=== PATIENT | male | born 1990 | race Caucasian/White ===

== ENCOUNTER 2018-03-31 10:51 | Outpatient (REF) | payer MEDICAID, SELFPAY ==
[2018-03-31 19:26] LABS: Abs Immature Grans 0.13 k/cumm (0.0-0.09); Absolute Basophil Count 0.05 k/cumm (0.0-0.2); Absolute Eosinophil Count 0.51 k/cumm (0.0-0.7); Absolute Lymphocyte Count 1.77 k/cumm (1.2-3.4); Absolute Monocyte Count 0.77 k/cumm (0.11-0.7); Absolute Neutrophil Count 3.99 k/cumm (1.2-6.7); Basophils % 0.7; Eosinophils % 7.1; HCT 50.6 % (40.0-50.0); HGB 17.7 g/dL (13.5-17.5); Immature Grans % 1.8; Lymphocytes % 24.5; Mean Corpuscular Hemoglobin 31.7 pg (27.0-33.0); Mean Corpuscular Volume 90.7 fL (80-95); Mean Platelet Volume 10.4 fL (8.0-11.0); Monocytes % 10.7; Neutrophils % 55.2; Platelet Count 238 x1000/uL (130-400); RBC 5.58 m/cumm (4.50-6.00); RBC Distribution Width 12.6 % (11.8-14.1); White Blood Cell Count 7.22 k/cumm (4.4-10.8)
[2018-03-31 19:29] LABS: ALT 63 U/L (12-78); AST 21 U/L (15-37); Albumin 4.1 g/dL (3.4-5.0); Alkaline Phosphatase 58 U/L (46-116); Anion Gap 6.5 mmol/L (3-11); BUN 14 mg/dL (7-18); Bilirubin, Total 0.6 mg/dL (0.2-1.0); CO2 27.5 mmol/L (21.0-32.0); CREATININE 0.84 mg/dL (0.70-1.30); Calcium 9.1 mg/dL (8.5-10.1); Chloride 104 mmol/L (98-107); Glucose 92 mg/dL (70-100); Potassium 4.2 mmol/L (3.5-5.1); Sodium 138 mmol/L (136-145); Total Protein 7.1 g/dL (6.4-8.2)
== END 2018-03-31 10:52 ==
LOC: NCHCN 10:51
PROVIDERS: PCP Physician Assistant; Visit Provider Nurse Practitioner Family
DX: K92.0 Hematemesis (principal)
CPT/HCPCS: 80053; 85025

== ENCOUNTER 2020-01-17 21:55 | Outpatient (REF) | payer OTHER, SELFPAY ==
[2020-01-17 20:39] LABS: Anion Gap 11.6 mmol/L (3-11); BUN 19 mg/dL (7-18); CO2 26.4 mmol/L (21.0-32.0); Calcium 9.1 mg/dL (8.5-10.1); Chloride 102 mmol/L (98-107); Glucose 83 mg/dL (74-106); Potassium 3.7 mmol/L (3.5-5.1); Sodium 140 mmol/L (136-145)
== END 2020-01-17 22:15 ==
LOC: NCHCN 21:55
PROVIDERS: PCP Physician Assistant; Visit Provider Physician Assistant
DX: I10 Essential (primary) hypertension (principal)
CPT/HCPCS: 80048

== ENCOUNTER 2022-04-21 10:59 | Outpatient (REF) | payer MEDICAID, SELFPAY ==
--- OUTSIDE RECORDS SUMMARY | 2022-04-21 11:02 | XMS_ITS | Continuity of Care Document ---
:1990 Author Organization [facility] Address Unavailable , Care Team Providers Name Role Phone Pau Strong Primary Care Physician Encounter [facility] Date(s): 03/23/22 - 04/09/22 [facility] [address] [place] [address]- Encounter Diagnosis Protein calorie malnutrition (Discharge Diagnosis) - 03/23/22 Encounter for continuous renal replacement therapy (CRRT) for acute renal failure (Discharge Diagnosis) - 03/23/22 Transaminitis (Discharge Diagnosis) - 03/23/22 ALTHEA (acute kidney injury) (Discharge Diagnosis) - 03/23/22 Physical deconditioning (Discharge Diagnosis) - 03/23/22 History of fasciotomy (Discharge Diagnosis) - 03/23/22 Rhabdomyolysis (Discharge Diagnosis) - 03/23/22 Acute COVID-19 (Discharge Diagnosis) - 03/23/22 Pneumonia (Discharge Diagnosis) - 03/23/22 Acute kidney failure, unspecified (Final) - Enterocolitis due to Clostridium difficile, not specified as recurrent (Final) - Essential (primary) hypertension (Final) - Anemia, unspecified (Final) - Cardiac arrest (Discharge Diagnosis) - 03/23/22 Compartment syndrome (Discharge Diagnosis) - 03/23/22 COVID-19 (Final) - Other cerebral infarction (Final) - Personal history of sudden cardiac arrest (Final) - Opioid use, unspecified, uncomplicated (Final) - 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 Extracted from: Title: SOAP Note: Rehab Note Author: Katheryn Rosa MD Date: 04/08/22 Health Status Allergies: Allergic Reactions (All) No Known Allergies, Allergies (1) Active Severity Reaction No Known Allergies None Documented Medications Current medications: (Selected) Inpatient Medications Ordered Colace: 100 mg = 1 cap(s), Oral, BID Dilaudid: 2 mg = 1 tab(s), Oral, q8hr, P RN: Pain Dulcolax Laxative: 10 mg = 1 supp, Per r ectum, Daily, PRN: Constipation MiraLax: 17 gm = 1 packet(s), Oral, Olga y, PRN: Constipation Norvasc: 10 mg = 2 tab(s), Oral, Daily Vitamin C: 500 mg = 1 tab(s), Oral, Olga y acetaminophen: 650 mg = 2 tab(s), Oral, q4hr, PRN: Pain apixaban: 5 mg = 1 tab(s), Oral, BID bacitracin zinc 500 units/g topical oint ment: 1 rickie, TOP, q8hr, PRN: Other (see comment) calcium carbonate: 500 mg = 1 tab(s), Or al, TID hydrOXYzine: 25 mg = 1 tab(s), Oral, HS, PRN: Anxiety miconazole topical: 1 rickie, TOP, TID multivitamin with minerals: 1 tab(s), Or al, Daily nicotine 14 mg/24 hr patch, extended rel ease: 14 mg = 1 patch(es), Transdermal, Daily nicotine patch removal: Removal of 1 pat ch(es), Transdermal, Daily senna: 17.2 mg = 2 tab(s), Oral, HS suboxone: 8 mg = 1 EA, Sublingual, BID Documented Medications Documented hydroCHLOROthiazide 25 mg oral tablet: 2 5 mg = 1 tab(s), Oral, Daily, 0 Refill(s) lisinopril 10 mg oral tablet: 10 mg = 1 tab(s), Oral, Daily, 0 Refill(s) predniSONE 20 mg oral tablet: 40 mg = 2 tab(s), Oral, Daily, 0 Refill(s) triamcinolone 0.1% topical cream: 1 rickie, TOP, TID, 0 Refill(s), Medications (17) Active Scheduled: (11) amLODIPine 5 mg Tab [[facility]] 10 mg 2 tab( s), Oral, Daily apixaban 5 mg tab [[facility]] 5 mg 1 tab(s), Oral, BID ascorbic acid 500 mg Tab [[facility]] 500 mg 1 tab(s), Oral, Daily buprenorphine/naloxone film 8 mg/2 mg [[facility]] 8 mg 1 EA, Sublingual, BID calcium carbonate 500 mg Chew Tab [[facility] ] 500 mg 1 tab(s), Oral, TID docusate sodium 100 mg Cap [[facility]] 100 m g 1 cap(s), Oral, BID miconazole Top 2% Pwdr [[facility]] 1 rickie, TO P, TID nicotine 14 mg/24 hr Transderm ER Film [ [facility]] 14 mg 1 patch(es), Transdermal, Daily nicotine patch removal [[facility]] Removal o f 1 patch(es), Transdermal, Daily senna 8.6 mg Tab [[facility]] 17.2 mg 2 tab(s ), Oral, HS Therapeutic Multi Vitamin & Minerals Tab [[facility]] 1 tab(s), Oral, Daily Continuous: (0) PRN: (6) acetaminophen 325 mg Tab [[facility]] 650 mg 2 tab(s), Oral, q4hr bacitracin zinc 500 units/g Top Oint UD [[facility]] 1 rickie, TOP, q8hr bisacodyl 10 mg Supp [[facility]] 10 mg 1 sup p, Per rectum, Daily HYDROmorphone 2 mg Tab [[facility]] 2 mg 1 ta b(s), Oral, q8hr hydrOXYzine hydrochloride 25 mg Tab [[facility]] 25 mg 1 tab(s), Oral, HS polyethylene glycol 3350 Oral Pwdr Recon [[facility]] 17 gm 1 packet(s), Oral, Daily . 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: lidia for, bakari for wound care of fasciotomy sites PT OT; made independent today in room #cardiac #HTN continue norvasc 10 for BPs outpatient echo recommended after discha rge #tachycardia checked EKG last week; findings ?chronic after cardiac arrest IVF given 03/26 with no change HR improved from 120s to 100s at rest #LLE DVT LLE pain behind the knee primarily and d iffuse edema heparin 5000 tid for DVT prophylaxis america nged to [facility] Tuesday 03/27 due to concern for DVT, u/s 03/29 confirmed distal femoral DVT edema and pain ongoing LLE much but impr pete overall #ALTHEA recheck BMP in am last Cr 0.5. #hypomagnesemia, resolved received IV Mag #LLE foot drop MPS, AFO EMG scheduled as outpatient with neuro c onsult. #Cdiff continue vanco until 03/26, 7d after Abx ended meropenem 03/19 #Covid given recent Covid infection, did not te st at admission. #anemia CBC in am, last Hb 8.9, 9.2 on admission trending up #Nutrition regular, marinol to stimulate appetite; pt declines at times #h/o opioid abuse initiated suboxone while at , now at d ose 8 mg bid which will stay stable Will need f/u with [facility] clinic at discharge [phone], arramged for 04/12 at 1pm #Pain managed with acetaminophen, dilaudid 2-4 q4 prn, goal to taper off dilaudid before discharge have cut back from 4 q4 prn to 2 q8 prn anticipate will not need prescription at discharge #DME The patient will need a wheelchair for m obility at time of discharge. Mobility limitations cannot be resolved with a cane or walker. The patient's home provides enough room to maneuver the wheelchair. T he patient will be using the wheelchair in his home for ADLs. The patient has enough upper body strength to self-propel the wheelchair. The patient will need the following wheelchair parts: standard [facility] 16 wide chair for proper fit, eleva ting leg rests for left lower extremity edema management, and a general purpose cushion for skin protection. #dispo home after 2 weeks, planning 04/09 to home f/u PCP, cards, suboxone clinic 04/12 at 1pm, wound care, EMG left foot drop #Potential or actual clinically signific ant medication issues addressed per CMS regulations: YES dilaudid reduced Did the facility complete prescribed/rec ommended actions in response to the identified potentially clinically significant medication issues by midnight of the next calendar day? YES Extracted from: Title: SOAP Note: Rehab Note Author: Katheryn Rosa MD Date: 04/07/22 Health Status Allergies: Allergic Reactions (All) No Known Allergies, Allergies (1) Active Severity Reaction No Known Allergies None Documented Medications Current medications: (Selected) Inpatient Medications Ordered Colace: 100 mg = 1 cap(s), Oral, BID Dilaudid: 2 mg = 1 tab(s), Oral, q6hr, P RN: Pain Dulcolax Laxative: 10 mg = 1 supp, Per r ectum, Daily, PRN: Constipation MiraLax: 17 gm = 1 packet(s), Oral, Olga y, PRN: Constipation Norvasc: 10 mg = 2 tab(s), Oral, Daily Vitamin C: 500 mg = 1 tab(s), Oral, Olga y acetaminophen: 650 mg = 2 tab(s), Oral, q4hr, PRN: Pain apixaban: 5 mg = 1 tab(s), Oral, BID bacitracin zinc 500 units/g topical oint ment: 1 rickie, TOP, q8hr, PRN: Other (see comment) calcium carbonate: 500 mg = 1 tab(s), Or al, TID hydrOXYzine: 25 mg = 1 tab(s), Oral, HS, PRN: Anxiety miconazole topical: 1 rickie, TOP, TID multivitamin with minerals: 1 tab(s), Or al, Daily nicotine 14 mg/24 hr patch, extended rel ease: 14 mg = 1 patch(es), Transdermal, Daily nicotine patch removal: Removal of 1 pat ch(es), Transdermal, Daily senna: 17.2 mg = 2 tab(s), Oral, HS suboxone: 8 mg = 1 EA, Sublingual, BID Documented Medications Documented hydroCHLOROthiazide 25 mg oral tablet: 2 5 mg = 1 tab(s), Oral, Daily, 0 Refill(s) lisinopril 10 mg oral tablet: 10 mg = 1 tab(s), Oral, Daily, 0 Refill(s) predniSONE 20 mg oral tablet: 40 mg = 2 tab(s), Oral, Daily, 0 Refill(s) triamcinolone 0.1% topical cream: 1 rickie, TOP, TID, 0 Refill(s), Medications (17) Active Scheduled: (11) amLODIPine 5 mg Tab [[facility]] 10 mg 2 tab( s), Oral, Daily apixaban 5 mg tab [[facility]] 5 mg 1 tab(s), Oral, BID ascorbic acid 500 mg Tab [[facility]] 500 mg 1 tab(s), Oral, Daily buprenorphine/naloxone film 8 mg/2 mg [[facility]] 8 mg 1 EA, Sublingual, BID calcium carbonate 500 mg Chew Tab [[facility] ] 500 mg 1 tab(s), Oral, TID docusate sodium 100 mg Cap [[facility]] 100 m g 1 cap(s), Oral, BID miconazole Top 2% Pwdr [[facility]] 1 rickie, TO P, TID nicotine 14 mg/24 hr Transderm ER Film [ [facility]] 14 mg 1 patch(es), Transdermal, Daily nicotine patch removal [[facility]] Removal o f 1 patch(es), Transdermal, Daily senna 8.6 mg Tab [[facility]] 17.2 mg 2 tab(s ), Oral, HS Therapeutic Multi Vitamin & Minerals Tab [[facility]] 1 tab(s), Oral, Daily Continuous: (0) PRN: (6) acetaminophen 325 mg Tab [[facility]] 650 mg 2 tab(s), Oral, q4hr bacitracin zinc 500 units/g Top Oint UD [[facility]] 1 rickie, TOP, q8hr bisacodyl 10 mg Supp [[facility]] 10 mg 1 sup p, Per rectum, Daily HYDROmorphone 2 mg Tab [[facility]] 2 mg 1 ta b(s), Oral, q6hr hydrOXYzine hydrochloride 25 mg Tab [[facility]] 25 mg 1 tab(s), Oral, HS polyethylene glycol 3350 Oral Pwdr Recon [[facility]] 17 gm 1 packet(s), Oral, Daily . 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: aqua for, telfa for wound care of fasciotomy sites PT OT; S up to CGA mobility and ADLs #cardiac #HTN continue norvasc 10 for BPs outpatient echo recommended after discha rge #tachycardia checked EKG last week; findings ?chronic after cardiac arrest IVF given 03/26 with no change HR improved from 120s to 100-110s at res t #LLE DVT LLE pain behind the knee primarily and d iffuse edema heparin 5000 tid for DVT prophylaxis america nged to [facility] Tuesday 03/27 due to concern for DVT, u/s 03/29 confirmed distal femoral DVT edema and pain ongoing LLE much but impr pete overall #ALTHEA recheck BMP in am last Cr 0.5. #hypomagnesemia, resolved received IV Mag #LLE foot drop MPS, AFO EMG scheduled as outpatient with neuro c onsult. #Cdiff continue vanco until 03/26, 7d after Abx ended meropenem 03/19 #Covid given recent Covid infection, did not te st at admission. #anemia CBC in am, last Hb 8.9, 9.2 on admission trending up #Nutrition regular, marinol to stimulate appetite; pt declines at times #h/o opioid abuse initiated suboxone while at , now at d ose 8 mg bid which will stay stable Will need f/u with [facility] suboxon e clinic at discharge [phone]. #Pain managed with acetaminophen, dilaudid 2-4 q4 prn, goal to taper off dilaudid before discharge have cut back from 4 q4 prn to 2 q6 prn as pt was unable to initiate this last week or over the weekend #DME The patient will need a wheelchair for m obility at time of discharge. Mobility limitations cannot be resolved with a cane or walker. The patient's home provides enough room to maneuver the wheelchair. T he patient will be using the wheelchair in his home for ADLs. The patient has enough upper body strength to self-propel the wheelchair. The patient will need the following wheelchair parts: standard [facility] 16 wide chair for proper fit, eleva ting leg rests for left lower extremity edema management, and a general purpose cushion for skin protection. #dispo home after 2 weeks, planning 04/09 to home f/u PCP, cards, suboxone clinic, wound c are, EMG left foot drop #Potential or actual clinically signific ant medication issues addressed per [facility] regulations: YES dilaudid reduced Did the facility complete prescribed/rec ommended actions in response to the identified potentially clinically significant medication issues by midnight of the next calendar day? YES Extracted from: Title: SOAP Note: Rehab Note Author: Katheryn Rosa MD Date: 04/06/22 Health Status Allergies: Allergic Reactions (All) No Known Allergies, Allergies (1) Active Severity Reaction No Known Allergies None Documented Medications Current medications: (Selected) Inpatient Medications Ordered Colace: 100 mg = 1 cap(s), Oral, BID Dilaudid: 2 mg = 1 tab(s), Oral, q4hr, P RN: Pain Dulcolax Laxative: 10 mg = 1 supp, Per r ectum, Daily, PRN: Constipation MiraLax: 17 gm = 1 packet(s), Oral, Olga y, PRN: Constipation Norvasc: 10 mg = 2 tab(s), Oral, Daily Vitamin C: 500 mg = 1 tab(s), Oral, Olga y acetaminophen: 650 mg = 2 tab(s), Oral, q4hr, PRN: Pain apixaban: 5 mg = 1 tab(s), Oral, BID bacitracin zinc 500 units/g topical oint ment: 1 rickie, TOP, q8hr, PRN: Other (see comment) calcium carbonate: 500 mg = 1 tab(s), Or al, TID hydrOXYzine: 25 mg = 1 tab(s), Oral, HS, PRN: Anxiety miconazole topical: 1 rickie, TOP, TID multivitamin with minerals: 1 tab(s), Or al, Daily nicotine 14 mg/24 hr patch, extended rel ease: 14 mg = 1 patch(es), Transdermal, Daily nicotine patch removal: Removal of 1 pat ch(es), Transdermal, Daily senna: 17.2 mg = 2 tab(s), Oral, HS suboxone: 8 mg = 1 EA, Sublingual, BID Documented Medications Documented hydroCHLOROthiazide 25 mg oral tablet: 2 5 mg = 1 tab(s), Oral, Daily, 0 Refill(s) lisinopril 10 mg oral tablet: 10 mg = 1 tab(s), Oral, Daily, 0 Refill(s) predniSONE 20 mg oral tablet: 40 mg = 2 tab(s), Oral, Daily, 0 Refill(s) triamcinolone 0.1% topical cream: 1 rickie, TOP, TID, 0 Refill(s), Medications (17) Active Scheduled: (11) amLODIPine 5 mg Tab [[facility]] 10 mg 2 tab( s), Oral, Daily apixaban 5 mg tab [[facility]] 5 mg 1 tab(s), Oral, BID ascorbic acid 500 mg Tab [[facility]] 500 mg 1 tab(s), Oral, Daily buprenorphine/naloxone film 8 mg/2 mg [[facility]] 8 mg 1 EA, Sublingual, BID calcium carbonate 500 mg Chew Tab [[facility] ] 500 mg 1 tab(s), Oral, TID docusate sodium 100 mg Cap [[facility]] 100 m g 1 cap(s), Oral, BID miconazole Top 2% Pwdr [[facility]] 1 rickie, TO P, TID nicotine 14 mg/24 hr Transderm ER Film [ [facility]] 14 mg 1 patch(es), Transdermal, Daily nicotine patch removal [[facility]] Removal o f 1 patch(es), Transdermal, Daily senna 8.6 mg Tab [[facility]] 17.2 mg 2 tab(s ), Oral, HS Therapeutic Multi Vitamin & Minerals Tab [[facility]] 1 tab(s), Oral, Daily Continuous: (0) PRN: (6) acetaminophen 325 mg Tab [[facility]] 650 mg 2 tab(s), Oral, q4hr bacitracin zinc 500 units/g Top Oint UD [[facility]] 1 rickie, TOP, q8hr bisacodyl 10 mg Supp [[facility]] 10 mg 1 sup p, Per rectum, Daily HYDROmorphone 2 mg Tab [[facility]] 2 mg 1 ta b(s), Oral, q4hr hydrOXYzine hydrochloride 25 mg Tab [[facility]] 25 mg 1 tab(s), Oral, HS polyethylene glycol 3350 Oral Pwdr Recon [[facility]] 17 gm 1 packet(s), Oral, Daily . 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: aqua for, telfa for wound care of fasciotomy sites PT OT; S-CGA mobility and ADLs #cardiac #HTN continue norvasc 10 for BPs outpatient echo recommended after discha rge #tachycardia checked EKG last week; findings ?chronic after cardiac arrest IVF given 03/26 with no change HR improved from 120s to 100-110s at res t #LLE DVT LLE pain behind the knee primarily and d iffuse edema heparin 5000 tid for DVT prophylaxis america nged to [facility] Tuesday 03/27 due to concern for DVT, u/s 03/29 confirmed distal femoral DVT edema and pain ongoing LLE much but impr pete overall #ALTHEA recheck BMP in am last Cr 0.5. #hypomagnesemia, resolved received IV Mag #LLE foot drop MPS, AFO EMG scheduled as outpatient with neuro c onsult. #Cdiff continue vanco until 03/26, 7d after Abx ended meropenem 03/19 #Covid given recent Covid infection, did not te st at admission. #anemia CBC in am, last Hb 8.9, 9.2 on admission trending up #Nutrition regular, marinol to stimulate appetite; pt declines at times #h/o opioid abuse initiated suboxone while at , now at d ose 8 mg bid which will stay stable Will need f/u with [facility] suboxon e clinic at discharge [phone]. #Pain managed with acetaminophen, dilaudid 2-4 q4 prn, goal to taper off dilaudid before discharge will cut back from 4 to 2 as pt has been unable to initiate this last week or over the weekend #dispo home after 2 weeks, planning 04/09 to home f/u PCP, cards, suboxone clinic, wound c are, EMG left foot drop #Potential or actual clinically signific ant medication issues addressed per CMS regulations: NO Extracted from: Title: SOAP Note: Rehab Note Author: Katheryn Rosa MD Date: 04/02/22 Health Status Allergies: Allergic Reactions (All) No Known Allergies, Allergies (1) Active Severity Reaction No Known Allergies None Documented Medications Current medications: (Selected) Inpatient Medications Ordered Colace: 100 mg = 1 cap(s), Oral, BID Dilaudid: 2 mg = 1 tab(s), Oral, q4hr, P RN: Pain Dilaudid: 4 mg = 2 tab(s), Oral, q4hr, P RN: Pain - Severe Dulcolax Laxative: 10 mg = 1 supp, Per r ectum, Daily, PRN: Constipation MiraLax: 17 gm = 1 packet(s), Oral, Olga y, PRN: Constipation Norvasc: 10 mg = 2 tab(s), Oral, Daily Vitamin C: 500 mg = 1 tab(s), Oral, Olga y acetaminophen: 650 mg = 2 tab(s), Oral, q4hr, PRN: Pain apixaban: 10 mg = 2 tab(s), Oral, BID bacitracin zinc 500 units/g topical oint ment: 1 rickie, TOP, q8hr, PRN: Other (see comment) calcium carbonate: 500 mg = 1 tab(s), Or al, TID hydrOXYzine: 25 mg = 1 tab(s), Oral, HS, PRN: Anxiety miconazole topical: 1 rickie, TOP, TID multivitamin with minerals: 1 tab(s), Or al, Daily nicotine 14 mg/24 hr patch, extended rel ease: 14 mg = 1 patch(es), Transdermal, Daily nicotine patch removal: Removal of 1 pat ch(es), Transdermal, Daily senna: 17.2 mg = 2 tab(s), Oral, HS suboxone: 8 mg = 1 EA, Sublingual, BID Documented Medications Documented hydroCHLOROthiazide 25 mg oral tablet: 2 5 mg = 1 tab(s), Oral, Daily, 0 Refill(s) lisinopril 10 mg oral tablet: 10 mg = 1 tab(s), Oral, Daily, 0 Refill(s) predniSONE 20 mg oral tablet: 40 mg = 2 tab(s), Oral, Daily, 0 Refill(s) triamcinolone 0.1% topical cream: 1 rickie, TOP, TID, 0 Refill(s), Medications (18) Active Scheduled: (11) amLODIPine 5 mg Tab [[facility]] 10 mg 2 tab( s), Oral, Daily apixaban 5 mg tab [[facility]] 10 mg 2 tab(s) , Oral, BID ascorbic acid 500 mg Tab [[facility]] 500 mg 1 tab(s), Oral, Daily buprenorphine/naloxone film 8 mg/2 mg [[facility]] 8 mg 1 EA, Sublingual, BID calcium carbonate 500 mg Chew Tab [[facility] ] 500 mg 1 tab(s), Oral, TID docusate sodium 100 mg Cap [[facility]] 100 m g 1 cap(s), Oral, BID miconazole Top 2% Pwdr [[facility]] 1 rickie, TO P, TID nicotine 14 mg/24 hr Transderm ER Film [ [facility]] 14 mg 1 patch(es), Transdermal, Daily nicotine patch removal [[facility]] Removal o f 1 patch(es), Transdermal, Daily senna 8.6 mg Tab [[facility]] 17.2 mg 2 tab(s ), Oral, HS Therapeutic Multi Vitamin & Minerals Tab [[facility]] 1 tab(s), Oral, Daily Continuous: (0) PRN: (7) acetaminophen 325 mg Tab [[facility]] 650 mg 2 tab(s), Oral, q4hr bacitracin zinc 500 units/g Top Oint UD [[facility]] 1 rickie, TOP, q8hr bisacodyl 10 mg Supp [[facility]] 10 mg 1 sup p, Per rectum, Daily HYDROmorphone 2 mg Tab [[facility]] 2 mg 1 ta b(s), Oral, q4hr HYDROmorphone 2 mg Tab [[facility]] 4 mg 2 ta b(s), Oral, q4hr hydrOXYzine hydrochloride 25 mg Tab [[facility]] 25 mg 1 tab(s), Oral, HS polyethylene glycol 3350 Oral Pwdr Recon [[facility]] 17 gm 1 packet(s), Oral, Daily . 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: aqua for, telfa for wound care of fasciotomy sites PT OT; has resumed therapies now pain is better controlled #cardiac #HTN continue norvasc 10 for BPs outpatient echo recommended after discha rge #tachycardia checked EKG last week; findings ?chronic after cardiac arrest IVF given 03/26 with no change HR improved from 120s to 110s at rest #LLE DVT LLE pain behind the knee primarily and d iffuse edema heparin 5000 tid for DVT prophylaxis america nged to [facility] Tuesday 03/27 due to concern for DVT, u/s 03/29 confirmed distal femoral DVT edema and pain ongoing LLE but improved #ALTHEA recheck BMP in am last Cr 0.5. #hypomagnesemia, resolved received IV Mag #LLE foot drop MPS, AFO EMG scheduled as outpatient with neuro c onsult. #Cdiff continue vanco until 03/26, 7d after Abx ended meropenem 03/19 #Covid given recent Covid infection, did not te st at admission. #anemia CBC in am, last Hb 8.9, 9.2 on admission trending up #Nutrition regular, marinol to stimulate appetite; pt declines at times #h/o opioid abuse initiated suboxone while at , now at d ose 8 mg bid which will stay stable Will need f/u with [facility] suboxon e clinic at discharge [phone]. #Pain managed with acetaminophen, dilaudid 2-4 q4 prn, goal to taper off dilaudid before discharge discussed reducing dose to 2mg prn if ab le, needs encouragement to do so #dispo home after 2 weeks, planning 04/09 to home f/u PCP, cards, suboxone clinic, wound c are, EMG left foot drop #Potential or actual clinically signific ant medication issues addressed per [facility] regulations: NO ADDENDUM 15 min >50% spent on counsellin g and coordination of care Extracted from: Title: SOAP Note: Rehab Note Author: Katheryn Rosa MD Date: 04/01/22 Health Status Allergies: Allergic Reactions (All) No Known Allergies, Allergies (1) Active Severity Reaction No Known Allergies None Documented Medications Current medications: (Selected) Inpatient Medications Ordered Colace: 100 mg = 1 cap(s), Oral, BID Dilaudid: 2 mg = 1 tab(s), Oral, q4hr, P RN: Pain Dilaudid: 4 mg = 2 tab(s), Oral, q4hr, P RN: Pain - Severe Dulcolax Laxative: 10 mg = 1 supp, Per r ectum, Daily, PRN: Constipation Marinol: 10 mg = 2 cap(s), Oral, BID MiraLax: 17 gm = 1 packet(s), Oral, Olga y, PRN: Constipation Norvasc: 10 mg = 2 tab(s), Oral, Daily Vitamin C: 500 mg = 1 tab(s), Oral, Olga y acetaminophen: 650 mg = 2 tab(s), Oral, q4hr, PRN: Pain apixaban: 10 mg = 2 tab(s), Oral, BID bacitracin zinc 500 units/g topical oint ment: 1 rickie, TOP, q8hr, PRN: Other (see comment) calcium carbonate: 500 mg = 1 tab(s), Or al, TID hydrOXYzine: 25 mg = 1 tab(s), Oral, HS, PRN: Anxiety miconazole topical: 1 rickie, TOP, TID multivitamin with minerals: 1 tab(s), Or al, Daily nicotine 14 mg/24 hr patch, extended rel ease: 14 mg = 1 patch(es), Transdermal, Daily nicotine patch removal: Removal of 1 pat ch(es), Transdermal, Daily senna: 17.2 mg = 2 tab(s), Oral, HS suboxone: 8 mg = 1 EA, Sublingual, BID Documented Medications Documented hydroCHLOROthiazide 25 mg oral tablet: 2 5 mg = 1 tab(s), Oral, Daily, 0 Refill(s) lisinopril 10 mg oral tablet: 10 mg = 1 tab(s), Oral, Daily, 0 Refill(s) predniSONE 20 mg oral tablet: 40 mg = 2 tab(s), Oral, Daily, 0 Refill(s) triamcinolone 0.1% topical cream: 1 rickie, TOP, TID, 0 Refill(s), Medications (19) Active Scheduled: (12) amLODIPine 5 mg Tab [[facility]] 10 mg 2 tab( s), Oral, Daily apixaban 5 mg tab [[facility]] 10 mg 2 tab(s) , Oral, BID ascorbic acid 500 mg Tab [[facility]] 500 mg 1 tab(s), Oral, Daily buprenorphine/naloxone film 8 mg/2 mg [[facility]] 8 mg 1 EA, Sublingual, BID calcium carbonate 500 mg Chew Tab [[facility] ] 500 mg 1 tab(s), Oral, TID docusate sodium 100 mg Cap [[facility]] 100 m g 1 cap(s), Oral, BID dronabinol 5 mg Cap [[facility]} 10 mg 2 cap( s), Oral, BID miconazole Top 2% Pwdr [[facility]] 1 rickie, TO P, TID nicotine 14 mg/24 hr Transderm ER Film [ [facility]] 14 mg 1 patch(es), Transdermal, Daily nicotine patch removal [[facility]] Removal o f 1 patch(es), Transdermal, Daily senna 8.6 mg Tab [[facility]] 17.2 mg 2 tab(s ), Oral, HS Therapeutic Multi Vitamin & Minerals Tab [[facility]] 1 tab(s), Oral, Daily Continuous: (0) PRN: (7) acetaminophen 325 mg Tab [[facility]] 650 mg 2 tab(s), Oral, q4hr bacitracin zinc 500 units/g Top Oint UD [[facility]] 1 rickie, TOP, q8hr bisacodyl 10 mg Supp [[facility]] 10 mg 1 sup p, Per rectum, Daily HYDROmorphone 2 mg Tab [[facility]] 2 mg 1 ta b(s), Oral, q4hr HYDROmorphone 2 mg Tab [[facility]] 4 mg 2 ta b(s), Oral, q4hr hydrOXYzine hydrochloride 25 mg Tab [[facility]] 25 mg 1 tab(s), Oral, HS polyethylene glycol 3350 Oral Pwdr Recon [[facility]] 17 gm 1 packet(s), Oral, Daily . 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: aqua for, telfa for wound care of fasciotomy sites PT OT; has resumed therapies now pain is better controlled #cardiac #HTN continue norvasc 10 for BPs outpatient echo recommended after discha rge #tachycardia checked EKG last week; findings ?chronic after cardiac arrest IVF given 03/26 with no change HR improved from 120s to 110s at rest #LLE DVT LLE pain behind the knee primarily and d iffuse edema heparin 5000 tid for DVT prophylaxis america nged to eliquis Tuesday 03/27 due to concern for DVT, u/s 03/29 confirmed distal femoral DVT edema and pain ongoing LLE but improving #ALTHEA recheck BMP in am last Cr 0.5. #hypomagnesemia, resolved received IV Mag #LLE foot drop MPS, AFO EMG scheduled as outpatient with neuro c onsult. #Cdiff continue vanco until 03/26, 7d after Abx ended meropenem 03/19 #Covid given recent Covid infection, did not te st at admission. #anemia CBC in am, last Hb 8.9, 9.2 on admission trending up #Nutrition regular, marinol to stimulate appetite; pt declines at times #h/o opioid abuse initiated suboxone while at , now at d ose 8 mg bid which will stay stable Will need f/u with [facility] at discharge [phone]. #Pain managed with acetaminophen, dilaudid 2-4 q4 prn, goal to taper off dilaudid before discharge discussed reducing dose to 2mg prn if ab le #dispo home after 2 weeks, planning 04/09 to home f/u PCP, cards, suboxone clinic, wound c are, EMG left foot drop #Potential or actual clinically signific ant medication issues addressed per CMS regulations: NO Extracted from: Title: SOAP Note: Rehab Note Author: Katheryn Rosa MD Date: Health Status Allergies: Allergic Reactions (All) No Known Allergies, Allergies (1) Active Severity Reaction No Known Allergies None Documented Medications Current medications: (Selected) Inpatient Medications Ordered Colace: 100 mg = 1 cap(s), Oral, BID Dilaudid: 2 mg = 1 tab(s), Oral, q4hr, P RN: Pain Dilaudid: 4 mg = 2 tab(s), Oral, q4hr, P RN: Pain - Severe Dulcolax Laxative: 10 mg = 1 supp, Per r ectum, Daily, PRN: Constipation Marinol: 10 mg = 4 cap(s), Oral, BID MiraLax: 17 gm = 1 packet(s), Oral, Olga y, PRN: Constipation Norvasc: 10 mg = 2 tab(s), Oral, Daily Vitamin C: 500 mg = 1 tab(s), Oral, Olga y acetaminophen: 650 mg = 2 tab(s), Oral, q4hr, PRN: Pain apixaban: 10 mg = 2 tab(s), Oral, BID bacitracin zinc 500 units/g topical oint ment: 1 rickie, TOP, q8hr, PRN: Other (see comment) calcium carbonate: 500 mg = 1 tab(s), Or al, TID hydrOXYzine: 25 mg = 1 tab(s), Oral, HS, PRN: Anxiety miconazole topical: 1 rickie, TOP, TID multivitamin with minerals: 1 tab(s), Or al, Daily nicotine 14 mg/24 hr patch, extended rel ease: 14 mg = 1 patch(es), Transdermal, Daily nicotine patch removal: Removal of 1 pat ch(es), Transdermal, Daily senna: 17.2 mg = 2 tab(s), Oral, HS suboxone: 8 mg = 1 EA, Sublingual, BID Documented Medications Documented hydroCHLOROthiazide 25 mg oral tablet: 2 5 mg = 1 tab(s), Oral, Daily, 0 Refill(s) lisinopril 10 mg oral tablet: 10 mg = 1 tab(s), Oral, Daily, 0 Refill(s) predniSONE 20 mg oral tablet: 40 mg = 2 tab(s), Oral, Daily, 0 Refill(s) triamcinolone 0.1% topical cream: 1 rickie, TOP, TID, 0 Refill(s), Medications (19) Active Scheduled: (12) amLODIPine 5 mg Tab [[facility]] 10 mg 2 tab( s), Oral, Daily apixaban 5 mg tab [[facility]] 10 mg 2 tab(s) , Oral, BID ascorbic acid 500 mg Tab [[facility]] 500 mg 1 tab(s), Oral, Daily buprenorphine/naloxone film 8 mg/2 mg [[facility]] 8 mg 1 EA, Sublingual, BID calcium carbonate 500 mg Chew Tab [[facility] ] 500 mg 1 tab(s), Oral, TID docusate sodium 100 mg Cap [[facility]] 100 m g 1 cap(s), Oral, BID dronabinol 2.5 mg Cap [facility] 10 mg 4 ca p(s), Oral, BID miconazole Top 2% Pwdr [[facility]] 1 rickie, TO P, TID nicotine 14 mg/24 hr Transderm ER Film [ [facility]] 14 mg 1 patch(es), Transdermal, Daily nicotine patch removal [[facility]] Removal o f 1 patch(es), Transdermal, Daily senna 8.6 mg Tab [[facility]] 17.2 mg 2 tab(s ), Oral, HS Therapeutic Multi Vitamin & Minerals Tab [[facility]] 1 tab(s), Oral, Daily Continuous: (0) PRN: (7) acetaminophen 325 mg Tab [[facility]] 650 mg 2 tab(s), Oral, q4hr bacitracin zinc 500 units/g Top Oint UD [[facility]] 1 rickie, TOP, q8hr bisacodyl 10 mg Supp [[facility]] 10 mg 1 sup p, Per rectum, Daily HYDROmorphone 2 mg Tab [[facility]] 2 mg 1 ta b(s), Oral, q4hr HYDROmorphone 2 mg Tab [[facility]] 4 mg 2 ta b(s), Oral, q4hr hydrOXYzine hydrochloride 25 mg Tab [[facility]] 25 mg 1 tab(s), Oral, HS polyethylene glycol 3350 Oral Pwdr Recon [[facility]] 17 gm 1 packet(s), Oral, Daily . 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 #hypomagnesemia, resolved received IV Mag #LLE foot drop MPS, AFO EMG scheduled as outpatient with neuro c onsult. #Cdiff continue vanco until 03/26, 7d after Abx ended meropenem 03/19 #Covid given recent Covid infection, did not te st at admission. #anemia CBC in am, last Hb 8.9, 9.2 on admission trending up #Nutrition regular, marinol to stimulate appetite; pt declines at times #h/o opioid abuse initiated suboxone while at , now at d ose 8 mg bid which will stay stable Will need f/u with [facility] at discharge [phone]. #Pain managed with acetaminophen, dilaudid 2-4 q4 prn, goal to taper off dilaudid before discharge #dispo home after 2 weeks, planning 04/09 to home f/u PCP, cards, suboxone clinic, wound c are, EMG left foot drop #Potential or actual clinically signific ant medication issues addressed per [facility] regulations: NO Extracted from: Title: SOAP Note: Rehab Note Author: Katheryn Rosa MD Date: Health Status Allergies: Allergic Reactions (All) No Known Allergies, Allergies (1) Active Severity Reaction No Known Allergies None Documented Medications Current medications: (Selected) Inpatient Medications Ordered Colace: 100 mg = 1 cap(s), Oral, BID Dilaudid: 2 mg = 1 tab(s), Oral, q4hr, P RN: Pain Dilaudid: 4 mg = 2 tab(s), Oral, q4hr, P RN: Pain - Severe Dulcolax Laxative: 10 mg = 1 supp, Per r ectum, Daily, PRN: Constipation Marinol: 10 mg = 4 cap(s), Oral, BID MiraLax: 17 gm = 1 packet(s), Oral, Olga y, PRN: Constipation Norvasc: 10 mg = 2 tab(s), Oral, Daily Vitamin C: 500 mg = 1 tab(s), Oral, Olga y acetaminophen: 650 mg = 2 tab(s), Oral, q4hr, PRN: Pain apixaban: 10 mg = 2 tab(s), Oral, BID bacitracin zinc 500 units/g topical oint ment: 1 rickie, TOP, q8hr, PRN: Other (see comment) calcium carbonate: 500 mg = 1 tab(s), Or al, TID hydrOXYzine: 25 mg = 1 tab(s), Oral, HS, PRN: Anxiety miconazole topical: 1 rickie, TOP, TID multivitamin with minerals: 1 tab(s), Or al, Daily nicotine 14 mg/24 hr patch, extended rel ease: 14 mg = 1 patch(es), Transdermal, Daily nicotine patch removal: Removal of 1 pat ch(es), Transdermal, Daily senna: 17.2 mg = 2 tab(s), Oral, HS suboxone: 8 mg = 1 EA, Sublingual, BID Documented Medications Documented hydroCHLOROthiazide 25 mg oral tablet: 2 5 mg = 1 tab(s), Oral, Daily, 0 Refill(s) lisinopril 10 mg oral tablet: 10 mg = 1 tab(s), Oral, Daily, 0 Refill(s) predniSONE 20 mg oral tablet: 40 mg = 2 tab(s), Oral, Daily, 0 Refill(s) triamcinolone 0.1% topical cream: 1 rickie, TOP, TID, 0 Refill(s), Medications (19) Active Scheduled: (12) amLODIPine 5 mg Tab [[facility]] 10 mg 2 tab( s), Oral, Daily apixaban 5 mg tab [[facility]] 10 mg 2 tab(s) , Oral, BID ascorbic acid 500 mg Tab [[facility]] 500 mg 1 tab(s), Oral, Daily buprenorphine/naloxone film 8 mg/2 mg [[facility]] 8 mg 1 EA, Sublingual, BID calcium carbonate 500 mg Chew Tab [[facility] ] 500 mg 1 tab(s), Oral, TID docusate sodium 100 mg Cap [[facility]] 100 m g 1 cap(s), Oral, BID dronabinol 2.5 mg Cap [[facility]] 10 mg 4 ca p(s), Oral, BID miconazole Top 2% Pwdr [[facility]] 1 rickie, TO P, TID nicotine 14 mg/24 hr Transderm ER Film [ [facility]] 14 mg 1 patch(es), Transdermal, Daily nicotine patch removal [[facility]] Removal o f 1 patch(es), Transdermal, Daily senna 8.6 mg Tab [[facility]] 17.2 mg 2 tab(s ), Oral, HS Therapeutic Multi Vitamin & Minerals Tab [[facility]] 1 tab(s), Oral, Daily Continuous: (0) PRN: (7) acetaminophen 325 mg Tab [[facility]] 650 mg 2 tab(s), Oral, q4hr bacitracin zinc 500 units/g Top Oint UD [[facility]] 1 rickie, TOP, q8hr bisacodyl 10 mg Supp [[facility]] 10 mg 1 sup p, Per rectum, Daily HYDROmorphone 2 mg Tab [[facility]] 2 mg 1 ta b(s), Oral, q4hr HYDROmorphone 2 mg Tab [[facility]] 4 mg 2 ta b(s), Oral, q4hr hydrOXYzine hydrochloride 25 mg Tab [[facility]] 25 mg 1 tab(s), Oral, HS polyethylene glycol 3350 Oral Pwdr Recon [[facility]] 17 gm 1 packet(s), Oral, Daily . 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 #hypomagnesemia, resolved received IV Mag #LLE foot drop MPS, AFO EMG scheduled as outpatient with neuro c onsult. #Cdiff continue vanco until 03/26, 7d after Abx ended meropenem 03/19 #Covid given recent Covid infection, did not te st at admission. #anemia CBC in am, last Hb 8.9, 9.2 on admission trending up #Nutrition regular, marinol to stimulate appetite; pt declines at times #h/o opioid abuse initiated suboxone while at , now at d ose 8 mg bid which will stay stable [facility] [phone]. #Pain managed with acetaminophen, dilaudid 2-4 q4 prn, goal to taper off dilaudid before discharge #dispo home after 2 weeks, planning 04/09 to home f/u PCP, cards, suboxone clinic, wound c are, EMG left foot drop #Potential or actual clinically signific ant medication issues addressed per CMS regulations: NO Extracted from: Title: SOAP Note: Rehab Note Author: Katheryn Rosa MD Date: Health Status Allergies: Allergic Reactions (All) No Known Allergies, Allergies (1) Active Severity Reaction No Known Allergies None Documented Medications Current medications: (Selected) Inpatient Medications Ordered Colace: 100 mg = 1 cap(s), Oral, BID Dilaudid: 2 mg = 1 tab(s), Oral, q4hr, P RN: Pain Dilaudid: 4 mg = 2 tab(s), Oral, q4hr, P RN: Pain - Severe Dulcolax Laxative: 10 mg = 1 supp, Per r ectum, Daily, PRN: Constipation Marinol: 10 mg = 4 cap(s), Oral, BID MiraLax: 17 gm = 1 packet(s), Oral, Olga y, PRN: Constipation NS 1,000 mL: 150 mL/hr, IV Norvasc: 10 mg = 2 tab(s), Oral, Daily Vitamin C: 500 mg = 1 tab(s), Oral, Olga y acetaminophen: 650 mg = 2 tab(s), Oral, q4hr, PRN: Pain apixaban: 10 mg = 2 tab(s), Oral, BID bacitracin zinc 500 units/g topical oint ment: 1 rickie, TOP, q8hr, PRN: Other (see comment) calcium carbonate: 500 mg = 1 tab(s), Or al, TID hydrOXYzine: 25 mg = 1 tab(s), Oral, HS, PRN: Anxiety miconazole topical: 1 rickie, TOP, TID multivitamin with minerals: 1 tab(s), Or al, Daily nicotine 14 mg/24 hr patch, extended rel ease: 14 mg = 1 patch(es), Transdermal, Daily nicotine patch removal: Removal of 1 pat ch(es), Transdermal, Daily senna: 17.2 mg = 2 tab(s), Oral, HS suboxone: 8 mg = 1 EA, Sublingual, BID Documented Medications Documented hydroCHLOROthiazide 25 mg oral tablet: 2 5 mg = 1 tab(s), Oral, Daily, 0 Refill(s) lisinopril 10 mg oral tablet: 10 mg = 1 tab(s), Oral, Daily, 0 Refill(s) predniSONE 20 mg oral tablet: 40 mg = 2 tab(s), Oral, Daily, 0 Refill(s) triamcinolone 0.1% topical cream: 1 rickie, TOP, TID, 0 Refill(s), Medications (20) Active Scheduled: (12) amLODIPine 5 mg Tab [[facility]] 10 mg 2 tab( s), Oral, Daily apixaban 5 mg tab [[facility]] 10 mg 2 tab(s) , Oral, BID ascorbic acid 500 mg Tab [[facility]] 500 mg 1 tab(s), Oral, Daily buprenorphine/naloxone film 8 mg/2 mg [[facility]] 8 mg 1 EA, Sublingual, BID calcium carbonate 500 mg Chew Tab [[facility] ] 500 mg 1 tab(s), Oral, TID docusate sodium 100 mg Cap [[facility]] 100 m g 1 cap(s), Oral, BID dronabinol 2.5 mg Cap [[facility]] 10 mg 4 ca p(s), Oral, BID miconazole Top 2% Pwdr [[facility]] 1 rickie, TO P, TID nicotine 14 mg/24 hr Transderm ER Film [ [facility]] 14 mg 1 patch(es), Transdermal, Daily nicotine patch removal [[facility]] Removal o f 1 patch(es), Transdermal, Daily senna 8.6 mg Tab [[facility]] 17.2 mg 2 tab(s ), Oral, HS Therapeutic Multi Vitamin & Minerals Tab [[facility]] 1 tab(s), Oral, Daily Continuous: (1) Sodium Chloride 0.9% 1,000 mL 1,000 mL, IV, 150 mL/hr PRN: (7) acetaminophen 325 mg Tab [[facility]] 650 mg 2 tab(s), Oral, q4hr bacitracin zinc 500 units/g Top Oint UD [[facility]] 1 rickie, TOP, q8hr bisacodyl 10 mg Supp [[facility]] 10 mg 1 sup p, Per rectum, Daily HYDROmorphone 2 mg Tab [[facility]] 2 mg 1 ta b(s), Oral, q4hr HYDROmorphone 2 mg Tab [[facility]] 4 mg 2 ta b(s), Oral, q4hr hydrOXYzine hydrochloride 25 mg Tab [[facility]] 25 mg 1 tab(s), Oral, HS polyethylene glycol 3350 Oral Pwdr Recon [[facility]] 17 gm 1 packet(s), Oral, Daily . 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 #hypomagnesemia IV Mag #LLE foot drop MPS, AFO EMG scheduled as outpatient with neuro c onsult. #Cdiff continue vanco until 03/26, 7d after Abx ended meropenem 03/19 #Covid given recent Covid infection, did not te st at admission. #anemia CBC in am, last Hb 8.9, 9.2 on admission trending up #Nutrition regular, marinol to stimulate appetite; pt declines at times #h/o opioid abuse initiated suboxone while at , now at d ose 8 mg bid which will stay stable Will need f/u with [facility] at discharge [phone]. #Pain managed with acetaminophen, dilaudid 2-4 q4 prn, goal to taper off dilaudid before discharge #dispo home after 2 weeks, planning 04/09 to home f/u PCP, cards, suboxone clinic, wound c are #Potential or actual clinically signific ant medication issues addressed per [facility] regulations: NO Extracted from: Title: SOAP Note: Rehab Note Author: Katheryn Rosa MD Date: Health Status Allergies: Allergic Reactions (All) No Known Allergies, Allergies (1) Active Severity Reaction No Known Allergies None Documented Medications Current medications: (Selected) Inpatient Medications Ordered Colace: 100 mg = 1 cap(s), Oral, BID Dilaudid: 2 mg = 1 tab(s), Oral, q4hr, P RN: Pain Dilaudid: 4 mg = 2 tab(s), Oral, q4hr, P RN: Pain - Severe Dulcolax Laxative: 10 mg = 1 supp, Per r ectum, Daily, PRN: Constipation Marinol: 10 mg = 4 cap(s), Oral, BID MiraLax: 17 gm = 1 packet(s), Oral, Olga y, PRN: Constipation NS 1,000 mL: 150 mL/hr, IV Norvasc: 10 mg = 2 tab(s), Oral, Daily Vitamin C: 500 mg = 1 tab(s), Oral, Olga y acetaminophen: 650 mg = 2 tab(s), Oral, q4hr, PRN: Pain bacitracin zinc 500 units/g topical oint ment: 1 rickie, TOP, q8hr, PRN: Other (see comment) calcium carbonate: 500 mg = 1 tab(s), Or al, TID heparin: 5,000 unit(s) = 0.5 mL, Subcuta neous, q8hr hydrOXYzine: 25 mg = 1 tab(s), Oral, HS, PRN: Anxiety magnesium sulfate: 2 gm = 50 mL, 25 mL/h r, IV Piggyback, q2hr miconazole topical: 1 rickie, TOP, TID multivitamin with minerals: 1 tab(s), Or al, Daily nicotine 14 mg/24 hr patch, extended rel ease: 14 mg = 1 patch(es), Transdermal, Daily nicotine patch removal: Removal of 1 pat ch(es), Transdermal, Daily senna: 17.2 mg = 2 tab(s), Oral, HS suboxone: 8 mg = 1 EA, Sublingual, BID vancomycin: 125 mg = 1 cap(s), Oral, QID Documented Medications Documented hydroCHLOROthiazide 25 mg oral tablet: 2 5 mg = 1 tab(s), Oral, Daily, 0 Refill(s) lisinopril 10 mg oral tablet: 10 mg = 1 tab(s), Oral, Daily, 0 Refill(s) predniSONE 20 mg oral tablet: 40 mg = 2 tab(s), Oral, Daily, 0 Refill(s) triamcinolone 0.1% topical cream: 1 rickie, TOP, TID, 0 Refill(s), Medications (22) Active Scheduled: (14) amLODIPine 5 mg Tab [[facility]] 10 mg 2 tab( s), Oral, Daily ascorbic acid 500 mg Tab [[facility]] 500 mg 1 tab(s), Oral, Daily buprenorphine/naloxone film 8 mg/2 mg [[facility]] 8 mg 1 EA, Sublingual, BID calcium carbonate 500 mg Chew Tab [[facility] ] 500 mg 1 tab(s), Oral, TID docusate sodium 100 mg Cap [[facility]] 100 m g 1 cap(s), Oral, BID dronabinol 2.5 mg Cap [[facility]] 10 mg 4 ca p(s), Oral, BID heparin 10,000 units/mL Inj Belén [[facility]] 5,000 unit(s) 0.5 mL, Subcutaneous, q8hr magnesium sulfate 2 gm 50 mL, IV Piggyba ck, q2hr miconazole Top 2% Pwdr [[facility]] 1 rickie, TO P, TID nicotine 14 mg/24 hr Transderm ER Film [ [facility]] 14 mg 1 patch(es), Transdermal, Daily nicotine patch removal [[facility]] Removal o f 1 patch(es), Transdermal, Daily senna 8.6 mg Tab [[facility]] 17.2 mg 2 tab(s ), Oral, HS Therapeutic Multi Vitamin & Minerals Tab [[facility]] 1 tab(s), Oral, Daily vancomycin 125 mg Cap [[facility]] 125 mg 1 c ap(s), Oral, QID Continuous: (1) Sodium Chloride 0.9% 1,000 mL 1,000 mL, IV, 150 mL/hr PRN: (7) acetaminophen 325 mg Tab [[facility]] 650 mg 2 tab(s), Oral, q4hr bacitracin zinc 500 units/g Top Oint UD [[facility]] 1 rickie, TOP, q8hr bisacodyl 10 mg Supp [[facility]] 10 mg 1 sup p, Per rectum, Daily HYDROmorphone 2 mg Tab [[facility]] 2 mg 1 ta b(s), Oral, q4hr HYDROmorphone 2 mg Tab [[facility]] 4 mg 2 ta b(s), Oral, q4hr hydrOXYzine hydrochloride 25 mg Tab [[facility]] 25 mg 1 tab(s), Oral, HS polyethylene glycol 3350 Oral Pwdr Recon [[facility]] 17 gm 1 packet(s), Oral, Daily . 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 #ALTHEA recheck BMP in am last Cr 0.5. #hypomagnesemia IV Mag #LLE foot drop MPS, AFO EMG scheduled as outpatient with neuro c onsult. #Cdiff continue vanco until 03/26, 7d after Abx ended meropenem 03/19 #Covid given recent Covid infection, will not t est at admission. #anemia CBC in am, last Hb 8.9, 9.2 on admission trending up #Nutrition regular, marinol to stimulate appetite; pt declines at times #h/o opioid abuse initiated suboxone while at , now at d ose 8 mg bid which will stay stable Will need f/u with [facility] at discharge [phone]. #Pain managed with acetaminophen, dilaudid 2-4 q4 prn, goal to taper off dilaudid before discharge #dispo home after 2 weeks, planning 04/09 to home f/u PCP, cards, suboxone clinic, wound c are #Potential or actual clinically signific ant medication issues addressed per [facility] regulations: NO ADDENDUM 15 min >50% spent on counsellin g and coordination of care Extracted from: Title: SOAP Note: Rehab Note Author: Katheryn Rosa MD Date: Health Status Allergies: Allergic Reactions (All) No Known Allergies, Allergies (1) Active Severity Reaction No Known Allergies None Documented Medications Current medications: (Selected) Inpatient Medications Ordered Colace: 100 mg = 1 cap(s), Oral, BID Dilaudid: 2 mg = 1 tab(s), Oral, q4hr, P RN: Pain Dilaudid: 4 mg = 2 tab(s), Oral, q4hr, P RN: Pain - Severe Dulcolax Laxative: 10 mg = 1 supp, Per r ectum, Daily, PRN: Constipation Marinol: 10 mg = 4 cap(s), Oral, BID MiraLax: 17 gm = 1 packet(s), Oral, Olga y, PRN: Constipation Norvasc: 10 mg = 2 tab(s), Oral, Daily Vitamin C: 500 mg = 1 tab(s), Oral, Olga y acetaminophen: 650 mg = 2 tab(s), Oral, q4hr, PRN: Pain bacitracin zinc 500 units/g topical oint ment: 1 rickie, TOP, q8hr, PRN: Other (see comment) calcium carbonate: 500 mg = 1 tab(s), Or al, TID heparin: 5,000 unit(s) = 0.5 mL, Subcuta neous, q8hr hydrOXYzine: 25 mg = 1 tab(s), Oral, HS, PRN: Anxiety miconazole topical: 1 rickie, TOP, TID multivitamin with minerals: 1 tab(s), Or al, Daily senna: 17.2 mg = 2 tab(s), Oral, HS suboxone: 8 mg = 1 EA, Sublingual, BID vancomycin: 125 mg = 1 cap(s), Oral, QID Documented Medications Documented hydroCHLOROthiazide 25 mg oral tablet: 2 5 mg = 1 tab(s), Oral, Daily, 0 Refill(s) lisinopril 10 mg oral tablet: 10 mg = 1 tab(s), Oral, Daily, 0 Refill(s) predniSONE 20 mg oral tablet: 40 mg = 2 tab(s), Oral, Daily, 0 Refill(s) triamcinolone 0.1% topical cream: 1 rickie, TOP, TID, 0 Refill(s), Medications (18) Active Scheduled: (11) amLODIPine 5 mg Tab [[facility]] 10 mg 2 tab( s), Oral, Daily ascorbic acid 500 mg Tab [[facility]] 500 mg 1 tab(s), Oral, Daily buprenorphine/naloxone film 8 mg/2 mg [[facility]] 8 mg 1 EA, Sublingual, BID calcium carbonate 500 mg Chew Tab [[facility] ] 500 mg 1 tab(s), Oral, TID docusate sodium 100 mg Cap [[facility]] 100 m g 1 cap(s), Oral, BID dronabinol 2.5 mg Cap [[facility]] 10 mg 4 ca p(s), Oral, BID heparin 10,000 units/mL Inj Belén [[facility]] 5,000 unit(s) 0.5 mL, Subcutaneous, q8hr miconazole Top 2% Pwdr [[facility]] 1 rickie, TO P, TID senna 8.6 mg Tab [[facility]] 17.2 mg 2 tab(s ), Oral, HS Therapeutic Multi Vitamin & Minerals Tab [[facility]] 1 tab(s), Oral, Daily vancomycin 125 mg Cap [[facility]] 125 mg 1 c ap(s), Oral, QID Continuous: (0) PRN: (7) acetaminophen 325 mg Tab [[facility]] 650 mg 2 tab(s), Oral, q4hr bacitracin zinc 500 units/g Top Oint UD [[facility]] 1 rickie, TOP, q8hr bisacodyl 10 mg Supp [[facility]] 10 mg 1 sup p, Per rectum, Daily HYDROmorphone 2 mg Tab [[facility]] 2 mg 1 ta b(s), Oral, q4hr HYDROmorphone 2 mg Tab [[facility]] 4 mg 2 ta b(s), Oral, q4hr hydrOXYzine hydrochloride 25 mg Tab [[facility]] 25 mg 1 tab(s), Oral, HS polyethylene glycol 3350 Oral Pwdr Recon [[facility]] 17 gm 1 packet(s), Oral, Daily . 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 #ALTHEA recheck BMP in am last Cr 0.5. #LLE foot drop Likely will need AFO, MPS. EMG scheduled as outpatient with neuro c onsult. #Cdiff continue vanco until 03/26, 7d after Abx ended meropenem 03/19 #Covid given recent Covid infection, will not t est at admission. #anemia CBC in am, last Hb 8.9, 9.2 on admission trending up #Nutrition regular, marinol to stimulate appetite. #h/o opioid abuse initiated suboxone while at , now at d ose 8 mg bid which will stay stable Will need f/u with [facility] suboxon e clinic at discharge [phone]. #Pain managed with acetaminophen, dilaudid 2-4 q4 prn, goal to taper off dilaudid before discharge #dispo home after 2 weeks f/u PCP, cards, suboxone clinic, wound c are #Potential or actual clinically signific ant medication issues addressed per CMS regulations: YES hydroxyzine started Did the facility complete prescribed/rec ommended actions in response to the identified potentially clinically significant medication issues by midnight of the next calendar day? YES Extracted from: Title: SOAP Note: Rehab Note Author: Katheryn Rosa MD Date: Health Status Allergies: Allergic Reactions (All) No Known Allergies, Allergies (1) Active Severity Reaction No Known Allergies None Documented Medications Current medications: (Selected) Inpatient Medications Ordered Colace: 100 mg = 1 cap(s), Oral, BID Dilaudid: 2 mg = 1 tab(s), Oral, q4hr, P RN: Pain Dilaudid: 4 mg = 2 tab(s), Oral, q4hr, P RN: Pain - Severe Dulcolax Laxative: 10 mg = 1 supp, Per r ectum, Daily, PRN: Constipation Marinol: 10 mg = 2 cap(s), Oral, BID MiraLax: 17 gm = 1 packet(s), Oral, Olga y, PRN: Constipation Norvasc: 10 mg = 2 tab(s), Oral, Daily Vitamin C: 500 mg = 1 tab(s), Oral, Olga y acetaminophen: 650 mg = 2 tab(s), Oral, q4hr, PRN: Pain bacitracin zinc 500 units/g topical oint ment: 1 rickie, TOP, q8hr, PRN: Other (see comment) calcium carbonate: 500 mg = 1 tab(s), Or al, TID heparin: 5,000 unit(s) = 0.5 mL, Subcuta neous, q8hr multivitamin with minerals: 1 tab(s), Or al, Daily senna: 17.2 mg = 2 tab(s), Oral, HS suboxone: 8 mg = 1 EA, Sublingual, BID vancomycin: 125 mg = 1 cap(s), Oral, QID Documented Medications Documented hydroCHLOROthiazide 25 mg oral tablet: 2 5 mg = 1 tab(s), Oral, Daily, 0 Refill(s) lisinopril 10 mg oral tablet: 10 mg = 1 tab(s), Oral, Daily, 0 Refill(s) predniSONE 20 mg oral tablet: 40 mg = 2 tab(s), Oral, Daily, 0 Refill(s) triamcinolone 0.1% topical cream: 1 rickie, TOP, TID, 0 Refill(s), Medications (16) Active Scheduled: (10) amLODIPine 5 mg Tab [[facility]] 10 mg 2 tab( s), Oral, Daily ascorbic acid 500 mg Tab [[facility]] 500 mg 1 tab(s), Oral, Daily buprenorphine/naloxone film 8 mg/2 mg [[facility]] 8 mg 1 EA, Sublingual, BID calcium carbonate 500 mg Chew Tab [[facility] ] 500 mg 1 tab(s), Oral, TID docusate sodium 100 mg Cap [[facility]] 100 m g 1 cap(s), Oral, BID dronabinol 5 mg Cap [[facility]} 10 mg 2 cap( s), Oral, BID heparin 10,000 units/mL Inj Belén [[facility]] 5,000 unit(s) 0.5 mL, Subcutaneous, q8hr senna 8.6 mg Tab [[facility]] 17.2 mg 2 tab(s ), Oral, HS Therapeutic Multi Vitamin & Minerals Tab [[facility]] 1 tab(s), Oral, Daily vancomycin 125 mg Cap [[facility]] 125 mg 1 c ap(s), Oral, QID Continuous: (0) PRN: (6) acetaminophen 325 mg Tab [[facility]] 650 mg 2 tab(s), Oral, q4hr bacitracin zinc 500 units/g Top Oint UD [[facility]] 1 rickie, TOP, q8hr bisacodyl 10 mg Supp [[facility]] 10 mg 1 sup p, Per rectum, Daily HYDROmorphone 2 mg Tab [[facility]] 2 mg 1 ta b(s), Oral, q4hr HYDROmorphone 2 mg Tab [[facility]] 4 mg 2 ta b(s), Oral, q4hr polyethylene glycol 3350 Oral Pwdr Recon [[facility]] 17 gm 1 packet(s), Oral, Daily . 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 #ALTHEA recheck BMP in am last Cr 0.5. #LLE foot drop Likely will need AFO, MPS. EMG scheduled as outpatient with neuro c onsult. #Cdiff continue vanco until 03/26, 7d after Abx ended meropenem 03/19 #Covid given recent Covid infection, will not t est at admission. #anemia CBC in am, last Hb 8.9, 9.2 on admission trending up #Nutrition regular, marinol to stimulate appetite. #h/o opioid abuse initiated suboxone while at , now at d ose 8 mg bid which will stay stable Will need f/u with [facility] suboxon e clinic at discharge [phone]. #Pain managed with acetaminophen, dilaudid 2-4 q4 prn, goal to taper off dilaudid before discharge #dispo home after 2 weeks f/u PCP, cards, suboxone clinic, wound c are #Potential or actual clinically signific ant medication issues addressed per CMS regulations: No potentially clinically significant me dication issues. Extracted from: Title: Nursing Author: Dunia Baca RN Date: 03/23 31 YO old male patient arrived today 03/02 via ambulance on a stretcher transferred from stretcher to bed using slide board (long white back board). S/P cardiac arrest (fentynal OD) covid positive onand Rhabdomyolysis, with fasciotomies perfor med on LUE, LLE buttock. Donor sight on right thigh& skin grafting performed LUE & LLE. Tox urine screen + for opiates, barbiturates, oxycodone. Upon arrival BP 132/90, 02 98% RA, oral temp 37.8 RR 16. Patient is otherwise A & O X4 able to make needs known, continent of urine & bowels last BM reported to be 03/23 has been using th e bed mercado at and urinal independently in bed. Has been getting suboxone & dilaudid 2-6 mg PRN for pain and taking it regularly. Wounds are dressed and waiting for orders for changes. Addendum by Dunia Baca RN on Left Upper and lo wer extremity wounds March 23, 2022 16:12 EDT dressed with Aquaphor, Kerli x and Nate wrap, wet to dry in open area of l eft lower extremity. Extracted from: Title: General Rehab Admission H&P * general Author: Ten Rosa MD Date: 03/23/22 History of Present Illness Mr Holland is a 31 yo man with h/o HTN ( ?), who was admitted at [facility] 01/23 to 03/23 after presenting to [facility] after being found down by his father who called EMS. The patient had reported taking fentanyl a nd pt received several doses narcan with no change. He had cardiac arrest and required CPR. He was defibrillated with ROSC. He was intubated. Covid test was positive. He was hyperkalemic 7, with Cr > 4, in rhabdomyolysis. He was started on CRRT. Drug screen positive for barbiturates, opiates, oxycodone. CT head showed globus pallidus infarcts and mild edema. Left arm and leg were cool and mottled, and he was diagnosed with compartment syndrome, underwent multiple debridements, fasciotomies left forearm and thigh, every other day from 01/23 through 03/08. Has skin grafts on 03/10 and 03/15. He required intermittent hemodialysis th roughout his stay. Other hospital complications include Cdiff starting 02/02. He had acute anemia requiring multiple transfusions secondary to acute bleeding from l eft thigh. Also treated for pseudomonas of skin grafts. He had protein calorie malnutrition, started on marinol to improve appetite. Prior to discharge he worked with psych team to initiate suboxone and plan is for close follow up at suboxone clinic as outpatient. Review of Systems Constitutional: Weight loss, No fever, N o chills. Eye: No recent visual problem. Ear/Nose/Mouth/Throat: No dysphagia. Respiratory: No shortness of breath, No cough. Cardiovascular: Peripheral edema. Gastrointestinal: +h/o malnutrition, No nausea, No vomiting. Hematology/Lymphatics: Anemia. Musculoskeletal: Joint pain, Muscle pain , Joint swelling. Integumentary: Skin lesion, fasciotomy s ites s/p skin grafts, No rash. Health Status Allergies: No allergies have been recorded., No qualifying data available Medications Current medications: (Selected) Inpatient Medications Ordered Colace: 100 mg = 1 cap(s), Oral, BID Dilaudid: 2 mg = 1 tab(s), Oral, q4hr, P RN: Pain Dilaudid: 4 mg = 2 tab(s), Oral, q4hr, P RN: Pain - Severe Dulcolax Laxative: 10 mg = 1 supp, Per r ectum, Daily, PRN: Constipation Lovenox: 40 mg = 0.4 mL, Subcutaneous, H S MiraLax: 17 gm = 1 packet(s), Oral, Olga y, PRN: Constipation Vitamin C: 500 mg = 1 tab(s), Oral, Olga y acetaminophen: 650 mg = 2 tab(s), Oral, q4hr, PRN: Pain bacitracin zinc 500 units/g topical oint ment: 1 rickie, TOP, q8hr, PRN: Other (see comment) calcium carbonate: 500 mg = 1 tab(s), Or al, TID senna: 17.2 mg = 2 tab(s), Oral, HS suboxone: 8 mg = 1 EA, Sublingual, BID Documented Medications Documented hydroCHLOROthiazide 25 mg oral tablet: 2 5 mg = 1 tab(s), Oral, Daily, 0 Refill(s) lisinopril 10 mg oral tablet: 10 mg = 1 tab(s), Oral, Daily, 0 Refill(s) predniSONE 20 mg oral tablet: 40 mg = 2 tab(s), Oral, Daily, 0 Refill(s) triamcinolone 0.1% topical cream: 1 rickie, TOP, TID, 0 Refill(s), Medications (12) Active Scheduled: (6) ascorbic acid 500 mg Tab [[facility]] 500 mg 1 tab(s), Oral, Daily buprenorphine/naloxone film 8 mg/2 mg [[facility]] 8 mg 1 EA, Sublingual, BID calcium carbonate 500 mg Chew Tab [[facility] ] 500 mg 1 tab(s), Oral, TID docusate sodium 100 mg Cap [[facility]] 100 m g 1 cap(s), Oral, BID enoxaparin 40 mg/0.4 mL SC Belén [[facility]] 4 0 mg 0.4 mL, Subcutaneous, HS senna 8.6 mg Tab [[facility]] 17.2 mg 2 tab(s ), Oral, HS Continuous: (0) PRN: (6) acetaminophen 325 mg Tab [[facility]] 650 mg 2 tab(s), Oral, q4hr bacitracin zinc 500 units/g Top Oint UD [[facility]] 1 rickie, TOP, q8hr bisacodyl 10 mg Supp [[facility]] 10 mg 1 sup p, Per rectum, Daily HYDROmorphone 2 mg Tab [[facility]] 2 mg 1 ta b(s), Oral, q4hr HYDROmorphone 2 mg Tab [[facility]] 4 mg 2 ta b(s), Oral, q4hr polyethylene glycol 3350 Oral Pwdr Recon [[facility]] 17 gm 1 packet(s), Oral, Daily . Medications (12) Active Scheduled: (6) ascorbic acid 500 mg Tab [[facility]] 500 mg 1 tab(s), Oral, Daily buprenorphine/naloxone film 8 mg/2 mg [[facility]] 8 mg 1 EA, Sublingual, BID calcium carbonate 500 mg Chew Tab [[facility] ] 500 mg 1 tab(s), Oral, TID docusate sodium 100 mg Cap [[facility]] 100 m g 1 cap(s), Oral, BID enoxaparin 40 mg/0.4 mL SC Belén [[facility]] 4 0 mg 0.4 mL, Subcutaneous, HS senna 8.6 mg Tab [[facility]] 17.2 mg 2 tab(s ), Oral, HS Continuous: (0) PRN: (6) acetaminophen 325 mg Tab [[facility]] 650 mg 2 tab(s), Oral, q4hr bacitracin zinc 500 units/g Top Oint UD [[facility]] 1 rickie, TOP, q8hr bisacodyl 10 mg Supp [[facility]] 10 mg 1 sup p, Per rectum, Daily HYDROmorphone 2 mg Tab [[facility]] 2 mg 1 ta b(s), Oral, q4hr HYDROmorphone 2 mg Tab [[facility]] 4 mg 2 ta b(s), Oral, q4hr polyethylene glycol 3350 Oral Pwdr Recon [[facility]] 17 gm 1 packet(s), Oral, Daily . Problem list: No problem items selected or recorded., No qualifying data available Physical Examination VS/Measurements No qualifying data available, Measuremen ts from flowsheet : Measurements 03/23/2022 13:09 EDT Weight Dosing 78.245 kg 03/23/2022 13:08 EDT Height/Length Dosing 188 cm General: No acute distress, awake but le thargic, falling asleep during meeting. Eye: Extraocular movements are intact, N ormal conjunctiva. Respiratory: Lungs are clear to ausculta tion, Respirations are non-labored. Cardiovascular: Normal rate, tachy 100. Integumentary: Intact, No rash, LUE and LLE civered with NATE; dressings last changed today. Mental status/ Cognition Alert. Oriented x 3. Speech and language intact. Cognition intact. able to repeat 3 words sock blue bed on first attempt year:2021, correct month: Mar, correct day of week: Tue, correct recall: 10/01 no cues. Sensorimotor/ Reflexes LUE good strength, LLE numbness below kn ee, dorsiflexion 2/5, hip flexion 3/5. Psychiatric: Cooperative, Appropriate mo od & affect. Impression and Plan Diagnosis deconditoning. Impairments: Monoparesis, left foot drop . General: Decreased strength, Decreased endurance, Decreased balance. Disabilities: Decreased: Mobility, Abili ty to transfer self, Ability to ambulate, Ability to dress self, Ability to feed self, Ability to bathe self, Ability to toilet self, Ability to self-care, Safety. Safety/ Precautions: Weight bearing: As tolerated. Nursing goals: Nutrition/diet: Adequate caloric intake , Tolerate adequate PO nutrition. Medication monitor for treatment: Effec ts, Adverse reactions. Bladder: Continent, Regulated with prog jose juan. Bowel: Continent, Regulated with progra m. Skin: Promote wound healing, Prevent br eakdown, Decrease limb edema. Pain/Sleep: Regulate sleep cycle, Decre ase pain level. Occupational therapy goals: Modified ind ependent, Setup/ supervision, Equipment/DME assessment. Physical therapy goals: Modified andrew ching, Setup/ supervision, Home assessment. Psychology Goals: Adjustment to disabili ty, Increased coping skills. Therapeutic Recreation Goals: Leisure sk ills assessment, Improve social interaction with peers. Patient/Family Goals: Return to home ind ependent, Return to home with assistance. Potential for improvement to meet goals: Good. Patient/Family Educational Needs: ADL as sistance, Bowel/bladder program, Disease process education, Medication education, Pain management strategies, Safety awareness, Transfers. Estimated length of stay: 2 weeks. Disposition: Home. Code Status: Full code. Medical Plan DVT prophylaxis: heparin 5000 tid. Skin: wound/incision management, wound c /s for fasciotomy/skin graft sites. Cardiovascular: HTN - on norvasc 10, fol low BPs ALTHEA - recheck BMP in am last Cr 0.5. Neuro: LLE foot drop - EMG scheduled as outpatient with neuro consult. Likely will need AFO, MPS. Infectious Disease: Cdiff - continue van co until 03/26, 7d after Abx ended meropenem 03/19 given recent Covid infection, will not t est at admission . Hematology: anemia - CBC in am, last Hb 8.9. Nutrition: regular, marinol to stimulate appetite. Psych/ Sleep: initated suboxone while at , now at dose 8 mg bid which will stay stable. Will need f/u with [facility] suboxone clinic at discharge [phone]. Pain: managed with (acetaminophen, narco tics, on dilaudid 2-4 q4 prn, goal to taper off as able). #[facility] medication review: Did a complete drug regimen review ident joey potential clinically significant medication issues? - YES ? Issues found during review: norvasc marinol suboxone and vanco not listed in d/c summary; home meds listed are not accurate Did the facility complete prescribed/rec ommended actions in response to the identified potential clinically significant medication issues by midnight of the next calendar day? - YES . Rehab Impairment Categories Impairment category/ codes table I & II 16 Debility. Post Admission Physician Evaluation: Documentation Reviewed: I have reviewed the Preadmission Screen. Functional status documented at preadmi ssion: I agree with the patient's current functional status as documented in the preadmission screening. Risk for complications: I agree with th e risk for clinical complications documented in the preadmission screening. Medical conditions: The patient's medic al conditions can be managed in the rehab hospital. Patient participation in therapy: The p atient can participate in, and will benefit from an intense therapy program at least 3 hours per day / 5 days per week. Therapies/services include:, lead radiation therapist apy, Occupational therapy, Rehabilitatio n Nursing, Case Management, Therapeutic Recreation. Functional Status 04/08/22 History of Fall in Last 3 Months Cummings Yes Mobility Quintin Slightly limited 03/23/22 Level of Assistance - Self Care-Mobility New decline f rom baseline Bathing ADL Index Requires assistance (1) Dressing ADL Index Requires assistance (1) Toileting ADL Index Requires assistance (1) Transferring Bed or Chair ADL Index Requires assistanc e (1) Continence ADL Index Independent (2) Recent Travel History No recent travel Family Member Travel History No recent travel COVID-19 Screening None Medications acetaminophen 325 mg oral tablet 650 mg = 2 tab(s), Oral, q4hr, PRN PRN Pain, 0 Refill(s) Start Date: 04/08/22 Status: Orderedapixaban 5 mg oral tablet 5 mg = 1 tab(s), Oral, BID, # 60 tab(s), 0 Refill(s), Pharmacy: [id number], 1 tab(s) Oral BID, 188, cm, 03/23/22 13:10:00 EDT, Height/Length Dosing, 80.2, kg, 04/06/22 12:29:00 EDT, Weight Dosing Start Date: 04/09/22 Status: Orderedbuprenorphine-naloxone 8 mg-2 mg sublingual film 8-2 mg, Sublingual, BID, # 6 EA, 0 Refill(s) Start Date: 04/08/22 Status: OrderedColace 100 mg oral capsule 100 mg = 1 cap(s), Oral, BID, PRN PRN Constipation, 0 Refill(s) Start Date: 04/08/22 Status: Orderedmultivitamin with minerals 1 tab(s), Oral, Daily, 0 Refill(s) Start Date: 04/08/22 Status: Orderednicotine 14 mg/24 hr transdermal film, extended release Transdermal, Daily, 0 Refill(s) Start Date: 04/08/22 Status: OrderedNorvasc 10 mg oral tablet 10 mg = 1 tab(s), Oral, Daily, # 30 tab(s), 0 Refill(s), Pharmacy: [id number], 1 tab(s) Oral Daily, 188, cm, 03/23/22 13:10:00 EDT, Height/Length Dosing, 80.2, kg, 04/06/22 12:29:00 EDT, Weight Dosing Start Date: 04/09/22 Status: Orderedsenna 8.6 mg oral tablet 17.2 mg = 2 tab(s), Oral, HS, PRN PRN Constipation, 0 Refill(s) Start Date: 04/08/22 Status: Ordered Mental Status 04/08/22 Sensory Perception Quintin Slightly limited Level of Consciousness Alert Results Laboratory List Name Date .Hemogram DH (CBC DH) 03/29/22 Basic Metabolic Panel DH (BMP DH) 03/29/22 .Hemogram DH (CBC DH) 03/27/22 Basic Metabolic Panel DH (BMP DH) 03/27/22 CK DH 03/27/22 Magnesium DH 03/27/22 D-Dimer 03/26/22 Magnesium DH 03/26/22 Troponin DH 03/26/22 .Hemogram DH (CBC DH) 03/25/22 Albumin Level DH 03/25/22 Basic Metabolic Panel DH (BMP DH) 03/25/22 Magnesium DH 03/25/22 Troponin DH 03/25/22 Most recent to oldest 1 2 3 [Reference Range]: Albumin Lvl DH [3.2-5.2 3.9 g/dL g/dL] (03/25/22 6:00 PM) Anion Gap DH [5-15 mmol/L] 14 mmol/L 14 mmol/L 16 mm ol/L (03/29/22 8:55 AM) (03/27/22 6:55 AM) *HI* (03/25/22 6:00 PM ) Chloride Lvl DH [98-107 95 mmol/L 100 mmol/L 97 mmol/ L mmol/L] *LOW* (03/27/22 6:55 AM) *LOW* (03/29/22 8:55 AM) (03/25/22 6:00 PM) CO2 DH [22-31 mmol/L] 26 mmol/L 23 mmol/L 24 mmol/L (03/29/22 8:55 AM) (03/27/22 6:55 AM) (03/25/22 6:0 0 PM) Est GFR DH [>=60 136 mL/min/1.73 m2 1 146 mL/min/1.73 m2 2 134 m L/min/1.73 m2 3 mL/min/1.73 m2] (03/29/22 8:55 AM) (03/27/22 6:55 AM) (03/25/22 6:0 0 PM) Glucose Lvl DH [65-99 180 mg/dL 106 mg/dL 153 mg/dL mg/dL] *HI* *HI* *HI* (03/29/22 8:55 AM) (03/27/22 6:55 AM) (03/25/22 6:0 0 PM) Potassium Lvl DH [3.5-5.0 4.0 mmol/L 4.2 mmol/L 3.7 mm ol/L mmol/L] (03/29/22 8:55 AM) (03/27/22 6:55 AM) (03/25/22 6:0 0 PM) Sodium Lvl DH [135-145 135 mmol/L 137 mmol/L 137 mmol/ L mmol/L] (03/29/22 8:55 AM) (03/27/22 6:55 AM) (03/25/22 6:0 0 PM) BUN DH [10-20 mg/dL] 12 mg/dL 9 mg/dL 12 mg/dL (03/29/22 8:55 AM) *LOW* (03/25/22 6:00 PM) (03/27/22 6:55 AM) Calcium Lvl DH [8.5-10.5 10.0 mg/dL 9.6 mg/dL 10.0 mg /dL mg/dL] (03/29/22 8:55 AM) (03/27/22 6:55 AM) (03/25/22 6:0 0 PM) Magnesium Lvl DH [0.69-1.07 0.77 mmol/L 0.59 mmol/L 0.59 mmol/L mmol/L] (03/27/22 6:55 AM) *LOW* *LOW* (03/26/22 5:00 AM) (03/25/22 6:00 PM) Total CK DH [0-200 unit/L] 24 unit/L (03/27/22 6:55 AM) Troponin-T DH [<=0.01 0.05 ng/mL 0.07 ng/mL ng/mL] *HI* *HI* (03/26/22 5:00 AM) (03/25/22 6:00 PM) Creatinine [0.80-1.50 .56 mg/dL .44 mg/dL .59 mg/dL mg/dL] *LOW* *LOW* *LOW* (03/29/22 8:55 AM) (03/27/22 6:55 AM) (03/25/22 6:0 0 PM) D-Dimer [0-500 ng/mL (FEU)] 1233 ng/mL (FEU) *HI* (03/26/22 3:15 PM) Hct DH [40.5-48.5 %] 26.2 % 26.2 % 26.8 % *LOW* *LOW* *LOW* (03/29/22 8:55 AM) (03/27/22 6:55 AM) (03/25/22 6:0 0 PM) Hgb DH [13.7-16.5 g/dL] 8.8 g/dL 8.9 g/dL 9.4 g/dL *LOW* *LOW* *LOW* (03/29/22 8:55 AM) (03/27/22 6:55 AM) (03/25/22 6:0 0 PM) MCHC DH [32.0-35.7 g/dL] 33.6 g/dL 34.0 g/dL 35.1 g/ dL (03/29/22 8:55 AM) (03/27/22 6:55 AM) (03/25/22 6:0 0 PM) MCH DH [27.5-32.1 pg] 29.9 pg 29.9 pg 30.6 pg (03/29/22 8:55 AM) (03/27/22 6:55 AM) (03/25/22 6:0 0 PM) MCV DH [82.9-93.1 fL] 89.1 fL 87.9 fL 87.3 fL (03/29/22 8:55 AM) (03/27/22 6:55 AM) (03/25/22 6:0 0 PM) MPV DH [7.6-12.9 fL] 8.7 fL 8.0 fL 9.2 fL (03/29/22 8:55 AM) (03/27/22 6:55 AM) (03/25/22 6:0 0 PM) Platelet DH [145-357 340 x10(3)/mcL 258 x10(3)/mcL 308 x10(3)/ mcL x10(3)/mcL] (03/29/22 8:55 AM) (03/27/22 6:55 AM) (03/25/22 6:0 0 PM) RBC DH [4.58-5.54 2.94 x10(6)/mcL 2.98 x10(6)/mcL 3.07 x10(6)/mc L x10(6)/mcL] *LOW* *LOW* *LOW* (03/29/22 8:55 AM) (03/27/22 6:55 AM) (03/25/22 6:0 0 PM) RDWCV DH [11.4-13.8 %] 14.2 % 14.7 % 14.7 % *HI* *HI* *HI* (03/29/22 8:55 AM) (03/27/22 6:55 AM) (03/25/22 6:0 0 PM) RDWSD DH [36.0-45.0 fL] 46.3 fL 47.5 fL 47.5 fL *HI* *HI* *HI* (03/29/22 8:55 AM) (03/27/22 6:55 AM) (03/25/22 6:0 0 PM) WBC DH [4.0-9.5 x10(3)/mcL] 9.4 x10(3)/mcL 9.2 x10(3)/mcL 9.0 x10(3)/mcL (03/29/22 8:55 AM) (03/27/22 6:55 AM) (03/25/22 6:0 0 PM) 1Result Comment: This patient's estimated GFR was calculated using the 2020 CKD- EPI equation. The estimated GFR can vary from the measured GFR by up to 30% in the absence of rapidly changing kidney function. Assessment of the estimated GFR is not appropriate when creatinine concentrations are rapidly changing. For clinical situations in which a more precise estimate of GFR is necessary, consider alternative methods of GFR estimation such as a 24-hour urine creatinine clearance. Assignment of CKD stage 1-5 for patients with an eGFR near the transition point between stages may be based on clinical assessment of muscle mass and symptoms in addition to eGFR.2Result Comment: This patient's estimated GFR was calculated using the 2020 CKD-EPI equation. The estimated GFR can vary from the measured GFR by up to 30% in the absence of rapidly changing kidney function. Assessment of the estimated GFR is not appropriate when creatinine concentrations are rapidly changing. For clinical situations in which a more precise estimate of GFR is necessary, consider alternative methods of GFR estimation such as a 24- hour urine creatinine clearance. Assignment of CKD stage 1-5 for patients with an eGFR near the transition point between stages may be based on clinical assessment of muscle mass and symptoms in addition to eGFR.3Result Comment: This patient's estimated GFR was calculated using the 2020 CKD-EPI equation. The estimated GFR can vary from the measured GFR by up to 30% in the absence of rapidly changing kidney function. Assessment of the estimated GFR is not appropriate when creatinine concentrations are rapidly changing. For clinical situations in which a more precise estimate of GFR is necessary, consider alternative methods of GFR estimation such as a 24- hour urine creatinine clearance. Assignment of CKD stage 1-5 for patients with an eGFR near the transition point between stages may be based on clinical assessment of muscle mass and symptoms in addition to eGFR.Radiology Reports Exam Date Time Procedure Performing Provider Status 03/29/22 11:33 AM US LE Venous Duplex Left JUSTYNA JUAREZ; Eduar ed Notes:(US LE Venous Duplex Left) Reason For Exam: left leg pain and edmea r/o DVTUS LE VENOUS DUPLEX LEFT Peripheral Venous Duplex (Signed Final 03/29/2022 01:22 pm) PATIENT INFO: ID #: [id number] : [birth year] (31 yrs)(M) Name: ALIX Hua AMALIA Visit Date:03/29/2022 11:34 am PERFORMED BY: Performed By: Justyna Juarez RDMS Attending: Lisandro Pruett MD Referred By: Katheryn Rosa Location: [facility] SERVICE(S) PROVIDED: [id number] - DVT Lower Extremity Limited Left - [id number] INDICATIONS: left leg pain and edmea r/o DVT TECHNIQUE/SCAN QUALITY: Technique: Mix scale, color and spectral Doppler of the lower extremity venous system. LOWER EXTREMITY PERIPHERAL VENOUS: RIGHT Vein Thrombu Compress Spontaneous Augment s Phasic CFV: No Yes Yes Yes LEFT Vein Thrombu Compress Spontaneous Augment s Phasic CFV: No Yes Yes Yes FV Junc: No Yes Yes Yes PFV: No Yes Yes Yes FV Prox: No Yes Yes Yes FV Mid: No Yes Yes Yes FV Dist: Yes No Pop: Yes No PTV: Yes Peron: Yes GSV: No Yes Yes IMPRESSION: Impression: Thrombosis with no significant flow in the distal right femoral and popliteal veins. Electronically signed by: Lisandro Pruett MD, [facility] ([phone]), at 03/29/2022 11:41 AM Thank you for letting us participate in the care of this patient. If you are a health care provider and have any questions regarding this report, please contact the number above. For patients who have questions, please contact the health health care facility administrator that requested your imaging first. Lisandro Pruett, Staff Physician Electronically Signed Final Report 03/29/2022 01:22 pm Final Dictated: 03/29/2022 11:34 am Generated Domain User for [id number] Signed (Electronic Signature): 03/29/2022 11:34 am Signed by: Generated Domain User for [id number] Technologist: JUSTYNA JUAREZ Exam Date Time Procedure Performing Provider Status 03/26/22 4:[address] Angio Chest w/ Contrast Georgia Daniels; Kellie ified Notes:(CT Angio Chest w/ Contrast) Reason For Exam: elevated ddimer, persistent tachycardia, lower leg pain and swellingCT ANGIO CHEST W/ CONTRAST EXAMINATION: CT ANGIO CHEST W/ CONTRAST CLINICAL HISTORY: elevated ddimer, persistent tachycardia, lower leg pain and swelling TECHNIQUE: Helical CT angiogram of the chest was performed following the intravenous administration of 75ml of Omnipaque 350. Maximum intensity projection (MIP) were reformatted. 3D images were generated on an independent workstation. COMPARISON: The chest CT portion of a study from 01/30/2022 FINDINGS: VASCULAR Pulmonary arteries: No pulmonary emboli. Heart: Normal size. Aorta: No stenosis or aneurysm. Great vessels: No stenosis or aneurysm. Celiac/SMA: No stenosis or aneurysm. NON-VASCULAR Lungs and large airways: No pulmonary nodules or areas of airspace consolidation Pleura: No pleural effusions Mediastinum and kolton: No adenopathy. Central venous catheter with tip in the superior vena cava. Limited views of the upper abdomen: No significant findings. Osseous structures: Within normal limits. IMPRESSION: Normal study. No evidence of pulmonary embolism. Thank you for letting us participate in the care of this patient. If you are a health care provider and have any questions regarding this report, please contact the number below. For patients who have questions please contact the health health care facility administrator that requested your imaging first. Final Dictated: 03/26/2022 4:31 pm Saul Ram M.D. Signed (Electronic Signature): 03/26/2022 4:26 pm Signed by: Saul Ram M.D. Transcribed by: U Vital Signs Most recent to oldest 1 2 3 [Reference Range]: Temperature Oral [35.8-37.3 36.6 DegC 37.1 DegC 36.6 DegC DegC] (04/09/22 9:46 AM) (04/08/22 9:54 PM) (04/08/22 8:47 A M) Temperature Oral (DegF) 97.88 DegF 97.88 DegF 98.24 De gF (04/09/22 9:46 AM) (04/08/22 8:47 AM) (04/07/22 7:19 A M) Temperature Temporal Artery 36.6 DegC 36.8 DegC [36.3-37.8 DegC] (04/05/22 4:00 AM) (03/24/22 7:00 AM) Temperature Temporal Artery 97.88 DegF (DegF) (04/05/22 4:00 AM) Apical Heart Rate [60-100 112 bpm 121 bpm 120 bp m bpm] *HI* *HI* *HI* (03/26/22 8:00 AM) (03/23/22 6:27 PM) (03/23/22 4:4 6 PM) Peripheral Pulse Rate [60-100 111 bpm 107 bpm 12 1 bpm bpm] *HI* *HI* *HI* (04/09/22 9:46 AM) (04/08/22 9:54 PM) (04/08/22 8:47 A M) Heart Rate Monitored [60-100 16 bpm 16 bpm bpm] *LOW* *LOW* (03/27/22 1:00 AM) (03/26/22 7:00 PM) Respiratory Rate [14-20 17 br/min 18 br/min 16 br/mi n br/min] (04/09/22 9:46 AM) (04/08/22 9:54 PM) (04/07/22 7:32 P M) Blood Pressure [90-140/60-90 121/73 mmHg 128/77 mmHg 121 /73 mmHg mmHg] (04/09/22 9:46 AM) (04/08/22 9:54 PM) (04/08/22 8:47 A M) Mean Arterial Pressure, Cuff 91 mmHg 98 mmHg 90 mmHg [65-100 mmHg] (04/06/22 7:45 AM) (04/05/22 8:00 AM) (04/04/22 8:00 P M) BP Site Left arm Left arm Right arm (04/09/22 9:46 AM) (04/08/22 8:47 AM) (04/07/22 7:32 P M) SpO2 [92-100 %] 98 % 97 % 97 % (04/09/22 9:46 AM) (04/08/22 9:54 PM) (04/08/22 8:47 A M) SpO2 Location Right hand Left hand Left hand (04/04/22 8:00 PM) (04/03/22 7:50 AM) (04/02/22 7:00 P M) Peripheral Pulse Rate with 144 bpm Activity (03/26/22 1:15 PM) SpO2 Following Exercise 99 % [94-100 %] (03/26/22 1:15 PM) Pulse Rate after activity 134 bpm (03/31/22 4:10 PM) O2 Saturation after activity 100 % (03/31/22 4:10 PM) BP Method Automatic Automatic Automatic (04/07/22 7:32 PM) (04/06/22 9:12 PM) (04/06/22 7:45 A M) Height 188 cm (03/24/22 12:08 PM) Height/Length Dosing 188 cm (03/23/22 1:08 PM) Weight 80.2 kg 80 kg 79.2 kg (04/06/22 12:29 PM) (03/30/22 5:13 PM) (03/25/22 10: 00 AM) Weight Estimated 80.2 kg 80 kg 78.3 kg (04/06/22 12:29 PM) (03/30/22 5:13 PM) (03/24/22 12: 04 PM) Weight Dosing 80.2 kg 80 kg 78.3 kg (04/06/22 12:29 PM) (03/30/22 5:13 PM) (03/24/22 12: 04 PM) Body Mass Index Measured 22.15 kg/m2 (03/24/22 12:08 PM) Social History Social History Type Response Tobacco Current everyday tobacco use r Tobacco Use:. 1.5 per day. 14 year(s). Started age [age] Ye ars. Sex Hospital Discharge Instructions Patient Civkzofeq59/09/2022 10:00:35Weakness, Slty-cp-LspmVzsoinpm Weakness is a lack of strength. You may feel weak all over your body (generalized), or you may feel weak in one part of your body (focal). There are many potential causes of weakness. Sometimes, the cause of your weakness may not be known. Some causes of weakness can be serious, so it is important to see your doctor. Follow these instructions at home: Activity ??? Rest as needed. ??? Try to get enough sleep. Most adults need 7???8 hours of sleep each night. Talk to your doctor about how much sleep you need each night. ??? Do exercises, such as arm curls and leg raises, for 30 minutes at least 2 days a week or as toldby your doctor. ??? Think about working with a physical therapist or link trainer maintenance worker to help you get stronger. General instructions ??? Take vfcy-igr-yzmunlm and prescription medicines only as told by your doctor. ??? Eat a healthy, well-balanced diet. This includes: ??? Proteins to build muscles, such as lean meats and fish. ??? Fresh fruits and vegetables. ??? Carbohydrates to boost energy, such as whole grains. ??? Drink enough fluid to keep your pee (urine) pale yellow. ??? Keep all follow-up visits as told by your doctor. This is important. Contact a doctor if: ??? Your weakness does not get better or it gets worse. ??? Your weakness affects your ability to: ??? Think clearly. ??? Do your normal daily activities. Get help right away if you: ??? Have sudden weakness on one side of your face or body. ??? Have chest pain. ??? Have trouble breathing or shortness of breath. ??? Have problems with your vision. ??? Have trouble talking or swallowing. ??? Have trouble standing or walking. ??? Are light-headed. ??? Pass out (lose consciousness). Summary ??? Weakness is a lack of strength. You may feel weak all over your body or just in one part of yourbody. ??? There are many potential causes of weakness. Sometimes, the cause of your weakness may not be known. ??? Rest as needed, and try to get enough sleep. Most adults need 7???8 hours of sleep each night. ??? Eat a healthy, well-balanced diet. This information is not intended to replace advice given to you by your health care provider. Make sure you discuss any questions you have with your health care provider. Document Revised: 02/21/2019 Document Reviewed: 02/21/2019 [employer] Patient Education ?? 2021 [email or web address]. 04/09/2022 10:00:07FatigueFatigue If you have fatigue, you feel tired all the time and have a lack of energy or a lack of motivation. Fatigue may make it difficult to start or complete tasks because of exhaustion. In general, occasional or mild fatigue is often a normal response to activity or life. However, long-lasting (chronic) or extreme fatigue may be a symptom of a medical condition. Follow these instructions at home: General instructions ??? Watch your fatigue for any changes. ??? Go to bed and get up at the same time every day. ??? Avoid fatigue by pacing yourself during the day and getting enough sleep at night. ??? Maintain a healthy weight. Medicines ??? Take xcxn-zxi-baeoxnc and prescription medicines only as told by your health care provider. ??? Take a multivitamin, if told by your health care provider.? Do not use herbal or dietary supplements unless they are approved by your health care provider. Activity ??? Exercise regularly, as told by your health care provider. ??? Use or practice techniques to help you relax, such as yoga, danette chi, meditation, or massage therapy. Eating and drinking ??? Avoid heavy meals in the evening. ??? Eat a well-balanced diet, which includes lean proteins, whole grains, plenty of fruits and vegetables, and low-fat dairy products. ??? Avoid consuming too much caffeine. ??? Avoid the use of alcohol. ??? Drink enough fluid to keep your urine pale yellow. Lifestyle ??? Change situations that cause you stress. Try to keep your work and personal schedule in balance. ??? Do not use any products that contain nicotine or tobacco, such as cigarettes and e-cigarettes. If you need help quitting, ask your health care provider. ??? Do not use drugs. Contact a health care provider if: ??? Your fatigue does not get better. ??? You have a fever. ??? You suddenly lose or gain weight. ??? You have headaches. ??? You have trouble falling asleep or sleeping through the night. ??? You feel angry, guilty, anxious, or sad. ??? You are unable to have a bowel movement (constipation). ??? Your skin is dry. ??? You have swelling in your legs or another part of your body. Get help right away if: ??? You feel confused. ??? Your vision is blurry. ??? You feel faint or you pass out. ??? You have a severe headache. ??? You have severe pain in your abdomen, your back, or the area between your waist and hips (pelvis). ??? You have chest pain, shortness of breath, or an irregular or fast heartbeat. ??? You are unable to urinate, or you urinate less than normal. ??? You have abnormal bleeding, such as bleeding from the rectum, vagina, nose, lungs, or nipples. ??? You vomit blood. ??? You have thoughts about hurting yourself or others. If you ever feel like you may hurt yourself or others, or have thoughts about taking your own life, get help right away. You can go to your nearest emergency department or call: ??? Your local emergency services (911 in the [place] ??? A suicide crisis helpline, such as the National Suicide Prevention Lifeline at . This is open 24 hours a day. Summary ??? If you have fatigue, you feel tired all the time and have a lack of energy or a lack of motivation. ??? Fatigue may make it difficult to start or complete tasks because of exhaustion. ??? Long-lasting (chronic) or extreme fatigue may be a symptom of a medical condition. ??? Exercise regularly, as told by your health care provider. ??? Change situations that cause you stress. Try to keep your work and personal schedule in balance. This information is not intended to replace advice given to you by your health care provider. Make sure you discuss any questions you have with your health care provider. Document Revised: 05/28/2021 Document Reviewed: 05/28/2021 [employer] Patient Education ?? 2021 [email or web address]. 04/09/2022 10:00:01Fasciotomy for Acute Compartment SyndromeFasciotomy for Acute Compartment Syndrome Fasciotomy for acute compartment syndrome is a surgery that is done to quickly relieve pressure around a muscle and restore blood flow to the area. Muscles are surrounded by a thin but tough layer of tissue (fascia). If muscles begin to swell inside the fascia, blood flow to the muscles can be cut off, and the muscles may if the pressure is not relieved. This condition is called acute compartmentsyndrome. Trauma, such as a crushing injury or a broken bone, is the most common cause. The most common areas to have compartment syndrome are the leg below the knee and the arm below the elbow. In fasciotomy surgery, incisions are made in the fascia to relieve pressure and allow the muscle to expand. This is an urgent procedure that is done as soon as possible to prevent muscle . In somecases, fasciotomy may be done along with the repair of bone, arteries, and veins in the affected area. Tell a health care provider about: ??? Any allergies you have. ??? All medicines you are taking, including vitamins, herbs, eye drops, creams, and jzog-mgc-utyrpdxxcbuzseme. ??? Any problems you or family members have had with anesthetic medicines. ??? Any blood disorders you have. ??? Any surgeries you have had. ??? Any medical conditions you have. ??? Whether you are or may be . ??? Any tobacco use. What are the risks? Generally, this is a safe procedure. However, problems may occur, including: ??? Bleeding. ??? Scarring. ??? Muscle weakness or loss of the muscle. ??? Pain. ??? Nerve damage that causes a loss of feeling. ??? Infection. ??? The need for repeated procedures. What happens before the procedure? Acute compartment syndrome is a medical emergency that requires surgery to relieve pressure. This surgery needs to be done right away. First-aid treatment Until surgery can be performed, temporary first-aid treatment is done, which may include: ??? Treating any injury. ??? Loosening or removing any cast, bandage, or external wrap that may be causing pain. ??? Raising, or elevating, the painful arm or leg to the same level as the heart. ??? Giving oxygen. ??? Giving fluids through an IV. ??? Giving pain medicine. General instructions ??? Follow instructions from your health care provider about eating and drinking restrictions. When the diagnosis of acute compartment syndrome is made, you may be asked not to eat or drink anything until after the surgery. ??? Ask your health care provider: ??? How your surgery site will be marked. ??? What steps will be taken to help prevent infection. These may include: ??? Removing hair at the surgery site. ??? Washing skin with a germ-killing soap. ??? Receiving antibiotic medicine. What happens during the procedure? Your exact procedure will depend on where your acute compartment syndrome is located. In general, the following occurs during this procedure: ??? An IV will be inserted into one of your veins. ??? You will be given one or more of the following: ??? A medicine to help you relax (sedative). ??? A medicine to make you fall asleep (general anesthetic). ??? A medicine that is injected into an area of your body to numb the area (local anesthetic). ??? Your surgeon will make one or more incisions in the area where the acute compartment syndrome islocated. ??? Your incisions may not be closed during surgery. They may be covered with: ??? Bandages (dressings) until the pressure in the area decreases. ??? A dressing that uses a sponge or foamlike material to suck fluid out of your incisions (negativepressure wound therapy, or NPWT). The procedure may vary among health care providers and hospitals. What happens after the procedure? Your blood pressure, heart rate, breathing rate, and blood oxygen level will be monitored until you leave the hospital or clinic. ??? Your kidney function and urine will be checked for signs of ongoing breakdown of muscle tissue. ??? You will be given medicine for pain. ??? You may continue to get fluids and antibiotics through the IV. ??? Your incision or incisions will be checked often. ??? You will be checked again in the operating room in the next few days. At that time, further treatments or wound closure will be done. This may include stitches (sutures) or skin graft. A skin graftis a procedure to cover an area of damaged or missing skin with a piece of healthy skin. Summary ??? Acute compartment syndrome occurs when muscles begin to swell inside the tough layer of tissue (fascia) that surrounds them. Blood flow to the muscles can be cut off, and the muscles may if thepressure is not relieved. ??? Fasciotomy is a surgery to quickly relieve pressure around a muscle and restore blood flow to the area. ??? In fasciotomy surgery, an incision is made in the fascia to relieve pressure and allow the muscle to expand. ??? This is an urgent procedure that needs to be done right away. This information is not intended to replace advice given to you by your health care provider. Make sure you discuss any questions you have with your health care provider. Document Revised: 01/20/2021 Document Reviewed: 01/20/2021 [employer] Patient Education ?? 2021 [employer] 04/09/2022 09:58:39Acute Kidney Injury, AdultAcute Kidney Injury, Adult Acute kidney injury is a sudden worsening of kidney function. The kidneys are organs that have several jobs. They filter the blood to remove waste products and extra fluid. They also maintain a healthybalance of minerals and hormones in the body, which helps control blood pressure and keep bones strong. With this condition, your kidneys do not do their jobs as well as they should. This condition ranges from mild to severe. Over time, it may develop into long- lasting (chronic) kidney disease. Early detection and treatment may prevent acute kidney injury from developing into a chronic condition. What are the causes? Common causes of this condition include: ??? A problem with blood flow to the kidneys. This may be caused by: ??? Low blood pressure (hypotension) or shock. ??? Blood loss. ??? Heart and blood vessel (cardiovascular) disease. ??? Severe andrew. ??? Liver disease. ??? Direct damage to the kidneys. This may be caused by: ??? Certain medicines. ??? A kidney infection. ??? Poisoning. ??? Being around or in contact with toxic substances. ??? A surgical wound. ??? A hard, direct hit to the kidney area. ??? A sudden blockage of urine flow. This may be caused by: ??? Cancer. ??? Kidney stones. ??? An enlarged prostate in males. What increases the risk? You are more likely to develop this condition if you: ??? Are older than age 65. ??? Are female. ??? Are hospitalized, especially if you are in critical condition. ??? Have certain conditions, such as: ??? Chronic kidney disease. ??? Diabetes. ??? Coronary artery disease and heart failure. ??? Pulmonary disease. ??? Chronic liver disease. What are the signs or symptoms? Symptoms of this condition may not be obvious until the condition becomes severe. Symptoms of this condition can include: ??? Tiredness (lethargy) or difficulty staying awake. ??? Nausea or vomiting. ??? Swelling (edema) of the face, legs, ankles, or feet. ??? Problems with urination, such as: ??? Pain in the abdomen, or pain along the side of your stomach (flank). ??? Producing little or no urine. ??? Passing urine with a weak flow. ??? Muscle twitches and cramps, especially in the legs. ??? Confusion or trouble concentrating. ??? Loss of appetite. ??? Fever. How is this diagnosed? Your health care provider can diagnose this condition based on your symptoms, medical history, and aphysical exam. You may also have other tests, such as: ??? Blood tests. ??? Urine tests. ??? Imaging tests. ??? A test in which a sample of tissue is removed from the kidneys to be examined under a microscope(kidney biopsy). How is this treated? Treatment for this condition depends on the cause and how severe the condition is. In mild cases, treatment may not be needed. The kidneys may heal on their own. In more severe cases, treatment will involve: ??? Treating the cause of the kidney injury. This may involve changing any medicines you are taking or adjusting your dosage. ??? Fluids. You may need specialized IV fluids to balance your body's needs. ??? Having a catheter placed to drain urine and prevent blockages. ??? Preventing problems from occurring. This may mean avoiding certain medicines or procedures that can cause further injury to the kidneys. In some cases, treatment may also require: ??? A procedure to remove toxic wastes from the body (dialysis or continuous renal replacement therapy, CRRT). ??? Surgery. This may be done to repair a torn kidney or to remove the blockage from the urinary system. Follow these instructions at home: Medicines ??? Take kffa-mrd-nctdtek and prescription medicines only as told by your health care provider. ??? Do not take any new medicines without your health care provider's approval. Many medicines can worsen your kidney damage. ??? Do not take any vitamin and mineral supplements without your health care provider's approval. Many nutritional supplements can worsen your kidney damage. Lifestyle ??? If your health care provider prescribed changes to your diet, follow them. You may need to decrease the amount of protein you eat. ??? Achieve and maintain a healthy weight. If you need help with this, ask your health care provider. ??? Start or continue an exercise plan. Try to exercise at least 30 minutes a day, 5 days a week. ??? Do not use any products that contain nicotine or tobacco, such as cigarettes, e-cigarettes, and chewing tobacco. If you need help quitting, ask your health care provider. General instructions ??? Keep track of your blood pressure. Report changes in your blood pressure as told by your health care provider. ??? Stay up to date with your vaccines. Ask your health care provider which vaccines you need. ??? Keep all follow-up visits as told by your health care provider. This is important. Where to find more information ??? [place] [employer]: www.aakp.org ??? National Kidney Foundation: www.kidney.org ??? [employer]: www.akfinc.org ??? [employer] [facility]: ??? www.lifeoptions.org ??? www.kidneyschool.org Contact a health care provider if: ??? Your symptoms get worse. ??? You develop new symptoms. Get help right away if: ??? You develop symptoms of worsening kidney disease, which include: ??? Headaches. ??? Abnormally dark or light skin. ??? Easy bruising. ??? Frequent hiccups. ??? Chest pain. ??? Shortness of breath. ??? End of menstruation in women. ??? Seizures. ??? Confusion or altered mental status. ??? Abdominal or back pain. ??? Itchiness. ??? You have a fever. ??? Your body is producing less urine. ??? You have pain or bleeding when you urinate. Summary ??? Acute kidney injury is a sudden worsening of kidney function. ??? Acute kidney injury can be caused by problems with blood flow to the kidneys, direct damage to the kidneys, and sudden blockage of urine flow. ??? Symptoms of this condition may not be obvious until it becomes severe. Symptoms may include edema, lethargy, confusion, nausea or vomiting, and problems passing urine. ??? This condition can be diagnosed with blood tests, urine tests, and imaging tests. Sometimes a kidney biopsy is done to diagnose this condition. ??? Treatment for this condition often involves treating the underlying cause. It is treated with fluids, medicines, diet changes, dialysis, or surgery. This information is not intended to replace advice given to you by your health care provider. Make sure you discuss any questions you have with your health care provider. Document Revised: 05/27/2020 Document Reviewed: 05/27/2020 [employer] Patient Education ?? 2021 [email or web address]. 04/09/2022 09:58:22Acute Compartment SyndromeAcute Compartment Syndrome Acute compartment syndrome is a painful condition that occurs when swelling and pressure build up suddenly in a body space (compartment). Groups of muscles, nerves, and blood vessels in the arms and legs are into various compartments. Each compartment is surrounded by tough layers of tissue called fascia. In compartment syndrome, pressure builds up within the layers of fascia and begins to push on the structures within that compartment. Compartment syndrome can occur in any muscle compartment of the body, but it is most common in the leg (below the knee) and in the arm (below the elbow). In acute compartment syndrome, the sudden pressure that builds up is often because of an injury. If pressure continues to build, it can block the flow of blood in the smallest blood vessels (capillaries). As a result, the muscles in the compartment cannot get enough oxygen and nutrients and will startto within 4???6 hours. The nerves will begin to within 12???24 hours. This condition is a medical emergency, and it must be treated with surgery. If left untreated, this condition could result in permanent damage or loss of the leg or arm. What are the causes? This condition may be caused by: ??? Injury. Some injuries can cause swelling or bleeding in a compartment, and this can lead to compartment syndrome. Injuries that may cause this problem include: ??? Broken bones, especially the long bones of your arms and legs. ??? Crushing injuries. ??? Badly bruised muscles. ??? Injuries from something that penetratesthe body, such as a knife that causes a wound. ??? Severe andrew. ??? Poisonous bites, such as a snake bite. ??? Blocked blood flow. Causes of blocked blood flow include: ??? A cast or bandage that is too tight. ??? A surgical procedure. Blood flow sometimes must be stopped for a while during a surgery, usuallywith a very tight device (tourniquet). ??? Lying for too long in a position that restricts blood flow. This can happen if you have nerve damage or if you are unconscious for a long time. ??? Anabolic steroids. These medicines are used to build up muscles. ??? Blood thinners. These medicines keep your blood from forming clots but can increase internal bleeding after an injury. What are the signs or symptoms? The main symptom of this condition is pain. ??? Pain may be far more severe than it should be for the injury you have. ??? Pain may get worse: ??? When moving or stretching the affected leg or arm. ??? When the area is pushed or squeezed. ??? When you raise (elevate) the affected area above the level of your heart. ??? Pain may come with a feeling of tingling or burning. ??? Pain may not get better when you take pain medicine. Other symptoms include: ??? A feeling of tightness or fullness in the affected area. ??? Numbness. ??? Weakness in the affected area. ??? Loss of movement. ??? Skin becoming pale, tight, and shiny over the painful area. ??? Warmth and tenderness. ??? Tensing when the affected area is touched. How is this diagnosed? This condition may be diagnosed based on: ??? Your history and symptoms. ??? A physical exam. ??? Measuring the pressure in the affected area (compartment pressure measurement). You may also have other tests, including: ??? X-rays. ??? Ultrasound. How is this treated? This condition is treated with a procedure called fasciotomy. This is an urgent procedure that is done as soon as possible to prevent muscle . In this procedure, incisions are made through the fascia to relieve the pressure in the compartment and to restore blood flow to that area. This procedurehelps to prevent permanent damage to the body part. Before the surgery, first-aid treatment is done,which may include: ??? Treating any injury. ??? Loosening or removing any splint, cast, bandage, or external wrap that may be causing pain. ??? Elevating the painful arm or leg to the same level as your heart. ??? Giving oxygen. ??? Giving fluids through an IV. ??? Giving pain medicine. Summary ??? Compartment syndrome occurs when swelling and pressure build up in a body space (compartment). Compartment syndrome can occur in any muscle compartment of the body but is most common in the leg (below the knee) and in the arm (below the elbow). ??? In acute compartment syndrome, the pressure builds up suddenly, often because of an injury. Thiscondition is a medical emergency. ??? Symptoms of acute compartment syndrome may include one or more of the following in the affected body part: severe pain, tingling or burning, weakness, loss of movement, or paleness. ??? First-aid treatment may include loosening or removing a splint, cast, bandage, or wrap. It may also include elevating your painful arm or leg to the same level as your heart. ??? Compartment syndrome must be treated with a surgical procedure called fasciotomy. This procedurerelieves pressure, restores blood flow, and prevents permanent damage. This information is not intended to replace advice given to you by your health care provider. Make sure you discuss any questions you have with your health care provider. Document Revised: 01/20/2021 Document Reviewed: 01/20/2021 [employer] Patient Education ?? 2021 [email or web address]. 04/09/2022 09:57:44Hospitalist Services Upon Discharge ([facility]) (CUSTOM) Services Upon Discharge Patient is being discharged home with these services in place HOME SERVICES: Home Services Discharge - Arrangements and orders for follow-up care Service Provider: Yulisa GUAMAN Contact Service(s) to be Provided: Pyhsical Therapy; Ocupational Therapy, RN-Nursing Frequency: 2x a week Additional Comments: WOUND CARE Every other day or PRN I reviewed the findings with kimberley. The STSG sites are nearly healed. The LUE will benefit from AgNO3 on the small area of excess granulation tissue. After cleansing the graft site with sterile saline, Iapplied Aquaphor to the skin grafted area and then covered with Telfa over the small area of excess g ranulation tissue. The arm was then wrapped in Kerlix followed by Nate wrap. For the left lower extremity, the area was cleansed with sterile saline and I applied silver Normlgel on the periphery of the graft site where there are small, scattered areas of excess granulation tissue. At the superior aspect of the graft site, I placed a piece of Opticel Ag to fill in if it where there is no re-epithelialization. I then covered this entire area with 2 ABD pads and taped this in place. I then used a Kerlix and Nate wrap over the upper thighs. The skin graft sites are mostly healed and likely can reduce the size of the bandage over the next week or so. The upper lateral left hip area will need some attention as well as the small scattered areas of open wound where there is no skin growth yet. These areas are small and the majority of both the left upper extremity and right upper extremity feels. I reviewed this with Max explained that we can look to making a less bulky dressing. With regard to the donor sites, these should be kept moisturized with Aquaphor or any other thick moisturizing cream. Date of the face to face encounter: 04/08/22 This visit was related to Cardiac Arrest for which the patient needs skilled home health services.??My clinical findings support the need for skilled: Occupational Therapy- 2x weekly for independence with ADLs Physical Therapy- 2x weekly for strengthening, endurance, balance and functional independence Nursing- CV and pulmonary assessment, medication education, daily dressing care The patient is homebound and requires considerable and taxing effort to leave their residence secondary to deconditioning after cardiac arrest, overdose, COVID To all home service providers, please contact the patient???s Primary Care Provider - RHONDA Mercer - with all follow up regarding your services. Reviewed and Electronically Signed By: Katheryn Rosa MD Date: 04/08/22 Follow Up Care03/23/2022 11:05:52With:ERIKA Address:Unknown When: Unknown Comments:Home Health PT/OT/NursingWith:Neurology, [facility] [place] Address: When: Unknown Comments:emg lle weakness-- Appt requested - office will call you at home with ApptWith:[facility] Address:Unknown When:04/12/2022 13:00:00 Comments:follow-upWith:Pau Strong Address: [address] [place] [phone] When:04/21/2022 10:00:00 Comments:follow-up Appt with your PCP US.doppler Lower extremity vein - left Generated Domain User for [id number]: PERFORM, VERIFY, VERIFY Event Display: Report Authored Date: [id number] Peripheral Venous Duplex (Signed Final 03/29/2022 01:22 pm) PATIENT INFO: ID #: [id number] : [birth year] (31 yrs)(M) Name: ALIX HOLLAND Visit Date:03/29/2022 11:34 am PERFORMED BY: Performed By: Justyna Juarez RDMS Attending: Lisandro Pruett MD Referred By: Katheryn Rosa Location: [facility] SERVICE(S) PROVIDED: [id number] - DVT Lower Extremity Limited Left - [id number] INDICATIONS: left leg pain and edmea r/o DVT TECHNIQUE/SCAN QUALITY: Technique: Mix scale, color and spectral Doppler of the lower extremity venous system. LOWER EXTREMITY PERIPHERAL VENOUS: RIGHT Vein Thrombu Compress Spontaneous Augment s Phasic CFV: No Yes Yes Yes LEFT Vein Thrombu Compress Spontaneous Augment s Phasic CFV: No Yes Yes Yes FV Junc: No Yes Yes Yes PFV: No Yes Yes Yes FV Prox: No Yes Yes Yes FV Mid: No Yes Yes Yes FV Dist: Yes No Pop: Yes No PTV: Yes Peron: Yes GSV: No Yes Yes IMPRESSION: Impression: Thrombosis with no significant flow in the distal right femoral and popliteal veins. Thank you for letting us participate in the care of this patient. If you are a health care provider and have any questions regarding this report, please contact the number above. For patients who have questions, please contact the health health care facility administrator that requested your imaging first. Lisandro Pruett, Staff Physician Electronically Signed Final Report 03/29/2022 01:22 pm Final Dictated: 03/29/2022 11:34 am Generated Domain User for [id number] Signed (Electronic Signature): 03/29/2022 11:34 am Signed by: Generated Domain User for [id number] Technologist: JUSTYNA JUAREZ CTA Chest vessels W contrast IV Saul Ram M.D.: VERIFY, VERIFY, PERFORM Generated Domain User for [id number]: TRANSCRIBE Event Display: Report Authored Date: [id number] EXAMINATION: CT ANGIO CHEST W/ CONTRAST CLINICAL HISTORY: elevated ddimer, persistent tachycardia, lower leg pain and swelling TECHNIQUE: Helical CT angiogram of the chest was performed following the intravenous administration of 75ml of Omnipaque 350. Maximum intensity projection (MIP) were reformatted. 3D images were generated on an independent workstation. COMPARISON: The chest CT portion of a study from 01/30/2022 FINDINGS: VASCULAR Pulmonary arteries: No pulmonary emboli. Heart: Normal size. Aorta: No stenosis or aneurysm. Great vessels: No stenosis or aneurysm. Celiac/SMA: No stenosis or aneurysm. NON-VASCULAR Lungs and large airways: No pulmonary nodules or areas of airspace consolidation Pleura: No pleural effusions Mediastinum and kolton: No adenopathy. Central venous catheter with tip in the superior vena cava. Limited views of the upper abdomen: No significant findings. Osseous structures: Within normal limits. IMPRESSION: Normal study. No evidence of pulmonary embolism. Thank you for letting us participate in the care of this patient. If you are a health care provider and have any questions regarding this report, please contact the number below. For patients who have questions please contact the health health care facility administrator that requested your imaging first. Final Dictated: 03/26/2022 4:31 pm Saul Ram M.D. Signed (Electronic Signature): 03/26/2022 4:26 pm Signed by: Saul Ram M.D. Transcribed by: [facility] Patient Care team information PersonnelName: Pau Strong Address: Address: [address] [place] [phone] [place]
--- OUTSIDE RECORDS SUMMARY | 2022-04-21 11:03 | XMS_ITS | Encounter Summary ---
:1990 Author Organization [facility] [place] [address] Care Team Providers Name Role Phone None Primary Care Provider Unavailable Encounter Details Date Type Department Care Team Description 03/26/2022 Interpretation Only [facility] Mary Drake MD [address] [place] [phone] [place] [address] [phone] (Wo rk) Social History Tobacco Use Types Packs/Day Years Used Date Current Every Day Smoker Cigarettes 0.5 Smokeless Tobacco: Never Used Alcohol Use Standard Drinks/Week Comments Yes 0 (1 standard drink = 0.6 oz pure alcoho l) 30 beers/day Alcohol Habits Answer Date Recorded How often do you have a drink containing alcohol? Not asked How many drinks containing alcohol do you have on a Not aske d typical day when you are drinking? How often do you have six or more drinks on one occasion? No t asked Comment: 30 beers/day 04/26/2021 Sex Assigned at Date Recorded Not on file documented as of this encounter Plan of Treatment Upcoming Encounters Date Type Specialty Care Team Description 06/09/2022 Procedure visit Neurology Summer Wiggins MD [facility] [place], [place] [address] (Wo rk) Scheduled Procedures Name Priority Associated Diagnoses Date/Time APPL SKIN SUB GRAFT HANDS, TO 100 SQ CM; Left ar m fasciotomy wound 1ST 25 SQ CM WOUND AREA (WRVU 1.83) documented as of this encounter Procedures Procedure Name Priority Date/Time Associated Diagnosis Comme nts CT ANGIOGRAM OF STAT 03/26/2022 4:19 PM Result s for this CHEST EDT procedure are i n (NON-CORONARY) W the results CONTRAST section. documented in this encounter Results CT Angiogram Chest (Non-Coronary) w Contrast (03/26/2022 4:19 PM EDT) [facility] gist Method Time Signature PT CLASS I RAD ADMITDTTM [id number] RAD PT RAD INFO [id number]^[facility] ta^Adam^^^M.D . EXAM DESC CTTHAO^CT ANGIO RAD CHEST W/ CONTRAST^RIS Anatomical Region Laterality Modality Chest Computed Tomography Specimen (Source) Anatomical Collection Method Collection Time Re ceived Time Location / / Volume Laterality 03/26/2022 4:19 PM EDT Impressions 03/26/2022 4:26 PM EDT Normal study. No evidence of pulmonary e mbolism. Thank you for letting us participate in the care of this patient. ??If you are a health care provider and have any questi ons regarding this report, please contact the number below. ??For patients who have questions please contact the health animal care supervisor that requested your imaging first. ? Narrative 03/26/2022 4:26 PM EDT EXAMINATION: CT ANGIO CHEST W/ CONTRAST CLINICAL HISTORY: elevated ddimer, persi stent tachycardia, lower leg pain and swelling TECHNIQUE: Helical CT angiogram of the c hest was performed following the intravenous administration of 75ml of Om nipaque 350. Maximum intensity projection (MIP) were reformatted. 3D im ages were generated on an independent workstation. COMPAR[facility] FINDINGS: VASCULAR Pulmonary arteries: No pulmonary emboli. Heart: Normal size. Aorta: No stenosis or aneurysm. Great vessels: No stenosis or aneurysm. Celiac/SMA: No stenosis or aneurysm. NON-VASCULAR Lungs and large airways: No pulmonary no dules or areas of airspace consolidation Pleura: No pleural effusions Mediastinum and kolton: No adenopathy. Desi tral venous catheter with tip in the superior vena cava. Limited views of the upper abdomen: No s ignificant findings. Osseous structures: Within normal limits . Procedure Note David Ram MD - 03/26/2022Form atting of this note might be different from the original. EXAMINATION: CT ANGIO CHEST W/ CONTRAST CLINICAL HISTORY: elevated ddimer, persi stent tachycardia, lower leg pain and swelling TECHNIQUE: Helical CT angiogram of the c hest was performed following the intravenous administration of 75ml of Om nipaque 350. Maximum intensity projection (MIP) were reformatted. 3D im ages were generated on an independent workstation. COMPARISON: [facility] FINDINGS: VASCULAR Pulmonary arteries: No pulmonary emboli. Heart: Normal size. Aorta: No stenosis or aneurysm. Great vessels: No stenosis or aneurysm. Celiac/SMA: No stenosis or aneurysm. NON-VASCULAR Lungs and large airways: No pulmonary no dules or areas of airspace consolidation Pleura: No pleural effusions Mediastinum and kolton: No adenopathy. Desi tral venous catheter with tip in the superior vena cava. Limited views of the upper abdomen: No s ignificant findings. Osseous structures: Within normal limits . IMPRESSION Normal study. No evidence of pulmonary e mbolism. Thank you for letting us participate in the care of this patient. If you are a health care provider and have any questi ons regarding this report, please contact the number below. For patients w ho have questions please contact the health animal care supervisor that requested your imaging first. Adam Mosquera MD IMG CT ORDERABLES documented in this encounter Visit Diagnoses Not on filedocumented in this encounter Additional Health Concerns Infection Onset Date Last Indicated Resolved Time History of COVID-19Comment: Retesting fo r COVID is not recommended unless infectious syndrome persists with no alternate explanation. 02/08/2022 02/08/2022 Positive test on 01/23/2022 Please do not retest prior to 04/25/2022 Please call Infection Prevention [phone] with questions. History of C. difficileComment: Patient has 03/19/202203/01 met the 5 C's and is eligible to end soap and water contact precautions. Currently on PO vanc prophylacticly due to getting antibiotics for tx. documented as of this encounter Care Teams Control Clerk Relationship Specialty Start Date End Date None PCP - General 03/10/19 None documented as of this encounter
--- OUTSIDE RECORDS SUMMARY | 2022-04-21 11:03 | XMS_ITS | Clinical Summary ---
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 02/19/2022 8:42 LUE and LLE OTHER THAN GALLOWAY) AM EDT fasciotomies UNDER ANES., UPPER EXTREMITY (WRVU 0.86) DEBRIDEMENT SKIN, 02/19/2022 8:42 LUE and LLE SUBCU, MUSCLE, LOWER AM EDT fasciotomies EXTREMITY (WRVU 2.7) DRESSING CHANGE (FOR Routine 02/19/2022 7:11 OTHER THAN GALLOWAY) AM EDT UNDER ANES., UPPER EXTREMITY DEBRIDEMENT SKIN, Routine 02/19/2022 7:11 SUBCU, MUSCLE, LOWER AM EDT EXTREMITY VITAMIN D, 25-HYDROXY Routine 02/19/2022 12:27 Re sults for this AM EDT procedure are i n the results section. FERRITIN Routine 02/19/2022 12:27 Results for this AM EDT procedure are i n the results section. DIFFERENTIAL, Routine 02/19/2022 12:27 Results fo r this AUTOMATED AM EDT procedure are i n the results section. HEMOGRAM Routine 02/19/2022 12:27 Results for this AM EDT procedure are i n the results section. HC CBC,PLT & AUTO DIFF Routine 02/19/2022 12:27 AM EDT BASIC METABOLIC PANEL Routine 02/19/2022 12:27 Re sults for this (NON-FASTING) AM EDT procedure are in the results section. HC PHOSPHORUS, SERUM Routine 02/19/2022 12:27 Res ults for this AM EDT procedure are i n the results section. HC MAGNESIUM, SERUM Routine 02/19/2022 12:27 Resu lts for this AM EDT procedure are i n the results section. HC HEPATITIS B SURFACE Routine 02/19/2022 12:27 R esults for this AG AM EDT procedure are i n the results section. SCAN, PERIPHERAL BLOOD Routine 02/18/2022 4:01 Re sults for this AM EDT procedure are i n the results section. DIFFERENTIAL, Routine 02/18/2022 4:01 Results for this AUTOMATED AM EDT procedure are i n the results section. HEMOGRAM Routine 02/18/2022 4:01 Results for this AM EDT procedure are i n the results section. BASIC METABOLIC PANEL Routine 02/18/2022 4:01 Res ults for this (NON-FASTING) AM EDT procedure are in the results section. HC CBC,PLT & AUTO DIFF Routine 02/18/2022 4:01 AM EDT HC PHOSPHORUS, SERUM Routine 02/18/2022 4:01 Resu lts for this AM EDT procedure are i n the results section. HC MAGNESIUM, SERUM Routine 02/18/2022 4:01 Resul ts for this AM EDT procedure are i n the results section. ANAEROBIC CULTURE Routine 02/17/2022 8:35 Results for this AM EDT procedure are i n the results section. ABSCESS/WOUND ASPIRATE Routine 02/17/2022 8:35 Re sults for this CULTURE AM EDT procedure are i n the results section. ANAEROBIC CULTURE Routine 02/17/2022 8:35 Results for this AM EDT procedure are i n the results section. ABSCESS/WOUND ASPIRATE Routine 02/17/2022 8:35 Re sults for this CULTURE AM EDT procedure are i n the results section. HC WOUND/ABSCESS CX Routine 02/17/2022 8:35 AM EDT HC WOUND/ABSCESS CX Routine 02/17/2022 8:35 AM EDT MODIFIER WOUND VAC 02/17/2022 7:31 LUE and LLE AM EDT fasciotomies DRESSING CHANGE (FOR 02/17/2022 7:31 LUE and LLE OTHER THAN GALLOWAY) AM EDT fasciotomies UNDER ANES., UPPER EXTREMITY (WRVU 0.86) DEBRIDEMENT SKIN AND 02/17/2022 7:31 LUE and LLE SUBCU, LOWER EXTREMITY AM EDT fasciotomies (WRVU 1.01) DRESSING CHANGE (FOR Routine 02/17/2022 6:16 OTHER THAN GALLOWAY) AM EDT UNDER ANES., UPPER EXTREMITY DEBRIDEMENT SKIN AND Routine 02/17/2022 6:16 SUBCU, LOWER EXTREMITY AM EDT DIFFERENTIAL, Routine 02/17/2022 3:40 Results for this AUTOMATED AM EDT procedure are i n the results section. HEMOGRAM Routine 02/17/2022 3:40 Results for this AM EDT procedure are i n the results section. BASIC METABOLIC PANEL Routine 02/17/2022 3:40 Res ults for this (NON-FASTING) AM EDT procedure are in the results section. HC CBC,PLT & AUTO DIFF Routine 02/17/2022 3:40 AM EDT HC PHOSPHORUS, SERUM Routine 02/17/2022 3:40 Resu lts for this AM EDT procedure are i n the results section. HC MAGNESIUM, SERUM Routine 02/17/2022 3:40 Resul ts for this AM EDT procedure are i n the results section. DIFFERENTIAL, Routine 02/16/2022 4:05 Results for this AUTOMATED AM EDT procedure are i n the results section. HEMOGRAM Routine 02/16/2022 4:05 Results for this AM EDT procedure are i n the results section. BASIC METABOLIC PANEL Routine 02/16/2022 4:05 Res ults for this (NON-FASTING) AM EDT procedure are in the results section. HC CBC,PLT & AUTO DIFF Routine 02/16/2022 4:05 AM EDT HC PHOSPHORUS, SERUM Routine 02/16/2022 4:05 Resu lts for this AM EDT procedure are i n the results section. HC MAGNESIUM, SERUM Routine 02/16/2022 4:05 Resul ts for this AM EDT procedure are i n the results section. SCAN DOC: TELEMETRY 02/15/2022 9:46 STRIPS AM EDT ANAEROBIC CULTURE Routine 02/15/2022 9:06 Results for this AM EDT procedure are i n the results section. ABSCESS/WOUND ASPIRATE Routine 02/15/2022 9:06 Re sults for this CULTURE AM EDT procedure are i n the results section. HC WOUND/ABSCESS CX Routine 02/15/2022 9:06 AM EDT DEBRIDEMENT SKIN, 02/15/2022 7:42 compartment syndrome SUBCU, MUSCLE, UPPER AM EDT LLE, EXTREMITY (WRVU 2.7) MODIFIER WOUND VAC 02/15/2022 7:42 compartment syndrom e AM EDT LLE, DEBRIDEMENT SKIN AND 02/15/2022 7:42 compartment syndr ome SUBCU, LOWER EXTREMITY AM EDT LLE, (WRVU 1.01) DEBRIDEMENT SKIN, Routine 02/15/2022 6:14 SUBCU, MUSCLE, UPPER AM EDT EXTREMITY DEBRIDEMENT SKIN AND Routine 02/15/2022 6:14 SUBCU, LOWER EXTREMITY AM EDT DIFFERENTIAL, Routine 02/15/2022 3:50 Results for this AUTOMATED AM EDT procedure are i n the results section. HEMOGRAM Routine 02/15/2022 3:50 Results for this AM EDT procedure are i n the results section. BASIC METABOLIC PANEL Routine 02/15/2022 3:50 Res ults for this (NON-FASTING) AM EDT procedure are in the results section. HC CBC,PLT & AUTO DIFF Routine 02/15/2022 3:50 AM EDT HC PHOSPHORUS, SERUM Routine 02/15/2022 3:50 Resu lts for this AM EDT procedure are i n the results section. HC MAGNESIUM, SERUM Routine 02/15/2022 3:50 Resul ts for this AM EDT procedure are i n the results section. SCAN, PERIPHERAL BLOOD Routine 02/14/2022 5:26 Re sults for this AM EDT procedure are i n the results section. DIFFERENTIAL, Routine 02/14/2022 5:26 Results for this AUTOMATED AM EDT procedure are i n the results section. HEMOGRAM Routine 02/14/2022 5:26 Results for this AM EDT procedure are i n the results section. BASIC METABOLIC PANEL Routine 02/14/2022 5:26 Res ults for this (NON-FASTING) AM EDT procedure are in the results section. HC CBC,PLT & AUTO DIFF Routine 02/14/2022 5:26 AM EDT HC PHOSPHORUS, SERUM Routine 02/14/2022 5:26 Resu lts for this AM EDT procedure are i n the results section. HC MAGNESIUM, SERUM Routine 02/14/2022 5:26 Resul ts for this AM EDT procedure are i n the results section. CT FEMUR W CONTRAST STAT 02/13/2022 3:36 Resul ts for this LEFT PM EDT procedure are i n the results section. CT ABDOMEN AND PELVIS STAT 02/13/2022 3:36 Res ults for this W CONTRAST PM EDT procedure are i n the results section. MODIFIER WOUND VAC 02/13/2022 8:44 LUE and LLE AM EDT fasciotomies DRESSING CHANGE (FOR 02/13/2022 8:44 LUE and LLE OTHER THAN GALLOWAY) AM EDT fasciotomies UNDER ANES., UPPER EXTREMITY (WRVU 0.86) DEBRIDEMENT SKIN AND 02/13/2022 8:44 LUE and LLE SUBCU, LOWER EXTREMITY AM EDT fasciotomies (WRVU 1.01) XR ABDOMEN 1 VIEW Routine 02/13/2022 8:10 Results for this AM EDT procedure are i n the results section. DRESSING CHANGE (FOR Routine 02/13/2022 7:20 OTHER THAN GALLOWAY) AM EDT UNDER ANES., UPPER EXTREMITY DEBRIDEMENT SKIN AND Routine 02/13/2022 7:20 SUBCU, LOWER EXTREMITY AM EDT SCAN, PERIPHERAL BLOOD Routine 02/13/2022 12:20 R esults for this AM EDT procedure are i n the results section. DIFFERENTIAL, Routine 02/13/2022 12:20 Results fo r this AUTOMATED AM EDT procedure are i n the results section. HEMOGRAM Routine 02/13/2022 12:20 Results for this AM EDT procedure are i n the results section. BASIC METABOLIC PANEL Routine 02/13/2022 12:20 Re sults for this (NON-FASTING) AM EDT procedure are in the results section. HC CBC,PLT & AUTO DIFF Routine 02/13/2022 12:20 AM EDT HC PHOSPHORUS, SERUM Routine 02/13/2022 12:20 Res ults for this AM EDT procedure are i n the results section. HC MAGNESIUM, SERUM Routine 02/13/2022 12:20 Resu lts for this AM EDT procedure are i n the results section. HC SODIUM Timed 02/12/2022 4:45 Results for this PM EDT procedure are i n the results section. TRANSFUSE RED BLOOD Routine 02/12/2022 11:16 CELLS AM EDT PREPARE RBC Routine 02/12/2022 9:55 Results for this AM EDT procedure are i n the results section. HC SODIUM Timed 02/12/2022 9:16 Results for this AM EDT procedure are i n the results section. DIFFERENTIAL, Routine 02/12/2022 12:30 Results fo r this AUTOMATED AM EDT procedure are i n the results section. HEMOGRAM Routine 02/12/2022 12:30 Results for this AM EDT procedure are i n the results section. HC ALBUMIN, SERUM Routine 02/12/2022 12:30 Result s for this AM EDT procedure are i n the results section. HC PREALBUMIN, SERUM Routine 02/12/2022 12:30 Res ults for this AM EDT procedure are i n the results section. BASIC METABOLIC PANEL Routine 02/12/2022 12:30 Re sults for this (NON-FASTING) AM EDT procedure are in the results section. HC CBC,PLT & AUTO DIFF Routine 02/12/2022 12:30 AM EDT HC PHOSPHORUS, SERUM Routine 02/12/2022 12:30 Res ults for this AM EDT procedure are i n the results section. HC MAGNESIUM, SERUM Routine 02/12/2022 12:30 Resu lts for this AM EDT procedure are i n the results section. LAB SCAN 02/12/2022 12:00 Results for this AM EDT procedure are i n the results section. MRI BRAIN WO CONTRAST Routine 02/11/2022 5:13 Res ults for this PM EDT procedure are i n the results section. HC SODIUM Timed 02/11/2022 4:09 Results for this PM EDT procedure are i n the results section. SCAN DOC: TELEMETRY 02/11/2022 11:05 STRIPS AM EDT MODIFIER WOUND VAC 02/11/2022 9:34 LUE and LLE AM EDT fasciotomies DRESSING CHANGE (FOR 02/11/2022 9:34 LUE and LLE OTHER THAN GALLOWAY) AM EDT fasciotomies UNDER ANES., UPPER EXTREMITY (WRVU 0.86) DEBRIDEMENT SKIN AND 02/11/2022 9:34 LUE and LLE SUBCU, LOWER EXTREMITY AM EDT fasciotomies (WRVU 1.01) HC SODIUM Timed 02/11/2022 8:20 Results for this AM EDT procedure are i n the results section. DRESSING CHANGE (FOR Routine 02/11/2022 5:43 OTHER THAN GALLOWAY) AM EDT UNDER ANES., UPPER EXTREMITY DEBRIDEMENT SKIN AND Routine 02/11/2022 5:43 SUBCU, LOWER EXTREMITY AM EDT SCAN, PERIPHERAL BLOOD Routine 02/11/2022 12:37 R esults for this AM EDT procedure are i n the results section. GREEN TUBE HOLD Routine 02/11/2022 12:37 Results for this AM EDT procedure are i n the results section. DIFFERENTIAL, Routine 02/11/2022 12:37 Results fo r this AUTOMATED AM EDT procedure are i n the results section. HEMOGRAM Routine 02/11/2022 12:37 Results for this AM EDT procedure are i n the results section. BASIC METABOLIC PANEL Routine 02/11/2022 12:37 Re sults for this (NON-FASTING) AM EDT procedure are in the results section. HC CBC,PLT & AUTO DIFF Routine 02/11/2022 12:37 AM EDT HC PHOSPHORUS, SERUM Routine 02/11/2022 12:37 Res ults for this AM EDT procedure are i n the results section. HC MAGNESIUM, SERUM Routine 02/11/2022 12:37 Resu lts for this AM EDT procedure are i n the results section. HC SODIUM Timed 02/10/2022 4:47 Results for this PM EDT procedure are i n the results section. SODIUM Routine 02/10/2022 9:05 Results for this AM EDT procedure are i n the results section. SCAN, PERIPHERAL BLOOD Routine 02/10/2022 12:00 R esults for this AM EDT procedure are i n the results section. DIFFERENTIAL, Routine 02/10/2022 12:00 Results fo r this AUTOMATED AM EDT procedure are i n the results section. HEMOGRAM Routine 02/10/2022 12:00 Results for this AM EDT procedure are i n the results section. HC CBC,PLT & AUTO DIFF Routine 02/10/2022 12:00 AM EDT HC PHOSPHORUS, SERUM Routine 02/10/2022 12:00 Res ults for this AM EDT procedure are i n the results section. HC MAGNESIUM, SERUM Routine 02/10/2022 12:00 Resu lts for this AM EDT procedure are i n the results section. BASIC METABOLIC PANEL Routine 02/10/2022 12:00 Re sults for this (NON-FASTING) AM EDT procedure are in the results section. BLOOD GAS ARTERIAL Routine 02/09/2022 5:43 Result s for this ([facility]) PM EDT procedure are i n the results section. HC PHOSPHORUS, SERUM STAT 02/09/2022 5:35 Resu lts for this PM EDT procedure are i n the results section. ELECTROLYTES PANEL STAT 02/09/2022 5:35 Result s for this PM EDT procedure are i n the results section. HC SODIUM Timed 02/09/2022 5:35 Results for this PM EDT procedure are i n the results section. ANAEROBIC CULTURE Routine 02/09/2022 4:26 Results for this PM EDT procedure are i n the results section. TISSUE CULTURE Routine 02/09/2022 4:26 Results fo r this PM EDT procedure are i n the results section. HC TISSUE Routine 02/09/2022 4:26 HOMOGENIZATION FOR PM EDT CULTURE MODIFIER WOUND VAC 02/09/2022 3:36 LLE fasciotomies PM EDT DEBRIDEMENT SKIN AND 02/09/2022 3:36 LLE fasciotomies SUBCU, LOWER EXTREMITY PM EDT (WRVU 1.01) HC SODIUM Timed 02/09/2022 12:29 Results for this PM EDT procedure are i n the results section. BLOOD GAS ARTERIAL Routine 02/09/2022 12:20 Resul ts for this ([facility]) PM EDT procedure are i n the results section. HC PHOSPHORUS, SERUM STAT 02/09/2022 10:08 Res ults for this AM EDT procedure are i n the results section. DEBRIDEMENT SKIN AND Routine 02/09/2022 7:21 SUBCU, LOWER EXTREMITY AM EDT HC PHOSPHORUS, SERUM STAT 02/09/2022 6:25 Resu lts for this AM EDT procedure are i n the results section. HC SODIUM Timed 02/09/2022 6:25 Results for this AM EDT procedure are i n the results section. TRANSFUSE RED BLOOD Routine 02/09/2022 3:43 CELLS AM EDT TYPE AND SCREEN STAT 02/09/2022 2:30 Results f or this VALIDITY AM EDT procedure are i n the results section. ABORH RECHECK STATUS STAT 02/09/2022 2:30 Resu lts for this AM EDT procedure are i n the results section. ANTIBODY SCREEN STAT 02/09/2022 2:30 Results f or this AM EDT procedure are i n the results section. ABO/RH TYPING STAT 02/09/2022 2:30 Results for this AM EDT procedure are i n the results section. HC ANTIBODY STAT 02/09/2022 2:30 DETECTION,CAPTURE-R AM EDT PREPARE RBC STAT 02/09/2022 2:20 Results for this AM EDT procedure are i n the results section. BLOOD GAS 2 ARTERIAL Routine 02/09/2022 1:02 Resu lts for this AM EDT procedure are i n the results section. SCAN, PERIPHERAL BLOOD Routine 02/09/2022 12:55 R esults for this AM EDT procedure are i n the results section. DIFFERENTIAL, Routine 02/09/2022 12:55 Results fo r this AUTOMATED AM EDT procedure are i n the results section. HEMOGRAM Routine 02/09/2022 12:55 Results for this AM EDT procedure are i n the results section. BASIC METABOLIC PANEL Routine 02/09/2022 12:55 Re sults for this (NON-FASTING) AM EDT procedure are in the results section. HC CBC,PLT & AUTO DIFF Routine 02/09/2022 12:55 AM EDT HC PHOSPHORUS, SERUM Routine 02/09/2022 12:55 Res ults for this AM EDT procedure are i n the results section. HC MAGNESIUM, SERUM Routine 02/09/2022 12:55 Resu lts for this AM EDT procedure are i n the results section. SCAN, PERIPHERAL BLOOD Routine 02/08/2022 6:00 Re sults for this PM EDT procedure are i n the results section. DIFFERENTIAL, Routine 02/08/2022 6:00 Results for this AUTOMATED PM EDT procedure are i n the results section. HEMOGRAM Routine 02/08/2022 6:00 Results for this PM EDT procedure are i n the results section. BLOOD GAS ARTERIAL Routine 02/08/2022 6:00 Result s for this ([facility]) PM EDT procedure are i n the results section. HC CBC,PLT & AUTO DIFF Routine 02/08/2022 6:00 PM EDT HC SODIUM Timed 02/08/2022 6:00 Results for this PM EDT procedure are i n the results section. POCT GLUCOSE Routine 02/08/2022 5:56 Results for this PM EDT procedure are i n the results section. EACH ADDITIONAL 20 SQ Routine 02/08/2022 4:18 CM, OR PART THEREOF PM EDT DRESSING CHANGE (VAC Routine 02/08/2022 4:18 ASSISTED) UP TO PM EDT 50SQ.CM ANAEROBIC CULTURE Routine 02/08/2022 4:13 Results for this PM EDT procedure are i n the results section. ABSCESS/WOUND ASPIRATE Routine 02/08/2022 4:13 Re sults for this CULTURE PM EDT procedure are i n the results section. ANAEROBIC CULTURE Routine 02/08/2022 4:13 Results for this PM EDT procedure are i n the results section. ABSCESS/WOUND ASPIRATE Routine 02/08/2022 4:13 Re sults for this CULTURE PM EDT procedure are i n the results section. HC GRAM STAIN FOR Routine 02/08/2022 4:13 BACTERIA PM EDT HC WOUND/ABSCESS CX Routine 02/08/2022 4:13 PM EDT DRESSING CHANGE (VAC 02/08/2022 3:21 LLE fasciotomies ASSISTED) UP TO PM EDT 50SQ.CM (WRVU 0.55) EACH ADDITIONAL 20 SQ 02/08/2022 3:21 LLE fasciotomies CM, OR PART THEREOF PM EDT (WRVU 1.8) DEBRIDEMENT SKIN AND 02/08/2022 3:21 LLE fasciotomies SUBCU, LOWER EXTREMITY PM EDT (WRVU 1.01) POCT GLUCOSE Routine 02/08/2022 12:09 Results for this PM EDT procedure are i n the results section. POCT GLUCOSE Routine 02/08/2022 12:09 Results for this PM EDT procedure are i n the results section. BLOOD GAS ARTERIAL Routine 02/08/2022 12:00 Resul ts for this ([facility]) PM EDT procedure are i n the results section. HC SODIUM Timed 02/08/2022 12:00 Results for this PM EDT procedure are i n the results section. HC PH DETERMINATION, STAT 02/08/2022 11:00 Res ults for this ARTERIAL AM EDT procedure are i n the results section. POCT GLUCOSE Routine 02/08/2022 9:56 Results for this AM EDT procedure are i n the results section. SCAN DOC: TELEMETRY 02/08/2022 9:28 STRIPS AM EDT DEBRIDEMENT SKIN AND Routine 02/08/2022 9:06 SUBCU, LOWER EXTREMITY AM EDT BLOOD GAS 2 ARTERIAL Routine 02/08/2022 8:15 Resu lts for this AM EDT procedure are i n the results section. POCT GLUCOSE Routine 02/08/2022 7:42 Results for this AM EDT procedure are i n the results section. HC PHOSPHORUS, SERUM Routine 02/08/2022 5:57 Resu lts for this AM EDT procedure are i n the results section. HC MAGNESIUM, SERUM Routine 02/08/2022 5:57 Resul ts for this AM EDT procedure are i n the results section. BASIC METABOLIC PANEL Routine 02/08/2022 5:57 Res ults for this (NON-FASTING) AM EDT procedure are in the results section. BLOOD GAS 2 ARTERIAL Routine 02/08/2022 5:54 Resu lts for this AM EDT procedure are i n the results section. SCAN, PERIPHERAL BLOOD Routine 02/08/2022 1:00 Re sults for this AM EDT procedure are i n the results section. DIFFERENTIAL, Routine 02/08/2022 1:00 Results for this AUTOMATED AM EDT procedure are i n the results section. HEMOGRAM Routine 02/08/2022 1:00 Results for this AM EDT procedure are i n the results section. HC CBC,PLT & AUTO DIFF Routine 02/08/2022 1:00 AM EDT HC FIBRINOGEN TITER Routine 02/08/2022 1:00 Resul ts for this AM EDT procedure are i n the results section. HC PARTIAL Routine 02/08/2022 1:00 Results for this THROMBOPLASTIN TIME AM EDT procedur e are in the results section. HC PROTHROMBIN TIME Routine 02/08/2022 1:00 Resul ts for this AM EDT procedure are i n the results section. BLOOD GAS ARTERIAL STAT 02/08/2022 12:01 Resul ts for this ([facility]) AM EDT procedure are i n the results section. HC SODIUM Timed 02/08/2022 12:01 Results for this AM EDT procedure are i n the results section. TRANSFUSE RED BLOOD Routine 02/07/2022 8:00 CELLS PM EDT PREPARE RBC STAT 02/07/2022 7:40 Results for this PM EDT procedure are i n the results section. BLOOD GAS 2 ARTERIAL Routine 02/07/2022 6:08 Resu lts for this PM EDT procedure are i n the results section. SCAN, PERIPHERAL BLOOD Routine 02/07/2022 6:05 Re sults for this PM EDT procedure are i n the results section. DIFFERENTIAL, Routine 02/07/2022 6:05 Results for this AUTOMATED PM EDT procedure are i n the results section. HEMOGRAM Routine 02/07/2022 6:05 Results for this PM EDT procedure are i n the results section. HC CBC,PLT & AUTO DIFF Routine 02/07/2022 6:05 PM EDT HC SODIUM Timed 02/07/2022 6:05 Results for this PM EDT procedure are i n the results section. HC PH DETERMINATION, STAT 02/07/2022 4:30 Resu lts for this ARTERIAL PM EDT procedure are i n the results section. TRANSFUSE RED BLOOD Routine 02/07/2022 2:20 CELLS PM EDT PREPARE RBC Routine 02/07/2022 1:30 Results for this PM EDT procedure are i n the results section. XR CHEST ONE VIEW STAT 02/07/2022 1:15 Results for this PM EDT procedure are i n the results section. BLOOD GAS 2 ARTERIAL Routine 02/07/2022 1:04 Resu lts for this PM EDT procedure are i n the results section. PHOSPHORUS Routine 02/07/2022 1:00 Results for this PM EDT procedure are i n the results section. MAGNESIUM Routine 02/07/2022 1:00 Results for this PM EDT procedure are i n the results section. DIFFERENTIAL, STAT 02/07/2022 1:00 Results for this AUTOMATED PM EDT procedure are i n the results section. HEMOGRAM STAT 02/07/2022 1:00 Results for this PM EDT procedure are i n the results section. BASIC METABOLIC PANEL Routine 02/07/2022 1:00 Res ults for this (NON-FASTING) PM EDT procedure are in the results section. HC CBC,PLT & AUTO DIFF STAT 02/07/2022 1:00 PM EDT CENTRAL LINE Routine 02/07/2022 12:52 Results for this PM EDT procedure are i n the results section. SCAN DOC: TELEMETRY 02/07/2022 9:56 STRIPS AM EDT SCAN DOC: TELEMETRY 02/07/2022 9:56 STRIPS AM EDT POCT GLUCOSE Routine 02/07/2022 8:22 Results for this AM EDT procedure are i n the results section. BLOOD GAS 2 ARTERIAL Routine 02/07/2022 8:16 Resu lts for this AM EDT procedure are i n the results section. SCAN, PERIPHERAL BLOOD Routine 02/07/2022 6:05 Re sults for this AM EDT procedure are i n the results section. DIFFERENTIAL, Routine 02/07/2022 6:05 Results for this AUTOMATED AM EDT procedure are i n the results section. HEMOGRAM Routine 02/07/2022 6:05 Results for this AM EDT procedure are i n the results section. HC CBC,PLT & AUTO DIFF Routine 02/07/2022 6:05 AM EDT HC SODIUM Timed 02/07/2022 6:05 Results for this AM EDT procedure are i n the results section. TRANSFUSE RED BLOOD Routine 02/07/2022 5:00 CELLS AM EDT PREPARE RBC Routine 02/07/2022 4:55 Results for this AM EDT procedure are i n the results section. HC PH DETERMINATION, STAT 02/07/2022 3:00 Resu lts for this ARTERIAL AM EDT procedure are i n the results section. FIBRINOGEN Routine 02/07/2022 2:10 Results for this AM EDT procedure are i n the results section. PROTHROMBIN TIME Routine 02/07/2022 2:10 Results for this AM EDT procedure are i n the results section. PLATELET COUNT Routine 02/07/2022 2:10 Results fo r this AM EDT procedure are i n the results section. HEMATOCRIT Routine 02/07/2022 2:10 Results for this AM EDT procedure are i n the results section. HEMOGLOBIN Routine 02/07/2022 2:10 Results for this AM EDT procedure are i n the results section. HC FIBRINOGEN TITER Routine 02/07/2022 2:10 AM EDT BLOOD GAS 2 ARTERIAL Routine 02/07/2022 12:52 Res ults for this AM EDT procedure are i n the results section. BASIC METABOLIC PANEL Routine 02/07/2022 12:47 Re sults for this (NON-FASTING) AM EDT procedure are in the results section. HC PHOSPHORUS, SERUM Routine 02/07/2022 12:47 Res ults for this AM EDT procedure are i n the results section. HC MAGNESIUM, SERUM Routine 02/07/2022 12:47 Resu lts for this AM EDT procedure are i n the results section. FIBRINOGEN Routine 02/06/2022 11:11 Results for this PM EDT procedure are i n the results section. PROTHROMBIN TIME Routine 02/06/2022 11:11 Results for this PM EDT procedure are i n the results section. PLATELET COUNT Routine 02/06/2022 11:11 Results f or this PM EDT procedure are i n the results section. HEMATOCRIT Routine 02/06/2022 11:11 Results for this PM EDT procedure are i n the results section. HEMOGLOBIN Routine 02/06/2022 11:11 Results for this PM EDT procedure are i n the results section. HC PLATELET COUNT Routine 02/06/2022 11:11 PM EDT HC SODIUM Timed 02/06/2022 11:11 Results for this PM EDT procedure are i n the results section. HC PH DETERMINATION, STAT 02/06/2022 10:51 Res ults for this ARTERIAL PM EDT procedure are i n the results section. FIBRINOGEN Routine 02/06/2022 10:20 Results for this PM EDT procedure are i n the results section. PROTHROMBIN TIME Routine 02/06/2022 10:20 Results for this PM EDT procedure are i n the results section. PLATELET COUNT Routine 02/06/2022 10:20 Results f or this PM EDT procedure are i n the results section. HEMATOCRIT Routine 02/06/2022 10:20 Results for this PM EDT procedure are i n the results section. HEMOGLOBIN Routine 02/06/2022 10:20 Results for this PM EDT procedure are i n the results section. HC HEMOGLOBIN, BLOOD Routine 02/06/2022 10:20 PM EDT FIBRINOGEN Routine 02/06/2022 7:45 Results for this PM EDT procedure are i n the results section. PROTHROMBIN TIME Routine 02/06/2022 7:45 Results for this PM EDT procedure are i n the results section. PLATELET COUNT Routine 02/06/2022 7:45 Results fo r this PM EDT procedure are i n the results section. HEMATOCRIT Routine 02/06/2022 7:45 Results for this PM EDT procedure are i n the results section. HEMOGLOBIN Routine 02/06/2022 7:45 Results for this PM EDT procedure are i n the results section. ELECTROLYTES PANEL STAT 02/06/2022 7:45 Result s for this PM EDT procedure are i n the results section. HC FIBRINOGEN TITER Routine 02/06/2022 7:45 PM EDT BLOOD GAS 2 ARTERIAL Routine 02/06/2022 7:44 Resu lts for this PM EDT procedure are i n the results section. BLOOD GAS 2 ARTERIAL Routine 02/06/2022 5:47 Resu lts for this PM EDT procedure are i n the results section. POCT GLUCOSE Routine 02/06/2022 5:44 Results for this PM EDT procedure are i n the results section. HC FIBRINOGEN TITER STAT 02/06/2022 4:33 Resul ts for this PM EDT procedure are i n the results section. HC PARTIAL Routine 02/06/2022 4:33 Results for this THROMBOPLASTIN TIME PM EDT procedur e are in the results section. HC PROTHROMBIN TIME STAT 02/06/2022 4:33 Resul ts for this PM EDT procedure are i n the results section. PHOSPHORUS STAT 02/06/2022 4:20 Results for this PM EDT procedure are i n the results section. MAGNESIUM STAT 02/06/2022 4:20 Results for this PM EDT procedure are i n the results section. DIFFERENTIAL, Routine 02/06/2022 4:20 Results for this AUTOMATED PM EDT procedure are i n the results section. HEMOGRAM Routine 02/06/2022 4:20 Results for this PM EDT procedure are i n the results section. BASIC METABOLIC PANEL STAT 02/06/2022 4:20 Res ults for this (NON-FASTING) PM EDT procedure are in the results section. HC CBC,PLT & AUTO DIFF Routine 02/06/2022 4:20 PM EDT BLOOD GAS 2 ARTERIAL Routine 02/06/2022 3:54 Resu lts for this PM EDT procedure are i n the results section. IR ARTERIOGRAM LOWER Routine 02/06/2022 3:34 Resu lts for this EXTREMITY PM EDT procedure are i n the results section. INCISION & DRAINAGE 02/06/2022 3:11 left thigh bleed ABSCESS OR HEMATOMA, PM EDT THIGH, KNEE SUPERFICIAL (WRVU 6.78) INCISION & DRAINAGE Routine 02/06/2022 12:30 ABSCESS OR HEMATOMA, PM EDT THIGH, KNEE SUPERFICIAL POCT GLUCOSE Routine 02/06/2022 12:16 Results for this PM EDT procedure are i n the results section. FIBRINOGEN Routine 02/06/2022 11:30 Results for this AM EDT procedure are i n the results section. PROTHROMBIN TIME Routine 02/06/2022 11:30 Results for this AM EDT procedure are i n the results section. PLATELET COUNT Routine 02/06/2022 11:30 Results f or this AM EDT procedure are i n the results section. HEMATOCRIT Routine 02/06/2022 11:30 Results for this AM EDT procedure are i n the results section. HEMOGLOBIN Routine 02/06/2022 11:30 Results for this AM EDT procedure are i n the results section. HC PLATELET COUNT Routine 02/06/2022 11:30 AM EDT HC SODIUM Timed 02/06/2022 11:30 Results for this AM EDT procedure are i n the results section. PREPARE RBC STAT 02/06/2022 10:35 Results for this AM EDT procedure are i n the results section. FIBRINOGEN Routine 02/06/2022 9:35 Results for this AM EDT procedure are i n the results section. PROTHROMBIN TIME Routine 02/06/2022 9:35 Results for this AM EDT procedure are i n the results section. PLATELET COUNT Routine 02/06/2022 9:35 Results fo r this AM EDT procedure are i n the results section. HEMATOCRIT Routine 02/06/2022 9:35 Results for this AM EDT procedure are i n the results section. HEMOGLOBIN Routine 02/06/2022 9:35 Results for this AM EDT procedure are i n the results section. HC PLATELET COUNT Routine 02/06/2022 9:35 AM EDT TRANSFUSE RED BLOOD STAT 02/06/2022 9:14 CELLS AM EDT BLOOD GAS 2 ARTERIAL Routine 02/06/2022 9:06 Resu lts for this AM EDT procedure are i n the results section. HC PHOSPHORUS, SERUM STAT 02/06/2022 9:00 Resu lts for this AM EDT procedure are i n the results section. HC MAGNESIUM, SERUM STAT 02/06/2022 9:00 Resul ts for this AM EDT procedure are i n the results section. HC CREATININE STAT 02/06/2022 9:00 Results for this AM EDT procedure are i n the results section. HC UREA NITROGEN, STAT 02/06/2022 9:00 Results for this SERUM AM EDT procedure are i n the results section. ELECTROLYTES PANEL STAT 02/06/2022 9:00 Result s for this AM EDT procedure are i n the results section. TRANSFUSE RED BLOOD STAT 02/06/2022 8:39 CELLS AM EDT TRANSFUSE RED BLOOD STAT 02/06/2022 7:56 CELLS AM EDT POCT GLUCOSE Routine 02/06/2022 7:47 Results for this AM EDT procedure are i n the results section. PREPARE RBC STAT 02/06/2022 7:40 Results for this AM EDT procedure are i n the results section. BASIC METABOLIC PANEL Routine 02/06/2022 7:40 Res ults for this (NON-FASTING) AM EDT procedure are in the results section. BLOOD GAS 2 VENOUS Routine 02/06/2022 6:19 Result s for this AM EDT procedure are i n the results section. FIBRINOGEN STAT 02/06/2022 6:16 Results for this AM EDT procedure are i n the results section. PROTHROMBIN TIME STAT 02/06/2022 6:16 Results for this AM EDT procedure are i n the results section. PLATELET COUNT STAT 02/06/2022 6:16 Results fo r this AM EDT procedure are i n the results section. HEMATOCRIT STAT 02/06/2022 6:16 Results for this AM EDT procedure are i n the results section. HEMOGLOBIN STAT 02/06/2022 6:16 Results for this AM EDT procedure are i n the results section. HC FIBRINOGEN TITER STAT 02/06/2022 6:16 AM EDT BLOOD GAS 2 ARTERIAL Routine 02/06/2022 6:14 Resu lts for this AM EDT procedure are i n the results section. HC BLOOD CULTURE- STAT 02/06/2022 6:00 Results for this AM EDT procedure are i n the results section. INSERT ARTERIAL LINE Routine 02/06/2022 5:58 Resu lts for this AM EDT procedure are i n the results section. TRANSFUSE RED BLOOD Routine 02/06/2022 4:44 CELLS AM EDT PREPARE RBC STAT 02/06/2022 4:20 Results for this AM EDT procedure are i n the results section. SCAN, PERIPHERAL BLOOD Routine 02/06/2022 3:48 Re sults for this AM EDT procedure are i n the results section. DIFFERENTIAL, Routine 02/06/2022 3:48 Results for this AUTOMATED AM EDT procedure are i n the results section. HEMOGRAM Routine 02/06/2022 3:48 Results for this AM EDT procedure are i n the results section. BLOOD GAS 2 ARTERIAL Routine 02/06/2022 3:48 Resu lts for this AM EDT procedure are i n the results section. HC CBC,PLT & AUTO DIFF Routine 02/06/2022 3:48 AM EDT PREPARE RBC STAT 02/06/2022 1:20 Results for this AM EDT procedure are i n the results section. FIBRINOGEN STAT 02/06/2022 12:50 Results for this AM EDT procedure are i n the results section. PROTHROMBIN TIME STAT 02/06/2022 12:50 Results for this AM EDT procedure are i n the results section. PLATELET COUNT STAT 02/06/2022 12:50 Results f or this AM EDT procedure are i n the results section. HEMATOCRIT STAT 02/06/2022 12:50 Results for this AM EDT procedure are i n the results section. HEMOGLOBIN STAT 02/06/2022 12:50 Results for this AM EDT procedure are i n the results section. BASIC METABOLIC PANEL Routine 02/06/2022 12:50 Re sults for this (NON-FASTING) AM EDT procedure are in the results section. HC PHOSPHORUS, SERUM Routine 02/06/2022 12:50 Res ults for this AM EDT procedure are i n the results section. HC MAGNESIUM, SERUM Routine 02/06/2022 12:50 Resu lts for this AM EDT procedure are i n the results section. HC HEMOGLOBIN, BLOOD STAT 02/06/2022 12:50 AM EDT TRANSFUSE THAWED STAT 02/06/2022 12:23 PLASMA AM EDT TRANSFUSE THAWED STAT 02/06/2022 12:09 PLASMA AM EDT LAB SCAN 02/06/2022 12:00 Results for this AM EDT procedure are i n the results section. TRANSFUSE THAWED STAT 02/05/2022 11:57 PLASMA PM EDT TRANSFUSE THAWED STAT 02/05/2022 11:15 PLASMA PM EDT BLOOD GAS 2 VENOUS Routine 02/05/2022 10:39 Resul ts for this PM EDT procedure are i n the results section. TRANSFUSE THAWED STAT 02/05/2022 10:30 PLASMA PM EDT HEPATIC FUNCTION PANEL STAT 02/05/2022 9:54 Re sults for this PM EDT procedure are i n the results section. BASIC METABOLIC PANEL STAT 02/05/2022 9:54 Res ults for this (NON-FASTING) PM EDT procedure are in the results section. TRANSFUSE RED BLOOD STAT 02/05/2022 9:30 CELLS PM EDT PREPARE THAWED PLASMA STAT 02/05/2022 9:10 Res ults for this PM EDT procedure are i n the results section. PREPARE RBC STAT 02/05/2022 8:50 Results for this PM EDT procedure are i n the results section. TRANSFUSE RED BLOOD STAT 02/05/2022 8:45 CELLS PM EDT PREPARE RBC STAT 02/05/2022 8:40 Results for this PM EDT procedure are i n the results section. HC PROTHROMBIN TIME STAT 02/05/2022 8:35 Resul ts for this PM EDT procedure are i n the results section. HC FIBRINOGEN TITER STAT 02/05/2022 8:35 Resul ts for this PM EDT procedure are i n the results section. TRANSFUSE RED BLOOD STAT 02/05/2022 8:00 CELLS PM EDT PREPARE RBC STAT 02/05/2022 7:55 Results for this PM EDT procedure are i n the results section. DIFFERENTIAL, Routine 02/05/2022 7:50 Results for this AUTOMATED PM EDT procedure are i n the results section. HEMOGRAM Routine 02/05/2022 7:50 Results for this PM EDT procedure are i n the results section. HC CBC,PLT & AUTO DIFF Routine 02/05/2022 7:50 PM EDT HC BLOOD CULTURE- STAT 02/05/2022 6:41 Results for this PM EDT procedure are i n the results section. HC HEMOGLOBIN, BLOOD STAT 02/05/2022 5:20 Resu lts for this PM EDT procedure are i n the results section. DRESSING CHANGE (VAC Routine 02/05/2022 3:35 ASSISTED) UP TO PM EDT 50SQ.CM DEBRIDEMENT SKIN, Routine 02/05/2022 3:11 SUBCU, MUSCLE, LOWER PM EDT EXTREMITY PREPARE RBC STAT 02/05/2022 2:20 Results for this PM EDT procedure are i n the results section. DRESSING CHANGE (VAC 02/05/2022 12:49 L thigh and L ASSISTED) UP TO PM EDT forearm wounds 50SQ.CM (WRVU 0.55) DRESSING CHANGE (VAC 02/05/2022 12:49 L thigh and L ASSISTED) UP TO PM EDT forearm wounds 50SQ.CM (WRVU 0.55) MODIFIER WOUND VAC 02/05/2022 12:49 L thigh and L PM EDT forearm wounds DEBRIDEMENT SKIN, 02/05/2022 12:49 L thigh and L SUBCU, MUSCLE, LOWER PM EDT forearm wounds EXTREMITY (WRVU 2.7) HC HEMOGLOBIN, BLOOD STAT 02/05/2022 9:30 Resu lts for this AM EDT procedure are i n the results section. TRANSFUSE RED BLOOD Routine 02/05/2022 5:07 CELLS AM EDT TRANSFUSE RED BLOOD Routine 02/05/2022 3:13 CELLS AM EDT PREPARE RBC Routine 02/05/2022 2:35 Results for this AM EDT procedure are i n the results section. TYPE AND SCREEN Routine 02/05/2022 1:50 Results f or this VALIDITY AM EDT procedure are i n the results section. ABORH RECHECK STATUS Routine 02/05/2022 1:50 Resu lts for this AM EDT procedure are i n the results section. ANTIBODY SCREEN Routine 02/05/2022 1:50 Results f or this AM EDT procedure are i n the results section. ABO/RH TYPING Routine 02/05/2022 1:50 Results for this AM EDT procedure are i n the results section. HC ANTIBODY Routine 02/05/2022 1:50 DETECTION,CAPTURE-R AM EDT DIFFERENTIAL, Routine 02/05/2022 12:56 Results fo r this AUTOMATED AM EDT procedure are i n the results section. HEMOGRAM Routine 02/05/2022 12:56 Results for this AM EDT procedure are i n the results section. HC CBC,PLT & AUTO DIFF Routine 02/05/2022 12:56 AM EDT BASIC METABOLIC PANEL Routine 02/05/2022 12:56 Re sults for this (NON-FASTING) AM EDT procedure are in the results section. HC PHOSPHORUS, SERUM Routine 02/05/2022 12:56 Res ults for this AM EDT procedure are i n the results section. HC MAGNESIUM, SERUM Routine 02/05/2022 12:56 Resu lts for this AM EDT procedure are i n the results section. BLOOD GAS 2 VENOUS Routine 02/04/2022 6:43 Result s for this PM EDT procedure are i n the results section. MODIFIER WOUND VAC 02/04/2022 5:00 L forearm, thigh, PM EDT leg fasciotomies s/p wound vac placement DEBRIDEMENT SKIN AND 02/04/2022 5:00 L forearm, thigh, SUBCU, UPPER EXTREMITY PM EDT leg fasciotomies s /p (WRVU 1.01) wound vac placement DEBRIDEMENT SKIN, 02/04/2022 5:00 L forearm, thigh, SUBCU, MUSCLE, LOWER PM EDT leg fasciotomies s/p EXTREMITY (WRVU 2.7) wound vac placement HC TRICHOMONAS GENE Routine 02/04/2022 4:20 Resul ts for this AMPLIFICATION PM EDT procedure are in the results section. HC CHLAMYDIA GENE AMP Routine 02/04/2022 4:20 Res ults for this PM EDT procedure are i n the results section. HC GC GENE AMP Routine 02/04/2022 4:20 Results fo r this PM EDT procedure are i n the results section. DEBRIDEMENT SKIN, Routine 02/04/2022 8:40 SUBCU, MUSCLE, LOWER AM EDT EXTREMITY DEBRIDEMENT SKIN AND Routine 02/04/2022 8:40 SUBCU, UPPER EXTREMITY AM EDT EKG 12-LEAD STAT 02/04/2022 6:17 Cardiac arrest Results fo r this AM EDT procedure are i n the results section. ALBUMIN LEVEL Routine 02/04/2022 4:21 Results for this AM EDT procedure are i n the results section. DIFFERENTIAL, Routine 02/04/2022 4:21 Results for this AUTOMATED AM EDT procedure are i n the results section. HEMOGRAM Routine 02/04/2022 4:21 Results for this AM EDT procedure are i n the results section. HC CBC,PLT & AUTO DIFF Routine 02/04/2022 4:21 AM EDT BASIC METABOLIC PANEL Routine 02/04/2022 4:21 Res ults for this (NON-FASTING) AM EDT procedure are in the results section. HC PHOSPHORUS, SERUM Routine 02/04/2022 4:21 Resu lts for this AM EDT procedure are i n the results section. HC MAGNESIUM, SERUM Routine 02/04/2022 4:21 Resul ts for this AM EDT procedure are i n the results section. POCT GLUCOSE Routine 02/03/2022 3:40 Results for this PM EDT procedure are i n the results section. TRANSFUSE RED BLOOD Routine 02/03/2022 3:34 CELLS PM EDT PREPARE RBC Routine 02/03/2022 3:20 Results for this PM EDT procedure are i n the results section. HC HEMOGRAM Routine 02/03/2022 2:15 Results for this PM EDT procedure are i n the results section. POCT GLUCOSE Routine 02/03/2022 11:42 Results for this AM EDT procedure are i n the results section. DUPLEX FOR DVT, ARM, Routine 02/03/2022 9:07 Cardiac arrest Re sults for this UNILAT AM EDT procedure are i n the results section. DUPLEX FOR DVT BILAT Routine 02/03/2022 9:07 Cardiac arrest Re sults for this LEGS AM EDT procedure are i n the results section. TRANSFUSE RED BLOOD Routine 02/03/2022 8:29 CELLS AM EDT POCT GLUCOSE Routine 02/03/2022 8:17 Results for this AM EDT procedure are i n the results section. PREPARE RBC Routine 02/03/2022 7:51 Results for this AM EDT procedure are i n the results section. PREPARE RBC Routine 02/03/2022 7:45 Results for this AM EDT procedure are i n the results section. HC HEMOGLOBIN, BLOOD Routine 02/03/2022 6:47 Resu lts for this AM EDT procedure are i n the results section. SCAN, PERIPHERAL BLOOD Routine 02/03/2022 4:55 Re sults for this AM EDT procedure are i n the results section. DIFFERENTIAL, Routine 02/03/2022 4:55 Results for this AUTOMATED AM EDT procedure are i n the results section. HEMOGRAM Routine 02/03/2022 4:55 Results for this AM EDT procedure are i n the results section. HC VITAMIN B12 SERUM Routine 02/03/2022 4:55 Resu lts for this AM EDT procedure are i n the results section. HC FOLATE, SERUM Routine 02/03/2022 4:55 Results for this AM EDT procedure are i n the results section. HC CBC,PLT & AUTO DIFF Routine 02/03/2022 4:55 AM EDT BASIC METABOLIC PANEL Routine 02/03/2022 4:55 Res ults for this (NON-FASTING) AM EDT procedure are in the results section. HC PHOSPHORUS, SERUM Routine 02/03/2022 4:55 Resu lts for this AM EDT procedure are i n the results section. HC MAGNESIUM, SERUM Routine 02/03/2022 4:55 Resul ts for this AM EDT procedure are i n the results section. POCT GLUCOSE Routine 02/02/2022 4:08 Results for this PM EDT procedure are i n the results section. MODIFIER WOUND VAC 02/02/2022 1:40 fasciotomies w/ vac PM EDT DEBRIDEMENT SKIN, 02/02/2022 1:40 fasciotomies w/ vac SUBCU, MUSCLE, BONE, PM EDT LOWER EXTREMITY (WRVU 4.1) DEBRIDEMENT SKIN, 02/02/2022 1:40 fasciotomies w/ vac SUBCU, MUSCLE, BONE PM EDT UPPER EXTREMITY (WRVU 4.1) DEBRIDEMENT SKIN, Routine 02/02/2022 12:54 SUBCU, MUSCLE, BONE, PM EDT LOWER EXTREMITY DEBRIDEMENT SKIN, Routine 02/02/2022 12:54 SUBCU, MUSCLE, BONE PM EDT UPPER EXTREMITY HC HEMOGRAM Routine 02/02/2022 12:40 Results for this PM EDT procedure are i n the results section. POCT GLUCOSE Routine 02/02/2022 7:57 Results for this AM EDT procedure are i n the results section. IRON AND TIBC Routine 02/02/2022 2:29 Results for this AM EDT procedure are i n the results section. DIFFERENTIAL, Routine 02/02/2022 2:29 Results for this AUTOMATED AM EDT procedure are i n the results section. HEMOGRAM Routine 02/02/2022 2:29 Results for this AM EDT procedure are i n the results section. HC CBC,PLT & AUTO DIFF Routine 02/02/2022 2:29 AM EDT BASIC METABOLIC PANEL Routine 02/02/2022 2:29 Res ults for this (NON-FASTING) AM EDT procedure are in the results section. HC PHOSPHORUS, SERUM Routine 02/02/2022 2:29 Resu lts for this AM EDT procedure are i n the results section. HC MAGNESIUM, SERUM Routine 02/02/2022 2:29 Resul ts for this AM EDT procedure are i n the results section. HC HEMOGRAM Routine 02/01/2022 6:15 Results for this PM EDT procedure are i n the results section. BASIC METABOLIC PANEL Routine 02/01/2022 6:15 Res ults for this (NON-FASTING) PM EDT procedure are in the results section. TRANSFUSE RED BLOOD Routine 02/01/2022 2:08 CELLS PM EDT HC C DIFFICILE PCR Routine 02/01/2022 1:55 Result s for this PM EDT procedure are i n the results section. TYPE AND SCREEN Routine 02/01/2022 12:45 Results for this VALIDITY PM EDT procedure are i n the results section. ABORH RECHECK STATUS Routine 02/01/2022 12:45 Res ults for this PM EDT procedure are i n the results section. ANTIBODY SCREEN Routine 02/01/2022 12:45 Results for this PM EDT procedure are i n the results section. ABO/RH TYPING Routine 02/01/2022 12:45 Results fo r this PM EDT procedure are i n the results section. HC ABO-MICROTITER Routine 02/01/2022 12:45 PM EDT PREPARE RBC Routine 02/01/2022 12:05 Results for this PM EDT procedure are i n the results section. BASIC METABOLIC PANEL Routine 02/01/2022 11:42 Re sults for this (NON-FASTING) AM EDT procedure are in the results section. HC HEMOGRAM Routine 02/01/2022 11:42 Results for this AM EDT procedure are i n the results section. POCT GLUCOSE Routine 02/01/2022 10:42 Results for this AM EDT procedure are i n the results section. HC BLOOD CULTURE- STAT 02/01/2022 6:35 Results for this AM EDT procedure are i n the results section. HC BLOOD CULTURE- STAT 02/01/2022 6:25 Results for this AM EDT procedure are i n the results section. HC HEMOGRAM STAT 02/01/2022 4:00 Results for this AM EDT procedure are i n the results section. HC PH DETERMINATION, STAT 02/01/2022 4:00 Resu lts for this ARTERIAL AM EDT procedure are i n the results section. DIFFERENTIAL, Routine 02/01/2022 1:02 Results for this AUTOMATED AM EDT procedure are i n the results section. HEMOGRAM Routine 02/01/2022 1:02 Results for this AM EDT procedure are i n the results section. HC PH DETERMINATION, STAT 02/01/2022 1:02 Resu lts for this ARTERIAL AM EDT procedure are i n the results section. HC CBC,PLT & AUTO DIFF Routine 02/01/2022 1:02 AM EDT BASIC METABOLIC PANEL Routine 02/01/2022 1:02 Res ults for this (NON-FASTING) AM EDT procedure are in the results section. HC PHOSPHORUS, SERUM Routine 02/01/2022 1:02 Resu lts for this AM EDT procedure are i n the results section. HC MAGNESIUM, SERUM Routine 02/01/2022 1:02 Resul ts for this AM EDT procedure are i n the results section. HC PH DETERMINATION, STAT 01/31/2022 10:30 Res ults for this ARTERIAL PM EDT procedure are i n the results section. POCT GLUCOSE Routine 01/31/2022 7:39 Results for this PM EDT procedure are i n the results section. HC PH DETERMINATION, STAT 01/31/2022 7:36 Resu lts for this ARTERIAL PM EDT procedure are i n the results section. ELECTROLYTES PANEL STAT 01/31/2022 4:54 Result s for this PM EDT procedure are i n the results section. DEBRIDEMENT SKIN, Routine 01/31/2022 11:40 SUBCU, MUSCLE, BONE AM EDT UPPER EXTREMITY DEBRIDEMENT SKIN, 01/31/2022 10:27 LUE + LLE I&D SUBCU, MUSCLE, BONE AM EDT UPPER EXTREMITY (WRVU 4.1) MODIFIER WOUND VAC 01/31/2022 10:27 LUE + LLE I&D AM EDT DEBRIDEMENT SKIN, 01/31/2022 10:27 LUE + LLE I&D SUBCU, MUSCLE, BONE, AM EDT LOWER EXTREMITY (WRVU 4.1) POCT GLUCOSE Routine 01/31/2022 10:03 Results for this AM EDT procedure are i n the results section. DEBRIDEMENT SKIN, Routine 01/31/2022 9:20 SUBCU, MUSCLE, BONE, AM EDT LOWER EXTREMITY HC PARTIAL STAT 01/31/2022 8:05 Results for this THROMBOPLASTIN TIME AM EDT procedur e are in the results section. ELECTROLYTES PANEL STAT 01/31/2022 6:10 Result s for this AM EDT procedure are i n the results section. POCT GLUCOSE Routine 01/31/2022 4:16 Results for this AM EDT procedure are i n the results section. BLOOD GAS 2 VENOUS Routine 01/31/2022 12:43 Resul ts for this AM EDT procedure are i n the results section. DIFFERENTIAL, Routine 01/31/2022 12:42 Results fo r this AUTOMATED AM EDT procedure are i n the results section. HEMOGRAM Routine 01/31/2022 12:42 Results for this AM EDT procedure are i n the results section. HC CREATININE STAT 01/31/2022 12:42 Results fo r this AM EDT procedure are i n the results section. HC UREA NITROGEN, STAT 01/31/2022 12:42 Result s for this SERUM AM EDT procedure are i n the results section. ELECTROLYTES PANEL STAT 01/31/2022 12:42 Resul ts for this AM EDT procedure are i n the results section. HC CBC,PLT & AUTO DIFF Routine 01/31/2022 12:42 AM EDT HC PH DETERMINATION, STAT 01/30/2022 8:17 Resu lts for this ARTERIAL PM EDT procedure are i n the results section. HC PARTIAL STAT 01/30/2022 8:17 Results for this THROMBOPLASTIN TIME PM EDT procedur e are in the results section. POCT GLUCOSE Routine 01/30/2022 8:00 Results for this PM EDT procedure are i n the results section. CT CHEST ABDOMEN STAT 01/30/2022 12:50 Results for this PELVIS W CONTRAST PM EDT procedure are in (GENERIC) the results section. ELECTROLYTES PANEL Timed 01/30/2022 12:23 Resul ts for this PM EDT procedure are i n the results section. POCT GLUCOSE Routine 01/30/2022 10:42 Results for this AM EDT procedure are i n the results section. EKG 12-LEAD STAT 01/30/2022 9:18 Chest pain on Results for this AM EDT breathing procedure are i n the results section. POCT GLUCOSE Routine 01/30/2022 4:21 Results for this AM EDT procedure are i n the results section. SCAN, PERIPHERAL BLOOD Routine 01/30/2022 4:10 Re sults for this AM EDT procedure are i n the results section. DIFFERENTIAL, Routine 01/30/2022 4:10 Results for this AUTOMATED AM EDT procedure are i n the results section. HEMOGRAM Routine 01/30/2022 4:10 Results for this AM EDT procedure are i n the results section. BLOOD GAS VENOUS ([facility]) STAT 01/30/2022 4:10 Re sults for this AM EDT procedure are i n the results section. HC CREATINE Routine 01/30/2022 4:10 Results for this PHOSPHOKINASE, SERUM AM EDT procedu re are in the results section. HC CBC,PLT & AUTO DIFF Routine 01/30/2022 4:10 AM EDT BASIC METABOLIC PANEL Routine 01/30/2022 4:10 Res ults for this (NON-FASTING) AM EDT procedure are in the results section. HC PHOSPHORUS, SERUM Routine 01/30/2022 4:10 Resu lts for this AM EDT procedure are i n the results section. HC MAGNESIUM, SERUM Routine 01/30/2022 4:10 Resul ts for this AM EDT procedure are i n the results section. POCT GLUCOSE Routine 01/30/2022 12:07 Results for this AM EDT procedure are i n the results section. POCT GLUCOSE Routine 01/29/2022 9:40 Results for this PM EDT procedure are i n the results section. HC PHOSPHORUS, SERUM STAT 01/29/2022 9:35 Resu lts for this PM EDT procedure are i n the results section. MODIFIER WOUND VAC 01/29/2022 2:55 L forear PM EDT (volar/dorsal) L thigh/buttock L leg compartment syndrome I+D DEBRIDEMENT SKIN, 01/29/2022 2:55 L forear SUBCU, MUSCLE, BONE, PM EDT (volar/dorsal) L LOWER EXTREMITY (WRVU thigh/buttock L leg 4.1) compartment syndrome I+D SCAN, PERIPHERAL BLOOD Routine 01/29/2022 2:55 Re sults for this AM EDT procedure are i n the results section. DIFFERENTIAL, Routine 01/29/2022 2:55 Results for this AUTOMATED AM EDT procedure are i n the results section. HEMOGRAM Routine 01/29/2022 2:55 Results for this AM EDT procedure are i n the results section. HC CREATINE Routine 01/29/2022 2:55 Results for this PHOSPHOKINASE, SERUM AM EDT procedu re are in the results section. HC CBC,PLT & AUTO DIFF Routine 01/29/2022 2:55 AM EDT BASIC METABOLIC PANEL Routine 01/29/2022 2:55 Res ults for this (NON-FASTING) AM EDT procedure are in the results section. HC PHOSPHORUS, SERUM Routine 01/29/2022 2:55 Resu lts for this AM EDT procedure are i n the results section. HC MAGNESIUM, SERUM Routine 01/29/2022 2:55 Resul ts for this AM EDT procedure are i n the results section. BLOOD GAS VENOUS ([facility]) Routine 01/28/2022 1:25 Re sults for this PM EDT procedure are i n the results section. DEBRIDEMENT SKIN, Routine 01/28/2022 6:27 SUBCU, MUSCLE, BONE, AM EDT LOWER EXTREMITY BLOOD GAS VENOUS ([facility]) Routine 01/28/2022 6:20 Re sults for this AM EDT procedure are i n the results section. HC CREATINE Routine 01/28/2022 6:20 Results for this PHOSPHOKINASE, SERUM AM EDT procedu re are in the results section. HC URINALYSIS ROUTINE Routine 01/28/2022 6:00 Res ults for this AM EDT procedure are i n the results section. HC BLOOD CULTURE- STAT 01/28/2022 3:45 Results for this AM EDT procedure are i n the results section. SCAN, PERIPHERAL BLOOD Routine 01/28/2022 12:18 R esults for this AM EDT procedure are i n the results section. BLOOD GAS VENOUS ([facility]) STAT 01/28/2022 12:18 R esults for this AM EDT procedure are i n the results section. DIFFERENTIAL, Routine 01/28/2022 12:18 Results fo r this AUTOMATED AM EDT procedure are i n the results section. HEMOGRAM Routine 01/28/2022 12:18 Results for this AM EDT procedure are i n the results section. HEPATIC FUNCTION PANEL STAT 01/28/2022 12:18 R esults for this AM EDT procedure are i n the results section. HC CBC,PLT & AUTO DIFF Routine 01/28/2022 12:18 AM EDT BASIC METABOLIC PANEL Routine 01/28/2022 12:18 Re sults for this (NON-FASTING) AM EDT procedure are in the results section. HC PHOSPHORUS, SERUM Routine 01/28/2022 12:18 Res ults for this AM EDT procedure are i n the results section. HC MAGNESIUM, SERUM Routine 01/28/2022 12:18 Resu lts for this AM EDT procedure are i n the results section. HC CREATINE Routine 01/28/2022 12:18 Results for this PHOSPHOKINASE, SERUM AM EDT procedu re are in the results section. POCT GLUCOSE Routine 01/27/2022 8:29 Results for this PM EDT procedure are i n the results section. BLOOD GAS VENOUS ([facility]) Routine 01/27/2022 6:06 Re sults for this PM EDT procedure are i n the results section. HC CREATINE Routine 01/27/2022 5:55 Results for this PHOSPHOKINASE, SERUM PM EDT procedu re are in the results section. POCT GLUCOSE Routine 01/27/2022 4:28 Results for this PM EDT procedure are i n the results section. SECONDARY CLOS Routine 01/27/2022 4:23 SURGICAL WOUND OR PM EDT DEHISC, EXTEN/COMPLICAT, UP EXTR DEBRIDEMENT SKIN, Routine 01/27/2022 4:23 SUBCU, MUSCLE, LOWER PM EDT EXTREMITY DEBRIDEMENT SKIN, Routine 01/27/2022 4:23 SUBCU, MUSCLE, UPPER PM EDT EXTREMITY POCT GLUCOSE Routine 01/27/2022 12:13 Results for this PM EDT procedure are i n the results section. BLOOD GAS 2 VENOUS Routine 01/27/2022 12:11 Resul ts for this PM EDT procedure are i n the results section. HC CREATININE STAT 01/27/2022 12:05 Results fo r this PM EDT procedure are i n the results section. SCAN, PERIPHERAL BLOOD Routine 01/27/2022 10:22 R esults for this AM EDT procedure are i n the results section. DIFFERENTIAL, Routine 01/27/2022 10:22 Results fo r this AUTOMATED AM EDT procedure are i n the results section. HEMOGRAM Routine 01/27/2022 10:22 Results for this AM EDT procedure are i n the results section. HC CBC,PLT & AUTO DIFF Routine 01/27/2022 10:22 AM EDT POCT GLUCOSE Routine 01/27/2022 8:30 Results for this AM EDT procedure are i n the results section. BLOOD GAS VENOUS ([facility]) Routine 01/27/2022 5:36 Re sults for this AM EDT procedure are i n the results section. HC CREATINE Routine 01/27/2022 5:36 Results for this PHOSPHOKINASE, SERUM AM EDT procedu re are in the results section. BLOOD GAS VENOUS ([facility]) STAT 01/27/2022 1:25 Re sults for this AM EDT procedure are i n the results section. HC CREATINE Routine 01/27/2022 1:25 Results for this PHOSPHOKINASE, SERUM AM EDT procedu re are in the results section. HEPATIC FUNCTION PANEL STAT 01/27/2022 1:25 Re sults for this AM EDT procedure are i n the results section. BASIC METABOLIC PANEL Routine 01/27/2022 1:25 Res ults for this (NON-FASTING) AM EDT procedure are in the results section. HC PHOSPHORUS, SERUM Routine 01/27/2022 1:25 Resu lts for this AM EDT procedure are i n the results section. HC MAGNESIUM, SERUM Routine 01/27/2022 1:25 Resul ts for this AM EDT procedure are i n the results section. EXTUBATE Routine 01/27/2022 12:06 AM EDT POCT GLUCOSE Routine 01/26/2022 8:59 Results for this PM EDT procedure are i n the results section. BLOOD GAS VENOUS ([facility]) STAT 01/26/2022 6:19 Re sults for this PM EDT procedure are i n the results section. HC CREATINE Routine 01/26/2022 6:19 Results for this PHOSPHOKINASE, SERUM PM EDT procedu re are in the results section. POCT GLUCOSE Routine 01/26/2022 6:03 Results for this PM EDT procedure are i n the results section. POCT GLUCOSE Routine 01/26/2022 4:31 Results for this PM EDT procedure are i n the results section. SECONDARY CLOSURE 01/26/2022 3:41 compartment syndrome SURGICAL WOUND OR PM EDT Left leg, DEHISCENCE, EXTENSIVE thigh/buttock, OR COMPLICATED, UPPER forearm s/p I+D Wva c EXTREMITY (WRVU 12.04) DEBRIDEMENT SKIN, 01/26/2022 3:41 compartment syndrome SUBCU, MUSCLE, UPPER PM EDT Left leg, EXTREMITY (WRVU 2.7) thigh/buttock, forearm s/p I+D Wvac DEBRIDEMENT SKIN, 01/26/2022 3:41 compartment syndrome SUBCU, MUSCLE, LOWER PM EDT Left leg, EXTREMITY (WRVU 2.7) thigh/buttock, forearm s/p I+D Wvac MODIFIER WOUND VAC 01/26/2022 3:41 compartment syndrom e PM EDT Left leg, thigh/buttock, forearm s/p I+D Wvac POCT GLUCOSE Routine 01/26/2022 2:00 Results for this PM EDT procedure are i n the results section. BLOOD GAS 2 VENOUS Routine 01/26/2022 12:23 Resul ts for this PM EDT procedure are i n the results section. HC CREATINE Routine 01/26/2022 12:22 Results for this PHOSPHOKINASE, SERUM PM EDT procedu re are in the results section. POCT GLUCOSE Routine 01/26/2022 12:05 Results for this PM EDT procedure are i n the results section. POCT GLUCOSE Routine 01/26/2022 11:08 Results for this AM EDT procedure are i n the results section. POCT GLUCOSE Routine 01/26/2022 10:15 Results for this AM EDT procedure are i n the results section. POCT GLUCOSE Routine 01/26/2022 8:58 Results for this AM EDT procedure are i n the results section. POCT GLUCOSE Routine 01/26/2022 8:20 Results for this AM EDT procedure are i n the results section. HC CREATINE Routine 01/26/2022 6:15 Results for this PHOSPHOKINASE, SERUM AM EDT procedu re are in the results section. BLOOD GAS 2 VENOUS Routine 01/26/2022 5:59 Result s for this AM EDT procedure are i n the results section. POCT GLUCOSE Routine 01/26/2022 5:09 Results for this AM EDT procedure are i n the results section. POCT GLUCOSE Routine 01/26/2022 4:21 Results for this AM EDT procedure are i n the results section. BLOOD GAS 2 VENOUS Routine 01/26/2022 12:26 Resul ts for this AM EDT procedure are i n the results section. SCAN, PERIPHERAL BLOOD Routine 01/26/2022 12:20 R esults for this AM EDT procedure are i n the results section. DIFFERENTIAL, Routine 01/26/2022 12:20 Results fo r this AUTOMATED AM EDT procedure are i n the results section. HEMOGRAM Routine 01/26/2022 12:20 Results for this AM EDT procedure are i n the results section. HC TRIGLYCERIDES Routine 01/26/2022 12:20 Results for this AM EDT procedure are i n the results section. HEPATIC FUNCTION PANEL STAT 01/26/2022 12:20 R esults for this AM EDT procedure are i n the results section. HC CBC,PLT & AUTO DIFF Routine 01/26/2022 12:20 AM EDT BASIC METABOLIC PANEL Routine 01/26/2022 12:20 Re sults for this (NON-FASTING) AM EDT procedure are in the results section. HC PHOSPHORUS, SERUM Routine 01/26/2022 12:20 Res ults for this AM EDT procedure are i n the results section. HC MAGNESIUM, SERUM Routine 01/26/2022 12:20 Resu lts for this AM EDT procedure are i n the results section. POCT GLUCOSE Routine 01/26/2022 12:01 Results for this AM EDT procedure are i n the results section. POCT GLUCOSE Routine 01/25/2022 8:08 Results for this PM EDT procedure are i n the results section. BLOOD GAS 2 VENOUS Routine 01/25/2022 6:07 Result s for this PM EDT procedure are i n the results section. HC CREATINE Routine 01/25/2022 6:00 Results for this PHOSPHOKINASE, SERUM PM EDT procedu re are in the results section. POCT GLUCOSE Routine 01/25/2022 4:09 Results for this PM EDT procedure are i n the results section. BLOOD GAS 2 VENOUS Routine 01/25/2022 11:59 Resul ts for this AM EDT procedure are i n the results section. POCT GLUCOSE Routine 01/25/2022 11:56 Results for this AM EDT procedure are i n the results section. HC PHOSPHORUS, SERUM STAT 01/25/2022 11:55 Res ults for this AM EDT procedure are i n the results section. HC MAGNESIUM, SERUM STAT 01/25/2022 11:55 Resu lts for this AM EDT procedure are i n the results section. HC CREATININE STAT 01/25/2022 11:55 Results fo r this AM EDT procedure are i n the results section. HC UREA NITROGEN, STAT 01/25/2022 11:55 Result s for this SERUM AM EDT procedure are i n the results section. ELECTROLYTES PANEL STAT 01/25/2022 11:55 Resul ts for this AM EDT procedure are i n the results section. HC CREATINE Routine 01/25/2022 11:55 Results for this PHOSPHOKINASE, SERUM AM EDT procedu re are in the results section. POCT GLUCOSE Routine 01/25/2022 8:31 Results for this AM EDT procedure are i n the results section. HC CREATINE Routine 01/25/2022 8:20 Results for this PHOSPHOKINASE, SERUM AM EDT procedu re are in the results section. BLOOD GAS 2 ARTERIAL Routine 01/25/2022 6:22 Resu lts for this AM EDT procedure are i n the results section. POCT GLUCOSE Routine 01/25/2022 3:49 Results for this AM EDT procedure are i n the results section. SCAN, PERIPHERAL BLOOD Routine 01/25/2022 12:30 R esults for this AM EDT procedure are i n the results section. DIFFERENTIAL, Routine 01/25/2022 12:30 Results fo r this AUTOMATED AM EDT procedure are i n the results section. HEMOGRAM Routine 01/25/2022 12:30 Results for this AM EDT procedure are i n the results section. HC CREATINE Routine 01/25/2022 12:30 Results for this PHOSPHOKINASE, SERUM AM EDT procedu re are in the results section. HEPATIC FUNCTION PANEL STAT 01/25/2022 12:30 R esults for this AM EDT procedure are i n the results section. HC CBC,PLT & AUTO DIFF Routine 01/25/2022 12:30 AM EDT BASIC METABOLIC PANEL Routine 01/25/2022 12:30 Re sults for this (NON-FASTING) AM EDT procedure are in the results section. HC PHOSPHORUS, SERUM Routine 01/25/2022 12:30 Res ults for this AM EDT procedure are i n the results section. HC MAGNESIUM, SERUM Routine 01/25/2022 12:30 Resu lts for this AM EDT procedure are i n the results section. POCT GLUCOSE Routine 01/25/2022 12:19 Results for this AM EDT procedure are i n the results section. CT CAROTIDS W CONTRAST Routine 01/24/2022 11:32 R esults for this PM EDT procedure are i n the results section. CT [place] [employer] [employer] W Routine 01/24/2022 11:32 Re sults for this CONTRAST PM EDT procedure are i n the results section. POCT GLUCOSE Routine 01/24/2022 8:11 Results for this PM EDT procedure are i n the results section. HC CREATINE Routine 01/24/2022 6:20 Results for this PHOSPHOKINASE, SERUM PM EDT procedu re are in the results section. MRI BRAIN WO CONTRAST STAT 01/24/2022 4:27 Res ults for this PM EDT procedure are i n the results section. HC MRSA DETECTION BY Routine 01/24/2022 1:10 Resu lts for this PCR PM EDT procedure are i n the results section. HC CREATINE Routine 01/24/2022 12:14 Results for this PHOSPHOKINASE, SERUM PM EDT procedu re are in the results section. POCT GLUCOSE Routine 01/24/2022 12:13 Results for this PM EDT procedure are i n the results section. ECHOCARDIOGRAM Routine 01/24/2022 9:30 Cardiac arrest Results for this COMPLETE W CONTRAST AM EDT procedur e are in the results section. POCT GLUCOSE Routine 01/24/2022 8:39 Results for this AM EDT procedure are i n the results section. HC CREATINE Routine 01/24/2022 6:25 Results for this PHOSPHOKINASE, SERUM AM EDT procedu re are in the results section. ELECTROLYTES PANEL STAT 01/24/2022 6:25 Result s for this AM EDT procedure are i n the results section. BLOOD GAS ARTERIAL Routine 01/24/2022 6:20 Result s for this ([facility]) AM EDT procedure are i n the results section. POCT GLUCOSE Routine 01/24/2022 4:06 Results for this AM EDT procedure are i n the results section. DIFFERENTIAL, Routine 01/24/2022 12:18 Results fo r this AUTOMATED AM EDT procedure are i n the results section. HEMOGRAM Routine 01/24/2022 12:18 Results for this AM EDT procedure are i n the results section. HC CBC,PLT & AUTO DIFF Routine 01/24/2022 12:18 AM EDT BASIC METABOLIC PANEL Routine 01/24/2022 12:18 Re sults for this (NON-FASTING) AM EDT procedure are in the results section. HC PHOSPHORUS, SERUM Routine 01/24/2022 12:18 Res ults for this AM EDT procedure are i n the results section. HC MAGNESIUM, SERUM Routine 01/24/2022 12:18 Resu lts for this AM EDT procedure are i n the results section. HEPATIC FUNCTION PANEL STAT 01/24/2022 12:18 R esults for this AM EDT procedure are i n the results section. ELECTROLYTES PANEL Routine 01/24/2022 12:18 Resul ts for this AM EDT procedure are i n the results section. HC CREATINE Routine 01/24/2022 12:18 Results for this PHOSPHOKINASE, SERUM AM EDT procedu re are in the results section. POCT GLUCOSE Routine 01/24/2022 12:17 Results for this AM EDT procedure are i n the results section. BLOOD GAS 2 ARTERIAL Routine 01/24/2022 12:16 Res ults for this AM EDT procedure are i n the results section. POCT GLUCOSE Routine 01/23/2022 8:20 Results for this PM EDT procedure are i n the results section. BLOOD GAS ARTERIAL Routine 01/23/2022 6:10 Result s for this ([facility]) PM EDT procedure are i n the results section. HC HIV SCREEN, 4TH Routine 01/23/2022 6:10 Result s for this GENERATION PM EDT procedure are i n the results section. HC HEPATITIS A, TOTAL Routine 01/23/2022 6:10 Res ults for this PM EDT procedure are i n the results section. HC TROPONIN T STAT 01/23/2022 6:10 Results for this PM EDT procedure are i n the results section. HC CREATINE Routine 01/23/2022 6:10 Results for this PHOSPHOKINASE, SERUM PM EDT procedu re are in the results section. ELECTROLYTES PANEL Routine 01/23/2022 6:10 Result s for this PM EDT procedure are i n the results section. HC PHOSPHORUS, SERUM STAT 01/23/2022 6:10 Resu lts for this PM EDT procedure are i n the results section. HC MAGNESIUM, SERUM STAT 01/23/2022 6:10 Resul ts for this PM EDT procedure are i n the results section. HC CREATININE STAT 01/23/2022 6:10 Results for this PM EDT procedure are i n the results section. XR CHEST ONE VIEW STAT 01/23/2022 4:54 Results for this PM EDT procedure are i n the results section. HC PH DETERMINATION, STAT 01/23/2022 3:12 Resu lts for this ARTERIAL PM EDT procedure are i n the results section. POCT GLUCOSE Routine 01/23/2022 3:03 Results for this PM EDT procedure are i n the results section. XR TIBIA FIBULA LEFT STAT 01/23/2022 2:04 Resu lts for this PM EDT procedure are i n the results section. XR FEMUR 2 VIEWS LEFT STAT 01/23/2022 2:04 Res ults for this PM EDT procedure are i n the results section. HC MRSA DETECTION BY Routine 01/23/2022 12:47 Res ults for this PCR PM EDT procedure are i n the results section. BLOOD GAS 2 ARTERIAL Routine 01/23/2022 11:56 Res ults for this AM EDT procedure are i n the results section. HC HEPATITIS B SURFACE Routine 01/23/2022 11:50 R esults for this AG AM EDT procedure are i n the results section. HC HEPATITIS B Routine 01/23/2022 11:50 Results f or this QUANTIFICATION AM EDT procedure are in the results section. HC HEPATITIS B CORE AB Routine 01/23/2022 11:50 R esults for this AM EDT procedure are i n the results section. HC GRAM STAIN FOR STAT 01/23/2022 11:50 Result s for this BACTERIA AM EDT procedure are i n the results section. HC CREATININE STAT 01/23/2022 11:30 Results fo r this AM EDT procedure are i n the results section. HC PHOSPHORUS, SERUM STAT 01/23/2022 11:30 Res ults for this AM EDT procedure are i n the results section. HC MAGNESIUM, SERUM STAT 01/23/2022 11:30 Resu lts for this AM EDT procedure are i n the results section. ELECTROLYTES PANEL Routine 01/23/2022 11:30 Resul ts for this AM EDT procedure are i n the results section. HC CREATINE Routine 01/23/2022 11:30 Results for this PHOSPHOKINASE, SERUM AM EDT procedu re are in the results section. HC TROPONIN T STAT 01/23/2022 11:30 Results fo r this AM EDT procedure are i n the results section. POCT GLUCOSE Routine 01/23/2022 11:01 Results for this AM EDT procedure are i n the results section. FASCIOTOMY, LOWER LEG, Routine 01/23/2022 10:57 ALL COMPARTMENTS AM EDT FASCIOTOMY; FOREARM Routine 01/23/2022 10:57 AND\OR WRIST,FLEXOR & AM EDT EXTENS. COMP MEDIAN NERVE Routine 01/23/2022 9:24 DECOMPRESSION (CARPAL AM EDT TUNNEL RELEASE) BLOOD GAS 2 ARTERIAL Routine 01/23/2022 9:18 Resu lts for this AM EDT procedure are i n the results section. BLOOD GAS 2 ARTERIAL Routine 01/23/2022 8:37 Resu lts for this AM EDT procedure are i n the results section. FASCIOTOMY,THIGH OR Routine 01/23/2022 8:27 HIPFOR COMPARTMENT AM EDT SYNDROME BLOOD GAS 2 ARTERIAL Routine 01/23/2022 7:59 Resu lts for this AM EDT procedure are i n the results section. FASCIOTOMY; FOREARM 01/23/2022 7:49 Left forearm AND\OR WRIST, FLEXOR & AM EDT compartment syndro me EXTENS. COMP (WRVU 10.79) FASCIOTOMY, LOWER LEG, 01/23/2022 7:49 Left forearm ALL COMPARTMENTS (WRVU AM EDT compartment syndro me 7.82) MODIFIER WOUND VAC 01/23/2022 7:49 Left forearm AM EDT compartment syndrome MEDIAN NERVE 01/23/2022 7:49 Left forearm DECOMPRESSION (CARPAL AM EDT compartment syndrom e TUNNEL RELEASE) (WRVU 4.97) @FASCIOTOMY,THIGH OR 01/23/2022 7:49 Left forearm HIP FOR COMPARTMENT AM EDT compartment syndrome SYNDROME (WRVU 12.89) POCT GLUCOSE Routine 01/23/2022 7:28 Results for this AM EDT procedure are i n the results section. BLOOD GAS ARTERIAL Routine 01/23/2022 7:21 Result s for this ([facility]) AM EDT procedure are i n the results section. HC PHOSPHORUS, SERUM STAT 01/23/2022 7:20 Resu lts for this AM EDT procedure are i n the results section. HC MAGNESIUM, SERUM STAT 01/23/2022 7:20 Resul ts for this AM EDT procedure are i n the results section. HC CREATININE STAT 01/23/2022 7:20 Results for this AM EDT procedure are i n the results section. ELECTROLYTES PANEL STAT 01/23/2022 7:20 Result s for this AM EDT procedure are i n the results section. XR HAND MIN 3 VIEWS Routine 01/23/2022 6:32 Resul ts for this LEFT AM EDT procedure are i n the results section. XR CHEST ONE VIEW Routine 01/23/2022 6:32 Results for this AM EDT procedure are i n the results section. XR FOREARM LEFT STAT 01/23/2022 6:32 Results f or this AM EDT procedure are i n the results section. CENTRAL LINE Routine 01/23/2022 6:25 Results for this AM EDT procedure are i n the results section. ELECTROLYTES PANEL Routine 01/23/2022 6:00 Result s for this AM EDT procedure are i n the results section. HC CREATINE Routine 01/23/2022 6:00 Results for this PHOSPHOKINASE, SERUM AM EDT procedu re are in the results section. HC TROPONIN T STAT 01/23/2022 6:00 Results for this AM EDT procedure are i n the results section. HC BLOOD CULTURE- STAT 01/23/2022 6:00 Results for this AM EDT procedure are i n the results section. POCT GLUCOSE Routine 01/23/2022 4:58 Results for this AM EDT procedure are i n the results section. HC HEPATITIS B SURFACE Routine 01/23/2022 4:49 Re sults for this AB AM EDT procedure are i n the results section. HC HEPATITIS C Routine 01/23/2022 4:49 Results fo r this ANTIBODY AM EDT procedure are i n the results section. HC POTASSIUM STAT 01/23/2022 4:49 Results for this AM EDT procedure are i n the results section. HC HEMOGRAM Routine 01/23/2022 4:49 Results for this AM EDT procedure are i n the results section. CT UPPER EXTREMITY W STAT 01/23/2022 3:58 Resu lts for this CONTRAST LEFT AM EDT procedure are in the results section. CT CHEST WO CONTRAST STAT 01/23/2022 3:58 Resu lts for this (GENERIC) AM EDT procedure are i n the results section. CT LOWER EXTREMITY WO Routine 01/23/2022 3:58 Res ults for this CONTRAST LEFT AM EDT procedure are in the results section. CT HEAD WO CONTRAST STAT 01/23/2022 3:58 Resul ts for this (GENERIC) AM EDT procedure are i n the results section. INSERT ARTERIAL LINE Routine 01/23/2022 2:16 Resu lts for this AM EDT procedure are i n the results section. XR ABDOMEN 1 VIEW Routine 01/23/2022 2:10 Results for this AM EDT procedure are i n the results section. XR CHEST ONE VIEW STAT 01/23/2022 2:10 Results for this AM EDT procedure are i n the results section. HC PARTIAL Routine 01/23/2022 1:55 Results for this THROMBOPLASTIN TIME AM EDT procedur e are in the results section. HC PROTHROMBIN TIME Routine 01/23/2022 1:55 Resul ts for this AM EDT procedure are i n the results section. HC FIBRINOGEN TITER Routine 01/23/2022 1:55 Resul ts for this AM EDT procedure are i n the results section. RAPID DRUG SCREEN W/O Routine 01/23/2022 1:45 Res ults for this CONFIRMATION, URINE AM EDT procedur e are in the results section. RAPID DRUG SCREEN, Routine 01/23/2022 1:45 Result s for this URINE ([facility] REQUEST) AM EDT procedur e are in the results section. HC URINALYSIS ROUTINE Routine 01/23/2022 1:30 Res ults for this AM EDT procedure are i n the results section. HC BLOOD CULTURE- STAT 01/23/2022 1:26 Results for this AM EDT procedure are i n the results section. BLOOD GAS 2 ARTERIAL Routine 01/23/2022 1:25 Resu lts for this AM EDT procedure are i n the results section. EKG 12-LEAD Routine 01/23/2022 12:46 Cardiac arrest Results f or this AM EDT procedure are i n the results section. TYPE AND SCREEN STAT 01/23/2022 12:45 Results for this VALIDITY AM EDT procedure are i n the results section. ABORH RECHECK STATUS STAT 01/23/2022 12:45 Res ults for this AM EDT procedure are i n the results section. T4, FREE Routine 01/23/2022 12:45 Results for this AM EDT procedure are i n the results section. TRIGLYCERIDE Routine 01/23/2022 12:45 Results for this AM EDT procedure are i n the results section. SCAN, PERIPHERAL BLOOD Routine 01/23/2022 12:45 R esults for this AM EDT procedure are i n the results section. DIFFERENTIAL, Routine 01/23/2022 12:45 Results fo r this AUTOMATED AM EDT procedure are i n the results section. HEMOGRAM Routine 01/23/2022 12:45 Results for this AM EDT procedure are i n the results section. ANTIBODY SCREEN STAT 01/23/2022 12:45 Results for this AM EDT procedure are i n the results section. ABO/RH TYPING STAT 01/23/2022 12:45 Results fo r this AM EDT procedure are i n the results section. HC THYROID STIMULATING Routine 01/23/2022 12:45 R esults for this HORMONE, SERUM AM EDT procedure are in the results section. HC CREATINE Routine 01/23/2022 12:45 Results for this PHOSPHOKINASE, SERUM AM EDT procedu re are in the results section. HC TROPONIN T STAT 01/23/2022 12:45 Results fo r this AM EDT procedure are i n the results section. HC CBC,PLT & AUTO DIFF Routine 01/23/2022 12:45 AM EDT BASIC METABOLIC PANEL Routine 01/23/2022 12:45 Re sults for this (NON-FASTING) AM EDT procedure are in the results section. HC PHOSPHORUS, SERUM Routine 01/23/2022 12:45 Res ults for this AM EDT procedure are i n the results section. HC MAGNESIUM, SERUM Routine 01/23/2022 12:45 Resu lts for this AM EDT procedure are i n the results section. HEPATIC FUNCTION PANEL Routine 01/23/2022 12:45 R esults for this AM EDT procedure are i n the results section. HC FIBRINOGEN TITER Routine 01/23/2022 12:45 Resu lts for this AM EDT procedure are i n the results section. HC PARTIAL STAT 01/23/2022 12:45 Results for this THROMBOPLASTIN TIME AM EDT procedur e are in the results section. HC PROTHROMBIN TIME STAT 01/23/2022 12:45 Resu lts for this AM EDT procedure are i n the results section. HC ANTIBODY STAT 01/23/2022 12:45 DETECTION,CAPTURE-R AM EDT POCT GLUCOSE Routine 01/23/2022 12:44 Results for this AM EDT procedure are i n the results section. HC MRSA DETECTION BY Routine 01/23/2022 12:44 Res ults for this PCR AM EDT procedure are i n the results section. COVID-19 PCR Routine 01/23/2022 12:44 Results for this AM EDT procedure are i n the results section. FILM LIBRARY STORAGE Routine 01/22/2022 9:02 Resu lts for this ONLY DX CHEST PM EDT procedure are in the results section. ECG SCAN Routine 01/22/2022 Results for thi s procedure are i n the results section. ANESTHESIA CONSULT LLE Angio/embolization from Last 3 Months Results US EXTREMITY VENOUS DUPLEX LEFT (03/29/2022 11:33 AM EDT) [facility] gist Method Time Signature PT CLASS I RAD ADMITDTTM [id number] RAD PT [facility] INFO [id number]^Moe^He RAD idi^^^ EXAM DESC UEXTDUPL^US LE [facility] VENOUS DUPLEX LEFT^RIS Anatomical Region Laterality Modality Other Specimen (Source) Anatomical Collection Method Collection Time Re ceived Time Location / / Volume Laterality 03/29/2022 11:34 AM EDT Impressions 03/29/2022 1:23 PM EDT Impression: Thrombosis with no significant flow in the distal right femoral and popliteal veins. Thank you for letting us participate in the care of this patient. If you are a health care provider and have any questions regarding this report, please contact the number [place]. For patients who have questions, please contact the [facility] resident care associate that requested your imaging first. ? Lisandro Pruett, Staff Physician Electronically Signed Final Report ?? 01:22 pm Narrative 03/29/2022 1:23 PM EDT Peripheral Venous Duplex ?(Signed Final 03/29/2022 01:22 pm) PATIENT INFO: ID #: ? [id number] ? : [birth year] (31 yrs)(M) Name: ? ERIC HOLLAND ?Visit Date:03/29/2022 11:34 am PERFORMED BY: Performed By: ? Marylou Juarez RDMS Attending: ?Lisandro Pruett MD Referred By: ?Katheryn Rosa Location: ? [place] SERVICE(S) PROVIDED: [id number] - DVT Lower Extremity Limited L eft - [id number] INDICATIONS: left leg pain and edmea r/o DVT TECHNIQUE/SCAN QUALITY: Technique: ? Mix scale, color and spectral Doppler of ?the lower extrem ity venous system. LOWER EXTREMITY PERIPHERAL VENOUS: RIGHT ? Vein ??Thrombu ?Compress ?? S pontaneous ? Augment ? s ?Phasic CFV: ?No ? Yes ?Yes ? Yes LEFT ? Vein ??Thrombu ?Compress ?? S pontaneous ? Augment ? s ?Phasic CFV: ?No ? Yes ?Yes ? Yes FV Junc: ??No ? Yes ?Yes ? Yes PFV: ?No ? Yes ?Yes ? Yes FV Prox: ??No ? Yes ?Yes ? Yes FV Mid: ?? No ? Yes ?Yes ? Yes FV Dist: ??Yes ?No Pop: ?Yes ?No PTV: ?Yes Peron: ?Yes GSV: ?No ? Yes ?Yes Procedure Note Lisandro Pruett MD - 03/29/2022Lesvia childress of this note might be different from the original. Peripheral Venous Duplex (Signed Final 03/29/2022 01:22 pm) PATIENT INFO: ID #: [id number] : [birth year] (31 yrs)( M) Name: ERIC LOTTWELL Visit Date: 022 11:34 am PERFORMED BY: Performed By: Marylou Juarez RDMS Attending: Lisandro Pruett MD Referred By: Katheryn Rosa Location: [place] SERVICE(S) PROVIDED: [id number] - DVT Lower Extremity Limited L eft - [id number] INDICATIONS: left leg pain and edmea r/o DVT TECHNIQUE/SCAN QUALITY: Technique: Mix scale, color and spectr al Doppler of the lower extremity venous system. LOWER EXTREMITY PERIPHERAL VENOUS: RIGHT Vein Thrombu Compress Spontaneous Augme nt s Phasic CFV: No Yes Yes Yes LEFT Vein Thrombu Compress Spontaneous Augme nt s Phasic CFV: No Yes Yes Yes FV Junc: No Yes Yes Yes PFV: No Yes Yes Yes FV Prox: No Yes Yes Yes FV Mid: No Yes Yes Yes FV Dist: Yes No Pop: Yes No PTV: Yes Peron: Yes GSV: No Yes Yes IMPRESSION Impression: Thrombosis with no significant flow in the distal right femoral and popliteal veins. Thank you for letting us participate in the care of this patient. If you are a health care provider and have any questions regarding this report, please contact the number [place]. For patients who have questions, please contact the [facility] resident care associate that requested your imaging first. Lisandro G. Seble, Staff Physician Electronically Signed Final Report 03/29 01:22 pm Katheryn Rosa MD PACS IMAGES CT Angiogram Chest (Non-Coronary) w Contrast (03/26/2022 4:19 PM EDT) [facility] gist Method Time Signature PT CLASS I RAD ADMITDTTM [id number] RAD PT RAD INFO [id number]^Congius RAD ta^Adam^^^M.D . EXAM DESC CTTHAO^CT ANGIO [...] who have questions please contact the health resident care associate that requested your imaging first. ? Narrative [...] COMPARISON: The chest CT portion of a [facility] from 01/30/2022 FINDINGS: VASCULAR Pulmonary arteries: No [...] COMPARISON: The chest CT portion of a [facility] from 01/30/2022 FINDINGS: VASCULAR Pulmonary arteries: No [...] ho have questions please contact the health resident care associate that requested your imaging first. Adam Mosquera MD IMG CT ORDERABLES Scan Doc: ECG (03/25/2022)Only the most recent of2 resultswithin the time period is included. Narrative This result has an attachment that is no t available. Historical Provider MD SCANLON MGR SCAN EXT ORDR/RSLT (ABNORMAL) Hemogram (03/23/2022 4:35 AM EDT)Only the most recent of51 results within the time period is included. Analysis Performed At Patho logist Time Signature WBC 8.1 4.0 - 9.5 [facility] x10(3)/[facility] LABORATORY RBC 2.96 (L) 4.58 - [facility] 5.54 [facility] x10(6)/[facility] LABORATORY Hemoglobin 8.9 (L) 13.7 - [facility] 16.5 g/dL [facility] LABORATORY Hematocrit 26.2 (L) 40.5 - [facility] 48.5 % [facility] LABORATORY MCV 88.5 82.9 - [facility] 93.1 [facility] LABORATORY MCH 30.1 27.5 - [facility] 32.1 pg [facility] LABORATORY MCHC 34.0 32.0 - [facility] 35.7 g/dL [facility] LABORATORY Platelets 230 145 - 357 [facility] x10(3)/[facility] LABORATORY RDWSD 48.9 (H) 36.0 - [facility] 45.0 [facility] LABORATORY RDWCV 15.3 (H) 11.4 - [facility] 13.8 % [facility] LABORATORY MPV 9.8 7.6 - 12.9 [facility] LABORATORY nRBC % Auto 0.0 % [facility] LABORATORY nRBC Abs Auto 0.000 0.000 - [facility] 0.000 [facility] x10(3)/[facility] LABORATORY Specimen Anatomical Collection Method Collection Time Receive d Time (Source) Location / / Volume Laterality Blood 03/23/2022 4:35 AM 5:10 EDT AM EDT Resulting Agency Comment Spec In Lab Jhony Carnes MD HEMATOLOGY ORDERABLES Performing Organization Address City/State/[place] [address] (ABNORMAL) Differential, Automated (03/23/2022 4:35 AM EDT)Only the most recent of45 resultswithin the time period is included. athologist Signature Neutrophils % 65.3 % [facility] LABORATORY Neutr Abs (ANC) 5.26 1.70 - [facility] 6.10 [facility] x10(3)/[facility] LABORATORY Lymphocytes % 17.2 % [facility] LABORATORY Lymphocytes Abs 1.4 0.9 - 3.2 [facility] x10(3)/[facility] LABORATORY Monocytes % 11.0 % [facility] LABORATORY Monocyte Abs 0.9 0.3 - 0.9 [facility] x10(3)/[facility] LABORATORY Eosinophils % 4.6 % [facility] LABORATORY Eosinophils Abs 0.4 0.0 - 0.4 [facility] x10(3)/[facility] LABORATORY Basophils % 0.7 % [facility] LABORATORY Basophils Abs 0.1 0.0 - 0.1 [facility] x10(3)/[facility] LABORATORY Immature Gran % 1.20 % [facility] LABORATORY Comment: Immature granulocytes(IG's)percentage an d absolute count will include metamyelocytes, myelocytes, and promyelo cytes. Blood smears from CBCs yielding IG's will be scanned manually for concor dance. If this scan disagrees with the automated IG or if promyelocytes are not ed, a manual differential will be performed. Gemini Gran Abs 0.10 (H) 0.00 - 0.04 x10(3)/[facility] LABORATORY Specimen Anatomical Collection Method Collection Time Receive d Time (Source) Location / / Volume Laterality Blood 03/23/2022 4:35 AM 5:10 EDT AM EDT Resulting Agency Comment Spec In Lab Jhony Carnes MD HEMATOLOGY ORDERABLES Performing Organization Address City/State/[place] [address] (ABNORMAL) Basic Metabolic Panel (non-fasting) (03/23/2022 3:00 AM EDT)Only the most recent of51 resultswithin the time period is included. athologist Signature Glucose Lvl 102 65 - 199 [facility] mg/dL [facility] LABORATORY Comment: Diabetes: >=200 mg/dL plus symp toms BUN 15 10 - 20 mg/dL [facility] LABORATORY Creatinine 0.55 (L) 0.80 - 1.50 mg/dL [facility] LABORATORY Sodium 139 135 - 145 mmol/L [facility] LABORATORY Potassium 4.1 3.5 - 5.0 mmol/L [facility] LABORATORY Comment: Please note: ??Patients with WBC >100,00 0 may have falsely elevated Potassium levels. ??For accurate Potassium quantif ication in these patients send serum separator tube (gold top) for subsequent determinations. ??Contact the Clinical Chemistry Laboratory if there are any qu estions. Chloride 101 98 - 107 mmol/L [facility] LABORATORY CO2 25 22 - 31 mmol/L [facility] LABORATORY Anion Gap 13 5 - 15 mmol/L [facility] LABORATORY Calcium 9.6 8.5 - 10.5 mg/dL [facility] LABORATORY Estimated GFR 137 >=60 mL/min/1.73 m?? [facility] LABORATORY Comment: This patient's estimated GFR was calcula karina using the 2020 CKD-EPI equation. The estimated GFR can vary from the gustavo ured GFR by up to 30% in the absence of rapidly changing kidney function. Assess ment of the estimated GFR is not appropriate when creatinine concentratio ns are rapidly changing. For clinical situations in which a more precise estim ate of GFR is necessary, consider alternative methods of GFR estimation nicole ch as a 24-hour urine creatinine clearance. Assignment of CKD stage 1-5 for patients with an eGFR near the transition point between stages may be based on clinical assessment of muscle mass and symptoms in addition to eGFR. Specimen Anatomical Collection Method Collection Time Receive d Time (Source) Location / / Volume Laterality Blood 03/23/2022 3:00 AM 3:32 EDT AM EDT Resulting Agency Comment Spec In Lab Jayme Armstrong MD CHEMISTRY ORDERABLES Performing Organization Address City/State/[place] [address] Green Tube HOLD (03/20/2022 12:27 PM EDT)Only the most recent of3 resultswithin the time period is included. P athologist Signature Green Hold Sample in [facility]. [facility] LABORATORY Comment: Collection date/time has been modified t o: 12:27:00. ??Previous collection date/time: 12:28:00 . Corrected from Sample in lab. [NA] on 12:29:23 EDT by Kevon Dickens Specimen Anatomical Collection Method Collection Time Receive d Time (Source) Location / / Volume Laterality Blood No Charge / 03/20/2022 12:27 03/20/2022 Unknown PM EDT 12:28 PM EDT Veto Hidalgo MD CHEMISTRY ORDERABLES Performing Organization Address City/State/ZIP Code Phon e Number [address] Phosphorus (03/20/2022 12:00 PM EDT)Only the most recent of49 resultswithin the time period is included. P athologist Signature Phosphorus 3.8 2.5 - 4.5 [facility] LABORATORY Specimen Anatomical Collection Method Collection Time Receive d Time (Source) Location / / Volume Laterality Blood 03/20/2022 12:00 03/20/2022 PM EDT 12:26 PM EDT Resulting Agency Comment Spec In Lab Jeanette Chatterjee MD CHEMISTRY ORDERABLES Performing Organization Address City/State/ZIP Code Phon e Number [address] Magnesium (03/20/2022 12:00 PM EDT)Only the most recent of45 resultswithin the time period is included. P athologist Signature Magnesium 0.75 0.69 - 1.07 [facility] mmol/L [facility] LABORATORY Specimen Anatomical Collection Method Collection Time Receive d Time (Source) Location / / Volume Laterality Blood 03/20/2022 12:00 03/20/2022 PM EDT 12:26 PM EDT Resulting Agency Comment Spec In Lab Jeanette Chatterjee MD CHEMISTRY ORDERABLES Performing Organization Address City/[facility]/[place] [address] SCAN DOC: TELEMETRY STRIPS (03/15/2022 8:56 AM EDT)Only the most recent of10 resultswithin the time period is included. Narrative This result has an attachment that is no t available. Unknown MEDIA MGR SCAN EXT ORDR/RSLT Vancomycin, trough (03/14/2022 3:09 PM EDT) P athologist Signature Vanc Trough 16.1 mg/L [facility] LABORATORY Comment: Therapeutic range for complicated infect ions such as bacteremia, endocarditis, osteomyelitis, meningitis, and hospital- acquired pneumonia caused by S. aureus: 15-20 mg/L Therapeutic range for other indications: 10-15 mg/L Toxic: >20 mg/L Reference: Vancomycin Therapeutic Monitoring: Ga gill and Recommendations from the ASHP, IDSA and SIDP Task Force. ??Am J Health- Syst Pharm. 2009; 66:82-98 Specimen Anatomical Collection Method Collection Time Receive d Time (Source) Location / / Volume Laterality Blood 03/14/2022 3:09 PM 3:13 EDT PM EDT Resulting Agency Comment Spec In Lab Edu Lawrence MD CHEMISTRY ORDERABLES Performing Organization Address City/[facility]/[place] [address] Anaerobic Culture (03/05/2022 11:05 AM EDT)Only the most recent of8 results within the time period is included. Patholo gist Method Time Signature Anaerobic No anaerobic [facility] Culture organisms [facility] LABORATORY Specimen Anatomical Collection Method Collection Time Receive d Time (Source) Location / / Volume Laterality Fluid 03/05/2022 11:05 03/05/2022 AM EDT 12:02 PM EDT Comment: Fluid from left thigh Resulting Agency Comment Spec In Lab Elaine Dos Santos MD MICROBIOLOGY - GENERAL ORDER JT Performing Organization Address City/[facility]/[place] [address] (ABNORMAL) Body Fluid Culture, Aerobic (03/05/2022 11:05 AM EDT) Component Value Ref Test Analysis Performed At Patholo gist Range Method Time Signature Body Fluid Moderate Staphylococcus aureus, MRSA [facility] Culture Many Pseudomonas aeruginosa HI [facility] (A) [facility] LABORATORY Gram Stain Cytocentrifuge Gram Stain performed [facility] Neutrophils seen [facility] Rare Gram Positive Cocci seen [facility] Rare Gram Negative Rods seen [facility] (A) LABORATORY Organism Staphylococcus [facility] aureus, MRSA (A) [facility] LABORATORY Organism Pseudomonas [facility] aeruginosa (A) [facility] LABORATORY Organism Gram Positive [facility] Cocci (A) [facility] LABORATORY Organism Gram Negative [facility] Rods (A) [facility] LABORATORY Specimen Anatomical Collection Method Collection Time Receive d Time (Source) Location / / Volume Laterality Fluid 03/05/2022 11:05 03/05/2022 AM EDT 12:02 PM EDT Comment: Fluid from left thigh Resulting Agency Comment Spec In Lab Organism Antibiotic Method Susceptibility Staphylococcus aureus, mrsa Clindamycin VITEK 2 METHOD Sens itive Staphylococcus aureus, mrsa Erythromycin VITEK 2 METHOD Sens itive Staphylococcus aureus, mrsa Gentamicin VITEK 2 METHOD Sens itive Comment: Gentamicin is not a ppropriate for [place]-therapy. Staphylococcus aureus, mrsa Linezolid VITEK 2 METHOD Sens itive Staphylococcus aureus, mrsa Oxacillin VITEK 2 METHOD Resi stant Comment: MRSA, Note Nafcil arnoldo Resistance Staphylococcus aureus, mrsa Trimethoprim/Sulfa VITEK 2 METHOD S ensitive Staphylococcus aureus, mrsa Tetracycline VITEK 2 METHOD Sens itive Staphylococcus aureus, mrsa Vancomycin VITEK 2 METHOD 1: S ensitive Pseudomonas aeruginosa Amikacin MICROSCAN METHOD Sensitiv e Pseudomonas aeruginosa Aztreonam MICROSCAN METHOD Resistan t Pseudomonas aeruginosa Cefepime MICROSCAN METHOD >16: Res istant Pseudomonas aeruginosa Ceftazidime MICROSCAN METHOD >16: Res istant Pseudomonas aeruginosa Ciprofloxacin MICROSCAN METHOD Sensitiv e Pseudomonas aeruginosa Gentamicin MICROSCAN METHOD Sensitiv e Pseudomonas aeruginosa Levofloxacin MICROSCAN METHOD Sensitiv e Comment: Levofloxacin and Ciprofloxac in may not adequately treat infections in critically ill patients even when isolates test susceptible in the laboratory. Contact Infectious Disease b efore using in critically ill patients. Pseudomonas aeruginosa Meropenem MICROSCAN METHOD <=1: Sen sitive Pseudomonas aeruginosa Piperacillin/Tazobacta MICROSCAN METHOD > 64: Resistant m Pseudomonas aeruginosa Tobramycin MICROSCAN METHOD Sensitiv e Pseudomonas aeruginosa Ceftazidime/Avibactam MINIMUM INHIBITORY 16: Resistant CONCENTRATION Pseudomonas aeruginosa Ceftolozane/Tazobactam MINIMUM INHIBITORY 4: Sensitive CONCENTRATION Elaine Dos Santos MD MICROBIOLOGY - GENERAL ORDER JT Performing Organization Address City/State/ZIP [place] [address] PICC Line: Contact Vascular Access Page [phone] Extremity to exclude: DO NOT use LEFT Arm; Is PICC procedure required PRIOR to patients discharge? Yes (03/03/2022 2:46 PM EDT) Narrative Adele Nur RN - 03/03/2022 2:46 PM E DT Adele Nur RN ? 03/03/2022 ??2:49 PM PICC/Midline Insertion Procedure Note Indications: Access This insertion was not to replace a malf unctioning catheter. This insertion was not due to a suspecte d line-associated infection. Location of Procedure: X-Ray Room 11 Risks and Benefits: The risks and benefits of this procedure were reviewed and informed consent was obtained obtained. Time Out: Prior to the start of the procedure, the patient's identity, intended procedure, site/side, correct p atient positioning and presence of the site cyndi was confirmed as applicable. The medical history and chart were reviewed to rule out potential contraindications to the planned procedu re. Hand Hygiene: The heel molder did perform hand hygiene pr ior to line insertion. Catheter type: PICC Lot number: [id number] Procedure Technique: Skin was prepped with chlorhexidine. Skin preparation agent was completely dr y at the time of first skin puncture. The following barrier precaution methods were used:large sterile drape, maske/eye shield, large sterile g own, sterile gloves and cap. 3 ml of 1% Lidocaine was used for skin w heal. Ultrasound was used for guidance. ??Radiographic contrast ag ent was not injected for vein identification. Procedure Details: Order received for catheter placement. A 5 Fr. double lumen Bard Power catheter was placed into the right basilic vein over a 0.018 inch guidewire using modified seld jose technique and fluoroscopy. Arm circumference was 28 cm at 2 cm above the insertion site. Final catheter length (with trimming): 4 4 cm Internal: 44 cm External: 0 cm Tip in SVC per [place] The line was not placed over a guidewire . Post Procedure: Diagnosis: LUE/ LLE compartment syndrome Blood return noted on aspiration of line after placement confirmed. 5 mls of normal saline infuse d free flowing to gravity via PICC after insertion. Sterile dressi ng applied: CHG Impregnated Tegaderm. Findings: The patient did tolerate the procedure w ell. No Complications. Procedure Comments: ADELE NUR RN 03/03/2022 Jayme Armstrong MD PROCEDURE/MINOR SURGICAL ORD ERABLES XR PICC Placement Over 5 Years with Imaging Guidance (IV Team) (03/03/2022 2:31 PM EDT) Anatomical Region Laterality Modality N/A Radio Fluoroscopy Specimen (Source) Anatomical Location Collection Method / Collectio n Time Received Time / Laterality Volume Impressions 03/03/2022 2:49 PM EDT Right-sided PICC projects over the superior cavoatrial junction. I have personally reviewed the image(s) and the resident's interpretation and agree with the findings, Danielle Figueroa MD at 03/03/2022 2:49 PM Thank you for letting us participate in the care of this patient. ??If you are a health care provider and have any questi ons regarding this report, please contact the number below. ??For patients who have questions please contact the health resident care associate that requested your imaging first. ? Electronically signed by: Danielle Figueroa MD, [facility] ([phone]), at 03/03/2022 2:49 PM Narrative 03/03/2022 2:49 PM EDT EXAMINATION: XR PICC PLACEMENT OVER 5 YEARS WITH IMAGING GUIDANCE (IV TEAM) CLINICAL HISTORY: Confirmation of PICC l ine placement TECHNIQUE: C-arm placement of PICC line. Limited view of the line tip only. COMPARISON: Chest radiograph 02/07/2022 FINDINGS: Intraprocedural coned down fro ntal radiograph of the mediastinum demonstrates a right PICC line, with the catheter tip projected at the superior cavoatrial junction. Procedure Note Danielle Figueroa MD - 03/03/2022Formatt ing of this note might be different from the original. EXAMINATION: XR PICC PLACEMENT OVER 5 YE ARS WITH IMAGING GUIDANCE (IV TEAM) CLINICAL HISTORY: Confirmation of PICC l ine placement TECHNIQUE: C-arm placement of PICC line. Limited view of the line tip only. COMPARISON: Chest radiograph 02/07/2022 FINDINGS: Intraprocedural coned down fro ntal radiograph of the mediastinum demonstrates a right PICC line, with the catheter tip projected at the superior cavoatrial junction. IMPRESSION Right-sided PICC projects over the super ior cavoatrial junction. I have personally reviewed the image(s) and the resident's interpretation and agree with the findings, Danielle Figueroa MD at 03/03/2022 2:49 PM Thank you for letting us participate in the care of this patient. If you are a health care provider and have any questi ons regarding this report, please contact the number below. For patients w ho have questions please contact the health resident care associate that requested your imaging first. Electronically signed by: Danielle Figueroa MD, [facility] ([phone]), at 03/03/2022 2:49 PM Jayme Armstrong MD IMG FLUORO ORDERABLES Albumin Level (03/02/2022 4:23 AM EDT)Only the most recent of4 resultswithin the time period is included. athologist Signature Albumin 3.3 3.2 - 5.2 [facility] g/dL [facility] LABORATORY Specimen Anatomical Collection Method Collection Time Receive d Time (Source) Location / / Volume Laterality Blood Venous Draw / 03/02/2022 4:23 AM 03/02/20 4:53 Unknown EDT AM EDT Resulting Agency Comment Spec In Lab Nancy Chahal MD CHEMISTRY ORDERABLES Performing Organization Address City/State/[place] [address] (ABNORMAL) Iron and TIBC (03/01/2022 2:00 AM EDT)Only the most recent of2 resultswithin the time period is included. Analysis Performed At Patho logist Time Signature Iron 21 (L) 45 - 160 [facility] mcg/dL [facility] TIBC 185 (L) 250 - 450 [facility] LABOR[facility] Iron Saturation 11 (L) 20 - 50 % [facility] LABORATORY Specimen Anatomical Collection Method Collection Time Receive d Time (Source) Location / / Volume Laterality Blood 03/01/2022 2:00 AM 2 2:03 EDT AM EDT Resulting Agency Comment Spec In Lab Allison Kelly MD CHEMISTRY ORDERABLES Performing Organization Address City/[facility]/ZIP Code Phon e Number [address] (ABNORMAL) Ferritin (03/01/2022 2:00 AM EDT)Only the most recent of2 results within the time period is included. P athologist Signature Ferritin 693 (H) 30 - 400 JOSH MANDO ng/mL [facility] LABORATORY Comment: Pediatric reference ranges not verified at [facility], interpret with caution. Reference ranges for females greater trina n 50 years of age approach values for men, i.e., 30-400 ng/mL. Specimen Anatomical Collection Method Collection Time Receive d Time (Source) Location / / Volume Laterality Blood 03/01/2022 2:00 AM 2 2:03 EDT AM EDT Resulting Agency Comment Spec In Lab Allison Kelly MD CHEMISTRY ORDERABLES Performing Organization Address City/State[place] [facility] [place] Phon [place] Number [address] PTH (02/25/2022 5:30 AM EDT) P athologist Signature PTH 65 15 - 65 JOSH MANDO pg/mL [facility] Specimen Anatomical Collection Method Collection Time Receive d Time (Source) Location / / Volume Laterality Blood Venous Draw / 02/25/2022 5:30 AM 02/26/20 22 Unknown EDT 12:09 PM EDT Resulting Agency Comment Spec In Lab Ximena Robles MD CHEMISTRY ORDERABLES Performing Organization Address City/[facility]/[place] [address] SCAN DOC: LAB (02/24/2022 12:00 AM EDT)Only the most recent of3 resultswithin the time period is included. Narrative This result has an attachment that is no t available. Unknown MEDIA MGR SCAN EXT ORDR/RSLT Transfuse RBC (02/21/2022 4:53 PM EDT)Only the most recent of16 resultswithin the time period is included. Gela Novak MD NURSING TREATMENT ORDERABLES - BLOOD ADMIN Type and Screen Validity (02/21/2022 12:40 PM EDT)Only the most recent of5 resultswithin the time period is included. [facility] [place] Method Time Signature T&S only valid [facility] LABORATORY Comment: This Type and Screen result is only valid at the [facility] Specimen Anatomical Collection Method Collection Time Receive d Time (Source) Location / / Volume Laterality Blood 02/21/2022 12:40 02/21/2022 1:12 PM EDT PM EDT Resulting Agency Comment Spec In Lab Melissa Gonzales MD BLOOD BANK ORDERABLES Performing Organization Address [facility]/[place] [address] ABORH Recheck Status (02/21/2022 12:40 PM EDT)Only the most recent of5 results within the time period is included. [facility] [place] Method Time Signature ABORH Type Completed [facility] LABORATORY Specimen Anatomical Collection Method Collection Time Receive d Time (Source) Location / / Volume Laterality Blood 02/21/2022 12:40 02/21/2022 1:12 PM EDT PM EDT Resulting Agency Comment Spec In Lab Melissa Gonzales MD BLOOD BANK ORDERABLES Performing Organization Address City/[facility]/[place] [address] ABO/Rh Typing (02/21/2022 12:40 PM EDT)Only the most recent of5 resultswithin the time period is included. P athologist Signature ABORh Type A Pos [facility] LABORATORY Specimen Anatomical Collection Method Collection Time Receive d Time (Source) Location / / Volume Laterality Blood 02/21/2022 12:40 02/21/2022 1:12 PM EDT PM EDT Resulting Agency Comment Spec In Lab Melissa Gonzales MD BLOOD BANK ORDERABLES Performing Organization Address City/[facility]/ZIP Code Phon e Number [address] Antibody screen (02/21/2022 12:40 PM EDT)Only the most recent of5 resultswithin the time period is included. [facility] Method Time Signature Ab Screen Negative [facility] LABORATORY Expires at 02/24/2022 [facility] [id number] on: [facility]OR[facility] Specimen Anatomical Collection Method Collection Time Receive d Time (Source) Location / / Volume Laterality Blood 02/21/2022 12:40 02/21/2022 1:12 PM EDT PM EDT Resulting Agency Comment Spec In Lab Melissa Gonzales MD BLOOD BANK ORDERABLES Performing Organization Address City/[facility] Code Phon e Number [address] Prepare RBC (02/21/2022 12:20 PM EDT)Only the most recent of19 resultswithin the time period is included. P athologist Signature Dispensed? Yes [facility]OR[facility] Specimen Anatomical Collection Method Collection Time Receive d Time (Source) Location / / Volume Laterality Blood 02/21/2022 12:20 02/21/2022 PM EDT 12:19 PM EDT Gela Novak MD BLOOD BANK ORDERABLES Performing Organization Address City/[facility] [place] [address] Duplex for DVT, Arm, Unilat (02/19/2022 3:45 PM EDT)Only the most recent of2 resultswithin the time period is included. Component Value Ref Test Analysis Performed At [facility] Range Method Time Signature VB Text Department: Vascular Surgery Lab VASCUBASE Report Patient: [id number] (ERIC HOLLAND) CPT: 35830 Referring Physician: GELA NOVAK ?? Phone: Indications: S/p LT fasciotomies/wound vac w/ LUE edema, ? D VT Findings: LEFT: The axillary, brachial, cephalic and basil ic veins are patent and fully compressible with no evidence of thrombu s. The internal jugular vein is patent and fully compressible with no evidence of thrombus. While compression maneuvers cannot be performed on the subclavian or innomin ate veins, there is no pulsed Doppler or color Doppler evidence to suggest thrombus in the se veins. Note: Unable to study veins in the forearm due to wound vac. Interpretation: LEFT: No evidence of upper extremity deep or superficial honorio ous thrombus. Comparison: No identifiable change when compared to the prev ious exam on 02/03/22. Electronically Signed by: JEANETTE BEARDEN on 2022-02-22 02:53 :16 PM VB Text End of Report [id number] Report Specimen (Source) Anatomical Collection Method Collection Time Re ceived Time Location / / Volume Laterality 02/19/2022 3:45 PM EDT Gela Novak MD VASCULAR ORDERABLES Performing Organization Address City/State/ZIP Code Phon e Number VASCUBASE (ABNORMAL) Abscess/Wound Aspirate Culture (02/19/2022 9:45 AM EDT)Only the most recent of6 resultswithin the time period is included. Component Value Ref Test Analysis Performed At [facility] [place] Range Method Time Signature Abscess/Wound Rare Serratia marcescens M JON Aspirate Rare Pseudomonas aeruginosa HI TCHCOCK Culture (A) [facility] Gram Stain Moderate Neutrophils JOSH No microorganisms seen. [facility] (A) [facility] Organism Serratia JOSH marcescens (A) [facility] LABORATORY Organism Pseudomonas JOSH aeruginosa (A) [facility] LABOR[facility] Specimen Anatomical Collection Method Collection Time Receive d Time (Source) Location / / Volume Laterality Deep Wound STRUCTURE OF LEFT 02/19/2022 9:45 AM 01/30 THIGH / Unknown EDT 10:24 AM EDT Comment: Left leg wound culture Resulting Agency Comment Spec In Lab Organism Antibiotic Method Susceptibility Serratia marcescens Amikacin VITEK 2 METHOD Sensitive Serratia marcescens Aztreonam VITEK 2 METHOD Sensitive Serratia marcescens Cefepime VITEK 2 METHOD <=1: Sensiti ve Serratia marcescens Ceftazidime VITEK 2 METHOD <=1: Sensiti ve Serratia marcescens Ceftriaxone VITEK 2 METHOD Sensitive Serratia marcescens Ertapenem VITEK 2 METHOD Sensitive Serratia marcescens Gentamicin VITEK 2 METHOD Sensitive Serratia marcescens Levofloxacin VITEK 2 METHOD Sensitive Comment: Levofloxacin and Ciprofloxac in may not adequately treat infections in critically ill patients even when isolates test susceptible in the laboratory. Contact Infectious Disease b efore using in critically ill patients. Serratia marcescens Meropenem VITEK 2 METHOD <=0.25: Sens itive Serratia marcescens Tetracycline VITEK 2 METHOD Resistant Serratia marcescens Tigecycline VITEK 2 METHOD Sensitive Serratia marcescens Tobramycin VITEK 2 METHOD Sensitive Serratia marcescens Trimethoprim/Sulfa VITEK 2 METHOD Sensitive Pseudomonas aeruginosa Amikacin MICROSCAN METHOD Sensitiv e Pseudomonas aeruginosa Aztreonam MICROSCAN METHOD Resistan t Pseudomonas aeruginosa Cefepime MICROSCAN METHOD >16: Res istant Pseudomonas aeruginosa Ceftazidime MICROSCAN METHOD >16: Res istant Pseudomonas aeruginosa Ciprofloxacin MICROSCAN METHOD Sensitiv e Pseudomonas aeruginosa Gentamicin MICROSCAN METHOD Sensitiv e Pseudomonas aeruginosa Levofloxacin MICROSCAN METHOD Sensitiv e Comment: Levofloxacin and Ciprofloxac in may not adequately treat infections in critically ill patients even when isolates test susceptible in the laboratory. Contact Infectious Disease b efore using in critically ill patients. Pseudomonas aeruginosa Meropenem MICROSCAN METHOD <=1: Sen sitive Pseudomonas aeruginosa Piperacillin/Tazobactam MICROSCAN METHOD >64: Resistant Pseudomonas aeruginosa Tobramycin MICROSCAN METHOD Sensitiv e Edu Lawrence MD MICROBIOLOGY - GENERAL ORDER JT Performing Organization Address City/State/[place] [address] (ABNORMAL) Vitamin D, 25-Hydroxy (02/19/2022 12:27 AM EDT) [facility] gist Method Time Signature 25-OH Vit D 12 (L) 21 - 100 [facility] Total ng/mL [facility] 25-OH Vit D Deficient [facility] LABORATORY Specimen Anatomical Collection Method Collection Time Receive d Time (Source) Location / / Volume Laterality Blood Venous Draw / 02/19/2022 12:27 02/19/2022 Unknown AM EDT 12:44 AM EDT Resulting Agency Comment Spec In Lab Vidhya Peñaloza MD CHEMISTRY ORDERABLES Performing Organization Address City/[facility]/ZIP Code Phon e Number [address] Hepatitis B Surface Antigen (02/19/2022 12:27 AM EDT)Only the most recent of2 resultswithin the time period is included. Analysis Performed At Patho logist Time Signature HepB Surface Negative Negative [facility] LABORATORY Specimen Anatomical Collection Method Collection Time Receive d Time (Source) Location / / Volume Laterality Blood 02/19/2022 12:27 02/19/2022 AM EDT 12:33 AM EDT Resulting Agency Comment Spec In Lab Gela Novak MD CHEMISTRY ORDERABLES Performing Organization Address City/[facility]/ZIP Code Phon e Number [address] Scan, Peripheral Blood (02/18/2022 4:01 AM EDT)Only the most recent of19 results within the time period is included. Patholo gist Method Time Signature Plat Estimate Normal [facility] RBC Morphology Abnormal [facility] Ovalocytes 1-5 /HPF [facility] Stippled RBCs Present >1/HPF [facility] Specimen Anatomical Collection Method Collection Time Receive d Time (Source) Location / / Volume Laterality Blood 02/18/2022 4:01 AM 4:16 EDT AM EDT Resulting Agency Comment Spec In Lab Collette Dye MD HEMATOLOGY ORDERABLES Performing Organization Address City/[facility]/[place] [address] Femur w Contrast Left (02/13/2022 3:36 PM EDT) Anatomical Region Laterality Modality Thigh Left Computed Tomography Specimen (Source) Anatomical Collection Method Collection Time Re ceived Time Location / / Volume Laterality 02/13/2022 3:52 PM EDT Impressions 02/13/2022 6:27 PM EDT 1. No evidence of deep intra-abdominal i nfection. 2. Status post coiling of the LEFT super ior gluteal artery and LEFT lateral thigh fasciotomy. 3. Suspect incomplete clearing of the LE FT medial gluteal abscess. 4. Ill-defined, likely abscess involving the LEFT abductor jorge muscle 8 x 4.5 x 3.5 cm. MRI may be beneficial in furth er characterization. 5. Anasarca 6. RIGHT basilar pleural effusions and u nderlying airspace consolidations, atelectasis versus pneumonitis. Thank you for letting us participate in the care of this patient. ??If you are a health care provider and have any questi ons regarding this report, please contact the number below. ??For patients who have questions please contact the health resident care associate that requested your imaging first. ? Narrative 02/13/2022 6:27 PM EDT EXAMINATION: CT ABDOMEN AND PELVIS W CONTRAST, CT FEMUR W CONTRAST LEFT CLINICAL HISTORY: Abdominal abscess/infe ction suspected Patient with C diff increasing white cou nt, eval for worsening infection, also with left thigh fasciotomy eval for deep infection, on HD TECHNIQUE: Helical CT of the abdomen and pelvis was performed following the intravenous administration of contrast. Administered 99.0 ml of OMNIPAQUE 350.00 mg/ml. Oral contrast was not administere d. COMPARISON: The 2021 FINDINGS: Lower chest: Basilar streaky and conflue nt dependent airspace consolidation with air bronchograms, LEFT greater than RIGH T. Small, LEFT greater than RIGHT pleural e ffusions. Liver: Normal size and attenuation witho ut lesions. Bile ducts: Nondilated. Gallbladder: No calcified gallstones. No rmal caliber wall. Pancreas: Normal attenuation without yayo lg dilatation. Spleen: Normal. Adrenals: Normal. Kidneys: No significant enhancement post contrast. No cortical thinning or nephrolithiasis. Urinary Bladder: Moderately distended. F ocus of nondependent air Vasculature: No aneurysm. Lymph Nodes: No enlarged lymph nodes. Bowel: Nondilated. Rectal tube in place with inflated balloon. Mild wall thickening in the jejunal loops of the L EFT upper quadrant. No pneumatosis. Air-fluid levels throughout the colon. N o colonic submucosal enhancement Peritoneum and mesentery: Free fluid in the bilateral paracolic gutters, rectovesical space and within the leaves of the small bowel mesentery. No free air, or loculated fluid collecti on. No pericolonic inflammation. Abdominal wall: Edema within the soft ti ssues of the bilateral flanks. Fasciotomy defect at the level of the LE FT greater trochanter metallic coils between the LEFT gluteus avery and glu teus medius muscle. Reproductive organs: Normal. Osseous structures: No suspicious lesion s. Sacralization of the transverse processes of L5 bilateral. Soft tissues: Fasciotomy defect containing subcutaneou s air likely within packing material laterally at the level of the LEFT iliac wing. Punctate foci of air remain in the rosa on of the previously seen abscess within the LEFT gluteus medius muscle. The absc ess cavity is partially collapsed and ill-defined. Punctate foci of air within the anterior portions of the LEFT gluteus medius muscle just lateral to the rectus femori s and posterior to the vastus lateralis muscles. LEFT lower extremity: Fasciotomy defect extending from the lev el of the LEFT hip to the distal thigh. Edema within the vastus lateralis and in termedius muscles without identifiable rim-enhancing collection or gas. Ill-defined 8 x 4.5 x 3.5 cm low-density collection with partial rim enhancement in the abductor jorge muscle (series 9, image 96). Suspect abscess. Fluid within the fascial planes of the p osterior compartment. Circumferential edema in the soft tissue s of the LEFT thigh. No fracture or abnormal periosteal react ion. Procedure Note Zander Hayes, - 02/13/2022Formatt ing of this note might be different from the original. EXAMINATION: CT ABDOMEN AND PELVIS W CON TRAST, CT FEMUR W CONTRAST LEFT CLINICAL HISTORY: Abdominal abscess/infe ction suspected Patient with C diff increasing white cou nt, eval for worsening infection, also with left thigh fasciotomy eval for deep infection, on HD TECHNIQUE: Helical CT of the abdomen and pelvis was performed following the intravenous administration of contrast. Administered 99.0 ml of OMNIPAQUE 350.00 mg/ml. Oral contrast was not administere d. COMPARISON: The 2021 FINDINGS: Lower chest: Basilar streaky and conflue nt dependent airspace consolidation with air bronchograms, LEFT greater than RIGH T. Small, LEFT greater than RIGHT pleural e ffusions. Liver: Normal size and attenuation witho ut lesions. Bile ducts: Nondilated. Gallbladder: No calcified gallstones. No rmal caliber wall. Pancreas: Normal attenuation without yayo gl dilatation. Spleen: Normal. Adrenals: Normal. Kidneys: No significant enhancement post contrast. No cortical thinning or nephrolithiasis. Urinary Bladder: Moderately distended. F ocus of nondependent air Vasculature: No aneurysm. Lymph Nodes: No enlarged lymph nodes. Bowel: Nondilated. Rectal tube in place with inflated balloon. Mild wall thickening in the jejunal loops of the L EFT upper quadrant. No pneumatosis. Air-fluid levels throughout the colon. N o colonic submucosal enhancement Peritoneum and mesentery: Free fluid in the bilateral paracolic gutters, rectovesical space and within the leaves of the small bowel mesentery. No free air, or loculated fluid collecti on. No pericolonic inflammation. Abdominal wall: Edema within the soft ti ssues of the bilateral flanks. Fasciotomy defect at the level of the LE FT greater trochanter metallic coils between the LEFT gluteus avery and glu teus medius muscle. Reproductive organs: Normal. Osseous structures: No suspicious lesion s. Sacralization of the transverse processes of L5 bilateral. Soft tissues: Fasciotomy defect containing subcutaneou s air likely within packing material laterally at the level of the LEFT iliac wing. Punctate foci of air remain in the rosa on of the previously seen abscess within the LEFT gluteus medius muscle. The absc ess cavity is partially collapsed and ill-defined. Punctate foci of air within the anterior portions of the LEFT gluteus medius muscle just lateral to the rectus femori s and posterior to the vastus lateralis muscles. LEFT lower extremity: Fasciotomy defect extending from the lev el of the LEFT hip to the distal thigh. Edema within the vastus lateralis and in termedius muscles without identifiable rim-enhancing collection or gas. Ill-defined 8 x 4.5 x 3.5 cm low-density collection with partial rim enhancement in the abductor jorge muscle (series 9, image 96). Suspect abscess. Fluid within the fascial planes of the p osterior compartment. Circumferential edema in the soft tissue s of the LEFT thigh. No fracture or abnormal periosteal react ion. IMPRESSION 1. No evidence of deep intra-abdominal i nfection. 2. Status post coiling of the LEFT super ior gluteal artery and LEFT lateral thigh fasciotomy. 3. Suspect incomplete clearing of the LE FT medial gluteal abscess. 4. Ill-defined, likely abscess involving the LEFT abductor jorge muscle 8 x 4.5 x 3.5 cm. MRI may be beneficial in furth er characterization. 5. Anasarca 6. RIGHT basilar pleural effusions and u nderlying airspace consolidations, atelectasis versus pneumonitis. Thank you for letting us participate in the care of this patient. If you are a health care provider and have any questi ons regarding this report, please contact the number below. For patients w ho have questions please contact the health resident care associate that requested your imaging first. Dillon Betancourt MD IMG CT ORDERABLES CT Abdomen & Pelvis w Contrast (02/13/2022 3:36 PM EDT) Anatomical Region Laterality Modality Abdomen, Pelvis Computed Tomography Specimen (Source) Anatomical Collection Method Collection Time Re ceived Time Location / / Volume Laterality 02/13/2022 3:52 PM EDT Impressions 02/13/2022 6:27 PM EDT 1. No evidence of deep intra-abdominal i nfection. 2. Status post coiling of the LEFT super ior gluteal artery and LEFT lateral thigh fasciotomy. 3. Suspect incomplete clearing of the LE FT medial gluteal abscess. 4. Ill-defined, likely abscess involving the LEFT abductor jorge muscle 8 x 4.5 x 3.5 cm. MRI may be beneficial in furth er characterization. 5. Anasarca 6. RIGHT basilar pleural effusions and u nderlying airspace consolidations, atelectasis versus pneumonitis. Thank you for letting us participate in the care of this patient. ??If you are a health care provider and have any questi ons regarding this report, please contact the number below. ??For patients who have questions please contact the health resident care associate that requested your imaging first. ? Narrative 02/13/2022 6:27 PM EDT EXAMINATION: CT ABDOMEN AND PELVIS W CONTRAST, CT FEMUR W CONTRAST LEFT CLINICAL HISTORY: Abdominal abscess/infe ction suspected Patient with C diff increasing white cou nt, eval for worsening infection, also with left thigh fasciotomy eval for deep infection, on HD TECHNIQUE: Helical CT of the abdomen and pelvis was performed following the intravenous administration of contrast. Administered 99.0 ml of OMNIPAQUE 350.00 mg/ml. Oral contrast was not administere d. COMPARISON: The 2021 FINDINGS: Lower chest: Basilar streaky and conflue nt dependent airspace consolidation with air bronchograms, LEFT greater than RIGH T. Small, LEFT greater than RIGHT pleural e ffusions. Liver: Normal size and attenuation witho ut lesions. Bile ducts: Nondilated. Gallbladder: No calcified gallstones. No rmal caliber wall. Pancreas: Normal attenuation without yayo lg dilatation. Spleen: Normal. Adrenals: Normal. Kidneys: No significant enhancement post contrast. No cortical thinning or nephrolithiasis. Urinary Bladder: Moderately distended. F ocus of nondependent air Vasculature: No aneurysm. Lymph Nodes: No enlarged lymph nodes. Bowel: Nondilated. Rectal tube in place with inflated balloon. Mild wall thickening in the jejunal loops of the L EFT upper quadrant. No pneumatosis. Air-fluid levels throughout the colon. N o colonic submucosal enhancement Peritoneum and mesentery: Free fluid in the bilateral paracolic gutters, rectovesical space and within the leaves of the small bowel mesentery. No free air, or loculated fluid collecti on. No pericolonic inflammation. Abdominal wall: Edema within the soft ti ssues of the bilateral flanks. Fasciotomy defect at the level of the LE FT greater trochanter metallic coils between the LEFT gluteus avery and glu teus medius muscle. Reproductive organs: Normal. Osseous structures: No suspicious lesion s. Sacralization of the transverse processes of L5 bilateral. Soft tissues: Fasciotomy defect containing subcutaneou s air likely within packing material laterally at the level of the LEFT iliac wing. Punctate foci of air remain in the rosa on of the previously seen abscess within the LEFT gluteus medius muscle. The absc ess cavity is partially collapsed and ill-defined. Punctate foci of air within the anterior portions of the LEFT gluteus medius muscle just lateral to the rectus femori s and posterior to the vastus lateralis muscles. LEFT lower extremity: Fasciotomy defect extending from the lev el of the LEFT hip to the distal thigh. Edema within the vastus lateralis and in termedius muscles without identifiable rim-enhancing collection or gas. Ill-defined 8 x 4.5 x 3.5 cm low-density collection with partial rim enhancement in the abductor jorge muscle (series 9, image 96). Suspect abscess. Fluid within the fascial planes of the p osterior compartment. Circumferential edema in the soft tissue s of the LEFT thigh. No fracture or abnormal periosteal react ion. Procedure Note Zander Hayes, DO - 02/13/2022Formatt ing of this note might be different from the original. EXAMINATION: CT ABDOMEN AND PELVIS W CON TRAST, CT FEMUR W CONTRAST LEFT CLINICAL HISTORY: Abdominal abscess/infe ction suspected Patient with C diff increasing white cou nt, eval for worsening infection, also with left thigh fasciotomy eval for deep infection, on HD TECHNIQUE: Helical CT of the abdomen and pelvis was performed following the intravenous administration of contrast. Administered 99.0 ml of OMNIPAQUE 350.00 mg/ml. Oral contrast was not administere d. COMPARISON: The 2021 FINDINGS: Lower chest: Basilar streaky and conflue nt dependent airspace consolidation with air bronchograms, LEFT greater than RIGH T. Small, LEFT greater than RIGHT pleural e ffusions. Liver: Normal size and attenuation witho ut lesions. Bile ducts: Nondilated. Gallbladder: No calcified gallstones. No rmal caliber wall. Pancreas: Normal attenuation without yayo lg dilatation. Spleen: Normal. Adrenals: Normal. Kidneys: No significant enhancement post contrast. No cortical thinning or nephrolithiasis. Urinary Bladder: Moderately distended. F ocus of nondependent air Vasculature: No aneurysm. Lymph Nodes: No enlarged lymph nodes. Bowel: Nondilated. Rectal tube in place with inflated balloon. Mild wall thickening in the jejunal loops of the L EFT upper quadrant. No pneumatosis. Air-fluid levels throughout the colon. N o colonic submucosal enhancement Peritoneum and mesentery: Free fluid in the bilateral paracolic gutters, rectovesical space and within the leaves of the small bowel mesentery. No free air, or loculated fluid collecti on. No pericolonic inflammation. Abdominal wall: Edema within the soft ti ssues of the bilateral flanks. Fasciotomy defect at the level of the LE FT greater trochanter metallic coils between the LEFT gluteus avery and glu teus medius muscle. Reproductive organs: Normal. Osseous structures: No suspicious lesion s. Sacralization of the transverse processes of L5 bilateral. Soft tissues: Fasciotomy defect containing subcutaneou s air likely within packing material laterally at the level of the LEFT iliac wing. Punctate foci of air remain in the rosa on of the previously seen abscess within the LEFT gluteus medius muscle. The absc ess cavity is partially collapsed and ill-defined. Punctate foci of air within the anterior portions of the LEFT gluteus medius muscle just lateral to the rectus femori s and posterior to the vastus lateralis muscles. LEFT lower extremity: Fasciotomy defect extending from the lev el of the LEFT hip to the distal thigh. Edema within the vastus lateralis and in termedius muscles without identifiable rim-enhancing collection or gas. Ill-defined 8 x 4.5 x 3.5 cm low-density collection with partial rim enhancement in the abductor jorge muscle (series 9, image 96). Suspect abscess. Fluid within the fascial planes of the p osterior compartment. Circumferential edema in the soft tissue s of the LEFT thigh. No fracture or abnormal periosteal react ion. IMPRESSION 1. No evidence of deep intra-abdominal i nfection. 2. Status post coiling of the LEFT super ior gluteal artery and LEFT lateral thigh fasciotomy. 3. Suspect incomplete clearing of the LE FT medial gluteal abscess. 4. Ill-defined, likely abscess involving the LEFT abductor jorge muscle 8 x 4.5 x 3.5 cm. MRI may be beneficial in furth er characterization. 5. Anasarca 6. RIGHT basilar pleural effusions and u nderlying airspace consolidations, atelectasis versus pneumonitis. Thank you for letting us participate in the care of this patient. If you are a health care provider and have any questi ons regarding this report, please contact the number below. For patients w ho have questions please contact the health resident care associate that requested your imaging first. Dillon Betancourt MD IMG CT ORDERABLES XR Abdomen 1 view (Generic) (02/13/2022 8:10 AM EDT)Only the most recent of2 resultswithin the time period is included. Anatomical Region Laterality Modality Abdomen N/A Digital Radiography Specimen (Source) Anatomical Location Collection Method / Collectio n Time Received Time / Laterality Volume Impressions 02/13/2022 8:56 AM EDT No obstruction. No perforation. Thank you for letting us participate in the care of this patient. ??If you are a health care provider and have any questi ons regarding this report, please contact the number below. ??For patients who have questions please contact the health resident care associate that requested your imaging first. ? Electronically signed by: Mercedes Redding MD , [facility] ([phone]), at 02/13/2022 8:56 AM Narrative 02/13/2022 8:56 AM EDT EXAMINATION: XR ABDOMEN 1 VIEW (GENERIC) CLINICAL HISTORY: increasing leukocytosi s, has c. diff, ? worsening/unresolving c. diff or abd source increasing leukocytosis, has c. diff, ? worsening/unresolving c. diff or abd source TECHNIQUE: Supine abdomen COMPARISON: CT scan January 30, 2022 FINDINGS: On this supine view, no free intraperito edwardo air, coils are projected over the left lower quadrant. Scattered air-fille d loops of large and small bowel. Not abnormally distended. Paucity of bowel g as at the pelvic outlet. Procedure Note Mercedes Redding MD - 02/13/2022 EXAMINATION: XR ABDOMEN 1 VIEW (GENERIC) CLINICAL HISTORY: increasing leukocytosi s, has c. diff, ? worsening/unresolving c. diff or abd source increasing leukocytosis, has c. diff, ? worsening/unresolving c. diff or abd source TECHNIQUE: Supine abdomen COMPARISON: CT scan January 30, 2022 FINDINGS: On this supine view, no free intraperito edwardo air, coils are projected over the left lower quadrant. Scattered air-fille d loops of large and small bowel. Not abnormally distended. Paucity of bowel g as at the pelvic outlet. IMPRESSION No obstruction. No perforation. Thank you for letting us participate in the care of this patient. If you are a health care provider and have any questi ons regarding this report, please contact the number below. For patients w ho have questions please contact the health resident care associate that requested your imaging first. Electronically signed by: Mercedes Redding MD , [facility] ([phone]), at 02/13/2022 8:56 AM Dillon Betancourt MD IMG DX ORDERABLES (ABNORMAL) Sodium (02/12/2022 4:45 PM EDT)Only the most recent of16 results within the time period is included. athologist Signature Sodium 128 (L) 135 - 145 [facility] mmol/L [facility] Specimen Anatomical Collection Method Collection Time Receive d Time (Source) Location / / Volume Laterality Blood 02/12/2022 4:45 PM 5:17 EDT PM EDT Resulting Agency Comment Spec In Lab Dillon Betancourt MD CHEMISTRY ORDERABLES Performing Organization Address City/[facility]/[place] [address] (ABNORMAL) Prealbumin (02/12/2022 12:30 AM EDT) P athologist Signature Prealbumin 15 (L) 20 - 40 [facility] Comment: Prealbumin levels are generally lower in the pediatric population; adult concentrations are usually attained near puberty. Specimen Anatomical Collection Method Collection Time Receive d Time (Source) Location / / Volume Laterality Blood 02/12/2022 12:30 02/12/2022 1:03 AM EDT AM EDT Resulting Agency Comment Spec In Lab Dillon Betancourt MD CHEMISTRY ORDERABLES Performing Organization Address City/[facility]/[place] [address] MRI Brain wo Contrast (02/11/2022 5:13 PM EDT)Only the most recent of2 results within the time period is included. Anatomical Region Laterality Modality Head Magnetic Resonance Specimen (Source) Anatomical Location Collection Method / Collectio n Time Received Time / Laterality Volume Impressions 02/11/2022 5:54 PM EDT Evolution of bilateral globi pallidi injury. Question subtle developing deep white ma tter changes. Mild increased caliber of the ventricula r system which may reflect reduced edema or volume loss secondary to recent toxic metabolic insult. Thank you for letting us participate in the care of this patient. ??If you are a health care provider and have any questi ons regarding this report, please contact the number below. ??For patients who have questions please contact the health resident care associate that requested your imaging first. ? 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 Residual near symmetric T2 prolongation within the globi pallidi as well as susceptibility related signal lo ss. Question subtle deep white matter hyperintense signal on the T2-weighted a nd FLAIR sequences. No new diffusion-weighted abnormality. No mass effect or extra-axial collection. Mild increased caliber of the supratentorial ventricles and increased prominence of the sulcal subarachnoid space. Major int racranial vascular flow voids are preserved. Mild scattered paranasal sinu s mucosal thickening and small submucosal retention cysts in the left m axillary sinus. The mastoid air cells are grossly clear. The orbits are unrema rkable. Procedure Note Bernadine Edward MD - 02/11/2022Form atting of this note might be different from the original. 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 Residual near symmetric T2 prolongation within the globi pallidi as well as susceptibility related signal lo ss. Question subtle deep white matter hyperintense signal on the T2-weighted a nd FLAIR sequences. No new diffusion-weighted abnormality. No mass effect or extra-axial collection. Mild increased caliber of the supratentorial ventricles and increased prominence of the sulcal subarachnoid space. Major int racranial vascular flow voids are preserved. Mild scattered paranasal sinu s mucosal thickening and small submucosal retention cysts in the left m axillary sinus. The mastoid air cells are grossly clear. The orbits are unrema rkable. IMPRESSION Evolution of bilateral globi pallidi inj ury. Question subtle developing deep white ma tter changes. Mild increased caliber of the ventricula r system which may reflect reduced edema or volume loss secondary to recent toxic metabolic insult. Thank you for letting us participate in the care of this patient. If you are a health care provider and have any questi ons regarding this report, please contact the number below. For patients w ho have questions please contact the health resident care associate that requested your imaging first. Dillon Betancourt MD IMG MRI ORDERABLES (ABNORMAL) Blood Gas Arterial ([facility]) (02/09/2022 5:43 PM EDT)Only the most recent of8 resultswithin the time period is included. Analysis Performed At Patho logist Time Signature pH Art 7.46 (H) 7.35 - [facility] 7.45 [facility] pCO2 Art 35 35 - 45 [facility] mmHg [facility] pO2 Art 73 (L) 85 - 104 [facility] LABORATORY HCO3 Art 24.8 20.0 - [facility] 26.0 [facility] mmol/L [facility] BE Art 1.1 -3.0 - 3.0 [facility] mmol/L [facility] Hgb Blood Gas 9.2 (L) 13.7 - [facility] 16.5 g/dL [facility] O2HB Art 94.9 94.0 - [facility] 97.0 % [facility] COHB Art 0.5 % [facility] Comment: Nonsmokers: ??0.5-1.5% COHB Smokers: ??Variable, but usually less th an 10% Toxic: 20 - 30% COHB Lethal: ??Greater than 60% COHB METHB Art 0.3 <=1.5 % [facility] Na Whole Blood 126 (L) 135 - 145 mmol/L [facility] K Whole Blood 4.2 3.5 - 5.0 mmol/L [facility] Comment: Please note: ??Patients with WBC >100,00 0 may have falsely elevated Potassium levels. ??Contact the Clinical Chemistry Laboratory if there are any questions. ICa Whole Blood 1.12 (L) 1.15 - 1.33 mmol/L [facility] Comment: Note: ??Total bilirubin higher than 20 m g/dL may lead to falsely low ionized calcium. CL Whole Blood 100 98 - 107 mmol/L [facility] Gluc Whole Bld 97 65 - 199 mg/dL [facility] Comment: Diabetes: >=200 mg/dL plus symp toms. Lactate WB 1.1 0.5 - 2.2 mmol/L [facility] Specimen Anatomical Collection Method Collection Time Receive d Time (Source) Location / / Volume Laterality Blood Arterial Draw / 02/09/2022 5:43 PM 2021 5:43 Unknown EDT PM EDT Resulting Agency Comment Spec In Lab Kaitlyn Rock MD CHEMISTRY ORDERABLES Performing Organization Address City/[facility]/[place] [address] (ABNORMAL) Electrolytes panel (02/09/2022 5:35 PM EDT)Only the most recent of14 resultswithin the time period is included. athologist Signature Sodium 132 (L) 135 - 145 [facility] mmol/[facility] Potassium 4.3 3.5 - 5.0 [facility] mmol/L [facility] Comment: Please note: ??Patients with WBC >100,00 0 may have falsely elevated Potassium levels. ??For accurate Potassium quantif ication in these patients send serum separator tube (gold top) for subsequent determinations. ??Contact the Clinical Chemistry Laboratory if there are any qu estions. Chloride 100 98 - 107 mmol/L [facility] CO2 21 (L) 22 - 31 mmol/L [facility] Anion Gap 11 5 - 15 mmol/L [facility] Specimen Anatomical Collection Method Collection Time Receive d Time (Source) Location / / Volume Laterality Blood 02/09/2022 5:35 PM 5:44 EDT PM EDT Resulting Agency Comment Spec In Lab Dillon Betancourt MD CHEMISTRY ORDERABLES Performing Organization Address City/State/[place] [address] (ABNORMAL) Tissue culture (02/09/2022 4:26 PM EDT) Component Value Ref Test Analysis Performed At [facility] gist Range Method Time Signature Tissue Few Pseudomonas aeruginosa MAR Y Culture Few Serratia marcescens [facility] Susceptibilities previously reported [facility] Gram Stain Many Neutrophils seen [facility] Moderate Gram Negative Rods seen [facility] Results called to and read back by Lilibeth Dial RN [facility] 02/09/22 18:20:09 HOSPITAL () LABORATORY Organism Pseudomonas [facility]OS[facility] aeruginosa (A) [facility] Organism Serratia marcescens [facility] (A) [facility] Organism Gram Negative Rods [facility] (A) [facility] Specimen Anatomical Collection Method Collection Time Receive d Time (Source) Location / / Volume Laterality Thigh 02/09/2022 4:26 PM 5:23 EDT PM EDT Comment: Left thigh Resulting Agency Comment Spec In Lab Jeanette Chatterjee MD MICROBIOLOGY - GENERAL ORDER JT Performing Organization Address City/State/[place] [address] (ABNORMAL) BLOOD GAS 2 ARTERIAL (02/09/2022 1:02 AM EDT)Only the most recent of 20 resultswithin the time period is included. Analysis Performed At Patho logist Time Signature pH Art 7.49 (H) 7.35 - [facility] 7.45 [facility] pCO2 Art 30 (L) 35 - 45 [facility] mmHg [facility] pO2 Art 92 85 - 104 [facility] mmHg [facility] HCO3 Art 22.5 20.0 - [facility] 26.0 [facility] mmol/L [facility] BE Art -0.9 -3.0 - 3.0 [facility] mmol/L [facility] Hgb Blood Gas 8.1 (L) 13.7 - [facility] 16.5 g/dL [facility] O2HB Art 95.1 94.0 - [facility] 97.0 % [facility] COHB Art 0.3 % [facility] Comment: Nonsmokers: 0.5-1.5% COHB Smokers: Variable, but usually less than 10% Toxic: 20-30% COHB Lethal: Greater than 60% COHB METHB Art 1.0 <=1.5 % [facility] Na Whole Blood 122 (L) 135 - 145 mmol/L [facility] K Whole Blood 3.9 3.5 - 5.0 mmol/L [facility] Comment: Please note: Patients with WBC >100,000 may have falsely elevated Potassium levels. Contact the Clinical Chemistry L aboratory if there are any questions. ICa Whole Blood 1.18 1.15 - 1.33 mmol/L [facility] Comment: Note: ??Total bilirubin higher than 20 m g/dL may lead to falsely low ionized calcium. CL Whole Blood 98 98 - 107 mmol/L [facility] Gluc Whole Bld 125 65 - 199 mg/dL [facility] Comment: Diabetes: >=200 mg/dL plus symp toms. Lactate WB 2.2 0.5 - 2.2 mmol/L [facility] Specimen Anatomical Collection Method Collection Time Receive d Time (Source) Location / / Volume Laterality Blood 02/09/2022 1:02 AM 2 1:02 EDT AM EDT Dillon Betancourt MD CHEMISTRY ORDERABLES Performing Organization Address City/State/[place] [address] POCT Glucose (02/08/2022 5:56 PM EDT)Only the most recent of56 resultswithin the time period is included. P athologist Signature POC Glucose 92 65 - 199 [facility] mg/dL [facility] Comment: Supplemental ranges: <140 mg/dL before meals <180 mg/dL all other times of the day Specimen Anatomical Collection Method Collection Time Receive d Time (Source) Location / / Volume Laterality Blood 02/08/2022 5:56 PM 2 5:56 EDT PM EDT Dillon Betancourt MD POINT OF CARE TEST ORDERABLE S Performing Organization Address City/State/ZIP Code Phon e Number [address] (ABNORMAL) Calcium Ionized Whole Blood, HONORIO (02/08/2022 11:00 AM EDT)Only the most recent of10 resultswithin the time period is included. Analysis Performed At Patho logist Time Signature pH Honorio 7.46 (H) 7.32 - [facility] 7.42 [facility] ICa Whole 1.26 1.15 - [facility] Blood 1.33 [facility] mmol/L [facility] Comment: Note: ??Total bilirubin higher than 20 m g/dL may lead to falsely low ionized calcium. Specimen Anatomical Collection Method Collection Time Receive d Time (Source) Location / / Volume Laterality Blood ARTERIAL LINE / 02/08/2022 11:00 02/09/20 22 Unknown AM EDT 11:09 AM EDT Resulting Agency Comment Spec In Lab Dillon Betancourt MD CHEMISTRY ORDERABLES Performing Organization Address City/[facility]/ZIP Code Phon e Number [address] APTT (02/08/2022 1:00 AM EDT)Only the most recent of6 resultswithin the time period is included. P athologist Signature PTT 25 25 - 37 sec [facility] Comment: The PTT is NOT appropriate for heparin m onitoring. Use the Anti-Xa level for heparin monitoring (HEP UFH) or LMWH mon itoring (HEP LMW). A PTT less than 37 seconds generally indicates adequate hem ostasis. Specimen Anatomical Collection Method Collection Time Receive d Time (Source) Location / / Volume Laterality Blood 02/08/2022 1:00 AM 2 1:20 EDT AM EDT Resulting Agency Comment Spec In Lab Jayme Armstrong MD HEMATOLOGY ORDERABLES Performing Organization Address City/[facility]/ZIP Code Phon e Number [address] Prothrombin Time (02/08/2022 1:00 AM EDT)Only the most recent of13 resultswithin the time period is included. P athologist Signature PT 12.2 9.4 - 12.5 [facility] LABORATORY INR 1.1 [facility] Comment: An INR <2.0 indicates adequate procoagul ant activity for hemostasis in most patients without underlying bleeding dis orders, though the INR may not adequately reflect hemostatic capacity i n patients with liver disease and synthetic impairment. The recommended ta rget INR range for therapeutic anticoagulation is 2.0 ? 3.0 for most applications, though lower and higher ranges may be appropriate depending on c linical circumstances. Specimen Anatomical Collection Method Collection Time Receive d Time (Source) Location / / Volume Laterality Blood 02/08/2022 1:00 AM 2 1:20 EDT AM EDT Resulting Agency Comment Spec In Lab Jayme Armstrong MD HEMATOLOGY ORDERABLES Performing Organization Address City/State/ZIP Code Phon e Number [address] (ABNORMAL) Fibrinogen (02/08/2022 1:00 AM EDT)Only the most recent of13 results within the time period is included. athologist Signature Fibrinogen 423 (H) 200 - 393 [facility] mg/dL [facility] Comment: A fibrinogen level >100 mg/dL is adequat e for hemostasis in most patients without underlying bleeding disorders. Specimen Anatomical Collection Method Collection Time Receive d Time (Source) Location / / Volume Laterality Blood 02/08/2022 1:00 AM 2 1:20 EDT AM EDT Resulting Agency Comment Spec In Lab Jayme Armstrong MD HEMATOLOGY ORDERABLES Performing Organization Address City/State/[place] [address] XR Chest One View (02/07/2022 1:15 PM EDT)Only the most recent of4 resultswithin the time period is included. Anatomical Region Laterality Modality Chest N/A Digital Radiography Specimen (Source) Anatomical Location Collection Method / Collectio n Time Received Time / Laterality Volume Impressions 02/07/2022 1:37 PM EDT No appreciable interval change. Unchanged position of the central venous catheters, as above. Thank you for letting us participate in the care of this patient. ??If you are a health care provider and have any questi ons regarding this report, please contact the number below. ??For patients who have questions please contact the health resident care associate that requested your imaging first. ? Narrative 02/07/2022 1:37 PM EDT EXAMINATION: XR CHEST ONE VIEW CLINICAL HISTORY: COVID +, line placemen t TECHNIQUE: 1 view of the chest COMPARISON: Chest radiograph January 23, 2022, CT chest abdomen pelvis January 30, 2022 FINDINGS: Dialysis catheter placed via right IJ ap proach, tip at the cavoatrial junction. Left-sided central venous catheter, tip in the mid SVC. Low lung volumes. Unchanged ill-defined linearly oriented opacities in the midlung regions bilaterally, left slight ly more prominent on the right, not appreciably changed. No pneumothorax or pleural effusions. Procedure Note Boubacar Olsen MD - 02/07/2022For matting of this note might be different from the original. EXAMINATION: XR CHEST ONE VIEW CLINICAL HISTORY: COVID +, line placemen t TECHNIQUE: 1 view of the chest COMPARISON: Chest radiograph January 23, 2022, CT chest abdomen pelvis January 30, 2022 FINDINGS: Dialysis catheter placed via right IJ ap proach, tip at the cavoatrial junction. Left-sided central venous catheter, tip in the mid SVC. Low lung volumes. Unchanged ill-defined linearly oriented opacities in the midlung regions bilaterally, left slight ly more prominent on the right, not appreciably changed. No pneumothorax or pleural effusions. IMPRESSION No appreciable interval change. Unchange d position of the central venous catheters, as above. Thank you for letting us participate in the care of this patient. If you are a health care provider and have any questi ons regarding this report, please contact the number below. For patients w ho have questions please contact the health resident care associate that requested your imaging first. Jayme Armstrong MD IMG DX ORDERABLES CENTRAL LINE (02/07/2022 12:52 PM EDT) Narrative Rogers Solano APRN - 02/07/2022 1 2:52 PM EDT Rogers Solano APRN ? 02/07/2022 12:56 PM Central Line Placement Procedure Note Items highlighted in red are State Repor karina items for central line compliance documentation. Procedure Diagnosis: Rhabdomyolysis lead ing to acute renal failure requiring CRRT Risks and Benefits reviewed: yes. Informed Consent obtained: yes Reason for insertion: new central line - re-wire of existing trialysis cathereter Time out performed and documented: yes Hand Hygiene performed: Yes Skin prepped with: chlorhexidine ?? Skin prep agent completely dry at time o f first puncture: yes Sterile drape: ??large sterile drape use d Mask/eye shield: ??mask/eye shield used Large sterile gown: ??large sterile gown used Sterile gloves: ??sterile gloves used Cap worn: ??cap worn Ultrasound guidance used for insertion: Yes Kit type used: ??An 18 Ga. X 2.5 inch ne edle was placed in vein after blood return identified. Guided by a 0.035 inch diameter guide wire, a 3 ??lumen, 15 ??cm cathete r was inserted using the Seldinger Technique. Catheter type: CVL Tunneled/Non Tunneled: non tunneled Insertion Site: jugular (internal) Insertion Side: right Number of attempts: 1 Insertion successful: Yes Catheter sutured at the skin at: 15 cm . Sterile dressing: Chlorhexidine Tegaderm Findings: Patient tolerated procedure we ll., Blood returned appropriately., Wire confirmed with ultr asound guidance upon removal of previous trialysis line and p rior to insertion of new trialysis catheter Complications: No Complications. Chest X-ray ordered: yes Patient location at time of insertion: I [facility] [address] [place] APRN [place] Solano APRN PROCEDURE/MINOR SURGICAL ORD ERABLES (ABNORMAL) Platelet count (02/07/2022 2:10 AM EDT)Only the most recent of8 resultswithin the time period is included. athologist Signature Platelets 128 (L) 145 - 357 JOSH GILMORE x10(3)/[facility] LABORATORY Plat Immature 7.0 0.0 - 7.4 JOSH IGLMORE % % [facility] Comment: Limitation of the Immature Platelet Frac tion (IPF)-May be less reliable when the platelet count is less than 50m493/u L due to statistical imprecision. The IPF value provides an assessment of the Bone Marrow production status. ??It is useful in differentiating Thrombocyto penia caused by platelet destruction/consumption versus decreased production. It also helps to determine the imminent release of platelets and ca n be therefore a helpful parameter in Chemotherapy and Bone marrow transplant patients. ELEVATED IPF value: ?? When the bone marrow is in a state of over production such as when increased destruction and consumption are the unde rlying issue. ?? When the marrow is recovering post ch emotherapy or bone marrow transplant. LOW to NORMAL IPF value: ?? When the bone marrow in not respondin g and is in a decreased state of production. References: [employer] The Clinical Value of the Immature Platelet Fraction (IPF) in Cell Recovery Document Number [id number] 12/2010 [employer] The Role of the Imm ature Platelet Fraction (IPF) in the Differential Diagnosis of Thrombocytopen ia, Document [id number] V05 P0514 Specimen Anatomical Collection Method Collection Time Receive d Time (Source) Location / / Volume Laterality Blood 02/07/2022 2:10 AM 2 2:19 EDT AM EDT Resulting Agency Comment Spec In Lab Collette ELLIS HEMATOLOGY ORDERABLES Performing Organization Address City/State/[place] [address] (ABNORMAL) Hemoglobin (02/07/2022 2:10 AM EDT)Only the most recent of10 results within the time period is included. athologist Signature Hemoglobin 7.2 (L) 13.7 - 16.5 JOSH GILMORE g/dL [facility] Specimen Anatomical Collection Method Collection Time Receive d Time (Source) Location / / Volume Laterality Blood 02/07/2022 2:10 AM 2 2:19 EDT AM EDT Resulting Agency Comment Spec In Lab Collette ELLIS HEMATOLOGY ORDERABLES Performing Organization Address City/[facility]/[place] [address] (ABNORMAL) Hematocrit (02/07/2022 2:10 AM EDT)Only the most recent of8 results within the time period is included. P athologist Signature Hematocrit 19.8 (L) 40.5 - JOSH GILMORE 48.5 % [facility] Specimen Anatomical Collection Method Collection Time Receive d Time (Source) Location / / Volume Laterality Blood 02/07/2022 2:10 AM 2 2:19 EDT AM EDT Resulting Agency Comment Spec In Lab Collette ELLIS HEMATOLOGY ORDERABLES Performing Organization Address City/[facility]/[place] [address] IR Arteriogram Lower Extremity (02/06/2022 3:34 PM EDT) Anatomical Region Laterality Modality X-Ray Angiography Specimen (Source) Anatomical Location Collection Method / Collectio n Time Received Time / Laterality Volume Impressions 02/08/2022 3:14 PM EDT 1. 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 2. ??Empiric Gelfoam embolization of lisa p femoral artery branches 3. ??Empiric Gelfoam and coil embolizati on of superficial LEFT circumflex iliac artery. 4. ??Empiric Gelfoam embolization of LEF T internal iliac gluteal arterial branches. 5. ??Embolization of actively bleeding b ranch of the LEFT superior gluteal artery. Plan: 1. Transfer back to ICU 2. Flat for 2 hours, following Right BAR GAUGER AND LUBRICATOR TENDER Mynx closure deployment 3. Monitor for Right groin hematoma and bleeding. 4. IR will continue to follow, call for any questions or concerns. PROCEDURE SUMMARY: - Arterial access with ultrasound boaz ce - Internal iliac angiography: Unilateral - External iliac angiography: Unilateral - Superselective angiography: Performed as described below - Additional procedure(s): None PROCEDURE DETAILS: Pre-procedure Consent: Informed consent for the proced ure including risks, benefits and alternatives was obtained and time-out w as performed prior to the procedure. Preparation: The site was prepared and d raped using maximal sterile barrier technique including cutaneous antisepsis . Anesthesia/sedation Level of anesthesia/sedation: General an esthesia Anesthesia/sedation administered by: [facility] Total intra-service sedation time (minut es): Please refer to anesthesia notes for further details. Access Local anesthesia was administered. The v essel was sonographically evaluated and judged to be patent. Real time ultrasoun d was used to visualize needle entry into the vessel and a permanent image wa s stored. A 5 Ukrainian sheath was placed. Vessel accessed: Right common femoral ar timo Access technique: Micropuncture set with 21 gauge needle Left pelvic angiography The left pelvic arterial system was cath eterized using a 150 cm 0.035 3J guidewire, 5 Ukrainian Berenstein catheter, 3 Ukrainian renegade STC microcatheter and wire. Vessel catheterized: Common iliac artery . Findings: Angiography not performed Vessel catheterized: External iliac silas ry. Findings: Patent distal external iliac a rtery. No active extravasation from the deep circumflex iliac territory. The com mon femoral artery and proximal visualized deep and superficial femoral arteries are widely patent. Vessel catheterized: Lateral superficial circumflex femoral artery Findings: Vessel irregularity and delaye d contrast staining. Gelfoam and coils deployed. Vessel catheterized: Profunda femoris ar timo Findings: Tapering of distal branch silas zuleyka. Gelfoam deployed. Vessel catheterized: LEFT internal iliac artery Findings: Patent mid and distal branches with abnormal blush of contrast in the region of the LEFT fasciotomy as well as active extravasation and pseudoaneurysm in the region of a branch of the superio r gluteal artery Vessel catheterized: Branch of the LEFT superior gluteal artery. Findings: Active extravasation/pseudoane urysm. Gelfoam and coils deployed. Embolization Catheter position for embolization #1: L EFT Deep femoral artery - Embolic(s): Gelfoam slurry - Angiographic endpoint: Slowed flow (co ntrast visible for fewer than 5 heartbeats) Catheter position for embolization #2: L EFT superficial circumflex iliac artery - Embolic(s): Gelfoam slurry and x2 2 x 5 mm figure 8 coil - Angiographic endpoint: Complete stasis (static contrast column for at least 5 heartbeats) Catheter position for embolization #3: B ranch of the LEFT superior gluteal artery - Embolic(s): 2 x 5 mm figure 8 coil, 4 mm complex helical coil, 4 mm vortex coil - Angiographic endpoint: Complete stasis (static contrast column for at least 5 heartbeats) Catheter position for embolization #4: L EFT Internal iliac artery - Embolic(s): Gelfoam slurry - Angiographic endpoint: Near-stasis (no t static, but contrast visible for at least 5 heartbeats) Closure Access site angiography performed: Yes Findings: Patent vessel with appropriate access level Arterial closure technique: Mynx Hemostasis achieved from closure techniq ue: Yes Duration of manual compression (minutes) : 5 Contrast Contrast agent: Omnipaque 350 Contrast volume (mL): 100 Radiation Dose Fluoroscopy time (minutes): 24.5 Reference air kerma (mGy): 549 Kerma area product (Gy-cm2): 65.5 Additional Details Additional description of procedure: Non e Equipment details: None Specimens removed: None Estimated blood loss (mL): 11-50 Standardized report: [email or web address] Attestation Signer name: Nicole Vivas MD I attest that I was present and scrubbed for the entire procedure. I reviewed the stored images and agree with the rep ort as written. Sedation attestation: N/A I have personally reviewed the image(s) and the resident's interpretation and agree with the findings, Nicole davenport MD at 02/08/2022 3:14 PM Thank you for letting us participate in the care of this patient. ??If you are a health care provider and have any questi ons regarding this report, please contact the number below. ??For patients who have questions please contact the health resident care associate that requested your imaging first. ? Narrative 02/08/2022 3:14 PM EDT PROCEDURE: Pelvic angiography Procedural Personnel Attending physician(s): Nicole Vivas MD Fellow physician(s): None Resident physician(s): Garret Jeter DO Advanced practice provider(s): None Pre-procedure diagnosis: hemorrhagic rosanne ck following Left thigh fasciotomy. Post-procedure diagnosis: Same Indication: Continued hemorrhage from le ft thigh wound refractory to transfusions. Additional clinical history: Left thigh fasciotomy with multiple unsuccessful OR takeback's Complications: No immediate complication s. Procedure Note Nicole Vivas MD - 02/08/2022Form atting of this note might be different from the original. PROCEDURE: Pelvic angiography Procedural Personnel Attending physician(s): Nicole Vivas MD Fellow physician(s): None Resident physician(s): Garret Jeter DO Advanced practice provider(s): None Pre-procedure diagnosis: hemorrhagic rosanne ck following Left thigh fasciotomy. Post-procedure diagnosis: Same Indication: Continued hemorrhage from le ft thigh wound refractory to transfusions. Additional clinical history: Left thigh fasciotomy with multiple unsuccessful OR takeback's Complications: No immediate complication s. IMPRESSION 1. Left pelvic and lower extremity diagn ostic angiography showed active extravasation/pseudoaneurysm from a bran ch of the superior gluteal artery. 2. Empiric Gelfoam embolization of deep femoral artery branches 3. Empiric Gelfoam and coil embolization of superficial LEFT circumflex iliac artery. 4. Empiric Gelfoam embolization of LEFT internal iliac gluteal arterial branches. 5. Embolization of actively bleeding bra nch of the LEFT superior gluteal artery. Plan: 1. Transfer back to ICU 2. Flat for 2 hours, following Right BAR GAUGER AND LUBRICATOR TENDER Mynx closure deployment 3. Monitor for Right groin hematoma and bleeding. 4. IR will continue to follow, call for any questions or concerns. PROCEDURE SUMMARY: - Arterial access with ultrasound boaz ce - Internal iliac angiography: Unilateral - External iliac angiography: Unilateral - Superselective angiography: Performed as described below - Additional procedure(s): None PROCEDURE DETAILS: Pre-procedure Consent: Informed consent for the proced ure including risks, benefits and alternatives was obtained and time-out w as performed prior to the procedure. Preparation: The site was prepared and d raped using maximal sterile barrier technique including cutaneous antisepsis . Anesthesia/sedation Level of anesthesia/sedation: General an esthesia Anesthesia/sedation administered by: Kahtryn carolinas [facility] Total intra-service sedation time (minut es): Please refer to anesthesia notes for further details. Access Local anesthesia was administered. The v essel was sonographically evaluated and judged to be patent. Real time ultrasoun d was used to visualize needle entry into the vessel and a permanent image wa s stored. A 5 Ukrainian sheath was placed. Vessel accessed: Right common femoral ar timo Access technique: Micropuncture set with 21 gauge needle Left pelvic angiography The left pelvic arterial system was cath eterized using a 150 cm 0.035 3J guidewire, 5 Ukrainian Berenstein catheter, 3 Ukrainian renegade STC microcatheter and wire. Vessel catheterized: Common iliac artery . Findings: Angiography not performed Vessel catheterized: External iliac silas ry. Findings: Patent distal external iliac a rtery. No active extravasation from the deep circumflex iliac territory. The com mon femoral artery and proximal visualized deep and superficial femoral arteries are widely patent. Vessel catheterized: Lateral superficial circumflex femoral artery Findings: Vessel irregularity and delaye d contrast staining. Gelfoam and coils deployed. Vessel catheterized: Profunda femoris ar timo Findings: Tapering of distal branch silas zuleyka. Gelfoam deployed. Vessel catheterized: LEFT internal iliac artery Findings: Patent mid and distal branches with abnormal blush of contrast in the region of the LEFT fasciotomy as well as active extravasation and pseudoaneurysm in the region of a branch of the superio r gluteal artery Vessel catheterized: Branch of the LEFT superior gluteal artery. Findings: Active extravasation/pseudoane urysm. Gelfoam and coils deployed. Embolization Catheter position for embolization #1: L EFT Deep femoral artery - Embolic(s): Gelfoam slurry - Angiographic endpoint: Slowed flow (co ntrast visible for fewer than 5 heartbeats) Catheter position for embolization #2: L EFT superficial circumflex iliac artery - Embolic(s): Gelfoam slurry and x2 2 x 5 mm figure 8 coil - Angiographic endpoint: Complete stasis (static contrast column for at least 5 heartbeats) Catheter position for embolization #3: B ranch of the LEFT superior gluteal artery - Embolic(s): 2 x 5 mm figure 8 coil, 4 mm complex helical coil, 4 mm vortex coil - Angiographic endpoint: Complete stasis (static contrast column for at least 5 heartbeats) Catheter position for embolization #4: L EFT Internal iliac artery - Embolic(s): Gelfoam slurry - Angiographic endpoint: Near-stasis (no t static, but contrast visible for at least 5 heartbeats) Closure Access site angiography performed: Yes Findings: Patent vessel with appropriate access level Arterial closure technique: Mynx Hemostasis achieved from closure techniq ue: Yes Duration of manual compression (minutes) : 5 Contrast Contrast agent: Omnipaque 350 Contrast volume (mL): 100 Radiation Dose Fluoroscopy time (minutes): 24.5 Reference air kerma (mGy): 549 Kerma area product (Gy-cm2): 65.5 Additional Details Additional description of procedure: Non e Equipment details: None Specimens removed: None Estimated blood loss (mL): 11-50 Standardized report: [email or web address] Attestation Signer name: Nicole Vivas MD I attest that I was present and scrubbed for the entire procedure. I reviewed the stored images and agree with the rep ort as written. Sedation attestation: N/A I have personally reviewed the image(s) and the resident's interpretation and agree with the findings, Nicole davenport MD at 02/08/2022 3:14 PM Thank you for letting us participate in the care of this patient. If you are a health care provider and have any questi ons regarding this report, please contact the number below. For patients w ho have questions please contact the health resident care associate that requested your imaging first. Jeanette Escamilla APRN IMG IR ORDERABLES (ABNORMAL) Creatinine (02/06/2022 9:00 AM EDT)Only the most recent of7 results within the time period is included. Analysis Performed At Patho logist Time Signature Creatinine 4.64 (H) 0.80 - [facility] [place] 1.50 mg/dL [facility] Estimated GFR 16 (L) >=60 JOSH GILMORE mL/min/1.[address]?? [facility] Comment: This patient's estimated GFR was calcula karina using the 2020 CKD-EPI equation. The estimated GFR can vary from the gustavo ured GFR by up to 30% in the absence of rapidly changing kidney function. Assess ment of the estimated GFR is not appropriate when creatinine concentratio ns are rapidly changing. For clinical situations in which a more precise estim ate of GFR is necessary, consider alternative methods of GFR estimation nicole ch as a 24-hour urine creatinine clearance. Assignment of CKD stage 1-5 for patients with an eGFR near the transition point between stages may be based on clinical assessment of muscle mass and symptoms in addition to eGFR. Specimen Anatomical Collection Method Collection Time Receive d Time (Source) Location / / Volume Laterality Blood 02/06/2022 9:00 AM 2 9:04 EDT AM EDT Resulting Agency Comment Spec In Lab Angelina Reynoso MD CHEMISTRY ORDERABLES Performing Organization Address City/State/[place] [address] (ABNORMAL) BUN (02/06/2022 9:00 AM EDT)Only the most recent of3 resultswithin the time period is included. P athologist Signature BUN 44 (H) 10 - 20 JOSH MANDO mg/dL [facility] Specimen Anatomical Collection Method Collection Time Receive d Time (Source) Location / / Volume Laterality Blood 02/06/2022 9:00 AM 2 9:04 EDT AM EDT Resulting Agency Comment Spec In Lab Angelina Reynoso MD CHEMISTRY ORDERABLES Performing Organization Address City/State/ZIP Code [place], [place] [address] (ABNORMAL) BLOOD GAS 2 VENOUS (02/06/2022 6:19 AM EDT)Only the most recent of10 resultswithin the time period is included. P athologist Signature pH Honorio 7.40 7.32 - [facility] 7.42 [facility] pCO2 Honorio 40 (L) 41 - 51 [facility] LABORATORY pO2 Honorio 31 25 - 40 [facility] LABORATORY HCO3 Honorio 24.2 mmol/L [facility] BE Honorio -0.5 mmol/L [facility] Hgb Blood Gas 8.2 (L) 13.7 - [facility] 16.5 g/dL [facility] O2HB Honorio 65.2 % [facility] COHB Honorio 1.0 % [facility] Comment: Nonsmokers: 0.5-1.5% COHB Smokers: Variable, but usually less than 10% Toxic: 20-30% COHB Lethal: Greater than 60% COHB METHB Honorio 0.9 <=1.5 % [facility] Na Whole Blood 117 (Critical) 135 - 145 mmol/L [facility] Comment: Noted by instrument adjuster. K Whole Blood 5.2 (H) 3.5 - 5.0 mmol/L [facility] Comment: Please note: Patients with WBC >100,000 may have falsely elevated Potassium levels. Contact the Clinical Chemistry L aboratory if there are any questions. ICa Whole Blood 0.96 (L) 1.15 - 1.33 mmol/L [facility] Comment: Note: ??Total bilirubin higher than 20 m g/dL may lead to falsely low ionized calcium. CL Whole Blood 91 (L) 98 - 107 mmol/L [facility] Gluc Whole Bld 113 65 - 199 mg/dL [facility] Comment: Diabetes: >=200 mg/dL plus symp toms Lactate WB 1.3 0.5 - 2.2 mmol/L JOSH HAQUE [facility] BGas Source Venous J[facility] GILMORE [facility] Specimen Anatomical Collection Method Collection Time Receive d Time (Source) Location / / Volume Laterality Blood 02/06/2022 6:19 AM 2 6:19 EDT AM EDT Dunia Han DO CHEMISTRY ORDERABLES Performing Organization Address City/[facility]/[place] [address] Blood culture (02/06/2022 6:00 AM EDT)Only the most recent of7 resultswithin the time period is included. [facility] gist Method Time Signature Blood Culture No growth JOSH GILMORE at 5 days. [facility] Specimen Anatomical Collection Method Collection Time Receive d Time (Source) Location / / Volume Laterality Blood 02/06/2022 6:00 AM 2 7:28 EDT AM EDT Resulting Agency Comment Spec In Lab Dunia Han DO MICROBIOLOGY - BLOOD ORDE RABLES Performing Organization Address City/State/ZIP Code Phon e Number [place] [id number] Insert Arterial Line (02/06/2022 5:58 AM EDT) Narrative Collette Rivas PA - 02/06/2022 5:5 8 AM EDT Collette Rivas PA ? 02/06/2022 ??6:15 AM Arterial Line Placement Procedure Note Indication for Procedure: Arterial line was placed for invasive blood pressure monitoring, arterial bloo d gases and blood sampling for laboratory test. Procedure Diagnosis: Hemorrhagic Shock Location of Procedure: Critical Care. Risks and Benefits: The risks and benefi ts of this procedure were reviewed and verbal consent was obtained . ?? Time Out: Prior to the start of the proc edure, the patient's identity, intended procedure, site/side, correct patient positioning and presence of the site mar k was confirmed as applicable. The medical history and drake t were reviewed to rule out potential contraindications to the p lanned procedure. ?? Hand Hygiene: The heel molder did perform h and hygiene prior to arterial line insertion. Procedure Prep: Sterile draping was appl ied. Skin was prepped with chlorhexidine. 5 ml of 1% Lidocaine was used for local anesthesia. Procedure Details: A 18 gauge, 12 cm cat heter was placed in the right femoral artery and secured with nicole ture. Ultrasound was used for guidance. Guide wire was used in thi s procedure. The guide wire had a diameter of .018 inches. Ther e was 1 attempt. ?? Findings: There were no procedure compli cations. Blood was drawn with ease. Good wave form. Procedure Comments: N/A Dunia Han DO PROCEDURE/MINOR SURGICAL ORDERABLES Transfuse thawed plasma (02/05/2022 11:56 PM EDT)Only the most recent of2 resultswithin the time period is included. Dunia Han DO NURSING TREATMENT ORDERAB LES - BLOOD ADMIN (ABNORMAL) Hepatic Function Panel (02/05/2022 9:54 PM EDT)Only the most recent of7 resultswithin the time period is included. P athologist Signature Total Protein 3.2 (L) 6.1 - 8.0 [facility] MAND[facility] g/dL [facility] Albumin 1.4 (L) 3.2 - 5.2 JOSH MANDO g/dL [facility] AST 21 0 - 39 JOS[facility] MAND[place] unit/L [facility] ALT <5 0 - 55 JOSH MANDO unit/L [facility] Alk Phos 74 40 - 130 [facility] M[facility] unit/L [facility] Total 0.4 0.2 - 1.3 JOSH MANDO Bilirubin mg/dL [facility] Bili, Direct 0.3 0.0 - 0.3 [facility] MAND[facility] mg/dL [facility] Specimen Anatomical Collection Method Collection Time Receive d Time (Source) Location / / Volume Laterality Blood 02/05/2022 9:54 PM 2 EDT 10:31 PM EDT Resulting Agency Comment Spec In Lab Dunia Han DO CHEMISTRY ORDERABLES Performing Organization Address City/State/[place] [address] Prepare thawed plasma (02/05/2022 9:10 PM EDT) P athologist Signature Dispensed? Yes [facility] H[facility]PITAL LAB[facility]ATORY Specimen Anatomical Collection Method Collection Time Receive d Time (Source) Location / / Volume Laterality Blood 02/05/2022 9:10 PM 2 9:08 EDT PM EDT Dilcia Villatoro MD BLOOD BANK ORDERABLES Performing Organization Address [facility]/[place]IP [facility] [place] [address] Trichomonas Gene Amp ([facility]/CGP/APD/[facility]H) Urine (02/04/2022 4:20 PM EDT) Analysis Performed At Patho logist Doon Signature Trich Gene Amp Negative Negative [facility] Comment: The only FDA approved specimen types for this assay are cervix and vaginal. Trich Source Urine [facility] LABORATORY Specimen Anatomical Collection Method Collection Time Receive d Time (Source) Location / / Volume Laterality Urine 02/04/2022 4:20 PM 2 5:03 EDT PM EDT Resulting Agency Comment Spec In Lab Dilcia Villatoro MD MICROBIOLOGY - GENERAL ORDER JT Performing Organization Address [facility] Phon e [address] Chlamydia Gene Amp ([facility]/CGP/APD/NLH) Urine (02/04/2022 4:20 PM EDT) Analysis Performed At Patho logist Time Signature Chlamydia Gene Negative Negative [facility] LABORATORY Comment: The only FDA approved specimen types for this assay are cervical, vaginal, urethral and urine. Non-FDA approved myriam rces are eye, throat and rectal and have been internally validated. Chlamydia Source Urine [facility] LABORATORY Specimen Anatomical Collection Method Collection Time Receive d Time (Source) Location / / Volume Laterality Urine 02/04/2022 4:20 PM 2 5:03 EDT PM EDT Resulting Agency Comment Spec In Lab Dilcia Villatoro MD MICROBIOLOGY - GENERAL ORDER JT Performing Organization Address City/[facility]/ZIP Code Phon e Number [place] [phone] HOSPITAL LABORATORY [address] GC Gene Amp ([facility]/CGP/APD/NLH) Urine (02/04/2022 4:20 PM EDT) athologist Signature GC Gene Amp Negative Negative [facility] Comment: The only FDA approved specimen types for this assay are cervical, vaginal, urethral and urine. Non-FDA approved myriam rces are eye, throat and rectal and have been internally validated. GC Source Urine [facility] LABORATORY Specimen Anatomical Collection Method Collection Time Receive d Time (Source) Location / / Volume Laterality Urine 02/04/2022 4:20 PM 2 5:03 EDT PM EDT Resulting Agency Comment Spec In Lab Dilcia Villatoro MD MICROBIOLOGY - GENERAL ORDER JT Performing Organization Address City/[facility]/ZIP Code Phon e Number [address] EKG 12 Lead (02/04/2022 6:17 AM EDT)Only the most recent of3 resultswithin the time period is included. Component Value Ref Range Test Analysis Performed Pathologis t Method Time At [facility] Ventricular rate 99 BPM MUSE SYSTEM Atrial Rate 99 BPM MUSE SYSTEM P-R Interval 146 ms MUSE SYSTEM QRS Duration 96 ms MUSE SYSTEM Q-T Interval 336 ms MUSE SYSTEM QTC Calculated 431 ms MUSE SYSTEM (Bezet) Calculated P [place] 37 degrees MUSE SYSTEM Calculated R [place] 16 degrees MUSE SYSTEM Calculated T [place] 14 degrees MUSE SYSTEM INTERPRETATION Normal sinus rhythm MUSE SYSTEM Normal ECG When compared with ECG of 30-JAN-2022 09:18, Nonspecific T wave abnormality, improved in Inferior leads Confirmed by Tucker Beard ([id number]) on 02/04/2022 5:25:0 4 PM Specimen Anatomical Collection Method Collection Time Receive d Time (Source) Location / / Volume Laterality 02/04/2022 6:17 AM 2 5:25 EDT PM EDT Candida Krishna MD ECG ORDERABLES Performing Organization Address City/[facility]/ZIP Code Phon e Number MUSE SYSTEM Duplex Study for DVT, Bilat legs (02/03/2022 9:07 AM EDT) Component Value Ref Test Analysis Performed At Patholo gist Range Method Time Signature VB Text Department: Vascular Surgery Lab VASCUBASE Report Patient: [id number] (ERIC HOLLAND) CPT: [id number] Referring Physician: AGNIESZKA LÓPEZ ?? Phone: Indications: fasciotomies 01/29 and 02/02, fever, and edema, ? D VT Findings: NOTE: limited exam due to pitting edema, patient discomfort/ refusal and fasciotomies. RIGHT: Patent popliteal vein with sponta neous, respirophasic Doppler waveforms that respond normally to augmentation maneuvers. The femoral vein through the thigh and popliteal vein are fully compressible. The commo n femoral vein is patent but was not adequately visualized to exclude non-oc clusive thrombus. Unable to preform common femoral vein compression due to pat ient refusal. Unable to study/visualize posterior tibial and peronea l veins due to pitting edema; cannot rule out thrombus here. LEFT: The common femoral vein, femoral vein through the th igh and popliteal vein are patent but were not adequately visualized to excl ude non-occlusive thrombus. Patient refused compressions and augments on left leg due to pain and discomfort from recent fasciotomy. Unabl e to study/ visualize posterior tibial and peroneal veins due to pitting edema and patient discomfo rt from recent fasciotomy; cannot exclude thrombus here. Interpretation: RIGHT: No evidence of lower extremity deep venous thrombos is in the femoral vein in the thigh and poplit eal vein. The common femoral vein is patent but were not adequately visualized to exclude non-occlusive thrombus. Unable to preform common femoral vein compression due to pat ient refusal. Unable to study/visualize calf veins; cannot rule out thromb us here. LEFT: The common femoral vein, femoral vein through the th igh and popliteal vein are patent but were not adequately visualized to excl ude non-occlusive thrombus. Patient refused compressions and augments on left leg due to pain and discomfort from recent fasci otomy. Unable to study/visualize calf veins; cannot exclude thrombus here. Comparison: ?? No previous study in our vascular lab database for comparison. Electronically Signed by: NAHED BENITES on 2022-02-05 09:01:04 AM VB Text End of Report VASCUBASE Report Specimen (Source) Anatomical Collection Method Collection Time Re ceived Time Location / / Volume Laterality 02/03/2022 9:07 AM EDT Erika Jansen MD VASCULAR ORDERABLES Performing Organization Address City/State/ZIP Code Phon e Number VASCUBASE (ABNORMAL) Hemoglobin and Hematocrit, blood (02/03/2022 6:47 AM EDT) athologist Signature Hemoglobin 5.6 13.7 - JOSH VELASQUEZMANDO (Critical) 16.5 g/dL [facility] Comment: This result has been called to EMANI HESS by Sarah Robison on 02 03 2022 at 0738, and has been read back. Hematocrit 16.0 (L) 40.5 - 48.5 % [facility] Specimen Anatomical Collection Method Collection Time Receive d Time (Source) Location / / Volume Laterality Blood 02/03/2022 6:47 AM 2 7:05 EDT AM EDT Resulting Agency Comment Spec In Lab Raimundo Lara MD HEMATOLOGY ORDERABLES Performing Organization Address City/[facility]/[place] [address] (ABNORMAL) Folate, serum (02/03/2022 4:55 AM EDT) athologist Signature Folate Lvl 3.9 (L) 4.8 - 24.2 [facility] ng/mL [facility] Specimen Anatomical Collection Method Collection Time Receive d Time (Source) Location / / Volume Laterality Blood 02/03/2022 4:55 AM 2 5:09 EDT AM EDT Resulting Agency Comment Spec In Lab Erika Jansen MD CHEMISTRY ORDERABLES Performing Organization Address City/[facility]/[place] [address] Vitamin B12 (02/03/2022 4:55 AM EDT) athologist Signature Vitamin B-12 535 232 - 1,245 [facility] pg/mL [facility] Specimen Anatomical Collection Method Collection Time Receive d Time (Source) Location / / Volume Laterality Blood 02/03/2022 4:55 AM 2 5:09 EDT AM EDT Resulting Agency Comment Spec In Lab Erika Jansen MD CHEMISTRY ORDERABLES Performing Organization Address City/[facility]/[place] [address] (ABNORMAL) C. Difficile Screen (02/01/2022 1:55 PM EDT) [facility] Method Time Signature C Diff Screen Positive (A) Negative [facility] Comment: PCR Pos C. diff?? Positive (GDH positive, toxin antigen negative, toxin PCR positive) DNA from a toxigenic strain of C. diffic ile was detected, although the free toxin itself was not detected.?? These r esults cannot distinguish between colonization and infection. They must be interpreted within the patient? s overall clinical context. Consider other causes for diarrhea or the presence of a non-toxigenic strain. Patient needs to remain on Soap & Water Contact Precautions until discharge or approval by Infection Prevention. Specimen Anatomical Collection Method Collection Time Receive d Time (Source) Location / / Volume Laterality Stool 02/01/2022 1:55 PM 2:53 EDT PM EDT Resulting Agency Comment Spec In Lab Jorge L Ernst APRN MICROBIOLOGY - GENERAL ORDER JT Performing Organization Address [facility]/[place] [address] Chest Abdomen Pelvis w Contrast (Generic) (01/30/2022 12:50 PM EDT) Anatomical Region Laterality Modality Abdomen, Pelvis Computed Tomography Specimen (Source) Anatomical Collection Method Collection Time Re ceived Time Location / / Volume Laterality 01/30/2022 1:06 PM EDT Impressions 01/30/2022 3:20 PM EDT 1. A 7.5 x 2.7 cm hypodense lesion in th e left gluteus medius with subtle rim enhancement, likely represents postopera tive changes status post excisional debridement of the left gluteus medius. However, an abscess cannot be excluded. Recommend attention on follow-up. 2. Diffuse anasarca. 3. Hepatomegaly. I Balaji Queen MD discussed impressio n #1 with Agnieszka López APRN on 01/30/2022 2:56 PM. Preliminary report signed by: Balaji pena at 01/30/2022 3:03 PM I have personally reviewed the image(s) and the resident's interpretation and agree with the findings, Melita Mills MD at 01/30/2022 3:20 PM Thank you for letting us participate in the care of this patient. ??If you are a health care provider and have any questi ons regarding this report, please contact the number below. ??For patients who have questions please contact the health resident care associate that requested your imaging first. ? Narrative 01/30/2022 3:20 PM EDT EXAMINATION: CT CHEST ABDOMEN PELVIS W CONTRAST (GENERIC) CLINICAL HISTORY: Sepsis - Include more detail below Worsening leukocytosis without obvious s ource, wounds recently washed out yesterday with no concern for infection. Looking for source of infection. TECHNIQUE: Helical CT of the chest, abdo men, and pelvis was performed following the intravenous administration of contra st. Administered 114.0 ml of OMNIPAQUE 350.00 mg/ml. Oral contrast was administ ered. COMPARISON: CT chest 01/23/2022 CT lower extremity 01/23/2022 FINDINGS: Chest: Lungs and large airways: Mild bilateral dependent atelectasis. The central airways are patent. Pleura: No pleural effusion or pneumotho rax. Heart/vasculature: Right IJ central veno us line with catheter tip at the lower SVC. Left IJ central venous line with ca theter tip in the mid SVC. The heart is normal in size and without pericardial e ffusion. Lymph nodes: No enlarged lymph nodes. Mediastinum and kolton: Normal. Abdomen/pelvis: Liver: Hepatomegaly, measuring 20.9 cm i n the craniocaudal dimension. Normal attenuation without lesions. Bile ducts: Nondilated. Gallbladder: No calcified gallstones. No rmal caliber wall. Pancreas: Normal attenuation without yayo lg dilatation. Spleen: Normal. Adrenals: Normal. Kidneys: Normal. Urinary Bladder: The bladder is decompre ssed with a Travis catheter in place. Trace nondependent gas within the lumen, likely secondary to instrumentation. Vasculature: Normal course and caliber o f the abdominal aorta. The hepatic and portal veins are patent. Lymph Nodes: ??No enlarged lymph nodes. Bowel: Nondilated, no wall thickening. T he appendix is normal. Peritoneum and mesentery: No ascites, fr ee air, or loculated fluid collection. No mesenteric inflammation. Abdominal wall: Diffuse anasarca. Reproductive organs: Normal. Osseous structures/soft tissues: In the left gluteus medius, there is a 7.5 x 2.7 cm hypodense lesion with subtle rim enhancement (series 3 image 144). Procedure Note Melita Mills MD - 01/30/2022Formatt ing of this note might be different from the original. EXAMINATION: CT CHEST ABDOMEN PELVIS W C ONTRAST (GENERIC) CLINICAL HISTORY: Sepsis - Include more detail below Worsening leukocytosis without obvious s ource, wounds recently washed out yesterday with no concern for infection. Looking for source of infection. TECHNIQUE: Helical CT of the chest, abdo men, and pelvis was performed following the intravenous administration of contra st. Administered 114.0 ml of OMNIPAQUE 350.00 mg/ml. Oral contrast was administ ered. COMPARISON: CT chest 01/23/2022 CT lower extremity 01/23/2022 FINDINGS: Chest: Lungs and large airways: Mild bilateral dependent atelectasis. The central airways are patent. Pleura: No pleural effusion or pneumotho rax. Heart/vasculature: Right IJ central veno us line with catheter tip at the lower SVC. Left IJ central venous line with ca theter tip in the mid SVC. The heart is normal in size and without pericardial e ffusion. Lymph nodes: No enlarged lymph nodes. Mediastinum and kolton: Normal. Abdomen/pelvis: Liver: Hepatomegaly, measuring 20.9 cm i n the craniocaudal dimension. Normal attenuation without lesions. Bile ducts: Nondilated. Gallbladder: No calcified gallstones. No rmal caliber wall. Pancreas: Normal attenuation without yayo lg dilatation. Spleen: Normal. Adrenals: Normal. Kidneys: Normal. Urinary Bladder: The bladder is decompre ssed with a Travis catheter in place. Trace nondependent gas within the lumen, likely secondary to instrumentation. Vasculature: Normal course and caliber o f the abdominal aorta. The hepatic and portal veins are patent. Lymph Nodes: No enlarged lymph nodes. Bowel: Nondilated, no wall thickening. T he appendix is normal. Peritoneum and mesentery: No ascites, fr ee air, or loculated fluid collection. No mesenteric inflammation. Abdominal wall: Diffuse anasarca. Reproductive organs: Normal. Osseous structures/soft tissues: In the left gluteus medius, there is a 7.5 x 2.7 cm hypodense lesion with subtle rim enhancement (series 3 image 144). IMPRESSION 1. A 7.5 x 2.7 cm hypodense lesion in th e left gluteus medius with subtle rim enhancement, likely represents postopera tive changes status post excisional debridement of the left gluteus medius. However, an abscess cannot be excluded. Recommend attention on follow-up. 2. Diffuse anasarca. 3. Hepatomegaly. I Balaji Queen MD discussed impressio n #1 with Agnieszka López APRN on 01/30/2022 2:56 PM. Preliminary report signed by: Balaji pena at 01/30/2022 3:03 PM I have personally reviewed the image(s) and the resident's interpretation and agree with the findings, Melita Mills MD at 01/30/2022 3:20 PM Thank you for letting us participate in the care of this patient. If you are a health care provider and have any questi ons regarding this report, please contact the number below. For patients w ho have questions please contact the health resident care associate that requested your imaging first. Agnieszka López APRN IMG CT ORDERABLES (ABNORMAL) Blood Gas Venous ([facility]) (01/30/2022 4:10 AM EDT)Only the most recent of8 resultswithin the time period is included. Analysis Performed At Patho logist Time Signature pH Honorio 7.43 (H) 7.32 - [facility] 7.42 [facility] pCO2 Honorio 34 (L) 41 - 51 [facility] LABORATORY pO2 Honorio 35 25 - 40 [facility] LABORATORY HCO3 Honorio 22.2 mmol/L [facility] BE Honorio -2.2 mmol/L [facility] Hgb Blood Gas 11.6 (L) 13.7 - [facility] 16.5 g/dL [facility] O2HB Honorio 72.9 % [facility] COHB Honorio 1.0 % [facility] Comment: Nonsmokers: 0.5-1.5% COHB Smokers: Variable, but usually less than 10% Toxic: 20-30% COHB Lethal: Greater than 60% COHB METHB Honorio 0.3 <=1.5 % [facility] Na Whole Blood 123 (L) 135 - 145 mmol/L [facility] K Whole Blood 5.1 (H) 3.5 - 5.0 mmol/L [facility] Comment: Please note: Patients with WBC >100,000 may have falsely elevated Potassium levels. Contact the Clinical Chemistry L aboratory if there are any questions. ICa Whole Blood 1.05 (L) 1.15 - 1.33 mmol/L [facility] Comment: Note: ??Total bilirubin higher than 20 m g/dL may lead to falsely low ionized calcium. CL Whole Blood 97 (L) 98 - 107 mmol/L [facility] Gluc Whole Bld 142 65 - 199 mg/dL [facility] Comment: Diabetes: >=200 mg/dL plus symp toms Lactate WB 1.2 0.5 - 2.2 mmol/L [facility] BGas Source Venous [facility] Specimen Anatomical Collection Method Collection Time Receive d Time (Source) Location / / Volume Laterality Blood Venous Draw / 01/30/2022 4:10 AM 01/31/20 22 4:31 Unknown EDT AM EDT Resulting Agency Comment Spec In Lab Angelina Reynoso MD CHEMISTRY ORDERABLES Performing Organization Address City/State/ZIP Code Phon e Number [address] (ABNORMAL) CK (01/30/2022 4:10 AM EDT)Only the most recent of22 resultswithin the time period is included. P athologist Signature CK, Total 5,685 (H) 0 - 200 [facility] LABORATORY Specimen Anatomical Collection Method Collection Time Receive d Time (Source) Location / / Volume Laterality Blood 01/30/2022 4:10 AM 2 4:36 EDT AM EDT Resulting Agency Comment Spec In Lab Jaquelinashley Sal Hillman APRN CHEMISTRY ORDERABLES Performing Organization Address City/[facility]/[place] [address] (ABNORMAL) _Urinalysis with microscopic (01/28/2022 6:00 AM EDT)Only the most recent of2 resultswithin the time period is included. Patholo gist Method Time Signature Glucose UA 100 (A) Negative [facility] mg/dL [facility] Protein UA >=300 (A) Negative [facility] Bilirubin UA Negative Negative [facility] mg/dL [facility] Comment: Clinical correlation required for positi ve Urine Bilirubin results as false positive may occur with some drugs and d rug related products. If a false positive is suspected a serum total bili villaseñor should be considered if clinically indicated. Urobilinogen UA Normal Normal mg/dL [facility] pH UA 7.5 5.0 - 8.0 [facility] Blood UA Large (A) Negative mg/dL [facility] Ketones UA Negative Negative mg/dL [facility] Nitrite UA Negative Negative [facility] Leukocytes UA Negative Negative [facility] LABORATORY Appearance UA Clear Clear [facility] Spec [place] UA 1.025 1.006 - 1.030 [facility] Color UA Yellow [facility] RBC UA 4 (H) 0 - 3 /HPF [facility] WBC UA 1 0 - 3 /HPF [facility] Bacteria UA Rare (A) None /HPF [facility] Specimen Anatomical Collection Method Collection Time Receive d Time (Source) Location / / Volume Laterality Urine 01/28/2022 6:00 AM 6:40 EDT AM EDT Resulting Agency Comment Spec In Lab Beck Sanz MD URINE ORDERABLES Performing Organization Address City/[facility]/ZIP Code Phon e Number [address] Triglyceride (01/26/2022 12:20 AM EDT)Only the most recent of2 resultswithin the time period is included. athologist Signature Triglycerides 359 mg/dL [facility] Comment: Average Risk/Lower Risk: <150 mg/dL Borderline High Risk: 150-199 mg/dL High Risk: 200-499 mg/dL Very High Risk: >am=979 mg/dL Specimen Anatomical Collection Method Collection Time Receive d Time (Source) Location / / Volume Laterality Blood 01/26/2022 12:20 01/26/2022 AM EDT 12:29 AM EDT Resulting Agency Comment Spec In Lab Beck Sanz MD CHEMISTRY ORDERABLES Performing Organization Address City/[facility]/[place] [address] Angiogram [place] (01/24/2022 11:32 PM EDT) Anatomical Region Laterality Modality Neck, Head Computed Tomography Specimen (Source) Anatomical Location Collection Method / Collectio n Time Received Time / Laterality Volume Impressions 01/25/2022 10:26 AM EDT Normal appearance of the large and medium size arteries of the head and neck Thank you for letting us participate in the care of this patient. ??If you are a health care provider and have any questi ons regarding this report, please contact the number below. ??For patients who have questions please contact the health resident care associate that requested your imaging first. ? Narrative 01/25/2022 10:26 AM EDT EXAMINATION: CT ANGIOGRAM [place], CT ANGIOGRAM CAROTIDS CLINICAL HISTORY: Stroke, follow up TECHNIQUE: Helical CT through the neck a nd head was obtained during the bolus administration of 65 cc Omnipaque 350. 3 -D surface and MIP images were performed. COMPARISON: None FINDINGS: Arch: The proximal great vessels are of normal course and caliber Right carotid: Normal Left carotid: Normal Right vertebral: Normal Left vertebral: Normal Intracranial arteries: The intracranial arteries are of normal course and caliber. There is atelectasis of the upper lungs. Procedure Note Arun Helm MD - 01/25/2022Format ting of this note might be different from the original. EXAMINATION: CT ANGIOGRAM [place], CT ANGIOGRAM CAROTIDS CLINICAL HISTORY: Stroke, follow up TECHNIQUE: Helical CT through the neck a nd head was obtained during the bolus administration of 65 cc Omnipaque 350. 3 -D surface and MIP images were performed. COMPARISON: None FINDINGS: Arch: The proximal great vessels are of normal course and caliber Right carotid: Normal Left carotid: Normal Right vertebral: Normal Left vertebral: Normal Intracranial arteries: The intracranial arteries are of normal course and caliber. There is atelectasis of the upper lungs. IMPRESSION Normal appearance of the large and mediu m size arteries of the head and neck Thank you for letting us participate in the care of this patient. If you are a health care provider and have any questi ons regarding this report, please contact the number below. For patients w ho have questions please contact the health resident care associate that requested your imaging first. Agnieszka López BILL RECAPITULATION CLERK IMG CT ORDERABLES CT Angiogram Carotids (01/24/2022 11:32 PM EDT) Anatomical Region Laterality Modality Neck, Head Computed Tomography Specimen (Source) Anatomical Collection Method Collection Time Re ceived Time Location / / Volume Laterality 01/24/2022 11:27 PM EDT Impressions 01/25/2022 10:26 AM EDT Normal appearance of the large and medium size arteries of the head and neck Thank you for letting us participate in the care of this patient. ??If you are a health care provider and have any questi ons regarding this report, please contact the number below. ??For patients who have questions please contact the health resident care associate that requested your imaging first. ? Narrative 01/25/2022 10:26 AM EDT EXAMINATION: CT ANGIOGRAM [place], [place] ANGIOGRAM CAROT[place] CLINICAL HISTORY: Stroke, follow up TECHNIQUE: Helical CT through the neck a nd head was obtained during the bolus administration of 65 cc Omnipaque 350. 3 -D surface and MIP images were performed. COMPARISON: None FINDINGS: Arch: The proximal great vessels are of normal course and caliber Right carotid: Normal Left carotid: Normal Right vertebral: Normal Left vertebral: Normal Intracranial arteries: The intracranial arteries are of normal course and caliber. There is atelectasis of the upper lungs. Procedure Note Arun Helm MD - 01/25/2022Format ting of this note might be different from the original. EXAMINATION: CT ANGIOGRAM [place], CT ANGIOGRAM CAROTIDS CLINICAL HISTORY: Stroke, follow up TECHNIQUE: Helical CT through the neck a nd head was obtained during the bolus administration of 65 cc Omnipaque 350. 3 -D surface and MIP images were performed. COMPARISON: None FINDINGS: Arch: The proximal great vessels are of normal course and caliber Right carotid: Normal Left carotid: Normal Right vertebral: Normal Left vertebral: Normal Intracranial arteries: The intracranial arteries are of normal course and caliber. There is atelectasis of the upper lungs. IMPRESSION Normal appearance of the large and mediu m size arteries of the head and neck Thank you for letting us participate in the care of this patient. If you are a health care provider and have any questi ons regarding this report, please contact the number below. For patients w ho have questions please contact the health resident care associate that requested your imaging first. Agnieszka López APRN IMG CT ORDERABLES MRSA PCR (01/24/2022 1:10 PM EDT)Only the most recent of3 resultswithin the time period is included. [facility] Method Time Signature MRSA Result Negative Negative [facility] MRSA Interp Negative for methicillin-resistant Staphylococcus aureus (MRSA) [facility] This test was performed using the GeneXpert?? Dx System an d the Xpert MRSA MEMORIAL Assay. The MRSA target DNA was not detec karina. The sample processing control and HOSPITAL probe check were valid. The performance of this test was determined by the [facility] Molecular Pathology Laboratory. It has been maximus red by the U.S. Food and Drug Administration for clinical use. Comment: [VERIFIED DATE]01.25.22 Verified By:Alfonso Soto (Electronic Signature) Specimen (Source) Anatomical Collection Method Collection Time Re ceived Time Location / / Volume Laterality Nasopharyngeal Swab 01/24/2022 1:10 01/25 PM EDT 7:30 AM EDT Resulting Agency Comment Spec In Lab Agnieszka López APRN MICROBIOLOGY - GENERAL ORDER JT Performing Organization Address City/State/ZIP Code [place] [address] ECHOCARDIOGRAM COMPLETE W CONTRAST (01/24/2022 9:30 AM EDT) Anatomical Region Laterality Modality Cardiac Other Specimen (Source) Anatomical Collection Method Collection Time Re ceived Time Location / / Volume Laterality 01/23/2022 12:16 PM EDT Narrative 01/24/2022 11:52 AM EDT ?[facility] ?[address] ? [place] [address] ?Voice: ?Fax: ? Echocardiogram Report Name: ERIC HOLLAND ?Study Date : 01/23/2022 12:16 PM ?BP: 96/65 mmHg ?Patient Location: IC3N IC43 A : 1990 ?Height: 183 cm ? Account: [id number] Age: 31 yrs ?Weigh t: 102 kg Gender: Male ? BSA: 2.2 m2 Ordering Physician: ETHAN HILLMAN Referring Physician: NICOLE LIN Performed By: Milan Pascual RDCS Interpretation Summary Wall thickness is mildly increased. . Le ft ventricular systolic function is mildly reduced. The left ventricular ejection f raction is 46% by Stacy's biplane. Mild global hypokinesis. Right ventricle is mildly dilated. Right ventricular systolic function is mildly decreased. No significant valvular abnormalities. Other details as below. IMPRESSION: Mild global hypokinesis. As compared to the prior echo report from 05/03/2018, the prior LVEF was normal. Procedure Complete-06889. Right ventricular strain . Image enhancement Optison was used for left ventricular opacification. Suboptim al quality. Regular rhythm. Left Ventricle Left ventricle is of normal size. Wall t hickness is mildly increased. There is no left ventiruclar outflow tract obstructi on. There is no ventricular septal defect. Left ventricular systolic function is mi ldly reduced. The left ventricular ejection fraction is 46% by Stacy's bi plane. Mild global hypokinesis. Right Ventricle Right ventricle is mildly dilated. Right ventricular systolic function is mildly decreased. RV free wall strain is abnorm al -16.1%. RV global longitudinal strain - 13.2%. Left Atrium The left atrium is probably normal. No a bnormality of the interatrial septum is identified. Right Atrium The right atrium is normal. Aortic Valve The aortic valve is structurally normal. There is no aortic stenosis. There is no aortic regurgitation. Mitral Valve The mitral valve is structurally normal. There is no mitral stenosis. There is no mitral regurgitation. Tricuspid Valve The tricuspid valve is structurally norm al. There is no tricuspid stenosis. There is trace tricuspid regurgitation. Pulmonic Valve The pulmonic valve appears to be structu rally normal. There is no valvular pulmonic stenosis. There is trace pulmon ic valve regurgitation. Great Arteries The aortic root at the level of the sinu ses of Valsalva is mildly dilated. The left coronary artery originates from the left coronary cusp, and the right coronary artery originates from the righ t coronary cusp. Ascending aorta is normal in size. The main pulmonary artery is of normal size. Venous Inferior vena cava is normal in size. Pa tient is mechanically ventilated. Pericardium/Pleural The pericardium appears normal. Hemodynamics Left ventricular diastolic function is i ndeterminate. The estimated right atrial pressure is 8mmHg. Pulmonary artery hype rtension could not be assessed due to inadequate tricuspid regurgitation jet. Ejection Fraction ?2D Measurem ents ? Volumes LV Biplane EF: 46.4 % ? IVSd: 1.4 cm ?L VIDd: 4.9 cm ?RA A4Cs_phl: 13.0 cm2 ? EDV Biplane: 88.4 ml ?L VIDs: 2.5 cm ?EDV Biplane Index: 39.5 ?L VPWd: 1.3 cm ?ESV Biplane: 47.4 ml ?L V mass(C)d: 258.0 grams ? ESV Biplane Index: 21.2 ?L V mass(C)dI: 115.4 grams/m2 ?? SV(LVOT): 46.9 ml ?A o root diam: 3.8 cm ? LV Stroke Volume: 45.0 ml ?A o root diam index: 1.7 ?a sc Aorta Diam: 2.7 cm ? SI(LVOT): 21.0 ml/m2 ?L VOT diam: 2.4 cm ?T APSE_phl: 1.8 cm Doppler TR max renny: 251.1 cm/sec RVSP(TR): 33.2 mmHg MV E max renny: 37.3 cm/sec MV A max renny: 61.5 cm/sec MV E/A: 0.61 Lat Peak E' Renny: 13.3 cm/sec E/ e' (lat): 2.8 Med Peak E' Renny: 6.5 cm/sec E/e' (med): 5.7 E/e' Average: 4.3 PI end-d renny: 207.7 cm/sec I ?WMSI = 2.00 ? % Normal = 0 ?Segments ??Size X - Cannot ?2 - ?4 - ?1-2 ? small Interpret ?1 - Normal ?? Hypokinetic 3 - Akinetic Dyskinetic ?? 3-5 ? moderate 5 - ? 6-14 ?large Aneurysmal ?15-16 ?? diffuse Procedure Note Yair Victoria MD - 01/24/2022Forma tting of this note might be different from the original. [facility] [address] [place] [address] Voice: Fax: Echocardiogram Report Name: ERIC HOLLAND Study Date: 2021 12:16 PM BP: 96/65 mmHg Patient Location: [address] : 1990 Height: 183 cm Account: [id number] Age: 31 yrs Weight: 102 kg Gender: Male BSA: 2.2 m2 Ordering Physician: ETHAN HILLMAN Referring Physician: NICOLE LIN Performed By: Mialn Pascual RDCS Interpretation Summary Wall thickness is mildly increased. . Le ft ventricular systolic function is mildly reduced. The left ventricular ejection f raction is 46% by Stacy's biplane. Mild global hypokinesis. Right ventricle is mildly dilated. Right ventricular systolic function is mildly decreased. No significant valvular abnormalities. Other details as below. IMPRESSION: Mild global hypokinesis. As compared to the prior echo report from 05/03/2018, the prior LVEF was normal. Procedure Complete-52599. Right ventricular strain . Image enhancement Optison was used for left ventricular opacification. Suboptim al quality. Regular rhythm. Left Ventricle Left ventricle is of normal size. Wall t hickness is mildly increased. There is no left ventiruclar outflow tract obstructi on. There is no ventricular septal defect. Left ventricular systolic function is mi ldly reduced. The left ventricular ejection fraction is 46% by Stacy's bi plane. Mild global hypokinesis. Right Ventricle Right ventricle is mildly dilated. Right ventricular systolic function is mildly decreased. RV free wall strain is abnorm al -16.1%. RV global longitudinal strain - 13.2%. Left Atrium The left atrium is probably normal. No a bnormality of the interatrial septum is identified. Right Atrium The right atrium is normal. Aortic Valve The aortic valve is structurally normal. There is no aortic stenosis. There is no aortic regurgitation. Mitral Valve The mitral valve is structurally normal. There is no mitral stenosis. There is no mitral regurgitation. Tricuspid Valve The tricuspid valve is structurally norm al. There is no tricuspid stenosis. There is trace tricuspid regurgitation. Pulmonic Valve The pulmonic valve appears to be structu rally normal. There is no valvular pulmonic stenosis. There is trace pulmon ic valve regurgitation. Great Arteries The aortic root at the level of the sinu ses of Valsalva is mildly dilated. The left coronary artery originates from the left coronary cusp, and the right coronary artery originates from the righ t coronary cusp. Ascending aorta is normal in size. The main pulmonary artery is of normal size. Venous Inferior vena cava is normal in size. Pa tient is mechanically ventilated. Pericardium/Pleural The pericardium appears normal. Hemodynamics Left ventricular diastolic function is i ndeterminate. The estimated right atrial pressure is 8mmHg. Pulmonary artery hype rtension could not be assessed due to inadequate tricuspid regurgitation jet. Ejection Fraction 2D Measurements Volume s LV Biplane EF: 46.4 % IVSd: 1.4 cm LVIDd: 4.9 cm RA A4Cs_phl: 13.0 cm2 EDV Biplane: 88.4 ml LVIDs: 2.5 cm EDV Biplane Index: 39.5 LVPWd: 1.3 cm ESV Biplane: 47.4 ml LV mass(C)d: 258.0 grams ESV Biplane In dex: 21.2 LV mass(C)dI: 115.4 grams/m2 SV(LVOT): 46.9 ml Ao root diam: 3.8 cm LV Stroke Volume: 45.0 ml Ao root diam index: 1.7 asc Aorta Diam: 2.7 cm SI(LVOT): 21.0 m l/m2 LVOT diam: 2.4 cm TAPSE_phl: 1.8 cm Doppler TR max renny: 251.1 cm/sec RVSP(TR): 33.2 mmHg MV E max renny: 37.3 cm/sec MV A max renny: 61.5 cm/sec MV E/A: 0.61 Lat Peak E' Renny: 13.3 cm/sec E/ e' (lat): 2.8 Med Peak E' Renny: 6.5 cm/sec E/e' (med): 5.7 E/e' Average: 4.3 PI end-d renny: 207.7 cm/sec I WMSI = 2.00 % Normal = 0 Segments Size X - Cannot 2 - 4 - 1-2 small Interpret 1 - Normal Hypokinetic 3 - Althea netic Dyskinetic 3-5 moderate 5 - 6-14 large Aneurysmal 15-16 diffuse Gemma B Rafy BILL RECAPITULATION CLERK ECHO ORDERABLES Hepatitis A Antibody, Total (01/23/2022 6:10 PM EDT) Analysis Performed At Patho logist Time Signature Hepatitis A Ab Negative Negative [facility] Specimen Anatomical Collection Method Collection Time Receive d Time (Source) Location / / Volume Laterality Blood 01/23/2022 6:10 PM 6:21 EDT PM EDT Resulting Agency Comment Spec In Lab Ximena Robles MD IMMUNOLOGY ORDERABLES Performing Organization Address City/State/[place] [address] HIV Screen, 4th Generation ([facility]/CGP/APD/NLH) (01/23/2022 6:10 PM EDT) Analysis Performed At Patho logist Time Signature HIV-1/2 Ab and Negative Negative [facility] Comment: This 4th Generation HIV test screens for the presence of the HIV-1 p24 antigen as well as antibodies reactive against H IV-1 and HIV-2. A negative screen does not rule out an acute HIV infection. If acute HIV infection is suspected, testing should be repeated in 2 - 3 week s or HIV nucleic acid testing performed. HIV Comment Low Risk of HIV Infection MA R[facility] Specimen Anatomical Collection Method Collection Time Receive d Time (Source) Location / / Volume Laterality Blood 01/23/2022 6:10 PM 6:21 EDT PM EDT Resulting Agency Comment Spec In Lab Ximena Robles MD IMMUNOLOGY ORDERABLES Performing Organization Address City/State/[place] [address] (ABNORMAL) Troponin (01/23/2022 6:10 PM EDT)Only the most recent of4 results within the time period is included. P athologist Signature Troponin-T 0.14 (H) 0.00 - [facility] 0.00 ng/mL [facility] Comment: The 99th percentile for Troponin T is le ss than 0.01 ng/mL, any detectable cTnT concentration using this assay should be considered elevated. According to the third universal definit ion of myocardial infarction the following criteria with a clinical prese ntation consistent with acute myocardial ischemia meets the diagnosis for a myocardial infarction (MN). Detection of a rise and/or fall of cTnT, with at least one value greater than the 99th percentile (> or = 0.01) and wi th at least one of the following ?? Symptoms of ischemia ?? New or presumed new significant ST-se gment-T wave (ST-T) changes or new left bundle branch block (LBBB) ?? Development of pathologic Q waves in the ECG ?? Imaging evidence of new loss of viabl e myocardium or new regional wall motion abnormality ?? Identification of an intracoronary th rombus by angiography or autopsy Samples for cTnT testing should be obtai osiris serially upon first assessment and again 3 to 6 hours later. If the clinica l suspicion is high and previous samples have been negative an additional sample may be indicated. Reference: Third [place] Definition of Myocardial Infarction. Journal of the [place] [employer] 2012;60:1581-98 Specimen Anatomical Collection Method Collection Time Receive d Time (Source) Location / / Volume Laterality Blood 01/23/2022 6:10 PM 2 6:21 EDT PM EDT Resulting Agency Comment Spec In Lab Gemma B Pentland BILL RECAPITULATION CLERK CHEMISTRY ORDERABLES Performing Organization Address City/State/ZIP Code Phon e Number [place] [id number] XR Tibia Fibula Left (Generic) (01/23/2022 2:04 PM EDT) Anatomical Region Laterality Modality Left Digital Radiography Specimen (Source) Anatomical Location Collection Method / Collectio n Time Received Time / Laterality Volume Impressions 01/23/2022 2:07 PM EDT No bony abnormality seen. Thank you for letting us participate in the care of this patient. ??If you are a health care provider and have any questi ons regarding this report, please contact the number below. ??For patients who have questions please contact the health resident care associate that requested your imaging first. ? Narrative 01/23/2022 2:07 PM EDT EXAMINATION: XR TIBIA FIBULA LEFT (GENERIC) CLINICAL HISTORY: compartment syndrome s /p I+D wound vac. low supsicion of osseous injury TY ! TECHNIQUE: 2 views LEFT tibia and fibula COMPARISON: None FINDINGS: There are numerous surgical clips along with a wound VAC along the lateral aspect of the left lower leg. No underly ing bony abnormality is seen. Procedure Note Jacky Mello MD - 01/23/2022Format ting of this note might be different from the original. EXAMINATION: XR TIBIA FIBULA LEFT (GENER IC) CLINICAL HISTORY: compartment syndrome s /p I+D wound vac. low supsicion of osseous injury TY ! TECHNIQUE: 2 views LEFT tibia and fibula COMPARISON: None FINDINGS: There are numerous surgical clips along with a wound VAC along the lateral aspect of the left lower leg. No underly ing bony abnormality is seen. IMPRESSION No bony abnormality seen. Thank you for letting us participate in the care of this patient. If you are a health care provider and have any questi ons regarding this report, please contact the number below. For patients w ho have questions please contact the health resident care associate that requested your imaging first. Ximena Travis HARTLEY IMG DX ORDERABLES XR Femur 2 views Left (Generic) (01/23/2022 2:04 PM EDT) Anatomical Region Laterality Modality Thigh Left Digital Radiography Specimen (Source) Anatomical Location Collection Method / Collectio n Time Received Time / Laterality Volume Impressions 01/23/2022 2:10 PM EDT No significant osseous finding. Thank you for letting us participate in the care of this patient. ??If you are a health care provider and have any questi ons regarding this report, please contact the number below. ??For patients who have questions please contact the health resident care associate that requested your imaging first. ? Narrative 01/23/2022 2:10 PM EDT EXAMINATION: XR FEMUR 2 VIEWS LEFT (GENERIC) CLINICAL HISTORY: compartment syndrome s /p I+D wound vac. low supsicion of osseous injury TY ! TECHNIQUE: 2 views LEFT femur COMPARISON: None FINDINGS: No acute osseous abnormality is seen. No lytic or blastic lesion is identified. Soft tissue swelling is noted. Procedure Note Lisandro Pruett MD - 01/23/2022Formattin g of this note might be different from the original. EXAMINATION: XR FEMUR 2 VIEWS LEFT (GENE CELY) CLINICAL HISTORY: compartment syndrome s /p I+D wound vac. low supsicion of osseous injury TY ! TECHNIQUE: 2 views LEFT femur COMPARISON: None FINDINGS: No acute osseous abnormality is seen. No lytic or blastic lesion is identified. Soft tissue swelling is noted. IMPRESSION No significant osseous finding. Thank you for letting us participate in the care of this patient. If you are a health care provider and have any questi ons regarding this report, please contact the number below. For patients w ho have questions please contact the health resident care associate that requested your imaging first. Ximena Robles MD IMG DX ORDERABLES Hepatitis B DNA, quantitative, PCR (01/23/2022 11:50 AM EDT) Component Value Ref Test Analysis Performed At [facility] Method Time Signature Hepatitis B Result: <10 IU/mL (Target Not Detected) MANDO RAMESH quantitative, Indication for Study: HBV Infection [facility] Analysis: [facility] Alinity m HBV assay is an in vi tro polymerase chain reaction LABORATORY (PCR) assay for the quantification of Hepatitis B Virus (HBV ) DNA in human plasma (EDTA) from chronically HBV-infected individuals. Sample: plasma Method: [facility] RealTime HBV Assay Linear Range: 10 IU/mL ? 1,000,000,000 IU/mL Note: The [facility] Alinity m HBV Assay has been approved by the U.S. Food and Drug Administration. Specimen Anatomical Collection Method Collection Time Receive d Time (Source) Location / / Volume Laterality Blood 01/23/2022 11:50 01/25/2022 8:53 AM EDT AM EDT Resulting Agency Comment Spec In Lab Agnieszka López BILL RECAPITULATION CLERK CHEMISTRY ORDERABLES Performing Organization Address City/State/[place] [address] Hepatitis B Core Antibody, Total (01/23/2022 11:50 AM EDT) Analysis Performed At Patho logist Time Signature Hep B Core Ab Negative Negative [facility] Specimen Anatomical Collection Method Collection Time Receive d Time (Source) Location / / Volume Laterality Blood 01/23/2022 11:50 01/23/2022 AM EDT 12:00 PM EDT Resulting Agency Comment Spec In Lab Agnieszka López BILL RECAPITULATION CLERK CHEMISTRY ORDERABLES Performing Organization Address City/[facility]/[place] [address] (ABNORMAL) Lower Respiratory Culture Tracheal Aspirate (01/23/2022 11:50 AM EDT) Component Value Ref Test Analysis Performed At Patholo gist Range Method Time Signature Lower Many Staphylococcus aureus MAR Y Respiratory Few mixed bacterial morphoty pes suggestive of normal upper respiratory yessy [facility] Culture ([facility] Gram Stain Many Neutrophils JOSH No squamous epithelial cells [facility] Moderate Gram Positive Cocci [facility] Organism Staphylococcus JOSH aureus (A) [facility] Specimen Anatomical Collection Method Collection Time Receive d Time (Source) Location / / Volume Laterality Tracheal 01/23/2022 11:50 01/23/2022 Aspirate AM EDT 12:18 PM EDT Resulting Agency Comment Spec In Lab Organism Antibiotic Method Susceptibility Staphylococcus aureus Clindamycin VITEK 2 METHOD Sensitive Staphylococcus aureus Erythromycin VITEK 2 METHOD Sensitive Staphylococcus aureus Gentamicin VITEK 2 METHOD Sensitive Comment: Gentamicin is not a ppropriate for [place]-therapy. Staphylococcus aureus Oxacillin VITEK 2 METHOD Sensitive Comment: Oxacillin (methicillin) susc eptibility is a surrogate for the oral and parenteral cephalosporins, b eta-lactam combination agents (amoxicillin-clavulanate, am picillin-sulbactam and piperacillin-tazobactam) and carbapenem agents. ??It is N OT a surrogate for penicillin, ampicillin or piperacillin susceptibility. Staphylococcus aureus Trimethoprim/Sulfa VITEK 2 METHOD Sensiti ve Staphylococcus aureus Tetracycline VITEK 2 METHOD Sensitive Staphylococcus aureus Vancomycin VITEK 2 METHOD Sensitive Ethan Huang Rafy BILL RECAPITULATION CLERK MICROBIOLOGY - GENERAL ORDER JT Performing Organization Address City/State/ZIP Code Emiliano MORENO [place] [id number] XR Hand Min 3 views Left (Generic) (01/23/2022 6:32 AM EDT) Anatomical Region Laterality Modality Hand Left Digital Radiography Specimen (Source) Anatomical Location Collection Method / Collectio n Time Received Time / Laterality Volume Narrative 01/23/2022 11:07 AM EDT EXAMINATION: XR HAND MIN 3 VIEWS LEFT (GENERIC) CLINICAL HISTORY: Swelling TECHNIQUE: 3 views LEFT hand COMPARISON: None FINDINGS: There is soft tissue swelling about the hand but no fracture or underlying bony abnormality is seen. Thank you for letting us participate in the care of this patient. ??If you are a health care provider and have any questi ons regarding this report, please contact the number below. ??For patients who have questions please contact the health resident care associate that requested your imaging first. ? Procedure Note Jacky Mello MD - 01/23/2022Format ting of this note might be different from the original. EXAMINATION: XR HAND MIN 3 VIEWS LEFT (G ENERIC) CLINICAL HISTORY: Swelling TECHNIQUE: 3 views LEFT hand COMPARISON: None FINDINGS: There is soft tissue swelling about the hand but no fracture or underlying bony abnormality is seen. Thank you for letting us participate in the care of this patient. If you are a health care provider and have any questi ons regarding this report, please contact the number below. For patients w ho have questions please contact the health resident care associate that requested your imaging first. Ximena Robles MD IMG DX ORDERABLES XR Forearm Left (Generic) (01/23/2022 6:32 AM EDT) Anatomical Region Laterality Modality Forearm Left Digital Radiography Specimen (Source) Anatomical Location Collection Method / Collectio n Time Received Time / Laterality Volume Impressions 01/23/2022 7:14 AM EDT FINDINGS/IMPRESSION: No acute fracture of the radius or ulna seen. Diffuse soft tissue stranding and edema of the forearm. Preliminary report signed by: Balaji pena at 01/23/2022 6:55 AM I have personally reviewed the image(s) and the resident's interpretation and agree with the findings, Ren Carmona at 01/23/2022 7:14 AM Thank you for letting us participate in the care of this patient. ??If you are a health care provider and have any questi ons regarding this report, please contact the number below. ??For patients who have questions please contact the health resident care associate that requested your imaging first. ? Narrative 01/23/2022 7:14 AM EDT EXAMINATION: XR FOREARM LEFT (GENERIC) CLINICAL HISTORY: found down left forear m ??swelling TECHNIQUE: 2 views LEFT forearm COMPARISON: CT left forearm 01/23/2022 Procedure Note Rex Addison MD - 01/23/2022 EXAMINATION: XR FOREARM LEFT (GENERIC) CLINICAL HISTORY: found down left forear m swelling TECHNIQUE: 2 views LEFT forearm COMPARISON: CT left forearm 01/23/2022 IMPRESSION FINDINGS/IMPRESSION: No acute fracture of the radius or ulna seen. Diffuse soft tissue stranding and edema of the forearm. Preliminary report signed by: Balaji pena at 01/23/2022 6:55 AM I have personally reviewed the image(s) and the resident's interpretation and agree with the findings, Ren Carmona at 01/23/2022 7:14 AM Thank you for letting us participate in the care of this patient. If you are a health care provider and have any questi ons regarding this report, please contact the number below. For patients w ho have questions please contact the health resident care associate that requested your imaging first. Ximena Travis HARTLEY IMG DX ORDERABLES CENTRAL LINE (01/23/2022 6:25 AM EDT) Narrative Ethan Hillman APRN - 01/23/2022 6:2 5 AM EDT Ethan Hillman APRN ? 01/23/2022 ??6:28 AM Central Line Placement Procedure Note Items highlighted in red are State Repor karina items for central line compliance documentation. Procedure Diagnosis: Rhabdomyolysis, hyp erkalemia, ALTHEA Risks and Benefits reviewed: yes. Informed Consent obtained: yes- verbal c onsent obtained from pt's father Reason for insertion: new central line Time out performed and documented: yes Hand Hygiene performed: Yes Skin prepped with: chlorhexidine ?? Skin prep agent completely dry at time o f first puncture: yes 5 ml of 1% lidocaine was used for ??loca l anesthesia. Sterile drape: ??large sterile drape use d Mask/eye shield: ??mask/eye shield used Large sterile gown: ??large sterile gown used Sterile gloves: ??sterile gloves used Cap worn: ??cap worn Ultrasound guidance used for insertion: Yes Kit type used: ??An 18 Ga. X 2.5 inch ne edle was placed in vein after blood return identified. Guided by a 0.035 inch diameter guide wire, a 13 ??, 3 ??lumen, 15 ??cm catheter was inserted using the Seldinger Technique. Catheter type: CVL- Hemodialysis Tunneled/Non Tunneled: non tunneled Insertion Site: jugular (internal) Insertion Side: right Number of attempts: 1 Insertion successful: Yes Catheter sutured at the skin at: 15 cm . Sterile dressing: Chlorhexidine Tegaderm Findings: Patient tolerated procedure we ll., Blood returned appropriately. Complications: No Complications. Chest X-ray ordered: yes Patient location at time of insertion: [address] Procedure Comments: Prior to dilation wire was visualized vi a ultrasound entering large, collapsible vessel in both transv erse and longitudinal planes. All ports had positive blood ret urn and were able to be flushed without difficulty. Ethan Hillman APRN Ethan Hillman APRN PROCEDURE/MINOR SURGICAL ORD ERABLES Hepatitis C Antibody (01/23/2022 4:49 AM EDT) Analysis Performed At Patho logist Time Signature Hepatitis C Ab Negative Negative [facility] Specimen Anatomical Collection Method Collection Time Receive d Time (Source) Location / / Volume Laterality Blood 01/23/2022 4:49 AM 2 4:56 EDT AM EDT Resulting Agency Comment Spec In Lab Ethan Hillman APRN IMMUNOLOGY ORDERABLES Performing Organization Address City/State/[place] [address] Hepatitis B Surface Antibody (01/23/2022 4:49 AM EDT) P athologist Signature HepB Surface 418.0 IU/L [facility] Ab Quant [facility] Comment: HepB Surface Ab Quant: Unvaccinated: < 8.5 IU/L Vaccinated: > 11.5 IU/L HepB Surface Ab Positive [facility] Comment: Patient is considered to be immune to HB V infection. Expected Results: Vaccinated: Positive Unvaccinated: Negative Specimen Anatomical Collection Method Collection Time Receive d Time (Source) Location / / Volume Laterality Blood 01/23/2022 4:49 AM 2 4:56 EDT AM EDT Resulting Agency Comment Spec In Lab Gemma B Pentland BILL RECAPITULATION CLERK IMMUNOLOGY ORDERABLES Performing Organization Address City/[facility]/ZIP Code Phon e Number [place] [phone] (ABNORMAL) Potassium (01/23/2022 4:49 AM EDT) P athologist Signature Potassium 6.6 3.5 - 5.0 JOSH MANDO (Critical) mmol/L [facility] Comment: Called by: kvng, Read back by: jean carlos freeman, Date/Time:01/23/22 05:25. Please note: ??Patients with WBC >100,00 0 may have falsely elevated Potassium levels. ??For accurate Potassium quantif ication in these patients send serum separator tube (gold top) for subsequent determinations. ??Contact the Clinical Chemistry Laboratory if there are any qu estions. Specimen Anatomical Collection Method Collection Time Receive d Time (Source) Location / / Volume Laterality Blood 01/23/2022 4:49 AM 4:56 EDT AM EDT Resulting Agency Comment Spec In Lab Flashnotesma B Pentland BILL RECAPITULATION CLERK CHEMISTRY ORDERABLES Performing Organization Address [facility]/[place] [address] Lower Extremity wo Contrast Left (Generic) (01/23/2022 3:58 AM EDT) Anatomical Region Laterality Modality Hip, Leg, Knee, Thigh, Ankle, Foot Left Compu karina Tomography Specimen (Source) Anatomical Collection Method Collection Time Re ceived Time Location / / Volume Laterality 01/23/2022 4:03 AM EDT Impressions 01/24/2022 1:45 PM EDT LEFT 1. ??No osseous abnormality 2. ??The clinically palpable deep soft t issue mass is not identified with certainty. Equivocal ill-defined low den sity within vastus intermedialis muscle represents muscle injury, lesion or rela karina to technique. 3. ??Subcutaneous and deep fascial edema of the LEFT lower pelvis and upper thigh. Findings are nonspecific and coul d be related to any combination of fasciitis, cellulitis, trauma or neoplas tic infiltration. Consider supplementary MRI if the concern for soft tissue mass remains high. Thank you for letting us participate in the care of this patient. ??If you are a health care provider and have any questi ons regarding this report, please contact the number below. ??For patients who have questions please contact the health resident care associate that requested your imaging first. ? Narrative 01/24/2022 1:45 PM EDT EXAMINATION: CT LOWER EXTREMITY WO CONTRAST LEFT (GENERIC) CLINICAL HISTORY: Soft tissue mass, th igh, deep, Found down. Thigh swelling and firm compartment c/f compartment syn drome., entered by ordering service TECHNIQUE: CT scan of LEFT femur,. Sagit lg and coronal reformations were created. COMPARISON: none FINDINGS: LEFT Bones Femur-no Acute fracture, periostitis or bone destruction. Joints Normal hip and knee alignment. Soft tissues and muscles * ??The reported deep soft tissue mass i s not identified with certainty. * ??Vastus intermedius - equivocal hypod ense muscle, series 3 image 139 is nonspecific. This could be artifactual b ut cannot exclude muscle edema/lesion. * ??Diffuse infiltration of the deep fas kinsey and subcutaneous fat of the lower pelvis and upper thigh, series 3 image 8 0. No well-circumscribed mass lesion seen or fluid collection/abscess seen. Soft tissues of pelvis- a Travis in collapsed urinary bladder is seen. No enlarged lymph nodes detected. No bowel dilatation. Small fat-containin g LEFT inguinal hernia. Sciatic nerve-the perineural fat is effa naveed, mostly related to diffuse deep fascial edema or inflammation. Procedure Note Melita Mills MD - 01/24/2022Formatt ing of this note might be different from the original. EXAMINATION: CT LOWER EXTREMITY WO CONTR AST LEFT (GENERIC) CLINICAL HISTORY: Soft tissue mass, th igh, deep, Found down. Thigh swelling and firm compartment c/f compartment syn drome., entered by ordering service TECHNIQUE: CT scan of LEFT femur,. Sagit lg and coronal reformations were created. COMPARISON: none FINDINGS: LEFT Bones Femur-no Acute fracture, periostitis or bone destruction. Joints Normal hip and knee alignment. Soft tissues and muscles * The reported deep soft tissue mass is not identified with certainty. * Vastus intermedius - equivocal hypoden se muscle, series 3 image 139 is nonspecific. This could be artifactual b ut cannot exclude muscle edema/lesion. * Diffuse infiltration of the deep fasci a and subcutaneous fat of the lower pelvis and upper thigh, series 3 image 8 0. No well-circumscribed mass lesion seen or fluid collection/abscess seen. Soft tissues of pelvis- a Travis in collapsed urinary bladder is seen. No enlarged lymph nodes detected. No bowel dilatation. Small fat-containin g LEFT inguinal hernia. Sciatic nerve-the perineural fat is effa naveed, mostly related to diffuse deep fascial edema or inflammation. IMPRESSION LEFT 1. No osseous abnormality 2. The clinically palpable deep soft tis tj mass is not identified with certainty. Equivocal ill-defined low den sity within vastus intermedialis muscle represents muscle injury, lesion or rela karina to technique. 3. Subcutaneous and deep fascial edema o f the LEFT lower pelvis and upper thigh. Findings are nonspecific and coul d be related to any combination of fasciitis, cellulitis, trauma or neoplas tic infiltration. Consider supplementary MRI if the concern for soft tissue mass remains high. Thank you for letting us participate in the care of this patient. If you are a health care provider and have any questi ons regarding this report, please contact the number below. For patients w ho have questions please contact the health resident care associate that requested your imaging first. Gemma B Pentcaitlin BILL RECAPITULATION CLERK IMG CT ORDERABLES CT Upper Extremity w Contrast Left (01/23/2022 3:58 AM EDT) Anatomical Region Laterality Modality Shoulder, Arm, Elbow, Forearm, Wrist, Hand Left Computed Tomography Specimen (Source) Anatomical Collection Method Collection Time Re ceived Time Location / / Volume Laterality 01/23/2022 4:13 AM EDT Impressions 01/23/2022 4:58 AM EDT Diffuse muscular hypoattenuation from the mid forearm into the hand could be sequela of edema/myositis or ischemia. Thank you for letting us participate in the care of this patient. ??If you are a health care provider and have any questi ons regarding this report, please contact the number below. ??For patients who have questions please contact the health resident care associate that requested your imaging first. ? Narrative 01/23/2022 4:58 AM EDT EXAMINATION: CT UPPER EXTREMITY W CONTRAST LEFT CLINICAL HISTORY: Forearm trauma, initia l exam Found down, left forearm swelling with l ack of peripheral pulses. Concern for compartment syndrome TECHNIQUE: CT LEFT upper extremity (elbow to hand) with intravenous contrast; 100 cc Omnipaque 350 intravenously administered . COMPARISON: None FINDINGS: Mild to moderate soft tissue swelling at the dorsal aspect of the elbow. Diffuse hypoattenuation of the musculature from the mid forearm into the hand. Osseous structures appear unremarkable. Limited assessment of the arteries given non-angiographic technique; within this confine, principal arteries appear grossly patent. Procedure Note Rex Addison MD - 01/23/2022 EXAMINATION: CT UPPER EXTREMITY W CONTRA ST LEFT CLINICAL HISTORY: Forearm trauma, initia l exam Found down, left forearm swelling with l ack of peripheral pulses. Concern for compartment syndrome TECHNIQUE: CT LEFT upper extremity (elbow to hand) with intravenous contrast; 100 cc Omnipaque 350 intravenously administered . COMPARISON: None FINDINGS: Mild to moderate soft tissue swelling at the dorsal aspect of the elbow. Diffuse hypoattenuation of the musculature from the mid forearm into the hand. Osseous structures appear unremarkable. Limited assessment of the arteries given non-angiographic technique; within this confine, principal arteries appear grossly patent. IMPRESSION Diffuse muscular hypoattenuation from th e mid forearm into the hand could be sequela of edema/myositis or ischemia. Thank you for letting us participate in the care of this patient. If you are a health care provider and have any questi ons regarding this report, please contact the number below. For patients w ho have questions please contact the health resident care associate that requested your imaging first. Gemma B Pentland BILL RECAPITULATION CLERK IMG CT ORDERABLES CT Chest wo Contrast (Generic) (01/23/2022 3:58 AM EDT) Anatomical Region Laterality Modality Chest Computed Tomography Specimen (Source) Anatomical Collection Method Collection Time Re ceived Time Location / / Volume Laterality 01/23/2022 3:49 AM EDT Impressions 01/23/2022 4:39 AM EDT FINDINGS/IMPRESSION: Airways: Endotracheal tube tip 3.1 cm ab ove the maia. Lungs/Pleura: Partial collapse of the LL L dorsally/medially. Mild dependent atelectasis bilaterally. Mediastinum/Kolton: Unremarkable. Cardiac/Vasculature: Unremarkable. Included Upper Abdomen: Esophagogastric tube loops within the fundus, terminating within the region of the pyl orus. Fluid within the included upper small and large bowel segments. Osseous Structures: No acute abnormality identified. Thank you for letting us participate in the care of this patient. ??If you are a health care provider and have any questi ons regarding this report, please contact the number below. ??For patients who have questions please contact the health resident care associate that requested your imaging first. ? Narrative 01/23/2022 4:39 AM EDT EXAMINATION: CT CHEST WO CONTRAST (GENERIC) CLINICAL HISTORY: Aspiration Hypoxia [id number] to XR imaging. Presenting with cardiac arrest s/p ROSC, unclear etiology. TECHNIQUE: Noncontrast CT chest. Absence of intravenous contrast renders suboptimal assessment of potential paren chymal and mediastinal masses as well as hilar lymphadenopathy, and blood vessels and cardiovascular structures. COMPARISON: None Procedure Note Rex Addison MD - 01/23/2022 EXAMINATION: CT CHEST WO CONTRAST (GENER IC) CLINICAL HISTORY: Aspiration Hypoxia [id number] to XR imaging. Presenting with cardiac arrest s/p ROSC, unclear etiology. TECHNIQUE: Noncontrast CT chest. Absence of intravenous contrast renders suboptimal assessment of potential paren chymal and mediastinal masses as well as hilar lymphadenopathy, and blood vessels and cardiovascular structures. COMPARISON: None IMPRESSION FINDINGS/IMPRESSION: Airways: Endotracheal tube tip 3.1 cm ab ove the maia. Lungs/Pleura: Partial collapse of the LL L dorsally/medially. Mild dependent atelectasis bilaterally. Mediastinum/Kolton: Unremarkable. Cardiac/Vasculature: Unremarkable. Included Upper Abdomen: Esophagogastric tube loops within the fundus, terminating within the region of the pyl orus. Fluid within the included upper small and large bowel segments. Osseous Structures: No acute abnormality identified. Thank you for letting us participate in the care of this patient. If you are a health care provider and have any questi ons regarding this report, please contact the number below. For patients w ho have questions please contact the health resident care associate that requested your imaging first. Jaquelinma B Rafy SPEARSN IMG CT ORDERABLES CT Head wo Contrast (Generic) (01/23/2022 3:58 AM EDT) Anatomical Region Laterality Modality Head Computed Tomography Specimen (Source) Anatomical Collection Method Collection Time Re ceived Time Location / / Volume Laterality 01/23/2022 3:45 AM EDT Impressions 01/23/2022 4:27 AM EDT Globi pallidi infarcts. Mild cerebral edema. Thank you for letting us participate in the care of this patient. ??If you are a health care provider and have any questi ons regarding this report, please contact the number below. ??For patients who have questions please contact the health resident care associate that requested your imaging first. ? Narrative 01/23/2022 4:27 AM EDT EXAMINATION: CT HEAD WO CONTRAST (GENERIC) CLINICAL HISTORY: Altered mental status, nontraumatic (Ped 0-18y) s/p Cardiac arrest with ROSC. Poor menta l status concerning for possible anoxic injury vs ICH TECHNIQUE: CT head performed without intravenous co ntrast administration. COMPARISON: CT head 04/22/2013 FINDINGS: Focal hypoattenuation within the globi p allidi bilaterally. Mix-white interface is the remainder of the brain appear relatively well differentiated, although there is probab ly mild cerebral edema. No acute intracranial hemorrhage identif ied. No significant mass effect appreciated. Mild cerebellar tonsillar ectopia. Included paranasal sinuses demonstrate s cattered mucosal thickening. Included mastoid air cells appear well-a erated. Calvarium appears intact. Procedure Note Rex Addison MD - 01/23/2022 EXAMINATION: CT HEAD WO CONTRAST (GENERI C) CLINICAL HISTORY: Altered mental status, nontraumatic (Ped 0-18y) s/p Cardiac arrest with ROSC. Poor menta l status concerning for possible anoxic injury vs ICH TECHNIQUE: CT head performed without intravenous co ntrast administration. COMPARISON: CT head 04/22/2013 FINDINGS: Focal hypoattenuation within the globi p allidi bilaterally. Mix-white interface is the remainder of the brain appear relatively well differentiated, although there is probab ly mild cerebral edema. No acute intracranial hemorrhage identif ied. No significant mass effect appreciated. Mild cerebellar tonsillar ectopia. Included paranasal sinuses demonstrate s cattered mucosal thickening. Included mastoid air cells appear well-a erated. Calvarium appears intact. IMPRESSION Globi pallidi infarcts. Mild cerebral edema. Thank you for letting us participate in the care of this patient. If you are a health care provider and have any questi ons regarding this report, please contact the number below. For patients w ho have questions please contact the health resident care associate that requested your imaging first. Ethan Hillman APRN IMG CT ORDERABLES Insert Arterial Line (01/23/2022 2:16 AM EDT) Narrative Ethan Hillman APRN - 01/23/2022 2:1 6 AM EDT Ethan Hillman APRN ? 01/23/2022 ??2:18 AM Arterial Line Placement Procedure Note Indication for Procedure: Arterial line was placed for invasive blood pressure monitoring and arterial b lood gases. Procedure Diagnosis: Hypotension requiri ng vasopressors. Location of Procedure: Critical Care. Risks and Benefits: The risks and benefi ts of this procedure were not reviewed and informed consent was no t obtained due to emergent nature of this procedure Time Out: Prior to the start of the proc edure, the patient's identity, intended procedure, site/side, correct patient positioning and presence of the site mar k was confirmed as applicable. The medical history and drake t were reviewed to rule out potential contraindications to the p lanned procedure. ?? Hand Hygiene: The heel molder did perform h and hygiene prior to arterial line insertion. Procedure Prep: Sterile draping was appl ied. Skin was prepped with chlorhexidine. Procedure Details: A 20 gauge, 2 inch ca theter was placed in the right radial artery and secured with tap e and steri-strips. Tegaderm was applied. Ultrasound was use d for guidance. Guide wire was used in this procedure. The roque de wire had a diameter of .018 inches. There was 1 attempt. ?? Findings: There were no procedure compli cations. Blood was drawn with ease. Good wave form. Procedure Comments: N/A Jaquelinashley Huang Alyciacaitlin KATERYNA PROCEDURE/MINOR SURGICAL ORD ERABLES Rapid Drug Screen, Urine (MEGHNA Request) (01/23/2022 1:45 AM EDT) Foods You Can Method Time Signature MEGHNA Conf No [facility] MEGHNA Requested See Comment [facility] Comment: Refer to Rapid Drug Screen w/o Confirmation, Urine for results. Specimen Anatomical Collection Method Collection Time Receive d Time (Source) Location / / Volume Laterality Urine 01/23/2022 1:45 AM 1:52 EDT AM EDT Resulting Agency Comment Spec In Lab Ethan Hillman BILL RECAPITULATION CLERK URINE ORDERABLES Performing Organization Address City/State/[place] [address] (ABNORMAL) Rapid Drug Screen w/o Confirmation, Urine (01/23/2022 1:45 AM EDT) Foods You Can Method Time Signature U Barbiturates Presumptive None [facility] Screen Pos (A) Detected [facility] Comment: The barbiturate screen detects barbitura diamond at concentrations >200 ng/mL. Note: Not all barbiturates cross-react equally with antibody used in this screen. A ? Presumptive Positive? result indicates that the screening result was positive but has not yet been confirmed by a highly-specific method. As with any screen, occasional false positive re sults from cross-reacting substances may occur. Not for Medico-Legal Purposes. U Benzodiazepines Screen Presumptive Pos (A) None Detected [facility] Comment: The benzodiazepines screen detects benzo diazepines at concentrations >100 ng/mL. Not all benzodiazepines cross-santosh ct equally with antibody used in this screen. Due to the low dosage of clonaze consuelo, false negatives may be obtained due to low concentration of clonazepam m etabolites. A ? Presumptive Positive? result indicates that the screening result was positive but has not yet been confirmed by a highly-specific method. As with any screen, occasional false positive re sults from cross-reacting substances may occur. Not for Medico-Legal Purposes. U Cocaine Screen None Detected None Detected [facility] Comment: The cocaine metabolites screen detects b enzoylecgonine (Cocaine Metabolite) at concentrations >150 ng/mL. A ? Presumptive Positive? result indicates that the screening result was positive but has not yet been confirmed by a highly-specific method. As with any screen, occasional false positive re sults from cross-reacting substances may occur. Not for Medico-Legal Purposes. U Methadone Metabolites None Detected None Detected [facility] Comment: The methadone metabolite screen detects EDDP (major methadone metabolite) at concentrations >100 ng/mL. A ? Presumptive Positive? result indicates that the screening result was positive but has not yet been confirmed by a highly-specific method. As with any screen, occasional false positive re sults from cross-reacting substances may occur. Not for Medico-Legal Purposes. U Opiate Screen None Detected None Detected [facility] Comment: The opiates screen detects opiates at co ncentrations >300 ng/mL. Please note that oxycodone, oxymorphone, fentanyl, tramadol, and other synthetic opioids are not detected by e opiate screen. A ? Presumptive Positive? result indicates that the screening result was positive but has not yet been confirmed by a highly-specific method. As with any screen, occasional false positive re sults from cross-reacting substances may occur. Not for Medico-Legal Purposes. U Cannabinoid Screen None Detected None Detected Ren WEBB [facility] Comment: The marijuana metabolites screen detects the THC metabolite (12-ouj-2-carboxy-delta 9-THC) at concen trations >20 ng/mL. A ? Presumptive Positive? result indicates that the screening result was positive but has not yet been confirmed by a highly-specific method. As with any screen, occasional false positive re sults from cross-reacting substances may occur. Not for Medico-Legal Purposes. U Oxycodone Screen Presumptive Pos (A) None Detected [facility] Comment: The oxycodone screen detects oxycodone a nd oxymorphone at concentrations >100 ng/mL. A ? Presumptive Positive? result indicates that the screening result was positive but has not yet been confirmed by a highly-specific method. As with any screen, occasional false positive re sults from cross-reacting substances may occur. Not for Medico-Legal Purposes. U Buprenorphine Screen None Detected None Detected [facility] Comment: The buprenorphine screen detects bupreno rphine at concentrations >5 ng/mL. A ? Presumptive Positive? result indicates that the screening result was positive but has not yet been confirmed by a highly-specific method. As with any screen, occasional false positive re sults from cross-reacting substances may occur. Not for Medico-Legal Purposes. U Fentanyl Screen Presumptive Pos (A) None Detected [facility] Comment: The fentanyl screen detects fentanyl at concentrations >2 ng/mL. A ? Presumptive Positive? result indicates that the screening result was positive but has not yet been confirmed by a highly-specific method. As with any screen, occasional false positive re sults from cross-reacting substances may occur. Not for Medico-Legal Purposes. U Tricyclics Screen None Detected None Detected ASHLEY CAMPO [facility] Comment: The tricyclics screen detects tricyclic antidepressants at concentrations >150 ng/mL. Not all tricyclics cross-react eq ually with the antibody used in this screen. A ? Presumptive Positive? result indicates that the screening result was positive but has not yet been confirmed by a highly-specific method. As with any screen, occasional false positive re sults from cross-reacting substances may occur. Not for Medico-Legal Purposes. U Ethanol Screen None Detected None Detected [facility] Comment: This urine ethanol assay detect s ethanol at concentrations >/= 100 mg/L. U Amphetamines Screen None Detected None Detected [facility] Comment: The amphetamine screen detects d-ampheta mine and d-methamphetamine at concentrations >300 ng/mL. A ? Presumptive Positive? result indicates that the screening result was positive but has not yet been confirmed by a highly-specific method. As with any screen, occasional false positive re sults from cross-reacting substances may occur. Not for Medico-Legal Purposes. U Adulterants Screen None Detected None Detected Ren WEBB [facility] Comment: No adulteration or dilution of this urin e sample was detected. All urine samples submitted for urine drugs of abu se analysis are tested for creatinine concentration, pH, and for the presence of oxidants, nitrites, and chromate. Specimen Anatomical Collection Method Collection Time Receive d Time (Source) Location / / Volume Laterality Urine 01/23/2022 1:45 AM 1:52 EDT AM EDT Resulting Agency Comment Spec In Lab Gemma B Pentland BILL RECAPITULATION CLERK CHEMISTRY ORDERABLES Performing Organization Address City/[facility]/[place] [address] (ABNORMAL) [facility] [place] (01/23/2022 12:45 AM EDT) P athologist Signature TSH 7.69 (H) 0.27 - 4.20 JOSH [place] mcIU/mL [facility] Comment: Reference Interval (mcIU/mL): Females: ??First Trimester: 0.23-3.88 ??Second Trimester: 0.22-3.90 ??Third Trimester: 0.44-4.66 Specimen Anatomical Collection Method Collection Time Receive d Time (Source) Location / / Volume Laterality Blood 01/23/2022 12:45 01/23/2022 1:08 AM EDT AM EDT Resulting Agency Comment Spec In Lab Gemma B Pentland BILL RECAPITULATION CLERK CHEMISTRY ORDERABLES Performing Organization Address City/[facility]/ZIP Code Phon e Number [address] T4, free (01/23/2022 12:45 AM EDT) P athologist Signature Free T4 1.19 0.93 - 1.70 JOSH [place] ng/dL [facility] Comment: Reference Interval (ng/dL): Females: ??First Trimester: 0.97-1.68 ??Second Trimester: 0.77-1.51 ??Third Trimester: 0.77-1.49 Specimen Anatomical Collection Method Collection Time Receive d Time (Source) Location / / Volume Laterality Blood 01/23/2022 12:45 01/23/2022 1:13 AM EDT AM EDT Resulting Agency Comment Spec In Lab Gemma B Pentland BILL RECAPITULATION CLERK CHEMISTRY ORDERABLES Performing Organization Address City/[facility]/[place] [address] (ABNORMAL) COVID-19 PCR (01/23/2022 12:44 AM EDT) [facility] Method Time Signature SARS-CoV-2 Detected (A) Not Detected JOSH RNA [facility] Comment: This result should be interpreted in com bination with the clinical observations, patient history and epidem iological information in making a final diagnosis. For testing of asymptomatic i ndividuals, assay performance characteristics and clinical utility hav e not been evaluated. Testing for SARS-CoV-2 (Severe acute respiratory syn drome coronavirus 2, formerly known as 2019 novel coronavirus or 2019-nCoV) to aid in the diagnosis of COVID-19 is performed using the [employer] S-CoV-2 Assay as authorized by the FDA Emergency Use Authorization (EUA). This EUA assay is intended for In-vitro Diagnostic (IVD) use with respiratory sp ecimens such as nasopharyngeal swabs collected from individuals during the ac egegik phase of infection. This assay is performed based on the instructions for use provided by [employer] and additional guidance provided by CDC and FDA. Testing is performed in the [facility] within the Department of Pathology and Laboratory Medicine at [facility], certified under the Clinical Laboratory Improvement Amendments of 1988 (CLIA), 42 U.S.C. 263a, to perform high complexi ty tests. Assay performance has been verified according to clinical laborator y regulatory requirements for use with specimens collected from individuals clara pected of COVID-19. Test results are provided above. A result of Not Detecte d indicates that the viral RNA target is not present above the limit of detect ion, but does not preclude SARS-CoV-2 infection. False negative results may oc cur if a specimen is improperly collected, transported or handled; if am plification inhibitors are present; or if inadequate numbers of viral particles are present in the specimen. When a diagnostic test is negative, the possibi lity of a false negative result should be considered in the context of a patien t's recent exposures and the presence of clinical signs and symptoms consisten t with COVID-19. A result of Detected indicates that RNA from SARS-CoV-2 was d etected and the patient is infected. As required or requested by public health a uthorities, positive specimens may be sent for additional testing. Positive an d negative predictive values for this test are highly dependent on disease pre valence. A result of Invalid indicates that neither the viral RNA tar gets nor the internal control target was detected. An invalid result suggests the presence of inhibitors. Recollection and re-testing is recommend ed in the case of an invalid result. CDC COVID-19 criteria for testing on hum an specimens and clinical management guidance information are available at [facility] CDC Coronavirus Disease 2019 (COVID-19) webpage under Information fo r Healthcare Professionals (https://www.cdc.gov/coronavirus/2019-nc ov/hcp/index.html) Additional information about this and ot her EUA tests can be found in provider and patient fact sheets at the following FDA website: https://www.fda.gov/medical-devices/lyrqjxbwohz-ejdcnii-2986-bondv-16-flsreurpk- kcl-gghirdmqwqibhu-uqjmwxf-devices/aytlt-tqafgwszmow-zexh SARS-Cov-2 RNA Source Trach Asp [facility] Specimen Anatomical Collection Method Collection Time Receive d Time (Source) Location / / Volume Laterality Tracheal 01/23/2022 12:44 01/23/2022 8:48 Aspirate AM EDT AM EDT Comment: Symptoms->COVID-19 Suspected Resulting Agency Comment Spec In Lab Ethan Hillman APRN MICROBIOLOGY - GENERAL ORDER JT Performing Organization Address City/[facility]/[place] [address] Film Library- Storage Only DX Chest (01/22/2022 9:02 PM EDT) Specimen (Source) Anatomical Location Collection Method / Collectio n Time Received Time / Laterality Volume Narrative RAD - 01/22/2022 9:02 PM EDT This exam is auto-finalizing. It's purpo se is for storage only. Ximena Robles MD IMG FILM LIBRARY ORDERABLES Performing Organization Address City/[facility]/ZIP Code Phon e Number RAD [place], [place] from Last 3 Months Additional Health Concerns Infection Onset Date Last Indicated History of COVID-19Comment: Retesting fo r COVID is not recommended unless infectious syndrome persists with no alternate explanation. 02/08/2022 02/08/2022 Positive test on 01/23/2022 Please do not retest prior to 04/25/2022 Please call Infection Prevention [phone] with questions. History of C. difficileComment: Patient has met the 5 C's 03/19/2022 and is eligible to end soap and water contact precautions. Currently on PO vanc prophylacticly due to getting antibiotics for tx. Insurance Payer Benefit Plan / Subscriber ID Effective Dates Phone Addre ss Type Group [place] [id number] 2021-Presen [phone] [address] [place] [address] Advance Directives Latest Code Status on File Code Status Date Activated Date Inactivated Comments Attempt Cardiopulmonary Resuscitation - 02/05/2022 10:03 PM 022 5:25 PM Inpatient Code Status decision made by: Patient Attempt Cardiopulmonary Resuscitation - 01/22/2022 8:49 PM 02/06/20 10:03 PM Inpatient Code Status decision made by: Patient Attempt Cardiopulmonary Resuscitation - 04/27/2021 7:24 AM 021 1:37 PM Inpatient Code Status decision made by: Healthcare Agent (DPOA) Name (and relationship if needed): Eric Holland Sr - Father Attempt Cardiopulmonary Resuscitation - 04/26/2021 7:37 PM 021 7:24 AM Inpatient Code Status decision made by: Healthcare Agent (DPOA) Name (and relationship if needed): Josefina Holland [facility] Full Code 05/02/2018 11:32 PM 05/03/2018 3:51 PM Does patient have capacity to make decision: Yes Care Teams Client Experience Consultant Relationship Specialty Start Date End Date None PCP - General 03/10/19 None
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
--- OUTSIDE RECORDS SUMMARY | 2022-04-21 11:03 | XMS_ITS | Encounter Summary ---
:1990 Author Organization [facility] [address] Care Team Providers Name Role Phone None Primary Care Provider Unavailable Encounter Details Date Type Department Care Team Description 03/25/2022 Telephone Cardiology at [facility] Fabiano Sierra MD [facility] [place] [address] CARDIOLOGY DEPT. [phone] [place] [id number] (Wo rk) Social History Tobacco Use Types [...] on file documented as of this encounter Miscellaneous Notes Telephone Encounter - Fabiano Sierra MD - 03/25/2022 5:00 PM EDT As the cardiology consult attending today, I was called by Mr. Packer's physician at [facility] regarding persistent tachycardia. The patient has denied any cardiac symptoms (is asymptomatic). ECG scanned today shows sinus tachycardia to the 110s and overall nonspecific (particularly given lack of s ymptoms) ST/T abnormalities. Prior ECG here from 02/04 shows borderline sinus tachycardia. His provider is going to administer IVFs and continue to monitor. He will call back with any additional concerns. I did suggest a non-urgent TTE to follow up on the reduced LV EF seen during the time of admission. documented in this encounter Plan of Treatment Upcoming Encounters Date Type Specialty Care Team Description 06/09/2022 Procedure visit Neurology Summer Wiggins MD [facility] NEUROLOGY DEPT [place], [place] [address] (Wo rk) Scheduled Procedures Name [...] prior to 04/25/2022 Please call Infection Prevention [phone] with questions. History of C. difficileComment: Patient has 03/19/202203/01 met the 5 C's and is eligible to end soap and water contact precautions. Currently on PO vanc prophylacticly due to getting antibiotics for tx. documented as of this encounter Care Teams Developer Relations Manager Relationship Specialty Start Date End Date None PCP - General 03/10/19 None documented as of this encounter
--- OUTSIDE RECORDS SUMMARY | 2022-04-21 11:03 | XMS_ITS | Encounter Summary ---
:1990 Author Organization [facility] [place] [address] Care Team Providers Name Role Phone None Primary Care Provider Unavailable Encounter Details Date Type Department Care Team Description 03/26/2022 Interpretation Only [facility] Katheryn Allan MD [address] [address] [place] [address] [phone] (Wo rk) Social History Tobacco Use Types [...] 06/09/2022 Procedure visit Neurology Summer Wiggins MD [facility] NEUROLOGY DEPT [place], [place] [address] (Wo rk) Scheduled Procedures Name Priority Associated Diagnoses Date/Time APPL SKIN SUB GRAFT HANDS, TO 100 SQ CM; Left ar m fasciotomy wound 1ST 25 SQ CM WOUND AREA (WRVU 1.83) documented as of this encounter Procedures Procedure Name Priority Date/Time Associated Diagnosis Comme nts US EXTREMITY VENOUS Routine 03/29/2022 11:33 AM R esults for this DUPLEX LEFT EDT procedure are i n the results section. documented in this encounter Results US EXTREMITY VENOUS DUPLEX LEFT (03/29/2022 11:33 AM EDT) [facility] Method Time Signature PT CLASS I RAD ADMITDTTM [id number] RAD PT RAD MD INFO [id number]^Moe^He RAD idi^^^MD EXAM DESC UEXTDUPL^US LE RAD VENOUS DUPLEX LEFT^RIS Anatomical Region Laterality Modality [...] patients who have questions, please contact the [facility] child adolescent care that requested your imaging first. ? Lisandro Pruett, Staff Physician Electronically Signed Final Report ?? 01:22 pm Narrative 03/29/2022 1:23 PM EDT Peripheral Venous Duplex ?(Signed Final 03/29/2022 01:22 pm) PATIENT INFO: ID #: ? [id number] ? : [birth year] (31 yrs)(M) Name: ? ERIC PACKER ?Visit Date:03/29/2022 11:34 am PERFORMED BY: Performed By: ? Larry SOTO, Marylou Attending: ?Herr HARTLEY, Lisandro Mueller Referred By: ?Katheryn Rosa Location: ? [facility] SERVICE(S) PROVIDED: [id number] - DVT Lower Extremity Limited L eft - [id number] INDICATIONS: left leg pain and edmea r/o [...] 03/29/2022 01:22 pm) PATIENT INFO: ID #: [id number] : [birth year] (31 yrs)( M) Name: ERIC PACKER Visit Date: 11:34 am PERFORMED BY: Performed By: Marylou Juarez RDMS Attending: Lisandro Pruett MD Referred By: Katheryn Rosa Location: [facility] SERVICE(S) PROVIDED: [id number] - DVT Lower Extremity Limited L eft - [id number] INDICATIONS: left leg pain and edmea r/o [...] patients who have questions, please contact the [facility] child adolescent care that requested your imaging first. Lisandro Pruett, Staff Physician Electronically Signed Final Report 03/29 01:22 pm Katheryn Rosa MD P[facility] IMAGES documented in this encounter Visit Diagnoses Not on filedocumented in this encounter Additional Health Concerns Infection Onset Date Last Indicated Resolved Time History of COVID-19Comment: Retesting fo r COVID is not recommended unless infectious syndrome persists with no alternate explanation. 02/08/2022 02/08/2022 Positive test on 01/23/2022 Please do not retest prior to 04/25/2022 Please call Infection Prevention [phone] with questions. History of C. difficileComment: Patient has 03/19/202203/01 met the 5 C's and is eligible to end soap and water contact precautions. Currently on PO vanc prophylacticly due to getting antibiotics for tx. documented as of this encounter Care Teams Reading Interventionist Relationship Specialty Start Date End Date None PCP - General 03/10/19 None documented as of this encounter
--- OUTSIDE RECORDS SUMMARY | 2022-04-21 11:03 | XMS_ITS | Encounter Summary ---
:1990 Author Organization [place] [address] Care Team Providers Name Role Phone None Primary Care Provider Unavailable Encounter Details Date Type Department Care Team Description 03/23/2022 Hospital Encounter Ambulance Service at Jesus Treviño MD [address] [place], [place] [address] [place] [address] [phone] (Wo rk) Social History Tobacco Use Types [...] on file documented as of this encounter Medications at Time of Discharge Medication Sig Dispensed Refills Start Date End Date calcium carbonate (Tums) Take 1 tablet by 99 03/23 200 mg calcium (500 mg) mouth 3 times daily Tablet, Chewable (with meals). HYDROmorphone (Dilaudid) Take 1 tablet by 0 03/23 2 mg Tablet mouth every 4 hours as needed for Pain (for moderate pain (4-6)). HYDROmorphone (Dilaudid) Take 1 tablet by 0 03/23 4 mg Tablet mouth every 4 hours as needed for Pain (for severe pain (7-10)). acetaminophen (Tylenol) Take 2 tablets by 30 tablet 03/23 500 mg Tablet mouth every 8 hours. ascorbic acid, Vitamin Take 1 tablet by 30 tablet 022 C, (Vitamin C) 250 mg mouth daily. Tablet EPINEPHrine 0.3 mg/0.3 Inject 0.3 mL IM 1 kit 0 021 mL Auto-Injector once as needed for allergic reaction (Throat tight, difficulty breathing). Call 911 as directed. triamcinolone (KENALOG) Apply topically 3 60 mL 0 02/22 0.1 % Lotion times daily. docusate sodium (Colace) Take 1 capsule by 20 capsule 03/0204/02/2022 100 mg Capsule mouth 2 times daily for 10 days. dronabinoL (Marinol) 10 Take 1 capsule by 14 capsule 0 03/2303/30/2022 mg Capsule mouth 2 times daily for 7 days. vancomycin (Vancocin) Take 1 capsule by 12 capsule 0 022 03/26/2022 125 mg Capsule mouth 4 times daily for 3 days. documented as of this encounter Plan of Treatment Upcoming Encounters Date Type Specialty Care Team Description 06/09/2022 Procedure visit Neurology Summer Wiggins MD [facility] NEUROLOGY DEPT [place], [place] [address] (Wo rk) Scheduled Procedures Name [...] prior to 04/25/2022 Please call Infection Prevention [phone] with questions. History of C. difficileComment: Patient has 03/19/202203/01 met the 5 C's and is eligible to end soap and water contact precautions. Currently on PO vanc prophylacticly due to getting antibiotics for tx. documented as of this encounter Care Teams Impregnating Tank Operator Relationship Specialty Start Date End Date None PCP - General 03/10/19 None documented as of this encounter
--- OUTSIDE RECORDS SUMMARY | 2022-04-21 11:03 | XMS_ITS | Encounter Summary ---
:1990 Author Organization [facility] [place] [address] Care Team Providers Name Role Phone None Primary Care Provider Unavailable Encounter Details Date Type Department Care Team Description 03/25/2022 External [place] [address] Social History Tobacco Use Types Packs/Day Years [...] 06/09/2022 Procedure visit Neurology Summer Wiggins MD [facility] NEUROLOG[facility] DEPT [place], [place] [address] (Wo rk) Scheduled Procedures Name Priority Associated Diagnoses Date/Time APPL SKIN SUB GRAFT HANDS, TO 100 SQ CM; Left ar m fasciotomy wound 1ST 25 SQ CM WOUND AREA (WRVU 1.83) documented as of this encounter Procedures Procedure Name Priority Date/Time Associated Diagnosis Comme nts ECG SCAN Routine 03/25/2022 Results for thi s procedure are in the resu lts section. documented in this encounter Results Scan Doc: ECG (03/25/2022) Narrative This result has an attachment that is no t available. Historical Provider MEDIA MGR SCAN EXT ORDR/RSLT documented in this encounter Visit Diagnoses Not on filedocumented in this encounter Additional Health Concerns Infection Onset Date Last Indicated Resolved Time History of COVID-19Comment: Retesting fo r COVID is not recommended unless infectious syndrome persists with no alternate explanation. 02/08/2022 02/08/2022 Positive test on 01/23/2022 Please do not retest prior to 04/25/2022 Please call Infection Prevention [phone] with questions. History of C. difficileComment: Patient has 03/19/202203/01 met the 5 C's and is eligible to end soap and water contact precautions. Currently on PO vanc prophylacticly due to getting antibiotics for tx. documented as of this encounter Care Teams Medical Transcriber Relationship Specialty Start Date End Date None PCP - General 03/10/19 None documented as of this encounter
--- OUTSIDE RECORDS SUMMARY | 2022-04-21 11:04 | XMS_ITS | Encounter Summary ---
:1990 [place] [address] Care Team Providers Name Role Phone None Primary Care Provider Unavailable Reason for Visit Auth/Cert Specialty Diagnoses / Procedures Referred By Contact Refer red To Contact Diagnoses Cardiac arrest intubated med misuse/covid Ximena Robles MD [facility] Procedures ER IPI Admit [facility] [place] [place] [address] Referral ID Status Reason Start Date Expiration Date Visits Requ ested Visits Authorized [id number] 1 1 Encounter Details Date Type Department Care Team Description 03/10/2022 Anesthesia Event Main Operating Room Ayde Lucas DO [facility] ANESTHESIOLOGY [facility] [place] [address] [place] [address] [phone] Anesthesia Record Procedure Summary Procedure Name Responsible Anesthesia Start Anesthesia Stop Time Anesthesiologist Time APPL SKIN SUB GRAFT Ayde Rose DO 03/10/22 1130 03/10/22 1456 TO LEGS, TO 100 SQ CM; EA ADD'L 25 SQ CM AREA (WRVU 0.33) (Left Leg) Events Date Time Event Comment 03/10/2022 1104 1130 AN Verify 1130 Start 1130 An Start Data 1141 An Induction 1142 An Intubation 1143 Anesthesia Ready 1305 Break/Relief In I assumed care f or Break Relief before which we: 1. Identifie d the patient 2. Identified the responsible provider(s) 3. Reviewed the pertinent medica l history 4. Discussed the surgical plan an d course 5. Reviewed intra-op anesthesia manag ement and issues during anesthesia 6. Se t expectations for the relief (and/or post-pro cedure) period 7. Allowed opportunity for questions and acknowledgement of understanding Ayde Rose, DO 1335 Break/Relief Out 1448 Extubation/LMA Out 1456 an stop data 1456 Recovery or ICU Handoff Patient care was transferred to the destination unit staff after review of the patient's medica l history, current anesthetic/surgi moe status and plan, according to the Provider Handoff Checklist. 1456 Stop Name Total Propofol 1,100 mg PHENYLephrine 1,040 mcg Ondansetron 4 mg Ketamine INF 70.34 mg ceFAZolin 2 g Ketamine 10 mg/mL 30 mg Dexmedetomidine 8 mcg Dexmedetomidine INF 60.04 mcg HYDROmorphone 2 mg/mL 0.4 mg Lactated Ringers 0 mL Agents Name O2 Air N2O Sevoflurane (et) Blood No blood administrations on file. Lines, Drains, and Airways Type Details Placement Removal Incision 01/23/22; 0829; Left, 01/23/22 0829 by lateral; calf; vertical Emma Otero RN Incision 01/23/22; 0841; Left, 01/23/22 0841 by lateral; thigh; Emma Otero vertical RN Incision 01/23/22; 0858; Left; 01/23/22 0858 by arm (volar surface); Emma Otero, vertical RN PICC Line - Double Lumen 03/03/22; 1449; basilic 03/03/22 1449 b y vein (medial side of Adele Malik RN arm), right; pressure injectable catheter ([id number]); 5 Fr; 0 cm; 44 cm; 44 cm; placement verified by x-ray; superior vena cava; CCampRNVAS; distraction, intradermal injection Incision 03/10/22; 1306; Right, 03/10/22 1306 by anterior, lateral; Marylou Brock RN thigh NPWT 02/11/22; 1022; Left, 02/11/22 1022 by 03/13/22 0854 by anterior, lower; arm; Gaurang Honeycutt RN Percy, Kaija L, RN 03/13/22; 0854 NPWT 02/11/22; 1023; Left, 02/11/22 1023 by 03/13/22 0922 by anterior; thigh; Gaurang Honeycutt RN Percy, Kaija L, RN 03/13/22; 0922 Supraglottic Mask Ventilation: Not 03/10/22 1142 by 03/10/22 1448 by Attempted (0); LMA Sudhakar Persaud, uJdge, Type: iGel; LMA Size: SCALDER SCALDER 4; Inserted by: Hung documented in this encounter Social History Tobacco [...] encounter OR Notes Anesthesia Postprocedure Evaluation - Ayde Rose DO - 03/10/2022 4:47 PM EDT Department of Anesthesiology Post-procedure Note Patient: Eric Packer Procedure Summary Date: 03/10/22 Room / Location: [address] MAIN OR Anesthesia Start: 1130 Anesthesia Stop: 1456 Procedures: APPL SKIN SUB GRAFT TO LEGS, TO 100 SQ CM; EA ADD'L 25 SQ CM AREA (WRVU 0.33) (Left Leg) APPL SKIN SUB GRAFT TO ARMS, TO 100 SQ CM; EA ADD'L 25 SQ CM AREA (WRVU 0.33) (Left Arm) Diagnosis:(clean wound left forearm and left thigh) Surgeons: Dillon Betancourt MD Responsible Provider: Ayde Rose DO Anesthesia Type: general ASA Status: 3 All Anesthesia Providers: Anesthesiologist: Ayde Rose DO SCALDER: Sudhakar Persaud CRNA Vitals Value Taken Time BP 126/92 03/10/22 1600 Temp 36.3 ??C (97.3 ??F) 03/10/22 1600 Pulse 98 03/10/22 1611 Resp 11 03/10/22 1611 SpO2 99 % 03/10/22 1616 Pain Level 8 03/10/22 1545 Vitals shown include unvalidated device data. Patient Location: PACU[facility]LOCATED WITHIN [facility] Level of Consciousness: Awake and Alert Pain Management: Satisfactory Analgesia PONV: None Cardiovascular Status: Hemodynamically Stable Respiratory Status: Room Air and Stable Respiratory Status Postoperative Fluid Status: Intravascular EUvolemia Possible Anesthetic Complications: NONE apparent at time of evaluation Final Primary Anesthesia Type: General (The anesthetic type performed was the same as planned.) Comments: Anesthesia Preprocedure Evaluation - Ayde Rose DO - 03/10/2022 8:31 AM EDT Pre-Anesthesia Evaluation for: Eric Packer a 31 y.o. male. Procedure(s): APPL SKIN SUB GRAFT TO LEGS, TO 100 SQ CM; EA ADD'L 25 SQ CM AREA (WRVU 0.33) APPL SKIN SUB GRAFT TO ARMS, TO 100 SQ CM; EA ADD'L 25 SQ CM AREA (WRVU 0.33) Patient Active Problem List Diagnosis Date Noted ??? Severe protein-calorie malnutrition 02/09/2022 ??? Transaminitis 01/24/2022 ??? Aspiration pneumonia 01/24/2022 ? ? *SHAMAR ROBB compartment syndrome s/p fasciotimies, I&D 01/23/22, 01/26/22 (Dr. Garcia), I&D w/ partial closure 01/29/22 (Dr. Valdovinos), I&D 01/31/22 (Dr. [...] Arteriogram Lower Extremity 02/06/2022 Dagoberto Vivas MD [facility] INTERVENTIONL RAD ??? PRO DEBRIDEMENT BONE EA ADDL 20 SQCM 02/08/2022 EACH ADDITIONAL 20 SQ CM, OR PART THEREOF (WRVU 1.8) performed by Shar Chatterjee MD at [facility] PAIGE ? ? PRO DEBRIDEMENT BONE MUSCLE &/FASCIA 20 SQ CM/< Left 01/29/2022 DEBRIDEMENT SKIN, SUBCU, MUSCLE, BONE, LOWER EXTREMITY (WRVU 4.1) performed by Tom Valdovinos MD [facility] MAIN OR ? ? PRO DEBRIDEMENT BONE MUSCLE &/FASCIA 20 SQ CM/< Left 01/31/2022 DEBRIDEMENT SKIN, SUBCU, MUSCLE, BONE, LOWER EXTREMITY (WRVU 4.1) performed by Jose Branch MD at [facility] MAIN OR ? ? PRO DEBRIDEMENT BONE MUSCLE &/FASCIA 20 SQ CM/< Left 01/31/2022 DEBRIDEMENT SKIN, SUBCU, MUSCLE, BONE UPPER EXTREMITY (WRVU 4.1) performed by Jose Branch MDat [facility] MAIN OR ? ? PRO DEBRIDEMENT BONE MUSCLE &/FASCIA 20 SQ CM/< Left 02/02/2022 DEBRIDEMENT SKIN, SUBCU, MUSCLE, BONE UPPER EXTREMITY (WRVU 4.1) performed by Hina Avitia MD at [facility] MAIN OR ? ? PRO DEBRIDEMENT BONE MUSCLE &/FASCIA 20 SQ CM/< Left 02/02/2022 DEBRIDEMENT SKIN, SUBCU, MUSCLE, BONE, LOWER EXTREMITY (WRVU 4.1) performed by Hina Avitia MD at [facility] MAIN OR ? ? PRO DEBRIDEMENT MUSCLE AND FASCIA 20 SQ CM/< Left 01/26/2022 DEBRIDEMENT SKIN, SUBCU, MUSCLE, LOWER EXTREMITY (WRVU 2.7) performed by Sigifredo Garcia MD at [facility] OR ? ? PRO DEBRIDEMENT MUSCLE AND FASCIA 20 SQ CM/< Left 01/26/2022 DEBRIDEMENT SKIN, SUBCU, MUSCLE, UPPER EXTREMITY (WRVU 2.7) performed by Sigifredo Garcia MD at [facility] OR ? ? PRO DEBRIDEMENT MUSCLE AND FASCIA 20 SQ CM/< Left 02/05/2022 DEBRIDEMENT SKIN, SUBCU, MUSCLE, LOWER EXTREMITY (WRVU 2.7) performed by Tom Valdovinos MD at [facility] OR ? ? PRO DEBRIDEMENT MUSCLE AND FASCIA 20 SQ CM/< Left 02/04/2022 DEBRIDEMENT SKIN, SUBCU, MUSCLE, LOWER EXTREMITY (WRVU 2.7) performed by Sigifredo Garcia MD at [facility] OR ? ? PRO DEBRIDEMENT MUSCLE AND FASCIA 20 SQ CM/< Left 02/15/2022 DEBRIDEMENT SKIN, SUBCU, MUSCLE, UPPER EXTREMITY (WRVU 2.7) performed by Jayme Armstrong MD at [facility] OR ? ? PRO DEBRIDEMENT MUSCLE AND FASCIA 20 SQ CM/< Left 02/19/2022 DEBRIDEMENT SKIN, SUBCU, MUSCLE, LOWER EXTREMITY (WRVU 2.7) performed by Jayme Armstrong MD at [facility] OR ? ? PRO DEBRIDEMENT MUSCLE AND FASCIA 20 SQ CM/< Left 02/22/2022 DEBRIDEMENT SKIN, SUBCU, MUSCLE, LOWER EXTREMITY (WRVU 2.7) performed by Dillon Betancourt MD at [facility] OR ? ? PRO DEBRIDEMENT MUSCLE AND FASCIA 20 SQ CM/< Left 02/24/2022 DEBRIDEMENT SKIN, SUBCU, MUSCLE, LOWER EXTREMITY (WRVU 2.7) performed by Dillon Betancourt MD at [facility] OR ? ? PRO DEBRIDEMENT MUSCLE AND FASCIA 20 SQ CM/< Left 02/26/2022 DEBRIDEMENT SKIN, SUBCU, MUSCLE, UPPER EXTREMITY (WRVU 2.7) performed by Dillon Betancourt MD at [facility] OR ? ? PRO DEBRIDEMENT SUBCUTANEOUS TISSUE 20 SQCM/< Left 02/04/2022 DEBRIDEMENT SKIN AND SUBCU, UPPER EXTREMITY (WRVU 1.01) [facility] ? PRO DEBRIDEMENT SUBCUTANEOUS TISSUE 20 SQCM/< Left 02/08/2022 DEBRIDEMENT SKIN AND SUBCU, LOWER EXTREMITY (WRVU 1.01) performed by Shar Chatterjee MD at [facility] OR ? ? PRO DEBRIDEMENT SUBCUTANEOUS TISSUE 20 SQCM/< Left 02/09/2022 DEBRIDEMENT SKIN AND SUBCU, LOWER EXTREMITY (WRVU 1.01) performed by Shar Chatterjee MD at [facility] OR ? ? PRO DEBRIDEMENT SUBCUTANEOUS TISSUE 20 SQCM/< Left 02/11/2022 DEBRIDEMENT SKIN AND SUBCU, LOWER EXTREMITY (WRVU 1.01) performed by Dillon Betancourt MD at [facility] OR ? ? PRO DEBRIDEMENT SUBCUTANEOUS TISSUE 20 SQCM/< Left 02/13/2022 DEBRIDEMENT SKIN AND SUBCU, LOWER EXTREMITY (WRVU 1.01) performed by Shar Chatterjee MD at [facility] OR ? ? PRO DEBRIDEMENT SUBCUTANEOUS TISSUE 20 SQCM/< Left 02/15/2022 DEBRIDEMENT SKIN AND SUBCU, LOWER EXTREMITY (WRVU 1.01) performed by Jayme Armstrong MD at [facility] OR ? ? PRO DEBRIDEMENT SUBCUTANEOUS TISSUE 20 SQCM/< Left 02/17/2022 DEBRIDEMENT SKIN AND SUBCU, LOWER EXTREMITY (WRVU 1.01) performed by Jayme Armstrong MD at [facility] OR ??? PRO DECOMP FOREARM, 2 COMPART, W/O DEBRIDE Left 01/23/2022 FASCIOTOMY; FOREARM AND\OR WRIST, FLEXOR & EXTENS. COMP (WRVU 10.79) performed by Sigifredo Garcia MD at [facility] OR ??? PRO DECOMPRESS ANT/LAT+POST LEG CMPART Left 01/23/2022 FASCIOTOMY, LOWER LEG, ALL COMPARTMENTS (WRVU 7.82) performed by Sigifredo Garcia MD at [facility] OR ??? PRO DRESSING CHANGE UNDER ANESTHESIA Left 02/11/2022 DRESSING CHANGE (FOR OTHER THAN GALLOWAY) UNDER ANES., UPPER EXTREMITY (WRVU 0.86) performed by Dillon Betancourt MD at [facility] OR ??? PRO DRESSING CHANGE UNDER ANESTHESIA Left 02/13/2022 DRESSING CHANGE (FOR OTHER THAN GALLOWAY) UNDER ANES., UPPER EXTREMITY (WRVU 0.86) performed by Shar Chatterjee MD at [facility] OR ??? PRO DRESSING CHANGE UNDER ANESTHESIA Left 02/17/2022 DRESSING CHANGE (FOR OTHER THAN GALLOWAY) UNDER ANES., UPPER EXTREMITY (WRVU 0.86) performed by Jayme Armstrong MD at [facility] OR ??? PRO DRESSING CHANGE UNDER ANESTHESIA Left 02/19/2022 DRESSING CHANGE (FOR OTHER THAN GALLOWAY) UNDER ANES., UPPER EXTREMITY (WRVU 0.86) performed by Jayme Armstrong MD at [facility] OR ??? PRO DRESSING CHANGE UNDER ANESTHESIA Left 02/22/2022 DRESSING CHANGE (FOR OTHER THAN GALLOWAY) UNDER ANES., UPPER EXTREMITY (WRVU 0.86) performed by Dillon Betancourt MD at [facility] OR ??? PRO DRESSING CHANGE UNDER ANESTHESIA Left 02/24/2022 DRESSING CHANGE (FOR OTHER THAN GALLOWAY) UNDER ANES., UPPER EXTREMITY (WRVU 0.86) performed by Dillon Betancourt MD at [facility] OR ??? PRO DRESSING CHANGE UNDER ANESTHESIA Left 02/26/2022 DRESSING CHANGE (FOR OTHER THAN GALLOWAY) UNDER ANES., LOWER EXTREMITY (WRVU 0.86) performed by Dillon Betancourt MD at [facility] OR ??? PRO DRESSING CHANGE UNDER ANESTHESIA Left 02/26/2022 DRESSING CHANGE (FOR OTHER THAN GALLOWAY) UNDER ANES., UPPER EXTREMITY (WRVU 0.86) performed by Dillon Betancourt MD at [facility] OR ??? PRO DRESSING CHANGE UNDER ANESTHESIA Left 03/01/2022 DRESSING CHANGE (FOR OTHER THAN GALLOWAY) UNDER ANES., LOWER EXTREMITY (WRVU 0.86) performed by Chidi Sanabria MD at [facility] OR ??? PRO DRESSING CHANGE UNDER ANESTHESIA N/A 03/01/2022 DRESSING CHANGE (FOR OTHER THAN GALLOWAY) UNDER ANES., UPPER EXTREMITY (WRVU 0.86) performed by Chidi Sanabria MD at [facility] OR ? ? PRO I&D DEEP ABSCESS BURSA/HEMATOMA THIGH/KNEE REGION Left 02/06/2022 INCISION & DRAINAGE ABSCESS OR HEMATOMA, THIGH, KNEE SUPERFICIAL (WRVU 6.78) performed by Jayme Armstrong MD at [facility] OR ??? PRO INCIS OF HIP/THIGH FASCIA Left 01/23/2022 @FASCIOTOMY,THIGH OR HIP FOR COMPARTMENT SYNDROME (WRVU 12.89) performed by Sigifredo Garcia MD at [facility] MAIN OR ??? PRO NEGATIVE PRESSURE WOUND THERAPY, LESS THAN OR EQUAL TO 50 SQCM Left 02/05/2022 DRESSING CHANGE (VAC ASSISTED) UP TO 50SQ.CM (WRVU 0.55) performed by Orville Hennessy MD at [facility] MAIN OR ??? PRO NEGATIVE PRESSURE WOUND THERAPY, LESS THAN OR EQUAL TO 50 SQCM Left 02/05/2022 DRESSING CHANGE (VAC ASSISTED) UP TO 50SQ.CM (WRVU 0.55) performed by Tom Valdovinos MD at [facility] MAIN OR ??? PRO NEGATIVE PRESSURE WOUND THERAPY, LESS THAN OR EQUAL TO 50 SQCM Left 02/08/2022 DRESSING CHANGE (VAC ASSISTED) UP TO 50SQ.CM (WRVU 0.55) performed by Shar Chatterjee MD at [facility] MAIN OR ??? PRO NEGATIVE PRESSURE WOUND THERAPY, LESS THAN OR EQUAL TO 50 SQCM Left 03/03/2022 DRESSING CHANGE (VAC ASSISTED) UP TO 50SQ.CM (WRVU 0.55) performed by Chidi Sanabria MD at [facility] MAIN OR ??? PRO OPEN TREAT MANDIBLE CONDYLE FX, COMPL 04/27/2013 OPEN TREATMENT, COMPLEX MANDIBLE FX., MULTI APPROACH, W/ FIXATION performed by Kishore Neil MD at [facility] MAIN OR ??? PRO REVISE MEDIAN N/CARPAL TUNNEL SURG Left 01/23/2022 MEDIAN NERVE DECOMPRESSION (CARPAL TUNNEL RELEASE) (WRVU 4.97) performed by Sigifredo Garcia MD at [facility] MAIN OR ??? PRO SEC CLSR SURG WOUND/DEHSN EXTENSIVE/COMPLICATED Left 01/26/2022 SECONDARY CLOSURE SURGICAL WOUND OR DEHISCENCE, EXTENSIVE OR COMPLICATED, UPPER EXTREMITY (WRVU 12.04) performed by Sigifredo Garcia MD at [facility] MAIN OR Social History Tobacco Use [...] Physical Exam: Preprocedure Vitals Current as of 03/10/22 0831 BP: 147/95 Pulse: Resp: 16 SpO2: 92 Temp: 36.8 ??C (98.2 ??F) Height: 188 cm (6' 2) (03/03/22) Weight: 77.3 kg (170 lb 6.7 oz) (03/09/22) BMI: 21.88 IBW: 82.2 kg (181 lb 4.8 oz) Last edited 03/10/22 0430 by AD Airway Assessment: Mallampati: II TM distance: >3 FB Neck ROM: full Cardiovascular Assessment: Rhythm: regular system normal Pulmonary Assessment: pulmonary exam normal Dental Assessment: Misc Assessment: Patient is wearing No contact(s). IV access: Peripheral line Last Filed Perioperative Cognitive Screening None Anesthesia Plan: ASA 3 general, with a(n) intravenous induction 31 yo patient with who was admitted 01/23 with acute renal failure and Vtach arrest in setting of rhabdomyolysis from compartment syndrome after found down following fentanyl overdose, now s/p LUE and LLE fasciotomies s/p serial debridement and vac placement. Patient presents for STSG to lower extremities. Interpretation Summary: echo 12/2021 Wall thickness is mildly increased. . Left ventricular systolic function is mildly reduced. The left ventricular ejection fraction is 46% by Stacy's biplane. Mild global hypokinesis. Right ventricle is mildly dilated. Right ventricular systolic function is mildly decreased. No significant valvular abnormalities. Other details as below. IMPRESSION: Mild global hypokinesis. As compared to the prior echo report from 05/03/2018, the prior LVEF was normal. ?? 03/10/22 0545 WBC 7.2 RBC 3.13* HGB 9.1* HCT 27.3* MCV 87.2 MCH 29.1 MCHC 33.3 PLATELET 256 RDWCV 15.9* 03/10/22 0545 NA 142 K 4.0 CL 103 CO2 25 BUN 20 CREATININE 0.85 GLUCOSE 95 NPO Chart reviewed. No contraindications to proceeding with anesthetic. General with LMA Region - Other Informed Consent: Anesthetic plan and risks discussed with patient. Plan discussed with SCALDER and attending. Anesthesia Screening documented in this encounter Plan of Treatment Upcoming Encounters Date Type Specialty Care Team Description 06/09/2022 Procedure visit Neurology Summer Wiggins MD [facility] ER NEUROLOGY DEPT MYLENE[place]IP[place] SC 0375 (Wo rk) Scheduled Procedures Name Priority [...] MAR Action Action Date Dose Rate Site ceFAZolin (Ancef) 1 g in dextrose Given 03/10/2022 11:59 AM EDT 2 g 5% 50 mL infusion Intravenous, PRN, Starting on Tue03/10/22 at 1159, Until Tue03/10/22 at 1456, Administer over 30 Minutes, Anesthesia Intra-op dexmedeTOMIDine (Precedex) (4 mcg/mL) bolus Given 03/10/2022 11:41 AM EDT 8 mcg injection (Anesthsia) Intravenous, PRN, Starting on Tue03/10/22 at 1141, Until Tue03/10/22 at 1456, Anesthesia Intra-op, Routine dexmedeTOMIDine (Precedex) Rate/Dose 03/10/2022 1:31 0.2 mcg/kg/hr 3 .865 (4 mcg/mL) in sodium Change PM EDT mL/hr chloride 0.9% 50 mL infusion Intravenous, CONTINUOUS PRN, Starting on Tue03/10/22 at 1203, Until Tue03/10/22 at 1456, Anesthesia Intra-op New Bag 03/10/2022 12:03 PM EDT 0.4 mcg/kg/hr 7.73 mL/hr HYDROmorphone (Dilaudid) (2 mg/mL) Given 03/10/2022 12:24 PM EDT 0.4 mg multi-dose injection solution Intravenous, PRN, Starting on Tue03/10/22 at 1224, Until Tue03/10/22 at 1456, Anesthesia Intra-op, Routine ketamine (Ketalar) (10 mg/mL) New Bag 03/10/2022 11:54 0.6 mg/kg/h r 4.638 mL/hr injection AM EDT Intravenous, CONTINUOUS PRN, Starting on Tue03/10/22 at 1154, Until Tue03/10/22 at 1456, Anesthesia Intra-op, Routine ketamine (Ketalar) (10 mg/mL) IV bolus Given 03/10/2022 11:51 AM EDT 10 mg injection (Anesthesia) Intravenous, PRN, Starting on Tue03/10/22 at 1141, Until Tue03/10/22 at 1456, Anesthesia Intra-op Given 03/10/2022 11:41 AM EDT 20 mg lactated ringers infusion New Bag 03/10/2022 11:30 AM EDT Intravenous, CONTINUOUS PRN, Starting on Tue03/10/22 at 1130, Until Tue03/10/22 at 1456, Anesthesia Intra-op ondansetron (pf) (Zofran) (2 mg/mL) inje ction Given 03/10/2022 2:44 PM EDT 4 mg Intravenous, PRN, Starting on Tue03/10/22 at 1444, Until Tue03/10/22 at 1456, Anesthesia Intra-op, Routine PHENYLephrine in NS (PF) (JORDIN-SYNEPHRINE) Given 03/10/2022 2:26 PM EDT 240 mcg 0.8 mg/10 mL (80 mcg/mL) multi-dose injection Syrg Intravenous, PRN, Starting on Tue03/10/22 at 1249, Until Tue03/10/22 at 1456, Anesthesia Intra-op, Routine Given 03/10/2022 2:16 PM EDT 160 mcg Given 03/10/2022 2:03 PM EDT 160 mcg propofoL (Diprivan) 10 mg/mL bolus injection Given 05/2022 2:56 PM EDT 900 mg (Anesthesia) Intravenous, PRN, Starting on Tue03/10/22 at 1141, Until Tue03/10/22 at 1456, Anesthesia Intra-op Given 03/10/2022 11:41 AM EDT 200 mg documented in this encounter Additional Health Concerns Infection Onset Date Last Indicated Resolved Time C. difficileComment: Josefagibe to end 02/01/2022 02/01/2022 03/19/2022 3:02 PM EDT S&W CP History of COVID-19Comment: Retesting fo r COVID is not recommended unless infectious syndrome persists with no alternate explanation. 02/08/2022 02/08/2022 Positive test on 01/23/2022 Please do not retest prior to 04/25/2022 Please call Infection Prevention [phone] with questions. documented as of this encounter Care Teams Aviation Tactical Readiness Officer Relationship Specialty Start Date End Date None PCP - General 03/10/19 None documented as of this encounter
--- OUTSIDE RECORDS SUMMARY | 2022-04-21 11:04 | XMS_ITS | Encounter Summary ---
:1990 Author Organization [facility] Address [place] [id number] Care Team Providers Name Role Phone None Primary Care Provider Unavailable Reason for Visit Auth/Cert Specialty Diagnoses / Procedures Referred By Contact Refer red To Contact Diagnoses Cardiac arrest intubated med misuse/covid Ximena Robles MD [facility] Procedures ER IPI Admit [facility] [place] [address] Referral ID Status Reason Start Date Expiration Date Visits Requ ested Visits Authorized [id number] 1 1 Encounter Details Date Type Department Care Team Description 03/13/2022 Anesthesia Event Main Operating Room Lam Leija MD [facility] ANESTHESIOLOGY [place] [id number] [facility] Alfonso Cabello CRNA [facility] [place] [address] [facility] [place] [address] Anesthesia Record Procedure Summary Procedure Name Responsible Anesthesia Start Anesthesia Stop Time Anesthesiologist Time DRESSING CHANGE Jerri Jain MD 03/13/22 0809 03/13/22 0935 (FOR OTHER THAN GALLOWAY) UNDER ANES., UPPER EXTREMITY (WRVU 0.86) (Left Arm Lower) Events Date Time Event Comment 03/13/2022 0809 AN Verify 0809 Start 0809 An Start Data 0815 An Induction 0816 An Intubation 0820 Quick Note Pt on antibiotic s on the floor 0822 Anesthesia Ready 0924 Extubation/LMA Out 0929 an stop data 0929 Recovery or ICU Handoff Patient care was transferred to the destination unit staff after review of the patient's medica l history, current anesthetic/surgi moe status and plan, according to the Provider Handoff Checklist. 0935 Stop 1643 Name Total Propofol 200 mg fentaNYL 100 mcg Ondansetron 4 mg Dexmedetomidine 4 mcg Sodium Chloride 0.9% 200 mL Agents Name O2 Air N2O Sevoflurane (et) Blood No blood administrations on file. Lines, Drains, and Airways Type Details Placement Removal Incision 01/23/22; 0829; Left, 01/23/22 0829 by lateral; calf; vertical Emma Otero, RN Incision 01/23/22; 0841; Left, 01/23/22 0841 by lateral; thigh; Emma Otero, vertical RN Incision 01/23/22; 0858; Left; 01/23/22 0858 by arm (volar surface); Emma Otero P, vertical RN PICC Line - Double Lumen 03/03/22; 1449; basilic 03/03/22 1449 b y vein (medial side of Adele Malik RN arm), right; pressure injectable catheter ([id number]); 5 Fr; 0 cm; 44 cm; 44 [...] Percy, Kaija L, RN 03/13/22; 0922 Supraglottic LMA Type: iGel; LMA 03/13/22 0816 by 03/13/22 09 24 by Size: 4; Inserted by: Karthikeyan Mckeon Patel, S hreena K, S.Patel, CRNA CRNA ELECTRON GUN INSPECTOR documented in this encounter Social History Tobacco [...] encounter OR Notes Anesthesia Postprocedure Evaluation - Jerri Jain MD - 03/13/2022 4:42 PM EDT Department of Anesthesiology Post-procedure Note Patient: Eric Packer Procedure Summary Date: 03/13/22 Room / Location: [address] MAIN OR Anesthesia Start: 808 Anesthesia Stop: 934 Procedures: DRESSING CHANGE (FOR OTHER THAN GALLOWAY) UNDER ANES., UPPER EXTREMITY (WRVU 0.86) (Left Arm Lower) DRESSING CHANGE (FOR OTHER THAN GALLOWAY) UNDER ANES., LOWER EXTREMITY (WRVU 0.86) (Left Leg Upper) Diagnosis: (split thickness skin graft dressing change, concern for pseudomonas) Surgeons: Chidi Sanabria MD Responsible Provider: Jerri Jain MD Anesthesia Type: general ASA Status: 3 All Anesthesia Providers: Anesthesiologist: Jerri Jain MD ELECTRON GUN INSPECTOR: Karthikeyan Mckeon CRNA Vitals Value Taken Time BP 139/97 03/13/22 1015 Temp 36.3 ??C (97.3 ??F) 03/13/22 1015 Pulse 104 03/13/22 1020 Resp 16 03/13/22 1020 SpO2 99 % 03/13/22 1021 Pain Level 7 03/13/22 1015 Vitals shown include unvalidated device data. Patient Location: PACU/[facility] Level of Consciousness: Conscious but Sleepy Pain Management: Satisfactory Analgesia PONV: None Cardiovascular Status: At Baseline and Hemodynamically Stable Respiratory Status: At Baseline and Supplemental O2 (NC or FM) Postoperative Fluid Status: Intravascular EUvolemia Possible Anesthetic Complications: NONE apparent at time of evaluation Final Primary Anesthesia Type: General (The anesthetic type performed was the same as planned.) Comments: Jerri Jain MD Anesthesia Preprocedure Evaluation - Jerri Jain MD - 03/12/2022 4:38 PM EDT Pre-Anesthesia Evaluation for: Eric Packer a [...] Arteriogram Lower Extremity 02/06/2022 Dagoberto Vivas MD [facility] INTERVENTIONL RAD ??? PRO DEBRIDEMENT BONE EA ADDL 20 SQCM 02/08/2022 EACH ADDITIONAL 20 SQ CM, OR PART THEREOF (WRVU 1.8) performed by Shar Chatterjee MD at [facility] PAIGE ? ? PRO DEBRIDEMENT BONE MUSCLE &/FASCIA 20 SQ CM/< Left 01/29/2022 DEBRIDEMENT SKIN, SUBCU, MUSCLE, BONE, LOWER EXTREMITY (WRVU 4.1) performed by Tom Valdovinos MD [facility] MAIN OR ? ? PRO DEBRIDEMENT BONE MUSCLE &/FASCIA 20 SQ CM/< Left 01/31/2022 DEBRIDEMENT SKIN, SUBCU, MUSCLE, BONE, LOWER EXTREMITY (WRVU 4.1) performed by Jose Branch MD at [facility] MAIN OR ? ? PRO DEBRIDEMENT BONE MUSCLE &/FASCIA 20 SQ CM/< Left 01/31/2022 DEBRIDEMENT SKIN, SUBCU, MUSCLE, BONE UPPER EXTREMITY (WRVU 4.1) performed by Jose Branch MDat [facility] MAIN OR ? ? PRO DEBRIDEMENT BONE MUSCLE &/FASCIA 20 SQ CM/< Left 02/02/2022 DEBRIDEMENT SKIN, SUBCU, MUSCLE, BONE UPPER EXTREMITY (WRVU 4.1) performed by Hina Avitia MD at [facility] MAIN OR ? ? PRO DEBRIDEMENT BONE MUSCLE &/FASCIA 20 SQ CM/< Left 02/02/2022 DEBRIDEMENT SKIN, SUBCU, MUSCLE, BONE, LOWER EXTREMITY (WRVU 4.1) performed by Hina Avitia MD at [facility] MAIN OR ? ? PRO DEBRIDEMENT MUSCLE AND FASCIA 20 SQ CM/< Left 01/26/2022 DEBRIDEMENT SKIN, SUBCU, MUSCLE, LOWER EXTREMITY (WRVU 2.7) performed by Sigifredo Garcia MD at [facility] MAIN OR ? ? PRO DEBRIDEMENT MUSCLE AND FASCIA 20 SQ CM/< Left 01/26/2022 DEBRIDEMENT SKIN, SUBCU, MUSCLE, UPPER EXTREMITY (WRVU 2.7) performed by Sigifredo Garcia MD at [facility] MAIN OR ? ? PRO DEBRIDEMENT MUSCLE AND FASCIA 20 SQ CM/< Left 02/05/2022 DEBRIDEMENT SKIN, SUBCU, MUSCLE, LOWER EXTREMITY (WRVU 2.7) performed by Tom Valdovinos MD at [facility] MAIN OR ? ? PRO DEBRIDEMENT MUSCLE AND FASCIA 20 SQ CM/< Left 02/04/2022 DEBRIDEMENT SKIN, SUBCU, MUSCLE, LOWER EXTREMITY (WRVU 2.7) performed by Sigifredo Garcia MD at [facility] OR ? ? PRO DEBRIDEMENT MUSCLE AND FASCIA 20 SQ CM/< Left 02/15/2022 DEBRIDEMENT SKIN, SUBCU, MUSCLE, UPPER EXTREMITY (WRVU 2.7) performed by Jayme Armstrong MD at [facility] OR ? ? PRO DEBRIDEMENT MUSCLE AND FASCIA 20 SQ CM/< Left 02/19/2022 DEBRIDEMENT SKIN, SUBCU, MUSCLE, LOWER EXTREMITY (WRVU 2.7) performed by Jayme Armstrong MD at [facility] OR ? ? PRO DEBRIDEMENT MUSCLE AND FASCIA 20 SQ CM/< Left 02/22/2022 DEBRIDEMENT SKIN, SUBCU, MUSCLE, LOWER EXTREMITY (WRVU 2.7) performed by Dillon Betancourt MD at [facility] OR ? ? PRO DEBRIDEMENT MUSCLE AND FASCIA 20 SQ CM/< Left 02/24/2022 DEBRIDEMENT SKIN, SUBCU, MUSCLE, LOWER EXTREMITY (WRVU 2.7) performed by Dillon Betancourt MD at [facility] OR ? ? PRO DEBRIDEMENT MUSCLE AND FASCIA 20 SQ CM/< Left 02/26/2022 DEBRIDEMENT SKIN, SUBCU, MUSCLE, UPPER EXTREMITY (WRVU 2.7) performed by Dillon Betancourt MD at [facility] OR ? ? PRO DEBRIDEMENT SUBCUTANEOUS TISSUE 20 SQCM/< Left 02/04/2022 DEBRIDEMENT SKIN AND SUBCU, UPPER EXTREMITY (WRVU 1.01) [facility] ? ? PRO DEBRIDEMENT SUBCUTANEOUS TISSUE 20 SQCM/< Left 02/08/2022 DEBRIDEMENT SKIN AND SUBCU, LOWER EXTREMITY (WRVU 1.01) performed by Shar Chatterjee MD at [facility] OR ? ? PRO DEBRIDEMENT SUBCUTANEOUS TISSUE 20 SQCM/< Left 02/09/2022 DEBRIDEMENT SKIN AND SUBCU, LOWER EXTREMITY (WRVU 1.01) performed by Shar Chatterjee MD at [facility] OR ? ? PRO DEBRIDEMENT SUBCUTANEOUS TISSUE 20 SQCM/< Left 02/11/2022 DEBRIDEMENT SKIN AND SUBCU, LOWER EXTREMITY (WRVU 1.01) performed by Dillon Betancourt MD at [facility] MAIN OR ? ? PRO DEBRIDEMENT SUBCUTANEOUS TISSUE 20 SQCM/< Left 02/13/2022 DEBRIDEMENT SKIN AND SUBCU, LOWER EXTREMITY (WRVU 1.01) performed by Shar Chatterjee MD at [facility] OR ? ? PRO DEBRIDEMENT SUBCUTANEOUS TISSUE 20 SQCM/< Left 02/15/2022 DEBRIDEMENT SKIN AND SUBCU, LOWER EXTREMITY (WRVU 1.01) performed by Jayme Armstrong MD at [facility] OR ? ? PRO DEBRIDEMENT SUBCUTANEOUS TISSUE 20 SQCM/< Left 02/17/2022 DEBRIDEMENT SKIN AND SUBCU, LOWER EXTREMITY (WRVU 1.01) performed by Jayme Armstrong MD at [facility] OR ??? PRO DECOMP FOREARM, 2 COMPART, W/O DEBRIDE Left 01/23/2022 FASCIOTOMY; FOREARM AND\OR WRIST, FLEXOR & EXTENS. COMP (WRVU 10.79) performed by Sigifredo Garcia MD at [facility] OR ??? PRO DECOMPRESS ANT/LAT+POST LEG CMPART Left 01/23/2022 FASCIOTOMY, LOWER LEG, ALL COMPARTMENTS (WRVU 7.82) performed by Sigifredo Garcia MD at [facility] OR ??? PRO DRESSING CHANGE UNDER ANESTHESIA Left 02/11/2022 DRESSING CHANGE (FOR OTHER THAN GALLOWAY) UNDER ANES., UPPER EXTREMITY (WRVU 0.86) performed by Dillon Betancourt MD at [facility] OR ??? PRO DRESSING CHANGE UNDER ANESTHESIA Left 02/13/2022 DRESSING CHANGE (FOR OTHER THAN GALLOWAY) UNDER ANES., UPPER EXTREMITY (WRVU 0.86) performed by Shar Chatterjee MD at [facility] OR ??? PRO DRESSING CHANGE UNDER ANESTHESIA Left 02/17/2022 DRESSING CHANGE (FOR OTHER THAN GALLOWAY) UNDER ANES., UPPER EXTREMITY (WRVU 0.86) performed by Jayme Armstrong MD at [facility] OR ??? PRO DRESSING CHANGE UNDER ANESTHESIA Left 02/19/2022 DRESSING CHANGE (FOR OTHER THAN GALLOWAY) UNDER ANES., UPPER EXTREMITY (WRVU 0.86) performed by Jayme Armstrong MD at [facility] OR ??? PRO DRESSING CHANGE UNDER ANESTHESIA Left 02/22/2022 DRESSING CHANGE (FOR OTHER THAN GALLOWAY) UNDER ANES., UPPER EXTREMITY (WRVU 0.86) performed by Dillon Betancourt MD at [facility] OR ??? PRO DRESSING CHANGE UNDER ANESTHESIA Left 02/24/2022 DRESSING CHANGE (FOR OTHER THAN GALLOWAY) UNDER ANES., UPPER EXTREMITY (WRVU 0.86) performed by Dillon Betancourt MD at [facility] OR ??? PRO DRESSING CHANGE UNDER ANESTHESIA Left 02/26/2022 DRESSING CHANGE (FOR OTHER THAN GALLOWAY) UNDER ANES., LOWER EXTREMITY (WRVU 0.86) performed by Dillon Betancourt MD at [facility] OR ??? PRO DRESSING CHANGE UNDER ANESTHESIA Left 02/26/2022 DRESSING CHANGE (FOR OTHER THAN GALLOWAY) UNDER ANES., UPPER EXTREMITY (WRVU 0.86) performed by Dillon Betancourt MD at [facility] OR ??? PRO DRESSING CHANGE UNDER ANESTHESIA Left 03/01/2022 DRESSING CHANGE (FOR OTHER THAN GALLOWAY) UNDER ANES., LOWER EXTREMITY (WRVU 0.86) performed by Chidi Sanabria MD at [facility] OR ??? PRO DRESSING CHANGE UNDER ANESTHESIA N/A 03/01/2022 DRESSING CHANGE (FOR OTHER THAN GALLOWAY) UNDER ANES., UPPER EXTREMITY (WRVU 0.86) performed by Chidi Sanabria MD at [facility] OR ? ? PRO I&D DEEP ABSCESS BURSA/HEMATOMA THIGH/KNEE REGION Left 02/06/2022 INCISION & DRAINAGE ABSCESS OR HEMATOMA, THIGH, KNEE SUPERFICIAL (WRVU 6.78) performed by Jayme Armstrong MD at [facility] OR ??? PRO INCIS OF HIP/THIGH FASCIA Left 01/23/2022 @FASCIOTOMY,THIGH OR HIP FOR COMPARTMENT SYNDROME (WRVU 12.89) performed by Sigifredo Garcia MD at [facility] OR ??? PRO NEGATIVE PRESSURE WOUND THERAPY, LESS THAN OR EQUAL TO 50 SQCM Left 02/05/2022 DRESSING CHANGE (VAC ASSISTED) UP TO 50SQ.CM (WRVU 0.55) performed by Orville Hennessy MD at [facility] OR ??? PRO NEGATIVE PRESSURE WOUND THERAPY, LESS THAN OR EQUAL TO 50 SQCM Left 02/05/2022 DRESSING CHANGE (VAC ASSISTED) UP TO 50SQ.CM (WRVU 0.55) performed by Tom Valdovinos MD at [facility] MAIN OR ??? PRO NEGATIVE PRESSURE WOUND THERAPY, LESS THAN OR EQUAL TO 50 SQCM Left 02/08/2022 DRESSING CHANGE (VAC ASSISTED) UP TO 50SQ.CM (WRVU 0.55) performed by Shar Chatterjee MD at [facility] MAIN OR ??? PRO NEGATIVE PRESSURE WOUND THERAPY, LESS THAN OR EQUAL TO 50 SQCM Left 03/03/2022 DRESSING CHANGE (VAC ASSISTED) UP TO 50SQ.CM (WRVU 0.55) performed by Chidi Sanabria MD at [facility] MAIN OR ??? PRO OPEN TREAT MANDIBLE CONDYLE FX, COMPL 04/27/2013 OPEN TREATMENT, COMPLEX MANDIBLE FX., MULTI APPROACH, W/ FIXATION performed by Kishore Neil MD at [facility] MAIN OR ??? PRO REVISE MEDIAN N/CARPAL TUNNEL SURG Left 01/23/2022 MEDIAN NERVE DECOMPRESSION (CARPAL TUNNEL RELEASE) (WRVU 4.97) performed by Sigifredo Garcia MD at [facility] MAIN OR ??? PRO SEC CLSR SURG WOUND/DEHSN EXTENSIVE/COMPLICATED Left 01/26/2022 SECONDARY CLOSURE SURGICAL WOUND OR DEHISCENCE, EXTENSIVE OR COMPLICATED, UPPER EXTREMITY (WRVU 12.04) performed by Sigifredo Garcia MD at [facility] MAIN OR ??? PRO SKIN SUB GRAFT TRNK/ARM/LEG AREA UNDER 100SQCM EA ADL 25SQCM Left 03/10/2022 APPL SKIN SUB GRAFT TO LEGS, TO 100 SQ CM; EA ADD'L 25 SQ CM AREA (WRVU 0.33) performed by Dillon Betancourt MD at [facility] MAIN OR ??? PRO SKIN SUB GRAFT TRNK/ARM/LEG AREA UNDER 100SQCM EA ADL 25SQCM Left 03/10/2022 APPL SKIN SUB GRAFT TO ARMS, TO 100 SQ CM; EA ADD'L 25 SQ CM AREA (WRVU 0.33) performed by Dillon Betancourt MD at [facility] MAIN OR Social History Tobacco Use [...] supraglottic airway Region - Other Informed Consent: Anesthesia Screening documented in this encounter Plan of Treatment Upcoming Encounters Date Type Specialty Care Team Description 06/09/2022 Procedure visit Neurology Summer Wiggins MD [facility] NEUROLOGY DEPT [place], [place] [address] (Wo rk) Scheduled Procedures Name [...] Dose Rate Site dexmedeTOMIDine (Precedex) (4 Given 03/13/2022 9:18 AM EDT 4 mcg mcg/mL) bolus injection (Anesthsia) Intravenous, PRN, Starting on 03/13/22 at 0918, Until 03/13/22 at 0935, Anesthesia Intra-op, Routine fentaNYL (pf) (50 mcg/mL) multi-dose Given 03/13/2022 9:11 AM ED T 25 mcg injection Intravenous, PRN, Starting on 03/13/22 at 0815, Until 03/13/22 at 0935, Anesthesia Intra-op, Routine Given 03/13/2022 8:42 AM EDT 25 mcg Given 03/13/2022 8:15 AM EDT 50 mcg ondansetron (pf) (Zofran) (2 mg/mL) inje ction Given 03/13/2022 9:11 AM EDT 4 mg Intravenous, PRN, Starting on 03/13/22 at 0911, Until 03/13/22 at 0935, Anesthesia Intra-op, Routine propofoL (Diprivan) 10 mg/mL bolus injection Given 8:15 AM EDT 200 mg (Anesthesia) Intravenous, PRN, Starting on 03/13/22 at 0815, Until 03/13/22 at 0935, Anesthesia Intra-op sodium chloride 0.9% infusion New Bag 03/13/2022 8:09 AM EDT Intravenous, CONTINUOUS PRN, Starting on 03/13/22 at 0809, Until 03/13/22 at 0935, Anesthesia Intra-op documented in this encounter Additional [...] prior to 04/25/2022 Please call Infection Prevention [phone] with questions. documented as of this encounter Care Teams Roving Changer Relationship Specialty Start Date End Date None PCP - General 03/10/19 None documented as of this encounter
--- OUTSIDE RECORDS SUMMARY | 2022-04-21 11:05 | XMS_ITS | Encounter Summary ---
:1990 [place] [address] Care Team Providers Name Role Phone None Primary Care Provider Unavailable Reason for Visit Auth/Cert Specialty Diagnoses / Procedures Referred By Contact Refer red To Contact Diagnoses Cardiac arrest intubated med misuse/covid Ximena Robles MD [facility] Procedures ER IPI Admit [facility] Emergency Department [place] [address] Referral ID Status Reason Start Date Expiration Date Visits Requ ested Visits Authorized [id number] 1 1 Encounter Details Date Type Department Care Team Description 03/01/2022 Anesthesia Event Main Operating Room Kj Carrasco MD [facility] DR ANESTHESIOLOGY [place] [phone] Caden Chaves MD [facility] [place] [address] [place] [address] Anesthesia Record Procedure Summary Procedure Name Responsible Anesthesia Start Anesthesia Stop Time Anesthesiologist Time DRESSING CHANGE Zane Carrasco MD 03/01/222116 2 2204 (FOR OTHER THAN GALLOWAY) UNDER ANES., LOWER EXTREMITY (WRVU 0.86) (Left Leg) Events Date Time Event Comment 03/01/20222116 AN Verify 2117 Start 2116 An Start Data 2119 An Induction On pt bed per pt request 2121 An Intubation 2123 Anesthesia Ready Surgery on pt b ed 2146 Extubation/LMA Out 2158 an stop data 2203 Recovery or ICU Handoff Patient care was transferred to the destination unit staff after review of the patient's medica l history, current anesthetic/surgi moe status and plan, according to the Provider Handoff Checklist. 2203 Stop 2209 Name Total Propofol 200 mg fentaNYL 100 mcg Dexmedetomidine 24 mcg Ketamine 10 mg/mL 50 mg Lactated Ringers 600 mL Agents Name O2 Air N2O Sevoflurane (et) Blood No blood administrations on file. Lines, Drains, and Airways Type Details Placement Removal Incision 01/23/22; 0829; Left, 01/23/22 0829 by lateral; calf; vertical Emma Otero RN Incision 01/23/22; 0841; Left, 01/23/22 0841 by lateral; thigh; vertical Emma Otero RN Incision 01/23/22; 0858; Left; arm 01/23/22 0858 by (volar surface); vertical Emma Otero RN Incision 01/23/22; 0931; Left 01/23/22 0931 by 03/06/22 1 543 by (dorsal surface); arm; Emma Otero RN Lim anek, Lisa R, RN vertical; 03/06/22; 1543 Incision 01/26/22; 1625; Left; 01/26/22 1625 by 03/06/22 0738 by palm; dressing xerofrom, Toan Robbins RN L Wendy ba RN abd, aide 4inch aplied on 01/26 at 1730; 03/06/22; 0738 Incision 02/04/22; 1738; Left, 02/04/22 1738 by 03/06/22 1544 by lower; arm; 03/06/22; 1544 Rashmi, ÁNGEL Morejon Lisa R RN CVC 3 Lumen 02/07/22; 1300; internal 02/07/22 1300 by Maxham , 03/04/22 1400 by jugular vein, right; Natalya L, Jere Mares RN dialysis/apheresis catheter (re-wired from previous H.D. catheter, Trialysis catheter); Ultrasound Guidance; other (see comments) (13 faroese and 15 cm); Rogers Solano PRESENTATION MANAGER; 03/04/22; 1400 (removed today by ) NPWT 02/11/22; 1022; Left, 02/11/22 1022 by Binder, 0 03/13/22 0854 by anterior, lower; arm; ÁNGEL Morris Kai ja L, RN 03/13/22; 0854 NPWT 02/11/22; 1023; Left, 02/11/22 1023 by Binder, 0 03/13/22 0922 by anterior; thigh; 03/13/22; ÁNGEL Morris Kaija L, RN 0922 Supraglottic Mask Ventilation: Not 03/01/222121 by 03/01/22 2147 by Attempted (0); LMA Type: Shyla Sun S chriewer, Deborah M, Linda; LMA Size: 5 (4 large WATERMASTER WATERMASTER leak; switched to 5); Inserted by: cc, initial; ds, exchange documented in this encounter Social History Tobacco [...] encounter OR Notes Anesthesia Postprocedure Evaluation - Zane Carrasco MD - 03/01/2022 10:11 PM EDT Department of Anesthesiology Post-procedure Note Patient: Eric Packer Procedure Summary Date: 03/01/22 Room / Location: [address] MAIN OR Anesthesia Start: 2116 Anesthesia Stop: 2203 Procedures: DRESSING CHANGE (FOR OTHER THAN GALLOWAY) UNDER ANES., LOWER EXTREMITY (WRVU 0.86) (Left Leg) DRESSING CHANGE (FOR OTHER THAN GALLOWAY) UNDER ANES., UPPER EXTREMITY (WRVU 0.86) (N/A Leg) Diagnosis: (s/p compartment syndrome left upper and lower extremity) Surgeons: hCidi Sanabria MD Responsible Provider: Zane Carrasco MD Anesthesia Type: general ASA Status: 3 All Anesthesia Providers: Anesthesiologist: Zane Carrasco MD WATERMASTER: Shyla Sun CRNA Vitals Value Taken Time BP 121/88 03/01/221 Temp 36.5 ??C (97.7 ??F) 03/01/222199 Pulse 107 03/01/220 Resp 18 03/01/220 SpO2 100 % 03/01/222209 Pain Level 0 03/01/222199 Vitals shown include unvalidated device data. Patient Location: PACU/[facility] Level of Consciousness: Awake and Alert Pain Management: Satisfactory Analgesia PONV: None Cardiovascular Status: At Baseline and Hemodynamically Stable Respiratory Status: At Baseline and Room Air Postoperative Fluid Status: Intravascular EUvolemia Possible Anesthetic Complications: NONE apparent at time of evaluation Final Primary Anesthesia Type: General (The anesthetic type performed was the same as planned.) Comments: ZANE CARRASCO MD Anesthesia Preprocedure Evaluation - Zane Carrasco MD - 03/01/2022 10:09 PM EDT Pre-Anesthesia Evaluation for: Eric Packer a 31 y.o. male. Procedure(s): DRESSING CHANGE (FOR OTHER THAN GALLOWAY) UNDER ANES., LOWER EXTREMITY (WRVU 0.86) DRESSING CHANGE (FOR OTHER THAN GALLOWAY) UNDER ANES., UPPER EXTREMITY (WRVU 0.86) SPLIT THICK SKIN GRAFT,100 SQ CM OR LESS, ARMS (WRVU 9.9) Patient Active Problem List Diagnosis Date Noted ??? Severe protein-calorie malnutrition 02/09/2022 ??? Transaminitis 01/24/2022 ??? Aspiration pneumonia 01/24/2022 ? ? LUE, LLE compartment syndrome s/p fasciotimies, I&D 01/23/22, 01/26/22 [...] Arteriogram Lower Extremity 02/06/2022 Dagoberto Vivas MD [facility] INTERVENTIONL RAD ??? PRO DEBRIDEMENT BONE EA ADDL 20 SQCM 02/08/2022 EACH ADDITIONAL 20 SQ CM, OR PART THEREOF (WRVU 1.8) performed by Shar Chatterjee MD at [facility] PAIGE ? ? PRO DEBRIDEMENT BONE MUSCLE &/FASCIA 20 SQ CM/< Left 01/29/2022 DEBRIDEMENT SKIN, SUBCU, MUSCLE, BONE, LOWER EXTREMITY (WRVU 4.1) performed by Tom Valdovinos MD [facility] MAIN OR ? ? PRO DEBRIDEMENT BONE MUSCLE &/FASCIA 20 SQ CM/< Left 01/31/2022 DEBRIDEMENT SKIN, SUBCU, MUSCLE, BONE, LOWER EXTREMITY (WRVU 4.1) performed by Jose Branch MD at [facility] MAIN OR ? ? PRO DEBRIDEMENT BONE MUSCLE &/FASCIA 20 SQ CM/< Left 01/31/2022 DEBRIDEMENT SKIN, SUBCU, MUSCLE, BONE UPPER EXTREMITY (WRVU 4.1) performed by Jose Branch MDat [facility] MAIN OR ? ? PRO DEBRIDEMENT BONE MUSCLE &/FASCIA 20 SQ CM/< Left 02/02/2022 DEBRIDEMENT SKIN, SUBCU, MUSCLE, BONE UPPER EXTREMITY (WRVU 4.1) performed by Hina Avitia MD at [facility] OR ? ? PRO DEBRIDEMENT BONE MUSCLE &/FASCIA 20 SQ CM/< Left 02/02/2022 DEBRIDEMENT SKIN, SUBCU, MUSCLE, BONE, LOWER EXTREMITY (WRVU 4.1) performed by Hina Avitia MD at [facility] OR ? ? PRO DEBRIDEMENT MUSCLE AND FASCIA 20 SQ CM/< Left 01/26/2022 DEBRIDEMENT SKIN, SUBCU, MUSCLE, LOWER EXTREMITY (WRVU 2.7) performed by Sigifredo Garcia MD at [facility] OR ? ? PRO DEBRIDEMENT MUSCLE AND FASCIA 20 SQ CM/< Left 01/26/2022 DEBRIDEMENT SKIN, SUBCU, MUSCLE, UPPER EXTREMITY (WRVU 2.7) performed by Sigifredo Garcia MD at [facility] OR ? ? PRO DEBRIDEMENT MUSCLE AND FASCIA 20 SQ CM/< Left 02/05/2022 DEBRIDEMENT SKIN, SUBCU, MUSCLE, LOWER EXTREMITY (WRVU 2.7) performed by Tom Valdovinos MD at [facility] OR ? ? PRO DEBRIDEMENT MUSCLE AND FASCIA 20 SQ CM/< Left 02/04/2022 DEBRIDEMENT SKIN, SUBCU, MUSCLE, LOWER EXTREMITY (WRVU 2.7) performed by Sigifredo Garcia MD at [facility] OR ? ? PRO DEBRIDEMENT MUSCLE AND FASCIA 20 SQ CM/< Left 02/15/2022 DEBRIDEMENT SKIN, SUBCU, MUSCLE, UPPER EXTREMITY (WRVU 2.7) performed by Jayme Armstrong MD at [facility] OR ? ? PRO DEBRIDEMENT MUSCLE AND FASCIA 20 SQ CM/< Left 02/19/2022 DEBRIDEMENT SKIN, SUBCU, MUSCLE, LOWER EXTREMITY (WRVU 2.7) performed by Jayme Armstrong MD at [facility] OR ? ? PRO DEBRIDEMENT MUSCLE AND FASCIA 20 SQ CM/< Left 02/22/2022 DEBRIDEMENT SKIN, SUBCU, MUSCLE, LOWER EXTREMITY (WRVU 2.7) performed by Dillon Betancourt MD at [facility] OR ? ? PRO DEBRIDEMENT MUSCLE AND FASCIA 20 SQ CM/< Left 02/24/2022 DEBRIDEMENT SKIN, SUBCU, MUSCLE, LOWER EXTREMITY (WRVU 2.7) performed by Dillon Betancourt MD at [facility] OR ? ? PRO DEBRIDEMENT MUSCLE AND FASCIA 20 SQ CM/< Left 02/26/2022 DEBRIDEMENT SKIN, SUBCU, MUSCLE, UPPER EXTREMITY (WRVU 2.7) performed by Dillon Betancourt MD at [facility] OR ? ? PRO DEBRIDEMENT SUBCUTANEOUS TISSUE 20 SQCM/< Left 02/04/2022 DEBRIDEMENT SKIN AND SUBCU, UPPER EXTREMITY (WRVU 1.01) [facility] ? ? PRO DEBRIDEMENT SUBCUTANEOUS TISSUE 20 SQCM/< Left 02/08/2022 DEBRIDEMENT SKIN AND SUBCU, LOWER EXTREMITY (WRVU 1.01) performed by Shar Chatterjee MD at [facility] OR ? ? PRO DEBRIDEMENT SUBCUTANEOUS TISSUE 20 SQCM/< Left 02/09/2022 DEBRIDEMENT SKIN AND SUBCU, LOWER EXTREMITY (WRVU 1.01) performed by Shar Chatterjee MD at [facility] OR ? ? PRO DEBRIDEMENT SUBCUTANEOUS TISSUE 20 SQCM/< Left 02/11/2022 DEBRIDEMENT SKIN AND SUBCU, LOWER EXTREMITY (WRVU 1.01) performed by Dillon Betancourt MD at [facility] OR ? ? PRO DEBRIDEMENT SUBCUTANEOUS TISSUE 20 SQCM/< Left 02/13/2022 DEBRIDEMENT SKIN AND SUBCU, LOWER EXTREMITY (WRVU 1.01) performed by Shar Chatterjee MD at [facility] OR ? ? PRO DEBRIDEMENT SUBCUTANEOUS TISSUE 20 SQCM/< Left 02/15/2022 DEBRIDEMENT SKIN AND SUBCU, LOWER EXTREMITY (WRVU 1.01) performed by Jayme Armstrong MD at [facility] OR ? ? PRO DEBRIDEMENT SUBCUTANEOUS TISSUE 20 SQCM/< Left 02/17/2022 DEBRIDEMENT SKIN AND SUBCU, LOWER EXTREMITY (WRVU 1.01) performed by Jayme Armstrong MD at [facility] OR ??? PRO DECOMP FOREARM, 2 COMPART, W/O DEBRIDE Left 01/23/2022 FASCIOTOMY; FOREARM AND\OR WRIST, FLEXOR & EXTENS. COMP (WRVU 10.79) performed by Sigifredo Garcia MD at [facility] OR ??? PRO DECOMPRESS ANT/LAT+POST LEG CMPART Left 01/23/2022 FASCIOTOMY, LOWER LEG, ALL COMPARTMENTS (WRVU 7.82) performed by Sigifredo Garcia MD at [facility] OR ??? PRO DRESSING CHANGE UNDER ANESTHESIA Left 02/11/2022 DRESSING CHANGE (FOR OTHER THAN GALLOWAY) UNDER ANES., UPPER EXTREMITY (WRVU 0.86) performed by Dillon Betancourt MD at [facility] OR ??? PRO DRESSING CHANGE UNDER ANESTHESIA Left 02/13/2022 DRESSING CHANGE (FOR OTHER THAN GALLOWAY) UNDER ANES., UPPER EXTREMITY (WRVU 0.86) performed by Shar Chatterjee MD at [facility] OR ??? PRO DRESSING CHANGE UNDER ANESTHESIA Left 02/17/2022 DRESSING CHANGE (FOR OTHER THAN GALLOWAY) UNDER ANES., UPPER EXTREMITY (WRVU 0.86) performed by Jayme Armstrong MD at [facility] OR ??? PRO DRESSING CHANGE UNDER ANESTHESIA Left 02/19/2022 DRESSING CHANGE (FOR OTHER THAN GALLOWAY) UNDER ANES., UPPER EXTREMITY (WRVU 0.86) performed by Jayme Armstrong MD at [facility] OR ??? PRO DRESSING CHANGE UNDER ANESTHESIA Left 02/22/2022 DRESSING CHANGE (FOR OTHER THAN GALLOWAY) UNDER ANES., UPPER EXTREMITY (WRVU 0.86) performed by Dillon Betancourt MD at [facility] OR ??? PRO DRESSING CHANGE UNDER ANESTHESIA Left 02/24/2022 DRESSING CHANGE (FOR OTHER THAN GALLOWAY) UNDER ANES., UPPER EXTREMITY (WRVU 0.86) performed by Dillon Betancourt MD at [facility] OR ??? PRO DRESSING CHANGE UNDER ANESTHESIA Left 02/26/2022 DRESSING CHANGE (FOR OTHER THAN GALLOWAY) UNDER ANES., LOWER EXTREMITY (WRVU 0.86) performed by Dillon Betancourt MD at [facility] OR ??? PRO DRESSING CHANGE UNDER ANESTHESIA Left 02/26/2022 DRESSING CHANGE (FOR OTHER THAN GALLOWAY) UNDER ANES., UPPER EXTREMITY (WRVU 0.86) performed by Dillon Betancourt MD at [facility] OR ? ? PRO I&D DEEP ABSCESS BURSA/HEMATOMA THIGH/KNEE REGION Left 02/06/2022 INCISION & DRAINAGE ABSCESS OR HEMATOMA, THIGH, KNEE SUPERFICIAL (WRVU 6.78) performed by Jayme Armstrong MD at [facility] MAIN OR ??? PRO INCIS OF HIP/THIGH FASCIA Left 01/23/2022 @FASCIOTOMY,THIGH OR HIP FOR COMPARTMENT SYNDROME (WRVU 12.89) performed by Sigifredo Garcia MD at [facility] MAIN OR ??? PRO NEGATIVE PRESSURE WOUND THERAPY, LESS THAN OR EQUAL TO 50 SQCM Left 02/05/2022 DRESSING CHANGE (VAC ASSISTED) UP TO 50SQ.CM (WRVU 0.55) performed by Ovrille Hennessy MD at [facility] MAIN OR ??? PRO NEGATIVE PRESSURE WOUND THERAPY, LESS THAN OR EQUAL TO 50 SQCM Left 02/05/2022 DRESSING CHANGE (VAC ASSISTED) UP TO 50SQ.CM (WRVU 0.55) performed by Tom Valdovinos MD at [facility] MAIN OR ??? PRO NEGATIVE PRESSURE WOUND THERAPY, LESS THAN OR EQUAL TO 50 SQCM Left 02/08/2022 DRESSING CHANGE (VAC ASSISTED) UP TO 50SQ.CM (WRVU 0.55) performed by Shar Chatterjee MD at [facility] MAIN OR ??? PRO OPEN TREAT MANDIBLE CONDYLE FX, COMPL 04/27/2013 OPEN TREATMENT, COMPLEX MANDIBLE FX., MULTI APPROACH, W/ FIXATION performed by Kishore Neil MD at [facility] MAIN OR ??? PRO REVISE MEDIAN N/CARPAL TUNNEL SURG Left 01/23/2022 MEDIAN NERVE DECOMPRESSION (CARPAL TUNNEL RELEASE) (WRVU 4.97) performed by Sigifredo Garcia MD at [facility] MAIN OR ??? PRO SEC CLSR SURG WOUND/DEHSN EXTENSIVE/COMPLICATED Left 01/26/2022 SECONDARY CLOSURE SURGICAL WOUND OR DEHISCENCE, EXTENSIVE OR COMPLICATED, UPPER EXTREMITY (WRVU 12.04) performed by Sigifredo Garcia MD at [facility] MAIN OR Social History Tobacco Use [...] Physical Exam: Preprocedure Vitals Current as of 02/26/22 0650 BP: 176/115 Pulse: 111 Resp: 16 SpO2: 100 Temp: 37.2 ??C (98.9 ??F) Height: 182.9 cm (6' 0.01) (02/05/22) Weight: 89.7 kg (197 lb 12.8 oz) (02/24/22) BMI: 26.82 IBW: 77.6 kg (171 lb 1.9 oz) Last edited 02/26/22 0500 by SN Airway Assessment: Mallampati: II TM distance: >3 FB Neck ROM: full Cardiovascular Assessment: system normal Pulmonary Assessment: pulmonary exam normal [...] fasciotomies s/p serial debridement and vac placement. Presenting today for repeat I&D and wound vac changes. Serial consent on chart. ?? Patient on M/W/F dialysis ?? TTE on 01/23 showing LVEF 46% with mild hypokinesis and mildly dilated RV ?? Wall thickness is mildly increased. . Left [...] 05/03/2018, the prior LVEF was normal. ?? PMH significant for: Polysubstance use disorder - current tobacco smoking, EtOH, cocaine, opioids HTN NPO Plan for GA with LMA Region - Other Informed Consent: Anesthetic plan and risks discussed with patient. Plan discussed with WATERMASTER and attending. Anesthesia Screening documented in this encounter Plan of Treatment Upcoming Encounters Date Type Specialty Care Team Description 06/09/2022 Procedure visit Neurology Summer Wiggins MD [facility] NEUROLOGY DEPT [place], [place] [address] (Wo rk) Scheduled Procedures Name [...] Dose Rate Site dexmedeTOMIDine (Precedex) (4 Given 03/01/2022 9:43 PM EDT 8 mcg mcg/mL) bolus injection (Anesthsia) Intravenous, PRN, Starting on Tue03/01/22 at 2119, Until Tue03/01/22 at 2204, Anesthesia Intra-op, Routine Given 03/01/2022 9:31 PM EDT 8 mcg Given 03/01/2022 9:19 PM EDT 8 mcg fentaNYL (pf) (50 mcg/mL) multi-dose Given 03/01/2022 9:19 PM ED T 100 mcg injection Intravenous, PRN, Starting on Tue03/01/22 at 2119, Until Tue03/01/22 at 2204, Anesthesia Intra-op, Routine ketamine (Ketalar) (10 mg/mL) IV bolus Given 03/01/2022 9:23 PM EDT 25 mg injection (Anesthesia) Intravenous, PRN, Starting on Tue03/01/22 at 2119, Until Tue03/01/22 at 2204, Anesthesia Intra-op Given 03/01/2022 9:19 PM EDT 25 mg lactated ringers infusion New Bag 03/01/2022 9:17 PM EDT Intravenous, CONTINUOUS PRN, Starting on Tue03/01/22 at 2117, Until Tue03/01/22 at 2204, Anesthesia Intra-op propofoL (Diprivan) 10 mg/mL bolus injection Given 08/2021 9:20 PM EDT 200 mg (Anesthesia) Intravenous, PRN, Starting on Tue03/01/22 at 2120, Until Tue03/01/22 at 2204, Anesthesia Intra-op documented in this encounter Additional [...] prior to 04/25/2022 Please call Infection Prevention [phone] with questions. documented as of this encounter Care Teams Powder Blender Relationship Specialty Start Date End Date None PCP - General 03/10/19 None documented as of this encounter
--- OUTSIDE RECORDS SUMMARY | 2022-04-21 11:05 | XMS_ITS | Encounter Summary ---
:1990 Author Organization [facility] [place] [address] Care Team Providers Name Role Phone None Primary Care Provider Unavailable Reason for Visit Auth/Cert Specialty Diagnoses / Procedures Referred By Contact Refer red To Contact Diagnoses Cardiac arrest intubated med misuse/covid Ximena Robles MD [facility] Procedures ER IPI Admit [facility] [place] [address] Referral ID Status Reason Start Date Expiration Date Visits Requ ested Visits Authorized [id number] 1 1 Encounter Details Date Type Department Care Team Description 03/03/2022 Anesthesia Event Main Operating Room Balaji Pastrana MD [facility] [place] [address] [facility] Susie Johnson MD [facility] [place] [address] [place] [address] Anesthesia Record Procedure Summary Procedure Name Responsible Anesthesia Start Anesthesia Stop Time Anesthesiologist Time MODIFIER WOUND VAC Balaji Connors MD 03/03/22 1832 03/03/22 1920 (N/A ) Events Date Time Event Comment 03/03/2022 1832 AN Verify 1832 Start 1832 An Start Data 1836 An Induction 1840 An Intubation 184 Anesthesia Ready 1900 Extubation/LMA Out 1919 an stop data 1919 Recovery or ICU Handoff Patient care was transferred to the destination unit staff after review of the patient's medica l history, current anesthetic/surgi moe status and plan, according to the Provider Handoff Checklist. 1919 Stop 1935 Name Total Propofol 250 mg Propofol INF 65.71 mg Ondansetron 4 mg Sodium Chloride 0.9% 100 mL Agents Name O2 Air N2O Sevoflurane (et) Blood No blood administrations on file. Lines, Drains, and Airways Type Details Placement Removal Incision 01/23/22; 0829; Left, 01/23/22 0829 by lateral; calf; vertical Emma Otero RN Incision 01/23/22; 0841; Left, 01/23/22 0841 by lateral; thigh; Emma Otero P, vertical RN Incision 01/23/22; 0858; Left; 01/23/22 0858 by arm (volar surface); Emma Otero, vertical RN PICC Line - Double Lumen 03/03/22; 1449; basilic 03/03/22 1449 b y vein (medial side of Adele Malik RN arm), right; pressure injectable catheter ([id number]); 5 Fr; 0 cm; 44 cm; 44 cm; placement verified by x-ray; superior vena cava; [id number]; distraction, intradermal injection Incision 01/23/22; 0931; Left 01/23/22 0931 by 03/06/22 1 543 by (dorsal surface); arm; Emma Otero [place], Lisa R, vertical; 03/06/22; RN RN 1543 Incision 01/26/22; 1625; Left; 01/26/22 1625 by 03/06/22 0738 by palm; dressing ZaballaToan [place], Lisa R, xerofrom, abd, aide RN RN 4inch aplied on 01/26 at 1730; 03/06/22; 0738 Incision 02/04/22; 1738; Left, 02/04/22 1738 by 03/06/22 1544 by lower; arm; 03/06/22; Wendy Caraballo [place], Lisa R, 1544 RN RN CVC 3 Lumen 02/07/22; 1300; 02/07/22 1300 by 03/04/22 1400 b y internal jugular vein, Natalya Amador, ÁNGEL Mcguire y, Geoffrey C, right; deckhand oyster dredge/apheresis catheter (re-wired from previous H.D. catheter, Trialysis catheter); Ultrasound Guidance; other (see comments) (13 croatian and 15 cm); Rogers Solano PUG MILL OPERATOR HELPER; 03/04/22; 1400 (removed today by MD) NPWT 02/11/22; 1022; Left, 02/11/22 1022 by 03/13/22 0854 by anterior, lower; arm; Gaurang Honeycutt RN Percy, Kaija L, RN 03/13/22; 0854 NPWT 02/11/22; 1023; Left, 02/11/22 1023 by 03/13/22 0922 by anterior; thigh; Gaurang Honeycutt RN Percy, Kaija L, RN 03/13/22; 0922 ETT 03/03/22 1837 by 03/03/22 1900 b y Karthikeyan Mckeon Patel, Shreena K, CYTOLOGY TEACHER CYTOLOGY TEACHER Supraglottic Mask Ventilation: Not 03/03/22 1837 by 03/03/22 1900 by Attempted (0); LMA Karthikeyan Mckeon Patel, Shre ena K, Type: iGel; LMA Size: CYTOLOGY TEACHER CYTOLOGY TEACHER 4; Inserted by: MARIA ELENA Schulte documented in this encounter Social History Tobacco [...] encounter OR Notes Anesthesia Postprocedure Evaluation - Balaji Connors MD - 03/03/2022 7:36 PM EDT Department of Anesthesiology Post-procedure Note Patient: Eric Packer Procedure Summary Date: 03/03/22 Room / Location: [address] MAIN OR Anesthesia Start: 1831 Anesthesia Stop: 1919 Procedures: MODIFIER WOUND VAC (N/A ) DRESSING CHANGE (VAC ASSISTED) UP TO 50SQ.CM (WRVU 0.55) (Left Abdomen) Diagnosis: (left upper and left lower extremity wounds) Surgeons: Chidi Sanabria MD Responsible Provider: Balaji Connors MD Anesthesia Type: general ASA Status: 3 All Anesthesia Providers: Anesthesiologist: Balaji Connors MD CYTOLOGY TEACHER: Karthikeyan Mckeon CRNA Vitals Value Taken Time BP 156/101 03/03/221929 Temp 36.3 ??C (97.3 ??F) 03/03/221914 Pulse 103 03/03/221935 Resp 11 03/03/221935 SpO2 98 % 03/03/221935 Pain Level Vitals shown include unvalidated device data. Patient Location: PACU/[facility] Level of Consciousness: Conscious but Sleepy Pain Management: Satisfactory Analgesia PONV: None Cardiovascular Status: Hemodynamically Stable Respiratory Status: Stable Respiratory Status Postoperative Fluid Status: Intravascular EUvolemia Possible Anesthetic Complications: NONE apparent at time of evaluation Final Primary Anesthesia Type: General (The anesthetic type performed was the same as planned.) Comments: Anesthesia Preprocedure Evaluation - Balaji Connors MD - 03/03/2022 5:12 PM EDT Pre-Anesthesia Evaluation for: Eric Packer [...] Arteriogram Lower Extremity 02/06/2022 Dagoberto Vivas MD [facility] INTERVENTIONL RAD ??? PRO DEBRIDEMENT BONE EA ADDL 20 SQCM 02/08/2022 EACH ADDITIONAL 20 SQ CM, OR PART THEREOF (WRVU 1.8) performed by Shar Chatterjee MD at [facility] PAIGE ? ? PRO DEBRIDEMENT BONE MUSCLE &/FASCIA 20 SQ CM/< Left 01/29/2022 DEBRIDEMENT SKIN, SUBCU, MUSCLE, BONE, LOWER EXTREMITY (WRVU 4.1) performed by Tom Valdovinos MD [facility] MAIN OR ? ? PRO DEBRIDEMENT BONE MUSCLE &/FASCIA 20 SQ CM/< Left 01/31/2022 DEBRIDEMENT SKIN, SUBCU, MUSCLE, BONE, LOWER EXTREMITY (WRVU 4.1) performed by Jose Branch MD at [facility] MAIN OR ? ? PRO DEBRIDEMENT BONE MUSCLE &/FASCIA 20 SQ CM/< Left 01/31/2022 DEBRIDEMENT SKIN, SUBCU, MUSCLE, BONE UPPER EXTREMITY (WRVU 4.1) performed by Jose Branch MDat [facility] MAIN OR ? ? PRO DEBRIDEMENT BONE MUSCLE &/FASCIA 20 SQ CM/< Left 02/02/2022 DEBRIDEMENT SKIN, SUBCU, MUSCLE, BONE UPPER EXTREMITY (WRVU 4.1) performed by Hina Avitia MD at [facility] OR ? ? PRO DEBRIDEMENT BONE MUSCLE &/FASCIA 20 SQ CM/< Left 02/02/2022 DEBRIDEMENT SKIN, SUBCU, MUSCLE, BONE, LOWER EXTREMITY (WRVU 4.1) performed by Hina Avitia MD at [facility] OR ? ? PRO DEBRIDEMENT MUSCLE AND FASCIA 20 SQ CM/< Left 01/26/2022 DEBRIDEMENT SKIN, SUBCU, MUSCLE, LOWER EXTREMITY (WRVU 2.7) performed by Sigifredo Garcia MD at [facility] OR ? ? PRO DEBRIDEMENT MUSCLE AND FASCIA 20 SQ CM/< Left 01/26/2022 DEBRIDEMENT SKIN, SUBCU, MUSCLE, UPPER EXTREMITY (WRVU 2.7) performed by Sigifredo Garcia MD at [facility] OR ? ? PRO DEBRIDEMENT MUSCLE AND FASCIA 20 SQ CM/< Left 02/05/2022 DEBRIDEMENT SKIN, SUBCU, MUSCLE, LOWER EXTREMITY (WRVU 2.7) performed by Tom Valdovinos MD at [facility] OR ? ? PRO DEBRIDEMENT MUSCLE AND FASCIA 20 SQ CM/< Left 02/04/2022 DEBRIDEMENT SKIN, SUBCU, MUSCLE, LOWER EXTREMITY (WRVU 2.7) performed by Sigifredo Garcia MD at [facility] OR ? ? PRO DEBRIDEMENT MUSCLE AND FASCIA 20 SQ CM/< Left 02/15/2022 DEBRIDEMENT SKIN, SUBCU, MUSCLE, UPPER EXTREMITY (WRVU 2.7) performed by Jayme Armstrong MD at [facility] OR ? ? PRO DEBRIDEMENT MUSCLE AND FASCIA 20 SQ CM/< Left 02/19/2022 DEBRIDEMENT SKIN, SUBCU, MUSCLE, LOWER EXTREMITY (WRVU 2.7) performed by Jayme Armstrong MD at [facility] OR ? ? PRO DEBRIDEMENT MUSCLE AND FASCIA 20 SQ CM/< Left 02/22/2022 DEBRIDEMENT SKIN, SUBCU, MUSCLE, LOWER EXTREMITY (WRVU 2.7) performed by Dillon Betancourt MD at [facility] OR ? ? PRO DEBRIDEMENT MUSCLE AND FASCIA 20 SQ CM/< Left 02/24/2022 DEBRIDEMENT SKIN, SUBCU, MUSCLE, LOWER EXTREMITY (WRVU 2.7) performed by Dillon Betancourt MD at [facility] OR ? ? PRO DEBRIDEMENT MUSCLE AND FASCIA 20 SQ CM/< Left 02/26/2022 DEBRIDEMENT SKIN, SUBCU, MUSCLE, UPPER EXTREMITY (WRVU 2.7) performed by Dillon Betancourt MD at [facility] OR ? ? PRO DEBRIDEMENT SUBCUTANEOUS TISSUE 20 SQCM/< Left 02/04/2022 DEBRIDEMENT SKIN AND SUBCU, UPPER EXTREMITY (WRVU 1.01) [facility] ? ? PRO DEBRIDEMENT SUBCUTANEOUS TISSUE 20 SQCM/< Left 02/08/2022 DEBRIDEMENT SKIN AND SUBCU, LOWER EXTREMITY (WRVU 1.01) performed by Shar Chatterjee MD at [facility] OR ? ? PRO DEBRIDEMENT SUBCUTANEOUS TISSUE 20 SQCM/< Left 02/09/2022 DEBRIDEMENT SKIN AND SUBCU, LOWER EXTREMITY (WRVU 1.01) performed by Shar Chatterjee MD at [facility] OR ? ? PRO DEBRIDEMENT SUBCUTANEOUS TISSUE 20 SQCM/< Left 02/11/2022 DEBRIDEMENT SKIN AND SUBCU, LOWER EXTREMITY (WRVU 1.01) performed by Dillon Betancourt MD at [facility] OR ? ? PRO DEBRIDEMENT SUBCUTANEOUS TISSUE 20 SQCM/< Left 02/13/2022 DEBRIDEMENT SKIN AND SUBCU, LOWER EXTREMITY (WRVU 1.01) performed by Shar Chatterjee MD at [facility] OR ? ? PRO DEBRIDEMENT SUBCUTANEOUS TISSUE 20 SQCM/< Left 02/15/2022 DEBRIDEMENT SKIN AND SUBCU, LOWER EXTREMITY (WRVU 1.01) performed by Jayme Armstrong MD at [facility] OR ? ? PRO DEBRIDEMENT SUBCUTANEOUS TISSUE 20 SQCM/< Left 02/17/2022 DEBRIDEMENT SKIN AND SUBCU, LOWER EXTREMITY (WRVU 1.01) performed by Jayme Armstrong MD at [facility] OR ??? PRO DECOMP FOREARM, 2 COMPART, W/O DEBRIDE Left 01/23/2022 FASCIOTOMY; FOREARM AND\OR WRIST, FLEXOR & EXTENS. COMP (WRVU 10.79) performed by Sigifredo Garcia MD at [facility] MAIN OR ??? PRO DECOMPRESS ANT/LAT+POST LEG CMPART Left 01/23/2022 FASCIOTOMY, LOWER LEG, ALL COMPARTMENTS (WRVU 7.82) performed by Sigifredo Garcia MD at [facility] MAIN OR ??? PRO DRESSING CHANGE UNDER ANESTHESIA Left 02/11/2022 DRESSING CHANGE (FOR OTHER THAN GALLOWAY) UNDER ANES., UPPER EXTREMITY (WRVU 0.86) performed by Dillon Betancourt MD at [facility] MAIN OR ??? PRO DRESSING CHANGE UNDER ANESTHESIA Left 02/13/2022 DRESSING CHANGE (FOR OTHER THAN GALLOWAY) UNDER ANES., UPPER EXTREMITY (WRVU 0.86) performed by Shar Chatterjee MD at [facility] MAIN OR ??? PRO DRESSING CHANGE UNDER ANESTHESIA Left 02/17/2022 DRESSING CHANGE (FOR OTHER THAN GALLOWAY) UNDER ANES., UPPER EXTREMITY (WRVU 0.86) performed by Jayme Armstrong MD at [facility] MAIN OR ??? PRO DRESSING CHANGE UNDER ANESTHESIA Left 02/19/2022 DRESSING CHANGE (FOR OTHER THAN GALLOWAY) UNDER ANES., UPPER EXTREMITY (WRVU 0.86) performed by Jayme Armstrong MD at [facility] MAIN OR ??? PRO DRESSING CHANGE UNDER ANESTHESIA Left 02/22/2022 DRESSING CHANGE (FOR OTHER THAN GALLOWAY) UNDER ANES., UPPER EXTREMITY (WRVU 0.86) performed by Dillon Betancourt MD at [facility] OR ??? PRO DRESSING CHANGE UNDER ANESTHESIA Left 02/24/2022 DRESSING CHANGE (FOR OTHER THAN GALLOWAY) UNDER ANES., UPPER EXTREMITY (WRVU 0.86) performed by Dillon Betancourt MD at [facility] MAIN OR ??? PRO DRESSING CHANGE UNDER ANESTHESIA Left 02/26/2022 DRESSING CHANGE (FOR OTHER THAN GALLOWAY) UNDER ANES., LOWER EXTREMITY (WRVU 0.86) performed by Dillon Betancourt MD at [facility] OR ??? PRO DRESSING CHANGE UNDER ANESTHESIA Left 02/26/2022 DRESSING CHANGE (FOR OTHER THAN GALLOWAY) UNDER ANES., UPPER EXTREMITY (WRVU 0.86) performed by Dillon Betancourt MD at [facility] MAIN OR ??? PRO DRESSING CHANGE UNDER ANESTHESIA Left 03/01/2022 DRESSING CHANGE (FOR OTHER THAN GALLOWAY) UNDER ANES., LOWER EXTREMITY (WRVU 0.86) performed by Chidi Sanabria MD at [facility] OR ??? PRO DRESSING CHANGE UNDER ANESTHESIA N/A 03/01/2022 DRESSING CHANGE (FOR OTHER THAN GALLOWAY) UNDER ANES., UPPER EXTREMITY (WRVU 0.86) performed by Chidi Sanabria MD at [facility] OR ? ? PRO I&D DEEP ABSCESS BURSA/HEMATOMA THIGH/KNEE REGION Left 02/06/2022 INCISION & DRAINAGE ABSCESS OR HEMATOMA, THIGH, KNEE SUPERFICIAL (WRVU 6.78) performed by Jayme Armstrong MD at [facility] OR ??? PRO INCIS OF HIP/THIGH FASCIA Left 01/23/2022 @FASCIOTOMY,THIGH OR HIP FOR COMPARTMENT SYNDROME (WRVU 12.89) performed by Sigifredo Garcia MD at [facility] OR ??? PRO NEGATIVE PRESSURE WOUND THERAPY, LESS THAN OR EQUAL TO 50 SQCM Left 02/05/2022 DRESSING CHANGE (VAC ASSISTED) UP TO 50SQ.CM (WRVU 0.55) performed by Orville Hennessy MD at [facility] OR ??? PRO NEGATIVE PRESSURE WOUND THERAPY, LESS THAN OR EQUAL TO 50 SQCM Left 02/05/2022 DRESSING CHANGE (VAC ASSISTED) UP TO 50SQ.CM (WRVU 0.55) performed by Tom Valdovinos MD at [facility] OR ??? PRO NEGATIVE PRESSURE WOUND THERAPY, LESS THAN OR EQUAL TO 50 SQCM Left 02/08/2022 DRESSING CHANGE (VAC ASSISTED) UP TO 50SQ.CM (WRVU 0.55) performed by Shar Chatterjee MD at [facility] OR ??? PRO OPEN TREAT MANDIBLE CONDYLE FX, COMPL 04/27/2013 OPEN TREATMENT, COMPLEX MANDIBLE FX., MULTI APPROACH, W/ FIXATION performed by Kishore Neil MD at [facility] OR ??? PRO REVISE MEDIAN N/CARPAL TUNNEL SURG Left 01/23/2022 MEDIAN NERVE DECOMPRESSION (CARPAL TUNNEL RELEASE) (WRVU 4.97) performed by Sigifredo Garcia MD at [facility] OR ??? PRO SEC CLSR SURG WOUND/DEHSN EXTENSIVE/COMPLICATED Left 01/26/2022 SECONDARY CLOSURE SURGICAL WOUND OR DEHISCENCE, EXTENSIVE OR COMPLICATED, UPPER EXTREMITY (WRVU 12.04) performed by Sigifredo Garcia MD at [facility] MAIN OR Social History Tobacco Use [...] risks discussed with patient. Plan discussed with CYTOLOGY TEACHER and attending. Anesthesia Screening documented in this encounter Plan of Treatment Upcoming Encounters Date Type Specialty Care Team Description 06/09/2022 Procedure visit Neurology Summer Wiggins MD [facility] ER NEUROLOGY DEPT [place], [place] [address] (Wo rk) Scheduled Procedures Name [...] MAR Action Action Date Dose Rate Site ondansetron (pf) (Zofran) (2 mg/mL) Given 03/03/2022 6:55 PM EDT 4 mg injection Intravenous, PRN, Starting on Tue03/03/22 at 1855, Until Tue03/03/22 at 1920, Anesthesia Intra-op, Routine propofoL (Diprivan) (10 mg/mL) New Bag 03/03/2022 6:38 PM 50 m cg/kg/min 23.19 mL/hr infusion EDT Intravenous, CONTINUOUS PRN, Starting on Tue03/03/22 at 1838, Until Tue03/03/22 at 1920, Anesthesia Intra-op, Routine propofoL (Diprivan) 10 mg/mL bolus injection Given 09/2021 6:36 PM EDT 250 mg (Anesthesia) Intravenous, PRN, Starting on Tue03/03/22 at 1836, Until Tue03/03/22 at 1920, Anesthesia Intra-op sodium chloride 0.9% infusion New Bag 03/03/2022 6:32 PM EDT Intravenous, CONTINUOUS PRN, Starting on Tue03/03/22 at 1832, Until Tue03/03/22 at 1920, Anesthesia Intra-op documented in this encounter Additional [...] prior to 04/25/2022 Please call Infection Prevention [phone] with questions. documented as of this encounter Care Teams Assembler Arranger Relationship Specialty Start Date End Date None PCP - General 03/10/19 None documented as of this encounter
--- OUTSIDE RECORDS SUMMARY | 2022-04-21 11:07 | XMS_ITS | Encounter Summary ---
:1990 [place] [address] Care Team Providers Name Role Phone None Primary Care Provider Unavailable Reason for Visit Auth/Cert Specialty Diagnoses / Procedures Referred By Contact Refer red To Contact Diagnoses Cardiac arrest intubated med misuse/covid Ximena Robles MD [facility] Procedures ER IPI Admit [facility] Pulmonary Medicine [place] [phone] Referral ID Status Reason Start Date Expiration Date Visits Requ ested Visits Authorized [id number] 1 1 Encounter Details Date Type Department Care Team Description 02/26/2022 Anesthesia Event Main Operating Room Matilda Ayde Rose DO [facility] [place] [address] [facility] Tamika Pena [facility] [place] [address] [facility] [place] [phone] Anesthesia Record Procedure Summary Procedure Name Responsible Anesthesia Start Anesthesia Stop Time Anesthesiologist Time DRESSING CHANGE Ayde Rose DO 02/26/22 0840 02/26/22 0954 (FOR OTHER THAN GALLOWAY) UNDER ANES., LOWER EXTREMITY (WRVU 0.86) (Left ) Events Date Time Event Comment 02/26/2022 0817 0840 AN Verify 0840 Start 0840 An Start Data 0843 An Induction 0846 An Intubation 0849 Anesthesia Ready 0901 Procedure Start 0939 Extubation/LMA Out 09 an stop data 0954 Recovery or ICU Handoff Patient care was transferred to the destination unit staff after review of the patient's medica l history, current anesthetic/surgi moe status and plan, according to the Provider Handoff Checklist. 0954 Stop Name Total fentaNYL 100 mcg Propofol 200 mg Ondansetron 4 mg Dexmedetomidine 24 mcg HYDROmorphone 2 mg/mL 0.4 mg Ketamine 10 mg/mL 50 mg ceFAZolin 2 g Sodium Chloride 0.9% 100 mL Agents Name [...] arm; Emma Otero RN Lim anek, Lisa R RN vertical; 03/06/22; 1543 Incision 01/26/22; 1625; [...] , 03/04/22 1400 by jugular vein, right; ÁNGEL Kam, Jere Shaw senior sharepoint architect/apheresis catheter (re-wired from previous H.D. catheter, Trialysis catheter); Ultrasound Guidance; other (see comments) (13 congolese and 15 cm); Rogers Solano BICYCLE II ASSEMBLER; 03/04/22; 1400 (removed today by MD) NPWT 02/11/22; 1022; Left, 02/11/22 1022 by Binder, 0 03/13/22 0854 by anterior, lower; arm; ÁNGEL Morris, Ruben Machado RN 03/13/22; 0854 NPWT 02/11/22; 1023; Left, 02/11/22 1023 by Binder, 0 03/13/22 0922 by anterior; thigh; 03/13/22; ÁNGEL Morris , Marcio Machado RN 0922 Supraglottic Mask Ventilation: Not 02/26/22 0851 by Becky, 0 02/26/[address] [place] (0); LMA Type: Tamika Gaines CRNA Aquilla, Andrew Gaines CRNA iGel; LMA Size: 5; Inserted by: stAmi frankr documented in this encounter Social History Tobacco [...] Postprocedure Evaluation - Ayde Rose DO - 02/26/2022 12:02 PM EDT Department of Anesthesiology Post-procedure Note Patient: Eric Packer Procedure Summary Date: 02/26/22 Room / Location: [facility] OR [address] [place] [address] MAIN OR Anesthesia Start: 839 Anesthesia Stop: 953 Procedures: DRESSING CHANGE (FOR OTHER THAN GALLOWAY) UNDER ANES., LOWER EXTREMITY (WRVU 0.86) (Left ) DRESSING CHANGE (FOR OTHER THAN GALLOWAY) UNDER ANES., UPPER EXTREMITY (WRVU 0.86) (Left Abdomen) DEBRIDEMENT SKIN, SUBCU, MUSCLE, UPPER EXTREMITY (WRVU 2.7) (Left ) Diagnosis: (left upper and lower extremity fasciotomies) Surgeons: Dillon Betancourt MD Responsible Provider: Ayde Rose DO Anesthesia Type: general ASA Status: 3 All Anesthesia Providers: Anesthesiologist: Ayde Rose DO PACKAGING MACHINE SUPPLIES DISTRIBUTOR: Tamika Pena CRNA Vitals Value Taken Time BP 140/102 02/26/22 1024 Temp 37.1 ??C (98.8 ??F) 02/26/22 1024 Pulse 97 02/26/22 1027 Resp 11 02/26/22 1027 SpO2 96 % 02/26/22 1048 Pain Level 0 02/26/22 1024 Vitals shown include unvalidated device data. Patient Location: PACU/[facility] Level of Consciousness: Awake and Alert Pain Management: PONV: None Cardiovascular Status: Hemodynamically Stable Respiratory Status: Stable Respiratory Status Postoperative Fluid Status: Intravascular EUvolemia Possible Anesthetic Complications: NONE apparent at time of evaluation Final Primary Anesthesia Type: General (The anesthetic type performed was the same as planned.) Comments: Anesthesia Preprocedure Evaluation - Ayde Rose DO - 02/26/2022 6:50 AM EDT Pre-Anesthesia Evaluation for: Eric Packer [...] 01/24/2022 ??? Aspiration pneumonia 01/24/2022 ? ? *LUE, LLE compartment syndrome s/p fasciotimies, I&D 01/23/22, [...] Arteriogram Lower Extremity 02/06/2022 Dagoberto Vivas MD [facility] INTERVENTIONL RAD ??? PRO DEBRIDEMENT BONE EA ADDL 20 SQCM 02/08/2022 EACH ADDITIONAL 20 SQ CM, OR PART THEREOF (WRVU 1.8) performed by Shar Chatterjee MD at [facility] PAIGE ? ? PRO DEBRIDEMENT BONE MUSCLE &/FASCIA 20 SQ CM/< Left 01/29/2022 DEBRIDEMENT SKIN, SUBCU, MUSCLE, BONE, LOWER EXTREMITY (WRVU 4.1) performed by Tom Valdovinos MD [facility] MAIN OR ? ? PRO DEBRIDEMENT BONE MUSCLE &/FASCIA 20 SQ CM/< Left 01/31/2022 DEBRIDEMENT SKIN, SUBCU, MUSCLE, BONE, LOWER EXTREMITY (WRVU 4.1) performed by Jose Branch MD at [facility] MAIN OR ? ? PRO DEBRIDEMENT BONE MUSCLE &/FASCIA 20 SQ CM/< Left 01/31/2022 DEBRIDEMENT SKIN, SUBCU, MUSCLE, BONE UPPER EXTREMITY (WRVU 4.1) performed by Jose Branch MDat [facility] MAIN OR ? ? PRO DEBRIDEMENT BONE MUSCLE &/FASCIA 20 SQ CM/< Left 02/02/2022 DEBRIDEMENT SKIN, SUBCU, MUSCLE, BONE UPPER EXTREMITY (WRVU 4.1) performed by Hina Avitia MD at [facility] OR ? ? PRO DEBRIDEMENT BONE MUSCLE &/FASCIA 20 SQ CM/< Left 02/02/2022 DEBRIDEMENT SKIN, SUBCU, MUSCLE, BONE, LOWER EXTREMITY (WRVU 4.1) performed by Hina Avitia MD at [facility] OR ? ? PRO DEBRIDEMENT MUSCLE AND FASCIA 20 SQ CM/< Left 01/26/2022 DEBRIDEMENT SKIN, SUBCU, MUSCLE, LOWER EXTREMITY (WRVU 2.7) performed by Sigifredo Garcia MD at [facility] OR ? ? PRO DEBRIDEMENT MUSCLE AND FASCIA 20 SQ CM/< Left 01/26/2022 DEBRIDEMENT SKIN, SUBCU, MUSCLE, UPPER EXTREMITY (WRVU 2.7) performed by Sigifredo Garcia MD at [facility] OR ? ? PRO DEBRIDEMENT MUSCLE AND FASCIA 20 SQ CM/< Left 02/05/2022 DEBRIDEMENT SKIN, SUBCU, MUSCLE, LOWER EXTREMITY (WRVU 2.7) performed by Tom Valdovinos MD at [facility] OR ? ? PRO DEBRIDEMENT MUSCLE AND FASCIA 20 SQ CM/< Left 02/04/2022 DEBRIDEMENT SKIN, SUBCU, MUSCLE, LOWER EXTREMITY (WRVU 2.7) performed by Sigifredo Garcia MD at [facility] OR ? ? PRO DEBRIDEMENT MUSCLE AND FASCIA 20 SQ CM/< Left 02/15/2022 DEBRIDEMENT SKIN, SUBCU, MUSCLE, UPPER EXTREMITY (WRVU 2.7) performed by Jayme Armstrong MD at [facility] OR ? ? PRO DEBRIDEMENT MUSCLE AND FASCIA 20 SQ CM/< Left 02/19/2022 DEBRIDEMENT SKIN, SUBCU, MUSCLE, LOWER EXTREMITY (WRVU 2.7) performed by Jayme Armstrong MD at [facility] OR ? ? PRO DEBRIDEMENT MUSCLE AND FASCIA 20 SQ CM/< Left 02/22/2022 DEBRIDEMENT SKIN, SUBCU, MUSCLE, LOWER EXTREMITY (WRVU 2.7) performed by Dillon Betancourt MD at [facility] OR ? ? PRO DEBRIDEMENT MUSCLE AND FASCIA 20 SQ CM/< Left 02/24/2022 DEBRIDEMENT SKIN, SUBCU, MUSCLE, LOWER EXTREMITY (WRVU 2.7) performed by Dillon Betancourt MD at [facility] OR ? ? PRO DEBRIDEMENT SUBCUTANEOUS TISSUE 20 SQCM/< Left 02/04/2022 DEBRIDEMENT SKIN AND SUBCU, UPPER EXTREMITY (WRVU 1.01) performed [facility] ? ? PRO DEBRIDEMENT SUBCUTANEOUS TISSUE 20 SQCM/< Left 02/08/2022 DEBRIDEMENT SKIN AND SUBCU, LOWER EXTREMITY (WRVU 1.01) performed by Shar Chatterjee MD at [facility] OR ? ? PRO DEBRIDEMENT SUBCUTANEOUS TISSUE 20 SQCM/< Left 02/09/2022 DEBRIDEMENT SKIN AND SUBCU, LOWER EXTREMITY (WRVU 1.01) performed by Shar Chatterjee MD at [facility] OR ? ? PRO DEBRIDEMENT SUBCUTANEOUS TISSUE 20 SQCM/< Left 02/11/2022 DEBRIDEMENT SKIN AND SUBCU, LOWER EXTREMITY (WRVU 1.01) performed by Dillon Betancourt MD at [facility] OR ? ? PRO DEBRIDEMENT SUBCUTANEOUS TISSUE 20 SQCM/< Left 02/13/2022 DEBRIDEMENT SKIN AND SUBCU, LOWER EXTREMITY (WRVU 1.01) performed by Shar Chatterjee MD at [facility] OR ? ? PRO DEBRIDEMENT SUBCUTANEOUS TISSUE 20 SQCM/< Left 02/15/2022 DEBRIDEMENT SKIN AND SUBCU, LOWER EXTREMITY (WRVU 1.01) performed by Jayme Armstrong MD at [facility] OR ? ? PRO DEBRIDEMENT SUBCUTANEOUS TISSUE 20 SQCM/< Left 02/17/2022 DEBRIDEMENT SKIN AND SUBCU, LOWER EXTREMITY (WRVU 1.01) performed by Jayme Armstrong MD at [facility] OR ??? PRO DECOMP FOREARM, 2 COMPART, W/O DEBRIDE Left 01/23/2022 FASCIOTOMY; FOREARM AND\OR WRIST, FLEXOR & EXTENS. COMP (WRVU 10.79) performed by Sigifredo Garcia MD at [facility] OR ??? PRO DECOMPRESS ANT/LAT+POST LEG CMPART Left 01/23/2022 FASCIOTOMY, LOWER LEG, ALL COMPARTMENTS (WRVU 7.82) performed by Sigifredo Garcia MD at [facility] OR ??? PRO DRESSING CHANGE UNDER ANESTHESIA Left 02/11/2022 DRESSING CHANGE (FOR OTHER THAN GALLOWAY) UNDER ANES., UPPER EXTREMITY (WRVU 0.86) performed by Dillon Betancourt MD at [facility] OR ??? PRO DRESSING CHANGE UNDER ANESTHESIA Left 02/13/2022 DRESSING CHANGE (FOR OTHER THAN GALLOWAY) UNDER ANES., UPPER EXTREMITY (WRVU 0.86) performed by Shar Chatterjee MD at [facility] OR ??? PRO DRESSING CHANGE UNDER ANESTHESIA Left 02/17/2022 DRESSING CHANGE (FOR OTHER THAN GALLOWAY) UNDER ANES., UPPER EXTREMITY (WRVU 0.86) performed by Jayme Armstrong MD at [facility] OR ??? PRO DRESSING CHANGE UNDER ANESTHESIA Left 02/19/2022 DRESSING CHANGE (FOR OTHER THAN GALLOWAY) UNDER ANES., UPPER EXTREMITY (WRVU 0.86) performed by Jayme Armstrong MD at [facility] OR ??? PRO DRESSING CHANGE UNDER ANESTHESIA Left 02/22/2022 DRESSING CHANGE (FOR OTHER THAN GALLOWAY) UNDER ANES., UPPER EXTREMITY (WRVU 0.86) performed by Dillon Betancourt MD at [facility] OR ??? PRO DRESSING CHANGE UNDER ANESTHESIA Left 02/24/2022 DRESSING CHANGE (FOR OTHER THAN GALLOWAY) UNDER ANES., UPPER EXTREMITY (WRVU 0.86) performed by Dillon Betancourt MD at [facility] OR ? ? PRO I&D DEEP ABSCESS BURSA/HEMATOMA THIGH/KNEE REGION Left 02/06/2022 INCISION & DRAINAGE ABSCESS OR HEMATOMA, THIGH, KNEE SUPERFICIAL (WRVU 6.78) performed by Jayme Armstrong MD at [facility] OR ??? PRO INCIS OF HIP/THIGH FASCIA Left 01/23/2022 @FASCIOTOMY,THIGH OR HIP FOR COMPARTMENT SYNDROME (WRVU 12.89) performed by Sigifredo Garcia MD at [facility] OR ??? PRO NEGATIVE PRESSURE WOUND THERAPY, LESS THAN OR EQUAL TO 50 SQCM Left 02/05/2022 DRESSING CHANGE (VAC ASSISTED) UP TO 50SQ.CM (WRVU 0.55) performed by Orville Hennessy MD at [facility] OR ??? PRO NEGATIVE PRESSURE WOUND THERAPY, LESS THAN OR EQUAL TO 50 SQCM Left 02/05/2022 DRESSING CHANGE (VAC ASSISTED) UP TO 50SQ.CM (WRVU 0.55) performed by Tom Valdovinos MD at [facility] MAIN OR ??? PRO NEGATIVE PRESSURE WOUND THERAPY, LESS THAN OR EQUAL TO 50 SQCM Left 02/08/2022 DRESSING CHANGE (VAC ASSISTED) UP TO 50SQ.CM (WRVU 0.55) performed by Shar Chatterjee MD at [facility] MAIN OR ??? PRO OPEN TREAT MANDIBLE CONDYLE FX, COMPL 04/27/2013 OPEN TREATMENT, COMPLEX MANDIBLE FX., MULTI APPROACH, W/ FIXATION performed by Kishore Neil MD at [facility] MAIN OR ??? PRO REVISE MEDIAN N/CARPAL TUNNEL SURG Left 01/23/2022 MEDIAN NERVE DECOMPRESSION (CARPAL TUNNEL RELEASE) (WRVU 4.97) performed by Sigifredo Garcia MD at [facility] MAIN OR ??? PRO SEC CLSR SURG WOUND/DEHSN EXTENSIVE/COMPLICATED Left 01/26/2022 SECONDARY CLOSURE SURGICAL WOUND OR DEHISCENCE, EXTENSIVE OR COMPLICATED, UPPER EXTREMITY (WRVU 12.04) performed by Sigifredo Garcia MD at [facility] MAIN OR Social History Tobacco Use ??? [...] for repeat I&D and wound vac changes. ?? Patient on M/W/F dialysis ?? TTE [...] current tobacco smoking, EtOH, cocaine, opioids HTN 02/25/22 0530 WBC 9.5 RBC 2.63* HGB 7.5* HCT 23.5* MCV 89.4 MCH 28.5 MCHC 31.9* PLATELET 299 RDWCV 17.1* 02/26/22 0530 NA 142 K 4.4 CL 105 CO2 23 BUN 60* CREATININE 2.39* GLUCOSE 101 NPO NO changes since his last procedure on 09/27/2021 Patient would prefer general since he stated he is anxious and had significant pain after the procedure last time. Region - Other Informed Consent: Anesthetic plan and risks discussed with patient. Plan discussed with PACKAGING MACHINE SUPPLIES DISTRIBUTOR and attending. Anesthesia Screening documented in this encounter Plan of Treatment Upcoming Encounters Date Type Specialty Care Team Description 06/09/2022 Procedure visit Neurology Summer Wiggins MD [facility] NEUROLOGY DEPT [place], [place] [address] (Wo rk) Scheduled Procedures Name Priority [...] Site ceFAZolin (Ancef) 1 g in dextrose 5% Given 02/26/2022 9:01 AM ED T 2 g 50 mL infusion Intravenous, PRN, Starting on Tue02/26/22 at 0901, Until Tue02/26/22 at 0954, Administer over 30 Minutes, Anesthesia Intra-op dexmedeTOMIDine (Precedex) (4 mcg/mL) bolus Given 02/26/2022 9:1 8 AM EDT 8 mcg injection (Anesthsia) Intravenous, PRN, Starting on Tue02/26/22 at 0843, Until Tue02/26/22 at 0954, Anesthesia Intra-op, Routine Given 02/26/2022 8:48 AM EDT 8 mcg Given 02/26/2022 8:43 AM EDT 8 mcg fentaNYL (pf) (50 mcg/mL) multi-dose Given 02/26/2022 8:59 AM ED T 50 mcg injection Intravenous, PRN, Starting on Tue02/26/22 at 0843, Until Tue02/26/22 at 0954, Anesthesia Intra-op, Routine Given 02/26/2022 8:43 AM EDT 50 mcg HYDROmorphone (Dilaudid) (2 mg/mL) multi-dose Given 9:25 AM EDT 0.4 mg injection solution Intravenous, PRN, Starting on Tue02/26/22 at 0925, Until Tue02/26/22 at 0954, Anesthesia Intra-op, Routine ketamine (Ketalar) (10 mg/mL) IV bolus Given 02/26/2022 9:33 AM EDT 10 mg injection (Anesthesia) Intravenous, PRN, Starting on Tue02/26/22 at 0843, Until Tue02/26/22 at 0954, Anesthesia Intra-op Given 02/26/2022 9:18 AM EDT 10 mg Given 02/26/2022 8:52 AM EDT 10 mg ondansetron (pf) (Zofran) (2 mg/mL) inje ction Given 02/26/2022 9:26 AM EDT 4 mg Intravenous, PRN, Starting on Tue02/26/22 at 0926, Until Tue02/26/22 at 0954, Anesthesia Intra-op, Routine propofoL (Diprivan) 10 mg/mL bolus injection Given 8:43 AM EDT 200 mg (Anesthesia) Intravenous, PRN, Starting on Tue02/26/22 at 0843, Until Tue02/26/22 at 0954, Anesthesia Intra-op sodium chloride 0.9% infusion New Bag 02/26/2022 8:40 AM EDT Intravenous, CONTINUOUS PRN, Starting on Tue02/26/22 at 0840, Until Tue02/26/22 at 0954, Anesthesia Intra-op documented in this encounter Additional [...] prior to 04/25/2022 Please call Infection Prevention [phone] with questions. documented as of this encounter Care Teams Steward/Stewardess Banquet Relationship Specialty Start Date End Date None PCP - General 03/10/19 None documented as of this encounter
--- OUTSIDE RECORDS SUMMARY | 2022-04-21 11:07 | XMS_ITS | Encounter Summary ---
:1990 Author Organization [place] [address] Care Team Providers Name Role Phone None Primary Care Provider Unavailable Reason for Visit Auth/Cert Specialty Diagnoses / Procedures Referred By Contact Refer red To Contact Diagnoses Cardiac arrest intubated med misuse/covid Ximena Robles MD [facility] Procedures ER IPI Admit [facility] [place] [address] Referral ID Status Reason Start Date Expiration Date Visits Requ ested Visits Authorized [id number] 1 1 Encounter Details Date Type Department Care Team Description 02/24/2022 Anesthesia Event Main Operating Room Stanford Valencia MD [facility] [place] [address] [facility] Nahed Rice MD [facility] [place] [address] [facility] [place] [address] Anesthesia Record Procedure Summary Procedure Name Responsible Anesthesia Start Anesthesia Stop Time Anesthesiologist Time DRESSING CHANGE Stanford Caruso MD 02/24/22 1042 02/24/22 1216 (FOR OTHER THAN GALLOWAY) UNDER ANES., UPPER EXTREMITY (WRVU 0.86) (Left Abdomen) Events Date Time Event Comment 02/24/2022 1000 1042 AN Verify 1042 Start 1042 An Start Data 1057 An Induction 1102 An Intubation 1107 Anesthesia Ready 1209 Extubation/LMA Out 1209 an stop data 1216 Recovery or ICU Handoff Patient care was transferred to the destination unit staff after review of the patient's medica l history, current anesthetic/surgi moe status and plan, according to the Provider Handoff Checklist. 1216 Stop Name Total Midazolam 2 mg fentaNYL 75 mcg Propofol 200 mg Ondansetron 4 mg Dexamethasone 8 mg Dexmedetomidine 20 mcg Ketamine 10 mg/mL 50 mg Lactated Ringers 450 mL Agents Name O2 Air N2O Sevoflurane [...] 1544 by lower; arm; 03/06/22; Wendy Caraballo RN [place] nek, Lisa R RN 1544 CVC 3 Lumen 02/07/22; 1300; internal 02/07/22 1300 by [place]ham , 03/04/22 1400 by jugular vein, right; Natalya L, Jere Mares RN dialysis/apheresis catheter (re-wired from previous H.D. catheter, Trialysis catheter); Ultrasound Guidance; other (see comments) (13 botswanan and 15 cm); Rogers Solano [employer]; 03/04/22; 1400 (removed today by MD) NPWT 02/11/22; 1022; Left, 02/11/22 1022 by Binder, 0 03/13/22 0854 by Fran anterior, lower; arm; ÁNGEL Morris R N 03/13/22; 0854 NPWT 02/11/22; 1023; Left, 02/11/22 1023 by Binder, 0 03/13/22 0922 by Fran, anterior; thigh; ÁNGEL Morris RN 03/13/22; 0922 Supraglottic Mask Ventilation: Not 02/24/22 1102 by 02/24/22 1209 by Attempted (0); LMA Type: Nahed Rice MD Godbout, Jennifer M, MD Unique; LMA Size: 5; Inserted by: MD Krystal documented in this encounter Social History Tobacco [...] encounter OR Notes Anesthesia Postprocedure Evaluation - Stanford Caruso MD - 02/24/2022 12:17 PM EDT Department of Anesthesiology Post-procedure Note Patient: Eric Packer Procedure Summary Date: 02/24/22 Room / Location: [facility] OR [address] [place] [address] MAIN OR Anesthesia Start: 1042 Anesthesia Stop: 1216 Procedures: DRESSING CHANGE (FOR OTHER THAN GALLOWAY) UNDER ANES., UPPER EXTREMITY (WRVU 0.86) (Left Abdomen) DEBRIDEMENT SKIN, SUBCU, MUSCLE, LOWER EXTREMITY (WRVU 2.7) (Left Leg) Diagnosis: (soft tissue infection) Surgeons: Dillon Betancourt MD Responsible Provider: Stanford Caruso MD Anesthesia Type: general ASA Status: 3 All Anesthesia Providers: Anesthesiologist: Stanford Caruso MD Railroad Hand: Nahed Rice MD Vitals Value Taken Time BP 130/102 02/24/22 1215 Temp Pulse 89 02/24/22 1216 Resp 12 02/24/22 1216 SpO2 100 % 02/24/22 1216 Pain Level Vitals shown include unvalidated device data. Patient Location: PACU/[facility] Level of Consciousness: Conscious but Sleepy Pain Management: Satisfactory Analgesia PONV: None Cardiovascular Status: At Baseline and Hemodynamically Stable Respiratory Status: Supplemental O2 (NC or FM) Postoperative Fluid Status: Intravascular EUvolemia Possible Anesthetic Complications: NONE apparent at time of evaluation Final Primary Anesthesia Type: General (The anesthetic type performed was the same as planned.) Comments: Nahed Rice MD Anesthesia Preprocedure Evaluation - Stanford Caruso MD - 02/24/2022 7:34 AM EDT Pre-Anesthesia Evaluation for: Eric Packer a 31 y.o. male. Procedure(s): DRESSING CHANGE (FOR OTHER THAN GALLOWAY) UNDER ANES., UPPER EXTREMITY (WRVU 0.86) DEBRIDEMENT SKIN, SUBCU, MUSCLE, LOWER EXTREMITY (WRVU 2.7) Patient Active Problem List Diagnosis Date Noted [...] Arteriogram Lower Extremity 02/06/2022 Dagoberto Vivas MD [facility] INTERVENTIONL RAD ??? PRO DEBRIDEMENT BONE EA ADDL 20 SQCM 02/08/2022 EACH ADDITIONAL 20 SQ CM, OR PART THEREOF (WRVU 1.8) performed by Shar Chatterjee MD at [facility] PAIGE ? ? PRO DEBRIDEMENT BONE MUSCLE &/FASCIA 20 SQ CM/< Left 01/29/2022 DEBRIDEMENT SKIN, SUBCU, MUSCLE, BONE, LOWER EXTREMITY (WRVU 4.1) performed by Tom Valdovinos MD [facility] OR ? ? PRO DEBRIDEMENT BONE MUSCLE &/FASCIA 20 SQ CM/< Left 01/31/2022 DEBRIDEMENT SKIN, SUBCU, MUSCLE, BONE, LOWER EXTREMITY (WRVU 4.1) performed by Jose Branch MD at [facility] MAIN OR ? ? PRO DEBRIDEMENT BONE MUSCLE &/FASCIA 20 SQ CM/< Left 01/31/2022 DEBRIDEMENT SKIN, SUBCU, MUSCLE, BONE UPPER EXTREMITY (WRVU 4.1) performed by Jose Branch MDat [facility] MAIN OR ? ? PRO DEBRIDEMENT BONE MUSCLE &/FASCIA 20 SQ CM/< Left 02/02/2022 DEBRIDEMENT SKIN, SUBCU, MUSCLE, BONE UPPER EXTREMITY (WRVU 4.1) performed by Hina Avitia MD at [facility] MAIN OR ? ? PRO DEBRIDEMENT BONE MUSCLE &/FASCIA 20 SQ CM/< Left 02/02/2022 DEBRIDEMENT SKIN, SUBCU, MUSCLE, BONE, LOWER EXTREMITY (WRVU 4.1) performed by Hina Avitia MD at [facility] OR ? ? PRO DEBRIDEMENT MUSCLE AND FASCIA 20 SQ CM/< Left 01/26/2022 DEBRIDEMENT SKIN, SUBCU, MUSCLE, LOWER EXTREMITY (WRVU 2.7) performed by Sigifredo Garcia MD at [facility] OR ? ? PRO DEBRIDEMENT MUSCLE AND FASCIA 20 SQ CM/< Left 01/26/2022 DEBRIDEMENT SKIN, SUBCU, MUSCLE, UPPER EXTREMITY (WRVU 2.7) performed by Sigifredo Garcia MD at [facility] OR ? ? PRO DEBRIDEMENT MUSCLE AND FASCIA 20 SQ CM/< Left 02/05/2022 DEBRIDEMENT SKIN, SUBCU, MUSCLE, LOWER EXTREMITY (WRVU 2.7) performed by Tom Valdovinos MD at [facility] OR ? ? PRO DEBRIDEMENT MUSCLE AND FASCIA 20 SQ CM/< Left 02/04/2022 DEBRIDEMENT SKIN, SUBCU, MUSCLE, LOWER EXTREMITY (WRVU 2.7) performed by Sigifredo Garcia MD at [facility] OR ? ? PRO DEBRIDEMENT MUSCLE AND FASCIA 20 SQ CM/< Left 02/15/2022 DEBRIDEMENT SKIN, SUBCU, MUSCLE, UPPER EXTREMITY (WRVU 2.7) performed by Jayme Armstrong MD at [facility] OR ? ? PRO DEBRIDEMENT MUSCLE AND FASCIA 20 SQ CM/< Left 02/19/2022 DEBRIDEMENT SKIN, SUBCU, MUSCLE, LOWER EXTREMITY (WRVU 2.7) performed by Jayme Armstrong MD at [facility] OR ? ? PRO DEBRIDEMENT MUSCLE AND FASCIA 20 SQ CM/< Left 02/22/2022 DEBRIDEMENT SKIN, SUBCU, MUSCLE, LOWER EXTREMITY (WRVU 2.7) performed by Dillon Betancourt MD at [facility] OR ? ? PRO DEBRIDEMENT SUBCUTANEOUS TISSUE 20 SQCM/< Left 02/04/2022 DEBRIDEMENT SKIN AND SUBCU, UPPER EXTREMITY (WRVU 1.01) performed [facility] ? ? PRO DEBRIDEMENT SUBCUTANEOUS TISSUE 20 SQCM/< Left 02/08/2022 DEBRIDEMENT SKIN AND SUBCU, LOWER EXTREMITY (WRVU 1.01) performed by Shar Chatterjee MD at [facility] OR ? ? PRO DEBRIDEMENT SUBCUTANEOUS TISSUE 20 SQCM/< Left 02/09/2022 DEBRIDEMENT SKIN AND SUBCU, LOWER EXTREMITY (WRVU 1.01) performed by Shar Chatterjee MD at [facility] OR ? ? PRO DEBRIDEMENT SUBCUTANEOUS TISSUE 20 SQCM/< Left 02/11/2022 DEBRIDEMENT SKIN AND SUBCU, LOWER EXTREMITY (WRVU 1.01) performed by Dillon Betancourt MD at [facility] OR ? ? PRO DEBRIDEMENT SUBCUTANEOUS TISSUE 20 SQCM/< Left 02/13/2022 DEBRIDEMENT SKIN AND SUBCU, LOWER EXTREMITY (WRVU 1.01) performed by Shar Chatterjee MD at [facility] OR ? ? PRO DEBRIDEMENT SUBCUTANEOUS TISSUE 20 SQCM/< Left 02/15/2022 DEBRIDEMENT SKIN AND SUBCU, LOWER EXTREMITY (WRVU 1.01) performed by Jayme Armstrong MD at [facility] OR ? ? PRO DEBRIDEMENT SUBCUTANEOUS TISSUE 20 SQCM/< Left 02/17/2022 DEBRIDEMENT SKIN AND SUBCU, LOWER EXTREMITY (WRVU 1.01) performed by Jayme Armstrong MD at [facility] OR ??? PRO DECOMP FOREARM, 2 COMPART, W/O DEBRIDE Left 01/23/2022 FASCIOTOMY; FOREARM AND\OR WRIST, FLEXOR & EXTENS. COMP (WRVU 10.79) performed by Sigifredo Garcia MD at [facility] OR ??? PRO DECOMPRESS ANT/LAT+POST LEG CMPART Left 01/23/2022 FASCIOTOMY, LOWER LEG, ALL COMPARTMENTS (WRVU 7.82) performed by Sigifredo Garcia MD at [facility] OR ??? PRO DRESSING CHANGE UNDER ANESTHESIA Left 02/11/2022 DRESSING CHANGE (FOR OTHER THAN GALLOWAY) UNDER ANES., UPPER EXTREMITY (WRVU 0.86) performed by Dillon Betancourt MD at [facility] OR ??? PRO DRESSING CHANGE UNDER ANESTHESIA Left 02/13/2022 DRESSING CHANGE (FOR OTHER THAN GALLOWAY) UNDER ANES., UPPER EXTREMITY (WRVU 0.86) performed by Shar Chatterjee MD at [facility] OR ??? PRO DRESSING CHANGE UNDER ANESTHESIA Left 02/17/2022 DRESSING CHANGE (FOR OTHER THAN GALLOWAY) UNDER ANES., UPPER EXTREMITY (WRVU 0.86) performed by Jayme Armstrong MD at [facility] OR ??? PRO DRESSING CHANGE UNDER ANESTHESIA Left 02/19/2022 DRESSING CHANGE (FOR OTHER THAN GALLOWAY) UNDER ANES., UPPER EXTREMITY (WRVU 0.86) performed by Jayme Armstrong MD at [facility] OR ??? PRO DRESSING CHANGE UNDER ANESTHESIA Left 02/22/2022 DRESSING CHANGE (FOR OTHER THAN GALLOWAY) UNDER ANES., UPPER EXTREMITY (WRVU 0.86) performed by Dillon Betancourt MD at [facility] MAIN OR ? ? PRO I&D DEEP ABSCESS BURSA/HEMATOMA THIGH/KNEE REGION Left 02/06/2022 INCISION & DRAINAGE ABSCESS OR HEMATOMA, THIGH, KNEE SUPERFICIAL (WRVU 6.78) performed by Jayme Armstrong MD at [facility] OR ??? PRO INCIS OF HIP/THIGH FASCIA Left 01/23/2022 @FASCIOTOMY,THIGH OR HIP FOR COMPARTMENT SYNDROME (WRVU 12.89) performed by Sigifredo Garcia MD at [facility] MAIN OR ??? PRO NEGATIVE PRESSURE WOUND THERAPY, LESS THAN OR EQUAL TO 50 SQCM Left 02/05/2022 DRESSING CHANGE (VAC ASSISTED) UP TO 50SQ.CM (WRVU 0.55) performed by Orville Hennessy MD at [facility] MAIN OR ??? PRO NEGATIVE PRESSURE WOUND THERAPY, LESS THAN OR EQUAL TO 50 SQCM Left 02/05/2022 DRESSING CHANGE (VAC ASSISTED) UP TO 50SQ.CM (WRVU 0.55) performed by Tom Valdovinos MD at [facility] MAIN OR ??? PRO NEGATIVE PRESSURE WOUND THERAPY, LESS THAN OR EQUAL TO 50 SQCM Left 02/08/2022 DRESSING CHANGE (VAC ASSISTED) UP TO 50SQ.CM (WRVU 0.55) performed by Shar Chatterjee MD at [facility] MAIN OR ??? PRO OPEN TREAT MANDIBLE CONDYLE FX, COMPL 04/27/2013 OPEN TREATMENT, COMPLEX MANDIBLE FX., MULTI APPROACH, W/ FIXATION performed by Kishore Neil MD at [facility] OR ??? PRO REVISE MEDIAN N/CARPAL TUNNEL SURG Left 01/23/2022 MEDIAN NERVE DECOMPRESSION (CARPAL TUNNEL RELEASE) (WRVU 4.97) performed by Sigifredo Garcia MD at [facility] MAIN OR ??? PRO SEC CLSR SURG WOUND/DEHSN EXTENSIVE/COMPLICATED Left 01/26/2022 SECONDARY CLOSURE SURGICAL WOUND OR DEHISCENCE, EXTENSIVE OR COMPLICATED, UPPER EXTREMITY (WRVU 12.04) performed by Sigifredo Garcia MD at [facility] MAIN OR Social History Tobacco Use [...] Physical Exam: Preprocedure Vitals Current as of 02/24/22 0734 BP: 144/106 Pulse: 108 Resp: 18 SpO2: 97 Temp: 36.9 ??C (98.4 ??F) Height: 182.9 cm (6' 0.01) (02/05/22) Weight: 104.3 kg (229 lb 15 oz) (02/09/22) BMI: 31.18 IBW: 77.6 kg (171 lb 1.9 oz) Last edited 02/24/22 0636 by Airway Assessment: Mallampati: II TM distance: >3 FB Cardiovascular Assessment: Rate: normal Pulmonary Assessment: unlabored breathing Dental Assessment: Misc Assessment: Last Filed Perioperative Cognitive Screening None Anesthesia Plan: ASA 3 general, with a(n) intravenous induction Eric Packer is a 31 yo patient with who was admitted 01/23 with acute renal failure and Vtach arrestin setting of rhabdomyolysis from compartment syndrome after found down following fentanyl overdose,now s/p LUE and LLE fasciotomies s/p serial debridement and vac placement. Presenting today for repeat I&D and wound vac changes. ?? Patient on M/W/F dialysis TTE on 01/23 showing LVEF 46% with [...] from 05/03/2018, the prior LVEF was normal. PMH significant for: Polysubstance use disorder - current tobacco smoking, EtOH, cocaine, opioids HTN Appropriately NPO. Multiple debridements with ETT and LMA without issue (Grade 1 view with Mac4, iGel 5). No history of anesthetic complications or family history of major anesthetic complications. Labs reviewed - notable for HGB stable Plan for general anesthesia with LMA, standard ASA monitors, to PACU following procedure. All patient questions answered. The patient was informed of the risks, benefits and alternatives of anesthesia. These risks included, but were not limited to, post-operative nausea and/or vomiting, pain, sore throat, dental/lip trauma, and other rare but serious complications such as major organ damage, awareness, severe allergic reactions, position-related nerve injuries, and need blood transfusions. All questions were sought and answered. Consent was signed and placed in chart. Region - Other Informed Consent: Anesthetic plan and risks discussed with patient. Use of blood products discussed with patient who. Plan discussed with TRAVEL OCCUPATIONAL THERAPIST and attending. Anesthesia Screening documented in this encounter Plan of Treatment Upcoming Encounters Date Type Specialty Care Team Description 06/09/2022 Procedure visit Neurology Summer Wiggins MD [facility] NEUROLOGY DEPT [place], [place] [address] (Wo rk) Scheduled Procedures Name [...] MAR Action Action Date Dose Rate Site dexAMETHasone (Decadron) injection Given 02/24/2022 11:21 AM EDT 8 mg Intravenous, PRN, Starting on Tue02/24/22 at 1121, Until Tue02/24/22 at 1216, Anesthesia Intra-op, Routine dexmedeTOMIDine (Precedex) (4 mcg/mL) bolus Given 02/24/2022 11:45 AM EDT 4 mcg injection (Anesthsia) Intravenous, PRN, Starting on Tue02/24/22 at 1059, Until Tue02/24/22 at 1216, Anesthesia Intra-op, Routine Given 02/24/2022 11:15 AM EDT 4 mcg Given 02/24/2022 10:59 AM EDT 6 mcg fentaNYL (pf) (50 mcg/mL) multi-dose Given 02/24/2022 11:09 AM E DT 25 mcg injection Intravenous, PRN, Starting on Tue02/24/22 at 1057, Until Tue02/24/22 at 1216, Anesthesia Intra-op, Routine Given 02/24/2022 10:59 AM EDT 25 mcg Given 02/24/2022 10:57 AM EDT 25 mcg ketamine (Ketalar) (10 mg/mL) IV bolus Given 02/24/2022 11:17 AM EDT 50 mg injection (Anesthesia) Intravenous, PRN, Starting on Tue02/24/22 at 1117, Until Tue02/24/22 at 1216, Anesthesia Intra-op lactated ringers infusion New Bag 02/24/2022 10:42 AM EDT Intravenous, CONTINUOUS PRN, Starting on Tue02/24/22 at 1042, Until Tue02/24/22 at 1216, Anesthesia Intra-op midazolam (pf) (Versed) (1 mg/mL) multi-dose Given 10:42 AM EDT 2 mg injection Intravenous, PRN, Starting on Tue02/24/22 at 1042, Until Tue02/24/22 at 1216, Anesthesia Intra-op, Routine ondansetron (pf) (Zofran) (2 mg/mL) inje ction Given 02/24/2022 11:45 AM EDT 4 mg Intravenous, PRN, Starting on Tue02/24/22 at 1145, Until Tue02/24/22 at 1216, Anesthesia Intra-op, Routine propofoL (Diprivan) 10 mg/mL bolus injection Given 10:58 AM EDT 200 mg (Anesthesia) Intravenous, PRN, Starting on Tue02/24/22 at 1058, Until Tue02/24/22 at 1216, Anesthesia Intra-op documented in this encounter Additional [...] prior to 04/25/2022 Please call Infection Prevention [phone] with questions. documented as of this encounter Care Teams Mini Shifter Relationship Specialty Start Date End Date None PCP - General 03/10/19 None documented as of this encounter
--- OUTSIDE RECORDS SUMMARY | 2022-04-21 11:08 | XMS_ITS | Encounter Summary ---
:1990 [place] [address] Care Team Providers Name Role Phone None Primary Care Provider Unavailable Reason for Visit Auth/Cert Specialty Diagnoses / Procedures Referred By Contact Refer red To Contact Diagnoses Cardiac arrest intubated med misuse/covid Ximena Robles MD [facility] Procedures ER IPI Admit [facility] [place] [address] Referral ID Status Reason Start Date Expiration Date Visits Requ ested Visits Authorized [id number] 1 1 Encounter Details Date Type Department Care Team Description 02/22/2022 Anesthesia Event Main Operating Room Nathan Bazzi MD [facility] [place] [address] [facility] Tamika Pena CRNA [facility] [place] [address] [facility] [place] [address] Anesthesia Record Procedure Summary Procedure Name Responsible Anesthesia Start Anesthesia Stop Anesthesiologist Time Time DEBRIDEMENT Haleigh OLMSTEAD Stanislav, MD 02/22/22 0738 02/22/22 0926 SUBCU, MUSCLE, LOWER EXTREMITY (WRVU 2.7) (Left Thigh) Events Date Time Event Comment 02/22/2022 0657 0738 AN Verify 0738 Start 0738 An Start Data 0745 An Induction 0746 An Intubation 0748 Anesthesia Ready 0918 Extubation/LMA Out 0918 an stop data 0926 Recovery or ICU Handoff Patient care was transferred to the destination unit staff after review of the patient's medica l history, current anesthetic/surgi moe status and plan, according to the Provider Handoff Checklist. 0926 Stop Name Total Midazolam 2 mg fentaNYL 100 mcg IV Lidocaine 60 mg Propofol 200 mg Ondansetron 8 mg Dexmedetomidine 36 mcg Ketamine 10 mg/mL 50 mg ceFEPime (Maxipime) 1g vial attach to sodium chloride 0.9% 100 mL Mini-Bag 0 g Plus Lactated Ringers 150 mL Agents Name O2 Air N2O Sevoflurane [...] jugular vein, right; ÁNGEL Kam, Jere Shaw RN dialysis/apheresis catheter (re-wired from previous H.D. catheter, Trialysis catheter); Ultrasound Guidance; other (see comments) (13 afghan and 15 cm); Rogers Solano MAINTENANCE PLUMBER; 03/04/22; 1400 (removed today by ) Rectal Tube 02/09/22; 0149; rectal 02/09/22 0149 by [place], 02/22/22 2300 by tube with balloon (specify ÁNGEL Luna, Pretty Renteria RN mL) (40ml); 02/22/22; 2300 NPWT 02/11/22; 1022; Left, 02/11/22 1022 by Binder, 0 03/13/22 0854 by anterior, lower; arm; ÁNGEL Morris, Ruben Machado, RN 03/13/22; 0854 NPWT 02/11/22; 1023; Left, 02/11/22 1023 by [place]inder, 0 03/13/22 0922 by anterior; thigh; 03/13/22; ÁNGEL Morris , Marcio Machado, RN 0922 Supraglottic Mask Ventilation: Not 02/22/[address] [facility], 0 02/22/[address] [facility] (0); LMA Type: Tamika Gaines CRNA Benedicto, Andrew Gaines CRNA iGel; LMA Size: 5; Inserted by: st. d[facility] documented in this encounter Social History Tobacco [...] encounter OR Notes Anesthesia Postprocedure Evaluation - Nathan Ricardo MD - 03/02/2022 11:10 AM EDT Department of Anesthesiology Post-procedure Note Patient: Eric Packer Procedure Summary Date: 02/22/22 Room / Location: [address] MAIN OR Anesthesia Start: 737 Anesthesia Stop: 925 Procedures: DEBRIDEMENT SKIN, SUBCU, MUSCLE, LOWER EXTREMITY (WRVU 2.7) (Left Thigh) MODIFIER WOUND VAC (Left Thigh) DRESSING CHANGE (FOR OTHER THAN GALLOWAY) UNDER ANES., UPPER EXTREMITY (WRVU 0.86) (Left Arm) Diagnosis: (soft tissue infection) Surgeons: Dillon Betancourt MD Responsible Provider: Nathan Ricardo MD Anesthesia Type: general ASA Status: 3 All Anesthesia Providers: Anesthesiologist: Nathan Ricardo MD [employer]UAR[employer] CREW WORKER: Tamika Pena CRNA Vitals Value Taken Time BP 143/100 02/22/22 1100 Temp 36.4 ??C (97.5 ??F) 02/22/22 1045 Pulse 89 02/22/22 1100 Resp 10 02/22/22 1100 SpO2 96 % 02/22/22 1100 Pain Level 0 02/22/22 1045 Patient Location: PACU/[facility] Level of Consciousness: Awake and Alert Pain Management: Satisfactory Analgesia PONV: None Cardiovascular Status: At Baseline and Hemodynamically Stable Respiratory Status: At Baseline and Room Air Postoperative Fluid Status: Intravascular EUvolemia Possible Anesthetic Complications: NONE apparent at time of evaluation Final Primary Anesthesia Type: General (The anesthetic type performed was the same as planned.) Comments: Nathan Ricardo MD Anesthesia Preprocedure Evaluation - Nathan Ricardo MD - 02/22/2022 6:56 AM EDT Pre-Anesthesia Evaluation for: Eric Pcaker a 31 y.o. male. Procedure(s): DEBRIDEMENT SKIN, SUBCU, MUSCLE, LOWER EXTREMITY (WRVU 2.7) MODIFIER WOUND VAC DRESSING CHANGE (FOR OTHER THAN GALLOWAY) UNDER ANES., UPPER EXTREMITY (WRVU 0.86) Patient Active Problem List [...] Arteriogram Lower Extremity 02/06/2022 Dagoberto Vivas MD [facility] INTERVENTIONL RAD ??? PRO DEBRIDEMENT BONE EA ADDL 20 SQCM 02/08/2022 EACH ADDITIONAL 20 SQ CM, OR PART THEREOF (WRVU 1.8) performed by Shar Chatterjee MD at [facility] PAIGE ? ? PRO DEBRIDEMENT BONE MUSCLE &/FASCIA 20 SQ CM/< Left 01/29/2022 DEBRIDEMENT SKIN, SUBCU, MUSCLE, BONE, LOWER EXTREMITY (WRVU 4.1) performed by Tom Valdovinos MD [facility] MAIN OR ? ? PRO DEBRIDEMENT BONE MUSCLE &/FASCIA 20 SQ CM/< Left 01/31/2022 DEBRIDEMENT SKIN, SUBCU, MUSCLE, BONE, LOWER EXTREMITY (WRVU 4.1) performed by Jose Branch MD at [facility] MAIN OR ? ? PRO DEBRIDEMENT BONE MUSCLE &/FASCIA 20 SQ CM/< Left 01/31/2022 DEBRIDEMENT SKIN, SUBCU, MUSCLE, BONE UPPER EXTREMITY (WRVU 4.1) performed by Jose Branch MDat [facility] MAIN OR ? ? PRO DEBRIDEMENT BONE MUSCLE &/FASCIA 20 SQ CM/< Left 02/02/2022 DEBRIDEMENT SKIN, SUBCU, MUSCLE, BONE UPPER EXTREMITY (WRVU 4.1) performed by Hina Avitia MD at [facility] MAIN OR ? ? PRO DEBRIDEMENT BONE MUSCLE &/FASCIA 20 SQ CM/< Left 02/02/2022 DEBRIDEMENT SKIN, SUBCU, MUSCLE, BONE, LOWER EXTREMITY (WRVU 4.1) performed by Hina Avitia MD at [facility] MAIN OR ? ? PRO DEBRIDEMENT MUSCLE AND FASCIA 20 SQ CM/< Left 01/26/2022 DEBRIDEMENT SKIN, SUBCU, MUSCLE, LOWER EXTREMITY (WRVU 2.7) performed by Sigifredo Garcia MD at [facility] OR ? ? PRO DEBRIDEMENT MUSCLE AND FASCIA 20 SQ CM/< Left 01/26/2022 DEBRIDEMENT SKIN, SUBCU, MUSCLE, UPPER EXTREMITY (WRVU 2.7) performed by Sigifredo Garcia MD at [facility] OR ? ? PRO DEBRIDEMENT MUSCLE AND FASCIA 20 SQ CM/< Left 02/05/2022 DEBRIDEMENT SKIN, SUBCU, MUSCLE, LOWER EXTREMITY (WRVU 2.7) performed by Tom Valdovinos MD at [facility] OR ? ? PRO DEBRIDEMENT MUSCLE AND FASCIA 20 SQ CM/< Left 02/04/2022 DEBRIDEMENT SKIN, SUBCU, MUSCLE, LOWER EXTREMITY (WRVU 2.7) performed by Sigifredo Garcia MD at [facility] MAIN OR ? ? PRO DEBRIDEMENT MUSCLE AND FASCIA 20 SQ CM/< Left 02/15/2022 DEBRIDEMENT SKIN, SUBCU, MUSCLE, UPPER EXTREMITY (WRVU 2.7) performed by Jayme Armstrong MD at [facility] OR ? ? PRO DEBRIDEMENT MUSCLE AND FASCIA 20 SQ CM/< Left 02/19/2022 DEBRIDEMENT SKIN, SUBCU, MUSCLE, LOWER EXTREMITY (WRVU 2.7) performed by Jayme Armstrong MD at [facility] OR ? ? PRO DEBRIDEMENT SUBCUTANEOUS TISSUE 20 SQCM/< Left 02/04/2022 DEBRIDEMENT SKIN AND SUBCU, UPPER EXTREMITY (WRVU 1.01) [facility] ? ? PRO DEBRIDEMENT SUBCUTANEOUS TISSUE 20 SQCM/< Left 02/08/2022 DEBRIDEMENT SKIN AND SUBCU, LOWER EXTREMITY (WRVU 1.01) performed by Shar Chatterjee MD at [facility] OR ? ? PRO DEBRIDEMENT SUBCUTANEOUS TISSUE 20 SQCM/< Left 02/09/2022 DEBRIDEMENT SKIN AND SUBCU, LOWER EXTREMITY (WRVU 1.01) performed by Shar Chatterjee MD at [facility] OR ? ? PRO DEBRIDEMENT SUBCUTANEOUS TISSUE 20 SQCM/< Left 02/11/2022 DEBRIDEMENT SKIN AND SUBCU, LOWER EXTREMITY (WRVU 1.01) performed by Dillon Betancourt MD at [facility] OR ? ? PRO DEBRIDEMENT SUBCUTANEOUS TISSUE 20 SQCM/< Left 02/13/2022 DEBRIDEMENT SKIN AND SUBCU, LOWER EXTREMITY (WRVU 1.01) performed by Shar Chatterjee MD at [facility] OR ? ? PRO DEBRIDEMENT SUBCUTANEOUS TISSUE 20 SQCM/< Left 02/15/2022 DEBRIDEMENT SKIN AND SUBCU, LOWER EXTREMITY (WRVU 1.01) performed by Jayme Armstrong MD at [facility] OR ? ? PRO DEBRIDEMENT SUBCUTANEOUS TISSUE 20 SQCM/< Left 02/17/2022 DEBRIDEMENT SKIN AND SUBCU, LOWER EXTREMITY (WRVU 1.01) performed by Jayme Armstrong MD at [facility] OR ??? PRO DECOMP FOREARM, 2 COMPART, W/O DEBRIDE Left 01/23/2022 FASCIOTOMY; FOREARM AND\OR WRIST, FLEXOR & EXTENS. COMP (WRVU 10.79) performed by Sigifredo Garcia MD at [facility] OR ??? PRO DECOMPRESS ANT/LAT+POST LEG CMPART Left 01/23/2022 FASCIOTOMY, LOWER LEG, ALL COMPARTMENTS (WRVU 7.82) performed by Sigifredo Garcia MD at [facility] OR ??? PRO DRESSING CHANGE UNDER ANESTHESIA Left 02/11/2022 DRESSING CHANGE (FOR OTHER THAN GALLOWAY) UNDER ANES., UPPER EXTREMITY (WRVU 0.86) performed by Dillon Betancourt MD at [facility] OR ??? PRO DRESSING CHANGE UNDER ANESTHESIA Left 02/13/2022 DRESSING CHANGE (FOR OTHER THAN GALLOWAY) UNDER ANES., UPPER EXTREMITY (WRVU 0.86) performed by Shar Chatterjee MD at [facility] OR ??? PRO DRESSING CHANGE UNDER ANESTHESIA Left 02/17/2022 DRESSING CHANGE (FOR OTHER THAN GALLOWAY) UNDER ANES., UPPER EXTREMITY (WRVU 0.86) performed by Jayme Armstrong MD at [facility] OR ??? PRO DRESSING CHANGE UNDER ANESTHESIA Left 02/19/2022 DRESSING CHANGE (FOR OTHER THAN GALLOWAY) UNDER ANES., UPPER EXTREMITY (WRVU 0.86) performed by Jayme Armstrong MD at [facility] MAIN OR ? ? PRO I&D DEEP ABSCESS BURSA/HEMATOMA THIGH/KNEE REGION Left 02/06/2022 INCISION & DRAINAGE ABSCESS OR HEMATOMA, THIGH, KNEE SUPERFICIAL (WRVU 6.78) performed by Jayme Armstrong MD at [facility] OR ??? PRO INCIS OF HIP/THIGH FASCIA Left 01/23/2022 @FASCIOTOMY,THIGH OR HIP FOR COMPARTMENT SYNDROME (WRVU 12.89) performed by Sigifredo Garcia MD at [facility] OR ??? PRO NEGATIVE PRESSURE WOUND THERAPY, LESS THAN OR EQUAL TO 50 SQCM Left 02/05/2022 DRESSING CHANGE (VAC ASSISTED) UP TO 50SQ.CM (WRVU 0.55) performed by Orville Hennessy MD at [facility] MAIN OR ??? PRO NEGATIVE PRESSURE WOUND THERAPY, LESS THAN OR EQUAL TO 50 SQCM Left 02/05/2022 DRESSING CHANGE (VAC ASSISTED) UP TO 50SQ.CM (WRVU 0.55) performed by Tom Valdovinos MD at [facility] OR ??? PRO NEGATIVE PRESSURE WOUND THERAPY, LESS THAN OR EQUAL TO 50 SQCM Left 02/08/2022 DRESSING CHANGE (VAC ASSISTED) UP TO 50SQ.CM (WRVU 0.55) performed by Shar Chatterjee MD at [facility] OR ??? PRO OPEN TREAT MANDIBLE CONDYLE FX, COMPL 04/27/2013 OPEN TREATMENT, COMPLEX MANDIBLE FX., MULTI APPROACH, W/ FIXATION performed by Kishore Neil MD at [facility] OR ??? PRO REVISE MEDIAN N/CARPAL TUNNEL SURG Left 01/23/2022 MEDIAN NERVE DECOMPRESSION (CARPAL TUNNEL RELEASE) (WRVU 4.97) performed by Sigifredo Garcia MD at [facility] OR ??? PRO SEC CLSR SURG WOUND/DEHSN EXTENSIVE/COMPLICATED Left 01/26/2022 SECONDARY CLOSURE SURGICAL WOUND OR DEHISCENCE, EXTENSIVE OR COMPLICATED, UPPER EXTREMITY (WRVU 12.04) performed by Sigifredo Garcia MD at [facility] MAIN OR Social History Tobacco Use [...] Physical Exam: Preprocedure Vitals Current as of 02/22/22 0656 BP: 150/111 Pulse: Resp: 18 SpO2: 100 Temp: 37.1 ??C (98.8 ??F) Height: 182.9 cm (6' 0.01) (02/05/22) Weight: 104.3 kg (229 lb 15 oz) (02/09/22) BMI: 31.18 IBW: 77.6 kg (171 lb 1.9 oz) Last edited 02/22/22 0457 by KENDAL Airway Assessment: Mallampati: II TM distance: >3 FB Neck ROM: full Cardiovascular Assessment: Rhythm: regular Rate: normal Pulmonary Assessment: unlabored breathing Dental Assessment: Misc Assessment: IV access: Central line Last Filed Perioperative Cognitive Screening None [...] wound vac changes. ?? Patient on M/W/F dialysis. TTE on 01/23 showing LVEF 46% with mild hypokinesis and mildly dilated RV ?? Followed by [facility] significant for: Polysubstance use disorder - [...] PACU following procedure. All patient questions answered. Serial anesthesia consent verified. Region - Other Informed Consent: Anesthetic plan and risks discussed with patient. Use of blood products discussed with patient who. Plan discussed with RESTUARANT CREW WORKER and attending. Anesthesia Screening documented in this encounter Plan of Treatment Upcoming Encounters Date Type Specialty Care Team Description 06/09/2022 Procedure visit Neurology Summer Wiggins MD [facility] ER NEUROLOGY DEPT [place], [place] [address] (Wo rk) Scheduled Procedures Name [...] Dose Rate Site dexmedeTOMIDine (Precedex) (4 Given 02/22/2022 8:20 AM EDT 8 mcg mcg/mL) bolus injection (Anesthsia) Intravenous, PRN, Starting on Tue02/22/22 at 0800, Until Tue02/22/22 at 1000, Anesthesia Intra-op, Routine Given 02/22/2022 8:12 AM EDT 8 mcg Given 02/22/2022 8:06 AM EDT 8 mcg fentaNYL (pf) (50 mcg/mL) multi-dose Given 02/22/2022 8:48 AM ED T 25 mcg injection Intravenous, PRN, Starting on Tue02/22/22 at 0800, Until Tue02/22/22 at 1000, Anesthesia Intra-op, Routine Given 02/22/2022 8:19 AM EDT 25 mcg Given 02/22/2022 8:00 AM EDT 50 mcg ketamine (Ketalar) (10 mg/mL) IV bolus Given 02/22/2022 8:29 AM EDT 20 mg injection (Anesthesia) Intravenous, PRN, Starting on Tue02/22/22 at 0756, Until Tue02/22/22 at 1000, Anesthesia Intra-op Given 02/22/2022 7:56 AM EDT 30 mg lactated ringers infusion New Bag 02/22/2022 7:38 AM EDT Intravenous, CONTINUOUS PRN, Starting on Tue02/22/22 at 0738, Until Tue02/22/22 at 1000, Anesthesia Intra-op lidocaine (pf) (Xylocaine) (20 mg/mL) 2% Given 02/22/2022 7:47 A M EDT 60 mg injection syringe Intravenous, PRN, Starting on Tue02/22/22 at 0747, Until Tue02/22/22 at 1000, Anesthesia Intra-op, Routine midazolam (pf) (Versed) (1 mg/mL) multi-dose Given 02/22/2022 7: 42 AM EDT 2 mg injection Intravenous, PRN, Starting on Tue02/22/22 at 0742, Until Tue02/22/22 at 1000, Anesthesia Intra-op, Routine ondansetron (pf) (Zofran) (2 mg/mL) inje ction Given 02/22/2022 8:12 AM EDT 8 mg Intravenous, PRN, Starting on Tue02/22/22 at 0812, Until Tue02/22/22 at 1000, Anesthesia Intra-op, Routine propofoL (Diprivan) 10 mg/mL bolus injection Given 7:47 AM EDT 200 mg (Anesthesia) Intravenous, PRN, Starting on Tue02/22/22 at 0747, Until Tue02/22/22 at 1000, Anesthesia Intra-op documented in this encounter Additional [...] prior to 04/25/2022 Please call Infection Prevention [phone] with questions. documented as of this encounter Care Teams Correspondence School Teacher Relationship Specialty Start Date End Date None PCP - General 03/10/19 None documented as of this encounter
--- OUTSIDE RECORDS SUMMARY | 2022-04-21 11:14 | XMS_ITS | Encounter Summary ---
:1990 Author Organization [place] [address] Care Team Providers Name Role Phone None Primary Care Provider Unavailable Reason for Visit Auth/Cert Specialty Diagnoses / Procedures Referred By Contact Refer red To Contact Diagnoses Cardiac arrest intubated med misuse/covid Tex Robles MD [facility] Procedures ER IPI Admit [facility] [place] [address] Referral ID Status Reason Start Date Expiration Date Visits Requ ested Visits Authorized [id number] 1 1 Encounter Details Date Type Department Care Team Description 02/22/2022 Surgery Main Operating Room Guanaco Betancourt MD DEBRIDEMENT SKIN, [facility], [facility] EXTREMITY (WRVU 2.7) [facility] GENERAL SURGE [place] [id number] [phone] Social History Tobacco Use Types Packs/Day Years [...] on file documented as of this encounter Last Filed Vital Signs Vital Sign Reading Time Taken Comments Blood Pressure 140/102 02/22/2022 10:00 AM EDT Pulse 84 02/22/2022 10:00 AM EDT Temperature 36.7 ??C (98.1 ??F) 02/22/2022 10:00 AM EDT Respiratory Rate 8 02/22/2022 10:00 AM EDT Oxygen Saturation 100% 02/22/2022 10:00 AM EDT Inhaled Oxygen Concentration - - Weight 104.3 kg (229 lb 15 oz) 02/09/2022 9:00 PM EDT Height 182.9 cm (6' 0.01) 02/05/2022 4:00 AM EDT Body Mass Index 22.15 03/03/2022 9:23 AM EDT documented in this encounter Discharge Summaries Jayme Armstrong MD - 03/23/2022 3:19 PM EDT Images from the original note were not included. General Surgery Inpatient - Discharge Summary Patient Name: Alix Holland Patient Age: 31 y.o. Birthdate: 1990 Admit date: 01/23/2022 Discharge date: 03/23/2022 Admitting Physician: Lu burkett. providers found Primary Diagnosis: Compartment syndrome Secondary Diagnosis: Active Hospital Problems Diagnosis ? ? SHAMAR ROBB compartment syndrome s/p fasciotimies, I&D 01/23/22, 01/26/22 (Dr. Garcia), I&D w/ partial closure 01/29/22 (Dr. Valdovinos), I&D 01/31/22 (Dr. Branch) ??? Numbness and tingling of left lower extremity ??? Severe protein-calorie malnutrition Protein-calorie Malnutrition: < or equal to 50% of estimated energy requirement for > or equal to 5 days and >2% weight loss in 1 week is consistent with severe protein-calorie malnutrition in the setting of acute illness or injury (Keven et al, JPEN J Parenteral Enteral Nutr. 2011; 36(3): 273-83) ??? Transaminitis ??? Aspiration pneumonia ??? Rhabdomyolysis ??? Asymptomatic COVID-19 virus infection ??? Lactic acidosis ??? ALTHEA (acute kidney injury) ??? Continuous renal replacement therapy (CRRT) for acute renal failure ??? Cardiac arrest Resolved Hospital Problems No resolved problems to display. Active Non-Hospital Problems Diagnosis ??? Angioedema ??? Chest pain ??? Smoker ??? Mandible fracture HPI: (Per Cristina Hillman, LEVELER HELPER on 01/23/2022) History provided by patient's father and chart review. The patient was found by his father at 5pm this evening after an unknown period of down-time. The patient was able to speak and reported left armpain; he also reported taking fentanyl. His father called 911. On EMS arrival he was given narcan without change to neuro exam. The transport events to [facility] are not clear, but the patient was given a total of 6mg narcan, 10mg IMversed (for ?seizure activity), and and IO placed. He also developed Vtach with rates in the 220s had CPR performed via Jitendra. [facility] underwent def[facility]illation with ROSC. He was given sodium bicarb, calcium, 3L IVF. He was febrile to 103.5 and also received IV tylenol, 2gm cefepime, and vancomycin. A COVID test returned positive. Labs revealed significant hyperkalemia >7, ALTHEA with creatinine 4.3, and lactate >10. He was given additional shifting therapy with insulin/dextrose; repeat 5.4. An OGT was placed with return of dark brown fluid. A left femoral CVL was placed. Pt was also hypoxic on ventilator with SpO2 95% on 100% FiO2. CXR was negative for acute process. Sedation was discontinued due to hypotension, and he was instead given rocuronium boluses. He was started on levophed and [place] [facility] [place]. ?? Urine drug screen: +barbiturates, +oxycodone, +opiates Tylenol, salicylates, and ethanol were negative ?? Notable labs: WBC 27.6 Hgb 21.5 Plts 383 ?? K 7.8-> 5.4 CO2 11 BUN 32 Cr 4.37 AG 35 Lactate >10 ?? AST 3588 ALT 990 ?? Trop-I >9000 ?? SARS-CoV-2 RNA detected ? En[place]route [place] [facility] he was given boluses of ketamine for ventilator synchrony. He arrives on phed with HR in the 150s. He was given 2L LR bolus with improvement in HR and vasopressors. His left forearm is cool and firm to the touch with purple discoloration. I cannot appreciate a pulse. He is able to follow commands in RUE and RLE. Operations/Major Procedures and Significant Findings: 01/23: L thigh fasciotomy, L lower leg fasciotomy, L buttock fasciotomy, L forearm fasciotomy 01/26: Debridements and wound vac change 01/29: Debridement of fasciotomies, closure of L lower leg fasciotomy, closure of dorsal forearm fasciotomy, partial closure L thigh fasciotomy 01/31: Debridement and wound vac change 02/02: Debridement and wound vac change 02/04: Debridement and wound vac change 02/05: Debridement and wound vac change, 02/06:??IR embolization of SGA pseudoaneurysm 02/06:??LLE hematoma evacuation and washout 02/08:??washout and debridement LLE, vac change LUE 02/09:??washout and debridement LLE with vac placement 02/11: washout and vac change, LLE and LUE 02/13: washout and vac change, LLE and LUE 02/15: washout and vac change, LLE and LUE, possible drainage of L gluteal abscess 02/19: washout and vac change, LLE and LUE 02/22: washout and vac change, LLE and LUE 02/24: washout and vac change, LLE and LUE 03/01: washout and vac change, LLE and LUE 03/03: washout and vac change, LLE and LUE 03/05: BEDSIDE washout and vac change, LLE and LUE 03/07: Bedside washout and vac change, LLE and LUE 03/08: Bedside washout and vac change, LLE and LUE 03/10: OR for washout and skin grafting LUE and LLE 03/13: OR LUE and LLE dressing change 03/15: OR for skin graft dressing change for LUE and LLE Hospital Course: MICU Course (01/23/22-02/02/22) Alix Holland was initially admitted to the MICU post-cardiac arrest 2/2 hyperkalemia 2/2 rhabdomyolysis. At that time he was intubated and required vasoactive agents for hypotension. He received NAC for transaminitis. 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 Chest CT showed partial collapse of left lower lung. Exam was concerning for LUE and LLE compartment syndrome for which orthopedic surgery was consulted. He was found to be COVID-positive on admission, asymptomatic. He was intubated on admission following CPR and cardiac arrest, however did not show signs of hypoxia and remained on minimal vent settings while intubated. Following admission he was started on CRRT in the setting of hyperkalemia and rhabdomyolysis. On 01/23 he was taken to the OR for fasciotomies of the L extremities per above. On 01/24 MRI head showed acute globi pallidi infarctions, and scattered punctate infarcts in both cerebella hemispheres. Neurology was consulted at that time. 01/25 CT angiogram of his head and neck was unremarkable. He returned to the OR again on 01/26. He was extubated in the evening on 01/26. On admission he was started on antibiotics for concerns of possible pneumonia (ruled out given improving pulmonary status) and continued for wound coverage. He required frequent RTOR on 01/29, 01/31, 02/02 for debridement, washout, and vac change of his fasciotomies. On 02/02 CRRT was stopped and he was transition to iHD and was transferred to the floor on the Medicine service. Medicine Service Floor Course (02/02/22-02/05/22) Due to ongoing leukocytosis in the setting of prolonged antibiotic use he was tested for C. difficile which came back positive on 02/02. He was started on p.o. vancomycin. Following transfer to the floorpatient had ongoing transfusion requirement for consistently downtrending hemoglobins. He required 2units pRBC on 02/03. He RTOR again 02/04 and 02/05 for irrigation and debridement. On 02/05 he required 5U pRBC + FFP + Vit K + DDAVP for ongoing oozing and bleeding from his L thigh wound and wound VAC. He was subsequently transferred to the SICU on 02/05 in the setting of hemorrhagic shock. SICU Course (02/05/22-02/10/22) Upon arrival to the SICU he had ongoing bleeding from his left thigh wound. He was started on vasoactive agents for hypotension. On 02/06 patient required 6U pRBC and was started on TXA drip. He then went to IR for embolization of the left superior division of his gluteal artery followed by OR for left hematoma evacuation and washout. Due to hemorrhagic shock and hemodynamic instability he was restarted on CRRT as he was unable to tolerate iHD. He required 2U pRBC on 02/07 for ongoing slow oozing. He returned to the OR again for washout and VAC change on 02/08 and 02/09. On 02/09 he required 1U pRBC. Wound cultures were positive for Pseudomonas and Serratia and antibiotics were escalated. On 02[facility]10 [facility] and transferred back to the floor on the Acute Care Surgery service. Acute Care Surgery Floor Course (02/10/22-03/23/22) Following transfer to the floor patient returned to the OR on 02/11. He continued with iHD and was placed on a total fluid restriction d/t hyponatremia in the setting of anuria per nephrology. During admission patient had serial head imaging. MRI on 02/12 showed expected evolution of hypodensities and neurology recommended no further work-up. Due to increasing leukocytosis he was started on IV Flagyl for concerns of worsening C. difficile in the setting of ongoing antibiotic use. CT was obtained that showed likely left gluteal abscess with plan to continue abx and attempt further washout in OR. On 02/17 the plastic surgery team saw the patient in the OR during debridement and reported LUE would likely be ready for grafting the following week. On 02/19 there was concern for possible upper extremity DVT, duplex scan was negative. Weightbearing status was liberalized to weightbearing as tolerated on all extremities on 02/19. On 02/20 patient was normonatremic and fluid restriction was lifted. On 02/22 his wound cultures returned showing Pseudomonas resistant to cefepime. Due to improvement in leukocytosis and fevers, despite resistance, and improvement in status symptoms cefepime and IV Flagyl were discontinued per ID recs. P.o. Vanco was continued until 03/01 to cover C. difficile following discontinuation of other antibiotics. Through his complicated stay, Alix did not meet his nutrition goals. This is likely due to a multitude of reasons, namely frequently missing meals due to being n.p.o. for q2d debridement and wound VAC changes in the OR, increased requirements due to size of wounds, extra protein losses from dialysis, and limitations on supplemental nutrition modalities given total fluid restriction. He was started onMarinol. He occasionally had to be switched to low phosphorus meals given his hyperphosphatemia but for the most part was able to have a fully regular diet. He also continued to meet frequently with PTand OT in order to address his deconditioning and contractures that were present. Patient began making urine again on 02/15, however continued on iHD due to ongoing renal failure until 02/19 as the patient was producing copious urine and regulating his electrolytes by himself. His BMP, Mag and Phos were monitored daily with strict I/Os to ensure that he did not need any addition iHD.He received EPO 16,000 after remaining off of dialysis given his anemia. These were discontinued with his improving renal function. He continued to autodiueresis with appropriate regulation of his electrolytes. Given that he no longer required iHD, a PICC was placed for smaller IV access (poor vascular access so unable to place PIV). His IJ was subsequently removed. His iron stores were noted to be low and he was started on IV iron for 3 days on 03/08-03/10. He was started on a scheduled bowel regimen on 03/09 due to iron causing constipation. He was progressed to daily iron supplementation on 03/11. During admission on the floor he continued with frequent wound debridements, washouts, and vac changes in the OR on 02/13, 02/15, 02/17, 02/19, 02/22, 02/24, 02/26, 03/01 and 03/03. He progressed to bedside woundvac change on 03/05/2022 (0.4 mg IV Dilaudid and 5cc of lidocaine on upper extremity) with subsequent changes on 03/07/2022, 03/08/2022. Wound cultures from 03/05 demonstrated MRSA. Skin grafting of the LUE and LLE on 03/10/2022. On 03/12: bright green color noticed on LUE wound vac concerning for pseudomonas infection. Started on Zosyn. 03/13: OR LUE and LLE dressing change with findings of: OR LUE and LLE dressing change with intraoperative findings of - LLE and LUE vacs with green discoloration concerning for pseudomonas. Underlying STSGs healthy appearing with no evidence of infection, 100% take to underlying tissue at this time. Re dressed with adaptic coated with silver wound gel, covered with telfa, gauze, kerlix, coban. ID recsfor new wound cultures on 03/14 from wounds, contacting the lab to have them assess the sensitivitiesof the 03/05 culture to ceftazidime- avibactam and ceftolozane-tazobactam, starting on PO vanc at 125mgBID, Vancomycin IV 15mg/kg per Pharmacy and Meropenam 1g Q8H. 03/14: No acute changes, NPO at midnight for OR on 03/15 03/15: OR for dressing changes 03/16: OR for dressing changes, Vanc/meropenem course completed. Allowed for activity as tolerated. Weaning dilaudid HAND STRIPER. Seen by PT/OT with rec for rehab. 03/17: Dressings changed at bedside. Continue HAND STRIPER weaning. Low phos, high protein, high calorie diet.IV vanc and meropenem started (-03/19) and PO vanc (- 03/26). Emesis x1. 03/18: HAND STRIPER dc'd. BIT consulted for suboxone. Bedside dressing change. 03/19: To be dc'd to [facility] with bed availability. High UOP w/ suspected impaired renal concentrating ability. C diff precautions removed. 03/20: On regular diet as high protein diet may be contributing to inability to concentrate urine. BMP WNL. 03/21: Medically ready for DC. Oxycodone changed to dilaudid. 03/22-03.23: suboxone prescription coordinated w/ [facility] During his course, psychiatry was consulted and met with Alix. He was receptive to RC and started onsuboxone. Prior to discharge patient's pain was well controlled with oral pain medications, ayala catheter wasremoved, patient was voiding without difficulty, and wound(s) were intact and healing appropriately.Patient was having regular bowel movements, and tolerating a Regular diet. Vitals were within normallimits and patient was determined medically ready for discharge to rehab on 03/23/2022. Patient will be d/c'd with PICC line in place after discussion with [facility], who stated that they are OK with his PICC line staying in. We recommend that this patient receive daily dressing changes. Important Studies and Lab Data: See below. Pathology: Microbiology: Abscess/Wound Aspirate Culture Date Value Ref Range Status 02/19/2022 (A) Final Rare Serratia marcescens Rare Pseudomonas aeruginosa Tissue Culture Date Value Ref Range Status 02/09/2022 (A) Final Few Pseudomonas aeruginosa Few Serratia marcescens Susceptibilities previously reported Blood Culture Date Value Ref Range Status 02/06/2022 No growth at 5 days. Final Lower Respiratory Culture Date Value Ref Range Status 01/23/2022 (A) Final Many Staphylococcus aureus Few mixed bacterial morphotypes suggestive of normal upper respiratory yessy C Diff Screen Date Value Ref Range Status 02/01/2022 Positive (A) Negative Final Comment: PCR Pos C. diff?? Positive (GDH positive, toxin antigen negative, toxin PCR positive) DNA from a toxigenic strain of C. difficile was detected, although the free toxin itself was not detected.?? These results cannot distinguish between colonization and infection. They must be interpreted within the patient???s overall clinical context. Consider other causes for diarrhea or the presence of a non-toxigenic strain. Patient needs to remain on Soap & Water Contact Precautions until discharge or approval by Infection Prevention. Labs: Lab Results Component Value Date Sodium 139 03/23/2022 Potassium 4.1 03/23/2022 Chloride 101 03/23/2022 CO2 25 03/23/2022 BUN 15 03/23/2022 Creatinine 0.55 (L) 03/23/2022 Glucose Lvl 102 03/23/2022 CBC Lab Results Component Value Date WBC 8.1 03/23/2022 Hemoglobin 8.9 (L) 03/23/2022 Hematocrit 26.2 (L) 03/23/2022 Platelets 230 03/23/2022 Imaging: Results for orders placed or performed during the hospital encounter of 01/23/22 XR Chest One View (Exam End: 01/23/2022 2:10 AM) Impression ET tube with its tip in appropriate position. Thank you for letting us participate in the care of this patient. If you are a health care provider and have any questions regarding this report, please contact the number below. For patients who have questions please contact the health nursing care attendant that requested your imaging first. Head wo Contrast (Generic) (Exam End: 01/23/2022 3:58 AM) Impression Globi pallidi infarcts. Mild cerebral edema. Thank you for letting us participate in the care of this patient. If you are a health care provider and have any questions regarding this report, please contact the number below. For patients who have questions please contact the health nursing care attendant that requested your imaging first. Electronically signed by: Rex Addison MD, [facility] ([phone]), at 01/23/2022 4:27 AM XR Abdomen 1 view (Generic) (Exam End: 01/23/2022 2:10 AM) Impression The tip of the NG tube is in the distal stomach with redundant tubing looped in the fundus. Thank you for letting us participate in the care of this patient. If you are a health care provider and have any questions regarding this report, please contact the number below. For patients who have questions please contact the health nursing care attendant that requested your imaging first. Electronically signed by: Jacky Mello MD, [facility] ([phone]), at 01/23/2022 8:[address] Lower Extremity wo Contrast Left (Generic) (Exam End: 01/23/2022 3:58 AM) Impression LEFT 1. No osseous abnormality 2. The clinically palpable deep soft tissue mass is not identified with certainty. Equivocal ill-defined low density within vastus intermedialis muscle represents muscle injury, lesion or related to technique. 3. Subcutaneous and deep fascial edema of the LEFT lower pelvis and upper thigh. Findings are nonspecific and could be related to any combination of fasciitis, cellulitis, trauma or neoplastic infiltration. Consider supplementary MRI if the concern for soft tissue mass remains high. Thank you for letting us participate in the care of this patient. If you are a health care provider and have any questions regarding this report, please contact the number below. For patients who have questions please contact the health nursing care attendant that requested your imaging first. Electronically signed by: Melita Mills MD, [facility] ([phone]), at 01/24/2022 1:[address] Chest wo Contrast (Generic) (Exam End: 01/23/2022 3:58 AM) Impression FINDINGS/IMPRESSION: Airways: Endotracheal tube tip 3.1 cm above the maia. Lungs/Pleura: Partial collapse of the LLL dorsally/medially. Mild dependent atelectasis bilaterally. Mediastinum/Kolton: Unremarkable. Cardiac/Vasculature: Unremarkable. Included Upper Abdomen: Esophagogastric tube loops within the fundus, terminating within the region of the pylorus. Fluid within the included upper small and large bowel segments. Osseous Structures: No acute abnormality identified. Thank you for letting us participate in the care of this patient. If you are a health care provider and have any questions regarding this report, please contact the number below. For patients who have questions please contact the health nursing care attendant that requested your imaging first. Electronically signed by: Rex Addison MD, [facility] ([phone]), at 01/23/2022 4:[address] Upper Extremity w Contrast Left (Exam End: 01/23/2022 3:58 AM) Impression Diffuse muscular hypoattenuation from the mid forearm into the hand could be sequela of edema/myositis or ischemia. Thank you for letting us participate in the care of this patient. If you are a health care provider and have any questions regarding this report, please contact the number below. For patients who have questions please contact the health nursing care attendant that requested your imaging first. Electronically signed by: Rex Addison MD, [facility] ([phone]), at 01/23/2022 4:58 AM XR Forearm Left (Generic) (Exam End: 01/23/2022 6:32 AM) Impression FINDINGS/IMPRESSION: No acute fracture of the radius or ulna seen. Diffuse soft tissue stranding and edema of the forearm. Preliminary report signed by: Alcira Queen at 01/23/2022 6:55 AM I have personally reviewed the image(s) and the resident's interpretation and agree with the findings, Rex Addison MD at 01/23/2022 7:14 AM Thank you for letting us participate in the care of this patient. If you are a health care provider and have any questions regarding this report, please contact the number below. For patients who have questions please contact the health nursing care attendant that requested your imaging first. Electronically signed by: Rex Addison MD, [facility] ([phone]), at 01/23/2022 7:14 AM XR Chest One View (Exam End: 01/23/2022 6:32 AM) Impression Right IJ central venous line with catheter tip projecting over the lower SVC. Preliminary report signed by: Alcira Queen at 01/23/2022 6:43 AM I have personally reviewed the image(s) and the resident's interpretation and agree with the findings, Rex Addison MD at 01/23/2022 6:56 AM Thank you for letting us participate in the care of this patient. If you are a health care provider and have any questions regarding this report, please contact the number below. For patients who have questions please contact the health nursing care attendant that requested your imaging first. Electronically signed by: Rex Addison MD, [facility] ([phone]), at 01/23/2022 6:56 AM XR Femur 2 views Left (Generic) (Exam End: 01/23/2022 2:04 PM) Impression No significant osseous finding. Thank you for letting us participate in the care of this patient. If you are a health care provider and have any questions regarding this report, please contact the number below. For patients who have questions please contact the health nursing care attendant that requested your imaging first. Electronically signed by: Lisandro Pruett MD, [facility] ([phone]), at 01/23/2022 2:10 PM XR Tibia Fibula Left (Generic) (Exam End: 01/23/2022 2:04 PM) Impression No bony abnormality seen. Thank you for letting us participate in the care of this patient. If you are a health care provider and have any questions regarding this report, please contact the number below. For patients who have questions please contact the health nursing care attendant that requested your imaging first. Electronically signed by: Jacky Mello MD, [facility] ([phone]), at 01/23/2022 2:07 PM XR Chest One View (Exam End: 01/23/2022 4:54 PM) Impression Lines and tubes are in position as above. Left internal jugular line is present with tip in the superior vena cava. Thank you for letting us participate in the care of this patient. If you are a health care provider and have any questions regarding this report, please contact the number below. For patients who have questions please contact the health nursing care attendant that requested your imaging first. Electronically signed by: Lisandro Pruett MD, [facility] ([phone]), at 01/23/2022 5:01 PM MRI Brain wo Contrast (Exam End: 01/24/2022 4:27 PM) Impression Acute globi pallidi infarctions. Scattered punctate infarctions in the cerebellar hemispheres. Thank you for letting us participate in the care of this patient. If you are a health care provider and have any questions regarding this report, please contact the number below. For patients who have questions please contact the health nursing care attendant that requested your imaging first. Electronically signed by: Bernadine Edward [facility] ([phone]), at 01/24/2022 4:[address] Angiogram [place] (Exam End: 01/24/2022 11:32 PM) Impression Normal appearance of the large and medium size arteries of the head and neck Thank you for letting us participate in the care of this patient. If you are a health care provider and have any questions regarding this report, please contact the number below. For patients who have questions please contact the health nursing care attendant that requested your imaging first. Angiogram Carotids (Exam End: 01/24/2022 11:32 PM) Impression Normal appearance of the large and medium size arteries of the head and neck Thank you for letting us participate in the care of this patient. If you are a health care provider and have any questions regarding this report, please contact the number below. For patients who have questions please contact the health nursing care attendant that requested your imaging first. Chest Abdomen Pelvis w Contrast (Generic) (Exam End: 01/30/2022 12:50 PM) Impression 1. A 7.5 x 2.7 cm hypodense lesion in the left gluteus medius with subtle rim enhancement, likely represents postoperative changes status post excisional debridement of the left gluteus medius. However, an abscess cannot be excluded. Recommend attention on follow-up. 2. Diffuse anasarca. 3. Hepatomegaly. I Alcira Queen MD discussed impression #1 with Agnieszka López APRN on 01/30/2022 2:56 PM. Preliminary report signed by: Alcira Queen at 01/30/2022 3:03 PM I have personally [...] who have questions please contact the health nursing care attendant that requested your imaging first. Electronically signed by: Melita Mills MD, [facility] ([phone]), at 01/30/2022 3:20 PM IR Arteriogram Lower Extremity (Exam End: 02/06/2022 3:34 PM) Impression 1. Left pelvic and lower extremity diagnostic angiography showed active extravasation/pseudoaneurysm from a branch of the superior gluteal artery. 2. Empiric Gelfoam embolization of deep femoral artery branches 3. Empiric Gelfoam and coil embolization of superficial LEFT circumflex iliac artery. 4. Empiric Gelfoam embolization of LEFT internal iliac gluteal arterial branches. 5. Embolization of actively bleeding branch of the LEFT superior gluteal artery. Plan: 1. Transfer back to ICU 2. Flat for 2 hours, following Right CUT OFF [employer] Mynx closure deployment 3. Monitor for Right groin hematoma and bleeding. 4. IR will continue to follow, call for any questions or concerns. PROCEDURE SUMMARY: - Arterial access with ultrasound guidance - Internal iliac angiography: Unilateral - External iliac angiography: Unilateral - Superselective angiography: Performed as described below - Additional procedure(s): None PROCEDURE DETAILS: Pre-procedure Consent: Informed consent for the procedure including risks, benefits and alternatives was obtained and time-out was performed prior to the procedure. Preparation: The site was prepared and draped using maximal sterile barrier technique including cutaneous antisepsis. Anesthesia/sedation Level of anesthesia/sedation: General anesthesia Anesthesia/sedation administered by: Anesthesiology Total intra-service sedation time (minutes): Please refer to anesthesia notes for further details. Access Local anesthesia was administered. The vessel was sonographically evaluated and judged to be patent. Real time ultrasound was used to visualize needle entry into the vessel and a permanent image was stored. A 5 Surinamese sheath was placed. Vessel accessed: Right common femoral artery Access technique: Micropuncture set with 21 gauge needle Left pelvic angiography The left pelvic arterial system was catheterized using a 150 cm 0.035 3J guidewire, 5 Surinamese Berenstein catheter, 3 Surinamese renegade STC microcatheter and wire. Vessel catheterized: Common iliac artery. Findings: Angiography not performed Vessel catheterized: External iliac artery. Findings: Patent distal external iliac artery. No active extravasation from the deep circumflex iliac territory. The common femoral artery and proximal visualized deep and superficial femoral arteries are widely patent. Vessel catheterized: Lateral superficial circumflex femoral artery Findings: Vessel irregularity and delayed contrast staining. Gelfoam and coils deployed. Vessel catheterized: Profunda femoris artery Findings: Tapering of distal branch arteries. Gelfoam deployed. Vessel catheterized: LEFT internal iliac artery Findings: Patent mid and distal branches with abnormal blush of contrast in the region of the LEFT fasciotomy as well as active extravasation and pseudoaneurysm in the region of a branch of the superior gluteal artery Vessel catheterized: Branch of the LEFT superior gluteal artery. Findings: Active extravasation/pseudoaneurysm. Gelfoam and coils deployed. Embolization Catheter position for embolization #1: LEFT Deep femoral artery - Embolic(s): Gelfoam slurry - Angiographic endpoint: Slowed flow (contrast visible for fewer than 5 heartbeats) Catheter position for embolization #2: LEFT superficial circumflex iliac artery - Embolic(s): Gelfoam slurry and x2 2 x 5 mm figure 8 coil - Angiographic endpoint: Complete stasis (static contrast column for at least 5 heartbeats) Catheter position for embolization #3: Branch of the LEFT superior gluteal artery - Embolic(s): 2 x 5 mm figure 8 coil, 4 mm complex helical coil, 4 mm vortex coil - Angiographic endpoint: Complete stasis (static contrast column for at least 5 heartbeats) Catheter position for embolization #4: LEFT Internal iliac artery - Embolic(s): Gelfoam slurry - Angiographic endpoint: Near-stasis (not static, but contrast visible for at least 5 heartbeats) Closure Access site angiography performed: Yes Findings: Patent vessel with appropriate access level Arterial closure technique: Mynx Hemostasis achieved from closure technique: Yes Duration of manual compression (minutes): 5 Contrast Contrast agent: Omnipaque 350 Contrast volume (mL): 100 Radiation Dose Fluoroscopy time (minutes): 24.5 Reference air kerma (mGy): 549 Kerma area product (Gy-cm2): 65.5 Additional Details Additional description of procedure: None Equipment details: None Specimens removed: None Estimated blood loss (mL): 11-50 Standardized report: [id number] Attestation Signer name: Nicole Vivas MD I attest that I was present and scrubbed for the entire procedure. I reviewed the stored images and agree with the report as written. Sedation attestation: N/A I have personally reviewed the image(s) and the resident's interpretation and agree with the findings, Nicole Vivas MD at 02/08/2022 3:14 PM Thank you for letting us participate in the care of this patient. If you are a health care provider and have any questions regarding this report, please contact the number below. For patients who have questions please contact the health nursing care attendant that requested your imaging first. Electronically signed by: Nicole Vivas MD, [facility] ([phone]), at 02/08/2022 3:14 PM XR Chest One View (Exam End: 02/07/2022 1:15 PM) Impression No appreciable interval change. Unchanged position of the central venous catheters, as above. Thank you for letting us participate in the care of this patient. If you are a health care provider and have any questions regarding this report, please contact the number below. For patients who have questions please contact the health nursing care attendant that requested your imaging first. Electronically signed by: Boubacar Olsen MD, [facility] ([phone]), at 02/07/2022 1:37 PM MRI Brain wo Contrast (Exam End: 02/11/2022 5:13 PM) Impression Evolution of bilateral globi pallidi injury. Question subtle developing deep white matter changes. Mild increased caliber of the ventricular system which may reflect reduced edema or volume loss secondary to recent toxic metabolic insult. Thank you for letting us participate in the care of this patient. If you are a health care provider and have any questions regarding this report, please contact the number below. For patients who have questions please contact the health nursing care attendant that requested your imaging first. Electronically signed by: Bernadine Edward [facility] ([phone]), at 02/11/2022 5:54 PM XR Abdomen 1 view (Generic) (Exam End: 02/13/2022 8:10 AM) Impression No obstruction. No perforation. Thank you for letting us participate in the care of this patient. If you are a health care provider and have any questions regarding this report, please contact the number below. For patients who have questions please contact the health nursing care attendant that requested your imaging first. Electronically signed by: Mercedes Redding MD, [facility] ([phone]), at 02/13/2022 8:[address] Abdomen & Pelvis w Contrast (Exam End: 02/13/2022 3:36 PM) Impression 1. No evidence of deep intra-abdominal infection. 2. Status post coiling of the LEFT superior gluteal artery and LEFT lateral thigh fasciotomy. 3. Suspect incomplete clearing of the LEFT medial gluteal abscess. 4. Ill-defined, likely abscess involving the LEFT abductor jorge muscle 8 x 4.5 x 3.5 cm. MRI may be beneficial in further characterization. 5. Anasarca 6. RIGHT basilar pleural effusions and underlying airspace consolidations, atelectasis versus pneumonitis. Thank you for letting us participate in the care of this patient. If you are a health care provider and have any questions regarding this report, please contact the number below. For patients who have questions please contact the health nursing care attendant that requested your imaging first. Femur w Contrast Left (Exam End: 02/13/2022 3:36 PM) Impression 1. No evidence of deep intra-abdominal infection. 2. Status post coiling of the LEFT superior gluteal artery and LEFT lateral thigh fasciotomy. 3. Suspect incomplete clearing of the LEFT medial gluteal abscess. 4. Ill-defined, likely abscess involving the LEFT abductor jorge muscle 8 x 4.5 x 3.5 cm. MRI may be beneficial in further characterization. 5. Anasarca 6. RIGHT basilar pleural effusions and underlying airspace consolidations, atelectasis versus pneumonitis. Thank you for letting us participate in the care of this patient. If you are a health care provider and have any questions regarding this report, please contact the number below. For patients who have questions please contact the health nursing care attendant that requested your imaging first. Electronically signed by: Zander Hayes DO, [facility] ([phone]), at 02/13/2022 6:27 PM XR PICC Placement Over 5 Years with Imaging Guidance (IV Team) (Exam End: 03/03/2022 2:31 PM) Impression Right-sided PICC projects over the superior cavoatrial [...] who have questions please contact the health nursing care attendant that requested your imaging first. Electronically signed by: Danielle Figueroa MD, [facility] ([phone]), at 03/03/2022 2:49 PM Discharge Exam: Last value Range last 12 hrs Temperature Temp: 36.4 ??C (97.5 ??F) Temp: -- Heart Rate Heart Rate: (!) 118 Heart Rate: [118] Blood Pressure BP: 154/87 BP: (154)/(87) Respiratory Rate Resp: 16 Resp: [16] SpO2 SpO2: 97 % SpO2: [97 %] I/Os: I/O last 3 completed shifts: In: 5040 [P.O.:5040] Out: 25351 [Urine:41551] I/O this shift: In: - Out: 500 [Urine:500] Gen: AOx3, NAD, resting comfortably CVS: Regular rate and rhythm Resp: breathing comfortably on RA Abd: soft, non-tender, nondistended Ext:: LLE wound with dressing in place,??non-tender,??L forearm wound under dressing, non tender.??Incision: dressing c/d/i. No evidence of hematoma/seroma/infection Discharge Plans: Discharge to: Rehab Name of facility: [facility] Contact information: Dr. Rosa, VNA: No Discharge Conditions/Prognosis: Stable Discharge Medications: The following medications have been prescribed for you. If you notice any adverse reactions to your medications, please contact your primary care physician immediately or go to the nearest Emergency Department. In addition to these medications, you are being prescribed Suboxone 8mg BID. Please continue this medication at [facility]. Your Medications New Medications Dose Details acetaminophen 500 mg Tab Commonly known as: Tylenol Take 2 tablets by mouth every 8 hours. 1,000 mg Quantity: 30 tablet Refills: PRN ascorbic acid (Vitamin C) 250 mg Tab Commonly known as: Vitamin C Take 1 tablet by mouth daily. Start taking on: March 24, 2022 250 mg Quantity: 30 tablet Refills: PRN calcium carbonate 200 mg calcium (500 mg) Chew Commonly known as: Tums Take 1 tablet by mouth 3 times daily (with meals). 500 mg Refills: PRN docusate sodium 100 mg Cap Commonly known as: Colace Take 1 capsule by mouth 2 times daily for 10 days. 100 mg Quantity: 20 capsule Refills: PRN dronabinoL 10 mg Cap Commonly known as: Marinol Take 1 capsule by mouth 2 times daily for 7 days. 10 mg Quantity: 14 capsule Refills: 0 * HYDROmorphone 2 mg Tab Commonly known as: Dilaudid Take 1 tablet by mouth every 4 hours as needed for Pain (for moderate pain (4-6)). 2 mg Refills: 0 * HYDROmorphone 4 mg Tab Commonly known as: Dilaudid Take 1 tablet by mouth every 4 hours as needed for Pain (for severe pain (7-10)). 4 mg Refills: 0 vancomycin 125 mg Cap Commonly known as: Vancocin Take 1 capsule by mouth 4 times daily for 3 days. 125 mg Quantity: 12 capsule Refills: 0 * This list has 2 medication(s) that are the same as other medications prescribed for you. Read thedirections carefully, and ask your doctor or other care provider to review them with you. Continued medications, unchanged Dose Details EPINEPHrine 0.3 mg/0.3 mL Atin Inject 0.3 mL IM once as needed for allergic reaction (Throat tight, difficulty breathing). Call 911as directed. Quantity: 1 kit Refills: 0 triamcinolone 0.1 % Lotn Commonly known as: KENALOG Apply topically 3 times daily. Quantity: 60 mL Refills: 0 STOPPED Medications hydroCHLOROthiazide 25 mg Tab Commonly known as: Hydrodiuril lisinopriL 10 mg Tab Commonly known as: Zestril predniSONE 20 mg Tab Commonly known as: Deltasone Updated Allergies/ADRs: No Known Allergies Scheduled Appointments: No future appointments. Outpatient Services/Studies: Referral to Neurology Referral Priority: Routine Referral Type: Consultation Referral Reason: Consult, Test & Treat Number of Visits Requested: 1 Nerve conduction test Standing Status: Future Standing Exp. Date: 10/22/22 Question Response Notes [place] [facility] [place] Indication for study/signs & symptoms LLE numbness, weakness Instructions Given to Patient at Discharge:. An After Visit Summary was printed and given to the patient. Patient Instructions Discharge Instructions You were were admitted and treated for the following diagnosis: compartment syndrome CALL YOUR PHYSICIAN IF: 1. You have a fever greater than 101F 2. You have diarrhea or vomiting for >24 hours, or stop having bowel movements and passing flatus 3. You have worsening pain, not controlled with your pain medication. 4. You develop redness, swelling, or new drainage from your wounds Follow up: No future appointments. Narcotics: You may be given a prescription for a narcotic medication immediately following your surgery. Narcotics are prescribed for short-term (1-3 days) use to help treat your pain. Narcotics do not reduce inflammation and it is inflammation that is usually a major cause of pain after surgery. Narcotics have many side effects such as constipation, lightheadedness, dizziness, sedation, confusion, nausea and vomiting. Driving and the use of alcohol are not recommended while you are using narcotic pain medications. Non-steroidal anti-inflammatories (NSAIDS) such as aspirin, Aleve and ibuprofen (Advil, Motrin) are medications that reduce pain and inflammation. To reduce your chance of side effects, it is recommended that you use Tylenol as needed for pain andthen NSAIDs and use narcotics as the last resort. Alternative means of pain relief such as rest and relaxation, positioning, as well as decreasing stimulants such as coffee, tea, soft drinks, and nicotine may also help to alleviate pain. If you continue to experience significant pain 4-5 days after your discharge, it may be necessary michelle re-evaluated by your physician. Driving Restrictions: - No driving if you are too sore to enter or exit your vehicle comfortably, or if you are too sore to easily check your blind spot. No driving while using prescription pain medications Activities: - Discuss return to work or school with your provide at your follow up appointment in the trauma clinic. - Increase your activity slowly. If it hurts don't do it, but try again the following day. - You may tire easily, so frequent naps may be necessary.. - Talk with your doctor about when you can return to work or school. - You may take a shower but have someone nearby in case you need help. Diet: Eat a well-balanced diet. Fresh fruits, vegetables and fiber-containing foods are recommended. This will assist in wound healing. Recommendations: - Take it easy for two weeks. Remember, If it hurts, don't do it. - Take several slow, short walks each day for the first two weeks, and gradually increase your distance. We recommend at least 4 times a day. Wound Care: - You can shower per usual routine - Do not submerge wounds under water (avoid spas, pools and bathtubs) until fully healed. - Do not use creams, oils, or ointments on the wound. - See follow-up appointments for removal of sutures/angeles. Comfort: - Some soreness can be expected. - Take your pain medication as needed and prescribed. - Taper use of pain medication as pain lessens. Follow up appointments: 1. You will have follow-up appointments at [facility] [place] as indicated in the ???Future Appointments and Orders?? section of your discharge summary. If X-rays or CT scans have been ordered for you prior to thisappointment you will need to report to the Radiology department, desk 3T, 1 hour prior to your clinic appointment time. 2. If you do not have a scheduled follow-up appointment listed at the time of discharge, you will benotified of your scheduled appointment on the next business day. Please call [phone] if you do not hear from us by that time, as your timely follow-up is very important to us. Your care was managed by the Trauma and Acute Care Surgery Team at [facility]. If you have any questions or concerns, please feel free to contact us. Provider Contact Information: General Surgery[place] [facility] [place] business hours): CC: Compartment syndrome Primary Care Physician: None General Instructions Substance Use Treatment, Harm-Reduction, and Relapse Prevention Resources Residential Treatment: [facility] [address] [place], [place] [id number] [address] [address] Intensive Outpatient Programs: [facility] [address] [place], [place] [id number] Health Care and Rehabilitative Services [address] [place] [address] [phone] Individual Counseling: [facility] [address] [place] [address] ALEX Whitlock [address], [address] [place] [address] ----and---- [address] [place] [address] [facility] [address], [address] [place] [address] Offers EMDR Therapy You may also search www.psychologytoday.com or [employer] for therapists in your area. EMDR Therapy Eye Movement Desensitization and Reprocessing (EMDR) therapy is an extensively researched, effectivepsychotherapy method proven to help people recover from trauma and other distressing life experiences, including PTSD, anxiety, depression, and panic disorders. EMDR therapy does not require talking indetail about the distressing issue or completing homework between sessions. EMDR therapy, rather than focusing on changing the emotions, thoughts, or behaviors resulting from the distressing issue, allows the brain to resume its natural healing process. EMDR therapy is designed to resolve unprocessed traumatic memories in the brain. For many clients, EMDR therapy can be completed in fewer sessions than other psychotherapies. www.emdria.org/fdtlf-smby-vyvcwbq/ Medication Assisted Therapy: [facility] [address] [place] [address] [address] [facility] [address] [place] [address] [place] [address] [facility] [address] [place] [address] [place] [address] Peer Support Groups Alcoholics Anonymous (AA) [place]: , www.nhaa.net Narcotics Anonymous (NA) [place]: , www.ana.org Community Peer Support Center [facility] [address] [place], [place] Online AA and NA Meetings AA, NA, Refuge Recovery, SMART Recovery www.[employer] AA Video Meetings www.aa-intergroup.org/directory_audio-video.php AA Text Chat Meetings www.aa.intergroup.org/directory.php NA Video Meetings www.virtual-na.org/meetings NA Text Chat Meetings Www.neveraloneclub.org SMART Recovery Meetings via Zoom 5:00-6:00pm, free and open to all To join Zoom meetin. Visit www.[employer]te 2. Click on calendar on top of toolbar 3. Find the correct meeting date and time 4. Click the zoom link and enter password provided Additional Substance Use Treatment Resources Www.vtaddictionservices.org www.health[place].gov/alcohol-drugs www.qmypzpf707.org/ (Search for Substance Use) www.No.1 Traveller/ Www.rethinkingdrinking.niaaa.nih.gov/ www.[facility].gov/blnrjghorw-mhohemmc-rjknvjzzx/dfsljyuskqng-hymujvp-lvmf/treatment -practitioner-pleat patternmaker Mental Health Crisis [place] [facility] Crisis Line: Dial 988 www.[facility].gov/find-help/988 Harm-Reduction Resources Mobile operations. For more information about receiving supplies: including syringe exchange, fentanyl test strips, and naloxone, or to schedule an appointment: [place] clients call and leave a message for Graciela (ext. [phone]) or Doc Liu (ext. [phone]). [place] clients call to speak with Doc Choi Suboxone Emergency Override There is an emergency override requirement on all medications that require prior insurance authorization. If you experience any issues picking up your suboxone prescription at the pharmacy you may request an override. They are required to provide the quantity of suboxone sufficient for 72 hours while the prior insurance authorization is being approved. Online Stress Reduction Resources www.[employer]/videos-features/videos/riofrvpxf-cepvfpdia-6-7-8-breath/ www.AP[employer]A [employer]AGS.org/2013/izrfadkux-mmpgolnzt-qdjudsw-moment/ www.headspace.[employer]/ www.mindful.org/ www.freeFidusNetdfMeizuness.org/ Employment Agency [employer] [address] [place] [id number] secondchances@[employer] Providing an opportunity for successful employment and recovery by empowering individuals to manage challenges because of substance use addiction and past convictions. CC: Compartment Syndrome Signed: Vance Curiel MD PGY1 Acute Care Surgery Team Pager [phone] 03/23/2022 4:18 PM I saw and evaluated the patient with Dr. Curiel (resident). I have independently reviewed the relevant laboratory and radiographic studies. I have edited the above note and agree with the details as written. My physical examination confirms the resident's findings. The assessment and plan were formulated in discussion with me at the time of the visit and I agree with them as documented. Jayme Armstrong MD Jayme Armstrong MD - 03/05/2022 5:36 PM EDT Surgery Service Wound Vac Change Note ID: Alix Holland ( ) Wound Vac Change #1 Wound Location: LUE Wound Dimensions: 7cm W x 21cm L x 2mm D Procedure: 0.4 mg IV Dilaudid was given prior to the procedure for pain and anxiolysis. An additional 5cc lidocaine was administered for pain. The wound vac change was performed at the bedside. Healthy granulation tissue was found in wound. 1 wound vac sponge was removed and 1 new vac sponge was placed with good approximation and good seal. The patient tolerated the procedure well w/o need for additional pain medication. Wound Vac Change #2 Wound Location: LLE Wound Dimensions: 10cm W x 34cm L x 2cm D. 4cm of tunneling at 2:00 o' clock. Procedure: Procedure completed in the same setting of the LUE vac change in which 0.4 mg IV Dilaudidwas delivered. Similarly, the LLE wound vac change was performed at beside. Healthy granulation tissue was found in the wound. 2 wound vac sponges were removed. The sponge from the tunneled portion wasremoved with a prolene suture intact at the distal end. 3 new vac sponges were placed with good approximation and good seal. For the tunneled portion, the sponge was tagged with a prolene suture at theproximal and posterior end. The patient tolerated the procedure well w/o need for additional pain medication. Norbert Vega 03/05/2022 A medical student assisted me in the documentation of this note. I personally saw and evaluated the patient, reviewed all applicable documented studies, and diagnostic images. The assessment and plan were formulated with the care team at the time of the visit and in my presence. I have made edits to the above note and agree with the details above. Sixto Medina MD PGY-1, General Surgery 03/05/22 documented in this encounter Discharge Instructions Discharge InstructionsMiguel Prather, LEVELER HELPER - 02/12/2022 3:40 PM EDT Substance Use Treatment, Harm-Reduction, and Relapse Prevention Resources Residential Treatment: [facility] [address] [place], [place] [id number] [facility] [address] [place], [place] [id number] Intensive Outpatient Programs: [facility] [address] [facility] [address] [place], [place] [id number] Health Care and Rehabilitative Services [address] [place] [address] [phone] Individual Counseling: [facility] [address] [place], [place] [address] ALEX Whitlock [address] [facility] [address] [place] [address] ----and---- [address] [place], [place] [address] [facility] [address], [address] [place], [place] [id number] Offers EMDR Therapy You may also search www.psychologytoday.com or Streamcore System for therapists in your area. EMDR Therapy Eye Movement Desensitization and Reprocessing (EMDR) therapy is an extensively researched, effectivepsychotherapy method proven to help people recover from trauma and other distressing life experiences, including PTSD, anxiety, depression, and panic disorders. EMDR therapy does not require talking indetail about the distressing issue or completing homework between sessions. EMDR therapy, rather than focusing on changing the emotions, thoughts, or behaviors resulting from the distressing issue, allows the brain to resume its natural healing process. EMDR therapy is designed to resolve unprocessed traumatic memories in the brain. For many clients, EMDR therapy can be completed in fewer sessions than other psychotherapies. www.emdria.org/rxcxu-xpvy-dtjksbw/ Medication Assisted Therapy: [facility] [address] [place] [address] [phone] [place] [address] [facility] [address] [place] [address] [place] [address] [facility] [address] [place] [address] [place] [address] Peer Support Groups Alcoholics Anonymous (AA) [place]: , www.nhaa.net Narcotics Anonymous (NA) [place]: , www.gmana.org Community Peer Support Center [facility] [address] [place], [place] Online AA and NA Meetings AA, NA, Refuge Recovery, SMART Recovery www.Hupu AA Video Meetings www.aaOrbsterintergroup.org/directory_audio-video.php AA Text Chat Meetings www.aaBrightstormintergroup.org/directory.php NA Video Meetings www.Argo Navis Consultingna.org/meetings NA Text Chat Meetings Www.Glory Medicalaloneclub.org SMART Recovery Meetings via Zoom 5:00-6:00pm, free and open to all To join Zoom meeting: Visit www.LaFourchette Click on calendar on top of toolbar Find the correct meeting date and time Click the zoom link and enter password provided Additional Substance Use Treatment Resources Www.vtaddictionservices.org www.health[place]mont.gov/alcohol-drugs www.[place] [address].org/ (Search for Substance Use) www.Singular.ProThera Biologics/ Www.rethinkingdrinking.niaaa.nih.gov/ www.samhsa.gov/ofeknfgpaz-bapucsrr-iuepiywez/furmbhdcxwos-lfasbfb-ihjz/treatment -practitioner-pleat patternmaker Mental Health Crisis National Mental [facility] Crisis Line: Dial 988 www.samhsa.gov/find-help/988 Harm-Reduction Resources Cardiac Dimensions. For more information about receiving supplies: including syringe exchange, fentanyl test strips, and naloxone, or to schedule an appointment: [place] clients call and leave a message for Graciela (ext. [phone]) or Doc Liu (ext. [phone]). [place] clients call to speak with Doc F. Suboxone Emergency Override There is an emergency override requirement on all medications that require prior insurance authorization. If you experience any issues picking up your suboxone prescription at the pharmacy you may request an override. They are required to provide the quantity of suboxone sufficient for 72 hours while the prior insurance authorization is being approved. Online Stress Reduction Resources www.Radico.ProThera Biologics/videos-features/videos/bwkiycycw-oblnimdjj-3-7-8-breath/ www.APERA BAGS.org/2013/mqjllfnbh-tmhbwgqbl-pwanygk-moment/ www.Mondokio/ www.mindful.org/ www.slinkset.org/ Employment Agency [employer] [place] [address] secondCuilncOptrace@Tr[employer] Providing an opportunity for successful employment and recovery by empowering individuals to manage challenges because of substance use addiction and past convictions. Patient InstructionsSchultJose zabala MD - 03/22/2022 3:34 PM EDT Discharge Instructions You were were admitted and treated for the following diagnosis: compartment syndrome CALL YOUR PHYSICIAN IF: You have a fever greater than 101F You have diarrhea or vomiting for >24 hours, or stop having bowel movements and passing flatus You have worsening pain, not controlled with your pain medication. You develop redness, swelling, or new drainage from your wounds Follow up: No future appointments. Narcotics: You may be given a prescription for a narcotic medication immediately following your surgery. Narcotics are prescribed for short-term (1-3 days) use to help treat your pain. Narcotics do not reduce inflammation and it is inflammation that is usually a major cause of pain after surgery. Narcotics have many side effects such as constipation, lightheadedness, dizziness, sedation, confusion, nausea and vomiting. Driving and the use of alcohol are not recommended while you are using narcotic pain medications. Non-steroidal anti-inflammatories (NSAIDS) such as aspirin, Aleve and ibuprofen (Advil, Motrin) are medications that reduce pain and inflammation. To reduce your chance of side effects, it is recommended that you use Tylenol as needed for pain andthen NSAIDs and use narcotics as the last resort. Alternative means of pain relief such as rest and relaxation, positioning, as well as decreasing stimulants such as coffee, tea, soft drinks, and nicotine may also help to alleviate pain. If you continue to experience significant pain 4-5 days after your discharge, it may be necessary michelle re-evaluated by your physician. Driving Restrictions: - No driving if you are too sore to enter or exit your vehicle comfortably, or if you are too sore to easily check your blind spot. No driving while using prescription pain medications Activities: - Discuss return to work or school with your provide at your follow up appointment in the trauma clinic. - Increase your activity slowly. If it hurts don't do it, but try again the following day. - You may tire easily, so frequent naps may be necessary.. - Talk with your doctor about when you can return to work or school. - You may take a shower but have someone nearby in case you need help. Diet: Eat a well-balanced diet. Fresh fruits, vegetables and fiber-containing foods are recommended. This will assist in wound healing. Recommendations: - Take it easy for two weeks. Remember, If it hurts, don't do it. - Take several slow, short walks each day for the first two weeks, and gradually increase your distance. We recommend at least 4 times a day. Wound Care: - You can shower per usual routine - Do not submerge wounds under water (avoid spas, pools and bathtubs) until fully healed. - Do not use creams, oils, or ointments on the wound. - See follow-up appointments for removal of sutures/angeles. Comfort: - Some soreness can be expected. - Take your pain medication as needed and prescribed. - Taper use of pain medication as pain lessens. Follow up appointments: 1. You will have [place] appointments at [facility] as indicated in the ???Future Appointments and Orders?? section of your discharge summary. If X-rays or CT scans have been ordered for you prior to thisappointment you will need to report to the Radiology department, desk 3T, 1 hour prior to your clinic appointment time. 2. If you do not have a scheduled follow-up appointment listed at the time of discharge, you will benotified of your scheduled appointment on the next day. Please call [phone] if you do not hear from us by that time, as your timely follow-up is very important to us. Your care was managed by the Trauma and Acute Care Surgery Team at [facility]. If you have any questions or concerns, please feel free to contact us. Provider Contact Information: General Surgery: [facility] (after business hours): CC: Compartment syndrome Primary Care Physician: None AttachmentsThe following attachments cannot be sent through Care Everywhere. Compartment Syndrome (Djiboutian)documented in this encounter Medications at Time of Discharge [...] 3 days. documented as of this encounter Progress Notes Corina Zabala RN - 03/23/2022 3:13 PM EDT [facility] Report given to ÁNGEL Roland. Ambulance arrived 1430 to transport pt. Piccremains in place. Hernán Hobbs - 03/23/2022 2:11 PM EDT Office of Care Management/Jacquard Loom Heddles Tier Patient Name: Alix Holland : 1990 Patient has been offered an Acute IRF bed at [facility]. [facility] arranged for a BLS transport at 1430. Ambulance will need: Medicare ambulance form completed and signed (MD or Folder Seamer Automatic RN/CONTROL AREA OPERATOR) Copy of patient demographics [place] Out [facility] Hospital DNR/DNI order, if active MD to MD report to Dr. Rosa at [phone]. Please call Nursing Report to [phone], ask for washer blanket. Info to accompany patient: Copies of Medication Administration Records and IV sheets for past 10 days. Plan: Jacquard Loom Heddles Tier will be available to the patient and Folder Seamer Automatic-RN and/or Staff Assistant for further assistance. Patient will be discharged to: [place] [id number] Hernán Hobbs Jacquard Loom Heddles Tier Sivakumar Trevino PTA - 03/23/2022 1:25 PM EDT Physical Therapy Note Treatment Number PT: 9 Patient profile: Alix Holland is a 31 y.o.??gentleman admitted to the MICU on 01/23/22 after being found down and encephalopathic by family with verbal reports of Fentanyl ingestion; this was followedby witnessed in-hospital [place] cardiac arrest at the receiving ED (hyperkalemia at the time). He was also noted to have severe rhabdomyolysis with compartment syndrome and resultant ALTHEA. Now s/p??fasciotomies of L thigh, calf forearm and wrist (01/23) and??I+D LUE, LLE (01/26). Previously completed treatment??for aspiration pneumonia versus MSSA CAP. He was also found to have asymptomatic COVID19 infection in admission testing. Scattered punctate infarcts on MR brain and CT COW/carotids from 01/24/22 readas normal.??Neurology believes??MRI findings are related to toxometabolic issues rather than a stroke.??Extubated PM of 01/26/22??and remains on room air. Interval History: Per Gen Surg note 03/23/22: ?? No complaints this morning ?? LUE no tingling but remaining in LLE Social History: Home setup: Pt lives with his father in a two level home with a couple BERNADETTE. Pt's bedroom and bathroom are on the first floor. The bathroom has a tub shower. 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 Enjoys hunting and fishing. DME: none Precautions/Special Considerations: fall risk Mobility and Positioning Recommendations: ?? Stand step transfer with 1 assist and FWW ?? Encourage transfers to commode vs bedpan for toileting ?? Please encourage up to chair or bed chair position throughout the day as able. Subjective: I don't think I can walk very far. Objective: Patient seen for physical therapy and demonstrated the following: Pain: C/o moderate L knee pain with L knee flexion Vitals: HR in the 120s throughout session with activity Bed mobility: Supine>Short Sitting: HOB elevated ~30*. Was able to adduct the L hip to the EOB, then use the RLE to carry it the rest of the way to the floor. CGA Transfers: Sit<>Stand: Naye with FWW and gait belt, requires BUE use on armrests to stand Gait: Distance: 3'+3' Level of Assist: Naye Assistive Device: FWW Gait Mechanics: Tends to lean posteriorly to advance the LLE, poor eccentric control and foot placement. hip hiking to advance the LLE with nearly absent heel strike and significiant foot drop. Hyperextending the L knee and ligament hanging during stance phase of the LLE. Therapeutic Exercise: Sit<>stand x10 with ht of bed elevated x10 Nustep x8 min, resistance level 4 Balance: Seated Static: Supervision Seated Dyn: Got dressed at EOB. Required modA with LB dressing Standing Static: Good with FWW Dyn: Fair ?? Education: patient has been educated on Bed mobility, Positioning, Safety, Precautions/protocol, Role of therapy and Discharge planning and verbalizes understanding but will benefit from ongoing reinforcement. Pt's father present for majority of session Patient status, treatment, and mobility recommendations discussed with nursing. Pt left supine in bed with call starks within reach, all needs met and family present following visit. Assessment: Pt seen today for physical therapy treatment per POC. Pt presented to physical therapy without c/o pain and willing to participate. Today's session focusing on gait training and therapeuticexercise. Pt continues to demonstrate multiple gait deviations associated with LLE weakness. Pt tolerated more exercise today. Pt's supportive father present for session. Pt has a good support system for his eventual discharge home. Pt will benefit from ongoing physical therapy to address the above impairments and facilitate return to PLOF. Discharge Recommendations: Based on the current findings, Anticipated Discharge Disposition (PT): acute rehabilitation facilitywhen medically ready for hospital discharge. Consult Recommendations: No other consults recommended at this time. Equipment needs: TBD, anticipate d/c to rehab Physical Therapy Goals: To be achieved by 02/19/22: ?? 1. Pt. to demonstrate knowledge of safety limitations and precautions and will appropriately requestassistance for functional activities and to mobilize. Met 2. Pt. to demonstrate understanding of appropriate exercises. Met 3. Pt. to perform bed mobility with supervision using bed features or adaptive equipment as needed. Met 4. Pt. to perform sit to stand and stand pivot transfers with min A using a front wheeled walker. ONGOING 5. Pt. to ambulate 25 feet with min A using a front wheeled walker. ONGOING 6. Pt will stand with UE support and min A x2 minutes while participating in functional tasks. ONGOING 7. Pt to propel wheelchair x 50 ft. using R UE/LE with supervision. ONGOING 8. Pt will tolerate progression towards upright with stable vital signs. ONGOING Plan: Therapy Frequency (PT): 2-4 times/wk for therapy including balance training, bed mobility training, gait training, patient/family education, strengthening, transfer training and wheelchair managment/propulsion training. Total Minutes, Physical Therapy: 55 ([phone]) Billing Code: TESx2, TEFx2 Sivakumar TrevinoSVETLANA Pager: [phone] Physical Therapy Inpatient Rehabilitation Department Lizzy Love RN - 03/23/2022 12:41 PM EDT Physician Certification Statement for Non-Emergency Ambulance Services Section I - General Information Alix Holland 1990 Medicaid Number:[id number] Transport Date: 03/23/2022 (PCS is valid for round trips on this date and for all repetitive trips in the 60-day range as notedbelow.) [place] [facility] Destination[place] [facility] Acute Rehabilitation and Sub-Acute (Swing) Rehab Levels of Care [address] [place] [address] Is the patient's stay covered under Medicare Part A (PPS/DRG)?: No Closest appropriate facility? Yes Transfer Type: Acute to Acute Rehab Section II - Medical Necessity Questionnaire Ambulance Transportation is medically necessary only if other means of transport are contraindicatedor would be potentially harmful to the patient. To meet this requirement, the patient must be eitherbed confined or suffer from a condition such that transport by means other than ambulance is contraindicated by the patient's condition. The following questions must be answered by the medical professional signing below for this form to be valid: 1) Describe the MEDICAL CONDITION (physical and/or mental) of this patient AT THE TIME OF AMBULANCE TRANSPORT that requires the patient to be transported in an ambulance and why transport by other means is contraindicated by the patient's condition: LUE, LLE compartment syndrome 2) Is the patient bed confined as defined below? No To be bed confined the patient must satisfy all three of the following conditions: - unable to get up from bed without assistance AND unable to ambulate AND unable to sit in a chair or wheelchair. 3) Can this patient safely be transported by car or wheelchair van (i.e. seated during transport, without er medical technician or monitoring?): No 4) In addition to complete questions 1-3 above, please select any of the following conditions that apply: *Note: supporting documentation for any boxes checked must be maintained in the patient's medical records Moderate/severe pain on movement, requiring attendant, unable to tolerate ride in sitting position Section III - Signature of Physician or Healthcare Professional I certify that the above information is true and correct based on my evaluation of this patient, andrepresent that the patient requires transport by ambulance and that other forms of transport are contraindicated. I understand that this information will be used by the Centers of Medicare and MedicaidServices ([facility]) to support the determination of medical necessity for ambulance services, and I represent that I have personal knowledge of the patient's condition at the time of transport. Lizzy Love RN 03/23/22 Form was electronically signed and dated by the patient's Physician or Healthcare Professional *Form must be signed only by patient's attending physician for scheduled, repetitive transports. Fornon-repetitive, unscheduled ambulance transports, when unable to obtain the signature of the attending physician, this form was signed by Registered Nurse Jose Gomez MD - 03/23/2022 11:08 AM EDT ID/MECHANISM OF INJURY: Alix Holland is a 31 y.o. 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 Now S/p L. Thigh fasciotomy, L. Buttock fasciotomy, and L. Forearm fasciotomy With hematoma washout and skin grafting of LUE and LLE from R. Sided donor site OR CASE INFORMATION: 01/23: L thigh fasciotomy, L lower leg fasciotomy, L buttock fasciotomy, L forearm fasciotomy 01/26: Debridements and wound vac change 01/29: Debridement of fasciotomies, closure of L lower leg fasciotomy, closure of dorsal forearm fasciotomy, partial closure L thigh fasciotomy 01/31, 02/02, 02/04, 02/05: Debridement and wound vac change 02/06:??IR embolization of SGA pseudoaneurysm 02/06:??LLE hematoma evacuation and washout 02/08, 02/09, 02/11, 02/13, 02/15, 02/19, 02/22, 02/24, 02/26, 03/01, 03/03: washout and vac change, LLE and LUE 03/10: OR for skin grafting of LUE and LLE from R-sided donor site 03/13, 03/15: OR??for skin graft dressing change for LUE and LLE FOLLOW-UP NEEDED: Does pt need to f-u with surgeon or DAY WORKER (please indicate reason if attending provider): Attending Surgeon How soon should ACS f/u be? 2-4 weeks Does patient need imaging prior to ACS f/u? No Are CT/MRI Safety questions complete (if needed)? No Does patient have angeles/sutures? When should they be removed? What service is responsible? No Does patient need labs with TACS f/u? No Follow-up with other services? Yes neurology Advise of Service and needs. For LLE weakness and numbness Imaging orders entered: No Radiology Safety questions done for MRI/CT? N/A New or current ostomy? Ostomy nurse shared visit No Mobility concerns: Fully ambulatory w/ some LLE weakness Wound vac (requires 60min clinic visit) No On vent? If Yes - Needs to have someone from facility and supplies. No On Dialysis: No INCIDENTAL FINDINGS Incidental Findings (yes/no): No OPIOID CONSENT/NARCOTIC AGREEMENTS Current Month Narcotic Consent? Yes Isolation No Isolation D/c to: Rehab If Rehab - Rehab Name: [facility] PCP Name: None Jose Gomez MD 03/23/2022 Kaylah Jang, RD - 03/23/2022 8:46 AM EDT Nutrition Progress Note Alix Crooks or SEE is a 31 y.o. male ??with history of polysubstance abuse currently admitted for fentanyl OD with LUE and LLE compartment syndrome s/p L forearm, L thigh/buttock and L lower leg fasciotomies, rhabdomyolysis, ARF and hyperkalemic [place] arrest (on CVVH) with recurrent L thigh fasciotomy wound bleeding and hemorrhagic shock now 3 days s/p IR embolization of L circumflex iliac artery, Left internal iliac gluteal arterial branches, and left superior gluteal artery via R CUT OFF [employer]WYER [employer]INGLE MILL access. Reason for intervention: Follow up Nutrition Recommendations: Regular diet ; enc high protein high calorie Limit NPO to periods to only when necessary to avoid missing nutrition windows Encourage pt to continue double portions protein and milk with meals Active Orders Diet Regular diet Frequency: Effective Now Number of Occurrences: Until Specified Nourishments Adult diet Oral Supplements Other; Ensure Compact Frequency: Effective Now Number of Occurrences: Until Specified Lab Results Component Value Date NA 139 03/23/2022 K 4.1 03/23/2022 CL 101 03/23/2022 CO2 25 03/23/2022 BUN 15 03/23/2022 CREATININE 0.55 (L) 03/23/2022 ESTGFR 137 03/23/2022 MAGNESIUM 0.75 03/20/2022 CALCIUM 9.6 03/23/2022 PHOS 3.8 03/20/2022 AST 21 02/05/2022 ALT <5 02/05/2022 ALKPHOS 74 02/05/2022 BILITOT 0.4 02/05/2022 BILIDIR 0.3 02/05/2022 TRIG 359 01/26/2022 CRP <3.0 04/26/2021 [id number] 535 02/03/2022 25OHVITD 12 (L) 02/19/2022 SFOLATE 3.9 (L) 02/03/2022 IRON 21 (L) 03/01/2022 No results found for: POCGLU Skin Status: Shift Pressure Injury Prevention Occiput: No Injury Thoracic Spine: No Injury Sacral: Redness, Blanchable Ischial - left: No Injury Ischial - right: No Injury Heel - left: No Injury Heel - right: No Injury Elbow - left: No Injury Elbow - right: No Injury Device Sites: O2 sat monitor, IV sites Other Sites: PICC Relevant medications: Marinol, Vitamin B1, folic acid, thiamine, Thera M, Vitamin C, TUMs Last Bowel Movement: 03/22/22 Admit Weight: 101.8 kg Estimated body mass index is 22.15 kg/m?? as calculated from the following: Height as of this encounter: 188 cm (6' 2). Weight as of this encounter: 78.2 kg (172 lb 8 oz). [place] Body Weight: 80.9kg- [place] Usual Body Weight: Pt reports 220-225 lb ( 100-102 kg) Wt Readings from Last 10 Encounters: 03/22/22 78.2 kg (172 lb 8 oz) 04/28/21 98.1 kg (216 lb 4.3 oz) 02/22/19 108.9 kg (240 lb) 05/03/18 113.4 kg (250 lb) 04/27/13 90.7 kg (200 lb) Patient Vitals for the past 168 hrs: Weight 03/22/22 0645 78.2 kg (172 lb 8 oz) 03/20/22 1327 73.6 kg (162 lb 4.1 oz) 03/19/22 1717 74.3 kg (163 lb 14.4 oz) Assessment: Based on IBW 80.9kg Estimated needs: Calories: 5925-0032 (25-30kcal/kg) Protein: 120 grams (1.5 g/kg IBW) Nutrition Focused Physical Exam (NFPE): Performed on 03/01/22. Subcutaneous fat loss at Orbital region: Moderate Upper arm region (triceps/biceps): Mild Thoracic and lumbar region (ribs, lower back and maxillary line): Not assessed Lean muscle loss to Hoahaoism region (temporalis muscle): Moderate Clavicle bone region (pectoralis major): None present Dorsal hand (interosseous muscle): None present Shoulder (deltoid): Mild Scapular bone region (latissimus dorsi, trapezius muscles): Not assessed Thigh region (quadriceps muscle): Mild Posterior calf region (gastrocnemius muscle): Not assessed- in wraps Fluid accumulation: Not assessed- Nutrition intake and intake history/Interview: 03/23/22: Wt continues as stable; pt ordering to meet/exceed estimated needs and eating well. TUMs were added as phos binders; phos currently wnl. 03/16/22: Pt continue t miss many meals per week but vacs are of now so hopeful for fewer missed meals. Pt with elevated serum phos so low phos diet added which limits his ability to order protein rich foods. Give limited intake, suggest adding TUMs at meals and allow pt to order phosphorus rich foods.Pt seen at lunch eating well. Wt has been stable X 10 days. Continue to encourage protein intake 2/2 skin grafts. 03/08/22:Max is resting in bed, he did not eat his lunch today, but reports a good appetite and intakes and just did not care for his lunch today, declines offer and encouragement for any other items. His orders in past few days are adequate to meet his estimated needs. Encourage continued ordering thisway, again endorsed importance of good nutrition. Protein-calorie Malnutrition: < or equal to 50% of estimated energy requirement for > or equalto 5 days and >2% weight loss in 1 week is consistent with severe protein-calorie malnutrition inthe setting of acute illness or injury (Nelia JPPARTH J Parenteral Enteral Nutr. 2011; 36(3): 273-83) Nutrition to continue to follow up while inpatient THANKS KAYLAH JANG RD Pager #:[phone] Josh Peck RN - 03/22/2022 6:30 PM EDT Illness Severity [x] Stable [] Watcher [] Unstable Patient Summary Reason for admission: 01/23 s/p cardiac arrest w/ ROSC, likely due to hyperkalemia; incidentally found to be COVID-positive. Rhabdo; ALTHEA on CRRT (01/23, 01/30 to PM shift, iHD ?02/02); LUE, LLE compartment syndrome s/p fasciotimies, I+D 01/23/22, 01/26/22, I&D w/ partial closure 01/29/22 Relevant PMH: hypertension, angioedema requiring intubation (unclear trigger), GERD, gastritis, esophagitis, and urachal cyst s/p I&D, and polysubstance use (including EtOH, cocaine, heroin) Significant 24 hour events: Alix went to the OR around 2100. PRN Oxycodone 15mg given for 10/10 pain on the left leg and left arm. Wound VAC on both LUE and LLE are holding suction. +doppler signals on bilateral pedal pulses. Voiding in adequate amounts. Prevalon boots on. 03/21/22 am patient able to go outside with father x 2 today. Pain managed with dilaudid 4-6 mg with good effect. Oxycodone dc'd. Left arm and leg swollen in tamie wrap. Cdi. 2 assist with FWW to stand pivot to wheel chair . + PP. LS diminished clear RA. Good appetite. Voids adequate urine output. Skin graft right thigh cdi. 03/22/22 AM patient aox4, took shower today tolerated well, returned to room where left arm and leg dressings changed. Left arm healing well, incisions well approximated pink, no drainage. aquafor applied generously ,Gauze and tamie wrapped. Left hip tunneled wet gauze applied. aquafor and gauze wrapped with tamie wrap. Bilateral feet creamed generously. Skin thick and peeling off. Some areas able to delicately remove with scissors. oob to wheel chair outside x 2 with dad. Dad is very supportive . Plan for rehab as soon as bed available. Action List Pain management. Reposition q2hrs. Discharge planning Wound care aquafor to bilateral bottom of feet . Situational Awareness & Contingency Planning Synthesis (Verbal Only) Jayme Armstrong MD - 03/22/2022 5:29 AM EDT General Surgery Resident Inpatient Progress Note ID: Alix Holland is a 31 y.o. 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 Procedures: 01/23: L thigh fasciotomy, L lower leg fasciotomy, L buttock fasciotomy, L forearm fasciotomy 01/26: Debridements and wound vac change 01/29: Debridement of fasciotomies, closure of L lower leg fasciotomy, closure of dorsal forearm fasciotomy, partial closure L thigh fasciotomy 01/31, 02/02, 02/04, 02/05: Debridement and wound vac change 02/06: IR embolization of SGA pseudoaneurysm 02/06: LLE hematoma evacuation and washout 02/08, 02/09, 02/11, 02/13, 02/15, 02/19, 02/22, 02/24, 02/26, 03/01, 03/03: washout and vac change, LLE and LUE 03/10: OR for skin grafting of LUE and LLE from R-sided donor site 03/13, 03/15: OR for skin graft dressing change for LUE and LLE 24hr events: ?? No complaints this morning ?? LUE no tingling but remaining in LLE O: Last value Range last 24hrs Temperature Temp: 37.4 ??C (99.3 ??F) Temp: [37 ??C (98.6 ??F)-37.4 ??C (99.3 ??F)] Heart Rate Heart Rate: (!) 114 Heart Rate: -- Blood Pressure BP: (!) 144/99 BP: (133-151)/(88-103) Respiratory Rate Resp: 20 Resp: [17-20] SpO2 SpO2: 96 % SpO2: [96 %-98 %] 03/21 0701 - 03/22 0700 In: 2840 [P.O.:2840] Out: 6450 [Urine:6450] Physical Exam: General: NAD, resting comfortably, pleasant, conversant HEENT: PERRL, anicteric sclerae CVS: tachycardic on monitor Pulm: Breathing comfortably on room air Abd: soft, non-distended, nontender Skin: warm, dry Ext: Left upper extremity tamie wrap in place, still some limited mobility in finger extension, left lower extremity tamie wrap in place, tender to palpation, right thigh skin donor site open to air and healing appropriately Neuro: CN 2-12 grossly intact, nonfocal,moving all four extremities spontaneously Recent Labs 03/22/22 0415 WBC 9.0 HGB 9.5* HCT 28.0* PLATELET 248 Recent Labs 03/22/22 0415 03/20/22 1227 03/20/22 1200 NA 137 140 -- K 4.0 4.3 -- CL 100 104 -- CO2 24 23 -- BUN 16 13 -- CREATININE 0.52* 0.67* -- GLUCOSE 98 94 -- CALCIUM 9.6 9.6 -- MAGNESIUM -- -- 0.75 PHOS -- -- 3.8 NEW IMAGING: ?? None new MICRO: 03/05: left thigh wound, MRSA, Pseudomonas ASSESSMENT: Alix Holland is a 31 y.o. 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 He has had multiple returns to the operating room for his left upper extremity and lower extremity fasciotomy sites which have subsequently under gone skin grafting with 100% take from right thigh. This wound was colonized with pseudomonas for which he finished antibiotics for yesterday. He will continue on abx for C diff ppx till 03/26. Medically ready for discharge. BMP within normal limits yesterday. Tried to organize d/c today but difficulty obtaining soboxone prescription. Bed available at [facility]. Dressing changes today by nursing. Neuro consulted and they will conduct EMG outpatient reccs refferal for LLE numbness. PLAN: NEURO: Pain control: tylenol, suboxone initiated 03/18, marinol, dilaudid 4-6mg, CV: amlodipine PULM: IS, OOB GI: Regular diet, bowel regimen : voiding independently FEK: HLIVF, vitamin C, tums, Vit D2, folic acid, multivitamin, thiamine ID: S/p treatment for C diff, vancomycin and meropenum ended 03/19 , c diff ppx vancomycin po (03/17-03/26) HEME: SQH, SCDs MSK: left upper and lower extremity wounds dressed with Aquaphor, kerlix and tamie wrap, wet to dry inopen area of left lower extremity ENDO: none PROPHYLAXIS: SQH, SCDs DISPO: floor status, full code Jose Gomez MD PGY1 Acute Care Surgery pager [phone] I saw and evaluated the patient with Dr. Gomez (resident). I have independently reviewed the relevant laboratory and radiographic studies. I have edited the above note and agree with the details as written. My physical examination confirms the resident's findings. The assessment and plan were form ulated in discussion with me at the time of the visit and I agree with them as documented. Jayme Armstrong MD Hernán Carlos RN - 03/22/2022 4:57 AM EDT OUTCOME EVALUATION NOTE: OUTCOME SUMMARY: Patient AOx4 VSS on RA. Patient pain 8-10/10 being managed with scheduled and PRN, patient notes 8/10 is baseline. Patient awake most of night, struggled to rest. Patient changes position/shifts weightindependently. PLAN MOVING FORWARD: Continue to monitor Work with PT/OT Manage pain INDIVIDUALIZED FALL PREVENTION INTERVENTIONS: Patient-specific fall risk factors per assessment: [current deficits]: Generalized weakness, LLE weakness, IV sites Assistance [level of assistance required for transfers and ambulation]: 2 assist w/FWW and gait belt Supervision [direct monitoring required during toileting and ADLs]: Urinal and 2 assist stand pivot to commode Surveillance [continuous indirect monitoring]: Purposeful rounding, room near unit station, call starks in reach Patient-specific fall prevention interventions for sensory deficits provided, if applicable: yes CARE PLAN GOAL OUTCOME EVALUATION: Ongoing Josh Peck RN - 03/21/2022 6:40 PM EDT Illness Severity [x] Stable [] Watcher [] Unstable Patient Summary Reason for admission: 01/23 s/p cardiac arrest w/ ROSC, likely due to hyperkalemia; incidentally found to be COVID-positive. Rhabdo; ALTHEA on CRRT (01/23, 01/30 to PM shift, iHD ?02/02); LUE, LLE compartment syndrome s/p fasciotimies, I+D 01/23/22, 01/26/22, I&D w/ partial closure 01/29/22 Relevant PMH: hypertension, angioedema requiring intubation (unclear trigger), GERD, gastritis, esophagitis, and urachal cyst s/p I&D, and polysubstance use (including EtOH, cocaine, heroin) Significant 24 hour events: Alix went to the OR around 2100. PRN Oxycodone 15mg given for 10/10 pain on the left leg and left arm. Wound VAC on both LUE and LLE are holding suction. +doppler signals on bilateral pedal pulses. Voiding in adequate amounts. Prevalon boots on. 03/21/22 am patient able to go outside with father x 2 today. Pain managed with dilaudid 4-6 mg with good effect. Oxycodone dc'd. Left arm and leg swollen in tamie wrap. Cdi. 2 assist with FWW to stand pivot to wheel chair . + PP. LS diminished clear RA. Good appetite. Voids adequate urine output. Skin graft right thigh cdi. Action List Pain management. Reposition q2hrs. Discharge planning Wound care Situational Awareness & Contingency Planning Synthesis (Verbal Only) Jeanette Chatterjee MD - 03/21/2022 12:19 PM EDT General Surgery Resident Inpatient Progress Note ID: Alix Holland is a 31 y.o. 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 Procedures: 01/23: L thigh fasciotomy, L lower leg fasciotomy, L buttock fasciotomy, L forearm fasciotomy 01/26: Debridements and wound vac change 01/29: Debridement of fasciotomies, closure of L lower leg fasciotomy, closure of dorsal forearm fasciotomy, partial closure L thigh fasciotomy 01/31, 02/02, 02/04, 02/05: Debridement and wound vac change 02/06:??IR embolization of SGA pseudoaneurysm 02/06:??LLE hematoma evacuation and washout 02/08, 02/09, 02/11, 02/13, 02/15, 02/19, 02/22, 02/24, 02/26, 03/01, 03/03: washout and vac change, LLE and LUE 03/10: OR for skin grafting of LUE and LLE from R-sided donor site 03/13, 03/15: OR for skin graft dressing change for LUE and LLE 24hr events: ?? No acute events overnight, having worsening left lower extremity pain this am ?? no complaints this AM, denies n/v/cp/sob O: Last value Range last 24hrs Temperature Temp: 37.3 ??C (99.1 ??F) Temp: [36.7 ??C (98.1 ??F)-37.4 ??C (99.3 ??F)] Heart Rate Heart Rate: (!) 114 Heart Rate: -- Blood Pressure BP: (!) 133/97 (RN notified) BP: (133-152)/(94-106) Respiratory Rate Resp: 17 Resp: [16-18] SpO2 SpO2: 96 % SpO2: [90 %-99 %] 03/20 0701 - 03/21 0700 In: 1200 [P.O.:1200] Out: 5900 [Urine:5900] Stool x1 Physical Exam: General: NAD, resting comfortably, pleasant, conversant HEENT: PERRL, anicteric sclerae CVS: tachycardic on monitor Pulm: Breathing comfortably on room air Abd: soft, non-distended, nontender Skin: warm, dry Ext: Left upper extremity tamie wrap in place, still some limited mobility in finger extension, left lower extremity tamie wrap in place, tender to palpation, right thigh skin donor site open to air and healing appropriately Neuro: CN 2-12 grossly intact, nonfocal,moving all four extremities spontaneously No results for input(s): WBC, HGB, HCT, PLATELET, PT, INR, PTT in the last 72 hours. Recent Labs 03/20/22 1227 03/20/22 1200 NA 140 -- K 4.3 -- CL 104 -- CO2 23 -- BUN 13 -- CREATININE 0.67* -- GLUCOSE 94 -- CALCIUM 9.6 -- MAGNESIUM -- 0.75 PHOS -- 3.8 NEW IMAGING: ?? None new MICRO: 03/05: left thigh wound, MRSA, Pseudomonas ASSESSMENT: Alix Holland is a 31 y.o. 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 He has had multiple returns to the operating room for his left upper extremity and lower extremity fasciotomy sites which have subsequently under gone skin grafting with 100% take from right thigh. This wound was colonized with pseudomonas for which he finished antibiotics for yesterday. He will continue on abx for C diff ppx till 03/26. Medically ready for discharge. BMP within normal limits yesterday. Plan to change from oxycodone to dilaudid today as this may work better for his pain. PLAN: NEURO: Pain control: tylenol, suboxone initiated 03/18, marinol, dilaudid 4-6mg, re-engage neurology 03/22 for possible EMG/NCS testing for peripheral neuropathy CV: amlodipine PULM: IS, OOB GI: Regular diet, bowel regimen : voiding independently FEK: HLIVF, vitamin C, tums, Vit D2, folic acid, multivitamin, thiamine ID: S/p treatment for C diff, vancomycin and meropenum ended 03/19 , c diff ppx vancomycin po (03/17-03/26) HEME: SQH, SCDs MSK: left upper and lower extremity wounds dressed with Aquaphor, kerlix and tamie wrap, wet to dry inopen area of left lower extremity ENDO: none PROPHYLAXIS: SQH, SCDs DISPO: floor status, full code Veto Hidalgo MD PGY5 Acute Care Surgery pager [phone] Attending Addendum I have seen and examined the patient and reviewed the history documented above and I agree with the details as written. I have reviewed the laboratory data and viewed the pertinent imaging. The assessment and plan were formulated in discussion with me and I agree with them as documented. Skin grafts with good take, continue dressing changes and packing of upper thigh wound PT/OT and dispo planning Matthias Chatterjee MD Jeanette Chatterjee MD - 03/20/2022 11:08 AM EDT General Surgery Resident Inpatient Progress Note ID: Alix Holland is a 31 y.o. 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 Procedures: 01/23: L thigh fasciotomy, L lower leg fasciotomy, L buttock fasciotomy, L forearm fasciotomy 01/26: Debridements and wound vac change 01/29: Debridement of fasciotomies, closure of L lower leg fasciotomy, closure of dorsal forearm fasciotomy, partial closure L thigh fasciotomy 01/31, 02/02, 02/04, 02/05: Debridement and wound vac change 02/06:??IR embolization of SGA pseudoaneurysm 02/06:??LLE hematoma evacuation and washout 02/08, 02/09, 02/11, 02/13, 02/15, 02/19, 02/22, 02/24, 02/26, 03/01, 03/03: washout and vac change, LLE and LUE 03/10: OR for skin grafting of LUE and LLE from R-sided donor site 03/13, 03/15: OR for skin graft dressing change for LUE and LLE 24hr events: ?? C diff precautions removed yesterday ?? Antibiotics discontinued for wound colonization, PO vanco to remain for 1 week ?? No acute events overnight ?? no complaints this AM, denies n/v/cp/sob O: Last value Range last 24hrs Temperature Temp: 37 ??C (98.6 ??F) Temp: [36.7 ??C (98.1 ??F)-37 ??C (98.6 ??F)] Heart Rate Heart Rate: (!) 114 Heart Rate: -- Blood Pressure BP: (!) 145/99 BP: (134-147)/(92-100) Respiratory Rate Resp: 16 Resp: [16-18] SpO2 SpO2: 96 % SpO2: [93 %-100 %] 03/19 0701 - 03/20 0700 In: 4701 [P.O.:3500; I.V.:1201] Out: 6050 [Urine:6050] Physical Exam: General: NAD, resting comfortably, pleasant, conversant HEENT: PERRL, anicteric sclerae CVS: tachycardic on monitor Pulm: Breathing comfortably on room air Abd: soft, non-distended, nontender Skin: warm, dry Ext: Left upper extremity tamie wrap in place, still some limited mobility in finger extension, left lower extremity tamie wrap in place, tender to palpation, right thigh skin donor site open to air and healing appropriately Neuro: CN 2-12 grossly intact, nonfocal,moving all four extremities spontaneously No results for input(s): WBC, HGB, HCT, PLATELET, PT, INR, PTT in the last 72 hours. No results for input(s): NA, K, CL, CO2, BUN, CREATININE, GLUCOSE, CALCIUM, MAGNESIUM, PHOS in the last 72 hours. NEW IMAGING: ?? None new MICRO: 03/05: left thigh wound, MRSA, Pseudomonas ASSESSMENT: Alix Holland is a 31 y.o. 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 He has had multiple returns to the operating room for his left upper extremity and lower extremity fasciotomy sites which have subsequently under gone skin grafting with 100% take from right thigh. This wound was colonized with pseudomonas for which he finished antibiotics for yesterday. He will continue on abx for C diff ppx till 03/26. Medically ready for discharge. Increased urine output likely due to inability to concentrate urine appropriately which high protein diet can contribute to. Will place on regular diet. Will check BMP today to assess for any electrolyte/cr abnormalities. PLAN: NEURO: Pain control: tylenol, suboxone initiated 03/18, marinol, oxycodone 10- 15mg (Will discuss weaning with BIT based on suboxone initiation protocol), re- engage neurology 03/22 for possible EMG/NCS testing for peripheral neuropathy CV: amlodipine PULM: IS, OOB GI: Regular diet, bowel regimen : voiding independently FEK: HLIVF, vitamin C, tums, Vit D2, folic acid, multivitamin, thiamine ID: S/p treatment for C diff, vancomycin and meropenum ended 03/19 , c diff ppx vancomycin po (03/17-03/26) HEME: SQH, SCDs MSK: left upper and lower extremity wounds dressed with Aquaphor, kerlix and tamie wrap, wet to dry inopen area of left lower extremity ENDO: none PROPHYLAXIS: SQH, SCDs DISPO: floor status, full code Veto Hidalgo MD PGY5 Acute Care Surgery pager [phone] Attending Addendum I have seen and examined the patient and reviewed the history documented above and I agree with the details as written. I have reviewed the laboratory data and viewed the pertinent imaging. The assessment and plan were formulated in discussion with me and I agree with them as documented. Skin grafts with good take, continue dressing changes and packing of upper thigh wound PT/OT and dispo planning D. Aidan Chatterjee MD Gail Quiroz RN - 03/19/2022 4:11 PM EDT Per request this racebook writer updated patient on inpatient rehabilitation facility search, informed that [facility] following [facility] referral, however at this time does not have acute rehab bed availability till 03/22/2022. Alix would like referral to [facility] which is closed to home. Discussed that [facility] is SNF with less therapy hours available. Patient verbalized understanding and in would like referral placed to: [address] [address] [place] please submit referral with all supporting documentation. Jeanette Chatterjee MD - 03/19/2022 2:43 PM EDT Acute Care Surgery Daily Progress Note Admission Date: 01/23/2022 ID: Alix Holland is a 31 y.o. male with HTN, angioedema requiring intubation 04/21, GERD, gastritis, esophagitis, urachal cyst, and polysubstance use (EtOH, cocaine, heroin) who was admitted to the MICU 01/23/2022 s/p VT arrest in the setting of being found down following fentanyl overdose and developing L forearm and L thigh compartment syndrome (s/p L forearm, L buttock, and L thigh fasciotomies) w/ subsequent rhabdomyolysis, renal failure, and hyperkalemia which required CVVH. He was transitioned to iHD and transferred to floor status 02/02, however he had persistent daily transfusion requirement from ongoing wound vac bleeding and returned to the OR x2 (02/04 and 02/05) for irrigation and debridement of fasciotomy wounds, however no focal source of bleeding was identified. He was transferred to the SICU 02/05 after L thigh wound vac filled with alexsandra blood and hgb dropped to 4.6 despite 6U pRBC. He went to IR for embolization of SGA pseudoaneurysm and to the OR for hematoma washout on 02/06. He returned to the OR for washout and debridement again on 02/08 and 02/09. He was subsequently lateralized to the ACS service and transferred to floor status on 02/10. His hospital course has also been notable for asymptomatic COVID-19 infection, C. difficile infection, transaminitis most likely from ischemic hepatitis, and bilateral globus pallidus infarctions (possibly due to toxic metabolic insult). Procedures: 01/23: L thigh fasciotomy, L lower leg fasciotomy, L buttock fasciotomy, L forearm fasciotomy 01/26: Debridements and wound vac change 01/29: Debridement of fasciotomies, closure of L lower leg fasciotomy, closure of dorsal forearm fasciotomy, partial closure L thigh fasciotomy 01/31: Debridement and wound vac change 02/02: Debridement and wound vac change 02/04: Debridement and wound vac change 02/05: Debridement and wound vac change, 02/06: IR embolization of SGA pseudoaneurysm 02/06: LLE hematoma evacuation and washout 02/08: washout and debridement LLE, vac change LUE 02/09: washout and debridement LLE with vac placement 02/11: washout and vac change, LLE and LUE 02/13: washout and vac change, LLE and LUE 02/15: washout and vac change, LLE and LUE, possible drainage of L gluteal abscess 02/19: washout and vac change, LLE and LUE 02/22: washout and vac change, LLE and LUE 02/24: washout and vac change, LLE and LUE 02/26: washout and vac change, LLE and LUE 03/01: washout and vac change, LLE and LUE 03/03: washout and vac change, LLE and LUE 03/05: vac change at bedside, LLE and LUE w/ cultures 03/07: vac change at bedside, LLE and LUE 03/08: vac change at bedside, LLE and LUE 03/10: OR for skin grafting of LUE and LLE from R-sided donor site 03/13: OR for skin graft dressing change for LUE and LLE 03/15: OR for skin graft dressing change for LUE and LLE Subjective Interval Events: - Dressing change at bedside yesterday (03/18), RN to perform subsequent changes - BIT consult yesterday (03/18) regarding MAT with Suboxone; BIT Peer support visit yesterday. Started Suboxone per Psych recs. - Discontinued HAND STRIPER Dilaudid yesterday (03/18). - Discontinued IV Vanc and Meropenem, kept PO Vanc (until 03/26) as recommended by ID Objective Vitals: Last Value Range last 24 hrs Temperature Temp: 37 ??C (98.6 ??F) Temp: [36.8 ??C (98.2 ??F)-37 ??C (98.6 ??F)] Heart Rate Heart Rate: (!) 114 Heart Rate: [114] Blood Pressure BP: (!) 143/92 BP: (139-148)/(92-103) Respiratory Rate Resp: 18 Resp: [18] SpO2 SpO2: 100 % SpO2: [93 %-100 %] O2 Device O2 Device: None (Room air) Intake/Output: 03/18 0701 - 03/19 0700 In: 2620 [P.O.:2620] Out: 6675 [Urine:6675] Physical Exam: GEN: resting comfortably in bed, NAD HEENT: normocephalic, atraumatic CHEST: In no respiratory distress on RA CV: Regular rate, well perfused ABD: soft, nontender, nondistended EXTR: LLE lateral thigh fasciotomy wound and LUE wound in tamie bandages SKIN: WWP NEURO: Moving all extremities equally Labs: No results for input(s): WBC, HGB, HCT, PLATELET, PT, INR, PTT in the last 72 hours. No results for input(s): NA, K, CL, CO2, BUN, CREATININE, GLUCOSE, CALCIUM, MAGNESIUM, PHOS in the last 72 hours. C Diff Screen Date Value Ref Range Status 02/01/2022 Positive (A) Negative Final Comment: PCR Pos C. diff Positive (GDH positive, toxin antigen negative, toxin PCR positive) DNA from a toxigenic strain of C. difficile was detected, although the free toxin itself was not detected. These results cannot distinguish between colonization and infection. They must be interpreted within the patient???s overall clinical context. Consider other causes for diarrhea or the presence of a non-toxigenic strain. Patient needs to remain on Soap & Water Contact Precautions until discharge or approval by Infection Prevention. Abscess/Wound Aspirate Culture Date Value Ref Range Status 02/19/2022 (A) Final Rare Serratia marcescens Rare Pseudomonas aeruginosa 02/17/2022 (A) Final One colony of Serratia marcescens : Susceptibilities previously reported One colony of Pseudomonas aeruginosa : Susceptibilities previously reported 02/17/2022 (A) Final One colony of Serratia marcescens : Susceptibilities previously reported Anaerobic Culture Date Value Ref Range Status 02/19/2022 No anaerobic organisms isolated Final 02/17/2022 No anaerobic organisms isolated Final 02/17/2022 No anaerobic organisms isolated Final Tissue Culture Date Value Ref Range Status 02/09/2022 (A) Final Few Pseudomonas aeruginosa Few Serratia marcescens Susceptibilities previously reported Blood Culture Date Value Ref Range Status 02/06/2022 No growth at 5 days. Final 02/05/2022 No growth at 5 days. Final 02/01/2022 No growth at 5 days. Final Studies: No recent imaging Assessment and Plan Alix Holland is a 31 y.o. male with HTN, angioedema requiring intubation 04/21, GERD, gastritis, esophagitis, urachal cyst, and polysubstance use (EtOH, cocaine, heroin) who was admitted 01/23/2022 forcompartment syndrome and rhabdomyalysis after being found down. He is now s/p multiple fasciotomies and debridements of LLE and L forearm. Mr. Holland has had a prolonged, complicated hospital course which has been significant for renal replacement therapy secondary to rhabdomyolysis, ICU admissions, multiple debridements, and persistent transfusion requirement. He was transferred to the floor 02/10 and appears to be slowly progressing towards recovery. His wound cultures grew Pseudomonas and Serratia for which he has been covered with by Zosyn. ID consulted 02/11 and Zosyn discontinued and transitioned to cefepime. He also has C. difficile for which he is being treated with p.o. vancomycin which will continue for 10 days (until 03/01/22) following disco ntinuation of cefepime. His leukocytosis has improved. ID was again consulted on 02/22 for cefepime-resistant pseudomonas. Despite the resistence, Mr. Holland has been afebrile and without a leukocytosis so the decision was made to stop cefepime and flagyl. His last dialysis was 02/18/22, central access remains in place due to lack of peripheral access options. His Cr continues to improve, and his urine output remains high. Given his improved renal function, Nephrology recommended stopping weekly EPO, resuming a normal diet, starting vitamin D supplementation and a normal multivitamin. Cultures from 03/05 demonstrated GPCs and GNRs, pseudomonas and speciated MRSA. The patient went to the OR on 03/13 and it was observed that there was 100% take of the LUE and LLE skin graft. There is still the concern for pseudomonal infection which could adversely affect the skingraft. ID was re-engaged and left extensive recommendations that have been followed. The patient returned to the OR on 03/15 for dressing change. His activity status remains as activity as tolerated. Monica OT saw him on 03/16 and suggested discharge to acute care rehab when medically cleared; case management has contacted two facilities and placement is ongoing. Possibly will be discharged to [facility] but there are no beds currently. He may need a COVID test prior to discharge per facility request; otherwise, monitor with weekly CBCs and BMPs. He had his dressings changed at the bedside yesterday with Dr. Chatterjee who used Aquafor instead of silver gel. HAND STRIPER (dilaudid) was discontinued yesterday (03/18). He completed a course of IV Vancomycin and Meropenem (ended 03/19), now only on PO Vancomycin (ends 03/26). Diet remains as high calorie/protein with the addition of TUMS at meals. Of note, patient had excessive urine output in the past 24hrs at a volume of 6.7L. Suspect underlying impaired renal concentrating ability in light of his recent renal failure contributing to this admission. Plan: Neuro: #Pain - [place] PO Tylenol 1000 mg q8h - PO Oxycodone 10-15 PRN Q4 #Polysubstance abuse, found down following fentanyl ingestion, Toxic metabolic encephalopathy, bilateral globus pallidum infarcts - Thiamine, folate supplementation - Q shift neurovascular checks - Neurology consulted 01/23, re-consulted 02/16, no changes to plan - Expected BG evolution on MRI. No further w/u - Re-consult neuro closer to d/c for EMG/NCS testing for peripheral neuropathy Psych: - Seen on 03/16: RC will continue to follow patient for duration of admission. He has taken some resources but has not set up a formal recovery plan. - BIT consulted regarding MAT with Suboxone; Patient started MAT regimen yesterday (03/18). CV: #Persistent tachycardia, likely d/t increased metabolic demand from wounds and infections - Amlodipine 10mg daily Resp: Encourage IS, OOB GI: #Bowel reg Marinol 10mg BID, Lactulose BID PRN, Scheduled senna and colace #Nausea - Zofran PRN - compazine PRN FEN: #Diet - High calorie/protein - Vitamin C, Marinol BID - TUMS Renal/: - 03/01: Ferritin 693, Total Fe 21, TIBC 185. Nephrology signed off. S/p IV iron. Oral iron supplements - Per nephrology, begin IV iron after Vancomycin course completed 03/01/22 (02/25), Stop weekly EPO (note 02/27), start vitamin D supplementation, start regular multivitamin. Vit D level in mid-May. - Will need CKD clinic follow-up - Daily weights 77.4 Heme: JAVON. Transfuse for Hgb < 7. ID: C diff precautions for 4 weeks until Mar 29. - ID consulted 02/11, 02/17, 02/22, 03/13 - S/p PO Vanc BID for c diff (02/01- 03/01/22). - S/p Cefepime (02/11 - 02/22) - can d/c due to antibiotic resistance - S/p IV flagyl q8h for c diff (02/16 - 02/22) - S/p Unasyn (01/23-01/26 and 01/29-02/01), Cefazolin (01/26-01/29 and 02/01-02/07), Zosyn (02/08-02/11) - 02/15 L Thigh wound culture: Pseudomonas, Serratia, Gram positive cocci - 02/08 and 02/09 wound cx: Pseudomonas, serratia - 03/12 - 03/13 : zosyn - 03/05 wound cultures: pseudomonas and MRSA. ID Recommendations on 03/13: new wound cultures on 03/14 from wounds, contacting the lab to have them assess the sensitivities of the 03/05 culture to ceftazidime-avibactam and ceftolozane- tazobactam (expected results 03/15-03/17), starting on PO vanc at 125mg BID, Vancomycin IV 15mg/kg per Pharmacy and Meropenam 1g Q8H (Ends 03/19), Vancomycin PO 1g q8hrs (starts03/19, ends 03/26), Endo: JAVON MSK: - s/p multiple fasciotomies, OR debridements, and wound vac changes - Plastics consulted 02/04, okay for primary team to close wounds - Ortho consulted 02/17, signed off, weight bearing status to be determined by primary team - Working with PT/OT 2-4x/week Prophy: Resp: OOB, IS; DVT: SQH TID, IPCs, OOB Lines/Drains/Tubes/Airways: Patient Lines/Drains/Airways Status Active Tubes/Lines/Drains Name Placement date Placement time Site Days PICC Line - Double Lumen 03/03/22 1449 basilic vein (medial side of arm), right 5 Fr 03/03/22 1449 -- 16 Dispo: Floor status; PT/OT consulted: recommend acute rehab - [facility] sent requests to 2 locations with ongoing placement attempts. Code Status: Attempt Cardiopulmonary Resuscitation - Inpatient Note written in collaboration with Sivakumar Pierre MS3. Batsheva Hill MD Resident, General Surgery 03/19/22 Attending Addendum I have seen and examined the patient and reviewed the history documented above and I agree with the details as written. I have reviewed the laboratory data and viewed the pertinent imaging. The assessment and plan were formulated in discussion with me and I agree with them as documented. Skin grafts with good take, continue dressing changes and packing of upper thigh wound PT/OT and dispo planning D. Aidan Chatterjee MD Batsheva Hill MD - 03/18/2022 10:51 AM EDT Acute Care Surgery Daily Progress Note Admission Date: 01/23/2022 ID: Alix Holland is a 31 y.o. male with HTN, angioedema requiring intubation 04/21, GERD, gastritis, esophagitis, urachal cyst, and polysubstance use (EtOH, cocaine, heroin) who was admitted to the MICU 01/23/2022 s/p VT arrest in the setting of being found down following fentanyl overdose and developing L forearm and L thigh compartment syndrome (s/p L forearm, L buttock, and L thigh fasciotomies) w/ subsequent rhabdomyolysis, renal failure, and hyperkalemia which required CVVH. He was transitioned to iHD and transferred to floor status 02/02, however he had persistent daily transfusion requirement from ongoing wound vac bleeding and returned to the OR x2 (02/04 and 02/05) for irrigation and debridement of fasciotomy wounds, however no focal source of bleeding was identified. He was transferred to the SICU 02/05 after L thigh wound vac filled with alexsandra blood and hgb dropped to 4.6 despite 6U pRBC. He went to IR for embolization of SGA pseudoaneurysm and to the OR for hematoma washout on 02/06. He returned to the OR for washout and debridement again on 02/08 and 02/09. He was subsequently lateralized to the ACS service and transferred to floor status on 02/10. His hospital course has also been notable for asymptomatic COVID-19 infection, C. difficile infection, transaminitis most likely from ischemic hepatitis, and bilateral globus pallidus infarctions (possibly due to toxic metabolic insult). Procedures: 01/23: L thigh fasciotomy, L lower leg fasciotomy, L buttock fasciotomy, L forearm fasciotomy 01/26: Debridements and wound vac change 01/29: Debridement of fasciotomies, closure of L lower leg fasciotomy, closure of dorsal forearm fasciotomy, partial closure L thigh fasciotomy 01/31: Debridement and wound vac change 02/02: Debridement and wound vac change 02/04: Debridement and wound vac change 02/05: Debridement and wound vac change, 02/06: IR embolization of SGA pseudoaneurysm 02/06: LLE hematoma evacuation and washout 02/08: washout and debridement LLE, vac change LUE 02/09: washout and debridement LLE with vac placement 02/11: washout and vac change, LLE and LUE 02/13: washout and vac change, LLE and LUE 02/15: washout and vac change, LLE and LUE, possible drainage of L gluteal abscess 02/19: washout and vac change, LLE and LUE 02/22: washout and vac change, LLE and LUE 02/24: washout and vac change, LLE and LUE 02/26: washout and vac change, LLE and LUE 03/01: washout and vac change, LLE and LUE 03/03: washout and vac change, LLE and LUE 03/05: vac change at bedside, LLE and LUE w/ cultures 03/07: vac change at bedside, LLE and LUE 03/08: vac change at bedside, LLE and LUE 03/10: OR for skin grafting of LUE and LLE from R-sided donor site 03/13: OR for skin graft dressing change for LUE and LLE 03/15: OR for skin graft dressing change for LUE and LLE Subjective Interval Events: - 1x Episodes of emesis 500cc yesterday; Declined PT because he was not feeling well. Otherwise, hasbeen off of bedrest since 03/15. - Dressing change at bedside yesterday (03/17) with plan to change again today. - D/C HAND STRIPER (Dilaudid) today. - On IV Vanc and Meropenem (to be continued to 03/19) and start PO Vanc when IV antibiotics finish (until 03/26) as recommended by ID Objective Vitals: Last Value Range last 24 hrs Temperature Temp: 36.9 ??C (98.4 ??F) Temp: [36.8 ??C (98.2 ??F)-37.3 ??C (99.1 ??F)] Heart Rate Heart Rate: (!) 114 Heart Rate: -- Blood Pressure BP: (!) 141/96 BP: (133-143)/(88-98) Respiratory Rate Resp: 18 Resp: [18] SpO2 SpO2: 99 % SpO2: [52 %-100 %] O2 Device O2 Device: None (Room air) Intake/Output: 03/17 0701 - 03/18 0700 In: 700 [P.O.:700] Out: 4350 [Urine:3850] 500cc Other (suspect this is emesis volume recorded) Physical Exam: GEN: resting comfortably in bed, NAD HEENT: normocephalic, atraumatic CHEST: In no respiratory distress on RA CV: Regular rate, well perfused ABD: soft, nontender, nondistended EXTR: LLE lateral thigh fasciotomy wound and LUE wound redressed at bedside, no purulent drainage orexcessive erythema, sites intact SKIN: WWP NEURO: Moving all extremities equally Labs: No results for input(s): WBC, HGB, HCT, PLATELET, PT, INR, PTT in the last 72 hours. No results for input(s): NA, K, CL, CO2, BUN, CREATININE, GLUCOSE, CALCIUM, MAGNESIUM, PHOS in the last 72 hours. C Diff Screen Date Value Ref Range Status 02/01/2022 Positive (A) Negative Final Comment: PCR Pos C. diff Positive (GDH positive, toxin antigen negative, toxin PCR positive) DNA from a toxigenic strain of C. difficile was detected, although the free toxin itself was not detected. These results cannot distinguish between colonization and infection. They must be interpreted within the patient???s overall clinical context. Consider other causes for diarrhea or the presence of a non-toxigenic strain. Patient needs to remain on Soap & Water Contact Precautions until discharge or approval by Infection Prevention. Abscess/Wound Aspirate Culture Date Value Ref Range Status 02/19/2022 (A) Final Rare Serratia marcescens Rare Pseudomonas aeruginosa 02/17/2022 (A) Final One colony of Serratia marcescens : Susceptibilities previously reported One colony of Pseudomonas aeruginosa : Susceptibilities previously reported 02/17/2022 (A) Final One colony of Serratia marcescens : Susceptibilities previously reported Anaerobic Culture Date Value Ref Range Status 02/19/2022 No anaerobic organisms isolated Final 02/17/2022 No anaerobic organisms isolated Final 02/17/2022 No anaerobic organisms isolated Final Tissue Culture Date Value Ref Range Status 02/09/2022 (A) Final Few Pseudomonas aeruginosa Few Serratia marcescens Susceptibilities previously reported Blood Culture Date Value Ref Range Status 02/06/2022 No growth at 5 days. Final 02/05/2022 No growth at 5 days. Final 02/01/2022 No growth at 5 days. Final Studies: No recent imaging Assessment and Plan Alix Holland is a 31 y.o. male with HTN, angioedema requiring intubation 04/21, GERD, gastritis, esophagitis, urachal cyst, and polysubstance use (EtOH, cocaine, heroin) who was admitted 01/23/2022 forcompartment syndrome and rhabdomyalysis after being found down. He is now s/p multiple fasciotomies and debridements of LLE and L forearm. Mr. Holland has had a prolonged, complicated hospital course which has been significant for renal replacement therapy secondary to rhabdomyolysis, ICU admissions, multiple debridements, and persistent transfusion requirement. He was transferred to the floor 02/10 and appears to be slowly progressing towards recovery. His wound cultures grew Pseudomonas and Serratia for which he has been covered with by Zosyn. ID consulted 02/11 and Zosyn discontinued and transitioned to cefepime. He also has C. difficile for which he is being treated with p.o. vancomycin which will continue for 10 days (until 03/01/22) following disco ntinuation of cefepime. His leukocytosis has improved. ID was again consulted on 02/22 for cefepime-resistant pseudomonas. Despite the resistence, Mr. Holland has been afebrile and without a leukocytosis so the decision was made to stop cefepime and flagyl. His last dialysis was 02/18/22, central access remains in place due to lack of peripheral access options. His Cr continues to improve, and his urine output remains high. Given his improved renal function, Nephrology recommended stopping weekly EPO, resuming a normal diet, starting vitamin D supplementation and a normal multivitamin. Cultures from 03/05 demonstrated GPCs and GNRs, pseudomonas and speciated MRSA. The patient went to the OR on 03/13 and it was observed that there was 100% take of the LUE and LLE skin graft. There is still the concern for pseudomonal infection which could adversely affect the skingraft. ID was re-engaged and left extensive recommendations that have been followed. The patient returned to the OR on 03/15 for dressing change. His activity status remains as activity as tolerated. Monica OT saw him on 03/16 and suggested discharge to acute care rehab when medically cleared; case management has contacted two facilities and placement is ongoing. Possibly will be discharged to [facility] but there are no beds currently. He had his dressings changed at the bedside yesterday with Dr. Chatterjee who used bacitracin; completed another dressing change today with Aquafor instead of silver gel. HAND STRIPER (dilaudid) was discontinued today. Diet remains as high calorie/protein with the addition of TUMS at meals. He will complete a course of IV Vancomycin and Meropenem (ends 03/19) before switching to PO Vancomycin (ends 03/26). Plan: Neuro: #Pain - [place] PO Tylenol 1000 mg q8h - D/c dilaudid HAND STRIPER - PO Oxycodone 10-15 PRN Q4 #Polysubstance abuse, found down following fentanyl ingestion, Toxic metabolic encephalopathy, bilateral globus pallidum infarcts - Thiamine, folate supplementation - Q shift neurovascular checks - Neurology consulted 01/23, re-consulted 02/16, no changes to plan - Expected BG evolution on MRI. No further w/u - Re-consult neuro closer to d/c for EMG/NCS testing for peripheral neuropathy Psych: - Seen on 03/16: RC will continue to follow patient for duration of admission. He has taken some resources but has not set up a formal recovery plan. - BIT consulted on 03/17 to discuss induction of suboxone or outpatient follow up; they plan to follow up with patient CV: #Persistent tachycardia, likely d/t increased metabolic demand from wounds and infections - Amlodipine 10mg daily Resp: Encourage IS, OOB GI: #Bowel reg Marinol 10mg BID, Lactulose BID PRN, Scheduled senna and colace #Nausea - Zofran PRN - compazine PRN FEN: #Diet - High calorie/protein - Vitamin C, Marinol BID - TUMS Renal/: - 03/01: Ferritin 693, Total Fe 21, TIBC 185. Nephrology signed off. S/p IV iron. Oral iron supplements - Per nephrology, begin IV iron after Vancomycin course completed 03/01/22 (02/25), Stop weekly EPO (note 02/27), start vitamin D supplementation, start regular multivitamin. Vit D level in mid-May. - Will need CKD clinic follow-up - Daily weights 77.4 Heme: JAVON. Transfuse for Hgb < 7. ID: C diff precautions for 4 weeks until Mar 29. - ID consulted 02/11, 02/17, 02/22, 03/13 - S/p PO Vanc BID for c diff (02/01- 03/01/22). - S/p Cefepime (02/11 - 02/22) - can d/c due to antibiotic resistance - S/p IV flagyl q8h for c diff (02/16 - 02/22) - S/p Unasyn (01/23-01/26 and 01/29-02/01), Cefazolin (01/26-01/29 and 02/01-02/07), Zosyn (02/08-02/11) - 02/15 L Thigh wound culture: Pseudomonas, Serratia, Gram positive cocci - 02/08 and 02/09 wound cx: Pseudomonas, serratia - 03/12 - 03/13 : zosyn - 03/05 wound cultures: pseudomonas and MRSA. ID Recommendations on 03/13: new wound cultures on 03/14 from wounds, contacting the lab to have them assess the sensitivities of the 03/05 culture to ceftazidime-avibactam and ceftolozane- tazobactam (expected results 03/15-03/17), starting on PO vanc at 125mg BID, Vancomycin IV 15mg/kg per Pharmacy and Meropenam 1g Q8H (Ends 03/19), Vancomycin PO 1g q8hrs (starts03/19, ends 03/26), Endo: JAVON MSK: - s/p multiple fasciotomies, OR debridements, and wound vac changes - Plastics consulted 02/04, okay for primary team to close wounds - Ortho consulted 02/17, signed off, weight bearing status to be determined by primary team - Working with PT/OT 2-4x/week Prophy: Resp: OOB, IS; DVT: SQH TID, IPCs, OOB Lines/Drains/Tubes/Airways: Patient Lines/Drains/Airways Status Active Tubes/Lines/Drains Name Placement date Placement time Site Days PICC Line - Double Lumen 03/03/22 1449 basilic vein (medial side of arm), right 5 Fr 03/03/22 1449 -- 15 Dispo: Floor status; PT/OT consulted: recommend acute rehab - Brick Catcher sent requests to 2 locations with ongoing placement attempts. Code Status: Attempt Cardiopulmonary Resuscitation - Inpatient Note written in collaboration with Sivakumar Pierre MS3. Batsheva Hill MD Resident, General Surgery 03/18/22 Sivakumar Trevino PTA - 03/17/2022 3:58 PM EDT Physical Therapy Note Treatment Number PT: 8 Patient profile: Alix Holland is a 31 y.o.??gentleman admitted to the MICU on 01/23/22 after being found down and encephalopathic by family with verbal reports of Fentanyl ingestion; this was followedby witnessed in-hospital [place] cardiac arrest at the receiving ED (hyperkalemia at the time). He was also noted to have severe rhabdomyolysis with compartment syndrome and resultant ALTHEA. Now s/p??fasciotomies of L thigh, calf forearm and wrist (01/23) and??I+D SHAMAR ROBB (01/26). Previously completed treatment??for aspiration pneumonia versus MSSA CAP. He was also found to have asymptomatic COVID19 infection in admission testing. Scattered punctate infarcts on MR brain and CT COW/carotids from 01/24/22 readas normal.??Neurology believes??MRI findings are related to toxometabolic issues rather than a stroke.??Extubated PM of 01/26/22??and remains on room air. Interval History: Per Gen Surg note 03/17/22: - Now off of bedrest as of 03/15. - D/c'd antibiotics yesterday (03/16); restarted IV Vanc and Meropenem (to be continued to 03/19) and start PO Vanc when IV antibiotics finish (until 03/26) as recommended by ID - Weaning HAND STRIPER (dilaudid) with the plan to d/c it tomorrow - Dressing change at bedside today by Dr. Chatterjee - Nutrition consult: d/c low phosphorus diet and start high calorie/protein diet with TUMS added to meals (continues to have high phosphorous) - BIT saw him yesterday (03/16): Peer support during remainder of stay. - PT/OT saw him yesterday (03/16): Recommend d/c to acute care rehab once medically cleared. Social History: Home setup: Pt lives with his father in a two level home with a couple BERNADETTE. Pt's bedroom and bathroom are on the first floor. The bathroom has a tub shower. 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 Enjoys hunting and fishing. DME: none Precautions/Special Considerations: fall risk; soap and water contact Mobility and Positioning Recommendations: ?? Stand step transfer with 2 assist and FWW ?? Encourage transfers to commode vs bedpan for toileting ?? Please encourage up to chair or bed chair position throughout the day as able. Subjective: This is a lot on my arms Objective: Patient seen for physical therapy and demonstrated the following: Pain: C/o mild-moderate L hip pain with L hip flexion Vitals: Tachycardic upon transitioning to EOB and with mobility, HR up to 150 Bed mobility: Supine>Short Sitting: HOB elevated ~30*. Was able to adduct the L hip to the EOB, then use the RLE to carry it the rest of the way to the floor. CGA with vc Transfers: Sit<>Stand: Ht of bed elevated, modA with FWW and gait belt Gait: Distance: 8' Level of Assist: Naye Assistive Device: FWW, L AFO, shoes, L knee wrapped for stability Gait Mechanics: Tends to lean posteriorly to advance the LLE, poor eccentric control and foot placement. hip hiking to advance the LLE with nearly absent heel strike and significiant foot drop. Hyperextending the L knee and ligament hanging during stance phase of the LLE. Therapeutic Exercise: Sit<>stand x10 with ht of bed elevated, cues for techique. x10 Manual L gastroc stretch Balance: Seated Static: Supervision Seated Dyn: NT Standing Static: Good with FWW Dyn: Fair ?? Education: patient has been educated on Bed mobility, Positioning, Safety, Precautions/protocol, Role of therapy and Discharge planning and verbalizes understanding but will benefit from ongoing reinforcement Patient status, treatment, and mobility recommendations discussed with nursing. Pt left supine in bed with call starks within reach, all needs met and family present following visit. Assessment: Pt seen today for physical therapy treatment per POC. Pt presented to physical therapy without c/o pain and willing to participate. Today's session focusing on gait training and therapeuticexercise. Pt continues to demonstrate multiple gait deviations associated with LLE weakness. Pt tolerated ambulating further, though quite unsteady and with impaired balance. Pt will benefit from ongoing physical therapy to address the above impairments and facilitate return to PLOF. Discharge Recommendations: Based on the current findings, Anticipated Discharge Disposition (PT): acute rehabilitation facilitywhen medically ready for hospital discharge. Consult Recommendations: No other consults recommended at this time. Equipment needs: TBD, anticipate d/c to rehab Physical Therapy Goals: To be achieved by 02/19/22: ?? 1. Pt. to demonstrate knowledge of safety limitations and precautions and will appropriately requestassistance for functional activities and to mobilize. Met 2. Pt. to demonstrate understanding of appropriate exercises. Met 3. Pt. to perform bed mobility with supervision using bed features or adaptive equipment as needed. Met 4. Pt. to perform sit to stand and stand pivot transfers with min A using a front wheeled walker. ONGOING 5. Pt. to ambulate 25 feet with min A using a front wheeled walker. ONGOING 6. Pt will stand with UE support and min A x2 minutes while participating in functional tasks. ONGOING 7. Pt to propel wheelchair x 50 ft. using R UE/LE with supervision. ONGOING 8. Pt will tolerate progression towards upright with stable vital signs. ONGOING Plan: Therapy Frequency (PT): 2-4 times/wk for therapy including balance training, bed mobility training, gait training, patient/family education, strengthening, transfer training and wheelchair managment/propulsion training. Total Minutes, Physical Therapy: 60 ([id number]) Billing Code: TEFx2, GT Sivakumar Trevino, [employer] Pager: [phone] Physical Therapy Inpatient Rehabilitation Department Jeanette Chatterjee MD - 03/17/2022 8:46 AM EDT Acute Care Surgery Daily Progress Note Admission Date: 01/23/2022 ID: Alix Holland is a 31 y.o. male with HTN, angioedema requiring intubation 04/21, GERD, gastritis, esophagitis, urachal cyst, and polysubstance use (EtOH, cocaine, heroin) who was admitted to the MICU 01/23/2022 s/p VT arrest in the setting of being found down following fentanyl overdose and developing L forearm and L thigh compartment syndrome (s/p L forearm, L buttock, and L thigh fasciotomies) w/ subsequent rhabdomyolysis, renal failure, and hyperkalemia which required CVVH. He was transitioned to iHD and transferred to floor status 02/02, however he had persistent daily transfusion requirement from ongoing wound vac bleeding and returned to the OR x2 (02/04 and 02/05) for irrigation and debridement of fasciotomy wounds, however no focal source of bleeding was identified. He was transferred to the SICU 02/05 after L thigh wound vac filled with alexsandra blood and hgb dropped to 4.6 despite 6U pRBC. He went to IR for embolization of SGA pseudoaneurysm and to the OR for hematoma washout on 02/06. He returned to the OR for washout and debridement again on 02/08 and 02/09. He was subsequently lateralized to the ACS service and transferred to floor status on 02/10. His hospital course has also been notable for asymptomatic COVID-19 infection, C. difficile infection, transaminitis most likely from ischemic hepatitis, and bilateral globus pallidus infarctions (possibly due to toxic metabolic insult). Procedures: 01/23: L thigh fasciotomy, L lower leg fasciotomy, L buttock fasciotomy, L forearm fasciotomy 01/26: Debridements and wound vac change 01/29: Debridement of fasciotomies, closure of L lower leg fasciotomy, closure of dorsal forearm fasciotomy, partial closure L thigh fasciotomy 01/31: Debridement and wound vac change 02/02: Debridement and wound vac change 02/04: Debridement and wound vac change 02/05: Debridement and wound vac change, 02/06: IR embolization of SGA pseudoaneurysm 02/06: LLE hematoma evacuation and washout 02/08: washout and debridement LLE, vac change LUE 02/09: washout and debridement LLE with vac placement 02/11: washout and vac change, LLE and LUE 02/13: washout and vac change, LLE and LUE 02/15: washout and vac change, LLE and LUE, possible drainage of L gluteal abscess 02/19: washout and vac change, LLE and LUE 02/22: washout and vac change, LLE and LUE 02/24: washout and vac change, LLE and LUE 02/26: washout and vac change, LLE and LUE 03/01: washout and vac change, LLE and LUE 03/03: washout and vac change, LLE and LUE 03/05: vac change at bedside, LLE and LUE w/ cultures 03/07: vac change at bedside, LLE and LUE 03/08: vac change at bedside, LLE and LUE 03/10: OR for skin grafting of LUE and LLE from R-sided donor site 03/13: OR for skin graft dressing change for LUE and LLE 03/15: OR for skin graft dressing change for LUE and LLE Subjective Interval Events: - Now off of bedrest as of 03/15. - D/c'd antibiotics yesterday (03/16); restarted IV Vanc and Meropenem (to be continued to 03/19) and start PO Vanc when IV antibiotics finish (until 03/26) as recommended by ID - Weaning HAND STRIPER (dilaudid) with the plan to d/c it tomorrow - Dressing change at bedside today by Dr. Chatterjee - Nutrition consult: d/c low phosphorus diet and start high calorie/protein diet with TUMS added to meals (continues to have high phosphorous) - BIT saw him yesterday (03/16): Peer support during remainder of stay. - PT/OT saw him yesterday (03/16): Recommend d/c to acute care rehab once medically cleared. Objective Vitals: Last Value Range last 24 hrs Temperature Temp: 36.9 ??C (98.4 ??F) Temp: [36.8 ??C (98.2 ??F)-37.1 ??C (98.7 ??F)] Heart Rate Heart Rate: (!) 114 Heart Rate: -- Blood Pressure BP: (!) 140/99 BP: (134-149)/(92-103) Respiratory Rate Resp: 17 Resp: [16-18] SpO2 SpO2: 100 % SpO2: [95 %-100 %] O2 Device O2 Device: None (Room air) Intake/Output: 03/16 0701 - 03/17 0700 In: 3135 [P.O.:2820; I.V.:315] Out: 4975 [Urine:4975] Physical Exam: GEN: resting comfortably in bed, NAD HEENT: normocephalic, atraumatic CHEST: In no respiratory distress on RA CV: Regular rate, well perfused ABD: soft, nontender, nondistended EXTR: LLE lateral thigh fasciotomy wound and LUE wound redressed at bedside, no purulent drainage orexcessive erythema, sites intact SKIN: WWP NEURO: Moving all extremities equally Labs: No results for input(s): WBC, HGB, HCT, PLATELET, PT, INR, PTT in the last 72 hours. No results for input(s): NA, K, CL, CO2, BUN, CREATININE, GLUCOSE, CALCIUM, MAGNESIUM, PHOS in the last 72 hours. C Diff Screen Date Value Ref Range Status 02/01/2022 Positive (A) Negative Final Comment: PCR Pos C. diff Positive (GDH positive, toxin antigen negative, toxin PCR positive) DNA from a toxigenic strain of C. difficile was detected, although the free toxin itself was not detected. These results cannot distinguish between colonization and infection. They must be interpreted within the patient???s overall clinical context. Consider other causes for diarrhea or the presence of a non-toxigenic strain. Patient needs to remain on Soap & Water Contact Precautions until discharge or approval by Infection Prevention. Abscess/Wound Aspirate Culture Date Value Ref Range Status 02/19/2022 (A) Final Rare Serratia marcescens Rare Pseudomonas aeruginosa 02/17/2022 (A) Final One colony of Serratia marcescens : Susceptibilities previously reported One colony of Pseudomonas aeruginosa : Susceptibilities previously reported 02/17/2022 (A) Final One colony of Serratia marcescens : Susceptibilities previously reported Anaerobic Culture Date Value Ref Range Status 02/19/2022 No anaerobic organisms isolated Final 02/17/2022 No anaerobic organisms isolated Final 02/17/2022 No anaerobic organisms isolated Final Tissue Culture Date Value Ref Range Status 02/09/2022 (A) Final Few Pseudomonas aeruginosa Few Serratia marcescens Susceptibilities previously reported Blood Culture Date Value Ref Range Status 02/06/2022 No growth at 5 days. Final 02/05/2022 No growth at 5 days. Final 02/01/2022 No growth at 5 days. Final Studies: No recent imaging Assessment and Plan Alix Holland is a 31 y.o. male with HTN, angioedema requiring intubation 04/21, GERD, gastritis, esophagitis, urachal cyst, and polysubstance use (EtOH, cocaine, heroin) who was admitted 01/23/2022 forcompartment syndrome and rhabdomyalysis after being found down. He is now s/p multiple fasciotomies and debridements of LLE and L forearm. Mr. Holland has had a prolonged, complicated hospital course which has been significant for renal replacement therapy secondary to rhabdomyolysis, ICU admissions, multiple debridements, and persistent transfusion requirement. He was transferred to the floor 02/10 and appears to be slowly progressing towards recovery. His wound cultures grew Pseudomonas and Serratia for which he has been covered with by Zosyn. ID consulted 02/11 and Zosyn discontinued and transitioned to cefepime. He also has C. difficile for which he is being treated with p.o. vancomycin which will continue for 10 days (until 03/01/22) following disco ntinuation of cefepime. His leukocytosis has improved. ID was again consulted on 02/22 for cefepime-resistant pseudomonas. Despite the resistence, Mr. Holland has been afebrile and without a leukocytosis so the decision was made to stop cefepime and flagyl. His last dialysis was 02/18/22, central access remains in place due to lack of peripheral access options. His Cr continues to improve, and his urine output remains high. Given his improved renal function, Nephrology recommended stopping weekly EPO, resuming a normal diet, starting vitamin D supplementation and a normal multivitamin. Cultures from 03/05 demonstrated GPCs and GNRs, pseudomonas and speciated MRSA. The patient went to the OR on 03/13 and it was observed that there was 100% take of the LUE and LLE skin graft. There is still the concern for pseudomonal infection which could adversely affect the skingraft. ID was re-engaged and left extensive recommendations that have been followed. The patient returned to the OR on 03/15 for dressing change. His activity status remains as activity as tolerated. Monica OT saw him yesterday (03/16) and suggested discharge to acute care rehab when medically cleared; case management has contacted two facilities. He had his dressings changed at the bedside today with Dr. Chatterjee who used bacitracin; plan to do another dressing change tomorrow with silver gel. HAND STRIPER will continue to be weaned. Diet was changed from low phosphorus to high calorie/protein with the addition of TUMS at meals. Additionally, his antibiotics were restarted today; he will complete a course of IV Vancomycin and Meropenem (ends 03/19) before switching to PO Vancomycin (ends 03/26). Plan: Neuro: #Pain - [place] PO Tylenol 1000 mg q8h - dilaudid HAND STRIPER, weaning - PO Oxycodone 10-15 PRN Q4 #Polysubstance abuse, found down following fentanyl ingestion, Toxic metabolic encephalopathy, bilateral globus pallidum infarcts - Thiamine, folate supplementation - Q shift neurovascular checks - Neurology consulted 01/23, re-consulted 02/16, no changes to plan - Expected BG evolution on MRI. No further w/u - Re-consult neuro closer to d/c for EMG/NCS testing for peripheral neuropathy Psych: - Seen on 03/16: RC will continue to follow patient for duration of admission. He has taken some resources but has not set up a formal recovery plan. - BIT consulted on 03/17 to discuss induction of suboxone; they plan to follow up with patient CV: #Persistent tachycardia, likely d/t increased metabolic demand from wounds and infections - Amlodipine 10mg daily Resp: Encourage IS, OOB GI: #Bowel reg Marinol 10mg BID, Lactulose BID PRN, Scheduled senna and colace #Nausea - Zofran PRN - compazine PRN FEN: #Diet - High calorie/protein - Vitamin C, Marinol BID - TUMS Renal/: - 03/01: Ferritin 693, Total Fe 21, TIBC 185. Nephrology signed off. S/p IV iron. Oral iron supplements - Per nephrology, begin IV iron after Vancomycin course completed 03/01/22 (02/25), Stop weekly EPO (note 02/27), start vitamin D supplementation, start regular multivitamin. Vit D level in mid-May. - Will need CKD clinic follow-up - Daily weights 77.4 Heme: JAVON. Transfuse for Hgb < 7. ID: C diff precautions for 4 weeks until Mar 29. - ID consulted 02/11, 02/17, 02/22, 03/13 - S/p PO Vanc BID for c diff (02/01- 03/01/22). - S/p Cefepime (02/11 - 02/22) - can d/c due to antibiotic resistance - S/p IV flagyl q8h for c diff (02/16 - 02/22) - S/p Unasyn (01/23-01/26 and 01/29-02/01), Cefazolin (01/26-01/29 and 02/01-02/07), Zosyn (02/08-02/11) - 02/15 L Thigh wound culture: Pseudomonas, Serratia, Gram positive cocci - 02/08 and 02/09 wound cx: Pseudomonas, serratia - 03/12 - 03/13 : zosyn - 03/05 wound cultures: pseudomonas and MRSA. ID Recommendations on 03/13: new wound cultures on 03/14 from wounds, contacting the lab to have them assess the sensitivities of the 03/05 culture to ceftazidime-avibactam and ceftolozane- tazobactam (expected results 03/15-03/17), starting on PO vanc at 125mg BID, Vancomycin IV 15mg/kg per Pharmacy and Meropenam 1g Q8H (Ends 03/19), Vancomycin PO 1g q8hrs (starts03/19, ends 03/26), Endo: JAVON MSK: - s/p multiple fasciotomies, OR debridements, and wound vac changes - Plastics consulted 02/04, okay for primary team to close wounds - Ortho consulted 02/17, signed off, weight bearing status to be determined by primary team - Working with PT/OT 2-4x/week Prophy: Resp: OOB, IS; DVT: SQH TID, IPCs, OOB Lines/Drains/Tubes/Airways: Patient Lines/Drains/Airways Status Active Tubes/Lines/Drains Name Placement date Placement time Site Days PICC Line - Double Lumen 03/03/22 1449 basilic vein (medial side of arm), right 5 Fr 03/03/22 1449 -- 14 Dispo: Floor status; PT/OT consulted, recommend acute rehab--Brick Catcher sent requests to 2 locations. Code Status: Attempt Cardiopulmonary Resuscitation - Inpatient Note written in collaboration with Sivakumar Pierre, MS3. Batsheva Hill MD Resident, General Surgery 03/17/22 Attending Addendum I have seen and examined the patient and reviewed the history documented above and I agree with the details as written. I have reviewed the laboratory data and viewed the pertinent imaging. The assessment and plan were formulated in discussion with me and I agree with them as documented. Skin grafts with good take, continue dressing changes and packing of upper thigh wound PT/OT and dispo planning DAmi Chatterjee MD Sivakumar Trevino PTA - 03/16/2022 3:31 PM EDT Physical Therapy Note Treatment Number PT: 7 Patient profile: Alix Holland is a 31 y.o.??gentleman admitted to the MICU on 01/23/22 after being found down and encephalopathic by family with verbal reports of Fentanyl ingestion; this was followedby witnessed in-hospital [place] cardiac arrest at the receiving ED (hyperkalemia at the time). He was also noted to have severe rhabdomyolysis with compartment syndrome and resultant ALTHEA. Now s/p??fasciotomies of L thigh, calf forearm and wrist (01/23) and??I+D LUE, LLE (01/26). Previously completed treatment??for aspiration pneumonia versus MSSA CAP. He was also found to have asymptomatic COVID19 infection in admission testing. Scattered punctate infarcts on MR brain and CT COW/carotids from 01/24/22 readas normal.??Neurology believes??MRI findings are related to toxometabolic issues rather than a stroke.??Extubated PM of 01/26/22??and remains on room air. Interval History: Per Gen Surg note 03/16/22: - Now off of bedrest - Dressing change in the OR yesterday - Now off of antibiotics - Weaning HAND STRIPER (dilaudid) Social History: Home setup: Pt lives with his father in a two level home with a couple BERNADETTE. Pt's bedroom and bathroom are on the first floor. The bathroom has a tub shower. 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 Enjoys hunting and fishing. DME: none Precautions/Special Considerations: fall risk; soap and water contact Mobility and Positioning Recommendations: ?? Stand step transfer with 2 assist and FWW ?? Encourage transfers to commode vs bedpan for toileting ?? Please encourage up to chair or bed chair position throughout the day as able. Subjective: It hurts to bend my leg further Objective: Patient seen for physical therapy and demonstrated the following: Pain: C/o mild-moderate L hip pain with L hip flexion Vitals: Tachycardic upon transitioning to EOB and with mobility, HR up to the low 130s Bed mobility: Supine>Short Sitting: HOB elevated ~30*. Was able to adduct the L hip to the EOB, then use the RLE to carry it the rest of the way to the floor. CGA with vc Transfers: Sit<>Stand: Ht of bed elevated, modAx2 with FWW and gait belt Stand-Step: Naye with FWW and Gait belt Gait: Distance: 3' x2 Level of Assist: Naye Assistive Device: FWW Gait Mechanics: hip hiking to advance the LLE with nearly absent heel strike and significiant foot drop. Hyperextending the L knee and ligament hanging during stance phase of the LLE. Therapeutic Exercise: AAROM L Heel Slides x10, limited by L hip pain Unilateral R Bridge x10 Attempted SAQ LLU, unsuccessful Manual L gastroc stretch Demonstrated and had pt perform gastroc stretch with leg balance sheet analyst MMT L Gastroc 2-/5 Balance: Seated Static: Supervision Seated Dyn: NT Standing Static: Good with FWW Dyn: Fair ?? Education: patient has been educated on Bed mobility, Positioning, Safety, Precautions/protocol, Role of therapy and Discharge planning and verbalizes understanding but will benefit from ongoing reinforcement Patient status, treatment, and mobility recommendations discussed with nursing. Pt left supine in bed with call starks within reach, all needs met and family present following visit. Assessment: Pt seen today for physical therapy treatment per POC. Pt presented to physical therapy without c/o pain and willing to participate. Pt demonstrated decreased strength from bedrest, more so on the left than right. Pt requiring less assistance with bed mobility. Pt also tolerated open chain exercises, and took a few steps. Pt limited in distance due to his HAND STRIPER pump, but once DCd pt could likely mobilize further. Pt's gait pattern however has several deviations due to weakness in the limb. Pt will benefit from ongoing physical therapy to address the above impairments and facilitate return to PLOF. Discharge Recommendations: Based on the current findings, Anticipated Discharge Disposition (PT): acute rehabilitation facilitywhen medically ready for hospital discharge. Consult Recommendations: No other consults recommended at this time. Equipment needs: TBD, anticipate d/c to rehab Physical Therapy Goals: To be achieved by 02/19/22: ?? 1. Pt. to demonstrate knowledge of safety limitations and precautions and will appropriately requestassistance for functional activities and to mobilize. Met 2. Pt. to demonstrate understanding of appropriate exercises. Met 3. Pt. to perform bed mobility with supervision using bed features or adaptive equipment as needed. Met 4. Pt. to perform sit to stand and stand pivot transfers with min A using a front wheeled walker. ONGOING 5. Pt. to ambulate 25 feet with min A using a front wheeled walker. ONGOING 6. Pt will stand with UE support and min A x2 minutes while participating in functional tasks. ONGOING 7. Pt to propel wheelchair x 50 ft. using R UE/LE with supervision. ONGOING 8. Pt will tolerate progression towards upright with stable vital signs. ONGOING Plan: Therapy Frequency (PT): 2-4 times/wk for therapy including balance training, bed mobility training, gait training, patient/family education, strengthening, transfer training and wheelchair managment/propulsion training. Total Minutes, Physical Therapy: 40 ([id number]) Billing Code: DEACON SAMUELSSVETLANA Pager: [phone] Physical Therapy Inpatient Rehabilitation Department Jairo Kirkland MD - 03/16/2022 2:15 PM EDT CHIEF COMPLAINT F/u for skin graft complicated by superficial skin lesion Brief summary: Alix Holland is a 31 y.o. male is a 31 year old male with history of essential hypertension, angioedema, esophagitis, polysubstance use who was admitted on 01/23/2022 s/p [place] arrest after fentanyl ingestion. Patient had left forearm and left thigh compartment syndrome with rhabdomyolysis with subsequent renal failure requiring CVVH. Patient required multiple fasciotomies and operative cultures positive for Serratia and Pseudomonas. SUBJECTIVE Feels somewhat better Has not gotten up and walked much today but was transferred to the chair for a period of time 10/10 left leg pain is similar to yesterday, associated with stiffness, worse when moving around REVIEW OF SYSTEMS Const: No fevers, chills, or sweats Neuro: No tingling, no headache, no dizziness GI: No nausea, or vomiting, +diarrhea on stool softeners OBJECTIVE I reviewed vital signs from the past 24 hours: Afebrile, sinus tachycardia, blood pressure 149/103, on room air Physical Exam Vitals and nursing note reviewed. Constitutional: General: He is not in acute distress. Appearance: Normal appearance. HENT: Head: Normocephalic and atraumatic. Right Ear: External ear normal. Left Ear: External ear normal. Nose: Nose normal. Mouth/Throat: Mouth: Mucous membranes are moist. Eyes: Extraocular Movements: Extraocular movements intact. Pupils: Pupils are equal, round, and reactive to light. Cardiovascular: Rate and Rhythm: Normal rate and regular rhythm. Heart sounds: Normal heart sounds. No murmur heard. Pulmonary: Effort: Pulmonary effort is normal. No respiratory distress. Breath sounds: Normal breath sounds. No wheezing. Abdominal: General: Bowel sounds are normal. There is no distension. Palpations: Abdomen is soft. Tenderness: There is no abdominal tenderness. Musculoskeletal: Right lower leg: No edema. Left lower leg: No edema. Skin: General: Skin is warm. Comments: Left UE in dressing Neurological: General: No focal deficit present. Mental Status: He is alert and oriented to person, place, and time. Psychiatric: Mood and Affect: Mood normal. I have reviewed Labs: Vancomycin trough 16.1 Antibiotics: Meropenem 1 g every 8 hours started 03/13/2022 Vancomycin 1 g every 8 hours started 03/13/2022 Microbiology: Microbiology: 01/23: blood cx*2 NG 01/23:Tracheal Aspirate: MSSA 01/28: blood cx*1 NG 02/01: blood cx*2 NG 02/01: C diff screen neg 02/04: urine GC, trichomonas screen: neg 02/05: ??blood cx*1 NG 02/06: ??blood cx*1 NG 02/08 wound cxs??Left thigh #1&2: Pseudomonas??(multIS), serratia??(multi S except for tetracycline); GS: GNR 02/09 wound cx: Pseudomonas??(multIS), serratia??(multi S except for tetracycline); GS: GNR 02/15:??Intraoperative cultures with Pseudomonas and Serratia 02/19 wound culture Left thigh:??Pseudomonas and Serratia 03/05 left thigh: MRSA, PSA R to ceftazidime/cefepime, R to Zosyn, S to??meropenem and quinolones EKG/echo: Last EKG shows Qtc of 431 msec Imaging: External records in - [facility]: Yes - CareEverywhere: No - Paper records: No I have independently visualized and interpreted the following studies and my comments are EKG: Yes Imaging: No imaging recently ASSESSMENT Compartment syndrome status post numerous fasciotomies complicated by superficial skin infection(status post skin grafting) Admitted with rhabdomyolysis leading to compartment syndrome requiring multiple fasciotomies Greenish discoloration of the wound Culture positive for MRSA and Pseudomonas, previously had Serratia and Pseudomonas Meropenem and vancomycin started empirically I&D performed, no culture sent PLAN Continue vancomycin and meropenem IV for 7 days in total (end date 03/19/2022) Continue oral vancomycin for 7 days after IV antibiotics are stopped (end date 03/26/2022) ID team will sign off please call us with questions I have discussed this case with Jairo Felix MD Infectious Diseases Fellow- [id number] Pager: [phone] 03/16/2022 2:15 PM ID Attending I have seen the patient in person and reviewed the fellow's above history and I agree with the details as written. The assessment and plan were formulated in discussion with me and I agree with them asdocumented. Jairo Kirkland MD Staff Physician Infectious Disease [facility] [phone] or [email or web address] 03/16/22, 6:03 PM Tasha Matthews OTA - 03/16/2022 2:15 PM EDT Occupational Therapy Treatment Note Treatment Number OT: 8 Patient Dx: Per note: Alix Holland is a 31 y.o. male with HTN, angioedema requiring intubation 04/21, GERD, gastritis, esophagitis, urachal cyst, and polysubstance use (EtOH, cocaine, heroin) who was admitted to the MICU 01/23/2022 s/p [place] arrest in the setting of being found down following fentanyloverdose and developing L forearm and L thigh compartment syndrome (s/p L forearm, L buttock, and L thigh fasciotomies) w/ subsequent rhabdomyolysis, renal failure, and hyperkalemia which required CVVH. ?? He was transitioned to iHD and transferred to floor status 02/02, however he had persistent daily transfusion requirement from ongoing wound vac bleeding and returned to the OR x2 (02/04 and 02/05) for irrigation and debridement of fasciotomy wounds, however no focal source of bleeding was identified. 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 He returned to the OR for washout and debridement again on 02/08 and 02/09. He was subsequently lateralized to the ACS service and transferred to floor status on 02/10. ?? His hospital course has also been notable for asymptomatic COVID-19 infection, C. 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 Procedures: 01/23: L thigh fasciotomy, L lower leg fasciotomy, L buttock fasciotomy, L forearm fasciotomy 01/26: Debridements and wound vac change 01/29: Debridement of fasciotomies, closure of L lower leg fasciotomy, closure of dorsal forearm fasciotomy, partial closure L thigh fasciotomy 01/31: Debridement and wound vac change 02/02: Debridement and wound vac change 02/04: Debridement and wound vac change 02/05: Debridement and wound vac change, 02/06:??IR embolization of SGA pseudoaneurysm 02/06:??LLE hematoma evacuation and washout 02/08:??washout and debridement LLE, vac change LUE 02/09:??washout and debridement LLE with vac placement 02/11: washout and vac change, LLE and LUE 02/13: washout and vac change, LLE and LUE 02/15: washout and vac change, LLE and LUE, possible drainage of L gluteal abscess 02/19: washout and vac change, LLE and LUE 02/22: washout and vac change, LLE and LUE ?? Social History: Patient lives in [place], [place] with his dad. Home Setup: 2 [address], 2 level home, bedroom on 1st level, bathroom available on 1st level, has a tub shower downstairs. DME: none Baseline ADL/Mobility: Pt reports he was independent w/ ADL's and IADL's, had worked for a [employer]. He enjoys hunting and fishing. He reports he likes [employer] music ?? Interval History: Pt to OR last week for LUE and LLE grafts. Per MD Note 03/16 - Now off of bedrest - Dressing change in the OR yesterday - Now off of antibiotics - Weaning HAND STRIPER (dilaudid) Precautions/Special Considerations: SOAP/WATER; fall risk, LUE/LLE WBAT, L forearm and L thigh grafts, HAND STRIPER S: I need some help with that regarding progressing LLE to edge of bed O: Patient seen for skilled OT treatment, and demonstrated the following: ?? Cognition: ?? Behavior / Mood: awake, alert, flat affect, agreeable ?? Alert and oriented to: person, date, place, situation ?? Follows commands: 1 step, 100% of the time, requires increased time and requires repetition ?? Attention: WFL ?? Safety awareness: decreased insight into deficits Self-care/Functional Mobility: ?? Resting in bed, agreeable to OT ?? PT performed BLE exercises while in bed ?? Supine to sit with CGA for trunk. Able to progress BLE's off edge of bed. Used hook lying to progress LLE off EOB ?? Performed self-care tasks while seated edge of bed with setup assist ?? Performed sit to stand with min A x2 from elevated surface using gait belt ?? Ambulated a few steps forward and back with min A x2; rest break taken ?? Sit to stand with min A x2 from bed to walker ?? Stand step transfer from bed to recliner chair with min A x2 and gait belt ?? Pt left resting in recliner chair at end of session with all needs within reach; RN aware Vitals: Stable on RA. HR up to 140's with activity. Recovers to 120's with rest break Pain: No complaints throughout session Education: Pt/family/caregiver education ongoing regarding: Role of occupational therapy/rehabilitation, ADL, Exercise, Positioning, Precautions/Protocol, Functional Mobility, Balance, Recommendations and Discharge planning. Staff Communication: Patient status, treatment, and mobility recommendations discussed with nursing/other staff ASSESSMENT: Pt seen for continuation of OT plan of care. Pt off strict bedrest as of today 03/16. Performed bed mobility, edge of bed self-care tasks, sit to stands and functional mob/ transfers. Pt wasable to progress LLE off edge of bed without assistance today and was able to perform oral care withLUE vs RUE today. Pt continues to be tachy with activity, recovers with rest breaks. Pt will requirerehab when medically ready to maximize independence in ADLs/IADLs and safety. Anticipated Discharge Disposition (OT): acute rehabilitation facility Equipment Needs Upon Discharge (OT): to be determined Other Recommendations: ?? Utilize upright chair position using bed features or transfer to recliner chair as appropriate with mechanical lift (Once bedrest orders have been lifted) ?? Encourage participation in ADL's by providing set up A on tray table and physical assist only as needed. ?? Monitor ROM of R fingers (encourage active and passive flexion and extension of fingers) General Recommendations for Patients Commode/bathroom for toileting when able to do so safely Utilize upright chair position using bed features or transfer to recliner chair as appropriate. Encourage participation in ADL's by providing set up A on tray table and physical assist only as needed Lights on blinds open during day Utilize upright chair position using bed features or transfer to recliner chair as appropriate with mechanical lift (Once bedrest orders have been lifted) Encourage participation in ADL's by providing set up A on tray table and physical assist only as needed. Monitor ROM of R fingers (encourage active and passive flexion and extension of fingers) Goals to be achieved by 03/08/22: -Patient will don/doff UB clothing with supervision seated -Patient will don/doff LB clothing with Min A, seated, with AE, as needed -Patient will complete toileting tasks (hygiene, clothing management, transfers) with Min A and withAE, as needed -Patient will ambulate household distances with CGA and with AD, as needed -Patient will complete UB/LB sponge bathing tasks with supervision, while seated with AE, as needed -Patient will complete grooming task (comb hair, brush teeth, shave) with supervision Therapy Frequency (OT): 2-4 times/wk Total Minutes, Occupational Therapy: 30 ([facility] x2 [phone]) Pager: [phone] PEG Cole Occupational Therapy Rehabilitation Department Kaylah Jang, RD - 03/16/2022 8:53 AM EDT Nutrition Progress Note Alix Crooks or SEE is a 31 y.o. male ??with history of polysubstance abuse currently admitted for fentanyl OD with LUE and LLE compartment syndrome s/p L forearm, L thigh/buttock and L lower leg fasciotomies, rhabdomyolysis, ARF and hyperkalemic [place] arrest (on CVVH) with recurrent L thigh fasciotomy wound bleeding and hemorrhagic shock now 3 days s/p IR embolization of L circumflex iliac artery, Left internal iliac gluteal arterial branches, and left superior gluteal artery via R [employer] access. Reason for intervention: Follow up Nutrition Recommendations: Regular diet ; enc high protein high calorie Given tendency toward intake < est needs, suggest omit low phosphorus restriction and give TUMs w/ meals Limit NPO to periods to only when necessary to avoid missing nutrition windows Encourage pt to continue double portions protein and milk with meals Discussed above w/ E. Sergio HARTLEY #[id number] Active Orders Diet High Protein - High Calorie diet Low Phosphorus Frequency: Effective Now Number of Occurrences: Until Specified Nourishments Adult diet Oral Supplements Other; Ensure Compact Frequency: Effective Now Number of Occurrences: Until Specified Lab Results Component Value Date NA 139 03/13/2022 K 3.9 03/13/2022 CL 101 03/13/2022 CO2 25 03/13/2022 BUN 12 03/13/2022 CREATININE 0.65 (L) 03/13/2022 ESTGFR 130 03/13/2022 MAGNESIUM 0.70 03/13/2022 CALCIUM 9.6 03/13/2022 PHOS 4.9 (H) 03/13/2022 AST 21 02/05/2022 ALT <5 02/05/2022 ALKPHOS 74 02/05/2022 BILITOT 0.4 02/05/2022 BILIDIR 0.3 02/05/2022 TRIG 359 01/26/2022 CRP <3.0 04/26/2021 [id number] 535 02/03/2022 25OHVITD 12 (L) 02/19/2022 SFOLATE 3.9 (L) 02/03/2022 IRON 21 (L) 03/01/2022 No results found for: POCGLU Skin Status: Shift Pressure Injury Prevention Occiput: No Injury Thoracic Spine: No Injury Sacral: Redness, Blanchable Ischial - left: No Injury Ischial - right: No Injury Heel - left: No Injury Heel - right: No Injury Elbow - left: No Injury Elbow - right: No Injury Device Sites: O2 sat monitor, SCD's/venodynes, Prevalon Boots Other Sites: PICC Relevant medications: Marinol, Vitamin B1, folic acid, thiamine, Thera M Last Bowel Movement: 03/16/22 Admit Weight: 101.8 kg Estimated body mass index is 22.33 kg/m?? as calculated from the following: Height as of this encounter: 188 cm (6' 2). Weight as of this encounter: 78.9 kg (173 lb 15.1 oz). [place] Body Weight: 80.9kg- [place] Usual Body Weight: Pt reports 220-225 lb ( 100-102 kg) Wt Readings from Last 10 Encounters: 03/13/22 78.9 kg (173 lb 15.1 oz) 04/28/21 98.1 kg (216 lb 4.3 oz) 02/22/19 108.9 kg (240 lb) 05/03/18 113.4 kg (250 lb) 04/27/13 90.7 kg (200 lb) Patient Vitals for the past 168 hrs: Weight 03/13/22 0518 78.9 kg (173 lb 15.1 oz) 03/12/22 0500 77.5 kg (170 lb 13.7 oz) Assessment: Based on IBW 80.9kg Estimated needs: Calories: 5455-2667 (25-30kcal/kg) Protein: 120 grams (1.5 g/kg IBW) Nutrition Focused Physical Exam (NFPE): Performed on 03/01/22. Subcutaneous fat loss at Orbital region: Moderate Upper arm region (triceps/biceps): Mild Thoracic and lumbar region (ribs, lower back and maxillary line): Not assessed Lean muscle loss to Hoahaoism region (temporalis muscle): Moderate Clavicle bone region (pectoralis major): None present Dorsal hand (interosseous muscle): None present Shoulder (deltoid): Mild Scapular bone region (latissimus dorsi, trapezius muscles): Not assessed Thigh region (quadriceps muscle): Mild Posterior calf region (gastrocnemius muscle): Not assessed- in wraps Fluid accumulation: Not assessed- Nutrition intake and intake history/Interview: 03/16/22: Pt continue t miss many meals per week but vacs are of now so hopeful for fewer missed meals. Pt with elevated serum phos so low phos diet added which limits his ability to order protein rich foods. Give limited intake, suggest adding TUMs at meals and allow pt to order phosphorus rich foods.Pt seen at lunch eating well. Wt has been stable X 10 days. Continue to encourage protein intake 2/2 skin grafts. 03/08/22:Max is resting in bed, he did not eat his lunch today, but reports a good appetite and intakes and just did not care for his lunch today, declines offer and encouragement for any other items. His orders in past few days are adequate to meet his estimated needs. Encourage continued ordering thisway, again endorsed importance of good nutrition. Protein-calorie Malnutrition: < or equal to 50% of estimated energy requirement for > or equalto 5 days and >2% weight loss in 1 week is consistent with severe protein-calorie malnutrition inthe setting of acute illness or injury (BUSTER Pickens J Parenteral Enteral Nutr. 2011; 36(3): 273-83) Nutrition to continue to follow up while inpatient THANKS KAYLAH JANG RD Pager #:[phone] Jeanette Chatterjee MD - 03/16/2022 5:38 AM EDT Acute Care Surgery Daily Progress Note Admission Date: 01/23/2022 ID: Alix Holland is a 31 y.o. male with HTN, angioedema requiring intubation 04/21, GERD, gastritis, esophagitis, urachal cyst, and polysubstance use (EtOH, cocaine, heroin) who was admitted to the MICU 01/23/2022 s/p [place] arrest in the setting of being found down following fentanyl overdose and developing L forearm and L thigh compartment syndrome (s/p L forearm, L buttock, and L thigh fasciotomies) w/ subsequent rhabdomyolysis, renal failure, and hyperkalemia which required CVVH. He was transitioned to iHD and transferred to floor status 02/02, however he had persistent daily transfusion requirement from ongoing wound vac bleeding and returned to the OR x2 (02/04 and 02/05) for irrigation and debridement of fasciotomy wounds, however no focal source of bleeding was identified. He was transferred to the SICU 02/05 after L thigh wound vac filled with alexsandra blood and hgb dropped to 4.6 despite 6U pRBC. He went to IR for embolization of SGA pseudoaneurysm and to the OR for hematoma washout on 02/06. He returned to the OR for washout and debridement again on 02/08 and 02/09. He was subsequently lateralized to the ACS service and transferred to floor status on 02/10. His hospital course has also been notable for asymptomatic COVID-19 infection, C. 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 Procedures: 01/23: L thigh fasciotomy, L lower leg fasciotomy, L buttock fasciotomy, L forearm fasciotomy 01/26: Debridements and wound vac change 01/29: Debridement of fasciotomies, closure of L lower leg fasciotomy, closure of dorsal forearm fasciotomy, partial closure L thigh fasciotomy 01/31: Debridement and wound vac change 02/02: Debridement and wound vac change 02/04: Debridement and wound vac change 02/05: Debridement and wound vac change, 02/06: IR embolization of SGA pseudoaneurysm 02/06: LLE hematoma evacuation and washout 02/08: washout and debridement LLE, vac change LUE 02/09: washout and debridement LLE with vac placement 02/11: washout and vac change, LLE and LUE 02/13: washout and vac change, LLE and LUE 02/15: washout and vac change, LLE and LUE, possible drainage of L gluteal abscess 02/19: washout and vac change, LLE and LUE 02/22: washout and vac change, LLE and LUE 02/24: washout and vac change, LLE and LUE 02/26: washout and vac change, LLE and LUE 03/01: washout and vac change, LLE and LUE 03/03: washout and vac change, LLE and LUE 03/05: vac change at bedside, LLE and LUE w/ cultures 03/07: vac change at bedside, LLE and LUE 03/08: vac change at bedside, LLE and LUE 03/10: OR for skin grafting of LUE and LLE from R-sided donor site 03/13: OR for skin graft dressing change for LUE and LLE 03/15: OR for skin graft dressing change for LUE and LLE Subjective Interval Events: - Now off of bedrest - Dressing change in the OR yesterday - Now off of antibiotics - Weaning HAND STRIPER (dilaudid) Objective Vitals: Last Value Range last 24 hrs Temperature Temp: 36.6 ??C (97.9 ??F) Temp: [36.3 ??C (97.3 ??F)-37.3 ??C (99.1 ??F)] Heart Rate Heart Rate: (!) 114 Heart Rate: [97-114] Blood Pressure BP: (!) 139/96 BP: (115-141)/(78-98) Respiratory Rate Resp: 19 Resp: [12-19] SpO2 SpO2: 97 % SpO2: [93 %-100 %] O2 Device O2 Device: None (Room air) Intake/Output: 03/15 0701 - 03/16 0700 In: 2854 [P.O.:1770; I.V.:834] Out: 4701 [Urine:4700] Physical Exam: GEN: resting comfortably in bed, NAD HEENT: normocephalic, atraumatic CHEST: In no respiratory distress on RA CV: Regular rate, well perfused ABD: soft, nontender, nondistended EXTR: LLE lateral thigh fasciotomy wound and LUE wound redressed. No erythema. R thigh donor area covered in TAMIE bandage with minimal blood staining SKIN: WWP NEURO: Moving all extremities equally Labs: Recent Labs 03/13/22 0602 WBC 8.0 HGB 9.1* HCT 27.5* PLATELET 254 Recent Labs 03/13/22 0602 NA 139 K 3.9 CL 101 CO2 25 BUN 12 CREATININE 0.65* GLUCOSE 100 CALCIUM 9.6 MAGNESIUM 0.70 PHOS 4.9* C Diff Screen Date Value Ref Range Status 02/01/2022 Positive (A) Negative Final Comment: PCR Pos C. diff Positive (GDH positive, toxin antigen negative, toxin PCR positive) DNA from a toxigenic strain of C. difficile was detected, although the free toxin itself was not detected. These results cannot distinguish between colonization and infection. They must be interpreted within the patient???s overall clinical context. Consider other causes for diarrhea or the presence of a non-toxigenic strain. Patient needs to remain on Soap & Water Contact Precautions until discharge or approval by Infection Prevention. Abscess/Wound Aspirate Culture Date Value Ref Range Status 02/19/2022 (A) Final Rare Serratia marcescens Rare Pseudomonas aeruginosa 02/17/2022 (A) Final One colony of Serratia marcescens : Susceptibilities previously reported One colony of Pseudomonas aeruginosa : Susceptibilities previously reported 02/17/2022 (A) Final One colony of Serratia marcescens : Susceptibilities previously reported Anaerobic Culture Date Value Ref Range Status 02/19/2022 No anaerobic organisms isolated Final 02/17/2022 No anaerobic organisms isolated Final 02/17/2022 No anaerobic organisms isolated Final Tissue Culture Date Value Ref Range Status 02/09/2022 (A) Final Few Pseudomonas aeruginosa Few Serratia marcescens Susceptibilities previously reported Blood Culture Date Value Ref Range Status 02/06/2022 No growth at 5 days. Final 02/05/2022 No growth at 5 days. Final 02/01/2022 No growth at 5 days. Final Studies: No recent imaging Assessment and Plan Alix Holland is a 31 y.o. male with HTN, angioedema requiring intubation 04/21, GERD, gastritis, esophagitis, urachal cyst, and polysubstance use (EtOH, cocaine, heroin) who was admitted 01/23/2022 forcompartment syndrome and rhabdomyalysis after being found down. He is now s/p multiple fasciotomies and debridements of LLE and L forearm. Mr. Holland has had a prolonged, complicated hospital course which has been significant for renal replacement therapy secondary to rhabdomyolysis, ICU admissions, multiple debridements, and persistent transfusion requirement. He was transferred to the floor 02/10 and appears to be slowly progressing towards recovery. His wound cultures grew Pseudomonas and Serratia for which he has been covered with by Zosyn. ID consulted 02/11 and Zosyn discontinued and transitioned to cefepime. He also has C. difficile for which he is being treated with p.o. vancomycin which will continue for 10 days (until 03/01/22) following disco ntinuation of cefepime. His leukocytosis has improved. ID was again consulted on 02/22 for cefepime-resistant pseudomonas. Despite the resistence, Mr. Holland has been afebrile and without a leukocytosis so the decision was made to stop cefepime and flagyl. His last dialysis was 02/18/22, central access remains in place due to lack of peripheral access options. His Cr continues to improve, and his urine output remains high. Given his improved renal function, Nephrology recommended stopping weekly EPO, resuming a normal diet, starting vitamin D supplementation and a normal multivitamin. Cultures from 03/05 demonstrated GPCs and GNRs, pseudomonas and speciated MRSA. The patient went to the OR on 03/13 and it was observed that there was 100% take of the LUE and LLE skin graft. There is still the concern for pseudomonal infection which could adversely affect the skingraft. ID was re-engaged and left extensive recommendations that have been followed. The patient returned to the OR on 03/15 for dressing change, now off IV vancomycin and meropenem (ended 03/15). At that time his activity changed from bedrest to activity as tolerated. PT and OT to see him either today or tomorrow for recommendations. Their notes will be sent by the [facility] to the rehab facilities. Will likely have dressing change tomorrow. Currently weaning his dilaudid HAND STRIPER. Plan: Neuro: #Pain - AMERICA PO Tylenol 1000 mg q8h - dilaudid HAND STRIPER, weaning - PO Oxycodone 10-15 PRN Q4 #Polysubstance abuse, found down following fentanyl ingestion, Toxic metabolic encephalopathy, bilateral globus pallidum infarcts - Thiamine, folate supplementation - Q shift neurovascular checks - Neurology consulted 01/23, re-consulted 02/16, no changes to plan - Expected BG evolution on MRI. No further w/u - Re-consult neuro closer to d/c for EMG/NCS testing for peripheral neuropathy Psych: - Seen on 03/16: RC will continue to follow patient for duration of admission. He has taken some resources but has not set up a formal recovery plan. CV: #Persistent tachycardia, likely d/t increased metabolic demand from wounds and infections - Amlodipine 10mg daily Resp: Encourage IS, OOB GI: #Bowel reg Marinol 10mg BID, Lactulose BID PRN, Scheduled senna and colace #Nausea - Zofran PRN - compazine PRN FEN: #Diet - low phosphorus diet - Vitamin C, Marinol BID Renal/: - 03/01: Ferritin 693, Total Fe 21, TIBC 185. Nephrology signed off. S/p IV iron. Oral iron supplements - Per nephrology, begin IV iron after Vancomycin course completed 03/01/22 (02/25), Stop weekly EPO (note 02/27), start vitamin D supplementation, start regular multivitamin. Vit D level in mid-May. - Will need CKD clinic follow-up - Daily weights 77.4 Heme: JAVON. Transfuse for Hgb < 7. ID: s/p antibiotics. C diff precautions for 4 weeks until Mar 29. - ID consulted 02/11, 02/17, 02/22, 03/13 - S/p PO Vanc BID for c diff (02/01- 03/01/22). - S/p Cefepime (02/11 - 02/22) - can d/c due to antibiotic resistance - S/p IV flagyl q8h for c diff (02/16 - 02/22) - S/p Unasyn (01/23-01/26 and 01/29-02/01), Cefazolin (01/26-01/29 and 02/01-02/07), Zosyn (02/08-02/11) - 02/15 L Thigh wound culture: Pseudomonas, Serratia, Gram positive cocci - 02/08 and 02/09 wound cx: Pseudomonas, serratia - 03/12 - 03/13 : zosyn - 03/05 wound cultures: pseudomonas and MRSA. ID Recommendations on 03/13: new wound cultures on 03/14 from wounds, contacting the lab to have them assess the sensitivities of the 03/05 culture to ceftazidime-avibactam and ceftolozane- tazobactam (expected results 03/15-03/17), starting on PO vanc at 125mg BID, Vancomycin IV 15mg/kg per Pharmacy and Meropenam 1g Q8H (ended 03/16). Endo: JAVON MSK: - s/p multiple fasciotomies, OR debridements, and wound vac changes - Plastics consulted 02/04, okay for primary team to close wounds - Ortho consulted 02/17, signed off, weight bearing status to be determined by primary team - Working with PT/OT 2-4x/week Prophy: Resp: OOB, IS; DVT: SQH TID, IPCs, OOB Lines/Drains/Tubes/Airways: Patient Lines/Drains/Airways Status Active Tubes/Lines/Drains Name Placement date Placement time Site Days PICC Line - Double Lumen 03/03/22 1449 basilic vein (medial side of arm), right 5 Fr 03/03/22 1449 -- 13 Dispo: Floor status; PT/OT consulted. OT 03/02 rec for acute rehab. Code Status: Attempt Cardiopulmonary Resuscitation - Inpatient Note written in collaboration with Sivakumar Pierre MS3. Batsheva Hill MD Resident, General Surgery 03/16/22 Attending Addendum I have seen and examined the patient and reviewed the history documented above and I agree with the details as written. I have reviewed the laboratory data and viewed the pertinent imaging. The assessment and plan were formulated in discussion with me and I agree with them as documented. Skin grafts with good take, continue dressing changes and packing of upper thigh wound PT/OT and dispo planning D. Aidan Chatterjee MD Nanette Holloway RN - 03/16/2022 3:40 AM EDT Assumed care of patient. Head to toe assessment remains unchanged from previous patient assessment coordinator. Patient states pain is 9/10, PRN medication given and pt repositioned. Dilaudid HAND STRIPER infusing with HAND STRIPER doseonly. No complaints of chest pain/SOB. No further needs at this time. Batsheva Hill MD - 03/15/2022 3:53 PM EDT Acute Care Surgery Daily Progress Note Admission Date: 01/23/2022 ID: Alix Holland is a 31 y.o. male with HTN, angioedema requiring intubation 04/21, GERD, gastritis, esophagitis, urachal cyst, and polysubstance use (EtOH, cocaine, heroin) who was admitted to the MICU 01/23/2022 s/p VT arrest in the setting of being found down following fentanyl overdose and developing L forearm and L thigh compartment syndrome (s/p L forearm, L buttock, and L thigh fasciotomies) w/ subsequent rhabdomyolysis, renal failure, and hyperkalemia which required CVVH. He was transitioned to iHD and transferred to floor status 02/02, however he had persistent daily transfusion requirement from ongoing wound vac bleeding and returned to the OR x2 (02/04 and 02/05) for irrigation and debridement of fasciotomy wounds, however no focal source of bleeding was identified. He was transferred to the SICU 02/05 after L thigh wound vac filled with alexsandra blood and hgb dropped to 4.6 despite 6U pRBC. He went to IR for embolization of SGA pseudoaneurysm and to the OR for hematoma washout on 02/06. He returned to the OR for washout and debridement again on 02/08 and 02/09. He was subsequently lateralized to the ACS service and transferred to floor status on 02/10. His hospital course has also been notable for asymptomatic COVID-19 infection, C. 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 Procedures: 01/23: L thigh fasciotomy, L lower leg fasciotomy, L buttock fasciotomy, L forearm fasciotomy 01/26: Debridements and wound vac change 01/29: Debridement of fasciotomies, closure of L lower leg fasciotomy, closure of dorsal forearm fasciotomy, partial closure L thigh fasciotomy 01/31: Debridement and wound vac change 02/02: Debridement and wound vac change 02/04: Debridement and wound vac change 02/05: Debridement and wound vac change, 02/06: IR embolization of SGA pseudoaneurysm 02/06: LLE hematoma evacuation and washout 02/08: washout and debridement LLE, vac change LUE 02/09: washout and debridement LLE with vac placement 02/11: washout and vac change, LLE and LUE 02/13: washout and vac change, LLE and LUE 02/15: washout and vac change, LLE and LUE, possible drainage of L gluteal abscess 02/19: washout and vac change, LLE and LUE 02/22: washout and vac change, LLE and LUE 02/24: washout and vac change, LLE and LUE 02/26: washout and vac change, LLE and LUE 03/01: washout and vac change, LLE and LUE 03/03: washout and vac change, LLE and LUE 03/05: vac change at bedside, LLE and LUE w/ cultures 03/07: vac change at bedside, LLE and LUE 03/08: vac change at bedside, LLE and LUE 03/10: OR for skin grafting of LUE and LLE from R-sided donor site 03/13: OR for skin graft dressing change for LUE and LLE Subjective Interval Events: - OR on 8/13 with 100% skin graft take - ID reconsulted for concern for infection, recommendations below - Pain remains well-controlled with HAND STRIPER and decreasing - Tolerating High calorie, high protein diet well - Now taking PO iron supplement, no BM yesterday, on bowel reg. Objective Vitals: Last Value Range last 24 hrs Temperature Temp: 36.9 ??C (98.4 ??F) Temp: [36.3 ??C (97.3 ??F)-37 ??C (98.6 ??F)] Heart Rate Heart Rate: (!) 102 Heart Rate: [97-102] Blood Pressure BP: 128/85 BP: (115-151)/(78-98) Respiratory Rate Resp: 18 Resp: [12-18] SpO2 SpO2: 95 % SpO2: [93 %-100 %] O2 Device O2 Device: None (Room air) Intake/Output: 03/14 0701 - 03/15 0700 In: 3680 [P.O.:2690; I.V.:740] Out: 6050 [Urine:6050] Physical Exam: GEN: resting comfortably in bed, NAD HEENT: normocephalic, atraumatic CHEST: In no respiratory distress on RA CV: Tachycardic 130s, well perfused ABD: soft, nontender, nondistended EXTR: LLE lateral thigh fasciotomy wound and LUE wound redressed with adaptic coated with silver wound gel, covered with telfa, gauze, Kerlix and coban. No erythema. R thigh donor area covered in TAMIE bandage with minimal blood staining SKIN: WWP NEURO: AOx3, follows commands Labs: Recent Labs 03/13/22 0602 WBC 8.0 HGB 9.1* HCT 27.5* PLATELET 254 Recent Labs 03/13/22 0602 NA 139 K 3.9 CL 101 CO2 25 BUN 12 CREATININE 0.65* GLUCOSE 100 CALCIUM 9.6 MAGNESIUM 0.70 PHOS 4.9* C Diff Screen Date Value Ref Range Status 02/01/2022 Positive (A) Negative Final Comment: PCR Pos C. diff Positive (GDH positive, toxin antigen negative, toxin PCR positive) DNA from a toxigenic strain of C. difficile was detected, although the free toxin itself was not detected. These results cannot distinguish between colonization and infection. They must be interpreted within the patient???s overall clinical context. Consider other causes for diarrhea or the presence of a non-toxigenic strain. Patient needs to remain on Soap & Water Contact Precautions until discharge or approval by Infection Prevention. Abscess/Wound Aspirate Culture Date Value Ref Range Status 02/19/2022 (A) Final Rare Serratia marcescens Rare Pseudomonas aeruginosa 02/17/2022 (A) Final One colony of Serratia marcescens : Susceptibilities previously reported One colony of Pseudomonas aeruginosa : Susceptibilities previously reported 02/17/2022 (A) Final One colony of Serratia marcescens : Susceptibilities previously reported Anaerobic Culture Date Value Ref Range Status 02/19/2022 No anaerobic organisms isolated Final 02/17/2022 No anaerobic organisms isolated Final 02/17/2022 No anaerobic organisms isolated Final Tissue Culture Date Value Ref Range Status 02/09/2022 (A) Final Few Pseudomonas aeruginosa Few Serratia marcescens Susceptibilities previously reported Blood Culture Date Value Ref Range Status 02/06/2022 No growth at 5 days. Final 02/05/2022 No growth at 5 days. Final 02/01/2022 No growth at 5 days. Final Studies: No recent imaging Assessment and Plan Alix Holland is a 31 y.o. male with HTN, angioedema requiring intubation 04/21, GERD, gastritis, esophagitis, urachal cyst, and polysubstance use (EtOH, cocaine, heroin) who was admitted 01/23/2022 forcompartment syndrome and rhabdomyalysis after being found down. He is now s/p multiple fasciotomies and debridements of LLE and L forearm. Mr. Holland has had a prolonged, complicated hospital course which has been significant for renal replacement therapy secondary to rhabdomyolysis, ICU admissions, multiple debridements, and persistent transfusion requirement. He was transferred to the floor 02/10 and appears to be slowly progressing towards recovery. His wound cultures grew Pseudomonas and Serratia for which he has been covered with by Zosyn. ID consulted 02/11 and Zosyn discontinued and transitioned to cefepime. He also has C. difficile for which he is being treated with p.o. vancomycin which will continue for 10 days (until 03/01/22) following disco ntinuation of cefepime. His leukocytosis has improved. ID was again consulted on 02/22 for cefepime-resistant pseudomonas. Despite the resistence, Mr. Holland has been afebrile and without a leukocytosis so the decision was made to stop cefepime and flagyl. His last dialysis was 02/18/22, central access remains in place due to lack of peripheral access options. His Cr continues to improve, and his urine output remains high. Given his improved renal function, Nephrology recommended stopping weekly EPO, resuming a normal diet, starting vitamin D supplementation and a normal multivitamin. Cultures from 03/05 demonstrated GPCs and GNRs, pseudomonas and speciated MRSA. The patient went to the OR on 03/13 and it was observed that there was 100% take of the LUE and LLE skin graft. There is still the concern for pseudomonal infection which could adversely affect the skingraft. ID was re-engaged and left extensive recommendations that have been followed. The patient returned to the OR on 03/15 for wound exploration, still on IV vancomycin and meropenem. Discussing with ID when to d/c his antibiotics. PT and OT being held until he is off bedrest. Plan: Neuro: AMERICA PO Tylenol, dilaudid HAND STRIPER, PO Oxycodone 10-15 PRN Q4, Zofran PRN, compazine PRN #Polysubstance abuse, found down following fentanyl ingestion, Toxic metabolic encephalopathy, bilateral globus pallidum infarcts --- Thiamine, folate supplementation --- Q shift neurovascular checks --- Neurology consulted 01/23, re-consulted 02/16, no changes to plan --- Expected BG evolution on MRI. No further w/u --- Re-consult neuro closer to d/c for EMG/NCS testing for peripheral neuropathy Psych: BIT (03/02): RC to follow. Expressing desire to leave room but unable to due to infectious disease restrictions. CV: Amlodipine 10mg daily - Persistent tachycardia, likely d/t increased metabolic demand from wounds and infections Resp: Encourage IS, OOB GI: Marinol 10mg BID, Lactulose BID PRN, Scheduled senna and colace FEN: F: PO ad minoo E: BMP wnl N: High protein high calorie diet, Vitamin C, Marinol BID Renal/: - 03/01: Ferritin 693, Total Fe 21, TIBC 185. Nephrology signed off. S/p IV iron. Oral iron supplements - Per nephrology, begin IV iron after Vancomycin course completed 03/01/22 (02/25), Stop weekly EPO (note 02/27), start vitamin D supplementation, start regular multivitamin. Vit D level in mid-May. - Will need CKD clinic follow-up - Daily weights 77.4 Heme: JAVON. Transfuse for Hgb < 7. ID: s/p antibiotics. C diff precautions for 4 weeks until Mar 29. - ID consulted 02/11, 02/17, 02/22, 03/13 - S/p PO Vanc BID for c diff (02/01- 03/01/22). - S/p Cefepime (02/11 - 02/22) - can d/c due to antibiotic resistance - S/p IV flagyl q8h for c diff (02/16 - 02/22) - S/p Unasyn (01/23-01/26 and 01/29-02/01), Cefazolin (01/26-01/29 and 02/01-02/07), Zosyn (02/08-02/11) - 02/15 L Thigh wound culture: Pseudomonas, Serratia, Gram positive cocci - 02/08 and 02/09 wound cx: Pseudomonas, serratia - 03/12 - 03/13 : zosyn - 03/05 wound cultures: pseudomonas and MRSA. ID Recommendations on 03/13: new wound cultures on 03/14 from wounds, contacting the lab to have them assess the sensitivities of the 03/05 culture to ceftazidime-avibactam and ceftolozane- tazobactam (expected results 03/15-03/17), starting on PO vanc at 125mg BID, Vancomycin IV 15mg/kg per Pharmacy and Meropenam 1g Q8H. Endo: JAVON MSK: - s/p multiple fasciotomies, OR debridements, and wound vac changes - Plastics consulted 02/04, okay for primary team to close wounds - Ortho consulted 02/17, signed off, weight bearing status to be determined by primary team - Working with PT/OT 2-4x/week Prophy: Resp: OOB, IS; DVT: SQH TID, IPCs, OOB Lines/Drains/Tubes/Airways: Patient Lines/Drains/Airways Status Active Tubes/Lines/Drains Name Placement date Placement time Site Days PICC Line - Double Lumen 03/03/22 1449 basilic vein (medial side of arm), right 5 Fr 03/03/22 1449 -- 12 Dispo: Floor status; PT/OT consulted. OT 03/02 rec for acute rehab. Hold on OT/PT while strict bedrest Code Status: Attempt Cardiopulmonary Resuscitation - Inpatient Note written in collaboration with Sivakumar Pierre, MS3 Batsheva Hill MD Resident, General Surgery 03/15/22 Dilia Isidro PT - 03/15/2022 3:04 PM EDT 03/15/22 1503 Evaluation & Treatment Document Type contact Total Minutes, Physical Therapy 0 Comment, Session Not Performed Patient unavailable this AM (in OR). Per MD note 03/15/22, PT/OT is to be held d/t strict bedrest. Will f/u as appropriate. Thank you. Sixto Medina MD - 03/15/2022 1:37 PM EDT Surgery Post-Op Check PROCEDURE: Procedure(s) (LRB): DRESSING CHANGE (FOR OTHER THAN GALLOWAY) UNDER ANES., UPPER EXTREMITY (WRVU 0.86) (Left) DRESSING CHANGE (FOR OTHER THAN GALLOWAY) UNDER ANES., LOWER EXTREMITY (WRVU 0.86) (Left) Subjective: Alix Holland is a 31 y.o. male with a h/o HTN, angioedema requiring intubation 04/21, GERD, gastritis, esophagitis, urachal cyst, and polysubstance use (EtOH, cocaine, heroin) s/p above procedure for L forearm and L thigh compartment syndrome. Intraoperative findings as follows: ?? LUE and LLE dressings changed, both skin grafts healthy with 100% take ?? Dressed with silver gel, adaptic, fluffs, and kerlix wrap ?? RLE dressing changed, donor site clean with blue staining on dressing Patient seen and examined at bedside. Pt has no complaints. Pain well controlled on medications. Denies fevers/chills, chest discomfort, SOB, N/V, dizziness. Tolerating Low Phosphorus diet. Ambulating in bed. Voiding. Passing flatus, but no bm. Patient complains of 10/10 pain on dressing sites, mostlythe leg, made nursing aware - due for oxycodone prn soon. Objective Vitals Last value Range last 24hrs Temperature Temp: 37.3 ??C (99.1 ??F) Temp: [36.3 ??C (97.3 ??F)-37.3 ??C (99.1 ??F)] Heart Rate Heart Rate: (!) 102 Heart Rate: [97-102] Blood Pressure BP: 137/85 BP: (115-142)/(78-98) Respiratory Rate Resp: 19 Resp: [12-19] SpO2 SpO2: 98 % SpO2: [93 %-100 %] I/O this shift: In: 710 [P.O.:710] Out: 500 [Urine:500] Physical Exam: General: NAD, resting in bed CV: tachycardic, regular rhythm, no m/r/g Pulm: CTAB on RA Abd: soft, appropriately tender, nondistended : not examined Extremity: no edema noted, dressings CDI Skin: warm and dry Recent Labs 03/13/22 0602 WBC 8.0 HGB 9.1* HCT 27.5* PLATELET 254 Recent Labs 03/13/22 0602 NA 139 K 3.9 CL 101 CO2 25 BUN 12 CREATININE 0.65* GLUCOSE 100 CALCIUM 9.6 MAGNESIUM 0.70 PHOS 4.9* Imaging: No new imaging A/P: Alix Holland is a 31 y.o. male patient s/p above procedures currently in stable condition andrecovering well after surgery. He reports some pain, but is due for next prn soon. Patient is tachycardic, most likely related to pain given stable BPs, benign exam otherwise - for now would watch and wait to see if pain med escalation would be warranted. Appropriate for the floor. - Patient endorsing pain - will receive oxycodone prn and monitor - Hemodynamically stable - stably tachycardic, will continue to monitor - UOP adequate Jeronimo Tinajero, MS4 Acute Care Surgery A medical student assisted me in the documentation of this note. I personally saw and evaluated the patient, reviewed all applicable documented studies, and diagnostic images. The assessment and plan were formulated with the care team at the time of the visit and in my presence. I have made edits to the above note and agree with the details above. Sixto Medina MD PGY-1, General Surgery Acute Care Surgery [id number] 03/15/22 Sixto Medina MD Surgery PGY-1 03/15/2022 Laverne Steiner RN - 03/15/2022 9:08 AM EDT 0855 - admitted to PACU, contact precautions for CDiff, with from the OR post procedure. Monitors attached and alarms set per protocol. Opens eyes to voice and gentle shaking. Respirations unlabored. Dressings dry and intact on LUE, LLE, and RLE. 0930 - c/o pain R thigh. Medicated per order. Pain rated 9/10. Oxycodone given. Takes sips of water easily. HAND STRIPER re-started per order. Pt. Self dosing. Has met PACU criteria. Report called. Jairo Kirkland MD - 03/15/2022 8:55 AM EDT INFECTIOUS DISEASE FOLLOW UP NOTE History of Present Illness: Alix Holland is a 31 y.o. male is a 31 year old male with history of essential hypertension, angioedema, esophagitis, polysubstance use who was admitted on 01/23/2022 s/p VT arrest after fentanyl ingestion. Patient had left forearm and left thigh compartment syndrome with rhabdomyolysis with subsequent renal failure requiring CVVH. Patient required multiple fasciotomies and operative cultures positive for Serratia and Pseudomonas. Subjective: Patient is intubated Opens eyes to verbal commands Under went I and D today Attending: Patient complains of 10/10 throbbing left lower extremity (thigh pain) without radiation,despite pain medications. ROS: Const: No fevers, chills, or sweats. GI: No N, V, D, or abdominal pain. CV: No chest pain, LE swelling. Vital signs: Afebrile, heart rate 123, blood pressure 139/90, o/w acceptable. Physical Exam Vitals reviewed. Constitutional: General: He is not in acute distress. Comments: Intubated HENT: Head: Normocephalic and atraumatic. Right Ear: External ear normal. Left Ear: External ear normal. Eyes: Pupils: Pupils are equal, round, and reactive to light. Cardiovascular: Rate and Rhythm: Normal rate and regular rhythm. Heart sounds: Normal heart sounds. No murmur heard. Pulmonary: Effort: Pulmonary effort is normal. No respiratory distress. Breath sounds: Normal breath sounds. No wheezing. Abdominal: General: Bowel sounds are normal. There is no distension. Palpations: Abdomen is soft. Tenderness: There is no abdominal tenderness. Musculoskeletal: Right lower leg: No edema. Left lower leg: No edema. Skin: General: Skin is warm. Neurological: Comments: Opens eyes to verbal commands Labs: 03/12/2022 WBC 8, hemoglobin 9.1, platelet 254 Creatinine 0.65, sodium 139, potassium 3.9 EKG/Echo: last EKG with 02/04 showed QTC 431 ms Microbiology: 01/23: blood cx*2 NG 01/23:Tracheal Aspirate: MSSA 01/28: blood cx*1 NG 02/01: blood cx*2 NG 02/01: C diff screen neg 02/04: urine GC, trichomonas screen: neg 02/05: ??blood cx*1 NG 02/06: ??blood cx*1 NG 02/08 wound cxs??Left thigh #1&2: Pseudomonas??(multIS), serratia??(multi S except for tetracycline); GS: GNR 02/09 wound cx: Pseudomonas??(multIS), serratia??(multi S except for tetracycline); GS: GNR 02/15:??Intraoperative cultures with Pseudomonas and Serratia 02/19 wound culture Left thigh: Pseudomonas and Serratia 03/05 left thigh: MRSA, PSA R to ceftazidime/cefepime, R to Zosyn, S to meropenem and quinolones Imaging: Meropenem 1 g every 8 hours started 03/13/2022 Vancomycin 1 g every 8 hours started 03/13/2022 Lines/Ayala: Right basilic vein double-lumen PICC line placed 03/03/2022 External Record in [facility]: Yes Care Everywhere:No Paper Record: No Assessment/Plan: Compartment syndrome status post numerous fasciotomies complicated by superficial skin infection, not improving Status post skin grafting. Green discoloration of the wound dressing raised concern. Cultures from 03/05 positive for MRSA and Pseudomonas (with resistance), previously PsA and Serratia Was started on meropenem and vancomycin empirically S/p I and D today, no cultures obtained Recommendations: Continue vancomycin and meropenem IV for now Will write a definitive course if continues to improve Bennett Felix MD Infectious Diseases Fellow- PGY4 Pager: [phone] 03/15/2022 8:55 AM I have discussed case with Dr. Jairo Kirkland This note was created using [employer] voice recognition software. ID Attending I have seen the patient in person and reviewed the fellow's above history and I agree with the details as written. The assessment and plan were formulated in discussion with me and I agree with them asdocumented. Jairo Kirkland MD Staff Physician Infectious Disease and [facility] [id number] or [email or web address] 03/15/22, 11:05 PM Jayme Keenan RN - 03/14/2022 6:44 PM EDT OUTCOME EVALUATION NOTE: OUTCOME SUMMARY: Alix had a good shift today. Tachycardic and hypertensive. A+Ox4. Reporting 8 to 10/10 pain, using dilaudid HAND STRIPER and PRN oxygen given x2. No BM this shift, LBM 03/14. Adequate UOP via urinal. Tolerating regular diet, going NPO at mn. PLAN MOVING FORWARD: Bedrest NPO at midnight Encourage self care Monitor and control pain INDIVIDUALIZED FALL PREVENTION INTERVENTIONS: Patient-specific fall risk factors per assessment: [current deficits]: Unfamiliar environment, recent surgeries, generalized weakness, lines, pain, narcotics Assistance [level of assistance required for transfers and ambulation]: Bedrest, 2 assist to reposition Supervision [direct monitoring required during toileting and ADLs]: Hands on Surveillance [continuous indirect monitoring]: Masimo, rounding, personal items and call starks withinreach, room [facility] Nancy Chahal MD - 03/14/2022 9:26 AM EDT Acute Care Surgery Daily Progress Note Admission Date: 01/23/2022 ID: Ailx Holland is a 31 y.o. male with HTN, angioedema requiring intubation 04/21, GERD, gastritis, esophagitis, urachal cyst, and polysubstance use (EtOH, cocaine, heroin) who was admitted to the MICU 01/23/2022 s/p VT arrest in the setting of being found down following fentanyl overdose and developing L forearm and L thigh compartment syndrome (s/p L forearm, L buttock, and L thigh fasciotomies) w/ subsequent rhabdomyolysis, renal failure, and hyperkalemia which required CVVH. He was transitioned to iHD and transferred to floor status 02/02, however he had persistent daily transfusion requirement from ongoing wound vac bleeding and returned to the OR x2 (02/04 and 02/05) for irrigation and debridement of fasciotomy wounds, however no focal source of bleeding was identified. He was transferred to the SICU 02/05 after L thigh wound vac filled with alexsandra blood and hgb dropped to 4.6 despite 6U pRBC. He went to IR for embolization of SGA pseudoaneurysm and to the OR for hematoma washout on 02/06. He returned to the OR for washout and debridement again on 02/08 and 02/09. He was subsequently lateralized to the ACS service and transferred to floor status on 02/10. His hospital course has also been notable for asymptomatic COVID-19 infection, C. 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 Procedures: 01/23: L thigh fasciotomy, L lower leg fasciotomy, L buttock fasciotomy, L forearm fasciotomy 01/26: Debridements and wound vac change 01/29: Debridement of fasciotomies, closure of L lower leg fasciotomy, closure of dorsal forearm fasciotomy, partial closure L thigh fasciotomy 01/31: Debridement and wound vac change 02/02: Debridement and wound vac change 02/04: Debridement and wound vac change 02/05: Debridement and wound vac change, 02/06: IR embolization of SGA pseudoaneurysm 02/06: LLE hematoma evacuation and washout 02/08: washout and debridement LLE, vac change LUE 02/09: washout and debridement LLE with vac placement 02/11: washout and vac change, LLE and LUE 02/13: washout and vac change, LLE and LUE 02/15: washout and vac change, LLE and LUE, possible drainage of L gluteal abscess 02/19: washout and vac change, LLE and LUE 02/22: washout and vac change, LLE and LUE 02/24: washout and vac change, LLE and LUE 02/26: washout and vac change, LLE and LUE 03/01: washout and vac change, LLE and LUE 03/03: washout and vac change, LLE and LUE 03/05: vac change at bedside, LLE and LUE w/ cultures 03/07: vac change at bedside, LLE and LUE 03/08: vac change at bedside, LLE and LUE 03/10: OR for skin grafting of LUE and LLE from R-sided donor site 03/13: OR for skin graft dressing change for LUE and LLE Subjective Interval Events: - OR on 03/13 with 100% skin graft take - ID reconsulted for concern for infection, recommendations below - Pain remains well-controlled with HAND STRIPER and decreasing - Tolerating High calorie, high protein diet well - Now taking PO iron supplement, no BM yesterday, on bowel reg. Objective Vitals: Last Value Range last 24 hrs Temperature Temp: 36.4 ??C (97.6 ??F) Temp: [36.2 ??C (97.2 ??F)-37.4 ??C (99.3 ??F)] Heart Rate Heart Rate: 97 Heart Rate: [86-102] Blood Pressure BP: (!) 144/99 BP: (139-147)/(86-109) Respiratory Rate Resp: 16 Resp: [10-16] SpO2 SpO2: 97 % SpO2: [97 %-100 %] O2 Device O2 Device: None (Room air) Intake/Output: 03/13 0701 - 03/14 0700 In: 3280 [P.O.:3080; I.V.:200] Out: 3850 [Urine:3850] Physical Exam: GEN: resting comfortably in bed, NAD HEENT: normocephalic, atraumatic CHEST: In no respiratory distress on RA CV: Tachycardic 130s, well perfused ABD: soft, nontender, nondistended EXTR: LLE lateral thigh fasciotomy wound and LUE wound redressed with adaptic coated with silver wound gel, covered with telfa, gauze, Kerlix and coban. No erythema. R thigh donor area covered in TAMIE bandage with minimal blood staining SKIN: WWP NEURO: AOx3, follows commands Labs: Recent Labs 03/13/22 06 WBC 8.0 HGB 9.1* HCT 27.5* PLATELET 254 Recent Labs 03/13/22 0602 NA 139 K 3.9 CL 101 CO2 25 BUN 12 CREATININE 0.65* GLUCOSE 100 CALCIUM 9.6 MAGNESIUM 0.70 PHOS 4.9* C Diff Screen Date Value Ref Range Status 02/01/2022 Positive (A) Negative Final Comment: PCR Pos C. diff Positive (GDH positive, toxin antigen negative, toxin PCR positive) DNA from a toxigenic strain of C. difficile was detected, although the free toxin itself was not detected. These results cannot distinguish between colonization and infection. They must be interpreted within the patient???s overall clinical context. Consider other causes for diarrhea or the presence of a non-toxigenic strain. Patient needs to remain on Soap & Water Contact Precautions until discharge or approval by Infection Prevention. Abscess/Wound Aspirate Culture Date Value Ref Range Status 02/19/2022 (A) Final Rare Serratia marcescens Rare Pseudomonas aeruginosa 02/17/2022 (A) Final One colony of Serratia marcescens : Susceptibilities previously reported One colony of Pseudomonas aeruginosa : Susceptibilities previously reported 02/17/2022 (A) Final One colony of Serratia marcescens : Susceptibilities previously reported Anaerobic Culture Date Value Ref Range Status 02/19/2022 No anaerobic organisms isolated Final 02/17/2022 No anaerobic organisms isolated Final 02/17/2022 No anaerobic organisms isolated Final Tissue Culture Date Value Ref Range Status 02/09/2022 (A) Final Few Pseudomonas aeruginosa Few Serratia marcescens Susceptibilities previously reported Blood Culture Date Value Ref Range Status 02/06/2022 No growth at 5 days. Final 02/05/2022 No growth at 5 days. Final 02/01/2022 No growth at 5 days. Final Studies: No recent imaging Assessment and Plan Alix Holland is a 31 y.o. male with HTN, angioedema requiring intubation 04/21, GERD, gastritis, esophagitis, urachal cyst, and polysubstance use (EtOH, cocaine, heroin) who was admitted 01/23/2022 forcompartment syndrome and rhabdomyalysis after being found down. He is now s/p multiple fasciotomies and debridements of LLE and L forearm. Mr. Holland has had a prolonged, complicated hospital course which has been significant for renal replacement therapy secondary to rhabdomyolysis, ICU admissions, multiple debridements, and persistent transfusion requirement. He was transferred to the floor 02/10 and appears to be slowly progressing towards recovery. His wound cultures grew Pseudomonas and Serratia for which he has been covered with by Zosyn. ID consulted 02/11 and Zosyn discontinued and transitioned to cefepime. He also has C. difficile for which he is being treated with p.o. vancomycin which will continue for 10 days (until 03/01/22) following disco ntinuation of cefepime. His leukocytosis has improved. ID was again consulted on 02/22 for cefepime-resistant pseudomonas. Despite the resistence, Mr. Holland has been afebrile and without a leukocytosis so the decision was made to stop cefepime and flagyl. His last dialysis was 02/18/22, central access remains in place due to lack of peripheral access options. His Cr continues to improve, and his urine output remains high. Given his improved renal function, Nephrology recommended stopping weekly EPO, resuming a normal diet, starting vitamin D supplementation and a normal multivitamin. Cultures from 03/05 demonstrated GPCs and GNRs, pseudomonas and speciated MRSA. The patient went to the OR yesterday and it was observed that there was 100% take of the LUE and LLEskin graft. There is still the concern for pseudomonal infection which could adversely affect the skin graft. ID was re-engaged and left extensive recommendations that have been followed. The patient will return to the OR on 03/15 for wound exploration and deep cultures will be obtained at that time. Plan: Neuro: [place] PO Tylenol, HAND STRIPER, PO Oxycodone 10-15 PRN Q4, Zofran PRN #Polysubstance abuse, found down following fentanyl ingestion, Toxic metabolic encephalopathy, bilateral globus pallidum infarcts - Thiamine, folate supplementation - Q shift neurovascular checks - Neurology consulted 01/23, re-consulted 02/16, no changes to plan --- Expected BG evolution on MRI. No further w/u --- Re-consult neuro closer to d/c for EMG/NCS testing for peripheral neuropathy Psych: BIT (03/02): RC to follow. Expressing desire to leave room but unable to due to infectious disease restrictions. CV: Amlodipine 10mg daily - Persistent tachycardia, likely d/t increased metabolic demand from wounds and infections Resp: Encourage IS, OOB GI: Marinol 10mg BID, Lactulose BID PRN, Scheduled senna and colace FEN: F: PO ad minoo E: BMP wnl N: High protein high calorie diet, NPO at 0005 on 03/15, Vitamin C, Marinol BID Renal/: - 03/01: Ferritin 693, Total Fe 21, TIBC 185. Nephrology signed off. S/p IV iron. Oral iron supplements - Per nephrology, begin IV iron after Vancomycin course completed 03/01/22 (02/25), Stop weekly EPO (note 02/27), start vitamin D supplementation, start regular multivitamin. Vit D level in mid-May. - Will need CKD clinic follow-up - Daily weights 77.4 Heme: JAVON. Transfuse for Hgb < 7. ID: s/p antibiotics. C diff precautions for 4 weeks until Mar 29. - ID consulted 02/11, 02/17, 02/22, 03/13 - S/p PO Vanc BID for c diff (02/01- 03/01/22). - S/p Cefepime (02/11 - 02/22) - can d/c due to antibiotic resistance - S/p IV flagyl q8h for c diff (02/16 - 02/22) - S/p Unasyn (01/23-01/26 and 01/29-02/01), Cefazolin (01/26-01/29 and 02/01-02/07), Zosyn (02/08-02/11) - 02/15 L Thigh wound culture: Pseudomonas, Serratia, Gram positive cocci - 02/08 and 02/09 wound cx: Pseudomonas, serratia - 03/12 - 03/13 : zosyn - 03/05 wound cultures: pseudomonas and MRSA. ID Recommendations on 03/13: new wound cultures on 03/14 from wounds, contacting the lab to have them assess the sensitivities of the 03/05 culture to ceftazidime-avibactam and ceftolozane- tazobactam (expected results 03/15-03/17), starting on PO vanc at 125mg BID, Vancomycin IV 15mg/kg per Pharmacy and Meropenam 1g Q8H. - Endo: JAVON MSK: OR this AM for skin graft dressing change on bth LLE and LUE Skin grafting on 03/10. - s/p multiple fasciotomies, OR debridements, and wound vac changes - Plastics consulted 02/04, okay for primary team to close wounds - Ortho consulted 02/17, signed off, weight bearing status to be determined by primary team - Working with PT/OT 2-4x/week Prophy: Resp: OOB, IS; DVT: SQH TID, IPCs, OOB Lines/Drains/Tubes/Airways: 5F PICC. Dispo: Floor status; PT/OT consulted. OT 03/02 rec for acute rehab. Hold on OT/PT while strict bedrest Code Status: Attempt Cardiopulmonary Resuscitation - Inpatient Nancy Chahal MD Resident, General Surgery 03/14/22 Zahida Cam DO - 03/13/2022 2:35 PM EDT Follow-up/re-engagement inpatient ID Consult Note CC: Suspicion for an infected graft Antibiotics: Zosyn 03/12-03/13 HPI: Alix Holland is a 31 y.o.man known to have history of HTN, angioedema requiring intubation 04/21, GERD, gastritis, esophagitis, urachal cyst, and polysubstance use (EtOH, cocaine, heroin)??who was admitted to the [facility]??01/23/2022??s/p VT arrest in the setting of being??found down following fentanyl ingestion and developing L forearm and L thigh compartment syndrome (s/p L forearm, L buttock, and L thigh fasciotomies) w/ subsequent rhabdomyolysis, renal failure, and hyperkalemia which required CVVH, now has recovered his kidney function fully. His hospitalization was complicated by multiple surgicalsite infection that needed multiple irrigation and debridement of the fasciotomy, operative culturesgrew Serratia and pseudomonas which sensitive to cefepime [started on metronidazole as well to coverfor anaerobes empirically], among others, he underwent wound VAC change on 02/19, fluid culture at that time grew pseudomonas that was resistant to cefepime. The ID team discussed with the surgical teamat that time and in view of the presence of good granulation tissue and absence of systemic signs, cefepime and metronidazole were stopped specially that he had C. difficile colitis. Oral vancomycin was stopped after 1 week (he completed the course of vancomycin from 02/01-02/11). The patient underwent wound VAC changes, multiple times including the 1 conducted on 03/05, at that time a left thigh fluid culture was taken and it grew MRSA and Pseudomonas resistant to Zosyn and cefepime/ceftazidime. He underwent skin grafting on 03/10, the donor site was the right lateral side and was grafted to theleft upper extremity and left lower extremity with sponge placement on both sides. The pictures of the wounds prior and after the grafting are not suggestive of an infection. We were called because he was noted to have green discoloration of the wound VAC/sponges [both the left upper and lower extremity]. He was taken to the OR right away [03/13, 8:24 AM], he was found to have no signs of infection underlying the skin graft was 100% underlying healthy tissues. He was redressed with silver wound gel and covered with Telfa, gauze, Kerlix and Coban. He has no systemic signs or symptoms suggestive of infections, no fever, no chills, no night sweats.He states that he feels the best since he has been here. He has occasional pain at the donor site and intermittent pain at the receiving sites No nausea/vomiting, chest pain, SOB, pain well controlled, offers no complaints. No more diarrhea. ROS: Denies fevers, chills, night sweats, headache, dizziness. Denies chest pain, palpitations. Denies shortness of breath, cough. Denies abdominal pain, nausea/vomiting, constipation/diarrhea. Denies hematuria, dysuria. Denies new rashes. Physical Exam: Last value Range last 48 hrs Temperature Temp: 36.8 ??C (98.2 ??F) Temp: [36.2 ??C (97.2 ??F)-37.2 ??C (99 ??F)] Heart Rate Heart Rate: 97 Heart Rate: [86-119] Blood Pressure BP: (!) 142/96 BP: (131-156)/(90-109) Respiratory Rate Resp: 16 Resp: [10-18] SpO2 SpO2: 98 % SpO2: [96 %-100 %] CONSTITUTIONAL: No acute distress, looks well, very interactive EYES: No conjunctival injection or icterus, pupils equal, round, and reactive to light EARS, NOSE, MOUTH, THROAT: Ears and nose grossly normal, poor dentition, oropharynx clear without lesions or thrush, dry mucous membranes CARDIOVASCULAR: Regular rate and rhythm, no murmurs, rubs or gallops, no lower extremity edema or JVD RESPIRATORY: Normal work of breathing, no wheezes, rales, or ronchi GI: no tenderness to palpation SKIN: No rashes or wounds, skin is warm and sweaty NEURO: Cranial nerves grossly intact, light touch intact, normal gait PSYCH: Appropriate mood and affect, memory intact, oriented to person, place, and time Extremities: Left: exam as per the surgery team as both the upper and lower extremities were covered upon my examination LLE lateral thigh fasciotomy wound and LUE wound redressed with adaptic coated with silver wound gel, covered with telfa, gauze, Kerlix and coban. No erythema. R thigh donor area covered in TAMIE bandagewith minimal blood staining Right: Mild edema, donor site covered [right side] Double-lumen right basilic vein PICC line present with normal surrounding skin, no tenderness Labs: Recent Labs 03/13/22 0602 WBC 8.0 RBC 3.12* HGB 9.1* HCT 27.5* MCV 88.1 MCH 29.2 MCHC 33.1 PLATELET 254 RDWCV 15.5* Lab Results Component Value Date NA 139 03/13/2022 K 3.9 03/13/2022 CL 101 03/13/2022 CO2 25 03/13/2022 BUN 12 03/13/2022 CREATININE 0.65 (L) 03/13/2022 GLUCOSE 100 03/13/2022 GLUCFASTING 151 (H) 04/26/2021 CALCIUM 9.6 03/13/2022 ESTGFR 130 03/13/2022 Lab Results Component Value Date ALT <5 02/05/2022 AST 21 02/05/2022 ALKPHOS 74 02/05/2022 BILITOT 0.4 02/05/2022 BILIDIR 0.3 02/05/2022 ALBUMIN 3.3 03/02/2022 PROT 3.2 (L) 02/05/2022 Micro: 01/23: blood cx*2 NG 01/23:Tracheal Aspirate: MSSA 01/28: blood cx*1 NG 02/01: blood cx*2 NG 02/01: C diff screen neg 02/04: urine GC, trichomonas screen: neg 02/05: ??blood cx*1 NG 02/06: ??blood cx*1 NG 02/08 wound cxs??Left thigh #1&2: Pseudomonas??(multIS), serratia??(multi S except for tetracycline); GS: GNR 02/09 wound cx: Pseudomonas??(multIS), serratia??(multi S except for tetracycline); GS: GNR 02/15:??Intraoperative cultures with Pseudomonas and Serratia 02/19 wound culture Left thigh: Pseudomonas and Serratia 03/05 left thigh: MRSA, PSA R to ceftazidime/cefepime, R to Zosyn, S to meropenem and quinolones Imaging: None new Impressions: Alix Holland is a 31 y.o.man known to have history of HTN, angioedema requiring intubation 04/21, GERD, gastritis, esophagitis, urachal cyst, and polysubstance use (EtOH, cocaine, heroin)??who was admitted to the MICU??01/23/2022??s/p VT arrest in the setting of being??found down following fentanyl ingestion and developing L forearm and L thigh compartment syndrome (s/p L forearm, L buttock, and L thigh fasciotomies) w/ subsequent rhabdomyolysis, renal failure, and hyperkalemia which required CVVH, now has recovered his kidney function fully. His hospitalization was complicated by multiple surgicalsite infection that needed multiple irrigation and debridement of the fasciotomy, operative culturesgrew Serratia and pseudomonas which sensitive to cefepime [started on metronidazole as well to coverfor anaerobes empirically], among others, he underwent wound VAC change on 02/19, fluid culture at that time grew pseudomonas that was resistant to cefepime. The ID team discussed with the surgical teamat that time and in view of the presence of good granulation tissue and absence of systemic signs, cefepime and metronidazole were stopped specially that he had C. difficile colitis. Oral vancomycin was stopped after 1 week (he completed the course of vancomycin from 02/01-02/11). The patient underwent wound VAC changes, multiple times including the 1 conducted on 03/05, at that time a left thigh fluid culture was taken and it grew MRSA and Pseudomonas resistant to Zosyn and cefepime/ceftazidime. He underwent skin grafting on 03/10, the donor site was the right lateral side and was grafted to theleft upper extremity and left lower extremity with sponge placement on both sides. The pictures of the wounds prior and after the grafting are not suggestive of an infection. We were called because he was noted to have green discoloration of the wound VAC/sponges [both the left upper and lower extremity]. He was taken to the OR right away [03/13, 8:24 AM], he was found to have no signs of infection underlying the skin graft was 100% underlying healthy tissues. He was redressed with silver wound gel and covered with Telfa, gauze, Kerlix and Coban. Of note, he has no local systemic signs or symptoms suggestive of infections, his exam today was theclosest to normal he had since has been here [I have known him from before].We think that the most probable explanation for the greenish discoloration of the sponges is probably chemical reaction, however we acknowledged that the culture on 03 05 grew Pseudomonas and MRSA [taken from the left thigh fluid?] and the difficulty of treating an infected skin graft and the cost that would be entailed from not treating an early infection. Thus, we suggest taking the deepest specimen that could be possible obtained [scheduled for a bedside wound VAC change tomorrow] and treating now based on the last cultureresult [03/05] with meropenem and vancomycin. We would also send the last Pseudomonas isolate for susceptibility testing to ceftazidime-avibactam and ceftolozane-tazobactam. Since the patient had C. difficile colitis within the last 90 days, he qualifies for secondary prevention with vancomycin [p.o. at the dose of 125 mg twice daily] Recommendations: Start meropenem at the dose of 1g q8 hours Start vancomycin at the dose of 15 mg/kgs and consult pharmacy Start vancomycin po at the dose of 125 mg q 12 hours for secondary prevention for C.diff colitis Ask the lab to conduct susceptibility testing of the PSA for ceftazidime- avibactam and ceftolozane-tazobactam Discussed with team and Dr Cam. X Consult service will continue to follow patient. Recommendations are above, please page if further consultation required. .Lorenza Jha MD Infectious Disease I have seen the patient and reviewed the above history and physical and I agree with the details as written. The assessment and plan were formulated in discussion with me and I agree with them as documented. Patient recently underwent skin graft to both LUE and LLE on 03/10 and within 2 days the white sponges covering his graft sites turned florescent green. His wounds at the time of grafting had no signs of infection, however he did have a superficial culture of the left thigh on 03/05 that grew MRSA and pseudomonas. He went to the OR for evaluation and although the sponges were green and there was malodor, there was no evidence of infection at the graft site, no cultures were obtained. He has otherwise been stable with no other signs or symptoms of infection. He has been off all antibiotics since 02/22. I am not entirely convinced that his wounds are infected and wonder if something else could have happened to the sponge, or biofilm developed on the sponge. We do know he is colonized with both pseudomonas and MRSA so it would not be unreasonable to start empiric therapy while sorting out the issue in order to prevent invasive infection, but I would not commit him to prolonged treatment until we have e stablished a diagnosis that warrants it. Zahida Cam DO, MPH Infectious Disease Nancy Chahal MD - 03/13/2022 2:02 PM EDT Post-Operative Check Alix Holland is a 31 y.o. male s/p Procedure(s): DRESSING CHANGE (FOR OTHER THAN GALLOWAY) UNDER ANES., UPPER EXTREMITY (WRVU 0.86) DRESSING CHANGE (FOR OTHER THAN GALLOWAY) UNDER ANES., LOWER EXTREMITY (WRVU 0.86) S: No nausea/vomiting, chest pain, SOB, pain well controlled, offers no complaints O: Temp: [36.2 ??C (97.2 ??F)-36.8 ??C (98.2 ??F)] Heart Rate: [86-102] Resp: [10-16] BP: (139-147)/(96-109) SpO2: [98 %-100 %] Heart Rate from SpO2: [91 bpm-107 bpm] I/O last 3 completed shifts: In: 4874 [P.O.:3490; I.V.:1384] Out: 7090 [Urine:7090] I/O this shift: In: 200 [I.V.:200] Out: 500 [Urine:500] Recent Results (from the past 24 hour(s)) Basic Metabolic Panel (non-fasting) Result Value Ref Range Glucose Lvl 100 65 - 199 mg/dL BUN 12 10 - 20 mg/dL Creatinine 0.65 (L) 0.80 - 1.50 mg/dL Sodium 139 135 - 145 mmol/L Potassium 3.9 3.5 - 5.0 mmol/L Chloride 101 98 - 107 mmol/L CO2 25 22 - 31 mmol/L Anion Gap 13 5 - 15 mmol/L Calcium 9.6 8.5 - 10.5 mg/dL Estimated GFR 130 >=60 mL/min/1.73 m?? Magnesium Result Value Ref Range Magnesium 0.70 0.69 - 1.07 mmol/L Phosphorus Result Value Ref Range Phosphorus 4.9 (H) 2.5 - 4.5 mg/dL Hemogram Result Value Ref Range WBC 8.0 4.0 - 9.5 x10(3)/mcL RBC 3.12 (L) 4.58 - 5.54 x10(6)/mcL Hemoglobin 9.1 (L) 13.7 - 16.5 g/dL Hematocrit 27.5 (L) 40.5 - 48.5 % MCV 88.1 82.9 - 93.1 fL MCH 29.2 27.5 - 32.1 pg MCHC 33.1 32.0 - 35.7 g/dL Platelets 254 145 - 357 x10(3)/mcL RDWSD 49.4 (H) 36.0 - 45.0 fL RDWCV 15.5 (H) 11.4 - 13.8 % MPV 8.4 7.6 - 12.9 fL nRBC % Auto 0.0 % nRBC Abs Auto 0.000 0.000 - 0.000 x10(3)/mcL Differential, Automated Result Value Ref Range Neutrophils % 68.2 % Neutr Abs (ANC) 5.47 1.70 - 6.10 x10(3)/mcL Lymphocytes % 17.0 % Lymphocytes Abs 1.4 0.9 - 3.2 x10(3)/mcL Monocytes % 8.0 % Monocyte Abs 0.6 0.3 - 0.9 x10(3)/mcL Eosinophils % 4.2 % Eosinophils Abs 0.3 0.0 - 0.4 x10(3)/mcL Basophils % 0.5 % Basophils Abs 0.0 0.0 - 0.1 x10(3)/mcL Immature Gran % 2.10 % Gemini Gran Abs 0.17 (H) 0.00 - 0.04 x10(3)/mcL Physical Exam Gen: A0x3, NAD, resting comfortably CVS: Regular rate and rhythm Resp: CTAB, breathing comfortably on RA Abd: soft, non-tender, non-distended Ext: SCDs in place, WWP AP Alix Holland is a 31 y.o. male s/p split thickness skin graft dressing change with wound vac take-down currently in stable condition and recovering well - Regular diet - Pain well controlled - Hemodynamically stable, UOP adequate - Continue post operative plan per primary team Nancy Chahal MD 03/13/2022 Nancy Chahal MD - 03/13/2022 1:44 PM EDT Acute Care Surgery Daily Progress Note Admission Date: 01/23/2022 ID: Alix Holland is a 31 y.o. male with HTN, angioedema requiring intubation 04/21, GERD, gastritis, esophagitis, urachal cyst, and polysubstance use (EtOH, cocaine, heroin) who was admitted to the MICU 01/23/2022 s/p VT arrest in the setting of being found down following fentanyl overdose and developing L forearm and L thigh compartment syndrome (s/p L forearm, L buttock, and L thigh fasciotomies) w/ subsequent rhabdomyolysis, renal failure, and hyperkalemia which required CVVH. He was transitioned to iHD and transferred to floor status 02/02, however he had persistent daily transfusion requirement from ongoing wound vac bleeding and returned to the OR x2 (02/04 and 02/05) for irrigation and debridement of fasciotomy wounds, however no focal source of bleeding was identified. He was transferred to the SICU 02/05 after L thigh wound vac filled with alexsandra blood and hgb dropped to 4.6 despite 6U pRBC. He went to IR for embolization of SGA pseudoaneurysm and to the OR for hematoma washout on 02/06. He returned to the OR for washout and debridement again on 02/08 and 02/09. He was subsequently lateralized to the ACS service and transferred to floor status on 02/10. His hospital course has also been notable for asymptomatic COVID-19 infection, C. 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 Procedures: 01/23: L thigh fasciotomy, L lower leg fasciotomy, L buttock fasciotomy, L forearm fasciotomy 01/26: Debridements and wound vac change 01/29: Debridement of fasciotomies, closure of L lower leg fasciotomy, closure of dorsal forearm fasciotomy, partial closure L thigh fasciotomy 01/31: Debridement and wound vac change 02/02: Debridement and wound vac change 02/04: Debridement and wound vac change 02/05: Debridement and wound vac change, 02/06: IR embolization of SGA pseudoaneurysm 02/06: LLE hematoma evacuation and washout 02/08: washout and debridement LLE, vac change LUE 7/12: washout and debridement LLE with vac placement 02/11: washout and vac change, LLE and LUE 02/13: washout and vac change, LLE and LUE 02/15: washout and vac change, LLE and LUE, possible drainage of L gluteal abscess 02/19: washout and vac change, LLE and LUE 02/22: washout and vac change, LLE and LUE 02/24: washout and vac change, LLE and LUE 02/26: washout and vac change, LLE and LUE 03/01: washout and vac change, LLE and LUE 03/03: washout and vac change, LLE and LUE 03/05: vac change at bedside, LLE and LUE w/ cultures 03/07: vac change at bedside, LLE and LUE 03/08: vac change at bedside, LLE and LUE 03/10: OR for skin grafting of LUE and LLE from R-sided donor site 03/13: OR for skin graft dressing change for LUE and LLE Subjective Interval Events: - Taken to OR for evaluation and redressing of LUE and LLE wounds - Wounds now redressed with adaptic coated with silver wound gel, covered telfa, gauze, kerlix, coban - Pain remains well-controlled with HAND STRIPER - Tolerating High calorie, high protein diet well - Now taking PO iron supplement, no BM yesterday, on bowel reg. Objective Vitals: Last Value Range last 24 hrs Temperature Temp: 37.2 ??C (99 ??F) Temp: [36.4 ??C (97.5 ??F)-37.2 ??C (99 ??F)] Heart Rate Heart Rate: (!) 119 Heart Rate: [119] Blood Pressure BP: 146/90 BP: (144-156)/(90-108) Respiratory Rate Resp: 18 Resp: [16-18] SpO2 SpO2: 97 % SpO2: [97 %-100 %] O2 Device O2 Device: None (Room air) Intake/Output: 03/12 0701 - 03/13 0700 In: 2950 [P.O.:2550; I.V.:400] Out: 4865 [Urine:4865] Physical Exam: GEN: resting comfortably in bed, NAD HEENT: normocephalic, atraumatic CHEST: In no respiratory distress on RA CV: Tachycardic 130s, well perfused ABD: soft, nontender, nondistended EXTR: LLE lateral thigh fasciotomy wound and LUE wound redressed with adaptic coated with silver wound gel, covered with telfa, gauze, Kerlix and coban. No erythema. R thigh donor area covered in TAMIE bandage with minimal blood staining SKIN: WWP NEURO: AOx3, follows commands Labs: Recent Labs 03/13/22 06 WBC 8.0 HGB 9.1* HCT 27.5* PLATELET 254 Recent Labs 03/13/22 0602 NA 139 K 3.9 CL 101 CO2 25 BUN 12 CREATININE 0.65* GLUCOSE 100 CALCIUM 9.6 MAGNESIUM 0.70 PHOS 4.9* C Diff Screen Date Value Ref Range Status 02/01/2022 Positive (A) Negative Final Comment: PCR Pos C. diff Positive (GDH positive, toxin antigen negative, toxin PCR positive) DNA from a toxigenic strain of C. difficile was detected, although the free toxin itself was not detected. These results cannot distinguish between colonization and infection. They must be interpreted within the patient???s overall clinical context. Consider other causes for diarrhea or the presence of a non-toxigenic strain. Patient needs to remain on Soap & Water Contact Precautions until discharge or approval by Infection Prevention. Abscess/Wound Aspirate Culture Date Value Ref Range Status 02/19/2022 (A) Final Rare Serratia marcescens Rare Pseudomonas aeruginosa 02/17/2022 (A) Final One colony of Serratia marcescens : Susceptibilities previously reported One colony of Pseudomonas aeruginosa : Susceptibilities previously reported 02/17/2022 (A) Final One colony of Serratia marcescens : Susceptibilities previously reported Anaerobic Culture Date Value Ref Range Status 02/19/2022 No anaerobic organisms isolated Final 02/17/2022 No anaerobic organisms isolated Final 02/17/2022 No anaerobic organisms isolated Final Tissue Culture Date Value Ref Range Status 02/09/2022 (A) Final Few Pseudomonas aeruginosa Few Serratia marcescens Susceptibilities previously reported Blood Culture Date Value Ref Range Status 02/06/2022 No growth at 5 days. Final 02/05/2022 No growth at 5 days. Final 02/01/2022 No growth at 5 days. Final Studies: No recent imaging Assessment and Plan Alix Holland is a 31 y.o. male with HTN, angioedema requiring intubation 04/21, GERD, gastritis, esophagitis, urachal cyst, and polysubstance use (EtOH, cocaine, heroin) who was admitted 01/23/2022 forcompartment syndrome and rhabdomyalysis after being found down. He is now s/p multiple fasciotomies and debridements of LLE and L forearm. Mr. Holland has had a prolonged, complicated hospital course which has been significant for renal replacement therapy secondary to rhabdomyolysis, ICU admissions, multiple debridements, and persistent transfusion requirement. He was transferred to the floor 02/10 and appears to be slowly progressing towards recovery. His wound cultures grew Pseudomonas and Serratia for which he has been covered with by Zosyn. ID consulted 02/11 and Zosyn discontinued and transitioned to cefepime. He also has C. difficile for which he is being treated with p.o. vancomycin which will continue for 10 days (until 03/01/22) following disco ntinuation of cefepime. His leukocytosis has improved. ID was again consulted on 02/22 for cefepime-resistant pseudomonas. Despite the resistence, Mr. Holland has been afebrile and without a leukocytosis so the decision was made to stop cefepime and flagyl. His last dialysis was 02/18/22, central access remains in place due to lack of peripheral access options. His Cr continues to improve, and his urine output remains high. Given his improved renal function, Nephrology recommended stopping weekly EPO, resuming a normal diet, starting vitamin D supplementation and a normal multivitamin. Cultures from 03/05 demonstrated GPCs and GNRs, pseudomonas and speciated MRSA. Patient is now POD3 from LLE and LUE skin graft from right-sided donor site. Yesterday 03/12/22 it was noted that the graft on the LUE was bright green. Patient has known pseudomonas that is resistant to Zosyn and MRSA. Concern for potential infection without skin graft. He was taken to the OR for exploration and wound vac take-down for which demonstrated no concern for active infection. Given his antibiotic resistance, ID was re-engaged. Recommendations include: new wound cultures on 03/14 from wounds, contacting the lab to have them assess the sensitivities of the 03/05 culture to ceftazidime-avibactam and ceftolozane- tazobactam, starting on PO vanc at 125mg BID, Vancomycin IV 15mg/kg per Pharmacy and Meropenam 1g Q8H. Plan: Neuro: AMERICA PO Tylenol, HAND STRIPER PO Oxycodone 10-15 PRN Q4, Zofran PRN #Polysubstance abuse, found down following fentanyl ingestion, Toxic metabolic encephalopathy, bilateral globus pallidum infarcts - Thiamine, folate supplementation - Q shift neurovascular checks - Neurology consulted 01/23, re-consulted 02/16, no changes to plan --- Expected BG evolution on MRI. No further w/u --- Re-consult neuro closer to d/c for EMG/NCS testing for peripheral neuropathy Psych: BIT (03/02): RC to follow. Expressing desire to leave room but unable to due to infectious disease restrictions. CV: Amlodipine 10mg daily - Persistent tachycardia, likely d/t increased metabolic demand from wounds and infections Resp: Encourage IS, OOB GI: Marinol 10mg BID, Lactulose BID PRN, Scheduled senna and colace FEN: F: PO ad minoo E: BMP wnl N: NPO, can have high protein high calorie diet, Vitamin C, Marinol BID Renal/: - 03/01: Ferritin 693, Total Fe 21, TIBC 185. Nephrology signed off. S/p IV iron. Oral iron supplements - Per nephrology, begin IV iron after Vancomycin course completed 03/01/22 (02/25), Stop weekly EPO (note 02/27), start vitamin D supplementation, start regular multivitamin. Vit D level in mid-May. - Will need CKD clinic follow-up - Daily weights 77.4 Heme: JAVON. Transfuse for Hgb < 7. ID: s/p antibiotics. C diff precautions for 4 weeks until Mar 29. - ID consulted 02/11, 02/17, 02/22, 03/13 - S/p PO Vanc BID for c diff (02/01- 03/01/22). - S/p Cefepime (02/11 - 02/22) - can d/c due to antibiotic resistance - S/p IV flagyl q8h for c diff (02/16 - 02/22) - S/p Unasyn (01/23-01/26 and 01/29-02/01), Cefazolin (01/26-01/29 and 02/01-02/07), Zosyn (02/08-02/11) - 02/15 L Thigh wound culture: Pseudomonas, Serratia, Gram positive cocci - 02/08 and 02/09 wound cx: Pseudomonas, serratia - 03/12 - 03/13 : zosyn - 03/05 wound cultures: pseudomonas and MRSA. ID Recommendations: new wound cultures on 03/14 from wounds, contacting the lab to have them assess the sensitivities of the 03/05 culture to ceftazidime-avibactam and ceftolozane- tazobactam, starting on PO vanc at 125mg BID, Vancomycin IV 15mg/kg per Pharmacy and Meropenam 1g Q8H. - Endo: JAVON MSK: OR this AM for skin graft dressing change on bth LLE and LUE Skin grafting on 03/10. - s/p multiple fasciotomies, OR debridements, and wound vac changes - Plastics consulted 02/04, okay for primary team to close wounds - Ortho consulted 02/17, signed off, weight bearing status to be determined by primary team - Working with PT/OT 2-4x/week Prophy: Resp: OOB, IS; DVT: SQH TID, IPCs, OOB Lines/Drains/Tubes/Airways: 5F PICC. Dispo: Floor status; PT/OT consulted. OT 03/02 rec for acute rehab. Hold on OT/PT while strict bedrest Code Status: Attempt Cardiopulmonary Resuscitation - Inpatient Norbert Vega, 4 Acute Care Surgery 03/13/22 Team Pager [phone] A medical student assisted me in the documentation of this note. I personally saw and evaluated the patient, reviewed all applicable documented studies, and diagnostic images. The assessment and plan were formulated with the care team at the time of the visit and in my presence. I have made edits to the above note and agree with the details above. Nancy Chahal MD Resident, General Surgery 03/13/22 Adrienne Tejada RN - 03/13/2022 10:41 AM EDT Patient came back to [facility] from PACU via bed in stable condition. Amy Pineda RN - 03/13/2022 10:31 AM EDT 0931 Pt arrived to PACU lethargic, oral airway in place. Connected to monitors, alarms set and reviewed. VSS. LUE/LLE dressings CDI, only to be changed by MD. RLE dressings with dried drainage. 0945 Pt more awake, c/p pain, utilizizing HAND STRIPER. 1000 Tolerating sips of lenora opal. Report given to ÁNGEL Deleon on [facility] Adrienne Tejada RN - 03/13/2022 7:52 AM EDT Patient went to OR via bed in stable condition. Nancy Chahal MD - 03/12/2022 1:23 PM EDT Acute Care Surgery Daily Progress Note Admission Date: 01/23/2022 ID: Alix Holland is a 31 y.o. male with HTN, angioedema requiring intubation 04/21, GERD, gastritis, esophagitis, urachal cyst, and polysubstance use (EtOH, cocaine, heroin) who was admitted to the MICU 01/23/2022 s/p VT arrest in the setting of being found down following fentanyl overdose and developing L forearm and L thigh compartment syndrome (s/p L forearm, L buttock, and L thigh fasciotomies) w/ subsequent rhabdomyolysis, renal failure, and hyperkalemia which required CVVH. He was transitioned to iHD and transferred to floor status 02/02, however he had persistent daily transfusion requirement from ongoing wound vac bleeding and returned to the OR x2 (02/04 and 02/05) for irrigation and debridement of fasciotomy wounds, however no focal source of bleeding was identified. He was transferred to the SICU 02/05 after L thigh wound vac filled with alexsandra blood and hgb dropped to 4.6 despite 6U pRBC. He went to IR for embolization of SGA pseudoaneurysm and to the OR for hematoma washout on 02/06. He returned to the OR for washout and debridement again on 02/08 and 02/09. He was subsequently lateralized to the ACS service and transferred to floor status on 02/10. His hospital course has also been notable for asymptomatic COVID-19 infection, C. 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 Procedures: 01/23: L thigh fasciotomy, L lower leg fasciotomy, L buttock fasciotomy, L forearm fasciotomy 01/26: Debridements and wound vac change 01/29: Debridement of fasciotomies, closure of L lower leg fasciotomy, closure of dorsal forearm fasciotomy, partial closure L thigh fasciotomy 01/31: Debridement and wound vac change 02/02: Debridement and wound vac change 02/04: Debridement and wound vac change 02/05: Debridement and wound vac change, 02/06: IR embolization of SGA pseudoaneurysm 02/06: LLE hematoma evacuation and washout 02/08: washout and debridement LLE, vac change LUE 02/09: washout and debridement LLE with vac placement 02/11: washout and vac change, LLE and LUE 02/13: washout and vac change, LLE and LUE 02/15: washout and vac change, LLE and LUE, possible drainage of L gluteal abscess 02/19: washout and vac change, LLE and LUE 02/22: washout and vac change, LLE and LUE 02/24: washout and vac change, LLE and LUE 02/26: washout and vac change, LLE and LUE 03/01: washout and vac change, LLE and LUE 03/03: washout and vac change, LLE and LUE 03/05: vac change at bedside, LLE and LUE w/ cultures 03/07: vac change at bedside, LLE and LUE 03/08: vac change at bedside, LLE and LUE 03/10: OR for skin grafting of LUE and LLE from R-sided donor site Subjective Interval Events: - Remains on strict bedrest since skin graft in OR on 03/10 from R sided donor site - Wound vacs in place on LUE and LLE, holding suction - Pain remains well controlled with HAND STRIPER - Tolerating High calorie, high protein diet well - Now taking PO iron supplement, no BM yesterday, scheduled bowel reg. Objective Vitals: Last Value Range last 24 hrs Temperature Temp: 36.8 ??C (98.2 ??F) Temp: [36.7 ??C (98.1 ??F)-37.1 ??C (98.8 ??F)] Heart Rate Heart Rate: 98 Heart Rate: -- Blood Pressure BP: (!) 150/102 BP: (131-150)/(90-102) Respiratory Rate Resp: 16 Resp: [16] SpO2 SpO2: 98 % SpO2: [98 %-99 %] O2 Device O2 Device: None (Room air) Intake/Output: 03/11 0701 - 03/12 0700 In: 4800 [P.O.:3560; I.V.:1240] Out: 5720 [Urine:5720] Physical Exam: GEN: resting comfortably in bed, NAD HEENT: normocephalic, atraumatic CHEST: In no respiratory distress on RA CV: Tachycardic 100s, well perfused ABD: soft, nontender, nondistended EXTR: LLE lateral thigh fasciotomy wound with wound vac in place, holding suction to 125mmHg, LLE fasciotomy incision c/d/i, LUE with wound vac in place, bright green color present on white sponge thatwas not there on prior examination, holding suction to 100mmHg. No erythema. R thigh donor area covered in TAMIE bandage with minimal blood staining SKIN: WWP NEURO: AOx3, follows commands Labs: Recent Labs 03/10/22 0545 WBC 7.2 HGB 9.1* HCT 27.3* PLATELET 256 Recent Labs 03/10/22 0545 NA 142 K 4.0 CL 103 CO2 25 BUN 20 CREATININE 0.85 GLUCOSE 95 CALCIUM 9.1 MAGNESIUM 0.77 PHOS 4.6* C Diff Screen Date Value Ref Range Status 02/01/2022 Positive (A) Negative Final Comment: PCR Pos C. diff Positive (GDH positive, toxin antigen negative, toxin PCR positive) DNA from a toxigenic strain of C. difficile was detected, although the free toxin itself was not detected. These results cannot distinguish between colonization and infection. They must be interpreted within the patient???s overall clinical context. Consider other causes for diarrhea or the presence of a non-toxigenic strain. Patient needs to remain on Soap & Water Contact Precautions until discharge or approval by Infection Prevention. Abscess/Wound Aspirate Culture Date Value Ref Range Status 02/19/2022 (A) Final Rare Serratia marcescens Rare Pseudomonas aeruginosa 02/17/2022 (A) Final One colony of Serratia marcescens : Susceptibilities previously reported One colony of Pseudomonas aeruginosa : Susceptibilities previously reported 02/17/2022 (A) Final One colony of Serratia marcescens : Susceptibilities previously reported Anaerobic Culture Date Value Ref Range Status 02/19/2022 No anaerobic organisms isolated Final 02/17/2022 No anaerobic organisms isolated Final 02/17/2022 No anaerobic organisms isolated Final Tissue Culture Date Value Ref Range Status 02/09/2022 (A) Final Few Pseudomonas aeruginosa Few Serratia marcescens Susceptibilities previously reported Blood Culture Date Value Ref Range Status 02/06/2022 No growth at 5 days. Final 02/05/2022 No growth at 5 days. Final 02/01/2022 No growth at 5 days. Final Studies: No recent imaging Assessment and Plan Alix Holland is a 31 y.o. male with HTN, angioedema requiring intubation 04/21, GERD, gastritis, esophagitis, urachal cyst, and polysubstance use (EtOH, cocaine, heroin) who was admitted 01/23/2022 forcompartment syndrome and rhabdomyalysis after being found down. He is now s/p multiple fasciotomies and debridements of LLE and L forearm. Mr. Holland has had a prolonged, complicated hospital course which has been significant for renal replacement therapy secondary to rhabdomyolysis, ICU admissions, multiple debridements, and persistent transfusion requirement. He was transferred to the floor 02/10 and appears to be slowly progressing towards recovery. His wound cultures grew Pseudomonas and Serratia for which he has been covered with by Zosyn. ID consulted 02/11 and Zosyn discontinued and transitioned to cefepime. He also has C. difficile for which he is being treated with p.o. vancomycin which will continue for 10 days (until 03/01/22) following disco ntinuation of cefepime. His leukocytosis has improved. ID was again consulted on 02/22 for cefepime-resistant pseudomonas. Despite the resistence, Mr. Holland has been afebrile and without a leukocytosis so the decision was made to stop cefepime and flagyl. His last dialysis was 02/18/22, central access remains in place due to lack of peripheral access options. His Cr continues to improve, and his urine output remains high. Given his improved renal function, Nephrology recommended stopping weekly EPO, resuming a normal diet, starting vitamin D supplementation and a normal multivitamin. Patient continues to do well and has tolerated bedside wound vac changes without difficulty with most recent bedside dressing change occurring today 03/08. Cultures from 03/05 demonstrated GPCs and GNRs and speciated MRSA. Timing of skin grafting still being determined, potentially Tuesday. Due to low iron stores, patient was started on 300mg IV iron for 3 days per Nephrology recommendations now that he is off vancomycin. Following 3 days of IV iron, he will switch to oral iron supplements. Patient now POD2 from left lower and left upper extremity skin grafts from right-sided donor site. On bedside exam this morning, it was noted that the left upper extremity was bright green in color concerning for potential infection. He was immediately made NPO for potential OR management. Zosyn was started Plan: Neuro: AMERICA PO Tylenol, PO Oxycodone 10-15 PRN Q4, Zofran PRN #Polysubstance abuse, found down following fentanyl ingestion, Toxic metabolic encephalopathy, bilateral globus pallidum infarcts - Thiamine, folate supplementation - Q shift neurovascular checks - Neurology consulted 01/23, re-consulted 02/16, no changes to plan --- Expected BG evolution on MRI. No further w/u --- Re-consult neuro closer to d/c for EMG/NCS testing for peripheral neuropathy Psych: BIT (03/02): RC to follow. Expressing desire to leave room but unable to due to infectious disease restrictions. CV: Amlodipine 10mg daily - Persistent tachycardia, likely d/t increased metabolic demand from wounds and infections Resp: Encourage IS, OOB GI: Marinol 10mg BID, Lactulose BID PRN, Scheduled senna and colace FEN: F: PO ad minoo E: BMP wnl N: NPO, can have high protein high calorie diet, Vitamin C, Marinol BID Renal/: - 03/01: Ferritin 693, Total Fe 21, TIBC 185. Nephrology signed off. S/p IV iron. Oral iron supplements - Per nephrology, begin IV iron after Vancomycin course completed 03/01/22 (02/25), Stop weekly EPO (note 02/27), start vitamin D supplementation, start regular multivitamin. Vit D level in mid-May. - Will need CKD clinic follow-up - Daily weights 77.4 Heme: JAVON. Transfuse for Hgb < 7. ID: s/p antibiotics. C diff precautions for 4 weeks until Mar 29. - ID consulted 02/11, 02/17, 02/22 - S/p PO Vanc BID for c diff (02/01- 03/01/22). - S/p Cefepime (02/11 - 02/22) - can d/c due to antibiotic resistance - S/p IV flagyl q8h for c diff (02/16 - 02/22) - S/p Unasyn (01/23-01/26 and 01/29-02/01), Cefazolin (01/26-01/29 and 02/01-02/07), Zosyn (02/08-02/11) - 02/15 L Thigh wound culture: Pseudomonas, Serratia, Gram positive cocci - 02/08 and 02/09 wound cx: Pseudomonas, serratia - 03/12 - : zosyn Endo: JAVON MSK: POD 2 from skin grafting on LLE and LUE, NPO for potential OR this PM - s/p multiple fasciotomies, OR debridements, and wound vac changes - Plastics consulted 02/04, okay for primary team to close wounds - Ortho consulted 02/17, signed off, weight bearing status to be determined by primary team - Working with PT/OT 2-4x/week Prophy: Resp: OOB, IS; DVT: SQH TID, IPCs, OOB Lines/Drains/Tubes/Airways: 5F PICC. Dispo: Floor status; PT/OT consulted. OT 03/02 rec for acute rehab. Hold on OT/PT while strict bedrest Code Status: Attempt Cardiopulmonary Resuscitation - Inpatient JEFFERY Peterson Acute Care Surgery 03/12/22 Team Pager [phone] A medical student assisted me in the documentation of this note. I personally saw and evaluated the patient, reviewed all applicable documented studies, and diagnostic images. The assessment and plan were formulated with the care team at the time of the visit and in my presence. I have made edits to the above note and agree with the details above. Nancy Chahal MD Resident, General Surgery 03/12/22 Jaswinder Chung PTA - 03/12/2022 8:30 AM EDT Physical Therapy Note Pt on bedrest, will follow up as appropriate when allowed to mobilize out of bed. JASWINDER CHUNG, SVETLANA Pager: [phone] Physical Therapy Inpatient Rehabilitation Department Adrienne Tejada RN - 03/11/2022 3:00 PM EDT Pt's BP 142/97; HR 120-130s. Pt asymptomatic. MD notified. MD at bedside. No intervention given. Will continue to monitor. Nancy Chahal MD - 03/11/2022 11:48 AM EDT Acute Care Surgery Daily Progress Note Admission Date: 01/23/2022 ID: Alix Holland is a 31 y.o. male with HTN, angioedema requiring intubation 04/21, GERD, gastritis, esophagitis, urachal cyst, and polysubstance use (EtOH, cocaine, heroin) who was admitted to the MICU 01/23/2022 s/p VT arrest in the setting of being found down following fentanyl overdose and developing L forearm and L thigh compartment syndrome (s/p L forearm, L buttock, and L thigh fasciotomies) w/ subsequent rhabdomyolysis, renal failure, and hyperkalemia which required CVVH. He was transitioned to iHD and transferred to floor status 02/02, however he had persistent daily transfusion requirement from ongoing wound vac bleeding and returned to the OR x2 (02/04 and 02/05) for irrigation and debridement of fasciotomy wounds, however no focal source of bleeding was identified. He was transferred to the SICU 02/05 after L thigh wound vac filled with alexsandra blood and hgb dropped to 4.6 despite 6U pRBC. He went to IR for embolization of SGA pseudoaneurysm and to the OR for hematoma washout on 02/06. He returned to the OR for washout and debridement again on 02/08 and 02/09. He was subsequently lateralized to the ACS service and transferred to floor status on 02/10. His hospital course has also been notable for asymptomatic COVID-19 infection, C. 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 Procedures: 01/23: L thigh fasciotomy, L lower leg fasciotomy, L buttock fasciotomy, L forearm fasciotomy 01/26: Debridements and wound vac change 01/29: Debridement of fasciotomies, closure of L lower leg fasciotomy, closure of dorsal forearm fasciotomy, partial closure L thigh fasciotomy 01/31: Debridement and wound vac change 02/02: Debridement and wound vac change 02/04: Debridement and wound vac change 02/05: Debridement and wound vac change, 02/06: IR embolization of SGA pseudoaneurysm 02/06: LLE hematoma evacuation and washout 02/08: washout and debridement LLE, vac change LUE 02/09: washout and debridement LLE with vac placement 02/11: washout and vac change, LLE and LUE 02/13: washout and vac change, LLE and LUE 02/15: washout and vac change, LLE and LUE, possible drainage of L gluteal abscess 02/19: washout and vac change, LLE and LUE 02/22: washout and vac change, LLE and LUE 02/24: washout and vac change, LLE and LUE 02/26: washout and vac change, LLE and LUE 03/01: washout and vac change, LLE and LUE 03/03: washout and vac change, LLE and LUE 03/05: vac change at bedside, LLE and LUE w/ cultures 03/07: vac change at bedside, LLE and LUE 03/08: vac change at bedside, LLE and LUE 03/10: OR for skin grafting of LUE and LLE from R-sided donor site Subjective Interval Events: - Skin graft in OR of both LUE and LLE from R-sided donor site - last dose of IV Iron (300 mg) with switch to PO scheduled to begin on 03/11 - Continues to produce good urine (2.3cc/kg/hr) and Cr 0.83 (1.23) - Regular diet resumed Objective Vitals: Last Value Range last 24 hrs Temperature Temp: 36.9 ??C (98.4 ??F) Temp: [36.3 ??C (97.3 ??F)-36.9 ??C (98.4 ??F)] Heart Rate Heart Rate: 98 Heart Rate: [92-100] Blood Pressure BP: (!) 144/94 BP: (117-144)/(57-98) Respiratory Rate Resp: 16 Resp: [13-20] SpO2 SpO2: 99 % SpO2: [92 %-100 %] O2 Device O2 Device: None (Room air) Intake/Output: 03/10 0701 - 03/11 0700 In: 1465 [P.O.:720; I.V.:745] Out: 3935 [Urine:2825] Physical Exam: GEN: resting comfortably in bed, NAD HEENT: normocephalic, atraumatic CHEST: In no respiratory distress on RA CV: Tachycardic 100s, well perfused ABD: soft, nontender, nondistended EXTR: LLE lateral thigh fasciotomy wound with wound vac in place, holding suction to 125mmHg, LLE fasciotomy incision c/d/i, LUE with wound vac in place, holding suction to 100mg. No erythema. R thigh donor area covered in TAMIE bandage with minimal blood staining SKIN: WWP NEURO: AOx3, follows commands Labs: Recent Labs 03/10/22 0545 WBC 7.2 HGB 9.1* HCT 27.3* PLATELET 256 Recent Labs 03/10/22 0545 NA 142 K 4.0 CL 103 CO2 25 BUN 20 CREATININE 0.85 GLUCOSE 95 CALCIUM 9.1 MAGNESIUM 0.77 PHOS 4.6* C Diff Screen Date Value Ref Range Status 02/01/2022 Positive (A) Negative Final Comment: PCR Pos C. diff Positive (GDH positive, toxin antigen negative, toxin PCR positive) DNA from a toxigenic strain of C. difficile was detected, although the free toxin itself was not detected. These results cannot distinguish between colonization and infection. They must be interpreted within the patient???s overall clinical context. Consider other causes for diarrhea or the presence of a non-toxigenic strain. Patient needs to remain on Soap & Water Contact Precautions until discharge or approval by Infection Prevention. Abscess/Wound Aspirate Culture Date Value Ref Range Status 02/19/2022 (A) Final Rare Serratia marcescens Rare Pseudomonas aeruginosa 02/17/2022 (A) Final One colony of Serratia marcescens : Susceptibilities previously reported One colony of Pseudomonas aeruginosa : Susceptibilities previously reported 02/17/2022 (A) Final One colony of Serratia marcescens : Susceptibilities previously reported Anaerobic Culture Date Value Ref Range Status 02/19/2022 No anaerobic organisms isolated Final 02/17/2022 No anaerobic organisms isolated Final 02/17/2022 No anaerobic organisms isolated Final Tissue Culture Date Value Ref Range Status 02/09/2022 (A) Final Few Pseudomonas aeruginosa Few Serratia marcescens Susceptibilities previously reported Blood Culture Date Value Ref Range Status 02/06/2022 No growth at 5 days. Final 02/05/2022 No growth at 5 days. Final 02/01/2022 No growth at 5 days. Final Studies: No recent imaging Assessment and Plan Alix Holland is a 31 y.o. male with HTN, angioedema requiring intubation 04/21, GERD, gastritis, esophagitis, urachal cyst, and polysubstance use (EtOH, cocaine, heroin) who was admitted 01/23/2022 forcompartment syndrome and rhabdomyalysis after being found down. He is now s/p multiple fasciotomies and debridements of LLE and L forearm. Mr. Holland has had a prolonged, complicated hospital course which has been significant for renal replacement therapy secondary to rhabdomyolysis, ICU admissions, multiple debridements, and persistent transfusion requirement. He was transferred to the floor 02/10 and appears to be slowly progressing towards recovery. His wound cultures grew Pseudomonas and Serratia for which he has been covered with by Zosyn. ID consulted 02/11 and Zosyn discontinued and transitioned to cefepime. He also has C. difficile for which he is being treated with p.o. vancomycin which will continue for 10 days (until 03/01/22) following disco ntinuation of cefepime. His leukocytosis has improved. ID was again consulted on 02/22 for cefepime-resistant pseudomonas. Despite the resistence, Mr. Holland has been afebrile and without a leukocytosis so the decision was made to stop cefepime and flagyl. His last dialysis was 02/18/22, central access remains in place due to lack of peripheral access options. His Cr continues to improve, and his urine output remains high. Given his improved renal function, Nephrology recommended stopping weekly EPO, resuming a normal diet, starting vitamin D supplementation and a normal multivitamin. Patient continues to do well and has tolerated bedside wound vac changes without difficulty with most recent bedside dressing change occurring today 03/08. Cultures from 03/05 demonstrated GPCs and GNRs and speciated MRSA. Timing of skin grafting still being determined, potentially Tuesday. Due to low iron stores, patient was started on 300mg IV iron for 3 days per Nephrology recommendations now that he is off vancomycin. Following 3 days of IV iron, he will switch to oral iron supplements. POD 1 from left lower and left upper skin graft. Wound vacs continue to hold suction. Patient is to remain on strict bedrest until Tuesday in order to prevent shearing. If any alarming from wound vac, immediately page [phone]. S/p 3 days of IV iron, now on oral iron. Plan: Neuro: AMERICA PO Tylenol, PO Oxycodone 10-15 PRN Q4, Zofran PRN #Polysubstance abuse, found down following fentanyl ingestion, Toxic metabolic encephalopathy, bilateral globus pallidum infarcts - Thiamine, folate supplementation - Q shift neurovascular checks - Neurology consulted 01/23, re-consulted 02/16, no changes to plan --- Expected BG evolution on MRI. No further w/u --- Re-consult neuro closer to d/c for EMG/NCS testing for peripheral neuropathy Psych: BIT (03/02): RC to follow. Expressing desire to leave room but unable to due to infectious disease restrictions. CV: Amlodipine 10mg daily - Persistent tachycardia, likely d/t increased metabolic demand from wounds and infections Resp: Encourage IS, OOB GI: Marinol 10mg BID, Lactulose BID PRN, Scheduled senna and colace FEN: F: PO ad minoo E: BMP wnl N: Regular diet, Vitamin C, Marinol BID Renal/: - 03/01: Ferritin 693, Total Fe 21, TIBC 185. Nephrology signed off. S/p IV iron. Oral iron supplements - Per nephrology, begin IV iron after Vancomycin course completed 03/01/22 (02/25), Stop weekly EPO (note 02/27), start vitamin D supplementation, start regular multivitamin. Vit D level in mid-May. - Will need CKD clinic follow-up - Daily weights 77.4 Heme: JAVON. Transfuse for Hgb < 7. ID: s/p antibiotics. C diff precautions for 4 weeks until Mar 29. - ID consulted 02/11, 02/17, 02/22 - S/p PO Vanc BID for c diff (02/01- 03/01/22). - S/p Cefepime (02/11 - 02/22) - can d/c due to antibiotic resistance - S/p IV flagyl q8h for c diff (02/16 - 02/22) - S/p Unasyn (01/23-01/26 and 01/29-02/01), Cefazolin (01/26-01/29 and 02/01-02/07), Zosyn (02/08-02/11) - 02/15 L Thigh wound culture: Pseudomonas, Serratia, Gram positive cocci - 02/08 and 02/09 wound cx: Pseudomonas, serratia Endo: JAVON MSK: POD 1 from skin grafting on LLE and LUE, Strict BEDREST, NPO at 0005 on 03/14 for OR. If any alarming, page [phone]. - s/p multiple fasciotomies, OR debridements, and wound vac changes - Plastics consulted 02/04, okay for primary team to close wounds - Ortho consulted 02/17, signed off, weight bearing status to be determined by primary team - Working with PT/OT 2-4x/week Prophy: Resp: OOB, IS; DVT: SQH TID, IPCs, OOB Lines/Drains/Tubes/Airways: 5F PICC. Dispo: Floor status; PT/OT consulted. OT 03/02 rec for acute rehab. Hold on OT/PT while strict bedrest Code Status: Attempt Cardiopulmonary Resuscitation - Inpatient Nancy Chahal MD Resident, General Surgery 03/11/22 Tasha Matthews OTA - 03/11/2022 8:03 AM EDT 03/11/22 0803 Evaluation & Treatment Document Type contact Total Minutes, Occupational Therapy 0 Comment, Session Not Performed Chart reviewed. Per MD Note, pt on bedrest until Tuesday post vac removal. Will follow up for treatment when appropriate. Veto Hidalgo MD - 03/10/2022 7:54 PM EDT General Surgery Resident Inpatient postop check ID: Alix Holland is a 31 y.o. male with LLE and and LUE wounds after fasciotomies performed by Orthopedics status post multiple debridements and wound VAC changes who underwent a split thickness skingraft of both his left upper extremity and left lower extremity wounds from a right-sided donor sitenow postop day 0. Subjective: - Doing well postoperatively with no specific concerns or complaints - Pain is well controlled -Sitting in the room with his dad questioning future plans, otherwise doing well O: Last value Range last 24hrs Temperature Temp: 36.3 ??C (97.3 ??F) Temp: [36.3 ??C (97.3 ??F)-36.8 ??C (98.2 ??F)] Heart Rate Heart Rate: 98 Heart Rate: [92-100] Blood Pressure BP: 138/87 BP: (117-166)/(57-105) Respiratory Rate Resp: 16 Resp: [13-20] SpO2 SpO2: 98 % SpO2: [92 %-100 %] 03/09 0701 - 03/10 0700 In: 1500 [P.O.:1500] Out: 4200 [Urine:4200] Physical Exam: General: NAD, resting comfortably, pleasant, conversant HEENT: PERRL, anicteric sclerae Pulm: Breathing comfortably on room air Skin: warm, dry Ext: Both left upper and left lower wound vacs holding suction, minimally tender no gross blood in VAC or erythema surrounding VAC Neuro: CN 2-12 grossly intact, nonfocal Recent Labs 03/10/22 0545 WBC 7.2 HGB 9.1* HCT 27.3* PLATELET 256 Recent Labs 03/10/22 0545 NA 142 K 4.0 CL 103 CO2 25 BUN 20 CREATININE 0.85 GLUCOSE 95 CALCIUM 9.1 MAGNESIUM 0.77 PHOS 4.6* ASSESSMENT: Alix Holland is a 31 y.o. male with LLE and and LUE wounds after fasciotomies performed by Orthopedics status post multiple debridements and wound VAC changes who underwent a split thickness skin graft of both his left upper extremity and left lower extremity wounds from a right-sided donor site now postop day 0. PLAN: -Doing well postoperatively, maintain vacs to suction (left upper extremity 100 mmHg, left lower extremity 125 mmHg) -If concerns about VAC particularly not holding suction please page [phone] immediately given that thiswill affect skin graft take -High-protein high-calorie low Phos diet -Plan to return to the operating room on Tuesday for VAC removal, bedrest until then -HAND STRIPER for pain control will wean as able Veto Hidalgo MD PGY 5 Acute care surgery pager [phone] Marylou Retana RN - 03/10/2022 7:12 PM EDT Patient arrived back to unit from PACU @ approximately 1630. VSS on RA, drowsy but arouses to voice.HAND STRIPER in place, pt continues to report 10/10 pain. Wound vacs to graft site holding appropriate suction. Donor site on right thigh dressing C/D/I. Maureen Almeida RN - 03/10/2022 3:14 PM EDT Pt arrived to PACU from OR in bed. Attached to monitors and alarms set appropriately. L arm skin graft dressing intact, wound vac to 100 mmHg with no output in canister. L leg skin graft dressing intact, wound vac to 125 mmHg with no output in canister. R leg tamie wrapped around donor site, CDI. VSS. Report given to ÁNGEL Hickman. Per surgery team request this RN verbally reported to Marylou that if thewound vac's alarm the team needs to be immediately paged to bedside to preserve the grafts. Nancy Chahal MD - 03/10/2022 8:55 AM EDT Acute Care Surgery Daily Progress Note Admission Date: 01/23/2022 ID: Alix Holland is a 31 y.o. male with HTN, angioedema requiring intubation 04/21, GERD, gastritis, esophagitis, urachal cyst, and polysubstance use (EtOH, cocaine, heroin) who was admitted to the MICU 01/23/2022 s/p VT arrest in the setting of being found down following fentanyl overdose and developing L forearm and L thigh compartment syndrome (s/p L forearm, L buttock, and L thigh fasciotomies) w/ subsequent rhabdomyolysis, renal failure, and hyperkalemia which required CVVH. He was transitioned to iHD and transferred to floor status 02/02, however he had persistent daily transfusion requirement from ongoing wound vac bleeding and returned to the OR x2 (02/04 and 02/05) for irrigation and debridement of fasciotomy wounds, however no focal source of bleeding was identified. He was transferred to the SICU 02/05 after L thigh wound vac filled with alexsandra blood and hgb dropped to 4.6 despite 6U pRBC. He went to IR for embolization of SGA pseudoaneurysm and to the OR for hematoma washout on 02/06. He returned to the OR for washout and debridement again on 02/08 and 02/09. He was subsequently lateralized to the ACS service and transferred to floor status on 02/10. His hospital course has also been notable for asymptomatic COVID-19 infection, C. 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 Procedures: 01/23: L thigh fasciotomy, L lower leg fasciotomy, L buttock fasciotomy, L forearm fasciotomy 01/26: Debridements and wound vac change 01/29: Debridement of fasciotomies, closure of L lower leg fasciotomy, closure of dorsal forearm fasciotomy, partial closure L thigh fasciotomy 01/31: Debridement and wound vac change 02/02: Debridement and wound vac change 02/04: Debridement and wound vac change 02/05: Debridement and wound vac change, 02/06: IR embolization of SGA pseudoaneurysm 02/06: LLE hematoma evacuation and washout 02/08: washout and debridement LLE, vac change LUE 02/09: washout and debridement LLE with vac placement 02/11: washout and vac change, LLE and LUE 02/13: washout and vac change, LLE and LUE 02/15: washout and vac change, LLE and LUE, possible drainage of L gluteal abscess 02/19: washout and vac change, LLE and LUE 02/22: washout and vac change, LLE and LUE 02/24: washout and vac change, LLE and LUE 02/26: washout and vac change, LLE and LUE 03/01: washout and vac change, LLE and LUE 03/03: washout and vac change, LLE and LUE 03/05: vac change at bedside, LLE and LUE w/ cultures 03/07: vac change at bedside, LLE and LUE 03/08: vac change at bedside, LLE and LUE 03/10: OR for skin grafting of LUE and potentially LLE Subjective Interval Events: - Wound Vac mo pad changed at bedside yesterday - Continues to produce good urine (2.3cc/kg/hr) and Cr 0.83 (1.23) - IV Iron started (300mg) w/ plan to switch to PO on 03/11 - NPO at midnight in anticipation of OR for skin grafting today - Seen by BIT yesterday - Stable Hgb 9.1 (9.1), WBC 7.2 (6.5), Phos elevated at 4.6 (5.1) Objective Vitals: Last Value Range last 24 hrs Temperature Temp: 36.8 ??C (98.2 ??F) Temp: [36.6 ??C (97.8 ??F)-37.4 ??C (99.3 ??F)] Heart Rate Heart Rate: (!) 124 Heart Rate: -- Blood Pressure BP: (!) 147/95 BP: (130-166)/(83-115) Respiratory Rate Resp: 16 Resp: [16-18] SpO2 SpO2: 92 % SpO2: [92 %-100 %] O2 Device O2 Device: None (Room air) Intake/Output: 03/09 0701 - 03/10 0700 In: 1500 [P.O.:1500] Out: 4200 [Urine:4200] Physical Exam: GEN: resting comfortably in bed, NAD HEENT: normocephalic, atraumatic CHEST: In no respiratory distress on RA CV: Tachycardic 100s, well perfused ABD: soft, nontender, nondistended EXTR: LLE lateral thigh fasciotomy wound with wound vac in place, suture x1 at superior aspect in tunnel, LLE fasciotomy incision c/d/i, LUE with wound vac in place. SKIN: WWP NEURO: AOx3, follows commands Labs: Recent Labs 03/10/22 0545 WBC 7.2 HGB 9.1* HCT 27.3* PLATELET 256 Recent Labs 03/10/22 0545 NA 142 K 4.0 CL 103 CO2 25 BUN 20 CREATININE 0.85 GLUCOSE 95 CALCIUM 9.1 MAGNESIUM 0.77 PHOS 4.6* C Diff Screen Date Value Ref Range Status 02/01/2022 Positive (A) Negative Final Comment: PCR Pos C. diff Positive (GDH positive, toxin antigen negative, toxin PCR positive) DNA from a toxigenic strain of C. difficile was detected, although the free toxin itself was not detected. These results cannot distinguish between colonization and infection. They must be interpreted within the patient???s overall clinical context. Consider other causes for diarrhea or the presence of a non-toxigenic strain. Patient needs to remain on Soap & Water Contact Precautions until discharge or approval by Infection Prevention. Abscess/Wound Aspirate Culture Date Value Ref Range Status 02/19/2022 (A) Final Rare Serratia marcescens Rare Pseudomonas aeruginosa 02/17/2022 (A) Final One colony of Serratia marcescens : Susceptibilities previously reported One colony of Pseudomonas aeruginosa : Susceptibilities previously reported 02/17/2022 (A) Final One colony of Serratia marcescens : Susceptibilities previously reported Anaerobic Culture Date Value Ref Range Status 02/19/2022 No anaerobic organisms isolated Final 02/17/2022 No anaerobic organisms isolated Final 02/17/2022 No anaerobic organisms isolated Final Tissue Culture Date Value Ref Range Status 02/09/2022 (A) Final Few Pseudomonas aeruginosa Few Serratia marcescens Susceptibilities previously reported Blood Culture Date Value Ref Range Status 02/06/2022 No growth at 5 days. Final 02/05/2022 No growth at 5 days. Final 02/01/2022 No growth at 5 days. Final Studies: No recent imaging Assessment and Plan Alix Holland is a 31 y.o. male with HTN, angioedema requiring intubation 04/21, GERD, gastritis, esophagitis, urachal cyst, and polysubstance use (EtOH, cocaine, heroin) who was admitted 01/23/2022 forcompartment syndrome and rhabdomyalysis after being found down. He is now s/p multiple fasciotomies and debridements of LLE and L forearm. Mr. Holland has had a prolonged, complicated hospital course which has been significant for renal replacement therapy secondary to rhabdomyolysis, ICU admissions, multiple debridements, and persistent transfusion requirement. He was transferred to the floor 02/10 and appears to be slowly progressing towards recovery. His wound cultures grew Pseudomonas and Serratia for which he has been covered with by Zosyn. ID consulted 02/11 and Zosyn discontinued and transitioned to cefepime. He also has C. difficile for which he is being treated with p.o. vancomycin which will continue for 10 days (until 03/01/22) following disco ntinuation of cefepime. His leukocytosis has improved. ID was again consulted on 02/22 for cefepime-resistant pseudomonas. Despite the resistence, Mr. Holland has been afebrile and without a leukocytosis so the decision was made to stop cefepime and flagyl. His last dialysis was 02/18/22, central access remains in place due to lack of peripheral access options. His Cr continues to improve, and his urine output remains high. Given his improved renal function, Nephrology recommended stopping weekly EPO, resuming a normal diet, starting vitamin D supplementation and a normal multivitamin. Patient continues to do well and has tolerated bedside wound vac changes without difficulty with most recent bedside dressing change occurring today 03/08. Cultures from 03/05 demonstrated GPCs and GNRs and speciated MRSA. Timing of skin grafting still being determined, potentially Tuesday. Due to low iron stores, patient was started on 300mg IV iron for 3 days per Nephrology recommendations now that he is off vancomycin. Following 3 days of IV iron, he will switch to oral iron supplements. Wound vac mo pads were changed on both the LLE and LUE due to blockage yesterday. He was made NPO at midnight in anticipation of OR for skin grafting today. Decision will be made intra-operatively asto if only the LUE or both extremities are grafted. Plan: Neuro: AMERICA PO Tylenol, PO Oxycodone 10-15 PRN Q4, Zofran PRN #Polysubstance abuse, found down following fentanyl ingestion, Toxic metabolic encephalopathy, bilateral globus pallidum infarcts - Thiamine, folate supplementation - Q shift neurovascular checks - Neurology consulted 01/23, re-consulted 02/16, no changes to plan --- Expected BG evolution on MRI. No further w/u --- Re-consult neuro closer to d/c for EMG/NCS testing for peripheral neuropathy Psych: BIT (03/02): RC to follow. Expressing desire to leave room but unable to due to infectious disease restrictions. CV: Amlodipine 10mg daily - Persistent tachycardia, likely d/t increased metabolic demand from wounds and infections Resp: Encourage IS, OOB GI: Marinol 10mg BID, Lactulose BID PRN FEN: F: PO ad minoo E: BMP wnl N: NPO, regular diet once back from OR, Vitamin C, Marinol BID - Nutrition (03/01): recommend limiting NPO time for nutritional concerns in addition to increased protein intake and milk with meals. Senna and colace as IV Iron causes constipation Renal/: - 03/01: Ferritin 693, Total Fe 21, TIBC 185. Nephrology signed off. Recommended (03/02) IV iron 03/08 - 03/10 300mg daily followed by oral iron supplements w/ bowel reg. - Per nephrology, begin IV iron after Vancomycin course completed 03/01/22 (02/25), Stop weekly EPO (note 02/27), start vitamin D supplementation, start regular multivitamin. Vit D level in mid-May. - Will need CKD clinic follow-up - Daily weights 77.4 Heme: JAVON. Transfuse for Hgb < 7. ID: s/p antibiotics. C diff precautions for 4 weeks until Mar 29. - ID consulted 02/11, 02/17, 02/22 - S/p PO Vanc BID for c diff (02/01- 03/01/22). - S/p Cefepime (02/11 - 02/22) - can d/c due to antibiotic resistance - S/p IV flagyl q8h for c diff (02/16 - 02/22) - S/p Unasyn (01/23-01/26 and 01/29-02/01), Cefazolin (01/26-01/29 and 02/01-02/07), Zosyn (02/08-02/11) - 02/15 L Thigh wound culture: Pseudomonas, Serratia, Gram positive cocci - 02/08 and 02/09 wound cx: Pseudomonas, serratia Endo: JAVON MSK: To OR for skin grafting - s/p multiple fasciotomies, OR debridements, and wound vac changes - Plastics consulted 02/04, okay for primary team to close wounds - Ortho consulted 02/17, signed off, weight bearing status to be determined by primary team - Working with PT/OT 2-4x/week Prophy: Resp: OOB, IS; DVT: SQH TID, IPCs, OOB Lines/Drains/Tubes/Airways: 5F PICC. Dispo: Floor status; PT/OT consulted. OT 03/02 rec for acute rehab Code Status: Attempt Cardiopulmonary Resuscitation - Inpatient Alonzo Oakley, 4 03/10/22 Acute Care Surgery Team Pager [phone] A medical student assisted me in the documentation of this note. I personally saw and evaluated the patient, reviewed all applicable documented studies, and diagnostic images. The assessment and plan were formulated with the care team at the time of the visit and in my presence. I have made edits to the above note and agree with the details above. Nancy Chahal MD Resident, General Surgery 03/10/22 Marylou Retana RN - 03/09/2022 4:54 PM EDT Hypertensive and tachycardic. Pain 04/10, managed with scheduled and prn medications. Vac dressings changed by team this afternoon. Up to chair with therapy. Voiding adequate amounts. NPO @ 0000 Nancy Chahal MD - 03/09/2022 3:39 PM EDT Acute Care Surgery Daily Progress Note Admission Date: 01/23/2022 ID: Alix Holland is a 31 y.o. male with HTN, angioedema requiring intubation 04/21, GERD, gastritis, esophagitis, urachal cyst, and polysubstance use (EtOH, cocaine, heroin) who was admitted to the MICU 01/23/2022 s/p [place] arrest in the setting of being found down following fentanyl overdose and developing L forearm and L thigh compartment syndrome (s/p L forearm, L buttock, and L thigh fasciotomies) w/ subsequent rhabdomyolysis, renal failure, and hyperkalemia which required CVVH. He was transitioned to iHD and transferred to floor status 02/02, however he had persistent daily transfusion requirement from ongoing wound vac bleeding and returned to the OR x2 (02/04 and 02/05) for irrigation and debridement of fasciotomy wounds, however no focal source of bleeding was identified. He was transferred to the SICU 02/05 after L thigh wound vac filled with alexsandra blood and hgb dropped to 4.6 despite 6U pRBC. He went to IR for embolization of SGA pseudoaneurysm and to the OR for hematoma washout on 02/06. He returned to the OR for washout and debridement again on 02/08 and 02/09. He was subsequently lateralized to the ACS service and transferred to floor status on 02/10. His hospital course has also been notable for asymptomatic COVID-19 infection, C. 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 Procedures: 01/23: L thigh fasciotomy, L lower leg fasciotomy, L buttock fasciotomy, L forearm fasciotomy 01/26: Debridements and wound vac change 01/29: Debridement of fasciotomies, closure of L lower leg fasciotomy, closure of dorsal forearm fasciotomy, partial closure L thigh fasciotomy 01/31: Debridement and wound vac change 02/02: Debridement and wound vac change 02/04: Debridement and wound vac change 02/05: Debridement and wound vac change, 02/06: IR embolization of SGA pseudoaneurysm 02/06: LLE hematoma evacuation and washout 02/08: washout and debridement LLE, vac change LUE 02/09: washout and debridement LLE with vac placement 02/11: washout and vac change, LLE and LUE 02/13: washout and vac change, LLE and LUE 02/15: washout and vac change, LLE and LUE, possible drainage of L gluteal abscess 02/19: washout and vac change, LLE and LUE 02/22: washout and vac change, LLE and LUE 02/24: washout and vac change, LLE and LUE 02/26: washout and vac change, LLE and LUE 03/01: washout and vac change, LLE and LUE 03/03: washout and vac change, LLE and LUE 03/05: vac change at bedside, LLE and LUE w/ cultures 03/07: vac change at bedside, LLE and LUE 03/08: vac change at bedside, LLE and LUE Subjective Interval Events: - Wound Vac changed yesterday at bedside. - Wound Vac mo pad changed overnight - Continues to produce urine - IV Iron started (300mg) w/ plan to switch to PO on 03/11 Objective Vitals: Last Value Range last 24 hrs Temperature Temp: 36.6 ??C (97.8 ??F) Temp: [36.6 ??C (97.8 ??F)-37.1 ??C (98.8 ??F)] Heart Rate Heart Rate: (!) 124 Heart Rate: [116-124] Blood Pressure BP: (!) 148/101 BP: (140-162)/(93-109) Respiratory Rate Resp: 16 Resp: [14-18] SpO2 SpO2: 98 % SpO2: [98 %-100 %] O2 Device O2 Device: None (Room air) Intake/Output: 08/08 0701 - 03/09 0700 In: 2360 [P.O.:2350; I.V.:10] Out: 3825 [Urine:3825] Physical Exam: GEN: resting comfortably in bed, NAD HEENT: normocephalic, atraumatic CHEST: In no respiratory distress on RA CV: Tachycardic 100s, well perfused ABD: soft, nontender, nondistended EXTR: LLE lateral thigh fasciotomy wound with wound vac in place, sutures at superior aspect, LLE fasciotomy incision c/d/i, LUE with wound vac in place. SKIN: WWP NEURO: AOx3, follows commands Labs: No results for input(s): WBC, HGB, HCT, PLATELET, PT, INR, PTT in the last 72 hours. No results for input(s): NA, K, CL, CO2, BUN, CREATININE, GLUCOSE, CALCIUM, MAGNESIUM, PHOS in the last 72 hours. C Diff Screen Date Value Ref Range Status 02/01/2022 Positive (A) Negative Final Comment: PCR Pos C. diff Positive (GDH positive, toxin antigen negative, toxin PCR positive) DNA from a toxigenic strain of C. difficile was detected, although the free toxin itself was not detected. These results cannot distinguish between colonization and infection. They must be interpreted within the patient???s overall clinical context. Consider other causes for diarrhea or the presence of a non-toxigenic strain. Patient needs to remain on Soap & Water Contact Precautions until discharge or approval by Infection Prevention. Abscess/Wound Aspirate Culture Date Value Ref Range Status 02/19/2022 (A) Final Rare Serratia marcescens Rare Pseudomonas aeruginosa 02/17/2022 (A) Final One colony of Serratia marcescens : Susceptibilities previously reported One colony of Pseudomonas aeruginosa : Susceptibilities previously reported 02/17/2022 (A) Final One colony of Serratia marcescens : Susceptibilities previously reported Anaerobic Culture Date Value Ref Range Status 02/19/2022 No anaerobic organisms isolated Final 02/17/2022 No anaerobic organisms isolated Final 02/17/2022 No anaerobic organisms isolated Final Tissue Culture Date Value Ref Range Status 02/09/2022 (A) Final Few Pseudomonas aeruginosa Few Serratia marcescens Susceptibilities previously reported Blood Culture Date Value Ref Range Status 02/06/2022 No growth at 5 days. Final 02/05/2022 No growth at 5 days. Final 02/01/2022 No growth at 5 days. Final Studies: No recent imaging Assessment and Plan Alix Holland is a 31 y.o. male with HTN, angioedema requiring intubation 04/21, GERD, gastritis, esophagitis, urachal cyst, and polysubstance use (EtOH, cocaine, heroin) who was admitted 01/23/2022 forcompartment syndrome and rhabdomyalysis after being found down. He is now s/p multiple fasciotomies and debridements of LLE and L forearm. Mr. Holland has had a prolonged, complicated hospital course which has been significant for renal replacement therapy secondary to rhabdomyolysis, ICU admissions, multiple debridements, and persistent transfusion requirement. He was transferred to the floor 02/10 and appears to be slowly progressing towards recovery. His wound cultures grew Pseudomonas and Serratia for which he has been covered with by Zosyn. ID consulted 02/11 and Zosyn discontinued and transitioned to cefepime. He also has C. difficile for which he is being treated with p.o. vancomycin which will continue for 10 days (until 03/01/22) following disco ntinuation of cefepime. His leukocytosis has improved. ID was again consulted on 02/22 for cefepime-resistant pseudomonas. Despite the resistence, Mr. Holland has been afebrile and without a leukocytosis so the decision was made to stop cefepime and flagyl. His last dialysis was 02/18/22, central access remains in place due to lack of peripheral access options. His Cr continues to improve, and his urine output remains high. Given his improved renal function, Nephrology recommended stopping weekly EPO, resuming a normal diet, starting vitamin D supplementation and a normal multivitamin. Patient continues to do well and has tolerated bedside wound vac changes without difficulty with most recent bedside dressing change occurring today 03/08. Cultures from 03/05 demonstrated GPCs and GNRs and speciated MRSA. Timing of skin grafting still being determined, potentially Tuesday. Due to low iron stores, patient was started on 300mg IV iron for 3 days per Nephrology recommendations now that he is off vancomycin. Following 3 days of IV iron, he will switch to oral iron supplements. Wound vac mo pads were changed on both the LLE and LUE due to blockage. Plan for skin grafting on 03/10 (tomorrow) so he will be NPO at midnight. Plan: Neuro: [place] PO Tylenol, PO Oxycodone 10-15 PRN Q4, Zofran PRN #Polysubstance abuse, found down following fentanyl ingestion, Toxic metabolic encephalopathy, bilateral globus pallidum infarcts - Thiamine, folate supplementation - Q shift neurovascular checks - Neurology consulted 01/23, re-consulted 02/16, no changes to plan --- Expected BG evolution on MRI. No further w/u --- Re-consult neuro closer to d/c for EMG/NCS testing for peripheral neuropathy Psych: BIT (03/02): RC to follow. Expressing desire to leave room but unable to due to infectious disease restrictions. CV: Amlodipine 10mg daily - Persistent tachycardia, likely d/t increased metabolic demand from wounds and infections Resp: Encourage IS, OOB GI: Marinol 10mg BID, Lactulose BID PRN FEN: F: PO ad minoo E: BMP wnl for several days, DC labs N: Regular diet, Vitamin C, Marinol BID - Nutrition (03/01): recommend limiting NPO time for nutritional concerns in addition to increased protein intake and milk with meals. Senna and colace as IV Iron causes constipation Renal/: - 03/01: Ferritin 693, Total Fe 21, TIBC 185. Nephrology signed off. Recommended (03/02) IV iron 03/08 - 03/10 300mg daily followed by oral iron supplements w/ bowel reg. - Per nephrology, begin IV iron after Vancomycin course completed 03/01/22 (02/25), Stop weekly EPO (note 02/27), start vitamin D supplementation, start regular multivitamin. Vit D level in mid-May. - Will need CKD clinic follow-up - Daily weights 77.4 Heme: JAVON. Transfuse for Hgb < 7. ID: s/p antibiotics. C diff precautions for 4 weeks until Mar 29. - ID consulted 02/11, 02/17, 02/22 - S/p PO Vanc BID for c diff (02/01- 03/01/22). - S/p Cefepime (02/11 - 02/22) - can d/c due to antibiotic resistance - S/p IV flagyl q8h for c diff (02/16 - 02/22) - S/p Unasyn (01/23-01/26 and 01/29-02/01), Cefazolin (01/26-01/29 and 02/01-02/07), Zosyn (02/08-02/11) - 02/15 L Thigh wound culture: Pseudomonas, Serratia, Gram positive cocci - 02/08 and 02/09 wound cx: Pseudomonas, serratia Endo: JAVON MSK: Lilypad changed at bedside. Plan for grafting Tuesday (03/10). - s/p multiple fasciotomies, OR debridements, and wound vac changes - Plastics consulted 02/04, okay for primary team to close wounds - Ortho consulted 02/17, signed off, weight bearing status to be determined by primary team - Working with PT/OT 2-4x/week Prophy: Resp: OOB, IS; DVT: SQH TID, IPCs, OOB Lines/Drains/Tubes/Airways: 5F PICC. Dispo: Floor status; PT/OT consulted. OT 03/02 rec for acute rehab Code Status: Attempt Cardiopulmonary Resuscitation - Inpatient Norbert Vega, MS4 03/09/22 Acute Care Surgery [id number] Nancy Chahal MD PGY-1 03/09/22 Acute Care Surgery [id number] Tasha Matthews OTA - 03/09/2022 10:05 AM EDT Occupational Therapy Treatment Note Treatment Number OT: 7 Patient Dx: Per note: Alix Holland is a 31 y.o. male with HTN, angioedema requiring intubation 04/21, GERD, gastritis, esophagitis, urachal cyst, and polysubstance use (EtOH, cocaine, heroin) who was admitted to the MICU 01/23/2022 s/p [place] arrest in the setting of being found down following fentanyloverdose and developing L forearm and L thigh compartment syndrome (s/p L forearm, L buttock, and L thigh fasciotomies) w/ subsequent rhabdomyolysis, renal failure, and hyperkalemia which required CVVH. ?? He was transitioned to iHD and transferred to floor status 02/02, however he had persistent daily transfusion requirement from ongoing wound vac bleeding and returned to the OR x2 (02/04 and 02/05) for irrigation and debridement of fasciotomy wounds, however no focal source of bleeding was identified. 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 He returned to the OR for washout and debridement again on 02/08 and 02/09. He was subsequently lateralized to the ACS service and transferred to floor status on 02/10. ?? His hospital course has also been notable for asymptomatic COVID-19 infection, C. 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 Procedures: 01/23: L thigh fasciotomy, L lower leg fasciotomy, L buttock fasciotomy, L forearm fasciotomy 01/26: Debridements and wound vac change 01/29: Debridement of fasciotomies, closure of L lower leg fasciotomy, closure of dorsal forearm fasciotomy, partial closure L thigh fasciotomy 01/31: Debridement and wound vac change 02/02: Debridement and wound vac change 02/04: Debridement and wound vac change 02/05: Debridement and wound vac change, 02/06:??IR embolization of SGA pseudoaneurysm 02/06:??LLE hematoma evacuation and washout 02/08:??washout and debridement LLE, vac change LUE 02/09:??washout and debridement LLE with vac placement 02/11: washout and vac change, LLE and LUE 02/13: washout and vac change, LLE and LUE 02/15: washout and vac change, LLE and LUE, possible drainage of L gluteal abscess 02/19: washout and vac change, LLE and LUE 02/22: washout and vac change, LLE and LUE ?? Social History: Patient lives in [place], [place] with his dad. Home Setup: [address] [facility], 2 level home, bedroom on 1st level, bathroom available on 1st level, has a tub shower downstairs. DME: none Baseline ADL/Mobility: Pt reports he was independent w/ ADL's and IADL's, had worked for a [employer]. He enjoys hunting and fishing. He reports he likes country music ?? Interval History: No acute events Precautions/Special Considerations: SOAP/WATER; fall risk, LUE/LLE WBAT, L forearm wound vac, L thigh wound vac S: I'm on the bedpan O: Patient seen for skilled OT treatment, and demonstrated the following: ?? Cognition: ?? Behavior / Mood: awake, alert, flat affect, agreeable ?? Alert and oriented to: person, date, place, situation ?? Follows commands: 1 step, 100% of the time, requires increased time and requires repetition ?? Attention: WFL ?? Safety awareness: decreased insight into deficits Self-care/Functional Mobility: ?? Resting in bed, agreeable to OT. Pt on bedpan ?? Rolled independently in bed, max A for cleanup ?? Supine to sit with supervision from flat bed. Increased effort noted ?? Educated and provided pt with LB adaptive equipment. Pt demonstrated ability to doff socks with laboratory worker and don socks with sock aid ?? Performed 3 sit to stands with min A x2 from bed to walker ?? Performed stand step transfer from bed to recliner chair with min A x2 ?? Pt left in recliner chair at end of session with all needs within reach. RN aware Vitals: Stable on RA Pain: No complaints throughout session Education: Pt/family/caregiver education ongoing regarding: Role of occupational therapy/rehabilitation, ADL, Exercise, Positioning, Precautions/Protocol, Functional Mobility, Balance, Recommendations and Discharge planning. Staff Communication: Patient status, treatment, and mobility recommendations discussed with nursing/other staff ASSESSMENT: Pt seen for continuation of OT plan of care. Pt on bedpan on arrival- encouraged commodetransfers during the daytime. Performed bed mobility, LB dressing tasks with adaptive equipment, sitto stands and functional mobility. Pt is motivated to work with therapy, but limited by fatigue and d ecreased strength. Pt will require rehab when medically ready to maximize independence in ADLs/IADLsand safety. Anticipated Discharge Disposition (OT): acute rehabilitation facility Equipment Needs Upon Discharge (OT): to be determined Other Recommendations: ?? Utilize upright chair position using bed features or transfer to recliner chair as appropriate with mechanical lift (Once bedrest orders have been lifted) ?? Encourage participation in ADL's by providing set up A on tray table and physical assist only as needed. ?? Monitor ROM of R fingers (encourage active and passive flexion and extension of fingers) General Recommendations for Patients Commode/bathroom for toileting when able to do so safely Utilize upright chair position using bed features or transfer to recliner chair as appropriate. Encourage participation in ADL's by providing set up A on tray table and physical assist only as needed Lights on blinds open during day Utilize upright chair position using bed features or transfer to recliner chair as appropriate with mechanical lift (Once bedrest orders have been lifted) Encourage participation in ADL's by providing set up A on tray table and physical assist only as needed. Monitor ROM of R fingers (encourage active and passive flexion and extension of fingers) Goals to be achieved by 03/08/22: -Patient will don/doff UB clothing with supervision seated -Patient will don/doff LB clothing with Min A, seated, with AE, as needed -Patient will complete toileting tasks (hygiene, clothing management, transfers) with Min A and withAE, as needed -Patient will ambulate household distances with CGA and with AD, as needed -Patient will complete UB/LB sponge bathing tasks with supervision, while seated with AE, as needed -Patient will complete grooming task (comb hair, brush teeth, shave) with supervision Therapy Frequency (OT): 2-4 times/wk Total Minutes, Occupational Therapy: 32 ([facility] x2 ([phone]) Pager: [phone] PEG Cole Occupational Therapy Rehabilitation Department Tanesha Patel RN - 03/09/2022 7:44 AM EDT OUTCOME EVALUATION NOTE: ?? OUTCOME SUMMARY: Pt AOx4. PO Oxycodone??and Tylenol??for pain. BP and HR had been elevated, asymptomatic.??Dressings had been CDI. LLE Wound vac had been going off due to blockage, changed the mo pad. Double lumen PICC??capped. Slept??on and off??throughout the night. ? PLAN MOVING FORWARD: Will be NPO for tonight. Scheduled skin grafting of left arm on 03/10 Pain management ? INDIVIDUALIZED FALL PREVENTION INTERVENTIONS: ?? Patient-specific fall risk factors per assessment: [current deficits]:?Hospital??environment,IV lines, generalized weakness ?? Assistance [level of assistance required for transfers and ambulation]:?? 2A/Lift ?? Supervision [direct monitoring required during toileting and ADLs]:?Hands??on ?? Surveillance [continuous indirect monitoring]: Purposeful??rounding ?? CARE PLAN GOAL OUTCOME EVALUATION:? Ongoing Denilson Muniz - 03/08/2022 3:14 PM EDT [employer] Encounter Note Patient Name: Alix Holland : [id number] MR#: [id number] Admit Date: 01/23/2022 12:29 AM Hospital Day 44 days Narrative:Visited to introduce and assess acceptance of [employer] services.Patient was not available and I will visit an other time. Assessment: Intervention and Outcome: Follow-up: Time in Direct Care: Denilson Muniz 03/08/2022 Jaswinder Chung PTA - 03/08/2022 2:55 PM EDT Physical Therapy Note Treatment Number PT: 6 Patient profile: Alix Holland is a 31 y.o.??gentleman admitted to the MICU on 01/23/22 after being found down and encephalopathic by family with verbal reports of Fentanyl ingestion; this was followedby witnessed in-hospital [place] cardiac arrest at the receiving ED (hyperkalemia at the time). He was also noted to have severe rhabdomyolysis with compartment syndrome and resultant ALTHEA. Now s/p??fasciotomies of L thigh, calf forearm and wrist (01/23) and??I+D SHAMAR ROBB (01/26). Previously completed treatment??for aspiration pneumonia versus MSSA CAP. He was also found to have asymptomatic COVID19 infection in admission testing. Scattered punctate infarcts on MR brain and CT COW/carotids from 01/24/22 readas normal.??Neurology believes??MRI findings are related to toxometabolic issues rather than a stroke.??Extubated PM of 01/26/22??and remains on room air. Interval History: tolerating wound vac changes at bedside Social History: Home setup: Pt lives with his father in a two level home with a couple [place]. Pt's bedroom and bathroom are on the first floor. The bathroom has a tub shower. Baseline Mobility/Prior level of function: Independent with mobility, ADLs and IADLs, drives, used to work for a [employer] company but is not currently working. Enjoys hunting and fishing. DME: none Precautions/Special Considerations: fall risk; soap and water contact; L UE and L LE NWB; wound vacto L UE and L hip Mobility and Positioning Recommendations: ?? Stand pivot transfer with 2 assist and FWW, minimize transfer distances ?? Encourage transfers to commode vs bedpan for toileting ?? Please encourage up to chair or bed chair position throughout the day as able. Subjective: I can't put much weight on it re: L UE on walker Objective: Patient seen for physical therapy and demonstrated the following: ?? Pain: no complaints of pain ? Vital Signs: Stable on RA ? Bed Mobility: Supine to Sit: Max A for L LE, trunk required supervision with HOB elevated Sit to Supine: Cues to use R LE to assist L LE into bed, HOB flat, pt managed trunk with supervision Scooting: Supervision for scooting toward the edge of bed ? Upright positioning: Steady seated balance without UE support ? Transfers: Sit to Stand: Min A x 2, FWW, elevated bed height Stand to Sit: Min A x 2 to control descent, cues to use UE's to lower Stand pivot transfer x 2, to and from bed and chair, FWW, Min-Mod A x 2, extra time required, small steps cues for weight bearing on UE's and locking L LE, no LOB ? Gait: 6 ft x 3 with FWW and Min A, sheet gait belt, chair follow, extra time required to place L LE appropriately it tends to scissor in, able to weight bear on L LE with slight buckling at times, relies on UE's, no LOB, seated rest breaks between walks ? Seated Balance: Static: good Dynamic: good ? Standing Balance: Static: Fair with FWW Dynamic / Gait: fair with FWW ? Therex: wrapped pt's L LE in an AFO tamie wrap to prevent foot drag while transferring and ambulating ?? Education: patient has been educated on Bed mobility, Positioning, Safety, Precautions/protocol, Role of therapy and Discharge planning and verbalizes understanding but will benefit from ongoing reinforcement Patient status, treatment, and mobility recommendations discussed with nursing. Pt left supine in bed with call starks within reach, all needs met and family present following visit. Assessment: Pt seen today for physical therapy treatment per POC. Able to perform several stand pivot transfers and ambulated short distance using B UE's to support weight bearing on the L LE. Fatigueseasily and requires rest breaks between activities but overall mobility improving to the point wherept should be using a commode instead of a bedpan. Pt will benefit from ongoing physical therapy to address the above impairments and facilitate return to PLOF. Discharge Recommendations: Based on the current findings, Anticipated Discharge Disposition (PT): acute rehabilitation facilitywhen medically ready for hospital discharge. Consult Recommendations: No other consults recommended at this time. Equipment needs: TBD, anticipate d/c to rehab Physical Therapy Goals: To be achieved by 02/19/22: ?? 1. Pt. to demonstrate knowledge of safety limitations and precautions and will appropriately requestassistance for functional activities and to mobilize. Met 2. Pt. to demonstrate understanding of appropriate exercises. Met 3. Pt. to perform bed mobility with supervision using bed features or adaptive equipment as needed. Met 4. Pt. to perform sit to stand and stand pivot transfers with min A using a front wheeled walker. ONGOING 5. Pt. to ambulate 25 feet with min A using a front wheeled walker. ONGOING 6. Pt will stand with UE support and min A x2 minutes while participating in functional tasks. ONGOING 7. Pt to propel wheelchair x 50 ft. using R UE/LE with supervision. ONGOING 8. Pt will tolerate progression towards upright with stable vital signs. ONGOING Plan: Therapy Frequency (PT): 2-4 times/wk Time IN / OUT: 14:15-14:55 Total Minutes, Physical Therapy: 40 TE-F x 3 JASWINDER Juan CHUNG, [employer] 03/08/2022 Pager: [phone] Physical Therapy Inpatient Rehabilitation Department Lizzy Miranda, RD - 03/08/2022 2:44 PM EDT Nutrition Progress Note Alix Crooks or SEE is a 31 y.o. male ??with history of polysubstance abuse currently admitted for fentanyl OD with LUE and LLE compartment syndrome s/p L forearm, L thigh/buttock and L lower leg fasciotomies, rhabdomyolysis, ARF and hyperkalemic VT arrest (on CVVH) with recurrent L thigh fasciotomy wound bleeding and hemorrhagic shock now 3 days s/p IR embolization of L circumflex iliac artery, Left internal iliac gluteal arterial branches, and left superior gluteal artery via R CUT [employer] access. Reason for intervention: Follow up Nutrition Recommendations: Regular diet Limit NPO to periods to only when necessary to avoid missing nutrition windows Offer snacks, meals at off times when able if meal periods missed Encourage ton continue double portions protein and milk with meals Active Orders Diet Regular diet Frequency: Effective Now Number of Occurrences: Until Specified Nourishments Adult diet Oral Supplements Other; Ensure Compact Frequency: Effective Now Number of Occurrences: Until Specified Lab Results Component Value Date NA 141 03/04/2022 K 3.7 03/04/2022 CL 101 03/04/2022 CO2 25 03/04/2022 BUN 23 (H) 03/04/2022 CREATININE 1.23 03/04/2022 ESTGFR 81 03/04/2022 MAGNESIUM 0.80 03/03/2022 CALCIUM 8.7 03/04/2022 PHOS 5.1 (H) 03/03/2022 AST 21 02/05/2022 ALT <5 02/05/2022 ALKPHOS 74 02/05/2022 BILITOT 0.4 02/05/2022 BILIDIR 0.3 02/05/2022 TRIG 359 01/26/2022 CRP <3.0 04/26/2021 OWYAHIFQ19 535 02/03/2022 25OHVITD 12 (L) 02/19/2022 SFOLATE 3.9 (L) 02/03/2022 IRON 21 (L) 03/01/2022 No results found for: POCGLU Skin Status: Shift Pressure Injury Prevention Occiput: No Injury Thoracic Spine: No Injury Sacral: No Injury Ischial - left: No Injury Ischial - right: No Injury Heel - left: No Injury Heel - right: No Injury Elbow - left: No Injury Elbow - right: No Injury Device Sites: O2 sat monitor, IV sites Other Sites: Wound vac x 2; PICC line Relevant medications: Last Bowel Movement: 03/07/22 Admit Weight: 101.8 kg Estimated body mass index is 21.92 kg/m?? as calculated from the following: Height as of this encounter: 188 cm (6' 2). Weight as of this encounter: 77.4 kg (170 lb 11.2 oz). [place] Body Weight: 80.9kg- [place] Usual Body Weight: Pt reports 220-225 lb ( 100-102 kg) 3.5% wt loss since admission (2 weeks)- clinically significant 2.7% x 1 week - clinically significant Wt Readings from Last 10 Encounters: 03/05/22 77.4 kg (170 lb 11.2 oz) 04/28/21 98.1 kg (216 lb 4.3 oz) 02/22/19 108.9 kg (240 lb) 05/03/18 113.4 kg (250 lb) 04/27/13 90.7 kg (200 lb) Patient Vitals for the past 168 hrs: Weight 03/05/22 0630 77.4 kg (170 lb 11.2 oz) 03/04/22 0600 77.3 kg (170 lb 6.7 oz) 03/03/22 0923 77.3 kg (170 lb 6.4 oz) Assessment: Based on IBW 80.9kg Estimated needs: Calories: 0219-5966 (25-30kcal/kg) Protein: 120 grams (1.5 g/kg UBW) Nutrition Focused Physical Exam (NFPE): Performed on 03/01/22. Subcutaneous fat loss at Orbital region: Moderate Upper arm region (triceps/biceps): Mild Thoracic and lumbar region (ribs, lower back and maxillary line): Not assessed Lean muscle loss to Hoahaoism region (temporalis muscle): Moderate Clavicle bone region (pectoralis major): None present Dorsal hand (interosseous muscle): None present Shoulder (deltoid): Mild Scapular bone region (latissimus dorsi, trapezius muscles): Not assessed Thigh region (quadriceps muscle): Mild Posterior calf region (gastrocnemius muscle): Not assessed- in wraps Fluid accumulation: Not assessed- Nutrition intake and intake history/Interview: Valeriy is resting in bed, he did not eat his lunch today, but reports a good appetite and intakes and just did not care for his lunch today, declines offer and encouragement for any other items. His orders in past few days are adequate to meet his estimated needs. Encourage continued ordering this way, again endorsed importance of good nutrition. Protein-calorie Malnutrition: < or equal to 50% of estimated energy requirement for > or equalto 5 days and >2% weight loss in 1 week is consistent with severe protein-calorie malnutrition inthe setting of acute illness or injury (Nelia, JPEN J Parenteral Enteral Nutr. 2011; 36(3): 273-83) Nutrition to continue to follow up while inpatient THANKS Lizzy Miranda RD Pager #:[phone] Nancy Chahal MD - 03/08/2022 2:35 PM EDT Surgery Service Wound Vac Change Note ID: Alix Holland ( ) Wound Vac Change #1 Wound Location: LUE Wound Dimensions: 7cm W x 20cm L x 2mm D Procedure: 0.4 mg IV Dilaudid was given prior to the procedure for pain and anxiolysis. An additional 5cc lidocaine was administered for pain. The wound vac change was performed at the bedside. Healthy granulation tissue was found in wound. 1 wound vac sponge was removed and 1 new vac sponge was placed with good approximation and good seal. The patient tolerated the procedure well w/o need for additional pain medication. Wound Vac Change #2 Wound Location: LLE Wound Dimensions: 10.5cm W x 33cm L x 1cm D. 3cm of tunneling at 2:00 o' clock. Procedure: Procedure completed in the same setting of the LUE vac change in which 0.4 mg IV Dilaudidwas delivered. Similarly, the LLE wound vac change was performed at [facility]. Healthy granulation tissue was found in the wound. 3 wound vac sponges were removed. 3 new vac sponges were placed with good approximation and good seal. For the tunneled portion, the sponge was tagged with a prolene suture atthe proximal and posterior end. The patient tolerated the procedure well w/o need for additional pain medication. Norbert Vega 03/08/2022 A medical student assisted me in the documentation of this note. I personally saw and evaluated the patient, reviewed all applicable documented studies, and diagnostic images. The assessment and plan were formulated with the care team at the time of the visit and in my presence. I have made edits to the above note and agree with the details above. Nancy Chahal MD PGY-1, General Surgery 03/08/22 Nancy Chahal MD - 03/08/2022 2:20 PM EDT Acute Care Surgery Daily Progress Note Admission Date: 01/23/2022 ID: Alix Holland is a 31 y.o. male with HTN, angioedema requiring intubation 04/21, GERD, gastritis, esophagitis, urachal cyst, and polysubstance use (EtOH, cocaine, heroin) who was admitted to the MICU 01/23/2022 s/p VT arrest in the setting of being found down following fentanyl overdose and developing L forearm and L thigh compartment syndrome (s/p L forearm, L buttock, and L thigh fasciotomies) w/ subsequent rhabdomyolysis, renal failure, and hyperkalemia which required CVVH. He was transitioned to iHD and transferred to floor status 02/02, however he had persistent daily transfusion requirement from ongoing wound vac bleeding and returned to the OR x2 (02/04 and 02/05) for irrigation and debridement of fasciotomy wounds, however no focal source of bleeding was identified. He was transferred to the SICU 02/05 after L thigh wound vac filled with alexsandra blood and hgb dropped to 4.6 despite 6U pRBC. He went to IR for embolization of SGA pseudoaneurysm and to the OR for hematoma washout on 02/06. He returned to the OR for washout and debridement again on 02/08 and 02/09. He was subsequently lateralized to the ACS service and transferred to floor status on 02/10. His hospital course has also been notable for asymptomatic COVID-19 infection, C. 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 Procedures: 01/23: L thigh fasciotomy, L lower leg fasciotomy, L buttock fasciotomy, L forearm fasciotomy 01/26: Debridements and wound vac change 01/29: Debridement of fasciotomies, closure of L lower leg fasciotomy, closure of dorsal forearm fasciotomy, partial closure L thigh fasciotomy 01/31: Debridement and wound vac change 02/02: Debridement and wound vac change 02/04: Debridement and wound vac change 02/05: Debridement and wound vac change, 02/06: IR embolization of SGA pseudoaneurysm 02/06: LLE hematoma evacuation and washout 02/08: washout and debridement LLE, vac change LUE 02/09: washout and debridement LLE with vac placement 02/11: washout and vac change, LLE and LUE 02/13: washout and vac change, LLE and LUE 02/15: washout and vac change, LLE and LUE, possible drainage of L gluteal abscess 02/19: washout and vac change, LLE and LUE 02/22: washout and vac change, LLE and LUE 02/24: washout and vac change, LLE and LUE 02/26: washout and vac change, LLE and LUE 03/01: washout and vac change, LLE and LUE 03/03: washout and vac change, LLE and LUE 03/05: vac change at bedside, LLE and LUE w/ cultures 03/07: vac change at bedside, LLE and LUE 03/08: vac change at bedside, LLE and LUE Subjective Interval Events: - Lilypad changed overnight - continues to produce urine Objective Vitals: Last Value Range last 24 hrs Temperature Temp: 36.7 ??C (98.1 ??F) Temp: [36.7 ??C (98.1 ??F)-37.2 ??C (98.9 ??F)] Heart Rate Heart Rate: (!) 118 Heart Rate: [118] Blood Pressure BP: (!) 153/103 BP: (134-164)/(93-113) Respiratory Rate Resp: 18 Resp: [16-18] SpO2 SpO2: 98 % SpO2: [98 %-99 %] O2 Device O2 Device: None (Room air) Intake/Output: 03/07 0701 - 03/08 0700 In: 1405 [P.O.:1400; I.V.:5] Out: 5300 [Urine:4820] Physical Exam: GEN: resting comfortably in bed, NAD HEENT: normocephalic, atraumatic CHEST: In no respiratory distress on RA CV: Tachycardic 100s, well perfused ABD: soft, nontender, nondistended EXTR: LLE lateral thigh fasciotomy wound with wound vac in place, sutures at superior aspect, LLE fasciotomy incision c/d/i, LUE with wound vac in place. SKIN: WWP NEURO: AOx3, follows commands Labs: No results for input(s): WBC, HGB, HCT, PLATELET, PT, INR, PTT in the last 72 hours. No results for input(s): NA, K, CL, CO2, BUN, CREATININE, GLUCOSE, CALCIUM, MAGNESIUM, PHOS in the last 72 hours. C Diff Screen Date Value Ref Range Status 02/01/2022 Positive (A) Negative Final Comment: PCR Pos C. diff?? Positive (GDH positive, toxin antigen negative, toxin PCR positive) DNA from a toxigenic strain of C. difficile was detected, although the free toxin itself was not detected.?? These results cannot distinguish between colonization and infection. They must be interpreted within the patient???s overall clinical context. Consider other causes for diarrhea or the presence of a non-toxigenic strain. Patient needs to remain on Soap & Water Contact Precautions until discharge or approval by Infection Prevention. Abscess/Wound Aspirate Culture Date Value Ref Range Status 02/19/2022 (A) Final Rare Serratia marcescens Rare Pseudomonas aeruginosa 02/17/2022 (A) Final One colony of Serratia marcescens : Susceptibilities previously reported One colony of Pseudomonas aeruginosa : Susceptibilities previously reported 02/17/2022 (A) Final One colony of Serratia marcescens : Susceptibilities previously reported Anaerobic Culture Date Value Ref Range Status 02/19/2022 No anaerobic organisms isolated Final 02/17/2022 No anaerobic organisms isolated Final 02/17/2022 No anaerobic organisms isolated Final Tissue Culture Date Value Ref Range Status 02/09/2022 (A) Final Few Pseudomonas aeruginosa Few Serratia marcescens Susceptibilities previously reported Blood Culture Date Value Ref Range Status 02/06/2022 No growth at 5 days. Final 02/05/2022 No growth at 5 days. Final 02/01/2022 No growth at 5 days. Final Studies: No recent imaging Assessment and Plan Alix Holland is a 31 y.o. male with HTN, angioedema requiring intubation 04/21, GERD, gastritis, esophagitis, urachal cyst, and polysubstance use (EtOH, cocaine, heroin) who was admitted 01/23/2022 forcompartment syndrome and rhabdomyalysis after being found down. He is now s/p multiple fasciotomies and debridements of LLE and L forearm. Mr. Holland has had a prolonged, complicated hospital course which has been significant for renal replacement therapy secondary to rhabdomyolysis, ICU admissions, multiple debridements, and persistent transfusion requirement. He was transferred to the floor 02/10 and appears to be slowly progressing towards recovery. His wound cultures grew Pseudomonas and Serratia for which he has been covered with by Zosyn. ID consulted 02/11 and Zosyn discontinued and transitioned to cefepime. He also has C. difficile for which he is being treated with p.o. vancomycin which will continue for 10 days (until 03/01/22) following disco ntinuation of cefepime. His leukocytosis has improved. ID was again consulted on 02/22 for cefepime-resistant pseudomonas. Despite the resistence, Mr. Holland has been afebrile and without a leukocytosis so the decision was made to stop cefepime and flagyl. His last dialysis was 02/18/22, central access remains in place due to lack of peripheral access options. His Cr continues to improve, and his urine output remains high. Given his improved renal function, Nephrology recommended stopping weekly EPO, resuming a normal diet, starting vitamin D supplementation and a normal multivitamin. Patient continues to do well and has tolerated bedside wound vac changes without difficulty with most recent bedside dressing change occurring today 03/08. Cultures from 03/05 demonstrated GPCs and GNRs and speciated MRSA. Timing of skin grafting still being determined, potentially Tuesday. Due to low iron stores, patient was started on 300mg IV iron for 3 days per Nephrology recommendations now that he is off vancomycin. Following 3 days of IV iron, he will switch to oral iron supplements. Plan: Neuro: [place] PO Tylenol, PO Oxycodone 10-15 PRN Q4, Zofran PRN #Polysubstance abuse, found down following fentanyl ingestion, Toxic metabolic encephalopathy, bilateral globus pallidum infarcts - Thiamine, folate supplementation - Q shift neurovascular checks - Neurology consulted 01/23, re-consulted 02/16, no changes to plan --- Expected BG evolution on MRI. No further w/u --- Re-consult neuro closer to d/c for EMG/NCS testing for peripheral neuropathy Psych: BIT (03/02): RC to follow. Expressing desire to leave room but unable to due to infectious disease restrictions. CV: Amlodipine 10mg daily - Persistent tachycardia, likely d/t increased metabolic demand from wounds and infections Resp: Encourage IS, OOB GI: Marinol 10mg BID, Lactulose BID PRN FEN: F: PO ad minoo E: BMP wnl for several days, DC labs N: Regular diet, Vitamin C, Marinol BID - Nutrition (03/01): recommend limiting NPO time for nutritional concerns in addition to increased protein intake and milk with meals. Renal/: - 03/01: Ferritin 693, Total Fe 21, TIBC 185. Nephrology signed off. Recommended (03/02) IV iron to start on 03/08 (300mg daily for 3 days) followed by oral iron supplements w/ bowel reg. - Per nephrology, begin IV iron after Vancomycin course completed 03/01/22 (02/25), Stop weekly EPO (note 02/27), start vitamin D supplementation, start regular multivitamin. Vit D level in mid-May. - Will need CKD clinic follow-up - Daily weights 77.4 Heme: JAVON. Transfuse for Hgb < 7. ID: s/p antibiotics. C diff precautions for 4 weeks until Mar 29. - ID consulted 02/11, 02/17, 02/22 - S/p PO Vanc BID for c diff (02/01- 03/01/22). - S/p Cefepime (02/11 - 02/22) - can d/c due to antibiotic resistance - S/p IV flagyl q8h for c diff (02/16 - 02/22) - S/p Unasyn (01/23-01/26 and 01/29-02/01), Cefazolin (01/26-01/29 and 02/01-02/07), Zosyn (02/08-02/11) - 02/15 L Thigh wound culture: Pseudomonas, Serratia, Gram positive cocci - 02/08 and 02/09 wound cx: Pseudomonas, serratia Endo: JAVON MSK: Dressing change at bedside 03/08. Plan for grafting Tuesday (03/10). - s/p multiple fasciotomies, OR debridements, and wound vac changes - Plastics consulted 02/04, okay for primary team to close wounds - Ortho consulted 02/17, signed off, weight bearing status to be determined by primary team - Working with PT/OT 2-4x/week Prophy: Resp: OOB, IS; DVT: SQH TID, IPCs, OOB Lines/Drains/Tubes/Airways: 5F PICC. Dispo: Floor status; PT/OT consulted. OT 03/02 rec for acute rehab Code Status: Attempt Cardiopulmonary Resuscitation - Inpatient Nancy Chahal MD PGY-1 03/08/22 Acute Care Surgery [id number] Tanesha Patel RN - 03/08/2022 5:29 AM EDT OUTCOME EVALUATION NOTE: ?? OUTCOME SUMMARY: Pt AOx4. PO Oxycodone and Tylenol for pain. BP and HR had been elevated, asymptomatic.??Dressings had been CDI. At the start of the shift LUE Wound vac had been going off due to leakage, tegaderm reinforced. Then around 0300H LLE Wound vac had been going off due to blockage, changed the mo pad. Canister output measured per oncall provider request. Had 180mL output on LUE and 300 mL on LLE. Both have serosanguinous drainage. Double lumen PICC capped, clave changed. Slept on and off throughout the night. ? PLAN MOVING FORWARD: Wound vac change at bedside Possible skin grafting of left arm on 03/10 Pain management ? INDIVIDUALIZED FALL PREVENTION INTERVENTIONS: ?? Patient-specific fall risk factors per assessment: [current deficits]:?Hospital??environment,IV lines, generalized weakness ?? Assistance [level of assistance required for transfers and ambulation]:?? 2A/Lift ?? Supervision [direct monitoring required during toileting and ADLs]:?Hands??on ?? Surveillance [continuous indirect monitoring]: Purposeful??rounding ?? CARE PLAN GOAL OUTCOME EVALUATION:? Ongoing Jayme Armstrong MD - 03/07/2022 11:30 AM EDT Acute Care Surgery Daily Progress Note Admission Date: 01/23/2022 ID: Alix Holland is a 31 y.o. male with HTN, angioedema requiring intubation 04/21, GERD, gastritis, esophagitis, urachal cyst, and polysubstance use (EtOH, cocaine, heroin) who was admitted to the MICU 01/23/2022 s/p VT arrest in the setting of being found down following fentanyl overdose and developing L forearm and L thigh compartment syndrome (s/p L forearm, L buttock, and L thigh fasciotomies) w/ subsequent rhabdomyolysis, renal failure, and hyperkalemia which required CVVH. He was transitioned to iHD and transferred to floor status 02/02, however he had persistent daily transfusion requirement from ongoing wound vac bleeding and returned to the OR x2 (02/04 and 02/05) for irrigation and debridement of fasciotomy wounds, however no focal source of bleeding was identified. He was transferred to the SICU 02/05 after L thigh wound vac filled with alexsandra blood and hgb dropped to 4.6 despite 6U pRBC. He went to IR for embolization of SGA pseudoaneurysm and to the OR for hematoma washout on 02/06. He returned to the OR for washout and debridement again on 02/08 and 02/09. He was subsequently lateralized to the ACS service and transferred to floor status on 02/10. His hospital course has also been notable for asymptomatic COVID-19 infection, C. 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 Procedures: 01/23: L thigh fasciotomy, L lower leg fasciotomy, L buttock fasciotomy, L forearm fasciotomy 01/26: Debridements and wound vac change 01/29: Debridement of fasciotomies, closure of L lower leg fasciotomy, closure of dorsal forearm fasciotomy, partial closure L thigh fasciotomy 01/31: Debridement and wound vac change 02/02: Debridement and wound vac change 02/04: Debridement and wound vac change 02/05: Debridement and wound vac change, 02/06: IR embolization of SGA pseudoaneurysm 02/06: LLE hematoma evacuation and washout 02/08: washout and debridement LLE, vac change LUE 02/09: washout and debridement LLE with vac placement 02/11: washout and vac change, LLE and LUE 02/13: washout and vac change, LLE and LUE 02/15: washout and vac change, LLE and LUE, possible drainage of L gluteal abscess 02/19: washout and vac change, LLE and LUE 02/22: washout and vac change, LLE and LUE 02/24: washout and vac change, LLE and LUE 02/26: washout and vac change, LLE and LUE 03/01: washout and vac change, LLE and LUE 03/03: washout and vac change, LLE and LUE Subjective Interval Events: - Wound vacs intermittently alarming for blockages. LUE vac changed by nurse. LLE changed vac changed overnight. Patient tolerated well. Continue to monitor for blockages. - UOP 4.5 L yesterday Objective Vitals: Last Value Range last 24 hrs Temperature Temp: 37.1 ??C (98.8 ??F) Temp: [36.7 ??C (98.1 ??F)-37.2 ??C (99 ??F)] Heart Rate Heart Rate: (!) 105 Heart Rate: -- Blood Pressure BP: (!) 146/101 BP: (138-148)/(86-103) Respiratory Rate Resp: 18 Resp: [18-20] SpO2 SpO2: 98 % SpO2: [98 %-99 %] O2 Device O2 Device: None (Room air) Intake/Output: 03/06 0701 - 03/07 0700 In: 2160 [P.O.:2160] Out: 5325 [Urine:4975] Physical Exam: GEN: resting comfortably in bed, NAD HEENT: normocephalic, atraumatic CHEST: In no respiratory distress on RA CV: Tachycardic 100s, well perfused ABD: soft, nontender, nondistended EXTR: LLE lateral thigh fasciotomy wound with wound vac in place, LLE fasciotomy incision c/d/i, LUEwith wound vac in place. SKIN: WWP NEURO: AOx3, follows commands Labs: No results for input(s): WBC, HGB, HCT, PLATELET, PT, INR, PTT in the last 72 hours. No results for input(s): NA, K, CL, CO2, BUN, CREATININE, GLUCOSE, CALCIUM, MAGNESIUM, PHOS in the last 72 hours. C Diff Screen Date Value Ref Range Status 02/01/2022 Positive (A) Negative Final Comment: PCR Pos C. diff?? Positive (GDH positive, toxin antigen negative, toxin PCR positive) DNA from a toxigenic strain of C. difficile was detected, although the free toxin itself was not detected.?? These results cannot distinguish between colonization and infection. They must be interpreted within the patient???s overall clinical context. Consider other causes for diarrhea or the presence of a non-toxigenic strain. Patient needs to remain on Soap & Water Contact Precautions until discharge or approval by Infection Prevention. Abscess/Wound Aspirate Culture Date Value Ref Range Status 02/19/2022 (A) Final Rare Serratia marcescens Rare Pseudomonas aeruginosa 02/17/2022 (A) Final One colony of Serratia marcescens : Susceptibilities previously reported One colony of Pseudomonas aeruginosa : Susceptibilities previously reported 02/17/2022 (A) Final One colony of Serratia marcescens : Susceptibilities previously reported Anaerobic Culture Date Value Ref Range Status 02/19/2022 No anaerobic organisms isolated Final 02/17/2022 No anaerobic organisms isolated Final 02/17/2022 No anaerobic organisms isolated Final Tissue Culture Date Value Ref Range Status 02/09/2022 (A) Final Few Pseudomonas aeruginosa Few Serratia marcescens Susceptibilities previously reported Blood Culture Date Value Ref Range Status 02/06/2022 No growth at 5 days. Final 02/05/2022 No growth at 5 days. Final 02/01/2022 No growth at 5 days. Final Studies: No recent imaging Assessment and Plan Alix Holland is a 31 y.o. male with HTN, angioedema requiring intubation 04/21, GERD, gastritis, esophagitis, urachal cyst, and polysubstance use (EtOH, cocaine, heroin) who was admitted 01/23/2022 forcompartment syndrome and rhabdomyalysis after being found down. He is now s/p multiple fasciotomies and debridements of LLE and L forearm. Mr. Holland has had a prolonged, complicated hospital course which has been significant for renal replacement therapy secondary to rhabdomyolysis, ICU admissions, multiple debridements, and persistent transfusion requirement. He was transferred to the floor 02/10 and appears to be slowly progressing towards recovery. His wound cultures grew Pseudomonas and Serratia for which he has been covered with by Zosyn. ID consulted 02/11 and Zosyn discontinued and transitioned to cefepime. He also has C. difficile for which he is being treated with p.o. vancomycin which will continue for 10 days (until 03/01/22) following disco ntinuation of cefepime. His leukocytosis has improved. ID was again consulted on 02/22 for cefepime-resistant pseudomonas. Despite the resistence, Mr. Holland has been afebrile and without a leukocytosis so the decision was made to stop cefepime and flagyl. His last dialysis was 02/18/22, central access remains in place due to lack of peripheral access options. His Cr continues to improve, and his urine output remains high. Given his improved renal function, Nephrology recommended stopping weekly EPO, resuming a normal diet, starting vitamin D supplementation and a normal multivitamin. Patient continues to do well and has tolerated bedside wound vac changes without difficulty. Wound culture with GPC and GNR, likely contaminants as not sterile dressing change. Will continue to monitorculture growth for drug resistant organisms. Wound vac continues to clog requiring mo pad changes.Remains on diet with plan for grafting on Tuesday. Plan: Neuro: AMERICA PO Tylenol, PO Oxycodone 10-15 PRN Q4, Zofran PRN #Polysubstance abuse, found down following fentanyl ingestion, Toxic metabolic encephalopathy, bilateral globus pallidum infarcts - Thiamine, folate supplementation - Q shift neurovascular checks - Neurology consulted 01/23, re-consulted 02/16, no changes to plan --- Expected BG evolution on MRI. No further w/u --- Re-consult neuro closer to d/c for EMG/NCS testing for peripheral neuropathy Psych: BIT (03/02): RC to follow. Expressing desire to leave room. CV: Amlodipine 10mg daily - Persistent tachycardia, likely d/t increased metabolic demand from wounds and infections Resp: Encourage IS, OOB GI: Marinol 10mg BID, Lactulose BID PRN FEN: F: PO ad minoo E: BMP wnl for several days, N: Regular diet, Vitamin C, Marinol BID - Nutrition (03/01): recommend limiting NPO time for nutritional concerns in addition to increased protein intake and milk with meals. Renal/: - 03/01: Ferritin 693, Total Fe 21, TIBC 185. Nephrology signed off. Recommended (03/02) IV iron to start on 03/08 (300mg daily for 3 days) followed by oral iron supplements w/ bowel reg. - Per nephrology, begin IV iron after Vancomycin course completed 03/01/22 (02/25), Stop weekly EPO (note 02/27), start vitamin D supplementation, start regular multivitamin. Vit D level in mid-May. - Will need CKD clinic follow-up - Daily weights 77.4 Heme: JAVON. Transfuse for Hgb < 7. ID: s/p antibiotics. C diff precautions for 4 weeks until Mar 29. - ID consulted 02/11, 02/17, 02/22 - S/p PO Vanc BID for c diff (02/01- 03/01/22). - S/p Cefepime (02/11 - 02/22) - can d/c due to antibiotic resistance - S/p IV flagyl q8h for c diff (02/16 - 02/22) - S/p Unasyn (01/23-01/26 and 01/29-02/01), Cefazolin (01/26-01/29 and 02/01-02/07), Zosyn (02/08-02/11) - 02/15 L Thigh wound culture: Pseudomonas, Serratia, Gram positive cocci - 02/08 and 02/09 wound cx: Pseudomonas, serratia Endo: JAVON MSK: Dressing change at bedside 03/06. Plan for grafting Tuesday (03/10). - s/p multiple fasciotomies, OR debridements, and wound vac changes - Plastics consulted 02/04, okay for primary team to close wounds - Ortho consulted 02/17, signed off, weight bearing status to be determined by primary team - Working with PT/OT 2-4x/week Prophy: Resp: OOB, IS; DVT: SQH TID, IPCs, OOB Lines/Drains/Tubes/Airways: 5F PICC. Dispo: Floor status; PT/OT consulted. OT 03/02 rec for acute rehab Code Status: Attempt Cardiopulmonary Resuscitation - Inpatient Alonzo Oakley, MS4 03/07/22 Acute Care Surgery [id number] A medical student assisted me in the documentation of this note. I personally saw and evaluated the patient, reviewed all applicable documented studies, and diagnostic images. The assessment and plan were formulated with the care team at the time of the visit and in my presence. I have made edits to the above note and agree with the details above. Sixto Medina MD PGY-1, General Surgery 03/07/22 I saw and evaluated the patient with Dr. Medina (resident). I have independently reviewed the relevant laboratory and radiographic studies. I have edited the above note and agree with the details as written. My physical examination confirms the resident's findings. The assessment and plan were formulated in discussion with me at the time of the visit and I agree with them as documented. Jayme Armstrong MD Tung Jenkins MD - 03/07/2022 1:30 AM EDT WOUND VAC NOTE Alix Holland 31 y.o./male [id number] DATE: 03/07/22 Admit Date: 01/23/2022 12:29 AM Hospital Day: 43 Diagnosis: left upper and lower extremity wounds; Wound vac changed over left thigh wound. Wound Description Size: 36 cm length x 10 cm width x 1 cm deep Location: left thigh Discharge: yes- sanguinous Granulation Tissue: {yes Photograph (if any)- none Wound VAC dressing details: Number of sponge used: 3 Type of sponge used: black Suction Pressure: 125 mHg Previous output amount: 150mls Previous output color/consistency: sanguinous Irrigation used: no Type of Irrigation fluid used (if any): n/a Irrigation settings: n/a Patient tolerated dressing change; it was dated. Tung Jenkins MD 03/07/2022 6:02 AM Jayme Armstrong MD - 03/06/2022 3:22 PM EDT Acute Care Surgery Daily Progress Note Admission Date: 01/23/2022 ID: Alix Holland is a 31 y.o. male with HTN, angioedema requiring intubation 04/21, GERD, gastritis, esophagitis, urachal cyst, and polysubstance use (EtOH, cocaine, heroin) who was admitted to the MICU 01/23/2022 s/p VT arrest in the setting of being found down following fentanyl overdose and developing L forearm and L thigh compartment syndrome (s/p L forearm, L buttock, and L thigh fasciotomies) w/ subsequent rhabdomyolysis, renal failure, and hyperkalemia which required CVVH. He was transitioned to iHD and transferred to floor status 02/02, however he had persistent daily transfusion requirement from ongoing wound vac bleeding and returned to the OR x2 (02/04 and 02/05) for irrigation and debridement of fasciotomy wounds, however no focal source of bleeding was identified. He was transferred to the SICU 02/05 after L thigh wound vac filled with alexsandra blood and hgb dropped to 4.6 despite 6U pRBC. He went to IR for embolization of SGA pseudoaneurysm and to the OR for hematoma washout on 02/06. He returned to the OR for washout and debridement again on 02/08 and 02/09. He was subsequently lateralized to the ACS service and transferred to floor status on 02/10. His hospital course has also been notable for asymptomatic COVID-19 infection, C. 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 Procedures: 01/23: L thigh fasciotomy, L lower leg fasciotomy, L buttock fasciotomy, L forearm fasciotomy 01/26: Debridements and wound vac change 01/29: Debridement of fasciotomies, closure of L lower leg fasciotomy, closure of dorsal forearm fasciotomy, partial closure L thigh fasciotomy 01/31: Debridement and wound vac change 02/02: Debridement and wound vac change 02/04: Debridement and wound vac change 02/05: Debridement and wound vac change, 02/06: IR embolization of SGA pseudoaneurysm 02/06: LLE hematoma evacuation and washout 02/08: washout and debridement LLE, vac change LUE 02/09: washout and debridement LLE with vac placement 02/11: washout and vac change, LLE and LUE 02/13: washout and vac change, LLE and LUE 02/15: washout and vac change, LLE and LUE, possible drainage of L gluteal abscess 02/19: washout and vac change, LLE and LUE 02/22: washout and vac change, LLE and LUE 02/24: washout and vac change, LLE and LUE 02/26: washout and vac change, LLE and LUE 03/01: washout and vac change, LLE and LUE 03/03: washout and vac change, LLE and LUE Subjective Interval Events: - Bedside wound vac change for LUE and LLE, tolerated well with lidocaine and 0.4 dilaudid - Worked with PT - UOP 3.6 L yesterday - Weight 77.4 kg (77.3) Objective Vitals: Last Value Range last 24 hrs Temperature Temp: 37.2 ??C (99 ??F) Temp: [36.7 ??C (98.1 ??F)-37.2 ??C (99 ??F)] Heart Rate Heart Rate: (!) 105 Heart Rate: -- Blood Pressure BP: 138/86 BP: (138-165)/(86-105) Respiratory Rate Resp: 20 Resp: [18-20] SpO2 SpO2: 98 % SpO2: [96 %-100 %] O2 Device O2 Device: None (Room air) Intake/Output: 03/05 0701 - 03/06 0700 In: 2200 [P.O.:2200] Out: 4540 [Urine:4540] Physical Exam: GEN: resting comfortably in bed, pleasant, conversant, NAD HEENT: normocephalic, atraumatic CHEST: In no respiratory distress on RA CV: Tachycardic 110s, well perfused ABD: soft, nontender, nondistended EXTR: LLE lateral thigh fasciotomy wound with wound vac in place, LLE fasciotomy incision c/d/i, LUEwith wound vac in place. SKIN: WWP NEURO: AOx3, follows commands Labs: No results for input(s): WBC, HGB, HCT, PLATELET, PT, INR, PTT in the last 72 hours. Recent Labs 03/04/22 0054 NA 141 K 3.7 CL 101 CO2 25 BUN 23* CREATININE 1.23 GLUCOSE 97 CALCIUM 8.7 C Diff Screen Date Value Ref Range Status 02/01/2022 Positive (A) Negative Final Comment: PCR Pos C. diff?? Positive (GDH positive, toxin antigen negative, toxin PCR positive) DNA from a toxigenic strain of C. difficile was detected, although the free toxin itself was not detected.?? These results cannot distinguish between colonization and infection. They must be interpreted within the patient???s overall clinical context. Consider other causes for diarrhea or the presence of a non-toxigenic strain. Patient needs to remain on Soap & Water Contact Precautions until discharge or approval by Infection Prevention. Abscess/Wound Aspirate Culture Date Value Ref Range Status 02/19/2022 (A) Final Rare Serratia marcescens Rare Pseudomonas aeruginosa 02/17/2022 (A) Final One colony of Serratia marcescens : Susceptibilities previously reported One colony of Pseudomonas aeruginosa : Susceptibilities previously reported 02/17/2022 (A) Final One colony of Serratia marcescens : Susceptibilities previously reported Anaerobic Culture Date Value Ref Range Status 02/19/2022 No anaerobic organisms isolated Final 02/17/2022 No anaerobic organisms isolated Final 02/17/2022 No anaerobic organisms isolated Final Tissue Culture Date Value Ref Range Status 02/09/2022 (A) Final Few Pseudomonas aeruginosa Few Serratia marcescens Susceptibilities previously reported Blood Culture Date Value Ref Range Status 02/06/2022 No growth at 5 days. Final 02/05/2022 No growth at 5 days. Final 02/01/2022 No growth at 5 days. Final Studies: No recent imaging Assessment and Plan Alix Holland is a 31 y.o. male with HTN, angioedema requiring intubation 04/21, GERD, gastritis, esophagitis, urachal cyst, and polysubstance use (EtOH, cocaine, heroin) who was admitted 01/23/2022 forcompartment syndrome and rhabdomyalysis after being found down. He is now s/p multiple fasciotomies and debridements of LLE and L forearm. Mr. Holland has had a prolonged, complicated hospital course which has been significant for renal replacement therapy secondary to rhabdomyolysis, ICU admissions, multiple debridements, and persistent transfusion requirement. He was transferred to the floor 02/10 and appears to be slowly progressing towards recovery. His wound cultures grew Pseudomonas and Serratia for which he has been covered with by Zosyn. ID consulted 02/11 and Zosyn discontinued and transitioned to cefepime. He also has C. difficile for which he is being treated with p.o. vancomycin which will continue for 10 days (until 03/01/22) following disco ntinuation of cefepime. His leukocytosis has improved. ID was again consulted on 02/22 for cefepime-resistant pseudomonas. Despite the resistence, Mr. Holland has been afebrile and without a leukocytosis so the decision was made to stop cefepime and flagyl. His last dialysis was 02/18/22, central access remains in place due to lack of peripheral access options. His Cr continues to improve, and his urine output remains high. Given his improved renal function, Nephrology recommended stopping weekly EPO, resuming a normal diet, starting vitamin D supplementation and a normal multivitamin. Alix is recovering well today, tolerated bedside wound vac. Would culture with GPC and GNR, likely contaminants as not sterile dressing change. Wound vac continues to clog requiring mo pad changes. Will continue to monitor culture growth. Remains on diet with possible grafting on Tuesday. Plan: Neuro: AMERICA PO Tylenol, PO Oxycodone 10-15 PRN Q4 #Polysubstance abuse, found down following fentanyl ingestion, Toxic metabolic encephalopathy, bilateral globus pallidum infarcts - Thiamine, folate supplementation - Q shift neurovascular checks - Neurology consulted 01/23, re-consulted 02/16, no changes to plan --- Expected BG evolution on MRI. No further w/u --- Re-consult neuro closer to d/c for EMG/NCS testing for peripheral neuropathy Psych: BIT (03/02): RC to follow. Expressing desire to leave room. CV: Amlodipine 10mg daily - Persistent tachycardia, likely d/t increased metabolic demand from wounds and infections Resp: Encourage IS, OOB GI: Marinol 10mg BID, Lactulose BID PRN FEN: F: PO ad minoo E: N: Regular diet - Nutrition (03/01): recommend limiting NPO time for nutritional concerns in addition to increased protein intake and milk with meals. Renal/: - 03/01: Ferritin 693, Total Fe 21, TIBC 185. Nephrology signed off. Recommended (03/02) IV iron to start on 03/08 (300mg daily for 3 days) followed by oral iron supplements w/ bowel reg. - Per nephrology, begin IV iron after Vancomycin course completed 03/01/22 (02/25), Stop weekly EPO (note 02/27), start vitamin D supplementation, start regular multivitamin. Vit D level in mid-May. - Will need CKD clinic follow-up - Daily weights 77.4 Heme: JAVON. Transfuse for Hgb < 7. ID: s/p antibiotics. C diff precautions for 4 weeks until Mar 29. - ID consulted 02/11, 02/17, 02/22 - S/p PO Vanc BID for c diff (02/01- 03/01/22). - S/p Cefepime (02/11 - 02/22) - can d/c due to antibiotic resistance - S/p IV flagyl q8h for c diff (02/16 - 02/22) - S/p Unasyn (01/23-01/26 and 01/29-02/01), Cefazolin (01/26-01/29 and 02/01-02/07), Zosyn (02/08-02/11) - 02/15 L Thigh wound culture: Pseudomonas, Serratia, Gram positive cocci - 02/08 and 02/09 wound cx: Pseudomonas, serratia Endo: JAVON MSK: Dressing change at bedside 03/05. Discussion of possible grafting on Tuesday (03/08). - s/p multiple fasciotomies, OR debridements, and wound vac changes - Plastics consulted 02/04, okay for primary team to close wounds - Ortho consulted 02/17, signed off, weight bearing status to be determined by primary team - Working with PT/OT 2-4x/week Prophy: Resp: OOB, IS; DVT: SQH BID, IPCs, OOB Lines/Drains/Tubes/Airways: 5F PICC. Dispo: Floor status; PT/OT consulted. OT 03/02 rec for acute rehab Code Status: Attempt Cardiopulmonary Resuscitation - Inpatient Sixto Medina MD PGY-1, General Surgery Acute Care Surgery [id number] I saw and evaluated the patient with Dr. Medina (resident). I have independently reviewed the relevant laboratory and radiographic studies. I have edited the above note and agree with the details as written. My physical examination confirms the resident's findings. The assessment and plan were formulated in discussion with me at the time of the visit and I agree with them as documented. Jayme Armstrong MD Jayme Armstrong MD - 03/05/2022 9:07 PM EDT Acute Care Surgery Daily Progress Note Admission Date: 01/23/2022 ID: Alix Holland is a 31 y.o. male with HTN, angioedema requiring intubation 04/21, GERD, gastritis, esophagitis, urachal cyst, and polysubstance use (EtOH, cocaine, heroin) who was admitted to the MICU 01/23/2022 s/p VT arrest in the setting of being found down following fentanyl overdose and developing L forearm and L thigh compartment syndrome (s/p L forearm, L buttock, and L thigh fasciotomies) w/ subsequent rhabdomyolysis, renal failure, and hyperkalemia which required CVVH. He was transitioned to iHD and transferred to floor status 02/02, however he had persistent daily transfusion requirement from ongoing wound vac bleeding and returned to the OR x2 (02/04 and 02/05) for irrigation and debridement of fasciotomy wounds, however no focal source of bleeding was identified. He was transferred to the SICU 02/05 after L thigh wound vac filled with alexsandra blood and hgb dropped to 4.6 despite 6U pRBC. He went to IR for embolization of SGA pseudoaneurysm and to the OR for hematoma washout on 02/06. He returned to the OR for washout and debridement again on 02/08 and 02/09. He was subsequently lateralized to the ACS service and transferred to floor status on 02/10. His hospital course has also been notable for asymptomatic COVID-19 infection, C. 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 Procedures: 01/23: L thigh fasciotomy, L lower leg fasciotomy, L buttock fasciotomy, L forearm fasciotomy 01/26: Debridements and wound vac change 01/29: Debridement of fasciotomies, closure of L lower leg fasciotomy, closure of dorsal forearm fasciotomy, partial closure L thigh fasciotomy 01/31: Debridement and wound vac change 02/02: Debridement and wound vac change 02/04: Debridement and wound vac change 02/05: Debridement and wound vac change, 02/06: IR embolization of SGA pseudoaneurysm 02/06: LLE hematoma evacuation and washout 02/08: washout and debridement LLE, vac change LUE 02/09: washout and debridement LLE with vac placement 02/11: washout and vac change, LLE and LUE 02/13: washout and vac change, LLE and LUE 02/15: washout and vac change, LLE and LUE, possible drainage of L gluteal abscess 02/19: washout and vac change, LLE and LUE 02/22: washout and vac change, LLE and LUE 02/24: washout and vac change, LLE and LUE 02/26: washout and vac change, LLE and LUE 03/01: washout and vac change, LLE and LUE 03/03: washout and vac change, LLE and LUE Subjective Interval Events: - UOP 2130cc yesterday - Weight 77.3 kg - Lilypad replaced multiple times overnight - Worked with OT yesterday - Psychiatry saw to offer peer support and resources yesterday Objective Vitals: Last Value Range last 24 hrs Temperature Temp: 36.7 ??C (98.1 ??F) Temp: [36.7 ??C (98.1 ??F)-37.1 ??C (98.8 ??F)] Heart Rate Heart Rate: (!) 105 Heart Rate: -- Blood Pressure BP: (!) 141/92 BP: (132-165)/(87-105) Respiratory Rate Resp: 20 Resp: [16-20] SpO2 SpO2: 98 % SpO2: [98 %-100 %] O2 Device O2 Device: None (Room air) Intake/Output: 03/04 0701 - 03/05 0700 In: 2807 [P.O.:2807] Out: 2980 [Urine:2730] Physical Exam: GEN: resting comfortably in bed, pleasant, conversant, NAD HEENT: normocephalic, atraumatic CHEST: In no respiratory distress on RA CV: Tachycardic 110s, well perfused ABD: soft, nontender, nondistended EXTR: LLE lateral thigh fasciotomy wound with wound vac in place, LLE fasciotomy incision c/d/i, LUEwith wound vac in place. SKIN: WWP NEURO: AOx3, follows commands Labs: Recent Labs 03/03/22 0434 WBC 6.5 HGB 9.1* HCT 26.8* PLATELET 276 Recent Labs 03/04/22 0054 03/03/22 0434 NA 141 142 K 3.7 3.8 CL 101 104 CO2 25 25 BUN 23* 28* CREATININE 1.23 1.27 GLUCOSE 97 105 CALCIUM 8.7 9.0 MAGNESIUM -- 0.80 PHOS -- 5.1* C Diff Screen Date Value Ref Range Status 02/01/2022 Positive (A) Negative Final Comment: PCR Pos C. diff?? Positive (GDH positive, toxin antigen negative, toxin PCR positive) DNA from a toxigenic strain of C. difficile was detected, although the free toxin itself was not detected.?? These results cannot distinguish between colonization and infection. They must be interpreted within the patient???s overall clinical context. Consider other causes for diarrhea or the presence of a non-toxigenic strain. Patient needs to remain on Soap & Water Contact Precautions until discharge or approval by Infection Prevention. Abscess/Wound Aspirate Culture Date Value Ref Range Status 02/19/2022 (A) Final Rare Serratia marcescens Rare Pseudomonas aeruginosa 02/17/2022 (A) Final One colony of Serratia marcescens : Susceptibilities previously reported One colony of Pseudomonas aeruginosa : Susceptibilities previously reported 02/17/2022 (A) Final One colony of Serratia marcescens : Susceptibilities previously reported Anaerobic Culture Date Value Ref Range Status 02/19/2022 No anaerobic organisms isolated Final 02/17/2022 No anaerobic organisms isolated Final 02/17/2022 No anaerobic organisms isolated Final Tissue Culture Date Value Ref Range Status 02/09/2022 (A) Final Few Pseudomonas aeruginosa Few Serratia marcescens Susceptibilities previously reported Blood Culture Date Value Ref Range Status 02/06/2022 No growth at 5 days. Final 02/05/2022 No growth at 5 days. Final 02/01/2022 No growth at 5 days. Final Studies: No recent imaging Assessment and Plan Alix Holland is a 31 y.o. male with HTN, angioedema requiring intubation 04/21, GERD, gastritis, esophagitis, urachal cyst, and polysubstance use (EtOH, cocaine, heroin) who was admitted 01/23/2022 forcompartment syndrome and rhabdomyalysis after being found down. He is now s/p multiple fasciotomies and debridements of LLE and L forearm. Mr. Holland has had a prolonged, complicated hospital course which has been significant for renal replacement therapy secondary to rhabdomyolysis, ICU admissions, multiple debridements, and persistent transfusion requirement. He was transferred to the floor 02/10 and appears to be slowly progressing towards recovery. His wound cultures grew Pseudomonas and Serratia for which he has been covered with by Zosyn. ID consulted 02/11 and Zosyn discontinued and transitioned to cefepime. He also has C. difficile for which he is being treated with p.o. vancomycin which will continue for 10 days (until 03/01/22) following disco ntinuation of cefepime. His leukocytosis has improved. ID was again consulted on 02/22 for cefepime-resistant pseudomonas. Despite the resistence, Mr. Holland has been afebrile and without a leukocytosis so the decision was made to stop cefepime and flagyl. His last dialysis was 02/18/22, central access remains in place due to lack of peripheral access options. His Cr continues to improve, and his urine output remains high. Given his improved renal function, Nephrology recommended stopping weekly EPO, resuming a normal diet, starting vitamin D supplementation and a normal multivitamin. Underwent vac change for LUE and LLE today at bedside w/ 5cc of lidocaine (in the upper extremity only) and .4 IV dilaudid. See note. Valeriy tolerated it well. He continues to work with PT and OT to gain strength. Potential skin graft on 03/08. Plan: Neuro: [place] PO Tylenol, PO Oxycodone 10-15 PRN Q4 #Polysubstance abuse, found down following fentanyl ingestion, Toxic metabolic encephalopathy, bilateral globus pallidum infarcts - Thiamine, folate supplementation - Q shift neurovascular checks - Neurology consulted 01/23, re-consulted 02/16, no changes to plan --- Expected BG evolution on MRI. No further w/u --- Re-consult neuro closer to d/c for EMG/NCS testing for peripheral neuropathy Psych: BIT (03/02): RC to follow. Expressing desire to leave room. CV: Amlodipine 10mg daily - Persistent tachycardia, likely d/t increased metabolic demand from wounds and infections Resp: Encourage IS, OOB GI: Marinol 10mg BID, Lactulose BID PRN FEN: F: PO ad minoo E: N: Low phosphate diet. - Nutrition (03/01): recommend limiting NPO time for nutritional concerns in addition to increased protein intake and milk with meals. Renal/: - 03/01: Ferritin 693, Total Fe 21, TIBC 185. Nephrology signed off. Recommended (03/02) IV iron to start on 03/08 (300mg daily for 3 days) followed by oral iron supplements w/ bowel reg. - Per nephrology, begin IV iron after Vancomycin course completed 03/01/22 (02/25), Stop weekly EPO (note 02/27), start vitamin D supplementation, start regular multivitamin. Vit D level in mid-May. - Will need CKD clinic follow-up - Daily weights 89.5 (89.7) Heme: JAVON. Transfuse for Hgb < 7. ID: s/p antibiotics. C diff precautions for 4 weeks until Mar 29. - ID consulted 02/11, 02/17, 02/22 - S/p PO Vanc BID for c diff (02/01- 03/01/22). - S/p Cefepime (02/11 - 02/22) - can d/c due to antibiotic resistance - S/p IV flagyl q8h for c diff (02/16 - 02/22) - S/p Unasyn (01/23-01/26 and 01/29-02/01), Cefazolin (01/26-01/29 and 02/01-02/07), Zosyn (02/08-02/11) - 02/15 L Thigh wound culture: Pseudomonas, Serratia, Gram positive cocci - 02/08 and 02/09 wound cx: Pseudomonas, serratia Endo: JAVON MSK: Dressing change at bedside today. Discussion of possible grafting on Tuesday (03/08). - s/p multiple fasciotomies, OR debridements, and wound vac changes - Plastics consulted 02/04, okay for primary team to close wounds - Ortho consulted 02/17, signed off, weight bearing status to be determined by primary team - Working with PT/OT 2-4x/week Prophy: Resp: OOB, IS; DVT: SQH BID, IPCs, OOB Lines/Drains/Tubes/Airways: 5F PICC. Dispo: Floor status; PT/OT consulted. OT 03/02 rec for acute rehab Code Status: Attempt Cardiopulmonary Resuscitation - Inpatient Nancy Chahal MD PGY-1, General Surgery Acute Care Surgery [id number] I saw and evaluated the patient with Dr. Chahal (resident). I have independently reviewed the relevant laboratory and radiographic studies. I have edited the above note and agree with the details as written. My physical examination confirms the resident's findings. The assessment and plan were formulated in discussion with me at the time of the visit and I agree with them as documented. Jayme Armstrong MD Jaswinder Chung PTA - 03/05/2022 10:55 AM EDT Physical Therapy Note Treatment Number PT: 5 Patient profile: Alix Holland is a 31 y.o.??gentleman admitted to the MICU on 01/23/22 after being found down and encephalopathic by family with verbal reports of Fentanyl ingestion; this was followedby witnessed in-hospital [place] cardiac arrest at the receiving ED (hyperkalemia at the time). He was also noted to have severe rhabdomyolysis with compartment syndrome and resultant ALTHEA. Now s/p??fasciotomies of L thigh, calf forearm and wrist (01/23) and??I+D SHAMAR ROBB (01/26). Previously completed treatment??for aspiration pneumonia versus MSSA CAP. He was also found to have asymptomatic COVID19 infection in admission testing. Scattered punctate infarcts on MR brain and CT COW/carotids from 01/24/22 readas normal.??Neurology believes??MRI findings are related to toxometabolic issues rather than a stroke.??Extubated PM of 01/26/22??and remains on room air. Interval History: Uneventful Social History: Home setup: Pt lives with his father in a two level home with a couple BERNADETTE. Pt's bedroom and bathroom are on the first floor. The bathroom has a tub shower. 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 Enjoys hunting and fishing. DME: none Precautions/Special Considerations: fall risk; soap and water contact; L UE and L LE NWB; wound vacto L UE and L hip Mobility and Positioning Recommendations: ?? Stand pivot transfer with 2 assist and FWW, minimize transfer distances ?? Pt may require a mechanical lift for transfers at this time ?? Please encourage up to chair or bed chair position throughout the day as able. Subjective: I think it went pretty well re:transfers Objective: Patient seen for physical therapy and demonstrated the following: ?? Pain: reports pain, medicated prior to session ? Vital Signs: Stable on RA ? Bed Mobility: Supine to Sit: Max A for L LE, cues for R LE, trunk required supervision with HOB elevated Sit to Supine: Cues to use R LE to assist L LE into bed, HOB flat, pt managed trunk with supervision Scooting: Supervision for scooting toward the edge of bed ? Upright positioning: Steady seated balance without UE support ? Transfers: Sit to Stand: Min A x 2, FWW, elevated bed height Stand to Sit: Min A x 2 to control descent, cues to use UE's to lower Stand pivot transfer x 2, to and from bed and chair, FWW, Min-Mod A x 2, extra time required, small steps cues for weight bearing on UE's and locking L LE, no LOB, one brief buckle but able to self correct ? Gait: unable to assess ? Seated Balance: Static: good Dynamic: fair+, able to reach small distances and remain upright ? Standing Balance: Static: Fair with FWW Dynamic / Gait: fair with FWW ? Therex: Heel slides, manually resisted leg extension, bridging, provided pt with green and red theraband for exercises over the weekend, discussed to pt's father ?? Education: patient has been educated on Bed mobility, Positioning, Safety, Precautions/protocol, Role of therapy and Discharge planning and verbalizes understanding but will benefit from ongoing reinforcement Patient status, treatment, and mobility recommendations discussed with nursing. Pt left supine in bed with call starks within reach, all needs met and family present following visit. Assessment: Pt seen today for physical therapy treatment # 5. Progressing upright mobility, able to perform several stand pivot transfers with no LOB, one mild buckling issue that pt self corrected. Continues to be limited by decreased AROM on L LE and inability to fully weight bear on the L LE. Encour aged exercises and transfers over the weekend to continue progressing mobility. Pt will benefit fromongoing physical therapy to address the above impairments and facilitate return to PLOF. Discharge Recommendations: Based on the current findings, Anticipated Discharge Disposition (PT): acute rehabilitation facilitywhen medically ready for hospital discharge. Consult Recommendations: No other consults recommended at this time. Equipment needs: TBD, anticipate d/c to rehab Physical Therapy Goals: To be achieved by 02/19/22: ?? 1. Pt. to demonstrate knowledge of safety limitations and precautions and will appropriately requestassistance for functional activities and to mobilize. ONGOING 2. Pt. to demonstrate understanding of appropriate exercises. ONGOING 3. Pt. to perform bed mobility with supervision using bed features or adaptive equipment as needed. ONGOING 4. Pt. to perform sit to stand and stand pivot transfers with min A using a front wheeled walker. ONGOING 5. Pt. to ambulate 25 feet with min A using a front wheeled walker. ONGOING 6. Pt will stand with UE support and min A x2 minutes while participating in functional tasks. ONGOING 7. Pt to propel wheelchair x 50 ft. using R UE/LE with supervision. ONGOING 8. Pt will tolerate progression towards upright with stable vital signs. ONGOING Plan: Therapy Frequency (PT): 2-4 times/wk Time IN / OUT: 10:25-10:55 Total Minutes, Physical Therapy: 30 TE-F x 2 JASWINDER CHUNG, [employer] 03/05/2022 Pager: [phone] Physical Therapy Inpatient Rehabilitation Department Tanesha Patel RN - 03/05/2022 5:21 AM EDT OUTCOME EVALUATION NOTE: ?? OUTCOME SUMMARY: Pt AOx4. PO Oxycodone and Tylenol for pain. Dressings had been CDI. Wound vac had been going off dueto blockage, changed the mo pad location at the start of the shift. It worked until midnight then started going off again. On-call resident went to the unit and fixed it. Double lumen PICC capped. Slept on and off throughout the night. Kept NPO for surgery today.? PLAN MOVING FORWARD: For surgery today: Wound vac change and possible skin grafting of left arm Pain management ?? INDIVIDUALIZED FALL PREVENTION INTERVENTIONS: ?? Patient-specific fall risk factors per assessment: [current deficits]:?Hospital??environment,IV lines, generalized weakness ?? Assistance [level of assistance required for transfers and ambulation]:?? 2A/Lift ?? Supervision [direct monitoring required during toileting and ADLs]:?Hands??on ?? Surveillance [continuous indirect monitoring]: Masimo,??Purposeful??rounding ?? CARE PLAN GOAL OUTCOME EVALUATION:? Ongoing Tasha Matthews OTA - 03/04/2022 10:05 AM EDT Occupational Therapy Treatment Note Treatment Number OT: 6 Patient Dx: Per MD note: Alix Holland is a 31 y.o. male with HTN, angioedema requiring intubation 04/21, GERD, gastritis, esophagitis, urachal cyst, and polysubstance use (EtOH, cocaine, heroin) who was admitted to the [facility] 01/23/2022 s/p [place] arrest in the setting of being found down following fentanyloverdose and developing L forearm and L thigh compartment syndrome (s/p L forearm, L buttock, and L thigh fasciotomies) w/ subsequent rhabdomyolysis, renal failure, and hyperkalemia which required CVVH. ?? He was transitioned to iHD and transferred to floor status 02/02, however he had persistent daily transfusion requirement from ongoing wound vac bleeding and returned to the OR x2 (02/04 and 02/05) for irrigation and debridement of fasciotomy wounds, however no focal source of bleeding was identified. 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 He returned to the OR for washout and debridement again on 02/08 and 02/09. He was subsequently lateralized to the ACS service and transferred to floor status on 02/10. ?? His hospital course has also been notable for asymptomatic COVID-19 infection, C. 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 Procedures: 01/23: L thigh fasciotomy, L lower leg fasciotomy, L buttock fasciotomy, L forearm fasciotomy 01/26: Debridements and wound vac change 01/29: Debridement of fasciotomies, closure of L lower leg fasciotomy, closure of dorsal forearm fasciotomy, partial closure L thigh fasciotomy 01/31: Debridement and wound vac change 02/02: Debridement and wound vac change 02/04: Debridement and wound vac change 02/05: Debridement and wound vac change, 02/06:??IR embolization of SGA pseudoaneurysm 02/06:??LLE hematoma evacuation and washout 02/08:??washout and debridement LLE, vac change LUE 02/09:??washout and debridement LLE with vac placement 02/11: washout and vac change, LLE and LUE 02/13: washout and vac change, LLE and LUE 02/15: washout and vac change, LLE and LUE, possible drainage of L gluteal abscess 02/19: washout and vac change, LLE and LUE 02/22: washout and vac change, LLE and LUE ?? Social History: Patient lives in [place], [place] with his dad. Home Setup: 2 [address]ERNA[address]TE, 2 level home, bedroom on 1st level, bathroom available on 1st level, has a tub shower downstairs. DME: none Baseline ADL/Mobility: Pt reports he was independent w/ ADL's and IADL's, had worked for a [employer] company. He enjoys hunting and fishing. He reports he likes [employer] music ?? Interval History: OR yesterday for wound vac change Precautions/Special Considerations: SOAP/WATER; fall risk, LUE/LLE WBAT, L forearm wound vac, L thigh wound vac S: My friend is coming to visit O: Patient seen for skilled OT treatment, and demonstrated the following: ?? Cognition: ?? Behavior / Mood: awake, alert, flat affect, agreeable ?? Alert and oriented to: person, date, place, situation ?? Follows commands: 1 step, 100% of the time, requires increased time and requires repetition ?? Attention: WFL ?? Safety awareness: decreased insight into deficits Self-care/Functional Mobility: ?? Resting in bed, agreeable to OT ?? Supine to sit with max A LLE ?? Sit to stand x2 with min A x2 from bed to walker. Practiced weight shifting and marching in place. Difficulty moving LLE ?? Performed SPT from bed to recliner chair with max A and walker ?? Declined ADL tasks once in recliner chair ?? Pt left in recliner at end of session with all needs within reach and chair alarm active. RN aware Vitals: HR up to 130's with activity Pain: No complaints throughout session Education: Pt/family/caregiver education ongoing regarding: Role of occupational therapy/rehabilitation, ADL, Exercise, Positioning, Precautions/Protocol, Functional Mobility, Balance, Recommendations and Discharge planning. Staff Communication: Patient status, treatment, and mobility recommendations discussed with nursing/other staff ASSESSMENT: Pt seen for continuation of OT plan of care. Performed bed mobility, sit to stands and tolerated stand pivot transfer to recliner chair. Pt motivated to progress functional status and will require rehab when medically ready to maximize independence in ADLs/IADLs and safety. Anticipated Discharge Disposition (OT): acute rehabilitation facility Equipment Needs Upon Discharge (OT): to be determined Other Recommendations: ?? Utilize upright chair position using bed features or transfer to recliner chair as appropriate with mechanical lift (Once bedrest orders have been lifted) ?? Encourage participation in ADL's by providing set up A on tray table and physical assist only as needed. ?? Monitor ROM of R fingers (encourage active and passive flexion and extension of fingers) General Recommendations for Patients Commode/bathroom for toileting when able to do so safely Utilize upright chair position using bed features or transfer to recliner chair as appropriate. Encourage participation in ADL's by providing set up A on tray table and physical assist only as needed Lights on blinds open during day Utilize upright chair position using bed features or transfer to recliner chair as appropriate with mechanical lift (Once bedrest orders have been lifted) Encourage participation in ADL's by providing set up A on tray table and physical assist only as needed. Monitor ROM of R fingers (encourage active and passive flexion and extension of fingers) Goals to be achieved by 03/08/22: -Patient will don/doff UB clothing with supervision seated -Patient will don/doff LB clothing with Min A, seated, with AE, as needed -Patient will complete toileting tasks (hygiene, clothing management, transfers) with Min A and withAE, as needed -Patient will ambulate household distances with CGA and with AD, as needed -Patient will complete UB/LB sponge bathing tasks with supervision, while seated with AE, as needed -Patient will complete grooming task (comb hair, brush teeth, shave) with supervision Therapy Frequency (OT): 2-4 times/wk Total Minutes, Occupational Therapy: 35 ([facility] x2 ([phone]) Pager: [phone] PEG Cole Occupational Therapy Rehabilitation Department Jayme Armstrong MD - 03/04/2022 7:15 AM EDT Acute Care Surgery Daily Progress Note Admission Date: 01/23/2022 ID: Alix Holland is a 31 y.o. male with HTN, angioedema requiring intubation 04/21, GERD, gastritis, esophagitis, urachal cyst, and polysubstance use (EtOH, cocaine, heroin) who was admitted to the MICU 01/23/2022 s/p [place] arrest in the setting of being found down following fentanyl overdose and developing L forearm and L thigh compartment syndrome (s/p L forearm, L buttock, and L thigh fasciotomies) w/ subsequent rhabdomyolysis, renal failure, and hyperkalemia which required CVVH. He was transitioned to iHD and transferred to floor status 02/02, however he had persistent daily transfusion requirement from ongoing wound vac bleeding and returned to the OR x2 (02/04 and 02/05) for irrigation and debridement of fasciotomy wounds, however no focal source of bleeding was identified. He was transferred to the SICU 02/05 after L thigh wound vac filled with alexsandra blood and hgb dropped to 4.6 despite 6U pRBC. He went to IR for embolization of SGA pseudoaneurysm and to the OR for hematoma washout on 02/06. He returned to the OR for washout and debridement again on 02/08 and 02/09. He was subsequently lateralized to the ACS service and transferred to floor status on 02/10. His hospital course has also been notable for asymptomatic COVID-19 infection, C. 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 Procedures: 01/23: L thigh fasciotomy, L lower leg fasciotomy, L buttock fasciotomy, L forearm fasciotomy 01/26: Debridements and wound vac change 01/29: Debridement of fasciotomies, closure of L lower leg fasciotomy, closure of dorsal forearm fasciotomy, partial closure L thigh fasciotomy 01/31: Debridement and wound vac change 02/02: Debridement and wound vac change 02/04: Debridement and wound vac change 02/05: Debridement and wound vac change, 02/06: IR embolization of SGA pseudoaneurysm 02/06: LLE hematoma evacuation and washout 02/08: washout and debridement LLE, vac change LUE 02/09: washout and debridement LLE with vac placement 02/11: washout and vac change, LLE and LUE 02/13: washout and vac change, LLE and LUE 02/15: washout and vac change, LLE and LUE, possible drainage of L gluteal abscess 02/19: washout and vac change, LLE and LUE 02/22: washout and vac change, LLE and LUE 02/24: washout and vac change, LLE and LUE 02/26: washout and vac change, LLE and LUE 03/01: washout and vac change, LLE and LUE 03/03: washout and vac change, LLE and LUE Subjective Interval Events: - UOP 3.2 L (1.77 cc/kg/hr) yesterday - Weight 77.3 kg (03/03) from 82.1 kg (03/01) - s/p washout and vac change, LLE and LUE yesterday - PICC placement yesterday, IJ remains in place. - s/p Vancomycin (ended on 03/01) for C diff. On precautions for 4 weeks. - Worked with PT yesterday - Reporting some pain in the ankle this morning Objective Vitals: Last Value Range last 24 hrs Temperature Temp: 37 ??C (98.6 ??F) Temp: [36.3 ??C (97.3 ??F)-37.2 ??C (99 ??F)] Heart Rate Heart Rate: (!) 105 Heart Rate: [102-105] Blood Pressure BP: (!) 139/94 BP: (139-169)/(94-114) Respiratory Rate Resp: 15 Resp: [11-18] SpO2 SpO2: 98 % SpO2: [95 %-100 %] O2 Device O2 Device: None (Room air) Intake/Output: 03/03 0701 - 03/04 0700 In: 100 [I.V.:100] Out: 3401 [Urine:3200] Physical Exam: GEN: resting comfortably in bed, pleasant, conversant, NAD HEENT: normocephalic, atraumatic CHEST: In no respiratory distress on RA CV: Tachycardic 110s, well perfused ABD: soft, nontender, nondistended EXTR: LLE lateral thigh fasciotomy wound with wound vac in place, LLE fasciotomy incision c/d/i, LUEwith wound vac in place. SKIN: WWP NEURO: AOx3, follows commands Labs: Recent Labs 03/03/22 0434 WBC 6.5 HGB 9.1* HCT 26.8* PLATELET 276 Recent Labs 03/04/22 0054 03/03/22 0434 03/02/22 0423 NA 141 142 138 K 3.7 3.8 4.1 CL 101 104 100 CO2 25 25 25 BUN 23* 28* 32* CREATININE 1.23 1.27 1.33 GLUCOSE 97 105 99 CALCIUM 8.7 9.0 9.0 MAGNESIUM -- 0.80 -- PHOS -- 5.1* -- C Diff Screen Date Value Ref Range Status 02/01/2022 Positive (A) Negative Final Comment: PCR Pos C. diff?? Positive (GDH positive, toxin antigen negative, toxin PCR positive) DNA from a toxigenic strain of C. difficile was detected, although the free toxin itself was not detected.?? These results cannot distinguish between colonization and infection. They must be interpreted within the patient???s overall clinical context. Consider other causes for diarrhea or the presence of a non-toxigenic strain. Patient needs to remain on Soap & Water Contact Precautions until discharge or approval by Infection Prevention. Abscess/Wound Aspirate Culture Date Value Ref Range Status 02/19/2022 (A) Final Rare Serratia marcescens Rare Pseudomonas aeruginosa 02/17/2022 (A) Final One colony of Serratia marcescens : Susceptibilities previously reported One colony of Pseudomonas aeruginosa : Susceptibilities previously reported 02/17/2022 (A) Final One colony of Serratia marcescens : Susceptibilities previously reported Anaerobic Culture Date Value Ref Range Status 02/19/2022 No anaerobic organisms isolated Final 02/17/2022 No anaerobic organisms isolated Final 02/17/2022 No anaerobic organisms isolated Final Tissue Culture Date Value Ref Range Status 02/09/2022 (A) Final Few Pseudomonas aeruginosa Few Serratia marcescens Susceptibilities previously reported Blood Culture Date Value Ref Range Status 02/06/2022 No growth at 5 days. Final 02/05/2022 No growth at 5 days. Final 02/01/2022 No growth at 5 days. Final Studies: No recent imaging Assessment and Plan Alix Holland is a 31 y.o. male with HTN, angioedema requiring intubation 04/21, GERD, gastritis, esophagitis, urachal cyst, and polysubstance use (EtOH, cocaine, heroin) who was admitted 01/23/2022 forcompartment syndrome and rhabdomyalysis after being found down. He is now s/p multiple fasciotomies and debridements of LLE and L forearm. Mr. Holland has had a prolonged, complicated hospital course which has been significant for renal replacement therapy secondary to rhabdomyolysis, ICU admissions, multiple debridements, and persistent transfusion requirement. He was transferred to the floor 02/10 and appears to be slowly progressing towards recovery. His wound cultures grew Pseudomonas and Serratia for which he has been covered with by Zosyn. ID consulted 02/11 and Zosyn discontinued and transitioned to cefepime. He also has C. difficile for which he is being treated with p.o. vancomycin which will continue for 10 days (until 03/01/22) following disco ntinuation of cefepime. His leukocytosis has improved. ID was again consulted on 02/22 for cefepime-resistant pseudomonas. Despite the resistence, Mr. Holland has been afebrile and without a leukocytosis so the decision was made to stop cefepime and flagyl. His last dialysis was 02/18/22, central access remains in place due to lack of peripheral access options. His Cr continues to improve, and his urine output remains high. Given his improved renal function, Nephrology recommended stopping weekly EPO, resuming a normal diet, starting vitamin D supplementation and a normal multivitamin. Underwent vac change for LUE and LLE yesterday. Had little intake yesterday due to late OR time. Encourage adequate nutrition today. He will start IV iron (300mg for 3 days) followed by oral iron supplements (with bowel reg) daily on the 03/08. Plan for washout and vac change tomorrow followed by possible grafting on Tuesday. Plan: Neuro: AMERICA PO Tylenol, PO Oxycodone 10-15 PRN Q4 #Polysubstance abuse, found down following fentanyl ingestion, Toxic metabolic encephalopathy, bilateral globus pallidum infarcts - Thiamine, folate supplementation - Q shift neurovascular checks - Neurology consulted 01/23, re-consulted 02/16, no changes to plan --- Expected BG evolution on MRI. No further w/u --- Re-consult neuro closer to d/c for EMG/NCS testing for peripheral neuropathy Psych: BIT (03/02): RC to follow. Expressing desire to leave room. CV: Amlodipine 10mg daily - Persistent tachycardia, likely d/t increased metabolic demand from wounds and infections Resp: Encourage IS, OOB GI: Marinol 10mg BID, Lactulose BID PRN FEN: F: PO ad minoo E: N: Low phosphate diet, NPO at midnight. - Nutrition (03/01): recommend limiting NPO time for nutritional concerns in addition to increased protein intake and milk with meals. Renal/: - 03/01: Ferritin 693, Total Fe 21, TIBC 185. Nephrology signed off. Recommended (03/02) IV iron to start on 03/08 (300mg daily for 3 days) followed by oral iron supplements w/ bowel reg. - Per nephrology, begin IV iron after Vancomycin course completed 03/01/22 (02/25), Stop weekly EPO (note 02/27), start vitamin D supplementation, start regular multivitamin. Vit D level in mid-May. - Will need CKD clinic follow-up - Daily weights 89.5 (89.7) Heme: JAVON. Transfuse for Hgb < 7. ID: s/p antibiotics. C diff precautions for 4 weeks until Mar 29. - ID consulted 02/11, 02/17, 02/22 - S/p PO Vanc BID for c diff (02/01- 03/01/22). - S/p Cefepime (02/11 - 02/22) - can d/c due to antibiotic resistance - S/p IV flagyl q8h for c diff (02/16 - 02/22) - S/p Unasyn (01/23-01/26 and 01/29-02/01), Cefazolin (01/26-01/29 and 02/01-02/07), Zosyn (02/08-02/11) - 02/15 L Thigh wound culture: Pseudomonas, Serratia, Gram positive cocci - 02/08 and 02/09 wound cx: Pseudomonas, serratia Endo: JAVON MSK: Dressing change 03/03 and scheduled for tomorrow. Discussion of possible grafting on Tuesday. - s/p multiple fasciotomies, OR debridements, and wound vac changes - Plastics consulted 02/04, okay for primary team to close wounds - Ortho consulted 02/17, signed off, weight bearing status to be determined by primary team - Working with PT/OT 2-4x/week Prophy: Resp: OOB, IS; DVT: SQH BID, IPCs, OOB Lines/Drains/Tubes/Airways: R IJ triple lumen HD catheter removed. 5F PICC. Dispo: Floor status; PT/OT consulted. OT 03/02 rec for acute rehab Code Status: Attempt Cardiopulmonary Resuscitation - Inpatient Sixto Jesus Medina MD PGY-1, General Surgery Acute Care Surgery [id number] I saw and evaluated the patient with Dr. Medina (resident). I have independently reviewed the relevant laboratory and radiographic studies. I have edited the above note and agree with the details as written. My physical examination confirms the resident's findings. The assessment and plan were formulated in discussion with me at the time of the visit and I agree with them as documented. Jayme Armstrong MD Tanesha Patel RN - 03/04/2022 5:14 AM EDT OUTCOME EVALUATION NOTE: ?? OUTCOME SUMMARY: Pt AOx4.??S/P woundvac change at OR (03/03) PO Oxycodone for pain. Dressings had been CDI. Wound vac x 2 in situ. Double lumen PICC and Right trialysis cath present. Slept well throughout the night. ?? PLAN MOVING FORWARD: Pain management Monitor labs ?? INDIVIDUALIZED FALL PREVENTION INTERVENTIONS: ?? Patient-specific fall risk factors per assessment: [current deficits]:?Hospital??environment,IV lines, generalized weakness ?? Assistance [level of assistance required for transfers and ambulation]:?? 2A/Lift ?? Supervision [direct monitoring required during toileting and ADLs]:?Hands??on ?? Surveillance [continuous indirect monitoring]: Masimo,??Purposeful??rounding ?? CARE PLAN GOAL OUTCOME EVALUATION:? Ongoing Patel Kearney MD - 03/04/2022 12:17 AM EDT Surgery Post Op Check Alix Holland is a 31 y.o. male with fasciotomies with wound vacs now s/p wound vac exchange. Subjective: No nausea/vomiting, chest pain, or SOB. Pain well controlled, offers no complaints. Objective: Temp: [36.3 ??C (97.3 ??F)-37.1 ??C (98.8 ??F)] Heart Rate: [102-105] Resp: [11-16] BP: (151-169)/(100-114) SpO2: [98 %-100 %] Heart Rate from SpO2: [100 bpm-119 bpm] I/O last 3 completed shifts: In: 1340 [P.O.:1240; I.V.:100] Out: 4050 [Urine:4050] I/O this shift: In: - Out: 201 [Other:200; Blood:1] No recorded voids Physical Exam General: resting comfortably, no acute distress HEENT: normocephalic, atraumatic CVS: regular rate Pulm: non-labored breathing on RA Abd: soft, non tender, non distended. Ext: warm and well perfused, wound vacs in place on LUE and LLE with good suction. Neuro: no focal deficits Assessment/Plan: Alix Holland is a 31 y.o. male status post wound vac exchange currently in stablecondition and recovering well. - pain well controlled - hemodynamically stable - Has not yet voided since OR Patel Kearney MD Urology, PGY-1 03/04/22 Alyson Tuttle RN - 03/03/2022 7:32 PM EDT 1915: pt arrived to unit, attached to monitors, alarms set. VSS, LS clear on 6L simple mask. JOSE J flushed, incisions and wound vacc LUE & LLE WDL. +1 radial pulses and +2 DP pulses. 1944: phase 2, report called to 4W. Herberth Kirkland RN - 03/03/2022 6:32 PM EDT To OR at this time. 2 wound vac's left leg/left arm with him. Left wound vac beeped intermittently for seal problem x1. MD up able to fix it. Father visited at bedside supportive. Medicated with oxycodone q4 hours and scheduled tylenol for pain 04/01- with some relief. NPO. Voiding qs. See Ed H for assessment. Herberth Kirkland RN Jaswinder Chung PTA - 03/03/2022 10:25 AM EDT Physical Therapy Note Treatment Number PT: 4 Patient profile: Alix Holland is a 31 y.o.??gentleman admitted to the MICU on 01/23/22 after being found down and encephalopathic by family with verbal reports of Fentanyl ingestion; this was followedby witnessed in-hospital [place] cardiac arrest at the receiving ED (hyperkalemia at the time). He was also noted to have severe rhabdomyolysis with compartment syndrome and resultant ALTHEA. Now s/p??fasciotomies of L thigh, calf forearm and wrist (01/23) and??I+D SHAMAR ROBB (01/26). Previously completed treatment??for aspiration pneumonia versus MSSA CAP. He was also found to have asymptomatic COVID19 infection in admission testing. Scattered punctate infarcts on MR brain and CT COW/carotids from 01/24/22 readas normal.??Neurology believes??MRI findings are related to toxometabolic issues rather than a stroke.??Extubated PM of 01/26/22??and remains on room air. Interval History: Uneventful Social History: Home setup: Pt lives with his father in a two level home with a couple BERNA[place]. Pt's bedroom and bathroom are on the first floor. The bathroom has a tub shower. Baseline Mobility/Prior level of function: Independent with mobility, ADLs and IADLs, drives, used to work for a [employer] company but is not currently working. Enjoys hunting and fishing. DME: none Precautions/Special Considerations: fall risk; soap and water contact; L UE and L LE NWB; wound vacto L UE and L hip Mobility and Positioning Recommendations: ?? Pt requires a mechanical lift for transfers at this time ?? Please encourage up to chair or bed chair position throughout the day as able. Subjective: My swelling has gone down some in this leg (L LE) Objective: Patient seen for physical therapy and demonstrated the following: ?? Pain: no c/o pain ? Vital Signs: Stable on RA ? Bed Mobility: Supine to Sit: Max A for L LE, cues for R LE, trunk required supervision with HOB elevated Sit to Supine: Max A for L LE, HOB flat, pt managed trunk with supervision Scooting: Supervision for scooting toward the edge of bed ? Upright positioning: Steady seated balance without UE support ? Transfers: Sit to Stand: Elevated bed height progressively lowered, Min A x 2 initially, progressing to Mod A x2 from low surfaces, FWW, sheet gait belt Stand to Sit: Min A x 2 to control descent Multiple stand from the edge of bed, practicing lifting each LE in place and putting back down, during last stand pt able to side step toward HOB with Mod A for walker management and Mod A x 2 for balance while stepping ? Gait: unable to assess ? Seated Balance: Static: good Dynamic: fair+, able to reach small distances and remain upright ? Standing Balance: Static: Fair with FWW Dynamic / Gait: fair with FWW ? Therex: Heel slides, manually resisted leg extension, straight leg raise, bridging, hip abd/add ?? Education: patient has been educated on Bed mobility, Positioning, Safety , Precautions/protocol,Role of therapy and Discharge planning and verbalizes understanding but will benefit from ongoing reinforcement Patient status, treatment, and mobility recommendations discussed with nursing. Pt left supine in bed with call starks within reach, all needs met and family present following visit. Assessment: Pt seen today for physical therapy treatment # 4. Demonstrating improved ability to stand, requires less assist, and able to side step toward HOB today. L LE with slow return of active ROM,encouraged LE exercises throughout the day. Reports fatigue and lightheadedness with standing activit ies, encouraged greater time up out of bed during the day. Making progress towards stand pivot transfers but continues to require mechanical lift today. Pt will benefit from ongoing physical therapy toaddress the above impairments and facilitate return to PLOF. Discharge Recommendations: Based on the current findings, Anticipated Discharge Disposition (PT): acute rehabilitation facilitywhen medically ready for hospital discharge. Consult Recommendations: No other consults recommended at this time. Equipment needs: TBD, anticipate d/c to rehab Physical Therapy Goals: To be achieved by 02/19/22: ?? 1. Pt. to demonstrate knowledge of safety limitations and precautions and will appropriately requestassistance for functional activities and to mobilize. ONGOING 2. Pt. to demonstrate understanding of appropriate exercises. ONGOING 3. Pt. to perform bed mobility with supervision using bed features or adaptive equipment as needed. ONGOING 4. Pt. to perform sit to stand and stand pivot transfers with min A using a front wheeled walker. ONGOING 5. Pt. to ambulate 25 feet with min A using a front wheeled walker. ONGOING 6. Pt will stand with UE support and min A x2 minutes while participating in functional tasks. ONGOING 7. Pt to propel wheelchair x 50 ft. using R UE/LE with supervision. ONGOING 8. Pt will tolerate progression towards upright with stable vital signs. ONGOING Plan: Therapy Frequency (PT): 2-4 times/wk Time IN / OUT: 9:55-10:25 Total Minutes, Physical Therapy: 30 TE-F x 2 JASWINDER CHUNG, [employer] 03/03/2022 Pager: [phone] Physical Therapy Inpatient Rehabilitation Department Jayme Armstrong MD - 03/03/2022 5:19 AM EDT Acute Care Surgery Daily Progress Note Admission Date: 01/23/2022 ID: Alix Holland is a 31 y.o. male with HTN, angioedema requiring intubation 04/21, GERD, gastritis, esophagitis, urachal cyst, and polysubstance use (EtOH, cocaine, heroin) who was admitted to the MICU 01/23/2022 s/p VT arrest in the setting of being found down following fentanyl overdose and developing L forearm and L thigh compartment syndrome (s/p L forearm, L buttock, and L thigh fasciotomies) w/ subsequent rhabdomyolysis, renal failure, and hyperkalemia which required CVVH. He was transitioned to iHD and transferred to floor status 02/02, however he had persistent daily transfusion requirement from ongoing wound vac bleeding and returned to the OR x2 (02/04 and 02/05) for irrigation and debridement of fasciotomy wounds, however no focal source of bleeding was identified. He was transferred to the SICU 02/05 after L thigh wound vac filled with alexsandra blood and hgb dropped to 4.6 despite 6U pRBC. He went to IR for embolization of SGA pseudoaneurysm and to the OR for hematoma washout on 02/06. He returned to the OR for washout and debridement again on 02/08 and 02/09. He was subsequently lateralized to the ACS service and transferred to floor status on 02/10. His hospital course has also been notable for asymptomatic COVID-19 infection, C. 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 Procedures: 01/23: L thigh fasciotomy, L lower leg fasciotomy, L buttock fasciotomy, L forearm fasciotomy 01/26: Debridements and wound vac change 01/29: Debridement of fasciotomies, closure of L lower leg fasciotomy, closure of dorsal forearm fasciotomy, partial closure L thigh fasciotomy 01/31: Debridement and wound vac change 02/02: Debridement and wound vac change 02/04: Debridement and wound vac change 02/05: Debridement and wound vac change, 02/06: IR embolization of SGA pseudoaneurysm 02/06: LLE hematoma evacuation and washout 02/08: washout and debridement LLE, vac change LUE 02/09: washout and debridement LLE with vac placement 02/11: washout and vac change, LLE and LUE 02/13: washout and vac change, LLE and LUE 02/15: washout and vac change, LLE and LUE, possible drainage of L gluteal abscess 02/19: washout and vac change, LLE and LUE 02/22: washout and vac change, LLE and LUE 02/24: washout and vac change, LLE and LUE 02/26: washout and vac change, LLE and LUE 03/01: washout and vac change, LLE and LUE Subjective Interval Events: - UOP (1.3 cc/kg/hr yesterday), Cr 1.27 (133), WBC 6.5, Hgb 9.1 (8.5) - Phos 5.1 - s/p Vancomycin (ended on 03/01) for C diff. On precautions for 4 weeks. - Worked with OT/PT yesterday - Nephrology recs to start IV iron for three days 03/07-03/08 followed by PO iron. Okay with <2mm caliber PICC in replacement of IJ - Reporting some pain this morning - NPO for OR today, reporting thirst Objective Vitals: Last Value Range last 24 hrs Temperature Temp: 36.8 ??C (98.2 ??F) Temp: [36.8 ??C (98.2 ??F)-36.9 ??C (98.4 ??F)] Heart Rate Heart Rate: (!) 116 Heart Rate: -- Blood Pressure BP: (!) 141/98 BP: (141-153)/(98-114) Respiratory Rate Resp: 18 Resp: [17-18] SpO2 SpO2: 97 % SpO2: [93 %-99 %] O2 Device O2 Device: None (Room air) Intake/Output: 03/02 0701 - 03/03 0700 In: 1240 [P.O.:1240] Out: 2500 [Urine:2500] Physical Exam: GEN: resting comfortably in bed, pleasant, conversant, NAD HEENT: normocephalic, atraumatic CHEST: In no respiratory distress on RA CV: Tachycardic 120s, well perfused ABD: soft, nontender, nondistended EXTR: LLE lateral thigh fasciotomy wound with wound vac in place, LLE fasciotomy incision c/d/i, LUEwith wound vac in place. L hand is swollen w/ little range of motion as well as L lower extremity. SKIN: WWP NEURO: AOx3, follows commands Labs: Recent Labs 03/03/22 0434 03/01/22 0200 WBC 6.5 9.3 HGB 9.1* 8.5* HCT 26.8* 25.5* PLATELET 276 288 Recent Labs 03/03/22 0434 03/02/22 0423 03/01/22 0200 NA 142 138 140 K 3.8 4.1 4.3 CL 104 100 102 CO2 25 25 24 BUN 28* 32* 38* CREATININE 1.27 1.33 1.73* GLUCOSE 105 99 106 CALCIUM 9.0 9.0 9.2 MAGNESIUM 0.80 -- 0.77 PHOS 5.1* -- 4.8* C Diff Screen Date Value Ref Range Status 02/01/2022 Positive (A) Negative Final Comment: PCR Pos C. diff?? Positive (GDH positive, toxin antigen negative, toxin PCR positive) DNA from a toxigenic strain of C. difficile was detected, although the free toxin itself was not detected.?? These results cannot distinguish between colonization and infection. They must be interpreted within the patient???s overall clinical context. Consider other causes for diarrhea or the presence of a non-toxigenic strain. Patient needs to remain on Soap & Water Contact Precautions until discharge or approval by Infection Prevention. Abscess/Wound Aspirate Culture Date Value Ref Range Status 02/19/2022 (A) Final Rare Serratia marcescens Rare Pseudomonas aeruginosa 02/17/2022 (A) Final One colony of Serratia marcescens : Susceptibilities previously reported One colony of Pseudomonas aeruginosa : Susceptibilities previously reported 02/17/2022 (A) Final One colony of Serratia marcescens : Susceptibilities previously reported Anaerobic Culture Date Value Ref Range Status 02/19/2022 No anaerobic organisms isolated Final 02/17/2022 No anaerobic organisms isolated Final 02/17/2022 No anaerobic organisms isolated Final Tissue Culture Date Value Ref Range Status 02/09/2022 (A) Final Few Pseudomonas aeruginosa Few Serratia marcescens Susceptibilities previously reported Blood Culture Date Value Ref Range Status 02/06/2022 No growth at 5 days. Final 02/05/2022 No growth at 5 days. Final 02/01/2022 No growth at 5 days. Final Studies: No recent imaging Assessment and Plan Alix Holland is a 31 y.o. male with HTN, angioedema requiring intubation 04/21, GERD, gastritis, esophagitis, urachal cyst, and polysubstance use (EtOH, cocaine, heroin) who was admitted 01/23/2022 forcompartment syndrome and rhabdomyalysis after being found down. He is now s/p multiple fasciotomies and debridements of LLE and L forearm. Mr. Holland has had a prolonged, complicated hospital course which has been significant for renal replacement therapy secondary to rhabdomyolysis, ICU admissions, multiple debridements, and persistent transfusion requirement. He was transferred to the floor 02/10 and appears to be slowly progressing towards recovery. His wound cultures grew Pseudomonas and Serratia for which he has been covered with by Zosyn. ID consulted 02/11 and Zosyn discontinued and transitioned to cefepime. He also has C. difficile for which he is being treated with p.o. vancomycin which will continue for 10 days (until 03/01/22) following disco ntinuation of cefepime. His leukocytosis has improved. ID was again consulted on 02/22 for cefepime-resistant pseudomonas. Despite the resistence, Mr. Holland has been afebrile and without a leukocytosis so the decision was made to stop cefepime and flagyl. His last dialysis was 02/18/22, central access remains in place due to lack of peripheral access options. His Cr continues to improve, and his urine output remains high. Given his improved renal function, Nephrology recommends stopping weekly EPO, resuming a normal diet, starting vitamin D supplementation and a normal multivitamin. We continue to follow daily electrolytes. He will start IV iron (300mg for 3 days) followed by oral iron supplements (with bowel reg) daily onthe 03/08. He should also have a repeat Vitamin D level in Mid-May drawn. Nephrology is okay with a PICC < 2mm in diameter. PT/OT saw for limited mobility in LLE and LUE, who recommend participation in ADLs and monitoring ROM of R fingers. Scheduled to go to OR today. If case if scheduled late today, will allow for CLD in the morning. Plan: Neuro: AMERICA PO Tylenol, PO Oxycodone 10-15 PRN Q4 #Polysubstance abuse, found down following fentanyl ingestion, Toxic metabolic encephalopathy, bilateral globus pallidum infarcts - Thiamine, folate supplementation - Q shift neurovascular checks - Neurology consulted 01/23, re-consulted 02/16, no changes to plan --- Expected BG evolution on MRI. No further w/u --- Re-consult neuro closer to d/c for EMG/NCS testing for peripheral neuropathy Psych: BIT (03/02): RC to follow. Expressing desire to leave room. CV: Amlodipine 10mg daily - Persistent tachycardia, likely d/t increased metabolic demand from wounds and infections Resp: Encourage IS, OOB GI: Marinol 10mg BID, Lactulose BID PRN FEN: F: PO ad minoo E: BMP, Mg, Phos q3 days N: Low phosphate diet - Nutrition (03/01): recommend limiting NPO time for nutritional concerns in addition to increased protein intake and milk with meals. Renal/: - 03/01: Ferritin 693, Total Fe 21, TIBC 185. Nephrology signed off. Recommended (03/02) IV iron to start on 03/08 (300mg daily for 3 days) followed by oral iron supplements w/ bowel reg. - Per nephrology, begin IV iron after Vancomycin course completed 03/01/22 (02/25), STOP WEEKLY EPO pernephrology note on 02/27, start vitamin D supplementation, start regular multivitamin. - Will need CKD clinic follow-up - Daily weights 89.5 (89.7) Heme: JAVON. Transfuse for Hgb < 7. ID: s/p antibiotics. C diff precautions for 4 weeks. - ID consulted 02/11, 02/17, 02/22 - S/p PO Vanc BID for c diff (02/01- 03/01/22). - S/p Cefepime (02/11 - 02/22) - can d/c due to antibiotic resistance - S/p IV flagyl q8h for c diff (02/16 - 02/22) - S/p Unasyn (01/23-01/26 and 01/29-02/01), Cefazolin (01/26-01/29 and 02/01-02/07), Zosyn (02/08-02/11) - 02/15 L Thigh wound culture: Pseudomonas, Serratia, Gram positive cocci - 02/08 and 02/09 wound cx: Pseudomonas, serratia Endo: JAVON MSK: Dressing change 03/03. Discussion timing of grafting - s/p multiple fasciotomies, OR debridements, and wound vac changes - Plastics consulted 02/04, okay for primary team to close wounds - Ortho consulted 02/17, signed off, weight bearing status to be determined by primary team - OT (03/02): Dispo to acute rehab. Rec for sitting upright, participation in ADLs, and monitoring ROMof R fingers. Prophy: Resp: OOB, IS; DVT: SQH BID, IPCs, OOB Lines/Drains/Tubes/Airways: R IJ triple lumen HD catheter. PICC < 2mm caliber to replace IJ (nephro okay with). Dispo: Floor status; PT/OT consulted. OT 03/02 rec for acute rehab Code Status: Attempt Cardiopulmonary Resuscitation - Inpatient I saw and evaluated the patient with Dr. Chahal (resident). I have independently reviewed the relevant laboratory and radiographic studies. I have edited the above note and agree with the details as written. My physical examination confirms the resident's findings. The assessment and plan were formulated in discussion with me at the time of the visit and I agree with them as documented. Jayme Armstrong MD Jayme Armstrong MD - 03/02/2022 1:37 PM EDT Acute Care Surgery Daily Progress Note Admission Date: 01/23/2022 ID: Alix Holland is a 31 y.o. male with HTN, angioedema requiring intubation 04/21, GERD, gastritis, esophagitis, urachal cyst, and polysubstance use (EtOH, cocaine, heroin) who was admitted to the MICU 01/23/2022 s/p VT arrest in the setting of being found down following fentanyl overdose and developing L forearm and L thigh compartment syndrome (s/p L forearm, L buttock, and L thigh fasciotomies) w/ subsequent rhabdomyolysis, renal failure, and hyperkalemia which required CVVH. He was transitioned to iHD and transferred to floor status 02/02, however he had persistent daily transfusion requirement from ongoing wound vac bleeding and returned to the OR x2 (02/04 and 02/05) for irrigation and debridement of fasciotomy wounds, however no focal source of bleeding was identified. He was transferred to the SICU 02/05 after L thigh wound vac filled with alexsandra blood and hgb dropped to 4.6 despite 6U pRBC. He went to IR for embolization of SGA pseudoaneurysm and to the OR for hematoma washout on 02/06. He returned to the OR for washout and debridement again on 02/08 and 02/09. He was subsequently lateralized to the ACS service and transferred to floor status on 02/10. His hospital course has also been notable for asymptomatic COVID-19 infection, C. 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 Procedures: 01/23: L thigh fasciotomy, L lower leg fasciotomy, L buttock fasciotomy, L forearm fasciotomy 01/26: Debridements and wound vac change 01/29: Debridement of fasciotomies, closure of L lower leg fasciotomy, closure of dorsal forearm fasciotomy, partial closure L thigh fasciotomy 01/31: Debridement and wound vac change 02/02: Debridement and wound vac change 02/04: Debridement and wound vac change 02/05: Debridement and wound vac change, 02/06: IR embolization of SGA pseudoaneurysm 02/06: LLE hematoma evacuation and washout 02/08: washout and debridement LLE, vac change LUE 02/09: washout and debridement LLE with vac placement 02/11: washout and vac change, LLE and LUE 02/13: washout and vac change, LLE and LUE 02/15: washout and vac change, LLE and LUE, possible drainage of L gluteal abscess 02/19: washout and vac change, LLE and LUE 02/22: washout and vac change, LLE and LUE 02/24: washout and vac change, LLE and LUE 02/26: washout and vac change, LLE and LUE Subjective Interval Events: - OR yesterday for wound vac change - Continues to have high UOP (0.9 cc/kg/hr yesterday), Cr 1.33 (1.72), Ferritin 693 - s/p Vancomycin (ended on 03/01) for C diff Objective Vitals: Last Value Range last 24 hrs Temperature Temp: 36.9 ??C (98.4 ??F) Temp: [36.5 ??C (97.7 ??F)-37.1 ??C (98.8 ??F)] Heart Rate Heart Rate: (!) 116 Heart Rate: [108-116] Blood Pressure BP: (!) 153/114 (RN aware) BP: (121-153)/(88-114) Respiratory Rate Resp: 18 Resp: [17-26] SpO2 SpO2: 99 % SpO2: [92 %-100 %] O2 Device O2 Device: None (Room air) Intake/Output: 03/01 0701 - 03/02 0700 In: 2175 [P.O.:1575; I.V.:600] Out: 2903 [Urine:2700] Physical Exam: GEN: resting comfortably in bed, pleasant, conversant, NAD HEENT: normocephalic, atraumatic CHEST: In no respiratory distress on RA CV: Tachycardic 120s, well perfused ABD: soft, nontender, nondistended EXTR: moving spontaneously, LLE lateral thigh fasciotomy wound with wound vac in place, LLE fasciotomy incision c/d/i, LUE with wound vac in place. L hand is swollen w/ little range of motion as well as L lower extremity SKIN: WWP NEURO: AOx3, follows commands Labs: Recent Labs 03/01/22 0200 WBC 9.3 HGB 8.5* HCT 25.5* PLATELET 288 Recent Labs 03/02/22 0423 03/01/22 0200 02/28/22 0343 NA 138 140 138 K 4.1 4.3 4.3 CL 100 102 103 CO2 25 24 24 BUN 32* 38* 44* CREATININE 1.33 1.73* 1.92* GLUCOSE 99 106 110 CALCIUM 9.0 9.2 9.1 MAGNESIUM -- 0.77 -- PHOS -- 4.8* -- C Diff Screen Date Value Ref Range Status 02/01/2022 Positive (A) Negative Final Comment: PCR Pos C. diff?? Positive (GDH positive, toxin antigen negative, toxin PCR positive) DNA from a toxigenic strain of C. difficile was detected, although the free toxin itself was not detected.?? These results cannot distinguish between colonization and infection. They must be interpreted within the patient???s overall clinical context. Consider other causes for diarrhea or the presence of a non-toxigenic strain. Patient needs to remain on Soap & Water Contact Precautions until discharge or approval by Infection Prevention. Abscess/Wound Aspirate Culture Date Value Ref Range Status 02/19/2022 (A) Final Rare Serratia marcescens Rare Pseudomonas aeruginosa 02/17/2022 (A) Final One colony of Serratia marcescens : Susceptibilities previously reported One colony of Pseudomonas aeruginosa : Susceptibilities previously reported 02/17/2022 (A) Final One colony of Serratia marcescens : Susceptibilities previously reported Anaerobic Culture Date Value Ref Range Status 02/19/2022 No anaerobic organisms isolated Final 02/17/2022 No anaerobic organisms isolated Final 02/17/2022 No anaerobic organisms isolated Final Tissue Culture Date Value Ref Range Status 02/09/2022 (A) Final Few Pseudomonas aeruginosa Few Serratia marcescens Susceptibilities previously reported Blood Culture Date Value Ref Range Status 02/06/2022 No growth at 5 days. Final 02/05/2022 No growth at 5 days. Final 02/01/2022 No growth at 5 days. Final Studies: No recent imaging Assessment and Plan Alix Holland is a 31 y.o. male with HTN, angioedema requiring intubation 04/21, GERD, gastritis, esophagitis, urachal cyst, and polysubstance use (EtOH, cocaine, heroin) who was admitted 01/23/2022 forcompartment syndrome and rhabdomyalysis after being found down. He is now s/p multiple fasciotomies and debridements of LLE and L forearm. Mr. Holland has had a prolonged, complicated hospital course which has been significant for renal replacement therapy secondary to rhabdomyolysis, ICU admissions, multiple debridements, and persistent transfusion requirement. He was transferred to the floor 02/10 and appears to be slowly progressing towards recovery. His wound cultures grew Pseudomonas and Serratia for which he has been covered with by Zosyn. ID consulted 02/11 and Zosyn discontinued and transitioned to cefepime. He also has C. difficile for which he is being treated with p.o. vancomycin which will continue for 10 days (until 03/01/22) following disco ntinuation of cefepime. His leukocytosis has improved. ID was again consulted on 02/22 for cefepime-resistant pseudomonas. Despite the resistence, Mr. Holland has been afebrile and without a leukocytosis so the decision was made to stop cefepime and flagyl. His last dialysis was 02/18/22, central access remains in place due to lack of peripheral access options. His Cr continues to improve, and his urine output remains high. Given his improved renal function, Nephrology recommends stopping weekly EPO, resuming a normal Phos diet, starting vitamin D supplementation and a normal multivitamin. We continue to follow daily electrolytes. He will start IV iron (300mg for 3 days) followed by oral iron supplements (with bowel reg) daily on the 07 of March. He should also have a repeat Vitamin D level in Mid- May drawn. Nephrology recommends a PICC < 2mm in diameter should we go forward with that route. He went to the OR yesterday for wound vac change and the discussion is ongoing concerning when the grafting will take place. He is also having difficulty mobilizing his left hand and left lower extremity so occupational therapy was contacted concerning these difficulties. Plan: Neuro: #Pain - Scheduled PO Tylenol - PO Oxycodone PRN Q4 #Polysubstance abuse, found down following fentanyl ingestion, Toxic metabolic encephalopathy, bilateral globus pallidum infarcts - Thiamine, folate supplementation - Q shift neurovascular checks - Neurology consulted 01/23, re-consulted 02/16, no changes to plan --- Expected BG evolution on MRI. No further w/u --- Re-consult neuro closer to d/c for EMG/NCS testing for peripheral neuropathy CV: - Persistent tachycardia, likely d/t increased metabolic demand from wounds and infections - Amlodipine 10mg daily Resp: - Encourage IS, OOB GI: - Senna-docusate BID, Lactulose BID PRN - Marinol 10mg BID FEN: F: PO ad minoo E: BMP, Mg, Phos daily N: Regular Diet - Nutrition team consulted, recommend high protein intake. Milk with meals encouraged. Renal/: - Nephrology signed off - IV iron to start on march 08 (300mg daily for 3 days) followed by oral iron supplements w/ bowel reg - F/U ferritin level - Per nephrology, Start IV iron after Vancomycin course completed 03/01/22 (02/25), STOP WEEKLY EPO pernephrology note on 02/27, start vitamin D supplementation, start regular multivitamin. - Will need CKD clinic follow-up - Daily weights 89.5 (89.7) Heme: - DVT ppx per below - Transfuse for Hgb < 7 ID: Cont PO Vanc BID for c diff (02/01- 03/01/22) - off vancomycin - 02/08 and 02/09 wound cx: Pseudomonas, serratia - ID consulted 02/11, 02/17, re-consulted 02/22 appreciate recs - D/c Cefepime (02/11 - 02/22) - can d/c due to antibiotic resistance - D/C IV flagyl q8h for c diff (02/16 - 02/22) - s/p Unasyn (01/23-01/26 and 01/29-02/01), Cefazolin (01/26-01/29 and 02/01-02/07), Zosyn (02/08-02/11) - 02/15 L Thigh wound culture: Pseudomonas, Serratia, Gram positive cocci Endo: - No active interventions, CTM MSK: - wound vac change yesterday, discussion ongoing on the timing of grafting - s/p multiple fasciotomies - s/p multiple OR debridements and wound vac changes - Plastics consulted 02/04, okay for primary team to close wounds - Ortho consulted 02/17, signed off, weight bearing status to be determined by primary team - Reached out to OT to address L hand and L arm Prophy: Resp: OOB, IS DVT: SQH BID, IPCs, OOB Lines/Drains/Tubes/Airways: - R IJ triple lumen HD catheter - remain in place. PICC discussion ongoing Dispo: - Floor status - PT/OT consulted 01/27, appreciate recs Code Status: Attempt Cardiopulmonary Resuscitation - Inpatient Nancy Chahal MD PGY-1, General Surgery 03/02/22 I saw and evaluated the patient with Dr. Chahal (resident). I have independently reviewed the relevant laboratory and radiographic studies. I have edited the above note and agree with the details as written. My physical examination confirms the resident's findings. The assessment and plan were formulated in discussion with me at the time of the visit and I agree with them as documented. Jayme Armstrong MD Tasha Matthews OTA - 03/02/2022 9:15 AM EDT Occupational Therapy Treatment Note Treatment Number OT: 5 Patient Dx: Per note: Alix Holland is a 31 y.o. male with HTN, angioedema requiring intubation 04/21, GERD, gastritis, esophagitis, urachal cyst, and polysubstance use (EtOH, cocaine, heroin) who was admitted to the MICU 01/23/2022 s/p [place] arrest in the setting of being found down following fentanyloverdose and developing L forearm and L thigh compartment syndrome (s/p L forearm, L buttock, and L thigh fasciotomies) w/ subsequent rhabdomyolysis, renal failure, and hyperkalemia which required CVVH. ?? He was transitioned to iHD and transferred to floor status 02/02, however he had persistent daily transfusion requirement from ongoing wound vac bleeding and returned to the OR x2 (02/04 and 02/05) for irrigation and debridement of fasciotomy wounds, however no focal source of bleeding was identified. 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 He returned to the OR for washout and debridement again on 02/08 and 02/09. He was subsequently lateralized to the ACS service and transferred to floor status on 02/10. ?? His hospital course has also been notable for asymptomatic COVID-19 infection, C. 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 Procedures: 01/23: L thigh fasciotomy, L lower leg fasciotomy, L buttock fasciotomy, L forearm fasciotomy 01/26: Debridements and wound vac change 01/29: Debridement of fasciotomies, closure of L lower leg fasciotomy, closure of dorsal forearm fasciotomy, partial closure L thigh fasciotomy 01/31: Debridement and wound vac change 02/02: Debridement and wound vac change 02/04: Debridement and wound vac change 02/05: Debridement and wound vac change, 02/06:??IR embolization of SGA pseudoaneurysm 02/06:??LLE hematoma evacuation and washout 02/08:??washout and debridement LLE, vac change LUE 02/09:??washout and debridement LLE with vac placement 02/11: washout and vac change, LLE and LUE 02/13: washout and vac change, LLE and LUE 02/15: washout and vac change, LLE and LUE, possible drainage of L gluteal abscess 02/19: washout and vac change, LLE and LUE 02/22: washout and vac change, LLE and LUE ?? Social History: Patient lives in [place], [place] with his dad. Home Setup: 2 [address], 2 level home, bedroom on 1st level, bathroom available on 1st level, has a tub shower downstairs. DME: none Baseline ADL/Mobility: Pt reports he was independent w/ ADL's and IADL's, had worked for a [employer]. He enjoys hunting and fishing. He reports he likes country music ?? Interval History: OR yesterday for wound vac change Precautions/Special Considerations: SOAP/WATER; fall risk, LUE/LLE WBAT, L forearm wound vac, L thigh wound vac S: Am I gonna get over to that chair? O: Patient seen for skilled OT treatment, and demonstrated the following: ?? Cognition: ?? Behavior / Mood: awake, alert, flat affect, agreeable ?? Alert and oriented to: person, date, place, situation ?? Follows commands: 1 step, 100% of the time, requires increased time and requires repetition ?? Attention: WFL ?? Safety awareness: decreased insight into deficits Self-care/Functional Mobility: ?? Resting in bed, agreeable to OT ?? Supine to sit with CGA. Required max A to progress LLE off edge of bed ?? Sat edge of bed with initial CGA, progressing to supervision ?? Performed ADLs while seated edge of bed with setup assist ?? Performed sit to stand x2 with mod A x2 from bed to walker. Unable to tolerate standing position for more than 8 seconds due to fatigue and BLEs buckling ?? Placed split leg sling and mechanically lifted from bed to recliner chair ?? Pt left with all needs within reach and chair alarm active. RN aware Vitals: HR up to 130's with activity Pain: 8/10 at rest. Received pain meds prior to session Education: Pt/family/caregiver education ongoing regarding: Role of occupational therapy/rehabilitation, ADL, Exercise, Positioning, Precautions/Protocol, Functional Mobility, Balance, Recommendations and Discharge planning. Staff Communication: Patient status, treatment, and mobility recommendations discussed with nursing/other staff ASSESSMENT: Pt seen for continuation of OT plan of care. Performed bed mobility, edge of bed ADL tasks and sit to stands. Pt motivated to work with therapy. Pt will require rehab when medically ready to maximize independence in ADLs/IADLs and safety. Anticipated Discharge Disposition (OT): acute rehabilitation facility Equipment Needs Upon Discharge (OT): to be determined Other Recommendations: ?? Utilize upright chair position using bed features or transfer to recliner chair as appropriate with mechanical lift (Once bedrest orders have been lifted) ?? Encourage participation in ADL's by providing set up A on tray table and physical assist only as needed. ?? Monitor ROM of R fingers (encourage active and passive flexion and extension of fingers) General Recommendations for Patients Commode/bathroom for toileting when able to do so safely Utilize upright chair position using bed features or transfer to recliner chair as appropriate. Encourage participation in ADL's by providing set up A on tray table and physical assist only as needed Lights on blinds open during day Utilize upright chair position using bed features or transfer to recliner chair as appropriate with mechanical lift (Once bedrest orders have been lifted) Encourage participation in ADL's by providing set up A on tray table and physical assist only as needed. Monitor ROM of R fingers (encourage active and passive flexion and extension of fingers) Goals to be achieved by 03/08/22: -Patient will don/doff UB clothing with supervision seated -Patient will don/doff LB clothing with Min A, seated, with AE, as needed -Patient will complete toileting tasks (hygiene, clothing management, transfers) with Min A and withAE, as needed -Patient will ambulate household distances with CGA and with AD, as needed -Patient will complete UB/LB sponge bathing tasks with supervision, while seated with AE, as needed -Patient will complete grooming task (comb hair, brush teeth, shave) with supervision Therapy Frequency (OT): 2-4 times/wk Total Minutes, Occupational Therapy: 35 ([facility] x2 [phone]) Pager: [phone] PEG Cole Occupational Therapy Rehabilitation Department Madhavi Montano RN - 03/02/2022 5:25 AM EDT OUTCOME EVALUATION NOTE: OUTCOME SUMMARY: PRN Oxycodone 15mg given for 10/10 pain on the left leg and left arm. Wound VAC on both LUE and LLE are holding suction. +doppler signals on bilateral pedal pulses. Voiding in adequate amounts. Prevalon boots on. PLAN MOVING FORWARD: Pain control. Neurovascular checks. Repositioning q2hrs ?? INDIVIDUALIZED FALL PREVENTION INTERVENTIONS: ?? Patient-specific fall risk factors per assessment: [current deficits]:?Narcotic pain med, use of mechanical lift, generalized weakness,? Assistance [level of assistance required for transfers and ambulation]:??2 assist using mechanical lift? Supervision [direct monitoring required during toileting and ADLs]:?Hands on ?? Surveillance [continuous indirect monitoring]:?Purposeful rounding, call starks within reach ?? Madhavi Montano RN - 03/02/2022 1:19 AM EDT Alix arrived from PACU @2322 s/p wound VAC dressing change in the OR. Alert and oriented x4. On a regular diet. Given lenora opal and water at bedside, Russell sandwich requested. LUE wound VAC dressing intact maintaining suction at - 125mmHg. Wound VAC dressing on LLE intact, maintaining suction at -150mmHg. Bed alarm in place. Maintained on soap and water precautions. Patel Kearney MD - 03/02/2022 12:32 AM EDT Surgery Post Op Check Alix Holland is a 31 y.o. male with compartment syndrome of left upper and lower extremity s/p fasciotomies and wound vac placement and now s/p wound vac exchange. Subjective: No nausea/vomiting, chest pain, SOB, pain well controlled, offers no complaints. Restingcomfortably in bed. Objective: Temp: [36.5 ??C (97.7 ??F)-37.1 ??C (98.8 ??F)] Heart Rate: [108-116] Resp: [17-26] BP: (121-144)/(88-102) SpO2: [96 %-100 %] Heart Rate from SpO2: [108 bpm-118 bpm] I/O last 3 completed shifts: In: 1395 [P.O.:1395] Out: 8500 [Urine:8500] I/O this shift: In: 800 [P.O.:200; I.V.:600] Out: 1153 [Urine:1150; Blood:3] Physical Exam General: resting comfortably, no acute distress HEENT: normocephalic, atraumatic CVS: regular rate Pulm: non-labored breathing on RA Abd: soft, non tender, non distended Ext: warm and well perfused; wound vac of left upper and lower extremity with good suction. Neuro: no focal deficits Assessment/Plan: Alix Holland is a 31 y.o. male status post wound vac exchange currently in stablecondition and recovering well. - pain well controlled - hemodynamically stable - UOP robust Patel Kearney MD Urology, PGY-1 03/02/22 Brittney Russell RN - 03/01/2022 10:10 PM EDT 2200- Pt arrived to PACU, attached to monitors, alarms on, settings appropriate for pt. No nausea orpain noted. 2250- Pt tolerating sips of water w/o issue 2300- Pt meets recovery criteria, report given to ÁNGEL Hendrickson Jayme Armstrong MD - 03/01/2022 7:08 PM EDT Acute Care Surgery Daily Progress Note Admission Date: 01/23/2022 ID: Alix Holland is a 31 y.o. male with HTN, angioedema requiring intubation 04/21, GERD, gastritis, esophagitis, urachal cyst, and polysubstance use (EtOH, cocaine, heroin) who was admitted to the MICU 01/23/2022 s/p [place] arrest in the setting of being found down following fentanyl overdose and developing L forearm and L thigh compartment syndrome (s/p L forearm, L buttock, and L thigh fasciotomies) w/ subsequent rhabdomyolysis, renal failure, and hyperkalemia which required CVVH. He was transitioned to iHD and transferred to floor status 02/02, however he had persistent daily transfusion requirement from ongoing wound vac bleeding and returned to the OR x2 (02/04 and 02/05) for irrigation and debridement of fasciotomy wounds, however no focal source of bleeding was identified. He was transferred to the SICU 02/05 after L thigh wound vac filled with alexsandra blood and hgb dropped to 4.6 despite 6U pRBC. He went to IR for embolization of SGA pseudoaneurysm and to the OR for hematoma washout on 02/06. He returned to the OR for washout and debridement again on 02/08 and 02/09. He was subsequently lateralized to the ACS service and transferred to floor status on 02/10. His hospital course has also been notable for asymptomatic COVID-19 infection, C. 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 Procedures: 01/23: L thigh fasciotomy, L lower leg fasciotomy, L buttock fasciotomy, L forearm fasciotomy 01/26: Debridements and wound vac change 01/29: Debridement of fasciotomies, closure of L lower leg fasciotomy, closure of dorsal forearm fasciotomy, partial closure L thigh fasciotomy 01/31: Debridement and wound vac change 02/02: Debridement and wound vac change 02/04: Debridement and wound vac change 02/05: Debridement and wound vac change, 02/06: IR embolization of SGA pseudoaneurysm 02/06: LLE hematoma evacuation and washout 02/08: washout and debridement LLE, vac change LUE 02/09: washout and debridement LLE with vac placement 02/11: washout and vac change, LLE and LUE 02/13: washout and vac change, LLE and LUE 02/15: washout and vac change, LLE and LUE, possible drainage of L gluteal abscess 02/19: washout and vac change, LLE and LUE 02/22: washout and vac change, LLE and LUE 02/24: washout and vac change, LLE and LUE 02/26: washout and vac change, LLE and LUE Subjective Interval Events: - Left lower extremity wound vac intermittently alarming for blockage. Sponge added as bridge to avoid clogging of wound vac tube. - Continues to have high UOP (4 cc/kg/hr yesterday), Cr 1.73 (1.92), Ferritin 693 - Remains on Vancomycin ( - 03/01) for C diff Objective Vitals: Last Value Range last 24 hrs Temperature Temp: 37 ??C (98.6 ??F) Temp: [36.7 ??C (98.1 ??F)-37 ??C (98.6 ??F)] Heart Rate Heart Rate: (!) 101 Heart Rate: -- Blood Pressure BP: (!) 139/102 (RN aware) BP: (139-150)/(98-106) Respiratory Rate Resp: 18 Resp: [18] SpO2 SpO2: 92 % SpO2: [92 %-98 %] O2 Device O2 Device: None (Room air) Intake/Output: 02/28 0701 - 03/01 0700 In: 1320 [P.O.:1320] Out: 7900 [Urine:7900] Physical Exam: GEN: resting comfortably in bed, pleasant, conversant, NAD HEENT: normocephalic, atraumatic CHEST: In no respiratory distress on RA CV: Tachycardic 120s, well perfused ABD: soft, nontender, nondistended EXTR: moving spontaneously, LLE lateral thigh fasciotomy wound with wound vac in place, LLE fasciotomy incision c/d/i, LUE with wound vac in place. SKIN: WWP NEURO: AOx3, follows commands Labs: Recent Labs 03/01/22 0200 02/27/22 0436 WBC 9.3 6.6 HGB 8.5* 8.0* HCT 25.5* 24.7* PLATELET 288 267 Recent Labs 03/01/22 0200 02/28/22 0343 02/27/22 0436 NA 140 138 142 K 4.3 4.3 4.6 CL 102 103 105 CO2 24 24 24 BUN 38* 44* 57* CREATININE 1.73* 1.92* 2.29* GLUCOSE 106 110 108 CALCIUM 9.2 9.1 8.7 MAGNESIUM 0.77 -- 0.74 PHOS 4.8* -- 4.5 C Diff Screen Date Value Ref Range Status 02/01/2022 Positive (A) Negative Final Comment: PCR Pos C. diff?? Positive (GDH positive, toxin antigen negative, toxin PCR positive) DNA from a toxigenic strain of C. difficile was detected, although the free toxin itself was not detected.?? These results cannot distinguish between colonization and infection. They must be interpreted within the patient???s overall clinical context. Consider other causes for diarrhea or the presence of a non-toxigenic strain. Patient needs to remain on Soap & Water Contact Precautions until discharge or approval by Infection Prevention. Abscess/Wound Aspirate Culture Date Value Ref Range Status 02/19/2022 (A) Final Rare Serratia marcescens Rare Pseudomonas aeruginosa 02/17/2022 (A) Final One colony of Serratia marcescens : Susceptibilities previously reported One colony of Pseudomonas aeruginosa : Susceptibilities previously reported 02/17/2022 (A) Final One colony of Serratia marcescens : Susceptibilities previously reported Anaerobic Culture Date Value Ref Range Status 02/19/2022 No anaerobic organisms isolated Final 02/17/2022 No anaerobic organisms isolated Final 02/17/2022 No anaerobic organisms isolated Final Tissue Culture Date Value Ref Range Status 02/09/2022 (A) Final Few Pseudomonas aeruginosa Few Serratia marcescens Susceptibilities previously reported Blood Culture Date Value Ref Range Status 02/06/2022 No growth at 5 days. Final 02/05/2022 No growth at 5 days. Final 02/01/2022 No growth at 5 days. Final Studies: No recent imaging Assessment and Plan Alix Holland is a 31 y.o. male with HTN, angioedema requiring intubation 04/21, GERD, gastritis, esophagitis, urachal cyst, and polysubstance use (EtOH, cocaine, heroin) who was admitted 01/23/2022 forcompartment syndrome and rhabdomyalysis after being found down. He is now s/p multiple fasciotomies and debridements of LLE and L forearm. Mr. Holland has had a prolonged, complicated hospital course which has been significant for renal replacement therapy secondary to rhabdomyolysis, ICU admissions, multiple debridements, and persistent transfusion requirement. He was transferred to the floor 02/10 and appears to be slowly progressing towards recovery. His wound cultures grew Pseudomonas and Serratia for which he has been covered with by Zosyn. ID consulted 02/11 and Zosyn discontinued and transitioned to cefepime. He also has C. difficile for which he is being treated with p.o. vancomycin which will continue for 10 days (until 03/01/22) following disco ntinuation of cefepime. His leukocytosis has improved. ID was again consulted on 02/22 for cefepime-resistant pseudomonas. Despite the resistence, Mr. Holland has been afebrile and without a leukocytosis so the decision was made to stop cefepime and flagyl. His last dialysis was 02/18/22, central access remains in place due to lack of peripheral access options. His Cr continues to improve, and his urine output remains high. Given his improved renal function, Nephrology recommends stopping weekly EPO, resuming a normal Phos diet, starting vitamin D supplementation and a normal multivitamin. We continue to follow daily electrolytes. He is scheduled to return to the OR today for a wound vac change. Zosyn course to finish today. Nephrology following - okay to proceed with PICC placement. Appreciate additional recommendations following iron studies. Plan: Neuro: #Pain - Scheduled PO Tylenol - PO Oxycodone PRN Q4 #Polysubstance abuse, found down following fentanyl ingestion, Toxic metabolic encephalopathy, bilateral globus pallidum infarcts - Thiamine, folate supplementation - Q shift neurovascular checks - Neurology consulted 01/23, re-consulted 02/16, no changes to plan --- Expected BG evolution on MRI. No further w/u --- Re-consult neuro closer to d/c for EMG/NCS testing for peripheral neuropathy CV: - Persistent tachycardia, likely d/t increased metabolic demand from wounds and infections - Amlodipine 10mg daily Resp: - Encourage IS, OOB GI: - Senna-docusate BID, Lactulose BID PRN - Marinol 10mg BID FEN: F: PO ad minoo E: BMP, Mg, Phos daily N: NPO for OR - Nutrition team consulted, recommend high protein intake. Milk with meals encouraged. Renal/: - Nephrology following, recs appreciated. - F/U ferritin level - Per nephrology, Start IV iron after Vancomycin course completed 03/01/22 (02/25), STOP WEEKLY EPO pernephrology note on 02/27, start vitamin D supplementation, start regular multivitamin. - Will need CKD clinic follow-up - Daily weights 89.5 (89.7) Heme: - DVT ppx per below - Transfuse for Hgb < 7 ID: Cont PO Vanc BID for c diff (02/01- 03/01/22) - 02/08 and 02/09 wound cx: Pseudomonas, serratia - ID consulted 02/11, 02/17, re-consulted 02/22 appreciate recs - D/c Cefepime (02/11 - 02/22) - can d/c due to antibiotic resistance - D/C IV flagyl q8h for c diff (02/16 - 02/22) - s/p Unasyn (01/23-01/26 and 01/29-02/01), Cefazolin (01/26-01/29 and 02/01-02/07), Zosyn (02/08-02/11) - 02/15 L Thigh wound culture: Pseudomonas, Serratia, Gram positive cocci Endo: - No active interventions, CTM MSK: - wound vac change today - s/p multiple fasciotomies - s/p multiple OR debridements and wound vac changes - Plastics consulted 02/04, okay for primary team to close wounds - Ortho consulted 02/17, signed off, weight bearing status to be determined by primary team Prophy: Resp: OOB, IS DVT: SQH BID, IPCs, OOB Lines/Drains/Tubes/Airways: - R IJ triple lumen HD catheter - remain in place. Dispo: - Floor status - PT/OT consulted 01/27, appreciate recs Code Status: Attempt Cardiopulmonary Resuscitation - Inpatient Sixto Medina MD PGY-1, General Surgery 03/01/22 I saw and evaluated the patient with Dr. Medina (resident). I have independently reviewed the relevant laboratory and radiographic studies. I have edited the above note and agree with the details as written. My physical examination confirms the resident's findings. The assessment and plan were formulated in discussion with me at the time of the visit and I agree with them as documented. The patient is a 31-year-old man who developed compartment syndrome which required debridement of his left upper and left lower extremities. He also went extensive incision and drainage and debridementof necrotic tissue. He has now been to the operating room multiple times and is in his recovery phase, currently being considered for skin grafting by plastic surgery. He is n.p.o. for the operating room today. On my exam this morning neither VAC is holding suction. He has no complaints at this time. He has also completed his period of C. difficile isolation and his antibiotic regimen is now complete. He still has a hemodialysis line in place but is not currently requiring dialysis and so we will discuss placement of a PICC line both with the nephrology and the PICC line teams today. Resume regulardiet after the operating room. Jayme Armstrong MD Denilson Muniz - 03/01/2022 3:38 PM EDT [facility] Encounter Note Patient Name: Alix Holland : [id number] MR#: [id number] Admit Date: 01/23/2022 12:29 AM Hospital Day 37 days Narrative:Follow-up visit for continued assessment and support. Patient was sleeping and I will visit an other time. Assessment: Intervention and Outcome: Follow-up: Time in Direct Care: Denilson Muniz 03/01/[address] - 03/01/2022 7:54 AM EDT Nutrition Progress Note Alix Holland is a 31 y.o. male ??with history of polysubstance abuse currently admitted for fentanyl OD with LUE and LLE compartment syndrome s/p L forearm, L thigh/buttock and L lower leg fasciotomies, rhabdomyolysis, ARF and hyperkalemic VT arrest (on CVVH) with recurrent L thigh fasciotomy wound b leeding and hemorrhagic shock now 3 days s/p IR embolization of L circumflex iliac artery, Left internal iliac gluteal arterial branches, and left superior gluteal artery via R [employer] [employer] access. Reason for intervention: Follow up Nutrition Recommendations: Continue regular diet Please try to limit NPO status Pt with high protein needs- will encourage double portion of protein rich items Milk w/ meals encouraged Family at bedside agreea to help w/ menu selections in an effort to maximize protein intake Patient now meets criteria for severe protein calorie malnutrition as outlined below. Active Orders Diet NPO diet (Give Meds) Frequency: Effective Now Number of Occurrences: Until Specified Nourishments Adult diet Oral Supplements Other; Ensure Compact Frequency: Effective Now Number of Occurrences: Until Specified Lab Results Component Value Date NA 140 03/01/2022 K 4.3 03/01/2022 CL 102 03/01/2022 CO2 24 03/01/2022 BUN 38 (H) 03/01/2022 CREATININE 1.73 (H) 03/01/2022 ESTGFR 54 (L) 03/01/2022 MAGNESIUM 0.77 03/01/2022 CALCIUM 9.2 03/01/2022 PHOS 4.8 (H) 03/01/2022 AST 21 02/05/2022 ALT <5 02/05/2022 ALKPHOS 74 02/05/2022 BILITOT 0.4 02/05/2022 BILIDIR 0.3 02/05/2022 TRIG 359 01/26/2022 CRP <3.0 04/26/2021 [id number] 535 02/03/2022 25OHVITD 12 (L) 02/19/2022 SFOLATE 3.9 (L) 02/03/2022 IRON 21 (L) 03/01/2022 No results found for: POCGLU Skin Status: Shift Pressure Injury Prevention Occiput: No Injury Thoracic Spine: No Injury Sacral: No Injury Ischial - left: No Injury Ischial - right: No Injury Heel - left: No Injury Heel - right: No Injury Elbow - left: No Injury Elbow - right: No Injury Device Sites: O2 sat monitor, IV sites Other Sites: WOUND VACS LEFT ARM AND LEFT THIGH Relevant medications: folic acid, marinol, bowel meds, thiamine, Thera M, Ascorbic acid, weekly Vitamin D2 ( started 02/28/22) Last Bowel Movement: 02/28/22 Admit Weight: 101.8 kg Estimated body mass index is 24.53 kg/m?? as calculated from the following: Height as of this encounter: 182.9 cm (6' 0.01). Weight as of this encounter: 82.1 kg (180 lb 14.4 oz). [place] Body Weight: 80.9kg- [place] Usual Body Weight: Pt reports 220-225 lb ( 100-102 kg) 3.5% wt loss since admission (2 weeks)- clinically significant 2.7% x 1 week - clinically significant Wt Readings from Last 10 Encounters: 03/01/22 82.1 kg (180 lb 14.4 oz) 04/28/21 98.1 kg (216 lb 4.3 oz) 02/22/19 108.9 kg (240 lb) 05/03/18 113.4 kg (250 lb) 04/27/13 90.7 kg (200 lb) Patient Vitals for the past 168 hrs: Weight 03/01/22 0511 82.1 kg (180 lb 14.4 oz) 02/27/22 0535 89.5 kg (197 lb 6.4 oz) 02/24/22 0750 89.7 kg (197 lb 12.8 oz) Assessment: Based on IBW 80.9kg Estimated needs: Calories: 8741-2711 (25-30kcal/kg) Protein: 120 grams (1.5 g/kg UBW) - pt on iHD w/ wound vacs Nutrition Focused Physical Exam (NFPE): Performed on 03/01/22. Subcutaneous fat loss at Orbital region: Moderate Upper arm region (triceps/biceps): Mild Thoracic and lumbar region (ribs, lower back and maxillary line): Not assessed Lean muscle loss to Hoahaoism region (temporalis muscle): Moderate Clavicle bone region (pectoralis major): None present Dorsal hand (interosseous muscle): None present Shoulder (deltoid): Mild Scapular bone region (latissimus dorsi, trapezius muscles): Not assessed Thigh region (quadriceps muscle): Mild Posterior calf region (gastrocnemius muscle): Not assessed- in wraps Fluid accumulation: Not assessed- Nutrition intake and intake history/Interview: 03/01/22: Follow up w/ pt & family. Pt much more alert and eating much better; he is ordering milkw/ most meals and a protein entree with each meal. He is now off iHD but remain so wound vacs and continues w/ missed meals 2/2 wound vac changes. Wt down significantly but also in neg fluid balance; unclear about 7 kg drop overnite; however, he is down ~ 19% of his stated UBW since admit 6-7 weeks ago. Continue to encourage protein intake; family assisting w/ menu selections and snacks at bedside. Vitamin D supplementation noted 02/23: Pt with less npo time recently, although po intake is ~25% of meals. Pt had 25% of breakfast today (breakfast sandwich, royal, and milk = ~160kcal and 7g protein). Continue to encourage good po and protein intake. No recent weight, please gather new weight. 02/16/22: F/u w/ pt with family at bedside. He is making improved menu selections but is not drinkingsupplements. Reviewed protein needs; family has brought in high protein granola bars and will encourage intake as well as assist w/ menu selections. Pt continues to miss meals for procedures. Low PAB noted; Serum proteins such as albumin and prealbumin are not included as defining characteristics of malnutrition because recent evidence analysis shows that serum levels of these proteins do not change in response to changes in nutrient intake. (Academy of Nutrition and Dietetics) 02/11/22: Pt continue with increased nutrition needs w/ protein losses form iHD & wound vacs and increased needs for healing. Pt ate well at lunch today but has had MANY missed meals for procedures.Pt sleepy but reports he does get hungry. Girl friend at bedside who reports he looks like he has had significant muscle loss. Trial of Nepro unsuccessful. Electrolytes wnl, so please keep on regular diet ( vs renal) and will try Ensure Compact. Vitamin supplementation as above suggested. 02/09/22: Patient is now day 18 with minimal nutrition. Weight loss over the past week is clinically significant and patient now meets severe protein calorie malnutrition criteria. He continues on CRRT and wound vacs, requiring a minimum of 200g protein daily. Team hopeful to advance diet today after OR but it is unlikely that patient will meet nutrition goals via PO intake alone for many days and future OR visits will continue to impede adequate nutrition intake. Recommend TPN as a bridge to meet nutrition needs. Protein-calorie Malnutrition: < or equal to 50% of estimated energy requirement for > or equalto 5 days and >2% weight loss in 1 week is consistent with severe protein-calorie malnutrition inthe setting of acute illness or injury ([employer] J Parenteral Enteral Nutr. 2012 November; 36(3): 273-83) Nutrition to continue to follow up while inpatient Thank you, KAYLAH JANG RD Pager #:[phone] Josh ePck RN - 03/01/2022 2:00 AM EDT Nimco pads replaced on both wound vacs. Arm is patent and left hip wound vac still alarming blocked . Patient NPO for return to OR with planned wound vac change. 0430 left thigh wound vac still alarming occluded. New mo pad applied and cannister changed. Now at 150 mmhg with out alarming. Garza drainage noted, 600 ml in old cannister. Pain managed with oxycodone 15 mg prn with good effect. Patient NPO since midnocs sips with meds . Dominic Almanza MD - 02/28/2022 4:44 PM EDT Hypertension/Nephrology Inpatient Follow-up Alix Holland [id number] 1990 ID: 31 y.o. old male seen for ALTHEA requiring renal replacement therapy following cardiac arrest in the setting of hyperkalemia, rhabdo, and compartment syndrome of the left extremities requiring repeated fasciotomies. Interval History: Patient's left lower extremity is painful today. When asked detailed questions about food/intake he says he is having high amts of protein at every meal, with a double portion of meat at breakfast. He is also constantly thirsty and drinks to thirst. When asked about portion I.e. whether or not this isthe magnitude of 6-7 L as it should be based on UOP he says he is not sure, but it does not seem unreasonable. Physical Examination: Patient Vitals for the past 24 hrs: BP Temp Temp src Resp SpO2 02/28/22 1601 (!) 149/104 37.1 ??C (98.8 ??F) Oral 18 96 % 02/28/22 1143 (!) 142/102 36.8 ??C (98.2 ??F) Oral 18 97 % 02/28/22 0340 -- -- -- -- 97 % 02/28/22 0338 (!) 155/110 37.4 ??C (99.3 ??F) Oral 17 96 % 02/28/22 0027 (!) 150/104 -- -- -- 97 % 02/28/22 0013 (!) 152/114 36.8 ??C (98.2 ??F) Oral 18 96 % 02/27/221950 (!) 150/108 -- -- -- 98 % 02/27/221948 (!) 160/107 37.4 ??C (99.3 ??F) Oral 17 97 % Weight change: Intake/Output Summary (Last 24 hours) at 02/28/2022 1644 Last data filed at 02/28/2022 1600 Gross per 24 hour Intake 2750 ml Output 7925 ml Net -5175 ml General: Patient appears tired, but comfortable in the hospital bed today. CV: RRR, no murmurs, gallops, or rubs. Resp: Breathing comfortably on room air, CTAB Abd: Soft, non-tender, bowel sounds audible. Ext: No appreciable edema. Skin: Fasciotomy wounds covered by bandages on the left upper and lower extremities. Psych: He is making good eye contact and is interactive. Pleasant and calm. Conversational attentionis intact. Labs: Recent Results (from the past 24 hour(s)) Basic Metabolic Panel (non-fasting) Result Value Ref Range Glucose Lvl 110 65 - 199 mg/dL BUN 44 (H) 10 - 20 mg/dL Creatinine 1.92 (H) 0.80 - 1.50 mg/dL Sodium 138 135 - 145 mmol/L Potassium 4.3 3.5 - 5.0 mmol/L Chloride 103 98 - 107 mmol/L CO2 24 22 - 31 mmol/L Anion Gap 11 5 - 15 mmol/L Calcium 9.1 8.5 - 10.5 mg/dL Estimated GFR 47 (L) >=60 mL/min/1.73 m?? Assessment: 31 y.o. old male seen for ALTHEA requiring a period of renal replacement therapy following cardiac arrest in the setting of hyperkalemia, rhabdo, and compartment syndrome of the left extremities requiringrepeated fasciotomies. His last run of iHD was on 02/18/2022. Fortunately his renal function continues to improve. More than likely he will not require additional renal replacement. The large amt of UOPcharted was somewhat concerning for post ATN diuresis; however intake is likely underrepresented in the chart which explains the larger volume and stability that we see in his electrolytes as well as continued improvement in his Cr. # ALTHEA, improved # HTN # Vitamin D Deficiency # Anemia (suspect iron deficiency) # Tachycardia # Elevated BP # Osmotic diuresis in the setting of high solute intake Recommendations: - Continue amlodipine 10 mg daily. Suspect his elevated BP and tachycardia are pain generated. Would not treat with additional BP med unless this is adequately treated and elevated BP persists. Next line agent should be an TAMIE or an ARB, though would be careful to hold this pre-op on days that he goes to the OR. - Please note that I changed vitamin D3 400 U -> D2 46823 weekly for six weeks given his severe deficiency. Would recommend rechecking a level after this (likely after discharge). - Continue daily MV - Avoid NSAIDs, contrast, and other nephrotoxic agents as able - Agree with iron studies on 03/01 as he will likely need replacement This case was discussed with staff substance abuse services director Dr. Thomas. We will sign off at this time. Please do not hesitate to contact me with questions or concerns: Ph [phone] Pg [phone]. Dominic Almanza MD Nephrology Fellow, PGY-4 Associated attestation - Dania Thomas MD - 02/28/2022 5:08 PM EDT The patient was seen and examined with the nephrology fellow. Please see the nephrology fellow's note from today for details. I have reviewed the fellow's note and agree with the exam, and assessment and plan. Per patient report, is eating significant amount of protein, and he is persistently thirsty. Likely drinking more than is documented in I/Os. High protein intake leads to increased free water excretion, explaining the high urine volume. As long as he is keeping up with intake (which seems to be the robert e based on continued improvement in creatinine), this is fine. You might check a serum albumin, and if it is ~4, could try to cut back on the protein intake. Dania Thomas MD Nephrology Pager: [phone] Sixto Medina MD - 02/28/2022 10:28 AM EDT Acute Care Surgery Daily Progress Note Admission Date: 01/23/2022 ID: Alix Holland is a 31 y.o. male with HTN, angioedema requiring intubation 04/21, GERD, gastritis, esophagitis, urachal cyst, and polysubstance use (EtOH, cocaine, heroin) who was admitted to the MICU 01/23/2022 s/p VT arrest in the setting of being found down following fentanyl overdose and developing L forearm and L thigh compartment syndrome (s/p L forearm, L buttock, and L thigh fasciotomies) w/ subsequent rhabdomyolysis, renal failure, and hyperkalemia which required CVVH. He was transitioned to iHD and transferred to floor status 02/02, however he had persistent daily transfusion requirement from ongoing wound vac bleeding and returned to the OR x2 (02/04 and 02/05) for irrigation and debridement of fasciotomy wounds, however no focal source of bleeding was identified. He was transferred to the SICU 02/05 after L thigh wound vac filled with alexsandra blood and hgb dropped to 4.6 despite 6U pRBC. He went to IR for embolization of SGA pseudoaneurysm and to the OR for hematoma washout on 02/06. He returned to the OR for washout and debridement again on 02/08 and 02/09. He was subsequently lateralized to the ACS service and transferred to floor status on 02/10. His hospital course has also been notable for asymptomatic COVID-19 infection, C. 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 Procedures: 01/23: L thigh fasciotomy, L lower leg fasciotomy, L buttock fasciotomy, L forearm fasciotomy 01/26: Debridements and wound vac change 01/29: Debridement of fasciotomies, closure of L lower leg fasciotomy, closure of dorsal forearm fasciotomy, partial closure L thigh fasciotomy 01/31: Debridement and wound vac change 02/02: Debridement and wound vac change 02/04: Debridement and wound vac change 02/05: Debridement and wound vac change, 02/06: IR embolization of SGA pseudoaneurysm 02/06: LLE hematoma evacuation and washout 02/08: washout and debridement LLE, vac change LUE 02/09: washout and debridement LLE with vac placement 02/11: washout and vac change, LLE and LUE 02/13: washout and vac change, LLE and LUE 02/15: washout and vac change, LLE and LUE, possible drainage of L gluteal abscess 02/19: washout and vac change, LLE and LUE 02/22: washout and vac change, LLE and LUE 02/24: washout and vac change, LLE and LUE 02/26: washout and vac change, LLE and LUE Subjective Interval Events: - Left upper extremity wound vac intermittently alarming for blockage; white/yellow drainage seen under Mo Pad. Changed sponge due to concern for purulence and noted Xeroform over wound, likely source of yellow color. - Left lower extremity wound vac also intermittently alarming for blockage; Mo Pad changed this morning to good effect. - Continues to have high UOP (3cc/kg/hr yesterday), Cr 1.92 (2.29), electrolytes WNL, Nephrology updated recommendations (see A/P) - Remains on Vancomycin ( - 03/01) for C diff - Continues to complain of pain in his lower extremity this morning, noted that he did not receive scheduled Tylenol because he was still sleeping Objective Vitals: Last Value Range last 24 hrs Temperature Temp: 36.8 ??C (98.2 ??F) Temp: [36.8 ??C (98.2 ??F)-37.4 ??C (99.3 ??F)] Heart Rate Heart Rate: (!) 101 Heart Rate: -- Blood Pressure BP: (!) 142/102 (rn informed) BP: (142-160)/(102-114) Respiratory Rate Resp: 18 Resp: [17-18] SpO2 SpO2: 97 % SpO2: [95 %-98 %] O2 Device O2 Device: None (Room air) Intake/Output: 02/27 0701 - 02/28 0700 In: 3650 [P.O.:3650] Out: 6675 [Urine:6425] Physical Exam: GEN: resting comfortably in bed, pleasant, conversant, NAD HEENT: normocephalic, atraumatic CHEST: In no respiratory distress on RA CV: HR 100s, well perfused ABD: soft, nontender, nondistended EXTR: moving spontaneously, LLE lateral thigh fasciotomy wound with wound vac in place, LLE fasciotomy incision c/d/i, LUE with wound vac in place. SKIN: WWP NEURO: AOx3, follows commands Labs: Recent Labs 02/27/22 0436 WBC 6.6 HGB 8.0* HCT 24.7* PLATELET 267 Recent Labs 02/28/22 0343 02/27/22 0436 02/26/22 0530 NA 138 142 142 K 4.3 4.6 4.4 CL 103 105 105 CO2 24 24 23 BUN 44* 57* 60* CREATININE 1.92* 2.29* 2.39* GLUCOSE 110 108 101 CALCIUM 9.1 8.7 8.7 MAGNESIUM -- 0.74 -- PHOS -- 4.5 -- C Diff Screen Date Value Ref Range Status 02/01/2022 Positive (A) Negative Final Comment: PCR Pos C. diff?? Positive (GDH positive, toxin antigen negative, toxin PCR positive) DNA from a toxigenic strain of C. difficile was detected, although the free toxin itself was not detected.?? These results cannot distinguish between colonization and infection. They must be interpreted within the patient???s overall clinical context. Consider other causes for diarrhea or the presence of a non-toxigenic strain. Patient needs to remain on Soap & Water Contact Precautions until discharge or approval by Infection Prevention. Abscess/Wound Aspirate Culture Date Value Ref Range Status 02/19/2022 (A) Final Rare Serratia marcescens Rare Pseudomonas aeruginosa 02/17/2022 (A) Final One colony of Serratia marcescens : Susceptibilities previously reported One colony of Pseudomonas aeruginosa : Susceptibilities previously reported 02/17/2022 (A) Final One colony of Serratia marcescens : Susceptibilities previously reported Anaerobic Culture Date Value Ref Range Status 02/19/2022 No anaerobic organisms isolated Final 02/17/2022 No anaerobic organisms isolated Final 02/17/2022 No anaerobic organisms isolated Final Tissue Culture Date Value Ref Range Status 02/09/2022 (A) Final Few Pseudomonas aeruginosa Few Serratia marcescens Susceptibilities previously reported Blood Culture Date Value Ref Range Status 02/06/2022 No growth at 5 days. Final 02/05/2022 No growth at 5 days. Final 02/01/2022 No growth at 5 days. Final Studies: No recent imaging Assessment and Plan Alix Holland is a 31 y.o. male with HTN, angioedema requiring intubation 04/21, GERD, gastritis, esophagitis, urachal cyst, and polysubstance use (EtOH, cocaine, heroin) who was admitted 01/23/2022 forcompartment syndrome and rhabdomyalysis after being found down. He is now s/p multiple fasciotomies and debridements of LLE and L forearm. Mr. Holland has had a prolonged, complicated hospital course which has been significant for renal replacement therapy secondary to rhabdomyolysis, ICU admissions, multiple debridements, and persistent transfusion requirement. He was transferred to the floor 02/10 and appears to be slowly progressing towards recovery. His wound cultures grew Pseudomonas and Serratia for which he has been covered with by Zosyn. ID consulted 02/11 and Zosyn discontinued and transitioned to cefepime. He also has C. difficile for which he is being treated with p.o. vancomycin which will continue for 10 days (until 03/01/22) following disco ntinuation of cefepime. His leukocytosis has improved. ID was again consulted on 02/22 for cefepime-resistant pseudomonas. Despite the resistence, Mr. Holland has been afebrile and without a leukocytosis so the decision was made to stop cefepime and flagyl. Nephrology continues to follow Mr. Holland for rhabdomyolysis and renal failure. His last dialysis was 02/18/22, central access remains in place due to lack of peripheral access options. His Cr continues to improve, and his urine output remains high. Given his improved renal function, Nephrology recommends stopping weekly EPO, resuming a normal Phos diet, starting vitamin D supplementation and a normal multivitamin. We continue to follow daily electrolytes. His increased pain this morning is likely secondary to him missing his scheduled dose of Tylenol in addition to his lower extremity wound vac not working properly. The Mo Pad replacement seems to have solved the blockage, but we will continue to monitor. Plan: Neuro: #Pain - Scheduled PO Tylenol - PO Oxycodone PRN Q4 #Polysubstance abuse, found down following fentanyl ingestion, Toxic metabolic encephalopathy, bilateral globus pallidum infarcts - Thiamine, folate supplementation - Q shift neurovascular checks - Neurology consulted 01/23, re-consulted 02/16, no changes to plan --- Expected BG evolution on MRI. No further w/u --- Re-consult neuro closer to d/c for EMG/NCS testing for peripheral neuropathy CV: - Persistent tachycardia, likely d/t increased metabolic demand from wounds and infections - Amlodipine 10mg daily Resp: - Encourage IS, OOB GI: - Senna-docusate BID, Lactulose BID PRN - Marinol 10mg BID FEN: F: PO ad minoo E: BMP, Mg, Phos daily N: Regular diet, NPO tonight for OR tomorrow - Nutrition team consulted, appreciate recs Renal/: - Nephrology following, recs appreciated. - F/U ferritin level - Per nephrology, Start IV iron after Vancomycin course completed 03/01/22 (02/25), STOP WEEKLY EPO pernephrology note on 02/27, start vitamin D supplementation, start regular multivitamin. - BMP 02/28 WNL. Will need CKD clinic follow-up - Daily weights 89.5 (89.7) Heme: - DVT ppx per below - Transfuse for Hgb < 7 ID: Cont PO Vanc BID for c diff (02/01- ) until 03/01/22 - 02/08 and 02/09 wound cx: Pseudomonas, serratia - ID consulted 02/11, 02/17, re-consulted 02/22 appreciate recs - D/c Cefepime (02/11 - 02/22) - can d/c due to antibiotic resistance - D/C IV flagyl q8h for c diff (02/16 - 02/22) - s/p Unasyn (01/23-01/26 and 01/29-02/01), Cefazolin (01/26-01/29 and 02/01-02/07), Zosyn (02/08-02/11) - 02/15 L Thigh wound culture: Pseudomonas, Serratia, Gram positive cocci Endo: - No active interventions, CTM MSK: - s/p multiple fasciotomies - s/p multiple OR debridements and wound vac changes. Wound vac mo pad replaced on left lower extremity due to blockage. Continue to monitor to ensure wound vac functioning properly. - Plastics consulted 02/04, okay for primary team to close wounds - Ortho consulted 02/17, signed off, weight bearing status to be determined by primary team Prophy: Resp: OOB, IS DVT: SQH BID, IPCs, OOB Lines/Drains/Tubes/Airways: - R IJ triple lumen HD catheter - remain in place. Dispo: - Floor status - PT/OT consulted 01/27, appreciate recs Code Status: Attempt Cardiopulmonary Resuscitation - Inpatient Alonzo Oakley, JEFFERY 02/28/22 Acute Care Surgery [id number] A medical student assisted me in the documentation of this note. I personally saw and evaluated the patient, reviewed all applicable documented studies, and diagnostic images. The assessment and plan were formulated with the care team at the time of the visit and in my presence. I have made edits to the above note and agree with the details above. Sixto Medina MD PGY-1, General Surgery 02/28/22 Rama Flores RN - 02/27/2022 7:40 PM EDT Illness Severity [x] Stable [] Watcher [] Unstable Patient Summary Reason for admission: 01/23 s/p cardiac arrest w/ ROSC, likely due to hyperkalemia; incidentally found to be COVID-positive. Rhabdo; ALTHEA on CRRT (01/23, 01/30 to PM shift, iHD ?02/02); LUE, LLE compartment syndrome s/p fasciotimies, I+D 01/23/22, 01/26/22, I&D w/ partial closure 01/29/22 Relevant PMH: hypertension, angioedema requiring intubation (unclear trigger), GERD, gastritis, esophagitis, and urachal cyst s/p I&D, and polysubstance use (including EtOH, cocaine, heroin) Significant 24 hour events: Patient's left aound vac reporting blockage, wound care and medical team made aware. Dressing and sponge change completed by care team in pm, patient tolerated with prn PO oxycodone and x1 IV dilaudid.Remains afebrile, SBPs elevated but stable. Hr to 120's at times. Good UOP and + BM today. Action List Pain management. Skin grafting planned for Thursday 03/01 Reposition q2hrs. Situational Awareness & Contingency Planning . Synthesis (Verbal Only) (Brief summary, ask questions, restate hutton action/to do items) Nancy Chahal MD - 02/27/2022 7:12 PM EDT Acute Care Surgery Daily Progress Note Admission Date: 01/23/2022 ID: Alix Holland is a 31 y.o. male with HTN, angioedema requiring intubation 04/21, GERD, gastritis, esophagitis, urachal cyst, and polysubstance use (EtOH, cocaine, heroin) who was admitted to the MICU 01/23/2022 s/p VT arrest in the setting of being found down following fentanyl overdose and developing L forearm and L thigh compartment syndrome (s/p L forearm, L buttock, and L thigh fasciotomies) w/ subsequent rhabdomyolysis, renal failure, and hyperkalemia which required CVVH. He was transitioned to iHD and transferred to floor status 02/02, however he had persistent daily transfusion requirement from ongoing wound vac bleeding and returned to the OR x2 (02/04 and 02/05) for irrigation and debridement of fasciotomy wounds, however no focal source of bleeding was identified. He was transferred to the SICU 02/05 after L thigh wound vac filled with alexsandra blood and hgb dropped to 4.6 despite 6U pRBC. He went to IR for embolization of SGA pseudoaneurysm and to the OR for hematoma washout on 02/06. He returned to the OR for washout and debridement again on 02/08 and 02/09. He was subsequently lateralized to the ACS service and transferred to floor status on 02/10. His hospital course has also been notable for asymptomatic COVID-19 infection, C. 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 Procedures: 01/23: L thigh fasciotomy, L lower leg fasciotomy, L buttock fasciotomy, L forearm fasciotomy 01/26: Debridements and wound vac change 01/29: Debridement of fasciotomies, closure of L lower leg fasciotomy, closure of dorsal forearm fasciotomy, partial closure L thigh fasciotomy 01/31: Debridement and wound vac change 02/02: Debridement and wound vac change 02/04: Debridement and wound vac change 02/05: Debridement and wound vac change, 02/06: IR embolization of SGA pseudoaneurysm 02/06: LLE hematoma evacuation and washout 02/08: washout and debridement LLE, vac change LUE 02/09: washout and debridement LLE with vac placement 02/11: washout and vac change, LLE and LUE 02/13: washout and vac change, LLE and LUE 02/15: washout and vac change, LLE and LUE, possible drainage of L gluteal abscess 02/19: washout and vac change, LLE and LUE 02/22: washout and vac change, LLE and LUE 02/24: washout and vac change, LLE and dressing change, LUE Subjective Interval Events: - went to the OR yesterday for wound vac change, no graft - Continues to have high UOP (3.1mg/kg/hr yesterday), Cr 2.29 (2.29), electrolytes WNL - Remains on Vancomycin ( - 03/01) for C diff - Has some pain in his lower extremity following wound vac placement yesterday Objective Vitals: Last Value Range last 24 hrs Temperature Temp: 36.7 ??C (98.1 ??F) Temp: [36.5 ??C (97.7 ??F)-37.3 ??C (99.1 ??F)] Heart Rate Heart Rate: (!) 101 Heart Rate: [90-101] Blood Pressure BP: (!) 145/98 BP: (132-154)/(91-104) Respiratory Rate Resp: 17 Resp: [11-18] SpO2 SpO2: 94 % SpO2: [91 %-100 %] O2 Device O2 Device: None (Room air) Intake/Output: 02/26 0701 - 02/27 0700 In: 2100 [P.O.:2000; I.V.:100] Out: 6505 [Urine:6100] Physical Exam: GEN: resting comfortably in bed, pleasant, conversant, NAD HEENT: normocephalic, atraumatic CHEST: In no respiratory distress on RA CV: HR 110s, well perfused ABD: soft, nontender, nondistended EXTR: moving spontaneously, LLE lateral thigh fasciotomy wound with wound vac in place, LLE fasciotomy incision c/d/i, LUE with wound vac in place. SKIN: WWP NEURO: AOx3, follows commands Labs: Recent Labs 02/27/22 0436 02/25/22 0530 WBC 6.6 9.5 HGB 8.0* 7.5* HCT 24.7* 23.5* PLATELET 267 299 Recent Labs 02/27/22 0436 02/26/22 0530 02/25/22 0530 NA 142 142 139 K 4.6 4.4 4.2 CL 105 105 102 CO2 24 23 23 BUN 57* 60* 65* CREATININE 2.29* 2.39* 2.94* GLUCOSE 108 101 104 CALCIUM 8.7 8.7 8.4* MAGNESIUM 0.74 -- 0.81 PHOS 4.5 -- 4.9* C Diff Screen Date Value Ref Range Status 02/01/2022 Positive (A) Negative Final Comment: PCR Pos C. diff?? Positive (GDH positive, toxin antigen negative, toxin PCR positive) DNA from a toxigenic strain of C. difficile was detected, although the free toxin itself was not detected.?? These results cannot distinguish between colonization and infection. They must be interpreted within the patient???s overall clinical context. Consider other causes for diarrhea or the presence of a non-toxigenic strain. Patient needs to remain on Soap & Water Contact Precautions until discharge or approval by Infection Prevention. Abscess/Wound Aspirate Culture Date Value Ref Range Status 02/19/2022 (A) Final Rare Serratia marcescens Rare Pseudomonas aeruginosa 02/17/2022 (A) Final One colony of Serratia marcescens : Susceptibilities previously reported One colony of Pseudomonas aeruginosa : Susceptibilities previously reported 02/17/2022 (A) Final One colony of Serratia marcescens : Susceptibilities previously reported Anaerobic Culture Date Value Ref Range Status 02/19/2022 No anaerobic organisms isolated Final 02/17/2022 No anaerobic organisms isolated Final 02/17/2022 No anaerobic organisms isolated Final Tissue Culture Date Value Ref Range Status 02/09/2022 (A) Final Few Pseudomonas aeruginosa Few Serratia marcescens Susceptibilities previously reported Blood Culture Date Value Ref Range Status 02/06/2022 No growth at 5 days. Final 02/05/2022 No growth at 5 days. Final 02/01/2022 No growth at 5 days. Final Studies: No recent imaging Assessment and Plan Alix Holland is a 31 y.o. male with HTN, angioedema requiring intubation 04/21, GERD, gastritis, esophagitis, urachal cyst, and polysubstance use (EtOH, cocaine, heroin) who was admitted 01/23/2022 forcompartment syndrome and rhabdomyalysis after being found down. He is now s/p multiple fasciotomies and debridements of LLE and L forearm. Mr. Holland has had a prolonged, complicated hospital course which has been significant for renal replacement therapy secondary to rhabdomyolysis, ICU admissions, multiple debridements, and persistent transfusion requirement. He was transferred to the floor 02/10 and appears to be slowly progressing towards recovery. His wound cultures grew Pseudomonas and Serratia for which he has been covered with by Zosyn. ID consulted 02/11 and Zosyn discontinued and transitioned to cefepime. He also has C. difficile for which he is being treated with p.o. vancomycin which will continue for 10 days (until 03/01/22) following disco ntinuation of cefepime. His leukocytosis has improved. ID was again consulted on 02/22 for cefepime-resistant pseudomonas. Despite the resistence, Mr. Holland has been afebrile and without a leukocytosis so the decision was made to stop cefepime and flagyl. Nephrology is following for Mr. Holland for rhabdomyolysis and renal failure. His last dialysis was 02/18/22. Cr continues to improve. Nephrology is following and determined that he longer requires dialysis; they recommended starting weekly EPO 62534 units, given 02/25. PIV access unable to be established due to wound vac on L arm and poor vasculature on R arm so will maintain his central access. His BMP demonstrated electrolytes within normal limits apart from a low magnesium which was supplemented. We will continue to monitor daily BMPs, Mag, Phos while he continues to auto-diuresis. This morning it was noted that his wound vac on his upper extremity was intermittently alarming with a 'blockage alert'. When the primary team went to change the mo pad, it was noted to have some white 'gooey' material at the base of the mo pad as well as along the periphery. Dr. Dos Santos and Dr. Chatterjee was made aware and the wound vac was taken down at bedside which revealed xeroform covering the base of the tendon on the wound. Wound vac was replaced at bedside. Plan: Neuro: #Pain - Scheduled PO Tylenol - PO Oxycodone PRN Q4 #Polysubstance abuse, found down following fentanyl ingestion, Toxic metabolic encephalopathy, bilateral globus pallidum infarcts - Thiamine, folate supplementation - Q shift neurovascular checks - Neurology consulted 01/23, re-consulted 02/16, no changes to plan --- Expected BG evolution on MRI. No further w/u --- Re-consult neuro closer to d/c for EMG/NCS testing for peripheral neuropathy CV: - Persistent tachycardia, likely d/t increased metabolic demand from wounds and infections - Amlodipine 10mg daily Resp: - Encourage IS, OOB GI: - Senna-docusate BID, Lactulose BID PRN - Marinol 10mg BID FEN: F: PO ad minoo E: BMP, Mg, Phos daily - replete Mag 02/27 N: Regular diet - Nutrition team consulted, appreciate recs Renal/: - Nephrology following, - F/U ferritin level - Per nephrology, Start IV iron after Vancomycin course completed 03/01/22, EPO 16,000 units qweekly (02/25), STOP WEEKLY EPO per nephrology note , start vitamin D supplementation, start regular multivitamin - BMP 02/27 WNL, hold off iHD. Will need CKD clinic follow-up - Daily weights 89.5 (89.7) Heme: - DVT ppx per below - Transfuse for Hgb < 7 ID: Cont PO Vanc BID for c diff (02/01- ) until 03/01/22 - 02/08 and 02/09 wound cx: Pseudomonas, serratia - ID consulted 02/11, 02/17, re-consulted 02/22 appreciate recs - D/c Cefepime (02/11 - 02/22) - can d/c due to antibiotic resistance - D/C IV flagyl q8h for c diff (02/16 - 02/22) - s/p Unasyn (01/23-01/26 and 01/29-02/01), Cefazolin (01/26-01/29 and 02/01-02/07), Zosyn (02/08-02/11) - 02/15 L Thigh wound culture: Pseudomonas, Serratia, Gram positive cocci Endo: - No active interventions, CTM MSK: - s/p multiple fasciotomies - s/p multiple OR debridements and wound vac changes. White 'gooey' material at the base of the lilypad as well as along the periphery was present when mo pad was removed today due to blockage. Dr. Dos Santos and Dr. Chatterjee was made aware and the wound vac was taken down at bedside which revealed xeroform covering the base of the tendon on the wound. Wound vac was replaced at bedside. - Plastics consulted 02/04, okay for primary team to close wounds - Ortho consulted 02/17, signed off, weight bearing status to be determined by primary team Prophy: Resp: OOB, IS DVT: SQH BID, IPCs, OOB Lines/Drains/Tubes/Airways: - R IJ triple lumen HD catheter - remain in place. Dispo: - Floor status - PT/OT consulted 01/27, appreciate recs Code Status: Attempt Cardiopulmonary Resuscitation - Inpatient Nancy Chahal MD PGY-1, General Surgery 02/27/22 Acute Care Surgery [id number] Nancy Chahal MD - 02/27/2022 4:47 PM EDT Bedside wound vac takedown for questionable white/yellow blockage seen during change of lilypad. Upon examination, xeroform was present within the wound bed covering the tendon and most likely culprit of the yellow discoloration seen on lilypad. Nancy Chahal MD 02/27/2022 Dominic Almanza MD - 02/27/2022 12:00 PM EDT Hypertension/Nephrology Inpatient Follow-up Alix Holland [id number] 1990 ID: 31 y.o. old male seen for ALTHEA requiring renal replacement therapy following cardiac arrest in the setting of hyperkalemia, rhabdo, and compartment syndrome of the left extremities requiring repeated fasciotomies. Interval History: Patient feels like he is improving and he is start to work with PT/OT some. When asked he and the nursing staff confirm that his Is & Os might not reflect his real intake. No pressing question or concerns. Physical Examination: Patient Vitals for the past 24 hrs: BP Temp Temp src Resp SpO2 Weight 02/27/22 1624 (!) 146/105 37.1 ??C (98.8 ??F) Oral 18 95 % -- 02/27/22 1229 (!) 158/109 36.9 ??C (98.4 ??F) Axillary 18 97 % -- 02/27/22 0800 (!) 150/105 36.9 ??C (98.4 ??F) Oral 18 96 % -- 02/27/22 0535 -- -- -- -- -- 89.5 kg (197 lb 6.4 oz) 02/27/22 0421 (!) 145/98 36.7 ??C (98.1 ??F) Oral 17 94 % -- 02/27/22 0350 -- -- -- -- 91 % -- 02/26/22 2340 (!) 137/97 37.1 ??C (98.8 ??F) Oral 18 97 % -- 02/26/22 2100 (!) 149/102 37.2 ??C (99 ??F) Oral 17 96 % -- Weight change: Intake/Output Summary (Last 24 hours) at 02/27/2022 1647 Last data filed at 02/27/2022 1422 Gross per 24 hour Intake 4050 ml Output 7200 ml Net -3150 ml General: Patient appears tired, but comfortable in the hospital bed today. CV: RRR, no murmurs, gallops, or rubs. Resp: Breathing comfortably on room air, CTAB Abd: Soft, non-tender, bowel sounds audible. Ext: No appreciable edema. Skin: Fasciotomy wounds covered by bandages on the left upper and lower extremities. Psych: He is making good eye contact and is interactive. Pleasant and calm. Conversational attentionis intact. Labs: Recent Results (from the past 24 hour(s)) Basic Metabolic Panel (non-fasting) Result Value Ref Range Glucose Lvl 108 65 - 199 mg/dL BUN 57 (H) 10 - 20 mg/dL Creatinine 2.29 (H) 0.80 - 1.50 mg/dL Sodium 142 135 - 145 mmol/L Potassium 4.6 3.5 - 5.0 mmol/L Chloride 105 98 - 107 mmol/L CO2 24 22 - 31 mmol/L Anion Gap 13 5 - 15 mmol/L Calcium 8.7 8.5 - 10.5 mg/dL Estimated GFR 38 (L) >=60 mL/min/1.73 m?? Phosphorus Result Value Ref Range Phosphorus 4.5 2.5 - 4.5 mg/dL Magnesium Result Value Ref Range Magnesium 0.74 0.69 - 1.07 mmol/L Hemogram Result Value Ref Range WBC 6.6 4.0 - 9.5 x10(3)/mcL RBC 2.74 (L) 4.58 - 5.54 x10(6)/mcL Hemoglobin 8.0 (L) 13.7 - 16.5 g/dL Hematocrit 24.7 (L) 40.5 - 48.5 % MCV 90.1 82.9 - 93.1 fL MCH 29.2 27.5 - 32.1 pg MCHC 32.4 32.0 - 35.7 g/dL Platelets 267 145 - 357 x10(3)/mcL RDWSD 56.6 (H) 36.0 - 45.0 fL RDWCV 17.2 (H) 11.4 - 13.8 % MPV 8.1 7.6 - 12.9 fL nRBC % Auto 0.0 % nRBC Abs Auto 0.000 0.000 - 0.000 x10(3)/mcL Differential, Automated Result Value Ref Range Neutrophils % 55.6 % Neutr Abs (ANC) 3.68 1.70 - 6.10 x10(3)/mcL Lymphocytes % 21.3 % Lymphocytes Abs 1.4 0.9 - 3.2 x10(3)/mcL Monocytes % 11.8 % Monocyte Abs 0.8 0.3 - 0.9 x10(3)/mcL Eosinophils % 5.9 % Eosinophils Abs 0.4 0.0 - 0.4 x10(3)/mcL Basophils % 0.9 % Basophils Abs 0.1 0.0 - 0.1 x10(3)/mcL Immature Gran % 4.50 % Gemini Gran Abs 0.30 (H) 0.00 - 0.04 x10(3)/mcL Assessment: 31 y.o. old male seen for ALTHEA requiring a period of renal replacement therapy following cardiac arrest in the setting of hyperkalemia, rhabdo, and compartment syndrome of the left extremities requiringrepeated fasciotomies. His last run of iHD was on 02/18/2022. Fortunately his renal function continues to improve. More than likely he will not require additional renal replacement. The large amt of UOPcharted was somewhat concerning for post ATN diuresis; however intake is likely to be underrepresented in the chart which explains the larger volume and stability that we see in his electrolytes. # ALTHEA, improving # HTN # Vitamin D Deficiency # Anemia (suspect iron deficiency) Recommendations: - Recommend stopping weekly Epo in the setting of improving renal function. - Can resume normal phos diet at this time. - Recommend stopping Renal MV at this time. - start vitamin D Supplementation & regular MV in place of above - Continue amlodipine 10 mg daily - Avoid NSAIDs, contrast, and other nephrotoxic agents as able - Agree with iron studies on 03/01 as he will likely need replacement This case was discussed with staff substance abuse services director Dr. Thomas. We will follow peripherally at this time.Please do not hesitate to contact me with questions or concerns: Ph [phone] Pg [phone]. Dominic Almanza MD Nephrology Fellow, PGY-4 Associated attestation - Dania Thomas MD - 02/27/2022 5:33 PM EDT The patient was seen and examined with the nephrology fellow. Please see the nephrology fellow's note from today for details. I have reviewed the fellow's note and agree with the exam, and assessment and plan. Dania Thomas MD Nephrology Pager: [phone] Sixto Medina MD - 02/26/2022 3:14 PM EDT Post-Operative Check Alix Holland is a 31 y.o. male s/p Procedure(s): DRESSING CHANGE (FOR OTHER THAN GALLOWAY) UNDER ANES., UPPER EXTREMITY (WRVU 0.86) DEBRIDEMENT SKIN, SUBCU, MUSCLE, LOWER EXTREMITY (WRVU 2.7) S: No nausea/vomiting, chest pain, SOB, pain moderately controlled but due for pain medication, offers no complaints. Family in room O: Temp: [36.5 ??C (97.7 ??F)-37.1 ??C (98.8 ??F)] Heart Rate: [90-101] Resp: [11-16] BP: (132-154)/(91-104) SpO2: [95 %-100 %] Heart Rate from SpO2: -- I/O last 3 completed shifts: In: 3460 [P.O.:3460] Out: 7800 [Urine:7350; Other:450] I/O this shift: In: 100 [I.V.:100] Out: 1605 [Urine:1600; Blood:5] Recent Results (from the past 24 hour(s)) Basic Metabolic Panel (non-fasting) Result Value Ref Range Glucose Lvl 101 65 - 199 mg/dL BUN 60 (H) 10 - 20 mg/dL Creatinine 2.39 (H) 0.80 - 1.50 mg/dL Sodium 142 135 - 145 mmol/L Potassium 4.4 3.5 - 5.0 mmol/L Chloride 105 98 - 107 mmol/L CO2 23 22 - 31 mmol/L Anion Gap 14 5 - 15 mmol/L Calcium 8.7 8.5 - 10.5 mg/dL Estimated GFR 36 (L) >=60 mL/min/1.73 m?? Physical Exam Gen: A&Ox3, NAD, resting comfortably CVS: Regular rate and rhythm Resp: B breathing comfortably on RA Abd: soft, non-tender, nondistended Ext:: LLE wound with dressing in place,??non tender,??L thigh wound with wound vac in place holding suction, tender to palpation with most superior edge now closed with sutures,??L forearm wound with wound vac in place holding suction, non tender. Incision: dressing c/d/i. No evidence of hematoma/seroma/infection ?? AP Alix Holland is a 31 y.o. male s/p wound vac change currently in stable condition and recovering well - Low Phos, Low Na Diet - Pain moderately controlled, due for medication - Hemodynamically stable, UOP adequate - Continue post operative plan per primary team Alonzo Juan Oakley, MS4 02/26/2022 2:12PM A medical student assisted me in the documentation of this note. I personally saw and evaluated the patient, reviewed all applicable documented studies, and diagnostic images. The assessment and plan were formulated with the care team at the time of the visit and in my presence. I have made edits to the above note and agree with the details above. Sixto Medina MD PGY-1, General Surgery 02/26/22 Sixto Medina MD - 02/26/2022 3:14 PM EDT Acute Care Surgery Daily Progress Note Admission Date: 01/23/2022 ID: Alix Holland is a 31 y.o. male with HTN, angioedema requiring intubation 04/21, GERD, gastritis, esophagitis, urachal cyst, and polysubstance use (EtOH, cocaine, heroin) who was admitted to the MICU 01/23/2022 s/p VT arrest in the setting of being found down following fentanyl overdose and developing L forearm and L thigh compartment syndrome (s/p L forearm, L buttock, and L thigh fasciotomies) w/ subsequent rhabdomyolysis, renal failure, and hyperkalemia which required CVVH. He was transitioned to iHD and transferred to floor status 02/02, however he had persistent daily transfusion requirement from ongoing wound vac bleeding and returned to the OR x2 (02/04 and 02/05) for irrigation and debridement of fasciotomy wounds, however no focal source of bleeding was identified. He was transferred to the SICU 02/05 after L thigh wound vac filled with alexsandra blood and hgb dropped to 4.6 despite 6U pRBC. He went to IR for embolization of SGA pseudoaneurysm and to the OR for hematoma washout on 02/06. He returned to the OR for washout and debridement again on 02/08 and 02/09. He was subsequently lateralized to the ACS service and transferred to floor status on 02/10. His hospital course has also been notable for asymptomatic COVID-19 infection, C. 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 Procedures: 01/23: L thigh fasciotomy, L lower leg fasciotomy, L buttock fasciotomy, L forearm fasciotomy 01/26: Debridements and wound vac change 01/29: Debridement of fasciotomies, closure of L lower leg fasciotomy, closure of dorsal forearm fasciotomy, partial closure L thigh fasciotomy 01/31: Debridement and wound vac change 02/02: Debridement and wound vac change 02/04: Debridement and wound vac change 02/05: Debridement and wound vac change, 02/06: IR embolization of SGA pseudoaneurysm 02/06: LLE hematoma evacuation and washout 02/08: washout and debridement LLE, vac change LUE 02/09: washout and debridement LLE with vac placement 02/11: washout and vac change, LLE and LUE 02/13: washout and vac change, LLE and LUE 02/15: washout and vac change, LLE and LUE, possible drainage of L gluteal abscess 02/19: washout and vac change, LLE and LUE 02/22: washout and vac change, LLE and LUE 02/24: washout and vac change, LLE and dressing change, LUE Subjective Interval Events: - NPO at midnight for OR - Continues to have high UOP (2.5mg/kg/hr yesterday), Cr 2.39 (2.94), Nephrology following; Gave weekly EPO 27095 yesterday, start IV iron after completing Vancomycin course and iron study - Remains on Vancomycin ( - 03/01) for C diff - Left upper extremity wound vac alarming intermittently overnight, replaced Mo Pad this morning with good effect - Feels well this morning without concerns Objective Vitals: Last Value Range last 24 hrs Temperature Temp: 37 ??C (98.6 ??F) Temp: [36.5 ??C (97.7 ??F)-37.2 ??C (99 ??F)] Heart Rate Heart Rate: (!) 101 Heart Rate: [90-111] Blood Pressure BP: (!) 154/102 BP: (132-176)/(91-115) Respiratory Rate Resp: 14 Resp: [11-18] SpO2 SpO2: 96 % SpO2: [95 %-100 %] O2 Device O2 Device: None (Room air) Intake/Output: 02/25 0701 - 02/26 0700 In: 3460 [P.O.:3460] Out: 5800 [Urine:5350] Physical Exam: GEN: resting comfortably in bed, pleasant, conversant, NAD HEENT: normocephalic, atraumatic CHEST: In no respiratory distress on RA CV: HR 110s, well perfused ABD: soft, nontender, nondistended EXTR: moving spontaneously, LLE lateral thigh fasciotomy wound with wound vac in place, LLE fasciotomy incision c/d/i, LUE with wound vac in place. SKIN: WWP NEURO: AOx3, follows commands Labs: Recent Labs 02/25/22 0530 WBC 9.5 HGB 7.5* HCT 23.5* PLATELET 299 Recent Labs 02/26/22 0530 02/25/22 0530 02/24/22 0545 NA 142 139 137 K 4.4 4.2 4.5 CL 105 102 102 CO2 23 23 22 BUN 60* 65* 61* CREATININE 2.39* 2.94* 2.96* GLUCOSE 101 104 102 CALCIUM 8.7 8.4* 8.3* MAGNESIUM -- 0.81 -- PHOS -- 4.9* -- C Diff Screen Date Value Ref Range Status 02/01/2022 Positive (A) Negative Final Comment: PCR Pos C. diff?? Positive (GDH positive, toxin antigen negative, toxin PCR positive) DNA from a toxigenic strain of C. difficile was detected, although the free toxin itself was not detected.?? These results cannot distinguish between colonization and infection. They must be interpreted within the patient???s overall clinical context. Consider other causes for diarrhea or the presence of a non-toxigenic strain. Patient needs to remain on Soap & Water Contact Precautions until discharge or approval by Infection Prevention. Abscess/Wound Aspirate Culture Date Value Ref Range Status 02/19/2022 (A) Final Rare Serratia marcescens Rare Pseudomonas aeruginosa 02/17/2022 (A) Final One colony of Serratia marcescens : Susceptibilities previously reported One colony of Pseudomonas aeruginosa : Susceptibilities previously reported 02/17/2022 (A) Final One colony of Serratia marcescens : Susceptibilities previously reported Anaerobic Culture Date Value Ref Range Status 02/19/2022 No anaerobic organisms isolated Final 02/17/2022 No anaerobic organisms isolated Final 02/17/2022 No anaerobic organisms isolated Final Tissue Culture Date Value Ref Range Status 02/09/2022 (A) Final Few Pseudomonas aeruginosa Few Serratia marcescens Susceptibilities previously reported Blood Culture Date Value Ref Range Status 02/06/2022 No growth at 5 days. Final 02/05/2022 No growth at 5 days. Final 02/01/2022 No growth at 5 days. Final Studies: No recent imaging Assessment and Plan Alix Holland is a 31 y.o. male with HTN, angioedema requiring intubation 04/21, GERD, gastritis, esophagitis, urachal cyst, and polysubstance use (EtOH, cocaine, heroin) who was admitted 01/23/2022 forcompartment syndrome and rhabdomyalysis after being found down. He is now s/p multiple fasciotomies and debridements of LLE and L forearm. Mr. Holland has had a prolonged, complicated hospital course which has been significant for renal replacement therapy secondary to rhabdomyolysis, ICU admissions, multiple debridements, and persistent transfusion requirement. He was transferred to the floor 02/10 and appears to be slowly progressing towards recovery. His wound cultures grew Pseudomonas and Serratia for which he has been covered with by Zosyn. ID consulted 02/11 and Zosyn discontinued and transitioned to cefepime. He also has C. difficile for which he is being treated with p.o. vancomycin which will continue for 10 days (until 03/01/22) following disco ntinuation of cefepime. His leukocytosis has improved. ID was again consulted on 02/22 for cefepime-resistant pseudomonas. Despite the resistence, Mr. Holland has been afebrile and without a leukocytosis so the decision was made to stop cefepime and flagyl. Nephrology is following for Mr. Holland for rhabdomyolysis and renal failure. His last dialysis was 02/18/22. Cr continues to improve. Nephrology is following and determined that he longer requires dialysis; they recommended starting weekly EPO 03566 units, given yesterday. Will obtain PIV access and then remove IG as no longer needed.. We will give IV iron once C diff course completed (due to finish 03/01/22) and following iron study results. Following daily BMPs to monitor electrolytes. We will continue to monitor his Phos and keep him on a low Phos, low Na diet with Calcium carbonate supplementation an needed. Plan: Neuro: #Pain - Scheduled PO Tylenol - PO Oxycodone PRN Q4 #Polysubstance abuse, found down following fentanyl ingestion, Toxic metabolic encephalopathy, bilateral globus pallidum infarcts - Thiamine, folate supplementation - Q shift neurovascular checks - Neurology consulted 01/23, re-consulted 02/16, no changes to plan --- Expected BG evolution on MRI. No further w/u --- Re-consult neuro closer to d/c for EMG/NCS testing for peripheral neuropathy CV: - Persistent tachycardia, likely d/t increased metabolic demand from wounds and infections - Amlodipine 10mg daily Resp: - Encourage IS, OOB GI: - Senna-docusate BID, Lactulose BID PRN - Marinol 10mg BID FEN: F: PO ad minoo E: BMP, Mg, Phos daily N: Low Phos, Low Na diet - Nutrition team consulted, appreciate recs Renal/: - Nephrology following, - F/U ferritin level - Per nephrology, Start IV iron after Vancomycin course completed 03/01/22, EPO 16,000 units qweekly (02/25) - Daily weights Heme: - DVT ppx per below - Transfuse for Hgb < 7 ID: Cont PO Vanc BID for c diff (02/01- ) until 03/01/22 - 02/08 and 02/09 wound cx: Pseudomonas, serratia - ID consulted 02/11, 02/17, re-consulted 02/22 appreciate recs - D/c Cefepime (02/11 - 02/22) - can d/c due to antibiotic resistance - D/C IV flagyl q8h for c diff (02/16 - 02/22) - s/p Unasyn (01/23-01/26 and 01/29-02/01), Cefazolin (01/26-01/29 and 02/01-02/07), Zosyn (02/08-02/11) - 02/15 L Thigh wound culture: Pseudomonas, Serratia, Gram positive cocci Endo: - No active interventions, CTM MSK: - s/p multiple fasciotomies - s/p multiple OR debridements and wound vac changes - Plastics consulted 02/04, okay for primary team to close wounds - Ortho consulted 02/17, signed off, weight bearing status to be determined by primary team Prophy: Resp: OOB, IS DVT: SQH BID, IPCs, OOB Lines/Drains/Tubes/Airways: - R IJ triple lumen HD catheter Dispo: - Floor status - PT/OT consulted 01/27, appreciate recs Code Status: Attempt Cardiopulmonary Resuscitation - Inpatient Alonzo Oakley, MS4 Acute Care Surgery 02/26/22 A medical student assisted me in the documentation of this note. I personally saw and evaluated the patient, reviewed all applicable documented studies, and diagnostic images. The assessment and plan were formulated with the care team at the time of the visit and in my presence. I have made edits to the above note and agree with the details above. Sixto Medina MD PGY-1, General Surgery 02/26/22 Sixto Medina PGY-1, General Surgery Acute Care Surgery [id number] 02/26/22 Jareth Nino MD - 02/26/2022 2:48 PM EDT PATIENT: Alix Holland : 1990 Renal Follow-up Interval history: No acute events in the past 24 hours. Assessment/Plan: #ALTHEA: Creatinine continues to downtrend 2. 39 mg/dL. Urine output 5.3 L. Suspected pigment injury/rhabdomyolysis which is resolving. Likely I think we have been able to liberate him from dialysis for the time being. Compared to the general population he has an elevated risk of developing CKD, and he likely would benefit from establishing with CKD clinic once out of the hospital. Continue to assess electrolytes in the setting of ongoing robust diuresis. If urine output remains greater than 4 L daily patient may require IV fluids and/or D5 as he may have concentration defect contributing to this. Would continue monitoring serum sodium and if it is climbing assess urine output. #Hemodynamics Blood Pressure trend: Systolics 130s to 150s. Believe in the setting some element of permissive hypertension may help ongoing perfusion of the kidney. Antihypertensives: Amlodipine 10mg. Would continue to hold diuresis/RAAS inhibition for now until weestablish where kidney function level off. Volume Status: No concerns of significant volume overload at this point in time. #Hemoglobin HGB 7.5 g/dL. Most recent iron studies are acceptable. Likely ongoing component of acute loss duringfrequent operations. continue weekly EPO a with a plan to repeat iron stores in the next week. #Acid/Base status Bicarb 23 mmol/L not consistent with metabolic acidosis #[facility] Phos is well controlled we will assess parathyroid hormone. Please check Phos 3x weekly Goal:Stage 5 PTH: 150-300 pg/ml Phos 3.5-5.5 Ca 8.5-10.5mg/dl MEDICATIONS: ??? epoetin salina-epbx 16,000 Units Subcutaneous Weekly ??? amLODIPine 10 mg Oral Daily ??? heparin (porcine) 5,000 Units Subcutaneous 2 times per day ??? dronabinoL 10 mg Oral BID ??? ascorbic acid (Vitamin C) 250 mg Oral Daily ??? vitamin B Complex-vitamin C-folic Acid 1 tablet Oral Daily ??? vancomycin 125 mg Oral BID ??? folic acid 1,000 mcg Oral Daily ??? thiamine 100 mg Oral Daily ??? acetaminophen 1,000 mg Oral Q8H [place] No Known Allergies ROS: Unless otherwise stated in history 10 point review of systems is negative PHYSICAL EXAM: Last value Temperature Temp: 37 ??C (98.6 ??F) Heart Rate Heart Rate: (!) 101 Blood Pressure BP: (!) 154/102 Respiratory Rate Resp: 14 SpO2 SpO2: 96 % Appearance - Alert, Comfortable. Skin - No exanthem. HEENT - Sclera white. Mucous membranes moist. Chest:. Lungs clear to ausculatation w/o wheezes/ rhonchi/ crackles. Heart - S1 and S2 clear w/o murmur, gallop, or rub. JVP not elevated. Abd - Soft. + BS. No bruit. Non tender. Ext - . Warm. No cyanosis. Wound vacs in place neuro - No asterixis. STUDIES: Labs: CBC: Recent Labs 02/25/22 0530 02/23/22 0500 02/22/22 0108 WBC 9.5 8.1 8.9 HGB 7.5* 7.0* 7.3* PLATELET 299 300 317 Chemistry: Recent Labs 02/26/22 0530 02/25/22 0530 02/24/22 0545 NA 142 139 137 K 4.4 4.2 4.5 CL 105 102 102 CO2 22 BUN 60* 65* 61* CREATININE 2.39* 2.94* 2.96* GLUCOSE 101 104 102 Recent Labs 02/26/22 0530 02/25/22 0530 02/24/22 0545 02/23/22 0500 02/22/22 0108 CALCIUM 8.7 8.4* 8.3* 8.3* 8.2* MAGNESIUM -- 0.81 -- 0.93 0.90 PHOS -- 4.9* -- 6.2* 5.9* LFT's: Recent Labs 02/21/22 0338 02/12/22 0030 02/05/22 2154 02/04/22 0421 01/28/22 0018 01/27/22 0125 BILITOT -- -- 0.4 -- 0.4 0.9 BILIDIR -- -- 0.3 -- 0.3 0.8* ALBUMIN 2.3* 1.3* 1.4* < > 2.0* 2.1* ALKPHOS -- -- 74 -- 88 82 ALT -- -- <5 -- 237* 418* AST -- -- 21 -- 418* 618* < > = values in this interval not displayed. Jareth Nino MD, MPH Section of Nephrology #[id number] Dania Cotter RN - 02/26/2022 10:02 AM EDT 0950 Patient admitted to PACU. Hand off received from Tamika WESTON, [facility] care assumed. Assessments as documented. Monitors on, alarms audible and individualized to patient. 1015 Hand off to [facility] Glenna Bejarano, OT - 02/26/2022 8:44 AM EDT 02/26/22 0843 Evaluation & Treatment Document Type contact Total Minutes, Occupational Therapy 0 Comment, Session Not Performed Chart reviewed. Patient scheduled for OR for skin graft. Will follow up post op. Pretty Leahy RN - 02/26/2022 7:08 AM EDT 31 y.o. M who was admitted to the MICU 01/23/2022 s/p VT arrest in the setting of being found down following fentanyl overdose and developing L forearm and L thigh compartment syndrome (s/p L forearm, Lbuttock, and L thigh fasciotomies) w/ subsequent rhabdomyolysis, renal failure, and hyperkalemia which required CVVH PMHx: HTN, angioedema requiring intubation 04/21, GERD, gastritis, esophagitis, urachal cyst, and polysubstance use (EtOH, cocaine, heroin) - A&Ox4, +flat affect. Cooperative with care - Afebrile, BP 130-170s/100s HR tachy 110s, team aware. Sats WNL on RA - Pain moderately controlled with ATC Tylenol/PRN Oxy Q4 - Abd soft/ND, +BS +FL +BM over night - Voiding large amnts CYU via urinal indep - R TL IJ +BR (red caps for HD), wound VACs @ 125mmhg to LUE/LLE intact. +2-3 edema throughout. +PP - OOB with x2 assist + lift, PT/OT following Plan: NPO since MN, OR for skin graft Rama Dean RN - 02/25/2022 7:42 PM EDT VSS on RA. A&O x4. Pain moderately controlled w/scheduled and PRN medications. Patient tolerating PO intake well. BM x2, fecal incontinence. Voiding adequate amounts in urinal. Patient worked w/[employer] and stood at bedside. Lift used to move patient to chair this afternoon and back to bed. BIT visited patient today. Retacrit administered per orders. Changed IJ dressing. NPO at midnight for OR skin graft planned for tomorrow. Jareth Nino MD - 02/25/2022 2:19 PM EDT PATIENT: Alix Holland : 1990 Renal Follow-up Interval history: Patient continues to have wound VAC changes several times a week. No acute events past 24 hours. Assessment/Plan: #ALTHEA: Creatinine continues to downtrend 2.94 mg/dL. Urine output 2 L. Suspected pigment injury/rhabdomyolysis which appears to be resolving. Metabolic and volume parameters reviewed with no apparent indication for urgent PRESS PULLER. Access: Can remove dialysis catheter. We are closed with a question of PICC placement and given patient's likely proclivity to CKD renal would favor maintaining central access versus a PICC. If PICC isonly option would utilize vessel with caliber less than 2 mm Plan: Continue to target even fluid balance. Patient will likely need to establish with CKD clinic in outpatient setting. #Hemodynamics Blood Pressure trend: Systolics in the 140s. Believe in the setting some element of permissive hypertension may help ongoing perfusion of the kidney. Antihypertensives: Amlodipine 10mg. Would continue to hold diuresis/RAAS inhibition for now until weestablish where kidney function level off. Volume Status: No concerns of significant volume overload at this point in time. #Hemoglobin HGB 7.5 g/dL. Most recent iron studies are acceptable. Likely ongoing component of acute loss duringfrequent operations. We will continue weekly EPO a with a plan to repeat iron stores in the next week. #Acid/Base status Bicarb 23 mmol/L not consistent with metabolic acidosis #B[facility] Phos is well controlled we will assess parathyroid hormone. Please check Phos 3x weekly Goal:Stage 5 PTH: 150-300 pg/ml Phos 3.5-5.5 Ca 8.5-10.5mg/dl MEDICATIONS: ??? amLODIPine 10 mg Oral Daily ??? heparin (porcine) 5,000 Units Subcutaneous 2 times per day ??? dronabinoL 10 mg Oral BID ??? ascorbic acid (Vitamin C) 250 mg Oral Daily ??? miconazole nitrate Topical (Top) BID ??? vitamin B Complex-vitamin C-folic Acid 1 tablet Oral Daily ??? vancomycin 125 mg Oral BID ??? folic acid 1,000 mcg Oral Daily ??? thiamine 100 mg Oral Daily ??? acetaminophen 1,000 mg Oral Q8H [place] No Known Allergies ROS: Unless otherwise stated in history 10 point review of systems is negative PHYSICAL EXAM: Last value Temperature Temp: 36.8 ??C (98.2 ??F) Heart Rate Heart Rate: (!) 105 Blood Pressure BP: (!) 147/105 Respiratory Rate Resp: 18 SpO2 SpO2: 97 % Appearance - Alert, Comfortable. Skin - No exanthem. HEENT - Sclera white. Mucous membranes moist. Chest:. Lungs clear to ausculatation w/o wheezes/ rhonchi/ crackles. Heart - S1 and S2 clear w/o murmur, gallop, or rub. JVP not elevated. Abd - Soft. + BS. No bruit. Non tender. Ext - . Warm. No cyanosis. Wound vacs in place neuro - No asterixis. STUDIES: Labs: CBC: Recent Labs 02/25/22 0530 02/23/22 0500 02/22/22 0108 WBC 9.5 8.1 8.9 HGB 7.5* 7.0* 7.3* PLATELET 299 300 317 Chemistry: Recent Labs 02/25/22 0530 02/24/22 0545 02/23/22 0500 NA 139 137 137 K 4.2 4.5 4.6 CL 102 102 102 CO2 BUN 65* 61* 59* CREATININE 2.94* 2.96* 3.90* GLUCOSE 104 102 113 Recent Labs 02/25/22 0530 02/24/22 0545 02/23/22 0500 02/22/22 0108 CALCIUM 8.4* 8.3* 8.3* 8.2* MAGNESIUM 0.81 -- 0.93 0.90 PHOS 4.9* -- 6.2* 5.9* LFT's: Recent Labs 02/21/22 0338 02/12/22 0030 02/05/22 2154 02/04/22 0421 01/28/22 0018 01/27/22 0125 BILITOT -- -- 0.4 -- 0.4 0.9 BILIDIR -- -- 0.3 -- 0.3 0.8* ALBUMIN 2.3* 1.3* 1.4* < > 2.0* 2.1* ALKPHOS -- -- 74 -- 88 82 ALT -- -- <5 -- 237* 418* AST -- -- 21 -- 418* 618* < > = values in this interval not displayed. Jareth Nino MD, MPH Section of Nephrology #[id number] Jaswinder Chung [employer] - 02/25/2022 12:05 PM EDT Physical Therapy Note Treatment Number PT: 3 Patient profile: Alix Holland is a 31 y.o.??gentleman admitted to the MICU on 01/23/22 after being found down and encephalopathic by family with verbal reports of Fentanyl ingestion; this was followedby witnessed in-hospital VT cardiac arrest at the receiving ED (hyperkalemia at the time). He was also noted to have severe rhabdomyolysis with compartment syndrome and resultant ALTHEA. Now s/p??fasciotomies of L thigh, calf forearm and wrist (01/23) and??I+D LUE LLE (01/26). Previously completed treatment??for aspiration pneumonia versus MSSA CAP. He was also found to have asymptomatic COVID19 infection in admission testing. Scattered punctate infarcts on MR brain and CT COW/carotids from 01/24/22 readas normal.??Neurology believes??MRI findings are related to toxometabolic issues rather than a stroke.??Extubated PM of 01/26/22??and remains on room air. Interval History: serial washout and vac changes in the OR Social History: Home setup: Pt lives with his father in a two level home with a couple [place]. Pt's bedroom and bathroom are on the first floor. The bathroom has a tub shower. Baseline Mobility/Prior level of function: Independent with mobility, ADLs and IADLs, drives, used to work for a [employer] company but is not currently working. Enjoys hunting and fishing. DME: none Precautions/Special Considerations: fall risk; soap and water contact; L UE and L LE NWB; wound vacto L UE and L hip Mobility and Positioning Recommendations: ?? Pt requires a mechanical lift for transfers at this time ?? Please encourage up to chair or bed chair position throughout the day as able. Subjective: I'm feeling a little dizzy while standing Objective: Patient seen for physical therapy and demonstrated the following: ?? Pain: reports pain, medicated prior to therapy ? Vital Signs: HR up to 130's with activity ? Bed Mobility: Supine to Sit: Max A for L LE, cues for R LE, trunk required supervision with HOB elevated Sit to Supine: NT, up in recliner chair Scooting: Supervision for scooting toward the edge of bed ? Upright positioning: Steady seated balance without UE support ? Transfers: Sit to Stand: Min-Mod A x 2, multiple stands, sheet gait belt, and FWW. Pt able to rest L UE on walker while relying on R UE and LE for support, minimal weight bearing on L LE, as pt fatigued pt required Max A x 2 to stand Stand to Sit: Mod A x 2 to control descent Bed to Chair: mechanical lift Performed 4 stands, once upright pt able to stand with Min-A x 2 for balance, holds weight on R LE with cues for weight shifting ? Gait: unable to assess ? Seated Balance: Static: good Dynamic: fair+, able to reach small distances and remain upright ? Standing Balance: Static: Fair with FWW Dynamic / Gait: Poor ? Therex: Heel slides, manually resisted leg extension, straight leg raise, ankle dorsi/plantar flexion, bridging ?? Education: patient has been educated on Bed mobility, Positioning, Safety , Precautions/protocol,Role of therapy and Discharge planning and verbalizes understanding but will benefit from ongoing reinforcement Patient status, treatment, and mobility recommendations discussed with nursing. Pt left supine in bed with call starks within reach, all needs met and family present following visit. Assessment: Pt seen today for physical therapy treatment # 3. Motivated to progress mobility but continues to be limited to standing activity only. Initially requiring Min-Mod A x 2 which increased on each subsequent stand due to decreased strength and poor activity tolerance. Tolerated mechanical lift to the recliner chair and will benefit from being lifted out of bed daily. Pt will benefit from ongoing physical therapy to address the above impairments and facilitate return to PLOF. Discharge Recommendations: Based on the current findings, Anticipated Discharge Disposition (PT): acute rehabilitation facilitywhen medically ready for hospital discharge. Consult Recommendations: No other consults recommended at this time. Equipment needs: TBD, anticipate d/c to rehab Physical Therapy Goals: To be achieved by 02/19/22: ?? 1. Pt. to demonstrate knowledge of safety limitations and precautions and will appropriately requestassistance for functional activities and to mobilize. ONGOING 2. Pt. to demonstrate understanding of appropriate exercises. ONGOING 3. Pt. to perform bed mobility with supervision using bed features or adaptive equipment as needed. ONGOING 4. Pt. to perform sit to stand and stand pivot transfers with min A using a front wheeled walker. ONGOING 5. Pt. to ambulate 25 feet with min A using a front wheeled walker. ONGOING 6. Pt will stand with UE support and min A x2 minutes while participating in functional tasks. ONGOING 7. Pt to propel wheelchair x 50 ft. using R UE/LE with supervision. ONGOING 8. Pt will tolerate progression towards upright with stable vital signs. ONGOING Plan: Therapy Frequency (PT): 2-4 times/wk Time IN / OUT: 11:35-12:05 Total Minutes, Physical Therapy: 30 TE-F x 2 JASWINDER CHUNG PTA 02/25/2022 Pager: [phone] Physical Therapy Inpatient Rehabilitation Department Sixto Medina MD - 02/25/2022 5:31 AM EDT Acute Care Surgery Daily Progress Note Admission Date: 01/23/2022 ID: Alix Holland is a 31 y.o. male with HTN, angioedema requiring intubation 04/21, GERD, gastritis, esophagitis, urachal cyst, and polysubstance use (EtOH, cocaine, heroin) who was admitted to the MICU 01/23/2022 s/p VT arrest in the setting of being found down following fentanyl overdose and developing L forearm and L thigh compartment syndrome (s/p L forearm, L buttock, and L thigh fasciotomies) w/ subsequent rhabdomyolysis, renal failure, and hyperkalemia which required CVVH. He was transitioned to iHD and transferred to floor status 02/02, however he had persistent daily transfusion requirement from ongoing wound vac bleeding and returned to the OR x2 (02/04 and 02/05) for irrigation and debridement of fasciotomy wounds, however no focal source of bleeding was identified. He was transferred to the SICU 02/05 after L thigh wound vac filled with alexsandra blood and hgb dropped to 4.6 despite 6U pRBC. He went to IR for embolization of SGA pseudoaneurysm and to the OR for hematoma washout on 02/06. He returned to the OR for washout and debridement again on 02/08 and 02/09. He was subsequently lateralized to the ACS service and transferred to floor status on 02/10. His hospital course has also been notable for asymptomatic COVID-19 infection, C. 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 Procedures: 01/23: L thigh fasciotomy, L lower leg fasciotomy, L buttock fasciotomy, L forearm fasciotomy 01/26: Debridements and wound vac change 01/29: Debridement of fasciotomies, closure of L lower leg fasciotomy, closure of dorsal forearm fasciotomy, partial closure L thigh fasciotomy 01/31: Debridement and wound vac change 02/02: Debridement and wound vac change 02/04: Debridement and wound vac change 02/05: Debridement and wound vac change, 02/06: IR embolization of SGA pseudoaneurysm 02/06: LLE hematoma evacuation and washout 02/08: washout and debridement LLE, vac change LUE 02/09: washout and debridement LLE with vac placement 02/11: washout and vac change, LLE and LUE 02/13: washout and vac change, LLE and LUE 02/15: washout and vac change, LLE and LUE, possible drainage of L gluteal abscess 02/19: washout and vac change, LLE and LUE 02/22: washout and vac change, LLE and LUE 02/24: washout and vac change, LLE and dressing change, LUE Subjective Interval Events: - S/p LE debridement and UE dressing change - Hgb 7.5 (7.0), WBC 9.5 (8.1), Cr 2.94 (2.96) - 2L UOP yesterday. Na 139, K .4.2, Phos 4.9 - Nephrology following for HD needs - Remains on Vancomycin ( - 03/01) - Feels well this morning without concerns Objective Vitals: Last Value Range last 24 hrs Temperature Temp: 36.9 ??C (98.4 ??F) Temp: [36.6 ??C (97.9 ??F)-36.9 ??C (98.4 ??F)] Heart Rate Heart Rate: (!) 112 Heart Rate: [76-120] Blood Pressure BP: (!) 138/101 BP: (127-157)/(91-107) Respiratory Rate Resp: 16 Resp: [12-19] SpO2 SpO2: 96 % SpO2: [93 %-100 %] O2 Device O2 Device: None (Room air) Intake/Output: 02/24 0701 - 02/25 0700 In: 1130 [P.O.:680; I.V.:450] Out: 1102 [Urine:1100] Physical Exam: GEN: resting comfortably in bed, pleasant, conversant, NAD HEENT: normocephalic, atraumatic CHEST: In no respiratory distress on RA CV: HR 105s, well perfused ABD: soft, nontender, nondistended EXTR: moving spontaneously, LLE lateral thigh fasciotomy wound with wound vac in place, LLE fasciotomy incision c/d/i, LUE with wound vac in place. SKIN: WWP NEURO: AOx3, follows commands Labs: Recent Labs 02/23/22 0500 WBC 8.1 HGB 7.0* HCT 22.4* PLATELET 300 Recent Labs 02/24/22 0545 02/23/22 0500 NA 137 137 K 4.5 4.6 CL 102 102 CO2 22 24 BUN 61* 59* CREATININE 2.96* 3.90* GLUCOSE 102 113 CALCIUM 8.3* 8.3* MAGNESIUM -- 0.93 PHOS -- 6.2* C Diff Screen Date Value Ref Range Status 02/01/2022 Positive (A) Negative Final Comment: PCR Pos C. diff?? Positive (GDH positive, toxin antigen negative, toxin PCR positive) DNA from a toxigenic strain of C. difficile was detected, although the free toxin itself was not detected.?? These results cannot distinguish between colonization and infection. They must be interpreted within the patient???s overall clinical context. Consider other causes for diarrhea or the presence of a non-toxigenic strain. Patient needs to remain on Soap & Water Contact Precautions until discharge or approval by Infection Prevention. Abscess/Wound Aspirate Culture Date Value Ref Range Status 02/19/2022 (A) Final Rare Serratia marcescens Rare Pseudomonas aeruginosa 02/17/2022 (A) Final One colony of Serratia marcescens : Susceptibilities previously reported One colony of Pseudomonas aeruginosa : Susceptibilities previously reported 02/17/2022 (A) Final One colony of Serratia marcescens : Susceptibilities previously reported Anaerobic Culture Date Value Ref Range Status 02/19/2022 No anaerobic organisms isolated Final 02/17/2022 No anaerobic organisms isolated Final 02/17/2022 No anaerobic organisms isolated Final Tissue Culture Date Value Ref Range Status 02/09/2022 (A) Final Few Pseudomonas aeruginosa Few Serratia marcescens Susceptibilities previously reported Blood Culture Date Value Ref Range Status 02/06/2022 No growth at 5 days. Final 02/05/2022 No growth at 5 days. Final 02/01/2022 No growth at 5 days. Final Studies: No recent imaging Assessment and Plan Alix Holland is a 31 y.o. male with HTN, angioedema requiring intubation 04/21, GERD, gastritis, esophagitis, urachal cyst, and polysubstance use (EtOH, cocaine, heroin) who was admitted 01/23/2022 forcompartment syndrome and rhabdomyalysis after being found down. He is now s/p multiple fasciotomies and debridements of LLE and L forearm. Mr. Holland has had a prolonged, complicated hospital course which has been significant for renal replacement therapy secondary to rhabdomyolysis, ICU admissions, multiple debridements, and persistent transfusion requirement. He was transferred to the floor 02/10 and appears to be slowly progressing towards recovery. His wound cultures grew Pseudomonas and Serratia for which he has been covered with by Zosyn. ID consulted 02/11 and Zosyn discontinued and transitioned to cefepime. He also has C. difficile for which he is being treated with p.o. vancomycin which will continue for 10 days following discontinuation of c efepime. His leukocytosis has improved. ID was again consulted on 02/22 for cefepime-resistant pseudomonas. Despite the resistence, Mr. Holland has been afebrile and without a leukocytosis so the decision was made to stop cefepime and flagyl. Remains on vancomycin until 03/01/22. Nephrology is following for Mr. Holland for rhabdomyolysis and renal failure. His last dialysis was 02/18/22. Cr continues to improve. Nephrology is following. Recommend IV iron when free of infection. Nephrology will see him again to determine if dialysis is needed. If not, dialysis catheter can be removed, and will give EPO. Following daily BMPs to monitor electrolytes. Plan: Neuro: #Pain - Scheduled PO Tylenol - PO Oxycodone PRN Q4 #Polysubstance abuse, found down following fentanyl ingestion, Toxic metabolic encephalopathy, bilateral globus pallidum infarcts - Thiamine, folate supplementation - Q shift neurovascular checks - Neurology consulted 01/23, re-consulted 02/16, no changes to plan --- Expected BG evolution on MRI. No further w/u --- Re-consult neuro closer to d/c for EMG/NCS testing for peripheral neuropathy CV: - Persistent tachycardia, likely d/t increased metabolic demand from wounds and infections - Amlodipine 10mg daily Resp: - Encourage IS, OOB GI: - Senna-docusate BID - Marinol 10mg BID FEN: F: PO ad minoo E: BMP daily N: NPO for OR 02/24. - Nutrition team consulted, appreciate recs Renal/: - Nephrology following --- iHD schedule per nephrology - F/U ferritin level - Per nephrology, Start IV iron when free of infection, EPO 10,000 qweekly - Daily weights Heme: - DVT ppx per below - Transfuse for Hgb < 7 ID: - 02/08 and 02/09 wound cx: Pseudomonas, serratia - ID consulted 02/11, 02/17, re-consulted 02/22 appreciate recs - D/c Cefepime (02/11 - 02/22) - can d/c due to antibiotic resistance - Cont PO Vanc BID for c diff (02/01- ) until 8/1/22 - D/C IV flagyl q8h for c diff (02/16 - 02/22) --- PO vanc to continue x10 days after Cefepime ends - s/p Unasyn (01/23-01/26 and 01/29-02/01), Cefazolin (01/26-01/29 and 02/01-02/07), Zosyn (02/08-02/11) - 02/15 L Thigh wound culture: Pseudomonas, Serratia, Gram positive cocci Endo: - No active interventions, CTM MSK: - s/p multiple fasciotomies - s/p multiple OR debridements and wound vac changes - Plastics consulted 02/04, okay for primary team to close wounds - Ortho consulted 02/17, signed off, weight bearing status to be determined by primary team Prophy: Resp: OOB, IS DVT: SQH TID, IPCs, OOB Lines/Drains/Tubes/Airways: - R IJ triple lumen HD catheter - Rectal tube removal Dispo: - Floor status - PT/OT consulted 01/27, appreciate recs Code Status: Attempt Cardiopulmonary Resuscitation - Inpatient Vidhya Peñaloza MD - 02/24/2022 7:08 PM EDT NEPHROLOGY PROGRESS NOTE PATIENT: Alix Holland : 1990 Interval History: Patient seen and examined at the bedside. He has made good urine. I/O last 3 completed shifts: In: 1130 [P.O.:680; I.V.:450] Out: 4052 [Urine:4050; Blood:2] No intake/output data recorded. His creatinine has trended down to 2.96. Patient is not in respiratory distress. Not requiring Oxygen. He is lying flat on the bed. Hemodynamically stable. Assessment and Plan: A 31 year old gentleman initially admitted for cardiac arrest sec to V tach secto hyperkalemia sec to rhabdomyolysis, s/b shock/MOSF/compartment syndrome s/p Left forearm, left leg and left thigh fasciotomies is seen and examined. - Patient's last HD was on 02/18/2022. - He has remained stable per respiratory status and metabolically. - His creatinine has started plateuing. - We will re-evaluate him tomorrow for any need of HD. - In case the patient does not have any indication of HD over next 24 hours, we can plan to take histemporary dialysis catheter out. - Patient is severly anemic with hemoglobin 7.0 g/dl. Last TSAT was on 02/02/2022 which was 28%. We can repeat it in first week of March around 03/05/2022. Patient can receive EPO 10,000 units qweek at this time. Although EPO does not have proven efficacy in [place]; however can consider its use in the patient with anemia and recently on HD. - Sodium, potassium, chloride, calcium are within the normal limits. - Hyperphosphatemia - Phosphorus is 6.2 mg/dl. Low phosphorus diet is strictly recommended. In the recent past, it is seen that patient's family brings snacks for the patient. They have been educated about phosphorus and advised to tell the RN what they would be giving to the patient. - HTN - 154/106 mmHg. Low sodium diet. Optimize pain control. Patient is on Amlodipine 10 mg daily. Will follow. PHYSICAL EXAM: Last value Temperature Temp: 36.8 ??C (98.2 ??F) Heart Rate Heart Rate: (!) 120 Blood Pressure BP: (!) 156/106 Respiratory Rate Resp: 17 SpO2 SpO2: 95 % General - AAOx4. In good spirits. HEENT - Atraumatic. Normocephalic. Neck - No JVD Respiratory - B/L air entry decreased. Cardiovascular - S1S2N. Abdomen - No edema. Extremities - Left arm, left thigh wound vac present. Trace edema. Psychiatric - No agitation. Neurological - No FND Current Facility-Administered Medications Medication Dose Route Frequency Provider Last Rate Last Admin ??? amLODIPine (Norvasc) tablet 10 mg 10 mg Oral Daily Nancy Chahal MD 10 mg at 02/24/22 0917 ??? heparin (porcine) (1,000 units/mL) injection 1,000-10,000 Units 1,000-10,000 Units IntercatheterOnce in dialysis PRN aKitlyn Rock MD ??? heparin (porcine) (5,000 units/1 mL) subcutaneous injection 5,000 Units 5,000 Units Subcutaneous2 times per day Gina Montaño MD 5,000 Units at 02/24/22 0920 ??? heparin (porcine) (1,000 units/mL) injection 1,000-10,000 Units 1,000-10,000 Units IntercatheterOnce in dialysis PRN Kaitlyn Rock MD ??? oxyCODONE (Roxicodone) tablet 15 mg 15 mg Oral Q4H PRN Elaine Dos Santos MD 15 mg at 02/24/225 Or ??? oxyCODONE (Roxicodone) tablet 10 mg 10 mg Oral Q4H PRN Elaine Dos Santos MD ??? heparin (porcine) (1,000 units/mL) injection 1,000-10,000 Units 1,000-10,000 Units IntercatheterOnce in dialysis PRN Kaitlyn Rock MD ??? dronabinoL (Marinol) capsule 10 mg 10 mg Oral BID Kaitlyn Rock MD 10 mg at 02/24/22 0916 ??? ascorbic acid (Vitamin C) (Vitamin C) tablet 250 mg 250 mg Oral Daily Kaitlyn Rock MD 250 mg at 02/24/22 0914 ??? miconazole nitrate (Remedy Phytoplex) 2 % ointment Topical (Top) BID Kaitlyn Rock MD Given at 02/24/22 0900 ??? vitamin B Complex-vitamin C-folic Acid (Eileen-scott) 0.8 mg per tablet 1 tablet 1 tablet Oral Daily Kaitlyn Rock MD 1 tablet at 02/24/22 0913 ??? vancomycin (Vancocin) capsule 125 mg 125 mg Oral BID Nancy Chahal MD 125 mg at 02/24/22 0914 ??? lactulose (Chronulac) (0.67 gram/mL) oral liquid 20 g 20 g Oral BID PRN Kaitlyn Rock MD ??? alteplase (Cathflo) injection 1-4 mg 1-4 mL INTRA-CATHETER Once in dialysis PRN Kaitlyn Rock MD 2.4 mg at 02/07/22 0520 ??? folic acid (Folvite) tablet 1,000 mcg 1,000 mcg Oral Daily Kaitlyn Rock MD 1,000 mcg at 07/27/22 0914 ??? thiamine (Vitamin B1) tablet 100 mg 100 mg Oral Daily Kaitlyn Rock MD 100 mg at 02/24/22913 ??? acetaminophen (Tylenol) tablet 1,000 mg 1,000 mg Oral Q8H Elaine Yusuf MD 1,000 mg at02/24/22 1408 Recent Results (from the past 18 hour(s)) Basic Metabolic Panel (non-fasting) Collection Time: 02/24/22 5:45 AM Result Value Ref Range Glucose Lvl 102 65 - 199 mg/dL BUN 61 (H) 10 - 20 mg/dL Creatinine 2.96 (H) 0.80 - 1.50 mg/dL Sodium 137 135 - 145 mmol/L Potassium 4.5 3.5 - 5.0 mmol/L Chloride 102 98 - 107 mmol/L CO2 22 22 - 31 mmol/L Anion Gap 13 5 - 15 mmol/L Calcium 8.3 (L) 8.5 - 10.5 mg/dL Estimated GFR 28 (L) >=60 mL/min/1.73 m?? Vidhya Peñaloza #[id number] Associated attestation - Jareth Nino MD - 02/24/2022 8:52 PM EDT I discussed patient with fellow and primary service unfortunately he was off the floor in the operating room upon her rounds. He continues to show evidence of renal recovery with downtrending creatinine and robust urine output. If he demonstrates similar trend tomorrow believe that we can remove dialysis catheter. We still have to watch closely for evidence of dehydration as resolving kidney injury can lead to concentration deficits in the urine (as evidenced by rising serum sodium) patient needs tocontinue to restrict other electrolytes such as potassium is diet is much as possible. We are very en couraged by his trend Nancy Chahal MD - 02/24/2022 4:27 PM EDT Post-Operative Check Alix Holland is a 31 y.o. male s/p Procedure(s): DRESSING CHANGE (FOR OTHER THAN GALLOWAY) UNDER ANES., UPPER EXTREMITY (WRVU 0.86) DEBRIDEMENT SKIN, SUBCU, MUSCLE, LOWER EXTREMITY (WRVU 2.7) S: No nausea/vomiting, chest pain, SOB, pain well controlled, offers no complaints. Family in room O: Temp: [36.6 ??C (97.9 ??F)-36.9 ??C (98.4 ??F)] Heart Rate: [76-120] Resp: [12-19] BP: (127-157)/(91-107) SpO2: [93 %-100 %] Heart Rate from SpO2: -- I/O last 3 completed shifts: In: 1200 [P.O.:1200] Out: 6450 [Urine:6050; Other:400] I/O this shift: In: 510 [P.O.:60; I.V.:450] Out: 2 [Blood:2] Recent Results (from the past 24 hour(s)) Basic Metabolic Panel (non-fasting) Result Value Ref Range Glucose Lvl 102 65 - 199 mg/dL BUN 61 (H) 10 - 20 mg/dL Creatinine 2.96 (H) 0.80 - 1.50 mg/dL Sodium 137 135 - 145 mmol/L Potassium 4.5 3.5 - 5.0 mmol/L Chloride 102 98 - 107 mmol/L CO2 22 22 - 31 mmol/L Anion Gap 13 5 - 15 mmol/L Calcium 8.3 (L) 8.5 - 10.5 mg/dL Estimated GFR 28 (L) >=60 mL/min/1.73 m?? Physical Exam Gen: A0x3, NAD, resting comfortably CVS: Regular rate and rhythm Resp: B breathing comfortably on RA Abd: soft, non-tender, nondistended Ext:: LLE wound with dressing in place,??non tender,??L thigh wound with wound vac in place holding suction, tender to palpation with most superior edge now closed with sutures,??L forearm wound with wound vac in place holding suction, non tender. Incision: dressing c/d/i. No evidence of hematoma/seroma/infection ?? AP Alix Holland is a 31 y.o. male s/p wound vac change currently in stable condition and recovering well - Regular diet - Pain well controlled - Hemodynamically stable, UOP adequate - Continue post operative plan per primary team Nancy Chahal MD 02/24/2022 4:29PM Natalia Fong I, OT - 02/24/2022 2:20 PM EDT Occupational Therapy Treatment Note Treatment Number OT: 4 Patient Dx: Per note: Alix Holland is a 31 y.o. male with HTN, angioedema requiring intubation 04/21, GERD, gastritis, esophagitis, urachal cyst, and polysubstance use (EtOH, cocaine, heroin) who was admitted to the MICU 01/23/2022 s/p [place] arrest in the setting of being found down following fentanyloverdose and developing L forearm and L thigh compartment syndrome (s/p L forearm, L buttock, and L thigh fasciotomies) w/ subsequent rhabdomyolysis, renal failure, and hyperkalemia which required CVVH. ?? He was transitioned to iHD and transferred to floor status 02/02, however he had persistent daily transfusion requirement from ongoing wound vac bleeding and returned to the OR x2 (02/04 and 02/05) for irrigation and debridement of fasciotomy wounds, however no focal source of bleeding was identified. 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 He returned to the OR for washout and debridement again on 02/08 and 02/09. He was subsequently lateralized to the ACS service and transferred to floor status on 02/10. ?? His hospital course has also been notable for asymptomatic COVID-19 infection, C. 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 Procedures: 01/23: L thigh fasciotomy, L lower leg fasciotomy, L buttock fasciotomy, L forearm fasciotomy 01/26: Debridements and wound vac change 01/29: Debridement of fasciotomies, closure of L lower leg fasciotomy, closure of dorsal forearm fasciotomy, partial closure L thigh fasciotomy 01/31: Debridement and wound vac change 02/02: Debridement and wound vac change 02/04: Debridement and wound vac change 02/05: Debridement and wound vac change, 02/06:??IR embolization of SGA pseudoaneurysm 02/06:??LLE hematoma evacuation and washout 02/08:??washout and debridement LLE, vac change LUE 02/09:??washout and debridement LLE with vac placement 02/11: washout and vac change, LLE and LUE 02/13: washout and vac change, LLE and LUE 02/15: washout and vac change, LLE and LUE, possible drainage of L gluteal abscess 02/19: washout and vac change, LLE and LUE 02/22: washout and vac change, LLE and LUE ?? Social History: Patient lives in [place], [place] with his dad. Home Setup: 2 [address], 2 level home, bedroom on 1st level, bathroom available on 1st level, has a tub shower downstairs. DME: none Baseline ADL/Mobility: Pt reports he was independent w/ ADL's and IADL's, had worked for a [employer]. He enjoys hunting and fishing. He reports he likes [employer] music ?? Interval History: - No acute events overnight - Daily BMPs. Cr 2.96 (3.90) - NPO overnight for OR today - Remains on Vancomycin ( - 03/01) - Did not undergo HD yesterday, nephrology following for further renal replacement therapy. Recommend limiting potassium and low phosphorus in diet. Calcium carbonate 1000 mg TID. Start IV iron when free of infection, EPO 10,000 qweekly if remains off dialysis. Watching HTN and consideration of second agent/diuretic. - Feels well this morning without concerns Precautions/Special Considerations: SOAP/WATER; fall risk, LUE/LLE WBAT, L forearm wound vac, L thigh wound vac, Femoral A-line S: I have been trying to eat w my L hand. O: Patient seen for skilled OT treatment, and demonstrated the following: ?? Self-care/Functional Mobility: ?? Pt presented in bed eating lunch and agreeable to therapy ?? Supine to sit: mod A w cues for sequencing transfer towards EOB; required assist at LLE and trunkmoving from sidelying to sitting ?? Pt able to doff and don hospital gown w good seated balance and min A due to LUE wound vac ?? Sit to stand: x3; max A x2 FWW; unable to maintain neutral wrist on walker; stood ~1-2 minutes each stand ?? Stand to sit: max A x2 ?? Educated on AAROM on RUE and adaptive utensils for self feeding ?? Sit to supine: mod A at LEs ?? Pt able to utilize RUE and RLE to boost self towards HOB w mod/max A x2 ?? Pt left in bed w all needs met and call starks within reach ?? Cognition: ?? Behavior / Mood: awake, alert, flat affect, agreeable ?? Alert and oriented to: person, date, place, situation ?? Follows commands: 1 step, 100% of the time, requires increased time and requires repetition ?? Attention: WFL ?? Safety awareness: decreased insight into deficits and mild impairment ?? Vitals: ?? HR reached to 155 bpm during activity Pain: 05/10 to LUE/LLE Education: Pt/family/caregiver education ongoing regarding: Role of occupational therapy/rehabilitation, ADL, Exercise, Positioning, Precautions/Protocol, Functional Mobility, Balance, Recommendations and Discharge planning. Staff Communication: Patient status, treatment, and mobility recommendations discussed with nursing/other staff ASSESSMENT: Pt seen for continuation of OT plan of care. Pt continues to progress with self care tasks and functional mobility. Pt is now WBAT LUE and LLE; focus of OT session functional mobility and LUE. Pt tolerated 3 stands w max A x2 w FWW; difficult for pt to maintain neutral wrist on walker when standing. Pt reported he has been trying to self feed w LUE which is challenging for him; gave pt built up utensils for better construction secretary on utensils due to limited LUE strength and ROM. Educated on AAROM onL hand; pt demonstrated and verbalized understanding to maintain neutral wrist/fingers. Continue to recommend a rehab stay to maximize independence in ADLs/IADLs and safety. Anticipated Discharge Disposition (OT): acute rehabilitation facility Equipment Needs Upon Discharge (OT): to be determined Other Recommendations: ?? Utilize upright chair position using bed features or transfer to recliner chair as appropriate with mechanical lift (Once bedrest orders have been lifted) ?? Encourage participation in ADL's by providing set up A on tray table and physical assist only as needed. ?? Monitor ROM of R fingers (encourage active and passive flexion and extension of fingers) ?? General Recommendations for Patients with Confusion: Commode/bathroom for toileting when able to do so safely Utilize upright chair position using bed features or transfer to recliner chair as appropriate. Encourage participation in ADL's by providing set up A on tray table and physical assist only as needed Lights on blinds open during day Goals: To be achieved within 2 weeks, by 02/12/22: 1. Patient will consistently be oriented x 4 and CAM (-). MET 2. Patient will complete grooming tasks seated with setup only. 3. Patient will be min A for UB sponge bath in supported sitting. 4. Patient will sit EOB w/ min A as needed to progress functional transfers (? slideboard vs stand pivot) (Once orders are updated) 5. Patient will be min A for self-feeding as appropriate in supported sitting w/ setup.MET Therapy Frequency (OT): 2-4 times/wk Total Minutes, Occupational Therapy: 32 (1 SC 1 TAF ([id number])) Pager: [phone] Natalia Fong OT Occupational Therapy Rehabilitation Department *POC reviewed between DRIVER EXAMINER/OTR. Patient is now activity as tolerated with BUE/LE WBAT. See updated goals below. Dai Gerald OTR/L Pager [phone] Goals updated & extended to 03/08/22: -Patient will don/doff UB clothing with supervision seated -Patient will don/doff LB clothing with Min A, seated, with AE, as needed -Patient will complete toileting tasks (hygiene, clothing management, transfers) with Min A and withAE, as needed -Patient will ambulate household distances with CGA and with AD, as needed -Patient will complete UB/LB sponge bathing tasks with supervision, while seated with AE, as needed -Patient will complete grooming task (comb hair, brush teeth, shave) with supervision Alyson Tuttle RN - 02/24/2022 12:21 PM EDT 1212: pt arrived to unit, attached to monitors, alarms set. VSS, LS clear on 6L simple mask. JOSE J flushed, incisions WDL, LUE and Lateral L Thigh wound vacc in place. 1230: transitioned to RA. 1245: placed on 2 L NC for spO2 sat of 87%. 1315: phase 2. 1318: report given to Rama NEAL. Sixto Medina MD - 02/24/2022 7:54 AM EDT Acute Care Surgery Daily Progress Note Admission Date: 01/23/2022 ID: Alix Holland is a 31 y.o. male with HTN, angioedema requiring intubation 04/21, GERD, gastritis, esophagitis, urachal cyst, and polysubstance use (EtOH, cocaine, heroin) who was admitted to the MICU 01/23/2022 s/p [place] arrest in the setting of being found down following fentanyl overdose and developing L forearm and L thigh compartment syndrome (s/p L forearm, L buttock, and L thigh fasciotomies) w/ subsequent rhabdomyolysis, renal failure, and hyperkalemia which required CVVH. He was transitioned to iHD and transferred to floor status 02/02, however he had persistent daily transfusion requirement from ongoing wound vac bleeding and returned to the OR x2 (02/04 and 02/05) for irrigation and debridement of fasciotomy wounds, however no focal source of bleeding was identified. He was transferred to the SICU 02/05 after L thigh wound vac filled with alexsandra blood and hgb dropped to 4.6 despite 6U pRBC. He went to IR for embolization of SGA pseudoaneurysm and to the OR for hematoma washout on 02/06. He returned to the OR for washout and debridement again on 02/08 and 02/09. He was subsequently lateralized to the ACS service and transferred to floor status on 02/10. His hospital course has also been notable for asymptomatic COVID-19 infection, C. 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 Procedures: 01/23: L thigh fasciotomy, L lower leg fasciotomy, L buttock fasciotomy, L forearm fasciotomy 01/26: Debridements and wound vac change 01/29: Debridement of fasciotomies, closure of L lower leg fasciotomy, closure of dorsal forearm fasciotomy, partial closure L thigh fasciotomy 01/31: Debridement and wound vac change 02/02: Debridement and wound vac change 02/04: Debridement and wound vac change 02/05: Debridement and wound vac change, 02/06: IR embolization of SGA pseudoaneurysm 02/06: LLE hematoma evacuation and washout 02/08: washout and debridement LLE, vac change LUE 02/09: washout and debridement LLE with vac placement 02/11: washout and vac change, LLE and LUE 02/13: washout and vac change, LLE and LUE 02/15: washout and vac change, LLE and LUE, possible drainage of L gluteal abscess 02/19: washout and vac change, LLE and LUE 02/22: washout and vac change, LLE and LUE Subjective Interval Events: - No acute events overnight - Daily BMPs. Cr 2.96 (3.90) - NPO overnight for OR today - Remains on Vancomycin ( - 03/01) - Did not undergo HD yesterday, nephrology following for further renal replacement therapy. Recommend limiting potassium and low phosphorus in diet. Calcium carbonate 1000 mg TID. Start IV iron when free of infection, EPO 10,000 qweekly if remains off dialysis. Watching HTN and consideration of second agent/diuretic. - Feels well this morning without concerns Objective Vitals: Last Value Range last 24 hrs Temperature Temp: 36.9 ??C (98.4 ??F) Temp: [36.6 ??C (97.9 ??F)-37.1 ??C (98.8 ??F)] Heart Rate Heart Rate: (!) 108 Heart Rate: [104-108] Blood Pressure BP: (!) 144/106 BP: (141-153)/(105-108) Respiratory Rate Resp: 18 Resp: [18-20] SpO2 SpO2: 97 % SpO2: [95 %-99 %] O2 Device O2 Device: None (Room air) Intake/Output: 02/23 0701 - 02/24 0700 In: - Out: 4050 [Urine:4050] Physical Exam: GEN: resting comfortably in bed, pleasant, conversant, NAD HEENT: normocephalic, atraumatic CHEST: In no respiratory distress on RA CV: regular rate, well perfused ABD: soft, nontender, nondistended EXTR: moving spontaneously, edema present in L arm; L thigh wound vac in place, holding suction; L forearm wound vac in place, holding suction SKIN: WWP NEURO: AOx3, follows commands Labs: Recent Labs 02/23/22 0500 02/22/22 0108 WBC 8.1 8.9 HGB 7.0* 7.3* HCT 22.4* 22.7* PLATELET 300 317 Recent Labs 02/24/22 0545 02/23/22 0500 02/22/22 0108 NA 137 137 137 K 4.5 4.6 5.1* CL 102 102 101 CO2 22 24 23 BUN 61* 59* 55* CREATININE 2.96* 3.90* 3.91* GLUCOSE 102 113 95 CALCIUM 8.3* 8.3* 8.2* MAGNESIUM -- 0.93 0.90 PHOS -- 6.2* 5.9* C Diff Screen Date Value Ref Range Status 02/01/2022 Positive (A) Negative Final Comment: PCR Pos C. diff?? Positive (GDH positive, toxin antigen negative, toxin PCR positive) DNA from a toxigenic strain of C. difficile was detected, although the free toxin itself was not detected.?? These results cannot distinguish between colonization and infection. They must be interpreted within the patient???s overall clinical context. Consider other causes for diarrhea or the presence of a non-toxigenic strain. Patient needs to remain on Soap & Water Contact Precautions until discharge or approval by Infection Prevention. Abscess/Wound Aspirate Culture Date Value Ref Range Status 02/19/2022 (A) Final Rare Serratia marcescens Rare Pseudomonas aeruginosa 02/17/2022 (A) Final One colony of Serratia marcescens : Susceptibilities previously reported One colony of Pseudomonas aeruginosa : Susceptibilities previously reported 02/17/2022 (A) Final One colony of Serratia marcescens : Susceptibilities previously reported Anaerobic Culture Date Value Ref Range Status 02/19/2022 No anaerobic organisms isolated Final 02/17/2022 No anaerobic organisms isolated Final 02/17/2022 No anaerobic organisms isolated Final Tissue Culture Date Value Ref Range Status 02/09/2022 (A) Final Few Pseudomonas aeruginosa Few Serratia marcescens Susceptibilities previously reported Blood Culture Date Value Ref Range Status 02/06/2022 No growth at 5 days. Final 02/05/2022 No growth at 5 days. Final 02/01/2022 No growth at 5 days. Final Studies: No recent imaging Assessment and Plan Alix Holland is a 31 y.o. male with HTN, angioedema requiring intubation 04/21, GERD, gastritis, esophagitis, urachal cyst, and polysubstance use (EtOH, cocaine, heroin) who was admitted 01/23/2022 forcompartment syndrome and rhabdomyalysis after being found down. He is now s/p multiple fasciotomies and debridements of LLE and L forearm. Mr. Holland has had a prolonged, complicated hospital course which has been significant for renal replacement therapy secondary to rhabdomyolysis, ICU admissions, multiple debridements, and persistent transfusion requirement. He was transferred to the floor 02/10 and appears to be slowly progressing towards recovery. His wound cultures are growing Pseudomonas and Serratia for which he has been covered with by Zosyn.ID consulted 02/11 and Zosyn discontinued and transitioned to cefepime. He also has C. difficile for which he is being treated with p.o. vancomycin which will continue for 10 days following discontinuation of cefepime. His leukocytosis has improved. ID was again consulted on 02/22 for cefepime-resistantpseudomonas. Despite the resistence, Mr. Holland has been afebrile and without a leukocytosis so thedecision was made to stop cefepime and flagyl. Remains on vancomycin until 03/01/22. Nephrology is following for Mr. Holland for rhabdomyolysis and renal failure. He did not undergo dialysis yesterday. Cr continues to improve. Nephrology is following. Recommend calcium carbonate 1000 mg TID, IV iron when free of infection, EPO 10,000 qweekly. Daily BMPs are recommended to follow electrolytes closely with his increased UOP. He will return to the OR today for lower extremity debridement and upper extremity dressing change. Plan: Neuro: #Pain - Scheduled PO Tylenol - PO Oxycodone PRN Q4 #Polysubstance abuse, found down following fentanyl ingestion, Toxic metabolic encephalopathy, bilateral globus pallidum infarcts - Thiamine, folate supplementation - Q shift neurovascular checks - Neurology consulted 01/23, re-consulted 02/16, no changes to plan --- Expected BG evolution on MRI. No further w/u --- Re-consult neuro closer to d/c for EMG/NCS testing for peripheral neuropathy CV: - Persistent tachycardia, likely d/t increased metabolic demand from wounds and infections - Amlodipine 10mg daily Resp: - Encourage IS, OOB GI: - Senna-docusate BID - Marinol 10mg BID FEN: F: PO ad minoo E: BMP daily N: NPO diet (Give Meds) for OR 02/24. - Nutrition team consulted, appreciate recs Renal/: - Nephrology following --- iHD schedule per nephrology - F/U ferritin level - Per nephrology, Calcium carbonate 1000 mg TID. Start IV iron when free of infection, EPO 10,000 qweekly Heme: - DVT ppx per below - Transfuse for Hgb < 7 ID: - 02/08 and 02/09 wound cx: Pseudomonas, serratia - ID consulted 02/11, 02/17, re-consulted 02/22 appreciate recs - D/c Cefepime (02/11 - 02/22) - can d/c due to antibiotic resistance - Cont PO Vanc BID for c diff (02/01- ) until 03/01/22 - D/C IV flagyl q8h for c diff (02/16 - 02/22) --- PO vanc to continue x10 days after Cefepime ends - s/p Unasyn (01/23-01/26 and 01/29-02/01), Cefazolin (01/26-01/29 and 02/01-02/07), Zosyn (02/08-02/11) - 02/15 L Thigh wound culture: Pseudomonas, Serratia, Gram positive cocci Endo: - No active interventions, CTM MSK: - s/p multiple fasciotomies - s/p multiple OR debridements and wound vac changes - Plastics consulted 02/04, okay for primary team to close wounds - Ortho consulted 02/17, signed off, weight bearing status to be determined by primary team Prophy: Resp: OOB, IS DVT: SQH TID, IPCs, OOB Lines/Drains/Tubes/Airways: - R IJ triple lumen HD catheter - Rectal tube removal Dispo: - Floor status - PT/OT consulted 01/27, appreciate recs Code Status: Attempt Cardiopulmonary Resuscitation - Inpatient Vidhya Peñaloza MD - 02/23/2022 5:32 PM EDT Images from the original note were not included. NEPHROLOGY PROGRESS NOTE PATIENT: Alix Holland : 1990 Interval History: Patient seen and examined at the bedside. No acute event. He has been making good urine. I/O last 3 completed shifts: In: 1900 [P.O.:1650; I.V.:250] Out: 6456 [Urine:6050; Other:400; Blood:6] I/O this shift: In: - Out: 1900 [Urine:1900] Though increased urinary output could be concerning for post-ATN diuresis, would monitor for now. Please continue to do a daily BMP to review the sodium. Patients tend to go into hypernatremia in post-ATN diuresis. Patient's dialysis was held today given that his urine output has increased and his creatinine has plateaued. He is not in respiratory distress. Not on Oxygen or pulmonary edema. His last HD was on Tuesday - 02/18/2022 Creatinine trend in the last 10 days is as follows: Assessment and Plan: A 31 year old male with PMHx IV drug use, V tach cardiac arrest sec to hyperkalemia sec to rhabdomyolysis, in shock, c/b compartment syndrome s/p left forearm, left thigh and left leg fasciotomies, was in anuric renal failure and required CVVH earlier in the admission, complicatedwith COVID- 19 in January 2022 and C diff diarrhea seen and examined. Patient has been off iHD since 02/18/2022. However the plan is to review the patient on a daily basis and decide accordingly. #ALTHEA - Resolving. Patient has no prior hx renal disease. He has required CVVH and iHD in this admission complicated with compartment syndrome and fasciotomies. The plan is to evaluate him on a daily basis. #Anemia: Patient should benefit from IV iron. However he needs to be free of infection for that. If the patient remains off dialysis, he should be getting EPO 10,000 units qweek. #Hyperphosphatemia: Low phosphorus diet. Calcium carbonate 1000 mg TID should act as phosphate binder. #Hypoalbuminemia: His albumin has improved since last 2 weeks. It is 2.3 g/dL now. Nutrition is optimized. #Hemodynamics: Has episodes of hypertension with SBP in 140s to 150s. He is on Amlodipine 10 mg daily for now. Low sodium diet. Will re-evaluate and may add a second agent. A diuretic may likely help patient's edema and hypertension but this will be discussed. PHYSICAL EXAM: Last value Temperature Temp: 36.6 ??C (97.9 ??F) Heart Rate Heart Rate: (!) 126 Blood Pressure BP: (!) 141/106 Respiratory Rate Resp: 18 SpO2 SpO2: 95 % General - AAOx4. No acute distress. HEENT - Atraumatic. Normocephalic. Neck - No JVD Respiratory - B/L CTA Cardiovascular - S1S2N. No murmur. Abdomen - Abdominal wall edema is present. Extremities - Left arm edema present. Left thigh, left leg edema present. Wound vac present. Psychiatric - No agitation. Neurological - No new FND Current Facility-Administered Medications Medication Dose Route Frequency Provider Last Rate Last Admin ??? amLODIPine (Norvasc) tablet 10 mg 10 mg Oral Daily Nancy Chahal MD 10 mg at 02/23/22 0937 ??? heparin (porcine) (1,000 units/mL) injection 1,000-10,000 Units 1,000-10,000 Units IntercatheterOnce in dialysis PRN Kaitlyn Rock MD ??? heparin (porcine) (5,000 units/1 mL) subcutaneous injection 5,000 Units 5,000 Units Subcutaneous2 times per day Gina Montaño MD 5,000 Units at 02/23/22 0935 ??? heparin (porcine) (1,000 units/mL) injection 1,000-10,000 Units 1,000-10,000 Units IntercatheterOnce in dialysis PRN Kaitlyn Rock MD ??? oxyCODONE (Roxicodone) tablet 15 mg 15 mg Oral Q4H PRN Kaitlyn Rock MD 15 mg at 02/23/22 1405 Or ??? oxyCODONE (Roxicodone) tablet 10 mg 10 mg Oral Q4H PRN Kaitlyn Rock MD ??? heparin (porcine) (1,000 units/mL) injection 1,000-10,000 Units 1,000-10,000 Units IntercatheterOnce in dialysis PRN Kaitlyn Rock MD ??? dronabinoL (Marinol) capsule 10 mg 10 mg Oral BID Kaitlyn Rock MD 10 mg at 02/23/2232 ??? ascorbic acid (Vitamin C) (Vitamin C) tablet 250 mg 250 mg Oral Daily Kaitlyn Rock MD 250 mg at 02/23/2235 ??? miconazole nitrate (Remedy Phytoplex) 2 % ointment Topical (Top) BID Kaitlyn Rock MD Given at 02/23/22 0900 ??? vitamin B Complex-vitamin C-folic Acid (Eileen-scott) 0.8 mg per tablet 1 tablet 1 tablet Oral Daily Kaitlyn Rock MD 1 tablet at 02/23/2235 ??? vancomycin (Vancocin) capsule 125 mg 125 mg Oral BID Nancy Chahal MD 125 mg at 02/23/2232 ??? lactulose (Chronulac) (0.67 gram/mL) oral liquid 20 g 20 g Oral BID PRN Kaitlyn Rock MD ??? alteplase (Cathflo) injection 1-4 mg 1-4 mL INTRA-CATHETER Once in dialysis PRN Kaitlyn Rock MD 2.4 mg at 02/07/22 0520 ??? folic acid (Folvite) tablet 1,000 mcg 1,000 mcg Oral Daily Kaitlyn Rock MD 1,000 mcg at 02/23/2232 ??? thiamine (Vitamin B1) tablet 100 mg 100 mg Oral Daily Kaitlyn Rock MD 100 mg at 02/23/2232 ??? acetaminophen (Tylenol) tablet 1,000 mg 1,000 mg Oral Q8H AMERICA Kaityln Rock MD 1,000 mg at 02/23/22 1404 Recent Results (from the past 18 hour(s)) Magnesium Collection Time: 02/23/22 5:00 AM Result Value Ref Range Magnesium 0.93 0.69 - 1.07 mmol/L Phosphorus Collection Time: 02/23/22 5:00 AM Result Value Ref Range Phosphorus 6.2 (H) 2.5 - 4.5 mg/dL Basic Metabolic Panel (non-fasting) Collection Time: 02/23/22 5:00 AM Result Value Ref Range Glucose Lvl 113 65 - 199 mg/dL BUN 59 (H) 10 - 20 mg/dL Creatinine 3.90 (H) 0.80 - 1.50 mg/dL Sodium 137 135 - 145 mmol/L Potassium 4.6 3.5 - 5.0 mmol/L Chloride 102 98 - 107 mmol/L CO2 24 22 - 31 mmol/L Anion Gap 11 5 - 15 mmol/L Calcium 8.3 (L) 8.5 - 10.5 mg/dL Estimated GFR 20 (L) >=60 mL/min/1.73 m?? Hemogram Collection Time: 02/23/22 5:00 AM Result Value Ref Range WBC 8.1 4.0 - 9.5 x10(3)/mcL RBC 2.50 (L) 4.58 - 5.54 x10(6)/mcL Hemoglobin 7.0 (L) 13.7 - 16.5 g/dL Hematocrit 22.4 (L) 40.5 - 48.5 % MCV 89.6 82.9 - 93.1 fL MCH 28.0 27.5 - 32.1 pg MCHC 31.3 (L) 32.0 - 35.7 g/dL Platelets 300 145 - 357 x10(3)/mcL RDWSD 57.0 (H) 36.0 - 45.0 fL RDWCV 17.5 (H) 11.4 - 13.8 % MPV 8.4 7.6 - 12.9 fL nRBC % Auto 0.0 % nRBC Abs Auto 0.000 0.000 - 0.000 x10(3)/mcL Differential, Automated Collection Time: 02/23/22 5:00 AM Result Value Ref Range Neutrophils % 69.0 % Neutr Abs (ANC) 5.59 1.70 - 6.10 x10(3)/mcL Lymphocytes % 12.8 % Lymphocytes Abs 1.0 0.9 - 3.2 x10(3)/mcL Monocytes % 10.0 % Monocyte Abs 0.8 0.3 - 0.9 x10(3)/mcL Eosinophils % 2.6 % Eosinophils Abs 0.2 0.0 - 0.4 x10(3)/mcL Basophils % 0.7 % Basophils Abs 0.1 0.0 - 0.1 x10(3)/mcL Immature Gran % 4.90 % Gemini Gran Abs 0.40 (H) 0.00 - 0.04 x10(3)/mcL Associated attestation - Jareth Nino MD - 02/23/2022 6:49 PM EDT I saw and discussed the patient with the fellow and I agree with the assessment and plan in her note. 31-year-old male with prolonged hospitalization following compartment syndrome and rhabdomyolysis. We are encouraged that his creatinine has appeared to plateau in the absence of dialysis (last treatment last Tuesday) urine output remains acceptable. We have to be continue to be careful with his electrolyte balances and his potassium should be restricted in diet. Otherwise with any luck creatinine will begin downtrending in the coming days. We will continue to evaluate on a day by day basis whether he needs further renal replacement therapy. Charlotte Castañeda, LISA - 02/23/2022 2:39 PM EDT Nutrition Progress Note Alix Holland is a 31 y.o. male ??with history of polysubstance abuse currently admitted for fentanyl OD with LUE and LLE compartment syndrome s/p L forearm, L thigh/buttock and L lower leg fasciotomies, rhabdomyolysis, ARF and hyperkalemic [place] arrest (on CVVH) with recurrent L thigh fasciotomy wound b leeding and hemorrhagic shock now 3 days s/p IR embolization of L circumflex iliac artery, Left internal iliac gluteal arterial branches, and left superior gluteal artery via R CUT [employer] [employer] access. Reason for intervention: Follow up Nutrition Recommendations: Continue regular diet Please try to limit NPO status Pt with high protein needs- will encourage double portion of protein rich items Milk w/ meals encouraged Family at bedside agreea to help w/ menu selections in an effort to maximize protein intake Monitor weights - last weighed on 02/09, please gather new weight. Patient now meets criteria for severe protein calorie malnutrition as outlined below. Active Orders Diet Regular diet Frequency: Effective Now Number of Occurrences: Until Specified Nourishments Adult diet Oral Supplements Other; Ensure Compact Frequency: Effective Now Number of Occurrences: Until Specified Lab Results Component Value Date NA 137 02/23/2022 K 4.6 02/23/2022 CL 102 02/23/2022 CO2 24 02/23/2022 BUN 59 (H) 02/23/2022 CREATININE 3.90 (H) 02/23/2022 ESTGFR 20 (L) 02/23/2022 MAGNESIUM 0.93 02/23/2022 CALCIUM 8.3 (L) 02/23/2022 PHOS 6.2 (H) 02/23/2022 AST 21 02/05/2022 ALT <5 02/05/2022 ALKPHOS 74 02/05/2022 BILITOT 0.4 02/05/2022 BILIDIR 0.3 02/05/2022 TRIG 359 01/26/2022 CRP <3.0 04/26/2021 [id number] 535 02/03/2022 SFOLATE 3.9 (L) 02/03/2022 IRON 41 (L) 02/02/2022 No results found for: POCGLU Skin Status: Shift Pressure Injury Prevention Occiput: No Injury Thoracic Spine: No Injury Sacral: Redness, Blanchable Ischial - left: Existing Injury Ischial - right: No Injury Heel - left: No Injury Heel - right: No Injury Elbow - left: No Injury Elbow - right: No Injury Device Sites: O2 sat monitor, IV sites Other Sites: IJ, W[place] x2 Relevant medications: folic acid, marinol, bowel meds, thiamine, Eileen-scott, Ascorbic acid Last Bowel Movement: 02/23/22 Admit Weight: 101.8 kg Estimated body mass index is 31.18 kg/m?? as calculated from the following: Height as of this encounter: 182.9 cm (6' 0.01). Weight as of this encounter: 104.3 kg (229 lb 15 oz). [place] Body Weight: 80.9kg- [place] Usual Body Weight: See below 3.5% wt loss since admission (2 weeks)- clinically significant 2.7% x 1 week - clinically significant Wt Readings from Last 10 Encounters: 02/09/22 104.3 kg (229 lb 15 oz) 04/28/21 98.1 kg (216 lb 4.3 oz) 02/22/19 108.9 kg (240 lb) 05/03/18 113.4 kg (250 lb) 04/27/13 90.7 kg (200 lb) No data found. Assessment: Based on IBW 80.9kg Estimated needs: Calories: 3203-5868 (25-30kcal/kg) Protein: 120 grams (1.5 g/kg UBW) - pt on iHD w/ wound vacs Nutrition Focused Physical Exam (NFPE): Not performed- pt very sleep and unable to participate but appears to have wasting Nutrition intake and intake history/Interview: 02/23: Pt with less npo time recently, although po intake is ~25% of meals. Pt had 25% of breakfast today (breakfast sandwich, royal, and milk = ~160kcal and 7g protein). Continue to encourage good po and protein intake. No recent weight, please gather new weight. 02/16/22: F/u w/ pt with family at bedside. He is making improved menu selections but is not drinkingsupplements. Reviewed protein needs; family has brought in high protein granola bars and will encourage intake as well as assist w/ menu selections. Pt continues to miss meals for procedures. Low PAB noted; Serum proteins such as albumin and prealbumin are not included as defining characteristics of malnutrition because recent evidence analysis shows that serum levels of these proteins do not change in response to changes in nutrient intake. (Academy of Nutrition and Dietetics) 02/11/22: Pt continue with increased nutrition needs w/ protein losses form iHD & wound vacs and increased needs for healing. Pt ate well at lunch today but has had MANY missed meals for procedures.Pt sleepy but reports he does get hungry. Girl friend at bedside who reports he looks like he has had significant muscle loss. Trial of Nepro unsuccessful. Electrolytes wnl, so please keep on regular diet ( vs renal) and will try Ensure Compact. Vitamin supplementation as above suggested. 02/09/22: Patient is now day 18 with minimal nutrition. Weight loss over the past week is clinically significant and patient now meets severe protein calorie malnutrition criteria. He continues on CRRT and wound vacs, requiring a minimum of 200g protein daily. Team hopeful to advance diet today after OR but it is unlikely that patient will meet nutrition goals via PO intake alone for many days and future OR visits will continue to impede adequate nutrition intake. Recommend TPN as a bridge to meet nutrition needs. Protein-calorie Malnutrition: < or equal to 50% of estimated energy requirement for > or equalto 5 days and >2% weight loss in 1 week is consistent with severe protein-calorie malnutrition inthe setting of acute illness or injury (BUSTER Pickens J Parenteral Enteral Nutr. 2011; 36(3): 273-83) Nutrition to continue to follow up while inpatient Thank you, Charlotte Castañeda RD Pager #:[phone] Jaswinder Chung [employer] - 02/23/2022 11:00 AM EDT Physical Therapy Note Treatment Number PT: 2 Patient profile: Alix Holland is a 31 y.o.??gentleman admitted to the MICU on 01/23/22 after being found down and encephalopathic by family with verbal reports of Fentanyl ingestion; this was followedby witnessed in-hospital [place] cardiac arrest at the receiving ED (hyperkalemia at the time). He was also noted to have severe rhabdomyolysis with compartment syndrome and resultant ALTHEA. Now s/p??fasciotomies of L thigh, calf forearm and wrist (01/23) and??I+D SHAMAR ROBB (01/26). Previously completed treatment??for aspiration pneumonia versus MSSA CAP. He was also found to have asymptomatic COVID19 infection in admission testing. Scattered punctate infarcts on MR brain and CT COW/carotids from 01/24/22 readas normal.??Neurology believes??MRI findings are related to toxometabolic issues rather than a stroke.??Extubated PM of 01/26/22??and remains on room air. Interval History: serial washout and vac changes in the OR Social History: Home setup: Pt lives with his father in a two level home with a couple [place]. Pt's bedroom and bathroom are on the first floor. The bathroom has a tub shower. Baseline Mobility/Prior level of function: Independent with mobility, ADLs and IADLs, drives, used to work for a [employer] company but is not currently working. Enjoys hunting and fishing. DME: none Precautions/Special Considerations: fall risk; soap and water contact; L UE and L LE NWB; wound vacto L UE and L hip Mobility and Positioning Recommendations: ?? Pt requires a mechanical lift for transfers at this time ?? Please encourage up to chair or bed chair position throughout the day as able. Subjective: I'm feeling pretty good while sitting edge of bed Objective: Patient seen for physical therapy and demonstrated the following: ?? Pain: reports pain, medicated prior to therapy ? Vital Signs: HR up to 120's with activity, BP 151/110 in sitting ? Bed Mobility: Supine to Sit: Max A for L LE, cues for R LE, trunk required Mod A hand hold with HOB elevated Sit to Supine: Max A for LE's Scooting: Mod A for initial scooting toward the edge of bed ? Upright positioning: Raised HOB to 50 degrees, then transferred to edge of bed. Pt able to sit edge of bed for ~20 minutes with several stands, good seated balance, able to reach toward LE's and return to upright sitting without LOB ? Transfers: Sit to Stand: Max A x 2, multiple stands, sheet gait belt, and FWW. Pt able to rest L UE on walker while relying on R UE and LE for support, minimal weight bearing on L LE Stand to Sit: Mod A x 2 to control descent Bed to Chair: NT, mechanical lift Performed 4 stands, once upright pt able to stand with Min-A x 2 for balance, holds weight on R LE with cues for weight shifting and attempting to pivot on R LE (unsuccessful) ? Gait: unable to assess ? Seated Balance: Static: good Dynamic: fair+, able to reach small distances and remain upright ? Standing Balance: Static: Fair with FWW Dynamic / Gait: Poor ? Therex: Heel slides, manually resisted leg extension, straight leg raise, ankle dorsi/plantar flexion, bridging ?? Education: patient has been educated on Bed mobility, Positioning, Safety , Precautions/protocol,Role of therapy and Discharge planning and verbalizes understanding but will benefit from ongoing reinforcement Patient status, treatment, and mobility recommendations discussed with nursing. Pt left supine in bed with call starks within reach, all needs met and family present following visit. Assessment: Pt seen today for physical therapy treatment # 2. Able to tolerate sitting and then progressed to standing, required significant assist and therefore continues to require mechanical lift for transfers with nursing. Steady sitting balance and beginning to reach outside base of support, but l imited due to poor AROM of the L hemibody. Encourage out of bed to chair daily and bed in chair position for continued upright tolerance progression. Pt will benefit from ongoing physical therapy to address the above impairments and facilitate return to PLOF. Discharge Recommendations: Based on the current findings, Anticipated Discharge Disposition (PT): acute rehabilitation facilitywhen medically ready for hospital discharge. Consult Recommendations: No other consults recommended at this time. Equipment needs: TBD, anticipate d/c to rehab Physical Therapy Goals: To be achieved by 02/19/22: ?? 1. Pt. to demonstrate knowledge of safety limitations and precautions and will appropriately requestassistance for functional activities and to mobilize. ONGOING 2. Pt. to demonstrate understanding of appropriate exercises. ONGOING 3. Pt. to perform bed mobility with supervision using bed features or adaptive equipment as needed. ONGOING 4. Pt. to perform sit to stand and stand pivot transfers with min A using a front wheeled walker. ONGOING 5. Pt. to ambulate 25 feet with min A using a front wheeled walker. ONGOING 6. Pt will stand with UE support and min A x2 minutes while participating in functional tasks. ONGOING 7. Pt to propel wheelchair x 50 ft. using R UE/LE with supervision. ONGOING 8. Pt will tolerate progression towards upright with stable vital signs. ONGOING Plan: Therapy Frequency (PT): 2-4 times/wk Time IN / OUT: 10:15-11:00 Total Minutes, Physical Therapy: 45 TE-F x 3 JASWINDER CHUNG PTA 02/23/2022 Pager: [phone] Physical Therapy Inpatient Rehabilitation Department Sixto Medina MD - 02/23/2022 10:46 AM EDT Acute Care Surgery Daily Progress Note Admission Date: 01/23/2022 ID: Alix Holland is a 31 y.o. male with HTN, angioedema requiring intubation 04/21, GERD, gastritis, esophagitis, urachal cyst, and polysubstance use (EtOH, cocaine, heroin) who was admitted to the MICU 01/23/2022 s/p VT arrest in the setting of being found down following fentanyl overdose and developing L forearm and L thigh compartment syndrome (s/p L forearm, L buttock, and L thigh fasciotomies) w/ subsequent rhabdomyolysis, renal failure, and hyperkalemia which required CVVH. He was transitioned to iHD and transferred to floor status 02/02, however he had persistent daily transfusion requirement from ongoing wound vac bleeding and returned to the OR x2 (02/04 and 02/05) for irrigation and debridement of fasciotomy wounds, however no focal source of bleeding was identified. He was transferred to the SICU 02/05 after L thigh wound vac filled with alexsandra blood and hgb dropped to 4.6 despite 6U pRBC. He went to IR for embolization of SGA pseudoaneurysm and to the OR for hematoma washout on 02/06. He returned to the OR for washout and debridement again on 02/08 and 02/09. He was subsequently lateralized to the ACS service and transferred to floor status on 02/10. His hospital course has also been notable for asymptomatic COVID-19 infection, C. 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 Procedures: 01/23: L thigh fasciotomy, L lower leg fasciotomy, L buttock fasciotomy, L forearm fasciotomy 01/26: Debridements and wound vac change 01/29: Debridement of fasciotomies, closure of L lower leg fasciotomy, closure of dorsal forearm fasciotomy, partial closure L thigh fasciotomy 01/31: Debridement and wound vac change 02/02: Debridement and wound vac change 02/04: Debridement and wound vac change 02/05: Debridement and wound vac change, 02/06: IR embolization of SGA pseudoaneurysm 02/06: LLE hematoma evacuation and washout 02/08: washout and debridement LLE, vac change LUE 02/09: washout and debridement LLE with vac placement 02/11: washout and vac change, LLE and LUE 02/13: washout and vac change, LLE and LUE 02/15: washout and vac change, LLE and LUE, possible drainage of L gluteal abscess 02/19: washout and vac change, LLE and LUE 02/22: washout and vac change, LLE and LUE Subjective Interval Events: - No acute events overnight - To OR for washout and wound vac change, wound appeared healthy without signs of infection - Re-engaged ID, discontinued Cefepime and Flagyl, continue PO Vanc until 03/01 Objective Vitals: Last Value Range last 24 hrs Temperature Temp: 36.8 ??C (98.2 ??F) Temp: [36.6 ??C (97.9 ??F)-37.1 ??C (98.8 ??F)] Heart Rate Heart Rate: (!) 104 Heart Rate: [104] Blood Pressure BP: (!) 148/108 BP: (141-153)/(105-108) Respiratory Rate Resp: 20 Resp: [18-20] SpO2 SpO2: 98 % SpO2: [95 %-99 %] O2 Device O2 Device: None (Room air) Intake/Output: 02/23 0701 - 02/24 0700 In: - Out: 3300 [Urine:3300] Physical Exam: GEN: resting comfortably in bed, pleasant, conversant, NAD HEENT: normocephalic, atraumatic CHEST: comfortable work of breathing on RA CV: regular rate, well perfused ABD: soft, nontender, nondistended EXTR: moving spontaneously, edema present in L arm; L thigh wound vac in place, holding suction; L forearm wound vac in place, holding suction SKIN: WWP NEURO: AOx3, follows commands Labs: Recent Labs 02/23/22 0500 02/22/22 0108 02/21/22 0338 WBC 8.1 8.9 8.9 HGB 7.0* 7.3* 6.9* HCT 22.4* 22.7* 21.4* PLATELET 300 317 273 Recent Labs 02/23/22 0500 02/22/22 0108 02/21/22 0338 NA 137 137 136 K 4.6 5.1* 4.9 CL 102 101 101 CO2 BUN 59* 55* 46* CREATININE 3.90* 3.91* 3.68* GLUCOSE 113 95 96 CALCIUM 8.3* 8.2* 8.1* MAGNESIUM 0.93 0.90 0.92 PHOS 6.2* 5.9* 5.1* C Diff Screen Date Value Ref Range Status 02/01/2022 Positive (A) Negative Final Comment: PCR Pos C. diff?? Positive (GDH positive, toxin antigen negative, toxin PCR positive) DNA from a toxigenic strain of C. difficile was detected, although the free toxin itself was not detected.?? These results cannot distinguish between colonization and infection. They must be interpreted within the patient???s overall clinical context. Consider other causes for diarrhea or the presence of a non-toxigenic strain. Patient needs to remain on Soap & Water Contact Precautions until discharge or approval by Infection Prevention. Abscess/Wound Aspirate Culture Date Value Ref Range Status 02/19/2022 (A) Final Rare Serratia marcescens Rare Pseudomonas aeruginosa 02/17/2022 (A) Final One colony of Serratia marcescens : Susceptibilities previously reported One colony of Pseudomonas aeruginosa : Susceptibilities previously reported 02/17/2022 (A) Final One colony of Serratia marcescens : Susceptibilities previously reported Anaerobic Culture Date Value Ref Range Status 02/19/2022 No anaerobic organisms isolated Final 02/17/2022 No anaerobic organisms isolated Final 02/17/2022 No anaerobic organisms isolated Final Tissue Culture Date Value Ref Range Status 02/09/2022 (A) Final Few Pseudomonas aeruginosa Few Serratia marcescens Susceptibilities previously reported Blood Culture Date Value Ref Range Status 02/06/2022 No growth at 5 days. Final 02/05/2022 No growth at 5 days. Final 02/01/2022 No growth at 5 days. Final Studies: 02/11/2022 MR Brain: IMPRESSION Evolution of bilateral globi pallidi injury. Question subtle developing deep white matter changes. Mild increased caliber of the ventricular system which may reflect reduced edema. or volume loss secondary to recent toxic metabolic insult. 02/13 CT A/P: IMPRESSION 1. No evidence of deep intra-abdominal infection. 2. Status post coiling of the LEFT superior gluteal artery and LEFT lateral thigh fasciotomy. 3. Suspect incomplete clearing of the LEFT medial gluteal abscess. 4. Ill-defined, likely abscess involving the LEFT abductor jorge muscle 8 x 4.5 x 3.5 cm. MRI may be beneficial in further characterization. 5. Anasarca 6. RIGHT basilar pleural effusions and underlying airspace consolidations. atelectasis versus pneumonitis. 02/13 CT Femur: IMPRESSION 1. No evidence of deep intra-abdominal infection. 2. Status post coiling of the LEFT superior gluteal artery and LEFT lateral thigh fasciotomy. 3. Suspect incomplete clearing of the LEFT medial gluteal abscess. 4. Ill-defined, likely abscess involving the LEFT abductor jorge muscle 8 x 4.5 x 3.5 cm. MRI may be beneficial in further characterization. 5. Anasarca 6. RIGHT basilar pleural effusions and underlying airspace consolidations, atelectasis versus pneumonitis. 02/13 KUB: IMPRESSION No obstruction. No perforation. Assessment and Plan Alix Holland is a 31 y.o. male with HTN, angioedema requiring intubation 04/21, GERD, gastritis, esophagitis, urachal cyst, and polysubstance use (EtOH, cocaine, heroin) who was admitted 01/23/2022 forcompartment syndrome and rhabdomyalysis after being found down. He is now s/p multiple fasciotomies and debridements of LLE and L forearm. Mr. Holland has had a prolonged, complicated hospital course which has been significant for renal replacement therapy secondary to rhabdomyolysis, ICU admissions, multiple debridements, and persistent transfusion requirement. He was transferred to the floor 02/10 and appears to be slowly progressing towards recovery. Plan for him to go to the OR again on Thursday 02/22 for washout and wound VAC change. Will likely require ongoing washouts and wound VAC changes in the OR. His wound cultures are growing Pseudomonas and Serratia for which he has been covered with by Zosyn.ID consulted 02/11. Zosyn discontinued and transitioned to cefepime per their recs. He also has C. difficile for which he is being treated with p.o. vancomycin which we will continue for 10 days following discontinuation of cefepime. ID consulted on 02/17 and they confirmed this plan. His leukocytosis continues to improve, now WBC (8.9)-02/22. ID was again consulted on 02/22 in the setting that his pseudomonas is resistant to cefepime. Despite the resistence, Mr. Holland has been afebrile and without a leukocytosis so the decision was made to stop cefepime and flagyl and continue vancomycin until 03/01/22. He went to OR yesterday for washout and wound vac change. Wounds appeared healthy without signs of active infection. ID was consulted for continued antibiotic management in the setting of drug resistant pseudomonas on culture; they recommended discontinuing cefepime and flagyl and continuing on PO vanc omycin until 03/01. Nephrology is following for rhabdomyolysis and renal failure. He will continue on iHD per nephrologyrecs, now Tuesday, , Tuesday to better accommodate OR schedule. We will transition him to every other day labs to avoid unnecessary draws. Plan: Neuro: #Pain - Scheduled PO Tylenol - PO Oxycodone PRN Q4 #Polysubstance abuse, found down following fentanyl ingestion, Toxic metabolic encephalopathy, bilateral globus pallidum infarcts - Thiamine, folate supplementation - Q shift neurovascular checks - Neurology consulted 01/23, re-consulted 02/16, no changes to plan --- Expected BG evolution on MRI. No further w/u --- Re-consult neuro closer to d/c for EMG/NCS testing for peripheral neuropathy CV: - Persistent tachycardia, likely d/t increased metabolic demand from wounds and infections - Amlodipine 10mg daily - No active interventions, CTM Resp: - Encourage IS, OOB - No active interventions, CTM GI: - Senna-docusate BID - Marinol 10mg BID FEN: F: PO ad minoo E: Every other day CBC, BMP, Mag, Phos, No IVF N: NPO diet (Give Meds) for OR 02/24, Encourage good PO intake post-op - Nutrition team consulted, appreciate recs Renal/: - No active interventions, CTM - Nephrology consulted 01/23, re-consulted 02/15, appreciate recs (see note from 02/21) - F/U ferritin level --- iHD //Tue, next session 02/25 Heme: - DVT ppx per below - Transfuse for Hgb < 7 ID: - 02/08 and 02/09 wound cx: Pseudomonas, serratia - ID consulted 02/11, 02/17, re-consulted 02/22 appreciate recs - D/c Cefepime (02/11 - 02/22) - can d/c due to antibiotic resistance - Cont PO Vanc BID for c diff (02/01- ) until 03/01/22 - D/C IV flagyl q8h for c diff (02/16 - 02/22) --- PO vanc to continue x10 days after Cefepime ends - s/p Unasyn (01/23-01/26 and 01/29-02/01), Cefazolin (01/26-01/29 and 02/01-02/07), Zosyn (02/08-02/11) - 02/15 L Thigh wound culture: Pseudomonas, Serratia, Gram positive cocci Endo: - No active interventions, CTM MSK: - s/p multiple fasciotomies 01/23: L thigh fasciotomy (wound vac'd), L gluteal fasciotomy, L lower leg fasciotomy (closed 01/29), L volar forearm fasciotomy (wound vac'd), L dorsal forearm fasciotomy (closed 01/29) - s/p multiple OR debridements and wound vac changes - Plastics consulted 02/04 ---Saw patient 02/17 in OR, preliminary plan for grafting LUE next week (week of 02/22), communicated okay for primary team to close wounds - Ortho consulted 02/17 --- Orthopedics signed off, weight bearing status to be determined by primary team Prophy: Resp: OOB, IS DVT: SQH TID, IPCs, OOB Lines/Drains/Tubes/Airways: - R IJ triple lumen HD catheter - Rectal tube removal Dispo: - Floor status - PT/OT consulted 01/27, appreciate recs Code Status: Attempt Cardiopulmonary Resuscitation - Inpatient Alonzo Oakley, MS4 02/24/2022 Acute Care Surgery Team pager [phone] A medical student assisted me in the documentation of this note. I personally saw and evaluated the patient, reviewed all applicable documented studies, and diagnostic images. The assessment and plan were formulated with the care team at the time of the visit and in my presence. I have made edits to the above note and agree with the details above. Sixto Medina MD PGY-1, General Surgery Acute Care Surgery 02/24/22 Allison Kelly MD - 02/22/2022 2:37 PM EDT Acute Care Surgery Daily Progress Note Admission Date: 01/23/2022 ID: Alix Holland is a 31 y.o. male with HTN, angioedema requiring intubation 04/21, GERD, gastritis, esophagitis, urachal cyst, and polysubstance use (EtOH, cocaine, heroin) who was admitted to the MICU 01/23/2022 s/p VT arrest in the setting of being found down following fentanyl overdose and developing L forearm and L thigh compartment syndrome (s/p L forearm, L buttock, and L thigh fasciotomies) w/ subsequent rhabdomyolysis, renal failure, and hyperkalemia which required CVVH. He was transitioned to iHD and transferred to floor status 02/02, however he had persistent daily transfusion requirement from ongoing wound vac bleeding and returned to the OR x2 (02/04 and 02/05) for irrigation and debridement of fasciotomy wounds, however no focal source of bleeding was identified. He was transferred to the SICU 02/05 after L thigh wound vac filled with alexsandra blood and hgb dropped to 4.6 despite 6U pRBC. He went to IR for embolization of SGA pseudoaneurysm and to the OR for hematoma washout on 02/06. He returned to the OR for washout and debridement again on 02/08 and 02/09. He was subsequently lateralized to the ACS service and transferred to floor status on 02/10. His hospital course has also been notable for asymptomatic COVID-19 infection, C. 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 Procedures: 01/23: L thigh fasciotomy, L lower leg fasciotomy, L buttock fasciotomy, L forearm fasciotomy 01/26: Debridements and wound vac change 01/29: Debridement of fasciotomies, closure of L lower leg fasciotomy, closure of dorsal forearm fasciotomy, partial closure L thigh fasciotomy 01/31: Debridement and wound vac change 02/02: Debridement and wound vac change 02/04: Debridement and wound vac change 02/05: Debridement and wound vac change, 02/06: IR embolization of SGA pseudoaneurysm 02/06: LLE hematoma evacuation and washout 02/08: washout and debridement LLE, vac change LUE 02/09: washout and debridement LLE with vac placement 02/11: washout and vac change, LLE and LUE 02/13: washout and vac change, LLE and LUE 02/15: washout and vac change, LLE and LUE, possible drainage of L gluteal abscess 02/19: washout and vac change, LLE and LUE 02/22: washout and vac change, LLE and LUE Subjective Interval Events: - Increase amlodipine to 10mg per nephrology - Tuesday, , Tuesday iHD - No acute events overnight Objective Vitals: Last Value Range last 24 hrs Temperature Temp: 36.7 ??C (98.1 ??F) Temp: [36.4 ??C (97.5 ??F)-37.1 ??C (98.8 ??F)] Heart Rate Heart Rate: 96 Heart Rate: [76-109] Blood Pressure BP: (!) 143/96 (RN notified) BP: (113-150)/(82-111) Respiratory Rate Resp: 18 Resp: [8-20] SpO2 SpO2: 98 % SpO2: [94 %-100 %] O2 Device O2 Device: None (Room air) Intake/Output: 02/21 0701 - 02/22 0700 In: 1990 [P.O.:1550; I.V.:100] Out: 5750 [Urine:4550] Physical Exam: GEN: resting comfortably in bed, pleasant, conversant, NAD HEENT: normocephalic, atraumatic CHEST: comfortable work of breathing on RA CV: regular rate, well perfused ABD: soft, nontender, nondistended EXTR: moving spontaneously, edema present in L arm; L thigh wound vac in place, holding suction; L forearm wound vac in place, holding suction SKIN: WWP NEURO: AOx3, follows commands Labs: Recent Labs 02/22/2210702/21/22 0338 02/20/22 0445 WBC 8.9 8.9 9.7* HGB 7.3* 6.9* 7.2* HCT 22.7* 21.4* 22.2* PLATELET 317 273 312 Recent Labs 02/22/2210702/21/22 0338 02/20/22 0445 NA 137 136 136 K 5.1* 4.9 4.7 CL 101 101 99 CO2 23 26 27 BUN 55* 46* 35* CREATININE 3.91* 3.68* 3.27* GLUCOSE 95 96 98 CALCIUM 8.2* 8.1* 7.8* MAGNESIUM 0.90 0.92 0.83 PHOS 5.9* 5.1* 4.6* C Diff Screen Date Value Ref Range Status 02/01/2022 Positive (A) Negative Final Comment: PCR Pos C. diff?? Positive (GDH positive, toxin antigen negative, toxin PCR positive) DNA from a toxigenic strain of C. difficile was detected, although the free toxin itself was not detected.?? These results cannot distinguish between colonization and infection. They must be interpreted within the patient???s overall clinical context. Consider other causes for diarrhea or the presence of a non-toxigenic strain. Patient needs to remain on Soap & Water Contact Precautions until discharge or approval by Infection Prevention. Abscess/Wound Aspirate Culture Date Value Ref Range Status 02/19/2022 (A) Final Rare Serratia marcescens Rare Pseudomonas aeruginosa 02/17/2022 (A) Final One colony of Serratia marcescens : Susceptibilities previously reported One colony of Pseudomonas aeruginosa : Susceptibilities previously reported 02/17/2022 (A) Final One colony of Serratia marcescens : Susceptibilities previously reported Anaerobic Culture Date Value Ref Range Status 02/19/2022 No anaerobic organisms isolated to date Final 02/17/2022 No anaerobic organisms isolated Final 02/17/2022 No anaerobic organisms isolated Final Tissue Culture Date Value Ref Range Status 02/09/2022 (A) Final Few Pseudomonas aeruginosa Few Serratia marcescens Susceptibilities previously reported Blood Culture Date Value Ref Range Status 02/06/2022 No growth at 5 days. Final 02/05/2022 No growth at 5 days. Final 02/01/2022 No growth at 5 days. Final Studies: 02/11/2022 MR Brain: IMPRESSION Evolution of bilateral globi pallidi injury. Question subtle developing deep white matter changes. Mild increased caliber of the ventricular system which may reflect reduced edema. or volume loss secondary to recent toxic metabolic insult. 02/13 CT A/P: IMPRESSION 1. No evidence of deep intra-abdominal infection. 2. Status post coiling of the LEFT superior gluteal artery and LEFT lateral thigh fasciotomy. 3. Suspect incomplete clearing of the LEFT medial gluteal abscess. 4. Ill-defined, likely abscess involving the LEFT abductor jorge muscle 8 x 4.5 x 3.5 cm. MRI may be beneficial in further characterization. 5. Anasarca 6. RIGHT basilar pleural effusions and underlying airspace consolidations. atelectasis versus pneumonitis. 02/13 CT Femur: IMPRESSION 1. No evidence of deep intra-abdominal infection. 2. Status post coiling of the LEFT superior gluteal artery and LEFT lateral thigh fasciotomy. 3. Suspect incomplete clearing of the LEFT medial gluteal abscess. 4. Ill-defined, likely abscess involving the LEFT abductor jorge muscle 8 x 4.5 x 3.5 cm. MRI may be beneficial in further characterization. 5. Anasarca 6. RIGHT basilar pleural effusions and underlying airspace consolidations, atelectasis versus pneumonitis. 02/13 KUB: IMPRESSION No obstruction. No perforation. Assessment and Plan Alix Holland is a 31 y.o. male with HTN, angioedema requiring intubation 04/21, GERD, gastritis, esophagitis, urachal cyst, and polysubstance use (EtOH, cocaine, heroin) who was admitted 01/23/2022 forcompartment syndrome and rhabdomyalysis after being found down. He is now s/p multiple fasciotomies and debridements of LLE and L forearm. Mr. Holland has had a prolonged, complicated hospital course which has been significant for renal replacement therapy secondary to rhabdomyolysis, ICU admissions, multiple debridements, and persistent transfusion requirement. He was transferred to the floor 02/10 and appears to be slowly progressing towards recovery. Plan for him to go to the OR again on Thursday 02/22 for washout and wound VAC change. Will likely require ongoing washouts and wound VAC changes in the OR. His wound cultures are growing Pseudomonas and Serratia for which he has been covered with by Zosyn.ID consulted 02/11. Zosyn discontinued and transitioned to cefepime per their recs. He also has C. difficile for which he is being treated with p.o. vancomycin which we will continue for 10 days following discontinuation of cefepime. ID consulted on 02/17 and they confirmed this plan. His leukocytosis continues to improve, now WBC (8.9)-02/22. ID was again consulted on 02/22 in the setting that his pseudomonas is resistant to cefepime. Despite the resistence, Mr. Holland has been afebrile and without a leukocytosis so the decision was made to stop cefepime and flagyl and continue vancomycin until 03/01/22. Nephrology is following for rhabdomyolysis and renal failure. He will continue on iHD per nephrologyrecs. He underwent hemodialysis 02/19 and will be due again on Friday 02/23. He will undergo dialysison a Tuesday, , Tuesday schedule. He was increased to 10mg amlodipine for his hypertension per nephrology. From a nutrition standpoint he has not been reaching his nutrition goals. This is likely due to a multitude of reasons, namely frequently missing meals due to being n.p.o. for q2d debridement and woundVAC changes in the OR, increased requirements due to size of wounds, extra protein losses from dialysis, and limitations on supplemental nutrition modalities given total fluid restriction. Nutrition recommends continued Marinol for appetite stimulation. Plan: Neuro: #Pain - Scheduled PO Tylenol - Marinol 10mg BID - PO Oxycodone PRN Q4 #Polysubstance abuse, found down following fentanyl ingestion, Toxic metabolic encephalopathy, bilateral globus pallidum infarcts - Thiamine, folate supplementation - Q shift neurovascular checks - Neurology consulted 01/23, re-consulted 02/16, no changes to plan --- Expected BG evolution on MRI. No further w/u --- Re-consult neuro closer to d/c for EMG/NCS testing for peripheral neuropathy CV: - Persistent tachycardia, likely d/t increased metabolic demand from wounds and infections - Amlodipine 10mg daily - No active interventions, CTM Resp: - Encourage IS, OOB - No active interventions, CTM GI: - Senna-docusate BID FEN: F: PO ad minoo E: CTM, no IVF, supplement prn, daily CBC, BMP, Mag, Phos N: Regular diet - Nutrition team consulted, appreciate recs --- Not meeting nutrition goals. Needs > 100 g protein/day with iHD and wound vac losses & healing needs --- On Ensure Compact --- Could consider PPN as a nutrition bridge but w/ current fluid restriction, nutrition provisions would be limited Renal/: - No active interventions, CTM - Nephrology consulted 01/23, re-consulted 02/15, appreciate recs (see note from 02/21) - F/U ferritin level --- iHD MWF, next session 02/23 Heme: - DVT ppx per below - Transfuse for Hgb < 7 ID: - 02/08 and 02/09 wound cx: Pseudomonas, serratia - ID consulted 02/11, 02/17, re-consulted 02/22 appreciate recs - D/c Cefepime (02/11 - 02/22) - can d/c due to antibiotic resistance - Cont PO Vanc BID for c diff (02/01- ) until 03/01/22 - D/C IV flagyl q8h for c diff (02/16 - 02/22) --- PO vanc to continue x10 days after Cefepime ends - s/p Unasyn (01/23-01/26 and 01/29-02/01), Cefazolin (01/26-01/29 and 02/01-02/07), Zosyn (02/08-02/11) - 02/15 L Thigh wound culture: Pseudomonas, Serratia, Gram positive cocci Endo: - No active interventions, CTM MSK: - s/p multiple fasciotomies 01/23: L thigh fasciotomy (wound vac'd), L gluteal fasciotomy, L lower leg fasciotomy (closed 01/29), L volar forearm fasciotomy (wound vac'd), L dorsal forearm fasciotomy (closed 01/29) - s/p multiple OR debridements and wound vac changes- POC WNL on 02/22 - Plastics consulted 02/04 ---Saw patient 02/17 in OR, preliminary plan for grafting LUE next week (week of 02/22) - Ortho consulted 02/17 --- Orthopedics signed off, weight bearing status to be determined by primary team Prophy: Resp: OOB, IS DVT: SQH TID, IPCs, OOB Lines/Drains/Tubes/Airways: - R IJ triple lumen HD catheter - Rectal tube Dispo: - Floor status - PT/OT consulted 01/27, appreciate recs Code Status: Attempt Cardiopulmonary Resuscitation - Inpatient Nancy Chahal MD 02/22/2022 Acute Care Surgery Team pager [phone] Attending Addendum I have seen and examined the patient, I have reviewed the vitals, labs and pertinent imaging. I havediscussed the documentation above and agree, with the following comments: Went to the OR today with clean wounds noted - from our standpoint would d/c cefepime and flagyl andcontinue PO vanc for 1 week but will discuss with ID team to confirm. Appreciate ongoing renal followup, plan for HD tomorrow. Continuing to encourage good PO intake. Allison Kelly MD [phone] Allison Kelly MD - 02/22/2022 1:14 PM EDT Acute Care Surgery Post-Operative Progress Note Alix Holland 02/22/2022 Surgery/Issue: Procedure(s): DEBRIDEMENT SKIN, SUBCU, MUSCLE, LOWER EXTREMITY (WRVU 2.7) MODIFIER WOUND VAC DRESSING CHANGE (FOR OTHER THAN GALLOWAY) UNDER ANES., UPPER EXTREMITY (WRVU 0.86) Attending: [place] Date of surgery: 02/22/2022 Findings: 1. Left forearm wound vac removed with one black sponge, measured 22 cm by 8 cm, with healthy granulation tissue. Sharp excisional debridement of tissue on exposed tendon. One black sponge placed. 2. Left thigh wound vac removed two sponges. Wound measured 53 cm x 15cm x8 cm. Evidence of healthy granulation tissue, no purulence appreciated. Closed superior aspect of wound with 3-0 vicryl deep dermal and prolene horizontal mattress sutures. One black sponge placed into deep cavity with prolene suture marking end of sponge; two superficial black sponges placed over the rest of the wound. Subjective/Events: Pt was seen and examined. Pain well controlled, pt mostly complaining of pain over the left thigh wound. Denies nausea, vomiting, chest pain, shortness of breath, numbness/weakness. Objcetive: Temp: [36.4 ??C (97.5 ??F)-37.3 ??C (99.1 ??F)] Heart Rate: [76-115] Resp: [8-20] BP: (113-150)/(82-111) Intake/Output Summary (Last 24 hours) at 02/22/2022 1314 Last data filed at 02/22/2022 0918 Gross per 24 hour Intake 2140 ml Output 3381 ml Net -1241 ml Lab Results Component Value Date NA 137 02/22/2022 K 5.1 (H) 02/22/2022 CL 101 02/22/2022 CO2 23 02/22/2022 BUN 55 (H) 02/22/2022 CREATININE 3.91 (H) 02/22/2022 GLUCOSE 95 02/22/2022 GLUCFASTING 151 (H) 04/26/2021 CALCIUM 8.2 (L) 02/22/2022 Lab Results Component Value Date WBC 8.9 02/22/2022 HGB 7.3 (L) 02/22/2022 HCT 22.7 (L) 02/22/2022 MCV 88.7 02/22/2022 PLATELET 317 02/22/2022 Lab Results Component Value Date INR 1.1 02/08/2022 Exam: General: appears in no acute distress, A/O x 3 HEENT: NC/AT Chest: CTA b/l Cardiac: RRR Abdomen: soft, NT/ND, benign Extremity: LLE wound with dressing in place,??non tender,??L thigh wound with wound vac in place holding suction, tender to palpation,??L forearm wound with wound vac in place holding suction, non tender. Incision: dressing c/d/i. No evidence of hematoma/seroma/infection A/P: Alix Holland is a 31 y.o. male patient s/p LLE and LUE wound debridement and wound vac change 1. Pain- controlled 2. Nausea- denies 3. Specific c/o- none 4. Volume status- Urine output adequate, will monitor 5. DVT prophylaxis- SCDs 6. Diet: Regular Diet 7. Requested Imaging: N/A 8. Disposition- floor Melissa Gonzales MD Acute Care Surgery Pager [phone] Kevon Brian MD - 02/22/2022 10:29 AM EDT INFECTIOUS DISEASE FOLLOW-UP NOTE Active ID Issue(s): Surgical site infection Antimicrobial Therapy: Cefepime IV 1 g IV daily Metronidazole IV 500 mg IV Q 8 horus Vancomycin 125 mg PO BID Intercurrent Events/Subjective Data: No event overnight. Wound looks nice and clean per team. No signs of infection. Seen in PACU, very sleepy. No complaints. Physical Exam: Last value Range last 24 hrs Temperature Temp: 36.7 ??C (98.1 ??F) Temp: [36.7 ??C (98.1 ??F)-37.3 ??C (99.1 ??F)] Heart Rate Heart Rate: 90 Heart Rate: [76-115] Blood Pressure BP: (!) 136/108 BP: (113-150)/(82-111) Respiratory Rate Resp: 11 Resp: [8-20] SpO2 SpO2: 96 % SpO2: [94 %-100 %] Laboratory: Recent Labs 02/22/228 02/21/22 0338 02/20/22 0445 WBC 8.9 8.9 9.7* HGB 7.3* 6.9* 7.2* HCT 22.7* 21.4* 22.2* PLATELET 317 273 312 Recent Labs 02/22/2210702/21/228 02/20/22 0445 NA 137 136 136 K 5.1* 4.9 4.7 CL 101 101 99 CO2 23 26 27 BUN 55* 46* 35* CREATININE 3.91* 3.68* 3.27* No results for input(s): AST, ALT, ALKPHOS, BILITOT, BILIDIR in the last 168 hours. CRP (mg/L) Date Value 04/26/2021 <3.0 Sed Rate (mm/hr) Date Value 04/26/2021 <3 Microbiology: 01/23: blood cx*2 NG 01/23:Tracheal Aspirate: MSSA 01/28: blood cx*1 NG 02/01: blood cx*2 NG 02/01: C diff screen neg 02/04: urine GC, trichomonas screen: neg 02/05: ??blood cx*1 NG 02/06: ??blood cx*1 NG 02/08 wound cxs??Left thigh #1&2: Pseudomonas??(multIS), serratia??(multi S except for tetracycline); GS: GNR 02/09 wound cx: Pseudomonas??(multIS), serratia??(multi S except for tetracycline); GS: GNR 02/15: Intraoperative cultures with Pseudomonas and Serratia 02/19 wound culture Left thigh Serratia marcescens Pseudomonas aeruginosa VITEK 2 METHOD MICROSCAN METHOD Amikacin Sensitive Sensitive Aztreonam Sensitive Resistant Cefepime Sensitive Resistant Ceftazidime Sensitive Resistant Ceftriaxone Sensitive Ciprofloxacin Sensitive Ertapenem Sensitive Gentamicin Sensitive Sensitive Levofloxacin Sensitive 1 Sensitive 1 Meropenem Sensitive Sensitive Piperacillin/Tazobactam Resistant Tetracycline Resistant Tigecycline ?? Sensitive Tobramycin Sensitive Sensitive Trimethoprim/Sulfa Sensitive Radiology/Studies/Procedures: No new imaging. Assessment: Alix Holland is a 31 y.o.male HTN, angioedema requiring intubation 04/21, GERD, gastritis, esophagitis, urachal cyst, and polysubstance use (EtOH, cocaine, heroin)??who was admitted to the MICU??01/23/2022??s/p VT arrest in the setting of being??found down following fentanyl ingestion and developing Lforearm and L thigh compartment syndrome (s/p L forearm, L buttock, and L thigh fasciotomies) w/ subsequent rhabdomyolysis, renal failure, and hyperkalemia which required CVVH and now in iHD. His hospitalization was complicated by multiple surgical site infection that needed multiple irrigation and debridement of the fasciotomy. His initial wound culture grew Serratia and pseudomonas which sensitive to Cefepime that we recommended him to be on. However, on the last OR trip for a wound VAC change 02/19. The fluid from OR now grew pseudomonas that resistant to cefepime. Upon discussion with the surgical team, at this point, his wounds looks good with granulation tissueand no sign of infection. The day when he was brought to OR on 02/19, his wound VAC was not functioning and therefore, there was fluid accumulating in the wound superficially and they sent the swab to micro lab. Patient has been on IV Cefepime since 02/11 and this should be adequate to cover for skin and soft tissue infection with good source control. We do not want him to have further complicated course with XDR organism or recurrent C.diff. Therefore, would recommend to stop Cefepime and Metronidazole. Would continue vancomycin for one more week after stopping systemic antibiotic as a prophylaxis from C.diff infection (he completed the course of vancomycin from 02/01-02/11). Recommendations: - Stop Cefepime - Stop Metronidazole - Continue Vancomycin 125 mg PO BID (end date 03/01) Patient discussed with ID attending Dr. Brian. Recommendations discussed with primary treating team. ID consult service will sign off. Please do not hesitate to page with any questions or concerns. Alexis Rodriguez MD Infectious Disease Fellow 02/22/2022 10:30 AM Infectious Diseases Attending I discussed the case with Dr. Rodriguez and reviewed the medical record, but I did not interview or examine Mr. Holland today. Surgery feels that the wounds are no longer infected, the patient is afebrile, normal WBC. I agree with Dr. Rodriguez's recommendations, as detailed above. OK to d/c systemic antibiotics, continue oral vancomycin for one more week. Kierra Muñoz RN - 02/22/2022 9:31 AM EDT Pt admitted from OR, monitors applied, report received, VSS, pt asleep O2 6Lvia mask, LS clear, leftupper and lower extremity dressings intact with black wound vac dressings, LR infusing into right triple lumen, continue to monitor and assess Bambi Pressley MD - 02/21/2022 12:49 PM EDT Patient seen and examined in follow-up for severe acute kidney injury due to severe rhabdomyolysis, previously requiring continuous renal replacement therapy, currently on intermittent dialysis. Patient is in reasonably good spirits today. His dad is visiting. He has no specific complaints except weakness of his arms and legs. Pain seems somewhat less prominent than on previous encounters. No overt uremic symptoms. He is nonoliguric. Scheduled Meds: ??? heparin (porcine) 5,000 Units Subcutaneous 2 times per day ??? amLODIPine 5 mg Oral Daily ??? metroNIDAZOLE 500 mg Intravenous Q8H ??? dronabinoL 10 mg Oral BID ??? ceFEPime 1 g Intravenous Q24H ??? ascorbic acid (Vitamin C) 250 mg Oral Daily ??? miconazole nitrate Topical (Top) BID ??? vitamin B Complex-vitamin C-folic Acid 1 tablet Oral Daily ??? vancomycin 125 mg Oral BID ??? senna-docusate 2 tablet Oral BID ??? folic acid 1,000 mcg Oral Daily ??? thiamine 100 mg Oral Daily ??? acetaminophen 1,000 mg Oral Q8H [place] Continuous Infusions: PRN Meds:.heparin (porcine), heparin (porcine), oxyCODONE OR oxyCODONE OR [DISCONTINUED] oxyCODONE, heparin (porcine), lactulose, alteplase BP (!) 150/104 (Patient Position: Lying) Comment: RN aware Pulse (!) 124 Comment: w/activity, eating. Notified MD. Temp 37 ??C (98.6 ??F) (Oral) Resp 18 Ht 182.9 cm (6' 0.01) Wt 104.3 kg (229 lb 15 oz) SpO2 98% BMI 31.18 kg/m?? I/O last 3 completed shifts: In: 960 [P.O.:960] Out: 4100 [Urine:3150; Other:950] I/O this shift: In: 0 Out: 2375 [Urine:1675; Stool:700] He is pale consistent with anemia. Wound vacs in multiple locations. Moderate edema of left arm and hand and both legs. Chest clear but diminished at bases (he is almost always supine in bed), heart borderline tachycardic and hyperdynamic consistent with his anemia, abdomen soft, extremities as described. Data reviewed. Hemoglobin has drifted down to 6.9, platelets and white blood cell count normal. Creatinine 3.68 (3.27 yesterday), lites normal, calcium 8.1, magnesium 0.92, phosphorus 5.1. Sugars normal. Wound culture from February 19 growing Serratia and Pseudomonas. He remains on cefepime. Most recent albumin was 1.3 on February 12. Rechecking. Most recent iron studies showed TSAT 28% on February 02. Ferritin has not been checked. A/P The rate of rise of creatinine between treatments is less steep. I think we can hold off on dialysistomorrow and observe him for another day barring urgent indications. Anticipate next dialysis Tuesday. This will also work better with timing of his Tuesday wound VAC dressings. Agree with plans for packed red cells. I have attempted to add on serum ferritin. He is on multivitamins. Blood pressure remains elevated. Suggest increasing amlodipine to 10 mg. He is on treatment for C. difficile with oral vancomycin as well as metronidazole. No response thus far to epo but may not have adequate iron stores? Patient and his father updated on renal aspects of his case. Melissa Gonzales MD - 02/21/2022 11:22 AM EDT Acute Care Surgery Daily Progress Note Admission Date: 01/23/2022 ID: Alix Holland is a 31 y.o. male with HTN, angioedema requiring intubation 04/21, GERD, gastritis, esophagitis, urachal cyst, and polysubstance use (EtOH, cocaine, heroin) who was admitted to the MICU 01/23/2022 s/p VT arrest in the setting of being found down following fentanyl overdose and developing L forearm and L thigh compartment syndrome (s/p L forearm, L buttock, and L thigh fasciotomies) w/ subsequent rhabdomyolysis, renal failure, and hyperkalemia which required CVVH. He was transitioned to iHD and transferred to floor status 02/02, however he had persistent daily transfusion requirement from ongoing wound vac bleeding and returned to the OR x2 (02/04 and 02/05) for irrigation and debridement of fasciotomy wounds, however no focal source of bleeding was identified. He was transferred to the SICU 02/05 after L thigh wound vac filled with alexsandra blood and hgb dropped to 4.6 despite 6U pRBC. He went to IR for embolization of SGA pseudoaneurysm and to the OR for hematoma washout on 02/06. He returned to the OR for washout and debridement again on 02/08 and 02/09. He was subsequently lateralized to the ACS service and transferred to floor status on 02/10. His hospital course has also been notable for asymptomatic COVID-19 infection, C. 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 Procedures: 01/23: L thigh fasciotomy, L lower leg fasciotomy, L buttock fasciotomy, L forearm fasciotomy 01/26: Debridements and wound vac change 01/29: Debridement of fasciotomies, closure of L lower leg fasciotomy, closure of dorsal forearm fasciotomy, partial closure L thigh fasciotomy 01/31: Debridement and wound vac change 02/02: Debridement and wound vac change 02/04: Debridement and wound vac change 02/05: Debridement and wound vac change, 02/06: IR embolization of SGA pseudoaneurysm 02/06: LLE hematoma evacuation and washout 02/08: washout and debridement LLE, vac change LUE 02/09: washout and debridement LLE with vac placement 02/11: washout and vac change, LLE and LUE 02/13: washout and vac change, LLE and LUE 02/15: washout and vac change, LLE and LUE, possible drainage of L gluteal abscess 02/19: washout and vac change, LLE and LUE Subjective Interval Events: - Pt off of fluid restrictions per nephrology - No acute events overnight - Pt continues to become tachy to 130s with ambulation, with resolution when resting Objective Vitals: Last Value Range last 24 hrs Temperature Temp: 36.8 ??C (98.2 ??F) Temp: [36.7 ??C (98.1 ??F)-37.3 ??C (99.1 ??F)] Heart Rate Heart Rate: (!) 124 (w/activity, eating. Notified MD.) Heart Rate: [100-124] Blood Pressure BP: (!) 137/98 BP: (130-148)/(88-106) Respiratory Rate Resp: 18 Resp: [16-18] SpO2 SpO2: 98 % SpO2: [95 %-98 %] O2 Device O2 Device: None (Room air) Intake/Output: 02/20 0701 - 02/21 0700 In: 960 [P.O.:960] Out: 2600 [Urine:1650] Physical Exam: GEN: resting comfortably in bed, pleasant, conversant, NAD HEENT: normocephalic, atraumatic CHEST: comfortable work of breathing on RA CV: regular rate, well perfused ABD: soft, nontender, nondistended EXTR: moving spontaneously, no edema; L thigh wound vac in place, holding suction; L forearm wound vac in place, holding suction SKIN: WWP NEURO: AOx3, follows commands Labs: Recent Labs 02/21/22 0338 02/20/22 0445 02/19/22 0027 WBC 8.9 9.7* 12.9* HGB 6.9* 7.2* 7.1* HCT 21.4* 22.2* 21.9* PLATELET 273 312 320 Recent Labs 02/21/22 0338 02/20/22 0445 02/19/22 0027 NA 136 136 133* K 4.9 4.7 4.6 CL 101 99 97* CO2 26 27 24 BUN 46* 35* 49* CREATININE 3.68* 3.27* 4.47* GLUCOSE 96 98 100 CALCIUM 8.1* 7.8* 7.8* MAGNESIUM 0.92 0.83 0.84 PHOS 5.1* 4.6* 5.9* C Diff Screen Date Value Ref Range Status 02/01/2022 Positive (A) Negative Final Comment: PCR Pos C. diff?? Positive (GDH positive, toxin antigen negative, toxin PCR positive) DNA from a toxigenic strain of C. difficile was detected, although the free toxin itself was not detected.?? These results cannot distinguish between colonization and infection. They must be interpreted within the patient???s overall clinical context. Consider other causes for diarrhea or the presence of a non-toxigenic strain. Patient needs to remain on Soap & Water Contact Precautions until discharge or approval by Infection Prevention. Abscess/Wound Aspirate Culture Date Value Ref Range Status 02/19/2022 (A) Final Rare Serratia marcescens Rare Pseudomonas aeruginosa 02/17/2022 (A) Final One colony of Serratia marcescens : Susceptibilities previously reported One colony of Pseudomonas aeruginosa : Susceptibilities previously reported 02/17/2022 (A) Final One colony of Serratia marcescens : Susceptibilities previously reported Anaerobic Culture Date Value Ref Range Status 02/19/2022 No anaerobic organisms isolated to date Final 02/17/2022 Final No anaerobic organisms isolated to date Culture in progress 02/17/2022 Final No anaerobic organisms isolated to date Culture in progress Tissue Culture Date Value Ref Range Status 02/09/2022 (A) Final Few Pseudomonas aeruginosa Few Serratia marcescens Susceptibilities previously reported Blood Culture Date Value Ref Range Status 02/06/2022 No growth at 5 days. Final 02/05/2022 No growth at 5 days. Final 02/01/2022 No growth at 5 days. Final Studies: 02/11/2022 MR Brain: IMPRESSION Evolution of bilateral globi pallidi injury. Question subtle developing deep white matter changes. Mild increased caliber of the ventricular system which may reflect reduced edema. or volume loss secondary to recent toxic metabolic insult. 02/13 CT A/P: IMPRESSION 1. No evidence of deep intra-abdominal infection. 2. Status post coiling of the LEFT superior gluteal artery and LEFT lateral thigh fasciotomy. 3. Suspect incomplete clearing of the LEFT medial gluteal abscess. 4. Ill-defined, likely abscess involving the LEFT abductor jorge muscle 8 x 4.5 x 3.5 cm. MRI may be beneficial in further characterization. 5. Anasarca 6. RIGHT basilar pleural effusions and underlying airspace consolidations. atelectasis versus pneumonitis. 02/13 CT Femur: IMPRESSION 1. No evidence of deep intra-abdominal infection. 2. Status post coiling of the LEFT superior gluteal artery and LEFT lateral thigh fasciotomy. 3. Suspect incomplete clearing of the LEFT medial gluteal abscess. 4. Ill-defined, likely abscess involving the LEFT abductor jorge muscle 8 x 4.5 x 3.5 cm. MRI may be beneficial in further characterization. 5. Anasarca 6. RIGHT basilar pleural effusions and underlying airspace consolidations, atelectasis versus pneumonitis. 02/13 KUB: IMPRESSION No obstruction. No perforation. Assessment and Plan Alix Holland is a 31 y.o. male with HTN, angioedema requiring intubation 04/21, GERD, gastritis, esophagitis, urachal cyst, and polysubstance use (EtOH, cocaine, heroin) who was admitted 01/23/2022 forcompartment syndrome and rhabdomyalysis after being found down. He is now s/p multiple fasciotomies and debridements of LLE and L forearm. Mr. Holland has had a prolonged, complicated hospital course which has been significant for renal replacement therapy secondary to rhabdomyolysis, ICU admissions, multiple debridements, and persistent transfusion requirement. He was transferred to the floor 02/10 and appears to be slowly progressing towards recovery. Plan for him to go to the OR again on Thursday 02/22 for washout and wound VAC change. Will likely require ongoing washouts and wound VAC changes in the OR. His wound cultures are growing Pseudomonas and Serratia for which he has been covered with by Zosyn.ID consulted 02/11. Zosyn discontinued and transitioned to cefepime per their recs. He also has C. difficile for which he is being treated with p.o. vancomycin which we will continue for 10 days following discontinuation of cefepime. ID consulted on 02/17 and they confirmed this plan. His leukocytosis continues to improve, now WBC (8.9)-02/21. Nephrology is following for rhabdomyolysis and renal failure. He will continue on iHD per nephrologyrecs. He underwent hemodialysis 02/19 and will be due again on Thursday 02/22. He is now off of 1.5 L total fluid restriction, appreciate Nephrology recs, due to normonatremia. From a nutrition standpoint he has not been reaching his nutrition goals. This is likely due to a multitude of reasons, namely frequently missing meals due to being n.p.o. for q2d debridement and woundVAC changes in the OR, increased requirements due to size of wounds, extra protein losses from dialysis, and limitations on supplemental nutrition modalities given total fluid restriction. Plan: Neuro: #Pain - Scheduled PO Tylenol - Marinol 10mg BID - PO Oxycodone PRN Q4 #Polysubstance abuse, found down following fentanyl ingestion, Toxic metabolic encephalopathy, bilateral globus pallidum infarcts - Thiamine, folate - Q shift neurovascular checks - Neurology consulted 01/23, re-consulted 02/16, no changes to plan --- Expected BG evolution on MRI. No further w/u --- Re-consult neuro closer to d/c for EMG/NCS testing for peripheral neuropathy CV: - Persistent tachycardia, likely d/t increased metabolic demand from wounds and infections - Amlodipine 5mg daily - No active interventions, CTM Resp: - Encourage IS, OOB - No active interventions, CTM GI: - Senna-docusate BID FEN: F: PO ad minoo E: CTM, supplement prn N: Regular diet NPO diet (Give Meds) @ midnight for OR tomorrow (02/22) - Nutrition team consulted, appreciate recs --- Not meeting nutrition goals. Needs > 100 g protein/day with iHD and wound vac losses & healing needs --- On Ensure Compact --- Could consider PPN as a nutrition bridge but w/ current fluid restriction, nutrition provisions would be limited Renal/: - No active interventions, CTM - Nephrology consulted 01/23, re-consulted 02/15, appreciate recs --- iHD MWF, next session 02/22 Heme: - DVT ppx per below - Transfuse for Hgb < 7 ID: - 02/08 and 02/09 wound cx: Pseudomonas, serratia - ID consulted 02/11, re-consulted 02/17, appreciate recs - Cont Cefepime (02/11 - ) - Cont PO Vanc BID for c diff (02/01- ) - Cont IV flagyl q8h for c diff (02/16 - ) --- PO vanc to continue x10 days after Cefepime ends - s/p Unasyn (01/23-01/26 and 01/29-02/01), Cefazolin (01/26-01/29 and 02/01-02/07), Zosyn (02/08-02/11) - 02/15 L Thigh wound culture: Pseudomonas, Serratia, Gram positive cocci Endo: - No active interventions, CTM MSK: - s/p multiple fasciotomies 01/23: L thigh fasciotomy (wound vac'd), L gluteal fasciotomy, L lower leg fasciotomy (closed 01/29), L volar forearm fasciotomy (wound vac'd), L dorsal forearm fasciotomy (closed 01/29) - s/p multiple OR debridements and wound vac changes- Due for OR Thursday 02/22 - Plastics consulted 02/04 ---Saw patient 02/17 in OR, preliminary plan for grafting LUE next week (week of 02/22) - Ortho consulted 02/17 --- Orthopedics signed off, weight bearing status to be determined by primary team Prophy: Resp: OOB, IS DVT: SQH TID, IPCs, OOB Lines/Drains/Tubes/Airways: - R IJ triple lumen HD catheter - Rectal tube Dispo: - Floor status - PT/OT consulted 01/27, appreciate recs Code Status: Attempt Cardiopulmonary Resuscitation - Inpatient Melissa Gonzales MD 02/21/2022 Acute Care Surgery Team pager [phone] Associated attestation - Gela Novak MD - 02/21/2022 11:55 AM EDT This patient was personally seen and examined on team rounds. I agree with the assessment and plan as discussed. Diagnoses and therapy were explained and all questions were answered. RTOR qMWF for wound care Nutrition PT/OT Gela Novak MD 02/21/2022 11:55 AM Gina Montaño MD - 02/20/2022 1:57 PM EDT Acute Care Surgery Daily Progress Note Admission Date: 01/23/2022 ID: Alix Holland is a 31 y.o. male with HTN, angioedema requiring intubation 04/21, GERD, gastritis, esophagitis, urachal cyst, and polysubstance use (EtOH, cocaine, heroin) who was admitted to the MICU 01/23/2022 s/p VT arrest in the setting of being found down following fentanyl overdose and developing L forearm and L thigh compartment syndrome (s/p L forearm, L buttock, and L thigh fasciotomies) w/ subsequent rhabdomyolysis, renal failure, and hyperkalemia which required CVVH. He was transitioned to iHD and transferred to floor status 02/02, however he had persistent daily transfusion requirement from ongoing wound vac bleeding and returned to the OR x2 (02/04 and 02/05) for irrigation and debridement of fasciotomy wounds, however no focal source of bleeding was identified. He was transferred to the SICU 02/05 after L thigh wound vac filled with alexsandra blood and hgb dropped to 4.6 despite 6U pRBC. He went to IR for embolization of SGA pseudoaneurysm and to the OR for hematoma washout on 02/06. He returned to the OR for washout and debridement again on 02/08 and 02/09. He was subsequently lateralized to the ACS service and transferred to floor status on 02/10. His hospital course has also been notable for asymptomatic COVID-19 infection, C. 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 Procedures: 01/23: L thigh fasciotomy, L lower leg fasciotomy, L buttock fasciotomy, L forearm fasciotomy 01/26: Debridements and wound vac change 01/29: Debridement of fasciotomies, closure of L lower leg fasciotomy, closure of dorsal forearm fasciotomy, partial closure L thigh fasciotomy 01/31: Debridement and wound vac change 02/02: Debridement and wound vac change 02/04: Debridement and wound vac change 02/05: Debridement and wound vac change, 02/06: IR embolization of SGA pseudoaneurysm 02/06: LLE hematoma evacuation and washout 02/08: washout and debridement LLE, vac change LUE 02/09: washout and debridement LLE with vac placement 02/11: washout and vac change, LLE and LUE 02/13: washout and vac change, LLE and LUE 02/15: washout and vac change, LLE and LUE, possible drainage of L gluteal abscess 02/19: washout and vac change, LLE and LUE Subjective Interval Events: - Upper extremity duplex to rule out DVT in the setting of increased swelling was negative - OR for wound vac change - Underwent HD, tachycardic afterwards within his usual post-HD range Objective Vitals: Last Value Range last 24 hrs Temperature Temp: 37 ??C (98.6 ??F) Temp: [36.8 ??C (98.2 ??F)-37.3 ??C (99.2 ??F)] Heart Rate Heart Rate: (!) 107 Heart Rate: [107-121] Blood Pressure BP: (!) 148/99 BP: (142-148)/(84-105) Respiratory Rate Resp: 16 Resp: [12-18] SpO2 SpO2: 97 % SpO2: [96 %-100 %] O2 Device O2 Device: None (Room air) Intake/Output: 02/19 0701 - 02/20 0700 In: 250 [I.V.:250] Out: 5752 [Urine:2750] Physical Exam: GEN: resting comfortably in bed, pleasant, conversant, NAD HEENT: normocephalic, atraumatic CHEST: comfortable work of breathing on RA CV: regular rate, well perfused ABD: soft, nontender, nondistended EXTR: moving spontaneously, no edema; L thigh wound vac in place, holding suction; L forearm wound vac in place, holding suction SKIN: WWP NEURO: AOx3, follows commands Labs: Recent Labs 02/20/22 0445 02/19/22 0027 02/18/22 0401 WBC 9.7* 12.9* 15.2* HGB 7.2* 7.1* 7.0* HCT 22.2* 21.9* 22.0* PLATELET 312 320 325 Recent Labs 02/20/22 0445 02/19/22 0027 02/18/22 0401 NA 136 133* 132* K 4.7 4.6 4.3 CL 99 97* 97* CO2 27 24 28 BUN 35* 49* 36* CREATININE 3.27* 4.47* 3.80* GLUCOSE 98 100 98 CALCIUM 7.8* 7.8* 7.9* MAGNESIUM 0.83 0.84 0.79 PHOS 4.6* 5.9* 4.9* C Diff Screen Date Value Ref Range Status 02/01/2022 Positive (A) Negative Final Comment: PCR Pos C. diff?? Positive (GDH positive, toxin antigen negative, toxin PCR positive) DNA from a toxigenic strain of C. difficile was detected, although the free toxin itself was not detected.?? These results cannot distinguish between colonization and infection. They must be interpreted within the patient???s overall clinical context. Consider other causes for diarrhea or the presence of a non-toxigenic strain. Patient needs to remain on Soap & Water Contact Precautions until discharge or approval by Infection Prevention. Abscess/Wound Aspirate Culture Date Value Ref Range Status 02/19/2022 (A) Final Rare Serratia marcescens Rare Pseudomonas aeruginosa 02/17/2022 (A) Final One colony of Serratia marcescens : Susceptibilities previously reported One colony of Pseudomonas aeruginosa : Susceptibilities previously reported 02/17/2022 (A) Final One colony of Serratia marcescens : Susceptibilities previously reported Anaerobic Culture Date Value Ref Range Status 02/17/2022 No anaerobic organisms isolated to date Final 02/17/2022 No anaerobic organisms isolated to date Final 02/15/2022 No anaerobic organisms isolated Final Tissue Culture Date Value Ref Range Status 02/09/2022 (A) Final Few Pseudomonas aeruginosa Few Serratia marcescens Susceptibilities previously reported Blood Culture Date Value Ref Range Status 02/06/2022 No growth at 5 days. Final 02/05/2022 No growth at 5 days. Final 02/01/2022 No growth at 5 days. Final Studies: 02/11/2022 MR Brain: IMPRESSION Evolution of bilateral globi pallidi injury. Question subtle developing deep white matter changes. Mild increased caliber of the ventricular system which may reflect reduced edema. or volume loss secondary to recent toxic metabolic insult. 02/13 CT A/P: IMPRESSION 1. No evidence of deep intra-abdominal infection. 2. Status post coiling of the LEFT superior gluteal artery and LEFT lateral thigh fasciotomy. 3. Suspect incomplete clearing of the LEFT medial gluteal abscess. 4. Ill-defined, likely abscess involving the LEFT abductor jorge muscle 8 x 4.5 x 3.5 cm. MRI may be beneficial in further characterization. 5. Anasarca 6. RIGHT basilar pleural effusions and underlying airspace consolidations. atelectasis versus pneumonitis. 02/13 CT Femur: IMPRESSION 1. No evidence of deep intra-abdominal infection. 2. Status post coiling of the LEFT superior gluteal artery and LEFT lateral thigh fasciotomy. 3. Suspect incomplete clearing of the LEFT medial gluteal abscess. 4. Ill-defined, likely abscess involving the LEFT abductor jorge muscle 8 x 4.5 x 3.5 cm. MRI may be beneficial in further characterization. 5. Anasarca 6. RIGHT basilar pleural effusions and underlying airspace consolidations, atelectasis versus pneumonitis. 02/13 KUB: IMPRESSION No obstruction. No perforation. Assessment and Plan Alix Holland is a 31 y.o. male with HTN, angioedema requiring intubation 04/21, GERD, gastritis, esophagitis, urachal cyst, and polysubstance use (EtOH, cocaine, heroin) who was admitted 01/23/2022 forcompartment syndrome and rhabdomyalysis after being found down. He is now s/p multiple fasciotomies and debridements of LLE and L forearm. Mr. Holland has had a prolonged, complicated hospital course which has been significant for renal replacement therapy secondary to rhabdomyolysis, ICU admissions, multiple debridements, and persistent transfusion requirement. He was transferred to the floor 02/10 and appears to be slowly progressing towards recovery. Plan for him to go to the OR again on Thursday 02/22 for washout and wound VAC change. Will likely require ongoing washouts and wound VAC changes in the OR. His wound cultures are growing Pseudomonas and Serratia for which he has been covered with by Zosyn.ID consulted 02/11. Zosyn discontinued and transitioned to cefepime per their recs. He also has C. difficile for which he is being treated with p.o. vancomycin which we will continue for 10 days following discontinuation of cefepime. ID consulted on 02/17 and they confirmed this plan. His leukocytosis continues to improve. Nephrology is following for rhabdomyolysis and renal failure. He will continue on iHD per nephrologyrecs. He underwent hemodialysis 02/19 and will be due again on Thursday 02/22. He is also on a 1.5 L total fluid restriction, which includes both p.o. and IV fluids, due to inability to excrete free water and ongoing hyponatremia. We continue to appreciate Nephrology recs. From a nutrition standpoint he has not been reaching his nutrition goals. This is likely due to a multitude of reasons, namely frequently missing meals due to being n.p.o. for q2d debridement and woundVAC changes in the OR, increased requirements due to size of wounds, extra protein losses from dialysis, and limitations on supplemental nutrition modalities given total fluid restriction. Plan: Neuro: #Pain - Scheduled PO Tylenol - Marinol 10mg BID - PO Oxycodone PRN Q4 #Polysubstance abuse, found down following fentanyl ingestion, Toxic metabolic encephalopathy, bilateral globus pallidum infarcts - Thiamine, folate - Q shift neurovascular checks - Neurology consulted 01/23, re-consulted 02/16, no changes to plan --- Expected BG evolution on MRI. No further w/u --- Re-consult neuro closer to d/c for EMG/NCS testing for peripheral neuropathy CV: - Persistent tachycardia, likely d/t increased metabolic demand from wounds and infections - Amlodipine 5mg daily - No active interventions, CTM Resp: - Encourage IS, OOB - No active interventions, CTM GI: - Senna-docusate BID FEN: F: PO ad minoo. Fluid restriction dc'd 02/20 given normonatremia E: CTM, supplement prn N: Regular diet - Nutrition team consulted, appreciate recs --- Not meeting nutrition goals. Needs > 100 g protein/day with iHD and wound vac losses & healing needs --- On Ensure Compact --- Could consider PPN as a nutrition bridge but w/ current fluid restriction, nutrition provisions would be limited Renal/: - No active interventions, CTM - Nephrology consulted 01/23, re-consulted 02/15, appreciate recs --- iHD MWF, next session 02/22 -D/c ayala, avoid placing ayala if possible, patient has had larger volume bladder scans, but will void independently with near-complete emptying if asked to try to void Heme: - DVT ppx per below - Transfuse for Hgb < 7 ID: - 02/08 and 02/09 wound cx: Pseudomonas, serratia - ID consulted 02/11, re-consulted 02/17, appreciate recs - Cont Cefepime (02/11 - ) - Cont PO Vanc BID for c diff (02/01- ) - Cont IV flagyl q8h for c diff (02/16 - ) --- PO vanc to continue x10 days after Cefepime ends - s/p Unasyn (01/23-01/26 and 01/29-02/01), Cefazolin (01/26-01/29 and 02/01-02/07), Zosyn (02/08-02/11) - 02/15 L Thigh wound culture: Pseudomonas, Serratia, Gram positive cocci Endo: - No active interventions, CTM MSK: - s/p multiple fasciotomies 01/23: L thigh fasciotomy (wound vac'd), L gluteal fasciotomy, L lower leg fasciotomy (closed 01/29), L volar forearm fasciotomy (wound vac'd), L dorsal forearm fasciotomy (closed 01/29) - s/p multiple OR debridements and wound vac changes- Due for OR Thursday 02/22 - Plastics consulted 02/04 ---Saw patient 02/17 in OR, preliminary plan for grafting LUE next week (week of 02/22) - Wound care consulted for excoriations around penis and rectum, orders placed per recs - Ortho consulted 02/17, --- Orthopedics signed off, wound care per primary team, weight bearing on LUE and LLE. --- no formal ortho note yet Prophy: Resp: OOB, IS DVT: SQH TID, IPCs, OOB Lines/Drains/Tubes/Airways: - R IJ triple lumen HD catheter - Rectal tube - Remove ayala Dispo: - Floor status - PT/OT consulted 01/27, appreciate recs Code Status: Attempt Cardiopulmonary Resuscitation - Inpatient Alonzo Oakley, 4 02/20/2022 Acute Care Surgery Team pager [phone] A medical student assisted me in the documentation of this note. I personally saw and evaluated the patient, reviewed all applicable documented studies, and diagnostic images. The assessment and plan were formulated with the care team at the time of the visit and in my presence. I have made edits to the above note and agree with the details above. Gina Montaño MD Resident, General Surgery 02/20/22 Associated attestation - Gela Novak MD - 02/21/2022 7:22 AM EDT This patient was personally seen and examined on team rounds. I agree with the assessment and plan as discussed. Diagnoses and therapy were explained and all questions were answered. RTOR qMWF for wound care Nutrition PT/OT Gela Novak MD 02/21/2022 7:22 AM Bambi Pressley MD - 02/20/2022 9:52 AM EDT Patient seen and examined on rounds in follow-up for severe acute kidney injury related to rhabdomyolysis. Patient sleeping this morning is groggy when he is awakened. No specific complaints. Lying flat comfortably. Scheduled Meds: ??? heparin (porcine) 5,000 Units Subcutaneous 2 times per day ??? amLODIPine 5 mg Oral Daily ??? metroNIDAZOLE 500 mg Intravenous Q8H ??? dronabinoL 10 mg Oral BID ??? ceFEPime 1 g Intravenous Q24H ??? ascorbic acid (Vitamin C) 250 mg Oral Daily ??? miconazole nitrate Topical (Top) BID ??? vitamin B Complex-vitamin C-folic Acid 1 tablet Oral Daily ??? vancomycin 125 mg Oral BID ??? senna-docusate 2 tablet Oral BID ??? folic acid 1,000 mcg Oral Daily ??? thiamine 100 mg Oral Daily ??? acetaminophen 1,000 mg Oral Q8H [place] Continuous Infusions: PRN Meds:.heparin (porcine), heparin (porcine), oxyCODONE OR oxyCODONE OR [DISCONTINUED] oxyCODONE, heparin (porcine), lactulose, alteplase BP (!) 139/95 (BP Location (NBP): Right arm) Pulse (!) 120 Temp 36.7 ??C (98.1 ??F) (Oral) Resp 18 Ht 182.9 cm (6' 0.01) Wt 104.3 kg (229 lb 15 oz) SpO2 96% BMI 31.18 kg/m?? I/O last 3 completed shifts: In: 1210 [P.O.:960; I.V.:250] Out: 7952 [Urine:4000; Other:3950; Blood:2] I/O this shift: In: - Out: 400 [Urine:400] Right IJ site clean, dry, intact. Chest clear anteriorly and laterally. Heart regular, slightly lesstachycardic. Abdomen soft and nontender. Moderate peripheral edema but improved compared to yesterday. Sleepy consistent with his analgesics. Data shows slightly lower postdialysis creatinine at about 3.3. Persistent but stable anemia. Electrolytes okay. Phosphorus improved. Assessment plan: Severe acute kidney injury. No longer oliguric, but remains to be seen if he will recover enough clearance to forego further dialysis. Blood pressure running high-suggest increasing amlodipine to 10 mg nightly. Continue to trend labs so we can identify improving kidney function. Will continue with erythropoietin. Bambi Pressley MD - 02/19/2022 11:24 PM EDT Renal Staff Patient seen and examined on dialysis. Dx: Acute kidney injury related to rhabdomyolysis History: Patient had dressing changes this morning in the operating room. He says he is feeling okay. Nonoliguric. Persistent pain at wound sites in the left hand, but less bothersome than yesterday. Current Facility-Administered Medications: ??? heparin (porcine) (1,000 units/mL) injection 1,000-10,000 Units, 1,000- 10,000 Units, Intercatheter, Once in dialysis PRN, Kaitlyn Rock MD ??? heparin (porcine) (5,000 units/1 mL) subcutaneous injection 5,000 Units, 5,000 Units, Subcutaneous, 2 times per day, Gina Montaño MD, 5,000 Units at 02/19/222147 ??? amLODIPine (Norvasc) tablet 5 mg, 5 mg, Oral, Daily, Kaitlyn Rock MD, 5 mg at 02/19/221607 ??? heparin (porcine) (1,000 units/mL) injection 1,000-10,000 Units, 1,000- 10,000 Units, Intercatheter, Once in dialysis PRN, Kaitlyn Rock MD ??? metroNIDAZOLE (Flagyl) 500 mg in sodium chloride 0.9% 100 mL infusion, 500 mg, Intravenous, Q8H,Kaitlyn Rock MD, Last Rate: 200 mL/hr at 02/19/222145, 500 mg at 02/19/222145 ??? oxyCODONE (Roxicodone) tablet 10 mg, 10 mg, Oral, Q4H PRN OR oxyCODONE (Roxicodone) tablet 15 mg, 15 mg, Oral, Q4H PRN, 15 mg at 02/19/222148 OR [DISCONTINUED] oxyCODONE (Roxicodone) tablet 20 mg, 20 mg, Oral, Q3H PRN, Collette Dye MD, 20 mg at 02/16/227 ??? heparin (porcine) (1,000 units/mL) injection 1,000-10,000 Units, 1,000- 10,000 Units, Intercatheter, Once in dialysis PRN, Kaitlyn Rock MD ??? dronabinoL (Marinol) capsule 10 mg, 10 mg, Oral, BID, Kaitlyn Rock MD, 10 mg at 02/19/222147 ??? ceFEPime (Maxipime) 1g vial attach to sodium chloride 0.9% 100 mL Mini-Bag Plus, 1 g, Intravenous, Q24H, Kaitlyn Rock MD, Stopped at 02/19/221908 ??? ascorbic acid (Vitamin C) (Vitamin C) tablet 250 mg, 250 mg, Oral, Daily, Kaitlyn Rock MD, 250 mgat 02/19/221607 ??? miconazole nitrate (Remedy Phytoplex) 2 % ointment, , Topical (Top), BID, Kaitlny Rock MD, Given at 02/19/222148 ??? vitamin B Complex-vitamin C-folic Acid (Eileen-scott) 0.8 mg per tablet 1 tablet, 1 tablet, Oral, Daily, Kaitlyn Rock MD, 1 tablet at 02/19/221612 ??? [COMPLETED] vancomycin (Vancocin) capsule 125 mg, 125 mg, Oral, 4 Times Daily, 125 mg at 02/11/223 FOLLOWED BY vancomycin (Vancocin) capsule 125 mg, 125 mg, Oral, BID, Kaitlyn Rock MD, 125 mg at 02/19/222147 ??? lactulose (Chronulac) (0.67 gram/mL) oral liquid 20 g, 20 g, Oral, BID PRN, Kaitlyn Rock MD ??? alteplase (Cathflo) injection 1-4 mg, 1-4 mL, INTRA-CATHETER, Once in dialysis PRN, Kaitlyn Rock MD, 2.4 mg at 02/07/22 0520 ??? senna-docusate (Pericolace) 8.6-50 mg per tablet 2 tablet, 2 tablet, Oral, BID, Kaitlyn Rock MD, 2 tablet at 02/19/221610 ??? folic acid (Folvite) tablet 1,000 mcg, 1,000 mcg, Oral, Daily, Kaitlyn Rock MD, 1,000 mcg at 02/19/221610 ??? thiamine (Vitamin B1) tablet 100 mg, 100 mg, Oral, Daily, Kaitlyn Rock MD, 100 mg at 02/19/221611 ??? acetaminophen (Tylenol) tablet 1,000 mg, 1,000 mg, Oral, Q8H [place], Kaitlyn Rock MD, 1,000 mg at 02/19/222147 Exam BP 146/88 (BP Location (NBP): Right arm, Patient Position: Lying) Pulse (!) 121 Temp 37.3 ??C (99.2 ??F) (Oral) Resp 18 Ht 182.9 cm (6' 0.01) Wt 104.3 kg (229 lb 15 oz) SpO2 98% BMI 31.18 kg/m?? Appearance: Awake, somewhat passive affect Skin: No rash Access: Temporary right IJ site intact Chest: Clear anteriorly and laterally Heart: Regular, somewhat hyperdynamic, systolic murmur 1 out of 6 Abd: Soft and nontender with bowel sounds Ext: Moderate pitting of distal legs and posterior thighs Neuro: Limited range of motion strength and altered light touch sensation left hand. Lab Results Component Value Date NA 133 (L) 02/19/2022 K 4.6 02/19/2022 CL 97 (L) 02/19/2022 CO2 24 02/19/2022 BUN 49 (H) 02/19/2022 CREATININE 4.47 (H) 02/19/2022 GLUCOSE 100 02/19/2022 GLUCFASTING 151 (H) 04/26/2021 CALCIUM 7.8 (L) 02/19/2022 Lab Results Component Value Date PHOS 5.9 (H) 02/19/2022 Lab Results Component Value Date WBC 12.9 (H) 02/19/2022 RBC 2.44 (L) 02/19/2022 HGB 7.1 (L) 02/19/2022 HCT 21.9 (L) 02/19/2022 MCV 89.8 02/19/2022 MCH 29.1 02/19/2022 MCHC 32.4 02/19/2022 PLATELET 320 02/19/2022 RDWCV 15.7 (H) 02/19/2022 A/P Dialysis Duration: 4 hours Bath: 3K Access: Temporary right IJ EDW: Not established Uf goal/achieved: 3 L Next: Likely Tuesday or Tuesday depending on degree of recovery over the weekend Anemia: EPO 10,000 with each dialysis C/P/D/PTH: Continue phosphate binders Lytes/acid-base: Mild hyponatremia will improve with dialysis Other wound management, rehabilitation per primary service. If no recovery of renal function by after weekend, consider conversion to tunneled dialysis catheter BAMBI PRESSLEY MD Melissa Gonzales MD - 02/19/2022 3:15 PM EDT Acute Care Surgery Post-Operative Progress Note Alix Holland 02/19/2022 Surgery/Issue: Procedure(s): DEBRIDEMENT SKIN, SUBCU, MUSCLE, LOWER EXTREMITY (WRVU 2.7) DRESSING CHANGE (FOR OTHER THAN GALLOWAY) UNDER ANES., UPPER EXTREMITY (WRVU 0.86) Attending: Kaylie Armstrong Date of surgery: 02/19/2022 Findings: 1. Left forearm wound vac removed with one black sponge, measured 22 cm in length, 9 cm wide, 3mm deep with good granulation tissue,??some exposed tendon,??one black sponge placed 2. Left thigh wound vac removed with two sponges, wound measured 53cm length x15cm wide and 8cm deepwith 12cm of posterior tunneling with good granulation without purulence, wound vac replaced with two black sponges. Subjective/Events: Pt was seen and examined. Pain well controlled. Denies nausea, vomiting, chest pain, shortness of breath, numbness/weakness. My feet are tingling, but it might be dialysis. Objcetive: Temp: [36 ??C (96.8 ??F)-37.2 ??C (99 ??F)] Heart Rate: [77-108] Resp: [10-19] BP: (128-162)/(84-107) Intake/Output Summary (Last 24 hours) at 02/19/2022 1614 Last data filed at 02/19/2022 1100 Gross per 24 hour Intake 852 ml Output 1527 ml Net -675 ml Lab Results Component Value Date NA 133 (L) 02/19/2022 K 4.6 02/19/2022 CL 97 (L) 02/19/2022 CO2 24 02/19/2022 BUN 49 (H) 02/19/2022 CREATININE 4.47 (H) 02/19/2022 GLUCOSE 100 02/19/2022 GLUCFASTING 151 (H) 04/26/2021 CALCIUM 7.8 (L) 02/19/2022 Lab Results Component Value Date WBC 12.9 (H) 02/19/2022 HGB 7.1 (L) 02/19/2022 HCT 21.9 (L) 02/19/2022 MCV 89.8 02/19/2022 PLATELET 320 02/19/2022 Lab Results Component Value Date INR 1.1 02/08/2022 Exam: General: appears in no acute distress, A/O x 3 HEENT: NC/AT Chest: CTA b/l Cardiac: RRR Abdomen: soft, NT/ND, benign Extremity: LLE wound with dressing in place,??non tender, L thigh wound with wound vac in place holding suction, tender to palpation, L forearm wound with wound vac in place holding suction, non tender (of note, LUE moderately swollen compared to RUE, pt getting Duplex ultrasound to rule out DVT) Incision: dressing c/d/i. No evidence of hematoma/seroma/infection A/P: Alix Holland is a 31 y.o. male patient s/p LLE and LUE wound debridement and wound vac change 1. Pain- controlled 2. Nausea- denies 3. Specific c/o- none 4. Volume status- Urine output adequate, will monitor 5. DVT prophylaxis- SCDs 6. Diet: Regular Diet 7. Requested Imaging: N/A 8. Disposition- floor Melissa Gonzales MD Acute Care Surgery Pager [phone] Melissa Gonzales MD - 02/19/2022 2:52 PM EDT Acute Care Surgery Daily Progress Note Admission Date: 01/23/2022 ID: Alix Holland is a 31 y.o. male with HTN, angioedema requiring intubation 04/21, GERD, gastritis, esophagitis, urachal cyst, and polysubstance use (EtOH, cocaine, heroin) who was admitted to the MICU 01/23/2022 s/p VT arrest in the setting of being found down following fentanyl overdose and developing L forearm and L thigh compartment syndrome (s/p L forearm, L buttock, and L thigh fasciotomies) w/ subsequent rhabdomyolysis, renal failure, and hyperkalemia which required CVVH. He was transitioned to iHD and transferred to floor status 02/02, however he had persistent daily transfusion requirement from ongoing wound vac bleeding and returned to the OR x2 (02/04 and 02/05) for irrigation and debridement of fasciotomy wounds, however no focal source of bleeding was identified. He was transferred to the SICU 02/05 after L thigh wound vac filled with alexsandra blood and hgb dropped to 4.6 despite 6U pRBC. He went to IR for embolization of SGA pseudoaneurysm and to the OR for hematoma washout on 02/06. He returned to the OR for washout and debridement again on 02/08 and 02/09. He was subsequently lateralized to the ACS service and transferred to floor status on 02/10. His hospital course has also been notable for asymptomatic COVID-19 infection, C. 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 Procedures: 01/23: L thigh fasciotomy, L lower leg fasciotomy, L buttock fasciotomy, L forearm fasciotomy 01/26: Debridements and wound vac change 01/29: Debridement of fasciotomies, closure of L lower leg fasciotomy, closure of dorsal forearm fasciotomy, partial closure L thigh fasciotomy 01/31: Debridement and wound vac change 02/02: Debridement and wound vac change 02/04: Debridement and wound vac change 02/05: Debridement and wound vac change, 02/06: IR embolization of SGA pseudoaneurysm 02/06: LLE hematoma evacuation and washout 02/08: washout and debridement LLE, vac change LUE 02/09: washout and debridement LLE with vac placement 02/11: washout and vac change, LLE and LUE 02/13: washout and vac change, LLE and LUE 02/15: washout and vac change, LLE and LUE, possible drainage of L gluteal abscess 02/17: washout and vac change, LLE and LUE 02/19: washout and vac change, LLE and LUE Subjective Interval Events: - Night team called to bedside due to new left arm and hand swelling. DVT suspected. Pt placed on a Hep gtt and Duplex ultrasound ordered. Objective Vitals: Last Value Range last 24 hrs Temperature Temp: 36.8 ??C (98.2 ??F) Temp: [36 ??C (96.8 ??F)-37.2 ??C (99 ??F)] Heart Rate Heart Rate: (!) 107 Heart Rate: [77-108] Blood Pressure BP: 145/84 BP: (128-162)/(84-107) Respiratory Rate Resp: 12 Resp: [10-19] SpO2 SpO2: 100 % SpO2: [93 %-100 %] O2 Device O2 Device: None (Room air) Intake/Output: 02/18 0701 - 02/19 0700 In: 1082 [P.O.:780; I.V.:302] Out: 1150 [Urine:1150] Physical Exam: GEN: resting comfortably in bed, pleasant, conversant, NAD HEENT: normocephalic, atraumatic CHEST: comfortable work of breathing on RA CV: regular rate, well perfused ABD: soft, nontender, nondistended EXTR: moving spontaneously; L thigh wound vac in place, holding suction; L forearm wound vac in place, holding suction, L forearm edematous with no skin changes SKIN: WWP NEURO: AOx3, follows commands Labs: Recent Labs 02/19/22 0027 02/18/22 0401 02/17/22 0340 WBC 12.9* 15.2* 17.0* HGB 7.1* 7.0* 7.1* HCT 21.9* 22.0* 22.2* PLATELET 320 325 316 Recent Labs 02/19/22 0027 02/18/22 0401 02/17/22 0340 NA 133* 132* 130* K 4.6 4.3 4.5 CL 97* 97* 96* CO2 24 28 24 BUN 49* 36* 51* CREATININE 4.47* 3.80* 5.07* GLUCOSE 100 98 101 CALCIUM 7.8* 7.9* 7.8* MAGNESIUM 0.84 0.79 0.86 PHOS 5.9* 4.9* 5.7* C Diff Screen Date Value Ref Range Status 02/01/2022 Positive (A) Negative Final Comment: PCR Pos C. diff?? Positive (GDH positive, toxin antigen negative, toxin PCR positive) DNA from a toxigenic strain of C. difficile was detected, although the free toxin itself was not detected.?? These results cannot distinguish between colonization and infection. They must be interpreted within the patient???s overall clinical context. Consider other causes for diarrhea or the presence of a non-toxigenic strain. Patient needs to remain on Soap & Water Contact Precautions until discharge or approval by Infection Prevention. Abscess/Wound Aspirate Culture Date Value Ref Range Status 02/17/2022 (A) Final One colony of Serratia marcescens : Susceptibilities previously reported One colony of Pseudomonas aeruginosa : Susceptibilities previously reported 02/17/2022 (A) Final One colony of Serratia marcescens : Susceptibilities previously reported 02/15/2022 (A) Final Few Serratia marcescens Rare Pseudomonas aeruginosa Rare mixed bacterial morphotypes suggestive of normal cutaneous yessy Anaerobic Culture Date Value Ref Range Status 02/17/2022 No anaerobic organisms isolated to date Final 02/17/2022 No anaerobic organisms isolated to date Final 02/15/2022 No anaerobic organisms isolated Final Tissue Culture Date Value Ref Range Status 02/09/2022 (A) Final Few Pseudomonas aeruginosa Few Serratia marcescens Susceptibilities previously reported Blood Culture Date Value Ref Range Status 02/06/2022 No growth at 5 days. Final 02/05/2022 No growth at 5 days. Final 02/01/2022 No growth at 5 days. Final Studies: 02/11/2022 MR Brain: IMPRESSION Evolution of bilateral globi pallidi injury. Question subtle developing deep white matter changes. Mild increased caliber of the ventricular system which may reflect reduced edema. or volume loss secondary to recent toxic metabolic insult. 02/13 CT A/P: IMPRESSION 1. No evidence of deep intra-abdominal infection. 2. Status post coiling of the LEFT superior gluteal artery and LEFT lateral thigh fasciotomy. 3. Suspect incomplete clearing of the LEFT medial gluteal abscess. 4. Ill-defined, likely abscess involving the LEFT abductor jorge muscle 8 x 4.5 x 3.5 cm. MRI may be beneficial in further characterization. 5. Anasarca 6. RIGHT basilar pleural effusions and underlying airspace consolidations. atelectasis versus pneumonitis. 02/13 CT Femur: IMPRESSION 1. No evidence of deep intra-abdominal infection. 2. Status post coiling of the LEFT superior gluteal artery and LEFT lateral thigh fasciotomy. 3. Suspect incomplete clearing of the LEFT medial gluteal abscess. 4. Ill-defined, likely abscess involving the LEFT abductor jorge muscle 8 x 4.5 x 3.5 cm. MRI may be beneficial in further characterization. 5. Anasarca 6. RIGHT basilar pleural effusions and underlying airspace consolidations, atelectasis versus pneumonitis. 02/13 KUB: IMPRESSION No obstruction. No perforation. Assessment and Plan Alix Holland is a 31 y.o. male with HTN, angioedema requiring intubation 04/21, GERD, gastritis, esophagitis, urachal cyst, and polysubstance use (EtOH, cocaine, heroin) who was admitted 01/23/2022 forcompartment syndrome and rhabdomyalysis after being found down. He is now s/p multiple fasciotomies and debridements of LLE and L forearm. Mr. Holland has had a prolonged, complicated hospital course which has been significant for renal replacement therapy secondary to rhabdomyolysis, ICU admissions, multiple debridements, and persistent transfusion requirement. He was transferred to the floor 02/10 and appears to be slowly progressing towards recovery. Plan for him to go to the OR again today 02/19 for washout and wound VAC change. Will likely require ongoing washouts and wound VAC changes in the OR. His wound cultures are growing Pseudomonas and Serratia for which he has been covered with by Zosyn.ID consulted 02/11. Zosyn discontinued and transitioned to cefepime per their recs. He also has C. difficile for which he is being treated with p.o. vancomycin which we will continue for 10 days following discontinuation of cefepime. ID consulted on 02/17 and they confirmed this plan. He has had a decreasing leukocytosis over the past few days (12.9/15.2/17.0/19.0). His leukocytosis could possibly be related to his C diff infection, however no abd pain per pt. Pt got a KUB and a CT A/P and Femur on 02/13. Results of imaging described above. Nephrology is following for rhabdomyolysis and renal failure. He will continue on iHD per nephrologyrecs. Next HD run planned for 02/19. He is also on a 1.5 L total fluid restriction, which includes both p.o. and IV fluids, due to inability to excrete free water and ongoing hyponatremia. Nephrology updated primary team on 02/15 that they are closely following the patient and that they will update us when their recommendations change, they did suggest adding amlodipine for HTN management. From a nutrition standpoint he has not been reaching his nutrition goals. This is likely due to a multitude of reasons, namely frequently missing meals due to being n.p.o. for q2d debridement and woundVAC changes in the OR, increased requirements due to size of wounds, extra protein losses from dialysis, and limitations on supplemental nutrition modalities given total fluid restriction. Plan: Neuro: #Pain - Scheduled PO Tylenol - Marinol 10mg BID - PO Oxycodone PRN Q4 #Polysubstance abuse, found down following fentanyl ingestion, Toxic metabolic encephalopathy, bilateral globus pallidum infarcts - Thiamine, folate - Q shift neurovascular checks - Neurology consulted 01/23, re-consulted 02/16, no changes to plan --- Expected BG evolution on MRI. No further w/u --- Re-consult neuro closer to d/c for EMG/NCS testing for peripheral neuropathy CV: - Persistent tachycardia, likely d/t increased metabolic demand from wounds and infections - Pt started on amlodipine 5mg daily (02/18) Resp: - Encourage IS, OOB - No active interventions, CTM GI: - Senna-docusate BID FEN: F: fluid restriction per nephrology recs below E: CTM, supplement prn N: Regular diet - Nutrition team consulted, appreciate recs --- Not meeting nutrition goals. Needs > 100 g protein/day with iHD and wound vac losses & healing needs --- On Ensure Compact --- Could consider PPN as a nutrition bridge but w/ current fluid restriction, nutrition provisions would be limited Renal/: - No active interventions, CTM - Bladder scans Q8 - Nephrology consulted 01/23, re-consulted 02/15, appreciate recs --- Suggested adding amlodipine for HTN --- iHD MWF, next session 02/19 --- Fluid restriction 1.5L/day (oral and IV) for mild hyponatremia in setting of HD dependence and unable to excrete water Heme: - No active interventions, CTM - DVT ppx per below - Transfuse for Hgb < 7 - Pt placed on Hep gtt for possible LUE DVT- held at 5AM 02/19 ID: - 02/08 and 02/09 wound cx: Pseudomonas, serratia - ID consulted 02/11, re-consulted 02/17, appreciate recs - Cont Cefepime (02/11 - ) - Cont PO Vanc BID for c diff (02/01- ) --- PO vanc to continue x10 days after Cefepime ends - s/p Unasyn (01/23-01/26 and 01/29-02/01), Cefazolin (01/26-01/29 and 02/01-02/07), Zosyn (02/08-02/11) - 02/15 L Thigh wound culture: Pseudomonas, Serratia, Gram positive cocci Endo: - No active interventions, CTM MSK: - s/p multiple fasciotomies 01/23: L thigh fasciotomy (wound vac'd), L gluteal fasciotomy, L lower leg fasciotomy (closed 01/29), L volar forearm fasciotomy (wound vac'd), L dorsal forearm fasciotomy (closed 01/29) - s/p multiple OR debridements and wound vac changes- OR 02/19 - Plastics consulted 02/04 ---Saw patient 02/17 in OR, preliminary plan for grafting LUE next week - Wound care consulted for excoriations around penis and rectum, orders placed per recs - Orthopedics reconsulted for non weight bearing status- Primary team told that orthopedics was deferring judgement to the primary team and signing off. - Duplex Ultrasound ordered for left hand and left arm swelling. Results pending. Prophy: Resp: OOB, IS DVT: SQH TID, IPCs, OOB Lines/Drains/Tubes/Airways: - R IJ triple lumen HD catheter - Rectal tube - Ayala placed in OR (to be d/c'd 02/20) Dispo: - Floor status - PT/OT consulted 01/27, appreciate recs Code Status: Attempt Cardiopulmonary Resuscitation - Inpatient Melissa Gonzales MD 02/19/2022 Acute Care Surgery Team pager [phone] Associated attestation - Gela Novak MD - 02/19/2022 3:32 PM EDT This patient was personally seen and examined on team rounds. I agree with the assessment and plan as discussed. Diagnoses and therapy were explained and all questions were answered. RTOR qMWF for wound care Nutrition PT/OT R/O DVT Gela Novak MD 02/19/2022 3:32 PM Laverne Steiner RN - 02/19/2022 10:20 AM EDT 1010 - admitted to PACU isolation from OR s/p procedure. Monitors attached and alarms set per protocol oral airway in place. Respirations easy clear BS in upper anterior lungs. 1016- eyes open spontaneously. Pt. Pushed oral airway out without incidence. Tasha Matthews OTA - 02/19/2022 10:04 AM EDT 02/19/22 1003 Evaluation & Treatment Document Type contact Total Minutes, Occupational Therapy 0 Comment, Session Not Performed Chart reviewed. Pt in the OR. Will follow up at a later time for OT. Collette Valente MD - 02/18/2022 11:55 PM EDT I was asked to evaluate the patient this evening for concern of acutely worsening LUE edema. Upon arrival into his room, the patient was resting comfortably and confirmed an increase in size of his LEFT hand, but unsure of when it happened. He denied any increase in pain or acute changes in mobility or passive range of motion. T 36.8C, HR 90, BP 145/107mmHg, RR 16 and satting 99% on RA. Compared to the right arm, his LEFT upper extremity is notably edematous (2+ pitting edema) from his axilla down through his fingers and appeared pale from the swelling. Radial signal 2+ on doppler. He is able to lift the arm, but is unable to flex or extend his hand or fingers (he states this is not new). His wound vac dressings are intactand holding suction. Per the MAR, he has been receiving SQH PPX (5000 units q8hrs), but I am concerned that he has developed a DVT in his LEFT upper extremity given the immobility and acute swelling -- will start a therapeutic heparin gtt with plan to hold at 5am (3-4 hours prior to OR for wound vac change) and order DVT study for the AM. This plan was discussed with Dr. Betancourt. Collette Valente MD General Surgery Bambi Pressley MD - 02/18/2022 7:37 PM EDT Patient seen and examined with renal fellow, Dr. Peñaloza, and I agree with her note. Suggest adding amlodipine to address hypertension. Erythropoietin to be given with dialysis to address anemia. Discussed healthy dietary choices with him. Good urine output encouraging for recovery, but creatinine, so far, has continued to rise between treatments. Plan dialysis tomorrow. Line site okay. He has significant pain and neuropathic symptoms in the left hand particularly. Timing of PT and Occupational Therapyper surgical service. Consider adjunct of analgesic directed at neuropathic symptoms? NEPHROLOGY PROGRESS NOTE PATIENT: Alix Holland : 1990 Interval History: Patient seen and examined at the bedside. Will go for HD in the morning. Has B/L LE and abdominal wall edema present. Intake output: I/O last 3 completed shifts: In: 1170 [P.O.:1030; I.V.:40; IV Piggyback:100] Out: 4435 [Urine:1575; Other:2850; Blood:10] No intake/output data recorded. He is making more urine. However his creatinine is not trending down for now. BP noted to be high. Patient does not have headache, shortness of breath or visual change. No chest pain. Assessment and Plan: A 31 year old male with PMHx drug abuse, HTN, angioedema, GERD, gastritis, ??was found to be in V tach cardiac arrest sec to hyperkalemia, severe rhabdomyolysis, in the setting of fentanyl overdose, c/b compartment syndrome, s/p left forearm, L buttock and L thigh fasciotomies, s/p CVVH earlier in the admission, now transitioned to iHD. ?? During this admission, he also had asymptomatic COVID-19 infection which has cleared, C. Diff infection and ischemic hepatitis. #Oliguric renal failure #Hypertension #Anemia #Hyponatremia #Volume overload #Hypoalbuminemia #Severe protein-calorie malnutrition #Hyperphosphatemia - Patient is due to be on HD in a.m. For now, the schedule will be MWF. Patient will be evaluated everyday for his renal function. - Will get EPO with the HD. - Optimize nutritional status. - Add Amlodipine 5 mg daily for HTN. This was discussed with the primary team. - Fluid removal will also help with the HTN. Additionally, patient may be in severe pain resulting in HTN. - Please observe low phosphorus diet. Patient has been educated about it. ?? PHYSICAL EXAM: Last value Temperature Temp: 37.2 ??C (99 ??F) Heart Rate Heart Rate: (!) 106 (notified nurse) Blood Pressure BP: (!) 162/105 (notified nurse) Respiratory Rate Resp: 16 SpO2 SpO2: 98 % General - AAOx4. No acute distress. HEENT - Atraumatic. Normocephalic Neck - No JVD Respiratory - B/L CTA. No crackles. Cardiovascular - No murmur Abdomen - Abdominal wall edema present Extremities - B/L LE edema present. Fasciotomies on the left leg and left arm. Psychiatric - Flat/ blunt affect Neurological - No FND Current Facility-Administered Medications Medication Dose Route Frequency Provider Last Rate Last Admin ??? amLODIPine (Norvasc) tablet 5 mg 5 mg Oral Daily Melissa Gonzales MD 5 mg at 02/18/22 1639 ??? heparin (porcine) (1,000 units/mL) injection 1,000-10,000 Units 1,000-10,000 Units IntercatheterOnce in dialysis PRN Collette Dye MD ??? metroNIDAZOLE (Flagyl) 500 mg in sodium chloride 0.9% 100 mL infusion 500 mg Intravenous Q8H Collette Dye MD Stopped at 02/18/22 1450 ??? oxyCODONE (Roxicodone) tablet 15 mg 15 mg Oral Q4H PRN Collette Dye MD 15 mg at 02/18/22 1639 Or ??? oxyCODONE (Roxicodone) tablet 10 mg 10 mg Oral Q4H PRN Collette Dye MD ??? heparin (porcine) (1,000 units/mL) injection 1,000-10,000 Units 1,000-10,000 Units IntercatheterOnce in dialysis PRN Collette Dye MD ??? dronabinoL (Marinol) capsule 10 mg 10 mg Oral BID Collette Dye MD 10 mg at 02/18/22 0807 ??? ceFEPime (Maxipime) 1g vial attach to sodium chloride 0.9% 100 mL Mini-Bag Plus 1 g Intravenous Q24H Collette Dye MD Stopped at 02/18/22 0941 ??? ascorbic acid (Vitamin C) (Vitamin C) tablet 250 mg 250 mg Oral Daily Collette Dye MD 250 mg at 02/18/22 08 ??? miconazole nitrate (Remedy Phytoplex) 2 % ointment Topical (Top) BID Collette Dye MD Given at 02/18/22 0808 ??? vitamin B Complex-vitamin C-folic Acid (Eileen-scott) 0.8 mg per tablet 1 tablet 1 tablet Oral Daily Collette Dye MD 1 tablet at 02/18/22 08 ??? heparin (porcine) (5,000 units/1 mL) subcutaneous injection 5,000 Units 5,000 Units [id number] [facility] Collette Dye MD 5,000 Units at 02/18/22 1420 ??? vancomycin (Vancocin) capsule 125 mg 125 mg Oral BID Collette Dye MD 125 mg at 02/18/22 08 ??? lactulose (Chronulac) (0.67 gram/mL) oral liquid 20 g 20 g Oral BID PRN Collette Dye MD ??? alteplase (Cathflo) injection 1-4 mg 1-4 mL INTRA-CATHETER Once in dialysis PRN Collette Dye MD 2.4 mg at 02/07/22 0520 ??? senna-docusate (Pericolace) 8.6-50 mg per tablet 2 tablet 2 tablet Oral BID Collette Dye MD2 tablet at 02/18/22 08 ??? folic acid (Folvite) tablet 1,000 mcg 1,000 mcg Oral Daily Collette Dye MD 1,000 mcg at 02/18/22 08 ??? thiamine (Vitamin B1) tablet 100 mg 100 mg Oral Daily Collette Dye MD 100 mg at 02/18/22 08 ??? acetaminophen (Tylenol) tablet 1,000 mg 1,000 mg Oral Q8H [facility] Collette Dye MD 1,000 mg at 02/18/22 1420 Recent Results (from the past 18 hour(s)) Magnesium Collection Time: 02/18/22 4:01 AM Result Value Ref Range Magnesium 0.79 0.69 - 1.07 mmol/L Phosphorus Collection Time: 02/18/22 4:01 AM Result Value Ref Range Phosphorus 4.9 (H) 2.5 - 4.5 mg/dL Basic Metabolic Panel (non-fasting) Collection Time: 02/18/22 4:01 AM Result Value Ref Range Glucose Lvl 98 65 - 199 mg/dL BUN 36 (H) 10 - 20 mg/dL Creatinine 3.80 (H) 0.80 - 1.50 mg/dL Sodium 132 (L) 135 - 145 mmol/L Potassium 4.3 3.5 - 5.0 mmol/L Chloride 97 (L) 98 - 107 mmol/L CO2 28 22 - 31 mmol/L Anion Gap 7 5 - 15 mmol/L Calcium 7.9 (L) 8.5 - 10.5 mg/dL Estimated GFR 21 (L) >=60 mL/min/1.73 m?? Hemogram Collection Time: 02/18/22 4:01 AM Result Value Ref Range WBC 15.2 (H) 4.0 - 9.5 x10(3)/mcL RBC 2.44 (L) 4.58 - 5.54 x10(6)/mcL Hemoglobin 7.0 (L) 13.7 - 16.5 g/dL Hematocrit 22.0 (L) 40.5 - 48.5 % MCV 90.2 82.9 - 93.1 fL MCH 28.7 27.5 - 32.1 pg MCHC 31.8 (L) 32.0 - 35.7 g/dL Platelets 325 145 - 357 x10(3)/mcL RDWSD 51.1 (H) 36.0 - 45.0 fL RDWCV 15.5 (H) 11.4 - 13.8 % MPV 8.8 7.6 - 12.9 fL nRBC % Auto 0.0 % nRBC Abs Auto 0.000 0.000 - 0.000 x10(3)/mcL Differential, Automated Collection Time: 02/18/22 4:01 AM Result Value Ref Range Neutrophils % 70.4 % Neutr Abs (ANC) 10.70 (H) 1.70 - 6.10 x10(3)/mcL Lymphocytes % 8.0 % Lymphocytes Abs 1.2 0.9 - 3.2 x10(3)/mcL Monocytes % 7.7 % Monocyte Abs 1.2 (H) 0.3 - 0.9 x10(3)/mcL Eosinophils % 3.2 % Eosinophils Abs 0.5 (H) 0.0 - 0.4 x10(3)/mcL Basophils % 0.4 % Basophils Abs 0.1 0.0 - 0.1 x10(3)/mcL Immature Gran % 10.30 % Gemini Gran Abs 1.56 (H) 0.00 - 0.04 x10(3)/mcL Scan, Peripheral Blood Collection Time: 02/18/22 4:01 AM Result Value Ref Range Plat Estimate Normal RBC Morphology Abnormal Ovalocytes 1-5 /HPF Stippled RBCs Present >1/HPF Vidhya Peñaloza #[id number] Dai Duarte, OT - 02/18/2022 2:48 PM EDT Occupational Therapy Treatment Note Treatment Number OT: 3 Patient Dx: Alix Holland is a 31 y.o. male admitted on 01/23/2022 after being found down and encephalopathic by family with verbal reports of Fentanyl ingestion; this was followed by witnessed in-hospital [place] cardiac arrest at the receiving ED (hyperkalemia at the time). He was also noted to have severe rhabdomyolysis with compartment syndrome and resultant ALTHEA. Now??s/p??fasciotomies of L thigh, calf forearm and wrist??(01/23)??and??I+D LUE, LLE??(01/26). Previously completed treatment??for aspiration pneumonia versus MSSA CAP. He was also found to have asymptomatic COVID19 infection in admission testing. Scattered punctate infarcts on MR brain and CT COW/carotids from 01/24/22 read as normal.??Neurology believes??MRI findings are related to toxometabolic issues rather than a stroke.??Extubated PM of 01/26/22??and remains on room air. Procedures: 02/06: IR embolization of SGA pseudoaneurysm 02/06: LLE hematoma evacuation and washout 02/08: washout and debridement LLE, vac change LUE ?? Social History: Patient lives in [place], [place] with his dad. Home Setup: 2 [address], 2 level home, bedroom on 1st level, bathroom available on 1st level, has a tub shower downstairs. DME: none Baseline ADL/Mobility: Pt reports he was independent w/ ADL's and IADL's, had worked for a [employer] company. He enjoys hunting and fishing. He reports he likes country music ?? Interval History: (Per MD note): NAEO Precautions/Special Considerations: SOAP/WATER; At risk to fall, flexiseal, L UE and L LE NWB; L forearm wound vac; HAND STRIPER; Femoral A-line S: Ill try it I guess. O: Patient seen for skilled OT treatment, and demonstrated the following: ?? Self-care: ?? Bathing: Seated in chair poistion in bed, able to wash face and UB with s/u and cueing ?? Grooming: s/u in bed with cues to use RUE to start participating more with self care ?? Dressing: NT ?? Toileting: Flexiseal in place ?? Functional Mobility: ?? Max/mod A supine>EOB using RUE ?? Fair seated balance at EOB, Min A initially then progressing to CGA for ~5 min ?? Discussed starting to be lifted DAILY to recliner chair with nursing staff, patient agreed. ?? Max A sit>supine ?? Mod A to roll L<>R for johnny care with leaking flexiseal ?? Placed into chair position in bed, all needs met, call starks within reach ?? Cognition: ?? Behavior / Mood: awake, alert, flat affect, agreeable ?? Alert and oriented to: person, date, place, situation ?? Follows commands: 1 step, 100% of the time, requires increased time and requires repetition ?? Attention: distractible ?? Safety awareness: decreased insight into deficits and mild impairment ?? Vision: ?? BP: 148/106; Sp02 99% on RA ?? HR ranging from 110-125 throughout session RN aware ?? Vitals: WFL Pain: 8/10 to LLE Education: Pt/family/caregiver education ongoing regarding: Role of occupational therapy/rehabilitation, ADL, Exercise, Positioning, Precautions/Protocol, Functional Mobility, Balance, Recommendations and Discharge planning. Staff Communication: Patient status, treatment, and mobility recommendations discussed with nursing/other staff ASSESSMENT: Patient was seen for an OT session per POC. Upon OT arrival, patient was alert, orientedx 4 and willing to participate. Able to sit EOB for a brief period of time and partpcate with some self care. Encouraged him to start participating more with self care and be lifted to the recliner chair DAILY with nursing staff, he was in agreement. His PLOF includes independence with ADL/IADL tasks,therefore, will benefit from a rehab stay. Pt will benefit from ongoing therapeutic interventions toachieve pt's and therapy goals Anticipated Discharge Disposition (OT): acute rehabilitation facility Equipment Needs Upon Discharge (OT): to be determined Other Recommendations: ?? Utilize upright chair position using bed features or transfer to recliner chair as appropriate with mechanical lift (Once bedrest orders have been lifted) ?? Encourage participation in ADL's by providing set up A on tray table and physical assist only as needed. ?? Monitor ROM of R fingers (encourage active and passive flexion and extension of fingers) ?? General Recommendations for Patients with Confusion: Commode/bathroom for toileting when able to do so safely Utilize upright chair position using bed features or transfer to recliner chair as appropriate. Encourage participation in ADL's by providing set up A on tray table and physical assist only as needed Lights on blinds open during day Goals: To be achieved within 2 weeks, by 02/12/22: 1. Patient will consistently be oriented x 4 and CAM (-). MET 2. Patient will complete grooming tasks seated with setup only. 3. Patient will be min A for UB sponge bath in supported sitting. 4. Patient will sit EOB w/ min A as needed to progress functional transfers (? slideboard vs stand pivot) (Once orders are updated) 5. Patient will be min A for self-feeding as appropriate in supported sitting w/ setup.MET Therapy Frequency (OT): 2-4 times/wk Total Minutes, Occupational Therapy: 60 (tef x4 [id number]) Pager: [phone] AMA QURSEHI, PEG Occupational Therapy Rehabilitation Department *POC reviewed between PEG/OTR. Patient is now activity as tolerated with BUE/LE WBAT. See updated goals below. Dai Duarte OTR/L Pager [phone] Goals updated & extended to 03/08/22: -Patient will don/doff UB clothing with supervision seated -Patient will don/doff LB clothing with Min A, seated, with AE, as needed -Patient will complete toileting tasks (hygiene, clothing management, transfers) with Min A and withAE, as needed -Patient will ambulate household distances with CGA and with AD, as needed -Patient will complete UB/LB sponge bathing tasks with supervision, while seated with AE, as needed -Patient will complete grooming task (comb hair, brush teeth, shave) with supervision Melissa Gonzales MD - 02/18/2022 11:37 AM EDT Acute Care Surgery Daily Progress Note Admission Date: 01/23/2022 ID: Alix Holland is a 31 y.o. male with HTN, angioedema requiring intubation 04/21, GERD, gastritis, esophagitis, urachal cyst, and polysubstance use (EtOH, cocaine, heroin) who was admitted to the MICU 01/23/2022 s/p [place] arrest in the setting of being found down following fentanyl overdose and developing L forearm and L thigh compartment syndrome (s/p L forearm, L buttock, and L thigh fasciotomies) w/ subsequent rhabdomyolysis, renal failure, and hyperkalemia which required CVVH. He was transitioned to iHD and transferred to floor status 02/02, however he had persistent daily transfusion requirement from ongoing wound vac bleeding and returned to the OR x2 (02/04 and 02/05) for irrigation and debridement of fasciotomy wounds, however no focal source of bleeding was identified. He was transferred to the SICU 02/05 after L thigh wound vac filled with alexsandra blood and hgb dropped to 4.6 despite 6U pRBC. He went to IR for embolization of SGA pseudoaneurysm and to the OR for hematoma washout on 02/06. He returned to the OR for washout and debridement again on 02/08 and 02/09. He was subsequently lateralized to the ACS service and transferred to floor status on 02/10. His hospital course has also been notable for asymptomatic COVID-19 infection, C. 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 Procedures: 01/23: L thigh fasciotomy, L lower leg fasciotomy, L buttock fasciotomy, L forearm fasciotomy 01/26: Debridements and wound vac change 01/29: Debridement of fasciotomies, closure of L lower leg fasciotomy, closure of dorsal forearm fasciotomy, partial closure L thigh fasciotomy 01/31: Debridement and wound vac change 02/02: Debridement and wound vac change 02/04: Debridement and wound vac change 02/05: Debridement and wound vac change, 02/06: IR embolization of SGA pseudoaneurysm 02/06: LLE hematoma evacuation and washout 02/08: washout and debridement LLE, vac change LUE 02/09: washout and debridement LLE with vac placement 02/11: washout and vac change, LLE and LUE 02/13: washout and vac change, LLE and LUE 02/15: washout and vac change, LLE and LUE, possible drainage of L gluteal abscess Subjective Interval Events: - No acute events overnight Objective Vitals: Last Value Range last 24 hrs Temperature Temp: 36.8 ??C (98.2 ??F) Temp: [36.8 ??C (98.2 ??F)-37.3 ??C (99.1 ??F)] Heart Rate Heart Rate: (!) 107 Heart Rate: [107-125] Blood Pressure BP: (!) 147/94 BP: (130-156)/(89-103) Respiratory Rate Resp: 17 Resp: [16-18] SpO2 SpO2: 97 % SpO2: [97 %-100 %] O2 Device O2 Device: None (Room air) Intake/Output: 02/17 0701 - 02/18 0700 In: 690 [P.O.:550; I.V.:40] Out: 3560 [Urine:700] Physical Exam: GEN: resting comfortably in bed, pleasant, conversant, NAD HEENT: normocephalic, atraumatic CHEST: comfortable work of breathing on RA CV: regular rate, well perfused ABD: soft, nontender, nondistended EXTR: moving spontaneously, no edema; L thigh wound vac in place, holding suction; L forearm wound vac in place, holding suction SKIN: WWP NEURO: AOx3, follows commands Labs: Recent Labs 02/18/22 0401 02/17/22 0340 02/16/22 0405 WBC 15.2* 17.0* 19.0* HGB 7.0* 7.1* 7.3* HCT 22.0* 22.2* 22.3* PLATELET 325 316 296 Recent Labs 02/18/22 0401 02/17/22 0340 02/16/22 0405 NA 132* 130* 128* K 4.3 4.5 4.4 CL 97* 96* 95* CO2 28 24 26 BUN 36* 51* 35* CREATININE 3.80* 5.07* 3.65* GLUCOSE 98 101 94 CALCIUM 7.9* 7.8* 7.7* MAGNESIUM 0.79 0.86 0.83 PHOS 4.9* 5.7* 4.5 C Diff Screen Date Value Ref Range Status 02/01/2022 Positive (A) Negative Final Comment: PCR Pos C. diff?? Positive (GDH positive, toxin antigen negative, toxin PCR positive) DNA from a toxigenic strain of C. difficile was detected, although the free toxin itself was not detected.?? These results cannot distinguish between colonization and infection. They must be interpreted within the patient???s overall clinical context. Consider other causes for diarrhea or the presence of a non-toxigenic strain. Patient needs to remain on Soap & Water Contact Precautions until discharge or approval by Infection Prevention. Abscess/Wound Aspirate Culture Date Value Ref Range Status 02/17/2022 (A) Final One colony of Serratia marcescens : Susceptibilities previously reported One colony of Pseudomonas aeruginosa : Susceptibilities previously reported 02/17/2022 (A) Final One colony of Serratia marcescens : Susceptibilities previously reported 02/15/2022 (A) Final Few Serratia marcescens Rare Pseudomonas aeruginosa Rare mixed bacterial morphotypes suggestive of normal cutaneous yessy Anaerobic Culture Date Value Ref Range Status 02/15/2022 No anaerobic organisms isolated to date Final 02/09/2022 No anaerobic organisms isolated Final 02/08/2022 No anaerobic organisms isolated Final 02/08/2022 No anaerobic organisms isolated Final Tissue Culture Date Value Ref Range Status 02/09/2022 (A) Final Few Pseudomonas aeruginosa Few Serratia marcescens Susceptibilities previously reported Blood Culture Date Value Ref Range Status 02/06/2022 No growth at 5 days. Final 02/05/2022 No growth at 5 days. Final 02/01/2022 No growth at 5 days. Final Studies: 02/11/2022 MR Brain: IMPRESSION Evolution of bilateral globi pallidi injury. Question subtle developing deep white matter changes. Mild increased caliber of the ventricular system which may reflect reduced edema. or volume loss secondary to recent toxic metabolic insult. 02/13 CT A/P: IMPRESSION 1. No evidence of deep intra-abdominal infection. 2. Status post coiling of the LEFT superior gluteal artery and LEFT lateral thigh fasciotomy. 3. Suspect incomplete clearing of the LEFT medial gluteal abscess. 4. Ill-defined, likely abscess involving the LEFT abductor jorge muscle 8 x 4.5 x 3.5 cm. MRI may be beneficial in further characterization. 5. Anasarca 6. RIGHT basilar pleural effusions and underlying airspace consolidations. atelectasis versus pneumonitis. 02/13 CT Femur: IMPRESSION 1. No evidence of deep intra-abdominal infection. 2. Status post coiling of the LEFT superior gluteal artery and LEFT lateral thigh fasciotomy. 3. Suspect incomplete clearing of the LEFT medial gluteal abscess. 4. Ill-defined, likely abscess involving the LEFT abductor jorge muscle 8 x 4.5 x 3.5 cm. MRI may be beneficial in further characterization. 5. Anasarca 6. RIGHT basilar pleural effusions and underlying airspace consolidations, atelectasis versus pneumonitis. 02/13 KUB: IMPRESSION No obstruction. No perforation. Assessment and Plan Alix Holland is a 31 y.o. male with HTN, angioedema requiring intubation 04/21, GERD, gastritis, esophagitis, urachal cyst, and polysubstance use (EtOH, cocaine, heroin) who was admitted 01/23/2022 forcompartment syndrome and rhabdomyalysis after being found down. He is now s/p multiple fasciotomies and debridements of LLE and L forearm. Mr. Holland has had a prolonged, complicated hospital course which has been significant for renal replacement therapy secondary to rhabdomyolysis, ICU admissions, multiple debridements, and persistent transfusion requirement. He was transferred to the floor 02/10 and appears to be slowly progressing towards recovery. Plan for him to go to the OR again tomorrow 02/19 for washout and wound VAC change. Will likely require ongoing washouts and wound VAC changes in the OR. His wound cultures are growing Pseudomonas and Serratia for which he has been covered with by Zosyn.ID consulted 02/11. Zosyn discontinued and transitioned to cefepime per their recs. He also has C. difficile for which he is being treated with p.o. vancomycin which we will continue for 10 days following discontinuation of cefepime. ID consulted on 02/17 and they confirmed this plan. He has had a decreasing leukocytosis over the past few days (15.2/17.0/19.0/22.1). His leukocytosis could possibly be related to his C diff infection, however no abd pain per pt. Pt got a KUB and a CT A/P and Femur on 02/13. Results of imaging described above. Nephrology is following for rhabdomyolysis and renal failure. He will continue on iHD per nephrologyrecs. Next HD run planned for 02/18. He is also on a 1.5 L total fluid restriction, which includes both p.o. and IV fluids, due to inability to excrete free water and ongoing hyponatremia. Nephrology updated primary team on 02/15 that they are closely following the patient and that they will update us when their recommendations change. From a nutrition standpoint he has not been reaching his nutrition goals. This is likely due to a multitude of reasons, namely frequently missing meals due to being n.p.o. for q2d debridement and woundVAC changes in the OR, increased requirements due to size of wounds, extra protein losses from dialysis, and limitations on supplemental nutrition modalities given total fluid restriction. Plan: Neuro: #Pain - Scheduled PO Tylenol - Marinol 10mg BID - PO Oxycodone PRN Q4 #Polysubstance abuse, found down following fentanyl ingestion, Toxic metabolic encephalopathy, bilateral globus pallidum infarcts - Thiamine, folate - Q shift neurovascular checks - Neurology consulted 01/23, re-consulted 02/16, no changes to plan --- Expected BG evolution on MRI. No further w/u --- Re-consult neuro closer to d/c for EMG/NCS testing for peripheral neuropathy CV: - Persistent tachycardia, likely d/t increased metabolic demand from wounds and infections - No active interventions, CTM Resp: - Encourage IS, OOB - No active interventions, CTM GI: - Senna-docusate BID FEN: F: fluid restriction per nephrology recs below E: CTM, supplement prn N: Regular diet NPO diet (Give Meds) @ midnight - Nutrition team consulted, appreciate recs --- Not meeting nutrition goals. Needs > 100 g protein/day with iHD and wound vac losses & healing needs --- On Ensure Compact --- Could consider PPN as a nutrition bridge but w/ current fluid restriction, nutrition provisions would be limited Renal/: - No active interventions, CTM - Bladder scans Q8 - Nephrology consulted 01/23, re-consulted 02/15, appreciate recs --- Paged 02/18 about HTN and possible medication regimens- recs pending --- iHD MWF, next session 02/19 --- Fluid restriction 1.5L/day (oral and IV) for mild hyponatremia in setting of HD dependence and unable to excrete water Heme: - No active interventions, CTM - DVT ppx per below - Transfuse for Hgb < 7 ID: - 02/08 and 02/09 wound cx: Pseudomonas, serratia - ID consulted 02/11, re-consulted 02/17, appreciate recs - Cont Cefepime (02/11 - ) - Cont PO Vanc BID for c diff (02/01- ) --- PO vanc to continue x10 days after Cefepime ends - s/p Unasyn (01/23-01/26 and 01/29-02/01), Cefazolin (01/26-01/29 and 02/01-02/07), Zosyn (02/08-02/11) - 02/15 L Thigh wound culture: Pseudomonas, Serratia, Gram positive cocci Endo: - No active interventions, CTM MSK: - s/p multiple fasciotomies 01/23: L thigh fasciotomy (wound vac'd), L gluteal fasciotomy, L lower leg fasciotomy (closed 01/29), L volar forearm fasciotomy (wound vac'd), L dorsal forearm fasciotomy (closed 01/29) - s/p multiple OR debridements and wound vac changes- OR tomorrow 02/19 - Plastics consulted 02/04 ---Saw patient 02/17 in OR, preliminary plan for grafting LUE next week - Wound care consulted for excoriations around penis and rectum, orders placed per recs - Orthopedics reconsulted for non weight bearing status- primary team will be updated after orthopedics assesses the pt again Prophy: Resp: OOB, IS DVT: SQH TID, IPCs, OOB Lines/Drains/Tubes/Airways: - R IJ triple lumen HD catheter - Rectal tube - Ayala d/c'd 02/18 Dispo: - Floor status - PT/OT consulted 01/27, appreciate recs Code Status: Attempt Cardiopulmonary Resuscitation - Inpatient Melissa Gonzales MD 02/18/2022 Acute Care Surgery Team pager [phone] Associated attestation - Gela Novak MD - 02/18/2022 12:46 PM EDT This patient was personally seen and examined on team rounds. I agree with the assessment and plan as discussed. Diagnoses and therapy were explained and all questions were answered. RTOR qMWF for wound care Nutrition PT/OT Gela Novak MD 02/18/2022 12:46 PM Ama Tucker RN - 02/18/2022 5:14 AM EDT OUTCOME EVALUATION NOTE: OUTCOME SUMMARY: A&Ox4. Tachycardic with heart rate between 100-110. Clear lung sounds on room air. Reports 8-9 pain in left hip and leg. PO oxycodone given per SEP with good effect. Numbness/tingling present in LUE and LLE. +2 edema present in LUE and LLE. Flexiseal in place and milked as needed. Patient turned and barrier cream applied to redness on groin, scrotum, and anus. Ayala catheter in place draining adequte clear yellow urine output. Wound vac dressing on LUE and LLE are clean/dry/intact. Both functioning properly at -125mmhg. Fluid restriction followed. PLAN MOVING FORWARD: Dialysis MWF Pain control IV and PO antibiotics Frequent turns INDIVIDUALIZED FALL PREVENTION INTERVENTIONS: Patient-specific fall risk factors per assessment: [current deficits]: Drowsy, lines/drains, narcotics Assistance [level of assistance required for transfers and ambulation]: Dependent, requires 2 peopleto turn Supervision [direct monitoring required during toileting and ADLs]: Hands on Surveillance [continuous indirect monitoring]: Yohan Patient-specific fall prevention interventions for sensory deficits provided, if applicable: [X] Yeslighting adjusted for tasks CPG GOAL OUTCOME EVALUATION: Ongoing Vidhya Peñaloza MD - 02/17/2022 7:55 PM EDT NEPHROLOGY PROGRESS NOTE PATIENT: Alix Holland : 1990 Interval History: Patient had his HD today. No acute event reported on the HD. Patient wanted to sleep today. He states he has been through a lot today (OR followed by HD) and refused physical examination. Of note, he had tachycardia today after return to the room and was given one dose of Metoprolol by the primary team. It was sinus tachycardia per information. EKG can not be seen in the system. I/O last 3 completed shifts: In: 1400 [P.O.:1400] Out: 3935 [Urine:1075; Other:2850; Blood:10] No intake/output data recorded. He is making good urine. However, we would continue to monitor him everyday for the need of HD until the creatinine starts trending down. It is likely that patient is making a recovery from his renal injury. Assessment and Plan: A 31 year old male with PMHx drug abuse, HTN, angioedema, GERD, gastritis, was found to be in V tach cardiac arrest sec to hyperkalemia, severe rhabdomyolysis, in the setting of fentanyl overdose, c/b compartment syndrome, s/p left forearm, L buttock and L thigh fasciotomies, s/p CVVH earlier in the admission, now transitioned to iHD. ?? During this admission, he also had asymptomatic COVID-19 infection which has cleared, C. Diff infection and ischemic hepatitis. - The plan is to continue iHD three times a week, MWF. - The access is examined on the right side. Clean. No tenderness. - Will give EPO with HD. - Patient's hyponatremia has improved following fluid restriction. It will be monitored daily. - Optimize nutrition as mentioned earlier. Patient is significantly hypoalbuminemic. - Tachycardia noted today. Would follow. PHYSICAL EXAM: Last value Temperature Temp: 37.2 ??C (99 ??F) Heart Rate Heart Rate: (!) 117 Blood Pressure BP: (!) 145/102 Respiratory Rate Resp: 17 SpO2 SpO2: 97 % Current Facility-Administered Medications Medication Dose Route Frequency Provider Last Rate Last Admin ??? heparin (porcine) (1,000 units/mL) injection 1,000-10,000 Units 1,000-10,000 Units IntercatheterOnce in dialysis PRN Collette Dye MD ??? metroNIDAZOLE (Flagyl) 500 mg in sodium chloride 0.9% 100 mL infusion 500 mg Intravenous Q8H Collette Dye MD Stopped at 02/17/22 1448 ??? oxyCODONE (Roxicodone) tablet 15 mg 15 mg Oral Q4H PRN Collette Dye MD 15 mg at 02/17/22 1821 Or ??? oxyCODONE (Roxicodone) tablet 10 mg 10 mg Oral Q4H PRN Collette Dye MD ??? heparin (porcine) (1,000 units/mL) injection 1,000-10,000 Units 1,000-10,000 Units IntercatheterOnce in dialysis PRN Collette Dye MD ??? dronabinoL (Marinol) capsule 10 mg 10 mg Oral BID Collette Dye MD 10 mg at 02/17/22 1414 ??? ceFEPime (Maxipime) 1g vial attach to sodium chloride 0.9% 100 mL Mini-Bag Plus 1 g Intravenous Q24H Collette Dye MD Stopped at 02/17/22 0901 ??? ascorbic acid (Vitamin C) (Vitamin C) tablet 250 mg 250 mg Oral Daily Collette Dye MD 250 mg at 02/17/22 1414 ??? miconazole nitrate (Remedy Phytoplex) 2 % ointment Topical (Top) BID Collette Dye MD Given at 02/17/22 0900 ??? vitamin B Complex-vitamin C-folic Acid (Eileen-scott) 0.8 mg per tablet 1 tablet 1 tablet Oral Daily Collette Dye MD 1 tablet at 02/17/22 1417 ??? heparin (porcine) (5,000 units/1 mL) subcutaneous injection 5,000 Units 5,000 Units [id number] Collette Zacarias MD 5,000 Units at 02/17/22 1417 ??? vancomycin (Vancocin) capsule 125 mg 125 mg Oral BID Collette Dye MD 125 mg at 02/17/22 1416 ??? lactulose (Chronulac) (0.67 gram/mL) oral liquid 20 g 20 g Oral BID PRN Collette Dye MD ??? alteplase (Cathflo) injection 1-4 mg 1-4 mL INTRA-CATHETER Once in dialysis PRN Collette Dye MD 2.4 mg at 02/07/22 0520 ??? senna-docusate (Pericolace) 8.6-50 mg per tablet 2 tablet 2 tablet Oral BID Collette Dye MD2 tablet at 02/17/22 1416 ??? folic acid (Folvite) tablet 1,000 mcg 1,000 mcg Oral Daily Collette Dye MD 1,000 mcg at 02/17/22 1415 ??? thiamine (Vitamin B1) tablet 100 mg 100 mg Oral Daily Collette Dye MD 100 mg at 02/17/22 1416 ??? acetaminophen (Tylenol) tablet 1,000 mg 1,000 mg Oral Q8H Collette Zacarias MD 1,000 mg at 02/17/22 1413 Recent Results (from the past 18 hour(s)) Magnesium Collection Time: 02/17/22 3:40 AM Result Value Ref Range Magnesium 0.86 0.69 - 1.07 mmol/L Phosphorus Collection Time: 02/17/22 3:40 AM Result Value Ref Range Phosphorus 5.7 (H) 2.5 - 4.5 mg/dL Basic Metabolic Panel (non-fasting) Collection Time: 02/17/22 3:40 AM Result Value Ref Range Glucose Lvl 101 65 - 199 mg/dL BUN 51 (H) 10 - 20 mg/dL Creatinine 5.07 (H) 0.80 - 1.50 mg/dL Sodium 130 (L) 135 - 145 mmol/L Potassium 4.5 3.5 - 5.0 mmol/L Chloride 96 (L) 98 - 107 mmol/L CO2 24 22 - 31 mmol/L Anion Gap 10 5 - 15 mmol/L Calcium 7.8 (L) 8.5 - 10.5 mg/dL Estimated GFR 15 (L) >=60 mL/min/1.73 m?? Hemogram Collection Time: 02/17/22 3:40 AM Result Value Ref Range WBC 17.0 (H) 4.0 - 9.5 x10(3)/mcL RBC 2.46 (L) 4.58 - 5.54 x10(6)/mcL Hemoglobin 7.1 (L) 13.7 - 16.5 g/dL Hematocrit 22.2 (L) 40.5 - 48.5 % MCV 90.2 82.9 - 93.1 fL MCH 28.9 27.5 - 32.1 pg MCHC 32.0 32.0 - 35.7 g/dL Platelets 316 145 - 357 x10(3)/mcL RDWSD 51.5 (H) 36.0 - 45.0 fL RDWCV 15.7 (H) 11.4 - 13.8 % MPV 9.0 7.6 - 12.9 fL nRBC % Auto 0.0 % nRBC Abs Auto 0.000 0.000 - 0.000 x10(3)/mcL Differential, Automated Collection Time: 02/17/22 3:40 AM Result Value Ref Range Neutrophils % 66.7 % Neutr Abs (ANC) 11.34 (H) 1.70 - 6.10 x10(3)/mcL Lymphocytes % 8.6 % Lymphocytes Abs 1.5 0.9 - 3.2 x10(3)/mcL Monocytes % 6.6 % Monocyte Abs 1.1 (H) 0.3 - 0.9 x10(3)/mcL Eosinophils % 3.9 % Eosinophils Abs 0.7 (H) 0.0 - 0.4 x10(3)/mcL Basophils % 0.5 % Basophils Abs 0.1 0.0 - 0.1 x10(3)/mcL Immature Gran % 13.70 % Gemini Gran Abs 2.33 (H) 0.00 - 0.04 x10(3)/mcL Abscess/Wound Aspirate Culture Collection Time: 02/17/22 8:35 AM Specimen: Thigh, Left; Deep Wound left superior thigh wound Result Value Ref Range Gram Stain Moderate Neutrophils seen No microorganisms seen. Abscess/Wound Aspirate Culture Collection Time: 02/17/22 8:35 AM Specimen: Thigh, Left; Deep Wound Left lateral thigh wound Result Value Ref Range Gram Stain Moderate Neutrophils No microorganisms seen. Vidhya Peñaloza #[id number] Associated attestation - Bambi Pressley MD - 02/17/2022 10:59 PM EDT I saw and examined this patient with the renal fellow, Dr. Peñaloza, and I agree with the assessment andrecommendations as documented. Uneventful HD today for ~3L UF. Mod edema legs. Patient continues to be supplied with drinks and snacks from his dad who is trying to support patient and improve his spirits but unfortunately is not providing the healthiest choices (such as coca cola and gold fish). Zeniave met with RD. I encouraged patient to avoid dark sodas and preserved/baked snacks due to phos load and to limit dairy. Remains hd dependent despite improved uo. Melissa Gonzales MD - 02/17/2022 3:22 PM EDT Acute Care Surgery Daily Progress Note Admission Date: 01/23/2022 ID: Alix Holland is a 31 y.o. male with HTN, angioedema requiring intubation 04/21, GERD, gastritis, esophagitis, urachal cyst, and polysubstance use (EtOH, cocaine, heroin) who was admitted to the MICU 01/23/2022 s/p VT arrest in the setting of being found down following fentanyl overdose and developing L forearm and L thigh compartment syndrome (s/p L forearm, L buttock, and L thigh fasciotomies) w/ subsequent rhabdomyolysis, renal failure, and hyperkalemia which required CVVH. He was transitioned to iHD and transferred to floor status 02/02, however he had persistent daily transfusion requirement from ongoing wound vac bleeding and returned to the OR x2 (02/04 and 02/05) for irrigation and debridement of fasciotomy wounds, however no focal source of bleeding was identified. He was transferred to the SICU 02/05 after L thigh wound vac filled with alexsandra blood and hgb dropped to 4.6 despite 6U pRBC. He went to IR for embolization of SGA pseudoaneurysm and to the OR for hematoma washout on 02/06. He returned to the OR for washout and debridement again on 02/08 and 02/09. He was subsequently lateralized to the ACS service and transferred to floor status on 02/10. His hospital course has also been notable for asymptomatic COVID-19 infection, C. 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 Procedures: 01/23: L thigh fasciotomy, L lower leg fasciotomy, L buttock fasciotomy, L forearm fasciotomy 01/26: Debridements and wound vac change 01/29: Debridement of fasciotomies, closure of L lower leg fasciotomy, closure of dorsal forearm fasciotomy, partial closure L thigh fasciotomy 01/31: Debridement and wound vac change 02/02: Debridement and wound vac change 02/04: Debridement and wound vac change 02/05: Debridement and wound vac change, 02/06: IR embolization of SGA pseudoaneurysm 02/06: LLE hematoma evacuation and washout 02/08: washout and debridement LLE, vac change LUE 02/09: washout and debridement LLE with vac placement 02/11: washout and vac change, LLE and LUE 02/13: washout and vac change, LLE and LUE 02/15: washout and vac change, LLE and LUE, possible drainage of L gluteal abscess Subjective Interval Events: - No acute events overnight Objective Vitals: Last Value Range last 24 hrs Temperature Temp: 37.2 ??C (99 ??F) Temp: [36.3 ??C (97.3 ??F)-37.3 ??C (99.1 ??F)] Heart Rate Heart Rate: (!) 125 Heart Rate: [87-125] Blood Pressure BP: (!) 130/91 BP: (130-159)/(89-108) Respiratory Rate Resp: 18 Resp: [9-18] SpO2 SpO2: 97 % SpO2: [96 %-100 %] O2 Device O2 Device: None (Room air) Intake/Output: 02/16 0701 - 02/17 0700 In: 1100 [P.O.:1100] Out: 375 [Urine:375] Physical Exam: GEN: resting comfortably in bed, pleasant, conversant when engaged, NAD HEENT: normocephalic, atraumatic CHEST: comfortable work of breathing on RA CV: regular rate, well perfused ABD: soft, nontender, nondistended EXTR: moving spontaneously, no edema; L thigh wound vac in place, holding suction; L forearm wound vac in place, holding suction SKIN: WWP NEURO: AOx3, sleepy and dozing off during conversation, follows commands Labs: Recent Labs 02/17/22 0340 02/16/22 0405 02/15/22 0350 WBC 17.0* 19.0* 22.1* HGB 7.1* 7.3* 7.2* HCT 22.2* 22.3* 21.3* PLATELET 316 296 254 Recent Labs 02/17/22 03402/16/22 0405 02/15/22 0350 NA 130* 128* 126* K 4.5 4.4 4.8 CL 96* 95* 92* CO2 24 26 23 BUN 51* 35* 62* CREATININE 5.07* 3.65* 5.16* GLUCOSE 101 94 91 CALCIUM 7.8* 7.7* 7.5* MAGNESIUM 0.86 0.83 0.82 PHOS 5.7* 4.5 5.7* C Diff Screen Date Value Ref Range Status 02/01/2022 Positive (A) Negative Final Comment: PCR Pos C. diff?? Positive (GDH positive, toxin antigen negative, toxin PCR positive) DNA from a toxigenic strain of C. difficile was detected, although the free toxin itself was not detected.?? These results cannot distinguish between colonization and infection. They must be interpreted within the patient???s overall clinical context. Consider other causes for diarrhea or the presence of a non-toxigenic strain. Patient needs to remain on Soap & Water Contact Precautions until discharge or approval by Infection Prevention. Abscess/Wound Aspirate Culture Date Value Ref Range Status 02/15/2022 (A) Final Few Serratia marcescens Rare Pseudomonas aeruginosa Rare mixed bacterial morphotypes suggestive of normal cutaneous yessy 02/08/2022 (A) Final Many Pseudomonas aeruginosa Many Serratia marcescens Susceptibilities previously reported 02/08/2022 (A) Final Many Pseudomonas aeruginosa Many Serratia marcescens Anaerobic Culture Date Value Ref Range Status 02/15/2022 No anaerobic organisms isolated to date Final 02/09/2022 No anaerobic organisms isolated Final 02/08/2022 No anaerobic organisms isolated Final 02/08/2022 No anaerobic organisms isolated Final Tissue Culture Date Value Ref Range Status 02/09/2022 (A) Final Few Pseudomonas aeruginosa Few Serratia marcescens Susceptibilities previously reported Blood Culture Date Value Ref Range Status 02/06/2022 No growth at 5 days. Final 02/05/2022 No growth at 5 days. Final 02/01/2022 No growth at 5 days. Final Studies: 02/11/2022 MR Brain: IMPRESSION Evolution of bilateral globi pallidi injury. Question subtle developing deep white matter changes. Mild increased caliber of the ventricular system which may reflect reduced edema. or volume loss secondary to recent toxic metabolic insult. 02/13 CT A/P: IMPRESSION 1. No evidence of deep intra-abdominal infection. 2. Status post coiling of the LEFT superior gluteal artery and LEFT lateral thigh fasciotomy. 3. Suspect incomplete clearing of the LEFT medial gluteal abscess. 4. Ill-defined, likely abscess involving the LEFT abductor jorge muscle 8 x 4.5 x 3.5 cm. MRI may be beneficial in further characterization. 5. Anasarca 6. RIGHT basilar pleural effusions and underlying airspace consolidations. atelectasis versus pneumonitis. 02/13 CT Femur: IMPRESSION 1. No evidence of deep intra-abdominal infection. 2. Status post coiling of the LEFT superior gluteal artery and LEFT lateral thigh fasciotomy. 3. Suspect incomplete clearing of the LEFT medial gluteal abscess. 4. Ill-defined, likely abscess involving the LEFT abductor jorge muscle 8 x 4.5 x 3.5 cm. MRI may be beneficial in further characterization. 5. Anasarca 6. RIGHT basilar pleural effusions and underlying airspace consolidations, atelectasis versus pneumonitis. 02/13 KUB: IMPRESSION No obstruction. No perforation. Assessment and Plan Alix Holland is a 31 y.o. male with HTN, angioedema requiring intubation 04/21, GERD, gastritis, esophagitis, urachal cyst, and polysubstance use (EtOH, cocaine, heroin) who was admitted 01/23/2022 forcompartment syndrome and rhabdomyalysis after being found down. He is now s/p multiple fasciotomies and debridements of LLE and L forearm. Mr. Holland has had a prolonged, complicated hospital course which has been significant for renal replacement therapy secondary to rhabdomyolysis, ICU admissions, multiple debridements, and persistent transfusion requirement. He was transferred to the floor 02/10 and appears to be slowly progressing towards recovery. Plan for him to go to the OR again today 02/17 for washout and wound VAC change. Will likely require ongoing washouts and wound VAC changes in the OR. His wound cultures are growing Pseudomonas and Serratia for which he has been covered with by Zosyn.ID consulted 02/11. Zosyn discontinued and transitioned to cefepime per their recs. He also has C. difficile for which he is being treated with p.o. vancomycin which we will continue for 10 days following discontinuation of cefepime. ID consulted today (02/17) and they confirmed this plan. He has had a decreasing leukocytosis over the past few days (17.0/19.0/22.1/23.1). His leukocytosis could possiblybe related to unresolving C diff infection, however no abd pain per pt. Pt got a KUB and a CT A/P and Femur on 02/13. Results of imaging described above. Nephrology is following for rhabdomyolysis and renal failure. He will continue on iHD per nephrologyrecs. Next HD run planned for today, 02/17. He is also on a 1.5 L total fluid restriction, which includes both p.o. and IV fluids, due to inability to excrete free water and ongoing hyponatremia. Nephrology updated primary team today (02/15) that they are closely following the patient and that they willupdate us when their recommendations change. From a nutrition standpoint he has not been reaching his nutrition goals. This is likely due to a multitude of reasons, namely frequently missing meals due to being n.p.o. for q2d debridement and woundVAC changes in the OR, increased requirements due to size of wounds, extra protein losses from dialysis, and limitations on supplemental nutrition modalities given total fluid restriction. Plan: Neuro: #Pain - Scheduled PO Tylenol - Marinol 10mg BID - PO Oxycodone PRN Q4 #Polysubstance abuse, found down following fentanyl ingestion, Toxic metabolic encephalopathy, bilateral globus pallidum infarcts - Thiamine, folate - Q shift neurovascular checks - Neurology consulted 01/23, re-consulted 02/16, no changes to plan --- Expected BG evolution on MRI. No further w/u --- Re-consult neuro closer to d/c for EMG/NCS testing for peripheral neuropathy CV: - Persistent tachycardia, likely d/t increased metabolic demand from wounds and infections - No active interventions, CTM Resp: - Encourage IS, OOB - No active interventions, CTM GI: - Senna-docusate BID FEN: F: fluid restriction per nephrology recs below E: CTM, supplement prn N: Regular diet - Nutrition team consulted, appreciate recs --- Not meeting nutrition goals. Needs > 100 g protein/day with iHD and wound vac losses & healing needs --- On Ensure Compact --- Could consider PPN as a nutrition bridge but w/ current fluid restriction, nutrition provisions would be limited Renal/: - No active interventions, CTM - Bladder scans Q8 - Nephrology consulted 01/23, re-consulted 02/15, appreciate recs --- iHD MWF --- Fluid restriction 1.5L/day (oral and IV) for mild hyponatremia in setting of HD dependence and unable to excrete water - Ferritin lab ordered per Nephrology team request (02/17) Heme: - No active interventions, CTM - DVT ppx per below - Transfuse for Hgb < 7 ID: - 02/08 and 02/09 wound cx: Pseudomonas, serratia - ID consulted 02/11, re-consulted 02/17, appreciate recs - Cont Cefepime (02/11 - ) - Cont PO Vanc BID for c diff (02/01- ) --- PO vanc to continue x10 days after Cefepime ends - s/p Unasyn (01/23-01/26 and 01/29-02/01), Cefazolin (01/26-01/29 and 02/01-02/07), Zosyn (02/08-02/11) - 02/15 L Thigh wound culture: Pseudomonas, Serratia, Gram positive cocci Endo: - No active interventions, CTM MSK: - s/p multiple fasciotomies 01/23: L thigh fasciotomy (wound vac'd), L gluteal fasciotomy, L lower leg fasciotomy (closed 01/29), L volar forearm fasciotomy (wound vac'd), L dorsal forearm fasciotomy (closed 01/29) - s/p multiple OR debridements and wound vac changes- OR today (02/17) - Plastics consulted 02/04 ---Saw patient 02/17 in OR, preliminary plan for grafting LUE next week - Wound care consulted for excoriations around penis and rectum, orders placed per recs - Orthopedics reconsulted for non weight bearing status- told primary team that while R leg is cleared for weight bearing, LLE and LUE need to have wound vacs off before possibility to come off of non-weight bearing status Prophy: Resp: OOB, IS DVT: SQH TID, IPCs, OOB Lines/Drains/Tubes/Airways: - R IJ triple lumen HD catheter - Rectal tube - Ayala (to be d/c'd 02/18) Dispo: - Floor status - PT/OT consulted 01/27, appreciate recs Code Status: Attempt Cardiopulmonary Resuscitation - Inpatient Melissa Gonzales MD 02/17/2022 Acute Care Surgery Team pager [phone] Associated attestation - Gela Novak MD - 02/17/2022 4:05 PM EDT This patient was personally seen and examined on team rounds. I agree with the assessment and plan as discussed. Diagnoses and therapy were explained and all questions were answered. RTOR for wound care Nutrition Gela Novak MD 02/17/2022 4:05 PM Melissa Gonzales MD - 02/17/2022 2:45 PM EDT Acute Care Surgery Post-Operative Progress Note Alix Holland 02/17/2022 Surgery/Issue: Procedure(s): DEBRIDEMENT SKIN AND SUBCU, LOWER EXTREMITY (WRVU 1.01) DRESSING CHANGE (FOR OTHER THAN GALLOWAY) UNDER ANES., UPPER EXTREMITY (WRVU 0.86) MODIFIER WOUND VAC Attending: Kaylie Armstrong Date of surgery: 02/17/2022 Findings: 1. Left forearm wound vac removed with one black sponge, measured 22 cm in length, 9 cm wide, 3mm deep with good granulation tissue, some exposed tendon, one black sponge placed 2. Left thigh wound vac removed with two sponges, the wound tunneled posteriorly, no further purulent pockets unroofed, wound measured 53cm length x15cm wide and 8cm deep with 12cm of posterior tunneling, wound vac replaced with two black sponges 3. Four horizontal mattress sutures placed at superior aspect of LLE wound Subjective/Events: Pt was seen and examined. Pain well controlled. Denies nausea, vomiting, chest pain, shortness of breath, numbness/weakness. Pt was tachy to the 120s. Decreasing while in room with pt. Closely monitoring. Objcetive: Temp: [36.3 ??C (97.3 ??F)-37.3 ??C (99.1 ??F)] Heart Rate: [87-125] Resp: [9-18] BP: (130-159)/(89-108) Intake/Output Summary (Last 24 hours) at 02/17/2022 1504 Last data filed at 02/17/2022 1323 Gross per 24 hour Intake 240 ml Output 3235 ml Net -2995 ml Lab Results Component Value Date NA 130 (L) 02/17/2022 K 4.5 02/17/2022 CL 96 (L) 02/17/2022 CO2 24 02/17/2022 BUN 51 (H) 02/17/2022 CREATININE 5.07 (H) 02/17/2022 GLUCOSE 101 02/17/2022 GLUCFASTING 151 (H) 04/26/2021 CALCIUM 7.8 (L) 02/17/2022 Lab Results Component Value Date WBC 17.0 (H) 02/17/2022 HGB 7.1 (L) 02/17/2022 HCT 22.2 (L) 02/17/2022 MCV 90.2 02/17/2022 PLATELET 316 02/17/2022 Lab Results Component Value Date INR 1.1 02/08/2022 Exam: General: appears in no acute distress, A/O x 3 HEENT: NC/AT Chest: CTA b/l Cardiac: RRR Abdomen: soft, NT/ND, benign Extremity: LLE wound with dressing in place, non tender, L thigh wound with wound vac in place holding suction, tender to palpation, L forearm wound with wound vac in place holding suction, non tender Incision: dressing c/d/i. No evidence of hematoma/seroma/infection A/P: Alix Holland is a 31 y.o. male patient s/p LLE and LUE wound debridement and wound vac change 1. Pain- controlled 2. Nausea- denies 3. Specific c/o- none 4. Volume status- Urine output adequate, will monitor 5. DVT prophylaxis- SCDs, Hep SubQ 6. Diet: Regular Diet 7. Requested Imaging: N/A 8. Disposition- floor Melissa Gonzales MD Acute Care Surgery Pager [phone] Tasha Matthews OTA - 02/17/2022 8:00 AM EDT 02/17/22 0800 Evaluation & Treatment Document Type contact Total Minutes, Occupational Therapy 0 Comment, Session Not Performed Chart reviewed. Pt in the OR. Will follow up post op. Vidhya Peñaloza MD - 02/16/2022 7:27 PM EDT NEPHROLOGY PROGRESS NOTE PATIENT: Alix Holland : 1990 Interval History: Patient seen and examined in the room. Had HD yesterday and is doing well today. Made about 525 cc urine in the last 24 hours. His latest intake - output is as follows: I/O last 3 completed shifts: In: 1999 [P.O.:1500; I.V.:500] Out: 4880 [Urine:525; Other:4200; Stool:150; Blood:5] No intake/output data recorded. He is not in respiratory distress. Not on Oxygen. Lying on the bed with an elevation of 1 pillow. Has a temporary catheter on the right side - no erythema. He has been taking pain medications for his wound pain. Of note, patient has hx drug abuse prior to coming to the hospital. Assessment and Plan: A 31 year old male with PMHx drug abuse, HTN, angioedema, GERD, gastritis, was found to be in V tach cardiac arrest sec to hyperkalemia, severe rhabdomyolysis, in the setting of fentanyl overdose, c/b compartment syndrome, s/p left forearm, L buttock and L thigh fasciotomies, s/p CVVH earlier in the admission, now transitioned to iHD. During this admission, he also had asymptomatic COVID-19 infection which has cleared, C. Diff infection and ischemic hepatitis. #Oliguric renal failure in the setting of MOSF sec to fentanyl overdose/rhabdomyolysis/hyperkalemia/cardiac arrest. #Hyponatremia #Anemia, likely of acute blood loss #Hypoalbuminemia #Severe protein-calorie malnutrition - The plan is to continue HD for now. Patient will go for HD in the morning. His father was at bedside and was educated about transition from CVVH to iHD and now likely, patient may recover from the renal insult but not acutely. - He has been persistently hyponatremic. It is noted that patient's father also brings Gatorade and granola bars for the patient. The patient and his father were educated about hyponatremia. It is requested that the total fluid intake of 1.5 liter per day should include the drinks patient gets other than the hospital food/nursing staff. - Encourage protein intake. - Phosphorus is 4.5 today, better than yesterday. - Potassium is 4.4. Calcium - corrected in the setting of hypoalbuminemia would be within normal limits. - Bicarbonate is 26. Patient is not in metabolic acidosis. - Patient is on Renavite. - Anticipating that eventually patient's renal function will get better. However, at this time, he needs PRESS PULLER. - Hemodynamically stable. PHYSICAL EXAM: Last value Temperature Temp: 36.9 ??C (98.4 ??F) Heart Rate Heart Rate: (!) 120 Blood Pressure BP: (!) 159/103 (RN notified) Respiratory Rate Resp: 18 SpO2 SpO2: 97 % General - AAOx4. No acute distress. HEENT - Atraumatic. No JVD Neck - No JVD Respiratory - Examined anteriorly. No wheezing. Cardiovascular - No murmur. Abdomen - Some abdominal wall edema. Soft. Non tender. Extremities - B/L LE edema +. Wound vac present. Multiple surgical well healing wounds present. Psychiatric - Looks depressed. Neurological - No new FND Current Facility-Administered Medications Medication Dose Route Frequency Provider Last Rate Last Admin ??? metroNIDAZOLE (Flagyl) 500 mg in sodium chloride 0.9% 100 mL infusion 500 mg Intravenous Q8H Collette Dye MD Stopped at 02/16/22 1350 ??? oxyCODONE (Roxicodone) tablet 15 mg 15 mg Oral Q4H PRN Melissa Gonzales MD 15 mg at 02/16/22 181 Or ??? oxyCODONE (Roxicodone) tablet 10 mg 10 mg Oral Q4H PRN Melissa Gonzales MD ??? HYDROmorphone (Dilaudid) (0.5 mg/0.5 mL) injection syringe 0.2 mg 0.2 mg Intravenous Q4H PRN Melissa Gonzales MD ??? ceFEPime (Maxipime) 1g vial attach to sodium chloride 0.9% 100 mL Mini-Bag Plus 1 g Intravenous Once Melissa Gonzales MD 33.3 mL/hr at 02/16/22 181 1 g at 02/16/22 1810 ??? heparin (porcine) (1,000 units/mL) injection 1,000-10,000 Units 1,000-10,000 Units IntercatheterOnce in dialysis PRN Collette Dye MD ??? dronabinoL (Marinol) capsule 10 mg 10 mg Oral BID Collette Dye MD 10 mg at 02/16/22 0830 ??? ceFEPime (Maxipime) 1g vial attach to sodium chloride 0.9% 100 mL Mini-Bag Plus 1 g Intravenous Q24H Collette Dye MD Stopped at 02/16/22 0817 ??? ascorbic acid (Vitamin C) (Vitamin C) tablet 250 mg 250 mg Oral Daily Collette Dye MD 250 mg at 02/16/22 0830 ??? miconazole nitrate (Remedy Phytoplex) 2 % ointment Topical (Top) BID Collette Dye MD Given at 02/16/22 0900 ??? vitamin B Complex-vitamin C-folic Acid (Eileen-scott) 0.8 mg per tablet 1 tablet 1 tablet Oral Daily Collette Dye MD 1 tablet at 02/16/22 08 ??? heparin (porcine) (5,000 units/1 mL) subcutaneous injection 5,000 Units 5,000 Units [id number] Collette Zacarias MD 5,000 Units at 02/16/22 1315 ??? vancomycin (Vancocin) capsule 125 mg 125 mg Oral BID Collette Dye MD 125 mg at 02/16/22 0830 ??? lactulose (Chronulac) (0.67 gram/mL) oral liquid 20 g 20 g Oral BID PRN Collette Dye MD ??? alteplase (Cathflo) injection 1-4 mg 1-4 mL INTRA-CATHETER Once in dialysis PRN Collette Dye MD 2.4 mg at 02/07/22 0520 ??? senna-docusate (Pericolace) 8.6-50 mg per tablet 2 tablet 2 tablet Oral BID Collette Dye MD2 tablet at 02/16/22828 ??? folic acid (Folvite) tablet 1,000 mcg 1,000 mcg Oral Daily Collette Dye MD 1,000 mcg at 02/16/22 0830 ??? thiamine (Vitamin B1) tablet 100 mg 100 mg Oral Daily Collette Dye MD 100 mg at 02/16/22 0830 ??? acetaminophen (Tylenol) tablet 1,000 mg 1,000 mg Oral Q8H Collette Zacarias MD 1,000 mg at 02/16/22 1315 Recent Results (from the past 18 hour(s)) Magnesium Collection Time: 02/16/22 4:05 AM Result Value Ref Range Magnesium 0.83 0.69 - 1.07 mmol/L Phosphorus Collection Time: 02/16/22 4:05 AM Result Value Ref Range Phosphorus 4.5 2.5 - 4.5 mg/dL Basic Metabolic Panel (non-fasting) Collection Time: 02/16/22 4:05 AM Result Value Ref Range Glucose Lvl 94 65 - 199 mg/dL BUN 35 (H) 10 - 20 mg/dL Creatinine 3.65 (H) 0.80 - 1.50 mg/dL Sodium 128 (L) 135 - 145 mmol/L Potassium 4.4 3.5 - 5.0 mmol/L Chloride 95 (L) 98 - 107 mmol/L CO2 26 22 - 31 mmol/L Anion Gap 7 5 - 15 mmol/L Calcium 7.7 (L) 8.5 - 10.5 mg/dL Estimated GFR 22 (L) >=60 mL/min/1.73 m?? Hemogram Collection Time: 02/16/22 4:05 AM Result Value Ref Range WBC 19.0 (H) 4.0 - 9.5 x10(3)/mcL RBC 2.50 (L) 4.58 - 5.54 x10(6)/mcL Hemoglobin 7.3 (L) 13.7 - 16.5 g/dL Hematocrit 22.3 (L) 40.5 - 48.5 % MCV 89.2 82.9 - 93.1 fL MCH 29.2 27.5 - 32.1 pg MCHC 32.7 32.0 - 35.7 g/dL Platelets 296 145 - 357 x10(3)/mcL RDWSD 51.5 (H) 36.0 - 45.0 fL RDWCV 15.7 (H) 11.4 - 13.8 % MPV 9.2 7.6 - 12.9 fL nRBC % Auto 0.0 % nRBC Abs Auto 0.000 0.000 - 0.000 x10(3)/mcL Differential, Automated Collection Time: 02/16/22 4:05 AM Result Value Ref Range Neutrophils % 66.8 % Neutr Abs (ANC) 12.70 (H) 1.70 - 6.10 x10(3)/mcL Lymphocytes % 6.8 % Lymphocytes Abs 1.3 0.9 - 3.2 x10(3)/mcL Monocytes % 5.9 % Monocyte Abs 1.1 (H) 0.3 - 0.9 x10(3)/mcL Eosinophils % 3.2 % Eosinophils Abs 0.6 (H) 0.0 - 0.4 x10(3)/mcL Basophils % 0.6 % Basophils Abs 0.1 0.0 - 0.1 x10(3)/mcL Immature Gran % 16.70 % Gemini Gran Abs 3.17 (H) 0.00 - 0.04 x10(3)/mcL Vidhya Peñaloza #[id number] Associated attestation - Bambi Pressley MD - 02/16/2022 8:54 PM EDT I saw and examined this patient with the renal fellow, Dr. Peñaloza, and I agree with the assessment andrecommendations as documented. Nonoliguric but still limited UO. Peripheral edema now largely resolved. Line site ok. Optimistic for renal recovery but time course uncertain. Patient and father updatedon renal course and plans. Stable anemia and leukocytosis. Please check ferritin. If satisfactory wecan initiate an ANTONIO with dialysis. Melissa Gonzales MD - 02/16/2022 1:16 PM EDT Acute Care Surgery Daily Progress Note Admission Date: 01/23/2022 ID: Alix Holland is a 31 y.o. male with HTN, angioedema requiring intubation 04/21, GERD, gastritis, esophagitis, urachal cyst, and polysubstance use (EtOH, cocaine, heroin) who was admitted to the MICU 01/23/2022 s/p VT arrest in the setting of being found down following fentanyl overdose and developing L forearm and L thigh compartment syndrome (s/p L forearm, L buttock, and L thigh fasciotomies) w/ subsequent rhabdomyolysis, renal failure, and hyperkalemia which required CVVH. He was transitioned to iHD and transferred to floor status 02/02, however he had persistent daily transfusion requirement from ongoing wound vac bleeding and returned to the OR x2 (02/04 and 02/05) for irrigation and debridement of fasciotomy wounds, however no focal source of bleeding was identified. He was transferred to the SICU 02/05 after L thigh wound vac filled with alexsandra blood and hgb dropped to 4.6 despite 6U pRBC. He went to IR for embolization of SGA pseudoaneurysm and to the OR for hematoma washout on 02/06. He returned to the OR for washout and debridement again on 02/08 and 02/09. He was subsequently lateralized to the ACS service and transferred to floor status on 7/13. His hospital course has also been notable for asymptomatic COVID-19 infection, C. 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 Procedures: 01/23: L thigh fasciotomy, L lower leg fasciotomy, L buttock fasciotomy, L forearm fasciotomy 01/26: Debridements and wound vac change 01/29: Debridement of fasciotomies, closure of L lower leg fasciotomy, closure of dorsal forearm fasciotomy, partial closure L thigh fasciotomy 01/31: Debridement and wound vac change 02/02: Debridement and wound vac change 02/04: Debridement and wound vac change 02/05: Debridement and wound vac change, 02/06: IR embolization of SGA pseudoaneurysm 02/06: LLE hematoma evacuation and washout 02/08: washout and debridement LLE, vac change LUE 02/09: washout and debridement LLE with vac placement 02/11: washout and vac change, LLE and LUE 02/13: washout and vac change, LLE and LUE 02/15: washout and vac change, LLE and LUE, possible drainage of L gluteal abscess Subjective Interval Events: - No acute events overnight - Went to OR for LLE and LUE washout and vac change yesterday Objective Vitals: Last Value Range last 24 hrs Temperature Temp: 36.8 ??C (98.2 ??F) Temp: [36.6 ??C (97.9 ??F)-37.1 ??C (98.8 ??F)] Heart Rate Heart Rate: (!) 120 Heart Rate: [107-120] Blood Pressure BP: (!) 163/96 (RN notifed) BP: (122-163)/(83-97) Respiratory Rate Resp: 18 Resp: [16-18] SpO2 SpO2: 96 % SpO2: [95 %-97 %] O2 Device O2 Device: None (Room air) Intake/Output: 02/15 0701 - 02/16 0700 In: 2000 [P.O.:1500; I.V.:500] Out: 4880 [Urine:525] Physical Exam: GEN: resting comfortably in bed, pleasant, conversant when engaged, NAD HEENT: normocephalic, atraumatic CHEST: comfortable work of breathing on RA CV: regular rate, well perfused ABD: soft, nontender, nondistended EXTR: moving spontaneously, no edema; L thigh wound vac in place, holding suction; L forearm wound vac in place, holding suction SKIN: WWP NEURO: AOx3, sleepy and dozing off during conversation, follows commands Labs: Recent Labs 02/16/22 0405 02/15/22 0350 02/14/22 0526 WBC 19.0* 22.1* 23.1* HGB 7.3* 7.2* 8.0* HCT 22.3* 21.3* 23.0* PLATELET 296 254 240 Recent Labs 02/16/22 0405 02/15/22 0350 02/14/22 0526 NA 128* 126* 127* K 4.4 4.8 4.4 CL 95* 92* 91* CO2 26 23 23 BUN 35* 62* 47* CREATININE 3.65* 5.16* 4.06* GLUCOSE 94 91 92 CALCIUM 7.7* 7.5* 7.1* MAGNESIUM 0.83 0.82 0.80 PHOS 4.5 5.7* 4.7* C Diff Screen Date Value Ref Range Status 02/01/2022 Positive (A) Negative Final Comment: PCR Pos C. diff?? Positive (GDH positive, toxin antigen negative, toxin PCR positive) DNA from a toxigenic strain of C. difficile was detected, although the free toxin itself was not detected.?? These results cannot distinguish between colonization and infection. They must be interpreted within the patient???s overall clinical context. Consider other causes for diarrhea or the presence of a non-toxigenic strain. Patient needs to remain on Soap & Water Contact Precautions until discharge or approval by Infection Prevention. Abscess/Wound Aspirate Culture Date Value Ref Range Status 02/15/2022 (A) Final Few Serratia marcescens Rare Pseudomonas aeruginosa Rare mixed bacterial morphotypes suggestive of normal cutaneous yessy 02/08/2022 (A) Final Many Pseudomonas aeruginosa Many Serratia marcescens Susceptibilities previously reported 02/08/2022 (A) Final Many Pseudomonas aeruginosa Many Serratia marcescens Anaerobic Culture Date Value Ref Range Status 02/09/2022 No anaerobic organisms isolated Final 02/08/2022 No anaerobic organisms isolated Final 02/08/2022 No anaerobic organisms isolated Final Tissue Culture Date Value Ref Range Status 02/09/2022 (A) Final Few Pseudomonas aeruginosa Few Serratia marcescens Susceptibilities previously reported Blood Culture Date Value Ref Range Status 02/06/2022 No growth at 5 days. Final 02/05/2022 No growth at 5 days. Final 02/01/2022 No growth at 5 days. Final Studies: 02/11/2022 MR Brain: IMPRESSION Evolution of bilateral globi pallidi injury. Question subtle developing deep white matter changes. Mild increased caliber of the ventricular system which may reflect reduced edema. or volume loss secondary to recent toxic metabolic insult. 02/13 CT A/P: IMPRESSION 1. No evidence of deep intra-abdominal infection. 2. Status post coiling of the LEFT superior gluteal artery and LEFT lateral thigh fasciotomy. 3. Suspect incomplete clearing of the LEFT medial gluteal abscess. 4. Ill-defined, likely abscess involving the LEFT abductor jorge muscle 8 x 4.5 x 3.5 cm. MRI may be beneficial in further characterization. 5. Anasarca 6. RIGHT basilar pleural effusions and underlying airspace consolidations. atelectasis versus pneumonitis. 02/13 CT Femur: IMPRESSION 1. No evidence of deep intra-abdominal infection. 2. Status post coiling of the LEFT superior gluteal artery and LEFT lateral thigh fasciotomy. 3. Suspect incomplete clearing of the LEFT medial gluteal abscess. 4. Ill-defined, likely abscess involving the LEFT abductor jorge muscle 8 x 4.5 x 3.5 cm. MRI may be beneficial in further characterization. 5. Anasarca 6. RIGHT basilar pleural effusions and underlying airspace consolidations, atelectasis versus pneumonitis. 02/13 KUB: IMPRESSION No obstruction. No perforation. Assessment and Plan Alix Holland is a 31 y.o. male with HTN, angioedema requiring intubation 04/21, GERD, gastritis, esophagitis, urachal cyst, and polysubstance use (EtOH, cocaine, heroin) who was admitted 01/23/2022 forcompartment syndrome and rhabdomyalysis after being found down. He is now s/p multiple fasciotomies and debridements of LLE and L forearm. Mr. Holland has had a prolonged, complicated hospital course which has been significant for renal replacement therapy secondary to rhabdomyolysis, ICU admissions, multiple debridements, and persistent transfusion requirement. He was transferred to the floor 02/10 and appears to be slowly progressing towards recovery. Plan for him to go to the OR again 02/15 for washout and wound VAC change. Will likelyrequire ongoing debridements and wound VAC changes in the OR. His wound cultures are growing Pseudomonas and Serratia for which he has been covered with by Zosyn.ID consulted 02/11. Zosyn discontinued and transitioned to cefepime per their recs. He also has C. difficile for which he is being treated with p.o. vancomycin which we will continue for 7 days following discontinuation of cefepime. He has had an increased leukocytosis over the past few days (22.1/23.1/24.5/23.2). His leukocytosis could possibly be related to unresolving C diff infection, however no abd pain per pt. Pt got a KUB and a CT A/P and Femur on 02/13. Results of imaging described above. Nephrology is following for rhabdomyolysis and renal failure. He will continue on iHD per nephrologyrecs. Next HD run planned for today, 02/15. He is also on a 1.5 L total fluid restriction, which includes both p.o. and IV fluids, due to inability to excrete free water and ongoing hyponatremia. Nephrology updated primary team today (02/15) that they are closely following the patient and that they willupdate us when their recommendations change. From a nutrition standpoint he has not been reaching his nutrition goals. This is likely due to a multitude of reasons, namely frequently missing meals due to being n.p.o. for q2d debridement and woundVAC changes in the OR, increased requirements due to size of wounds, extra protein losses from dialysis, and limitations on supplemental nutrition modalities given total fluid restriction. Pain regimen with scheduled Tylenol and Marinol, PRN oxy, and PRN IV Dilaudid only for breakthrough pain. Plan: Neuro: #Pain - Scheduled PO Tylenol - Marinol 10mg BID - PO Oxycodone PRN- Q4 from Q3 #Polysubstance abuse, found down following fentanyl ingestion, Toxic metabolic encephalopathy, bilateral globus pallidum infarcts - Thiamine, folate - Q shift neurovascular checks - Neurology consulted 01/23. Consulted again today (02/16) to discuss pt symptoms and possible recommendations. --- Expected BG evolution on MRI. No further w/u --- Re-consult neuro closer to d/c for EMG/NCS testing for peripheral neuropathy CV: - Persistent tachycardia, likely d/t increased metabolic demand from wounds and infections - No active interventions, CTM Resp: - Encourage IS, OOB - No active interventions, CTM GI: - Senna-docusate BID - Rectal tube in place FEN: F: fluid restriction per nephrology recs below E: CTM, supplement prn N: Regular diet NPO diet (Give Meds) @ midnight for OR tomorrow 02/17 - Nutrition team consulted, appreciate recs --- Not meeting nutrition goals. Needs > 100 g protein/day with iHD and wound vac losses & healing needs --- On Ensure Compact --- Could consider PPN as a nutrition bridge but w/ current fluid restriction, nutrition provisions would be limited Renal/: - No active interventions, CTM - Bladder scans Q8 from Q4 - Nephrology consulted 01/23, appreciate recs --- iHD MWF --- Fluid restriction 1.5L/day (oral and IV) for mild hyponatremia in setting of HD dependence and unable to excrete water --- Primary team updated by nephrology team is closely monitoring the patient, including his new urine output, and will update us when their recommendations change Heme: - No active interventions, CTM - DVT ppx per below - Transfuse for Hgb < 7 ID: - 02/08 and 02/09 wound cx: Pseudomonas, serratia - ID consulted 02/11, appreciate recs - Cont Cefepime (02/11 - ) - Cont PO Vanc BID for c diff (02/01- ) --- PO vanc to continue x7 days after Cefepime ends - s/p Unasyn (01/23-01/26 and 01/29-02/01), Cefazolin (01/26-01/29 and 02/01-02/07), Zosyn (02/08-02/11) - 02/15 L Thigh wound culture: Pseudomonas, Serratia, Gram positive cocci Endo: - No active interventions, CTM MSK: - s/p multiple fasciotomies 01/23: L thigh fasciotomy (wound vac'd), L gluteal fasciotomy, L lower leg fasciotomy (closed 01/29), L volar forearm fasciotomy (wound vac'd), L dorsal forearm fasciotomy (closed 01/29) - s/p multiple OR debridements and wound vac changes - Plastics consulted 02/04, appreciate recs --- Not ready for definitive reconstruction at this time given active infection, will continue to follow - Wound care consulted for excoriations around penis and rectum, orders placed per recs - Orthopedics reconsulted for non weight bearing status (L side)- pt cleared and able to ambulate Prophy: Resp: OOB, IS DVT: SQH TID, IPCs, OOB Lines/Drains/Tubes/Airways: - R IJ triple lumen HD catheter - Rectal tube Dispo: - Floor status - PT/OT consulted 01/27, appreciate recs Code Status: Attempt Cardiopulmonary Resuscitation - Inpatient Melissa Gonzales MD 02/16/2022 Acute Care Surgery Team pager [phone] Associated attestation - Gela Novak MD - 02/16/2022 2:48 PM EDT This patient was personally seen and examined on team rounds. I agree with the assessment and plan as discussed. Diagnoses and therapy were explained and all questions were answered. RTOR in AM for wound care Discussed with his father at bedside Gela Novak MD 02/16/2022 2:48 PM Jairo Kirkland MD - 02/16/2022 11:07 AM EDT Follow-up Inpatient ID Consult Note CC: Surgical site infection Antibiotics: Cefepime since 02/11 Metronidazole 02/16 24 hour events: The patient underwent I&D yesterday, the left forearm wound vac was removed with one black sponge, measured 22.5cm in length, 9.5cm wide, 3mm deep with good granulation tissue, one black sponge placed. The left thigh wound vac was removed with two sponges, the wound tunneled posteriorly and purulent pocket unroofed and cultured, wound measured 55cm length x18cm wide and 8cm deep with 12cm of posterior tunneling, wound vac replaced with two black sponges He is doing relatively well, afebrile but remains hypertensive and in pain Some liquid stool in the Flexi-Seal tube The intraoperative cultures of 02/15 grew Serratia and Pseudomonas Subjective: States that his pain is not well controlled, intensity around 7/10, throbbing worse in his left lateral leg than his left arm, some radiation down to his foot. ROS: Denies fevers, chills, night sweats, headache, dizziness. Denies chest pain, palpitations. Denies shortness of breath, cough. Denies abdominal pain, nausea/vomiting, constipation/diarrhea. Denies hematuria, dysuria. Denies new rashes. Physical Exam: Last value Range last 48 hrs Temperature Temp: 37 ??C (98.6 ??F) Temp: [36.1 ??C (97 ??F)-37.1 ??C (98.8 ??F)] Heart Rate Heart Rate: (!) 120 Heart Rate: [85-120] Blood Pressure BP: (!) 140/97 BP: (122-151)/(83-104) Respiratory Rate Resp: 16 Resp: [12-28] SpO2 SpO2: 97 % SpO2: [95 %-100 %] GEN: resting comfortably in bed, pleasant, conversant when engaged, NAD CV: regular rate, no MRG, well perfused RESP: normal WOB, no WRR ABD: soft, nontender, nondistended EXTR: moving spontaneously, no edema; L thigh wound vac in place, holding suction; L forearm wound vac in place, holding suction. Surrounding redness and warmth noted. SKIN: WWP NEURO: AOx3, follows commands Labs: Recent Labs 02/16/22 0405 WBC 19.0* RBC 2.50* HGB 7.3* HCT 22.3* MCV 89.2 MCH 29.2 MCHC 32.7 PLATELET 296 RDWCV 15.7* Lab Results Component Value Date NA 128 (L) 02/16/2022 K 4.4 02/16/2022 CL 95 (L) 02/16/2022 CO2 26 02/16/2022 BUN 35 (H) 02/16/2022 CREATININE 3.65 (H) 02/16/2022 GLUCOSE 94 02/16/2022 GLUCFASTING 151 (H) 04/26/2021 CALCIUM 7.7 (L) 02/16/2022 ESTGFR 22 (L) 02/16/2022 Lab Results Component Value Date ALT <5 02/05/2022 AST 21 02/05/2022 ALKPHOS 74 02/05/2022 BILITOT 0.4 02/05/2022 BILIDIR 0.3 02/05/2022 ALBUMIN 1.3 (L) 02/12/2022 PROT 3.2 (L) 02/05/2022 Micro: 01/23: blood cx*2 NG 01/23:Tracheal Aspirate: MSSA 01/28: blood cx*1 NG 02/01: blood cx*2 NG 02/01: C diff screen neg 02/04: urine GC, trichomonas screen: neg 02/05: blood cx*1 NG 02/06: blood cx*1 NG 02/08 wound cxs Left thigh #1&2: Pseudomonas (multIS), serratia (multi S except for tetracycline); GS: GNR 02/09 wound cx: Pseudomonas (multIS), serratia (multi S except for tetracycline); GS: GNR 02/15: Intraoperative cultures with Pseudomonas and Serratia Imaging: CT ABDOMEN AND PELVIS W CONTRAST, CT FEMUR W CONTRAST LEFT 02/13 1. No evidence of deep intra-abdominal infection. 2. Status post coiling of the LEFT superior gluteal artery and LEFT lateral thigh fasciotomy. 3. Suspect incomplete clearing of the LEFT medial gluteal abscess. 4. Ill-defined, likely abscess involving the LEFT abductor jorge muscle 8 x 4.5 x 3.5 cm. MRI may be beneficial in further characterization. 5. Anasarca 6. RIGHT basilar pleural effusions and underlying airspace consolidations, atelectasis versus pneumonitis. Impressions: Alix Holland??is a 31 y.o.??man??with HTN, angioedema requiring intubation 04/21, GERD, gastritis, esophagitis, urachal cyst, and polysubstance use (EtOH, cocaine, heroin)??who was admitted to the MICU??01/23/2022??s/p VT arrest in the setting of being??found down following fentanyl ingestion and developing L forearm and L thigh compartment syndrome (s/p L forearm, L buttock, and L thigh fasciotomies) w/ subsequent rhabdomyolysis, renal failure, and hyperkalemia which required CVVH. His hospitalization was complicated by multiple surgical site infection that needed multiple irrigation and debridement of the fasciotomy wound as well as a left side hematoma due to bleeding SGA pseudoaneurysm for which he underwent IR guided embolization and washout of the hematoma on February 06. He also developed C. difficile colitis and had a nonsymptomatic COVID-19 infection and what seems to be an ischemic hepatitis and bilateral globus pallidus infarction [likely to be of metabolic etiology]. Underwent multiple washouts, last of which was yesterday on 02/15, intraoperative cultures still growing Pseudomonas and Serratia. Afebrile but remains tachycardic and in pain, the physical exam is unchanged. Remains on dialysis, yesterday the cefepime dose was skipped, restarted today. Recommendations: Continue cefepime, okay with metronidazole Continue to follow-up on the culture results, needs multiple I&Ds Following with you Discussed with team and Dr. Kirkland. x Consult service will continue to follow patient. Recommendations are above, please page if further consultation required. Lorenza Jha Infectious Disease ID Attending I have seen the patient in person and reviewed the fellow's above history and I agree with the details as written. The assessment and plan were formulated in discussion with me and I agree with them asdocumented. Jairo Kirkland MD Staff Physician [facility] [phone] or [email or web address] 02/16/22, 9:28 PM Kaylah Jang, RD - 02/16/2022 9:23 AM EDT Nutrition Progress Note Alix Holland is a 31 y.o. male ??with history of polysubstance abuse currently admitted for fentanyl OD with LUE and LLE compartment syndrome s/p L forearm, L thigh/buttock and L lower leg fasciotomies, rhabdomyolysis, ARF and hyperkalemic VT arrest (on CVVH) with recurrent L thigh fasciotomy wound bleeding and hemorrhagic shock now 3 days s/p IR embolization of L circumflex iliac artery, Left internal iliac gluteal arterial branches, and left superior gluteal artery via R [employer] access. Reason for intervention: Follow up Nutrition Recommendations: Continue regular diet Please try to limit NPO status Pt with high protein needs- will encourage double portion of protein rich items Will stop Ensure & Magic Cups as pt dislikes. Milk w/ meals encouraged Family at bedside agreea to help w/ menu selections in an effort to maximize protein intake Monitor weights and trend. Patient now meets criteria for severe protein calorie malnutrition as outlined below. Active Orders Diet NPO diet (Give Meds) Frequency: Effective Midnight Number of Occurrences: Until Specified Regular diet Frequency: Effective Now Number of Occurrences: Until Specified Nourishments Adult diet Oral Supplements Other; Ensure Compact Frequency: Effective Now Number of Occurrences: Until Specified Lab Results Component Value Date NA 128 (L) 02/16/2022 K 4.4 02/16/2022 CL 95 (L) 02/16/2022 CO2 26 02/16/2022 BUN 35 (H) 02/16/2022 CREATININE 3.65 (H) 02/16/2022 ESTGFR 22 (L) 02/16/2022 MAGNESIUM 0.83 02/16/2022 CALCIUM 7.7 (L) 02/16/2022 PHOS 4.5 02/16/2022 AST 21 02/05/2022 ALT <5 02/05/2022 ALKPHOS 74 02/05/2022 BILITOT 0.4 02/05/2022 BILIDIR 0.3 02/05/2022 TRIG 359 01/26/2022 CRP <3.0 04/26/2021 [id number] 535 02/03/2022 SFOLATE 3.9 (L) 02/03/2022 IRON 41 (L) 02/02/2022 No results found for: POCGLU Skin Status: Shift Pressure Injury Prevention Occiput: No Injury Thoracic Spine: No Injury Sacral: Redness, Blanchable Ischial - left: No Injury Ischial - right: No Injury Heel - left: No Injury Heel - right: No Injury Elbow - left: No Injury Elbow - right: No Injury Device Sites: O2 sat monitor, IV sites, Flexiseal, Prevalon Boots Other Sites: ([place] x2) Relevant medications: folic acid, marinol, bowel meds, thiamine, Eileen-scott, Ascorbic acid Last Bowel Movement: 02/15/22 Admit Weight: 101.8 kg Estimated body mass index is 31.18 kg/m?? as calculated from the following: Height as of this encounter: 182.9 cm (6' 0.01). Weight as of this encounter: 104.3 kg (229 lb 15 oz). [place] Body Weight: 80.9kg- [place] Usual Body Weight: See below 3.5% wt loss since admission (2 weeks)- clinically significant 2.7% x 1 week - clinically significant Wt Readings from Last 10 Encounters: 02/09/22 104.3 kg (229 lb 15 oz) 04/28/21 98.1 kg (216 lb 4.3 oz) 02/22/19 108.9 kg (240 lb) 05/03/18 113.4 kg (250 lb) 04/27/13 90.7 kg (200 lb) Assessment: Based on IBW 80.9kg Estimated needs: Calories: 7945-9351 (25-30kcal/kg) Protein: 120 grams (1.5 g/kg UBW) - pt onn iHD w/ wound vacs Nutrition Focused Physical Exam (NFPE): Not performed- pt very sleep and unable to participate but appears to have wasting Nutrition intake and intake history/Interview: 02/16/22: F/u w/ pt with family at bedside. He is making improved menu selections but is not drinkingsupplements. Reviewed protein needs; family has brought in high protein granola bars and will encourage intake as well as assist w/ menu selections. Pt continues to miss meals for procedures. Low PAB noted; Serum proteins such as albumin and prealbumin are not included as defining characteristics of malnutrition because recent evidence analysis shows that serum levels of these proteins do not change in response to changes in nutrient intake. (Academy of Nutrition and Dietetics) 02/11/22: Pt continue with increased nutrition needs w/ protein losses form iHD & wound vacs and increased needs for healing. Pt ate well at lunch today but has had MANY missed meals for procedures.Pt sleepy but reports he does get hungry. Girl friend at bedside who reports he looks like he has had significant muscle loss. Trial of Nepro unsuccessful. Electrolytes wnl, so please keep on regular diet ( vs renal) and will try Ensure Compact. Vitamin supplementation as above suggested. 02/09/22:Patient is now day 18 with minimal nutrition. Weight loss over the past week is clinically significant and patient now meets severe protein calorie malnutrition criteria. He continues on CRRT and wound vacs, requiring a minimum of 200g protein daily. Team hopeful to advance diet today after ORbut it is unlikely that patient will meet nutrition goals via PO intake alone for many days and future OR visits will continue to impede adequate nutrition intake. Recommend TPN as a bridge to meet nutrition needs. Protein-calorie Malnutrition: < or equal to 50% of estimated energy requirement for > or equalto 5 days and >2% weight loss in 1 week is consistent with severe protein-calorie malnutrition inthe setting of acute illness or injury (Nelia, SOFIEN J Parenteral Enteral Nutr. 2011; 36(3): 273-83) Nutrition to continue to follow up while inpatient KAYLAH JANG RD Pager #:[phone] Vidhya Peñaloza MD - 02/15/2022 6:47 PM EDT NEPHROLOGY PROGRESS NOTE PATIENT: Alix Holland : 1990 Interval History: Patient seen and examined on the dialysis in the dialysis unit. He remained stable. No events reported. UF - 3 kg. Patient has made nearly 1 liter of urine. Has wound vac in place. No respiratory distress noted when seen. I/O last 3 completed shifts: In: 510 [P.O.:510] Out: 1675 [Urine:925; Other:400; Stool:350] I/O this shift: In: 1250 [P.O.:750; I.V.:500] Out: 3205 [Other:3200; Blood:5] Assessment and Plan: A 31 year old male with PMHx drug abuse, [place] [facility] [place] had cardiac arrest sec to hyperkalemia, sec to rhabdomyolysis, sec to drug abuse. He was found to have compartment syndrome and has undergone Left forearm, left thigh, and left leg fasciotomies. In the setting, he developed MOSF, was intubated, and also developed renal failure. Patient was on CVVH for the earlier part of the admission and now has been transitioned to iHD. - Oliguric renal failure - Previously requiring CVVH - Hx rhabdomyolysis - Anemia - Hyponatremia - Hyperphosphatemia - Hypocalcemia - Severe deconditioning. - Patient has started making some urine. We would like to monitor him on daily basis regarding his urine output and electrolytes. He will be assessed tomorrow again for the need of continuing HD vs watchful monitoring. Patient's creatinine may not be a true marker of his worse renal function. His renal function may beworse than the creatinine given that patient has had loss of muscle mass. His albumin is 1.3 g/dl and total protein is 3.2 g/dl. - Patient has significant anemia. He has had a prolonged hospital admission and has undergone various surgeries. His TSAT was 28% on 02/02/2022. Vitamin B 12 - 535. Folate level - 3.9 which is low. He is on Folic acid supplementation. He can be on oral iron supplements as well. - Patient has significant hyponatremia with sodium 126 mmol/L. He had been drinking up to 4-5 liter per day of power drinks until recently. He has been put on fluid restriction at this time. Would see the morning sodium after the dialysis today. Continue fluid restriction to 1.5 liter per day. Encourage oral intake, high protein diet which would aid in patient's recovery as well as solute diuresis. Of note, patient's albumin on 02/12/2022 was 1.3 g/dl. - Potassium is 4.8, within normal limits. - Calcium would correct to normal limit in the setting of hypoalbuminemia. - Mild hyperphosphatemia. Would recommend to monitor daily. Low phosphorus diet. - Patient is hemodynamically stable. PHYSICAL EXAM: Last value Temperature Temp: 36.9 ??C (98.4 ??F) Heart Rate Heart Rate: (!) 118 Blood Pressure BP: 122/83 Respiratory Rate Resp: 18 SpO2 SpO2: 96 % General - AAOx4. No acute distress. HEENT - Atraumatic. Normocephalic. Neck - No JVD Respiratory - B/L CTA. No crackles or rhonchi. Cardiovascular - S1S2 N. Extremities - Edema present around thighs. Psychiatric - Looks depressed, somnolent. Neurological - No FND Current Facility-Administered Medications Medication Dose Route Frequency Provider Last Rate Last Admin ??? heparin (porcine) (1,000 units/mL) injection 1,000-10,000 Units 1,000-10,000 Units IntercatheterOnce in dialysis PRN Cecilio Gee MD ??? heparin (porcine) (1,000 units/mL) injection 3,000 Units 3,000 Units Intravenous Once in dialysis Cecilio Gee MD ??? dronabinoL (Marinol) capsule 10 mg 10 mg Oral BID Gina Montaño MD ??? oxyCODONE (Roxicodone) tablet 10 mg 10 mg Oral Q4H PRN Veto Hidalgo MD Or ??? oxyCODONE (Roxicodone) tablet 15 mg 15 mg Oral Q3H PRN Veto Hidalgo MD 15 mg at 02/15/22 0359 Or ??? oxyCODONE (Roxicodone) tablet 20 mg 20 mg Oral Q3H PRN Veto Hidalgo MD 20 mg at 02/15/22 1618 ??? ceFEPime (Maxipime) 1g vial attach to sodium chloride 0.9% 100 mL Mini-Bag Plus 1 g Intravenous Q24H Parrish Betancourt MD Stopped at 02/15/22 1200 ??? ascorbic acid (Vitamin C) (Vitamin C) tablet 250 mg 250 mg Oral Daily Veto Hidalgo MD 250 mg at 02/15/22 1620 ??? miconazole nitrate (Remedy Phytoplex) 2 % ointment Topical (Top) BID Veto Hidalgo MD Givenat 02/14/222005 ??? vitamin B Complex-vitamin C-folic Acid (Eileen-scott) 0.8 mg per tablet 1 tablet 1 tablet Oral Daily Veto Hidalgo MD 1 tablet at 02/15/22 1623 ??? HYDROmorphone (Dilaudid) (0.5 mg/0.5 mL) injection syringe 0.6 mg 0.6 mg Intravenous Q4H PRN Veto Hidalgo MD 0.6 mg at 02/15/22 1806 ??? heparin (porcine) (5,000 units/1 mL) subcutaneous injection 5,000 Units 5,000 Units [id number] [facility] Veto Hidalgo MD 5,000 Units at 02/15/22 1629 ??? vancomycin (Vancocin) capsule 125 mg 125 mg Oral BID Veto Hidalgo MD 125 mg at 02/15/22 0735 ??? lactulose (Chronulac) (0.67 gram/mL) oral liquid 20 g 20 g Oral BID PRN Veto Hidalgo MD ??? alteplase (Cathflo) injection 1-4 mg 1-4 mL INTRA-CATHETER Once in dialysis PRN Veto Hidalgo MD 2.4 mg at 02/07/22 0520 ??? senna-docusate (Pericolace) 8.6-50 mg per tablet 2 tablet 2 tablet Oral BID Veto Hidalgo MD 2 tablet at 02/14/222005 ??? folic acid (Folvite) tablet 1,000 mcg 1,000 mcg Oral Daily Veto Hidalgo MD 1,000 mcg at 02/15/22 1622 ??? thiamine (Vitamin B1) tablet 100 mg 100 mg Oral Daily Veto Hidalgo MD 100 mg at 02/15/22 1622 ??? acetaminophen (Tylenol) tablet 1,000 mg 1,000 mg Oral Q8H [place] Veto Hidalgo MD 1,000 mg at 02/15/22 1619 Recent Results (from the past 18 hour(s)) Magnesium Collection Time: 02/15/22 3:50 AM Result Value Ref Range Magnesium 0.82 0.69 - 1.07 mmol/L Phosphorus Collection Time: 02/15/22 3:50 AM Result Value Ref Range Phosphorus 5.7 (H) 2.5 - 4.5 mg/dL Basic Metabolic Panel (non-fasting) Collection Time: 02/15/22 3:50 AM Result Value Ref Range Glucose Lvl 91 65 - 199 mg/dL BUN 62 (H) 10 - 20 mg/dL Creatinine 5.16 (H) 0.80 - 1.50 mg/dL Sodium 126 (L) 135 - 145 mmol/L Potassium 4.8 3.5 - 5.0 mmol/L Chloride 92 (L) 98 - 107 mmol/L CO2 23 22 - 31 mmol/L Anion Gap 11 5 - 15 mmol/L Calcium 7.5 (L) 8.5 - 10.5 mg/dL Estimated GFR 14 (L) >=60 mL/min/1.73 m?? Hemogram Collection Time: 02/15/22 3:50 AM Result Value Ref Range WBC 22.1 (H) 4.0 - 9.5 x10(3)/mcL RBC 2.43 (L) 4.58 - 5.54 x10(6)/mcL Hemoglobin 7.2 (L) 13.7 - 16.5 g/dL Hematocrit 21.3 (L) 40.5 - 48.5 % MCV 87.7 82.9 - 93.1 fL MCH 29.6 27.5 - 32.1 pg MCHC 33.8 32.0 - 35.7 g/dL Platelets 254 145 - 357 x10(3)/mcL RDWSD 49.2 (H) 36.0 - 45.0 fL RDWCV 15.3 (H) 11.4 - 13.8 % MPV 9.3 7.6 - 12.9 fL nRBC % Auto 0.0 % nRBC Abs Auto 0.000 0.000 - 0.000 x10(3)/mcL Differential, Automated Collection Time: 02/15/22 3:50 AM Result Value Ref Range Neutrophils % 61.8 % Neutr Abs (ANC) 13.66 (H) 1.70 - 6.10 x10(3)/mcL Lymphocytes % 7.3 % Lymphocytes Abs 1.6 0.9 - 3.2 x10(3)/mcL Monocytes % 5.4 % Monocyte Abs 1.2 (H) 0.3 - 0.9 x10(3)/mcL Eosinophils % 3.1 % Eosinophils Abs 0.7 (H) 0.0 - 0.4 x10(3)/mcL Basophils % 0.5 % Basophils Abs 0.1 0.0 - 0.1 x10(3)/mcL Immature Gran % 21.90 % Gemini Gran Abs 4.85 (H) 0.00 - 0.04 x10(3)/mcL Abscess/Wound Aspirate Culture Collection Time: 02/15/22 9:06 AM Specimen: Thigh, Left; Deep Wound Left thigh wound culture Result Value Ref Range Gram Stain (A) Moderate Gram Positive Cocci Rare Gram Negative Rods Organism Gram Positive Cocci (A) Organism Gram Negative Rods (A) Vidhya Peñaloza #[id number] Associated attestation - Bambi Pressley MD - 02/15/2022 10:38 PM EDT I saw and examined this patient on hemodialysis with the renal fellow, Dr. Peñaloza, and I agree with the assessment and recommendations as documented. Sleepy and passive at hd having undergone surgery this am. Tolerating treatment well. Nonloliguric but cr cont to rise between treatments. REmains hyponatremic. Exam limited by dressings but mod edema still present. Please check ferritin. We can consider ANTONIO if anemia progresses if ferritin adequate. Scheduled Meds: dronabinoL 10 mg Oral BID ceFEPime 1 g Intravenous Q24H ascorbic acid (Vitamin C) 250 mg Oral Daily miconazole nitrate Topical (Top) BID vitamin B Complex-vitamin C-folic Acid 1 tablet Oral Daily heparin (porcine) 5,000 Units Subcutaneous Q8H [place] vancomycin 125 mg Oral BID senna-docusate 2 tablet Oral BID folic acid 1,000 mcg Oral Daily thiamine 100 mg Oral Daily acetaminophen 1,000 mg Oral Q8H [place] Continuous Infusions: PRN Meds:.heparin (porcine), oxyCODONE OR oxyCODONE OR oxyCODONE, HYDROmorphone, lactulose, alteplase Melissa Gonzales MD - 02/15/2022 3:00 PM EDT Acute Care Surgery Post-Operative Progress Note Alix Holland 02/15/2022 Surgery/Issue: Procedure(s): DEBRIDEMENT SKIN AND SUBCU, LOWER EXTREMITY (WRVU 1.01) MODIFIER WOUND VAC DEBRIDEMENT SKIN, SUBCU, MUSCLE, UPPER EXTREMITY (WRVU 2.7) Attending: Kaylie Armstrong Date of surgery: 02/15/2022 Findings: 1. Left forearm wound vac removed with one black sponge, measured 22.5cm in length, 9.5cm wide, 3mm deep with good granulation tissue, one black sponge placed 2. Left thigh wound vac removed with two sponges, the wound tunneled posteriorly and purulent pocketunroofed and cultured, wound measured 55cm length x18cm wide and 8cm deep with 12cm of posterior tunneling, wound vac replaced with two black sponges Subjective/Events: Pt was seen and examined. Pain well controlled. Denies nausea, vomiting, chest pain, shortness of breath, numbness/weakness. Objcetive: Temp: [36.1 ??C (97 ??F)-36.9 ??C (98.4 ??F)] Heart Rate: [85-118] Resp: [12-28] BP: (122-151)/(83-104) Intake/Output Summary (Last 24 hours) at 02/15/2022 1738 Last data filed at 02/15/2022 1506 Gross per 24 hour Intake 1250 ml Output 4130 ml Net -2880 ml Lab Results Component Value Date NA 126 (L) 02/15/2022 K 4.8 02/15/2022 CL 92 (L) 02/15/2022 CO2 23 02/15/2022 BUN 62 (H) 02/15/2022 CREATININE 5.16 (H) 02/15/2022 GLUCOSE 91 02/15/2022 GLUCFASTING 151 (H) 04/26/2021 CALCIUM 7.5 (L) 02/15/2022 Lab Results Component Value Date WBC 22.1 (H) 02/15/2022 HGB 7.2 (L) 02/15/2022 HCT 21.3 (L) 02/15/2022 MCV 87.7 02/15/2022 PLATELET 254 02/15/2022 Lab Results Component Value Date INR 1.1 02/08/2022 Exam: Gen: A0x3, NAD, resting comfortably. Patient dozes off during exam but is able to be reoriented. Neck: R sided IJ in place. CVS: RRR Resp: CTAB, breathing comfortably on RA Abd: soft, appropriately tender, nondistended : normal external genitalia Ext: LLE wound with dressing in place, nontender. L thigh wound with wound vac in place holding suction. L forearm wound with wound vac in place holding suction. A/P: Alix Holland is a 31 y.o. male patient s/p LLE and LUE wound debridement and wound vac change, currently in stable condition and recovering well. Pt's father by bedside, updated about events of day by this MD. 1. Pain- controlled 2. Nausea- denies 3. Specific c/o- tenderness over lateral left thigh 4. Hemodynamically stable, UOP adequate 5. DVT prophylaxis- SCDs, HepSubQ 6. Diet: Regular Diet 7. Requested Imaging: none 8. Disposition- floor Melissa Gonzales MD Acute Care Surgery Pager [phone] Melissa Gonzales MD - 02/15/2022 1:46 PM EDT Acute Care Surgery Daily Progress Note Admission Date: 01/23/2022 ID: Alix Holland is a 31 y.o. male with HTN, angioedema requiring intubation 04/21, GERD, gastritis, esophagitis, urachal cyst, and polysubstance use (EtOH, cocaine, heroin) who was admitted to the MICU 01/23/2022 s/p VT arrest in the setting of being found down following fentanyl overdose and developing L forearm and L thigh compartment syndrome (s/p L forearm, L buttock, and L thigh fasciotomies) w/ subsequent rhabdomyolysis, renal failure, and hyperkalemia which required CVVH. He was transitioned to iHD and transferred to floor status 02/02, however he had persistent daily transfusion requirement from ongoing wound vac bleeding and returned to the OR x2 (02/04 and 02/05) for irrigation and debridement of fasciotomy wounds, however no focal source of bleeding was identified. He was transferred to the SICU 02/05 after L thigh wound vac filled with alexsandra blood and hgb dropped to 4.6 despite 6U pRBC. He went to IR for embolization of SGA pseudoaneurysm and to the OR for hematoma washout on 02/06. He returned to the OR for washout and debridement again on 02/08 and 02/09. He was subsequently lateralized to the ACS service and transferred to floor status on 02/10. His hospital course has also been notable for asymptomatic COVID-19 infection, C. 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 Procedures: 01/23: L thigh fasciotomy, L lower leg fasciotomy, L buttock fasciotomy, L forearm fasciotomy 01/26: Debridements and wound vac change 01/29: Debridement of fasciotomies, closure of L lower leg fasciotomy, closure of dorsal forearm fasciotomy, partial closure L thigh fasciotomy 01/31: Debridement and wound vac change 02/02: Debridement and wound vac change 02/04: Debridement and wound vac change 02/05: Debridement and wound vac change, 02/06: IR embolization of SGA pseudoaneurysm 02/06: LLE hematoma evacuation and washout 02/08: washout and debridement LLE, vac change LUE 02/09: washout and debridement LLE with vac placement 02/11: washout and vac change, LLE and LUE 02/13: washout and vac change, LLE and LUE 02/15: washout and vac change, LLE and LUE Subjective Interval Events: - No acute events overnight - Bladder scan >999, pt able to void independently 500cc's w/ PVR of >550cc's. Refused straight cath. Was able to void independently an hour later- 450cc's. Objective Vitals: Last Value Range last 24 hrs Temperature Temp: 36.7 ??C (98.1 ??F) Temp: [36.1 ??C (97 ??F)-37.1 ??C (98.8 ??F)] Heart Rate Heart Rate: (!) 106 Heart Rate: [85-109] Blood Pressure BP: (!) 151/92 BP: (133-151)/(87-104) Respiratory Rate Resp: 22 Resp: [12-28] SpO2 SpO2: 98 % SpO2: [98 %-100 %] O2 Device O2 Device: None (Room air) Intake/Output: 02/14 0701 - 02/15 0700 In: 510 [P.O.:510] Out: 1275 [Urine:925] Physical Exam: GEN: resting comfortably in bed, pleasant, conversant when engaged, NAD HEENT: normocephalic, atraumatic CHEST: comfortable work of breathing on RA CV: regular rate, well perfused ABD: soft, nontender, nondistended EXTR: moving spontaneously, no edema; L thigh wound vac in place, holding suction; L forearm wound vac in place, holding suction SKIN: WWP NEURO: AOx3, sleepy and dozing off during conversation, follows commands Labs: Recent Labs 02/15/22 0350 02/14/22 0526 02/13/22 0020 WBC 22.1* 23.1* 24.5* HGB 7.2* 8.0* 8.0* HCT 21.3* 23.0* 23.6* PLATELET 254 240 201 Recent Labs 02/15/22 0350 02/14/22 0526 02/13/22 0020 02/12/22 1645 NA 126* 127* 127* 128* K 4.8 4.4 3.8 -- CL 92* 91* 94* -- CO2 23 23 27 -- BUN 62* 47* 30* -- CREATININE 5.16* 4.06* 2.85* -- GLUCOSE 91 92 120 -- CALCIUM 7.5* 7.1* 7.0* -- MAGNESIUM 0.82 0.80 0.79 -- PHOS 5.7* 4.7* 2.8 -- C Diff Screen Date Value Ref Range Status 02/01/2022 Positive (A) Negative Final Comment: PCR Pos C. diff?? Positive (GDH positive, toxin antigen negative, toxin PCR positive) DNA from a toxigenic strain of C. difficile was detected, although the free toxin itself was not detected.?? These results cannot distinguish between colonization and infection. They must be interpreted within the patient???s overall clinical context. Consider other causes for diarrhea or the presence of a non-toxigenic strain. Patient needs to remain on Soap & Water Contact Precautions until discharge or approval by Infection Prevention. Abscess/Wound Aspirate Culture Date Value Ref Range Status 02/08/2022 (A) Final Many Pseudomonas aeruginosa Many Serratia marcescens Susceptibilities previously reported 02/08/2022 (A) Final Many Pseudomonas aeruginosa Many Serratia marcescens Anaerobic Culture Date Value Ref Range Status 02/09/2022 No anaerobic organisms isolated Final 02/08/2022 No anaerobic organisms isolated Final 02/08/2022 No anaerobic organisms isolated Final Tissue Culture Date Value Ref Range Status 02/09/2022 (A) Final Few Pseudomonas aeruginosa Few Serratia marcescens Susceptibilities previously reported Blood Culture Date Value Ref Range Status 02/06/2022 No growth at 5 days. Final 02/05/2022 No growth at 5 days. Final 02/01/2022 No growth at 5 days. Final Studies: 02/11/2022 MR Brain: IMPRESSION Evolution of bilateral globi pallidi injury. Question subtle developing deep white matter changes. Mild increased caliber of the ventricular system which may reflect reduced edema. or volume loss secondary to recent toxic metabolic insult. 02/13 CT A/P: IMPRESSION 1. No evidence of deep intra-abdominal infection. 2. Status post coiling of the LEFT superior gluteal artery and LEFT lateral thigh fasciotomy. 3. Suspect incomplete clearing of the LEFT medial gluteal abscess. 4. Ill-defined, likely abscess involving the LEFT abductor jorge muscle 8 x 4.5 x 3.5 cm. MRI may be beneficial in further characterization. 5. Anasarca 6. RIGHT basilar pleural effusions and underlying airspace consolidations. atelectasis versus pneumonitis. 02/13 CT Femur: IMPRESSION 1. No evidence of deep intra-abdominal infection. 2. Status post coiling of the LEFT superior gluteal artery and LEFT lateral thigh fasciotomy. 3. Suspect incomplete clearing of the LEFT medial gluteal abscess. 4. Ill-defined, likely abscess involving the LEFT abductor jorge muscle 8 x 4.5 x 3.5 cm. MRI may be beneficial in further characterization. 5. Anasarca 6. RIGHT basilar pleural effusions and underlying airspace consolidations, atelectasis versus pneumonitis. 02/13 KUB: IMPRESSION No obstruction. No perforation. Assessment and Plan Alix Holland is a 31 y.o. male with HTN, angioedema requiring intubation 04/21, GERD, gastritis, esophagitis, urachal cyst, and polysubstance use (EtOH, cocaine, heroin) who was admitted 01/23/2022 forcompartment syndrome and rhabdomyalysis after being found down. He is now s/p multiple fasciotomies and debridements of LLE and L forearm. Mr. Holland has had a prolonged, complicated hospital course which has been significant for renal replacement therapy secondary to rhabdomyolysis, ICU admissions, multiple debridements, and persistent transfusion requirement. He was transferred to the floor 02/10 and appears to be slowly progressing towards recovery. Plan for him to go to the OR again 02/15 for washout and wound VAC change. Will likelyrequire ongoing debridements and wound VAC changes in the OR. His wound cultures are growing Pseudomonas and Serratia for which he has been covered with by Zosyn.ID consulted 02/11. Zosyn discontinued and transitioned to cefepime per their recs. He also has C. difficile for which he is being treated with p.o. vancomycin which we will continue for 7 days following discontinuation of cefepime. He has had an increased leukocytosis over the past few days (22.1/23.1/24.5/23.2). His leukocytosis could possibly be related to unresolving C diff infection, however no abd pain per pt. Pt got a KUB and a CT A/P and Femur on 02/13. Results of imaging described above. Nephrology is following for rhabdomyolysis and renal failure. He will continue on iHD per nephrologyrecs. Next HD run planned for today, 02/15. He is also on a 1.5 L total fluid restriction, which includes both p.o. and IV fluids, due to inability to excrete free water and ongoing hyponatremia. Nephrology updated primary team today (02/15) that they are closely following the patient and that they willupdate us when their recommendations change. From a nutrition standpoint he has not been reaching his nutrition goals. This is likely due to a multitude of reasons, namely frequently missing meals due to being n.p.o. for q2d debridement and woundVAC changes in the OR, increased requirements due to size of wounds, extra protein losses from dialysis, and limitations on supplemental nutrition modalities given total fluid restriction. Continuing Ensure compact to augment nutrition goals. Continuing to work with nutrition team and nephrology team to strike balance between fluid restrictions and nutrition goals. We will also attempt to place him on the OR schedule for morning cases only in order to avoid being n.p.o. all day, however this solution is limited depending on OR schedule acuity of cases. Pain regimen with scheduled Tylenol and Marinol, PRN oxy, and PRN IV Dilaudid only for breakthrough pain. He appears to have adequate pain control with this current regimen, will continue to monitor. Plan: Neuro: #Pain - Scheduled PO Tylenol - Marinol decreased to 10mg BID from 15mg BID - PO Oxycodone PRN - IV Dilaudid 0.6mg for breakthrough pain not controlled with oxy - APS re-consulted 02/11, appreciate recs. #Polysubstance abuse, found down following fentanyl ingestion, Toxic metabolic encephalopathy, bilateral globus pallidum infarcts - Thiamine, folate - Q shift neurovascular checks - Neurology consulted 01/23. Signed off 02/12 --- Expected BG evolution on MRI. No further w/u --- Re-consult neuro closer to d/c for EMG/NCS testing for peripheral neuropathy CV: - Persistent tachycardia, likely d/t increased metabolic demand from wounds and infections - No active interventions, CTM Resp: - Encourage IS, OOB - No active interventions, CTM GI: - Senna-docusate BID - Rectal tube in place FEN: F: fluid restriction per nephrology recs below E: CTM, supplement prn N: Regular diet - Nutrition team consulted, appreciate recs --- Not meeting nutrition goals. Needs > 100 g protein/day with iHD and wound vac losses & healing needs --- On Ensure Compact --- Could consider PPN as a nutrition bridge but w/ current fluid restriction, nutrition provisions would be limited Renal/: - No active interventions, CTM - Nephrology consulted 01/23, appreciate recs --- iHD MWF --- Fluid restriction 1.5L/day (oral and IV) for mild hyponatremia in setting of HD dependence and unable to excrete water --- Primary team updated today (02/15) that the nephrology team is closely monitoring the patient, including his new urine output, and will update us when their recommendations change Heme: - No active interventions, CTM - DVT ppx per below - Transfuse for Hgb < 7 ID: - 02/08 and 02/09 wound cx: Pseudomonas, serratia - ID consulted 02/11, appreciate recs - Cont Cefepime (02/11 - ) - Cont PO Vanc BID for c diff (02/01- ) --- PO vanc to continue x7 days after Cefepime ends - s/p Unasyn (01/23-01/26 and 01/29-02/01), Cefazolin (01/26-01/29 and 02/01-02/07), Zosyn (02/08-02/11) Endo: - No active interventions, CTM MSK: - s/p multiple fasciotomies 01/23: L thigh fasciotomy (wound vac'd), L gluteal fasciotomy, L lower leg fasciotomy (closed 01/29), L volar forearm fasciotomy (wound vac'd), L dorsal forearm fasciotomy (closed 01/29) - s/p multiple OR debridements and wound vac changes. Plan for OR again today (02/15) - Plastics consulted 02/04, appreciate recs --- Not ready for definitive reconstruction at this time given active infection, will continue to follow - Wound care consulted for excoriations around penis and rectum, orders placed per recs Prophy: Resp: OOB, IS DVT: SQH TID, IPCs, OOB Lines/Drains/Tubes/Airways: - R IJ triple lumen HD catheter - Rectal tube Dispo: - Floor status - PT/OT consulted 01/27, appreciate recs Code Status: Attempt Cardiopulmonary Resuscitation - Inpatient Melissa Gonzales MD 02/15/2022 Acute Care Surgery Team pager [phone] Associated attestation - Gela Novak MD - 02/15/2022 2:00 PM EDT This patient was personally seen and examined on team rounds. I agree with the assessment and plan as discussed. Diagnoses and therapy were explained and all questions were answered. RTOR for wound care and possible drainage of L gluteal abscess Gela Novak MD 02/15/2022 1:59 PM Graciela Teran RN - 02/15/2022 9:48 AM EDT Pt arrived from the OR in a bed with service and anesthesia in attendance. Monitors attached. Alarmson and audible. Wound vacs WDL. Observed to be withdrawn and nodding off at times during conversation - easily arousable to answer questions. C/O 10/10 pain; observed to fall asleep during further asses sment - pain meds held for patient safety. Plan for dialysis after criteria meets in PACU. Report called to [facility] and hospice manager. Ama Tucker RN - 02/15/2022 4:50 AM EDT OUTCOME EVALUATION NOTE: OUTCOME SUMMARY: A&Ox4. Tachycardic at times with heart rate between 100-110. Clear lung sounds on room air. Reports 7-9/10 pain in left hip. PO oxycodone given per MAR with good effect. PRN IV dilaudid given x2 for breakthrough pain. Numbness/tingling present in LUE and LLE. +2 edema present in LUE and bilateral lower extremities. Flexiseal bag changed and in place for fecal incontinence, milked as needed. Patient turned and barrier cream applied to redness on groin, scrotum, and anus. Patient voided 525 ml at 1921, PVR was 54. Wound vac dressing on LUE and LLE are clean/dry/intact. Both functioning properly at -125mmhg. Fluid intake strictly monitored due to low sodium level of 126. PLAN MOVING FORWARD: Dialysis MWF Pain control IV and PO antibiotics Frequent turns INDIVIDUALIZED FALL PREVENTION INTERVENTIONS: Patient-specific fall risk factors per assessment: [current deficits]: Drowsy, lines/drains, narcotics Assistance [level of assistance required for transfers and ambulation]: Dependent, requires 2 peopleto turn Supervision [direct monitoring required during toileting and ADLs]: Hands on Surveillance [continuous indirect monitoring]: Yohan Patient-specific fall prevention interventions for sensory deficits provided, if applicable: [X] Yeslighting adjusted for tasks CPG GOAL OUTCOME EVALUATION: Ongoing Cecilio Gee MD - 02/14/2022 1:46 PM EDT Hypertension/Nephrology Staff Inpatient Follow-up Alix Holland [id number] 1990 ID: 31 y.o. old male seen for ALTHEA. Interval History: Uneventful night. Still no urine output. No complaints this AM. Physical Examination: Patient Vitals for the past 24 hrs: BP Temp Temp src Pulse Resp SpO2 02/14/22 1056 (!) 141/95 36.7 ??C (98.1 ??F) Oral -- 18 99 % 02/14/22 0759 (!) 149/92 36.8 ??C (98.2 ??F) Oral -- 12 100 % 02/14/22 0414 (!) 148/106 37.4 ??C (99.3 ??F) Oral (!) 103 18 98 % 02/14/22 0029 125/89 37.3 ??C (99.1 ??F) Oral -- 19 99 % 02/13/22 1922 (!) 132/91 37.4 ??C (99.32 ??F) Oral (!) 107 20 99 % 02/13/22 1607 126/89 36.5 ??C (97.7 ??F) Oral (!) 112 16 98 % Weight change: Intake/Output Summary (Last 24 hours) at 02/14/2022 1346 Last data filed at 02/14/2022 1200 Gross per 24 hour Intake 510 ml Output 400 ml Net 110 ml General: NAD Eye: Conjunctivae clear ENT: No external lesions Neck: S/NT CV: reg Resp: CTA Abd: S/NT Ext: 1+ edema Skin: Warm/dry Neuro: nonfocal Psych: A&O Labs: Recent Results (from the past 24 hour(s)) Magnesium Result Value Ref Range Magnesium 0.80 0.69 - 1.07 mmol/L Phosphorus Result Value Ref Range Phosphorus 4.7 (H) 2.5 - 4.5 mg/dL Basic Metabolic Panel (non-fasting) Result Value Ref Range Glucose Lvl 92 65 - 199 mg/dL BUN 47 (H) 10 - 20 mg/dL Creatinine 4.06 (H) 0.80 - 1.50 mg/dL Sodium 127 (L) 135 - 145 mmol/L Potassium 4.4 3.5 - 5.0 mmol/L Chloride 91 (L) 98 - 107 mmol/L CO2 23 22 - 31 mmol/L Anion Gap 13 5 - 15 mmol/L Calcium 7.1 (L) 8.5 - 10.5 mg/dL Estimated GFR 19 (L) >=60 mL/min/1.73 m?? Hemogram Result Value Ref Range WBC 23.1 (H) 4.0 - 9.5 x10(3)/mcL RBC 2.62 (L) 4.58 - 5.54 x10(6)/mcL Hemoglobin 8.0 (L) 13.7 - 16.5 g/dL Hematocrit 23.0 (L) 40.5 - 48.5 % MCV 87.8 82.9 - 93.1 fL MCH 30.5 27.5 - 32.1 pg MCHC 34.8 32.0 - 35.7 g/dL Platelets 240 145 - 357 x10(3)/mcL RDWSD 49.2 (H) 36.0 - 45.0 fL RDWCV 15.5 (H) 11.4 - 13.8 % MPV 9.4 7.6 - 12.9 fL nRBC % Auto 0.0 % nRBC Abs Auto 0.000 0.000 - 0.000 x10(3)/mcL Differential, Automated Result Value Ref Range Neutrophils % 52.2 % Neutr Abs (ANC) 12.07 (H) 1.70 - 6.10 x10(3)/mcL Lymphocytes % 7.7 % Lymphocytes Abs 1.8 0.9 - 3.2 x10(3)/mcL Monocytes % 6.7 % Monocyte Abs 1.5 (H) 0.3 - 0.9 x10(3)/mcL Eosinophils % 3.1 % Eosinophils Abs 0.7 (H) 0.0 - 0.4 x10(3)/mcL Basophils % 0.3 % Basophils Abs 0.1 0.0 - 0.1 x10(3)/mcL Immature Gran % 30.00 % Gemini Gran Abs 6.92 (H) 0.00 - 0.04 x10(3)/mcL Scan, Peripheral Blood Result Value Ref Range Plat Estimate Normal RBC Morphology Abnormal Hypochromia Slight A/P: 1. Renal: persistent anuric ALTHEA post rhabdo. Hyponatremia persists but chemistries otherwise stable.BP stable, phos slowly rising. - HD tomorrow with fluid removal as tolerated. Will lower Na bath to avoid provoking thirst. - 1.5L/d fluid restriction - avoid nephrotoxins, including NSAIDS - renal dose meds Melissa Gonzales MD - 02/14/2022 12:48 PM EDT Acute Care Surgery Daily Progress Note Admission Date: 01/23/2022 ID: Alix Holland is a 31 y.o. male with HTN, angioedema requiring intubation 04/21, GERD, gastritis, esophagitis, urachal cyst, and polysubstance use (EtOH, cocaine, heroin) who was admitted to the MICU 01/23/2022 s/p VT arrest in the setting of being found down following fentanyl overdose and developing L forearm and L thigh compartment syndrome (s/p L forearm, L buttock, and L thigh fasciotomies) w/ subsequent rhabdomyolysis, renal failure, and hyperkalemia which required CVVH. He was transitioned to iHD and transferred to floor status 02/02, however he had persistent daily transfusion requirement from ongoing wound vac bleeding and returned to the OR x2 (02/04 and 02/05) for irrigation and debridement of fasciotomy wounds, however no focal source of bleeding was identified. He was transferred to the SICU 02/05 after L thigh wound vac filled with alexsandra blood and hgb dropped to 4.6 despite 6U pRBC. He went to IR for embolization of SGA pseudoaneurysm and to the OR for hematoma washout on 02/06. He returned to the OR for washout and debridement again on 02/08 and 02/09. He was subsequently lateralized to the ACS service and transferred to floor status on 02/10. His hospital course has also been notable for asymptomatic COVID-10 infection, C. 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 Procedures: 01/23: L thigh fasciotomy, L lower leg fasciotomy, L buttock fasciotomy, L forearm fasciotomy 01/26: Debridements and wound vac change 01/29: Debridement of fasciotomies, closure of L lower leg fasciotomy, closure of dorsal forearm fasciotomy, partial closure L thigh fasciotomy 01/31: Debridement and wound vac change 02/02: Debridement and wound vac change 02/04: Debridement and wound vac change 02/05: Debridement and wound vac change, 02/06: IR embolization of SGA pseudoaneurysm 02/06: LLE hematoma evacuation and washout 02/08: washout and debridement LLE, vac change LUE 02/09: washout and debridement LLE with vac placement 02/11: washout and vac change, LLE and LUE 02/13: washout and vac change, LLE and LUE Subjective Interval Events: - CT results showing no evidence of intraabdominal infection, incomplete clearing of L gluteal abscess, likely L abductor jorge abscess, and possible picture of atelectasis vs pneumonitis - Seen by nephrology yesterday 02/13- appreciate recommendations - Seen by Id yesterday 02/13- appreciate recommendations Objective Vitals: Last Value Range last 24 hrs Temperature Temp: 36.7 ??C (98.1 ??F) Temp: [36.5 ??C (97.7 ??F)-37.4 ??C (99.32 ??F)] Heart Rate Heart Rate: (!) 103 Heart Rate: [103-112] Blood Pressure BP: (!) 141/95 BP: (125-149)/(89-106) Respiratory Rate Resp: 18 Resp: [12-20] SpO2 SpO2: 99 % SpO2: [98 %-100 %] O2 Device O2 Device: None (Room air) Intake/Output: 02/13 0701 - 02/14 0700 In: 1400 [P.O.:500; I.V.:900] Out: 602 Physical Exam: GEN: resting comfortably in bed, pleasant, conversant, NAD HEENT: normocephalic, atraumatic CHEST: comfortable work of breathing on RA CV: regular rate, well perfused ABD: soft, nontender, nondistended. EXTR: moving spontaneously, no edema; L thigh wound vac in place, holding suction; L forearm wound vac in place, holding suction SKIN: WWP NEURO: AOx3, sleepy and dozing off during conversation, follows commands Labs: Recent Labs 02/14/22 0526 02/13/22 0020 02/12/22 0030 WBC 23.1* 24.5* 23.2* HGB 8.0* 8.0* 6.9* HCT 23.0* 23.6* 20.7* PLATELET 240 201 166 Recent Labs 02/14/22 0526 02/13/22 0020 02/12/22 1645 02/12/22 0916 02/12/22 0030 NA 127* 127* 128* 125* 127* K 4.4 3.8 -- -- 4.4 CL 91* 94* -- -- 99 CO2 23 27 -- -- 21* BUN 47* 30* -- -- 39* CREATININE 4.06* 2.85* -- -- 3.74* GLUCOSE 92 120 -- -- 103 CALCIUM 7.1* 7.0* -- -- 6.1* MAGNESIUM 0.80 0.79 -- -- 0.79 PHOS 4.7* 2.8 -- -- 2.7 C Diff Screen Date Value Ref Range Status 02/01/2022 Positive (A) Negative Final Comment: PCR Pos C. diff?? Positive (GDH positive, toxin antigen negative, toxin PCR positive) DNA from a toxigenic strain of C. difficile was detected, although the free toxin itself was not detected.?? These results cannot distinguish between colonization and infection. They must be interpreted within the patient???s overall clinical context. Consider other causes for diarrhea or the presence of a non-toxigenic strain. Patient needs to remain on Soap & Water Contact Precautions until discharge or approval by Infection Prevention. Abscess/Wound Aspirate Culture Date Value Ref Range Status 02/08/2022 (A) Final Many Pseudomonas aeruginosa Many Serratia marcescens Susceptibilities previously reported 02/08/2022 (A) Final Many Pseudomonas aeruginosa Many Serratia marcescens Anaerobic Culture Date Value Ref Range Status 02/09/2022 No anaerobic organisms isolated Final 02/08/2022 No anaerobic organisms isolated Final 02/08/2022 No anaerobic organisms isolated Final Tissue Culture Date Value Ref Range Status 02/09/2022 (A) Final Few Pseudomonas aeruginosa Few Serratia marcescens Susceptibilities previously reported Blood Culture Date Value Ref Range Status 02/06/2022 No growth at 5 days. Final 02/05/2022 No growth at 5 days. Final 02/01/2022 No growth at 5 days. Final Studies: 02/11/2022 MR Brain: IMPRESSION Evolution of bilateral globi pallidi injury. Question subtle developing deep white matter changes. Mild increased caliber of the ventricular system which may reflect reduced edema or volume loss secondary to recent toxic metabolic insult. 02/13 CT A/P: IMPRESSION 1. No evidence of deep intra-abdominal infection. 2. Status post coiling of the LEFT superior gluteal artery and LEFT lateral thigh fasciotomy. 3. Suspect incomplete clearing of the LEFT medial gluteal abscess. 4. Ill-defined, likely abscess involving the LEFT abductor jorge muscle 8 x 4.5 x 3.5 cm. MRI may be beneficial in further characterization. 5. Anasarca 6. RIGHT basilar pleural effusions and underlying airspace consolidations, atelectasis versus pneumonitis. 02/13 CT Femur: IMPRESSION 1. No evidence of deep intra-abdominal infection. 2. Status post coiling of the LEFT superior gluteal artery and LEFT lateral thigh fasciotomy. 3. Suspect incomplete clearing of the LEFT medial gluteal abscess. 4. Ill-defined, likely abscess involving the LEFT abductor jorge muscle 8 x 4.5 x 3.5 cm. MRI may be beneficial in further characterization. 5. Anasarca 6. RIGHT basilar pleural effusions and underlying airspace consolidations, atelectasis versus pneumonitis. 02/13 KUB: IMPRESSION No obstruction. No perforation. Assessment and Plan Alix Holland is a 31 y.o. male with HTN, angioedema requiring intubation 04/21, GERD, gastritis, esophagitis, urachal cyst, and polysubstance use (EtOH, cocaine, heroin) who was admitted 01/23/2022 forcompartment syndrome and rhabdomyalysis after being found down. He is now s/p multiple fasciotomies and debridements of LLE and L forearm. Mr. Holland has had a prolonged, complicated hospital course which has been significant for renal replacement therapy secondary to rhabdomyolysis, ICU admissions, multiple debridements, and persistent transfusion requirement. He was transferred to the floor 02/10 and appears to be slowly progressing towards recovery. Plan for him to go to the OR again 02/13 for washout and wound VAC change. Will likelyrequire ongoing debridements and wound VAC changes in the OR. His wound cultures are growing Pseudomonas and Serratia for which he has been covered with by Zosyn.ID consulted 02/11. Zosyn discontinued and transitioned to cefepime per their recs. He also has C. difficile for which he is being treated with p.o. vancomycin which we will continue for 7 days following discontinuation of cefepime. He has had an increasing leukocytosis over the past few days (23.1/24.5/23.2/18.1). His leukocytosis could possibly be related to unresolving C diff infection, however no abd pain per pt. Pt got a KUB and a CT A/P and Femur on 02/13. Results of imaging described above. Nephrology is following for rhabdomyolysis and renal failure. He will continue on iHD per nephrologyrecs. Next HD run planned for 02/15. He is also on a 1.5 L total fluid restriction, which includes both p.o. and IV fluids, due to inability to excrete free water and ongoing hyponatremia. From a nutrition standpoint he has not been reaching his nutrition goals. This is likely due to a multitude of reasons, namely frequently missing meals due to being n.p.o. for q2d debridement and woundVAC changes in the OR, increased requirements due to size of wounds, extra protein losses from dialysis, and limitations on supplemental nutrition modalities given total fluid restriction. Continuing Ensure compact to augment nutrition goals. Continuing to work with nutrition team and nephrology team to strike balance between fluid restrictions and nutrition goals. We will also attempt to place him on the OR schedule for morning cases only in order to avoid being n.p.o. all day, however this solution is limited depending on OR schedule acuity of cases. Pain regimen with scheduled Tylenol and Marinol, PRN oxy, and PRN IV Dilaudid only for breakthrough pain. He appears to have adequate pain control with this current regimen, will continue to monitor. Plan: Neuro: #Pain - Scheduled PO Tylenol - Marinol 15mg BID - PO Oxycodone PRN - IV Dilaudid 0.6mg for breakthrough pain not controlled with oxy - APS re-consulted 02/11, appreciate recs. S/o 02/12 #Polysubstance abuse, found down following fentanyl ingestion, Toxic metabolic encephalopathy, bilateral globus pallidum infarcts - Thiamine, folate - Q shift neurovascular checks - Neurology consulted 01/23. Signed off 02/12 --- Expected BG evolution on MRI. No further w/u --- Re-consult neuro closer to d/c for EMG/NCS testing for peripheral neuropathy CV: - Persistent tachycardia, likely d/t increased metabolic demand from wounds and infections - No active interventions, CTM Resp: - Encourage IS, OOB - No active interventions, CTM GI: - Senna-docusate BID - Rectal tube in place FEN: F: fluid restriction per nephrology recs below E: CTM, supplement prn N: Regular diet NPO diet (Give Meds) @midnight - Nutrition team consulted, appreciate recs --- Not meeting nutrition goals. Needs > 100 g protein/day with iHD and wound vac losses & healing needs --- On Ensure Compact --- Could consider PPN as a nutrition bridge but w/ current fluid restriction, nutrition provisions would be limited Renal/: - No active interventions, CTM - Nephrology consulted 01/23, appreciate recs --- iHD MWF --- Fluid restriction 1.5L/day (oral and IV) for mild hyponatremia in setting of HD dependence and unable to excrete water Heme: - No active interventions, CTM - DVT ppx per below - Transfuse for Hgb < 7 ID: - 02/08 and 02/09 wound cx: Pseudomonas, serratia - ID consulted 02/11, appreciate recs - Cont Cefepime (02/11 - ) - Cont PO Vanc BID for c diff (02/01- ) --- PO vanc to continue x7 days after Cefepime ends - s/p Unasyn (01/23-01/26 and 01/29-02/01), Cefazolin (01/26-01/29 and 02/01-02/07), Zosyn (02/08-02/11) - s/p asymptomatic Covid+ (now resolved, off precautions) Endo: - No active interventions, CTM MSK: - s/p multiple fasciotomies 01/23: L thigh fasciotomy (wound vac'd), L gluteal fasciotomy, L lower leg fasciotomy (closed 01/29), L volar forearm fasciotomy (wound vac'd), L dorsal forearm fasciotomy (closed 01/29) - s/p multiple OR debridements and wound vac changes. Plan for OR again tomorrow (02/15) - Plastics consulted 02/04, appreciate recs --- Not ready for definitive reconstruction at this time given active infection, will continue to follow - Wound care consulted for excoriations around penis and rectum, orders placed per recs Prophy: Resp: OOB, IS DVT: SQH TID, IPCs, OOB Lines/Drains/Tubes/Airways: - R IJ triple lumen HD catheter - Rectal tube Dispo: - Floor status - PT/OT consulted 01/27, appreciate recs Code Status: Attempt Cardiopulmonary Resuscitation - Inpatient Melissa Gonzales MD 02/14/2022 Acute Care Surgery Team pager [phone] Jairo Kirkland MD - 02/13/2022 4:06 PM EDT CHIEF COMPLAINT F/u for wound infection SUBJECTIVE Patient quite sleepy but in pain in his left arm and leg after surgery. No abdominal pain. OBJECTIVE I reviewed vital signs from the past 24 hours: Episodes of tachycardia with borderline HTN to 130s CONSTITUTIONAL: No acute distress, sleepy EYES: No conjunctival injection or icterus, pupils equal, round, and reactive to light EARS, NOSE, MOUTH, THROAT: Ears and nose grossly normal, oropharynx clear without lesions or thrush CARDIOVASCULAR: Regular rate and rhythm, no murmurs, rubs or gallops, no lower extremity edema or JVD RESPIRATORY: Normal work of breathing, no wheezes, rales, or ronchi GI: Normal bowel sounds, soft, no tenderness to palpation SKIN: No rashes, normal temperature and turgor; +vac to left arm and leg NEURO: Cranial nerves grossly intact, light touch intact I have reviewed Labs: WBC 24.5, diff with 45% pmn, Cr 2.85 External records in - Epic: 02/13 op note showed healthy granulation tissue of LUE and LLE, left open I have independently visualized and interpreted the following studies and my comments are Imaging: Awaiting formal reads for today's CT AP and left leg but appears to have dilated stomach, decompressed bowel, bibasilar atelectasis, and tracking of wound superiorly about pelvic bone ASSESSMENT #Left thigh wound infection 2/2 Pseudomonas and Serratia, stable #SA leading to rhabdo/compartment syndrome s/p multiple debridements, stable #Leukocytosis, worsening: DDx reactive (has had many surgeries in the past few days), ineffective CDI treatment, insufficient source control in left leg. Notably without neutrophilia. #C difficile infection, stable #ALTHEA on HD, stable #Hx COVID, stable PLAN - continue cefepime, dosing same as still on HD - continue po vanc for C diff ppx - f/u CT scan read - duration of abx TBD by definitive surgery, can probably treat SSTI course following closure - following with you I have discussed this case with Dr. Montaño. Jairo Kirkland MD Staff Physician [facility] [phone] or [email or web address] 02/13/22, 4:06 PM Carley Arzate RN - 02/13/2022 4:01 PM EDT Assumed care of pt at approx. 1130. A&Ox4. VSS on RA. Went to OR this morning for debridement and WV changes. WVs to LUE and LLE holding suction well. Mepilex to L morrow CDI. Pain controlled with scheduled and PRN meds. Continues w/ +3 edema. Tolerating regular diet, denies N/V. Per MD Hidalgo, kaylee for 2L FR today as 1L IVF given in OR. Flexiseal in place w/ brown liquid stool. Remains anuric. Justin Pereira MD - 02/13/2022 2:03 PM EDT Post-Operative Check Alix Holland is a 31 y.o. male s/p Procedure(s): DEBRIDEMENT SKIN AND SUBCU, LOWER EXTREMITY (WRVU 1.01) DRESSING CHANGE (FOR OTHER THAN GALLOWAY) UNDER ANES., UPPER EXTREMITY (WRVU 0.86) MODIFIER WOUND VAC S: No nausea/vomiting, chest pain, SOB, pain well controlled, offers no complaints. He is toleratinga diet. States that he is tired after the OR but otherwise feels OK. O: Temp: [36.5 ??C (97.7 ??F)-37.2 ??C (99 ??F)] Heart Rate: [84-112] Resp: [11-17] BP: (128-137)/(89-95) SpO2: [98 %-100 %] Heart Rate from SpO2: -- I/O last 3 completed shifts: In: 1999 [P.O.:1350; Blood:350; IV Piggyback:300] Out: 4835 [Other:4836] I/O this shift: In: 1400 [P.O.:500; I.V.:900] Out: 202 [Other:200; Blood:2] Recent Results (from the past 24 hour(s)) Sodium Result Value Ref Range Sodium 128 (L) 135 - 145 mmol/L Magnesium Result Value Ref Range Magnesium 0.79 0.69 - 1.07 mmol/L Phosphorus Result Value Ref Range Phosphorus 2.8 2.5 - 4.5 mg/dL Basic Metabolic Panel (non-fasting) Result Value Ref Range Glucose Lvl 120 65 - 199 mg/dL BUN 30 (H) 10 - 20 mg/dL Creatinine 2.85 (H) 0.80 - 1.50 mg/dL Sodium 127 (L) 135 - 145 mmol/L Potassium 3.8 3.5 - 5.0 mmol/L Chloride 94 (L) 98 - 107 mmol/L CO2 27 22 - 31 mmol/L Anion Gap 6 5 - 15 mmol/L Calcium 7.0 (L) 8.5 - 10.5 mg/dL Estimated GFR 30 (L) >=60 mL/min/1.73 m?? Hemogram Result Value Ref Range WBC 24.5 (H) 4.0 - 9.5 x10(3)/mcL RBC 2.72 (L) 4.58 - 5.54 x10(6)/mcL Hemoglobin 8.0 (L) 13.7 - 16.5 g/dL Hematocrit 23.6 (L) 40.5 - 48.5 % MCV 86.8 82.9 - 93.1 fL MCH 29.4 27.5 - 32.1 pg MCHC 33.9 32.0 - 35.7 g/dL Platelets 201 145 - 357 x10(3)/mcL RDWSD 48.3 (H) 36.0 - 45.0 fL RDWCV 15.4 (H) 11.4 - 13.8 % MPV 9.7 7.6 - 12.9 fL nRBC % Auto 0.0 % nRBC Abs Auto 0.000 0.000 - 0.000 x10(3)/mcL Differential, Automated Result Value Ref Range Neutrophils % 44.9 % Neutr Abs (ANC) 11.00 (H) 1.70 - 6.10 x10(3)/mcL Lymphocytes % 8.8 % Lymphocytes Abs 2.2 0.9 - 3.2 x10(3)/mcL Monocytes % 9.3 % Monocyte Abs 2.3 (H) 0.3 - 0.9 x10(3)/mcL Eosinophils % 2.6 % Eosinophils Abs 0.6 (H) 0.0 - 0.4 x10(3)/mcL Basophils % 0.3 % Basophils Abs 0.1 0.0 - 0.1 x10(3)/mcL Immature Gran % 34.10 % Gemini Gran Abs 8.35 (H) 0.00 - 0.04 x10(3)/mcL Scan, Peripheral Blood Result Value Ref Range Plat Estimate Normal RBC Morphology Abnormal Hypochromia Slight Angel Cells 1-5 /HPF Stippled RBCs Present >1/HPF Toxic Granulation Present Physical Exam Gen: A0x3, NAD, resting comfortably. Patient dozes off during exam but is able to be reoriented. Neck: R sided IJ in place. CVS: RRR Resp: CTAB, breathing comfortably on RA Abd: soft, appropriately tender, nondistended : normal external genitalia Ext: LLE wound with dressing in place, nontender. L thigh wound with wound vac in place holding suction. L forearm wound with wound vac in place holding suction. AP Alix Holland is a 31 y.o. male s/p LLE and LUE wound debridement and wound vac change, currently in stable condition and recovering well - Regular diet - Pain well controlled - Hemodynamically stable, UOP adequate - Continue post operative plan per primary team Justin Pereira MD 02/13/2022 Cecilio Gee MD - 02/13/2022 10:58 AM EDT Hypertension/Nephrology Staff Inpatient Follow-up Alix Holland [id number] 1990 ID: 31 y.o. old male seen for ALTHEA. Interval History: Uneventful night. Still no urine output. No complaints this AM. Physical Examination: Patient Vitals for the past 24 hrs: BP Temp Temp src Pulse Resp SpO2 02/13/22 1045 131/89 -- -- 93 11 98 % 02/13/22 1030 (!) 128/92 -- -- 95 13 98 % 02/13/22 1015 (!) 129/95 -- -- 89 14 100 % 02/13/22 1000 (!) 129/93 37.2 ??C (99 ??F) Temporal 84 14 100 % 02/13/22 0720 (!) 137/93 37 ??C (98.6 ??F) Oral (!) 101 17 98 % 02/13/22 0608 (!) 137/91 37.2 ??C (98.96 ??F) Oral 100 16 98 % 02/12/22 2357 122/82 37.1 ??C (98.78 ??F) Oral (!) 103 18 98 % 02/12/22 2027 133/90 36.9 ??C (98.4 ??F) Oral 98 20 98 % 02/12/22 1518 127/84 36.5 ??C (97.7 ??F) Oral (!) 119 17 97 % 02/12/22 1304 (!) 142/94 36.6 ??C (97.9 ??F) Oral (!) 111 16 96 % 02/12/22 1225 (!) 145/91 36.7 ??C (98.1 ??F) Oral 93 16 98 % 02/12/22 1140 136/83 36.4 ??C (97.5 ??F) Oral 99 17 98 % 02/12/22 1116 136/87 36.3 ??C (97.3 ??F) Oral 100 18 -- Weight change: Intake/Output Summary (Last 24 hours) at 02/13/2022 1058 Last data filed at 02/13/2022 0952 Gross per 24 hour Intake 2700 ml Output 4113 ml Net -1413 ml General: NAD Eye: Conjunctivae clear ENT: No external lesions Neck: S/NT CV: reg Resp: CTA Abd: S/NT Ext: 1+ edema Skin: Warm/dry Neuro: nonfocal Psych: A&O Labs: Recent Results (from the past 24 hour(s)) Sodium Result Value Ref Range Sodium 128 (L) 135 - 145 mmol/L Magnesium Result Value Ref Range Magnesium 0.79 0.69 - 1.07 mmol/L Phosphorus Result Value Ref Range Phosphorus 2.8 2.5 - 4.5 mg/dL Basic Metabolic Panel (non-fasting) Result Value Ref Range Glucose Lvl 120 65 - 199 mg/dL BUN 30 (H) 10 - 20 mg/dL Creatinine 2.85 (H) 0.80 - 1.50 mg/dL Sodium 127 (L) 135 - 145 mmol/L Potassium 3.8 3.5 - 5.0 mmol/L Chloride 94 (L) 98 - 107 mmol/L CO2 27 22 - 31 mmol/L Anion Gap 6 5 - 15 mmol/L Calcium 7.0 (L) 8.5 - 10.5 mg/dL Estimated GFR 30 (L) >=60 mL/min/1.73 m?? Hemogram Result Value Ref Range WBC 24.5 (H) 4.0 - 9.5 x10(3)/mcL RBC 2.72 (L) 4.58 - 5.54 x10(6)/mcL Hemoglobin 8.0 (L) 13.7 - 16.5 g/dL Hematocrit 23.6 (L) 40.5 - 48.5 % MCV 86.8 82.9 - 93.1 fL MCH 29.4 27.5 - 32.1 pg MCHC 33.9 32.0 - 35.7 g/dL Platelets 201 145 - 357 x10(3)/mcL RDWSD 48.3 (H) 36.0 - 45.0 fL RDWCV 15.4 (H) 11.4 - 13.8 % MPV 9.7 7.6 - 12.9 fL nRBC % Auto 0.0 % nRBC Abs Auto 0.000 0.000 - 0.000 x10(3)/mcL Differential, Automated Result Value Ref Range Neutrophils % 44.9 % Neutr Abs (ANC) 11.00 (H) 1.70 - 6.10 x10(3)/mcL Lymphocytes % 8.8 % Lymphocytes Abs 2.2 0.9 - 3.2 x10(3)/mcL Monocytes % 9.3 % Monocyte Abs 2.3 (H) 0.3 - 0.9 x10(3)/mcL Eosinophils % 2.6 % Eosinophils Abs 0.6 (H) 0.0 - 0.4 x10(3)/mcL Basophils % 0.3 % Basophils Abs 0.1 0.0 - 0.1 x10(3)/mcL Immature Gran % 34.10 % Gemini Gran Abs 8.35 (H) 0.00 - 0.04 x10(3)/mcL Scan, Peripheral Blood Result Value Ref Range Plat Estimate Normal RBC Morphology Abnormal Hypochromia Slight Angel Cells 1-5 /HPF Stippled RBCs Present >1/HPF Toxic Granulation Present A/P: 1. Renal: persistent anuric ALTHEA post rhabdo. Hyponatremia persists but chemistries otherwise stable. - no indication for PRESS PULLER today - 1.5L/d fluid restriction - avoid nephrotoxins, including NSAIDS - renal dose meds Amy Pineda RN - 02/13/2022 10:17 AM EDT 1000 Pt arrived to PACU somnolent with oral airway in place, connected to monitor, alarms set and reviewed. Sinus tach Pt received 1L of fluids in OR. Discussed with Dr. Hidalgo on whether that fluid will count for today's intake given 1.5L FR. Per Dr. Hidalgo, ok for pt to have an additional 1L of fluid today (for total of 2L) with emphasis on protein consumption. 1020 Oral airway removed, pt arouses to voice, drowsy. +sensation to LUE and LLE with palpable pulses. Wound VAC x2 at 125 1040 Medicated for 10/10 pain in LLE and 7/10 pain in LUE. Pt calm and relaxed. Tolerating sips of water. Plan for CT on his way back to his room. 1100 CT unable to take pt for a little while. Plan to go back to his room. Report given to ÁNGEL Howe on [facility] Gina Montaño MD - 02/13/2022 7:20 AM EDT Acute Care Surgery Daily Progress Note Admission Date: 01/23/2022 ID: Alix Holland is a 31 y.o. male with HTN, angioedema requiring intubation 04/21, GERD, gastritis, esophagitis, urachal cyst, and polysubstance use (EtOH, cocaine, heroin) who was admitted to the MICU 01/23/2022 s/p VT arrest in the setting of being found down following fentanyl overdose and developing L forearm and L thigh compartment syndrome (s/p L forearm, L buttock, and L thigh fasciotomies) w/ subsequent rhabdomyolysis, renal failure, and hyperkalemia which required CVVH. He was transitioned to iHD and transferred to floor status 02/02, however he had persistent daily transfusion requirement from ongoing wound vac bleeding and returned to the OR x2 (02/04 and 02/05) for irrigation and debridement of fasciotomy wounds, however no focal source of bleeding was identified. He was transferred to the SICU 02/05 after L thigh wound vac filled with alexsandra blood and hgb dropped to 4.6 despite 6U pRBC. He went to IR for embolization of SGA pseudoaneurysm and to the OR for hematoma washout on 02/06. He returned to the OR for washout and debridement again on 02/08 and 02/09. He was subsequently lateralized to the ACS service and transferred to floor status on 02/10. His hospital course has also been notable for asymptomatic COVID-10 infection, C. difficil infection, transaminitis most likely from ischemic hepatitis, and bilateral globus pallidus infarctions (? 2/2toxic metabolic insult). Procedures: 01/23: L thigh fasciotomy, L lower leg fasciotomy, L buttock fasciotomy, L forearm fasciotomy 01/26: Debridements and wound vac change 01/29: Debridement of fasciotomies, closure of L lower leg fasciotomy, closure of dorsal forearm fasciotomy, partial closure L thigh fasciotomy 01/31: Debridement and wound vac change 02/02: Debridement and wound vac change 02/04: Debridement and wound vac change 02/05: Debridement and wound vac change, 02/06: IR embolization of SGA pseudoaneurysm 02/06: LLE hematoma evacuation and washout 02/08: washout and debridement LLE, vac change LUE 02/09: washout and debridement LLE with vac placement 02/11: washout and vac change, LLE and LUE Subjective Interval Events: - Seen by neuro: MRI brain with expected evolution of BG hypodensities, no further workup, re-consult when closer to d/c for EMG/NCS testing for peripheral nerves, signed off - HD yesterday, 3.9L off - No abd pain, dozing off during conversation this AM Objective Vitals: Last Value Range last 24 hrs Temperature Temp: 37.2 ??C (98.96 ??F) Temp: [36.3 ??C (97.3 ??F)-37.2 ??C (98.96 ??F)] Heart Rate Heart Rate: 100 Heart Rate: [93-119] Blood Pressure BP: (!) 137/91 BP: (122-145)/(82-94) Respiratory Rate Resp: 16 Resp: [16-20] SpO2 SpO2: 98 % SpO2: [96 %-100 %] O2 Device O2 Device: None (Room air) Intake/Output: 02/12 0701 - 02/13 0700 In: 1800 [P.O.:1150] Out: 3911 Physical Exam: GEN: resting comfortably in bed, pleasant, conversant, NAD HEENT: normocephalic, atraumatic CHEST: comfortable work of breathing on RA CV: regular rate, well perfused ABD: soft, nontender, nondistended. EXTR: moving spontaneously, no edema; L thigh wound vac in place, holding suction; L forearm wound vac in place, holding suction SKIN: WWP NEURO: AOx3, sleepy and dozing off during conversation, follows commands Labs: Recent Labs 02/13/22 0020 02/12/22 0030 02/11/22 0037 WBC 24.5* 23.2* 18.1* HGB 8.0* 6.9* 7.0* HCT 23.6* 20.7* 21.0* PLATELET 201 166 140* Recent Labs 02/13/22 0020 02/12/22 1645 02/12/22 0916 02/12/22 0030 02/11/22 1609 02/11/22 0820 02/11/22 0037 NA 127* 128* 125* 127* 129* < > 128* K 3.8 -- -- 4.4 -- -- 3.8 CL 94* -- -- 99 -- -- 96* CO2 27 -- -- 21* -- -- 26 BUN 30* -- -- 39* -- -- 23* CREATININE 2.85* -- -- 3.74* -- -- 2.42* GLUCOSE 120 -- -- 103 -- -- 125 CALCIUM 7.0* -- -- 6.1* -- -- 6.4* MAGNESIUM 0.79 -- -- 0.79 -- -- 0.75 PHOS 2.8 -- -- 2.7 -- -- 2.1* < > = values in this interval not displayed. C Diff Screen Date Value Ref Range Status 02/01/2022 Positive (A) Negative Final Comment: PCR Pos C. diff?? Positive (GDH positive, toxin antigen negative, toxin PCR positive) DNA from a toxigenic strain of C. difficile was detected, although the free toxin itself was not detected.?? These results cannot distinguish between colonization and infection. They must be interpreted within the patient???s overall clinical context. Consider other causes for diarrhea or the presence of a non-toxigenic strain. Patient needs to remain on Soap & Water Contact Precautions until discharge or approval by Infection Prevention. Abscess/Wound Aspirate Culture Date Value Ref Range Status 02/08/2022 (A) Final Many Pseudomonas aeruginosa Many Serratia marcescens Susceptibilities previously reported 02/08/2022 (A) Final Many Pseudomonas aeruginosa Many Serratia marcescens Anaerobic Culture Date Value Ref Range Status 02/09/2022 No anaerobic organisms isolated to date Final 02/08/2022 No anaerobic organisms isolated Final 02/08/2022 No anaerobic organisms isolated Final Tissue Culture Date Value Ref Range Status 02/09/2022 (A) Final Few Pseudomonas aeruginosa Few Serratia marcescens Susceptibilities previously reported Blood Culture Date Value Ref Range Status 02/06/2022 No growth at 5 days. Final 02/05/2022 No growth at 5 days. Final 02/01/2022 No growth at 5 days. Final Studies: 02/11/2022 MR Brain: IMPRESSION Evolution of bilateral globi pallidi injury. Question subtle developing deep white matter changes. Mild increased caliber of the ventricular system which may reflect reduced edema or volume loss secondary to recent toxic metabolic insult. Assessment and Plan Alix Holland is a 31 y.o. male with HTN, angioedema requiring intubation 04/21, GERD, gastritis, esophagitis, urachal cyst, and polysubstance use (EtOH, cocaine, heroin) who was admitted 01/23/2022 forcompartment syndrome and rhabdomyalysis after being found down. He is now s/p multiple fasciotomies and debridements of LLE and L forearm. Mr. Holland has had a prolonged, complicated hospital course which has been significant for renal replacement therapy secondary to rhabdomyolysis, ICU admissions, multiple debridements, and persistent transfusion requirement. He was transferred to the floor 02/10 and appears to be slowly progressing towards recovery. Plan for him to go to the OR again 02/13 for washout and wound VAC change. Will likelyrequire ongoing debridements and wound VAC changes in the OR. His wound cultures are growing Pseudomonas and Serratia for which he has been covered with by Zosyn.ID consulted 02/11. Zosyn discontinued and transitioned to cefepime per their recs. He also has C. difficile for which he is being treated with p.o. vancomycin which we will continue for 7 days following discontinuation of cefepime. He has had an increasing leukocytosis over the past few days (24.5/23.2/18.1), will assess his wounds in the OR today, however previously wound infections seemed to be resolving on last debridement/vac change. His leukocytosis could also possibly be related to unresolvingC diff infection, however no abd pain today. Will obtain KUB and touch base with ID regarding possible need to escalate c diff management. Will consider CT abdomen/pelvis/thigh Nephrology is following for rhabdomyolysis and renal failure. He will continue on iHD per nephrologyrecs. Next HD run planned for 02/15. He is also on a 1.5 L total fluid restriction, which includes both p.o. and IV fluids, due to inability to excrete free water and ongoing hyponatremia. From a nutrition standpoint he has not been reaching his nutrition goals. This is likely due to a multitude of reasons, namely frequently missing meals due to being n.p.o. for q2d debridement and woundVAC changes in the OR, increased requirements due to size of wounds, extra protein losses from dialysis, and limitations on supplemental nutrition modalities given total fluid restriction. Continuing Ensure compact to augment nutrition goals. Continuing to work with nutrition team and nephrology team to strike balance between fluid restrictions and nutrition goals. We will also attempt to place him on the OR schedule for morning cases only in order to avoid being n.p.o. all day, however this solution is limited depending on OR schedule acuity of cases. Pain regimen with scheduled Tylenol and Marinol, PRN oxy, and PRN IV Dilaudid only for breakthrough pain. He appears to have adequate pain control with this current regimen, will continue to monitor. MRI brain yesterday, called to touch base with neurology regarding findings, awaiting recs. Plan: Neuro: #Pain - Scheduled PO Tylenol - Marinol 15mg BID - PO Oxycodone PRN - IV Dilaudid 0.6mg for breakthrough pain not controlled with oxy - APS re-consulted 02/11, appreciate recs. S/o 02/12 #Polysubstance abuse, found down following fentanyl ingestion, Toxic metabolic encephalopathy, bilateral globus pallidum infarcts - Thiamine, folate - Q shift neurovascular checks - Neurology consulted 01/23. Signed off 02/12 --- expected BG evolution on MRI. No further w/u --- Re-consult neuro closer to d/c for EMG/NCS testing for peripheral neuropathy CV: - Persistent tachycardia, likely d/t increased metabolic demand from wounds and infections - no active interventions, CTM Resp: - Encourage IS, OOB - No active interventions, CTM GI: - Senna-docusate BID - Rectal tube in place FEN: F: fluid restriction per nephrology recs below E: CTM, supplement prn N: NPO diet (Give Meds) - Nutrition team consulted, appreciate recs --- Not meeting nutrition goals. Needs > 100 g protein/day with iHD and wound vac losses & healing needs --- Add Ensure Compact --- Could consider PPN as a nutrition bridge but w/ current fluid restriction, nutrition provisions would be limited Renal/: - No active interventions, CTM - Nephrology consulted 01/23, appreciate recs --- iHD MWF --- Fluid restriction 1.5L/day (oral and IV) for mild hyponatremia in setting of HD dependence and unable to excrete water Heme: - No active interventions, CTM - DVT ppx per below - Transfuse for Hgb < 7 ID: - 02/08 and 02/09 wound cx: Pseudomonas, serratia - Increasing leukocytosis 02/13; will touch base with ID today and obtain KUB to assess possible unresolving c diff as source, will assess fasciotomies in OR today as possible source. Consider CT - ID consulted 02/11, appreciate recs - Cont Cefepime (02/11 - ) - Cont PO Vanc BID for c diff (02/01- ) --- PO vanc to continue x7 days after Cefepime ends - s/p Unasyn (01/23-01/26 and 01/29-02/01), Cefazolin (01/26-01/29 and 02/01-02/07), Zosyn (02/08-02/11) - s/p asymptomatic Covid+ (now resolved, off precautions) Endo: - No active interventions, CTM MSK: - s/p multiple fasciotomies 01/23: L thigh fasciotomy (wound vac'd), L gluteal fasciotomy, L lower leg fasciotomy (closed 01/29), L volar forearm fasciotomy (wound vac'd), L dorsal forearm fasciotomy (closed 01/29) - s/p multiple OR debridements and wound vac changes. Plan for OR again today (02/13) - Plastics consulted 02/04, appreciate recs --- Not ready for definitive reconstruction at this time given active infection, will continue to follow - Wound care consulted for excoriations around penis and rectum, orders placed per recs Prophy: Resp: OOB, IS DVT: SQH TID, IPCs, OOB Lines/Drains/Tubes/Airways: - R IJ triple lumen HD catheter - Rectal tube Dispo: - Floor status - PT/OT consulted 01/27, appreciate recs Code Status: Attempt Cardiopulmonary Resuscitation - Inpatient Gina Montaño MD 02/13/2022 Acute Care Surgery Team pager [phone] Vidhya Peñaloza MD - 02/12/2022 8:33 PM EDT NEPHROLOGY PROGRESS NOTE PATIENT: Alix Holland : 1990 Interval History: Patient seen and examined on HD. Had a 4 hour session. Uncomplicated. Was given 1 unit pRBC during the HD. Is not making much urine. Next HD is on Tuesday. I/O last 3 completed shifts: In: 2350 [P.O.:1500; I.V.:300; Blood:350; IV Piggyback:200] Out: 4866 [Other:4836; Blood:30] No intake/output data recorded. Assessment and Plan: A 31 year old male admitted after he had V Tach arrest sec to hyperkalemia sec to rhabdomyolysis, sec to drug abuse, complicated with compartment syndrome s/p Left forearm/ left thigh/left leg fasciotomies, anuric renal failure s/p CVVH, now transitioned to HD seen and examined. # Anuric renal failure #Hyponatremia #Anemia #Hypoalbuminemia #deconditioning. - Patient is IHD dependent as of now. He will have his next session on Tuesday. Meanwhile, we need to monitor patient for any urine output. - Anemia of blood loss. Patient received 1 unit pRBC today. The role of EPO with the absence of CKD is suboptimal and is not proven. Encourage oral iron supplements. - Hyponatremia is sec to copious oral intake. Patient should be on 1.5 liter/day fluid restriction. - Diet nutrition for severe protein-calorie malnutrition. His albumin is 1.3 g/dl in the setting of prolonged hospital/ICU admission. - Pseudohypocalcemia. -Corrected calcium is within normal limits. Please have a diet plan for the patient on a daily basis to promote good healing. - Patient is hemodynamically stable. PHYSICAL EXAM: Last value Temperature Temp: 36.9 ??C (98.4 ??F) Heart Rate Heart Rate: 98 Blood Pressure BP: 133/90 Respiratory Rate Resp: 20 SpO2 SpO2: 98 % General - AAOx3. No acute distress HEENT - Atraumatic. Normocephalic Neck - No JVD Respiratory - B/L CTA. No coarse breath sounds Cardiovascular - S1S2N Abdomen - Soft. NT Extremities - Edema + Psychiatric - No agitation Neurological - No FND Current Facility-Administered Medications Medication Dose Route Frequency Provider Last Rate Last Admin ??? ascorbic acid (Vitamin C) (Vitamin C) tablet 250 mg 250 mg Oral Daily Gina Montaño MD 250 mg at 02/12/22 1341 ??? miconazole nitrate (Remedy Phytoplex) 2 % ointment Topical (Top) BID Gina Montaño MD ??? vitamin B Complex-vitamin C-folic Acid (Eileen-scott) 0.8 mg per tablet 1 tablet 1 tablet Oral Daily Gina Montaño MD 1 tablet at 02/12/22 1341 ??? oxyCODONE (Roxicodone) tablet 10 mg 10 mg Oral Q3H PRN Gina Montaño MD Or ??? oxyCODONE (Roxicodone) tablet 15 mg 15 mg Oral Q3H PRN Gina Motnaño MD Or ??? oxyCODONE (Roxicodone) tablet 20 mg 20 mg Oral Q3H PRN Gina Montaño MD 20 mg at 02/12/22 1839 ??? dronabinoL (Marinol) capsule 15 mg 15 mg Oral BID Gian Montaño MD 15 mg at 02/12/22 2018 ??? HYDROmorphone (Dilaudid) (0.5 mg/0.5 mL) injection syringe 0.6 mg 0.6 mg Intravenous Q4H PRN Gina Montaño MD 0.6 mg at 02/12/22 1758 ??? ceFEPime (Maxipime) 2g vial attach to sodium chloride 0.9% 100 mL Mini-Bag Plus 2 g 2 g Intravenous Q8H Gina Montaño MD 33.3 mL/hr at 02/12/22 2017 2 g at 02/12/22 2017 ??? heparin (porcine) (5,000 units/1 mL) subcutaneous injection 5,000 Units 5,000 Units [id number] [place] Kaitlyn Rock MD 5,000 Units at 02/12/22 1340 ??? vancomycin (Vancocin) capsule 125 mg 125 mg Oral BID Kaitlyn Rock MD 125 mg at 02/12/222017 ??? lactulose (Chronulac) (0.67 gram/mL) oral liquid 20 g 20 g Oral BID PRN Kaitlyn Rock MD ??? alteplase (Cathflo) injection 1-4 mg 1-4 mL INTRA-CATHETER Once in dialysis PRN Kaitlyn Rock MD 2.4 mg at 02/07/22 0520 ??? senna-docusate (Pericolace) 8.6-50 mg per tablet 2 tablet 2 tablet Oral BID Kaitlyn Rock MD 2 tablet at 02/09/22 0813 ??? folic acid (Folvite) tablet 1,000 mcg 1,000 mcg Oral Daily Kaitlyn Rock MD 1,000 mcg at 02/12/22 1341 ??? thiamine (Vitamin B1) tablet 100 mg 100 mg Oral Daily Kaitlyn Rock MD 100 mg at 02/12/22 1341 ??? acetaminophen (Tylenol) tablet 1,000 mg 1,000 mg Oral Q8H [place] Kaitlyn Rock MD 1,000 mg at 02/12/22 1341 Recent Results (from the past 18 hour(s)) Sodium Collection Time: 02/12/22 9:16 AM Result Value Ref Range Sodium 125 (L) 135 - 145 mmol/L Prepare RBC Collection Time: 02/12/22 9:55 AM Result Value Ref Range Dispensed? Yes Sodium Collection Time: 02/12/22 4:45 PM Result Value Ref Range Sodium 128 (L) 135 - 145 mmol/L Vidhya Anabela #[id number] Associated attestation - Cecilio Gee MD - 02/12/2022 9:29 PM EDT Renal Staff Addendum Patient seen and examined with Dr. Peñaloza. I agree with the above note which represents our joint assessment and plan with the following additions: Seen and examined on hemodialysis. Multiple visits for volume overload. Based on residual blood volume curve, UF goal was increased and tolerated well. Continue fluid restriction. Sg Prara RN - 02/12/2022 6:31 PM EDT OUTCOME EVALUATION NOTE: ?? OUTCOME SUMMARY: Pt alert and oriented x4. On room air, no SOB and dyspnea. 8/10 general pain, relief with IV dilaudid and PRN oral oxycodone. Wound vac to Left thigh and arm intact, no leak, serosanguinous drainage. Baseline numbness to bilateral legs. Left arm, scrotum, and bilateral legs with +3 edema. Brown liquidBM, flexiseal intact. ?? PLAN MOVING FORWARD: Pain management Monitor labs Water restriction of 1500mL HD NPO after midnight ?? INDIVIDUALIZED FALL PREVENTION INTERVENTIONS: ?? Patient-specific fall risk factors per assessment: [current deficits]:?pain, medication, general weakness ?? Assistance [level of assistance required for transfers and ambulation]:?? 2A,Lift ?? Supervision [direct monitoring required during toileting and ADLs]:?Hands on ?? Surveillance [continuous indirect monitoring]: Masimo,??Purposeful??rounding ?? CARE PLAN GOAL OUTCOME EVALUATION:? Ongoing Meghan Prabhakar, PT - 02/12/2022 3:46 PM EDT Physical Therapy Contact Note Attempted to see pt for physical therapy this afternoon however despite encouragment pt declined 2/2fatigue from hemodialysis and MRI earlier today. Plan to follow up next week. Meghan Prabhakar, PT DPT Pager #[phone] 02/12/2022 Physical Therapy Rehabilitation Department Parrish Betancourt MD - 02/12/2022 1:04 PM EDT Acute Care Surgery Daily Progress Note Admission Date: 01/23/2022 ID: Alix Holland is a 31 y.o. male with HTN, angioedema requiring intubation 04/21, GERD, gastritis, esophagitis, urachal cyst, and polysubstance use (EtOH, cocaine, heroin) who was admitted to the MICU 01/23/2022 s/p VT arrest in the setting of being found down following fentanyl overdose and developing L forearm and L thigh compartment syndrome (s/p L forearm, L buttock, and L thigh fasciotomies) w/ subsequent rhabdomyolysis, renal failure, and hyperkalemia which required CVVH. He was transitioned to iHD and transferred to floor status 02/02, however he had persistent daily transfusion requirement from ongoing wound vac bleeding and returned to the OR x2 (02/04 and 02/05) for irrigation and debridement of fasciotomy wounds, however no focal source of bleeding was identified. He was transferred to the SICU 02/05 after L thigh wound vac filled with alexsandra blood and hgb dropped to 4.6 despite 6U pRBC. He went to IR for embolization of SGA pseudoaneurysm and to the OR for hematoma washout on 02/06. He returned to the OR for washout and debridement again on 02/08 and 02/09. He was subsequently lateralized to the ACS service and transferred to floor status on 02/10. His hospital course has also been notable for asymptomatic COVID-10 infection, C. difficil infection, transaminitis most likely from ischemic hepatitis, and bilateral globus pallidus infarctions (? 2/2toxic metabolic insult). Procedures: 01/23: L thigh fasciotomy, L lower leg fasciotomy, L buttock fasciotomy, L forearm fasciotomy 01/26: Debridements and wound vac change 01/29: Debridement of fasciotomies, closure of L lower leg fasciotomy, closure of dorsal forearm fasciotomy, partial closure L thigh fasciotomy 01/31: Debridement and wound vac change 02/02: Debridement and wound vac change 02/04: Debridement and wound vac change 02/05: Debridement and wound vac change, 02/06: IR embolization of SGA pseudoaneurysm 02/06: LLE hematoma evacuation and washout 02/08: washout and debridement LLE, vac change LUE 02/09: washout and debridement LLE with vac placement 02/11: washout and vac change, LLE and LUE Subjective Interval Events: - APS consulted, pain regimen adjusted, pain appears to be well controlled this morning - ID consulted, recommend d/c Zosyn and starting cefepime - Nephro broadened total fluid restriction to 2L - Added nutrition shakes Objective Vitals: Last Value Range last 24 hrs Temperature Temp: 36.5 ??C (97.7 ??F) Temp: [36.3 ??C (97.3 ??F)-37.3 ??C (99.14 ??F)] Heart Rate Heart Rate: (!) 119 Heart Rate: [93-119] Blood Pressure BP: 127/84 BP: (121-145)/(82-94) Respiratory Rate Resp: 17 Resp: [16-18] SpO2 SpO2: 97 % SpO2: [96 %-100 %] O2 Device O2 Device: None (Room air) Intake/Output: 02/11 0701 - 02/12 0700 In: 1000 [P.O.:700; I.V.:300] Out: 955 Physical Exam: GEN: resting comfortably in bed, pleasant, conversant, NAD HEENT: normocephalic, atraumatic CHEST: comfortable work of breathing on RA CV: regular rate, well perfused ABD: soft, nontender, nondistended. EXTR: moving spontaneously, no edema; L thigh wound vac in place, holding suction; L forearm wound vac in place, holding suction SKIN: WWP NEURO: AOx3, sleepy and occasionally dozing off during conversation, follows commands Labs: Recent Labs 02/12/22 0030 02/11/22 0037 02/10/22 0000 WBC 23.2* 18.1* 16.1* HGB 6.9* 7.0* 8.6* HCT 20.7* 21.0* 25.2* PLATELET 166 140* 121* Recent Labs 02/12/22 0916 02/12/22 0030 02/11/22 1609 02/11/22 0820 02/11/22 0037 02/10/22 0905 02/10/22 0000 02/09/22 1735 NA 125* 127* 129* 127* 128* < > 130* 132* 132* K -- 4.4 -- -- 3.8 -- 3.9 4.3 CL -- 99 -- -- 96* -- 96* 100 CO2 -- 21* -- -- 26 -- 22 21* BUN -- 39* -- -- 23* -- 21* -- CREATININE -- 3.74* -- -- 2.42* -- 1.89* -- GLUCOSE -- 103 -- -- 125 -- 164 -- CALCIUM -- 6.1* -- -- 6.4* -- 7.2* -- MAGNESIUM -- 0.79 -- -- 0.75 -- 0.87 -- PHOS -- 2.7 -- -- 2.1* -- 3.1 3.2 < > = values in this interval not displayed. C Diff Screen Date Value Ref Range Status 02/01/2022 Positive (A) Negative Final Comment: PCR Pos C. diff?? Positive (GDH positive, toxin antigen negative, toxin PCR positive) DNA from a toxigenic strain of C. difficile was detected, although the free toxin itself was not detected.?? These results cannot distinguish between colonization and infection. They must be interpreted within the patient???s overall clinical context. Consider other causes for diarrhea or the presence of a non-toxigenic strain. Patient needs to remain on Soap & Water Contact Precautions until discharge or approval by Infection Prevention. Abscess/Wound Aspirate Culture Date Value Ref Range Status 02/08/2022 (A) Final Many Pseudomonas aeruginosa Many Serratia marcescens Susceptibilities previously reported 02/08/2022 (A) Final Many Pseudomonas aeruginosa Many Serratia marcescens Anaerobic Culture Date Value Ref Range Status 02/09/2022 No anaerobic organisms isolated to date Final 02/08/2022 No anaerobic organisms isolated Final 02/08/2022 No anaerobic organisms isolated Final Tissue Culture Date Value Ref Range Status 02/09/2022 (A) Final Few Pseudomonas aeruginosa Few Serratia marcescens Susceptibilities previously reported Blood Culture Date Value Ref Range Status 02/06/2022 No growth at 5 days. Final 02/05/2022 No growth at 5 days. Final 02/01/2022 No growth at 5 days. Final Studies: 02/11/2022 MR Brain: IMPRESSION Evolution of bilateral globi pallidi injury. Question subtle developing deep white matter changes. Mild increased caliber of the ventricular system which may reflect reduced edema or volume loss secondary to recent toxic metabolic insult. Assessment and Plan Alix Holland is a 31 y.o. male with HTN, angioedema requiring intubation 04/21, GERD, gastritis, esophagitis, urachal cyst, and polysubstance use (EtOH, cocaine, heroin) who was admitted 01/23/2022 forcompartment syndrome and rhabdomyalysis after being found down. He is now s/p multiple fasciotomies and debridements of LLE and L forearm. Mr. Holland has had a prolonged, complicated hospital course which has been significant for renal replacement therapy secondary to rhabdomyolysis, ICU admissions, multiple debridements, and persistent transfusion requirement. He was transferred to the floor 02/10 and appears to be slowly progressing towards recovery. Plan for him to go to the OR again tomorrow for washout and wound VAC change. Will likely require ongoing debridements and wound VAC changes in the OR. His wound cultures are growing Pseudomonas and Serratia for which he has been covered with by Zosyn.ID consulted 02/11. Zosyn discontinued and transitioned to cefepime per their recs. He also has C. difficile for which he is being treated with p.o. vancomycin which we will continue for 7 days following discontinuation of cefepime. Nephrology is following for rhabdomyolysis and renal failure. He will continue on iHD per nephrologyrecs. Plan for 1 unit of blood tomorrow with HD. He is also on a 1.5 L total fluid restriction, which includes both p.o. and IV fluids, due to inability to excrete free water and ongoing hyponatremia. From a nutrition standpoint he has not been reaching his nutrition goals. This is likely due to a multitude of reasons, namely frequently missing meals due to being n.p.o. for q2d debridement and woundVAC changes in the OR, increased requirements due to size of wounds, extra protein losses from dialysis, and limitations on supplemental nutrition modalities given total fluid restriction. Continuing Ensure compact to augment nutrition goals. Continuing to work with nutrition team and nephrology team to strike balance between fluid restrictions and nutrition goals. We will also attempt to place him on the OR schedule for morning cases only in order to avoid being n.p.o. all day, however this solution is limited depending on OR schedule acuity of cases. Pain regimen with scheduled Tylenol and Marinol, PRN oxy, and PRN IV Dilaudid only for breakthrough pain. He appears to have adequate pain control with this current regimen, will continue to monitor. MRI brain yesterday, called to touch base with neurology regarding findings, awaiting recs. Plan: Neuro: #Pain - Scheduled PO Tylenol - Marinol 15mg BID - PO Oxycodone PRN q3h - IV Dilaudid 0.6mg for breakthrough pain not controlled with oxy - APS re-consulted 02/11, appreciate recs. S/o 02/12 #Polysubstance abuse, found down following fentanyl ingestion, Toxic metabolic encephalopathy, bilateral globus pallidum infarcts - Thiamine, folate - Q shift neurovascular checks - Neurology consulted 01/23, appreciate recs --- Repeat MRI brain 02/12. Awaiting neurology recs CV: - Persistent tachycardia, likely d/t increased metabolic demand from wounds and infections - no active interventions, CTM Resp: - Encourage IS, OOB - No active interventions, CTM GI: - Senna-docusate BID - Rectal tube in place FEN: F: fluid restriction per nephrology recs below E: CTM, supplement prn N: Regular diet NPO diet (Give Meds) - Nutrition team consulted, appreciate recs --- Not meeting nutrition goals. Needs > 100 g protein/day with iHD and wound vac losses & healing needs --- Add Ensure Compact --- Could consider PPN as a nutrition bridge but w/ current fluid restriction, nutrition provisions would be limited Renal/: - No active interventions, CTM - Nephrology consulted 01/23, appreciate recs --- iHD MWF --- Fluid restriction 2L/day (oral and IV) for mild hyponatremia in setting of HD dependence and unable to excrete water Heme: - No active interventions, CTM - DVT ppx per below - Transfuse for Hgb < 7 - Will receive 1U pRBC with HD today (02/12) ID: - 02/08 and 02/09 wound cx: Pseudomonas, serratia - ID consulted 02/11, appreciate recs - Cont Cefepime (02/11 - ) - Cont PO Vanc BID for c diff (02/01- ) --- PO vanc to continue x7 days after Cefepime ends - s/p Unasyn (01/23-01/26 and 01/29-02/01), Cefazolin (01/26-01/29 and 02/01-02/07), Zosyn (02/08-02/11) - s/p asymptomatic Covid+ (now resolved, off precautions) Endo: - No active interventions, CTM MSK: - s/p multiple fasciotomies 01/23: L thigh fasciotomy (wound vac'd), L gluteal fasciotomy, L lower leg fasciotomy (closed 01/29), L volar forearm fasciotomy (wound vac'd), L dorsal forearm fasciotomy (closed 01/29) - s/p multiple OR debridements and wound vac changes. Plan for OR again tomorrow (02/13) - Plastics consulted 02/04, appreciate recs --- Not ready for definitive reconstruction at this time given active infection, will continue to follow - Wound care consulted for excoriations around penis and rectum, orders placed per recs Prophy: Resp: OOB, IS DVT: SQH TID, IPCs, OOB Lines/Drains/Tubes/Airways: - R IJ triple lumen HD catheter - Rectal tube Dispo: - Floor status - PT/OT consulted 01/27, appreciate recs Code Status: Attempt Cardiopulmonary Resuscitation - Inpatient Gina Montaño MD 02/12/2022 Acute Care Surgery Team pager [phone] SURGICAL ATTENDING NOTE: Pt seen and examined with the resident staff on AM rounds and I agree with the above note and plan with the following additions/modifications. Events over the last 24 hours include antibiotic changed to cefepime along with his enteral vancomycin. He did go to the operating room yesterday at which time the wound was found to be nicely healing with no evidence of ongoing infection in the left lower extremity. The left upper extremity wound bed was granulating nicely and almost ready for skin graftingpossibly next week. He did have an MRI of the brain performed last night as requested by neurology with their final recommendations pending. At this point time we will continue with the fluid restriction as per the renal team. They are planning on taking Entero-H D today. We will await neurology recommendations in regards to the MRI performed last night. Patient will need to be n.p.o. after midnight for a trip to the operating room tomorrow for hopefully the start of wound closure in addition to theVAC sponge placement. Otherwise as noted above. Tasha Matthews OTA - 02/12/2022 10:15 AM EDT 02/12/22 1015 Evaluation & Treatment Document Type contact Total Minutes, Occupational Therapy 0 Comment, Session Not Performed Attempted to see pt today for OT treatment. Pt off the floor at HD. Will need updated actvity orders if pt is no longer on bedrest. OT will follow up next week. Vidhya Peñaloza MD - 02/11/2022 10:24 PM EDT NEPHROLOGY PROGRESS NOTE PATIENT: Alix Holland : 1990 Interval History: Patient seen and examined at the bedside. Intake/Output Summary (Last 24 hours) at 02/11/2022 2224 Last data filed at 02/11/2022 1900 Gross per 24 hour Intake 1070 ml Output 30 ml Net 1040 ml Patient had drunk about 4.5 liter of power drinks in the preceding 24 hours. He admits to being thirsty. He was educated about sodium level and educated to fluid restrict. The primary team was also called and told personally to observe fluid restriction 1.5 L per day. Assessment and Plan: A 31 year old male with PMHx cardiac arrest sec to V tach sec to hyperkalemia in the setting of severe rhabdomyolysis, drug abuse, compartment syndrome s/p Left forearm, left thighand left leg fasciotomies, MOSF sec to the above, now in anuric renal failure seen and examined. - Anuric renal failure. - Hyponatremia Patient has been transitioned to iHD. He will have iHD in the morning. Educated about fluid restriction. Potassium, phosphorus, bicarbonate reviewed. Severe hypoalbuminemia - discussed with the team. Patient is going to have dietary supplementation. PHYSICAL EXAM: Last value Temperature Temp: 37.3 ??C (99.14 ??F) Heart Rate Heart Rate: (!) 107 Blood Pressure BP: 138/88 Respiratory Rate Resp: 17 SpO2 SpO2: 99 % General - AAOx4. No acute distress HEENT - Atraumatic. Normocephalic Neck - No JVD Respiratory - B/L CTA Cardiovascular - S1S2N Abdomen - Soft. NT Extremities - Trace edema. Psychiatric - No agitation Neurological - No FND Current Facility-Administered Medications Medication Dose Route Frequency Provider Last Rate Last Admin ??? [START ON 02/12/2022] vitamin B Complex-vitamin C-folic Acid (Eileen-scott) 0.8 mg per tablet 1 tablet 1 tablet Oral Daily Gina Montaño MD ??? [START ON 02/12/2022] ascorbic acid (Vitamin C) (Vitamin C) tablet 500 mg 500 mg Oral Daily Gina Montaño MD ??? oxyCODONE (Roxicodone) tablet 10 mg 10 mg Oral Q3H PRN Gina Montaño MD Or ??? oxyCODONE (Roxicodone) tablet 15 mg 15 mg Oral Q3H PRN Gina Montaño MD Or ??? oxyCODONE (Roxicodone) tablet 20 mg 20 mg Oral Q3H PRN Gina Montaño MD 20 mg at 02/11/221933 ??? dronabinoL (Marinol) capsule 15 mg 15 mg Oral BID Gina Montaño MD 15 mg at 02/11/222118 ??? HYDROmorphone (Dilaudid) (0.5 mg/0.5 mL) injection syringe 0.6 mg 0.6 mg Intravenous Q4H PRN Gina Montaño MD 0.6 mg at 02/11/222153 ??? ceFEPime (Maxipime) 2g vial attach to sodium chloride 0.9% 100 mL Mini-Bag Plus 2 g 2 g Intravenous Q8H Gina Montaño MD 33.3 mL/hr at 02/11/222118 2 g at 02/11/222118 ??? heparin (porcine) (5,000 units/1 mL) subcutaneous injection 5,000 Units 5,000 Units [id number] [facility] Kaitlyn Rock MD 5,000 Units at 02/11/222118 ??? vancomycin (Vancocin) capsule 125 mg 125 mg Oral BID Kaitlyn Rock MD 125 mg at 02/11/222118 ??? lactulose (Chronulac) (0.67 gram/mL) oral liquid 20 g 20 g Oral BID PRN Kaitlyn Rock MD ??? alteplase (Cathflo) injection 1-4 mg 1-4 mL INTRA-CATHETER Once in dialysis PRN Kaitlyn Rock MD 2.4 mg at 02/07/22 0520 ??? senna-docusate (Pericolace) 8.6-50 mg per tablet 2 tablet 2 tablet Oral BID Kaitlyn Rock MD 2 tablet at 02/09/22 0813 ??? folic acid (Folvite) tablet 1,000 mcg 1,000 mcg Oral Daily Kaitlyn Rock MD 1,000 mcg at 02/11/22813 ??? thiamine (Vitamin B1) tablet 100 mg 100 mg Oral Daily Kaitlyn Rock MD 100 mg at 02/11/22813 ??? acetaminophen (Tylenol) tablet 1,000 mg 1,000 mg Oral Q8H [facility] Kaitlyn Rock MD 1,000 mg at 02/11/222118 Recent Results (from the past 18 hour(s)) Sodium Collection Time: 02/11/22 8:20 AM Result Value Ref Range Sodium 127 (L) 135 - 145 mmol/L Sodium Collection Time: 02/11/22 4:09 PM Result Value Ref Range Sodium 129 (L) 135 - 145 mmol/L Vidhya Peñaloza #[id number] Associated attestation - Cecilio Gee MD - 02/11/2022 10:39 PM EDT Renal Staff Addendum Patient seen and examined with Dr. Peñaloza. I agree with the above note which represents our joint assessment and plan with the following additions: Persistent anuria in the setting of rhabdo, covid. Worsening hyponatremia with high PO fluid intake. - HD tomorrow on low Na bath - 2L/d fluid restriction - would decrease vit C to 250mg daily in light of renal function Gina Montaño MD - 02/11/2022 3:39 PM EDT Post-Operative Check Alix Holland is a 31 y.o. male s/p Procedure(s): DEBRIDEMENT SKIN AND SUBCU, LOWER EXTREMITY (WRVU 1.01) DRESSING CHANGE (FOR OTHER THAN GALLOWAY) UNDER ANES., UPPER EXTREMITY (WRVU 0.86) MODIFIER WOUND VAC S: No nausea/vomiting, chest pain, SOB. Endorses right thigh pain that responds to the current pain regimen. Denies bowel movement, endorses urination, flatus since surgery. O: Temp: [36.7 ??C (98.1 ??F)-36.9 ??C (98.4 ??F)] Heart Rate: [101-110] Resp: [14-20] BP: (122-144)/(76-97) SpO2: [91 %-97 %] Heart Rate from SpO2: -- I/O last 3 completed shifts: In: 6120 [P.O.:4850; I.V.:1009; Other:45; IV Piggyback:216] Out: 28523 [Other:86202; Stool:200] I/O this shift: In: 600 [P.O.:300; I.V.:300] Out: 30 [Blood:30] Recent Results (from the past 24 hour(s)) Sodium Result Value Ref Range Sodium 132 (L) 135 - 145 mmol/L Magnesium Result Value Ref Range Magnesium 0.75 0.69 - 1.07 mmol/L Phosphorus Result Value Ref Range Phosphorus 2.1 (L) 2.5 - 4.5 mg/dL Basic Metabolic Panel (non-fasting) Result Value Ref Range Glucose Lvl 125 65 - 199 mg/dL BUN 23 (H) 10 - 20 mg/dL Creatinine 2.42 (H) 0.80 - 1.50 mg/dL Sodium 128 (L) 135 - 145 mmol/L Potassium 3.8 3.5 - 5.0 mmol/L Chloride 96 (L) 98 - 107 mmol/L CO2 26 22 - 31 mmol/L Anion Gap 6 5 - 15 mmol/L Calcium 6.4 (CRIT) 8.5 - 10.5 mg/dL Estimated GFR 36 (L) >=60 mL/min/1.73 m?? Hemogram Result Value Ref Range WBC 18.1 (H) 4.0 - 9.5 x10(3)/mcL RBC 2.44 (L) 4.58 - 5.54 x10(6)/mcL Hemoglobin 7.0 (L) 13.7 - 16.5 g/dL Hematocrit 21.0 (L) 40.5 - 48.5 % MCV 86.1 82.9 - 93.1 fL MCH 28.7 27.5 - 32.1 pg MCHC 33.3 32.0 - 35.7 g/dL Platelets 140 (L) 145 - 357 x10(3)/mcL RDWSD 50.0 (H) 36.0 - 45.0 fL RDWCV 15.9 (H) 11.4 - 13.8 % MPV 10.0 7.6 - 12.9 fL nRBC % Auto 0.0 % nRBC Abs Auto 0.000 0.000 - 0.000 x10(3)/mcL Differential, Automated Result Value Ref Range Neutrophils % 39.1 % Neutr Abs (ANC) 7.07 (H) 1.70 - 6.10 x10(3)/mcL Lymphocytes % 12.7 % Lymphocytes Abs 2.3 0.9 - 3.2 x10(3)/mcL Monocytes % 11.4 % Monocyte Abs 2.1 (H) 0.3 - 0.9 x10(3)/mcL Eosinophils % 2.9 % Eosinophils Abs 0.5 (H) 0.0 - 0.4 x10(3)/mcL Basophils % 0.5 % Basophils Abs 0.1 0.0 - 0.1 x10(3)/mcL Immature Gran % 33.40 % Gemini Gran Abs 6.04 (H) 0.00 - 0.04 x10(3)/mcL Green Tube HOLD Result Value Ref Range Green Hold Sample in lab. Scan, Peripheral Blood Result Value Ref Range Plat Estimate Decreased RBC Morphology Abnormal Polychromasia Present >5/HPF Ovalocytes 1-5 /HPF Stippled RBCs Present >1/HPF Dohle Bodies Present Sodium Result Value Ref Range Sodium 127 (L) 135 - 145 mmol/L Physical Exam Gen: A0x3, NAD, resting comfortably CVS: regular rate and rhythm Resp: CTAB, breathing comfortably on RA : no ayala Ext: SCDs in place, WWP Wounds: meplex covering L calf, L posterior forearm fasciotomies (now closed); wound vac covering L thigh, L anterior forearm fasciotomies- wound vacs draining red thick liquid, vacs holding suction AP Alix Holland is a 31 y.o. male s/p debridement and vac change of his L thigh and anterior forearm fasciotomies. He is HDS and is tolerating a solid diet. He endorses R thigh pain that is responding to his current pain regimen. He has urinated and passed flatus since surgery. He denies a BM. - continue post operative plan - pain controlled - hemodynamically stable Jose Guadalupe Gandhi 02/11/2022 Gina Montaño MD Acute Care Surgery Team Pager [phone] 02/11/22 Sg Parra RN - 02/11/2022 2:36 PM EDT OUTCOME EVALUATION NOTE: ?? OUTCOME SUMMARY: Pt alert and oriented x4. On room air, no SOB and dyspnea. 8/10 general pain, relief with HAND STRIPER dilaudid and PRN oral oxycodone. Wound vac to Left thigh and arm intact, no leak, serosanguinous drainage. Baseline numbness to bilateral legs. Left arm, scrotum, and bilateral legs with +3 edema. Brown liquid BM, flexiseal intact. ?? PLAN MOVING FORWARD: Pain management Monitor labs Water restriction of 1500mL HD ?? INDIVIDUALIZED FALL PREVENTION INTERVENTIONS: ?? Patient-specific fall risk factors per assessment: [current deficits]:?pain, medication, general weakness ?? Assistance [level of assistance required for transfers and ambulation]:?? 2A,Lift ?? Supervision [direct monitoring required during toileting and ADLs]:?Hands on ?? Surveillance [continuous indirect monitoring]: Masimo,??Purposeful??rounding ?? CARE PLAN GOAL OUTCOME EVALUATION:? Ongoing Gina Montaño MD - 02/11/2022 2:02 PM EDT Acute Care Surgery Daily Progress Note Admission Date: 01/23/2022 ID: Alix Holland is a 31 y.o. male with HTN, angioedema requiring intubation 04/21, GERD, gastritis, esophagitis, urachal cyst, and polysubstance use (EtOH, cocaine, heroin) who was admitted to the MICU 01/23/2022 s/p VT arrest in the setting of being found down following fentanyl overdose and developing L forearm and L thigh compartment syndrome (s/p L forearm, L buttock, and L thigh fasciotomies) w/ subsequent rhabdomyolysis, renal failure, and hyperkalemia which required CVVH. He was transitioned to iHD and transferred to floor status 02/02, however he had persistent daily transfusion requirement from ongoing wound vac bleeding and returned to the OR x2 (02/04 and 02/05) for irrigation and debridement of fasciotomy wounds, however no focal source of bleeding was identified. He was transferred to the SICU 02/05 after L thigh wound vac filled with alexsandra blood and hgb dropped to 4.6 despite 6U pRBC. He went to IR for embolization of SGA pseudoaneurysm and to the OR for hematoma washout on 02/06. He returned to the OR for washout and debridement again on 02/08 and 02/09. He was subsequently lateralized to the ACS service and transferred to floor status on 02/10. His hospital course has also been notable for asymptomatic COVID-10 infection, C. difficil infection, transaminitis most likely from ischemic hepatitis, and bilateral globus pallidus infarctions (? 2/2toxic metabolic insult). Procedures: 01/23: L thigh fasciotomy, L lower leg fasciotomy, L buttock fasciotomy, L forearm fasciotomy 01/26: Debridements and wound vac change 01/29: Debridement of fasciotomies, closure of L lower leg fasciotomy, closure of dorsal forearm fasciotomy, partial closure L thigh fasciotomy 01/31: Debridement and wound vac change 02/02: Debridement and wound vac change 02/04: Debridement and wound vac change 02/05: Debridement and wound vac change, 02/06: IR embolization of SGA pseudoaneurysm 02/06: LLE hematoma evacuation and washout 02/08: washout and debridement LLE, vac change LUE 02/09: washout and debridement LLE with vac placement 02/11: washout and vac change, LLE and LUE Subjective Interval Events: - Transferred to floor yesterday - iHD yesterday, 3L off Objective Vitals: Last Value Range last 24 hrs Temperature Temp: 36.7 ??C (98.1 ??F) Temp: [36.7 ??C (98.1 ??F)-37 ??C (98.6 ??F)] Heart Rate Heart Rate: (!) 102 Heart Rate: [101-118] Blood Pressure BP: (!) 143/92 BP: (115-145)/(66-97) Respiratory Rate Resp: 17 Resp: [13-20] SpO2 SpO2: 97 % SpO2: [91 %-100 %] O2 Device O2 Device: None (Room air) Intake/Output: 02/10 0701 - 02/11 0700 In: 4948 [P.O.:4850; I.V.:53] Out: 3450 Physical Exam: GEN: resting comfortably in bed, pleasant, conversant, NAD HEENT: normocephalic, atraumatic CHEST: comfortable work of breathing on RA CV: regular rate, well perfused ABD: soft, nontender, nondistended. EXTR: moving spontaneously, no edema; L thigh wound vac in place, holding suction; L forearm wound vac in place, holding suction SKIN: WWP NEURO: AOx3, sleepy and occasionally dozing off during conversation, follows commands Labs: Recent Labs 02/11/22 0037 02/10/22 0000 02/09/22 0055 02/08/22 1800 WBC 18.1* 16.1* 12.6* 12.1* HGB 7.0* 8.6* 7.1* 7.5* HCT 21.0* 25.2* 20.7* 21.6* PLATELET 140* 121* 97* 80* Recent Labs 02/11/22 0820 02/11/22 0037 02/10/22 1647 02/10/22 0905 02/10/22 0000 02/09/22 1735 02/09/22 1229 02/09/22 1008 02/09/22 0625 02/09/22 0055 NA 127* 128* 132* 129* 130* 132* 132* < > -- 130* 126* K -- 3.8 -- -- 3.9 4.3 -- -- -- 4.2 CL -- 96* -- -- 96* 100 -- -- -- 95* CO2 -- 26 -- -- 22 21* -- -- -- 22 BUN -- 23* -- -- 21* -- -- -- -- 26* CREATININE -- 2.42* -- -- 1.89* -- -- -- -- 2.46* GLUCOSE -- 125 -- -- 164 -- -- -- -- 128 CALCIUM -- 6.4* -- -- 7.2* -- -- -- -- 7.7* MAGNESIUM -- 0.75 -- -- 0.87 -- -- -- -- 0.94 PHOS -- 2.1* -- -- 3.1 3.2 -- 3.1 2.6 2.3* < > = values in this interval not displayed. C Diff Screen Date Value Ref Range Status 02/01/2022 Positive (A) Negative Final Comment: PCR Pos C. diff?? Positive (GDH positive, toxin antigen negative, toxin PCR positive) DNA from a toxigenic strain of C. difficile was detected, although the free toxin itself was not detected.?? These results cannot distinguish between colonization and infection. They must be interpreted within the patient???s overall clinical context. Consider other causes for diarrhea or the presence of a non-toxigenic strain. Patient needs to remain on Soap & Water Contact Precautions until discharge or approval by Infection Prevention. Abscess/Wound Aspirate Culture Date Value Ref Range Status 02/08/2022 (A) Final Many Pseudomonas aeruginosa Many Serratia marcescens Susceptibilities previously reported 02/08/2022 (A) Final Many Pseudomonas aeruginosa Many Serratia marcescens Anaerobic Culture Date Value Ref Range Status 02/09/2022 No anaerobic organisms isolated to date Final 02/08/2022 No anaerobic organisms isolated to date Final 02/08/2022 No anaerobic organisms isolated to date Final Tissue Culture Date Value Ref Range Status 02/09/2022 (A) Final Few Pseudomonas aeruginosa Few Serratia marcescens Susceptibilities previously reported Blood Culture Date Value Ref Range Status 02/06/2022 No growth at 4 days. Final 02/05/2022 No growth at 5 days. Final 02/01/2022 No growth at 5 days. Final Assessment and Plan Alix Holland is a 31 y.o. male with HTN, angioedema requiring intubation 04/21, GERD, gastritis, esophagitis, urachal cyst, and polysubstance use (EtOH, cocaine, heroin) who was admitted 01/23/2022 forcompartment syndrome and rhabdomyalysis after being found down. He is now s/p multiple fasciotomies and debridements of LLE and L forearm. Mr. Holland has had a prolonged, complicated hospital course which has been significant for renal replacement therapy secondary to rhabdomyolysis, ICU admissions, multiple debridements, and persistent transfusion requirement. He was transferred to the floor yesterday 02/10 and appears to be slowly progressing towards recovery. Plan for him to go to the OR today for washout and wound VAC change. Will likely require ongoing debridements and wound VAC changes in the OR. His wound cultures are growing Pseudomonas and Serratia for which he has been covered with by Zosyn.ID consulted today and recommend switching from Zosyn to cefepime. He also has C. difficile for which he is being treated with p.o. vancomycin which we will continue for 7 days following discontinuation of cefepime. Nephrology is following for rhabdomyolysis and renal failure. He will continue on iHD per nephrologyrecs. Plan for 1 unit of blood tomorrow with HD. He is also on a 1.5 L total fluid restriction, which includes both p.o. and IV fluids, due to inability to excrete free water and ongoing hyponatremia. From a nutrition standpoint he has not been reaching his nutrition goals. This is likely due to a multitude of reasons, namely frequently missing meals due to being n.p.o. for q2d debridement and woundVAC changes in the OR, increased requirements due to size of wounds, extra protein losses from dialysis, and limitations on supplemental nutrition modalities given total fluid restriction. We will start him on Ensure compact to augment nutrition goals. We will also attempt to place him on the OR schedule for morning cases only in order to avoid being n.p.o. all day, however this solution is limited depending on OR schedule acuity of cases. Given history of polysubstance abuse and complicated hospital course, APS was consulted to assist with pain management. Per their discussion patient does not want to be discharged with Suboxone or methadone, he wants to be completely opioid free when he goes home. Therefore we will simplify his pain regimen with scheduled Tylenol and Marinol, PRN oxy, and PRN IV Dilaudid only for breakthrough pain. Plan: Neuro: #Pain - Scheduled PO Tylenol - Marinol 15mg BID - d/c dPCA - PO Oxycodone PRN q3h - IV Dilaudid 0.6mg for breakthrough pain not controlled with oxy - APS re-consulted 02/11, appreciate recs #Polysubstance abuse, found down following fentanyl ingestion, Toxic metabolic encephalopathy, bilateral globus pallidum infarcts - Thiamine, folate - Q shift neurovascular checks - Neurology consulted 01/23, appreciate recs --- Repeat MRI brain: pending CV: - Persistent tachycardia, likely d/t increased metabolic demand from wounds and infections - no active interventions, CTM Resp: - Encourage IS, OOB - No active interventions, CTM GI: - Senna-docusate BID - Rectal tube in place FEN: F: fluid restriction per nephrology recs below E: CTM, supplement prn N: Regular diet - Nutrition team consulted, appreciate recs --- Not meeting nutrition goals. Needs > 100 g protein/day with iHD and wound vac losses & healing needs --- Add Ensure Compact --- Could consider PPN as a nutrition bridge but w/ current fluid restriction, nutrition provisions would be limited Renal/: - No active interventions, CTM - Nephrology consulted 01/23, appreciate recs --- iHD MWF --- Fluid restriction 1.5L/day (oral and IV) for mild hyponatremia in setting of HD dependence and unable to excrete water Heme: - No active interventions, CTM - DVT ppx per below - Transfuse for Hgb < 7 - Will receive 1U pRBC follow HD tomorrow (02/12) ID: - 02/08 and 02/09 wound cx: Pseudomonas, serratia - ID consulted 02/11, appreciate recs --- d/c Zosyn --- Start Cefepime (02/11 - - Cont PO Vanc BID for c diff (02/01- ) --- PO vanc to continue x7 days after Cefepime ends - s/p Unasyn (01/23-01/26 and 01/29-02/01), Cefazolin (01/26-01/29 and 02/01-02/07), Zosyn (02/08-02/11) - s/p asymptomatic Covid+ (now resolved, off precautions) Endo: - No active interventions, CTM MSK: - s/p multiple fasciotomies 01/23: L thigh fasciotomy (wound vac'd), L gluteal fasciotomy, L lower leg fasciotomy (closed 01/29), L volar forearm fasciotomy (wound vac'd), L dorsal forearm fasciotomy (closed 01/29) - s/p multiple OR debridements and wound vac changes. Plan for OR again today (02/11) - Plastics consulted 02/04, appreciate recs --- Not ready for definitive reconstruction at this time given active infection, will continue to follow - Wound care consulted for excoriations around penis and rectum, follow up recs Prophy: Resp: OOB, IS DVT: SQH TID, IPCs, OOB Lines/Drains/Tubes/Airways: - R IJ triple lumen HD catheter - Rectal tube Dispo: - Floor status - PT/OT consulted 01/27, appreciate recs Code Status: Attempt Cardiopulmonary Resuscitation - Inpatient Gina Montaño MD 02/11/2022 Acute Care Surgery Team pager [phone] Tamika Burk, RN - 02/11/2022 11:41 AM EDT Pt to PACU via bed from OR; monitors applied, alarms set and audible. Woke up well from Anesthesia; comfortable initially, then c/o LLE killing me. Pt given HAND STRIPER, which he used independently. Given additional IV analgesic also. 1200: Pt given oral analgesic. Lunch ordered for room. Pt using cell phone to call family and girlfriend. Kaylah Jang RD - 02/11/2022 11:30 AM EDT Nutrition Progress Note Alix Holland is a 31 y.o. male ??with history of polysubstance abuse currently admitted for fentanyl OD with LUE and LLE compartment syndrome s/p L forearm, L thigh/buttock and L lower leg fasciotomies, rhabdomyolysis, ARF and hyperkalemic VT arrest (on CVVH) with recurrent L thigh fasciotomy wound bleeding and hemorrhagic shock now 3 days s/p IR embolization of L circumflex iliac artery, Left internal iliac gluteal arterial branches, and left superior gluteal artery via R [employer] [employer] access. Interval hx: Pt continues NPO for OR today. Team hopeful to advance diet after OR. Reason for intervention: Follow up, Malnutrition evaluation and TPN Nutrition Recommendations: Continue regular diet Pt with high protein needs- will encourage double portion of protein rich items Will trial Ensure Compact; pt dislikes Nepro Monitor weights and trend. Recommend Nephro-scott daily and 500 mg Ascorbic acid daily. Patient has had minimal nutrition (NPO for OR frequently, for 20 days. Could consider PPN as a nutrition bridge but w/ current fluid restriction, nutrition provisions would be limited Patient now meets criteria for severe protein calorie malnutrition as outlined below. I was able to discuss plan with provider Kaylie Montaño MD #[id number]. Active Orders Diet Regular diet Frequency: Effective Now Number of Occurrences: Until Specified Lab Results Component Value Date NA 127 (L) 02/11/2022 K 3.8 02/11/2022 CL 96 (L) 02/11/2022 CO2 26 02/11/2022 BUN 23 (H) 02/11/2022 CREATININE 2.42 (H) 02/11/2022 ESTGFR 36 (L) 02/11/2022 MAGNESIUM 0.75 02/11/2022 CALCIUM 6.4 (CRIT) 02/11/2022 PHOS 2.1 (L) 02/11/2022 AST 21 02/05/2022 ALT <5 02/05/2022 ALKPHOS 74 02/05/2022 BILITOT 0.4 02/05/2022 BILIDIR 0.3 02/05/2022 TRIG 359 01/26/2022 CRP <3.0 04/26/2021 [id number] 535 02/03/2022 SFOLATE 3.9 (L) 02/03/2022 IRON 41 (L) 02/02/2022 No results found for: POCGLU Skin Status: Shift Pressure Injury Prevention Occiput: No Injury Thoracic Spine: No Injury Sacral: No Injury Ischial - left: No Injury Ischial - right: No Injury Heel - left: No Injury Heel - right: No Injury Elbow - left: No Injury Elbow - right: No Injury Device Sites: O2 sat monitor, IV sites Other Sites: wound vacs, IDB Relevant medications: folic acid, mrinol, bowel meds, thiamin, lactulose, D5@75mL/hr Last Bowel Movement: 02/11/22 Admit Weight: 101.8 kg Estimated body mass index is 31.18 kg/m?? as calculated from the following: Height as of this encounter: 182.9 cm (6' 0.01). Weight as of this encounter: 104.3 kg (229 lb 15 oz). [place] Body Weight: 80.9kg- [place] Usual Body Weight: See below 3.5% wt loss since admission (2 weeks)- clinically significant 2.7% x 1 week - clinically significant Wt Readings from Last 10 Encounters: 02/09/22 104.3 kg (229 lb 15 oz) 04/28/21 98.1 kg (216 lb 4.3 oz) 02/22/19 108.9 kg (240 lb) 05/03/18 113.4 kg (250 lb) 04/27/13 90.7 kg (200 lb) Assessment: Based on IBW 80.9kg Estimated needs: Calories: 1268-2765 (25-30kcal/kg) Protein: 200+ grams (2.5 g/kg) - pt on CRRT with wound Vacs Nutrition Focused Physical Exam (NFPE): Not performed- pt very sleep and unable to participate but appears to have wasting Nutrition intake and intake history/Interview: 02/11/22: Pt continue with increased nutrition needs w/ protein losses form iHD & wound vacs and increased needs for healing. Pt ate well at lunch today but has had MANY missed meals for procedures.Pt sleepy but reports he does get hungry. Girl friend at bedside who reports he looks like he has had significant muscle loss. Trial of Nepro unsuccessful. Electrolytes wnl, so please keep on regular diet ( vs renal) and will try Ensure Compact. Vitamin supplementation as above suggested. 02/09/22:Patient is now day 18 with minimal nutrition. Weight loss over the past week is clinically significant and patient now meets severe protein calorie malnutrition criteria. He continues on CRRT and wound vacs, requiring a minimum of 200g protein daily. Team hopeful to advance diet today after ORbut it is unlikely that patient will meet nutrition goals via PO intake alone for many days and future OR visits will continue to impede adequate nutrition intake. Recommend TPN as a bridge to meet nutrition needs. Protein-calorie Malnutrition: < or equal to 50% of estimated energy requirement for > or equalto 5 days and >2% weight loss in 1 week is consistent with severe protein-calorie malnutrition inthe setting of acute illness or injury (BUSTER Pickens J Parenteral Enteral Nutr. 2011; 36(3): 273-83) Nutrition to continue to follow up while inpatient KAYLAH JANG RD Pager #:[phone] Tanesha Patel RN - 02/11/2022 6:00 AM EDT OUTCOME EVALUATION NOTE: ?? OUTCOME SUMMARY: Pt AOx4. Had HAND STRIPER Dilaudid, IV Dilaudid and PO oxycodone for pain. Dressings had been CDI. Wound vac in situ. NPO at TN for surgery today. Awaiting MRI schedule. For HD possible today. ?? PLAN MOVING FORWARD: Pain management Monitor labs Water restriction of 1500mL ?? INDIVIDUALIZED FALL PREVENTION INTERVENTIONS: ?? Patient-specific fall risk factors per assessment: [current deficits]:?Hospital??environment,IV lines, generalized weakness ?? Assistance [level of assistance required for transfers and ambulation]:?? 2A,Lift ?? Supervision [direct monitoring required during toileting and ADLs]:?Hands on ?? Surveillance [continuous indirect monitoring]: Masimo,??Purposeful??rounding ?? CARE PLAN GOAL OUTCOME EVALUATION:? Ongoing Lea Jesus RN - 02/10/2022 10:09 PM EDT OUTCOME EVALUATION NOTE: OUTCOME SUMMARY: Pt A+Ox4, lethargic at times. Constant pain 7-10/10 despite PRN oxy and dilaudid cascara bark cutter, team aware. Q shift N/V checks, pulses dopplerable. Provider notified pt would need to disconnect from wound vacs for MRI, communication placed, ok to disconnect. NPO at midnight for washout of wounds. PLAN MOVING FORWARD: NPO at midnight for washout IHD MWF Q8 sodium levels HAND STRIPER for pain Free water restriction 1L Vidhya Peñaloza MD - 02/10/2022 1:47 PM EDT NEPHROLOGY PROGRESS NOTE PATIENT: lAix Holland : 1990 Interval History: Patient seen and examined at bedside. On HD when seen. Tolerated HD well. I/O last 3 completed shifts: In: 6279 [P.O.:2030; I.V.:3362; Blood:350; Other:30; IV Piggyback:507] Out: 11047 [Other:99561; Stool:1025; Blood:20] I/O this shift: In: 2473 [P.O.:2420; I.V.:53] Out: 3100 [Other:3100] Assessment and Plan: A 31 year old male with PMHx HTN, angioedema, GERD, gastritis, esophagitis, polysubstance abuse was initially admitted in the hospital on 01/23/2022 with hyperkalemic VT arrest, AKIand severe rhabdomyolysis. He has undergone left thigh, left forearm, left buttock and left lower leg fasciotomies. In the setting of shock, he developed MOSF and anuric renal failure. Patient was on CVVH since his admission. Patient is now being transitioned to iHD after an earlier attempt was made to do that on 02/02/2022. He tolerated today's HD well. - iHD MWF for now. Patient will be re-evaluated in the morning however for any additional run per his volume and electrolyte status. In case he is stable from both the parameters, the next iHD would beon Tuesday. - Anemia - likely sec to blood loss/iron deficiency sec to prolonged hospital admission. No EPO at this time given that patient does not have CKD. - Mild hyponatremia. Patient should be on fluid restriction of 1.5L/day. he can not excrete water through the urine. Hence is dialysis dependent. The 1.5 liter/ day accounts for both the oral and the IV intake in total. - Phosphorus, potassium,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 Thank you for this consult. If you have any questions regarding this consult, please page [phone] if you have any further questions. [X] Consult service to continue to follow [] Consult service to sign off Collette Dye MD, PGY2 Acute Care Surgery Team pager [phone] Bam Bahena - 02/09/2022 7:35 AM EDT ICU Progress Note Patient info: Name: Alix Holland : 1990 PCP: None Date of Admission: 01/23/2022 ( Hospital Day 17 days ) Responsible Attending:Parrish Betancourt MD ID: Alix Holland is a 31 y.o. male on HD16 with class I obesity,??HTN, angioedema requiring intubation (04/2021,??unclear trigger), GERD, gastritis/esophagitis, urachal cyst s/p I&D, and polysubstance use??(EtOH, cocaine, heroin) who was admitted to the SICU on 02/05/22 for hypotension 2/2 hemorrhagic shock in the setting of bleeding from a LLE fasciotomy. ?? He was admitted initially to the MICU 01/23??s/p VT arrest at [facility] in the setting of being down for 12 to 14 hours after fentanyl ingestion and developing a left forearm and left thighcompartment syndrome with subsequent rhabdomyolysis, renal failure and hyperkalemia. ??He had a prolonged MICU stay due to ongoing CVVH requirements, however has been successfully transitioned to intermittent IHD and transferred to the floor 02/02.?He went to the OR twice (02/04, 02/05) for irrigation and debridement of the fasciotomy wounds, with ongoing bleeding from the wound vacs, however no focal source of the bleeding was identified. He was upgraded to the SICU the evening of 02/05 after his left thigh wound vac filled with alexsandra blood and hemoglobin dropped to 4.6 despite 6U pRBC. His hospital course has also been notable for asymptomatic COVID-19 infection, transaminitis believed due to ischemic hepatitis, C. difficile infection, bilateral globus pallidus infarctions believed due to toxic metabolic insult.? 24 Hour Events/Subjective: OR with ACS/Ortho, - necrotic tissue in left thigh, plan to go back today off COVID precautions/still on for C diff, Started zosyn for GNRs in OR cultures 1u PRBC given overnight (Hgb>7) but in anticipation of trip to OR today; Objective: Vitals Last value Range last 24 hrs Temperature Temp: 36.9 ??C (98.4 ??F) Temp: [36.6 ??C (97.9 ??F)-37.9 ??C (100.2 ??F)] Heart Rate Heart Rate: (!) 103 Heart Rate: [100-138] Blood Pressure BP: 142/75 BP: -- Art Line BP BP (Arterial Line): 144/88 BP (Arterial Line): (107-177)/(66-103) MAP (NBP): -- Respiratory Rate Resp: 21 Resp: [13-29] SpO2 SpO2: 100 % SpO2: [96 %-100 %] Oxygen Delivery Oxygen Therapy O2 Device: None (Room air) O2 Flow Rate (L/min): 2 L/min FiO2 (%): 21 % Intake/Output Summary (Last 24 hours) at 02/09/2022 1212 Last data filed at 02/09/2022 1200 Gross per 24 hour Intake 4014 ml Output 6545.5 ml Net -2531.5 ml Patient Vitals for the past 168 hrs: Weight 02/08/22 0800 111.7 kg (246 lb 4.1 oz) 02/08/22 0521 115.5 kg (254 lb 10.1 oz) 02/07/22 0530 114.7 kg (252 lb 13.9 oz) 02/05/22 0400 116.8 kg (257 lb 8 oz) 02/04/22 0600 120.2 kg (264 lb 15.9 oz) Lines/Drains/Airways Central Line X2 Arterial line Rectal tube D5% infusion running at 75ml/hour Labs: CBC: Recent Labs 02/09/22 0055 02/08/22 1800 02/08/22 0100 WBC 12.6* 12.1* 18.6* HGB 7.1* 7.5* 7.3* HCT 20.7* 21.6* 20.7* PLATELET 97* 80* 97* NEUTROABS 7.26* 7.81* 12.53* Chemistry: Recent Labs 02/09/22 0625 02/09/22 0055 02/08/22 1800 02/08/22 1200 02/08/22 0557 02/07/22 1805 02/07/22 1300 NA 130* 126* 129* < > 126* < > 123* K -- 4.2 -- -- 4.9 -- 6.0* CL -- 95* -- -- 97* -- 94* CO2 -- 22 -- -- 22 -- 21* BUN -- 26* -- -- 29* -- 41* CREATININE -- 2.46* -- -- 2.94* -- 3.92* GLUCOSE -- 128 -- -- 92 -- 105 ANIONGAP -- 9 -- -- 7 -- 8 < > = values in this interval not displayed. Recent Labs 02/09/22 1008 02/09/22 0625 02/09/22 0055 02/08/22 0557 02/07/22 1300 CALCIUM -- -- 7.7* 8.5 7.4* MAGNESIUM -- -- 0.94 0.91 0.87 PHOS 3.1 2.6 2.3* 3.9 5.0* Coags: Recent Labs 02/08/22 0100 02/07/22 0210 02/06/22 2311 02/06/22 2220 02/06/22 1945 02/06/22 1633 PT 12.2 11.3 11.0 11.1 11.0 11.2 INR 1.1 1.0 1.0 1.0 1.0 1.0 PTT 25 -- -- -- -- 25 FIBRINOGEN 423* 362 362 351 321 300 ABG (Arterial Blood Gas) Lab Results Component Value Date pH Art 7.49 (H) 02/09/2022 pO2 Art 92 02/09/2022 pCO2 Art 30 (L) 02/09/2022 Microbiology: No growth on blood culture from 02/06 GNR on wound aspirate 02/09 Pertinent radiology/diagnostic studies: CXR: ??02/07/2022 No appreciable interval change. Unchanged position of the central venous catheters, as above. ASSESSMENT/PLAN: Alix Holland??is a 31 y.o.??man??with acute renal failure in the setting of rhabdomyolysis from compartment syndrome now status post fasciotomies, admitted to the SICU on 02/05 for hemorrhagic shock resuscitation in the setting of left lower extremity bleeding at the fasciotomy site. S/p embolization via R femoral access, DSA LCIA, L superficial femoral, L deep femoral, LIIA and DSA of superior division of L gluteal artery for pseudoaneurysm and hematoma evacuation, washout and dressing placement. He continues to require blood transfusions for Hgb<7 and is scheduled to undergo further LLE debridement with general surgery in the setting of ongoing bleeding form the fasciotomy and necrotic tissue. Coags are normal and is hemodynamically stable. His only current SICU need is CRRT for his acute renal failure. He remains on CRRT to allow for rapid diuresis given how volume overloaded he is. There is no concern from Nephro side about transition to IHD so can proceed to do that once his volume status is deemed satisfactory. Neuro:?? # Toxic metabolic encephalopathy, # bilateral globus pallidum infarcts, # hx polysubstance abuse with difficult to control pain - F/up MRI brain w/o contrast per Neurology - Pain control: ?? acetaminophen, D. HAND STRIPER ?? PRN Dilaudid for breakthrough pain ?? Add 10-20 mg Oxycodone Q4 PRN - Marinol 10mg PO BID - Thiamine and folate ?? CV:?? # Hemorrhagic shock resolving. - SBP goal: <160, MAP goal >??65 Pulm:?? - Protecting his airway, on RA, JAVON ?? FEN/GI:?? - ADAT after OR - NBOs - Lytes per CVVH protocol ?? :? # ALTHEA requiring CVVH -??Ayala to gravity - IHD after OR or tomorrow morning. Can use CRRT for further diuresis overnight Endo:?? -Adequate glycemic control, ISS ?? ID:? - cultures: lower respiratory culture tracheal aspirate 01/23 many Staph Aureus, treated for Staph Aureus PNA x7 days - antibiotics: ?? PO vancomycin for c. Diff ?? Zosyn until d/c for GNR wound aspirate in OR on 02/09 - Cefazolin d/c 02/07 Heme:??hemorrhagic shock in the setting of ongoing bleeding from LLE, coagulopathy likely related toPRBC-only resuscitation and consumptive coagulopathy - Continue to transfuse PRBC for Hgb <7 ?? PPx:?? - DVT: SCD's, hold chemoppx - GI: pepcid - HOB >30 - Peridex mouth care CODE STATUS: Attempt Cardiopulmonary Resuscitation - Inpatient Bam Bahena, 4 02/09/2022 Jorge Luis Reynoso MD - 02/09/2022 7:23 AM EDT Plastic Surgery Inpatient Progress Note (Team Pager #[phone]) Date of surgery: N/A CC/Procedure(s): N/A Surgeon: Dr. Hennessy Subjective: Patient taken back to the OR yesterday by general surgery for LLE washout, debridement and LUE wound VAC change. Please refer to their op note for interval events. Patient received 1 additional unit of pRBCs overnight. Objective: BP 142/75 (BP Location (NBP): Arterial, Patient Position: Lying) Pulse (!) 116 Temp 37.4 ??C (99.3 ??F) Resp 13 Ht 182.9 cm (6' 0.01) Wt 111.7 kg (246 lb 4.1 oz) SpO2 98% BMI 33.39 kg/m?? Intake/Output Summary (Last 24 hours) at 02/09/2022 0723 Last data filed at 02/09/2022 0600 Gross per 24 hour Intake 3754 ml Output 5567.5 ml Net -1813.5 ml General: Resting comfortably in no acute distress. Neuro: Awake, alert, responds to questions appropriately, AAOx3 CV: RRR on tele Pulm: Non-labored on room air LUE: wound VAC intact holding suction, LUE edematous, sensation decreased to light touch in r/m/u nerve distribution, limited ROM of wrist/finger flexion/extension LLE: TAMIE wrap c/d/i, gauze dressing with mild serogansuinous drainage strikethrough Labs: Recent Labs 02/09/22 0055 WBC 12.6* HGB 7.1* HCT 20.7* NA 126* K 4.2 CL 95* BUN 26* CREATININE 2.46* CO2 22 GLUCOSE 128 ANIONGAP 9 CALCIUM 7.7* Micro: 02/08/2022 Specimen Information: Thigh, Left; Deep Wound Left thigh #1 ?? Component Value Gram Stain ??Abnormal?? Many Neutrophils seen Moderate Gram Negative Rods seen Specimen Information: Thigh, Left; Deep Wound Left thigh #2 ?? Component Value Gram Stain ??Abnormal?? Many Neutrophils seen Many Gram Negative Rods seen Assessment: Alix Holland is a 31 y.o. male with history of compartment syndrome secondary to overdose, in addition to rhadomyolysis and kidney injury. PRS was consulted for help with LUE and LLE fasciotomy wound closure. LLE continues to be cultured with bacteria now growing GNRs. LUE progressing well. Not ready for definitive reconstruction at this time given active/ongoing infection. Plan: 1. Plastics will continue to follow-along, not appropriate for definitive reconstruction at this time 2. Dressings/Drains: per trauma/ACS 3. Pain control: per primary 4. Antibiotics: per trauma/ACS 5. Diet: per primary 6. Activity: per primary 7. DVT prophylaxis: per primary 8. Home medications: as ordered Jorge Luis Reynoso MD Plastic Surgery Inpatient Team Pager #[phone] Jesús Mcgowan PA - 02/09/2022 6:06 AM EDT INTERVENTIONAL RADIOLOGY Inpatient Progress Note Admitted 01/23/2022 Procedure(s): IR LLE Arterial Embolization Post-procedure day: #3 Time of patient encounter: 630am 24 Hour Events: The patient returned to the OR yesterday by General Surgery for debridement of left lower extremity and left arm VAC was changed. The patient has remained tachycardic without fever and otherwise stable BP and O2 saturation on RA. His H:H was 7.1 this am from 7.5 yesterday and he was transfused 1 unit of PRBC this am. He is now 2 days s/p IR gelfoam embolization of deep femoral artery branches, gelfoam and coil embolization of superficial LEFT circumflex iliac artery, gelfoam embolization of Left internal iliac gluteal arterial branches, and gelfoam and coil embolization of Left superior gluteal artery via R CUT OFF SA[place]ER [place]ING[place] MILL access. Last Value 24 Hour Range Temperature 37.5 ??C (99.5 ??F) Temp: [36.2 ??C (97.2 ??F)-37.9 ??C (100.2 ??F)] Heart Rate (!) 115 Heart Rate: [85-138] Blood Pressure 142/75 BP: -- Respiratory Rate 26 Resp: [12-29] SpO2 100 % SpO2: [96 %-100 %] Physical Exam GEN No distress, A&O CARDS Acyanotic, Right CUT OFF [place] MILL without hematoma/induration, right DP 2+ LUNGS Non-labored Labs: Recent Results (from the past 24 hour(s)) POCT Glucose Result Value Ref Range POC Glucose 98 65 - 199 mg/dL BLOOD GAS 2 ARTERIAL Result Value Ref Range pH Art 7.44 7.35 - 7.45 pCO2 Art 36 35 - 45 mmHg pO2 Art 108 (H) 85 - 104 mmHg HCO3 Art 23.8 20.0 - 26.0 mmol/L BE Art -0.3 -3.0 - 3.0 mmol/L Hgb Blood Gas 7.8 (L) 13.7 - 16.5 g/dL O2HB Art 95.7 94.0 - 97.0 % COHB Art 0.1 % METHB Art 1.3 <=1.5 % Na Whole Blood 122 (L) 135 - 145 mmol/L K Whole Blood 4.6 3.5 - 5.0 mmol/L ICa Whole Blood 1.27 1.15 - 1.33 mmol/L CL Whole Blood 98 98 - 107 mmol/L Gluc Whole Bld 92 65 - 199 mg/dL Lactate WB 0.9 0.5 - 2.2 mmol/L FIO2 Art 21 % PF Ratio Art 514 POCT Glucose Result Value Ref Range POC Glucose 96 65 - 199 mg/dL Calcium Ionized Whole Blood, HONORIO Result Value Ref Range pH Honorio 7.46 (H) 7.32 - 7.42 ICa Whole Blood 1.26 1.15 - 1.33 mmol/L Sodium Result Value Ref Range Sodium 127 (L) 135 - 145 mmol/L Blood Gas Arterial (NLH) Result Value Ref Range pH Art 7.47 (H) 7.35 - 7.45 pCO2 Art 32 (L) 35 - 45 mmHg pO2 Art 129 (H) 85 - 104 mmHg HCO3 Art 22.9 20.0 - 26.0 mmol/L BE Art -0.7 -3.0 - 3.0 mmol/L Hgb Blood Gas 8.1 (L) 13.7 - 16.5 g/dL O2HB Art 97.5 (H) 94.0 - 97.0 % COHB Art 0.9 % METHB Art 0.0 <=1.5 % Na Whole Blood 123 (L) 135 - 145 mmol/L K Whole Blood 4.7 3.5 - 5.0 mmol/L ICa Whole Blood 1.26 1.15 - 1.33 mmol/L CL Whole Blood 98 98 - 107 mmol/L Gluc Whole Bld 92 65 - 199 mg/dL Lactate WB 0.9 0.5 - 2.2 mmol/L POCT Glucose Result Value Ref Range POC Glucose 100 65 - 199 mg/dL POCT Glucose Result Value Ref Range POC Glucose 126 65 - 199 mg/dL Abscess/Wound Aspirate Culture Specimen: Thigh, Left; Deep Wound Left thigh #1 Result Value Ref Range Gram Stain (A) Many Neutrophils seen Moderate Gram Negative Rods seen Organism Gram Negative Rods (A) Abscess/Wound Aspirate Culture Specimen: Thigh, Left; Deep Wound Left thigh #2 Result Value Ref Range Gram Stain (A) Many Neutrophils seen Many Gram Negative Rods seen Organism Gram Negative Rods (A) POCT Glucose Result Value Ref Range POC Glucose 92 65 - 199 mg/dL Sodium Result Value Ref Range Sodium 129 (L) 135 - 145 mmol/L Blood Gas Arterial (NLH) Result Value Ref Range pH Art 7.46 (H) 7.35 - 7.45 pCO2 Art 32 (L) 35 - 45 mmHg pO2 Art 89 85 - 104 mmHg HCO3 Art 22.4 20.0 - 26.0 mmol/L BE Art -1.4 -3.0 - 3.0 mmol/L Hgb Blood Gas 8.0 (L) 13.7 - 16.5 g/dL O2HB Art 95.8 94.0 - 97.0 % COHB Art 0.8 % METHB Art 0.0 <=1.5 % Na Whole Blood 124 (L) 135 - 145 mmol/L K Whole Blood 4.7 3.5 - 5.0 mmol/L ICa Whole Blood 1.21 1.15 - 1.33 mmol/L CL Whole Blood 99 98 - 107 mmol/L Gluc Whole Bld 84 65 - 199 mg/dL Lactate WB 1.2 0.5 - 2.2 mmol/L Hemogram Result Value Ref Range WBC 12.1 (H) 4.0 - 9.5 x10(3)/mcL RBC 2.57 (L) 4.58 - 5.54 x10(6)/mcL Hemoglobin 7.5 (L) 13.7 - 16.5 g/dL Hematocrit 21.6 (L) 40.5 - 48.5 % MCV 84.0 82.9 - 93.1 fL MCH 29.2 27.5 - 32.1 pg MCHC 34.7 32.0 - 35.7 g/dL Platelets 80 (L) 145 - 357 x10(3)/mcL RDWSD 48.9 (H) 36.0 - 45.0 fL RDWCV 17.9 (H) 11.4 - 13.8 % MPV 10.1 7.6 - 12.9 fL nRBC % Auto 0.2 % nRBC Abs Auto 0.020 (H) 0.000 - 0.000 x10(3)/mcL Differential, Automated Result Value Ref Range Neutrophils % 64.6 % Neutr Abs (ANC) 7.81 (H) 1.70 - 6.10 x10(3)/mcL Lymphocytes % 7.2 % Lymphocytes Abs 0.9 0.9 - 3.2 x10(3)/mcL Monocytes % 14.2 % Monocyte Abs 1.7 (H) 0.3 - 0.9 x10(3)/mcL Eosinophils % 1.3 % Eosinophils Abs 0.2 0.0 - 0.4 x10(3)/mcL Basophils % 0.5 % Basophils Abs 0.1 0.0 - 0.1 x10(3)/mcL Immature Gran % 12.20 % Gemini Gran Abs 1.48 (H) 0.00 - 0.04 x10(3)/mcL Scan, Peripheral Blood Result Value Ref Range Plat Estimate Decreased RBC Morphology Abnormal Macrocytes 1-5 /HPF Microcytes 1-5 /HPF Polychromasia Present >5/HPF Ovalocytes 1-5 /HPF Angel Cells 1-5 /HPF Stippled RBCs Present >1/HPF Pappenheimer Bdy Present >1/HPF Dohle Bodies Present Giant Platelets Less than 1 /HPF Magnesium Result Value Ref Range Magnesium 0.94 0.69 - 1.07 mmol/L Phosphorus Result Value Ref Range Phosphorus 2.3 (L) 2.5 - 4.5 mg/dL Basic Metabolic Panel (non-fasting) Result Value Ref Range Glucose Lvl 128 65 - 199 mg/dL BUN 26 (H) 10 - 20 mg/dL Creatinine 2.46 (H) 0.80 - 1.50 mg/dL Sodium 126 (L) 135 - 145 mmol/L Potassium 4.2 3.5 - 5.0 mmol/L Chloride 95 (L) 98 - 107 mmol/L CO2 22 22 - 31 mmol/L Anion Gap 9 5 - 15 mmol/L Calcium 7.7 (L) 8.5 - 10.5 mg/dL Estimated GFR 35 (L) >=60 mL/min/1.73 m?? Hemogram Result Value Ref Range WBC 12.6 (H) 4.0 - 9.5 x10(3)/mcL RBC 2.46 (L) 4.58 - 5.54 x10(6)/mcL Hemoglobin 7.1 (L) 13.7 - 16.5 g/dL Hematocrit 20.7 (L) 40.5 - 48.5 % MCV 84.1 82.9 - 93.1 fL MCH 28.9 27.5 - 32.1 pg MCHC 34.3 32.0 - 35.7 g/dL Platelets 97 (L) 145 - 357 x10(3)/mcL RDWSD 49.4 (H) 36.0 - 45.0 fL RDWCV 17.8 (H) 11.4 - 13.8 % MPV 9.8 7.6 - 12.9 fL nRBC % Auto 0.2 % nRBC Abs Auto 0.020 (H) 0.000 - 0.000 x10(3)/mcL Differential, Automated Result Value Ref Range Neutrophils % 57.4 % Neutr Abs (ANC) 7.26 (H) 1.70 - 6.10 x10(3)/mcL Lymphocytes % 10.1 % Lymphocytes Abs 1.3 0.9 - 3.2 x10(3)/mcL Monocytes % 17.7 % Monocyte Abs 2.2 (H) 0.3 - 0.9 x10(3)/mcL Eosinophils % 1.3 % Eosinophils Abs 0.2 0.0 - 0.4 x10(3)/mcL Basophils % 0.4 % Basophils Abs 0.0 0.0 - 0.1 x10(3)/mcL Immature Gran % 13.10 % Gemini Gran Abs 1.65 (H) 0.00 - 0.04 x10(3)/mcL Scan, Peripheral Blood Result Value Ref Range Plat Estimate Decreased RBC Morphology Abnormal Polychromasia Present >5/HPF Ovalocytes 1-5 /HPF Angel Cells 1-5 /HPF Stippled RBCs Present >1/HPF Pappenheimer Bdy Present >1/HPF Dohle Bodies Present Giant Platelets Less than 1 /HPF BLOOD GAS 2 ARTERIAL Result Value Ref Range pH Art 7.49 (H) 7.35 - 7.45 pCO2 Art 30 (L) 35 - 45 mmHg pO2 Art 92 85 - 104 mmHg HCO3 Art 22.5 20.0 - 26.0 mmol/L BE Art -0.9 -3.0 - 3.0 mmol/L Hgb Blood Gas 8.1 (L) 13.7 - 16.5 g/dL O2HB Art 95.1 94.0 - 97.0 % COHB Art 0.3 % METHB Art 1.0 <=1.5 % Na Whole Blood 122 (L) 135 - 145 mmol/L K Whole Blood 3.9 3.5 - 5.0 mmol/L ICa Whole Blood 1.18 1.15 - 1.33 mmol/L CL Whole Blood 98 98 - 107 mmol/L Gluc Whole Bld 125 65 - 199 mg/dL Lactate WB 2.2 0.5 - 2.2 mmol/L Prepare RBC Result Value Ref Range Dispensed? Yes ABO/Rh Typing Result Value Ref Range ABORh Type A Pos Antibody screen Result Value Ref Range Ab Screen Interp Negative Expires at 2359 on: 02/12/2022 ABORH Recheck Status Result Value Ref Range ABORH Type Recheck Completed Type and Screen Validity Result Value Ref Range T&S only valid at [facility] [place] [facility] Assessment: 31 y.o. male with history of polysubstance abuse currently admitted for fentanyl OD withLUE and LLE compartment syndrome s/p L forearm, L thigh/buttock and L lower leg fasciotomies, rhabdomyolysis, ARF and hyperkalemic VT arrest (on CVVH) with recurrent L thigh fasciotomy wound bleeding and hemorrhagic shock now 3 days s/p IR embolization of L circumflex iliac artery, Left internal iliacgluteal arterial branches, and left superior gluteal artery via R CUT OFF [place] MILL access. Last transfusion of 1 unit PRBC today after RTOR yesterday for LLE debridement and LUE VAC change with notable persistent tachycardia not requiring pressors. Plan: 1) IR to signoff to primary team and will be available for any needs/concerns. Florina Sheldon RCP - 02/08/2022 5:45 PM EDT 02/08/22 1715 Oxygen Therapy O2 Device RA SpO2 98 % Resp 23 Pt on room air rolan well Pt has no treatments ordered at this time Amberly Hardy OT - 02/08/2022 3:22 PM EDT Occupational Therapy Note Document Type: contact Total Minutes, Occupational Therapy: 0 Reason: Patient currently in the OR for LLE I&D. He continues to have bed rest orders at this time. OT will follow up once activity orders have been updated and patient is medically appropriate. Pager: [phone] Amberly Hardy OT 02/08/2022 Occupational Therapy Rehabilitation Department Vidhya Peñaloza MD - 02/08/2022 2:11 PM EDT NEPHROLOGY PROGRESS NOTE PATIENT: Alix Holland : 1990 Interval History: Patient discussed during the rounds. On COVID-19 precautions. On CRRT. I/O last 3 completed shifts: In: 7135 [P.O.:1280; I.V.:4337.5; Blood:1140.6; IV Piggyback:376.9] Out: 5608 [Other:5608] I/O this shift: In: 743 [P.O.:100; I.V.:623; Other:10; IV Piggyback:10] Out: 1221 [Other:1221] Not making much urine. Assessment and Plan: A 31 year old male with V-tach arrest sec to hyperkalemia, rhabdomyolysis, LUE and LLE compartment syndrome s/p fasciotomies, hemorrhagic shock s/p MTP, COVID-19 infection, ALTHEA on CRRT, ischemic hepatitis, aspiration pneumonia seen and examined. - Patient continues to be on CRRT. An attempt was made to transition him to AVVH to iHD on 02/02/2022.However, he did not tolerate it well. He is on CRRT at this time. - His sodium is 126 mmol/L. - Decrease the D5W to 75 cc/hour at this time. - I had talked to patient's father earlier last week about his renal recovery following major insultto the body. We had discussed recovery vs need to transition to intermittent HD for short term if hedoes not improve. - Potassium, lactate, calcium reviewed. Patient was not examined physically today. PHYSICAL EXAM: Last value Temperature Temp: 36.9 ??C (98.4 ??F) Heart Rate Heart Rate: (!) 103 Blood Pressure BP: 142/75 Respiratory Rate Resp: 19 SpO2 SpO2: 100 % Current Facility-Administered Medications Medication Dose Route Frequency Provider Last Rate Last Admin ??? lactulose (Chronulac) (0.67 gram/mL) oral liquid 20 g 20 g Oral BID PRN Batsheva Hill MD ??? lactulose (Chronulac) (0.67 gram/mL) oral liquid 20 g 20 g Oral BID Rogers Solano APRN 20g at 02/08/22 1204 ??? polyethylene glycoL (Miralax) packet 17 g 17 g Oral BID Rogers Solano, LEVELER HELPER ??? heparin (porcine) (5,000 units/1 mL) subcutaneous injection 7,500 Units 7,500 Units [id number] [place] Rogers Solano, LEVELER HELPER ??? alteplase (Cathflo) injection 1-4 mg 1-4 mL INTRA-CATHETER Once in dialysis PRN Collette Rivas PA 2.4 mg at 02/07/22 0520 ??? heparin (porcine) (1,000 units/mL) injection 1,000-10,000 Units 1,000-10,000 Units [id number] PRN Angelina Reynoso MD ??? bicarbonate CRRT (NxSTAGE) 3 mEq/L K+, 3 mEq/L Ca++, 5,000 mL Solution 5 each 5 each CRRT Continuous Angelina Reynoso MD 3,000 mL/hr at 02/08/22 1344 5 each at 02/08/22 1344 ??? calcium gluconate 15 g in sodium chloride 0.9% 250 mL infusion 5 mL/hr Intravenous Continuous Angelina Reynoso MD Paused at 02/08/22 0856 ??? sodium phosphate (0.1 mMol/mL) in sodium chloride 0.9 % 150 mL infusion (CRRT) 0-100 mL/hr Intravenous Continuous Angelina Reynoso MD ??? HYDROmorphone (Dilaudid) (0.5 mg/0.5 mL) injection syringe 0.2 mg 0.2 mg Intravenous Q2H PRN Rogers Solano, KATERYNA ??? HYDROmorphone (Dilaudid) (1 mg/mL) in sodium chloride 0.9% 50 mL HAND STRIPER infusion Intravenous HAND STRIPER Only Rogers Solano, KATERYNA 1 mL/hr at 02/07/22 1534 50 mg at 02/07/22 1534 ??? heparin (porcine) (1,000 units/mL) injection 1,000-10,000 Units 1,000-10,000 Units IntercatheterOnce in dialysis PRN Dania Thomas MD ??? epoetin salina-epbx (Retacrit) injection 12,000 Units 12,000 Units Intravenous Once in dialysis PRN Dania Thomas MD ??? NORepinephrine (Levophed) (16 mcg/mL) in dextrose 5% 250 mL infusion 0-100 mcg/min Intravenous Continuous Collette Rivas PA Stopped at 02/06/22 1153 ??? dextrose 5% infusion 75 mL/hr Intravenous Continuous Rogers Solano APRN 75 mL/hr at 02/08/22 1058 75 mL/hr at 02/08/22 1058 ??? diphenhydrAMINE (Benadryl) (50 mg/mL) injection 25 mg 25 mg Intravenous Q30 Min PRN Danielle Ramirez MD ??? prochlorperazine (Compazine) (5 mg/mL) injection 5 mg 5 mg Intravenous Q30 Min PRN Danielle Ramirez MD ??? ondansetron (pf) (Zofran) (2 mg/mL) injection 4 mg 4 mg Intravenous Q30 Min PRN Danielle Ramirez MD ??? naloxone (Narcan) (0.4 mg/mL) injection 0.2 mg 0.2 mg Intravenous Q1 Min PRN Danielle Ramirez MD ??? HAND STRIPER hutton Intravenous Continuous PRN Danielle Ramirez MD ??? HYDROmorphone (mg) HAND STRIPER shift total and Settings verification Intravenous 2 Times Daily- HAND STRIPER Shift Total Danielle Ramirez MD ??? vancomycin (Vancocin) capsule 125 mg 125 mg Oral 4 Times Daily Danielle Ramirez MD 125 mg at02/08/22 1312 ??? dronabinoL (Marinol) capsule 10 mg 10 mg Oral BID Danielle Ramirez MD 10 mg at 02/08/22 0835 ??? senna-docusate (Pericolace) 8.6-50 mg per tablet 2 tablet 2 tablet Oral BID Danielle Ramirez MD 2 tablet at 02/08/22 0835 ??? folic acid (Folvite) tablet 1,000 mcg 1,000 mcg Oral Daily Danielle Ramirez MD 1,000 mcg at 02/08/22 0835 ??? thiamine (Vitamin B1) tablet 100 mg 100 mg Oral Daily Danielle Ramirez MD 100 mg at ??? acetaminophen (Tylenol) tablet 1,000 mg 1,000 mg Oral Q8H [place] Danielle Ramirez MD 1,000 mg at 02/08/22 1312 ??? pantoprazole (Protonix) injection 40 mg 40 mg Intravenous Daily Danielle Ramirez MD 40 mg at02/08/22 0834 ??? glucose (Glutose) 40% oral geL 15-30 g of glucose Buccal Q30 Min PRN Danielle Ramirez MD Or ??? dextrose 10% infusion 250 mL Intravenous Q30 Min PRN Danielle Ramirez MD Stopped at Or ??? glucagon (Glucagen) (1 mg/mL) injection solution 1 mg 1 mg Intramuscular Q30 Min PRN Danielle Ramirez MD Facility-Administered Medications Ordered in Other Encounters Medication Dose Route Frequency Provider Last Rate Last Admin ??? midazolam (pf) (Versed) (1 mg/mL) multi-dose injection Intravenous PRN Anthony Turner CRNA 1 mg at 02/06/22 1306 ??? ketamine (Ketalar) (10 mg/mL) IV bolus injection (Anesthesia) Intravenous PRN Anthony Turner PHYSICIAN'S ASSISTANT 10 mg at 02/06/22 1420 ??? lactated ringers infusion Intravenous Continuous PRN Anthony Turner CRNA New Bag at 02/06/22 1239 ??? PHENYLephrine (Rustam-Synephrine) (80 mcg/mL) in sodium chloride 0.9% 250 mL infusion Intravenous Continuous PRN Anthony Turner CRNA 15 mL/hr at 02/06/22 1433 20 mcg/min at 02/06/22 1433 ???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 a LLE fasciotomy. ?? He was admitted initially to the MICU 01/23 s/p VT arrest at [facility] in the setting ofbeing down for 12 to 14 hours after fentanyl ingestion and developing a left forearm and left thigh compartment syndrome with subsequent rhabdomyolysis, renal failure and hyperkalemia. He had a prolonged MICU stay due to ongoing CVVH requirements, however has been successfully transitioned to new intermittent IHD and transferred to the floor 02/02. His hospital course is also been notable for asymptomatic COVID-19 infection, transaminitis believed due to ischemic hepatitis, C. difficile infection, bila teral globus pallidus infarctions believed due to toxic metabolic insult. ?? On review of his records, it appears he had been receiving transfusions almost daily since transfer to the floor. He had been back and forth to the OR twice over the 2 days prior to ICU admission for additional wound debridement, with ongoing bleeding from the wound vacs but no identified source. The evening of the , when his vac filled with blood rapidly, he received 6 units of RBCs for a hgb 4.6. ?? Patient seen and examined on critical care rounds. Problem List: Hemorrhagic shock Rhabdomyolysis ARF requiring HD (CVVH) Acute blood loss anemia RUE and RLE thigh and gluteal compartment syndrome s/p fasciotomies Toxic metabolic encephalopathy Polysubstance abuse disorder 24 Hour Events: POD 1 s/p hematoma evac and wound washout, IR embolization. TXA infusion started yesterday prior to embolization. DDAVP given again overnight. CVVH filter went down overnight. TPA being used in an attempt to salvage the HD line. 4 units of RBCs given over past 24H. CVVH removed 2.7L of fluid. Physical Exam Last value Range last 24 hrs Temperature Temp: 37.2 ??C (99 ??F) Temp: [36.3 ??C (97.3 ??F)-37.5 ??C (99.5 ??F)] Heart Rate Heart Rate: (!) 123 Heart Rate: [101-129] Blood Pressure BP: 119/75 BP: (119)/(75) Respiratory Rate Resp: 17 Resp: [11-25] SpO2 SpO2: 95 % SpO2: [91 %-100 %] Gen: Ill-appearing, uncomfortable HEENT: Sclera non-icteric, PERRL CV: Sinus tachycardia RESP: CTAB, no wheezing ABD: Soft, normoactive bowel sounds EXT: WWP, palpable pulses bilaterally, left thigh wound dressing in place. Left forearm wound VAC isto suction without any blood Neuro: Awake, alert and interactive somewhat slow to respond but appropriate, GCS 15 (4/5/6) ?? Labs: Lab Results Component Value Date Sodium 126 (L) 02/07/2022 Potassium 5.8 (H) 02/07/2022 Chloride 94 (L) 02/07/2022 CO2 22 02/07/2022 BUN 38 (H) 02/07/2022 Creatinine 3.43 (H) 02/07/2022 Glucose Lvl 136 02/07/2022 CBC Recent Labs 02/07/22 0605 02/07/22 0210 02/06/22 2311 02/06/22 2220 02/06/22 1945 02/06/22 1620 02/06/22 1130 02/06/22 0616 02/06/22 0348 02/06/22 0050 02/05/22 1950 02/05/22 0930 02/05/22 0056 02/04/22 0421 02/03/22 1415 WBC 24.3* -- -- -- -- 24.4* -- -- 19.5* -- 23.1* -- 30.1* 31.9* 30.1* RBC 2.41* -- -- -- -- 2.87* -- -- 2.27* -- 1.62* -- 1.61* 2.40* 2.14* HGB 7.1* 7.2* 7.7* 7.6* 8.1* 8.5* 8.7* < > 6.9* < > 4.9* < > 5.2* 7.7* 6.8* HCT 19.7* 19.8* 20.8* 20.5* 22.1* 23.4* 24.7* < > 19.2* < > 13.7* -- 14.8* 21.4* 19.4* MCV 81.7* -- -- -- -- 81.5* -- -- 84.6 -- 84.6 -- 91.9 89.2 90.7 MCH 29.5 -- -- -- -- 29.6 -- -- 30.4 -- 30.2 -- 32.3* 32.1 31.8 MCHC 36.0* -- -- -- -- 36.3* -- -- 35.9* -- 35.8* -- 35.1 36.0* 35.1 MPV 9.8 -- -- -- -- 9.7 -- -- 9.4 -- 10.2 -- 10.3 9.8 10.0 < > = values in this interval not displayed. INR Recent Labs 02/07/22 0210 02/06/22 2311 02/06/22 2220 02/06/22 1945 02/06/22 1633 02/06/22 1130 02/06/22 0935 PT 11.3 11.0 11.1 11.0 11.2 11.6 11.4 PTT -- -- -- -- 25 -- -- INR 1.0 1.0 1.0 1.0 1.0 1.0 1.0 Assessment/Plan: Alix Holland is a 31 y.o. man with acute renal failure in the setting of rhabdomyolysis from compartment syndrome now status post fasciotomies, admitted to the SICU for hemorrhagic shock resuscitation in the setting of left lower extremity bleeding at the fasciotomy site. Ongoing bleeding noted after dressing change. IR consulted and performed embolization via R femoral access, DSA LCIA, L superficial femoral, L deep femoral, LIIA and DSA of superior division of L gluteal artery for pseudoaneurysm. He then went to the OR with me for hematoma evacuation, washout and dressing placement. ?? Neuro: Toxic metabolic encephalopathy, bilateral globus pallidum infarcts, hx polysubstance abuse with difficult to control pain - pain control: acetaminophen, D. HAND STRIPER - PRN Dilaudid for breakthrough pain - Marinol 10mg PO BID - Thiamine and folate ?? CV: Hemorrhagic shock improved with hemorrhage control and adequate resuscitation - SBP goal: <160, MAP goal > 65 - EKG - OR today vs Tuesday in combination with ortho ?? Pulm: Protecting his airway, on RA, JAVON ?? FEN/GI: - ADAT if no plans for OR today - NBOs - Lytes per CVVH protocol ?? : ALTHEA requiring CVVH - Place ayala, to gravity - Rewire HD line ?? Endo: Adequate glycemic control, ISS ?? ID: C. Diff, +Covid (but asymptomatic on admission and felt likely to represent recent prior admission); on empiric cefazolin for fasciotomies; treated for Staph Aureus PNA x7 days - cultures: lower respiratory culture tracheal aspirate 01/23 many Staph Aureus, other cultures NGTD - antibiotics: PO vancomycin, D/C Ancef ?? Heme: hemorrhagic shock in the setting of ongoing bleeding from LLE, coagulopathy likely related to PRBC-only resuscitation and consumptive coagulopathy - Continue to transfuse PRBC for Hgb <7 - DDAVP overnight ?? PPx: - DVT: SCD's, hold chemoppx - GI: pepcid - HOB >30 - Peridex mouth care ?? L/T/D: Patient Lines/Drains/Airways Status Active Tubes/Lines/Drains Name Placement date Placement time Site Days Percutaneous Central Line - Triple Lumen 01/23/22 0600 internal jugular vein, right 01/23/22 0600 -- 15 Percutaneous Central Line - Triple Lumen 01/23/22 1625 internal jugular vein, left 01/23/22 1625 --15 Arterial Line 02/06/22 0603 femoral artery, right 20 gauge 02/06/22 0603 -- 1 Disp: admit to ICU, Critical Care Red 1 IS PATIENT CRITICALLY ILL ? * Is there a high potential of sudden, clinically significant, or life threatening deterioration? YES * Is there a need for direct personal assessment and management to treat/prevent multiple vital organ failure/deterioration? YES PATIENT IS CRITICALLY ILL WITH THESE DIAGNOSES BEING MANAGED BY CCS TEAM: Hemorrhagic shock Liver insufficiency Toxic metabolic encephalopathy Hyponatremia Hyperkalemia Acute renal failure on CVVH This time reflected the following activities [x] Evaluation of patient: 5 min [x] Review test results or imaging studies: 5 min [x] Discussion of the patients care with other medical staff: 5 min [x] Documenting critical care services: 10 min [x] Discussion with family/surrogate medical decision makers: 5 min [x] Obtaining medical history [] Reviewing condition or prognosis [x] Treatment discussion [] Limitation of treatment 30 minutes spent in providing critical care services (including evaluation and patient management, review of diagnostic tests and laboratory values, and coordination of care). I was present in the intensive care area for all services provided. This is exclusive of procedural time. Jayme Armstrong MD 02/07/2022 Angelina Reynoso MD - 02/07/2022 9:01 AM EDT Images from the original note were not included. Nephrology Attending Procedure note: CRRT Alix Holland was seen and examined on CVVH. Data and chart reviewed. The case was discussed with the CCS team Remains critically ill with olig-anuric ALTHEA complicating found down following fentanyl overdose withrhabdomyolysis, compartment syndrome. Fasciotomies left upper and lower extremities and buttocks complicated by bleeding left thigh requiring multiple units packed red blood cells, FFP, DDAVP. Tolerating CVVH well without net hourly ultrafiltration CRRT access:Several episodes right IJ line clotting, currently growing tPA. Electrolytes Lab Results Component Value Date Sodium 126 (L) 02/07/2022 Potassium 5.8 (H) 02/07/2022 Chloride 94 (L) 02/07/2022 CO2 22 02/07/2022 Lab Results Component Value Date PHOS 5.0 (H) 02/07/2022 ABG (Arterial Blood Gas) Lab Results Component Value Date pH Art 7.50 (H) 02/07/2022 pO2 Art 76 (L) 02/07/2022 pCO2 Art 29 (L) 02/07/2022 Calcium, ionized calcium, and additional relevant data reviewed. ?? Hyponatremia: Initial serum sodium 116 126, 5% dextrose reduced to 100 cc/h ?? Hyperkalemia: Improving with CRRT, however time limited by access issues and scheduled OR today. Switch to 3K replacement fluid pending resolution of line access issues CRRT orders reviewed. No changes made at this time Evangelina Meza RN - 02/07/2022 2:33 AM EDT OUTCOME EVALUATION NOTE: OUTCOME SUMMARY: Pt arouses for conversation but quickly drifts back to sleep when done speaking. States pain is 10/10 through most of the night, dilaudid HAND STRIPER continues with PRN pushes for break through pain. Refused lidocaine patches. Changed LLE dressing Q4H over night, saturating through pads (team aware), burn pads applied around wound. hgb drifting down. DDAVP admin around 0200. Tachycardic to 120s overnight. CVVH was running well up til 0450 when venous line clotted off, blood lost. Cathflow in red and blue lumens (remove at 0720). 1 unit of blood admin. No pressor requirements ON. Intermittently unable to move LLE and feels as if his toes are ripping off, team aware of these concerns. Pulses dopplerable x4 extremities. Safety maintained. PLAN MOVING FORWARD: Q6 H+H, Na Q2 neurovasc checks Restart CRRT when lines working correctly CRRT labs OR Tuesday? Pain management CPG GOAL OUTCOME EVALUATION: Continue care plan as documented. Natalya Amador RN - 02/06/2022 1:49 PM EDT OUTCOME EVALUATION NOTE: OUTCOME SUMMARY: Team and Ortho team at bedside for dressing change, manage bleeding L thigh fasciotomy [id number], medicated with Hydromorphone 1 mg by Jeanette TORRES. It was noted at 0920 pt left thigh was saturated with blood, team in to evaluated Dr. Arnold at the bedside with Emeka Gleason took dressing down with visible bleeding, Pressure held to area even on transport to IR. Pt did receive 3U PRBC at 0900, and 1 unit of uncrossed matched PRBC's at 1103, 1 Unit hanging prior to IR. Pt's K+ increased to K+ 6.0, 10 units of regular insulin IVP and 250 ml, 10% Dextrose infused, 45 min. BS 167, K+ was drawn during the insulin, dextrose infusion, K+ 6.1. Ica+ on ABG 0.9, pt received 1gm of Calcium Chloride. Pt lethargic, states pain 10/10, on the left side at LUE,LLE, pt does nod off during a conversation. Pt returned from the OR, CRRT started at 1800, 5% dextrose at 200 ml, Calcium gluconate infusing 5ml/hr. Levophed off. PLAN MOVING FORWARD: Sodium monitor Q 6 hours Massive hemmorrhagic panel q 2 hours CRRT with 5% dextrose 200 ml CRRT labs Jayme Armstrong MD - 02/06/2022 11:27 AM EDT Surgical Critical Care Progress Note History of Present Illness: Alix Holland is a 31 y.o. man with a PMH of HTN, angioedema requiring intubation 04/21, GERD, gastritis, esophagitis, urachal cyst, and polysubstance use (EtOH, cocaine, heroin). He was admitted to the SICU on 02/05/22 for hypotension 2/2 hemorrhagic shock in the setting of ongoing bleeding from a LLE fasciotomy. ?? He was admitted initially to the MICU 01/23 s/p VT arrest at [facility] in the setting ofbeing down for 12 to 14 hours after fentanyl ingestion and developing a left forearm and left thigh compartment syndrome with subsequent rhabdomyolysis, renal failure and hyperkalemia. He had a prolonged MICU stay due to ongoing CVVH requirements, however has been successfully transitioned to new intermittent IHD and transferred to the floor 02/02. His hospital course is also been notable for asymptomatic COVID-19 infection, transaminitis believed due to ischemic hepatitis, C. difficile infection, bila teral globus pallidus infarctions believed due to toxic metabolic insult. ?? On review of his records, it appears he had been receiving transfusions almost daily since transfer to the floor. He had been back and forth to the OR twice over the 2 days prior to ICU admission for additional wound debridement, with ongoing bleeding from the wound vacs but no identified source. The evening of the , when his vac filled with blood rapidly, he received 6 units of RBCs for a hgb 4.6. ?? Patient seen and examined on critical care rounds. Problem List: Hemorrhagic shock Rhabdomyolysis ARF requiring HD (CVVH) Acute blood loss anemia RUE and RLE thigh and gluteal compartment syndrome s/p fasciotomies Toxic metabolic encephalopathy Polysubstance abuse disorder 24 Hour Events: Received additional 4 units RBCs, 5 units FFP, vitamin K and DDAVP. He was started on a levophed gtt(currently at 8 mcg/kg/min). Vac removed at 6:30am by SICU and ortho at which time combat gauze and evarrest were placed. He then bled through that dressing at which time this was taken down by me on rounds this morning. The bleeding appeared to be eminating from the superior portion of the wound. Packs were placed and pressure held in preparation for IR embolization. Physical Exam Last value Range last 24 hrs Temperature Temp: 37.2 ??C (99 ??F) Temp: [36.6 ??C (97.9 ??F)-37.8 ??C (100 ??F)] Heart Rate Heart Rate: (!) 118 Heart Rate: [101-137] Blood Pressure BP: 120/71 BP: (85-121)/(38-97) Respiratory Rate Resp: 15 Resp: [10-22] SpO2 SpO2: 100 % SpO2: [91 %-100 %] Gen: Ill-appearing, uncomfortable HEENT: Sclera non-icteric, PERRL CV: Sinus tachycardia RESP: CTAB, no wheezing ABD: Soft, normoactive bowel sounds EXT: WWP, palpable pulses bilaterally, left thigh wound dressing removed. Large burden of clot at the superior aspect of the wound with brighter red blood oozing up through the existing clot. The left thigh is soft and compressible, left forearm wound VAC is to suction without any blood Neuro: Awake, alert and interactive somewhat slow to respond but appropriate, GCS 14 () ?? Labs: CMP Recent Labs 02/06/22 0906 02/06/22 0900 02/06/22 0740 02/06/22 0619 02/06/22 0614 02/06/22 0348 02/06/22 0050 02/05/22 2239 02/05/22 2154 02/05/22 0056 02/04/22 1843 02/04/22 0421 02/03/22 0455 02/02/22 0229 02/01/22 1142 02/01/22 0102 01/31/22 0610 01/31/22 0043 NA -- 123* 123* -- -- -- 124* -- 123* 122* -- 120* 123* 127* < > 127* < > -- K -- 6.0* 5.4* -- -- -- 5.3* -- 5.7* 5.9* -- 5.7* 5.2* 5.2* < > 5.2* < > -- CL -- 91* 91* -- -- -- 89* -- 92* 90* -- 91* 93* 97* < > 97* < > -- BUN -- 44* 44* -- -- -- 42* -- 41* 49* -- 64* 53* 63* < > 50* -- -- CREATININE -- 4.64* 4.52* -- -- -- 4.29* -- 4.29* 4.98* -- 5.55* 4.40* 4.78* < > 3.91* -- -- CO2 -- 23 23 -- -- -- 24 -- 23 24 -- 19* 22 20* < > 21* < > -- GLUCOSE -- -- 138 -- -- -- 177 -- 161 125 -- 100 117 107 < > 125 -- -- ANIONGAP -- 9 9 -- -- -- 11 -- 8 8 -- 10 8 10 < > 9 < > -- CALCIUM -- -- 6.7* -- -- -- 6.5* -- 6.2* 6.4* -- 6.3* 6.3* 6.8* < > 7.6* -- -- MAGNESIUM -- 0.99 -- -- -- -- 0.88 -- -- 0.84 -- 0.88 0.84 0.95 -- 0.94 -- -- PHOS -- 7.1* -- -- -- -- 6.5* -- -- 7.1* -- 7.5* 6.4* 5.7* -- 4.9* -- -- PROT -- -- -- -- -- -- -- -- 3.2* -- -- -- -- -- -- -- -- -- ALBUMIN -- -- -- -- -- -- -- -- 1.4* -- -- 1.7* -- -- -- -- -- -- AST -- -- -- -- -- -- -- -- 21 -- -- -- -- -- -- -- -- -- ALT -- -- -- -- -- -- -- -- <5 -- -- -- -- -- -- -- -- -- ALKPHOS -- -- -- -- -- -- -- -- 74 -- -- -- -- -- -- -- -- -- BILITOT -- -- -- -- -- -- -- -- 0.4 -- -- -- -- -- -- -- -- -- BILIDIR -- -- -- -- -- -- -- -- 0.3 -- -- -- -- -- -- -- -- -- ESTGFR -- 16* 17* -- -- -- 18* -- 18* 15* -- 13* 18* 16* < > 20* -- -- LACTATEVEN 1.7 -- -- 1.3 1.3 1.8 -- 1.8 -- -- 1.5 -- -- -- -- -- -- 1.0 < > = values in this interval not displayed. CBC Recent Labs 02/06/22 0935 02/06/22 0616 02/06/22 0348 02/06/22 0050 02/05/22 1950 02/05/22 1720 02/05/22 0930 02/05/22 0056 02/04/22 0421 02/03/22 1415 02/03/22 0647 02/03/22 0455 02/02/22 1240 WBC -- -- 19.5* -- 23.1* -- -- 30.1* 31.9* 30.1* -- 30.8* 33.6* RBC -- -- 2.27* -- 1.62* -- -- 1.61* 2.40* 2.14* -- 1.72* 2.29* HGB 9.0* 7.5* 6.9* 4.8* 4.9* 7.1* 7.0* 5.2* 7.7* 6.8* < > 5.6* 7.4* HCT 25.9* 20.5* 19.2* 13.3* 13.7* -- -- 14.8* 21.4* 19.4* < > 15.9* 20.9* MCV -- -- 84.6 -- 84.6 -- -- 91.9 89.2 90.7 -- 92.4 91.3 MCH -- -- 30.4 -- 30.2 -- -- 32.3* 32.1 31.8 -- 32.6* 32.3* MCHC -- -- 35.9* -- 35.8* -- -- 35.1 36.0* 35.1 -- 35.2 35.4 MPV -- -- 9.4 -- 10.2 -- -- 10.3 9.8 10.0 -- 10.2 10.2 < > = values in this interval not displayed. INR Recent Labs 02/06/2235 02/06/22 0616 02/06/22 0050 02/05/22 2035 01/31/22 0805 01/30/222016 PT 11.4 11.6 14.6* 56.2* -- -- PTT -- -- -- -- 36 30 INR 1.0 1.0 1.3 4.9 -- -- Assessment/Plan: Alix Holland is a 31 y.o. man with acute renal failure in the setting of rhabdomyolysis from compartment syndrome now status post fasciotomies, admitted to the SICU for hemorrhagic shock resuscitation in the setting of left lower extremity bleeding at the fasciotomy site. Ongoing bleeding noted after dressing change. IR consulted and performed embolization via R femoral access, DSA LCIA, L superficial femoral, L deep femoral, LIIA and DSA of superior division of L gluteal artery for pseudoaneurysm. ?? Neuro: Toxic metabolic encephalopathy, bilateral globus pallidum infarcts, hx polysubstance abuse with difficult to control pain - pain control: acetaminophen, D. HAND STRIPER ?? CV: Hypotension in the setting of hypovolemia from hemorrhage, responsive to resuscitation - SBP goal: <160, MAP goal > 65 - EKG - Continue ongoing MTP - Start TXA infusion, renal dosing - OR for hematoma evacuation, hemostasis to follow IR embolization ?? Pulm: Protecting his airway, on RA, JAVON ?? GI: - NPO give meds - LFTs now, had transaminitis earlier, ? Ischemic hepatopathy as a nidus for coagulopathy ?? FEN/: ALTHEA requiring CVVH - Place ayala, to gravity - serial lytes per CVVH protocol ?? Endo: Adequate glycemic control, ISS ?? ID: C. Diff, +Covid (but asymptomatic on admission and felt likely to represent recent prior admission); on empiric cefazolin for fasciotomies; treated for Staph Aureus PNA x7 days - cultures: lower respiratory culture tracheal aspirate 01/23 many Staph Aureus, other cultures NGTD - antibiotics: Ancef, PO vancomycin ?? Heme: hemorrhagic shock in the setting of ongoing bleeding from LLE, coagulopathy likely related to PRBC-only resuscitation and consumptive coagulopathy - Continue to transfuse PRBC for Hbg <7/hypotension/active bleeding - FFP, Vitamin K ordered for INR 4.9 overnight, INR improved to 1.3 - DDAVP given for uremia, coagulopathy - CBC Q6H ?? PPx: - DVT: SCD's - GI: protonix, change to pepcid in light of C. Diff infection - HOB >30 - Peridex mouth care ?? L/T/D: Patient Lines/Drains/Airways Status Active Tubes/Lines/Drains Name Placement date Placement time Site Days Percutaneous Central Line - Triple Lumen 01/23/22 0600 internal jugular vein, right 01/23/22 0600 -- 14 Percutaneous Central Line - Triple Lumen 01/23/22 1625 internal jugular vein, left 01/23/22 1625 --14 Urethral Catheter 02/06/22 1600 latex 14 5 10 02/06/22 1600 -- less than 1 Arterial Line 02/06/22 0603 femoral artery, right 20 gauge 02/06/22 0603 -- less than 1 Disp: admit to ICU, Critical Care Red 1 IS PATIENT CRITICALLY ILL ? * Is there a high potential of sudden, clinically significant, or life threatening deterioration? YES * Is there a need for direct personal assessment and management to treat/prevent multiple vital organ failure/deterioration? YES PATIENT IS CRITICALLY ILL WITH THESE DIAGNOSES BEING MANAGED BY CCS TEAM: Hypotension requiring fluids and pressors Hemorrhagic shock Liver insufficiency Toxic metabolic encephalopathy Hyponatremia Hyperkalemia Acute renal failure on CVVH Active hemorrhage Coagulopathy requiring active treatment This time reflected the following activities [x] Evaluation of patient: 10 min [x] Review test results or imaging studies: 5 min [x] Discussion of the patients care with other medical staff: 5 min [x] Documenting critical care services: 10 min [x] Discussion with family/surrogate medical decision makers: 5 min [x] Obtaining medical history [] Reviewing condition or prognosis [x] Treatment discussion [] Limitation of treatment 35 minutes spent in providing critical care services (including evaluation and patient management, review of diagnostic tests and laboratory values, and coordination of care). I was present in the intensive care area for all services provided. This is exclusive of procedural time. Jayme Armstrong MD 02/06/2022 Jayme Armstrong MD - 02/06/2022 11:18 AM EDT Multiple members of the care team (IR, SICU, General surgery) have attempted to contact the patient's father (Alix) without success. Given the ongoing bleeding noted from the left thigh, we will proceed with an emergency two physician consent and will proceed with IR for potential amgioembolization. Misha making this decision in my capacity as a critical care blending supervisor. Jayme Armstrong MD Jeanette Escamilla, LEVELER HELPER - 02/06/2022 10:40 AM EDT ICU Transfer Note DOA: 01/23/2022 Diet: High Protein - High Calorie diet Code: Attempt Cardiopulmonary Resuscitation - Inpatient Room: IC15/IC15-A ID: Alix Holland ( ) is a 31 y.o. male PMH of HTN, angioedema requiring intubation [unclear trigger], GERD, gastritis, esophagitis, urachal cyst s/p I&D, and polysubstance use admitted to the MICU??01/23/22??following hyperkalemic VT arrest, ALTHEA, and rhabdomylosis s/p fasciotomies toleft forearm, left thigh/buttock, and left lower leg for compartment syndrome on 01/23/22 c/b recurrent bleeding to left thigh presenting to the SICU for resuscitation in the setting of hemorrhagic shock. Operative Procedures: 02/06/2022 INCISION & DRAINAGE ABSCESS OR HEMATOMA, THIGH, KNEE SUPERFICIAL (WRVU 6.78) 02/05/2022 Procedure(s): DEBRIDEMENT SKIN, SUBCU, MUSCLE, LOWER EXTREMITY (WRVU 2.7) MODIFIER WOUND VAC DRESSING CHANGE (VAC ASSISTED) UP TO 50SQ.CM (WRVU 0.55) DRESSING CHANGE (VAC ASSISTED) UP TO 50SQ.CM (WRVU 0.55) Hospital/ICU course has been significant for: ?? Rhabdomyolysis d/t LUE + LLE Compartment Syndrome with hyperkalemic cardiac arrest: Found by father 5pm 01/22 with unknown down-time, complaining of LUE pain. On-route to [facility] via EMS had a Vtach arrest. On arrival to OSH he was noted to have potassium of 7.8. He received multiple doses of sodium bicarb, calcium gluconate, and insulin/D10 and his potassium improved to 5.4 prior to transport. [place] [facility] [place] was again elevated at 7.6 with peaked T waves on EKG. He was also found to have cool and firm left forearm as well as left posterior thigh and buttock concerning for compartment syndrome. CK was elevated >220,000. Orthopaedics were urgently consulted and performed compartment pressuresand ultimately took the patient to the OR on 01/23. He underwent a 4-compartment fasciotomy of the LLE, as well as fasciotomies of the left anterior and posterior thigh, left buttock [gluteus maximum, medius and TFL] and left volar and dorsal forearm with prophylactic median nerve release. The wounds were left often with VAC dressings placed. He returned to the OR multiple times for washouts and debridements of non-viable areas of tissue. He remained on some form of antimicrobial therapy while his wounds were open. ?? Hemorrhagic shock requiring MTP: Pt with persistent oozing from fasciotomy sites with multiple ORtake backs for debridement significant for difuse oozing to left lateral thigh with no focal source/arterial bleed. MTP was initiate overnight 02/05 in the setting of profound bloody wound vac output andacute Hgb drop from 7 to 4.9. The orthopedic team applied combat gauze, and placed a pressure bandage to left thigh to work toward hemostasis and the patient was transferred to SICU. On 02/06 he went to IR leading to coiling of superior division gluteal artery pseudoaneurysm. His wound care was taken over by acute care surgery. ?? COVID-19 infection, Asymptomatic: Febrile on arrival to OSH; intubated in the setting of CPR. Found to be COVID-positive. After [place] [facility] [place] was able to be weaned to minimal oxygenation support and CT chest was clear apart from partial collapse of LLL and dependent atelectasis. COVID therapies such as decadron were held due to preserved oxygenation. He did remain intubated through 01/26, not because of hypoxia, but to facilitate return OR trips and during a time of hemodynamic instability. ?? ALTHEA requiring PRESS PULLER: Given his multisystem organ failure and significant rhabdomyolysis, he was placed on CRRT the night of admission. The filter was paused on 01/29 and he was given a lasix challenge. Unfortunately he had no response to the lasix, but was hemodynamically stable, so he was transitionedto shift therapy that night and ultimately iHD on 02/02. Unfortunately, on 02/05 he suffered hemorrhagicshock which resulted in hemodynamic instability leading to the inability to tolerate iHD so he was transitioned back to CRRT. ?? Transaminitis, likely ischemic hepatitis: Found to have elevated LFTs on arrival to OSH with hepatocellular pattern. Etiology of transaminitis was thought to be most likely due to ischemic hepatitisin the setting of cardiac arrest and CPR. Tox screen revealed +oxycodone, opiates, and barbiturates,but was negative for tylenol, salicylates, and EtOH. Viral hepatitides also returned negative. The patient's family did endorse routine alcohol use of approximately 6-beers/day, for which he received thiamine and folate and was monitored for signs of alcohol withdrawal. ?? Possible Acute CVAs: There was concern on his initial CT scan for possible acute areas of stroke [small] in the basal ganglia. He awoke from sedation and followed commands, and Neurology recommendeda non-urgent MRI Brain. The MRI was done and was read as acute strokes in the globi pallidi [basal ganglia], as well as scattered punctate infarcts in both cerebral hemispheres. Neurology were not convinced that these actually represented acute embolic events, and recommended a CTA Head/Neck at that point. A TTE had also already been done and was negative for valvular vegetations, with negative bloodcultures as well [concern for infectious cause of the MRI abnormalities]. The CTA Head and Neck weredone and were normal/unrevealing. He awoke from sedation and was extubated [01/26] with no focal deficits and a relatively normal neurologic exam [some somnolence but was still on medication for possible alcohol withdrawal]. ?? Aspiration Pneumonia/Pneumonitis, MSSA: On his initial imaging there was collapse / possible opacity in his LLL. Given his degree of illness, he was placed on Unasyn [01/23-01/27]. Sputum culture from01/23 showed MSSA, however the patient had rapid improvement in respiratory status and was weaned to minimal vent settings and room air 01/26. Unasyn was discontinued in favor of Ancef for ongoing wound prophylaxis. Because of an unexplained rising leukocytosis [no concern for wound infections], he was broadened back to Unasyn [01/29-02/01]. When he was found to have C Diff, he was transitioned back to cefazolin (02/01-02/07) ?? Pain Control, c/b Chronic Opiate Abuse: post-extubation the evening of 01/26 he developed shivering and sinus tachycardia without temperature and was endorsing a high level of ongoing pain. PO Oxycodone was added and he ended up on a Ketamine infusion and the Precedex infusion was resumed, with a consult to the acute pain service the next day. APS recommended scheduled and PRN Dilaudid, as well as adding dronabinol and weaning the Fentanyl drip off. His scheduled PO Dilaudid was stopped on 01/29 forsomnolence and his Ketamine was weaned off by 01/30. He was transitioned to a hydromorphone HAND STRIPER on 02/01. ?? C Difficile infection: Persistent leukocytosis was noted in the presence of liquid stool. C Diff was sent 02/01 and returned positive. He was placed on a 10- day course of PO vancomycin. He course was extended due to the need for antibiotics for his pseudomonas infection. ?? Pseudomonas/serratia wound aspirate: On 02/08 on take back to the OR pseudomonas was isolated fromhis wound bed and zosyn was started. ?? 24hr events: ON: F/u possible brain MRI - did not go bc would have to stop all wound vacs 02/09: OR again today, change to oral oxy 10 PRN q4, diet today post-op, CRRT to IHD tomorrow 0600, wound culture growing pseudomonas aeruginosa and serratia marcescens - do not need double coverage ON: 1800 hemoglobin 7.5 and then 7.1 @ midnight; repeated T&S and gave 1u PRBC given continued ooze and anticipated trip to OR today; 02/08: OR with ACS/Ortho, pull as much as tolerated on CRRT, off COVID precautions/still on for C diff, SQH started, NPO @ midnight for OR tomorrow. Started zosyn for GNRs in OR cultures ON: Hg 6.8 - received 1u pRBC now 7.3; Fibrinogen 423, INR 1.1, PLT 97 02/07: CLD, increased dPCA (then decreased later), TPA for HD line failed so re- wired, OR tomorrow with ACS, 1pRBC for hgb 6.6 ON: Liberalize Lab panel to Q6H; Mild ongoing oozing; DDAVP. Last Hgb 7.2 then filter went down, ordered 1 U pRBC. 02/06: 6U pRBCs, worsening bleeding of L thigh, started TXA gtt, sent to OR with IR, embolization ofleft superior division of his gluteal artery, went to OR - bleeding already stopped, plan for OR w/ ortho 02/08 ON: Hgb 4.9, INR 4.9, PT 56.2 prior to transfer; s/p 5U PRBC for the day + FFP + Vit K + DDAVP priorto transfer; 11p - arrived, buttock wound bleeding --> ortho redressed with pressure dressing;-> 0050: coagulopathy resolved, hgb 4.8 --> block release; 1g Ca Gluconate x 3; attempted rad art line; 0400: 100/45, started levo. Fem A line. Physical Exam: Gen: Awake, alert, sitting up in bed HEENT: Sclera non-icteric CV: RRR, no m/r/g RESP: CTAB, no wheezing ABD: Soft, normoactive bowel sounds EXT: WWP, palpable pulses bilaterally, LLE lateral thigh fasciotomy wound covered in dressing Neuro: Grossly intact Micro: - Lower resp culture: 01/23 many staph aureus - Blood Cultures: 02/01: NGTD - C Diff Screen Positive 02/01 - Covid swab 01/22: Positive - LLE wound culture 02/08: pseudomonas and serratia marcensens Antibiotic Hx: - Ancef (start 02/01) - Vancomycin (start 02/01 - -Zosyn 02/08- Imaging/Studies: IR Arteriogram Lower Extremity 02/06/2022 Consult Recs: 1. Plastic Surgery - OR 02/08 for closure of LUE and LLE wounds - Will likely use integra dermal substitute - Recommend continued use of wound vacs for both extremities - Rest of care per primary team Plan: Neuro: # Toxic metabolic encephalopathy, # bilateral globus pallidum infarcts, # hx polysubstance abuse with difficult to control pain - F/up MRI brain w/o contrast per Neurology - Pain control: ?? acetaminophen, D. HAND STRIPER ?? PRN Dilaudid for breakthrough pain ?? Add 10-20 mg Oxycodone Q4 PRN - Marinol 10mg PO BID - Thiamine and folate CV: # Hemorrhagic shock resolved - SBP goal: <160, MAP goal > 65 Pulm: - Protecting his airway, on RA, JAVON FEN/GI: - ADAT after OR - NBOs : # ALTHEA requiring CVVH, anuric - IHD -hyponatremia, q8 sodiums Endo: -JAVON ID: - antibiotics: ?? C Diff: PO vanc 125 QID -> 02/11 followed by BID for 7 days after completion of zosyn ?? psuedomonas and serratia from LLE wound: zosyn Heme: - Continue to transfuse PRBC for Hgb <7 PPx: - DVT: SCD's,SQH Jeanette Escamilla APRN 02/10/2022 Halle Holloway MD - 02/06/2022 7:35 AM EDT BRIEF ORTHO PROGRESS NOTE UPDATE: Saw the patient on morning rounds about 6 AM this morning. He had continued to saturate at the proximal aspect of his incision in the posterior gutter buttock. He has been on 2-4 of levo for pressor support with BP cuff and A-line not corresponding well to 1 another however most recent pressures are about 100/60. He is alert and oriented and conversant upon entry for exam. His INR has been corrected to 1.3. Most recent hemoglobin was 7.5 after an additional unit from 6.9 earlier this morning. Hemoglobin blood gases 8.2. After his INR has been corrected it seems he is actually holding onto product and responding appropriately to transfusion. Entire dressing and prior wound VAC sponges were removed from the wound. No identifiable large bleeding vessel was encountered there were a couple of superficial oozing venous bleeders about the subcuticular area of the proximal aspect of his gluteus. 1 square dressing of [place] was placed at this aspect. 3 square combat gauze dressings were packed into the wound in addition to a rolled combat gauzefor a total of 4 combat gauzes. Hemostatic compressive dressing was then applied over this includinggauze, ABDs, Tamie wrap and Medipore tape. At this time, there is no identifiable large bleeding source to go after for operative intervention.Anticipate and hopeful for improved hemostasis now that coagulopathy has corrected. Orthopaedics will continue to evaluate the patient. Appreciate critical care team support at this time. Halle Holloway MD Katie Hanricbrannon Gaines, DO - 02/06/2022 7:30 AM EDT Critical Care Staff Progress Note I saw Alix Holland on night time rounds. Interval events today: ?? Continued to ooze, more hypotensive requiring levophed to 4 ?? Received 5U FFP, 6U PRBC, DDAVP last night ?? Received Calcium 2gm On exam Awake, alert C/o pain with LLE manipulation LLE wound taken down by ortho, proximal aspect with clot and oozing Palpable pulses Puffy pitting edema BLE Breathing comfortably on RA I/O: Intake/Output Summary (Last 24 hours) at 02/06/2022 0734 Last data filed at 02/06/2022 0600 Gross per 24 hour Intake 6245.93 ml Output 1605 ml Net 4640.93 ml Labs: WBC 19.5, Hgb 7.5, PLT 185 Na 124, K+ 5.3, Cl 89, BUN 42, Creat 4.29, Ca 6.5 Assessment: 31 yom w/ new ALTHEA/CVVHD s/p rhabdo induced compartment syndrome, cardiac arrest admittedovernight to the SICU for ongoing bleeding from the LLE requiring large volume resuscitation. Wound taken down at bedside, oozing and hematoma at proximal aspect. No source identification, packed with combat gauze and pressure dressing re-applied. Plan: 1. 3U PRBC now 2. MHP Q6, VBG Q6 3. Staffed for CVVH tonight, will not tolerate IHD IS PATIENT CRITICALLY ILL ? Is there a high potential of sudden, clinically significant, or life threatening deterioration? Yes Is there a need for direct personal assessment and management to treat/prevent multiple vital organfailure/deterioration? Yes If this patient is not critically ill, the reason for continued hospitalization is . PATIENT IS CRITICALLY ILL WITH THESE DIAGNOSES BEING MANAGED BY [facility] TEAM: Coagulopathy Req Active Treatment Other consumtive Renal Disease/Failure Acute I personally performed 45 minutes of aggregate critical care time exclusive of procedures and teaching. This includes time spent during direct patient evaluation and reassessment, interpreting diagnostic tests, directing life and/or organ supporting interventions and documentation on the unit. Camille Cunha RN - 02/06/2022 6:21 AM EDT OUTCOME EVALUATION NOTE: OUTCOME SUMMARY: Pt arrived from MICU, RA, A+Ox4, VSS. Heavily saturated dressings to LLE, ortho paged to bedside fordressing change. 5 units of FFP given, 4 units PRBC. Mg+, Ca. Levo started for MAPs < 65, titrated to 4. Femoral arterial line inserted. Pt anuric overnight. As of 629, pt continuing to bleed, teamat bedside to evaluate. PLAN MOVING FORWARD: Cont to wean pressors as tolerated Return to OR Monitor labs Willie Alfaro RN - 02/06/2022 12:59 AM EDT OUTCOME EVALUATION NOTE: OUTCOME SUMMARY: Assumed care at 1900. Pt Tachycardic, softening BP (Systolic 85). Copious sanguinous draining filling bed with large clots present. CBC run, Hgb 4.9, INR 4.9. Ortho and medical team notified. 3 units PRBC given, FFP ordered. Pressures increasing with admin of PRBCs. Pt consulted by Critical Care and transferred to SICU. Ortho reinforced dressing, recommended vac be turned off. Continued saturation ofdressings before transfer. PLAN MOVING FORWARD: SICU OR If continuous failure to find hemostasis. INDIVIDUALIZED FALL PREVENTION INTERVENTIONS: Patient-specific fall risk factors per assessment: lines, drain, cords and generalized weakness Assistance: 2x assist Supervision: Alarms, active, audible, and set appropriately. Frequent visual assessments Surveillance: [place] Critical Care Monitor Patient-specific fall prevention interventions for sensory deficits provided, if applicable: Yes CPG GOAL OUTCOME EVALUATION: Halle Holloway MD - 02/05/2022 11:47 PM EDT INTERVAL BRIEF ORTHO PROGRESS NOTE Patient was evaluated around 11:40 PM in the ICU. Patient's blood pressure at the time evaluation was 140/90 however this was in the setting of receiving 3 units of packed red blood cells and was in the process of receiving FFP for an INR 4.9. Critical care nurses and team for bedside for assistance with dressing change as patient had saturated through some of the posterior buttock dressing. Wound VAC had remained off as had been instructed in prior documentation, see Dr. Danny Taylor note. Patient remained hemodynamically stable not requiring pressor support to this point. Redressed overlying the wound VAC with 4 x 4's, ABDs, gauze and TAMIE /medipore tape. Anticipate continued need for re-enforcement of dressing as patient is resuscitated and particularlywith INR 4.9 and a massive wound on his leg. Primary team is going to get a repeat Hgb and INR aftercompletion of transfusion of product. Halle Holloway MD Prem Taylor MD - 02/05/2022 9:46 PM EDT Brief orthopedic progress note: I saw Alix Holland, a 31-year-old male who was found down by his father after an overdose of fentanyl a week and a half ago and came in through the ED found to have rhabdomyolysis as well as compartment syndrome of the left thigh as well as left forearm which underwent fasciotomies and have undergone multiple returns to the OR for repeat debridement and VAC changes, the last of which was this morning. He has been on the medicine team boarding in the MICU, floor status secondary to his C. difficile and COVID precautions, however this morning his hemoglobin was in the low fives and he was transfused 2 units with appropriate response, dialyzed for 1.15 hrs this AM prior to going to the OR for left thigh wound VAC change. In the OR, he was found to have a small bleeder at the gluteus medius, however otherwise his debridement appeared relatively routine with some amounts of nonviable muscle debrided.Unfortunately, he has been tachycardic, hypotensive to the high 80s, and repeat hemoglobin draw at 8PM demonstrated a drop to 4.9 as well as an INR of 4.9. Left thigh vac output ~800 since OR, howeverhas been in the ~2L range the past few days. He has since been resuscitated with 2 units of PRBCs with 1 additional hanging as well as FFP on its way. After brief curbside discussion with the SICU team which is taking over his care, plan for continuedresuscitation and coagulopathy correction throughout tonight. Return to the OR emergently given his recent operative findings of minimal bleeding would likely be unfruitful and possibly promote further hemorrhage after disturbance of whatever clot he may have formed in the interim. It was agreed upon to continue to monitor, resuscitate, remain n.p.o., and reassess throughout the night and into the morning. In the interim, please hold heparin, NPO, wound VAC left thigh discontinued, Tamie wrap pressure bandage applied, appreciate SICU resuscitation efforts. Kenny Brandon MD - 02/05/2022 8:00 PM EDT ORTHOPAEDIC SURGERY INPATIENT PROGRESS NOTE Patient Name: Alix Holland Age: 31 y.o. Surgery/Issue: s/p I&D of LLE- L thigh debridement of necrotic gluteus medius , gluteus avery Attending: Dr. Valdovinos Date of surgery: 02/05/2022 SUBJECTIVE / INTERVAL HISTORY: Pain adequately controlled. When arrived at the bedside, ortho MD was present to control postoperative bleeding from LUE wound, failure of wound vac to hold suction. Copious bleeding from the site. 3 pRBCs given. Dressing reinforced. FOCUSED REVIEW OF SYSTEMS: as above. Active Hospital Problems Diagnosis ? ? LUE, LLE compartment syndrome s/p fasciotimies, I&D 01/23/22, 01/26/22 (Dr. Garcia), I&D w/ partial closure 01/29/22 (Dr. Valdovinos), I&D 01/31/22 (Dr. Branch) ??? Transaminitis ??? Aspiration pneumonia ??? Rhabdomyolysis ??? Asymptomatic COVID-19 virus infection ??? Lactic acidosis ??? ALTHEA (acute kidney injury) ??? Continuous renal replacement therapy (CRRT) for acute renal failure ??? Cardiac arrest Resolved Hospital Problems No resolved problems to display. Active Non-Hospital Problems Diagnosis ??? Angioedema ??? Chest pain ??? Smoker ??? Mandible fracture MEDICATIONS: ??? heparin (porcine) (1,000 units/mL) injection 1,000-10,000 Units ??? metoprolol tartrate (Lopressor) tablet 12.5 mg ??? albumin (human) 25% 50 mL intravenous solution ??? HYDROmorphone (Dilaudid) (1 mg/mL) in sodium chloride 0.9% 50 mL HAND STRIPER infusion ??? HYDROmorphone (Dilaudid) (1 mg/mL) injection syringe 1 mg ??? sevelamer carbonate (Renvela) tablet 1,600 mg ??? diphenhydrAMINE (Benadryl) (50 mg/mL) injection 25 mg ??? prochlorperazine (Compazine) (5 mg/mL) injection 5 mg ??? ondansetron (pf) (Zofran) (2 mg/mL) injection 4 mg ??? naloxone (Narcan) (0.4 mg/mL) injection 0.2 mg ??? HAND STRIPER hutton ??? HYDROmorphone (mg) HAND STRIPER shift total and Settings verification ??? vancomycin (Vancocin) capsule 125 mg ??? ceFAZolin (Ancef) 1 g vial attached to sodium chloride 0.9% 50 mL Mini-Bag Plus ??? dronabinoL (Marinol) capsule 10 mg ??? senna-docusate (Pericolace) 8.6-50 mg per tablet 2 tablet ??? folic acid (Folvite) tablet 1,000 mcg ??? thiamine (Vitamin B1) tablet 100 mg ??? acetaminophen (Tylenol) tablet 1,000 mg ??? lidocaine (Lidoderm) 5% patch 3 patch AND lidocaine (Lidoderm) topical patch REMOVAL ??? pantoprazole (Protonix) injection 40 mg ??? glucose (Glutose) 40% oral geL OR dextrose 10% infusion OR glucagon (Glucagen) (1 mg/mL)injection solution 1 mg ??? heparin (porcine) (5,000 units/1 mL) subcutaneous injection 5,000 Units ??? HYDROmorphone 0 mg/kg/hr (02/04/22 1655) OBJECTIVE: Temp: [36.6 ??C (97.9 ??F)-37 ??C (98.6 ??F)] Heart Rate: [105-126] Resp: [12-21] BP: (94-119)/(47-78) Intake/Output Summary (Last 24 hours) at 02/05/2022 1734 Last data filed at 02/05/2022 1538 Gross per 24 hour Intake 4673.33 ml Output 817 ml Net 3856.33 ml Body mass index is 34.92 kg/m??. PE: General: awake/alert, responds to questions. In pain as team works to control hemorrhage. CV: RRR assessed peripherally Resp: Breathing comfortably on RA. LLE: Wound vac not holding suction superiorly, with significant hemorrhage from that area of the wound. Dressing reinforced but suction not obtained. Wound vac d/naveed. TAMIE pressure wrap applied. Motor exam grossly normal. Unable to assess sensory exam. Lab Results Component Value Date NA 122 (L) 02/05/2022 K 5.9 (H) 02/05/2022 CL 90 (L) 02/05/2022 CO2 24 02/05/2022 BUN 49 (H) 02/05/2022 CREATININE 4.98 (H) 02/05/2022 GLUCOSE 125 02/05/2022 GLUCFASTING 151 (H) 04/26/2021 CALCIUM 6.4 (CRIT) 02/05/2022 Lab Results Component Value Date WBC 30.1 (CRIT) 02/05/2022 HGB 7.0 (L) 02/05/2022 HCT 14.8 (L) 02/05/2022 MCV 91.9 02/05/2022 PLATELET 363 (H) 02/05/2022 Lab Results Component Value Date INR 1.3 01/23/2022 ASSESSMENT / PLAN: Alix Holland is a 31 y.o. male Day of Surgery s/p I&D of LLE- L thigh debridement of necrotic gluteus medius , gluteus avery. Postoperative period complicated by LLE hemorrhage with Hgb 4.9, requiring transfusion. -Please hold heparin -Remain NPO -Wound VAC left thigh discontinued, Tamie wrap pressure bandage applied -Appreciate SICU resuscitation efforts -Will not return to OR tonight Kenny Brandon MD Dania Thomas MD - 02/05/2022 5:34 PM EDT NEPHROLOGY PROGRESS NOTE Reason for consult: ALTHEA/PRESS PULLER Baseline creatinine: ~0.7 (as of 04/2021) Interval History: Patient was observed in the ICU on HD. He was not examined due to resumption of COVID-19 precautions. Clinical and laboratory data reviewed. Did short run of HD today for hyperkalemia prior to going to the OR. Became somewhat hypotensive ~1'15 into treatment. Responded well to 250cc bolus. A/P: ALTHEA - Oligo-anuric again. Next HD tomorrow. Anemia - Transfused again for Hgb 5.2 Will give another dose of epo 12,000 units at dialysis. Metabolic labs - * Hypocalcemia - Corrected calcium at or slightly below goal. * Hyperphosphatemia - Suspect tissue necrosis is contributing. Would increase sevelamer to 1600mg with meals. * Hyponatremia - Unable to excrete free water, so this is due to intake. Would try to limit fluids to the extent possible. * Hyperkalemia - Likely also due to tissue necrosis. Dania Thomas MD Nephrology Pager: [phone] Summer Robertson RN - 02/05/2022 3:35 PM EDT Pt returned from OR Summer Robertson RN - 02/05/2022 2:17 PM EDT Pt to OR Lilibeth Medina, PT - 02/05/2022 1:57 PM EDT Physical Therapy Contact Note Attempted to visit patient for PT today however at time of attempt patient being taken away to OR for I&D. Delivered lauren multipodus DF boot for LLE per request of ortho, but unable to fit due to pt unavailable. RN or provider can put boot on (left with RN). PT to follow up early next week for ongoing therapy needs. Will continue to follow up as appropriate during hospital course. Please page with any questions or concerns. Lilibeth Medina, PT, DPT Pager: [phone] 02/05/22 Inpatient Rehabilitation Department Amberly Hardy OT - 02/05/2022 12:38 PM EDT Occupational Therapy Note Document Type: contact Total Minutes, Occupational Therapy: 0 Reason: Attempted to see patient this afternoon. Patient was in the process of leaving the floor to go to the OR for an I&D. Spoke with RN and PT dropped off LLE multi-podus boot, requested by MD. OT will plan to follow up with evaluation as able and when appropriate. Pager: [phone] Amberly Hardy OT 02/05/2022 Occupational Therapy Rehabilitation Department Charlotte Castañeda RD - 02/05/2022 11:15 AM EDT Nutrition NPO Note Alix Holland is a 31 y.o. male Patient is has had minimal nutrition (NPO for OR frequently, TF never advanced past trickle and intake of only 1 meal documented in chart) for 14 days, increasing risk for malnutrition. Please limit NPO time - suggest TPN as a bridge Communicated nutrition recs to Medicine pager #[phone] Visualized patient for overt cachectic appearance: no Active Orders Diet NPO diet (Give Meds) Frequency: Effective Midnight Number of Occurrences: Until Specified NPO diet (Give Meds) Frequency: Effective Now Number of Occurrences: Until Specified Admit Weight: 101.8 kg Estimated body mass index is 34.92 kg/m?? as calculated from the following: Height as of this encounter: 182.9 cm (6' 0.01). Weight as of this encounter: 116.8 kg (257 lb 8 oz). Wt Readings from Last 5 Encounters: 02/05/22 116.8 kg (257 lb 8 oz) 04/28/21 98.1 kg (216 lb 4.3 oz) 02/22/19 108.9 kg (240 lb) 05/03/18 113.4 kg (250 lb) 04/27/13 90.7 kg (200 lb) Weight loss: not able to assess d/t fluid status Charlotte Castañeda RD Pager: [phone] Dilcia Lopez MD - 02/05/2022 9:56 AM EDT Images from the original note were not included. Inpatient - Progress Note Admit Date: 01/23/2022 Hospital Day 13 days ID: Alix Holland is a 31 year male with a history of angioedema and polysusbtance use admitted for cardiac arrest, rhabdomyolysis, transaminitis, and ALTHEA in the setting of likely fentanyl overdose. Hospital course complicated by pneumonia and LUE and LLE compartment syndromes. Problem List: Active Hospital Problems Diagnosis ? ? LUE, LLE compartment syndrome s/p fasciotimies, I&D 01/23/22, 01/26/22 (Dr. Garcia), I&D w/ partial closure 01/29/22 (Dr. Valdovinos), I&D 01/31/22 (Dr. Branch) ??? Transaminitis ??? Aspiration pneumonia ??? Rhabdomyolysis ??? Asymptomatic COVID-19 virus infection ??? Lactic acidosis ??? ALTHEA (acute kidney injury) ??? Continuous renal replacement therapy (CRRT) for acute renal failure ??? Cardiac arrest Resolved Hospital Problems No resolved problems to display. Active Non-Hospital Problems Diagnosis ??? Angioedema ??? Chest pain ??? Smoker ??? Mandible fracture 24 Hour Events: Subjective: Received 3 units of blood due to ongoing oozing -- was oozing in OR< had to debride further muscle. Per ortho most of gluts has been debrided - these will not Re-grow Less muscle loss in forearm Restarted COVID precautions as mild cough (though also recently tx MSSA pneumonia and going to OR every other day for debridement) On RA, would not be a paxlovid candidate (given renal failure, also minimal symptoms) More alert Had short HD this am because of K 5.9 (likely in part due to tissue necrosis) Had urethral discharge -neg GC/chl Physical Exam: Last Set of Vitals and range of vitals over past 24 hours: Last value Range last 24 hrs Temperature Temp: 36.9 ??C (98.4 ??F) Temp: [36.5 ??C (97.7 ??F)-37 ??C (98.6 ??F)] Heart Rate Heart Rate: (!) 108 Heart Rate: [100-126] Blood Pressure BP: 119/66 BP: (94-129)/(47-72) Respiratory Rate Resp: 15 Resp: [12-21] SpO2 SpO2: 100 % SpO2: [99 %-100 %] Physical Exam GENERAL: somnolent, intermittently falling asleep during interview, NAD HEENT: PERRLA CARDS: regular rate and rhythm PULM: no assessed due to decreased mobility ABDOMEN: nontender, no rebound or guarding EXTREMITIES: edematous upper and lower extremities, left more than right, wound vac in place on lefthand, unable to move his left foot, no sensation in left foot or left hand Laboratory (Last 24 Hours): Recent Results (from the past 24 hour(s)) [place]mp [place] [place] Urine Specimen: Urine Result Value Ref Range GC Gene Amp Negative Negative GC Source Urine Chlamydia Gene Amp [place] [place] Urine Specimen: Urine Result Value Ref Range Chlamydia Gene Amp Negative Negative Chlamydia Source Urine BLOOD GAS 2 VENOUS Result Value Ref Range pH Honorio 7.34 7.32 - 7.42 pCO2 Honorio 43 41 - 51 mmHg pO2 Honorio 34 25 - 40 mmHg HCO3 Honorio 22.6 mmol/L BE Honorio -3.2 mmol/L Hgb Blood Gas 7.4 (L) 13.7 - 16.5 g/dL O2HB Honorio 58.9 % COHB Honorio 1.8 % METHB Honorio 0.3 <=1.5 % Na Whole Blood 118 (CRIT) 135 - 145 mmol/L K Whole Blood 5.2 (H) 3.5 - 5.0 mmol/L ICa Whole Blood 0.99 (L) 1.15 - 1.33 mmol/L CL Whole Blood 92 (L) 98 - 107 mmol/L Gluc Whole Bld 100 65 - 199 mg/dL Lactate WB 1.5 0.5 - 2.2 mmol/L BGas Source Venous Magnesium Result Value Ref Range Magnesium 0.84 0.69 - 1.07 mmol/L Phosphorus Result Value Ref Range Phosphorus 7.1 (H) 2.5 - 4.5 mg/dL Basic Metabolic Panel (non-fasting) Result Value Ref Range Glucose Lvl 125 65 - 199 mg/dL BUN 49 (H) 10 - 20 mg/dL Creatinine 4.98 (H) 0.80 - 1.50 mg/dL Sodium 122 (L) 135 - 145 mmol/L Potassium 5.9 (H) 3.5 - 5.0 mmol/L Chloride 90 (L) 98 - 107 mmol/L CO2 24 22 - 31 mmol/L Anion Gap 8 5 - 15 mmol/L Calcium 6.4 (CRIT) 8.5 - 10.5 mg/dL Estimated GFR 15 (L) >=60 mL/min/1.73 m?? Hemogram Result Value Ref Range WBC 30.1 (CRIT) 4.0 - 9.5 x10(3)/mcL RBC 1.61 (L) 4.58 - 5.54 x10(6)/mcL Hemoglobin 5.2 (CRIT) 13.7 - 16.5 g/dL Hematocrit 14.8 (L) 40.5 - 48.5 % MCV 91.9 82.9 - 93.1 fL MCH 32.3 (H) 27.5 - 32.1 pg MCHC 35.1 32.0 - 35.7 g/dL Platelets 363 (H) 145 - 357 x10(3)/mcL RDWSD 47.0 (H) 36.0 - 45.0 fL RDWCV 14.8 (H) 11.4 - 13.8 % MPV 10.3 7.6 - 12.9 fL nRBC % Auto 0.1 % nRBC Abs Auto 0.020 (H) 0.000 - 0.000 x10(3)/mcL Differential, Automated Result Value Ref Range Neutrophils % 71.9 % Neutr Abs (ANC) 21.60 (H) 1.70 - 6.10 x10(3)/mcL Lymphocytes % 8.3 % Lymphocytes Abs 2.5 0.9 - 3.2 x10(3)/mcL Monocytes % 8.8 % Monocyte Abs 2.6 (H) 0.3 - 0.9 x10(3)/mcL Eosinophils % 0.4 % Eosinophils Abs 0.1 0.0 - 0.4 x10(3)/mcL Basophils % 0.3 % Basophils Abs 0.1 0.0 - 0.1 x10(3)/mcL Immature Gran % 10.30 % Gemini Gran Abs 3.11 (H) 0.00 - 0.04 x10(3)/mcL ABO/Rh Typing Result Value Ref Range ABORh Type A Pos Antibody screen Result Value Ref Range Ab Screen Interp Negative Expires at 2359 on: 02/08/2022 ABORH Recheck Status Result Value Ref Range ABORH Type Recheck Completed Type and Screen Validity Result Value Ref Range T&S only valid at [facility] [place] Prepare RBC Result Value Ref Range Dispensed? Yes Hemoglobin Result Value Ref Range Hemoglobin 7.0 (L) 13.7 - 16.5 g/dL Microbiology: Microbiology Results (Last 30 days) Procedure Component Value Units Date/Time GC Gene Amp [place] [place]) Urine [[id number]] Collected: 02/04/221619 Lab Status: Final result Specimen: Urine Updated: 02/05/22641 GC Gene Amp Negative Comment: The only FDA approved specimen types for this assay are cervical, vaginal, urethral and urine. Non-FDA approved sources are eye, throat and rectal and have been internally validated. GC Source Urine Chlamydia Gene Amp [place] [place]) Urine [[id number]] Collected: 02/04/221619 Lab Status: Final result Specimen: Urine Updated: 02/05/22641 Chlamydia Gene Amp Negative Comment: The only FDA approved specimen types for this assay are cervical, vaginal, urethral and urine. Non-FDA approved sources are eye, throat and rectal and have been internally validated. Chlamydia Source Urine C. Difficile Screen [[id number]] (Abnormal) Collected: 02/01/22 1355 Lab Status: Final result Specimen: Stool Updated: 02/01/22 1618 C Diff Screen Positive Comment: PCR Pos C. diff?? Positive (GDH positive, toxin antigen negative, toxin PCR positive) DNA from a toxigenic strain of C. difficile was detected, although the free toxin itself was not detected.?? These results cannot distinguish between colonization and infection. They must be interpreted within the patient???s overall clinical context. Consider other causes for diarrhea or the presence of a non-toxigenic strain. Patient needs to remain on Soap & Water Contact Precautions until discharge or approval by Infection Prevention. Blood culture [[id number]] Collected: 02/01/22 0635 Lab Status: Preliminary result Specimen: Blood Updated: 02/04/22 1502 Blood Culture No growth at 3 days. Blood culture [[id number]] Collected: 02/01/22 0625 Lab Status: Preliminary result Specimen: Blood Pediatric Updated: 02/04/22 1502 Blood Culture No growth at 3 days. Blood culture [[id number]] Collected: 01/28/22 0345 Lab Status: Final result Specimen: Blood Updated: 02/02/22 0701 Blood Culture No growth at 5 days. MRSA PCR [[id number]] Collected: 01/24/22 1310 Lab Status: Final result Specimen: Nasopharyngeal Swab Updated: 01/25/22 2224 MRSA Result Negative MRSA Interp -- Negative for methicillin-resistant Staphylococcus aureus (MRSA) This test was performed using the Gene[employer]?? Dx System and the Xpert MRSA Assay. The MRSA target DNA was not detected. The sample processing control and probe check were valid. The performance of this test was determined by the [facility] [place]. It has been cleared by the U.S. Food and Drug Administration for clinical use. Comment: [VERIFIED DATE]01.25.22 Verified By:Alfonso Soto (Electronic Signature) MRSA PCR [[id number]] Collected: 01/23/22 1247 Lab Status: Final result Specimen: Nasopharyngeal Swab Updated: 01/25/22 1023 MRSA Result Negative MRSA Interp -- Negative for methicillin-resistant Staphylococcus aureus (MRSA) This test was performed using the [employer]?? Dx System and the Xpert MRSA Assay. The MRSA target DNA was not detected. The sample processing control and probe check were valid. The performance of this test was determined by the [facility] [place]. It has been cleared by the U.S. Food and Drug Administration for clinical use. Comment: [VERIFIED DATE]01.25.22 Verified By:Nora Shay (Electronic Signature) Lower Respiratory Culture Tracheal Aspirate [[id number]] (Abnormal) (Susceptibility) Collected: 01/23/22 1150 Lab Status: Final result Specimen: Tracheal Aspirate Updated: 01/25/22 1001 Lower Respiratory Culture -- Many Staphylococcus aureus Few mixed bacterial morphotypes suggestive of normal upper respiratory yessy Gram Stain -- Many Neutrophils No squamous epithelial cells Moderate Gram Positive Cocci Susceptibility Staphylococcus aureus VITEK 2 METHOD Clindamycin Sensitive Erythromycin Sensitive Gentamicin Sensitive [1] Oxacillin Sensitive [2] Tetracycline Sensitive Trimethoprim/Sulfa Sensitive Vancomycin Sensitive [1] Gentamicin is not appropriate for [place]-therapy. [2] Oxacillin (methicillin) susceptibility is a surrogate for the oral and parenteral cephalosporins, beta-lactam combination agents (amoxicillin-clavulanate, ampicillin-sulbactam and piperacillin-tazobactam) and carbapenem agents. It is NOT a surrogate for penicillin, ampicillin or piperacillin susceptibility. Linear View Blood culture [[id number]] Collected: 01/23/22 0600 Lab Status: Final result Specimen: Blood Updated: 01/28/22 0701 Blood Culture No growth at 5 days. Blood culture [[id number]] Collected: 01/23/22 0126 Lab Status: Final result Specimen: Blood Updated: 01/28/22 0701 Blood Culture No growth at 5 days. COVID-19 PCR [[id number]] (Abnormal) Collected: 01/23/22 0044 Lab Status: Final result Specimen: Tracheal Aspirate Updated: 01/23/22 1215 SARS-CoV-2 RNA Detected Comment: This result should be interpreted in combination with the clinical observations, patient history and epidemiological information in making a final diagnosis. For testing of asymptomatic individuals, assay performance characteristics and clinical utility have not been evaluated. Testing for SARS-CoV-2 (Severe acute respiratory syndrome coronavirus 2, formerly known as 2019 novel coronavirus or 2019-nCoV) to aid in the diagnosis of COVID-19 is performed using the [employer] SARS-CoV-2 Assay as authorized by the FDA Emergency Use Authorization (EUA). This EUA assay is intended for In-vitro Diagnostic (IVD) use with respiratory specimens such as nasopharyngeal swabs collected from individuals during the acute phase of infection. This assay is performed based on the instructions for use provided by [employer] and additional guidance provided by CDC and FDA. Testing is performed in the Clinical [employer] within the Department of Pathology and Laboratory Medicine at [facility], certified under the Clinical Laboratory Improvement Amendments of 1988 (CLIA), 42 U.S.C. 263a, to perform high complexity tests. Assay performance has been verified according to clinical laboratory regulatory requirements for use with specimens collected from individuals suspected of COVID-19. Test results are provided above. A result of Not Detected indicates that the viral RNA target is not present above the limit of detection, but does not preclude SARS-CoV-2 infection. False negative results may occur if a specimen is improperly collected, transported or handled; if amplification inhibitors are present; or if inadequate numbers of viral particles are present in the specimen. When a diagnostic test is negative, the possibility of a false negative result should be considered in the context of a patient's recent exposures and the presence of clinical signs and symptoms consistent with COVID-19. A result of Detected indicates that RNA from SARS-CoV-2 was detected and the patient is infected. As required or requested by public health authorities, positive specimens may be sent for additional testing. Positive and negative predictive values for this test are highly dependent on disease prevalence. A result of Invalid indicates that neither the viral RNA targets nor the internal control target was detected. An invalid result suggests the presence of inhibitors. Recollection and re-testing is recommended in the case of an invalid result. CDC COVID-19 criteria for testing on human specimens and clinical management guidance information are available at the CDC Coronavirus Disease 2019 (COVID-19) webpage under Information for Healthcare Professionals (https://www.cdc.gov/coronavirus/2019-ncov/hcp/index.html) Additional information about this and other EUA tests can be found in provider and patient fact sheets at the following FDA website: https://www.fda.gov/medical-devices/jsgcjpzhbip-cxzlrrg-6216-kkhga-23-fvtgoeysd- pcq-stprswqhytlmiv-dcmqpzd-devices/twzmz-kybqahlzbgm-loxm SARS-Cov-2 RNA Source Trach Asp MRSA PCR [[id number]] Collected: 01/23/22 0044 Lab Status: Final result Specimen: Nasopharyngeal Swab Updated: 01/25/22 1024 MRSA Result Negative MRSA Interp -- Negative for methicillin-resistant Staphylococcus aureus (MRSA) This test was performed using the Gene[employer]pert?? Dx System and the Xpert MRSA Assay. The MRSA target DNA was not detected. The sample processing control and probe check were valid. The performance of this test was determined by the [facility] [place]. It has been cleared by the U.S. Food and Drug Administration for clinical use. Comment: [VERIFIED DATE]01.25.22 Verified By:Nora Shay (Electronic Signature) Radiology: Results for orders placed or performed during the hospital encounter of 01/23/22 XR Chest One View (Exam End: 01/23/2022 2:10 AM) Impression ET tube with its tip in appropriate position. Thank you for letting us participate in the care of this patient. If you are a health care provider and have any questions regarding this report, please contact the number below. For patients who have questions please contact the health nursing care attendant that requested your imaging first. Head wo Contrast (Generic) (Exam End: 01/23/2022 3:58 AM) Impression Globi pallidi infarcts. Mild cerebral edema. Thank you for letting us participate in the care of this patient. If you are a health care provider and have any questions regarding this report, please contact the number below. For patients who have questions please contact the health nursing care attendant that requested your imaging first. Electronically signed by: Rex Addison MD, [facility] ([phone]), at 01/23/2022 4:27 AM XR Abdomen 1 view (Generic) (Exam End: 01/23/2022 2:10 AM) Impression The tip of the NG tube is in the distal stomach with redundant tubing looped in the fundus. Thank you for letting us participate in the care of this patient. If you are a health care provider and have any questions regarding this report, please contact the number below. For patients who have questions please contact the health nursing care attendant that requested your imaging first. Electronically signed by: Jacky Mello MD, [facility] ([phone]), at 01/23/2022 8:[address] Lower Extremity wo Contrast Left (Generic) (Exam End: 01/23/2022 3:58 AM) Impression LEFT 1. No osseous abnormality 2. The clinically palpable deep soft tissue mass is not identified with certainty. Equivocal ill-defined low density within vastus intermedialis muscle represents muscle injury, lesion or related to technique. 3. Subcutaneous and deep fascial edema of the LEFT lower pelvis and upper thigh. Findings are nonspecific and could be related to any combination of fasciitis, cellulitis, trauma or neoplastic infiltration. Consider supplementary MRI if the concern for soft tissue mass remains high. Thank you for letting us participate in the care of this patient. If you are a health care provider and have any questions regarding this report, please contact the number below. For patients who have questions please contact the health nursing care attendant that requested your imaging first. Electronically signed by: Melita Mills MD, [facility] ([phone]), at 01/24/2022 1:[address] Chest wo Contrast (Generic) (Exam End: 01/23/2022 3:58 AM) Impression FINDINGS/IMPRESSION: Airways: Endotracheal tube tip 3.1 cm above the maia. Lungs/Pleura: Partial collapse of the LLL dorsally/medially. Mild dependent atelectasis bilaterally. Mediastinum/[place]: Unremarkable. Cardiac/Vasculature: Unremarkable. Included Upper Abdomen: Esophagogastric tube loops within the fundus, terminating within the region of the pylorus. Fluid within the included upper small and large bowel segments. Osseous Structures: No acute abnormality identified. Thank you for letting us participate in the care of this patient. If you are a health care provider and have any questions regarding this report, please contact the number below. For patients who have questions please contact the health nursing care attendant that requested your imaging first. Electronically signed by: Rex Addison MD, [facility] ([phone]), at 01/23/2022 4:[address] Upper Extremity w Contrast Left (Exam End: 01/23/2022 3:58 AM) Impression Diffuse muscular hypoattenuation from the mid forearm into the hand could be sequela of edema/myositis or ischemia. Thank you for letting us participate in the care of this patient. If you are a health care provider and have any questions regarding this report, please contact the number below. For patients who have questions please contact the health nursing care attendant that requested your imaging first. Electronically signed by: Rex Addison MD, [facility] ([phone]), at 01/23/2022 4:58 AM XR Forearm Left (Generic) (Exam End: 01/23/2022 6:32 AM) Impression FINDINGS/IMPRESSION: No acute fracture of the radius or ulna seen. Diffuse soft tissue stranding and edema of the forearm. Preliminary report signed by: Alcira Queen at 01/23/2022 6:55 AM I have personally reviewed the image(s) and the resident's interpretation and agree with the findings, Rex Addison MD at 01/23/2022 7:14 AM Thank you for letting us participate in the care of this patient. If you are a health care provider and have any questions regarding this report, please contact the number below. For patients who have questions please contact the health nursing care attendant that requested your imaging first. Electronically signed by: Rex Addison MD, [facility] ([phone]), at 01/23/2022 7:14 AM XR Chest One View (Exam End: 01/23/2022 6:32 AM) Impression Right IJ central venous line with catheter tip projecting over the lower SVC. Preliminary report signed by: Alcira Queen at 01/23/2022 6:43 AM I have personally reviewed the image(s) and the resident's interpretation and agree with the findings, Rex Addison MD at 01/23/2022 6:56 AM Thank you for letting us participate in the care of this patient. If you are a health care provider and have any questions regarding this report, please contact the number below. For patients who have questions please contact the health nursing care attendant that requested your imaging first. Femur 2 views Left (Generic) (Exam End: 01/23/2022 2:04 PM) Impression No significant osseous finding. Thank you for letting us participate in the care of this patient. If you are a health care provider and have any questions regarding this report, please contact the number below. For patients who have questions please contact the health nursing care attendant that requested your imaging first. Electronically signed by: Lisandro Pruett MD, [facility] ([phone]), at 01/23/2022 2:10 PM XR Tibia Fibula Left (Generic) (Exam End: 01/23/2022 2:04 PM) Impression No bony abnormality seen. Thank you for letting us participate in the care of this patient. If you are a health care provider and have any questions regarding this report, please contact the number below. For patients who have questions please contact the health nursing care attendant that requested your imaging first. Electronically signed by: Jacky Mello MD, [facility] ([phone]), at 01/23/2022 2:07 PM XR Chest One View (Exam End: 01/23/2022 4:54 PM) Impression Lines and tubes are in position as above. Left internal jugular line is present with tip in the superior vena cava. Thank you for letting us participate in the care of this patient. If you are a health care provider and have any questions regarding this report, please contact the number below. For patients who have questions please contact the health nursing care attendant that requested your imaging first. Electronically signed by: Lisandro Pruett MD, [facility] ([phone]), at 01/23/2022 5:01 PM MRI Brain wo Contrast (Exam End: 01/24/2022 4:27 PM) Impression Acute globi pallidi infarctions. Scattered punctate infarctions in the cerebellar hemispheres. Thank you for letting us participate in the care of this patient. If you are a health care provider and have any questions regarding this report, please contact the number below. For patients who have questions please contact the health nursing care attendant that requested your imaging first. Electronically signed by: Bernadine Edward [facility] ([phone]), at 01/24/2022 4:[address] Angiogram [place] (Exam End: 01/24/2022 11:32 PM) Impression Normal appearance of the large and medium size arteries of the head and neck Thank you for letting us participate in the care of this patient. If you are a health care provider and have any questions regarding this report, please contact the number below. For patients who have questions please contact the health nursing care attendant that requested your imaging first. Angiogram Carotids (Exam End: 01/24/2022 11:32 PM) Impression Normal appearance of the large and medium size arteries of the head and neck Thank you for letting us participate in the care of this patient. If you are a health care provider and have any questions regarding this report, please contact the number below. For patients who have questions please contact the health nursing care attendant that requested your imaging first. Chest Abdomen Pelvis w Contrast (Generic) (Exam End: 01/30/2022 12:50 PM) Impression 1. A 7.5 x 2.7 cm hypodense lesion in the left gluteus medius with subtle rim enhancement, likely represents postoperative changes status post excisional debridement of the left gluteus medius. However, an abscess cannot be excluded. Recommend attention on follow-up. 2. Diffuse anasarca. 3. Hepatomegaly. I Alcira Queen MD discussed impression #1 with Agnieszka López APRN on 01/30/2022 2:56 PM. Preliminary report signed by: Alcira Queen at 01/30/2022 3:03 PM I have personally [...] who have questions please contact the health nursing care attendant that requested your imaging first. Assessment: Alix Holland??is a 31 y.o.??gentleman admitted to the MICU on 01/23/22 after being found down and encephalopathic by family with verbal reports of Fentanyl ingestion; this was followed by witnessed in-hospital [place] cardiac arrest at the receiving ED (hyperkalemia at the time). He was also noted to havesevere rhabdomyolysis with compartment syndrome and resultant ALTHEA. While inpatient has had multiple fasciotomies of L thigh, calf forearm and wrist with several OR returns since then for washouts, debridements, closures and vac exchanges. ??Previously completed treatment for MSSA pneumonia. ??Was found to have asymptomatic COVID-19 infection upon admission now with new symptoms so placed back on precautions per Infection control (though may be related to non-COVID causes) Scattered punctate infarcts on MR brain and CT COW/carotids from 01/24/22 normal. Neurology following-- believes MRI findings are more likely related to toxometabolic issues vs stroke and that weakness is not related to this Complex pain needs - adjusted HAND STRIPER yesterday with improvement Leukocytosis now down-trending with treatment of c dif. Also requiring prophylaxis abx with cefazolin until fasciotomy closures. Discussed with ortho and muscles debrided (gluteus) do not re-grow Less muscle loss in arm Addendum -ongoing bleeding out of the vac, bleeding around vac. Despite 5 units of blood today Hgb dropped to4.9 --additional 2 units ordered. Check INR/fibriongen -- suspect may need cryo and FFP given massive blood loss. Plan to transfer to ICU for continued care. Ortho at bedside -repacked wound, turning vac off for now. Pressures 80's responded to albumin and PRBC Plan: #Rhabdomyolysis??d/t LUE??+ LLE??Compartment Syndrome??with hyperkalemic cardiac arrest - monitor daily BMP - hyperkalemia protocol PRN, had HD today to fix K 5.9 prior to surgery ?? #HFrEF - TTE 01/24 showed EF46% and mild global hypokinesis - consider repeat limited echo next week and if appropriate a cardiology consult - start low dose bblocker, given ALTHEA/HyperK not a ARB/TAMIE candidate currently ?? # Multifacotorial Anemia #acute blood anemia perioepratively, likely ozzing as well - iron stuides show mild iron deficiency - folate low and B12 normal - continue folate acid supplement ?? # Leukocytosis / Neutrophilia --> C Diff - full infectious workup --> C Diff positive - continue PO vancomycin. Needs to stay on treatment dose until off other antibiotics with a 1 week tail (ie an additional week of treatment after cefazolin finishes) - continue empiric cefazolin until fasciotomy closes ?? # COVID-19 infection, Asymptomatic but now with sx's (though unclear to me whether actually new) - discussed with infection control and restarted precautions ?? # ALTHEA requiring PRESS PULLER; now on iHD # Hyponatremia (volume overloaded, not eating) # Hyperkalemia - Nephrology following - 1.5L fluid restriction in place ?? # Pain Control, c/b Chronic Opiate Abuse - adjusted HAND STRIPER - consider subboxone/BIT once more stable ad no longer going to and from the OR ? Physical Therapy referral- will be needed ?? DVT Prophylaxis = heparin ?? If currently a smoker - advised about smoking cessation and will provide smoking cessation material and support. ?? Pneumovax and Influenza Immunizations given as needed. ?? Discussed Advanced Directives and Code Status. The patient wishesto be FULL CODE. ?? DILCIA LOPEZ MD 02/05/2022 David Pagan MD - 02/05/2022 5:17 AM EDT ORTHOPAEDIC SURGERY INPATIENT PROGRESS NOTE Patient Name: Alix Holland Age: 31 y.o. Surgery/Issue: LLE/LUE debridement, LUE wound vac change. Attending: Dr. Garcia Date of surgery: 02/04/2022 SUBJECTIVE / INTERVAL HISTORY: AF, VSS. Tachy to 110s. Exam limited due to sedation. Patient denies chest pain, shortness of breath, nausea, vomiting. Unchanged numbness and weakness sin LUE and LLE. Hgb 5.2, Ca 6.4, K 5.9, Na 122. Nephrology was able to remove 500cc during dialysis due to hypotension, will attempt again today. Transfused 2 unit postop. W[place] output minimal from left forearm. FOCUSED REVIEW OF SYSTEMS: as above. Active Hospital Problems Diagnosis ? ? LUE, LLE compartment syndrome s/p fasciotimies, I&D 01/23/22, 01/26/22 (Dr. Garcia), I&D w/ partial closure 01/29/22 (Dr. Valdovinos), I&D 01/31/22 (Dr. Branch) ??? Transaminitis ??? Aspiration pneumonia ??? Rhabdomyolysis ??? Asymptomatic COVID-19 virus infection ??? Lactic acidosis ??? ALTHEA (acute kidney injury) ??? Continuous renal replacement therapy (CRRT) for acute renal failure ??? Cardiac arrest Resolved Hospital Problems No resolved problems to display. Active Non-Hospital Problems Diagnosis ??? Angioedema ??? Chest pain ??? Smoker ??? Mandible fracture MEDICATIONS: ??? heparin (porcine) (1,000 units/mL) injection 1,000-10,000 Units ??? HYDROmorphone (Dilaudid) (1 mg/mL) in sodium chloride 0.9% 50 mL HAND STRIPER infusion ??? HYDROmorphone (Dilaudid) (1 mg/mL) injection syringe 1 mg ??? sevelamer carbonate (Renvela) tablet 1,600 mg ??? diphenhydrAMINE (Benadryl) (50 mg/mL) injection 25 mg ??? prochlorperazine (Compazine) (5 mg/mL) injection 5 mg ??? ondansetron (pf) (Zofran) (2 mg/mL) injection 4 mg ??? naloxone (Narcan) (0.4 mg/mL) injection 0.2 mg ??? HAND STRIPER hutton ??? HYDROmorphone (mg) HAND STRIPER shift total and Settings verification ??? vancomycin (Vancocin) capsule 125 mg ??? ceFAZolin (Ancef) 1 g vial attached to sodium chloride 0.9% 50 mL Mini-Bag Plus ??? dronabinoL (Marinol) capsule 10 mg ??? senna-docusate (Pericolace) 8.6-50 mg per tablet 2 tablet ??? folic acid (Folvite) tablet 1,000 mcg ??? thiamine (Vitamin B1) tablet 100 mg ??? acetaminophen (Tylenol) tablet 1,000 mg ??? lidocaine (Lidoderm) 5% patch 3 patch AND lidocaine (Lidoderm) topical patch REMOVAL ??? pantoprazole (Protonix) injection 40 mg ??? glucose (Glutose) 40% oral geL OR dextrose 10% infusion OR glucagon (Glucagen) (1 mg/mL)injection solution 1 mg ??? heparin (porcine) (5,000 units/1 mL) subcutaneous injection 5,000 Units ??? HYDROmorphone 0 mg/kg/hr (02/04/22 1655) OBJECTIVE: Temp: [36.5 ??C (97.7 ??F)-37 ??C (98.6 ??F)] Heart Rate: [97-126] Resp: [12-21] BP: (94-153)/(47-84) Intake/Output Summary (Last 24 hours) at 02/05/2022 0517 Last data filed at 02/05/2022 0507 Gross per 24 hour Intake 2380.33 ml Output 2171 ml Net 209.33 ml Body mass index is 34.92 kg/m??. PE: General: partially sedated, responds to questions inconsistently Resp: Breathing comfortably on RA LUE: Dressing c/d/i, vac holding suction Sensation intact to light touch in r/m/u distributions Motor intact to wrist flexion/etension but no flex/ex of fingers. Brisk capillary refill distally, fingers warm/well-perfused. Radial +2 LLE: Dressing leaking significant amount of serosanguinous fluid. Sensory exam has shifted daily. 1/2 in saph, DP, sural distributions of foot. Absent proximal to ankle and in SP distribution. Motor absent in LLE. Brisk capillary refill distally, DP and PT signal present. Lab Results Component Value Date NA 122 (L) 02/05/2022 K 5.9 (H) 02/05/2022 CL 90 (L) 02/05/2022 CO2 24 02/05/2022 BUN 49 (H) 02/05/2022 CREATININE 4.98 (H) 02/05/2022 GLUCOSE 125 02/05/2022 GLUCFASTING 151 (H) 04/26/2021 CALCIUM 6.4 (CRIT) 02/05/2022 Lab Results Component Value Date WBC 30.1 (CRIT) 02/05/2022 HGB 5.2 (CRIT) 02/05/2022 HCT 14.8 (L) 02/05/2022 MCV 91.9 02/05/2022 PLATELET 363 (H) 02/05/2022 Lab Results Component Value Date INR 1.3 01/23/2022 ASSESSMENT / PLAN: Alix Holland is a 31 y.o. male 1 Day Post-Op s/p LUE/LLE debridement, LUE woundvac change. Please have patient be NPO. Patient will need I&D today again. We will touch base with primary team regarding dialysis scheduling. Patient needs foot AFO boot on the left. Activity: NWB LUE, NWB LLE in AFO boot DVT prophylaxis: Per primary Closure: Wound vacs (L volar forearm 1 white, 2 black, L thigh 2 black) Dressing: WVac as above to -125mmHg Antibiotics: continue ABx until fasciotomy sites closed David Pagan MD 02/05/2022 No future appointments. Associated attestation - Sigifredo Garcia MD - 02/05/2022 8:51 AM EDT Patient personally seen and examined by me. I discussed the patient and the plan for the patient's care with the primary author and reviewed the data. I have reviewed and agree with the findings and the plan of care as outlined below. POD1 s/p left thigh and buttock I&D, packing, and left forearm I&D, wound VAC exchange. Willrequire further debridements of his left buttock. Keep NPO for possible repeat I&D today Sigifredo Garcia MD Department of Orthopaedics 02/05/22 Nahed Fraser MD - 02/05/2022 12:30 AM EDT ORTHOPAEDIC SURGERY INPATIENT PROGRESS NOTE Patient Name: Alix Holland Age: 31 y.o. Surgery/Issue: LLE/LUE debridement, LUE wound vac change. Attending: Dr. Garcia Date of surgery: 02/04/2022 SUBJECTIVE / INTERVAL HISTORY: Exam limited due to sedation. Patient denies chest pain, shortness of breath, nausea, vomiting, numbness/weakness. FOCUSED REVIEW OF SYSTEMS: as above. Active Hospital Problems Diagnosis ? ? LUE, LLE compartment syndrome s/p fasciotimies, I&D 01/23/22, 01/26/22 (Dr. Garcia), I&D w/ partial closure 01/29/22 (Dr. Valdovinos), I&D 01/31/22 (Dr. Branch) ??? Transaminitis ??? Aspiration pneumonia ??? Rhabdomyolysis ??? Asymptomatic COVID-19 virus infection ??? Lactic acidosis ??? ALTHEA (acute kidney injury) ??? Continuous renal replacement therapy (CRRT) for acute renal failure ??? Cardiac arrest Resolved Hospital Problems No resolved problems to display. Active Non-Hospital Problems Diagnosis ??? Angioedema ??? Chest pain ??? Smoker ??? Mandible fracture MEDICATIONS: ??? heparin (porcine) (1,000 units/mL) injection 1,000-10,000 Units ??? HYDROmorphone (Dilaudid) (1 mg/mL) in sodium chloride 0.9% 50 mL HAND STRIPER infusion ??? HYDROmorphone (Dilaudid) (1 mg/mL) injection syringe 1 mg ??? sevelamer carbonate (Renvela) tablet 1,600 mg ??? diphenhydrAMINE (Benadryl) (50 mg/mL) injection 25 mg ??? prochlorperazine (Compazine) (5 mg/mL) injection 5 mg ??? ondansetron (pf) (Zofran) (2 mg/mL) injection 4 mg ??? naloxone (Narcan) (0.4 mg/mL) injection 0.2 mg ??? HAND STRIPER hutton ??? HYDROmorphone (mg) HAND STRIPER shift total and Settings verification ??? vancomycin (Vancocin) capsule 125 mg ??? ceFAZolin (Ancef) 1 g vial attached to sodium chloride 0.9% 50 mL Mini-Bag Plus ??? dronabinoL (Marinol) capsule 10 mg ??? senna-docusate (Pericolace) 8.6-50 mg per tablet 2 tablet ??? folic acid (Folvite) tablet 1,000 mcg ??? thiamine (Vitamin B1) tablet 100 mg ??? acetaminophen (Tylenol) tablet 1,000 mg ??? lidocaine (Lidoderm) 5% patch 3 patch AND lidocaine (Lidoderm) topical patch REMOVAL ??? pantoprazole (Protonix) injection 40 mg ??? glucose (Glutose) 40% oral geL OR dextrose 10% infusion OR glucagon (Glucagen) (1 mg/mL)injection solution 1 mg ??? heparin (porcine) (5,000 units/1 mL) subcutaneous injection 5,000 Units ??? HYDROmorphone 0 mg/kg/hr (02/04/22 1655) OBJECTIVE: Temp: [36.5 ??C (97.7 ??F)-37 ??C (98.6 ??F)] Heart Rate: [97-126] Resp: [12-21] BP: (96-153)/(47-84) Intake/Output Summary (Last 24 hours) at 02/05/2022 0031 Last data filed at 02/04/2022 2300 Gross per 24 hour Intake 1548 ml Output 2781 ml Net -1233 ml Body mass index is 35.94 kg/m??. PE: General: partially sedated, responds to questions inconsistently Resp: Breathing comfortably on RA LUE: Dressing c/d/i, vac holding suction Sensation intact to light touch in ax/r/m/u distributions Motor exam limited by sedation Brisk capillary refill distally, fingers warm/well-perfused LLE: Dressing leaking significant amount of serosanguinous fluid. Sensory exam limited by sedation Motor exam limited by sedation Brisk capillary refill distally, foot warm/well-perfused Lab Results Component Value Date NA 120 (L) 02/04/2022 K 5.7 (H) 02/04/2022 CL 91 (L) 02/04/2022 CO2 19 (L) 02/04/2022 BUN 64 (H) 02/04/2022 CREATININE 5.55 (H) 02/04/2022 GLUCOSE 100 02/04/2022 GLUCFASTING 151 (H) 04/26/2021 CALCIUM 6.3 (CRIT) 02/04/2022 Lab Results Component Value Date WBC 31.9 (CRIT) 02/04/2022 HGB 7.7 (L) 02/04/2022 HCT 21.4 (L) 02/04/2022 MCV 89.2 02/04/2022 PLATELET 303 02/04/2022 Lab Results Component Value Date INR 1.3 01/23/2022 ASSESSMENT / PLAN: Alix Holland is a 31 y.o. male 1 Day Post-Op s/p LUE/LLE debridement, LUE woundvac change. Doing well post-operatively. Discharge pending further evaluation and treatment of fasciotomy sites. Activity: NWB LUE, NWB LLE DVT prophylaxis: Per primary Closure: Wound vacs (L volar forearm 1 white, 2 black, L thigh 2 black) Dressing: WVac as above to -125mmHg Antibiotics: continue ABx until fasciotomy sites closed Nahed Fraser MD 02/05/2022 No future appointments. Dilcia Lopez MD - 02/04/2022 6:12 PM EDT Images from the original note were not included. Inpatient - Progress Note Admit Date: 01/23/2022 Hospital Day 12 days ID: Alix Holland is a 31 year male with a history of angioedema and polysusbtance use admitted for cardiac arrest, rhabdomyolysis, transaminitis, and ALTHEA in the setting of likely fentanyl overdose. Hospital course complicated by pneumonia and LUE and LLE compartment syndromes. Problem List: Active Hospital Problems Diagnosis ? ? LUE, LLE compartment syndrome s/p fasciotimies, I&D 01/23/22, 01/26/22 (Dr. Garcia), I&D w/ partial closure 01/29/22 (Dr. Valdovinos), I&D 01/31/22 (Dr. Branch) ??? Transaminitis ??? Aspiration pneumonia ??? Rhabdomyolysis ??? Asymptomatic COVID-19 virus infection ??? Lactic acidosis ??? ALTHEA (acute kidney injury) ??? Continuous renal replacement therapy (CRRT) for acute renal failure ??? Cardiac arrest Resolved Hospital Problems No resolved problems to display. Active Non-Hospital Problems Diagnosis ??? Angioedema ??? Chest pain ??? Smoker ??? Mandible fracture 24 Hour Events: Subjective: Tired and in pain especially in the left wrist, less somnolent Changed HAND STRIPER 4 hour limit and increased dose from 0.3 to 0.4 and kept the q10 minutes interval Overall very weak though worse on left -neuro thinks related to local inflammation Transfused 2 units PRBC's for hgb 5.6 with appropriate response More UOP, renal recommended not placing tunneled line yet Physical Exam: Last Set of Vitals and range of vitals over past 24 hours: Last value Range last 24 hrs Temperature Temp: 36.7 ??C (98 ??F) Temp: [36.5 ??C (97.7 ??F)-37.2 ??C (99 ??F)] Heart Rate Heart Rate: 100 Heart Rate: [97-111] Blood Pressure BP: 129/72 BP: (122-153)/(71-91) Respiratory Rate Resp: 15 Resp: [13-21] SpO2 SpO2: 100 % SpO2: [99 %-100 %] Physical Exam GENERAL: somnolent, intermittently falling asleep during interview, NAD HEENT: PERRLA CARDS: regular rate and rhythm PULM: no assessed due to decreased mobility ABDOMEN: nontender, no rebound or guarding EXTREMITIES: edematous upper and lower extremities, left more than right, wound vac in place on lefthand, unable to move his left foot, no sensation in left foot or left hand Laboratory (Last 24 Hours): Recent Results (from the past 24 hour(s)) Magnesium Result Value Ref Range Magnesium 0.88 0.69 - 1.07 mmol/L Phosphorus Result Value Ref Range Phosphorus 7.5 (H) 2.5 - 4.5 mg/dL Basic Metabolic Panel (non-fasting) Result Value Ref Range Glucose Lvl 100 65 - 199 mg/dL BUN 64 (H) 10 - 20 mg/dL Creatinine 5.55 (H) 0.80 - 1.50 mg/dL Sodium 120 (L) 135 - 145 mmol/L Potassium 5.7 (H) 3.5 - 5.0 mmol/L Chloride 91 (L) 98 - 107 mmol/L CO2 19 (L) 22 - 31 mmol/L Anion Gap 10 5 - 15 mmol/L Calcium 6.3 (CRIT) 8.5 - 10.5 mg/dL Estimated GFR 13 (L) >=60 mL/min/1.73 m?? Hemogram Result Value Ref Range WBC 31.9 (CRIT) 4.0 - 9.5 x10(3)/mcL RBC 2.40 (L) 4.58 - 5.54 x10(6)/mcL Hemoglobin 7.7 (L) 13.7 - 16.5 g/dL Hematocrit 21.4 (L) 40.5 - 48.5 % MCV 89.2 82.9 - 93.1 fL MCH 32.1 27.5 - 32.1 pg MCHC 36.0 (H) 32.0 - 35.7 g/dL Platelets 303 145 - 357 x10(3)/mcL RDWSD 46.1 (H) 36.0 - 45.0 fL RDWCV 14.6 (H) 11.4 - 13.8 % MPV 9.8 7.6 - 12.9 fL nRBC % Auto 0.0 % nRBC Abs Auto 0.000 0.000 - 0.000 x10(3)/mcL Differential, Automated Result Value Ref Range Neutrophils % 71.7 % Neutr Abs (ANC) 22.88 (H) 1.70 - 6.10 x10(3)/mcL Lymphocytes % 8.4 % Lymphocytes Abs 2.7 0.9 - 3.2 x10(3)/mcL Monocytes % 8.2 % Monocyte Abs 2.6 (H) 0.3 - 0.9 x10(3)/mcL Eosinophils % 1.4 % Eosinophils Abs 0.4 0.0 - 0.4 x10(3)/mcL Basophils % 0.6 % Basophils Abs 0.2 (H) 0.0 - 0.1 x10(3)/mcL Immature Gran % 9.70 % Gemini Gran Abs 3.09 (H) 0.00 - 0.04 x10(3)/mcL Albumin Level Result Value Ref Range Albumin 1.7 (L) 3.2 - 5.2 g/dL Microbiology: Microbiology Results (Last 30 days) Procedure Component Value Units Date/Time C. Difficile Screen [[id number]] (Abnormal) Collected: 02/01/22 1355 Lab Status: Final result Specimen: Stool Updated: 02/01/22 1618 C Diff Screen Positive Comment: PCR Pos C. diff?? Positive (GDH positive, toxin antigen negative, toxin PCR positive) DNA from a toxigenic strain of C. difficile was detected, although the free toxin itself was not detected.?? These results cannot distinguish between colonization and infection. They must be interpreted within the patient???s overall clinical context. Consider other causes for diarrhea or the presence of a non-toxigenic strain. Patient needs to remain on Soap & Water Contact Precautions until discharge or approval by Infection Prevention. Blood culture [[id number]] Collected: 02/01/22 0635 Lab Status: Preliminary result Specimen: Blood Updated: 02/04/22 1502 Blood Culture No growth at 3 days. Blood culture [[id number]] Collected: 02/01/22 0625 Lab Status: Preliminary result Specimen: Blood Pediatric Updated: 02/04/22 1502 Blood Culture No growth at 3 days. Blood culture [[id number]] Collected: 01/28/22 0345 Lab Status: Final result Specimen: Blood Updated: 02/02/22 0701 Blood Culture No growth at 5 days. MRSA PCR [[id number]] Collected: 01/24/22 1310 Lab Status: Final result Specimen: Nasopharyngeal Swab Updated: 01/25/22 2224 MRSA Result Negative MRSA Interp -- Negative for methicillin-resistant Staphylococcus aureus (MRSA) This test was performed using the [employer]?? Dx System and the Xpert MRSA Assay. The MRSA target DNA was not detected. The sample processing control and probe check were valid. The performance of this test was determined by the [facility] [place] [facility]. It has been cleared by the U.S. Food and Drug Administration for clinical use. Comment: [VERIFIED DATE]01.25.22 Verified By:Alfonso Soto (Electronic Signature) MRSA PCR [[id number]] Collected: 01/23/22 1247 Lab Status: Final result Specimen: Nasopharyngeal Swab Updated: 01/25/22 1023 MRSA Result Negative MRSA Interp -- Negative for methicillin-resistant Staphylococcus aureus (MRSA) This test was performed using the [employer] Dx System and the Xpert MRSA Assay. The MRSA target DNA was not detected. The sample processing control and probe check were valid. The performance of this test was determined by the [facility] [place] [facility]. It has been cleared by the U.S. Food and Drug Administration for clinical use. Comment: [VERIFIED DATE]01.25.22 Verified By:Nora Shay (Electronic Signature) Lower Respiratory Culture Tracheal Aspirate [[id number]] (Abnormal) (Susceptibility) Collected: 01/23/22 1150 Lab Status: Final result Specimen: Tracheal Aspirate Updated: 01/25/22 1001 Lower Respiratory Culture -- Many Staphylococcus aureus Few mixed bacterial morphotypes suggestive of normal upper respiratory yessy Gram Stain -- Many Neutrophils No squamous epithelial cells Moderate Gram Positive Cocci Susceptibility Staphylococcus aureus VITEK 2 METHOD Clindamycin Sensitive Erythromycin Sensitive Gentamicin Sensitive [1] Oxacillin Sensitive [2] Tetracycline Sensitive Trimethoprim/Sulfa Sensitive Vancomycin Sensitive [1] Gentamicin is not appropriate for [place]-therapy. [2] Oxacillin (methicillin) susceptibility is a surrogate for the oral and parenteral cephalosporins, beta-lactam combination agents (amoxicillin-clavulanate, ampicillin-sulbactam and piperacillin-tazobactam) and carbapenem agents. It is NOT a surrogate for penicillin, ampicillin or piperacillin susceptibility. Linear View Blood culture [[id number]] Collected: 01/23/22 0600 Lab Status: Final result Specimen: Blood Updated: 01/28/22 0701 Blood Culture No growth at 5 days. Blood culture [[id number]] Collected: 01/23/22 0126 Lab Status: Final result Specimen: Blood Updated: 01/28/22 0701 Blood Culture No growth at 5 days. COVID-19 PCR [[id number]] (Abnormal) Collected: 01/23/22 0044 Lab Status: Final result Specimen: Tracheal Aspirate Updated: 01/23/22 1215 SARS-CoV-2 RNA Detected Comment: This result should be interpreted in combination with the clinical observations, patient history and epidemiological information in making a final diagnosis. For testing of asymptomatic individuals, assay performance characteristics and clinical utility have not been evaluated. Testing for SARS-CoV-2 (Severe acute respiratory syndrome coronavirus 2, formerly known as 2019 novel coronavirus or 2019-nCoV) to aid in the diagnosis of COVID-19 is performed using the [employer] SARS-CoV-2 Assay as authorized by the FDA Emergency Use Authorization (EUA). This EUA assay is intended for In-vitro Diagnostic (IVD) use with respiratory specimens such as nasopharyngeal swabs collected from individuals during the acute phase of infection. This assay is performed based on the instructions for use provided by [employer] and additional guidance provided by CDC and FDA. Testing is performed in the [facility] within the Department of Pathology and Laboratory Medicine at [facility], certified under the Clinical Laboratory Improvement Amendments of 1988 (CLIA), 42 U.S.C. 263a, to perform high complexity tests. Assay performance has been verified according to clinical laboratory regulatory requirements for use with specimens collected from individuals suspected of COVID-19. Test results are provided above. A result of Not Detected indicates that the viral RNA target is not present above the limit of detection, but does not preclude SARS-CoV-2 infection. False negative results may occur if a specimen is improperly collected, transported or handled; if amplification inhibitors are present; or if inadequate numbers of viral particles are present in the specimen. When a diagnostic test is negative, the possibility of a false negative result should be considered in the context of a patient's recent exposures and the presence of clinical signs and symptoms consistent with COVID-19. A result of Detected indicates that RNA from SARS-CoV-2 was detected and the patient is infected. As required or requested by public health authorities, positive specimens may be sent for additional testing. Positive and negative predictive values for this test are highly dependent on disease prevalence. A result of Invalid indicates that neither the viral RNA targets nor the internal control target was detected. An invalid result suggests the presence of inhibitors. Recollection and re-testing is recommended in the case of an invalid result. CDC COVID-19 criteria for testing on human specimens and clinical management guidance information are available at the CDC Coronavirus Disease 2019 (COVID-19) webpage under Information for Healthcare Professionals (https://www.cdc.gov/coronavirus/2019-ncov/hcp/index.html) Additional information about this and other EUA tests can be found in provider and patient fact sheets at the following FDA website: https://www.fda.gov/medical-devices/nizfaplpyfo-fpubhdi-4996-vwwsw-96-reyhigizw- cbr-djmmrjntauooit-icdbuby-devices/jfnmu-jzeoixpiqqm-pscp SARS-Cov-2 RNA Source Trach Asp MRSA PCR [[id number]] Collected: 01/23/22 0044 Lab Status: Final result Specimen: Nasopharyngeal Swab Updated: 01/25/22 1024 MRSA Result Negative MRSA Interp -- Negative for methicillin-resistant Staphylococcus aureus (MRSA) This test was performed using the GeneXpert?? Dx System and the Xpert MRSA Assay. The MRSA target DNA was not detected. The sample processing control and probe check were valid. The performance of this test was determined by the [facility] [place] [facility]. It has been cleared by the U.S. Food and Drug Administration for clinical use. Comment: [VERIFIED DATE]01.25.22 Verified By:Nora Shay (Electronic Signature) Radiology: Results for orders placed or performed during the hospital encounter of 01/23/22 XR Chest One View (Exam End: 01/23/2022 2:10 AM) Impression ET tube with its tip in appropriate position. Thank you for letting us participate in the care of this patient. If you are a health care provider and have any questions regarding this report, please contact the number below. For patients who have questions please contact the health nursing care attendant that requested your imaging first. Head wo Contrast (Generic) (Exam End: 01/23/2022 3:58 AM) Impression Globi pallidi infarcts. Mild cerebral edema. Thank you for letting us participate in the care of this patient. If you are a health care provider and have any questions regarding this report, please contact the number below. For patients who have questions please contact the health nursing care attendant that requested your imaging first. Electronically signed by: Rex Addison MD, [facility] ([phone]), at 01/23/2022 4:27 AM XR Abdomen 1 view (Generic) (Exam End: 01/23/2022 2:10 AM) Impression The tip of the NG tube is in the distal stomach with redundant tubing looped in the fundus. Thank you for letting us participate in the care of this patient. If you are a health care provider and have any questions regarding this report, please contact the number below. For patients who have questions please contact the health nursing care attendant that requested your imaging first. Electronically signed by: Jacky Mello MD, [facility] ([phone]), at 01/23/2022 8:[address] Lower Extremity wo Contrast Left (Generic) (Exam End: 01/23/2022 3:58 AM) Impression LEFT 1. No osseous abnormality 2. The clinically palpable deep soft tissue mass is not identified with certainty. Equivocal ill-defined low density within vastus intermedialis muscle represents muscle injury, lesion or related to technique. 3. Subcutaneous and deep fascial edema of the LEFT lower pelvis and upper thigh. Findings are nonspecific and could be related to any combination of fasciitis, cellulitis, trauma or neoplastic infiltration. Consider supplementary MRI if the concern for soft tissue mass remains high. Thank you for letting us participate in the care of this patient. If you are a health care provider and have any questions regarding this report, please contact the number below. For patients who have questions please contact the health nursing care attendant that requested your imaging first. Electronically signed by: Melita Mills MD, [facility] ([phone]), at 01/24/2022 1:[address] Chest wo Contrast (Generic) (Exam End: 01/23/2022 3:58 AM) Impression FINDINGS/IMPRESSION: Airways: Endotracheal tube tip 3.1 cm above the maia. Lungs/Pleura: Partial collapse of the LLL dorsally/medially. Mild dependent atelectasis bilaterally. Mediastinum/[place]: Unremarkable. Cardiac/Vasculature: Unremarkable. Included Upper Abdomen: Esophagogastric tube loops within the fundus, terminating within the region of the pylorus. Fluid within the included upper small and large bowel segments. Osseous Structures: No acute abnormality identified. Thank you for letting us participate in the care of this patient. If you are a health care provider and have any questions regarding this report, please contact the number below. For patients who have questions please contact the health nursing care attendant that requested your imaging first. Electronically signed by: Rex Addison MD, [facility] ([phone]), at 01/23/2022 4:[address] Upper Extremity w Contrast Left (Exam End: 01/23/2022 3:58 AM) Impression Diffuse muscular hypoattenuation from the mid forearm into the hand could be sequela of edema/myositis or ischemia. Thank you for letting us participate in the care of this patient. If you are a health care provider and have any questions regarding this report, please contact the number below. For patients who have questions please contact the health nursing care attendant that requested your imaging first. Electronically signed by: Rex Addison MD, [facility] ([phone]), at 01/23/2022 4:58 AM XR Forearm Left (Generic) (Exam End: 01/23/2022 6:32 AM) Impression FINDINGS/IMPRESSION: No acute fracture of the radius or ulna seen. Diffuse soft tissue stranding and edema of the forearm. Preliminary report signed by: Alcira Queen at 01/23/2022 6:55 AM I have personally reviewed the image(s) and the resident's interpretation and agree with the findings, Rex Addison MD at 01/23/2022 7:14 AM Thank you for letting us participate in the care of this patient. If you are a health care provider and have any questions regarding this report, please contact the number below. For patients who have questions please contact the health nursing care attendant that requested your imaging first. Electronically signed by: Rex Addison MD, [facility] ([phone]), at 01/23/2022 7:14 AM XR Chest One View (Exam End: 01/23/2022 6:32 AM) Impression Right IJ central venous line with catheter tip projecting over the lower SVC. Preliminary report signed by: Alcira Queen at 01/23/2022 6:43 AM I have personally reviewed the image(s) and the resident's interpretation and agree with the findings, Rex Addison MD at 01/23/2022 6:56 AM Thank you for letting us participate in the care of this patient. If you are a health care provider and have any questions regarding this report, please contact the number below. For patients who have questions please contact the health nursing care attendant that requested your imaging first. Femur 2 views Left (Generic) (Exam End: 01/23/2022 2:04 PM) Impression No significant osseous finding. Thank you for letting us participate in the care of this patient. If you are a health care provider and have any questions regarding this report, please contact the number below. For patients who have questions please contact the health nursing care attendant that requested your imaging first. Electronically signed by: Lisandro Pruett MD, [facility] ([phone]), at 01/23/2022 2:10 PM XR Tibia Fibula Left (Generic) (Exam End: 01/23/2022 2:04 PM) Impression No bony abnormality seen. Thank you for letting us participate in the care of this patient. If you are a health care provider and have any questions regarding this report, please contact the number below. For patients who have questions please contact the health nursing care attendant that requested your imaging first. Electronically signed by: Jacky Mello MD, [facility] ([phone]), at 01/23/2022 2:07 PM XR Chest One View (Exam End: 01/23/2022 4:54 PM) Impression Lines and tubes are in position as above. Left internal jugular line is present with tip in the superior vena cava. Thank you for letting us participate in the care of this patient. If you are a health care provider and have any questions regarding this report, please contact the number below. For patients who have questions please contact the health nursing care attendant that requested your imaging first. Electronically signed by: Lisandro Pruett MD, [facility] ([phone]), at 01/23/2022 5:01 PM MRI Brain wo Contrast (Exam End: 01/24/2022 4:27 PM) Impression Acute globi pallidi infarctions. Scattered punctate infarctions in the cerebellar hemispheres. Thank you for letting us participate in the care of this patient. If you are a health care provider and have any questions regarding this report, please contact the number below. For patients who have questions please contact the health nursing care attendant that requested your imaging first. Electronically signed by: Bernadine Edward [facility] ([phone]), at 01/24/2022 4:[address] Angiogram [place] (Exam End: 01/24/2022 11:32 PM) Impression Normal appearance of the large and medium size arteries of the head and neck Thank you for letting us participate in the care of this patient. If you are a health care provider and have any questions regarding this report, please contact the number below. For patients who have questions please contact the health nursing care attendant that requested your imaging first. Angiogram Carotids (Exam End: 01/24/2022 11:32 PM) Impression Normal appearance of the large and medium size arteries of the head and neck Thank you for letting us participate in the care of this patient. If you are a health care provider and have any questions regarding this report, please contact the number below. For patients who have questions please contact the health nursing care attendant that requested your imaging first. Chest Abdomen Pelvis w Contrast (Generic) (Exam End: 01/30/2022 12:50 PM) Impression 1. A 7.5 x 2.7 cm hypodense lesion in the left gluteus medius with subtle rim enhancement, likely represents postoperative changes status post excisional debridement of the left gluteus medius. However, an abscess cannot be excluded. Recommend attention on follow-up. 2. Diffuse anasarca. 3. Hepatomegaly. I Alcira Queen MD discussed impression #1 with Agnieszka López APRN on 01/30/2022 2:56 PM. Preliminary report signed by: Alcira Queen at 01/30/2022 3:03 PM I have personally [...] who have questions please contact the health nursing care attendant that requested your imaging first. Assessment: Alix Holland??is a 31 y.o.??gentleman admitted to the MICU on 01/23/22 after being found down and encephalopathic by family with verbal reports of Fentanyl ingestion; this was followed by witnessed in-hospital [place] cardiac arrest at the receiving ED (hyperkalemia at the time). He was also noted to havesevere rhabdomyolysis with compartment syndrome and resultant ALTHEA. While inpatient has had multiple fasciotomies of L thigh, calf forearm and wrist with several OR returns since then for washouts, debridements, closures and vac exchanges. ??Previously completed treatment for MSSA pneumonia. ??Was found to have asymptomatic COVID-19 infection upon admission now with new symptoms so placed back on precautions per Infection control . Scattered punctate infarcts on MR brain and CT COW/carotids from 01/24/22 normal. Neurology following-- believes MRI findings are more likely related to toxometabolic issues vs stroke and that weakness is not related to this Complex pain needs - adjusted HAND STRIPER Leukocytosis now down-trending with treatment of c dif. Also requiring prophylaxis abx with cefazolin until fasciotomy closures. Duplexes were ordered for concern for DVT however these were not able to be completed due to Vac continue HAND STRIPER Plan: #Rhabdomyolysis??d/t LUE??+ LLE??Compartment Syndrome??with hyperkalemic cardiac arrest - monitor daily BMP - hyperkalemia protocol PRN ?? #HFrEF - TTE 01/24 showed EF46% and mild global hypokinesis - consider repeat limited echo next week and if appropriate a cardiology consult ?? # Multifacotorial Anemia #acute blood anemia perioepratively, likely ozzing as well - iron stuides show mild iron deficiency - folate low and B12 normal - continue folate acid supplement ?? # Leukocytosis / Neutrophilia --> C Diff - full infectious workup --> C Diff positive - continue PO vancomycin. Needs to stay on treatment dose until off other antibiotics with a 1 week tail (ie an additional week of treatment after cefazolin finishes) - continue empiric cefazolin until fasciotomy closes ?? # COVID-19 infection, Asymptomatic but now with sx's (though unclear to me whether actually new) - discussed with infection control and restarted precautions ?? # ALTHEA requiring PRESS PULLER; now on iHD # Hyponatremia (volume overloaded, not eating) # Hyperkalemia - Nephrology following - 1.5L fluid restriction in place ?? # Pain Control, c/b Chronic Opiate Abuse - adjusted HAND STRIPER -on patient controlled anesthesia ? Physical Therapy referral- will be needed ?? DVT Prophylaxis = heparin ?? If currently a smoker - advised about smoking cessation and will provide smoking cessation material and support. ?? Pneumovax and Influenza Immunizations given as needed. ?? Discussed Advanced Directives and Code Status. The patient wishesto be FULL CODE. ?? DILCIA LOPEZ MD 02/04/2022 Dania Thomas MD - 02/04/2022 12:38 PM EDT NEPHROLOGY PROGRESS NOTE Reason for consult: ALTHEA/PRESS PULLER Baseline creatinine: ~0.7 (as of 04/2021) Interval History: Patient was seen and examined in the ICU on HD. Clinical and laboratory data reviewed. Stable treatment for the first 3 hours, then problem with access pressures. Dialysis staff felt thiswas possibly due to catheter adhering to vessel wall, rather than any sort of clotting in the catheter. We elected to stop treatment at that point. A/P: ALTHEA - Improvement in urine output yesterday, 310cc. Would try giving a single dose of furosemide 120mg IV tomorrow (non-dialysis today) and assess response. Anemia - Transfused ~1L PRBCs yesterday. Epo 12,000 units given today at dialysis. Metabolic labs - * Hypocalcemia - Corrected calcium at or slightly below goal. Could consider oral supplementation (e.g., calcium carbonate 1g TID), but will defer to primary team. * Hyperphosphatemia - Added sevelamer 800mg with meals yesterday. * Hyponatremia - Unable to excrete free water, so this is due to intake. Would try to limit fluids to the extent possible. Dania Thomas MD Nephrology Pager: [phone] Phoenix Dhillon RN - 02/04/2022 6:48 AM EDT OUTCOME EVALUATION NOTE: OUTCOME SUMMARY: Patient remains alert and oriented. He has been maxing out his HAND STRIPER pumps limit and increased number of attempts vs dose delivered, tried giving him PRN dilaudid and scheduled tylenol on top of repositioning his affected limbs to a comfortable position but he still constantly complaining of pain 10/10 most of the time. Team were notified, given him 1 time dose of IV dilaudid which worked great as he was able to rest and sleep right after. NPO post midnight with fluid restriction reinforced. Labs results relayed to team, given PO tums, EKG done. Seen by ortho and mentioned they wanted to do the HD first prior OR, notified HD RN regarding this. Ortho team changed the negative pressure 75mmHg on both wound vac. PLAN MOVING FORWARD: Pain management. Follow up APS PT/OT, patient may benefit from AFO boots Neurovasc assement q4 INDIVIDUALIZED FALL PREVENTION INTERVENTIONS: Patient-specific fall risk factors per assessment: [current deficits]: generalized weakness, lines, drains Assistance [level of assistance required for transfers and ambulation]: 2A Supervision [direct monitoring required during toileting and ADLs]: Direct, frequent purposeful rounds Surveillance [continuous indirect monitoring]: ICU monitoring Patient-specific fall prevention interventions for sensory deficits provided, if applicable: [X] Yes CARE PLAN GOAL OUTCOME EVALUATION: David Pagan MD - 02/04/2022 5:24 AM EDT ORTHOPAEDIC SURGERY INPATIENT PROGRESS NOTE Patient Name: Alix Holland Age: 31 y.o. Surgery/Issue: LUE, LLE compartment syndrome s/p fasciotimies, I&D 01/23/22, 01/26/22 (Dr. Garcia), I&D w/ partial closure 01/29/22 (Dr. Valdovinos), I&D 01/31/22 (Dr. Branch), I&D 02/02/22 (Dr. Starks) Attending: Dr. Garcia Date of surgery: 02/02/2022 SUBJECTIVE / INTERVAL HISTORY: Transferred to hospital medicine. AF, tachycardic to the 110s overnight. WBC 31.9 from 30.1 Resting comfortably in MICU. Mental status improved, patient conversant. Hgb 7.7 after transfusing 2 unit for Hgb 6.8, likely ABLA. Vac output 2.5L and 2L over the last 48 hours. Thigh vac 1.7, arm 250cc SS output over last 24 hours. HAND STRIPER for pain control. Phos 7.5, Na 120, Cr 5.55, K 5.7 ALTHAE requiring PRESS PULLER, now iHD this AM Patient denies chest pain, shortness of breath, nausea, vomiting. Covid and c. Diff positive FOCUSED REVIEW OF SYSTEMS: as above. Active Hospital Problems Diagnosis ? ? LUE, LLE compartment syndrome s/p fasciotimies, I&D 01/23/22, 01/26/22 (Dr. Garcia), I&D w/ partial closure 01/29/22 (Dr. Valdovinos), I&D 01/31/22 (Dr. Branch) ??? Transaminitis ??? Aspiration pneumonia ??? Rhabdomyolysis ??? Asymptomatic COVID-19 virus infection ??? Lactic acidosis ??? ALTHEA (acute kidney injury) ??? Continuous renal replacement therapy (CRRT) for acute renal failure ??? Cardiac arrest Resolved Hospital Problems No resolved problems to display. Active Non-Hospital Problems Diagnosis ??? Angioedema ??? Chest pain ??? Smoker ??? Mandible fracture MEDICATIONS: ??? sevelamer carbonate (Renvela) tablet 1,600 mg ??? HYDROmorphone (Dilaudid) tablet 2 mg ??? HYDROmorphone (Dilaudid) (1 mg/mL) in sodium chloride 0.9% 50 mL HAND STRIPER infusion ??? diphenhydrAMINE (Benadryl) (50 mg/mL) injection 25 mg ??? prochlorperazine (Compazine) (5 mg/mL) injection 5 mg ??? ondansetron (pf) (Zofran) (2 mg/mL) injection 4 mg ??? naloxone (Narcan) (0.4 mg/mL) injection 0.2 mg ??? HAND STRIPER hutton ??? HYDROmorphone (mg) HAND STRIPER shift total and Settings verification ??? vancomycin (Vancocin) capsule 125 mg ??? ceFAZolin (Ancef) 1 g vial attached to sodium chloride 0.9% 50 mL Mini-Bag Plus ??? dronabinoL (Marinol) capsule 10 mg ??? senna-docusate (Pericolace) 8.6-50 mg per tablet 2 tablet ??? folic acid (Folvite) tablet 1,000 mcg ??? thiamine (Vitamin B1) tablet 100 mg ??? acetaminophen (Tylenol) tablet 1,000 mg ??? lidocaine (Lidoderm) 5% patch 3 patch AND lidocaine (Lidoderm) topical patch REMOVAL ??? pantoprazole (Protonix) injection 40 mg ??? glucose (Glutose) 40% oral geL OR dextrose 10% infusion OR glucagon (Glucagen) (1 mg/mL)injection solution 1 mg ??? heparin (porcine) (5,000 units/1 mL) subcutaneous injection 5,000 Units ??? HYDROmorphone 0 mg/kg/hr (02/02/22 1331) OBJECTIVE: Temp: [36.8 ??C (98.2 ??F)-37.2 ??C (99 ??F)] Heart Rate: [100-111] Resp: [14-21] BP: (137-167)/(82-98) Intake/Output Summary (Last 24 hours) at 02/04/2022 0524 Last data filed at 02/04/2022 0405 Gross per 24 hour Intake 3550 ml Output 2420 ml Net 1130 ml Body mass index is 34.95 kg/m??. PE: General: awake/alert, responds to questions. Somnolent but responsive. CV: RR assessed peripherally Resp: Breathing comfortably on RA LUE: VAC Holding suction -75mmHg with 250cc Sensation diminished to light touch in ax/r/m/u distributions. Fingers with no flexion/extension. Wrist with slight flexion/extension 2/5. Brisk capillary refill distally, fingers warm/well-perfused. 2+ radial pulse LLE: Wound vac in place on lateral thigh. Black sponge observed. No appreciable bleeding or palpable fluctuance. Holding suction at -75 with 1.7L SS output overnight. Lateral LLE fasciotomy Dressing c/d/i Sensory 1/2 in the sural distribution, absent sensation in the leg/thigh, SP, DP, and saph Unable to dorsi or plantar- flex toes . No dorsiflexion or plantarflexion. Brisk capillary refill distally, foot warm/well-perfused. Palpable DP/PT pulses Lab Results Component Value Date NA 120 (L) 02/04/2022 K 5.7 (H) 02/04/2022 CL 91 (L) 02/04/2022 CO2 19 (L) 02/04/2022 BUN 64 (H) 02/04/2022 CREATININE 5.55 (H) 02/04/2022 GLUCOSE 100 02/04/2022 GLUCFASTING 151 (H) 04/26/2021 CALCIUM 6.3 (CRIT) 02/04/2022 Lab Results Component Value Date WBC 31.9 (CRIT) 02/04/2022 HGB 7.7 (L) 02/04/2022 HCT 21.4 (L) 02/04/2022 MCV 89.2 02/04/2022 PLATELET 303 02/04/2022 Lab Results Component Value Date INR 1.3 01/23/2022 ASSESSMENT / PLAN: Alix Holland is a 31 y.o. male 2 Days Post-Op s/p repeat irrigation and debridement of the left upper and lower extremity with wound VAC exchange. Doing well post-operatively. Planfor repeat I&D with possible closure vs need for coverage 02/04. WVs changed to -75 suction. Needs dialysis this AM, OR this afternoon. Activity: NWB LUE, NWB LLE DVT prophylaxis: Per primary Closure: Wound vacs (L volar forearm 1 white & 2 black, L thigh 2 black) Dressing: WVac as above to -125mmHg Antibiotics: continue ABx until fasciotomy sites closed David Pagan MD 02/04/2022 7001 No future appointments. Associated attestation - Sigifredo Garcia MD - 02/05/2022 8:50 AM EDT Patient personally seen and examined by me. I discussed the patient and the plan for the patient's care with the primary author and reviewed the data. I have reviewed and agree with the findings and the plan of care as outlined below. OR today for repeat I&D, wound VAC exchanges. Sigifredo Garcia MD Department of Orthopaedics 02/05/22 Dilcia Lopez MD - 02/03/2022 4:47 PM EDT Images from the original note were not included. Inpatient - Progress Note Admit Date: 01/23/2022 Hospital Day 11 days ID: Alix Holland is a 31 year male with a history of angioedema and polysusbtance use admitted for cardiac arrest, rhabdomyolysis, transaminitis, and ALTHEA in the setting of likely fentanyl overdose. Hospital course complicated by pneumonia and LUE and LLE compartment syndromes. Problem List: Active Hospital Problems Diagnosis ? ? LUE, LLE compartment syndrome s/p fasciotimies, I&D 01/23/22, 01/26/22 (Dr. Garcia), I&D w/ partial closure 01/29/22 (Dr. Valdovinos), I&D 01/31/22 (Dr. Branch) ??? Transaminitis ??? Aspiration pneumonia ??? Rhabdomyolysis ??? Asymptomatic COVID-19 virus infection ??? Lactic acidosis ??? ALTHAE (acute kidney injury) ??? Continuous renal replacement therapy (CRRT) for acute renal failure ??? Cardiac arrest Resolved Hospital Problems No resolved problems to display. Active Non-Hospital Problems Diagnosis ??? Angioedema ??? Chest pain ??? Smoker ??? Mandible fracture 24 Hour Events: Transferred to hospital medicine Subjective: Tired and in pain especially in the left wrist, dozing off in between questions Overall very weak though worse on left -neuro thinks related to local inflammation Transfused 2 units PRBC's for hgb 5.6 Has had significant vac output but not alexsandra blood - anemia multifactorial. Ortho plans to take backto OR tomorrow 80 cc UOP Physical Exam: Last Set of Vitals and range of vitals over past 24 hours: Last value Range last 24 hrs Temperature Temp: 36.8 ??C (98.2 ??F) Temp: [36.5 ??C (97.7 ??F)-37.2 ??C (99 ??F)] Heart Rate Heart Rate: (!) 103 Heart Rate: [101-120] Blood Pressure BP: 156/82 BP: (139-157)/(70-92) Respiratory Rate Resp: 14 Resp: [14-23] SpO2 SpO2: 100 % SpO2: [99 %-100 %] Physical Exam GENERAL: somnolent, intermittently falling asleep during interview, NAD HEENT: PERRLA CARDS: regular rate and rhythm PULM: no assessed due to decreased mobility ABDOMEN: nontender, no rebound or guarding EXTREMITIES: edematous upper and lower extremities, left more than right, wound vac in place on lefthand, unable to move his left foot, no sensation in left foot or left hand Laboratory (Last 24 Hours): Recent Results (from the past 24 hour(s)) Magnesium Result Value Ref Range Magnesium 0.84 0.69 - 1.07 mmol/L Phosphorus Result Value Ref Range Phosphorus 6.4 (H) 2.5 - 4.5 mg/dL Basic Metabolic Panel (non-fasting) Result Value Ref Range Glucose Lvl 117 65 - 199 mg/dL BUN 53 (H) 10 - 20 mg/dL Creatinine 4.40 (H) 0.80 - 1.50 mg/dL Sodium 123 (L) 135 - 145 mmol/L Potassium 5.2 (H) 3.5 - 5.0 mmol/L Chloride 93 (L) 98 - 107 mmol/L CO2 22 22 - 31 mmol/L Anion Gap 8 5 - 15 mmol/L Calcium 6.3 (CRIT) 8.5 - 10.5 mg/dL Estimated GFR 18 (L) >=60 mL/min/1.73 m?? Folate, serum Result Value Ref Range Folate Lvl 3.9 (L) 4.8 - 24.2 ng/mL Vitamin B12 Result Value Ref Range Vitamin B-12 535 232 - 1,245 pg/mL Hemogram Result Value Ref Range WBC 30.8 (CRIT) 4.0 - 9.5 x10(3)/mcL RBC 1.72 (L) 4.58 - 5.54 x10(6)/mcL Hemoglobin 5.6 (CRIT) 13.7 - 16.5 g/dL Hematocrit 15.9 (L) 40.5 - 48.5 % MCV 92.4 82.9 - 93.1 fL MCH 32.6 (H) 27.5 - 32.1 pg MCHC 35.2 32.0 - 35.7 g/dL Platelets 310 145 - 357 x10(3)/mcL RDWSD 45.4 (H) 36.0 - 45.0 fL RDWCV 14.2 (H) 11.4 - 13.8 % MPV 10.2 7.6 - 12.9 fL nRBC % Auto 0.0 % nRBC Abs Auto 0.000 0.000 - 0.000 x10(3)/mcL Differential, Automated Result Value Ref Range Neutrophils % 68.7 % Neutr Abs (ANC) 21.19 (H) 1.70 - 6.10 x10(3)/mcL Lymphocytes % 10.5 % Lymphocytes Abs 3.2 0.9 - 3.2 x10(3)/mcL Monocytes % 8.7 % Monocyte Abs 2.7 (H) 0.3 - 0.9 x10(3)/mcL Eosinophils % 1.6 % Eosinophils Abs 0.5 (H) 0.0 - 0.4 x10(3)/mcL Basophils % 0.3 % Basophils Abs 0.1 0.0 - 0.1 x10(3)/mcL Immature Gran % 10.20 % Gemini Gran Abs 3.13 (H) 0.00 - 0.04 x10(3)/mcL Scan, Peripheral Blood Result Value Ref Range Plat Estimate Normal RBC Morphology Abnormal Macrocytes 1-5 /HPF Microcytes 1-5 /HPF Stippled RBCs Present >1/HPF Hemoglobin and Hematocrit, blood Result Value Ref Range Hemoglobin 5.6 (CRIT) 13.7 - 16.5 g/dL Hematocrit 16.0 (L) 40.5 - 48.5 % Prepare RBC Result Value Ref Range Dispensed? Yes Prepare RBC Result Value Ref Range Dispensed? Yes POCT Glucose Result Value Ref Range POC Glucose 128 65 - 199 mg/dL POCT Glucose Result Value Ref Range POC Glucose 129 65 - 199 mg/dL Hemogram Result Value Ref Range WBC 30.1 (CRIT) 4.0 - 9.5 x10(3)/mcL RBC 2.14 (L) 4.58 - 5.54 x10(6)/mcL Hemoglobin 6.8 (L) 13.7 - 16.5 g/dL Hematocrit 19.4 (L) 40.5 - 48.5 % MCV 90.7 82.9 - 93.1 fL MCH 31.8 27.5 - 32.1 pg MCHC 35.1 32.0 - 35.7 g/dL Platelets 333 145 - 357 x10(3)/mcL RDWSD 45.9 (H) 36.0 - 45.0 fL RDWCV 14.2 (H) 11.4 - 13.8 % MPV 10.0 7.6 - 12.9 fL nRBC % Auto 0.0 % nRBC Abs Auto 0.000 0.000 - 0.000 x10(3)/mcL POCT Glucose Result Value Ref Range POC Glucose 127 65 - 199 mg/dL Microbiology: Microbiology Results (Last 30 days) Procedure Component Value Units Date/Time C. Difficile Screen [[id number]] (Abnormal) Collected: 02/01/22 1355 Lab Status: Final result Specimen: Stool Updated: 02/01/22 1618 C Diff Screen Positive Comment: PCR Pos C. diff?? Positive (GDH positive, toxin antigen negative, toxin PCR positive) DNA from a toxigenic strain of C. difficile was detected, although the free toxin itself was not detected.?? These results cannot distinguish between colonization and infection. They must be interpreted within the patient???s overall clinical context. Consider other causes for diarrhea or the presence of a non-toxigenic strain. Patient needs to remain on Soap & Water Contact Precautions until discharge or approval by Infection Prevention. Blood culture [[id number]] Collected: 02/01/22 0635 Lab Status: Preliminary result Specimen: Blood Updated: 02/03/22 1501 Blood Culture No growth at 2 days. Blood culture [[id number]] Collected: 02/01/22 0625 Lab Status: Preliminary result Specimen: Blood Pediatric Updated: 02/03/22 1501 Blood Culture No growth at 2 days. Blood culture [[id number]] Collected: 01/28/22 0345 Lab Status: Final result Specimen: Blood Updated: 02/02/22 0701 Blood Culture No growth at 5 days. MRSA PCR [[id number]] Collected: 01/24/22 1310 Lab Status: Final result Specimen: Nasopharyngeal Swab Updated: 01/25/22 2224 MRSA Result Negative MRSA Interp -- Negative for methicillin-resistant Staphylococcus aureus (MRSA) This test was performed using the GeneXpert?? Dx System and the Xpert MRSA Assay. The MRSA target DNA was not detected. The sample processing control and probe check were valid. The performance of this test was determined by the [facility] [place] [facility]. It has been cleared by the U.S. Food and Drug Administration for clinical use. Comment: [VERIFIED DATE]01.25.22 Verified By:Alfonso Soto (Electronic Signature) MRSA PCR [[id number]] Collected: 01/23/22 1247 Lab Status: Final result Specimen: Nasopharyngeal Swab Updated: 01/25/22 1023 MRSA Result Negative MRSA Interp -- Negative for methicillin-resistant Staphylococcus aureus (MRSA) This test was performed using the GeneXpert?? Dx System and the Xpert MRSA Assay. The MRSA target DNA was not detected. The sample processing control and probe check were valid. The performance of this test was determined by the [facility] [place] [facility]. It has been cleared by the U.S. Food and Drug Administration for clinical use. Comment: [VERIFIED DATE]01.25.22 Verified By:Nora Shay (Electronic Signature) Lower Respiratory Culture Tracheal Aspirate [[id number]] (Abnormal) (Susceptibility) Collected: 01/23/22 1150 Lab Status: Final result Specimen: Tracheal Aspirate Updated: 01/25/22 1001 Lower Respiratory Culture -- Many Staphylococcus aureus Few mixed bacterial morphotypes suggestive of normal upper respiratory yessy Gram Stain -- Many Neutrophils No squamous epithelial cells Moderate Gram Positive Cocci Susceptibility Staphylococcus aureus VITEK 2 METHOD Clindamycin Sensitive Erythromycin Sensitive Gentamicin Sensitive [1] Oxacillin Sensitive [2] Tetracycline Sensitive Trimethoprim/Sulfa Sensitive Vancomycin Sensitive [1] Gentamicin is not appropriate for [place]-therapy. [2] Oxacillin (methicillin) susceptibility is a surrogate for the oral and parenteral cephalosporins, beta-lactam combination agents (amoxicillin-clavulanate, ampicillin-sulbactam and piperacillin-tazobactam) and carbapenem agents. It is NOT a surrogate for penicillin, ampicillin or piperacillin susceptibility. Linear View Blood culture [[id number]] Collected: 01/23/22 0600 Lab Status: Final result Specimen: Blood Updated: 01/28/22 0701 Blood Culture No growth at 5 days. Blood culture [[id number]] Collected: 01/23/22 0126 Lab Status: Final result Specimen: Blood Updated: 01/28/22 0701 Blood Culture No growth at 5 days. COVID-19 PCR [[id number]] (Abnormal) Collected: 01/23/22 0044 Lab Status: Final result Specimen: Tracheal Aspirate Updated: 01/23/22 1215 SARS-CoV-2 RNA Detected Comment: This result should be interpreted in combination with the clinical observations, patient history and epidemiological information in making a final diagnosis. For testing of asymptomatic individuals, assay performance characteristics and clinical utility have not been evaluated. Testing for SARS-CoV-2 (Severe acute respiratory syndrome coronavirus 2, formerly known as 2019 novel coronavirus or 2019-nCoV) to aid in the diagnosis of COVID-19 is performed using the Active[employer] m SARS-CoV-2 Assay as authorized by the FDA Emergency Use Authorization (EUA). This EUA assay is intended for In-vitro Diagnostic (IVD) use with respiratory specimens such as nasopharyngeal swabs collected from individuals during the acute phase of infection. This assay is performed based on the instructions for use provided by [employer] and additional guidance provided by CDC and FDA. Testing is performed in the [facility] within the Department of Pathology and Laboratory Medicine at [facility], certified under the Clinical Laboratory Improvement Amendments of 1988 (CLIA), 42 U.S.C. 263a, to perform high complexity tests. Assay performance has been verified according to clinical laboratory regulatory requirements for use with specimens collected from individuals suspected of COVID-19. Test results are provided above. A result of Not Detected indicates that the viral RNA target is not present above the limit of detection, but does not preclude SARS-CoV-2 infection. False negative results may occur if a specimen is improperly collected, transported or handled; if amplification inhibitors are present; or if inadequate numbers of viral particles are present in the specimen. When a diagnostic test is negative, the possibility of a false negative result should be considered in the context of a patient's recent exposures and the presence of clinical signs and symptoms consistent with COVID-19. A result of Detected indicates that RNA from SARS-CoV-2 was detected and the patient is infected. As required or requested by public health authorities, positive specimens may be sent for additional testing. Positive and negative predictive values for this test are highly dependent on disease prevalence. A result of Invalid indicates that neither the viral RNA targets nor the internal control target was detected. An invalid result suggests the presence of inhibitors. Recollection and re-testing is recommended in the case of an invalid result. CDC COVID-19 criteria for testing on human specimens and clinical management guidance information are available at the CDC Coronavirus Disease 2019 (COVID-19) webpage under Information for Healthcare Professionals (https://www.cdc.gov/coronavirus/2019-ncov/hcp/index.html) Additional information about this and other EUA tests can be found in provider and patient fact sheets at the following FDA website: https://www.fda.gov/medical-devices/rgkiujnzcet-efvcaxg-3053-bsaoy-92-rxagvewaz- jvw-ptjwqkqoemcigo-ffckzqa-devices/dcche-umqmidehejy-qlgs SARS-Cov-2 RNA Source Trach Asp MRSA PCR [[id number]] Collected: 01/23/22 0044 Lab Status: Final result Specimen: Nasopharyngeal Swab Updated: 01/25/22 1024 MRSA Result Negative MRSA Interp -- Negative for methicillin-resistant Staphylococcus aureus (MRSA) This test was performed using the GeneXpert?? Dx System and the Xpert MRSA Assay. The MRSA target DNA was not detected. The sample processing control and probe check were valid. The performance of this test was determined by the [facility] [place] [facility]. It has been cleared by the U.S. Food and Drug Administration for clinical use. Comment: [VERIFIED DATE]01.25.22 Verified By:Nora Shay (Electronic Signature) Radiology: Results for orders placed or performed during the hospital encounter of 01/23/22 XR Chest One View (Exam End: 01/23/2022 2:10 AM) Impression ET tube with its tip in appropriate position. Thank you for letting us participate in the care of this patient. If you are a health care provider and have any questions regarding this report, please contact the number below. For patients who have questions please contact the health nursing care attendant that requested your imaging first. Head wo Contrast (Generic) (Exam End: 01/23/2022 3:58 AM) Impression Globi pallidi infarcts. Mild cerebral edema. Thank you for letting us participate in the care of this patient. If you are a health care provider and have any questions regarding this report, please contact the number below. For patients who have questions please contact the health nursing care attendant that requested your imaging first. Electronically signed by: Rex Addison MD, [facility] ([phone]), at 01/23/2022 4:27 AM XR Abdomen 1 view (Generic) (Exam End: 01/23/2022 2:10 AM) Impression The tip of the NG tube is in the distal stomach with redundant tubing looped in the fundus. Thank you for letting us participate in the care of this patient. If you are a health care provider and have any questions regarding this report, please contact the number below. For patients who have questions please contact the health nursing care attendant that requested your imaging first. Electronically signed by: Jacky Mello MD, [facility] ([phone]), at 01/23/2022 8:[address] Lower Extremity wo Contrast Left (Generic) (Exam End: 01/23/2022 3:58 AM) Impression LEFT 1. No osseous abnormality 2. The clinically palpable deep soft tissue mass is not identified with certainty. Equivocal ill-defined low density within vastus intermedialis muscle represents muscle injury, lesion or related to technique. 3. Subcutaneous and deep fascial edema of the LEFT lower pelvis and upper thigh. Findings are nonspecific and could be related to any combination of fasciitis, cellulitis, trauma or neoplastic infiltration. Consider supplementary MRI if the concern for soft tissue mass remains high. Thank you for letting us participate in the care of this patient. If you are a health care provider and have any questions regarding this report, please contact the number below. For patients who have questions please contact the health nursing care attendant that requested your imaging first. Electronically signed by: Melita Mills MD, [facility] ([phone]), at 01/24/2022 1:[address] Chest wo Contrast (Generic) (Exam End: 01/23/2022 3:58 AM) Impression FINDINGS/IMPRESSION: Airways: Endotracheal tube tip 3.1 cm above the maia. Lungs/Pleura: Partial collapse of the LLL dorsally/medially. Mild dependent atelectasis bilaterally. Mediastinum/[place]: Unremarkable. Cardiac/Vasculature: Unremarkable. Included Upper Abdomen: Esophagogastric tube loops within the fundus, terminating within the region of the pylorus. Fluid within the included upper small and large bowel segments. Osseous Structures: No acute abnormality identified. Thank you for letting us participate in the care of this patient. If you are a health care provider and have any questions regarding this report, please contact the number below. For patients who have questions please contact the health nursing care attendant that requested your imaging first. Electronically signed by: Rex Addison MD, [facility] ([phone]), at 01/23/2022 4:[address] Upper Extremity w Contrast Left (Exam End: 01/23/2022 3:58 AM) Impression Diffuse muscular hypoattenuation from the mid forearm into the hand could be sequela of edema/myositis or ischemia. Thank you for letting us participate in the care of this patient. If you are a health care provider and have any questions regarding this report, please contact the number below. For patients who have questions please contact the health nursing care attendant that requested your imaging first. Forearm Left (Generic) (Exam End: 01/23/2022 6:32 AM) Impression FINDINGS/IMPRESSION: No acute fracture of the radius or ulna seen. Diffuse soft tissue stranding and edema of the forearm. Preliminary report signed by: Alcira Queen at 01/23/2022 6:55 AM I have personally reviewed the image(s) and the resident's interpretation and agree with the findings, Rex Addison MD at 01/23/2022 7:14 AM Thank you for letting us participate in the care of this patient. If you are a health care provider and have any questions regarding this report, please contact the number below. For patients who have questions please contact the health nursing care attendant that requested your imaging first. Chest One View (Exam End: 01/23/2022 6:32 AM) Impression Right IJ central venous line with catheter tip projecting over the lower SVC. Preliminary report signed by: Alcira Queen at 01/23/2022 6:43 AM I have personally reviewed the image(s) and the resident's interpretation and agree with the findings, Rex Addison MD at 01/23/2022 6:56 AM Thank you for letting us participate in the care of this patient. If you are a health care provider and have any questions regarding this report, please contact the number below. For patients who have questions please contact the health nursing care attendant that requested your imaging first. Electronically signed by: Rex Addison MD, [facility] ([phone]), at 01/23/2022 6:56 AM XR Femur 2 views Left (Generic) (Exam End: 01/23/2022 2:04 PM) Impression No significant osseous finding. Thank you for letting us participate in the care of this patient. If you are a health care provider and have any questions regarding this report, please contact the number below. For patients who have questions please contact the health nursing care attendant that requested your imaging first. Electronically signed by: Lisandro Pruett MD, [facility] ([phone]), at 01/23/2022 2:10 PM XR Tibia Fibula Left (Generic) (Exam End: 01/23/2022 2:04 PM) Impression No bony abnormality seen. Thank you for letting us participate in the care of this patient. If you are a health care provider and have any questions regarding this report, please contact the number below. For patients who have questions please contact the health nursing care attendant that requested your imaging first. Electronically signed by: Jacky Mello MD, [facility] ([phone]), at 01/23/2022 2:07 PM XR Chest One View (Exam End: 01/23/2022 4:54 PM) Impression Lines and tubes are in position as above. Left internal jugular line is present with tip in the superior vena cava. Thank you for letting us participate in the care of this patient. If you are a health care provider and have any questions regarding this report, please contact the number below. For patients who have questions please contact the health nursing care attendant that requested your imaging first. Electronically signed by: Lisandro Pruett MD, [facility] ([phone]), at 01/23/2022 5:01 PM MRI Brain wo Contrast (Exam End: 01/24/2022 4:27 PM) Impression Acute globi pallidi infarctions. Scattered punctate infarctions in the cerebellar hemispheres. Thank you for letting us participate in the care of this patient. If you are a health care provider and have any questions regarding this report, please contact the number below. For patients who have questions please contact the health nursing care attendant that requested your imaging first. Electronically signed by: Bernadine Edward [facility] ([phone]), at 01/24/2022 4:[address] Angiogram [place] (Exam End: 01/24/2022 11:32 PM) Impression Normal appearance of the large and medium size arteries of the head and neck Thank you for letting us participate in the care of this patient. If you are a health care provider and have any questions regarding this report, please contact the number below. For patients who have questions please contact the health nursing care attendant that requested your imaging first. Angiogram Carotids (Exam End: 01/24/2022 11:32 PM) Impression Normal appearance of the large and medium size arteries of the head and neck Thank you for letting us participate in the care of this patient. If you are a health care provider and have any questions regarding this report, please contact the number below. For patients who have questions please contact the health nursing care attendant that requested your imaging first. Chest Abdomen Pelvis w Contrast (Generic) (Exam End: 01/30/2022 12:50 PM) Impression 1. A 7.5 x 2.7 cm hypodense lesion in the left gluteus medius with subtle rim enhancement, likely represents postoperative changes status post excisional debridement of the left gluteus medius. However, an abscess cannot be excluded. Recommend attention on follow-up. 2. Diffuse anasarca. 3. Hepatomegaly. I Alcira Queen MD discussed impression #1 with Agnieszka López APRN on 01/30/2022 2:56 PM. Preliminary report signed by: Alcira Queen at 01/30/2022 3:03 PM I have personally [...] who have questions please contact the health nursing care attendant that requested your imaging first. Electronically signed by: Melita Mills MD, [facility] ([phone]), at 01/30/2022 3:20 PM Assessment: Alix Holland??is a 31 y.o.??gentleman admitted to the MICU on 01/23/22 after being found down and encephalopathic by family with verbal reports of Fentanyl ingestion; this was followed by witnessed in-hospital [place] cardiac arrest at the receiving ED (hyperkalemia at the time). He was also noted to havesevere rhabdomyolysis with compartment syndrome and resultant ALTHEA. While inpatient has had multiple fasciotomies of L thigh, calf forearm and wrist with several OR returns since then for washouts, debridements, closures and vac exchanges. ??Previously completed treatment for MSSA pneumonia. ??Was found to have asymptomatic COVID-19 infection upon admission. Scattered punctate infarcts on MR brain and CT COW/carotids from 01/24/22 normal. Neurology following-- believes MRI findings are morelikely related to toxometabolic issues vs stroke and that weakness is not related to this ??Complex pain needs however his requirements have greatly improved and??he is now off gtts and standing agents. Patient's hemoglobin has dropped to 5.6 with output of 1.7 L of serosanguinous fluids from wound vac. As above anemia multifacotiral and high output in vac also related to anasarca Leukocytosis now down-trending with treatment of c dif. Also requiring prophylaxis abx with cefazolin until fasciotomy closures. Duplexes were ordered for concern for DVT however these were not able to be completed due to Vac continue HAND STRIPER Plan: #Rhabdomyolysis??d/t LUE??+ LLE??Compartment Syndrome??with hyperkalemic cardiac arrest - monitor daily BMP - hyperkalemia protocol PRN ?? #HFrEF - TTE 01/24 showed EF46% and mild global hypokinesis - consider cardiology consult when appropriate ?? # Multifacotorial Anemia #acute blood anemia perioepratively, likely ozzing as well - iron stuides show mild iron deficiency - folate low and B12 normal - continue folate acid supplement ?? # Leukocytosis / Neutrophilia --> C Diff - full infectious workup --> C Diff positive - continue PO vancomycin. Needs to stay on treatment dose until off other antibiotics with a 1 week tail (ie an additional week of treatment after cefazolin finishes) - continue empiric cefazolin until fasciotomy closes ?? # COVID-19 infection, Asymptomatic - no longer requires precautions ?? # ALTHEA requiring PRESS PULLER; now on iHD # Hyponatremia (volume overloaded, not eating) # Hyperkalemia - Nephrology following - 1.5L fluid restriction in place ?? # Pain Control, c/b Chronic Opiate Abuse - acute pain service consult appreciated -on patient controlled anesthesia ? Physical Therapy referral- will be needed ?? DVT Prophylaxis = heparin ?? If currently a smoker - advised about smoking cessation and will provide smoking cessation material and support. ?? Pneumovax and Influenza Immunizations given as needed. ?? Discussed Advanced Directives and Code Status. The patient wishesto be FULL CODE. ?? DILCIA LOPEZ MD 02/03/2022 Vinod Wilcox RN - 02/03/2022 3:48 PM EDT NPO all day, transitioned to regular diet in afternoon, plan for NPO at midnight for OR today. Continued to endorse 9/10 pain, dosing between care/falling asleep during conversations, appears relaxed.Maintained 1.5 fluid restriction. RBC x2 for critical hgb of 5.6, second transfusion pending completi on. Large to modecate amounts of sanguinous output from NPWTs to LLE and LUE, see results. IncreasedUOP this shift compared to overnight. Father and niece at bedside, supportive. NOP @ midnight for OR7 Dania Thomas MD - 02/03/2022 2:04 PM EDT NEPHROLOGY PROGRESS NOTE Reason for consult: ALTHEA/PRESS PULLER Baseline creatinine: ~0.7 (as of 04/2021) Interval History: Patient was seen and examined in the ICU. He is off COVID-19+ precautions. Clinical and laboratory data reviewed. Feeling okay. Says dialysis went well yesterday. He is anticipating return to the OR today. Patient Vitals for the past 8 hrs: BP Temp Temp src Pulse Resp SpO2 02/03/22 1138 146/87 37.2 ??C (99 ??F) Oral (!) 103 18 100 % 02/03/22 0851 150/87 36.9 ??C (98.4 ??F) Oral (!) 109 17 -- 02/03/22 0800 145/85 37.2 ??C (99 ??F) Oral (!) 101 14 100 % Somewhat somnolent, but communicative. NAD. NCAT. Clear sclerae. Clear lungs. Tachycardic. Abdomen is benign. Peripheral edema, most notable in LUE and LLE. Wound vac on LUE. Appropriate mood and affect. A/P: ALTHEA - Remains oligo-anuric. Next dialysis tomorrow pending evidence of renal recovery. Anemia - Getting transfusion today. Will give epo 12,000 units tomorrow. Metabolic labs - * Hypocalcemia - Corrected calcium at or slightly below goal. Could consider oral supplementation (e.g., calcium carbonate 1g TID), but will defer to primary team. * Hyperphosphatemia - If taking PO, would add sevelamer 800mg with meals. Dania Thomas MD Nephrology Pager: [phone] Amberly Hardy OT - 02/03/2022 1:09 PM EDT Occupational Therapy Note Document Type: contact Total Minutes, Occupational Therapy: 0 Reason: Patient with low Hgb, 5.6. Defer OT. Will follow up as able and when appropriate. Pager: [phone] Amberly Hardy OT 02/03/2022 Occupational Therapy Rehabilitation Department Charlotte Castañeda RD - 02/03/2022 11:40 AM EDT Nutrition Progress Note Alix Holland is a 31 y.o. male with a PMH significant for hypertension, angioedema requiring intubation (unclear trigger), GERD, gastritis, esophagitis, and urachal cyst s/p I&D, and polysubstance use (including EtOH, cocaine, heroin) who presents to the ICU on 01/23/2022 with cardiac arrest s/p ROSC, likely due to hyperkalemia in the setting of rhabdomyolysis, ALTHEA, and metabolic acidosis. Incidentally found to be COVID-positive. Reason for intervention: Follow up Nutrition Recommendations: Minimal nutrition since admit (~12 days), frequent NPO for OR/procedures Please limit NPO time - suggest PN as a bridge Regular diet If po intake improves suggest renal diet Monitor weight Monitor manuel Communicated nutrition recs to provider Medicine pager #[phone]. Active Orders Diet NPO diet (Give Meds) Frequency: Effective Midnight Number of Occurrences: Until Specified NPO diet (Give Meds) Frequency: Effective Midnight Number of Occurrences: Until Specified Enteral access: none Oxygen Therapy/airway: O2 Device: None (Room air) Lab Results Component Value Date NA 123 (L) 02/03/2022 K 5.2 (H) 02/03/2022 CL 93 (L) 02/03/2022 CO2 22 02/03/2022 BUN 53 (H) 02/03/2022 CREATININE 4.40 (H) 02/03/2022 ESTGFR 18 (L) 02/03/2022 MAGNESIUM 0.84 02/03/2022 CALCIUM 6.3 (CRIT) 02/03/2022 PHOS 6.4 (H) 02/03/2022 AST 418 (H) 01/28/2022 ALT 237 (H) 01/28/2022 ALKPHOS 88 01/28/2022 BILITOT 0.4 01/28/2022 BILIDIR 0.3 01/28/2022 TRIG 359 01/26/2022 CRP <3.0 04/26/2021 [id number] 535 02/03/2022 SFOLATE 3.9 (L) 02/03/2022 IRON 41 (L) 02/02/2022 Lab Results Component Value Date POCGLU 128 02/03/2022 POCGLU 135 02/02/2022 Skin Status: Shift Pressure Injury Prevention Occiput: No Injury Thoracic Spine: No Injury Sacral: No Injury Ischial - left: No Injury Ischial - right: No Injury Heel - left: No Injury Heel - right: No Injury Elbow - left: No Injury Elbow - right: No Injury Device Sites: O2 sat monitor, IV sites, ayala, BP Cuff, ECG Leads Other Sites: wound vac Relevant medications: D10 with NS 100ml/hr, marinol, folic acid, protonix, pericolace, thiamine Last Bowel Movement: 02/01/22 I/O from last 2 shifts: Intake/Output Summary (Last 24 hours) at 02/03/2022 1140 Last data filed at 02/03/2022 0800 Gross per 24 hour Intake 4313.1 ml Output 2200 ml Net 2113.1 ml Admit Weight: 101.8 kg Estimated body mass index is 34.95 kg/m?? as calculated from the following: Height as of this encounter: 182.9 cm (6'). Weight as of this encounter: 116.9 kg (257 lb 11.5 oz). [place] Body Weight: 81 kg Usual Body Weight: unknown Wt Readings from Last 10 Encounters: 02/02/22 116.9 kg (257 lb 11.5 oz) 04/28/21 98.1 kg (216 lb 4.3 oz) 02/22/19 108.9 kg (240 lb) 05/03/18 113.4 kg (250 lb) 04/27/13 90.7 kg (200 lb) Patient Vitals for the past 168 hrs: Weight 02/02/22 0600 116.9 kg (257 lb 11.5 oz) 02/01/22 0200 114.8 kg (253 lb 1.4 oz) 01/31/22 0400 114.5 kg (252 lb 6.8 oz) 01/30/22 0200 113.4 kg (250 lb) 01/29/22 2130 116.7 kg (257 lb 4.4 oz) 01/29/22 0000 116.7 kg (257 lb 4.4 oz) 01/28/22 0000 116.1 kg (255 lb 15.3 oz) Assessment: Nutrition intake and intake history/Interview: TF d/c on 01/29. Off CRRT, now on HD. Diet was advancedto regular, per nursing documentation 0% po intake of meals. Diet has been NPO since 02/02. 01/29: Pt off sedation and extubated. Pt now on shift PRESS PULLER. TF frequently held for OR, have not advanced past trickle TF. TF d/c today, no access at this time. 01/25: Patient intubated and sedated. Pt to OR today for wound vacs. Estimated needs: Calories: [id number] (20-25 kcal/kg IBW) for the first 7-10 days in the ICU Protein: 122 grams (1.5 g/kg IBW) while on HD Nutrition Focused Physical Exam (NFPE): Not performed In attempts to reserve PPE equipment for critical needs and to limit exposure, Clinical Nutrition will not be performing Nutrition Focused PhysicalExams on COVID-19 pending or COVID-19 positive patients Protein-calorie Malnutrition: Not enough data to assess (BUSTER Pickens J Parenteral Enteral Nutr. 2012 November; 36(3): 273-83) Nutrition to continue to follow up while inpatient Thank you, Charlotte Castañeda RD Pager #[phone] Cnadida Teran RN - 02/03/2022 11:39 AM EDT Patient Name: Alix Holland Administrative Services Manager: Dania Thomas Administrative Services Manager Requested Clinic: [facility] [address] [place] [address] PHONE NUMBER Contact Phone/ First date of dialysis: 02/02/2022 Estimated Start Date: 02/08/2022 Schedule Preference: M/W/F afternoons Diagnosis: Acute Renal Failure (Patient expected to regain function) Where will this patient be discharged to? home Is this patient trach or vent dependent? No Does this patient have an L-VAD or Life Vest? No Does patient receive continuous medications via infusion pump? No Does this patient have out-patient dialysis history? No Is this patient ambulatory? No pt currently has open fasciotomies Can this patient sit in a standard chair to dialyze? Yes Is patient HEP B positive? No Can this patient sign their own legal consents? Yes Willie Dubon MD - 02/03/2022 5:30 AM EDT ORTHOPAEDIC SURGERY INPATIENT PROGRESS NOTE Patient Name: Alix Holland Age: 31 y.o. Surgery/Issue: LUE, LLE compartment syndrome s/p fasciotimies, I&D 01/23/22, 01/26/22 (Dr. Garcia), I&D w/ partial closure 01/29/22 (Dr. Valdovinos), I&D 01/31/22 (Dr. Branch), I&D 02/02/22 (Dr. Starks) Attending: Dr. Garcia Date of surgery: 02/02/2022 SUBJECTIVE / INTERVAL HISTORY: Transferred to hospital medicine. AF, tachycardic to the 110s overnight. WBC 33.6 (02/02 12:40) from 30.5 Resting comfortably in MICU. Mental status improved, patient conversant. Hgb 7.4 after transfusing 1 unit for Hgb 6.4 02/01, likely ABLA HAND STRIPER for pain control. ALTHEA requiring PRESS PULLER, now iHD Patient denies chest pain, shortness of breath, nausea, vomiting. Covid and c. Diff positive FOCUSED REVIEW OF SYSTEMS: as above. Active Hospital Problems Diagnosis ? ? LUE, LLE compartment syndrome s/p fasciotimies, I&D 01/23/22, 01/26/22 (Dr. Garcia), I&D w/ partial closure 01/29/22 (Dr. Valdovinos), I&D 01/31/22 (Dr. Branch) ??? Transaminitis ??? Aspiration pneumonia ??? Rhabdomyolysis ??? Asymptomatic COVID-19 virus infection ??? Lactic acidosis ??? ALTHEA (acute kidney injury) ??? Continuous renal replacement therapy (CRRT) for acute renal failure ??? Cardiac arrest Resolved Hospital Problems No resolved problems to display. Active Non-Hospital Problems Diagnosis ??? Angioedema ??? Chest pain ??? Smoker ??? Mandible fracture MEDICATIONS: ??? HYDROmorphone (Dilaudid) tablet 2 mg ??? HYDROmorphone (Dilaudid) (1 mg/mL) in sodium chloride 0.9% 50 mL HAND STRIPER infusion ??? diphenhydrAMINE (Benadryl) (50 mg/mL) injection 25 mg ??? prochlorperazine (Compazine) (5 mg/mL) injection 5 mg ??? ondansetron (pf) (Zofran) (2 mg/mL) injection 4 mg ??? naloxone (Narcan) (0.4 mg/mL) injection 0.2 mg ??? HAND STRIPER hutton ??? HYDROmorphone (mg) HAND STRIPER shift total and Settings verification ??? vancomycin (Vancocin) capsule 125 mg ??? ceFAZolin (Ancef) 1 g vial attached to sodium chloride 0.9% 50 mL Mini-Bag Plus ??? heparin (porcine) (1,000 units/mL) injection 1,000-10,000 Units ??? bicarbonate CRRT (NxSTAGE) 3 mEq/L K+, 3 mEq/L Ca++, 5,000 mL Solution 5 each ??? potassium phosphate (0.06 mmol/mL) in sodium chloride 0.9% continuous infusion (CRRT) ??? calcium gluconate 15 g in sodium chloride 0.9% 250 mL infusion ??? dronabinoL (Marinol) capsule 10 mg ??? dextrose 10% 1,000 mL with sodium chloride 154 mEq infusion ??? senna-docusate (Pericolace) 8.6-50 mg per tablet 2 tablet ??? folic acid (Folvite) tablet 1,000 mcg ??? thiamine (Vitamin B1) tablet 100 mg ??? acetaminophen (Tylenol) tablet 1,000 mg ??? lidocaine (Lidoderm) 5% patch 3 patch AND lidocaine (Lidoderm) topical patch REMOVAL ??? pantoprazole (Protonix) injection 40 mg ??? heparin (porcine) 50 units/mL in sodium chloride 0.45% 500 mL infusion ??? glucose (Glutose) 40% oral geL OR dextrose 10% infusion OR glucagon (Glucagen) (1 mg/mL)injection solution 1 mg ??? heparin (porcine) (5,000 units/1 mL) subcutaneous injection 5,000 Units ??? HYDROmorphone 0 mg/kg/hr (02/02/22 1331) ??? bicarbonate CRRT with 3 mEq/L K+, 3 mEq/L Ca++ 5 each (02/01/22 0309) ??? potassium phos in 0.9% sodium chloride (CRRT) Stopped (01/30/22 0815) ??? calcium gluconate Stopped (02/01/22 0655) ??? Dextrose 10% with Custom Additives 100 mL/hr at 02/02/228 ??? heparin (porcine) infusion Stopped (02/01/22 0655) OBJECTIVE: Temp: [36.5 ??C (97.7 ??F)-37.1 ??C (98.8 ??F)] Heart Rate: [97-124] Resp: [13-24] BP: (117-155)/(70-93) Intake/Output Summary (Last 24 hours) at 02/03/2022 0530 Last data filed at 02/03/2022 0000 Gross per 24 hour Intake 3730.8 ml Output 2526 ml Net 1204.8 ml Body mass index is 34.95 kg/m??. PE: General: awake/alert, responds to questions. Somnolent but responsive. CV: RR assessed peripherally Resp: Breathing comfortably on RA LUE: VAC Holding suction with 700cc serosanguinous output overnight Sensation diminished to light touch in ax/r/m/u distributions. Fingers with slight flexion only. Wrist with slight flexion/extension 2/5. Brisk capillary refill distally, fingers warm/well-perfused. 2+ radial pulse LLE: Wound vac in place on lateral thigh. Black sponge observed. No appreciable bleeding or palpable fluctuance. Holding suction at -125 with 875cc serosanguinous output overnight. Lateral LLE fasciotomy Dressing c/d/i Sensory 1/2 in the saph, SP, DP, sural below the ankle, absent sensation in the leg/thigh Unable to dorsi or plantar- flex toes . 2/5 ankle plantarflexion, no dorsiflexion. Brisk capillary refill distally, foot warm/well-perfused. Palpable DP/PT pulses Lab Results Component Value Date NA 127 (L) 02/02/2022 K 5.2 (H) 02/02/2022 CL 97 (L) 02/02/2022 CO2 20 (L) 02/02/2022 BUN 63 (H) 02/02/2022 CREATININE 4.78 (H) 02/02/2022 GLUCOSE 107 02/02/2022 GLUCFASTING 151 (H) 04/26/2021 CALCIUM 6.8 (CRIT) 02/02/2022 Lab Results Component Value Date WBC 33.6 (CRIT) 02/02/2022 HGB 7.4 (L) 02/02/2022 HCT 20.9 (L) 02/02/2022 MCV 91.3 02/02/2022 PLATELET 278 02/02/2022 Lab Results Component Value Date INR 1.3 01/23/2022 ASSESSMENT / PLAN: Alix Holland is a 31 y.o. male 1 Day Post-Op s/p repeat irrigation and debridement of the left upper and lower extremity with wound VAC exchange. Doing well post-operatively. Plan for repeat I&D with possible closure vs need for coverage 02/04. NPO at midnight for OR . Activity: NWB LUE, NWB LLE DVT prophylaxis: Per primary Closure: Wound vacs (L volar forearm 1 white & 2 black, L thigh 2 black) Dressing: WVac as above to -125mmHg Antibiotics: continue ABx until fasciotomy sites closed Willie Dubon MD 02/03/2022 7001 No future appointments. Associated attestation - Sigifredo Garcia MD - 02/03/2022 4:52 PM EDT I discussed the patient and the plan for the patient's care with the primary author and reviewed thedata. I have reviewed and agree with the findings and the plan of care as outlined above. Sigifredo Garcia MD Department of Orthopaedics 02/03/22 Nahed Fraser MD - 02/02/2022 6:44 PM EDT ORTHOPAEDIC SURGERY INPATIENT PROGRESS NOTE Patient Name: Alix Holland Age: 31 y.o. Surgery/Issue: s/p resection of non-viable tissue L lateral leg wounds; s/p wound vac application Rolan volar forearm wound (1 white and 2 black sponges) and L thigh wound (2 black sponges). Attending: Dr. Starks Date of surgery: 02/02/2022 SUBJECTIVE / INTERVAL HISTORY: Pain well controlled. Patient denies chest pain, shortness of breath, nausea, vomiting. Pt wakefulness waxed and waned during the exam due to sedation. FOCUSED REVIEW OF SYSTEMS: as above. Active Hospital Problems Diagnosis ? ? SHAMAR ROBB compartment syndrome s/p fasciotimies, I&D 01/23/22, 01/26/22 (Dr. Garcia), I&D w/ partial closure 01/29/22 (Dr. Valdovinos), I&D 01/31/22 (Dr. Branch) ??? Transaminitis ??? Aspiration pneumonia ??? Rhabdomyolysis ??? Asymptomatic COVID-19 virus infection ??? Lactic acidosis ??? ALTHEA (acute kidney injury) ??? Continuous renal replacement therapy (CRRT) for acute renal failure ??? Cardiac arrest Resolved Hospital Problems No resolved problems to display. Active Non-Hospital Problems Diagnosis ??? Angioedema ??? Chest pain ??? Smoker ??? Mandible fracture MEDICATIONS: ??? HYDROmorphone (Dilaudid) tablet 2 mg ??? HYDROmorphone (Dilaudid) (1 mg/mL) in sodium chloride 0.9% 50 mL HAND STRIPER infusion ??? diphenhydrAMINE (Benadryl) (50 mg/mL) injection 25 mg ??? prochlorperazine (Compazine) (5 mg/mL) injection 5 mg ??? ondansetron (pf) (Zofran) (2 mg/mL) injection 4 mg ??? naloxone (Narcan) (0.4 mg/mL) injection 0.2 mg ??? HAND STRIPER hutton ??? HYDROmorphone (mg) HAND STRIPER shift total and Settings verification ??? fentaNYL (PF) (50 mcg/mL) injection 25 mcg ??? vancomycin (Vancocin) capsule 125 mg ??? ceFAZolin (Ancef) 1 g vial attached to sodium chloride 0.9% 50 mL Mini-Bag Plus ??? heparin (porcine) (1,000 units/mL) injection 1,000-10,000 Units ??? bicarbonate CRRT (NxSTAGE) 3 mEq/L K+, 3 mEq/L Ca++, 5,000 mL Solution 5 each ??? potassium phosphate (0.06 mmol/mL) in sodium chloride 0.9% continuous infusion (CRRT) ??? calcium gluconate 15 g in sodium chloride 0.9% 250 mL infusion ??? dronabinoL (Marinol) capsule 10 mg ??? dextrose 10% 1,000 mL with sodium chloride 154 mEq infusion ??? senna-docusate (Pericolace) 8.6-50 mg per tablet 2 tablet ??? folic acid (Folvite) tablet 1,000 mcg ??? thiamine (Vitamin B1) tablet 100 mg ??? acetaminophen (Tylenol) tablet 1,000 mg ??? lidocaine (Lidoderm) 5% patch 3 patch AND lidocaine (Lidoderm) topical patch REMOVAL ??? pantoprazole (Protonix) injection 40 mg ??? heparin (porcine) 50 units/mL in sodium chloride 0.45% 500 mL infusion ??? glucose (Glutose) 40% oral geL OR dextrose 10% infusion OR glucagon (Glucagen) (1 mg/mL)injection solution 1 mg ??? heparin (porcine) (5,000 units/1 mL) subcutaneous injection 5,000 Units ??? HYDROmorphone 0 mg/kg/hr (02/02/22 1331) ??? bicarbonate CRRT with 3 mEq/L K+, 3 mEq/L Ca++ 5 each (02/01/22 030) ??? potassium phos in 0.9% sodium chloride (CRRT) Stopped (01/30/22814) ??? calcium gluconate Stopped (02/01/22654) ??? Dextrose 10% with Custom Additives 100 mL/hr at 02/02/22 1558 ??? heparin (porcine) infusion Stopped (02/01/22654) OBJECTIVE: Temp: [36.5 ??C (97.7 ??F)-37 ??C (98.6 ??F)] Heart Rate: [95-124] Resp: [13-24] BP: (117-156)/(70-93) Intake/Output Summary (Last 24 hours) at 02/02/2022 1845 Last data filed at 02/02/2022 1800 Gross per 24 hour Intake 3335.5 ml Output 3106 ml Net 229.5 ml Body mass index is 34.95 kg/m??. PE: General: intermittently asleep and awake, responds to some questions appropriately CV: RRR assessed peripherally Resp: Breathing comfortably on RA LUE: Dressing c/d/i, Vac holding suction. Sensation intact to light touch in ax/r/m/u distributions Motor exam limited by pt mental status, able to flex at elbow and wrist but unable to move fingers Brisk capillary refill distally, fingers warm/well-perfused LLE: Dressing c/d/i, vac holding suction. Small <1cm x 1cm area of blood pooling at distal end of vac sponge. Sensory exam limited by mental status, endorsing sensation to medial thigh and medial knee and medial ankle, but not to lateral knee/ankle Motor exam limited by mental status Brisk capillary refill distally, foot warm/well-perfused Lab Results Component Value Date NA 127 (L) 02/02/2022 K 5.2 (H) 02/02/2022 CL 97 (L) 02/02/2022 CO2 20 (L) 02/02/2022 BUN 63 (H) 02/02/2022 CREATININE 4.78 (H) 02/02/2022 GLUCOSE 107 02/02/2022 GLUCFASTING 151 (H) 04/26/2021 CALCIUM 6.8 (CRIT) 02/02/2022 Lab Results Component Value Date WBC 33.6 (CRIT) 02/02/2022 HGB 7.4 (L) 02/02/2022 HCT 20.9 (L) 02/02/2022 MCV 91.3 02/02/2022 PLATELET 278 02/02/2022 Lab Results Component Value Date INR 1.3 01/23/2022 IMAGING: N/a ASSESSMENT / PLAN: Alix Holland is a 31 y.o. male Day of Surgery s/p s/p resection of non-viable tissue L lateral leg wounds; s/p wound vac application to L volar forearm wound and L thigh wound. Doing well post-operatively. Discharge pending further evaluation and care for fasciotomy sites. Activity: NWB CEZAR, NWB GLENE DVT prophylaxis: Per primary Closure: Wound vacs (L volar forearm 1 white & 2 black, L thigh 2 black) Dressing: WVac as above to -125mmHg Antibiotics: continue ABx until fasciotomy sites closed Nahed Fraser MD 02/02/2022 No future appointments. Dania Thomas MD - 02/02/2022 5:36 PM EDT NEPHROLOGY PROGRESS NOTE Reason for consult: ALTHEA/PRESS PULLER Baseline creatinine: ~0.7 (as of 04/2021) Interval History: Patient was not examined due to COVID-19+ status. Clinical and laboratory data reviewed. Stable treatment. No issues with dialysis or access. A/P: ALTHEA - Remains oligo-anuric. Next dialysis pending evidence of renal recovery. Anemia - Management at the discretion of the primary team. Metabolic labs - * Metabolic acidosis - Will see how this looks tomorrow. If still present, and if patient taking PO,can start sodium bicarbonate 1300mg PO BID. * Hypocalcemia - Corrected calcium at or slightly below goal. Could consider oral supplementation (e.g., calcium carbonate 1g TID), but will defer to ICU team. * Hyperphosphatemia - Again, if taking PO, would add sevelamer 800mg with meals. Dania Thomas MD Nephrology Pager: [phone] Luzmaria Saavedra RN - 02/02/2022 10:24 AM EDT C. difficile Infection (CDI) Consult Note Reason for Consult: Patient tested positive for C. difficile. Pertinent labs: PCR positive on 02/01/2022 Section of Infectious Disease Treatment Recommendations: For all inpatient cases of C. difficile [facility] Section of Infectious Disease recommends 125 mg of oral vancomycin QID for at least 14 days (10days beyond symptom resolution), even in cases of [id number] disease. For cases of severe C. difficile infection, please call an Infectious Disease consult and consider adding intravenous metronidazole in addition to oral vancomycin. If the patient is on broad- spectrum antibiotics for another indication, consider continuing oral vancomycin for 7 days after the other antibiotics are stopped. For questions regarding treatment please contact the Infectious Disease fellow regional director of finance at pager [phone]. Infection Prevention Recommendations: ? ? Isolation Recommendations- Patients with confirmed C. difficile must stay on Soap and Water (S&W) Contact Precautions (CP) until discharge, at which time their room can be terminally cleaned with bleach. Patients on S&W CP may only leave their room for medically necessary tests and procedures. Dedicated or disposable medical equipment is required. Any equipment leaving the patients room must be cleaned with bleach prior to being removed from the room. Everyone leaving the patient???s room should wash their hands with soap and water. o If an extended stay is anticipated, consult Infection Prevention (Pager [phone]) to discuss the process for discontinuing S&W CP on asymptomatic patients that have completed treatment for C. difficile. ??? Repeat Testing- Repeat stool testing for test of cure is NOT recommended and will not be performed even for external patient transfers. Positive C. difficile testing may persist despite a clinical response to treatment. o A negative C. diff test does NOT make a patient eligible for removal of S&W CP if they have a previously positive test. Applicable policies, guidelines: (42874) C. difficile Testing Policy (v.3) Soap & Water Contact Precautions and C. difficile Procedure Standard and Expanded Precautions Policy Precautions for Specific Diseases and Conditions - Job Aid For questions regarding treatment, please contact the Infectious Disease fellow regional director of finance at pager [phone]. For all other questions regarding C. difficile, please contact Infection Prevention at [phone] or pager [phone]. Thank you. Evangelina Flynn MD - 02/02/2022 10:23 AM EDT MICU STAFF PROGRESS NOTE Critical Care Medicine Author: Evangelina Flynn MD Patient seen and examined on critical care rounds and discussed with house staff. Interval Events: Diagnosed with C diff, started on po vanco Anemia slightly worse yesterday, PRBC tx, suspected from oozing HD session ongoing this morning Pain better controlled on HAND STRIPER Per dad slept well last night, more consistently alert and conversational today, when awake mental status is appropriate and normal Active problems: Rhabdo Compartment syndrome s/p fasciotomies of LUE, LLE Acute renal failure on HD MSSA vs aspiration pneumonia Cdiff colitis Incidental COVID19 infection Anemia Substance use disorder Ischemic strokes vs toxic metabolic brain findings Exam: Last value Range last 24 hrs Temperature Temp: 36.7 ??C (98.1 ??F) Temp: [36.5 ??C (97.7 ??F)-37 ??C (98.6 ??F)] Heart Rate Heart Rate: (!) 110 Heart Rate: [95-127] Blood Pressure BP: 118/70 BP: (118-169)/(70-108) Respiratory Rate Resp: 13 Resp: [13-24] SpO2 SpO2: 100 % SpO2: [99 %-100 %] Art BP BP (Arterial Line): 107/67 BP (Arterial Line): -- Exam notable for: Alert though drifts back to sleep when conversation pauses; appropriate and conversational MMM, neck supple, HD R IJ and CVC L IJ C/D/I RRR, no murmur Lungs clear Abd soft, +Bs, NT/ND Extremities warm, edematous, LUE wound vac along forearm, with decreased sensation in left hand and decreased volitional movement on LUE; LLE with wound vac anteriolateral thigh, smaller wound left lateral morrow Ventilator: NA on RA Current Drips: Dilaudid HAND STRIPER Labs/studies reviewed, notable for: WBC 33, downtrending Hgb 7.4 PLT 278 Na 127, stable K 5.2 BUN 63 C diff POSITIVE on 02/01/22 ASSESSMENT, MANAGEMENT, and DECISION MAKIN31 y/o man with substance use disorder admitted after being found down at home with hospital course notable for multiple cardiac arrests, rhabdo with compartment syndrome of LUE and LLE requiring fasciotomies still with open wounds, acute renal failure requiring ongoing dialysis, anemia (suspected 2/2 blood loss from open wounds), C diff colitis with leukocytosis now on treatment, pneumonia, and [id number] infection (known prior to admission.) Fortunately he is cognitively intact. Active management needs include ongoing pain control which is currently better on dilaudid HAND STRIPER, need for long-term management of substance use disorder, ongoing surgical management of open fasciotomies of arm and leg. Unclear if he will have renal recovery. PULM: no concerns CV: HD stable ID: continue on ancef for pneumonia/open wounds and po vanco for new C diff colitis; can come of covid19 precautions now (day 11.) RENAL: tolerated iHD this morning; needs ongoing fluid removal, appreciate nephrology following GI: po diet, 1.5 L fluid restriction per nephro HEME/ONC: anemia in setting of ICU blood losses/oozing from wounds; no acute bleeding this admission; dopplers to rule out DVTs ordered yesterday and pending NEURO: dilaudid HAND STRIPER for acute pain currently; long-term suboxone may be a good strategy; should re-address once surgical needs are resolved MSK: surgery following, intermittent debridements and wound vacs ongoing Father updated at bedside this morning Okay to transition to hospital medicine today IS PATIENT CRITICALLY ILL ? Is there a high potential of sudden, clinically significant, or life threatening deterioration? No Is there a need for direct personal assessment and management to treat/prevent multiple vital organfailure/deterioration? No If this patient is not critically ill, I certify the patient requires continued in-patient hospitalization for [Acute renal failure requiring dialysis, compartment syndrome, pneumonia, C diff colitis] PATIENT IS CRITICALLY ILL WITH THESE DIAGNOSES BEING MANAGED BY [facility] TEAM: I personally performed 40 minutes of aggregate care time exclusive of procedures and teaching. This includes time spent during direct patient evaluation and reassessment, interpreting diagnostic tests,directing life and/or organ supporting interventions and documentation on the unit. Evangelina Flynn MD David Pagan MD - 02/02/2022 5:02 AM EDT ORTHOPAEDIC SURGERY INPATIENT PROGRESS NOTE Patient Name: Alix Holland Age: 31 y.o. Surgery/Issue: LUE, LLE compartment syndrome s/p fasciotimies, I&D 01/23/22, 01/26/22 (Dr. Garcia), I&D w/ partial closure 01/29/22 (Dr. Valdovinos), I&D 01/31/22 (Dr. Branch) Attending: Dr. Sanz Date of surgery: 01/31/2022 SUBJECTIVE / INTERVAL HISTORY: AF, tachycardic to the 110s overnight. WBC 30.5 from 30.4 (43.9 early 7/4) Resting comfortably in MICU. Mental status improved, patient conversant. Hgb 7.0 after transfusing 1 unit for Hgb 6.4 yesterday, likely ABLA Started HAND STRIPER for pain control. Patient denies chest pain, shortness of breath, nausea, vomiting. Covid and c. Diff positive FOCUSED REVIEW OF SYSTEMS: as above. Active Hospital Problems Diagnosis ? ? LUE, GLENE compartment syndrome s/p fasciotimies, I&D 01/23/22, 01/26/22 (Dr. Garcia), I&D w/ partial closure 01/29/22 (Dr. Valdovinos), I&D 01/31/22 (Dr. Branch) ??? Transaminitis ??? Aspiration pneumonia ??? Rhabdomyolysis ??? Asymptomatic COVID-19 virus infection ??? Lactic acidosis ??? ALTHEA (acute kidney injury) ??? Continuous renal replacement therapy (CRRT) for acute renal failure ??? Cardiac arrest Resolved Hospital Problems No resolved problems to display. Active Non-Hospital Problems Diagnosis ??? Angioedema ??? Chest pain ??? Smoker ??? Mandible fracture MEDICATIONS: ??? HYDROmorphone (Dilaudid) tablet 2 mg ??? HYDROmorphone (Dilaudid) (1 mg/mL) in sodium chloride 0.9% 50 mL HAND STRIPER infusion ??? diphenhydrAMINE (Benadryl) (50 mg/mL) injection 25 mg ??? prochlorperazine (Compazine) (5 mg/mL) injection 5 mg ??? ondansetron (pf) (Zofran) (2 mg/mL) injection 4 mg ??? naloxone (Narcan) (0.4 mg/mL) injection 0.2 mg ??? HAND STRIPER hutton ??? HYDROmorphone (mg) HAND STRIPER shift total and Settings verification ??? fentaNYL (PF) (50 mcg/mL) injection 25 mcg ??? vancomycin (Vancocin) capsule 125 mg ??? ceFAZolin (Ancef) 1 g vial attached to sodium chloride 0.9% 50 mL Mini-Bag Plus ??? heparin (porcine) (1,000 units/mL) injection 1,000-10,000 Units ??? bicarbonate CRRT (NxSTAGE) 3 mEq/L K+, 3 mEq/L Ca++, 5,000 mL Solution 5 each ??? potassium phosphate (0.06 mmol/mL) in sodium chloride 0.9% continuous infusion (CRRT) ??? calcium gluconate 15 g in sodium chloride 0.9% 250 mL infusion ??? dronabinoL (Marinol) capsule 10 mg ??? dextrose 10% 1,000 mL with sodium chloride 154 mEq infusion ??? senna-docusate (Pericolace) 8.6-50 mg per tablet 2 tablet ??? folic acid (Folvite) tablet 1,000 mcg ??? thiamine (Vitamin B1) tablet 100 mg ??? acetaminophen (Tylenol) tablet 1,000 mg ??? polyethylene glycoL (Miralax) packet 17 g ??? lidocaine (Lidoderm) 5% patch 3 patch AND lidocaine (Lidoderm) topical patch REMOVAL ??? pantoprazole (Protonix) injection 40 mg ??? heparin (porcine) 50 units/mL in sodium chloride 0.45% 500 mL infusion ??? glucose (Glutose) 40% oral geL OR dextrose 10% infusion OR glucagon (Glucagen) (1 mg/mL)injection solution 1 mg ??? heparin (porcine) (5,000 units/1 mL) subcutaneous injection 5,000 Units ??? HYDROmorphone ??? bicarbonate CRRT with 3 mEq/L K+, 3 mEq/L Ca++ 5 each (02/01/22 0309) ??? potassium phos in 0.9% sodium chloride (CRRT) Stopped (01/30/22 08) ??? calcium gluconate Stopped (02/01/22654) ??? Dextrose 10% with Custom Additives 100 mL/hr at 02/01/22 2205 ??? heparin (porcine) infusion Stopped (02/01/22654) OBJECTIVE: Temp: [36.5 ??C (97.7 ??F)-37 ??C (98.6 ??F)] Heart Rate: [94-127] Resp: [14-30] BP: (141-174)/(76-108) Intake/Output Summary (Last 24 hours) at 02/02/2022 0502 Last data filed at 02/02/2022 0200 Gross per 24 hour Intake 4252 ml Output 2309 ml Net 1943 ml Body mass index is 34.32 kg/m??. PE: General: awake/alert, responds to questions. Somnolent but responsive. CV: RR assessed peripherally Resp: Breathing comfortably on RA LUE: Fasciotomy dressing c/d/i with very minimal blood seen through dressing Sensation diminished to light touch in ax/r/m/u distributions. Fingers with slight flexion only. Wrist with slight flexion/extension 2/5. Brisk capillary refill distally, fingers warm/well-perfused. 2+ radial pulse LLE: Wound vac in place on lateral thigh. Black sponge observed. No appreciable bleeding or palpable fluctuance. Holding suction at -125 Lateral LLE fasciotomy Dressing c/d/i with very minimal blood seen through dressing Sensory 1/2 in the saph, SP, DP, sural below the ankle, absent sensation in the leg/thigh Unable to dorsi or plantar- flex toes . 2/5 ankle plantarflexion, no dorsiflexion. Brisk capillary refill distally, foot warm/well-perfused. Palpable DP/PT pulses Lab Results Component Value Date NA 127 (L) 02/02/2022 K 5.2 (H) 02/02/2022 CL 97 (L) 02/02/2022 CO2 20 (L) 02/02/2022 BUN 63 (H) 02/02/2022 CREATININE 4.78 (H) 02/02/2022 GLUCOSE 107 02/02/2022 GLUCFASTING 151 (H) 04/26/2021 CALCIUM 6.8 (CRIT) 02/02/2022 Lab Results Component Value Date WBC 30.5 (CRIT) 02/02/2022 HGB 7.0 (L) 02/02/2022 HCT 20.6 (L) 02/02/2022 MCV 94.5 (H) 02/02/2022 PLATELET 245 02/02/2022 Lab Results Component Value Date INR 1.3 01/23/2022 ASSESSMENT / PLAN: Alix Holland is a 31 y.o. male 2 Days Post-Op s/p repeat irrigation and debridement of the left upper and lower extremity with wound VAC exchange. Doing well post-operatively. Planfor repeat I&D with possible closure 02/02. Please keep NPO. Activity: NWB LUE, NWB LLE DVT prophylaxis: Per primary Closure: Wound vacs (L forearm-1blk volar, 1blk dorsal L thigh-1blk, L leg-1blk) Dressing: WVac as above Antibiotics: continue ABx until fasciotomy sites closed David Pagan MD 02/02/2022 7001 No future appointments. Associated attestation - Sigifredo Garcia MD - 02/02/2022 1:46 PM EDT I discussed the patient and the plan for the patient's care with the primary author and reviewed thedata. I have reviewed and agree with the findings and the plan of care as outlined above. Sigifredo Garcia MD Department of Orthopaedics 02/02/22 Vidhya Peñaloza MD - 02/01/2022 11:48 AM EDT NEPHROLOGY PROGRESS NOTE PATIENT: Alix Holland : 1990 Interval History: Patient seen and examined at the bedside under COVID-19 precautions. Has waxing and waning mental status. On bed. Not on oxygen. No acute respiratory distress when seen. On AVVH. Had treatment done last night. Ran UF 100 ml/h in the night. The plan is to hold AVVH tonight and give a trial of gentle iHD in the morning. I/O last 3 completed shifts: In: 7492 [P.O.:2830; I.V.:4387; Other:60; IV Piggyback:215] Out: 7023 [Urine:52; Other:6921; Blood:50] I/O this shift: In: 528 [I.V.:528] Out: 308 [Urine:8; Other:300] Assessment and Plan: A 31 year old male with hx fentanyl ingestion, [place] cardiac arrest, severe rhabdomyolysis, compartment syndrome with ALTHEA, s/p left thigh fasciotomies, calf forearm and wrist, MSSA PNA, COVID -19 infection seen and examined. Has developed anuric renal failure and was on CVVH. Transitioned to AVVH and now will be transitioned to iHD. - Hold AVVH. - iHD in the morning. - Oral fluid restriction to 1.5 liter /day. - Has tendency for hyperkalemia - patient has had extensive tissue breakdown. 2K bath with HD. - Mild hyponatremia - sodium is 127 mmol/L. Patient should be on fluid restriction 1.5Liter/day. - Bicarbonate is 21. Monitor daily. If it is consistently below 22, may benefit from oral sodium bicarbonate. - Phosphorus is 4.9. - Calcium - 7.6. - Anemia - Hemoglobin is 7.7 g/dl. EPO with HD in a.m. Iron studies need to be done on the patient. - Will follow. PHYSICAL EXAM: Last value Temperature Temp: 36.7 ??C (98.1 ??F) Heart Rate Heart Rate: 95 Blood Pressure BP: 152/82 Respiratory Rate Resp: 18 SpO2 SpO2: 100 % General - Arousable. Waxing and waning mental status. HEENT - Atraumatic. Normocephalic. Neck - No JVD Respiratory - B/L CTA. Cardiovascular - S1S2N. No murmur. Extremities - LLE edema +. Psychiatric - Sleepy. Looks depressed. Neurological - No FND Current Facility-Administered Medications Medication Dose Route Frequency Provider Last Rate Last Admin ??? HYDROmorphone (Dilaudid) tablet 2 mg 2 mg Oral Q6H PRN Cate Josue PA 2 mg at 02/01/22 1136 ??? fentaNYL (PF) (50 mcg/mL) injection 25 mcg 25 mcg Intravenous Q1H PRN Agnieszka López APRN 25mcg at 02/01/22 0918 ??? heparin (porcine) (1,000 units/mL) injection 1,000-10,000 Units 1,000-10,000 Units [id number] PRN Dimas Hernandez MD 2,400 Units at 02/01/22 0700 ??? bicarbonate CRRT (NxSTAGE) 3 mEq/L K+, 3 mEq/L Ca++, 5,000 mL Solution 5 each 5 each CRRT Continuous Dimas Hernandez MD 4,000 mL/hr at 02/01/22 0309 5 each at 02/01/22 0309 ??? potassium phosphate (0.06 mmol/mL) in sodium chloride 0.9% continuous infusion (CRRT) 0-100 mL/hr Intravenous Continuous Dimas Hernandez MD Held at 01/30/22 0815 ??? calcium gluconate 15 g in sodium chloride 0.9% 250 mL infusion 5 mL/hr Intravenous Continuous Dimas Hernandez MD Stopped at 02/01/22 0655 ??? dronabinoL (Marinol) capsule 10 mg 10 mg Oral BID Dimas Hernandez MD 10 mg at 02/01/22 0915 ??? dextrose 10% 1,000 mL with sodium chloride 154 mEq infusion Intravenous Continuous Raza Hernandez MD 100 mL/hr at 01/31/22 2310 New Bag at 01/31/22 2310 ??? senna-docusate (Pericolace) 8.6-50 mg per tablet 2 tablet 2 tablet Oral BID Dimas Hernandez MD 2 tablet at 01/31/227 ??? folic acid (Folvite) tablet 1,000 mcg 1,000 mcg Oral Daily Dimas Hernandez MD 1,000 mcg at 02/01/22 0915 ??? thiamine (Vitamin B1) tablet 100 mg 100 mg Oral Daily Dimas Hernandez MD 100 mg at 02/01/22 0915 ??? ampicillin-sulbactam (Unasyn) 1.5 g vial attach to sodium chloride 0.9% 50 mL Mini-Bag Plus 1.5 g Intravenous Q8H Dimas Hernandez MD Stopped at 02/01/22 0841 ??? acetaminophen (Tylenol) tablet 1,000 mg 1,000 mg Oral Q8H Dimas Santos MD 1,000 mg at 02/01/22 0556 ??? polyethylene glycoL (Miralax) packet 17 g 17 g Oral Daily Dimas Hernandez MD 17 g at 01/29/22 0957 ??? lidocaine (Lidoderm) 5% patch 3 patch 3 patch Transdermal Q24H Dimas Hernandez MD 3 patch at 01/31/222 And ??? lidocaine (Lidoderm) topical patch REMOVAL 1 patch Transdermal Q24H Dimas Hernandez MD ??? pantoprazole (Protonix) injection 40 mg 40 mg Intravenous Daily Dimas Hernandez MD 40 mg at 02/01/22 0829 ??? naloxone (Narcan) (0.4 mg/mL) injection 0.4 mg 0.4 mg Intravenous Once PRN Dimas Hernandez MD ??? heparin (porcine) 50 units/mL in sodium chloride 0.45% 500 mL infusion 400 Units/hr Intravenous Continuous Dimas Hernandez MD Stopped at 02/01/22 0655 ??? glucose (Glutose) 40% oral geL 15-30 g of glucose Buccal Q30 Min PRN Dimas Hernandez MD Or ??? dextrose 10% infusion 250 mL Intravenous Q30 Min PRN Dimas Hernandez MD Stopped at 01/26/22 1031 Or ??? glucagon (Glucagen) (1 mg/mL) injection solution 1 mg 1 mg Intramuscular Q30 Min PRN Dimas Hernandez MD ??? heparin (porcine) (5,000 units/1 mL) subcutaneous injection 5,000 Units 5,000 Units [id number] Dimas Santos MD 5,000 Units at 02/01/22 0602 Recent Results (from the past 18 hour(s)) Calcium Ionized Whole Blood, HONORIO Collection Time: 01/31/22 7:36 PM Result Value Ref Range pH Honorio 7.44 (H) 7.32 - 7.42 ICa Whole Blood 0.98 (L) 1.15 - 1.33 mmol/L POCT Glucose Collection Time: 01/31/22 7:39 PM Result Value Ref Range POC Glucose 150 65 - 199 mg/dL Calcium Ionized Whole Blood, HONORIO Collection Time: 01/31/22 10:30 PM Result Value Ref Range pH Honorio 7.40 7.32 - 7.42 ICa Whole Blood 1.02 (L) 1.15 - 1.33 mmol/L Magnesium Collection Time: 02/01/22 1:02 AM Result Value Ref Range Magnesium 0.94 0.69 - 1.07 mmol/L Phosphorus Collection Time: 02/01/22 1:02 AM Result Value Ref Range Phosphorus 4.9 (H) 2.5 - 4.5 mg/dL Basic Metabolic Panel (non-fasting) Collection Time: 02/01/22 1:02 AM Result Value Ref Range Glucose Lvl 125 65 - 199 mg/dL BUN 50 (H) 10 - 20 mg/dL Creatinine 3.91 (H) 0.80 - 1.50 mg/dL Sodium 127 (L) 135 - 145 mmol/L Potassium 5.2 (H) 3.5 - 5.0 mmol/L Chloride 97 (L) 98 - 107 mmol/L CO2 21 (L) 22 - 31 mmol/L Anion Gap 9 5 - 15 mmol/L Calcium 7.6 (L) 8.5 - 10.5 mg/dL Estimated GFR 20 (L) >=60 mL/min/1.73 m?? Calcium Ionized Whole Blood, HONORIO Collection Time: 02/01/22 1:02 AM Result Value Ref Range pH Honorio 7.42 7.32 - 7.42 ICa Whole Blood 1.09 (L) 1.15 - 1.33 mmol/L Hemogram Collection Time: 02/01/22 1:02 AM Result Value Ref Range WBC 41.8 (CRIT) 4.0 - 9.5 x10(3)/mcL RBC 2.23 (L) 4.58 - 5.54 x10(6)/mcL Hemoglobin 7.2 (L) 13.7 - 16.5 g/dL Hematocrit 20.6 (L) 40.5 - 48.5 % MCV 92.4 82.9 - 93.1 fL MCH 32.3 (H) 27.5 - 32.1 pg MCHC 35.0 32.0 - 35.7 g/dL Platelets 252 145 - 357 x10(3)/mcL RDWSD 43.6 36.0 - 45.0 fL RDWCV 13.3 11.4 - 13.8 % MPV 10.8 7.6 - 12.9 fL nRBC % Auto 0.0 % nRBC Abs Auto 0.000 0.000 - 0.000 x10(3)/mcL Differential, Automated Collection Time: 02/01/22 1:02 AM Result Value Ref Range Neutrophils % 73.9 % Neutr Abs (ANC) 30.91 (H) 1.70 - 6.10 x10(3)/mcL Lymphocytes % 7.5 % Lymphocytes Abs 3.1 0.9 - 3.2 x10(3)/mcL Monocytes % 7.7 % Monocyte Abs 3.2 (H) 0.3 - 0.9 x10(3)/mcL Eosinophils % 0.5 % Eosinophils Abs 0.2 0.0 - 0.4 x10(3)/mcL Basophils % 0.4 % Basophils Abs 0.2 (H) 0.0 - 0.1 x10(3)/mcL Immature Gran % 10.00 % Gemini Gran Abs 4.18 (H) 0.00 - 0.04 x10(3)/mcL Calcium Ionized Whole Blood, HONORIO Collection Time: 02/01/22 4:00 AM Result Value Ref Range pH Honorio 7.43 (H) 7.32 - 7.42 ICa Whole Blood 1.13 (L) 1.15 - 1.33 mmol/L Hemogram Collection Time: 02/01/22 4:00 AM Result Value Ref Range WBC 43.9 (CRIT) 4.0 - 9.5 x10(3)/mcL RBC 2.20 (L) 4.58 - 5.54 x10(6)/mcL Hemoglobin 7.1 (L) 13.7 - 16.5 g/dL Hematocrit 20.3 (L) 40.5 - 48.5 % MCV 92.3 82.9 - 93.1 fL MCH 32.3 (H) 27.5 - 32.1 pg MCHC 35.0 32.0 - 35.7 g/dL Platelets 264 145 - 357 x10(3)/mcL RDWSD 43.8 36.0 - 45.0 fL RDWCV 13.2 11.4 - 13.8 % MPV 10.7 7.6 - 12.9 fL nRBC % Auto 0.0 % nRBC Abs Auto 0.000 0.000 - 0.000 x10(3)/mcL POCT Glucose Collection Time: 02/01/22 10:42 AM Result Value Ref Range POC Glucose 119 65 - 199 mg/dL Vidhya Peñaloza #[id number] Associated attestation - Jareth Nino MD - 02/01/2022 12:40 PM EDT I saw and discussed the patient with the fellow and agree with assessment plan in her note. And uricAKI in setting of rhabdomyolysis. We will plan trial of intermittent dialysis tomorrow as intake andvital signs are acceptable. Patient does not need to run shift therapy overnight Beck Sanz MD - 02/01/2022 9:11 AM EDT [facility] [place] SECTION OF PULMONARY & CRITICAL CARE MEDICINE Patient seen and examined, and data reviewed, on critical care rounds. Events in Last 24 Hours: Back to OR yesterday - couldn't close all sites and next washout/closure planned for 02/02. Review of Systems: A 12 point ROS was negative aside from as listed in the HPI. Objective: Last value Range last 24 hrs Temperature Temp: 37.2 ??C (99 ??F) Temp: [36.6 ??C (97.9 ??F)-37.2 ??C (99 ??F)] Heart Rate Heart Rate: (!) 114 Heart Rate: [85-114] Blood Pressure BP: 174/85 BP: (83-185)/(49-102) Respiratory Rate Resp: 21 Resp: [19-26] SpO2 SpO2: 100 % SpO2: [100 %] Admit Weight 101.8 kg General: Awake Pulmonary/Chest: Bilateral breath sounds Cardiovascular: nl s1/s2, RRR Abdomen: soft, non-tender Extremities: Wound vacs to suction Psychiatric: n/a Neurologic: RASS 0, following commands Diagnostics: 01/30/22 CT C/A/P: 1. A 7.5 x 2.7 cm hypodense lesion in the left gluteus medius with subtle rim enhancement, likely represents postoperative changes status post excisional debridement of the left gluteus medius. However, an abscess cannot be excluded. Recommend attention on follow-up. 2. Diffuse anasarca. 3. Hepatomegaly. Ventilator: N/A Assessment: Alix Holland is a 31 y.o. gentleman admitted to the MICU on 01/23/22 after being found down and encephalopathic by family with verbal reports of Fentanyl ingestion; this was followed by witnessed in-hospital [place] cardiac arrest at the receiving ED (hyperkalemia at the time). He was also noted to have severe rhabdomyolysis with compartment syndrome and resultant ALTHEA. Now POD#8 fasciotomies of L thigh, calf forearm and wrist with several OR returns since then for washouts, debridements, closures and vac exchanges. Previously completed treatment for MSSA pneumonia. Was found to have asymptomatic COVID-19 infection upon admission. Scattered punctate infarcts on MR brain and CT COW/carotids from 01/24/22normal. Neurology believes MRI findings are related to toxometabolic issues rather than a stroke. Remains extubated upon his returns from the OR. Complex pain needs however his requirements have greatly improved and he is now off gtts and standing agents. He continues to have an up-trending leukocytosis that is perplexing/not clear as to what is driving it. Aside from this he is stable/unchanged on exam and afebrile. An extensive ID w/u has been unrevealing including mercado-CT imaging performed 01/30. This did demonstrate a 7.5 x 2.7 cm hypodense lesion in the left gluteus medius with subtle rim enhancement, - this was washed out in OR on 01/30 anyway by ortho without concern for acute infection. His Ancef was empirically switched back to Unasyn on 01/29 but it's not clear this has helped nor clear what we're treating. He otherwise requires prophylactic antibiotics (ie Ancef) until fasciotomy closures. No peripheral eosinophilia or rashes. Will convert his antibiotics back to Ancef and continue to monitor. Duplexes were ordered but remain pending for Tuesday. To continue shift therapy this withplan to convert to iHD hopefully tomorrow so he can leave the ICU. Plan: ?? As above IS PATIENT CRITICALLY ILL? Is there a high potential of sudden, clinically significant, or life threatening deterioration? Yes Is there a need for direct personal assessment and management to treat/prevent multiple vital organfailure/deterioration? Yes If this patient is not critically ill, I certify the patient requires continued in-patient hospitalization for [] PATIENT IS CRITICALLY ILL WITH THESE DIAGNOSES BEING MANAGED BY [facility]CS TEAM: ??? Acute toxic/metabolic encephalopathy ??? Rhabdomyolysis ??? Compartment syndrome ??? Acute hypoxemic respiratory failure ??? Aspiration pneumonia ??? Normocytic anemia ??? Thrombocytopenia ??? Hyponatremia ??? Leukocytosis ??? Transaminitis ??? Protein calorie malnutrition ??? Hypoglycemia I personally performed 30 minutes of aggregate critical care time exclusive of procedures and teaching. This includes time spent during direct patient evaluation and reassessment, interpreting diagnostic tests, directing life and/or organ supporting interventions and documentation on the unit. Beck Sanz MD, 02/01/2022, 9:11 AM Interventional Pulmonology Section of Pulmonary & Critical Care Pager: [phone] ArmandoDoc MD - 02/01/2022 6:45 AM EDT ORTHOPAEDIC SURGERY INPATIENT PROGRESS NOTE Patient Name: Alix Holland Age: 31 y.o. Surgery/Issue: SHAMAR ROBB compartment syndrome s/p fasciotimies, I&D 01/23/22, 01/26/22 (Dr. Garcia), I&D w/ partial closure 01/29/22 (Dr. Valdovinos), I&D 01/31/22 (Dr. Branch) Attending: Dr. Sanz Date of surgery: 01/31/2022 SUBJECTIVE / INTERVAL HISTORY: Resting comfortably in MICU. Mental status improved, patient conversant. Hgb 7.1 (9.1), likely primarily due to hemodilution. Pain moderately well-controlled, states is at 5/10 but not in distress or major discomfort. Patient denies chest pain, shortness of breath, nausea, vomiting. FOCUSED REVIEW OF SYSTEMS: as above. Active Hospital Problems Diagnosis ? ? SHAMAR ROBB compartment syndrome s/p fasciotimies, I&D 01/23/22, 01/26/22 (Dr. Garcia), I&D w/ partial closure 01/29/22 (Dr. Valdovinos), I&D 01/31/22 (Dr. Branch) ??? Transaminitis ??? Aspiration pneumonia ??? Rhabdomyolysis ??? Asymptomatic COVID-19 virus infection ??? Lactic acidosis ??? ALTHEA (acute kidney injury) ??? Continuous renal replacement therapy (CRRT) for acute renal failure ??? Cardiac arrest Resolved Hospital Problems No resolved problems to display. Active Non-Hospital Problems Diagnosis ??? Angioedema ??? Chest pain ??? Smoker ??? Mandible fracture MEDICATIONS: ??? HYDROmorphone (Dilaudid) tablet 2 mg ??? fentaNYL (PF) (50 mcg/mL) injection 25 mcg ??? heparin (porcine) (1,000 units/mL) injection 1,000-10,000 Units ??? bicarbonate CRRT (NxSTAGE) 3 mEq/L K+, 3 mEq/L Ca++, 5,000 mL Solution 5 each ??? potassium phosphate (0.06 mmol/mL) in sodium chloride 0.9% continuous infusion (CRRT) ??? calcium gluconate 15 g in sodium chloride 0.9% 250 mL infusion ??? dronabinoL (Marinol) capsule 10 mg ??? dextrose 10% 1,000 mL with sodium chloride 154 mEq infusion ??? senna-docusate (Pericolace) 8.6-50 mg per tablet 2 tablet ??? folic acid (Folvite) tablet 1,000 mcg ??? thiamine (Vitamin B1) tablet 100 mg ??? ampicillin-sulbactam (Unasyn) 1.5 g vial attach to sodium chloride 0.9% 50 mL Mini-Bag Plus ??? acetaminophen (Tylenol) tablet 1,000 mg ??? polyethylene glycoL (Miralax) packet 17 g ??? lidocaine (Lidoderm) 5% patch 3 patch AND lidocaine (Lidoderm) topical patch REMOVAL ??? pantoprazole (Protonix) injection 40 mg ??? naloxone (Narcan) (0.4 mg/mL) injection 0.4 mg ??? heparin (porcine) 50 units/mL in sodium chloride 0.45% 500 mL infusion ??? glucose (Glutose) 40% oral geL OR dextrose 10% infusion OR glucagon (Glucagen) (1 mg/mL)injection solution 1 mg ??? heparin (porcine) (5,000 units/1 mL) subcutaneous injection 5,000 Units ??? bicarbonate CRRT with 3 mEq/L K+, 3 mEq/L Ca++ 5 each (02/01/22 0309) ??? potassium phos in 0.9% sodium chloride (CRRT) Stopped (01/30/22 08) ??? calcium gluconate 15 mL/hr (02/01/22 0128) ??? Dextrose 10% with Custom Additives 100 mL/hr at 01/31/22 2310 ??? heparin (porcine) infusion 400 Units/hr (01/31/222038) OBJECTIVE: Temp: [36.6 ??C (97.9 ??F)-37.2 ??C (99 ??F)] Heart Rate: [85-114] Resp: [19-26] BP: (83-185)/(49-102) Intake/Output Summary (Last 24 hours) at 02/01/2022 0646 Last data filed at 02/01/2022 0600 Gross per 24 hour Intake 4885 ml Output 4482 ml Net 403 ml Body mass index is 34.32 kg/m??. PE: General: awake/alert, responds to questions. Somnolent but responsive. CV: RR assessed peripherally Resp: Breathing comfortably on RA LUE: Fasciotomy dressing c/d/i with very minimal blood seen through dressing Sensation diminished to light touch in ax/r/m/u distributions. Thumb with moderately better sensation. Thumb can move slightly, otherwise fingers unable to move. Brisk capillary refill distally, fingers warm/well-perfused. Audible pulses on doppler LLE: Wound vac in place on lateral thigh. Black sponge observed. No appreciable bleeding or palpable fluctuance. Holding suction at -125 Lateral LLE fasciotomy Dressing c/d/i with very minimal blood seen through dressing Sensory intact to light touch to the forefoot/ DP distribution, partially diminished to the saphenous distribution of the lower leg and intact in the femoral distribution Unable to dorsi or plantar- flex toes Brisk capillary refill distally, foot warm/well-perfused. Audible pulses on doppler Lab Results Component Value Date NA 127 (L) 02/01/2022 K 5.2 (H) 02/01/2022 CL 97 (L) 02/01/2022 CO2 21 (L) 02/01/2022 BUN 50 (H) 02/01/2022 CREATININE 3.91 (H) 02/01/2022 GLUCOSE 125 02/01/2022 GLUCFASTING 151 (H) 04/26/2021 CALCIUM 7.6 (L) 02/01/2022 Lab Results Component Value Date WBC 43.9 (CRIT) 02/01/2022 HGB 7.1 (L) 02/01/2022 HCT 20.3 (L) 02/01/2022 MCV 92.3 02/01/2022 PLATELET 264 02/01/2022 Lab Results Component Value Date INR 1.3 01/23/2022 ASSESSMENT / PLAN: Alix Holland is a 31 y.o. male 1 Day Post-Op s/p repeat irrigation and debridement of the left upper and lower extremity with wound VAC exchange. Doing well post-operatively. Plan for repeat I&D with possible closure 02/02. Please keep NPO. Activity: NWB LUE, NWB LLE DVT prophylaxis: Per primary Closure: Wound vacs (L forearm-1blk volar, 1blk dorsal L thigh-1blk, L leg-1blk) Dressing: WVac as above Antibiotics: continue ABx until fasciotomy sites closed Doc Roberts MD 02/01/2022 7001 No future appointments. Dilia Ferrara RN - 01/31/2022 8:35 PM EDTSummarcialy: TELEMETRY STRIP Images from the original note were not included. win Barber MD - 01/31/2022 3:27 PM EDT ORTHOPAEDIC SURGERY INPATIENT PROGRESS NOTE Patient Name: Alix Holland Age: 31 y.o. Surgery/Issue: DEBRIDEMENT SKIN, SUBCU, MUSCLE, BONE, LOWER EXTREMITY (WRVU 4.1) (Left) MODIFIER WOUND VAC (N/A) DEBRIDEMENT SKIN, SUBCU, MUSCLE, BONE UPPER EXTREMITY (WRVU 4.1) (Left) Attending: Dr. Sanz Date of surgery: 01/31/2022 SUBJECTIVE / INTERVAL HISTORY: Pain moderately well-controlled, states is at 5/10 but not in distress or major discomfort. Patient denies chest pain, shortness of breath, nausea, vomiting. FOCUSED REVIEW OF SYSTEMS: as above. Active Hospital Problems Diagnosis ? ? LUESHAMAR compartment syndrome s/p fasciotimies, I+D 01/23/22, 01/26/22 (Dr. Garcia), I&D w/ partial closure 01/29/22 (Dr. Valdovinos) ??? Transaminitis ??? Aspiration pneumonia ??? Rhabdomyolysis ??? Asymptomatic COVID-19 virus infection ??? Lactic acidosis ??? ALTHEA (acute kidney injury) ??? Continuous renal replacement therapy (CRRT) for acute renal failure ??? Cardiac arrest Resolved Hospital Problems No resolved problems to display. Active Non-Hospital Problems Diagnosis ??? Angioedema ??? Chest pain ??? Smoker ??? Mandible fracture MEDICATIONS: ??? fentaNYL (PF) (50 mcg/mL) injection 25 mcg ??? HYDROmorphone (Dilaudid) tablet 1 mg ??? heparin (porcine) (1,000 units/mL) injection 1,000-10,000 Units ??? bicarbonate CRRT (NxSTAGE) 3 mEq/L K+, 3 mEq/L Ca++, 5,000 mL Solution 5 each ??? potassium phosphate (0.06 mmol/mL) in sodium chloride 0.9% continuous infusion (CRRT) ??? calcium gluconate 15 g in sodium chloride 0.9% 250 mL infusion ??? dronabinoL (Marinol) capsule 10 mg ??? dextrose 10% 1,000 mL with sodium chloride 154 mEq infusion ??? senna-docusate (Pericolace) 8.6-50 mg per tablet 2 tablet ??? folic acid (Folvite) tablet 1,000 mcg ??? thiamine (Vitamin B1) tablet 100 mg ??? ampicillin-sulbactam (Unasyn) 1.5 g vial attach to sodium chloride 0.9% 50 mL Mini-Bag Plus ??? acetaminophen (Tylenol) tablet 1,000 mg ??? polyethylene glycoL (Miralax) packet 17 g ??? lidocaine (Lidoderm) 5% patch 3 patch AND lidocaine (Lidoderm) topical patch REMOVAL ??? pantoprazole (Protonix) injection 40 mg ??? naloxone (Narcan) (0.4 mg/mL) injection 0.4 mg ??? heparin (porcine) 50 units/mL in sodium chloride 0.45% 500 mL infusion ??? glucose (Glutose) 40% oral geL OR dextrose 10% infusion OR glucagon (Glucagen) (1 mg/mL)injection solution 1 mg ??? heparin (porcine) (5,000 units/1 mL) subcutaneous injection 5,000 Units ??? bicarbonate CRRT with 3 mEq/L K+, 3 mEq/L Ca++ 5 each (01/31/22 004) ??? potassium phos in 0.9% sodium chloride (CRRT) Stopped (01/30/22 0815) ??? calcium gluconate Stopped (01/31/22 06) ??? Dextrose 10% with Custom Additives 100 mL/hr at 01/31/22 1400 ??? heparin (porcine) infusion 400 Units/hr (01/30/221999) OBJECTIVE: Temp: [36.6 ??C (97.9 ??F)-37 ??C (98.6 ??F)] Heart Rate: [91-125] Resp: [18-35] BP: (132-185)/(50-102) Intake/Output Summary (Last 24 hours) at 01/31/2022 1527 Last data filed at 01/31/2022 1400 Gross per 24 hour Intake 5271 ml Output 3617 ml Net 1654 ml Body mass index is 34.24 kg/m??. PE: General: awake/alert, responds to questions. Somnolent but responsive. CV: RR assessed peripherally Resp: Breathing comfortably on RA LUE: Fasciotomy Dressing c/d/i with very minimal blood seen through dressing Sensation diminished to light touch in ax/r/m/u distributions. Thumb with moderately better sensation. Thumb can move slightly, otherwise fingers unable to move. Brisk capillary refill distally, fingers warm/well-perfused. Audible pulses on doppler LLE: Wound vac in place on lateral thigh. Black sponge observed. No appreciable bleeding or palpable fluctuance. Holding suction at -125 Lateral LLE fasciotomy Dressing c/d/i with very minimal blood seen through dressing Sensory intact to light touch to the forefoot/ DP distribution, partially diminished to the saphenous distribution of the lower leg and intact in the femoral distribution Unable to dorsi or plantar- flex toes Brisk capillary refill distally, foot warm/well-perfused. Audible pulses on doppler Lab Results Component Value Date NA 126 (L) 01/31/2022 K 5.1 (H) 01/31/2022 CL 94 (L) 01/31/2022 CO2 22 01/31/2022 BUN 50 (H) 01/31/2022 CREATININE 4.01 (H) 01/31/2022 GLUCOSE 146 01/30/2022 GLUCFASTING 151 (H) 04/26/2021 CALCIUM 7.5 (L) 01/30/2022 Lab Results Component Value Date WBC 35.8 (CRIT) 01/31/2022 HGB 9.1 (L) 01/31/2022 HCT 25.9 (L) 01/31/2022 MCV 91.2 01/31/2022 PLATELET 195 01/31/2022 Lab Results Component Value Date INR 1.3 01/23/2022 ASSESSMENT / PLAN: Alix Holland is a 31 y.o. male Day of Surgery s/p repeat irrigation and debridement of the left upper and lower extremity with wound VAC exchange. Doing well post-operatively. Activity: NWB LIZE, NWB LLE DVT prophylaxis: Per primary Closure: Wound vacs (L forearm-1blk volar, 1blk dorsal L thigh-1blk, L leg-1blk) Dressing: WVac as above Antibiotics: continue ABx until fasciotomy sites closed Twin Lacey MD 01/31/2022 7001 No future appointments. Vidhya Peñaloza MD - 01/31/2022 12:54 PM EDT NEPHROLOGY PROGRESS NOTE PATIENT: Alix Holland : 1990 Interval History: Patient was off the unit for OR debridement. He was seen initially early in the morning. Sitting up comfortably on bed. Not on oxygen. On COVID precautions. I/O last 3 completed shifts: In: 8249.5 [P.O.:3580; I.V.:4489.5; Other:120; IV Piggyback:60] Out: 6676 [Urine:70; Other:6606] I/O this shift: In: 938 [I.V.:938] Out: 855 [Urine:5; Other:800; Blood:50] Had a contrast CT done yesterday. IMPRESSION ?? 1. A 7.5 x 2.7 cm hypodense lesion in the left gluteus medius with subtle rim enhancement, likely represents postoperative changes status post excisional debridement of the left gluteus medius. However, an abscess cannot be excluded. Recommend attention on follow-up. 2. Diffuse anasarca. 3. Hepatomegaly. Patient had about 2500 ml of oral intake yesterday. Assessment and Plan: A 31 year old male with hx fentanyl ingestion, [place] cardiac arrest, severe rhabdomyolysis, compartment syndrome with ALTHEA, s/p left thigh fasciotomies, calf forearm and wrist, MSSA PNA, COVID -19 infection seen and examined. - He is on shift therapy for now. AVVH. Continue with shift therapy. - Lower the oral intake. His documented oral intake yesterday is about 2500 ml out of which 1 liter is contrast. - Patient does not have urine output. So his oral intake should be lower. - Would recommend fluid restriction to 1.5 liter/day for now. - Mild hyponatremia sec to volume overload. Suggest fluid restriction as above. - Chemistries reviewed. Will follow along. PHYSICAL EXAM: Last value Temperature Temp: 36.8 ??C (98.2 ??F) Heart Rate Heart Rate: 97 Blood Pressure BP: 182/89 Respiratory Rate Resp: 23 SpO2 SpO2: 100 % Current Facility-Administered Medications Medication Dose Route Frequency Provider Last Rate Last Admin ??? fentaNYL (PF) (50 mcg/mL) injection 25 mcg 25 mcg Intravenous Q1H PRN Agnieszka López APRN 25mcg at 01/31/22 1250 ??? heparin (porcine) (1,000 units/mL) injection 1,000-10,000 Units 1,000-10,000 Units [id number] PRN Dimas Hernandez MD ??? bicarbonate CRRT (NxSTAGE) 3 mEq/L K+, 3 mEq/L Ca++, 5,000 mL Solution 5 each 5 each CRRT Continuous Dimas Hernandez MD 4,000 mL/hr at 01/31/22 0047 5 each at 01/31/22 0047 ??? potassium phosphate (0.06 mmol/mL) in sodium chloride 0.9% continuous infusion (CRRT) 0-100 mL/hr Intravenous Continuous Dimas Hernandez MD Held at 01/30/22 0815 ??? calcium gluconate 15 g in sodium chloride 0.9% 250 mL infusion 5 mL/hr Intravenous Continuous Dimas Hernandez MD Stopped at 01/31/22 0626 ??? dronabinoL (Marinol) capsule 10 mg 10 mg Oral BID Dimas Hernandez MD 10 mg at 01/31/22 0814 ??? HYDROmorphone (Dilaudid) tablet 2 mg 2 mg Oral Q6H PRN Dimas Hernandez MD 2 mg at 01/31/22 0615 ??? dextrose 10% 1,000 mL with sodium chloride 154 mEq infusion Intravenous Continuous Raza Hernandez MD 100 mL/hr at 01/31/22 1253 New Bag at 01/31/22 1253 ??? senna-docusate (Pericolace) 8.6-50 mg per tablet 2 tablet 2 tablet Oral BID Dimas Hernandez MD ??? folic acid (Folvite) tablet 1,000 mcg 1,000 mcg Oral Daily Dimas Hernandez MD 1,000 mcg at 01/31/22 0814 ??? thiamine (Vitamin B1) tablet 100 mg 100 mg Oral Daily Dimas Hernandez MD 100 mg at 01/31/22 0814 ??? ampicillin-sulbactam (Unasyn) 1.5 g vial attach to sodium chloride 0.9% 50 mL Mini-Bag Plus 1.5 g Intravenous Q8H Dimas Hernandez MD Stopped at 01/31/22 0837 ??? acetaminophen (Tylenol) tablet 1,000 mg 1,000 mg Oral Q8H [facility] Dimas Hernandez MD 1,000 mg at 01/31/22 0535 ??? polyethylene glycoL (Miralax) packet 17 g 17 g Oral Daily Dimas Hernandez MD 17 g at 01/29/22 0957 ??? lidocaine (Lidoderm) 5% patch 3 patch 3 patch Transdermal Q24H Dimas Hernandez MD 3 patch at 01/31/22 0029 And ??? lidocaine (Lidoderm) topical patch REMOVAL 1 patch Transdermal Q24H Dimas Hernandez MD ??? pantoprazole (Protonix) injection 40 mg 40 mg Intravenous Daily Dimas Hernandez MD 40 mg at 01/31/22 0816 ??? naloxone (Narcan) (0.4 mg/mL) injection 0.4 mg 0.4 mg Intravenous Once PRN Dimas Hernandez MD ??? heparin (porcine) 50 units/mL in sodium chloride 0.45% 500 mL infusion 400 Units/hr Intravenous Continuous Dimas Hernandez MD 8 mL/hr at 01/30/221999 400 Units/hr at 01/30/221999 ??? glucose (Glutose) 40% oral geL 15-30 g of glucose Buccal Q30 Min PRN Dimas Hernandez MD Or ??? dextrose 10% infusion 250 mL Intravenous Q30 Min PRN Dimas Hernandez MD Stopped at 01/26/22 1031 Or ??? glucagon (Glucagen) (1 mg/mL) injection solution 1 mg 1 mg Intramuscular Q30 Min PRN Dimas Hernandez MD ??? heparin (porcine) (5,000 units/1 mL) subcutaneous injection 5,000 Units 5,000 Units [id number] Dimas Santos MD 5,000 Units at 01/31/22 0535 Facility-Administered Medications Ordered in Other Encounters Medication Dose Route Frequency Provider Last Rate Last Admin ??? fentaNYL (pf) (50 mcg/mL) multi-dose injection Intravenous PRLen Mccall MD 50 mcg at 01/31/22 1044 ??? propofoL (Diprivan) 10 mg/mL bolus injection (Anesthesia) Intravenous PRN Len Herrera MD 200 mg at 01/31/22 1041 ??? PHENYLephrine in NS (PF) (RUSTAM-SYNEPHRINE) 0.8 mg/10 mL (80 mcg/mL) multi- dose injection Syrg Intravenous PRN Len Herrera MD 80 mcg at 01/31/22 1041 ??? propofoL (Diprivan) (10 mg/mL) infusion Intravenous Continuous PRN Len Herrera MD 34.35 mL/hr at 01/31/22 1057 50 mcg/kg/min at 01/31/22 1057 ??? dexAMETHasone (Decadron) injection Intravenous PRN Len Herrera MD 8 mg at 01/31/22 1058 ??? dexmedeTOMIDine (Precedex) (4 mcg/mL) bolus injection (Anesthsia) Intravenous PRLen Mccall MD 4 mcg at 01/31/22 1154 ??? ondansetron (pf) (Zofran) (2 mg/mL) injection Intravenous PRLen Mccall MD 8 mg at 01/31/22 1148 ??? lactated ringers infusion Intravenous Continuous PRLen Mccall MD New Bag at 01/31/22 1147 Recent Results (from the past 18 hour(s)) POCT Glucose Collection Time: 01/30/22 8:00 PM Result Value Ref Range POC Glucose 144 65 - 199 mg/dL APTT Collection Time: 01/30/22 8:17 PM Result Value Ref Range PTT 30 25 - 37 sec Calcium Ionized Whole Blood, HONORIO Collection Time: 01/30/22 8:17 PM Result Value Ref Range pH Honorio 7.42 7.32 - 7.42 ICa Whole Blood 0.99 (L) 1.15 - 1.33 mmol/L Electrolytes panel Collection Time: 01/31/22 12:42 AM Result Value Ref Range Sodium 123 (L) 135 - 145 mmol/L Potassium 5.1 (H) 3.5 - 5.0 mmol/L Chloride 94 (L) 98 - 107 mmol/L CO2 21 (L) 22 - 31 mmol/L Anion Gap 8 5 - 15 mmol/L BUN Collection Time: 01/31/22 12:42 AM Result Value Ref Range BUN 50 (H) 10 - 20 mg/dL Creatinine Collection Time: 01/31/22 12:42 AM Result Value Ref Range Creatinine 4.01 (H) 0.80 - 1.50 mg/dL Estimated GFR 20 (L) >=60 mL/min/1.73 m?? Hemogram Collection Time: 01/31/22 12:42 AM Result Value Ref Range WBC 35.8 (CRIT) 4.0 - 9.5 x10(3)/mcL RBC 2.84 (L) 4.58 - 5.54 x10(6)/mcL Hemoglobin 9.1 (L) 13.7 - 16.5 g/dL Hematocrit 25.9 (L) 40.5 - 48.5 % MCV 91.2 82.9 - 93.1 fL MCH 32.0 27.5 - 32.1 pg MCHC 35.1 32.0 - 35.7 g/dL Platelets 195 145 - 357 x10(3)/mcL RDWSD 42.7 36.0 - 45.0 fL RDWCV 13.2 11.4 - 13.8 % MPV 10.6 7.6 - 12.9 fL nRBC % Auto 0.0 % nRBC Abs Auto 0.000 0.000 - 0.000 x10(3)/mcL Differential, Automated Collection Time: 01/31/22 12:42 AM Result Value Ref Range Neutrophils % 65.8 % Neutr Abs (ANC) 23.59 (H) 1.70 - 6.10 x10(3)/mcL Lymphocytes % 8.0 % Lymphocytes Abs 2.9 0.9 - 3.2 x10(3)/mcL Monocytes % 9.6 % Monocyte Abs 3.4 (H) 0.3 - 0.9 x10(3)/mcL Eosinophils % 0.9 % Eosinophils Abs 0.3 0.0 - 0.4 x10(3)/mcL Basophils % 0.5 % Basophils Abs 0.2 (H) 0.0 - 0.1 x10(3)/mcL Immature Gran % 15.20 % Gemini Gran Abs 5.46 (H) 0.00 - 0.04 x10(3)/mcL BLOOD GAS 2 VENOUS Collection Time: 01/31/22 12:43 AM Result Value Ref Range pH Honorio 7.44 (H) 7.32 - 7.42 pCO2 Honorio 30 (L) 41 - 51 mmHg pO2 Honorio 34 25 - 40 mmHg HCO3 Honorio 20.2 mmol/L BE Honorio -4.0 mmol/L Hgb Blood Gas 10.1 (L) 13.7 - 16.5 g/dL O2HB Honorio 69.5 % COHB Honorio 0.1 % METHB Honorio 0.3 <=1.5 % Na Whole Blood 120 (L) 135 - 145 mmol/L K Whole Blood 4.9 3.5 - 5.0 mmol/L ICa Whole Blood 1.05 (L) 1.15 - 1.33 mmol/L CL Whole Blood 95 (L) 98 - 107 mmol/L Gluc Whole Bld 110 65 - 199 mg/dL Lactate WB 1.0 0.5 - 2.2 mmol/L BGas Source Venous POCT Glucose Collection Time: 01/31/22 4:16 AM Result Value Ref Range POC Glucose 94 65 - 199 mg/dL Electrolytes panel Collection Time: 01/31/22 6:10 AM Result Value Ref Range Sodium 126 (L) 135 - 145 mmol/L Potassium 5.1 (H) 3.5 - 5.0 mmol/L Chloride 94 (L) 98 - 107 mmol/L CO2 22 22 - 31 mmol/L Anion Gap 10 5 - 15 mmol/L APTT Collection Time: 01/31/22 8:05 AM Result Value Ref Range PTT 36 25 - 37 sec POCT Glucose Collection Time: 01/31/22 10:03 AM Result Value Ref Range POC Glucose 108 65 - 199 mg/dL Vidhya Kaur #[id number] Associated attestation - Jareth Nino MD - 01/31/2022 3:58 PM EDT I discussed the patient with the fellow and he is off the floor in the operating room during my encounter. He tolerated prolonged intermittent CRRT prescription. P.o. fluid intake large in the past 24 hours (a sizable portion of this likely p.o. contrast ) however patient also hyponatremic therefore would limit p.o. fluid intake to 1200 cc. We will plan for further shift therapy PRESS PULLER overnight. Anticipate trial of intermittent dialysis TuesdayFebruary 02 assuming intake and vital signs remain acceptable. Beck Sanz MD - 01/31/2022 8:51 AM EDT [facility] [place]GR[place] SECTION OF PULMONARY & CRITICAL CARE MEDICINE Patient seen and examined, and data reviewed, on critical care rounds. Events in Last 24 Hours: Leukocytosis finally down-trending slightly today after several days of rise. Remains afebrile (on scheduled tylenol from [facility]PS service). Culture data negative. CT C/A/P completed yesterday. Review of Systems: A 12 point ROS was negative aside from as listed in the HPI. Objective: Last value Range last 24 hrs Temperature Temp: 36.9 ??C (98.4 ??F) Temp: [36.6 ??C (97.9 ??F)-37 ??C (98.6 ??F)] Heart Rate Heart Rate: (!) 107 Heart Rate: [98-125] Blood Pressure BP: 157/89 BP: (132-163)/(50-98) Respiratory Rate Resp: 23 Resp: [18-35] SpO2 SpO2: 100 % SpO2: [99 %-100 %] Admit Weight 101.8 kg General: Awake Pulmonary/Chest: Bilateral breath sounds Cardiovascular: nl s1/s2, RRR Abdomen: soft, non-tender Extremities: Wound vacs to suction Psychiatric: n/a Neurologic: RASS 0, following commands Diagnostics: 01/30/22 CT C/A/P: 1. A 7.5 x 2.7 cm hypodense lesion in the left gluteus medius with subtle rim enhancement, likely represents postoperative changes status post excisional debridement of the left gluteus medius. However, an abscess cannot be excluded. Recommend attention on follow-up. 2. Diffuse anasarca. 3. Hepatomegaly. Ventilator: N/A Assessment: Alix Holland is a 31 y.o. gentleman admitted to the MICU on 01/23/22 after being found down and encephalopathic by family with verbal reports of Fentanyl ingestion; this was followed by witnessed in-hospital [place] cardiac arrest at the receiving ED (hyperkalemia at the time). He was also noted to have severe rhabdomyolysis with compartment syndrome and resultant ALTHEA. Now POD#8 fasciotomies of L thigh, calf forearm and wrist with several OR returns since then for washouts, debridements, closures and vac exchanges. Previously completed treatment for MSSA pneumonia. Was found to have asymptomatic COVID-19 infection upon admission. Scattered punctate infarcts on MR brain and CT COW/carotids from 01/24/22normal. Neurology believes MRI findings are related to toxometabolic issues rather than a stroke. Remains extubated upon his returns from the OR. Complex pain needs however his requirements have been downtrending steadily and he is now off gtts and off standing agents. He was having an up- trending WBCover the course of the week which may have corresponded with converting his Unasyn to Ancef (needs prophylaxis until fasciotomy sites are closed). An extensive ID work-up was entirely unrevealing and he otherwise remained stable despite this; CT imaging yesterday revealed a 7.5 x 2.7 cm hypodense lesion in the left gluteus medius with subtle rim enhancement, - this was washed out in OR on 01/30 anyway by ortho without concern for acute infection. His Ancef was empirically switched back to Unasyn on 01/29 and today his WBC is 35 from a max of 39. It's not otherwise clear to us what we're treating. To return to OR today. We have been transitioning him to nightly shift therapy which will continue into early next week at which time he can be transitioned to iHD and transferred out of the MICU. He is cleared for PO but his oral intake is overall reduced from the OR returns. Plan: ?? As above IS PATIENT CRITICALLY ILL? Is there a high potential of sudden, clinically significant, or life threatening deterioration? Yes Is there a need for direct personal assessment and management to treat/prevent multiple vital organfailure/deterioration? Yes If this patient is not critically ill, I certify the patient requires continued in-patient hospitalization for [] PATIENT IS CRITICALLY ILL WITH THESE DIAGNOSES BEING MANAGED BY [facility] TEAM: ??? Acute toxic/metabolic encephalopathy ??? Rhabdomyolysis ??? Compartment syndrome ??? Acute hypoxemic respiratory failure ??? Aspiration pneumonia ??? Normocytic anemia ??? Thrombocytopenia ??? Hyponatremia ??? Leukocytosis ??? Transaminitis ??? Protein calorie malnutrition ??? Hypoglycemia I personally performed 30 minutes of aggregate critical care time exclusive of procedures and teaching. This includes time spent during direct patient evaluation and reassessment, interpreting diagnostic tests, directing life and/or organ supporting interventions and documentation on the unit. Beck Sanz MD, 01/31/2022, 8:51 AM Interventional Pulmonology Section of Pulmonary & Critical Care Pager: [phone] Dimas Hernandez MD - 01/31/2022 6:25 AM EDT ORTHOPAEDIC SURGERY INPATIENT PROGRESS NOTE Patient Name: Alix Holland Age: 31 y.o. Surgery/Issue: s/p resection of non-viable tissue, I&D for L dorsal forearm and L lateral leg wounds; s/p resection of non, viable tissues, I&D and wound vac application to L volar forearm wound (2 black sponges) and L thigh wound (1 black sponge) Attending: Dr. Valdovinos Date of surgery: 01/29/2022 SUBJECTIVE / INTERVAL HISTORY: Pt alert and talkative this am Wound vacs to suction. WBC continues to be elevated Denies CP/SOB/N/V. Admits to mild fevers FOCUSED REVIEW OF SYSTEMS: as above. Active Hospital Problems Diagnosis ? ? LUE, LLE compartment syndrome s/p fasciotimies, I+D 01/23/22, 01/26/22 (Dr. Garcia), I&D w/ partial closure 01/29/22 (Dr. Valdovinos) ??? Transaminitis ??? Aspiration pneumonia ??? Rhabdomyolysis ??? Asymptomatic COVID-19 virus infection ??? Lactic acidosis ??? ALTHEA (acute kidney injury) ??? Continuous renal replacement therapy (CRRT) for acute renal failure ??? Cardiac arrest Resolved Hospital Problems No resolved problems to display. Active Non-Hospital Problems Diagnosis ??? Angioedema ??? Chest pain ??? Smoker ??? Mandible fracture MEDICATIONS: ??? heparin (porcine) (1,000 units/mL) injection 1,000-10,000 Units ??? bicarbonate CRRT (NxSTAGE) 3 mEq/L K+, 3 mEq/L Ca++, 5,000 mL Solution 5 each ??? potassium phosphate (0.06 mmol/mL) in sodium chloride 0.9% continuous infusion (CRRT) ??? calcium gluconate 15 g in sodium chloride 0.9% 250 mL infusion ??? dronabinoL (Marinol) capsule 10 mg ??? HYDROmorphone (Dilaudid) tablet 2 mg ??? dextrose 10% 1,000 mL with sodium chloride 154 mEq infusion ??? senna-docusate (Pericolace) 8.6-50 mg per tablet 2 tablet ??? folic acid (Folvite) tablet 1,000 mcg ??? thiamine (Vitamin B1) tablet 100 mg ??? ampicillin-sulbactam (Unasyn) 1.5 g vial attach to sodium chloride 0.9% 50 mL Mini-Bag Plus ??? acetaminophen (Tylenol) tablet 1,000 mg ??? polyethylene glycoL (Miralax) packet 17 g ??? lidocaine (Lidoderm) 5% patch 3 patch AND lidocaine (Lidoderm) topical patch REMOVAL ??? pantoprazole (Protonix) injection 40 mg ??? naloxone (Narcan) (0.4 mg/mL) injection 0.4 mg ??? heparin (porcine) 50 units/mL in sodium chloride 0.45% 500 mL infusion ??? glucose (Glutose) 40% oral geL OR dextrose 10% infusion OR glucagon (Glucagen) (1 mg/mL)injection solution 1 mg ??? heparin (porcine) (5,000 units/1 mL) subcutaneous injection 5,000 Units ??? bicarbonate CRRT with 3 mEq/L K+, 3 mEq/L Ca++ 5 each (01/31/22 0047) ??? potassium phos in 0.9% sodium chloride (CRRT) Stopped (07814) ??? calcium gluconate 10 mL/hr (01/31/22311) ??? Dextrose 10% with Custom Additives 100 mL/hr at 01/31/22 0356 ??? heparin (porcine) infusion 400 Units/hr (01/30/221999) OBJECTIVE: Temp: [36.6 ??C (97.9 ??F)-37.8 ??C (100 ??F)] Heart Rate: [98-125] Resp: [18-35] BP: (132-163)/(50-98) Intake/Output Summary (Last 24 hours) at 01/31/2022 0625 Last data filed at 01/31/2022 0600 Gross per 24 hour Intake 5212 ml Output 3782 ml Net 1430 ml Body mass index is 34.24 kg/m??. PE: General: Pt alert, asking questions CV: RRR assessed peripherally Resp: Breathing comfortably on RA LUE: L volar forearm wound vac (2 black sponges) holding suction L dorsal forearm dressing c/d/i Diminished sensation in R/M/U distribution, only able to minimally move his thumb, otherwise unable to move any of this fingers fingers well-perfused w/ BCR LLE: Wound vac in place in L thigh wound (1 black sponge) holding suction; L lateral leg wound dressing c/d/i No sensory in SP distribution, mild decrease in MP/LP distribution, intact but decreased DP sensation Unable to flex/extend toes Foot well-perfused, +2 DP pulse Lab Results Component Value Date NA 123 (L) 01/31/2022 K 5.1 (H) 01/31/2022 CL 94 (L) 01/31/2022 CO2 21 (L) 01/31/2022 BUN 50 (H) 01/31/2022 CREATININE 4.01 (H) 01/31/2022 GLUCOSE 146 01/30/2022 GLUCFASTING 151 (H) 04/26/2021 CALCIUM 7.5 (L) 01/30/2022 Lab Results Component Value Date WBC 35.8 (CRIT) 01/31/2022 HGB 9.1 (L) 01/31/2022 HCT 25.9 (L) 01/31/2022 MCV 91.2 01/31/2022 PLATELET 195 01/31/2022 Lab Results Component Value Date INR 1.3 01/23/2022 ASSESSMENT / PLAN: Alix Holland is a 31 y.o. male s/p resection of non-viable tissue, I&D for L dorsal forearm and L lateral leg wounds; s/p resection of non- viable tissues, I&D and wound vacapplication to L volar forearm wound and L thigh wound. Recovering appropriately post-op. Plan for return to OR today if medically stable for repeat I&D, vac changes, possible closure. Please keep NPO Activity: NWB LUE, NWB LLE DVT prophylaxis: Per primary Closure: Wound vacs (L forearm-1blk volar, 1blk dorsal L thigh-1blk, L leg-1blk) Dressing: WVac as above Antibiotics: continue ABx until fasciotomy sites closed Dimas Hernandez MD 01/31/2022 No future appointments. Dilia Ferrara RN - 01/30/2022 8:21 PM EDTSummary: TELEMETRY STRIP Images from the original note were not included. Vidhya Peñaloza MD - 01/30/2022 2:11 PM EDT NEPHROLOGY PROGRESS NOTE PATIENT: Alix Holland : 1990 Interval History: Patient seen and discussed during the rounds. Patient is on COVID precautions. Observed through the door at this time. He is going for a mercado-CT today to look for the source of the sepsis. Patient is on AVVH starting tonight. Intake/Output Summary (Last 24 hours) at 01/30/2022 1427 Last data filed at 01/30/2022 1200 Gross per 24 hour Intake 5178.81 ml Output 3194 ml Net 1984.81 ml The plan is to have the patient on shift therapy tonight and assess in the morning. Would limit the fluid intake to 2-3 /24 hours if possible. Assessment and Plan: A 31 year old male with hx coccaine abuse, HTN, angioedema, GERD, gastritis, esophagitis, urachal cyst, initially admitted for cardiac arrest s/p ROSC, hyperkalemia, severe rhabdomylosis, COVID - positive, with his hospital course complicated by Left leg fasciotomy and resection of non-viable tissue seen and examined. - Patient transitioned to [facility]. - Chemistries are stable for now. - Will assess intake - output and chemistries in the morning. PHYSICAL EXAM: Last value Temperature Temp: 36.9 ??C (98.4 ??F) Heart Rate Heart Rate: (!) 110 Blood Pressure BP: (!) 156/98 Respiratory Rate Resp: 29 SpO2 SpO2: 100 % Current Facility-Administered Medications Medication Dose Route Frequency Provider Last Rate Last Admin ??? heparin (porcine) (1,000 units/mL) injection 1,000-10,000 Units 1,000-10,000 Units [id number] PRN Vidhya Peñaloza MD ??? bicarbonate CRRT (NxSTAGE) 3 mEq/L K+, 3 mEq/L Ca++, 5,000 mL Solution 5 each 5 each CRRT Continuous Vidhya Peñaloza MD Held at 01/30/22814 ??? potassium phosphate (0.06 mmol/mL) in sodium chloride 0.9% continuous infusion (CRRT) 0-100 mL/hr Intravenous Continuous Vidhya Peñaloza MD Held at 01/30/2215 ??? calcium gluconate 15 g in sodium chloride 0.9% 250 mL infusion 5 mL/hr Intravenous Continuous Vidhya Peñaloza MD Held at 01/30/22814 ??? fentaNYL (PF) (50 mcg/mL) injection 50 mcg 50 mcg Intravenous Once PRN Agnieszka López APRN ??? dronabinoL (Marinol) capsule 10 mg 10 mg Oral BID Agnieszka López APRN ??? HYDROmorphone (Dilaudid) tablet 2 mg 2 mg Oral Q6H PRN Agnieszka López APRN ??? dextrose 10% 1,000 mL with sodium chloride 154 mEq infusion Intravenous Continuous Agnieszka López APRN ??? sodium chloride 0.9% 250 mL IV bolus Intravenous Once Agnieszka López APRN ??? folic acid (Folvite) tablet 1,000 mcg 1,000 mcg Oral Daily Agnieszka López APRN 1,000 mcg at 01/30/22920 ??? thiamine (Vitamin B1) tablet 100 mg 100 mg Oral Daily Agnieszka López LEVELER HELPER 100 mg at ??? ampicillin-sulbactam (Unasyn) 1.5 g vial attach to sodium chloride 0.9% 50 mL Mini-Bag Plus 1.5 g Intravenous Q8H Agnieszka López APRN Stopped at 01/30/22928 ??? acetaminophen (Tylenol) tablet 1,000 mg 1,000 mg Oral Q8H [place] Cristina Hillman, LEVELER HELPER 1,000 mg at 01/30/22 0611 ??? polyethylene glycoL (Miralax) packet 17 g 17 g Oral Daily Cristina Hillman, LEVELER HELPER 17 g at 01/29/22 0957 ??? lidocaine (Lidoderm) 5% patch 3 patch 3 patch Transdermal Q24H Sun Hayden PA 3 patch at 01/29/222211 And ??? lidocaine (Lidoderm) topical patch REMOVAL 1 patch Transdermal Q24H Sun Hayden PA ??? pantoprazole (Protonix) injection 40 mg 40 mg Intravenous Daily Cristina Hillman B, LEVELER HELPER 40 mg at01/30/22916 ??? docusate sodium (Colace) (10 mg/mL) oral liquid 100 mg 100 mg Oral BID Cristina Hillman B, LEVELER HELPER 100 mg at 01/29/222130 And ??? sennosides (Senokot) (1.76 mg/mL) oral liquid 17.6 mg 17.6 mg Oral BID Cristina Hillman B, LEVELER HELPER 17.6 mg at 01/29/222130 ??? naloxone (Narcan) (0.4 mg/mL) injection 0.4 mg 0.4 mg Intravenous Once PRN Sun Hayden PA ??? ketamine (Ketalar) (1 mg/mL) in sodium chloride 0.9% 250 mL infusion 0.1 mg/kg/hr Intravenous Continuous Agnieszka López APRN 11.6 mL/hr at 01/30/22 0910 0.1 mg/kg/hr at 01/30/22 0910 And ??? ketamine shift total and Settings verification Intravenous 2 Times Daily - Shift Total Agnieszka López APRN ??? heparin (porcine) 50 units/mL in sodium chloride 0.45% 500 mL infusion 400 Units/hr Intravenous Continuous Cristina Hillman B LEVELER HELPER 8 mL/hr at 01/29/222130 400 Units/hr at 01/29/222130 ??? glucose (Glutose) 40% oral geL 15-30 g of glucose Buccal Q30 Min PRN Rafy Gemma B LEVELER HELPER Or ??? dextrose 10% infusion 250 mL Intravenous Q30 Min PRN Rafy Gemma B, LEVELER HELPER Stopped at Or ??? glucagon (Glucagen) (1 mg/mL) injection solution 1 mg 1 mg Intramuscular Q30 Min PRN Rafy Gemashley B LEVELER HELPER ??? heparin (porcine) (5,000 units/1 mL) subcutaneous injection 5,000 Units 5,000 Units [id number] [facility] Rafy, Gemma B, LEVELER HELPER 5,000 Units at 01/30/22 0611 Recent Results (from the past 18 hour(s)) Phosphorus Collection Time: 01/29/22 9:35 PM Result Value Ref Range Phosphorus 4.9 (H) 2.5 - 4.5 mg/dL POCT Glucose Collection Time: 01/29/22 9:40 PM Result Value Ref Range POC Glucose 128 65 - 199 mg/dL POCT Glucose Collection Time: 01/30/22 12:07 AM Result Value Ref Range POC Glucose 115 65 - 199 mg/dL Magnesium Collection Time: 01/30/22 4:10 AM Result Value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 resolved problems to display. Active Non-Hospital Problems Diagnosis ??? Angioedema ??? Chest pain ??? Smoker ??? Mandible fracture MEDICATIONS: ??? magnesium sulfate 2 g in sterile water 50 mL infusion ??? polyethylene glycoL (Miralax) packet 17 g ??? dextrose 10% infusion ??? lidocaine (Lidoderm) 5% patch 3 patch AND lidocaine (Lidoderm) topical patch REMOVAL ??? HYDROmorphone (Dilaudid) (2 mg/mL) injection solution 2-4 mg ??? HYDROmorphone (Dilaudid) tablet 4 mg ??? benzonatate (Tessalon) capsule 200 mg ??? ceFAZolin (Ancef) 2 g vial attach to sodium chloride 0.9% 100 mL Mini-Bag Plus ??? tube feeding diet ??? dronabinoL (Marinol) capsule 15 mg ??? pantoprazole (Protonix) injection 40 mg ??? docusate sodium (Colace) (10 mg/mL) oral liquid 100 mg AND sennosides (Senokot) (1.76 mg/mL)oral liquid 17.6 mg ??? naloxone (Narcan) (0.4 mg/mL) injection 0.4 mg ??? ketamine (Ketalar) (1 mg/mL) in sodium chloride 0.9% 250 mL infusion AND ketamine shift total and Settings verification ??? heparin (porcine) 50 units/mL in sodium chloride 0.45% 500 mL infusion ??? heparin (porcine) (1,000 units/mL) injection 1,000-10,000 Units ??? bicarbonate CRRT (NxSTAGE) 4 mEq/L K+, 3 mEq/L Ca++, 5,000 mL Solution 5 each ??? sodium phosphate (0.1 mMol/mL) in sodium chloride 0.9 % 150 mL infusion (CRRT) ??? calcium gluconate 15 g in sodium chloride 0.9% 250 mL infusion ??? glucose (Glutose) 40% oral geL OR dextrose 10% infusion OR glucagon (Glucagen) (1 mg/mL)injection solution 1 mg ??? heparin (porcine) (5,000 units/1 mL) subcutaneous injection 5,000 Units ??? thiamine (Vitamin B-1) (100 mg/mL) injection 100 mg ??? folic acid (Vitamin B9) (5 mg/mL) injection 1 mg ??? dextrose 10% 100 mL/hr (01/29/22 0200) ??? tube feeding diet Stopped (01/28/22 0000) ??? ketamine 0.5 mg/kg/hr (01/29/22 0448) ??? heparin (porcine) infusion Stopped (01/28/22 1440) ??? bicarbonate CRRT with 4 mEq/L K+, 3 mEq/L Ca++ 5 each (01/28/22 0600) ??? sodium phosphate Stopped (01/28/22 1440) ??? calcium gluconate Stopped (01/25/22 1204) OBJECTIVE: Temp: [36.8 ??C (98.2 ??F)-38.1 ??C (100.6 ??F)] Heart Rate: [95-124] Resp: [18-38] BP: (123-163)/(68-105) Intake/Output Summary (Last 24 hours) at 01/29/2022 0656 Last data filed at 01/29/2022 0606 Gross per 24 hour Intake 6597.39 ml Output 6335 ml Net 262.39 ml Body mass index is 34.89 kg/m??. PE: General: coming off of sedation, able to answer some questions CV: RRR assessed peripherally Resp: Breathing comfortably on 2L NC LUE: Dressing c/d/i, vac holding suction Sensory grossly intact to exposed hand, weakly grasps w/ hand further sensory and motor exam limited by sedation/mental status Brisk cap refill in the hand LLE: Vac to posterior calf and vac to posterior thigh/buttock both holding suction LLE edematous to the knee Sensory to light touch grossly intact to thigh & foot, weakly flexes and extends toes further sensory motor exam limited by sedation/mental status DP palpable pulse Lab Results Component Value Date NA 130 (L) 01/29/2022 K 4.8 01/29/2022 CL 98 01/29/2022 CO2 24 01/29/2022 BUN 34 (H) 01/29/2022 CREATININE 3.22 (H) 01/29/2022 GLUCOSE 124 01/29/2022 GLUCFASTING 151 (H) 04/26/2021 CALCIUM 7.6 (L) 01/29/2022 Lab Results Component Value Date WBC 29.4 (H) 01/29/2022 HGB 10.7 (L) 01/29/2022 HCT 31.3 (L) 01/29/2022 MCV 93.7 (H) 01/29/2022 PLATELET 148 01/29/2022 Lab Results Component Value Date INR 1.3 01/23/2022 IMAGING: N/A ASSESSMENT / PLAN: Alix Holland is a 31 y.o. male 3 Days Post-Op s/p I+D LUE, LLE. Doing well post-operatively. Multimodal pain regimen keeping patient relatively sedated, denies motor or sensory function of LUE or LLE, though difficult to assess. Plan for return to OR today for repeat washout. Please keep NPO. Activity: NWB LUE, NWB LLE DVT prophylaxis: Per primary Closure: Wound vacs (L forearm-1blk volar, 1blk dorsal L thigh-1blk, L leg-1blk) Dressing: WVac as above Antibiotics: continue ABx until fasciotomy sites closed Doc Roberts MD 01/29/2022 No future appointments. Associated attestation - Sigifredo Garcia MD - 01/29/2022 9:28 AM EDT I discussed the patient and the plan for the patient's care with the primary author and reviewed thedata. I have reviewed and agree with the findings and the plan of care as outlined above. Sigifredo Garcia MD Department of Orthopaedics 01/29/22 Nicole Chung RN - 01/28/2022 8:24 PM EDTSummary: TeleICU strip Images from the original note were not included. Meghan Prabhakar PT - 01/28/2022 1:54 PM EDT Physical Therapy Contact Note Consult received, chart reviewed. Pt is scheduled for the OR for wound closure today, plan to defer physical therapy evaluation until post-operatively. Plan to follow up tomorrow as appropriate. Meghan Prabhakar PT DPT Pager #[phone] 01/28/2022 Physical Therapy Rehabilitation Department Dai Duarte OT - 01/28/2022 11:28 AM EDT Occupational Therapy: 01/28/22 1127 Evaluation & Treatment Document Type contact Total Minutes, Occupational Therapy 0 Comment, Session Not Performed OT orders received/chart reviewed. Patient scheduled for the OR today. RN requested therapy hold for today. OT will follow up tomorrow Dai Duarte OTR/L Pager [phone] Alcira Dwyer MD - 01/28/2022 9:09 AM EDT Patient is seen and examined in the intensive care unit for acute kidney injury related to rhabdomyolysis. BP (!) 143/93 (BP Location (NBP): Right arm) Pulse (!) 108 Temp 37.5 ??C (99.5 ??F) (Bladder) Resp (!) 35 Ht 182.9 cm (6') Wt 116.1 kg (255 lb 15.3 oz) SpO2 100% BMI 34.71 kg/m?? I/O last 3 completed shifts: In: 38901.9 [P.O.:1150; I.V.:81649.9; NG/GT:1213; IV Piggyback:394] Out: 58772 [Urine:160; Other:47628] CBC Lab Results Component Value Date WBC 23.9 (H) 01/28/2022 Hemoglobin 11.9 (L) 01/28/2022 Hematocrit 34.7 (L) 01/28/2022 Platelets 106 (L) 01/28/2022 Lab Results Component Value Date Sodium 136 01/28/2022 Potassium 4.6 01/28/2022 Chloride 102 01/28/2022 CO2 25 01/28/2022 BUN 20 01/28/2022 Creatinine 2.03 (H) 01/28/2022 Glucose Lvl 118 01/28/2022 He is making small amounts of urine and we discussed with the team giving him a filter holiday overnight see if he will pickle solution maker his urine output. We can decide tomorrow if he is a candidate for shift therapy. It is possible that he will improve enough that he could be managed with diuretics. We will continue to follow Backer, Beck Boykin MD - 01/28/2022 9:07 AM EDT [facility] [place] SECTION OF PULMONARY & CRITICAL CARE MEDICINE Patient seen and examined, and data reviewed, on critical care rounds. Events in Last 24 Hours: Remains extubated, evaluated by APS, pain better controlled today, to OR later today and NPO. WBC up-trending and culture data repeated yesterday. UA unremarkable. Review of Systems: A 12 point ROS was negative aside from as listed in the HPI. Objective: Last value Range last 24 hrs Temperature Temp: 37.4 ??C (99.3 ??F) Temp: [37.3 ??C (99.1 ??F)-37.9 ??C (100.2 ??F)] Heart Rate Heart Rate: (!) 102 Heart Rate: [95-121] Blood Pressure BP: 137/88 BP: (122-153)/(75-89) Respiratory Rate Resp: 19 Resp: [15-29] SpO2 SpO2: 100 % SpO2: [100 %] Admit Weight 101.8 kg General: Awake Pulmonary/Chest: Bilateral breath sounds Cardiovascular: nl s1/s2, RRR Abdomen: soft, non-tender Extremities: Wound vacs to suction Psychiatric: n/a Neurologic: RASS 0, following commands Diagnostics: 01/24/22 MR Brain: Acute globi pallidi infarctions. Scattered punctate infarctions in the cerebellar hemispheres. Ventilator: N/A Assessment: Alix Holland is a 31 y.o. gentleman admitted to the MICU on 01/23/22 after being found down and encephalopathic by family with verbal reports of Fentanyl ingestion; this was followed by witnessed in-hospital [place] cardiac arrest at the receiving ED (hyperkalemia at the time). He was also noted to have severe rhabdomyolysis with compartment syndrome and resultant ALTHEA. Now POD#5 fasciotomies of L thigh, calf forearm and wrist and POD#2 I+D SHAMAR ROBB. Treated for aspiration pneumonia versus MSSA CAP. He was also found to have asymptomatic COVID19 infection in admission testing, not currently receiving adjunct testing. Scattered punctate infarcts on MR brain and CT COW/carotids from 01/24/22 read as normal. Extubated PM of 01/26/22. Plan for return to return to OR this afternoon. Remainder of care as noted below. Plan: ??? NPO for return to OR this afternoon with ortho ??? Unasyn converted to Ancef 01/27/22; antibiotics until fasciotomy closures ??? Await pending culture data which was repeated 01/27/22 ??? Will hold CRRT overnight and see if we can transition to shift therapy ??? Complicated analgesia regimen and APS now following ??? Today will work on weaning off Precidex; can use Clonidine taper if necessary ??? Receiving combination of tube feeds and PO intake when not NPO ??? Escalating bowel regimen ??? Will plan on conversion of TLC to PICC this week ??? Matching wound vac output/running even overall IS PATIENT CRITICALLY ILL? Is there a high potential of sudden, clinically significant, or life threatening deterioration? Yes Is there a need for direct personal assessment and management to treat/prevent multiple vital organfailure/deterioration? Yes If this patient is not critically ill, I certify the patient requires continued in-patient hospitalization for [] PATIENT IS CRITICALLY ILL WITH THESE DIAGNOSES BEING MANAGED BY [facility] TEAM: ??? Acute toxic/metabolic encephalopathy ??? Rhabdomyolysis ??? Compartment syndrome ??? Acute hypoxemic respiratory failure ??? Aspiration pneumonia ??? Normocytic anemia ??? Thrombocytopenia ??? Hyponatremia ??? Transaminitis ??? Protein calorie malnutrition I personally performed 30 minutes of aggregate critical care time exclusive of procedures and teaching. This includes time spent during direct patient evaluation and reassessment, interpreting diagnostic tests, directing life and/or organ supporting interventions and documentation on the unit. Beck Sanz MD, 01/28/2022, 9:07 AM Interventional Pulmonology Section of Pulmonary & Critical Care Pager: [phone] Parrish Esqueda MD - 01/28/2022 5:26 AM EDT ORTHOPAEDIC SURGERY INPATIENT PROGRESS NOTE Patient Name: Alix Holland Age: 31 y.o. Surgery/Issue: s/p repeat I+D SHAMAR ROBB Attending: Dr. Garcia Date of surgery: 01/23/2022 SUBJECTIVE / INTERVAL HISTORY: VSS aside from tachycardic in lows 100s, improved over previous day Satting well on RA WBC increased to 23.9 this morning from 18.9 yesterday and 12.9 two days prior. Blood and urine cultures sent off Hgb stable at 11.9 Cr remains high at 2.03 but stable Rather sedated this morning. On precedex, ketamine, dilaudid and Marinol Wound vac to leg with 200 cc output an hour, reduced to -100 mm hg from -125 mm hg, output mainly from lower leg incision and from volar LUE incision Issue with blockage of forearm wound vac requiring replacement of lilypad Patient denies chest pain, shortness of breath, nausea, vomiting, numbness/weakness. FOCUSED REVIEW OF SYSTEMS: as above. Active Hospital Problems Diagnosis ??? Rhabdomyolysis ??? Transaminitis ??? Aspiration pneumonia ??? SHAMAR ROBB compartment syndrome s/p fasciotimies, I+D 01/23/22 Jose ??? Asymptomatic COVID-19 virus infection ??? Lactic acidosis ??? ALTHEA (acute kidney injury) ??? Continuous renal replacement therapy (CRRT) for acute renal failure ??? Cardiac arrest Resolved Hospital Problems No resolved problems to display. Active Non-Hospital Problems Diagnosis ??? Angioedema ??? Chest pain ??? Smoker ??? Mandible fracture MEDICATIONS: ??? lidocaine (Lidoderm) 5% patch 3 patch AND lidocaine (Lidoderm) topical patch REMOVAL ??? HYDROmorphone (Dilaudid) (2 mg/mL) injection solution 2-4 mg ??? HYDROmorphone (Dilaudid) tablet 4 mg ??? benzonatate (Tessalon) capsule 200 mg ??? ceFAZolin (Ancef) 2 g vial attach to sodium chloride 0.9% 100 mL Mini-Bag Plus ??? tube feeding diet ??? dronabinoL (Marinol) capsule 15 mg ??? pantoprazole (Protonix) injection 40 mg ??? docusate sodium (Colace) (10 mg/mL) oral liquid 100 mg AND sennosides (Senokot) (1.76 mg/mL)oral liquid 17.6 mg ??? polyethylene glycoL (Miralax) packet 17 g ??? dextrose 5% and lactated ringers infusion ??? naloxone (Narcan) (0.4 mg/mL) injection 0.4 mg ??? ketamine (Ketalar) (1 mg/mL) in sodium chloride 0.9% 250 mL infusion AND ketamine shift total and Settings verification ??? heparin (porcine) 50 units/mL in sodium chloride 0.45% 500 mL infusion ??? heparin (porcine) (1,000 units/mL) injection 1,000-10,000 Units ??? bicarbonate CRRT (NxSTAGE) 4 mEq/L K+, 3 mEq/L Ca++, 5,000 mL Solution 5 each ??? sodium phosphate (0.1 mMol/mL) in sodium chloride 0.9 % 150 mL infusion (CRRT) ??? calcium gluconate 15 g in sodium chloride 0.9% 250 mL infusion ??? glucose (Glutose) 40% oral geL OR dextrose 10% infusion OR glucagon (Glucagen) (1 mg/mL)injection solution 1 mg ??? chlorhexidine (Peridex) 0.12 % oral solution 15 mL ??? heparin (porcine) (5,000 units/1 mL) subcutaneous injection 5,000 Units ??? NORepinephrine (Levophed) (16 mcg/mL) in dextrose 5% 250 mL infusion ??? thiamine (Vitamin B-1) (100 mg/mL) injection 100 mg ??? folic acid (Vitamin B9) (5 mg/mL) injection 1 mg ??? dexmedeTOMIDine (Precedex) (4 mcg/mL) in sodium chloride 0.9% 100 mL infusion ??? tube feeding diet Stopped (01/28/22 0000) ??? dextrose 5% lactated ringers 250 mL/hr (01/28/22 0420) ??? ketamine 0.5 mg/kg/hr (01/28/22 0428) ??? heparin (porcine) infusion 400 Units/hr (01/27/22 0800) ??? bicarbonate CRRT with 4 mEq/L K+, 3 mEq/L Ca++ 5 each (01/28/22 0100) ??? sodium phosphate 15 mL/hr (01/28/22 0056) ??? calcium gluconate Stopped (01/25/22 1204) ??? NORepinephrine Stopped (01/26/222016) ??? dexmedeTOMIDine 0.5 mcg/kg/hr (01/28/22 0420) OBJECTIVE: Temp: [37.3 ??C (99.1 ??F)-37.9 ??C (100.2 ??F)] Heart Rate: [99-121] Resp: [15-29] BP: (122-153)/(75-96) Intake/Output Summary (Last 24 hours) at 01/28/2022 0526 Last data filed at 01/28/2022 0400 Gross per 24 hour Intake 9192.61 ml Output 62190 ml Net -1170.39 ml Body mass index is 34.71 kg/m??. PE: General: coming off of sedation, able to answer some questions CV: RRR assessed peripherally Resp: Breathing comfortably on 2L NC LUE: Dressing c/d/i, vac holding suction Sensory grossly intact to exposed hand, weakly grasps w/ hand further sensory and motor exam limited by sedation/mental status Brisk cap refill in the hand LLE: Vac to posterior calf and vac to posterior thigh/buttock both holding suction LLE edematous to the knee Sensory to light touch grossly intact to thigh & foot, weakly flexes and extends toes further sensory motor exam limited by sedation/mental status DP palpable pulse Lab Results Component Value Date NA 136 01/28/2022 K 4.6 01/28/2022 CL 102 01/28/2022 CO2 25 01/28/2022 BUN 20 01/28/2022 CREATININE 2.03 (H) 01/28/2022 GLUCOSE 118 01/28/2022 GLUCFASTING 151 (H) 04/26/2021 CALCIUM 7.9 (L) 01/28/2022 Lab Results Component Value Date WBC 23.9 (H) 01/28/2022 HGB 11.9 (L) 01/28/2022 HCT 34.7 (L) 01/28/2022 MCV 95.6 (H) 01/28/2022 PLATELET 106 (L) 01/28/2022 Lab Results Component Value Date INR 1.3 01/23/2022 IMAGING: N/A ASSESSMENT / PLAN: Alix Holland is a 31 y.o. male 2 Days Post-Op s/p I+D SHAMAR ROBB. Doing well post-operatively. Now extubated on RA. Multimodal pain regimen keeping patient relatively sedated. Plan for return to OR today for repeat washout. Please keep NPO. Activity: NWB CEZAR, NWB GLENE DVT prophylaxis: Per primary Closure: Wound vacs (L forearm-1blk volar, 1blk dorsal L thigh-1blk, L leg-1blk) Dressing: WVac as above Antibiotics: continue ABx until fasciotomy sites closed Parrish Esqueda MD 01/28/2022 No future appointments. Associated attestation - Sigifredo Garcia MD - 01/29/2022 9:28 AM EDT I discussed the patient and the plan for the patient's care with the primary author and reviewed thedata. I have reviewed and agree with the findings and the plan of care as outlined above. Sigifredo Garcia MD Department of Orthopaedics 01/29/22 Jaylen Villela RN - 01/27/2022 9:16 PM EDTSummary: tele [facility] Images from the original note were not included. Gail Long - 01/27/2022 3:34 PM EDT Images from the original note were not included. Critical Care Green Team Shared Progress Note Admitted: 01/23/2022 12:29 AM Hospital day: 5 ICU day: 3 ID: Alix Holland is a 31 y.o. male with PMH significant for hypertension, angioedema requiring intubation (unclear trigger), GERD, gastritis, esophagitis, and urachal cyst s/p I&D, and polysubstance use (including EtOH, cocaine, heroin)??admitted to ICU on 01/23 after being found down 12-24 hoursand encephalopathic by family with a reported Fentanyl ingestion. He had a [place] cardiac arrest as he arrived at the OSH and received shock x1. He was noted to have severe rabdomyolysis with compartment syndrome and an ALTHEA. He had a CK >220,000, K 7.8. Hospital/ICU course has been significant for: ?? COVID + ?? (01/23) fasciotomies of L thigh, calf forearm, and wrist ?? CRRT for acute renal failure ?? CT head and MRI showed small infarcts in basal ganglia, MRI angiogram head/neck clear ?? Grew staph in sputum, on Unasyn IV since 01/23 24-hour events: ?? CRRT running even ?? NPO since 0000 ?? Overnight pt removed NGT, able to swallow pills ?? WBC up to 23.9, ordered BCx2, vascular only able to get 1 set), UA w/micro ?? Left forearm wound vac issues, ortho came by and changed Last value Range last 24 hrs Temperature Temp: 37.4 ??C (99.3 ??F) Temp: [37.3 ??C (99.1 ??F)-37.9 ??C (100.2 ??F)] Heart Rate Heart Rate: (!) 103 Heart Rate: [95-121] Blood Pressure BP: 138/87 BP: (122-153)/(75-96) Respiratory Rate Resp: 20 Resp: [15-29] SpO2 SpO2: 100 % SpO2: [100 %] Art BP BP (Arterial Line): 107/67 BP (Arterial Line): -- Infusions: ??? tube feeding diet Stopped (01/28/22 0000) ??? dextrose 5% lactated ringers 250 mL/hr (01/28/22 0420) ??? ketamine 0.5 mg/kg/hr (01/28/22 0428) ??? heparin (porcine) infusion 400 Units/hr (01/27/22 0800) ??? bicarbonate CRRT with 4 mEq/L K+, 3 mEq/L Ca++ 5 each (01/28/22 0600) ??? sodium phosphate 15 mL/hr (01/28/22 0056) ??? calcium gluconate Stopped (01/25/22 1204) ??? NORepinephrine Stopped (01/26/222016) ??? dexmedeTOMIDine 0.5 mcg/kg/hr (01/28/22 0420) Recent Labs 01/25/22 0622 01/24/22 0620 01/24/22 0016 PHART 7.45 7.48* 7.48* [id number] 33* 29* 30* PO2ART 114* 68* 70* [id number] 22.4 21.1 22.0 Intake/Output Summary (Last 24 hours) at 01/28/2022 0703 Last data filed at 01/28/2022 0700 Gross per 24 hour Intake 9662.51 ml Output 37371 ml Net -1043.49 ml Output: Urine 70 mL For admission: +29617.1 mL Physical Exam: General: Awake, somewhat conversational HEENT: no issues Neuro: RASS -1 to 0, 0.5 Precedex, 0.5 Ketamine, follows commands bilaterally Pulmonary: BL clear breath sounds, intermittent non-productive cough (room air) Cardiovascular: S1, S1, No MRG, palpable pulses Abdomen: SNT, BS : Ayala, aneuric, on CRRT Extremities: wound vac dressings c/d/i, warm, well-perfused, good cap refill Skin: warm and dry Labs: Last 3 wbc, hgb, hct plt Recent Labs 01/28/22 0018 01/27/22 1022 01/26/22 0020 WBC 23.9* 18.9* 12.9* HGB 11.9* 11.6* 11.5* HCT 34.7* 34.2* 33.2* PLATELET 106* 100* 115* Last 3 Lytes Recent Labs 01/28/22 0018 01/27/22 1205 01/27/22 0125 01/26/22 0020 NA 136 -- 135 137 K 4.6 -- 4.4 4.6 CL 102 -- 104 103 CO2 25 -- 25 27 BUN 20 -- 21* 26* CREATININE 2.03* 2.06* 2.12* 1.89* Last 3 LFTs Recent Labs 01/28/22 0018 01/27/22 0125 01/26/22 0020 AST 418* 618* 710* ALT 237* 418* 591* ALKPHOS 88 82 56 BILITOT 0.4 0.9 0.4 BILIDIR 0.3 0.8* 0.2 Last Ca, Mg, Phos Recent Labs 01/28/22 0018 CALCIUM 7.9* PHOS 2.5 MAGNESIUM 0.81 Last 3 Coags Recent Labs 01/23/22 0155 01/23/22 0045 PT 14.4* Disregard INR 1.3 Disregard PTT 25 Disregard Last 3 ProBNP, Trop, CK Recent Labs 01/28/22 0018 01/27/22 1755 01/27/22 0536 01/24/22 0018 01/23/22 1810 01/23/22 1130 01/23/22 0600 CK 14,277* 15,910* 21,662* < > 158,050* 146,810* 158,930* TROPONINT -- -- -- -- 0.14* 0.24* 0.35* < > = values in this interval not displayed. Last 3 Lipids Recent Labs 01/26/22 0020 01/23/22 0045 04/26/211954 TRIG 359 273 104 Last CRP, SEDRATE Recent Labs 04/26/211954 CRP <3.0 SEDRATE <3 Microbiology: Microbiology Results (Last 30 days) Procedure Component Value Units Date/Time MRSA PCR [[id number]] Collected: 01/24/22 1310 Lab Status: Final result Specimen: Nasopharyngeal Swab Updated: 01/25/22 2224 MRSA Result Negative MRSA Interp -- Negative for methicillin-resistant Staphylococcus aureus (MRSA) This test was performed using the [employer]?? Dx System and the Xpert MRSA Assay. The MRSA target DNA was not detected. The sample processing control and probe check were valid. The performance of this test was determined by the [facility] [place] [facility]. It has been cleared by the U.S. Food and Drug Administration for clinical use. Comment: [VERIFIED DATE]01.25.22 Verified By:Alfonso Soto (Electronic Signature) MRSA PCR [[id number]] Collected: 01/23/22 1247 Lab Status: Final result Specimen: Nasopharyngeal Swab Updated: 01/25/22 1023 MRSA Result Negative MRSA Interp -- Negative for methicillin-resistant Staphylococcus aureus (MRSA) This test was performed using the [employer] Ther[employer]?? Dx System and the Xpert MRSA Assay. The MRSA target DNA was not detected. The sample processing control and probe check were valid. The performance of this test was determined by the [facility] [place] [facility]. It has been cleared by the U.S. Food and Drug Administration for clinical use. Comment: [VERIFIED DATE]01.25.22 Verified By:Nora Shay (Electronic Signature) Lower Respiratory Culture Tracheal Aspirate [[id number]] (Abnormal) (Susceptibility) Collected: 01/23/22 1150 Lab Status: Final result Specimen: Tracheal Aspirate Updated: 01/25/22 1001 Lower Respiratory Culture -- Many Staphylococcus aureus Few mixed bacterial morphotypes suggestive of normal upper respiratory yessy Gram Stain -- Many Neutrophils No squamous epithelial cells Moderate Gram Positive Cocci Susceptibility Staphylococcus aureus VITEK 2 METHOD Clindamycin Sensitive Erythromycin Sensitive Gentamicin Sensitive [1] Oxacillin Sensitive [2] Tetracycline Sensitive Trimethoprim/Sulfa Sensitive Vancomycin Sensitive [1] Gentamicin is not appropriate for [place]-therapy. [2] Oxacillin (methicillin) susceptibility is a surrogate for the oral and parenteral cephalosporins, beta-lactam combination agents (amoxicillin-clavulanate, ampicillin-sulbactam and piperacillin-tazobactam) and carbapenem agents. It is NOT a surrogate for penicillin, ampicillin or piperacillin susceptibility. Linear View Blood culture [[id number]] Collected: 01/23/22 0600 Lab Status: Final result Specimen: Blood Updated: 01/28/22 0701 Blood Culture No growth at 5 days. Blood culture [[id number]] Collected: 01/23/22 0126 Lab Status: Final result Specimen: Blood Updated: 01/28/22 0701 Blood Culture No growth at 5 days. COVID-19 PCR [[id number]] (Abnormal) Collected: 01/23/22 0044 Lab Status: Final result Specimen: Tracheal Aspirate Updated: 01/23/22 1215 SARS-CoV-2 RNA Detected Comment: This result should be interpreted in combination with the clinical observations, patient history and epidemiological information in making a final diagnosis. For testing of asymptomatic individuals, assay performance characteristics and clinical utility have not been evaluated. Testing for SARS-CoV-2 (Severe acute respiratory syndrome coronavirus 2, formerly known as 2019 novel coronavirus or 2019-nCoV) to aid in the diagnosis of COVID-19 is performed using the [employer] SARS-CoV-2 Assay as authorized by the FDA Emergency Use Authorization (EUA). This EUA assay is intended for In-vitro Diagnostic (IVD) use with respiratory specimens such as nasopharyngeal swabs collected from individuals during the acute phase of infection. This assay is performed based on the instructions for use provided by [employer] and additional guidance provided by CDC and FDA. Testing is performed in the [facility] within the Department of Pathology and Laboratory Medicine at [facility], certified under the Clinical Laboratory Improvement Amendments of 1988 (CLIA), 42 U.S.C. 263a, to perform high complexity tests. Assay performance has been verified according to clinical laboratory regulatory requirements for use with specimens collected from individuals suspected of COVID-19. Test results are provided above. A result of Not Detected indicates that the viral RNA target is not present above the limit of detection, but does not preclude SARS-CoV-2 infection. False negative results may occur if a specimen is improperly collected, transported or handled; if amplification inhibitors are present; or if inadequate numbers of viral particles are present in the specimen. When a diagnostic test is negative, the possibility of a false negative result should be considered in the context of a patient's recent exposures and the presence of clinical signs and symptoms consistent with COVID-19. A result of Detected indicates that RNA from SARS-CoV-2 was detected and the patient is infected. As required or requested by public health authorities, positive specimens may be sent for additional testing. Positive and negative predictive values for this test are highly dependent on disease prevalence. A result of Invalid indicates that neither the viral RNA targets nor the internal control target was detected. An invalid result suggests the presence of inhibitors. Recollection and re-testing is recommended in the case of an invalid result. CDC COVID-19 criteria for testing on human specimens and clinical management guidance information are available at the CDC Coronavirus Disease 2019 (COVID-19) webpage under Information for Healthcare Professionals (https://www.cdc.gov/coronavirus/2019-ncov/hcp/index.html) Additional information about this and other EUA tests can be found in provider and patient fact sheets at the following FDA website: https://www.fda.gov/medical-devices/nchlwmyembn-mbidasi-7596-omqtu-38-gkkiljhbf- scj-zxpfeyzcvwkohf-qngjnvi-devices/fkung-txvwoucxspg-yojp SARS-Cov-2 RNA Source Trach Asp MRSA PCR [[id number]] Collected: 01/23/22 0044 Lab Status: Final result Specimen: Nasopharyngeal Swab Updated: 01/25/22 1024 MRSA Result Negative MRSA Interp -- Negative for methicillin-resistant Staphylococcus aureus (MRSA) This test was performed using the Gene[employer]pert?? Dx System and the Xpert MRSA Assay. The MRSA target DNA was not detected. The sample processing control and probe check were valid. The performance of this test was determined by the [facility] [place] [facility]. It has been cleared by the U.S. Food and Drug Administration for clinical use. Comment: [VERIFIED DATE]01.25.22 Verified By:Nora Shay (Electronic Signature) Assessment: Alix Holland is a 31 year old male on hospital day 4 following a VT cardiac arrest in the setting of rhabdomayalsis and compartment syndrome and fasciotomy, with downtrending CK and LFTs but struggling with complex pain issues. Plan: Neuro: Pain, scattered punctate infarcts on MR brain ?? Thiamine, folic acid ?? Ketamine gtt, Dilaudid PO 4 mg scheduled, Dilaudid IV for breakthrough, lidocaine patches, Marinol per APS ?? Stop Precedex Pulm: No acute issues ?? Tessalon pearls 3 days scheduled Q6 for cough CV: S/p cardiac arrest, tachycardia? ?? MAP >65, Levo at 1 related to sedation GI: Transaminitis ?? NPO for OR today, resume regular diet as tolerated ?? 250 mL/hr D5LR ?? No BM >24 hours, give Miralax, goal 1 BM/day, keep Flexi in for now Renal/FEK: ALTHEA on CRRT ?? Continue to replace 1:1 of wound vac output ?? Goal euvolemia ?? Stop Filter after OR, trial off for the night MSK: Rhabdomyalsis with compartment syndrome POD3 from fasciotomies ?? Wound vac x2 ?? I&D today ?? Q4 neurovascular checks Hematology: No active issues ID: Currently on Unasyn for aspiration pneumonia vs MSSA PNA vs atelectasis, COVID+ w/out symptoms ?? Ancef ?? Contact and Airborne precautions ?? Consider PICC tomorrow Endocrine: hypoglycemia ?? Q4 fingersticks ?? 250 mL/hr LR with 5% dextrose continuous gtt Other prophylaxis: Heparin 5000 units for DVT prophylaxis Pantoprazole for GI prophylaxis HOB > 30 Chlorhexidine mouth care Mepliex to sacrum PT/OT: Lines/Tubes/Drains: Patient Lines/Drains/Airways Status Active Tubes/Lines/Drains Name Placement date Placement time Site Days Percutaneous Central Line - Triple Lumen 01/23/22 0600 internal jugular vein, right 01/23/22 0600 -- 5 Percutaneous Central Line - Triple Lumen 01/23/22 1625 internal jugular vein, left 01/23/22 1625 --5 Rectal Tube 01/23/22 0600 fecal management system 01/23/22 0600 -- 5 Urethral Catheter 01/23/22 0035 01/23/22 0035 -- 5 Consults: ortho, neuro, ACS, wound, nephrology Decision Making: Code Status: Full Disposition: ICU Suggestions for changes: Gail Long January 28, 2022 Critical Care Green Team (pager [phone]) Alcira Dwyer MD - 01/27/2022 10:10 AM EDT Patient is seen and examined in intensive care unit on CVV[facility] for acute kidney injury related to rhabdomyolysis. BP 149/87 (Patient Position: Lying) Pulse (!) 114 Temp 37.6 ??C (99.7 ??F) (Bladder) Resp 18 Ht 182.9 cm (6') Wt 117.3 kg (258 lb 9.6 oz) SpO2 100% BMI 35.07 kg/m?? I/O last 3 completed shifts: In: 82218.5 [I.V.:66626.5; NG/GT:319; IV Piggyback:236] Out: 8974 [Urine:105; Other:8864; Blood:5] CBC No results found for: WBC, HGB, HCT, PLATELET Lab Results Component Value Date Sodium 135 01/27/2022 Potassium 4.4 01/27/2022 Chloride 104 01/27/2022 CO2 25 01/27/2022 BUN 21 (H) 01/27/2022 Creatinine 2.12 (H) 01/27/2022 Glucose Lvl 112 01/27/2022 The patient continues to be critically ill with significant amount of IV infusion. We will continue CRRT for present time. Has had some modest increase in urine output but not significant Backer, Beck Boykin MD - 01/27/2022 9:35 AM EDT [facility] [place]GRESS [place] SECTION OF PULMONARY & CRITICAL CARE MEDICINE Patient seen and examined, and data reviewed, on critical care rounds. Events in Last 24 Hours: To the OR yesterday and extubated successfully yesterday PM. Review of Systems: A 12 point ROS was negative aside from as listed in the HPI. Objective: Last value Range last 24 hrs Temperature Temp: 37.4 ??C (99.3 ??F) Temp: [35.8 ??C (96.4 ??F)-37.7 ??C (99.9 ??F)] Heart Rate Heart Rate: (!) 115 Heart Rate: [74-151] Blood Pressure BP: (!) 145/96 BP: (97-165)/(50-99) Respiratory Rate Resp: 18 Resp: [10-25] SpO2 SpO2: 100 % SpO2: [91 %-100 %] Admit Weight 101.8 kg General: Extubated Pulmonary/Chest: Bilateral breath sounds Cardiovascular: nl s1/s2, RRR Abdomen: soft, non-tender Extremities: Wound vacs to suction Psychiatric: n/a Neurologic: RASS 0, following commands Diagnostics: 01/24/22 MR Brain: Acute globi pallidi infarctions. Scattered punctate infarctions in the cerebellar hemispheres. Ventilator: Pressure support Assessment: Alix Holland is a 31 y.o. gentleman admitted to the MICU on 01/23/22 after being found down and encephalopathic by family with verbal reports of Fentanyl ingestion; this was followed by witnessed in-hospital [place] cardiac arrest at the receiving ED (hyperkalemia at the time). He was also noted to have severe rhabdomyolysis with compartment syndrome and resultant ALTHEA. Now POD#4 fasciotomies of L thigh, calf forearm and wrist and POD#1 I+D SHAMAR ROBB. Treated for aspiration pneumonia versus MSSA CAP. He was also found to have asymptomatic COVID19 infection in admission testing, not currently receiving adjunct testing. Scattered punctate infarcts on MR brain and CT COW/carotids from 01/24/22 read as normal. Extubated PM of 01/26/22. Plan for return to return to OR on 01/28/22. He has high pain requirementsand tolerance - involving APS and currently on Fentanyl 50/hr from 200/hr and weaning off, Ketamine 0.5 and propofol 0.5; scheduled Dilaudid started overnight to assist with weaning off Fentanyl gtt. Plan: ??? Receiving TF, NPO at midnight; return to OR 01/28/22 ??? Unasyn for aspiration/MSSA coverage and until fasciotomy closure ??? APS consultation; continue current analgesia regimen as noted above ??? Convert to PO intake if passes bedside swallow ??? Matching wound vac output/running even overall IS PATIENT CRITICALLY ILL? Is there a high potential of sudden, clinically significant, or life threatening deterioration? Yes Is there a need for direct personal assessment and management to treat/prevent multiple vital organfailure/deterioration? Yes If this patient is not critically ill, I certify the patient requires continued in-patient hospitalization for [] PATIENT IS CRITICALLY ILL WITH THESE DIAGNOSES BEING MANAGED BY [facility] TEAM: ??? Acute toxic/metabolic encephalopathy ??? Rhabdomyolysis ??? Compartment syndrome ??? Acute hypoxemic respiratory failure ??? Aspiration pneumonia ??? Normocytic anemia ??? Thrombocytopenia ??? Hyponatremia ??? Transaminitis ??? Protein calorie malnutrition I personally performed 30 minutes of aggregate critical care time exclusive of procedures and teaching. This includes time spent during direct patient evaluation and reassessment, interpreting diagnostic tests, directing life and/or organ supporting interventions and documentation on the unit. Beck Sanz MD, 01/27/2022, 9:35 AM Interventional Pulmonology Section of Pulmonary & Critical Care Pager: [phone] Gail Long - 01/27/2022 6:14 AM EDT Images from the original note were not included. Critical Care Green Team Shared Progress Note Admitted: 01/23/2022 12:29 AM Hospital day: 4 ICU day: 3 ID: Alix Holland is a 31 y.o. male with PMH significant for hypertension, angioedema requiring intubation (unclear trigger), GERD, gastritis, esophagitis, and urachal cyst s/p I&D, and polysubstance use (including EtOH, cocaine, heroin)??admitted to ICU on 01/23/2022??with cardiac arrest s/p ROSC, likely due to hyperkalemia; incidentally found to be COVID-positive. Admitted to ICU on 01/23 after being found down 12-24 hours and encephalopathic by family with a reported Fentanyl ingestion. He hada VT cardiac arrest as he arrived at the OSH and received shock x1. He was noted to have severe rabdomyolysis with compartment syndrome and an ALTHEA. He had a CK >220,000, K 7.8. Hospital/ICU course has been significant for: ?? COVID + ?? (01/23) fasciotomies of L thigh, calf forearm, and wrist ?? CRRT for acute renal failure ?? CT head and MRI showed small infarcts in basal ganglia, MRI angiogram head/neck clear ?? Grew staph in sputum, on Unasyn IV since 01/23 24-hour events: ?? OR for I&D 01/26 ?? CK downtrending ?? Hypoglycemic, now on 250 mL/hr D5 LR ?? Extubated 01/26 evening to room air ?? Shivering and tachy overnight, afebrile-->Tylenol ?? Pain main issue overnight, on 50 mcg/min Fent/0.5 Ketamine/20 mg Oxy Q4 PRN/0.5 Precedex, APS consulted ?? 500 mg LR bolus for sustained tachycardia to 140's ?? CRRT running even Last value Range last 24 hrs Temperature Temp: 37.4 ??C (99.3 ??F) Temp: [35.8 ??C (96.4 ??F)-37.7 ??C (99.9 ??F)] Heart Rate Heart Rate: (!) 115 Heart Rate: [74-151] Blood Pressure BP: (!) 145/96 BP: (97-165)/(50-99) Respiratory Rate Resp: 18 Resp: [10-25] SpO2 SpO2: 100 % SpO2: [91 %-100 %] Art BP BP (Arterial Line): 107/67 BP (Arterial Line): -- Infusions: ??? dextrose 5% lactated ringers 250 mL/hr (01/27/22 08) ??? ketamine 0.5 mg/kg/hr (01/27/22 0937) ??? heparin (porcine) infusion 400 Units/hr (01/27/22 08) ??? bicarbonate CRRT with 4 mEq/L K+, 3 mEq/L Ca++ 5 each (01/27/22599) ??? sodium phosphate 15 mL/hr (01/27/22 08) ??? calcium gluconate Stopped (01/25/22 1204) ??? tube feeding diet 10 mL/hr at 01/27/22 08 ??? NORepinephrine Stopped (01/26/222016) ??? fentaNYL 50 mcg/hr (01/27/22 08) ??? dexmedeTOMIDine 0.5 mcg/kg/hr (01/27/22 08) Recent Labs 01/25/22 0622 01/24/22 0620 01/24/22 0016 PHART 7.45 7.48* 7.48* DFU4GWM 33* 29* 30* PO2ART 114* 68* 70* [id number] 22.4 21.1 22.0 Intake/Output Summary (Last 24 hours) at 01/27/2022 0941 Last data filed at 01/27/2022 0900 Gross per 24 hour Intake 39571.32 ml Output 7421 ml Net 3034.32 ml Output: 24 hours: 1100 mL [place], 4158 mL CRRT, 25 mL rectal tube, 90 mL urine For admission: +15,104.6 Physical Exam: General: Sleeping diaphoretic HEENT: no issues Neuro: Sleeping but wakens easily, RASS -1 to 0, 0.5 Precedex, 50 Fentanyl gtt, 0.5 Ketamine, follows commands bilaterally Pulmonary: BL clear breath sounds, intermittent non-productive cough (room air) Cardiovascular: S1, S1, No MRG, palpable pulses Abdomen: SNT, BS : Ayala, aneuric, on CRRT Extremities: wound vac dressings c/d/i, warm, well-perfused, good cap refill Skin: warm and dry Labs: Last 3 wbc, hgb, hct plt Recent Labs 01/26/22 0020 01/25/22 0030 01/24/22 0018 WBC 12.9* 8.6 11.4* HGB 11.5* 11.0* 14.8 HCT 33.2* 31.2* 41.7 PLATELET 115* 88* 136* Last 3 Lytes Recent Labs 01/27/22 0125 01/26/22 0020 01/25/22 1155 NA 135 137 137 K 4.4 4.6 4.7 CL 104 103 104 CO2 27 25 BUN 21* 26* 28* CREATININE 2.12* 1.89* 2.06* Last 3 LFTs Recent Labs 01/27/22 0125 01/26/22 0020 01/25/22 0030 AST 618* 710* 797* ALT 418* 591* 583* ALKPHOS 82 56 51 BILITOT 0.9 0.4 0.3 BILIDIR 0.8* 0.2 0.1 Last Ca, Mg, Phos Recent Labs 01/27/22 012 CALCIUM 7.7* PHOS 1.6* MAGNESIUM 0.72 Last 3 Coags Recent Labs 01/23/22 0155 01/23/22 0045 PT 14.4* Disregard INR 1.3 Disregard PTT 25 Disregard Last 3 ProBNP, Trop, CK Recent Labs 01/27/22 0536 01/27/22 0125 01/26/22 1819 01/24/22 0018 01/23/22 1810 01/23/22 1130 01/23/22 0600 CK 21,662* 22,236* 21,834* < > 158,050* 146,810* 158,930* TROPONINT -- -- -- -- 0.14* 0.24* 0.35* < > = values in this interval not displayed. Last 3 Lipids Recent Labs 01/26/22 0020 01/23/22 0045 04/26/211954 TRIG 359 273 104 Last CRP, SEDRATE Recent Labs 04/26/211954 CRP <3.0 SEDRATE <3 Microbiology: Microbiology Results (Last 30 days) Procedure Component Value Units Date/Time MRSA PCR [[id number]] Collected: 01/24/22 1310 Lab Status: Final result Specimen: Nasopharyngeal Swab Updated: 06/27/22 2224 MRSA Result Negative MRSA Interp -- Negative for methicillin-resistant Staphylococcus aureus (MRSA) This test was performed using the [employer]?? Dx System and the Xpert MRSA Assay. The MRSA target DNA was not detected. The sample processing control and probe check were valid. The performance of this test was determined by the [facility] [place] [facility]. It has been cleared by the U.S. Food and Drug Administration for clinical use. Comment: [VERIFIED DATE]01.25.22 Verified By:Alfonso Soto (Electronic Signature) MRSA PCR [[id number]] Collected: 01/23/22 1247 Lab Status: Final result Specimen: Nasopharyngeal Swab Updated: 01/25/22 1023 MRSA Result Negative MRSA Interp -- Negative for methicillin-resistant Staphylococcus aureus (MRSA) This test was performed using the [employer]pert?? Dx System and the Xpert MRSA Assay. The MRSA target DNA was not detected. The sample processing control and probe check were valid. The performance of this test was determined by the [facility] [place] [facility]. It has been cleared by the U.S. Food and Drug Administration for clinical use. Comment: [VERIFIED DATE]01.25.22 Verified By:Nora Shay (Electronic Signature) Lower Respiratory Culture Tracheal Aspirate [[id number]] (Abnormal) (Susceptibility) Collected: 01/23/22 1150 Lab Status: Final result Specimen: Tracheal Aspirate Updated: 01/25/22 1001 Lower Respiratory Culture -- Many Staphylococcus aureus Few mixed bacterial morphotypes suggestive of normal upper respiratory yessy Gram Stain -- Many Neutrophils No squamous epithelial cells Moderate Gram Positive Cocci Susceptibility Staphylococcus aureus VITEK 2 METHOD Clindamycin Sensitive Erythromycin Sensitive Gentamicin Sensitive [1] Oxacillin Sensitive [2] Tetracycline Sensitive Trimethoprim/Sulfa Sensitive Vancomycin Sensitive [1] Gentamicin is not appropriate for [place]-therapy. [2] Oxacillin (methicillin) susceptibility is a surrogate for the oral and parenteral cephalosporins, beta-lactam combination agents (amoxicillin-clavulanate, ampicillin-sulbactam and piperacillin-tazobactam) and carbapenem agents. It is NOT a surrogate for penicillin, ampicillin or piperacillin susceptibility. Linear View Blood culture [[id number]] Collected: 01/23/22 0600 Lab Status: Preliminary result Specimen: Blood Updated: 01/27/22 0701 Blood Culture No growth at 4 days. Blood culture [[id number]] Collected: 01/23/22 0126 Lab Status: Preliminary result Specimen: Blood Updated: 01/27/22 0701 Blood Culture No growth at 4 days. COVID-19 PCR [[id number]] (Abnormal) Collected: 01/23/22 0044 Lab Status: Final result Specimen: Tracheal Aspirate Updated: 01/23/22 1215 SARS-CoV-2 RNA Detected Comment: This result should be interpreted in combination with the clinical observations, patient history and epidemiological information in making a final diagnosis. For testing of asymptomatic individuals, assay performance characteristics and clinical utility have not been evaluated. Testing for SARS-CoV-2 (Severe acute respiratory syndrome coronavirus 2, formerly known as 2019 novel coronavirus or 2019-nCoV) to aid in the diagnosis of COVID-19 is performed using the [employer] SARS-CoV-2 Assay as authorized by the FDA Emergency Use Authorization (EUA). This EUA assay is intended for In-vitro Diagnostic (IVD) use with respiratory specimens such as nasopharyngeal swabs collected from individuals during the acute phase of infection. This assay is performed based on the instructions for use provided by [employer] and additional guidance provided by CDC and FDA. Testing is performed in the [facility] within the Department of Pathology and Laboratory Medicine at [facility], certified under the Clinical Laboratory Improvement Amendments of 1988 (CLIA), 42 U.S.C. 263a, to perform high complexity tests. Assay performance has been verified according to clinical laboratory regulatory requirements for use with specimens collected from individuals suspected of COVID-19. Test results are provided above. A result of Not Detected indicates that the viral RNA target is not present above the limit of detection, but does not preclude SARS-CoV-2 infection. False negative results may occur if a specimen is improperly collected, transported or handled; if amplification inhibitors are present; or if inadequate numbers of viral particles are present in the specimen. When a diagnostic test is negative, the possibility of a false negative result should be considered in the context of a patient's recent exposures and the presence of clinical signs and symptoms consistent with COVID-19. A result of Detected indicates that RNA from SARS-CoV-2 was detected and the patient is infected. As required or requested by public health authorities, positive specimens may be sent for additional testing. Positive and negative predictive values for this test are highly dependent on disease prevalence. A result of Invalid indicates that neither the viral RNA targets nor the internal control target was detected. An invalid result suggests the presence of inhibitors. Recollection and re-testing is recommended in the case of an invalid result. CDC COVID-19 criteria for testing on human specimens and clinical management guidance information are available at the CDC Coronavirus Disease 2019 (COVID-19) webpage under Information for Healthcare Professionals (https://www.cdc.gov/coronavirus/2019-ncov/hcp/index.html) Additional information about this and other EUA tests can be found in provider and patient fact sheets at the following FDA website: https://www.fda.gov/medical-devices/iuhfcrfxgyi-sbwcjwr-7068-xrojd-82-lgxvevuqq- mpj-chyilrocietrgs-kpafcaw-devices/oogox-tenpwfnstsf-ugvi SARS-Cov-2 RNA Source Trach Asp MRSA PCR [[id number]] Collected: 01/23/22 0044 Lab Status: Final result Specimen: Nasopharyngeal Swab Updated: 01/25/22 1024 MRSA Result Negative MRSA Interp -- Negative for methicillin-resistant Staphylococcus aureus (MRSA) This test was performed using the GeneXpert?? Dx System and the Xpert MRSA Assay. The MRSA target DNA was not detected. The sample processing control and probe check were valid. The performance of this test was determined by the [facility] [place] [facility]. It has been cleared by the U.S. Food and Drug Administration for clinical use. Comment: [VERIFIED DATE]01.25.22 Verified By:Nora Shay (Electronic Signature) Assessment: Alix Holland is a 31 year old male on hospital day 4 following a VT cardiac arrest in the setting of rhabdomayalsis and compartment syndrome and fasciotomy, with downtrending CK and LFTs but struggling with complex pain issues. Plan: Neuro: Pain, scattered punctate infarcts on MR brain ?? Thiamine, folic acid ?? Currently has: Fent gtt, Ketamine gtt, Oxy 20 mg Q4 PRN, lidocaine patches ?? Acute pain service consult ?? D/c PRN oxy, schedule PO Dilaudid with break-through PRN Dilaudid IV to wean off Fentanyl gtt, leave on Ketamine gtt, lidocaine patches ?? Touch base with APS Pulm: No acute issues ?? Tessalon pearls 3 days scheduled Q6 for cough CV: S/p cardiac arrest, tachycardia? ?? MAP >65, Levo at 1 related to sedation GI: Transaminitis ?? Regular diet now, remove NGT if getting enough nutrition ?? NPO at 0000 Renal/FEK: ALTHEA on CRRT ?? Continue to replace 1:1 of wound vac output ?? Goal euvolemia MSK: Rhabdomyalsis with compartment syndrome POD3 from fasciotomies ?? Wound vac x2 ?? I&D ?? Q4 neurovascular checks Hematology: No active issues ID: Currently on Unasyn for aspiration pneumonia vs MSSA PNA vs atelectasis, COVID+ w/out symptoms ?? In light of no s/s of bacterial lung process, switch to Ancef until wound closures ?? Contact and Airborne precautions Endocrine: hypoglycemia ?? Q4 fingersticks ?? 250 mL/hr LR with 5% dextrose continuous gtt Other prophylaxis: Heparin 5000 units for DVT prophylaxis Pantoprazole for GI prophylaxis HOB > 30 Chlorhexidine mouth care Mepliex to sacrum PT/OT: Lines/Tubes/Drains: Patient Lines/Drains/Airways Status Active Tubes/Lines/Drains Name Placement date Placement time Site Days Percutaneous Central Line - Triple Lumen 01/23/22 0600 internal jugular vein, right 01/23/22 0600 -- 4 Percutaneous Central Line - Triple Lumen 01/23/22 1625 internal jugular vein, left 01/23/22 1625 --4 Rectal Tube 01/23/22 0600 fecal management system 01/23/22 0600 -- 4 Urethral Catheter 01/23/22 0035 01/23/22 0035 -- 4 Naso/Oral Tube 01/23/22 0059 Cecil sump left nostril 01/23/22 0059 left nostril 4 Consults: ortho, neuro, ACS, wound, nephrology Decision Making: Code Status: Full Disposition: ICU Suggestions for changes: Gail Long January 27, 2022 Critical Care Green Team (pager [phone]) Parrish Esqueda MD - 01/27/2022 5:32 AM EDT ORTHOPAEDIC SURGERY INPATIENT PROGRESS NOTE Patient Name: Alix Holland Age: 31 y.o. Surgery/Issue: s/p repeat I+D SHAMAR ROBB Attending: Dr. Garcia Date of surgery: 01/23/2022 SUBJECTIVE / INTERVAL HISTORY: VSS aside from tachycardic in 120s to 140s. Satting well on 2L NC after extubation last night Endorsing pain in the LUE > LLE Asking about increased pain meds, on ketamine, precedex, and fentanyl drips Wound vacs to suction, canister recently replaced as full Patient denies chest pain, shortness of breath, nausea, vomiting, numbness/weakness. FOCUSED REVIEW OF SYSTEMS: as above. Active Hospital Problems Diagnosis ??? Rhabdomyolysis ??? Transaminitis ??? Aspiration pneumonia ??? SHAMAR ROBB compartment syndrome s/p fasciotimies, I+D 01/23/22 Jose ??? Asymptomatic COVID-19 virus infection ??? Lactic acidosis ??? ALTHEA (acute kidney injury) ??? Continuous renal replacement therapy (CRRT) for acute renal failure ??? Cardiac arrest Resolved Hospital Problems No resolved problems to display. Active Non-Hospital Problems Diagnosis ??? Angioedema ??? Chest pain ??? Smoker ??? Mandible fracture MEDICATIONS: ??? lidocaine (Lidoderm) 5% patch 3 patch AND lidocaine (Lidoderm) topical patch REMOVAL ??? pantoprazole (Protonix) injection 40 mg ??? docusate sodium (Colace) (10 mg/mL) oral liquid 100 mg AND sennosides (Senokot) (1.76 mg/mL)oral liquid 17.6 mg ??? polyethylene glycoL (Miralax) packet 17 g ??? dextrose 5% and lactated ringers infusion ??? naloxone (Narcan) (0.4 mg/mL) injection 0.4 mg ??? oxyCODONE (Roxicodone) tablet 20 mg ??? ketamine (Ketalar) (1 mg/mL) in sodium chloride 0.9% 250 mL infusion AND ketamine shift total and Settings verification ??? heparin (porcine) 50 units/mL in sodium chloride 0.45% 500 mL infusion ??? heparin (porcine) (1,000 units/mL) injection 1,000-10,000 Units ??? bicarbonate CRRT (NxSTAGE) 4 mEq/L K+, 3 mEq/L Ca++, 5,000 mL Solution 5 each ??? sodium phosphate (0.1 mMol/mL) in sodium chloride 0.9 % 150 mL infusion (CRRT) ??? calcium gluconate 15 g in sodium chloride 0.9% 250 mL infusion ??? tube feeding diet ??? glucose (Glutose) 40% oral geL OR dextrose 10% infusion OR glucagon (Glucagen) (1 mg/mL)injection solution 1 mg ??? chlorhexidine (Peridex) 0.12 % oral solution 15 mL ??? heparin (porcine) (5,000 units/1 mL) subcutaneous injection 5,000 Units ??? NORepinephrine (Levophed) (16 mcg/mL) in dextrose 5% 250 mL infusion ??? fentaNYL (PF) (50 mcg/mL) infusion syringe 50 mL AND [COMPLETED] fentaNYL (50 mcg/mL) bolus from infusion 25 mcg AND fentaNYL (50 mcg/mL) bolus from infusion 25-100 mcg AND fentaNYL shift total and Settings verification AND Assess ??? thiamine (Vitamin B-1) (100 mg/mL) injection 100 mg ??? folic acid (Vitamin B9) (5 mg/mL) injection 1 mg ??? dexmedeTOMIDine (Precedex) (4 mcg/mL) in sodium chloride 0.9% 100 mL infusion ??? midazolam (pf) (Versed) (1 mg/mL) injection 1 mg ??? ampicillin-sulbactam (Unasyn) 3 g vial attach to sodium chloride 0.9% 100 mL Mini-Bag Plus ??? dextrose 5% lactated ringers 250 mL/hr (01/27/22 0125) ??? ketamine 0.5 mg/kg/hr (01/27/22 6896) ??? heparin (porcine) infusion 400 Units/hr (01/26/22 616) ??? bicarbonate CRRT with 4 mEq/L K+, 3 mEq/L Ca++ 5 each (01/27/22 0000) ??? sodium phosphate 15 mL/hr (01/27/22 0339) ??? calcium gluconate Stopped (01/25/22 1204) ??? tube feeding diet 9,999 mL (01/26/222125) ??? NORepinephrine Stopped (01/26/222016) ??? fentaNYL 100 mcg/hr (01/27/22 0100) ??? dexmedeTOMIDine 0.5 mcg/kg/hr (01/27/22 0416) OBJECTIVE: Temp: [35.8 ??C (96.4 ??F)-37.7 ??C (99.9 ??F)] Heart Rate: [62-151] Resp: [7-25] BP: (96-165)/(50-93) Intake/Output Summary (Last 24 hours) at 01/27/2022 0532 Last data filed at 01/27/2022 0400 Gross per 24 hour Intake 9484.72 ml Output 5875 ml Net 3609.72 ml Body mass index is 35.07 kg/m??. PE: General: coming off of sedation, able to answer some questions CV: RRR assessed peripherally Resp: Breathing comfortably on 2L NC LUE: Dressing c/d/i, vac holding suction Sensory grossly intact to exposed hand, further sensory and motor exam limited by sedation/mental status Brisk cap refill in the hand LLE: Vac to posterior calf and vac to posterior thigh/buttock both holding suction LLE edematous to the knee Sensory to temperature grossly intact to thigh & foot, further sensory motor exam limited by sedation/mental status DP doppler present Lab Results Component Value Date NA 135 01/27/2022 K 4.4 01/27/2022 CL 104 01/27/2022 CO2 25 01/27/2022 BUN 21 (H) 01/27/2022 CREATININE 2.12 (H) 01/27/2022 GLUCOSE 112 01/27/2022 GLUCFASTING 151 (H) 04/26/2021 CALCIUM 7.7 (L) 01/27/2022 Lab Results Component Value Date WBC 12.9 (H) 01/26/2022 HGB 11.5 (L) 01/26/2022 HCT 33.2 (L) 01/26/2022 MCV 94.1 (H) 01/26/2022 PLATELET 115 (L) 01/26/2022 Lab Results Component Value Date INR 1.3 01/23/2022 IMAGING: N/A ASSESSMENT / PLAN: Alix Holland is a 31 y.o. male 1 Day Post-Op s/p I+D SHAMAR ROBB. Doing well post-operatively. Now extubated with improving mental status. Plan for return to OR tomorrow for repeat washout. Please keep NPO at MN. Activity: NWB LUE, NWB LLE DVT prophylaxis: Per primary Closure: Wound vacs (L forearm-1blk volar, 1blk dorsal L thigh-1blk, L leg-1blk) Dressing: WVac as above Antibiotics: continue ABx until fasciotomy sites closed Parrish Esqueda MD 01/27/2022 No future appointments. Associated attestation - Sigifredo Garcia MD - 01/27/2022 7:47 AM EDT I discussed the patient and the plan for the patient's care with the primary author and reviewed thedata. I have reviewed and agree with the findings and the plan of care as outlined above. Sigifredo Garcia MD Department of Orthopaedics 01/27/22 Jaylen Villela RN - 01/26/2022 8:25 PM EDTSummary: tele [facility] Images from the original note were not included. Nahed Green RT - 01/26/2022 8:21 PM EDT Pt received intubated on PSV 5/5/21% at the start of shift. Order to extubate was placed. Pt extubated at 2014 with MD at the bedside and placed on 2 L NC without complications. Will continue to monitor. Gail Long - 01/26/2022 2:13 PM EDT Images from the original note were not included. Critical Care Green Team Shared Progress Note Admitted: 01/23/2022 12:29 AM Hospital day: 3 ICU day: 3 ID: Alix Holland is a 31 y.o. male with PMH significant for hypertension, angioedema requiring intubation (unclear trigger), GERD, gastritis, esophagitis, and urachal cyst s/p I&D, and polysubstance use (including EtOH, cocaine, heroin)??who presents to the ICU on??01/23/2022??with cardiac arrests/p ROSC, likely due to hyperkalemia; incidentally found to be COVID-positive. Admitted to ICU on 01/23 after being found down 12-24 hours and encephalopathic by family with a reported Fentanyl ingestion. He had a VT cardiac arrest as he arrived at the OSH and received shock x1. He was noted to have severe rabdomyolysis with compartment syndrome and an ALTHEA. He had a CK >220,000, K 7.8. Hospital/ICU course has been significant for: ?? COVID + ?? (01/23) fasciotomies of L thigh, calf forearm, and wrist ?? CRRT for acute renal failure ?? CT head and MRI showed small infarcts in basal ganglia, MRI angiogram head/neck clear ?? Grew staph in sputum, on Unasyn IV since 01/23 24-hour events: ?? OR deferred from yesterday to today ?? Continues on minimal vent support and passed SBT ?? CK downtrending ?? Hypoglycemic Last value Range last 24 hrs Temperature Temp: 37.1 ??C (98.8 ??F) Temp: [36.1 ??C (97 ??F)-37.1 ??C (98.8 ??F)] Heart Rate Heart Rate: 83 Heart Rate: [43-104] Blood Pressure BP: 101/55 BP: (91-135)/(45-96) Respiratory Rate Resp: 10 Resp: [6-20] SpO2 SpO2: 99 % SpO2: [92 %-100 %] Art BP BP (Arterial Line): 107/67 BP (Arterial Line): -- Infusions: ??? dextrose 5% lactated ringers 250 mL/hr (01/26/22 1409) ??? propofoL 50 mcg/kg/min (01/26/22 1212) ??? heparin (porcine) infusion 400 Units/hr (01/26/22 0600) ??? bicarbonate CRRT with 4 mEq/L K+, 3 mEq/L Ca++ 5 each (01/26/22 0549) ??? sodium phosphate ??? calcium gluconate Stopped (01/25/22 1204) ??? tube feeding diet Stopped (01/24/22 2300) ??? NORepinephrine 1 mcg/min (01/26/22 1409) ??? fentaNYL 200 mcg/hr (01/26/22 1400) ??? dexmedeTOMIDine 0.5 mcg/kg/hr (01/26/22 0826) Ventilator Settings: PS 5/5, 21% Recent Labs 01/25/22 0622 01/24/22 0620 01/24/22 0016 PHART 7.45 7.48* 7.48* QBO4OXP 33* 29* 30* PO2ART 114* 68* 70* GST3JYN 22.4 21.1 22.0 Intake/Output Summary (Last 24 hours) at 01/26/2022 1413 Last data filed at 01/26/2022 1400 Gross per 24 hour Intake 5568.03 ml Output 5694 ml Net -125.97 ml Output: Physical Exam: General: Intubated, awake, interactive HEENT: no issues Neuro: RASS 0 on 30 Propofol, 0.5 Precedex, 125 Fentanyl, follows commands bilaterally briskly, intermittent pain mitigated by Fentanyl boluses Pulmonary: BL breath sounds, crackles, minimal secretions inline Cardiovascular: S1, S1, No MRG, palpable pulses Abdomen: SNT, BS : Ayala, aneuric, on CRRT Extremities: wound vac dressings c/d/i, warm, well-perfused, good cap refill Skin: warm and dry Labs: Last 3 wbc, hgb, hct plt Recent Labs 01/26/22 0020 01/25/22 0030 01/24/22 0018 WBC 12.9* 8.6 11.4* HGB 11.5* 11.0* 14.8 HCT 33.2* 31.2* 41.7 PLATELET 115* 88* 136* Last 3 Lytes Recent Labs 01/26/22 0020 01/25/22 1155 01/25/22 0030 NA 137 137 135 K 4.6 4.7 5.0 CL 103 104 105 CO2 27 25 24 BUN 26* 28* 30* CREATININE 1.89* 2.06* 2.39* Last 3 LFTs Recent Labs 01/26/22 0020 01/25/22 0030 01/24/22 0018 AST 710* 797* 1,181* ALT 591* 583* 682* ALKPHOS 56 51 65 BILITOT 0.4 0.3 0.5 BILIDIR 0.2 0.1 0.2 Last Ca, Mg, Phos Recent Labs 01/26/22 0020 CALCIUM 8.3* PHOS 3.0 MAGNESIUM 0.85 Last 3 Coags Recent Labs 01/23/22 0155 01/23/22 0045 PT 14.4* Disregard INR 1.3 Disregard PTT 25 Disregard Last 3 ProBNP, Trop, CK Recent Labs 01/26/22 1222 01/26/22 0615 01/25/22 1800 01/24/22 0018 01/23/22 1810 01/23/22 1130 01/23/22 0600 CK 25,802* 27,357* 32,675* < > 158,050* 146,810* 158,930* TROPONINT -- -- -- -- 0.14* 0.24* 0.35* < > = values in this interval not displayed. Last 3 Lipids Recent Labs 01/26/22 0020 01/23/22 0045 04/26/211954 TRIG 359 273 104 Last CRP, SEDRATE Recent Labs 04/26/211954 CRP <3.0 SEDRATE <3 Microbiology: Microbiology Results (Last 30 days) Procedure Component Value Units Date/Time MRSA PCR [[id number]] Collected: 01/24/22 1310 Lab Status: Final result Specimen: Nasopharyngeal Swab Updated: 01/25/222223 MRSA Result Negative MRSA Interp -- Negative for methicillin-resistant Staphylococcus aureus (MRSA) This test was performed using the Simtrolpert?? Dx System and the Xpert MRSA Assay. The MRSA target DNA was not detected. The sample processing control and probe check were valid. The performance of this test was determined by the [facility] [place] [facility]. It has been cleared by the U.S. Food and Drug Administration for clinical use. Comment: [VERIFIED DATE]01.25.22 Verified By:Alfonso Soto (Electronic Signature) MRSA PCR [[id number]] Collected: 01/23/22 1247 Lab Status: Final result Specimen: Nasopharyngeal Swab Updated: 01/25/22 1023 MRSA Result Negative MRSA Interp -- Negative for methicillin-resistant Staphylococcus aureus (MRSA) This test was performed using the GeneTresoritpert?? Dx System and the Xpert MRSA Assay. The MRSA target DNA was not detected. The sample processing control and probe check were valid. The performance of this test was determined by the [facility] [place] [facility]. It has been cleared by the U.S. Food and Drug Administration for clinical use. Comment: [VERIFIED DATE]01.25.22 Verified By:Nora Shay (Electronic Signature) Lower Respiratory Culture Tracheal Aspirate [[id number]] (Abnormal) (Susceptibility) Collected: 01/23/22 1150 Lab Status: Final result Specimen: Tracheal Aspirate Updated: 01/25/22 1001 Lower Respiratory Culture -- Many Staphylococcus aureus Few mixed bacterial morphotypes suggestive of normal upper respiratory yessy Gram Stain -- Many Neutrophils No squamous epithelial cells Moderate Gram Positive Cocci Susceptibility Staphylococcus aureus VITEK 2 METHOD Clindamycin Sensitive Erythromycin Sensitive Gentamicin Sensitive [1] Oxacillin Sensitive [2] Tetracycline Sensitive Trimethoprim/Sulfa Sensitive Vancomycin Sensitive [1] Gentamicin is not appropriate for [place]-therapy. [2] Oxacillin (methicillin) susceptibility is a surrogate for the oral and parenteral cephalosporins, beta-lactam combination agents (amoxicillin-clavulanate, ampicillin-sulbactam and piperacillin-tazobactam) and carbapenem agents. It is NOT a surrogate for penicillin, ampicillin or piperacillin susceptibility. Linear View Blood culture [[id number]] Collected: 01/23/22 0600 Lab Status: Preliminary result Specimen: Blood Updated: 01/26/22 0701 Blood Culture No growth at 3 days. Blood culture [[id number]] Collected: 01/23/22 0126 Lab Status: Preliminary result Specimen: Blood Updated: 01/26/22 0701 Blood Culture No growth at 3 days. COVID-19 PCR [[id number]] (Abnormal) Collected: 01/23/22 0044 Lab Status: Final result Specimen: Tracheal Aspirate Updated: 01/23/22 1215 SARS-CoV-2 RNA Detected Comment: This result should be interpreted in combination with the clinical observations, patient history and epidemiological information in making a final diagnosis. For testing of asymptomatic individuals, assay performance characteristics and clinical utility have not been evaluated. Testing for SARS-CoV-2 (Severe acute respiratory syndrome coronavirus 2, formerly known as 2019 novel coronavirus or 2019-nCoV) to aid in the diagnosis of COVID-19 is performed using the ActiveSec m SARS-CoV-2 Assay as authorized by the FDA Emergency Use Authorization (EUA). This EUA assay is intended for In-vitro Diagnostic (IVD) use with respiratory specimens such as nasopharyngeal swabs collected from individuals during the acute phase of infection. This assay is performed based on the instructions for use provided by [employer] and additional guidance provided by [facility] and FDA. Testing is performed in the [facility] within the Department of Pathology and Laboratory Medicine at [facility], certified under the Clinical Laboratory Improvement Amendments of 1988 (CLIA), 42 U.S.C. 263a, to perform high complexity tests. Assay performance has been verified according to clinical laboratory regulatory requirements for use with specimens collected from individuals suspected of COVID-19. Test results are provided above. A result of Not Detected indicates that the viral RNA target is not present above the limit of detection, but does not preclude SARS-CoV-2 infection. False negative results may occur if a specimen is improperly collected, transported or handled; if amplification inhibitors are present; or if inadequate numbers of viral particles are present in the specimen. When a diagnostic test is negative, the possibility of a false negative result should be considered in the context of a patient's recent exposures and the presence of clinical signs and symptoms consistent with COVID-19. A result of Detected indicates that RNA from SARS-CoV-2 was detected and the patient is infected. As required or requested by public health authorities, positive specimens may be sent for additional testing. Positive and negative predictive values for this test are highly dependent on disease prevalence. A result of Invalid indicates that neither the viral RNA targets nor the internal control target was detected. An invalid result suggests the presence of inhibitors. Recollection and re-testing is recommended in the case of an invalid result. CDC COVID-19 criteria for testing on human specimens and clinical management guidance information are available at the CDC Coronavirus Disease 2019 (COVID-19) webpage under Information for Healthcare Professionals (https://www.cdc.gov/coronavirus/2019-ncov/hcp/index.html) Additional information about this and other EUA tests can be found in provider and patient fact sheets at the following FDA website: https://www.fda.gov/medical-devices/jpunjknywdq-gurqnwg-2073-saksh-38-pqblkabli- rdq-ecxegpaqwxwgvs-gyuaajp-devices/uqvjx-qieidmnkgxd-qpmo SARS-Cov-2 RNA Source Trach Asp MRSA PCR [[id number]] Collected: 01/23/22 0044 Lab Status: Final result Specimen: Nasopharyngeal Swab Updated: 01/25/22 1024 MRSA Result Negative MRSA Interp -- Negative for methicillin-resistant Staphylococcus aureus (MRSA) This test was performed using the [employer]?? Dx System and the Xpert MRSA Assay. The MRSA target DNA was not detected. The sample processing control and probe check were valid. The performance of this test was determined by the [facility] [place] [facility]. It has been cleared by the U.S. Food and Drug Administration for clinical use. Comment: [VERIFIED DATE]01.25.22 Verified By:Nora Shay (Electronic Signature) Assessment: Alix Holland is a 31 year old male on hospital day 3 following a VT cardiac arrest in the setting of rhabdomayalsis and compartment syndrome and fasciotomy, going to OR for I&D today. Plan: Neuro: Scattered punctate infarcts on MR brain, Sedated on propofol, fentanyl, Precedex ?? Thiamine, folic acid ?? Wean sedation as tolerated for RASS -1 to 0 Pulm: Aspiration pneumonia vs MSSA PNA vs atelectasis ?? Unasyn since 01/23 CV: S/p cardiac arrest, no acute issues ?? MAP >65, Levo at 1 related to sedation ?? GI: Transaminitis ?? NPO give meds ?? TF off for surgery, turn back on if not going to OR today Renal/FEK: ALTHEA on CRRT ?? Continue to replace 1:1 of wound vac output ?? Goal euvolemia MSK: Rhabdomyalsis with compartment syndrome POD3 from fasciotomies ?? Wound vac x2 ?? I&D today ?? Q4 neurovascular checks Hematology: No active issues ID: COVID, Staph in sputum ?? Consider transitioning from Unasyn to Ancef until would closure ?? Contact and Airborne precautions Endocrine: hypoglycemia ?? Q4 fingersticks ?? 250 mL/hr LR with 5% dextrose continuous gtt Other prophylaxis: Heparin 5000 units for DVT prophylaxis Pantoprazole for GI prophylaxis HOB > 30 Chlorhexidine mouth care Mepliex to sacrum PT/OT: Lines/Tubes/Drains: Patient Lines/Drains/Airways Status Active Tubes/Lines/Drains Name Placement date Placement time Site Days Percutaneous Central Line - Triple Lumen 01/23/22 0600 internal jugular vein, right 01/23/22 0600 -- 3 Percutaneous Central Line - Triple Lumen 01/23/22 1625 internal jugular vein, left 01/23/22 1625 --3 Rectal Tube 01/23/22 0600 fecal management system 01/23/22 0600 -- 3 Urethral Catheter 01/23/22 0035 01/23/22 0035 -- 3 Naso/Oral Tube 01/23/22 0059 Cecil sump left nostril 01/23/22 0059 left nostril 3 ETT Airway 01/23/22 0116 01/23/22 0116 -- 3 Consults: ortho Decision Making: Code Status: Full Disposition: ICU Suggestions for changes: Gail Long January 26, 2022 Critical Care Green Team (pager [phone]) Nahed Fraser MD - 01/26/2022 11:32 AM EDT ORTHOPAEDIC SURGERY INPATIENT PROGRESS NOTE Patient Name: Alix Holland Age: 31 y.o. Surgery/Issue: s/p I+D SHAMAR ROBB Attending: Dr. Garcia Date of surgery: 01/23/2022 SUBJECTIVE / INTERVAL HISTORY: Endorsing pain in the LLE moreso than the LUE. Patient denies chest pain, shortness of breath, nausea, vomiting, numbness/weakness. FOCUSED REVIEW OF SYSTEMS: as above. Active Hospital Problems Diagnosis ??? Rhabdomyolysis ??? Transaminitis ??? Aspiration pneumonia ??? LIZEGLENE compartment syndrome s/p fasciotimies, I+D 01/23/22 Jose ??? Asymptomatic COVID-19 virus infection ??? Lactic acidosis ??? ALTHEA (acute kidney injury) ??? Continuous renal replacement therapy (CRRT) for acute renal failure ??? Cardiac arrest Resolved Hospital Problems No resolved problems to display. Active Non-Hospital Problems Diagnosis ??? Angioedema ??? Chest pain ??? Smoker ??? Mandible fracture MEDICATIONS: ??? [START ON 01/27/2022] pantoprazole (Protonix) injection 40 mg ??? docusate sodium (Colace) (10 mg/mL) oral liquid 100 mg AND sennosides (Senokot) (1.76 mg/mL)oral liquid 17.6 mg ??? polyethylene glycoL (Miralax) packet 17 g ??? dextrose 5% and lactated ringers infusion ??? propofoL (Diprivan) (10 mg/mL) infusion AND propofoL (Diprivan) (10 mg/mL) bolus from infusion 10 mg ??? heparin (porcine) 50 units/mL in sodium chloride 0.45% 500 mL infusion ??? heparin (porcine) (1,000 units/mL) injection 1,000-10,000 Units ??? bicarbonate CRRT (NxSTAGE) 4 mEq/L K+, 3 mEq/L Ca++, 5,000 mL Solution 5 each ??? sodium phosphate (0.1 mMol/mL) in sodium chloride 0.9 % 150 mL infusion (CRRT) ??? calcium gluconate 15 g in sodium chloride 0.9% 250 mL infusion ??? tube feeding diet ??? glucose (Glutose) 40% oral geL OR dextrose 10% infusion OR glucagon (Glucagen) (1 mg/mL)injection solution 1 mg ??? chlorhexidine (Peridex) 0.12 % oral solution 15 mL ??? heparin (porcine) (5,000 units/1 mL) subcutaneous injection 5,000 Units ??? NORepinephrine (Levophed) (16 mcg/mL) in dextrose 5% 250 mL infusion ??? fentaNYL (PF) (50 mcg/mL) infusion syringe 50 mL AND [COMPLETED] fentaNYL (50 mcg/mL) bolus from infusion 25 mcg AND fentaNYL (50 mcg/mL) bolus from infusion 25-100 mcg AND fentaNYL shift total and Settings verification AND Assess ??? thiamine (Vitamin B-1) (100 mg/mL) injection 100 mg ??? folic acid (Vitamin B9) (5 mg/mL) injection 1 mg ??? dexmedeTOMIDine (Precedex) (4 mcg/mL) in sodium chloride 0.9% 100 mL infusion ??? midazolam (pf) (Versed) (1 mg/mL) injection 1 mg ??? ampicillin-sulbactam (Unasyn) 3 g vial attach to sodium chloride 0.9% 100 mL Mini-Bag Plus ??? dextrose 5% lactated ringers 250 mL/hr (01/26/22 1104) ??? propofoL 40 mcg/kg/min (01/26/22 0907) ??? heparin (porcine) infusion 400 Units/hr (01/26/22 0600) ??? bicarbonate CRRT with 4 mEq/L K+, 3 mEq/L Ca++ 5 each (01/26/22 0549) ??? sodium phosphate ??? calcium gluconate Stopped (01/25/22 1204) ??? tube feeding diet Stopped (01/24/22 2300) ??? NORepinephrine 1.013 mcg/min (01/26/22 0700) ??? fentaNYL 200 mcg/hr (01/26/22 1000) ??? dexmedeTOMIDine 0.5 mcg/kg/hr (01/26/22 0826) OBJECTIVE: Temp: [35.9 ??C (96.6 ??F)-36.8 ??C (98.2 ??F)] Heart Rate: [43-104] Resp: [6-20] BP: (91-135)/(45-96) Intake/Output Summary (Last 24 hours) at 01/26/2022 1132 Last data filed at 01/26/2022 1100 Gross per 24 hour Intake 5029.46 ml Output 5084 ml Net -54.54 ml Body mass index is 34.59 kg/m??. PE: General: coming off of sedation, able to answer some questions CV: RRR assessed peripherally Resp: Breathing comfortably on 2L NC LUE: Dressing c/d/i, vac holding light suction Sensory intact to thumb, further sensory and motor exam limited by sedation. Brisk cap refill in the hand LLE: Vac to posterior calf and vac to posterior thigh/buttock both holding suction LLE edematous to the knee Sensory to temperature grossly intact to thigh, further sensory motor exam limited by sedation DP doppler present Lab Results Component Value Date NA 137 01/26/2022 K 4.6 01/26/2022 CL 103 01/26/2022 CO2 27 01/26/2022 BUN 26 (H) 01/26/2022 CREATININE 1.89 (H) 01/26/2022 GLUCOSE 104 01/26/2022 GLUCFASTING 151 (H) 04/26/2021 CALCIUM 8.3 (L) 01/26/2022 Lab Results Component Value Date WBC 12.9 (H) 01/26/2022 HGB 11.5 (L) 01/26/2022 HCT 33.2 (L) 01/26/2022 MCV 94.1 (H) 01/26/2022 PLATELET 115 (L) 01/26/2022 Lab Results Component Value Date INR 1.3 01/23/2022 IMAGING: N/A ASSESSMENT / PLAN: Alix Holland is a 31 y.o. male 3 Days Post-Op s/p I+D SHAMAR ROBB. Doing well post-operatively. Discharge pending evaluation by PT/OT on POD1. Activity: NWB CEZAR, NWSal IBANEZ DVT prophylaxis: Per primary Closure: Wound vacs (L forearm-1blk volar, 1blk dorsal L thigh-1blk, L leg-1blk) Dressing: WVac as above Antibiotics: continue ABx until fasciotomy sites closed Nahed Fraser MD 01/26/2022 No future appointments. Galdino Cotter, RT - 01/26/2022 10:08 AM EDT AMV Protocol: Yes SBT Protocol: Yes Vent Settings: PSV PS 5 PEEP 5 21% Airway: 8.0 @ 26 cm at the Teeth. Skin Integrity: WDL Breath Sounds: Grossly clear Secretions: Assessment / Events / Plan of the Day: Patient was received on charted settings and was supported with MV for duration of shift. Patient continued with comfortable WOB and RR during shift. Continue to support patient with MV. Galdino Cotter, RT Alcira Dwyer MD - 01/26/2022 9:49 AM EDT Patient is seen in the ICU on CVVH for rhabdomyolysis. He continues to be oliguric. BP 111/50 Pulse 86 Temp 36.8 ??C (98.2 ??F) (Axillary) Resp 11 Ht 182.9 cm (6') Wt 115.7 kg (255 lb 1.2 oz) SpO2 99% BMI 34.59 kg/m?? I/O last 3 completed shifts: In: 7931.4 [I.V.:7553.4; NG/GT:30; IV Piggyback:348] Out: 6652 [Urine:78; Other:6524; Stool:50] CBC Lab Results Component Value Date WBC 12.9 (H) 01/26/2022 Hemoglobin 11.5 (L) 01/26/2022 Hematocrit 33.2 (L) 01/26/2022 Platelets 115 (L) 01/26/2022 Lab Results Component Value Date Sodium 137 01/26/2022 Potassium 4.6 01/26/2022 Chloride 103 01/26/2022 CO2 27 01/26/2022 BUN 26 (H) 01/26/2022 Creatinine 1.89 (H) 01/26/2022 Glucose Lvl 104 01/26/2022 His laboratories are all in good range. He is requiring full support with CVVH. BackerBeck MD - 01/26/2022 8:00 AM EDT [facility] [place] SECTION OF PULMONARY & CRITICAL CARE MEDICINE Patient seen and examined, and data reviewed, on critical care rounds. Events in Last 24 Hours: CK down-trending, hypoglycemic this AM, some fluctuation in WBC (12 from 8 from 12) Review of Systems: A 12 point ROS was negative aside from as listed in the HPI. Objective: Last value Range last 24 hrs Temperature Temp: 36.4 ??C (97.5 ??F) Temp: [35.9 ??C (96.6 ??F)-36.4 ??C (97.5 ??F)] Heart Rate Heart Rate: 66 Heart Rate: [43-95] Blood Pressure BP: 107/65 BP: (91-133)/(45-96) Respiratory Rate Resp: 15 Resp: [6-20] SpO2 SpO2: 100 % SpO2: [93 %-100 %] Admit Weight 101.8 kg General: intubated Pulmonary/Chest: Bilateral breath sounds Cardiovascular: nl s1/s2, RRR Abdomen: soft, non-tender Extremities: Wound vacs to suction Psychiatric: n/a Neurologic: RASS -2 to +1 Diagnostics: 01/24/22 MR Brain: Acute globi pallidi infarctions. Scattered punctate infarctions in the cerebellar hemispheres. Ventilator: Pressure support Assessment: Alix Holland is a 31 y.o. gentleman admitted to the MICU on 01/23/22 after being found down and encephalopathic by family with verbal reports of Fentanyl ingestion; this was followed by witnessed in-hospital [place] cardiac arrest at the receiving ED (hyperkalemia at the time). He was also noted to have severe rhabdomyolysis with compartment syndrome and resultant ALTHEA. Now POD#3 fasciotomies of L thigh, calf forearm and wrist. CK down-trending. Being treated for aspiration pneumonia versus MSSA CAP; vent settings have remained minimal/stable. He was also found to have asymptomatic COVID19 infection in a dmission testing, not currently receiving adjunct testing. He is following commands on R side. Remains intubated/sedated on minimal settings. Scattered punctate infarcts on MR brain however neurology entertaining other non-stroke etiologies of these radiographic findings - CT COW/carotids from 01/24/22read as normal. Was supposed to go to OR yesterday, remains pending for OR. Barrier to extubation atthis point is completion of his OR requirements. Remains on CRRT with minimal UO. On NE at 1 mcg/minwhich is Propofol dependent/not in shock. Plan: ??? Receiving Unasyn for aspiration/MSSA coverage ??? Continue antibiotics until closure of fasciotomy sites ? ? To OR for I&D/possible fasciotomy closure vs VAC exchange ??? Remains intubated for pending return to OR today ??? Ready for extubation when pending OR requirements satisfied ??? Needs to be resumed on enteral nutrition when back from OR ??? Add dextrose into his LR replacement fluids ??? Continue daily SBT's ??? Matching wound vac output/running even overall IS PATIENT CRITICALLY ILL? Is there a high potential of sudden, clinically significant, or life threatening deterioration? Yes Is there a need for direct personal assessment and management to treat/prevent multiple vital organfailure/deterioration? Yes If this patient is not critically ill, I certify the patient requires continued in-patient hospitalization for [] PATIENT IS CRITICALLY ILL WITH THESE DIAGNOSES BEING MANAGED BY [facility] TEAM: ??? Acute toxic/metabolic encephalopathy ??? Rhabdomyolysis ??? Compartment syndrome ??? Acute hypoxemic respiratory failure ??? Aspiration pneumonia ??? Normocytic anemia ??? Thrombocytopenia ??? Hyponatremia ??? Transaminitis ??? Protein calorie malnutrition I personally performed 35 minutes of aggregate critical care time exclusive of procedures and teaching. This includes time spent during direct patient evaluation and reassessment, interpreting diagnostic tests, directing life and/or organ supporting interventions and documentation on the unit. Beck Sanz MD, 01/26/2022, 10:44 AM Interventional Pulmonology Section of Pulmonary & Critical Care Pager: [phone] Kris Dean MD - 01/26/2022 6:01 AM EDT ORTHOPAEDIC SURGERY INPATIENT PROGRESS NOTE Patient Name: Alix Holland Age: 31 y.o. Surgery/Issue: L forearm, thigh, buttock, leg compartment syndrome s/p fasciotomies Attending: Jose Date of surgery: 01/23/2022 SUBJECTIVE / INTERVAL HISTORY: Alix remains intubated and sedated, but per senior staff consultant he is moving bilateral upper and lower extremities spontaneously and following commands. Lactate 1.3, Hg 11.5, CK remains elevated but downtrending to 32,675. NAEON. Limited motor or sensory exam possible this AM. FOCUSED REVIEW OF SYSTEMS: as above. Active Hospital Problems Diagnosis ??? Rhabdomyolysis ??? Transaminitis ??? Aspiration pneumonia ??? SHAMAR ROBB compartment syndrome s/p fasciotimies, I+D 01/23/22 Garcia ??? Asymptomatic COVID-19 virus infection ??? Lactic acidosis ??? ALTHEA (acute kidney injury) ??? Continuous renal replacement therapy (CRRT) for acute renal failure ??? Cardiac arrest Resolved Hospital Problems No resolved problems to display. Active Non-Hospital Problems Diagnosis ??? Angioedema ??? Chest pain ??? Smoker ??? Mandible fracture MEDICATIONS: ??? propofoL (Diprivan) (10 mg/mL) infusion AND propofoL (Diprivan) (10 mg/mL) bolus from infusion 10 mg ??? heparin (porcine) 50 units/mL in sodium chloride 0.45% 500 mL infusion ??? heparin (porcine) (1,000 units/mL) injection 1,000-10,000 Units ??? bicarbonate CRRT (NxSTAGE) 4 mEq/L K+, 3 mEq/L Ca++, 5,000 mL Solution 5 each ??? sodium phosphate (0.1 mMol/mL) in sodium chloride 0.9 % 150 mL infusion (CRRT) ??? calcium gluconate 15 g in sodium chloride 0.9% 250 mL infusion ??? tube feeding diet ??? lactated ringers infusion ??? glucose (Glutose) 40% oral geL OR dextrose 10% infusion OR glucagon (Glucagen) (1 mg/mL)injection solution 1 mg ??? insulin lispro (HumaLOG;Admelog) (100 unit/mL) subcutaneous injection vial 2-8 Units ??? chlorhexidine (Peridex) 0.12 % oral solution 15 mL ??? pantoprazole (Protonix) injection 40 mg ??? heparin (porcine) (5,000 units/1 mL) subcutaneous injection 5,000 Units ??? NORepinephrine (Levophed) (16 mcg/mL) in dextrose 5% 250 mL infusion ??? fentaNYL (PF) (50 mcg/mL) infusion syringe 50 mL AND [COMPLETED] fentaNYL (50 mcg/mL) bolus from infusion 25 mcg AND fentaNYL (50 mcg/mL) bolus from infusion 25-100 mcg AND fentaNYL shift total and Settings verification AND Assess ??? thiamine (Vitamin B-1) (100 mg/mL) injection 100 mg ??? folic acid (Vitamin B9) (5 mg/mL) injection 1 mg ??? dexmedeTOMIDine (Precedex) (4 mcg/mL) in sodium chloride 0.9% 100 mL infusion ??? midazolam (pf) (Versed) (1 mg/mL) injection 1 mg ??? ampicillin-sulbactam (Unasyn) 3 g vial attach to sodium chloride 0.9% 100 mL Mini-Bag Plus ??? propofoL 30 mcg/kg/min (01/26/22599) ??? heparin (porcine) infusion 400 Units/hr (01/26/22599) ??? bicarbonate CRRT with 4 mEq/L K+, 3 mEq/L Ca++ 5 each (01/26/22 0549) ??? sodium phosphate ??? calcium gluconate Stopped (01/25/22 1204) ??? tube feeding diet Stopped (01/24/22 2300) ??? NORepinephrine 1 mcg/min (01/26/22599) ??? fentaNYL 200 mcg/hr (01/26/22599) ??? dexmedeTOMIDine 0.5 mcg/kg/hr (01/26/22599) OBJECTIVE: Temp: [35.7 ??C (96.3 ??F)-36.4 ??C (97.5 ??F)] Heart Rate: [43-95] Resp: [6-20] BP: (91-133)/(45-96) Intake/Output Summary (Last 24 hours) at 01/26/2022 0601 Last data filed at 01/26/2022 0600 Gross per 24 hour Intake 5020.96 ml Output 4763 ml Net 257.96 ml BMI: Weight: 115.7 kg (255 lb 1.2 oz) (01/26/22 0000) BMI (Calculated): 30.43 BMI Classification: Obese Body mass index is 34.59 kg/m??. PE: General: Intubated and sedated CV: RRR on monitor Resp: Mechanically ventilated LUE: Wound vac to suction without evidence of leak No motor or sensory exam possible Brisk capillary refill distally, fingers warm/well-perfused Doppler radial signal LLE: Wound vacs to suction without evidence of leak No motor or sensory exam possible Brisk capillary refill distally, foot warm/well-perfused DP, PT signals doppler Lab Results Component Value Date NA 137 01/26/2022 K 4.6 01/26/2022 CL 103 01/26/2022 CO2 27 01/26/2022 BUN 26 (H) 01/26/2022 CREATININE 1.89 (H) 01/26/2022 GLUCOSE 104 01/26/2022 GLUCFASTING 151 (H) 04/26/2021 CALCIUM 8.3 (L) 01/26/2022 Lab Results Component Value Date WBC 12.9 (H) 01/26/2022 HGB 11.5 (L) 01/26/2022 HCT 33.2 (L) 01/26/2022 MCV 94.1 (H) 01/26/2022 PLATELET 115 (L) 01/26/2022 Lab Results Component Value Date INR 1.3 01/23/2022 ASSESSMENT / PLAN: Alix Holland is a 31 y.o. male 3 Days Post-Op L forearm, thigh, buttock, leg fasciotomy and wound vacs. Improving but in critical condition. NPO for repeat I+D, vac change vs closure today. Please continue antibiotics until closure of fasciotomy sites. - Activity: NWB LUE, NWB LLE - Antibiotics: rec Ancef - DVT px: Per primary - Diet: NPO MN Kris Dean MD 01/26/2022 No future appointments. Associated attestation - Sigifredo Garcia MD - 01/27/2022 3:11 PM EDT Patient personally seen and examined by me. I discussed the patient and the plan for the patient's care with the primary author and reviewed the data. I have reviewed and agree with the findings and the plan of care as outlined below. Plan: return to OR today for I&D, wound VAC exchanges. Sigifredo Garcia MD Department of Orthopaedics 01/27/22 Destinee Haskins RN - 01/25/2022 9:07 PM EDTSummary: TeleICU rhythm strip Images from the original note were not included. Sinus jonathan Nahed Green RT - 01/25/2022 8:23 PM EDT AMV Protocol: Yes SBT Protocol: Yes SBT: Passed Vent Settings: Ventilator Mode: PS/CPAP PEEP Set: 5 FiO2: 21 % PSV: 5 Ventilator Measurements: Resp: (!) 7 Vt Spontaneous: 1512 Ve: 8 SpO2: 99 % EtCO2: 14 mmHg Airway: 8.0 @ 26 cm at the Teeth. Skin Integrity: WDL Breath Sounds: diminished Secretions: moderate/garza-white/thick Assessment / Events / Plan of the Day: keep pt on minimal settings as tolerated per protocol and do an SBT in the morning. No vent changes were made. Will continue to monitor and support. RT Arlene Galdino Cotter RT - 01/25/2022 11:01 AM EDT AMV Protocol: Yes SBT Protocol: Yes Vent Settings: PSV PS 5, PEEP 5, 21% Airway: 8.0 @ 26 cm at the Teeth. Skin Integrity: WDL Breath Sounds: Grossly clear Secretions: Scant Assessment / Events / Plan of the Day: Patient was received on charted settings and was supported with MV for duration of shift. Patient would occasionally take exceptionally large Vt's, [id number] >2 liters. This was not typical however, and for the majority of the [facility] patient was comfortable with MV support. Continue to support patient with MV. RT Jameel Alcira Dwyer MD - 01/25/2022 9:46 AM EDT Patient is seen and examined in intensive care unit on CVVH. We are seeing the patient for acute kidney injury related to rhabdomyolysis. BP 128/84 Pulse 62 Temp 36.1 ??C (97 ??F) (Axillary) Resp 9 Ht 182.9 cm (6') Wt 113 kg (249 lb 1.9 oz) SpO2 95% BMI 33.79 kg/m?? I/O last 3 completed shifts: In: 69784 [I.V.:9488; NG/GT:97; IV Piggyback:904] Out: 5394 [Urine:171; Other:4948; Stool:275] CBC Lab Results Component Value Date WBC 8.6 01/25/2022 Hemoglobin 11.0 (L) 01/25/2022 Hematocrit 31.2 (L) 01/25/2022 Platelets 88 (L) 01/25/2022 Lab Results Component Value Date Sodium 137 01/25/2022 Potassium 4.7 01/25/2022 Chloride 104 01/25/2022 CO2 25 01/25/2022 BUN 28 (H) 01/25/2022 Creatinine 2.06 (H) 01/25/2022 Glucose Lvl 129 01/25/2022 Patient is making small amounts of urine, 50 cc over 24 hours. All his parameters are in good range. Backer, Beck Boykin MD - 01/25/2022 7:53 AM EDT [facility] [place] SECTION OF PULMONARY & CRITICAL CARE MEDICINE Patient seen and examined, and data reviewed, on critical care rounds. Events in Last 24 Hours: Stable overnight, mental status improving, plans for or today Review of Systems: A 12 point ROS was negative aside from as listed in the HPI. Objective: Last value Range last 24 hrs Temperature Temp: 36.3 ??C (97.3 ??F) Temp: [36.2 ??C (97.2 ??F)-36.7 ??C (98.1 ??F)] Heart Rate Heart Rate: 61 Heart Rate: [55-95] Blood Pressure BP: 128/84 BP: -- Respiratory Rate Resp: 11 Resp: [8-22] SpO2 SpO2: 96 % SpO2: [93 %-100 %] Admit Weight 101.8 kg General: intubated Pulmonary/Chest: Bilateral breath sounds Cardiovascular: nl s1/s2, RRR Abdomen: soft, non-tender Extremities: Wound vacs to suction Psychiatric: n/a Neurologic: RASS -2 to +1 Diagnostics: 01/24/22 MR Brain: Acute globi pallidi infarctions. Scattered punctate infarctions in the cerebellar hemispheres. Ventilator: Pressure support Assessment: Alix Holland is a 31 y.o. gentleman admitted on 01/23/22 after being found down and encephalopathicby family with verbal reports of Fentanyl ingestion; this was followed by witnessed in-hospital [place] cardiac arrest at the receiving ED (hyperkalemia at the time). He was also noted to have severe rhabdomyolysis with compartment syndrome and resultant ALTHEA. Now POD#2 fasciotomies of L thigh, calf forearmand wrist. He is currently on CRRT. CK is down-trending. Staph aureus identified in sputum with possible lower lobe consolidation versus atelectasis for which he is receiving Unasyn with resistance testing pending and MRSA PCR testing not resulted; vent settings have remained minimal/stable. He was also found to have asymptomatic COVID19 infection in admission testing, not currently receiving adjuncttesting. He is following commands on R side. Remains intubated/sedated on minimal settings. Scattered punctate infarcts on MR brain however neurology entertaining other non-stroke etiologies of these radiographic findings and CTA COW completed overnight with report pending. Plan to return to OR today.He is 11+L positive for admission, continuing to receive LR 200/hr and remains oliguric with <200mL UO last 24 hours. Plan: ??? Receiving Unasyn for aspiration/staph coverage ??? Await staph sensitivities/MRSA PCR ??? Continue antibiotics until closure of fasciotomy sites ? ? To OR for I&D/possible fasciotomy closure and VAC exchange ??? Remains intubated for pending return to OR today; completion of imaging ??? Will work towards extubation after return to from OR ??? Will change IV fluid plan to match wound VAC output/run net even IS PATIENT CRITICALLY ILL? Is there a high potential of sudden, clinically significant, or life threatening deterioration? Yes Is there a need for direct personal assessment and management to treat/prevent multiple vital organfailure/deterioration? Yes If this patient is not critically ill, I certify the patient requires continued in-patient hospitalization for [] PATIENT IS CRITICALLY ILL WITH THESE DIAGNOSES BEING MANAGED BY [facility] TEAM: ??? Acute toxic/metabolic encephalopathy ??? Rhabdomyolysis ??? Compartment syndrome ??? Acute hypoxemic respiratory failure ??? Aspiration pneumonia ??? Normocytic anemia ??? Hyponatremia ??? Transaminitis ??? Protein calorie malnutrition I personally performed 40 minutes of aggregate critical care time exclusive of procedures and teaching. This includes time spent during direct patient evaluation and reassessment, interpreting diagnostic tests, directing life and/or organ supporting interventions and documentation on the unit. Beck Sanz MD, 01/25/2022, 7:53 AM MICU Attending Pulmonary & Critical Care Pager: [phone] Kris Dean MD - 01/25/2022 5:55 AM EDT ORTHOPAEDIC SURGERY INPATIENT PROGRESS NOTE Patient Name: Alix Holland Age: 31 y.o. Surgery/Issue: L forearm, thigh, buttock, leg compartment syndrome s/p fasciotomies Attending: Jose Date of surgery: 01/23/2022 SUBJECTIVE / INTERVAL HISTORY: Alix remains intubated and sedated, but per senior staff consultant he is moving bilateral upper and lower extremities spontaneously. Lactate improved to 1.9, continues on CRRT. Hg 11.8, CK remains elevated 41,000. AFVSS, NAEON. Limited motor or sensory exam possible this AM. FOCUSED REVIEW OF SYSTEMS: as above. Active Hospital Problems Diagnosis ??? Rhabdomyolysis ??? Transaminitis ??? Aspiration pneumonia ??? SHAMAR ROBB compartment syndrome s/p fasciotimies, I+D 01/23/22 Jose ??? Asymptomatic COVID-19 virus infection ??? Lactic acidosis ??? ALTHEA (acute kidney injury) ??? Continuous renal replacement therapy (CRRT) for acute renal failure ??? Cardiac arrest Resolved Hospital Problems No resolved problems to display. Active Non-Hospital Problems Diagnosis ??? Angioedema ??? Chest pain ??? Smoker ??? Mandible fracture MEDICATIONS: ??? heparin (porcine) 50 units/mL in sodium chloride 0.45% 500 mL infusion ??? heparin (porcine) (1,000 units/mL) injection 1,000-10,000 Units ??? bicarbonate CRRT (NxSTAGE) 4 mEq/L K+, 3 mEq/L Ca++, 5,000 mL Solution 5 each ??? sodium phosphate (0.1 mMol/mL) in sodium chloride 0.9 % 150 mL infusion (CRRT) ??? calcium gluconate 15 g in sodium chloride 0.9% 250 mL infusion ??? tube feeding diet ??? lactated ringers infusion ??? glucose (Glutose) 40% oral geL OR dextrose 10% infusion OR glucagon (Glucagen) (1 mg/mL)injection solution 1 mg ??? insulin lispro (HumaLOG;Admelog) (100 unit/mL) subcutaneous injection vial 2-8 Units ??? chlorhexidine (Peridex) 0.12 % oral solution 15 mL ??? pantoprazole (Protonix) injection 40 mg ??? heparin (porcine) (5,000 units/1 mL) subcutaneous injection 5,000 Units ??? NORepinephrine (Levophed) (16 mcg/mL) in dextrose 5% 250 mL infusion ??? fentaNYL (PF) (50 mcg/mL) infusion syringe 50 mL AND [COMPLETED] fentaNYL (50 mcg/mL) bolus from infusion 25 mcg AND fentaNYL (50 mcg/mL) bolus from infusion 25-100 mcg AND fentaNYL shift total and Settings verification AND Assess ??? thiamine (Vitamin B-1) (100 mg/mL) injection 100 mg ??? folic acid (Vitamin B9) (5 mg/mL) injection 1 mg ??? dexmedeTOMIDine (Precedex) (4 mcg/mL) in sodium chloride 0.9% 100 mL infusion ??? midazolam (pf) (Versed) (1 mg/mL) injection 1 mg ??? ampicillin-sulbactam (Unasyn) 3 g vial attach to sodium chloride 0.9% 100 mL Mini-Bag Plus ??? lactated ringers infusion ??? heparin (porcine) infusion 400 Units/hr (01/25/22 0500) ??? bicarbonate CRRT with 4 mEq/L K+, 3 mEq/L Ca++ 5 each (01/25/22 0553) ??? sodium phosphate ??? calcium gluconate 10 mL/hr (01/24/22 1700) ??? tube feeding diet Stopped (01/24/22 2300) ??? NORepinephrine Stopped (01/24/22 1857) ??? fentaNYL 150 mcg/hr (01/25/22 0500) ??? dexmedeTOMIDine 1.2 mcg/kg/hr (01/25/22 0500) ??? lactated Ringers 200 mL/hr (01/25/22 0021) OBJECTIVE: Temp: [36.2 ??C (97.2 ??F)-36.9 ??C (98.4 ??F)] Heart Rate: [56-95] Resp: [8-22] Intake/Output Summary (Last 24 hours) at 01/25/2022 0555 Last data filed at 01/25/2022 0500 Gross per 24 hour Intake 7003.71 ml Output 3654 ml Net 3349.71 ml BMI: Weight: 106.5 kg (234 lb 12.6 oz) (01/24/22 0600) BMI (Calculated): 30.43 BMI Classification: Obese Body mass index is 31.84 kg/m??. PE: General: Intubated and sedated CV: RRR on monitor Resp: Mechanically ventilated LUE: Wound vac to suction without evidence of leak No motor or sensory exam possible Brisk capillary refill distally, fingers warm/well-perfused Doppler radial signal LLE: Wound vacs to suction without evidence of leak No motor or sensory exam possible Brisk capillary refill distally, foot warm/well-perfused Doppler DP, PT signals Lab Results Component Value Date NA 135 01/25/2022 K 5.0 01/25/2022 CL 105 01/25/2022 CO2 24 01/25/2022 BUN 30 (H) 01/25/2022 CREATININE 2.39 (H) 01/25/2022 GLUCOSE 129 01/25/2022 GLUCFASTING 151 (H) 04/26/2021 CALCIUM 8.2 (L) 01/25/2022 Lab Results Component Value Date WBC 8.6 01/25/2022 HGB 11.0 (L) 01/25/2022 HCT 31.2 (L) 01/25/2022 MCV 92.0 01/25/2022 PLATELET 88 (L) 01/25/2022 Lab Results Component Value Date INR 1.3 01/23/2022 ASSESSMENT / PLAN: Alix Holland is a 31 y.o. male 2 Days Post-Op L forearm, thigh, buttock, leg fasciotomy and wound vacs. Improving but in critical condition. NPO for repeat I+D, vac change tomorrow. Please continue antibiotics until closure of fasciotomy sites. - Activity: NWB LUE, NWB LLE - Antibiotics: rec Ancef - DVT px: Per primary - Diet: NPO MN Kris Dean MD 01/25/2022 No future appointments. Associated attestation - Sigifredo Garcia MD - 01/25/2022 7:31 AM EDT Patient personally seen and examined by me. I discussed the patient and the plan for the patient's care with the primary author and reviewed the data. I have reviewed and agree with the findings and the plan of care as outlined below. 31M POD2 s/p left forearm volar and dorsal fasciotomies, carpal tunnel release, left buttock and thigh fasciotomies, and left lower leg fasciotomies. Patient intubated and sedated. CK down trending, lactate normalized. Plan for return to OR today for I&D, possible closure vs VAC exchanges. Sigifredo Garcia MD Department of Orthopaedics 01/25/22 Nicole Chung RN - 01/24/2022 9:28 PM EDTSummary: TeleICU Strip Images from the original note were not included. Nahed Green RT - 01/24/2022 8:22 PM EDT AMV Protocol: Yes SBT Protocol: Yes SBT: not done due to high agitation and excessive gagging on the tube Vent Settings: Ventilator Mode: PS/CPAP PEEP Set: 5 FiO2: 21 % PSV: 5 Ventilator Measurements: Resp: 14 Vt Spontaneous: 546 Ve: 9.2 SpO2: 93 % EtCO2: 32 mmHg Airway: 8.0 @ 26 cm at the Teeth. Skin Integrity: WDL Breath Sounds: diminished Secretions: small/garza/thick Assessment / Events / Plan of the Day: keep pt on minimal settings per protocol as tolerated and do an SBT in the morning. Increased FIO2 to 35% due to desat from coughing and gagging excessively on the tube. Will continue to monitor and support. RT Arlene Mikaela Crook MD - 01/24/2022 5:14 PM EDT Brief Consult Follow up Note Alix Holland is a 31 y.o. male with PMHx of HTN, angioedema (previous intubation needed, unclear trigger), GERD, esophagitis, polysubstance use who presented to ICU on 01/23 in transfer following being found down at home although conscious, cardiac arrest s/p ROSC in the setting of rhabdo and hyperkalemia; found to be COVID-19 positive. Due to the metabolic derangement requiring CRRT. Neurology consult regarding CTH results. MRI Brain found to have diffusion restriction within globus pallidus, which can suggest stroke (however it does not have a specific affected vascular territory) as well as this could be more likely dueto toxicmetabolic changes. Patient was in cardiac arrest with severe metabolic dearrengements and Ptcould also have a mixed picture of vascular and metabolic causes for imaging findings. TTE is unrevealing. ?? Please obtain further stroke workup: - No acute intervention needed now - Please obtain CTA Discussed with Dr. Vince Scott MD PGY2 Neurology Coty Jensen - 01/24/2022 3:51 PM EDT Images from the original note were not included. Critical Care Green Team Progress Note Admitted: 01/23/2022 12:29 AM Hospital day: 1 ICU day: 1 ID: Alix Holland??is a 31 y.o.??male??with PMH significant for hypertension, angioedema requiring intubation (unclear trigger), GERD, gastritis, esophagitis, and urachal cyst s/p I&D, and polysubstance use (including EtOH, cocaine, heroin)??who presents to the ICU on??01/23/2022??with cardiac arrest s/p ROSC, likely due to hyperkalemia; incidentally found to be COVID-positive. ?? Hospital/ICU course has been significant for: ?? S/p cardiac arrest, likely 2/2 to hyperkalemia in the setting of rhabdomyolysis and ALTHEA ?? Compartment syndrome of LUE ?? Compensated AGMA 2/2 uremia and lactic acidosis ?? Transaminitis 2/2 shock liver ?? ALTHEA requiring CRRT ?? Incidental dx of COVID-19 infection ?? Aspiration Pneumonia/Pneumonitis, +Staph aureus 24-hour events: ?? To OR 01/23 AM for fasciotomy of RFA, L posterior thigh and L posterior calf ?? CVVH initiated prior to going to OR yesterday and continued post-op. Pre- filter Heparin added overnight. ?? Briskly following commands on R side Last value Range last 24 hrs Temperature Temp: 36.6 ??C (97.9 ??F) Temp: [36.6 ??C (97.9 ??F)-37.4 ??C (99.3 ??F)] Heart Rate Heart Rate: 66 Heart Rate: [66-95] Blood Pressure BP: 128/84 BP: -- Respiratory Rate Resp: 10 Resp: [10-22] SpO2 SpO2: 96 % SpO2: [92 %-100 %] Art BP BP (Arterial Line): 114/63 BP (Arterial Line): (88-126)/(52-68) Infusions: ??? heparin (porcine) infusion Stopped (01/24/22 1430) ??? bicarbonate CRRT with 4 mEq/L K+, 3 mEq/L Ca++ 5 each (01/24/22 1119) ??? sodium phosphate ??? calcium gluconate 10 mL/hr (01/24/22 0941) ??? tube feeding diet ??? NORepinephrine 2 mcg/min (01/24/22 1100) ??? fentaNYL 100 mcg/hr (01/24/22 1419) ??? dexmedeTOMIDine 1 mcg/kg/hr (01/24/22 1323) ??? lactated Ringers 200 mL/hr (01/24/22 1347) Ventilator Settings: PSV 5/5 21% Recent Labs 01/24/22 0620 01/23/22 1810 01/23/22 1156 PHART 7.48* 7.46* 7.43 [id number] 29* 31* 32* PO2ART 68* 79* 86 [id number] 21.1 21.5 20.8 Intake/Output Summary (Last 24 hours) at 01/24/2022 1551 Last data filed at 01/24/2022 1400 Gross per 24 hour Intake 7740.91 ml Output 4315 ml Net 3425.91 ml Output: UO 363cc Arm wound vac 100cc Thigh wound vac 725cc Calf wound vac 100cc Physical Exam: General: Young adult intubated male lying in bed currently sedated. HEENT: NC/AT; conjugate gaze, MMM and pink; ETT/OGT in situ; trachea midline. Neuro: Sedated on precedex/fentanyl gtts; +RISHABH 3mm. Pulmonary: Chest symmetric; no retractions or use of accessory muscles; respirations regular, unlabored. No crepitus or subcutaneous air. Anterolateral lungs CTA bilaterally. Cardiovascular: S1/S2 RRR, no m/r/g. Abdomen: Abdomen rounded, symmetric; no visible masses or lesions; soft; ND; no guarding; no rigidity; BS normoactive x4 quads. : Ayala catheter in situ draining brown urine. Extremities: LUE wrapped in TAMIE wrap w/ wound vac to -125mmHg sx draining ss output, fingers cool, cap refill 4sec, +2 L radial pulse by doppler; LLE w/ posterior thigh fasciotomy site w/ wound vac to -125mmHg sx draining ss output, leg cool and pale but anterior compartment soft, cap refill 4sec, +2 L DP and +1 L PT pulse by doppler; RUE warm, cap refill <3sec, +2 R palpated radial pulse; RLE pale and cool, mottling of the knee and foot, cap refill 4sec, compartments soft anteriorly and posteriorly, +2 DP and PT pulse by doppler. Skin: Pale, warm, dry. Labs: Last 3 wbc, hgb, hct plt Recent Labs 01/24/22 0018 01/23/22 0449 01/23/22 0045 WBC 11.4* 12.1* 22.6* HGB 14.8 17.6* 21.5* HCT 41.7 50.3* 63.2* PLATELET 136* 184 269 Last 3 Lytes Recent Labs 01/24/22 0625 01/24/22 0018 01/23/22 1810 01/23/22 1130 01/23/22 0449 01/23/22 0045 04/28/21 0400 NA 136 138 138 136 142 < > 142 142 K 4.4 4.7 4.7 5.0 5.6* < > 7.6* 3.5 CL 103 103 103 103 107 < > 102 108* CO2 22 21* 21* 20* 19* < > 17* 23 BUN -- 31* -- -- -- 47* 14 CREATININE -- 3.00* 2.88* 3.56* < > 4.42* 0.67* < > = values in this interval not displayed. Last 3 LFTs Recent Labs 01/24/22 0018 01/23/22 0045 04/26/21 1955 AST 1,181* >700* 19 ALT 682* >700* 28 ALKPHOS 65 71 53 BILITOT 0.5 0.4 0.3 BILIDIR 0.2 0.2 -- Last Ca, Mg, Phos Recent Labs 01/24/22 0018 CALCIUM 8.0* PHOS 4.5 MAGNESIUM 0.92 Last 3 Coags Recent Labs 01/23/22 0155 01/23/22 0045 PT 14.4* Disregard INR 1.3 Disregard PTT 25 Disregard Last 3 ProBNP, Trop, CK Recent Labs 01/24/22 1214 01/24/22 0625 01/24/22 0018 01/23/22 1810 01/23/22 1130 01/23/22 0600 CK 61,457* 84,528* 84,860* 158,050* 146,810* 158,930* TROPONINT -- -- -- 0.14* 0.24* 0.35* Microbiology: Microbiology Results (Last 30 days) Procedure Component Value Units Date/Time Lower Respiratory Culture Tracheal Aspirate [[id number]] (Abnormal) Collected: 01/23/22 1150 Lab Status: Preliminary result Specimen: Tracheal Aspirate Updated: 01/24/22 0848 Lower Respiratory Culture -- Many Staphylococcus aureus Few mixed bacterial morphotypes suggestive of normal upper respiratory yessy Gram Stain -- Many Neutrophils No squamous epithelial cells Moderate Gram Positive Cocci Blood culture [[id number]] Collected: 01/23/22 0600 Lab Status: Preliminary result Specimen: Blood Updated: 01/24/22 0701 Blood Culture No growth at 1 day. Blood culture [[id number]] Collected: 01/23/22 0126 Lab Status: Preliminary result Specimen: Blood Updated: 01/24/22 0701 Blood Culture No growth at 1 day. COVID-19 PCR [[id number]] (Abnormal) Collected: 01/23/22 0044 Lab Status: Final result Specimen: Tracheal Aspirate Updated: 01/23/22 1215 SARS-CoV-2 RNA Detected Comment: This result should be interpreted in combination with the clinical observations, patient history and epidemiological information in making a final diagnosis. For testing of asymptomatic individuals, assay performance characteristics and clinical utility have not been evaluated. Testing for SARS-CoV-2 (Severe acute respiratory syndrome coronavirus 2, formerly known as 2019 novel coronavirus or 2019-nCoV) to aid in the diagnosis of COVID-19 is performed using the [employer] m SARS-CoV-2 Assay as authorized by the FDA Emergency Use Authorization (EUA). This EUA assay is intended for In-vitro Diagnostic (IVD) use with respiratory specimens such as nasopharyngeal swabs collected from individuals during the acute phase of infection. This assay is performed based on the instructions for use provided by [employer] and additional guidance provided by CDC and FDA. Testing is performed in the [facility] within the Department of Pathology and Laboratory Medicine at [facility], certified under the Clinical Laboratory Improvement Amendments of 1988 (CLIA), 42 U.S.C. 263a, to perform high complexity tests. Assay performance has been verified according to clinical laboratory regulatory requirements for use with specimens collected from individuals suspected of COVID-19. Test results are provided above. A result of Not Detected indicates that the viral RNA target is not present above the limit of detection, but does not preclude SARS-CoV-2 infection. False negative results may occur if a specimen is improperly collected, transported or handled; if amplification inhibitors are present; or if inadequate numbers of viral particles are present in the specimen. When a diagnostic test is negative, the possibility of a false negative result should be considered in the context of a patient's recent exposures and the presence of clinical signs and symptoms consistent with COVID-19. A result of Detected indicates that RNA from SARS-CoV-2 was detected and the patient is infected. As required or requested by public health authorities, positive specimens may be sent for additional testing. Positive and negative predictive values for this test are highly dependent on disease prevalence. A result of Invalid indicates that neither the viral RNA targets nor the internal control target was detected. An invalid result suggests the presence of inhibitors. Recollection and re-testing is recommended in the case of an invalid result. CDC COVID-19 criteria for testing on human specimens and clinical management guidance information are available at the CDC Coronavirus Disease 2019 (COVID-19) webpage under Information for Healthcare Professionals (https://www.cdc.gov/coronavirus/2019-ncov/hcp/index.html) Additional information about this and other EUA tests can be found in provider and patient fact sheets at the following FDA website: https://www.fda.gov/medical-devices/gypnelstrqe-cqwajku-0961-dgakp-37-iiyamxsyk- hby-tsxlcfmdiychsx-kaaikmi-devices/cvnec-dnahgxfwfsb-ugjn SARS-Cov-2 RNA Source Trach Asp ECG: Telemetry shows NSR. Imaging: Results for orders placed or performed during the hospital encounter of 01/23/22 XR Chest One View (Exam End: 01/23/2022 2:10 AM) Impression ET tube with its tip in appropriate position. Thank you for letting us participate in the care of this patient. If you are a health care provider and have any questions regarding this report, please contact the number below. For patients who have questions please contact the health nursing care attendant that requested your imaging first. Head wo Contrast (Generic) (Exam End: 01/23/2022 3:58 AM) Impression Globi pallidi infarcts. Mild cerebral edema. Thank you for letting us participate in the care of this patient. If you are a health care provider and have any questions regarding this report, please contact the number below. For patients who have questions please contact the health nursing care attendant that requested your imaging first. Electronically signed by: Rex Addison MD, [facility] ([phone]), at 01/23/2022 4:27 AM XR Abdomen 1 view (Generic) (Exam End: 01/23/2022 2:10 AM) Impression The tip of the NG tube is in the distal stomach with redundant tubing looped in the fundus. Thank you for letting us participate in the care of this patient. If you are a health care provider and have any questions regarding this report, please contact the number below. For patients who have questions please contact the health nursing care attendant that requested your imaging first. Electronically signed by: Jacky Mello MD, [facility] ([phone]), at 01/23/2022 8:[address] Lower Extremity wo Contrast Left (Generic) (Exam End: 01/23/2022 3:58 AM) Impression LEFT 1. No osseous abnormality 2. The clinically palpable deep soft tissue mass is not identified with certainty. Equivocal ill-defined low density within vastus intermedialis muscle represents muscle injury, lesion or related to technique. 3. Subcutaneous and deep fascial edema of the LEFT lower pelvis and upper thigh. Findings are nonspecific and could be related to any combination of fasciitis, cellulitis, trauma or neoplastic infiltration. Consider supplementary MRI if the concern for soft tissue mass remains high. Thank you for letting us participate in the care of this patient. If you are a health care provider and have any questions regarding this report, please contact the number below. For patients who have questions please contact the health nursing care attendant that requested your imaging first. Electronically signed by: Melita Mills MD, [facility] ([phone]), at 01/24/2022 1:[address] Chest wo Contrast (Generic) (Exam End: 01/23/2022 3:58 AM) Impression FINDINGS/IMPRESSION: Airways: Endotracheal tube tip 3.1 cm above the maia. Lungs/Pleura: Partial collapse of the LLL dorsally/medially. Mild dependent atelectasis bilaterally. Mediastinum/Kolton: Unremarkable. Cardiac/Vasculature: Unremarkable. Included Upper Abdomen: Esophagogastric tube loops within the fundus, terminating within the region of the pylorus. Fluid within the included upper small and large bowel segments. Osseous Structures: No acute abnormality identified. Thank you for letting us participate in the care of this patient. If you are a health care provider and have any questions regarding this report, please contact the number below. For patients who have questions please contact the health nursing care attendant that requested your imaging first. Electronically signed by: Rex Addison MD, [facility] ([phone]), at 01/23/2022 4:[address] Upper Extremity w Contrast Left (Exam End: 01/23/2022 3:58 AM) Impression Diffuse muscular hypoattenuation from the mid forearm into the hand could be sequela of edema/myositis or ischemia. Thank you for letting us participate in the care of this patient. If you are a health care provider and have any questions regarding this report, please contact the number below. For patients who have questions please contact the health nursing care attendant that requested your imaging first. Electronically signed by: Rex Addison MD, [facility] ([phone]), at 01/23/2022 4:58 AM XR Forearm Left (Generic) (Exam End: 01/23/2022 6:32 AM) Impression FINDINGS/IMPRESSION: No acute fracture of the radius or ulna seen. Diffuse soft tissue stranding and edema of the forearm. Preliminary report signed by: Alcira Queen at 01/23/2022 6:55 AM I have personally reviewed the image(s) and the resident's interpretation and agree with the findings, Rex Addison MD at 01/23/2022 7:14 AM Thank you for letting us participate in the care of this patient. If you are a health care provider and have any questions regarding this report, please contact the number below. For patients who have questions please contact the health nursing care attendant that requested your imaging first. Electronically signed by: Rex Addison MD, [facility] ([phone]), at 01/23/2022 7:14 AM XR Chest One View (Exam End: 01/23/2022 6:32 AM) Impression Right IJ central venous line with catheter tip projecting over the lower SVC. Preliminary report signed by: Alcira Queen at 01/23/2022 6:43 AM I have personally reviewed the image(s) and the resident's interpretation and agree with the findings, Rex Addison MD at 01/23/2022 6:56 AM Thank you for letting us participate in the care of this patient. If you are a health care provider and have any questions regarding this report, please contact the number below. For patients who have questions please contact the health nursing care attendant that requested your imaging first. Electronically signed by: Rex Addison MD, [facility] ([phone]), at 01/23/2022 6:56 AM XR Femur 2 views Left (Generic) (Exam End: 01/23/2022 2:04 PM) Impression No significant osseous finding. Thank you for letting us participate in the care of this patient. If you are a health care provider and have any questions regarding this report, please contact the number below. For patients who have questions please contact the health nursing care attendant that requested your imaging first. Electronically signed by: Lisandro Pruett MD, [facility] ([phone]), at 01/23/2022 2:10 PM XR Tibia Fibula Left (Generic) (Exam End: 01/23/2022 2:04 PM) Impression No bony abnormality seen. Thank you for letting us participate in the care of this patient. If you are a health care provider and have any questions regarding this report, please contact the number below. For patients who have questions please contact the health nursing care attendant that requested your imaging first. Electronically signed by: Jacky Mello MD, [facility] ([phone]), at 01/23/2022 2:07 PM XR Chest One View (Exam End: 01/23/2022 4:54 PM) Impression Lines and tubes are in position as above. Left internal jugular line is present with tip in the superior vena cava. Thank you for letting us participate in the care of this patient. If you are a health care provider and have any questions regarding this report, please contact the number below. For patients who have questions please contact the health nursing care attendant that requested your imaging first. Electronically signed by: Lisandro Pruett MD, [facility] ([phone]), at 01/23/2022 5:01 PM Assessment: Alix is 31yo male who presents s/p pVT cardiac arrest, likely 2/2 to hyperkalemia in thesetting of rhabdomyolysis and ALTHEA. Hyperkalemia resolved on CRRT. CK had trended up slightly yesterday evening, however, LR had been included in CRRT balances and therefore the patient was not getting this fluid resuscitation. CRRT run +200cc overnight w/ improved CK this AM. Patient is post-op w/ RFAand LLE fasciotomy sites, wound vacs in place. NV checks remain stable. Plan per ortho is to return to the OR tomorrow. Elevated transaminases on admission, likely 2/2 to shock liver post arrest. Hepatitis A, B, and C negative, HIV negative. Patient has completed NAC treatment. Tracheal aspirate cx +Staph aureus. Antibiotics narrowed to ceftriaxone per sensitivities for likely aspiration pneumonia vs. Pneumonitis. Currently has very low oxygen requirements on PSV, lungs remains clear, afebrile. TTE showed mild global hypokinesis w/ EF 46% likely 2/2 to cardiac arrest. Troponins downtrended over thelast 24hrs. Plan: Neuro: ?globi pallidi infarcts; Cerebral edema; Polysubstance abuse ?? Daily SAT ?? MRI brain w/o contrast later today per neuro recs. ?? Neurology following, appreciate their input. ?? Continue Precedexl/fentanyl for sedation. ?? Maintain normothermia. HOB>30 degrees. ?? Monitor for ETOH and opioid withdrawal ?? Pulm: COVID-19 infection; Aspiration pneumonia vs. Pneumonitis ?? Continue PSV. Will defer extubation today as pt is returning to the OR tomorrow w/ ortho. ?? Continue Unasyn 3g q8h ?? Very little oxygen requirement and ventilator support required. Chest imaging showed no signs of active COVID PNA. D/c Decadron to support wound healing. ?? CV: Global hypokinesis w/ EF 46% ?? Monitor hemodynamics. Maintain MAP >65. GI: Transaminitis; ETOH abuse ?? Trend LFTs daily. ?? IV thiamine 100mg daily ?? Folic acid 1mg daily ?? Monitor for ETOH withdrawal ?? IVP Protonix 40mg BID for GI PPx ?? Consult to nutrition. Initiate trickle TFs but hold at 0000 for OR tomorrow. ?? Renal/FEK: Rhabdomyolysis; Hyperkalemia; Hypocalcemia; ALTHEA; AGMA ?? CRRT for severe hyperkalemia. Run even to +500cc/hr in the setting of rhabdomyolysis. ?? Pre-filter heparin initiated today. ?? Consult to nephrology, appreciate their input. ?? Monitor UO ?? Avoid nephrotoxic drugs ?? MSK: LUE/LLE compartment syndrome -Maintain wound vacs to -125mmHg -q4h NV checks -Trend CK q6h -LR @200cc/hr -Ortho recommends Ancef for abx coverage. Pt already on Unasyn, which we will continue. ?? Hematology: ?? No coagulopathy/anemia. ?? SQ Heparin 5,000 units q8h for DVT PPx ?? ID: Aspiration PNA vs. Pneumonitis w/ tracheal aspirate +Staph aureus ?? Blood cx remain NGTD ?? Continue Unasyn, sensitivities pending. ?? MRSA PCR resent and pending. ?? Patient will need ongoing abx coverage for fasciotomies per orthos recs. Will ensure that he has appropriate coverage with any future abx changes. ?? Endocrine: ?? SSI per protocol w/ q4h BG checks. Goal BG 140-160. Father updated via telephone this afternoon. ?? Other prophylaxis: SQ Heparin for DVT prophylaxis IVP Protonix for GI prophylaxis HOB > 30 : Y Chlorhexidine mouth care: Y Mepliex to sacrum: Y PT/OT: Y ?? Lines/Tubes/Drains: RIJ trialysis line; LIJ TLC; ETT; NGT; Ayala; Rectal tube ?? Consults: Neurology, Nephrology, Orthopedics Decision Making: Father Code Status: Full Code Coty Jensen January 24, 2022 Critical Care Green Team (pager [phone]) Angelina Reynoso MD - 01/24/2022 3:02 PM EDT Nephrology Attending Procedure note: CRRT Alix Holland was seen and examined on CVVH. Data and chart reviewed. The case was discussed with the CCS team 31 y.o.??male?? presented to ICU having been found down at home conscious but then experienced [id number] cardiac arrest with ROSC, severe hyperkalemia, rhabdomyolysis, compartment syndrome - now s/ LUE and LLE fasciotomies, lactic acidosis and found to have acute COVID19 syndrome with fever. ?? PMH significant for hypertension, angioedema requiring intubation (unclear trigger), GERD, gastritis, esophagitis, and urachal cyst s/p I&D, and polysubstance use (including EtOH, cocaine, heroin) Tolerating CVVH well without net hourly ultrafiltration CRRT access: placement good - requriing pre-filter heparin I Blood pressure 128/84, pulse 66, temperature 36.6 ??C (97.9 ??F), temperature source Oral, resp. rate 10, height 182.9 cm (6'), weight 106.5 kg (234 lb 12.6 oz), SpO2 96 %. Electrolytes Lab Results Component Value Date Sodium 136 01/24/2022 Potassium 4.4 01/24/2022 Chloride 103 01/24/2022 CO2 22 01/24/2022 Lab Results Component Value Date PHOS 4.5 01/24/2022 ABG (Arterial Blood Gas) Lab Results Component Value Date pH Art 7.48 (H) 01/24/2022 pO2 Art 68 (L) 01/24/2022 pCO2 Art 29 (L) 01/24/2022 Calcium, ionized calcium, and additional relevant data reviewed. CRRT orders reviewed. No changes made at this time Galdino Cotter, RT - 01/24/2022 9:48 AM EDT AMV Protocol: Yes SBT Protocol: Yes Vent Settings: PSV PS 5, PEEP 5 21% Airway: 8.0 @ 26 cm at the Teeth. Skin Integrity: WDL Breath Sounds: Diminished Secretions: Assessment / Events / Plan of the Day: Patient was received on charted settings and was supported with MV for duration of shift. Continue to support patient with MV. RT Jameel Tex Robles MD - 01/24/2022 9:06 AM EDT MICU STAFF ADMISSION NOTE Critical Care Medicine Author: Tex Robles MD Patient seen and examined on admission to the ICU. HPI Alix Holland is a 31 y.o. male with PMH of Polysubstance abuse including alcohol, HTN with prior treatment for lisinopril, GERD was brought to [facility] via EMS today after he was notedto have a cardiac arrest. He [place] [facility] [place]ioed[place]. During that admission, he had initially presented at [facility] with facial and oropharyngeal swelling and had to be fibreoptically intubated in the OR. He was transferred [place] [facility] [place] management and received treatment with prednis one and benadryl. His work up included testing for C4 complement, tryptase as well as CRP which was normal. He was successfully extubated on 04/27. He did have a Utox at that time given his h/o substance abuse and was noted to be positive for benzos and fentanyl. He was given phenobarb for alcohol withdrawal. The patient was found by his father today at 5 pm with impaired cognition. He was able to answer some questions and was tachypneic. The patient did admit to taking fentanyl. The time time for the patient was unknown. He had complained of left upper extremity pain. EMS was called and en route to [facility], he was noted to be in possible SVT. He was given narcan which did not help. The details are slightly uncertain/unclear. On arrival to [facility], he was noted to have a V. tach arrest for which she was shocked. He is lab work was consistent with hyperkalemia with a potassium of 7.8 for which she received multiple doses of sodium bicarbonate, calcium gluconate and insulin/D10 with improvement in potassium to5.4. He was also intubated at [facility] and was transferred to [facility] [place] [place]. He was found to be COVID-positive at [facility]. On arrival to [facility] [place], he was again noted to be hyperkalemic with a potassium of 7.6 for which she was given shift therapy his EKG demonstrated peaked T waves and his left upper extremity was noted to be cool/firm concerning for compartment syndrome. His lab work also revealed rhabdomyolysis with a CK of greater than 10-2 0000. Ortho was consulted and he was taken to the OR this morning for fasciotomies. Given persistent hyperkalemia, CRRT was also initiated. He was febrile on arrival to OSH and and after arrival to [facility] [place], was weaned to minimal oxygen support. CT chest was clear apart from partial collapse of left lower lobe and dependent atelectatic change. Interval Events - Followed commands last night. - CRRT being run positive as CK increased last night - Filter clotted off twice, received pre filter heparin - s/p LUE, left posterior thigh fasciotomy EXAM: GEN: Patient is intubated and sedated. PULM:Clear breath sounds bilaterally. CVS: S1 S2 normal. No murmurs. ABDO: soft, NT, BS (+) EXT: Doplerable pulses DP. LUE in TAMIE wrap. Left thigh with wound vac on. NEURO: opens his eyes with verbal stimulus. Has followed commands. [facility] labs and studies: 01/24/2022 WBC 11.4 hemoglobin 14.8 hematocrit 41.7 platelets 136 ABG 7.4 03/29/1967 Sodium 136 potassium 4.4 chloride 103 [place] [address] Total bilirubin 0.5 AST 1181 ALT 682 Tracheal aspirate culture 01/23: Staph aureus HIV: Negative Drips : Levo @ 4 Precedex @ 0.7 fentanyl @ 100 Vent PSV 5/5 21 % FiO2 I/O ( 24 hrs ) : +3853 ml Patient Lines/Drains/Airways Status Active Tubes/Lines/Drains Name Placement date Placement time Site Days Percutaneous Central Line - Triple Lumen 01/23/22 0600 internal jugular vein, right 01/23/22 0600 -- 1 Percutaneous Central Line - Triple Lumen 01/23/22 1625 internal jugular vein, left 01/23/22 1625 --1 Rectal Tube 01/23/22 0600 fecal management system 01/23/22 0600 -- 1 Urethral Catheter 01/23/22 0035 01/23/22 0035 -- 1 Naso/Oral Tube 01/23/22 0059 Cecil sump left nostril 01/23/22 0059 left nostril 1 ETT Airway 01/23/22 0116 01/23/22 0116 -- 1 Arterial Line 01/23/22 0130 radial artery, right 01/23/22 0130 -- 1 Drips : LR @ 200, precedex @ 1 fentanyl @ 100 Vent : PSV 5/5 21% fiO2 Active problems: Acute hypoxic respiratory failure Fentanyl OD Metabolic acidosis Lactic acidosis COVID 19 Transaminitis likely shock liver Global pallidi infarcts Mild cerebral edema. Rhabdomyolysis Compartment syndrome Metabolic acidosis. Diarrhea Staphylococcus aureus PNA ASSESSMENT, MANAGEMENT, and DECISION MAKING: NEURO Global pallidi infarcts Mild cerebral edema. Fentanyl OD - Currently doing well on precedex and fentanyl . Does follow commands when sedation is lowered. Continue neuro checks - MRI brain to follow up on the infarcts noted on the CT head. PULM Acute hypoxic respiratory failure Possible aspiration PNA - Could be in the setting of patients worsening mental status and in light of the cardiac arrest. - Continue PSV protocol - Tracheal aspirate culture grew Staphylococcus aureus, lab called to speciate MRSA vs MSSA. Given clinical stability, will hold off on switching to Vanc. Continue iv unasyn. CVS ST depressions on EKG V.tach Cardiac arrest Elevated troponin could be demand ischemia Shock in the setting of cardiac arrest vs sedation related - patient did have a Vtach arrest which was thought to be secondary to hyperkalemia. However, he also had significant EKG changes. ECHO results pending. TTM was not done last night as the patient was awake and following commands. - Troponins trending down. RENAL ALTHEA/hyperkalemia Rhabdomyolysis Lactic acidosis -Continue CRRT. Keeping net positive given rhabdomyolysis. Monitor urine output. - continue LR ID COVID 19 - patient has hadimproved vent settings and oxygenation. Given COVID 19 is not causing any significant hypoxia, will stop decadron, ORTHO Compartment syndrome - s/p LUE, left posterior thigh as well as left calf fasciotomies with wound VAC placement on 01/23/22. Continues to drain from the wound vac. Ortho recs appreciated. - Continue neurovascular checks. ENDO Elevated blood sugars - Continue ISS GI Transaminitis likely shock liver Tylenol and salicylate levels were negative at OSH. Slight worsening of his AST, though ALT is getting better. Will continue to monitor Start TF's, nutrition consulted. Px : Pantoprazole/Hep sc IS PATIENT CRITICALLY ILL ? Is there a high potential of sudden, clinically significant, or life threatening deterioration? Yes Is there a need for direct personal assessment and management to treat/prevent multiple vital organfailure/deterioration? Yes If this patient is not critically ill, I certify the patient requires in-patient hospitalization forNA PATIENT IS CRITICALLY ILL WITH THESE DIAGNOSES BEING MANAGED BY [facility] TEAM: Active problems: Acute hypoxic respiratory failure Fentanyl OD COVID 19 Transaminitis likely shock liver Global pallidi infarcts Mild cerebral edema. Rhabdomyolysis Compartment syndrome Diarrhea I personally performed 45 mins of aggregate critical care time exclusive of procedures and teaching.This includes time spent during direct patient evaluation and reassessment, interpreting diagnostic tests, directing life and/or organ supporting interventions and documentation on the unit. TEX ROBLES MD Tanya Hernandez MD - 01/24/2022 6:32 AM EDT ORTHOPAEDIC SURGERY INPATIENT PROGRESS NOTE Patient Name: Alix Holland Age: 31 y.o. Surgery/Issue: L forearm, thigh, buttock, leg compartment syndrome s/p fasciotomies Attending: Jose Date of surgery: 01/23/2022 SUBJECTIVE / INTERVAL HISTORY: Patient remains intubated and sedated. Lactate improved to 2.5, continues on CRRT. Hg 14.8, CK remains elevated 55391. AFVSS, NAEON. No motor or sensory exam possible this AM, per team has been seen moving right side. Pressor requirements decreasing. FOCUSED REVIEW OF SYSTEMS: as above. Active Hospital Problems Diagnosis ??? Rhabdomyolysis ??? Transaminitis ??? Aspiration pneumonia ??? LIZESHAMAR compartment syndrome s/p fasciotimies, I+D 01/23/22 Jose ??? Asymptomatic COVID-19 virus infection ??? Lactic acidosis ??? ALTHEA (acute kidney injury) ??? Continuous renal replacement therapy (CRRT) for acute renal failure ??? Cardiac arrest Resolved Hospital Problems No resolved problems to display. Active Non-Hospital Problems Diagnosis ??? Angioedema ??? Chest pain ??? Smoker ??? Mandible fracture MEDICATIONS: ??? heparin (porcine) 50 units/mL in sodium chloride 0.45% 500 mL infusion ??? heparin (porcine) (1,000 units/mL) injection 1,000-10,000 Units ??? bicarbonate CRRT (NxSTAGE) 4 mEq/L K+, 3 mEq/L Ca++, 5,000 mL Solution 5 each ??? sodium phosphate (0.1 mMol/mL) in sodium chloride 0.9 % 150 mL infusion (CRRT) ??? calcium gluconate 15 g in sodium chloride 0.9% 250 mL infusion ??? tube feeding diet ??? lactated ringers infusion ??? glucose (Glutose) 40% oral geL OR dextrose 10% infusion OR glucagon (Glucagen) (1 mg/mL)injection solution 1 mg ??? insulin lispro (HumaLOG;Admelog) (100 unit/mL) subcutaneous injection vial 2-8 Units ??? chlorhexidine (Peridex) 0.12 % oral solution 15 mL ??? pantoprazole (Protonix) injection 40 mg ??? heparin (porcine) (5,000 units/1 mL) subcutaneous injection 5,000 Units ??? NORepinephrine (Levophed) (16 mcg/mL) in dextrose 5% 250 mL infusion ??? fentaNYL (PF) (50 mcg/mL) infusion syringe 50 mL AND [COMPLETED] fentaNYL (50 mcg/mL) bolus from infusion 25 mcg AND fentaNYL (50 mcg/mL) bolus from infusion 25-100 mcg AND fentaNYL shift total and Settings verification AND Assess ??? thiamine (Vitamin B-1) (100 mg/mL) injection 100 mg ??? folic acid (Vitamin B9) (5 mg/mL) injection 1 mg ??? dexmedeTOMIDine (Precedex) (4 mcg/mL) in sodium chloride 0.9% 100 mL infusion ??? midazolam (pf) (Versed) (1 mg/mL) injection 1 mg ??? ampicillin-sulbactam (Unasyn) 3 g vial attach to sodium chloride 0.9% 100 mL Mini-Bag Plus ??? lactated ringers infusion ??? heparin (porcine) infusion 400 Units/hr (01/24/22 1700) ??? bicarbonate CRRT with 4 mEq/L K+, 3 mEq/L Ca++ 5 each (01/24/22 1119) ??? sodium phosphate ??? calcium gluconate 10 mL/hr (01/24/22 0941) ??? tube feeding diet 9,999 mL (01/24/22 1817) ??? NORepinephrine 2 mcg/min (01/24/22 1100) ??? fentaNYL 100 mcg/hr (01/24/22 1419) ??? dexmedeTOMIDine 1 mcg/kg/hr (01/24/22 1323) ??? lactated Ringers 200 mL/hr (01/24/22 1347) OBJECTIVE: Temp: [36.6 ??C (97.9 ??F)-37.4 ??C (99.3 ??F)] Heart Rate: [65-95] Resp: [10-22] Intake/Output Summary (Last 24 hours) at 01/24/2022 1832 Last data filed at 01/24/2022 1800 Gross per 24 hour Intake 7560.41 ml Output 4249 ml Net 3311.41 ml BMI: Weight: 106.5 kg (234 lb 12.6 oz) (01/24/22 0600) BMI (Calculated): 30.43 BMI Classification: Obese Body mass index is 31.84 kg/m??. PE: General: Intubated and sedated CV: RRR on monitor Resp: Mechanically ventilated LUE: Wound vac to suction without evidence of leak No motor or sensory exam possible Brisk capillary refill distally, fingers warm/well-perfused Doppler radial signal LLE: Wound vacs to suction without evidence of leak No motor or sensory exam possible Brisk capillary refill distally, foot warm/well-perfused Doppler DP, PT signals Lab Results Component Value Date NA 136 01/24/2022 K 4.4 01/24/2022 CL 103 01/24/2022 CO2 22 01/24/2022 BUN 31 (H) 01/24/2022 CREATININE 3.00 (H) 01/24/2022 GLUCOSE 164 01/24/2022 GLUCFASTING 151 (H) 04/26/2021 CALCIUM 8.0 (L) 01/24/2022 Lab Results Component Value Date WBC 11.4 (H) 01/24/2022 HGB 14.8 01/24/2022 HCT 41.7 01/24/2022 MCV 89.5 01/24/2022 PLATELET 136 (L) 01/24/2022 Lab Results Component Value Date INR 1.3 01/23/2022 ASSESSMENT / PLAN: Alix Holland is a 31 y.o. male 1 Day Post-Op L forearm, thigh, buttock, leg fasciotomy and wound vacs. Improving but in critical condition. Plan for repeat I+D, vac change tomorrow. - Activity: NWB LUE, NWB LLE - Antibiotics: Ancef - DVT px: Per primary - Diet: NPO JOSE ARMANDO Hernandez MD 01/24/2022 No future appointments. Associated attestation - Sigifredo Garcia MD - 01/25/2022 7:27 AM EDT I discussed the patient and the plan for the patient's care with the primary author and reviewed thedata. I have reviewed and agree with the findings and the plan of care as outlined above. Sigifredo Garcia MD Department of Orthopaedics 01/25/22 Debbie Escobar RCP - 01/24/2022 5:21 AM EDT AMV Protocol: Yes SBT Protocol: Yes SBT: Not performed per SENIOR SALES OPERATIONS ANALYST availability. Vent Settings: Ventilator Mode: PS/CPAP PEEP Set: 5 FiO2: 21 % PSV: 5 Ventilator Measurements: Resp: 14 Vt Spontaneous: 765 Ve: 10.8 SpO2: 98 % EtCO2: 30 mmHg Airway: 8.0 @ 26 cm at the Teeth. Skin Integrity: WDL Assessment / Events / Plan of the Day: Received patient on PSV 14/5 21%. Able to wean patient to 5/5. Debbie Escobar RCP Dilia Ferrara RN - 01/23/2022 8:03 PM EDTSummary: TELEMETRY STRIP Images from the original note were not included. Meng Valdes MD - 01/23/2022 5:33 PM EDT Post-Operative Check Alix Holland is a 31 y.o. male s/p Procedure(s): @FASCIOTOMY,THIGH OR HIP FOR COMPARTMENT SYNDROME (WRVU 12.89) MEDIAN NERVE DECOMPRESSION (CARPAL TUNNEL RELEASE) (WRVU 4.97) MODIFIER WOUND VAC FASCIOTOMY, LOWER LEG, ALL COMPARTMENTS (WRVU 7.82) FASCIOTOMY; FOREARM AND\OR WRIST, FLEXOR & EXTENS. COMP (WRVU 10.79) S: Remains intubated / sedated in the ICU. Continues on 2 mcg/min of levo, fent 75mcg/hr, dex 0.7 mcg/hr appears comfortable. Minimally interactive on exam due to sedation. O: Temp: [36.3 ??C (97.3 ??F)-36.7 ??C (98.1 ??F)] Heart Rate: [90-108] Resp: [15-26] BP: -- SpO2: [96 %-100 %] Heart Rate from SpO2: [90 bpm-108 bpm] I/O last 3 completed shifts: In: 6042.4 [I.V.:5465.4; Other:100; IV Piggyback:477] Out: 1075 [Urine:425; Other:100; Stool:550] I/O this shift: In: 4330 [I.V.:4043; Other:250; IV Piggyback:37] Out: 2796 [Urine:275; Other:2271; Blood:250] Recent Results (from the past 24 hour(s)) COVID-19 PCR Specimen: Tracheal Aspirate Symptoms->COVID-19 Suspected Result Value Ref Range SARS-CoV-2 RNA Detected (A) Not Detected SARS-Cov-2 RNA Source Trach Asp POCT Glucose Result Value Ref Range POC Glucose 146 65 - 199 mg/dL Prothrombin Time Result Value Ref Range PT Disregard 9.4 - 12.5 INR Disregard APTT Result Value Ref Range PTT Disregard 25 - 37 Fibrinogen Result Value Ref Range Fibrinogen Disregard 200 - 393 Hepatic Function Panel Result Value Ref Range Total Protein 5.9 (L) 6.1 - 8.0 g/dL Albumin 3.1 (L) 3.2 - 5.2 g/dL AST >700 (H) 0 - 39 unit/L ALT >700 (H) 0 - 55 unit/L Alk Phos 71 40 - 130 unit/L Total Bilirubin 0.4 0.2 - 1.3 mg/dL Bili, Direct 0.2 0.0 - 0.3 mg/dL Magnesium Result Value Ref Range Magnesium 1.08 (H) 0.69 - 1.07 mmol/L Phosphorus Result Value Ref Range Phosphorus 10.0 (CRIT) 2.5 - 4.5 mg/dL Basic Metabolic Panel (non-fasting) Result Value Ref Range Glucose Lvl 143 65 - 199 mg/dL BUN 47 (H) 10 - 20 mg/dL Creatinine 4.42 (H) 0.80 - 1.50 mg/dL Sodium 142 135 - 145 mmol/L Potassium 7.6 (CRIT) 3.5 - 5.0 mmol/L Chloride 102 98 - 107 mmol/L CO2 17 (L) 22 - 31 mmol/L Anion Gap 23 (H) 5 - 15 mmol/L Calcium 5.8 (CRIT) 8.5 - 10.5 mg/dL Estimated GFR 17 (L) >=60 mL/min/1.73 m?? Troponin Result Value Ref Range Troponin-T 0.43 (H) 0.00 - 0.00 ng/mL CK Result Value Ref Range CK, Total >220,000 (H) 0 - 200 unit/L TSH [place] Result Value Ref Range TSH 7.69 (H) 0.27 - 4.20 mcIU/mL ABO/Rh Typing Result Value Ref Range ABORh Type A Pos Antibody screen Result Value Ref Range Ab Screen Interp Negative Expires at 2359 on: 01/26/2022 ABORH Recheck Status Result Value Ref Range ABORH Recheck Order Order Placed ABORH Type Recheck Complete Hemogram Result Value Ref Range WBC 22.6 (H) 4.0 - 9.5 x10(3)/mcL RBC 6.64 (H) 4.58 - 5.54 x10(6)/mcL Hemoglobin 21.5 (CRIT) 13.7 - 16.5 g/dL Hematocrit 63.2 (H) 40.5 - 48.5 % MCV 95.2 (H) 82.9 - 93.1 fL MCH 32.4 (H) 27.5 - 32.1 pg MCHC 34.0 32.0 - 35.7 g/dL Platelets 269 145 - 357 x10(3)/mcL RDWSD 43.9 36.0 - 45.0 fL RDWCV 12.3 11.4 - 13.8 % MPV 9.7 7.6 - 12.9 fL nRBC % Auto 0.3 % nRBC Abs Auto 0.060 (H) 0.000 - 0.000 x10(3)/mcL Differential, Automated Result Value Ref Range Neutrophils % 71.4 % Neutr Abs (ANC) 16.11 (H) 1.70 - 6.10 x10(3)/mcL Lymphocytes % 17.4 % Lymphocytes Abs 3.9 (H) 0.9 - 3.2 x10(3)/mcL Monocytes % 9.3 % Monocyte Abs 2.1 (H) 0.3 - 0.9 x10(3)/mcL Eosinophils % 0.0 % Eosinophils Abs 0.0 0.0 - 0.4 x10(3)/mcL Basophils % 0.5 % Basophils Abs 0.1 0.0 - 0.1 x10(3)/mcL Immature Gran % 1.40 % Gemini Gran Abs 0.31 (H) 0.00 - 0.04 x10(3)/mcL Scan, Peripheral Blood Result Value Ref Range Plat Estimate Normal RBC Morphology Normal Type and Screen Validity Result Value Ref Range T&S only valid at [facility] Triglyceride Result Value Ref Range Triglycerides 273 mg/dL T4, free Result Value Ref Range Free T4 1.19 0.93 - 1.70 ng/dL BLOOD GAS 2 ARTERIAL Result Value Ref Range pH Art 7.32 (L) 7.35 - 7.45 pCO2 Art 33 (L) 35 - 45 mmHg pO2 Art 68 (L) 85 - 104 mmHg HCO3 Art 16.8 (L) 20.0 - 26.0 mmol/L BE Art -9.3 (L) -3.0 - 3.0 mmol/L Hgb Blood Gas 20.4 (CRIT) 13.7 - 16.5 g/dL O2HB Art 92.4 (L) 94.0 - 97.0 % COHB Art 0.2 % METHB Art 0.7 <=1.5 % Na Whole Blood 141 135 - 145 mmol/L K Whole Blood 5.3 (H) 3.5 - 5.0 mmol/L ICa Whole Blood 0.97 (L) 1.15 - 1.33 mmol/L CL Whole Blood 106 98 - 107 mmol/L Gluc Whole Bld 158 65 - 199 mg/dL Lactate WB 4.1 (CRIT) 0.5 - 2.2 mmol/L FIO2 Art 75 % PF Ratio Art 91 _Urinalysis with microscopic Result Value Ref Range Glucose UA Negative Negative mg/dL Protein UA >=300 (A) Negative Bilirubin UA Moderate (A) Negative mg/dL Urobilinogen UA Normal Normal mg/dL pH UA 6.5 5.0 - 8.0 Blood UA Large (A) Negative mg/dL Ketones UA Trace (A) Negative mg/dL Nitrite UA Positive (A) Negative Leukocytes UA Negative Negative mcL Appearance UA Cloudy (A) Clear Spec [place] UA >=1.030 (A) 1.006 - 1.030 Color UA Brown (A) RBC UA 2 0 - 3 /HPF WBC UA <1 0 - 3 /HPF Bacteria UA Many (A) None /HPF Squam Epith UA 1 <=4 /HPF Hyaline Cast UA <1 0 - 2 /LPF Amorph Mila UA Many (A) None /HPF Rapid Drug Screen, Urine (MEGHNA Request) Result Value Ref Range MEGHNA Conf Requested No MEGHNA Requested See Comment Rapid Drug Screen w/o Confirmation, Urine Result Value Ref Range U Barbiturates Screen Presumptive Pos (A) None Detected U Benzodiazepines Screen Presumptive Pos (A) None Detected U Cocaine Screen None Detected None Detected U Methadone Metabolites Screen None Detected None Detected U Opiate Screen None Detected None Detected U Cannabinoid Screen None Detected None Detected U Oxycodone Screen Presumptive Pos (A) None Detected U Buprenorphine Screen None Detected None Detected U Fentanyl Screen Presumptive Pos (A) None Detected U Tricyclics Screen None Detected None Detected U Ethanol Screen None Detected None Detected U Amphetamines Screen None Detected None Detected U Adulterants Screen None Detected None Detected Fibrinogen Result Value Ref Range Fibrinogen 349 200 - 393 mg/dL Prothrombin Time Result Value Ref Range PT 14.4 (H) 9.4 - 12.5 sec INR 1.3 APTT Result Value Ref Range PTT 25 25 - 37 sec Hemogram Result Value Ref Range WBC 12.1 (H) 4.0 - 9.5 x10(3)/mcL RBC 5.49 4.58 - 5.54 x10(6)/mcL Hemoglobin 17.6 (H) 13.7 - 16.5 g/dL Hematocrit 50.3 (H) 40.5 - 48.5 % MCV 91.6 82.9 - 93.1 fL MCH 32.1 27.5 - 32.1 pg MCHC 35.0 32.0 - 35.7 g/dL Platelets 184 145 - 357 x10(3)/mcL RDWSD 41.9 36.0 - 45.0 fL RDWCV 12.3 11.4 - 13.8 % MPV 9.7 7.6 - 12.9 fL nRBC % Auto 0.2 % nRBC Abs Auto 0.030 (H) 0.000 - 0.000 x10(3)/mcL Potassium Result Value Ref Range Potassium 6.6 (CRIT) 3.5 - 5.0 mmol/L Hepatitis C Antibody Result Value Ref Range Hepatitis C Ab Negative Negative Hepatitis B Surface Antibody Result Value Ref Range HepB Surface Ab Quant 418.0 IU/L HepB Surface Ab Positive POCT Glucose Result Value Ref Range POC Glucose 205 (H) 65 - 199 mg/dL Troponin Result Value Ref Range Troponin-T 0.35 (H) 0.00 - 0.00 ng/mL CK Result Value Ref Range CK, Total 158,930 (H) 0 - 200 unit/L Electrolytes panel Result Value Ref Range Sodium 140 135 - 145 mmol/L Potassium 5.9 (H) 3.5 - 5.0 mmol/L Chloride 102 98 - 107 mmol/L CO2 15 (L) 22 - 31 mmol/L Anion Gap 23 (H) 5 - 15 mmol/L Electrolytes panel Result Value Ref Range Sodium 141 135 - 145 mmol/L Potassium 4.6 3.5 - 5.0 mmol/L Chloride 106 98 - 107 mmol/L CO2 14 (L) 22 - 31 mmol/L Anion Gap 21 (H) 5 - 15 mmol/L Creatinine Result Value Ref Range Creatinine 3.84 (H) 0.80 - 1.50 mg/dL Estimated GFR 21 (L) >=60 mL/min/1.73 m?? Magnesium Result Value Ref Range Magnesium 0.81 0.69 - 1.07 mmol/L Phosphorus Result Value Ref Range Phosphorus 6.1 (H) 2.5 - 4.5 mg/dL Blood Gas Arterial ([facility]) Result Value Ref Range pH Art 7.37 7.35 - 7.45 pCO2 Art 28 (L) 35 - 45 mmHg pO2 Art 96 85 - 104 mmHg HCO3 Art 15.7 (L) 20.0 - 26.0 mmol/L BE Art -9.6 (L) -3.0 - 3.0 mmol/L Hgb Blood Gas 16.4 13.7 - 16.5 g/dL O2HB Art 96.6 94.0 - 97.0 % COHB Art 0.3 % METHB Art 0.2 <=1.5 % Na Whole Blood 137 135 - 145 mmol/L K Whole Blood 4.4 3.5 - 5.0 mmol/L ICa Whole Blood 0.90 (CRIT) 1.15 - 1.33 mmol/L CL Whole Blood 105 98 - 107 mmol/L Gluc Whole Bld 203 (H) 65 - 199 mg/dL Lactate WB 5.5 (CRIT) 0.5 - 2.2 mmol/L FIO2 Art 30 % PF Ratio Art 320 POCT Glucose Result Value Ref Range POC Glucose 215 (H) 65 - 199 mg/dL BLOOD GAS 2 ARTERIAL Result Value Ref Range pH Art 7.34 (L) 7.35 - 7.45 pCO2 Art 34 (L) 35 - 45 mmHg pO2 Art 105 (H) 85 - 104 mmHg HCO3 Art 18.1 (L) 20.0 - 26.0 mmol/L BE Art -7.7 (L) -3.0 - 3.0 mmol/L Hgb Blood Gas 16.6 (H) 13.7 - 16.5 g/dL O2HB Art 97.0 94.0 - 97.0 % COHB Art 0.3 % METHB Art 0.0 <=1.5 % Na Whole Blood 140 135 - 145 mmol/L K Whole Blood 4.5 3.5 - 5.0 mmol/L ICa Whole Blood 0.91 (CRIT) 1.15 - 1.33 mmol/L CL Whole Blood 103 98 - 107 mmol/L Gluc Whole Bld 179 65 - 199 mg/dL Lactate WB 4.4 (CRIT) 0.5 - 2.2 mmol/L BLOOD GAS 2 ARTERIAL Result Value Ref Range pH Art 7.40 7.35 - 7.45 pCO2 Art 33 (L) 35 - 45 mmHg pO2 Art 97 85 - 104 mmHg HCO3 Art 20.3 20.0 - 26.0 mmol/L BE Art -4.4 (L) -3.0 - 3.0 mmol/L Hgb Blood Gas 15.3 13.7 - 16.5 g/dL O2HB Art 96.8 94.0 - 97.0 % COHB Art 0.4 % METHB Art 0.3 <=1.5 % Na Whole Blood 135 135 - 145 mmol/L K Whole Blood 4.0 3.5 - 5.0 mmol/L ICa Whole Blood 1.11 (L) 1.15 - 1.33 mmol/L CL Whole Blood 105 98 - 107 mmol/L Gluc Whole Bld 141 65 - 199 mg/dL Lactate WB 5.0 (CRIT) 0.5 - 2.2 mmol/L BLOOD GAS 2 ARTERIAL Result Value Ref Range pH Art 7.40 7.35 - 7.45 pCO2 Art 37 35 - 45 mmHg pO2 Art 61 (L) 85 - 104 mmHg HCO3 Art 22.3 20.0 - 26.0 mmol/L BE Art -2.6 -3.0 - 3.0 mmol/L Hgb Blood Gas 15.3 13.7 - 16.5 g/dL O2HB Art 91.2 (L) 94.0 - 97.0 % COHB Art 0.3 % METHB Art 0.3 <=1.5 % Na Whole Blood 137 135 - 145 mmol/L K Whole Blood 4.5 3.5 - 5.0 mmol/L ICa Whole Blood 1.23 1.15 - 1.33 mmol/L CL Whole Blood 105 98 - 107 mmol/L Gluc Whole Bld 117 65 - 199 mg/dL Lactate WB 4.9 (CRIT) 0.5 - 2.2 mmol/L FIO2 Art 62 % PF Ratio Art 98 Temp Art 36.5 [place] POCT Glucose Result Value Ref Range POC Glucose 119 65 - 199 mg/dL Troponin Result Value Ref Range Troponin-T 0.24 (H) 0.00 - 0.00 ng/mL CK Result Value Ref Range CK, Total 146,810 (H) 0 - 200 unit/L Electrolytes panel Result Value Ref Range Sodium 142 135 - 145 mmol/L Potassium 5.6 (H) 3.5 - 5.0 mmol/L Chloride 107 98 - 107 mmol/L CO2 19 (L) 22 - 31 mmol/L Anion Gap 16 (H) 5 - 15 mmol/L Magnesium Result Value Ref Range Magnesium 0.86 0.69 - 1.07 mmol/L Phosphorus Result Value Ref Range Phosphorus 6.8 (H) 2.5 - 4.5 mg/dL Creatinine Result Value Ref Range Creatinine 3.56 (H) 0.80 - 1.50 mg/dL Estimated GFR 23 (L) >=60 mL/min/1.73 m?? Lower Respiratory Culture Tracheal Aspirate Specimen: Tracheal Aspirate Result Value Ref Range Gram Stain (A) Many Neutrophils No squamous epithelial cells Moderate Gram Positive Cocci Organism Gram Positive Cocci (A) Hepatitis B Core Antibody, Total Result Value Ref Range Hep B Core Ab Negative Negative Hepatitis B Surface Antigen Result Value Ref Range HepB Surface Ag Negative Negative BLOOD GAS 2 ARTERIAL Result Value Ref Range pH Art 7.43 7.35 - 7.45 pCO2 Art 32 (L) 35 - 45 mmHg pO2 Art 86 85 - 104 mmHg HCO3 Art 20.8 20.0 - 26.0 mmol/L BE Art -3.5 (L) -3.0 - 3.0 mmol/L Hgb Blood Gas 16.1 13.7 - 16.5 g/dL O2HB Art 95.6 94.0 - 97.0 % COHB Art 0.2 % METHB Art 0.4 <=1.5 % Na Whole Blood 137 135 - 145 mmol/L K Whole Blood 5.5 (H) 3.5 - 5.0 mmol/L ICa Whole Blood 1.04 (L) 1.15 - 1.33 mmol/L CL Whole Blood 104 98 - 107 mmol/L Gluc Whole Bld 144 65 - 199 mg/dL Lactate WB 2.7 (H) 0.5 - 2.2 mmol/L FIO2 Art 60 % PF Ratio Art 143 POCT Glucose Result Value Ref Range POC Glucose 145 65 - 199 mg/dL Calcium Ionized Whole Blood, HONORIO Result Value Ref Range pH Honorio 7.42 7.32 - 7.42 ICa Whole Blood 1.13 (L) 1.15 - 1.33 mmol/L Physical Exam General: Intubated / sedated Head: Atraumatic, non cyanotic Cardiac: Regular rate Pulmonary: Intubated / sedated Abdominal: Soft, non distended Neuro: Grossly intact, follows commands Extremities: LUE with wound vac in place to -125 holding suction, TAMIE wrap in place. Fingers with adequate cap refill, cool to the touch. LLE thigh and lateral leg fasciotomy with wound vacs in place to -125 holding suction, distal pulses 2+. Cool to the touch but with good capillary refill. Unable toassess motor function 2/2 sedation AP Alix Holland is a 31 y.o. male s/p above procedures currently remains intubated / sedated in the ICU. Activity: NWB LUE, NWB LLE DVT prophylaxis: Per primary Closure: Wound vacs (L forearm-1blk, 1 white; L thigh-1blk, L leg-1blk) Dressing: WVac as above Antibiotics: Continue ABx until fasciotomy sites closed - Juno Valdes MD 01/23/2022 Nikki Cuevas RT - 01/23/2022 3:54 PM EDT AMV Protocol: Yes SBT Protocol: Yes Current Settings: Mode: PS/CPAP PS: 14 cmH2O PEEP: 5 cmH2O FiO2: 30 % Ventilator Measurements: RR: ~ 15 bpm Vt Spontaneous: 820 ml Ve: 14 L/min EtCO2: 27 mmHg SpO2: 98 % Airway: 8.0 at 26 cm at the Teeth. Skin Integrity: WDL Ambu bag setup at [facility] Breath Sounds: coarse/diminished Secretions: scant creamy thick Assessment / Events: Received patient on PS 18 / +10 PEEP 30% FiO2 RR mid to high teens Ve~16 Sating 99% Vt ~14ml/kg EtCo2 ~22 With recent ABG pH 7.37 / PaCo2 28 / Bicarb 15.7 / PaO2 96 / SaO2 97% Weaned to 10/8 30% Went to OR Was transitioned to VC when returned from OR 550 (~7ml/kg) x26bpm +8 PEEP 60% ABG drawn ~1156 on those settings: pH 7.43 / PaCo2 32 / Bicarb 20.8 / PaO2 86 / SaO2 96% Titrated settings to 45% then transitioned to PS 14/5 30% Plan: Managing ventilator per AMV/SBT protocols Angelina Reynoso MD - 01/23/2022 10:26 AM EDT Renal Attending Inpatient Consult We are asked to evaluate Alix Holland regarding ALTHEA indications for CRRT. 31 y.o. male presented to ICU having been found down at home conscious but then experienced [id number] cardiac arrest with ROSC, severe hyperkalemia, rhabdomyolysis, compartment syndrome - now s/ LUE and LLE fasciotomies, lactic acidosis and found to have acute COVID19 syndrome with fever. PMH significant for hypertension, angioedema requiring intubation (unclear trigger), GERD, gastritis, esophagitis, and urachal cyst s/p I&D, and polysubstance use (including EtOH, cocaine, heroin) Patient Active Problem List Diagnosis Code ??? Mandible fracture S02.609A ??? Smoker F17.200 ??? Chest pain R07.9 ??? Angioedema T78.3XXA ??? Cardiac arrest I46.9 ??? [MAR Hold] glucose (Glutose) 40% oral geL OR [MAR Hold] dextrose 10% infusion OR [MAR Hold] glucagon (Glucagen) (1 mg/mL) injection solution 1 mg ??? [MAR Hold] insulin lispro (HumaLOG;Admelog) (100 unit/mL) subcutaneous injection vial 2-8 Units ??? [MAR Hold] chlorhexidine (Peridex) 0.12 % oral solution 15 mL ??? [MAR Hold] pantoprazole (Protonix) injection 40 mg ??? [MAR Hold] heparin (porcine) (5,000 units/1 mL) subcutaneous injection 5,000 Units ??? [MAR Hold] NORepinephrine (Levophed) (16 mcg/mL) in dextrose 5% 250 mL infusion ??? [MAR Hold] fentaNYL (PF) (50 mcg/mL) infusion syringe 50 mL AND [COMPLETED] fentaNYL (50 mcg/mL) bolus from infusion 25 mcg AND [MAR Hold] fentaNYL (50 mcg/mL) bolus from infusion 25-100 mcg AND [SEP Hold] fentaNYL shift total and Settings verification AND Assess ??? [SEP Hold] propofoL (Diprivan) (10 mg/mL) infusion AND [MAR Hold] propofoL (Diprivan) (10 mg/mL) bolus from infusion 10 mg ??? [COMPLETED] acetylcysteine (Acetadote) 15,000 mg in dextrose 5% 200 mL infusion (Loading Dose) FOLLOWED BY [COMPLETED] acetylcysteine (Acetadote) 5,000 mg in dextrose 5% 500 mL infusion (SecondDose) FOLLOWED BY [SEP Hold] acetylcysteine (Acetadote) 10,000 mg in dextrose 5% 1,000 mL infusion (Third Dose) ??? [SEP Hold] lactated ringers infusion ??? [SEP Hold] sodium bicarbonate 150 mEq in dextrose 5% 1150 mL infusion ??? [SEP Hold] heparin (porcine) (1,000 units/mL) injection 1,000-10,000 Units ??? [SEP Hold] bicarbonate CRRT (NxSTAGE) 3 mEq/L K+, 3 mEq/L Ca++, 5,000 mL Solution 5 each ??? [SEP Hold] sodium phosphate (0.1 mMol/mL) in sodium chloride 0.9 % 150 mL infusion (CRRT) ??? [SEP Hold] calcium gluconate 15 g in sodium chloride 0.9% 250 mL infusion ??? calcium gluconate 50 mg/mL in sodium chloride 0.9% infusion (Pedi) 1 g ??? thiamine (Vitamin B-1) (100 mg/mL) injection 100 mg ??? folic acid (Vitamin B9) (5 mg/mL) injection 1 mg ??? dexAMETHasone (PF) (Decadron) (10 mg/mL) injection 6 mg ??? ampicillin-sulbactam (Unasyn) 3 g vial attach to sodium chloride 0.9% 100 mL Mini-Bag Plus ??? calcium chloride 10% (100 mg/mL) injection ??? HYDROmorphone (Dilaudid) (2 mg/mL) multi-dose injection solution ??? sodium bicarbonate 8.4 % (1 meq/ml) IV solution ??? electrolyte replacement solution (pH 7.4) (Normosol-R, Plasmalyte-A) infusion ??? midazolam (pf) (Versed) (1 mg/mL) multi-dose injection ??? insulin regular (HumuLIN R,NovoLIN R) (100 unit/mL) injection vial ??? rocuronium (Zemuron) (10 mg/mL) multi-dose injection ??? lactated ringers infusion ??? ceFAZolin (Ancef) 1 g in dextrose 5% 50 mL infusion ??? ketamine (Ketalar) (10 mg/mL) IV bolus injection (Anesthesia) ??? NORepinephrine (Levophed) (16 mcg/mL) in dextrose 5% 250 mL infusion ??? dexmedeTOMIDine (Precedex) (4 mcg/mL) bolus injection (Anesthsia) ??? albumin (human) 5% 250 mL intravenous solution ??? dexmedeTOMIDine (Precedex) (4 mcg/mL) in sodium chloride 0.9% 50 mL infusion ON EXAMINATION Blood pressure 128/84, pulse (!) 128, temperature 37.6 ??C (99.7 ??F), temperature source Bladder, resp. rate 17, height 182.9 cm (6'), weight 101.8 kg (224 lb 6.9 oz), SpO2 99 %. I/O last 3 completed shifts: In: 6042.4 [I.V.:5465.4; Other:100; IV Piggyback:477] Out: 1075 [Urine:425; Other:100; Stool:550] I/O this shift: In: 1002 [I.V.:1002] Out: - Intubated, sedated Dialysis access: Temp IJ No jaundice No peripheral or sacral edema Seen and examined on CRRT. Tolerating procedure without net UF, Stable access flows and pressures LABS AND IMAGING Lab Results Component Value Date WBC 12.1 (H) 01/23/2022 Hemoglobin 17.6 (H) 01/23/2022 Hematocrit 50.3 (H) 01/23/2022 Platelets 184 01/23/2022 Recent Labs 01/23/22 0720 01/23/22 0449 01/23/22 0045 NA 141 < > 142 K 4.6 < > 7.6* CL 106 < > 102 CO2 14* < > 17* BUN -- -- 47* CREATININE 3.84* -- 4.42* GLUCOSE -- -- 143 < > = values in this interval not displayed. ASSESSMENT AND RECOMMENDATIONS Agree multiple indications for initiation of high-volume CRRT for management of acidosis, hyperkalemia in the setting of multiple organ system failure.. We will continue to follow. Thank you for involving us in the care of this patient Coty Jensen - 01/23/2022 9:19 AM EDT Critical Care Green Team Shared Progress Note Admitted: 01/23/2022 12:29 AM Hospital day: 0 ICU day: 0 ID: Alix Holland is a 31 y.o. male with PMH significant for hypertension, angioedema requiring intubation (unclear trigger), GERD, gastritis, esophagitis, and urachal cyst s/p I&D, and polysubstance use (including EtOH, cocaine, heroin)??who presents to the ICU on??01/23/2022??with cardiac arrests/p ROSC, likely due to hyperkalemia; incidentally found to be COVID-positive. Hospital/ICU course has been significant for: ?? S/p cardiac arrest, likely 2/2 to hyperkalemia in the setting of rhabdomyolysis and ALTHEA ?? Compartment syndrome of LUE--> to OR this AM for fasciotomy ?? AGMA 2/2 uremia and lactic acidosis ?? Transaminintis 2/2 shock liver ?? Incidental dx of COVID-19 infection 24-hour events: Found down but responsive at ~5pm yesterday by father. EMS called. He was given Narcan and Versed (?sz activity) by EMS. Patient had cardiac arrest enroute to [facility] ED for which Jitendra CPR was initiated. In pVT upon arrival--> defib x1 w/ ROSC at next pulse check. He was intubated for airway protection. Febrile and hypotensive post ROSC. Cefepime/Vanc given. Ultimately levophed gtt initiated for hypotension. Severely hyperkalemic w/ K>7. Cr 4.3, La>10, Bicarb 11, AG 35. Given shift therapy and2-3L IVF with K down to 5.4. Patient reportedly hypoxic w/ sat 95% on 100% FiO2. CXR negative. Utox +barbiturates, +opiates; -Tylenol, - salicylates, -ETOH. [place] [facility] [place] int[place] and ventilator-noncompliant. Ketamine boluses given for sedation.Aggressive IVF resuscitation (total 6L LR + LR@250cc/hr). Tachycardia improved with IVF. Bicarb, calcium gluconate, and insulin/D50 given two more times, RIJ HD line placed, and bicarbonate infusion initiated. Patient's LUE was noted to be cool and purple with no dopplerable pulse and cap refill >10sec. CK >220,000. Ortho consulted. Cap refill did improve some following IVF. Patient taken to ORthis AM for LUE fasciotomy. Hyperkalemia also improved to 5.9 following 3rd round of shift therapy and he spent ~30min on CRRT prior to going to OR with slight downtrend in his tachycardia. Last value Range last 24 hrs Temperature Temp: 37.6 ??C (99.7 ??F) Temp: [37.2 ??C (99 ??F)-38.2 ??C (100.8 ??F)] Heart Rate Heart Rate: (!) 138 Heart Rate: [133-152] Blood Pressure BP: 128/84 BP: (106-152)/(74-84) Respiratory Rate Resp: 17 Resp: [15-34] SpO2 SpO2: 99 % SpO2: [92 %-99 %] Art BP BP (Arterial Line): 111/68 BP (Arterial Line): (111-133)/(65-72) Infusions: ??? [SEP Hold] NORepinephrine Stopped (01/23/22 0647) ??? [SEP Hold] fentaNYL 75 mcg/hr (01/23/22 0800) ??? [SEP Hold] propofoL 30 mcg/kg/min (01/23/22 06) ??? [SEP Hold] lactated Ringers 250 mL/hr (01/23/22 0237) ??? [SEP Hold] sodium bicarbonate 150 mEq in dextrose 5% 1150 mL infusion 100 mL/hr (01/23/22 0655) ??? [SEP Hold] bicarbonate CRRT with 3 mEq/L K+, 3 mEq/L Ca++ Stopped (01/23/22729) ??? [SEP Hold] sodium phosphate Stopped (01/23/22729) ??? [SEP Hold] calcium gluconate Stopped (01/23/22729) Ventilator Settings: PS 18/10 30% Recent Labs 01/23/22 0721 01/23/22 0125 PHART 7.37 7.32* [id number] 28* 33* PO2ART 96 68* [id number] 15.7* 16.8* Intake/Output Summary (Last 24 hours) at 01/23/2022 09 Last data filed at 01/23/2022 0819 Gross per 24 hour Intake 6244.4 ml Output 1075 ml Net 5169.4 ml Output: 425cc UO Physical Exam: General: Young adult intubated male lying in bed currently sedated. HEENT: NC/AT; conjugate gaze, b/l sclera edema, MMM and pink; ETT/OGT in situ; trachea midline. Neuro: Sedated on propofol/fentanyl gtts; +RISHABH 3mm; no w/d to pain. Pulmonary: Chest symmetric; no retractions or use of accessory muscles; respirations regular, unlabored, vent compliant. No crepitus or subcutaneous air. Anterolateral lungs CTA bilaterally. Cardiovascular: S1/S2 tachycardic, no m/r/g. Abdomen: Abdomen rounded, symmetric; no visible masses or lesions; soft; ND; no guarding; no rigidity; BS hypoactive x4 quads. : Ayala catheter in situ draining turbid urine. Extremities: LUE warm, nonpitting edema that is worse distally, cap refill <3sec, no palpable pulse; LLE warm, no appreciable edema, cap refill <3sec; RUE warm, no edema, +RLE cool, no edema, +2DP pulse, cap refill <3sec, mottling of R knee w/ increased cap refill. Skin: Pale, warm, dry. Labs: Last 3 wbc, hgb, hct plt Recent Labs 01/23/22 0449 01/23/22 0045 04/28/21 0400 WBC 12.1* 22.6* 10.0* HGB 17.6* 21.5* 14.5 HCT 50.3* 63.2* 41.1 PLATELET 184 269 189 Last 3 Lytes Recent Labs 01/23/22 0720 01/23/22 0600 01/23/22 0449 01/23/22 0045 04/28/21 0400 04/27/21 0540 NA 141 140 -- 142 142 146* K 4.6 5.9* 6.6* 7.6* 3.5 3.8 CL 106 102 -- 102 108* 110* CO2 14* 15* -- 17* 23 23 BUN -- -- -- 47* 14 13 CREATININE 3.84* -- -- 4.42* 0.67* 0.66* Last 3 LFTs Recent Labs 01/23/22 0045 04/26/21 1955 AST >700* 19 ALT >700* 28 ALKPHOS 71 53 BILITOT 0.4 0.3 BILIDIR 0.2 -- Last Ca, Mg, Phos Recent Labs 01/23/22 0720 01/23/22 0045 CALCIUM -- 5.8* PHOS 6.1* 10.0* MAGNESIUM 0.81 1.08* Last 3 Coags Recent Labs 01/23/22 0155 01/23/22 0045 PT 14.4* Disregard INR 1.3 Disregard PTT 25 Disregard Last 3 ProBNP, Trop, CK Recent Labs 01/23/22 0600 01/23/22 0045 CK -- >220,000* TROPONINT 0.35* 0.43* Last 3 TFT Recent Labs 01/23/22 0045 04/26/21 2140 TSH 7.69* 0.57 Microbiology: Microbiology Results (Last 30 days) No results found for the last 720 hours. ECG: Sinus tachycardia, rate 147, ST depressions in multiple leads w/ peaked T waves. Imaging: Results for orders placed or performed during the hospital encounter of 01/23/22 XR Chest One View (Exam End: 01/23/2022 2:10 AM) Impression ET tube with its tip in appropriate position. Thank you for letting us participate in the care of this patient. If you are a health care provider and have any questions regarding this report, please contact the number below. For patients who have questions please contact the health nursing care attendant that requested your imaging first. Head wo Contrast (Generic) (Exam End: 01/23/2022 3:58 AM) Impression Globi pallidi infarcts. Mild cerebral edema. Thank you for letting us participate in the care of this patient. If you are a health care provider and have any questions regarding this report, please contact the number below. For patients who have questions please contact the health nursing care attendant that requested your imaging first. Electronically signed by: Rex Addison MD, [facility] ([phone]), at 01/23/2022 4:27 AM XR Abdomen 1 view (Generic) (Exam End: 01/23/2022 2:10 AM) Impression The tip of the NG tube is in the distal stomach with redundant tubing looped in the fundus. Thank you for letting us participate in the care of this patient. If you are a health care provider and have any questions regarding this report, please contact the number below. For patients who have questions please contact the health nursing care attendant that requested your imaging first. Electronically signed by: Jacky Mello MD, [facility] ([phone]), at 01/23/2022 8:[address] Chest wo Contrast (Generic) (Exam End: 01/23/2022 3:58 AM) Impression FINDINGS/IMPRESSION: Airways: Endotracheal tube tip 3.1 cm above the maia. Lungs/Pleura: Partial collapse of the LLL dorsally/medially. Mild dependent atelectasis bilaterally. Mediastinum/Kolton: Unremarkable. Cardiac/Vasculature: Unremarkable. Included Upper Abdomen: Esophagogastric tube loops within the fundus, terminating within the region of the pylorus. Fluid within the included upper small and large bowel segments. Osseous Structures: No acute abnormality identified. Thank you for letting us participate in the care of this patient. If you are a health care provider and have any questions regarding this report, please contact the number below. For patients who have questions please contact the health nursing care attendant that requested your imaging first. Electronically signed by: Rex Addison MD, [facility] ([phone]), at 01/23/2022 4:[address] Upper Extremity w Contrast Left (Exam End: 01/23/2022 3:58 AM) Impression Diffuse muscular hypoattenuation from the mid forearm into the hand could be sequela of edema/myositis or ischemia. Thank you for letting us participate in the care of this patient. If you are a health care provider and have any questions regarding this report, please contact the number below. For patients who have questions please contact the health nursing care attendant that requested your imaging first. Electronically signed by: Rex Addison MD, [facility] ([phone]), at 01/23/2022 4:58 AM XR Forearm Left (Generic) (Exam End: 01/23/2022 6:32 AM) Impression FINDINGS/IMPRESSION: No acute fracture of the radius or ulna seen. Diffuse soft tissue stranding and edema of the forearm. Preliminary report signed by: Alcira Queen at 01/23/2022 6:55 AM I have personally reviewed the image(s) and the resident's interpretation and agree with the findings, Rex Addison MD at 01/23/2022 7:14 AM Thank you for letting us participate in the care of this patient. If you are a health care provider and have any questions regarding this report, please contact the number below. For patients who have questions please contact the health nursing care attendant that requested your imaging first. Electronically signed by: Rex Addison MD, [facility] ([phone]), at 01/23/2022 7:14 AM XR Chest One View (Exam End: 01/23/2022 6:32 AM) Impression Right IJ central venous line with catheter tip projecting over the lower SVC. Preliminary report signed by: Alcira Queen at 01/23/2022 6:43 AM I have personally reviewed the image(s) and the resident's interpretation and agree with the findings, Rex Addison MD at 01/23/2022 6:56 AM Thank you for letting us participate in the care of this patient. If you are a health care provider and have any questions regarding this report, please contact the number below. For patients who have questions please contact the health nursing care attendant that requested your imaging first. Assessment: Alix is 31yo male who presents s/p pVT cardiac arrest, likely 2/2 to hyperkalemia in thesetting of rhabdomyolysis and ALTHEA. Two rounds of shift therapy given while patient was stabilized/lined and CRRT initiated prior to going to the OR. AGMA r/t uremia and lactic acidosis remains compensated. Lactate down trending. Markedly elevated transaminases likely 2/2 to shock liver post arrest. LUE/LLE assessed by ortho to have elevated compartment pressures and the patient was taken to the OR this morning for fasciotomies. Incidentally found to have a COVID-19 infection. No ground glass opacities noted on CXR and chest CT, however, LLL collapse and BLL atelectasis noted. Reported to be hypoxicat OSH but FiO2 weaned to 30% since [place] [facility] [place] He has also been febrile with Tmax 38.2. COVID-19 infection vs. possbile aspiration pneumonia. No signs of ARDS on imaging. Patient has also had multiple episodes of diarrhea since admission which may be explained by COVID-19 infection, however, cannot r/o possibility of mesenteric ischemia. HCT noted globi pallidi infarcts and cerebral edema. Discussed with neurology and they recommend MRI brain w/o contrast for further evaluation. Plan: Neuro: ?globi pallidi infarcts; cerebral edema ?? Followed commands overnight. Defer cEEG/TTM ?? MRI brain w/o contrast later today ?? Neurology will formally consult this afternoon. Appreciate their recs. ?? Continue propofol/fentanyl for sedation. Will re-assess sedation needs upon return from OR. ?? Maintain normothermia Pulm: COVID-19 infection; Possible aspiration PNA ?? Will re-assess need vent setting upon return from OR. Tolerating PSV 18/10 30% well prior to going to the OR. ?? Initiate Decadron 6mg daily per COVID-19 dosing protocol d/t fevers and diarrhea ?? Unasyn 3g q6h for possible aspiration PNA CV: Elevated Troponins w/ ST depressions on ECG ?? Formal TTE SARA. Fellow notified and will call tech in. ?? Maintain MAP >65. Restart levophed gtt if pressor needed. ?? Trend Troponin q6h ?? Plan to place LIJ TLC and remove R femoral TLC for CLABSI prevention GI: Transaminitis; Diarrhea; ETOH abuse ?? Hepatitis panel pending ?? Continue NAC for likely ischemic liver failure. Tylenol, salicylates, and ETOH negative on admission. ?? Trend LFTs daily. ?? Trend La q6h. If uptrends then low threshold to CTA abdomen/pelvis to evaluate for mesenteric ischemia ?? Rectal tube for diarrhea ?? IV thiamine 100mg daily ?? Folic acid 1mg daily ?? Monitor for ETOH withdrawal ?? IVP Protonix 40mg BID for GI PPx Renal/FEK: Rhabdomyolysis; Hyperkalemia; Hypocalcemia; ALTHEA; AGMA ?? CRRT for severe hyperkalemia. Run UF even. ?? Consult to nephrology, appreciate their input. ?? 1g Calcium gluconate for persistent hypocalcemia ?? Continue bicarb gtt for now ?? q6h lytes ?? Monitor UO ?? Avoid nephrotoxic drugs MSK: LUE/LLE compartment syndrome -To OR this AM for LUE/LLE fasciotomies with orthopedics. Further management per their recs post-op. -Trend CK q6h -LR @250cc/hr Hematology: ?? No coagulopathy/anemia. ?? SQ Heparin 5,000 units q8h for DVT PPx ID: ?? Cx pending ?? Starting Decadron and Unasyn per plan above. Endocrine: ?? SSI per protocol w/ q4h BG checks. Goal BG 140-160. Other prophylaxis: SQ Heparin for DVT prophylaxis IVP Protonix for GI prophylaxis HOB > 30 : Y Chlorhexidine mouth care: Y Mepliex to sacrum: Y PT/OT: Y Lines/Tubes/Drains: RIJ trialysis line; ETT; OGT; R femoral TLC; Ayala; Rectal tube Consults: Neurology, Nephrology, Orthopedics Decision Making: Father Code Status: Full Code Coty Jensen January 23, 2022 Critical Care Green Team (pager [phone]) Tex Robles MD - 01/23/2022 8:22 AM EDT MICU STAFF ADMISSION NOTE Critical Care Medicine Author: Tex Robles MD Patient seen and examined on admission to the ICU. HPI Alix Holland is a 31 y.o. male with PMH of Polysubstance abuse including alcohol, HTN with prior treatment for lisinopril, GERD was brought to [facility] via EMS today after he was notedto have a cardiac arrest. He had a hospital [place] [facility] [place] for [place]ioed[place]. During that admission, he had initially presented at [facility] with facial and oropharyngeal swelling and had to be fibreoptically intubated in the OR. He was transferred [place] [facility] [place] management and received treatment with prednis one and benadryl. His work up included testing for C4 complement, tryptase as well as CRP which was normal. He was successfully extubated on 04/27. He did have a Utox at that time given his h/o substance abuse and was noted to be positive for benzos and fentanyl. He was given phenobarb for alcohol withdrawal. The patient was found by his father today at 5 pm with impaired cognition. He was able to answer some questions and was tachypneic. The patient did admit to taking fentanyl. The time time for the patient was unknown. He had complained of left upper extremity pain. EMS was called and en route to [facility], he was noted to be in possible SVT. He was given narcan which did not help. The details are slightly uncertain/unclear. On arrival to [facility], he was noted to have a V. tach arrest for which she was shocked. He is lab work was consistent with hyperkalemia with a potassium of 7.8 for which she received multiple doses of sodium bicarbonate, calcium gluconate and insulin/D10 with improvement in potassium to5.4. He was also intubated at [facility] and was transferred to [facility] [place] management. He was found to be COVID-positive at [facility]. On arrival to [facility] [place], he was again noted to be hyperkalemic with a potassium of 7.6 for which she was given shift therapy his EKG demonstrated peaked T waves and his left upper extremity was noted to be cool/firm concerning for compartment syndrome. His lab work also revealed rhabdomyolysis with a CK of greater than 10-2 0000. Ortho was consulted and he was taken to the OR this morning for fasciotomies. Given persistent hyperkalemia, CRRT was also initiated. He was febrile on arrival to OSH and and [place] [facility] [place] was weaned to minimal oxygen support. CT chest was clear apart from partial collapse of left lower lobe and dependent atelectatic change. Interval Events - Recieved 2 rounds of shift therapy for hyperkalemia. Started CRRT. - taken by Ortho for a fasciotomy - Weaned off Levophed. PMH: Polysubstance abuse H/O angioededema HTN GERD Fracture of metacarpal bone Cellulitis Urachal cyst EXAM: Exam done by CHRISTA today given COVID precautions. [facility] [place] and studies: WBC 4.1 hemoglobin 17.6 hematocrit 50.3 platelets 184 PT 14.4 INR 1.3 PTT 25 ABG 7.3 02/26/96 Sodium 141 potassium 4.6 chloride 106 bicarb 14 BUN 21 creatinine 3.84 iCal 0.90 lactate 5.5 U tox positive for barbiturates, benzodiazepines, fentanyl, oxycodone Patient Lines/Drains/Airways Status Active Tubes/Lines/Drains Name Placement date Placement time Site Days Percutaneous Central Line - Triple Lumen 01/23/22 0037 femoral vein, right 01/23/22 0037 -- less than 1 Rectal Tube 01/23/22 0600 fecal management system 01/23/22 0600 -- less than 1 Urethral Catheter 01/23/22 0035 01/23/22 0035 -- less than 1 Naso/Oral Tube 01/23/22 0059 Cecil sump left nostril 01/23/22 0059 left nostril less than 1 ETT Airway 01/23/22 0116 01/23/22 0116 -- less than 1 Arterial Line 01/23/22 0130 radial artery, right 01/23/22 0130 -- less than 1 Drips : HCO3 gtt,. LR @ 250, prop @ 30 fentanyl @ 75 Vent : 18/10, 30% FiO2 Active problems: Acute hypoxic respiratory failure Fentanyl OD Metabolic acidosis Lactic acidosis COVID 19 Transaminitis likely shock liver Global pallidi infarcts Mild cerebral edema. Rhabdomyolysis Compartment syndrome Metabolic acidosis. Diarrhea ASSESSMENT, MANAGEMENT, and DECISION MAKING: NEURO Global pallidi infarcts Mild cerebral edema. Fentanyl OD - Patient is intubated and sedated, Will continue versed given patient had some hypotension with propofol. Continue neuro checks Consult neuro for the infarcts noted. - Avoid hyperthermia. PULM Acute hypoxic respiratory failure Possible aspiration PNA - Could be in the setting of patients worsening mental status. CXR does not show any significant evidence of PNA - Continue PSV protocol - Also noted to be COVID positive without classic radiographic findings. Will start Decadron. - Start Unasyn. CVS ST depressions on EKG V.tach Cardiac arrest Elevated troponin could be demand ischemia Shock in the setting of cardiac arrest - patient did have a Vtach arrest which was thought to be secondary to hyperkalemia. However, he also had significant EKG changes. ECHO ordered. TTM was not done last night as the patient was awake and following commands. - Trend troponins RENAL ALTHEA/hyperkalemia Rhabdomyolysis Lactic acidosis -Patient has been started on CRRT - continue LR -Trend lactate every 6 hours ID COVID 19 - Patient was noted to have COVID on surveillance testing. Start decadron. ORTHO Compartment syndrome - Taken to the OR for fasciotomy today ENDO Elevated blood sugars - Continue ISS GI Transaminitis likely shock liver Tylenol and salicylate levels were negative at OSH. Hepatitis panel was pending. Trend transaminases Does have some diarrhea which could be secondary to COVID. If does not improve, will send stool studies Px : Pantoprazole/Hep sc IS PATIENT CRITICALLY ILL ? Is there a high potential of sudden, clinically significant, or life threatening deterioration? Yes Is there a need for direct personal assessment and management to treat/prevent multiple vital organfailure/deterioration? Yes If this patient is not critically ill, I certify the patient requires in-patient hospitalization forNA PATIENT IS CRITICALLY ILL WITH THESE DIAGNOSES BEING MANAGED BY [facility] TEAM: Active problems: Acute hypoxic respiratory failure Fentanyl OD COVID 19 Transaminitis likely shock liver Global pallidi infarcts Mild cerebral edema. Rhabdomyolysis Compartment syndrome Diarrhea I personally performed 60 mins of aggregate critical care time exclusive of procedures and teaching.This includes time spent during direct patient evaluation and reassessment, interpreting diagnostic tests, directing life and/or organ supporting interventions and documentation on the unit. TEX ROBLES MD Melchor Wen MD - 01/23/2022 4:37 AM EDT [facility] [place] Initial Assessment Note I established audio/visual communication with the patient's room, reviewed the eDH, and discussed the patient's case with transfer center and ICU fellow. History and Assessment: 31 y.o. male w/ PMHx of HTN, angioedema and polysubstance abuse (cocaine, EtOH and heroin) transferred from [facility] ED after having presented there with an qdg-af-mviflpnw arrest. He reportedly took fentanyl. EMS administered Narcan and IM Versed without improvement. He reportedly had VT in The 220s and had CPR; intubated and defibrillated in ED. Labs showed hyperK+ of 7.8 which improved to 5.4with D50/insulin/HCO3; he also received calcium. Creatinine was 4.3 and lactate was > 10. U tox was (+) for barbiturates, oxycodone and opioids. He also tested (+) for COVID-19. pCXR @ does not show any evidence of an aspiration event. CAMERA: Intubated DRIPS: Fentanyl 50 mcg/hr NE 8 mcg/min Propofol 20 mcg/kg/min Patient Vitals for the past 8 hrs: BP Temp Temp src Pulse Resp SpO2 Height Weight 01/23/22 0413 -- -- -- -- 25 99 % -- -- 01/23/22 0200 -- (!) 38.2 ??C (100.8 ??F) Bladder (!) 152 29 92 % -- -- 01/23/22 0116 -- -- -- -- (!) 34 93 % 182.9 cm (6') 101.8 kg (224 lb 6.9 oz) 01/23/22 0100 128/84 -- -- (!) 143 -- 94 % -- -- 01/23/22 0055 152/74 -- -- (!) 148 -- 95 % -- -- 01/23/22 0050 117/81 -- -- (!) 147 -- 94 % -- -- 01/23/22 0045 107/82 -- -- (!) 147 -- 94 % -- -- 01/23/22 0039 106/81 37.2 ??C (99 ??F) Axillary (!) 147 -- 92 % 182.9 cm (6') -- 01/23/22 0031 -- -- -- (!) 145 17 98 % -- -- Recent Results (from the past 12 hour(s)) POCT Glucose Result Value POC Glucose 146 Prothrombin Time Result Value PT Disregard INR Disregard APTT Result Value PTT Disregard Fibrinogen Result Value Fibrinogen Disregard Hepatic Function Panel Result Value Total Protein 5.9 (L) Albumin 3.1 (L) AST >700 (H) ALT >700 (H) Alk Phos 71 Total Bilirubin 0.4 Bili, Direct 0.2 Magnesium Result Value Magnesium 1.08 (H) Phosphorus Result Value Phosphorus 10.0 (CRIT) Basic Metabolic Panel (non-fasting) Result Value Glucose Lvl 143 BUN 47 (H) Creatinine 4.42 (H) Sodium 142 Potassium 7.6 (CRIT) Chloride 102 CO2 17 (L) Anion Gap 23 (H) Calcium 5.8 (CRIT) Estimated GFR 17 (L) Troponin Result Value Troponin-T 0.43 (H) CK Result Value CK, Total >220,000 (H) TSH [place] Result Value TSH 7.69 (H) ABO/Rh Typing Result Value ABORh Type A Pos Antibody screen Result Value Ab Screen Interp Negative Expires at 2359 on: 01/26/2022 ABORH Recheck Status Result Value ABORH Recheck Order Order Placed ABORH Type Recheck Complete Hemogram Result Value WBC 22.6 (H) RBC 6.64 (H) Hemoglobin 21.5 (CRIT) Hematocrit 63.2 (H) MCV 95.2 (H) MCH 32.4 (H) MCHC 34.0 Platelets 269 RDWSD 43.9 RDWCV 12.3 MPV 9.7 nRBC % Auto 0.3 nRBC Abs Auto 0.060 (H) Differential, Automated Result Value Neutrophils % 71.4 Neutr Abs (ANC) 16.11 (H) Lymphocytes % 17.4 Lymphocytes Abs 3.9 (H) Monocytes % 9.3 Monocyte Abs 2.1 (H) Eosinophils % 0.0 Eosinophils Abs 0.0 Basophils % 0.5 Basophils Abs 0.1 Immature Gran % 1.40 Gemini Gran Abs 0.31 (H) Scan, Peripheral Blood Result Value Plat Estimate Normal RBC Morphology Normal Type and Screen Validity Result Value T&S only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 Tegaderm. Findings: The patient did tolerate the procedure well. No Complications. Procedure Comments: CARLITA MALIK RN 03/03/2022 Rogers Solano APRN - 02/07/2022 12:52 PM EDTAssociated Order(s): CENTRAL LINE Procedure(s): CENTRAL LINE Pre-Procedure Diagnose(s): Traumatic rhabdomyolysis, subsequent encounter Post-Procedure Diagnose(s): Traumatic rhabdomyolysis, subsequent encounter Central Line Placement Procedure Note Items highlighted in red are State Reported items for central line compliance documentation. Procedure Diagnosis: Rhabdomyolysis leading to acute renal failure requiring CRRT Risks and Benefits reviewed: yes. Informed Consent obtained: yes Reason for insertion: new central line - re-wire of existing trialysis cathereter Time out performed and documented: yes Hand Hygiene performed: Yes Skin prepped with: chlorhexidine Skin prep agent completely dry at time of first puncture: yes Sterile drape: large sterile drape used Mask/eye shield: mask/eye shield used Large sterile gown: large sterile gown used Sterile gloves: sterile gloves used Cap worn: cap worn Ultrasound guidance used for insertion: Yes Kit type used: An 18 Ga. X 2.5 inch needle was placed in vein after blood return identified. Guided by a 0.035 inch diameter guide wire, a 3 lumen, 15 cm catheter was inserted using the Seldinger Technique. Catheter type: CVL Tunneled/Non Tunneled: non tunneled Insertion Site: jugular (internal) Insertion Side: right Number of attempts: 1 Insertion successful: Yes Catheter sutured at the skin at: 15 cm . Sterile dressing: Chlorhexidine Tegaderm Findings: Patient tolerated procedure well., Blood returned appropriately., Wire confirmed with ultrasound guidance upon removal of previous trialysis line and prior to insertion of new trialysis catheter Complications: No Complications. Chest X-ray ordered: yes Patient location at time of insertion: ICU 4 [facility] Rogers Solano APRN Collette Rivas PA - 02/06/2022 5:58 AM EDTAssociated Order(s): INSERT ARTERIAL LINE Arterial Line Placement Procedure Note Indication for Procedure: Arterial line was placed for invasive blood pressure monitoring, arterial blood gases and blood sampling for laboratory test. Procedure Diagnosis: Hemorrhagic Shock Location of Procedure: Critical Care. Risks and Benefits: The risks and benefits of this procedure were reviewed and verbal consent was obtained. Time Out: Prior to the start of the procedure, the patient's identity, intended procedure, site/side, correct patient positioning and presence of the site cyndi was confirmed as applicable. The medical history and chart were reviewed to rule out potential contraindications to the planned procedure. Hand Hygiene: The director of business applications did perform hand hygiene prior to arterial line insertion. Procedure Prep: Sterile draping was applied. Skin was prepped with chlorhexidine. 5 ml of 1% Lidocaine was used for local anesthesia. Procedure Details: A 18 gauge, 12 cm catheter was placed in the right femoral artery and secured with suture. Ultrasound was used for guidance. Guide wire was used in this procedure. The guide wire hada diameter of .018 inches. There was 1 attempt. Findings: There were no procedure complications. Blood was drawn with ease. Good wave form. Procedure Comments: N/A Cecilio Tubbs Jr., MD - 02/06/2022 12:53 AM EDT Arterial Line Placement Procedure Note Indication for Procedure: Arterial line was placed for invasive blood pressure monitoring, arterial blood gases and blood sampling for laboratory test. Procedure Diagnosis: Unsuccessful attempt at placement of right radial arterial line Location of Procedure: Critical Care. Risks and Benefits: The risks and benefits of this procedure were reviewed and informed consent was obtained. Time Out: Prior to the start of the procedure, the patient's identity, intended procedure, site/side, correct patient positioning and presence of the site cyndi was confirmed as applicable. The medical history and chart were reviewed to rule out potential contraindications to the planned procedure. Hand Hygiene: The director of business applications did perform hand hygiene prior to arterial line insertion. Procedure Prep: Sterile draping was applied. Skin was prepped with chlorhexidine. Procedure Details: Four total attempts by two operators to place a right radial arterial line under ultrasound guidance were unsuccessful. Diminutive artery. Pressure was held and there were no immediate complications. Findings: There were no procedure complications. Procedure Comments: As above. Associated attestation - Dunia Han DO - 02/09/2022 7:30 PM EDT [facility] ATTENDING ATTESTATION NOTE I supervised the resident for the above procedure, but was not present during the hutton portions. For the purposed of billing, the resident performed the procedure. Coty Jensen - 01/23/2022 4:12 PM EDTProcedure(s): CENTRAL LINE Pre-Procedure Diagnose(s): Cardiac arrest Post-Procedure Diagnose(s): Cardiac arrest Central Line Placement Procedure Note Items highlighted in red are State Reported items for central line compliance documentation. Procedure Diagnosis: cardiac arrest Risks and Benefits reviewed: yes. Informed Consent obtained: yes Reason for insertion: new central line Time out performed and documented: yes Hand Hygiene performed: Yes Skin prepped with: chlorhexidine Skin prep agent completely dry at time of first puncture: yes 0 ml of 1% lidocaine was used for local anesthesia. Sterile drape: large sterile drape used Mask/eye shield: mask/eye shield used Large sterile gown: large sterile gown used Sterile gloves: sterile gloves used Cap worn: cap worn Ultrasound guidance used for insertion: Yes Kit type used: An 18 Ga. X 2.5 inch needle was placed in vein after blood return identified. Guided by a 0.032 inch diameter guide wire, a 7 Fr., 3 lumen Catheter 20 cm in length antibiotic impregnatedcatheter was inserted using the Seldinger Technique. Catheter type: CVL Tunneled/Non Tunneled: non tunneled Insertion Site: jugular (internal) Insertion Side: left Number of attempts: 1 Insertion successful: Yes Catheter sutured at the skin at: 20 cm . Sterile dressing: Chlorhexidine Tegaderm Findings: Patient tolerated procedure well., Blood returned appropriately., Wire visualized w/ US incompressible LIJ prior to dilation. Complications: No Complications. Chest X-ray ordered: yes Patient location at time of insertion: [address] Procedure Comments: Entire procedure supervised by OTIS Nguyen PentCristina tucker APRN - 01/23/2022 6:25 AM EDTAssociated Order(s): CENTRAL LINE Pre-Procedure Diagnose(s): ALTHEA (acute kidney injury) Post-Procedure Diagnose(s): ALTHEA (acute kidney injury) Central Line Placement Procedure Note Items highlighted in red are State Reported items for central line compliance documentation. Procedure Diagnosis: Rhabdomyolysis, hyperkalemia, ALTHEA Risks and Benefits reviewed: yes. Informed Consent obtained: yes- verbal consent obtained from pt's father Reason for insertion: new central line Time out performed and documented: yes Hand Hygiene performed: Yes Skin prepped with: chlorhexidine Skin prep agent completely dry at time of first puncture: yes 5 ml of 1% lidocaine was used for local anesthesia. Sterile drape: large sterile drape used Mask/eye shield: mask/eye shield used Large sterile gown: large sterile gown used Sterile gloves: sterile gloves used Cap worn: cap worn Ultrasound guidance used for insertion: Yes Kit type used: An 18 Ga. X 2.5 inch needle was placed in vein after blood return identified. Guided by a 0.035 inch diameter guide wire, a 13 , 3 lumen, 15 cm catheter was inserted using the Seldinger Technique. Catheter type: CVL- Hemodialysis Tunneled/Non Tunneled: non tunneled Insertion Site: jugular (internal) Insertion Side: right Number of attempts: 1 Insertion successful: Yes Catheter sutured at the skin at: 15 cm . Sterile dressing: Chlorhexidine Tegaderm Findings: Patient tolerated procedure well., Blood returned appropriately. Complications: No Complications. Chest X-ray ordered: yes Patient location at time of insertion: ICU 3 [place] Procedure Comments: Prior to dilation wire was visualized via ultrasound entering large, collapsible vessel in both transverse and longitudinal planes. All ports had positive blood return and were able to be flushed without difficulty. Cristina Hillman APRN Cristina Hillman APRN - 01/23/2022 2:16 AM EDTAssociated Order(s): INSERT ARTERIAL LINE Pre-Procedure Diagnose(s): Hypotension, unspecified hypotension type Post-Procedure Diagnose(s): Hypotension, unspecified hypotension type Arterial Line Placement Procedure Note Indication for Procedure: Arterial line was placed for invasive blood pressure monitoring and arterial blood gases. Procedure Diagnosis: Hypotension requiring vasopressors. Location of Procedure: Critical Care. Risks and Benefits: The risks and benefits of this procedure were not reviewed and informed consent was not obtained due to emergent nature of this procedure Time Out: Prior to the start of the procedure, the patient's identity, intended procedure, site/side, correct patient positioning and presence of the site cyndi was confirmed as applicable. The medical history and chart were reviewed to rule out potential contraindications to the planned procedure. Hand Hygiene: The director of business applications did perform hand hygiene prior to arterial line insertion. Procedure Prep: Sterile draping was applied. Skin was prepped with chlorhexidine. Procedure Details: A 20 gauge, 2 inch catheter was placed in the right radial artery and secured with tape and steri-strips. Tegaderm was applied. Ultrasound was used for guidance. Guide wire was used in this procedure. The guide wire had a diameter of .018 inches. There was 1 attempt. Findings: There were no procedure complications. Blood was drawn with ease. Good wave form. Procedure Comments: N/A documented in this encounter Nursing Notes Marcio Peters RN - 03/13/2022 9:06 AM EDT OR Nursing Note: Wound vacs removed from left arm and left leg. Dressings applied by Dr. Betancourt and Dr. Alonzo. Nursing communication order placed for MD ONLY to change dressings on left arm and leftleg. One piece of saline soaked 4x4 gauze placed in the superior portion of the wound. Sarah Patricia RN - 02/24/2022 11:[address] Betancourt removed 1 black sponge out of the arm, and replaced with 1 black sponge. Removed 3 black sponges from leg, and replaced with 1 black sponge. Sarah Patricia RN documented in this encounter Miscellaneous Notes Care Management Discharge - Lizzy Love RN - 03/23/2022 1:59 PM EDT CARE MANAGEMENT FINAL DISCHARGE NOTE Chart reviewed, care reviewed with primary team and at interdisciplinary rounds. Patient is medically ready for discharge to [facility] for acute rehab. Per [facility], patient can have PICC line in place for discharge. Needs for Transition of Care: Plan for discharge is: Acute Rehab Transportation: ambulance , [facility] [facility] 2:30pm Wheelchair van/Ambulance? Yes Ambulance transportation is medically necessary at discharge related to LUE, LLE Compartment syndrome, requires attendant, unable to tolerate complete ride sitting up . I have discussed Medicare/Private Insurance reimbursement guidelines for ambulance transport. Fatherand son verbalize understanding of their potential financial obligation and agree with ambulance transport. Functional status prior to admission: Independent Home Environment: Others in the home: parent(s) (lives with dad). Current Living Arrangements: home/apartment/condo. Accessibility Concerns:Per PT 03/16/2022: Home setup: Pt lives with his father in a two level home with a couple BERNADETTE. Pt's bedroom and bathroom are on the first floor. The bathroom has a tub shower. 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 Enjoys hunting and fishing. DME: none. 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 All are in agreement with plan. Lizzy Love RN, BSN Case Management Consult Note - Dilia Lemons - 03/23/2022 8:40 AM EDT BIT Evaluation Referral source: Follow up Reason for referral: Recovery support Relevant history: RC stopped in briefly to chat with Valeriy, but he was just starting PT. RC asked Valeriy if he thought he was leaving today. He wasn't sure, however, RC just wanted to make sure he had her number and knew what to do to set up out patient Suboxone once at [facility]. RC plans to call patient later today Assessment: Valeriy was welcoming and friendly. He was just starting PT so RC didn't stay long Interventions delivered: Other: Peer Support Plan: RC will continue to be available to patient via phone after DC Outstanding Discharge Needs: At time of discharge patient may require a buprenorphine script to bridge to outpatient MAT appointment, please page Psychiatry at [phone] if you need assistance with this. Time spent with the patient (min):15 minutes Time spent on case coordination (min): 15 minutes Plan of Care - Betzaida Francois RN - 03/23/2022 2:07 AM EDT Temp: [36.7 ??C (98.1 ??F)-37.4 ??C (99.3 ??F)] Heart Rate: [124] Resp: [15-20] BP: (141-155)/(90-110) SpO2: [96 %-100 %] Heart Rate from SpO2: [124 bpm-132 bpm] OUTCOME EVALUATION NOTE: OUTCOME SUMMARY: Alix had a quite night. AxO VSS on RA. Pt did not get out of bed during this shift. Pt has tamie Band-Aid dressing to his LUE and LLE. Dressing CDI. Pain relieved with scheduled medications and oxycodoneas needed. Voids adequately in urinal. PLAN MOVING FORWARD: Monitor I&O, Encourage Ambulation, Monitor PO tolerance, Maintain Safety, Discharge Planning CPG GOAL OUTCOME EVALUATION: Ongoing Care Management - Lizzy Love RN - 03/22/2022 2:53 PM EDT OFFICE OF CARE MANAGEMENT PROGRESS NOTE LOS: Hospital Day 58 days Chart reviewed, care reviewed with primary team and at interdisciplinary rounds. [place] for possible admission. Requested provider to provider to discuss Suboxone plan. Discharge plan michelle determined. Functional status prior to admission: Independent Home Environment: Others in the home: parent(s) (lives with dad). Current Living Arrangements: home/apartment/condo. Accessibility Concerns: Per PT 03/16/2022: Home setup: Pt lives with his father in a two level home with a couple BERNADETTE. Pt's bedroom and bathroom are on the first floor. 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 Enjoys hunting and fishing. DME: none. 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: Assistive Person and Equipment DME used at home: none Patient is insured through: Primary Insurance: [place] / Plan: [place] / Product Type: *No Product type* / Secondary Insurance: N/A Last Physical Therapy Recommendation: acute rehabilitation facility with to be determined Last Occupational Therapy Recommendation: acute rehabilitation facility with to be determined Plan for discharge is: Acute Rehab Agency Referrals: Sahil Edgar Transportation: ambulance Ambulance Finance Concersation Completed: 03/16/2022 Spoke to: patient Verbalized Understanding: Yes Barriers to discharge: Discharge planning Psych: Adjustment to diagnosis/illness, Coping/stress Plan going forward: Care Management will continue to follow and assist with discharge planning and coordination of care as indicated. Anticipated Date of Discharge: 03/22/2022 Lizzy Love RN, BSN Case Management Consult Note - Dilia Lemons - 03/22/2022 11:30 AM EDT BIT Evaluation Referral source: Follow up Reason for referral: Recovery support Relevant history: Valeriy was laying in bed when RC arrived. LILLIE and Valeriy discussed outpatient Suboxone provider. He has spoken with [facility] in [place]. He plans to see them after DC from rehab. Assessment: Patient is welcoming and friendly. He is planning on pursuing recovery. He has started Suboxone while inpatient. Interventions delivered: Other: Peer Support Plan: RC will continue to follow patient for duration of admission RC will continue to be available to patient via phone after DC Outstanding Discharge Needs: At time of discharge patient may require a buprenorphine script to bridge to outpatient MAT appointment, please page Psychiatry at [phone] if you need assistance with this. Time spent with the patient (min):45 minutes Time spent on case coordination (min): 15 minutes Plan of Care - Brittney Ann RN - 03/21/2022 5:27 AM EDT OUTCOME EVALUATION NOTE: OUTCOME SUMMARY: Pt A&Ox4 throughout shift. Pt tolerating High Protein diet w/out complaints of N/V. Pts R DL PICC saline locked, tolerating well. Pt did not ambulate during shift. Pt w/multiple wound/incision sites, tolerating w/complaints of pain relieved with scheduled medications and oxycodone 15mg as needed. Pt voiding QS via urinal, no c/o pain. Pt has not moved bowels over this shift. Pt able to rest between care. Bed Alarm activated for safety. PLAN MOVING FORWARD: Monitor Pain, Monitor I&O, Encourage Ambulation, Monitor PO tolerance, Maintain Safety, Discharge Planning INDIVIDUALIZED FALL PREVENTION INTERVENTIONS: Patient-specific fall risk factors per assessment: [current deficits]: Narcotics, History of falls, Needs assistance getting out of bed or chair, Pain with movement/ambulation. Assistance [level of assistance required for transfers and ambulation]: Walker, Non-skid shoes/slippers, 2 person assist, stand by Supervision [direct monitoring required during toileting and ADLs]: Hands on Surveillance [continuous indirect monitoring]: Purposeful rounding, Call starks in reach, Bed alarm, Direct observation Patient-specific fall prevention interventions for sensory deficits provided, if applicable: [X] YesLight adjusted for task/safety CPG GOAL OUTCOME EVALUATION: Plan of Care - Geoffrey Hunt RN - 03/20/2022 6:44 PM EDT OUTCOME SUMMARY: ?? Pt A&Ox4; flat affect at times. Pain 7-10/10 in LLE-given prn oxycodone which keeps pain tolerable per pt. PERRLA. L. Arm and L. Leg weakness; pt able to move moderately. Pulses palpable. Denies SOB-lungs clear. Pt tachycardiac 100s-120s (does not sustain in 120s)and BP elevated throughout the day-SBP 140s and DBP low 100s which is unchanged for pt. Numbness present in LUE, RLE, and??LLE which isunchanged per pt.??Pt has dry, flaky skin on hands and feet-lotion applied.??Dressings to LUE and LLE changed per flowsheet by this RN. 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 Pt able to get OOB 2 assist w/ gait belt-walked a few steps to wheelchair. Pt went outside with father-MD aware and gave pt permission toleave the floor while with family. While in bed frequent turns d/t blanchable redness on buttock from moisture-barrier cream applied and pad changed as needed. Foam boots to BLE. C.diff precautions d/naveed yesterday-pt room changed to [facility] so previous room can be cleansed per protocol. VSS.??WCTM. ?? PLAN MOVING FORWARD: ?? Pain control. Encourage movement.??Lotion to dry skin in hands and feet.? INDIVIDUALIZED FALL PREVENTION INTERVENTIONS: ?? Patient-specific fall risk factors per assessment: [current deficits]:?Generalized weakness; 2 assist OOB w/gait belt ? Assistance [level of assistance required for transfers and ambulation]:?2 assist stand-pivot? Supervision [direct monitoring required during toileting and ADLs]:?Hands on 2 assist stand-pivot? Surveillance [continuous indirect monitoring]:?Masimo? Patient-specific fall prevention interventions for sensory deficits provided, if applicable:?[X] Yes??chair alarm on; room near nurse's station; frequent checks? CARE PLAN GOAL OUTCOME EVALUATION:? Plan of Care - Willie Cochran RN - 03/20/2022 3:04 AM EDT OUTCOME EVALUATION NOTE: OUTCOME SUMMARY: Patient has been sleeping intermittently throughout the night. VSS. Utilizing the urinal while in bed. All dressings remain intact. Refusing prevlon boots at times. Rationale explained. Repositioning for preventative measure. No acute issues noted @ this time. PLAN MOVING FORWARD: Will continue to monitor, maintain dressings, encourage/assist repositioning, monitor graft site, offer assistance, and otherwise tx as necessary/ordered. INDIVIDUALIZED FALL PREVENTION INTERVENTIONS: Patient-specific fall risk factors per assessment: [current deficits]: L sided weakness, generalizedweakness, PIV Assistance [level of assistance required for transfers and ambulation]: 2 assist, gait belt Supervision [direct monitoring required during toileting and ADLs]: Hands on/eyes on Surveillance [continuous indirect monitoring]: Bed alarm, purposeful rounding Patient-specific fall prevention interventions for sensory deficits provided, if applicable: [X] No CPG GOAL OUTCOME EVALUATION: Plan of Care - Geoffrey Hunt RN - 03/19/2022 8:19 PM EDT OUTCOME SUMMARY: Pt A&Ox4. Pain 7-9/10 in LLE-given prn oxycodone which keeps pain tolerable per pt. PERRLA. L. Arm and L. Leg weakness; pt able to move moderately. Pulses palpable. Denies SOB-lungs dim in lower lobes. Pt tachycardiac and BP elevated throughout the day-last BP at 1456 elevated at 147/100 which is around pt's usual BP. Numbness present in LUE, RLE, and LLE which is unchanged per pt. Pt has dry, flaky skin on hands and feet-lotion applied. Dressings to LUE and LLE changed per flowsheet by this RN.RLE PEG per MD instructions. Pt able to get OOB 2 assist w/ gait belt-walked a few steps to chair. While in bed q.2turns d/t blanchable redness on buttock from moisture-barrier cream applied and pad america nged as needed. Foam boots to BLE. C.diff precautions d/naveed today. VSS. Hand-off report given. ?? PLAN MOVING FORWARD: ?? Pain control. Encourage movement.??Lotion to dry skin in hands and feet. ?? INDIVIDUALIZED FALL PREVENTION INTERVENTIONS: ?? Patient-specific fall risk factors per assessment: [current deficits]:?Generalized weakness; 2 assist OOB w/gait belt ? Assistance [level of assistance required for transfers and ambulation]:?2 assist stand-pivot? Supervision [direct monitoring required during toileting and ADLs]:?Hands on 2 assist stand-pivot? Surveillance [continuous indirect monitoring]:?Masimo? Patient-specific fall prevention interventions for sensory deficits provided, if applicable:?[X] Yes??chair alarm on; room near nurse's station; frequent checks? CARE PLAN GOAL OUTCOME EVALUATION:? Consult Note - Dilia Lemons - 03/19/2022 11:50 AM EDT BIT Evaluation Referral source: Follow up Reason for referral: Recovery support Relevant history: arrived to find Valeriy laying in bed. and Valeriy called [facility] to set up out patient provider. Valeriy left a message and is waiting for them to call him back. Some visitors showed up to see him so excused herself. Assessment: Valeriy is welcoming and friendly. He is feeling good about starting Suboxone. He is waiting to here back from out patient provider. Interventions delivered: Other: Peer Support Plan: RC will follow up with patient next week Outstanding Discharge Needs: At time of discharge patient may require a buprenorphine script to bridge to outpatient MAT appointment, please page Psychiatry at [phone] if you need assistance with this. Time spent with the patient (min):30 minutes Time spent on case coordination (min): 15 minutes Care Management - Lizzy Love RN - 03/18/2022 4:41 PM EDT Physician Certification Statement for Non-Emergency Ambulance Services Section I - General Information Alix Holland 1990 Medicare Number: n/a Transport Date: 03/23/2022 (PCS is valid for round trips on this date and for all repetitive trips in the 60-day range as notedbelow.) [place] [facility] [place] [facility] Is the patient's stay covered under Medicare Part A (PPS/DRG)?: No Closest appropriate facility? Yes Transfer Type: N/A Section II - Medical Necessity Questionnaire Ambulance Transportation is medically necessary only if other means of transport are contraindicatedor would be potentially harmful to the patient. To meet this requirement, the patient must be eitherbed confined or suffer from a condition such that transport by means other than ambulance is contraindicated by the patient's condition. The following questions must be answered by the medical professional signing below for this form to be valid: 1) Describe the MEDICAL CONDITION (physical and/or mental) of this patient AT THE TIME OF AMBULANCE TRANSPORT that requires the patient to be transported in an ambulance and why transport by other means is contraindicated by the patient's condition: s/p VT arrest; L forearm and L thigh compartment syndrome (s/p L forearm, L buttock, and L thigh fasciotomies) w/ subsequent rhabdomyolysis, renal failure, and hyperkalemia - UE/LE GRAFTS 2) Is the patient bed confined as defined below? Yes To be bed confined the patient must satisfy all three of the following conditions: - unable to get up from bed without assistance AND unable to ambulate AND unable to sit in a chair or wheelchair. 3) Can this patient safely be transported by car or wheelchair van (i.e. seated during transport, without er medical technician or monitoring?): No 4) In addition to complete questions 1-3 above, please select any of the following conditions that apply: *Note: supporting documentation for any boxes checked must be maintained in the patient's medical records DVT requires elevation of a lower extremity Unable to tolerate seated position for time needed to transport Section III - Signature of Physician or Healthcare Professional I certify that the above information is true and correct based on my evaluation of this patient, andrepresent that the patient requires transport by ambulance and that other forms of transport are contraindicated. I understand that this information will be used by the Centers of Medicare and MedicaidServices ([facility]) to support the determination of medical necessity for ambulance services, and I represent that I have personal knowledge of the patient's condition at the time of transport. Lizzy Love RN 03/23/2022 Form was electronically signed and dated by the patient's Physician or Healthcare Professional *Form must be signed only by patient's attending physician for scheduled, repetitive transports. Fornon-repetitive, unscheduled ambulance transports, when unable to obtain the signature of the attending physician, this form was signed by Wall Man Plan of Care - Corina Zabala RN - 03/18/2022 4:27 PM EDT OUTCOME EVALUATION NOTE: ?? OUTCOME SUMMARY: ?? Pt had a good day. VSS on RA. A&Ox4. HR tachy to the 110s to 120 at baseline. HAND STRIPER discontinued. Prn oxy given with good effect. Team at bedside to fix dressing to left thigh later this am. Voiding adequate amounts via urinal. Moderate BM via bedpan. Father at bedside. Pt interested in beginning suboxone. Will continue to monitor. ?? PLAN MOVING FORWARD: ?? M/W/F dressing changes Increase mobility Encourage OOB Discharge planning Pain control ?? INDIVIDUALIZED FALL PREVENTION INTERVENTIONS: ?? Patient-specific fall risk factors per assessment: [current deficits]: Tethering lines and devices, deconditioned, unfamiliar environment, narcotics ?? Assistance [level of assistance required for transfers and ambulation]: 2 assist w/ fww ?? Supervision [direct monitoring required during toileting and ADLs]: Hands on ?? Surveillance [continuous indirect monitoring]: Call light in reach, room near nurses station, purposeful rounding ?? Patient-specific fall prevention interventions for sensory deficits provided, if applicable: [X] Yes ? CARE PLAN GOAL OUTCOME EVALUATION: Consult Note - Ten Hernandez MD - 03/18/2022 3:57 PM EDT BIT Evaluation Referral source: BIT RC Reason for referral: OUD - suboxone induction Relevant history: Informed by BIT RC that pt interested in exploring suboxone. I called pt and discussed suboxone, provided education about the medication, r/b/a as well as options for initiating. Pt expressed preference for microinduction as he is currently on oxycodone PRN for pain and would prefer to minimize worsening pain and ppt withdrawal. Assessment: 31 y.o. man presenting 01/23 after accidental fentanyl OD. Complex medical/surgical course. Today pt made excellent decision to start suboxone. Given hx and presentation, suboxone is good choice for MOUD as it may help prevent future OD (due to partial agonism/high receptor affinity) as well as directly address cravings. Induction recs, below: Interventions delivered: Medication assisted treatment counseling Pharmacologic treatment Other: - Plan: - RC will continue to follow - initiate bupe low-dose induction/cross-taper, today, using orderset as outlined, below: Initiating Buprenorphine In Patients On Opioids For Pain [3906] Background: When patients are on opioids for pain and have Opioid Use Disorder (OUD), transition tobuprenorphine prior to discharge. It is risky to send the patient home with full agonist opioids. Some patients without OUD who are doing poorly on opioids can also benefit from transitioning to buprenorphine. ?? Buprenorphine should not be used if transaminases are greater than three times the upper limit ofnormal or the patient is intoxicated or sedated. ?? Patients on short-term opioids or less than 100 MME/day chronically can be transitioned with a ???rapid conversion?? . This can also be tried if there is not enough time for a microinduction. ?? Patients on greater than 100 MME/day or methadone can be transitioned with ???microinduction?? . ? Microinduction: ?? The goal of microdinduction is to initiate buprenorphine/naloxone (Suboxone) in patients who are felt to need opioids for pain in a way that avoids withdrawal symptoms. ?? Buprenorphine/naloxone (Suboxone) is introduced in small and increasing amounts while the full agonist opioid is initially??maintained. ?? Belbuca 300 mcg is bioequivalent to 0.5 mg of sublingual buprenorphine. ? Continue full agonist opioids on days 1??to 3, give half dose on day 4, then discontinue. ?? Ask about withdrawal after each dose. If patient has symptoms of withdrawal, administer COWS. ? If COWS??less than 6, continue twice daily dosing; ? if COWS 6??to 12??decrease frequency from twice daily to daily dosing; ? if COWS greater than 12 hold buprenorphine ?? Day 5: ??Defaults to buprenorphine/naloxone (Suboxone) 4 mg PO four times daily. May decrease to 4 mg PO three times daily based on pain, craving and/or sedation. Outstanding Discharge Needs: At time of discharge patient may require a buprenorphine script to bridge to outpatient MAT appointment, please page BIT at 2017 if you need assistance with this. Time spent with the patient (min):15 minutes Time spent on case coordination (min): 15 minutes Consult Note - Dilia Lemons - 03/18/2022 7:30 AM EDT [facility] Evaluation Referral source: Follow up Reason for referral: Recovery support Relevant history: arrived to find Valeriy laying in bed with the lights off. He told that he was interested in starting Suboxone but didn't want to trade one thing for another. stated that they way she interruptsSuboxone is a medication to treat a disease, you might not need it for the rest of your life but it can help you stay stable in your recovery until you don't need it anymore. He agreed to speak with ALIZA AVENDAÑO about the process of starting treatment. Assessment: Valeriy was welcoming and friendly. He is interested in starting Suboxone. [facility] has already given him information for [facility] in [facility] and will assist him in setting up out patient provider once he starts the treatment. Interventions delivered: Other: Peer Support Plan: will continue to follow patient for the remainder for admission. Outstanding Discharge Needs: At time of discharge patient may require a buprenorphine script to bridge to outpatient MAT appointment, please page Psychiatry at [phone] if you need assistance with this. Time spent with the patient (min):15 minutes Time spent on case coordination (min): 15 minutes Plan of Care - Corina Zabala RN - 03/17/2022 4:31 PM EDT OUTCOME EVALUATION NOTE: OUTCOME SUMMARY: Pt had a good day. VSS on RA. A&Ox4. HR tachy to the 110s to 120 at baseline. HAND STRIPER decreased to 0.1mg. Prn oxy given with good effect. PT/OT worked with pt today. Dressing CDI to bilateral thighs and left arm. Father planning to be in tomorrow. Will continue to monitor. PLAN MOVING FORWARD: M/W/F dressing changes Increase mobility Encourage OOB Discharge planning Pain control INDIVIDUALIZED FALL PREVENTION INTERVENTIONS: Patient-specific fall risk factors per assessment: [current deficits]: Tethering lines and devices, deconditioned, unfamiliar environment, narcotics Assistance [level of assistance required for transfers and ambulation]: 2 assist w/ fww Supervision [direct monitoring required during toileting and ADLs]: Hands on Surveillance [continuous indirect monitoring]: Call light in reach, room near nurses station, purposeful rounding Patient-specific fall prevention interventions for sensory deficits provided, if applicable: [X] Yes CARE PLAN GOAL OUTCOME EVALUATION: Care Management - Jamilah Fonseca RN - 03/17/2022 11:27 AM EDT OFFICE OF CARE MANAGEMENT PROGRESS NOTE LOS: Hospital Day 53 days Chart reviewed, care reviewed with primary team and at interdisciplinary rounds. Patient continues to meet inpatient level of care related to: 03/16/2022 - Batsheva Hill MD 31 y.o. male with HTN, angioedema requiring intubation 04/21, GERD, gastritis, esophagitis, urachal cyst, and polysubstance use (EtOH, cocaine, heroin) who was admitted 01/23/2022 for compartment syndrome and rhabdomyalysis after being found down. He is now s/p multiple fasciotomies and debridements of LLE and L forearm. ?? Mr. Holland has had a prolonged, complicated hospital course which has been significant for renal replacement therapy secondary to rhabdomyolysis, ICU admissions, multiple debridements, and persistent transfusion requirement. He was transferred to the floor 02/10 and appears to be slowly progressing towards recovery. ?? His wound cultures grew Pseudomonas and Serratia for which he has been covered with by Zosyn. ID consulted 02/11 and Zosyn discontinued and transitioned to cefepime. He also has C. difficile for which he is being treated with p.o. vancomycin which will continue for 10 days (until 03/01/22) following disco ntinuation of cefepime. His leukocytosis has improved. ID was again consulted on 02/22 for cefepime-resistant pseudomonas. Despite the resistence, Mr. Holland has been afebrile and without a leukocytosis so the decision was made to stop cefepime and flagyl. ?? His last dialysis was 02/18/22, central access remains in place due to lack of peripheral access options. His Cr continues to improve, and his urine output remains high. Given his improved renal function, Nephrology recommended stopping weekly EPO, resuming a normal diet, starting vitamin D supplementation and a normal multivitamin. ?? Cultures from 03/05 demonstrated GPCs and GNRs, pseudomonas and speciated MRSA. ?? The patient went to the OR on 03/13 and it was observed that there was 100% take of the LUE and LLE skin graft. There is still the concern for pseudomonal infection which could adversely affect the skingraft. ID was re-engaged and left extensive recommendations that have been followed. The patient returned to the OR on 03/15 for dressing change, now off IV vancomycin and meropenem (ended 03/15). At that time his activity changed from bedrest to activity as tolerated. PT and OT to see him either today or tomorrow for recommendations. Their notes will be sent by the Brick Catcher to the rehab facilities. Will likely have dressing change tomorrow. Currently weaning his dilaudid HAND STRIPER. ?? Per IDR: 03/17/2022: Acute Rehab on early next week - IVABx needs - PICC; OPAT Functional status prior to admission: Independent Home Environment: Others in the home: parent(s) (lives with dad). Current Living Arrangements: home/apartment/condo. Accessibility Concerns: Per PT 03/16/2022: Home setup: Pt lives with his father in a two level home with a couple [address]NA[place]TE. Pt's bedroom and bathroom are on the first floor. 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 Enjoys hunting and fishing. DME: none. 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: 2 assist with FWW and gait belt per nursing DME used at home: none DME Needed at Discharge: none anticipated if going to rehab Patient is insured through: Primary Insurance: [place] Pay[place] / Plan[place] / Product Type: *No Product type* / Secondary Insurance: N/A Last Physical Therapy Recommendation: acute rehabilitation facility with to be determined Last Occupational Therapy Recommendation: acute rehabilitation facility with to be determined Plan for discharge is: Acute Rehab Agency Referrals: [facility] Inpatient Rehabilitation Unit - [address] [address] [facility] Acute Rehabilitation and Sub-Acute (Swing) Rehab Levels of Care [address] [place] [id number] Transportation: ambulance Discussed with patient on 03/16/2022. Barriers to discharge: Discharge planning Psych: Adjustment to diagnosis/illness, Coping/stress Plan going forward: ACS Care Management will continue to follow and assist with discharge planning and coordination of care as indicated. Anticipated Date of Discharge: 03/22/2022 Alexa Fonseca RN (Jonas) RN/CM - Cellphone: [phone] Pager: [phone] Covering Service RN/CM Care Management - Jamilah Fonseca RN - 03/17/2022 9:05 AM EDT RN/CM has called: Alix Holland (father) c: [phone] Dad's House: Mobile home; [address]. No steps inside of home. Dad visits almost daily to see his son. Dad will help him establish a PCP with the local [facility]. Per Dad, when pt gets home, his dad will be home as he is retired so he is available 21/02. His Mom is in [place] and she can come up and help out as well. They are . He has a sister who is available to help as needed. IVAbx x 1 week via PICC; Then plan for PO Abx after one week. Dad will be working with pt and hoping to assistance with him for a substance abuse program later inthe near future. Pt's has a brother in [place] - willing to have him come down there once he is physically able to do so. Work: [employer], Hiking through the [place]. Pt's dad is hopeful that he'll be able to get backto his work. Alexa (Kenny) ÁNGEL Fonseca RN/CM - Cellphone: [phone] Pager: [phone] Covering Service RN/CM Plan of Care - Jayme Keenan RN - 03/16/2022 6:56 PM EDT OUTCOME EVALUATION NOTE: OUTCOME SUMMARY: Alix had a good shift today. Elevated BPs and tachycardic, other VSS on RA. Reporting 8 to 10/10 pain, using dilaudid HAND STRIPER and PRN oxy given x2. Up to chair twice. PT/OT eval today. L calf PEG with scabs. R thigh and L arm CDI. Reinforced L thigh dressing with abd pad and kerlix. Sacrum red and excoriated. Refusing sacral mepilex. One soft BM via bedpan. Following PT eval today, pt encouraged to use bedside commode. Adequate UOP via urinal. PLAN MOVING FORWARD: M/W/F dressing changes Encourage mobilization and independence Monitor and control pain, weaning HAND STRIPER, syringe expires 03/18 at 1755 Hoping to discharge to rehab toward end of week INDIVIDUALIZED FALL PREVENTION INTERVENTIONS: Patient-specific fall risk factors per assessment: [current deficits]: Unfamiliar environment, recent surgeries, generalized weakness, lines and drains, pain, narcotics Assistance [level of assistance required for transfers and ambulation]: 2 assist with FWW and gait belt Supervision [direct monitoring required during toileting and ADLs]: Hands on Surveillance [continuous indirect monitoring]: roz Almanzar, personal items and call starks alonsoreach, room near unit station Care Management - Jamilah Fonseca RN - 03/16/2022 3:58 PM EDT Based on discussions with the multi-disciplinary healthcare team, the patient would benefit from Acute Rehab level of care at discharge. I have met with the patient to: ?? discuss discharge planning needs. ?? provide the [facility] [place] Office of Care Management letter from the Architectural Intern pertaining to rehab referrals. ?? provide a letter describing our affiliations within the [facility] and educate about their right to choose where referrals are sent. ?? provide the [facility] Star Quality Rating handout. ?? review the different levels of rehab including SNF, swing, and acute. ?? provide a list of facilities within their preferred geographic area. ?? request that they provide at least three choices for referral. They have requested referrals to: [facility] Inpatient Rehabilitation Unit - [address] [address] [facility] Acute Rehabilitation and Sub-Acute (Swing) Rehab Levels of Care [address] [place] [address] Covid Vaccination Status: UNVACCINATED Does patient have COVID vaccine card: N/A Anticipated discharge date: 03/19/2022 Note routed to a [facility] [employer] [facility] Tier who will communicate referrals to facilities and provide any required information. Transportation: Ambulance transportation is medically necessary at discharge related to: Unable to tolerate seated position for time needed to transport. I have discussed Medicare/Private Insurance reimbursement guidelines for ambulance transport. Patient verbalized understanding of their potential financial obligation and agree with ambulance transport. DC planning post-rehab: Pt states he will go back to his dad's house in [place]. RN/CM attempted to call: Alix Holland (Father) - Alix Holland (father) c: [phone]. RN/CM attempted calls to other family members: Marylou Holland (Sibling) - [phone] (H): phone call was not able to get through Josefina Holland (Grandparent) - [phone] (H): line busy Per patient, he was employed x 5 years. He is unsure if he'll have employment after all of this is completed and he is strong, healthy enough to work. Alexa (Kenny) ÁNGEL Fonseca RN/CM - Cellphone: [phone] Pager: [phone] Covering Service RN/CM Consult Note - Dilia Lemons - 03/16/2022 11:00 AM EDT [facility] Evaluation Referral source: Follow up Reason for referral: Recovery support Relevant history: Valeriy was sitting up in his chair by the window when RC arrived. He was in good spirits today, though is anxious to get out of the hospital. He is feeling a little discouraged with his mobility at this time, but is ready to put in the work to get up and walking again. He spent some time explaining the meaning behind his tattoos. He was feeling tired so RC excused herself. Assessment: Patient is welcoming and friendly. He tells RC that he is not having cravings and does not think about using. He has taken some resources but has not set up a formal recovery plan. Interventions delivered: Other: Peer Support Plan: RC will continue to follow patient for duration of admission. Outstanding Discharge Needs: Other: none at this time Time spent with the patient (min):30 minutes Time spent on case coordination (min): 15 minutes Plan of Care - Jayme Keenan RN - 03/15/2022 6:41 PM EDT OUTCOME EVALUATION NOTE: OUTCOME SUMMARY: Alix had a good shift today. Elevated diastolic BPs and tachycardic, other VSS on RA. Reporting 8 to10/10 pain, using dilaudid HAND STRIPER and PRN oxy given x2. Dressing change in OR today. Switched to low phosphorus diet upon return. Dressings CDI. Sacrum red and excoriated. Refusing sacral mepilex. Reminded to reposition frequently. As of this evening, bedrest order discontinued and pt able to get out of bed as tolerated. One large soft BM via bedpan. AUOP via urinal. PLAN MOVING FORWARD: Activity as tolerated Encourage mobilization, repositioning, and self care Monitor and control pain, HAND STRIPER expires 03/16 1800 INDIVIDUALIZED FALL PREVENTION INTERVENTIONS: Patient-specific fall risk factors per assessment: [current deficits]: Unfamiliar environment, recent surgeries, generalized weakness, lines, pain, narcotics Assistance [level of assistance required for transfers and ambulation]: Bedrest Supervision [direct monitoring required during toileting and ADLs]: Hands on Surveillance [continuous indirect monitoring]: Masimo, rounding, personal items and call starks withinreach, room near unit station Care Management - Jamilah Fonseca RN - 03/15/2022 12:00 PM EDT OFFICE OF CARE MANAGEMENT PROGRESS NOTE LOS: Hospital Day 51 days Chart reviewed, care reviewed with primary team and at interdisciplinary rounds. Patient continues to meet inpatient level of care related to: 03/15/2022 - Elaine Dos Santos MD Proceed with scheduled procedure: left lower extremity and left upper extremity wound exploration, wound vac change, procedures as indicated - Has been appropriately consented and is ready to proceed. - meropenem, vancomycin - SQH Per IDR: 03/15/2022: DC later this week. Acute rehab; Pending PT/OT; OR today. Will need new Acute rehab referrals. Functional status prior to admission: Independent Home Environment: Others in the home: parent(s) (lives with dad). Current Living Arrangements: home/apartment/condo. Accessibility Concerns: 4 steps to enter the trailer. 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: Completely Dependent as he is on Bedrest, 2 assist to reposition DME used at home: none DME Needed at Discharge: none anticipated if going to rehab Patient is insured through: Primary Insurance: [place] / [place] / Product Type: *No Product type* / Secondary Insurance: N/A Last Physical Therapy Recommendation: acute rehabilitation facility with to be determined Last Occupational Therapy Recommendation: acute rehabilitation facility with to be determined Plan for discharge is: Acute Rehab Agency Referrals: Will need to review for Acute rehabs and place new referrals. Transportation: ambulance Will need BLS transportation closer to discharge. Barriers to discharge: Discharge planning Psych: Adjustment to diagnosis/illness, Coping/stress Plan going forward: ACS Care Management will continue to follow and assist with discharge planning and coordination of care as indicated. Anticipated Date of Discharge: 03/19/2022 Alexa Fonseca RN (Jonas) RN/CM - Cellphone: [phone] Pager: [phone] Covering Service RN/CM Op Note - Allison Kelly MD - 03/15/2022 9:02 AM EDT [facility] [place] Note Patient Name: Alix Holland : [id number] MR#: [id number] Case Date: 03/15/2022 Surgeon: Surgeon(s) and Role: * Allison Kelly MD - Primary * Veto Hidalgo MD - Resident Preoperative diagnosis: STSG with pseudomonas, unable to tolerate dressing change Postoperative diagnosis: same Procedure(s) (LRB): DRESSING CHANGE (FOR OTHER THAN GALLOWAY) UNDER ANES., UPPER EXTREMITY (WRVU 0.86) (Left) DRESSING CHANGE (FOR OTHER THAN GALLOWAY) UNDER ANES., LOWER EXTREMITY (WRVU 0.86) (Left) Findings: 1. Left upper and left lower extremity dressings changed, Skin grafts both healthy and with 100% take, dressed with silver gel, adaptic, fluffs and kerlix wrap 2. Right lower extremity dressing changed, donor site clean with blue staining on dressing Anesthesia: General Estimated Blood Loss: 1 mL Specimens removed during surgery: None Drains: none Surgical Closure: Primary Closure - skin incision is closed but with open spaces for wires, brennan, drains or other devices Disposition: awakened from anesthesia, extubated and taken to the recovery room in a stable condition, having suffered no apparent untoward event. Condition: doing well without problems (Please see the Surgical Encounter Summary for any Implant and Specimen details pertinent to this patient.) HPI/Surgical Indications: Alix Holland is a 31 y.o. male with prolonged hospital course with L forearm and L thigh compartment syndrome (s/p L forearm, L buttock, and L thigh fasciotomies) s/p ,multiple debridements and wound vac changes who ultimately [place] [facility] on 03/10/22. He then returned to the OR early for vac removal given green staining of dressings and concern for pseudomonal contamination. Plan for dressing change under anesthesia today. ?? Procedure Description: Mr Holland was brought to the operating room and placed in the supine position on his bed. Anesthesia was initiated and the patient underwent LMA placement. The patient received his scheduled antibiotics for antibiotic prophylaxis. A surgical timeout was performed and all of the attendants in the operating room were in agreement to proceed. His prior dressings over his left upper extremity and left lower extremity were removed. Both skin graft sites were healthy in appearance with 100% take of the skin graft areas. All remaining angeles were removed and the skin graft was adherent to the granulation surface. Silver gel was placed over both sites and then adaptic with fluffs on top and wrapped with kerlix. The donor site dressings were also stained with green/blue staining but the site looked healthy underneath. This was redressed with allevyn dressings. The patient tolerated the procedure well and was transferred to the recovery room in stable condition. The count at the end of the case was correct. Dr. Kelly was present for the entire procedure. Surgical Infection Prevention Bundle Used? N/A Attestation: Case Date: 03/15/2022 I was present and I participated during the entire procedure (does not need to include opening and closing). Allison Kelly MD 03/15/2022 Brief Op Note - Veto Hidalgo MD - 03/15/2022 8:57 AM EDT Brief Operative Note Patient Name: Alix Holland : [id number] MR#: [id number] Case Date: 03/15/2022 Surgeon: Surgeon(s) and Role: * Allison Kelly MD - Primary * Veto Hidalgo MD - Resident Preoperative diagnosis: STSG with pseudomonas, unable to tolerate dressing change Postoperative diagnosis: STSG dressing change Procedure(s) (LRB): DRESSING CHANGE (FOR OTHER THAN GALLOWAY) UNDER ANES., UPPER EXTREMITY (WRVU 0.86) (Left) DRESSING CHANGE (FOR OTHER THAN GALLOWAY) UNDER ANES., LOWER EXTREMITY (WRVU 0.86) (Left) Anesthesia: General Findings: 1. Left upper and left lower extremity dressings changed, Skin grafts both healthy and with 100% take, dressed with silver gel, adaptic, fluffs and kerlix wrap 2. Right lower extremity dressing changed, donor site clean with blue staining on dressing Complications: none Estimated Blood Loss: 1 mL* No values recorded between 03/15/2022 8:22 AM and 03/15/2022 8:48 AM * Specimens removed during surgery: None Fluids: Intraprocedure Crystalloid Total None PRBCs: none (See Anesthesia Record/Report for Other Blood Products) Urine Output: (no urine output recorded) Drains: none Disposition: awakened from anesthesia, extubated and taken to the recovery room in a stable condition, having suffered no apparent untoward event. Condition: doing well without problems (Please see the Surgical Encounter Summary for any Implant and Specimen details pertinent to this patient.) Surgical Infection Prevention Bundle Used? N/A Consult Note - Thomas Julian [facility] - 03/14/2022 4:59 PM EDT Clinical Pharmacist Note-Vanc Alix Holland [id number] 1990 Alix Holland is a 31 y.o. male is being monitored due to antibiotic therapy which includes intravenous vancomycin. Regimen: Vancomycin 1000 mg every 8 hours Indication: empiric coverage of infection Initiation Date: 03/13/22 Day of Therapy:1 Targeted Goal Range: 15 - 20 mcg/mL Pharmacokinetic information: Wt Readings from Last 1 Encounters: 03/13/22 78.9 kg (173 lb 15.1 oz) Ht Readings from Last 1 Encounters: 03/03/22 188 cm (6' 2) Labs: Vancomycin: Vanc Trough (mg/L) Date Value 03/14/2022 16.1 Creatinine clearance: Creatinine (mg/dL) Date Value 03/13/2022 0.65 (L) Estimated Half-Life (T1/2) = 7.8 hours: Estimated Volume of distribution (Vd) = 55.2 Liters Recommendations: Dosing recommendations: ??? No change in vancomycin dose or dosing interval at this time. Monitoring recommendations: ??? Recheck vancomycin trough level (30 minutes prior to a scheduled dose) if significant changes inSCr, BUN or fluid status occur; otherwise recheck serum trough levels (30 minutes prior to a scheduled dose) in 5-7 days. We will continue to monitor the patient as long as he remains on vancomycin therapy. Please watch SCr, BUN and fluid status closely. Please page the care area pharmacist with any questions you may have. Alternately, during off-hours you may call [phone] to contact a pharmacist. THOMAS JUL[facility] Pager [phone] Plan of Care - Adrienne Tejada RN - 03/13/2022 7:37 PM EDT OUTCOME EVALUATION NOTE: OUTCOME SUMMARY: Pt hypertensive and tachycardic. MD aware. A&Ox4. Pt went to OR. Wound vacs d/cd. LLE and LUE redressed with adaptic coated with silver wound gel, covered with telfa, gauze, kerlix, coban. LLE and LUE dressing change only by MD. Voiding via urinal, adequate amount. No BM this shift. Will continue to monitor. ?? PLAN MOVING FORWARD: Pain control Monitor VS, I/Os Neurovascular checks INDIVIDUALIZED FALL PREVENTION INTERVENTIONS: ?? Patient-specific fall risk factors per assessment: [current deficits]: ??Pain, narcotics,??generalized weakness, lines/tubings/drains ?? Assistance [level of assistance required for transfers and ambulation]: 1-2 ??Assist repositioning; bedrest ?? Supervision [direct monitoring required during toileting and ADLs]: Hands on ?? Surveillance [continuous indirect monitoring]: Masimo, call starks within reach, purposeful rounding ?? Patient-specific fall prevention interventions for sensory deficits provided, if applicable: [X] Yes, ??lighting adjusted for tasks/safety, environmental modification, non-skid socks ? CARE PLAN GOAL OUTCOME EVALUATION: ongoing Brief Op Note - Jareth Alonzo MD - 03/13/2022 9:40 AM EDT Brief Operative Note Patient Name: Alix Holland : [id number] MR#: [id number] Case Date: 03/13/2022 Surgeon: Surgeon(s) and Role: * Willie Sanabria MD - Primary * Jareth Alonzo MD - Resident * Parrish Betancourt MD - Assisting Attending Preoperative diagnosis: split thickness skin graft dressing change, concern for pseudomonas Postoperative diagnosis: split thickness skin graft dressing change, concern for pseudomonas Procedure(s) (LRB): DRESSING CHANGE (FOR OTHER THAN GALLOWAY) UNDER ANES., UPPER EXTREMITY (WRVU 0.86) (Left) DRESSING CHANGE (FOR OTHER THAN GALLOWAY) UNDER ANES., LOWER EXTREMITY (WRVU 0.86) (Left) Anesthesia: General Findings: - LLE and LUE vacs with green discoloration concerning for pseudomonas - Underlying STSGs healthy appearing with no evidence of infection, 100% take to underlying tissue at this time - Redressed with adaptic coated with silver wound gel, covered with telfa, gauze, kerlix, coban Complications: None Estimated Blood Loss: 0 mL* No values recorded between 03/13/2022 8:24 AM and 03/13/2022 9:24 AM * Specimens removed during surgery: None Fluids: Intraprocedure Crystalloid Total Intake Sodium Chloride 0.9% 200.00 mL Total Intake 200 mL Output Blood Loss 0 mL Total Output 0 mL Net Net Volume 200 mL PRBCs: none (See Anesthesia Record/Report for Other Blood Products) Urine Output: (no urine output recorded) Drains: None Disposition: awakened from anesthesia, extubated and taken to the recovery room in a stable condition, having suffered no apparent untoward event. Condition: doing well without problems (Please see the Surgical Encounter Summary for any Implant and Specimen details pertinent to this patient.) Surgical Infection Prevention Bundle Used? N/A Op Note - Jareth Alonzo MD - 03/13/2022 8:24 AM EDT Images from the original note were not included. [facility] [place] Patient Name: Alix Holland : [id number] MR#: [id number] Case Date: 03/13/2022 Surgeon: Surgeon(s) and Role: * Parrish Betancourt MD - Primary * Jareth Alonzo MD - Resident Preoperative diagnosis: split thickness skin graft dressing change, concern for pseudomonas Postoperative diagnosis: split thickness skin graft dressing change, concern for pseudomonas Procedure(s) (LRB): DRESSING CHANGE (FOR OTHER THAN GALLOWAY) UNDER ANES., UPPER EXTREMITY (WRVU 0.86) (Left) DRESSING CHANGE (FOR OTHER THAN GALLOWAY) UNDER ANES., LOWER EXTREMITY (WRVU 0.86) (Left) Findings: - LLE and LUE vacs with green discoloration concerning for pseudomonas - Underlying STSGs healthy appearing with no evidence of infection, 100% take to underlying tissue at this time - Redressed with adaptic coated with silver wound gel, covered with telfa, gauze, kerlix, coban Anesthesia: General Estimated Blood Loss: 0 mL Specimens removed during surgery: None Drains: None Surgical Closure: n/a Disposition: awakened from anesthesia, extubated and taken to the recovery room in a stable condition, having suffered no apparent untoward event. Condition: doing well without problems (Please see the Surgical Encounter Summary for any Implant and Specimen details pertinent to this patient.) HPI/Surgical Indications: Alix Holland is a 31 y.o. male who underwent STSGs to the LUE and LLE on03/10/22. Over the last 12 hours the wound vacs over his grafts have developed a bright green discoloration concerning for pseudomonas (has previously grown pseudomonas from his wounds). Plan for dressing change, possible debridement under anesthesia. Procedure Description: The patient was brought to the operating room and placed in the supine position on the operating table. Anesthesia was induced by the anesthesia team and the airway was secured. Time out was performed per protocol and all were in agreement to proceed. The left arm was extended on an arm board and addressed first as it had the most discoloration. The wound vac and associated sponge and adaptic were carefully removed, taking care not to disturb the graft underneath. The vac sponge itself was bright green and malodorous. The wound itself is very healthy with normal appearing skin graft, good approximation, good granulation underneath. No drainage or evidence of infection. There was no evidence of acute infection in the wound itself and there was no fluid to culture. Fresh adaptic coated with Silver wound gel was placed over the graft, followed by gauze, kerlix, and coban wrap. The left thigh vac was taken down next, also discolored with blue/green hues though less prominent. The underlying graft was healthy appearing, similar to the arm. The black sponge in the cephalad tunneled wound was removed and had good granulation tissue. The wound was similarly dressed with adaptic,silver hydro gel, gauze, kerlix, and coban. 4x4 moist gauze x1 was packed in the tunneled component. He tolerated the procedure well and without complication. He was weaned from anesthesia, extubated and taken back to PACU in stable condition having suffered no adverse events throughout the entirety of the procedure. All counts were correct and Dr. Betancourt was scrubbed throughout the procedure. Surgical Infection Prevention Bundle Used? N/A Associated attestation - Parrish Betancourt MD - 03/14/2022 2:45 PM EDT Attestation: Case Date: 03/13/2022 I was present and I participated during the entire procedure (does not need to include opening and closing). PARRISH BETANCOURT MD 03/14/2022 Plan of Care - Jayme Keenan RN - 03/13/2022 6:59 AM EDT OUTCOME EVALUATION NOTE: OUTCOME SUMMARY: Alix slept for most of the night. Hypertensive and tachy. A+Ox4. Reporting 8 to 10/10 pain, using dilaudid HAND STRIPER and PRN oxy given x2. No BM this shift but pt now willing to take bowel meds, LBM 03/10. Adequate UOP via urinal. NPO status maintained after midnight. PLAN MOVING FORWARD: Strict bedrest NPO for OR today Encourage self care Monitor and control pain, start weaning HAND STRIPER INDIVIDUALIZED FALL PREVENTION INTERVENTIONS: Patient-specific fall risk factors per assessment: [current deficits]: Unfamiliar environment, recent surgeries, generalized weakness, lines and drains, pain, narcotics Assistance [level of assistance required for transfers and ambulation]: Bedrest, 2 assist to reposition Supervision [direct monitoring required during toileting and ADLs]: Hands on Surveillance [continuous indirect monbitoring]: Masimo, rounding, personal items and [facility], room near unit station, bed alarm set Plan of Care - Adrienne Tejada RN - 03/12/2022 7:11 PM EDT OUTCOME EVALUATION NOTE: OUTCOME SUMMARY: Pt A&Ox4. Pt hypertensive and tachycardic. MD aware. A&Ox4. Pt denies SOB, N/V.Pain controlled witn HAND STRIPER dilaudid and PRN pain meds. Neurovascular checks intact. Diet changed to NPO for possibleprocedure. Pt remains bedrest. Wound vac to left arm , -100 LCWS, intact. Wound vac to left thigh, -125 LCWS, intact. Voiding via urinal, adequate amount. No BM this shift. Will continue to monitor PLAN MOVING FORWARD: Pain control Neurovascular Q4 checks NPO for OR INDIVIDUALIZED FALL PREVENTION INTERVENTIONS: Patient-specific fall risk factors per assessment: [current deficits]: Pain, narcotics, generalized weakness, lines/tubings/drains Assistance [level of assistance required for transfers and ambulation]: 1-2 Assist repositioning; bedrest Supervision [direct monitoring required during toileting and ADLs]: Hands on Surveillance [continuous indirect monitoring]: Masimo, call starks within reach, purposeful rounding Patient-specific fall prevention interventions for sensory deficits provided, if applicable: [X] Yes, lighting adjusted for tasks/safety, environmental modification, non-skid socks CARE PLAN GOAL OUTCOME EVALUATION: ongoing Plan of Care - Jayme Keenan RN - 03/12/2022 5:51 AM EDT OUTCOME EVALUATION NOTE: OUTCOME SUMMARY: Alix slept for most of the night. Hypertensive and tachy. A+Ox4. Reporting 8 to 05/10 pain, using dilaudid HAND STRIPER and PRN oxy given x2. No BM this shift, LBM 810. High UOP. MIVF discontinued. PLAN MOVING FORWARD: NPO tomorrow at midnight for OR Tuesday Encourage self care Monitor and control pain, start weaning HAND STRIPER INDIVIDUALIZED FALL PREVENTION INTERVENTIONS: Patient-specific fall risk factors per assessment: [current deficits]: Unfamiliar environment, recent surgeries, generalized weakness, lines and drains, pain, narcotics Assistance [level of assistance required for transfers and ambulation]: Bedrest, 2 assist to reposition Supervision [direct monitoring required during toileting and ADLs]: Hands on Surveillance [continuous indirect monitoring]: Masimo, rounding, personal items and call starks withinreach, room near unit station, bed alarm set Plan of Care - Adrienne Tejada RN - 03/11/2022 7:33 PM EDT OUTCOME EVALUATION NOTE: OUTCOME SUMMARY: Pt A&Ox4. Pt hypertensive and tachycardic. MD aware. Pain controlled witn HAND STRIPER dilaudid and PRN pain meds. Neurovascular checks intact. Pt remains bedrest. Wound vac to left arm , -100 LCWS. Wound vac to left thigh, -125 LCWS. Voiding via urinal, adequate amount. No BM this shift. Will continue to monitor PLAN MOVING FORWARD: Pain control Neurovascular Q4 checks NPO at midnight INDIVIDUALIZED FALL PREVENTION INTERVENTIONS: Patient-specific fall risk factors per assessment: [current deficits]: Pain, narcotics, generalized weakness, lines/tubings/drains Assistance [level of assistance required for transfers and ambulation]: 1-2 Assist repositioning; bedrest Supervision [direct monitoring required during toileting and ADLs]: hands on Surveillance [continuous indirect monitoring]: abdoul Almanzar within reach, purposeful rounding Patient-specific fall prevention interventions for sensory deficits provided, if applicable: [X] Yes, lighting adjusted for tasks/safety, environmental modification, non-skid socks CARE PLAN GOAL OUTCOME EVALUATION: ongoing Care Management - Jamilah Fonseca RN - 03/11/2022 11:03 AM EDT OFFICE OF CARE MANAGEMENT PROGRESS NOTE LOS: Hospital Day 47 days Chart reviewed, care reviewed with primary team and at interdisciplinary rounds. Patient continues to meet inpatient level of care related to: 03/10/2022 - Veto Hidalgo MD 31 y.o. male with LLE and and LUE wounds after fasciotomies performed by Orthopedics status post multiple debridements and wound VAC changes who underwent a split thickness skin graft of both his left upper extremity and left lower extremity wounds from a right-sided donor site now postop day 0. ?? PLAN: -Doing well postoperatively, maintain vacs to suction (left upper extremity 100 mmHg, left lower extremity 125 mmHg) -If concerns about VAC particularly not holding suction please page [phone] immediately given that thiswill affect skin graft take -High-protein high-calorie low Phos diet -Plan to return to the operating room on Tuesday for VAC removal, bedrest until then -HAND STRIPER for pain control will wean as able Per 03/11/2022 IDR: Strict Bedrest; OR yesterday for grafts; VAC x [address] - one on UE/one on LE. Take down on Tuesday. Functional status prior to admission: Independent Home Environment: Others in the home: parent(s) (lives with dad). Current Living Arrangements: home/apartment/condo. Accessibility Concerns: 4 steps to enter the trailer. 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: Completely Dependent DME used at home: none DME Needed at Discharge: none anticipated if going to rehab Patient is insured through: Primary Insurance: [place] Payor: [place] / Plan: [place] / Product Type: *No Product type* / Secondary Insurance: N/A Last Physical Therapy Recommendation: acute rehabilitation facility with to be determined Last Occupational Therapy Recommendation: acute rehabilitation facility with to be determined Plan for discharge is: Acute Rehab Agency Referrals: Pending new referrals closer to medical readiness Transportation: ambulance - pending discuss with pt closer to discharge - given new grafts in place Barriers to discharge: Discharge planning Psych: Adjustment to diagnosis/illness, Coping/stress RN/CM has asked IP RS to follow up with patient/family for ADs while inpatient. Pt's hospital stay > 30 days. Plan going forward: [facility] Care Management will continue to follow and assist with discharge planning and coordination of care as indicated. Anticipated Date of Discharge: 03/15/2022 Alexa Fonseca RN (Jonas) RN/CM - Cellphone: [phone] Pager: [phone] Covering Service RN/CM Op Note - Veto Hidalgo MD - 03/10/2022 4:40 PM EDT [facility] [place] Patient Name: Alix Holland : [id number] MR#: [id number] Case Date: 03/10/2022 Surgeon: Surgeon(s) and Role: * Parrish Betancourt MD - Primary * Veto Hidalgo MD - Resident Preoperative diagnosis: clean wound left forearm and left thigh Postoperative diagnosis: clean wound left forearm and left thigh Procedure(s) (LRB): APPL SKIN SUB GRAFT TO LEGS, TO 100 SQ CM; EA ADD'L 25 SQ CM AREA (WRVU 0.33) (Left) APPL SKIN SUB GRAFT TO ARMS, TO 100 SQ CM; EA ADD'L 25 SQ CM AREA (WRVU 0.33) (Left) Findings: 1. Left upper extremity wound vac removed with one white sponge 2. Left lower extremity wound vac removed with 3 black sponge 3. Split thickness skin graft of left upper extremity from donor site on right leg was 120 sq cm, wound dressed with adaptic, two white sponge and vac to -100mmhg 4. Split thickness skin graft of left lower extremity from donor site on right leg was 360 sq cm, wound dressed with adaptic, 4 white sponge and 1 black sponge to -125mmhg and two nimco pads 5. Donor site dressed with pink mepilex and tamie wrap Anesthesia: General Estimated Blood Loss: 10cc Specimens removed during surgery: None Drains: Wound vac x2, LUE to -100mmhg, LLE to -125mmhg Surgical Closure: Other Than Primary Closure - superficial layers are left completely open during original surgery, deep layers completely closed Disposition: awakened from anesthesia, extubated and taken to the recovery room in a stable condition, having suffered no apparent untoward event. 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 He went to the OR??multiple times??for debridement and vac application??of LLE??wound. After multiple trips to the operating room and wound VAC changes his wounds are ready forskin graft and he is returning to the operating room today for that procedure. Procedure Description: The patient was brought to the operating room and placed in the supine position. Anesthesia was initiated and the patient was intubated. The patient received Ancef for antibiotic prophylaxis. The patients left upper extremity wound VAC was removed with 1 black sponge and the tendon was noted to be completely covered with granulation tissue. The left lower extremity wound VAC (3 sponges) was also removed and this wound also looked healthy with good granulation tissue. His left arm and right leg were then prepped and draped in the typical sterile fashion in preparation to graft to the left arm first.A surgical timeout was performed and all of the attendants in the operating room were in agreement to proceed. The left upper extremity wound was 20 x 6 cm in size. The area size of the wound was 120 sq cm. There was healthy granulation tissue along the majority of the wound with a small area that was roughed up superiorly. We then marked to the donor area of the right thigh. The skin graft was taken from the right lateral thigh at 0.015 thickness. Two passes of the dermatome were necessary to obtain the required amount of split thickness skin graft. The skin was meshed at 1.5:1 ratio. The skin graft was applied to the wound and affixed at the edges with angeles. The pieces of skin graft were secured together with chromic. Adaptic gauze was placed over the skin graft and then covered with 2 white vac sponge and secured with angeles. The adhesive plastic drape was applied and the VAC was then set to -100 mmHg of suction with good seal achieved. We then took down the drapes while covering the right leg and reprepped and draped for the left lower extremity split-thickness skin graft. The left lower extremity wound was 30 x 12 cm in size. The area size of the wound was 360 sq cm. There was healthy granulation tissue along the majority of the wound with a tunneling deeper area more superiorly underneath the Prolene sutures. The skin graft was taken from the right lateral thigh at 0.015 thickness. 3 passes of the dermatome were necessary to obtain the required amount of split thickness skin graft. The skin was meshed at 1.5:1 ratio. The skin graft was applied to the wound and affixed at the edges with angeles. The pieces of skin graft were secured together with chromic. Adaptic gauze was placed over the skin graft and then covered with 4 white vac sponge and secured with angeles. For the deeper area 1 black sponge was tunneled then and bridged to the medial area of the thigh. The adhesive plastic drape was applied and the VAC was then setto -125 mmHg of suction with good seal achieved. Given the white and black sponge to Nimco pads wereplaced one on the bridge (black sponge) and 1 on the white portion. The donor site was then covered with lidocaine and epinephrine soaked gauze and ultimately dressed with pink Mepilex's and wrapped with an Tamie wrap. ?? The patient tolerated the procedure well and was transferred to the recovery room in stable condition. The count at the end of the case was correct. Dr. Betancourt was present for the entire procedure. Surgical Infection Prevention Bundle Used? N/A Associated attestation - Parrish Betancourt MD - 03/13/2022 7:11 AM EDT Attestation: Case Date: 03/10/2022 I was present and I participated during the entire procedure (does not need to include opening and closing). PARRISH BETANCOURT MD 03/13/2022 Brief Op Note - Veto Hidalgo MD - 03/10/2022 3:10 PM EDT Brief Operative Note Patient Name: Alix Holland : [id number] MR#: [id number] Case Date: 03/10/2022 Surgeon: Surgeon(s) and Role: * Parrish Betancourt MD - Primary * Veto Hidalgo MD - Resident Preoperative diagnosis: clean wound left forearm and left thigh Postoperative diagnosis: clean wound left forearm and left thigh Procedure(s) (LRB): APPL SKIN SUB GRAFT TO LEGS, TO 100 SQ CM; EA ADD'L 25 SQ CM AREA (WRVU 0.33) (Left) APPL SKIN SUB GRAFT TO ARMS, TO 100 SQ CM; EA ADD'L 25 SQ CM AREA (WRVU 0.33) (Left) Anesthesia: General Findings: 1. Left upper extremity wound vac removed with one white sponge 2. Left lower extremity wound vac removed with 3 black sponge 3. Skin graft of left upper extremity from donor site on right leg, wound dressed with adaptic, two white sponge and vac to -100mmhg 4. Skin graft of left lower extremity from donor site on right leg, wound dressed with adaptic, 4 white sponge and 1 black sponge to -125mmhg and two nimco pads 5. Donor site dressed with pink mepilex and tamie wrap Complications: none Estimated Blood Loss: 10cc Specimens removed during surgery: None Fluids: Intraprocedure Crystalloid Total None PRBCs: none (See Anesthesia Record/Report for Other Blood Products) Urine Output: (no urine output recorded) Drains: wound vac x2 Disposition: awakened from anesthesia, extubated and taken to the recovery room in a stable condition, having suffered no apparent untoward event. Condition: doing well without problems (Please see the Surgical Encounter Summary for any Implant and Specimen details pertinent to this patient.) Surgical Infection Prevention Bundle Used? N/A Consult Note - Dilia Lemons - 03/09/2022 11:15 AM EDT BIT Evaluation Referral source: Follow up Reason for referral: Recovery support Relevant history: RC arrived to find Valeriy getting back into bed. RC and Valeriy had a brief check in conversation, but Valeriy had a visitor so RC excused herself so they could have time. Assessment: Valeriy was friendly and welcoming. He is excited to get a skin graph tomorrow, and is happy to be one step closer to going home. Interventions delivered: Other: Peer Support Plan: RC will follow up with Valeriy later this week Outstanding Discharge Needs: Other: none at this time Time spent with the patient (min):15 minutes Time spent on case coordination (min): 15 minutes Care Management - Jamilah Fonseca RN - 03/08/2022 11:43 AM EDT OFFICE OF CARE MANAGEMENT PROGRESS NOTE LOS: Hospital Day 44 days Chart reviewed, care reviewed with primary team and at interdisciplinary rounds. Patient continues to meet inpatient level of care related to: 03/07/2022 - Jayme Armstrong MD 31 y.o. male with HTN, angioedema requiring intubation 04/21, GERD, gastritis, esophagitis, urachal cyst, and polysubstance use (EtOH, cocaine, heroin) who was admitted 01/23/2022 for compartment syndrome and rhabdomyalysis after being found down. He is now s/p multiple fasciotomies and debridements of LLE and L forearm. ?? Mr. Holland has had a prolonged, complicated hospital course which has been significant for renal replacement therapy secondary to rhabdomyolysis, ICU admissions, multiple debridements, and persistent transfusion requirement. He was transferred to the floor 02/10 and appears to be slowly progressing towards recovery. ?? His wound cultures grew Pseudomonas and Serratia for which he has been covered with by Zosyn. ID consulted 02/11 and Zosyn discontinued and transitioned to cefepime. He also has C. difficile for which he is being treated with p.o. vancomycin which will continue for 10 days (until 03/01/22) following disco ntinuation of cefepime. His leukocytosis has improved. ID was again consulted on 02/22 for cefepime-resistant pseudomonas. Despite the resistence, Mr. Holland has been afebrile and without a leukocytosis so the decision was made to stop cefepime and flagyl. ?? His last dialysis was 02/18/22, central access remains in place due to lack of peripheral access options. His Cr continues to improve, and his urine output remains high. Given his improved renal function, Nephrology recommended stopping weekly EPO, resuming a normal diet, starting vitamin D supplementation and a normal multivitamin. ?? Patient continues to do well and has tolerated bedside wound vac changes without difficulty. Wound culture with GPC and GNR, likely contaminants as not sterile dressing change. Will continue to monitorculture growth for drug resistant organisms. Wound vac continues to clog requiring mo pad changes.Remains on diet with plan for grafting on Tuesday. ?? 03/08: IDR: 03/08: Graft on Tuesday; ? VAC in place. Functional status prior to admission: Independent Home Environment: Others in the home: parent(s) (lives with dad). Current Living Arrangements: home/apartment/condo. Accessibility Concerns: 4 steps to enter the trailer. 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: Completely Dependent DME used at home: none DME Needed at Discharge: none anticipated if going to rehab Patient is insured through: Primary Insurance: [place] Payor: [place] / Plan: [place] / Product Type: *No Product type* / Secondary Insurance: N/A Last Physical Therapy Recommendation: acute rehabilitation facility with to be determined Last Occupational Therapy Recommendation: acute rehabilitation facility with to be determined Plan for discharge is: Acute Rehab Outpatient Agency/Support Group Needs: None Agency Referrals: Pending Acute rehab referrals closer to discharge. Pt now has [place] Medicaid insurance Transportation: Will f/u closer to discharge Barriers to discharge: Discharge planning Plan going forward: [facility] Care Management will continue to follow and assist with discharge planning and coordination of care as indicated. Anticipated Date of Discharge: 03/12/2022 Alexa Fonseca RN (Jonas) RN/CM - Cellphone: [phone] Pager: [phone] Covering Service RN/CM Plan of Care - Geraldine De Luna RN - 03/06/2022 6:56 AM EDT Pt had good night, slept in between care, AOx4, VSS except for BP being on the higher side. MD aware. Pt's left arm wound vac alarmed that there was a blockage intermittently throughout night. Site waschecked, tubing was checked and flushed, cannister was changed x 1, and mo pad was changed x 1. The mo pad being changed seemed to be the most effective in alleviating the problem, but the wound vac still intermittently would alarm that there was a blockage. Plan of Care - Geoffrey Hunt RN - 03/05/2022 6:24 PM EDT ?? OUTCOME EVALUATION NOTE: ?? OUTCOME SUMMARY: ?? Pt A&Ox4. Pain 8-10/10 in L hip-given prn oxycodone which keeps pain tolerable per pt. Flat affect. PERRLA. L. Arm and L. Leg weakness; pt able to move weakly. Pulses palpable. Denies SOB-lungs dim. Pt tachycardiac and BP elevated throughout the day-last BP at 1707 elevated at 160/105 w/HR 119-MD notified and aware-no new orders. Numbness present in LUE, RLE, and LLE which is unchanged per pt. Pthas dry, flaky skin on hands and feet-lotion applied. L. Arm +2 edema; BLE trace edema. WVs to L. Arm and L. Leg set to 125mmhg-CDI w/small amount of sero-sang drainage in cannisters. MD changed both WVs at bedside today. Cultures taken from wound sites: aerobic culture came back positive for gram positive cocci and gram negative rods-MD notified and aware-no new orders placed. Pt refusing Masimo-Masimo refusal form filled out and placed in chart. VSS. WCTM. ?? PLAN MOVING FORWARD: ?? Pain control. Encourage movement. Lotion to dry skin in hands and feet. ?? INDIVIDUALIZED FALL PREVENTION INTERVENTIONS: ?? Patient-specific fall risk factors per assessment: [current deficits]: Generalized weakness; strong 2 assist stand-pivot. ?? Assistance [level of assistance required for transfers and ambulation]: 2 assist stand-pivot ?? Supervision [direct monitoring required during toileting and ADLs]: Hands on 2 assist stand-pivot ?? Surveillance [continuous indirect monitoring]: Masimo ?? Patient-specific fall prevention interventions for sensory deficits provided, if applicable: [X] Yeschair alarm on; room near nurse's station; frequent checks ? CARE PLAN GOAL OUTCOME EVALUATION: ? Plan of Care - Geoffrey Hunt RN - 03/04/2022 7:18 PM EDT OUTCOME EVALUATION NOTE: OUTCOME SUMMARY: Pt A&Ox4. Pain 8-9/10 in L hip-given prn oxycodone which keeps pain tolerable per pt. Flat affect. PERRLA. L. Arm and L. Leg weakness; pt able to move weakly. Pulses palpable. Denies SOB-lungs clear. Pt tachycardiac and BP elevated throughout the day-recheck after morning meds 157/106 w/HR 120s-MDnotified and aware-no new orders. Numbness present in LUE and LLE which is unchanged per pt. L. Arm +2 edema; BLE trace edema. [place] to L. Arm and L. Leg set to 125mmhg-CDI w/small amount of sero-sang drainage in cannisters. OOB 2 assist to chair w/OT. While walking back from chair to bed pt knees very weak-strong 2 assist. Other VSS. Hand-off report given. PLAN MOVING FORWARD: NPO at midnight tonight for [place] change tomorrow. Pain control. Encourage movement. INDIVIDUALIZED FALL PREVENTION INTERVENTIONS: Patient-specific fall risk factors per assessment: [current deficits]: Generalized weakness; strong 2 assist stand-pivot. Assistance [level of assistance required for transfers and ambulation]: 2 assist stand-pivot Supervision [direct monitoring required during toileting and ADLs]: Hands on 2 assist stand-pivot Surveillance [continuous indirect monitoring]: Masimo Patient-specific fall prevention interventions for sensory deficits provided, if applicable: [X] Yeschair alarm on; room near nurse's station; frequent checks CARE PLAN GOAL OUTCOME EVALUATION: Care Management - Lizzy Love RN - 03/04/2022 12:37 PM EDT OFFICE OF CARE MANAGEMENT PROGRESS NOTE LOS: Hospital Day 40 days Chart reviewed, care reviewed with primary team and at interdisciplinary rounds. Patient continues to meet inpatient level of care related to: Patient going to OR tomorrow for skin graft closure. Functional status prior to admission: Independent Home Environment: Others in the home: parent(s) (lives with dad). Current Living Arrangements: home/apartment/condo. Accessibility Concerns: 4 steps to enter the trailer. 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: Completely Dependent DME used at home: none Patient is insured through: Primary Insurance: [place] Payor[place] / Plan: [place] / Product Type: *No Product type* / Secondary Insurance: N/A Last Physical Therapy Recommendation: acute rehabilitation facility with to be determined Last Occupational Therapy Recommendation: acute rehabilitation facility with to be determined Plan for discharge is: Acute Rehab Outpatient Agency/Support Group Needs: None Agency Referrals: To be obtained closer to discharge Transportation: TBD Plan going forward: Care Management will continue to follow and assist with discharge planning and coordination of care as indicated. Anticipated Date of Discharge: 03/11/2022 Lizzy Love RN, BSN Case Management Consult Note - Dilia Lemons - 03/04/2022 12:15 PM EDT BIT Evaluation Referral source: Follow up Reason for referral: Recovery support Relevant history: arrived to find patient in bed with father in room. RC just stopped in to check in with Max. Assessment: Max was welcoming and friendly. He had not yet called any of the recovery resources RC left Tuesday but plans to. Interventions delivered: Other: Peer Support Plan: RC will continue to follow patient for duration of admission. Outstanding Discharge Needs: None at this time Time spent with the patient (min):15 minutes Time spent on case coordination (min): 15 minutes Op Note - Willie Sanabria MD - 03/03/2022 6:43 PM EDT [facility] [place] Patient Name: Alix Holland : [id number] MR#: [id number] Case Date: 03/03/2022 Surgeon: Surgeon(s) and Role: * Jeanette Chatterjee MD - Primary * Veto Hidalgo MD - Resident Preoperative diagnosis: left upper and left lower extremity wounds Postoperative diagnosis: left upper and left lower extremity wounds Procedure(s) (LRB): DEBRIDEMENT SKIN AND SUBCU, UPPER EXTREMITY (WRVU 1.01) (Left) DEBRIDEMENT SKIN AND SUBCU, LOWER EXTREMITY (WRVU 1.01) (Left) MODIFIER WOUND VAC (N/A) Findings: 1. Left upper extremity wound vac removed with one piece of adaptic and one black sponge, good granulation tissue, minimal exposed tendon. Measures [id number] 3mm deep. One black sponge replaced and held suction. 2. Left lower extremity wound vac removed with two black sponge with prolene on deep sponge. Wound bed with healthy granulation tissue and minimal fluid. Wound measures 35cmx 15cm x4cm. Two black sponge with prolene on deep sponge replaced and held suction. Anesthesia: General Estimated Blood Loss: 3cc Specimens removed during surgery: None Drains: wound vac x2 to -125mmhg Surgical Closure: Primary Closure - skin incision is closed but with open spaces for wires, brennan, drains or other devices Disposition: awakened from anesthesia, extubated and taken to the recovery room in a stable condition, having suffered no apparent untoward event. 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 He went to the OR??multiple times??for debridement and vac application??of LLE??wound. He is scheduled for planned washout and vac changes to his LUE and LLE wounds today. Procedure Description: The patient was brought to the operating room and placed in the supine position. Anesthesia was initiated and the patient was intubated with LMA on the bed. The patient received no antibiotic prophylaxis. A surgical timeout was performed and all of the attendants in the operating room were in agreement to proceed. The left upper extremity wound vac was removed (one black sponge and one adaptic). Healthy granulation tissue was found in wound??with minimal dry flexor tendons. No significant exudates were present.??The wound measured 20 cm x 7 cm x 3mm deep. The wound vac was replaced using a single black sponge and held suction at -125mmhg. ?? We then removed two black sponges including deep sponge with prolene from the left lower extremity wound vac. Healthy granulation tissue was found in wound with minimal fluid.??No significant exudates were present. The wound measured 35cmx 15cm x4cm. Two black sponges including one deep with 2-0 prolene suture on the deep sponge were placed. The vac held suction at the conclusion of the procedure at -125mmhg. The patient tolerated the procedure well and was transferred to the recovery room in stable condition. The count at the end of the case was correct. Dr. Sanabria was present for the entire procedure. Surgical Infection Prevention Bundle Used? N/A Attestation: Case Date: 03/03/2022 I was present and I participated during the entire procedure (does not need to include opening and closing). WILLIE SANABRIA MD 03/03/2022 Plan of Care - Carlita Malik RN - 03/03/2022 2:46 PM EDT Peripherally Inserted Central Catheter (PICC) Teaching Sheet Peripherally inserted central catheters ([id number]) (PICC) are used when you need IV (intravenous) medicines and fluids. A catheter is a small flexible plastic tube. The catheter is put in through avein under your skin. A vein is a tube inside your body that carries blood from the body to the heart. The catheter is usually put into a vein on the inside of your upper arm. Then it is threaded up this vein and ends in the blood vessel near your heart. The PICC catheter may be used for taking blood for laboratory tests. You may also get IV fluids and medicines quickly and easily. Having the catheter may keep your arm from being stuck many times with a needle. The catheter will have 1-3 small tails (tubes) coming from your arm where the catheter was put in. Why do I need a PICC line or midline catheter? PICC lines are used for senior living treatments. PICC lines may be used for up to a year. They are often put in to give you IV medicines at home. You may need a PICC catheter because caregivers cannot use smaller veins in your body. Smaller veins may be damaged, or they may have poor blood flow. Catheters are also used in case of emergency when you would need medicines or fluids very quickly. The following are medicines and treatments you may get when you have a PICC line. ?? Antibiotics. These are medicines to prevent infection. ?? Frequent blood sample collection. ?? IV medicines that would make your smaller veins sore or damaged. ?? Receiving IV fluids for a long period of time. ?? Pain medicine. ?? Total Parenteral Nutrition: This is also called TPN. TPN is a special liquid food that goes directly into your veins. ?? Blood ?? Chemotherapy (Medicine for cancer) What are the benefits of having a PICC line put in? Having a PICC line may keep your arm from being stuck many times with a needle to draw blood or start an IV (intravenous catheter) . Through a PICC catheter, you may have blood taken for tests. You may also get IV fluids and medicines quickly and easily. Small veins can be damaged or irritated by certain drugs or nutritional solutions. A PICC line helps to decrease vein irritation from antibiotics, IV pain drugs, or IV cancer drugs. A PICC line can be left in place when you go home. If you go home with a PICC line in place, home care can be set up via the nurse [employer] to help you. What are possible complications of having a PICC line put in? Some possible complications are: bruising, swelling, or infection in the arm with the PICC line mal-positioned catheter (catheter tip in wrong place) occlusion (blocked catheter) mechanical phlebitis (vein irritation) and thrombosis (clot) Your doctor is the person you should talk to if you have questions about what would happen if you donot choose to have a PICC line put in. Your doctor can talk to you about other choices you may have. What should I expect when it is put in? A written consent that gives your ok to have it put in needs to be signed after you understand that you are going to have a PICC put in, and all your questions about the procedure have been answered toyour satisfaction. This is a safety feature that the hospital practices before doing procedures. An experienced nurse who has been through special training and education will be putting this catheter in. The procedure is done in a specially equipped room in Interventional Radiology on the third floor. The PICC nurse will first talk to you about any questions that you may have. The PICC nurse willexplain to you what is going to be done before starting. Once you arrive in the procedure room in Interventional Radiology, the PICC nurse will then set up for the procedure. She will unwrap the sterile kit and open the needed supplies. A gown and mask and gloves will be worn while putting it in. An ultrasound machine will be used to help guide the catheterin the right place. This machine uses a handle with sound waves to find the vein. The area on your arm where the catheter will be put in is then numbed with a medicine put under yourskin with a tiny needle. The nurse will then put in the catheter using fluoroscopy (a type of x-ray)as a guide. Once the catheter is in your vein, it will be threaded up your arm to the area before your heart. While it is being threaded, you may be asked to turn your head. When the catheter is in, the nurse will place a small dressing on the site along with a little muller which will help keep the catheter in place. After the procedure is done, a radiologist (doctor in x-ray department) will look at your x-ray to make sure that the end of the catheter is in proper position to give your fluids and/or medications. What should I expect in the care of my PICC? A dressing that is specially made to prevent infections will be put on. After this, the dressing will only be changed once a week unless it needs it sooner. If you go home with the catheter in, you may take a shower as long as you keep the site dry. You сергей this by wearing a specially fitted PICC protector that will be provided to you before discharge from the hospital. The dressing at the site must be kept clean and dry. It is important that you watch for signs of infection at the site. Your healthcare provider should be notified if these occur: Redness Swelling Pus Pain at the site Other reasons to notify your healthcare provider are: Catheter becomes partially or totally removed Unable to infuse medication/fluid Unable to draw back blood from the catheter. This may be an early sign that a clot is forming on the end of the catheter. If this occurs, a medicine called Cathflo may be used to dissolve this clot. Ask the PICC nurse or your doctor, any questions you may have so you feel secure in consenting to having a PICC line. References: Vascular Access Device Selection, Insertion, and Management, [employer] 05/05. A Review of the Efficacy, Safety, Use, and Administration of Cathflo, [employer] 2006 Plan of Care - Rhonda Coyle RN - 03/03/2022 6:10 AM EDT Outcome Evaluation Note: Outcome Summary: Pt A&Ox4, VSS on RA - expect tachycardic, afebrile. Reports 10/10 pain with PRN oxycodone. WoundVac x2 to suction, CDI. AUOP via urinal, no BM this shift. Pt NPO at midnight for OR [place] change. Labsdrawn and sent. [facility] Plan Moving Forward: Pain management. OR Individualized Fall Prevention Interventions: Patient-specific fall risk factors per assessment: [current deficits]: Weakness, unfamiliar environment, pain with narcotic medications, tethering lines. ?? Assistance [level of assistance required for transfers and ambulation]: 2A with Lift. ?? Supervision [direct monitoring required during toileting and ADLs]: Hands on. ?? Surveillance [continuous indirect monitoring]: Masimo, call starks within reach, purposeful hourly rounding, bed alarm, family presence. ?? Patient-specific fall prevention interventions for sensory deficits provided, if applicable: Yes. ?? CPG Goal Outcome Evaluation: Ongoing. Plan of Care - Rama Dean RN - 03/02/2022 3:53 PM EDT OUTCOME EVALUATION NOTE: OUTCOME SUMMARY: A&O x4. BP's continue to be elevated, as high as 153/114, MD notified. Tachycardia into 120's, MD notified. PRN oxycodone 15 mg administered Q4 hrs for 10/10 pain in LUE and LLE. Wound vacs to LUE and LLE intact and holding suction. BLE pulses are dopplerable. +2 Edema is improving in LUE and LLE/Patient worked w/PT today and stood at edge of bed. Lift utilized to get patient to chair and back to bed. Tolerating PO intake well. BM fecal incontinence x2 today. Educated patient on use of bedpan and encouraged him to ring for bedpan if can sense BM. Patient did have one BM in bedpan this evening.Adequate UO in urinal. PLAN MOVING FORWARD: Monitor VS and I/O's. Pain management. Wound vac management. Skin care, repositioning and incontinence care. PT/OT. Future skin graft. Future PICC placement vs. IJ. INDIVIDUALIZED FALL PREVENTION INTERVENTIONS: Patient-specific fall risk factors per assessment: [current deficits]: Pain, narcotics, weakness, impaired mobility, tethering lines. Assistance [level of assistance required for transfers and ambulation]: 2-3 assist w/lift. Supervision [direct monitoring required during toileting and ADLs]: Hands on. Surveillance [continuous indirect monitoring]: abdoul Almanzar w/in reach, purposeful rounding, room near nurse station. Patient-specific fall prevention interventions for sensory deficits provided, if applicable: Yes, non skid socks on when OOB. CARE PLAN GOAL OUTCOME EVALUATION: Ongoing. Consult Note - Dilia Lemons - 03/02/2022 10:00 AM EDT BIT Evaluation Referral source: Follow up Reason for referral: Recovery support Relevant history: RC arrived to find patient siting up in chair next to his bed. He had just finished up with PT so was feeling tired. RC gave him the resources he requested for recovery supports near his home. Valeriy expressed frustration with long hospital stay, explaining that most of his time is usually spent outside, including his work. He asked RC if there was anyway he could get outside I just want some fresh air. RC informed him that there are [employer] that can bring people outside or maybe even his dad, however because he is on soap and water precautions he may not be able to leave the room. RC told him that she would check with his team as they would know if this was possible. Assessment: Valeriy was in good spirits today, though quite tired. He still states that he wants to stay sober when he discharges. He was thankful for the resources. He is hopeful that he can go outside at some point though RC told him it might not be possible. Interventions delivered: Other: Peer Support Plan: RC will speak with nurse about the policies for taking patient out of room. RC will continue to follow patient for duration of admission. Outstanding Discharge Needs: None at this time Time spent with the patient (min):15 minutes Time spent on case coordination (min): 15 minutes Brief Op Note - Willie Sanabria MD - 03/01/2022 9:51 PM EDT Brief Operative Note Patient Name: Alix Holland : [id number] MR#: [id number] Case Date: 03/01/2022 Surgeon: Surgeon(s) and Role: * Willie Sanabria MD - Primary Preoperative diagnosis: s/p compartment syndrome left upper and lower extremity Postoperative diagnosis: s/p compartment syndrome left upper and lower extremity Procedure(s) (LRB): DRESSING CHANGE (FOR OTHER THAN GALLOWAY) UNDER ANES., LOWER EXTREMITY (WRVU 0.86) (Left) DRESSING CHANGE (FOR OTHER THAN GALLOWAY) UNDER ANES., UPPER EXTREMITY (WRVU 0.86) (N/A) Anesthesia: General Findings: Both wounds clean with good granulation tissue covering about 90% of the wounds. One pieceof Adaptik placed over tendons, one black sponge on forearm wound. Two pieces of black sponge for the thigh wound with one piece tunnelled under the sutured section, with a blue prolene marking the endof the sponge. Complications: none Estimated Blood Loss: 3 mls Specimens removed during surgery: None Fluids: 400 mls PRBCs: none (See Anesthesia Record/Report for Other Blood Products) Urine Output: (no urine output recorded) Drains: none Disposition: awakened from anesthesia, extubated and taken to the recovery room in a stable condition, having suffered no apparent untoward event. Condition: doing well without problems (Please see the Surgical Encounter Summary for any Implant and Specimen details pertinent to this patient.) Surgical Infection Prevention Bundle Used? N/A Op Note - Willie Sanabria MD - 03/01/2022 8:09 PM EDT [facility] [place] Patient Name: Alix Holland : [id number] MR#: [id number] Case Date: 03/01/2022 ?? Surgeon: Surgeon(s) and Role: * Willie Sanabria MD - Primary ?? Preoperative diagnosis: s/p compartment syndrome left upper and lower extremity ?? Postoperative diagnosis: s/p compartment syndrome left upper and lower extremity ?? Procedure(s) (LRB): DRESSING CHANGE (FOR OTHER THAN GALLOWAY) UNDER ANES., LOWER EXTREMITY (WRVU 0.86) (Left) DRESSING CHANGE (FOR OTHER THAN GALLOWAY) UNDER ANES., UPPER EXTREMITY (WRVU 0.86) (N/A) ?? Anesthesia: General ?? Findings: Both wounds clean with good granulation tissue covering about 90% of the wounds. One pieceof Adaptik placed over tendons, one black sponge on forearm wound. Two pieces of black sponge for the thigh wound with one piece tunnelled under the sutured section, with a blue prolene marking the endof the sponge. ?? Complications: none ?? Estimated Blood Loss: 3 mls Fluids: 400 mls Specimens removed during surgery: None Drains: none Surgical Closure: Other Than Primary Closure - deep and superficial layers are left completely open during original surgery Disposition: awakened from anesthesia, extubated and taken to the recovery room in a guarded condition. 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 He??has had multiple trips to the OR??for debridement and vac application??of LLE??wound??and LUE vac placement. He is scheduled for planned washout and vac changes to his LUE and LLE wounds today. Procedure Description: Patient was brought to the operating room and remained on his hospital bed. General anesthesia was induced and all appropriate monitors were placed. A timeout procedure was performed at which point all operating staff were in agreement. The VAC was removed from the left arm with1 piece of black sponge. There were 2 small pieces of a Adaptic which were removed. The wound had good granulation tissue with only a small portion of each of the 2 tendons visible. A new piece of Adaptic was placed over both tendons. A new single piece of black sponge was then used to dress the wound. Attention was then directed at the left thigh wound. The VAC dressing was removed to include 2 pieces of black sponge. There was some tunneling under the close portion of the more proximal section of the wound with no evidence of purulent drainage. The remainder of the wound appeared clean and with good granulation tissue. A single piece of black sponge was marked with a Prolene habits and and placedunderneath the closed portion of the wound. A second piece of black sponge was cut to fit the wound and suction achieved at 150 mmHg. Patient was awakened and LMA removed without event. There were no complications. I was present for the entire procedure and worked independently as there was no available residents to assist at this time. Surgical Infection Prevention Bundle Used? N/A Attestation: Case Date: 03/03/2022 I performed this procedure without the involvement of a resident. WILLIE SANABRIA MD 03/04/2022 Care Management - Lizzy Love RN - 03/01/2022 2:10 PM EDT OFFICE OF CARE MANAGEMENT PROGRESS NOTE LOS: Hospital Day 37 days Chart reviewed, care reviewed with primary team and at interdisciplinary rounds. Patient continues to meet inpatient level of care related to: Patient requires wound vac changes in OR. Functional status prior to admission: Independent Home Environment: Others in the home: parent(s) (lives with dad). Current Living Arrangements: home/apartment/condo. Accessibility Concerns: 4 steps to enter the trailer. 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: Completely Dependent DME used at home: none Patient is insured through: Primary Insurance: [place] Pay[place] / Plan[place] / Product Type: *No Product type* / Secondary Insurance: N/A Last Physical Therapy Recommendation: acute rehabilitation facility with to be determined Last Occupational Therapy Recommendation: acute rehabilitation facility with to be determined Plan for discharge is: Pending Hospital Course and PT/OT Recommendations Outpatient Agency/Support Group Needs: None Agency Referrals: TBD determined closer to discharge Transportation: TBD Plan going forward: Care Management will continue to follow and assist with discharge planning and coordination of care as indicated. Anticipated Date of Discharge: 03/05/2022 Lizzy Love RN, BSN Case Management Plan of Care - Madhavi Montano RN - 02/28/2022 4:22 AM EDT OUTCOME EVALUATION NOTE: OUTCOME SUMMARY: Oxycodone 15mg given for 10/10 pain on the left leg. Patient with up trending DBP 114-104. Left thigh wound started blockage alarm around midnight, MD Chahal was paged and made aware of elevated DBP and wound VAC alarm. LUE wound VAC dressing remains intact and maintaining suction at -125mmHg. +doppler signals on bilateral pedal pulses. Voiding in adequate amounts. Incontinent of loose to soft BM. PLAN MOVING FORWARD: Pain control. Neurovascular checks. Repositioning q2hrs ?? INDIVIDUALIZED FALL PREVENTION INTERVENTIONS: ?? Patient-specific fall risk factors per assessment: [current deficits]: Narcotic pain med, use of mechanical lift, generalized weakness, ?? Assistance [level of assistance required for transfers and ambulation]: 2 assist using mechanical lift ?? Supervision [direct monitoring required during toileting and ADLs]: Hands on ?? Surveillance [continuous indirect monitoring]: Purposeful rounding, call starks within reach ?? Patient-specific fall prevention interventions for sensory deficits provided, if applicable: YES. Light adjusted for tasks/safety ? CPG GOAL OUTCOME EVALUATION: Plan of Care - Madhavi Montano RN - 02/27/2022 5:36 AM EDT OUTCOME EVALUATION NOTE: OUTCOME SUMMARY: Alix reports a constant 10/10 pain on the left leg. He asked for pain medication around 2330 and wasnot due for any PRN OXycodone until 0, MD Pereira was paged and came to visit patient, additional Oxycodone 5mg was given x1 dose. Remains tachycardic into the 100s-110s. Voiding in adequate amounts. Wound VAC on LUE and Left thigh are intact, without any leakage and is maintaining suction. +doppler signals on bilateral pedal pulses. Refused to turn at times. PLAN MOVING FORWARD: Pain control. Neurovascular checks. Repositioning q2hrs INDIVIDUALIZED FALL PREVENTION INTERVENTIONS: Patient-specific fall risk factors per assessment: [current deficits]: Narcotic pain med, use of mechanical lift, generalized weakness, Assistance [level of assistance required for transfers and ambulation]: 2 assist using mechanical lift Supervision [direct monitoring required during toileting and ADLs]: Hands on Surveillance [continuous indirect monitoring]: Purposeful rounding, call starks within reach Patient-specific fall prevention interventions for sensory deficits provided, if applicable: YES. Light adjusted for tasks/safety CPG GOAL OUTCOME EVALUATION: Op Note - Parrish Betancourt MD - 02/26/2022 8:58 AM EDT [facility] [place] Patient Name: Alix Holland : [id number] MR#: [id number] Case Date: 02/26/2022 Surgeon: Surgeon(s) and Role: * Parrish Betancourt MD - Primary Preoperative diagnosis: left upper and lower extremity fasciotomies Postoperative diagnosis: left upper and lower extremity fasciotomies Procedure(s) (LRB): DRESSING CHANGE (FOR OTHER THAN GALLOWAY) UNDER ANES., LOWER EXTREMITY (WRVU 0.86) (Left) DRESSING CHANGE (FOR OTHER THAN GALLOWAY) UNDER ANES., UPPER EXTREMITY (WRVU 0.86) (Left) DEBRIDEMENT SKIN, SUBCU, MUSCLE, UPPER EXTREMITY (WRVU 2.7) (Left) Anesthesia: General Estimated Blood Loss: 5 mL Findings: ?? Necrotic and devitalized tendon on the left volar forearm which sharply debrided and discarded from the field. ?? Remaining upper extremity wound completely granulated in and healthy in appearance. ?? Left lower extremity wound again granulating nicely except for the most proximal portion which still has a significant defect. Overall the lower extremity and upper extremity are not amenable for grafting today. Specimens removed during surgery: None Drains: none Surgical Closure: closed with VAC sponge Disposition: awakened from anesthesia, extubated and taken to the recovery room in a stable condition, having suffered no apparent untoward event. Condition: doing well without problems (Please see the Surgical Encounter Summary for any Implant and Specimen details pertinent to this patient.) HPI/Surgical Indications: Patient is a 31-year-old gentleman well-known to the trauma and acute caresurgical service after undergoing fasciotomies of both the left upper and lower extremities following a pressure induced compartment syndrome that was complicated by bleeding in the collection. The surgical team has been managing his wounds with every other day VAC sponge changes as well as slow closure of the lower extremity wound. He returns to the operating room today for reevaluation, VAC change and evaluation for possible split-thickness skin graft. Patient has a serial consent in the chart. Procedure Description: The patient was taken to the operating by the anesthesia staff where he underwent successful anesthetic induction and LMA placement. His left upper and lower extremities were prepped draped in a standard usual fashion. An operative room timeout is performed per protocol discrepancies. Patient received a preoperative dose of IV antibiotics. I first turned my attention to the left upper extremity wound and found the granulation tissue to be healthy in appearance except over an area of exposed tendon which has improved but seems to have stalled at this point time with VAC spongetherapy. Upon examination of this portion of the tendon I found the majority of it to be necrotic and devitalized and was removed from the field using sharp dissection. This was not sent for pathology.Next placed 2 small pieces of Adaptic gauze over the exposed tendon followed by placement of the VACsponge device attaining a pressure of 125 mmHg. . The left lower extremity wound was evaluated and found to have excellent granulation tissue exceptfor the most proximal portion. There is no evidence of drainage or infection in the deep recesses ofthe proximal portion of the wound. This wound is closing down nicely. A VAC sponge was replaced per protocol with 125 mmHg applied. Patient tolerated seizure well without complication. He will return to the operating room in 2 to 3 days for repeat sponge change as well as evaluation for possible split-thickness skin graft. He was woke from anesthesia and transferred to recovery room in stable condition. Surgical Infection Prevention Bundle Used? No Attestation: Case Date: 02/26/2022 I performed this procedure without the involvement of a resident. PARRISH BETANCOURT MD 03/09/2022 Care Management - Lizzy Love RN - 02/25/2022 11:38 AM EDT OFFICE OF CARE MANAGEMENT PROGRESS NOTE LOS: Hospital Day 33 days Chart reviewed, care reviewed with primary team and at interdisciplinary rounds. Patient continues to meet inpatient level of care related to: OR grafting tomorrow. Functional status prior to admission: Independent Home Environment: Others in the home: parent(s) (lives with dad). Current Living Arrangements: home/apartment/condo. Accessibility Concerns: 4 steps to enter the trailer. 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: Completely Dependent DME used at home: none Patient is insured through: Primary Insurance: [place] / [place] / Product Type: *No Product type* / Secondary Insurance: N/A Last Physical Therapy Recommendation: acute rehabilitation facility with to be determined Last Occupational Therapy Recommendation: acute rehabilitation facility with to be determined Plan for discharge is: Pending Hospital Course and PT/OT Recommendations Outpatient Agency/Support Group Needs: None Agency Referrals: [facility] for outpt HD Transportation: Family Plan going forward: Care Management will continue to follow and assist with discharge planning and coordination of care as indicated. Anticipated Date of Discharge: 03/05/2022 Lizzy Love RN, BSN Case Management Consult Note - Dilia Lemons - 02/25/2022 11:00 AM EDT BIT Evaluation Referral source: Follow up Reason for referral: Recovery support Relevant history: Patient was in good spirits today and gross a nice conversation with RC. He explained that he is very active and thus motivated to get his legs working again. 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 Being in nature is something that this patient values. He expressed a desire to continues working with someone on a peer level when he leaves a potentially working his way up to a group setting, he might be interested in individual counseling. PT was waitingto work with this patient so RC excused herself. Assessment: Patient was welcoming and friendly. He was more conversational this visit. Still reporting a desire to abstain from substances. Patient is open to BIT RC coming back next week. Interventions delivered: Other: Peer Support Plan: RC will continue to follow patient for duration of admission. Outstanding Discharge Needs: Other: not at this time Time spent with the patient (min):30 minutes Time spent on case coordination (min): 15 minutes Plan of Care - Rama Dean RN - 02/24/2022 5:59 PM EDT OUTCOME EVALUATION NOTE: OUTCOME SUMMARY: A&O x4. Afebrile. Tachycardia in low 100's. BP's elevated 140-150's/90-100. Pain reported as 10/10 in LUE and LLE. Moderately controlled w/scheduled and PRN medication. Patient was NPO for wound vac change this a.m. Back to room around 1400. Wound vacs to LUE and LLE holding suction at -125 mmHg. Provided CHG bath. Skin intact on sacrum. Redness on inner thighs is improving w/continued use of antifungal ointment and powder. Voiding adequate amounts in urinal. Tolerating PO intake this afternoon,+ flatus. BM incontinence x1 today. Patient worked w/PT and OT today and stood at edge of bed w/heavy 2 assist. Family at bedside this afternoon. PLAN MOVING FORWARD: Monitor VS and I/O's. Monitor labs/kidney fxn. Pain management. Wound vac changes MWF. PT/OT. INDIVIDUALIZED FALL PREVENTION INTERVENTIONS: Patient-specific fall risk factors per assessment: [current deficits]: Pain, weakness, narcotics, tethering lines. Assistance [level of assistance required for transfers and ambulation]: 2 assist w/lift Supervision [direct monitoring required during toileting and ADLs]: Hands on. Surveillance [continuous indirect monitoring]: abdoul Almanzar w/in reach, purposeful rounding, room near nurse station. Patient-specific fall prevention interventions for sensory deficits provided, if applicable: Yes, non skid socks on when OOB CARE PLAN GOAL OUTCOME EVALUATION: Ongoing. Consult Note - Ajit Simmons RN - 02/24/2022 2:27 PM EDT Certified Wound Care Nurse Note Situation: Follow up to see Alix Holland for fungal rash at buttock, MASD groins. Background: eD-H notes reviewed for history, admitting diagnosis and active problem list. H&P from 02/11: Alix Holland??is a 31 y.o.??male??with multiple comorbidities admitted with acute renal failure in setting of rhabdomyolysis from compartment syndrome after found down following fentanyl overdose, now s/p??LUE and LLE??fasciotomies c/b bleeding from LLE fasciotomy wound??s/p??serial??debridement and vac placement.??LLE fasciotomy with evidence of Pseudomonas and Serratia infections.?? RN at bedside with GUIDE VISITOR; Patient has just returned from OR. RN reports she has provided care for patient for several days and has no longer MASD at groin, resolving sungal infection. Patient seen this afternoon in room 422 in bed, reason for visit explained to patient, permission received to assess skin. ?? Wound Assessment and Care Provided: Patient turned onto the right side, sacral dressing peeled down.The sacrococcygeal region is with pink/blanchable tissue. There appears to be dusky pink coloration at the groin region, blanchable. Sacral dressing reapplied. Nursing continued with cares. Quintin Score: 15 Last Pressure Ulcer Prevention assessment: Shift Pressure Injury Prevention Occiput: No Injury Thoracic Spine: No Injury Sacral: Redness, Blanchable Ischial - left: Existing Injury Ischial - right: No Injury Heel - left: No Injury Heel - right: No Injury Elbow - left: No Injury Elbow - right: No Injury Device Sites: O2 sat monitor, IV sites Other Sites: wound vac x2 Nutritional Status Wt Readings from Last 1 Encounters: 02/24/22 89.7 kg (197 lb 12.8 oz) Body mass index is 26.82 kg/m??. Labs Lab Results Component Value Date ALBUMIN 2.3 (L) 02/21/2022 ALBUMIN 1.3 (L) 02/12/2022 ALBUMIN 1.4 (L) 02/05/2022 PREALBUMIN 15 (L) 02/12/2022 WBC 8.1 02/23/2022 WBC 8.9 02/22/2022 WBC 8.9 02/21/2022 HGB 7.0 (L) 02/23/2022 HGB 7.3 (L) 02/22/2022 HGB 6.9 (L) 02/21/2022 HCT 22.4 (L) 02/23/2022 HCT 22.7 (L) 02/22/2022 HCT 21.4 (L) 02/21/2022 Nutritional Intake Nutrition Diet/Nutrition Received: NPO Diet/Feeding Assistance: none Diet/Feeding Tolerance: poor Intake (%): 0% Nutrition Risk Screen: no indicators present Current bed: [facility] Assessment: Patient is free of MASD at groins and resolving fungal infection at gluteal region/groins. Please continue with antifungal treatment per SEP. Wound Care Recommendations: Mepilex Border Sacrum dressing to sacrum-Assess beneath the dressing daily and reapply, sealing edges with skin prep. Change every 3 days and PRN: 1. Cleanse skin with dermal wound cleanser. 2. Apply Mepilex Border Sacrum dressing making sure to apply directly against the skin. 3. Seal edges with skin prep. If the Mepilex Border Sacrum needs to be changed more than once a day due to soiling then discontinue and use shield barrier wipes and apply zinc barrier cream to denuded skin Refer to adult/pediatric pressure ulcer prevention job aid in the clinical policy library highlighting the following points: Mobility: Turn and reposition every 2 hours and document in ED-H. Place a pillow above and below sacral area to off load pressure to the sacrum Offload pressure from heels by placing pillows lengthwise beneath legs while in bed. Offload pressure from heels by adjusting length of foot of bed. Moisture: Follow a bowel and bladder schedule for incontinent patients and document. Cleanse skin gently after each incontinence episode with Shield Barrier wipes. Apply Z-Guard Skin Protectant Paste to denuded perineal skin bid and prn. Consider use of a fecal incontinence containment device. Assess skin for fungal infections, notify provider. Use disposable air pads (white chux) to maintain dry skin and prevent fungal infections. Avoid adult diapers except when patient is out of bed to ambulate or in a chair. Place InterDry Ag in a single layer into skin folds, making sure that 2 inches of the fabric extendsout beyond the skin fold to the air Wound Care will complete the consult. Discussed plan with: RN: Rama Please contact Ajit Simmons RN on secure chat, pager [phone] or the wound care team at [phone] or pager [phone] with skin and wound care concerns or questions. Op Note - Elaine Dos Santos MD - 02/24/2022 12:14 PM EDT [facility] [place] Patient Name: Alix IQBAL: [id number] MR#: [id number] Case Date: 02/24/2022 Surgeon: Surgeon(s) and Role: * Parrish Betancourt MD - Primary * Veto Hidalgo MD - Resident * Elaine Dos Santos MD - Resident Preoperative diagnosis: soft tissue infection Postoperative diagnosis: soft tissue infection Procedure(s) (LRB): DRESSING CHANGE (FOR OTHER THAN GALLOWAY) UNDER ANES., UPPER EXTREMITY (WRVU 0.86) (Left) DEBRIDEMENT SKIN, SUBCU, MUSCLE, LOWER EXTREMITY (WRVU 2.7) (Left) Findings: 1. Left forearm wound vac removed with one black sponge, measured 22 cm by 8 cm x 3 mm, with healthygranulation tissue. One black sponge placed. 2. Left thigh wound vac removed three black sponges, including sponge with prolene marking distal aspect. Wound with healthy granulation tissue, no evidence of purulence. Closed superior aspect of wound with 3-0 vicryl deep dermal sutures and 2-0 prolene horizontal mattress sutures. Wound measures 35cm x 13 cm x4.5cm with 9 cm of tunneling. One black sponge placed with prolene suture marking end of sponge. Anesthesia: General Estimated Blood Loss: * No values recorded between 02/24/2022 11:15 AM and 02/24/2022 11:51 AM * Specimens removed during surgery: None Drains: Wound vac x2 Surgical Closure: Other Than Primary Closure - deep and superficial layers are left completely open during original surgery Disposition: awakened from anesthesia, extubated and taken to the recovery room in a stable condition, having suffered no apparent untoward event. 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 He has had multiple trips to the OR for debridement and vac application??ofLLE??wound??and LUE vac placement. He is scheduled for planned washout and vac changes to his LUE and LLE wounds today. Procedure Description: The patient was brought to the operating room and placed in the supine position. Anesthesia was initiated and a LMA was placed.??The patient received??his scheduled antibiotics??for antibiotic prophylaxis. ??A surgical timeout was performed and all of the attendants in the operating room were in agreement to proceed. ?? The left upper extremity wound vac was removed (one black sponge). The surrounding skin was prepped with betadine.??Healthy granulation tissue was found throughout the wound, with budding granulation tissue on the flexor tendons. No significant exudates were present. ??The wound measured 22 cm by 8 cmx 3 mm . The wound vac was replaced using a single black sponge and held suction at -125mmhg. ?? We then??turned to his left lower extremity wound. We??removed three black sponges from the left lower extremity wound vac and prepped and draped the left lower extremity with betadine.??Healthy granulation tissue was found in wound.??No significant exudates were present.??About 5 cm of the wound was c losed with 3-0 vicryl deep dermal sutures and 2-0 prolene horizontal mattress sutures placed at superior aspect of wound. The??wound measured 35cm length x13cm wide and 4.5 cm deep with continued posterior tunneling (9 cm). One black sponge with a prolene at the superior edge was placed into the wound. The vac held suction at the conclusion of the procedure at -125mmhg.? The patient tolerated the procedure well and was transferred to the recovery room in stable condition. The count at the end of the case was correct. was present/available??for the entire procedure. Surgical Infection Prevention Bundle Used? N/A Associated attestation - Parrish Betancourt MD - 02/25/2022 2:17 PM EDT Attestation: Case Date: 02/24/2022 I was present and I participated during the entire procedure (does not need to include opening and closing). PARRISH BETANCOURT MD 02/25/2022 Plan of Care - Lisa Ricardo RN - 02/24/2022 6:46 AM EDT OUTCOME EVALUATION NOTE: OUTCOME SUMMARY: Max had an ok night. VSS on RA with exception of tachycardic to low 100's. Pt denies CP, SOB or nausea. L forearm and left thigh vac to -125. Pt incontinent of stool overnight x2. Voiding adequately in urinal. Pt c/o 05/10, but able to sleep well between care. PRN dilaudid given x2. NPO midnight forvac change in OR today. WCTM. PLAN MOVING FORWARD: MWF vac changes - NPO For vac change today Manage pain PT/OT INDIVIDUALIZED FALL PREVENTION INTERVENTIONS: Patient-specific fall risk factors per assessment: [current deficits]: Recent surgery, narcotics forpain management, tethering lines and drains, generalized weakness, unfamiliar environment. Assistance [level of assistance required for transfers and ambulation]: 2 assist/lift Supervision [direct monitoring required during toileting and ADLs]: Hands on Surveillance [continuous indirect monitoring]: Environmental monitoring, purposeful rounding, rings call starks appropriately Patient-specific fall prevention interventions for sensory deficits provided, if applicable: Non-skid slippers on, lighting adjusted, belongings within reach. CPG GOAL OUTCOME EVALUATION: Consult Note - Dilia Lemons - 02/23/2022 11:00 AM EDT BIT Evaluation Referral source: Follow up Reason for referral: Recovery support Relevant history: Alix was much more alert today when RC arrived. RC and Alix talked about some things he enjoys doingsuch as fishing and snowmobiling. He was able to identify some sober friends and his father as his main supports. He is not interested in group meetings at this time but may be open to one on one. Alixstates that he is not interested in MAT at this time, but is open to RC returning. Assessment: Alix was more alert today and was open to speaking the RC. He did not make much eye contact, and answered questions when asked with very little detail and a lot of prompting. He did express a desire tostop using drugs, however was not interested in creating a recovery plan at this time. Interventions delivered: Other: Peer Support Plan: RC will try to meet with alix again on . Outstanding Discharge Needs: Other: not at this time Time spent with the patient (min):30 minutes Time spent on case coordination (min): 15 minutes Plan of Care - Rhonda Coyle RN - 02/22/2022 6:22 PM EDT Outcome Evaluation Note: Outcome Summary: Pt A&Ox4, afebrile. VSS on RA, tachycardic in the 130's. Pt reporting 10/10 pain with PRN Oxycodone and scheduled Tylenol. Flexiseal draining loose stool. Pt with AUOP in urinal. Pt down to OR for LLE & LUE debridement and wound vac change, wound vac to -125 continuous. Pt with visitor majority of afternoon. ID MD Michael MARTEL'helena IV abx. Bed alarm on for safety. [facility] Plan Moving Forward: HD. Pain management. Wound Vac to -125 suction. Individualized Fall Prevention Interventions: Patient-specific fall risk factors per assessment: [current deficits]: Weakness, unfamiliar environment, pain with narcotic medications, tethering lines. Assistance [level of assistance required for transfers and ambulation]: 2A with Lift. Supervision [direct monitoring required during toileting and ADLs]: Hands on. Surveillance [continuous indirect monitoring]: Masimo, call starks within reach, purposeful hourly rounding, bed alarm, family presence. Patient-specific fall prevention interventions for sensory deficits provided, if applicable: Yes. CPG Goal Outcome Evaluation: Ongoing. Consult Note - Dilia Lemons - 02/22/2022 1:40 PM EDT BIT Evaluation Referral source: Consult request by primary team physician Reason for referral: Recovery support Relevant history: arrived to find Alix in bed with father at bedside. RC introduced herself and her role. Alix answered a few questions but was too tired for a full conversation. He was open to RC returning tomorrow. Interventions delivered: Other: Peer Support Plan: RC will follow patient for duration of stay Outstanding Discharge Needs: None at this time Time spent with the patient (min):15 minutes Time spent on case coordination (min): 15 minutes Care Management - Lizzy Love RN - 02/22/2022 1:37 PM EDT OFFICE OF CARE MANAGEMENT PROGRESS NOTE LOS: Hospital Day 30 days Chart reviewed, care reviewed with primary team and at interdisciplinary rounds. Patient continues to meet inpatient level of care related to: Patient continues to require wound vac changes for large wound. I&D consulted for wound infection. Patient continues to require HD. Functional status prior to admission: Independent Home Environment: Others in the home: parent(s) (lives with dad). Current Living Arrangements: home/apartment/condo. Accessibility Concerns: 4 steps to enter the trailer. 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: Completely Dependent DME used at home: none Patient is insured through: Primary Insurance: [place] Payor: [place] / Plan: [place] / Product Type: *No Product type* / Secondary Insurance: N/A Last Physical Therapy Recommendation: acute rehabilitation facility with to be determined Last Occupational Therapy Recommendation: acute rehabilitation facility with to be determined Plan for discharge is: Pending Hospital Course and PT/OT Recommendations Outpatient Agency/Support Group Needs: None Agency Referrals: [facility] for HD Transportation: Family Plan going forward: Care Management will continue to follow and assist with discharge planning and coordination of care as indicated. Anticipated Date of Discharge: 02/26/2022 Lizzy Love RN, BSN Case Management Brief Op Note - Elaine Dos Santos MD - 02/22/2022 9:42 AM EDT Brief Operative Note Patient Name: Alix Holland : [id number] MR#: [id number] Case Date: 02/22/2022 Surgeon: Surgeon(s) and Role: * Parrish Betancourt MD - Primary * Veto Hidalgo MD - Resident * Elaine Dos Santos MD - Resident Preoperative diagnosis: soft tissue infection Postoperative diagnosis: soft tissue infection Procedure(s) (LRB): DEBRIDEMENT SKIN, SUBCU, MUSCLE, LOWER EXTREMITY (WRVU 2.7) (Left) MODIFIER WOUND VAC (Left) DRESSING CHANGE (FOR OTHER THAN GALLOWAY) UNDER ANES., UPPER EXTREMITY (WRVU 0.86) (Left) Anesthesia: General Findings: 1. Left forearm wound vac removed with one black sponge, measured 22 cm by 8 cm, with healthy granulation tissue. Sharp excisional debridement of tissue on exposed tendon. One black sponge placed. 2. Left thigh wound vac removed two sponges. Wound measured 53 cm x 15cm x8 cm. Evidence of healthy granulation tissue, no purulence appreciated. Closed superior aspect of wound with 3-0 vicryl deep dermal and prolene horizontal mattress sutures. One black sponge placed into deep cavity with prolene suture marking end of sponge; two superficial black sponges placed over the rest of the wound. Complications: None Estimated Blood Loss: * No values recorded between 02/22/2022 8:00 AM and 02/22/2022 9:11 AM No values recorded between 02/22/2022 8:00 AM and 02/22/2022 9:11 AM * Specimens removed during surgery: None Fluids: Intraprocedure Crystalloid Total None PRBCs: none (See Anesthesia Record/Report for Other Blood Products) Urine Output: (no urine output recorded) Drains: Wound vac x2 Disposition: awakened from anesthesia, extubated and taken to the recovery room in a stable condition, having suffered no apparent untoward event. Condition: doing well without problems (Please see the Surgical Encounter Summary for any Implant and Specimen details pertinent to this patient.) Surgical Infection Prevention Bundle Used? N/A Op Note - Elaine Dos Santos MD - 02/22/2022 9:27 AM EDT [facility] [place] Patient Name: Alix Holland : [id number] MR#: [id number] Case Date: 02/22/2022 Surgeon: Surgeon(s) and Role: * Parrish Betancourt MD - Primary * Veto Hidalgo MD - Resident * Elaine Dos Santos MD - Resident Preoperative diagnosis: soft tissue infection Postoperative diagnosis: soft tissue infection Procedure(s) (LRB): DEBRIDEMENT SKIN, SUBCU, MUSCLE, LOWER EXTREMITY (WRVU 2.7) (Left) MODIFIER WOUND VAC (Left) DRESSING CHANGE (FOR OTHER THAN GALLOWAY) UNDER ANES., UPPER EXTREMITY (WRVU 0.86) (Left) Findings: 1. Left forearm wound vac removed with one black sponge, measured 22 cm by 8 cm, with healthy granulation tissue. Sharp excisional debridement of tissue on exposed tendon. One black sponge placed. 2. Left thigh wound vac removed two sponges. Wound measured 53 cm x 15cm x8 cm. Evidence of healthy granulation tissue, no purulence appreciated. Closed superior aspect of wound with 3-0 vicryl deep dermal and prolene horizontal mattress sutures. One black sponge placed into deep cavity with prolene suture marking end of sponge; two superficial black sponges placed over the rest of the wound. Anesthesia: General Estimated Blood Loss: * No values recorded between 02/22/2022 8:00 AM and 02/22/2022 9:11 AM * Specimens removed during surgery: None Drains: Wound vac x2 Surgical Closure: Other Than Primary Closure - deep and superficial layers are left completely open during original surgery Disposition: awakened from anesthesia, extubated and taken to the recovery room in a stable condition, having suffered no apparent untoward event. 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 He has had multiple trips to the OR for debridement and vac application??ofLLE??wound and LUE vac placement. He is scheduled for planned washout and vac changes to his LUE andLLE wounds today. Procedure Description: The patient was brought to the operating room and placed in the supine position. Anesthesia was initiated and a LMA was placed.??The patient received??his scheduled antibiotics??for antibiotic prophylaxis. ??A surgical timeout was performed and all of the attendants in the operating room were in agreement to proceed. ?? The left upper extremity wound vac was removed (one black sponge).??Healthy granulation tissue was found throughout the wound, with budding granulation tissue on the flexor tendons. No significant exudates were present. Sharp excisional debridement with a 10 blade was performed ??The wound measured 22cm in length, 8 cm wide. The wound vac was replaced using a single black sponge and held suction at -125mmhg. ?? We then??turned to his left lower extremity wound. We??removed two black sponges from the left lowerextremity wound vac and prepped and draped the left lower extremity with betadine.??The sponges wereremoved in one piece. Healthy granulation tissue was found in wound.??No significant exudates were pr esent.??About 5 cm of the wound was closed with 3-0 vicryl deep dermal sutures and 0-0 horizontal mattress sutures placed at superior aspect of wound. The wound measured 53cm length x15cm wide and 8cm deep with continued posterior tunneling. One black sponge with a prolene at the superior edge was placed into tunneled part of the wound.??Two black sponges were placed to cover the remaining aspect of the wound (for three total sponges in the LLE). The vac held suction at the conclusion of the procedure at -125mmhg.? The patient tolerated the procedure well and was transferred to the recovery room in stable condition. The count at the end of the case was correct. was present/available??for the entire procedure. Surgical Infection Prevention Bundle Used? N/A Associated attestation - Parrish Betancourt MD - 02/23/2022 1:06 PM EDT Attestation: Case Date: 02/22/2022 I was present and I participated during the entire procedure (does not need to include opening and closing). PARRISH BETANCOURT MD 02/23/2022 Plan of Care - Rama Dean RN - 02/21/2022 6:40 PM EDT OUTCOME EVALUATION NOTE: OUTCOME SUMMARY: A&O x4. Afebrile. BP's elevated today 140-150's systolic, low 100's diastolic. Notified MD. Tachycardia 110's, 130's w/activity, MD notified. Notified MD of hemoglobin 6.9, orders placed for 1 unitRBC. Administered w/out issue, patient tolerated well. Patient reports 10/10 pain in L hip, moderately controlled w/scheduled meds and PRN oxycodone Q4. Tolerating PO intake well. Rectal tube in place,which dislodged 2x today. Reinserted and in place at this time. Administered previously refused stool softeners after educating patient will help with secure rectal tube placement. Voiding adequate amounts in urinal. Wound vacs in place to left hip/thigh and L arm, suction maintained at -125 mmHg each. NPO at midnight for debridement and wound vac change tomorrow. A.M. labs will help determine day ofnext HD per nephrology. PLAN MOVING FORWARD: Monitor VS and I/O's. Pain management. IV abx. Monitor labs. Wound vac change in OR 02/22. HD. INDIVIDUALIZED FALL PREVENTION INTERVENTIONS: Patient-specific fall risk factors per assessment: [current deficits]: Weakness, History of falls, pain, narcotics, tethering lines. Assistance [level of assistance required for transfers and ambulation]: 2 assist w/lift and 2 assistfor rolls. Supervision [direct monitoring required during toileting and ADLs]: Hands on. Surveillance [continuous indirect monitoring]: abdoul Almanzar w/in reach, purposeful rounding, room near nurse station. Patient-specific fall prevention interventions for sensory deficits provided, if applicable: Yes, non skid socks on when OOB. CARE PLAN GOAL OUTCOME EVALUATION: Ongoing. Plan of Care - Brittney Ann RN - 02/21/2022 5:29 AM EDT OUTCOME EVALUATION NOTE: OUTCOME SUMMARY: Pt A&Ox4 throughout shift. Pt tolerating regular diet w/out complaints of N/V. Pt receiving KVO for abx via purple port of R TL IJ, tolerating well. Pt did not ambulate during shift. Pt w/Wound Vacx2, tolerating w/complaints of pain relieved with scheduled oxycodone 15mg po. Pt voiding QS via urinal, no c/o pain. Pt has moved bowels via Flexiseal over this shift. Pt able to rest between care. Bed Alarm activated for safety. PLAN MOVING FORWARD: Monitor Pain, Monitor I&O, Encourage Ambulation, Monitor PO tolerance, Maintain Safety, Discharge Planning INDIVIDUALIZED FALL PREVENTION INTERVENTIONS: Patient-specific fall risk factors per assessment: [current deficits]: Narcotics, History of falls, Needs assistance getting out of bed or chair, Pain with movement/ambulation. Assistance [level of assistance required for transfers and ambulation]: Non-skid shoes/slippers, Ceiling lift with max lift assist Supervision [direct monitoring required during toileting and ADLs]: Hands on Surveillance [continuous indirect monitoring]: Purposeful rounding, Call starks in reach, Bed alarm, Direct observation Patient-specific fall prevention interventions for sensory deficits provided, if applicable: [X] YesLight adjusted for task/safety CPG GOAL OUTCOME EVALUATION: Plan of Care - Rama Dean RN - 02/20/2022 5:07 PM EDT OUTCOME EVALUATION NOTE: OUTCOME SUMMARY: VSS on RA, w/exception of tachycardia into 110-120's. MD aware. Pain reported as 10/10 in L hip, PRNoxycodone administered Q 4 hours along w/scheduled medications. Wound vac on L arm and L hip holdingsuction -125mm Hg. Ayala DC'd per orders. Patient voided 500 cc w/PVR of 23 ml this afternoon. Repositioning patient with wedge pillow, side to side turn. Incontinence care provided for leak around rectal tube. Patient tolerating PO intake. Did not have appetite this a.m., but he ate a late breakfast and the rest of his meals. PLAN MOVING FORWARD: Monitor VS and I/O's. Pain management. IV abx. Wound vac management. HD. Repositioning. INDIVIDUALIZED FALL PREVENTION INTERVENTIONS: Patient-specific fall risk factors per assessment: [current deficits]: Weakness, pain, narcotics, tethering lines. Assistance [level of assistance required for transfers and ambulation]: 2-3 assist w/lift. Supervision [direct monitoring required during toileting and ADLs]: Hands on. Surveillance [continuous indirect monitoring]: Yohan, abdoul starks w/in reach, purposeful rounding, room near nurse station. Patient-specific fall prevention interventions for sensory deficits provided, if applicable: Yes. CARE PLAN GOAL OUTCOME EVALUATION: Ongoing. Plan of Care - Betzaida Francois RN - 02/20/2022 3:01 AM EDT OUTCOME EVALUATION NOTE: OUTCOME SUMMARY: Pt had a uneventful night.BP and O2 sats stable on RA. Patient has a tachycardia. Pain managed with Oxy 15 mg PRN.W-Vac @ -125 to his Lt leg and Lt arm. Mobility with lift and 2-3 assist. . Voids via ayala's.Flexi seal in place.WCM. PLAN MOVING FORWARD: Pain management and Monitor I&O. CPG GOAL OUTCOME EVALUATION: Ongoing Op Note - Floridalma Sandoval MD - 02/19/2022 10:20 AM EDT [facility] [place] Patient Name: Alix Holland : [id number] MR#: [id number] Case Date: 02/19/2022 Surgeon: Surgeon(s) and Role: * Jayme Armstrong MD - Primary * Kim Ovalle APRN - Nurse Practitioner * Kaitlyn Rock MD - Resident * Floridalma Sandoval MD - Assisting Attending Preoperative diagnosis: LUE and LLE fasciotomies Postoperative diagnosis: LUE and LLE fasciotomies Procedure(s) (LRB): DEBRIDEMENT SKIN, SUBCU, MUSCLE, LOWER EXTREMITY (WRVU 2.7) (Left) DRESSING CHANGE (FOR OTHER THAN GALLOWAY) UNDER ANES., UPPER EXTREMITY (WRVU 0.86) (Left) Findings: 1. Left forearm wound vac removed with one black sponge, measured 22 cm in length, 9 cm wide, 3mm deep with good granulation tissue, some exposed tendon, one black sponge placed 2. Left thigh wound vac removed with two sponges, wound measured 53cm length x15cm wide and 8cm deepwith 12cm of posterior tunneling with good granulation without purulence, wound vac replaced with two black sponges Anesthesia: General Estimated Blood Loss: 2 mL Specimens removed during surgery: None Drains: LUE and LLE NPWT Surgical Closure: Other Than Primary Closure - deep and superficial layers are left completely open during original surgery Disposition: awakened from anesthesia, extubated and taken to the recovery room in a stable condition, having suffered no apparent untoward event. Condition: doing well without problems (Please see the Surgical Encounter Summary for any Implant and Specimen details pertinent to this patient.) HPI/Surgical Indications: Alix Holland is a 31 y.o. 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 He has returned to the OR serially (last 02.17) for debridement and vac application??of LLE??wound and LUE vac placement. He is scheduled for planned washout and vac changes to his LUE and LLE wounds today. Procedure Description: The patient was brought to the operating room and placed in the supine position. Anesthesia was initiated and the patient was intubated.??The patient received??his scheduled antibiotics??for antibioticprophylaxis. A surgical timeout was performed and all of the attendants in the operating room were in agreement to proceed. ?? The left upper extremity wound vac was removed (one black sponge).?? The left arm was then prepped and draped in the usual sterile fashion. Healthy granulation tissue was found in wound??with minimal dry flexor tendons. No significant exudates were present.??The wound measured 22 cm in length, 9 cm wid e, 3mm deep. The wound vac was replaced using a single black sponge and held suction at -125mmhg. ?? We then??turned our attention to the left lower extremity.??Two black sponges were removed from the left lower extremity wound vac. The wound vac was found to be out of battery, resulting in pooling ofserosanguinous fluid within the wound. A culture of the deep portion of the wound with the most significant pooling was obtained. The left thigh was then prepped and draped in the usual sterile fashion.??Healthy granulation tissue was found in wound with minimal dusky- appearing tissue.??No significantexudates were present.??No areas of purulence were identified throughout the wound. The wound measured 53cm length x15cm wide and 8cm deep with 12cm of posterior tunneling.??Two black sponges (one proximal and deep and one superficial) were placed. The vac held suction at the conclusion of the procedure at -125mmhg. ?? The patient tolerated the procedure well and was transferred to the recovery room in stable condition. The count at the end of the case was correct. .??Melinda??and Patti were present for all critical parts of the procedure.?? Surgical Infection Prevention Bundle Used? N/A Attestation: Case Date: 02/19/2022 I was present and I participated during the entire procedure (does not need to include opening and closing). FLORIDALMA SANDOVAL MD 02/20/2022 Plan of Care - Rhonda Coyle RN - 02/19/2022 5:37 AM EDT Outcome Evaluation Note: Outcome Summary: Pt A&Ox4, VSS on RA, afebrile. Pain controlled with PRN Oxy & sched Tylenol. WV on L leg intact, WV on L arm was reinforced, new mo pad placed. AUOP via urinal, flexiseal is draining stool. This RN noted L arm swelling, pt barely able to close hand, new onset to pt, strong radial pulse with doppler - MD made aware. Pt started on Heparin for DVT. 8,000 un Heparin bolus given, Heparin gtt started at 1,900 un. Heparin gtt was stopped at 0517 for OR. Pt remained NPO @ 0000 for OR. WCTM Plan Moving Forward: Pain control. NPO for OR. Heparin gtt. Individualized Fall Prevention Interventions: Patient-specific fall risk factors per assessment: [current deficits]: Lines & drains, impaired mobility, weakness, pain with narcotics. Assistance [level of assistance required for transfers and ambulation]: 2A with lift. Supervision [direct monitoring required during toileting and ADLs]: Hands on. Surveillance [continuous indirect monitoring]: Masimo, call starks within reach, purposeful hourly rounding, bed alarm, family presence. Patient-specific fall prevention interventions for sensory deficits provided, if applicable: Yes. CPG Goal Outcome Evaluation: Ongoing. Plan of Care - Beena Duffy RN - 02/18/2022 5:09 PM EDT OUTCOME EVALUATION NOTE: ?? OUTCOME SUMMARY: ?? BP and O2 sats stable on RA, patient tachy at baseline. Pain controlled with scheduled and PRN medications. In bed during shift, 2A w/ lift if needed. Worked with PT/OT with assistance from mobility check. Patient in seated position in the bed during all meals. WV on L leg and arm in place, functioning properly, - 125. Ayala removed mid-morning, low bladder scans, patient reminded to void. ?? PLAN MOVING FORWARD: ?? Monitor vitals Encourage ambulation Pain control ?? INDIVIDUALIZED FALL PREVENTION INTERVENTIONS: ?? Patient-specific fall risk factors per assessment: [current deficits]: Lines and drains, impaired mobility, weakness, narcotics, pain ?? Assistance [level of assistance required for transfers and ambulation]: 2A w/ lift ?? Supervision [direct monitoring required during toileting and ADLs]: Hands on ?? Surveillance [continuous indirect monitoring]: Room near RN station, call starks within reach, purposeful rounding ?? Patient-specific fall prevention interventions for sensory deficits provided, if applicable: [X] Yes ? CARE PLAN GOAL OUTCOME EVALUATION: ongoing Care Management - Lizzy Love RN - 02/18/2022 12:09 PM EDT OFFICE OF CARE MANAGEMENT PROGRESS NOTE LOS: Hospital Day 26 days Chart reviewed, care reviewed with primary team and at interdisciplinary rounds. Patient continues to meet inpatient level of care related to: OR tomorrow, Dialysis, dc ayala, question possible skin graft next week. Functional status prior to admission: Independent Home Environment: Others in the home: parent(s) (lives with dad). Current Living Arrangements: home/apartment/condo. Accessibility Concerns: 4 steps to enter the trailer. 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: Completely Dependent DME used at home: none Patient is insured through: Primary Insurance: P[place] MEDICAID Payor: PENDING MEDICAID / Plan: PENDING MEDICAID / Product Type: *No Product type* / Secondary Insurance: N/A Last Physical Therapy Recommendation: acute rehabilitation facility with to be determined Last Occupational Therapy Recommendation: acute rehabilitation facility with to be determined Plan for discharge is: Pending Hospital Course and PT/OT Recommendations Outpatient Agency/Support Group Needs: None Transportation: TBD Plan going forward: Care Management will continue to follow and assist with discharge planning and coordination of care as indicated. Anticipated Date of Discharge: 02/26/2022 Lizzy Love RN, BSN Case Management Plan of Care - Beena Duffy RN - 02/17/2022 4:45 PM EDT OUTCOME EVALUATION NOTE: OUTCOME SUMMARY: BP and O2 sats stable on RA, patient tachy at baseline. Pain controlled with scheduled and PRN medications. In bed during shift, 2A w/ lift if needed. Patient went to OR in the morning for WV change, then right to dialysis. Off the floor until approximately 1400. Tachcardic shortly after return, sustaiing in the 130-140's. MD at the bedside to assess. MD placed one time order of IV metoprolol. While preparing medication, HR began regulating. Per MD at the bedside, OK to hold metoprolol for time being. WV on L leg and arm in place, functioning properly, -125. PLAN MOVING FORWARD: Monitor vitals Encourage ambulation Pain control INDIVIDUALIZED FALL PREVENTION INTERVENTIONS: Patient-specific fall risk factors per assessment: [current deficits]: Lines and drains, impaired mobility, weakness, narcotics, pain Assistance [level of assistance required for transfers and ambulation]: 2A w/ lift Supervision [direct monitoring required during toileting and ADLs]: Hands on Surveillance [continuous indirect monitoring]: Room near RN station, call starks within reach, purposeful rounding Patient-specific fall prevention interventions for sensory deficits provided, if applicable: [X] Yes CARE PLAN GOAL OUTCOME EVALUATION: ongoing Brief Op Note - Jayme Armstrong MD - 02/17/2022 9:14 AM EDT Brief Operative Note Patient Name: Alix Holland : [id number] MR#: [id number] Case Date: 02/17/2022 Surgeon: Surgeon(s) and Role: * Jayme Armstrong MD - Primary * Veto Hidalgo MD - Resident * Collette Dye MD - Resident Preoperative diagnosis: LUE and LLE fasciotomies Postoperative diagnosis: LUE and LLE fasciotomies Procedure(s) (LRB): DEBRIDEMENT SKIN AND SUBCU, LOWER EXTREMITY (WRVU 1.01) (Left) DRESSING CHANGE (FOR OTHER THAN GALLOWAY) UNDER ANES., UPPER EXTREMITY (WRVU 0.86) (Left) MODIFIER WOUND VAC (N/A) Anesthesia: General Findings: LUE and LLE vac change, x4 horizontal mattress sutures with prolene placed at superior aspect of LLE wound to begin wound closure. Complications: n/a Estimated Blood Loss: 10 mL* No values recorded between 02/17/2022 8:03 AM and 02/17/2022 8:58 AM * Specimens removed during surgery: * No orders in the log * Fluids: Intraprocedure Crystalloid Total None PRBCs: none (See Anesthesia Record/Report for Other Blood Products) Urine Output: (no urine output recorded) Drains: x2 wound vacs Disposition: awakened from anesthesia, extubated and taken to the recovery room in a stable condition, having suffered no apparent untoward event. Condition: doing well without problems (Please see the Surgical Encounter Summary for any Implant and Specimen details pertinent to this patient.) Surgical Infection Prevention Bundle Used? N/A Attestation: Case Date: 02/17/2022 I was present and I participated during the entire procedure (does not need to include opening and closing). Jayme Armstrong MD 02/18/2022 Op Note - Jayme Armstrong MD - 02/17/2022 8:03 AM EDT [facility] [place] Patient Name: Alix Holland : [id number] MR#: [id number] Case Date: 02/17/2022 Surgeon: Surgeon(s) and Role: * Jayme Armstrong MD - Primary * Veto Hidalgo MD - Resident * Collette Dye MD - Resident Preoperative diagnosis: LUE and LLE fasciotomies Postoperative diagnosis: LUE and LLE fasciotomies Procedure(s) (LRB): DEBRIDEMENT SKIN AND SUBCU, LOWER EXTREMITY (WRVU 1.01) (Left) DRESSING CHANGE (FOR OTHER THAN GALLOWAY) UNDER ANES., UPPER EXTREMITY (WRVU 0.86) (Left) MODIFIER WOUND VAC (N/A) Findings: 1. Left forearm wound vac removed with one black sponge, measured 22 cm in length, 9 cm wide, 3mm deep with good granulation tissue, some exposed tendon, one black sponge placed 2. Left thigh wound vac removed with two sponges, the wound tunneled posteriorly, no further purulent pockets unroofed, wound measured 53cm length x15cm wide and 8cm deep with 12cm of posterior tunneling, wound vac replaced with two black sponges 3. Four horizontal mattress sutures placed at superior aspect of LLE wound Anesthesia: General Estimated Blood Loss: 10 mL Specimens removed during surgery: None Drains: wound vac x2 to -125 mmHg suction Surgical Closure: Other Than Primary Closure - deep and superficial layers are left completely open during original surgery Disposition: awakened from anesthesia, extubated and taken to the recovery room in a stable condition, having suffered no apparent untoward event. 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 He went to the OR??02/09, 02/11, 02/13, 02/15??for debridement and vac application??of LLE??wound and LUE vac placement. He is scheduled for planned washout and vac changes to his LUE and LLE wounds today. Procedure Description: The patient was brought to the operating room and placed in the supine position. Anesthesia was initiated and the patient was intubated.?The patient received??his scheduled antibiotics??for antibiotic prophylaxis. ??A surgical timeout was performed and all of the attendants in the operating room were in agreement to proceed. ?? The left upper extremity wound vac was removed (one black sponge).??Healthy granulation tissue was found in wound??with minimal dry flexor tendons. No significant exudates were present.??The wound measured 22 cm in length, 9 cm wide, 3mm deep. The wound vac was replaced using a single black sponge andheld suction at -125mmhg. ?? We then repositioned him in right lateral decubitus and removed two black sponges from the left lower extremity wound vac and prepped and draped the left lower extremity with betadine.??Healthy granulation tissue was found in wound with minimal dusky-appearing tissue.??No significant exudates were present. We probed deep in the wound where there had previously been a purulent pocket. There was no further purulence noted. The superior and lateral aspects of his wound were cultured. The wound was??bluntly debrided using a lap pad. The wound measured 53cm length x15cm wide and 8cm deep with 12cm of posterior tunneling.??Two black sponges (one superior and deep and one superficial and inferior) were placed. The vac held suction at the conclusion of the procedure at -125mmhg. Four horizontal mattress sutures were placed at superior aspect of LLE wound. ?? The patient tolerated the procedure well and was transferred to the recovery room in stable condition. The count at the end of the case was correct. ??Patti??was present/available??for the entireprocedure. Surgical Infection Prevention Bundle Used? N/A Attestation: Case Date: 02/17/2022 I was present and I participated during the entire procedure (does not need to include opening and closing). Jayme Armstrong MD 02/18/2022 Plan of Care - Brittney Ann RN - 02/17/2022 6:19 AM EDT OUTCOME EVALUATION NOTE: OUTCOME SUMMARY: Pt A&Ox4 throughout shift. Pt tolerating regular to NPO @ MN diet w/out complaints of N/V. Pt receiving KVO with abx admin via purple port of TL IJ, tolerating well. Pt did not get OOB via Lift. Ptw/Wound Vac x 2, tolerating w/complaints of pain relieved with prn oxycodone 15mg. Pt voiding QS viaurinal, no c/o pain. Pt continues with BS Q8hrs. Pt has stool noted in flexiseal over this shift, some leakage noted around flexi at beginning of shift. Pt able to rest between care. Bed Alarm activated for safety. PLAN MOVING FORWARD: Monitor Pain, Monitor I&O, Encourage Ambulation, Monitor PO tolerance, Maintain Safety, Discharge Planning INDIVIDUALIZED FALL PREVENTION INTERVENTIONS: Patient-specific fall risk factors per assessment: [current deficits]: Narcotics, History of falls, Needs assistance getting out of bed or chair, Pain with movement/ambulation. Assistance [level of assistance required for transfers and ambulation]: Non-skid shoes/slippers, 2 person max lift assist Supervision [direct monitoring required during toileting and ADLs]: Hands on Surveillance [continuous indirect monitoring]: Purposeful rounding, Call starks in reach, Bed alarm, Direct observation Patient-specific fall prevention interventions for sensory deficits provided, if applicable: [X] YesLight adjusted for task/safety CPG GOAL OUTCOME EVALUATION: Care Management - Lizzy Love RN - 02/16/2022 1:24 PM EDT OFFICE OF CARE MANAGEMENT PROGRESS NOTE LOS: Hospital Day 24 days Chart reviewed, care reviewed with primary team and at interdisciplinary rounds. Patient continues to meet inpatient level of care related to: Going to OR tomorrow. Asked GUEVARA Huff to look into [facility] to determine any other information they need. Patient is pending Medicaid. Functional status prior to admission: Independent Home Environment: Others in the home: parent(s) (lives with dad). Current Living Arrangements: home/apartment/condo. Accessibility Concerns: 4 steps to enter the trailer. 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: Completely Dependent DME used at home: none Patient is insured through: Primary Insurance: PENDING MEDICAID Payor: PENDING MEDICAID / Plan: PENDING MEDICAID / Product Type: *No Product type* / Secondary Insurance: N/A Last Physical Therapy Recommendation: acute rehabilitation facility with to be determined Last Occupational Therapy Recommendation: acute rehabilitation facility with to be determined Plan for discharge is: Pending Hospital Course and PT/OT Recommendations Outpatient Agency/Support Group Needs: None Transportation: TBD Plan going forward: Care Management will continue to follow and assist with discharge planning and coordination of care as indicated. Anticipated Date of Discharge: 02/26/2022 Lizzy Love RN, BSN Case Management Plan of Care - Geoffrey Hunt RN - 02/15/2022 8:00 PM EDT OUTCOME EVALUATION NOTE: OUTCOME SUMMARY: Pt A&Ox4. Slow to respond w/flat affect. PERRLA. Pt left the floor around 0730ish to the OR for WV changes in LUE and LLE. After WV changes pt but went directly to dialysis. Pt had 3.2L off in dialysis. Pt returned around 1548 to the floor. Pt c/o pain 10/10; given PO oxycodone at 1618 and IV dilaudid at 1806. Pt LUE WV mo pad came out while pt being transferred; new mo pad placed and dressing reinforced w/tegaderm-currently WV is working and suction is at 125mmhg-MD aware. LLE WV CDI-suction at 125mmhg. Pt BS for 505ml at 1636; pt unable to void. MD notified. Pt does not want straight cathat this time; is continuing to attempt to void-oncoming nurse and MD aware. Denies SOB-no cough. Lungs clear. Tachy at times in low hundreds which is unchanged-other VSS. C/o numbness/tingling in LUE and LLE. Pulses intact. LUE +2 edema. LLE +2 edema. RLE +2 edema. Incontinent of stool-flexiseal intact and milked as needed. C.diff soap and water precautions maintained. Dialysis MWF. Hand-off report given. PLAN MOVING FORWARD: ?? MWF dialysis. Frequent checks/turns. Pain control. IV and PO abx. ?? INDIVIDUALIZED FALL PREVENTION INTERVENTIONS: ?? Patient-specific fall risk factors per assessment: [current deficits]: Flat affect. Drowsy/lethargicat times. WVx2. ?? Assistance [level of assistance required for transfers and ambulation]: Dependent ?? Supervision [direct monitoring required during toileting and ADLs]: Dependent ?? Surveillance [continuous indirect monitoring]: Masimo ?? Patient-specific fall prevention interventions for sensory deficits provided, if applicable: [X] Yesbed alarm on; room near nurse's station; frequent checks ? CARE PLAN GOAL OUTCOME EVALUATION: ?? Op Note - Jayme Armstrong MD - 02/15/2022 2:08 PM EDT [facility] [place] Patient Name: Alix Holland : [id number] MR#: [id number] Case Date: 02/15/2022 Surgeon: Surgeon(s) and Role: * Jayme Armstrong MD - Primary * Veto Hidalgo MD - Resident * Collette Dye MD - Resident Preoperative diagnosis: compartment syndrome LLE, LUE wound Postoperative diagnosis: compartment syndrome LLE, Procedure(s) (LRB): DEBRIDEMENT SKIN AND SUBCU, LOWER EXTREMITY (WRVU 1.01) (Left) MODIFIER WOUND VAC (N/A) DEBRIDEMENT SKIN, SUBCU, MUSCLE, UPPER EXTREMITY (WRVU 2.7) (Left) Findings: 1. Left forearm wound vac removed with one black sponge, measured 22.5cm in length, 9.5cm wide, 3mm deep with good granulation tissue, one black sponge placed 2. Left thigh wound vac removed with two sponges, the wound tunneled posteriorly and purulent pocketunroofed and cultured, wound measured 55cm length x18cm wide and 8cm deep with 12cm of posterior tunneling, wound vac replaced with two black sponges Anesthesia: General Estimated Blood Loss: 5 mL Specimens removed during surgery: None Drains: wound vac x2 to -125mmhg Surgical Closure: Other Than Primary Closure - deep and superficial layers are left completely open during original surgery Disposition: awakened from anesthesia, extubated and taken to the recovery room in a stable condition, having suffered no apparent untoward event. 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 He went to the OR??02/09, 02/11, 02/13??for debridement and vac application??of LLE??wound. He is scheduled for planned washout and vac changes to his LUE and LLE wounds today. Procedure Description: The patient was brought to the operating room and placed in the supine position. Anesthesia was initiated and the patient was intubated. The patient received his scheduled antibiotics for antibiotic prophylaxis. A surgical timeout was performed and all of the attendants in the operating room were in agreement to proceed. ?? The left upper extremity wound vac was removed (one black sponge). Healthy granulation tissue was found in wound??with minimal dry flexor tendons. No significant exudates were present.??The wound measured 22.5cm in length, 9.5cm wide, 3mm deep. The wound vac was replaced using a single black sponge and held suction at -125mmhg. ?? We then repositioned him in right lateral decubitus and removed two black sponges from the left lower extremity wound vac and prepped and draped the left lower extremity with betadine. Healthy granulation tissue was found in wound with minimal dusky-appearing tissue.??No significant exudates were present. We probed deep in the wound where there was a pocket of more purulent material, this was cultured. We then removed the remaining [place]. The wound was irrigated and measured wound measured 55cm length x18cm wide and 8cm deep with 12cm of posterior tunneling. Two black sponges (one superior and deep and one superficial and inferior) were placed. The vac held suction at the conclusion of the procedure at -125mmhg. The sutures in his left forearm and left lower extremity were removed and replaced with steri strips. ?? The patient tolerated the procedure well and was transferred to the recovery room in stable condition. The count at the end of the case was correct. Dr. Armstrong was present/available for the entire procedure. Surgical Infection Prevention Bundle Used? N/A Attestation: Case Date: 02/15/2022 I was present and I participated during the entire procedure (does not need to include opening and closing). Jayme Armstrong MD 02/16/2022 Plan of Care - Geoffrey Hunt RN - 02/14/2022 6:36 PM EDT OUTCOME EVALUATION NOTE: OUTCOME SUMMARY: Pt A&Ox4. Slow to respond w/flat affect. PERRLA. Pain 9-10/10 throughout the shift. PRN oxycodone and IV dilaudid given. Pt occasionally too lethargic to give PRN pain meds safely d/t falling asleep during conversations-when this occurs pain meds held until pt able to stay awake for conversations to ensure safety-this explained to pt. Pt sats remain WNL and RR remains normal. Denies SOB-no cough.Lungs clear. Tachy at times in low hundreds which is unchanged- other VSS. C/o numbness/tingling in LUE and LLE. Pulses intact. Q.4 Neurovasc checks. LUE +2 edema. LLE +3 edema. RLE +2 edema. Incontinent of stool-flexiseal intact and milked as needed. C.diff soap and water precautions maintained. Frequent checks/turns. Miconazole cream to redness in groin, scrotum, and anus. Anuric. Dialysis MWF. Wound vac and dressings to LUE and LLE CDI-WVs to 125mmhg. VSS. WCTM. 1900: Pt BS for >999ml-MD notified-new straight cath order in-pt declined and is currently attempting to void-oncoming nurse aware PLAN MOVING FORWARD: MWF dialysis. NPO at midnight for WV changes in the morning. Frequent checks/turns. Pain control. IVand PO abx. INDIVIDUALIZED FALL PREVENTION INTERVENTIONS: Patient-specific fall risk factors per assessment: [current deficits]: Flat affect. Drowsy/lethargicat times. WVx2. Assistance [level of assistance required for transfers and ambulation]: Dependent Supervision [direct monitoring required during toileting and ADLs]: Dependent Surveillance [continuous indirect monitoring]: Masimo Patient-specific fall prevention interventions for sensory deficits provided, if applicable: [X] Yesbed alarm on; room near nurse's station; frequent checks CARE PLAN GOAL OUTCOME EVALUATION: Plan of Care - Betzaida Francois RN - 02/14/2022 3:00 AM EDT Temp: [36.5 ??C (97.7 ??F)-37.4 ??C (99.32 ??F)] Heart Rate: [84-112] Resp: [11-20] BP: (125-137)/(89-95) OUTCOME EVALUATION NOTE: OUTCOME SUMMARY: ?? Pt AxO, VSS on RA. Denies SOB and dyspnea. Pt c/o back and generalized Pain. Pain managed with Oxycodone and dilaudid iv.Wound vac change done yesterday.Left arm, scrotum, and bilateral legs with +3 edema. Brown liquid BM, flexiseal intact and bag changed this shift. PLAN MOVING FORWARD: Monitor I&O, Pain management.Dialysis MWF. CPG GOAL OUTCOME EVALUATION: Ongoing Consult Note - Maureen Ames [facility] - 02/13/2022 12:17 PM EDT Clinical Pharmacist Note - Renal Dose Adjustment for Antimicrobials Alix Holland (A# [id number]) is being treated with the following antimicrobial agent(s) which require dose adjustment based on current renal function: 1. Cefepime 2 grams IV every 8 hours The indication for antimicrobial treatment is: SSTI Pharmacokinetic information: Height: Ht Readings from Last 1 Encounters: 02/05/22 182.9 cm (6' 0.01) Weight: Wt Readings from Last 1 Encounters: 02/09/22 104.3 kg (229 lb 15 oz) Body mass index is 31.18 kg/m??. Estimated Creatinine Clearance: 47.3 mL/min (A) (based on SCr of 2.85 mg/dL (H)). Recent Labs 02/13/22 0020 02/12/22 0030 02/11/22 0037 CREATININE 2.85* 3.74* 2.42* BUN 30* 39* 23* I/O Yesterday: 02/12 0701 - 02/13 0700 In: 1800 [P.O.:1150] Out: 3911 Recommendations: Based on current renal function assessment, the following change(s) have been made to the patient's antimicrobial regimen: 1. For hemodialysis patients, dose cefepime at 1 gram IV every 24 hours, insuring that they receive their dose after HD on HD days We will continue to monitor the patient???s renal function and adjust antimicrobial dosing as needed. Please page the care area pharmacist with any questions you may have. Per P&T approved Renal Dose Adjustment Policy MAUREEN AMES RPH Op Note - Jeanette Chatterjee MD - 02/13/2022 9:52 AM EDT [facility] [facility] [place] Patient Name: Alix Holland : [id number] MR#: [id number] Case Date: 02/13/2022 Surgeon: Surgeon(s) and Role: * Jeanette Chatterjee MD - Primary * Veto Hidalgo MD - Resident Preoperative diagnosis: LUE and LLE fasciotomies Postoperative diagnosis: LUE and LLE fasciotomies Procedure(s) (LRB): DEBRIDEMENT SKIN AND SUBCU, LOWER EXTREMITY (WRVU 1.01) (Left) DRESSING CHANGE (FOR OTHER THAN GALLOWAY) UNDER ANES., UPPER EXTREMITY (WRVU 0.86) (Left) MODIFIER WOUND VAC (Left) Findings: LUE and LLE fasciotomy wounds with healthy bleeding granulating tissue. One black sponge retrieved from LUE wound (26 cm x 15 cm x 1 cm deep), and two black sponge retrieved from LLE wound (46 cm??in length??x 16 cm wide??x 6 cm deep). Anesthesia: General Estimated Blood Loss: 5cc Specimens removed during surgery: None Drains: wound vac -125mmhg x2 Surgical Closure: Other Than Primary Closure - deep and superficial layers are left completely open during original surgery Disposition: awakened from anesthesia, extubated and taken to the recovery room in a stable condition, having suffered no apparent untoward event. Condition: doing well without problems (Please see the Surgical Encounter Summary for any Implant and Specimen details pertinent to this patient.) HPI/Surgical Indications: Alix Holland??is a??31 yo male with LLE and and LUE wounds after fasciotomies performed by Orthopedics. He developed bleeding from the left thigh wound on 02/06 and underwent embolization of superior gluteal artery pseudoaneurysm by IR and washout and packing of the thigh wound by General Surgery. He went to the OR 02/09 and 02/11 for debridement and vac application of LLE wound. He is scheduled for planned washout and vac changes to his LUE and LLE wounds today. Procedure Description: The patient was brought to the operating room and placed in the supine position on his bed. Anesthesia was initiated and the patient was intubated. A bump was placed under the left leg. The patient received his scheduled antibiotics for antibiotic prophylaxis. A surgical timeout was performed and all of the attendants in the operating room were in agreement to proceed. The left upper extremity wound vac was removed (one black sponge). Healthy granulation tissue was found in wound with minimal dry flexor tendons. No significant exudates were present. The wound measured 26 cm x 15 cm x 1 cm deep. The wound vac was replaced using a single black sponge and held suction at -125mmhg. We then removed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 Problems Diagnosis ??? Angioedema ??? Chest pain ??? Smoker ??? Mandible fracture FAMILY HISTORY: Negative for bleeding/clotting disorders or anesthetic complications. SOCIAL HISTORY: Social History Tobacco Use Smoking Status Current Every Day Smoker ??? Packs/day: 0.50 ??? Types: Cigarettes Smokeless Tobacco Never Used Social History Substance and Sexual Activity Alcohol Use Yes Comment: 30 beers/day MEDICATIONS: ??? glucose (Glutose) 40% oral geL OR dextrose 10% infusion OR glucagon (Glucagen) (1 mg/mL)injection solution 1 mg ??? insulin lispro (HumaLOG;Admelog) (100 unit/mL) subcutaneous injection vial 2-8 Units ??? chlorhexidine (Peridex) 0.12 % oral solution 15 mL ??? pantoprazole (Protonix) injection 40 mg ??? heparin (porcine) (5,000 units/1 mL) subcutaneous injection 5,000 Units ??? NORepinephrine (Levophed) (16 mcg/mL) in dextrose 5% 250 mL infusion ??? vasopressin (Vasostrict) (0.2 units/mL) 100 mL infusion ??? fentaNYL (PF) (50 mcg/mL) infusion syringe 50 mL AND [COMPLETED] fentaNYL (50 mcg/mL) bolus from infusion 25 mcg AND fentaNYL (50 mcg/mL) bolus from infusion 25-100 mcg AND fentaNYL shift total and Settings verification AND Assess ??? propofoL (Diprivan) (10 mg/mL) infusion AND propofoL (Diprivan) (10 mg/mL) bolus from infusion 10 mg ??? vancomycin- intermittent dosing per levels ??? [COMPLETED] acetylcysteine (Acetadote) 15,000 mg in dextrose 5% 200 mL infusion (Loading Dose) FOLLOWED BY acetylcysteine (Acetadote) 5,000 mg in dextrose 5% 500 mL infusion (Second Dose) FOLLOWED BY acetylcysteine (Acetadote) 10,000 mg in dextrose 5% 1,000 mL infusion (Third Dose) ??? lactated ringers infusion ??? lactated Ringers 1,000 mL IV bolus ??? insulin regular human 10 Units in dextrose 10% 500 mL infusion AND POCT Fingerstick Glucose ??? calcium gluconate 1g in sodium chloride 0.9% 50mL ??? NORepinephrine 8 mcg/min (01/23/22 0139) ??? vasopressin Stopped (01/23/22129) ??? fentaNYL 50 mcg/hr (01/23/22 0144) ??? propofoL 20 mcg/kg/min (01/23/22129) ??? lactated Ringers 250 mL/hr (01/23/22 0237) OBJECTIVE: Temp: [37.2 ??C (99 ??F)-38.2 ??C (100.8 ??F)] Heart Rate: [143-152] Resp: [17-34] BP: (106-152)/(74-84) Intake/Output Summary (Last 24 hours) at 01/23/2022 0611 Last data filed at 01/23/2022 0458 Gross per 24 hour Intake 4290 ml Output -- Net 4290 ml Body mass index is 30.44 kg/m??. PHYSICAL EXAM: Gen: Intubated and sedated HEENT: NC, AT CV: RRR assessed peripherally Pulm: Mechanically ventialted Left Upper Extremity Exam: Full but compressible anterior and posterior compartments. Mobile wad is soft and compressible. Bleeding at sites of prior vascular access Motor / sensory exam not possible due to patient condition Radial Doppler signal. No palpable pulse. LABS: Lab Results Component Value Date NA 142 01/23/2022 K 6.6 (CRIT) 01/23/2022 CL 102 01/23/2022 CO2 17 (L) 01/23/2022 BUN 47 (H) 01/23/2022 CREATININE 4.42 (H) 01/23/2022 GLUCOSE 143 01/23/2022 GLUCFASTING 151 (H) 04/26/2021 CALCIUM 5.8 (CRIT) 01/23/2022 Lab Results Component Value Date WBC 12.1 (H) 01/23/2022 HGB 17.6 (H) 01/23/2022 HCT 50.3 (H) 01/23/2022 MCV 91.6 01/23/2022 PLATELET 184 01/23/2022 Lab Results Component Value Date INR 1.3 01/23/2022 Lab Results Component Value Date CRP <3.0 04/26/2021 IMAGING: Personal review of imaging demonstrates no fracture or dislocation of LUE. Moderate soft tissue swelling. ASSESSMENT/RECOMMENDATIONS: 31 y.o. male who presents with signs and measured Cyndi compartment pressures concerning for compartment syndrome ( dorsal compartment with 58 mmHg, volar compartment with64 mmHg, mobile wad with 12 mmHg, diastolic 67). Plan to proceed to OR for fasciotomies, I+D, vac. I have contacted the referring team and discussed our evaluation and recommendations as listed above. The orthopaedic service will continue to follow this patient. Thank you for the opportunity to assist in their evaluation and treatment. Please page Orthopaedic consults ([phone]) with any questions or co ncerns. ?? Tanya Hernandez MD P. [phone] 01/23/22 6:11 AM No future appointments. Associated attestation - Sigifredo Garcia MD - 01/23/2022 4:06 PM EDT I have seen and examined the patient and reviewed the attached history/physical and all imaging and I agree with the details as written. The assessment and plan were formulated in discussion with me and I agree with them as documented, with the following additions or alterations: 31 y.o. male with history of HTN, polysubstance abuse, COVID+ who was found down by his father afterfentanyl overdose. He was taken to [facility] where he had a cardiac arrest, ROSC, and he was intubated and sedated. [place] [facility] [place] Labs showed he had hyperkalemia, acidosis, ALTHEA. There was concern for a swollen left forearm so orthopedics was consulted. On exam his forearm was firm, but exam was limited due to patient's mental status. Therefore cyndi pressure monitor was used to measure the compartment pressures in his left volar and dorsal forearm and mobile wad which measured 62, 61, and 11 respectively. On exam he also had swelling and firm muscle compartments in his left buttock, thigh, and lateral lower leg. Compartment pressure measurements showed: Buttock: 62, Anterior thigh: 57, Medial thigh: 18, Lower leg: Anterior: 32, Lateral: 100, Superficial posterior: 24. Based on these findings, he had elevated pressures in several of his muscle compartments to warrant emergent fasciotomies. It was discussed with the patients sister to go to the operating room emergently for fasciotomies of his left forearm, thigh, buttock, and lower leg. Risk benefits and alternatives of surgical and nonsurgical management were discussed. Risks include but are not limited to pain ,bleeding, infection, failure to heal, need for further surgery, damage to surrounding structures, deep vein thrombosis, pulmonary embolism, and . She understood the risks and consented to proceed. Plan: Emergent fasciotomies of the left forearm, carpal tunnel, buttock, thigh, and lower leg. Sigifredo Garcia MD Department of Orthopaedics 01/23/2022 documented in this encounter Plan of Treatment Upcoming Encounters Date Type Specialty Care Team Description 06/09/2022 Procedure visit Neurology Summer Wiggins MD [facility]UR[facility] [place], [place] [address] (Wo ) Pending Results Name Type Priority Associated Diagnoses Date/Ti me Transfuse thawed Blood Bank STAT 02/05/2022 11:57 PM plasma EDT Transfuse thawed Blood Bank STAT 02/06/2022 12:09 AM plasma EDT Transfuse thawed Blood Bank STAT 02/06/2022 12:23 AM plasma EDT Transfuse RBC Blood Bank Routine 02/07/2022 8:1 0 PM EDT Transfuse RBC Blood Bank Routine 02/07/2022 8:0 0 PM EDT Transfuse RBC Blood Bank Routine 02/12/2022 11: 19 AM EDT Transfuse RBC Blood Bank Routine 02/12/2022 11: 16 AM EDT Scheduled Orders Name Type Priority Associated Diagnoses Order S chedule SURGICAL CASE REQUEST: Procedures Routine One T ibeth for 1 APPL SKIN SUB GRAFT Occurren hung starting HANDS, TO 100 SQ CM; 022 until 1ST 25 SQ CM WOUND 2 AREA (WRVU 1.83) Nerve conduction test Neurology Routine Numbness and tingli ng Expected: 04/22/2022, of left lower Expires: 10/22 extremity Scheduled Procedures Name Priority Associated Diagnoses Date/Time APPL SKIN SUB GRAFT HANDS, TO 100 SQ CM; Left ar m fasciotomy wound 1ST 25 SQ CM WOUND AREA (WRVU 1.83) Scheduled Referrals Name Type Priority Associated Diagnoses Order S chedule Referral to Outpatient Referral Routine Numbness and Ordered: Neurology tingling of left 03/22/2022 lower extremity documented as of this encounter Procedures Procedure Name Priority Date/Time Associated Diagnosis Comme nts HEMOGRAM Routine 03/23/2022 4:35 Results for this AM EDT procedure are i n the results section. DIFFERENTIAL, Routine 03/23/2022 4:35 Results for this AUTOMATED AM EDT procedure are i n the results section. HC CBC,PLT & AUTO DIFF Routine 03/23/2022 4:35 AM EDT BASIC METABOLIC PANEL Routine 03/23/2022 3:00 Res ults for this (NON-FASTING) AM EDT procedure are in the results section. HEMOGRAM Timed 03/22/2022 4:15 Results for this AM EDT procedure are i n the results section. DIFFERENTIAL, Timed 03/22/2022 4:15 Results for this AUTOMATED AM EDT procedure are i n the results section. HC CBC,PLT & AUTO DIFF Timed 03/22/2022 4:15 AM EDT BASIC METABOLIC PANEL Routine 03/22/2022 4:15 Res ults for this (NON-FASTING) AM EDT procedure are in the results section. GREEN TUBE HOLD Routine 03/20/2022 12:27 Results for this PM EDT procedure are i n the results section. BASIC METABOLIC PANEL Routine 03/20/2022 12:27 Re sults for this (NON-FASTING) PM EDT procedure are in the results section. HC PHOSPHORUS, SERUM Routine 03/20/2022 12:00 Res ults for this PM EDT procedure are i n the results section. HC MAGNESIUM, SERUM Routine 03/20/2022 12:00 Resu lts for this PM EDT procedure are i n the results section. DRESSING CHANGE (FOR Routine 03/15/2022 6:23 OTHER [...] i n the results section. DIFFERENTIAL, STAT 03/13/2022 6:02 Results for this AUTOMATED AM EDT procedure are i n the results section. HC CBC,PLT & AUTO DIFF STAT 03/13/2022 6:02 AM EDT HC PHOSPHORUS, SERUM STAT 03/13/2022 6:02 Resu lts for this AM EDT procedure are i n the results section. HC MAGNESIUM, SERUM STAT 03/13/2022 6:02 Resul ts for this AM EDT procedure are i n the results section. BASIC METABOLIC PANEL STAT 03/13/2022 6:02 Res ults for this (NON-FASTING) AM EDT procedure are in the results section. DRESSING CHANGE (FOR Routine 03/12/2022 3:19 OTHER THAN GALLOWAY) PM EDT UNDER ANES., LOWER EXTREMITY DRESSING CHANGE (FOR Routine 03/12/2022 3:19 OTHER THAN GALLOWAY) PM EDT UNDER ANES., UPPER EXTREMITY APPL SKIN SUB GRAFT TO Routine 03/10/2022 8:17 LEGS, TO 100 SQ CM; EA AM EDT ADD'L 25 SQ CM AREA APPL SKIN SUB GRAFT TO Routine 03/10/2022 8:17 ARMS, TO 100 SQ CM; EA AM EDT ADD'L 25 SQ CM AREA HEMOGRAM Routine 03/10/2022 5:45 Results for this AM EDT procedure are i n the results section. DIFFERENTIAL, Routine 03/10/2022 5:45 Results for this [...] FLUID CULTURE Routine 03/05/2022 11:05 AM EDT BODY FLUID CULTURE, Routine 03/05/2022 11:05 Resu lts for this AEROBIC AM EDT procedure are i n the results section. BASIC METABOLIC PANEL Routine 03/04/2022 12:54 Re sults for this (NON-FASTING) AM EDT procedure are in the results section. DRESSING CHANGE (VAC Routine 03/03/2022 7:00 ASSISTED) UP TO PM EDT 50SQ.CM PLACE PICC LINE: Routine 03/03/2022 2:46 Results for this CONTACT VASCULAR PM EDT procedure a re in ACCESS the results section. XR PICC PLACEMENT OVER Routine 03/03/2022 2:31 Re sults for this 5 YEARS (IV TEAM) PM EDT procedure are in the results section. HEMOGRAM Routine 03/03/2022 4:34 Results for this AM EDT procedure are i n the results section. DIFFERENTIAL, Routine 03/03/2022 4:34 Results for this AUTOMATED AM EDT procedure are i n the results section. HC CBC,PLT & AUTO DIFF Routine 03/03/2022 4:34 AM EDT HC PHOSPHORUS, SERUM Routine 03/03/2022 4:34 Resu lts for this AM EDT procedure are i n the results section. HC MAGNESIUM, SERUM Routine 03/03/2022 4:34 Resul [...] in the results section. DRESSING CHANGE (FOR Routine 03/01/2022 1:27 OTHER THAN GALLOWAY) PM EDT UNDER ANES., LOWER EXTREMITY DRESSING CHANGE (FOR Routine 03/01/2022 1:27 OTHER THAN GALLOWAY) PM EDT UNDER ANES., UPPER EXTREMITY HEMOGRAM Routine 03/01/2022 2:00 Results for this AM EDT procedure are i n the results section. DIFFERENTIAL, Routine 03/01/2022 2:00 Results for this AUTOMATED AM EDT procedure are i n the results section. HC IRON BINDING Routine 03/01/2022 2:00 Results f or this CAPACITY AM EDT procedure are i n the results section. HC CBC,PLT & AUTO DIFF Routine 03/01/2022 2:00 AM EDT HC PHOSPHORUS, SERUM Routine 03/01/2022 2:00 Resu lts for this AM EDT procedure are i n the results section. HC MAGNESIUM, SERUM Routine 03/01/2022 2:00 Resul ts for this AM EDT procedure are i n the results section. HC FERRITIN, SERUM Timed 03/01/2022 2:00 Result s for this AM EDT procedure are i n the results section. BASIC METABOLIC PANEL Routine 03/01/2022 2:00 Res ults for this (NON-FASTING) AM EDT procedure are in the results section. BASIC METABOLIC PANEL Routine 02/28/2022 3:43 Res ults for this (NON-FASTING) AM EDT procedure are in the results section. HEMOGRAM Routine 02/27/2022 4:36 Results for this AM EDT procedure are i n the results section. DIFFERENTIAL, Routine 02/27/2022 4:36 Results for this AUTOMATED AM EDT procedure are i n the results section. HC CBC,PLT & AUTO DIFF Routine 02/27/2022 4:36 AM EDT HC PHOSPHORUS, SERUM Routine 02/27/2022 4:36 Resu lts for this AM EDT procedure are i n the results section. HC MAGNESIUM, SERUM Routine 02/27/2022 4:36 Resul ts for this AM EDT procedure are i n the results section. BASIC METABOLIC PANEL Routine 02/27/2022 4:36 Res ults for this (NON-FASTING) AM EDT procedure are in the results section. DEBRIDEMENT SKIN, Routine 02/26/2022 9:46 SUBCU, MUSCLE, UPPER AM EDT EXTREMITY DRESSING CHANGE (FOR Routine 02/26/2022 6:38 [...] DIFF Routine 02/25/2022 5:30 AM EDT HC PHOSPHORUS, SERUM Routine 02/25/2022 5:30 Resu lts for this AM EDT procedure are i n the results section. HC MAGNESIUM, SERUM Routine 02/25/2022 5:30 Resul ts for this AM EDT procedure are i n the results section. BASIC METABOLIC PANEL Routine 02/25/2022 5:30 Res ults for this (NON-FASTING) AM EDT procedure are in the results section. DRESSING CHANGE (FOR Routine 02/24/2022 8:27 OTHER THAN GALLOWAY) AM EDT UNDER ANES., UPPER EXTREMITY DEBRIDEMENT SKIN, Routine 02/24/2022 8:27 SUBCU, MUSCLE, LOWER AM EDT EXTREMITY BASIC METABOLIC PANEL Routine 02/24/2022 5:45 Res ults for this (NON-FASTING) AM EDT procedure are in the results section. LAB SCAN 02/24/2022 12:00 AM EDT HEMOGRAM Routine 02/23/2022 5:00 Results for this AM EDT procedure are i n the results section. DIFFERENTIAL, Routine 02/23/2022 5:00 Results for this [...] in the results section. DRESSING CHANGE (FOR 02/22/2022 7:38 soft tissue [...] 6:12 SUBCU, MUSCLE, LOWER AM EDT EXTREMITY HEMOGRAM Routine 02/22/2022 1:08 Results for this AM EDT procedure are i n the results section. DIFFERENTIAL, Routine 02/22/2022 1:08 Results for this [...] EDT procedure are in the results section. HEMOGRAM Routine 02/20/2022 4:45 [...] EDT procedure are in the results section. DUPLEX FOR DVT, ARM, Routine 02/19/2022 3:45 Nontraumatic Resu lts for this UNILAT PM EDT compartment syndrome procedu re are in of left upper the results extremity section. ANAEROBIC CULTURE Routine 02/19/2022 9:45 Results for this AM EDT procedure are i n the results section. HC WOUND/ABSCESS CX Routine 02/19/2022 9:45 AM EDT ABSCESS/WOUND ASPIRATE Routine 02/19/2022 9:45 Re sults for this CULTURE AM EDT procedure are i n the results section. DRESSING CHANGE (FOR Routine 02/19/2022 7:11 OTHER THAN GALLOWAY) AM EDT UNDER ANES., UPPER EXTREMITY DEBRIDEMENT SKIN, Routine 02/19/2022 7:11 SUBCU, MUSCLE, LOWER AM EDT EXTREMITY HEMOGRAM Routine 02/19/2022 12:27 Results for this AM EDT procedure are i n the results section. DIFFERENTIAL, Routine 02/19/2022 12:27 Results fo r this AUTOMATED AM EDT procedure are i n the results section. VITAMIN D, 25-HYDROXY Routine 02/19/2022 12:27 Re sults for this AM EDT procedure are i n the results section. HC HEPATITIS B SURFACE Routine 02/19/2022 12:27 R esults for this AG AM EDT procedure are i n the results section. HC CBC,PLT & AUTO DIFF Routine 02/19/2022 12:27 AM EDT HC PHOSPHORUS, SERUM Routine 02/19/2022 12:27 Res ults for this AM EDT procedure are i n the results section. HC MAGNESIUM, SERUM Routine 02/19/2022 12:27 Resu lts for this AM EDT procedure are i n the results section. FERRITIN Routine 02/19/2022 12:27 Results for this AM EDT procedure are i n the results section. BASIC METABOLIC PANEL Routine 02/19/2022 12:27 Re sults for this (NON-FASTING) AM EDT procedure are in the results section. SCAN, PERIPHERAL BLOOD Routine [...] in the results section. ANAEROBIC CULTURE Routine 02/17/2022 8:35 Results for this AM EDT procedure are i n the results section. ANAEROBIC CULTURE Routine 02/17/2022 8:35 Results for this AM EDT procedure are i n the results section. HC WOUND/ABSCESS CX Routine 02/17/2022 8:35 AM EDT HC WOUND/ABSCESS CX Routine 02/17/2022 8:35 AM EDT ABSCESS/WOUND ASPIRATE Routine 02/17/2022 8:35 Re sults for this CULTURE AM EDT procedure are i n the results section. ABSCESS/WOUND ASPIRATE Routine 02/17/2022 8:35 Re sults for this CULTURE AM EDT procedure are i n the results section. DRESSING CHANGE (FOR Routine 02/17/2022 6:16 OTHER THAN GALLOWAY) AM EDT UNDER ANES., UPPER EXTREMITY DEBRIDEMENT SKIN AND Routine 02/17/2022 6:16 SUBCU, LOWER EXTREMITY AM EDT HEMOGRAM Routine 02/17/2022 3:40 Results for this AM EDT procedure are i n the results section. DIFFERENTIAL, Routine 02/17/2022 3:40 Results for this [...] EDT procedure are in the results section. HEMOGRAM Routine 02/16/2022 4:05 [...] in the results section. ANAEROBIC CULTURE Routine 02/15/2022 9:06 Results for this AM EDT procedure are i n the results section. HC WOUND/ABSCESS CX Routine 02/15/2022 9:06 AM EDT ABSCESS/WOUND ASPIRATE Routine 02/15/2022 9:06 Re sults for this CULTURE AM EDT procedure are i n the results section. DEBRIDEMENT SKIN, Routine 02/15/2022 6:14 SUBCU, MUSCLE, UPPER AM EDT EXTREMITY DEBRIDEMENT SKIN AND Routine 02/15/2022 6:14 SUBCU, LOWER EXTREMITY AM EDT HEMOGRAM Routine 02/15/2022 3:50 Results for this AM EDT procedure are i n the results section. DIFFERENTIAL, Routine 02/15/2022 3:50 Results for this [...] EDT procedure are in the results section. SCAN, PERIPHERAL BLOOD Routine [...] procedure are in the results section. CT FEMUR W CONTRAST STAT 02/13/2022 3:36 Resul ts for this LEFT PM EDT procedure are i n the results section. CT ABDOMEN AND PELVIS STAT 02/13/2022 3:36 Res ults for this W CONTRAST PM EDT procedure are i n the results section. XR ABDOMEN 1 VIEW Routine 02/13/2022 8:10 [...] procedure are in the results section. HC SODIUM Timed 02/12/2022 [...] DIFF Routine 02/12/2022 12:30 AM EDT HC PREALBUMIN, SERUM Routine 02/12/2022 12:30 Res ults for this AM EDT procedure are i n the results section. HC PHOSPHORUS, SERUM Routine 02/12/2022 12:30 Res [...] are in the results section. LAB SCAN 02/12/2022 12:00 Results for this AM EDT procedure are i n the results section. MRI BRAIN WO CONTRAST Routine 02/11/2022 5:13 Res ults for this PM EDT procedure are i n the results section. HC SODIUM Timed 02/11/2022 4:09 Results for this PM EDT procedure are i n the results section. HC SODIUM Timed 02/11/2022 8:20 Results for [...] procedure are in the results section. HC SODIUM Timed 02/10/2022 [...] Routine 02/09/2022 5:43 Result s for this (NL) PM EDT procedure are i n the [...] 02/09/2022 4:26 HOMOGENIZATION FOR PM EDT CULTURE TISSUE CULTURE Routine 02/09/2022 4:26 Results fo r this PM EDT procedure are i n the results section. HC SODIUM Timed 02/09/2022 12:29 Results for [...] 7:21 SUBCU, LOWER EXTREMITY AM EDT HC SODIUM Timed 02/09/2022 6:25 Results for this AM EDT procedure are i n the results section. HC PHOSPHORUS, SERUM STAT 02/09/2022 6:25 Resu [...] EDT procedure are in the results section. SCAN, PERIPHERAL BLOOD Routine [...] Routine 02/08/2022 6:00 Result s for this ([facility]) PM EDT [...] WOUND/ABSCESS CX Routine 02/08/2022 4:13 PM EDT ABSCESS/WOUND ASPIRATE Routine 02/08/2022 4:13 Re sults [...] the results section. DEBRIDEMENT SKIN AND Routine 02/08/2022 9:06 SUBCU, [...] the results section. HC FIBRINOGEN TITER Routine 02/08/2022 1:00 Resul ts for this AM EDT procedure are i n the results section. HC CBC,PLT & AUTO DIFF Routine 02/08/2022 1:00 AM EDT HC SODIUM Timed 02/08/2022 12:01 Results for [...] AUTO DIFF STAT 02/07/2022 1:00 PM EDT PHOSPHORUS Routine 02/07/2022 1:00 Results for this PM EDT procedure are i n the results section. MAGNESIUM Routine 02/07/2022 1:00 Results for this PM EDT procedure are i n the results section. BASIC METABOLIC PANEL Routine 02/07/2022 1:00 Res ults for this (NON-FASTING) PM EDT procedure are in the results section. CENTRAL LINE Routine 02/07/2022 12:52 Results for this PM EDT procedure are i n the results section. POCT GLUCOSE Routine 02/07/2022 8:22 Results for [...] FIBRINOGEN TITER Routine 02/07/2022 2:10 AM EDT PROTHROMBIN TIME Routine 02/07/2022 2:10 Results for [...] section. BLOOD GAS 2 ARTERIAL Routine 02/07/2022 12:52 [...] procedure are in the results section. HC PLATELET COUNT Routine 02/06/2022 11:11 PM EDT PROTHROMBIN TIME Routine 02/06/2022 11:11 Results for [...] n the results section. HC SODIUM Timed 02/06/2022 11:11 Results for this PM EDT procedure are i n the results section. HC PH DETERMINATION, STAT 02/06/2022 10:51 Res ults for this ARTERIAL PM EDT procedure are i n the results section. HC HEMOGLOBIN, BLOOD Routine 02/06/2022 10:20 PM EDT PROTHROMBIN TIME Routine 02/06/2022 10:20 Results for [...] FIBRINOGEN TITER Routine 02/06/2022 7:45 PM EDT PROTHROMBIN TIME Routine 02/06/2022 7:45 Results for this PM EDT procedure are i n the results section. FIBRINOGEN Routine 02/06/2022 7:45 Results for this [...] section. BLOOD GAS 2 ARTERIAL Routine 02/06/2022 7:44 [...] AUTO DIFF Routine 02/06/2022 4:20 PM EDT PHOSPHORUS STAT 02/06/2022 4:20 Results for this PM EDT procedure are i n the results section. MAGNESIUM STAT 02/06/2022 4:20 Results for this PM EDT procedure are i n the results section. BASIC METABOLIC PANEL STAT 02/06/2022 4:20 Res ults for this (NON-FASTING) PM EDT procedure are in the results section. BLOOD GAS 2 ARTERIAL Routine 02/06/2022 3:54 Resu lts for this PM EDT procedure are i n the results section. IR ARTERIOGRAM LOWER Routine 02/06/2022 3:34 Resu lts for this EXTREMITY PM EDT procedure are i n the results section. INCISION & DRAINAGE Routine 02/06/2022 12:30 ABSCESS OR HEMATOMA, PM EDT THIGH, KNEE SUPERFICIAL POCT GLUCOSE Routine 02/06/2022 12:16 Results for this PM EDT procedure are i n the results section. HC PLATELET COUNT Routine 02/06/2022 11:30 AM EDT PROTHROMBIN TIME Routine 02/06/2022 11:30 Results for [...] n the results section. HC SODIUM Timed 02/06/2022 11:30 Results for this AM EDT procedure are i n the results section. PREPARE RBC STAT 02/06/2022 10:35 Results for this AM EDT procedure are i n the results section. HC PLATELET COUNT Routine 02/06/2022 9:35 AM EDT PROTHROMBIN TIME Routine 02/06/2022 9:35 Results for [...] results section. TRANSFUSE RED BLOOD STAT 02/06/2022 9:14 CELLS [...] FIBRINOGEN TITER STAT 02/06/2022 6:16 AM EDT PROTHROMBIN TIME STAT 02/06/2022 6:16 Results for [...] section. BLOOD GAS 2 ARTERIAL Routine 02/06/2022 6:14 [...] HEMOGLOBIN, BLOOD STAT 02/06/2022 12:50 AM EDT PROTHROMBIN TIME STAT 02/06/2022 12:50 Results for [...] procedure are in the results section. TRANSFUSE THAWED STAT 02/06/2022 12:23 PLASMA AM [...] results section. HC HEMOGLOBIN, BLOOD STAT 02/05/2022 9:30 Resu [...] ANTIBODY Routine 02/05/2022 1:50 DETECTION,CAPTURE-R AM EDT HEMOGRAM Routine 02/05/2022 12:56 Results for this AM EDT procedure are i n the results section. DIFFERENTIAL, Routine 02/05/2022 12:56 Results fo r this AUTOMATED AM EDT procedure are i n the results section. HC CBC,PLT & AUTO DIFF Routine 02/05/2022 12:56 AM EDT HC PHOSPHORUS, SERUM Routine 02/05/2022 12:56 Res ults for this AM EDT procedure are i n the results section. HC MAGNESIUM, SERUM Routine 02/05/2022 12:56 Resu lts for this AM EDT procedure are i n the results section. BASIC METABOLIC PANEL Routine 02/05/2022 12:56 Re sults for this (NON-FASTING) AM EDT procedure are in the results section. BLOOD GAS 2 VENOUS Routine 02/04/2022 6:43 Result s for this PM EDT procedure are i n the results section. HC TRICHOMONAS GENE Routine 02/04/2022 4:20 Resul [...] AUTO DIFF Routine 02/04/2022 4:21 AM EDT HC PHOSPHORUS, SERUM Routine 02/04/2022 4:21 Resu lts for this AM EDT procedure are i n the results section. HC MAGNESIUM, SERUM Routine 02/04/2022 4:21 Resul ts for this AM EDT procedure are i n the results section. ALBUMIN LEVEL Routine 02/04/2022 4:21 Results for this AM EDT procedure are i n the results section. BASIC METABOLIC PANEL Routine 02/04/2022 4:21 Res ults for this (NON-FASTING) AM EDT procedure are in the results section. POCT GLUCOSE Routine 02/03/2022 [...] AUTO DIFF Routine 02/03/2022 4:55 AM EDT HC PHOSPHORUS, SERUM Routine 02/03/2022 4:55 Resu [...] the results section. BASIC METABOLIC PANEL Routine 02/03/2022 4:55 Res ults for this (NON-FASTING) AM EDT procedure are in the results section. POCT GLUCOSE Routine 02/02/2022 4:08 Results for this PM EDT procedure are i n the results section. DEBRIDEMENT SKIN, Routine 02/02/2022 12:54 SUBCU, MUSCLE, [...] AUTO DIFF Routine 02/02/2022 2:29 AM EDT HC PHOSPHORUS, SERUM Routine 02/02/2022 2:29 Resu lts for this AM EDT procedure are i n the results section. HC MAGNESIUM, SERUM Routine 02/02/2022 2:29 Resul ts for this AM EDT procedure are i n the results section. BASIC METABOLIC PANEL Routine 02/02/2022 2:29 Res [...] EDT procedure are in the results section. POCT GLUCOSE Routine 02/01/2022 [...] AUTO DIFF Routine 02/01/2022 1:02 AM EDT HC PHOSPHORUS, SERUM Routine 02/01/2022 1:02 Resu lts for this AM EDT procedure are i n the results section. HC MAGNESIUM, SERUM Routine 02/01/2022 1:02 Resul ts for this AM EDT procedure are i n the results section. BASIC METABOLIC PANEL Routine 02/01/2022 1:02 Res ults for this (NON-FASTING) AM EDT procedure are in the results section. HC PH DETERMINATION, STAT [...] SUBCU, MUSCLE, BONE AM EDT UPPER EXTREMITY POCT GLUCOSE Routine 01/31/2022 10:03 Results for [...] DIFF Routine 01/31/2022 12:42 AM EDT HC UREA NITROGEN, STAT 01/31/2022 12:42 Result s for this SERUM AM EDT procedure are i n the results section. ELECTROLYTES PANEL STAT 01/31/2022 12:42 Resul ts for this AM EDT procedure are i n the results section. HC PH DETERMINATION, STAT 01/30/2022 8:17 Resu [...] AUTO DIFF Routine 01/30/2022 4:10 AM EDT HC PHOSPHORUS, SERUM Routine 01/30/2022 4:10 Resu [...] procedu re are in the results section. BASIC METABOLIC PANEL Routine 01/30/2022 4:10 Res ults for this (NON-FASTING) AM EDT procedure are in the results section. POCT GLUCOSE Routine 01/30/2022 12:07 Results for this AM EDT procedure are i n the results section. POCT GLUCOSE Routine 01/29/2022 9:40 Results for this PM EDT procedure are i n the results section. HC PHOSPHORUS, SERUM STAT 01/29/2022 9:35 Resu lts for this PM EDT procedure are i n the results section. SCAN, PERIPHERAL BLOOD Routine 01/29/2022 2:55 Re sults for this AM EDT procedure are i n the results section. HEMOGRAM Routine 01/29/2022 2:55 Results for this AM EDT procedure are i n the results section. DIFFERENTIAL, Routine 01/29/2022 2:55 Results for this AUTOMATED AM EDT procedure are i n the results section. HC CBC,PLT & AUTO DIFF Routine 01/29/2022 2:55 AM EDT HC PHOSPHORUS, SERUM Routine 01/29/2022 2:55 Resu lts for this AM EDT procedure are i n the results section. HC MAGNESIUM, SERUM Routine 01/29/2022 2:55 Resul ts for this AM EDT procedure are i n the results section. HC CREATINE Routine 01/29/2022 2:55 Results for this PHOSPHOKINASE, SERUM AM EDT procedu re are in the results section. BASIC METABOLIC PANEL Routine 01/29/2022 2:55 Res [...] AUTO DIFF Routine 01/28/2022 12:18 AM EDT HC PHOSPHORUS, SERUM Routine 01/28/2022 12:18 Res [...] the results section. BASIC METABOLIC PANEL Routine 01/28/2022 12:18 Re sults for this (NON-FASTING) AM EDT procedure are in the results section. POCT GLUCOSE [...] re are in the results section. HC PHOSPHORUS, [...] EDT procedure are in the results section. EXTUBATE Routine 01/27/2022 12:06 AM EDT POCT GLUCOSE Routine 01/26/2022 8:59 Results for this PM EDT procedure are i n the results section. BLOOD GAS VENOUS ([facility]) STAT 01/26/2022 6:19 Re sults for this [...] the results section. POCT GLUCOSE Routine 01/26/2022 2:00 Results for [...] AUTO DIFF Routine 01/26/2022 12:20 AM EDT HC TRIGLYCERIDES Routine 01/26/2022 12:20 Results for [...] the results section. BASIC METABOLIC PANEL Routine 01/26/2022 12:20 Re sults for this (NON-FASTING) AM EDT procedure are in the results section. POCT GLUCOSE [...] in the results section. ELECTROLYTES PANEL STAT 01/25/2022 [...] AUTO DIFF Routine 01/25/2022 12:30 AM EDT HC PHOSPHORUS, SERUM Routine 01/25/2022 12:30 Res [...] the results section. BASIC METABOLIC PANEL Routine 01/25/2022 12:30 Re sults for this (NON-FASTING) AM EDT procedure are in the results section. POCT GLUCOSE Routine 01/25/2022 12:19 Results for this AM EDT procedure are i n the results section. CT [place] W Routine 01/24/2022 11:32 [...] AUTO DIFF Routine 01/24/2022 12:18 AM EDT HC PHOSPHORUS, SERUM Routine 01/24/2022 12:18 Res [...] the results section. BASIC METABOLIC PANEL Routine 01/24/2022 12:18 Re sults for this (NON-FASTING) AM EDT procedure are in the results section. POCT GLUCOSE [...] the results section. POCT GLUCOSE Routine 01/23/2022 7:28 Results for this AM EDT procedure are i n the results section. BLOOD GAS ARTERIAL Routine 01/23/2022 7:21 Result s for this (NL) AM EDT procedure are i n the [...] procedure are in the results section. CT UPPER EXTREMITY W STAT 01/23/2022 3:58 Resu lts for this CONTRAST LEFT AM EDT procedure are in the results section. CT CHEST WO CONTRAST STAT 01/23/2022 3:58 Resu lts for this (GENERIC) AM EDT procedure are i n the results section. CT HEAD WO CONTRAST [...] i n the results section. RAPID DRUG SCREEN, Routine 01/23/2022 1:45 Result s for this URINE (MEGHNA REQUEST) AM EDT procedur e are in the results section. RAPID DRUG SCREEN W/O [...] EDT procedure are in the results section. ABORH RECHECK STATUS STAT [...] AUTO DIFF Routine 01/23/2022 12:45 AM EDT ANTIBODY SCREEN STAT 01/23/2022 12:45 Results for this AM EDT procedure are i n the results section. HC ANTIBODY STAT 01/23/2022 12:45 DETECTION,CAPTURE-R AM EDT HC TROPONIN T STAT 01/23/2022 12:45 Results [...] in the results section. HEPATIC FUNCTION PANEL Routine 01/23/2022 12:45 R esults for this AM EDT procedure are i n the results section. BASIC METABOLIC PANEL Routine 01/23/2022 12:45 Re sults for this (NON-FASTING) AM EDT procedure are in the results section. COVID-19 PCR Routine 01/23/2022 12:44 Results for this AM EDT procedure are i n the results section. HC MRSA DETECTION BY Routine 01/23/2022 12:44 Res ults for this PCR AM EDT procedure are i n the results section. POCT GLUCOSE Routine 01/23/2022 12:44 Results for this AM EDT procedure are i n the results section. documented in this encounter Results (ABNORMAL) Differential, Automated (03/23/2022 4:35 AM EDT) P athologist Signature Neutrophils % 65.3 % [facility] Neutr Abs (ANC) 5.26 1.70 - [facility] 6.10 [facility] x10(3)/[facility] LABORATORY Lymphocytes % 17.2 % [facility] Lymphocytes Abs 1.4 0.9 - 3.2 [facility] x10(3)/[facility] LABORATORY Monocytes % 11.0 % [facility] Monocyte Abs 0.9 0.3 - 0.9 [facility] x10(3)/[facility] LABORATORY Eosinophils % 4.6 % [facility] Eosinophils Abs 0.4 0.0 - 0.4 [facility] x10(3)/[facility] LABORATORY Basophils % 0.7 % [facility] Basophils Abs 0.1 0.0 - 0.1 [place] 159740(3)/[facility] LABORATORY Immature Gran % 1.20 % [facility] Comment: Immature granulocytes(IG's)percentage an d absolute count will include metamyelocytes, myelocytes, and promyelo cytes. Blood smears from CBCs yielding IG's will be scanned manually for concor dance. If this scan disagrees with the automated IG or if promyelocytes are not ed, a manual differential will be performed. Gemini Gran Abs 0.10 (H) 0.00 - 0.04 x10(3)/[facility] LABORATORY Specimen Anatomical Collection Method Collection Time Receive d Time (Source) Location / / Volume Laterality Blood 03/23/2022 4:35 AM 5:10 EDT AM EDT Resulting Agency Comment Spec In Lab Jhony Carnes MD HEMATOLOGY ORDERABLES Performing Organization Address City/State/Z[place] [address] (ABNORMAL) Hemogram (03/23/2022 4:35 AM EDT) Analysis Performed At Patho logist Time Signature WBC 8.1 4.0 - 9.5 [facility] x10(3)/[facility] LABORATORY RBC 2.96 (L) 4.58 - [facility] 5.54 [facility] x10(6)/[facility] LABORATORY Hemoglobin 8.9 (L) 13.7 - [facility] 16.5 g/dL [facility] Hematocrit 26.2 (L) 40.5 - [facility] 48.5 % [facility] MCV 88.5 82.9 - [facility] 93.1 [facility] LABORATORY MCH 30.1 27.5 - [facility] 32.1 pg [facility] MCHC 34.0 32.0 - [facility] 35.7 g/dL [facility] Platelets 230 145 - 357 [facility] x10(3)/[facility] LABORATORY RDWSD 48.9 (H) 36.0 - [facility] 45.0 [facility] LABORATORY RDWCV 15.3 (H) 11.4 - [facility] 13.[facility] % [facility] MPV 9.8 7.6 - 12.9 [facility] LABORATORY nRBC % Auto 0.0 % [facility] nRBC Abs Auto 0.000 0.000 - [facility] 0.000 [facility] x10(3)/[facility] LABORATORY Specimen Anatomical Collection Method Collection Time Receive d Time (Source) Location / / Volume Laterality Blood 03/23/2022 4:35 AM 2 5:10 EDT AM EDT Resulting Agency Comment Spec In Lab Jhony Carnes MD HEMATOLOGY ORDERABLES Performing Organization Address City/State/ZIP [place] [address] (ABNORMAL) Basic Metabolic Panel (non-fasting) (03/23/2022 3:00 AM EDT) athologist Signature Glucose Lvl 102 65 - 199 [facility] mg/dL [facility] Comment: Diabetes: >=200 mg/dL plus symp toms BUN 15 10 - 20 mg/dL [facility] Creatinine 0.55 (L) 0.80 - 1.50 mg/dL [facility] Sodium 139 135 - 145 mmol/L [facility] Potassium 4.1 3.5 - 5.0 mmol/L [facility] Comment: Please note: ??Patients with WBC >100,00 0 may have falsely elevated Potassium levels. ??For accurate Potassium quantif ication in these patients send serum separator tube (gold top) for subsequent determinations. ??Contact the Clinical Chemistry Laboratory if there are any qu estions. Chloride 101 98 - 107 mmol/L [facility] CO2 25 22 - 31 mmol/L [facility] Anion Gap 13 5 - 15 mmol/L [facility] Calcium 9.6 8.5 - 10.5 mg/dL [facility] Estimated GFR 137 >=60 mL/min/1.73 m?? [facility] Comment: This patient's estimated GFR [...] / Volume Laterality Blood 03/23/2022 3:00 AM 2 3:32 EDT AM EDT Resulting Agency Comment Spec In Lab Jayme Armstrong MD CHEMISTRY ORDERABLES Performing Organization Address City/State/Z[place] [address] (ABNORMAL) Differential, Automated (03/22/2022 4:15 AM EDT) [facility] gist Method Time Signature Neutrophils % 63.3 % [facility] Neutr Abs (ANC) 5.68 1.70 - [facility] 6.10 [facility] x10(3)/[facility] LABORATORY Lymphocytes % 17.7 % [facility] Lymphocytes Abs 1.6 0.9 - 3.2 [facility] x10(3)/[facility] LABORATORY Monocytes % 12.3 % [facility] Monocyte Abs 1.1 (H) 0.3 - 0.9 [facility] x10(3)/[facility] LABORATORY Eosinophils % 4.3 % [facility] Eosinophils Abs 0.4 0.0 - 0.4 [facility] x10(3)/[facility] LABORATORY Basophils % 0.7 % [facility] Basophils Abs 0.1 0.0 - 0.1 [facility] x10(3)/[facility] LABORATORY Immature Gran % 1.70 % [facility] Comment: Immature granulocytes(IG's)percentage an d absolute count will include metamyelocytes, myelocytes, and promyelo cytes. Blood smears from CBCs yielding IG's will be scanned manually for concor dance. If this scan disagrees with the automated IG or if promyelocytes are not ed, a manual differential will be performed. Gemini Gran Abs 0.15 (H) 0.00 - 0.04 x10(3)/[facility] LABORATORY Specimen Anatomical Collection Method Collection Time Receive d Time (Source) Location / / Volume Laterality Blood 03/22/2022 4:15 AM 4:35 EDT AM EDT Resulting Agency Comment Spec In Lab Batsheva Hill MD HEMATOLOGY ORDERABLES Performing Organization Address City/State/Z[place] [address] (ABNORMAL) Hemogram (03/22/2022 4:15 AM EDT) Analysis Performed At Patho logist Time Signature WBC 9.0 4.0 - 9.5 [facility] x10(3)/[facility] LABORATORY RBC 3.20 (L) 4.58 - [facility] 5.54 [facility] x10(6)/[facility] LABORATORY Hemoglobin 9.5 (L) 13.7 - [facility] 16.5 g/dL [facility] Hematocrit 28.0 (L) 40.5 - [facility] 48.5 % [facility] MCV 87.5 82.9 - [facility] 93.1 [facility] LABORATORY MCH 29.7 27.5 - [facility] [place] 32.1 pg [facility] MCHC 33.9 32.0 - [facility] [place] 35.7 g/dL [facility] Platelets 248 145 - 357 [facility] x10(3)/[facility] LABORATORY RDWSD 47.8 (H) 36.0 - [facility] [place] 45.0 [facility] LABORATORY RDWCV 14.9 (H) 11.4 - [facility] 13.8 % [facility] MPV 8.8 7.6 - 12.9 [facility] LABORATORY nRBC % Auto 0.0 % [facility] nRBC Abs Auto 0.000 0.000 - [facility] 0.000 [facility] x10(3)/[facility] LABORATORY Specimen Anatomical Collection Method Collection Time Receive d Time (Source) Location / / Volume Laterality Blood 03/22/2022 4:15 AM 4:35 EDT AM EDT Resulting Agency Comment Spec In Lab Batsheva Hill MD HEMATOLOGY ORDERABLES Performing Organization Address City/State/Z[place] [address] (ABNORMAL) Basic Metabolic Panel (non-fasting) (03/22/2022 4:15 AM EDT) P athologist Signature Glucose Lvl 98 65 - 199 [facility] mg/dL [facility] Comment: Diabetes: >=200 mg/dL plus symp toms BUN 16 10 - 20 mg/dL [facility] Creatinine 0.52 (L) 0.80 - 1.50 mg/dL [facility] Sodium 137 135 - 145 mmol/L [facility] Potassium 4.0 3.5 - 5.0 mmol/L [facility] Comment: Please note: ??Patients with WBC >100,00 0 may have falsely elevated Potassium levels. ??For accurate Potassium quantif ication in these patients send serum separator tube (gold top) for subsequent determinations. ??Contact the Clinical Chemistry Laboratory if there are any qu estions. Chloride 100 98 - 107 mmol/L [facility] CO2 24 22 - 31 mmol/L [facility] Anion Gap 13 5 - 15 mmol/L [facility] Calcium 9.6 8.5 - 10.5 mg/dL [facility] Estimated GFR 139 >=60 mL/min/1.73 m?? [facility] Comment: This patient's estimated GFR [...] (Source) Location / / Volume Laterality Blood 03/22/2022 4:15 AM 4:35 EDT AM EDT Resulting Agency Comment Spec In Lab Jeanette Chatterjee MD CHEMISTRY ORDERABLES Performing Organization Address City/State/Z[place] [address] (ABNORMAL) Basic Metabolic Panel (non-fasting) (03/20/2022 12:27 PM EDT) P athologist Signature Glucose Lvl 94 65 - 199 [facility] mg/dL [facility] Comment: Diabetes: >=200 mg/dL plus symp toms BUN 13 10 - 20 mg/dL [facility] Creatinine 0.67 (L) 0.80 - 1.50 mg/dL [facility] Sodium 140 135 - 145 mmol/L [facility] Potassium 4.3 3.5 - 5.0 mmol/L [facility] Comment: Please note: ??Patients with WBC >100,00 0 may have falsely elevated Potassium levels. ??For accurate Potassium quantif ication in these patients send serum separator tube (gold top) for subsequent determinations. ??Contact the Clinical Chemistry Laboratory if there are any qu estions. Chloride 104 98 - 107 mmol/L [facility] CO2 23 22 - 31 mmol/L [facility] Anion Gap 13 5 - 15 mmol/L [facility] Calcium 9.6 8.5 - 10.5 mg/dL [facility] Estimated GFR 129 >=60 mL/min/1.73 m?? [facility] Comment: This patient's estimated GFR [...] / 03/20/2022 12:27 03/20/2022 Unknown PM EDT 12:30 PM EDT Resulting Agency Comment Spec In Lab Sixto Medina MD CHEMISTRY ORDERABLES Performing Organization Address City/State/Z[place] [address] Green Tube HOLD (03/20/2022 12:27 PM EDT) athologist Signature Green Hold Sample in [facility]. [facility] Comment: Collection date/time has been modified t o: 12:27:00. ??Previous collection date/time: 12:28:00 . Corrected from Sample in lab. [NA] on 12:29:23 EDT by Kevon Dickens Specimen Anatomical Collection Method Collection Time Receive d Time (Source) Location / / Volume Laterality Blood No Charge / 03/20/2022 12:27 03/20/2022 Unknown PM EDT 12:28 PM EDT Vteo Hidalgo MD CHEMISTRY ORDERABLES Performing Organization Address City/[facility]/ZIP Code Phon e Number [address] Phosphorus (03/20/2022 12:00 PM EDT) P athologist Signature Phosphorus 3.8 2.5 - 4.5 [facility] mg/dL [facility] Specimen Anatomical Collection Method Collection Time Receive d Time (Source) Location / / Volume Laterality Blood 03/20/2022 12:00 03/20/2022 PM EDT 12:26 PM EDT Resulting Agency Comment Spec In Lab Jeanette Chatterjee MD CHEMISTRY ORDERABLES Performing Organization Address City/[facility]/ZIP Code Phon e Number [address] Magnesium (03/20/2022 12:00 PM EDT) P athologist Signature Magnesium 0.75 0.69 - 1.07 [facility] mmol/L [facility] Specimen Anatomical Collection Method Collection Time Receive d Time (Source) Location / / Volume Laterality Blood 03/20/2022 12:00 03/20/2022 PM EDT 12:26 PM EDT Resulting Agency Comment Spec In Lab Jeanette Chatterjee MD CHEMISTRY ORDERABLES Performing Organization Address City/[facility]/ZIP Code Phon e Number [address] Vancomycin, trough (03/14/2022 3:09 PM EDT) P athologist Signature Vanc Trough 16.1 mg/L [facility] Comment: Therapeutic range for complicated infect ions such as bacteremia, endocarditis, osteomyelitis, meningitis, and hospital- acquired pneumonia caused by S. aureus: 15-20 mg/L Therapeutic range for other indications: 10-15 mg/L Toxic: >20 mg/L Reference: Vancomycin Therapeutic Monitoring: Revie w and Recommendations from the ASHP, IDSA and SIDP Task Force. ??Am J Health- Syst Pharm. 2009; 66:82-98 Specimen Anatomical Collection Method Collection Time Receive d Time (Source) Location / / Volume Laterality Blood 03/14/2022 3:09 PM 3:13 EDT PM EDT Resulting Agency Comment Spec In Lab Floridalma Sandoval MD CHEMISTRY ORDERABLES Performing Organization Address City/State/Z[place] [address] (ABNORMAL) Differential, Automated (03/13/2022 6:02 AM EDT) athologist Signature Neutrophils % 68.2 % [facility] Neutr Abs (ANC) 5.47 1.70 - [facility] 6.10 [facility] x10(3)/[facility] LABORATORY Lymphocytes % 17.0 % [facility] Lymphocytes Abs 1.4 0.9 - 3.2 [facility] x10(3)/[facility] LABORATORY Monocytes % 8.0 % [facility] Monocyte Abs 0.6 0.3 - 0.9 [facility] x10(3)/[facility] LABORATORY Eosinophils % 4.2 % [facility] Eosinophils Abs 0.3 0.0 - 0.4 [facility] x10(3)[facility] LABORATORY Basophils % 0.5 % [facility] Basophils Abs 0.0 0.0 - 0.1 [facility] x10(3)/[facility] LABORATORY Immature Gran % 2.10 % [facility] Comment: Immature granulocytes(IG's)percentage an d absolute count will include metamyelocytes, myelocytes, and promyelo cytes. Blood smears from CBCs yielding IG's will be scanned manually for concor dance. If this scan disagrees with the automated IG or if promyelocytes are not ed, a manual differential will be performed. Gemini Gran Abs 0.17 (H) 0.00 - 0.04 x10(3)/[facility] LABORATORY Specimen Anatomical Collection Method Collection Time Receive d Time (Source) Location / / Volume Laterality Blood 03/13/2022 6:02 AM 2 6:17 EDT AM EDT Resulting Agency Comment Spec In Lab Nancy Chahal MD HEMATOLOGY ORDERABLES Performing Organization Address City/[facility]/ZIP [place] [address] (ABNORMAL) Hemogram (03/13/2022 6:02 AM EDT) Analysis Performed At Patho logist Time Signature WBC 8.0 4.0 - 9.5 [facility] x[facility](3)/[facility] LABORATORY RBC 3.12 (L) 4.58 - [facility] 5.54 [facility] x10(6)/[facility] LABORATORY Hemoglobin 9.1 (L) 13.7 - [facility] 16.5 g/dL [facility] Hematocrit 27.5 (L) 40.5 - [facility] 48.5 % [facility] MCV 88.1 82.9 - [facility] 93.1 [facility] LABORATORY MCH 29.2 27.5 - [facility] 32.1 pg [facility] MCHC 33.1 32.0 - [facility] 35.7 g/dL [facility] Platelets 254 145 - 357 [facility] x10(3)/[facility] LABORATORY RDWSD 49.4 (H) 36.0 - [facility] 45.0 [facility] LABORATORY RDWCV 15.5 (H) 11.4 - [facility] 13.8 % [facility] MPV 8.4 7.6 - 12.9 [facility] nRBC % Auto 0.0 % [facility] nRBC Abs Auto 0.000 0.000 - [facility] 0.000 [facility] x10(3)/[facility] LABORATORY Specimen Anatomical Collection Method Collection Time Receive d Time (Source) Location / / Volume Laterality Blood 03/13/2022 6:02 AM 2 6:17 EDT AM EDT Resulting Agency Comment Spec In Lab Nancy Chahal MD HEMATOLOGY ORDERABLES Performing Organization Address City/State/ZIP Code Phon e Number [address] (ABNORMAL) Phosphorus (03/13/2022 6:02 AM EDT) athologist Signature Phosphorus 4.9 (H) 2.5 - 4.5 [facility] mg/dL [facility] Specimen Anatomical Collection Method Collection Time Receive d Time (Source) Location / / Volume Laterality Blood 03/13/2022 6:02 AM 2 6:17 EDT AM EDT Resulting Agency Comment Spec In Lab Floridalma Sandoval MD CHEMISTRY ORDERABLES Performing Organization Address City/State/ZIP Code Phon e Number [address] Magnesium (03/13/2022 6:02 AM EDT) athologist Signature Magnesium 0.70 0.69 - 1.07 [facility] mmol/L [facility] Specimen Anatomical Collection Method Collection Time Receive d Time (Source) Location / / Volume Laterality Blood 03/13/2022 6:02 AM 2 6:17 EDT AM EDT Resulting Agency Comment Spec In Lab Floridalma Sandoval MD CHEMISTRY ORDERABLES Performing Organization Address City/State/ZIP Code Phon e Number [address] (ABNORMAL) Basic Metabolic Panel (non-fasting) (03/13/2022 6:02 AM EDT) athologist Signature Glucose Lvl 100 65 - 199 [facility] mg/dL [facility] Comment: Diabetes: >=200 mg/dL plus symp toms BUN 12 10 - 20 mg/dL [facility] Creatinine 0.65 (L) 0.80 - 1.50 mg/dL [facility] Sodium 139 135 - 145 mmol/L [facility] Potassium 3.9 3.5 - 5.0 mmol/L [facility] Comment: Please note: ??Patients with WBC >100,00 0 may have falsely elevated Potassium levels. ??For accurate Potassium quantif ication in these patients send serum separator tube (gold top) for subsequent determinations. ??Contact the Clinical Chemistry Laboratory if there are any qu estions. Chloride 101 98 - 107 mmol/L [facility] CO2 25 22 - 31 mmol/L [facility] Anion Gap 13 5 - 15 mmol/L [facility] Calcium 9.6 8.5 - 10.5 mg/dL [facility] Estimated GFR 130 >=60 mL/min/1.73 m?? [facility] Comment: This patient's estimated GFR [...] (Source) Location / / Volume Laterality Blood 03/13/2022 6:02 AM 6:17 EDT AM EDT Resulting Agency Comment Spec In Lab Floridalma Sandoval MD CHEMISTRY ORDERABLES Performing Organization Address City/State/Z[place] [address] (ABNORMAL) Differential, Automated (03/10/2022 5:45 AM EDT) [facility] gist Method Time Signature Neutrophils % 58.5 % [facility] Neutr Abs (ANC) 4.21 1.70 - [facility] 6.10 [facility] x10(3)/[facility] LABORATORY Lymphocytes % 17.8 % [facility] Lymphocytes Abs 1.3 0.9 - 3.2 [facility] x10(3)/[facility] LABORATORY Monocytes % 13.5 % [facility] Monocyte Abs 1.0 (H) 0.3 - 0.9 [facility] x10(3)/[facility] LABORATORY Eosinophils % 5.3 % [facility] Eosinophils Abs 0.4 0.0 - 0.4 [facility] x10(3)/[facility] LABORATORY Basophils % 0.6 % [facility] Basophils Abs 0.0 0.0 - 0.1 [facility] x10(3)/[facility] LABORATORY Immature Gran % 4.30 % [facility] Comment: Immature granulocytes(IG's)percentage an d absolute count will include metamyelocytes, myelocytes, and promyelo cytes. Blood smears from CBCs yielding IG's will be scanned manually for concor dance. If this scan disagrees with the automated IG or if promyelocytes are not ed, a manual differential will be performed. Gemini Gran Abs 0.31 (H) 0.00 - 0.04 x10(3)/[facility] LABORATORY Specimen Anatomical Collection Method Collection Time Receive d Time (Source) Location / / Volume Laterality Blood 03/10/2022 5:45 AM 6:05 EDT AM EDT Resulting Agency Comment Spec In Lab Nancy Chahal MD HEMATOLOGY ORDERABLES Performing Organization Address City/State/ZIP Code Phon e Number [place] [phone]OSP[address] LAB[address]ORY Drive (ABNORMAL) Hemogram (03/10/2022 5:45 AM EDT) Analysis Performed At Patho logist Time Signature WBC 7.2 4.0 - 9.5 [facility] x10(3)/[facility] LABORATORY RBC 3.13 (L) 4.58 - [facility] 5.54 [facility] x10(6)/[facility]ORATORY Hemoglobin 9.1 (L) 13.7 - [facility] g/dL [facility] Hematocrit 27.3 (L) 40.5 - [facility] 48.[facility] % [facility] MCV 87.2 82.9 - [facility] 93.1 fL [facility] MCH 29.1 27.5 - [facility] 32.1 pg [facility] MCHC 33.3 32.0 - [facility] 35.7 g/dL [facility] Platelets 256 145 - 357 [facility] x10(3)/[facility] LABORATORY RDWSD 50.6 (H) 36.0 - [facility] 45.0 [facility] LABORATORY RDWCV 15.9 (H) 11.4 - [facility] 13.8 % [facility] MPV 8.5 7.6 - 12.9 [facility] LABORATORY nRBC % Auto 0.0 % [facility] nRBC Abs Auto 0.000 0.000 - [facility] 0.000 [facility] x10(3)/[facility] LABORATORY Specimen Anatomical Collection Method Collection Time Receive d Time (Source) Location / / Volume Laterality Blood 03/10/2022 5:45 AM 2 6:05 EDT AM EDT Resulting Agency Comment Spec In Lab Nancy Chahal MD HEMATOLOGY ORDERABLES Performing Organization Address City/State/ZIP Code Phon e Number [address] (ABNORMAL) Phosphorus (03/10/2022 5:45 AM EDT) P athologist Signature Phosphorus 4.6 (H) 2.5 - 4.5 [facility]/dL [facility] Specimen Anatomical Collection Method Collection Time Receive d Time (Source) Location / / Volume Laterality Blood 03/10/2022 5:45 AM 2 6:05 EDT AM EDT Resulting Agency Comment Spec In Lab Floridalma Sandoval MD CHEMISTRY ORDERABLES Performing Organization Address City/State/ZIP Code Phon e Number [address] Magnesium (03/10/2022 5:45 AM EDT) P athologist Signature Magnesium 0.77 0.69 - 1.07 [facility] mmol/L [facility] Specimen Anatomical Collection Method Collection Time Receive d Time (Source) Location / / Volume Laterality Blood 03/10/2022 5:45 AM 2 6:05 EDT AM EDT Resulting Agency Comment Spec In Lab Floridalma Sandoval MD CHEMISTRY ORDERABLES Performing Organization Address City/State/ZIP [place] [address] Basic Metabolic Panel (non-fasting) (03/10/2022 5:45 AM EDT) P athologist Signature Glucose Lvl 95 65 - 199 [facility] mg/dL [facility] Comment: Diabetes: >=200 mg/dL plus symp toms BUN 20 10 - 20 mg/dL [facility] Creatinine 0.85 0.80 - 1.50 mg/dL [facility] Sodium 142 135 - 145 mmol/L [facility] Potassium 4.0 3.5 - 5.0 mmol/L [facility] Comment: Please note: ??Patients with WBC >100,00 0 may have falsely elevated Potassium levels. ??For accurate Potassium quantif ication in these patients send serum separator tube (gold top) for subsequent determinations. ??Contact the Clinical Chemistry Laboratory if there are any qu estions. Chloride 103 98 - 107 mmol/L [facility] CO2 25 22 - 31 mmol/L [facility] Anion Gap 14 5 - 15 mmol/L [facility] Calcium 9.1 8.5 - 10.5 mg/dL [facility] Estimated GFR 120 >=60 mL/min/1.73 m?? [facility] Comment: This patient's estimated GFR [...] (Source) Location / / Volume Laterality Blood 03/10/2022 5:45 AM 6:05 EDT AM EDT Resulting Agency Comment Spec In Lab Floridalma Sandoval MD CHEMISTRY ORDERABLES Performing Organization Address City/[facility]/ZIP Code Phon e Number [address] Anaerobic Culture (03/05/2022 11:05 AM EDT) [facility] Method Time Signature Anaerobic No anaerobic [facility] Culture organisms [facility] LABORATORY Specimen Anatomical Collection Method Collection Time Receive d Time (Source) Location / / Volume Laterality Fluid 03/05/2022 11:05 03/05/2022 AM EDT 12:02 PM EDT Comment: Fluid from left thigh Resulting Agency Comment Spec In Lab Elaine Dos Santos MD MICROBIOLOGY - GENERAL ORDER JT Performing Organization Address [facility] [place] [address] (ABNORMAL) Body Fluid Culture, Aerobic (03/05/2022 11:05 AM EDT) Component Value Ref Test Analysis Performed At [facility] Range Method Time Signature Body Fluid Moderate Staphylococcus aureus, MRSA [facility] Culture Many Pseudomonas aeruginosa [facility] Gram Stain Cytocentrifuge Gram Stain performed [facility] Neutrophils seen [place] Rare Gram Positive Cocci seen [facility] Rare Gram Negative Rods seen [facility] () LABORATORY Organism Staphylococcus [facility] aureus, MRSA (A) [facility] Organism Pseudomonas [facility] aeruginosa (A) [facility] Organism Gram Positive [facility] Cocci (A) [facility] Organism Gram Negative [facility] Rods (A) [facility] Specimen Anatomical Collection Method [...] Comment: Gentamicin is not a ppropriate for [place]-therapy. Staphylococcus aureus, mrsa Linezolid VITEK 2 METHOD [...] Organization Address City/State/Z[place] [address] (ABNORMAL) Basic Metabolic Panel (non-fasting) (03/04/2022 12:54 AM EDT) P athologist Signature Glucose Lvl 97 65 - 199 [facility] mg/dL [facility] Comment: Diabetes: >=200 mg/dL plus symp toms BUN 23 (H) 10 - 20 mg/dL [facility] Creatinine 1.23 0.80 - 1.50 mg/dL [facility] Sodium 141 135 - 145 mmol/L [facility] Potassium 3.7 3.5 - 5.0 mmol/L [facility] Comment: Please note: ??Patients with WBC >100,00 0 may have falsely elevated Potassium levels. ??For accurate Potassium quantif ication in these patients send serum separator tube (gold top) for subsequent determinations. ??Contact the Clinical Chemistry Laboratory if there are any qu estions. Chloride 101 98 - 107 mmol/L [facility] CO2 25 22 - 31 mmol/L [facility] Anion Gap 15 5 - 15 mmol/L [facility] Calcium 8.7 8.5 - 10.5 mg/dL [facility] Estimated GFR 81 >=60 mL/min/1.73 m?? [facility] Comment: This patient's estimated GFR [...] (Source) Location / / Volume Laterality Blood 03/04/2022 12:54 03/04/2022 1:03 AM EDT AM EDT Resulting Agency Comment Spec In Lab Jayme Armstrong MD CHEMISTRY ORDERABLES Performing Organization Address City/State/ZIP [place] [address] PICC Line: Contact Vascular Access Page [phone] Extremity to exclude: DO NOT use LEFT Arm; Is PICC procedure required PRIOR to patients discharge? Yes (03/03/2022 2:46 PM EDT) Narrative Carlita Malik RN - 03/03/2022 2:46 PM E DT Carlita Malik RN ? 03/03/2022 ??2:49 PM PICC/Midline Insertion [...] the planned procedu re. Hand Hygiene: The director of business applications did perform hand hygiene pr ior to line insertion. Catheter type: PICC Lot number: [id number] Procedure Technique: Skin was prepped with chlorhexidine. [...] procedure w ell. No Complications. Procedure Comments: CARLITA MALIK RN 03/03/2022 Jayme Armstrong MD PROCEDURE/MINOR SURGICAL [...] who have questions please contact the health nursing care attendant that requested your imaging first. ? Electronically signed by: Danielle Figueroa MD, [facility] ([phone]), at 03/03/2022 2:49 PM Narrative 03/03/2022 2:49 [...] ho have questions please contact the health nursing care attendant that requested your imaging first. Electronically signed by: Danielle Figueroa MD, [facility] ([phone]), at 03/03/2022 2:49 PM Jayme Armstrong MD IMG FLUORO ORDERABLES (ABNORMAL) Differential, Automated (03/03/2022 4:34 AM EDT) [facility] Method Time Signature Neutrophils % 49.2 % [facility] Neutr Abs (ANC) 3.20 1.70 - [facility] 6.10 [facility] x10(3)/[facility]ORATORY Lymphocytes % 23.5 % [facility] Lymphocytes Abs 1.5 0.9 - 3.2 [facility] x10(3)/[facility] LABORATORY Monocytes % 12.9 % [facility] Monocyte Abs 0.8 0.3 - 0.9 [facility] x10(3)/[facility] LABORATORY Eosinophils % 10.4 % [facility] Eosinophils Abs 0.7 (H) 0.0 - 0.4 [facility] x10(3)/[facility] LABORATORY Basophils % 0.8 % [facility] Basophils Abs 0.0 0.0 - 0.1 [facility] x10(3)/[facility] LABORATORY Immature Gran % 3.20 % [facility] Comment: Immature granulocytes(IG's)percentage an d absolute count will include metamyelocytes, myelocytes, and promyelo cytes. Blood smears from CBCs yielding IG's will be scanned manually for concsemaj dannoe. If this scan disagrees with the automated IG or if promyelocytes are not ed, a manual differential will be performed. Gemini Gran Abs 0.21 (H) 0.00 - 0.04 x10(3)/[facility] LABORATORY Specimen Anatomical Collection Method Collection Time Receive d Time (Source) Location / / Volume Laterality Blood 03/03/2022 4:34 AM 2 4:42 EDT AM EDT Resulting Agency Comment Spec In Lab Collette Valente MD HEMATOLOGY ORDERABLES Performing Organization Address City/State/[place] [address] (ABNORMAL) Hemogram (03/03/2022 4:34 AM EDT) Analysis Performed At Patho logist Time Signature WBC 6.5 4.0 - 9.5 [facility] x[facility](3[facility] LABORATORY RBC 3.12 (L) 4.58 - [facility] 5.54 [facility] x10(6)/[facility]ORATORY Hemoglobin 9.1 (L) 13.7 - [facility] 16.5 g/dL [facility] Hematocrit 26.8 (L) 40.5 - [facility] 48.5 % [facility] MCV 85.9 82.9 - [facility] 93.1 [facility] LABORATORY MCH 29.2 27.5 - [facility] 32.1 pg [facility] MCHC 34.0 32.0 - [facility] 35.7 g/dL [facility] Platelets 276 145 - 357 [facility] x10(3)/[facility] LABORATORY RDWSD 50.6 (H) 36.0 - [facility] 45.0 [facility] LABORATORY RDWCV 16.1 (H) 11.4 - [facility] 13.8 % [facility] MPV 7.8 7.6 - 12.9 [facility] nRBC % Auto 0.0 % [facility] nRBC Abs Auto 0.000 0.000 - [facility] 0.000 [facility] x10(3)/[facility] LABORATORY Specimen Anatomical Collection Method Collection Time Receive d Time (Source) Location / / Volume Laterality Blood 03/03/2022 4:34 AM 2 4:42 EDT AM EDT Resulting Agency Comment Spec In Lab Collette Valente MD HEMATOLOGY ORDERABLES Performing Organization Address City/State/[place] [address] Magnesium (03/03/2022 4:34 AM EDT) athologist Signature Magnesium 0.80 0.69 - 1.07 [facility] mmol/L [facility] Specimen Anatomical Collection Method Collection Time Receive d Time (Source) Location / / Volume Laterality Blood 03/03/2022 4:34 AM 2 4:42 EDT AM EDT Resulting Agency Comment Spec In Lab Jayme Armstrong MD CHEMISTRY ORDERABLES Performing Organization Address City/[facility]/ZIP Code Phon e Number [address] (ABNORMAL) Phosphorus (03/03/2022 4:34 AM EDT) athologist Signature Phosphorus 5.1 (H) 2.5 - 4.5 [facility] mg[facility]dL [facility] Specimen Anatomical Collection Method Collection Time Receive d Time (Source) Location / / Volume Laterality Blood 03/03/2022 4:34 AM 2 4:42 EDT AM EDT Resulting Agency Comment Spec In Lab Jayme Armstrong MD CHEMISTRY ORDERABLES Performing Organization Address City/[facility] [place] [address] (ABNORMAL) Basic Metabolic Panel (non-fasting) (03/03/2022 4:34 AM EDT) athologist Signature Glucose Lvl 105 65 - 199 [facility] mg/dL [facility] Comment: Diabetes: >=200 mg/dL plus symp toms BUN 28 (H) 10 - 20 mg/dL [facility] Creatinine 1.27 0.80 - 1.50 mg/dL [facility] Sodium 142 135 - 145 mmol/L [facility] Potassium 3.8 3.5 - 5.0 mmol/L [facility] Comment: Please note: ??Patients with WBC >100,00 0 may have falsely elevated Potassium levels. ??For accurate Potassium quantif ication in these patients send serum separator tube (gold top) for subsequent determinations. ??Contact the Clinical Chemistry Laboratory if there are any qu estions. Chloride 104 98 - 107 mmol/L [facility] CO2 25 22 - 31 mmol/L [facility] Anion Gap 13 5 - 15 mmol/L [facility] Calcium 9.0 8.5 - 10.5 mg/dL [facility] Estimated GFR 78 >=60 mL/min/1.73 m?? [facility] Comment: This patient's estimated GFR [...] (Source) Location / / Volume Laterality Blood 03/03/2022 4:34 AM 4:42 EDT AM EDT Resulting Agency Comment Spec In Lab Jayme Armstrong MD CHEMISTRY ORDERABLES Performing Organization Address City/State/[place] [address] Albumin Level (03/02/2022 4:23 AM EDT) athologist Signature Albumin 3.3 3.2 - 5.2 [facility] g/dL [facility] Specimen Anatomical Collection Method Collection Time Receive d Time (Source) Location / / Volume Laterality Blood Venous Draw / 03/02/2022 4:23 AM 03/02/20 4:53 Unknown EDT AM EDT Resulting Agency Comment Spec In Lab Nancy Chahal MD CHEMISTRY ORDERABLES Performing Organization Address City/State/Z[place] [address] (ABNORMAL) Basic Metabolic Panel (non-fasting) (03/02/2022 4:23 AM EDT) P athologist Signature Glucose Lvl 99 65 - 199 [facility] mg/dL [facility] Comment: Diabetes: >=200 mg/dL plus symp toms BUN 32 (H) 10 - 20 mg/dL [facility] Creatinine 1.33 0.80 - 1.50 mg/dL [facility] Sodium 138 135 - 145 mmol/L [facility] Potassium 4.1 3.5 - 5.0 mmol/L [facility] Comment: Please note: ??Patients with WBC >100,00 0 may have falsely elevated Potassium levels. ??For accurate Potassium quantif ication in these patients send serum separator tube (gold top) for subsequent determinations. ??Contact the Clinical Chemistry Laboratory if there are any qu estions. Chloride 100 98 - 107 mmol/L [facility] CO2 25 22 - 31 mmol/L [facility] Anion Gap 13 5 - 15 mmol/L [facility] Calcium 9.0 8.5 - 10.5 mg/dL [facility] Estimated GFR 74 >=60 mL/min/1.73 m?? [facility] Comment: This patient's estimated GFR [...] (Source) Location / / Volume Laterality Blood 03/02/2022 4:23 AM 4:50 EDT AM EDT Resulting Agency Comment Spec In Lab Jayme Armstrong MD CHEMISTRY ORDERABLES Performing Organization Address City/State/ZIP [place] [address] (ABNORMAL) Differential, Automated (03/01/2022 2:00 AM EDT) [facility] Method Time Signature Neutrophils % 65.1 % [facility] Neutr Abs (ANC) 6.08 1.70 - [facility] 6.10 [facility] x10(3)/[facility] LABORATORY Lymphocytes % 15.0 % [facility] Lymphocytes Abs 1.4 0.9 - 3.2 [facility] x10(3)/[facility] LABORATORY Monocytes % 12.0 % [facility] Monocyte Abs 1.1 (H) 0.3 - 0.9 [facility] x10(3)/[facility] LABORATORY Eosinophils % 5.4 % [facility] Eosinophils Abs 0.5 (H) 0.0 - 0.4 [facility] x10(3)/[facility] LABORATORY Basophils % 0.6 % [facility] Basophils Abs 0.1 0.0 - 0.1 [facility] x10(3)/[facility] LABORATORY Immature Gran % 1.90 % [facility] Comment: Immature granulocytes(IG's)percentage an d absolute count will include metamyelocytes, myelocytes, and promyelo cytes. Blood smears from CBCs yielding IG's will be scanned manually for concor dance. If this scan disagrees with the automated IG or if promyelocytes are not ed, a manual differential will be performed. Gemini Gran Abs 0.18 (H) 0.00 - 0.04 x10(3)/[facility] LABORATORY Specimen Anatomical Collection Method Collection Time Receive d Time (Source) Location / / Volume Laterality Blood 03/01/2022 2:00 AM 2:03 EDT AM EDT Resulting Agency Comment Spec In Lab Veto Hidalgo MD HEMATOLOGY ORDERABLES Performing Organization Address City/[facility]/ZIP [place] [address] (ABNORMAL) Hemogram (03/01/2022 2:00 AM EDT) Analysis Performed At Patho logist Time Signature WBC 9.3 4.0 - 9.5 [facility] x10(3)/[facility] LABORATORY RBC 2.92 (L) 4.58 - [facility] [place] 5.54 [facility] x10(6)/[facility] LABORATORY Hemoglobin 8.5 (L) 13.7 - [facility] 16.[facility] g/dL [facility] Hematocrit 25.5 (L) 40.5 - [facility] 48.5 % [facility] MCV 87.3 82.9 - [facility] 93.1 [facility] LABORATORY MCH 29.1 27.5 - [facility] 32.1 pg [facility] MCHC 33.3 32.0 - [facility] 35.7 g/dL [facility] Platelets 288 145 - 357 [facility] x10(3)/[facility] LABORATORY RDWSD 52.2 (H) 36.0 - [facility] 45.0 [facility] LABORATORY RDWCV 16.4 (H) 11.4 - [facility] 13.8 % [facility] MPV 8.0 7.6 - 12.9 [facility] LABORATORY nRBC % Auto 0.0 % [facility] nRBC Abs Auto 0.000 0.000 - [facility] 0.000 [facility] x10(3)/[facility] LABORATORY Specimen Anatomical Collection Method Collection Time Receive d Time (Source) Location / / Volume Laterality Blood 03/01/2022 2:00 AM 2 2:03 EDT AM EDT Resulting Agency Comment Spec In Lab Veto Hidalgo MD HEMATOLOGY ORDERABLES Performing Organization Address City/State/ZIP [place] [address] Magnesium (03/01/2022 2:00 AM EDT) P athologist Signature Magnesium 0.77 0.69 - 1.07 [facility] mmol/L [facility] Specimen Anatomical Collection Method Collection Time Receive d Time (Source) Location / / Volume Laterality Blood 03/01/2022 2:00 AM 2 2:03 EDT AM EDT Resulting Agency Comment Spec In Lab Jayme Armstrong MD CHEMISTRY ORDERABLES Performing Organization Address City/State/ZIP Code Phon e Number [address] (ABNORMAL) Phosphorus (03/01/2022 2:00 AM EDT) athologist Signature Phosphorus 4.8 (H) 2.5 - 4.5 [facility] Specimen Anatomical Collection Method Collection Time Receive d Time (Source) Location / / Volume Laterality Blood 03/01/2022 2:00 AM 2 2:03 EDT AM EDT Resulting Agency Comment Spec In Lab Jayme Armstrong MD CHEMISTRY ORDERABLES Performing Organization Address City/[facility]/[place]IP [place] [address] (ABNORMAL) Basic Metabolic Panel (non-fasting) (03/01/2022 2:00 AM EDT) athologist Signature Glucose Lvl 106 65 - 199 [facility] mg/dL [facility] Comment: Diabetes: >=200 mg/dL plus symp toms BUN 38 (H) 10 - 20 mg/dL [facility] LABORATORY Creatinine 1.73 (H) 0.80 - 1.50 mg/dL [facility] LABORATORY Sodium 140 135 - 145 mmol/L [facility] LABORATORY Potassium 4.3 3.5 - 5.0 mmol/L [facility] LABORATORY Comment: Please note: ??Patients with WBC >100,00 0 may have falsely elevated Potassium levels. ??For accurate Potassium quantif ication in these patients send serum separator tube (gold top) for subsequent determinations. ??Contact the Clinical Chemistry Laboratory if there are any qu estions. Chloride 102 98 - 107 mmol/L [facility] LABORATORY CO2 24 22 - 31 mmol/L [facility] LABOR[facility] Anion Gap 14 5 - 15 mmol/L [facility] LABORATORY Calcium 9.2 8.5 - 10.5 mg/dL [facility] LABORATORY Estimated GFR 54 (L) >=60 mL/min/1.73 m?? [facility]OR[facility] Comment: This patient's estimated GFR [...] Organization Address City/State/[place] [address] (ABNORMAL) Ferritin (03/01/2022 2:00 AM EDT) P athologist Signature Ferritin 693 (H) 30 - 400 [facility]/mL [facility] Comment: Pediatric reference ranges [place] [facility] [place] interpret with caution. Reference [...] Organization Address City/State/ZIP Code Phon e Number [address] (ABNORMAL) Iron and TIBC (03/01/2022 2:00 AM EDT) Analysis Performed At Patho logist Time Signature Iron 21 (L) 45 - 160 [facility] mcg/dL [facility]OR[facility] TIBC 185 (L) 250 - 450 [facility] LABORATORY Iron Saturation 11 (L) 20 - 50 % [facility] LABORATORY Specimen Anatomical Collection Method Collection Time Receive d Time (Source) Location / / Volume Laterality Blood 03/01/2022 2:00 AM 2 2:03 EDT AM EDT Resulting Agency Comment Spec In Lab Allison Kelly MD CHEMISTRY ORDERABLES Performing Organization Address City/State/ZIP [place] [address] (ABNORMAL) Basic Metabolic Panel (non-fasting) (02/28/2022 3:43 AM EDT) athologist Signature Glucose Lvl 110 65 - 199 [facility] mg/dL [facility] Comment: Diabetes: >=200 mg/dL plus symp toms BUN 44 (H) 10 - 20 mg/dL [facility] LABORATORY Creatinine 1.92 (H) 0.80 - 1.50 mg/dL [facility] LABOR[facility] Sodium 138 135 - 145 mmol/L [facility] LABORATORY Potassium 4.3 3.5 - 5.0 mmol/L [facility] LABORATORY Comment: Please note: ??Patients with WBC >100,00 0 may have falsely elevated Potassium levels. ??For accurate Potassium quantif ication in these patients send serum separator tube (gold top) for subsequent determinations. ??Contact the Clinical Chemistry Laboratory if there are any qu estions. Chloride 103 98 - 107 mmol/L [facility]ORATORY CO2 24 22 - 31 mmol/L [facility]OR[facility] Anion Gap 11 5 - 15 mmol/L [facility] LABORATORY Calcium 9.1 8.5 - 10.5 mg/dL [facility] LABORATORY Estimated GFR 47 (L) >=60 mL/min/1.73 m?? [facility] Comment: This patient's estimated GFR [...] (Source) Location / / Volume Laterality Blood 02/28/2022 3:43 AM 3:54 EDT AM EDT Resulting Agency Comment Spec In Lab Jayme Armstrong MD CHEMISTRY ORDERABLES Performing Organization Address City/State/ZIP [place] [address] (ABNORMAL) Differential, Automated (02/27/2022 4:36 AM EDT) athologist Signature Neutrophils % 55.6 % [facility] LABORATORY Neutr Abs (ANC) 3.68 1.70 - [facility] 6.10 [facility] x10(3)/[facility] LABORATORY Lymphocytes % 21.3 % [facility] LABORATORY Lymphocytes Abs 1.4 0.9 - 3.2 [facility] x10(3)/[facility] LABORATORY Monocytes % 11.8 % [facility] LABORATORY Monocyte Abs 0.8 0.3 - 0.9 [facility] x10(3)/[facility] LABORATORY Eosinophils % 5.9 % [facility] LABORATORY Eosinophils Abs 0.4 0.0 - 0.4 [facility] x10(3)/[facility] LABORATORY Basophils % 0.9 % [facility] LABORATORY Basophils Abs 0.1 0.0 - 0.1 [facility] x10(3)/[facility] LABORATORY Immature Gran % 4.50 % [facility] LABORATORY Comment: Immature granulocytes(IG's)percentage an d absolute count will include metamyelocytes, myelocytes, and promyelo cytes. Blood smears from CBCs yielding IG's will be scanned manually for concor dance. If this scan disagrees with the automated IG or if promyelocytes are not ed, a manual differential will be performed. Gemini Gran Abs 0.30 (H) 0.00 - 0.04 x10(3)/[facility] LABORATORY Specimen Anatomical Collection Method Collection Time Receive d Time (Source) Location / / Volume Laterality Blood 02/27/2022 4:36 AM 4:48 EDT AM EDT Resulting Agency Comment Spec In Lab Veto Hidalgo MD HEMATOLOGY ORDERABLES Performing Organization Address City/State/ZIP [place] [address] (ABNORMAL) Hemogram (02/27/2022 4:36 AM EDT) Analysis Performed At Patho logist Time Signature WBC 6.6 4.0 - 9.5 [facility] x10(3)/[facility] LABORATORY RBC 2.74 (L) 4.58 - [facility] M[facility] 5.54 [facility] x10(6)/[facility] LABORATORY Hemoglobin 8.0 (L) 13.7 - [facility] 16.5 g/dL [facility] Hematocrit 24.7 (L) 40.5 - [facility] 48.5 % [facility] MCV 90.1 82.9 - [facility] 93.1 [facility] LABORATORY MCH 29.2 27.5 - [facility] 32.1 pg [facility] MCHC 32.4 32.0 - [facility] 35.7 g/dL [facility] Platelets 267 145 - 357 [facility] x10(3)/[facility] LABORATORY RDWSD 56.6 (H) 36.0 - [facility] [employer] 45.0 [facility] LABORATORY RDWCV 17.2 (H) 11.4 - [facility] [employer] 13.8 % [facility] LABORATORY MPV 8.1 7.6 - 12.9 [facility] LABORATORY nRBC % Auto 0.0 % [facility] LABORATORY nRBC Abs Auto 0.000 0.000 - [facility] 0.000 [facility] x10(3)/[facility] LABORATORY Specimen Anatomical Collection Method Collection Time Receive d Time (Source) Location / / Volume Laterality Blood 02/27/2022 4:36 AM 2 4:48 EDT AM EDT Resulting Agency Comment Spec In Lab Veto Hidalgo MD HEMATOLOGY ORDERABLES Performing Organization Address City/[facility]/ZIP Code Phon e Number [address] Magnesium (02/27/2022 4:36 AM EDT) P athologist Signature Magnesium 0.74 0.69 - 1.07 [facility] mmol/L [facility] Specimen Anatomical Collection Method Collection Time Receive d Time (Source) Location / / Volume Laterality Blood 02/27/2022 4:36 AM 2 4:48 EDT AM EDT Resulting Agency Comment Spec In Lab Jayme Armstrong MD CHEMISTRY ORDERABLES Performing Organization Address City/[facility]/ZIP Code Phon e Number [address] Phosphorus (02/27/2022 4:36 AM EDT) athologist Signature Phosphorus 4.5 2.5 - 4.5 [facility] mg/dL [facility] Specimen Anatomical Collection Method Collection Time Receive d Time (Source) Location / / Volume Laterality Blood 02/27/2022 4:36 AM 2 4:48 EDT AM EDT Resulting Agency Comment Spec In Lab Jayme Armstrong MD CHEMISTRY ORDERABLES Performing Organization Address City/[facility]/[place]IP [facility] [place] [address] (ABNORMAL) Basic Metabolic Panel (non-fasting) (02/27/2022 4:36 AM EDT) P athologist Signature Glucose Lvl 108 65 - 199 [facility] mg/dL [facility] Comment: Diabetes: >=200 mg/dL plus symp toms BUN 57 (H) 10 - 20 mg/dL [facility] LABORATORY Creatinine 2.29 (H) 0.80 - 1.50 mg/dL [facility] LABORATORY Sodium 142 135 - 145 mmol/L [facility] LABORATORY Potassium 4.6 3.5 - 5.0 mmol/L [facility] LABORATORY Comment: Please note: ??Patients with WBC >100,00 0 may have falsely elevated Potassium levels. ??For accurate Potassium quantif ication in these patients send serum separator tube (gold top) for subsequent determinations. ??Contact the Clinical Chemistry Laboratory if there are any qu estions. Chloride 105 98 - 107 mmol/L [facility] LABORATORY CO2 24 22 - 31 mmol/L [facility] LABORATORY Anion Gap 13 5 - 15 mmol/L [facility] LABORATORY Calcium 8.7 8.5 - 10.5 mg/dL [facility] LABORATORY Estimated GFR 38 (L) >=60 mL/min/1.73 m?? [facility] Comment: This patient's estimated GFR [...] (Source) Location / / Volume Laterality Blood 02/27/2022 4:36 AM 2 4:48 EDT AM EDT Resulting Agency Comment Spec In Lab Jayme Armstrong MD CHEMISTRY ORDERABLES Performing Organization Address City/State/ZIP [place] [address] (ABNORMAL) Basic Metabolic Panel (non-fasting) (02/26/2022 5:30 AM EDT) P athologist Signature Glucose Lvl 101 65 - 199 [facility] mg/dL [facility] Comment: Diabetes: >=200 mg/dL plus symp toms BUN 60 (H) 10 - 20 mg/dL [facility] LABORATORY Creatinine 2.39 (H) 0.80 - 1.50 mg/dL [facility] LABOR[facility] Sodium 142 135 - 145 mmol/L [facility] LABORATORY Potassium 4.4 3.5 - 5.0 mmol/L [facility] LABORATORY Comment: Please note: ??Patients with WBC >100,00 0 may have falsely elevated Potassium levels. ??For accurate Potassium quantif ication in these patients send serum separator tube (gold top) for subsequent determinations. ??Contact the Clinical Chemistry Laboratory if there are any qu estions. Chloride 105 98 - 107 mmol/L [facility] LABORATORY CO2 23 22 - 31 mmol/L [facility] LABOR[facility]ORY Anion Gap 14 5 - 15 mmol/L [facility] LABORATORY Calcium 8.7 8.5 - 10.5 mg/dL [facility] LABORATORY Estimated GFR 36 (L) >=60 mL/min/1.73 m?? [facility] Comment: This patient's estimated GFR [...] (Source) Location / / Volume Laterality Blood 02/26/2022 5:30 AM 2 5:51 EDT AM EDT Resulting Agency Comment Spec In Lab Jayme Armstrong MD CHEMISTRY ORDERABLES Performing Organization Address City/State/ZIP [place] [address] PTH (02/25/2022 5:30 AM EDT) athologist Signature PTH 65 15 - 65 [facility] pg/mL [facility] Specimen Anatomical Collection Method Collection Time Receive d Time (Source) Location / / Volume Laterality Blood Venous Draw / 02/25/2022 5:30 AM 02/26/20 22 Unknown EDT 12:09 PM EDT Resulting Agency Comment Spec In Lab Tex Robles MD CHEMISTRY ORDERABLES Performing Organization Address City/State/ZIP [place] [address] (ABNORMAL) Differential, Automated (02/25/2022 5:30 AM EDT) [facility] Method Time Signature Neutrophils % 67.3 % [facility] LABORATORY Neutr Abs (ANC) 6.38 (H) 1.70 - [facility] 6.10 [facility] x10(3)/[facility] LABORATORY Lymphocytes % 18.9 % [facility] LABORATORY Lymphocytes Abs 1.8 0.9 - 3.2 [facility] x10(3)/[facility] LABORATORY Monocytes % 8.7 % [facility] LABORATORY Monocyte Abs 0.8 0.3 - 0.9 [facility] x10(3)/[facility] LABORATORY Eosinophils % 1.8 % [facility] LABORATORY Eosinophils Abs 0.2 0.0 - 0.4 [facility] x10(3)/[facility] LABORATORY Basophils % 0.5 % [facility] LABORATORY Basophils Abs 0.0 0.0 - 0.1 [facility] x10(3)/[facility] LABORATORY Immature Gran % 2.80 % [facility] LABORATORY Comment: Immature granulocytes(IG's)percentage an d absolute count will include metamyelocytes, myelocytes, and promyelo cytes. Blood smears from CBCs yielding IG's will be scanned manually for concor dance. If this scan disagrees with the automated IG or if promyelocytes are not ed, a manual differential will be performed. Gemini Gran Abs 0.27 (H) 0.00 - 0.04 x10(3)/[facility] LABORATORY Specimen Anatomical Collection Method Collection Time Receive d Time (Source) Location / / Volume Laterality Blood 02/25/2022 5:30 AM 2 6:31 EDT AM EDT Resulting Agency Comment Spec In Lab Nancy Chahal MD HEMATOLOGY ORDERABLES Performing Organization Address City/State/[place] [address] (ABNORMAL) Hemogram (02/25/2022 5:30 AM EDT) Analysis Performed At Patho logist Time Signature WBC 9.5 4.0 - 9.5 [facility] x10(3)/[facility] LABORATORY RBC 2.63 (L) 4.58 - [facility] 5.54 [facility] x10(6)/[facility] LABORATORY Hemoglobin 7.5 (L) 13.7 - [facility] 16.5 g/dL [facility] Hematocrit 23.5 (L) 40.5 - [facility] 48.5 % [facility] MCV 89.4 82.9 - [facility] 93.1 [facility] LABORATORY MCH 28.5 27.5 - [facility] 32.1 pg [facility] MCHC 31.9 (L) 32.0 - [facility] 35.7 g/dL [facility] Platelets 299 145 - 357 [facility] x10(3)/[facility] LABORATORY RDWSD 55.2 (H) 36.0 - [facility] 45.0 [facility] LABORATORY RDWCV 17.1 (H) 11.4 - [facility] 13.8 % [facility] LABORATORY MPV 8.3 7.6 - 12.9 [facility] LABORATORY nRBC % Auto 0.0 % [facility] LABORATORY nRBC Abs Auto 0.000 0.000 - [facility] 0.000 [facility] x10(3)/[facility] LABORATORY Specimen Anatomical Collection Method Collection Time Receive d Time (Source) Location / / Volume Laterality Blood 02/25/2022 5:30 AM 2 6:31 EDT AM EDT Resulting Agency Comment Spec In Lab Nancy Chahal MD HEMATOLOGY ORDERABLES Performing Organization Address City/State/Z[place] [address] Magnesium (02/25/2022 5:30 AM EDT) athologist Signature Magnesium 0.81 0.69 - 1.07 [facility]/L [facility] Specimen Anatomical Collection Method Collection Time Receive d Time (Source) Location / / Volume Laterality Blood 02/25/2022 5:30 AM 2 6:31 EDT AM EDT Resulting Agency Comment Spec In Lab Jayme Armstrong MD CHEMISTRY ORDERABLES Performing Organization Address City/[facility]/ZIP Code Phon e Number [address] (ABNORMAL) Phosphorus (02/25/2022 5:30 AM EDT) athologist Signature Phosphorus 4.9 (H) 2.5 - 4.5 [facility] mg/dL [facility] Specimen Anatomical Collection Method Collection Time Receive d Time (Source) Location / / Volume Laterality Blood 02/25/2022 5:30 AM 2 6:31 EDT AM EDT Resulting Agency Comment Spec In Lab Jayme Armstrong MD CHEMISTRY ORDERABLES Performing Organization Address City/[facility]/Z[place] [address] (ABNORMAL) Basic Metabolic Panel (non-fasting) (02/25/2022 5:30 AM EDT) athologist Signature Glucose Lvl 104 65 - 199 [facility] mg/dL [facility] Comment: Diabetes: >=200 mg/dL plus symp toms BUN 65 (H) 10 - 20 mg/dL [facility] LABORATORY Creatinine 2.94 (H) 0.80 - 1.50 mg/dL [facility] LABORATORY Sodium 139 135 - 145 mmol/L [facility] LABORATORY Potassium 4.2 3.5 - 5.0 mmol/L [facility] LABORATORY Comment: Please note: ??Patients with WBC >100,00 0 may have falsely elevated Potassium levels. ??For accurate Potassium quantif ication in these patients send serum separator tube (gold top) for subsequent determinations. ??Contact the Clinical Chemistry Laboratory if there are any qu estions. Chloride 102 98 - 107 mmol/L [facility] LABORATORY CO2 23 22 - 31 mmol/L [facility] LABORATORY Anion Gap 14 5 - 15 mmol/L [facility] LABORATORY Calcium 8.4 (L) 8.5 - 10.5 mg/dL [facility] LABORATORY Estimated GFR 28 (L) >=60 mL/min/1.73 m?? [facility] Comment: This patient's estimated GFR [...] (Source) Location / / Volume Laterality Blood 02/25/2022 5:30 AM 6:31 EDT AM EDT Resulting Agency Comment Spec In Lab Jayme Armstrong MD CHEMISTRY ORDERABLES Performing Organization Address City/State/ZIP [place] [address] (ABNORMAL) Basic Metabolic Panel (non-fasting) (02/24/2022 5:45 AM EDT) P athologist Signature Glucose Lvl 102 65 - 199 [facility] mg/dL [facility] Comment: Diabetes: >=200 mg/dL plus symp toms BUN 61 (H) 10 - 20 mg/dL [facility] LABORATORY Creatinine 2.96 (H) 0.80 - 1.50 mg/dL [facility] Comment: result rechecked-sf Sodium 137 135 - 145 mmol/L [facility] LABORATORY Potassium 4.5 3.5 - 5.0 mmol/L [facility] LABORATORY Comment: Please note: ??Patients with WBC >100,00 0 may have falsely elevated Potassium levels. ??For accurate Potassium quantif ication in these patients send serum separator tube (gold top) for subsequent determinations. ??Contact the Clinical Chemistry Laboratory if there are any qu estions. Chloride 102 98 - 107 mmol/L [facility]OR[facility] CO2 22 22 - 31 mmol/L [facility]OR[facility] Anion Gap 13 5 - 15 mmol/L [facility] LABORATORY Calcium 8.3 (L) 8.5 - 10.5 mg/dL [facility] LABORATORY Estimated GFR 28 (L) >=60 mL/min/1.73 m?? [facility] Comment: This patient's estimated GFR [...] (Source) Location / / Volume Laterality Blood 02/24/2022 5:45 AM 2 5:56 EDT AM EDT Resulting Agency Comment Spec In Lab Allison Kelly MD CHEMISTRY ORDERABLES Performing Organization Address City/State/Z[place] [address] SCAN DOC: LAB (02/24/2022 12:00 AM EDT) Narrative This result has an attachment that is no t available. Unknown MEDIA MGR SCAN EXT ORDR/RSLT (ABNORMAL) Differential, Automated (02/23/2022 5:00 AM EDT) athologist Signature Neutrophils % 69.0 % [facility] LABORATORY Neutr Abs (ANC) 5.59 1.70 - [facility] 6.10 [facility] x10(3)/[facility] LABORATORY Lymphocytes % 12.8 % [facility] LABORATORY Lymphocytes Abs 1.0 0.9 - 3.2 [facility] x10(3)/[facility] LABORATORY Monocytes % 10.0 % [facility] LABORATORY Monocyte Abs 0.8 0.3 - 0.9 [facility] x10(3)/[facility] LABORATORY Eosinophils % 2.6 % [facility] LABORATORY Eosinophils Abs 0.2 0.0 - 0.4 [facility] x10(3)/[facility] LABORATORY Basophils % 0.7 % [facility] LABORATORY Basophils Abs 0.1 0.0 - 0.1 [facility] x10(3)/[facility] LABORATORY Immature Gran % 4.90 % [facility] Comment: Immature granulocytes(IG's)percentage an d absolute count will include metamyelocytes, myelocytes, and promyelo cytes. Blood smears from CBCs yielding IG's will be scanned manually for concor dance. If this scan disagrees with the automated IG or if promyelocytes are not ed, a manual differential will be performed. Gemini Gran Abs 0.40 (H) 0.00 - 0.04 x10(3)/[facility] LABORATORY Specimen Anatomical Collection Method Collection Time Receive d Time (Source) Location / / Volume Laterality Blood 02/23/2022 5:00 AM 5:31 EDT AM EDT Resulting Agency Comment Spec In Lab Kaitlyn Rock MD HEMATOLOGY ORDERABLES Performing Organization Address City/State/ZIP [place] [address] (ABNORMAL) Hemogram (02/23/2022 5:00 AM EDT) Analysis Performed At Patho logist Time Signature WBC 8.1 4.0 - 9.5 [facility] x10(3)/[facility] LABORATORY RBC 2.50 (L) 4.58 - [facility] 5.54 [facility] x10(6)/[facility] LABORATORY Hemoglobin 7.0 (L) 13.7 - [facility] 16.5 g/dL [facility] Hematocrit 22.4 (L) 40.5 - [facility] 48.5 % [facility] MCV 89.6 82.9 - [facility] 93.1 [facility] LABORATORY MCH 28.0 27.5 - [facility] 32.1 pg [facility] MCHC 31.3 (L) 32.0 - [facility] 35.7 g/dL [facility] Platelets 300 145 - 357 [facility] x10(3)/[facility] LABORATORY RDWSD 57.0 (H) 36.0 - [facility] 45.0 [facility] LABORATORY RDWCV 17.5 (H) 11.4 - [facility] 13.8 % [facility] MPV 8.4 7.6 - 12.9 [facility] LABORATORY nRBC % Auto 0.0 % [facility] LAB[facility] nRBC Abs Auto 0.000 0.000 - [facility] 0.000 [facility] x10(3)/[facility] LABORATORY Specimen Anatomical Collection Method Collection Time Receive d Time (Source) Location / / Volume Laterality Blood 02/23/2022 5:00 AM 5:31 EDT AM EDT Resulting Agency Comment Spec In Lab Kaitlyn Rock MD HEMATOLOGY ORDERABLES Performing Organization Address City/State/Z[place] [address] (ABNORMAL) Basic Metabolic Panel (non-fasting) (02/23/2022 5:00 AM EDT) P athologist Signature Glucose Lvl 113 65 - 199 [facility] mg/dL [facility] Comment: Diabetes: >=200 mg/dL plus symp toms BUN 59 (H) 10 - 20 mg/dL [facility] LABORATORY Creatinine 3.90 (H) 0.80 - 1.50 mg/dL [facility] Sodium 137 135 - 145 mmol/L [facility]ORATORY Potassium 4.6 3.5 - 5.0 mmol/L [facility] Comment: Please note: ??Patients with WBC >100,00 0 may have falsely elevated Potassium levels. ??For accurate Potassium quantif ication in these patients send serum separator tube (gold top) for subsequent determinations. ??Contact the Clinical Chemistry Laboratory if there are any qu estions. Chloride 102 98 - 107 mmol/L [facility] CO2 24 22 - 31 mmol/L [facility] Anion Gap 11 5 - 15 mmol/L [facility] Calcium 8.3 (L) 8.5 - 10.5 mg/dL [facility] Estimated GFR 20 (L) >=60 mL/min/1.73 m?? [facility] Comment: This patient's estimated GFR [...] (Source) Location / / Volume Laterality Blood 02/23/2022 5:00 AM 2 5:31 EDT AM EDT Resulting Agency Comment Spec In Lab Gela Novak MD CHEMISTRY ORDERABLES Performing Organization Address City/State/Z[place] [address] (ABNORMAL) Phosphorus (02/23/2022 5:00 AM EDT) P athologist Signature Phosphorus 6.2 (H) 2.5 - 4.5 [facility] mg/dL [facility] Specimen Anatomical Collection Method Collection Time Receive d Time (Source) Location / / Volume Laterality Blood 02/23/2022 5:00 AM 2 5:31 EDT AM EDT Resulting Agency Comment Spec In Lab Gela Novak MD CHEMISTRY ORDERABLES Performing Organization Address City/State/ZIP [place] [address] [facility] [address] Magnesium (02/23/2022 5:00 AM EDT) P athologist Signature Magnesium 0.93 0.69 - 1.07 [facility] mmol/L [facility] Specimen Anatomical Collection Method Collection Time Receive d Time (Source) Location / / Volume Laterality Blood 02/23/2022 5:00 AM 5:31 EDT AM EDT Resulting Agency Comment Spec In Lab Gela Novak MD CHEMISTRY ORDERABLES Performing Organization Address City/State/ZIP Code Phon e Number [address] (ABNORMAL) Differential, Automated (02/22/2022 1:08 AM EDT) Patholo gist Method Time Signature Neutrophils % 64.0 % [facility] Neutr Abs (ANC) 5.73 1.70 - [facility] 6.10 [facility] x10(3)/[facility] LABORATORY Lymphocytes % 15.0 % [facility] Lymphocytes Abs 1.3 0.9 - 3.2 [facility] x10(3)/[facility] LABORATORY Monocytes % 10.9 % [facility] Monocyte Abs 1.0 (H) 0.3 - 0.9 [facility] x10(3)/[facility] LABORATORY Eosinophils % 3.0 % [facility] Eosinophils Abs 0.3 0.0 - 0.4 [facility] x10(3)/[facility] LABORATORY Basophils % 0.6 % [facility] Basophils Abs 0.0 0.0 - 0.1 [facility] x10(3)/[facility] LABORATORY Immature Gran % 6.50 % [facility] Comment: Immature granulocytes(IG's)percentage an d absolute count will include metamyelocytes, myelocytes, and promyelo cytes. Blood smears from CBCs yielding IG's will be scanned manually for ny crain. If this scan disagrees with the automated IG or if promyelocytes are not ed, a manual differential will be performed. Gemini Gran Abs 0.58 (H) 0.00 - 0.04 x10(3)/[facility] LABORATORY Specimen Anatomical Collection Method Collection Time Receive d Time (Source) Location / / Volume Laterality Blood 02/22/2022 1:08 AM 2 1:25 EDT AM EDT Resulting Agency Comment Spec In Lab Kaitlyn Rock MD HEMATOLOGY ORDERABLES Performing Organization Address City/State/ZIP [place] [address] (ABNORMAL) Hemogram (02/22/2022 1:08 AM EDT) Analysis Performed At Patho logist Time Signature WBC 8.9 4.0 - 9.5 [facility] x10(3)/[facility] LABORATORY RBC 2.56 (L) 4.58 - [facility] 5.54 [facility] x10(6)/[facility] LABORATORY Hemoglobin 7.3 (L) 13.7 - [facility] 16.5 g/dL [facility] Hematocrit 22.7 (L) 40.5 - [facility] 48.5 % [facility] MCV 88.7 82.9 - [facility] 93.1 [facility] LABORATORY MCH 28.5 27.5 - [facility] 32.1 pg [facility] MCHC 32.2 32.0 - [facility] 35.7 g/dL [facility] Platelets 317 145 - 357 [facility] x10(3)/[facility] LABORATORY RDWSD 58.2 (H) 36.0 - [facility] 45.0 [facility] LABORATORY RDWCV 17.9 (H) 11.4 - [facility] 13.8 % [facility] MPV 8.5 7.6 - 12.9 [facility] LABORATORY nRBC % Auto 0.0 % [facility] nRBC Abs Auto 0.000 0.000 - [facility] 0.000 [facility] x10(3)/[facility] LABORATORY Specimen Anatomical Collection Method Collection Time Receive d Time (Source) Location / / Volume Laterality Blood 02/22/2022 1:08 AM 1:25 EDT AM EDT Resulting Agency Comment Spec In Lab Kaitlyn Rock MD HEMATOLOGY ORDERABLES Performing Organization Address City/State/[place] [address] (ABNORMAL) Basic Metabolic Panel (non-fasting) (02/22/2022 1:08 AM EDT) P athologist Signature Glucose Lvl 95 65 - 199 [facility] mg/dL [facility] Comment: Diabetes: >=200 mg/dL plus symp toms BUN 55 (H) 10 - 20 mg/dL [facility] Creatinine 3.91 (H) 0.80 - 1.50 mg/dL [facility] Sodium 137 135 - 145 mmol/L [facility] LABORATORY Potassium 5.1 (H) 3.5 - 5.0 mmol/L [facility]ORY Comment: Please note: ??Patients with WBC >100,00 0 may have falsely elevated Potassium levels. ??For accurate Potassium quantif ication in these patients send serum separator tube (gold top) for subsequent determinations. ??Contact the Clinical Chemistry Laboratory if there are any qu estions. Chloride 101 98 - 107 mmol/L [facility] CO2 23 22 - 31 mmol/L [facility] Anion Gap 13 5 - 15 mmol/L [facility] Calcium 8.2 (L) 8.5 - 10.5 mg/dL [facility] LABORATORY Estimated GFR 20 (L) >=60 mL/min/1.73 m?? [facility] Comment: This patient's estimated GFR [...] (Source) Location / / Volume Laterality Blood 02/22/2022 1:08 AM 2 1:25 EDT AM EDT Resulting Agency Comment Spec In Lab Gela Novak MD CHEMISTRY ORDERABLES Performing Organization Address City/[facility]/[place] [address] (ABNORMAL) Phosphorus (02/22/2022 1:08 AM EDT) athologist Signature Phosphorus 5.9 (H) 2.5 - 4.5 [facility] mg/dL [facility] Specimen Anatomical Collection Method Collection Time Receive d Time (Source) Location / / Volume Laterality Blood 02/22/2022 1:08 AM 2 1:25 EDT AM EDT Resulting Agency Comment Spec In Lab Gela Novak MD CHEMISTRY ORDERABLES Performing Organization Address City/[facility]/ZIP [place] [address] Magnesium (02/22/2022 1:08 AM EDT) athologist Signature Magnesium 0.90 0.69 - 1.07 [facility] mmol/L [facility] Specimen Anatomical Collection Method Collection Time Receive d Time (Source) Location / / Volume Laterality Blood 02/22/2022 1:08 AM 2 1:25 EDT AM EDT Resulting Agency Comment Spec In Lab Gela Novak MD CHEMISTRY ORDERABLES Performing Organization Address City/[facility]/Z[place] [address] Transfuse RBC (02/21/2022 4:53 PM EDT) Gela Novak MD NURSING TREATMENT ORDERABLES - BLOOD ADMIN Transfuse RBC (02/21/2022 4:53 PM EDT) Gela Novak MD NURSING TREATMENT ORDERABLES - BLOOD ADMIN Type and Screen Validity (02/21/2022 12:40 PM EDT) [facility] Method Time Signature T&S only valid [facility] at [facility] Comment: This Type and Screen result is only valid at the [facility] Specimen Anatomical Collection Method Collection Time Receive d Time (Source) Location / / Volume Laterality Blood 02/21/2022 12:40 02/21/2022 1:12 PM EDT PM EDT Resulting Agency Comment Spec In Lab Melissa Gonzales MD BLOOD BANK ORDERABLES Performing Organization Address City/State/[place] [address] ABORH Recheck Status (02/21/2022 12:40 PM EDT) [facility] Signature ABORH Type Completed [facility] LABORATORY Specimen Anatomical Collection Method Collection Time Receive d Time (Source) Location / / Volume Laterality Blood 02/21/2022 12:40 02/21/2022 1:12 PM EDT PM EDT Resulting Agency Comment Spec In Lab Melissa Gonzales MD BLOOD BANK ORDERABLES Performing Organization Address City/[facility]/[place] [address] Antibody screen (02/21/2022 12:40 PM EDT) [facility] Signature Ab Screen Negative [facility] LABORATORY Expires at 02/24/2022 [facility] [id number] on: [facility] Specimen Anatomical Collection Method Collection Time Receive d Time (Source) Location / / Volume Laterality Blood 02/21/2022 12:40 02/21/2022 1:12 PM EDT PM EDT Resulting Agency Comment Spec In Lab Melissa Gonzales MD BLOOD BANK ORDERABLES Performing Organization Address City/[facility]/[place] [address] ABO/Rh Typing (02/21/2022 12:40 PM EDT) athologist Signature ABORh Type A Pos [facility] Specimen Anatomical Collection Method Collection Time Receive d Time (Source) Location / / Volume Laterality Blood 02/21/2022 12:40 02/21/2022 1:12 PM EDT PM EDT Resulting Agency Comment Spec In Lab Melissa Gonzales MD BLOOD BANK ORDERABLES Performing Organization Address City/[facility]/[place] [address] Prepare RBC (02/21/2022 12:20 PM EDT) athologist Signature Dispensed? Yes [facility] Specimen Anatomical Collection Method Collection Time Receive d Time (Source) Location / / Volume Laterality Blood 02/21/2022 12:20 02/21/2022 PM EDT 12:19 PM EDT Gela Novak MD BLOOD BANK ORDERABLES Performing Organization Address City/[facility]/[place] [address] (ABNORMAL) Albumin Level (02/21/2022 3:38 AM EDT) athologist Signature Albumin 2.3 (L) 3.2 - 5.2 [facility] g/dL [facility] Specimen Anatomical Collection Method Collection Time Receive d Time (Source) Location / / Volume Laterality Blood Venous Draw / 02/21/2022 3:38 AM 02/22/20 22 3:47 Unknown EDT AM EDT Resulting Agency Comment Spec In Lab Bambi Pressley MD CHEMISTRY ORDERABLES Performing Organization Address City/[facility]/[place] [address] (ABNORMAL) Differential, Automated (02/21/2022 3:38 AM EDT) athologist Signature Neutrophils % 67.8 % [facility] Neutr Abs (ANC) 6.03 1.70 - [facility] 6.10 [facility] x10(3)/[facility] LABORATORY Lymphocytes % 13.5 % [facility] Lymphocytes Abs 1.2 0.9 - 3.2 [facility] x10(3)/[facility] LABORATORY Monocytes % 9.4 % [facility] Monocyte Abs 0.8 0.3 - 0.9 [facility] x10(3)/[facility] LABORATORY Eosinophils % 3.1 % [facility] Eosinophils Abs 0.3 0.0 - 0.4 [facility] x10(3)/[facility] LABORATORY Basophils % 0.6 % [facility] Basophils Abs 0.0 0.0 - 0.1 [facility] x10(3)/[facility] LABORATORY Immature Gran % 5.60 % [facility] Comment: Immature granulocytes(IG's)percentage an d absolute count will include metamyelocytes, myelocytes, and promyelo cytes. Blood smears from CBCs yielding IG's will be scanned manually for concor dance. If this scan disagrees with the automated IG or if promyelocytes are not ed, a manual differential will be performed. Gemini Gran Abs 0.50 (H) 0.00 - 0.04 x10(3)/[facility] LABORATORY Specimen Anatomical Collection Method Collection Time Receive d Time (Source) Location / / Volume Laterality Blood 02/21/2022 3:38 AM 2 3:46 EDT AM EDT Resulting Agency Comment Spec In Lab Kaitlyn Rock MD HEMATOLOGY ORDERABLES Performing Organization Address City/State/Z[place] [address] (ABNORMAL) Hemogram (02/21/2022 3:38 AM EDT) Analysis Performed At Patho logist Time Signature WBC 8.9 4.0 - 9.5 [facility] x10(3)/[facility] LABORATORY RBC 2.37 (L) 4.58 - [facility] x10(6)/[facility] LABORATORY Hemoglobin 6.9 (L) 13.7 - [facility] 16.5 g/dL [facility] Hematocrit 21.4 (L) 40.5 - [facility] 48.5 % [facility] MCV 90.3 82.9 - [facility] 93.1 fL [facility] MCH 29.1 27.5 - [facility] 32.1 pg [facility] MCHC 32.2 32.0 - [facility] 35.7 g/dL [facility] Platelets 273 145 - 357 [facility] x10(3)/[facility] LABORATORY RDWSD 50.5 (H) 36.0 - [facility] 45.0 [facility] LABORATORY RDWCV 15.7 (H) 11.4 - [facility] 13.8 % [facility] MPV 8.5 7.6 - 12.9 [facility] LABORATORY nRBC % Auto 0.0 % [facility]ATORY nRBC Abs Auto 0.000 0.000 - [facility] x10(3)/[facility] LABORATORY Specimen Anatomical Collection Method Collection Time Receive d Time (Source) Location / / Volume Laterality Blood 02/21/2022 3:38 AM 3:46 EDT AM EDT Resulting Agency Comment Spec In Lab Kaitlyn Rock MD HEMATOLOGY ORDERABLES Performing Organization Address City/State/Z[place] [address] (ABNORMAL) Basic Metabolic Panel (non-fasting) (02/21/2022 3:38 AM EDT) P athologist Signature Glucose Lvl 96 65 - 199 [facility] mg/dL [facility] Comment: Diabetes: >=200 mg/dL plus symp toms BUN 46 (H) 10 - 20 mg/dL [facility]OR[facility]ORY Creatinine 3.68 (H) 0.80 - 1.50 mg/dL [facility] Sodium 136 135 - 145 mmol/L [facility] LABORATORY Potassium 4.9 3.5 - 5.0 mmol/L [facility]ORY Comment: Please note: ??Patients with WBC >100,00 0 may have falsely elevated Potassium levels. ??For accurate Potassium quantif ication in these patients send serum separator tube (gold top) for subsequent determinations. ??Contact the Clinical Chemistry Laboratory if there are any qu estions. Chloride 101 98 - 107 mmol/L [facility] CO2 26 22 - 31 mmol/L [facility] Anion Gap 9 5 - 15 mmol/L [facility] Calcium 8.1 (L) 8.5 - 10.5 mg/dL [facility] Estimated GFR 22 (L) >=60 mL/min/1.73 m?? [facility] Comment: This patient's estimated GFR [...] Location / / Volume Laterality Blood 02/21/2022 3:38 AM 2 3:46 EDT AM EDT Resulting Agency Comment Spec In Lab Gela Novak MD CHEMISTRY ORDERABLES Performing Organization Address City/State/ZIP Code Phon e Number [address] (ABNORMAL) Phosphorus (02/21/2022 3:38 AM EDT) P athologist Signature Phosphorus 5.1 (H) 2.5 - 4.5 [facility] mg/dL [facility] Specimen Anatomical Collection Method Collection Time Receive d Time (Source) Location / / Volume Laterality Blood 02/21/2022 3:38 AM 2 3:46 EDT AM EDT Resulting Agency Comment Spec In Lab Gela Novak MD CHEMISTRY ORDERABLES Performing Organization Address City/State/ZIP Code Phon e Number [address] Magnesium (02/21/2022 3:38 AM EDT) P athologist Signature Magnesium 0.92 0.69 - 1.07 [facility] mmol/L [facility] Specimen Anatomical Collection Method Collection Time Receive d Time (Source) Location / / Volume Laterality Blood 02/21/2022 3:38 AM 2 3:46 EDT AM EDT Resulting Agency Comment Spec In Lab Gela Novak MD CHEMISTRY ORDERABLES Performing Organization Address City/State/ZIP [place] [address] (ABNORMAL) Differential, Automated (02/20/2022 4:45 AM EDT) [facility] Method Time Signature Neutrophils % 67.8 % [facility] Neutr Abs (ANC) 6.58 (H) 1.70 - [facility] 6.10 [facility] x10(3)/[facility] LABORATORY Lymphocytes % 12.7 % [facility] Lymphocytes Abs 1.2 0.9 - 3.2 [facility] x10(3)/[facility] LABORATORY Monocytes % 9.2 % [facility] Monocyte Abs 0.9 0.3 - 0.9 [facility] x10(3)/[facility] LABORATORY Eosinophils % 3.0 % [facility] Eosinophils Abs 0.3 0.0 - 0.4 [facility] x10(3)/[facility] LABORATORY Basophils % 0.4 % [facility] Basophils Abs 0.0 0.0 - 0.1 [facility] x10(3)/[facility] LABORATORY Immature Gran % 6.90 % [facility] Comment: Immature granulocytes(IG's)percentage an d absolute count will include metamyelocytes, myelocytes, and promyelo cytes. Blood smears from CBCs yielding IG's will be scanned manually for concor dance. If this scan disagrees with the automated IG or if promyelocytes are not ed, a manual differential will be performed. Gemini Gran Abs 0.67 (H) 0.00 - 0.04 x10(3)/[facility] LABORATORY Specimen Anatomical Collection Method Collection Time Receive d Time (Source) Location / / Volume Laterality Blood 02/20/2022 4:45 AM 2 5:02 EDT AM EDT Resulting Agency Comment Spec In Lab Kaitlyn Rock MD HEMATOLOGY ORDERABLES Performing Organization Address City/State/Z[place] [address] (ABNORMAL) Hemogram (02/20/2022 4:45 AM EDT) Analysis Performed At Patho logist Time Signature WBC 9.7 (H) 4.0 - 9.5 [facility] x[facility](3)/[facility] LABORATORY RBC 2.48 (L) 4.58 - [facility] 5.54 [facility] x10(6)/[facility] LABORATORY Hemoglobin 7.2 (L) 13.7 - [facility] 16.5 g/dL [facility] Hematocrit 22.2 (L) 40.5 - [facility] 48.5 % [facility] MCV 89.5 82.9 - [facility] 93.1 [facility] LABORATORY MCH 29.0 27.5 - [facility] 32.1 pg [facility] MCHC 32.4 32.0 - [facility] 35.7 g/dL [facility] Platelets 312 145 - 357 [facility] x[facility](3)/[facility] LABORATORY RDWSD 49.6 (H) 36.0 - [facility] 45.0 [facility] LABORATORY RDWCV 15.4 (H) 11.4 - [facility] 13.8 % [facility] MPV 8.4 7.6 - 12.9 [facility] nRBC % Auto 0.0 % [facility]ORAT[facility] nRBC Abs Auto 0.000 0.000 - [facility] 0.000 [facility] x10(3)/[facility] LABORATORY Specimen Anatomical Collection Method Collection Time Receive d Time (Source) Location / / Volume Laterality Blood 02/20/2022 4:45 AM 5:02 EDT AM EDT Resulting Agency Comment Spec In Lab Kaitlyn Rock MD HEMATOLOGY ORDERABLES Performing Organization Address City/[facility]/ZIP [place] [address] (ABNORMAL) Basic Metabolic Panel (non-fasting) (02/20/2022 4:45 AM EDT) P athologist Signature Glucose Lvl 98 65 - 199 [facility] mg/dL [facility] Comment: Diabetes: >=200 mg/dL plus symp toms BUN 35 (H) 10 - 20 mg/dL [facility] LABORATORY Creatinine 3.27 (H) 0.80 - 1.50 mg/dL [facility] Comment: result rechecked-trb Sodium 136 135 - 145 mmol/L [facility] LABORATORY Potassium 4.7 3.5 - 5.0 mmol/L [facility] LABORATORY Comment: Please note: ??Patients with WBC >100,00 0 may have falsely elevated Potassium levels. ??For accurate Potassium quantif ication in these patients send serum separator tube (gold top) for subsequent determinations. ??Contact the Clinical Chemistry Laboratory if there are any qu estions. Chloride 99 98 - 107 mmol/L [facility] CO2 27 22 - 31 mmol/L [facility] Anion Gap 10 5 - 15 mmol/L [facility] Calcium 7.8 (L) 8.5 - 10.5 mg/dL [facility] LABORATORY Estimated GFR 25 (L) >=60 mL/min/1.73 m?? [facility] Comment: This patient's estimated GFR [...] (Source) Location / / Volume Laterality Blood 02/20/2022 4:45 AM 5:02 EDT AM EDT Resulting Agency Comment Spec In Lab Gela Novak MD CHEMISTRY ORDERABLES Performing Organization Address City/State/Z[place] [address] (ABNORMAL) Phosphorus (02/20/2022 4:45 AM EDT) athologist Signature Phosphorus 4.6 (H) 2.5 - 4.5 [facility] mg/dL [facility] Specimen Anatomical Collection Method Collection Time Receive d Time (Source) Location / / Volume Laterality Blood 02/20/2022 4:45 AM 2 5:02 EDT AM EDT Resulting Agency Comment Spec In Lab Gela Novak MD CHEMISTRY ORDERABLES Performing Organization Address City/State/ZIP Code Phon e Number [address] Magnesium (02/20/2022 4:45 AM EDT) athologist Signature Magnesium 0.83 0.69 - 1.07 [facility] mmol/L [facility] Specimen Anatomical Collection Method Collection Time Receive d Time (Source) Location / / Volume Laterality Blood 02/20/2022 4:45 AM 2 5:02 EDT AM EDT Resulting Agency Comment Spec In Lab Gela Novak MD CHEMISTRY ORDERABLES Performing Organization Address City/[facility]/[place] [address] Duplex for DVT, Arm, Unilat (02/19/2022 3:45 PM EDT) Component Value Ref Test Analysis Performed At Patholo gist Range Method Time Signature VB Text Department: Vascular Surgery Lab VASCUBASE Report Patient: [id number] (AMALIAALIX BARRIOS) CPT: 99352 Referring Physician: GELA NOVAK ?? Phone: Indications: [...] Address City/State/ZIP Code Phon e Number [facility]ASCU[facility] Anaerobic Culture (02/19/2022 9:45 AM EDT) [facility] Method Time Signature Anaerobic No anaerobic [facility] Culture organisms [facility] LABORATORY Specimen Anatomical Collection Method Collection Time Receive d Time (Source) Location / / Volume Laterality Deep Wound STRUCTURE OF LEFT 02/19/2022 9:45 AM 01/30 THIGH / Unknown EDT 10:24 AM EDT Comment: Left leg wound culture Resulting Agency Comment Spec In Lab Floridalma Sandoval MD MICROBIOLOGY - GENERAL ORDER JT Performing Organization Address City/[facility]/[place] [address] (ABNORMAL) Abscess/Wound Aspirate Culture (02/19/2022 9:45 AM EDT) Component Value Ref Test Analysis Performed At [facility] Sajan Range Method Time Signature Abscess/Wound Rare Serratia marcescens M JON Aspirate Rare Pseudomonas aeruginosa [facility] Culture (A) [facility] Gram Stain Moderate Neutrophils JOSH No microorganisms seen. [facility] (A) [facility] Organism Serratia JOSH marcescens (A) [facility]OR[facility] Organism Pseudomonas JOSH aeruginosa (A) [facility] Specimen Anatomical Collection Method [...] Pseudomonas aeruginosa Tobramycin MICROSCAN METHOD Sensitiv e Floridalma Sandoval MD MICROBIOLOGY - GENERAL ORDER JT Performing Organization Address City/State/Z[place] [address] (ABNORMAL) Vitamin D, 25-Hydroxy (02/19/2022 12:27 AM EDT) [facility] Method Time Signature 25-OH Vit D 12 (L) 21 - 100 [facility] Total ng/mL [facility] 25-OH Vit D Deficient [facility] LABORATORY Specimen Anatomical Collection Method Collection Time Receive d Time (Source) Location / / Volume Laterality Blood Venous Draw / 02/19/2022 12:27 02/19/2022 Unknown AM EDT 12:44 AM EDT Resulting Agency Comment Spec In Lab Vidhya Peñaloza MD CHEMISTRY ORDERABLES Performing Organization Address City/[facility]/ZIP Code Phon e Number [place] [phone]OSP[address] LAB[address]ORY [address] (ABNORMAL) Ferritin (02/19/2022 12:27 AM EDT) P athologist Signature Ferritin 855 (H) 30 - 400 [facility] ng/mL [facility] Comment: Pediatric reference ranges not [place] [facility] [place] interpret with caution. Reference ranges for females greater trina n 50 years of age approach values for men, i.e., 30-400 ng/mL. Specimen Anatomical Collection Method Collection Time Receive d Time (Source) Location / / Volume Laterality Blood Venous Draw / 02/19/2022 12:27 02/19/2022 Unknown AM EDT 12:44 AM EDT Resulting Agency Comment Spec In Lab Bambi Pressley MD CHEMISTRY ORDERABLES Performing Organization Address City/[facility]/ZIP [place] [address] (ABNORMAL) Differential, Automated (02/19/2022 12:27 AM EDT) [facility] gist Method Time Signature Neutrophils % 66.5 % [facility] Neutr Abs (ANC) 8.58 (H) 1.70 - [facility] 6.10 [facility] x10(3)/[facility] L LABORATORY Lymphocytes % 11.4 % [facility] Lymphocytes Abs 1.5 0.9 - 3.2 [facility] x10(3)/[facility] LABORATORY Monocytes % 7.6 % [facility] Monocyte Abs 1.0 (H) 0.3 - 0.9 [facility] x[facility](3)/[facility] LABORATORY Eosinophils % 4.0 % [facility] Eosinophils Abs 0.5 (H) 0.0 - 0.4 [facility] x10(3)/[facility] LABORATORY Basophils % 0.5 % [facility] Basophils Abs 0.1 0.0 - 0.1 [facility] x10(3)/[facility] LABORATORY Immature Gran % 10.00 % [facility] Comment: Immature granulocytes(IG's)percentage an d absolute count will include metamyelocytes, myelocytes, and promyelo cytes. Blood smears from CBCs yielding IG's will be scanned manually for concor dance. If this scan disagrees with the automated IG or if promyelocytes are not ed, a manual differential will be performed. Gemini Gran Abs 1.29 (H) 0.00 - 0.04 x10(3)/[facility] LABORATORY Specimen Anatomical Collection Method Collection Time Receive d Time (Source) Location / / Volume Laterality Blood 02/19/2022 12:27 02/19/2022 AM EDT 12:33 AM EDT Resulting Agency Comment Spec In Lab Collette Dye MD HEMATOLOGY ORDERABLES Performing Organization Address City/State/ZIP [place] [address] (ABNORMAL) Hemogram (02/19/2022 12:27 AM EDT) Analysis Performed At Patho logist Time Signature WBC 12.9 (H) 4.0 - 9.5 [facility] x10(3)/[facility] LABORATORY RBC 2.44 (L) 4.58 - [facility] 5.54 [facility] x10(6)/[facility] LABORATORY Hemoglobin 7.1 (L) 13.7 - [facility] 16.5 g/dL [facility] Hematocrit 21.9 (L) 40.5 - [facility] 48.5 % [facility] MCV 89.8 82.9 - [facility] 93.1 [facility] LABORATORY MCH 29.1 27.5 - [facility] 32.1 pg [facility] MCHC 32.4 32.0 - [facility] 35.7 g/dL [facility] Platelets 320 145 - 357 [facility] x10(3)/[facility] LABORATORY RDWSD 51.8 (H) 36.0 - J[facility] 45.0 [facility] LABORATORY RDWCV 15.7 (H) 11.4 - [facility] 13.8 % [facility] MPV 8.7 7.6 - 12.9 [facility] LABORATORY nRBC % Auto 0.0 % [facility] nRBC Abs Auto 0.000 0.000 - [facility] 0.000 [facility] x10(3)/[facility] LABORATORY Specimen Anatomical Collection Method Collection Time Receive d Time (Source) Location / / Volume Laterality Blood 02/19/2022 12:27 02/19/2022 AM EDT 12:33 AM EDT Resulting Agency Comment Spec In Lab Collette Dye MD HEMATOLOGY ORDERABLES Performing Organization Address City/State/ZIP [place] [address] (ABNORMAL) Basic Metabolic Panel (non-fasting) (02/19/2022 12:27 AM EDT) athologist Signature Glucose Lvl 100 65 - 199 [facility] mg/dL [facility] Comment: Diabetes: >=200 mg/dL plus symp toms BUN 49 (H) 10 - 20 mg/dL [facility] Creatinine 4.47 (H) 0.80 - 1.50 mg/dL [facility] Sodium 133 (L) 135 - 145 mmol/L [facility] Potassium 4.6 3.5 - 5.0 mmol/L [facility] Comment: Please note: ??Patients with WBC >100,00 0 may have falsely elevated Potassium levels. ??For accurate Potassium quantif ication in these patients send serum separator tube (gold top) for subsequent determinations. ??Contact the Clinical Chemistry Laboratory if there are any qu estions. Chloride 97 (L) 98 - 107 mmol/L [facility] CO2 24 22 - 31 mmol/L [facility] Anion Gap 12 5 - 15 mmol/L [facility] Calcium 7.8 (L) 8.5 - 10.5 mg/dL [facility] Estimated GFR 17 (L) >=60 mL/min/1.73 m?? [facility] Comment: This patient's estimated GFR [...] Novak MD CHEMISTRY ORDERABLES Performing Organization Address City/State/ZIP Code Phon e Number [address] (ABNORMAL) Phosphorus (02/19/2022 12:27 AM EDT) P athologist Signature Phosphorus 5.9 (H) 2.5 - 4.5 [facility] mg/dL [facility] Specimen Anatomical Collection Method Collection Time Receive d Time (Source) Location / / Volume Laterality Blood 02/19/2022 12:27 02/19/2022 AM EDT 12:33 AM EDT Resulting Agency Comment Spec In Lab Gela Novak MD CHEMISTRY ORDERABLES Performing Organization Address City/State/ZIP Code Phon e Number [address] Magnesium (02/19/2022 12:27 AM EDT) P athologist Signature Magnesium 0.84 0.69 - 1.07 [facility] mmol/L [facility] Specimen Anatomical Collection Method Collection Time Receive d Time (Source) Location / / Volume Laterality Blood 02/19/2022 12:27 02/19/2022 AM EDT 12:33 AM EDT Resulting Agency Comment Spec In Lab Gela Novak MD CHEMISTRY ORDERABLES Performing Organization Address City/[facility]/[place] [address] Hepatitis B Surface Antigen (02/19/2022 12:27 AM EDT) Analysis Performed At [facility] logist Time Signature HepB Surface Negative Negative [facility] LABORATORY Specimen Anatomical Collection Method Collection Time Receive d Time (Source) Location / / Volume Laterality Blood 02/19/2022 12:27 02/19/2022 AM EDT 12:33 AM EDT Resulting Agency Comment Spec In Lab Gela Novak MD CHEMISTRY ORDERABLES Performing Organization Address City/[facility]/ZIP Code Phon e Number [address] Scan, Peripheral Blood (02/18/2022 4:01 AM EDT) [facility] Sajan Method Time Signature Plat Estimate Normal [facility] RBC Morphology Abnormal [facility] Ovalocytes 1-5 /HPF [facility] Stippled RBCs Present >1/HPF [facility] Specimen Anatomical Collection Method Collection Time Receive d Time (Source) Location / / Volume Laterality Blood 02/18/2022 4:01 AM 4:16 EDT AM EDT Resulting Agency Comment Spec In Lab Collette Dye MD HEMATOLOGY ORDERABLES Performing Organization Address City/[facility]/[place] [address] (ABNORMAL) Differential, Automated (02/18/2022 4:01 AM EDT) [facility] Sajan Method Time Signature Neutrophils % 70.4 % [facility] Neutr Abs (ANC) 10.70 (H) 1.70 - [facility] 6.10 [facility] x10(3)/[facility] LABORATORY Lymphocytes % 8.0 % [facility] Lymphocytes Abs 1.2 0.9 - 3.2 [facility] x10(3)/[facility] LABORATORY Monocytes % 7.7 % [facility] Monocyte Abs 1.2 (H) 0.3 - 0.9 [facility] x10(3)/[facility] LABORATORY Eosinophils % 3.2 % [facility] Eosinophils Abs 0.5 (H) 0.0 - 0.4 [facility] x10(3)/[facility] LABORATORY Basophils % 0.4 % [facility] Basophils Abs 0.1 0.0 - 0.1 [facility] x10(3)/[facility] LABORATORY Immature Gran % 10.30 % [facility] Comment: Immature granulocytes(IG's)percentage an d absolute count will include metamyelocytes, myelocytes, and promyelo cytes. Blood smears from CBCs yielding IG's will be scanned manually for concor dance. If this scan disagrees with the automated IG or if promyelocytes are not ed, a manual differential will be performed. Gemini Gran Abs 1.56 (H) 0.00 - 0.04 x10(3)/[facility] LABORATORY Specimen Anatomical Collection Method Collection Time Receive d Time (Source) Location / / Volume Laterality Blood 02/18/2022 4:01 AM 4:16 EDT AM EDT Resulting Agency Comment Spec In Lab Collette Dye MD HEMATOLOGY ORDERABLES Performing Organization Address City/State/Z[place] [address] (ABNORMAL) Hemogram (02/18/2022 4:01 AM EDT) Analysis Performed At Patho logist Time Signature WBC 15.2 (H) 4.0 - 9.5 [facility] x10(3)/[facility] LABORATORY RBC 2.44 (L) 4.58 - [facility] 5.54 [facility] x10(6)/[facility] LABORATORY Hemoglobin 7.0 (L) 13.7 - [facility] 16.5 g/dL [facility] Hematocrit 22.0 (L) 40.5 - [facility] 48.5 % [facility] MCV 90.2 82.9 - [facility] fL [facility] MCH 28.7 27.5 - [facility] 32.1 pg [facility] MCHC 31.8 (L) 32.0 - [facility] 35.7 g/dL [facility] Platelets 325 145 - 357 [facility] x10(3)/[facility] LABORATORY RDWSD 51.1 (H) 36.0 - [facility] 45.0 [facility] LABORATORY RDWCV 15.5 (H) 11.4 - [facility] 13.8 % [facility] MPV 8.8 7.6 - 12.9 [facility] LABORATORY nRBC % Auto 0.0 % [facility] nRBC Abs Auto 0.000 0.000 - [facility] 0.000 [facility] x10(3)/[facility] LABORATORY Specimen Anatomical Collection Method Collection Time Receive d Time (Source) Location / / Volume Laterality Blood 02/18/2022 4:01 AM 4:16 EDT AM EDT Resulting Agency Comment Spec In Lab Collette Dye MD HEMATOLOGY ORDERABLES Performing Organization Address City/State/Z[place] [address] (ABNORMAL) Basic Metabolic Panel (non-fasting) (02/18/2022 4:01 AM EDT) P athologist Signature Glucose Lvl 98 65 - 199 [facility] mg/dL [facility] Comment: Diabetes: >=200 mg/dL plus symp toms BUN 36 (H) 10 - 20 mg/dL [facility] Creatinine 3.80 (H) 0.80 - 1.50 mg/dL [facility] Comment: result rechecked-trb Sodium 132 (L) 135 - 145 mmol/L [facility] Potassium 4.3 3.5 - 5.0 mmol/L [facility] Comment: Please note: ??Patients with WBC >100,00 0 may have falsely elevated Potassium levels. ??For accurate Potassium quantif ication in these patients send serum separator tube (gold top) for subsequent determinations. ??Contact the Clinical Chemistry Laboratory if there are any qu estions. Chloride 97 (L) 98 - 107 mmol/L [facility] CO2 28 22 - 31 mmol/L [facility] Anion Gap 7 5 - 15 mmol/L [facility] Calcium 7.9 (L) 8.5 - 10.5 mg/dL [facility]OR[facility]ORY Estimated GFR 21 (L) >=60 mL/min/1.73 m?? [facility] Comment: This patient's estimated GFR [...] / Volume Laterality Blood 02/18/2022 4:01 AM 2 4:17 EDT AM EDT Resulting Agency Comment Spec In Lab Gela Novak MD CHEMISTRY ORDERABLES Performing Organization Address City/[facility]/ZIP Code Phon e Number [address] (ABNORMAL) Phosphorus (02/18/2022 4:01 AM EDT) P athologist Signature Phosphorus 4.9 (H) 2.5 - 4.5 [facility] mg/dL [facility] Specimen Anatomical Collection Method Collection Time Receive d Time (Source) Location / / Volume Laterality Blood 02/18/2022 4:01 AM 2 4:17 EDT AM EDT Resulting Agency Comment Spec In Lab Gela Novak MD CHEMISTRY ORDERABLES Performing Organization Address City/State/ZIP Code Phon e Number [address] Magnesium (02/18/2022 4:01 AM EDT) P athologist Signature Magnesium 0.79 0.69 - 1.07 [facility]/L [facility] Specimen Anatomical Collection Method Collection Time Receive d Time (Source) Location / / Volume Laterality Blood 02/18/2022 4:01 AM 4:17 EDT AM EDT Resulting Agency Comment Spec In Lab Gela Novak MD CHEMISTRY ORDERABLES Performing Organization Address [facility]/ZIP [place] [address] Anaerobic Culture (02/17/2022 8:35 AM EDT) Patholo gist Method Time Signature Anaerobic No anaerobic [facility] Culture organisms [facility] LABORATORY Specimen Anatomical Collection Method Collection Time Receive d Time (Source) Location / / Volume Laterality Deep Wound STRUCTURE OF LEFT 02/17/2022 8:35 AM / THIGH / Unknown EDT 10:03 AM EDT Comment: Left lateral thigh wound Resulting Agency Comment Spec In Lab Jayme Armstrong MD MICROBIOLOGY - GENERAL ORDER JT Performing Organization Address [facility] [place] [address] (ABNORMAL) Abscess/Wound Aspirate Culture (02/17/2022 8:35 AM EDT) Component Value Ref Test Analysis Performed At Patholo Sajan Range Method Time Signature Abscess/Woun One colony of JOSH d Aspirate Serratia marcescens [place] Culture : Susceptibilities [facility] (A) LABORATORY Gram Stain Moderate Neutrophils JOSH No microorganisms seen. [facility] (A) [facility] Organism Serratia marcescens [facility] (A) [facility] LABORATORY Specimen Anatomical Collection Method Collection Time Receive d Time (Source) Location / / Volume Laterality Deep Wound STRUCTURE OF LEFT 02/17/2022 8:35 AM / THIGH / Unknown EDT 10:03 AM EDT Comment: Left lateral thigh wound Resulting Agency Comment Spec In Lab Jayme Armstrong MD MICROBIOLOGY - GENERAL ORDER JT Performing Organization Address City/[facility]/ZIP Code Phon e Number [address] Anaerobic Culture (02/17/2022 8:35 AM EDT) [facility] Method Time Signature Anaerobic No anaerobic [facility] Culture organisms [facility] LABORATORY Specimen Anatomical Collection Method Collection Time Receive d Time (Source) Location / / Volume Laterality Deep Wound STRUCTURE OF LEFT 02/17/2022 8:35 AM / THIGH / Unknown EDT 10:02 AM EDT Comment: left superior thigh wound Resulting Agency Comment Spec In Lab Jayme Armstrong MD MICROBIOLOGY - GENERAL ORDER JT Performing Organization Address City/[facility]/ZIP Code Phon e Number [place] [phone] HOSPITAL LAB[address]ORY Drive (ABNORMAL) Abscess/Wound Aspirate Culture (02/17/2022 8:35 AM EDT) Component Value Ref Test Analysis Performed At [facility] Method Time Signature Abscess/Woun One colony of Serratia gabriele scens : Susceptibilities previously reported [place] Aspirate One colony of Pseudomonas ae ruginosa : Susceptibilities previously reported [place] Culture (A) [facility] Gram Stain Moderate Neutrophils seen MAR Y No microorganisms seen. [facility] (A) [facility] Organism Serratia marcescens JOSH (A) [facility] LABORATORY Organism Pseudomonas JOSH aeruginosa (A) [facility] LABORATORY Specimen Anatomical Collection Method Collection Time Receive d Time (Source) Location / / Volume Laterality Deep Wound STRUCTURE OF LEFT 02/17/2022 8:35 AM 01/30 THIGH / Unknown EDT 10:02 AM EDT Comment: left superior thigh wound Resulting Agency Comment Spec In Lab Jayme Armstrong MD MICROBIOLOGY - GENERAL ORDER JT Performing Organization Address City/[facility]/Z[place] [address] (ABNORMAL) Differential, Automated (02/17/2022 3:40 AM EDT) [facility] Method Time Signature Neutrophils % 66.7 % [facility] Neutr Abs (ANC) 11.34 (H) 1.70 - [facility] 6.10 [facility] x10(3)/[facility] L LABORATORY Lymphocytes % 8.6 % [facility] Lymphocytes Abs 1.5 0.9 - 3.2 [facility] x10(3)/[facility] LABORATORY Monocytes % 6.6 % [facility] Monocyte Abs 1.1 (H) 0.3 - 0.9 [facility] x10(3)/[facility] LABORATORY Eosinophils % 3.9 % [facility] Eosinophils Abs 0.7 (H) 0.0 - 0.4 [facility] x10(3)/[facility] LABORATORY Basophils % 0.5 % [facility] Basophils Abs 0.1 0.0 - 0.1 [facility] x10(3)/[facility] LABORATORY Immature Gran % 13.70 % [facility] Comment: Immature granulocytes(IG's)percentage an d absolute count will include metamyelocytes, myelocytes, and promyelo cytes. Blood smears from CBCs yielding IG's will be scanned manually for concor dance. If this scan disagrees with the automated IG or if promyelocytes are not ed, a manual differential will be performed. Gemini Gran Abs 2.33 (H) 0.00 - 0.04 x10(3)/[facility] LABORATORY Specimen Anatomical Collection Method Collection Time Receive d Time (Source) Location / / Volume Laterality Blood 02/17/2022 3:40 AM 3:59 EDT AM EDT Resulting Agency Comment Spec In Lab Collette Dye MD HEMATOLOGY ORDERABLES Performing Organization Address City/State/Z[place] [address] (ABNORMAL) Hemogram (02/17/2022 3:40 AM EDT) Analysis Performed At Patho logist Time Signature WBC 17.0 (H) 4.0 - 9.5 [facility] x10(3)/[facility] LABORATORY RBC 2.46 (L) 4.58 - [facility] 5.54 [facility] x10(6)/[facility] LABORATORY Hemoglobin 7.1 (L) 13.7 - [facility] 16.5 g/dL [facility] Hematocrit 22.2 (L) 40.5 - [facility] 48.5 % [facility] MCV 90.2 82.9 - [facility] [place] 93.1 [facility] LABORATORY MCH 28.9 27.5 - [facility] [place] 32.1 pg [facility] MCHC 32.0 32.0 - [facility] [place] 35.7 g/dL [facility] Platelets 316 145 - 357 [place] [place] x10(3)/[facility] LABORATORY RDWSD 51.5 (H) 36.0 - [place] [place] 45.0 [facility] LABORATORY RDWCV 15.7 (H) 11.4 - [facility] [place] 13.8 % [facility] MPV 9.0 7.6 - 12.9 [facility] [place] [facility] LABORATORY nRBC % Auto 0.0 % [facility] nRBC Abs Auto 0.000 0.000 - [facility] [place] 0.000 [facility] x10(3)/[facility] LABORATORY Specimen Anatomical Collection Method Collection Time Receive d Time (Source) Location / / Volume Laterality Blood 02/17/2022 3:40 AM 3:59 EDT AM EDT Resulting Agency Comment Spec In Lab Collette Dye MD HEMATOLOGY ORDERABLES Performing Organization Address City/State/ZIP Code Phon e Number [place] [phone] LAB[address]ORY [address] (ABNORMAL) Basic Metabolic Panel (non-fasting) (02/17/2022 3:40 AM EDT) P athologist Signature Glucose Lvl 101 65 - 199 [facility] mg/dL [facility] Comment: Diabetes: >=200 mg/dL plus symp toms BUN 51 (H) 10 - 20 mg/dL [facility] Creatinine 5.07 (H) 0.80 - 1.50 mg/dL [facility] Comment: result rechecked-sf Sodium 130 (L) 135 - 145 mmol/L [facility] Potassium 4.5 3.5 - 5.0 mmol/L [facility] Comment: Please note: ??Patients with WBC >100,00 0 may have falsely elevated Potassium levels. ??For accurate Potassium quantif ication in these patients send serum separator tube (gold top) for subsequent determinations. ??Contact the Clinical Chemistry Laboratory if there are any qu estions. Chloride 96 (L) 98 - 107 mmol/L [facility] CO2 24 22 - 31 mmol/L [facility] Anion Gap 10 5 - 15 mmol/L [facility] Calcium 7.8 (L) 8.5 - 10.5 mg/dL [facility] Estimated GFR 15 (L) >=60 mL/min/1.73 m?? [facility] Comment: This patient's estimated GFR [...] (Source) Location / / Volume Laterality Blood 02/17/2022 3:40 AM 2 3:59 EDT AM EDT Resulting Agency Comment Spec In Lab Gela Novak MD CHEMISTRY ORDERABLES Performing Organization Address City/State/Z[place] [address] (ABNORMAL) Phosphorus (02/17/2022 3:40 AM EDT) P athologist Signature Phosphorus 5.7 (H) 2.5 - 4.5 [facility] mg/dL [facility] Specimen Anatomical Collection Method Collection Time Receive d Time (Source) Location / / Volume Laterality Blood 02/17/2022 3:40 AM 2 3:59 EDT AM EDT Resulting Agency Comment Spec In Lab Gela Novak MD CHEMISTRY ORDERABLES Performing Organization Address City/State/ZIP [place] [address] [facility] Drive Magnesium (02/17/2022 3:40 AM EDT) P athologist Signature Magnesium 0.86 0.69 - 1.07 [facility] mmol/L [facility] Specimen Anatomical Collection Method Collection Time Receive d Time (Source) Location / / Volume Laterality Blood 02/17/2022 3:40 AM 3:59 EDT AM EDT Resulting Agency Comment Spec In Lab Gela Novak MD CHEMISTRY ORDERABLES Performing Organization Address City/State/ZIP [place] [address] [facility] Drive (ABNORMAL) Differential, Automated (02/16/2022 4:05 AM EDT) Patholo gist Method Time Signature Neutrophils % 66.8 % [facility] Neutr Abs (ANC) 12.70 (H) 1.70 - [facility] 6.10 [facility] x10(3)/[facility] LABORATORY Lymphocytes % 6.8 % [facility] Lymphocytes Abs 1.3 0.9 - 3.2 [facility] x10(3)/[facility] LABORATORY Monocytes % 5.9 % [facility] Monocyte Abs 1.1 (H) 0.3 - 0.9 [facility] x10(3)/[facility] LABORATORY Eosinophils % 3.2 % [facility] Eosinophils Abs 0.6 (H) 0.0 - 0.4 [facility] x10(3)/[facility] LABORATORY Basophils % 0.6 % [facility] Basophils Abs 0.1 0.0 - 0.1 [facility] x10(3)/[facility] LABORATORY Immature Gran % 16.70 % [facility] Comment: Immature granulocytes(IG's)percentage an d absolute count will include metamyelocytes, myelocytes, and promyelo cytes. Blood smears from CBCs yielding IG's will be scanned manually for concor dance. If this scan disagrees with the automated IG or if promyelocytes are not ed, a manual differential will be performed. Gemini Gran Abs 3.17 (H) 0.00 - 0.04 x10(3)/[facility] LABORATORY Specimen Anatomical Collection Method Collection Time Receive d Time (Source) Location / / Volume Laterality Blood 02/16/2022 4:05 AM 4:20 EDT AM EDT Resulting Agency Comment Spec In Lab Veto Hidalgo MD HEMATOLOGY ORDERABLES Performing Organization Address City/State/Z[place] [address] (ABNORMAL) Hemogram (02/16/2022 4:05 AM EDT) Analysis Performed At Patho logist Time Signature WBC 19.0 (H) 4.0 - 9.5 [facility] x10(3)/[facility] LABORATORY RBC 2.50 (L) 4.58 - [facility] x10(6)/[facility]ORATORY Hemoglobin 7.3 (L) 13.7 - [facility] 16.[facility] g/dL [facility] Hematocrit 22.3 (L) 40.5 - [facility] 48.5 % [facility] MCV 89.2 82.9 - [facility]1 [facility]ORATORY MCH 29.2 27.5 - [facility] 32.1 pg [facility] MCHC 32.7 32.0 - [facility] 35.7 g/dL [facility] Platelets 296 145 - 357 [facility] x10(3)/[facility] LABORATORY RDWSD 51.5 (H) 36.0 - [facility] 45.0 [facility] LABORATORY RDWCV 15.7 (H) 11.4 - [facility] 13.8 % [facility] MPV 9.2 7.6 - 12.9 [facility] LABORATORY nRBC % Auto 0.0 % [facility] nRBC Abs Auto 0.000 0.000 - [facility] 0.000 [facility] x10(3)/[facility] LABORATORY Specimen Anatomical Collection Method Collection Time Receive d Time (Source) Location / / Volume Laterality Blood 02/16/2022 4:05 AM 2 4:20 EDT AM EDT Resulting Agency Comment Spec In Lab Veto Hidalgo MD HEMATOLOGY ORDERABLES Performing Organization Address City/State/ZIP [place] [address] (ABNORMAL) Basic Metabolic Panel (non-fasting) (02/16/2022 4:05 AM EDT) athologist Signature Glucose Lvl 94 65 - 199 [facility] mg/dL [facility] Comment: Diabetes: >=200 mg/dL plus symp toms BUN 35 (H) 10 - 20 mg/dL [facility] Creatinine 3.65 (H) 0.80 - 1.50 mg/dL [facility] Comment: result rechecked-bm Sodium 128 (L) 135 - 145 mmol/L [facility] Potassium 4.4 3.5 - 5.0 mmol/L [facility] Comment: Please note: ??Patients with WBC >100,00 0 may have falsely elevated Potassium levels. ??For accurate Potassium quantif ication in these patients send serum separator tube (gold top) for subsequent determinations. ??Contact the Clinical Chemistry Laboratory if there are any qu estions. Chloride 95 (L) 98 - 107 mmol/L [facility] CO2 26 22 - 31 mmol/L [facility] Anion Gap 7 5 - 15 mmol/L [facility] Calcium 7.7 (L) 8.5 - 10.5 mg/dL [facility] Estimated GFR 22 (L) >=60 mL/min/1.73 m?? [facility] Comment: This patient's estimated GFR [...] (Source) Location / / Volume Laterality Blood 02/16/2022 4:05 AM 2 4:20 EDT AM EDT Resulting Agency Comment Spec In Lab Gela Novak MD CHEMISTRY ORDERABLES Performing Organization Address City/[facility]/ZIP Code Phon e Number [address] Phosphorus (02/16/2022 4:05 AM EDT) athologist Signature Phosphorus 4.5 2.5 - 4.5 [facility] mg/dL [facility] Specimen Anatomical Collection Method Collection Time Receive d Time (Source) Location / / Volume Laterality Blood 02/16/2022 4:05 AM 2 4:20 EDT AM EDT Resulting Agency Comment Spec In Lab Gela Novak MD CHEMISTRY ORDERABLES Performing Organization Address City/[facility]/Z[place] [address] Magnesium (02/16/2022 4:05 AM EDT) athologist Signature Magnesium 0.83 0.69 - 1.07 [facility] mmol/L [facility] Specimen Anatomical Collection Method Collection Time Receive d Time (Source) Location / / Volume Laterality Blood 02/16/2022 4:05 AM 2 4:20 EDT AM EDT Resulting Agency Comment Spec In Lab Gela Novak MD CHEMISTRY ORDERABLES Performing Organization Address City/[facility]/[place] [address] Anaerobic Culture (02/15/2022 9:06 AM EDT) [facility] Method Time Signature Anaerobic No anaerobic [facility] Culture organisms [facility] LABORATORY Specimen Anatomical Collection Method Collection Time Receive d Time (Source) Location / / Volume Laterality Deep Wound STRUCTURE OF LEFT 02/15/2022 9:06 AM 01/29 THIGH / Unknown EDT 10:49 AM EDT Comment: Left thigh wound culture Resulting Agency Comment Spec In Lab Jayme Armstrong MD MICROBIOLOGY - GENERAL ORDER JT Performing Organization Address City/State/ZIP [place] [address] (ABNORMAL) Abscess/Wound Aspirate Culture (02/15/2022 9:06 AM EDT) [facility] Method Time Signature Abscess/Wound Few Serratia marcescens MA RY Aspirate Rare Pseudomonas aeruginosa HI [facility]OCK Culture Rare mixed bacterial morphotypes suggestive of normal cutaneous yessy [facility] Gram Stain Moderate Gram Positive Cocci J[facility] Rare Gram Negative Rods [facility] Organism Serratia [facility] marcescens (A) [facility] Organism Pseudomonas [facility] aeruginosa (A) [facility] Specimen Anatomical Collection Method Collection Time Receive d Time (Source) Location / / Volume Laterality Deep Wound STRUCTURE OF LEFT 02/15/2022 9:06 AM 01/29 THIGH / Unknown EDT 10:49 AM EDT Comment: Left thigh wound culture Resulting Agency Comment Spec In [...] Sensitiv e Pseudomonas aeruginosa Aztreonam MICROSCAN METHOD Sensitiv e Pseudomonas aeruginosa Cefepime MICROSCAN METHOD <=2: Sen sitive Pseudomonas aeruginosa Ceftazidime MICROSCAN METHOD <=2: Sen sitive Pseudomonas aeruginosa Ciprofloxacin MICROSCAN METHOD Sensitiv e [...] Sen sitive Pseudomonas aeruginosa Piperacillin/Tazobactam MICROSCAN METHOD <=8: Sensitive Pseudomonas aeruginosa Tobramycin MICROSCAN METHOD Sensitiv e Jayme Armstrong MD MICROBIOLOGY - GENERAL ORDER JT Performing Organization Address City/State/ZIP [place] [address] (ABNORMAL) Differential, Automated (02/15/2022 3:50 AM EDT) [facility] gist Method Time Signature Neutrophils % 61.8 % [facility] Neutr Abs (ANC) 13.66 (H) 1.70 - [facility] 6.10 [facility] x10(3)/[facility] LABORATORY Lymphocytes % 7.3 % [facility] Lymphocytes Abs 1.6 0.9 - 3.2 [facility] x10(3)/[facility] LABORATORY Monocytes % 5.4 % [facility] Monocyte Abs 1.2 (H) 0.3 - 0.9 [facility] x10(3)/[facility] LABORATORY Eosinophils % 3.1 % [facility] Eosinophils Abs 0.7 (H) 0.0 - 0.4 [facility] x10(3)/[facility] LABORATORY Basophils % 0.5 % [facility] Basophils Abs 0.1 0.0 - 0.1 [facility] x10(3)/[facility] LABORATORY Immature Gran % 21.90 % [facility] Comment: Immature granulocytes(IG's)percentage an d absolute count will include metamyelocytes, myelocytes, and promyelo cytes. Blood smears from CBCs yielding IG's will be scanned manually for concsemaj crain. If this scan disagrees with the automated IG or if promyelocytes are not ed, a manual differential will be performed. Gemini Gran Abs 4.85 (H) 0.00 - 0.04 x10(3)/[facility] LABORATORY Specimen Anatomical Collection Method Collection Time Receive d Time (Source) Location / / Volume Laterality Blood 02/15/2022 3:50 AM 4:05 EDT AM EDT Resulting Agency Comment Spec In Lab Veto Hidalgo MD HEMATOLOGY ORDERABLES Performing Organization Address City/State/Z[place] [address] (ABNORMAL) Hemogram (02/15/2022 3:50 AM EDT) Analysis Performed At Patho logist Time Signature WBC 22.1 (H) 4.0 - 9.5 [facility] x10(3)/[facility] LABORATORY RBC 2.43 (L) 4.58 - [facility] 5.54 [facility] x10(6)/[facility] LABORATORY Hemoglobin 7.2 (L) 13.7 - [facility] 16.5 g/dL [facility] Hematocrit 21.3 (L) 40.5 - [facility] 48.5 % [facility] MCV 87.7 82.9 - [facility] 93.1 [facility] LABORATORY MCH 29.6 27.5 - [facility] 32.1 pg [facility] MCHC 33.8 32.0 - [facility] 35.7 g/dL [facility] Platelets 254 145 - 357 [facility] x10(3)/[facility] LABORATORY RDWSD 49.2 (H) 36.0 - [facility] 45.0 [facility] LABORATORY RDWCV 15.3 (H) 11.4 - [facility] [place] 13.8 % [facility] MPV 9.3 7.6 - 12.9 [facility] LABORATORY nRBC % Auto 0.0 % [facility] nRBC Abs Auto 0.000 0.000 - [facility] 0.000 [facility] x10(3)/[facility] LABORATORY Specimen Anatomical Collection Method Collection Time Receive d Time (Source) Location / / Volume Laterality Blood 02/15/2022 3:50 AM 4:05 EDT AM EDT Resulting Agency Comment Spec In Lab Veto Hidalgo MD HEMATOLOGY ORDERABLES Performing Organization Address City/State/ZIP [place] [address] (ABNORMAL) Basic Metabolic Panel (non-fasting) (02/15/2022 3:50 AM EDT) P athologist Signature Glucose Lvl 91 65 - 199 [facility] mg/dL [facility] Comment: Diabetes: >=200 mg/dL plus symp toms BUN 62 (H) 10 - 20 mg/dL [facility] Creatinine 5.16 (H) 0.80 - 1.50 mg/dL [facility] Comment: result rechecked-SW Sodium 126 (L) 135 - 145 mmol/L [facility] Potassium 4.8 3.5 - 5.0 mmol/L [facility] Comment: Please note: ??Patients with WBC >100,00 0 may have falsely elevated Potassium levels. ??For accurate Potassium quantif ication in these patients send serum separator tube (gold top) for subsequent determinations. ??Contact the Clinical Chemistry Laboratory if there are any qu estions. Chloride 92 (L) 98 - 107 mmol/L [facility] CO2 23 22 - 31 mmol/L [facility] Anion Gap 11 5 - 15 mmol/L [facility] Calcium 7.5 (L) 8.5 - 10.5 mg/dL [facility] Estimated GFR 14 (L) >=60 mL/min/1.73 m?? [facility] Comment: This patient's estimated GFR [...] (Source) Location / / Volume Laterality Blood 02/15/2022 3:50 AM 2 4:05 EDT AM EDT Resulting Agency Comment Spec In Lab Gela Novak MD CHEMISTRY ORDERABLES Performing Organization Address City/[facility]/ZIP Code Phon e Number [address] (ABNORMAL) Phosphorus (02/15/2022 3:50 AM EDT) athologist Signature Phosphorus 5.7 (H) 2.5 - 4.5 [facility] mg/dL [facility] Specimen Anatomical Collection Method Collection Time Receive d Time (Source) Location / / Volume Laterality Blood 02/15/2022 3:50 AM 2 4:05 EDT AM EDT Resulting Agency Comment Spec In Lab Gela Novak MD CHEMISTRY ORDERABLES Performing Organization Address City/[facility]/Z[place] [address] Magnesium (02/15/2022 3:50 AM EDT) P athologist Signature Magnesium 0.82 0.69 - 1.07 [facility] mmol/L [facility] Specimen Anatomical Collection Method Collection Time Receive d Time (Source) Location / / Volume Laterality Blood 02/15/2022 3:50 AM 2 4:05 EDT AM EDT Resulting Agency Comment Spec In Lab Gela Novak MD CHEMISTRY ORDERABLES Performing Organization Address City/[facility]/Z[place] [address] Scan, Peripheral Blood (02/14/2022 5:26 AM EDT) Patholo gist Method Time Signature Plat Estimate Normal [facility] RBC Morphology Abnormal [facility] Hypochromia Slight [facility] Specimen Anatomical Collection Method Collection Time Receive d Time (Source) Location / / Volume Laterality Blood 02/14/2022 5:26 AM 5:45 EDT AM EDT Resulting Agency Comment Spec In Lab Veto Hidalgo MD HEMATOLOGY ORDERABLES Performing Organization Address City/State/ZIP [place] [address] (ABNORMAL) Differential, Automated (02/14/2022 5:26 AM EDT) [facility] Sajan Method Time Signature Neutrophils % 52.2 % [facility] Neutr Abs (ANC) 12.07 (H) 1.70 - [facility] 6.10 [facility] x10(3)/[facility] LABORATORY Lymphocytes % 7.7 % [facility] Lymphocytes Abs 1.8 0.9 - 3.2 [facility] x10(3)/[facility] LABORATORY Monocytes % 6.7 % [facility] Monocyte Abs 1.5 (H) 0.3 - 0.9 [facility] x10(3)/[facility] LABORATORY Eosinophils % 3.1 % [facility] Eosinophils Abs 0.7 (H) 0.0 - 0.4 [facility] x10(3)/[facility] LABORATORY Basophils % 0.3 % [facility] Basophils Abs 0.1 0.0 - 0.1 [facility] x10(3)/[facility] LABORATORY Immature Gran % 30.00 % [facility] Comment: Immature granulocytes(IG's)percentage an d absolute count will include metamyelocytes, myelocytes, and promyelo cytes. Blood smears from CBCs yielding IG's will be scanned manually for concor dance. If this scan disagrees with the automated IG or if promyelocytes are not ed, a manual differential will be performed. Gemini Gran Abs 6.92 (H) 0.00 - 0.04 x10(3)/[facility] LABORATORY Specimen Anatomical Collection Method Collection Time Receive d Time (Source) Location / / Volume Laterality Blood 02/14/2022 5:26 AM 2 5:45 EDT AM EDT Resulting Agency Comment Spec In Lab Veto Hidalgo MD HEMATOLOGY ORDERABLES Performing Organization Address City/State/Z[place] [address] (ABNORMAL) Hemogram (02/14/2022 5:26 AM EDT) Analysis Performed At Patho logist Time Signature WBC 23.1 (H) 4.0 - 9.5 [facility] x10(3)/[facility] LABORATORY RBC 2.62 (L) 4.58 - [facility] x10(6)/[facility] LABORATORY Hemoglobin 8.0 (L) 13.7 - [facility] 16.5 g/dL [facility] Hematocrit 23.0 (L) 40.5 - [facility] 48.5 % [facility] MCV 87.8 82.9 - [facility] 93.1 [facility] LABORATORY MCH 30.5 27.5 - [facility] 32.1 pg [facility] MCHC 34.8 32.0 - [facility] g/dL [facility] Platelets 240 145 - 357 [facility] x10(3)/[facility] LABORATORY RDWSD 49.2 (H) 36.0 - [facility] 45.0 [facility] LABORATORY RDWCV 15.5 (H) 11.4 - [facility] 13.8 % [facility] MPV 9.4 7.6 - 12.9 [facility] nRBC % Auto 0.0 % [facility] nRBC Abs Auto 0.000 0.000 - [facility] 0.000 [facility] x10(3)/[facility] LABORATORY Specimen Anatomical Collection Method Collection Time Receive d Time (Source) Location / / Volume Laterality Blood 02/14/2022 5:26 AM 2 5:45 EDT AM EDT Resulting Agency Comment Spec In Lab Veto Hidalgo MD HEMATOLOGY ORDERABLES Performing Organization Address City/State/ZIP [place] [address] (ABNORMAL) Basic Metabolic Panel (non-fasting) (02/14/2022 5:26 AM EDT) P athologist Signature Glucose Lvl 92 65 - 199 [facility] mg/dL [facility] Comment: Diabetes: >=200 mg/dL plus symp toms BUN 47 (H) 10 - 20 mg/dL [facility] Creatinine 4.06 (H) 0.80 - 1.50 mg/dL [facility] Comment: result rechecked-KS Sodium 127 (L) 135 - 145 mmol/L [facility]ORY Potassium 4.4 3.5 - 5.0 mmol/L [facility]ORY Comment: Please note: ??Patients with WBC >100,00 0 may have falsely elevated Potassium levels. ??For accurate Potassium quantif ication in these patients send serum separator tube (gold top) for subsequent determinations. ??Contact the Clinical Chemistry Laboratory if there are any qu estions. Chloride 91 (L) 98 - 107 mmol/L [facility] CO2 23 22 - 31 mmol/L [facility] Anion Gap 13 5 - 15 mmol/L [facility] Calcium 7.1 (L) 8.5 - 10.5 mg/dL [facility] Estimated GFR 19 (L) >=60 mL/min/1.73 m?? [facility] Comment: This patient's estimated GFR [...] (Source) Location / / Volume Laterality Blood 02/14/2022 5:26 AM 2 5:45 EDT AM EDT Resulting Agency Comment Spec In Lab Gela Novak MD CHEMISTRY ORDERABLES Performing Organization Address City/[facility]/[place] [address] (ABNORMAL) Phosphorus (02/14/2022 5:26 AM EDT) P athologist Signature Phosphorus 4.7 (H) 2.5 - 4.5 [facility] Specimen Anatomical Collection Method Collection Time Receive d Time (Source) Location / / Volume Laterality Blood 02/14/2022 5:26 AM 2 5:45 EDT AM EDT Resulting Agency Comment Spec In Lab Gela Novak MD CHEMISTRY ORDERABLES Performing Organization Address City/[facility]/[place] [address] Magnesium (02/14/2022 5:26 AM EDT) P athologist Signature Magnesium 0.80 0.69 - 1.07 [facility]/L [facility] Specimen Anatomical Collection Method Collection Time Receive d Time (Source) Location / / Volume Laterality Blood 02/14/2022 5:26 AM 2 5:45 EDT AM EDT Resulting Agency Comment Spec In Lab Gela Novak MD CHEMISTRY ORDERABLES Performing Organization Address City/[facility]/[place] [address] Femur w Contrast [...] who have questions please contact the health nursing care attendant that requested your imaging first. ? Narrative [...] ho have questions please contact the health nursing care attendant that requested your imaging first. Parrish Betancourt MD IMG CT ORDERABLES CT Abdomen [...] who have questions please contact the health nursing care attendant that requested your imaging first. ? Electronically signed by: Zander Hayes DO, [facility] ([phone]), at 02/13/2022 6:27 PM Narrative 02/13/2022 6:27 PM EDT EXAMINATION: CT [...] ho have questions please contact the health nursing care attendant that requested your imaging first. Electronically signed by: Zander Hayes DO, [facility] ([phone]), at 02/13/2022 6:27 PM Parrish Betancourt MD IMG CT ORDERABLES XR Abdomen 1 view (Generic) (02/13/2022 8:10 AM EDT) Anatomical Region Laterality Modality Abdomen N/A Digital [...] who have questions please contact the health nursing care attendant that requested your imaging first. ? Electronically signed by: Mercedes Redding MD , [facility] ([phone]), at 02/13/2022 8:56 AM Narrative 02/13/2022 8:56 [...] ho have questions please contact the health nursing care attendant that requested your imaging first. Parrish Betancourt MD IMG DX ORDERABLES Scan, Peripheral Blood (02/13/2022 12:20 AM EDT) [facility] gist Method Time Signature Plat Estimate Normal [facility] RBC Morphology Abnormal [facility] Hypochromia Slight [facility] Angel Cells 1-5 /HPF [facility] Stippled RBCs Present >1/HPF [facility] Toxic Present [facility]ORY Specimen Anatomical Collection Method Collection Time Receive d Time (Source) Location / / Volume Laterality Blood 02/13/2022 12:20 02/13/2022 AM EDT 12:37 AM EDT Resulting Agency Comment Spec In Lab Kaitlyn Rock MD HEMATOLOGY ORDERABLES Performing Organization Address City/State/[place] [address] (ABNORMAL) Differential, Automated (02/13/2022 12:20 AM EDT) [facility] Method Time Signature Neutrophils % 44.9 % [facility] Neutr Abs (ANC) 11.00 (H) 1.70 - [facility] 6.10 [facility] x10(3)/[facility] LABORATORY Lymphocytes % 8.8 % [facility] Lymphocytes Abs 2.2 0.9 - 3.2 [facility] x10(3)/[facility] LABORATORY Monocytes % 9.3 % [facility] Monocyte Abs 2.3 (H) 0.3 - 0.9 [facility] x10(3)/[facility] LABORATORY Eosinophils % 2.6 % [facility] Eosinophils Abs 0.6 (H) 0.0 - 0.4 [facility] x10(3)/[facility] LABORATORY Basophils % 0.3 % [facility] Basophils Abs 0.1 0.0 - 0.1 [facility] x10(3)/[facility] LABORATORY Immature Gran % 34.10 % [facility] Comment: Immature granulocytes(IG's)percentage an d absolute count will include metamyelocytes, myelocytes, and promyelo cytes. Blood smears from CBCs yielding IG's will be scanned manually for concor dance. If this scan disagrees with the automated IG or if promyelocytes are not ed, a manual differential will be performed. Gemini Gran Abs 8.35 (H) 0.00 - 0.04 x10(3)/[facility] LABORATORY Specimen Anatomical Collection Method Collection Time Receive d Time (Source) Location / / Volume Laterality Blood 02/13/2022 12:20 02/13/2022 AM EDT 12:37 AM EDT Resulting Agency Comment Spec In Lab Kaitlyn Rock MD HEMATOLOGY ORDERABLES Performing Organization Address City/State/ZIP [place] [address] (ABNORMAL) Hemogram (02/13/2022 12:20 AM EDT) Analysis Performed At Patho logist Time Signature WBC 24.5 (H) 4.0 - 9.5 [facility] x10(3)/[facility] LABORATORY RBC 2.72 (L) 4.58 - [facility] 5.54 [facility] x10(6)/[facility] LABORATORY Hemoglobin 8.0 (L) 13.7 - [facility] 16.5 g/dL [facility] Hematocrit 23.6 (L) 40.5 - [facility] 48.5 % [facility] MCV 86.8 82.9 - [facility] 93.1 [facility] LABORATORY MCH 29.4 27.5 - [facility] 32.1 pg [facility] MCHC 33.9 32.0 - [facility] 35.7 g/dL [facility] Platelets 201 145 - 357 [facility] x[facility](3[facility] LABORATORY RDWSD 48.3 (H) 36.0 - [facility] 45.0 [facility] LABORATORY RDWCV 15.4 (H) 11.4 - [facility] 13.8 % [facility] MPV 9.7 7.6 - 12.9 [facility] LABORATORY nRBC % Auto 0.0 % [facility] nRBC Abs Auto 0.000 0.000 - [facility] 0.000 [facility] x10(3)/[facility] LABORATORY Specimen Anatomical Collection Method Collection Time Receive d Time (Source) Location / / Volume Laterality Blood 02/13/2022 12:20 02/13/2022 AM EDT 12:37 AM EDT Resulting Agency Comment Spec In Lab Kaitlyn Rock MD HEMATOLOGY ORDERABLES Performing Organization Address City/State/ZIP [place] [address] (ABNORMAL) Basic Metabolic Panel (non-fasting) (02/13/2022 12:20 AM EDT) P athologist Signature Glucose Lvl 120 65 - 199 [facility] mg/dL [facility] Comment: Diabetes: >=200 mg/dL plus symp toms BUN 30 (H) 10 - 20 mg/dL [facility] Creatinine 2.85 (H) 0.80 - 1.50 mg/dL [facility] Comment: result rechecked-bm Sodium 127 (L) 135 - 145 mmol/L [facility] Potassium 3.8 3.5 - 5.0 mmol/L [facility] Comment: Please note: ??Patients with WBC >100,00 0 may have falsely elevated Potassium levels. ??For accurate Potassium quantif ication in these patients send serum separator tube (gold top) for subsequent determinations. ??Contact the Clinical Chemistry Laboratory if there are any qu estions. Chloride 94 (L) 98 - 107 mmol/L [facility] CO2 27 22 - 31 mmol/L [facility] Anion Gap 6 5 - 15 mmol/L [facility] Calcium 7.0 (L) 8.5 - 10.5 mg/dL [facility] Comment: result rechecked-bm Estimated GFR 30 (L) >=60 mL/min/1.73 m?? [facility] Comment: This patient's estimated GFR [...] (Source) Location / / Volume Laterality Blood 02/13/2022 12:20 02/13/2022 AM EDT 12:37 AM EDT Resulting Agency Comment Spec In Lab Gela Novak MD CHEMISTRY ORDERABLES Performing Organization Address City/State/[place] [address] Phosphorus (02/13/2022 12:20 AM EDT) P athologist Signature Phosphorus 2.8 2.5 - 4.5 [facility] mg/dL [facility] Specimen Anatomical Collection Method Collection Time Receive d Time (Source) Location / / Volume Laterality Blood 02/13/2022 12:20 02/13/2022 AM EDT 12:37 AM EDT Resulting Agency Comment Spec In Lab Gela Novak MD CHEMISTRY ORDERABLES Performing Organization Address City/State/[place] [address] Magnesium (02/13/2022 12:20 AM EDT) P athologist Signature Magnesium 0.79 0.69 - 1.07 [facility] mmol/L [facility] Specimen Anatomical Collection Method Collection Time Receive d Time (Source) Location / / Volume Laterality Blood 02/13/2022 12:20 02/13/2022 AM EDT 12:37 AM EDT Resulting Agency Comment Spec In Lab Gela Novak MD CHEMISTRY ORDERABLES Performing Organization Address City/[facility]/[place] [address] (ABNORMAL) Sodium (02/12/2022 4:45 PM EDT) P athologist Signature Sodium 128 (L) 135 - 145 [facility] mmol/L [facility] Specimen Anatomical Collection Method Collection Time Receive d Time (Source) Location / / Volume Laterality Blood 02/12/2022 4:45 PM 5:17 EDT PM EDT Resulting Agency Comment Spec In Lab Parrish Betancourt MD CHEMISTRY ORDERABLES Performing Organization Address City/State/[place] [address] Prepare RBC (02/12/2022 9:55 AM EDT) P athologist Signature Dispensed? Yes [facility] Specimen Anatomical Collection Method Collection Time Receive d Time (Source) Location / / Volume Laterality Blood 02/12/2022 9:55 AM 2 9:53 EDT AM EDT Parrish Betancourt MD BLOOD BANK ORDERABLES Performing Organization Address City/[facility]/ZIP Code Phon e Number [address] (ABNORMAL) Sodium (02/12/2022 9:16 AM EDT) P athologist Signature Sodium 125 (L) 135 - 145 [facility] mmol/L [facility] Specimen Anatomical Collection Method Collection Time Receive d Time (Source) Location / / Volume Laterality Blood 02/12/2022 9:16 AM 2 9:18 EDT AM EDT Resulting Agency Comment Spec In Lab Parrish Betancourt MD CHEMISTRY ORDERABLES Performing Organization Address City/[facility] Phon e Number [address] (ABNORMAL) Differential, Automated (02/12/2022 12:30 AM EDT) Patholo gist Method Time Signature Neutrophils % 49.1 % [facility] Neutr Abs (ANC) 11.38 (H) 1.70 - [facility] 6.10 [facility] x10(3)/[facility] LABORATORY Lymphocytes % 8.6 % [facility] Lymphocytes Abs 2.0 0.9 - 3.2 [facility] x10(3)/[facility] LABORATORY Monocytes % 10.6 % [facility] Monocyte Abs 2.4 (H) 0.3 - 0.9 [facility] x10(3)/[facility] LABORATORY Eosinophils % 0.9 % [facility] Eosinophils Abs 0.2 0.0 - 0.4 [facility] x10(3)/[facility] LABORATORY Basophils % 0.3 % [facility] Basophils Abs 0.1 0.0 - 0.1 [facility] x10(3)/[facility] LABORATORY Immature Gran % 30.50 % [facility] Comment: Immature granulocytes(IG's)percentage an d absolute count will include metamyelocytes, myelocytes, and promyelo cytes. Blood smears from CBCs yielding IG's will be scanned manually for concor dance. If this scan disagrees with the automated IG or if promyelocytes are not ed, a manual differential will be performed. Gemini Gran Abs 7.06 (H) 0.00 - 0.04 x10(3)/[facility] LABORATORY Specimen Anatomical Collection Method Collection Time Receive d Time (Source) Location / / Volume Laterality Blood 02/12/2022 12:30 02/12/2022 1:03 AM EDT AM EDT Resulting Agency Comment Spec In Lab Kaitlyn Rock MD HEMATOLOGY ORDERABLES Performing Organization Address City/State/ZIP Code Phon e Number [place] [id number] LAB[address]ORY Drive (ABNORMAL) Hemogram (02/12/2022 12:30 AM EDT) Analysis Performed At Patho logist Time Signature WBC 23.2 (H) 4.0 - 9.5 [facility] x10(3)/[facility] LABORATORY RBC 2.37 (L) 4.58 - [facility] 5.54 [facility] x10(6)/[facility] LABORATORY Hemoglobin 6.9 (L) 13.7 - [facility] 16.5 g/dL [facility] Hematocrit 20.7 (L) 40.5 - [facility] 48.5 % [facility] MCV 87.3 82.9 - [facility] 93.1 [facility] LABORATORY MCH 29.1 27.5 - [facility] 32.1 pg [facility] MCHC 33.3 32.0 - [facility] 35.7 g/dL [facility] Platelets 166 145 - 357 [facility] x10(3)/[facility] LABORATORY RDWSD 49.0 (H) 36.0 - [facility] 45.0 [facility] LABORATORY RDWCV 15.5 (H) 11.4 - [facility] 13.8 % [facility] MPV 10.2 7.6 - 12.9 [facility] LABORATORY nRBC % Auto 0.0 % [facility] nRBC Abs Auto 0.000 0.000 - [facility] 0.000 [facility] x10(3)/[facility] LABORATORY Specimen Anatomical Collection Method Collection Time Receive d Time (Source) Location / / Volume Laterality Blood 02/12/2022 12:30 02/12/2022 1:03 AM EDT AM EDT Resulting Agency Comment Spec In Lab Kaitlyn Rock MD HEMATOLOGY ORDERABLES Performing Organization Address City/State/Z[place] [address] (ABNORMAL) Basic Metabolic Panel (non-fasting) (02/12/2022 12:30 AM EDT) athologist Signature Glucose Lvl 103 65 - 199 [facility] mg/dL [facility] Comment: Diabetes: >=200 mg/dL plus symp toms BUN 39 (H) 10 - 20 mg/dL [facility] Comment: result rechecked-EWR Creatinine 3.74 (H) 0.80 - 1.50 mg/dL [facility] Comment: result rechecked-EWR Sodium 127 (L) 135 - 145 mmol/L [facility] Potassium 4.4 3.5 - 5.0 mmol/L [facility] Comment: Please note: ??Patients with WBC >100,00 0 may have falsely elevated Potassium levels. ??For accurate Potassium quantif ication in these patients send serum separator tube (gold top) for subsequent determinations. ??Contact the Clinical Chemistry Laboratory if there are any qu estions. Chloride 99 98 - 107 mmol/L [facility] CO2 21 (L) 22 - 31 mmol/L [facility] Anion Gap 7 5 - 15 mmol/L [facility] Calcium 6.1 (Critical) 8.5 - 10.5 mg/dL [facility] Comment: Called by: CLAUDIA, Read back by: Jesus Robertson, Date/Time:02/12/22 02:00. Estimated GFR 21 (L) >=60 mL/min/1.73 m?? [facility] Comment: This patient's estimated GFR [...] Novak MD CHEMISTRY ORDERABLES Performing Organization Address City/[facility]/ZIP Code Phon e Number [address] Phosphorus (02/12/2022 12:30 AM EDT) P athologist Signature Phosphorus 2.7 2.5 - 4.5 [facility] mg/dL [facility] Specimen Anatomical Collection Method Collection Time Receive d Time (Source) Location / / Volume Laterality Blood 02/12/2022 12:30 02/12/2022 1:03 AM EDT AM EDT Resulting Agency Comment Spec In Lab Gela Novak MD CHEMISTRY ORDERABLES Performing Organization Address City/[facility]/ZIP Code Phon e Number [address] Magnesium (02/12/2022 12:30 AM EDT) P athologist Signature Magnesium 0.79 0.69 - 1.07 [facility] mmol/L [facility] Specimen Anatomical Collection Method Collection Time Receive d Time (Source) Location / / Volume Laterality Blood 02/12/2022 12:30 02/12/2022 1:03 AM EDT AM EDT Resulting Agency Comment Spec In Lab Gela Novak MD CHEMISTRY ORDERABLES Performing Organization Address City/[facility]/[place]IP [facility] [place] [facility] [address] (ABNORMAL) Albumin Level (02/12/2022 12:30 AM EDT) P athologist Signature Albumin 1.3 (L) 3.2 - 5.2 [facility] g/dL [facility] Specimen Anatomical Collection Method Collection Time Receive d Time (Source) Location / / Volume Laterality Blood 02/12/2022 12:30 02/12/2022 1:03 AM EDT AM EDT Resulting Agency Comment Spec In Lab Parrish Betancourt MD CHEMISTRY ORDERABLES Performing Organization Address City/[facility]/ZIP Code Phon e Number [address] (ABNORMAL) Prealbumin (02/12/2022 12:30 AM EDT) athologist Signature Prealbumin 15 (L) 20 - 40 [facility] mg/dL [facility] Comment: Prealbumin levels are generally lower in the pediatric population; adult concentrations are usually attained near puberty. Specimen Anatomical Collection Method Collection Time Receive d Time (Source) Location / / Volume Laterality Blood 02/12/2022 12:30 02/12/2022 1:03 AM EDT AM EDT Resulting Agency Comment Spec In Lab Parrish Betancourt MD CHEMISTRY ORDERABLES Performing Organization Address City/[facility]/[place] [address] SCAN DOC: LAB (02/12/2022 12:00 AM EDT) Narrative 02/12/2022 12:00 AM EDT This result has an attachment that is no t available. Ordered by an unspecified provider. Scanning Provider MEDIA MGR SCAN EXT ORDR/RSLT MRI Brain wo Contrast (02/11/2022 5:13 PM EDT) Anatomical Region Laterality Modality Head Magnetic Resonance [...] who have questions please contact the health nursing care attendant that requested your imaging first. ? Electronically signed by: Bernadine Edward [facility] ([phone]), at 02/11/2022 5:54 PM Narrative 02/11/2022 5:54 PM EDT EXAMINATION: MRI [...] ho have questions please contact the health nursing care attendant that requested your imaging first. Electronically signed by: Bernadine Edward [facility] ([phone]), at 02/11/2022 5:54 PM Parrish Betancourt MD IMG MRI ORDERABLES (ABNORMAL) Sodium (02/11/2022 4:09 PM EDT) athologist Signature Sodium 129 (L) 135 - 145 [facility] mmol/L [facility] Specimen Anatomical Collection Method Collection Time Receive d Time (Source) Location / / Volume Laterality Blood 02/11/2022 4:09 PM 2 4:33 EDT PM EDT Resulting Agency Comment Spec In Lab Parrish Betancourt MD CHEMISTRY ORDERABLES Performing Organization Address City/State/Z[place] [address] (ABNORMAL) Sodium (02/11/2022 8:20 AM EDT) P athologist Signature Sodium 127 (L) 135 - 145 [facility] mmol/L [facility] Specimen Anatomical Collection Method Collection Time Receive d Time (Source) Location / / Volume Laterality Blood 02/11/2022 8:20 AM 2 8:39 EDT AM EDT Resulting Agency Comment Spec In Lab Parrish Betancourt MD CHEMISTRY ORDERABLES Performing Organization Address City/[facility]/ZIP Code Phon e Number [address] Scan, Peripheral Blood (02/11/2022 12:37 AM EDT) [facility] Method Time Signature Plat Estimate Decreased [facility] RBC Morphology Abnormal [facility] Polychromasia Present >5/HPF [facility] Ovalocytes 1-5 /HPF [facility] Stippled RBCs Present >1/HPF [facility] Dohle Bodies Present [facility] Specimen Anatomical Collection Method Collection Time Receive d Time (Source) Location / / Volume Laterality Blood 02/11/2022 12:37 02/11/2022 AM EDT 12:47 AM EDT Resulting Agency Comment Spec In Lab Jeanette Escamilla APRN HEMATOLOGY ORDERABLES Performing Organization Address City/[facility]/ZIP Code Phon e Number [address] Green Tube HOLD (02/11/2022 12:37 AM EDT) P athologist Signature Green Hold Sample in [facility] LABORATORY Specimen Anatomical Collection Method Collection Time Receive d Time (Source) Location / / Volume Laterality Blood Venous Draw / 02/11/2022 12:37 02/11/2022 Unknown AM EDT 12:48 AM EDT Jeanette Escamilla APRN CHEMISTRY ORDERABLES Performing Organization Address City/[facility]/Z[place] [address] (ABNORMAL) Differential, Automated (02/11/2022 12:37 AM EDT) [facility] Method Time Signature Neutrophils % 39.1 % [facility] Neutr Abs (ANC) 7.07 (H) 1.70 - [facility] 6.10 [facility] x10(3)/[facility] LABORATORY Lymphocytes % 12.7 % [facility] Lymphocytes Abs 2.3 0.9 - 3.2 [facility] x10(3)/[facility] LABORATORY Monocytes % 11.4 % [facility] Monocyte Abs 2.1 (H) 0.3 - 0.9 [facility] x10(3)/[facility] LABORATORY Eosinophils % 2.9 % [facility] Eosinophils Abs 0.5 (H) 0.0 - 0.4 [facility] x10(3)/[facility] LABORATORY Basophils % 0.5 % [facility] Basophils Abs 0.1 0.0 - 0.1 [facility] x10(3)/[facility] LABORATORY Immature Gran % 33.40 % [facility] Comment: Immature granulocytes(IG's)percentage an d absolute count will include metamyelocytes, myelocytes, and promyelo cytes. Blood smears from CBCs yielding IG's will be scanned manually for concor dance. If this scan disagrees with the automated IG or if promyelocytes are not ed, a manual differential will be performed. Gemini Gran Abs 6.04 (H) 0.00 - 0.04 x10(3)/[facility] LABORATORY Specimen Anatomical Collection Method Collection Time Receive d Time (Source) Location / / Volume Laterality Blood 02/11/2022 12:37 02/11/2022 AM EDT 12:47 AM EDT Resulting Agency Comment Spec In Lab Jeanette Escamilla APRN HEMATOLOGY ORDERABLES Performing Organization Address City/State/ZIP [place] [address] (ABNORMAL) Hemogram (02/11/2022 12:37 AM EDT) Analysis Performed At Patho logist Time Signature WBC 18.1 (H) 4.0 - 9.5 [facility] x10(3)/[facility] LABORATORY RBC 2.44 (L) 4.58 - [facility] x10(6)/[facility] LABORATORY Hemoglobin 7.0 (L) 13.7 - [facility] 16.5 g/dL [facility] LABORATORY Hematocrit 21.0 (L) 40.5 - [facility] 48.5 % [facility] LAB[facility] MCV 86.1 82.9 - [facility] 93.1 [facility] LABORATORY MCH 28.7 27.5 - [facility] 32.1 pg [facility] LABORATORY MCHC 33.3 32.0 - [facility] 35.7 g/dL [facility] LABORATORY Platelets 140 (L) 145 - 357 [facility] x10(3)/[facility] LABORATORY RDWSD 50.0 (H) 36.0 - [facility] 45.0 [facility] LABORATORY RDWCV 15.9 (H) 11.4 - [facility] 13.8 % [facility] LABORATORY MPV 10.0 7.6 - 12.9 [facility] LABORATORY nRBC % Auto 0.0 % [facility] LABORATORY nRBC Abs Auto 0.000 0.000 - [facility] x10(3)/[facility] LABORATORY Specimen Anatomical Collection Method Collection Time Receive d Time (Source) Location / / Volume Laterality Blood 02/11/2022 12:37 02/11/2022 AM EDT 12:47 AM EDT Resulting Agency Comment Spec In Lab Jeanette Escamilla APRN HEMATOLOGY ORDERABLES Performing Organization Address City/State/ZIP [place] [address] (ABNORMAL) Basic Metabolic Panel (non-fasting) (02/11/2022 12:37 AM EDT) P athologist Signature Glucose Lvl 125 65 - 199 [facility] mg/dL [facility] LABORATORY Comment: Diabetes: >=200 mg/dL plus symp toms BUN 23 (H) 10 - 20 mg/dL [facility] LABORATORY Creatinine 2.42 (H) 0.80 - 1.50 mg/dL [facility] LABORATORY Sodium 128 (L) 135 - 145 mmol/L [facility] LABORATORY Potassium 3.8 3.5 - 5.0 mmol/L [facility] LABORATORY Comment: Please note: ??Patients with WBC >100,00 0 may have falsely elevated Potassium levels. ??For accurate Potassium quantif ication in these patients send serum separator tube (gold top) for subsequent determinations. ??Contact the Clinical Chemistry Laboratory if there are any qu estions. Chloride 96 (L) 98 - 107 mmol/L [facility] LABORATORY CO2 26 22 - 31 mmol/L [facility] LABORATORY Anion Gap 6 5 - 15 mmol/L [facility] LABORATORY Calcium 6.4 (Critical) 8.5 - 10.5 mg/dL [facility] LABORATORY Comment: Called by: , Read back by: sakshi abreu, Date/Time:02/11/22 01:43.l Estimated GFR 36 (L) >=60 mL/min/1.73 m?? [facility] LABORATORY Comment: This patient's estimated GFR [...] (Source) Location / / Volume Laterality Blood 02/11/2022 12:37 02/11/2022 AM EDT 12:47 AM EDT Resulting Agency Comment Spec In Lab Gela Novak MD CHEMISTRY ORDERABLES Performing Organization Address City/State/Z[place] [address] (ABNORMAL) Phosphorus (02/11/2022 12:37 AM EDT) P athologist Signature Phosphorus 2.1 (L) 2.5 - 4.5 [facility] mg/dL [facility] LABORATORY Specimen Anatomical Collection Method Collection Time Receive d Time (Source) Location / / Volume Laterality Blood 02/11/2022 12:37 02/11/2022 AM EDT 12:47 AM EDT Resulting Agency Comment Spec In Lab Gela Novak MD CHEMISTRY ORDERABLES Performing Organization Address City/State/ZIP Code Phon e Number [address] Magnesium (02/11/2022 12:37 AM EDT) P athologist Signature Magnesium 0.75 0.69 - 1.07 [facility] LABORATORY Specimen Anatomical Collection Method Collection Time Receive d Time (Source) Location / / Volume Laterality Blood 02/11/2022 12:37 02/11/2022 AM EDT 12:47 AM EDT Resulting Agency Comment Spec In Lab Gela Novak MD CHEMISTRY ORDERABLES Performing Organization Address City/[facility]/ZIP Code Phon e Number [address] (ABNORMAL) Sodium (02/10/2022 4:47 PM EDT) athologist Signature Sodium 132 (L) 135 - 145 [facility] mmol/L [facility] LABORATORY Specimen Anatomical Collection Method Collection Time Receive d Time (Source) Location / / Volume Laterality Blood 02/10/2022 4:47 PM 5:02 EDT PM EDT Resulting Agency Comment Spec In Lab Parrish Betancourt MD CHEMISTRY ORDERABLES Performing Organization Address City/[facility]/ZIP Code Phon e Number [address] (ABNORMAL) Sodium (02/10/2022 9:05 AM EDT) athologist Signature Sodium 129 (L) 135 - 145 [facility] mmolL [facility] LABORATORY Specimen Anatomical Collection Method Collection Time Receive d Time (Source) Location / / Volume Laterality Blood Venous Draw / 02/10/2022 9:05 AM 02/11/20 9:36 Unknown EDT AM EDT Resulting Agency Comment Spec In Lab Kaitlyn Rokc MD CHEMISTRY ORDERABLES Performing Organization Address City/[facility]/ZIP Code Phon e Number [address] Scan, Peripheral Blood (02/10/2022 12:00 AM EDT) [facility] gist Method Time Signature Plat Estimate Decreased [facility] LABORATORY RBC Morphology Abnormal [facility] LABORATORY Polychromasia Present >5/HPF [facility] LABORATORY Ovalocytes 1-5 /HPF [facility] LABORATORY [place] Cells 1-5 /HPF [facility] LABORATORY Stippled RBCs Present >1/HPF [facility] LABORATORY Dohle Bodies Present [facility] LABORATORY Giant Platelets Less than 1 /HPF [facility] LABORATORY Specimen (Source) Anatomical Collection Method Collection Time Re ceived Time Location / / Volume Laterality Blood 02/10/2022 02/10/2022 12:4 0 AM EDT Resulting Agency Comment Spec In Lab Kaitlyn Rock MD HEMATOLOGY ORDERABLES Performing Organization Address City/State/ZIP [place] [address] (ABNORMAL) Differential, Automated (02/10/2022 12:00 AM EDT) [facility] gist Method Time Signature Neutrophils % 52.5 % [facility] LABORATORY Neutr Abs (ANC) 8.47 (H) 1.70 - [facility] 6.10 [facility] x10(3)/[facility] LABORATORY Lymphocytes % 12.2 % [facility] LABORATORY Lymphocytes Abs 2.0 0.9 - 3.2 [facility] x10(3)/[facility] LABORATORY Monocytes % 17.3 % [facility] LABORATORY Monocyte Abs 2.8 (H) 0.3 - 0.9 [facility] x10(3)/[facility] LABORATORY Eosinophils % 2.5 % [facility] LABORATORY Eosinophils Abs 0.4 0.0 - 0.4 [facility] x10(3)/[facility] LABORATORY Basophils % 0.4 % [facility] LABORATORY Basophils Abs 0.1 0.0 - 0.1 [facility] x10(3)/[facility] LABORATORY Immature Gran % 15.10 % [facility] LABORATORY Comment: Immature granulocytes(IG's)percentage an d absolute count will include metamyelocytes, myelocytes, and promyelo cytes. Blood smears from CBCs yielding IG's will be scanned manually for concor dance. If this scan disagrees with the automated IG or if promyelocytes are not ed, a manual differential will be performed. Gemini Gran Abs 2.44 (H) 0.00 - 0.04 x10(3)/[facility] LABORATORY Specimen (Source) Anatomical Collection Method Collection Time Re ceived Time Location / / Volume Laterality Blood 02/10/2022 02/10/2022 12:4 0 AM EDT Resulting Agency Comment Spec In Lab Kaitlyn Rock MD HEMATOLOGY ORDERABLES Performing Organization Address City/State/ZIP [place] [address] (ABNORMAL) Hemogram (02/10/2022 12:00 AM EDT) Analysis Performed At Patho logist Time Signature WBC 16.1 (H) 4.0 - 9.5 [facility] x[facility](3[facility] LABORATORY RBC 2.96 (L) 4.58 - [facility] 5.54 [facility] x10(6)/[facility] LABORATORY Hemoglobin 8.6 (L) 13.7 - [facility] 16.5 g/dL [facility] LAB[facility]ORY Hematocrit 25.2 (L) 40.5 - [facility] 48.5 % [facility] MCV 85.1 82.9 - [facility] 93.1 [facility] LABORATORY MCH 29.1 27.5 - [facility] 32.1 pg [facility] MCHC 34.1 32.0 - [facility] 35.7 g/dL [facility] Platelets 121 (L) 145 - 357 [facility] x10(3[facility] LABORATORY RDWSD 50.4 (H) 36.0 - [facility] 45.0 [facility] LABORATORY RDWCV 16.4 (H) 11.4 - [facility] 13.8 % [facility] LABORATORY MPV 10.6 7.6 - 12.9 [facility] LABORATORY nRBC % Auto 0.0 % [facility] LABORATORY nRBC Abs Auto 0.000 0.000 - [facility] [employer] 0.000 [facility] x10(3)/[facility] LABORATORY Specimen (Source) Anatomical Collection Method Collection Time Re ceived Time Location / / Volume Laterality Blood 02/10/2022 02/10/2022 12:4 0 AM EDT Resulting Agency Comment Spec In Lab Kaitlyn Rock MD HEMATOLOGY ORDERABLES Performing Organization Address City/[facility]/ZIP Code Phon e Number [address] Phosphorus (02/10/2022 12:00 AM EDT) athologist Signature Phosphorus 3.1 2.5 - 4.5 [facility] mg/dL [facility] LABOR[facility]ORY Specimen (Source) Anatomical Collection Method Collection Time Re ceived Time Location / / Volume Laterality Blood 02/10/2022 02/10/2022 12:4 0 AM EDT Resulting Agency Comment Spec In Lab Gela Novak MD CHEMISTRY ORDERABLES Performing Organization Address City/[facility]/ZIP Code Phon e Number [address] Magnesium (02/10/2022 12:00 AM EDT) athologist Signature Magnesium 0.87 0.69 - 1.07 [facility] mmol/L [facility] LABORATORY Specimen (Source) Anatomical Collection Method Collection Time Re ceived Time Location / / Volume Laterality Blood 02/10/2022 02/10/2022 12:4 0 AM EDT Resulting Agency Comment Spec In Lab Gela Novak MD CHEMISTRY ORDERABLES Performing Organization Address City/[facility] [place] [address] (ABNORMAL) Basic Metabolic Panel (non-fasting) (02/10/2022 12:00 AM EDT) P athologist Signature Glucose Lvl 164 65 - 199 [facility] mg/dL [facility] Comment: Diabetes: >=200 mg/dL plus symp toms BUN 21 (H) 10 - 20 mg/dL [facility] LABORATORY Creatinine 1.89 (H) 0.80 - 1.50 mg/dL [facility] LABORATORY Sodium 130 (L) 135 - 145 mmol/L [facility] LABORATORY Potassium 3.9 3.5 - 5.0 mmol/L [facility] LABORATORY Comment: Please note: ??Patients with WBC >100,00 0 may have falsely elevated Potassium levels. ??For accurate Potassium quantif ication in these patients send serum separator tube (gold top) for subsequent determinations. ??Contact the Clinical Chemistry Laboratory if there are any qu estions. Chloride 96 (L) 98 - 107 mmol/L [facility] LABORATORY CO2 22 22 - 31 mmol/L [facility] LABORATORY Anion Gap 12 5 - 15 mmol/L [facility] LABORATORY Calcium 7.2 (L) 8.5 - 10.5 mg/dL [facility] LABORATORY Estimated GFR 48 (L) >=60 mL/min/1.73 m?? [facility] LABORATORY Comment: This patient's estimated GFR [...] and symptoms in addition to eGFR. Specimen (Source) Anatomical Collection Method Collection Time Re ceived Time Location / / Volume Laterality Blood 02/10/2022 02/10/2022 12:4 0 AM EDT Resulting Agency Comment Spec In Lab Gela Novak MD CHEMISTRY ORDERABLES Performing Organization Address City/State/Z[place] [address] (ABNORMAL) Blood Gas Arterial ([facility]) (02/09/2022 5:43 PM EDT) Analysis Performed At Patho logist Time Signature pH Art 7.46 (H) 7.35 - [facility] 7.45 [facility] LABORATORY pCO2 Art 35 35 - 45 [facility] LABORATORY pO2 Art 73 (L) 85 - 104 [facility] LABORATORY HCO3 Art 24.8 20.0 - [facility] 26.0 [facility] mmol/L [facility] LABORATORY BE Art 1.1 -3.0 - 3.0 [facility] mmol/L [facility] LABORATORY Hgb Blood Gas 9.2 (L) 13.7 - [facility] 16.5 g/dL [facility] LAB[facility] O2HB Art 94.9 94.0 - [facility] 97.0 % [facility] LABOR[facility] COHB Art 0.5 % [facility] LABORATORY Comment: Nonsmokers: ??0.5-1.5% COHB Smokers: ??Variable, but usually less th an 10% Toxic: 20 - 30% COHB Lethal: ??Greater than 60% COHB METHB Art 0.3 <=1.5 % [facility] LABORATORY Na Whole Blood 126 (L) 135 - 145 mmol/L [facility] LABORATORY K Whole Blood 4.2 3.5 - 5.0 mmol/L [facility] LABORATORY Comment: Please note: ??Patients with WBC >100,00 0 may have falsely elevated Potassium levels. ??Contact the Clinical Chemistry Laboratory if there are any questions. ICa Whole Blood 1.12 (L) 1.15 - 1.33 mmol/L [facility] LABORATORY Comment: Note: ??Total bilirubin higher than 20 m g/dL may lead to falsely low ionized calcium. CL Whole Blood 100 98 - 107 mmol/L [facility] LABORATORY Gluc Whole Bld 97 65 - 199 mg/dL [facility] LABORATORY Comment: Diabetes: >=200 mg/dL plus symp toms. Lactate WB 1.1 0.5 - 2.2 mmol/L [facility] LABORATORY Specimen Anatomical Collection Method Collection Time Receive d Time (Source) Location / / Volume Laterality Blood Arterial Draw / 02/09/2022 5:43 PM 2021 5:43 Unknown EDT PM EDT Resulting Agency Comment Spec In Lab Kaitlyn Rock MD CHEMISTRY ORDERABLES Performing Organization Address City/State/Z[place] [address] Phosphorus (02/09/2022 5:35 PM EDT) P athologist Signature Phosphorus 3.2 2.5 - 4.5 [facility] mg/dL [facility] LABOR[facility]ORY Specimen Anatomical Collection Method Collection Time Receive d Time (Source) Location / / Volume Laterality Blood 02/09/2022 5:35 PM 2 5:44 EDT PM EDT Resulting Agency Comment Spec In Lab Parrish Betancourt MD CHEMISTRY ORDERABLES Performing Organization Address City/[facility]/ZIP [place] [address] (ABNORMAL) Electrolytes panel (02/09/2022 5:35 PM EDT) athologist Signature Sodium 132 (L) 135 - 145 [facility] mmol/L [facility] LABOR[facility]ORY Potassium 4.3 3.5 - 5.0 [facility] mmol/L [facility] LABOR[facility]ORY Comment: Please note: ??Patients with WBC >100,00 0 may have falsely elevated Potassium levels. ??For accurate Potassium quantif ication in these patients send serum separator tube (gold top) for subsequent determinations. ??Contact the Clinical Chemistry Laboratory if there are any qu estions. Chloride 100 98 - 107 mmol/L [facility] LABORATORY CO2 21 (L) 22 - 31 mmol/L [facility] LABORATORY Anion Gap 11 5 - 15 mmol/L [facility] LABORATORY Specimen Anatomical Collection Method Collection Time Receive d Time (Source) Location / / Volume Laterality Blood 02/09/2022 5:35 PM 2 5:44 EDT PM EDT Resulting Agency Comment Spec In Lab Parrish Betancourt MD CHEMISTRY ORDERABLES Performing Organization Address City/[facility]/ZIP [place] [address] (ABNORMAL) Sodium (02/09/2022 5:35 PM EDT) athologist Signature Sodium 132 (L) 135 - 145 [facility] mmol/L [facility] LAB[facility] Specimen Anatomical Collection Method Collection Time Receive d Time (Source) Location / / Volume Laterality Blood 02/09/2022 5:35 PM 2 5:44 EDT PM EDT Resulting Agency Comment Spec In Lab Parrish Betancourt MD CHEMISTRY ORDERABLES Performing Organization Address City/State/Z[place] [address] Anaerobic Culture (02/09/2022 4:26 PM EDT) [facility] Method Time Signature Anaerobic No anaerobic [facility] Culture organisms [facility] LABORATORY Specimen Anatomical Collection Method Collection Time Receive d Time (Source) Location / / Volume Laterality Thigh 02/09/2022 4:26 PM 5:23 EDT PM EDT Comment: Left thigh Resulting Agency Comment Spec In Lab Jeanette Chatterjee MD MICROBIOLOGY - GENERAL ORDER JT Performing Organization Address City/[facility] Code Phon e Number [address] (ABNORMAL) Tissue culture (02/09/2022 4:26 PM EDT) Component Value Ref Test Analysis Performed At [facility] Method Time Signature Tissue Few Pseudomonas aeruginosa MAR Y Culture Few Serratia marcescens [facility] OCK Susceptibilities previously reported [facility] LABORATORY Gram Stain Many Neutrophils seen [facility] Moderate Gram Negative Rods seen [place] Results called to and read back by Lilibeth Dial RN [facility] 02/09/22 18:20:09 [facility] () LABORATORY Organism Pseudomonas [facility] aeruginosa (A) [facility] LABORATORY Organism Serratia marcescens [facility] (A) [facility] LABORATORY Organism Gram Negative Rods [facility] (A) [facility] LABORATORY Specimen Anatomical Collection Method Collection Time Receive d Time (Source) Location / / Volume Laterality Thigh 02/09/2022 4:26 PM 5:23 EDT PM EDT Comment: Left thigh Resulting Agency Comment Spec In Lab Jeanette Chatterjee MD MICROBIOLOGY - GENERAL ORDER JT Performing Organization Address City/[facility]/[place] [facility] [place] [address] (ABNORMAL) Sodium (02/09/2022 12:29 PM EDT) athologist Signature Sodium 132 (L) 135 - 145 [facility] mmol/L [facility] LABORATORY Specimen Anatomical Collection Method Collection Time Receive d Time (Source) Location / / Volume Laterality Blood 02/09/2022 12:29 02/09/2022 PM EDT 12:29 PM EDT Resulting Agency Comment Spec In Lab Parrish Betancourt MD CHEMISTRY ORDERABLES Performing Organization Address City/State/ZIP [place] [address] (ABNORMAL) Blood Gas Arterial ([facility]) (02/09/2022 12:20 PM EDT) Analysis Performed At Patho logist Time Signature pH Art 7.47 (H) 7.35 - [facility] 7.45 [facility] LABORATORY pCO2 Art 33 (L) 35 - 45 [facility] mmHg [facility] pO2 Art 105 (H) 85 - 104 [facility] LABORATORY HCO3 Art 23.6 20.0 - [facility] 26.0 [facility] mmol/L [facility] LABORATORY BE Art -0.1 -3.0 - 3.0 [facility] mmol/L [facility] Hgb Blood Gas 9.6 (L) 13.7 - [facility] 16.5 g/dL [facility] O2HB Art 97.2 (H) 94.0 - [facility] 97.0 % [facility] COHB Art 0.8 % [facility] Comment: Nonsmokers: ??0.5-1.5% COHB Smokers: ??Variable, but usually less th an 10% Toxic: 20 - 30% COHB Lethal: ??Greater than 60% COHB METHB Art 0.3 <=1.5 % [facility] LABORATORY Na Whole Blood 126 (L) 135 - 145 mmol/L [facility] LABORATORY K Whole Blood 4.2 3.5 - 5.0 mmol/L [facility] LABORATORY Comment: Please note: ??Patients with WBC >100,00 0 may have falsely elevated Potassium levels. ??Contact the Clinical Chemistry Laboratory if there are any questions. ICa Whole Blood 1.16 1.15 - 1.33 mmol/L [facility] LABORATORY Comment: Note: ??Total bilirubin higher than 20 m g/dL may lead to falsely low ionized calcium. CL Whole Blood 99 98 - 107 mmol/L [facility] LABORATORY Gluc Whole Bld 97 65 - 199 mg/dL [facility] LABORATORY Comment: Diabetes: >=200 mg/dL plus symp toms. Lactate WB 1.1 0.5 - 2.2 mmol/L [facility] LABORATORY FIO2 Art 21 % [facility] LABORATORY PF Ratio Art 500 [facility] LABORATORY Temp Art 36.6 Celsius [facility] LABORATORY Specimen Anatomical Collection Method Collection Time Receive d Time (Source) Location / / Volume Laterality Blood Arterial Draw / 02/09/2022 12:20 02/10/20 22 Unknown PM EDT 12:27 PM EDT Resulting Agency Comment Spec In Lab Kaitlyn Rock MD CHEMISTRY ORDERABLES Performing Organization Address City/[facility]/[place] [facility] [place] [address] Phosphorus (02/09/2022 10:08 AM EDT) P athologist Signature Phosphorus 3.1 2.5 - 4.5 [facility] mg/dL [facility] Specimen Anatomical Collection Method Collection Time Receive d Time (Source) Location / / Volume Laterality Blood 02/09/2022 10:08 02/09/2022 AM EDT 10:34 AM EDT Resulting Agency Comment Spec In Lab Parrish Betancourt MD CHEMISTRY ORDERABLES Performing Organization Address City/[facility]/[place] [address] Phosphorus (02/09/2022 6:25 AM EDT) P athologist Signature Phosphorus 2.6 2.5 - 4.5 [facility] mg/dL [facility]ORY Specimen Anatomical Collection Method Collection Time Receive d Time (Source) Location / / Volume Laterality Blood 02/09/2022 6:25 AM 6:48 EDT AM EDT Resulting Agency Comment Spec In Lab Parrish Betancourt MD CHEMISTRY ORDERABLES Performing Organization Address City/[facility]/[place]IP [facility] [place] e Number [id number] (ABNORMAL) Sodium (02/09/2022 6:25 AM EDT) P athologist Signature Sodium 130 (L) 135 - 145 [facility] mmol/L [facility] LABORATORY Specimen Anatomical Collection Method Collection Time Receive d Time (Source) Location / / Volume Laterality Blood 02/09/2022 6:25 AM 2 6:48 EDT AM EDT Resulting Agency Comment Spec In Lab Parrish Betancourt MD CHEMISTRY ORDERABLES Performing Organization Address City/[facility]/ZIP Code Phon e Number [address] [employer] RBC (02/09/2022 5:45 AM EDT) Parrish Betancourt MD NURSING TREATMENT ORDERABLES - BLOOD ADMIN [employer] RBC (02/09/2022 5:45 AM EDT) Parrish Betancourt MD NURSING TREATMENT ORDERABLES - BLOOD ADMIN Type and Screen Validity (02/09/2022 2:30 AM EDT) [facility] Method Time Signature T&S only valid [facility] LABORATORY Comment: This Type and Screen result is only valid at the [facility] Specimen Anatomical Collection Method Collection Time Receive d Time (Source) Location / / Volume Laterality Blood 02/09/2022 2:30 AM 2 2:47 EDT AM EDT Resulting Agency Comment Spec In Lab Thomas Daniel MD BLOOD BANK ORDERABLES Performing Organization Address City/[facility]/ZIP Code Phon e Number [address] ABORH Recheck Status (02/09/2022 2:30 AM EDT) [facility] Method Time Signature ABORH Type Completed [facility] LABORATORY Specimen Anatomical Collection Method Collection Time Receive d Time (Source) Location / / Volume Laterality Blood 02/09/2022 2:30 AM 2 2:47 EDT AM EDT Resulting Agency Comment Spec In Lab Thomas Daniel MD BLOOD BANK ORDERABLES Performing Organization Address City/[facility]/[place] [address] Antibody screen (02/09/2022 2:30 AM EDT) Patholo gist Method Time Signature Ab Screen Negative [facility] LABORATORY Expires at 02/12/2022 [facility] [id number] on: [facility] LABORATORY Specimen Anatomical Collection Method Collection Time Receive d Time (Source) Location / / Volume Laterality Blood 02/09/2022 2:30 AM 2 2:47 EDT AM EDT Resulting Agency Comment Spec In Lab Thomas Daniel MD BLOOD BANK ORDERABLES Performing Organization Address City/[facility]/ZIP Code Phon e Number [address] ABO/Rh Typing (02/09/2022 2:30 AM EDT) P athologist Signature ABORh Type A Pos [facility] LABORATORY Specimen Anatomical Collection Method Collection Time Receive d Time (Source) Location / / Volume Laterality Blood 02/09/2022 2:30 AM 2 2:47 EDT AM EDT Resulting Agency Comment Spec In Lab Thomas Daniel MD BLOOD BANK ORDERABLES Performing Organization Address City/[facility]/ZIP Code Phon e Number [address] Prepare RBC (02/09/2022 2:20 AM EDT) P athologist Signature Dispensed? Yes [facility] LABORATORY Specimen Anatomical Collection Method Collection Time Receive d Time (Source) Location / / Volume Laterality Blood 02/09/2022 2:20 AM 2 2:21 EDT AM EDT Parrish Betancourt MD BLOOD BANK ORDERABLES Performing Organization Address City/[facility]/[place] [address] (ABNORMAL) BLOOD GAS 2 ARTERIAL (02/09/2022 1:02 AM EDT) Analysis Performed At Patho logist Time Signature pH Art 7.49 (H) 7.35 - [facility] 7.45 [facility] pCO2 Art 30 (L) 35 - 45 [facility] mmHg [facility] pO2 Art 92 85 - 104 [facility] LABORATORY HCO3 Art 22.5 20.0 - [facility] 26.0 [facility] mmol/L [facility] LABORATORY BE Art -0.9 -3.0 - 3.0 [facility] mmol/L [facility] Hgb Blood Gas 8.1 (L) 13.7 - [facility] 16.5 g/dL [facility] O2HB Art 95.1 94.0 - [facility] 97.0 % [facility] COHB Art 0.3 % [facility] LABOR[facility] Comment: Nonsmokers: 0.5-1.5% COHB Smokers: Variable, but usually less than 10% Toxic: 20-30% COHB Lethal: Greater than 60% COHB METHB Art 1.0 <=1.5 % [facility] LABORATORY Na Whole Blood 122 (L) 135 - 145 mmol/L [facility] LABORATORY K Whole Blood 3.9 3.5 - 5.0 mmol/L [facility] LABORATORY Comment: Please note: Patients with WBC >100,000 may have falsely elevated Potassium levels. Contact the Clinical Chemistry L aboratory if there are any questions. ICa Whole Blood 1.18 1.15 - 1.33 mmol/L [facility] LABORATORY Comment: Note: ??Total bilirubin higher than 20 m g/dL may lead to falsely low ionized calcium. CL Whole Blood 98 98 - 107 mmol/L [facility] LABORATORY Gluc Whole Bld 125 65 - 199 mg/dL [facility] LABORATORY Comment: Diabetes: >=200 mg/dL plus symp toms. Lactate WB 2.2 0.5 - 2.2 mmol/L [facility] LABORATORY Specimen Anatomical Collection Method Collection Time Receive d Time (Source) Location / / Volume Laterality Blood 02/09/2022 1:02 AM 2 1:02 EDT AM EDT Parrish Betancourt MD CHEMISTRY ORDERABLES Performing Organization Address City/State/ZIP [place] [address] Scan, Peripheral Blood (02/09/2022 12:55 AM EDT) [facility] Sajan Method Time Signature Plat Estimate Decreased [facility]ORAT[facility] RBC Morphology Abnormal [facility] Polychromasia Present >5/HPF [facility] Ovalocytes 1-5 /HPF [facility] Angel Cells 1-5 /HPF [facility] Stippled RBCs Present >1/HPF [facility] Pappenheimer Bdy Present >1/HPF [facility] Dohle Bodies Present [facility] Giant Platelets Less than 1 /HPF [facility] LABORATORY Specimen Anatomical Collection Method Collection Time Receive d Time (Source) Location / / Volume Laterality Blood 02/09/2022 12:55 02/09/2022 1:07 AM EDT AM EDT Resulting Agency Comment Spec In Lab Kaitlyn Rock MD HEMATOLOGY ORDERABLES Performing Organization Address City/State/[place] [address] (ABNORMAL) Differential, Automated (02/09/2022 12:55 AM EDT) [facility] Sajan Method Time Signature Neutrophils % 57.4 % [facility] LABORATORY Neutr Abs (ANC) 7.26 (H) 1.70 - [facility] 6.10 [facility] x10(3)/[facility] LABORATORY Lymphocytes % 10.1 % [facility] LABORATORY Lymphocytes Abs 1.3 0.9 - 3.2 [facility] x10(3)/[facility] LABORATORY Monocytes % 17.7 % [facility] LABORATORY Monocyte Abs 2.2 (H) 0.3 - 0.9 [facility] x10(3)/[facility] LABORATORY Eosinophils % 1.3 % [facility] LABORATORY Eosinophils Abs 0.2 0.0 - 0.4 [facility] x10(3)/[facility] LABORATORY Basophils % 0.4 % [facility] LABORATORY Basophils Abs 0.0 0.0 - 0.1 [facility] x10(3)/[facility] LABORATORY Immature Gran % 13.10 % [facility] LABORATORY Comment: Immature granulocytes(IG's)percentage an d absolute count will include metamyelocytes, myelocytes, and promyelo cytes. Blood smears from CBCs yielding IG's will be scanned manually for concor dance. If this scan disagrees with the automated IG or if promyelocytes are not ed, a manual differential will be performed. Gemini Gran Abs 1.65 (H) 0.00 - 0.04 x10(3)/[facility] LABORATORY Specimen Anatomical Collection Method Collection Time Receive d Time (Source) Location / / Volume Laterality Blood 02/09/2022 12:55 02/09/2022 1:07 AM EDT AM EDT Resulting Agency Comment Spec In Lab Kaitlyn Rock MD HEMATOLOGY ORDERABLES Performing Organization Address City/State/ZIP Code Phon e Number [place] [phone] HOSPITAL LABORATORY Drive (ABNORMAL) Hemogram (02/09/2022 12:55 AM EDT) [facility] gist Method Time Signature WBC 12.6 (H) 4.0 - 9.5 [facility] x10(3)/[facility] LABORATORY RBC 2.46 (L) 4.58 - [facility].54 [facility] x10(6)/[facility] LABORATORY Hemoglobin 7.1 (L) 13.7 - [facility] 16.5 g/dL [facility] Hematocrit 20.7 (L) 40.5 - [facility] 48.5 % [facility] MCV 84.1 82.9 - [facility] 93.1 [facility] LABORATORY MCH 28.9 27.5 - [facility] 32.1 pg [facility] MCHC 34.3 32.0 - [facility] 35.7 g/dL [facility] Platelets 97 (L) 145 - 357 [facility] x10(3)/[facility] LABORATORY RDWSD 49.4 (H) 36.0 - [facility] 45.0 [facility] LABORATORY RDWCV 17.8 (H) 11.4 - [facility] MANDO 13.8 % [facility] LABORAT[facility] MPV 9.8 7.6 - 12.9 [facility] LABORATORY nRBC % Auto 0.2 % [facility] LABORATORY nRBC Abs Auto 0.020 (H) 0.000 - [facility] 0.000 [facility] x10(3)/[facility] LABORATORY Specimen Anatomical Collection Method Collection Time Receive d Time (Source) Location / / Volume Laterality Blood 02/09/2022 12:55 02/09/2022 1:07 AM EDT AM EDT Resulting Agency Comment Spec In Lab Kaitlyn Rock MD HEMATOLOGY ORDERABLES Performing Organization Address City/State/ZIP [place] [address] (ABNORMAL) Basic Metabolic Panel (non-fasting) (02/09/2022 12:55 AM EDT) P athologist Signature Glucose Lvl 128 65 - 199 [facility] mg/dL [facility] Comment: Diabetes: >=200 mg/dL plus symp toms BUN 26 (H) 10 - 20 mg/dL [facility] LABORATORY Creatinine 2.46 (H) 0.80 - 1.50 mg/dL [facility] LABORATORY Sodium 126 (L) 135 - 145 mmol/L [facility] LABORATORY Potassium 4.2 3.5 - 5.0 mmol/L [facility] LABORATORY Comment: Please note: ??Patients with WBC >100,00 0 may have falsely elevated Potassium levels. ??For accurate Potassium quantif ication in these patients send serum separator tube (gold top) for subsequent determinations. ??Contact the Clinical Chemistry Laboratory if there are any qu estions. Chloride 95 (L) 98 - 107 mmol/L [facility] LABORAT[facility] CO2 22 22 - 31 mmol/L [facility]OR[facility] Anion Gap 9 5 - 15 mmol/L [facility] LABORATORY Calcium 7.7 (L) 8.5 - 10.5 mg/dL [facility] LABORATORY Estimated GFR 35 (L) >=60 mL/min/1.73 m?? [facility] Comment: This patient's estimated GFR [...] Location / / Volume Laterality Blood 02/09/2022 12:55 02/09/2022 1:07 AM EDT AM EDT Resulting Agency Comment Spec In Lab Gela Novak MD CHEMISTRY ORDERABLES Performing Organization Address City/[facility]/ZIP Code Phon e Number [address] (ABNORMAL) Phosphorus (02/09/2022 12:55 AM EDT) P athologist Signature Phosphorus 2.3 (L) 2.5 - 4.5 [facility] mg/dL [facility] Specimen Anatomical Collection Method Collection Time Receive d Time (Source) Location / / Volume Laterality Blood 02/09/2022 12:55 02/09/2022 1:07 AM EDT AM EDT Resulting Agency Comment Spec In Lab Gela Novak MD CHEMISTRY ORDERABLES Performing Organization Address City/[facility]/ZIP Code Phon e Number [address] Magnesium (02/09/2022 12:55 AM EDT) P athologist Signature Magnesium 0.94 0.69 - 1.07 [facility] mmol/L [facility] Specimen Anatomical Collection Method Collection Time Receive d Time (Source) Location / / Volume Laterality Blood 02/09/2022 12:55 02/09/2022 1:07 AM EDT AM EDT Resulting Agency Comment Spec In Lab Gela Novak MD CHEMISTRY ORDERABLES Performing Organization Address City/[facility]/ZIP [place] [address] Scan, Peripheral Blood (02/08/2022 6:00 PM EDT) [facility] Method Time Signature Plat Estimate Decreased [facility] LABORATORY RBC Morphology Abnormal [facility] Macrocytes 1-5 /HPF [facility] LABORAT[facility] Microcytes 1-5 /HPF [facility] LABORATORY Polychromasia Present >5/HPF [facility] Ovalocytes 1-5 /HPF [facility] LABORAT[facility] [place] Cells 1-5 /HPF [facility] Stippled RBCs Present >1/HPF [facility] Pappenheimer Bdy Present >1/HPF [facility] LABORAT[facility] Dohle Bodies Present [facility] LABORAT[facility] Giant Platelets Less than 1 /HPF [facility] LABORATORY Specimen Anatomical Collection Method Collection Time Receive d Time (Source) Location / / Volume Laterality Blood 02/08/2022 6:00 PM 6:21 EDT PM EDT Resulting Agency Comment Spec In Lab Rogers Solano APRN HEMATOLOGY ORDERABLES Performing Organization Address City/State/Z[place] [address] (ABNORMAL) Differential, Automated (02/08/2022 6:00 PM EDT) [facility] Method Time Signature Neutrophils % 64.6 % [facility] LABORATORY Neutr Abs (ANC) 7.81 (H) 1.70 - [facility] 6.10 [facility] x10(3)/[facility] L LABORATORY Lymphocytes % 7.2 % [facility] LABORATORY Lymphocytes Abs 0.9 0.9 - 3.2 [facility] x10(3)/[facility] LABORATORY Monocytes % 14.2 % [facility] LABORATORY Monocyte Abs 1.7 (H) 0.3 - 0.9 [facility] x10(3)/[facility] LABORATORY Eosinophils % 1.3 % [facility] LABORATORY Eosinophils Abs 0.2 0.0 - 0.4 [facility] x10(3)/[facility] LABORATORY Basophils % 0.5 % [facility] LABORATORY Basophils Abs 0.1 0.0 - 0.1 [facility] x10(3)/[facility] LABORATORY Immature Gran % 12.20 % [facility] LABORATORY Comment: Immature granulocytes(IG's)percentage an d absolute count will include metamyelocytes, myelocytes, and promyelo cytes. Blood smears from CBCs yielding IG's will be scanned manually for concor dance. If this scan disagrees with the automated IG or if promyelocytes are not ed, a manual differential will be performed. Gemini Gran Abs 1.48 (H) 0.00 - 0.04 x10(3)/[facility] LABORATORY Specimen Anatomical Collection Method Collection Time Receive d Time (Source) Location / / Volume Laterality Blood 02/08/2022 6:00 PM 6:21 EDT PM EDT Resulting Agency Comment Spec In Lab Rogers Solano APRN HEMATOLOGY ORDERABLES Performing Organization Address City/State/[place] [address] (ABNORMAL) Hemogram (02/08/2022 6:00 PM EDT) [facility] gist Method Time Signature WBC 12.1 (H) 4.0 - 9.5 [facility] x10(3)/[facility] LABORATORY RBC 2.57 (L) 4.58 - [facility] 5.[facility] x10(6)/[facility] LABORATORY Hemoglobin 7.5 (L) 13.7 - [facility] 16.5 g/dL [facility] Hematocrit 21.6 (L) 40.5 - [facility] 48.5 % [facility] MCV 84.0 82.9 - [facility] 93.1 [facility] LABORATORY MCH 29.2 27.5 - [facility] 32.1 pg [facility] MCHC 34.7 32.0 - [facility] 35.7 g/dL [facility] Platelets 80 (L) 145 - 357 [facility] x10(3)/[facility] LABORATORY RDWSD 48.9 (H) 36.0 - [facility] 45.0 [facility] RDWCV 17.9 (H) 11.4 - [facility] 13.8 % [facility] MPV 10.1 7.6 - 12.9 [facility] nRBC % Auto 0.2 % [facility] nRBC Abs Auto 0.020 (H) 0.000 - [facility] 0.000 [facility] x10(3)/[facility] LABORATORY Specimen Anatomical Collection Method Collection Time Receive d Time (Source) Location / / Volume Laterality Blood 02/08/2022 6:00 PM 6:21 EDT PM EDT Resulting Agency Comment Spec In Lab Rogers Solano APRN HEMATOLOGY ORDERABLES Performing Organization Address City/State/ZIP Code Phon e Number [place] [phone] HOSPITAL LABORATORY Drive (ABNORMAL) Blood Gas Arterial ([facility]) (02/08/2022 6:00 PM EDT) Analysis Performed At Patho logist Time Signature pH Art 7.46 (H) 7.35 - [facility] 7.45 [facility]OR[facility] pCO2 Art 32 (L) 35 - 45 [facility] LABORATORY pO2 Art 89 85 - 104 [facility] LABORATORY HCO3 Art 22.4 20.0 - [facility] 26.0 [facility] mmol/L [facility] LABORATORY BE Art -1.4 -3.0 - 3.0 [facility] mmol/L [facility] Hgb Blood Gas 8.0 (L) 13.7 - [facility] 16.5 g/dL [facility] O2HB Art 95.8 94.0 - [facility] 97.0 % [facility] COHB Art 0.8 % [facility] LABORATORY Comment: Nonsmokers: ??0.5-1.5% COHB Smokers: ??Variable, but usually less th an 10% Toxic: 20 - 30% COHB Lethal: ??Greater than 60% COHB METHB Art 0.0 <=1.5 % [facility] LABORATORY Na Whole Blood 124 (L) 135 - 145 mmol/L [facility] LABORATORY K Whole Blood 4.7 3.5 - 5.0 mmol/L [facility] LABORATORY Comment: Please note: ??Patients with WBC >100,00 0 may have falsely elevated Potassium levels. ??Contact the Clinical Chemistry Laboratory if there are any questions. ICa Whole Blood 1.21 1.15 - 1.33 mmol/L [facility] LABORATORY Comment: Note: ??Total bilirubin higher than 20 m g/dL may lead to falsely low ionized calcium. CL Whole Blood 99 98 - 107 mmol/L [facility] LABORATORY Gluc Whole Bld 84 65 - 199 mg/dL [facility] LABORATORY Comment: Diabetes: >=200 mg/dL plus symp toms. Lactate WB 1.2 0.5 - 2.2 mmol/L [facility] LABORATORY Specimen Anatomical Collection Method Collection Time Receive d Time (Source) Location / / Volume Laterality Blood Arterial Draw / 02/08/2022 6:00 PM 2021 6:18 Unknown EDT PM EDT Resulting Agency Comment Spec In Lab Kaitlyn Rock MD CHEMISTRY ORDERABLES Performing Organization Address City/State/Z[place] [address] (ABNORMAL) Sodium (02/08/2022 6:00 PM EDT) P athologist Signature Sodium 129 (L) 135 - 145 [facility] mmol/L [facility] Specimen Anatomical Collection Method Collection Time Receive d Time (Source) Location / / Volume Laterality Blood 02/08/2022 6:00 PM 6:21 EDT PM EDT Resulting Agency Comment Spec In Lab Parrish Betancourt MD CHEMISTRY ORDERABLES Performing Organization Address City/State/ZIP Code Phon e Number [address] POCT Glucose (02/08/2022 5:56 PM EDT) P athologist Signature POC Glucose 92 65 - 199 [facility] mg/dL [facility] Comment: Supplemental ranges: <140 mg/dL before meals <180 mg/dL all other times of the day Specimen Anatomical Collection Method Collection Time Receive d Time (Source) Location / / Volume Laterality Blood 02/08/2022 5:56 PM 5:56 EDT PM EDT Parrish Betancourt MD POINT OF CARE TEST ORDERABLE S Performing Organization Address City/[facility]/Z[place] [address] Anaerobic Culture (02/08/2022 4:13 PM EDT) [facility] Signature Anaerobic No anaerobic [facility] Culture organisms [facility] LABORATORY Specimen Anatomical Collection Method Collection Time Receive d Time (Source) Location / / Volume Laterality Deep Wound STRUCTURE OF LEFT 02/08/2022 4:13 PM 01/29 4:33 THIGH / Unknown EDT PM EDT Comment: Left thigh #2 Resulting Agency Comment Spec In Lab Jeanette Chatterjee MD MICROBIOLOGY - GENERAL ORDER JT Performing Organization Address City/[facility]/[place] [address] (ABNORMAL) Abscess/Wound Aspirate Culture (02/08/2022 4:13 PM EDT) [facility] Method Time Signature Abscess/Wound Many Pseudomonas aeruginosa [facility] Aspirate Many Serratia marcescens [facility] () [facility] Gram Stain Many Neutrophils seen JOS[facility] Many Gram Negative Rods seen [facility] () [facility] Organism Pseudomonas J[facility] aeruginosa (A) [facility] LABORATORY Organism Serratia J[facility] marcescens (A) [facility] LABORATORY Organism Gram Negative J[facility] Rods (A) [facility] LABORATORY Specimen Anatomical Collection Method Collection Time Receive d Time (Source) Location / / Volume Laterality Deep Wound STRUCTURE OF LEFT 02/08/2022 4:13 PM 01/29 4:33 THIGH / Unknown EDT PM EDT Comment: Left thigh #2 Resulting Agency Comment Spec In Lab Organism Antibiotic Method Susceptibility Pseudomonas aeruginosa Amikacin MICROSCAN METHOD Sensitiv e Pseudomonas aeruginosa Aztreonam MICROSCAN METHOD Sensitiv e Pseudomonas aeruginosa Cefepime MICROSCAN METHOD <=2: Sen sitive Pseudomonas aeruginosa Ceftazidime MICROSCAN METHOD <=2: Sen sitive Pseudomonas aeruginosa Ciprofloxacin MICROSCAN METHOD Sensitiv e [...] Sen sitive Pseudomonas aeruginosa Piperacillin/Tazobactam MICROSCAN METHOD <=8: Sensitive Pseudomonas aeruginosa Tobramycin MICROSCAN METHOD Sensitiv e Serratia marcescens Amikacin VITEK 2 METHOD Sensitive [...] Serratia marcescens Trimethoprim/Sulfa VITEK 2 METHOD Sensitive Jeanette Chatterjee MD MICROBIOLOGY - GENERAL ORDER JT Performing Organization Address City/State/Z[place] [address] Anaerobic Culture (02/08/2022 4:13 PM EDT) [facility] Method Time Signature Anaerobic No anaerobic [facility] Culture organisms [facility] LABORATORY Specimen Anatomical Collection Method Collection Time Receive d Time (Source) Location / / Volume Laterality Deep Wound STRUCTURE OF LEFT 02/08/2022 4:13 PM 01/29 4:32 THIGH / Unknown EDT PM EDT Comment: Left thigh #1 Resulting Agency Comment Spec In Lab Jeanette Chatterjee MD MICROBIOLOGY - GENERAL ORDER JT Performing Organization Address City/State/ZIP [place] [address] (ABNORMAL) Abscess/Wound Aspirate Culture (02/08/2022 4:13 PM EDT) Component Value Ref Test Analysis Performed At [facility] gist Range Method Time Signature Abscess/Woun Many Pseudomonas aeruginosa JOS[facility] d Aspirate Many Serratia marcescens [facility] Culture Susceptibilities previously reported [facility] LABORATORY Gram Stain Many Neutrophils seen JOS[facility] Moderate Gram Negative Rods seen [facility] LABORATORY Organism Pseudomonas JOS[facility] aeruginosa (A) [facility] LABORATORY Organism Serratia marcescens JOS[facility] (A) [facility] LABORATORY Specimen Anatomical Collection Method Collection Time Receive d Time (Source) Location / / Volume Laterality Deep Wound STRUCTURE OF LEFT 02/08/2022 4:13 PM 01/29 4:32 THIGH / Unknown EDT PM EDT Comment: Left thigh #1 Resulting Agency Comment Spec In Lab Jeanette Chatterjee MD MICROBIOLOGY - GENERAL ORDER JT Performing Organization Address City/State/ZIP Code Phon e Number [address] POCT Glucose (02/08/2022 12:09 PM EDT) athologist Signature POC Glucose 126 65 - 199 [facility]dL [facility] Comment: Supplemental ranges: <140 mg/dL before meals <180 mg/dL all other times of the day Specimen Anatomical Collection Method Collection Time Receive d Time (Source) Location / / Volume Laterality Blood 02/08/2022 12:09 02/08/2022 PM EDT 12:09 PM EDT Parrish Betancourt MD POINT OF CARE TEST ORDERABLE S Performing Organization Address City/State/ZIP Code Phon e Number [address] POCT Glucose (02/08/2022 12:09 PM EDT) athologist Signature POC Glucose 100 65 - 199 [facility]dL [facility] Comment: Supplemental ranges: <140 mg/dL before meals <180 mg/dL all other times of the day Specimen Anatomical Collection Method Collection Time Receive d Time (Source) Location / / Volume Laterality Blood 02/08/2022 12:09 02/08/2022 PM EDT 12:09 PM EDT Parrish Betancourt MD POINT OF CARE TEST ORDERABLE S Performing Organization Address City/State/ZIP [place] [address] (ABNORMAL) Blood Gas Arterial (NLH) (02/08/2022 12:00 PM EDT) Analysis Performed At Patho logist Time Signature pH Art 7.47 (H) 7.35 - [facility] 7.45 [facility] pCO2 Art 32 (L) 35 - 45 [facility] mmHg [facility] pO2 Art 129 (H) 85 - 104 [facility] LABORATORY HCO3 Art 22.9 20.0 - [facility] 26.0 [facility] mmol/[facility] LABORATORY BE Art -0.7 -3.0 - 3.0 [facility] mmol/L [facility] Hgb Blood Gas 8.1 (L) 13.7 - [facility] 16.5 g/dL [facility] O2HB Art 97.5 (H) 94.0 - [facility] 97.0 % [facility] COHB Art 0.9 % [facility] Comment: Nonsmokers: ??0.5-1.5% COHB Smokers: ??Variable, but usually less th an 10% Toxic: 20 - 30% COHB Lethal: ??Greater than 60% COHB METHB Art 0.0 <=1.5 % [facility] LABORATORY Na Whole Blood 123 (L) 135 - 145 mmol/L [facility] LABORATORY K Whole Blood 4.7 3.5 - 5.0 mmol/L [facility] Comment: Please note: ??Patients with WBC >100,00 0 may have falsely elevated Potassium levels. ??Contact the Clinical Chemistry Laboratory if there are any questions. ICa Whole Blood 1.26 1.15 - 1.33 mmol/L [facility] Comment: Note: ??Total bilirubin higher than 20 m g/dL may lead to falsely low ionized calcium. CL Whole Blood 98 98 - 107 mmol/L [facility] Gluc Whole Bld 92 65 - 199 mg/dL [facility] Comment: Diabetes: >=200 mg/dL plus symp toms. Lactate WB 0.9 0.5 - 2.2 mmol/L [facility] Specimen Anatomical Collection Method Collection Time Receive d Time (Source) Location / / Volume Laterality Blood Arterial Draw / 02/08/2022 12:00 02/09/20 22 Unknown PM EDT 12:21 PM EDT Resulting Agency Comment Spec In Lab Angelina Reynoso MD CHEMISTRY ORDERABLES Performing Organization Address City/State/ZIP Code Phon e Number [address] (ABNORMAL) Sodium (02/08/2022 12:00 PM EDT) P athologist Signature Sodium 127 (L) 135 - 145 [facility] mmol/L [facility] Specimen Anatomical Collection Method Collection Time Receive d Time (Source) Location / / Volume Laterality Blood 02/08/2022 12:00 02/08/2022 PM EDT 12:23 PM EDT Resulting Agency Comment Spec In Lab Parrish Betancourt MD CHEMISTRY ORDERABLES Performing Organization Address City/[facility]/ZIP Code Phon e Number [address] (ABNORMAL) Calcium Ionized Whole Blood, HONORIO (02/08/2022 11:00 AM EDT) Analysis Performed At Patho logist Time Signature pH Honorio 7.46 (H) 7.32 - [facility] 7.42 [facility] ICa Whole 1.26 1.15 - [facility] Blood 1.33 [facility] mmol/[facility] LAB[facility]ORY Comment: Note: ??Total bilirubin higher than 20 m g/dL may lead to falsely low ionized calcium. Specimen Anatomical Collection Method Collection Time Receive d Time (Source) Location / / Volume Laterality Blood ARTERIAL LINE / 02/08/2022 11:00 02/09/20 22 Unknown AM EDT 11:09 AM EDT Resulting Agency Comment Spec In Lab Parrish Betancourt MD CHEMISTRY ORDERABLES Performing Organization Address City/[facility]/ZIP Code Phon e Number [address] POCT Glucose (02/08/2022 9:56 AM EDT) athologist Signature POC Glucose 96 65 - 199 [facility] mg/dL [facility] Comment: Supplemental ranges: <140 mg/dL before meals <180 mg/dL all other times of the day Specimen Anatomical Collection Method Collection Time Receive d Time (Source) Location / / Volume Laterality Blood 02/08/2022 9:56 AM 9:56 EDT AM EDT Parrish Betancourt MD POINT OF CARE TEST ORDERABLE S Performing Organization Address City/State/ZIP [place] [address] (ABNORMAL) BLOOD GAS 2 ARTERIAL (02/08/2022 8:15 AM EDT) athologist Signature pH Art 7.44 7.35 - [facility] 7.45 [facility] pCO2 Art 36 35 - 45 [facility] LABORATORY pO2 Art 108 (H) 85 - 104 [facility] LABORATORY HCO3 Art 23.8 20.0 - [facility] 26.0 [facility] mmol/L [facility] LABORATORY BE Art -0.3 -3.0 - 3.0 [facility] mmol/L [facility] Hgb Blood Gas 7.8 (L) 13.7 - [facility] 16.5 g/dL [facility] O2HB Art 95.7 94.0 - [facility] 97.0 % [facility] COHB Art 0.1 % [facility] Comment: Nonsmokers: 0.5-1.5% COHB Smokers: Variable, but usually less than 10% Toxic: 20-30% COHB Lethal: Greater than 60% COHB METHB Art 1.3 <=1.5 % [facility] Na Whole Blood 122 (L) 135 - 145 mmol/L [facility] LABORATORY K Whole Blood 4.6 3.5 - 5.0 mmol/L [facility] Comment: Please note: Patients with WBC >100,000 may have falsely elevated Potassium levels. Contact the Clinical Chemistry L aboratory if there are any questions. ICa Whole Blood 1.27 1.15 - 1.33 mmol/L [facility] Comment: Note: ??Total bilirubin higher than 20 m g/dL may lead to falsely low ionized calcium. CL Whole Blood 98 98 - 107 mmol/L [facility] Gluc Whole Bld 92 65 - 199 mg/dL [facility] Comment: Diabetes: >=200 mg/dL plus symp toms. Lactate WB 0.9 0.5 - 2.2 mmol/L [facility] FIO2 Art 21 % [facility] PF Ratio Art 514 [facility] Specimen Anatomical Collection Method Collection Time Receive d Time (Source) Location / / Volume Laterality Blood 02/08/2022 8:15 AM 2 8:15 EDT AM EDT Jayme Armstrong MD CHEMISTRY ORDERABLES Performing Organization Address City/[facility]/ZIP Code Phon e Number [address] POCT Glucose (02/08/2022 7:42 AM EDT) P athologist Signature POC Glucose 98 65 - 199 [facility] Comment: Supplemental ranges: <140 mg/dL before meals <180 mg/dL all other times of the day Specimen Anatomical Collection Method Collection Time Receive d Time (Source) Location / / Volume Laterality Blood 02/08/2022 7:42 AM 2 7:42 EDT AM EDT Jayme Armstrong MD POINT OF CARE TEST ORDERABLE S Performing Organization Address City/State/ZIP Code Phon e Number [address] Phosphorus (02/08/2022 5:57 AM EDT) P athologist Signature Phosphorus 3.9 2.5 - 4.5 [facility] mg/[facility] Specimen Anatomical Collection Method Collection Time Receive d Time (Source) Location / / Volume Laterality Blood 02/08/2022 5:57 AM 2 5:58 EDT AM EDT Resulting Agency Comment Spec In Lab Gela Novak MD CHEMISTRY ORDERABLES Performing Organization Address City/State/ZIP Code Phon e Number [address] Magnesium (02/08/2022 5:57 AM EDT) athologist Signature Magnesium 0.91 0.69 - 1.07 [facility] mmol/L [facility] Specimen Anatomical Collection Method Collection Time Receive d Time (Source) Location / / Volume Laterality Blood 02/08/2022 5:57 AM 2 5:58 EDT AM EDT Resulting Agency Comment Spec In Lab Gela Novak MD CHEMISTRY ORDERABLES Performing Organization Address City/[facility]/ZIP Code Phon e Number [address] (ABNORMAL) Basic Metabolic Panel (non-fasting) (02/08/2022 5:57 AM EDT) athologist Signature Glucose Lvl 92 65 - 199 [facility] mg/dL [facility] Comment: Diabetes: >=200 mg/dL plus symp toms BUN 29 (H) 10 - 20 mg/dL [facility] LABORATORY Creatinine 2.94 (H) 0.80 - 1.50 mg/dL [facility] Comment: result rechecked-red Sodium 126 (L) 135 - 145 mmol/L [facility] LABORATORY Potassium 4.9 3.5 - 5.0 mmol/L [facility] Comment: Please note: ??Patients with WBC >100,00 0 may have falsely elevated Potassium levels. ??For accurate Potassium quantif ication in these patients send serum separator tube (gold top) for subsequent determinations. ??Contact the Clinical Chemistry Laboratory if there are any qu estions. Chloride 97 (L) 98 - 107 mmol/L [facility] CO2 22 22 - 31 mmol/L [facility] Anion Gap 7 5 - 15 mmol/L [facility] Calcium 8.5 8.5 - 10.5 mg/dL [facility] Comment: result rechecked-red Estimated GFR 28 (L) >=60 mL/min/1.73 m?? [facility] Comment: This patient's estimated GFR [...] Location / / Volume Laterality Blood 02/08/2022 5:57 AM 5:58 EDT AM EDT Resulting Agency Comment Spec In Lab Rogers Solano APRN CHEMISTRY ORDERABLES Performing Organization Address City/State/ZIP [place] [address] (ABNORMAL) BLOOD GAS 2 ARTERIAL (02/08/2022 5:54 AM EDT) Analysis Performed At Patho logist Time Signature pH Art 7.47 (H) 7.35 - [facility] 7.45 [facility] pCO2 Art 30 (L) 35 - 45 [facility] mmHg [facility] pO2 Art 87 85 - 104 [facility] mmHg [facility] HCO3 Art 21.5 20.0 - [facility] 26.0 [facility] mmol/L [facility] LABOR[facility] BE Art -2.1 -3.0 - 3.0 [facility] mmol/L [facility] Hgb Blood Gas 7.7 (L) 13.7 - [facility] 16.5 g/dL [facility] O2HB Art 94.2 94.0 - [facility] 97.0 % [facility] COHB Art 0.3 % [facility] Comment: Nonsmokers: 0.5-1.5% COHB Smokers: Variable, but usually less than 10% Toxic: 20-30% COHB Lethal: Greater than 60% COHB METHB Art 1.0 <=1.5 % [facility] Na Whole Blood 122 (L) 135 - 145 mmol/L [facility] K Whole Blood 4.8 3.5 - 5.0 mmol/L [facility] Comment: Please note: Patients with WBC >100,000 may have falsely elevated Potassium levels. Contact the Clinical Chemistry L aboratory if there are any questions. ICa Whole Blood 1.28 1.15 - 1.33 mmol/L [facility] Comment: Note: ??Total bilirubin higher than 20 m g/dL may lead to falsely low ionized calcium. CL Whole Blood 98 98 - 107 mmol/L [facility] Gluc Whole Bld 87 65 - 199 mg/dL [facility] Comment: Diabetes: >=200 mg/dL plus symp toms. Lactate WB 1.1 0.5 - 2.2 mmol/L [facility] FIO2 Art 21 % [facility] PF Ratio Art 414 [facility] Temp Art 37.2 Celsius [facility] Specimen Anatomical Collection Method Collection Time Receive d Time (Source) Location / / Volume Laterality Blood 02/08/2022 5:54 AM 5:54 EDT AM EDT Jayme Armstrong MD CHEMISTRY ORDERABLES Performing Organization Address City/State/ZIP [place] [address] Scan, Peripheral Blood (02/08/2022 1:00 AM EDT) [facility] g[facility] Method Time Signature Plat Estimate Decreased [facility] RBC Morphology Abnormal [facility] Polychromasia Present >5/HPF [facility] Ovalocytes 1-5 /HPF [facility] [place] Cells 1-5 /HPF [facility] Toxic Granulation Present [facility] Specimen Anatomical Collection Method Collection Time Receive d Time (Source) Location / / Volume Laterality Blood 02/08/2022 1:00 AM 2 1:20 EDT AM EDT Resulting Agency Comment Spec In Lab Danielle Ramirez MD HEMATOLOGY ORDERABLES Performing Organization Address City/State/ZIP [place] [address] (ABNORMAL) Differential, Automated (02/08/2022 1:00 AM EDT) [facility] Method Time Signature Neutrophils % 67.2 % [facility] Neutr Abs (ANC) 12.53 (H) 1.70 - [facility] 6.10 [facility] x10(3)/[facility] LABORATORY Lymphocytes % 8.1 % [facility] Lymphocytes Abs 1.5 0.9 - 3.2 [facility] x10(3)/[facility] LABORATORY Monocytes % 13.3 % [facility] Monocyte Abs 2.5 (H) 0.3 - 0.9 [facility] x10(3)/[facility] LABORATORY Eosinophils % 1.2 % [facility] Eosinophils Abs 0.2 0.0 - 0.4 [facility] x10(3)/[facility] LABORATORY Basophils % 0.5 % [facility] Basophils Abs 0.1 0.0 - 0.1 [facility] x10(3)/[facility] LABORATORY Immature Gran % 9.70 % [facility] Comment: Immature granulocytes(IG's)percentage an d absolute count will include metamyelocytes, myelocytes, and promyelo cytes. Blood smears from CBCs yielding IG's will be scanned manually for concor dance. If this scan disagrees with the automated IG or if promyelocytes are not ed, a manual differential will be performed. Gemini Gran Abs 1.81 (H) 0.00 - 0.04 x10(3)/[facility] LABORATORY Specimen Anatomical Collection Method Collection Time Receive d Time (Source) Location / / Volume Laterality Blood 02/08/2022 1:00 AM 2 1:20 EDT AM EDT Resulting Agency Comment Spec In Lab Danielle Ramirez MD HEMATOLOGY ORDERABLES Performing Organization Address City/State/ZIP [place] [address] (ABNORMAL) Hemogram (02/08/2022 1:00 AM EDT) [facility] Method Time Signature WBC 18.6 (H) 4.0 - 9.5 [facility] x[facility](3[facility] LABORATORY RBC 2.51 (L) 4.58 - [facility] 5.54 [facility] x10(6)/[facility] LABORATORY Hemoglobin 7.3 (L) 13.7 - [facility] 16.5 g/dL [facility] Hematocrit 20.7 (L) 40.5 - [facility] 48.5 % [facility] MCV 82.5 (L) 82.9 - [facility] 93.1 [facility] LABORATORY MCH 29.1 27.5 - [facility] 32.1 pg [facility] MCHC 35.3 32.0 - [facility] 35.7 g/dL [facility] Platelets 97 (L) 145 - 357 [facility] x10(3)/[facility] LABORATORY RDWSD 42.7 36.0 - [facility] 45.0 [facility] LABORATORY RDWCV 15.6 (H) 11.4 - [facility] 13.8 % [facility] MPV 9.7 7.6 - 12.9 [facility] LABORATORY nRBC % Auto 0.5 % [facility] nRBC Abs Auto 0.100 (H) 0.000 - [facility] 0.000 [facility] x10(3)/[facility] LABORATORY Specimen Anatomical Collection Method Collection Time Receive d Time (Source) Location / / Volume Laterality Blood 02/08/2022 1:00 AM 2 1:20 EDT AM EDT Resulting Agency Comment Spec In Lab Danielle Ramirez MD HEMATOLOGY ORDERABLES Performing Organization Address City/State/ZIP [place] [address] (ABNORMAL) Fibrinogen (02/08/2022 1:00 AM EDT) athologist Signature Fibrinogen 423 (H) 200 - 393 [facility] mg/dL [facility] Comment: A fibrinogen level >100 mg/dL is adequat e for hemostasis in most patients without underlying bleeding disorders. Specimen Anatomical Collection Method Collection Time Receive d Time (Source) Location / / Volume Laterality Blood 02/08/2022 1:00 AM 2 1:20 EDT AM EDT Resulting Agency Comment Spec In Lab Jayme Armstrong MD HEMATOLOGY ORDERABLES Performing Organization Address City/[facility]/[place] [facility] [place] Ph[place] Number [address] APTT (02/08/2022 1:00 AM EDT) athologist Signature PTT 25 25 - 37 sec [facility] Comment: The PTT is NOT [...] Armstrong MD HEMATOLOGY ORDERABLES Performing Organization Address City/[facility] [place] [address] Prothrombin Time (02/08/2022 1:00 AM EDT) athologist Signature PT 12.2 9.4 - 12.5 [facility] LABORATORY INR 1.1 [facility] Comment: An INR <2.0 indicates [...] Organization Address City/State/ZIP [place] [address] (ABNORMAL) Blood Gas Arterial ([facility]) (02/08/2022 12:01 AM EDT) Analysis Performed At Patho logist Time Signature pH Art 7.47 (H) 7.35 - [facility] 7.45 [facility] pCO2 Art 32 (L) 35 - 45 [facility] mmHg [facility] pO2 Art 87 85 - 104 [facility] LABORATORY HCO3 Art 22.6 20.0 - [facility] 26.0 [facility] mmol/L [facility] LABORATORY BE Art -1.1 -3.0 - 3.0 [facility] mmol/L [facility] Hgb Blood Gas 7.7 (L) 13.7 - [facility] 16.5 g/dL [facility] O2HB Art 95.4 94.0 - [facility] 97.0 % [facility] COHB Art 1.0 % [facility] Comment: Nonsmokers: ??0.5-1.5% COHB Smokers: ??Variable, but usually less th an 10% Toxic: 20 - 30% COHB Lethal: ??Greater than 60% COHB METHB Art 0.1 <=1.5 % [facility] Na Whole Blood 122 (L) 135 - 145 mmol/L [facility]OR[facility] K Whole Blood 4.6 3.5 - 5.0 mmol/L [facility] Comment: Please note: ??Patients with WBC >100,00 0 may have falsely elevated Potassium levels. ??Contact the Clinical Chemistry Laboratory if there are any questions. ICa Whole Blood 1.24 1.15 - 1.33 mmol/L [facility] Comment: Note: ??Total bilirubin higher than 20 m g/dL may lead to falsely low ionized calcium. CL Whole Blood 99 98 - 107 mmol/L [facility] Gluc Whole Bld 89 65 - 199 mg/dL [facility] Comment: Diabetes: >=200 mg/dL plus symp toms. Lactate WB 1.1 0.5 - 2.2 mmol/L [facility] Specimen Anatomical Collection Method Collection Time Receive d Time (Source) Location / / Volume Laterality Blood Arterial Draw / 02/08/2022 12:01 02/09/20 22 Unknown AM EDT 12:16 AM EDT Resulting Agency Comment Spec In Lab Angelina Reynoso MD CHEMISTRY ORDERABLES Performing Organization Address City/State/ZIP Code Phon e Number [address] (ABNORMAL) Sodium (02/08/2022 12:01 AM EDT) P athologist Signature Sodium 125 (L) 135 - 145 [facility] mmol/L [facility] Specimen Anatomical Collection Method Collection Time Receive d Time (Source) Location / / Volume Laterality Blood 02/08/2022 12:01 02/08/2022 AM EDT 12:15 AM EDT Resulting Agency Comment Spec In Lab Parrish Betancourt MD CHEMISTRY ORDERABLES Performing Organization Address City/State/ZIP Code Phon e Number [address] Prepare RBC (02/07/2022 7:40 PM EDT) P athologist Signature Dispensed? Yes [facility] Specimen Anatomical Collection Method Collection Time Receive d Time (Source) Location / / Volume Laterality Blood 02/07/2022 7:40 PM 7:39 EDT PM EDT Jayme Armstrong MD BLOOD BANK ORDERABLES Performing Organization Address City/State/Z[place] [address] (ABNORMAL) BLOOD GAS 2 ARTERIAL (02/07/2022 6:08 PM EDT) Analysis Performed At Patho logist Time Signature pH Art 7.50 (H) 7.35 - [facility] 7.45 [facility] pCO2 Art 27 (L) 35 - 45 [facility] LABORATORY pO2 Art 81 (L) 85 - 104 [facility] LABORATORY HCO3 Art 20.8 20.0 - [facility] 26.0 [facility] mmol/L [facility] LABORAT[facility] BE Art -2.4 -3.0 - 3.0 [facility] mmol/L [facility] Hgb Blood Gas 8.5 (L) 13.7 - [facility] 16.5 g/dL [facility] O2HB Art 93.9 (L) 94.0 - [facility] 97.0 % [facility] COHB Art 0.3 % [facility] Comment: Nonsmokers: 0.5-1.5% COHB Smokers: Variable, but usually less than 10% Toxic: 20-30% COHB Lethal: Greater than 60% COHB METHB Art 1.0 <=1.5 % [facility] Na Whole Blood 119 (Critical) 135 - 145 mmol/L [facility] Comment: Noted by instrumental teacher. K Whole Blood 5.1 (H) 3.5 - 5.0 mmol/L [facility] Comment: Please note: Patients with WBC >100,000 may have falsely elevated Potassium levels. Contact the Clinical Chemistry L aboratory if there are any questions. ICa Whole Blood 1.18 1.15 - 1.33 mmol/L [facility] Comment: Note: ??Total bilirubin higher than 20 m g/dL may lead to falsely low ionized calcium. CL Whole Blood 96 (L) 98 - 107 mmol/L [facility] Gluc Whole Bld 100 65 - 199 mg/dL [facility] Comment: Diabetes: >=200 mg/dL plus symp toms. Lactate WB 1.4 0.5 - 2.2 mmol/L [facility] Flow Art 21.0 LPM [facility] Specimen Anatomical Collection Method Collection Time Receive d Time (Source) Location / / Volume Laterality Blood 02/07/2022 6:08 PM 6:08 EDT PM EDT Jayme Armstrong MD CHEMISTRY ORDERABLES Performing Organization Address City/State/[place] [address] Scan, Peripheral Blood (02/07/2022 6:05 PM EDT) [facility] Method Time Signature Plat Estimate Decreased [facility] RBC Morphology Abnormal [facility] Polychromasia Present >5/HPF [facility] Angel Cells 1-5 /HPF [facility] Stippled RBCs Present >1/HPF [facility] Specimen Anatomical Collection Method Collection Time Receive d Time (Source) Location / / Volume Laterality Blood 02/07/2022 6:05 PM 6:10 EDT PM EDT Resulting Agency Comment Spec In Lab Rogers Solano APRN HEMATOLOGY ORDERABLES Performing Organization Address [facility] [place] [address] (ABNORMAL) Differential, Automated (02/07/2022 6:05 PM EDT) [facility] Method Time Signature Neutrophils % 67.7 % [facility] Neutr Abs (ANC) 12.21 (H) 1.70 - [facility] 6.10 [facility] x10(3)/[facility] LABORATORY Lymphocytes % 7.1 % [facility] Lymphocytes Abs 1.3 0.9 - 3.2 [facility] x10(3)/[facility] LABORATORY Monocytes % 14.1 % [facility] Monocyte Abs 2.6 (H) 0.3 - 0.9 [facility] x10(3)/[facility] LABORATORY Eosinophils % 0.8 % [facility] Eosinophils Abs 0.1 0.0 - 0.4 [facility] x10(3)/[facility] LABORATORY Basophils % 0.4 % [facility] Basophils Abs 0.1 0.0 - 0.1 [facility] x10(3)/[facility] LABORATORY Immature Gran % 9.90 % [facility] Comment: Immature granulocytes(IG's)percentage an d absolute count will include metamyelocytes, myelocytes, and promyelo cytes. Blood smears from CBCs yielding IG's will be scanned manually for ny crain. If this scan disagrees with the automated IG or if promyelocytes are not ed, a manual differential will be performed. Gemini Gran Abs 1.79 (H) 0.00 - 0.04 x10(3)/[facility] LABORATORY Specimen Anatomical Collection Method Collection Time Receive d Time (Source) Location / / Volume Laterality Blood 02/07/2022 6:05 PM 2 6:10 EDT PM EDT Resulting Agency Comment Spec In Lab Rogers Solano APRN HEMATOLOGY ORDERABLES Performing Organization Address City/State/ZIP Code Phon e Number [place] [phone] HOSPITAL LAB[address]ORY [address] (ABNORMAL) Hemogram (02/07/2022 6:05 PM EDT) [facility] gist Method Time Signature WBC 18.0 (H) 4.0 - 9.5 [facility] x[facility](3[facility] LABORATORY RBC 2.31 (L) 4.58 - [facility] 5.54 [facility] x10(6)/[facility] LABORATORY Hemoglobin 6.8 (L) 13.7 - [facility] 16.5 g/dL [facility] Hematocrit 19.3 (L) 40.5 - [facility] 48.5 % [facility] MCV 83.5 82.9 - [facility] 93.1 [facility] LABORATORY MCH 29.4 27.5 - [facility] 32.1 pg [facility] MCHC 35.2 32.0 - [facility] 35.7 g/dL [facility] Platelets 85 (L) 145 - 357 [facility] x10(3)/[facility] LABORATORY RDWSD 42.5 36.0 - [facility] 45.0 [facility] LABORATORY RDWCV 14.7 (H) 11.4 - [facility] 13.8 % [facility] MPV 9.9 7.6 - 12.9 [facility] LABORATORY nRBC % Auto 0.8 % [facility] nRBC Abs Auto 0.150 (H) 0.000 - [facility] 0.000 [facility] x10(3)/[facility] LABORATORY Specimen Anatomical Collection Method Collection Time Receive d Time (Source) Location / / Volume Laterality Blood 02/07/2022 6:05 PM 2 6:10 EDT PM EDT Resulting Agency Comment Spec In Lab Rogers Solano APRN HEMATOLOGY ORDERABLES Performing Organization Address City/[facility]/[place]IP [place] [address] (ABNORMAL) Sodium (02/07/2022 6:05 PM EDT) P athologist Signature Sodium 125 (L) 135 - 145 [facility] mmol/L [facility] Specimen Anatomical Collection Method Collection Time Receive d Time (Source) Location / / Volume Laterality Blood 02/07/2022 6:05 PM 2 6:10 EDT PM EDT Resulting Agency Comment Spec In Lab Parrish Betancourt MD CHEMISTRY ORDERABLES Performing Organization Address City/[facility]/[place] [address] (ABNORMAL) Calcium Ionized Whole Blood, HONORIO (02/07/2022 4:30 PM EDT) Analysis Performed At Patho logist Time Signature pH Honorio 7.43 (H) 7.32 - [facility] 7.42 [facility] ICa Whole 1.15 1.15 - [facility] Blood 1.33 [facility] mmol/[facility] Comment: Note: ??Total bilirubin higher than 20 m g/dL may lead to falsely low ionized calcium. Specimen Anatomical Collection Method Collection Time Receive d Time (Source) Location / / Volume Laterality Blood ARTERIAL LINE / 02/07/2022 4:30 PM 2021 4:38 Unknown EDT PM EDT Resulting Agency Comment Spec In Lab Parrish Betancourt MD CHEMISTRY ORDERABLES Performing Organization Address City/[facility]/ZIP Code Phon e Number [address] Transfuse RBC (02/07/2022 4:20 PM EDT) Rogers Solano APRN NURSING TREATMENT ORDERABLES - BLOOD ADMIN Transfuse RBC (02/07/2022 4:20 PM EDT) Rogers Solano KATERYNA NURSING TREATMENT ORDERABLES - BLOOD ADMIN Prepare RBC (02/07/2022 1:30 PM EDT) P athologist Signature Dispensed? Yes [facility] Specimen Anatomical Collection Method Collection Time Receive d Time (Source) Location / / Volume Laterality Blood 02/07/2022 1:30 PM 1:29 EDT PM EDT Rogers Solano KATERYNA BLOOD BANK ORDERABLES Performing Organization Address City/State/ZIP [place] [address] XR Chest One View (02/07/2022 1:15 PM EDT) Anatomical Region Laterality Modality Chest N/A Digital [...] who have questions please contact the health nursing care attendant that requested your imaging first. ? Narrative [...] ho have questions please contact the health nursing care attendant that requested your imaging first. Electronically signed by: Boubacar kim MD, [facility] ([phone]), at 02/07/2022 1:37 PM Jayme Armstrong MD IMG DX ORDERABLES (ABNORMAL) BLOOD GAS 2 ARTERIAL (02/07/2022 1:04 PM EDT) Analysis Performed At Patho logist Time Signature pH Art 7.51 (H) 7.35 - [facility] 7.45 [facility] pCO2 Art 28 (L) 35 - 45 [facility] LABORATORY pO2 Art 78 (L) 85 - 104 [facility] LABORATORY HCO3 Art 22.0 20.0 - [facility] 26.0 [facility] mmol/L [facility] BE Art -1.0 -3.0 - 3.0 [facility] mmol/L [facility] Hgb Blood Gas 7.4 (L) 13.7 - [facility] 16.5 g/dL [facility] O2HB Art 93.3 (L) 94.0 - [facility] 97.0 % [facility] COHB Art 0.3 % [facility] Comment: Nonsmokers: 0.5-1.5% COHB Smokers: Variable, but usually less than 10% Toxic: 20-30% COHB Lethal: Greater than 60% COHB METHB Art 1.2 <=1.5 % [facility] Na Whole Blood 118 (Critical) 135 - 145 mmol/L [facility] Comment: Noted by instrumental teacher. K Whole Blood 5.8 (H) 3.5 - 5.0 mmol/L [facility] Comment: Please note: Patients with WBC >100,000 may have falsely elevated Potassium levels. Contact the Clinical Chemistry L aboratory if there are any questions. ICa Whole Blood 1.08 (L) 1.15 - 1.33 mmol/L [facility] Comment: Note: ??Total bilirubin higher than 20 m g/dL may lead to falsely low ionized calcium. CL Whole Blood 94 (L) 98 - 107 mmol/L [facility] Gluc Whole Bld 104 65 - 199 mg/dL [facility] Comment: Diabetes: >=200 mg/dL plus symp toms. Lactate WB 1.2 0.5 - 2.2 mmol/L [facility] FIO2 Art 21 % [facility] PF Ratio Art 371 [facility] Specimen Anatomical Collection Method Collection Time Receive d Time (Source) Location / / Volume Laterality Blood 02/07/2022 1:04 PM 2 1:04 EDT PM EDT Jayme Armstrong MD CHEMISTRY ORDERABLES Performing Organization Address City/State/Z[place] [address] (ABNORMAL) Phosphorus (02/07/2022 1:00 PM EDT) athologist Signature Phosphorus 5.0 (H) 2.5 - 4.5 [facility] mg/dL [facility] Specimen Anatomical Collection Method Collection Time Receive d Time (Source) Location / / Volume Laterality Blood Venous Draw / 02/07/2022 1:00 PM 02/08/20 22 1:15 Unknown EDT PM EDT Resulting Agency Comment Spec In Lab Angelina Reynoso MD CHEMISTRY ORDERABLES Performing Organization Address City/[facility]/ZIP Code Phon e Number [address] Magnesium (02/07/2022 1:00 PM EDT) athologist Signature Magnesium 0.87 0.69 - 1.07 [facility] mmol/L [facility] Specimen Anatomical Collection Method Collection Time Receive d Time (Source) Location / / Volume Laterality Blood Venous Draw / 02/07/2022 1:00 PM 02/08/20 22 1:15 Unknown EDT PM EDT Resulting Agency Comment Spec In Lab Angelina Reynoso MD CHEMISTRY ORDERABLES Performing Organization Address City/[facility]/ZIP Code Phon e Number [address] (ABNORMAL) Differential, Automated (02/07/2022 1:00 PM EDT) [facility] gist Method Time Signature Neutrophils % 67.1 % [facility] Neutr Abs (ANC) 13.59 (H) 1.70 - [facility] 6.10 [facility] x10(3)/[facility] LABORATORY Lymphocytes % 6.8 % [facility] Lymphocytes Abs 1.4 0.9 - 3.2 [facility] x10(3)/[facility] LABORATORY Monocytes % 13.2 % [facility] Monocyte Abs 2.7 (H) 0.3 - 0.9 [facility] x10(3)/[facility] LABORATORY Eosinophils % 0.5 % [facility] Eosinophils Abs 0.1 0.0 - 0.4 [facility] x10(3)/[facility] LABORATORY Basophils % 0.5 % [facility] Basophils Abs 0.1 0.0 - 0.1 [facility] x10(3)/[facility] LABORATORY Immature Gran % 11.90 % [facility] Comment: Immature granulocytes(IG's)percentage an d absolute count will include metamyelocytes, myelocytes, and promyelo cytes. Blood smears from CBCs yielding IG's will be scanned manually for ny crain. If this scan disagrees with the automated IG or if promyelocytes are not ed, a manual differential will be performed. Gemini Gran Abs 2.40 (H) 0.00 - 0.04 x10(3)/[facility] LABORATORY Specimen Anatomical Collection Method Collection Time Receive d Time (Source) Location / / Volume Laterality Blood 02/07/2022 1:00 PM 1:09 EDT PM EDT Resulting Agency Comment Spec In Lab Batsheva Hill MD HEMATOLOGY ORDERABLES Performing Organization Address City/State/ZIP Code Phon e Number [place] [phone] HOSPITAL LAB[address]ATORY Drive (ABNORMAL) Hemogram (02/07/2022 1:00 PM EDT) [facility] gist Method Time Signature WBC 20.2 (H) 4.0 - 9.5 [facility] x10(3)/[facility] LABORATORY RBC 2.25 (L) 4.58 - [facility] x10(6)/[facility] LABORATORY Hemoglobin 6.6 (L) 13.7 - [facility] 16.5 g/dL [facility] Hematocrit 18.6 (L) 40.5 - [facility] 48.5 % [facility] MCV 82.7 (L) 82.9 - [facility] 93.1 [facility] LABORATORY MCH 29.3 27.5 - [facility] 32.1 pg [facility] MCHC 35.5 32.0 - [facility] 35.7 g/dL [facility] Platelets 112 (L) 145 - 357 [facility] x10(3)/[facility] LABORATORY RDWSD 42.7 36.0 - [facility] 45.0 [facility] LABORATORY RDWCV 14.9 (H) 11.4 - [facility] 13.8 % [facility] MPV 9.8 7.6 - 12.9 [facility] LABORATORY nRBC % Auto 0.9 % [facility] nRBC Abs Auto 0.190 (H) 0.000 - [facility] 0.000 [facility] x10(3)/[facility] LABORATORY Specimen Anatomical Collection Method Collection Time Receive d Time (Source) Location / / Volume Laterality Blood 02/07/2022 1:00 PM 2 1:09 EDT PM EDT Resulting Agency Comment Spec In Lab Batsheva Hill MD HEMATOLOGY ORDERABLES Performing Organization Address City/State/Z[place] [address] (ABNORMAL) Basic Metabolic Panel (non-fasting) (02/07/2022 1:00 PM EDT) P athologist Signature Glucose Lvl 105 65 - 199 [facility] mg/dL [facility] Comment: Diabetes: >=200 mg/dL plus symp toms BUN 41 (H) 10 - 20 mg/dL [facility] Creatinine 3.92 (H) 0.80 - 1.50 mg/dL [facility] Sodium 123 (L) 135 - 145 mmol/L [facility] Potassium 6.0 (H) 3.5 - 5.0 mmol/L [facility] Comment: Please note: ??Patients with WBC >100,00 0 may have falsely elevated Potassium levels. ??For accurate Potassium quantif ication in these patients send serum separator tube (gold top) for subsequent determinations. ??Contact the Clinical Chemistry Laboratory if there are any qu estions. Chloride 94 (L) 98 - 107 mmol/L [facility] CO2 21 (L) 22 - 31 mmol/L [facility] Anion Gap 8 5 - 15 mmol/L [facility] Calcium 7.4 (L) 8.5 - 10.5 mg/dL [facility] Estimated GFR 20 (L) >=60 mL/min/1.73 m?? [facility] Comment: This patient's estimated GFR [...] Location / / Volume Laterality Blood 02/07/2022 1:00 PM 2 1:09 EDT PM EDT Resulting Agency Comment Spec In Lab Rogers Solano APRN CHEMISTRY ORDERABLES Performing Organization Address City/State/Z[place] [address] CENTRAL LINE (02/07/2022 12:52 PM EDT) Narrative [...] at time of insertion: I CU 4 [facility] Rogers Solano APRN Rogers Solano APRN PROCEDURE/MINOR SURGICAL ORD ERABLES POCT Glucose (02/07/2022 8:22 AM EDT) athologist Signature POC Glucose 130 65 - 199 [facility] mg/dL [facility] Comment: Supplemental ranges: <140 mg/dL before meals <180 mg/dL all other times of the day Specimen Anatomical Collection Method Collection Time Receive d Time (Source) Location / / Volume Laterality Blood 02/07/2022 8:22 AM 8:22 EDT AM EDT Jayme Armstrong MD POINT OF CARE TEST ORDERABLE S Performing Organization Address City/State/Z[place] [address] (ABNORMAL) BLOOD GAS 2 ARTERIAL (02/07/2022 8:16 AM EDT) Analysis Performed At Patho logist Time Signature pH Art 7.50 (H) 7.35 - [facility] 7.45 [facility] pCO2 Art 29 (L) 35 - 45 [facility] mmHg [facility] pO2 Art 76 (L) 85 - 104 [facility] LABORATORY HCO3 Art 21.8 20.0 - [facility] 26.0 [facility] mmol/L [facility] BE Art -1.4 -3.0 - 3.0 [facility] mmol/L [facility] Hgb Blood Gas 8.0 (L) 13.7 - [facility] 16.5 g/dL [facility] O2HB Art 92.9 (L) 94.0 - [facility] 97.0 % [facility] COHB Art 0.3 % [facility] Comment: Nonsmokers: 0.5-1.5% COHB Smokers: Variable, but usually less than 10% Toxic: 20-30% COHB Lethal: Greater than 60% COHB METHB Art 1.4 <=1.5 % [facility] Na Whole Blood 117 (Critical) 135 - 145 mmol/L [facility] Comment: Noted by instrumental teacher. K Whole Blood 5.7 (H) 3.5 - 5.0 mmol/L [facility] Comment: Please note: Patients with WBC >100,000 may have falsely elevated Potassium levels. Contact the Clinical Chemistry L aboratory if there are any questions. ICa Whole Blood 1.11 (L) 1.15 - 1.33 mmol/L [facility] Comment: Note: ??Total bilirubin higher than 20 m g/dL may lead to falsely low ionized calcium. CL Whole Blood 94 (L) 98 - 107 mmol/L [facility] Gluc Whole Bld 116 65 - 199 mg/dL [facility] Comment: Diabetes: >=200 mg/dL plus symp toms. Lactate WB 1.3 0.5 - 2.2 mmol/L [facility] FIO2 Art 21 % [facility] PF Ratio Art 362 [facility] Specimen Anatomical Collection Method Collection Time Receive d Time (Source) Location / / Volume Laterality Blood 02/07/2022 8:16 AM 8:16 EDT AM EDT Jayme Armstrong MD CHEMISTRY ORDERABLES Performing Organization Address City/State/Z[place] [address] Scan, Peripheral Blood (02/07/2022 6:05 AM EDT) [facility] gist Method Time Signature Plat Estimate Decreased [facility] RBC Morphology Abnormal [facility] Microcytes 1-5 /HPF [facility] Polychromasia Present >5/HPF [facility] Ovalocytes 1-5 /HPF [facility] Angel Cells 1-5 /HPF [facility] Specimen Anatomical Collection Method Collection Time Receive d Time (Source) Location / / Volume Laterality Blood 02/07/2022 6:05 AM 6:11 EDT AM EDT Resulting Agency Comment Spec In Lab Collette ELLIS HEMATOLOGY ORDERABLES Performing Organization Address City/State/Z[place] [address] (ABNORMAL) Differential, Automated (02/07/2022 6:05 AM EDT) [facility] Method Time Signature Neutrophils % 64.3 % [facility] Neutr Abs (ANC) 15.67 (H) 1.70 - [facility] 6.10 [facility] x10(3)/[facility] LABORATORY Lymphocytes % 6.4 % [facility] Lymphocytes Abs 1.6 0.9 - 3.2 [facility] x10(3)/[facility] LABORATORY Monocytes % 13.7 % [facility] Monocyte Abs 3.3 (H) 0.3 - 0.9 [facility] x10(3)/[facility] LABORATORY Eosinophils % 0.5 % [facility] Eosinophils Abs 0.1 0.0 - 0.4 [facility] x10(3)/[facility] LABORATORY Basophils % 0.5 % [facility] Basophils Abs 0.1 0.0 - 0.1 [facility] x10(3)[facility] LABORATORY Immature Gran % 14.60 % [facility] Comment: Immature granulocytes(IG's)percentage an d absolute count will include metamyelocytes, myelocytes, and promyelo cytes. Blood smears from CBCs yielding IG's will be scanned manually for concor dance. If this scan disagrees with the automated IG or if promyelocytes are not ed, a manual differential will be performed. Gemini Gran Abs 3.54 (H) 0.00 - 0.04 x10(3)/[facility] LABORATORY Specimen Anatomical Collection Method Collection Time Receive d Time (Source) Location / / Volume Laterality Blood 02/07/2022 6:05 AM 2 6:11 EDT AM EDT Resulting Agency Comment Spec In Lab Collette ELLIS HEMATOLOGY ORDERABLES Performing Organization Address City/State/Z[place] [address] (ABNORMAL) Hemogram (02/07/2022 6:05 AM EDT) [facility] gist Method Time Signature WBC 24.3 (H) 4.0 - 9.5 [facility] x10(3)/[facility] LABORATORY RBC 2.41 (L) 4.58 - [facility] x10(6)/[facility] LABORATORY Hemoglobin 7.1 (L) 13.7 - [facility] 16.5 g/dL [facility] Hematocrit 19.7 (L) 40.5 - [facility] 48.5 % [facility] MCV 81.7 (L) 82.9 - [facility] 93.1 [facility] LABORATORY MCH 29.5 27.5 - [facility] 32.1 pg [facility] MCHC 36.0 (H) 32.0 - [facility] 35.7 g/dL [facility] Platelets 89 (L) 145 - 357 [facility] x10(3)/[facility] LABORATORY RDWSD 42.7 36.0 - [facility] 45.0 [facility] LABORATORY RDWCV 15.1 (H) 11.4 - [facility] 13.8 % [facility] MPV 9.8 7.6 - 12.9 [facility] LABORATORY nRBC % Auto 1.5 % [facility] nRBC Abs Auto 0.370 (H) 0.000 - [facility] 0.000 [facility] x10(3)/[facility] LABORATORY Specimen Anatomical Collection Method Collection Time Receive d Time (Source) Location / / Volume Laterality Blood 02/07/2022 6:05 AM 2 6:11 EDT AM EDT Resulting Agency Comment Spec In Lab Collette ELLIS HEMATOLOGY ORDERABLES Performing Organization Address City/[facility]/[place] [address] (ABNORMAL) Sodium (02/07/2022 6:05 AM EDT) P athologist Signature Sodium 126 (L) 135 - 145 [facility] mmol/L [facility] Specimen Anatomical Collection Method Collection Time Receive d Time (Source) Location / / Volume Laterality Blood 02/07/2022 6:05 AM 2 6:11 EDT AM EDT Resulting Agency Comment Spec In Lab Parrish Betancourt MD CHEMISTRY ORDERABLES Performing Organization Address City/[facility]/[place] [address] Transfuse RBC (02/07/2022 5:36 AM EDT) Jayme Armstrong MD NURSING TREATMENT ORDERABLES - BLOOD ADMIN Transfuse RBC (02/07/2022 5:36 AM EDT) Jayme Armstrong MD NURSING TREATMENT ORDERABLES - BLOOD ADMIN Prepare RBC (02/07/2022 4:55 AM EDT) P athologist Signature Dispensed? Yes [facility] Specimen Anatomical Collection Method Collection Time Receive d Time (Source) Location / / Volume Laterality Blood 02/07/2022 4:55 AM 2 4:51 EDT AM EDT Jayme Armstrong MD BLOOD BANK ORDERABLES Performing Organization Address City/[facility]/[place] [address] (ABNORMAL) Calcium Ionized Whole Blood, HONORIO (02/07/2022 3:00 AM EDT) Analysis Performed At Patho logist Time Signature pH Honorio 7.45 (H) 7.32 - [facility] 7.42 [facility] ICa Whole 1.14 (L) 1.15 - [facility] Blood 1.33 [facility] mmol/L [facility] Comment: Note: ??Total bilirubin higher than 20 m g/dL may lead to falsely low ionized calcium. Specimen Anatomical Collection Method Collection Time Receive d Time (Source) Location / / Volume Laterality Blood ARTERIAL LINE / 02/07/2022 3:00 AM 2021 3:11 Unknown EDT AM EDT Resulting Agency Comment Spec In Lab Angelina Reynoso MD CHEMISTRY ORDERABLES Performing Organization Address City/[facility]/[place] [address] Fibrinogen (02/07/2022 2:10 AM EDT) athologist Signature Fibrinogen 362 200 - 393 [facility] mg/dL [facility] Comment: A fibrinogen level >100 mg/dL is adequat e for hemostasis in most patients without underlying bleeding disorders. Specimen Anatomical Collection Method Collection Time Receive d Time (Source) Location / / Volume Laterality Blood 02/07/2022 2:10 AM 2 2:19 EDT AM EDT Resulting Agency Comment Spec In Lab Collette ELLIS HEMATOLOGY ORDERABLES Performing Organization Address [facility] [place] [address] Prothrombin Time (02/07/2022 2:10 AM EDT) athologist Signature PT 11.3 9.4 - 12.5 [facility] LABORATORY INR 1.0 [facility] Comment: An INR <2.0 indicates [...] Collette ELLIS HEMATOLOGY ORDERABLES Performing Organization Address City/[facility]/Z[place] [address] (ABNORMAL) Platelet count (02/07/2022 2:10 AM EDT) athologist Signature Platelets 128 (L) 145 - 357 [facility] x10(3)/[facility] LABORATORY Plat Immature 7.0 0.0 - 7.4 [facility] % [facility] Comment: Limitation of the Immature Platelet Frac tion (IPF)-May be less reliable when the platelet count is less than 47p523/u L due to statistical imprecision. The IPF [...] in a decreased state of production. References: [employer] The Clinical Value of the Immature Platelet Fraction (IPF) in Cell Recovery Document Number [id number] 12/2010 [employer] The Role of the Imm ature Platelet Fraction (IPF) in the Differential Diagnosis of Thrombocytopen ia, Document [id number] V05 P012/12 Specimen Anatomical Collection Method Collection Time Receive d Time (Source) Location / / Volume Laterality Blood 02/07/2022 2:10 AM 2 2:19 EDT AM EDT Resulting Agency Comment Spec In Lab Collette ELLIS HEMATOLOGY ORDERABLES Performing Organization Address City/State/ZIP Code Phon e Number [place] [phone] [facility] [address] Drive (ABNORMAL) Hematocrit (02/07/2022 2:10 AM EDT) athologist Signature Hematocrit 19.8 (L) 40.5 - [facility] [address].5 [facility] Specimen Anatomical Collection Method Collection Time Receive d Time (Source) Location / / Volume Laterality Blood 02/07/2022 2:10 AM 2 2:19 EDT AM EDT Resulting Agency Comment Spec In Lab Collette Liana Rob ELLIS HEMATOLOGY ORDERABLES Performing Organization Address City/State/ZIP Code Phon e Number [address] (ABNORMAL) Hemoglobin (02/07/2022 2:10 AM EDT) P athologist Signature Hemoglobin 7.2 (L) 13.7 - 16.5 [facility] g/dL [facility] Specimen Anatomical Collection Method Collection Time Receive d Time (Source) Location / / Volume Laterality Blood 02/07/2022 2:10 AM 2 2:19 EDT AM EDT Resulting Agency Comment Spec In Lab Collette ELLIS HEMATOLOGY ORDERABLES Performing Organization Address City/State/ZIP Code Phon e Number [address] (ABNORMAL) BLOOD GAS 2 ARTERIAL (02/07/2022 12:52 AM EDT) Analysis Performed At Patho logist Time Signature pH Art 7.44 7.35 - [facility] 7.45 [facility] pCO2 Art 34 (L) 35 - 45 [facility] mmHg [facility] pO2 Art 81 (L) 85 - 104 [facility] LABORATORY HCO3 Art 22.4 20.0 - [facility] 26.0 [facility] mmol/L [facility] BE Art -1.7 -3.0 - 3.0 [facility] mmol/L [facility] Hgb Blood Gas 8.5 (L) 13.7 - [facility] 16.5 g/dL [facility] O2HB Art 93.4 (L) 94.0 - [facility] 97.0 % [facility] COHB Art 0.3 % [facility] Comment: Nonsmokers: 0.5-1.5% COHB Smokers: Variable, but usually less than 10% Toxic: 20-30% COHB Lethal: Greater than 60% COHB METHB Art 1.0 <=1.5 % [facility] Na Whole Blood 118 (Critical) 135 - 145 mmol/L [facility] Comment: Noted by instrumental teacher. K Whole Blood 5.6 (H) 3.5 - 5.0 mmol/L [facility] Comment: Please note: Patients with WBC >100,000 may have falsely elevated Potassium levels. Contact the Clinical Chemistry L aboratory if there are any questions. ICa Whole Blood 1.11 (L) 1.15 - 1.33 mmol/L [facility] Comment: Note: ??Total bilirubin higher than 20 m g/dL may lead to falsely low ionized calcium. CL Whole Blood 94 (L) 98 - 107 mmol/L [facility] Gluc Whole Bld 136 65 - 199 mg/dL [facility] Comment: Diabetes: >=200 mg/dL plus symp toms. Lactate WB 1.4 0.5 - 2.2 mmol/L [facility] FIO2 Art 21 % [facility] PF Ratio Art 386 [facility] Specimen Anatomical Collection Method Collection Time Receive d Time (Source) Location / / Volume Laterality Blood 02/07/2022 12:52 02/07/2022 AM EDT 12:52 AM EDT Jayme Armstrong MD CHEMISTRY ORDERABLES Performing Organization Address City/State/ZIP [place] [address] (ABNORMAL) Basic Metabolic Panel (non-fasting) (02/07/2022 12:47 AM EDT) P athologist Signature Glucose Lvl 136 65 - 199 [facility] mg/dL [facility] Comment: Diabetes: >=200 mg/dL plus symp toms BUN 38 (H) 10 - 20 mg/dL [facility] Creatinine 3.43 (H) 0.80 - 1.50 mg/dL [facility] Comment: result rechecked-sf Sodium 125 (L) 135 - 145 mmol/L [facility] Potassium 5.8 (H) 3.5 - 5.0 mmol/L [facility] Comment: Please note: ??Patients with WBC >100,00 0 may have falsely elevated Potassium levels. ??For accurate Potassium quantif ication in these patients send serum separator tube (gold top) for subsequent determinations. ??Contact the Clinical Chemistry Laboratory if there are any qu estions. Chloride 94 (L) 98 - 107 mmol/L [facility] CO2 22 22 - 31 mmol/L [facility] Anion Gap 9 5 - 15 mmol/L [facility] Calcium 7.6 (L) 8.5 - 10.5 mg/dL [facility] Comment: result rechecked-sf Estimated GFR 24 (L) >=60 mL/min/1.73 m?? [facility] Comment: This patient's estimated GFR [...] Location / / Volume Laterality Blood 02/07/2022 12:47 02/07/2022 1:02 AM EDT AM EDT Resulting Agency Comment Spec In Lab Jayme Armstrong MD CHEMISTRY ORDERABLES Performing Organization Address City/State/ZIP [place] [address] (ABNORMAL) Phosphorus (02/07/2022 12:47 AM EDT) P athologist Signature Phosphorus 5.0 (H) 2.5 - 4.5 [facility] mg/dL [facility] Specimen Anatomical Collection Method Collection Time Receive d Time (Source) Location / / Volume Laterality Blood 02/07/2022 12:47 02/07/2022 1:02 AM EDT AM EDT Resulting Agency Comment Spec In Lab Gela Novka MD CHEMISTRY ORDERABLES Performing Organization Address City/[facility]/ZIP Code Phon e Number [address] Magnesium (02/07/2022 12:47 AM EDT) P athologist Signature Magnesium 0.84 0.69 - 1.07 [facility] mmol/L [facility] Specimen Anatomical Collection Method Collection Time Receive d Time (Source) Location / / Volume Laterality Blood 02/07/2022 12:47 02/07/2022 1:02 AM EDT AM EDT Resulting Agency Comment Spec In Lab Gela Novak MD CHEMISTRY ORDERABLES Performing Organization Address City/[facility] [place] [address] Fibrinogen (02/06/2022 11:11 PM EDT) P athologist Signature Fibrinogen 362 200 - 393 [facility] mg/dL [facility] Comment: A fibrinogen level >100 mg/dL is adequat e for hemostasis in most patients without underlying bleeding disorders. Specimen Anatomical Collection Method Collection Time Receive d Time (Source) Location / / Volume Laterality Blood 02/06/2022 11:11 02/06/2022 PM EDT 11:15 PM EDT Resulting Agency Comment Spec In Lab Jeanette Escamilla APRN HEMATOLOGY ORDERABLES Performing Organization Address City/[facility]/ZIP [facility] [place] [address] Prothrombin Time (02/06/2022 11:11 PM EDT) P athologist Signature PT 11.0 9.4 - 12.5 [facility] LABORATORY INR 1.0 [facility] Comment: An INR <2.0 indicates [...] Location / / Volume Laterality Blood 02/06/2022 11:11 02/06/2022 PM EDT 11:15 PM EDT Resulting Agency Comment Spec In Lab Jeanette Escamilla APRN HEMATOLOGY ORDERABLES Performing Organization Address City/State/ZIP [place] [address] (ABNORMAL) Platelet count (02/06/2022 11:11 PM EDT) P athologist Signature Platelets 125 (L) 145 - 357 [facility] x10(3)/[facility] LABORATORY Plat Immature 5.3 0.0 - 7.4 [facility] % % [facility] Comment: Limitation of the Immature Platelet Frac tion (IPF)-May be less reliable when the platelet count is less than 85o547/u L due to statistical imprecision. The IPF [...] in a decreased state of production. References: [employer] The Clinical Value of the Immature Platelet Fraction (IPF) in Cell Recovery Document Number [id number] 12/2010 [employer] The Role of the Imm ature Platelet Fraction (IPF) in the Differential Diagnosis of Thrombocytopen ia, Document [id number] V012/10/13 P012/12 Specimen Anatomical Collection Method Collection Time Receive d Time (Source) Location / / Volume Laterality Blood 02/06/2022 11:11 02/06/2022 PM EDT 11:15 PM EDT Resulting Agency Comment Spec In Lab Jeanette E Escamilla LEVELER HELPER HEMATOLOGY ORDERABLES Performing Organization Address City/State/[place] [address] (ABNORMAL) Hematocrit (02/06/2022 11:11 PM EDT) athologist Signature Hematocrit 20.8 (L) 40.5 [facility] 48.5 % [facility] Specimen Anatomical Collection Method Collection Time Receive d Time (Source) Location / / Volume Laterality Blood 02/06/2022 11:11 02/06/2022 PM EDT 11:15 PM EDT Resulting Agency Comment Spec In Lab Jeanette Escamilla LEVELER HELPER HEMATOLOGY ORDERABLES Performing Organization Address City/[facility]/[place] [address] (ABNORMAL) Hemoglobin (02/06/2022 11:11 PM EDT) athologist Signature Hemoglobin 7.7 (L) 13.7 - 16.5 [facility] g/dL [facility] Specimen Anatomical Collection Method Collection Time Receive d Time (Source) Location / / Volume Laterality Blood 02/06/2022 11:11 02/06/2022 PM EDT 11:15 PM EDT Resulting Agency Comment Spec In Lab Jeanette Escamilla APRN HEMATOLOGY ORDERABLES Performing Organization Address City/[facility]/[place] [address] (ABNORMAL) Sodium (02/06/2022 11:11 PM EDT) athologist Signature Sodium 124 (L) 135 - 145 [facility] mmol/L [facility] Specimen Anatomical Collection Method Collection Time Receive d Time (Source) Location / / Volume Laterality Blood 02/06/2022 11:11 02/06/2022 PM EDT 11:15 PM EDT Resulting Agency Comment Spec In Lab Parrish Betancourt MD CHEMISTRY ORDERABLES Performing Organization Address City/State/[place] [address] (ABNORMAL) Calcium Ionized Whole Blood, HONORIO (02/06/2022 10:51 PM EDT) Analysis Performed At Patho logist Time Signature pH Honorio 7.44 (H) 7.32 - [facility] 7.42 [facility] ICa Whole 1.07 (L) 1.15 - [facility] Blood 1.33 [facility] mmol/L [facility] Comment: Note: ??Total bilirubin higher than 20 m g/dL may lead to falsely low ionized calcium. Specimen Anatomical Collection Method Collection Time Receive d Time (Source) Location / / Volume Laterality Blood ARTERIAL LINE / 02/06/2022 10:51 02/07/20 22 Unknown PM EDT 11:06 PM EDT Resulting Agency Comment Spec In Lab Angelina Reynoso MD CHEMISTRY ORDERABLES Performing Organization Address City/[facility]/ZIP [facility] [place] [address] Fibrinogen (02/06/2022 10:20 PM EDT) P athologist Signature Fibrinogen 351 200 - 393 [facility] mg/dL [facility] Comment: A fibrinogen level >100 mg/dL is adequat e for hemostasis in most patients without underlying bleeding disorders. Specimen Anatomical Collection Method Collection Time Receive d Time (Source) Location / / Volume Laterality Blood 02/06/2022 10:20 02/06/2022 PM EDT 11:10 PM EDT Resulting Agency Comment Spec In Lab Jeanette Escamilla APRN HEMATOLOGY ORDERABLES Performing Organization Address City/[facility] [place] [address] Prothrombin Time (02/06/2022 10:20 PM EDT) P athologist Signature PT 11.1 9.4 - 12.5 [facility] LABORATORY INR 1.0 [facility] Comment: An INR <2.0 indicates [...] Location / / Volume Laterality Blood 02/06/2022 10:20 02/06/2022 PM EDT 11:10 PM EDT Resulting Agency Comment Spec In Lab Jeanette Escamilla KATERYNA HEMATOLOGY ORDERABLES Performing Organization Address City/State/[place] [address] (ABNORMAL) Platelet count (02/06/2022 10:20 PM EDT) P athologist Signature Platelets 126 (L) 145 - 357 [facility] x10(3)/[facility] LABORATORY Plat Immature 5.9 0.0 - 7.4 [facility] % % [facility] Comment: Limitation of the Immature Platelet Frac tion (IPF)-May be less reliable when the platelet count is less than 06a258/u L due to statistical imprecision. The IPF [...] in a decreased state of production. References: [employer] The Clinical Value of the Immature Platelet Fraction (IPF) in Cell Recovery Document Number [id number] 12/2010 [employer] The Role of the Imm ature Platelet Fraction (IPF) in the Differential Diagnosis of Thrombocytopen ia, Document [id number] V05 P0514 Specimen Anatomical Collection Method Collection Time Receive d Time (Source) Location / / Volume Laterality Blood 02/06/2022 10:20 02/06/2022 PM EDT 11:10 PM EDT Resulting Agency Comment Spec In Lab Jeanette Martinez Andi AVENDAÑO HEMATOLOGY ORDERABLES Performing Organization Address City/[facility]/[place] [address] (ABNORMAL) Hematocrit (02/06/2022 10:20 PM EDT) athologist Signature Hematocrit 20.5 (L) 40.5 - [facility] [place] 48.5 % [facility] Specimen Anatomical Collection Method Collection Time Receive d Time (Source) Location / / Volume Laterality Blood 02/06/2022 10:20 02/06/2022 PM EDT 11:10 PM EDT Resulting Agency Comment Spec In Lab Jeanette Escamilla APRN HEMATOLOGY ORDERABLES Performing Organization Address City/[facility]/ZIP Code Phon e Number [address] (ABNORMAL) Hemoglobin (02/06/2022 10:20 PM EDT) athologist Signature Hemoglobin 7.6 (L) 13.7 - 16.5 [facility] [place] g/dL [facility] Specimen Anatomical Collection Method Collection Time Receive d Time (Source) Location / / Volume Laterality Blood 02/06/2022 10:20 02/06/2022 PM EDT 11:10 PM EDT Resulting Agency Comment Spec In Lab Jeanette Escamilla APRN HEMATOLOGY ORDERABLES Performing Organization Address City/[facility]/[place] [address] Fibrinogen (02/06/2022 7:45 PM EDT) athologist Signature Fibrinogen 321 200 - 393 [facility] mg/dL [facility] Comment: A fibrinogen level >100 mg/dL is adequat e for hemostasis in most patients without underlying bleeding disorders. Specimen Anatomical Collection Method Collection Time Receive d Time (Source) Location / / Volume Laterality Blood 02/06/2022 7:45 PM 7:56 EDT PM EDT Resulting Agency Comment Spec In Lab Jeanette Escamilla APRN HEMATOLOGY ORDERABLES Performing Organization Address City/[facility]/[place] [address] Prothrombin Time (02/06/2022 7:45 PM EDT) athologist Signature PT 11.0 9.4 - 12.5 [facility] sec [facility] INR 1.0 [facility] Comment: An INR <2.0 indicates [...] Location / / Volume Laterality Blood 02/06/2022 7:45 PM 7:56 EDT PM EDT Resulting Agency Comment Spec In Lab Jeanette Escamilla APRN HEMATOLOGY ORDERABLES Performing Organization Address City/State/ZIP Code Phon e Number [place] [phone] [address] (ABNORMAL) Platelet count (02/06/2022 7:45 PM EDT) P athologist Signature Platelets 137 (L) 145 - 357 [facility] x10(3)/[facility] LABORATORY Plat Immature 4.8 0.0 - 7.4 [facility] % % [facility] Comment: Limitation of the Immature Platelet Frac tion (IPF)-May be less reliable when the platelet count is less than 75b938/u L due to statistical imprecision. The IPF [...] in a decreased state of production. References: [employer] The Clinical Value of the Immature Platelet Fraction (IPF) in Cell Recovery Document Number [id number] 12/2010 [employer] The Role of the Imm ature Platelet Fraction (IPF) in the Differential Diagnosis of Thrombocytopen ia, Document [id number] V05/07/14 P05 Specimen Anatomical Collection Method Collection Time Receive d Time (Source) Location / / Volume Laterality Blood 02/06/2022 7:45 PM 2 7:56 EDT PM EDT Resulting Agency Comment Spec In Lab Jeanette Escamlila LEVELER HELPER HEMATOLOGY ORDERABLES Performing Organization Address City/[facility]/ZIP Code Phon e Number [address] (ABNORMAL) Hematocrit (02/06/2022 7:45 PM EDT) P athologist Signature Hematocrit 22.1 (L) 40.5 [facility] 48.5 % [facility] Specimen Anatomical Collection Method Collection Time Receive d Time (Source) Location / / Volume Laterality Blood 02/06/2022 7:45 PM 2 7:56 EDT PM EDT Resulting Agency Comment Spec In Lab Jeanette Martinez Andi SPEARSN HEMATOLOGY ORDERABLES Performing Organization Address City/[facility]/[place] [address] (ABNORMAL) Hemoglobin (02/06/2022 7:45 PM EDT) P athologist Signature Hemoglobin 8.1 (L) 13.7 - 16.5 [facility] g/dL [facility] Specimen Anatomical Collection Method Collection Time Receive d Time (Source) Location / / Volume Laterality Blood 02/06/2022 7:45 PM 2 7:56 EDT PM EDT Resulting Agency Comment Spec In Lab Jeanette Escamilla LEVELER HELPER HEMATOLOGY ORDERABLES Performing Organization Address City/[facility]/ZIP [facility] [place] [address] (ABNORMAL) Electrolytes panel (02/06/2022 7:45 PM EDT) P athologist Signature Sodium 123 (L) 135 - 145 [facility] mmol/L [facility] Potassium 6.1 3.5 - 5.0 [facility] (Critical) mmol/L [facility] Comment: Called by: renuka, Read back by: dixie diego, Date/Time:02/06/22 20:32. Please note: ??Patients with WBC >100,00 0 may have falsely elevated Potassium levels. ??For accurate Potassium quantif ication in these patients send serum separator tube (gold top) for subsequent determinations. ??Contact the Clinical Chemistry Laboratory if there are any qu estions. Chloride 94 (L) 98 - 107 mmol/L [facility] CO2 21 (L) 22 - 31 mmol/L [facility] Anion Gap 8 5 - 15 mmol/L [facility] LABORATORY Specimen Anatomical Collection Method Collection Time Receive d Time (Source) Location / / Volume Laterality Blood 02/06/2022 7:45 PM 7:56 EDT PM EDT Resulting Agency Comment Spec In Lab Angelina Reynoso MD CHEMISTRY ORDERABLES Performing Organization Address City/State/ZIP Code Phon e Number [place] [phone] [address] (ABNORMAL) BLOOD GAS 2 ARTERIAL (02/06/2022 7:44 PM EDT) Analysis Performed At Patho logist Time Signature pH Art 7.44 7.35 - [facility] 7.45 [facility] pCO2 Art 31 (L) 35 - 45 [facility] mmHg [facility] pO2 Art 86 85 - 104 [facility] LABORATORY HCO3 Art 20.4 20.0 - [facility] 26.0 [facility] CAMPUS mmol/L [facility] BE Art -3.7 (L) -3.0 - 3.0 [facility] mmol/L [facility] Hgb Blood Gas 9.2 (L) 13.7 - [facility] 16.5 g/dL [facility] O2HB Art 94.1 94.0 - [facility] 97.0 % [facility] COHB Art 0.3 % [facility] Comment: Nonsmokers: 0.5-1.5% COHB Smokers: Variable, but usually less than 10% Toxic: 20-30% COHB Lethal: Greater than 60% COHB METHB Art 0.9 <=1.5 % [facility] Na Whole Blood 118 (Critical) 135 - 145 mmol/L [facility] Comment: Noted by instrumental teacher. K Whole Blood 5.8 (H) 3.5 - 5.0 mmol/L [facility] Comment: Please note: Patients with WBC >100,000 may have falsely elevated Potassium levels. Contact the Clinical Chemistry L aboratory if there are any questions. ICa Whole Blood 1.03 (L) 1.15 - 1.33 mmol/L [facility] Comment: Note: ??Total bilirubin higher than 20 m g/dL may lead to falsely low ionized calcium. CL Whole Blood 94 (L) 98 - 107 mmol/L [facility] Gluc Whole Bld 143 65 - 199 mg/dL [facility] Comment: Diabetes: >=200 mg/dL plus symp toms. Lactate WB 1.5 0.5 - 2.2 mmol/L [facility] FIO2 Art 21 % [facility] PF Ratio Art 410 [facility] Specimen Anatomical Collection Method Collection Time Receive d Time (Source) Location / / Volume Laterality Blood 02/06/2022 7:44 PM 7:44 EDT PM EDT Jayme Armstrong MD CHEMISTRY ORDERABLES Performing Organization Address City/State/ZIP [place] [address] (ABNORMAL) BLOOD GAS 2 ARTERIAL (02/06/2022 5:47 PM EDT) Analysis Performed At Patho logist Time Signature pH Art 7.42 7.35 - [facility] 7.45 [facility] pCO2 Art 30 (L) 35 - 45 [facility] mmHg [facility] pO2 Art 68 (L) 85 - 104 [facility] mmHg [facility] HCO3 Art 19.2 (L) 20.0 - [facility] 26.0 [facility] mmol/[facility] BE Art -5.2 (L) -3.0 - 3.0 [facility] mmol/L [facility] Hgb Blood Gas 9.3 (L) 13.7 - [facility] 16.5 g/dL [facility] O2HB Art 91.8 (L) 94.0 - [facility] 97.0 % [facility] COHB Art 0.3 % [facility] Comment: Nonsmokers: 0.5-1.5% COHB Smokers: Variable, but usually less than 10% Toxic: 20-30% COHB Lethal: Greater than 60% COHB METHB Art 0.9 <=1.5 % [facility] Na Whole Blood 117 (Critical) 135 - 145 mmol/L [facility] Comment: Noted by instrumental teacher. K Whole Blood 6.0 (H) 3.5 - 5.0 mmol/L [facility] Comment: Please note: Patients with WBC >100,000 may have falsely elevated Potassium levels. Contact the Clinical Chemistry L aboratory if there are any questions. ICa Whole Blood 0.98 (L) 1.15 - 1.33 mmol/L [facility] Comment: Note: ??Total bilirubin higher than 20 m g/dL may lead to falsely low ionized calcium. CL Whole Blood 93 (L) 98 - 107 mmol/L [facility] Gluc Whole Bld 131 65 - 199 mg/dL [facility] Comment: Diabetes: >=200 mg/dL plus symp toms. Lactate WB 1.8 0.5 - 2.2 mmol/L [facility] FIO2 Art 21 % [facility] PF Ratio Art 324 [facility] Specimen Anatomical Collection Method Collection Time Receive d Time (Source) Location / / Volume Laterality Blood 02/06/2022 5:47 PM 5:47 EDT PM EDT Jayme Armstrong MD CHEMISTRY ORDERABLES Performing Organization Address City/State/ZIP [place] [address] POCT Glucose (02/06/2022 5:44 PM EDT) athologist Signature POC Glucose 153 65 - 199 [facility] mg/dL [facility] Comment: Supplemental ranges: <140 mg/dL before meals <180 mg/dL all other times of the day Specimen Anatomical Collection Method Collection Time Receive d Time (Source) Location / / Volume Laterality Blood 02/06/2022 5:44 PM 2 5:44 EDT PM EDT Jayme Armstrong MD POINT OF CARE TEST ORDERABLE S Performing Organization Address [facility] Phon e Number [address] Fibrinogen (02/06/2022 4:33 PM EDT) P athologist Signature Fibrinogen 300 200 - 393 [facility] mg/dL [facility] Comment: OR Result called by ?? PARSAD OR Result s read back by: ? Divina Otero at 2022-02-06 16:54:39 A fibrinogen level >100 mg/dL is adequat e for hemostasis in most patients without underlying bleeding disorders. Specimen Anatomical Collection Method Collection Time Receive d Time (Source) Location / / Volume Laterality Blood 02/06/2022 4:33 PM 2 4:33 EDT PM EDT Resulting Agency Comment Spec In Lab Jayme Armstrong MD HEMATOLOGY ORDERABLES Performing Organization Address City/[facility] Code Phon e Number [address] APTT (02/06/2022 4:33 PM EDT) P athologist Signature PTT 25 25 - 37 sec [facility] Comment: OR Result called by ?? PARSAD OR Result s read back by: ? Divina Otero at 2022-02-06 16:54:39 The PTT is NOT appropriate for heparin m onitoring. Use the Anti-Xa level for heparin monitoring (HEP UFH) or LMWH mon itoring (HEP LMW). A PTT less than 37 seconds generally indicates adequate hem ostasis. Specimen Anatomical Collection Method Collection Time Receive d Time (Source) Location / / Volume Laterality Blood 02/06/2022 4:33 PM 2 4:33 EDT PM EDT Resulting Agency Comment Spec In Lab Jayme Armstrong MD HEMATOLOGY ORDERABLES Performing Organization Address City/[facility]/ZIP [place] [address] Prothrombin Time (02/06/2022 4:33 PM EDT) P athologist Signature PT 11.2 9.4 - 12.5 [facility] LABORATORY Comment: OR Result called by ?? PARSAD OR Result s read back by: ? Divina Otero at 2022-02-06 16:54:39 INR 1.0 [facility] Comment: OR Result called by ?? PARSAD OR Result s read back by: ? Divina Otero at 2022-02-06 16:54:39 An INR <2.0 indicates adequate procoagul ant [...] Location / / Volume Laterality Blood 02/06/2022 4:33 PM 4:33 EDT PM EDT Resulting Agency Comment Spec In Lab Jayme Armstrong MD HEMATOLOGY ORDERABLES Performing Organization Address City/[facility]/[place] [address] (ABNORMAL) Phosphorus (02/06/2022 4:20 PM EDT) P athologist Signature Phosphorus 7.4 (H) 2.5 - 4.5 [facility] mg/dL [facility] Specimen Anatomical Collection Method Collection Time Receive d Time (Source) Location / / Volume Laterality Blood Venous Draw / 02/06/2022 4:20 PM 02/07/20 22 6:05 Unknown EDT PM EDT Resulting Agency Comment Spec In Lab Jeanette Escamilla APRN CHEMISTRY ORDERABLES Performing Organization Address City/[facility]/[place]IP [place] [address] Magnesium (02/06/2022 4:20 PM EDT) P athologist Signature Magnesium 0.93 0.69 - 1.07 [facility] mmol/L [facility] Specimen Anatomical Collection Method Collection Time Receive d Time (Source) Location / / Volume Laterality Blood Venous Draw / 02/06/2022 4:20 PM 02/07/20 6:05 Unknown EDT PM EDT Resulting Agency Comment Spec In Lab Jeanette Escamilla APRN CHEMISTRY ORDERABLES Performing Organization Address City/State/ZIP Code Phon e Number [place] [phone] [facility] LABORATORY Drive (ABNORMAL) Differential, Automated (02/06/2022 4:20 PM EDT) Patholo gist Method Time Signature Neutrophils % 56.4 % [facility] Neutr Abs (ANC) 13.74 (H) 1.70 - [facility] 6.10 [facility] x10(3)/[facility] LABORATORY Lymphocytes % 9.1 % [facility] Lymphocytes Abs 2.2 0.9 - 3.2 [facility] x10(3)/[facility] LABORATORY Monocytes % 13.3 % [facility] Monocyte Abs 3.2 (H) 0.3 - 0.9 [facility] x10(3)/[facility] LABORATORY Eosinophils % 1.1 % [facility] Eosinophils Abs 0.3 0.0 - 0.4 [facility] x10(3)/[facility] LABORATORY Basophils % 1.1 % [facility] Basophils Abs 0.3 (H) 0.0 - 0.1 [facility] x10(3)/[facility] LABORATORY Immature Gran % 19.00 % [facility] Comment: Immature granulocytes(IG's)percentage an d absolute count will include metamyelocytes, myelocytes, and promyelo cytes. Blood smears from CBCs yielding IG's will be scanned manually for concor dance. If this scan disagrees with the automated IG or if promyelocytes are not ed, a manual differential will be performed. Gemini Gran Abs 4.64 (H) 0.00 - 0.04 x10(3)/[facility] LABORATORY Specimen Anatomical Collection Method Collection Time Receive d Time (Source) Location / / Volume Laterality Blood 02/06/2022 4:20 PM 4:33 EDT PM EDT Resulting Agency Comment Spec In Lab Jayme Armstrong MD HEMATOLOGY ORDERABLES Performing Organization Address City/State/ZIP [place] [address] (ABNORMAL) Hemogram (02/06/2022 4:20 PM EDT) athologist Signature WBC 24.4 (H) 4.0 - 9.5 [facility] x10(3)/[facility] LABORATORY RBC 2.87 (L) 4.58 - [facility] 5.54 [facility] x10(6)/[facility] LABORATORY Hemoglobin 8.5 (L) 13.7 - [facility] 16.5 g/dL [facility] Hematocrit 23.4 (L) 40.5 - [facility] 48.5 % [facility] Comment: This result has been called to DIVINA MORA by Tamara Hernandez on 02 06 2022 at 1653, and has been read back. MCV 81.5 (L) 82.9 - 93.1 [facility] LABORATORY MCH 29.6 27.5 - 32.1 pg [facility] MCHC 36.3 (H) 32.0 - 35.7 g/dL [facility] LABORATORY Platelets 110 (L) 145 - 357 x10(3)/[facility] LABORATORY RDWSD 39.9 36.0 - 45.0 [facility] LABORATORY RDWCV 13.9 (H) 11.4 - 13.8 % [facility] LABORATORY MPV 9.7 7.6 - 12.9 [facility] LABORATORY nRBC % Auto 2.0 % [facility] nRBC Abs Auto 0.500 (H) 0.000 - 0.000 x10(3)/[facility] LABORATORY Specimen Anatomical Collection Method Collection Time Receive d Time (Source) Location / / Volume Laterality Blood 02/06/2022 4:20 PM 4:33 EDT PM EDT Resulting Agency Comment Spec In Lab Jayme Armstrong MD HEMATOLOGY ORDERABLES Performing Organization Address City/State/ZIP [place] [address] (ABNORMAL) Basic Metabolic Panel (non-fasting) (02/06/2022 4:20 PM EDT) athologist Signature Glucose Lvl 117 65 - 199 [facility] mg/dL [facility] Comment: Diabetes: >=200 mg/dL plus symp toms BUN 47 (H) 10 - 20 mg/dL [facility] Creatinine 4.73 (H) 0.80 - 1.50 mg/dL [facility] Sodium 122 (L) 135 - 145 mmol/L [facility] Potassium 6.1 (Critical) 3.5 - 5.0 mmol/L [facility] Comment: Called by [facility]/Read back by Virgie gunter/02/06/2022 @ 9700 Please note: ??Patients with WBC >100,00 0 may have falsely elevated Potassium levels. ??For accurate Potassium quantif ication in these patients send serum separator tube (gold top) for subsequent determinations. ??Contact the Clinical Chemistry Laboratory if there are any qu estions. Chloride 92 (L) 98 - 107 mmol/L [facility] CO2 21 (L) 22 - 31 mmol/L [facility] Anion Gap 9 5 - 15 mmol/L [facility] Calcium 6.7 (Critical) 8.5 - 10.5 mg/dL [facility] Comment: Called by [facility]/Read back by Soila Castle/02/06/2022 @ 1719 Estimated GFR 16 (L) >=60 mL/min/1.73 m?? [facility] Comment: This patient's estimated GFR [...] Location / / Volume Laterality Blood 02/06/2022 4:20 PM 2 4:33 EDT PM EDT Resulting Agency Comment Spec In Lab Jayme Armstrong MD CHEMISTRY ORDERABLES Performing Organization Address City/State/ZIP Code Phon e Number [place] [phone] HOS[address]ITAL LAB[address]ORY [address] (ABNORMAL) BLOOD GAS 2 ARTERIAL (02/06/2022 3:54 PM EDT) Analysis Performed At Patho logist Time Signature pH Art 7.37 7.35 - [facility] 7.45 [facility] pCO2 Art 38 35 - 45 [facility] mmHg [facility] pO2 Art 325 (H) 85 - 104 [facility] LABORATORY HCO3 Art 21.8 20.0 - [facility] 26.0 [facility] mmol/L [facility] BE Art -3.4 (L) -3.0 - 3.0 [facility] mmol/L [facility] Hgb Blood Gas 8.8 (L) 13.7 - [facility] 16.5 g/dL [facility] O2HB Art 98.0 (H) 94.0 - [facility] 97.0 % [facility] COHB Art 1.1 % [facility] Comment: Nonsmokers: 0.5-1.5% COHB Smokers: Variable, but usually less than 10% Toxic: 20-30% COHB Lethal: Greater than 60% COHB METHB Art 0.3 <=1.5 % [facility] Na Whole Blood 117 (Critical) 135 - 145 mmol/L [facility] Comment: Critical notified to Amber Ray by ins trument lithograph press operator immediately following run time. K Whole Blood 5.7 (H) 3.5 - 5.0 mmol/L [facility] Comment: Please note: Patients with WBC >100,000 may have falsely elevated Potassium levels. Contact the Clinical Chemistry L aboratory if there are any questions. ICa Whole Blood 1.00 (L) 1.15 - 1.33 mmol/L [facility] Comment: Note: ??Total bilirubin higher than 20 m g/dL may lead to falsely low ionized calcium. CL Whole Blood 93 (L) 98 - 107 mmol/L [facility] Gluc Whole Bld 115 65 - 199 mg/dL [facility] Comment: Diabetes: >=200 mg/dL plus symp toms. Lactate WB 1.4 0.5 - 2.2 mmol/L [facility] Specimen Anatomical Collection Method Collection Time Receive d Time (Source) Location / / Volume Laterality Blood 02/06/2022 3:54 PM 2 3:54 EDT PM EDT Jayme Armstrong MD CHEMISTRY ORDERABLES Performing Organization Address City/State/Z[place] [address] IR Arteriogram Lower Extremity [...] 2. Flat for 2 hours, following Right CUT OFF SAWYER SHINGLE MILL Mynx closure deployment 3. Monitor for Right groin hematoma and bleeding. 4. IR will continue to follow, call for any questions or concerns. PROCEDURE SUMMARY: - Arterial access with ultrasound guidan ce - Internal iliac angiography: Unilateral - [...] General an esthesia Anesthesia/sedation administered by: [facility] Total intra-service sedation time (minut es): Please refer to anesthesia notes for further details. Access Local anesthesia was administered. The v essel was sonographically evaluated and judged to be patent. Real time ultrasoun d was used to visualize needle entry into the vessel and a permanent image wa s stored. A 5 Surinamese sheath was placed. Vessel accessed: Right common femoral ar timo Access technique: Micropuncture set with 21 gauge needle Left pelvic angiography The left pelvic arterial system was cath eterized using a 150 cm 0.035 3J guidewire, 5 Surinamese Berenstein catheter, 3 Surinamese renegade STC microcatheter and wire. Vessel catheterized: [...] interpretation and agree with the findings, Nicole arvizu MD at 02/08/2022 3:14 PM Thank you for letting us participate in the care of this patient. ??If you are a health care provider and have any questi ons regarding this report, please contact the number below. ??For patients who have questions please contact the health nursing care attendant that requested your imaging first. ? Electronically signed by: Nicole escobar MD, [facility] ([phone]), at 02/08/2022 3:14 PM Narrative 02/08/2022 3:14 PM EDT PROCEDURE: Pelvic [...] 2. Flat for 2 hours, following Right CUT OFF SAWYER SHINGLE MILL Mynx closure deployment 3. Monitor for Right groin hematoma and bleeding. 4. IR will continue to follow, call for any questions or concerns. PROCEDURE SUMMARY: - Arterial access with ultrasound guidan ce - Internal iliac angiography: Unilateral - [...] anesthesia/sedation: General an esthesia Anesthesia/sedation [facility] by: [facility] Total intra-service sedation time (minut es): Please refer to anesthesia notes for further details. Access Local anesthesia was administered. The v essel was sonographically evaluated and judged to be patent. Real time ultrasoun d was used to visualize needle entry into the vessel and a permanent image wa s stored. A 5 Surinamese sheath was placed. Vessel accessed: Right common femoral ar timo Access technique: Micropuncture set with 21 gauge needle Left pelvic angiography The left pelvic arterial system was cath eterized using a 150 cm 0.035 3J guidewire, 5 Surinamese Berenstein catheter, 3 Surinamese renegade STC microcatheter and wire. Vessel catheterized: [...] interpretation and agree with the findings, Nicole arvizu MD at 02/08/2022 3:14 PM Thank you for letting us participate in the care of this patient. If you are a health care provider and have any questi ons regarding this report, please contact the number below. For patients w ho have questions please contact the health nursing care attendant that requested your imaging first. Electronically signed by: Nicole escobar MD, [facility] ([phone]), at 02/08/2022 3:14 PM Jeanette Escamilla APRN IMG IR ORDERABLES POCT Glucose (02/06/2022 12:16 PM EDT) athologist Signature POC Glucose 167 65 - 199 [facility] Comment: Supplemental ranges: <140 mg/dL before meals <180 mg/dL all other times of the day Specimen Anatomical Collection Method Collection Time Receive d Time (Source) Location / / Volume Laterality Blood 02/06/2022 12:16 02/06/2022 PM EDT 12:16 PM EDT Jayme Armstrong MD POINT OF CARE TEST ORDERABLE S Performing Organization Address City/[facility]/[place] [address] Fibrinogen (02/06/2022 11:30 AM EDT) athologist [facility] Fibrinogen 279 200 - 393 [facility] mg/dL [facility] Comment: A fibrinogen level >100 mg/dL is adequat e for hemostasis in most patients without underlying bleeding disorders. Specimen Anatomical Collection Method Collection Time Receive d Time (Source) Location / / Volume Laterality Blood 02/06/2022 11:30 02/06/2022 AM EDT 11:36 AM EDT Resulting Agency Comment Spec In Lab Jeanette Escamilla APRN HEMATOLOGY ORDERABLES Performing Organization Address City/[facility]/ZIP [facility] [place] [address] Prothrombin Time (02/06/2022 11:30 AM EDT) athologist Signature PT 11.6 9.4 - 12.5 [facility] LABORATORY INR 1.0 [facility] Comment: An INR <2.0 indicates [...] Location / / Volume Laterality Blood 02/06/2022 11:30 02/06/2022 AM EDT 11:36 AM EDT Resulting Agency Comment Spec In Lab Jeanette Escamilla LEVELER HELPER HEMATOLOGY ORDERABLES Performing Organization Address City/State/ZIP Code Phon e Number [place] [phone]OS[address] Platelet count (02/06/2022 11:30 AM EDT) athologist Signature Platelets 164 145 - 357 [facility] x10(3)/[facility] LABORATORY Plat Immature 4.2 0.0 - 7.4 [facility] % % [facility] Comment: Limitation of the Immature Platelet Frac tion (IPF)-May be less reliable when the platelet count is less than 68o911/u L due to statistical imprecision. The IPF [...] in a decreased state of production. References: [employer] The Clinical Value of the Immature Platelet Fraction (IPF) in Cell Recovery Document Number [id number] 12/2010 [employer] The Role of the Imm ature Platelet Fraction (IPF) in the Differential Diagnosis of Thrombocytopen ia, Document [id number] V05 P012/12 Specimen Anatomical Collection Method Collection Time Receive d Time (Source) Location / / Volume Laterality Blood 02/06/2022 11:30 02/06/2022 AM EDT 11:36 AM EDT Resulting Agency Comment Spec In Lab Jeanette Escamilla APRN HEMATOLOGY ORDERABLES Performing Organization Address City/[facility]/[place] [address] (ABNORMAL) Hematocrit (02/06/2022 11:30 AM EDT) P athologist Signature Hematocrit 24.7 (L) 40.5 - [facility] 48.5 % [facility] Specimen Anatomical Collection Method Collection Time Receive d Time (Source) Location / / Volume Laterality Blood 02/06/2022 11:30 02/06/2022 AM EDT 11:36 AM EDT Resulting Agency Comment Spec In Lab Jeanette Escamilla APRN HEMATOLOGY ORDERABLES Performing Organization Address City/[facility]/[place] [address] (ABNORMAL) Hemoglobin (02/06/2022 11:30 AM EDT) P athologist Signature Hemoglobin 8.7 (L) 13.7 - 16.5 [facility] g/dL [facility] Specimen Anatomical Collection Method Collection Time Receive d Time (Source) Location / / Volume Laterality Blood 02/06/2022 11:30 02/06/2022 AM EDT 11:36 AM EDT Resulting Agency Comment Spec In Lab Jeanette Escamilla APRN HEMATOLOGY ORDERABLES Performing Organization Address City/[facility]/[place] [address] (ABNORMAL) Sodium (02/06/2022 11:30 AM EDT) P athologist Signature Sodium 122 (L) 135 - 145 [facility] mmol/L [facility] Specimen Anatomical Collection Method Collection Time Receive d Time (Source) Location / / Volume Laterality Blood 02/06/2022 11:30 02/06/2022 AM EDT 11:36 AM EDT Resulting Agency Comment Spec In Lab Parrish Betancourt MD CHEMISTRY ORDERABLES Performing Organization Address City/[facility]/ZIP Code Phon e Number [place] [phone]OS[address] Prepare RBC (02/06/2022 10:35 AM EDT) P athologist Signature Dispensed? Yes [facility] Specimen Anatomical Collection Method Collection Time Receive d Time (Source) Location / / Volume Laterality Blood 02/06/2022 10:35 02/06/2022 AM EDT 10:32 AM EDT Jeanette Escamilla APRN BLOOD BANK ORDERABLES Performing Organization Address City/[facility]/[place] [address] Fibrinogen (02/06/2022 9:35 AM EDT) athologist Signature Fibrinogen 279 200 - 393 [facility] mg/dL [facility] Comment: A fibrinogen level >100 mg/dL is adequat e for hemostasis in most patients without underlying bleeding disorders. Specimen Anatomical Collection Method Collection Time Receive d Time (Source) Location / / Volume Laterality Blood 02/06/2022 9:35 AM 2 9:44 EDT AM EDT Resulting Agency Comment Spec In Lab Jeanette Escamilla APRN HEMATOLOGY ORDERABLES Performing Organization Address City/[facility]/ZIP Code Phon e Number [address] Prothrombin Time (02/06/2022 9:35 AM EDT) P athologist Signature PT 11.4 9.4 - 12.5 [facility] LABORATORY INR 1.0 [facility] Comment: An INR <2.0 indicates [...] Location / / Volume Laterality Blood 02/06/2022 9:35 AM 2 9:44 EDT AM EDT Resulting Agency Comment Spec In Lab Jeanette E Escamilla LEVELER HELPER HEMATOLOGY ORDERABLES Performing Organization Address City/State/ZIP [place] [address] Platelet count (02/06/2022 9:35 AM EDT) athologist Signature Platelets 174 145 - 357 [facility] x10(3)/[facility] LABORATORY Plat Immature 4.6 0.0 - 7.4 [facility] % % [facility] Comment: Limitation of the Immature Platelet Frac tion (IPF)-May be less reliable when the platelet count is less than 92y684/u L due to statistical imprecision. The IPF [...] in a decreased state of production. References: [employer] The Clinical Value of the Immature Platelet Fraction (IPF) in Cell Recovery Document Number [id number] 12/2010 [employer] The Role of the Imm ature Platelet Fraction (IPF) in the Differential Diagnosis of Thrombocytopen ia, Document [id number] V012/10/13 P012/12 Specimen Anatomical Collection Method Collection Time Receive d Time (Source) Location / / Volume Laterality Blood 02/06/2022 9:35 AM 9:44 EDT AM EDT Resulting Agency Comment Spec In Lab Jeanette Martinez Andi AVENDAÑO HEMATOLOGY ORDERABLES Performing Organization Address City/State/ZIP [place] [address] (ABNORMAL) Hematocrit (02/06/2022 9:35 AM EDT) athologist Signature Hematocrit 25.9 (L) 40.5 - [facility] 48.5 % [facility] Specimen Anatomical Collection Method Collection Time Receive d Time (Source) Location / / Volume Laterality Blood 02/06/2022 9:35 AM 2 9:44 EDT AM EDT Resulting Agency Comment Spec In Lab Jeanette Escamilla KATERYNA HEMATOLOGY ORDERABLES Performing Organization Address City/[facility]/[place] [address] (ABNORMAL) Hemoglobin (02/06/2022 9:35 AM EDT) P athologist Signature Hemoglobin 9.0 (L) 13.7 - 16.5 [facility] g/dL [facility] Specimen Anatomical Collection Method Collection Time Receive d Time (Source) Location / / Volume Laterality Blood 02/06/2022 9:35 AM 2 9:44 EDT AM EDT Resulting Agency Comment Spec In Lab Jeanette Escamilla KATERYNA HEMATOLOGY ORDERABLES Performing Organization Address City/[facility]/ZIP [facility] [place] [address] Transfuse RBC (02/06/2022 9:29 AM EDT) Dunia Pat A Atchinson DO NURSING TREATMENT ORDERAB LES - BLOOD ADMIN Transfuse RBC (02/06/2022 9:29 AM EDT) Dunia Pat A Atchinson DO NURSING TREATMENT ORDERAB LES - BLOOD ADMIN Transfuse RBC (02/06/2022 9:06 AM EDT) Dunia Pat A Atchinson DO NURSING TREATMENT ORDERAB LES - BLOOD ADMIN (ABNORMAL) BLOOD GAS 2 ARTERIAL (02/06/2022 9:06 AM EDT) Analysis Performed At Patho logist Time Signature pH Art 7.46 (H) 7.35 - [facility] 7.45 [facility] pCO2 Art 31 (L) 35 - 45 [facility] mmHg [facility] pO2 Art 89 85 - 104 [facility] mmHg [facility] HCO3 Art 21.5 20.0 - [facility] 26.0 [facility] mmol/L [facility] LABORATORY BE Art -2.3 -3.0 - 3.0 [facility] mmol/L [facility] Hgb Blood Gas 9.5 (L) 13.7 - [facility] 16.5 g/dL [facility] O2HB Art 95.5 94.0 - [facility] 97.0 % [facility] COHB Art 0.3 % [facility] Comment: Nonsmokers: 0.5-1.5% COHB Smokers: Variable, but usually less than 10% Toxic: 20-30% COHB Lethal: Greater than 60% COHB METHB Art 0.8 <=1.5 % [facility] Na Whole Blood 115 (Critical) 135 - 145 mmol/L [facility] Comment: Noted by instrumental teacher. K Whole Blood 5.7 (H) 3.5 - 5.0 mmol/L [facility] Comment: Please note: Patients with WBC >100,000 may have falsely elevated Potassium levels. Contact the Clinical Chemistry L aboratory if there are any questions. ICa Whole Blood 0.93 (L) 1.15 - 1.33 mmol/L [facility] Comment: Note: ??Total bilirubin higher than 20 m g/dL may lead to falsely low ionized calcium. CL Whole Blood 92 (L) 98 - 107 mmol/L [facility] Gluc Whole Bld 138 65 - 199 mg/dL [facility] Comment: Diabetes: >=200 mg/dL plus symp toms. Lactate WB 1.7 0.5 - 2.2 mmol/L [facility] FIO2 Art 21 % [facility] PF Ratio Art 424 [facility] Specimen Anatomical Collection Method Collection Time Receive d Time (Source) Location / / Volume Laterality Blood 02/06/2022 9:06 AM 9:06 EDT AM EDT Dunia Han DO CHEMISTRY ORDERABLES Performing Organization Address City/State/ZIP [place] [address] (ABNORMAL) Phosphorus (02/06/2022 9:00 AM EDT) P athologist Signature Phosphorus 7.1 (H) 2.5 - 4.5 [facility] mg/dL [facility] Specimen Anatomical Collection Method Collection Time Receive d Time (Source) Location / / Volume Laterality Blood 02/06/2022 9:00 AM 2 9:04 EDT AM EDT Resulting Agency Comment Spec In Lab Angelina Reynoso MD CHEMISTRY ORDERABLES Performing Organization Address City/State/ZIP Code Phon e Number [address] Magnesium (02/06/2022 9:00 AM EDT) P athologist Signature Magnesium 0.99 0.69 - 1.07 [facility] mmol/L [facility] Specimen Anatomical Collection Method Collection Time Receive d Time (Source) Location / / Volume Laterality Blood 02/06/2022 9:00 AM 2 9:04 EDT AM EDT Resulting Agency Comment Spec In Lab Angelina Reynoso MD CHEMISTRY ORDERABLES Performing Organization Address City/State/ZIP Code Phon e Number [address] (ABNORMAL) Creatinine (02/06/2022 9:00 AM EDT) Analysis Performed At Patho logist Time Signature Creatinine 4.64 (H) 0.80 - [facility] [place] 1.50 mg/dL [facility] Estimated GFR 16 (L) >=60 [facility] [place] mL/min/1.7 [facility] 3 ? [facility] Comment: This patient's estimated GFR [...] Reynoso MD CHEMISTRY ORDERABLES Performing Organization Address City/[facility]/[place] [address] (ABNORMAL) BUN (02/06/2022 9:00 AM EDT) P athologist Signature BUN 44 (H) 10 - 20 [facility] Specimen Anatomical Collection Method Collection Time Receive d Time (Source) Location / / Volume Laterality Blood 02/06/2022 9:00 AM 2 9:04 EDT AM EDT Resulting Agency Comment Spec In Lab Angelina Reynoso MD CHEMISTRY ORDERABLES Performing Organization Address [facility] [place] [address] (ABNORMAL) Electrolytes panel (02/06/2022 9:00 AM EDT) P athologist Signature Sodium 123 (L) 135 - 145 [facility] mmol/L [facility] Potassium 6.0 (H) 3.5 - 5.0 [facility] mmol/L [facility] Comment: Please note: ??Patients with WBC >100,00 0 may have falsely elevated Potassium levels. ??For accurate Potassium quantif ication in these patients send serum separator tube (gold top) for subsequent determinations. ??Contact the Clinical Chemistry Laboratory if there are any qu estions. Chloride 91 (L) 98 - 107 mmol/L [facility] CO2 23 22 - 31 mmol/L [facility] Anion Gap 9 5 - 15 mmol/L [facility] Specimen Anatomical Collection Method Collection Time Receive d Time (Source) Location / / Volume Laterality Blood 02/06/2022 9:00 AM 2 9:04 EDT AM EDT Resulting Agency Comment Spec In Lab Angelina Reynoso MD CHEMISTRY ORDERABLES Performing Organization Address City/[facility]/ZIP [facility] [place] [address] Transfuse RBC (02/06/2022 8:38 AM EDT) Dunia Han DO NURSING TREATMENT ORDERAB LES - BLOOD ADMIN POCT Glucose (02/06/2022 7:47 AM EDT) athologist Signature POC Glucose 149 65 - 199 [facility] mg/dL [facility] Comment: Supplemental ranges: <140 mg/dL before meals <180 mg/dL all other times of the day Specimen Anatomical Collection Method Collection Time Receive d Time (Source) Location / / Volume Laterality Blood 02/06/2022 7:47 AM 2 7:47 EDT AM EDT Dunia Han DO POINT OF CARE TEST ORDERA BLES Performing Organization Address City/[facility]/ZIP Code Phon e Number [address] Prepare RBC (02/06/2022 7:40 AM EDT) athologist Signature Dispensed? Yes [facility] Specimen Anatomical Collection Method Collection Time Receive d Time (Source) Location / / Volume Laterality Blood 02/06/2022 7:40 AM 2 7:37 EDT AM EDT Dunia Han DO BLOOD BANK ORDERABLES Performing Organization Address City/[facility]/[place] [address] (ABNORMAL) Basic Metabolic Panel (non-fasting) (02/06/2022 7:40 AM EDT) athologist Signature Glucose Lvl 138 65 - 199 [facility] mg/dL [facility] Comment: Diabetes: >=200 mg/dL plus symp toms BUN 44 (H) 10 - 20 mg/dL [facility] Creatinine 4.52 (H) 0.80 - 1.50 mg/dL [facility] Sodium 123 (L) 135 - 145 mmol/L [facility] Potassium 5.4 (H) 3.5 - 5.0 mmol/L [facility] Comment: Please note: ??Patients with WBC >100,00 0 may have falsely elevated Potassium levels. ??For accurate Potassium quantif ication in these patients send serum separator tube (gold top) for subsequent determinations. ??Contact the Clinical Chemistry Laboratory if there are any qu estions. Chloride 91 (L) 98 - 107 mmol/L [facility] CO2 23 22 - 31 mmol/L [facility] Anion Gap 9 5 - 15 mmol/L [facility] Calcium 6.7 (Critical) 8.5 - 10.5 mg/dL [facility] Comment: Called by: , Read back by: Alden Colindres, Date/Time:02/06/22 09:21. Estimated GFR 17 (L) >=60 mL/min/1.73 m?? [facility] Comment: This patient's estimated GFR [...] Location / / Volume Laterality Blood 02/06/2022 7:40 AM 7:55 EDT AM EDT Resulting Agency Comment Spec In Lab Dunia Han DO CHEMISTRY ORDERABLES Performing Organization Address City/State/Z[place] [address] (ABNORMAL) BLOOD GAS 2 VENOUS (02/06/2022 6:19 AM EDT) athologist Signature pH Honorio 7.40 7.32 - [facility] 7.42 [facility] pCO2 Honorio 40 (L) 41 - 51 [facility] LABORATORY pO2 Honorio 31 25 - 40 [facility] LABORATORY HCO3 Honorio 24.2 mmol/L [facility] BE Honorio -0.5 mmol/L [facility] Hgb Blood Gas 8.2 (L) 13.7 - [facility] 16.5 g/dL [facility] O2HB Honorio 65.2 % [facility] COHB Honorio 1.0 % [facility] Comment: Nonsmokers: 0.5-1.5% COHB Smokers: Variable, but usually less than 10% Toxic: 20-30% COHB Lethal: Greater than 60% COHB METHB Honorio 0.9 <=1.5 % [facility] Na Whole Blood 117 (Critical) 135 - 145 mmol/L [facility] Comment: Noted by instrumental teacher. K Whole Blood 5.2 (H) 3.5 - 5.0 mmol/L [facility] Comment: Please note: Patients with WBC >100,000 may have falsely elevated Potassium levels. Contact the Clinical Chemistry L aboratory if there are any questions. ICa Whole Blood 0.96 (L) 1.15 - 1.33 mmol/L [facility] Comment: Note: ??Total bilirubin higher than 20 m g/dL may lead to falsely low ionized calcium. CL Whole Blood 91 (L) 98 - 107 mmol/L [facility] Gluc Whole Bld 113 65 - 199 mg/dL [facility] Comment: Diabetes: >=200 mg/dL plus symp toms Lactate WB 1.3 0.5 - 2.2 mmol/L [facility] BGas Source Venous [facility] Specimen Anatomical Collection Method Collection Time Receive d Time (Source) Location / / Volume Laterality Blood 02/06/2022 6:19 AM 6:19 EDT AM EDT Dunia Han DO CHEMISTRY ORDERABLES Performing Organization Address City/State/ZIP [place] [address] Fibrinogen (02/06/2022 6:16 AM EDT) athologist Signature Fibrinogen 294 200 - 393 [facility] mg/dL [facility] Comment: A fibrinogen level >100 mg/dL is adequat e for hemostasis in most patients without underlying bleeding disorders. Specimen Anatomical Collection Method Collection Time Receive d Time (Source) Location / / Volume Laterality Blood 02/06/2022 6:16 AM 2 6:20 EDT AM EDT Resulting Agency Comment Spec In Lab Danielle Ramirez MD HEMATOLOGY ORDERABLES Performing Organization Address City/[facility]/ZIP Code Phon e Number [address] Prothrombin Time (02/06/2022 6:16 AM EDT) athologist Signature PT 11.6 9.4 - 12.5 [facility] LABORATORY INR 1.0 [facility] Comment: An INR <2.0 indicates [...] Location / / Volume Laterality Blood 02/06/2022 6:16 AM 2 6:20 EDT AM EDT Resulting Agency Comment Spec In Lab Danielle Ramirez MD HEMATOLOGY ORDERABLES Performing Organization Address City/[facility]/ZIP Code Phon e Number [address] Platelet count (02/06/2022 6:16 AM EDT) athologist Signature Platelets 185 145 - 357 [facility] x10(3)/[facility] LABORATORY Plat Immature 2.7 0.0 - 7.4 [facility] % % [facility] Comment: Limitation of the Immature Platelet Frac tion (IPF)-May be less reliable when the platelet count is less than 67v159/u L due to statistical imprecision. The IPF [...] in a decreased state of production. References: [employer] The Clinical Value of the Immature Platelet Fraction (IPF) in Cell Recovery Document Number [id number] 12/2010 [employer] The Role of the Imm ature Platelet Fraction (IPF) in the Differential Diagnosis of Thrombocytopen ia, Document MKT-10-1209 V012/10/13 P012/12 Specimen Anatomical Collection Method Collection Time Receive d Time (Source) Location / / Volume Laterality Blood 02/06/2022 6:16 AM 2 6:20 EDT AM EDT Resulting Agency Comment Spec In Lab Danielle Ramirez MD HEMATOLOGY ORDERABLES Performing Organization Address City/[facility]/Z[place] [address] (ABNORMAL) Hematocrit (02/06/2022 6:16 AM EDT) P athologist Signature Hematocrit 20.5 (L) 40.5 - [facility] 48.5 % [facility] Specimen Anatomical Collection Method Collection Time Receive d Time (Source) Location / / Volume Laterality Blood 02/06/2022 6:16 AM 2 6:20 EDT AM EDT Resulting Agency Comment Spec In Lab Danielle Ramirez MD HEMATOLOGY ORDERABLES Performing Organization Address City/[facility]/ZIP Code Phon e Number [address] (ABNORMAL) Hemoglobin (02/06/2022 6:16 AM EDT) P athologist Signature Hemoglobin 7.5 (L) 13.7 - 16.5 [facility] g/[facility] Specimen Anatomical Collection Method Collection Time Receive d Time (Source) Location / / Volume Laterality Blood 02/06/2022 6:16 AM 6:20 EDT AM EDT Resulting Agency Comment Spec In Lab Danielle Ramirez MD HEMATOLOGY ORDERABLES Performing Organization Address City/State/ZIP [place] [address] (ABNORMAL) BLOOD GAS 2 ARTERIAL (02/06/2022 6:14 AM EDT) Analysis Performed At Patho logist Time Signature pH Art 7.47 (H) 7.35 - [facility] 7.45 [facility] pCO2 Art 33 (L) 35 - 45 [facility] mmHg [facility] pO2 Art 83 (L) 85 - 104 [facility] LABORATORY HCO3 Art 23.3 20.0 - [facility] 26.0 [facility] mmol/L [facility] BE Art -0.3 -3.0 - 3.0 [facility] mmol/L [facility] Hgb Blood Gas 8.4 (L) 13.7 - [facility] 16.5 g/dL [facility] O2HB Art 94.3 94.0 - [facility] 97.0 % [facility] COHB Art 0.3 % [facility] Comment: Nonsmokers: 0.5-1.5% COHB Smokers: Variable, but usually less than 10% Toxic: 20-30% COHB Lethal: Greater than 60% COHB METHB Art 1.0 <=1.5 % [facility] Na Whole Blood 117 (Critical) 135 - 145 mmol/L [facility] Comment: Noted by instrumental teacher. K Whole Blood 5.3 (H) 3.5 - 5.0 mmol/L [facility] Comment: Please note: Patients with WBC >100,000 may have falsely elevated Potassium levels. Contact the Clinical Chemistry L aboratory if there are any questions. ICa Whole Blood 0.96 (L) 1.15 - 1.33 mmol/L [facility] Comment: Note: ??Total bilirubin higher than 20 m g/dL may lead to falsely low ionized calcium. CL Whole Blood 91 (L) 98 - 107 mmol/L [facility] Gluc Whole Bld 117 65 - 199 mg/dL [facility] Comment: Diabetes: >=200 mg/dL plus symp toms. Lactate WB 1.3 0.5 - 2.2 mmol/L [facility] FIO2 Art 21 % [facility] PF Ratio Art 395 [facility] Specimen Anatomical Collection Method Collection Time Receive d Time (Source) Location / / Volume Laterality Blood 02/06/2022 6:14 AM 2 6:14 EDT AM EDT Dunia Han DO CHEMISTRY ORDERABLES Performing Organization Address City/[facility]/ZIP Code Phon e Number [address] Transfuse RBC (02/06/2022 6:01 AM EDT) Dunia Gaines Atchinson DO NURSING TREATMENT ORDERAB LES - BLOOD ADMIN Transfuse RBC (02/06/2022 6:01 AM EDT) Dunia Pat A Atchinson DO NURSING TREATMENT ORDERAB LES - BLOOD ADMIN Blood culture (02/06/2022 6:00 AM EDT) [facility] Method Time Signature Blood Culture No growth [facility] at 5 days. [facility] Specimen Anatomical Collection Method Collection Time Receive d Time (Source) Location / / Volume Laterality Blood 02/06/2022 6:00 AM 2 7:28 EDT AM EDT Resulting Agency Comment Spec In Lab Dunia Han DO MICROBIOLOGY - BLOOD ORDE RABANNA Performing Organization Address City/State/ZIP Code Phon e Number [address] Insert Arterial Line (02/06/2022 5:58 [...] p lanned procedure. ?? Hand Hygiene: The director of business applications did perform h and hygiene prior to [...] N/A Dunia Han DO PROCEDURE/MINOR SURGICAL ORDERABLES Prepare RBC (02/06/2022 4:20 AM EDT) athologist Signature Dispensed? Yes [facility] Specimen Anatomical Collection Method Collection Time Receive d Time (Source) Location / / Volume Laterality Blood 02/06/2022 4:20 AM 2 4:20 EDT AM EDT Dunia Han DO BLOOD BANK ORDERABLES Performing Organization Address City/State/ZIP [place] [address] Scan, Peripheral Blood (02/06/2022 3:48 AM EDT) [facility] gist Method Time Signature Plat Estimate Normal [facility] RBC Morphology Abnormal [facility] Ovalocytes 1-5 /HPF [facility] [place] Cells 1-5 /HPF [facility] Specimen Anatomical Collection Method Collection Time Receive d Time (Source) Location / / Volume Laterality Blood 02/06/2022 3:48 AM 3:51 EDT AM EDT Resulting Agency Comment Spec In Lab Danielle Ramirez MD HEMATOLOGY ORDERABLES Performing Organization Address City/State/ZIP [place] [address] (ABNORMAL) Differential, Automated (02/06/2022 3:48 AM EDT) [facility] Method Time Signature Neutrophils % 56.0 % [facility] Neutr Abs (ANC) 10.94 (H) 1.70 - [facility] 6.10 [facility] x10(3)/[facility] LABORATORY Lymphocytes % 11.6 % [facility] Lymphocytes Abs 2.3 0.9 - 3.2 [facility] x10(3)/[facility] LABORATORY Monocytes % 15.0 % [facility] Monocyte Abs 2.9 (H) 0.3 - 0.9 [facility] x10(3)/[facility] LABORATORY Eosinophils % 1.0 % [facility] Eosinophils Abs 0.2 0.0 - 0.4 [facility] x10(3)[facility] LABORATORY Basophils % 0.6 % [facility] Basophils Abs 0.1 0.0 - 0.1 [facility] x10(3)/[facility] LABORATORY Immature Gran % 15.80 % [facility] Comment: Immature granulocytes(IG's)percentage an d absolute count will include metamyelocytes, myelocytes, and promyelo cytes. Blood smears from CBCs yielding IG's will be scanned manually for concor dance. If this scan disagrees with the automated IG or if promyelocytes are not ed, a manual differential will be performed. Gemini Gran Abs 3.09 (H) 0.00 - 0.04 x10(3)/[facility] LABORATORY Specimen Anatomical Collection Method Collection Time Receive d Time (Source) Location / / Volume Laterality Blood 02/06/2022 3:48 AM 2 3:51 EDT AM EDT Resulting Agency Comment Spec In Lab Danielle Ramirez MD HEMATOLOGY ORDERABLES Performing Organization Address City/State/ZIP [place] [address] (ABNORMAL) Hemogram (02/06/2022 3:48 AM EDT) [facility] gist Method Time Signature WBC 19.5 (H) 4.0 - 9.5 [facility] x10(3)/[facility] [facility] LABORATORY RBC 2.27 (L) 4.58 - [facility] 5.54 [facility] x10(6)/[facility] LABORATORY Hemoglobin 6.9 (L) 13.7 - [facility] 16.5 g/dL [facility]ATORY Hematocrit 19.2 (L) 40.5 - [facility] 48.5 % [facility] MCV 84.6 82.9 - [facility] 93.1 [facility] LABORATORY MCH 30.4 27.5 - [facility] 32.1 pg [facility] MCHC 35.9 (H) 32.0 - [facility] g/dL [facility] Platelets 147 145 - 357 [facility] x10(3)/[facility] LABORATORY RDWSD 45.8 (H) 36.0 - [facility] 45.0 [facility] LABORATORY RDWCV 15.1 (H) 11.4 - [facility] M[facility]O 13.8 % [facility] LABORATORY MPV 9.4 7.6 - 12.9 [facility] nRBC % Auto 0.4 % [facility] LABORATORY nRBC Abs Auto 0.080 (H) 0.000 - [facility] MANDO 0.000 [facility] x10(3)/[facility] LABORATORY Specimen Anatomical Collection Method Collection Time Receive d Time (Source) Location / / Volume Laterality Blood 02/06/2022 3:48 AM 2 3:51 EDT AM EDT Resulting Agency Comment Spec In Lab Danielle Ramirez MD HEMATOLOGY ORDERABLES Performing Organization Address City/State/ZIP [place] [address] (ABNORMAL) BLOOD GAS 2 ARTERIAL (02/06/2022 3:48 AM EDT) P athologist Signature pH Art 7.42 7.35 - [facility] 7.45 [facility] pCO2 Art 40 35 - 45 [facility] mmHg [facility] pO2 Art 36 85 - 104 [facility] (Critical) [facility] LABORATORY Comment: Noted by instrumental teacher. HCO3 Art 25.7 20.0 - 26.0 mmol/L [facility] LABORAT[facility] BE Art 1.3 -3.0 - 3.0 mmol/L [facility] LABORATORY Hgb Blood Gas 7.9 (L) 13.7 - 16.5 g/dL [facility] LABORATORY O2HB Art 73.5 (L) 94.0 - 97.0 % [facility] LABORATORY COHB Art 0.5 % [facility] LABORATORY Comment: Nonsmokers: 0.5-1.5% COHB Smokers: Variable, but usually less than 10% Toxic: 20-30% COHB Lethal: Greater than 60% COHB METHB Art 1.2 <=1.5 % [facility] LABORATORY Na Whole Blood 118 (Critical) 135 - 145 mmol/L [facility] LABORATORY Comment: Noted by instrumental teacher. K Whole Blood 5.2 (H) 3.5 - 5.0 mmol/L [facility] LABORATORY Comment: Please note: Patients with WBC >100,000 may have falsely elevated Potassium levels. Contact the Clinical Chemistry L aboratory if there are any questions. ICa Whole Blood 0.93 (L) 1.15 - 1.33 mmol/L [facility] LABORATORY Comment: Note: ??Total bilirubin higher than 20 m g/dL may lead to falsely low ionized calcium. CL Whole Blood 92 (L) 98 - 107 mmol/L [facility] LABORATORY Gluc Whole Bld 122 65 - 199 mg/dL [facility] LABORATORY Comment: Diabetes: >=200 mg/dL plus symp toms. Lactate WB 1.8 0.5 - 2.2 mmol/L [facility] LABORATORY Temp Art 37.0 Celsius [facility] LABORATORY Specimen Anatomical Collection Method Collection Time Receive d Time (Source) Location / / Volume Laterality Blood 02/06/2022 3:48 AM 2 3:48 EDT AM EDT Dunia Han DO CHEMISTRY ORDERABLES Performing Organization Address City/[facility]/ZIP [place] [address] Prepare RBC (02/06/2022 1:20 AM EDT) P athologist Signature Dispensed? Yes [facility] LABORATORY Specimen Anatomical Collection Method Collection Time Receive d Time (Source) Location / / Volume Laterality Blood 02/06/2022 1:20 AM 2 1:18 EDT AM EDT Dunia Han DO BLOOD BANK ORDERABLES Performing Organization Address City/[facility]/Z[place] [address] Fibrinogen (02/06/2022 12:50 AM EDT) P athologist Signature Fibrinogen 298 200 - 393 [facility] mg/dL [facility] LABORATORY Comment: A fibrinogen level >100 mg/dL is adequat e for hemostasis in most patients without underlying bleeding disorders. Specimen Anatomical Collection Method Collection Time Receive d Time (Source) Location / / Volume Laterality Blood 02/06/2022 12:50 02/06/2022 1:04 AM EDT AM EDT Resulting Agency Comment Spec In Lab Danielle Ramirez MD HEMATOLOGY ORDERABLES Performing Organization Address City/[facility]/ZIP [place] [address] (ABNORMAL) Prothrombin Time (02/06/2022 12:50 AM EDT) P athologist Signature PT 14.6 (H) 9.4 - 12.5 [facility] LABORATORY INR 1.3 [facility] LABORATORY Comment: An INR <2.0 indicates [...] Location / / Volume Laterality Blood 02/06/2022 12:50 02/06/2022 1:04 AM EDT AM EDT Resulting Agency Comment Spec In Lab Danielle Ramirez MD HEMATOLOGY ORDERABLES Performing Organization Address City/State/ZIP [place] [address] Platelet count (02/06/2022 12:50 AM EDT) athologist Signature Platelets 202 145 - 357 [facility] x10(3)/[facility] LABORATORY Plat Immature 3.3 0.0 - 7.4 [facility] % % [facility] LABORATORY Comment: Limitation of the Immature Platelet Frac tion (IPF)-May be less reliable when the platelet count is less than 78m159/u L due to statistical imprecision. The IPF [...] in a decreased state of production. References: [employer] The Clinical Value of the Immature Platelet Fraction (IPF) in Cell Recovery Document Number [id number] 12/2010 [employer] The Role of the Imm ature Platelet Fraction (IPF) in the Differential Diagnosis of Thrombocytopen ia, Document [id number] V05/07/14 P05 Specimen Anatomical Collection Method Collection Time Receive d Time (Source) Location / / Volume Laterality Blood 02/06/2022 12:50 02/06/2022 1:04 AM EDT AM EDT Resulting Agency Comment Spec In Lab Danielle Ramirez MD HEMATOLOGY ORDERABLES Performing Organization Address City/[facility]/Z[place] [address] (ABNORMAL) Hematocrit (02/06/2022 12:50 AM EDT) athologist Signature Hematocrit 13.3 (L) 40.5 - [facility] 48.5 % [facility] LABORATORY Specimen Anatomical Collection Method Collection Time Receive d Time (Source) Location / / Volume Laterality Blood 02/06/2022 12:50 02/06/2022 1:04 AM EDT AM EDT Resulting Agency Comment Spec In Lab Danielle Ramirez MD HEMATOLOGY ORDERABLES Performing Organization Address City/[facility]/Z[place] [address] (ABNORMAL) Hemoglobin (02/06/2022 12:50 AM EDT) athologist Signature Hemoglobin 4.8 13.7 - [facility] (Critical) 16.5 g/dL [facility] LABORATORY Comment: This result has been called to ALCIRA Lomas by Reymundo D eLuna on 02 06 2022 at 0115, and has been read back. Specimen Anatomical Collection Method Collection Time Receive d Time (Source) Location / / Volume Laterality Blood 02/06/2022 12:50 02/06/2022 1:04 AM EDT AM EDT Resulting Agency Comment Spec In Lab Danielle Ramirez MD HEMATOLOGY ORDERABLES Performing Organization Address City/[facility]/[place]IP [facility] [place] [address] (ABNORMAL) Basic Metabolic Panel (non-fasting) (02/06/2022 12:50 AM EDT) athologist Signature Glucose Lvl 177 65 - 199 [facility] mg/dL [facility] LABOR[facility] Comment: Diabetes: >=200 mg/dL plus symp toms BUN 42 (H) 10 - 20 mg/dL [facility] LABORATORY Creatinine 4.29 (H) 0.80 - 1.50 mg/dL [facility] LABORATORY Sodium 124 (L) 135 - 145 mmol/L [facility] LABORATORY Potassium 5.3 (H) 3.5 - 5.0 mmol/L [facility] LABORATORY Comment: Please note: ??Patients with WBC >100,00 0 may have falsely elevated Potassium levels. ??For accurate Potassium quantif ication in these patients send serum separator tube (gold top) for subsequent determinations. ??Contact the Clinical Chemistry Laboratory if there are any qu estions. Chloride 89 (L) 98 - 107 mmol/L [facility] LABORATORY CO2 24 22 - 31 mmol/L [facility] LABORATORY Anion Gap 11 5 - 15 mmol/L [facility] LABORATORY Calcium 6.5 (Critical) 8.5 - 10.5 mg/dL [facility] LABORATORY Comment: called by bm/read back by bon anton 02/06/22 0147 Estimated GFR 18 (L) >=60 mL/min/1.73 m?? [facility] LABORATORY Comment: This patient's estimated GFR [...] Location / / Volume Laterality Blood 02/06/2022 12:50 02/06/2022 1:04 AM EDT AM EDT Resulting Agency Comment Spec In Lab Dunia Han DO CHEMISTRY ORDERABLES Performing Organization Address City/State/Z[place] [address] (ABNORMAL) Phosphorus (02/06/2022 12:50 AM EDT) P athologist Signature Phosphorus 6.5 (H) 2.5 - 4.5 [facility] mg/dL [facility] LABORATORY Specimen Anatomical Collection Method Collection Time Receive d Time (Source) Location / / Volume Laterality Blood 02/06/2022 12:50 02/06/2022 1:04 AM EDT AM EDT Resulting Agency Comment Spec In Lab Gela Novak MD CHEMISTRY ORDERABLES Performing Organization Address City/State/ZIP Code Phon e Number [address] Magnesium (02/06/2022 12:50 AM EDT) P athologist Signature Magnesium 0.88 0.69 - 1.07 [facility] mmol/L [facility] LABOR[facility]ORY Specimen Anatomical Collection Method Collection Time Receive d Time (Source) Location / / Volume Laterality Blood 02/06/2022 12:50 02/06/2022 1:04 AM EDT AM EDT Resulting Agency Comment Spec In Lab Gela Novak MD CHEMISTRY ORDERABLES Performing Organization Address City/[facility]/ZIP Code Phon e Number [address] Transfuse thawed plasma (02/06/2022 12:30 AM EDT) Dunia Han DO NURSING TREATMENT ORDERAB LES - BLOOD ADMIN SCAN DOC: LAB (02/06/2022 12:00 AM EDT) Narrative 02/06/2022 12:00 AM EDT This result has an attachment that is no t available. Ordered by an unspecified provider. Scanning Provider MEDIA MGR SCAN EXT ORDR/RSLT Transfuse thawed plasma (02/05/2022 11:56 PM EDT) Dunia Gaines Atchinstracey DO NURSING TREATMENT ORDERAB LES - BLOOD ADMIN Transfuse thawed plasma (02/05/2022 11:11 PM EDT) Dunia Pat A Atchinson DO NURSING TREATMENT ORDERAB LES - BLOOD ADMIN (ABNORMAL) BLOOD GAS 2 VENOUS (02/05/2022 10:39 PM EDT) P athologist Signature pH Honorio 7.40 7.32 - [facility] 7.42 [facility] pCO2 Honorio 34 (L) 41 - 51 [facility] mmHg [facility] LABORATORY pO2 Honorio 28 25 - 40 [facility] LABORATORY HCO3 Honorio 20.4 mmol/L [facility] LABORATORY BE Honorio -4.5 mmol/L [facility] LABORATORY Hgb Blood Gas 8.7 (L) 13.7 - [facility] 16.5 g/dL [facility] O2HB Honorio 60.3 % [facility] LABORATORY COHB Honorio 0.8 % [facility] LABORATORY Comment: Nonsmokers: 0.5-1.5% COHB Smokers: Variable, but usually less than 10% Toxic: 20-30% COHB Lethal: Greater than 60% COHB METHB Honorio 0.3 <=1.5 % [facility] LABORATORY Na Whole Blood 119 (Critical) 135 - 145 mmol/L [facility] LABORATORY Comment: Noted by instrumental teacher. K Whole Blood 5.3 (H) 3.5 - 5.0 mmol/L [facility] LABORATORY Comment: Please note: Patients with WBC >100,000 may have falsely elevated Potassium levels. Contact the Clinical Chemistry L aboratory if there are any questions. ICa Whole Blood 0.95 (L) 1.15 - 1.33 mmol/L [facility] LABORATORY Comment: Note: ??Total bilirubin higher than 20 m g/dL may lead to falsely low ionized calcium. CL Whole Blood 93 (L) 98 - 107 mmol/L [facility] LABORATORY Gluc Whole Bld 163 65 - 199 mg/dL [facility] LABORATORY Comment: Diabetes: >=200 mg/dL plus symp toms Lactate WB 1.8 0.5 - 2.2 mmol/L [facility] LABORATORY BGas Source Venous [facility] LABORATORY Specimen Anatomical Collection Method Collection Time Receive d Time (Source) Location / / Volume Laterality Blood 02/05/2022 10:39 02/05/2022 PM EDT 10:39 PM EDT Dunia Han DO CHEMISTRY ORDERABLES Performing Organization Address City/State/[place] [address] Transfuse RBC (02/05/2022 10:34 PM EDT) Dilcia Lopez MD NURSING TREATMENT ORDERABLES - BLOOD ADMIN Transfuse RBC (02/05/2022 10:34 PM EDT) Dilcia Lopez MD NURSING TREATMENT ORDERABLES - BLOOD ADMIN (ABNORMAL) Hepatic Function Panel (02/05/2022 9:54 PM EDT) P athologist Signature Total Protein 3.2 (L) 6.1 - 8.0 [facility] g/dL [facility] Albumin 1.4 (L) 3.2 - 5.2 [facility] g/dL [facility] AST 21 0 - 39 [facility] unit/L [facility] ALT <5 0 - 55 [facility] unit/L [facility] Alk Phos 74 40 - 130 [facility] unit/L [facility] LABOR[facility] Total 0.4 0.2 - 1.3 [facility] Bilirubin mg/dL [facility] LABOR[facility] Bili, Direct 0.3 0.0 - 0.3 [facility] mg/dL [facility] LABOR[facility]ORY Specimen Anatomical Collection Method Collection Time Receive d Time (Source) Location / / Volume Laterality Blood 02/05/2022 9:54 PM EDT 10:31 PM EDT Resulting Agency Comment Spec In Lab Dunia Han DO CHEMISTRY ORDERABLES Performing Organization Address City/State/[place] [address] (ABNORMAL) Basic Metabolic Panel (non-fasting) (02/05/2022 9:54 PM EDT) P athologist Signature Glucose Lvl 161 65 - 199 [facility] mg/dL [facility] Comment: Diabetes: >=200 mg/dL plus symp toms BUN 41 (H) 10 - 20 mg/dL [facility] LABORATORY Creatinine 4.29 (H) 0.80 - 1.50 mg/dL [facility] LABORATORY Sodium 123 (L) 135 - 145 mmol/L [facility] LABORATORY Potassium 5.7 (H) 3.5 - 5.0 mmol/L [facility] LABORATORY Comment: Please note: ??Patients with WBC >100,00 0 may have falsely elevated Potassium levels. ??For accurate Potassium quantif ication in these patients send serum separator tube (gold top) for subsequent determinations. ??Contact the Clinical Chemistry Laboratory if there are any qu estions. Chloride 92 (L) 98 - 107 mmol/L [facility] LABORATORY CO2 23 22 - 31 mmol/L [facility] LABORATORY Anion Gap 8 5 - 15 mmol/L [facility] LABORATORY Calcium 6.2 (Critical) 8.5 - 10.5 mg/dL [facility] LABORATORY Comment: called by bm/read back by bon anton 02/05/22 3430 Estimated GFR 18 (L) >=60 mL/min/1.73 m?? [facility] LABORATORY Comment: This patient's estimated GFR [...] Organization Address City/State/ZIP Code Phon e Number [address] Transfuse RBC (02/05/2022 9:25 PM EDT) Dilcia Lopez MD NURSING TREATMENT ORDERABLES - BLOOD ADMIN Transfuse RBC (02/05/2022 9:25 PM EDT) Dilcia Lopez MD NURSING TREATMENT ORDERABLES - BLOOD ADMIN Prepare thawed plasma (02/05/2022 9:10 PM EDT) P athologist Signature Dispensed? Yes [facility] LABORATORY Specimen Anatomical Collection Method Collection Time Receive d Time (Source) Location / / Volume Laterality Blood 02/05/2022 9:10 PM 9:08 EDT PM EDT Dilcia Lopez MD BLOOD BANK ORDERABLES Performing Organization Address City/[facility]/ZIP Code Phon e Number [address] Transfuse RBC (02/05/2022 8:58 PM EDT) Dilcia Lopez MD NURSING TREATMENT ORDERABLES - BLOOD ADMIN Transfuse RBC (02/05/2022 8:58 PM EDT) Dilcia Lopez MD NURSING TREATMENT ORDERABLES - BLOOD ADMIN Prepare RBC (02/05/2022 8:50 PM EDT) P athologist Signature Dispensed? Yes [facility] LABORATORY Specimen Anatomical Collection Method Collection Time Receive d Time (Source) Location / / Volume Laterality Blood 02/05/2022 8:50 PM 8:50 EDT PM EDT Dilcia Lopez MD BLOOD BANK ORDERABLES Performing Organization Address City/State/ZIP Code Phon e Number [address] Prepare RBC (02/05/2022 8:40 PM EDT) P athologist Signature Dispensed? Yes [facility] LABORATORY Specimen Anatomical Collection Method Collection Time Receive d Time (Source) Location / / Volume Laterality Blood 02/05/2022 8:40 PM 07/08/202 2 8:38 EDT PM EDT Dilcia Lopez MD BLOOD BANK ORDERABLES Performing Organization Address City/State/Z[place] [address] (ABNORMAL) Prothrombin Time (02/05/2022 8:35 PM EDT) P athologist Signature PT 56.2 (H) 9.4 - 12.5 [facility] LABORATORY INR 4.9 [facility] LABORATORY Comment: An INR <2.0 indicates [...] Location / / Volume Laterality Blood 02/05/2022 8:35 PM 2 8:45 EDT PM EDT Resulting Agency Comment Spec In Lab Dilcia Lopez MD HEMATOLOGY ORDERABLES Performing Organization Address City/[facility]/Z[place] [address] Fibrinogen (02/05/2022 8:35 PM EDT) P athologist Signature Fibrinogen 314 200 - 393 [facility] mg/dL [facility] Comment: A fibrinogen level >100 mg/dL is adequat e for hemostasis in most patients without underlying bleeding disorders. Specimen Anatomical Collection Method Collection Time Receive d Time (Source) Location / / Volume Laterality Blood 02/05/2022 8:35 PM 2 8:45 EDT PM EDT Resulting Agency Comment Spec In Lab Dilcia Lopez MD HEMATOLOGY ORDERABLES Performing Organization Address City/[facility]/Z[place] [address] Prepare RBC (02/05/2022 7:55 PM EDT) P athologist Signature Dispensed? Yes [facility] LABORATORY Specimen Anatomical Collection Method Collection Time Receive d Time (Source) Location / / Volume Laterality Blood 02/05/2022 7:55 PM 2 7:53 EDT PM EDT Dilcia Lopez MD BLOOD BANK ORDERABLES Performing Organization Address City/State/[place] [address] (ABNORMAL) Differential, Automated (02/05/2022 7:50 PM EDT) [facility] Method Time Signature Neutrophils % 66.9 % [facility] LABORATORY Neutr Abs (ANC) 15.42 (H) 1.70 - [facility] 6.10 [facility] x10(3)/[facility] LABORATORY Lymphocytes % 9.1 % [facility] LABORATORY Lymphocytes Abs 2.1 0.9 - 3.2 [facility] x10(3)/[facility] LABORATORY Monocytes % 11.5 % [facility] LABORATORY Monocyte Abs 2.7 (H) 0.3 - 0.9 [facility] x10(3)/[facility] LABORATORY Eosinophils % 0.4 % [facility] LABORATORY Eosinophils Abs 0.1 0.0 - 0.4 [facility] x10(3)/[facility] LABORATORY Basophils % 0.3 % [facility] LABORATORY Basophils Abs 0.1 0.0 - 0.1 [facility] x10(3)/[facility] LABORATORY Immature Gran % 11.80 % [facility] LABORATORY Comment: Immature granulocytes(IG's)percentage an d absolute count will include metamyelocytes, myelocytes, and promyelo cytes. Blood smears from CBCs yielding IG's will be scanned manually for concor dance. If this scan disagrees with the automated IG or if promyelocytes are not ed, a manual differential will be performed. Gemini Gran Abs 2.73 (H) 0.00 - 0.04 x10(3)/[facility] LABORATORY Specimen Anatomical Collection Method Collection Time Receive d Time (Source) Location / / Volume Laterality Blood 02/05/2022 7:50 PM 8:09 EDT PM EDT Resulting Agency Comment Spec In Lab Dilcia Lopez MD HEMATOLOGY ORDERABLES Performing Organization Address City/State/Z[place] [address] (ABNORMAL) Hemogram (02/05/2022 7:50 PM EDT) athologist Signature WBC 23.1 (H) 4.0 - 9.5 [facility] x10(3)/[facility] LABORATORY RBC 1.62 (L) 4.58 - [facility] 5.54 [facility] x10(6)/[facility] LABORATORY Hemoglobin 4.9 13.7 - [facility] (Critical) 16.5 g/dL [facility]ATORY Comment: This result has been called to SHAHEEN GARZA by Graciela Sherman on 02 05 2022 at 2034, and has been read back. Hematocrit 13.7 (L) 40.5 - 48.5 % [facility] LABORATORY MCV 84.6 82.9 - 93.1 [facility] LABORATORY Comment: This result has been called to SHAHEEN GARZA by Graciela Sherman on 02 05 2022 at 2034, and has been read back. MCH 30.2 27.5 - 32.1 pg [facility] LABORATORY MCHC 35.8 (H) 32.0 - 35.7 g/dL [facility] LABORATORY Platelets 266 145 - 357 x10(3)/[facility] LABORATORY RDWSD 46.3 (H) 36.0 - 45.0 [facility] LABORATORY RDWCV 15.8 (H) 11.4 - 13.8 % [facility] LABORATORY MPV 10.2 7.6 - 12.9 [facility] LABORATORY nRBC % Auto 0.1 % [facility] LABORATORY nRBC Abs Auto 0.030 (H) 0.000 - 0.000 x10(3)/[facility] LABORATORY Specimen Anatomical Collection Method Collection Time Receive d Time (Source) Location / / Volume Laterality Blood 02/05/2022 7:50 PM 2 8:09 EDT PM EDT Resulting Agency Comment Spec In Lab Dilcia Lopez MD HEMATOLOGY ORDERABLES Performing Organization Address City/[facility]/[place] [address] Blood culture (02/05/2022 6:41 PM EDT) Patholo gist Method Time Signature Blood Culture No growth [facility] GILMORE at 5 days. [facility]OR[facility]ORY Specimen Anatomical Collection Method Collection Time Receive d Time (Source) Location / / Volume Laterality Blood 02/05/2022 6:41 PM 2 8:46 EDT PM EDT Comment: R FA Resulting Agency Comment Spec In Lab Dilcia Lopez MD MICROBIOLOGY - BLOOD ORDERAB LES Performing Organization Address City/[facility]/Z[place] [address] (ABNORMAL) Hemoglobin (02/05/2022 5:20 PM EDT) P athologist Signature Hemoglobin 7.1 (L) 13.7 - 16.5 [facility] g/dL [facility] Specimen Anatomical Collection Method Collection Time Receive d Time (Source) Location / / Volume Laterality Blood 02/05/2022 5:20 PM 2 5:30 EDT PM EDT Resulting Agency Comment Spec In Lab Dilcia Lopez MD HEMATOLOGY ORDERABLES Performing Organization Address City/[facility]/Z[place] [address] Prepare RBC (02/05/2022 2:20 PM EDT) P athologist Signature Dispensed? Yes [facility] LABORATORY Specimen Anatomical Collection Method Collection Time Receive d Time (Source) Location / / Volume Laterality Blood 02/05/2022 2:20 PM 2 2:16 EDT PM EDT Tom Valdovinos MD BLOOD BANK ORDERABLES Performing Organization Address City/[facility]/ZIP Code Phon e Number [id number] (ABNORMAL) Hemoglobin (02/05/2022 9:30 AM EDT) P athologist Signature Hemoglobin 7.0 (L) 13.7 - 16.5 [facility] g/dL [facility] Specimen Anatomical Collection Method Collection Time Receive d Time (Source) Location / / Volume Laterality Blood 02/05/2022 9:30 AM 9:39 EDT AM EDT Resulting Agency Comment Spec In Lab Dilcia Lopez MD HEMATOLOGY ORDERABLES Performing Organization Address City/State/ZIP Code Phon e Number [address] Transfuse RBC (02/05/2022 6:54 AM EDT) Coty Walton MD NURSING TREATMENT ORDERABLES - BLOOD ADMIN Transfuse RBC (02/05/2022 6:54 AM EDT) Coty Walton MD NURSING TREATMENT ORDERABLES - BLOOD ADMIN Transfuse RBC (02/05/2022 5:07 AM EDT) Coty Walton MD NURSING TREATMENT ORDERABLES - BLOOD ADMIN Prepare RBC (02/05/2022 2:35 AM EDT) athologist Signature Dispensed? Yes [facility] LABORATORY Specimen Anatomical Collection Method Collection Time Receive d Time (Source) Location / / Volume Laterality Blood 02/05/2022 2:35 AM 2 2:34 EDT AM EDT Coty Walton MD BLOOD BANK ORDERABLES Performing Organization Address City/[facility]/[place] [address] Type and Screen Validity (02/05/2022 1:50 AM EDT) [facility] gist Method Time Signature T&S only valid [facility] at [facility] Comment: This Type and Screen result is only valid at the [facility] Specimen Anatomical Collection Method Collection Time Receive d Time (Source) Location / / Volume Laterality Blood 02/05/2022 1:50 AM 2 2:08 EDT AM EDT Resulting Agency Comment Spec In Lab Coty Walton MD BLOOD BANK ORDERABLES Performing Organization Address City/State/[place] [address] ABORH Recheck Status (02/05/2022 1:50 AM EDT) [facility] Method Time Signature ABORH Type Completed [facility] LABORATORY Specimen Anatomical Collection Method Collection Time Receive d Time (Source) Location / / Volume Laterality Blood 02/05/2022 1:50 AM 2 2:08 EDT AM EDT Resulting Agency Comment Spec In Lab Coty Walton MD BLOOD BANK ORDERABLES Performing Organization Address City/[facility]/[place] [address] Antibody screen (02/05/2022 1:50 AM EDT) [facility] Method Time Signature Ab Screen Negative [facility] LABORATORY Expires at 02/08/2022 [facility] [id number] on: [facility] Specimen Anatomical Collection Method Collection Time Receive d Time (Source) Location / / Volume Laterality Blood 02/05/2022 1:50 AM 2 2:08 EDT AM EDT Resulting Agency Comment Spec In Lab Coty Walton MD BLOOD BANK ORDERABLES Performing Organization Address City/[facility]/[place] [address] ABO/Rh Typing (02/05/2022 1:50 AM EDT) P athologist Signature ABORh Type A Pos [facility] Specimen Anatomical Collection Method Collection Time Receive d Time (Source) Location / / Volume Laterality Blood 02/05/2022 1:50 AM 2 2:08 EDT AM EDT Resulting Agency Comment Spec In Lab Coty Walton MD BLOOD BANK ORDERABLES Performing Organization Address City/State/[place] [address] (ABNORMAL) Differential, Automated (02/05/2022 12:56 AM EDT) Patholo gist Method Time Signature Neutrophils % 71.9 % [facility] Neutr Abs (ANC) 21.60 (H) 1.70 - [facility] 6.10 [facility] x10(3)/[facility] LABORATORY Lymphocytes % 8.3 % [facility] Lymphocytes Abs 2.5 0.9 - 3.2 [facility] x10(3)/[facility] LABORATORY Monocytes % 8.8 % [facility] Monocyte Abs 2.6 (H) 0.3 - 0.9 [facility] x10(3)/[facility] LABORATORY Eosinophils % 0.4 % [facility] Eosinophils Abs 0.1 0.0 - 0.4 [facility] x10(3)/[facility] LABORATORY Basophils % 0.3 % [facility] Basophils Abs 0.1 0.0 - 0.1 [facility] x10(3)/[facility] LABORATORY Immature Gran % 10.30 % [facility] Comment: Immature granulocytes(IG's)percentage an d absolute count will include metamyelocytes, myelocytes, and promyelo cytes. Blood smears from CBCs yielding IG's will be scanned manually for concor dance. If this scan disagrees with the automated IG or if promyelocytes are not ed, a manual differential will be performed. Gemini Gran Abs 3.11 (H) 0.00 - 0.04 x10(3)/[facility] LABORATORY Specimen Anatomical Collection Method Collection Time Receive d Time (Source) Location / / Volume Laterality Blood 02/05/2022 12:56 02/05/2022 1:20 AM EDT AM EDT Resulting Agency Comment Spec In Lab Dilcia Lopez MD HEMATOLOGY ORDERABLES Performing Organization Address City/State/ZIP Code Phon e Number [place] [id number] [facility] LABORATORY Drive (ABNORMAL) Hemogram (02/05/2022 12:56 AM EDT) athologist Signature WBC 30.1 4.0 - 9.5 [facility] (Critical) x10(3)/[facility] LABORATORY Comment: This result has been called to WILLIE PAYNE by GAMA THOMPSON on 02 05 2022 at 0137, and has been read back. RBC 1.61 (L) 4.58 - 5.54 x10(6)/[facility] LABORATORY Hemoglobin 5.2 (Critical) 13.7 - 16.5 g/dL [facility] LABORATORY Comment: This result has been called to WILLIE PAYNE by GAMA THOMPSON on 02 05 2022 at 0137, and has been read back. Hematocrit 14.8 (L) 40.5 - 48.5 % [facility] LABORATORY MCV 91.9 82.9 - 93.1 [facility] LABORATORY MCH 32.3 (H) 27.5 - 32.1 pg [facility] LABORATORY MCHC 35.1 32.0 - 35.7 g/dL [facility] LABORATORY Platelets 363 (H) 145 - 357 x10(3)/[facility] LABORATORY RDWSD 47.0 (H) 36.0 - 45.0 [facility] LABORATORY RDWCV 14.8 (H) 11.4 - 13.8 % [facility] LABORATORY MPV 10.3 7.6 - 12.9 [facility] LABORATORY nRBC % Auto 0.1 % [facility] LABORATORY nRBC Abs Auto 0.020 (H) 0.000 - 0.000 x10(3)/[facility] LABORATORY Specimen Anatomical Collection Method Collection Time Receive d Time (Source) Location / / Volume Laterality Blood 02/05/2022 12:56 02/05/2022 1:20 AM EDT AM EDT Resulting Agency Comment Spec In Lab Dilcia Lopez MD HEMATOLOGY ORDERABLES Performing Organization Address City/State/ZIP [place] [address] (ABNORMAL) Basic Metabolic Panel (non-fasting) (02/05/2022 12:56 AM EDT) P athologist Signature Glucose Lvl 125 65 - 199 [facility] mg/dL [facility] Comment: Diabetes: >=200 mg/dL plus symp toms BUN 49 (H) 10 - 20 mg/dL [facility] LABORATORY Creatinine 4.98 (H) 0.80 - 1.50 mg/dL [facility] LABORATORY Sodium 122 (L) 135 - 145 mmol/L [facility] LABORATORY Potassium 5.9 (H) 3.5 - 5.0 mmol/L [facility] LABORATORY Comment: Please note: ??Patients with WBC >100,00 0 may have falsely elevated Potassium levels. ??For accurate Potassium quantif ication in these patients send serum separator tube (gold top) for subsequent determinations. ??Contact the Clinical Chemistry Laboratory if there are any qu estions. Chloride 90 (L) 98 - 107 mmol/L [facility] CO2 24 22 - 31 mmol/L [facility] Anion Gap 8 5 - 15 mmol/L [facility] LABORATORY Calcium 6.4 (Critical) 8.5 - 10.5 mg/dL [facility] LABORATORY Comment: Called by: wesley, Read back by: Jesus Whittaker, Date/Time:02/05/22 02:07. Estimated GFR 15 (L) >=60 mL/min/1.73 m?? [facility] Comment: This patient's estimated GFR [...] Location / / Volume Laterality Blood 02/05/2022 12:56 02/05/2022 1:20 AM EDT AM EDT Resulting Agency Comment Spec In Lab Dunia Han DO CHEMISTRY ORDERABLES Performing Organization Address City/State/Z[place] [address] (ABNORMAL) Phosphorus (02/05/2022 12:56 AM EDT) P athologist Signature Phosphorus 7.1 (H) 2.5 - 4.5 [facility] Specimen Anatomical Collection Method Collection Time Receive d Time (Source) Location / / Volume Laterality Blood 02/05/2022 12:56 02/05/2022 1:20 AM EDT AM EDT Resulting Agency Comment Spec In Lab Gela Novak MD CHEMISTRY ORDERABLES Performing Organization Address City/[facility]/ZIP [place] [address] Magnesium (02/05/2022 12:56 AM EDT) P athologist Signature Magnesium 0.84 0.69 - 1.07 [facility] mmol/L [facility] Specimen Anatomical Collection Method Collection Time Receive d Time (Source) Location / / Volume Laterality Blood 02/05/2022 12:56 02/05/2022 1:20 AM EDT AM EDT Resulting Agency Comment Spec In Lab Gela Novak MD CHEMISTRY ORDERABLES Performing Organization Address City/[facility]/[place] [address] (ABNORMAL) BLOOD GAS 2 VENOUS (02/04/2022 6:43 PM EDT) P athologist Signature pH Honorio 7.34 7.32 - [facility] 7.42 [facility] pCO2 Honorio 43 41 - 51 [facility] LABORATORY pO2 Honorio 34 25 - 40 [facility] LABORATORY HCO3 Honorio 22.6 mmol/L [facility] BE Honorio -3.2 mmol/L [facility] Hgb Blood Gas 7.4 (L) 13.7 - [facility] 16.5 g/dL [facility] O2HB Honorio 58.9 % [facility] COHB Honorio 1.8 % [facility] Comment: Nonsmokers: 0.5-1.5% COHB Smokers: Variable, but usually less than 10% Toxic: 20-30% COHB Lethal: Greater than 60% COHB METHB Honorio 0.3 <=1.5 % [facility] LABORATORY Na Whole Blood 118 (Critical) 135 - 145 mmol/L [facility] K Whole Blood 5.2 (H) 3.5 - 5.0 mmol/L [facility] LAB[facility] Comment: Please note: Patients with WBC >100,000 may have falsely elevated Potassium levels. Contact the Clinical Chemistry L aboratory if there are any questions. ICa Whole Blood 0.99 (L) 1.15 - 1.33 mmol/L [facility] Comment: Note: ??Total bilirubin higher than 20 m g/dL may lead to falsely low ionized calcium. CL Whole Blood 92 (L) 98 - 107 mmol/L [facility] LAB[facility] Gluc Whole Bld 100 65 - 199 mg/dL [facility] LABORATORY Comment: Diabetes: >=200 mg/dL plus symp toms Lactate WB 1.5 0.5 - 2.2 mmol/L [facility] LABORAT[facility] BGas Source Venous [facility] LABORATORY Specimen Anatomical Collection Method Collection Time Receive d Time (Source) Location / / Volume Laterality Blood 02/04/2022 6:43 PM 6:43 EDT PM EDT Dilcia Lopez MD CHEMISTRY ORDERABLES Performing Organization Address City/State/ZIP [place] [address] Trichomonas Gene Amp ([facility] [place]CGP/APD/[facility]H) Urine (02/04/2022 4:20 PM EDT) Analysis Performed At [facility] Time Signature Trich Gene Amp Negative Negative [facility] Comment: The only FDA approved specimen types for this assay are cervix and vaginal. Trich Source Urine [facility] LABORATORY Specimen Anatomical Collection Method Collection Time Receive d Time (Source) Location / / Volume Laterality Urine 02/04/2022 4:20 PM 2 5:03 EDT PM EDT Resulting Agency Comment Spec In Lab Dilcia Lopez MD MICROBIOLOGY - GENERAL ORDER JT Performing Organization Address City/[facility]/ZIP Code Phon e [address] Chlamydia Gene Amp ([facility] [place]/APD/NLH) Urine (02/04/2022 4:20 PM EDT) Analysis Performed At Patho logist Time Signature Chlamydia Gene Negative Negative [facility] LABORATORY Comment: The only FDA approved specimen types for this assay are cervical, vaginal, urethral and urine. Non-FDA approved myriam rces are eye, throat and rectal and have been internally validated. Chlamydia Source Urine [facility] LABORATORY Specimen Anatomical Collection Method Collection Time Receive d Time (Source) Location / / Volume Laterality Urine 02/04/2022 4:20 PM 2 5:03 EDT PM EDT Resulting Agency Comment Spec In Lab Dilcia Lopez MD MICROBIOLOGY - GENERAL ORDER JT Performing Organization Address City/[facility]/ZIP Code Phon [address] GC Gene Amp ([facility] [place]APD/NLH) Urine (02/04/2022 4:20 PM EDT) P athologist Signature GC Gene Amp Negative Negative [facility] Comment: The only FDA approved specimen types for this assay are cervical, vaginal, urethral and urine. Non-FDA approved myriam rces are eye, throat and rectal and have been internally validated. GC Source Urine [facility] LABORATORY Specimen Anatomical Collection Method Collection Time Receive d Time (Source) Location / / Volume Laterality Urine 02/04/2022 4:20 PM 2 5:03 EDT PM EDT Resulting Agency Comment Spec In Lab Dilcia Lopez MD MICROBIOLOGY - GENERAL ORDER JT Performing Organization Address City/State/ZIP [place] [address] EKG 12 Lead (02/04/2022 6:17 AM EDT) Component Value Ref Range Test Analysis Performed Pathologis t Method Time At Signature Ventricular rate 99 BPM MUSE SYSTEM Atrial Rate 99 BPM MUSE SYSTEM P-R Interval 146 ms MUSE SYSTEM QRS Duration 96 ms MUSE SYSTEM Q-T Interval 336 ms MUSE SYSTEM QTC Calculated 431 ms MUSE SYSTEM (Bezet) Calculated P Blackwood 37 degrees MUSE SYSTEM Calculated R [place] 16 degrees MUSE SYSTEM Calculated T Blackwood 14 degrees MUSE SYSTEM INTERPRETATION Normal sinus rhythm MUSE SYSTEM Normal ECG When compared with ECG of 30-JAN-2022 09:18, Nonspecific T wave abnormality, improved in Inferior leads Confirmed by Tucker Beard ([id number]) on 02/04/2022 5:25:0 4 PM Specimen Anatomical Collection Method Collection Time Receive d Time (Source) Location / / Volume Laterality 02/04/2022 6:17 AM 5:25 EDT PM EDT Candida Krishna MD ECG ORDERABLES Performing Organization Address City/[facility]/ZIP Code Phon e Number MUSE SYSTEM (ABNORMAL) Albumin Level (02/04/2022 4:21 AM EDT) P athologist Signature Albumin 1.7 (L) 3.2 - 5.2 [facility] g/dL [facility] Specimen Anatomical Collection Method Collection Time Receive d Time (Source) Location / / Volume Laterality Blood Venous Draw / 02/04/2022 4:21 AM 02/05/20 4:25 Unknown EDT AM EDT Resulting Agency Comment Spec In Lab Candida Krishna MD CHEMISTRY ORDERABLES Performing Organization Address City/State/ZIP [place] [address] (ABNORMAL) Differential, Automated (02/04/2022 4:21 AM EDT) Patholo gist Method Time Signature Neutrophils % 71.7 % [facility] LABORATORY Neutr Abs (ANC) 22.88 (H) 1.70 - [facility] 6.10 [facility] x10(3)/[facility] LABORATORY Lymphocytes % 8.4 % [facility] LABORAT[facility] Lymphocytes Abs 2.7 0.9 - 3.2 [facility] x10(3)/[facility] LABORATORY Monocytes % 8.2 % [facility] LABORATORY Monocyte Abs 2.6 (H) 0.3 - 0.9 [facility] x10(3)/[facility] LABORATORY Eosinophils % 1.4 % [facility] LABORATORY Eosinophils Abs 0.4 0.0 - 0.4 [facility] x10(3)/[facility] LABORATORY Basophils % 0.6 % [facility] LABORATORY Basophils Abs 0.2 (H) 0.0 - 0.1 [facility] x10(3)/[facility] LABORATORY Immature Gran % 9.70 % [facility] LABORATORY Comment: Immature granulocytes(IG's)percentage an d absolute count will include metamyelocytes, myelocytes, and promyelo cytes. Blood smears from CBCs yielding IG's will be scanned manually for concor dance. If this scan disagrees with the automated IG or if promyelocytes are not ed, a manual differential will be performed. Gemini Gran Abs 3.09 (H) 0.00 - 0.04 x10(3)/[facility] LABORATORY Specimen Anatomical Collection Method Collection Time Receive d Time (Source) Location / / Volume Laterality Blood 02/04/2022 4:21 AM 4:24 EDT AM EDT Resulting Agency Comment Spec In Lab Dilcia Lopez MD HEMATOLOGY ORDERABLES Performing Organization Address City/State/Z[place] [address] (ABNORMAL) Hemogram (02/04/2022 4:21 AM EDT) athologist Signature WBC 31.9 4.0 - 9.5 [facility] (Critical) x10(3)/[facility] LABORATORY Comment: This result has been called to NIKKI SANZ by Nicki Bazzi on 02 04 2022 at 0434, and has been read back. RBC 2.40 (L) 4.58 - 5.54 x10(6)/[facility] LABORATORY Hemoglobin 7.7 (L) 13.7 - 16.5 g/dL [facility] LABORATORY Hematocrit 21.4 (L) 40.5 - 48.5 % [facility] LABORATORY MCV 89.2 82.9 - 93.1 fL [facility] LABORATORY MCH 32.1 27.5 - 32.1 pg [facility] LABORATORY MCHC 36.0 (H) 32.0 - 35.7 g/dL [facility] LABORATORY Platelets 303 145 - 357 x10(3)/[facility] LABORATORY RDWSD 46.1 (H) 36.0 - 45.0 [facility] LABORATORY RDWCV 14.6 (H) 11.4 - 13.8 % [facility] LABORATORY MPV 9.8 7.6 - 12.9 [facility] LABORATORY nRBC % Auto 0.0 % [facility] LABORATORY nRBC Abs Auto 0.000 0.000 - 0.000 x10(3)/[facility] LABORATORY Specimen Anatomical Collection Method Collection Time Receive d Time (Source) Location / / Volume Laterality Blood 02/04/2022 4:21 AM 4:24 EDT AM EDT Resulting Agency Comment Spec In Lab Dilcia Lopez MD HEMATOLOGY ORDERABLES Performing Organization Address City/State/Z[place] [address] (ABNORMAL) Basic Metabolic Panel (non-fasting) (02/04/2022 4:21 AM EDT) athologist Signature Glucose Lvl 100 65 - 199 [facility] mg/dL [facility] Comment: Diabetes: >=200 mg/dL plus symp toms BUN 64 (H) 10 - 20 mg/dL [facility] LABORATORY Creatinine 5.55 (H) 0.80 - 1.50 mg/dL [facility] LABORATORY Comment: result rechecked-KS Sodium 120 (L) 135 - 145 mmol/L [facility] LABORATORY Potassium 5.7 (H) 3.5 - 5.0 mmol/L [facility] LABORATORY Comment: Please note: ??Patients with WBC >100,00 0 may have falsely elevated Potassium levels. ??For accurate Potassium quantif ication in these patients send serum separator tube (gold top) for subsequent determinations. ??Contact the Clinical Chemistry Laboratory if there are any qu estions. Chloride 91 (L) 98 - 107 mmol/L [facility] CO2 19 (L) 22 - 31 mmol/L [facility] Anion Gap 10 5 - 15 mmol/L [facility] LABORATORY Calcium 6.3 (Critical) 8.5 - 10.5 mg/dL [facility] LABORATORY Comment: called by KEYUR/read back by Yessi Esteves / 02/04/22 0513 Estimated GFR 13 (L) >=60 mL/min/1.73 m?? [facility] Comment: This patient's estimated GFR [...] (Source) Location / / Volume Laterality Blood 02/04/2022 4:21 AM 4:24 EDT AM EDT Resulting Agency Comment Spec In Lab Dunia Han DO CHEMISTRY ORDERABLES Performing Organization Address City/State/ZIP [place] [address] (ABNORMAL) Phosphorus (02/04/2022 4:21 AM EDT) P athologist Signature Phosphorus 7.5 (H) 2.5 - 4.5 [facility] mg/dL [facility] Specimen Anatomical Collection Method Collection Time Receive d Time (Source) Location / / Volume Laterality Blood 02/04/2022 4:21 AM 2 4:24 EDT AM EDT Resulting Agency Comment Spec In Lab Gela Novak MD CHEMISTRY ORDERABLES Performing Organization Address City/[facility]/ZIP [place] [address] Magnesium (02/04/2022 4:21 AM EDT) athologist Signature Magnesium 0.88 0.69 - 1.07 [facility] mmol/L [facility] Specimen Anatomical Collection Method Collection Time Receive d Time (Source) Location / / Volume Laterality Blood 02/04/2022 4:21 AM 2 4:24 EDT AM EDT Resulting Agency Comment Spec In Lab Gela Novak MD CHEMISTRY ORDERABLES Performing Organization Address City/[facility]/Z[place] [address] Transfuse RBC (02/03/2022 6:36 PM EDT) Dilcia Lopez MD NURSING TREATMENT ORDERABLES - BLOOD ADMIN Transfuse RBC (02/03/2022 6:36 PM EDT) Dilcia Lopez MD NURSING TREATMENT ORDERABLES - BLOOD ADMIN POCT Glucose (02/03/2022 3:40 PM EDT) athologist Signature POC Glucose 127 65 - 199 [facility] mg/dL [facility] Comment: Supplemental ranges: <140 mg/dL before meals <180 mg/dL all other times of the day Specimen Anatomical Collection Method Collection Time Receive d Time (Source) Location / / Volume Laterality Blood 02/03/2022 3:40 PM 2 3:40 EDT PM EDT Dilcia Lopez MD POINT OF CARE TEST ORDERABLE S Performing Organization Address City/[facility]/ZIP Code Phon e Number [place] [phone] HOSPITAL LAB[address]ORY Drive Prepare RBC (02/03/2022 3:20 PM EDT) athologist Signature Dispensed? No [facility] LABORATORY Specimen Anatomical Collection Method Collection Time Receive d Time (Source) Location / / Volume Laterality Blood 02/03/2022 3:20 PM 3:19 EDT PM EDT Dilcia Lopez MD BLOOD BANK ORDERABLES Performing Organization Address City/State/ZIP Code Phon e Number [address] (ABNORMAL) Hemogram (02/03/2022 2:15 PM EDT) athologist Signature WBC 30.1 4.0 - 9.5 [facility] (Critical) x10(3)/[facility] LABORATORY Comment: This result has been called to VINOD WILCOX by Sarah Robison on 02 03 2022 at 1432, and has been read ba ck. RBC 2.14 (L) 4.58 - 5.54 x10(6)/[facility] LABORATORY Hemoglobin 6.8 (L) 13.7 - 16.5 g/dL [facility] LABORATORY Hematocrit 19.4 (L) 40.5 - 48.5 % [facility] LABORATORY MCV 90.7 82.9 - 93.1 fL [facility] LABORATORY MCH 31.8 27.5 - 32.1 pg [facility] LABORATORY MCHC 35.1 32.0 - 35.7 g/dL [facility] LABORATORY Platelets 333 145 - 357 x10(3)/[facility] LABORATORY RDWSD 45.9 (H) 36.0 - 45.0 fL [facility] LABORATORY RDWCV 14.2 (H) 11.4 - 13.8 % [facility] LABORATORY MPV 10.0 7.6 - 12.9 [facility] LABORATORY nRBC % Auto 0.0 % [facility] LABORATORY nRBC Abs Auto 0.000 0.000 - 0.000 x10(3)/mcL [facility] LABORATORY Specimen Anatomical Collection Method Collection Time Receive d Time (Source) Location / / Volume Laterality Blood 02/03/2022 2:15 PM 2:21 EDT PM EDT Resulting Agency Comment Spec In Lab Dilcia Lopez MD HEMATOLOGY ORDERABLES Performing Organization Address City/State/Z[place] [address] Transfuse RBC (02/03/2022 11:43 AM EDT) Raimundo Lara MD NURSING TREATMENT ORDER JT - BLOOD ADMIN Transfuse RBC (02/03/2022 11:43 AM EDT) Raimundo Lara MD NURSING TREATMENT ORDER JT - BLOOD ADMIN POCT Glucose (02/03/2022 11:42 AM EDT) P athologist Signature POC Glucose 129 65 - 199 [facility] mg/dL [facility] Comment: Supplemental ranges: <140 mg/dL before meals <180 mg/dL all other times of the day Specimen Anatomical Collection Method Collection Time Receive d Time (Source) Location / / Volume Laterality Blood 02/03/2022 11:42 02/03/2022 AM EDT 11:42 AM EDT Erika Retana MD POINT OF CARE TEST ORDERABLE S Performing Organization Address City/[facility]/ZIP Code Phon e Number [address] Duplex for DVT, Arm, Unilat (02/03/2022 9:07 AM EDT) Component Value Ref Test Analysis Performed At Patholo gist Range Method Time Signature VB Text Department: Vascular Surgery Lab VASCUBASE Report Patient: [id number] (ALIX HOLLAND) CPT: 76578 Referring Physician: AGNIESZKA LÓPEZ ?? Phone: Indications: fever, fasciotomies 01/29 and 02/02, edema, ? DVT Findings: NOTE: Limited exam due to IV/central lines, wound vac and fa sciotomy. LEF: The axillary, brachial, cephalic and basilic vein s are patent and fully compressible with no evidenc e of thrombus.While compression maneuvers cannot be performed on the subclavian vein, there is no pu lsed Doppler or color Doppler evidence to suggest thrombus in this vein. Unable to study internal jugular vein an d innominate vein due to central line; cannot exclude thrombus here . Unable to study veins in the forearm due to wound vac and fasciotomy. Unable t o study contralateral subclavian vein due to IV and bandages. Interpretation: LEFT: No evidence of upper extremity lisa p or superficial venous thrombus where clearly visualized. Comparison: ?? No previous study in our vascular lab database for comparison. Electronically Signed by: NAHED BENITES on 2022-02-05 09:41:16 AM VB Text End of Report VASCUBASE Report Specimen (Source) Anatomical Collection Method Collection Time Re ceived Time Location / / Volume Laterality 02/03/2022 9:07 AM EDT Erika Retana MD VASCULAR ORDERABLES Performing Organization Address City/State/ZIP Code Phon e Number [facility] Duplex Study for DVT, Bilat legs (02/03/2022 9:07 AM EDT) Component Value Ref Test Analysis Performed At [facility] Range Method Time Signature VB Text Department: Vascular Surgery Lab VASCUBASE Report Patient: [id number] (ALXI HOLLAND) CPT: [id number] Referring Physician: AGNIESZKA LÓPEZ ?? Phone: Indications: [...] Volume Laterality 02/03/2022 9:07 AM EDT Erika Retana MD VASCULAR ORDERABLES Performing Organization Address City/State/ZIP Code Phon e Number [email or web address] POCT Glucose (02/03/2022 8:17 AM EDT) athologist Signature POC Glucose 128 65 - 199 [facility] mg/dL [facility] Comment: Supplemental ranges: <140 mg/dL before meals <180 mg/dL all other times of the day Specimen Anatomical Collection Method Collection Time Receive d Time (Source) Location / / Volume Laterality Blood 02/03/2022 8:17 AM 8:17 EDT AM EDT Erika Retana MD POINT OF CARE TEST ORDERABLE S Performing Organization Address City/[facility]/ZIP [place] [address] Prepare RBC (02/03/2022 7:51 AM EDT) athologist Signature Dispensed? Yes [facility] Specimen Anatomical Collection Method Collection Time Receive d Time (Source) Location / / Volume Laterality Blood No Charge / 02/03/2022 7:51 AM 2 7:51 Unknown EDT AM EDT Resulting Agency Comment Spec In Lab Raimundo Lara MD BLOOD BANK ORDERABLES Performing Organization Address City/[facility]/[place]IP [place] [address] Prepare RBC (02/03/2022 7:45 AM EDT) athologist Signature Dispensed? Yes [facility] Specimen Anatomical Collection Method Collection Time Receive d Time (Source) Location / / Volume Laterality Blood 02/03/2022 7:45 AM 2 7:42 EDT AM EDT Raimundo Lara MD BLOOD BANK ORDERABLES Performing Organization Address [facility] [place] [address] (ABNORMAL) Hemoglobin and Hematocrit, blood (02/03/2022 6:47 AM EDT) P athologist Signature Hemoglobin 5.6 13.7 - [facility] (Critical) 16.5 g/dL [facility] Comment: This result has been called to EMANI EHSS by Sarah Robison on 02 03 2022 at 0738, and has been read back. Hematocrit 16.0 (L) 40.5 - 48.5 % [facility] Specimen Anatomical Collection Method Collection Time Receive d Time (Source) Location / / Volume Laterality Blood 02/03/2022 6:47 AM 2 7:05 EDT AM EDT Resulting Agency Comment Spec In Lab Raimundo Lara MD HEMATOLOGY ORDERABLES Performing Organization Address City/[facility]/ZIP [facility] [place] [address] Scan, Peripheral Blood (02/03/2022 4:55 AM EDT) Patholo gist Method Time Signature Plat Estimate Normal [facility] RBC Morphology Abnormal [facility] Macrocytes 1-5 /HPF [facility] Microcytes 1-5 /HPF [facility] Stippled RBCs Present >1/HPF [facility] Specimen Anatomical Collection Method Collection Time Receive d Time (Source) Location / / Volume Laterality Blood 02/03/2022 4:55 AM 5:09 EDT AM EDT Resulting Agency Comment Spec In Lab Dimas Hernandez MD HEMATOLOGY ORDERABLES Performing Organization Address City/State/ZIP [place] [address] (ABNORMAL) Differential, Automated (02/03/2022 4:55 AM EDT) [facility] Method Time Signature Neutrophils % 68.7 % [facility] Neutr Abs (ANC) 21.19 (H) 1.70 - [facility] 6.10 [facility] x10(3)/[facility] LABORATORY Lymphocytes % 10.5 % [facility] Lymphocytes Abs 3.2 0.9 - 3.2 [facility] x10(3)/[facility] LABORATORY Monocytes % 8.7 % [facility] Monocyte Abs 2.7 (H) 0.3 - 0.9 [facility] x10(3)/[facility] LABORATORY Eosinophils % 1.6 % [facility] Eosinophils Abs 0.5 (H) 0.0 - 0.4 [facility] x10(3)/[facility] LABORATORY Basophils % 0.3 % [facility] Basophils Abs 0.1 0.0 - 0.1 [facility] x10(3)/[facility] LABORATORY Immature Gran % 10.20 % [facility] Comment: Immature granulocytes(IG's)percentage an d absolute count will include metamyelocytes, myelocytes, and promyelo cytes. Blood smears from CBCs yielding IG's will be scanned manually for concor dance. If this scan disagrees with the automated IG or if promyelocytes are not ed, a manual differential will be performed. Gemini Gran Abs 3.13 (H) 0.00 - 0.04 x10(3)/[facility] LABORATORY Specimen Anatomical Collection Method Collection Time Receive d Time (Source) Location / / Volume Laterality Blood 02/03/2022 4:55 AM 5:09 EDT AM EDT Resulting Agency Comment Spec In Lab Dimas Hernandez MD HEMATOLOGY ORDERABLES Performing Organization Address City/State/ZIP [place] [address] (ABNORMAL) Hemogram (02/03/2022 4:55 AM EDT) athologist Signature WBC 30.8 4.0 - 9.5 [facility] (Critical) x10(3)/[facility] LABORATORY Comment: This result has been called to HALLEY HO by Maureen Dixon on 02 03 2022 at 0555, and has been read back. RBC 1.72 (L) 4.58 - 5.54 x10(6)/[facility] LABORATORY Hemoglobin 5.6 (Critical) 13.7 - 16.5 g/dL [facility] Comment: This result has been called to HALLEY HO by Maureen Dixon on 02 03 2022 at 0555, and has been read back. Hematocrit 15.9 (L) 40.5 - 48.5 % [facility] MCV 92.4 82.9 - 93.1 fL [facility] MCH 32.6 (H) 27.5 - 32.1 pg [facility] MCHC 35.2 32.0 - 35.7 g/dL [facility] LAB[facility]ORY Platelets 310 145 - 357 x10(3)/[facility] LABORATORY RDWSD 45.4 (H) 36.0 - 45.0 fL [facility] RDWCV 14.2 (H) 11.4 - 13.8 % [facility] MPV 10.2 7.6 - 12.9 fL [facility] nRBC % Auto 0.0 % [facility] nRBC Abs Auto 0.000 0.000 - 0.000 x10(3)/mcL [facility] LABORATORY Specimen Anatomical Collection Method Collection Time Receive d Time (Source) Location / / Volume Laterality Blood 02/03/2022 4:55 AM 5:09 EDT AM EDT Resulting Agency Comment Spec In Lab Dimas Hernandez MD HEMATOLOGY ORDERABLES Performing Organization Address City/State/ZIP [place] [address] (ABNORMAL) Basic Metabolic Panel (non-fasting) (02/03/2022 4:55 AM EDT) athologist Signature Glucose Lvl 117 65 - 199 [facility] mg/dL [facility] Comment: Diabetes: >=200 mg/dL plus symp toms BUN 53 (H) 10 - 20 mg/dL [facility] Creatinine 4.40 (H) 0.80 - 1.50 mg/dL [facility] Sodium 123 (L) 135 - 145 mmol/L [facility] Potassium 5.2 (H) 3.5 - 5.0 mmol/L [facility] Comment: Please note: ??Patients with WBC >100,00 0 may have falsely elevated Potassium levels. ??For accurate Potassium quantif ication in these patients send serum separator tube (gold top) for subsequent determinations. ??Contact the Clinical Chemistry Laboratory if there are any qu estions. Chloride 93 (L) 98 - 107 mmol/L [facility] CO2 22 22 - 31 mmol/L [facility] Anion Gap 8 5 - 15 mmol/L [facility] Calcium 6.3 (Critical) 8.5 - 10.5 mg/dL [facility] Comment: Called by: , Read back by: Kerwin George, Date/Time:02/03/22 05:46. Estimated GFR 18 (L) >=60 mL/min/1.73 m?? [facility] Comment: This patient's estimated GFR [...] Han DO CHEMISTRY ORDERABLES Performing Organization Address City/[facility]/ZIP Code Phon e Number [address] (ABNORMAL) Phosphorus (02/03/2022 4:55 AM EDT) P athologist Signature Phosphorus 6.4 (H) 2.5 - 4.5 [facility] mg/dL [facility] Specimen Anatomical Collection Method Collection Time Receive d Time (Source) Location / / Volume Laterality Blood 02/03/2022 4:55 AM 2 5:09 EDT AM EDT Resulting Agency Comment Spec In Lab Gela Novak MD CHEMISTRY ORDERABLES Performing Organization Address City/[facility]/[place] [address] Magnesium (02/03/2022 4:55 AM EDT) P athologist Signature Magnesium 0.84 0.69 - 1.07 [facility] mmol/L [facility] Specimen Anatomical Collection Method Collection Time Receive d Time (Source) Location / / Volume Laterality Blood 02/03/2022 4:55 AM 2 5:09 EDT AM EDT Resulting Agency Comment Spec In Lab Gela Novak MD CHEMISTRY ORDERABLES Performing Organization Address City/[facility]/[place] [address] Vitamin B12 (02/03/2022 4:55 AM EDT) athologist Signature Vitamin B-12 535 232 - 1,245 [facility] pg/mL [facility] Specimen Anatomical Collection Method Collection Time Receive d Time (Source) Location / / Volume Laterality Blood 02/03/2022 4:55 AM 2 5:09 EDT AM EDT Resulting Agency Comment Spec In Lab Erika Retana MD CHEMISTRY ORDERABLES Performing Organization Address City/State/[place] [address] (ABNORMAL) Folate, serum (02/03/2022 4:55 AM EDT) athologist Signature Folate Lvl 3.9 (L) 4.8 - 24.2 [facility] ng/mL [facility] Specimen Anatomical Collection Method Collection Time Receive d Time (Source) Location / / Volume Laterality Blood 02/03/2022 4:55 AM 2 5:09 EDT AM EDT Resulting Agency Comment Spec In Lab Erika Retana MD CHEMISTRY ORDERABLES Performing Organization Address City/[facility]/[place] [address] POCT Glucose (02/02/2022 4:08 PM EDT) athologist Signature POC Glucose 135 65 - 199 [facility] mg/dL [facility] Comment: Supplemental ranges: <140 mg/dL before meals <180 mg/dL all other times of the day Specimen Anatomical Collection Method Collection Time Receive d Time (Source) Location / / Volume Laterality Blood 02/02/2022 4:08 PM 2 4:08 EDT PM EDT Evangelina Flynn MD POINT OF CARE TEST ORDERABLE S Performing Organization Address City/State/[place] [address] (ABNORMAL) Hemogram (02/02/2022 12:40 PM EDT) athologist Signature WBC 33.6 4.0 - 9.5 [facility] (Critical) x10(3)/[facility] Comment: This result has been called to BHARAT MOREL CIA by Galdino Bynum on 02 02 2022 at 1255, and has been read back. RBC 2.29 (L) 4.58 - 5.54 x10(6)/[facility] LABORATORY Hemoglobin 7.4 (L) 13.7 - 16.5 g/dL [facility] Hematocrit 20.9 (L) 40.5 - 48.5 % [facility] MCV 91.3 82.9 - 93.1 [facility] LABORATORY MCH 32.3 (H) 27.5 - 32.1 pg [facility] MCHC 35.4 32.0 - 35.7 g/dL [facility] Platelets 278 145 - 357 x10(3)/[facility] LABORATORY RDWSD 44.7 36.0 - 45.0 [facility] LABORATORY RDWCV 13.9 (H) 11.4 - 13.8 % [facility]ORY MPV 10.2 7.6 - 12.9 [facility] LABORATORY nRBC % Auto 0.0 % [facility] nRBC Abs Auto 0.000 0.000 - 0.000 x10(3)/[facility] LABORATORY Specimen Anatomical Collection Method Collection Time Receive d Time (Source) Location / / Volume Laterality Blood 02/02/2022 12:40 02/02/2022 PM EDT 12:47 PM EDT Resulting Agency Comment Spec In Lab Beck Sanz MD HEMATOLOGY ORDERABLES Performing Organization Address City/State/ZIP [place] [address] POCT Glucose (02/02/2022 7:57 AM EDT) athologist Signature POC Glucose 113 65 - 199 [facility] mg/dL [facility] Comment: Supplemental ranges: <140 mg/dL before meals <180 mg/dL all other times of the day Specimen Anatomical Collection Method Collection Time Receive d Time (Source) Location / / Volume Laterality Blood 02/02/2022 7:57 AM 7:57 EDT AM EDT Evangelina Flynn MD POINT OF CARE TEST ORDERABLE S Performing Organization Address City/[facility]/ZIP Code Phon e Number [address] (ABNORMAL) Iron and TIBC (02/02/2022 2:29 AM EDT) Analysis Performed At Patho logist Time Signature Iron 41 (L) 45 - 160 [facility] mcg/dL [facility] TIBC 149 (L) 250 - 450 [facility] mcg/dL [facility] Iron Saturation 28 20 - 50 % [facility] Specimen Anatomical Collection Method Collection Time Receive d Time (Source) Location / / Volume Laterality Blood Venous Draw / 02/02/2022 2:29 AM 02/03/20 22 2:34 Unknown EDT AM EDT Resulting Agency Comment Spec In Lab Vidhya Peñaloza MD CHEMISTRY ORDERABLES Performing Organization Address City/State/ZIP Code Phon e Number [address] (ABNORMAL) Differential, Automated (02/02/2022 2:29 AM EDT) Patholo gist Method Time Signature Neutrophils % 69.5 % [facility] Neutr Abs (ANC) 21.20 (H) 1.70 - [facility] 6.10 [facility] x10(3)/[facility] L LABORATORY Lymphocytes % 11.0 % [facility] Lymphocytes Abs 3.3 (H) 0.9 - 3.2 [facility] x10(3)/[facility] LABORATORY Monocytes % 8.4 % [facility] Monocyte Abs 2.6 (H) 0.3 - 0.9 [facility] x10(3)/[facility] LABORATORY Eosinophils % 1.6 % [facility] Eosinophils Abs 0.5 (H) 0.0 - 0.4 [facility] x10(3)/[facility] LABORATORY Basophils % 0.5 % [facility] Basophils Abs 0.1 0.0 - 0.1 [facility] x10(3)/[facility] LABORATORY Immature Gran % 9.00 % [facility] Comment: Immature granulocytes(IG's)percentage an d absolute count will include metamyelocytes, myelocytes, and promyelo cytes. Blood smears from CBCs yielding IG's will be scanned manually for concor dance. If this scan disagrees with the automated IG or if promyelocytes are not ed, a manual differential will be performed. Gemini Gran Abs 2.75 (H) 0.00 - 0.04 x10(3)/[facility] LABORATORY Specimen Anatomical Collection Method Collection Time Receive d Time (Source) Location / / Volume Laterality Blood 02/02/2022 2:29 AM 2 2:33 EDT AM EDT Resulting Agency Comment Spec In Lab Dimas Hernandez MD HEMATOLOGY ORDERABLES Performing Organization Address City/State/ZIP [place] [address] (ABNORMAL) Hemogram (02/02/2022 2:29 AM EDT) P athologist Signature WBC 30.5 4.0 - 9.5 [facility] (Critical) x10(3)/[facility] LABORATORY Comment: This result has been called to CARLOS TUBBS by GAMA THOMPSON on 02 02 2022 at 0245, and has been read back. RBC 2.18 (L) 4.58 - 5.54 x10(6)/[facility] LABORATORY Hemoglobin 7.0 (L) 13.7 - 16.5 g/dL [facility] Hematocrit 20.6 (L) 40.5 - 48.5 % [facility] MCV 94.5 (H) 82.9 - 93.1 fL [facility] MCH 32.1 27.5 - 32.1 pg [facility] MCHC 34.0 32.0 - 35.7 g/dL [facility]ORATORY Platelets 245 145 - 357 x10(3)/[facility] LABORATORY RDWSD 46.5 (H) 36.0 - 45.0 fL [facility] RDWCV 13.7 11.4 - 13.8 % [facility] MPV 10.3 7.6 - 12.9 fL [facility] nRBC % Auto 0.0 % [facility] nRBC Abs Auto 0.000 0.000 - 0.000 x10(3)/[facility] LABORATORY Specimen Anatomical Collection Method Collection Time Receive d Time (Source) Location / / Volume Laterality Blood 02/02/2022 2:29 AM 2 2:33 EDT AM EDT Resulting Agency Comment Spec In Lab Dimas Hernandez MD HEMATOLOGY ORDERABLES Performing Organization Address City/State/ZIP [place] [address] (ABNORMAL) Basic Metabolic Panel (non-fasting) (02/02/2022 2:29 AM EDT) athologist Signature Glucose Lvl 107 65 - 199 [facility] mg/dL [facility] Comment: Diabetes: >=200 mg/dL plus symp toms BUN 63 (H) 10 - 20 mg/dL [facility] Creatinine 4.78 (H) 0.80 - 1.50 mg/dL [facility] Sodium 127 (L) 135 - 145 mmol/L [facility] Potassium 5.2 (H) 3.5 - 5.0 mmol/L [facility] Comment: Please note: ??Patients with WBC >100,00 0 may have falsely elevated Potassium levels. ??For accurate Potassium quantif ication in these patients send serum separator tube (gold top) for subsequent determinations. ??Contact the Clinical Chemistry Laboratory if there are any qu estions. Chloride 97 (L) 98 - 107 mmol/L [facility] CO2 20 (L) 22 - 31 mmol/L [facility] Anion Gap 10 5 - 15 mmol/L [facility] Calcium 6.8 (Critical) 8.5 - 10.5 mg/dL [facility] Comment: Called by: kvng, Read back by: ashley george, Date/Time:02/02/22 03:11. Estimated GFR 16 (L) >=60 mL/min/1.73 m?? [facility] Comment: This patient's estimated GFR [...] (Source) Location / / Volume Laterality Blood 02/02/2022 2:29 AM 2 2:33 EDT AM EDT Resulting Agency Comment Spec In Lab Dunia Han DO CHEMISTRY ORDERABLES Performing Organization Address City/State/Z[place] [address] (ABNORMAL) Phosphorus (02/02/2022 2:29 AM EDT) P athologist Signature Phosphorus 5.7 (H) 2.5 - 4.5 [facility] mg/dL [facility] Specimen Anatomical Collection Method Collection Time Receive d Time (Source) Location / / Volume Laterality Blood 02/02/2022 2:29 AM 2 2:33 EDT AM EDT Resulting Agency Comment Spec In Lab Gela Novak MD CHEMISTRY ORDERABLES Performing Organization Address City/State/ZIP Code Phon e Number [address] Magnesium (02/02/2022 2:29 AM EDT) athologist Signature Magnesium 0.95 0.69 - 1.07 [facility] mmol/L [facility] Specimen Anatomical Collection Method Collection Time Receive d Time (Source) Location / / Volume Laterality Blood 02/02/2022 2:29 AM 2 2:33 EDT AM EDT Resulting Agency Comment Spec In Lab Gela Novak MD CHEMISTRY ORDERABLES Performing Organization Address City/State/ZIP Code Phon e Number [address] (ABNORMAL) Hemogram (02/01/2022 6:15 PM EDT) athologist Signature WBC 30.4 4.0 - 9.5 [facility] (Critical) x10(3)/[facility] LABORATORY Comment: This result has been called to FOREST HUFFMAN by Pretty Luna on 02 01 2022 at 1911, and has been read back. RBC 2.33 (L) 4.58 - 5.54 x10(6)/[facility] LABORATORY Hemoglobin 7.7 (L) 13.7 - 16.5 g/dL [facility] Hematocrit 21.9 (L) 40.5 - 48.5 % [facility] MCV 94.0 (H) 82.9 - 93.1 fL [facility] MCH 33.0 (H) 27.5 - 32.1 pg [facility] MCHC 35.2 32.0 - 35.7 g/dL [facility] LABORATORY Platelets 220 145 - 357 x10(3)/[facility] LABORATORY RDWSD 44.9 36.0 - 45.0 [facility] LABORATORY RDWCV 13.3 11.4 - 13.8 % [facility]ORATORY MPV 10.8 7.6 - 12.9 [facility] LABORATORY nRBC % Auto 0.0 % [facility] nRBC Abs Auto 0.000 0.000 - 0.000 x10(3)/mcL M [facility] LABORATORY Specimen Anatomical Collection Method Collection Time Receive d Time (Source) Location / / Volume Laterality Blood 02/01/2022 6:15 PM 2 6:29 EDT PM EDT Resulting Agency Comment Spec In Lab Jorge L Singletaryault [employer]PER HEMATOLOGY ORDERABLES Performing Organization Address City/State/ZIP [place] [address] (ABNORMAL) Basic Metabolic Panel (non-fasting) (02/01/2022 6:15 PM EDT) athologist Signature Glucose Lvl 121 65 - 199 [facility] mg/dL [facility] Comment: Diabetes: >=200 mg/dL plus symp toms BUN 56 (H) 10 - 20 mg/dL [facility] Creatinine 4.21 (H) 0.80 - 1.50 mg/dL [facility] Sodium 127 (L) 135 - 145 mmol/L [facility] Potassium 5.1 (H) 3.5 - 5.0 mmol/L [facility] [facility] Comment: Please note: ??Patients with WBC >100,00 0 may have falsely elevated Potassium levels. ??For accurate Potassium quantif ication in these patients send serum separator tube (gold top) for subsequent determinations. ??Contact the Clinical Chemistry Laboratory if there are any qu estions. Chloride 96 (L) 98 - 107 mmol/L [facility] CO2 21 (L) 22 - 31 mmol/L [facility] Anion Gap 10 5 - 15 mmol/L [facility] Calcium 7.2 (L) 8.5 - 10.5 mg/dL [facility] Estimated GFR 19 (L) >=60 mL/min/1.73 m?? [facility] Comment: This patient's estimated GFR [...] (Source) Location / / Volume Laterality Blood 02/01/2022 6:15 PM 2 6:29 EDT PM EDT Resulting Agency Comment Spec In Lab Jorge L Ernst APRN CHEMISTRY ORDERABLES Performing Organization Address City/[facility]/[place] [address] Transfuse RBC (02/01/2022 5:16 PM EDT) Jorge L Ernst APRN NURSING TREATMENT ORDERABLES - BLOOD ADMIN Transfuse RBC (02/01/2022 5:16 PM EDT) Jorge L Ernst APRN NURSING TREATMENT ORDERABLES - BLOOD ADMIN (ABNORMAL) C. Difficile Screen (02/01/2022 1:55 PM EDT) [facility] Method Time Signature C Diff Screen Positive (A) Negative [facility] Comment: PCR Pos C. [...] / Volume Laterality Stool 02/01/2022 1:55 PM 2 2:53 EDT PM EDT Resulting Agency Comment Spec In Lab Jorge L Ernst APRN MICROBIOLOGY - GENERAL ORDER JT Performing Organization Address City/[facility]/[place] [address] Type and Screen Validity (02/01/2022 12:45 PM EDT) [facility] Method Time Signature T&S only valid [facility] JOSH G[facility] at [facility] Comment: This Type and Screen result is only valid at the [facility] Specimen Anatomical Collection Method Collection Time Receive d Time (Source) Location / / Volume Laterality Blood 02/01/2022 12:45 02/01/2022 PM EDT 12:46 PM EDT Resulting Agency Comment Spec In Lab Jorge L Hua Klever AVENDAÑO BLOOD BANK ORDERABLES Performing Organization Address City/[facility]/ZIP Code Phon e Number [address] ABORH Recheck Status (02/01/2022 12:45 PM EDT) [facility] Signature ABORH Type Completed [facility] LABORATORY Specimen Anatomical Collection Method Collection Time Receive d Time (Source) Location / / Volume Laterality Blood 02/01/2022 12:45 02/01/2022 PM EDT 12:46 PM EDT Resulting Agency Comment Spec In Lab Jorge L Ernst APRN BLOOD BANK ORDERABLES Performing Organization Address City/[facility]/[place] [address] Antibody screen (02/01/2022 12:45 PM EDT) [facility] Signature Ab Screen Negative [facility] LABORATORY Expires at 02/04/2022 JOSH GILMORE [id number] on: [facility] Specimen Anatomical Collection Method Collection Time Receive d Time (Source) Location / / Volume Laterality Blood 02/01/2022 12:45 02/01/2022 PM EDT 12:46 PM EDT Resulting Agency Comment Spec In Lab Jorge L Jacobsonreault LEVELER HELPER BLOOD BANK ORDERABLES Performing Organization Address City/State/[place] [address] ABO/Rh Typing (02/01/2022 12:45 PM EDT) P athologist Signature ABORh Type A Pos [facility] Specimen Anatomical Collection Method Collection Time Receive d Time (Source) Location / / Volume Laterality Blood 02/01/2022 12:45 02/01/2022 PM EDT 12:46 PM EDT Resulting Agency Comment Spec In Lab Jorge L Jacobsonreault LEVELER HELPER BLOOD BANK ORDERABLES Performing Organization Address [facility]/[place] [facility] [place] [address] Prepare RBC (02/01/2022 12:05 PM EDT) athologist Signature Dispensed? Yes [facility] Specimen Anatomical Collection Method Collection Time Receive d Time (Source) Location / / Volume Laterality Blood 02/01/2022 12:05 02/01/2022 PM EDT 12:15 PM EDT Jorge L Singletaryault LEVELER HELPER BLOOD BANK ORDERABLES Performing Organization Address City/[facility]/[place] [address] (ABNORMAL) Basic Metabolic Panel (non-fasting) (02/01/2022 11:42 AM EDT) athologist Signature Glucose Lvl 106 65 - 199 [facility] mg/dL [facility] Comment: Diabetes: >=200 mg/dL plus symp toms BUN 49 (H) 10 - 20 mg/dL [facility] Creatinine 3.84 (H) 0.80 - 1.50 mg/dL [facility] Sodium 129 (L) 135 - 145 mmol/L [facility] Potassium 5.1 (H) 3.5 - 5.0 mmol/L [facility] Comment: Please note: ??Patients with WBC >100,00 0 may have falsely elevated Potassium levels. ??For accurate Potassium quantif ication in these patients send serum separator tube (gold top) for subsequent determinations. ??Contact the Clinical Chemistry Laboratory if there are any qu estions. Chloride 98 98 - 107 mmol/L [facility] CO2 21 (L) 22 - 31 mmol/L [facility] Anion Gap 10 5 - 15 mmol/L [facility] Calcium 7.6 (L) 8.5 - 10.5 mg/dL [facility] Estimated GFR 21 (L) >=60 mL/min/1.73 m?? [facility] Comment: This patient's estimated GFR [...] (Source) Location / / Volume Laterality Blood 02/01/2022 11:42 02/01/2022 AM EDT 11:46 AM EDT Resulting Agency Comment Spec In Lab Jorge L Ernst APRN CHEMISTRY ORDERABLES Performing Organization Address City/State/ZIP Code Phon e Number [place] [id number] (ABNORMAL) Hemogram (02/01/2022 11:42 AM EDT) P athologist Signature WBC 36.0 4.0 - 9.5 [facility] (Critical) x10(3)/[facility] LABORATORY Comment: This result has been called to DONTA SY by MARCIA KIMBALL on 02 01 2022 at 1154, and has been read back. RBC 1.98 (L) 4.58 - 5.54 x10(6)/[facility] LABORATORY Hemoglobin 6.4 (L) 13.7 - 16.5 g/dL [facility] Hematocrit 18.5 (L) 40.5 - 48.5 % [facility] MCV 93.4 (H) 82.9 - 93.1 fL [facility] MCH 32.3 (H) 27.5 - 32.1 pg [facility] MCHC 34.6 32.0 - 35.7 g/dL [facility] Platelets 239 145 - 357 x10(3)/[facility] LABORATORY RDWSD 45.0 36.0 - 45.0 fL [facility] RDWCV 13.7 11.4 - 13.8 % [facility] MPV 10.6 7.6 - 12.9 fL [facility] nRBC % Auto 0.0 % [facility] nRBC Abs Auto 0.000 0.000 - 0.000 x10(3)/[facility] LABORATORY Specimen Anatomical Collection Method Collection Time Receive d Time (Source) Location / / Volume Laterality Blood 02/01/2022 11:42 02/01/2022 AM EDT 11:46 AM EDT Resulting Agency Comment Spec In Lab Beck Sanz MD HEMATOLOGY ORDERABLES Performing Organization Address City/State/ZIP Code Phon e Number [address] POCT Glucose (02/01/2022 10:42 AM EDT) P athologist Signature POC Glucose 119 65 - 199 [facility] mg/dL [facility] Comment: Supplemental ranges: <140 mg/dL before meals <180 mg/dL all other times of the day Specimen Anatomical Collection Method Collection Time Receive d Time (Source) Location / / Volume Laterality Blood 02/01/2022 10:42 02/01/2022 AM EDT 10:42 AM EDT Beck Sanz MD POINT OF CARE TEST ORDERABLE S Performing Organization Address City/State/ZIP Code Phon e Number [address] Blood culture (02/01/2022 6:35 AM EDT) Patholo gist Method Time Signature Blood Culture No growth [facility] [place] at 5 days. [facility] Specimen Anatomical Collection Method Collection Time Receive d Time (Source) Location / / Volume Laterality Blood 02/01/2022 6:35 AM 2 9:38 EDT AM EDT Resulting Agency Comment Spec In Lab Beck Sanz MD MICROBIOLOGY - BLOOD ORDERAB LES Performing Organization Address City/[facility]/[place] [address] Blood culture (02/01/2022 6:25 AM EDT) Patholo gist Method Time Signature Blood Culture No growth JOSH GILMORE at 5 days. [facility] Specimen (Source) Anatomical Collection Method Collection Time Re ceived Time Location / / Volume Laterality Blood Pediatric 02/01/2022 6:25 2 9:38 AM EDT AM EDT Resulting Agency Comment Spec In Lab Beck Sanz MD MICROBIOLOGY - BLOOD ORDERAB LES Performing Organization Address [facility] [place] [address] (ABNORMAL) Calcium Ionized Whole Blood, HONORIO (02/01/2022 4:00 AM EDT) Analysis Performed At Patho logist Time Signature pH Honorio 7.43 (H) 7.32 - [facility] 7.42 [facility] ICa Whole 1.13 (L) 1.15 - [facility] Blood 1.33 [facility] mmol/L [facility] Comment: Note: ??Total bilirubin higher than 20 m g/dL may lead to falsely low ionized calcium. Specimen Anatomical Collection Method Collection Time Receive d Time (Source) Location / / Volume Laterality Blood ARTERIAL LINE / 02/01/2022 4:00 AM 2021 4:11 Unknown EDT AM EDT Resulting Agency Comment Spec In Lab Erika Retana MD CHEMISTRY ORDERABLES Performing Organization Address City/[facility]/[place]IP [facility] [place] [address] (ABNORMAL) Hemogram (02/01/2022 4:00 AM EDT) P athologist Signature WBC 43.9 4.0 - 9.5 [facility] (Critical) x10(3)/[facility] LABORATORY Comment: This result has been called to GEENA AMBRIZ by Nicki Bazzi on 02 01 2022 at 0446, and has been read back. RBC 2.20 (L) 4.58 - 5.54 x10(6)/[facility] LABORATORY Hemoglobin 7.1 (L) 13.7 - 16.5 g/dL [facility] Hematocrit 20.3 (L) 40.5 - 48.5 % [facility] MCV 92.3 82.9 - 93.1 fL [facility] MCH 32.3 (H) 27.5 - 32.1 pg [facility] MCHC 35.0 32.0 - 35.7 g/dL [facility] Platelets 264 145 - 357 x10(3)/[facility] LABORATORY RDWSD 43.8 36.0 - 45.0 [facility] LABORATORY RDWCV 13.2 11.4 - 13.8 % [facility] MPV 10.7 7.6 - 12.9 fL [facility] nRBC % Auto 0.0 % [facility] nRBC Abs Auto 0.000 0.000 - 0.000 x10(3)/[facility] LABORATORY Specimen Anatomical Collection Method Collection Time Receive d Time (Source) Location / / Volume Laterality Blood 02/01/2022 4:00 AM 4:11 EDT AM EDT Resulting Agency Comment Spec In Lab Beck Sanz MD HEMATOLOGY ORDERABLES Performing Organization Address City/State/Z[place] [address] (ABNORMAL) Differential, Automated (02/01/2022 1:02 AM EDT) [facility] Method Time Signature Neutrophils % 73.9 % [facility] Neutr Abs (ANC) 30.91 (H) 1.70 - [facility] 6.10 [facility] x10(3)/[facility] LABORATORY Lymphocytes % 7.5 % [facility] Lymphocytes Abs 3.1 0.9 - 3.2 [facility] x10(3)/[facility] LABORATORY Monocytes % 7.7 % [facility] Monocyte Abs 3.2 (H) 0.3 - 0.9 [facility] x10(3)/[facility] LABORATORY Eosinophils % 0.5 % [facility] Eosinophils Abs 0.2 0.0 - 0.4 [facility] x10(3)/[facility] LABORATORY Basophils % 0.4 % [facility] Basophils Abs 0.2 (H) 0.0 - 0.1 [facility] x10(3)/[facility] LABORATORY Immature Gran % 10.00 % [facility] Comment: Immature granulocytes(IG's)percentage an d absolute count will include metamyelocytes, myelocytes, and promyelo cytes. Blood smears from CBCs yielding IG's will be scanned manually for concor dance. If this scan disagrees with the automated IG or if promyelocytes are not ed, a manual differential will be performed. Gemini Gran Abs 4.18 (H) 0.00 - 0.04 x10(3)/[facility] LABORATORY Specimen Anatomical Collection Method Collection Time Receive d Time (Source) Location / / Volume Laterality Blood 02/01/2022 1:02 AM 1:13 EDT AM EDT Resulting Agency Comment Spec In Lab iDmas Hernandez MD HEMATOLOGY ORDERABLES Performing Organization Address City/State/Z[place] [address] (ABNORMAL) Hemogram (02/01/2022 1:02 AM EDT) P athologist Signature WBC 41.8 4.0 - 9.5 [facility] (Critical) x10(3)/[facility] LABORATORY Comment: This result has been called to PEPE SORENSON by Nicki Bazzi on 02 01 2022 at 0132, and has been read back. RBC 2.23 (L) 4.58 - 5.54 x10(6)/[facility] LABORATORY Hemoglobin 7.2 (L) 13.7 - 16.5 g/dL [facility] Hematocrit 20.6 (L) 40.5 - 48.5 % [facility] MCV 92.4 82.9 - 93.1 [facility] LABORATORY MCH 32.3 (H) 27.5 - 32.1 pg [facility] MCHC 35.0 32.0 - 35.7 g/dL [facility] LABORATORY Platelets 252 145 - 357 x10(3)/[facility] LABORATORY RDWSD 43.6 36.0 - 45.0 [facility] LABORATORY RDWCV 13.3 11.4 - 13.8 % [facility] LABORATORY MPV 10.8 7.6 - 12.9 [facility] LABORATORY nRBC % Auto 0.0 % [facility] nRBC Abs Auto 0.000 0.000 - 0.000 x10(3)/[facility] LABORATORY Specimen Anatomical Collection Method Collection Time Receive d Time (Source) Location / / Volume Laterality Blood 02/01/2022 1:02 AM 2 1:13 EDT AM EDT Resulting Agency Comment Spec In Lab Dimas Hernandez MD HEMATOLOGY ORDERABLES Performing Organization Address City/State/Z[place] [address] (ABNORMAL) Calcium Ionized Whole Blood, HONORIO (02/01/2022 1:02 AM EDT) Analysis Performed At Patho logist Time Signature pH Honorio 7.42 7.32 - [facility] 7.42 [facility] ICa Whole 1.09 (L) 1.15 - [facility] Blood 1.33 [facility] mmol/L [facility]ORY Comment: Note: ??Total bilirubin higher than 20 m g/dL may lead to falsely low ionized calcium. Specimen Anatomical Collection Method Collection Time Receive d Time (Source) Location / / Volume Laterality Blood ARTERIAL LINE / 02/01/2022 1:02 AM 2021 1:13 Unknown EDT AM EDT Resulting Agency Comment Spec In Lab Erika Retana MD CHEMISTRY ORDERABLES Performing Organization Address City/State/Z[place] [address] (ABNORMAL) Basic Metabolic Panel (non-fasting) (02/01/2022 1:02 AM EDT) athologist Signature Glucose Lvl 125 65 - 199 [facility] mg/dL [facility] Comment: Diabetes: >=200 mg/dL plus symp toms BUN 50 (H) 10 - 20 mg/dL [facility] Creatinine 3.91 (H) 0.80 - 1.50 mg/dL [facility] Sodium 127 (L) 135 - 145 mmol/L [facility] Potassium 5.2 (H) 3.5 - 5.0 mmol/L [facility] Comment: Please note: ??Patients with WBC >100,00 0 may have falsely elevated Potassium levels. ??For accurate Potassium quantif ication in these patients send serum separator tube (gold top) for subsequent determinations. ??Contact the Clinical Chemistry Laboratory if there are any qu estions. Chloride 97 (L) 98 - 107 mmol/L [facility] CO2 21 (L) 22 - 31 mmol/L [facility] Anion Gap 9 5 - 15 mmol/L [facility] Calcium 7.6 (L) 8.5 - 10.5 mg/dL [facility]ORY Estimated GFR 20 (L) >=60 mL/min/1.73 m?? [facility] Comment: This patient's estimated GFR [...] (Source) Location / / Volume Laterality Blood 02/01/2022 1:02 AM 2 1:13 EDT AM EDT Resulting Agency Comment Spec In Lab Dunia Han DO CHEMISTRY ORDERABLES Performing Organization Address City/State/[place] [address] (ABNORMAL) Phosphorus (02/01/2022 1:02 AM EDT) P athologist Signature Phosphorus 4.9 (H) 2.5 - 4.5 [facility] mg/dL [facility] Specimen Anatomical Collection Method Collection Time Receive d Time (Source) Location / / Volume Laterality Blood 02/01/2022 1:02 AM 2 1:13 EDT AM EDT Resulting Agency Comment Spec In Lab Gela Novak MD CHEMISTRY ORDERABLES Performing Organization Address City/[facility]/[place] [address] Magnesium (02/01/2022 1:02 AM EDT) P athologist Signature Magnesium 0.94 0.69 - 1.07 [facility] mmol/L [facility] Specimen Anatomical Collection Method Collection Time Receive d Time (Source) Location / / Volume Laterality Blood 02/01/2022 1:02 AM 2 1:13 EDT AM EDT Resulting Agency Comment Spec In Lab Gela Novak MD CHEMISTRY ORDERABLES Performing Organization Address City/[facility]/[place] [address] (ABNORMAL) Calcium Ionized Whole Blood, HONORIO (01/31/2022 10:30 PM EDT) Analysis Performed At Patho logist Time Signature pH Honorio 7.40 7.32 - [facility] 7.42 [facility] ICa Whole 1.02 (L) 1.15 - [facility] Blood 1.33 [facility] mmol/L [facility] Comment: Note: ??Total bilirubin higher than 20 m g/dL may lead to falsely low ionized calcium. Specimen Anatomical Collection Method Collection Time Receive d Time (Source) Location / / Volume Laterality Blood ARTERIAL LINE / 01/31/2022 10:30 02/01/20 22 Unknown PM EDT 10:36 PM EDT Resulting Agency Comment Spec In Lab Erika Retana MD CHEMISTRY ORDERABLES Performing Organization Address City/[facility] [place] [address] POCT Glucose (01/31/2022 7:39 PM EDT) P athologist Signature POC Glucose 150 65 - 199 [facility] mg/dL [facility] Comment: Supplemental ranges: <140 mg/dL before meals <180 mg/dL all other times of the day Specimen Anatomical Collection Method Collection Time Receive d Time (Source) Location / / Volume Laterality Blood 01/31/2022 7:39 PM 7:39 EDT PM EDT Beck Sanz MD POINT OF CARE TEST ORDERABLE S Performing Organization Address [facility] [place] [address] (ABNORMAL) Calcium Ionized Whole Blood, HONORIO (01/31/2022 7:36 PM EDT) Analysis Performed At Patho logist Time Signature pH Honorio 7.44 (H) 7.32 - [facility] 7.42 [facility] ICa Whole 0.98 (L) 1.15 - [facility] Blood 1.33 [facility] mmol/L HOSPITAL LABORATORY Comment: Note: ??Total bilirubin higher than 20 m g/dL may lead to falsely low ionized calcium. Specimen Anatomical Collection Method Collection Time Receive d Time (Source) Location / / Volume Laterality Blood ARTERIAL LINE / 01/31/2022 7:36 PM 2021 7:40 Unknown EDT PM EDT Resulting Agency Comment Spec In Lab Erika Retana MD CHEMISTRY ORDERABLES Performing Organization Address [facility] [place] [address] (ABNORMAL) Electrolytes panel (01/31/2022 4:54 PM EDT) [facility] Sodium 126 (L) 135 - 145 [facility] mmol/L [facility] Potassium 5.9 (H) 3.5 - 5.0 [facility] mmol/L [facility] Comment: Please note: ??Patients with WBC >100,00 0 may have falsely elevated Potassium levels. ??For accurate Potassium quantif ication in these patients send serum separator tube (gold top) for subsequent determinations. ??Contact the Clinical Chemistry Laboratory if there are any qu estions. Chloride 95 (L) 98 - 107 mmol/L [facility] CO2 20 (L) 22 - 31 mmol/L [facility] Anion Gap 11 5 - 15 mmol/L [facility] Specimen Anatomical Collection Method Collection Time Receive d Time (Source) Location / / Volume Laterality Blood 01/31/2022 4:54 PM 5:07 EDT PM EDT Resulting Agency Comment Spec In Lab Agnieszka López APRN CHEMISTRY ORDERABLES Performing Organization Address City/State/ZIP Code Phon e Number [address] POCT Glucose (01/31/2022 10:03 AM EDT) [facility] POC Glucose 108 65 - 199 [facility] mg/dL [facility] Comment: Supplemental ranges: <140 mg/dL before meals <180 mg/dL all other times of the day Specimen Anatomical Collection Method Collection Time Receive d Time (Source) Location / / Volume Laterality Blood 01/31/2022 10:03 01/31/2022 AM EDT 10:03 AM EDT Beck Sanz MD POINT OF CARE TEST ORDERABLE S Performing Organization Address City/State/ZIP Code Phon e Number [address] APTT (01/31/2022 8:05 AM EDT) athologist Signature PTT 36 25 - 37 sec [facility] Comment: The PTT is NOT appropriate for heparin m onitoring. Use the Anti-Xa level for heparin monitoring (HEP UFH) or LMWH mon itoring (HEP LMW). A PTT less than 37 seconds generally indicates adequate hem ostasis. Specimen Anatomical Collection Method Collection Time Receive d Time (Source) Location / / Volume Laterality Blood 01/31/2022 8:05 AM 2 8:15 EDT AM EDT Resulting Agency Comment Spec In Lab Beck Sanz MD HEMATOLOGY ORDERABLES Performing Organization Address City/[facility]/[place] [address] (ABNORMAL) Electrolytes panel (01/31/2022 6:10 AM EDT) athologist Signature Sodium 126 (L) 135 - 145 [facility] mmol/L [facility] Potassium 5.1 (H) 3.5 - 5.0 [facility] mmol/L [facility] Comment: Please note: ??Patients with WBC >100,00 0 may have falsely elevated Potassium levels. ??For accurate Potassium quantif ication in these patients send serum separator tube (gold top) for subsequent determinations. ??Contact the Clinical Chemistry Laboratory if there are any qu estions. Chloride 94 (L) 98 - 107 mmol/L [facility] CO2 22 22 - 31 mmol/L [facility] Anion Gap 10 5 - 15 mmol/L [facility] Specimen Anatomical Collection Method Collection Time Receive d Time (Source) Location / / Volume Laterality Blood 01/31/2022 6:10 AM 2 6:15 EDT AM EDT Resulting Agency Comment Spec In Lab Erika Retana MD CHEMISTRY ORDERABLES Performing Organization Address City/[facility]/[place]IP [place] [address] POCT Glucose (01/31/2022 4:16 AM EDT) athologist Signature POC Glucose 94 65 - 199 [facility] mg/dL [facility] Comment: Supplemental ranges: <140 mg/dL before meals <180 mg/dL all other times of the day Specimen Anatomical Collection Method Collection Time Receive d Time (Source) Location / / Volume Laterality Blood 01/31/2022 4:16 AM 4:16 EDT AM EDT Beck Sanz MD POINT OF CARE TEST ORDERABLE S Performing Organization Address City/State/ZIP [place] [address] (ABNORMAL) BLOOD GAS 2 VENOUS (01/31/2022 12:43 AM EDT) Analysis Performed At Patho logist Time Signature pH Honorio 7.44 (H) 7.32 - [facility] 7.42 [facility] pCO2 Honorio 30 (L) 41 - 51 [facility] LABORATORY pO2 Honorio 34 25 - 40 [facility] LABORATORY HCO3 Honorio 20.2 mmol/L [facility] BE Honorio -4.0 mmol/L [facility] Hgb Blood Gas 10.1 (L) 13.7 - [facility] 16.5 g/dL [facility] O2HB Honorio 69.5 % [facility] COHB Honorio 0.1 % [facility] Comment: Nonsmokers: 0.5-1.5% COHB Smokers: Variable, but usually less than 10% Toxic: 20-30% COHB Lethal: Greater than 60% COHB METHB Honorio 0.3 <=1.5 % [facility] Na Whole Blood 120 (L) 135 - 145 mmol/L [facility] K Whole Blood 4.9 3.5 - 5.0 mmol/L [facility] Comment: Please note: Patients with WBC >100,000 may have falsely elevated Potassium levels. Contact the Clinical Chemistry L aboratory if there are any questions. ICa Whole Blood 1.05 (L) 1.15 - 1.33 mmol/L [facility] Comment: Note: ??Total bilirubin higher than 20 m g/dL may lead to falsely low ionized calcium. CL Whole Blood 95 (L) 98 - 107 mmol/L [facility] Gluc Whole Bld 110 65 - 199 mg/dL [facility] Comment: Diabetes: >=200 mg/dL plus symp toms Lactate WB 1.0 0.5 - 2.2 mmol/L [facility] BGas Source Venous [facility] Specimen Anatomical Collection Method Collection Time Receive d Time (Source) Location / / Volume Laterality Blood 01/31/2022 12:43 01/31/2022 AM EDT 12:43 AM EDT Beck Sanz MD CHEMISTRY ORDERABLES Performing Organization Address City/State/Z[place] [address] (ABNORMAL) Differential, Automated (01/31/2022 12:42 AM EDT) [facility] gist Method Time Signature Neutrophils % 65.8 % [facility] Neutr Abs (ANC) 23.59 (H) 1.70 - [facility] 6.10 [facility] x10(3)/[facility] LABORATORY Lymphocytes % 8.0 % [facility] Lymphocytes Abs 2.9 0.9 - 3.2 [facility] x10(3)/[facility] LABORATORY Monocytes % 9.6 % [facility] Monocyte Abs 3.4 (H) 0.3 - 0.9 [facility] x10(3)[facility] LABORATORY Eosinophils % 0.9 % [facility] Eosinophils Abs 0.3 0.0 - 0.4 [facility] x10(3)[facility] LABORATORY Basophils % 0.5 % [facility] Basophils Abs 0.2 (H) 0.0 - 0.1 [facility] x10(3)/[facility] LABORATORY Immature Gran % 15.20 % [facility] Comment: Immature granulocytes(IG's)percentage an d absolute count will include metamyelocytes, myelocytes, and promyelo cytes. Blood smears from CBCs yielding IG's will be scanned manually for concor dance. If this scan disagrees with the automated IG or if promyelocytes are not ed, a manual differential will be performed. Gemini Gran Abs 5.46 (H) 0.00 - 0.04 x10(3)/[facility] LABORATORY Specimen Anatomical Collection Method Collection Time Receive d Time (Source) Location / / Volume Laterality Blood 01/31/2022 12:42 01/31/2022 AM EDT 12:49 AM EDT Resulting Agency Comment Spec In Lab Cristina Hillman LEVELER HELPER HEMATOLOGY ORDERABLES Performing Organization Address City/State/ZIP [place] [address] (ABNORMAL) Hemogram (01/31/2022 12:42 AM EDT) athologist Signature WBC 35.8 4.0 - 9.5 [facility] (Critical) x10(3)/[facility] LABORATORY Comment: This result has been called to PAPITO Boss by Reymundo De Luna on 01 31 2022 at 0103, and has been read back. RBC 2.84 (L) 4.58 - 5.54 x10(6)/[facility] LABORATORY Hemoglobin 9.1 (L) 13.7 - 16.5 g/dL [facility] LABORATORY Hematocrit 25.9 (L) 40.5 - 48.5 % [facility]ORATORY MCV 91.2 82.9 - 93.1 [facility] LABORATORY MCH 32.0 27.5 - 32.1 pg [facility] MCHC 35.1 32.0 - 35.7 g/dL [facility] LABORATORY Platelets 195 145 - 357 x10(3)/[facility] LABORATORY RDWSD 42.7 36.0 - 45.0 [facility] LABORATORY RDWCV 13.2 11.4 - 13.8 % [facility] LABORATORY MPV 10.6 7.6 - 12.9 [facility] LABORATORY nRBC % Auto 0.0 % [facility] nRBC Abs Auto 0.000 0.000 - 0.000 x10(3)/mcL [facility] LABORATORY Specimen Anatomical Collection Method Collection Time Receive d Time (Source) Location / / Volume Laterality Blood 01/31/2022 12:42 01/31/2022 AM EDT 12:49 AM EDT Resulting Agency Comment Spec In Lab Jaquelinashley Sal Hillman APRN HEMATOLOGY ORDERABLES Performing Organization Address City/State/ZIP Code Phon e Number [place] [phone] (ABNORMAL) Creatinine (01/31/2022 12:42 AM EDT) Analysis Performed At Patho logist Time Signature Creatinine 4.01 (H) 0.80 - [facility] 1.50 mg/dL [facility] Estimated GFR 20 (L) >=60 [facility] [place] mL/min/1.7 [facility] 3 ? [facility] LABORATORY Comment: This patient's estimated GFR [...] (Source) Location / / Volume Laterality Blood 01/31/2022 12:42 01/31/2022 AM EDT 12:49 AM EDT Resulting Agency Comment Spec In Lab Beck Sanz MD CHEMISTRY ORDERABLES Performing Organization Address City/State/ZIP Code Phon e Number [place] [phone] (ABNORMAL) BUN (01/31/2022 12:42 AM EDT) P athologist Signature BUN 50 (H) 10 - 20 [facility] mg/dL [facility] Specimen Anatomical Collection Method Collection Time Receive d Time (Source) Location / / Volume Laterality Blood 01/31/2022 12:42 01/31/2022 AM EDT 12:49 AM EDT Resulting Agency Comment Spec In Lab Beck Sanz MD CHEMISTRY ORDERABLES Performing Organization Address City/[facility]/[place] [address] (ABNORMAL) Electrolytes panel (01/31/2022 12:42 AM EDT) P athologist Signature Sodium 123 (L) 135 - 145 [facility] mmol/L [facility] Potassium 5.1 (H) 3.5 - 5.0 [facility] mmol/L [facility] Comment: Please note: ??Patients with WBC >100,00 0 may have falsely elevated Potassium levels. ??For accurate Potassium quantif ication in these patients send serum separator tube (gold top) for subsequent determinations. ??Contact the Clinical Chemistry Laboratory if there are any qu estions. Chloride 94 (L) 98 - 107 mmol/L [facility] CO2 21 (L) 22 - 31 mmol/L [facility] Anion Gap 8 5 - 15 mmol/L [facility] LABORATORY Specimen Anatomical Collection Method Collection Time Receive d Time (Source) Location / / Volume Laterality Blood 01/31/2022 12:42 01/31/2022 AM EDT 12:49 AM EDT Resulting Agency Comment Spec In Lab Erika Retana MD CHEMISTRY ORDERABLES Performing Organization Address City/[facility]/[place] [address] (ABNORMAL) Calcium Ionized Whole Blood, HONORIO (01/30/2022 8:17 PM EDT) Analysis Performed At Patho logist Time Signature pH Honorio 7.42 7.32 - [facility] 7.42 [facility] ICa Whole 0.99 (L) 1.15 - [facility] Blood 1.33 [facility] mmol/L [facility] Comment: Note: ??Total bilirubin higher than 20 m g/dL may lead to falsely low ionized calcium. Specimen Anatomical Collection Method Collection Time Receive d Time (Source) Location / / Volume Laterality Blood ARTERIAL LINE / 01/30/2022 8:17 PM 2021 8:24 Unknown EDT PM EDT Resulting Agency Comment Spec In Lab Erkia Retana MD CHEMISTRY ORDERABLES Performing Organization Address City/[facility]/ZIP Code Phon e Number [address] APTT (01/30/2022 8:17 PM EDT) athologist Signature PTT 30 25 - 37 sec [facility] Comment: The PTT is NOT appropriate for heparin m onitoring. Use the Anti-Xa level for heparin monitoring (HEP UFH) or LMWH mon itoring (HEP LMW). A PTT less than 37 seconds generally indicates adequate hem ostasis. Specimen Anatomical Collection Method Collection Time Receive d Time (Source) Location / / Volume Laterality Blood 01/30/2022 8:17 PM 2 8:24 EDT PM EDT Resulting Agency Comment Spec In Lab Beck Sanz MD HEMATOLOGY ORDERABLES Performing Organization Address City/[facility]/Z[place] [address] POCT Glucose (01/30/2022 8:00 PM EDT) athologist Signature POC Glucose 144 65 - 199 [facility] mg/dL [facility] Comment: Supplemental ranges: <140 mg/dL before meals <180 mg/dL all other times of the day Specimen Anatomical Collection Method Collection Time Receive d Time (Source) Location / / Volume Laterality Blood 01/30/2022 8:00 PM 2 8:00 EDT PM EDT Beck Sanz MD POINT OF CARE TEST ORDERABLE S Performing Organization Address City/[facility]/[place] [address] Chest Abdomen Pelvis [...] follow-up. 2. Diffuse anasarca. 3. Hepatomegaly. I Alcira Queen MD discussed impressio n #1 with Agnieszka López APRN on 01/30/2022 2:56 PM. Preliminary report signed by: Alcira pena at 01/30/2022 3:03 PM I have [...] who have questions please contact the health nursing care attendant that requested your imaging first. ? Electronically signed by: Melita Mills MD, [facility] ([phone]), at 01/30/2022 3:20 PM Narrative 01/30/2022 3:20 PM EDT EXAMINATION: CT [...] The bladder is decompre ssed with a Ayala catheter in place. Trace nondependent gas within [...] The bladder is decompre ssed with a Ayala catheter in place. Trace nondependent gas within [...] follow-up. 2. Diffuse anasarca. 3. Hepatomegaly. I Alcira Queen MD discussed impressio n #1 with Agnieszka López APRN on 01/30/2022 2:56 PM. Preliminary report signed by: Alcira pena at 01/30/2022 3:03 PM I have [...] ho have questions please contact the health nursing care attendant that requested your imaging first. Agnieszka López APRN IMG CT ORDERABLES (ABNORMAL) Electrolytes panel (01/30/2022 12:23 PM EDT) athologist Signature Sodium 122 (L) 135 - 145 [facility] mmol/L [facility] Potassium 5.2 (H) 3.5 - 5.0 [facility] mmol/L [facility] Comment: Please note: ??Patients with WBC >100,00 0 may have falsely elevated Potassium levels. ??For accurate Potassium quantif ication in these patients send serum separator tube (gold top) for subsequent determinations. ??Contact the Clinical Chemistry Laboratory if there are any qu estions. Chloride 92 (L) 98 - 107 mmol/L [facility] CO2 21 (L) 22 - 31 mmol/L [facility] Anion Gap 9 5 - 15 mmol/L [facility] LABORATORY Specimen Anatomical Collection Method Collection Time Receive d Time (Source) Location / / Volume Laterality Blood 01/30/2022 12:23 01/30/2022 PM EDT 12:33 PM EDT Resulting Agency Comment Spec In Lab Agnieszka López APRN CHEMISTRY ORDERABLES Performing Organization Address City/State/Z[place] [address] POCT Glucose (01/30/2022 10:42 AM EDT) athologist Signature POC Glucose 140 65 - 199 [facility] mg/dL [facility] Comment: Supplemental ranges: <140 mg/dL before meals <180 mg/dL all other times of the day Specimen Anatomical Collection Method Collection Time Receive d Time (Source) Location / / Volume Laterality Blood 01/30/2022 10:42 01/30/2022 AM EDT 10:42 AM EDT Beck Sanz MD POINT OF CARE TEST ORDERABLE S Performing Organization Address City/[facility]/ZIP Code Phon e Number [place] [phone] EKG 12 Lead (01/30/2022 9:18 AM EDT) Component Value Ref Range Test Analysis Performed Pathologis t Method Time At Signature Ventricular rate 111 BPM MUSE SYSTEM Atrial Rate 111 BPM MUSE SYSTEM P-R Interval 136 ms MUSE SYSTEM QRS Duration 84 ms MUSE SYSTEM Q-T Interval 308 ms MUSE SYSTEM QTC Calculated 418 ms MUSE SYSTEM (Bezet) Calculated P Blackwood 13 degrees MUSE SYSTEM Calculated R Blackwood 31 degrees MUSE SYSTEM Calculated T Blackwood -8 degrees MUSE SYSTEM INTERPRETATION Sinus tachycardia MUSE SY STEM Nonspecific T wave abnormality Abnormal ECG When compared with ECG of 23-JAN-2022 00:46, heart rate has slowed Confirmed by Clem Guo ([id number]) on 02/01/2022 1:23:54 PM Specimen Anatomical Collection Method Collection Time Receive d Time (Source) Location / / Volume Laterality 01/30/2022 9:18 AM 2 1:23 EDT PM EDT Anthony Harvey APRN ECG ORDERABLES Performing Organization Address City/[facility]/ZIP Code Phon e Number MUSE SYSTEM POCT Glucose (01/30/2022 4:21 AM EDT) P athologist Signature POC Glucose 119 65 - 199 [facility] mg/dL [facility] Comment: Supplemental ranges: <140 mg/dL before meals <180 mg/dL all other times of the day Specimen Anatomical Collection Method Collection Time Receive d Time (Source) Location / / Volume Laterality Blood 01/30/2022 4:21 AM 2 4:21 EDT AM EDT Beck Sanz MD POINT OF CARE TEST ORDERABLE S Performing Organization Address City/[facility]/Z[place] [address] Scan, Peripheral Blood (01/30/2022 4:10 AM EDT) Patholo gist Method Time Signature Plat Estimate Normal [facility] RBC Morphology Normal [facility] Toxic Present [facility] LABORATORY Dohle Bodies Present [facility] Specimen Anatomical Collection Method Collection Time Receive d Time (Source) Location / / Volume Laterality Blood 01/30/2022 4:10 AM 4:36 EDT AM EDT Resulting Agency Comment Spec In Lab Cristina Hillman APRN HEMATOLOGY ORDERABLES Performing Organization Address City/State/ZIP [place] [address] (ABNORMAL) Differential, Automated (01/30/2022 4:10 AM EDT) [facility] Method Time Signature Neutrophils % 60.7 % [facility] Neutr Abs (ANC) 23.73 (H) 1.70 - [facility] 6.10 [facility] x10(3)/[facility] LABORATORY Lymphocytes % 7.2 % [facility] Lymphocytes Abs 2.8 0.9 - 3.2 [facility] x10(3)/[facility] LABORATORY Monocytes % 9.3 % [facility]ORATORY Monocyte Abs 3.6 (H) 0.3 - 0.9 [facility] x10(3)/[facility] LABORATORY Eosinophils % 0.4 % [facility] Eosinophils Abs 0.2 0.0 - 0.4 [facility] x10(3)/[facility] LABORATORY Basophils % 0.2 % [facility] Basophils Abs 0.1 0.0 - 0.1 [facility] x10(3)/[facility] LABORATORY Immature Gran % 22.20 % [facility] Comment: Immature granulocytes(IG's)percentage an d absolute count will include metamyelocytes, myelocytes, and promyelo cytes. Blood smears from CBCs yielding IG's will be scanned manually for concor dance. If this scan disagrees with the automated IG or if promyelocytes are not ed, a manual differential will be performed. Gemini Gran Abs 8.67 (H) 0.00 - 0.04 x10(3)/[facility] LABORATORY Specimen Anatomical Collection Method Collection Time Receive d Time (Source) Location / / Volume Laterality Blood 01/30/2022 4:10 AM 2 4:36 EDT AM EDT Resulting Agency Comment Spec In Lab Cristina B Alyciacaitlin LEVELER HELPER HEMATOLOGY ORDERABLES Performing Organization Address City/State/Z[place] [address] (ABNORMAL) Hemogram (01/30/2022 4:10 AM EDT) P athologist Signature WBC 39.1 4.0 - 9.5 [facility] (Critical) x10(3)/[facility] LABORATORY Comment: This result has been called to BECK GUILLEN by Shelli Sauceda on 01 30 2022 at 0448, and has been read back. RBC 3.18 (L) 4.58 - 5.54 x10(6)/[facility] LABORATORY Hemoglobin 10.5 (L) 13.7 - 16.5 g/dL [facility] LABORATORY Hematocrit 29.3 (L) 40.5 - 48.5 % [facility] LABORATORY MCV 92.1 82.9 - 93.1 [facility] LABORATORY MCH 33.0 (H) 27.5 - 32.1 pg [facility] LABORATORY MCHC 35.8 (H) 32.0 - 35.7 g/dL [facility] LABORATORY Platelets 195 145 - 357 x10(3)/[facility] LABORATORY RDWSD 43.3 36.0 - 45.0 [facility] LABORATORY RDWCV 13.0 11.4 - 13.8 % [facility] LABORATORY MPV 10.6 7.6 - 12.9 [facility] LABORATORY nRBC % Auto 0.0 % [facility] LABORATORY nRBC Abs Auto 0.000 0.000 - 0.000 x10(3)/[facility] LABORATORY Specimen Anatomical Collection Method Collection Time Receive d Time (Source) Location / / Volume Laterality Blood 01/30/2022 4:10 AM 2 4:36 EDT AM EDT Resulting Agency Comment Spec In Lab Cristina Hillman LEVELER HELPER HEMATOLOGY ORDERABLES Performing Organization Address City/State/ZIP [place] [address] (ABNORMAL) Blood Gas Venous ([facility]) (01/30/2022 4:10 AM EDT) Analysis Performed At Patho logist Time Signature pH Honorio 7.43 (H) 7.32 - [facility] 7.42 [facility] pCO2 Honorio 34 (L) 41 - 51 [facility] LABORATORY pO2 Honorio 35 25 - 40 [facility] LABORATORY HCO3 Honorio 22.2 mmol/L [facility] BE Honorio -2.2 mmol/L [facility] Hgb Blood Gas 11.6 (L) 13.7 - [facility] 16.5 g/dL [facility] O2HB Honorio 72.9 % [facility] COHB Honorio 1.0 % [facility] Comment: Nonsmokers: 0.5-1.5% COHB Smokers: Variable, but usually less than 10% Toxic: 20-30% COHB Lethal: Greater than 60% COHB METHB Honorio 0.3 <=1.5 % [facility] LABORATORY Na Whole Blood 123 (L) 135 - 145 mmol/L [facility] LABORATORY K Whole Blood 5.1 (H) 3.5 - 5.0 mmol/L [facility] Comment: Please note: Patients with WBC >100,000 may have falsely elevated Potassium levels. Contact the Clinical Chemistry L aboratory if there are any questions. ICa Whole Blood 1.05 (L) 1.15 - 1.33 mmol/L [facility] Comment: Note: ??Total bilirubin higher than 20 m g/dL may lead to falsely low ionized calcium. CL Whole Blood 97 (L) 98 - 107 mmol/L [facility] Gluc Whole Bld 142 65 - 199 mg/dL [facility] LABORATORY Comment: Diabetes: >=200 mg/dL plus symp toms Lactate WB 1.2 0.5 - 2.2 mmol/L [facility] BGas Source Venous [facility]OR[facility]ORY Specimen Anatomical Collection Method Collection Time Receive d Time (Source) Location / / Volume Laterality Blood Venous Draw / 01/30/2022 4:10 AM 01/31/20 22 4:31 Unknown EDT AM EDT Resulting Agency Comment Spec In Lab Angelina Reynoso MD CHEMISTRY ORDERABLES Performing Organization Address City/[facility]/Z[place] [address] (ABNORMAL) CK (01/30/2022 4:10 AM EDT) athologist Signature CK, Total 5,685 (H) 0 - 200 [facility] LABORATORY Specimen Anatomical Collection Method Collection Time Receive d Time (Source) Location / / Volume Laterality Blood 01/30/2022 4:10 AM 2 4:36 EDT AM EDT Resulting Agency Comment Spec In Lab Cristina Hillman APRN CHEMISTRY ORDERABLES Performing Organization Address City/[facility]/Z[place] [address] (ABNORMAL) Basic Metabolic Panel (non-fasting) (01/30/2022 4:10 AM EDT) athologist [facility] Glucose Lvl 146 65 - 199 [facility] mg/dL [facility] Comment: Diabetes: >=200 mg/dL plus symp toms BUN 43 (H) 10 - 20 mg/dL [facility] LABORATORY Creatinine 3.71 (H) 0.80 - 1.50 mg/dL [facility] LABORATORY Sodium 127 (L) 135 - 145 mmol/L [facility] LABORATORY Potassium 5.3 (H) 3.5 - 5.0 mmol/L [facility] LABORATORY Comment: Please note: ??Patients with WBC >100,00 0 may have falsely elevated Potassium levels. ??For accurate Potassium quantif ication in these patients send serum separator tube (gold top) for subsequent determinations. ??Contact the Clinical Chemistry Laboratory if there are any qu estions. Chloride 96 (L) 98 - 107 mmol/L [facility] CO2 22 22 - 31 mmol/L [facility] Anion Gap 9 5 - 15 mmol/L [facility]ORATORY Calcium 7.5 (L) 8.5 - 10.5 mg/dL [facility] LABORATORY Estimated GFR 22 (L) >=60 mL/min/1.73 m?? [facility] Comment: This patient's estimated GFR [...] Han DO CHEMISTRY ORDERABLES Performing Organization Address City/[facility]/ZIP Code Phon e Number [address] Phosphorus (01/30/2022 4:10 AM EDT) P athologist Signature Phosphorus 4.0 2.5 - 4.5 [facility] mg/dL [facility] Specimen Anatomical Collection Method Collection Time Receive d Time (Source) Location / / Volume Laterality Blood 01/30/2022 4:10 AM 2 4:36 EDT AM EDT Resulting Agency Comment Spec In Lab Gela Novak MD CHEMISTRY ORDERABLES Performing Organization Address City/[facility]/ZIP Code Phon e Number [address] Magnesium (01/30/2022 4:10 AM EDT) athologist Signature Magnesium 0.92 0.69 - 1.07 [facility] mmol/L [facility] Specimen Anatomical Collection Method Collection Time Receive d Time (Source) Location / / Volume Laterality Blood 01/30/2022 4:10 AM 2 4:36 EDT AM EDT Resulting Agency Comment Spec In Lab Gela Novak MD CHEMISTRY ORDERABLES Performing Organization Address City/[facility]/ZIP Code Phon e Number [address] POCT Glucose (01/30/2022 12:07 AM EDT) athologist Signature POC Glucose 115 65 - 199 JOSH MANDO mg/dL [facility] Comment: Supplemental ranges: <140 mg/dL before meals <180 mg/dL all other times of the day Specimen Anatomical Collection Method Collection Time Receive d Time (Source) Location / / Volume Laterality Blood 01/30/2022 12:07 01/30/2022 AM EDT 12:07 AM EDT Beck Sanz MD POINT OF CARE TEST ORDERABLE S Performing Organization Address City/[facility]/ZIP Code Phon e Number [address] POCT Glucose (01/29/2022 9:40 PM EDT) athologist Signature POC Glucose 128 65 - 199 JOSH MANDO mg/dL [facility] Comment: Supplemental ranges: <140 mg/dL before meals <180 mg/dL all other times of the day Specimen Anatomical Collection Method Collection Time Receive d Time (Source) Location / / Volume Laterality Blood 01/29/2022 9:40 PM 2 9:40 EDT PM EDT Beck Sanz MD POINT OF CARE TEST ORDERABLE S Performing Organization Address City/[facility]/ZIP Code Phon e Number [address] (ABNORMAL) Phosphorus (01/29/2022 9:35 PM EDT) athologist Signature Phosphorus 4.9 (H) 2.5 - 4.5 [facility] mg/dL [facility] Specimen Anatomical Collection Method Collection Time Receive d Time (Source) Location / / Volume Laterality Blood 01/29/2022 9:35 PM 2 9:46 EDT PM EDT Resulting Agency Comment Spec In Lab Angelina Reynoso MD CHEMISTRY ORDERABLES Performing Organization Address City/State/[place] [address] Scan, Peripheral Blood (01/29/2022 2:55 AM EDT) P athologist Signature Plat Estimate Normal [facility] RBC Morphology Normal [facility] Specimen Anatomical Collection Method Collection Time Receive d Time (Source) Location / / Volume Laterality Blood 01/29/2022 2:55 AM 2 3:06 EDT AM EDT Resulting Agency Comment Spec In Lab Cristina Hillman APRN HEMATOLOGY ORDERABLES Performing Organization Address City/[facility]/[place] [address] (ABNORMAL) Differential, Automated (01/29/2022 2:55 AM EDT) Patholo gist Method Time Signature Neutrophils % 47.3 % [facility] Neutr Abs (ANC) 13.86 (H) 1.70 - [facility] 6.10 [facility] x10(3)/[facility] LABORATORY Lymphocytes % 8.8 % [facility] Lymphocytes Abs 2.6 0.9 - 3.2 [facility] x10(3)/[facility] LABORATORY Monocytes % 9.4 % [facility] Monocyte Abs 2.8 (H) 0.3 - 0.9 [facility] x10(3)/[facility] LABORATORY Eosinophils % 1.1 % [facility] Eosinophils Abs 0.3 0.0 - 0.4 [facility] x10(3)/[facility] LABORATORY Basophils % 0.2 % [facility] Basophils Abs 0.1 0.0 - 0.1 [facility] x10(3)/[facility] LABORATORY Immature Gran % 33.20 % [facility] Comment: Immature granulocytes(IG's)percentage an d absolute count will include metamyelocytes, myelocytes, and promyelo cytes. Blood smears from CBCs yielding IG's will be scanned manually for concor dance. If this scan disagrees with the automated IG or if promyelocytes are not ed, a manual differential will be performed. Gemini Gran Abs 9.75 (H) 0.00 - 0.04 x10(3)/[facility] LABORATORY Specimen Anatomical Collection Method Collection Time Receive d Time (Source) Location / / Volume Laterality Blood 01/29/2022 2:55 AM 3:06 EDT AM EDT Resulting Agency Comment Spec In Lab Cristina Hillman APRN HEMATOLOGY ORDERABLES Performing Organization Address City/State/ZIP Code Phon e Number [place] [phone] HOSPITAL LAB[address]ORY [address] (ABNORMAL) Hemogram (01/29/2022 2:55 AM EDT) Analysis Performed At Patho logist Time Signature WBC 29.4 (H) 4.0 - 9.5 [facility] x10(3)/[facility] LABORATORY RBC 3.34 (L) 4.58 - [facility] 5.[facility] x10(6)/[facility] LABORATORY Hemoglobin 10.7 (L) 13.7 - [facility] g/dL [facility] Hematocrit 31.3 (L) 40.5 - [facility] MANDO 48.5 % [facility] MCV 93.7 (H) 82.9 - [facility] 93.1 [facility] LABORATORY MCH 32.0 27.5 - [facility] 32.1 pg [facility] MCHC 34.2 32.0 - [facility] 35.7 g/dL [facility] Platelets 148 145 - 357 [facility] x10(3)/[facility] LABORATORY RDWSD 44.0 36.0 - [facility] 45.0 [facility] LABORATORY RDWCV 13.0 11.4 - [facility] 13.8 % [facility] MPV 10.7 7.6 - 12.9 [facility] LABORATORY nRBC % Auto 0.0 % [facility] nRBC Abs Auto 0.000 0.000 - [facility] 0.000 [facility] x10(3)/[facility] LABORATORY Specimen Anatomical Collection Method Collection Time Receive d Time (Source) Location / / Volume Laterality Blood 01/29/2022 2:55 AM 2 3:06 EDT AM EDT Resulting Agency Comment Spec In Lab Gemma B Pentland LEVELER HELPER HEMATOLOGY ORDERABLES Performing Organization Address City/[facility]/ZIP Code Phon e Number [address] (ABNORMAL) CK (01/29/2022 2:55 AM EDT) athologist Signature CK, Total 7,723 (H) 0 - 200 [facility] unit/L [facility] Comment: result rechecked-KS Specimen Anatomical Collection Method Collection Time Receive d Time (Source) Location / / Volume Laterality Blood 01/29/2022 2:55 AM 2 3:06 EDT AM EDT Resulting Agency Comment Spec In Lab Gemma B Pentland LEVELER HELPER CHEMISTRY ORDERABLES Performing Organization Address City/[facility]/ZIP [place] [address] (ABNORMAL) Basic Metabolic Panel (non-fasting) (01/29/2022 2:55 AM EDT) P athologist Signature Glucose Lvl 124 65 - 199 [facility] mg/dL [facility] Comment: Diabetes: >=200 mg/dL plus symp toms BUN 34 (H) 10 - 20 mg/dL [facility] LABORATORY Comment: result rechecked-KS Creatinine 3.22 (H) 0.80 - 1.50 mg/dL [facility] Comment: result rechecked-KS Sodium 130 (L) 135 - 145 mmol/L [facility] LABORATORY Potassium 4.8 3.5 - 5.0 mmol/L [facility] LABORATORY Comment: Please note: ??Patients with WBC >100,00 0 may have falsely elevated Potassium levels. ??For accurate Potassium quantif ication in these patients send serum separator tube (gold top) for subsequent determinations. ??Contact the Clinical Chemistry Laboratory if there are any qu estions. Chloride 98 98 - 107 mmol/L [facility] CO2 24 22 - 31 mmol/L [facility] Anion Gap 8 5 - 15 mmol/L [facility] Calcium 7.6 (L) 8.5 - 10.5 mg/dL [facility] LABORATORY Estimated GFR 26 (L) >=60 mL/min/1.73 m?? [facility] Comment: This patient's estimated GFR [...] (Source) Location / / Volume Laterality Blood 01/29/2022 2:55 AM 2 3:06 EDT AM EDT Resulting Agency Comment Spec In Lab Dunia Han DO CHEMISTRY ORDERABLES Performing Organization Address City/State/ZIP [place] [address] Phosphorus (01/29/2022 2:55 AM EDT) P athologist Signature Phosphorus 3.2 2.5 - 4.5 [facility] mg/dL [facility] Specimen Anatomical Collection Method Collection Time Receive d Time (Source) Location / / Volume Laterality Blood 01/29/2022 2:55 AM 2 3:06 EDT AM EDT Resulting Agency Comment Spec In Lab Gela Novak MD CHEMISTRY ORDERABLES Performing Organization Address City/State/ZIP [place] [address] [facility] [address] Drive Magnesium (01/29/2022 2:55 AM EDT) P athologist Signature Magnesium 0.85 0.69 - 1.07 [facility] mmol/L [facility] Specimen Anatomical Collection Method Collection Time Receive d Time (Source) Location / / Volume Laterality Blood 01/29/2022 2:55 AM 2 3:06 EDT AM EDT Resulting Agency Comment Spec In Lab Gela Novak MD CHEMISTRY ORDERABLES Performing Organization Address City/State/ZIP [place] [address] [facility] [address] Drive (ABNORMAL) Blood Gas Venous ([facility]) (01/28/2022 1:25 PM EDT) Analysis Performed At Patho logist Time Signature pH Honor[place] 7.40 7.32 - [facility] 7.42 [facility] pCO2 [place] 44 41 - 51 [facility] LABORATORY pO2 [place] 37 25 - 40 [facility] LABORATORY HCO3 [place] 26.5 mmol/L [facility] BE Honorio 1.6 mmol/L [facility] Hgb Blood Gas 12.1 (L) 13.7 - [facility] 16.5 g/dL [facility] O2HB [place] 71.4 % [facility] COHB Honorio 0.7 % [facility] Comment: Nonsmokers: 0.5-1.5% COHB Smokers: Variable, but usually less than 10% Toxic: 20-30% COHB Lethal: Greater than 60% COHB METHB Honorio 0.1 <=1.5 % [facility] LABORATORY Na Whole Blood 130 (L) 135 - 145 mmol/L [facility] LABORATORY K Whole Blood 4.6 3.5 - 5.0 mmol/L [facility] Comment: Please note: Patients with WBC >100,000 may have falsely elevated Potassium levels. Contact the Clinical Chemistry L aboratory if there are any questions. ICa Whole Blood 1.16 1.15 - 1.33 mmol/L [facility] Comment: Note: ??Total bilirubin higher than 20 m g/dL may lead to falsely low ionized calcium. CL Whole Blood 103 98 - 107 mmol/L [facility] Gluc Whole Bld 130 65 - 199 mg/dL [facility] Comment: Diabetes: >=200 mg/dL plus symp toms Lactate WB 1.0 0.5 - 2.2 mmol/L [facility] BGas Source Venous [facility] Temp Honorio 37.3 Celsius [facility] Specimen Anatomical Collection Method Collection Time Receive d Time (Source) Location / / Volume Laterality Blood Venous Draw / 01/28/2022 1:25 PM 01/29/20 1:36 Unknown EDT PM EDT Resulting Agency Comment Spec In Lab Angelina Reynoso MD CHEMISTRY ORDERABLES Performing Organization Address City/State/ZIP [place] [address] (ABNORMAL) Blood Gas Venous ([facility]) (01/28/2022 6:20 AM EDT) Analysis Performed At Patho logist Time Signature pH [place] 7.41 7.32 - [facility] 7.42 [facility] pCO2 [place] 42 41 - 51 [facility] LABORATORY pO2 Honorio 30 25 - 40 [facility] LABORATORY HCO3 [place] 26.3 mmol/L [facility] BE Honorio 1.7 mmol/L [facility] Hgb Blood Gas 12.4 (L) 13.7 - [facility] 16.5 g/dL [facility] O2HB [place] 64.2 % [facility] COHB Honorio 0.8 % [facility] Comment: Nonsmokers: 0.5-1.5% COHB Smokers: Variable, but usually less than 10% Toxic: 20-30% COHB Lethal: Greater than 60% COHB METHB [place] 0.3 <=1.5 % [facility] Na Whole Blood 130 (L) 135 - 145 mmol/L [facility] K Whole Blood 4.8 3.5 - 5.0 mmol/L [facility] Comment: Please note: Patients with WBC >100,000 may have falsely elevated Potassium levels. Contact the Clinical Chemistry L aboratory if there are any questions. ICa Whole Blood 1.17 1.15 - 1.33 mmol/L [facility] Comment: Note: ??Total bilirubin higher than 20 m g/dL may lead to falsely low ionized calcium. CL Whole Blood 103 98 - 107 mmol/L [facility] Gluc Whole Bld 112 65 - 199 mg/dL [facility] Comment: Diabetes: >=200 mg/dL plus symp toms Lactate WB 1.1 0.5 - 2.2 mmol/L [facility] FIO2 Honorio 21 % [facility] BGas Source Venous [facility] Specimen Anatomical Collection Method Collection Time Receive d Time (Source) Location / / Volume Laterality Blood Venous Draw / 01/28/2022 6:20 AM 01/29/20 22 6:28 Unknown EDT AM EDT Resulting Agency Comment Spec In Lab Angelina Reynoso MD CHEMISTRY ORDERABLES Performing Organization Address City/State/ZIP Code Phon e Number [address] (ABNORMAL) CK (01/28/2022 6:20 AM EDT) P athologist Signature CK, Total 11,287 (H) 0 - 200 [facility] unit/L [facility] Specimen Anatomical Collection Method Collection Time Receive d Time (Source) Location / / Volume Laterality Blood 01/28/2022 6:20 AM 2 6:27 EDT AM EDT Resulting Agency Comment Spec In Lab Cristina Hillman APRN CHEMISTRY ORDERABLES Performing Organization Address City/[facility]/ZIP Code Phon e Number [address] (ABNORMAL) _Urinalysis with microscopic (01/28/2022 6:00 AM EDT) Patholo gist Method Time Signature Glucose UA 100 (A) Negative [facility] mg/dL [facility] Protein UA >=300 (A) Negative [facility] Bilirubin UA Negative Negative [facility] mg/dL [facility] Comment: Clinical correlation required for positi ve Urine Bilirubin results as false positive may occur with some drugs and d rug related products. If a false positive is suspected a serum total bili villaseñor should be considered if clinically indicated. Urobilinogen UA Normal Normal mg/dL [facility] pH UA 7.5 5.0 - 8.0 [facility] Blood UA Large (A) Negative mg/dL [facility] Ketones UA Negative Negative mg/dL [facility] Nitrite UA Negative Negative [facility] Leukocytes UA Negative Negative [facility] LABORATORY Appearance UA Clear Clear [facility] Spec [place] UA 1.025 1.006 - 1.030 [facility] LAB[facility] Color UA Yellow [facility] RBC UA 4 (H) 0 - 3 /HPF [facility] WBC UA 1 0 - 3 /HPF [facility] Bacteria UA Rare (A) None /HPF [facility] Specimen Anatomical Collection Method Collection Time Receive d Time (Source) Location / / Volume Laterality Urine 01/28/2022 6:00 AM 2 6:40 EDT AM EDT Resulting Agency Comment Spec In Lab Beck Sanz MD URINE ORDERABLES Performing Organization Address City/[facility] [place] [address] Blood culture (01/28/2022 3:45 AM EDT) [facility] gist Method Time Signature Blood Culture No growth JOSH MANDO at 5 days. [facility] Specimen Anatomical Collection Method Collection Time Receive d Time (Source) Location / / Volume Laterality Blood 01/28/2022 3:45 AM 2 5:37 EDT AM EDT Resulting Agency Comment Spec In Lab Beck Sanz MD MICROBIOLOGY - BLOOD ORDERAB LES Performing Organization Address City/[facility] Phon e Number [place] [phone] [facility] LAB[address]ORY Drive Scan, Peripheral Blood (01/28/2022 12:18 AM EDT) Patholo gist Method Time Signature Plat Estimate Decreased [facility] RBC Morphology Normal [facility] Specimen Anatomical Collection Method Collection Time Receive d Time (Source) Location / / Volume Laterality Blood 01/28/2022 12:18 01/28/2022 AM EDT 12:24 AM EDT Resulting Agency Comment Spec In Lab Cristina Hillman LEVELER HELPER HEMATOLOGY ORDERABLES Performing Organization Address City/State/ZIP Code Phon e Number [address] (ABNORMAL) Blood Gas Venous ([facility]) (01/28/2022 12:18 AM EDT) Analysis Performed At Patho logist Time Signature pH [place] 7.39 7.32 - [facility] 7.42 [facility] pCO2 [place] 44 41 - 51 [facility] LABORATORY pO2 [place] 34 25 - 40 [facility] LABORATORY HCO3 [place] 25.9 mmol/L [facility] BE Honorio 1.0 mmol/L [facility] Hgb Blood Gas 12.8 (L) 13.7 - [facility] 16.5 g/dL [facility] O2HB [place] 68.7 % [facility] COHB Honorio 0.6 % [facility] Comment: Nonsmokers: 0.5-1.5% COHB Smokers: Variable, but usually less than 10% Toxic: 20-30% COHB Lethal: Greater than 60% COHB METHB [place] 0.3 <=1.5 % [facility] Na Whole Blood 130 (L) 135 - 145 mmol/L [facility] K Whole Blood 4.4 3.5 - 5.0 mmol/L [facility] Comment: Please note: Patients with WBC >100,000 may have falsely elevated Potassium levels. Contact the Clinical Chemistry L aboratory if there are any questions. ICa Whole Blood 1.14 (L) 1.15 - 1.33 mmol/L [facility] Comment: Note: ??Total bilirubin higher than 20 m g/dL may lead to falsely low ionized calcium. CL Whole Blood 102 98 - 107 mmol/L [facility] Gluc Whole Bld 120 65 - 199 mg/dL [facility] Comment: Diabetes: >=200 mg/dL plus symp toms Lactate WB 1.0 0.5 - 2.2 mmol/L [facility] FIO2 Honorio 21 % [facility] BGas Source Venous [facility] Specimen Anatomical Collection Method Collection Time Receive d Time (Source) Location / / Volume Laterality Blood Venous Draw / 01/28/2022 12:18 01/28/2022 Unknown AM EDT 12:25 AM EDT Resulting Agency Comment Spec In Lab Angelina Reynoso MD CHEMISTRY ORDERABLES Performing Organization Address City/State/ZIP [place] [address] (ABNORMAL) Differential, Automated (01/28/2022 12:18 AM EDT) [facility] gist Method Time Signature Neutrophils % 56.1 % [facility] Neutr Abs (ANC) 13.41 (H) 1.70 - [facility] 6.10 [facility] x10(3)/[facility] LABORATORY Lymphocytes % 7.3 % [facility] Lymphocytes Abs 1.7 0.9 - 3.2 [facility] x10(3)/[facility] LABORATORY Monocytes % 6.7 % [facility] Monocyte Abs 1.6 (H) 0.3 - 0.9 [facility] x10(3)/[facility] LABORATORY Eosinophils % 1.0 % [facility] Eosinophils Abs 0.2 0.0 - 0.4 [facility] x10(3)[facility] LABORATORY Basophils % 0.1 % [facility] Basophils Abs 0.0 0.0 - 0.1 [facility] x10(3)/[facility] LABORATORY Immature Gran % 28.80 % [facility] Comment: Immature granulocytes(IG's)percentage an d absolute count will include metamyelocytes, myelocytes, and promyelo cytes. Blood smears from CBCs yielding IG's will be scanned manually for concor dance. If this scan disagrees with the automated IG or if promyelocytes are not ed, a manual differential will be performed. Gemini Gran Abs 6.87 (H) 0.00 - 0.04 x10(3)/[facility] LABORATORY Specimen Anatomical Collection Method Collection Time Receive d Time (Source) Location / / Volume Laterality Blood 01/28/2022 12:18 01/28/2022 AM EDT 12:24 AM EDT Resulting Agency Comment Spec In Lab Cristina Hillman APRN HEMATOLOGY ORDERABLES Performing Organization Address City/State/ZIP Code Phon e Number [place] [phone] HOSPITAL LABOR[address]ORY Drive (ABNORMAL) Hemogram (01/28/2022 12:18 AM EDT) Analysis Performed At Patho logist Time Signature WBC 23.9 (H) 4.0 - 9.5 [facility] x[facility](3[facility] LABORATORY RBC 3.63 (L) 4.58 - [facility].54 [facility] x10(6)/[facility] LABORATORY Hemoglobin 11.9 (L) 13.7 - [facility] 16.5 g/dL [facility] Hematocrit 34.7 (L) 40.5 - [facility] M[facility]O 48.5 % [facility] MCV 95.6 (H) 82.9 - [facility] 93.1 [facility] LABORATORY MCH 32.8 (H) 27.5 - [facility] 32.1 pg [facility] MCHC 34.3 32.0 - [facility] 35.7 g/dL [facility] Platelets 106 (L) 145 - 357 [facility] x10(3)/[facility] LABORATORY RDWSD 43.9 36.0 - [facility] 45.0 [facility] LABORATORY RDWCV 12.8 11.4 - [facility] 13.8 % [facility] MPV 10.5 7.6 - 12.9 [facility] LABORATORY nRBC % Auto 0.0 % [facility] nRBC Abs Auto 0.000 0.000 - [facility] 0.000 [facility] x10(3)/[facility] LABORATORY Specimen Anatomical Collection Method Collection Time Receive d Time (Source) Location / / Volume Laterality Blood 01/28/2022 12:18 01/28/2022 AM EDT 12:24 AM EDT Resulting Agency Comment Spec In Lab [place] [facility] LEVELER HELPER HEMATOLOGY ORDERABLES Performing Organization Address City/[facility]/ZIP Code Phon e Number [address] (ABNORMAL) Hepatic Function Panel (01/28/2022 12:18 AM EDT) P athologist Signature Total Protein 4.5 (L) 6.1 - 8.0 [facility] g/dL [facility] Albumin 2.0 (L) 3.2 - 5.2 [facility] g/dL [facility] AST 418 (H) 0 - 39 [facility] unit/L [facility] ALT 237 (H) 0 - 55 [facility] unit/L [facility] Alk Phos 88 40 - 130 [facility]L [facility] Total 0.4 0.2 - 1.3 [facility] Bilirubin mg/dL [facility] Bili, Direct 0.3 0.0 - 0.3 [facility] mg/dL [facility] Specimen Anatomical Collection Method Collection Time Receive d Time (Source) Location / / Volume Laterality Blood 01/28/2022 12:18 01/28/2022 AM EDT 12:24 AM EDT Resulting Agency Comment Spec In Lab Gemma B Pentland LEVELER HELPER CHEMISTRY ORDERABLES Performing Organization Address City/[facility]/Z[place] [address] (ABNORMAL) Basic Metabolic Panel (non-fasting) (01/28/2022 12:18 AM EDT) P athologist Signature Glucose Lvl 118 65 - 199 [facility] Comment: Diabetes: >=200 mg/dL plus symp toms BUN 20 10 - 20 mg/dL [facility] Creatinine 2.03 (H) 0.80 - 1.50 mg/dL [facility] Sodium 136 135 - 145 mmol/L [facility] Potassium 4.6 3.5 - 5.0 mmol/L [facility] Comment: Please note: ??Patients with WBC >100,00 0 may have falsely elevated Potassium levels. ??For accurate Potassium quantif ication in these patients send serum separator tube (gold top) for subsequent determinations. ??Contact the Clinical Chemistry Laboratory if there are any qu estions. Chloride 102 98 - 107 mmol/L [facility] CO2 25 22 - 31 mmol/L [facility] Anion Gap 9 5 - 15 mmol/L [facility] Calcium 7.9 (L) 8.5 - 10.5 mg/dL [facility] Estimated GFR 44 (L) >=60 mL/min/1.73 m?? [facility] Comment: This patient's estimated GFR was calcula karina using the 2020 CKD-EPI equation. The estimated GFR can vary from the gutsavo ured GFR by up to 30% in [...] (Source) Location / / Volume Laterality Blood 01/28/2022 12:18 01/28/2022 AM EDT 12:24 AM EDT Resulting Agency Comment Spec In Lab Dunia Han DO CHEMISTRY ORDERABLES Performing Organization Address City/State/Z[place] [address] Phosphorus (01/28/2022 12:18 AM EDT) athologist Signature Phosphorus 2.5 2.5 - 4.5 [facility] MANDO mg/dL [facility] Specimen Anatomical Collection Method Collection Time Receive d Time (Source) Location / / Volume Laterality Blood 01/28/2022 12:18 01/28/2022 AM EDT 12:24 AM EDT Resulting Agency Comment Spec In Lab Gela Novak MD CHEMISTRY ORDERABLES Performing Organization Address City/State/[place] [address] Magnesium (01/28/2022 12:18 AM EDT) athologist Signature Magnesium 0.81 0.69 - 1.07 [facility] mmol/L [facility] Specimen Anatomical Collection Method Collection Time Receive d Time (Source) Location / / Volume Laterality Blood 01/28/2022 12:18 01/28/2022 AM EDT 12:24 AM EDT Resulting Agency Comment Spec In Lab Gela Novak MD CHEMISTRY ORDERABLES Performing Organization Address City/State/ZIP Code Phon e Number [address] (ABNORMAL) CK (01/28/2022 12:18 AM EDT) athologist [facility] CK, Total 14,277 (H) 0 - 200 [facility] unit/L [facility] Specimen Anatomical Collection Method Collection Time Receive d Time (Source) Location / / Volume Laterality Blood 01/28/2022 12:18 01/28/2022 AM EDT 12:24 AM EDT Resulting Agency Comment Spec In Lab Cristina Hillman APRN CHEMISTRY ORDERABLES Performing Organization Address City/State/ZIP Code Phon e Number [address] POCT Glucose (01/27/2022 8:29 PM EDT) athologist [facility] POC Glucose 104 65 - 199 [facility] mg/dL [facility] Comment: Supplemental ranges: <140 mg/dL before meals <180 mg/dL all other times of the day Specimen Anatomical Collection Method Collection Time Receive d Time (Source) Location / / Volume Laterality Blood 01/27/2022 8:29 PM 8:29 EDT PM EDT Beck Sanz MD POINT OF CARE TEST ORDERABLE S Performing Organization Address City/State/Z[place] [address] (ABNORMAL) Blood Gas Venous (NLH) (01/27/2022 6:06 PM EDT) Analysis Performed At Patho logist Time Signature pH Honorio 7.42 7.32 - [facility] 7.42 [facility] pCO2 Honorio 42 41 - 51 [facility] LABORATORY pO2 Honorio 35 25 - 40 [facility] LABORATORY HCO3 Honorio 26.5 mmol/L [facility] BE Honorio 2.0 mmol/L [facility] Hgb Blood Gas 11.9 (L) 13.7 - [facility] 16.5 g/dL [facility] O2HB Honorio 72.0 % [facility] COHB Honorio 0.8 % [facility] Comment: Nonsmokers: 0.5-1.5% COHB Smokers: Variable, but usually less than 10% Toxic: 20-30% COHB Lethal: Greater than 60% COHB METHB Honorio 0.2 <=1.5 % [facility] Na Whole Blood 130 (L) 135 - 145 mmol/L [facility] K Whole Blood 4.3 3.5 - 5.0 mmol/L [facility] Comment: Please note: Patients with WBC >100,000 may have falsely elevated Potassium levels. Contact the Clinical Chemistry L aboratory if there are any questions. ICa Whole Blood 1.14 (L) 1.15 - 1.33 mmol/L [facility] Comment: Note: ??Total bilirubin higher than 20 m g/dL may lead to falsely low ionized calcium. CL Whole Blood 103 98 - 107 mmol/L [facility] Gluc Whole Bld 142 65 - 199 mg/dL [facility] Comment: Diabetes: >=200 mg/dL plus symp toms Lactate WB 1.2 0.5 - 2.2 mmol/L [facility] BGas Source Venous [facility] Specimen Anatomical Collection Method Collection Time Receive d Time (Source) Location / / Volume Laterality Blood Venous Draw / 01/27/2022 6:06 PM 01/28/20 22 6:06 Unknown EDT PM EDT Resulting Agency Comment Spec In Lab Angelina Reynoso MD CHEMISTRY ORDERABLES Performing Organization Address City/State/Z[place] [address] (ABNORMAL) CK (01/27/2022 5:55 PM EDT) athologist [facility] CK, Total 15,910 (H) 0 - 200 [facility] unit/[facility] Specimen Anatomical Collection Method Collection Time Receive d Time (Source) Location / / Volume Laterality Blood 01/27/2022 5:55 PM 2 6:05 EDT PM EDT Resulting Agency Comment Spec In Lab Cristina Hillman APRN CHEMISTRY ORDERABLES Performing Organization Address City/State/Z[place] [address] POCT Glucose (01/27/2022 4:28 PM EDT) athologist Signature POC Glucose 99 65 - 199 [facility]/dL [facility] Comment: Supplemental ranges: <140 mg/dL before meals <180 mg/dL all other times of the day Specimen Anatomical Collection Method Collection Time Receive d Time (Source) Location / / Volume Laterality Blood 01/27/2022 4:28 PM 2 4:28 EDT PM EDT Beck Sazn MD POINT OF CARE TEST ORDERABLE S Performing Organization Address City/State/Z[place] [address] POCT Glucose (01/27/2022 12:13 PM EDT) athologist Signature POC Glucose 108 65 - 199 [facility] Comment: Supplemental ranges: <140 mg/dL before meals <180 mg/dL all other times of the day Specimen Anatomical Collection Method Collection Time Receive d Time (Source) Location / / Volume Laterality Blood 01/27/2022 12:13 01/27/2022 PM EDT 12:13 PM EDT Beck Sanz MD POINT OF CARE TEST ORDERABLE S Performing Organization Address City/State/ZIP [place] [address] (ABNORMAL) BLOOD GAS 2 VENOUS (01/27/2022 12:11 PM EDT) Analysis Performed At Patho logist Time Signature pH Honorio 7.41 7.32 - [facility] 7.42 [facility] pCO2 Honorio 42 41 - 51 [facility] LABORATORY pO2 Honorio 34 25 - 40 [facility] LABORATORY HCO3 Honorio 25.7 mmol/L [facility] BE Honorio 1.1 mmol/L [facility] Hgb Blood Gas 13.1 (L) 13.7 - [facility] 16.5 g/dL [facility] O2HB Honorio 70.3 % [facility] COHB Honorio 1.0 % [facility] Comment: Nonsmokers: 0.5-1.5% COHB Smokers: Variable, but usually less than 10% Toxic: 20-30% COHB Lethal: Greater than 60% COHB METHB Honorio 0.2 <=1.5 % [facility] Na Whole Blood 130 (L) 135 - 145 mmol/L [facility] K Whole Blood 4.3 3.5 - 5.0 mmol/L [facility] Comment: Please note: Patients with WBC >100,000 may have falsely elevated Potassium levels. Contact the Clinical Chemistry L aboratory if there are any questions. ICa Whole Blood 1.13 (L) 1.15 - 1.33 mmol/L [facility] Comment: Note: ??Total bilirubin higher than 20 m g/dL may lead to falsely low ionized calcium. CL Whole Blood 102 98 - 107 mmol/L [facility] Gluc Whole Bld 127 65 - 199 mg/dL [facility] Comment: Diabetes: >=200 mg/dL plus symp toms Lactate WB 1.1 0.5 - 2.2 mmol/L [facility] FIO2 Honorio 21 % [facility] BGas Source Venous [facility] Specimen Anatomical Collection Method Collection Time Receive d Time (Source) Location / / Volume Laterality Blood 01/27/2022 12:11 01/27/2022 PM EDT 12:11 PM EDT Beck Sanz MD CHEMISTRY ORDERABLES Performing Organization Address City/[facility]/ZIP Code Phon e Number [address] (ABNORMAL) Creatinine (01/27/2022 12:05 PM EDT) Analysis Performed At Patho logist Time Signature Creatinine 2.06 (H) 0.80 - [facility] 1.50 mg/dL [facility] Estimated GFR 44 (L) >=60 [facility]ANDO mL/min/1.[address] LABORATORY Comment: This patient's estimated GFR was [...] (Source) Location / / Volume Laterality Blood 01/27/2022 12:05 01/27/2022 PM EDT 12:25 PM EDT Resulting Agency Comment Spec In Lab Angelina Reynoso MD CHEMISTRY ORDERABLES Performing Organization Address City/[facility]/ZIP Code Phon e Number [address] Scan, Peripheral Blood (01/27/2022 10:22 AM EDT) [facility] Sajan Method Time Signature Plat Estimate Decreased [facility] RBC Morphology Normal [facility] Specimen Anatomical Collection Method Collection Time Receive d Time (Source) Location / / Volume Laterality Blood 01/27/2022 10:22 01/27/2022 AM EDT 10:38 AM EDT Resulting Agency Comment Spec In Lab Cristina Hillman LEVELER HELPER HEMATOLOGY ORDERABLES Performing Organization Address City/State/ZIP [place] [address] (ABNORMAL) Differential, Automated (01/27/2022 10:22 AM EDT) [facility] Sajan Method Time Signature Neutrophils % 61.9 % [facility] Neutr Abs (ANC) 11.72 (H) 1.70 - [facility] 6.10 [facility] x10(3)/[facility] LABORATORY Lymphocytes % 7.8 % [facility] Lymphocytes Abs 1.5 0.9 - 3.2 [facility] x10(3)/[facility] LABORATORY Monocytes % 5.6 % [facility] Monocyte Abs 1.1 (H) 0.3 - 0.9 [facility] x10(3)/[facility] LABORATORY Eosinophils % 1.1 % [facility] Eosinophils Abs 0.2 0.0 - 0.4 [facility] x10(3)/[facility] LABORATORY Basophils % 0.1 % [facility] Basophils Abs 0.0 0.0 - 0.1 [facility] x10(3)/[facility] LABORATORY Immature Gran % 23.50 % [facility] Comment: Immature granulocytes(IG's)percentage an d absolute count will include metamyelocytes, myelocytes, and promyelo cytes. Blood smears from CBCs yielding IG's will be scanned manually for concor dance. If this scan disagrees with the automated IG or if promyelocytes are not ed, a manual differential will be performed. Gemini Gran Abs 4.45 (H) 0.00 - 0.04 x10(3)/[facility] LABORATORY Specimen Anatomical Collection Method Collection Time Receive d Time (Source) Location / / Volume Laterality Blood 01/27/2022 10:22 01/27/2022 AM EDT 10:38 AM EDT Resulting Agency Comment Spec In Lab Jaquelinma Sal Tong[place] LEVELER HELPER HEMATOLOGY ORDERABLES Performing Organization Address City/State/Z[place] [address] (ABNORMAL) Hemogram (01/27/2022 10:22 AM EDT) [facility] gist Method Time Signature WBC 18.9 (H) 4.0 - 9.5 [facility] x10(3)/[facility] LABORATORY RBC 3.61 (L) 4.58 [facility] x10(6)/[facility] LABORATORY Hemoglobin 11.6 (L) 13.7 - [facility] 16.5 g/dL [facility] Hematocrit 34.2 (L) 40.5 - [facility] 48.5 % [facility] MCV 94.7 (H) 82.9 - [facility] 93.1 [facility] LABORATORY MCH 32.1 27.5 - [facility]1 pg [facility] MCHC 33.9 32.0 - [facility] 35[facility] g/dL [facility] Platelets 100 (L) 145 - 357 [facility] x10(3)/[facility] LABORATORY RDWSD 43.3 36.0 - [facility] 45.0 [facility] LABORATORY RDWCV 12.6 11.4 - [facility] 13.8 % [facility] MPV 10.6 7.6 - 12.9 [facility] LABORATORY nRBC % Auto 0.1 % [facility] nRBC Abs Auto 0.020 (H) 0.000 - [facility] MANDO 0.000 [facility] x10(3)/[facility] LABORATORY Specimen Anatomical Collection Method Collection Time Receive d Time (Source) Location / / Volume Laterality Blood 01/27/2022 10:22 01/27/2022 AM EDT 10:38 AM EDT Resulting Agency Comment Spec In Lab Gemma B Pentland LEVELER HELPER HEMATOLOGY ORDERABLES Performing Organization Address City/State/Z[place] [address] POCT Glucose (01/27/2022 8:30 AM EDT) athologist Signature POC Glucose 103 65 - 199 [facility] mg/dL [facility] Comment: Supplemental ranges: <140 mg/dL before meals <180 mg/dL all other times of the day Specimen Anatomical Collection Method Collection Time Receive d Time (Source) Location / / Volume Laterality Blood 01/27/2022 8:30 AM 8:30 EDT AM EDT Beck Sanz MD POINT OF CARE TEST ORDERABLE S Performing Organization Address City/State/[place] [address] (ABNORMAL) Blood Gas Venous ([facility]) (01/27/2022 5:36 AM EDT) athologist Signature pH Honorio 7.37 7.32 - [facility] 7.42 [facility] pCO2 Honorio 47 41 - 51 [facility] LABORATORY pO2 Honorio 33 25 - 40 [facility] LABORATORY HCO3 Honorio 26.4 mmol/L [facility] BE Honorio 1.2 mmol/L [facility] Hgb Blood Gas 16.1 13.7 - [facility] 16.5 g/dL [facility] O2HB Honorio 66.2 % [facility] COHB Honorio 1.5 % [facility] Comment: Nonsmokers: 0.5-1.5% COHB Smokers: Variable, but usually less than 10% Toxic: 20-30% COHB Lethal: Greater than 60% COHB METHB Honorio 0.3 <=1.5 % [facility] Na Whole Blood 133 (L) 135 - 145 mmol/L [facility] K Whole Blood 4.4 3.5 - 5.0 mmol/L [facility] Comment: Please note: Patients with WBC >100,000 may have falsely elevated Potassium levels. Contact the Clinical Chemistry L aboratory if there are any questions. ICa Whole Blood 1.14 (L) 1.15 - 1.33 mmol/L [facility] Comment: Note: ??Total bilirubin higher than 20 m g/dL may lead to falsely low ionized calcium. CL Whole Blood 102 98 - 107 mmol/L [facility] Gluc Whole Bld 106 65 - 199 mg/dL [facility] Comment: Diabetes: >=200 mg/dL plus symp toms Lactate WB 1.2 0.5 - 2.2 mmol/L [facility] BGas Source Venous [facility] Specimen Anatomical Collection Method Collection Time Receive d Time (Source) Location / / Volume Laterality Blood Venous Draw / 01/27/2022 5:36 AM 01/28/20 22 5:45 Unknown EDT AM EDT Resulting Agency Comment Spec In Lab Angelina Reynoso MD CHEMISTRY ORDERABLES Performing Organization Address City/State/Z[place] [address] (ABNORMAL) CK (01/27/2022 5:36 AM EDT) P athologist Signature CK, Total 21,662 (H) 0 - 200 [facility] unit/[facility] Specimen Anatomical Collection Method Collection Time Receive d Time (Source) Location / / Volume Laterality Blood 01/27/2022 5:36 AM 2 5:43 EDT AM EDT Resulting Agency Comment Spec In Lab Cristina Hillman APRN CHEMISTRY ORDERABLES Performing Organization Address City/[facility]/Z[place] [address] (ABNORMAL) Blood Gas Venous ([facility]) (01/27/2022 1:25 AM EDT) Analysis Performed At Patho logist Time Signature pH Honorio 7.44 (H) 7.32 - [facility] 7.42 [facility] pCO2 Honorio 39 (L) 41 - 51 [facility] LABORATORY pO2 Honorio 36 25 - 40 [facility] LABORATORY HCO3 Honorio 25.9 mmol/L [facility] BE Honorio 1.6 mmol/L [facility] Hgb Blood Gas 11.8 (L) 13.7 - [facility] 16.5 g/dL [facility] O2HB Honorio 73.6 % [facility] COHB Honorio 0.6 % [facility] Comment: Nonsmokers: 0.5-1.5% COHB Smokers: Variable, but usually less than 10% Toxic: 20-30% COHB Lethal: Greater than 60% COHB METHB Honorio 0.0 <=1.5 % [facility] Na Whole Blood 132 (L) 135 - 145 mmol/L [facility] K Whole Blood 4.3 3.5 - 5.0 mmol/L [facility] Comment: Please note: Patients with WBC >100,000 may have falsely elevated Potassium levels. Contact the Clinical Chemistry L aboratory if there are any questions. ICa Whole Blood 1.11 (L) 1.15 - 1.33 mmol/L [facility] Comment: Note: ??Total bilirubin higher than 20 m g/dL may lead to falsely low ionized calcium. CL Whole Blood 104 98 - 107 mmol/L [facility] Gluc Whole Bld 108 65 - 199 mg/dL [facility] Comment: Diabetes: >=200 mg/dL plus symp toms Lactate WB 1.6 0.5 - 2.2 mmol/L [facility] BGas Source Venous [facility] Specimen Anatomical Collection Method Collection Time Receive d Time (Source) Location / / Volume Laterality Blood Venous Draw / 01/27/2022 1:25 AM 01/28/20 22 1:31 Unknown EDT AM EDT Resulting Agency Comment Spec In Lab Angelina Reynoso MD CHEMISTRY ORDERABLES Performing Organization Address City/State/Z[place] [address] (ABNORMAL) CK (01/27/2022 1:25 AM EDT) athologist Signature CK, Total 22,236 (H) 0 - 200 [facility] unit/L [facility] Specimen Anatomical Collection Method Collection Time Receive d Time (Source) Location / / Volume Laterality Blood 01/27/2022 1:25 AM 2 1:30 EDT AM EDT Resulting Agency Comment Spec In Lab Aupix B Hele Massage LEVELER HELPER CHEMISTRY ORDERABLES Performing Organization Address City/[facility]/[place] [address] (ABNORMAL) Hepatic Function Panel (01/27/2022 1:25 AM EDT) P athologist Signature Total Protein 4.3 (L) 6.1 - 8.0 [facility] g/dL [facility] Albumin 2.1 (L) 3.2 - 5.2 [facility] g/dL [facility] AST 618 (H) 0 - 39 [facility]O unit/L [facility] ALT 418 (H) 0 - 55 [facility] unit/L [facility] Alk Phos 82 40 - 130 [facility] [employer] unit/L [facility] Total 0.9 0.2 - 1.3 [facility] Bilirubin mg/dL [facility] Bili, Direct 0.8 (H) 0.0 - 0.3 [facility] mg/dL [facility] Specimen Anatomical Collection Method Collection Time Receive d Time (Source) Location / / Volume Laterality Blood 01/27/2022 1:25 AM 2 1:30 EDT AM EDT Resulting Agency Comment Spec In Lab Aupix B Pentland LEVELER HELPER CHEMISTRY ORDERABLES Performing Organization Address City/[facility]/Z[place] [address] (ABNORMAL) Basic Metabolic Panel (non-fasting) (01/27/2022 1:25 AM EDT) P athologist Signature Glucose Lvl 112 65 - 199 [facility] mg/dL [facility] Comment: Diabetes: >=200 mg/dL plus symp toms BUN 21 (H) 10 - 20 mg/dL [facility] Creatinine 2.12 (H) 0.80 - 1.50 mg/dL [facility] Sodium 135 135 - 145 mmol/L [facility] Potassium 4.4 3.5 - 5.0 mmol/L [facility] Comment: Please note: ??Patients with WBC >100,00 0 may have falsely elevated Potassium levels. ??For accurate Potassium quantif ication in these patients send serum separator tube (gold top) for subsequent determinations. ??Contact the Clinical Chemistry Laboratory if there are any qu estions. Chloride 104 98 - 107 mmol/L [facility] CO2 25 22 - 31 mmol/L [facility] Anion Gap 6 5 - 15 mmol/L [facility] Calcium 7.7 (L) 8.5 - 10.5 mg/dL [facility] Estimated GFR 42 (L) >=60 mL/min/1.73 m?? [facility] Comment: This patient's estimated GFR [...] (Source) Location / / Volume Laterality Blood 01/27/2022 1:25 AM 2 1:30 EDT AM EDT Resulting Agency Comment Spec In Lab Dnuia Han DO CHEMISTRY ORDERABLES Performing Organization Address City/State/Z[place] [address] (ABNORMAL) Phosphorus (01/27/2022 1:25 AM EDT) P athologist Signature Phosphorus 1.6 (L) 2.5 - 4.5 [facility] mg/dL [facility] Specimen Anatomical Collection Method Collection Time Receive d Time (Source) Location / / Volume Laterality Blood 01/27/2022 1:25 AM 2 1:30 EDT AM EDT Resulting Agency Comment Spec In Lab Gela Novak MD CHEMISTRY ORDERABLES Performing Organization Address City/State/ZIP Code Phon e Number [address] Magnesium (01/27/2022 1:25 AM EDT) P athologist Signature Magnesium 0.72 0.69 - 1.07 [facility]/L [facility] Specimen Anatomical Collection Method Collection Time Receive d Time (Source) Location / / Volume Laterality Blood 01/27/2022 1:25 AM 2 1:30 EDT AM EDT Resulting Agency Comment Spec In Lab Gela Novak MD CHEMISTRY ORDERABLES Performing Organization Address City/[facility]/ZIP Code Phon e Number [address] POCT Glucose (01/26/2022 8:59 PM EDT) P athologist Signature POC Glucose 83 65 - 199 [facility] mg/dL [facility] Comment: Supplemental ranges: <140 mg/dL before meals <180 mg/dL all other times of the day Specimen Anatomical Collection Method Collection Time Receive d Time (Source) Location / / Volume Laterality Blood 01/26/2022 8:59 PM 2 8:59 EDT PM EDT Beck Sanz MD POINT OF CARE TEST ORDERABLE S Performing Organization Address City/State/[place] [address] (ABNORMAL) Blood Gas Venous (NLH) (01/26/2022 6:19 PM EDT) Analysis Performed At Patho logist Time Signature pH Honorio 7.34 7.32 - [facility] 7.42 [facility] pCO2 Honorio 48 41 - 51 [facility] LABORATORY pO2 Honorio 32 25 - 40 [facility] LABORATORY HCO3 Honorio 25.4 mmol/L [facility] BE Honorio -0.3 mmol/L [facility] Hgb Blood Gas 12.0 (L) 13.7 - [facility] 16.5 g/dL [facility] O2HB Honorio 59.2 % [facility] COHB Honorio 1.1 % [facility] Comment: Nonsmokers: 0.5-1.5% COHB Smokers: Variable, but usually less than 10% Toxic: 20-30% COHB Lethal: Greater than 60% COHB METHB Honorio 0.3 <=1.5 % [facility] Na Whole Blood 131 (L) 135 - 145 mmol/L [facility] K Whole Blood 4.1 3.5 - 5.0 mmol/L [facility] Comment: Please note: Patients with WBC >100,000 may have falsely elevated Potassium levels. Contact the Clinical Chemistry L aboratory if there are any questions. ICa Whole Blood 1.12 (L) 1.15 - 1.33 mmol/L [facility] Comment: Note: ??Total bilirubin higher than 20 m g/dL may lead to falsely low ionized calcium. CL Whole Blood 104 98 - 107 mmol/L [facility] Gluc Whole Bld 127 65 - 199 mg/dL [facility] Comment: Diabetes: >=200 mg/dL plus symp toms Lactate WB 1.5 0.5 - 2.2 mmol/L [facility] BGas Source Venous [facility] Specimen Anatomical Collection Method Collection Time Receive d Time (Source) Location / / Volume Laterality Blood Venous Draw / 01/26/2022 6:19 PM 01/27/20 22 6:32 Unknown EDT PM EDT Resulting Agency Comment Spec In Lab Angelina Reynoso MD CHEMISTRY ORDERABLES Performing Organization Address City/State/ZIP [place] [address] (ABNORMAL) CK (01/26/2022 6:19 PM EDT) athologist Signature CK, Total 21,834 (H) 0 - 200 [facility]L [facility] Specimen Anatomical Collection Method Collection Time Receive d Time (Source) Location / / Volume Laterality Blood 01/26/2022 6:19 PM 2 6:31 EDT PM EDT Resulting Agency Comment Spec In Lab Cristina Hillman APRN CHEMISTRY ORDERABLES Performing Organization Address City/[facility]/ZIP Code Phon e Number [address] POCT Glucose (01/26/2022 6:03 PM EDT) athologist Signature POC Glucose 108 65 - 199 [facility] mg/dL [facility] Comment: Supplemental ranges: <140 mg/dL before meals <180 mg/dL all other times of the day Specimen Anatomical Collection Method Collection Time Receive d Time (Source) Location / / Volume Laterality Blood 01/26/2022 6:03 PM 2 6:03 EDT PM EDT Beck Sanz MD POINT OF CARE TEST ORDERABLE S Performing Organization Address City/State/ZIP Code Phon e Number [address] POCT Glucose (01/26/2022 4:31 PM EDT) athologist Signature POC Glucose 112 65 - 199 [facility] mg/dL [facility] Comment: Supplemental ranges: <140 mg/dL before meals <180 mg/dL all other times of the day Specimen Anatomical Collection Method Collection Time Receive d Time (Source) Location / / Volume Laterality Blood 01/26/2022 4:31 PM 2 4:31 EDT PM EDT Beck Sanz MD POINT OF CARE TEST ORDERABLE S Performing Organization Address City/State/ZIP Code Phon e Number [address] POCT Glucose (01/26/2022 2:00 PM EDT) athologist Signature POC Glucose 89 65 - 199 [facility] M[facility] mg/dL [facility] Comment: Supplemental ranges: <140 mg/dL before meals <180 mg/dL all other times of the day Specimen Anatomical Collection Method Collection Time Receive d Time (Source) Location / / Volume Laterality Blood 01/26/2022 2:00 PM 2:00 EDT PM EDT Beck Sanz MD POINT OF CARE TEST ORDERABLE S Performing Organization Address City/State/ZIP [place] [address] (ABNORMAL) BLOOD GAS 2 VENOUS (01/26/2022 12:23 PM EDT) Analysis Performed At Patho logist Time Signature pH Honorio 7.42 7.32 - [facility] 7.42 [facility] pCO2 Honorio 40 (L) 41 - 51 [facility] LABORATORY pO2 Honorio 33 25 - 40 [facility] LABORATORY HCO3 Honorio 25.4 mmol/L [facility] BE Honorio 1.0 mmol/L [facility] Hgb Blood Gas 12.1 (L) 13.7 - [facility] 16.5 g/dL [facility] O2HB Honorio 65.4 % [facility] COHB Honorio 0.7 % [facility] Comment: Nonsmokers: 0.5-1.5% COHB Smokers: Variable, but usually less than 10% Toxic: 20-30% COHB Lethal: Greater than 60% COHB METHB Honorio 0.1 <=1.5 % [facility] Na Whole Blood 130 (L) 135 - 145 mmol/L [facility] K Whole Blood 3.8 3.5 - 5.0 mmol/L [facility] Comment: Please note: Patients with WBC >100,000 may have falsely elevated Potassium levels. Contact the Clinical Chemistry L aboratory if there are any questions. ICa Whole Blood 1.16 1.15 - 1.33 mmol/L [facility] Comment: Note: ??Total bilirubin higher than 20 m g/dL may lead to falsely low ionized calcium. CL Whole Blood 102 98 - 107 mmol/L [facility] Gluc Whole Bld 115 65 - 199 mg/dL [facility] Comment: Diabetes: >=200 mg/dL plus symp toms Lactate WB 0.9 0.5 - 2.2 mmol/L [facility] FIO2 Honorio 21 % [facility] BGas Source Central Venous [facility] Specimen Anatomical Collection Method Collection Time Receive d Time (Source) Location / / Volume Laterality Blood 01/26/2022 12:23 01/26/2022 PM EDT 12:23 PM EDT Beck Sanz MD CHEMISTRY ORDERABLES Performing Organization Address City/State/[place] [address] (ABNORMAL) CK (01/26/2022 12:22 PM EDT) athologist Signature CK, Total 25,802 (H) 0 - 200 [facility] unit/[facility]ORY Specimen Anatomical Collection Method Collection Time Receive d Time (Source) Location / / Volume Laterality Blood 01/26/2022 12:22 01/26/2022 PM EDT 12:29 PM EDT Resulting Agency Comment Spec In Lab Cristina Hillman APRN CHEMISTRY ORDERABLES Performing Organization Address City/State/Z[place] [address] POCT Glucose (01/26/2022 12:05 PM EDT) athologist Signature POC Glucose 79 65 - 199 [facility] mg/dL [facility] Comment: Supplemental ranges: <140 mg/dL before meals <180 mg/dL all other times of the day Specimen Anatomical Collection Method Collection Time Receive d Time (Source) Location / / Volume Laterality Blood 01/26/2022 12:05 01/26/2022 PM EDT 12:05 PM EDT Beck Sanz MD POINT OF CARE TEST ORDERABLE S Performing Organization Address City/State/Z[place] [address] POCT Glucose (01/26/2022 11:08 AM EDT) athologist Signature POC Glucose 82 65 - 199 [facility] mg/dL [facility] Comment: Supplemental ranges: <140 mg/dL before meals <180 mg/dL all other times of the day Specimen Anatomical Collection Method Collection Time Receive d Time (Source) Location / / Volume Laterality Blood 01/26/2022 11:08 01/26/2022 AM EDT 11:08 AM EDT Beck Sanz MD POINT OF CARE TEST ORDERABLE S Performing Organization Address City/State/[place] [address] (ABNORMAL) POCT Glucose (01/26/2022 10:15 AM EDT) athologist Signature POC Glucose 59 (L) 65 - 199 [place] [place] mg/dL [facility] Comment: Supplemental ranges: <140 mg/dL before meals <180 mg/dL all other times of the day Specimen Anatomical Collection Method Collection Time Receive d Time (Source) Location / / Volume Laterality Blood 01/26/2022 10:15 01/26/2022 AM EDT 10:15 AM EDT Beck Sanz MD POINT OF CARE TEST ORDERABLE S Performing Organization Address City/State/Z[place] [address] POCT Glucose (01/26/2022 8:58 AM EDT) athologist Signature POC Glucose 75 65 - 199 [facility] mg/dL [facility] Comment: Supplemental ranges: <140 mg/dL before meals <180 mg/dL all other times of the day Specimen Anatomical Collection Method Collection Time Receive d Time (Source) Location / / Volume Laterality Blood 01/26/2022 8:58 AM 8:58 EDT AM EDT Beck Sanz MD POINT OF CARE TEST ORDERABLE S Performing Organization Address City/State/[place] [address] (ABNORMAL) POCT Glucose (01/26/2022 8:20 AM EDT) athologist Signature POC Glucose 49 65 - 199 [facility] (Critical) mg/dL [facility] Comment: Supplemental ranges: <140 mg/dL before meals <180 mg/dL all other times of the day Specimen Anatomical Collection Method Collection Time Receive d Time (Source) Location / / Volume Laterality Blood 01/26/2022 8:20 AM 2 8:20 EDT AM EDT Beck Sanz MD POINT OF CARE TEST ORDERABLE S Performing Organization Address City/State/[place] [address] (ABNORMAL) CK (01/26/2022 6:15 AM EDT) P athologist Signature CK, Total 27,357 (H) 0 - 200 [facility] unit/L [facility] Specimen Anatomical Collection Method Collection Time Receive d Time (Source) Location / / Volume Laterality Blood 01/26/2022 6:15 AM 2 6:21 EDT AM EDT Resulting Agency Comment Spec In Lab Cristina Hillman APRN CHEMISTRY ORDERABLES Performing Organization Address City/State/Z[place] [address] (ABNORMAL) BLOOD GAS 2 VENOUS (01/26/2022 5:59 AM EDT) Analysis Performed At Patho logist Time Signature pH Honorio 7.40 7.32 - [facility] 7.42 [facility] pCO2 Honorio 42 41 - 51 [facility] LABORATORY pO2 Honorio 32 25 - 40 [facility] LABORATORY HCO3 Honorio 25.9 mmol/L [facility] BE Honorio 1.1 mmol/L [facility] Hgb Blood Gas 12.5 (L) 13.7 - [facility] 16.5 g/dL [facility] O2HB Honorio 62.3 % [facility] COHB Honorio 0.6 % [facility] Comment: Nonsmokers: 0.5-1.5% COHB Smokers: Variable, but usually less than 10% Toxic: 20-30% COHB Lethal: Greater than 60% COHB METHB Honorio 0.2 <=1.5 % [facility] Na Whole Blood 132 (L) 135 - 145 mmol/L [facility] K Whole Blood 4.0 3.5 - 5.0 mmol/L [facility] Comment: Please note: Patients with WBC >100,000 may have falsely elevated Potassium levels. Contact the Clinical Chemistry L aboratory if there are any questions. ICa Whole Blood 1.18 1.15 - 1.33 mmol/L [facility] Comment: Note: ??Total bilirubin higher than 20 m g/dL may lead to falsely low ionized calcium. CL Whole Blood 103 98 - 107 mmol/L [facility] Gluc Whole Bld 95 65 - 199 mg/dL [facility] Comment: Diabetes: >=200 mg/dL plus symp toms Lactate WB 1.0 0.5 - 2.2 mmol/L [facility] FIO2 Honorio 21 % [facility] BGas Source Venous [facility] Specimen Anatomical Collection Method Collection Time Receive d Time (Source) Location / / Volume Laterality Blood 01/26/2022 5:59 AM 2 5:59 EDT AM EDT Beck Sanz MD CHEMISTRY ORDERABLES Performing Organization Address City/State/Z[place] [address] POCT Glucose (01/26/2022 5:09 AM EDT) P athologist Signature POC Glucose 103 65 - 199 [facility] mg/dL [facility] Comment: Supplemental ranges: <140 mg/dL before meals <180 mg/dL all other times of the day Specimen Anatomical Collection Method Collection Time Receive d Time (Source) Location / / Volume Laterality Blood 01/26/2022 5:09 AM 2 5:09 EDT AM EDT Beck Sanz MD POINT OF CARE TEST ORDERABLE S Performing Organization Address City/State/[place] [address] (ABNORMAL) POCT Glucose (01/26/2022 4:21 AM EDT) athologist Signature POC Glucose 61 (L) 65 - 199 [facility] mg/dL [facility] Comment: Supplemental ranges: <140 mg/dL before meals <180 mg/dL all other times of the day Specimen Anatomical Collection Method Collection Time Receive d Time (Source) Location / / Volume Laterality Blood 01/26/2022 4:21 AM 2 4:21 EDT AM EDT Beck Sanz MD POINT OF CARE TEST ORDERABLE S Performing Organization Address City/State/ZIP [place] [address] (ABNORMAL) BLOOD GAS 2 VENOUS (01/26/2022 12:26 AM EDT) athologist Signature pH Honorio 7.38 7.32 - [facility] 7.42 [facility] pCO2 Honorio 47 41 - 51 [facility] LABORATORY pO2 Honorio 32 25 - 40 [facility]ORATORY HCO3 Honorio 27.4 mmol/L [facility] BE Honorio 2.3 mmol/L [facility] Hgb Blood Gas 13.7 13.7 - [facility] 16.5 g/dL [facility] O2HB Honorio 60.6 % [facility] COHB Honorio 0.8 % [facility] Comment: Nonsmokers: 0.5-1.5% COHB Smokers: Variable, but usually less than 10% Toxic: 20-30% COHB Lethal: Greater than 60% COHB METHB Honorio 0.0 <=1.5 % [facility] Na Whole Blood 133 (L) 135 - 145 mmol/L [facility] K Whole Blood 4.3 3.5 - 5.0 mmol/L [facility] Comment: Please note: Patients with WBC >100,000 may have falsely elevated Potassium levels. Contact the Clinical Chemistry L aboratory if there are any questions. ICa Whole Blood 1.17 1.15 - 1.33 mmol/L [facility] Comment: Note: ??Total bilirubin higher than 20 m g/dL may lead to falsely low ionized calcium. CL Whole Blood 103 98 - 107 mmol/L [facility] Gluc Whole Bld 101 65 - 199 mg/dL [facility] Comment: Diabetes: >=200 mg/dL plus symp toms Lactate WB 1.3 0.5 - 2.2 mmol/L [facility] FIO2 Honorio 21 % [facility] BGas Source Venous [facility] Specimen Anatomical Collection Method Collection Time Receive d Time (Source) Location / / Volume Laterality Blood 01/26/2022 12:26 01/26/2022 AM EDT 12:26 AM EDT Beck Sanz MD CHEMISTRY ORDERABLES Performing Organization Address City/[facility]/[place] [address] Scan, Peripheral Blood (01/26/2022 12:20 AM EDT) [facility] Method Time Signature Plat Estimate Decreased [facility] RBC Morphology Abnormal [facility] Polychromasia Present >5/HPF [facility] Pappenheimer Bdy Present >1/HPF [facility] Specimen Anatomical Collection Method Collection Time Receive d Time (Source) Location / / Volume Laterality Blood 01/26/2022 12:20 01/26/2022 AM EDT 12:29 AM EDT Resulting Agency Comment Spec In Lab Cristina Hillman APRN HEMATOLOGY ORDERABLES Performing Organization Address City/[facility]/Z[place] [address] (ABNORMAL) Differential, Automated (01/26/2022 12:20 AM EDT) Jobzella Method Time Signature Neutrophils % 69.3 % [facility] Neutr Abs (ANC) 8.94 (H) 1.70 - [facility] 6.10 [facility] x10(3)/[facility] L LABORATORY Lymphocytes % 13.7 % [facility] Lymphocytes Abs 1.8 0.9 - 3.2 [facility] x10(3)/[facility] LABORATORY Monocytes % 5.7 % [facility] Monocyte Abs 0.7 0.3 - 0.9 [facility] x10(3)/[facility] LABORATORY Eosinophils % 2.0 % [facility] Eosinophils Abs 0.3 0.0 - 0.4 [facility] x10(3)/[facility] LABORATORY Basophils % 0.1 % [facility] Basophils Abs 0.0 0.0 - 0.1 [facility] x10(3)/[facility] LABORATORY Immature Gran % 9.20 % [facility] Comment: Immature granulocytes(IG's)percentage an d absolute count will include metamyelocytes, myelocytes, and promyelo cytes. Blood smears from CBCs yielding IG's will be scanned manually for concor dance. If this scan disagrees with the automated IG or if promyelocytes are not ed, a manual differential will be performed. Gemiin Gran Abs 1.19 (H) 0.00 - 0.04 x10(3)/[facility] LABORATORY Specimen Anatomical Collection Method Collection Time Receive d Time (Source) Location / / Volume Laterality Blood 01/26/2022 12:20 01/26/2022 AM EDT 12:29 AM EDT Resulting Agency Comment Spec In Lab Cristina Hillman LEVELER HELPER HEMATOLOGY ORDERABLES Performing Organization Address City/State/Z[place] [address] (ABNORMAL) Hemogram (01/26/2022 12:20 AM EDT) [facility] gist Method Time Signature WBC 12.9 (H) 4.0 - 9.5 [facility] x10(3)/[facility] LABORATORY RBC 3.53 (L) 4.58 - [facility] 5.54 [facility] x10(6)/[facility] LABORATORY Hemoglobin 11.5 (L) 13.7 - [facility] Hematocrit 33.2 (L) 40.5 - [facility] 48.5 % [facility] MCV 94.1 (H) 82.9 - [facility]ELASQUEZMANDO 93.1 [facility] LABORATORY MCH 32.6 (H) 27.5 - [facility] 32.1 pg [facility] MCHC 34.6 32.0 - [facility] 35.7 g/dL [facility] Platelets 115 (L) 145 - 357 [facility] LABORATORY RDWSD 43.1 36.0 - [facility] VELASQUEZMANDO 45.0 [facility] LABORATORY RDWCV 12.4 11.4 - [facility] 13.8 % [facility] MPV 10.6 7.6 - 12.9 [facility] MANDO [facility] LABORATORY nRBC % Auto 0.2 % [facility] nRBC Abs Auto 0.020 (H) 0.000 - [facility] 0.000 [facility] x10(3)/[facility] LABORATORY Specimen Anatomical Collection Method Collection Time Receive d Time (Source) Location / / Volume Laterality Blood 01/26/2022 12:20 01/26/2022 AM EDT 12:29 AM EDT Resulting Agency Comment Spec In Lab Cristina Hillman APRN HEMATOLOGY ORDERABLES Performing Organization Address City/State/ZIP [place] [address] (ABNORMAL) Hepatic Function Panel (01/26/2022 12:20 AM EDT) P athologist Signature Total Protein 4.5 (L) 6.1 - 8.0 [facility] g/dL [facility] Albumin 2.3 (L) 3.2 - 5.2 [facility] g/dL [facility] AST 710 (H) 0 - 39 [facility] unit/L [facility] ALT 591 (H) 0 - 55 [facility] unit/L [facility] Alk Phos 56 40 - 130 [facility] unit/L [facility] Total 0.4 0.2 - 1.3 [facility] Bilirubin mg/dL [facility] Bili, Direct 0.2 0.0 - 0.3 [facility] mg/dL [facility] Specimen Anatomical Collection Method Collection Time Receive d Time (Source) Location / / Volume Laterality Blood 01/26/2022 12:20 01/26/2022 AM EDT 12:29 AM EDT Resulting Agency Comment Spec In Lab Cristina Huang Rafy AVENDAÑO CHEMISTRY ORDERABLES Performing Organization Address City/State/ZIP [place] [address] (ABNORMAL) Basic Metabolic Panel (non-fasting) (01/26/2022 12:20 AM EDT) athologist Signature Glucose Lvl 104 65 - 199 [facility] mg/dL [facility] Comment: Diabetes: >=200 mg/dL plus symp toms BUN 26 (H) 10 - 20 mg/dL [facility] Creatinine 1.89 (H) 0.80 - 1.50 mg/dL [facility] Sodium 137 135 - 145 mmol/L [facility]OR[facility]ORY Potassium 4.6 3.5 - 5.0 mmol/L [facility] Comment: Please note: ??Patients with WBC >100,00 0 may have falsely elevated Potassium levels. ??For accurate Potassium quantif ication in these patients send serum separator tube (gold top) for subsequent determinations. ??Contact the Clinical Chemistry Laboratory if there are any qu estions. Chloride 103 98 - 107 mmol/L [facility] CO2 27 22 - 31 mmol/L [facility] Anion Gap 7 5 - 15 mmol/L [facility] Calcium 8.3 (L) 8.5 - 10.5 mg/dL [facility]OR[facility]ORY Estimated GFR 48 (L) >=60 mL/min/1.73 m?? [facility] Comment: This patient's estimated GFR [...] Han DO CHEMISTRY ORDERABLES Performing Organization Address City/[facility]/ZIP Code Phon e Number [address] Phosphorus (01/26/2022 12:20 AM EDT) P athologist Signature Phosphorus 3.0 2.5 - 4.5 [facility] mg/dL [facility] Specimen Anatomical Collection Method Collection Time Receive d Time (Source) Location / / Volume Laterality Blood 01/26/2022 12:20 01/26/2022 AM EDT 12:29 AM EDT Resulting Agency Comment Spec In Lab Gela Novak MD CHEMISTRY ORDERABLES Performing Organization Address City/[facility]/ZIP Code Phon e Number [address] Magnesium (01/26/2022 12:20 AM EDT) P athologist Signature Magnesium 0.85 0.69 - 1.07 [facility] mmol/L [facility] Specimen Anatomical Collection Method Collection Time Receive d Time (Source) Location / / Volume Laterality Blood 01/26/2022 12:20 01/26/2022 AM EDT 12:29 AM EDT Resulting Agency Comment Spec In Lab Gela Novak MD CHEMISTRY ORDERABLES Performing Organization Address City/[facility]/ZIP Code Phon e Number [address] Triglyceride (01/26/2022 12:20 AM EDT) P athologist Signature Triglycerides 359 mg/dL [facility] Comment: Average Risk/Lower Risk: <150 mg/dL Borderline High Risk: 150-199 mg/dL High Risk: 200-499 mg/dL Very High Risk: >fu=150 mg/dL Specimen Anatomical Collection Method Collection Time Receive d Time (Source) Location / / Volume Laterality Blood 01/26/2022 12:20 01/26/2022 AM EDT 12:29 AM EDT Resulting Agency Comment Spec In Lab Beck Sanz MD CHEMISTRY ORDERABLES Performing Organization Address City/[facility]/ZIP Code Phon e Number [address] POCT Glucose (01/26/2022 12:01 AM EDT) athologist Signature POC Glucose 94 65 - 199 [facility] Comment: Supplemental ranges: <140 mg/dL before meals <180 mg/dL all other times of the day Specimen Anatomical Collection Method Collection Time Receive d Time (Source) Location / / Volume Laterality Blood 01/26/2022 12:01 01/26/2022 AM EDT 12:01 AM EDT Beck Sanz MD POINT OF CARE TEST ORDERABLE S Performing Organization Address City/State/ZIP Code Phon e Number [address] POCT Glucose (01/25/2022 8:08 PM EDT) athologist Signature POC Glucose 101 65 - 199 [facility] Comment: Supplemental ranges: <140 mg/dL before meals <180 mg/dL all other times of the day Specimen Anatomical Collection Method Collection Time Receive d Time (Source) Location / / Volume Laterality Blood 01/25/2022 8:08 PM 8:08 EDT PM EDT Beck Sanz MD POINT OF CARE TEST ORDERABLE S Performing Organization Address City/State/ZIP Code Phon e Number [address] (ABNORMAL) BLOOD GAS 2 VENOUS (01/25/2022 6:07 PM EDT) athologist Signature pH [place] 7.37 7.32 - [facility] 7.42 [facility] pCO2 [place] 45 41 - 51 [facility] pO2 [place] 31 25 - 40 [facility] LABORATORY HCO3 Honor[place] 25.5 mmol/L [facility] BE Honorio 0.2 mmol/L [facility] Hgb Blood Gas 14.1 13.7 - [facility] 16.5 g/dL [facility] O2HB Honorio 59.1 % [facility] COHB Honorio 1.3 % [facility] Comment: Nonsmokers: 0.5-1.5% COHB Smokers: Variable, but usually less than 10% Toxic: 20-30% COHB Lethal: Greater than 60% COHB METHB Honorio 0.0 <=1.5 % [facility] LABORATORY Na Whole Blood 132 (L) 135 - 145 mmol/L [facility] LABORATORY K Whole Blood 4.4 3.5 - 5.0 mmol/L [facility] Comment: Please note: Patients with WBC >100,000 may have falsely elevated Potassium levels. Contact the Clinical Chemistry L aboratory if there are any questions. ICa Whole Blood 1.20 1.15 - 1.33 mmol/L [facility] Comment: Note: ??Total bilirubin higher than 20 m g/dL may lead to falsely low ionized calcium. CL Whole Blood 102 98 - 107 mmol/L [facility] Gluc Whole Bld 119 65 - 199 mg/dL [facility] LABOR[facility] Comment: Diabetes: >=200 mg/dL plus symp toms Lactate WB 1.0 0.5 - 2.2 mmol/L [facility] FIO2 Honorio 21 % [facility] LABOR[facility] BGas Source Central Venous [facility] LABORATORY Specimen Anatomical Collection Method Collection Time Receive d Time (Source) Location / / Volume Laterality Blood 01/25/2022 6:07 PM 6:07 EDT PM EDT Beck Sanz MD CHEMISTRY ORDERABLES Performing Organization Address City/State/ZIP [place] [address] (ABNORMAL) CK (01/25/2022 6:00 PM EDT) athologist Signature CK, Total 32,675 (H) 0 - 200 [facility] unit/L [facility] Specimen Anatomical Collection Method Collection Time Receive d Time (Source) Location / / Volume Laterality Blood 01/25/2022 6:00 PM 2 6:12 EDT PM EDT Resulting Agency Comment Spec In Lab Cristina Hillman APRN CHEMISTRY ORDERABLES Performing Organization Address City/State/ZIP [place] [address] POCT Glucose (01/25/2022 4:09 PM EDT) athologist [facility] POC Glucose 103 65 - 199 [facility] mg/dL [facility] Comment: Supplemental ranges: <140 mg/dL before meals <180 mg/dL all other times of the day Specimen Anatomical Collection Method Collection Time Receive d Time (Source) Location / / Volume Laterality Blood 01/25/2022 4:09 PM 2 4:09 EDT PM EDT Beck Sanz MD POINT OF CARE TEST ORDERABLE S Performing Organization Address City/State/[place] [address] (ABNORMAL) BLOOD GAS 2 VENOUS (01/25/2022 11:59 AM EDT) Analysis Performed At Patho logist Time Signature pH Honorio 7.40 7.32 - [facility] 7.42 [facility] pCO2 Honorio 45 41 - 51 [facility] LABORATORY pO2 Honorio 34 25 - 40 [facility] LABORATORY HCO3 Honor[place] 27.0 mmol/L [facility] BE Honorio 2.2 mmol/L [facility] Hgb Blood Gas 12.2 (L) 13.7 - [facility] 16.5 g/dL [facility] O2HB Honorio 64.3 % [facility] COHB Honorio 0.2 % [facility] Comment: Nonsmokers: 0.5-1.5% COHB Smokers: Variable, but usually less than 10% Toxic: 20-30% COHB Lethal: Greater than 60% COHB METHB Honorio 0.3 <=1.5 % [facility] Na Whole Blood 132 (L) 135 - 145 mmol/L [facility] LABORATORY K Whole Blood 4.6 3.5 - 5.0 mmol/L [facility] Comment: Please note: Patients with WBC >100,000 may have falsely elevated Potassium levels. Contact the Clinical Chemistry L aboratory if there are any questions. ICa Whole Blood 1.22 1.15 - 1.33 mmol/L [facility] Comment: Note: ??Total bilirubin higher than 20 m g/dL may lead to falsely low ionized calcium. CL Whole Blood 103 98 - 107 mmol/L [facility] Gluc Whole Bld 115 65 - 199 mg/dL [facility] Comment: Diabetes: >=200 mg/dL plus symp toms Lactate WB 1.3 0.5 - 2.2 mmol/L [facility] FIO2 Honorio 21 % [facility] BGas Source Central Venous [facility] LABORATORY Specimen Anatomical Collection Method Collection Time Receive d Time (Source) Location / / Volume Laterality Blood 01/25/2022 11:59 01/25/2022 AM EDT 11:59 AM EDT Beck Sanz MD CHEMISTRY ORDERABLES Performing Organization Address City/[facility]/ZIP [place] [address] POCT Glucose (01/25/2022 11:56 AM EDT) P athologist Signature POC Glucose 88 65 - 199 [facility] mg/dL [facility] Comment: Supplemental ranges: <140 mg/dL before meals <180 mg/dL all other times of the day Specimen Anatomical Collection Method Collection Time Receive d Time (Source) Location / / Volume Laterality Blood 01/25/2022 11:56 01/25/2022 AM EDT 11:56 AM EDT Beck Sanz MD POINT OF CARE TEST ORDERABLE S Performing Organization Address City/State/ZIP Code Phon e Number [id number] Phosphorus (01/25/2022 11:55 AM EDT) P athologist Signature Phosphorus 2.7 2.5 - 4.5 [facility] [place] mg/dL [facility] Specimen Anatomical Collection Method Collection Time Receive d Time (Source) Location / / Volume Laterality Blood 01/25/2022 11:55 01/25/2022 AM EDT 12:05 PM EDT Resulting Agency Comment Spec In Lab Angelina Reynoso MD CHEMISTRY ORDERABLES Performing Organization Address City/State/ZIP Code Phon e Number [address] Magnesium (01/25/2022 11:55 AM EDT) P athologist Signature Magnesium 0.80 0.69 - 1.07 [facility] mmol/L [facility] Specimen Anatomical Collection Method Collection Time Receive d Time (Source) Location / / Volume Laterality Blood 01/25/2022 11:55 01/25/2022 AM EDT 12:05 PM EDT Resulting Agency Comment Spec In Lab Angelina Reynoso MD CHEMISTRY ORDERABLES Performing Organization Address City/State/ZIP Code Phon e Number [address] (ABNORMAL) Creatinine (01/25/2022 11:55 AM EDT) Analysis Performed At Patho logist Time Signature Creatinine 2.06 (H) 0.80 - [facility] [place] 1.50 mg/dL [facility] Estimated GFR 44 (L) >=60 [facility] [place] mL/min/1.7 [facility] 3 ? [facility] LABOR[facility] Comment: This patient's estimated GFR [...] (Source) Location / / Volume Laterality Blood 01/25/2022 11:55 01/25/2022 AM EDT 12:05 PM EDT Resulting Agency Comment Spec In Lab Angelina Reynoso MD CHEMISTRY ORDERABLES Performing Organization Address City/[facility]/ZIP Code Phon e Number [address] (ABNORMAL) BUN (01/25/2022 11:55 AM EDT) P athologist Signature BUN 28 (H) 10 - 20 [facility] Specimen Anatomical Collection Method Collection Time Receive d Time (Source) Location / / Volume Laterality Blood 01/25/2022 11:55 01/25/2022 AM EDT 12:05 PM EDT Resulting Agency Comment Spec In Lab Angelina Reynoso MD CHEMISTRY ORDERABLES Performing Organization Address City/[facility] [place] [address] Electrolytes panel (01/25/2022 11:55 AM EDT) P athologist Signature Sodium 137 135 - 145 [facility] mmol/L [facility] Potassium 4.7 3.5 - 5.0 [facility] mmol/[facility] LABORATORY Comment: Please note: ??Patients with WBC >100,00 0 may have falsely elevated Potassium levels. ??For accurate Potassium quantif ication in these patients send serum separator tube (gold top) for subsequent determinations. ??Contact the Clinical Chemistry Laboratory if there are any qu estions. Chloride 104 98 - 107 mmol/L [facility] CO2 25 22 - 31 mmol/L [facility] Anion Gap 8 5 - 15 mmol/L [facility] LABORATORY Specimen Anatomical Collection Method Collection Time Receive d Time (Source) Location / / Volume Laterality Blood 01/25/2022 11:55 01/25/2022 AM EDT 12:05 PM EDT Resulting Agency Comment Spec In Lab Angelina Reynoso MD CHEMISTRY ORDERABLES Performing Organization Address City/State/ZIP [place] [address] (ABNORMAL) CK (01/25/2022 11:55 AM EDT) athologist [facility] CK, Total 36,897 (H) 0 - 200 [facility] unit/[facility] LABORATORY Specimen Anatomical Collection Method Collection Time Receive d Time (Source) Location / / Volume Laterality Blood 01/25/2022 11:55 01/25/2022 AM EDT 12:05 PM EDT Resulting Agency Comment Spec In Lab Gemma B Pentland LEVELER HELPER CHEMISTRY ORDERABLES Performing Organization Address City/[facility]/[place] [address] POCT Glucose (01/25/2022 8:31 AM EDT) [facility] POC Glucose 113 65 - 199 [facility] mg/dL [facility] Comment: Supplemental ranges: <140 mg/dL before meals <180 mg/dL all other times of the day Specimen Anatomical Collection Method Collection Time Receive d Time (Source) Location / / Volume Laterality Blood 01/25/2022 8:31 AM 2 8:31 EDT AM EDT Tex Robles MD POINT OF CARE TEST ORDERABLE S Performing Organization Address City/State/[place] [address] (ABNORMAL) CK (01/25/2022 8:20 AM EDT) [facility] CK, Total 36,878 (H) 0 - 200 [facility] LABORATORY Specimen Anatomical Collection Method Collection Time Receive d Time (Source) Location / / Volume Laterality Blood 01/25/2022 8:20 AM 2 8:37 EDT AM EDT Resulting Agency Comment Spec In Lab Gemma B Pentland LEVELER HELPER CHEMISTRY ORDERABLES Performing Organization Address City/State/[place] [address] (ABNORMAL) BLOOD GAS 2 ARTERIAL (01/25/2022 6:22 AM EDT) Analysis Performed At Patho logist Time Signature pH Art 7.45 7.35 - [facility] 7.45 [facility] pCO2 Art 33 (L) 35 - 45 [facility] mmHg [facility] pO2 Art 114 (H) 85 - 104 [facility] LABORATORY HCO3 Art 22.4 20.0 - [facility] 26.0 [facility] mmol/L [facility] LABORATORY BE Art -1.6 -3.0 - 3.0 [facility] mmol/L [facility] Hgb Blood Gas 13.3 (L) 13.7 - [facility] 16.5 g/dL [facility] O2HB Art 97.0 94.0 - [facility] 97.0 % [facility] COHB Art 0.3 % [facility] Comment: Nonsmokers: 0.5-1.5% COHB Smokers: Variable, but usually less than 10% Toxic: 20-30% COHB Lethal: Greater than 60% COHB METHB Art 0.2 <=1.5 % [facility] Na Whole Blood 131 (L) 135 - 145 mmol/L [facility] LABORATORY K Whole Blood 5.0 3.5 - 5.0 mmol/L [facility] Comment: Please note: Patients with WBC >100,000 may have falsely elevated Potassium levels. Contact the Clinical Chemistry L aboratory if there are any questions. ICa Whole Blood 1.21 1.15 - 1.33 mmol/L [facility] Comment: Note: ??Total bilirubin higher than 20 m g/dL may lead to falsely low ionized calcium. CL Whole Blood 103 98 - 107 mmol/L [facility] Gluc Whole Bld 122 65 - 199 mg/dL [facility] Comment: Diabetes: >=200 mg/dL plus symp toms. Lactate WB 1.3 0.5 - 2.2 mmol/L [facility] FIO2 Art 35 % [facility] PF Ratio Art 326 [facility] LABORATORY Specimen Anatomical Collection Method Collection Time Receive d Time (Source) Location / / Volume Laterality Blood 01/25/2022 6:22 AM 2 6:22 EDT AM EDT Tex Robles MD CHEMISTRY ORDERABLES Performing Organization Address City/[facility]/ZIP Code Phon e Number [address] POCT Glucose (01/25/2022 3:49 AM EDT) P athologist Signature POC Glucose 121 65 - 199 [facility] mg/dL [facility] Comment: Supplemental ranges: <140 mg/dL before meals <180 mg/dL all other times of the day Specimen Anatomical Collection Method Collection Time Receive d Time (Source) Location / / Volume Laterality Blood 01/25/2022 3:49 AM 2 3:49 EDT AM EDT Tex Robles MD POINT OF CARE TEST ORDERABLE S Performing Organization Address City/[facility]/[place] [address] Scan, Peripheral Blood (01/25/2022 12:30 AM EDT) Jobzella Method Time Signature Plat Estimate Decreased [facility] RBC Morphology Normal [facility] Specimen Anatomical Collection Method Collection Time Receive d Time (Source) Location / / Volume Laterality Blood 01/25/2022 12:30 01/25/2022 AM EDT 12:39 AM EDT Resulting Agency Comment Spec In Lab Cristina Hillman APRN HEMATOLOGY ORDERABLES Performing Organization Address City/[facility]/[place] [address] (ABNORMAL) Differential, Automated (01/25/2022 12:30 AM EDT) Jobzella Method Time Signature Neutrophils % 77.1 % [facility] Neutr Abs (ANC) 6.61 (H) 1.70 - [facility] 6.10 [facility] x10(3)/[facility] LABORATORY Lymphocytes % 12.9 % [facility] Lymphocytes Abs 1.1 0.9 - 3.2 [facility] x10(3)/[facility] LABORATORY Monocytes % 7.5 % [facility] Monocyte Abs 0.6 0.3 - 0.9 [facility] x10(3)/[facility] LABORATORY Eosinophils % 0.3 % [facility] Eosinophils Abs 0.0 0.0 - 0.4 [facility] x10(3)/[facility] LABORATORY Basophils % 0.3 % [facility] Basophils Abs 0.0 0.0 - 0.1 [facility] x10(3)/[facility] LABORATORY Immature Gran % 1.90 % [facility] Comment: Immature granulocytes(IG's)percentage an d absolute count will include metamyelocytes, myelocytes, and promyelo cytes. Blood smears from CBCs yielding IG's will be scanned manually for concor dance. If this scan disagrees with the automated IG or if promyelocytes are not ed, a manual differential will be performed. Gemini Gran Abs 0.16 (H) 0.00 - 0.04 x10(3)/[facility] LABORATORY Specimen Anatomical Collection Method Collection Time Receive d Time (Source) Location / / Volume Laterality Blood 01/25/2022 12:30 01/25/2022 AM EDT 12:39 AM EDT Resulting Agency Comment Spec In Lab Cristina Hillman APRN HEMATOLOGY ORDERABLES Performing Organization Address City/State/ZIP [place] [address] (ABNORMAL) Hemogram (01/25/2022 12:30 AM EDT) Analysis Performed At Patho logist Time Signature WBC 8.6 4.0 - 9.5 [facility] x10(3)/[facility] LABORATORY RBC 3.39 (L) 4.58 - [facility] 5.54 [facility] x10(6)/[facility] LABORATORY Hemoglobin 11.0 (L) 13.7 - [facility] Hematocrit 31.2 (L) 40.5 - [facility] 48.5 % [facility] MCV 92.0 82.9 - [facility] 93.1 [facility] LABORATORY MCH 32.4 (H) 27.5 - [place] [place] 32.1 pg [facility] MCHC 35.3 32.0 - [facility] [place] 35.7 g/dL [facility] Platelets 88 (L) 145 - 357 [facility] x10(3)/[facility] LABORATORY RDWSD 41.2 36.0 - [facility] [place] 45.0 [facility] LABORATORY RDWCV 12.2 11.4 - [facility] 13.8 % [facility] MPV 10.6 7.6 - 12.9 [facility] LABORATORY nRBC % Auto 0.0 % [facility] nRBC Abs Auto 0.000 0.000 - [facility] M[facility]O 0.000 [facility] x10(3)/[facility] LABORATORY Specimen Anatomical Collection Method Collection Time Receive d Time (Source) Location / / Volume Laterality Blood 01/25/2022 12:30 01/25/2022 AM EDT 12:39 AM EDT Resulting Agency Comment Spec In Lab Gemma B Pentland LEVELER HELPER HEMATOLOGY ORDERABLES Performing Organization Address City/State/Z[place] [address] (ABNORMAL) CK (01/25/2022 12:30 AM EDT) P athologist [facility] CK, Total 42,239 (H) 0 - 200 [facility] unit/L [facility] Specimen Anatomical Collection Method Collection Time Receive d Time (Source) Location / / Volume Laterality Blood 01/25/2022 12:30 01/25/2022 AM EDT 12:39 AM EDT Resulting Agency Comment Spec In Lab DearJanema B Pentland LEVELER HELPER CHEMISTRY ORDERABLES Performing Organization Address City/State/[place] [address] (ABNORMAL) Hepatic Function Panel (01/25/2022 12:30 AM EDT) P athologist Signature Total Protein 4.1 (L) 6.1 - 8.0 [facility] g/dL [facility] Albumin 2.0 (L) 3.2 - 5.2 [facility] [place] g/dL [facility] AST 797 (H) 0 - 39 [facility] unit/L [facility] ALT 583 (H) 0 - 55 [facility] unit/L [facility] Alk Phos 51 40 - 130 [facility]L [facility] Total 0.3 0.2 - 1.3 [facility] Bilirubin mg/dL [facility] Bili, Direct 0.1 0.0 - 0.3 [facility] mg/dL [facility] Specimen Anatomical Collection Method Collection Time Receive d Time (Source) Location / / Volume Laterality Blood 01/25/2022 12:30 01/25/2022 AM EDT 12:39 AM EDT Resulting Agency Comment Spec In Lab Cristina Hillman APRN CHEMISTRY ORDERABLES Performing Organization Address City/State/ZIP [place] [address] (ABNORMAL) Basic Metabolic Panel (non-fasting) (01/25/2022 12:30 AM EDT) P athologist Signature Glucose Lvl 129 65 - 199 [facility] mg/dL [facility] Comment: Diabetes: >=200 mg/dL plus symp toms BUN 30 (H) 10 - 20 mg/dL [facility] LABORATORY Creatinine 2.39 (H) 0.80 - 1.50 mg/dL [facility] LABOR[facility] Sodium 135 135 - 145 mmol/L [facility] LABORATORY Potassium 5.0 3.5 - 5.0 mmol/L [facility] LABORATORY Comment: Please note: ??Patients with WBC >100,00 0 may have falsely elevated Potassium levels. ??For accurate Potassium quantif ication in these patients send serum separator tube (gold top) for subsequent determinations. ??Contact the Clinical Chemistry Laboratory if there are any qu estions. Chloride 105 98 - 107 mmol/L [facility] CO2 24 22 - 31 mmol/L [facility] Anion Gap 6 5 - 15 mmol/L [facility] Calcium 8.2 (L) 8.5 - 10.5 mg/dL [facility] LABORATORY Estimated GFR 36 (L) >=60 mL/min/1.73 m?? [facility] Comment: This patient's estimated GFR [...] (Source) Location / / Volume Laterality Blood 01/25/2022 12:30 01/25/2022 AM EDT 12:39 AM EDT Resulting Agency Comment Spec In Lab Dunia Han DO CHEMISTRY ORDERABLES Performing Organization Address City/State/ZIP Code Phon e Number [address] Phosphorus (01/25/2022 12:30 AM EDT) P athologist Signature Phosphorus 3.9 2.5 - 4.5 [facility] mg/dL [facility] Specimen Anatomical Collection Method Collection Time Receive d Time (Source) Location / / Volume Laterality Blood 01/25/2022 12:30 01/25/2022 AM EDT 12:39 AM EDT Resulting Agency Comment Spec In Lab Gela Novak MD CHEMISTRY ORDERABLES Performing Organization Address City/State/ZIP Code Phon e Number [address] Magnesium (01/25/2022 12:30 AM EDT) P athologist Signature Magnesium 0.89 0.69 - 1.07 [facility] mmol/L [facility] Specimen Anatomical Collection Method Collection Time Receive d Time (Source) Location / / Volume Laterality Blood 01/25/2022 12:30 01/25/2022 AM EDT 12:39 AM EDT Resulting Agency Comment Spec In Lab Gela Novak MD CHEMISTRY ORDERABLES Performing Organization Address City/State/ZIP Code Phon e Number [address] POCT Glucose (01/25/2022 12:19 AM EDT) P athologist Signature POC Glucose 126 65 - 199 [facility] Comment: Supplemental ranges: <140 mg/dL before meals <180 mg/dL all other times of the day Specimen Anatomical Collection Method Collection Time Receive d Time (Source) Location / / Volume Laterality Blood 01/25/2022 12:19 01/25/2022 AM EDT 12:19 AM EDT Tex Robles MD POINT OF CARE TEST ORDERABLE S Performing Organization Address City/State/[place] [address] Angiogram Carotids (01/24/2022 11:32 PM EDT) [...] who have questions please contact the health nursing care attendant that requested your imaging first. ? Narrative 01/25/2022 10:26 AM EDT EXAMINATION: CT ANGIOGRAM [place], [place] ANGIOGRAM CAROTIDS CLINICAL [...] different from the original. EXAMINATION: CT ANGIOGRAM [place], CT ANGIOGRAM CAROTIDS [...] ho have questions please contact the health nursing care attendant that requested your imaging first. Agnieszka López LEVELER HELPER IMG CT ORDERABLES CT Angiogram [place] (01/24/2022 11:32 PM EDT) Anatomical [...] who have questions please contact the health nursing care attendant that requested your imaging first. ? Narrative 01/25/2022 10:26 AM EDT EXAMINATION: CT ANGIOGRAM [place] ANGIOGRAM CAROTIDS CLINICAL [...] different from the original. EXAMINATION: CT ANGIOGRAM [place] ANGIOGRAM CAROTIDS [...] ho have questions please contact the health nursing care attendant that requested your imaging first. Agnieszkaeliseo López APRN IMG CT ORDERABLES POCT Glucose (01/24/2022 8:11 PM EDT) athologist Signature POC Glucose 135 65 - 199 [facility] mg/dL [facility] Comment: Supplemental ranges: <140 mg/dL before meals <180 mg/dL all other times of the day Specimen Anatomical Collection Method Collection Time Receive d Time (Source) Location / / Volume Laterality Blood 01/24/2022 8:11 PM 2 8:11 EDT PM EDT Tex Robles MD POINT OF CARE TEST ORDERABLE S Performing Organization Address City/State/[place] [address] (ABNORMAL) CK (01/24/2022 6:20 PM EDT) athologist Signature CK, Total 50,445 (H) 0 - 200 [facility] unit/L [facility] Specimen Anatomical Collection Method Collection Time Receive d Time (Source) Location / / Volume Laterality Blood 01/24/2022 6:20 PM 2 6:27 EDT PM EDT Resulting Agency Comment Spec In Lab Cristina Hillman LEVELER HELPER CHEMISTRY ORDERABLES Performing Organization Address City/State/[place] [address] MRI Brain wo Contrast (01/24/2022 4:27 PM EDT) Anatomical Region Laterality Modality Head Magnetic Resonance Specimen (Source) Anatomical Location Collection Method / Collectio n Time Received Time / Laterality Volume Impressions 01/24/2022 4:39 PM EDT 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 Thank you for letting us participate in the care of this patient. ??If you are a health care provider and have any questi ons regarding this report, please contact the number below. ??For patients who have questions please contact the health nursing care attendant that requested your imaging first. ? Electronically signed by: REECE Rosenberg [facility] ([phone]), at 01/24/2022 4:39 PM Narrative 01/24/2022 4:39 PM EDT EXAMINATION: MRI BRAIN WO CONTRAST CLINICAL HISTORY: Mental status change, unknown cause; globi pallidi infarcts noted on HCT and r/o other intracranial infarcts TECHNIQUE: Routine MRI of the brain was performed without contrast COMPARISON: CT head 01/23/2022 FINDINGS: Signal alteration and diffusio n restriction within the globus pallidus with central mineralization. Punctate sc attered foci of diffusion weighted abnormality in the cerebellar hemisphere s. No mass effect, midline shift or extra-axial collection. The ventricles a re normal in caliber. Borderline low-lying cerebellar tonsils. Secretions in the sphenoid sinuses, ethmoid air cells and right frontal sinus. Mild muco barbara thickening in the maxillary sinuses and left frontal sinus. Scant fluid with in the mastoid air cells. Procedure Note Bernadine Edward MD - 01/24/2022Form atting of this note might be different from the original. EXAMINATION: MRI BRAIN WO CONTRAST CLINICAL HISTORY: Mental status change, unknown cause; globi pallidi infarcts noted on HCT and r/o other intracranial infarcts TECHNIQUE: Routine MRI of the brain was performed without contrast COMPARISON: CT head 01/23/2022 FINDINGS: Signal alteration and diffusio n restriction within the globus pallidus with central mineralization. Punctate sc attered foci of diffusion weighted abnormality in the cerebellar hemisphere s. No mass effect, midline shift or extra-axial collection. The ventricles a re normal in caliber. Borderline low-lying cerebellar tonsils. Secretions in the sphenoid sinuses, ethmoid air cells and right frontal sinus. Mild muco barbara thickening in the maxillary sinuses and left frontal sinus. Scant fluid with in the mastoid air cells. IMPRESSION 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 Thank you for letting us participate in the care of this patient. If you are a health care provider and have any questi ons regarding this report, please contact the number below. For patients w ho have questions please contact the health nursing care attendant that requested your imaging first. Cristina Hillman LEVELER HELPER IMG MRI ORDERABLES MRSA PCR (01/24/2022 1:10 PM EDT) [facility] Time Signature MRSA Result Negative Negative [facility] MRSA Interp Negative for methicillin-resistant Staphylococcus aureus (MRSA) [facility] This test was performed using the GeneXpert?? Dx System an d the Xpert MRSA MEMORIAL Assay. The MRSA target DNA was not detec karian. The sample processing control and HOSPITAL probe check were valid. The performance of this test was determined by the [facility] [facility] Molecular Pathology Laboratory. It has been maximus red by the U.S. Food and Drug Administration for clinical use. Comment: [VERIFIED DATE]01.25.22 Verified By:Alfonso Soto (Electronic Signature) Specimen (Source) Anatomical Collection Method Collection Time Re ceived Time Location / / Volume Laterality Nasopharyngeal Swab 01/24/2022 1:10 01/25 PM EDT 7:30 AM EDT Resulting Agency Comment Spec In Lab Agnieszka López LEVELER HELPER MICROBIOLOGY - GENERAL ORDER JT Performing Organization Address City/State/ZIP [place] [address] (ABNORMAL) CK (01/24/2022 12:14 PM EDT) athologist Signature CK, Total 61,457 (H) 0 - 200 [facility]ORY Specimen Anatomical Collection Method Collection Time Receive d Time (Source) Location / / Volume Laterality Blood 01/24/2022 12:14 01/24/2022 1:00 PM EDT PM EDT Resulting Agency Comment Spec In Lab Gemma B Alycialand LEVELER HELPER CHEMISTRY ORDERABLES Performing Organization Address City/State/[place] [address] POCT Glucose (01/24/2022 12:13 PM EDT) athologist Signature POC Glucose 132 65 - 199 [facility] mg[facility] Comment: Supplemental ranges: <140 mg/dL before meals <180 mg/dL all other times of the day Specimen Anatomical Collection Method Collection Time Receive d Time (Source) Location / / Volume Laterality Blood 01/24/2022 12:13 01/24/2022 PM EDT 12:13 PM EDT Tex Robles MD POINT OF CARE TEST ORDERABLE S Performing Organization Address City/State/[place] [address] ECHOCARDIO[address] COMPLETE W CONTRAST (01/24/2022 9:30 AM EDT) Anatomical Region Laterality Modality Cardiac Other Specimen (Source) Anatomical Collection Method Collection Time Re ceived Time Location / / Volume Laterality 01/23/2022 12:16 PM EDT Narrative 01/24/2022 11:52 AM EDT [facility] ?[address] ? [place] [address] ?Voice: ?Fax: ? Echocardiogram Report Name: ALIX HOLLAND ?Study Date : 01/23/2022 12:16 PM ?BP: 96/65 mmHg ?Patient Location: [address] A : 1990 ?Height: 183 cm ? Account: [id number] Age: 31 yrs ?Weigh t: 102 kg Gender: Male ? BSA: 2.2 m2 Ordering Physician: CRISTINA HILLMAN Referring Physician: NICOLE INFANTE Performed By: Milan Pascual RDCS Interpretation Summary [...] 05/03/2018, the prior LVEF was normal. Procedure Complete-[id number]. Right ventricular strain . Image enhancement Optison [...] Aneurysmal ?15-16 ?? diffuse Procedure Note Yair Hill MD - 01/24/2022Forma tting of this note might be different from the original. [place] [address] [place] [address] Voice: Fax: Echocardiogram Report Name: ALIX HOLLAND Study Date: 2021 12:16 PM BP: 96/65 mmHg Patient Location: [address] : 1990 Height: 183 cm Account: [id number] Age: 31 yrs Weight: 102 kg Gender: Male BSA: 2.2 m2 Ordering Physician: CRISTINA HILLMAN Referring Physician: NICOLE INFANTE Performed By: Milan Pascual RDCS Interpretation Summary [...] 05/03/2018, the prior LVEF was normal. Procedure Complete-[id number]. Right ventricular strain . Image enhancement Optison [...] 5 - 6-14 large Aneurysmal 15-16 diffuse Cristina Hillman APRN ECHO ORDERABLES POCT Glucose (01/24/2022 8:39 AM EDT) athologist Signature POC Glucose 122 65 - 199 [facility] mg/dL [facility] Comment: Supplemental ranges: <140 mg/dL before meals <180 mg/dL all other times of the day Specimen Anatomical Collection Method Collection Time Receive d Time (Source) Location / / Volume Laterality Blood 01/24/2022 8:39 AM 2 8:39 EDT AM EDT Tex Robles MD POINT OF CARE TEST ORDERABLE S Performing Organization Address City/State/[place] [address] (ABNORMAL) CK (01/24/2022 6:25 AM EDT) athologist Signature CK, Total 84,528 (H) 0 - 200 [facility] [employer] unit/L [facility] Specimen Anatomical Collection Method Collection Time Receive d Time (Source) Location / / Volume Laterality Blood 01/24/2022 6:25 AM 2 6:40 EDT AM EDT Resulting Agency Comment Spec In Lab Tex Robles MD CHEMISTRY ORDERABLES Performing Organization Address City/State/Z[place] [address] Electrolytes panel (01/24/2022 6:25 AM EDT) athologist Signature Sodium 136 135 - 145 [facility] mmol/L [facility] Potassium 4.4 3.5 - 5.0 [facility] [place] mmol/L [facility] Comment: Please note: ??Patients with WBC >100,00 0 may have falsely elevated Potassium levels. ??For accurate Potassium quantif ication in these patients send serum separator tube (gold top) for subsequent determinations. ??Contact the Clinical Chemistry Laboratory if there are any qu estions. Chloride 103 98 - 107 mmol/L [facility] CO2 22 22 - 31 mmol/L [facility] Anion Gap 11 5 - 15 mmol/L [facility] Specimen Anatomical Collection Method Collection Time Receive d Time (Source) Location / / Volume Laterality Blood 01/24/2022 6:25 AM 6:40 EDT AM EDT Resulting Agency Comment Spec In Lab Angelina Reynoso MD CHEMISTRY ORDERABLES Performing Organization Address City/State/Z[place] [address] (ABNORMAL) Blood Gas Arterial ([facility]) (01/24/2022 6:20 AM EDT) Analysis Performed At Patho logist Time Signature pH Art 7.48 (H) 7.35 - [facility] 7.45 [facility] pCO2 Art 29 (L) 35 - 45 [facility] LABORATORY pO2 Art 68 (L) 85 - 104 [facility] LABORATORY HCO3 Art 21.1 20.0 - [facility] 26.0 [facility] mmol/[facility] BE Art -2.3 -3.0 - 3.0 [facility] mmol/L [facility] Hgb Blood Gas 14.7 13.7 - [facility] 16.5 g/dL [facility] O2HB Art 91.8 (L) 94.0 - [facility] 97.0 % [facility] COHB Art 0.8 % [facility] Comment: Nonsmokers: ??0.5-1.5% COHB Smokers: ??Variable, but usually less th an 10% Toxic: 20 - 30% COHB Lethal: ??Greater than 60% COHB METHB Art 0.3 <=1.5 % [facility] Na Whole Blood 133 (L) 135 - 145 mmol/L [facility] K Whole Blood 4.3 3.5 - 5.0 mmol/L [facility] Comment: Please note: ??Patients with WBC >100,00 0 may have falsely elevated Potassium levels. ??Contact the Clinical Chemistry Laboratory if there are any questions. ICa Whole Blood 1.16 1.15 - 1.33 mmol/L [facility] Comment: Note: ??Total bilirubin higher than 20 m g/dL may lead to falsely low ionized calcium. CL Whole Blood 103 98 - 107 mmol/L [facility] Gluc Whole Bld 134 65 - 199 mg/dL [facility] Comment: Diabetes: >=200 mg/dL plus symp toms. Lactate WB 1.9 0.5 - 2.2 mmol/L [facility] Specimen Anatomical Collection Method Collection Time Receive d Time (Source) Location / / Volume Laterality Blood Arterial Draw / 01/24/2022 6:20 AM 2021 6:30 Unknown EDT AM EDT Resulting Agency Comment Spec In Lab Angelina Reynoso MD CHEMISTRY ORDERABLES Performing Organization Address City/[facility]/ZIP Code Phon e Number [address] POCT Glucose (01/24/2022 4:06 AM EDT) P athologist Signature POC Glucose 103 65 - 199 [facility] mg/dL [facility] Comment: Supplemental ranges: <140 mg/dL before meals <180 mg/dL all other times of the day Specimen Anatomical Collection Method Collection Time Receive d Time (Source) Location / / Volume Laterality Blood 01/24/2022 4:06 AM 4:06 EDT AM EDT Tex Robles MD POINT OF CARE TEST ORDERABLE S Performing Organization Address City/[facility]/Z[place] [address] (ABNORMAL) Differential, Automated (01/24/2022 12:18 AM EDT) Patholo gist Method Time Signature Neutrophils % 77.0 % [facility] Neutr Abs (ANC) 8.76 (H) 1.70 - [facility] 6.10 [facility] x10(3)/[facility] L LABORATORY Lymphocytes % 13.0 % [facility] Lymphocytes Abs 1.5 0.9 - 3.2 [facility] x10(3)/[facility] LABORATORY Monocytes % 8.0 % [facility] Monocyte Abs 0.9 0.3 - 0.9 [facility] x10(3)/[facility] LABORATORY Eosinophils % 0.4 % [facility] Eosinophils Abs 0.0 0.0 - 0.4 [facility] x10(3)/[facility] LABORATORY Basophils % 0.4 % [facility] Basophils Abs 0.0 0.0 - 0.1 [facility] x10(3)/[facility] LABORATORY Immature Gran % 1.20 % [facility] Comment: Immature granulocytes(IG's)percentage an d absolute count will include metamyelocytes, myelocytes, and promyelo cytes. Blood smears from CBCs yielding IG's will be scanned manually for concor dance. If this scan disagrees with the automated IG or if promyelocytes are not ed, a manual differential will be performed. Gemini Gran Abs 0.14 (H) 0.00 - 0.04 x10(3)/[facility] LABORATORY Specimen Anatomical Collection Method Collection Time Receive d Time (Source) Location / / Volume Laterality Blood 01/24/2022 12:18 01/24/2022 AM EDT 12:25 AM EDT Resulting Agency Comment Spec In Lab Cristina Hillman APRN HEMATOLOGY ORDERABLES Performing Organization Address City/State/Z[place] [address] (ABNORMAL) Hemogram (01/24/2022 12:18 AM EDT) Analysis Performed At Patho logist Time Signature WBC 11.4 (H) 4.0 - 9.5 [facility] x10(3)/[facility] LABORATORY RBC 4.66 4.58 - [facility] 5.54 [facility] x10(6)/[facility] LABORATORY Hemoglobin 14.8 13.7 - [facility] 16.5 g/dL [facility] Hematocrit 41.7 40.5 - [facility] 48.5 % [facility] MCV 89.5 82.9 - [facility]1 [facility] LABORATORY MCH 31.8 27.5 - [facility] 32.1 pg [facility] MCHC 35.5 32.0 - [facility] 35.7 g/dL [facility] Platelets 136 (L) 145 - 357 [facility] x10(3)/[facility] LABORATORY RDWSD 40.0 36.0 - [facility] 45.0 [facility] LABORATORY RDWCV 12.3 11.4 - [facility] 13.8 % [facility] MPV 10.1 7.6 - 12.9 [facility] LABORATORY nRBC % Auto 0.0 % [facility] nRBC Abs Auto 0.000 0.000 - [facility] 0.000 [facility] x10(3)/[facility] LABORATORY Specimen Anatomical Collection Method Collection Time Receive d Time (Source) Location / / Volume Laterality Blood 01/24/2022 12:18 01/24/2022 AM EDT 12:25 AM EDT Resulting Agency Comment Spec In Lab Cristina Hillman APRN HEMATOLOGY ORDERABLES Performing Organization Address City/State/Z[place] [address] (ABNORMAL) Basic Metabolic Panel (non-fasting) (01/24/2022 12:18 AM EDT) P athologist Signature Glucose Lvl 164 65 - 199 [facility] mg/dL [facility] Comment: Diabetes: >=200 mg/dL plus symp toms BUN 31 (H) 10 - 20 mg/dL [facility] Creatinine 3.00 (H) 0.80 - 1.50 mg/dL [facility] Sodium 138 135 - 145 mmol/L [facility]ORY Potassium 4.7 3.5 - 5.0 mmol/L [facility] Comment: Please note: ??Patients with WBC >100,00 0 may have falsely elevated Potassium levels. ??For accurate Potassium quantif ication in these patients send serum separator tube (gold top) for subsequent determinations. ??Contact the Clinical Chemistry Laboratory if there are any qu estions. Chloride 103 98 - 107 mmol/L [facility] CO2 21 (L) 22 - 31 mmol/L [facility] Anion Gap 14 5 - 15 mmol/L [facility] Calcium 8.0 (L) 8.5 - 10.5 mg/dL [facility]ORY Comment: result rechecked-trb Estimated GFR 28 (L) >=60 mL/min/1.73 m?? [facility] Comment: This patient's estimated GFR [...] (Source) Location / / Volume Laterality Blood 01/24/2022 12:18 01/24/2022 AM EDT 12:25 AM EDT Resulting Agency Comment Spec In Lab Dunia Han DO CHEMISTRY ORDERABLES Performing Organization Address City/State/ZIP Code Phon e Number [address] Phosphorus (01/24/2022 12:18 AM EDT) P athologist Signature Phosphorus 4.5 2.5 - 4.5 [facility] mg/dL [facility] Specimen Anatomical Collection Method Collection Time Receive d Time (Source) Location / / Volume Laterality Blood 01/24/2022 12:18 01/24/2022 AM EDT 12:25 AM EDT Resulting Agency Comment Spec In Lab Gela Novak MD CHEMISTRY ORDERABLES Performing Organization Address City/[facility]/ZIP Code Phon e Number [address] Magnesium (01/24/2022 12:18 AM EDT) P athologist Signature Magnesium 0.92 0.69 - 1.07 [facility] mmol/L [facility] Specimen Anatomical Collection Method Collection Time Receive d Time (Source) Location / / Volume Laterality Blood 01/24/2022 12:18 01/24/2022 AM EDT 12:25 AM EDT Resulting Agency Comment Spec In Lab Gela Novak MD CHEMISTRY ORDERABLES Performing Organization Address City/[facility]/[place] [address] (ABNORMAL) Hepatic Function Panel (01/24/2022 12:18 AM EDT) Patholo gist Method Time Signature Total Protein 4.5 (L) 6.1 - 8.0 [facility] g/dL [facility] Albumin 2.2 (L) 3.2 - 5.2 [facility] g/dL [facility] AST 1,181 (H) 0 - 39 [facility] unit/L [facility] ALT 682 (H) 0 - 55 [facility] unit/L [facility] Alk Phos 65 40 - 130 [facility] unit/L [facility] Total 0.5 0.2 - 1.3 [facility] Bilirubin mg/dL [facility] Bili, Direct 0.2 0.0 - 0.3 [facility] mg/dL [facility] Specimen Anatomical Collection Method Collection Time Receive d Time (Source) Location / / Volume Laterality Blood 01/24/2022 12:18 01/24/2022 AM EDT 12:25 AM EDT Resulting Agency Comment Spec In Lab Cristina Hillman APRN CHEMISTRY ORDERABLES Performing Organization Address City/[facility]/[place] [address] (ABNORMAL) Electrolytes panel (01/24/2022 12:18 AM EDT) athologist Signature Sodium 138 135 - 145 [facility]/L [facility] Potassium 4.7 3.5 - 5.0 [facility] mmol/L [facility] Comment: Please note: ??Patients with WBC >100,00 0 may have falsely elevated Potassium levels. ??For accurate Potassium quantif ication in these patients send serum separator tube (gold top) for subsequent determinations. ??Contact the Clinical Chemistry Laboratory if there are any qu estions. Chloride 103 98 - 107 mmol/L [facility] CO2 21 (L) 22 - 31 mmol/L [facility] Anion Gap 14 5 - 15 mmol/L [facility] Specimen Anatomical Collection Method Collection Time Receive d Time (Source) Location / / Volume Laterality Blood 01/24/2022 12:18 01/24/2022 AM EDT 12:25 AM EDT Resulting Agency Comment Spec In Lab Gemma B Pentland LEVELER HELPER CHEMISTRY ORDERABLES Performing Organization Address City/[facility]/[place] [address] (ABNORMAL) CK (01/24/2022 12:18 AM EDT) P athologist Signature CK, Total 84,860 (H) 0 - 200 [facility] unit/L [facility] Specimen Anatomical Collection Method Collection Time Receive d Time (Source) Location / / Volume Laterality Blood 01/24/2022 12:18 01/24/2022 AM EDT 12:25 AM EDT Resulting Agency Comment Spec In Lab Gemma B Pentland LEVELER HELPER CHEMISTRY ORDERABLES Performing Organization Address City/[facility]/[place] [address] POCT Glucose (01/24/2022 12:17 AM EDT) P athologist Signature POC Glucose 158 65 - 199 [facility] mg/dL [facility] Comment: Supplemental ranges: <140 mg/dL before meals <180 mg/dL all other times of the day Specimen Anatomical Collection Method Collection Time Receive d Time (Source) Location / / Volume Laterality Blood 01/24/2022 12:17 01/24/2022 AM EDT 12:17 AM EDT Tex Robles MD POINT OF CARE TEST ORDERABLE S Performing Organization Address City/[facility]/[place] [address] (ABNORMAL) BLOOD GAS 2 ARTERIAL (01/24/2022 12:16 AM EDT) Analysis Performed At Patho logist Time Signature pH Art 7.48 (H) 7.35 - [facility] 7.45 [facility] pCO2 Art 30 (L) 35 - 45 [facility] mmHg [facility] pO2 Art 70 (L) 85 - 104 [facility] mmHg [facility] HCO3 Art 22.0 20.0 - [facility] 26.0 [facility] mmol/L [facility] BE Art -1.5 -3.0 - 3.0 [facility] mmol/L [facility] Hgb Blood Gas 15.9 13.7 - [facility] 16.5 g/dL [facility] O2HB Art 92.9 (L) 94.0 - [facility] 97.0 % [facility] COHB Art 0.6 % [facility] Comment: Nonsmokers: 0.5-1.5% COHB Smokers: Variable, but usually less than 10% Toxic: 20-30% COHB Lethal: Greater than 60% COHB METHB Art 0.4 <=1.5 % [facility] Na Whole Blood 133 (L) 135 - 145 mmol/L [facility] K Whole Blood 4.5 3.5 - 5.0 mmol/L [facility] Comment: Please note: Patients with WBC >100,000 may have falsely elevated Potassium levels. Contact the Clinical Chemistry L aboratory if there are any questions. ICa Whole Blood 1.11 (L) 1.15 - 1.33 mmol/L [facility] Comment: Note: ??Total bilirubin higher than 20 m g/dL may lead to falsely low ionized calcium. CL Whole Blood 103 98 - 107 mmol/L [facility] Gluc Whole Bld 164 65 - 199 mg/dL [facility] Comment: Diabetes: >=200 mg/dL plus symp toms. Lactate WB 2.4 (H) 0.5 - 2.2 mmol/L [facility] FIO2 Art 21 % [facility] PF Ratio Art 333 [facility] Specimen Anatomical Collection Method Collection Time Receive d Time (Source) Location / / Volume Laterality Blood 01/24/2022 12:16 01/24/2022 AM EDT 12:16 AM EDT Tex Robles MD CHEMISTRY ORDERABLES Performing Organization Address City/State/[place] [address] POCT Glucose (01/23/2022 8:20 PM EDT) P athologist Signature POC Glucose 93 65 - 199 [facility] mg/dL [facility] Comment: Supplemental ranges: <140 mg/dL before meals <180 mg/dL all other times of the day Specimen Anatomical Collection Method Collection Time Receive d Time (Source) Location / / Volume Laterality Blood 01/23/2022 8:20 PM 8:20 EDT PM EDT Tex Robles MD POINT OF CARE TEST ORDERABLE S Performing Organization Address City/[facility]/[place] [address] (ABNORMAL) Blood Gas Arterial ([facility]) (01/23/2022 6:10 PM EDT) Analysis Performed At Patho logist Time Signature pH Art 7.46 (H) 7.35 - [facility] 7.45 [facility] pCO2 Art 31 (L) 35 - 45 [facility] mmHg [facility] pO2 Art 79 (L) 85 - 104 [facility] mmHg [facility] HCO3 Art 21.5 20.0 - [facility] 26.0 [facility] mmol/L [facility] BE Art -2.4 -3.0 - 3.0 [facility] mmol/L [facility] Hgb Blood Gas 17.4 (H) 13.7 - [facility] 16.5 g/dL [facility] O2HB Art 95.5 94.0 - [facility] 97.0 % [facility] COHB Art 0.3 % [facility] Comment: Nonsmokers: ??0.5-1.5% COHB Smokers: ??Variable, but usually less th an 10% Toxic: 20 - 30% COHB Lethal: ??Greater than 60% COHB METHB Art 0.0 <=1.5 % [facility] Na Whole Blood 135 135 - 145 mmol/L [facility] K Whole Blood 5.0 3.5 - 5.0 mmol/L [facility] Comment: Please note: ??Patients with WBC >100,00 0 may have falsely elevated Potassium levels. ??Contact the Clinical Chemistry Laboratory if there are any questions. ICa Whole Blood 1.15 1.15 - 1.33 mmol/L [facility] Comment: Note: ??Total bilirubin higher than 20 m g/dL may lead to falsely low ionized calcium. CL Whole Blood 104 98 - 107 mmol/L [facility] Gluc Whole Bld 144 65 - 199 mg/dL [facility] Comment: Diabetes: >=200 mg/dL plus symp toms. Lactate WB 2.6 (H) 0.5 - 2.2 mmol/L [facility] FIO2 Art 60 % [facility] PF Ratio Art 132 [facility] Specimen Anatomical Collection Method Collection Time Receive d Time (Source) Location / / Volume Laterality Blood Arterial Draw / 01/23/2022 6:10 PM 2021 6:21 Unknown EDT PM EDT Resulting Agency Comment Spec In Lab Angelina Reynoso MD CHEMISTRY ORDERABLES Performing Organization Address City/State/ZIP [place] [address] HIV Screen, 4th Generation [place] [place] (01/23/2022 6:10 PM EDT) Analysis Performed At Patho logist Time Signature HIV-1/2 Ab and Negative Negative [facility] Comment: This 4th Generation HIV [...] Low Risk of HIV Infection [facility] Specimen Anatomical Collection Method Collection Time Receive d Time (Source) Location / / Volume Laterality Blood 01/23/2022 6:10 PM 2 6:21 EDT PM EDT Resulting Agency Comment Spec In Lab Tex Robles MD IMMUNOLOGY ORDERABLES Performing Organization Address City/[facility]/[place] [address] Hepatitis A Antibody, Total (01/23/2022 6:10 PM EDT) Analysis Performed At Patho logist Time Signature Hepatitis A Ab Negative Negative [facility]ORATORY Specimen Anatomical Collection Method Collection Time Receive d Time (Source) Location / / Volume Laterality Blood 01/23/2022 6:10 PM 2 6:21 EDT PM EDT Resulting Agency Comment Spec In Lab Tex Robles MD IMMUNOLOGY ORDERABLES Performing Organization Address City/[facility]/[place] [address] (ABNORMAL) CK (01/23/2022 6:10 PM EDT) P athologist Signature CK, Total 158,050 0 - 200 [facility] (H) unit/[facility] Specimen Anatomical Collection Method Collection Time Receive d Time (Source) Location / / Volume Laterality Blood 01/23/2022 6:10 PM 2 6:21 EDT PM EDT Resulting Agency Comment Spec In Lab Cristina Hillman LEVELER HELPER CHEMISTRY ORDERABLES Performing Organization Address City/[facility]/[place] [address] (ABNORMAL) Electrolytes panel (01/23/2022 6:10 PM EDT) P athologist Signature Sodium 136 135 - 145 [facility] mmol/L [facility] Potassium 5.0 3.5 - 5.0 [facility] mmol/L [facility] Comment: Please note: ??Patients with WBC >100,00 0 may have falsely elevated Potassium levels. ??For accurate Potassium quantif ication in these patients send serum separator tube (gold top) for subsequent determinations. ??Contact the Clinical Chemistry Laboratory if there are any qu estions. Chloride 103 98 - 107 mmol/L [facility] CO2 20 (L) 22 - 31 mmol/L [facility] Anion Gap 13 5 - 15 mmol/L [facility] Specimen Anatomical Collection Method Collection Time Receive d Time (Source) Location / / Volume Laterality Blood 01/23/2022 6:10 PM 2 6:21 EDT PM EDT Resulting Agency Comment Spec In Lab Cristina Hillman APRN CHEMISTRY ORDERABLES Performing Organization Address City/[facility]/[place] [address] Phosphorus (01/23/2022 6:10 PM EDT) P athologist Signature Phosphorus 4.2 2.5 - 4.5 [facility] Specimen Anatomical Collection Method Collection Time Receive d Time (Source) Location / / Volume Laterality Blood 01/23/2022 6:10 PM 2 6:21 EDT PM EDT Resulting Agency Comment Spec In Lab Angelina Reynoso MD CHEMISTRY ORDERABLES Performing Organization Address City/[facility]/[place] [address] Magnesium (01/23/2022 6:10 PM EDT) P athologist Signature Magnesium 0.94 0.69 - 1.07 [facility] mmol/L [facility] Specimen Anatomical Collection Method Collection Time Receive d Time (Source) Location / / Volume Laterality Blood 01/23/2022 6:10 PM 2 6:21 EDT PM EDT Resulting Agency Comment Spec In Lab Angelina Reynoso MD CHEMISTRY ORDERABLES Performing Organization Address City/[facility]/[place] [address] (ABNORMAL) Creatinine (01/23/2022 6:10 PM EDT) Analysis Performed At Patho logist Time Signature Creatinine 2.88 (H) 0.80 - [facility] 1.50 mg/dL [facility] Estimated GFR 29 (L) >=60 [facility] mL/min/1.7 [facility] 3 m? HOSPITAL LABORATORY Comment: This patient's estimated GFR [...] Address City/State/ZIP Code [place] [address] (ABNORMAL) Troponin (01/23/2022 6:10 PM EDT) P athologist Signature Troponin-T 0.14 (H) 0.00 - [facility] 0.00 ng/mL [facility] Comment: The 99th percentile for Troponin T is le ss than 0.01 ng/mL, any detectable cTnT concentration using this assay should be considered elevated. According to the third universal definit ion of myocardial infarction the following criteria with a clinical prese ntation consistent with acute myocardial ischemia meets the diagnosis for a myocardial infarction ([place]). Detection of a rise and/or fall of [...] additional sample may be indicated. Reference: Third [place]ford Definition of Myocardial Infarction. Journal of the [employer] 2012;60:1581-98 Specimen Anatomical Collection Method Collection Time Receive d Time (Source) Location / / Volume Laterality Blood 01/23/2022 6:10 PM 6:21 EDT PM EDT Resulting Agency Comment Spec In Lab Gemma B Hele Massage LEVELER HELPER CHEMISTRY ORDERABLES Performing Organization Address City/State/ZIP Code Phon e Number [place] [id number]OS[address] XR Chest One View (01/23/2022 4:54 PM EDT) Anatomical Region Laterality Modality Chest N/A Digital Radiography Specimen (Source) Anatomical Location Collection Method / Collectio n Time Received Time / Laterality Volume Impressions 01/23/2022 5:01 PM EDT Lines and tubes are in position as above. Left internal jugular line is present wi th tip in the superior vena cava. Thank you for letting us participate in the care of this patient. ??If you are a health care provider and have any questi ons regarding this report, please contact the number below. ??For patients who have questions please contact the health nursing care attendant that requested your imaging first. ? Narrative 01/23/2022 5:01 PM EDT EXAMINATION: XR CHEST ONE VIEW CLINICAL HISTORY: confirm [facility] CVL placem ent TECHNIQUE: 1 view of the chest COMPARISON: January 23, 2022 at 0608 hours FINDINGS: Endotracheal tube is present with the ti p 3 cm above the maia. Right jugular line remains in position. A left jugular central venous line has been placed with the tip overlying the superior vena cava. An orogastric tube is present with the tip passing into the left upper quadrant of the abdomen. No infiltrate or mass is seen in the visualized lungs. Heart and pulmonary vasculature are not increased. Procedure Note Lisandro Pruett MD - 01/23/2022Formattin g of this note might be different from the original. EXAMINATION: XR CHEST ONE VIEW CLINICAL HISTORY: confirm [facility] CVL placem ent TECHNIQUE: 1 view of the chest COMPARISON: January 23, 2022 at 0608 hours FINDINGS: Endotracheal tube is present with the ti p 3 cm above the maia. Right jugular line remains in position. A left jugular central venous line has been placed with the tip overlying the superior vena cava. An orogastric tube is present with the tip passing into the left upper quadrant of the abdomen. No infiltrate or mass is seen in the visualized lungs. Heart and pulmonary vasculature are not increased. IMPRESSION Lines and tubes are in position as above . Left internal jugular line is present wi th tip in the superior vena cava. Thank you for letting us participate in the care of this patient. If you are a health care provider and have any questi ons regarding this report, please contact the number below. For patients w ho have questions please contact the health nursing care attendant that requested your imaging first. Tex Robles MD IMG DX ORDERABLES (ABNORMAL) Calcium Ionized Whole Blood, HONORIO (01/23/2022 3:12 PM EDT) Analysis Performed At Patho logist Time Signature pH Honorio 7.42 7.32 - [facility] 7.42 [facility] ICa Whole 1.13 (L) 1.15 - [facility] Blood 1.33 [facility] mmol/L HOSPITAL [facility]ORY Comment: Note: ??Total bilirubin higher than 20 m g/dL may lead to falsely low ionized calcium. Specimen Anatomical Collection Method Collection Time Receive d Time (Source) Location / / Volume Laterality Blood ARTERIAL LINE / 01/23/2022 3:12 PM 2021 3:19 Unknown EDT PM EDT Resulting Agency Comment Spec In Lab Angelina Reynoso MD CHEMISTRY ORDERABLES Performing Organization Address City/State/ZIP Code Phon e Number [address] POCT Glucose (01/23/2022 3:03 PM EDT) athologist Signature POC Glucose 145 65 - 199 [facility] mg/dL [facility] Comment: Supplemental ranges: <140 mg/dL before meals <180 mg/dL all other times of the day Specimen Anatomical Collection Method Collection Time Receive d Time (Source) Location / / Volume Laterality Blood 01/23/2022 3:03 PM 2 3:03 EDT PM EDT Tex Robles MD POINT OF CARE TEST ORDERABLE S Performing Organization Address City/State/[place] [address] XR Tibia Fibula Left [...] who have questions please contact the health nursing care attendant that requested your imaging first. ? Electronically signed by: Jacky Mello MD, [facility] ([phone]), at 01/23/2022 2:07 PM Narrative 01/23/2022 2:07 PM EDT EXAMINATION: XR [...] ho have questions please contact the health nursing care attendant that requested your imaging first. Electronically signed by: Jacky Mello MD, [facility] ([phone]), at 01/23/2022 2:07 PM Tex Travis HARTLEY IMG DX ORDERABLES XR Femur [...] who have questions please contact the health nursing care attendant that requested your imaging first. ? Narrative [...] ho have questions please contact the health nursing care attendant that requested your imaging first. Tex Robles MD IMG DX ORDERABLES MRSA PCR (01/23/2022 12:47 PM EDT) [facility] Method Time Signature MRSA Result Negative Negative [facility] MRSA Interp Negative for methicillin-resistant Staphylococcus aureus (MRSA) [facility] This test was performed using the GeneXpert?? Dx System an d the Xpert MRSA MEMORIAL Assay. The MRSA target DNA was not detec karina. The sample processing control and HOSPITAL probe check were valid. The performance of this test was determined by the [facility] [place] [facility] Molecular Pathology Laboratory. It has been maximus red by the U.S. Food and Drug Administration for clinical use. Comment: [VERIFIED DATE]01.25.22 Verified By:Nora Shay (Electronic Signature) Specimen (Source) Anatomical Collection Method Collection Time Re ceived Time Location / / Volume Laterality Nasopharyngeal Swab 01/23/2022 12:47 06/12/2021 PM EDT 12:37 PM EDT Resulting Agency Comment Spec In Lab Tex Robles MD MICROBIOLOGY - GENERAL ORDER JT Performing Organization Address City/State/Z[place] [address] (ABNORMAL) BLOOD GAS 2 ARTERIAL (01/23/2022 11:56 AM EDT) Analysis Performed At Patho logist Time Signature pH Art 7.43 7.35 - [facility] 7.45 [facility] pCO2 Art 32 (L) 35 - 45 [facility] mmHg [facility] pO2 Art 86 85 - 104 [facility]ORY HCO3 Art 20.8 20.0 - [facility] 26.0 [facility] mmol/L [facility] BE Art -3.5 (L) -3.0 - 3.0 [facility] mmol/L [facility] Hgb Blood Gas 16.1 13.7 - [facility] 16.5 g/dL [facility] O2HB Art 95.6 94.0 - [facility] 97.0 % [facility] COHB Art 0.2 % [facility] Comment: Nonsmokers: 0.5-1.5% COHB Smokers: Variable, but usually less than 10% Toxic: 20-30% COHB Lethal: Greater than 60% COHB METHB Art 0.4 <=1.5 % [facility] Na Whole Blood 137 135 - 145 mmol/L [facility] K Whole Blood 5.5 (H) 3.5 - 5.0 mmol/L [facility] Comment: Please note: Patients with WBC >100,000 may have falsely elevated Potassium levels. Contact the Clinical Chemistry L aboratory if there are any questions. ICa Whole Blood 1.04 (L) 1.15 - 1.33 mmol/L [facility] Comment: Note: ??Total bilirubin higher than 20 m g/dL may lead to falsely low ionized calcium. CL Whole Blood 104 98 - 107 mmol/L [facility] Gluc Whole Bld 144 65 - 199 mg/dL [facility] Comment: Diabetes: >=200 mg/dL plus symp toms. Lactate WB 2.7 (H) 0.5 - 2.2 mmol/L [facility] FIO2 Art 60 % [facility] PF Ratio Art 143 [facility] Specimen Anatomical Collection Method Collection Time Receive d Time (Source) Location / / Volume Laterality Blood 01/23/2022 11:56 01/23/2022 AM EDT 11:56 AM EDT Tex Robles MD CHEMISTRY ORDERABLES Performing Organization Address City/[facility]/ZIP Code Phon e Number [address] Hepatitis B Surface Antigen (01/23/2022 11:50 AM EDT) Analysis Performed At [facility] logist Time Signature HepB Surface Negative Negative [facility] LABORATORY Specimen Anatomical Collection Method Collection Time Receive d Time (Source) Location / / Volume Laterality Blood 01/23/2022 11:50 01/23/2022 AM EDT 12:00 PM EDT Resulting Agency Comment Spec In Lab Agnieszka López APRN CHEMISTRY ORDERABLES Performing Organization Address City/[facility]/ZIP [facility] [place] Number [address] Hepatitis B DNA, quantitative, PCR (01/23/2022 11:50 AM EDT) Component Value Ref Test Analysis Performed At Patholo gist Range Method Time Signature Hepatitis B Result: <10 IU/mL (Target Not Detected) [facility]ALICIA MANDO quantitative, Indication for Study: HBV Infection [facility] Analysis: [employer] Elvinsarwatty m HBV assay is an in vi tro polymerase chain reaction LABORATORY (PCR) assay for the quantification of Hepatitis B Virus (HBV ) DNA in human plasma (EDTA) from chronically HBV-infected individuals. Sample: plasma Method: [employer] RealTime HBV Assay Linear Range: 10 IU/mL ? 1,000,000,000 IU/mL Note: The [employer] Alinity m HBV Assay has been approved by the U.S. Food and Drug Administration. Specimen Anatomical Collection Method Collection Time Receive d Time (Source) Location / / Volume Laterality Blood 01/23/2022 11:50 01/25/2022 8:53 AM EDT AM EDT Resulting Agency Comment Spec In Lab Agnieszka López KATERYNA CHEMISTRY ORDERABLES Performing Organization Address City/[facility]/[place] [address] Hepatitis B Core Antibody, Total (01/23/2022 11:50 AM EDT) Analysis Performed At Patho logist Time Signature Hep B Core Ab Negative Negative [facility] Specimen Anatomical Collection Method Collection Time Receive d Time (Source) Location / / Volume Laterality Blood 01/23/2022 11:50 01/23/2022 AM EDT 12:00 PM EDT Resulting Agency Comment Spec In Lab Agnieszka López LEVELER HELPER CHEMISTRY ORDERABLES Performing Organization Address City/[facility]/[place] [address] (ABNORMAL) Lower Respiratory Culture Tracheal Aspirate (01/23/2022 11:50 AM EDT) Component Value Ref Test Analysis Performed At Patholo gist Range Method Time Signature Lower Many Staphylococcus aureus MAR Y Respiratory Few mixed bacterial morphoty pes suggestive of normal upper respiratory yessy [place] Culture ([facility]ATORY Gram Stain Many Neutrophils [facility] No squamous epithelial cells [facility] Moderate Gram Positive Cocci [facility] LABORATORY Organism Staphylococcus [facility] aureus (A) [facility] Specimen Anatomical Collection Method [...] Comment: Gentamicin is not a ppropriate for [place]-therapy. Staphylococcus aureus Oxacillin VITEK 2 METHOD Sensitive [...] Staphylococcus aureus Vancomycin VITEK 2 METHOD Sensitive Cristina Hillman APRN MICROBIOLOGY - GENERAL ORDER JT Performing Organization Address City/[facility]/[place] [address] (ABNORMAL) Creatinine (01/23/2022 11:30 AM EDT) Analysis Performed At Patho logist Time Signature Creatinine 3.56 (H) 0.80 - [facility] 1.50 mg/dL [facility] Estimated GFR 23 (L) >=60 [facility] mL/min/1.7 [facility] 3 m?? HOSPITAL LABORATORY Comment: This patient's estimated GFR [...] Location / / Volume Laterality Blood 01/23/2022 11:30 01/23/2022 AM EDT 11:40 AM EDT Resulting Agency Comment Spec In Lab Angelina Reynoso MD CHEMISTRY ORDERABLES Performing Organization Address City/[facility]/[place] [address] (ABNORMAL) Phosphorus (01/23/2022 11:30 AM EDT) P athologist Signature Phosphorus 6.8 (H) 2.5 - 4.5 [facility] mg/dL [facility] Specimen Anatomical Collection Method Collection Time Receive d Time (Source) Location / / Volume Laterality Blood 01/23/2022 11:30 01/23/2022 AM EDT 11:40 AM EDT Resulting Agency Comment Spec In Lab Angelina Reynoso MD CHEMISTRY ORDERABLES Performing Organization Address City/[facility]/ZIP Code Phon e Number [address] Magnesium (01/23/2022 11:30 AM EDT) P athologist Signature Magnesium 0.86 0.69 - 1.07 [facility] mmol/L [facility] Specimen Anatomical Collection Method Collection Time Receive d Time (Source) Location / / Volume Laterality Blood 01/23/2022 11:30 01/23/2022 AM EDT 11:40 AM EDT Resulting Agency Comment Spec In Lab Angelina Reynoso MD CHEMISTRY ORDERABLES Performing Organization Address [facility] [place] [address] (ABNORMAL) Electrolytes panel (01/23/2022 11:30 AM EDT) P athologist Signature Sodium 142 135 - 145 [facility] mmol/L [facility] Potassium 5.6 (H) 3.5 - 5.0 [facility] mmol/L [facility] Comment: Please note: ??Patients with WBC >100,00 0 may have falsely elevated Potassium levels. ??For accurate Potassium quantif ication in these patients send serum separator tube (gold top) for subsequent determinations. ??Contact the Clinical Chemistry Laboratory if there are any qu estions. Chloride 107 98 - 107 mmol/L [facility] CO2 19 (L) 22 - 31 mmol/L [facility] Anion Gap 16 (H) 5 - 15 mmol/L [facility] Specimen Anatomical Collection Method Collection Time Receive d Time (Source) Location / / Volume Laterality Blood 01/23/2022 11:30 01/23/2022 AM EDT 11:35 AM EDT Resulting Agency Comment Spec In Lab Cristina Hillman APRN CHEMISTRY ORDERABLES Performing Organization Address City/[facility]/ZIP [place] [address] (ABNORMAL) CK (01/23/2022 11:30 AM EDT) athologist Signature CK, Total 146,810 0 - 200 [facility] [place] (H) unit/L [facility] Specimen Anatomical Collection Method Collection Time Receive d Time (Source) Location / / Volume Laterality Blood 01/23/2022 11:30 01/23/2022 AM EDT 11:35 AM EDT Resulting Agency Comment Spec In Lab Gemma B Pentland LEVELER HELPER CHEMISTRY ORDERABLES Performing Organization Address City/State/ZIP [place] [address] (ABNORMAL) Troponin (01/23/2022 11:30 AM EDT) athologist Signature Troponin-T 0.24 (H) 0.00 - JOS[facility] [place]QU[place] 0.00 ng/mL [facility] Comment: The 99th percentile for Troponin T is le ss than 0.01 ng/mL, any detectable cTnT concentration using this assay should be considered elevated. According to the third universal definit ion of myocardial infarction the following criteria with a clinical prese ntation consistent with acute myocardial ischemia meets the diagnosis for a myocardial infarction (NE). Detection of a rise and/or fall of [...] additional sample may be indicated. Reference: Third Stratford Definition of Myocardial Infarction. Journal of the [employer] 2012;60:1581-98 Specimen Anatomical Collection Method Collection Time Receive d Time (Source) Location / / Volume Laterality Blood 01/23/2022 11:30 01/23/2022 AM EDT 11:35 AM EDT Resulting Agency Comment Spec In Lab Cristina Hillman APRN CHEMISTRY ORDERABLES Performing Organization Address City/State/[place] [address] POCT Glucose (01/23/2022 11:01 AM EDT) P athologist Signature POC Glucose 119 65 - 199 [facility] mg/dL [facility] Comment: Supplemental ranges: <140 mg/dL before meals <180 mg/dL all other times of the day Specimen Anatomical Collection Method Collection Time Receive d Time (Source) Location / / Volume Laterality Blood 01/23/2022 11:01 01/23/2022 AM EDT 11:01 AM EDT Tex Robles MD POINT OF CARE TEST ORDERABLE S Performing Organization Address City/State/[place] [address] (ABNORMAL) BLOOD GAS 2 ARTERIAL (01/23/2022 9:18 AM EDT) Analysis Performed At Patho logist Time Signature pH Art 7.40 7.35 - [facility] 7.45 [facility] pCO2 Art 37 35 - 45 [facility] mmHg [facility] pO2 Art 61 (L) 85 - 104 [facility]ORY HCO3 Art 22.3 20.0 - [facility] 26.0 [facility] mmol/L [facility] BE Art -2.6 -3.0 - 3.0 [facility] mmol/L [facility] Hgb Blood Gas 15.3 13.7 - [facility] 16.5 g/dL [facility] O2HB Art 91.2 (L) 94.0 - [facility] 97.0 % [facility] COHB Art 0.3 % [facility] Comment: Nonsmokers: 0.5-1.5% COHB Smokers: Variable, but usually less than 10% Toxic: 20-30% COHB Lethal: Greater than 60% COHB METHB Art 0.3 <=1.5 % [facility] Na Whole Blood 137 135 - 145 mmol/L [facility] K Whole Blood 4.5 3.5 - 5.0 mmol/L [facility] Comment: Please note: Patients with WBC >100,000 may have falsely elevated Potassium levels. Contact the Clinical Chemistry L aboratory if there are any questions. ICa Whole Blood 1.23 1.15 - 1.33 mmol/L [facility] Comment: Note: ??Total bilirubin higher than 20 m g/dL may lead to falsely low ionized calcium. CL Whole Blood 105 98 - 107 mmol/L [facility] Gluc Whole Bld 117 65 - 199 mg/dL [facility] Comment: Diabetes: >=200 mg/dL plus symp toms. Lactate WB 4.9 (Critical) 0.5 - 2.2 mmol/L [facility] Comment: Noted by instrumental teacher. FIO2 Art 62 % [facility] PF Ratio Art 98 [facility] Temp Art 36.5 Celsius [facility] Specimen Anatomical Collection Method Collection Time Receive d Time (Source) Location / / Volume Laterality Blood 01/23/2022 9:18 AM 9:18 EDT AM EDT Tex Robles MD CHEMISTRY ORDERABLES Performing Organization Address City/State/ZIP [place] [address] (ABNORMAL) BLOOD GAS 2 ARTERIAL (01/23/2022 8:37 AM EDT) Analysis Performed At Patho logist Time Signature pH Art 7.40 7.35 - [facility] 7.45 [facility] pCO2 Art 33 (L) 35 - 45 [facility] pO2 Art 97 85 - 104 [facility] HCO3 Art 20.3 20.0 - [facility] 26.0 [facility] mmol/[facility] BE Art -4.4 (L) -3.0 - 3.0 [facility] mmol/L [facility] Hgb Blood Gas 15.3 13.7 - [facility] 16.5 g/dL [facility] O2HB Art 96.8 94.0 - [facility] 97.0 % [facility] COHB Art 0.4 % [facility] Comment: Nonsmokers: 0.5-1.5% COHB Smokers: Variable, but usually less than 10% Toxic: 20-30% COHB Lethal: Greater than 60% COHB METHB Art 0.3 <=1.5 % [facility] Na Whole Blood 135 135 - 145 mmol/L [facility] K Whole Blood 4.0 3.5 - 5.0 mmol/L [facility] Comment: Please note: Patients with WBC >100,000 may have falsely elevated Potassium levels. Contact the Clinical Chemistry L aboratory if there are any questions. ICa Whole Blood 1.11 (L) 1.15 - 1.33 mmol/L [facility] Comment: Note: ??Total bilirubin higher than 20 m g/dL may lead to falsely low ionized calcium. CL Whole Blood 105 98 - 107 mmol/L [facility] Gluc Whole Bld 141 65 - 199 mg/dL [facility] Comment: Diabetes: >=200 mg/dL plus symp toms. Lactate WB 5.0 (Critical) 0.5 - 2.2 mmol/L [facility] Comment: Noted by instrumental teacher. Specimen Anatomical Collection Method Collection Time Receive d Time (Source) Location / / Volume Laterality Blood 01/23/2022 8:37 AM 2 8:37 EDT AM EDT Tex Robles MD CHEMISTRY ORDERABLES Performing Organization Address City/State/ZIP Code Phon [place] [facility] [place] [address] (ABNORMAL) BLOOD GAS 2 ARTERIAL (01/23/2022 7:59 AM EDT) Analysis Performed At Patho logist Time Signature pH Art 7.34 (L) 7.35 - [facility] 7.45 [facility] pCO2 Art 34 (L) 35 - 45 [facility] mmHg [facility] pO2 Art 105 (H) 85 - 104 [facility] HCO3 Art 18.1 (L) 20.0 - [facility] 26.0 [facility] mmol/[facility] BE Art -7.7 (L) -3.0 - 3.0 [facility] mmol/L [facility] Hgb Blood Gas 16.6 (H) 13.7 - [facility] 16.5 g/dL [facility] O2HB Art 97.0 94.0 - [facility] 97.0 % [facility] COHB Art 0.3 % [facility] Comment: Nonsmokers: 0.5-1.5% COHB Smokers: Variable, but usually less than 10% Toxic: 20-30% COHB Lethal: Greater than 60% COHB METHB Art 0.0 <=1.5 % [facility] Na Whole Blood 140 135 - 145 mmol/L [facility] K Whole Blood 4.5 3.5 - 5.0 mmol/L [facility] Comment: Please note: Patients with WBC >100,000 may have falsely elevated Potassium levels. Contact the Clinical Chemistry L aboratory if there are any questions. ICa Whole Blood 0.91 (Critical) 1.15 - 1.33 mmol/L [facility] Comment: Noted by instrumental teacher. Note: ??Total bilirubin higher than 20 m g/dL may lead to falsely low ionized calcium. CL Whole Blood 103 98 - 107 mmol/L [facility] Gluc Whole Bld 179 65 - 199 mg/dL [facility] Comment: Diabetes: >=200 mg/dL plus symp toms. Lactate WB 4.4 (Critical) 0.5 - 2.2 mmol/L [facility] Comment: Noted by instrumental teacher. Specimen Anatomical Collection Method Collection Time Receive d Time (Source) Location / / Volume Laterality Blood 01/23/2022 7:59 AM 7:59 EDT AM EDT Tex Robles MD CHEMISTRY ORDERABLES Performing Organization Address City/State/Z[place] [address] (ABNORMAL) POCT Glucose (01/23/2022 7:28 AM EDT) P athologist Signature POC Glucose 215 (H) 65 - 199 [facility] mg/dL [facility] Comment: Supplemental ranges: <140 mg/dL before meals <180 mg/dL all other times of the day Specimen Anatomical Collection Method Collection Time Receive d Time (Source) Location / / Volume Laterality Blood 01/23/2022 7:28 AM 7:28 EDT AM EDT Tex Robles MD POINT OF CARE TEST ORDERABLE S Performing Organization Address City/State/ZIP [place] [address] (ABNORMAL) Blood Gas Arterial ([facility]) (01/23/2022 7:21 AM EDT) Analysis Performed At Patho logist Time Signature pH Art 7.37 7.35 - [facility] 7.45 [facility] pCO2 Art 28 (L) 35 - 45 [facility] pO2 Art 96 85 - 104 [facility] HCO3 Art 15.7 (L) 20.0 - [facility] 26.0 [facility] mmol/L [facility] BE Art -9.6 (L) -3.0 - 3.0 [facility] mmol/L [facility] Hgb Blood Gas 16.4 13.7 - [facility] 16.5 g/dL [facility] O2HB Art 96.6 94.0 - [facility] 97.0 % [facility] COHB Art 0.3 % [facility] Comment: Nonsmokers: ??0.5-1.5% COHB Smokers: ??Variable, but usually less th an 10% Toxic: 20 - 30% COHB Lethal: ??Greater than 60% COHB METHB Art 0.2 <=1.5 % [facility] Na Whole Blood 137 135 - 145 mmol/L [facility] K Whole Blood 4.4 3.5 - 5.0 mmol/L [facility] Comment: Please note: ??Patients with WBC >100,00 0 may have falsely elevated Potassium levels. ??Contact the Clinical Chemistry Laboratory if there are any questions. ICa Whole Blood 0.90 (Critical) 1.15 - 1.33 mmol/L [facility] Comment: Called by: sharmin, Read back by: willie webb, Date/Time:01/23/22 07:38. Note: ??Total bilirubin higher than 20 m g/dL may lead to falsely low ionized calcium. CL Whole Blood 105 98 - 107 mmol/L [facility] Gluc Whole Bld 203 (H) 65 - 199 mg/dL [facility] Comment: Diabetes: >=200 mg/dL plus symp toms. Lactate WB 5.5 (Critical) 0.5 - 2.2 mmol/L [facility] Comment: Called by: sharmin, Read back by: pramod alfaro, Date/Time:01/23/22 07:38. FIO2 Art 30 % [facility] PF Ratio Art 320 [facility] Specimen Anatomical Collection Method Collection Time Receive d Time (Source) Location / / Volume Laterality Blood Arterial Draw / 01/23/2022 7:21 AM 2021 7:28 Unknown EDT AM EDT Resulting Agency Comment Spec In Lab Cristina Hillman APRN CHEMISTRY ORDERABLES Performing Organization Address City/State/[place] [address] (ABNORMAL) Phosphorus (01/23/2022 7:20 AM EDT) athologist Signature Phosphorus 6.1 (H) 2.5 - 4.5 [facility] mg/dL [facility] Specimen Anatomical Collection Method Collection Time Receive d Time (Source) Location / / Volume Laterality Blood 01/23/2022 7:20 AM 7:27 EDT AM EDT Resulting Agency Comment Spec In Lab Angelina Reynoso MD CHEMISTRY ORDERABLES Performing Organization Address City/State/ZIP Code Phon e Number [address] Magnesium (01/23/2022 7:20 AM EDT) P athologist Signature Magnesium 0.81 0.69 - 1.07 [facility]/L [facility] Specimen Anatomical Collection Method Collection Time Receive d Time (Source) Location / / Volume Laterality Blood 01/23/2022 7:20 AM 2 7:27 EDT AM EDT Resulting Agency Comment Spec In Lab Angelina Reynoso MD CHEMISTRY ORDERABLES Performing Organization Address City/[facility]/ZIP Code Phon e Number [address] (ABNORMAL) Creatinine (01/23/2022 7:20 AM EDT) Analysis Performed At Patho logist Time Signature Creatinine 3.84 (H) 0.80 - [facility] 1.50 mg/dL [facility] Estimated GFR 21 (L) >=60 [facility] [place] mL/min/1.7 [facility] 3 ?? [facility] Comment: This patient's estimated GFR [...] Location / / Volume Laterality Blood 01/23/2022 7:20 AM 2 7:27 EDT AM EDT Resulting Agency Comment Spec In Lab Angelina Reynoso MD CHEMISTRY ORDERABLES Performing Organization Address City/[facility]/ZIP Code Phon e Number [address] (ABNORMAL) Electrolytes panel (01/23/2022 7:20 AM EDT) P athologist Signature Sodium 141 135 - 145 [facility] mmol/L [facility] Potassium 4.6 3.5 - 5.0 [facility] mmol/L [facility] Comment: result rechecked-brian Please note: ??Patients with WBC >100,00 0 may have falsely elevated Potassium levels. ??For accurate Potassium quantif ication in these patients send serum separator tube (gold top) for subsequent determinations. ??Contact the Clinical Chemistry Laboratory if there are any qu estions. Chloride 106 98 - 107 mmol/L [facility] CO2 14 (L) 22 - 31 mmol/L [facility] Anion Gap 21 (H) 5 - 15 mmol/L [facility] Specimen Anatomical Collection Method Collection Time Receive d Time (Source) Location / / Volume Laterality Blood 01/23/2022 7:20 AM 7:27 EDT AM EDT Resulting Agency Comment Spec In Lab Angelina Reynoso MD CHEMISTRY ORDERABLES Performing Organization Address City/State/Z[place] [address] XR Hand Min 3 [...] who have questions please contact the health nursing care attendant that requested your imaging first. ? Electronically signed by: Jacky Mello MD, [facility] ([phone]), at 01/23/2022 11:07 AM Procedure Note Jacky Mello MD - 01/23/2022Format [...] ho have questions please contact the health nursing care attendant that requested your imaging first. Electronically signed by: Jacky Mello MD, [facility] ([phone]), at 01/23/2022 11:07 AM Tex Travis HARTLEY IMG DX ORDERABLES XR Chest One View (01/23/2022 6:32 AM EDT) Anatomical Region Laterality Modality Chest N/A Digital Radiography Specimen (Source) Anatomical Location Collection Method / Collectio n Time Received Time / Laterality Volume Impressions 01/23/2022 6:56 AM EDT Right IJ central venous line with catheter tip projecting over the lower SVC. Preliminary report signed by: Alcira pena at 01/23/2022 6:43 AM I have personally reviewed the image(s) and the resident's interpretation and agree with the findings, Ren Carmona at 01/23/2022 6:56 AM Thank you for letting us participate in the care of this patient. ??If you are a health care provider and have any questi ons regarding this report, please contact the number below. ??For patients who have questions please contact the health nursing care attendant that requested your imaging first. ? Electronically signed by: Rex Addison MD, [facility] ([phone]), at 01/23/2022 6:56 AM Narrative 01/23/2022 6:56 AM EDT EXAMINATION: XR CHEST ONE VIEW CLINICAL HISTORY: Central line placement TECHNIQUE: 1 view of the chest COMPARISON: Chest radiograph 01/23/[address] 01/23/2022 FINDINGS: Interval placement of right IJ central v enous line with catheter tip projecting over the lower SVC. Endotracheal tube wi th tip projecting 5.8 cm above the maia. Enteric tube courses below the d iaphragm, the tip is not within the [id number]. Upper retrocardiac opacity corresponding to partial collapse of the left lower lobe seen on CT from earlier today. Procedure Note Rex Addison MD - 01/23/2022 EXAMINATION: XR CHEST ONE VIEW CLINICAL HISTORY: Central line placement TECHNIQUE: 1 view of the chest COMPARISON: Chest radiograph 01/23/[address] 01/23/2022 FINDINGS: Interval placement of right IJ central v enous line with catheter tip projecting over the lower SVC. Endotracheal tube wi th tip projecting 5.8 cm above the maia. Enteric tube courses below the d iaphragm, the tip is not within the [id number]-[id number]-[id number]. Upper retrocardiac opacity corresponding to partial collapse of the left lower lobe seen on CT from earlier today. IMPRESSION Right IJ central venous line with cathet er tip projecting over the lower SVC. Preliminary report signed by: Alcira pena at 01/23/2022 6:43 AM I have personally reviewed the image(s) and the resident's interpretation and agree with the findings, Ren Carmona at 01/23/2022 6:56 AM Thank you for letting us participate in the care of this patient. If you are a health care provider and have any questi ons regarding this report, please contact the number below. For patients w ho have questions please contact the health nursing care attendant that requested your imaging first. Tex Travis HARTLEY IMG DX ORDERABLES XR Forearm Left (Generic) (01/23/2022 6:32 AM EDT) Anatomical Region Laterality Modality Forearm Left Digital Radiography Specimen (Source) Anatomical Location Collection Method / Collectio n Time Received Time / Laterality Volume Impressions 01/23/2022 7:14 AM EDT FINDINGS/IMPRESSION: No acute fracture of the radius or ulna seen. Diffuse soft tissue stranding and edema of the forearm. Preliminary report signed by: Alcira pena at 01/23/2022 6:55 AM I have [...] who have questions please contact the health nursing care attendant that requested your imaging first. ? Electronically signed by: Rex Addison MD, [facility] ([phone]), at 01/23/2022 7:14 AM Narrative 01/23/2022 7:14 AM EDT EXAMINATION: XR [...] of the forearm. Preliminary report signed by: Alcira pena at 01/23/2022 6:55 AM I have [...] ho have questions please contact the health nursing care attendant that requested your imaging first. Electronically signed by: Rex Addison MD, [facility] ([phone]), at 01/23/2022 7:14 AM Tex Travis HARTLEY IMG DX ORDERABLES CENTRAL LINE (01/23/2022 6:25 AM EDT) Narrative Cristina Hillman APRN - 01/23/2022 6:2 5 AM EDT Cristina Hillman APRN ? 01/23/2022 ??6:28 AM Central [...] yes Patient location at time of insertion: [address] Procedure Comments: Prior to dilation wire was visualized vi a ultrasound entering large, collapsible vessel in both transv erse and longitudinal planes. All ports had positive blood ret urn and were able to be flushed without difficulty. Cristina Hillman APRN Cristina Hillman APRN PROCEDURE/MINOR SURGICAL ORD ERABLES (ABNORMAL) Electrolytes panel (01/23/2022 6:00 AM EDT) athologist Signature Sodium 140 135 - 145 [facility] mmol/L [facility] Potassium 5.9 (H) 3.5 - 5.0 [facility] mmol/L [facility] Comment: Please note: ??Patients with WBC >100,00 0 may have falsely elevated Potassium levels. ??For accurate Potassium quantif ication in these patients send serum separator tube (gold top) for subsequent determinations. ??Contact the Clinical Chemistry Laboratory if there are any qu estions. Chloride 102 98 - 107 mmol/L [facility] CO2 15 (L) 22 - 31 mmol/L [facility] Anion Gap 23 (H) 5 - 15 mmol/L [facility] Specimen Anatomical Collection Method Collection Time Receive d Time (Source) Location / / Volume Laterality Blood 01/23/2022 6:00 AM 6:08 EDT AM EDT Resulting Agency Comment Spec In Lab Cristina Hillman APRN CHEMISTRY ORDERABLES Performing Organization Address City/State/Z[place] [address] (ABNORMAL) CK (01/23/2022 6:00 AM EDT) athologist Signature CK, Total 158,930 0 - 200 [facility] (H) unit/L [facility] Specimen Anatomical Collection Method Collection Time Receive d Time (Source) Location / / Volume Laterality Blood 01/23/2022 6:00 AM 2 6:08 EDT AM EDT Resulting Agency Comment Spec In Lab Gemma B Pentland LEVELER HELPER CHEMISTRY ORDERABLES Performing Organization Address City/State/Z[place] [address] (ABNORMAL) Troponin (01/23/2022 6:00 AM EDT) athologist Signature Troponin-T 0.35 (H) 0.00 - [facility] 0.00 ng/mL [facility] Comment: The 99th percentile for Troponin T is le ss than 0.01 ng/mL, any detectable cTnT concentration using this assay should be considered elevated. According to the third universal definit ion of myocardial infarction the following criteria with a clinical prese ntation consistent with acute myocardial ischemia meets the diagnosis for a myocardial infarction (NE). Detection of a rise and/or fall of [...] additional sample may be indicated. Reference: Third Stratford Definition of Myocardial Infarction. Journal of the [employer] 2012;60:1581-98 Specimen Anatomical Collection Method Collection Time Receive d Time (Source) Location / / Volume Laterality Blood 01/23/2022 6:00 AM 2 6:08 EDT AM EDT Resulting Agency Comment Spec In Lab Gemma B Pentland LEVELER HELPER CHEMISTRY ORDERABLES Performing Organization Address City/[facility]/Z[place] [address] Blood culture (01/23/2022 6:00 AM EDT) Patholo gist Method Time Signature Blood Culture No growth [facility] GILMORE at 5 days. [facility] Specimen Anatomical Collection Method Collection Time Receive d Time (Source) Location / / Volume Laterality Blood 01/23/2022 6:00 AM 2 6:18 EDT AM EDT Comment: unknown Resulting Agency Comment Spec In Lab Cristina Tongland LEVELER HELPER MICROBIOLOGY - BLOOD ORDERAB LES Performing Organization Address City/[facility]/[place] [address] (ABNORMAL) POCT Glucose (01/23/2022 4:58 AM EDT) athologist Signature POC Glucose 205 (H) 65 - 199 [facility] MANDO mg/dL [facility] Comment: Supplemental ranges: <140 mg/dL before meals <180 mg/dL all other times of the day Specimen Anatomical Collection Method Collection Time Receive d Time (Source) Location / / Volume Laterality Blood 01/23/2022 4:58 AM 2 4:58 EDT AM EDT Tex Robles MD POINT OF CARE TEST ORDERABLE S Performing Organization Address City/[facility]/[place] [address] Hepatitis B Surface Antibody (01/23/2022 4:49 AM EDT) athologist Signature HepB Surface 418.0 IU/L [facility] Ab Quant [facility] Comment: HepB Surface Ab Quant: Unvaccinated: < 8.5 IU/L Vaccinated: > 11.5 IU/L HepB Surface Ab Positive [facility] Comment: Patient is considered to be immune to HB V infection. Expected Results: Vaccinated: Positive Unvaccinated: Negative Specimen Anatomical Collection Method Collection Time Receive d Time (Source) Location / / Volume Laterality Blood 01/23/2022 4:49 AM 2 4:56 EDT AM EDT Resulting Agency Comment Spec In Lab Cristina Hillman LEVELER HELPER IMMUNOLOGY ORDERABLES Performing Organization Address City/[facility]/ZIP [place] [address] Hepatitis C Antibody (01/23/2022 4:49 AM EDT) Analysis Performed At Patho logist Time Signature Hepatitis C Ab Negative Negative [facility] Specimen Anatomical Collection Method Collection Time Receive d Time (Source) Location / / Volume Laterality Blood 01/23/2022 4:49 AM 2 4:56 EDT AM EDT Resulting Agency Comment Spec In Lab [facility] B Pentland LEVELER HELPER IMMUNOLOGY ORDERABLES Performing Organization Address City/[facility]/ZIP Code Phon e Number [place] [phone] (ABNORMAL) Potassium (01/23/2022 4:49 AM EDT) P athologist Signature Potassium 6.6 3.5 - 5.0 [facility] (Critical) mmol/L [facility] Comment: Called by: kvng, Read [...] Comment Spec In Lab Gemma B Pentland LEVELER HELPER CHEMISTRY ORDERABLES Performing Organization Address City/[facility]/Z[place] [address] (ABNORMAL) Hemogram (01/23/2022 4:49 AM EDT) Patholo gist Method Time Signature WBC 12.1 (H) 4.0 - 9.5 [facility] MANDO x10(3)/[facility] LABORATORY RBC 5.49 4.58 - JOS[facility] MANDO 5.54 [facility] x10(6)/[facility] LABORATORY Hemoglobin 17.6 (H) 13.7 - [facility] MAND[place] 16.5 g/dL [facility] Hematocrit 50.3 (H) 40.5 - [place] [place] 48.5 % [facility] MCV 91.6 82.9 - [place] [place] 93.1 [facility] LABORATORY MCH 32.1 27.5 - [place] [place] 32.1 pg [facility] MCHC 35.0 32.0 - JOS[facility] [place] 35.7 g/dL [facility] Platelets 184 145 - 357 [facility]ZM[facility] x10(3)/[facility] LABORATORY RDWSD 41.9 36.0 - [place] [place] 45.0 [facility] LABORATORY RDWCV 12.3 11.4 - [facility] [place] 13.8 % [facility] MPV 9.7 7.6 - 12.9 J[facility] GILMORE [facility] LABORATORY nRBC % Auto 0.2 % [facility] nRBC Abs Auto 0.030 (H) 0.000 - JOSH GILMORE 0.000 [facility] x10(3)/[facility] LABORATORY Specimen Anatomical Collection Method Collection Time Receive d Time (Source) Location / / Volume Laterality Blood 01/23/2022 4:49 AM 4:56 EDT AM EDT Resulting Agency Comment Spec In Lab Cristina Hillman APRN HEMATOLOGY ORDERABLES Performing Organization Address City/State/Z[place] [address] Upper Extremity w Contrast Left (01/23/2022 [...] who have questions please contact the health nursing care attendant that requested your imaging first. ? Electronically signed by: Rex Addison MD, [facility] ([phone]), at 01/23/2022 4:58 AM Narrative 01/23/2022 4:58 AM EDT EXAMINATION: CT [...] ho have questions please contact the health nursing care attendant that requested your imaging first. Electronically signed by: Rex Addison MD, [facility] ([phone]), at 01/23/2022 4:58 AM Cristina Hillman APRN IMG CT ORDERABLES CT Chest wo Contrast [...] who have questions please contact the health nursing care attendant that requested your imaging first. ? Electronically signed by: Rex Addison MD, [facility] ([phone]), at 01/23/2022 4:39 AM Narrative 01/23/2022 4:39 AM EDT EXAMINATION: CT CHEST WO CONTRAST (GENERIC) CLINICAL HISTORY: Aspiration Hypoxia [id number] to XR imaging. Presenting with cardiac arrest s/p ROSC, unclear etiology. TECHNIQUE: Noncontrast CT chest. Absence of intravenous contrast renders suboptimal assessment of potential paren chymal and mediastinal masses as well as hilar lymphadenopathy, and blood vessels and cardiovascular structures. COMPARISON: None Procedure Note Rex Addison MD - 01/23/2022 EXAMINATION: CT CHEST WO CONTRAST (GENER IC) CLINICAL HISTORY: Aspiration Hypoxia [id number] to XR imaging. Presenting with cardiac arrest [...] ho have questions please contact the health nursing care attendant that requested your imaging first. Electronically signed by: Rex Addison MD, [facility] ([phone]), at 01/23/2022 4:39 AM [facility] CT Lower Extremity wo Contrast Left (Generic) [...] who have questions please contact the health nursing care attendant that requested your imaging first. ? Electronically signed by: Melita Mills MD, [facility] ([phone]), at 01/24/2022 1:45 PM Narrative 01/24/2022 1:45 PM EDT EXAMINATION: CT [...] collection/abscess seen. Soft tissues of pelvis- a Ayala in collapsed urinary bladder is seen. No [...] collection/abscess seen. Soft tissues of pelvis- a Ayala in collapsed urinary bladder is seen. No [...] ho have questions please contact the health nursing care attendant that requested your imaging first. Gemma B Pentland LEVELER HELPER IMG CT ORDERABLES CT Head wo Contrast [...] who have questions please contact the health nursing care attendant that requested your imaging first. ? Electronically signed by: Rex Addison MD, [facility] ([phone]), at 01/23/2022 4:27 AM Narrative 01/23/2022 4:27 AM EDT EXAMINATION: CT HEAD WO CONTRAST (GENERIC) CLINICAL HISTORY: Altered mental status, nontraumatic (Ped 0-18y) s/p Cardiac arrest with ROSC. Poor menta l status concerning for possible anoxic injury vs ICH TECHNIQUE: CT head performed without intravenous co ntrast administration. COMPARISON: CT head 04/22/2013 FINDINGS: Focal hypoattenuation within the globi p allidi bilaterally. Alegria-white interface is the remainder of the brain [...] hypoattenuation within the globi p allidi bilaterally. Alegria-white interface is the remainder of the brain [...] ho have questions please contact the health nursing care attendant that requested your imaging first. Electronically signed by: Rxe Addison MD, [facility] ([phone]), at 01/23/2022 4:27 AM Cristina Hillman APRN IMG CT ORDERABLES Insert Arterial Line (01/23/2022 2:16 AM EDT) Narrative Cristina Hillman APRN - 01/23/2022 2:1 6 AM EDT Cristina Hillman APRN ? 01/23/2022 ??2:18 AM Arterial [...] p lanned procedure. ?? Hand Hygiene: The director of business applications did perform h and hygiene prior to [...] ease. Good wave form. Procedure Comments: N/A Jaquelinma B Rafy LEVELER HELPER PROCEDURE/MINOR SURGICAL ORD ERABLES XR Abdomen 1 view (Generic) (01/23/2022 2:10 AM EDT) Anatomical Region Laterality Modality Abdomen N/A Digital Radiography Specimen (Source) Anatomical Location Collection Method / Collectio n Time Received Time / Laterality Volume Impressions 01/23/2022 8:39 AM EDT The tip of the NG tube is in the distal stomach with redundant tubing looped in the fundus. Thank you for letting us participate in the care of this patient. ??If you are a health care provider and have any questi ons regarding this report, please contact the number below. ??For patients who have questions please contact the health nursing care attendant that requested your imaging first. ? Electronically signed by: Jacky Mello MD, [facility] ([phone]), at 01/23/2022 8:39 AM Narrative 01/23/2022 8:39 AM EDT EXAMINATION: XR ABDOMEN 1 VIEW (GENERIC) CLINICAL HISTORY: s/p OGT placement TECHNIQUE: AP supine view lower chest through mid a bdomen. COMPARISON: 04/26/2021. FINDINGS: The tip of an NG tube is in the distal s tomach with a redundant loop in the fundus of the stomach. No dilated loops of bowel are seen in the upper abdomen. The heart is normal in size and the lung bases are clear. Procedure Note Jacky Mello MD - 01/23/2022Format ting of this note might be different from the original. EXAMINATION: XR ABDOMEN 1 VIEW (GENERIC) CLINICAL HISTORY: s/p OGT placement TECHNIQUE: AP supine view lower chest through mid a bdomen. COMPARISON: 04/26/2021. FINDINGS: The tip of an NG tube is in the distal s tomach with a redundant loop in the fundus of the stomach. No dilated loops of bowel are seen in the upper abdomen. The heart is normal in size and the lung bases are clear. IMPRESSION The tip of the NG tube is in the distal stomach with redundant tubing looped in the fundus. Thank you for letting us participate in the care of this patient. If you are a health care provider and have any questi ons regarding this report, please contact the number below. For patients w ho have questions please contact the health nursing care attendant that requested your imaging first. Electronically signed by: Jacky Mello MD, [facility] ([phone]), at 01/23/2022 8:39 AM Gemma B Alycialand LEVELER HELPER IMG DX ORDERABLES XR Chest One View (01/23/2022 2:10 AM EDT) Anatomical Region Laterality Modality Chest N/A Digital Radiography Specimen (Source) Anatomical Location Collection Method / Collectio n Time Received Time / Laterality Volume Impressions 01/23/2022 2:50 AM EDT ET tube with its tip in appropriate position. Thank you for letting us participate in the care of this patient. ??If you are a health care provider and have any questi ons regarding this report, please contact the number below. ??For patients who have questions please contact the health nursing care attendant that requested your imaging first. ? Narrative 01/23/2022 2:50 AM EDT EXAMINATION: XR CHEST ONE VIEW CLINICAL HISTORY: Known COVID infection. s/p intubation TECHNIQUE: Portable AP chest radiograph was obtained. COMPARISON: Outside radiographs dated 1923 FINDINGS: ET tube with its tip approxima tely 5.6 cm above the maia. Enteric tube is seen coursing through the esopha saige with sidehole in the gastric body and tip not included in the [id number] w. No focal consolidation.No sizable pleura l effusion or pneumothorax.Heart and mediastinal contours are unremarkable.No free air under the diaphragm. Procedure Note Sona Haji MD - 01/23/2022Formatt ing of this note might be different from the original. EXAMINATION: XR CHEST ONE VIEW CLINICAL HISTORY: Known COVID infection. s/p intubation TECHNIQUE: Portable AP chest radiograph was obtained. COMPARISON: Outside radiographs dated 1923 FINDINGS: ET tube with its tip approxima tely 5.6 cm above the maia. Enteric tube is seen coursing through the esopha saige with sidehole in the gastric body and tip not included in the [id number]-pu-haq w. No focal consolidation.No sizable pleura l effusion or pneumothorax.Heart and mediastinal contours are unremarkable.No free air under the diaphragm. IMPRESSION ET tube with its tip in appropriate posi tion. Thank you for letting us participate in the care of this patient. If you are a health care provider and have any questi ons regarding this report, please contact the number below. For patients w ho have questions please contact the health nursing care attendant that requested your imaging first. Gemma B Pentland LEVELER HELPER IMG DX ORDERABLES APTT (01/23/2022 1:55 AM EDT) P athologist Signature PTT 25 25 - 37 sec [facility] Comment: The PTT is NOT appropriate for heparin m onitoring. Use the Anti-Xa level for heparin monitoring (HEP UFH) or LMWH mon itoring (HEP LMW). A PTT less than 37 seconds generally indicates adequate hem ostasis. Specimen Anatomical Collection Method Collection Time Receive d Time (Source) Location / / Volume Laterality Blood 01/23/2022 1:55 AM 2 1:59 EDT AM EDT Resulting Agency Comment Spec In Lab Tex Robles MD HEMATOLOGY ORDERABLES Performing Organization Address City/[facility]/[place] [address] (ABNORMAL) Prothrombin Time (01/23/2022 1:55 AM EDT) P athologist Signature PT 14.4 (H) 9.4 - 12.5 [facility] LABORATORY INR 1.3 [facility] Comment: An INR <2.0 indicates [...] Location / / Volume Laterality Blood 01/23/2022 1:55 AM 2 1:59 EDT AM EDT Resulting Agency Comment Spec In Lab Tex Robles MD HEMATOLOGY ORDERABLES Performing Organization Address City/[facility]/[place] [address] Fibrinogen (01/23/2022 1:55 AM EDT) P athologist Signature Fibrinogen 349 200 - 393 [facility] mg/dL [facility] Comment: A fibrinogen level >100 mg/dL is adequat e for hemostasis in most patients without underlying bleeding disorders. Specimen Anatomical Collection Method Collection Time Receive d Time (Source) Location / / Volume Laterality Blood 01/23/2022 1:55 AM 2 1:59 EDT AM EDT Resulting Agency Comment Spec In Lab Tex Robles MD HEMATOLOGY ORDERABLES Performing Organization Address City/[facility]/[place] [address] (ABNORMAL) Rapid Drug Screen w/o Confirmation, Urine (01/23/2022 1:45 AM EDT) [facility] Method Time Signature U Barbiturates Presumptive None JOSH Screen Pos (A) Detected [facility] Comment: The barbiturate screen [...] Benzodiazepines Screen Presumptive Pos (A) None Detected [facility] Comment: The benzodiazepines screen detects [...] U Cocaine Screen None Detected None Detected [facility] Comment: The cocaine metabolites screen detects b enzoylecgonine (Cocaine Metabolite) at concentrations >150 ng/mL. A ? Presumptive Positive? result indicates that the screening result was positive but has not yet been confirmed by a highly-specific method. As with any screen, occasional false positive re sults from cross-reacting substances may occur. Not for Medico-Legal Purposes. U Methadone Metabolites None Detected None Detected [facility] Comment: The methadone metabolite screen detects EDDP (major methadone metabolite) at concentrations >100 ng/mL. A ? Presumptive Positive? result indicates that the screening result was positive but has not yet been confirmed by a highly-specific method. As with any screen, occasional false positive re sults from cross-reacting substances may occur. Not for Medico-Legal Purposes. U Opiate Screen None Detected None Detected [facility] Comment: The opiates screen detects opiates at co ncentrations >300 ng/mL. Please note that oxycodone, oxymorphone, fentanyl, tramadol, and other synthetic opioids are not detected by [facility] opiate screen. A ? Presumptive Positive? result indicates that the screening result was positive but has not yet been confirmed by a highly-specific method. As with any screen, occasional false positive re sults from cross-reacting substances may occur. Not for Medico-Legal Purposes. U Cannabinoid Screen None Detected None Detected [facility] Comment: The marijuana metabolites screen detects the THC metabolite (91-xkp-7-carboxy-delta 9-THC) at concen trations >20 ng/mL. A ? Presumptive Positive? result indicates that the screening result was positive but has not yet been confirmed by a highly-specific method. As with any screen, occasional false positive re sults from cross-reacting substances may occur. Not for Medico-Legal Purposes. U Oxycodone Screen Presumptive Pos (A) None Detected [facility] Comment: The oxycodone screen detects oxycodone a nd oxymorphone at concentrations >100 ng/mL. A ? Presumptive Positive? result indicates that the screening result was positive but has not yet been confirmed by a highly-specific method. As with any screen, occasional false positive re sults from cross-reacting substances may occur. Not for Medico-Legal Purposes. U Buprenorphine Screen None Detected None Detected [facility] Comment: The buprenorphine screen detects bupreno rphine at concentrations >5 ng/mL. A ? Presumptive Positive? result indicates that the screening result was positive but has not yet been confirmed by a highly-specific method. As with any screen, occasional false positive re sults from cross-reacting substances may occur. Not for Medico-Legal Purposes. U Fentanyl Screen Presumptive Pos (A) None Detected [facility] Comment: The fentanyl screen detects fentanyl at concentrations >2 ng/mL. A ? Presumptive Positive? result indicates that the screening result was positive but has not yet been confirmed by a highly-specific method. As with any screen, occasional false positive re sults from cross-reacting substances may occur. Not for Medico-Legal Purposes. U Tricyclics Screen None Detected None Detected [facility] Comment: The tricyclics screen detects tricyclic [...] U Ethanol Screen None Detected None Detected [facility] Comment: This urine ethanol assay detect s ethanol at concentrations >/= 100 mg/L. U Amphetamines Screen None Detected None Detected [facility] Comment: The amphetamine screen detects [...] Screen None Detected None Detected Ren [facility] Comment: No adulteration or dilution of this urin e sample was detected. All urine samples submitted for urine drugs of abu se analysis are tested for creatinine concentration, pH, and for the presence of oxidants, nitrites, and chromate. Specimen Anatomical Collection Method Collection Time Receive d Time (Source) Location / / Volume Laterality Urine 01/23/2022 1:45 AM 2 1:52 EDT AM EDT Resulting Agency Comment Spec In Lab Cristina Hillman APRN CHEMISTRY ORDERABLES Performing Organization Address City/State/Z[place] [address] Rapid Drug Screen, Urine (MEGHNA Request) (01/23/2022 1:45 AM EDT) [facility] Method Time Signature MEGHNA Conf No [facility] LABORATORY MEGHNA Requested See Comment [facility] Comment: Refer to Rapid Drug Screen w/o Confirmation, Urine for results. Specimen Anatomical Collection Method Collection Time Receive d Time (Source) Location / / Volume Laterality Urine 01/23/2022 1:45 AM 2 1:52 EDT AM EDT Resulting Agency Comment Spec In Lab Cristina Hillman LEVELER HELPER URINE ORDERABLES Performing Organization Address City/State/ZIP [place] [address] (ABNORMAL) _Urinalysis with microscopic (01/23/2022 1:30 AM EDT) [facility] Method Time Signature Glucose UA Negative Negative [facility] mg/dL [facility] Protein UA >=300 (A) Negative [facility] Bilirubin UA Moderate (A) Negative [facility] mg/dL [facility] Comment: Clinical correlation required for positi ve Urine Bilirubin results as false positive may occur with some drugs and d rug related products. If a false positive is suspected a serum total bili villaseñor should be considered if clinically indicated. Urobilinogen UA Normal Normal mg/dL [facility] pH UA 6.5 5.0 - 8.0 [facility] Blood UA Large (A) Negative mg/dL [facility] Ketones UA Trace (A) Negative mg/dL [facility] Nitrite UA Positive (A) Negative [facility] Leukocytes UA Negative Negative [facility] LABORATORY Appearance UA Cloudy (A) Clear [facility] Spec [place] UA >=1.030 (A) 1.006 - 1.030 [facility] Color UA Brown (A) [facility] RBC UA 2 0 - 3 /HPF [facility] Comment: Interpret with caution, manual microscopic results are from an unspun specimen. WBC UA <1 0 - 3 /HPF [facility] Comment: Interpret with caution, manual microscopic results are from an unspun specimen. Bacteria UA Many (A) None /HPF [facility] Comment: Interpret with caution, manual microscopic results are from an unspun specimen. Squam Epith UA 1 <=4 /HPF [facility] Comment: Interpret with caution, manual microscopic results are from an unspun specimen. Hyaline Cast UA <1 0 - 2 /LPF [facility] Comment: Interpret with caution, manual microscopic results are from an unspun specimen. Amorph Mila UA Many (A) None /HPF [facility] Comment: Interpret with caution, manual microscopic results are from an unspun specimen. Specimen Anatomical Collection Method Collection Time Receive d Time (Source) Location / / Volume Laterality Urine 01/23/2022 1:30 AM 2 1:41 EDT AM EDT Resulting Agency Comment Spec In Lab Gemma B Pentland LEVELER HELPER URINE ORDERABLES Performing Organization Address City/[facility]/[place] [address] Blood culture (01/23/2022 1:26 AM EDT) [facility] Sajan Method Time Signature Blood Culture No growth [facility] at 5 days. [facility] Specimen Anatomical Collection Method Collection Time Receive d Time (Source) Location / / Volume Laterality Blood 01/23/2022 1:26 AM 2 1:38 EDT AM EDT Comment: r wrist Resulting Agency Comment Spec In Lab Gemma B Pentland LEVELER HELPER MICROBIOLOGY - BLOOD ORDERAB LES Performing Organization Address City/[facility]/[place] [address] (ABNORMAL) BLOOD GAS 2 ARTERIAL (01/23/2022 1:25 AM EDT) [facility] Method Time Signature pH Art 7.32 (L) 7.35 - [facility] 7.45 [facility] pCO2 Art 33 (L) 35 - 45 [facility] mmHg [facility] pO2 Art 68 (L) 85 - 104 [facility] mmHg [facility] HCO3 Art 16.8 (L) 20.0 - [facility] 26.0 [facility] mmol/L [facility] BE Art -9.3 (L) -3.0 - 3.0 [facility] mmol/L [facility] Hgb Blood Gas 20.4 13.7 - [facility] (Critical) 16.5 g/dL [facility] Comment: Noted by instrumental teacher. O2HB Art 92.4 (L) 94.0 - 97.0 % [facility] COHB Art 0.2 % [facility] Comment: Nonsmokers: 0.5-1.5% COHB Smokers: Variable, but usually less than 10% Toxic: 20-30% COHB Lethal: Greater than 60% COHB METHB Art 0.7 <=1.5 % [facility] Na Whole Blood 141 135 - 145 mmol/L [facility] K Whole Blood 5.3 (H) 3.5 - 5.0 mmol/L [facility] Comment: Please note: Patients with WBC >100,000 may have falsely elevated Potassium levels. Contact the Clinical Chemistry L aboratory if there are any questions. ICa Whole Blood 0.97 (L) 1.15 - 1.33 mmol/L [facility] Comment: Note: ??Total bilirubin higher than 20 m g/dL may lead to falsely low ionized calcium. CL Whole Blood 106 98 - 107 mmol/L [facility] Gluc Whole Bld 158 65 - 199 mg/dL [facility] Comment: Diabetes: >=200 mg/dL plus symp toms. Lactate WB 4.1 (Critical) 0.5 - 2.2 mmol/L [facility] Comment: Noted by instrumental teacher. FIO2 Art 75 % [facility] PF Ratio Art 91 [facility] Specimen Anatomical Collection Method Collection Time Receive d Time (Source) Location / / Volume Laterality Blood 01/23/2022 1:25 AM 2 1:25 EDT AM EDT Tex Robles MD CHEMISTRY ORDERABLES Performing Organization Address City/State/Z[place] [address] EKG 12 Lead (01/23/2022 12:46 AM EDT) Component Value Ref Range Test Analysis Performed Pathologis t Method Time At Signature Ventricular rate 147 BPM MUSE SYSTEM Atrial Rate 147 BPM MUSE SYSTEM P-R Interval 130 ms MUSE SYSTEM QRS Duration 84 ms MUSE SYSTEM Q-T Interval 268 ms MUSE SYSTEM QTC Calculated 419 ms MUSE SYSTEM (Bezet) Calculated P [place] 60 degrees MUSE SYSTEM Calculated R [place] 42 degrees MUSE SYSTEM Calculated T [place] 28 degrees MUSE SYSTEM INTERPRETATION Sinus tachycardia MUSE SY STEM Nonspecific ST abnormality Abnormal ECG When compared with ECG of 26-APR-2021 21:48, Vent. rate has increased BY ??90 BPM Nonspecific T wave abnormality has repla naveed inverted T waves in Inferior leads Confirmed by MD HILL SALVATORE ([id number]) on 01/23/2022 12:39:5 7 PM Specimen Anatomical Collection Method Collection Time Receive d Time (Source) Location / / Volume Laterality 01/23/2022 12:46 01/23/2022 AM EDT 12:39 PM EDT Gemma B Pentland LEVELER HELPER ECG ORDERABLES Performing Organization Address City/State/ZIP Code Phon e Number MUSE SYSTEM T4, free (01/23/2022 12:45 AM EDT) P athologist Signature Free T4 1.19 0.93 - 1.70 [facility] ng/dL [facility] Comment: Reference Interval (ng/dL): Females: ??First Trimester: 0.97-1.68 ??Second Trimester: 0.77-1.51 ??Third Trimester: 0.77-1.49 Specimen Anatomical Collection Method Collection Time Receive d Time (Source) Location / / Volume Laterality Blood 01/23/2022 12:45 01/23/2022 1:13 AM EDT AM EDT Resulting Agency Comment Spec In Lab Gemma B Pentland LEVELER HELPER CHEMISTRY ORDERABLES Performing Organization Address City/State/ZIP [place] [address] Triglyceride (01/23/2022 12:45 AM EDT) P athologist Signature Triglycerides 273 mg/dL [facility] Comment: Average Risk/Lower Risk: <150 mg/dL Borderline High Risk: 150-199 mg/dL High Risk: 200-499 mg/dL Very High Risk: >kc=027 mg/dL Specimen Anatomical Collection Method Collection Time Receive d Time (Source) Location / / Volume Laterality Blood Venous Draw / 01/23/2022 12:45 01/23/2022 1:13 Unknown AM EDT AM EDT Resulting Agency Comment Spec In Lab Cristina Hillman APRN CHEMISTRY ORDERABLES Performing Organization Address City/[facility]/ZIP Code Phon e Number [address] Type and Screen Validity (01/23/2022 12:45 AM EDT) [facility] Method Time Signature T&S only valid [facility] at [facility] Comment: This Type and Screen result is only valid at the [facility] Specimen Anatomical Collection Method Collection Time Receive d Time (Source) Location / / Volume Laterality Blood 01/23/2022 12:45 01/23/2022 AM EDT 12:51 AM EDT Resulting Agency Comment Spec In Lab Cristina Hillman APRN BLOOD BANK ORDERABLES Performing Organization Address City/[facility]/ZIP Code Phon e Number [address] Scan, Peripheral Blood (01/23/2022 12:45 AM EDT) athologist Signature Plat Estimate Normal [facility] RBC Morphology Normal [facility] Specimen Anatomical Collection Method Collection Time Receive d Time (Source) Location / / Volume Laterality Blood 01/23/2022 12:45 01/23/2022 1:08 AM EDT AM EDT Resulting Agency Comment Spec In Lab Cristina [facility] LEVELER HELPER HEMATOLOGY ORDERABLES Performing Organization Address City/[facility]/ZIP [place] [address] (ABNORMAL) Differential, Automated (01/23/2022 12:45 AM EDT) [facility] Method Time Signature Neutrophils % 71.4 % [facility] Neutr Abs (ANC) 16.11 (H) 1.70 - [facility] 6.10 [facility] x10(3)/[facility] LABORATORY Lymphocytes % 17.4 % [facility] Lymphocytes Abs 3.9 (H) 0.9 - 3.2 [facility] x10(3)/[facility] LABORATORY Monocytes % 9.3 % [facility] Monocyte Abs 2.1 (H) 0.3 - 0.9 [facility] x10(3)/[facility] LABORATORY Eosinophils % 0.0 % [facility] Eosinophils Abs 0.0 0.0 - 0.4 [facility] x10(3)/[facility] LABORATORY Basophils % 0.5 % [facility] Basophils Abs 0.1 0.0 - 0.1 [facility] x10(3)/[facility] LABORATORY Immature Gran % 1.40 % [facility] Comment: Immature granulocytes(IG's)percentage an d absolute count will include metamyelocytes, myelocytes, and promyelo cytes. Blood smears from CBCs yielding IG's will be scanned manually for concor dance. If this scan disagrees with the automated IG or if promyelocytes are not ed, a manual differential will be performed. Gemini Gran Abs 0.31 (H) 0.00 - 0.04 x10(3)/[facility] LABORATORY Specimen Anatomical Collection Method Collection Time Receive d Time (Source) Location / / Volume Laterality Blood 01/23/2022 12:45 01/23/2022 1:08 AM EDT AM EDT Resulting Agency Comment Spec In Lab Cristina Hillman APRN HEMATOLOGY ORDERABLES Performing Organization Address City/State/Z[place] [address] (ABNORMAL) Hemogram (01/23/2022 12:45 AM EDT) P athologist Signature WBC 22.6 (H) 4.0 - 9.5 [facility] x10(3)/[facility] LABORATORY RBC 6.64 (H) 4.58 - [facility] 5.54 [facility] x10(6)/[facility] LABORATORY Hemoglobin 21.5 13.7 - [facility] (Critical) 16.5 g/dL [facility] Comment: Called by: HERMAN, Read back by: Halley Hoyt, Date/Time:01/23/22 01:33. Corrected from 21.5 g/dL [CRIT] on 01/23 1:33:32 EDT by Shelli Sauceda Hematocrit 63.2 (H) 40.5 - 48.5 % [facility] MCV 95.2 (H) 82.9 - 93.1 [facility] LABORATORY MCH 32.4 (H) 27.5 - 32.1 pg [facility] MCHC 34.0 32.0 - 35.7 g/dL [facility] Platelets 269 145 - 357 x10(3)/[facility] LABORATORY RDWSD 43.9 36.0 - 45.0 [facility] LABORATORY RDWCV 12.3 11.4 - 13.8 % [facility] MPV 9.7 7.6 - 12.9 [facility] LABORATORY nRBC % Auto 0.3 % [facility] nRBC Abs Auto 0.060 (H) 0.000 - 0.000 x10(3)/[facility] LABORATORY Specimen Anatomical Collection Method Collection Time Receive d Time (Source) Location / / Volume Laterality Blood 01/23/2022 12:45 01/23/2022 1:08 AM EDT AM EDT Resulting Agency Comment Spec In Lab Gemma B Pentland LEVELER HELPER HEMATOLOGY ORDERABLES Performing Organization Address City/[facility]/[place] [address] ABORH Recheck Status (01/23/2022 12:45 AM EDT) [facility] gist Method Time Signature ABORH Recheck Order Placed [facility] LABORATORY ABORH Type Complete [facility] LABORATORY Specimen Anatomical Collection Method Collection Time Receive d Time (Source) Location / / Volume Laterality Blood 01/23/2022 12:45 01/23/2022 AM EDT 12:51 AM EDT Resulting Agency Comment Spec In Lab Gemma B Pentland LEVELER HELPER BLOOD BANK ORDERABLES Performing Organization Address City/[facility]/[place] [address] Antibody screen (01/23/2022 12:45 AM EDT) Patholo gist Method Time Signature Ab Screen Negative [facility] LABORATORY Expires at 01/26/2022 [facility] [id number] on: [facility] Specimen Anatomical Collection Method Collection Time Receive d Time (Source) Location / / Volume Laterality Blood 01/23/2022 12:45 01/23/2022 AM EDT 12:51 AM EDT Resulting Agency Comment Spec In Lab Gemma B Pentland LEVELER HELPER BLOOD BANK ORDERABLES Performing Organization Address City/[facility]/ZIP Code Phon e Number [address] ABO/Rh Typing (01/23/2022 12:45 AM EDT) P athologist Signature ABORh Type A Pos [facility] Specimen Anatomical Collection Method Collection Time Receive d Time (Source) Location / / Volume Laterality Blood 01/23/2022 12:45 01/23/2022 AM EDT 12:51 AM EDT Resulting Agency Comment Spec In Lab Gemma B Pentland LEVELER HELPER BLOOD BANK ORDERABLES Performing Organization Address City/[facility]/ZIP Code Phon e Number [address] (ABNORMAL) Basic Metabolic Panel (non-fasting) (01/23/2022 12:45 AM EDT) P athologist Signature Glucose Lvl 143 65 - 199 [facility] mg/dL [facility] Comment: Diabetes: >=200 mg/dL plus symp toms BUN 47 (H) 10 - 20 mg/dL [facility] Creatinine 4.42 (H) 0.80 - 1.50 mg/dL [facility] Sodium 142 135 - 145 mmol/L [facility] Potassium 7.6 (Critical) 3.5 - 5.0 mmol/L [facility] Comment: Called by: , Read back by: halley hoyt, Date/Time:01/23/22 02:03_. Please note: ??Patients with WBC >100,00 0 may have falsely elevated Potassium levels. ??For accurate Potassium quantif ication in these patients send serum separator tube (gold top) for subsequent determinations. ??Contact the Clinical Chemistry Laboratory if there are any qu estions. Chloride 102 98 - 107 mmol/L [facility] CO2 17 (L) 22 - 31 mmol/L [facility] Anion Gap 23 (H) 5 - 15 mmol/L [facility] Calcium 5.8 (Critical) 8.5 - 10.5 mg/dL [facility] Comment: Called by: kvng, Read back by: manny ruiz, Date/Time:01/23/22 02:03_. Estimated GFR 17 (L) >=60 mL/min/1.73 m?? [facility] Comment: This patient's estimated GFR [...] Organization Address City/State/Z[place] [address] (ABNORMAL) Phosphorus (01/23/2022 12:45 AM EDT) P athologist Signature Phosphorus 10.0 2.5 - 4.5 [facility] (Critical) mg/dL [facility] Comment: Called by: kvng, Read back by: manny ruiz, Date/Time:01/23/22 02:03_. Specimen Anatomical Collection Method Collection Time Receive d Time (Source) Location / / Volume Laterality Blood 01/23/2022 12:45 01/23/2022 1:08 AM EDT AM EDT Resulting Agency Comment Spec In Lab Gela Novak MD CHEMISTRY ORDERABLES Performing Organization Address City/[facility]/ZIP Code Phon e Number [address] (ABNORMAL) Magnesium (01/23/2022 12:45 AM EDT) athologist Signature Magnesium 1.08 (H) 0.69 - 1.07 [facility] mmol/L [facility] Specimen Anatomical Collection Method Collection Time Receive d Time (Source) Location / / Volume Laterality Blood 01/23/2022 12:45 01/23/2022 1:08 AM EDT AM EDT Resulting Agency Comment Spec In Lab Gela Novak MD CHEMISTRY ORDERABLES Performing Organization Address City/[facility]/[place] [address] (ABNORMAL) TSH [place] (01/23/2022 12:45 AM EDT) athologist Signature TSH 7.69 (H) 0.27 - 4.20 [facility] m[facility] Comment: Reference Interval (mcIU/mL): Females: ??First Trimester: 0.23-3.88 ??Second Trimester: 0.22-3.90 ??Third Trimester: 0.44-4.66 Specimen Anatomical Collection Method Collection Time Receive d Time (Source) Location / / Volume Laterality Blood 01/23/2022 12:45 01/23/2022 1:08 AM EDT AM EDT Resulting Agency Comment Spec In Lab Cristina Hillman APRN CHEMISTRY ORDERABLES Performing Organization Address City/[facility]/[place] [address] (ABNORMAL) CK (01/23/2022 12:45 AM EDT) athologist Signature CK, Total >[id number] 0 - 200 [facility] (H) unit/L [facility] Specimen Anatomical Collection Method Collection Time Receive d Time (Source) Location / / Volume Laterality Blood 01/23/2022 12:45 01/23/2022 1:08 AM EDT AM EDT Resulting Agency Comment Spec In Lab Gemma B Pentland LEVELER HELPER CHEMISTRY ORDERABLES Performing Organization Address City/State/Z[place] [address] (ABNORMAL) Troponin (01/23/2022 12:45 AM EDT) athologist Signature Troponin-T 0.43 (H) 0.00 - [facility]ILMORE 0.00 ng/mL [facility] Comment: The 99th percentile for Troponin T is le ss than 0.01 ng/mL, any detectable cTnT concentration using this assay should be considered elevated. According to the third universal definit ion of myocardial infarction the following criteria with a clinical prese ntation consistent with acute myocardial ischemia meets the diagnosis for a myocardial infarction (NE). Detection of a rise and/or fall of [...] additional sample may be indicated. Reference: Third [place] Definition of Myocardial Infarction. Journal of the [employer] 2012;60:1581-98 Specimen Anatomical Collection Method Collection Time Receive d Time (Source) Location / / Volume Laterality Blood 01/23/2022 12:45 01/23/2022 1:08 AM EDT AM EDT Resulting Agency Comment Spec In Lab Gemma B Pentland LEVELER HELPER CHEMISTRY ORDERABLES Performing Organization Address City/State/ZIP [place] [address] (ABNORMAL) Hepatic Function Panel (01/23/2022 12:45 AM EDT) Analysis Performed At Patho logist Time Signature Total Protein 5.9 (L) 6.1 - 8.0 [facility] g/dL [facility] Albumin 3.1 (L) 3.2 - 5.2 [facility] g/dL [facility] AST >700 (H) 0 - 39 [facility]L [facility] ALT >700 (H) 0 - 55 [facility] unit/L [facility] Alk Phos 71 40 - 130 [facility] unit/L [facility] Total 0.4 0.2 - 1.3 [facility] Bilirubin mg/dL [facility] Bili, Direct 0.2 0.0 - 0.3 [facility] mg/dL [facility] Specimen Anatomical Collection Method Collection Time Receive d Time (Source) Location / / Volume Laterality Blood 01/23/2022 12:45 01/23/2022 1:08 AM EDT AM EDT Resulting Agency Comment Spec In Lab Jaquelinwv Sal Hillman LEVELER HELPER CHEMISTRY ORDERABLES Performing Organization Address City/State/ZIP Code Phon e Number [address] Fibrinogen (01/23/2022 12:45 AM EDT) P athologist Signature Fibrinogen Disregard 200 - 393 [facility] Comment: A fibrinogen level >100 mg/dL is adequat e for hemostasis in most patients without underlying bleeding disorders. Disregard results due to high hematocrit result interference Called by: antonella, Read back by: halley hoyt, Date/Time:01/23/22 01:39. A fibrinogen level >100 mg/dL is adequat e for hemostasis in most patients without underlying bleeding disorders. Corrected from 440 mg/dL [HI] on 2 1:39:53 EDT by Robson Booth Specimen Anatomical Collection Method Collection Time Receive d Time (Source) Location / / Volume Laterality Blood 01/23/2022 12:45 01/23/2022 1:08 AM EDT AM EDT Resulting Agency Comment Spec In Lab Jaquelinma B Pentland LEVELER HELPER HEMATOLOGY ORDERABLES Performing Organization Address City/[facility]/[place] [address] APTT (01/23/2022 12:45 AM EDT) P athologist Signature PTT Disregard 25 - 37 [facility] Comment: The PTT is NOT appropriate for heparin m onitoring. Use the Anti-Xa level for heparin monitoring (HEP UFH) or LMWH mon itoring (HEP LMW). A PTT less than 37 seconds generally indicates adequate hem ostasis. Disregard results due to high hematocrit result interference Called by: antonella, Read back by: halley hoyt, Date/Time:01/23/22 01:39. Corrected from 33 sec on 01/23/22 1:39:5 3 EDT by Robson Booth Specimen Anatomical Collection Method Collection Time Receive d Time (Source) Location / / Volume Laterality Blood 01/23/2022 12:45 01/23/2022 1:08 AM EDT AM EDT Resulting Agency Comment Spec In Lab [facility] LEVELER HELPER HEMATOLOGY ORDERABLES Performing Organization Address City/[facility]/[place] [address] Prothrombin Time (01/23/2022 12:45 AM EDT) P athologist Signature PT Disregard 9.4 - 12.5 [facility] Comment: Disregard results due to high hematocrit result interference Called by: antonella, Read back by: halley hoyt, Date/Time:01/23/22 01:39. Corrected from 12.7 sec [HI] on 01/23/22 1:39:53 EDT by Robson Booth INR Disregard [facility] Comment: An INR <2.0 indicates [...] be appropriate depending on c linical circumstances. Disregard results due to high hematocrit result interference Called by: bm, Read back by: halley hoyt, Date/Time:01/23/22 01:39. Corrected from 1.1 [NA] on 01/23/22 1:39 :53 EDT by Robson Booth Specimen Anatomical Collection Method Collection Time Receive d Time (Source) Location / / Volume Laterality Blood 01/23/2022 12:45 01/23/2022 1:08 AM EDT AM EDT Resulting Agency Comment Spec In Lab Gemma Sal [place] LEVELER HELPER HEMATOLOGY ORDERABLES Performing Organization Address City/State/ZIP Code Phon e Number [address] POCT Glucose (01/23/2022 12:44 AM EDT) P athologist Signature POC Glucose 146 65 - 199 [facility] mg/dL [facility] Comment: Supplemental ranges: <140 mg/dL before meals <180 mg/dL all other times of the day Specimen Anatomical Collection Method Collection Time Receive d Time (Source) Location / / Volume Laterality Blood 01/23/2022 12:44 01/23/2022 AM EDT 12:44 AM EDT Tex Robles MD POINT OF CARE TEST ORDERABLE S Performing Organization Address City/State/Z[place] [address] MRSA PCR (01/23/2022 12:44 AM EDT) Patholo gist Method Time Signature MRSA Result Negative Negative [facility] MRSA Interp Negative for methicillin-resistant Staphylococcus aureus (MRSA) [facility] This test was performed using the GeneXpert?? Dx System an d the Xpert MRSA MEMORIAL Assay. The MRSA target DNA was not detec karina. The sample processing control and HOSPITAL probe check were valid. The performance of this test was determined by the [facility] Molecular Pathology Laboratory. It has been maximus red by the U.S. Food and Drug Administration for clinical use. Comment: [VERIFIED DATE]01.25.22 Verified By:Cook, Nora J (Electronic Signature) Specimen (Source) Anatomical Collection Method Collection Time Re ceived Time Location / / Volume Laterality Nasopharyngeal Swab 01/23/2022 12:44 06/11/2021 AM EDT 8:50 AM EDT Resulting Agency Comment Spec In Lab Cristina Hillman LEVELER HELPER MICROBIOLOGY - GENERAL ORDER JT Performing Organization Address City/State/ZIP [place] [address] (ABNORMAL) COVID-19 PCR (01/23/2022 12:44 AM EDT) [facility] Method Time Signature SARS-CoV-2 Detected (A) Not Detected [facility] RNA [facility] Comment: This result should [...] diagnosis of COVID-19 is performed using the [employer] m OG S-CoV-2 Assay as authorized by the FDA Emergency Use Authorization (EUA). This EUA assay is intended for In-vitro Diagnostic (IVD) use with respiratory sp ecimens such as nasopharyngeal swabs collected from individuals during the ac sepideh phase of infection. This assay is performed based on the instructions for use provided by [employer] and additional guidance provided by CDC and FDA. Testing is performed in the Clinical Genomics and Advanced Technolog y Laboratory within the Department of Pathology and Laboratory Medicine at [facility], certified under the Clinical Laboratory Improvement Amendments [...] required or requested by public health [facility], positive specimens may be sent for additional [...] clinical management guidance information are available at [facility] CDC Coronavirus Disease 2019 (COVID-19) webpage under Information fo r Healthcare Professionals (https://www.cdc.gov/coronavirus/2019-nc ov/hcp/index.html) Additional information about this and ot her EUA tests can be found in provider and patient fact sheets at the following FDA website: https://www.fda.gov/medical-devices/dbhfmxtyxhv-uronorr-5956-wfehu-09-oxuacphvu- sll-iscfsiotirtobh-fvgsbfl-devices/catri-njbtopssoum-ejwy SARS-Cov-2 RNA Source Trach Asp [facility] Specimen Anatomical Collection Method Collection Time Receive d Time (Source) Location / / Volume Laterality Tracheal 01/23/2022 12:44 01/23/2022 8:48 Aspirate AM EDT AM EDT Comment: Symptoms->COVID-19 Suspected Resulting Agency Comment Spec In Lab Cristina Hillman APRN MICROBIOLOGY - GENERAL ORDER JT Performing Organization Address City/State/Z[place] [address] documented in this encounter Visit Diagnoses Not on filedocumented in this encounter Admitting Diagnoses Diagnosis Cardiac arrest documented in this encounter Administered Medications Inactive Administered Medications - up to 3 most recent administrations Medication Order MAR Action Action Date Dose Rate Site acetaminophen (Tylenol) tablet Given 03/23/2022 12:48 PM EDT 1,0 00 mg 1,000 mg 1,000 mg, Oral, EVERY 8 HOURS SCHEDULED, First dose on Tue01/29/22 at 1400, Until Discontinued, Maximum dose of acetaminophen is 4000 mg from all sources in 24 hours. When ordered for pain, acetaminophen should be given even when other ordered pain medications are indicated. , Routine Given 03/23/2022 3:03 AM EDT 1,000 mg Given 03/22/2022 8:40 PM EDT 1,000 mg amLODIPine (Norvasc) tablet 10 mg Given 03/23/2022 8:19 AM EDT 10 mg 10 mg, Oral, DAILY, First dose (after last modification) on Tue02/23/22 at 0900, Until Discontinued, Routine Given 03/22/2022 8:44 AM EDT 10 mg Given 03/21/2022 8:33 AM EDT 10 mg ascorbic acid (Vitamin C) (Vitamin C) tablet Given 8:19 AM EDT 250 mg 250 mg 250 mg, Oral, DAILY, First dose (after last modification) on Tue02/12/22 at 0900, Until Discontinued, Routine Given 03/22/2022 8:50 AM EDT 250 mg Given 03/21/2022 8:32 AM EDT 250 mg buprenorphine-naloxone (Suboxone) 2-0.5 Given 03/23/2022 12: 48 PM EDT 2 tablets mg disintegrating tablet 2 tablet 2 tablet (4 mg of opiate), Sublingual, 4 TIMES DAILY, First dose on Tue03/22/22 at 2100, Until Discontinued, Day 5: Defaults to 4 mg PO 4 times daily. May decrease to 4 mg PO 3 times daily based on pain, craving and/or sedation. 4 mg opiate = 4 mg buprenorphine, Routine Given 03/23/2022 8:18 AM EDT 2 tablets Given 03/22/2022 8:40 PM EDT 2 tablets calcium carbonate (Tums) chewable tablet 500 Given 11:07 AM EDT 500 mg mg 500 mg, Oral, 3 TIMES DAILY WITH MEALS, First dose on Tue03/17/22 at 1215, Until Discontinued, Routine Given 03/21/2022 8:32 AM EDT 500 mg Given 03/20/2022 8:43 AM EDT 500 mg docusate sodium (Colace) capsule 100 mg Given 03/20/2022 8:20 PM EDT 100 mg 100 mg, Oral, 2 TIMES DAILY, First dose on Tue03/09/22 at 2100, Until Discontinued, Routine Given 03/19/2022 9:00 PM EDT 100 mg Given 03/18/2022 8:12 PM EDT 100 mg dronabinoL (Marinol) capsule 10 mg Given 03/23/2022 8:19 AM EDT 10 mg 10 mg, Oral, 2 TIMES DAILY, First dose (after last modification) on Tue02/15/22 at 0900, Until Discontinued, Routine Given 03/22/2022 8:40 PM EDT 10 mg Given 03/22/2022 8:44 AM EDT 10 mg ergocalciferoL (vitamin D2) (vitamin Given 03/21/2022 8:32 AM ED T 50,000 Units D2) capsule 50,000 Units 50,000 Units, Oral, WEEKLY, 6 doses, First dose on 02/28/22 at 1745, Last dose on Tue04/04/22 at 0900, Routine Given 03/14/2022 8:26 AM EDT 50,000 Units Given 03/07/2022 8:36 AM EDT 50,000 Units folic acid (Folvite) tablet 1,000 mcg Given 03/23/2022 8:19 AM EDT 1,000 mcg 1,000 mcg, Oral, DAILY, First dose on Tue01/29/22 at 1000, Until Discontinued, Routine Given 03/22/2022 8:45 AM EDT 1,000 mcg Given 03/21/2022 8:33 AM EDT 1,000 mcg heparin (porcine) (5,000 units/1 mL) Given 03/23/2022 3:04 AM ED T 5,000 Units subcutaneous injection 5,000 Units 5,000 Units, Subcutaneous, EVERY 8 HOURS SCHEDULED, First dose (after last modification) on Tue03/04/22 at 0645, Until Discontinued, Routine Given 03/22/2022 8:42 PM EDT 5,000 Units Given 03/22/2022 12:38 PM EDT 5,000 Units HYDROmorphone (Dilaudid) tablet 2 mg 2 mg, Oral, EVERY 4 HOURS PRN, Starting on Tue03/23/22 at 1331, Until Tue03/23/22 at 1719, Pain, for moderate pain (4-6), May give an additional 2 mg once if pain not relieved in 30-60 minutes., Routine HYDROmorphone (Dilaudid) tablet 4 mg 4 mg, Oral, EVERY 4 HOURS PRN, Starting on Tue03/23/22 at 1331, Until Tue03/23/22 at 171, Pain, for severe pain (7-10), M ay give an additional 2 mg once if pain not relieved in 30-60 minutes., Routine lactulose (Chronulac) (0.67 gram/mL) ora l liquid 20 g 20 g, Oral, 2 TIMES DAILY PRN, Starting on Tue02/08/22 at 1003, Until Tue03/23/22 at 1719, Constipation, Routine lidocaine (Xylocaine) 1% (10 mg/mL) inje ction 3 mg 3 mg (0.3 mL), Subcutaneous, ONCE PRN, 1 dose, Startin g on Tue02/26/22 at 1533, Until Tue03/23/22 at 1719, for discomfort with PIV ins ertion, Routine multivitamin with minerals (Thera M) tablet Given 03/02 8:19 AM EDT 1 tablet 1 tablet 1 tablet, Oral, DAILY, First dose on Tue02/27/22 at 2000, Until Discontinued, Routine Given 03/22/2022 8:44 AM EDT 1 tablet Given 03/21/2022 8:33 AM EDT 1 tablet naloxone (Narcan) (0.4 mg/mL) injection 0.04 mg 0.04 mg, Intravenous, EVERY 5 MIN PRN, 3 doses, Starti ng on Tue03/03/22 at 1907, Until Tue03/23/22 at 1719, Opioid Reversal, for respir atory rate less than 6 or unresponsive., May repeat every 5 minutes to increase respiratory rate. DO NOT exceed 0.12 mg total dose. Notify anesth esia immediately if administered., Routine senna (Senokot) tablet 8.6 mg Given 03/17/2022 8:14 AM EDT 8.6 mg 8.6 mg, Oral, DAILY, First dose on Tue03/12/22 at 0945, Until Discontinued, Routine Given 03/15/2022 10:44 AM EDT 8.6 mg Given 03/14/2022 8:27 AM EDT 8.6 mg sodium chloride 0.9 % (flush) (BD PosiFlush Given 03/23/2022 8:2 3 AM EDT 5 mLs Normal Saline 0.9) flush 5 mL 5 mL, Intravenous, 2 TIMES DAILY, First dose on Tue02/26/22 at 2100, Until Discontinued, Routine Given 03/22/2022 8:42 PM EDT 5 mLs Given 03/22/2022 8:51 AM EDT 5 mLs sodium chloride 0.9 % (flush) (BD PosiFlush Given 03/09/2022 7:5 8 PM EDT 5 mLs Normal Saline 0.9) flush 5-20 mL 5-20 mL, Intravenous, EVERY 1 MIN PRN, Starting on Tue02/26/22 at 1533, Until Tue03/23/22 at 1719, flush, Flush pertains to all indwelling lines. Flush per protocol found in the job aid using the link provided on this medication record., Routine Given 03/04/2022 8:24 PM EDT 5 mLs thiamine (Vitamin B1) tablet 100 mg Given 03/23/2022 8:19 AM EDT 100 mg 100 mg, Oral, DAILY, First dose on Tue01/29/22 at 1000, Until Discontinued, Routine Given 03/22/2022 8:44 AM EDT 100 mg Given 03/21/2022 8:33 AM EDT 100 mg vancomycin (Vancocin) capsule 125 mg Given 03/23/2022 12:48 PM EDT 125 mg 125 mg, Oral, 4 TIMES DAILY, First dose on Tue03/17/22 at 0945, Until Discontinued, To be administered / continued for 7 days POST last dose of high risk antibiotic(s)., Routine Given 03/23/2022 8:19 AM EDT 125 mg Given 03/22/2022 8:40 PM EDT 125 mg documented in this encounter Active and Recently Administered Medications Times are shown in EDT. Scheduled Medication Order 03/21/2022 03/22/2022 03/23/2022 acetaminophen (Tylenol) tablet 1,000 mg 0322 (Given - Provider: Brittney Ann RN)1107 (Given - Provider: Josh Peck RN)1934 (Given - Provider: Jayme Keenan RN) 0416 (Given - Provider: Jayme huffman RN)1238 (Given - Provider: Josh Peck RN)2040 (Given - Provider: Betzaida Francois RN) 0303 (Given - Provider: Betzaida tran RN)1248 (Given - Provider: Corina Zabala RN) 1,000 mg, Oral, EVERY 8 HOURS SCHEDULED, First dose on Tue01/29/22 at 1400, Until Discontinued, Maximum dose of acetaminophen is 4000 mg from all sources in 24 hours. When ordered for pain, acetaminophen should be given even when other ordered pain medications are indicated. , Routine amLODIPine (Norvasc) tablet 10 mg 0833 (Given - Provider: Ashley Peck RN) 0844 (Given - Provider: Josh Peck RN) 0819 (Given - Provider: Corina Zabala RN) 10 mg, Oral, DAILY, First dose (after la st modification) on Tue02/23/22 at 0900, Until Discontinued, Routine ascorbic acid (Vitamin C) (Vitamin C) tablet 250 mg 08 32 (Given - Provider: Josh Peck RN) 0850 (Given - Provider: Josh Peck RN) 0819 (Gi honorio - Provider: Corina Zabala RN) 250 mg, Oral, DAILY, First dose (after l ast modification) on Tue02/12/22 at 0900, Until Discontinued, Routine buprenorphine-naloxone (Suboxone) 2-0.5 mg disintegrating tablet 1 tablet (COMPLETED) 831 (Given - Provider: Josh Peck RN) 1 tablet (2 mg of opiate), Sublingual, 2 TIMES DAILY, 2 doses, First dose on 03/20/22 at 2100, Last dose on 03/21/22 at 0900, Day 3. 2 mg opiate = 2 mg buprenorphine Check for withdrawal symptom s 1 hour after each dose. Contact provid er for COWS score of 6 or greater to decrease buprenorphine dose., Routine buprenorphine-naloxone (Suboxone) 2-0.5 mg disintegrating tablet 2 tablet (COMPLETED) 2154 (Given - Provider: Hernán Carlos, RN) 0850 (Given - Provider: Josh Peck RN) 2 tablet (4 mg of opiate), Sublingual, 2 TIMES DAILY, 2 doses, First dose on Tue03/21/22 at 2100, Last dose on Tue03/22/22 at 0900, Day 4. 4 mg opiate = 4 mg buprenorphine Check for withdrawal symptom s 1 hour after each dose. Contact provid er for COWS score of 6 or greater to decrease buprenorphine dose., Routine buprenorphine-naloxone (Suboxone) 2-0.5 mg disintegrating ta blet 2 tablet 2039 (Given - Provider: Betzaida Francois RN) 0818 (Given - Provider: Corina Zabala, RN)1248 (Given - Provider: Corina Zabala RN) 2 tablet (4 mg of opiate), Sublingual, 4 TIMES DAILY, First dose on Tue03/22/22 at 2100, Until Discontinued, Day 5: Defaults to 4 mg PO 4 times daily. May decrease to 4 mg PO 3 times daily based on pain , craving and/or sedation. 4 mg opiate = 4 mg buprenorphine, Rou lissy calcium carbonate (Tums) chewable tablet 500 mg 0832 ( Given - Provider: Josh Peck RN)1107 (Given - Provider: Josh Peck RN)1700 (Not Given - Provider: Josh Peck RN - Reason: Patient/family refused) 0800 (Not Given - Provider: Josh Peck RN - Reason: Patient/family refused)1200 (Not Given - Provider: Josh Peck RN - Reason: Patient/family refused)1700 (Not Given - Provider: Josh Peck RN - Reason: Patient/family refused) 0819 (Not Given - Provider: Corina Zabala RN - Reason: Patient/family refused)1200 (Not Given - Provider: Corina Zabala RN - Reason: Patient/family refused) 500 mg, Oral, 3 TIMES DAILY WITH MEALS, First dose on Tue03/17/22 at 1215, Until Discontinued, Routine docusate sodium (Colace) capsule 100 mg 0900 (Not Give n - Provider: Josh Peck RN - Reason: Patient/family refused)2100 (Not Given - Provider: Hernán Carlos RN - Reason: Patient/family refused) 0900 (Not Given - Provider: Josh Peck RN - Reason: Patient/family refused)2100 (Not Given - Provider: Betzaida Francois RN - Reason: Patient/family refused) 0900 (Not Given - Provider: Corina Zabala RN - Reason: Patient/family refused) 100 mg, Oral, 2 TIMES DAILY, First dose on Tue03/09/22 at 2100, Until Discontinued, Routine dronabinoL (Marinol) capsule 10 mg 0833 (Given - Provi solitario: Josh Peck RN)2154 (Given - Provider: Hernán Carlos RN) 0844 (Given - Provider: Josh Peck RN)204 (Given - Provider: Betzaida Francois RN) 0819 (Given - Provider: Corina Zabala, ÁNGEL) 10 mg, Oral, 2 TIMES DAILY, First dose ( after last modification) on Tue02/15/22 at 0900, Until Discontinued, Routine ergocalciferoL (vitamin D2) (vitamin D2) capsule 50,00 0 Units 0832 (Given - Provider: Josh Peck RN) 50,000 Units, Oral, WEEKLY, 6 doses, Fir st dose on 02/28/22 at 1745, Last dose on 04/04/22 at 0900, Routine folic acid (Folvite) tablet 1,000 mcg 0833 (Given - Pr ovider: Josh Peck RN) 0845 (Given - Provider: Josh Peck RN) 0819 (Gi honorio - Provider: Corina Zabala, RN) 1,000 mcg, Oral, DAILY, First dose on Fr i 01/29/22 at 1000, Until Discontinued, Routine heparin (porcine) (5,000 units/1 mL) subcutaneous inje ction 5,000 Units 0322 (Given - Provider: Brittney Ann RN)1107 (Given - Provider: Josh Peck RN)1934 (Given - Provider: Jayme Keenan, ÁNGEL) 0417 (Given - Provider: Jayme Keenan, ÁNGEL)1238 (Given - Provider: Josh Peck RN)204 (Given - Provider: Betzaida Francois RN) 0304 (Given - Provider: Betzaida Francois RN)1200 (Not Given - Provider: Corina Zabala RN - Reason: Patient/family refused) 5,000 Units, Subcutaneous, EVERY 8 HOURS SCHEDULED, First dose (after last modification) on Meredith 03/04/22 at 0645, Until Discontinued, Routine multivitamin with minerals (Thera M) tablet 1 tablet 0 833 (Given - Provider: Josh Peck RN) 0844 (Given - Provider: Josh Peck RN) 0819 (Gi honorio - Provider: Corina Zabala RN) 1 tablet, Oral, DAILY, First dose on Tue02/27/22 at 2000, Until Discontinued, Routine senna (Senokot) tablet 8.6 mg 0900 (Not Given - Provid er: Josh Peck RN - Reason: Patient/family refused) 0900 (Not Given - Provider: Josh river RN - Reason: Patient/family refused - Comment: lg bm today) 0900 (Not Given - Provider: Corina Zabala RN - Reason: Patient/family refused) 8.6 mg, Oral, DAILY, First dose on Tue at 0945, Until Discontinued, Routine sodium chloride 0.9 % (flush) (BD PosiFlush Normal Barbara ine 0.9) flush 5 mL 0834 (Given - Provider: Josh Peck RN)2158 (Given - Provider: Hernán Carlos RN) 0851 (Given - Provider: Josh Peck RN)204 (Given - Provider: Betzaida Francois RN) 0823 (Given - Provider: Corina Zabala RN) 5 mL, Intravenous, 2 TIMES DAILY, First dose on Tue02/26/22 at 2100, Until Discontinued, Routine thiamine (Vitamin B1) tablet 100 mg 0833 (Given - Prov ider: Josh Peck RN) 0844 (Given - Provider: Josh Peck RN) 0819 (Gi honorio - Provider: Corina Zabala RN) 100 mg, Oral, DAILY, First dose on Tue at 1000, Until Discontinued, Routine vancomycin (Vancocin) capsule 125 mg 0833 (Given - Pro vider: Josh Peck RN)1331 (Given - Provider: Josh Peck RN)1743 (Given - Provider: Josh Peck RN)2155 (Given - Provider: Hernán Carlos RN) 0852 (Given - Provider: Josh Peck RN)1239 (Given - Provider: Josh Peck RN)1628 (Given - Provider: Josh Peck RN)2040 (Given - Provider: Betzaida Francois RN) 0819 (Given - Provider: Corina Zabala , RN)1248 (Given - Provider: Corina Zabala, RN) 125 mg, Oral, 4 TIMES DAILY, First dose on Tue03/17/22 at 0945, Until Discontinued, To be administered / continued for 7 days POST last dose of high risk antibiotic(s)., Routine PRN Medication Order 03/21/2022 03/22/2022 03/23/2022 HYDROmorphone (Dilaudid) tablet 2 mg(Linked Group 1) 2 mg, Oral, EVERY 4 HOURS PRN, Starting on Tue03/23/22 at 1331, Until Tue03/23/22 at 1719, Pain, for moderate pain (4-6), May give an additional 2 mg once if pain not relieved in 30-60 minutes., Routine HYDROmorphone (Dilaudid) tablet 4 mg (CANCELED) 1107 ( Given - Provider: Josh Peck RN)1330 (Given - Provider: Josh Peck RN)1459 (See Alternative - Provider: Josh Peck RN)1934 (See Alternative - Provider: Jayme Keenan RN) 0416 (See Alternative - Provider: Jayme Keenan RN)0827 (See Alternative - Provider: Josh Peck RN)1238 (See Alternative - Provider: Josh Peck RN)1628 (See Alternative - Provider: Josh Peck RN) 0304 (See Alternative - Provider: Heidi Francois RN)0822 (Given - Provider: Corina Zabala RN)1248 (See Alternative - Provider: Corina Zabala RN) 4 mg, Oral, EVERY 4 HOURS PRN, Starting on 03/21/22 at 0941, Until Tue03/23/22 at 1332, Pain, for moderate pain (4-6), May give an additional 2 mg once if pain not relieved in 30-60 minutes., Routine 2038 ( See Alternative - Provider: Betzaida Francois RN) HYDROmorphone (Dilaudid) tablet 4 mg(Linked Group 1) 4 mg, Oral, EVERY 4 HOURS PRN, Starting on Tue03/23/22 at 1331, Until Tue03/23/22 at 1719, Pain, for severe pain (7-10), May give an additional 2 mg once if pain not relieved in 30-60 minutes., Routine HYDROmorphone (Dilaudid) tablet 6 mg (CANCELED) 1107 ( See Alternative - Provider: Josh Peck RN)1330 (See Alternative - Provider: Josh Peck RN)1459 (Given - Provider: Josh Peck RN)1934 (Given - Provider: Jayme Keenan RN) 0416 (Given - Provider: Jayme huffman RN)0827 (Given - Provider: Josh Peck RN)1238 (Given - Provider: Josh Peck RN)1628 (Given - Provider: Josh Peck RN)2039 (Given - Prov ider: Betzaida Francois RN) 0304 (Given - Provider: Betzaida Francois RN)0822 (See Alternative - Provider: Corina Zabala RN)1248 (Given - Provider: Corina Zabala RN) 6 mg, Oral, EVERY 4 HOURS PRN, Starting on 03/21/22 at 0941, Until Tue03/23/22 at 1332, Pain, for severe pain (7-10), May give an additional 2 mg once if pain not relieved in 30-60 minutes., Routine lactulose (Chronulac) (0.67 gram/mL) oral liquid 20 g 20 g, Oral, 2 TIMES DAILY PRN, Starting on 02/08/22 at 1003, Until Tue03/23/22 at 1719, Constipation, Routine lidocaine (Xylocaine) 1% (10 mg/mL) injection 3 mg 3 mg (0.3 mL), Subcutaneous, ONCE PRN, 1 dose, Starting on Tue02/26/22 at 1533, Until Tue03/23/22 at 1719, for discomfort with PIV insertion, Routine naloxone (Narcan) (0.4 mg/mL) injection 0.04 mg 0.04 mg, Intravenous, EVERY 5 MIN PRN, 3 doses, Starting on Tue03/03/22 at 1907, Until Tue03/23/22 at 171, Opioid Reversal, for respiratory rate less than 6 or unresponsive., May repeat every 5 minutes to increase respiratory rate. DO NOT exc eed 0.12 mg total dose. Notify anesthesia immediately if administered., Routine oxyCODONE (Roxicodone) tablet 15 mg (CANCELED) 0242 (G iven - Provider: Brittney Ann, ÁNGEL)0642 (Given - Provider: Brittney Ann, ÁNGEL) 15 mg, Oral, EVERY 4 HOURS PRN, Starting on Tue02/16/22 at 1345, Until Tue03/21/22 at 0941, Pain, moderate pain (4-6), May give additional 5 mg in 30 minutes once if pain not relieved., Routine sodium chloride 0.9 % (flush) (BD PosiFlush Normal Saline 0.9) f lush 5-20 mL 5-20 mL, Intravenous, EVERY 1 MIN PRN, S tarting on Tue02/26/22 at 1533, Until Tue03/23/22 at 1719, flush, Flush pertains to all indwelling lines. Flush per protocol found in the job aid using the link provided on this medication record., Routine Linked Groups Order Group 1: HYDROmorphone (Dilaudid) tablet 2 mgJump to med 2 mg, Oral, EVERY 4 HOURS PRN, Starting on Tue03/23/22 at 1331, Until Tue03/23/22 at 1719, Pain, for moderate pain (4-6)
May give an additional 2 mg once if pain not relieved in 30-60 minutes.
Routine Or HYDROmorphone (Dilaudid) tablet 4 mgJump to med 4 mg, Oral, EVERY 4 HOURS PRN, Starting on Tue03/23/22 at 1331, Until Tue03/23/22 at 1719, Pain, for severe pain (7-10)
May give an additional 2 mg once if pain not relieved in 30-60 minutes.
Routine documented in this encounter Additional Health Concerns Infection Onset Date Last Indicated Resolved Time Rule Out COVID-19 01/23/2022 01/23/2022 01/23/2022 12: 15 PM EDT Rule Out Respiratory 01/23/2022 01/23/2022 01/24/2022 7:07 AM EDT COVID-19Comment: Date of symptom onset: Asymptomatic/unknown 01/23/2022 01/23/2022 02/03/2022 8:46 AM EDT Date of positive test: 01/23/22 Precautions may be discontinued by the [facility] team after the required isolation period (10 or 20 days, depending on the clinical circumstances) when the patient is clinically improving and has be en afebrile for 24 hours without fever reducing medications. Estimated date patient will be eligible for precaution removal: 02/03/22 Please call [phone] with questions. Rule Out C. difficile 02/01/2022 02/01/2022 02/01/2022 3:36 PM EDT C. difficileComment: Eligibe to end 02/01/2022 02/01/2022 03/19/2022 3:02 PM EDT [facility] History of COVID-19Comment: Retesting fo r COVID is not recommended unless infectious syndrome persists with no alternate explanation. 02/03/2022 02/03/2022 02/04/2022 4:10 PM EDT Positive test on 01/23/22 Please do not retest prior to 04/25/22 Please call Infection Prevention [phone] with questions. COVID-19Comment: Original COVID-19 test 01/23. Developed symptoms again 02/04/22 so extending isolation to 20 days. 02/04/2022 02/04/2022 02/09/20 1:57 PM EDT Eligible for precaution removal 02/13/22 History of COVID-19Comment: Retesting fo r COVID is not recommended unless infectious syndrome persists with no alternate explanation. 02/08/2022 02/08/2022 Positive test on 01/23/2022 Please do not retest prior to 04/25/2022 Please call Infection Prevention [phone] with questions. History of C. difficileComment: 03/19/2022 03/19/2022 Patient has met the 5 C's and is eligible to end soap and water contact precautions. Currently on PO vanc prophylacticly due to getting antibiotics for tx. documented as of this encounter Care Teams Field Service Coordinator Relationship Specialty Start Date End Date None PCP - General 03/10/19 None documented as of this encounter
--- OUTSIDE RECORDS SUMMARY | 2022-04-21 11:14 | XMS_ITS | Encounter Summary ---
:1990 [place] [address] Care Team Providers Name Role Phone None Primary Care Provider Unavailable Reason for Visit Auth/Cert Specialty Diagnoses / Procedures Referred By Contact Refer red To Contact Diagnoses Cardiac arrest intubated med misuse/covid Ximena Robles MD [facility] Procedures ER IPI Admit [facility] [place] [address] Referral ID Status Reason Start Date Expiration Date Visits Requ ested Visits Authorized [id number] 1 1 Encounter Details Date Type Department Care Team Description 02/17/2022 Anesthesia Event Main Operating Room Nathan Bazzi MD [facility] ANESTHESIOLOGY [facility] [place] [address] [place] [address] [phone] Anesthesia Record Procedure Summary Procedure Name Responsible Anesthesia Start Anesthesia Stop Anesthesiologist Time Time DEBRIDEMENT SKIN AND Nathan Ricardo MD 02/17/22 0730 02/17 0908 SUBCU, LOWER EXTREMITY (WRVU 1.01) (Left ) Events Date Time Event Comment 02/17/2022 0638 0730 AN Verify 0730 Start 0730 An Start Data 0740 An Induction 0742 An Intubation 0743 Anesthesia Ready 0907 Extubation/LMA Out 0907 an stop data 0908 Recovery or ICU Handoff Patient care was transferred to the destination unit staff after review of the patient's medica l history, current anesthetic/surgi moe status and plan, according to the Provider Handoff Checklist. 0908 Stop Name Total Propofol 300 mg Ondansetron 4 mg ceFEPime (Maxipime) 1g vial attach to sodium chloride 0.9% 100 mL Mini-Bag 0 g Plus Ketamine 10 mg/mL 50 mg HYDROmorphone 2 mg/mL 0.8 mg Agents Name O2 Air N2O Sevoflurane (et) [...] vertical; 03/06/22; 1543 Incision 01/26/22; 1625; Left; palm; 01/26/22 1625 by 01/20 0738 by dressing xerofrom, abd, aide Toan Robbins R N Wendy Natarajan RN 4inch aplied on 01/26 at 1730; 03/06/22; 0738 Incision 02/04/22; 1738; Left, 02/04/22 1738 by 03/06/22 1544 by lower; arm; 03/06/22; 1544 RashmiWendy mensah RN [place], Lisa R, RN CVC 3 Lumen 02/07/22; 1300; internal 02/07/22 1300 by 1400 by jugular vein, right; Natalya Amador RN Reilly, Blair C, RN dialysis/apheresis catheter (re-wired from previous H.D. catheter, Trialysis catheter); Ultrasound Guidance; other (see comments) (13 palauan and 15 cm); Rogers Solano COUNTER SUPERVISOR; 03/04/22; 1400 (removed today by ) Rectal Tube 02/09/22; 0149; rectal tube 02/09/22 0149 by 2300 by with balloon (specify mL) David Rhoades RN Nguyen, Sarah T, RN (40ml); 02/22/22; 2300 NPWT 02/11/22; 1022; Left, 02/11/22 1022 by 03/13/22 0854 by anterior, lower; arm; Gaurang Honeycutt RN Percy, Kaija L RN 03/13/22; 0854 NPWT 02/11/22; 1023; Left, 02/11/22 1023 by 03/13/22 0922 by anterior; thigh; 03/13/22; Gaurang Honeycutt RN Pe Marcio jacob RN 0922 Supraglottic Mask Ventilation: Not 02/17/22 0742 by 02/17/22 0907 by Attempted (0); LMA Type: Alfonso Solis, Alfonso Solis, iGel; LMA Size: 5; Inserted QUALITY CONTROL ENGINEERING TECHNICIAN QUALITY CONTROL ENGINEERING TECHNICIAN by: carole solis Urethral Catheter 02/17/22; 0745; Need for 02/17/22 0745 by 01/30 08/22 1053 by intraoperative urine output Brenda Orona, Deisy Escudero, monitoring, Physician RN CARTRIDGE FILLER order; Acute urinary retention or obstruction; indwelling double lumen catheter; hydrophilic coated, latex; 14; inserted at this facility; 1; 5; 10; none; drainage bag to dependent drainage; urethral catheter removed, tubing intact, per protocol/policy; 02/18/22; 1053 documented in this encounter Social History Tobacco [...] Postprocedure Evaluation - Nathan Ricardo MD - 02/23/2022 2:55 PM EDT Department of Anesthesiology Post-procedure Note Patient: Eric Packer Procedure Summary Date: 02/17/22 Room / Location: [facility] MAIN OR Anesthesia Start: 729 Anesthesia Stop: 907 Procedures: DEBRIDEMENT SKIN AND SUBCU, LOWER EXTREMITY (WRVU 1.01) (Left ) DRESSING CHANGE (FOR OTHER THAN GALLOWAY) UNDER ANES., UPPER EXTREMITY (WRVU 0.86) (Left ) MODIFIER WOUND VAC (N/A ) Diagnosis: (LUE and LLE fasciotomies) Surgeons: Jayme Armstrong MD Responsible Provider: Nathan Ricardo MD Anesthesia Type: general ASA Status: 3 All Anesthesia Providers: Anesthesiologist: Nathan Ricardo MD QUALITY CONTROL ENGINEERING TECHNICIAN: Alfonso Solis CRNA Vitals Value Taken Time BP 140/102 02/17/22 1000 Temp 36.5 ??C (97.7 ??F) 02/17/22 0915 Pulse 101 02/17/22 1000 Resp 13 02/17/22 1000 SpO2 98 % 02/17/22 1000 Pain Level 0 02/17/22 0911 Patient Location: PACU/[facility] Level of Consciousness: Awake and Alert Pain [...] Preprocedure Evaluation - Nathan Ricardo MD - 02/17/2022 6:35 AM EDT Pre-Anesthesia Evaluation for: Eric Packer a 31 y.o. male. Procedure(s): DEBRIDEMENT SKIN AND SUBCU, LOWER EXTREMITY (WRVU 1.01) DRESSING CHANGE (FOR OTHER THAN GALLOWAY) UNDER ANES., UPPER EXTREMITY (WRVU 0.86) MODIFIER WOUND VAC Patient Active Problem List Diagnosis Date Noted [...] Arteriogram Lower Extremity 02/06/2022 Dagoberto Vivas MD [facility] INTERVENTIONL RAD ??? PRO DEBRIDEMENT BONE EA ADDL 20 SQCM 02/08/2022 EACH ADDITIONAL 20 SQ CM, OR PART THEREOF (WRVU 1.8) performed by Shar Chatterjee MD at [facility] PAIGE ? ? PRO DEBRIDEMENT BONE MUSCLE &/FASCIA 20 SQ CM/< Left 01/29/2022 DEBRIDEMENT SKIN, SUBCU, MUSCLE, BONE, LOWER EXTREMITY (WRVU 4.1) performed by Tom Valdovinos MD [facility] MAIN OR ? ? PRO DEBRIDEMENT BONE MUSCLE &/FASCIA 20 SQ CM/< Left 01/31/2022 DEBRIDEMENT SKIN, SUBCU, MUSCLE, BONE, LOWER EXTREMITY (WRVU 4.1) performed by Jose Branch MD at [facility] MAIN OR ? ? PRO DEBRIDEMENT BONE MUSCLE &/FASCIA 20 SQ CM/< Left 01/31/2022 DEBRIDEMENT SKIN, SUBCU, MUSCLE, BONE UPPER EXTREMITY (WRVU 4.1) performed by Jose Branch MDat [facility] MAIN OR ? ? PRO DEBRIDEMENT BONE MUSCLE &/FASCIA 20 SQ CM/< Left 02/02/2022 DEBRIDEMENT SKIN, SUBCU, MUSCLE, BONE UPPER EXTREMITY (WRVU 4.1) performed by Hina Avitia MD at [facility] MAIN OR ? ? PRO DEBRIDEMENT BONE MUSCLE &/FASCIA 20 SQ CM/< Left 02/02/2022 DEBRIDEMENT SKIN, SUBCU, MUSCLE, BONE, LOWER EXTREMITY (WRVU 4.1) performed by Hina Avitia MD at [facility] MAIN OR ? ? PRO DEBRIDEMENT MUSCLE AND FASCIA 20 SQ CM/< Left 01/26/2022 DEBRIDEMENT SKIN, SUBCU, MUSCLE, LOWER EXTREMITY (WRVU 2.7) performed by Sigifredo Garcia MD at [facility] MAIN OR ? ? PRO DEBRIDEMENT MUSCLE AND FASCIA 20 SQ CM/< Left 01/26/2022 DEBRIDEMENT SKIN, SUBCU, MUSCLE, UPPER EXTREMITY (WRVU 2.7) performed by Sigifredo Garcia MD at [facility] MAIN OR ? ? PRO DEBRIDEMENT MUSCLE AND FASCIA 20 SQ CM/< Left 02/05/2022 DEBRIDEMENT SKIN, SUBCU, MUSCLE, LOWER EXTREMITY (WRVU 2.7) performed by Tom Valdovinos MD at [facility] OR ? ? PRO DEBRIDEMENT MUSCLE AND FASCIA 20 SQ CM/< Left 02/04/2022 DEBRIDEMENT SKIN, SUBCU, MUSCLE, LOWER EXTREMITY (WRVU 2.7) performed by Sigifredo Garcia MD at [facility] MAIN OR ? ? PRO DEBRIDEMENT MUSCLE AND FASCIA 20 SQ CM/< Left 02/15/2022 DEBRIDEMENT SKIN, SUBCU, MUSCLE, UPPER EXTREMITY (WRVU 2.7) performed by Jayme Armstrong MD at [facility] OR ? ? PRO DEBRIDEMENT SUBCUTANEOUS TISSUE 20 SQCM/< Left 02/04/2022 DEBRIDEMENT SKIN AND SUBCU, UPPER EXTREMITY (WRVU 1.01) performed by Sigifredo Garcia MD at [facility] PAIGE ? ? PRO DEBRIDEMENT SUBCUTANEOUS TISSUE 20 SQCM/< Left 02/08/2022 DEBRIDEMENT SKIN AND SUBCU, LOWER EXTREMITY (WRVU 1.01) performed by Shar Chatterjee MD at [facility] OR ? ? PRO DEBRIDEMENT SUBCUTANEOUS TISSUE 20 SQCM/< Left 02/09/2022 DEBRIDEMENT SKIN AND SUBCU, LOWER EXTREMITY (WRVU 1.01) performed by Shar Chatterjee MD at [facility] OR ? ? PRO DEBRIDEMENT SUBCUTANEOUS TISSUE 20 SQCM/< Left 02/11/2022 DEBRIDEMENT SKIN AND SUBCU, LOWER EXTREMITY (WRVU 1.01) performed by Dillon Betancourt MD at [facility] OR ? ? PRO DEBRIDEMENT SUBCUTANEOUS TISSUE 20 SQCM/< Left 02/13/2022 DEBRIDEMENT SKIN AND SUBCU, LOWER EXTREMITY (WRVU 1.01) performed by Shar Chatterjee MD at [facility] OR ? ? PRO DEBRIDEMENT SUBCUTANEOUS TISSUE 20 SQCM/< Left 02/15/2022 DEBRIDEMENT SKIN AND SUBCU, LOWER EXTREMITY (WRVU 1.01) performed by Jayme Armstrong MD at [facility] OR ??? PRO DECOMP FOREARM, 2 COMPART, W/O DEBRIDE Left 01/23/2022 FASCIOTOMY; FOREARM AND\OR WRIST, FLEXOR & EXTENS. COMP (WRVU 10.79) performed by Sigifredo Garcia MD at [facility] OR ??? PRO DECOMPRESS ANT/LAT+POST LEG CMPART Left 01/23/2022 FASCIOTOMY, LOWER LEG, ALL COMPARTMENTS (WRVU 7.82) performed by Sigifredo Garcia MD at [facility] OR ??? PRO DRESSING CHANGE UNDER ANESTHESIA Left 02/11/2022 DRESSING CHANGE (FOR OTHER THAN GALLOWAY) UNDER ANES., UPPER EXTREMITY (WRVU 0.86) performed by Dillon Betancourt MD at [facility] OR ??? PRO DRESSING CHANGE UNDER ANESTHESIA Left 02/13/2022 DRESSING CHANGE (FOR OTHER THAN GALLOWAY) UNDER ANES., UPPER EXTREMITY (WRVU 0.86) performed by Shar Chatterjee MD at [facility] OR ? ? PRO I&D DEEP ABSCESS BURSA/HEMATOMA THIGH/KNEE REGION Left 02/06/2022 INCISION & DRAINAGE ABSCESS OR HEMATOMA, THIGH, KNEE SUPERFICIAL (WRVU 6.78) performed by Jayme Armstrong MD at [facility] MAIN OR ??? PRO INCIS OF HIP/THIGH FASCIA Left 01/23/2022 @FASCIOTOMY,THIGH OR HIP FOR COMPARTMENT SYNDROME (WRVU 12.89) performed by Sigifredo Garcia MD at [facility] MAIN OR ??? PRO NEGATIVE PRESSURE WOUND THERAPY, LESS THAN OR EQUAL TO 50 SQCM Left 02/05/2022 DRESSING CHANGE (VAC ASSISTED) UP TO 50SQ.CM (WRVU 0.55) performed by Orville Hennessy MD at [facility] MAIN OR ??? PRO NEGATIVE PRESSURE WOUND THERAPY, LESS THAN OR EQUAL TO 50 SQCM Left 02/05/2022 DRESSING CHANGE (VAC ASSISTED) UP TO 50SQ.CM (WRVU 0.55) performed by Tom Valdovinos MD at [facility] MAIN OR ??? PRO NEGATIVE PRESSURE WOUND THERAPY, LESS THAN OR EQUAL TO 50 SQCM Left 02/08/2022 DRESSING CHANGE (VAC ASSISTED) UP TO 50SQ.CM (WRVU 0.55) performed by Shar Chatterjee MD at [facility] MAIN OR ??? PRO OPEN TREAT MANDIBLE CONDYLE FX, COMPL 04/27/2013 OPEN TREATMENT, COMPLEX MANDIBLE FX., MULTI APPROACH, W/ FIXATION performed by Kishore Neil MD at [facility] OR ??? PRO REVISE MEDIAN N/CARPAL TUNNEL SURG Left 01/23/2022 MEDIAN NERVE DECOMPRESSION (CARPAL TUNNEL RELEASE) (WRVU 4.97) performed by Sigifredo Garcia MD at [facility] MAIN OR ??? PRO SEC CLSR SURG WOUND/DEHSN EXTENSIVE/COMPLICATED Left 01/26/2022 SECONDARY CLOSURE SURGICAL WOUND OR DEHISCENCE, EXTENSIVE OR COMPLICATED, UPPER EXTREMITY (WRVU 12.04) performed by Sigifredo Garcia MD at [facility] OR Social History Tobacco Use ??? Smoking [...] Physical Exam: Preprocedure Vitals Current as of 02/17/22 0635 BP: 157/105 Pulse: 101 Resp: 15 SpO2: 98 Temp: 36.8 ??C (98.2 ??F) Height: 182.9 cm (6' 0.01) (02/05/22) Weight: 104.3 kg (229 lb 15 oz) (02/09/22) BMI: 31.18 IBW: 77.6 kg (171 lb 1.9 oz) Last edited 02/17/22 0334 by [facility] [employer] Assessment: Mallampati: II TM [...] Labs reviewed - notable for HGB stable at 7.1, Na stable at 130, K stable at 4.5 (all this AM) Plan for general anesthesia with LMA, standard ASA monitors, to PACU following procedure. All patient questions answered. Serial anesthesia consent verified. Informed Consent: Anesthetic plan and risks discussed with patient. Plan discussed with QUALITY CONTROL ENGINEERING TECHNICIAN and attending. Anesthesia Screening documented in this encounter Plan of Treatment Upcoming Encounters Date Type Specialty Care Team Description 06/09/2022 Procedure visit Neurology Summer Wiggins MD [facility] NEUROLOGY DEPT [place], [place] [address] (Wo rk) Scheduled Procedures Name [...] MAR Action Action Date Dose Rate Site HYDROmorphone (Dilaudid) (2 mg/mL) Given 02/17/2022 7:40 AM EDT 0.8 mg multi-dose injection solution Intravenous, PRN, Starting on Tue02/17/22 at 0740, Until Tue02/17/22 at 0908, Anesthesia Intra-op, Routine ketamine (Ketalar) (10 mg/mL) IV bolus Given 02/17/2022 7:40 AM EDT 50 mg injection (Anesthesia) Intravenous, PRN, Starting on Tue02/17/22 at 0740, Until Tue02/17/22 at 0908, Anesthesia Intra-op ondansetron (pf) (Zofran) (2 mg/mL) inje ction Given 02/17/2022 8:31 AM EDT 4 mg Intravenous, PRN, Starting on Tue02/17/22 at 0831, Until Tue02/17/22 at 0908, Anesthesia Intra-op, Routine propofoL (Diprivan) 10 mg/mL bolus injection Given 7:40 AM EDT 300 mg (Anesthesia) Intravenous, PRN, Starting on Tue02/17/22 at 0740, Until Tue02/17/22 at 0908, Anesthesia Intra-op documented in this encounter Additional [...] prior to 04/25/2022 Please call Infection Prevention [phone] with questions. documented as of this encounter Care Teams Vendor Management Specialist Relationship Specialty Start Date End Date None PCP - General 03/10/19 None documented as of this encounter
--- OUTSIDE RECORDS SUMMARY | 2022-04-21 11:14 | XMS_ITS | Encounter Summary ---
:1990 Author Organization [facility] Address [place] [id number] Care Team Providers Name Role Phone None Primary Care Provider Unavailable Reason for Visit Auth/Cert Specialty Diagnoses / Procedures Referred By Contact Refer red To Contact Diagnoses Cardiac arrest intubated med misuse/covid Ximena Robles MD [facility] Procedures ER IPI Admit [facility] [place] [address] Referral ID Status Reason Start Date Expiration Date Visits Requ ested Visits Authorized [id number] 1 1 Encounter Details Date Type Department Care Team Description 02/15/2022 Anesthesia Event Main Operating Room Saad Grande MD [facility] [place] [address] [facility] Davion Reece CRNA [facility]EST[facility] [place] [id number] [place] [address] Anesthesia Record Procedure Summary Procedure Name Responsible Anesthesia Start Anesthesia Stop Anesthesiologist Time Time DEBRIDEMENT SKIN AND Meaghan Grande MD 02/15/22 0742 2 0949 SUBCU, LOWER EXTREMITY (WRVU 1.01) (Left ) Events Date Time Event Comment 02/15/2022 0657 0742 AN Verify 0742 Start 0742 An Start Data 0750 An Induction 0752 An Intubation 0757 Anesthesia Ready 0821 Procedure Start 0841 Quick Note lateral 0936 Extubation/LMA Out Following com mands, Vt > 350, oropharynx suctioned and ex tubated to facemask without event. 0940 an stop data 0949 Recovery or ICU Handoff Patient care was transferred to the destination unit staff after review of the patient's medica l history, current anesthetic/surgi moe status and plan, according to the Provider Handoff Checklist. 0949 Stop Name Total Propofol 150 mg Ondansetron 4 mg Ketamine 10 mg/mL 50 mg HYDROmorphone 2 mg/mL 1 mg Lactated Ringers 500 mL Agents Name O2 Air N2O Sevoflurane [...] Lumen 02/07/22; 1300; internal 02/07/22 1300 by Perry , 03/04/22 1400 by jugular vein, right; ÁNGEL Kam Bla ir C, RN dialysis/apheresis catheter (re-wired from previous H.D. catheter, Trialysis catheter); Ultrasound Guidance; other (see comments) (13 guyanese and 15 cm); Rogers Solano H[facility] MONITOR; 03/04/22; 1400 (removed today by MD) Rectal Tube 02/09/22; 0149; rectal 02/09/22 0149 by Hulbert, 02/22/22 2300 by tube with balloon ÁNGEL Luna, Pretty Renteria RN (specify mL) (40ml); 02/22/22; 2300 NPWT 02/11/22; 1022; Left, 02/11/22 1022 by Binder, 0 03/13/22 0854 by Fran, anterior, lower; arm; ÁNGEL Morris, R N 03/13/22; 0854 NPWT 02/11/22; 1023; Left, 02/11/22 1023 by Binder, 0 03/13/22 0922 by Fran, anterior; thigh; ÁNGEL Morris, RN 03/13/22; 0922 Supraglottic Mask Ventilation: Not 02/15/22 0752 by Shanell, 0936 by Shanell, Attempted (0); LMA Type: MARIA ELENA Easley CRNA iGel; LMA Size: 5; Inserted by: MARIA ELENA Reece documented in this encounter Social History Tobacco [...] encounter OR Notes Anesthesia Postprocedure Evaluation - Meaghan Gradne MD - 02/15/2022 10:50 AM EDT Department of Anesthesiology Post-procedure Note Patient: Eric Packer Procedure Summary Date: 02/15/22 Room / Location: [address] MAIN OR Anesthesia Start: 741 Anesthesia Stop: 948 Procedures: DEBRIDEMENT SKIN AND SUBCU, LOWER EXTREMITY (WRVU 1.01) (Left ) MODIFIER WOUND VAC (N/A ) DEBRIDEMENT SKIN, SUBCU, MUSCLE, UPPER EXTREMITY (WRVU 2.7) (Left ) Diagnosis: (compartment syndrome LLE,) Surgeons: Jayme Armstrong MD Responsible Provider: Meaghan Grande MD Anesthesia Type: general ASA Status: 3 All Anesthesia Providers: Anesthesiologist: Meaghan Grande MD PROGRAM REP: Davion Reece CRNA Vitals Value Taken Time BP 141/95 02/15/22 1045 Temp 36.1 ??C (97 ??F) 02/15/22 1045 Pulse 95 02/15/22 1047 Resp 14 02/15/22 1047 SpO2 99 % 02/15/22 1050 Pain Level 0 02/15/22 1000 Vitals shown include unvalidated device data. Patient Location: PACU/[facility] Level of Consciousness: Conscious but Sleepy Pain Management: Pain Being Addressed PONV: None Cardiovascular Status: At Baseline and Hemodynamically Stable Respiratory Status: At Baseline and Room Air Postoperative Fluid Status: Intravascular EUvolemia Possible Anesthetic Complications: NONE apparent at time of evaluation Final Primary Anesthesia Type: General (The anesthetic type performed was the same as planned.) Comments: Patient reports pain is not well controlled, however on arrival to the room he is resting completely still with eyes closed, slow to arouse to verbal stimuli. Falls asleep quickly during conversation. Not yet due for acetaminophen. NSAIDs contraindicated. Would not advise additional opioids at this time. Meaghan Grande MD Anesthesia Preprocedure Evaluation - Meaghan Grande MD - 02/15/2022 6:43 AM EDT Pre-Anesthesia Evaluation for: Eric Packer a 31 y.o. male. Procedure(s): DEBRIDEMENT SKIN AND SUBCU, LOWER EXTREMITY (WRVU 1.01) MODIFIER WOUND VAC DEBRIDEMENT SKIN, SUBCU, MUSCLE, UPPER EXTREMITY (WRVU 2.7) Patient Active Problem List [...] Arteriogram Lower Extremity 02/06/2022 Dagoberto Vivas MD [facility] INTERVENTIONL RAD ??? PRO DEBRIDEMENT BONE EA ADDL 20 SQCM 02/08/2022 EACH ADDITIONAL 20 SQ CM, OR PART THEREOF (WRVU 1.8) performed by Shar Chatterjee MD at [facility] PAIGE ? ? PRO DEBRIDEMENT BONE MUSCLE &/FASCIA 20 SQ CM/< Left 01/29/2022 DEBRIDEMENT SKIN, SUBCU, MUSCLE, BONE, LOWER EXTREMITY (WRVU 4.1) performed by Tom Valdovinos MD [facility] MAIN OR ? ? PRO DEBRIDEMENT BONE MUSCLE &/FASCIA 20 SQ CM/< Left 01/31/2022 DEBRIDEMENT SKIN, SUBCU, MUSCLE, BONE, LOWER EXTREMITY (WRVU 4.1) performed by Jose Branch MD at [facility] MAIN OR ? ? PRO DEBRIDEMENT BONE MUSCLE &/FASCIA 20 SQ CM/< Left 01/31/2022 DEBRIDEMENT SKIN, SUBCU, MUSCLE, BONE UPPER EXTREMITY (WRVU 4.1) performed by Jose Branch MDat [facility] MAIN OR ? ? PRO DEBRIDEMENT BONE MUSCLE &/FASCIA 20 SQ CM/< Left 02/02/2022 DEBRIDEMENT SKIN, SUBCU, MUSCLE, BONE UPPER EXTREMITY (WRVU 4.1) performed by Hina Avitia MD at [facility] MAIN OR ? ? PRO DEBRIDEMENT BONE MUSCLE &/FASCIA 20 SQ CM/< Left 02/02/2022 DEBRIDEMENT SKIN, SUBCU, MUSCLE, BONE, LOWER EXTREMITY (WRVU 4.1) performed by Hina Avitia MD at [facility] OR ? ? PRO DEBRIDEMENT MUSCLE AND FASCIA 20 SQ CM/< Left 01/26/2022 DEBRIDEMENT SKIN, SUBCU, MUSCLE, LOWER EXTREMITY (WRVU 2.7) performed by Sigifredo Garcia MD at [facility] MAIN OR ? ? PRO DEBRIDEMENT MUSCLE AND FASCIA 20 SQ CM/< Left 01/26/2022 DEBRIDEMENT SKIN, SUBCU, MUSCLE, UPPER EXTREMITY (WRVU 2.7) performed by Sigifredo Garcia MD at [facility] MAIN OR ? ? PRO DEBRIDEMENT MUSCLE AND FASCIA 20 SQ CM/< Left 02/05/2022 DEBRIDEMENT SKIN, SUBCU, MUSCLE, LOWER EXTREMITY (WRVU 2.7) performed by Tom Valdovinos MD at [facility] OR ? ? PRO DEBRIDEMENT MUSCLE AND FASCIA 20 SQ CM/< Left 02/04/2022 DEBRIDEMENT SKIN, SUBCU, MUSCLE, LOWER EXTREMITY (WRVU 2.7) performed by Sigifredo Garcia MD at [facility] MAIN OR ? ? PRO DEBRIDEMENT SUBCUTANEOUS TISSUE 20 SQCM/< Left 02/04/2022 DEBRIDEMENT SKIN AND SUBCU, UPPER EXTREMITY (WRVU 1.01) [facility] ? ? PRO DEBRIDEMENT SUBCUTANEOUS TISSUE 20 [...] Chatterjee MD at [facility] OR ??? PRO DECOMP FOREARM, 2 COMPART, [...] 6.78) performed by Jayme Armstrong MD at [facility] OR ??? PRO INCIS OF HIP/THIGH FASCIA Left 01/23/2022 @FASCIOTOMY,THIGH OR HIP FOR COMPARTMENT SYNDROME (WRVU 12.89) performed by Sigifredo Garcia MD at [facility] OR ??? PRO NEGATIVE PRESSURE WOUND THERAPY, LESS THAN OR EQUAL TO 50 SQCM Left 02/05/2022 DRESSING CHANGE (VAC ASSISTED) UP TO 50SQ.CM (WRVU 0.55) performed by Orville Hennessy MD at [facility] MAIN OR ??? PRO NEGATIVE PRESSURE WOUND THERAPY, LESS THAN OR EQUAL TO 50 SQCM Left 02/05/2022 DRESSING CHANGE (VAC ASSISTED) UP TO 50SQ.CM (WRVU 0.55) performed by Tom Valdovinos MD at [facility] MAIN OR ??? PRO NEGATIVE PRESSURE WOUND THERAPY, LESS THAN OR EQUAL TO 50 SQCM Left 02/08/2022 DRESSING CHANGE (VAC ASSISTED) UP TO 50SQ.CM (WRVU 0.55) performed by Shar Chatterjee MD at [facility] MAIN OR ??? PRO OPEN TREAT MANDIBLE CONDYLE FX, COMPL 04/27/2013 OPEN TREATMENT, COMPLEX MANDIBLE FX., MULTI APPROACH, W/ FIXATION performed by Kishore Neil MD at [facility] MAIN OR ??? PRO REVISE MEDIAN N/CARPAL TUNNEL SURG Left 01/23/2022 MEDIAN NERVE DECOMPRESSION (CARPAL TUNNEL RELEASE) (WRVU 4.97) performed by Sigifredo Garcia MD at [facility] MAIN OR ??? PRO SEC CLSR SURG WOUND/DEHSN EXTENSIVE/COMPLICATED Left 01/26/2022 SECONDARY CLOSURE SURGICAL WOUND OR DEHISCENCE, EXTENSIVE OR COMPLICATED, UPPER EXTREMITY (WRVU 12.04) performed by Sigifredo Garcia MD at [facility] MAIN OR Social History Tobacco Use ??? [...] Physical Exam: Preprocedure Vitals Current as of 02/15/22 0643 BP: 137/87 Pulse: 89 Resp: 17 SpO2: 98 Temp: 36.5 ??C (97.7 ??F) Height: 182.9 cm (6' 0.01) (02/05/22) Weight: 104.3 kg (229 lb 15 oz) (02/09/22) BMI: 31.18 IBW: 77.6 kg (171 lb 1.9 oz) Last edited 02/15/22 0338 by NS Airway Assessment: Mallampati: II TM distance: >3 [...] vac changes. ?? Patient on M/W/F dialysis. Last HD on 02/12, plan for repeat today after surgery. TTE on 01/23 showing LVEF 46% with [...] reviewed - notable for HGB stable at 7.2, Na stable at 126, K stable at 4.8 (all this AM) Plan for general anesthesia with LMA, standard ASA monitors, to PACU following procedure. All patient questions answered. Serial anesthesia consent verified. Meaghan Grande MD Attending Anesthesiologist Pager [phone] 02/15/22 6:46 AM Informed Consent: Anesthetic plan and risks discussed with patient. Plan discussed with PROGRAM REP and attending. Anesthesia Screening documented in this encounter Plan of Treatment Upcoming Encounters Date Type Specialty Care Team Description 06/09/2022 Procedure visit Neurology Summer Wiggins MD [id number] DE[facility] [place], [place] [address] (Wo rk) Scheduled Procedures Name [...] Rate Site HYDROmorphone (Dilaudid) (2 mg/mL) Given 02/15/2022 9:00 AM EDT 0.4 mg multi-dose injection solution Intravenous, PRN, Starting on Tue02/15/22 at 0815, Until Tue02/15/22 at 0951, Anesthesia Intra-op, Routine Given 02/15/2022 8:15 AM EDT 0.6 mg ketamine (Ketalar) (10 mg/mL) IV bolus Given 02/15/2022 7:50 AM EDT 50 mg injection (Anesthesia) Intravenous, PRN, Starting on Tue02/15/22 at 0750, Until Tue02/15/22 at 0951, Anesthesia Intra-op lactated ringers infusion New Bag 02/15/2022 7:42 AM EDT Intravenous, CONTINUOUS PRN, Starting on Tue02/15/22 at 0742, Until Tue02/15/22 at 0951, Anesthesia Intra-op ondansetron (pf) (Zofran) (2 mg/mL) inje ction Given 02/15/2022 8:49 AM EDT 4 mg Intravenous, PRN, Starting on Tue02/15/22 at 0849, Until Tue02/15/22 at 0951, Anesthesia Intra-op, Routine propofoL (Diprivan) 10 mg/mL bolus injection Given 7:50 AM EDT 150 mg (Anesthesia) Intravenous, PRN, Starting on Tue02/15/22 at 0750, Until Tue02/15/22 at 0951, Anesthesia Intra-op documented in this encounter Additional [...] prior to 04/25/2022 Please call Infection Prevention [phone] with questions. documented as of this encounter Care Teams Employee Relations Representative Relationship Specialty Start Date End Date None PCP - General 03/10/19 None documented as of this encounter
--- OUTSIDE RECORDS SUMMARY | 2022-04-21 11:14 | XMS_ITS | Encounter Summary ---
:1990 [place] [address] Care Team Providers Name Role Phone None Primary Care Provider Unavailable Reason for Visit Auth/Cert Specialty Diagnoses / Procedures Referred By Contact Refer red To Contact Diagnoses Cardiac arrest intubated med misuse/covid Ximena Robles MD [facility] Procedures ER IPI Admit [facility] [place] [address] Referral ID Status Reason Start Date Expiration Date Visits Requ ested Visits Authorized [id number] 1 1 Encounter Details Date Type Department Care Team Description 02/19/2022 Anesthesia Event Main Operating Room Loreto Scott MD [facility] [address] [facility] Judy Eduardo CRNA [facility] [address] [facility] [place] [address] Anesthesia Record Procedure Summary Procedure Name Responsible Anesthesia Start Anesthesia Stop Anesthesiologist Time Time DEBRIDEMENT AYSHA, Loreto St MD 02/19/22 0842 02/19/22 1010 SUBCU, MUSCLE, LOWER EXTREMITY (WRVU 2.7) (Left ) Events Date Time Event Comment 02/19/2022 0727 0842 Start 0843 AN Verify 0845 An Start Data 0850 An Induction 0851 An Intubation 0852 Anesthesia Ready 0915 Procedure Start 0952 Procedure Stop 0953 Extubation/LMA Out Patient spont aneously ventilating; adequate tidal volumes ( >600 mL); regular respiratory rate & rhyth m; minute ventilation > 6L/min. Orophary nx suctioned. LMA removed without issue to 6L/min O2 via face mask. VSS. 1001 an stop data 1009 Recovery or ICU Handoff Patient care was transferred to the destination unit staff after review of the patient's medica l history, current anesthetic/surgi moe status and plan, according to the Provider Handoff Checklist. 1010 Stop Spontaneous vent ilation without issue. VSS. Full report give n to MATERIAL MIXER. Name Total Midazolam 2 mg Propofol 300 mg Ondansetron 4 mg Ketamine 10 mg/mL 50 mg Dexmedetomidine 20 mcg Sodium Chloride 0.9% 250 mL Agents Name O2 Air N2O Sevoflurane [...] 1625 by 03/06/22 0738 by palm; dressing emilyofRosendo droan Marcos A, RN L Wendy ba RN abd, aide 4inch aplied on 01/26 at 1730; 03/06/22; 0738 Incision 02/04/22; 1738; Left, 02/04/22 1738 by 03/06/22 1544 by lower; arm; 03/06/22; 1544 Wendy Caraballo RN [place], Lisa R, RN CVC 3 Lumen 02/07/22; 1300; internal 02/07/22 1300 by 1400 by jugular vein, right; Natalya Amador, Geoffrey Mares, aircraft sales representative/apheresis catheter (re-wired from previous H.D. catheter, Trialysis catheter); Ultrasound Guidance; other (see comments) (13 turkish and 15 cm); Rogers Solano FAN RUNNER; 03/04/22; 1400 (removed today by MD) Rectal Tube 02/09/22; 0149; rectal 02/09/22 0149 by 02/22/22 2300 by tube with balloon (David Hubbard RN Nguyen, Pretty Renteria, ÁNGEL mL) (40ml); 02/22/22; 2300 NPWT 02/11/22; 1022; Left, 02/11/22 1022 by 03/13/22 0854 by anterior, lower; arm; Gaurang Honeycutt, ÁNGEL Fran, Marcio Machado RN 03/13/22; 0854 NPWT 02/11/22; 1023; Left, 02/11/22 1023 by 03/13/22 0922 by anterior; thigh; 03/13/22; Gaurang Honeycutt, RN Pe rcy, Marcio Machado, RN 0922 Urethral Catheter 02/19/22; 0758; Acute 02/19/22 0758 by 2043 by urinary retention or Beena Duffy RN Battl es, Brittney Espinoza, obstruction; indwelling RN single lumen catheter; 14; 1; 10; intraurethral Xylocaine gel; LDA not present upon assessment; 02/20/22; 2043 Supraglottic Mask Ventilation: Not 02/19/22 0851 by 02/19/22 0953 by Attempted (0); LMA Type: Alesha, Judy S, Rishi michell, Judy S, iGel; LMA Size: 5; CLAY GRINDER CLAY GRINDER Inserted by: Judy Eduardo CRNA documented in this encounter Social History Tobacco [...] encounter OR Notes Anesthesia Postprocedure Evaluation - Loreto St MD - 02/19/2022 10:48 AM EDT Department of Anesthesiology Post-procedure Note Patient: Eric Packer Procedure Summary Date: 02/19/22 Room / Location: [facility] OR [address] [place] [address] MAIN OR Anesthesia Start: 841 Anesthesia Stop: 1009 Procedures: DEBRIDEMENT SKIN, SUBCU, MUSCLE, LOWER EXTREMITY (WRVU 2.7) (Left ) DRESSING CHANGE (FOR OTHER THAN GALLOWAY) UNDER ANES., UPPER EXTREMITY (WRVU 0.86) (Left ) Diagnosis: (LUE and LLE fasciotomies) Surgeons: Jayme Armstrong MD Responsible Provider: Loreto St MD Anesthesia Type: general ASA Status: 3 All Anesthesia Providers: Anesthesiologist: Loreto St MD CLAY GRINDER: Judy Eduardo CRNA Vitals Value Taken Time BP 141/103 02/19/22 1045 Temp 36 ??C (96.8 ??F) 02/19/22 1005 Pulse 82 02/19/22 1047 Resp 16 02/19/22 1047 SpO2 99 % 02/19/22 1047 Pain Level Vitals shown include unvalidated device data. Patient Location: PACU/[facility] Level of Consciousness: Awake and Alert Pain Management: Satisfactory Analgesia PONV: None Cardiovascular Status: At Baseline and Hemodynamically Stable Respiratory Status: At Baseline, Stable Respiratory Status and Supplemental O2 (NC or FM) Postoperative Fluid Status: Intravascular EUvolemia Possible Anesthetic Complications: NONE apparent at time of evaluation Final Primary Anesthesia Type: General (The anesthetic type performed was the same as planned.) Comments: LORETO ST MD Anesthesia Preprocedure Evaluation - Loreto St MD - 02/19/2022 7:26 AM EDT Pre-Anesthesia Evaluation for: Eric Packer [...] Arteriogram Lower Extremity 02/06/2022 Dagoberto Vivas MD [facility] INTERVENTIONL RAD ??? PRO DEBRIDEMENT BONE EA ADDL 20 SQCM 02/08/2022 EACH ADDITIONAL 20 SQ CM, OR PART THEREOF (WRVU 1.8) performed by Shar Chatterjee MD at [facility] PAIGE ? ? PRO DEBRIDEMENT BONE MUSCLE &/FASCIA 20 SQ CM/< Left 01/29/2022 DEBRIDEMENT SKIN, SUBCU, MUSCLE, BONE, LOWER EXTREMITY (WRVU 4.1) performed by Tom Valdovinos MD [facility] MAIN OR ? ? PRO DEBRIDEMENT BONE MUSCLE &/FASCIA 20 SQ CM/< Left 01/31/2022 DEBRIDEMENT SKIN, SUBCU, MUSCLE, BONE, LOWER EXTREMITY (WRVU 4.1) performed by Jose Branch MD at [facility] MAIN OR ? ? PRO DEBRIDEMENT BONE MUSCLE &/FASCIA 20 SQ CM/< Left 01/31/2022 DEBRIDEMENT SKIN, SUBCU, MUSCLE, BONE UPPER EXTREMITY (WRVU 4.1) performed by Jose Branch MDat [facility] OR ? ? PRO DEBRIDEMENT BONE MUSCLE &/FASCIA 20 SQ CM/< Left 02/02/2022 DEBRIDEMENT SKIN, SUBCU, MUSCLE, BONE UPPER EXTREMITY (WRVU 4.1) performed by Hina Avitia MD at [facility] OR ? ? PRO DEBRIDEMENT BONE MUSCLE &/FASCIA 20 SQ CM/< Left 02/02/2022 DEBRIDEMENT SKIN, SUBCU, MUSCLE, BONE, LOWER EXTREMITY (WRVU 4.1) performed by Hina Avitia MD at [facility] OR ? ? PRO DEBRIDEMENT MUSCLE AND FASCIA 20 SQ CM/< Left 01/26/2022 DEBRIDEMENT SKIN, SUBCU, MUSCLE, LOWER EXTREMITY (WRVU 2.7) performed by Sigifredo Garcia MD at [facility] OR ? ? PRO DEBRIDEMENT MUSCLE AND FASCIA 20 SQ CM/< Left 01/26/2022 DEBRIDEMENT SKIN, SUBCU, MUSCLE, UPPER EXTREMITY (WRVU 2.7) performed by Sigifredo Garcia MD at [facility] OR ? ? PRO DEBRIDEMENT MUSCLE AND FASCIA 20 SQ CM/< Left 02/05/2022 DEBRIDEMENT SKIN, SUBCU, MUSCLE, LOWER EXTREMITY (WRVU 2.7) performed by Tom Valdovinos MD at [facility] OR ? ? PRO DEBRIDEMENT MUSCLE AND FASCIA 20 SQ CM/< Left 02/04/2022 DEBRIDEMENT SKIN, SUBCU, MUSCLE, LOWER EXTREMITY (WRVU 2.7) performed by Sigifredo Garcia MD at [facility] MAIN OR ? ? PRO DEBRIDEMENT MUSCLE AND FASCIA 20 SQ CM/< Left 02/15/2022 DEBRIDEMENT SKIN, SUBCU, MUSCLE, UPPER EXTREMITY (WRVU 2.7) performed by Jayme Armstrong MD at [facility] OR ? ? PRO DEBRIDEMENT SUBCUTANEOUS TISSUE 20 SQCM/< Left 02/04/2022 DEBRIDEMENT SKIN AND SUBCU, UPPER EXTREMITY (WRVU 1.01) performed [facility] ? ? PRO DEBRIDEMENT SUBCUTANEOUS TISSUE 20 SQCM/< Left 02/08/2022 DEBRIDEMENT SKIN AND SUBCU, LOWER EXTREMITY (WRVU 1.01) performed by Shar Chatterjee MD at [facility] OR ? ? PRO DEBRIDEMENT SUBCUTANEOUS TISSUE 20 SQCM/< Left 02/09/2022 DEBRIDEMENT SKIN AND SUBCU, LOWER EXTREMITY (WRVU 1.01) performed by Shar Chatterjee MD at [facility] OR ? ? PRO DEBRIDEMENT SUBCUTANEOUS TISSUE 20 SQCM/< Left 02/11/2022 DEBRIDEMENT SKIN AND SUBCU, LOWER EXTREMITY (WRVU 1.01) performed by Dillon Betancourt MD at [facility] OR ? ? PRO DEBRIDEMENT SUBCUTANEOUS TISSUE 20 SQCM/< Left 02/13/2022 DEBRIDEMENT SKIN AND SUBCU, LOWER EXTREMITY (WRVU 1.01) performed by Shar Chatterjee MD at [facility] OR ? ? PRO DEBRIDEMENT SUBCUTANEOUS TISSUE 20 SQCM/< Left 02/15/2022 DEBRIDEMENT SKIN AND SUBCU, LOWER EXTREMITY (WRVU 1.01) performed by Jayme Armstrong MD at [facility] OR ? ? PRO DEBRIDEMENT SUBCUTANEOUS TISSUE 20 SQCM/< Left 02/17/2022 DEBRIDEMENT SKIN AND SUBCU, LOWER EXTREMITY (WRVU 1.01) performed by Jayme Armstrong MD at [facility] OR ??? PRO DECOMP FOREARM, 2 COMPART, W/O DEBRIDE Left 01/23/2022 FASCIOTOMY; FOREARM AND\OR WRIST, FLEXOR & EXTENS. COMP (WRVU 10.79) performed by Sigifredo Garcia MD at [facility] OR ??? PRO DECOMPRESS ANT/LAT+POST LEG CMPART Left 01/23/2022 FASCIOTOMY, LOWER LEG, ALL COMPARTMENTS (WRVU 7.82) performed by Sigifredo Garcia MD at [facility] OR ??? PRO DRESSING CHANGE UNDER ANESTHESIA Left 02/11/2022 DRESSING CHANGE (FOR OTHER THAN GALLOWAY) UNDER ANES., UPPER EXTREMITY (WRVU 0.86) performed by Dillon Betancourt MD at [facility] OR ??? PRO DRESSING CHANGE UNDER ANESTHESIA Left 02/13/2022 DRESSING CHANGE (FOR OTHER THAN GALLOWAY) UNDER ANES., UPPER EXTREMITY (WRVU 0.86) performed by Shar Chatterjee MD at [facility] OR ??? PRO DRESSING CHANGE UNDER ANESTHESIA Left 02/17/2022 DRESSING CHANGE (FOR OTHER THAN GALLOWAY) UNDER ANES., UPPER EXTREMITY (WRVU 0.86) performed by Jayme Armstrong MD at [facility] OR ? ? PRO I&D DEEP ABSCESS BURSA/HEMATOMA THIGH/KNEE REGION Left 02/06/2022 INCISION & DRAINAGE ABSCESS OR HEMATOMA, THIGH, KNEE SUPERFICIAL (WRVU 6.78) performed by Jayme Armstrong MD at [facility] OR ??? PRO INCIS OF HIP/THIGH FASCIA Left 01/23/2022 @FASCIOTOMY,THIGH OR HIP FOR COMPARTMENT SYNDROME (WRVU 12.89) performed by Sigifredo Garcia MD at [facility] OR ??? PRO NEGATIVE PRESSURE WOUND THERAPY, LESS THAN OR EQUAL TO 50 SQCM Left 02/05/2022 DRESSING CHANGE (VAC ASSISTED) UP TO 50SQ.CM (WRVU 0.55) performed by Orville Hennessy MD at [facility] OR ??? PRO NEGATIVE PRESSURE WOUND THERAPY, LESS THAN OR EQUAL TO 50 SQCM Left 02/05/2022 DRESSING CHANGE (VAC ASSISTED) UP TO 50SQ.CM (WRVU 0.55) performed by oTm Valdovinos MD at [facility] OR ??? PRO NEGATIVE PRESSURE WOUND THERAPY, LESS THAN OR EQUAL TO 50 SQCM Left 02/08/2022 DRESSING CHANGE (VAC ASSISTED) UP TO 50SQ.CM (WRVU 0.55) performed by Shar Chatterjee MD at [facility] OR ??? PRO OPEN TREAT MANDIBLE CONDYLE FX, COMPL 04/27/2013 OPEN TREATMENT, COMPLEX MANDIBLE FX., MULTI APPROACH, W/ FIXATION performed by Kishore Neil MD at [facility] MAIN OR ??? PRO REVISE MEDIAN N/CARPAL TUNNEL SURG Left 01/23/2022 MEDIAN NERVE DECOMPRESSION (CARPAL TUNNEL RELEASE) (WRVU 4.97) performed by Sigifredo Garcia MD at [facility] MAIN OR ??? PRO SEC CLSR SURG WOUND/DEHSN EXTENSIVE/COMPLICATED Left 01/26/2022 SECONDARY CLOSURE SURGICAL WOUND OR DEHISCENCE, EXTENSIVE OR COMPLICATED, UPPER EXTREMITY (WRVU 12.04) performed by Sigifredo Garcia MD at [facility] MAIN OR Social History Tobacco Use [...] risks discussed with patient. Plan discussed with CLAY GRINDER and attending. Anesthesia Screening documented in this encounter Plan of Treatment Upcoming Encounters Date Type Specialty Care Team Description 06/09/2022 Procedure visit Neurology Summer Wiggins MD [facility] ER DR NEUROLOGY DEPT [place], [place] [address] (Wo rk) Scheduled Procedures Name [...] Dose Rate Site dexmedeTOMIDine (Precedex) (4 Given 02/19/2022 9:30 AM EDT 4 mcg mcg/mL) bolus injection (Anesthsia) Intravenous, PRN, Starting on Tue02/19/22 at 0903, Until Tue02/19/22 at 1016, Anesthesia Intra-op, Routine Given 02/19/2022 9:14 AM EDT 8 mcg Given 02/19/2022 9:03 AM EDT 8 mcg ketamine (Ketalar) (10 mg/mL) IV bolus Given 02/19/2022 8:55 AM EDT 50 mg injection (Anesthesia) Intravenous, PRN, Starting on Tue02/19/22 at 0855, Until Tue02/19/22 at 1016, Anesthesia Intra-op midazolam (pf) (Versed) (1 mg/mL) multi-dose Given 02/19/2022 8: 48 AM EDT 2 mg injection Intravenous, PRN, Starting on Tue02/19/22 at 0849, Until Tue02/19/22 at 1016, Anesthesia Intra-op, Routine ondansetron (pf) (Zofran) (2 mg/mL) inje ction Given 02/19/2022 9:14 AM EDT 4 mg Intravenous, PRN, Starting on Tue02/19/22 at 0914, Until Tue02/19/22 at 1016, Anesthesia Intra-op, Routine propofoL (Diprivan) 10 mg/mL bolus injection Given 9:15 AM EDT 50 mg (Anesthesia) Intravenous, PRN, Starting on Tue02/19/22 at 0850, Until Tue02/19/22 at 1016, Anesthesia Intra-op Given 02/19/2022 8:50 AM EDT 250 mg sodium chloride 0.9% infusion New Bag 02/19/2022 8:48 AM EDT Intravenous, CONTINUOUS PRN, Starting on Tue02/19/22 at 0849, Until Tue02/19/22 at 1016, Anesthesia Intra-op documented in this encounter Additional [...] prior to 04/25/2022 Please call Infection Prevention [phone] with questions. documented as of this encounter Care Teams Interlocking And Signal Mechanic Relationship Specialty Start Date End Date None PCP - General 03/10/19 None documented as of this encounter
--- OUTSIDE RECORDS SUMMARY | 2022-04-21 11:19 | XMS_ITS | Encounter Summary ---
:1990 Author Organization [facility] [place] [address] Care Team Providers Name Role Phone None Primary Care Provider Unavailable Encounter Details Date Type Department Care Team Description 02/11/2022 Anesthesia Event 4 [facility] MD Myra [facility] [address] [place] [address] [place] [id number] [phone] (Wo rk) Anesthesia Record Procedure Summary Procedure Name Responsible Anesthesia Start Anesthesia Stop Time Anesthesiologist Time Acute Pain Service (consult) Events No events on file. No medications on file. Agents No agents on file. Blood No blood administrations on file. Lines, Drains, and Airways No LDAs on file. documented in this encounter Social History Tobacco [...] visit Neurology Summer Wiggins MD [facility] ER NEUROLOGY DEPT [place], [place] [address] (Wo rk) Scheduled Procedures Name [...] prior to 04/25/2022 Please call Infection Prevention [phone] with questions. documented as of this encounter Care Teams Adolescent Medicine Specialist Relationship Specialty Start Date End Date None PCP - General 03/10/19 None documented as of this encounter
--- OUTSIDE RECORDS SUMMARY | 2022-04-21 11:19 | XMS_ITS | Encounter Summary ---
:1990 Author Organization [facility] [place] [address] Care Team Providers Name Role Phone None Primary Care Provider Unavailable Reason for Visit Auth/Cert Specialty Diagnoses / Procedures Referred By Contact Refer red To Contact Diagnoses Cardiac arrest intubated med misuse/covid Ximena Robles MD [facility] Procedures ER IPI Admit [facility] [place] [address] Referral ID Status Reason Start Date Expiration Date Visits Requ ested Visits Authorized [id number] 1 1 Encounter Details Date Type Department Care Team Description 02/11/2022 Anesthesia Event Main Operating Room Neftali Aparicio MD [facility] [place] [address] [facility] Joaquin Martin MD [facility] [place] [address] [place] [address] Anesthesia Record Procedure Summary Procedure Name Responsible Anesthesia Start Anesthesia Stop Anesthesiologist Time Time DEBRIDEMENT AYSHA AND Cory, Amber Clayton MD 02/11/22 0931 02/11/22 1112 SUBCU, LOWER EXTREMITY (WRVU 1.01) (Left Leg) Events Date Time Event Comment 02/11/2022 0800 0931 AN Verify 0931 Start 0931 An Start Data 0941 An Induction 0943 An Intubation 0944 Anesthesia Ready 1054 Extubation/LMA Out 1056 an stop data 1112 Recovery or ICU Handoff Patient care was transferred to the destination unit staff after review of the patient's medica l history, current anesthetic/surgi moe status and plan, according to the Provider Handoff Checklist. 1112 Stop Name Total Propofol 240 mg Rocuronium 50 mg PHENYLephrine 80 mcg ondansetron (pf) (Zofran) (2 mg/mL) injection 4 mg 4 m g HYDROmorphone 2 mg/mL 2 mg Sugammadex 200 mg Sodium Chloride 0.9% 300 mL Agents Name O2 Air N2O [...] xerofrom, abd, aide Toan Robbins R N [place], Lisa R, RN 4inch aplied on 01/26 at 1730; 03/06/22; 0738 NPWT 01/26/22; 1712; Left, 01/26/22 1712 by 02/11/22 1021 by anterior; arm; 02/11/22; Toan Robbins RN B lexi, Gaurang Lee RN 1021 Incision 02/04/22; 1738; Left, 02/04/22 1738 by 03/06/22 1544 by lower; arm; 03/06/22; 1544 Rashmi, ÁNGEL Morejon, Wendy Espinoza, RN CVC 3 Lumen 02/07/22; 1300; internal 02/07/22 1300 by Maxham , 03/04/22 1400 by jugular vein, right; ÁNGEL Kam, Jere Shaw RN dialysis/apheresis catheter (re-wired from previous H.D. catheter, Trialysis catheter); Ultrasound Guidance; other (see comments) (13 swedish and 15 cm); Rogers Solano NEWSPAPER REPORTER; 03/04/22; 1400 (removed today by MD) Rectal Tube 02/09/22; 0149; rectal tube 02/09/22 0149 by Car farheen, 02/22/22 2300 by with balloon (specify mL) ÁNGEL Luna , Pretty Renteria RN (40ml); 02/22/22; 2300 NPWT 02/09/22; 1636; Left, 02/09/22 1636 by Argiro, 0 02/11/22 1022 by anterior; thigh; wound vac; Anthony Batista RN Bind er, Gaurang Lee RN 02/11/22; 1022 ETT Mask Ventilation: Easy (1); 02/11/22 0944 by Low , 02/11/22 1054 by ETT Type: Cuffed; ETT Size: Amber Clayton MD Full er, MD Joaquin 7 mm; Mac Blade: 4; Notes: Asleep, Pre-O2, Cricoid Pressure, Stylette; Attempts: 1; Laryngoscopy Grade: 1; ETT Placement Verified By: Auscultation, Capnometry, Visual; Secured at Teeth: 22 cm NPWT 02/11/22; 1022; Left, 02/11/22 1022 by Binder, 0 03/13/22 0854 by anterior, lower; arm; ÁNGEL Morris Kai ja L, RN 03/13/22; 0854 NPWT 02/11/22; 1023; Left, 02/11/22 1023 by Binder, 0 03/13/22 0922 by anterior; thigh; 03/13/22; ÁNGEL Morris Kaija L, RN 0922 documented in this encounter Social History Tobacco [...] encounter OR Notes Anesthesia Postprocedure Evaluation - Amber Ray MD - 02/11/2022 12:20 PM EDT Department of Anesthesiology Post-procedure Note Patient: Eric Packer Procedure Summary Date: 02/11/22 Room / Location: [address] MAIN OR Anesthesia Start: 930 Anesthesia Stop: 1111 Procedures: DEBRIDEMENT SKIN AND SUBCU, LOWER EXTREMITY (WRVU 1.01) (Left Leg) DRESSING CHANGE (FOR OTHER THAN GALLOWAY) UNDER ANES., UPPER EXTREMITY (WRVU 0.86) (Left Leg) MODIFIER WOUND VAC (N/A ) Diagnosis: (LUE and LLE fasciotomies) Surgeons: Dillon Betancourt MD Responsible Provider: Amber Ray MD Anesthesia Type: general ASA Status: 3 All Anesthesia Providers: Anesthesiologist: Amber Ray MD Wheel Polisher: Joaquin Martin MD Vitals Value Taken Time BP 139/94 02/11/22 1200 Temp 36.7 ??C (98.1 ??F) 02/11/22 1130 Pulse 103 02/11/22 1203 Resp 19 02/11/22 1203 SpO2 97 % 02/11/22 1208 Pain Level 8 02/11/22 1147 Vitals shown include unvalidated device data. Patient Location: PACU/[facility] Level of Consciousness: Conscious but Sleepy Pain Management: Satisfactory Analgesia PONV: None Cardiovascular Status: At Baseline and Hemodynamically Stable Respiratory Status: Supplemental O2 (NC or FM) and Stable Respiratory Status Postoperative Fluid Status: Intravascular EUvolemia Possible Anesthetic Complications: NONE apparent at time of evaluation Final Primary Anesthesia Type: General (The anesthetic type performed was the same as planned.) Comments: Anesthesia Preprocedure Evaluation - Joaquin Martin MD - 02/11/2022 8:10 AM EDT Images from the original note were not included. Pre-Anesthesia Evaluation for: Eric Packer a 31 [...] Arteriogram Lower Extremity 02/06/2022 Dagoberto Vivas MD [facility] INTERVENTIONL RAD ??? PRO DEBRIDEMENT BONE EA ADDL 20 SQCM 02/08/2022 EACH ADDITIONAL 20 SQ CM, OR PART THEREOF (WRVU 1.8) performed by Shar Chatterjee MD at [facility] PAIGE ? ? PRO DEBRIDEMENT BONE MUSCLE &/FASCIA 20 SQ CM/< Left 01/29/2022 DEBRIDEMENT SKIN, SUBCU, MUSCLE, BONE, LOWER EXTREMITY (WRVU 4.1) performed by Tom Valdovinos MD [facility] MAIN OR ? ? PRO DEBRIDEMENT BONE MUSCLE &/FASCIA 20 SQ CM/< Left 01/31/2022 DEBRIDEMENT SKIN, SUBCU, MUSCLE, BONE, LOWER EXTREMITY (WRVU 4.1) performed by Jose Branch MD at [facility] MAIN OR ? ? PRO DEBRIDEMENT BONE MUSCLE &/FASCIA 20 SQ CM/< Left 01/31/2022 DEBRIDEMENT SKIN, SUBCU, MUSCLE, BONE UPPER EXTREMITY (WRVU 4.1) performed by Jose Branch MDat [facility] MAIN OR ? ? PRO DEBRIDEMENT BONE MUSCLE &/FASCIA 20 SQ CM/< Left 02/02/2022 DEBRIDEMENT SKIN, SUBCU, MUSCLE, BONE UPPER EXTREMITY (WRVU 4.1) performed by Hina Avitia MD at [facility] MAIN OR ? ? PRO DEBRIDEMENT BONE MUSCLE &/FASCIA 20 SQ CM/< Left 02/02/2022 DEBRIDEMENT SKIN, SUBCU, MUSCLE, BONE, LOWER EXTREMITY (WRVU 4.1) performed by Hina Avitia MD at [facility] OR ? ? PRO DEBRIDEMENT MUSCLE AND FASCIA 20 SQ CM/< Left 01/26/2022 DEBRIDEMENT SKIN, SUBCU, MUSCLE, LOWER EXTREMITY (WRVU 2.7) performed by Sigifredo Garcia MD at [facility] OR ? ? PRO DEBRIDEMENT MUSCLE AND FASCIA 20 SQ CM/< Left 01/26/2022 DEBRIDEMENT SKIN, SUBCU, MUSCLE, UPPER EXTREMITY (WRVU 2.7) performed by Sigifredo Garcia MD at [facility] OR ? ? PRO DEBRIDEMENT MUSCLE AND FASCIA 20 SQ CM/< Left 02/05/2022 DEBRIDEMENT SKIN, SUBCU, MUSCLE, LOWER EXTREMITY (WRVU 2.7) performed by Tom Valdovinos MD at [facility] OR ? ? PRO DEBRIDEMENT MUSCLE AND FASCIA 20 SQ CM/< Left 02/04/2022 DEBRIDEMENT SKIN, SUBCU, MUSCLE, LOWER EXTREMITY (WRVU 2.7) performed by Sigifredo Garcia MD at [facility] OR ? ? PRO DEBRIDEMENT SUBCUTANEOUS TISSUE 20 SQCM/< Left 02/04/2022 DEBRIDEMENT SKIN AND SUBCU, UPPER EXTREMITY (WRVU 1.01) performed by Sigifredo Garcia MD at [facility] PAIGE ? ? PRO DEBRIDEMENT SUBCUTANEOUS TISSUE 20 SQCM/< Left 02/08/2022 DEBRIDEMENT SKIN AND SUBCU, LOWER EXTREMITY (WRVU 1.01) performed by Shar Chatterjee MD at [facility] OR ? ? PRO DEBRIDEMENT SUBCUTANEOUS TISSUE 20 SQCM/< Left 02/09/2022 DEBRIDEMENT SKIN AND SUBCU, LOWER EXTREMITY (WRVU 1.01) performed by Shar Chatterjee MD at [facility] OR ??? PRO DECOMP FOREARM, 2 COMPART, W/O DEBRIDE Left 01/23/2022 FASCIOTOMY; FOREARM AND\OR WRIST, FLEXOR & EXTENS. COMP (WRVU 10.79) performed by Sigifredo Garcia MD at [facility] OR ??? PRO DECOMPRESS ANT/LAT+POST LEG CMPART Left 01/23/2022 FASCIOTOMY, LOWER LEG, ALL COMPARTMENTS (WRVU 7.82) performed by Sigifredo Garcia MD at [facility] OR ? ? PRO I&D DEEP ABSCESS BURSA/HEMATOMA THIGH/KNEE REGION Left 02/06/2022 INCISION & DRAINAGE ABSCESS OR HEMATOMA, THIGH, KNEE SUPERFICIAL (WRVU 6.78) performed by Jayme Armstrong MD at [facility] OR ??? PRO INCIS OF HIP/THIGH FASCIA Left 01/23/2022 @FASCIOTOMY,THIGH OR HIP FOR COMPARTMENT SYNDROME (WRVU 12.89) performed by Sigifredo Garcia MD at [facility] OR ??? PRO NEGATIVE PRESSURE WOUND THERAPY, LESS THAN OR EQUAL TO 50 SQCM Left 02/05/2022 DRESSING CHANGE (VAC ASSISTED) UP TO 50SQ.CM (WRVU 0.55) performed by Orville Hennessy MD at [facility] OR ??? PRO NEGATIVE PRESSURE WOUND THERAPY, LESS THAN OR EQUAL TO 50 SQCM Left 02/05/2022 DRESSING CHANGE (VAC ASSISTED) UP TO 50SQ.CM (WRVU 0.55) performed by Tom Valdovinos MD at [facility] OR ??? PRO NEGATIVE PRESSURE WOUND THERAPY, LESS THAN OR EQUAL TO 50 SQCM Left 02/08/2022 DRESSING CHANGE (VAC ASSISTED) UP TO 50SQ.CM (WRVU 0.55) performed by Shar Chatterjee MD at [facility] MAIN OR ??? PRO OPEN TREAT MANDIBLE CONDYLE FX, COMPL 04/27/2013 OPEN TREATMENT, COMPLEX MANDIBLE FX., MULTI APPROACH, W/ FIXATION performed by Kishore Neil MD at [facility] MAIN OR ??? PRO REVISE MEDIAN N/CARPAL TUNNEL SURG Left 01/23/2022 MEDIAN NERVE DECOMPRESSION (CARPAL TUNNEL RELEASE) (WRVU 4.97) performed by Sigifredo Garcia MD at [facility] MAIN OR ??? PRO SEC CLSR SURG WOUND/DEHSN EXTENSIVE/COMPLICATED Left 01/26/2022 SECONDARY CLOSURE SURGICAL WOUND OR DEHISCENCE, EXTENSIVE OR COMPLICATED, UPPER EXTREMITY (WRVU 12.04) performed by Sigifredo Garcia MD at [facility] MAIN OR Social History Tobacco Use ??? [...] Physical Exam: Preprocedure Vitals Current as of 02/11/22 0810 BP: 122/76 Pulse: 110 Resp: 17 SpO2: 97 Temp: 36.9 ??C (98.4 ??F) Height: 182.9 cm (6' 0.01) (02/05/22) Weight: 104.3 kg (229 lb 15 oz) (02/09/22) BMI: 31.18 IBW: 77.6 kg (171 lb 1.9 oz) Last edited 02/11/22 0753 by NW Airway Assessment: Mallampati: II TM distance: >3 FB Neck ROM: full Cardiovascular Assessment: Rhythm: regular Rate: abnormal PE comment: tachycardic Pulmonary Assessment: pulmonary exam normal Dental Assessment: Misc Assessment: IV access: Peripheral line Last Filed Perioperative Cognitive Screening None Anesthesia Plan: ASA 3 general, with a(n) intravenous induction Eric Packer is a 31 yo male with who was admitted 01/23 with acute renal failure and Vtach arrest insetting of rhabdomyolysis from compartment syndrome after found down following fentanyl overdose, now s/p LUE and LLE fasciotomies c/b bleeding from LLE fasciotomy wound s/p serial debridement and vac placement. LLE fasciotomy with evidence of Pseudomonas and Serratia infections. Plan today for LUE vac change. LLE debridement and vac change. Patient on M/W/F dialysis. See labs from this AM. Next HD session tomorrow. Most recent TTE on 01/23 showing LVEF 46% with mild hypokinesis and mildly dilated RV. WBC 18 today currently on zosyn/vanc. Analgesic regimen dilaudid PULP SCREEN OPERATOR, tylenol, oxy oral, marinol oral. Lab Results Component Value Date HGB 7.0 (L) 02/11/2022 PLATELET 140 (L) 02/11/2022 INR 1.1 02/08/2022 NA 128 (L) 02/11/2022 K 3.8 02/11/2022 CREATININE 2.42 (H) 02/11/2022 02/09/22 02/05/22 02/01/22 01/23/22 0230 0150 1245 0045 ABORH A Pos A Pos A Pos A Pos Allergies: No Known Allergies NPO Status: Appropriate Anesthetic Plan: GA with ETT Standard ASA monitoring Adequate IV access Hb 7.0 this am. Active T&S advised. Region - Other Informed Consent: Anesthetic plan and risks discussed with patient. Plan discussed with resident. Anesthesia Screening documented in this encounter Plan of Treatment Upcoming Encounters Date Type Specialty Care Team Description 06/09/2022 Procedure visit Neurology Summer Wiggins MD [facility] NEUROLOGY DEPT [place], [place] [address] (Wo rk) Scheduled Procedures Name [...] Rate Site HYDROmorphone (Dilaudid) (2 mg/mL) Given 02/11/2022 9:39 AM EDT 2 mg multi-dose injection solution Intravenous, PRN, Starting on Meredith 02/11/22 at 0939, Until Meredith 02/11/22 at 1112, Anesthesia Intra-op, Routine ondansetron (pf) (Zofran) (2 mg/mL) injection Given 10:03 AM EDT 4 mg 4 mg 4 mg, Intravenous, EVERY 30 MIN PRN, 2 doses, Starting on Tue02/01/22 at 1421, Until Meredith 02/11/22 at 1003, Nausea, May repeat dose once in 30 minutes if no relief from previous dose. If multiple antiemetics are ordered, use ondansetron first, prochlorperazine second. Per PULP SCREEN OPERATOR order. Given 02/09/2022 4:01 PM EDT 8 mg PHENYLephrine in NS (PF) (JORDIN-SYNEPHRINE) 0.8 Given 9:41 AM EDT 80 mcg mg/10 mL (80 mcg/mL) multi-dose injection Syrg Intravenous, PRN, Starting on Meredith 02/11/22 at 0941, Until Meredith 02/11/22 at 1112, Anesthesia Intra-op, Routine propofoL (Diprivan) 10 mg/mL bolus injection Given 10:40 AM EDT 40 mg (Anesthesia) Intravenous, PRN, Starting on Meredith 02/11/22 at 0941, Until Meredith 02/11/22 at 1112, Anesthesia Intra-op Given 02/11/2022 9:41 AM EDT 200 mg rocuronium (Zemuron) (10 mg/mL) multi-dose Given 02/11/2022 9:41 AM EDT 50 mg injection Intravenous, PRN, Starting on Meredith 02/11/22 at 0941, Until Meredith 02/11/22 at 1112, Anesthesia Intra-op, Routine sodium chloride 0.9% infusion New Bag 02/11/2022 9:31 AM EDT Intravenous, CONTINUOUS PRN, Starting on Meredith 02/11/22 at 0931, Until Meredith 02/11/22 at 1112, Anesthesia Intra-op sugammadex (Bridion) 100 mg/mL injection Given 02/11/2022 10:33 AM EDT 200 mg Intravenous, PRN, Starting on Meredith 02/11/22 at 1033, Until Meredith 02/11/22 at 1112, Anesthesia Intra-op, Routine documented in this encounter Additional Health Concerns Infection Onset Date Last Indicated Resolved Time C. difficileComment: Eligibe to end 02/01/2022 02/01/2022 03/19/2022 3:02 PM EDT S&W CP History of COVID-19Comment: Retesting fo r COVID is not recommended unless infectious syndrome persists with no alternate explanation. 02/08/2022 02/08/2022 Positive test on 01/23/2022 Please do not retest prior to 04/25/2022 Please call Infection Prevention [phone] with questions. documented as of this encounter Care Teams Tracer Lathe Set Up Operator Relationship Specialty Start Date End Date None PCP - General 03/10/19 None documented as of this encounter
--- OUTSIDE RECORDS SUMMARY | 2022-04-21 11:19 | XMS_ITS | Encounter Summary ---
:1990 Author Organization [facility] [place] [address] Care Team Providers Name Role Phone None Primary Care Provider Unavailable Reason for Visit Auth/Cert Specialty Diagnoses / Procedures Referred By Contact Refer red To Contact Diagnoses Cardiac arrest intubated med misuse/covid Tex Robles MD [facility] Procedures ER IPI Admit [facility] Dr Darian Prabhakar [place] [id number] Referral ID Status Reason Start Date Expiration Date Visits Requ ested Visits Authorized [id number] 1 1 Encounter Details Date Type Department Care Team Description 02/15/2022 Surgery Main Operating Room Jayme Armstrong D [facility] AND Josh Clement MD SU[facility]U, [facility] (WRU 1.01) [facility] [place] [address] [place] [address] [phone] Social History Tobacco Use Types Packs/Day Years [...] Sign Reading Time Taken Comments Blood Pressure 137/87 02/15/2022 3:38 AM EDT Pulse 89 02/15/2022 3:38 AM EDT Temperature 36.5 ??C (97.7 ??F) 02/15/2022 3:38 AM EDT Respiratory Rate 17 02/15/2022 3:38 AM EDT Oxygen Saturation 98% 02/15/2022 3:38 AM EDT Inhaled Oxygen Concentration - - [...] ??? Mandible fracture HPI: (Per Cristina Hillman, AGRICULTURAL EXTENSION OFFICER on 01/23/2022) History provided by patient's father and chart review. The patient was found by his father at 5pm this evening after an unknown period of down-time. The patient was able to speak and reported left armpain; he also reported taking fentanyl. His father called 911. On EMS arrival he was given narcan without change to neuro exam. The transport events to [facility] are not clear, but the patient [...] was started on levophed and transferred to [facility] for ongoing management. ?? Urine drug screen: +barbiturates, +oxycodone, +opiates Tylenol, salicylates, and ethanol were negative ?? Notable labs: WBC 27.6 Hgb 21.5 Plts 383 ?? K 7.8-> 5.4 CO2 11 BUN 32 Cr 4.37 AG 35 Lactate >10 ?? AST 3588 ALT 990 ?? Trop-I >9000 ?? SARS-CoV-2 RNA detected ? En-route to [facility] he was given boluses of ketamine for [...] escalated. On 02/10 [facility] and transferred back to the floor on [...] Allowed for activity as tolerated. Weaning dilaudid COUNTER WAITER. Seen by PT/OT with rec for rehab. 03/17: Dressings changed at bedside. Continue COUNTER WAITER weaning. Low phos, high protein, high calorie diet.IV vanc and meropenem started (-03/19) and PO vanc (- 03/26). Emesis x1. 03/18: COUNTER WAITER dc'd. BIT consulted for suboxone. Bedside dressing change. 03/19: To be dc'd to [facility] with bed availability. High UOP w/ [...] who have questions please contact the health manager wound care that requested your imaging first. Head wo Contrast (Generic) (Exam End: 01/23/2022 3:58 AM) Impression Globi pallidi infarcts. Mild cerebral edema. Thank you for letting us participate in the care of this patient. If you are a health care provider and have any questions regarding this report, please contact the number below. For patients who have questions please contact the health manager wound care that requested your imaging first. Electronically signed by: Rex Addison MD, [facility] ([phone]), at 01/23/2022 4:27 AM XR Abdomen 1 [...] who have questions please contact the health manager wound care that requested your imaging first. Electronically signed by: Jacky Mello MD, [facility] ([phone]), at 01/23/2022 8:[address] Lower Extremity [...] who have questions please contact the health manager wound care that requested your imaging first. Electronically signed by: Melita Mills MD, [facility] ([phone]), at 01/24/2022 1:[address] Chest wo [...] who have questions please contact the health manager wound care that requested your imaging first. Electronically signed by: Rex Addison MD, [facility] ([phone]), at 01/23/2022 4:[address] Upper Extremity [...] who have questions please contact the health manager wound care that requested your imaging first. Electronically signed by: Rex Addison MD, [facility] ([phone]), at 01/23/2022 4:58 AM XR Forearm Left [...] who have questions please contact the health manager wound care that requested your imaging first. Electronically signed by: Rex Addison MD, [facility] ([phone]), at 01/23/2022 7:14 AM XR Chest One [...] who have questions please contact the health manager wound care that requested your imaging first. Electronically signed by: Rex Addison MD, [facility] ([phone]), at 01/23/2022 6:56 AM XR Femur 2 views Left (Generic) (Exam End: 01/23/2022 2:04 PM) Impression No significant osseous finding. Thank you for letting us participate in the care of this patient. If you are a health care provider and have any questions regarding this report, please contact the number below. For patients who have questions please contact the health manager wound care that requested your imaging first. Electronically signed by: Lisandro Pruett MD, [facility] ([phone]), at 01/23/2022 2:10 PM XR Tibia Fibula Left (Generic) (Exam End: 01/23/2022 2:04 PM) Impression No bony abnormality seen. Thank you for letting us participate in the care of this patient. If you are a health care provider and have any questions regarding this report, please contact the number below. For patients who have questions please contact the health manager wound care that requested your imaging first. Electronically signed by: Jacky Mello MD, [facility] ([phone]), at 01/23/2022 2:07 PM XR Chest One [...] who have questions please contact the health manager wound care that requested your imaging first. Electronically signed by: Lisandro Pruett MD, [facility] ([phone]), at 01/23/2022 5:01 PM MRI Brain wo [...] who have questions please contact the health manager wound care that requested your imaging first. Electronically signed by: Bernadine Edward [facility] ([phone]), at 01/24/2022 4:[address] Angiogram [place] (Exam End: 01/24/2022 11:32 PM) Impression Normal appearance of the large and medium size arteries of the head and neck Thank you for letting us participate in the care of this patient. If you are a health care provider and have any questions regarding this report, please contact the number below. For patients who have questions please contact the health manager wound care that requested your imaging first. Angiogram Carotids [...] who have questions please contact the health manager wound care that requested your imaging first. Chest Abdomen [...] who have questions please contact the health manager wound care that requested your imaging first. Electronically signed by: Melita Mills MD, [facility] ([phone]), at 01/30/2022 3:20 PM IR Arteriogram Lower [...] 2. 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 Monitor for Right [...] a permanent image was stored. A 5 Emirati sheath was placed. Vessel accessed: Right common femoral artery Access technique: Micropuncture set with 21 gauge needle Left pelvic angiography The left pelvic arterial system was catheterized using a 150 cm 0.035 3J guidewire, 5 Emirati Berenstein catheter, 3 Emirati renegade STC microcatheter and wire. Vessel catheterized: [...] who have questions please contact the health manager wound care that requested your imaging first. Electronically signed by: Nicole Vivas MD, [facility] ([phone]), at 02/08/2022 3:14 PM XR Chest One [...] who have questions please contact the health manager wound care that requested your imaging first. Electronically signed by: Boubacar Olsen MD, [facility] ([phone]), at 02/07/2022 1:37 PM MRI Brain wo [...] who have questions please contact the health manager wound care that requested your imaging first. Electronically signed by: Bernadine Edward [facility] ([phone]), at 02/11/2022 5:54 PM XR Abdomen 1 view (Generic) (Exam End: 02/13/2022 8:10 AM) Impression No obstruction. No perforation. Thank you for letting us participate in the care of this patient. If you are a health care provider and have any questions regarding this report, please contact the number below. For patients who have questions please contact the health manager wound care that requested your imaging first. Electronically signed by: Mercedes Redding MD, [facility] ([phone]), at 02/13/2022 8:[address] Abdomen & [...] who have questions please contact the health manager wound care that requested your imaging first. Electronically signed by: Zander Hayes DO [facility] ([phone]), at 02/13/2022 6:[address] Femur w Contrast Left (Exam End: 02/13/2022 [...] who have questions please contact the health manager wound care that requested your imaging first. PICC Placement Over 5 Years with Imaging [...] who have questions please contact the health manager wound care that requested your imaging first. Electronically signed by: Danielle Figueroa MD, [facility] ([phone]), at 03/03/2022 2:49 PM Discharge Exam: Last value Range last 12 hrs Temperature Temp: 36.4 ??C (97.5 ??F) Temp: -- Heart Rate Heart Rate: (!) 118 Heart Rate: [118] Blood Pressure BP: 154/87 BP: (154)/(87) Respiratory Rate Resp: 16 Resp: [16] SpO2 SpO2: 97 % SpO2: [97 %] I/Os: I/O last 3 completed shifts: In: 5040 [P.O.:5040] Out: 39976 [Urine:40632] I/O this shift: In: - Out: 500 [Urine:500] Gen: AOx3, NAD, resting comfortably CVS: Regular rate and rhythm Resp: breathing comfortably on RA Abd: soft, non-tender, nondistended Ext:: LLE wound with dressing in place,??non-tender,??L forearm wound under dressing, non tender.??Incision: dressing c/d/i. No evidence of hematoma/seroma/infection Discharge Plans: Discharge to: Rehab Name of facility: [facility] Contact information: Dr. Rosa, VNA: No Discharge Conditions/Prognosis: Stable Discharge Medications: The following medications have been prescribed for you. If you notice any adverse reactions to your medications, please contact your primary care physician immediately or go to the nearest Emergency Department. In addition to these medications, you are being prescribed Suboxone 8mg BID. Please continue this medication at [facility]. Your Medications New Medications Dose Details acetaminophen [...] Date: 10/22/22 Question Response Notes Preferred location? [facility] [106] Indication for study/signs & symptoms [...] 1. You will have follow-up appointments at [facility] as indicated in the ???Future Appointments and [...] on the next business day. Please call [phone] if you do not hear from us by that time, as your timely follow-up is very important to us. Your care was managed by the Trauma and Acute Care Surgery Team at [facility]. If you have any questions or concerns, please feel free to contact us. Provider Contact Information: General Surgery: [facility] (after business hours): CC: Compartment syndrome Primary Care Physician: None General Instructions Substance Use Treatment, Harm-Reduction, and Relapse Prevention Resources Residential Treatment: [facility] [address] [place], [place] [id number] [address] [address] Intensive Outpatient Programs: Quitting Time [facility] [address] [place], [place] [id number] Health Care and Rehabilitative Services [address] [place] [address] [phone] Individual Counseling: [facility] [address] [place], [place] [id number] ALEX Whitlock [address], [address] [place] [address] ----and---- [address] [place] [address] [facility] [address], [address] [place], [place] [phone] Offers EMDR Therapy You may also search www.KartoonArt.Gigmax or dial 211 for therapists in your area. EMDR Therapy [...] completed in fewer sessions than other psychotherapies. www.emdria.org/auuru-enzz-gwywvzc/ Medication Assisted Therapy: [facility] [address] [place], [place] [id number] [address] [id number] [facility] [address] [place] [address] [facility], [place] [id number] [facility] [address] [place] [address] [facility], [place] [phone] Peer Support Groups Alcoholics Anonymous (AA) [place]: , www.nhaa.net Narcotics Anonymous (NA) [place]: , www.gmana.org Community Peer Support Center Journey to Recovery [address] [place], [place] Online AA and NA Meetings AA, NA, Refuge Recovery, SMART Recovery www.Bobex.com.Gigmax AA Video Meetings www.aa-intergroup.org/directory_audio-video.php AA Text Chat Meetings www.aa.intergroup.org/directory.php NA Video Meetings www.virtual-na.org/meetings NA Text Chat Meetings Www.neveraloneclub.org SMART Recovery Meetings via Zoom 5:00-6:00pm, free and open to all To join Zoom meetin. Visit www.Loctronix 2. Click on calendar on top of toolbar 3. Find the correct meeting date and time 4. Click the zoom link and enter password provided Additional Substance Use Treatment Resources Www.vtaddictionservices.org www.healthvermont.gov/alcohol-drugs www.bdzpkro427.org/ (Search for Substance Use) www.Job1001/ Www.rethinkingdrinking.niaaa.nih.gov/ www.[facility].gov/pfqkzszxyz-rexitgum-ptzpyxnzs/nokxnbuoidby-dfaqijw-wcrq/treatment -practitioner-business quality assurance analyst Mental Health Crisis [place] Mental [facility] Crisis Line: Dial 988 www.[facility].gov/find-help/988 Harm-Reduction Resources Mobile operations. For more information about receiving supplies: including syringe exchange, fentanyl test strips, and naloxone, or to schedule an appointment: [place] clients call and leave a message for Graciela (ext. 105) or Doc Liu (ext. 104). [place] clients call to speak with Doc Choi [...] is being approved. Online Stress Reduction Resources www.Zinio.Gigmax/videos-features/videos/peozibloo-kkrfkyscl-7-7-8-breath/ www.NetPosa Technologies.org/2013/getucetbx-zgpnzwluh-ikwicly-moment/ www.headsZhengedai.comce.Gigmax/ www.mindful.org/ www.freemindfulness.org/ Employment Agency [employer] [address] [place] [address] secondchances@[employer] Providing an opportunity for successful employment and recovery by empowering individuals to manage challenges because of substance use addiction and past convictions. CC: Compartment Syndrome Signed: Vance Curiel MD PGY1 Acute Care Surgery Team Pager [phone] 03/23/2022 4:18 PM I saw and evaluated [...] this encounter Discharge Instructions Discharge InstructionsMiguel Prather, AGRICULTURAL EXTENSION OFFICER - 02/12/2022 3:40 PM EDT Substance Use Treatment, Harm-Reduction, and Relapse Prevention Resources Residential Treatment: [facility] [address] [place], [place] [phone] [facility] [address] [place], [place] [address] Intensive Outpatient Programs: [facility] [address] [place] [address] Health Care and Rehabilitative Services [address] [place] [address] Individual Counseling: [facility] [address] [place], [place] [address] ALEX Whitlock [address] [place] [address] ----and---- [address] [place], [place] [address] [facility] [address] [place], [place] [address] Offers EMDR Therapy You may also search www.psychologytoday.com or semanticlabs for therapists in your area. EMDR Therapy [...] completed in fewer sessions than other psychotherapies. www.emdria.org/elzgd-zikp-crtgygk/ Medication Assisted Therapy: [facility] [address] [place], [place] [id number] [address] [address] [facility] [address] [place] [address] [place] [address] [facility] [address] [place] [address] [place] [address] Peer Support Groups Alcoholics Anonymous (AA) [place]: , www.nhaa.net Narcotics Anonymous (NA) [place]: , www.gmana.org Community Peer Support Center Journey to Recovery [address] [place], [place] Online AA and NA Meetings AA, NA, Refuge Recovery, SMART Recovery www.AirDroids AA Video Meetings www.aaChannelMeterintergroup.org/directory_audio-video.php AA Text Chat Meetings www.aaHomeschooling Through the Agesintergroup.org/directory.php NA Video Meetings www.Tarquin Groupna.org/meetings NA Text Chat Meetings Www.Palringoaloneclub.org SMART Recovery Meetings via Zoom 5:00-6:00pm, free and open to all To join Zoom meeting: Visit www.Loctronix Click on calendar on top of toolbar Find the correct meeting date and time Click the zoom link and enter password provided Additional Substance Use Treatment Resources Www.vtaddictionservices.org www.health[place]mont.gov/alcohol-drugs www.[place] [address].org/ (Search for Substance Use) www.KartoonArt.Gigmax/ Www.rethinkingdrinking.niaaa.nih.gov/ www.samhsa.gov/vfecxxlqbl-ulzbxxrc-ncgqyvaml/byglgbgkjecv-jqmkoec-xykg/treatment -practitioner-business quality assurance analyst Mental Health Crisis National Mental [facility] Crisis Line: Dial 988 www.samhsa.gov/find-help/988 Harm-Reduction Resources Mobile [employer]. For more information about receiving supplies: including syringe exchange, fentanyl test strips, and naloxone, or to schedule an appointment: MT clients call and leave a message for Graciela (ext. 105) or Doc Liu (ext. 104). NE clients call to speak with Doc F. [...] is being approved. Online Stress Reduction Resources www.Zinio.Gigmax/videos-features/videos/luvdnlgqr-yuvbrcuvu-4-7-8-breath/ www.NetPosa Technologies.org/2013/mdevbmfxg-txbxiqjoq-kwjxsdz-moment/ www.Extreme Wireless Communication/ www.mindGoGo Labs.org/ www.Databox.org/ Employment Agency [employer] [address] [place] [address] [employer] Design@[employer] Providing an opportunity for successful employment and [...] 1. You will have follow-up appointments at [facility] as indicated in the ???Future Appointments and [...] on the next business day. Please call [phone] if you do not hear from us by that time, as your timely follow-up is very important to us. Your care was managed by the Trauma and Acute Care Surgery Team at [facility]. If you have any questions or concerns, please feel free to contact us. Provider Contact Information: General Surgery: [facility] (after business hours): CC: Compartment syndrome Primary Care Physician: None AttachmentsThe following attachments cannot be sent through Care Everywhere. Compartment Syndrome (Cypriot)documented in this encounter Medications at Time of [...] 03/23/2022 3:13 PM EDT Pt d/c to [facility]. Report given to ÁNGEL Roland. Ambulance arrived 1430 to transport pt. Piccremains in place. Hernán Hobbs - 03/23/2022 2:11 PM EDT Office of Care Management/Life Agent Patient Name: Alix Holland : 1990 Patient has been offered an Acute IRF bed at [facility]. [facility] arranged for a BLS transport at 1430. Ambulance will need: Medicare ambulance form completed and signed (MD or Assembler Erector RN/PROGRAMMING DEVELOPMENT PROJECT MANAGER) Copy of patient demographics [place] Out of Hospital DNR/DNI order, if active MD to MD report to Dr. Rosa at [phone]. Please call Nursing Report to [phone], ask for artisan plasterer. Info to accompany patient: Copies of Medication Administration Records and IV sheets for past 10 days. Plan: Life Agent will be available to the patient and Assembler Erector-RN and/or Cloth Packer for further assistance. Patient will be discharged to: [place] [address] Aj Bahena Sivakumar Trevino PTA - 03/23/2022 1:25 PM [...] managment/propulsion training. Total Minutes, Physical Therapy: 55 ([phone]) Billing Code: TESx2, TEFx2 Sivakumar Gaines SVETLANA Trevino Pager: [phone] Physical Therapy Inpatient Rehabilitation Department Lizzy Love RN - 03/23/2022 12:41 PM EDT Physician Certification Statement for Non-Emergency Ambulance Services Section I - General Information Alix Holland 1990 Medicaid Number:[id number] Transport Date: 03/23/2022 (PCS is valid for round trips on this date and for all repetitive trips in the 60-day range as notedbelow.) Origin: [facility] Destination: [facility] Acute Rehabilitation and Sub-Acute (Swing) Rehab Levels of Care [address] [place] [address] Is the patient's stay covered under Medicare [...] wheelchair van (i.e. seated during transport, without medical/surgery registered nurse or monitoring?): No 4) In addition to [...] by the Centers of Medicare and MedicaidServices ([facility]) to support the determination of medical [...] pt need to f-u with surgeon or SCHOOL COUNSELOR (please indicate reason if attending provider): Attending [...] and left superior gluteal artery via R MARINE EQUIPMENT DESIGN ENGINEER access. Reason for intervention: Follow up Nutrition [...] 02/05/2022 TRIG 359 01/26/2022 CRP <3.0 04/26/2021 [id number] 02/03/2022 25OHVITD 12 (L) 02/19/2022 SFOLATE [...] encounter: 78.2 kg (172 lb 8 oz). [place] Body Weight: 80.9kg- [place] Usual Body Weight: [...] Based on IBW 80.9kg Estimated needs: Calories: 9416-1662 (25-30kcal/kg) Protein: 120 grams (1.5 g/kg IBW) Nutrition Focused Physical Exam (NFPE): Performed on 03/01/22. Subcutaneous fat loss at Orbital region: Moderate Upper arm region (triceps/biceps): Mild Thoracic and lumbar region (ribs, lower back and maxillary line): Not assessed Lean muscle loss to Adventism region (temporalis muscle): Moderate Clavicle bone region [...] while inpatient THANKS KAYLAH JANG RD Pager #:[phone] Josh Peck RN - 03/22/2022 6:30 PM [...] difficulty obtaining soboxone prescription. Bed available at [facility]. Dressing changes today by nursing. Neuro consulted [...] Gomez MD PGY1 Acute Care Surgery pager [phone] I saw and evaluated the patient with [...] Hidalgo MD PGY5 Acute Care Surgery pager [phone] Attending Addendum I have seen and examined [...] PT/OT and dispo planning DAmi Chatterjee MD Jeanette Chatterjee MD - 03/20/2022 [...] Hidalgo MD PGY5 Acute Care Surgery pager [phone] Attending Addendum I have seen and examined [...] PT/OT and dispo planning Matthias Chatterjee MD Gail Quiroz RN - 03/19/2022 4:11 PM EDT Per request this senior writer updated patient on inpatient rehabilitation facility search, informed that [facility] is following the referral, however at this time does not have acute rehab bed availability till 03/22/2022. Alix would like referral to [facility] which is closed to home. Discussed that [facility] is SNF with less therapy hours available. Patient verbalized understanding and in would like referral placed to: [address] [address] RS please submit referral with all supporting [...] Started Suboxone per Psych recs. - Discontinued COUNTER WAITER Dilaudid yesterday (03/18). - Discontinued IV Vanc [...] None (Room air) Intake/Output: 03/18 0701 - 08/19 0700 In: 2620 [P.O.:2620] Out: 6675 [Urine:6675] [...] No recent imaging Assessment and Plan Alix J Ochoa is a 31 y.o. male with HTN, [...] is ongoing. Possibly will be discharged to [facility] but there are no beds currently. He may need a COVID test prior to discharge per facility request; otherwise, monitor with weekly CBCs and BMPs. He had his dressings changed at the bedside yesterday with Dr. Chatterjee who used Aquafor instead of silver gel. COUNTER WAITER (dilaudid) was discontinued yesterday (03/18). He completed [...] status; PT/OT consulted: recommend acute rehab - Plaster Block Layer sent requests to 2 locations with ongoing [...] plan to change again today. - D/C COUNTER WAITER (Dilaudid) today. - On IV Vanc and [...] is ongoing. Possibly will be discharged to [facility] but there are no beds currently. He had his dressings changed at the bedside yesterday with Dr. Chatterjee who used bacitracin; completed another dressing change today with Aquafor instead of silver gel. COUNTER WAITER (dilaudid) was discontinued today. Diet remains as high calorie/protein with the addition of TUMS at meals. He will complete a course of IV Vancomycin and Meropenem (ends 03/19) before switching to PO Vancomycin (ends 03/26). Plan: Neuro: #Pain - [place] PO Tylenol 1000 mg q8h - D/c dilaudid COUNTER WAITER - PO Oxycodone 10-15 PRN Q4 #Polysubstance [...] status; PT/OT consulted: recommend acute rehab - Plaster Block Layer sent requests to 2 locations with ongoing [...] 03/26) as recommended by ID - Weaning COUNTER WAITER (dilaudid) with the plan to d/c it [...] managment/propulsion training. Total Minutes, Physical Therapy: 60 ([id number]) Billing Code: TEFx2, GT Sivakumar Trevino PTA Pager: [phone] Physical Therapy Inpatient Rehabilitation Department Jeanette Chatterjee [...] 03/26) as recommended by ID - Weaning COUNTER WAITER (barbara) with the plan to d/c it tomorrow [...] another dressing change tomorrow with silver gel. COUNTER WAITER will continue to be weaned. Diet was changed from low phosphorus to high calorie/protein with the addition of TUMS at meals. Additionally, his antibiotics were restarted today; he will complete a course of IV Vancomycin and Meropenem (ends 03/19) before switching to PO Vancomycin (ends 03/26). Plan: Neuro: #Pain - [place] PO Tylenol 1000 mg q8h - dilaudid COUNTER WAITER, weaning - PO Oxycodone 10-15 PRN Q4 [...] Dispo: Floor status; PT/OT consulted, recommend acute rehab--Plaster Block Layer sent requests to 2 locations. Code Status: [...] and dispo planning D. Aidan Chatterjee MD Sivakumar Trevino PTA - 03/16/2022 [...] - Now off of antibiotics - Weaning COUNTER WAITER (dilaudid) Social History: Home setup: Pt lives [...] had pt perform gastroc stretch with leg in room dining server MMT L Gastroc 2-/5 Balance: Seated Static: [...] Pt limited in distance due to his COUNTER WAITER pump, but once DCd pt could likely [...] managment/propulsion training. Total Minutes, Physical Therapy: 40 ([id number]) Billing Code: DIAMONDDEACON, RESPIRATORY CARE FACULTY Pager: [phone] Physical Therapy Inpatient Rehabilitation Department Jairo Kirkland [...] the chair for a period of time 05/10 left leg pain is similar to yesterday, [...] 431 msec Imaging: External records in - [facility]: Yes - CareEverywhere: No - Paper [...] Felix MD Infectious Diseases Fellow- PGY4 Pager: [phone] 03/16/2022 2:15 PM ID Attending I have [...] LUE ?? Social History: Patient lives in [place], [place] with his dad. Home Setup: [facility], 2 level home, bedroom on 1st level, bathroom available on 1st level, has a tub shower downstairs. DME: none Baseline ADL/Mobility: Pt reports he was independent w/ ADL's and IADL's, had worked for a [employer]. He enjoys hunting and fishing. He reports he likes country music ?? Interval History: Pt to OR last week for LUE and LLE grafts. Per MD Note 03/16 - Now off of bedrest - Dressing change in the OR yesterday - Now off of antibiotics - Weaning COUNTER WAITER (dilaudid) Precautions/Special Considerations: SOAP/WATER; fall risk, LUE/LLE WBAT, L forearm and L thigh grafts, COUNTER WAITER S: I need some help with that [...] 2-4 times/wk Total Minutes, Occupational Therapy: 30 (formerly [facility] x2 ([phone]) Pager: [phone] [facility] Occupational Therapy Rehabilitation Department Kaylah [...] and left superior gluteal artery via R MARINE EQUIPMENT DESIGN ENGINEER access. Reason for intervention: Follow up Nutrition Recommendations: Regular diet ; enc high protein high calorie Given tendency toward intake < est needs, suggest omit low phosphorus restriction and give TUMs w/ meals Limit NPO to periods to only when necessary to avoid missing nutrition windows Encourage pt to continue double portions protein and milk with meals Discussed above w/ E. Sergio HARTLEY #[phone] Active Orders Diet High Protein - High [...] 02/05/2022 TRIG 359 01/26/2022 CRP <3.0 04/26/2021 [id number] 535 02/03/2022 25OHVITD 12 (L) 02/19/2022 SFOLATE [...] encounter: 78.9 kg (173 lb 15.1 oz). [place] Body Weight: 80.9kg- [place] Usual Body Weight: [...] Based on IBW 80.9kg Estimated needs: Calories: 6923-4592 (25-30kcal/kg) Protein: 120 grams (1.5 g/kg IBW) Nutrition Focused Physical Exam (NFPE): Performed on 03/01/22. Subcutaneous fat loss at Orbital region: Moderate Upper arm region (triceps/biceps): Mild Thoracic and lumbar region (ribs, lower back and maxillary line): Not assessed Lean muscle loss to Adventism region (temporalis muscle): Moderate Clavicle bone region [...] while inpatient THANKS KAYLAH JANG RD Pager #:[phone] Jeanette Chatterjee MD - 03/16/2022 5:38 AM [...] - Now off of antibiotics - Weaning COUNTER WAITER (dilaudid) Objective Vitals: Last Value Range last [...] Their notes will be sent by the Plaster Block Layer to the rehab facilities. Will likely have dressing change tomorrow. Currently weaning his dilaudid COUNTER WAITER. 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 Patient states pain is 9/10, PRN medication given and pt repositioned. Dilaudid COUNTER WAITER infusing with COUNTER WAITER doseonly. No complaints of chest pain/SOB. No [...] recommendations below - Pain remains well-controlled with COUNTER WAITER and decreasing - Tolerating High calorie, high [...] bedrest. Plan: Neuro: [place] PO Tylenol, dilaudid COUNTER WAITER, PO Oxycodone 10-15 PRN Q4, Zofran PRN, [...] Oxycodone given. Takes sips of water easily. COUNTER WAITER re-started per order. Pt. Self dosing. Has [...] PICC line placed 03/03/2022 External Record in Epic: Yes Care Everywhere:No Paper Record: No Assessment/Plan: [...] Felix MD Infectious Diseases Fellow- PGY4 Pager: [phone] 03/15/2022 8:55 AM I have discussed case with Dr. Jairo Kirkland This note was created using ODIN voice recognition software. ID Attending I have [...] Reporting 8 to 10/10 pain, using dilaudid COUNTER WAITER and PRN oxygen given x2. No BM [...] ADLs]: Hands on Surveillance [continuous indirect monitoring]: Yohan, rounding, personal items and call starks withinreach, [...] recommendations below - Pain remains well-controlled with COUNTER WAITER and decreasing - Tolerating High calorie, high [...] None (Room air) Intake/Output: 03/13 0701 - 08/14 0700 In: 3280 [P.O.:3080; I.V.:200] Out: 3850 [...] HCT 27.5* PLATELET 254 Recent Labs 03/13/22 06 NA 139 K 3.9 CL 101 CO2 [...] that time. Plan: Neuro: [place] PO Tylenol, COUNTER WAITER, PO Oxycodone 10-15 PRN Q4, Zofran PRN [...] kerlix, coban - Pain remains well-controlled with COUNTER WAITER - Tolerating High calorie, high protein diet [...] NEURO: AOx3, follows commands Labs: Recent Labs 03/13/22601 WBC 8.0 HGB 9.1* HCT 27.5* PLATELET 254 Recent Labs 03/13/22601 NA 139 K 3.9 CL 101 CO2 [...] 1g Q8H. Plan: Neuro: [place] PO Tylenol, COUNTER WAITER PO Oxycodone 10-15 PRN Q4, Zofran PRN [...] AM for skin graft dressing change on bt LLE and LUE Skin grafting on 03/10. [...] 4 Acute Care Surgery 03/13/22 Team Pager [phone] A medical student assisted me in the [...] 10:41 AM EDT Patient came back to [facility] from PACU via bed in stable condition. Amy Pineda RN - 03/13/2022 10:31 AM EDT 0931 Pt arrived to PACU lethargic, oral airway in place. Connected to monitors, alarms set and reviewed. VSS. LUE/LLE dressings CDI, only to be changed by MD. RLE dressings with dried drainage. 0945 Pt more awake, c/p pain, utilizizing COUNTER WAITER. 1000 Tolerating sips of lenora opal. Report given to ÁNGEL Deleon on [facility] Adrienne Tejada RN - 03/13/2022 7:52 AM [...] suction - Pain remains well controlled with COUNTER WAITER - Tolerating High calorie, high protein diet [...] Inpatient Alonzo Oakley, MS4 Acute Care Surgery 03/12/22 Team Pager [phone] A medical student assisted me in the [...] out of bed. JASWINDER CHUNG, SVETLANA Pager: [phone] Physical Therapy Inpatient Rehabilitation Department Adrienne Tejada [...] to iHD and transferred to floor status 7/5, however he had persistent daily transfusion requirement [...] any alarming from wound vac, immediately page [phone]. S/p 3 days of IV iron, now [...] 03/14 for OR. If any alarming, page [phone]. - s/p multiple fasciotomies, OR debridements, and [...] VAC particularly not holding suction please page [phone] immediately given that thiswill affect skin graft take -High-protein high-calorie low Phos diet -Plan to return to the operating room on Tuesday for VAC removal, bedrest until then -COUNTER WAITER for pain control will wean as able Veto Hidalgo MD PGY 5 Acute care surgery pager [phone] Marylou Retana RN - 03/10/2022 7:12 PM EDT Patient arrived back to unit from PACU @ approximately 1630. VSS on RA, drowsy but arouses to voice.COUNTER WAITER in place, pt continues to report 10/10 [...] 4 03/10/22 Acute Care Surgery Team Pager [phone] A medical student assisted me in the [...] Device O2 Device: None (Room air) Intake/Output: 03/08 0701 - 03/09 07 In: 2360 [P.O.:2350; I.V.:10] Out: 3825 [Urine:3825] [...] LUE ?? Social History: Patient lives in [place], [place] with his dad. Home Setup: 2 [facility], 2 level home, bedroom on 1st level, bathroom available on 1st level, has a tub shower downstairs. DME: none Baseline ADL/Mobility: Pt reports he was independent w/ ADL's and IADL's, had worked for a [employer]. He enjoys hunting and fishing. He reports [...] Pt demonstrated ability to doff socks with computer mechanic and don socks with sock aid ?? [...] 2-4 times/wk Total Minutes, Occupational Therapy: 32 (formerly [facility] x2 ([phone]) Pager: [phone] [facility] Occupational Therapy Rehabilitation Department Tanesha [...] Denilson Muniz - 03/08/2022 3:14 PM EDT Optical Laboratory Manager Encounter Note Patient Name: Alix Holland : [id number] MR#: [id number] Admit Date: 01/23/2022 12:29 AM Hospital Day 44 days Narrative:Visited to introduce and assess acceptance of Optical Laboratory Manager services.Patient was not available and I will [...] IADLs, drives, used to work for a [employer] company but is not currently working. Enjoys [...] the above impairments and facilitate return to OF. Discharge Recommendations: Based on the current findings, [...] Physical Therapy: 40 TE-F x 3 JASWINDER CHUNG, RESPIRATORY CARE FACULTY 03/08/2022 Pager: [phone] Physical Therapy Inpatient Rehabilitation Department Lizzy Miranda, [...] and left superior gluteal artery via R MARINE EQUIPMENT DESIGN ENGINEER access. Reason for intervention: Follow up Nutrition [...] 02/05/2022 TRIG 359 01/26/2022 CRP <3.0 04/26/2021 [id number] 535 02/03/2022 25OHVITD 12 (L) 02/19/2022 SFOLATE [...] encounter: 77.4 kg (170 lb 11.2 oz). [place] Body Weight: 80.9kg- [place] Usual Body Weight: [...] Based on IBW 80.9kg Estimated needs: Calories: 5476-7680 (25-30kcal/kg) Protein: 120 grams (1.5 g/kg UBW) Nutrition Focused Physical Exam (NFPE): Performed on 03/01/22. Subcutaneous fat loss at Orbital region: Moderate Upper arm region (triceps/biceps): Mild Thoracic and lumbar region (ribs, lower back and maxillary line): Not assessed Lean muscle loss to Adventism region (temporalis muscle): Moderate Clavicle bone region [...] while inpatient THANKS Lizzy Miranda RD Pager #:[phone] Nancy Chahal MD - 03/08/2022 2:35 PM EDT Surgery Service Wound Vac Change Note ID: Ailx Holland ( ) Wound Vac Change #1 [...] WOUND VAC NOTE Alix Holland 31 y.o./male [id number] DATE: 03/07/22 Admit Date: 01/23/2022 12:29 AM [...] Therapy: 30 TE-F x 2 JASWINDER CHUNG, SVETLANA 03/05/2022 Pager: [phone] Physical Therapy Inpatient Rehabilitation Department Tanesha Patel [...] LUE ?? Social History: Patient lives in [place], [place] with his dad. Home Setup: 2 [address], 2 level home, bedroom on 1st level, bathroom available on 1st level, has a tub shower downstairs. DME: none Baseline ADL/Mobility: Pt reports he was independent w/ ADL's and IADL's, had worked for a [employer] company. He enjoys hunting and fishing. He [...] 2-4 times/wk Total Minutes, Occupational Therapy: 35 (formerly [facility] x2 ([phone]) Pager: [phone] [facility] Occupational Therapy Rehabilitation Department Jayme [...] Tuttle RN - 03/03/2022 7:32 PM EDT 5: pt arrived to unit, attached to monitors, [...] Therapy: 30 TE-F x 2 JASWINDER CHUNG, SVETLANA 03/03/2022 Pager: [phone] Physical Therapy Inpatient Rehabilitation Department Jayme Armstrong [...] LUE ?? Social History: Patient lives in [place], [place] with his dad. Home Setup: 2 [address], 2 level home, bedroom on 1st level, bathroom available on 1st level, has a tub shower downstairs. DME: none Baseline ADL/Mobility: Pt reports he was independent w/ ADL's and IADL's, had worked for a [employer]. He enjoys hunting and fishing. He reports [...] 2-4 times/wk Total Minutes, Occupational Therapy: 35 (formerly [facility] x2 ([phone]) Pager: [phone] [facility] Occupational Therapy Rehabilitation Department Madhavi [...] Given lenora opal and water at bedside, [place] sandwich requested. LUE wound VAC dressing intact [...] and the PICC line teams today. Resume regular diet after the operating room. Jayme Armstrong MD Denilson Muniz - 03/01/2022 3:38 PM EDT Optical Laboratory Manager Encounter Note Patient Name: Alix Holland : [id number] MR#: [id number] Admit Date: 01/23/2022 12:29 AM Hospital Day [...] and left superior gluteal artery via R MARINE EQUIPMENT DESIGN ENGINEER access. Reason for intervention: Follow up Nutrition [...] 02/05/2022 TRIG 359 01/26/2022 CRP <3.0 04/26/2021 [id number] 535 02/03/2022 25OHVITD 12 (L) 02/19/2022 SFOLATE [...] encounter: 82.1 kg (180 lb 14.4 oz). [place] Body Weight: 80.9kg- [place] Usual Body Weight: [...] Based on IBW 80.9kg Estimated needs: Calories: 2685-2573 (25-30kcal/kg) Protein: 120 grams (1.5 g/kg UBW) - pt on iHD w/ wound vacs Nutrition Focused Physical Exam (NFPE): Performed on 03/01/22. Subcutaneous fat loss at Orbital region: Moderate Upper arm region (triceps/biceps): Mild Thoracic and lumbar region (ribs, lower back and maxillary line): Not assessed Lean muscle loss to Adventism region (temporalis muscle): Moderate Clavicle bone region [...] inpatient Thank you, KAYLAH JANG RD Pager #:[phone] Josh Peck RN - 03/01/2022 2:00 AM EDT [place] [...] 4:44 PM EDT Hypertension/Nephrology Inpatient Follow-up Alix Melita Ochoa [id number] 1990 ID: 31 y.o. old male seen [...] changed vitamin D3 400 U -> D2 02035 weekly for six weeks given his severe deficiency. Would recommend rechecking a level after this (likely after discharge). - Continue daily MV - Avoid NSAIDs, contrast, and other nephrotoxic agents as able - Agree with iron studies on 03/01 as he will likely need replacement This case was discussed with staff electrostatic powder coating technician Dr. Thomas. We will sign off at this time. Please do not hesitate to contact me with questions or concerns: Ph [phone] Pg [phone]. Dominic Almanza MD Nephrology Fellow, [...] protein intake. Dania Thomas MD Nephrology Pager: [phone] Sixto Medina MD - 02/28/2022 10:28 AM [...] Attempt Cardiopulmonary Resuscitation - Inpatient JEFFERY Peterson 02/28/22 Acute Care Surgery [id number] A medical [...] requires dialysis; they recommended starting weekly EPO 16561 units, given 02/25. PIV access unable to [...] PM EDT Hypertension/Nephrology Inpatient Follow-up Alix Holland [id number] 1990 ID: 31 y.o. old male seen [...] replacement This case was discussed with staff electrostatic powder coating technician Dr. Thomas. We will follow peripherally at this time.Please do not hesitate to contact me with questions or concerns: Ph [phone] Pg [phone]. Dominic Almanza MD Nephrology Fellow, PGY-4 Associated attestation - Dania Thomas MD - 02/27/2022 5:33 PM EDT The patient was seen and examined with the nephrology fellow. Please see the nephrology fellow's note from today for details. I have reviewed the fellow's note and agree with the exam, and assessment and plan. Dania Thomas MD Nephrology Pager: [phone] Sixto Medina MD - 02/26/2022 3:14 PM [...] No evidence of hematoma/seroma/infection ?? AP Alix Hua Ochoa is a 31 y.o. male s/p wound vac change currently in stable condition and recovering well - Low Phos, Low Na Diet - Pain moderately controlled, due for medication - Hemodynamically stable, UOP adequate - Continue post operative plan per primary team Alonzo Oakley, MS4 02/26/2022 2:12PM A medical student [...] 2.39 (2.94), Nephrology following; Gave weekly EPO 80163 yesterday, start IV iron after completing Vancomycin [...] requires dialysis; they recommended starting weekly EPO 27517 units, given yesterday. Will obtain PIV access [...] 4.2 4.5 CL 105 102 102 CO2 BUN 60* 65* 61* CREATININE 2.39* 2.94* [...] Jareth Nino MD, MPH Section of Nephrology #[id number] Dania Cotter RN - 02/26/2022 10:02 AM EDT 0950 Patient admitted to PACU. Hand off received from Tamika [facility] care assumed. Assessments as documented. Monitors on, alarms audible and individualized to patient. 1015 Hand off to ÁNGEL Ontiveros [facility] Glenna Bejarano OT - 02/26/2022 8:44 AM EDT 02/26/22 [...] Voiding adequate amounts in urinal. Patient worked w/PTtoday and stood at bedside. Lift used to [...] reviewed with no apparent indication for urgent SALES AND MANAGEMENT TRAINEE. Access: Can remove dialysis catheter. We are [...] Jareth Nino MD, MPH Section of Nephrology #[id number] Jaswinder Chung [facility] - 02/25/2022 12:05 PM EDT Physical Therapy [...] IADLs, drives, used to work for a [employer] but is not currently working. Enjoys hunting [...] x 2 JASWINDER CHUNG PTA 02/25/2022 Pager: [phone] Physical Therapy Inpatient Rehabilitation Department Sixto Medina [...] Elaine Dos Santos MD 15 mg at 02/24/221814 Or ??? oxyCODONE (Roxicodone) tablet 10 mg [...] Daily Kaitlyn Rock MD 1,000 mcg at 02/24/22 0914 ??? thiamine (Vitamin B1) tablet 100 mg 100 mg Oral Daily Kaitlyn Rock MD 100 mg at 02/24/22 0914 ??? acetaminophen (Tylenol) tablet 1,000 mg 1,000 [...] 28 (L) >=60 mL/min/1.73 m?? Vidhya Peñaloza #[id number] Associated attestation - Jareth Nino MD - [...] OT: 4 Patient Dx: Per note: Alix oHlland is a 31 y.o. male with HTN, [...] LUE ?? Social History: Patient lives in [place], [place] with his dad. Home Setup: [address], 2 level home, bedroom on 1st level, bathroom available on 1st level, has a tub shower downstairs. DME: none Baseline ADL/Mobility: Pt reports he was independent w/ ADL's and IADL's, had worked for a [employer]. He enjoys hunting and fishing. He reports he likes [employer] music ?? Interval History: - No acute [...] gave pt built up utensils for better caterer's aide on utensils due to limited LUE strength [...] Occupational Therapy: 32 (1 SC 1 TAF ([phone])) Pager: [phone] Natalia Fong OT Occupational Therapy Rehabilitation Department *POC reviewed between FISHING TACKLE REPAIRER/OTR. Patient is now activity as tolerated with BUE/LE WBAT. See updated goals below. Dai Gerald OTR/L Pager [phone] Goals updated & extended to 03/08/22: -Patient [...] BID Kaitlyn Rock MD 10 mg at 02/23/22931 ??? ascorbic acid (Vitamin C) (Vitamin C) tablet 250 mg 250 mg Oral Daily Kaitlyn Rock MD 250 mg at 02/23/22934 ??? miconazole nitrate (Remedy Phytoplex) 2 % ointment Topical (Top) BID Kaitlyn Rock MD Given at 02/23/22 0900 ??? vitamin B Complex-vitamin C-folic Acid (Eileen-scott) 0.8 mg per tablet 1 tablet 1 tablet Oral Daily Kaitlyn Rock MD 1 tablet at 02/23/22934 ??? vancomycin (Vancocin) capsule 125 mg 125 mg Oral BID Nancy Chahal MD 125 mg at 02/23/22931 ??? lactulose (Chronulac) (0.67 gram/mL) oral liquid 20 g 20 g Oral BID PRN Kaitlyn Rock MD ??? alteplase (Cathflo) injection 1-4 mg 1-4 mL INTRA-CATHETER Once in dialysis PRN Kaitlyn Rock MD 2.4 mg at 02/07/22 0520 ??? folic acid (Folvite) tablet 1,000 mcg 1,000 mcg Oral Daily Kaitlyn Rock MD 1,000 mcg at 02/23/22931 ??? thiamine (Vitamin B1) tablet 100 mg 100 mg Oral Daily Kaitlyn Rock MD 100 mg at 02/23/22931 ??? acetaminophen (Tylenol) tablet 1,000 mg 1,000 mg Oral Q8H [place] Kaitlyn Rock MD 1,000 mg at 02/23/22 1404 [...] he needs further renal replacement therapy. Charlotte Castañeda RD - 02/23/2022 2:39 PM EDT Nutrition Progress [...] and left superior gluteal artery via R MARINE EQUIPMENT DESIGN ENGINEER access. Reason for intervention: Follow up Nutrition [...] 02/05/2022 TRIG 359 01/26/2022 CRP <3.0 04/26/2021 [id number] 535 02/03/2022 SFOLATE 3.9 (L) 02/03/2022 IRON [...] encounter: 104.3 kg (229 lb 15 oz). [place] Body Weight: 80.9kg- [place] Usual Body Weight: [...] Based on IBW 80.9kg Estimated needs: Calories: 1338-3295 (25-30kcal/kg) Protein: 120 grams (1.5 g/kg UBW) [...] inthe setting of acute illness or injury (Keven adams al, BUSTER J Parenteral Enteral Nutr. 2011; 36(3): 273-83) Nutrition to continue to follow up while inpatient Thank you, Charlotte Castañeda RD Pager #:[phone] Jaswinder Chung PTA - 02/23/2022 11:00 AM EDT Physical Therapy [...] thigh, calf forearm and wrist (01/23) and??I+D SHAMRA ROBB (01/26). Previously completed treatment??for aspiration pneumonia [...] IADLs, drives, used to work for a [employer] company but is not currently working. Enjoys [...] x 3 JASWINDER CHUNG PTA 02/23/2022 Pager: [phone] Physical Therapy Inpatient Rehabilitation Department Sixto Medina [...] 5.1* 4.9 CL 102 101 101 CO2 24 BUN 59* 55* 46* CREATININE 3.90* 3.91* [...] MS4 02/24/2022 Acute Care Surgery Team pager [phone] A medical student assisted me in the [...] NEURO: AOx3, follows commands Labs: Recent Labs 02/22/22 0108 02/21/22 0338 02/20/22 0445 WBC 8.9 8.9 9.7* HGB 7.3* 6.9* 7.2* HCT 22.7* 21.4* 22.2* PLATELET 317 273 312 Recent Labs 02/22/22 01002/21/22 0338 02/20/22 0445 NA 137 136 136 [...] MD 02/22/2022 Acute Care Surgery Team pager [phone] Attending Addendum I have seen and examined [...] Melissa Gonzales MD Acute Care Surgery Pager [phone] Kevon Brian MD - 02/22/2022 10:29 AM [...] 22.2* PLATELET 317 273 312 Recent Labs 02/22/2210702/21/2233702/20/225 NA 137 136 136 K 5.1* 4.9 [...] Pulse (!) 124 Comment: w/activity, eating. Notified . Temp 37 ??C (98.6 ??F) (Oral) Resp [...] MD 02/21/2022 Acute Care Surgery Team pager [phone] Associated attestation - Gela Novak MD - [...] Cardiopulmonary Resuscitation - Inpatient Alonzo Oakley, MS4 02/20/2022 Acute Care Surgery Team pager [phone] A medical student assisted me in the [...] (Top), BID, Kaitlyn Rock MD, Given at 02/19/222148 ??? vitamin [...] Melissa Gonzales MD Acute Care Surgery Pager [phone] Melissa Gonzales MD - 02/19/2022 2:52 PM [...] MD 02/19/2022 Acute Care Surgery Team pager [phone] Associated attestation - Gela Novak MD - [...] mL) subcutaneous injection 5,000 Units 5,000 Units [id number] [facility] Collette Dye MD 5,000 Units at [...] tablet 1,000 mg 1,000 mg Oral Q8H [facility] Collette Dye MD 1,000 mg at [...] /HPF Stippled RBCs Present >1/HPF Vidhya Peñaloza #[id number] Dai Duarte, OT - 02/18/2022 2:48 PM [...] LUE ?? Social History: Patient lives in [place], [place] with his dad. Home Setup: [address], 2 level home, bedroom on 1st level, bathroom available on 1st level, has a tub shower downstairs. DME: none Baseline ADL/Mobility: Pt reports he was independent w/ ADL's and IADL's, had worked for a [employer]. He enjoys hunting and fishing. He reports he likes country music ?? Interval History: (Per MD note): NAEO Precautions/Special Considerations: SOAP/WATER; At risk to fall, flexiseal, L UE and L LE NWB; L forearm wound vac; COUNTER WAITER; Femoral A-line S: Ill try it I [...] Total Minutes, Occupational Therapy: 60 (tef [phone]) Pager: [phone] AMA QURESHI, PEG Occupational Therapy Rehabilitation Department *POC reviewed between PEG/OTR. Patient is now activity as tolerated with BUE/LE WBAT. See updated goals below. Dai Duarte OTR/L Pager [phone] Goals updated & extended to 03/08/22: -Patient [...] MD 02/18/2022 Acute Care Surgery Team pager [phone] Associated attestation - Gela Novak MD - [...] mL) subcutaneous injection 5,000 Units 5,000 Units [id number] Collette Zacarias MD 5,000 Units at 02/17/22 [...] Stain Moderate Neutrophils No microorganisms seen. Vidhya Kaur #[phone] Associated attestation - Bambi Pressley MD [...] (such as coca cola and gold fish). Avelino met with RD. I encouraged patient to [...] PLATELET [phone] Recent Labs 02/17/22 0340 02/16/22 0405 02/15/22 0350 NA 130* 128* 126* [...] MD 02/17/2022 Acute Care Surgery Team pager [phone] Associated attestation - Gela Novak MD - [...] Melissa Gonzales MD Acute Care Surgery Pager [phone] Tasha Matthews OTA - 02/17/2022 8:00 AM [...] better. However, at this time, he needs SALES AND MANAGEMENT TRAINEE. - Hemodynamically stable. PHYSICAL EXAM: Last value [...] Melissa Gonzales MD 15 mg at 02/16/22 1810 Or ??? oxyCODONE (Roxicodone) tablet 10 mg [...] Daily Collette Dye MD 1 tablet at 02/16/2229 ??? heparin (porcine) (5,000 units/1 mL) subcutaneous injection 5,000 Units 5,000 Units [id number] Collette Zacarias MD 5,000 Units at 02/16/22 1315 ??? vancomycin (Vancocin) capsule 125 mg 125 mg Oral BID Collette Dye MD 125 mg at 02/16/2230 ??? lactulose (Chronulac) (0.67 gram/mL) oral liquid [...] Daily Collette Dye MD 1,000 mcg at 02/16/22829 ??? thiamine (Vitamin B1) tablet 100 mg 100 mg Oral Daily Collette Dye MD 100 mg at 02/16/2230 ??? acetaminophen (Tylenol) tablet 1,000 mg 1,000 [...] (H) 0.00 - 0.04 x10(3)/mcL Vidhya Peñaloza #[phone] Associated attestation - Bambi Pressley MD - [...] MD 02/16/2022 Acute Care Surgery Team pager [phone] Associated attestation - Gela Novak MD - [...] the Flexi-Seal tube The intraoperative cultures of 7/18 grew Serratia and Pseudomonas Subjective: States that [...] and left superior gluteal artery via R MARINE EQUIPMENT DESIGN ENGINEER access. Reason for intervention: Follow up Nutrition [...] 02/05/2022 TRIG 359 01/26/2022 CRP <3.0 04/26/2021 [id number] 535 02/03/2022 SFOLATE 3.9 (L) 02/03/2022 IRON [...] encounter: 104.3 kg (229 lb 15 oz). [place] Body Weight: 80.9kg- [place] Usual Body Weight: [...] Based on IBW 80.9kg Estimated needs: Calories: 7891-7365 (25-30kcal/kg) Protein: 120 grams (1.5 g/kg UBW) [...] up while inpatient KAYLAH JANG RD Pager #:[phone] Vidhya Peñaloza MD - 02/15/2022 6:47 PM [...] with PMHx drug abuse, initially admitted to [facility] after he had cardiac arrest sec to [...] mL) subcutaneous injection 5,000 Units 5,000 Units BgixlewsnsadV7S [place] Veto Hidalgo MD 5,000 Units at 02/15/22 [...] (A) Organism Gram Negative Rods (A) Vidhya Kaur #[phone] Associated attestation - Bambi Pressley MD - [...] Acute Care Surgery Post-Operative Progress Note Alix Melita Ochoa 02/15/2022 Surgery/Issue: Procedure(s): DEBRIDEMENT SKIN AND SUBCU, [...] Melissa Gonzales MD Acute Care Surgery Pager [phone] Melissa Gonzales MD - 02/15/2022 1:46 PM [...] MD 02/15/2022 Acute Care Surgery Team pager [phone] Associated attestation - Gela Novak MD - [...] in PACU. 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 Ama Tucker RN - 02/15/2022 4:50 AM [...] EDT Hypertension/Nephrology Staff Inpatient Follow-up Alix Holland [id number] 1990 ID: 31 y.o. old male seen [...] MD 02/14/2022 Acute Care Surgery Team pager [phone] Jairo Kirkland MD - 02/13/2022 4:06 PM [...] regular diet, denies N/V. Per MD Hidalgo, ok for 2L FR today as 1L IVF [...] In: 1999 [P.O.:1350; Blood:350; IV Piggyback:300] Out: 4836 [Other:4836] I/O this shift: In: 1400 [P.O.:500; [...] AM EDT Hypertension/Nephrology Staff Inpatient Follow-up Alix Crookswell [id number] 1990 ID: 31 y.o. old male seen [...] Estimate Normal RBC Morphology Abnormal Hypochromia [place] Cells 1-5 /HPF Stippled RBCs Present >1/HPF Toxic Granulation Present A/P: 1. Renal: persistent anuric ALTHEA post rhabdo. Hyponatremia persists but chemistries otherwise stable. - no indication for SALES AND MANAGEMENT TRAINEE today - 1.5L/d fluid restriction - avoid [...] room. Report given to ÁNGEL Howe on 4 Gina Montaño MD - 02/13/2022 7:20 AM [...] MD 02/13/2022 Acute Care Surgery Team pager [phone] Vidhya Peñaloza MD - 02/12/2022 8:33 PM [...] BID Gina Montaño MD 15 mg at 02/12/22 2018 ??? HYDROmorphone (Dilaudid) (0.5 mg/0.5 mL) injection syringe 0.6 mg 0.6 mg Intravenous Q4H PRN Gina Montaño MD 0.6 mg at 02/12/22 1758 ??? ceFEPime (Maxipime) 2g vial attach to sodium chloride 0.9% 100 mL Mini-Bag Plus 2 g 2 g Intravenous Q8H Gina Montaño MD 33.3 mL/hr at 02/12/222016 2 g at 02/12/22 2017 ??? heparin (porcine) (5,000 units/1 mL) subcutaneous injection 5,000 Units 5,000 Units VstkntplpggdK6V [facility] Kaitlyn Rock MD 5,000 Units at 02/12/22 [...] 128 (L) 135 - 145 mmol/L Vidhya Kaur #[phone] Associated attestation - Cecilio Gee MD [...] and tolerated well. Continue fluid restriction. Sg Parra RN - 02/12/2022 6:31 PM EDT OUTCOME [...] next week. Meghan Prabhakar, PT DPT Pager #[phone] 02/12/2022 Physical Therapy Rehabilitation Department Parrish Betancourt [...] MD 02/12/2022 Acute Care Surgery Team pager [phone] SURGICAL ATTENDING NOTE: Pt seen and examined [...] mL) subcutaneous injection 5,000 Units 5,000 Units [id number] [facility] Kaitlyn Rock MD 5,000 Units at [...] tablet 1,000 mg 1,000 mg Oral Q8H [facility] Kaitlyn Rock MD 1,000 mg at 02/11/222118 Recent Results (from the past 18 hour(s)) Sodium Collection Time: 02/11/22 8:20 AM Result Value Ref Range Sodium 127 (L) 135 - 145 mmol/L Sodium Collection Time: 02/11/22 4:09 PM Result Value Ref Range Sodium 129 (L) 135 - 145 mmol/L Vidhya Anabela #[phone] Associated attestation - Cecilio Gee MD - [...] 6120 [P.O.:4850; I.V.:1009; Other:45; IV Piggyback:216] Out: 98070 [Other:82332; Stool:200] I/O this shift: In: 600 [P.O.:300; [...] Montaño MD Acute Care Surgery Team Pager [phone] 02/11/22 Sg Parra RN - 02/11/2022 2:36 PM EDT OUTCOME EVALUATION NOTE: ?? OUTCOME SUMMARY: Pt alert and oriented x4. On room air, no SOB and dyspnea. 8/10 general pain, relief with COUNTER WAITER dilaudid and PRN oral oxycodone. Wound vac [...] MD 02/11/2022 Acute Care Surgery Team pager [phone] Tamika Burk, RN - 02/11/2022 11:41 AM EDT Pt to PACU via bed from OR; monitors applied, alarms set and audible. Woke up well from Anesthesia; comfortable initially, then c/o LLE killing me. Pt given COUNTER WAITER, which he used independently. Given additional IV [...] and left superior gluteal artery via R MARINE EQUIPMENT DESIGN ENGINEER access. Interval hx: Pt continues NPO for [...] discuss plan with provider Kaylie Montaño MD #[id number]. Active Orders Diet Regular diet Frequency: Effective [...] 02/05/2022 TRIG 359 01/26/2022 CRP <3.0 04/26/2021 [id number] 535 02/03/2022 SFOLATE 3.9 (L) 02/03/2022 IRON [...] encounter: 104.3 kg (229 lb 15 oz). [place] Body Weight: 80.9kg- [place] Usual Body Weight: [...] Based on IBW 80.9kg Estimated needs: Calories: 2109-8849 (25-30kcal/kg) Protein: 200+ grams (2.5 g/kg) - [...] inthe setting of acute illness or injury (Keven et al, JPEN J Parenteral Enteral Nutr. 2011; 36(3): 273-83) Nutrition to continue to follow up while inpatient KAYLAH JANG RD Pager #:[phone] Tanesha Patel RN - 02/11/2022 6:00 AM EDT OUTCOME EVALUATION NOTE: ?? OUTCOME SUMMARY: Pt AOx4. Had COUNTER WAITER Dilaudid, IV Dilaudid and PO oxycodone for pain. Dressings had been CDI. Wound vac in situ. NPO at RI for surgery today. Awaiting MRI schedule. For [...] pain 7-10/10 despite PRN oxy and dilaudid marketing research coordinator, team aware. Q shift N/V checks, pulses dopplerable. Provider notified pt would need to disconnect from wound vacs for MRI, communication placed, ok to disconnect. NPO at midnight for washout of wounds. PLAN MOVING FORWARD: NPO at midnight for washout IHD MWF Q8 sodium levels COUNTER WAITER for pain Free water restriction 1L Vidhya Peñaloza MD - 02/10/2022 1:47 PM EDT NEPHROLOGY PROGRESS NOTE PATIENT: Alix Holland : 1990 Interval History: Patient seen and examined at bedside. On HD when seen. Tolerated HD well. I/O last 3 completed shifts: In: 6279 [P.O.:2030; I.V.:3362; Blood:350; Other:30; IV Piggyback:507] Out: 40090 [Other:79293; Stool:1025; Blood:20] I/O this shift: In: 2473 [...] mL) subcutaneous injection 5,000 Units 5,000 Units ItufpvyxnyarS1E [place] Jeanette Escamilla APRN 5,000 Units at [...] mg/mL) in sodium chloride 0.9% 50 mL COUNTER WAITER infusion Intravenous COUNTER WAITER Only Jeanette Escamilla APRN 1 mL/hr at [...] Q1 Min PRN Jeanette Escamilla APRN ??? COUNTER WAITER [place] Intravenous Continuous PRN Jeanette Escamilla APRN ??? HYDROmorphone (mg) COUNTER WAITER shift total and Settings verification Intravenous 2 Times Daily- COUNTER WAITER Shift Total Jeanette Escamilla APRN ??? dronabinoL [...] 100 mg 100 mg Oral Daily Jeanette Escaimlla APRN 100 mg at 02/10/22 0849 ??? [...] (L) 135 - 145 mmol/L Vidhya Peñaloza #[id number] Associated attestation - Cecilio Gee MD - [...] was initially admitted to MICU 01/23 at [facility] after he was found down following [...] 02/10 0700 In: 4038 [P.O.:1250; I.V.:2350] Out: 87633 Physical Exam: General: no distress, awake in [...] pressors.Pain better controlled with PO medications and COUNTER WAITER. Nephrology is amenable to iHD in place of [facility]. ID following regarding C. diff treatment. PLAN: Neuro:?Toxic metabolic encephalopathy, bilateral globus pallidum infarcts, hx polysubstance abusewith difficult to control pain - Pain control: acetaminophen, Dilaudid COUNTER WAITER, oxycodone PRN, Dilaudid breakthrough - Marinol 10mg [...] MD, PGY2 Acute Care Surgery Team pager [phone] Jose Hernandez MD - 02/10/2022 12:47 PM [...] mg/mL) in sodium chloride 0.9% 50 mL COUNTER WAITER infusion ??? diphenhydrAMINE (Benadryl) (50 mg/mL) injection 25 mg ??? prochlorperazine (Compazine) (5 mg/mL) injection 5 mg ??? ondansetron (pf) (Zofran) (2 mg/mL) injection 4 mg ??? naloxone (Narcan) (0.4 mg/mL) injection 0.2 mg ??? COUNTER WAITER hutton ??? HYDROmorphone (mg) COUNTER WAITER shift total and Settings verification ??? dronabinoL (Marinol) capsule 10 mg ??? senna-docusate (Pericolace) 8.6-50 mg per tablet 2 tablet ??? folic acid (Folvite) tablet 1,000 mcg ??? thiamine (Vitamin B1) tablet 100 mg ??? acetaminophen (Tylenol) tablet 1,000 mg ??? HYDROmorphone 50 mg (02/07/22 1534) OBJECTIVE: Temp: [36.4 ??C (97.5 ??F)-37.4 ??C (99.4 ??F)] Heart Rate: [99-120] Resp: [12-26] BP: (120-124)/(69-74) Intake/Output Summary (Last 24 hours) at 02/10/2022 1247 Last data filed at 02/10/2022 1148 Gross per 24 hour Intake 4838 ml Output 77747 ml Net -9966 ml Body mass index [...] any changes, questions, or concerns please page [phone]. Activity: NWB LUE, NWB LLE DVT prophylaxis: [...] EDT Hypertension/Nephrology Staff Inpatient Follow-up Alix Holland [id number] 1990 ID: 31 y.o. old male seen [...] the MICU 01/23 s/p [place] arrest at [facility] in the setting ofbeing down for [...] control pain - pain control: acetaminophen, D. COUNTER WAITER - PRN Dilaudid for breakthrough pain, start [...] debride ment.?? Social History: Patient lives in [place], [place] with his dad. Home Setup: [address] [facility], 2 level home, bedroom on 1st level, bathroom available on 1st level, has a tub shower downstairs. DME: none Baseline ADL/Mobility: Pt reports he was independent w/ ADL's and IADL's, had worked for a [employer]. He enjoys hunting and fishing. He reports he likes country music ?? Precautions/Special Considerations: SOAP/WATER; At risk to fall, flexiseal, L UE and L LE NWB; L forearm wound vac; NPO, Bedrest; COUNTER WAITER; Femoral A-line S: My leg really hurts [...] to participate ?? Alert and oriented to: [facility], January,. When asked the day of the [...] See PT note Pain: 8/10 to LLE; COUNTER WAITER in place Education: Pt/family/caregiver education ongoing regarding: [...] Total Minutes, Occupational Therapy: 34 (10:34-11:08) Pager: [phone] DAI DUARTE OT Occupational Therapy Rehabilitation Department [...] IADLs, drives, used to work for a [employer] company but is not currently working. Enjoys [...] (PT): 2-4 times/wk Time IN / OUT: 6876-0145 Total Minutes, Physical Therapy: 31 (TEFx2). Meghan Prabhakar PT DPT 02/09/2022 Pager: [phone] Physical Therapy Inpatient Rehabilitation Department Carlo Jackson [...] and left superior gluteal artery via R MARINE EQUIPMENT DESIGN ENGINEER access. Interval hx: Pt continues NPO for OR today. Team hopeful to advance diet after OR. Reason for intervention: Malnutrition evaluation and TPN Nutrition Recommendations: ADAT and encourage good intake. Pt with high protein needs- please encourage intake of eggs, nuts, meats, scottish yogurt, fish, and Ensure Enlive. Please order [...] 02/05/2022 TRIG 359 01/26/2022 CRP <3.0 04/26/2021 [id number] 535 02/03/2022 SFOLATE 3.9 (L) 02/03/2022 IRON [...] encounter: 111.7 kg (246 lb 4.1 oz). [place] Body Weight: 80.9kg- [place] Usual Body Weight: [...] Based on IBW 80.9kg Estimated needs: Calories: 3186-0557 (25-30kcal/kg) Protein: 200+ grams (2.5 g/kg) - [...] up while inpatient Carlo Jackson RD Pager #:[phone] T Collette Dye MD - 02/09/2022 9:03 AM [...] was initially admitted to MICU 01/23 at [facility] after he was found down following [...] 0701 - 02/09 0700 In: 3859 [P.O.:1220; I.V.:0] Out: 5953.5 Physical Exam: General: no distress, [...] no focal deficits Labs: Recent Labs 02/09/22 00502/08/22 1800 02/08/22 0100 02/07/22 18002/07/22 1300 02/07/22 0605 02/07/22 0210 02/06/22231002/06/22221902/06/22194402/06/22 1633 WBC 12.6* 12.1* 18.6* 18.0* 20.2* [...] 02/08/22 1800 02/08/22 1200 02/08/22 0557 02/07/22 18002/07/22 1300 02/07/22 0605 02/07/22 0047 02/06/22231002/06/22194409/22 1620 NA 130* 126* 129* 127* 126* [...] diff screen (02/01): Positive Abscess/Wound Aspirate Culture [[id number]] (Abnormal) Collected: 02/08/221612 Lab Status: Preliminary result Specimen: Deep Wound from Thigh, Left Updated: 02/08/221717 Gram Stain --??Abnormal?? Many Neutrophils seen Moderate Gram Negative Rods seen ??Abnormal?? Abscess/Wound Aspirate Culture [[id number]] (Abnormal) Collected: 02/08/221612 Lab Status: Preliminary result [...] any questions regarding this consult, please page [phone] if you have any further questions. [X] Consult service to continue to follow [] Consult service to sign off Collette Dye MD, PGY2 Acute Care Surgery Team pager [phone] Bam Bahena - 02/09/2022 7:35 AM EDT [...] to the MICU 01/23??s/p [place] arrest at [facility] in the setting of being down [...] Neurology - Pain control: ?? acetaminophen, D. COUNTER WAITER ?? PRN Dilaudid for breakthrough pain ?? [...] Plastic Surgery Inpatient Progress Note (Team Pager #[phone]) Date of surgery: N/A CC/Procedure(s): N/A Surgeon: [...] Reynoso MD Plastic Surgery Inpatient Team Pager #[phone] Jesús Mcgowan PA - 02/09/2022 6:06 AM [...] of Left superior gluteal artery via R MARINE EQUIPMENT DESIGN ENGINEER access. Last Value 24 Hour Range Temperature 37.5 ??C (99.5 ??F) Temp: [36.2 ??C (97.2 ??F)-37.9 ??C (100.2 ??F)] Heart Rate (!) 115 Heart Rate: [85-138] Blood Pressure 142/75 BP: -- Respiratory Rate 26 Resp: [12-29] SpO2 100 % SpO2: [96 %-100 %] Physical Exam GEN No distress, A&O CARDS Acyanotic, Right MARINE EQUIPMENT DESIGN ENGINEER without hematoma/induration, right DP 2+ LUNGS Non-labored [...] /HPF Polychromasia Present >5/HPF Ovalocytes 1-5 /HPF [place] Cells 1-5 /HPF Stippled RBCs Present >1/HPF [...] Abnormal Polychromasia Present >5/HPF Ovalocytes 1-5 /HPF [place] Cells 1-5 /HPF Stippled RBCs Present >1/HPF [...] Value Ref Range T&S only valid at [facility] Hosp Assessment: 31 y.o. male with history [...] and left superior gluteal artery via R MARINE EQUIPMENT DESIGN ENGINEER access. Last transfusion of 1 unit PRBC [...] updated and patient is medically appropriate. Pager: [phone] Amberly Hardy OT 02/08/2022 Occupational Therapy Rehabilitation [...] g 17 g Oral BID Rogers Solano, AGRICULTURAL EXTENSION OFFICER ??? heparin (porcine) (5,000 units/1 mL) subcutaneous injection 7,500 Units 7,500 Units YsfrlokodfmxZ1R [place] Rogers Solano, AGRICULTURAL EXTENSION OFFICER ??? alteplase (Cathflo) injection 1-4 mg 1-4 mL INTRA-CATHETER Once in dialysis PRN Collette Rivas PA 2.4 mg at 02/07/22 0520 ??? heparin (porcine) (1,000 units/mL) injection 1,000-10,000 Units 1,000-10,000 Units WwgqikbheisllG2Q PRN Angelina Reynoso MD ??? bicarbonate CRRT [...] 0.2 mg Intravenous Q2H PRN Rogers Solano, AGRICULTURAL EXTENSION OFFICER ??? HYDROmorphone (Dilaudid) (1 mg/mL) in sodium chloride 0.9% 50 mL COUNTER WAITER infusion Intravenous COUNTER WAITER Only Rogers Solano, AGRICULTURAL EXTENSION OFFICER 1 mL/hr at 02/07/22 1534 50 mg [...] Q1 Min PRN Danielle Ramirez MD ??? COUNTER WAITER hutton Intravenous Continuous PRN Danielle Ramirez MD ??? HYDROmorphone (mg) COUNTER WAITER shift total and Settings verification Intravenous 2 Times Daily- COUNTER WAITER Shift Total Danielle Ramirez MD ??? vancomycin (Vancocin) capsule 125 mg 125 mg Oral 4 Times Daily Danielle Ramirez MD 125 mg at02/08/22 1312 ??? dronabinoL (Marinol) capsule 10 mg 10 mg Oral BID Danielle Ramirez MD 10 mg at 02/08/22 0835 ??? senna-docusate (Pericolace) 8.6-50 mg per tablet 2 tablet 2 tablet Oral BID Dnaielle Ramirez MD 2 tablet at 02/08/22 0835 [...] bolus injection (Anesthesia) Intravenous PRN Anthony Turner CRNA 10 mg at 02/06/22 1420 ??? lactated ringers infusion Intravenous Continuous PRN Anthony Turner CRNA New Bag at 02/06/22 1239 ??? PHENYLephrine (Rustam-Synephrine) (80 mcg/mL) in sodium chloride 0.9% 250 mL infusion Intravenous Continuous PRN Anthony Turner CRNA 15 mL/hr at 02/06/22 1433 20 mcg/min at 02/06/22 1433 ??? HYDROmorphone (Dilaudid) (2 mg/mL) multi-dose injection solution Intravenous PRN Anthony Turner PANEL FLOW MACHINE OPERATOR 1 mg at 02/06/22 1439 Recent Results [...] Calcium Ionized Whole Blood, HONORIO Collection Time: 02/08/22 11:00 AM Result Value [...] 126 65 - 199 mg/dL Vidhya Peñaloza #[phone] Associated attestation - Cecilio Gee MD - [...] the MICU 01/23 s/p [place] arrest at [facility] in the setting ofbeing down for [...] control pain - pain control: acetaminophen, D. COUNTER WAITER - PRN Dilaudid for breakthrough pain - [...] Specialist in Neurologic Physical Therapy Inpatient/outpatient Rehab [facility] Parrish Betancourt MD - 02/08/2022 8:39 AM [...] was initially admitted to MICU 01/23 at [facility] after he was found down following [...] 02/07/22 0210 02/06/22 2311 02/06/22 2220 02/06/22 19402/06/22 1633 02/06/22 1620 WBC 18.6* 18.0* 20.2* [...] any questions regarding this consult, please page [phone] if you have any further questions. [X] Consult service to continue to follow [] Consult service to sign off Collette Dye MD, PGY2 Acute Care Surgery Team pager [phone] SURGICAL ATTENDING NOTE: Pt seen and examined [...] Vinod Prasad PA-C Interventional Radiology IR Provider #[id number] Bam Bahena - 02/08/2022 7:31 AM EDT ICU Progress [...] to the MICU 01/23??s/p [place] arrest at [facility] in the setting of being down [...] HD line rewired after TPA failed. Increased COUNTER WAITER then went down on it. 2 units [...] difficult to control pain - Acetaminophen, D. COUNTER WAITER - PRN Dilaudid for breakthrough pain - [...] CODE STATUS: Attempt Cardiopulmonary Resuscitation - Inpatient JEFFERY Goodrich 02/08/2022 David Pagan MD - 02/08/2022 5:38 [...] mg/mL) in sodium chloride 0.9% 50 mL COUNTER WAITER infusion ??? heparin (porcine) (1,000 units/mL) injection [...] (Narcan) (0.4 mg/mL) injection 0.2 mg ??? COUNTER WAITER hutton ??? HYDROmorphone (mg) COUNTER WAITER shift total and Settings verification ??? vancomycin [...] at this time. He is using his COUNTER WAITER as demonstrated. Natalya Amador RN - 02/07/2022 6:48 PM EDT OUTCOME EVALUATION NOTE: OUTCOME SUMMARY: Pt stated increased pain this am, and received Dilaudid 0.2 mg for BTP, and increase on COUNTER WAITER, statingpain 05/10 to the left hip. With the one IV dose of Dilaudid and increase pt stated better pain, andwas unable to verbalize a number, staring out into space or closing eyes during a conversation,. Pt's COUNTER WAITER was then decreased and during the decrease [...] mg/mL) in sodium chloride 0.9% 50 mL COUNTER WAITER infusion ??? heparin (porcine) (1,000 units/mL) injection [...] (Narcan) (0.4 mg/mL) injection 0.2 mg ??? COUNTER WAITER hutton ??? HYDROmorphone (mg) COUNTER WAITER shift total and Settings verification ??? vancomycin [...] (02/06/22 1153) ??? dextrose 5% Stopped (02/07/22 5959) OBJECTIVE: Temp: [36.3 ??C (97.3 ??F)-37.3 ??C [...] was initially admitted to MICU 01/23 at [facility] after he was found down following [...] any questions regarding this consult, please page [phone] if you have any further questions. [X] Consult service to continue to follow [] Consult service to sign off Kaitlyn Rock MD, PGY2 Acute Care Surgery Team pager [phone] Garret Jeter, - 02/07/2022 10:10 AM EDT [...] bowel tones EXT Minimal oozing around R MARINE EQUIPMENT DESIGN ENGINEER puncture site dressing, no hematoma. Distal pulses [...] any questions or concerns. Garret Jeter DO [facility] Interventional Radiology Jayme Armstrong MD - 02/07/2022 [...] the MICU 01/23 s/p [place] arrest at [facility] in the setting ofbeing down for [...] control pain - pain control: acetaminophen, D. COUNTER WAITER - PRN Dilaudid for breakthrough pain - [...] 0603 femoral artery, right 20 gauge 02/06/22 06 -- 1 Disp: admit to ICU, Critical [...] 10/10 through most of the night, dilaudid COUNTER WAITER continues with PRN pushes for break through [...] dressing change, manage bleeding L thigh fasciotomy [id number], medicated with Hydromorphone 1 mg by Jeanette [...] the MICU 01/23 s/p [place] arrest at [facility] in the setting ofbeing down for [...] this interval not displayed. INR Recent Labs 02/06/2293402/06/2216 02/06/22 0050 02/05/22 2035 01/31/22 0805 01/30/222016 [...] control pain - pain control: acetaminophen, D. COUNTER WAITER ?? 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 Jayme Armstrong MD Jeanette Escamilla, AGRICULTURAL EXTENSION OFFICER - 02/06/2022 10:40 AM EDT ICU Transfer [...] down-time, complaining of LUE pain. On-route to [facility] via EMS had a Vtach arrest. On arrival to OSH he was noted to have potassium of 7.8. He received multiple doses of sodium bicarb, calcium gluconate, and insulin/D10 and his potassium improved to 5.4 prior to transport. On arrival to [facility] K was again elevated at 7.6 with [...] Found to be COVID-positive. After arrival to [facility] pt was able to be weaned to minimal oxygenation support and CT chest was clear apart from partial collapse of LLL and dependent atelectasis. COVID therapies such as decadron were held due to preserved oxygenation. He did remain intubated through 01/26, not because of hypoxia, but to facilitate return OR trips and during a time of hemodynamic instability. ?? ALTHEA requiring SALES AND MANAGEMENT TRAINEE: Given his multisystem organ failure and significant [...] 01/30. He was transitioned to a hydromorphone COUNTER WAITER on 02/01. ?? C Difficile infection: Persistent [...] Neurology - Pain control: ?? acetaminophen, D. COUNTER WAITER ?? PRN Dilaudid for breakthrough pain ?? [...] of his gluteus. 1 square dressing of [place] was placed at this aspect. 3 square [...] support at this time. Halle Holloway MD Emely Duniabrannon Gaines DO - 02/06/2022 7:30 AM EDT Critical [...] and set appropriately. Frequent visual assessments Surveillance: [place] [facility] Patient-specific fall prevention interventions [...] mg/mL) in sodium chloride 0.9% 50 mL COUNTER WAITER infusion ??? HYDROmorphone (Dilaudid) (1 mg/mL) injection syringe 1 mg ??? sevelamer carbonate (Renvela) tablet 1,600 mg ??? diphenhydrAMINE (Benadryl) (50 mg/mL) injection 25 mg ??? prochlorperazine (Compazine) (5 mg/mL) injection 5 mg ??? ondansetron (pf) (Zofran) (2 mg/mL) injection 4 mg ??? naloxone (Narcan) (0.4 mg/mL) injection 0.2 mg ??? COUNTER WAITER hutton ??? HYDROmorphone (mg) COUNTER WAITER shift total and Settings verification ??? vancomycin [...] EDT NEPHROLOGY PROGRESS NOTE Reason for consult: ALTHEA/SALES AND MANAGEMENT TRAINEE Baseline creatinine: ~0.7 (as of 04/2021) Interval [...] tissue necrosis. Dania Thomas MD Nephrology Pager: [phone] Summer Robertson RN - 02/05/2022 3:35 PM [...] or concerns. Lilibeth Medina, PT, DPT Pager: [phone] 02/05/22 Inpatient Rehabilitation Department Amberly Hardy OT [...] evaluation as able and when appropriate. Pager: [phone] Amberly Hardy OT 02/05/2022 Occupational Therapy Rehabilitation [...] bridge Communicated nutrition recs to Medicine pager #[phone] Visualized patient for overt cachectic appearance: no [...] d/t fluid status Charlotte Castañeda RD Pager: [phone] Dilcia Lopez MD - 02/05/2022 9:56 AM [...] the past 24 hour(s)) GC Gene Amp ([facility]/CGP/APD/NL) Urine Specimen: Urine Result Value Ref Range GC Gene Amp Negative Negative GC Source Urine Chlamydia Gene Amp ([facility]/CGP/APD/NLH) Urine Specimen: Urine Result Value Ref Range [...] Value Ref Range T&S only valid at [facility] Hosp Prepare RBC Result Value Ref Range Dispensed? Yes Hemoglobin Result Value Ref Range Hemoglobin 7.0 (L) 13.7 - 16.5 g/dL Microbiology: Microbiology Results (Last 30 days) Procedure Component Value Units Date/Time GC Gene Amp ([facility]/CGP/APD/[facility]) Urine [[id number]] Collected: 02/04/221619 Lab Status: Final result Specimen: Urine Updated: 02/05/22641 GC Gene Amp Negative Comment: The only FDA approved specimen types for this assay are cervical, vaginal, urethral and urine. Non-FDA approved sources are eye, throat and rectal and have been internally validated. GC Source Urine Chlamydia Gene Amp ([facility]/P/APD/[facility]) Urine [[id number]] Collected: 02/04/221619 Lab Status: Final result Specimen: Urine Updated: 02/05/22641 Chlamydia Gene Amp Negative Comment: The only FDA approved specimen types for this assay are cervical, vaginal, urethral and urine. Non-FDA approved sources are eye, throat and rectal and have been internally validated. Chlamydia Source Urine C. Difficile Screen [[id number]] (Abnormal) Collected: 02/01/22 1355 Lab Status: Final [...] or approval by Infection Prevention. Blood culture [[id number]] Collected: 02/01/22 0635 Lab Status: Preliminary result Specimen: Blood Updated: 02/04/22 1502 Blood Culture No growth at 3 days. Blood culture [[id number]] Collected: 02/01/22 0625 Lab Status: Preliminary result Specimen: Blood Pediatric Updated: 02/04/22 1502 Blood Culture No growth at 3 days. Blood culture [[id number]] Collected: 01/28/22 0345 Lab Status: Final result Specimen: Blood Updated: 02/02/22 0701 Blood Culture No growth at 5 days. MRSA PCR [[id number]] Collected: 01/24/22 1310 Lab Status: Final result Specimen: Nasopharyngeal Swab Updated: 01/25/22 2224 MRSA Result Negative MRSA Interp -- Negative for methicillin-resistant Staphylococcus aureus (MRSA) This test was performed using the [employer] Dx System and the Xpert MRSA Assay. The MRSA target DNA was not detected. The sample processing control and probe check were valid. The performance of this test was determined by the [facility] Molecular Pathology Laboratory. It has been cleared by the U.S. Food and Drug Administration for clinical use. Comment: [VERIFIED DATE]01.25.22 Verified By:Alfonso Soto (Electronic Signature) MRSA PCR [[id number]] Collected: 01/23/22 1247 Lab Status: Final result Specimen: Nasopharyngeal Swab Updated: 01/25/22 1023 MRSA Result Negative MRSA Interp -- Negative for methicillin-resistant Staphylococcus aureus (MRSA) This test was performed using the [employer] Dx System and the Xpert MRSA Assay. The MRSA target DNA was not detected. The sample processing control and probe check were valid. The performance of this test was determined by the [facility] Molecular Pathology Laboratory. It has been cleared by the U.S. Food and Drug Administration for clinical use. Comment: [VERIFIED DATE]01.25.22 Verified By:Nora Shay (Electronic Signature) Lower Respiratory Culture Tracheal Aspirate [[id number]] (Abnormal) (Susceptibility) Collected: 01/23/22 1150 Lab Status: [...] Sensitive [1] Gentamicin is not appropriate for Wise-therapy. [2] Oxacillin (methicillin) susceptibility is a surrogate for the oral and parenteral cephalosporins, beta-lactam combination agents (amoxicillin-clavulanate, ampicillin-sulbactam and piperacillin-tazobactam) and carbapenem agents. It is NOT a surrogate for penicillin, ampicillin or piperacillin susceptibility. Linear View Blood culture [[id number]] Collected: 01/23/22 0600 Lab Status: Final result Specimen: Blood Updated: 01/28/22 0701 Blood Culture No growth at 5 days. Blood culture [[id number]] Collected: 01/23/22 0126 Lab Status: Final result Specimen: Blood Updated: 01/28/22 0701 Blood Culture No growth at 5 days. COVID-19 PCR [[id number]] (Abnormal) Collected: 01/23/22 0044 Lab Status: Final [...] diagnosis of COVID-19 is performed using the [employer] SARS-CoV-2 Assay as authorized by the FDA Emergency Use Authorization (EUA). This EUA assay is intended for In-vitro Diagnostic (IVD) use with respiratory specimens such as nasopharyngeal swabs collected from individuals during the acute phase of infection. This assay is performed based on the instructions for use provided by [employer] and additional guidance provided by CDC and FDA. Testing is performed in the [facility] within the Department of Pathology and Laboratory Medicine at [facility], certified under the Clinical Laboratory Improvement [...] fact sheets at the following FDA website: https://www.fda.gov/medical-devices/ymvntvuetyw-axyxcie-7048-vsdtk-12-zhmpplqkp- vmx-cdenhcnmauytli-igtwnvd-devices/ouzgj-ovqhiepqxqe-puyd SARS-Cov-2 RNA Source Trach Asp MRSA PCR [[id number]] Collected: 01/23/22 0044 Lab Status: Final result [...] of this test was determined by the [facility] Molecular Pathology Laboratory. It has been cleared [...] who have questions please contact the health manager wound care that requested your imaging first. Head wo Contrast (Generic) (Exam End: 01/23/2022 3:58 AM) Impression Globi pallidi infarcts. Mild cerebral edema. Thank you for letting us participate in the care of this patient. If you are a health care provider and have any questions regarding this report, please contact the number below. For patients who have questions please contact the health manager wound care that requested your imaging first. Electronically signed by: Rex Addison MD, [facility] ([phone]), at 01/23/2022 4:27 AM XR Abdomen 1 [...] who have questions please contact the health manager wound care that requested your imaging first. Electronically signed by: Jacky Mello MD, [facility] ([phone]), at 01/23/2022 8:[address] Lower Extremity [...] who have questions please contact the health manager wound care that requested your imaging first. Electronically signed by: Melita Mills MD, [facility] ([phone]), at 01/24/2022 1:[address] Chest wo [...] who have questions please contact the health manager wound care that requested your imaging first. Electronically signed by: Rex Addison MD, [facility] ([phone]), at 01/23/2022 4:[address] Upper Extremity [...] who have questions please contact the health manager wound care that requested your imaging first. Electronically signed by: Rex Addison MD, [facility] ([phone]), at 01/23/2022 4:58 AM XR Forearm Left [...] who have questions please contact the health manager wound care that requested your imaging first. Electronically signed by: Rex Addison MD, [facility] ([phone]), at 01/23/2022 7:14 AM XR Chest One [...] who have questions please contact the health manager wound care that requested your imaging first. Electronically signed by: Rex Addison MD, [facility] ([phone]), at 01/23/2022 6:56 AM XR Femur 2 views Left (Generic) (Exam End: 01/23/2022 2:04 PM) Impression No significant osseous finding. Thank you for letting us participate in the care of this patient. If you are a health care provider and have any questions regarding this report, please contact the number below. For patients who have questions please contact the health manager wound care that requested your imaging first. Electronically signed by: Lisandro Pruett MD, [facility] ([phone]), at 01/23/2022 2:10 PM XR Tibia Fibula Left (Generic) (Exam End: 01/23/2022 2:04 PM) Impression No bony abnormality seen. Thank you for letting us participate in the care of this patient. If you are a health care provider and have any questions regarding this report, please contact the number below. For patients who have questions please contact the health manager wound care that requested your imaging first. Electronically signed by: Jacky Mello MD, [facility] ([phone]), at 01/23/2022 2:07 PM XR Chest One [...] who have questions please contact the health manager wound care that requested your imaging first. Electronically signed by: Lisandro Pruett MD, [facility] ([phone]), at 01/23/2022 5:01 PM MRI Brain wo [...] who have questions please contact the health manager wound care that requested your imaging first. Electronically signed by: Bernadine Edward [facility] ([phone]), at 01/24/2022 4:[address] Angiogram [place] (Exam End: 01/24/2022 11:32 PM) Impression Normal appearance of the large and medium size arteries of the head and neck Thank you for letting us participate in the care of this patient. If you are a health care provider and have any questions regarding this report, please contact the number below. For patients who have questions please contact the health manager wound care that requested your imaging first. Angiogram Carotids [...] who have questions please contact the health manager wound care that requested your imaging first. Chest Abdomen [...] who have questions please contact the health manager wound care that requested your imaging first. Assessment: Alix [...] to this Complex pain needs - adjusted COUNTER WAITER yesterday with improvement Leukocytosis now down-trending with [...] and restarted precautions ?? # ALTHEA requiring SALES AND MANAGEMENT TRAINEE; now on iHD # Hyponatremia (volume overloaded, not eating) # Hyperkalemia - Nephrology following - 1.5L fluid restriction in place ?? # Pain Control, c/b Chronic Opiate Abuse - adjusted COUNTER WAITER - consider subboxone/BIT once more stable ad [...] mg/mL) in sodium chloride 0.9% 50 mL COUNTER WAITER infusion ??? HYDROmorphone (Dilaudid) (1 mg/mL) injection syringe 1 mg ??? sevelamer carbonate (Renvela) tablet 1,600 mg ??? diphenhydrAMINE (Benadryl) (50 mg/mL) injection 25 mg ??? prochlorperazine (Compazine) (5 mg/mL) injection 5 mg ??? ondansetron (pf) (Zofran) (2 mg/mL) injection 4 mg ??? naloxone (Narcan) (0.4 mg/mL) injection 0.2 mg ??? COUNTER WAITER hutton ??? HYDROmorphone (mg) COUNTER WAITER shift total and Settings verification ??? vancomycin [...] No future appointments. Associated attestation - Sigifredo Gracia MD - 02/05/2022 8:51 AM EDT Patient [...] mg/mL) in sodium chloride 0.9% 50 mL COUNTER WAITER infusion ??? HYDROmorphone (Dilaudid) (1 mg/mL) injection syringe 1 mg ??? sevelamer carbonate (Renvela) tablet 1,600 mg ??? diphenhydrAMINE (Benadryl) (50 mg/mL) injection 25 mg ??? prochlorperazine (Compazine) (5 mg/mL) injection 5 mg ??? ondansetron (pf) (Zofran) (2 mg/mL) injection 4 mg ??? naloxone (Narcan) (0.4 mg/mL) injection 0.2 mg ??? COUNTER WAITER hutton ??? HYDROmorphone (mg) COUNTER WAITER shift total and Settings verification ??? vancomycin [...] in the left wrist, less somnolent Changed COUNTER WAITER 4 hour limit and increased dose from [...] Component Value Units Date/Time C. Difficile Screen [[id number]] (Abnormal) Collected: 02/01/22 1355 Lab Status: Final [...] or approval by Infection Prevention. Blood culture [[id number]] Collected: 02/01/22 0635 Lab Status: Preliminary result Specimen: Blood Updated: 02/04/22 1502 Blood Culture No growth at 3 days. Blood culture [[id number]] Collected: 02/01/22 0625 Lab Status: Preliminary result Specimen: Blood Pediatric Updated: 02/04/22 1502 Blood Culture No growth at 3 days. Blood culture [[id number]] Collected: 01/28/22 0345 Lab Status: Final result Specimen: Blood Updated: 02/02/22 0701 Blood Culture No growth at 5 days. MRSA PCR [[id number]] Collected: 01/24/22 1310 Lab Status: Final result Specimen: Nasopharyngeal Swab Updated: 01/25/22 2224 MRSA Result Negative MRSA Interp -- Negative for methicillin-resistant Staphylococcus aureus (MRSA) This test was performed using the [employer] Dx System and the Xpert MRSA Assay. The MRSA target DNA was not detected. The sample processing control and probe check were valid. The performance of this test was determined by the [facility] Molecular Pathology Laboratory. It has been cleared by the U.S. Food and Drug Administration for clinical use. Comment: [VERIFIED DATE]01.25.22 Verified By:Alfonso Soto (Electronic Signature) MRSA PCR [[id number]] Collected: 01/23/22 1247 Lab Status: Final result Specimen: Nasopharyngeal Swab Updated: 01/25/22 1023 MRSA Result Negative MRSA Interp -- Negative for methicillin-resistant Staphylococcus aureus (MRSA) This test was performed using the [employer] Dx System and the Xpert MRSA Assay. The MRSA target DNA was not detected. The sample processing control and probe check were valid. The performance of this test was determined by the [facility] Molecular Pathology Laboratory. It has been cleared by the U.S. Food and Drug Administration for clinical use. Comment: [VERIFIED DATE]01.25.22 Verified By:Nora Shay (Electronic Signature) Lower Respiratory Culture Tracheal Aspirate [[id number]] (Abnormal) (Susceptibility) Collected: 01/23/22 1150 Lab Status: [...] Sensitive [1] Gentamicin is not appropriate for Wise-therapy. [2] Oxacillin (methicillin) susceptibility is a surrogate for the oral and parenteral cephalosporins, beta-lactam combination agents (amoxicillin-clavulanate, ampicillin-sulbactam and piperacillin-tazobactam) and carbapenem agents. It is NOT a surrogate for penicillin, ampicillin or piperacillin susceptibility. Linear View Blood culture [[id number]] Collected: 01/23/22 0600 Lab Status: Final result Specimen: Blood Updated: 01/28/22 0701 Blood Culture No growth at 5 days. Blood culture [[id number]] Collected: 01/23/22 0126 Lab Status: Final result Specimen: Blood Updated: 01/28/22 0701 Blood Culture No growth at 5 days. COVID-19 PCR [[id number]] (Abnormal) Collected: 01/23/22 0044 Lab Status: Final [...] diagnosis of COVID-19 is performed using the [employer] SARS-CoV-2 Assay as authorized by the FDA Emergency Use Authorization (EUA). This EUA assay is intended for In-vitro Diagnostic (IVD) use with respiratory specimens such as nasopharyngeal swabs collected from individuals during the acute phase of infection. This assay is performed based on the instructions for use provided by [employer] and additional guidance provided by CDC and FDA. Testing is performed in the [facility] within the Department of Pathology and Laboratory Medicine at [facility], certified under the Clinical Laboratory Improvement [...] fact sheets at the following FDA website: https://www.fda.gov/medical-devices/cdfvkibkjra-alydsca-5439-ltger-96-yuedoayyf- lht-exhoijnbxxoocv-justgqs-devices/icogh-vtgnuidowrd-ewqf SARS-Cov-2 RNA Source Trach Asp MRSA PCR [[id number]] Collected: 01/23/22 0044 Lab Status: Final result [...] of this test was determined by the [facility] Molecular Pathology Laboratory. It has been cleared [...] who have questions please contact the health manager wound care that requested your imaging first. Head wo Contrast (Generic) (Exam End: 01/23/2022 3:58 AM) Impression Globi pallidi infarcts. Mild cerebral edema. Thank you for letting us participate in the care of this patient. If you are a health care provider and have any questions regarding this report, please contact the number below. For patients who have questions please contact the health manager wound care that requested your imaging first. Electronically signed by: Rex Addison MD, [facility] ([phone]), at 01/23/2022 4:27 AM XR Abdomen 1 [...] who have questions please contact the health manager wound care that requested your imaging first. Electronically signed by: Jacky Mello MD, [facility] ([phone]), at 01/23/2022 8:[address] Lower Extremity [...] who have questions please contact the health manager wound care that requested your imaging first. Electronically signed by: Melita Mills MD, [facility] ([phone]), at 01/24/2022 1:[address] Chest wo [...] who have questions please contact the health manager wound care that requested your imaging first. Electronically signed by: Rex Addison MD, [facility] ([phone]), at 01/23/2022 4:[address] Upper Extremity [...] who have questions please contact the health manager wound care that requested your imaging first. Electronically signed by: Rex Addison MD, [facility] ([phone]), at 01/23/2022 4:58 AM XR Forearm Left [...] who have questions please contact the health manager wound care that requested your imaging first. Electronically signed by: Rex Addison MD, [facility] ([phone]), at 01/23/2022 7:14 AM XR Chest One [...] who have questions please contact the health manager wound care that requested your imaging first. Electronically signed by: Rex Addison MD, [facility] ([phone]), at 01/23/2022 6:56 AM XR Femur 2 views Left (Generic) (Exam End: 01/23/2022 2:04 PM) Impression No significant osseous finding. Thank you for letting us participate in the care of this patient. If you are a health care provider and have any questions regarding this report, please contact the number below. For patients who have questions please contact the health manager wound care that requested your imaging first. Electronically signed by: Lisandro Pruett MD, [facility] ([phone]), at 01/23/2022 2:10 PM XR Tibia Fibula Left (Generic) (Exam End: 01/23/2022 2:04 PM) Impression No bony abnormality seen. Thank you for letting us participate in the care of this patient. If you are a health care provider and have any questions regarding this report, please contact the number below. For patients who have questions please contact the health manager wound care that requested your imaging first. Electronically signed by: Jacky Mello MD, [facility] ([phone]), at 01/23/2022 2:07 PM XR Chest One [...] who have questions please contact the health manager wound care that requested your imaging first. Electronically signed by: Lisandro Pruett MD, [facility] ([phone]), at 01/23/2022 5:01 PM MRI Brain wo [...] who have questions please contact the health manager wound care that requested your imaging first. Electronically signed by: Bernadine Edward [facility] ([phone]), at 01/24/2022 4:[address] Angiogram [place] (Exam End: 01/24/2022 11:32 PM) Impression Normal appearance of the large and medium size arteries of the head and neck Thank you for letting us participate in the care of this patient. If you are a health care provider and have any questions regarding this report, please contact the number below. For patients who have questions please contact the health manager wound care that requested your imaging first. Angiogram Carotids [...] who have questions please contact the health manager wound care that requested your imaging first. Chest Abdomen [...] who have questions please contact the health manager wound care that requested your imaging first. Assessment: Alix [...] to this Complex pain needs - adjusted COUNTER WAITER Leukocytosis now down-trending with treatment of c dif. Also requiring prophylaxis abx with cefazolin until fasciotomy closures. Duplexes were ordered for concern for DVT however these were not able to be completed due to Vac continue COUNTER WAITER Plan: #Rhabdomyolysis??d/t LUE??+ LLE??Compartment Syndrome??with hyperkalemic cardiac [...] and restarted precautions ?? # ALTHEA requiring SALES AND MANAGEMENT TRAINEE; now on iHD # Hyponatremia (volume overloaded, not eating) # Hyperkalemia - Nephrology following - 1.5L fluid restriction in place ?? # Pain Control, c/b Chronic Opiate Abuse - adjusted COUNTER WAITER -on patient controlled anesthesia ? Physical Therapy [...] EDT NEPHROLOGY PROGRESS NOTE Reason for consult: ALTHEA/SALES AND MANAGEMENT TRAINEE Baseline creatinine: ~0.7 (as of 04/2021) Interval [...] extent possible. Dania Thomas MD Nephrology Pager: [phone] Phoenix Dhillon RN - 02/04/2022 6:48 AM EDT OUTCOME EVALUATION NOTE: OUTCOME SUMMARY: Patient remains alert and oriented. He has been maxing out his COUNTER WAITER pumps limit and increased number of attempts [...] Garcia), I&D w/ partial closure 01/29/22 (Dr. Valdovnios), I&D 01/31/22 (Dr. Branch), I&D 02/02/22 (Dr. [...] 250cc SS output over last 24 hours. COUNTER WAITER for pain control. Phos 7.5, Na 120, Cr 5.55, K 5.7 ALTHEA requiring SALES AND MANAGEMENT TRAINEE, now iHD this AM Patient denies chest [...] mg/mL) in sodium chloride 0.9% 50 mL COUNTER WAITER infusion ??? diphenhydrAMINE (Benadryl) (50 mg/mL) injection 25 mg ??? prochlorperazine (Compazine) (5 mg/mL) injection 5 mg ??? ondansetron (pf) (Zofran) (2 mg/mL) injection 4 mg ??? naloxone (Narcan) (0.4 mg/mL) injection 0.2 mg ??? COUNTER WAITER hutton ??? HYDROmorphone (mg) COUNTER WAITER shift total and Settings verification ??? vancomycin [...] Component Value Units Date/Time C. Difficile Screen [[id number]] (Abnormal) Collected: 02/01/22 1355 Lab Status: Final [...] or approval by Infection Prevention. Blood culture [[id number]] Collected: 02/01/22 0635 Lab Status: Preliminary result Specimen: Blood Updated: 02/03/22 1501 Blood Culture No growth at 2 days. Blood culture [[id number]] Collected: 02/01/22 0625 Lab Status: Preliminary result Specimen: Blood Pediatric Updated: 02/03/22 1501 Blood Culture No growth at 2 days. Blood culture [[id number]] Collected: 01/28/22 0345 Lab Status: Final result Specimen: Blood Updated: 02/02/22 0701 Blood Culture No growth at 5 days. MRSA PCR [[id number]] Collected: 01/24/22 1310 Lab Status: Final result Specimen: Nasopharyngeal Swab Updated: 01/25/224 MRSA Result Negative MRSA Interp -- Negative for methicillin-resistant Staphylococcus aureus (MRSA) This test was performed using the GeneXpert?? Dx System and the Xpert MRSA Assay. The MRSA target DNA was not detected. The sample processing control and probe check were valid. The performance of this test was determined by the [facility] Molecular Pathology Laboratory. It has been cleared by the U.S. Food and Drug Administration for clinical use. Comment: [VERIFIED DATE]01.25.22 Verified By:Alfonso Soto (Electronic Signature) MRSA PCR [[id number]] Collected: 01/23/22 1247 Lab Status: Final result [...] of this test was determined by the [facility] Molecular Pathology Laboratory. It has been cleared by the U.S. Food and Drug Administration for clinical use. Comment: [VERIFIED DATE]01.25.22 Verified By:Nora Shay (Electronic Signature) Lower Respiratory Culture Tracheal Aspirate [[id number]] (Abnormal) (Susceptibility) Collected: 01/23/22 1150 Lab Status: [...] Sensitive [1] Gentamicin is not appropriate for Wise-therapy. [2] Oxacillin (methicillin) susceptibility is a surrogate for the oral and parenteral cephalosporins, beta-lactam combination agents (amoxicillin-clavulanate, ampicillin-sulbactam and piperacillin-tazobactam) and carbapenem agents. It is NOT a surrogate for penicillin, ampicillin or piperacillin susceptibility. Linear View Blood culture [[id number]] Collected: 01/23/22 0600 Lab Status: Final result Specimen: Blood Updated: 01/28/22 0701 Blood Culture No growth at 5 days. Blood culture [[id number]] Collected: 01/23/22 0126 Lab Status: Final result Specimen: Blood Updated: 01/28/22 0701 Blood Culture No growth at 5 days. COVID-19 PCR [[id number]] (Abnormal) Collected: 01/23/22 0044 Lab Status: Final [...] diagnosis of COVID-19 is performed using the [employer] SARS-CoV-2 Assay as authorized by the FDA Emergency Use Authorization (EUA). This EUA assay is intended for In-vitro Diagnostic (IVD) use with respiratory specimens such as nasopharyngeal swabs collected from individuals during the acute phase of infection. This assay is performed based on the instructions for use provided by [employer], [employer]. and additional guidance provided by CDC and FDA. Testing is performed in the [facility] within the Department of Pathology and Laboratory Medicine at [facility], certified under the Clinical Laboratory Improvement [...] fact sheets at the following FDA website: https://www.fda.gov/medical-devices/vsujoapmipb-ohebdsk-1714-wvpoh-26-tpustvhdo- bob-cgbgcxnpapkfic-ajooyxb-devices/rbusj-ybclfegtnwg-pujw SARS-Cov-2 RNA Source Trach Asp MRSA PCR [[id number]] Collected: 01/23/22 0044 Lab Status: Final result Specimen: Nasopharyngeal Swab Updated: 01/25/22 1024 MRSA Result Negative MRSA Interp -- Negative for methicillin-resistant Staphylococcus aureus (MRSA) This test was performed using the [employer]?? Dx System and the Xpert MRSA Assay. The MRSA target DNA was not detected. The sample processing control and probe check were valid. The performance of this test was determined by the [facility] Molecular Pathology Laboratory. It has been cleared [...] who have questions please contact the health manager wound care that requested your imaging first. Head wo Contrast (Generic) (Exam End: 01/23/2022 3:58 AM) Impression Globi pallidi infarcts. Mild cerebral edema. Thank you for letting us participate in the care of this patient. If you are a health care provider and have any questions regarding this report, please contact the number below. For patients who have questions please contact the health manager wound care that requested your imaging first. Electronically signed by: Rex Addison MD, [facility] ([phone]), at 01/23/2022 4:27 AM XR Abdomen 1 [...] who have questions please contact the health manager wound care that requested your imaging first. Electronically signed by: Jacky Mello MD, [facility] ([phone]), at 01/23/2022 8:[address] Lower Extremity [...] who have questions please contact the health manager wound care that requested your imaging first. Electronically signed by: Melita Mills MD, [facility] ([phone]), at 01/24/2022 1:[address] Chest wo [...] who have questions please contact the health manager wound care that requested your imaging first. Electronically signed by: Rex Addison MD, [facility] ([phone]), at 01/23/2022 4:[address] Upper Extremity [...] who have questions please contact the health manager wound care that requested your imaging first. Forearm Left [...] who have questions please contact the health manager wound care that requested your imaging first. Chest One [...] who have questions please contact the health manager wound care that requested your imaging first. Electronically signed by: Rex Addison MD, [facility] ([phone]), at 01/23/2022 6:56 AM XR Femur 2 views Left (Generic) (Exam End: 01/23/2022 2:04 PM) Impression No significant osseous finding. Thank you for letting us participate in the care of this patient. If you are a health care provider and have any questions regarding this report, please contact the number below. For patients who have questions please contact the health manager wound care that requested your imaging first. Electronically signed by: Lisandro Pruett MD, [facility] ([phone]), at 01/23/2022 2:10 PM XR Tibia Fibula Left (Generic) (Exam End: 01/23/2022 2:04 PM) Impression No bony abnormality seen. Thank you for letting us participate in the care of this patient. If you are a health care provider and have any questions regarding this report, please contact the number below. For patients who have questions please contact the health manager wound care that requested your imaging first. Electronically signed by: Jacky Mello MD, [facility] ([phone]), at 01/23/2022 2:07 PM XR Chest One [...] who have questions please contact the health manager wound care that requested your imaging first. Electronically signed by: Lisandro Pruett MD, [facility] ([phone]), at 01/23/2022 5:01 PM MRI Brain wo [...] who have questions please contact the health manager wound care that requested your imaging first. Electronically signed by: Bernadine Edward [facility] ([phone]), at 01/24/2022 4:[address] Angiogram [place] (Exam End: 01/24/2022 11:32 PM) Impression Normal appearance of the large and medium size arteries of the head and neck Thank you for letting us participate in the care of this patient. If you are a health care provider and have any questions regarding this report, please contact the number below. For patients who have questions please contact the health manager wound care that requested your imaging first. Angiogram Carotids [...] who have questions please contact the health manager wound care that requested your imaging first. Chest Abdomen [...] who have questions please contact the health manager wound care that requested your imaging first. Electronically signed by: Melita Mills MD, [facility] ([phone]), at 01/30/2022 3:20 PM Assessment: Alix Holland??is [...] to be completed due to Vac continue COUNTER WAITER Plan: #Rhabdomyolysis??d/t LUE??+ LLE??Compartment Syndrome??with hyperkalemic cardiac [...] longer requires precautions ?? # ALTHEA requiring SALES AND MANAGEMENT TRAINEE; now on iHD # Hyponatremia (volume overloaded, [...] at bedside, supportive. NOP @ midnight for OR02/04 Dania Thomas MD - 02/03/2022 2:04 PM EDT NEPHROLOGY PROGRESS NOTE Reason for consult: ALTHEA/SALES AND MANAGEMENT TRAINEE Baseline creatinine: ~0.7 (as of 04/2021) Interval [...] with meals. Dania Thomas MD Nephrology Pager: [phone] Amberly Hardy OT - 02/03/2022 1:09 PM EDT Occupational Therapy Note Document Type: contact Total Minutes, Occupational Therapy: 0 Reason: Patient with low Hgb, 5.6. Defer OT. Will follow up as able and when appropriate. Pager: [phone] Amberly Hardy OT 02/03/2022 Occupational Therapy Rehabilitation [...] Communicated nutrition recs to provider Medicine pager #[phone]. Active Orders Diet NPO diet (Give Meds) [...] 01/28/2022 TRIG 359 01/26/2022 CRP <3.0 04/26/2021 [id number] 535 02/03/2022 SFOLATE 3.9 (L) 02/03/2022 IRON [...] encounter: 116.9 kg (257 lb 11.5 oz). [place] Body Weight: 81 kg Usual Body Weight: [...] sedation and extubated. Pt now on shift SALES AND MANAGEMENT TRAINEE. TF frequently held for OR, have not advanced past trickle TF. TF d/c today, no access at this time. 01/25: Patient intubated and sedated. Pt to OR today for wound vacs. Estimated needs: Calories: 4205-3683 (20-25 kcal/kg IBW) for the first 7-10 [...] inpatient Thank you, Charlotte Castañeda RD Pager #:[phone] Candida Teran RN - 02/03/2022 11:39 AM EDT Patient Name: [employer]: Dan[employer] Requested Clinic: [facility] [place] [address] [place] [id number] PHONE NUMBER Contact Phone/ First date of [...] unit for Hgb 6.4 02/01, likely ABLA COUNTER WAITER for pain control. ALTHEA requiring SALES AND MANAGEMENT TRAINEE, now iHD Patient denies chest pain, shortness [...] mg/mL) in sodium chloride 0.9% 50 mL COUNTER WAITER infusion ??? diphenhydrAMINE (Benadryl) (50 mg/mL) injection 25 mg ??? prochlorperazine (Compazine) (5 mg/mL) injection 5 mg ??? ondansetron (pf) (Zofran) (2 mg/mL) injection 4 mg ??? naloxone (Narcan) (0.4 mg/mL) injection 0.2 mg ??? COUNTER WAITER hutton ??? HYDROmorphone (mg) COUNTER WAITER shift total and Settings verification ??? vancomycin [...] ? ? LUESHAMAR compartment syndrome s/p fasciotimies, I&D 01/23/22, 01/26/22 [...] mg/mL) in sodium chloride 0.9% 50 mL COUNTER WAITER infusion ??? diphenhydrAMINE (Benadryl) (50 mg/mL) injection 25 mg ??? prochlorperazine (Compazine) (5 mg/mL) injection 5 mg ??? ondansetron (pf) (Zofran) (2 mg/mL) injection 4 mg ??? naloxone (Narcan) (0.4 mg/mL) injection 0.2 mg ??? COUNTER WAITER hutton ??? HYDROmorphone (mg) COUNTER WAITER shift total and Settings verification ??? fentaNYL [...] and care for fasciotomy sites. Activity: NWB LIZE, NWB LLE DVT prophylaxis: Per primary Closure: Wound vacs (L volar forearm 1 white & 2 black, L thigh 2 black) Dressing: WVac as above to -125mmHg Antibiotics: continue ABx until fasciotomy sites closed Nahed Fraser MD 02/02/2022 No future appointments. T Dania Thomas MD - 02/02/2022 5:36 PM EDT NEPHROLOGY PROGRESS NOTE Reason for consult: ALTHEA/SALES AND MANAGEMENT TRAINEE Baseline creatinine: ~0.7 (as of 04/2021) Interval [...] with meals. Dania Thomas MD Nephrology Pager: [phone] Luzmaria Saavedra RN - 02/02/2022 10:24 AM EDT C. difficile Infection (CDI) Consult Note Reason for Consult: Patient tested positive for C. difficile. Pertinent labs: PCR positive on 02/01/2022 Section of Infectious Disease Treatment Recommendations: For all inpatient cases of C. difficile [facility] Section of Infectious Disease recommends 125 mg of oral vancomycin QID for at least 14 days (10days beyond symptom resolution), even in cases of [id number] disease. For cases of severe C. difficile infection, please call an Infectious Disease consult and consider adding intravenous metronidazole in addition to oral vancomycin. If the patient is on broad- spectrum antibiotics for another indication, consider continuing oral vancomycin for 7 days after the other antibiotics are stopped. For questions regarding treatment please contact the Infectious Disease fellow carbon grinder at pager [phone]. Infection Prevention Recommendations: ? ? Isolation Recommendations- [...] stay is anticipated, consult Infection Prevention (Pager [phone]) to discuss the process for discontinuing S&W [...] a previously positive test. Applicable policies, guidelines: (83388) C. difficile Testing Policy (v.3) Soap & Water Contact Precautions and C. difficile Procedure Standard and Expanded Precautions Policy Precautions for Specific Diseases and Conditions - Job Aid For questions regarding treatment, please contact the Infectious Disease fellow carbon grinder at pager [phone]. For all other questions regarding C. difficile, please contact Infection Prevention at [phone] or pager [phone]. Thank you. Evangelina Flynn MD - 02/02/2022 10:23 AM EDT MICU STAFF PROGRESS NOTE Critical Care Medicine Author: Evangelina Flynn MD Patient seen and examined on critical care rounds and discussed with house staff. Interval Events: Diagnosed with C diff, started on po vanco Anemia slightly worse yesterday, PRBC tx, suspected from oozing HD session ongoing this morning Pain better controlled on COUNTER WAITER Per dad slept well last night, more [...] vac anteriolateral thigh, smaller wound left lateral mrorow Ventilator: NA on RA Current Drips: Dilaudid COUNTER WAITER Labs/studies reviewed, notable for: WBC 33, downtrending [...] with leukocytosis now on treatment, pneumonia, and [id number] infection (known prior to admission.) Fortunately he is cognitively intact. Active management needs include ongoing pain control which is currently better on dilaudid COUNTER WAITER, need for long-term management of substance use [...] DVTs ordered yesterday and pending NEURO: dilaudid COUNTER WAITER for acute pain currently; long-term suboxone may [...] for Hgb 6.4 yesterday, likely ABLA Started COUNTER WAITER for pain control. Patient denies chest pain, [...] mg/mL) in sodium chloride 0.9% 50 mL COUNTER WAITER infusion ??? diphenhydrAMINE (Benadryl) (50 mg/mL) injection 25 mg ??? prochlorperazine (Compazine) (5 mg/mL) injection 5 mg ??? ondansetron (pf) (Zofran) (2 mg/mL) injection 4 mg ??? naloxone (Narcan) (0.4 mg/mL) injection 0.2 mg ??? COUNTER WAITER hutton ??? HYDROmorphone (mg) COUNTER WAITER shift total and Settings verification ??? fentaNYL [...] Stopped (01/30/22 0815) ??? calcium gluconate Stopped (02/01/22654) ??? Dextrose [...] (1,000 units/mL) injection 1,000-10,000 Units 1,000-10,000 Units UqamppnrgfatoG6O PRN Dimas Hernandez MD 2,400 Units at [...] BID Dimas Hernandez MD 2 tablet at 01/31/222116 ??? folic acid (Folvite) tablet 1,000 mcg [...] Dimas Hernandez MD 3 patch at 01/31/22 2232 And ??? lidocaine (Lidoderm) topical patch REMOVAL [...] mL) subcutaneous injection 5,000 Units 5,000 Units AuzxjkejaqsuE1I Dimas Santos MD 5,000 Units at 02/01/22 [...] Sanz MD - 02/01/2022 9:11 AM EDT [facility] MICU STAFF PROGRESS NOTE SECTION OF PULMONARY [...] for Tuesday. To continue shift therapy this weekend withplan to convert to iHD hopefully tomorrow [...] Section of Pulmonary & Critical Care Pager: [phone] Armando, Doc Martinez MD - 02/01/2022 6:45 AM EDT ORTHOPAEDIC [...] above. Active Hospital Problems Diagnosis ? ? LIZESHAMAR compartment syndrome s/p fasciotimies, I&D 01/23/22, 01/26/22 [...] 08) ??? calcium gluconate 15 mL/hr (02/01/22 012) ??? Dextrose 10% with Custom Additives 100 [...] Dilia Ferrara RN - 01/31/2022 8:35 PM EDTSummary: TELEMETRY STRIP Images from the original note were not included. Twin Lacey MD - 01/31/2022 3:27 PM EDT ORTHOPAEDIC [...] VAC exchange. Doing well post-operatively. Activity: NWB LUE, NWB LLE DVT prophylaxis: [...] (1,000 units/mL) injection 1,000-10,000 Units 1,000-10,000 Units OvyqrguwqizmaC5O PRN Dimas Hernandez MD ??? bicarbonate CRRT [...] Q8H Dimas Santos MD 1,000 mg at 01/31/22 0535 ??? [...] mL) subcutaneous injection 5,000 Units 5,000 Units VmcfobpcsyumR0W Dimas Santos MD 5,000 Units at 01/31/22 [...] We will plan for further shift therapy SALES AND MANAGEMENT TRAINEE overnight. Anticipate trial of intermittent dialysis TuesdayFebruary 02 assuming intake and vital signs remain acceptable. Beck Sanz MD - 01/31/2022 8:51 AM EDT [facility] MICU STAFF PROGRESS NOTE SECTION OF PULMONARY [...] Section of Pulmonary & Critical Care Pager: [phone] Dimas Hernandez MD - 01/31/2022 6:25 AM [...] (CRRT) Stopped (01/30/22 0815) ??? calcium gluconate 10 mL/hr (01/31/22311) ??? [...] seen and examined. - Patient transitioned to [facility]. - Chemistries are stable for now. - [...] (1,000 units/mL) injection 1,000-10,000 Units 1,000-10,000 Units FbhoozeojnwanW9B PRN Vidhya Peñaloza MD ??? bicarbonate CRRT (NxSTAGE) 3 mEq/L K+, 3 mEq/L Ca++, 5,000 mL Solution 5 each 5 each CRRT Continuous Vidhya Peñaloza MD Held at 01/30/22814 ??? potassium phosphate (0.06 mmol/mL) in sodium chloride 0.9% continuous infusion (CRRT) 0-100 mL/hr Intravenous Continuous Vidhya Peñaloza MD Held at 01/30/22814 ??? calcium gluconate 15 g in sodium [...] mg 100 mg Oral Daily Agnieszka López AGRICULTURAL EXTENSION OFFICER 100 mg at ??? ampicillin-sulbactam (Unasyn) 1.5 g vial attach to sodium chloride 0.9% 50 mL Mini-Bag Plus 1.5 g Intravenous Q8H Agnieszka López APRN Stopped at 01/30/22 0929 ??? acetaminophen (Tylenol) tablet 1,000 mg 1,000 mg Oral Q8H [place] Cristina Hillman, AGRICULTURAL EXTENSION OFFICER 1,000 mg at 01/30/22 0611 ??? polyethylene glycoL (Miralax) packet 17 g 17 g Oral Daily Cristina Hillman, AGRICULTURAL EXTENSION OFFICER 17 g at 01/29/22 0957 ??? lidocaine (Lidoderm) 5% patch 3 patch 3 patch Transdermal Q24H Sun Hayden PA 3 patch at 01/29/222211 And ??? lidocaine (Lidoderm) topical patch REMOVAL 1 patch Transdermal Q24H Sun Hayden PA ??? pantoprazole (Protonix) injection 40 mg 40 mg Intravenous Daily Cristina Hillman, AGRICULTURAL EXTENSION OFFICER 40 mg at01/30/2217 ??? docusate sodium (Colace) (10 mg/mL) oral liquid 100 mg 100 mg Oral BID Cristina Hillman B, AGRICULTURAL EXTENSION OFFICER 100 mg at 01/29/222130 And ??? sennosides (Senokot) (1.76 mg/mL) oral liquid 17.6 mg 17.6 mg Oral BID Cristina Hillman B, AGRICULTURAL EXTENSION OFFICER 17.6 mg at 01/29/222130 ??? naloxone (Narcan) [...] Intravenous 2 Times Daily - Shift Total LópezAgnieszka APRN ??? heparin (porcine) 50 units/mL in sodium chloride 0.45% 500 mL infusion 400 Units/hr Intravenous Continuous Pentland, Gemma B, AGRICULTURAL EXTENSION OFFICER 8 mL/hr at 01/29/222130 400 Units/hr at 01/29/222130 ??? glucose (Glutose) 40% oral geL 15-30 g of glucose Buccal Q30 Min PRN Pentland, Gemma B, AGRICULTURAL EXTENSION OFFICER Or ??? dextrose 10% infusion 250 mL Intravenous Q30 Min PRN Pentland, Gemma B, AGRICULTURAL EXTENSION OFFICER Stopped at Or ??? glucagon (Glucagen) (1 mg/mL) injection solution 1 mg 1 mg Intramuscular Q30 Min PRN Pentland, Gemma B, AGRICULTURAL EXTENSION OFFICER ??? heparin (porcine) (5,000 units/1 mL) subcutaneous injection 5,000 Units 5,000 Units TfspgruresptC3T [facility] Pentland, Gemma B, AGRICULTURAL EXTENSION OFFICER 5,000 Units at 01/30/22 0611 Recent Results [...] QTC Calculated (Bezet) 418 ms Calculated P [place] 13 degrees Calculated R [place] 31 degrees Calculated T [place] -8 degrees INTERPRETATION Sinus tachycardia Nonspecific T [...] 9 5 - 15 mmol/L Vidhya Peñaloza #[phone] Associated attestation - Jareth Nino MD - 01/30/2022 4:29 PM EDT I discussed patient with the fellow and observed from the doorway in the setting of COVID-19 isolation. 31-year-old male with an uric ALTHEA in the setting of rhabdomyolysis. We will trial prolonged intermittent CRRT over the weekend. [place] for success of this will be tapering fluid intake target 2 to 3 L. If he is able to tolerate this and we are able to manage ongoing metabolic derangements could consider transition to intermittent dialysis by next week should patient remain anuric Beck Sanz MD - 01/30/2022 8:49 AM EDT [facility] MICU STAFF PROGRESS NOTE SECTION OF PULMONARY [...] Section of Pulmonary & Critical Care Pager: [phone] Armando, Doc Martinez MD - 01/30/2022 6:48 [...] 2.7) performed by Sigifredo Garcia MD at [facility] MAIN OR ? ? PRO DEBRIDEMENT MUSCLE AND FASCIA 20 SQ CM/< Left 01/26/2022 DEBRIDEMENT SKIN, SUBCU, MUSCLE, UPPER EXTREMITY (WRVU 2.7) performed by Sigifredo Garcia MD at [facility] MAIN OR ??? PRO DECOMP FOREARM, 2 COMPART, W/O DEBRIDE Left 01/23/2022 FASCIOTOMY; FOREARM AND\OR WRIST, FLEXOR & EXTENS. COMP (WRVU 10.79) performed by Sigifredo Garcia MD at [facility] OR ??? PRO DECOMPRESS ANT/LAT+POST LEG CMPART Left 01/23/2022 FASCIOTOMY, LOWER LEG, ALL COMPARTMENTS (WRVU 7.82) performed by Sigifredo Garcia MD at [facility] MAIN OR ??? PRO INCIS OF HIP/THIGH FASCIA Left 01/23/2022 @FASCIOTOMY,THIGH OR HIP FOR COMPARTMENT SYNDROME (WRVU 12.89) performed by Sigifredo Garcia MD at [facility] MAIN OR ??? PRO OPEN TREAT MANDIBLE CONDYLE FX, COMPL 04/27/2013 OPEN TREATMENT, COMPLEX MANDIBLE FX., MULTI APPROACH, W/ FIXATION performed by Kishore Neil MD at [facility] MAIN OR ??? PRO REVISE MEDIAN N/CARPAL TUNNEL SURG Left 01/23/2022 MEDIAN NERVE DECOMPRESSION (CARPAL TUNNEL RELEASE) (WRVU 4.97) performed by Sigifredo Garcia MD at [facility] MAIN OR ??? PRO SEC CLSR SURG WOUND/DEHSN EXTENSIVE/COMPLICATED Left 01/26/2022 SECONDARY CLOSURE SURGICAL WOUND OR DEHISCENCE, EXTENSIVE OR COMPLICATED, UPPER EXTREMITY (WRVU 12.04) performed by Sigifredo Garcia MD at [facility] MAIN OR Social History: Patient lives in [place], [place] with his dad. Home Setup: [address] [facility], 2 level home, bedroom on 1st level, bathroom available on 1st level, has a tub shower downstairs. DME:none Baseline ADL/Mobility: Pt reports he was independent w/ aDL's and IADL's, had worked for a [employer] company. He enjoys hunting and fishing. He reports he likes [employer] music (when asked) Precautions/Special Considerations: at risk [...] oriented to: person, thought he was at [facility] (reoriented to ), when asked the date [...] functional position. He and RN were educated zamzam bynuming stretching his fingers into flexion and extension. [...] and measurable assessment of functional outcome. Pager: [phone] JACK JOE OT 01/29/2022 Occupational Therapy Rehabilitation [...] be placed/TF cannot reach goal On shift SALES AND MANAGEMENT TRAINEE Suggest Nepro with a goal rate of [...] discuss plan with provider ARLETH Martinez pager #[phone]. All Active TF Orders: Peptamen Intense VHP [...] Other Sites: Wound vac Relevant medications: shift SALES AND MANAGEMENT TRAINEE, D10 at 100ml/hr, colace, marinol, folic acid, [...] encounter: 116.7 kg (257 lb 4.4 oz). [place] Body Weight: 81 kg Usual Body Weight: [...] sedation and extubated. Pt now on shift SALES AND MANAGEMENT TRAINEE. TF frequently held for OR, have not advanced past trickle TF. TF d/c today, no access at this time. 01/25: Patient intubated and sedated. Pt to OR today for wound vacs. Estimated needs: Calories: [id number] (20-25 kcal/kg IBW) for the first 7-10 days in the ICU Protein: 122 grams (1.5 g/kg IBW) while on shift SALES AND MANAGEMENT TRAINEE Average tube feeding provision over past 3 [...] inpatient Thank you, Charlotte Castañeda RD Pager #:[phone] Meghan Prabhakar, PT - 01/29/2022 10:35 AM [...] 2.7) performed by Sigifredo Garcia MD at [facility] MAIN OR ? ? PRO DEBRIDEMENT MUSCLE AND FASCIA 20 SQ CM/< Left 01/26/2022 DEBRIDEMENT SKIN, SUBCU, MUSCLE, UPPER EXTREMITY (WRVU 2.7) performed by Sigifredo Garcia MD at [facility] MAIN OR ??? PRO DECOMP FOREARM, 2 COMPART, W/O DEBRIDE Left 01/23/2022 FASCIOTOMY; FOREARM AND\OR WRIST, FLEXOR & EXTENS. COMP (WRVU 10.79) performed by Sigifredo Garcia MD at [facility] MAIN OR ??? PRO DECOMPRESS ANT/LAT+POST LEG CMPART Left 01/23/2022 FASCIOTOMY, LOWER LEG, ALL COMPARTMENTS (WRVU 7.82) performed by Sigifredo Garcia MD at [facility] MAIN OR ??? PRO INCIS OF HIP/THIGH FASCIA Left 01/23/2022 @FASCIOTOMY,THIGH OR HIP FOR COMPARTMENT SYNDROME (WRVU 12.89) performed by Sigifredo Garcia MD at [facility] MAIN OR ??? PRO OPEN TREAT MANDIBLE CONDYLE FX, COMPL 04/27/2013 OPEN TREATMENT, COMPLEX MANDIBLE FX., MULTI APPROACH, W/ FIXATION performed by Kishore Neil MD at [facility] MAIN OR ??? PRO REVISE MEDIAN N/CARPAL TUNNEL SURG Left 01/23/2022 MEDIAN NERVE DECOMPRESSION (CARPAL TUNNEL RELEASE) (WRVU 4.97) performed by Sigifredo Garcia MD at [facility] MAIN OR ??? PRO SEC CLSR SURG WOUND/DEHSN EXTENSIVE/COMPLICATED Left 01/26/2022 SECONDARY CLOSURE SURGICAL WOUND OR DEHISCENCE, EXTENSIVE OR COMPLICATED, UPPER EXTREMITY (WRVU 12.04) performed by Sigifredo Garcia MD at [facility] MAIN OR Social History: Home setup: Pt lives with his father in a two level home with a couple [place]. Pt's bedroom and bathroom are on the first floor. The bathroom has a tub shower. Baseline Mobility/Prior level of function: Independent with mobility, ADLs and IADLs, drives, used to work for a [employer] company but is not currently working. Enjoys [...] self, hospital (but thinks he is at [facility]), and general situation but not specific injuries. [...] in this evaluation. Time IN / OUT: 0013-0504 Total Minutes, Physical Therapy: 43 (eval). Meghan Prabhakar, PT DPT 01/29/2022 Pager: [phone] Physical Therapy Inpatient Rehabilitation Department Alcira Dwyer [...] kg/m?? I/O last 3 completed shifts: In: 53896.3 [P.O.:1070; I.V.:8680.3; Other:40; NG/GT:394; IV Piggyback:303] Out: [...] Boykin MD - 01/29/2022 8:58 AM EDT [facility] MICU STAFF PROGRESS NOTE SECTION OF PULMONARY [...] Section of Pulmonary & Critical Care Pager: [phone] Armando, Doc Martinez MD - 01/29/2022 6:56 [...] as appropriate. Meghan Prabhakar PT DPT Pager #[phone] 01/28/2022 Physical Therapy Rehabilitation Department Dai Duarte, OT - 01/28/2022 11:28 AM EDT Occupational Therapy: 01/28/22 1127 Evaluation & Treatment Document Type contact Total Minutes, Occupational Therapy 0 Comment, Session Not Performed OT orders received/chart reviewed. Patient scheduled for the OR today. RN requested therapy hold for today. OT will follow up tomorrow Dai Duarte OTR/L Pager [phone] Alcira Dwyer MD - 01/28/2022 9:09 AM [...] kg/m?? I/O last 3 completed shifts: In: 46996.9 [P.O.:1150; I.V.:34489.9; NG/GT:1213; IV Piggyback:394] Out: 40799 [Urine:160; Other:51267] CBC Lab Results Component Value Date WBC [...] filter holiday overnight see if he will fern picker his urine output. We can decide tomorrow if he is a candidate for shift therapy. It is possible that he will improve enough that he could be managed with diuretics. We will continue to follow Backer, Beck Boykin MD - 01/28/2022 9:07 AM EDT [facility] MICU STAFF PROGRESS NOTE SECTION OF PULMONARY [...] Section of Pulmonary & Critical Care Pager: [phone] Parrish Esqueda MD - 01/28/2022 5:26 AM [...] per 24 hour Intake 9192.61 ml Output 35140 ml Net -1170.39 ml Body mass index [...] Villela RN - 01/27/2022 9:16 PM EDTSummary: [facility] Images from the original note were not [...] 0620 01/24/22 0016 PHART 7.45 7.48* 7.48* [id number] 33* 29* 30* PO2ART 114* 68* 70* [id number] 22.4 21.1 22.0 Intake/Output Summary (Last 24 hours) at 01/28/2022 0703 Last data filed at 01/28/2022 0700 Gross per 24 hour Intake 9662.51 ml Output 39408 ml Net -1043.49 ml Output: Urine 70 mL For admission: +83029.1 mL Physical Exam: General: Awake, somewhat conversational [...] Procedure Component Value Units Date/Time MRSA PCR [[id number]] Collected: 01/24/22 1310 Lab Status: Final result Specimen: Nasopharyngeal Swab Updated: 01/25/22 2224 MRSA Result Negative MRSA Interp -- Negative for methicillin-resistant Staphylococcus aureus (MRSA) This test was performed using the GenePo[employer]?? Dx System and the Xpert MRSA Assay. The MRSA target DNA was not detected. The sample processing control and probe check were valid. The performance of this test was determined by the [facility] Molecular Pathology Laboratory. It has been cleared by the U.S. Food and Drug Administration for clinical use. Comment: [VERIFIED DATE]01.25.22 Verified By:Alfonso Soto (Electronic Signature) MRSA PCR [[id number]] Collected: 01/23/22 1247 Lab Status: Final result Specimen: Nasopharyngeal Swab Updated: 01/25/22 1023 MRSA Result Negative MRSA Interp -- Negative for methicillin-resistant Staphylococcus aureus (MRSA) This test was performed using the [employer] Dx System and the Xpert MRSA Assay. The MRSA target DNA was not detected. The sample processing control and probe check were valid. The performance of this test was determined by the [facility] Molecular Pathology Laboratory. It has been cleared by the U.S. Food and Drug Administration for clinical use. Comment: [VERIFIED DATE]01.25.22 Verified By:Nora Shay (Electronic Signature) Lower Respiratory Culture Tracheal Aspirate [[id number]] (Abnormal) (Susceptibility) Collected: 01/23/22 1150 Lab Status: [...] Sensitive [1] Gentamicin is not appropriate for Wise-therapy. [2] Oxacillin (methicillin) susceptibility is a surrogate for the oral and parenteral cephalosporins, beta-lactam combination agents (amoxicillin-clavulanate, ampicillin-sulbactam and piperacillin-tazobactam) and carbapenem agents. It is NOT a surrogate for penicillin, ampicillin or piperacillin susceptibility. Linear View Blood culture [[id number]] Collected: 01/23/22 0600 Lab Status: Final result Specimen: Blood Updated: 01/28/22 0701 Blood Culture No growth at 5 days. Blood culture [[id number]] Collected: 01/23/22 0126 Lab Status: Final result Specimen: Blood Updated: 01/28/22 0701 Blood Culture No growth at 5 days. COVID-19 PCR [[id number]] (Abnormal) Collected: 01/23/22 0044 Lab Status: Final [...] diagnosis of COVID-19 is performed using the [employer] SARS-CoV-2 Assay as authorized by the FDA Emergency Use Authorization (EUA). This EUA assay is intended for In-vitro Diagnostic (IVD) use with respiratory specimens such as nasopharyngeal swabs collected from individuals during the acute phase of infection. This assay is performed based on the instructions for use provided by [employer] and additional guidance provided by CDC and FDA. Testing is performed in the [facility] within the Department of Pathology and Laboratory Medicine at [facility], certified under the Clinical Laboratory Improvement [...] fact sheets at the following FDA website: https://www.fda.gov/medical-devices/vynwrjrknpv-jsnvfpt-2490-wqwfq-15-nsczhusjw- mbo-ecvtykhihinrlv-bzdqdmp-devices/jqwfy-azflmflmdcv-qjop SARS-Cov-2 RNA Source Trach Asp MRSA PCR [[id number]] Collected: 01/23/22 0044 Lab Status: Final result [...] of this test was determined by the [facility] Molecular Pathology Laboratory. It has been cleared [...] 28, 2022 Critical Care Green Team (pager [phone]) Alcira Dwyer MD - 01/27/2022 10:10 AM [...] kg/m?? I/O last 3 completed shifts: In: 26434.5 [I.V.:04006.5; NG/GT:319; IV Piggyback:236] Out: 8974 [Urine:105; Other:8864; [...] Boykin MD - 01/27/2022 9:35 AM EDT [facility] MICU STAFF PROGRESS NOTE SECTION OF PULMONARY [...] Section of Pulmonary & Critical Care Pager: [phone] Gail Leahy - 01/27/2022 6:14 AM EDT Images from the original note were not included. Critical Care Green Team Shared Progress Note Admitted: 01/23/2022 12:29 AM Hospital day: 4 ICU day: 3 ID: lAix Holland is a 31 y.o. male with [...] dextrose 5% lactated ringers 250 mL/hr (01/27/22 0800) ??? ketamine 0.5 mg/kg/hr (01/27/22 0937) ??? [...] 0620 01/24/22 0016 PHART 7.45 7.48* 7.48* [id number] 33* 29* 30* PO2ART 114* 68* 70* [id number] 22.4 21.1 22.0 Intake/Output Summary (Last 24 hours) at 01/27/2022 0941 Last data filed at 01/27/2022 0900 Gross per 24 hour Intake 50817.32 ml Output 7421 ml Net 3034.32 ml [...] Procedure Component Value Units Date/Time MRSA PCR [[id number]] Collected: 01/24/22 1310 Lab Status: Final result Specimen: Nasopharyngeal Swab Updated: 01/25/222223 MRSA Result Negative MRSA Interp -- Negative for methicillin-resistant Staphylococcus aureus (MRSA) This test was performed using the GeneXpert?? Dx System and the Xpert MRSA Assay. The MRSA target DNA was not detected. The sample processing control and probe check were valid. The performance of this test was determined by the [facility] Molecular Pathology Laboratory. It has been cleared by the U.S. Food and Drug Administration for clinical use. Comment: [VERIFIED DATE]01.25.22 Verified By:Alfonso Soto (Electronic Signature) MRSA PCR [[id number]] Collected: 01/23/22 1247 Lab Status: Final result [...] of this test was determined by the [facility] Molecular Pathology Laboratory. It has been cleared by the U.S. Food and Drug Administration for clinical use. Comment: [VERIFIED DATE]01.25.22 Verified By:Nora Shay (Electronic Signature) Lower Respiratory Culture Tracheal Aspirate [[id number]] (Abnormal) (Susceptibility) Collected: 01/23/22 1150 Lab Status: [...] Sensitive [1] Gentamicin is not appropriate for Wise-therapy. [2] Oxacillin (methicillin) susceptibility is a surrogate for the oral and parenteral cephalosporins, beta-lactam combination agents (amoxicillin-clavulanate, ampicillin-sulbactam and piperacillin-tazobactam) and carbapenem agents. It is NOT a surrogate for penicillin, ampicillin or piperacillin susceptibility. Linear View Blood culture [[id number]] Collected: 01/23/22 0600 Lab Status: Preliminary result Specimen: Blood Updated: 01/27/22 0701 Blood Culture No growth at 4 days. Blood culture [[id number]] Collected: 01/23/22 0126 Lab Status: Preliminary result Specimen: Blood Updated: 01/27/22 0701 Blood Culture No growth at 4 days. COVID-19 PCR [[id number]] (Abnormal) Collected: 01/23/22 0044 Lab Status: Final [...] diagnosis of COVID-19 is performed using the [employer] m SARS-CoV-2 Assay as authorized by the FDA Emergency Use Authorization (EUA). This EUA assay is intended for In-vitro Diagnostic (IVD) use with respiratory specimens such as nasopharyngeal swabs collected from individuals during the acute phase of infection. This assay is performed based on the instructions for use provided by [employer] and additional guidance provided by CDC and FDA. Testing is performed in the [facility] within the Department of Pathology and Laboratory Medicine at [facility], certified under the Clinical Laboratory Improvement [...] fact sheets at the following FDA website: https://www.fda.gov/medical-devices/kfbadupxjka-zcttupv-8782-fpqun-79-vzwghefpg- elm-qswbayvrfnwnwq-erpjdvc-devices/knrtm-omaxykhabxp-gckq SARS-Cov-2 RNA Source Trach Asp MRSA PCR [[id number]] Collected: 01/23/22 0044 Lab Status: Final result [...] of this test was determined by the [facility] Molecular Pathology Laboratory. It has been cleared [...] 0035 -- 4 Naso/Oral Tube 01/23/22 0059 [place] sump left nostril 01/23/22 0059 left nostril 4 Consults: ortho, neuro, ACS, wound, nephrology Decision Making: Code Status: Full Disposition: ICU Suggestions for changes: Gail Long January 27, 2022 Critical Care Green Team (pager [phone]) Parrish Esqueda MD - 01/27/2022 5:32 AM [...] (01/27/22 0125) ??? ketamine 0.5 mg/kg/hr (01/27/22 0416) ??? heparin (porcine) infusion 400 Units/hr (01/26/22 2307) ??? bicarbonate CRRT with 4 mEq/L K+, [...] Villela RN - 01/26/2022 8:25 PM EDTSummary: [facility] Images from the original note were not included. Nahed Green RT - 01/26/2022 8:21 PM EDT Pt received intubated on PSV 5/5/21% at the start of shift. Order to extubate was placed. Pt extubated at 2014 with at the bedside and placed on 2 [...] 0620 01/24/22 0016 PHART 7.45 7.48* 7.48* [id number] 33* 29* 30* PO2ART 114* 68* 70* [id number] 22.4 21.1 22.0 Intake/Output Summary (Last 24 [...] Procedure Component Value Units Date/Time MRSA PCR [[id number]] Collected: 01/24/22 1310 Lab Status: Final result Specimen: Nasopharyngeal Swab Updated: 01/25/222223 MRSA Result Negative MRSA Interp -- Negative for methicillin-resistant Staphylococcus aureus (MRSA) This test was performed using the GeneXpert?? Dx System and the Xpert MRSA Assay. The MRSA target DNA was not detected. The sample processing control and probe check were valid. The performance of this test was determined by the [facility] Molecular Pathology Laboratory. It has been cleared by the U.S. Food and Drug Administration for clinical use. Comment: [VERIFIED DATE]01.25.22 Verified By:Alfonso Soto (Electronic Signature) MRSA PCR [[id number]] Collected: 01/23/22 1247 Lab Status: Final result [...] of this test was determined by the [facility] Molecular Pathology Laboratory. It has been cleared by the U.S. Food and Drug Administration for clinical use. Comment: [VERIFIED DATE]01.25.22 Verified By:Nora Shay (Electronic Signature) Lower Respiratory Culture Tracheal Aspirate [[id number]] (Abnormal) (Susceptibility) Collected: 01/23/22 1150 Lab Status: [...] Sensitive [1] Gentamicin is not appropriate for Wise-therapy. [2] Oxacillin (methicillin) susceptibility is a surrogate for the oral and parenteral cephalosporins, beta-lactam combination agents (amoxicillin-clavulanate, ampicillin-sulbactam and piperacillin-tazobactam) and carbapenem agents. It is NOT a surrogate for penicillin, ampicillin or piperacillin susceptibility. Linear View Blood culture [[id number]] Collected: 01/23/22 0600 Lab Status: Preliminary result Specimen: Blood Updated: 01/26/22 0701 Blood Culture No growth at 3 days. Blood culture [[id number]] Collected: 01/23/22 0126 Lab Status: Preliminary result Specimen: Blood Updated: 01/26/22 0701 Blood Culture No growth at 3 days. COVID-19 PCR [[id number]] (Abnormal) Collected: 01/23/22 0044 Lab Status: Final [...] diagnosis of COVID-19 is performed using the [employer] m SARS-CoV-2 Assay as authorized by the FDA Emergency Use Authorization (EUA). This EUA assay is intended for In-vitro Diagnostic (IVD) use with respiratory specimens such as nasopharyngeal swabs collected from individuals during the acute phase of infection. This assay is performed based on the instructions for use provided by [employer] and additional guidance provided by [facility] and FDA. Testing is performed in the [facility] within the Department of Pathology and Laboratory Medicine at [facility], certified under the Clinical Laboratory Improvement [...] fact sheets at the following FDA website: https://www.fda.gov/medical-devices/mnhwpgoerkc-vghcmlv-0975-dzagn-76-ivogvrioo- lfa-fisoblptmpskpi-vpbypsg-devices/bdiex-ptfkvtzgknv-dyyy SARS-Cov-2 RNA Source Trach Asp MRSA PCR [[id number]] Collected: 01/23/22 0044 Lab Status: Final result Specimen: Nasopharyngeal Swab Updated: 01/25/22 1024 MRSA Result Negative MRSA Interp -- Negative for methicillin-resistant Staphylococcus aureus (MRSA) This test was performed using the [employer] Dx System and the Xpert MRSA Assay. The MRSA target DNA was not detected. The sample processing control and probe check were valid. The performance of this test was determined by the [facility] Molecular Pathology Laboratory. It has been cleared [...] 0035 -- 3 Naso/Oral Tube 01/23/22 0059 [place] sump left nostril 01/23/22 0059 left nostril 3 ETT Airway 01/23/22 0116 01/23/22 0116 -- 3 Consults: ortho Decision Making: Code Status: Full Disposition: ICU Suggestions for changes: Gail Long January 26, 2022 Critical Care Green Team (pager [phone]) Nahed Fraser MD - 01/26/2022 11:32 AM EDT ORTHOPAEDIC SURGERY INPATIENT PROGRESS NOTE Patient Name: Alix Holland Age: 31 y.o. Surgery/Issue: s/p I+D LUE, LLE Attending: Dr. Garcia Date of surgery: 01/23/2022 SUBJECTIVE / INTERVAL HISTORY: Endorsing pain in the LLE moreso than the LUE. Patient denies chest pain, shortness of breath, nausea, vomiting, numbness/weakness. FOCUSED REVIEW OF SYSTEMS: as above. Active Hospital Problems Diagnosis ??? Rhabdomyolysis ??? Transaminitis ??? Aspiration pneumonia ??? LUE, LLE compartment syndrome s/p fasciotimies, I+D [...] evaluation by PT/OT on POD1. Activity: NWB EDITH ROBB DVT prophylaxis: Per primary Closure: Wound vacs [...] He is requiring full support with CVVH. Beck Sanz MD - 01/26/2022 8:00 AM EDT [facility] MICU STAFF PROGRESS NOTE SECTION OF PULMONARY [...] Section of Pulmonary & Critical Care Pager: [phone] Kris Dean MD - 01/26/2022 6:01 AM EDT ORTHOPAEDIC SURGERY INPATIENT PROGRESS NOTE Patient Name: Alix Holland Age: 31 y.o. Surgery/Issue: L forearm, thigh, buttock, leg compartment syndrome s/p fasciotomies Attending: Jose Date of surgery: 01/23/2022 SUBJECTIVE / INTERVAL HISTORY: Alix remains intubated and sedated, but per medical staff coordinator he is moving bilateral upper and lower [...] mL Mini-Bag Plus ??? propofoL 30 mcg/kg/min (01/26/22 06) ??? heparin (porcine) infusion 400 Units/hr (01/26/22599) [...] of fasciotomy sites. - Activity: NWB LUE, EDITH LLE - Antibiotics: rec Ancef - DVT [...] Garcia MD Department of Orthopaedics 01/27/22 Destinee Hasikns RN - 01/25/2022 9:07 PM EDTSummary: TeleICU [...] Patient would occasionally take exceptionally large Vt's, [id number] >2 liters. This was not typical however, and for the majority of the [facility] patient was comfortable with MV support. Continue to support patient with MV. RT Jameel T Alcira Dwyer MD - 01/25/2022 9:46 AM [...] kg/m?? I/O last 3 completed shifts: In: 63394 [I.V.:9488; NG/GT:97; IV Piggyback:904] Out: 5394 [Urine:171; [...] Boykin MD - 01/25/2022 7:53 AM EDT [facility] MICU STAFF PROGRESS NOTE SECTION OF PULMONARY [...] MICU Attending Pulmonary & Critical Care Pager: [phone] Kris Dean MD - 01/25/2022 5:55 AM EDT ORTHOPAEDIC SURGERY INPATIENT PROGRESS NOTE Patient Name: Alix Holland Age: 31 y.o. Surgery/Issue: L forearm, thigh, buttock, leg compartment syndrome s/p fasciotomies Attending: Jose Date of surgery: 01/23/2022 SUBJECTIVE / INTERVAL HISTORY: Alix remains intubated and sedated, but per medical staff coordinator he is moving bilateral upper and lower [...] K+, 3 mEq/L Ca++ 5 each (01/25/22 1487) ??? sodium phosphate ??? calcium gluconate 10 [...] acidosis ?? Transaminitis 2/2 shock liver ?? LATHEA requiring CRRT ?? Incidental dx of COVID-19 [...] 1810 01/23/22 1156 PHART 7.48* 7.46* 7.43 [id number] 29* 31* 32* PO2ART 68* 79* 86 [id number] 21.1 21.5 20.8 Intake/Output Summary (Last 24 [...] Recent Labs 01/24/22 0625 01/24/22 0018 01/23/22 18101/23/22 1130 01/23/22 0449 01/23/22 0045 04/28/21 0400 [...] LFTs Recent Labs 01/24/22 0018 01/23/22 0045 04/26/215 AST 1,181* >700* 19 ALT 682* >700* 28 ALKPHOS 65 71 53 BILITOT 0.5 0.4 0.3 BILIDIR 0.2 0.2 -- Last Ca, Mg, Phos Recent Labs 01/24/22 001 CALCIUM 8.0* PHOS 4.5 MAGNESIUM 0.92 Last [...] Units Date/Time Lower Respiratory Culture Tracheal Aspirate [[id number]] (Abnormal) Collected: 01/23/22 1150 Lab Status: Preliminary result Specimen: Tracheal Aspirate Updated: 01/24/22 0848 Lower Respiratory Culture -- Many Staphylococcus aureus Few mixed bacterial morphotypes suggestive of normal upper respiratory yessy Gram Stain -- Many Neutrophils No squamous epithelial cells Moderate Gram Positive Cocci Blood culture [[id number]] Collected: 01/23/22 0600 Lab Status: Preliminary result Specimen: Blood Updated: 01/24/22 0701 Blood Culture No growth at 1 day. Blood culture [[id number]] Collected: 01/23/22 0126 Lab Status: Preliminary result Specimen: Blood Updated: 01/24/22 0701 Blood Culture No growth at 1 day. COVID-19 PCR [[id number]] (Abnormal) Collected: 01/23/22 0044 Lab Status: Final [...] diagnosis of COVID-19 is performed using the [employer] m SARS-CoV-2 Assay as authorized by the FDA Emergency Use Authorization (EUA). This EUA assay is intended for In-vitro Diagnostic (IVD) use with respiratory specimens such as nasopharyngeal swabs collected from individuals during the acute phase of infection. This assay is performed based on the instructions for use provided by [employer] and additional guidance provided by CDC and FDA. Testing is performed in the [facility] within the Department of Pathology and Laboratory Medicine at [facility], certified under the Clinical Laboratory Improvement [...] fact sheets at the following FDA website: https://www.fda.gov/medical-devices/oxcsmwytdbm-xoiqrts-8918-uisrz-05-bxsiijpxk- jkd-qdurfkaxaopwwn-noyrizt-devices/gjtkr-croaxmcbcxj-svzf SARS-Cov-2 RNA Source Trach Asp ECG: Telemetry [...] who have questions please contact the health manager wound care that requested your imaging first. Head wo Contrast (Generic) (Exam End: 01/23/2022 3:58 AM) Impression Globi pallidi infarcts. Mild cerebral edema. Thank you for letting us participate in the care of this patient. If you are a health care provider and have any questions regarding this report, please contact the number below. For patients who have questions please contact the health manager wound care that requested your imaging first. Electronically signed by: Rex Addison MD, [facility] ([phone]), at 01/23/2022 4:27 AM XR Abdomen 1 [...] who have questions please contact the health manager wound care that requested your imaging first. Electronically signed by: Jacky Mello MD, [facility] ([phone]), at 01/23/2022 8:[address] Lower Extremity [...] who have questions please contact the health manager wound care that requested your imaging first. Electronically signed by: Melita Mills MD, [facility] ([phone]), at 01/24/2022 1:[address] Chest wo [...] who have questions please contact the health manager wound care that requested your imaging first. Electronically signed by: Rex Addison MD, [facility] ([phone]), at 01/23/2022 4:[address] Upper Extremity [...] who have questions please contact the health manager wound care that requested your imaging first. Forearm Left [...] who have questions please contact the health manager wound care that requested your imaging first. Chest One [...] who have questions please contact the health manager wound care that requested your imaging first. Electronically signed by: Rex Addison MD, [facility] ([phone]), at 01/23/2022 6:56 AM XR Femur 2 views Left (Generic) (Exam End: 01/23/2022 2:04 PM) Impression No significant osseous finding. Thank you for letting us participate in the care of this patient. If you are a health care provider and have any questions regarding this report, please contact the number below. For patients who have questions please contact the health manager wound care that requested your imaging first. Electronically signed by: Lisandro Pruett MD, [facility] ([phone]), at 01/23/2022 2:10 PM XR Tibia Fibula Left (Generic) (Exam End: 01/23/2022 2:04 PM) Impression No bony abnormality seen. Thank you for letting us participate in the care of this patient. If you are a health care provider and have any questions regarding this report, please contact the number below. For patients who have questions please contact the health manager wound care that requested your imaging first. Electronically signed by: Jacky Mello MD, [facility] ([phone]), at 01/23/2022 2:07 PM XR Chest One [...] who have questions please contact the health manager wound care that requested your imaging first. Electronically signed by: Lisandro Pruett MD, [facility] ([phone]), at 01/23/2022 5:01 PM Assessment: Alix is [...] 24, 2022 Critical Care Green Team (pager [phone]) Angelina Meek MD - 01/24/2022 3:02 PM EDT Nephrology Attending Procedure note: CRRT Alix Holland was seen and examined on CVVH. Data and chart reviewed. The case was discussed with the CCS team 31 y.o.??male?? presented to ICU having been found down at home conscious but then experienced ymy-ye-geidrohe cardiac arrest with ROSC, severe hyperkalemia, rhabdomyolysis, [...] changes made at this time Galdino Cotter, - 01/24/2022 9:48 AM EDT AMV Protocol: [...] treatment for lisinopril, GERD was brought [facility] via EMS today after he was notedto have a cardiac arrest. He had a hospital admission at [facility] in Apr 2021 for angioedema. During that admission, he had initially presented at [facility] with facial and oropharyngeal swelling and had to be fibreoptically intubated in the OR. He was transferred to [facility] for further management and received treatment with [...] EMS was called and en route to [facility], he was noted to be in possible SVT. He was given narcan which did not help. The details are slightly uncertain/unclear. On arrival to [facility], he was noted to have a V. tach arrest for which she was shocked. He is lab work was consistent with hyperkalemia with a potassium of 7.8 for which she received multiple doses of sodium bicarbonate, calcium gluconate and insulin/D10 with improvement in potassium to5.4. He was also intubated at [facility] and was transferred to [facility] for further management. He was found to be COVID-positive at [facility]. On arrival to [facility], he was again noted to be hyperkalemic [...] to OSH and and after arrival to [facility], was weaned to minimal oxygen support. CT [...] eyes with verbal stimulus. Has followed commands. [facility] labs and studies: 01/24/2022 WBC 11.4 hemoglobin 14.8 hematocrit 41.7 platelets 136 ABG 7.4 03/29/1967 Sodium 136 potassium 4.4 chloride 103 [place] [address] Total bilirubin 0.5 AST 1181 ALT 682 [...] 0035 -- 1 Naso/Oral Tube 01/23/22 0059 [place] sump left nostril 01/23/22 0059 left nostril [...] on CRRT. Hg 14.8, CK remains elevated 88966. AFVSS, NAEON. No motor or sensory exam [...] infusion ??? heparin (porcine) infusion 400 Units/hr (06/26/22 1700) ??? bicarbonate CRRT with 4 mEq/L [...] plan of care as outlined above. Sigifredo Garica MD Department of Orthopaedics 01/25/22 Debbie Escobar RCP - 01/24/2022 5:21 AM EDT AMV Protocol: Yes SBT Protocol: Yes SBT: Not performed per [facility] availability. Vent Settings: Ventilator Mode: PS/CPAP PEEP [...] >220,000 (H) 0 - 200 unit/L TSH [place] Result Value Ref Range TSH 7.69 (H) [...] Value Ref Range T&S only valid at [facility] Triglyceride Result Value Ref Range Triglycerides [...] mcL Appearance UA Cloudy (A) Clear Spec [place] UA >=1.030 (A) 1.006 - 1.030 Color [...] 2.5 - 4.5 mg/dL Blood Gas Arterial ([facility]) Result Value Ref Range pH Art 7.37 [...] Skin Integrity: WDL Ambu bag setup at HOB Breath Sounds: coarse/diminished Secretions: scant creamy thick [...] down at home conscious but then experienced [id number] cardiac arrest with ROSC, severe hyperkalemia, rhabdomyolysis, [...] EMS. Patient had cardiac arrest enroute to [facility] ED for which Jitendra CPR was initiated. [...] -Tylenol, - salicylates, -ETOH. Upon arrival to [facility], pt intubated and ventilator-noncompliant. Ketamine boluses given [...] 0800) ??? [SEP Hold] propofoL 30 mcg/kg/min (01/23/22621) ??? [SEP Hold] lactated Ringers 250 mL/hr [...] 01/23/22 0721 01/23/22 0125 PHART 7.37 7.32* SJA5GDI 28* 33* PO2ART 96 68* IKM6NOS 15.7* 16.8* Intake/Output Summary (Last 24 hours) at 01/23/2022 0920 Last data filed at 01/23/2022 0819 Gross [...] who have questions please contact the health manager wound care that requested your imaging first. Head wo Contrast (Generic) (Exam End: 01/23/2022 3:58 AM) Impression Globi pallidi infarcts. Mild cerebral edema. Thank you for letting us participate in the care of this patient. If you are a health care provider and have any questions regarding this report, please contact the number below. For patients who have questions please contact the health manager wound care that requested your imaging first. Electronically signed by: Rex Addison MD, [facility] ([phone]), at 01/23/2022 4:27 AM XR Abdomen 1 [...] who have questions please contact the health manager wound care that requested your imaging first. Electronically signed by: Jacky Mello MD, [facility] ([phone]), at 01/23/2022 8:[address] Chest wo [...] who have questions please contact the health manager wound care that requested your imaging first. Electronically signed by: Rex Addison MD, [facility] ([phone]), at 01/23/2022 4:[address] Upper Extremity [...] who have questions please contact the health manager wound care that requested your imaging first. Electronically signed by: Rex Addison MD, [facility] ([phone]), at 01/23/2022 4:58 AM XR Forearm Left [...] who have questions please contact the health manager wound care that requested your imaging first. Electronically signed by: Rex Addison MD, [facility] ([phone]), at 01/23/2022 7:14 AM XR Chest One [...] who have questions please contact the health manager wound care that requested your imaging first. Assessment: Alix [...] FiO2 weaned to 30% since admission to [facility]. He has also been febrile with Tmax [...] 23, 2022 Critical Care Green Team (pager [phone]) Tex Robles MD - 01/23/2022 8:22 AM EDT MICU STAFF ADMISSION NOTE Critical Care Medicine Author: Tex Robles MD Patient seen and examined on admission to the ICU. HPI Alix Holland is a 31 y.o. male with PMH of Polysubstance abuse including alcohol, HTN with prior treatment for lisinopril, GERD was brought to [facility] via EMS today after he was notedto have a cardiac arrest. He had a hospital admission at [facility] in Apr 2021 for angioedema. During that admission, he had initially presented at [facility] with facial and oropharyngeal swelling and had to be fibreoptically intubated in the OR. He was transferred to [facility] for further management and received treatment with [...] EMS was called and en route to [facility], he was noted to be in possible SVT. He was given narcan which did not help. The details are slightly uncertain/unclear. On arrival to [facility], he was noted to have a V. tach arrest for which she was shocked. He is lab work was consistent with hyperkalemia with a potassium of 7.8 for which she received multiple doses of sodium bicarbonate, calcium gluconate and insulin/D10 with improvement in potassium to5.4. He was also intubated at [facility] and was transferred to [facility] for further management. He was found to be COVID-positive at [facility]. On arrival to [facility], he was again noted to be hyperkalemic [...] to OSH and and after arrival to [facility], was weaned to minimal oxygen support. CT [...] done by CHRISTA today given COVID precautions. [facility] labs and studies: WBC 4.1 hemoglobin 17.6 [...] less than 1 Naso/Oral Tube 01/23/22 0059 [place] sump left nostril 01/23/22 0059 left nostril [...] Wen MD - 01/23/2022 4:37 AM EDT [facility] TeleICU Initial Assessment Note I established audio/visual communication with the patient's room, reviewed the eDH, and discussed the patient's case with transfer center and ICU fellow. History and Assessment: 31 y.o. male w/ PMHx of HTN, angioedema and polysubstance abuse (cocaine, EtOH and heroin) transferred from [facility] ED after having presented there with an ogu-sz-ibcmrmwa arrest. He reportedly took fentanyl. EMS administered [...] Result Value CK, Total >220,000 (H) TSH [place] Result Value TSH 7.69 (H) ABO/Rh Typing [...] Validity Result Value T&S only valid at [facility] Triglyceride Result Value Triglycerides 273 T4, free Result Value Free T4 1.19 _Urinalysis with microscopic Result Value Glucose UA Negative Protein UA >=300 (A) Bilirubin UA Moderate (A) Urobilinogen UA Normal pH UA 6.5 Blood UA Large (A) Ketones UA Trace (A) Nitrite UA Positive (A) Leukocytes UA Negative Appearance UA Cloudy (A) Spec [place] UA >=1.030 (A) Color UA Brown (A) [...] arrest for which he is now at [facility] being treated. On exam primary team found [...] yet resuscitated, with elevated Hg 21.5, CK >392989, and K 7.6 which may be contributing to his nonpalpable pulse. His troponins remain elevatd at 0.43. I discussed with the primary team the importance of resuscitation. I discussed that without a patient that can participate in exam diagnosis of compartment syndrome can be more challenging, and we will therefore plan for [place] compartment check when patient back from CT [...] Santos MD - 03/15/2022 6:22 AM EDT [facility] General Surgery History and Physical ID: [...] Arteriogram Lower Extremity 02/06/2022 Nicole Vivas MD [facility] INTERVENTIONL RAD ??? PRO DEBRIDEMENT BONE EA ADDL 20 SQCM 02/08/2022 EACH ADDITIONAL 20 SQ CM, OR PART THEREOF (WRVU 1.8) performed by Jeanette Chatterjee MD at [facility] PAIGE ? ? PRO DEBRIDEMENT BONE MUSCLE &/FASCIA 20 SQ CM/< Left 01/29/2022 DEBRIDEMENT SKIN, SUBCU, MUSCLE, BONE, LOWER EXTREMITY (WRVU 4.1) performed by Tom Valdovinos MD [facility] MAIN OR ? ? PRO DEBRIDEMENT BONE MUSCLE &/FASCIA 20 SQ CM/< Left 01/31/2022 DEBRIDEMENT SKIN, SUBCU, MUSCLE, BONE, LOWER EXTREMITY (WRVU 4.1) performed by Jose Branch MD at [facility] MAIN OR ? ? PRO DEBRIDEMENT BONE MUSCLE &/FASCIA 20 SQ CM/< Left 01/31/2022 DEBRIDEMENT SKIN, SUBCU, MUSCLE, BONE UPPER EXTREMITY (WRVU 4.1) performed by Jose Branch MDat [facility] MAIN OR ? ? PRO DEBRIDEMENT BONE MUSCLE &/FASCIA 20 SQ CM/< Left 02/02/2022 DEBRIDEMENT SKIN, SUBCU, MUSCLE, BONE UPPER EXTREMITY (WRVU 4.1) performed by Hina Starks MD at [facility] OR ? ? PRO DEBRIDEMENT BONE MUSCLE &/FASCIA 20 SQ CM/< Left 02/02/2022 DEBRIDEMENT SKIN, SUBCU, MUSCLE, BONE, LOWER EXTREMITY (WRVU 4.1) performed by Hina Starks MD at [facility] OR ? ? PRO DEBRIDEMENT MUSCLE AND FASCIA 20 SQ CM/< Left 01/26/2022 DEBRIDEMENT SKIN, SUBCU, MUSCLE, LOWER EXTREMITY (WRVU 2.7) performed by Sigifredo Garcia MD at [facility] OR ? ? PRO DEBRIDEMENT MUSCLE AND FASCIA 20 SQ CM/< Left 01/26/2022 DEBRIDEMENT SKIN, SUBCU, MUSCLE, UPPER EXTREMITY (WRVU 2.7) performed by Sigifredo Garcia MD at [facility] OR ? ? PRO DEBRIDEMENT MUSCLE AND FASCIA 20 SQ CM/< Left 02/05/2022 DEBRIDEMENT SKIN, SUBCU, MUSCLE, LOWER EXTREMITY (WRVU 2.7) performed by Tom Valdovinos MD at [facility] OR ? ? PRO DEBRIDEMENT MUSCLE AND FASCIA 20 SQ CM/< Left 02/04/2022 DEBRIDEMENT SKIN, SUBCU, MUSCLE, LOWER EXTREMITY (WRVU 2.7) performed by Sigifredo Garcia MD at [facility] OR ? ? PRO DEBRIDEMENT MUSCLE AND FASCIA 20 SQ CM/< Left 02/15/2022 DEBRIDEMENT SKIN, SUBCU, MUSCLE, UPPER EXTREMITY (WRVU 2.7) performed by Jayme Armstrong MD at [facility] OR ? ? PRO DEBRIDEMENT MUSCLE AND FASCIA 20 SQ CM/< Left 02/19/2022 DEBRIDEMENT SKIN, SUBCU, MUSCLE, LOWER EXTREMITY (WRVU 2.7) performed by Jayme Armstrong MD at [facility] OR ? ? PRO DEBRIDEMENT MUSCLE AND FASCIA 20 SQ CM/< Left 02/22/2022 DEBRIDEMENT SKIN, SUBCU, MUSCLE, LOWER EXTREMITY (WRVU 2.7) performed by Parrish Betancourt MD at [facility] OR ? ? PRO DEBRIDEMENT MUSCLE AND FASCIA 20 SQ CM/< Left 02/24/2022 DEBRIDEMENT SKIN, SUBCU, MUSCLE, LOWER EXTREMITY (WRVU 2.7) performed by Parrish Betancourt MD at [facility] OR ? ? PRO DEBRIDEMENT MUSCLE AND FASCIA 20 SQ CM/< Left 02/26/2022 DEBRIDEMENT SKIN, SUBCU, MUSCLE, UPPER EXTREMITY (WRVU 2.7) performed by Parrish Betancourt MD at [facility] OR ? ? PRO DEBRIDEMENT SUBCUTANEOUS TISSUE 20 SQCM/< Left 02/04/2022 DEBRIDEMENT SKIN AND SUBCU, UPPER EXTREMITY (WRVU 1.01) performed by Sigifredo Garcia MD at [facility] ? ? PRO DEBRIDEMENT SUBCUTANEOUS TISSUE 20 SQCM/< Left 02/08/2022 DEBRIDEMENT SKIN AND SUBCU, LOWER EXTREMITY (WRVU 1.01) performed by Jeanette Chatterjee MD at [facility] OR ? ? PRO DEBRIDEMENT SUBCUTANEOUS TISSUE 20 SQCM/< Left 02/09/2022 DEBRIDEMENT SKIN AND SUBCU, LOWER EXTREMITY (WRVU 1.01) performed by Jeanette Chatterjee MD at [facility] OR ? ? PRO DEBRIDEMENT SUBCUTANEOUS TISSUE 20 SQCM/< Left 02/11/2022 DEBRIDEMENT SKIN AND SUBCU, LOWER EXTREMITY (WRVU 1.01) performed by Parrish Betancourt MD at [facility] OR ? ? PRO DEBRIDEMENT SUBCUTANEOUS TISSUE 20 SQCM/< Left 02/13/2022 DEBRIDEMENT SKIN AND SUBCU, LOWER EXTREMITY (WRVU 1.01) performed by Jeanette Chatterjee MD at [facility] OR ? ? PRO DEBRIDEMENT SUBCUTANEOUS TISSUE 20 SQCM/< Left 02/15/2022 DEBRIDEMENT SKIN AND SUBCU, LOWER EXTREMITY (WRVU 1.01) performed by Jayme Armstrong MD at [facility] OR ? ? PRO DEBRIDEMENT SUBCUTANEOUS TISSUE 20 SQCM/< Left 02/17/2022 DEBRIDEMENT SKIN AND SUBCU, LOWER EXTREMITY (WRVU 1.01) performed by Jayme Armstrong MD at [facility] OR ??? PRO DECOMP FOREARM, 2 COMPART, W/O DEBRIDE Left 01/23/2022 FASCIOTOMY; FOREARM AND\OR WRIST, FLEXOR & EXTENS. COMP (WRVU 10.79) performed by Sigifredo Garcia MD at [facility] MAIN OR ??? PRO DECOMPRESS ANT/LAT+POST LEG CMPART Left 01/23/2022 FASCIOTOMY, LOWER LEG, ALL COMPARTMENTS (WRVU 7.82) performed by Sigifredo Garcia MD at [facility] MAIN OR ??? PRO DRESSING CHANGE UNDER ANESTHESIA Left 02/11/2022 DRESSING CHANGE (FOR OTHER THAN GALLOWAY) UNDER ANES., UPPER EXTREMITY (WRVU 0.86) performed by Parrish Betancourt MD at [facility] MAIN OR ??? PRO DRESSING CHANGE UNDER ANESTHESIA Left 02/13/2022 DRESSING CHANGE (FOR OTHER THAN GALLOWAY) UNDER ANES., UPPER EXTREMITY (WRVU 0.86) performed by Jeanette Chatterjee MD at [facility] MAIN OR ??? PRO DRESSING CHANGE UNDER ANESTHESIA Left 02/17/2022 DRESSING CHANGE (FOR OTHER THAN GALLOWAY) UNDER ANES., UPPER EXTREMITY (WRVU 0.86) performed by Jayme Armstrong MD at [facility] MAIN OR ??? PRO DRESSING CHANGE UNDER ANESTHESIA Left 02/19/2022 DRESSING CHANGE (FOR OTHER THAN GALLOWAY) UNDER ANES., UPPER EXTREMITY (WRVU 0.86) performed by Jayme Armstrong MD at [facility] MAIN OR ??? PRO DRESSING CHANGE UNDER ANESTHESIA Left 02/22/2022 DRESSING CHANGE (FOR OTHER THAN GALLOWAY) UNDER ANES., UPPER EXTREMITY (WRVU 0.86) performed by Parrish Betancourt MD at [facility] OR ??? PRO DRESSING CHANGE UNDER ANESTHESIA Left 02/24/2022 DRESSING CHANGE (FOR OTHER THAN GALLOWAY) UNDER ANES., UPPER EXTREMITY (WRVU 0.86) performed by Parrish Betancourt MD at [facility] MAIN OR ??? PRO DRESSING CHANGE UNDER ANESTHESIA Left 02/26/2022 DRESSING CHANGE (FOR OTHER THAN GALLOWAY) UNDER ANES., LOWER EXTREMITY (WRVU 0.86) performed by Parrish Betancourt MD at [facility] OR ??? PRO DRESSING CHANGE UNDER ANESTHESIA Left 02/26/2022 DRESSING CHANGE (FOR OTHER THAN GALLOWAY) UNDER ANES., UPPER EXTREMITY (WRVU 0.86) performed by Parrish Betancourt MD at [facility] MAIN OR ??? PRO DRESSING CHANGE UNDER ANESTHESIA Left 03/01/2022 DRESSING CHANGE (FOR OTHER THAN GALLOWAY) UNDER ANES., LOWER EXTREMITY (WRVU 0.86) performed by Willie Sanabria MD at [facility] OR ??? PRO DRESSING CHANGE UNDER ANESTHESIA N/A 03/01/2022 DRESSING CHANGE (FOR OTHER THAN GALLOWAY) UNDER ANES., UPPER EXTREMITY (WRVU 0.86) performed by Willie Sanabria MD at [facility] OR ??? PRO DRESSING CHANGE UNDER ANESTHESIA Left 03/13/2022 DRESSING CHANGE (FOR OTHER THAN GALLOWAY) UNDER ANES., UPPER EXTREMITY (WRVU 0.86) performed by Willie Sanabria MD at [facility] OR ??? PRO DRESSING CHANGE UNDER ANESTHESIA Left 03/13/2022 DRESSING CHANGE (FOR OTHER THAN GALLOWAY) UNDER ANES., LOWER EXTREMITY (WRVU 0.86) performed by Willie Sanabria MD at [facility] OR ? ? PRO I&D DEEP ABSCESS BURSA/HEMATOMA THIGH/KNEE REGION Left 02/06/2022 INCISION & DRAINAGE ABSCESS OR HEMATOMA, THIGH, KNEE SUPERFICIAL (WRVU 6.78) performed by Jayme Armstrong MD at [facility] OR ??? PRO INCIS OF HIP/THIGH FASCIA Left 01/23/2022 @FASCIOTOMY,THIGH OR HIP FOR COMPARTMENT SYNDROME (WRVU 12.89) performed by Sigifredo Garcia MD at [facility] OR ??? PRO NEGATIVE PRESSURE WOUND THERAPY, LESS THAN OR EQUAL TO 50 SQCM Left 02/05/2022 DRESSING CHANGE (VAC ASSISTED) UP TO 50SQ.CM (WRVU 0.55) performed by Orville Hennessy MD at [facility] OR ??? PRO NEGATIVE PRESSURE WOUND THERAPY, LESS THAN OR EQUAL TO 50 SQCM Left 02/05/2022 DRESSING CHANGE (VAC ASSISTED) UP TO 50SQ.CM (WRVU 0.55) performed by Tom Valdovinos MD at [facility] OR ??? PRO NEGATIVE PRESSURE WOUND THERAPY, LESS THAN OR EQUAL TO 50 SQCM Left 02/08/2022 DRESSING CHANGE (VAC ASSISTED) UP TO 50SQ.CM (WRVU 0.55) performed by Jeanette Chatterjee MD at [facility] OR ??? PRO NEGATIVE PRESSURE WOUND THERAPY, LESS THAN OR EQUAL TO 50 SQCM Left 03/03/2022 DRESSING CHANGE (VAC ASSISTED) UP TO 50SQ.CM (WRVU 0.55) performed by Willie Sanabria MD at [facility] MAIN OR ??? PRO OPEN TREAT MANDIBLE CONDYLE FX, COMPL 04/27/2013 OPEN TREATMENT, COMPLEX MANDIBLE FX., MULTI APPROACH, W/ FIXATION performed by Kishore Neil MD at [facility] MAIN OR ??? PRO REVISE MEDIAN N/CARPAL TUNNEL SURG Left 01/23/2022 MEDIAN NERVE DECOMPRESSION (CARPAL TUNNEL RELEASE) (WRVU 4.97) performed by Sigifredo Garcia MD at [facility] MAIN OR ??? PRO SEC CLSR SURG WOUND/DEHSN EXTENSIVE/COMPLICATED Left 01/26/2022 SECONDARY CLOSURE SURGICAL WOUND OR DEHISCENCE, EXTENSIVE OR COMPLICATED, UPPER EXTREMITY (WRVU 12.04) performed by Sigiferdo Garcia MD at [facility] MAIN OR ??? PRO SKIN SUB GRAFT TRNK/ARM/LEG AREA UNDER 100SQCM EA ADL 25SQCM Left 03/10/2022 APPL SKIN SUB GRAFT TO LEGS, TO 100 SQ CM; EA ADD'L 25 SQ CM AREA (WRVU 0.33) performed by Parrish Betancourt MD at [facility] MAIN OR ??? PRO SKIN SUB GRAFT TRNK/ARM/LEG AREA UNDER 100SQCM EA ADL 25SQCM Left 03/10/2022 APPL SKIN SUB GRAFT TO ARMS, TO 100 SQ CM; EA ADD'L 25 SQ CM AREA (WRVU 0.33) performed by Parrish Betancourt MD at [facility] MAIN OR Current Facility-Administered Medications: ??? MEROpenem (Merrem) 1 g vial attach to sodium chloride 0.9% 100 mL Mini-Bag Plus, 1 g, Intravenous, Q8H, Nancy Chahal MD, Stopped at 03/15/22 0210 ??? vancomycin (Vancocin) capsule 125 mg, 125 mg, Oral, BID, Floridalma Sandoval MD, 125 mg at 03/14/22 3720 ??? vancomycin (Vancocin) 1 gram in sodium [...] mg/mL) in sodium chloride 0.9% 50 mL COUNTER WAITER infusion, , Intravenous, COUNTER WAITER Only, Jareth Alonzo MD, 50 mg at 03/14/22 1822 ??? diphenhydrAMINE (Benadryl) (50 mg/mL) injection 25 mg, 25 mg, Intravenous, Q30 Min PRN, Jareth Alonzo MD ??? prochlorperazine (Compazine) (5 mg/mL) injection 5 mg, 5 mg, Intravenous, Q30 Min PRN, Jareth Alonzo MD ??? ondansetron (pf) (Zofran) (2 mg/mL) injection 4 mg, 4 mg, Intravenous, Q30 Min PRN, Jareth Alonzo MD ??? naloxone (Narcan) (0.4 mg/mL) injection 0.2 mg, 0.2 mg, Intravenous, Q1 Min PRN, Kinjal Alonzo MD ??? COUNTER WAITER hutton, , Intravenous, Continuous PRN, Jareth Alonzo MD ??? HYDROmorphone (mg) COUNTER WAITER shift total and Settings verification, , Intravenous, 2 Times Daily- COUNTER WAITER Shift Total, Jareth Alonzo MD ??? docusate sodium (Colace) capsule 100 mg, 100 mg, Oral, BID, Jareth Alonzo MD, 100 mg at 03/14/22 2147 ??? heparin (porcine) (5,000 units/1 mL) subcutaneous injection 5,000 Units, 5,000 Units, Subcutaneous, Q8H [place], Jareth Alonzo MD, 5,000 Units at 03/15/22 6979 ??? naloxone (Narcan) (0.4 mg/mL) injection 0.04 [...] Dye MD, 20 mg at 02/16/227 ??? dronabinoL (Marinol) capsule 10 mg, 10 [...] ready to proceed. - meropenem, vancomycin - H Elaine Dos Santos MD 03/15/2022 Elaine Dos Santos MD - 03/10/2022 6:15 AM EDT [facility] General Surgery History and Physical Alix [...] Arteriogram Lower Extremity 02/06/2022 Nicole Vivas MD [facility] INTERVENTIONL RAD ??? PRO DEBRIDEMENT BONE EA ADDL 20 SQCM 02/08/2022 EACH ADDITIONAL 20 SQ CM, OR PART THEREOF (WRVU 1.8) performed by Jeanette Chatterjee MD at [facility] ? ? PRO DEBRIDEMENT BONE MUSCLE &/FASCIA 20 SQ CM/< Left 01/29/2022 DEBRIDEMENT SKIN, SUBCU, MUSCLE, BONE, LOWER EXTREMITY (WRVU 4.1) performed by Tom Valdovinos MD [facility] MAIN OR ? ? PRO DEBRIDEMENT BONE MUSCLE &/FASCIA 20 SQ CM/< Left 01/31/2022 DEBRIDEMENT SKIN, SUBCU, MUSCLE, BONE, LOWER EXTREMITY (WRVU 4.1) performed by Jose Branch MD at [facility] MAIN OR ? ? PRO DEBRIDEMENT BONE MUSCLE &/FASCIA 20 SQ CM/< Left 01/31/2022 DEBRIDEMENT SKIN, SUBCU, MUSCLE, BONE UPPER EXTREMITY (WRVU 4.1) performed by Jose Branch MDat [facility] MAIN OR ? ? PRO DEBRIDEMENT BONE MUSCLE &/FASCIA 20 SQ CM/< Left 02/02/2022 DEBRIDEMENT SKIN, SUBCU, MUSCLE, BONE UPPER EXTREMITY (WRVU 4.1) performed by Hina Starks MD at [facility] MAIN OR ? ? PRO DEBRIDEMENT BONE MUSCLE &/FASCIA 20 SQ CM/< Left 02/02/2022 DEBRIDEMENT SKIN, SUBCU, MUSCLE, BONE, LOWER EXTREMITY (WRVU 4.1) performed by Hina Starks MD at [facility] MAIN OR ? ? PRO DEBRIDEMENT MUSCLE AND FASCIA 20 SQ CM/< Left 01/26/2022 DEBRIDEMENT SKIN, SUBCU, MUSCLE, LOWER EXTREMITY (WRVU 2.7) performed by Sigifredo Garcia MD at [facility] MAIN OR ? ? PRO DEBRIDEMENT MUSCLE AND FASCIA 20 SQ CM/< Left 01/26/2022 DEBRIDEMENT SKIN, SUBCU, MUSCLE, UPPER EXTREMITY (WRVU 2.7) performed by Sigifredo Garcia MD at [facility] MAIN OR ? ? PRO DEBRIDEMENT MUSCLE AND FASCIA 20 SQ CM/< Left 02/05/2022 DEBRIDEMENT SKIN, SUBCU, MUSCLE, LOWER EXTREMITY (WRVU 2.7) performed by Tom Valdovinos MD at [facility] MAIN OR ? ? PRO DEBRIDEMENT MUSCLE AND FASCIA 20 SQ CM/< Left 02/04/2022 DEBRIDEMENT SKIN, SUBCU, MUSCLE, LOWER EXTREMITY (WRVU 2.7) performed by Sigifredo Garcia MD at [facility] OR ? ? PRO DEBRIDEMENT MUSCLE AND FASCIA 20 SQ CM/< Left 02/15/2022 DEBRIDEMENT SKIN, SUBCU, MUSCLE, UPPER EXTREMITY (WRVU 2.7) performed by Jayme Armstrong MD at [facility] OR ? ? PRO DEBRIDEMENT MUSCLE AND FASCIA 20 SQ CM/< Left 02/19/2022 DEBRIDEMENT SKIN, SUBCU, MUSCLE, LOWER EXTREMITY (WRVU 2.7) performed by Jayme Armstrong MD at [facility] OR ? ? PRO DEBRIDEMENT MUSCLE AND FASCIA 20 SQ CM/< Left 02/22/2022 DEBRIDEMENT SKIN, SUBCU, MUSCLE, LOWER EXTREMITY (WRVU 2.7) performed by Parrish Betancourt MD at [facility] OR ? ? PRO DEBRIDEMENT MUSCLE AND FASCIA 20 SQ CM/< Left 02/24/2022 DEBRIDEMENT SKIN, SUBCU, MUSCLE, LOWER EXTREMITY (WRVU 2.7) performed by Parrish Betancourt MD at [facility] OR ? ? PRO DEBRIDEMENT MUSCLE AND FASCIA 20 SQ CM/< Left 02/26/2022 DEBRIDEMENT SKIN, SUBCU, MUSCLE, UPPER EXTREMITY (WRVU 2.7) performed by Parrish Betancourt MD at [facility] OR ? ? PRO DEBRIDEMENT SUBCUTANEOUS TISSUE 20 SQCM/< Left 02/04/2022 DEBRIDEMENT SKIN AND SUBCU, UPPER EXTREMITY (WRVU 1.01) performed by [facility]redo [facility] MD at [facility] [facility] ? ? PRO DEBRIDEMENT SUBCUTANEOUS TISSUE 20 SQCM/< Left 02/08/2022 DEBRIDEMENT SKIN AND SUBCU, LOWER EXTREMITY (WRVU 1.01) performed by Jeanette Chatterjee MD at [facility] ? ? PRO DEBRIDEMENT SUBCUTANEOUS TISSUE 20 SQCM/< Left 02/09/2022 DEBRIDEMENT SKIN AND SUBCU, LOWER EXTREMITY (WRVU 1.01) performed by Jeanette Chatterjee MD at [facility] ? ? PRO DEBRIDEMENT SUBCUTANEOUS TISSUE 20 SQCM/< Left 02/11/2022 DEBRIDEMENT SKIN AND SUBCU, LOWER EXTREMITY (WRVU 1.01) performed by Parrish Betancourt MD at [facility] ? ? PRO DEBRIDEMENT SUBCUTANEOUS TISSUE 20 SQCM/< Left 02/13/2022 DEBRIDEMENT SKIN AND SUBCU, LOWER EXTREMITY (WRVU 1.01) performed by Jeanette Chatterjee MD at [facility] ? ? PRO DEBRIDEMENT SUBCUTANEOUS TISSUE 20 SQCM/< Left 02/15/2022 DEBRIDEMENT SKIN AND SUBCU, LOWER EXTREMITY (WRVU 1.01) performed by Jayme Armstrong MD at [facility] OR ? ? PRO DEBRIDEMENT SUBCUTANEOUS TISSUE 20 SQCM/< Left 02/17/2022 DEBRIDEMENT SKIN AND SUBCU, LOWER EXTREMITY (WRVU 1.01) performed by Jayme Armstrong MD at [facility] OR ??? PRO DECOMP FOREARM, 2 COMPART, W/O DEBRIDE Left 01/23/2022 FASCIOTOMY; FOREARM AND\OR WRIST, FLEXOR & EXTENS. COMP (WRVU 10.79) performed by Sigifredo Garcia MD at [facility] ??? PRO DECOMPRESS ANT/LAT+POST LEG CMPART Left 01/23/2022 FASCIOTOMY, LOWER LEG, ALL COMPARTMENTS (WRVU 7.82) performed by Sigifredo Garcia MD at [facility] ??? PRO DRESSING CHANGE UNDER ANESTHESIA Left 02/11/2022 DRESSING CHANGE (FOR OTHER THAN GALLOWAY) UNDER ANES., UPPER EXTREMITY (WRVU 0.86) performed by Parrish Betancourt MD at [facility] ??? PRO DRESSING CHANGE UNDER ANESTHESIA Left 02/13/2022 DRESSING CHANGE (FOR OTHER THAN GALLOWAY) UNDER ANES., UPPER EXTREMITY (WRVU 0.86) performed by Jeanette Chatterjee MD at [facility] ??? PRO DRESSING CHANGE UNDER ANESTHESIA Left 02/17/2022 DRESSING CHANGE (FOR OTHER THAN GALLOWAY) UNDER ANES., UPPER EXTREMITY (WRVU 0.86) performed by Jayme Armstrong MD at [facility] ??? PRO DRESSING CHANGE UNDER ANESTHESIA Left 02/19/2022 DRESSING CHANGE (FOR OTHER THAN GALLOWAY) UNDER ANES., UPPER EXTREMITY (WRVU 0.86) performed by Jayme Armstrong MD at [facility] ??? PRO DRESSING CHANGE UNDER ANESTHESIA Left 02/22/2022 DRESSING CHANGE (FOR OTHER THAN GALLOWAY) UNDER ANES., UPPER EXTREMITY (WRVU 0.86) performed by Parrish Betancourt MD at [facility] ??? PRO DRESSING CHANGE UNDER ANESTHESIA Left 02/24/2022 DRESSING CHANGE (FOR OTHER THAN GALLOWAY) UNDER ANES., UPPER EXTREMITY (WRVU 0.86) performed by Parrish Betancourt MD at [facility] ??? PRO DRESSING CHANGE UNDER ANESTHESIA Left 02/26/2022 DRESSING CHANGE (FOR OTHER THAN GALLOWAY) UNDER ANES., LOWER EXTREMITY (WRVU 0.86) performed by Parrish Betancourt MD at [facility] ??? PRO DRESSING CHANGE UNDER ANESTHESIA Left 02/26/2022 DRESSING CHANGE (FOR OTHER THAN GALLOWAY) UNDER ANES., UPPER EXTREMITY (WRVU 0.86) performed by Parrish Betancourt MD at [facility] ??? PRO DRESSING CHANGE UNDER ANESTHESIA Left 03/01/2022 DRESSING CHANGE (FOR OTHER THAN GALLOWAY) UNDER ANES., LOWER EXTREMITY (WRVU 0.86) performed by Willie Sanabria MD at [facility] ??? PRO DRESSING CHANGE UNDER ANESTHESIA N/A 03/01/2022 DRESSING CHANGE (FOR OTHER THAN GALLOWAY) UNDER ANES., UPPER EXTREMITY (WRVU 0.86) performed by Willie Sanabria MD at [facility] ? ? PRO I&D DEEP ABSCESS BURSA/HEMATOMA THIGH/KNEE REGION Left 02/06/2022 INCISION & DRAINAGE ABSCESS OR HEMATOMA, THIGH, KNEE SUPERFICIAL (WRVU 6.78) performed by Jayme Armstrong MD at [facility] ??? PRO INCIS OF HIP/THIGH FASCIA Left 01/23/2022 @FASCIOTOMY,THIGH OR HIP FOR COMPARTMENT SYNDROME (WRVU 12.89) performed by Sigifredo Garcia MD at [facility] ??? PRO NEGATIVE PRESSURE WOUND THERAPY, LESS THAN OR EQUAL TO 50 SQCM Left 02/05/2022 DRESSING CHANGE (VAC ASSISTED) UP TO 50SQ.CM (WRVU 0.55) performed by Orville Hennessy MD at [facility] ??? PRO NEGATIVE PRESSURE WOUND THERAPY, LESS THAN OR EQUAL TO 50 SQCM Left 02/05/2022 DRESSING CHANGE (VAC ASSISTED) UP TO 50SQ.CM (WRVU 0.55) performed by Tom Valdovinos MD at [facility] MAIN OR ??? PRO NEGATIVE PRESSURE WOUND THERAPY, LESS THAN OR EQUAL TO 50 SQCM Left 02/08/2022 DRESSING CHANGE (VAC ASSISTED) UP TO 50SQ.CM (WRVU 0.55) performed by Jeanette Chatterjee MD at [facility] MAIN OR ??? PRO NEGATIVE PRESSURE WOUND THERAPY, LESS THAN OR EQUAL TO 50 SQCM Left 03/03/2022 DRESSING CHANGE (VAC ASSISTED) UP TO 50SQ.CM (WRVU 0.55) performed by Willie Sanabria MD at [facility] MAIN OR ??? PRO OPEN TREAT MANDIBLE CONDYLE FX, COMPL 04/27/2013 OPEN TREATMENT, COMPLEX MANDIBLE FX., MULTI APPROACH, W/ FIXATION performed by Kishore Neil MD at [facility] ??? PRO REVISE MEDIAN N/CARPAL TUNNEL SURG Left 01/23/2022 MEDIAN NERVE DECOMPRESSION (CARPAL TUNNEL RELEASE) (WRVU 4.97) performed by Sigifredo Garcia MD at [facility] MAIN OR ??? PRO SEC CLSR SURG WOUND/DEHSN EXTENSIVE/COMPLICATED Left 01/26/2022 SECONDARY CLOSURE SURGICAL WOUND OR DEHISCENCE, EXTENSIVE OR COMPLICATED, UPPER EXTREMITY (WRVU 12.04) performed by Sigifredo Garcia MD at [facility] MAIN OR Current Facility-Administered Medications: ??? [...] bpm 18 (!) 145/93 100 % RA 03/09/221948 37.1 ??C (98.8 ??F) -- -- -- [...] Jenkins MD - 03/03/2022 4:42 AM EDT 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 ? Interval [...] Arteriogram Lower Extremity 02/06/2022 Nicole Vivas MD [facility] INTERVENTIONL RAD ??? PRO DEBRIDEMENT BONE EA ADDL 20 SQCM 02/08/2022 EACH ADDITIONAL 20 SQ CM, OR PART THEREOF (WRVU 1.8) performed by Jeanette Chatterjee MD at [facility] ? ? PRO DEBRIDEMENT BONE MUSCLE &/FASCIA 20 SQ CM/< Left 01/29/2022 DEBRIDEMENT SKIN, SUBCU, MUSCLE, BONE, LOWER EXTREMITY (WRVU 4.1) performed by Tom Valdovinos MD [facility] MAIN OR ? ? PRO DEBRIDEMENT BONE MUSCLE &/FASCIA 20 SQ CM/< Left 01/31/2022 DEBRIDEMENT SKIN, SUBCU, MUSCLE, BONE, LOWER EXTREMITY (WRVU 4.1) performed by Jose Branch MD at [facility] MAIN OR ? ? PRO DEBRIDEMENT BONE MUSCLE &/FASCIA 20 SQ CM/< Left 01/31/2022 DEBRIDEMENT SKIN, SUBCU, MUSCLE, BONE UPPER EXTREMITY (WRVU 4.1) performed by Jose Branch MDat [facility] MAIN OR ? ? PRO DEBRIDEMENT BONE MUSCLE &/FASCIA 20 SQ CM/< Left 02/02/2022 DEBRIDEMENT SKIN, SUBCU, MUSCLE, BONE UPPER EXTREMITY (WRVU 4.1) performed by Hina Starks MD at [facility] MAIN OR ? ? PRO DEBRIDEMENT BONE MUSCLE &/FASCIA 20 SQ CM/< Left 02/02/2022 DEBRIDEMENT SKIN, SUBCU, MUSCLE, BONE, LOWER EXTREMITY (WRVU 4.1) performed by Hina Starks MD at [facility] ? ? PRO DEBRIDEMENT MUSCLE AND FASCIA 20 SQ CM/< Left 01/26/2022 DEBRIDEMENT SKIN, SUBCU, MUSCLE, LOWER EXTREMITY (WRVU 2.7) performed by Sigifredo Garcia MD at [facility] ? ? PRO DEBRIDEMENT MUSCLE AND FASCIA 20 SQ CM/< Left 01/26/2022 DEBRIDEMENT SKIN, SUBCU, MUSCLE, UPPER EXTREMITY (WRVU 2.7) performed by Sigifredo Garcia MD at [facility] ? ? PRO DEBRIDEMENT MUSCLE AND FASCIA 20 SQ CM/< Left 02/05/2022 DEBRIDEMENT SKIN, SUBCU, MUSCLE, LOWER EXTREMITY (WRVU 2.7) performed by Tom Valdovinos MD at [facility] ? ? PRO DEBRIDEMENT MUSCLE AND FASCIA 20 SQ CM/< Left 02/04/2022 DEBRIDEMENT SKIN, SUBCU, MUSCLE, LOWER EXTREMITY (WRVU 2.7) performed by Sigifredo Garcia MD at [facility] ? ? PRO DEBRIDEMENT MUSCLE AND FASCIA 20 SQ CM/< Left 02/15/2022 DEBRIDEMENT SKIN, SUBCU, MUSCLE, UPPER EXTREMITY (WRVU 2.7) performed by Jayme Armstrong MD at [facility] ? ? PRO DEBRIDEMENT MUSCLE AND FASCIA 20 SQ CM/< Left 02/19/2022 DEBRIDEMENT SKIN, SUBCU, MUSCLE, LOWER EXTREMITY (WRVU 2.7) performed by Jayme Armstrong MD at [facility] ? ? PRO DEBRIDEMENT MUSCLE AND FASCIA 20 SQ CM/< Left 02/22/2022 DEBRIDEMENT SKIN, SUBCU, MUSCLE, LOWER EXTREMITY (WRVU 2.7) performed by Parrish Betancourt MD at [facility] ? ? PRO DEBRIDEMENT MUSCLE AND FASCIA 20 SQ CM/< Left 02/24/2022 DEBRIDEMENT SKIN, SUBCU, MUSCLE, LOWER EXTREMITY (WRVU 2.7) performed by Parrish Betancourt MD at [facility] ? ? PRO DEBRIDEMENT MUSCLE AND FASCIA 20 SQ CM/< Left 02/26/2022 DEBRIDEMENT SKIN, SUBCU, MUSCLE, UPPER EXTREMITY (WRVU 2.7) performed by Parrish Betancourt MD at [facility] ? ? PRO DEBRIDEMENT SUBCUTANEOUS TISSUE 20 SQCM/<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 CHANGE (FOR OTHER THAN GALLOWAY) UNDER ANES., UPPER EXTREMITY (WRVU 0.86) performed by Jeanette Chatterjee MD at [facility] OR ??? PRO DRESSING CHANGE UNDER ANESTHESIA Left 02/17/2022 DRESSING CHANGE (FOR OTHER THAN GALLOWAY) UNDER ANES., UPPER EXTREMITY (WRVU 0.86) performed by Jayme Armstrong MD at [facility] OR ??? PRO DRESSING CHANGE UNDER ANESTHESIA Left 02/19/2022 DRESSING CHANGE (FOR OTHER THAN GALLOWAY) UNDER ANES., UPPER EXTREMITY (WRVU 0.86) performed by Jayme Armstrong MD at [facility] MAIN OR ??? PRO DRESSING CHANGE UNDER ANESTHESIA Left 02/22/2022 DRESSING CHANGE (FOR OTHER THAN GALLOWAY) UNDER ANES., UPPER EXTREMITY (WRVU 0.86) performed by Parrish Betancourt MD at [facility] MAIN OR ? ? PRO I&D DEEP ABSCESS BURSA/HEMATOMA THIGH/KNEE REGION Left 02/06/2022 INCISION & DRAINAGE ABSCESS OR HEMATOMA, THIGH, KNEE SUPERFICIAL (WRVU 6.78) performed by Jayme Armstrong MD at [facility] MAIN OR ??? PRO INCIS OF HIP/THIGH FASCIA Left 01/23/2022 @FASCIOTOMY,THIGH OR HIP FOR COMPARTMENT SYNDROME (WRVU 12.89) performed by Sigifredo Garcia MD at [facility] MAIN OR ??? PRO NEGATIVE PRESSURE WOUND THERAPY, LESS THAN OR EQUAL TO 50 SQCM Left 02/05/2022 DRESSING CHANGE (VAC ASSISTED) UP TO 50SQ.CM (WRVU 0.55) performed by Orville Hennessy MD at [facility] MAIN OR ??? PRO NEGATIVE PRESSURE WOUND THERAPY, LESS THAN OR EQUAL TO 50 SQCM Left 02/05/2022 DRESSING CHANGE (VAC ASSISTED) UP TO 50SQ.CM (WRVU 0.55) performed by Tom Valdovinos MD at [facility] MAIN OR ??? PRO NEGATIVE PRESSURE WOUND THERAPY, LESS THAN OR EQUAL TO 50 SQCM Left 02/08/2022 DRESSING CHANGE (VAC ASSISTED) UP TO 50SQ.CM (WRVU 0.55) performed by Jeanette Chatterjee MD at [facility] OR ??? PRO OPEN TREAT MANDIBLE CONDYLE FX, COMPL 04/27/2013 OPEN TREATMENT, COMPLEX MANDIBLE FX., MULTI APPROACH, W/ FIXATION performed by Kishore Neil MD at [facility] MAIN OR ??? PRO REVISE MEDIAN N/CARPAL TUNNEL SURG Left 01/23/2022 MEDIAN NERVE DECOMPRESSION (CARPAL TUNNEL RELEASE) (WRVU 4.97) performed by Sigifredo Garcia MD at [facility] MAIN OR ??? PRO SEC [...] date: 01/23/2022 Attending Physician: Gela Novak MD [facility] General Surgery History and Physical Alix [...] Arteriogram Lower Extremity 02/06/2022 Nicole Vivas MD [facility] INTERVENTIONL RAD ??? PRO DEBRIDEMENT BONE EA ADDL 20 SQCM 02/08/2022 EACH ADDITIONAL 20 SQ CM, OR PART THEREOF (WRVU 1.8) performed by Jeanette Chatterjee MD at [facility] ? ? PRO DEBRIDEMENT BONE MUSCLE &/FASCIA 20 SQ CM/< Left 01/29/2022 DEBRIDEMENT SKIN, SUBCU, MUSCLE, BONE, LOWER EXTREMITY (WRVU 4.1) performed by Tom Valdovinos MD [facility] MAIN OR ? ? PRO DEBRIDEMENT BONE MUSCLE &/FASCIA 20 SQ CM/< Left 01/31/2022 DEBRIDEMENT SKIN, SUBCU, MUSCLE, BONE, LOWER EXTREMITY (WRVU 4.1) performed by Jose Branch MD at [facility] MAIN OR ? ? PRO DEBRIDEMENT BONE MUSCLE &/FASCIA 20 SQ CM/< Left 01/31/2022 DEBRIDEMENT SKIN, SUBCU, MUSCLE, BONE UPPER EXTREMITY (WRVU 4.1) performed by Jose Branch MDat [facility] MAIN OR ? ? PRO DEBRIDEMENT BONE MUSCLE &/FASCIA 20 SQ CM/< Left 02/02/2022 DEBRIDEMENT SKIN, SUBCU, MUSCLE, BONE UPPER EXTREMITY (WRVU 4.1) performed by Hina Starks MD at [facility] MAIN OR ? ? PRO DEBRIDEMENT BONE MUSCLE &/FASCIA 20 SQ CM/< Left 02/02/2022 DEBRIDEMENT SKIN, SUBCU, MUSCLE, BONE, LOWER EXTREMITY (WRVU 4.1) performed by Hina Starks MD at [facility] MAIN OR ? ? PRO DEBRIDEMENT MUSCLE AND FASCIA 20 SQ CM/< Left 01/26/2022 DEBRIDEMENT SKIN, SUBCU, MUSCLE, LOWER EXTREMITY (WRVU 2.7) performed by Sigifredo Garcia MD at [facility] MAIN OR ? ? PRO DEBRIDEMENT MUSCLE AND FASCIA 20 SQ CM/< Left 01/26/2022 DEBRIDEMENT SKIN, SUBCU, MUSCLE, UPPER EXTREMITY (WRVU 2.7) performed by Sigifredo Garcia MD at [facility] MAIN OR ? ? PRO DEBRIDEMENT MUSCLE AND FASCIA 20 SQ CM/< Left 02/05/2022 DEBRIDEMENT SKIN, SUBCU, MUSCLE, LOWER EXTREMITY (WRVU 2.7) performed by Tom Valdovinos MD at [facility] OR ? ? PRO DEBRIDEMENT MUSCLE AND FASCIA 20 SQ CM/< Left 02/04/2022 DEBRIDEMENT SKIN, SUBCU, MUSCLE, LOWER EXTREMITY (WRVU 2.7) performed by Sigifredo Garcia MD at [facility] OR ? ? PRO DEBRIDEMENT MUSCLE AND FASCIA 20 SQ CM/< Left 02/15/2022 DEBRIDEMENT SKIN, SUBCU, MUSCLE, UPPER EXTREMITY (WRVU 2.7) performed by Jayme Armstrong MD at [facility] OR ? ? PRO DEBRIDEMENT MUSCLE AND FASCIA 20 SQ CM/< Left 02/19/2022 DEBRIDEMENT SKIN, SUBCU, MUSCLE, LOWER EXTREMITY (WRVU 2.7) performed by Jayme Armstrong MD at [facility] OR ? ? PRO DEBRIDEMENT SUBCUTANEOUS TISSUE 20 SQCM/< Left 02/04/2022 DEBRIDEMENT SKIN AND SUBCU, UPPER EXTREMITY (WRVU 1.01) performed by Sigifredo Garcia MD [facility] ? ? PRO DEBRIDEMENT SUBCUTANEOUS TISSUE 20 SQCM/< Left 02/08/2022 DEBRIDEMENT SKIN AND SUBCU, LOWER EXTREMITY (WRVU 1.01) performed by Jeanette Chatterjee MD at [facility] OR ? ? PRO DEBRIDEMENT SUBCUTANEOUS TISSUE 20 SQCM/< Left 02/09/2022 DEBRIDEMENT SKIN AND SUBCU, LOWER EXTREMITY (WRVU 1.01) performed by Jeanette Chatterjee MD at [facility] OR ? ? PRO DEBRIDEMENT SUBCUTANEOUS TISSUE 20 SQCM/< Left 02/11/2022 DEBRIDEMENT SKIN AND SUBCU, LOWER EXTREMITY (WRVU 1.01) performed by Parrish Betancourt MD at [facility] OR ? ? PRO DEBRIDEMENT SUBCUTANEOUS TISSUE 20 SQCM/< Left 02/13/2022 DEBRIDEMENT SKIN AND SUBCU, LOWER EXTREMITY (WRVU 1.01) performed by Jeanette Chatterjee MD at [facility] OR ? ? PRO DEBRIDEMENT SUBCUTANEOUS TISSUE 20 SQCM/< Left 02/15/2022 DEBRIDEMENT SKIN AND SUBCU, LOWER EXTREMITY (WRVU 1.01) performed by Jayme Armstrong MD at [facility] OR ? ? PRO DEBRIDEMENT SUBCUTANEOUS TISSUE 20 SQCM/< Left 02/17/2022 DEBRIDEMENT SKIN AND SUBCU, LOWER EXTREMITY (WRVU 1.01) performed by Jayme Armstrong MD at [facility] OR ??? PRO DECOMP FOREARM, 2 COMPART, W/O DEBRIDE Left 01/23/2022 FASCIOTOMY; FOREARM AND\OR WRIST, FLEXOR & EXTENS. COMP (WRVU 10.79) performed by Sigifredo Garcia MD at [facility] OR ??? PRO DECOMPRESS ANT/LAT+POST LEG CMPART Left 01/23/2022 FASCIOTOMY, LOWER LEG, ALL COMPARTMENTS (WRVU 7.82) performed by Sigifredo Garcia MD at [facility] OR ??? PRO DRESSING CHANGE UNDER ANESTHESIA Left 02/11/2022 DRESSING CHANGE (FOR OTHER THAN GALLOWAY) UNDER ANES., UPPER EXTREMITY (WRVU 0.86) performed by Parrish Betancourt MD at [facility] OR ??? PRO DRESSING CHANGE UNDER ANESTHESIA Left 02/13/2022 DRESSING CHANGE (FOR OTHER THAN GALLOWAY) UNDER ANES., UPPER EXTREMITY (WRVU 0.86) performed by Jeanette Chatterjee MD at [facility] OR ??? PRO DRESSING CHANGE UNDER ANESTHESIA Left 02/17/2022 DRESSING CHANGE (FOR OTHER THAN GALLOWAY) UNDER ANES., UPPER EXTREMITY (WRVU 0.86) performed by Jayme Armstrong MD at [facility] OR ??? PRO DRESSING CHANGE UNDER ANESTHESIA Left 02/19/2022 DRESSING CHANGE (FOR OTHER THAN GALLOWAY) UNDER ANES., UPPER EXTREMITY (WRVU 0.86) performed by Jayme Armstrong MD at [facility] OR ? ? PRO I&D DEEP ABSCESS BURSA/HEMATOMA THIGH/KNEE REGION Left 02/06/2022 INCISION & DRAINAGE ABSCESS OR HEMATOMA, THIGH, KNEE SUPERFICIAL (WRVU 6.78) performed by Jayme Armstrong MD at [facility] OR ??? PRO INCIS OF HIP/THIGH FASCIA Left 01/23/2022 @FASCIOTOMY,THIGH OR HIP FOR COMPARTMENT SYNDROME (WRVU 12.89) performed by Sigifredo Garcia MD at [facility] OR ??? PRO NEGATIVE PRESSURE WOUND THERAPY, [...] 0.55) performed by Tom Valdovinos MD at [facility] MAIN OR ??? PRO NEGATIVE PRESSURE WOUND THERAPY, LESS THAN OR EQUAL TO 50 SQCM Left 02/08/2022 DRESSING CHANGE (VAC ASSISTED) UP TO 50SQ.CM (WRVU 0.55) performed by Jeanette Chatterjee MD at [facility] MAIN OR ??? PRO OPEN TREAT MANDIBLE CONDYLE FX, COMPL 04/27/2013 OPEN TREATMENT, COMPLEX MANDIBLE FX., MULTI APPROACH, W/ FIXATION performed by Kishore Neil MD at [facility] OR ??? PRO REVISE MEDIAN N/CARPAL TUNNEL SURG Left 01/23/2022 MEDIAN NERVE DECOMPRESSION (CARPAL TUNNEL RELEASE) (WRVU 4.97) performed by Sigifredo Garcia MD at [facility] MAIN OR ??? PRO SEC CLSR SURG WOUND/DEHSN EXTENSIVE/COMPLICATED Left 01/26/2022 SECONDARY CLOSURE SURGICAL WOUND OR DEHISCENCE, EXTENSIVE OR COMPLICATED, UPPER EXTREMITY (WRVU 12.04) performed by Sigifredo Garcia MD at [facility] MAIN OR Current Facility-Administered Medications: ??? [...] 10,000 Units, Intercatheter, Once in dialysis PRN, Kaityln Rock MD ??? dronabinoL (Marinol) capsule 10 [...] 2 tablet, 2 tablet, Oral, BID, Kaitlyn Rcok MD, 2 tablet at 02/21/22 2101 ??? [...] date: 01/23/2022 Attending Physician: Gela Novak MD [facility] General Surgery History and Physical Alix [...] Arteriogram Lower Extremity 02/06/2022 Nicole Vivas MD [facility] INTERVENTIONL RAD ??? PRO DEBRIDEMENT BONE EA ADDL 20 SQCM 02/08/2022 EACH ADDITIONAL 20 SQ CM, OR PART THEREOF (WRVU 1.8) performed by Jeanette Chatterjee MD at [facility] ? ? PRO DEBRIDEMENT BONE MUSCLE &/FASCIA 20 SQ CM/< Left 01/29/2022 DEBRIDEMENT SKIN, SUBCU, MUSCLE, BONE, LOWER EXTREMITY (WRVU 4.1) performed by Tom Valdovinos MD [facility] MAIN OR ? ? PRO DEBRIDEMENT BONE MUSCLE &/FASCIA 20 SQ CM/< Left 01/31/2022 DEBRIDEMENT SKIN, SUBCU, MUSCLE, BONE, LOWER EXTREMITY (WRVU 4.1) performed by Jose Branch MD at [facility] MAIN OR ? ? PRO DEBRIDEMENT BONE MUSCLE &/FASCIA 20 SQ CM/< Left 01/31/2022 DEBRIDEMENT SKIN, SUBCU, MUSCLE, BONE UPPER EXTREMITY (WRVU 4.1) performed by Jose Branch MDat [facility] MAIN OR ? ? PRO DEBRIDEMENT BONE MUSCLE &/FASCIA 20 SQ CM/< Left 02/02/2022 DEBRIDEMENT SKIN, SUBCU, MUSCLE, BONE UPPER EXTREMITY (WRVU 4.1) performed by Hina Starks MD at [facility] MAIN OR ? ? PRO DEBRIDEMENT BONE MUSCLE &/FASCIA 20 SQ CM/< Left 02/02/2022 DEBRIDEMENT SKIN, SUBCU, MUSCLE, BONE, LOWER EXTREMITY (WRVU 4.1) performed by Hina Starks MD at [facility] MA[facility] OR ? ? PRO DEBRIDEMENT MUSCLE AND FASCIA 20 SQ CM/< Left 01/26/2022 DEBRIDEMENT SKIN, SUBCU, MUSCLE, LOWER EXTREMITY (WRVU 2.7) performed by Sigifredo Garcia MD at [facility] MA[facility] OR ? ? PRO DEBRIDEMENT MUSCLE AND FASCIA 20 SQ CM/< Left 01/26/2022 DEBRIDEMENT SKIN, SUBCU, MUSCLE, UPPER EXTREMITY (WRVU 2.7) performed by Sigifredo Garcia MD at [facility] OR ? ? PRO DEBRIDEMENT MUSCLE AND FASCIA 20 SQ CM/< Left 02/05/2022 DEBRIDEMENT SKIN, SUBCU, MUSCLE, LOWER EXTREMITY (WRVU 2.7) performed by Tom Valdovinos MD at [facility] OR ? ? PRO DEBRIDEMENT MUSCLE AND FASCIA 20 SQ CM/< Left 02/04/2022 DEBRIDEMENT SKIN, SUBCU, MUSCLE, LOWER EXTREMITY (WRVU 2.7) performed by Sigifredo Garcia MD at [facility] OR ? ? PRO DEBRIDEMENT MUSCLE AND FASCIA 20 SQ CM/< Left 02/15/2022 DEBRIDEMENT SKIN, SUBCU, MUSCLE, UPPER EXTREMITY (WRVU 2.7) performed by Jayme Armstrong MD at [facility] OR ? ? PRO DEBRIDEMENT SUBCUTANEOUS TISSUE 20 SQCM/< Left 02/04/2022 DEBRIDEMENT SKIN AND SUBCU, UPPER EXTREMITY (WRVU 1.01) performed by Sig[facility]red[facility] ? ? PRO DEBRIDEMENT SUBCUTANEOUS TISSUE 20 SQCM/< Left 02/08/2022 DEBRIDEMENT SKIN AND SUBCU, LOWER EXTREMITY (WRVU 1.01) performed by Jeanette Chtaterjee MD at [facility] OR ? ? PRO DEBRIDEMENT SUBCUTANEOUS TISSUE 20 SQCM/< Left 02/09/2022 DEBRIDEMENT SKIN AND SUBCU, LOWER EXTREMITY (WRVU 1.01) performed by Jeanette Chatterjee MD at [facility] OR ? ? PRO DEBRIDEMENT SUBCUTANEOUS TISSUE 20 SQCM/< Left 02/11/2022 DEBRIDEMENT SKIN AND SUBCU, LOWER EXTREMITY (WRVU 1.01) performed by Parrish Betancourt MD at [facility] OR ? ? PRO DEBRIDEMENT SUBCUTANEOUS TISSUE 20 SQCM/< Left 02/13/2022 DEBRIDEMENT SKIN AND SUBCU, LOWER EXTREMITY (WRVU 1.01) performed by Jeanette Chatterjee MD at [facility] OR ? ? PRO DEBRIDEMENT SUBCUTANEOUS TISSUE 20 SQCM/< Left 02/15/2022 DEBRIDEMENT SKIN AND SUBCU, LOWER EXTREMITY (WRVU 1.01) performed by Jayme Armstrong MD at [facility] OR ? ? PRO DEBRIDEMENT SUBCUTANEOUS TISSUE 20 SQCM/< Left 02/17/2022 DEBRIDEMENT SKIN AND SUBCU, LOWER EXTREMITY (WRVU 1.01) [facility]?? PRO DECOMP FOREARM, 2 COMPART, W/O DEBRIDE Left 01/23/2022 FASCIOTOMY; FOREARM AND\OR WRIST, FLEXOR & EXTENS. COMP (WRVU 10.79) performed by Sigifredo Garcia MD at [facility] OR ??? PRO DECOMPRESS ANT/LAT+POST LEG CMPART Left 01/23/2022 FASCIOTOMY, LOWER LEG, ALL COMPARTMENTS (WRVU 7.82) performed by Sigifredo Garcia MD at [facility] OR ??? PRO DRESSING CHANGE UNDER ANESTHESIA Left 02/11/2022 DRESSING CHANGE (FOR OTHER THAN GALLOWAY) UNDER ANES., UPPER EXTREMITY (WRVU 0.86) performed by Parrish Betancourt MD at [facility] OR ??? PRO DRESSING CHANGE UNDER ANESTHESIA Left 02/13/2022 DRESSING CHANGE (FOR OTHER THAN GALLOWAY) UNDER ANES., UPPER EXTREMITY (WRVU 0.86) performed by Jeanette Chatterjee MD at [facility] OR ??? PRO DRESSING CHANGE UNDER ANESTHESIA Left 02/17/2022 DRESSING CHANGE (FOR OTHER THAN GALLOWAY) UNDER ANES., UPPER EXTREMITY (WRVU 0.86) performed by Jayme Armstrong MD at [facility] OR ? ? PRO I&D DEEP ABSCESS BURSA/HEMATOMA THIGH/KNEE REGION Left 02/06/2022 INCISION & DRAINAGE ABSCESS OR HEMATOMA, THIGH, KNEE SUPERFICIAL (WRVU 6.78) performed by Jayme Armstrong MD at [facility] OR ??? PRO INCIS OF HIP/THIGH FASCIA Left 01/23/2022 @FASCIOTOMY,THIGH OR HIP FOR COMPARTMENT SYNDROME (WRVU 12.89) performed by Sigifredo Garcia MD at [facility] OR ??? PRO NEGATIVE PRESSURE WOUND THERAPY, LESS THAN OR EQUAL TO 50 SQCM Left 02/05/2022 DRESSING CHANGE (VAC ASSISTED) UP TO 50SQ.CM (WRVU 0.55) performed by Orville Hennessy MD at [facility] OR ??? PRO NEGATIVE PRESSURE WOUND THERAPY, LESS THAN OR EQUAL TO 50 SQCM Left 02/05/2022 DRESSING CHANGE (VAC ASSISTED) UP TO 50SQ.CM (WRVU 0.55) performed by Tom Valdovinos MD at [facility] MAIN OR ??? PRO NEGATIVE PRESSURE WOUND THERAPY, LESS THAN OR EQUAL TO 50 SQCM Left 02/08/2022 DRESSING CHANGE (VAC ASSISTED) UP TO 50SQ.CM (WRVU 0.55) performed by Jeanette Chatterjee MD at [facility] MAIN OR ??? PRO OPEN TREAT MANDIBLE CONDYLE FX, COMPL 04/27/2013 OPEN TREATMENT, COMPLEX MANDIBLE FX., MULTI APPROACH, W/ FIXATION performed by Kishore Neil MD at [facility] MAIN OR ??? PRO REVISE MEDIAN N/CARPAL TUNNEL SURG Left 01/23/2022 MEDIAN NERVE DECOMPRESSION (CARPAL TUNNEL RELEASE) (WRVU 4.97) performed by Sigifredo Garcia MD at [facility] MAIN OR ??? PRO SEC CLSR SURG WOUND/DEHSN EXTENSIVE/COMPLICATED Left 01/26/2022 SECONDARY CLOSURE SURGICAL WOUND OR DEHISCENCE, EXTENSIVE OR COMPLICATED, UPPER EXTREMITY (WRVU 12.04) performed by Sigifredo Garcia MD at [facility] MAIN OR Current Facility-Administered Medications: ??? [...] 02/18/222022 ??? vitamin B Complex-vitamin C-folic Acid (Eileen-scott) [...] Collette Dye MD, 1,000 mcg at 02/18/22 08 ??? thiamine (Vitamin B1) tablet 100 mg, [...] date: 01/23/2022 Attending Physician: Gela Novak MD [facility] General Surgery History and Physical Alix [...] date: 01/23/2022 Attending Physician: Parrish Betancourt MD [facility] General Surgery History and Physical Alix [...] Arteriogram Lower Extremity 02/06/2022 Nicole Vivas MD [facility] INTERVENTIONL RAD ??? PRO DEBRIDEMENT BONE EA ADDL 20 SQCM 02/08/2022 EACH ADDITIONAL 20 SQ CM, OR PART THEREOF (WRVU 1.8) performed by Jeanette Chatterjee MD at [facility] ? ? PRO DEBRIDEMENT BONE MUSCLE &/FASCIA 20 SQ CM/< Left 01/29/2022 DEBRIDEMENT SKIN, SUBCU, MUSCLE, BONE, LOWER EXTREMITY (WRVU 4.1) performed by Tom Valdovinos MD [facility] MAIN OR ? ? PRO DEBRIDEMENT BONE MUSCLE &/FASCIA 20 SQ CM/< Left 01/31/2022 DEBRIDEMENT SKIN, SUBCU, MUSCLE, BONE, LOWER EXTREMITY (WRVU 4.1) performed by Jose Branch MD at [facility] MAIN OR ? ? PRO DEBRIDEMENT BONE MUSCLE &/FASCIA 20 SQ CM/< Left 01/31/2022 DEBRIDEMENT SKIN, SUBCU, MUSCLE, BONE UPPER EXTREMITY (WRVU 4.1) performed by Jose Branch MDat [facility] MAIN OR ? ? PRO DEBRIDEMENT BONE MUSCLE &/FASCIA 20 SQ CM/< Left 02/02/2022 DEBRIDEMENT SKIN, SUBCU, MUSCLE, BONE UPPER EXTREMITY (WRVU 4.1) performed by Hina Starks MD at [facility] OR ? ? PRO DEBRIDEMENT BONE MUSCLE &/FASCIA 20 SQ CM/< Left 02/02/2022 DEBRIDEMENT SKIN, SUBCU, MUSCLE, BONE, LOWER EXTREMITY (WRVU 4.1) performed by Hina Starks MD at [facility] OR ? ? PRO DEBRIDEMENT MUSCLE AND FASCIA 20 SQ CM/< Left 01/26/2022 DEBRIDEMENT SKIN, SUBCU, MUSCLE, LOWER EXTREMITY (WRVU 2.7) performed by Sigifredo Garcia MD at [facility] OR ? ? PRO DEBRIDEMENT MUSCLE AND FASCIA 20 SQ CM/< Left 01/26/2022 DEBRIDEMENT SKIN, SUBCU, MUSCLE, UPPER EXTREMITY (WRVU 2.7) performed by Sigifredo Garcia MD at [facility] OR ? ? PRO DEBRIDEMENT MUSCLE AND FASCIA 20 SQ CM/< Left 02/05/2022 DEBRIDEMENT SKIN, SUBCU, MUSCLE, LOWER EXTREMITY (WRVU 2.7) performed by Tom Valdovinos MD at [facility] OR ? ? PRO DEBRIDEMENT MUSCLE AND FASCIA 20 SQ CM/< Left 02/04/2022 DEBRIDEMENT SKIN, SUBCU, MUSCLE, LOWER EXTREMITY (WRVU 2.7) performed by Sigifredo Garcia MD at [facility] OR ? ? PRO DEBRIDEMENT SUBCUTANEOUS TISSUE 20 SQCM/< Left 02/04/2022 DEBRIDEMENT SKIN AND SUBCU, UPPER EXTREMITY (WRVU 1.01) performed by Sigifredo Garcia MD at [facility] ? ? PRO DEBRIDEMENT SUBCUTANEOUS TISSUE 20 SQCM/< Left 02/08/2022 DEBRIDEMENT SKIN AND SUBCU, LOWER EXTREMITY (WRVU 1.01) performed by Jeanette Chatterjee MD at [facility] OR ? ? PRO DEBRIDEMENT SUBCUTANEOUS TISSUE 20 SQCM/< Left 02/09/2022 DEBRIDEMENT SKIN AND SUBCU, LOWER EXTREMITY (WRVU 1.01) performed by Jeanette Chatterjee MD at [facility] OR ? ? PRO DEBRIDEMENT SUBCUTANEOUS TISSUE 20 SQCM/< Left 02/11/2022 DEBRIDEMENT SKIN AND SUBCU, LOWER EXTREMITY (WRVU 1.01) performed by Parrish Betancourt MD at [facility] OR ? ? PRO DEBRIDEMENT SUBCUTANEOUS TISSUE 20 SQCM/< Left 02/13/2022 DEBRIDEMENT SKIN AND SUBCU, LOWER EXTREMITY (WRVU 1.01) performed by Jeanette Chatterjee MD at [facility] OR ??? PRO DECOMP FOREARM, 2 COMPART, W/O DEBRIDE Left 01/23/2022 FASCIOTOMY; FOREARM AND\OR WRIST, FLEXOR & EXTENS. COMP (WRVU 10.79) performed by Sigifredo Garcia MD at [facility] OR ??? PRO DECOMPRESS ANT/LAT+POST LEG CMPART Left 01/23/2022 FASCIOTOMY, LOWER LEG, ALL COMPARTMENTS (WRVU 7.82) performed by Sigifredo Garcia MD at [facility] OR ??? PRO DRESSING CHANGE UNDER ANESTHESIA Left 02/11/2022 DRESSING CHANGE (FOR OTHER THAN GALLOWAY) UNDER ANES., UPPER EXTREMITY (WRVU 0.86) performed by Parrish Betancourt MD at [facility] OR ??? PRO DRESSING CHANGE UNDER ANESTHESIA Left 02/13/2022 DRESSING CHANGE (FOR OTHER THAN GALLOWAY) UNDER ANES., UPPER EXTREMITY (WRVU 0.86) performed by Jeanette Chatterjee MD at [facility] OR ? ? PRO I&D DEEP ABSCESS BURSA/HEMATOMA THIGH/KNEE REGION Left 02/06/2022 INCISION & DRAINAGE ABSCESS OR HEMATOMA, THIGH, KNEE SUPERFICIAL (WRVU 6.78) performed by Jayme Armstrong MD at [facility] OR ??? PRO INCIS OF HIP/THIGH FASCIA Left 01/23/2022 @FASCIOTOMY,THIGH OR HIP FOR COMPARTMENT SYNDROME (WRVU 12.89) performed by Sigifredo Garcia MD at [facility] OR ??? PRO NEGATIVE PRESSURE WOUND THERAPY, LESS THAN OR EQUAL TO 50 SQCM Left 02/05/2022 DRESSING CHANGE (VAC ASSISTED) UP TO 50SQ.CM (WRVU 0.55) performed by Orville Hennessy MD at [facility] OR ??? PRO NEGATIVE PRESSURE WOUND THERAPY, LESS THAN OR EQUAL TO 50 SQCM Left 02/05/2022 DRESSING CHANGE (VAC ASSISTED) UP TO 50SQ.CM (WRVU 0.55) performed by Tom Valdovinos MD at [facility] OR ??? PRO NEGATIVE PRESSURE WOUND THERAPY, LESS THAN OR EQUAL TO 50 SQCM Left 02/08/2022 DRESSING CHANGE (VAC ASSISTED) UP TO 50SQ.CM (WRVU 0.55) performed by Jeanette Chatterjee MD at [facility] MAIN OR ??? PRO OPEN TREAT MANDIBLE CONDYLE FX, COMPL 04/27/2013 OPEN TREATMENT, COMPLEX MANDIBLE FX., MULTI APPROACH, W/ FIXATION performed by Kishore Neil MD at [facility] MAIN OR ??? PRO REVISE MEDIAN N/CARPAL TUNNEL SURG Left 01/23/2022 MEDIAN NERVE DECOMPRESSION (CARPAL TUNNEL RELEASE) (WRVU 4.97) performed by Sigifredo Garcia MD at [facility] MAIN OR ??? PRO SEC CLSR SURG WOUND/DEHSN EXTENSIVE/COMPLICATED Left 01/26/2022 SECONDARY CLOSURE SURGICAL WOUND OR DEHISCENCE, EXTENSIVE OR COMPLICATED, UPPER EXTREMITY (WRVU 12.04) performed by Sigifredo Garcia MD at [facility] MAIN OR Current Facility-Administered Medications: ??? [...] Oral, Q3H PRN, 15 mg at 02/15/22 7259 OR oxyCODONE (Roxicodone) tablet 20 mg, 20 mg,Oral, Q3H PRN, Veto Hidalgo MD, 20 mg at 02/14/22 2302 ??? ceFEPime (Maxipime) 1g vial attach to sodium chloride 0.9% 100 mL Mini-Bag Plus, 1 g, Intravenous, Q24H, Parrish Betancourt MD, Stopped at 02/14/22 7544 ??? ascorbic acid (Vitamin C) (Vitamin C) [...] Q4H PRN,Veto Hidalgo MD, 0.6 mg at 02/14/224 ??? heparin (porcine) (5,000 units/1 mL) subcutaneous [...] date: 01/23/2022 Attending Physician: Parrish Betancourt MD [facility] General Surgery History and Physical Alix [...] Arteriogram Lower Extremity 02/06/2022 Nicole Vivas MD [facility] INTERVENTIONL RAD ??? PRO DEBRIDEMENT BONE EA ADDL 20 SQCM 02/08/2022 EACH ADDITIONAL 20 SQ CM, OR PART THEREOF (WRVU 1.8) performed by Jeanette Chatterjee MD at [facility] ? ? PRO DEBRIDEMENT BONE MUSCLE &/FASCIA 20 SQ CM/< Left 01/29/2022 DEBRIDEMENT SKIN, SUBCU, MUSCLE, BONE, LOWER EXTREMITY (WRVU 4.1) performed by Tom Valdovinos MD [facility] MAIN OR ? ? PRO DEBRIDEMENT BONE MUSCLE &/FASCIA 20 SQ CM/< Left 01/31/2022 DEBRIDEMENT SKIN, SUBCU, MUSCLE, BONE, LOWER EXTREMITY (WRVU 4.1) performed by Jose Branch MD at [facility] MAIN OR ? ? PRO DEBRIDEMENT BONE MUSCLE &/FASCIA 20 SQ CM/< Left 01/31/2022 DEBRIDEMENT SKIN, SUBCU, MUSCLE, BONE UPPER EXTREMITY (WRVU 4.1) performed by Jose Branch MDat [facility] MAIN OR ? ? PRO DEBRIDEMENT BONE MUSCLE &/FASCIA 20 SQ CM/< Left 02/02/2022 DEBRIDEMENT SKIN, SUBCU, MUSCLE, BONE UPPER EXTREMITY (WRVU 4.1) performed by Hina Starks MD at [facility] MAIN OR ? ? PRO DEBRIDEMENT BONE MUSCLE &/FASCIA 20 SQ CM/< Left 02/02/2022 DEBRIDEMENT SKIN, SUBCU, MUSCLE, BONE, LOWER EXTREMITY (WRVU 4.1) performed by Hina Starks MD at [facility] MAIN OR ? ? PRO DEBRIDEMENT MUSCLE AND FASCIA 20 SQ CM/< Left 01/26/2022 DEBRIDEMENT SKIN, SUBCU, MUSCLE, LOWER EXTREMITY (WRVU 2.7) performed by Sigifredo Gacria MD at [facility] MAIN OR ? ? PRO DEBRIDEMENT MUSCLE AND FASCIA 20 SQ CM/< Left 01/26/2022 DEBRIDEMENT SKIN, SUBCU, MUSCLE, UPPER EXTREMITY (WRVU 2.7) performed by Sigifredo Garcia MD at [facility] MAIN OR ? ? PRO DEBRIDEMENT MUSCLE AND FASCIA 20 SQ CM/< Left 02/05/2022 DEBRIDEMENT SKIN, SUBCU, MUSCLE, LOWER EXTREMITY (WRVU 2.7) performed by Tom Valdovinos MD at [facility] MAIN OR ? ? PRO DEBRIDEMENT MUSCLE AND FASCIA 20 SQ CM/< Left 02/04/2022 DEBRIDEMENT SKIN, SUBCU, MUSCLE, LOWER EXTREMITY (WRVU 2.7) performed by Sigifredo Garcia MD at [facility] OR ? ? PRO DEBRIDEMENT SUBCUTANEOUS TISSUE 20 SQCM/< Left 02/04/2022 DEBRIDEMENT SKIN AND SUBCU, UPPER EXTREMITY (WRVU 1.01) performed by Sigifredo Garcia MD at [facility] ? ? PRO DEBRIDEMENT SUBCUTANEOUS TISSUE 20 SQCM/< Left 02/08/2022 DEBRIDEMENT SKIN AND SUBCU, LOWER EXTREMITY (WRVU 1.01) performed by Jeanette Chatterjee MD at [facility] OR ? ? PRO DEBRIDEMENT SUBCUTANEOUS TISSUE 20 SQCM/< Left 02/09/2022 DEBRIDEMENT SKIN AND SUBCU, LOWER EXTREMITY (WRVU 1.01) performed by Jeanette Chatterjee MD at [facility] OR ? ? PRO DEBRIDEMENT SUBCUTANEOUS TISSUE 20 SQCM/< Left 02/11/2022 DEBRIDEMENT SKIN AND SUBCU, LOWER EXTREMITY (WRVU 1.01) performed by Parrish Betancourt MD at [facility] OR ??? PRO DECOMP FOREARM, 2 COMPART, W/O DEBRIDE Left 01/23/2022 FASCIOTOMY; FOREARM AND\OR WRIST, FLEXOR & EXTENS. COMP (WRVU 10.79) performed by Sigifredo Garcia MD at [facility] OR ??? PRO DECOMPRESS ANT/LAT+POST LEG CMPART Left 01/23/2022 FASCIOTOMY, LOWER LEG, ALL COMPARTMENTS (WRVU 7.82) performed by Sigifredo Garcia MD at [facility] OR ??? PRO DRESSING CHANGE UNDER ANESTHESIA Left 02/11/2022 DRESSING CHANGE (FOR OTHER THAN GALLOWAY) UNDER ANES., UPPER EXTREMITY (WRVU 0.86) performed by Parrish Betancourt MD at [facility] OR ? ? PRO I&D DEEP ABSCESS BURSA/HEMATOMA THIGH/KNEE REGION Left 02/06/2022 INCISION & DRAINAGE ABSCESS OR HEMATOMA, THIGH, KNEE SUPERFICIAL (WRVU 6.78) performed by Jayme Armstrong MD at [facility] OR ??? PRO INCIS OF HIP/THIGH FASCIA Left 01/23/2022 @FASCIOTOMY,THIGH OR HIP FOR COMPARTMENT SYNDROME (WRVU 12.89) performed by Sigifredo Garcia MD at [facility] OR ??? PRO NEGATIVE PRESSURE WOUND THERAPY, LESS THAN OR EQUAL TO 50 SQCM Left 02/05/2022 DRESSING CHANGE (VAC ASSISTED) UP TO 50SQ.CM (WRVU 0.55) performed by Orville Hennessy MD at [facility] OR ??? PRO NEGATIVE PRESSURE WOUND THERAPY, LESS THAN OR EQUAL TO 50 SQCM Left 02/05/2022 DRESSING CHANGE (VAC ASSISTED) UP TO 50SQ.CM (WRVU 0.55) performed by Tom Valdovinos MD at [facility] MAIN OR ??? PRO NEGATIVE PRESSURE WOUND THERAPY, LESS THAN OR EQUAL TO 50 SQCM Left 02/08/2022 DRESSING CHANGE (VAC ASSISTED) UP TO 50SQ.CM (WRVU 0.55) performed by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 #polysubstance abuse - Analgesia: acetaminophen, dilaudid COUNTER WAITER, lidocaine patches 5% x3 - dronabinol 10 [...] additions/exceptions: See my separate documentation. Dunia Han, DO - 02/05/2022 9:32 PM EDT Critical Care - Admission Note History of Present Illness: Alix Holland is a 31 y.o. 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 He is admitted tonight to the SICU due to hemorrhagic shock in the setting of ongoing bleeding from a LLE fasciotomy. He was admitted initially to the MICU 01/23 s/p VT arrest at [facility] in the setting ofbeing down for [...] performed by Tom Valdovinos MD [facility] MAIN OR ? ? PRO DEBRIDEMENT BONE MUSCLE &/FASCIA 20 SQ CM/< Left 01/31/2022 DEBRIDEMENT SKIN, SUBCU, MUSCLE, BONE, LOWER EXTREMITY (WRVU 4.1) performed by Jose Branch MD at [facility] MAIN OR ? ? PRO DEBRIDEMENT BONE MUSCLE &/FASCIA 20 SQ CM/< Left 01/31/2022 DEBRIDEMENT SKIN, SUBCU, MUSCLE, BONE UPPER EXTREMITY (WRVU 4.1) performed by Jose Branch MDat [facility] MAIN OR ? ? PRO DEBRIDEMENT BONE MUSCLE &/FASCIA 20 SQ CM/< Left 02/02/2022 DEBRIDEMENT SKIN, SUBCU, MUSCLE, BONE UPPER EXTREMITY (WRVU 4.1) performed by Hina Starks MD at [facility] MAIN OR ? ? PRO DEBRIDEMENT BONE MUSCLE &/FASCIA 20 SQ CM/< Left 02/02/2022 DEBRIDEMENT SKIN, SUBCU, MUSCLE, BONE, LOWER EXTREMITY (WRVU 4.1) performed by Hina Starks MD at [facility] MAIN OR ? ? PRO DEBRIDEMENT MUSCLE AND FASCIA 20 SQ CM/< Left 01/26/2022 DEBRIDEMENT SKIN, SUBCU, MUSCLE, LOWER EXTREMITY (WRVU 2.7) performed by Sigifredo Garcia MD at [facility] MAIN OR ? ? PRO DEBRIDEMENT MUSCLE AND FASCIA 20 SQ CM/< Left 01/26/2022 DEBRIDEMENT SKIN, SUBCU, MUSCLE, UPPER EXTREMITY (WRVU 2.7) performed by Sigifredo Garcia MD at [facility] MAIN OR ??? PRO DECOMP FOREARM, 2 COMPART, W/O DEBRIDE Left 01/23/2022 FASCIOTOMY; FOREARM AND\OR WRIST, FLEXOR & EXTENS. COMP (WRVU 10.79) performed by Sigifredo Garcia MD at [facility] OR ??? PRO DECOMPRESS ANT/LAT+POST LEG CMPART Left 01/23/2022 FASCIOTOMY, LOWER LEG, ALL COMPARTMENTS (WRVU 7.82) performed by Sigifredo Garcia MD at [facility] MAIN OR ??? PRO INCIS OF HIP/THIGH FASCIA Left 01/23/2022 @FASCIOTOMY,THIGH OR HIP FOR COMPARTMENT SYNDROME (WRVU 12.89) performed by Sigifredo Garcia MD at [facility] MAIN OR ??? PRO OPEN TREAT MANDIBLE CONDYLE FX, COMPL 04/27/2013 OPEN TREATMENT, COMPLEX MANDIBLE FX., MULTI APPROACH, W/ FIXATION performed by Kishore Neil MD at [facility] MAIN OR ??? PRO REVISE MEDIAN N/CARPAL TUNNEL SURG Left 01/23/2022 MEDIAN NERVE DECOMPRESSION (CARPAL TUNNEL RELEASE) (WRVU 4.97) performed by Sigifredo Garcia MD at [facility] MAIN OR ??? PRO SEC CLSR SURG WOUND/DEHSN EXTENSIVE/COMPLICATED Left 01/26/2022 SECONDARY CLOSURE SURGICAL WOUND OR DEHISCENCE, EXTENSIVE OR COMPLICATED, UPPER EXTREMITY (WRVU 12.04) performed by Sigifredo Garcia MD at [facility] MAIN OR Prior To Admission Medications: [...] mg/mL) in sodium chloride 0.9% 50 mL COUNTER WAITER infusion ??? HYDROmorphone (Dilaudid) (1 mg/mL) injection syringe 1 mg ??? sevelamer carbonate (Renvela) tablet 1,600 mg ??? diphenhydrAMINE (Benadryl) (50 mg/mL) injection 25 mg ??? prochlorperazine (Compazine) (5 mg/mL) injection 5 mg ??? ondansetron (pf) (Zofran) (2 mg/mL) injection 4 mg ??? naloxone (Narcan) (0.4 mg/mL) injection 0.2 mg ??? COUNTER WAITER hutton ??? HYDROmorphone (mg) COUNTER WAITER shift total and Settings verification ??? vancomycin [...] to control pain - pain control: acetaminophen, COUNTER WAITER CV: hypotension in the setting of hypovolemia [...] AM EDT 24-HOUR H&P UPDATE Alix Hua Ochoa was seen and evaluated. No interval events or changes in health status since preoperative H+P. Denies angina, dyspnea, fevers, chills, or malaise since yesterday. All questions were answered. Stable for surgery as scheduled. Alert and oriented RRR CTAB Alix Holland is a 31 y.o. male pended for repeat I&D of the LLE. David Pagan MD Orthopaedic Surgery [facility] I spoke with and examined the [...] 6:33 AM EDT 24-HOUR H&P UPDATE Alix Melita Ochoa was seen and evaluated. No interval events [...] properly marked. David Pagan MD Orthopaedic Surgery [facility] Associated attestation - Sigifredo Garcia MD [...] syndrome s/p fasciotimies, I&D 01/23/22, 01/26/22 (Dr. Gacria), I&D w/ partial closure 01/29/22 (Dr. Valdovinos), [...] fracture ID: 31 y.o. Male presents to [facility] with PMH significant for hypertension, angioedema requiring intubation(unclear trigger), GERD, gastritis, esophagitis, and urachal cyst s/p I&D, and polysubstance use(including EtOH, cocaine, fentanyl, heroin)??who presented in transfer from [facility] to [facility] ICU on??01/23/2022??for cardiac arrest s/p ROSC, likely [...] to neuro exam. The transport events to [facility] are not clear, but the patient was given a total of 6mg narcan, 10mg IMversed (for ?seizure activity), and and IO placed. He also developed Vtach with rates in the 220s had CPR performed via Jitendra. He was intubated on arrival to [facility] underwent defibrillation with ROSC. He was given [...] was started on levophed and transferred to [facility] for ongoing management. Hospital/ICU course has been significant for: ?? Rhabdomyolysis d/t LUE + LLE Compartment Syndrome with hyperkalemic cardiac arrest ?? COVID-19 infection, Asymptomatic ?? ALTHEA requiring SALES AND MANAGEMENT TRAINEE ?? Transaminitis, likely ischemic hepatitis ?? Possible [...] performed by Tom Valdovinos MD [facility] MAIN OR ? ? PRO DEBRIDEMENT BONE MUSCLE &/FASCIA 20 SQ CM/< Left 01/31/2022 DEBRIDEMENT SKIN, SUBCU, MUSCLE, BONE, LOWER EXTREMITY (WRVU 4.1) performed by Jose Branch MD at [facility] MAIN OR ? ? PRO DEBRIDEMENT BONE MUSCLE &/FASCIA 20 SQ CM/< Left 01/31/2022 DEBRIDEMENT SKIN, SUBCU, MUSCLE, BONE UPPER EXTREMITY (WRVU 4.1) performed by Jose Branch MDat [facility] MAIN OR ? ? PRO DEBRIDEMENT MUSCLE AND FASCIA 20 SQ CM/< Left 01/26/2022 DEBRIDEMENT SKIN, SUBCU, MUSCLE, LOWER EXTREMITY (WRVU 2.7) performed by Sigifredo Garcia MD at [facility] MAIN OR ? ? PRO DEBRIDEMENT MUSCLE AND FASCIA 20 SQ CM/< Left 01/26/2022 DEBRIDEMENT SKIN, SUBCU, MUSCLE, UPPER EXTREMITY (WRVU 2.7) performed by Sigifredo Garcia MD at [facility] MAIN OR ??? PRO DECOMP FOREARM, 2 COMPART, W/O DEBRIDE Left 01/23/2022 FASCIOTOMY; FOREARM AND\OR WRIST, FLEXOR & EXTENS. COMP (WRVU 10.79) performed by Sigifredo Garcia MD at [facility] MAIN OR ??? PRO DECOMPRESS ANT/LAT+POST LEG CMPART Left 01/23/2022 FASCIOTOMY, LOWER LEG, ALL COMPARTMENTS (WRVU 7.82) performed by Sigifredo Garcia MD at [facility] MAIN OR ??? PRO INCIS OF HIP/THIGH FASCIA Left 01/23/2022 @FASCIOTOMY,THIGH OR HIP FOR COMPARTMENT SYNDROME (WRVU 12.89) performed by Sigifredo Garcia MD at [facility] MAIN OR ??? PRO OPEN TREAT MANDIBLE CONDYLE FX, COMPL 04/27/2013 OPEN TREATMENT, COMPLEX MANDIBLE FX., MULTI APPROACH, W/ FIXATION performed by Kishore Neil MD at [facility] MA[facility] OR ??? PRO REVISE MEDIAN N/CARPAL TUNNEL SURG Left 01/23/2022 MEDIAN NERVE DECOMPRESSION (CARPAL TUNNEL RELEASE) (WRVU 4.97) performed by Sigifredo Garcia MD at [facility] OR ??? PRO SEC CLSR SURG WOUND/DEHSN EXTENSIVE/COMPLICATED Left 01/26/2022 SECONDARY CLOSURE SURGICAL WOUND OR DEHISCENCE, EXTENSIVE OR COMPLICATED, UPPER EXTREMITY (WRVU 12.04) performed by Sigifredo Garcia MD at [facility] MAIN OR Prior To Admission Medications: [...] who have questions please contact the health manager wound care that requested your imaging first. Head wo Contrast (Generic) (Exam End: 01/23/2022 3:58 AM) Impression Globi pallidi infarcts. Mild cerebral edema. Thank you for letting us participate in the care of this patient. If you are a health care provider and have any questions regarding this report, please contact the number below. For patients who have questions please contact the health manager wound care that requested your imaging first. Electronically signed by: Rex Addison MD, [facility] ([phone]), at 01/23/2022 4:27 AM XR Abdomen 1 [...] who have questions please contact the health manager wound care that requested your imaging first. Electronically signed by: Jacky Mello MD, [facility] ([phone]), at 01/23/2022 8:[address] Lower Extremity [...] who have questions please contact the health manager wound care that requested your imaging first. Electronically signed by: Melita Mills MD, [facility] ([phone]), at 01/24/2022 1:[address] Chest wo [...] who have questions please contact the health manager wound care that requested your imaging first. Upper Extremity w Contrast Left (Exam End: [...] who have questions please contact the health manager wound care that requested your imaging first. Forearm Left [...] who have questions please contact the health manager wound care that requested your imaging first. Chest One [...] who have questions please contact the health manager wound care that requested your imaging first. Electronically signed by: Rex Addison MD, [facility] ([phone]), at 01/23/2022 6:56 AM XR Femur 2 views Left (Generic) (Exam End: 01/23/2022 2:04 PM) Impression No significant osseous finding. Thank you for letting us participate in the care of this patient. If you are a health care provider and have any questions regarding this report, please contact the number below. For patients who have questions please contact the health manager wound care that requested your imaging first. Electronically signed by: Lisandro Pruett MD, [facility] ([phone]), at 01/23/2022 2:10 PM XR Tibia Fibula Left (Generic) (Exam End: 01/23/2022 2:04 PM) Impression No bony abnormality seen. Thank you for letting us participate in the care of this patient. If you are a health care provider and have any questions regarding this report, please contact the number below. For patients who have questions please contact the health manager wound care that requested your imaging first. Electronically signed by: Jacky Mello MD, [facility] ([phone]), at 01/23/2022 2:07 PM XR Chest One [...] who have questions please contact the health manager wound care that requested your imaging first. Electronically signed by: Lisandro Pruett MD, [facility] ([phone]), at 01/23/2022 5:01 PM MRI Brain wo [...] who have questions please contact the health manager wound care that requested your imaging first. Electronically signed by: Bernadine Edward [facility] ([phone]), at 01/24/2022 4:[address] Angiogram [place] (Exam End: 01/24/2022 11:32 PM) Impression Normal appearance of the large and medium size arteries of the head and neck Thank you for letting us participate in the care of this patient. If you are a health care provider and have any questions regarding this report, please contact the number below. For patients who have questions please contact the health manager wound care that requested your imaging first. Angiogram Carotids [...] who have questions please contact the health manager wound care that requested your imaging first. Chest Abdomen [...] who have questions please contact the health manager wound care that requested your imaging first. Electronically signed by: Melita Mills MD, [facility] ([phone]), at 01/30/2022 3:20 PM Other Studies: EKG - Sinus tachycardia Nonspecific T wave abnormality Abnormal ECG When compared with ECG of 23-JAN-2022 00:46, heart rate has slowed Confirmed by Clem Guo ([id number]) on 02/01/2022 1:23:54 PM TTE 01/24 Interpretation [...] requires precautions (day 11) # ALTHEA requiring SALES AND MANAGEMENT TRAINEE; now on iHD # Hyponatremia # Hyperkalemia [...] 5:59 AM EDT 24-HOUR H&P UPDATE Alix Hua Ochoa was seen and evaluated. Patient covid/c diff positive. All questions were answered. Stable for surgery as scheduled. Alert and oriented Tachycardic, RR CTAB Alix Holland is a 31 y.o. male pended for I&D, [place] exchange vs definitive closure of LUE and LLE. David Pagan MD Orthopaedic Surgery [facility] Dimas Hernandez MD - 01/31/2022 6:29 [...] RRR CTAB Doc Roberts MD Orthopaedic Surgery [facility] Parrish Esqueda MD - 01/28/2022 5:25 [...] answered. Parrish Esqueda MD Orthopaedic Surgery Pager: [phone] Kris Dean MD - 01/26/2022 6:03 AM [...] to neuro exam. The transport events to [facility] are not clear, but thepatient was given a total of 6mg narcan, 10mg IMversed (for ?seizure activity), and and IO placed. He also developed Vtach with rates in the 220s had CPR performed via Jitendra. He was intubated on arrival to [facility] underwent defibrillation with ROSC. He was given [...] was started on levophed and transferred to [facility] for ongoing management. Urine drug screen: +barbiturates, +oxycodone, +opiates Tylenol, salicylates, and ethanol were negative Notable labs: WBC 27.6 Hgb 21.5 Plts 383 K 7.8-> 5.4 CO2 11 BUN 32 Cr 4.37 AG 35 Lactate >10 AST 3588 ALT 990 Trop-I >9000 SARS-CoV-2 RNA detected En-route to [facility] he was given boluses of ketamine for [...] FIXATION performed by Kishore Neil MD at [facility] MAIN OR No family history on [...] Last wbc, hgb, hct plt Recent Labs 01/23/22 0045 WBC 22.6* HGB 21.5* HCT 63.2* Last [...] Last Ca, Mg, Phos Recent Labs 01/23/22 004 CALCIUM 5.8* PHOS 10.0* MAGNESIUM 1.08* Last 3 Coags Recent Labs 01/23/22 0155 01/23/22 0045 PT 14.4* Disregard INR 1.3 Disregard PTT 25 Disregard Last 3 ProBNP, Trop, CK Recent Labs 01/23/22 004 CK >220,000* TROPONINT 0.43* Microbiology: -01/22/22 from [facility]: SARS-CoV2 PCR positive -Blood cultures, sputum culture, UA, respiratory PCR pending ECG: Sinus tachycardia Imaging: Assessment: Alix Holland is a 31 y.o. male with PMH significant for polysubstance use who presentsto the ICU in transfer from [facility] with cardiac arrest s/p ROSC. Etiology [...] removed Right femoral CVL placed 01/22 at [facility] Right radial A-line ETT NGT Ayala Consults: [...] Hillman APRN January 23, 2022 Critical Care [place] Team (pager [phone]) Dr. Robles is the attending of record [...] to the planned procedure. Hand Hygiene: The evidence specialist did perform hand hygiene prior to line insertion. Catheter type: PICC Lot number: [id number] Procedure Technique: Skin was prepped with chlorhexidine. [...] location at time of insertion: ICU 4 [facility] Rogers Solano APRN Collette Rivas PA - [...] to the planned procedure. Hand Hygiene: The evidence specialist did perform hand hygiene prior to arterial [...] to the planned procedure. Hand Hygiene: The evidence specialist did perform hand hygiene prior to arterial [...] Procedure Comments: As above. Associated attestation - Duina Han DO - 02/09/2022 7:30 PM EDT [...] yes Patient location at time of insertion: [address] Procedure Comments: Entire procedure supervised by OTIS Nguyen Cristina Hillman APRN - 01/23/2022 6:25 AM EDTAssociated Order(s): [...] yes Patient location at time of insertion: [address] Procedure Comments: Prior to dilation wire [...] to the planned procedure. Hand Hygiene: The evidence specialist did perform hand hygiene prior to arterial [...] Patient is medically ready for discharge to [facility] for acute rehab. Per [facility], patient can have PICC line in place for discharge. Needs for Transition of Care: Plan for discharge is: Acute Rehab Transportation: ambulance , [facility] 2:30pm Wheelchair van/Ambulance? Yes Ambulance transportation [...] and IADLs, drives, used towork for a [employer] company but is not currently working. Enjoys [...] set up out patient Suboxone once at [facility]. RC plans to call patient later today [...] outpatient MAT appointment, please page Psychiatry at [phone] if you need assistance with this. Time [...] primary team and at interdisciplinary rounds. Sahil Hernández reviewing for possible admission. Requested provider to [...] IADLs, drives, used to work for a [employer] company but is not currently working. Enjoys [...] discharge is: Acute Rehab Agency Referrals: Sahil Hernández Transportation: ambulance Ambulance Finance Concersation Completed: 03/16/2022 [...] outpatient Suboxone provider. He has spoken with [facility] in [place]. He plans to see them after DC [...] outpatient MAT appointment, please page Psychiatry at [phone] if you need assistance with this. Time [...] task/safety CPG GOAL OUTCOME EVALUATION: Plan of Clint - Geoffrey Hunt RN - 03/20/2022 6:44 [...] changed per flowsheet by this RN. 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 Pt able to get [...] to find Valeriy laying in bed. and Vlaeriy called [facility] to set up out patient provider. Valreiy left a message and is waiting for them to call him back. Some visitors showed up to see him so excused herself. Assessment: Valeriy is welcoming and friendly. He is feeling good about starting Suboxone. He is waiting to here back from out patient provider. Interventions delivered: Other: Peer Support Plan: will follow up with patient next week Outstanding Discharge Needs: At time of discharge patient may require a buprenorphine script to bridge to outpatient MAT appointment, please page Psychiatry at [phone] if you need assistance with this. Time [...] in the 60-day range as notedbelow.) Origin: [facility] Destination: [place] Is the patient's stay covered under Medicare [...] wheelchair van (i.e. seated during transport, without medical/surgery registered nurse or monitoring?): No 4) In addition to [...] by the Centers of Medicare and MedicaidServices ([facility]) to support the determination of medical [...] attending physician, this form was signed by Machine Stripper Cutter Plan of Care - Corina Zabala RN - 03/18/2022 4:27 PM EDT OUTCOME EVALUATION NOTE: ?? OUTCOME SUMMARY: ?? Pt had a good day. VSS on RA. A&Ox4. HR tachy to the 110s to 120 at baseline. COUNTER WAITER discontinued. Prn oxy given with good effect. [...] outpatient MAT appointment, please page BIT at [phone] if you need assistance with this. Time spent with the patient (min):15 minutes Time spent on case coordination (min): 15 minutes Consult Note - Dilia Lemons - 03/18/2022 7:30 AM EDT [facility] Evaluation Referral source: Follow up Reason for [...] it anymore. He agreed to speak with [facility] KATERYNA about the process of starting treatment. Assessment: Valeriy was welcoming and friendly. He is interested in starting Suboxone. [facility] has already given him information for [facility] in [facility] and will assist him in setting up out patient provider once he starts the treatment. Interventions delivered: Other: Peer Support Plan: will continue to follow patient for the remainder for admission. Outstanding Discharge Needs: At time of discharge patient may require a buprenorphine script to bridge to outpatient MAT appointment, please page Psychiatry at [phone] if you need assistance with this. Time spent with the patient (min):15 minutes Time spent on case coordination (min): 15 minutes Plan of Care - Corina Zabala RN - 03/17/2022 4:31 PM EDT OUTCOME EVALUATION NOTE: OUTCOME SUMMARY: Pt had a good day. VSS on RA. A&Ox4. HR tachy to the 110s to 120 at baseline. COUNTER WAITER decreased to 0.1mg. Prn oxy given with [...] Their notes will be sent by the Plaster Block Layer to the rehab facilities. Will likely have dressing change tomorrow. Currently weaning his dilaudid COUNTER WAITER. ?? Per IDR: 03/17/2022: Acute Rehab on [...] for discharge is: Acute Rehab Agency Referrals: [facility] Rehabilitation Unit - [address] [address] [facility] Acute Rehabilitation and Sub-Acute (Swing) Rehab Levels of Care [address] [place] [id number] Transportation: ambulance Discussed with patient on 03/16/2022. Barriers to discharge: Discharge planning Psych: Adjustment to diagnosis/illness, Coping/stress Plan going forward: ACS Care Management will continue to follow and assist with discharge planning and coordination of care as indicated. Anticipated Date of Discharge: 03/22/2022 Alexa Fonseca RN (Jonas) RN/CM - Cellphone: [phone] Pager: [phone] Covering Service RN/CM Care Management - Jamilah Fonseca RN - 03/17/2022 9:05 AM EDT RN/CM has called: Alix Holland (father) c: [phone] Dad's House: Mobile home; [address]. No steps inside of home. Dad visits almost daily to see his son. Dad will help him establish a PCP with the local [facility]. Per Dad, when pt gets home, his dad will be home as he is retired so he is available 21/02. His Mom is in [place] and she can come up and help [...] near future. Pt's has a brother in [place] - willing to have him come down there once he is physically able to do so. Work: [employer], [employer] through [place] [employer]. Pt's dad is hopeful that he'll be able to get backto his work. Alexa (Kenny) ÁNGEL Fonseca RN/YODIT - Cellphone: [phone] Pager: [phone] Covering Service RN/CM Plan of Care - Jayme Keenan RN - 03/16/2022 6:56 PM EDT OUTCOME EVALUATION NOTE: OUTCOME SUMMARY: Alix had a good shift today. Elevated BPs and tachycardic, other VSS on RA. Reporting 8 to 10/10 pain, using dilaudid COUNTER WAITER and PRN oxy given x2. Up to chair twice. PT/OT eval today. 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 R thigh and L arm CDI. Reinforced L thigh dressing with abd pad and kerlix. Sacrum red and excoriated. Refusing sacral mepilex. One soft BM via bedpan. Following PT eval today, pt encouraged to use bedside commode. Adequate UOP via urinal. PLAN MOVING FORWARD: M/W/F dressing changes Encourage mobilization and independence Monitor and control pain, weaning COUNTER WAITER, syringe expires 03/18 at 1755 Hoping to [...] monitoring]: Masimo, rounding, personal items and [facility], room near unit station Care Management - Jamilah Fonseca RN - 03/16/2022 3:58 PM EDT Based on discussions with the multi-disciplinary healthcare team, the patient would benefit from Acute Rehab level of care at discharge. I have met with the patient to: ?? discuss discharge planning needs. ?? provide the [facility], Office of Care Management letter from the Home Day Care Provider pertaining to rehab referrals. ?? provide a letter describing our affiliations within the [facility] and educate about their right to choose where referrals are sent. ?? provide the [facility] Star Quality Rating handout. ?? review the different levels of rehab including SNF, swing, and acute. ?? provide a list of facilities within their preferred geographic area. ?? request that they provide at least three choices for referral. They have requested referrals to: [facility]patient Rehabilitation Unit - [address] [address] [facility] Acute Rehabilitation and Sub-Acute (Swing) Rehab Levels of Care [address] [place] [address] Covid Vaccination Status: UNVACCINATED Does patient have COVID vaccine card: N/A Anticipated discharge date: 03/19/2022 Note routed to a Life Agent who will communicate referrals to facilities and [...] go back to his dad's house in [facility]. RN/CM attempted to call: Alix Holland (Father) - Alix Holland (father) c: [phone]. RN/CM attempted calls to other family members: Marylou Holland (Sibling) - [phone] (H): phone call was not able to get through Josefina Holland (Grandparent) - [phone] (H): line busy Per patient, he was employed x 5 years. He is unsure if he'll have employment after all of this is completed and he is strong, healthy enough to work. Alexa uSllivan) ÁNGEL Fonseca RN/CM - Cellphone: [phone] Pager: [phone] Covering Service RN/CM Consult Note - Dilia [...] RA. Reporting 8 to10/10 pain, using dilaudid COUNTER WAITER and PRN oxy given x2. Dressing change [...] and self care Monitor and control pain, COUNTER WAITER expires 03/16 1800 INDIVIDUALIZED FALL PREVENTION INTERVENTIONS: [...] Alexa Fonseca RN (Jonas) RN/CM - Cellphone: [phone] Pager: [phone] Covering Service RN/CM Op Note - Allison Kelly MD - 03/15/2022 9:02 AM EDT [facility] Operative Note Patient Name: Alix Holland : [id number] MR#: [id number] Case Date: 03/15/2022 Surgeon: Surgeon(s) and Role: [...] changes who ultimately underwent STSGs to [facility] on 03/10/22. He then returned to the [...] Operative Note Patient Name: Alix Holland : [id number] MR#: [id number] Case Date: 03/15/2022 Surgeon: Surgeon(s) and Role: [...] Bundle Used? N/A Consult Note - Thomas Julian, [facility] - 03/14/2022 4:59 PM EDT Clinical Pharmacist Note-Vanc Alix Holland [id number] 1990 Alix Melita Ochoa is a 31 y.o. male is being [...] have. Alternately, during off-hours you may call [phone] to contact a pharmacist. THOMAS JULIAN [facility] Pager [phone] Plan of Care - Adrienne Tejada RN - 03/13/2022 7:37 PM EDT OUTCOME EVALUATION NOTE: OUTCOME SUMMARY: Pt hypertensive and tachycardic. MD aware. A&Ox4. Pt went to OR. Wound vacs d/cd. LLE and LUE redressed with adaptic coated with silver wound gel, covered with telfa, gauze, kerlix, coban. LLE and LUE dressing change only by . Voiding via urinal, adequate amount. No BM [...] Hands on ?? Surveillance [continuous indirect monitoring]: abdoul Almanzar within reach, purposeful rounding ?? Patient-specific fall prevention interventions for sensory deficits provided, if applicable: [X] Yes, ??lighting adjusted for tasks/safety, environmental modification, non-skid socks ? CARE PLAN GOAL OUTCOME EVALUATION: ongoing Brief Op Note - Jareth Alonzo MD - 03/13/2022 9:40 AM EDT Brief Operative Note Patient Name: Alix Holland : [id number] MR#: [id number] Case Date: 03/13/2022 Surgeon: Surgeon(s) and Role: [...] from the original note were not included. [facility] Operative Note Patient Name: Alix Holland : [id number] MR#: [id number] Case Date: 03/13/2022 Surgeon: Surgeon(s) and Role: [...] Reporting 8 to 10/10 pain, using dilaudid COUNTER WAITER and PRN oxy given x2. No BM this shift but pt now willing to take bowel meds, LBM /. Adequate UOP via urinal. NPO status maintained after midnight. PLAN MOVING FORWARD: Strict bedrest NPO for OR today Encourage self care Monitor and control pain, start weaning COUNTER WAITER INDIVIDUALIZED FALL PREVENTION INTERVENTIONS: Patient-specific fall risk factors per assessment: [current deficits]: Unfamiliar environment, recent surgeries, generalized weakness, lines and drains, pain, narcotics Assistance [level of assistance required for transfers and ambulation]: Bedrest, 2 assist to reposition Supervision [direct monitoring required during toileting and ADLs]: Hands on Surveillance [continuous indirect monbitoring]: Masimo, rounding, personal items and call [facility], room near unit station, bed alarm set Plan of Care - Adrienne Tejada RN - 03/12/2022 7:11 PM EDT OUTCOME EVALUATION NOTE: OUTCOME SUMMARY: Pt A&Ox4. Pt hypertensive and tachycardic. MD aware. A&Ox4. Pt denies SOB, N/V.Pain controlled witn COUNTER WAITER dilaudid and PRN pain meds. Neurovascular checks [...] Reporting 8 to 10/10 pain, using dilaudid COUNTER WAITER and PRN oxy given x2. No BM this shift, LBM 8/10. High UOP. MIVF discontinued. PLAN MOVING FORWARD: NPO tomorrow at midnight for OR Tuesday Encourage self care Monitor and control pain, start weaning COUNTER WAITER INDIVIDUALIZED FALL PREVENTION INTERVENTIONS: Patient-specific fall risk [...] and tachycardic. MD aware. Pain controlled witn COUNTER WAITER dilaudid and PRN pain meds. Neurovascular checks [...] ADLs]: hands on Surveillance [continuous indirect monitoring]: Masimo, call [...] VAC particularly not holding suction please page [phone] immediately given that thiswill affect skin graft take -High-protein high-calorie low Phos diet -Plan to return to the operating room on Tuesday for VAC removal, bedrest until then -COUNTER WAITER for pain control will wean as able [...] Alexa Fonseca RN (Jonas) RN/CM - Cellphone: [phone] Pager: [phone] Covering Service RN/CM Op Note - Veto Hidalgo MD - 03/10/2022 4:40 PM EDT [facility] Operative Note Patient Name: Alix Holland : [id number] MR#: [id number] Case Date: 03/10/2022 Surgeon: Surgeon(s) and Role: [...] pertinent to this patient.) HPI/Surgical Indications: Alix oHlland??is a??31 yo male with LLE and and [...] Operative Note Patient Name: Alix Holland : [id number] MR#: [id number] Case Date: 03/10/2022 Surgeon: Surgeon(s) and Role: [...] Alexa Fonseca RN (Jonas) RN/CM - Cellphone: [phone] Pager: [phone] Covering Service RN/CM Plan of Care - [...] Sanabria MD - 03/03/2022 6:43 PM EDT [facility] Operative Note Patient Name: Alix Holland : [id number] MR#: [id number] Case Date: 03/03/2022 Surgeon: Surgeon(s) and Role: [...] good granulation tissue, minimal exposed tendon. Measures [id number] 3mm deep. One black sponge replaced and [...] closing). WILLIE SANABRIA MD 03/03/2022 Plan of [facility] - Carlita Malik RN - 03/03/2022 2:46 PM EDT Peripherally Inserted Central Catheter (PICC) Teaching Sheet Peripherally inserted central catheters (rtat-wr-tbsg) (PICC) are used when you need IV [...] midline catheter? PICC lines are used for termite exterminator helper treatments. PICC lines may be used for [...] can be set up via the nurse Assembler Erector to help you. What are possible complications [...] Efficacy, Safety, Use, and Administration of [employer] 2006 Plan of Care - Rhonda Coyle RN - 03/03/2022 6:10 AM EDT Outcome Evaluation Note: Outcome Summary: Pt A&Ox4, VSS on RA - expect tachycardic, afebrile. Reports 10/10 pain with PRN oxycodone. WoundVac x2 to suction, CDI. AUOP via urinal, no BM this shift. Pt NPO at midnight for OR WV change. Labsdrawn and sent. [facility] Plan Moving Forward: Pain management. OR [...] Operative Note Patient Name: Alix Holland : [id number] MR#: [id number] Case Date: 03/01/2022 Surgeon: Surgeon(s) and Role: [...] Sanabria MD - 03/01/2022 8:09 PM EDT [facility] Operative Note Patient Name: Alix Holland : [id number] MR#: [id number] Case Date: 03/01/2022 ?? Surgeon: Surgeon(s) and [...] Betancourt MD - 02/26/2022 8:58 AM EDT [facility] Operative Note Patient Name: Alix Holland : [id number] MR#: [id number] Case Date: 02/26/2022 Surgeon: Surgeon(s) and Role: [...] and Serratia infections.?? RN at bedside with INCOME TAX ANALYST; Patient has just returned from OR. RN [...] Risk Screen: no indicators present Current bed: [facility] Assessment: Patient is free of MASD at [...] Ajit Simmons RN on secure chat, pager [phone] or the wound care team at [phone] or pager [phone] with skin and wound care concerns or questions. Op Note - Elaine Dos Santos MD - 02/24/2022 12:14 PM EDT [facility] Operative Note Patient Name: Alix Holland : [id number] MR#: [id number] Case Date: 02/24/2022 Surgeon: Surgeon(s) and Role: [...] with visitor majority of afternoon. ID MD Rodriguez DC'd IV abx. Bed alarm on for safety. [facility] Plan Moving Forward: HD. Pain management. [...] Outpatient Agency/Support Group Needs: None Agency Referrals: [facility] for HD Transportation: Family Plan going forward: Care Management will continue to follow and assist with discharge planning and coordination of care as indicated. Anticipated Date of Discharge: 02/26/2022 Lizzy Love RN, BSN Case Management Brief Op Note - Elaine Dos Santos MD - 02/22/2022 9:42 AM EDT Brief Operative Note Patient Name: Alix Holland : [id number] MR#: [id number] Case Date: 02/22/2022 Surgeon: Surgeon(s) and Role: [...] Santos MD - 02/22/2022 9:27 AM EDT [facility] Operative Note Patient Name: Alix Holland : [id number] MR#: [id number] Case Date: 02/22/2022 Surgeon: Surgeon(s) and Role: [...] Sandoval MD - 02/19/2022 10:20 AM EDT [facility] Operative Note Patient Name: Alix Holland : [id number] MR#: [id number] Case Date: 02/19/2022 Surgeon: Surgeon(s) and Role: [...] pt, strong radial pulse with doppler - made aware. Pt started on Heparin for DVT. 8,000 un Heparin bolus given, Heparin gtt started at 1,900 un. Heparin gtt was stopped at 0517 for OR. Pt remained NPO @ 0000 for OR. [facility] Plan Moving Forward: Pain control. NPO for [...] Operative Note Patient Name: Alix Holland : [id number] MR#: [id number] Case Date: 02/17/2022 Surgeon: Surgeon(s) and Role: [...] Armstrong MD - 02/17/2022 8:03 AM EDT [facility] Operative Note Patient Name: Alix Holland : [id number] MR#: [id number] Case Date: 02/17/2022 Surgeon: Surgeon(s) and Role: [...] tomorrow. Asked GUEVARA Huff to look into [facility] to determine any other information they [...] Armstrong MD - 02/15/2022 2:08 PM EDT [facility] Operative Note Patient Name: Alix Holland : [id number] MR#: [id number] Case Date: 02/15/2022 Surgeon: Surgeon(s) and Role: [...] was cultured. We then removed the remaining [place]. The wound was irrigated and measured wound [...] EVALUATION: Ongoing Consult Note - Maureen Ames RP - 02/13/2022 12:17 PM EDT Clinical Pharmacist Note - Renal Dose Adjustment for Antimicrobials Alix Holland (A# [id number]) is being treated with the following antimicrobial [...] Chatterjee MD - 02/13/2022 9:52 AM EDT [facility] Operative Note Patient Name: Alix Holland : [id number] MR#: [id number] Case Date: 02/13/2022 Surgeon: Surgeon(s) and Role: [...] 1990 PCP: None Primary Team #: ICU ([place] #[id number]) CC: findings of CTH HPI: Alix Holland [...] he was following commands upon arrival to [facility] ICU. CTH showed bilateral symmetric globus pallidi [...] Arteriogram Lower Extremity 02/06/2022 Nicole Vivas MD [facility] INTERVENTIONL RAD ??? PRO DEBRIDEMENT BONE EA ADDL 20 SQCM 02/08/2022 EACH ADDITIONAL 20 SQ CM, OR PART THEREOF (WRVU 1.8) performed by Jeanette Chatterjee MD at [facility] PAIGE ? ? PRO DEBRIDEMENT BONE MUSCLE &/FASCIA 20 SQ CM/< Left 01/29/2022 DEBRIDEMENT SKIN, SUBCU, MUSCLE, BONE, LOWER EXTREMITY (WRVU 4.1) performed by Tom Valdovinos MD [facility] MAIN OR ? ? PRO DEBRIDEMENT BONE MUSCLE &/FASCIA 20 SQ CM/< Left 01/31/2022 DEBRIDEMENT SKIN, SUBCU, MUSCLE, BONE, LOWER EXTREMITY (WRVU 4.1) performed by Jose Branch MD at [facility] MAIN OR ? ? PRO DEBRIDEMENT BONE MUSCLE &/FASCIA 20 SQ CM/< Left 01/31/2022 DEBRIDEMENT SKIN, SUBCU, MUSCLE, BONE UPPER EXTREMITY (WRVU 4.1) performed by Jose Branch MDat [facility] MAIN OR ? ? PRO DEBRIDEMENT BONE MUSCLE &/FASCIA 20 SQ CM/< Left 02/02/2022 DEBRIDEMENT SKIN, SUBCU, MUSCLE, BONE UPPER EXTREMITY (WRVU 4.1) performed by Hina Starks MD at [facility] MAIN OR ? ? PRO DEBRIDEMENT BONE MUSCLE &/FASCIA 20 SQ CM/< Left 02/02/2022 DEBRIDEMENT SKIN, SUBCU, MUSCLE, BONE, LOWER EXTREMITY (WRVU 4.1) performed by Hina Starks MD at [facility] MAIN OR ? ? PRO DEBRIDEMENT MUSCLE AND FASCIA 20 SQ CM/< Left 01/26/2022 DEBRIDEMENT SKIN, SUBCU, MUSCLE, LOWER EXTREMITY (WRVU 2.7) performed by Sigifredo Garcia MD at [facility] MAIN OR ? ? PRO DEBRIDEMENT MUSCLE AND FASCIA 20 SQ CM/< Left 01/26/2022 DEBRIDEMENT SKIN, SUBCU, MUSCLE, UPPER EXTREMITY (WRVU 2.7) performed by Sigifredo Garcia MD at [facility] OR ? ? PRO DEBRIDEMENT MUSCLE AND FASCIA 20 SQ CM/< Left 02/05/2022 DEBRIDEMENT SKIN, SUBCU, MUSCLE, LOWER EXTREMITY (WRVU 2.7) performed by Tom Valdovinos MD at [facility] OR ? ? PRO DEBRIDEMENT MUSCLE AND FASCIA 20 SQ CM/< Left 02/04/2022 DEBRIDEMENT SKIN, SUBCU, MUSCLE, LOWER EXTREMITY (WRVU 2.7) performed by Sigifredo Garcia MD at [facility] OR ? ? PRO DEBRIDEMENT SUBCUTANEOUS TISSUE 20 SQCM/< Left 02/04/2022 DEBRIDEMENT SKIN AND SUBCU, UPPER EXTREMITY (WRVU 1.01) performed by Sigifredo Garcia MD [facility] ? ? PRO DEBRIDEMENT SUBCUTANEOUS TISSUE 20 SQCM/< Left 02/08/2022 DEBRIDEMENT SKIN AND SUBCU, LOWER EXTREMITY (WRVU 1.01) performed by Jeanette Chatterjee MD at [facility] OR ? ? PRO DEBRIDEMENT SUBCUTANEOUS TISSUE 20 SQCM/< Left 02/09/2022 DEBRIDEMENT SKIN AND SUBCU, LOWER EXTREMITY (WRVU 1.01) performed by Jeanette Chatterjee MD at [facility] OR ??? PRO DECOMP FOREARM, 2 COMPART, W/O DEBRIDE Left 01/23/2022 FASCIOTOMY; FOREARM AND\OR WRIST, FLEXOR & EXTENS. COMP (WRVU 10.79) performed by Sigifredo Garcia MD at [facility] OR ??? PRO DECOMPRESS ANT/LAT+POST LEG CMPART Left 01/23/2022 FASCIOTOMY, LOWER LEG, ALL COMPARTMENTS (WRVU 7.82) performed by Sigifredo Garcia MD at [facility] OR ? ? PRO I&D DEEP ABSCESS BURSA/HEMATOMA THIGH/KNEE REGION Left 02/06/2022 INCISION & DRAINAGE ABSCESS OR HEMATOMA, THIGH, KNEE SUPERFICIAL (WRVU 6.78) performed by Jayme Armstrong MD at [facility] OR ??? PRO INCIS OF HIP/THIGH FASCIA Left 01/23/2022 @FASCIOTOMY,THIGH OR HIP FOR COMPARTMENT SYNDROME (WRVU 12.89) performed by Sigifredo Garcia MD at [facility] MAIN OR ??? PRO NEGATIVE PRESSURE WOUND THERAPY, LESS THAN OR EQUAL TO 50 SQCM Left 02/05/2022 DRESSING CHANGE (VAC ASSISTED) UP TO 50SQ.CM (WRVU 0.55) performed by Orville Hennessy MD at [facility] MAIN OR ??? PRO NEGATIVE PRESSURE WOUND THERAPY, LESS THAN OR EQUAL TO 50 SQCM Left 02/05/2022 DRESSING CHANGE (VAC ASSISTED) UP TO 50SQ.CM (WRVU 0.55) performed by Tom Valdovinos MD at [facility] MAIN OR ??? PRO NEGATIVE PRESSURE WOUND THERAPY, LESS THAN OR EQUAL TO 50 SQCM Left 02/08/2022 DRESSING CHANGE (VAC ASSISTED) UP TO 50SQ.CM (WRVU 0.55) performed by Jeanette Chatterjee MD at [facility] MAIN OR ??? PRO OPEN TREAT MANDIBLE CONDYLE FX, COMPL 04/27/2013 OPEN TREATMENT, COMPLEX MANDIBLE FX., MULTI APPROACH, W/ FIXATION performed by Kishore Neil MD at [facility] MAIN OR ??? PRO REVISE MEDIAN N/CARPAL TUNNEL SURG Left 01/23/2022 MEDIAN NERVE DECOMPRESSION (CARPAL TUNNEL RELEASE) (WRVU 4.97) performed by Sigifredo Garcia MD at [facility] MAIN OR ??? PRO SEC CLSR SURG WOUND/DEHSN EXTENSIVE/COMPLICATED Left 01/26/2022 SECONDARY CLOSURE SURGICAL WOUND OR DEHISCENCE, EXTENSIVE OR COMPLICATED, UPPER EXTREMITY (WRVU 12.04) performed by Sigifredo Garcia MD at [facility] MAIN OR Home Medications: No current [...] year, name, knows why he is at [facility], knows he is at [facility], follows complex commands. More alert than prior; [...] Border Sacrum applied to sacrum Photos taken: Quintin Score: 15 Nutritional Status Wt Readings from [...] job aid in the clinical policy library. Prevalon Turn and Position System 2.0 1. Wash hands and ensure privacy for the patient. 2. Apply the [place] sheet with Body Pad under the patient with the tag on the underside of the [place] Sheet unfolded toward head of bed. Align upper edge of [place] Sheet with patient's shoulders. 3. Gently slide [...] chat or the wound care team at [phone] or pager [phone] with skin and wound care concerns or questions. Consult Note - Galdion Saeed MD - 02/11/2022 2:51 PM EDT [...] off for discharge. We recommend stopping the COUNTER WAITER and increasing the frequency of the PRNoxycodone to make up for any decrease in coverage. There is no role for IV pain medication in his care except for rescue and OR. The dronabinol can also be increased. Recommendations: - D/C hydromorphone COUNTER WAITER - increase oxy sliding scale to Q3h - avoid IV opioids (other than rescue and OR) - increase dronabinol to 15mg PO BID Plan discussed with patient, his partner, and the primary team. Recommendations are above, please page if further consultation is required. Nicholas Modi MD 02/11/2022 Acute Pain Service Pager: [phone] I have seen and examined the patient. I have reviewed Dr. Modi's note and agree with the findings, assessment and plan. Op Note - Kaitlyn Rock MD - 02/11/2022 11:09 AM EDT [facility] Operative Note Patient Name: Alix Holland : [id number] MR#: [id number] Case Date: 02/11/2022 Surgeon: Surgeon(s) and Role: [...] CONSULTATION NOTE Patient ID: Alix Holland Room: [address] [place] [id number] Reason for Consult: Surgical site infection and [...] issues with pain control and PO and COUNTER WAITER currently helping somewhat. 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, [place] of [address] nl NEW PROBLEMS - #Wound [...] Chatterjee MD - 02/09/2022 4:57 PM EDT [facility] Operative Note Patient Name: Alix Holland : [id number] MR#: [id number] Case Date: 02/09/2022 Surgeon: Surgeon(s) and Role: [...] Operative Note Patient Name: Alix Holland : [id number] MR#: [id number] Case Date: 02/08/2022 Surgeon: Surgeon(s) and Role: [...] Rounding Note Situation: Asked to see Alix Hua Ochoa by Evangelina Meza RN for many surgical [...] Please contact Naomy Liao RN on pager [phone] or the wound care team at [phone] with skin and wound care concerns or questions. Op Note - Jeanette Chatterjee MD - 02/08/2022 4:18 PM EDT [facility] Operative Note Patient Name: Alix Holland : [id number] MR#: [id number] Case Date: 02/08/2022 Surgeon: Surgeon(s) and Role: [...] N/A Prescription Coverage: No Preferred Pharmacy: [facility] [address] [phone] [facility] [id number] [facility] [address] Plan for discharge is: Pending Hospital Course [...] Armstrong MD - 02/06/2022 4:09 PM EDT [facility] Operative Note Patient Name: Alix Holland : [id number] MR#: [id number] Case Date: 02/06/2022 Surgeon: Surgeon(s) and Role: [...] artery ?? Mynx Closure device deployed, R MARINE EQUIPMENT DESIGN ENGINEER Findings of the procedure: ?? 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 Transfer back to ICU 2. 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 Monitor for Right [...] to wound vac on LUE. Pt using COUNTER WAITER for pain control. PT to OR midday. [...] per assessment: [current deficits]: Severely limited mobility, COUNTER WAITER pump, central venous access., wound vacs Assistance [...] Valdovinos MD - 02/05/2022 1:17 PM EDT [facility] Operative Note Panel 1 Patient Name: Alix Holland : [id number] MR#: [id number] Case Date: 02/05/2022 Surgeon: Surgeon(s) and Role: Panel 1: * Tom Valdovinos MD - Primary * Floridalma Carter MD - Resident * David Pagan MD - Resident Panel 2: * Orville Hennessy MD - Primary Preoperative diagnosis: Left thigh fasciotomy with persistent necrotic muscle Postoperative diagnosis: Same: necrotic gluteus medius, gluteus avery Procedure(s) (LRB): DEBRIDEMENT LEFT THIGH NECROTIC GLUTEUS MEDIUS AND AVERY Anesthesia: General Estimated Blood Loss: 500 mL [...] Hennessy MD - 02/05/2022 1:17 PM EDT [facility] Operative Note Patient Name: Alix Holland : [id number] MR#: [id number] Case Date: 02/05/2022 Surgeon: Surgeon(s) and Role: [...] Operative Note Patient Name: Alix Holland : [id number] MR#: [id number] Case Date: 02/04/2022 Surgeon: Surgeon(s) and Role: [...] Garcia MD - 02/04/2022 5:38 PM EDT [facility] Operative Note Patient Name: Alix Holland : [id number] MR#: [id number] Case Date: 02/04/2022 Surgeon: Surgeon(s) and Role: [...] performed by Tom Valdovinos MD [facility] MAIN OR ? ? PRO DEBRIDEMENT BONE MUSCLE &/FASCIA 20 SQ CM/< Left 01/31/2022 DEBRIDEMENT SKIN, SUBCU, MUSCLE, BONE, LOWER EXTREMITY (WRVU 4.1) performed by Jose Branch MD at [facility] MAIN OR ? ? PRO DEBRIDEMENT BONE MUSCLE &/FASCIA 20 SQ CM/< Left 01/31/2022 DEBRIDEMENT SKIN, SUBCU, MUSCLE, BONE UPPER EXTREMITY (WRVU 4.1) performed by Jose Branch MDat [facility] MAIN OR ? ? PRO DEBRIDEMENT BONE MUSCLE &/FASCIA 20 SQ CM/< Left 02/02/2022 DEBRIDEMENT SKIN, SUBCU, MUSCLE, BONE UPPER EXTREMITY (WRVU 4.1) performed by Hina Starks MD at [facility] MAIN OR ? ? PRO DEBRIDEMENT BONE MUSCLE &/FASCIA 20 SQ CM/< Left 02/02/2022 DEBRIDEMENT SKIN, SUBCU, MUSCLE, BONE, LOWER EXTREMITY (WRVU 4.1) performed by Hina Starks MD at [facility] MAIN OR ? ? PRO DEBRIDEMENT MUSCLE AND FASCIA 20 SQ CM/< Left 01/26/2022 DEBRIDEMENT SKIN, SUBCU, MUSCLE, LOWER EXTREMITY (WRVU 2.7) performed by Sigifredo Garcia MD at [facility] MAIN OR ? ? PRO DEBRIDEMENT MUSCLE AND FASCIA 20 SQ CM/< Left 01/26/2022 DEBRIDEMENT SKIN, SUBCU, MUSCLE, UPPER EXTREMITY (WRVU 2.7) performed by Sigifredo Garcia MD at [facility] MAIN OR ??? PRO DECOMP FOREARM, 2 COMPART, W/O DEBRIDE Left 01/23/2022 FASCIOTOMY; FOREARM AND\OR WRIST, FLEXOR & EXTENS. COMP (WRVU 10.79) performed by Sigifredo Garcia MD at [facility] MAIN OR ??? PRO DECOMPRESS ANT/LAT+POST LEG CMPART Left 01/23/2022 FASCIOTOMY, LOWER LEG, ALL COMPARTMENTS (WRVU 7.82) performed by Sigifredo Garcia MD at [facility] MAIN OR ??? PRO INCIS OF HIP/THIGH FASCIA Left 01/23/2022 @FASCIOTOMY,THIGH OR HIP FOR COMPARTMENT SYNDROME (WRVU 12.89) performed by Sigifredo Garcia MD at [facility] MAIN OR ??? PRO OPEN TREAT MANDIBLE CONDYLE FX, COMPL 04/27/2013 OPEN TREATMENT, COMPLEX MANDIBLE FX., MULTI APPROACH, W/ FIXATION performed by Kishore Neil MD at [facility] MAIN OR ??? PRO REVISE MEDIAN N/CARPAL TUNNEL SURG Left 01/23/2022 MEDIAN NERVE DECOMPRESSION (CARPAL TUNNEL RELEASE) (WRVU 4.97) performed by Sigifredo Garcia MD at [facility] MAIN OR ??? PRO SEC CLSR SURG WOUND/DEHSN EXTENSIVE/COMPLICATED Left 01/26/2022 SECONDARY CLOSURE SURGICAL WOUND OR DEHISCENCE, EXTENSIVE OR COMPLICATED, UPPER EXTREMITY (WRVU 12.04) performed by Sigifredo Garcia MD at [facility] MAIN OR MEDS: No current facility-administered medications on [...] Kenny Brandon MD Plastic surgery team pager: [phone] Attending: Plan discussed and agree as documented. [...] 1990 PCP: None Primary Team #: ICU ([place] #[id number]) CC: findings of CTH HPI: Alix Holland [...] he was following commands upon arrival to [facility] ICU. CTH showed bilateral symmetric globus pallidi [...] no acute intervention Today: - pain control: COUNTER WAITER, received dilaudid IV x 1 yesterday for breakthrough. > APS following for pain control recs - reports significant pain in LUE mainly this AM '05/10' Current Medications: Scheduled Meds: ??? COUNTER WAITER shift total and Settings verification Intravenous 2 Times Daily- COUNTER WAITER Shift Total ??? vancomycin 125 mg Oral [...] performed by Tom Valdovinos MD [facility] MAIN OR ? ? PRO DEBRIDEMENT BONE MUSCLE &/FASCIA 20 SQ CM/< Left 01/31/2022 DEBRIDEMENT SKIN, SUBCU, MUSCLE, BONE, LOWER EXTREMITY (WRVU 4.1) performed by Jose Branch MD at [facility] MAIN OR ? ? PRO DEBRIDEMENT BONE MUSCLE &/FASCIA 20 SQ CM/< Left 01/31/2022 DEBRIDEMENT SKIN, SUBCU, MUSCLE, BONE UPPER EXTREMITY (WRVU 4.1) performed by Jose Branch, Ferdinandt [facility] MAIN OR ? ? PRO DEBRIDEMENT MUSCLE AND FASCIA 20 SQ CM/< Left 01/26/2022 DEBRIDEMENT SKIN, SUBCU, MUSCLE, LOWER EXTREMITY (WRVU 2.7) performed by Sigifredo Garcia MD at [facility] MAIN OR ? ? PRO DEBRIDEMENT MUSCLE AND FASCIA 20 SQ CM/< Left 01/26/2022 DEBRIDEMENT SKIN, SUBCU, MUSCLE, UPPER EXTREMITY (WRVU 2.7) performed by Sigifredo Garcia MD at [facility] OR ??? PRO DECOMP FOREARM, 2 COMPART, W/O DEBRIDE Left 01/23/2022 FASCIOTOMY; FOREARM AND\OR WRIST, FLEXOR & EXTENS. COMP (WRVU 10.79) performed by Sigifredo Garcia MD at [facility] OR ??? PRO DECOMPRESS ANT/LAT+POST LEG CMPART Left 01/23/2022 FASCIOTOMY, LOWER LEG, ALL COMPARTMENTS (WRVU 7.82) performed by Sigifredo Garcia MD at [facility] OR ??? PRO INCIS OF HIP/THIGH FASCIA Left 01/23/2022 @FASCIOTOMY,THIGH OR HIP FOR COMPARTMENT SYNDROME (WRVU 12.89) performed by Sigifredo Garcia MD at [facility] OR ??? PRO OPEN TREAT MANDIBLE CONDYLE FX, COMPL 04/27/2013 OPEN TREATMENT, COMPLEX MANDIBLE FX., MULTI APPROACH, W/ FIXATION performed by Kishore Neil MD at [facility] OR ??? PRO REVISE MEDIAN N/CARPAL TUNNEL SURG Left 01/23/2022 MEDIAN NERVE DECOMPRESSION (CARPAL TUNNEL RELEASE) (WRVU 4.97) performed by Sigifredo Garcia MD at [facility] OR ??? PRO SEC CLSR SURG WOUND/DEHSN EXTENSIVE/COMPLICATED Left 01/26/2022 SECONDARY CLOSURE SURGICAL WOUND OR DEHISCENCE, EXTENSIVE OR COMPLICATED, UPPER EXTREMITY (WRVU 12.04) performed by Sigifredo Garcia MD at [facility] OR [place] Medications: No current facility-administered medications on file [...] year, name, knows why he is at [facility], knows he is at [facility], follows complex commands. Very sleepy on exam, [...] his local injuriesand post-surgical changes than his DYE CAN OPERATOR findings. No additional workup or intervention indicated [...] from the original note were not included. [facility] Operative Note Patient Name: Alix Holland : [id number] MR#: [id number] Case Date: 02/02/2022 Surgeon: Surgeon(s) and Role: * Hina Starks MD - Primary * Ama Dickerson PA - Physician Acetylene Gas Compressor * Terry Vázquez MD - Resident Preoperative [...] Insurance: N/A Prescription Coverage: No Preferred Pharmacy: [facility] [place] - [facility] [address] [facility] [phone] [id number] - [place], [place] - [address] [facility] [address] [facility] [place] [address] Plan for discharge is: Pending Hospital Course [...] changes of note to overall assessment. Dilaudid COUNTER WAITER with good effect on pain. Pt slept [...] w/ minimal effect. Pt switched over to COUNTER WAITER pump w/ some improvement in pain. Wound [...] Branch MD - 01/31/2022 11:09 AM EDT [facility] Operative Note Patient Name: Alix Holland : [id number] MR#: [id number] Case Date: 01/31/2022 Surgeon: Surgeon(s) and Role: [...] Patient was met in his room, green tonkawa was placed in the left upper and [...] Valdovinos MD - 01/29/2022 3:50 PM EDT [facility] Operative Note Patient Name: Alix Holland : [id number] MR#: [id number] Case Date: 01/29/2022 Surgeon: Surgeon(s) and Role: [...] after fentanyl overdose. He was taken to [facility] where he had a cardiac arrest,??ROSC, and??he was intubated and sedated. He??was then transferred to [facility] for further care. ??Labs showed he had [...] then ext[facility]. Valdovinos was present [...] Modi MD 01/29/2022 Acute Pain Service Pager: [phone] I have seen and examined the patient, [...] Major MD 01/28/2022 Acute Pain Service Pager: [phone] Associated attestation - Nathan Ricardo MD - [...] Affect: flat Labs: Art pH/pCO2/pO2/HCO3: 7.45/33/114/22.4 (01/25 622) WBC/Hgb/Hct/Plts: 18.9* 11.6* 34.2* 100* (01/27 1022) [...] Major MD 01/27/2022 Acute Pain Service Pager: [phone] Associated attestation - Nathan Ricardo MD - 02/03/2022 4:20 PM EDT I have seen and examined the patient, providing hutton components as outlined below. I have reviewed the resident???s above note; Consult Note - Adela Hackett DO - 01/27/2022 9:05 AM EDT Neurology Consultation Note - 01/27/2022 Patient name: Alix Holland Date of : 1990 PCP: None Primary Team #: ICU (Juan #[id number]) CC: findings of CTH HPI: Alix Holland [...] he was following commands upon arrival to [facility] ICU. CTH showed bilateral symmetric globus pallidi [...] 06) ??? sodium phosphate 15 mL/hr (01/27/22 0800) ??? calcium gluconate Stopped (01/25/22 1204) ??? tube feeding diet 10 mL/hr at 01/27/22 0800 ??? NORepinephrine Stopped (01/26/22 2017) ??? fentaNYL 50 mcg/hr (01/27/22 0800) ??? dexmedeTOMIDine 0.5 mcg/kg/hr (01/27/22 08) PRN [...] 4.1) performed by Sigifredo Garcia MD at [facility] MAIN OR ? ? PRO DEBRIDEMENT BONE MUSCLE &/FASCIA 20 SQ CM/< Left 01/26/2022 DEBRIDEMENT SKIN, SUBCU, MUSCLE, BONE, LOWER EXTREMITY (WRVU 4.1) performed by Sigifredo Garcia MD [facility] MAIN OR ??? PRO DECOMP FOREARM, 2 COMPART, W/O DEBRIDE Left 01/23/2022 FASCIOTOMY; FOREARM AND\OR WRIST, FLEXOR & EXTENS. COMP (WRVU 10.79) performed by Sigifredo Garcia MD at [facility] MAIN OR ??? PRO DECOMPRESS ANT/LAT+POST LEG CMPART Left 01/23/2022 FASCIOTOMY, LOWER LEG, ALL COMPARTMENTS (WRVU 7.82) performed by Sigifredo Garcia MD at [facility] MAIN OR ??? PRO INCIS OF HIP/THIGH FASCIA Left 01/23/2022 @FASCIOTOMY,THIGH OR HIP FOR COMPARTMENT SYNDROME (WRVU 12.89) performed by Sigifredo Garcia MD at [facility] MAIN OR ??? PRO OPEN TREAT MANDIBLE CONDYLE FX, COMPL 04/27/2013 OPEN TREATMENT, COMPLEX MANDIBLE FX., MULTI APPROACH, W/ FIXATION performed by Kishore Neil MD at [facility] MAIN OR ??? PRO REVISE MEDIAN N/CARPAL TUNNEL SURG Left 01/23/2022 MEDIAN NERVE DECOMPRESSION (CARPAL TUNNEL RELEASE) (WRVU 4.97) performed by Sigifredo Garcia MD at [facility] MAIN OR Home Medications: No current [...] year, name, knows why he is at [facility], knows he is at [facility], follows complex commands. CN: PERRL, EOMI Tongue [...] as documented. Josh Boyd D.O. Neurology Department [email or web address] Plan of Care - Halley Hoyt, RN - 01/27/2022 5:14 AM EDT OUTCOME [...] Lidocaine patches placed. Pain is always reported 10/10. Pt continues with tachycardia 130s-140s sustained with [...] Garcia MD - 01/26/2022 4:23 PM EDT [facility] Operative Note Patient Name: Alix Holland : [id number] MR#: [id number] Case Date: 01/26/2022 Surgeon: Surgeon(s) and Role: [...] after fentanyl overdose. He was taken to [facility] where he had a cardiac arrest, ROSC, and he was intubated and sedated. He was then transferred to [facility] for urther care. Labs showed he had hyperkalemia, acidosis, [...] Insurance: N/A Prescription Coverage: Yes Preferred Pharmacy: [facility], [place] - [address] [phone] [facility] - [place], [place] - [address] [facility] [address] [facility] [id number] Plan for discharge is: Pending Hospital Course [...] Component Value Date COVID19 Detected (A) 01/23/2022 [id number] Not Detected 04/26/2021 Past medical History: Past [...] Alix) would be surrogate decision maker per [place] surrogate decision making law. (Only good for 180 days) Any patient receiving care at [facility] must abide by [place] law. The hierarchy for surrogate decision making [...] (i) The agent with financial power of telephone plant power operator or a conservator appointed in accordance with [...] Current DME: none Home Address listed as: [address] [address] Social & Family Supports: All names listed below confirmed with patient as current and correct Extended Emergency Contact Information Primary Emergency Contact: Josefina Holland Relation: Mother Secondary Emergency Contact: Marylou Holland [facility] Relation: Sibling Father: Alix Holland [facility] Current Care Provided by: self Provides [...] N/A Prescription Coverage: No Preferred Pharmacy: [facility] [address], [place] [address] [facility] [id number] [facility] [id number] - [place], [place] - [address] [facility] [address] [facility] [address] Status: Patient is a : No Primary [...] with transition of care planning. ARIN Lieberman, M-SW Continuing Plaster Block LayerPastry Mixer of Neurology [phone] Consult Note - Adela Hackett DO - 01/25/2022 9:59 AM EDT Neurology Consultation Note - 01/25/2022 Patient name: Alix Holland Date of : 1990 PCP: None Primary Team #: ICU (Juan #[id number]) CC: findings of CTH HPI: Alix Holland [...] he was following commands upon arrival to [facility] ICU. CTH showed bilateral symmetric globus pallidi [...] 10.79) performed by Sigifredo Garcia MD at [facility] MAIN OR ??? PRO DECOMPRESS ANT/LAT+POST LEG CMPART Left 01/23/2022 FASCIOTOMY, LOWER LEG, ALL COMPARTMENTS (WRVU 7.82) performed by Sigifredo Garcia MD at [facility] MAIN OR ??? PRO INCIS OF HIP/THIGH FASCIA Left 01/23/2022 @FASCIOTOMY,THIGH OR HIP FOR COMPARTMENT SYNDROME (WRVU 12.89) performed by Sigifredo Garcia MD at [facility] MAIN OR ??? PRO OPEN TREAT MANDIBLE CONDYLE FX, COMPL 04/27/2013 OPEN TREATMENT, COMPLEX MANDIBLE FX., MULTI APPROACH, W/ FIXATION performed by Kishore Neli MD at [facility] MAIN OR ??? PRO REVISE MEDIAN N/CARPAL TUNNEL SURG Left 01/23/2022 MEDIAN NERVE DECOMPRESSION (CARPAL TUNNEL RELEASE) (WRVU 4.97) performed by Sigifredo Garcia MD at [facility] MAIN OR Home Medications: No current [...] Hackett DO Neurology PGY-2 Neurology Consult Service# [id number] 01/25/2022 Associated attestation - Josh Boyd DO [...] as documented. Josh Boyd D.O. Neurology Department [facility] [email or web address] Consult Note - Charlotte Castañeda RD - [...] On CRRT If patient switches to shift [employer] or HD please consult nutrition for new [...] for vitamins and minerals. Monitor weight Monitor lydiamond I was able to discuss plan with provider ARLETH Martinez pager #[phone]. All Active TF Orders: Nepro with goal [...] encounter: 113 kg (249 lb 1.9 oz). [place] Body Weight: 81 kg Usual Body Weight: [...] today for wound vacs. Estimated needs: Calories: [phone] (20-25 kcal/kg IBW) for the first 7-10 [...] Protein-calorie Malnutrition: Not enough data to assess (Keven adams al, JPEN J Parenteral Enteral Nutr. 2012 November; 36(3): 273-83) Nutrition to continue to follow up while inpatient Thank you, Charlotte Castañeda RD Pager #:[phone] Plan of Care - Forest Blankenship RN [...] 1990 PCP: None Primary Team #: ICU (Green #[id number]) CC: findings of CTH HPI: Alix Holland [...] he was following commands upon arrival to [facility] ICU. CTH showed bilateral symmetric globus pallidi [...] ??? [MAR Hold] propofoL 30 mcg/kg/min (01/23/22 06) ??? [MAR Hold] lactated Ringers 250 mL/hr (01/23/22 0237) ??? [MAR Hold] sodium bicarbonate 150 mEq in dextrose 5% 1150 mL infusion 100 mL/hr (01/23/22 0655) ??? [MAR Hold] bicarbonate CRRT with 3 mEq/L K+, 3 mEq/L Ca++ Stopped (01/23/22729) ??? [MAR Hold] sodium phosphate Stopped (01/23/22729) ??? [MAR Hold] calcium gluconate Stopped (01/23/22729) [...] FIXATION performed by Kishore Neil MD at [facility] MAIN OR Home Medications: No current [...] >220,000 (H) 0 - 200 unit/L TSH [place] Result Value Ref Range TSH 7.69 (H) [...] Value Ref Range T&S only valid at [facility] Triglyceride Result Value Ref Range Triglycerides [...] mcL Appearance UA Cloudy (A) Clear Spec [place] UA >=1.030 (A) 1.006 - 1.030 Color UA Brown (A) RBC UA 2 0 - 3 /HPF WBC UA <1 0 - 3 /HPF Bacteria UA Many (A) None /HPF Squam Epith UA 1 <=4 /HPF Hyaline Cast UA <1 0 - 2 /LPF Amorph Mila UA Many (A) None /HPF Rapid Drug Screen, Urine (MEGHNA Request) Result Value Ref Range MEHGNA Conf Requested No MEGHNA Requested See Comment [...] as documented. Josh Boyd D.O. Neurology Department [facility] [email or web address] Op Note - Sigifredo Garcia MD - 01/23/2022 8:28 AM EDT [facility] Operative Note Patient Name: Alix Holland : [id number] MR#: [id number] Case Date: 01/23/2022 Surgeon: Surgeon(s) and Role: [...] after fentanyl overdose. He was taken to [facility] where he had a cardiac arrest, ROSC, and he was intubated and sedated. He was then transferred to [facility] for urther care. Labs showed he had hyperkalemia, acidosis, ALTHEA. There was concern for a swollen left forearm so orthopedics was consulted. On exam his forearm was firm, but exam was limited due to patient's mental status. Therefore Exoprise pressure monitor was used to measure the [...] to the transverse carpal ligament. Using a [facility] retractors, the transverse carpal ligament was exposed [...] chloride 0.9% 50mL ??? NORepinephrine 8 mcg/min (01/23/22138) ??? vasopressin Stopped (01/23/22129) ??? fentaNYL 50 [...] male who presents with signs and measured [place] compartment pressures concerning for compartment syndrome ( [...] evaluation and treatment. Please page Orthopaedic consults ([phone]) with any questions or co ncerns. ?? [...] father afterfentanyl overdose. He was taken to [facility] where he had a cardiac arrest, ROSC, and he was intubated and sedated. He was then transferred to [facility] for further care. Labs showed he had [...] visit Neurology Summer Wiggins MD [facility] NEUROLOGY [place], [place] [address] (Wo rk) Pending Results Name Type Priority Associated Diagnoses [...] the results section. DRESSING CHANGE (FOR Routine 02/22/2022 6:12 OTHER [...] i n the results section. DEBRIDEMENT SKIN, 02/15/2022 7:42 compartment syndrome SUBCU, [...] n the results section. BLOOD GAS VENOUS ([facility]) STAT 01/26/2022 6:19 Re sults for this [...] are i n the results section. CT [place] Routine 01/24/2022 11:32 Re [...] P athologist Signature Neutrophils % 65.3 % [facility] LABORATORY Neutr Abs (ANC) 5.26 1.70 - [facility] 6.10 [facility] x10(3)/[facility] LABORATORY Lymphocytes % 17.2 % [facility] Lymphocytes Abs 1.4 0.9 - 3.2 [facility] x10(3)/[facility] LABORATORY Monocytes % 11.0 % [facility] Monocyte Abs 0.9 0.3 - 0.9 [facility] x10(3)/[facility] LABORATORY Eosinophils % 4.6 % [facility] Eosinophils Abs 0.4 0.0 - 0.4 [facility] x10(3)/[facility] LABORATORY Basophils % 0.7 % [facility] Basophils Abs 0.1 0.0 - 0.1 [place] 863410(3)/[facility] LABORATORY Immature Gran % 1.20 % [facility] Comment: Immature granulocytes(IG's)percentage an d absolute count will include metamyelocytes, myelocytes, and promyelo cytes. Blood smears from CBCs yielding IG's will be scanned manually for concor dance. If this scan disagrees with the automated IG or if promyelocytes are not ed, a manual differential will be performed. Gemini Gran Abs 0.10 (H) 0.00 - 0.04 x10(3)/[facility] LABORATORY Specimen Anatomical Collection Method Collection Time Receive d Time (Source) Location / / Volume Laterality Blood 03/23/2022 4:35 AM 5:10 EDT AM EDT Resulting Agency Comment Spec In Lab Jhony Carnes MD HEMATOLOGY ORDERABLES Performing Organization Address City/State/[place] [address] (ABNORMAL) Hemogram (03/23/2022 4:35 AM EDT) Analysis Performed At Patho logist Time Signature WBC 8.1 4.0 - 9.5 [facility] x10(3)/[facility] LABORATORY RBC 2.96 (L) 4.58 - [facility] 5.54 [facility] x10(6)/[facility] LABORATORY Hemoglobin 8.9 (L) 13.7 - [facility] 16.5 g/dL [facility] Hematocrit 26.2 (L) 40.5 - [facility] 48.5 % [facility] MCV 88.5 82.9 - [facility] LABORATORY MCH 30.1 27.5 - [facility] 32.1 pg [facility] MCHC 34.0 32.0 - [facility] 35.7 g/dL [facility] Platelets 230 145 - 357 [facility] x10(3)/[facility] LABORATORY RDWSD 48.9 (H) 36.0 - [facility] 45.0 [facility] LABORATORY RDWCV 15.3 (H) 11.4 - [facility] 13.8 % [facility] LABOR[facility] MPV 9.8 7.6 - 12.9 [facility] LABORATORY nRBC % Auto 0.0 % [facility] LABORATORY nRBC Abs Auto 0.000 0.000 - [facility] 0.000 [facility] x10(3)/[facility] LABORATORY Specimen Anatomical Collection Method Collection Time Receive d Time (Source) Location / / Volume Laterality Blood 03/23/2022 4:35 AM 2 5:10 EDT AM EDT Resulting Agency Comment Spec In Lab Jhony Carnes MD HEMATOLOGY ORDERABLES Performing Organization Address City/State/[place] [address] (ABNORMAL) Basic Metabolic Panel (non-fasting) (03/23/2022 3:00 AM EDT) P athologist Signature Glucose Lvl 102 65 - 199 [facility] mg/dL [facility] Comment: Diabetes: >=200 mg/dL plus symp toms BUN 15 10 - 20 mg/dL [facility] LAB[facility] Creatinine 0.55 (L) 0.80 - 1.50 mg/dL [facility] LABORATORY Sodium 139 135 - 145 mmol/L [facility] Potassium 4.1 3.5 - 5.0 mmol/L [facility] Comment: Please note: ??Patients with WBC >100,00 0 may have falsely elevated Potassium levels. ??For accurate Potassium quantif ication in these patients send serum separator tube (gold top) for subsequent determinations. ??Contact the Clinical Chemistry Laboratory if there are any qu estions. Chloride 101 98 - 107 mmol/L [facility] CO2 25 22 - 31 mmol/L [facility] Anion Gap 13 5 - 15 mmol/L [facility] Calcium 9.6 8.5 - 10.5 mg/dL [facility] LABOR[facility] Estimated GFR 137 >=60 mL/min/1.73 m?? [facility] Comment: This patient's estimated GFR [...] Organization Address City/State/[place] [address] (ABNORMAL) Differential, Automated (03/22/2022 4:15 AM EDT) [facility] Method Time Signature Neutrophils % 63.3 % [facility]OR[facility]ORY Neutr Abs (ANC) 5.68 1.70 - [facility] 6.10 [facility] x10(3)/[facility] LABORATORY Lymphocytes % 17.7 % [facility] Lymphocytes Abs 1.6 0.9 - 3.2 [facility] x10(3)/[facility] LABORATORY Monocytes % 12.3 % [facility] LABOR[facility]ORY Monocyte Abs 1.1 (H) 0.3 - 0.9 [facility] x10(3)/[facility] LABORATORY Eosinophils % 4.3 % [facility] Eosinophils Abs 0.4 0.0 - 0.4 [facility] x10(3)/[facility] LABORATORY Basophils % 0.7 % [facility] Basophils Abs 0.1 0.0 - 0.1 [facility] x10(3)/[facility] LABORATORY Immature Gran % 1.70 % [facility] Comment: Immature granulocytes(IG's)percentage an d absolute count will include metamyelocytes, myelocytes, and promyelo cytes. Blood smears from CBCs yielding IG's will be scanned manually for concor dance. If this scan disagrees with the automated IG or if promyelocytes are not ed, a manual differential will be performed. Gemini Gran Abs 0.15 (H) 0.00 - 0.04 x10(3)/[facility] LABORATORY Specimen Anatomical Collection Method Collection Time Receive d Time (Source) Location / / Volume Laterality Blood 03/22/2022 4:15 AM 4:35 EDT AM EDT Resulting Agency Comment Spec In Lab Batsheva Hill MD HEMATOLOGY ORDERABLES Performing Organization Address City/State/[place] [address] (ABNORMAL) Hemogram (03/22/2022 4:15 AM EDT) Analysis Performed At Patho logist Time Signature WBC 9.0 4.0 - 9.5 [facility] x10(3)/[facility] LABORATORY RBC 3.20 (L) 4.58 - [facility] 5.54 [facility] x10(6)/[facility] LABORATORY Hemoglobin 9.5 (L) 13.7 - [facility] 16.5 g/dL [facility] LABOR[facility]ORY Hematocrit 28.0 (L) 40.5 - [facility] 48.5 % [facility] MCV 87.5 82.9 - [place] [place] 93.1 [facility] LABORATORY MCH 29.7 27.5 - [facility] [place] 32.1 pg [facility] MCHC 33.9 32.0 - [facility] [place] 35.7 g/dL [facility] Platelets 248 145 - 357 [facility] x10(3)/[facility] LABORATORY RDWSD 47.8 (H) 36.0 - [facility] [place] 45.0 [facility] LABORATORY RDWCV 14.9 (H) 11.4 - [facility] [place] 13.8 % [facility] LABORATORY MPV 8.8 7.6 - 12.9 [facility] LABORATORY nRBC % Auto 0.0 % [facility] LABORATORY nRBC Abs Auto 0.000 0.000 - [facility] [place] 0.000 [facility] x10(3)/[facility] LABORATORY Specimen Anatomical Collection Method Collection Time Receive d Time (Source) Location / / Volume Laterality Blood 03/22/2022 4:15 AM 4:35 EDT AM EDT Resulting Agency Comment Spec In Lab Batsheva Hill MD HEMATOLOGY ORDERABLES Performing Organization Address City/State/[place] [address] (ABNORMAL) Basic Metabolic Panel (non-fasting) (03/22/2022 4:15 AM EDT) P athologist Signature Glucose Lvl 98 65 - 199 [facility] mg/dL [facility] LAB[facility]ORY Comment: Diabetes: >=200 mg/dL plus symp toms BUN 16 10 - 20 mg/dL [facility] LAB[facility] Creatinine 0.52 (L) 0.80 - 1.50 mg/dL [facility] LABOR[facility]ORY Sodium 137 135 - 145 mmol/L [facility] Potassium 4.0 3.5 - 5.0 mmol/L [facility] LABORATORY Comment: Please note: ??Patients with WBC >100,00 0 may have falsely elevated Potassium levels. ??For accurate Potassium quantif ication in these patients send serum separator tube (gold top) for subsequent determinations. ??Contact the Clinical Chemistry Laboratory if there are any qu estions. Chloride 100 98 - 107 mmol/L [facility] CO2 24 22 - 31 mmol/L [facility] Anion Gap 13 5 - 15 mmol/L [facility] Calcium 9.6 8.5 - 10.5 mg/dL [facility] LABOR[facility] Estimated GFR 139 >=60 mL/min/1.73 m?? [facility] Comment: This patient's estimated GFR [...] Organization Address City/State/[place] [address] (ABNORMAL) Basic Metabolic Panel (non-fasting) (03/20/2022 12:27 PM EDT) P athologist Signature Glucose Lvl 94 65 - 199 [facility] mg/dL [facility] Comment: Diabetes: >=200 mg/dL plus symp toms BUN 13 10 - 20 mg/dL [facility] Creatinine 0.67 (L) 0.80 - 1.50 mg/dL [facility] LABOR[facility] Sodium 140 135 - 145 mmol/L [facility] Potassium 4.3 3.5 - 5.0 mmol/L [facility] LAB[facility] Comment: Please note: ??Patients with WBC >100,00 0 may have falsely elevated Potassium levels. ??For accurate Potassium quantif ication in these patients send serum separator tube (gold top) for subsequent determinations. ??Contact the Clinical Chemistry Laboratory if there are any qu estions. Chloride 104 98 - 107 mmol/L [facility] CO2 23 22 - 31 mmol/L [facility] Anion Gap 13 5 - 15 mmol/L [facility] Calcium 9.6 8.5 - 10.5 mg/dL [facility] Estimated GFR 129 >=60 mL/min/1.73 m?? [facility] Comment: This patient's estimated GFR [...] Organization Address City/State/[place] [address] Green Tube HOLD (03/20/2022 12:27 PM EDT) athologist Signature Green Hold Sample in [facility] LABORATORY Comment: Collection date/time has been modified t o: 12:27:00. ??Previous collection date/time: 12:28:00 . Corrected from Sample in lab. [NA] on 12:29:23 EDT by Kevon Dickens Specimen Anatomical Collection Method Collection Time Receive d Time (Source) Location / / Volume Laterality Blood No Charge / 03/20/2022 12:27 03/20/2022 Unknown PM EDT 12:28 PM EDT Veto Hidalgo MD CHEMISTRY ORDERABLES Performing Organization Address City/[facility]/ZIP Code Phon e Number [address] Phosphorus (03/20/2022 12:00 PM EDT) P athologist Signature Phosphorus 3.8 2.5 - 4.5 [facility] mg/dL [facility] Specimen Anatomical Collection Method Collection Time Receive d Time (Source) Location / / Volume Laterality Blood 03/20/2022 12:00 03/20/2022 PM EDT 12:26 PM EDT Resulting Agency Comment Spec In Lab Jeanette Chatterjee MD CHEMISTRY ORDERABLES Performing Organization Address City/[facility]/[place] [address] Magnesium (03/20/2022 12:00 PM EDT) P athologist Signature Magnesium 0.75 0.69 - 1.07 [facility] mmol/L [facility] LABOR[facility]ORY Specimen Anatomical Collection Method Collection Time Receive d Time (Source) Location / / Volume Laterality Blood 03/20/2022 12:00 03/20/2022 PM EDT 12:26 PM EDT Resulting Agency Comment Spec In Lab Jeanette Chatterjee MD CHEMISTRY ORDERABLES Performing Organization Address City/[facility]/ZIP [facility] Phon e Number [address] Vancomycin, trough (03/14/2022 3:09 PM EDT) P athologist Signature Vanc Trough 16.1 mg/L [facility]ORATORY Comment: Therapeutic range for complicated [...] Organization Address City/State/[place] [address] (ABNORMAL) Differential, Automated (03/13/2022 6:02 AM EDT) athologist Signature Neutrophils % 68.2 % [facility]OR[facility]ORY Neutr Abs (ANC) 5.47 1.70 - [facility] 6.10 [facility] x10(3)/[facility] LABORATORY Lymphocytes % 17.0 % [facility] LABORATORY Lymphocytes Abs 1.4 0.9 - 3.2 [facility] x10(3)/[facility] LABORATORY Monocytes % 8.0 % [facility]ORY Monocyte Abs 0.6 0.3 - 0.9 [facility] x10(3)/[facility] LABORATORY Eosinophils % 4.2 % [facility] LABORATORY Eosinophils Abs 0.3 0.0 - 0.4 [facility] x10(3)/[facility] LABORATORY Basophils % 0.5 % [facility]ORY Basophils Abs 0.0 0.0 - 0.1 [facility] x10(3)/[facility] LABORATORY Immature Gran % 2.10 % [facility]ORY Comment: Immature granulocytes(IG's)percentage an d absolute count will include metamyelocytes, myelocytes, and promyelo cytes. Blood smears from CBCs yielding IG's will be scanned manually for concor dance. If this scan disagrees with the automated IG or if promyelocytes are not ed, a manual differential will be performed. Gemini Gran Abs 0.17 (H) 0.00 - 0.04 x10(3)/[facility] LABORATORY Specimen Anatomical Collection Method Collection Time Receive d Time (Source) Location / / Volume Laterality Blood 03/13/2022 6:02 AM 2 6:17 EDT AM EDT Resulting Agency Comment Spec In Lab Nancy Chahal MD HEMATOLOGY ORDERABLES Performing Organization Address City/State/[place] [address] (ABNORMAL) Hemogram (03/13/2022 6:02 AM EDT) Analysis Performed At Patho logist Time Signature WBC 8.0 4.0 - 9.5 [facility] x[facility](3)/[facility] LABORATORY RBC 3.12 (L) 4.58 - [facility] MANDO 5.54 [facility] x10(6)/[facility] LABORATORY Hemoglobin 9.1 (L) 13.7 - [facility] MANDO 16.5 g/dL [facility] Hematocrit 27.5 (L) 40.5 - [facility] 48.5 % [facility] MCV 88.1 82.9 - [facility] MANDO 93.1 [facility] LABORATORY MCH 29.2 27.5 - [facility] [place] 32.1 pg [facility] MCHC 33.1 32.0 - [facility] MANDO 35.7 g/dL [facility] Platelets 254 145 - 357 [facility] x10(3)/[facility] LABORATORY RDWSD 49.4 (H) 36.0 - [facility] MANDO 45.0 [facility] LABORATORY RDWCV 15.5 (H) 11.4 - [facility] MANDO 13.8 % [facility] LABORATORY MPV 8.4 7.6 - 12.9 [facility] nRBC % Auto 0.0 % [facility] LABORATORY nRBC Abs Auto 0.000 0.000 - [facility] MANDO 0.000 [facility] x10(3)/[facility] LABORATORY Specimen Anatomical Collection Method Collection Time Receive d Time (Source) Location / / Volume Laterality Blood 03/13/2022 6:02 AM 2 6:17 EDT AM EDT Resulting Agency Comment Spec In Lab Nancy Chahal MD HEMATOLOGY ORDERABLES Performing Organization Address City/State/ZIP Code Phon e Number [place] (ABNORMAL) Phosphorus (03/13/2022 6:02 AM EDT) athologist Signature Phosphorus 4.9 (H) 2.5 - 4.5 [facility] mg/dL [facility] Specimen Anatomical Collection Method Collection Time Receive d Time (Source) Location / / Volume Laterality Blood 03/13/2022 6:02 AM 2 6:17 EDT AM EDT Resulting Agency Comment Spec In Lab Floridalma Sandoval MD CHEMISTRY ORDERABLES Performing Organization Address City/State/ZIP Code Phon e Number [address] Magnesium (03/13/2022 6:02 AM EDT) athologist Signature Magnesium 0.70 0.69 - 1.07 [facility] mmol/L [facility] LAB[facility]ORY Specimen Anatomical Collection Method Collection Time Receive d Time (Source) Location / / Volume Laterality Blood 03/13/2022 6:02 AM 2 6:17 EDT AM EDT Resulting Agency Comment Spec In Lab Floridalma Sandoval MD CHEMISTRY ORDERABLES Performing Organization Address City/[facility]/ZIP Code Phon e Number [address] (ABNORMAL) Basic Metabolic Panel (non-fasting) (03/13/2022 6:02 AM EDT) athologist Signature Glucose Lvl 100 65 - 199 [facility] mg/dL [facility] Comment: Diabetes: >=200 mg/dL plus symp toms BUN 12 10 - 20 mg/dL [facility] Creatinine 0.65 (L) 0.80 - 1.50 mg/dL [facility] Sodium 139 135 - 145 mmol/L [facility] Potassium 3.9 3.5 - 5.0 mmol/L [facility] Comment: Please note: ??Patients with WBC >100,00 0 may have falsely elevated Potassium levels. ??For accurate Potassium quantif ication in these patients send serum separator tube (gold top) for subsequent determinations. ??Contact the Clinical Chemistry Laboratory if there are any qu estions. Chloride 101 98 - 107 mmol/L [facility] CO2 25 22 - 31 mmol/L [facility] Anion Gap 13 5 - 15 mmol/L [facility] Calcium 9.6 8.5 - 10.5 mg/dL [facility] Estimated GFR 130 >=60 mL/min/1.73 m?? [facility] Comment: This patient's estimated GFR [...] Organization Address City/State/[place] [address] (ABNORMAL) Differential, Automated (03/10/2022 5:45 AM EDT) [facility] gist Method Time Signature Neutrophils % 58.5 % [facility] Neutr Abs (ANC) 4.21 1.70 - [facility] 6.10 [facility] x10(3)/[facility] LABORATORY Lymphocytes % 17.8 % [facility] Lymphocytes Abs 1.3 0.9 - 3.2 [facility] x10(3)/[facility] LABORATORY Monocytes % 13.5 % [facility] Monocyte Abs 1.0 (H) 0.3 - 0.9 [facility] x10(3)/[facility] LABORATORY Eosinophils % 5.3 % [facility] Eosinophils Abs 0.4 0.0 - 0.4 [facility] x10(3)/[facility] LABORATORY Basophils % 0.6 % [facility] Basophils Abs 0.0 0.0 - 0.1 [facility] x10(3)/[facility] LABORATORY Immature Gran % 4.30 % [facility] Comment: Immature granulocytes(IG's)percentage an d absolute count will include metamyelocytes, myelocytes, and promyelo cytes. Blood smears from CBCs yielding IG's will be scanned manually for concor dance. If this scan disagrees with the automated IG or if promyelocytes are not ed, a manual differential will be performed. Gemini Gran Abs 0.31 (H) 0.00 - 0.04 x10(3)/[facility] LABORATORY Specimen Anatomical Collection Method Collection Time Receive d Time (Source) Location / / Volume Laterality Blood 03/10/2022 5:45 AM 6:05 EDT AM EDT Resulting Agency Comment Spec In Lab Nancy Chahal MD HEMATOLOGY ORDERABLES Performing Organization Address City/State/[place] [address] (ABNORMAL) Hemogram (03/10/2022 5:45 AM EDT) Analysis Performed At Patho logist Time Signature WBC 7.2 4.0 - 9.5 [facility] x10(3)/[facility] LABORATORY RBC 3.13 (L) 4.58 - [facility] 5.54 [facility] x10(6)/[facility] LABORATORY Hemoglobin 9.1 (L) 13.7 - [facility] g/dL [facility] Hematocrit 27.3 (L) 40.5 - [facility] 48.5 % [facility] MCV 87.2 82.9 - [facility] 93.1 fL [facility] MCH 29.1 27.5 - [facility] 32.1 pg [facility] MCHC 33.3 32.0 - [facility] 35.7 g/dL [facility] Platelets 256 145 - 357 [facility] x10(3)/[facility] LABORATORY RDWSD 50.6 (H) 36.0 - [facility] [place] 45.0 [facility] LABORATORY RDWCV 15.9 (H) 11.4 - [facility] MANDO 13.8 % [facility] MPV 8.5 7.6 - 12.9 [facility] MANDO [facility] LABORATORY nRBC % Auto 0.0 % [facility] nRBC Abs Auto 0.000 0.000 - [facility] 0.000 [facility] x10(3)/[facility] LABORATORY Specimen Anatomical Collection Method Collection Time Receive d Time (Source) Location / / Volume Laterality Blood 03/10/2022 5:45 AM 2 6:05 EDT AM EDT Resulting Agency Comment Spec In Lab Nancy Chahal MD HEMATOLOGY ORDERABLES Performing Organization Address City/State/ZIP Code Phon e Number [address] (ABNORMAL) Phosphorus (03/10/2022 5:45 AM EDT) P athologist Signature Phosphorus 4.6 (H) 2.5 - 4.5 [facility] M[place] mg/dL [facility] Specimen Anatomical Collection Method Collection Time Receive d Time (Source) Location / / Volume Laterality Blood 03/10/2022 5:45 AM 2 6:05 EDT AM EDT Resulting Agency Comment Spec In Lab Floridalma Sandoval MD CHEMISTRY ORDERABLES Performing Organization Address City/State/ZIP Code Phon e Number [address] Magnesium (03/10/2022 5:45 AM EDT) P athologist Signature Magnesium 0.77 0.69 - 1.07 [facility] mmol/L [facility] Specimen Anatomical Collection Method Collection Time Receive d Time (Source) Location / / Volume Laterality Blood 03/10/2022 5:45 AM 2 6:05 EDT AM EDT Resulting Agency Comment Spec In Lab Floridalma Sandoval MD CHEMISTRY ORDERABLES Performing Organization Address City/State/[place] [address] Basic Metabolic Panel (non-fasting) (03/10/2022 5:45 AM EDT) P athologist Signature Glucose Lvl 95 65 - 199 [facility] mg/dL [facility] Comment: Diabetes: >=200 mg/dL plus symp toms BUN 20 10 - 20 mg/dL [facility] Creatinine 0.85 0.80 - 1.50 mg/dL [facility] Sodium 142 135 - 145 mmol/L [facility] Potassium 4.0 3.5 - 5.0 mmol/L [facility] Comment: Please note: ??Patients with WBC >100,00 0 may have falsely elevated Potassium levels. ??For accurate Potassium quantif ication in these patients send serum separator tube (gold top) for subsequent determinations. ??Contact the Clinical Chemistry Laboratory if there are any qu estions. Chloride 103 98 - 107 mmol/L [facility] CO2 25 22 - 31 mmol/L [facility] Anion Gap 14 5 - 15 mmol/L [facility] Calcium 9.1 8.5 - 10.5 mg/dL [facility] Estimated GFR 120 >=60 mL/min/1.73 m?? [facility] Comment: This patient's estimated GFR [...] Sandoval MD CHEMISTRY ORDERABLES Performing Organization Address City/[facility]/ZIP Code Phon e Number [address] Anaerobic Culture (03/05/2022 11:05 AM EDT) [facility] Signature Anaerobic No anaerobic [facility] Culture organisms [facility] LABORATORY Specimen Anatomical Collection Method Collection Time Receive d Time (Source) Location / / Volume Laterality Fluid 03/05/2022 11:05 03/05/2022 AM EDT 12:02 PM EDT Comment: Fluid from left thigh Resulting Agency Comment Spec In Lab Elaine Dos Santos MD MICROBIOLOGY - GENERAL ORDER JT Performing Organization Address City/[facility]/[place] [address] (ABNORMAL) Body Fluid Culture, Aerobic (03/05/2022 11:05 AM EDT) Component Value Ref Test Analysis Performed At [email or web address] Range Method Time Signature Body Fluid Moderate Staphylococcus aureus, MRSA [facility] Culture Many Pseudomonas aeruginosa [facility] Gram Stain Cytocentrifuge Gram Stain performed [facility] Neutrophils seen [place] Rare Gram Positive Cocci seen [facility] Rare Gram Negative Rods seen [facility] () LABORATORY Organism Staphylococcus [facility] aureus, MRSA (A) [facility]ORY Organism Pseudomonas [facility] aeruginosa (A) [facility]ORY Organism Gram Positive [facility] Cocci (A) [facility] Organism Gram Negative [facility] Rods (A) [facility] Specimen Anatomical Collection Method Collection Time [...] Comment: Gentamicin is not a ppropriate for Wise-therapy. Staphylococcus aureus, mrsa Linezolid VITEK 2 METHOD Sens itive Staphylococcus aureus, mrsa Oxacillin VITEK 2 METHOD Resi girisht Comment: MRSA, Note Nafcil arnoldo Resistance Staphylococcus [...] Organization Address City/State/[place] [address] (ABNORMAL) Basic Metabolic Panel (non-fasting) (03/04/2022 12:54 AM EDT) P athologist Signature Glucose Lvl 97 65 - 199 [facility] mg/dL [facility] Comment: Diabetes: >=200 mg/dL plus symp toms BUN 23 (H) 10 - 20 mg/dL [facility] Creatinine 1.23 0.80 - 1.50 mg/dL [facility] Sodium 141 135 - 145 mmol/L [facility] Potassium 3.7 3.5 - 5.0 mmol/L [facility] Comment: Please note: ??Patients with WBC >100,00 0 may have falsely elevated Potassium levels. ??For accurate Potassium quantif ication in these patients send serum separator tube (gold top) for subsequent determinations. ??Contact the Clinical Chemistry Laboratory if there are any qu estions. Chloride 101 98 - 107 mmol/L [facility] CO2 25 22 - 31 mmol/L [facility] Anion Gap 15 5 - 15 mmol/L [facility] Calcium 8.7 8.5 - 10.5 mg/dL [facility] Estimated GFR 81 >=60 mL/min/1.73 m?? [facility] Comment: This patient's estimated GFR [...] Organization Address City/State/[place] [address] PICC Line: Contact Vascular Access Page [phone] Extremity to exclude: DO NOT use LEFT [...] the planned procedu re. Hand Hygiene: The evidence specialist did perform hand hygiene pr ior to line insertion. Catheter type: PICC Lot number: [id number] Procedure Technique: Skin was prepped with chlorhexidine. [...] who have questions please contact the health manager wound care that requested your imaging first. ? Electronically signed by: Danielle Figueroa MD, [facility] ([phone]), at 03/03/2022 2:49 PM Narrative 03/03/2022 2:49 [...] ho have questions please contact the health manager wound care that requested your imaging first. Jayme Armstrong MD IMG FLUORO ORDERABLES (ABNORMAL) Differential, Automated (03/03/2022 4:34 AM EDT) [facility] Method Time Signature Neutrophils % 49.2 % [facility] Neutr Abs (ANC) 3.20 1.70 - [facility] 6.10 [facility] x10(3)/[facility] LABORATORY Lymphocytes % 23.5 % [facility] Lymphocytes Abs 1.5 0.9 - 3.2 [facility] x10(3)/[facility] LABORATORY Monocytes % 12.9 % [facility] Monocyte Abs 0.8 0.3 - 0.9 [facility] x10(3)/[facility] LABORATORY Eosinophils % 10.4 % [facility] Eosinophils Abs 0.7 (H) 0.0 - 0.4 [facility] x10(3)/[facility] LABORATORY Basophils % 0.8 % [facility] Basophils Abs 0.0 0.0 - 0.1 [facility] x10(3)/[facility] LABORATORY Immature Gran % 3.20 % [facility] Comment: Immature granulocytes(IG's)percentage an d absolute count will include metamyelocytes, myelocytes, and promyelo cytes. Blood smears from CBCs yielding IG's will be scanned manually for yn crain. If this scan disagrees with the automated IG or if promyelocytes are not ed, a manual differential will be performed. Gemini Gran Abs 0.21 (H) 0.00 - 0.04 x10(3)/[facility] LABORATORY Specimen Anatomical Collection Method Collection Time Receive d Time (Source) Location / / Volume Laterality Blood 03/03/2022 4:34 AM 2 4:42 EDT AM EDT Resulting Agency Comment Spec In Lab Collette Valente MD HEMATOLOGY ORDERABLES Performing Organization Address City/State/ZIP Code Phon e Number [place] [id number]OS[address] LAB[address]ORY Drive (ABNORMAL) Hemogram (03/03/2022 4:34 AM EDT) Analysis Performed At Patho logist Time Signature WBC 6.5 4.0 - 9.[address] [facility] x[facility](3[facility] LABORATORY RBC 3.12 (L) 4.58 - [facility] MANDO 5.54 [facility] x10(6)/[facility] LABORATORY Hemoglobin 9.1 (L) 13.7 - [facility] 16.5 g/dL [facility] Hematocrit 26.8 (L) 40.5 - [facility] 48.5 % [facility] MCV 85.9 82.9 [facility] 93.1 [facility] LABORATORY MCH 29.2 27.5 - [facility] MANDO 32.1 pg [facility] MCHC 34.0 32.0 - [facility] MANDO 35.7 g/dL [facility] Platelets 276 145 - 357 [facility] x10(3)/[facility] LABORATORY RDWSD 50.6 (H) 36.0 - [facility] MANDO 45.0 [facility] LABORATORY RDWCV 16.1 (H) 11.4 - [facility] MANDO 13.8 % [facility] MPV 7.8 7.6 - 12.[address] [facility] LABORATORY nRBC % Auto 0.0 % [facility] nRBC Abs Auto 0.000 0.000 - [facility] [place] 0.000 [facility] x10(3)/[facility] LABORATORY Specimen Anatomical Collection Method Collection Time Receive d Time (Source) Location / / Volume Laterality Blood 03/03/2022 4:34 AM 2 4:42 EDT AM EDT Resulting Agency Comment Spec In Lab Collette Valente MD HEMATOLOGY ORDERABLES Performing Organization Address City/State/[place] [address] Magnesium (03/03/2022 4:34 AM EDT) athologist Signature Magnesium 0.80 0.69 - 1.07 [facility]/L [facility] Specimen Anatomical Collection Method Collection Time Receive d Time (Source) Location / / Volume Laterality Blood 03/03/2022 4:34 AM 2 4:42 EDT AM EDT Resulting Agency Comment Spec In Lab Jayme Armstrong MD CHEMISTRY ORDERABLES Performing Organization Address City/[facility] [place] [address] (ABNORMAL) Phosphorus (03/03/2022 4:34 AM EDT) athologist Signature Phosphorus 5.1 (H) 2.5 - 4.[address] [facility] mg/dL [facility] Specimen Anatomical Collection Method Collection Time Receive d Time (Source) Location / / Volume Laterality Blood 03/03/2022 4:34 AM 2 4:42 EDT AM EDT Resulting Agency Comment Spec In Lab Jayme Armstrong MD CHEMISTRY ORDERABLES Performing Organization Address City/[facility] [place] [address] (ABNORMAL) Basic Metabolic Panel (non-fasting) (03/03/2022 4:34 AM EDT) athologist Signature Glucose Lvl 105 65 - 199 [facility] mg/dL [facility] Comment: Diabetes: >=200 mg/dL plus symp toms BUN 28 (H) 10 - 20 mg/dL [facility] Creatinine 1.27 0.80 - 1.50 mg/dL [facility] Sodium 142 135 - 145 mmol/L [facility] Potassium 3.8 3.5 - 5.0 mmol/L [facility] Comment: Please note: ??Patients with WBC >100,00 0 may have falsely elevated Potassium levels. ??For accurate Potassium quantif ication in these patients send serum separator tube (gold top) for subsequent determinations. ??Contact the Clinical Chemistry Laboratory if there are any qu estions. Chloride 104 98 - 107 mmol/L [facility] CO2 25 22 - 31 mmol/L [facility] Anion Gap 13 5 - 15 mmol/L [facility] Calcium 9.0 8.5 - 10.5 mg/dL [facility] Estimated GFR 78 >=60 mL/min/1.73 m?? [facility] Comment: This patient's estimated GFR [...] Armstrong MD CHEMISTRY ORDERABLES Performing Organization Address City/[facility]/[place] [address] Albumin Level (03/02/2022 4:23 AM EDT) P athologist Signature Albumin 3.3 3.2 - 5.2 [facility] g/dL [facility] Specimen Anatomical Collection Method Collection Time Receive d Time (Source) Location / / Volume Laterality Blood Venous Draw / 03/02/2022 4:23 AM 03/02/20 4:53 Unknown EDT AM EDT Resulting Agency Comment Spec In Lab Nancy Chahal MD CHEMISTRY ORDERABLES Performing Organization Address City/State/[place] [address] (ABNORMAL) Basic Metabolic Panel (non-fasting) (03/02/2022 4:23 AM EDT) P athologist Signature Glucose Lvl 99 65 - 199 [facility] mg/dL [facility] Comment: Diabetes: >=200 mg/dL plus symp toms BUN 32 (H) 10 - 20 mg/dL [facility] Creatinine 1.33 0.80 - 1.50 mg/dL [facility] Sodium 138 135 - 145 mmol/L [facility] Potassium 4.1 3.5 - 5.0 mmol/L [facility] Comment: Please note: ??Patients with WBC >100,00 0 may have falsely elevated Potassium levels. ??For accurate Potassium quantif ication in these patients send serum separator tube (gold top) for subsequent determinations. ??Contact the Clinical Chemistry Laboratory if there are any qu estions. Chloride 100 98 - 107 mmol/L [facility] CO2 25 22 - 31 mmol/L [facility] Anion Gap 13 5 - 15 mmol/L [facility] Calcium 9.0 8.5 - 10.5 mg/dL [facility] Estimated GFR 74 >=60 mL/min/1.73 m?? [facility] Comment: This patient's estimated GFR [...] Organization Address City/State/[place] [address] (ABNORMAL) Differential, Automated (03/01/2022 2:00 AM EDT) [facility] Method Time Signature Neutrophils % 65.1 % [facility] Neutr Abs (ANC) 6.08 1.70 - [facility] 6.10 [facility] x10(3)/[facility] LABORATORY Lymphocytes % 15.0 % [facility] Lymphocytes Abs 1.4 0.9 - 3.2 [facility] x10(3)/[facility] LABORATORY Monocytes % 12.0 % [facility] Monocyte Abs 1.1 (H) 0.3 - 0.9 [facility] x10(3)/[facility] LABORATORY Eosinophils % 5.4 % [facility] Eosinophils Abs 0.5 (H) 0.0 - 0.4 [facility] x10(3)/[facility] LABORATORY Basophils % 0.6 % [facility] Basophils Abs 0.1 0.0 - 0.1 [facility] x10(3)/[facility] LABORATORY Immature Gran % 1.90 % [facility] Comment: Immature granulocytes(IG's)percentage an d absolute count will include metamyelocytes, myelocytes, and promyelo cytes. Blood smears from CBCs yielding IG's will be scanned manually for concor dance. If this scan disagrees with the automated IG or if promyelocytes are not ed, a manual differential will be performed. Gemini Gran Abs 0.18 (H) 0.00 - 0.04 x10(3)/[facility] LABORATORY Specimen Anatomical Collection Method Collection Time Receive d Time (Source) Location / / Volume Laterality Blood 03/01/2022 2:00 AM 2:03 EDT AM EDT Resulting Agency Comment Spec In Lab Veto Hidalgo MD HEMATOLOGY ORDERABLES Performing Organization Address City/State/[place] [address] (ABNORMAL) Hemogram (03/01/2022 2:00 AM EDT) Analysis Performed At Patho logist Time Signature WBC 9.3 4.0 - 9.5 [facility] x10(3)/[facility] LABORATORY RBC 2.92 (L) 4.58 - [facility]AS[facility] 5.54 [facility] x10(6)/[facility] LABORATORY Hemoglobin 8.5 (L) 13.7 - [facility] 16.5 g/dL [facility] Hematocrit 25.5 (L) 40.5 - [facility] 48.5 % [facility] MCV 87.3 82.9 - [facility] 93.1 [facility] LABORATORY MCH 29.1 27.5 - [facility] 32.1 pg [facility] MCHC 33.3 32.0 - [facility] 35.7 g/dL [facility] Platelets 288 145 - 357 [facility] x10(3)/[facility] LABORATORY RDWSD 52.2 (H) 36.0 - [facility] 45.0 [facility] LABORATORY RDWCV 16.4 (H) 11.4 - [facility] 13.8 % [facility] MPV 8.0 7.6 - 12.9 [facility] LABORATORY nRBC % Auto 0.0 % [facility] nRBC Abs Auto 0.000 0.000 - [facility] x10(3)/[facility] LABORATORY Specimen Anatomical Collection Method Collection Time Receive d Time (Source) Location / / Volume Laterality Blood 03/01/2022 2:00 AM 2 2:03 EDT AM EDT Resulting Agency Comment Spec In Lab Veto Hidalgo MD HEMATOLOGY ORDERABLES Performing Organization Address City/State/[place] [address] Magnesium (03/01/2022 2:00 AM EDT) P athologist Signature Magnesium 0.77 0.69 - 1.07 [facility] mmol/L [facility] Specimen Anatomical Collection Method Collection Time Receive d Time (Source) Location / / Volume Laterality Blood 03/01/2022 2:00 AM 2 2:03 EDT AM EDT Resulting Agency Comment Spec In Lab Jayme Armstrong MD CHEMISTRY ORDERABLES Performing Organization Address City/State/ZIP Code Phon e Number [address] (ABNORMAL) Phosphorus (03/01/2022 2:00 AM EDT) P athologist Signature Phosphorus 4.8 (H) 2.5 - 4.5 [facility] Specimen Anatomical Collection Method Collection Time Receive d Time (Source) Location / / Volume Laterality Blood 03/01/2022 2:00 AM 2 2:03 EDT AM EDT Resulting Agency Comment Spec In Lab Jayme Armstrong MD CHEMISTRY ORDERABLES Performing Organization Address City/[facility]/[place] [address] (ABNORMAL) Basic Metabolic Panel (non-fasting) (03/01/2022 2:00 AM EDT) P athologist Signature Glucose Lvl 106 65 - 199 [facility] mg/dL [facility] Comment: Diabetes: >=200 mg/dL plus symp toms BUN 38 (H) 10 - 20 mg/dL [facility] Creatinine 1.73 (H) 0.80 - 1.50 mg/dL [facility] Sodium 140 135 - 145 mmol/L [facility] Potassium 4.3 3.5 - 5.0 mmol/L [facility] Comment: Please note: ??Patients with WBC >100,00 0 may have falsely elevated Potassium levels. ??For accurate Potassium quantif ication in these patients send serum separator tube (gold top) for subsequent determinations. ??Contact the Clinical Chemistry Laboratory if there are any qu estions. Chloride 102 98 - 107 mmol/L [facility] CO2 24 22 - 31 mmol/L [facility] Anion Gap 14 5 - 15 mmol/L [facility] Calcium 9.2 8.5 - 10.5 mg/dL [facility] Estimated GFR 54 (L) >=60 mL/min/1.73 m?? [facility] Comment: This patient's estimated GFR [...] Organization Address City/State/[place] [address] (ABNORMAL) Ferritin (03/01/2022 2:00 AM EDT) P athologist Signature Ferritin 693 (H) 30 - [address] [facility] [address] ng/mL [facility] Comment: Pediatric reference ranges not verified at [facility], interpret with caution. Reference ranges for females [...] Organization Address City/State/ZIP Code Phon e Number [address] (ABNORMAL) Iron and TIBC (03/01/2022 2:00 AM EDT) Analysis Performed At Patho logist Time Signature Iron 21 (L) 45 - 160 JOSH MANDO mcg/[facility] LABORATORY TIBC 185 (L) 250 - 450 [facility] LABORATORY Iron Saturation 11 (L) 20 - 50 % [facility] Specimen Anatomical Collection Method Collection Time Receive d Time (Source) Location / / Volume Laterality Blood 03/01/2022 2:00 AM 2 2:03 EDT AM EDT Resulting Agency Comment Spec In Lab Allison Kelly MD CHEMISTRY ORDERABLES Performing Organization Address City/State/[place] [address] (ABNORMAL) Basic Metabolic Panel (non-fasting) (02/28/2022 3:43 AM EDT) athologist Signature Glucose Lvl 110 65 - 199 [facility] mg/dL [facility] Comment: Diabetes: >=200 mg/dL plus symp toms BUN 44 (H) 10 - 20 mg/dL [facility] Creatinine 1.92 (H) 0.80 - 1.50 mg/dL [facility] Sodium 138 135 - 145 mmol/L [facility] Potassium 4.3 3.5 - 5.0 mmol/L [facility] Comment: Please note: ??Patients with WBC >100,00 0 may have falsely elevated Potassium levels. ??For accurate Potassium quantif ication in these patients send serum separator tube (gold top) for subsequent determinations. ??Contact the Clinical Chemistry Laboratory if there are any qu estions. Chloride 103 98 - 107 mmol/L [facility] CO2 24 22 - 31 mmol/L [facility] Anion Gap 11 5 - 15 mmol/L [facility] Calcium 9.1 8.5 - 10.5 mg/dL [facility] Estimated GFR 47 (L) >=60 mL/min/1.73 m?? [facility] Comment: This patient's estimated GFR [...] Organization Address City/State/[place] [address] (ABNORMAL) Differential, Automated (02/27/2022 4:36 AM EDT) athologist Signature Neutrophils % 55.6 % [facility] Neutr Abs (ANC) 3.68 1.70 - [facility] 6.10 [facility] x10(3)[facility] LABORATORY Lymphocytes % 21.3 % [facility] Lymphocytes Abs 1.4 0.9 - 3.2 [facility] x10(3)[facility] LABORATORY Monocytes % 11.8 % [facility] Monocyte Abs 0.8 0.3 - 0.9 [facility] x10(3)[facility] LABORATORY Eosinophils % 5.9 % [facility] Eosinophils Abs 0.4 0.0 - 0.4 [facility] x10(3)/[facility] LABORATORY Basophils % 0.9 % [facility] Basophils Abs 0.1 0.0 - 0.1 [facility] x10(3)/[facility] LABORATORY Immature Gran % 4.50 % [facility] Comment: Immature granulocytes(IG's)percentage an d absolute count will include metamyelocytes, myelocytes, and promyelo cytes. Blood smears from CBCs yielding IG's will be scanned manually for concor dannoe. If this scan disagrees with the automated IG or if promyelocytes are not ed, a manual differential will be performed. Gemini Gran Abs 0.30 (H) 0.00 - 0.04 x10(3)/[facility] LABORATORY Specimen Anatomical Collection Method Collection Time Receive d Time (Source) Location / / Volume Laterality Blood 02/27/2022 4:36 AM 4:48 EDT AM EDT Resulting Agency Comment Spec In Lab Veto Hidalgo MD HEMATOLOGY ORDERABLES Performing Organization Address City/State/[place] [address] (ABNORMAL) Hemogram (02/27/2022 4:36 AM EDT) Analysis Performed At Patho logist Time Signature WBC 6.6 4.0 - 9.5 [facility] x10(3)/[facility] LABORATORY RBC 2.74 (L) 4.58 - [facility] 5.54 [facility] x10(6)/[facility] LABORATORY Hemoglobin 8.0 (L) 13.7 - [facility] 16.5 g/dL [facility] Hematocrit 24.7 (L) 40.5 - [facility] 48.5 % [facility] MCV 90.1 82.9 - [facility] 93.1 [facility] LABORATORY MCH 29.2 27.5 - [facility] MANDO 32.1 pg [facility] MCHC 32.4 32.0 - [facility] 35.7 g/dL [facility] Platelets 267 145 - 357 [facility] x10(3)/[facility] LABORATORY RDWSD 56.6 (H) 36.0 - [facility] Dsg.nr 45.0 [facility] LABORATORY RDWCV 17.2 (H) 11.4 - [facility] Dsg.nr 13.8 % [facility] MPV 8.1 7.6 - 12.9 [facility] LABORATORY nRBC % Auto 0.0 % [facility] nRBC Abs Auto 0.000 0.000 - [facility] MANDO 0.000 [facility] x10(3)/[facility] LABORATORY Specimen Anatomical Collection Method Collection Time Receive d Time (Source) Location / / Volume Laterality Blood 02/27/2022 4:36 AM 07/30/202 2 4:48 EDT AM EDT Resulting Agency Comment Spec In Lab Veto Hidalgo MD HEMATOLOGY ORDERABLES Performing Organization Address City/[facility]/ZIP Code Phon e Number [address] Magnesium (02/27/2022 4:36 AM EDT) athologist Signature Magnesium 0.74 0.69 - 1.[address] [facility] [address] mmol/L [facility] Specimen Anatomical Collection Method Collection Time Receive d Time (Source) Location / / Volume Laterality Blood 02/27/2022 4:36 AM 2 4:48 EDT AM EDT Resulting Agency Comment Spec In Lab Jayme Armstrong MD CHEMISTRY ORDERABLES Performing Organization Address City/[facility]/[place] [address] Phosphorus (02/27/2022 4:36 AM EDT) athologist Signature Phosphorus 4.5 2.5 - 4.[address] mg/dL [facility] Specimen Anatomical Collection Method Collection Time Receive d Time (Source) Location / / Volume Laterality Blood 02/27/2022 4:36 AM 2 4:48 EDT AM EDT Resulting Agency Comment Spec In Lab Jayme Armstrong MD CHEMISTRY ORDERABLES Performing Organization Address City/[facility]/[place] [address] (ABNORMAL) Basic Metabolic Panel (non-fasting) (02/27/2022 4:36 AM EDT) athologist Signature Glucose Lvl 108 65 - 199 [facility] mg/dL [facility] Comment: Diabetes: >=200 mg/dL plus symp toms BUN 57 (H) 10 - 20 mg/dL [facility] Creatinine 2.29 (H) 0.80 - 1.50 mg/dL [facility] Sodium 142 135 - 145 mmol/L [facility] Potassium 4.6 3.5 - 5.0 mmol/L [facility] Comment: Please note: ??Patients with WBC >100,00 0 may have falsely elevated Potassium levels. ??For accurate Potassium quantif ication in these patients send serum separator tube (gold top) for subsequent determinations. ??Contact the Clinical Chemistry Laboratory if there are any qu estions. Chloride 105 98 - 107 mmol/L [facility] CO2 24 22 - 31 mmol/L [facility] Anion Gap 13 5 - 15 mmol/L [facility] Calcium 8.7 8.5 - 10.5 mg/dL [facility] Estimated GFR 38 (L) >=60 mL/min/1.73 m?? [facility] Comment: This patient's estimated GFR [...] Organization Address City/State/[place] [address] (ABNORMAL) Basic Metabolic Panel (non-fasting) (02/26/2022 5:30 AM EDT) P athologist Signature Glucose Lvl 101 65 - 199 [facility] mg/dL [facility] Comment: Diabetes: >=200 mg/dL plus symp toms BUN 60 (H) 10 - 20 mg/dL [facility] Creatinine 2.39 (H) 0.80 - 1.50 mg/dL [facility] Sodium 142 135 - 145 mmol/L [facility] Potassium 4.4 3.5 - 5.0 mmol/L [facility] Comment: Please note: ??Patients with WBC >100,00 0 may have falsely elevated Potassium levels. ??For accurate Potassium quantif ication in these patients send serum separator tube (gold top) for subsequent determinations. ??Contact the Clinical Chemistry Laboratory if there are any qu estions. Chloride 105 98 - 107 mmol/L [facility] CO2 23 22 - 31 mmol/L [facility] Anion Gap 14 5 - 15 mmol/L [facility] Calcium 8.7 8.5 - 10.5 mg/dL [facility] Estimated GFR 36 (L) >=60 mL/min/1.73 m?? [facility] Comment: This patient's estimated GFR [...] Organization Address City/State/[place] [address] PTH (02/25/2022 5:30 AM EDT) athologist Signature PTH 65 15 - 65 [facility] pg/mL [facility] Specimen Anatomical Collection Method Collection Time Receive d Time (Source) Location / / Volume Laterality Blood Venous Draw / 02/25/2022 5:30 AM 02/26/20 22 Unknown EDT 12:09 PM EDT Resulting Agency Comment Spec In Lab Tex Robles MD CHEMISTRY ORDERABLES Performing Organization Address City/State/[place] [address] (ABNORMAL) Differential, Automated (02/25/2022 5:30 AM EDT) [facility] Method Time Signature Neutrophils % 67.3 % [facility] Neutr Abs (ANC) 6.38 (H) 1.70 - [facility] [place] 6.10 [facility] x10(3)/[facility] LABORATORY Lymphocytes % 18.9 % [facility] Lymphocytes Abs 1.8 0.9 - 3.2 [facility] x10(3)/[facility] LABORATORY Monocytes % 8.7 % [facility] Monocyte Abs 0.8 0.3 - 0.9 [facility] x10(3)/[facility] LABORATORY Eosinophils % 1.8 % [facility] Eosinophils Abs 0.2 0.0 - 0.4 [facility] x10(3)/[facility] LABORATORY Basophils % 0.5 % [facility] Basophils Abs 0.0 0.0 - 0.1 [facility] x10(3)/[facility] LABORATORY Immature Gran % 2.80 % [facility] Comment: Immature granulocytes(IG's)percentage an d absolute count will include metamyelocytes, myelocytes, and promyelo cytes. Blood smears from CBCs yielding IG's will be scanned manually for concor dance. If this scan disagrees with the automated IG or if promyelocytes are not ed, a manual differential will be performed. Gemini Gran Abs 0.27 (H) 0.00 - 0.04 x10(3)/[facility] LABORATORY Specimen Anatomical Collection Method Collection Time Receive d Time (Source) Location / / Volume Laterality Blood 02/25/2022 5:30 AM 2 6:31 EDT AM EDT Resulting Agency Comment Spec In Lab Nancy Chahal MD HEMATOLOGY ORDERABLES Performing Organization Address City/State/ZIP Code Phon e Number [place] [phone] [facility] LABORATORY Drive (ABNORMAL) Hemogram (02/25/2022 5:30 AM EDT) Analysis Performed At Patho logist Time Signature WBC 9.5 4.0 - 9.5 [facility] MAND[facility] x10(3)/[facility] LABORATORY RBC 2.63 (L) 4.58 - [facility] MANDO 5.54 [facility] x10(6)/[facility] LABORATORY Hemoglobin 7.5 (L) 13.7 - [facility] MANDO 16.5 g/dL [facility] Hematocrit 23.5 (L) 40.5 - [facility] MANDO 48.5 % [facility] MCV 89.4 82.9 - [facility] 93.1 [facility] LABORATORY MCH 28.5 27.5 - [facility] MANDO 32.1 pg [facility] MCHC 31.9 (L) 32.0 - [facility] MANDO 35.7 g/dL [facility] Platelets 299 145 - 357 [facility] x[facility](3[facility] LABORATORY RDWSD 55.2 (H) 36.0 - [facility] MANDO 45.0 [facility] LABORATORY RDWCV 17.1 (H) 11.4 - [facility] MANDO 13.8 % [facility] MPV 8.3 7.6 - 12.9 [facility] MANDO [facility] LABORATORY nRBC % Auto 0.0 % [facility] nRBC Abs Auto 0.000 0.000 - [facility] MANDO 0.000 [facility] x10(3)/[facility] LABORATORY Specimen Anatomical Collection Method Collection Time Receive d Time (Source) Location / / Volume Laterality Blood 02/25/2022 5:30 AM 2 6:31 EDT AM EDT Resulting Agency Comment Spec In Lab Nancy Chahal MD HEMATOLOGY ORDERABLES Performing Organization Address City/State/ZIP Code Phon e Number [place] [phone]OS[address] LAB[address] Magnesium (02/25/2022 5:30 AM EDT) athologist Signature Magnesium 0.81 0.69 - 1.07 [facility] mmol/L [facility] Specimen Anatomical Collection Method Collection Time Receive d Time (Source) Location / / Volume Laterality Blood 02/25/2022 5:30 AM 2 6:31 EDT AM EDT Resulting Agency Comment Spec In Lab Jayme Armstrong MD CHEMISTRY ORDERABLES Performing Organization Address City/[facility]/[place] [address] (ABNORMAL) Phosphorus (02/25/2022 5:30 AM EDT) athologist Signature Phosphorus 4.9 (H) 2.5 - 4.5 [facility] Specimen Anatomical Collection Method Collection Time Receive d Time (Source) Location / / Volume Laterality Blood 02/25/2022 5:30 AM 2 6:31 EDT AM EDT Resulting Agency Comment Spec In Lab Jayme Armstrong MD CHEMISTRY ORDERABLES Performing Organization Address City/[facility] [place] [address] (ABNORMAL) Basic Metabolic Panel (non-fasting) (02/25/2022 5:30 AM EDT) athologist Signature Glucose Lvl 104 65 - 199 [facility] [place] mg/dL [facility] Comment: Diabetes: >=200 mg/dL plus symp toms BUN 65 (H) 10 - 20 mg/dL [facility] Creatinine 2.94 (H) 0.80 - 1.50 mg/dL [facility] Sodium 139 135 - 145 mmol/L [facility] Potassium 4.2 3.5 - 5.0 mmol/L [facility] Comment: Please note: ??Patients with WBC >100,00 0 may have falsely elevated Potassium levels. ??For accurate Potassium quantif ication in these patients send serum separator tube (gold top) for subsequent determinations. ??Contact the Clinical Chemistry Laboratory if there are any qu estions. Chloride 102 98 - 107 mmol/L [facility] CO2 23 22 - 31 mmol/L [facility] Anion Gap 14 5 - 15 mmol/L [facility] Calcium 8.4 (L) 8.5 - 10.5 mg/dL [facility] Estimated GFR 28 (L) >=60 mL/min/1.73 m?? [facility] Comment: This patient's estimated GFR [...] Organization Address City/State/ZIP Code Phon e Number [place] [phone] (ABNORMAL) Basic Metabolic Panel (non-fasting) (02/24/2022 5:45 AM EDT) P athologist Signature Glucose Lvl 102 65 - 199 [facility] [place] mg/dL [facility] Comment: Diabetes: >=200 mg/dL plus symp toms BUN 61 (H) 10 - 20 mg/dL [facility] Creatinine 2.96 (H) 0.80 - 1.50 mg/dL [facility] Comment: result rechecked-sf Sodium 137 135 - 145 mmol/L [facility] Potassium 4.5 3.5 - 5.0 mmol/L [facility] Comment: Please note: ??Patients with WBC >100,00 0 may have falsely elevated Potassium levels. ??For accurate Potassium quantif ication in these patients send serum separator tube (gold top) for subsequent determinations. ??Contact the Clinical Chemistry Laboratory if there are any qu estions. Chloride 102 98 - 107 mmol/L [facility] CO2 22 22 - 31 mmol/L [facility] Anion Gap 13 5 - 15 mmol/L [facility] Calcium 8.3 (L) 8.5 - 10.5 mg/dL [facility] Estimated GFR 28 (L) >=60 mL/min/1.73 m?? [facility] Comment: This patient's estimated GFR [...] Organization Address City/State/[place] [address] SCAN DOC: LAB (02/24/2022 12:00 AM EDT) Narrative This result has an attachment that is no t available. Unknown MEDIA MGR SCAN EXT ORDR/RSLT (ABNORMAL) Differential, Automated (02/23/2022 5:00 AM EDT) athologist Signature Neutrophils % 69.0 % [facility] Neutr Abs (ANC) 5.59 1.70 - [facility] 6.10 [facility] x10(3)/[facility] LABORATORY Lymphocytes % 12.8 % [facility] Lymphocytes Abs 1.0 0.9 - 3.2 [facility] x10(3)/[facility] LABORATORY Monocytes % 10.0 % [facility] Monocyte Abs 0.8 0.3 - 0.9 [facility] x10(3)/[facility] LABORATORY Eosinophils % 2.6 % [facility] Eosinophils Abs 0.2 0.0 - 0.4 [facility] x10(3)/[facility] LABORATORY Basophils % 0.7 % [facility] Basophils Abs 0.1 0.0 - 0.1 [facility] x10(3)/[facility] LABORATORY Immature Gran % 4.90 % [facility] Comment: Immature granulocytes(IG's)percentage an d absolute count will include metamyelocytes, myelocytes, and promyelo cytes. Blood smears from CBCs yielding IG's will be scanned manually for concor dance. If this scan disagrees with the automated IG or if promyelocytes are not ed, a manual differential will be performed. Gemini Gran Abs 0.40 (H) 0.00 - 0.04 x10(3)/[facility] LABORATORY Specimen Anatomical Collection Method Collection Time Receive d Time (Source) Location / / Volume Laterality Blood 02/23/2022 5:00 AM 5:31 EDT AM EDT Resulting Agency Comment Spec In Lab Kaitlyn Rock MD HEMATOLOGY ORDERABLES Performing Organization Address City/State/[place] [address] (ABNORMAL) Hemogram (02/23/2022 5:00 AM EDT) Analysis Performed At Patho logist Time Signature WBC 8.1 4.0 - 9.5 [facility] x10(3)/[facility] LABORATORY RBC 2.50 (L) 4.58 - [facility] 5.54 [facility] x10(6)/[facility] LABORATORY Hemoglobin 7.0 (L) 13.7 - [facility] M[facility] 16.5 g/dL [facility] Hematocrit 22.4 (L) 40.5 - [facility] [place] 48.5 % [facility] MCV 89.6 82.9 - [facility] 93.1 [facility] LABORATORY MCH 28.0 27.5 - [facility] 32.1 pg [facility] MCHC 31.3 (L) 32.0 - [facility] 35.7 g/dL [facility] Platelets 300 145 - 357 [facility] x10(3)/[facility] LABORATORY RDWSD 57.0 (H) 36.0 - [facility] M[facility]O 45.0 [facility] LABORATORY RDWCV 17.5 (H) 11.4 - [facility] 13.8 % [facility] MPV 8.4 7.6 - 12.9 [facility] MANDO [facility] LABORATORY nRBC % Auto 0.0 % [facility] nRBC Abs Auto 0.000 0.000 - [facility] x10(3)/[facility] LABORATORY Specimen Anatomical Collection Method Collection Time Receive d Time (Source) Location / / Volume Laterality Blood 02/23/2022 5:00 AM 5:31 EDT AM EDT Resulting Agency Comment Spec In Lab Kaitlyn Rock MD HEMATOLOGY ORDERABLES Performing Organization Address City/State/[place] [address] (ABNORMAL) Basic Metabolic Panel (non-fasting) (02/23/2022 5:00 AM EDT) P athologist Signature Glucose Lvl 113 65 - 199 [facility] mg/dL [facility] Comment: Diabetes: >=200 mg/dL plus symp toms BUN 59 (H) 10 - 20 mg/dL [facility] Creatinine 3.90 (H) 0.80 - 1.50 mg/dL [facility] Sodium 137 135 - 145 mmol/L [facility] Potassium 4.6 3.5 - 5.0 mmol/L [facility] Comment: Please note: ??Patients with WBC >100,00 0 may have falsely elevated Potassium levels. ??For accurate Potassium quantif ication in these patients send serum separator tube (gold top) for subsequent determinations. ??Contact the Clinical Chemistry Laboratory if there are any qu estions. Chloride 102 98 - 107 mmol/L [facility] CO2 24 22 - 31 mmol/L [facility] Anion Gap 11 5 - 15 mmol/L [facility] Calcium 8.3 (L) 8.5 - 10.5 mg/dL [facility] Estimated GFR 20 (L) >=60 mL/min/1.73 m?? [facility] Comment: This patient's estimated GFR [...] Novak MD CHEMISTRY ORDERABLES Performing Organization Address City/State/[facility] [place] [address] (ABNORMAL) Phosphorus (02/23/2022 5:00 AM EDT) P athologist Signature Phosphorus 6.2 (H) 2.5 - 4.5 [facility] mg/dL [facility] Specimen Anatomical Collection Method Collection Time Receive d Time (Source) Location / / Volume Laterality Blood 02/23/2022 5:00 AM 2 5:31 EDT AM EDT Resulting Agency Comment Spec In Lab Gela Novak MD CHEMISTRY ORDERABLES Performing Organization Address City/State/[place] [address] [facility] LAB[address] Magnesium (02/23/2022 5:00 AM EDT) P athologist Signature Magnesium 0.93 0.69 - 1.07 [facility] mmol/L [facility] Specimen Anatomical Collection Method Collection Time Receive d Time (Source) Location / / Volume Laterality Blood 02/23/2022 5:00 AM 5:31 EDT AM EDT Resulting Agency Comment Spec In Lab Gela Novak MD CHEMISTRY ORDERABLES Performing Organization Address City/State/ZIP Code Phon e Number [address] (ABNORMAL) Differential, Automated (02/22/2022 1:08 AM EDT) Patholo gist Method Time Signature Neutrophils % 64.0 % [facility] LABORATORY Neutr Abs (ANC) 5.73 1.70 - [facility] 6.10 [facility] x10(3)/[facility] LABORATORY Lymphocytes % 15.0 % [facility] LABORATORY Lymphocytes Abs 1.3 0.9 - 3.2 [facility] x10(3)/[facility] LABORATORY Monocytes % 10.9 % [facility] LABORATORY Monocyte Abs 1.0 (H) 0.3 - 0.9 [facility] x10(3)/[facility] LABORATORY Eosinophils % 3.0 % [facility] LABORATORY Eosinophils Abs 0.3 0.0 - 0.4 [facility] x10(3)/[facility] LABORATORY Basophils % 0.6 % [facility] LABORATORY Basophils Abs 0.0 0.0 - 0.1 [facility] x10(3)/[facility] LABORATORY Immature Gran % 6.50 % [facility] LABORATORY Comment: Immature granulocytes(IG's)percentage an d absolute count will include metamyelocytes, myelocytes, and promyelo cytes. Blood smears from CBCs yielding IG's will be scanned manually for concor dance. If this scan disagrees with the automated IG or if promyelocytes are not ed, a manual differential will be performed. Gemini Gran Abs 0.58 (H) 0.00 - 0.04 x10(3)/[facility] LABORATORY Specimen Anatomical Collection Method Collection Time Receive d Time (Source) Location / / Volume Laterality Blood 02/22/2022 1:08 AM 2 1:25 EDT AM EDT Resulting Agency Comment Spec In Lab Kaitlyn Rock MD HEMATOLOGY ORDERABLES Performing Organization Address City/State/[place] [address] (ABNORMAL) Hemogram (02/22/2022 1:08 AM EDT) Analysis Performed At Patho logist Time Signature WBC 8.9 4.0 - 9.5 [facility] x10(3)/[facility] LABORATORY RBC 2.56 (L) 4.58 - [facility] 5.54 [facility] x10(6)/[facility] LABORATORY Hemoglobin 7.3 (L) 13.7 [facility] 16.5 g/dL [facility] LABORATORY Hematocrit 22.7 (L) 40.5 - [facility] 48.5 % [facility] LABORATORY MCV 88.7 82.9 - [facility] 93.1 [facility] LABORATORY MCH 28.5 27.5 - [facility] 32.1 pg [facility] LABORATORY MCHC 32.2 32.0 - [facility] 35.7 g/dL [facility] LABORATORY Platelets 317 145 - 357 [facility] x10(3)/[facility] LABORATORY RDWSD 58.2 (H) 36.0 - [facility] MANDO 45.0 [facility] LABORATORY RDWCV 17.9 (H) 11.4 - [facility] MANDO 13.8 % [facility] LABORATORY MPV 8.5 7.6 - 12.9 [facility] nRBC % Auto 0.0 % [facility] LABORATORY nRBC Abs Auto 0.000 0.000 - [facility] MANDO 0.000 [facility] x10(3)/[facility] LABORATORY Specimen Anatomical Collection Method Collection Time Receive d Time (Source) Location / / Volume Laterality Blood 02/22/2022 1:08 AM 2 1:25 EDT AM EDT Resulting Agency Comment Spec In Lab Kaitlyn Rock MD HEMATOLOGY ORDERABLES Performing Organization Address City/State/[place] [address] (ABNORMAL) Basic Metabolic Panel (non-fasting) (02/22/2022 1:08 AM EDT) P athologist Signature Glucose Lvl 95 65 - 199 [facility] mg/dL [facility] LABORATORY Comment: Diabetes: >=200 mg/dL plus symp toms BUN 55 (H) 10 - 20 mg/dL [facility] LABORATORY Creatinine 3.91 (H) 0.80 - 1.50 mg/dL [facility] LABORATORY Sodium 137 135 - 145 mmol/L [facility] LABORATORY Potassium 5.1 (H) 3.5 - 5.0 mmol/L [facility] LABORATORY Comment: Please note: ??Patients with WBC >100,00 0 may have falsely elevated Potassium levels. ??For accurate Potassium quantif ication in these patients send serum separator tube (gold top) for subsequent determinations. ??Contact the Clinical Chemistry Laboratory if there are any qu estions. Chloride 101 98 - 107 mmol/L [facility] LABORATORY CO2 23 22 - 31 mmol/L [facility] LABORATORY Anion Gap 13 5 - 15 mmol/L [facility] LABORATORY Calcium 8.2 (L) 8.5 - 10.5 mg/dL [facility] LABORATORY Estimated GFR 20 (L) >=60 mL/min/1.73 m?? [facility] LABORATORY Comment: This patient's estimated GFR [...] Novak MD CHEMISTRY ORDERABLES Performing Organization Address City/[facility]/ZIP Code Phon e Number [address] (ABNORMAL) Phosphorus (02/22/2022 1:08 AM EDT) P athologist Signature Phosphorus 5.9 (H) 2.5 - 4.5 [facility] mg/dL [facility] LABORATORY Specimen Anatomical Collection Method Collection Time Receive d Time (Source) Location / / Volume Laterality Blood 02/22/2022 1:08 AM 2 1:25 EDT AM EDT Resulting Agency Comment Spec In Lab Gela Novak MD CHEMISTRY ORDERABLES Performing Organization Address City/[facility]/[place] [address] Magnesium (02/22/2022 1:08 AM EDT) P athologist Signature Magnesium 0.90 0.69 - [facility].07 [facility]L [facility] LABORATORY Specimen Anatomical Collection Method Collection Time Receive d Time (Source) Location / / Volume Laterality Blood 02/22/2022 1:08 AM 2 1:25 EDT AM EDT Resulting Agency Comment Spec In Lab Gela Novak MD CHEMISTRY ORDERABLES Performing Organization Address City/[facility]/[place] [address] Transfuse RBC (02/21/2022 4:53 PM EDT) Gela Novak MD NURSING TREATMENT ORDERABLES - BLOOD ADMIN Transfuse RBC (02/21/2022 4:53 PM EDT) Gela Novak MD NURSING TREATMENT ORDERABLES - BLOOD ADMIN Type and Screen Validity (02/21/2022 12:40 PM EDT) Patholo gist Method Time Signature T&S only valid [facility] Comment: This Type and Screen result is only valid at the [facility] Specimen Anatomical Collection Method Collection Time Receive d Time (Source) Location / / Volume Laterality Blood 02/21/2022 12:40 02/21/2022 1:12 PM EDT PM EDT Resulting Agency Comment Spec In Lab Melissa Gonzales MD BLOOD BANK ORDERABLES Performing Organization Address City/State/ZIP Code Phon e Number [address] ABORH Recheck Status (02/21/2022 12:40 PM EDT) [facility] Method Time Signature ABORH Type Completed [facility] LABORATORY Specimen Anatomical Collection Method Collection Time Receive d Time (Source) Location / / Volume Laterality Blood 02/21/2022 12:40 02/21/2022 1:12 PM EDT PM EDT Resulting Agency Comment Spec In Lab Melissa Gonzales MD BLOOD BANK ORDERABLES Performing Organization Address City/State/[place] [address] Antibody screen (02/21/2022 12:40 PM EDT) [facility] Method [place] Signature Ab Screen Negative [facility] LABORATORY Expires at 02/24/2022 [facility] 2359 on: [facility] LABORATORY Specimen Anatomical Collection Method Collection Time Receive d Time (Source) Location / / Volume Laterality Blood 02/21/2022 12:40 02/21/2022 1:12 PM EDT PM EDT Resulting Agency Comment Spec In Lab Melissa Gonzales MD BLOOD BANK ORDERABLES Performing Organization Address City/[facility]/[place] [address] ABO/Rh Typing (02/21/2022 12:40 PM EDT) P athologist Signature ABORh Type A Pos [facility] LABORATORY Specimen Anatomical Collection Method Collection Time Receive d Time (Source) Location / / Volume Laterality Blood 02/21/2022 12:40 02/21/2022 1:12 PM EDT PM EDT Resulting Agency Comment Spec In Lab Melissa Gonzales MD BLOOD BANK ORDERABLES Performing Organization Address City/[facility]/ZIP Code Phon e Number [address] Prepare RBC (02/21/2022 12:20 PM EDT) athologist Signature Dispensed? Yes [facility] LABORATORY Specimen Anatomical Collection Method Collection Time Receive d Time (Source) Location / / Volume Laterality Blood 02/21/2022 12:20 02/21/2022 PM EDT 12:19 PM EDT Gela Novak MD BLOOD BANK ORDERABLES Performing Organization Address City/[facility]/[place] [address] (ABNORMAL) Albumin Level (02/21/2022 3:38 AM EDT) athologist Signature Albumin 2.3 (L) 3.2 - 5.2 [facility] g/dL [facility] LABORATORY Specimen Anatomical Collection Method Collection Time Receive d Time (Source) Location / / Volume Laterality Blood Venous Draw / 02/21/2022 3:38 AM 02/22/20 22 3:47 Unknown EDT AM EDT Resulting Agency Comment Spec In Lab Bambi Pressley MD CHEMISTRY ORDERABLES Performing Organization Address City/[facility]/[place] [address] (ABNORMAL) Differential, Automated (02/21/2022 3:38 AM EDT) P athologist Signature Neutrophils % 67.8 % [facility] LABORATORY Neutr Abs (ANC) 6.03 1.70 - [facility] 6.10 [facility] x10(3)/[facility] LABORATORY Lymphocytes % 13.5 % [facility] LABORATORY Lymphocytes Abs 1.2 0.9 - 3.2 [facility] x10(3)/[facility] LABORATORY Monocytes % 9.4 % [facility] LABORATORY Monocyte Abs 0.8 0.3 - 0.9 [facility] x10(3)/[facility] LABORATORY Eosinophils % 3.1 % [facility] LABORATORY Eosinophils Abs 0.3 0.0 - 0.4 [facility] x10(3)/[facility] LABORATORY Basophils % 0.6 % [facility] LABORATORY Basophils Abs 0.0 0.0 - 0.1 [facility] x10(3)/[facility] LABORATORY Immature Gran % 5.60 % [facility] LABORATORY Comment: Immature granulocytes(IG's)percentage an d absolute count will include metamyelocytes, myelocytes, and promyelo cytes. Blood smears from CBCs yielding IG's will be scanned manually for concor dance. If this scan disagrees with the automated IG or if promyelocytes are not ed, a manual differential will be performed. Gemini Gran Abs 0.50 (H) 0.00 - 0.04 x10(3)/[facility] LABORATORY Specimen Anatomical Collection Method Collection Time Receive d Time (Source) Location / / Volume Laterality Blood 02/21/2022 3:38 AM 2 3:46 EDT AM EDT Resulting Agency Comment Spec In Lab Kaitlyn Rock MD HEMATOLOGY ORDERABLES Performing Organization Address City/State/[place] [address] (ABNORMAL) Hemogram (02/21/2022 3:38 AM EDT) Analysis Performed At Patho logist Time Signature WBC 8.9 4.0 - 9.5 [facility] x10(3)/[facility] LABORATORY RBC 2.37 (L) 4.58 - [facility] 5.54 [facility] x10(6)/[facility] LABORATORY Hemoglobin 6.9 (L) 13.7 - [facility] 16.5 g/dL [facility] LABORATORY Hematocrit 21.4 (L) 40.5 - [facility] 48.5 % [facility] LABORATORY MCV 90.3 82.9 - [facility] 93.1 fL [facility] LABORATORY MCH 29.1 27.5 - [facility] 32[facility]1 pg [facility] LAB[facility]ATORY MCHC 32.2 32.0 - [facility] 35.7 g/dL [facility] LABORATORY Platelets 273 145 - 357 [facility] x10(3)/[facility] LABORATORY RDWSD 50.5 (H) 36.0 - [facility] 45.0 [facility] LABORATORY RDWCV 15.7 (H) 11.4 - [facility] MANDO 13.8 % [facility] LABORATORY MPV 8.5 7.6 - 12.9 [facility] LABORATORY nRBC % Auto 0.0 % [facility] LABORATORY nRBC Abs Auto 0.000 0.000 - [facility]000 [facility] x10(3)/[facility] LABORATORY Specimen Anatomical Collection Method Collection Time Receive d Time (Source) Location / / Volume Laterality Blood 02/21/2022 3:38 AM 3:46 EDT AM EDT Resulting Agency Comment Spec In Lab Kaitlyn Rock MD HEMATOLOGY ORDERABLES Performing Organization Address City/State/[place] [address] (ABNORMAL) Basic Metabolic Panel (non-fasting) (02/21/2022 3:38 AM EDT) P athologist Signature Glucose Lvl 96 65 - 199 [facility] mg/dL [facility] LABORATORY Comment: Diabetes: >=200 mg/dL plus symp toms BUN 46 (H) 10 - 20 mg/dL [facility] LABORATORY Creatinine 3.68 (H) 0.80 - 1.50 mg/dL [facility] LABORATORY Sodium 136 135 - 145 mmol/L [facility] LABORATORY Potassium 4.9 3.5 - 5.0 mmol/L [facility] LABORATORY Comment: Please note: ??Patients with WBC >100,00 0 may have falsely elevated Potassium levels. ??For accurate Potassium quantif ication in these patients send serum separator tube (gold top) for subsequent determinations. ??Contact the Clinical Chemistry Laboratory if there are any qu estions. Chloride 101 98 - 107 mmol/L [facility] LABORATORY CO2 26 22 - 31 mmol/L [facility] LABORATORY Anion Gap 9 5 - 15 mmol/L [facility] LABORATORY Calcium 8.1 (L) 8.5 - 10.5 mg/dL [facility] LABORATORY Estimated GFR 22 (L) >=60 mL/min/1.73 m?? [facility] LABORATORY Comment: This patient's estimated GFR [...] Organization Address City/State/ZIP Code Phon e Number [address] (ABNORMAL) Phosphorus (02/21/2022 3:38 AM EDT) P athologist Signature Phosphorus 5.1 (H) 2.5 - 4.5 [facility] mg/dL [facility] LABORATORY Specimen Anatomical Collection Method Collection Time Receive d Time (Source) Location / / Volume Laterality Blood 02/21/2022 3:38 AM 2 3:46 EDT AM EDT Resulting Agency Comment Spec In Lab Gela Novak MD CHEMISTRY ORDERABLES Performing Organization Address City/State/ZIP Code Phon e Number [address] Magnesium (02/21/2022 3:38 AM EDT) P athologist Signature Magnesium 0.92 0.69 - 1.07 [facility] mmol/L [facility] LABORATORY Specimen Anatomical Collection Method Collection Time Receive d Time (Source) Location / / Volume Laterality Blood 02/21/2022 3:38 AM 2 3:46 EDT AM EDT Resulting Agency Comment Spec In Lab Gela Novak MD CHEMISTRY ORDERABLES Performing Organization Address City/State/[place] [address] (ABNORMAL) Differential, Automated (02/20/2022 4:45 AM EDT) [facility] Method Time Signature Neutrophils % 67.8 % [facility] LABORATORY Neutr Abs (ANC) 6.58 (H) 1.70 - [facility] 6.10 [facility] x10(3)/[facility] LABORATORY Lymphocytes % 12.7 % [facility] LABORATORY Lymphocytes Abs 1.2 0.9 - 3.2 [facility] x10(3)/[facility] LABORATORY Monocytes % 9.2 % [facility] LABORATORY Monocyte Abs 0.9 0.3 - 0.9 [facility] x10(3)/[facility] LABORATORY Eosinophils % 3.0 % [facility] LABORATORY Eosinophils Abs 0.3 0.0 - 0.4 [facility] x10(3)/[facility] LABORATORY Basophils % 0.4 % [facility] LABORATORY Basophils Abs 0.0 0.0 - 0.1 [facility] x10(3)/[facility] LABORATORY Immature Gran % 6.90 % [facility] LABORATORY Comment: Immature granulocytes(IG's)percentage an d absolute count will include metamyelocytes, myelocytes, and promyelo cytes. Blood smears from CBCs yielding IG's will be scanned manually for concor dance. If this scan disagrees with the automated IG or if promyelocytes are not ed, a manual differential will be performed. Gemini Gran Abs 0.67 (H) 0.00 - 0.04 x10(3)/[facility] LABORATORY Specimen Anatomical Collection Method Collection Time Receive d Time (Source) Location / / Volume Laterality Blood 02/20/2022 4:45 AM 2 5:02 EDT AM EDT Resulting Agency Comment Spec In Lab Kaitlyn Rock MD HEMATOLOGY ORDERABLES Performing Organization Address City/State/[place] [address] (ABNORMAL) Hemogram (02/20/2022 4:45 AM EDT) Analysis Performed At Patho logist Time Signature WBC 9.7 (H) 4.0 - 9.5 [facility] x10(3)/[facility] LABORATORY RBC 2.48 (L) 4.58 - [facility] 5.54 [facility] x10(6)/[facility] LABORATORY Hemoglobin 7.2 (L) 13.7 - [facility] 16.5 g/dL [facility] LABORATORY Hematocrit 22.2 (L) 40.5 - [facility] 48.5 % [facility] LABORATORY MCV 89.5 82.9 - [facility] 93.1 [facility] LABORATORY MCH 29.0 27.5 - [facility] 32.1 pg [facility] LABORATORY MCHC 32.4 32.0 - [facility] 35.7 g/dL [facility] LABORATORY Platelets 312 145 - 357 [facility] x10(3)/[facility] LABORATORY RDWSD 49.6 (H) 36.0 - [facility] 45.0 [facility] LABORATORY RDWCV 15.4 (H) 11.4 - [facility] 13.8 % [facility] LABORATORY MPV 8.4 7.6 - 12.9 [facility] LABORATORY nRBC % Auto 0.0 % [facility] LABORATORY nRBC Abs Auto 0.000 0.000 - [facility] MANDO 0.000 [facility] x10(3)/[facility] LABORATORY Specimen Anatomical Collection Method Collection Time Receive d Time (Source) Location / / Volume Laterality Blood 02/20/2022 4:45 AM 5:02 EDT AM EDT Resulting Agency Comment Spec In Lab Kaitlyn Rock MD HEMATOLOGY ORDERABLES Performing Organization Address City/State/[place] [address] (ABNORMAL) Basic Metabolic Panel (non-fasting) (02/20/2022 4:45 AM EDT) P athologist Signature Glucose Lvl 98 65 - 199 [facility] mg/dL [facility] LABORATORY Comment: Diabetes: >=200 mg/dL plus symp toms BUN 35 (H) 10 - 20 mg/dL [facility] LABORATORY Creatinine 3.27 (H) 0.80 - 1.50 mg/dL [facility] LABORATORY Comment: result rechecked-trb Sodium 136 135 - 145 mmol/L [facility] LABORATORY Potassium 4.7 3.5 - 5.0 mmol/L [facility] LABORATORY Comment: Please note: ??Patients with WBC >100,00 0 may have falsely elevated Potassium levels. ??For accurate Potassium quantif ication in these patients send serum separator tube (gold top) for subsequent determinations. ??Contact the Clinical Chemistry Laboratory if there are any qu estions. Chloride 99 98 - 107 mmol/L [facility] LABORATORY CO2 27 22 - 31 mmol/L [facility] LABORATORY Anion Gap 10 5 - 15 mmol/L [facility] LABORATORY Calcium 7.8 (L) 8.5 - 10.5 mg/dL [facility] LABORATORY Estimated GFR 25 (L) >=60 mL/min/1.73 m?? [facility] LABORATORY Comment: This patient's estimated GFR [...] Organization Address City/State/[place] [address] (ABNORMAL) Phosphorus (02/20/2022 4:45 AM EDT) P athologist Signature Phosphorus 4.6 (H) 2.5 - 4.5 [facility] mg/dL [facility] LABORATORY Specimen Anatomical Collection Method Collection Time Receive d Time (Source) Location / / Volume Laterality Blood 02/20/2022 4:45 AM 2 5:02 EDT AM EDT Resulting Agency Comment Spec In Lab Gela Novak MD CHEMISTRY ORDERABLES Performing Organization Address City/State/ZIP Code Phon e Number [address] Magnesium (02/20/2022 4:45 AM EDT) P athologist Signature Magnesium 0.83 0.69 - 1.07 [facility] mmol/L [facility] LABORATORY Specimen Anatomical Collection Method Collection Time Receive d Time (Source) Location / / Volume Laterality Blood 02/20/2022 4:45 AM 2 5:02 EDT AM EDT Resulting Agency Comment Spec In Lab Gela Novak MD CHEMISTRY ORDERABLES Performing Organization Address City/State/[place] [address] Duplex for DVT, Arm, Unilat (02/19/2022 3:45 PM EDT) Component Value Ref Test Analysis Performed At Patholo gist Range Method Time Signature VB Text Department: Vascular Surgery Lab VASCUBASE Report Patient: [id number] (ALIX HOLLAND) CPT: 38198 Referring Physician: GELA NOVAK ?? Phone: Indications: [...] VASCUBASE Anaerobic Culture (02/19/2022 9:45 AM EDT) [facility] [employer] Method Time Signature Anaerobic No anaerobic [facility] Culture organisms [facility] LABORATORY Specimen Anatomical Collection Method Collection Time Receive d Time (Source) Location / / Volume Laterality Deep Wound STRUCTURE OF LEFT 02/19/2022 9:45 AM 01/30 THIGH / Unknown EDT 10:24 AM EDT Comment: Left leg wound culture Resulting Agency Comment Spec In Lab Floridalma Sandoval MD MICROBIOLOGY - GENERAL ORDER JT Performing Organization Address City/[facility]/[place] [address] (ABNORMAL) Abscess/Wound Aspirate Culture (02/19/2022 9:45 AM EDT) Component Value Ref Test Analysis Performed At [facility] [employer] Range Method Time Signature Abscess/Wound Rare Serratia marcescens M JON Aspirate Rare Pseudomonas aeruginosa HI TCOCK Culture (A) [facility] LABORATORY Gram Stain Moderate Neutrophils JOS[facility] No microorganisms seen. [facility] OCK (A) [facility] LABORATORY Organism Serratia [facility] marcescens (A) [facility] LABORATORY Organism Pseudomonas [facility] aeruginosa (A) [facility] LABORATORY Specimen Anatomical Collection Method Collection Time [...] Organization Address City/State/[place] [address] (ABNORMAL) Vitamin D, 25-Hydroxy (02/19/2022 12:27 AM EDT) [facility] gist Method Time Signature 25-OH Vit D 12 (L) 21 - 100 [facility] Total ng/mL [facility] LABORATORY 25-OH Vit D Deficient [facility] LABORATORY Specimen Anatomical Collection Method Collection Time Receive d Time (Source) Location / / Volume Laterality Blood Venous Draw / 02/19/2022 12:27 02/19/2022 Unknown AM EDT 12:44 AM EDT Resulting Agency Comment Spec In Lab Vidhya Peñaloza MD CHEMISTRY ORDERABLES Performing Organization Address City/[facility]/ZIP Code Phon e Number [place] [id number]OS[address] (ABNORMAL) Ferritin (02/19/2022 12:27 AM EDT) P athologist Signature Ferritin 855 (H) 30 - 400 [facility] ng/mL [facility] LABORATORY Comment: Pediatric reference ranges not verified at [facility], interpret with caution. Reference ranges for females greater trina n 50 years of age approach values for men, i.e., 30-400 ng/mL. Specimen Anatomical Collection Method Collection Time Receive d Time (Source) Location / / Volume Laterality Blood Venous Draw / 02/19/2022 12:27 02/19/2022 Unknown AM EDT 12:44 AM EDT Resulting Agency Comment Spec In Lab Bambi Pressley MD CHEMISTRY ORDERABLES Performing Organization Address City/[facility]/[place] [address] (ABNORMAL) Differential, Automated (02/19/2022 12:27 AM EDT) Patholo gist Method Time Signature Neutrophils % 66.5 % [facility] LABORATORY Neutr Abs (ANC) 8.58 (H) 1.70 - [facility] 6.10 [facility] x10(3)/[facility] L LABORATORY Lymphocytes % 11.4 % [facility] LABORATORY Lymphocytes Abs 1.5 0.9 - 3.2 [facility] x10(3)/[facility] LABORATORY Monocytes % 7.6 % [facility] LABORATORY Monocyte Abs 1.0 (H) 0.3 - 0.9 [facility] x10(3)/[facility] LABORATORY Eosinophils % 4.0 % [facility] LABORATORY Eosinophils Abs 0.5 (H) 0.0 - 0.4 [facility] x10(3)/[facility] LABORATORY Basophils % 0.5 % [facility] LABORATORY Basophils Abs 0.1 0.0 - 0.1 [facility] x10(3)/[facility] LABORATORY Immature Gran % 10.00 % [facility] LABORATORY Comment: Immature granulocytes(IG's)percentage an d absolute count will include metamyelocytes, myelocytes, and promyelo cytes. Blood smears from CBCs yielding IG's will be scanned manually for concor dance. If this scan disagrees with the automated IG or if promyelocytes are not ed, a manual differential will be performed. Gemini Gran Abs 1.29 (H) 0.00 - 0.04 x10(3)/[facility] LABORATORY Specimen Anatomical Collection Method Collection Time Receive d Time (Source) Location / / Volume Laterality Blood 02/19/2022 12:27 02/19/2022 AM EDT 12:33 AM EDT Resulting Agency Comment Spec In Lab Collette Dye MD HEMATOLOGY ORDERABLES Performing Organization Address City/State/[place] [address] (ABNORMAL) Hemogram (02/19/2022 12:27 AM EDT) Analysis Performed At Patho logist Time Signature WBC 12.9 (H) 4.0 - 9.5 [facility] x10(3)/[facility] LABORATORY RBC 2.44 (L) 4.58 - [facility] 5.54 [facility] x10(6)/[facility] LABORATORY Hemoglobin 7.1 (L) 13.7 - [facility] g/dL [facility] LABORATORY Hematocrit 21.9 (L) 40.5 - [facility] 48.5 % [facility] LABORATORY MCV 89.8 82.9 - [facility] 93.1 [facility] LABORATORY MCH 29.1 27.5 - [facility] 32.1 pg [facility] LABORATORY MCHC 32.4 32.0 - [facility] 35.7 g/dL [facility] LABORATORY Platelets 320 145 - 357 [facility] x10(3)/[facility] LABORATORY RDWSD 51.8 (H) 36.0 - [facility] RDWCV 15.7 (H) 11.4 - [facility] 13.8 % [facility] LABORATORY MPV 8.7 7.6 - 12.9 [facility] LABORATORY nRBC % Auto 0.0 % [facility] LABORATORY nRBC Abs Auto 0.000 0.000 - [facility] 0.000 [facility] x10(3)/[facility] LABORATORY Specimen Anatomical Collection Method Collection Time Receive d Time (Source) Location / / Volume Laterality Blood 02/19/2022 12:27 02/19/2022 AM EDT 12:33 AM EDT Resulting Agency Comment Spec In Lab Collette Dye MD HEMATOLOGY ORDERABLES Performing Organization Address City/State/[place] [address] (ABNORMAL) Basic Metabolic Panel (non-fasting) (02/19/2022 12:27 AM EDT) athologist Signature Glucose Lvl 100 65 - 199 [facility] mg/dL [facility] LABORATORY Comment: Diabetes: >=200 mg/dL plus symp toms BUN 49 (H) 10 - 20 mg/dL [facility] LABORATORY Creatinine 4.47 (H) 0.80 - 1.50 mg/dL [facility] LABORATORY Sodium 133 (L) 135 - 145 mmol/L [facility] LABORATORY Potassium 4.6 3.5 - 5.0 mmol/L [facility] LABORATORY Comment: Please note: ??Patients with WBC >100,00 0 may have falsely elevated Potassium levels. ??For accurate Potassium quantif ication in these patients send serum separator tube (gold top) for subsequent determinations. ??Contact the Clinical Chemistry Laboratory if there are any qu estions. Chloride 97 (L) 98 - 107 mmol/L [facility] LABORATORY CO2 24 22 - 31 mmol/L [facility] LABORATORY Anion Gap 12 5 - 15 mmol/L [facility] LABORATORY Calcium 7.8 (L) 8.5 - 10.5 mg/dL [facility] LABORATORY Estimated GFR 17 (L) >=60 mL/min/1.73 m?? [facility] LABORATORY Comment: This patient's estimated GFR [...] Novak MD CHEMISTRY ORDERABLES Performing Organization Address City/[facility]/ZIP Code Phon e Number [address] (ABNORMAL) Phosphorus (02/19/2022 12:27 AM EDT) P athologist Signature Phosphorus 5.9 (H) 2.5 - 4.[address] [facility] mg/dL [facility] LABORATORY Specimen Anatomical Collection Method Collection Time Receive d Time (Source) Location / / Volume Laterality Blood 02/19/2022 12:27 02/19/2022 AM EDT 12:33 AM EDT Resulting Agency Comment Spec In Lab Gela Novak MD CHEMISTRY ORDERABLES Performing Organization Address City/State/ZIP Code Phon e Number [address] Magnesium (02/19/2022 12:27 AM EDT) P athologist Signature Magnesium 0.84 0.69 - 1.[address] [address] mmol/L [facility] LABORATORY Specimen Anatomical Collection Method Collection Time Receive d Time (Source) Location / / Volume Laterality Blood 02/19/2022 12:27 02/19/2022 AM EDT 12:33 AM EDT Resulting Agency Comment Spec In Lab Gela Novak MD CHEMISTRY ORDERABLES Performing Organization Address City/State/[place] [address] Hepatitis B Surface Antigen (02/19/2022 12:27 AM EDT) Analysis Performed At [facility] logist Time Signature HepB Surface Negative Negative [facility] LABORATORY Specimen Anatomical Collection Method Collection Time Receive d Time (Source) Location / / Volume Laterality Blood 02/19/2022 12:27 02/19/2022 AM EDT 12:33 AM EDT Resulting Agency Comment Spec In Lab Gela Novak MD CHEMISTRY ORDERABLES Performing Organization Address City/[facility]/[place] [address] Scan, Peripheral Blood (02/18/2022 4:01 AM EDT) [facility] [employer] Method Time Signature Plat Estimate Normal [facility] LABORATORY RBC Morphology Abnormal [facility] LABORATORY Ovalocytes 1-5 /HPF [facility] LABORATORY Stippled RBCs Present >1/HPF [facility] LABORATORY Specimen Anatomical Collection Method Collection Time Receive d Time (Source) Location / / Volume Laterality Blood 02/18/2022 4:01 AM 4:16 EDT AM EDT Resulting Agency Comment Spec In Lab Collette Dye MD HEMATOLOGY ORDERABLES Performing Organization Address City/[facility]/[place] [address] (ABNORMAL) Differential, Automated (02/18/2022 4:01 AM EDT) [facility] [employer] Method Time Signature Neutrophils % 70.4 % [facility] LABORATORY Neutr Abs (ANC) 10.70 (H) 1.70 - [facility] 6.10 [facility] x10(3)/[facility] LABORATORY Lymphocytes % 8.0 % [facility] LABORATORY Lymphocytes Abs 1.2 0.9 - 3.2 [facility] x10(3)/[facility] LABORATORY Monocytes % 7.7 % [facility] LABORATORY Monocyte Abs 1.2 (H) 0.3 - 0.9 [facility] x10(3)/[facility] LABORATORY Eosinophils % 3.2 % [facility] LABORATORY Eosinophils Abs 0.5 (H) 0.0 - 0.4 [facility] x10(3)/[facility] LABORATORY Basophils % 0.4 % [facility] LABORATORY Basophils Abs 0.1 0.0 - 0.1 [facility] x10(3)/[facility] LABORATORY Immature Gran % 10.30 % [facility] LABORATORY Comment: Immature granulocytes(IG's)percentage an d absolute count will include metamyelocytes, myelocytes, and promyelo cytes. Blood smears from CBCs yielding IG's will be scanned manually for concor dance. If this scan disagrees with the automated IG or if promyelocytes are not ed, a manual differential will be performed. Gemini Gran Abs 1.56 (H) 0.00 - 0.04 x10(3)/[facility] LABORATORY Specimen Anatomical Collection Method Collection Time Receive d Time (Source) Location / / Volume Laterality Blood 02/18/2022 4:01 AM 4:16 EDT AM EDT Resulting Agency Comment Spec In Lab Collette Dye MD HEMATOLOGY ORDERABLES Performing Organization Address City/State/[place] [address] (ABNORMAL) Hemogram (02/18/2022 4:01 AM EDT) Analysis Performed At Patho logist Time Signature WBC 15.2 (H) 4.0 - 9.5 [facility] x10(3)/[facility] LABORATORY RBC 2.44 (L) 4.58 - [facility] 5.54 [facility] x10(6)/[facility] LABORATORY Hemoglobin 7.0 (L) 13.7 - [facility] 16.5 g/dL [facility] LABORATORY Hematocrit 22.0 (L) 40.5 - [facility] 48.5 % [facility] LABORATORY MCV 90.2 82.9 - [facility] fL [facility] LAB[facility]ATORY MCH 28.7 27.5 - [facility] 32.1 pg [facility] LABORATORY MCHC 31.8 (L) 32.0 - [facility] 35.7 g/dL [facility] LABORATORY Platelets 325 145 - 357 [facility] x10(3)/[facility] LABORATORY RDWSD 51.1 (H) 36.0 - [facility] 45.0 [facility] LABORATORY RDWCV 15.5 (H) 11.4 - [facility] 13.8 % [facility] LABORATORY MPV 8.8 7.6 - 12.9 [facility] LABORATORY nRBC % Auto 0.0 % [facility] LABORATORY nRBC Abs Auto 0.000 0.000 - [facility] 0.000 [facility] x10(3)/[facility] LABORATORY Specimen Anatomical Collection Method Collection Time Receive d Time (Source) Location / / Volume Laterality Blood 02/18/2022 4:01 AM 4:16 EDT AM EDT Resulting Agency Comment Spec In Lab Collette Dye MD HEMATOLOGY ORDERABLES Performing Organization Address City/State/[place] [address] (ABNORMAL) Basic Metabolic Panel (non-fasting) (02/18/2022 4:01 AM EDT) P athologist Signature Glucose Lvl 98 65 - 199 [facility] mg/dL [facility] LABORATORY Comment: Diabetes: >=200 mg/dL plus symp toms BUN 36 (H) 10 - 20 mg/dL [facility] LABORATORY Creatinine 3.80 (H) 0.80 - 1.50 mg/dL [facility] LABORATORY Comment: result rechecked-trb Sodium 132 (L) 135 - 145 mmol/L [facility] LABORATORY Potassium 4.3 3.5 - 5.0 mmol/L [facility] LABORATORY Comment: Please note: ??Patients with WBC >100,00 0 may have falsely elevated Potassium levels. ??For accurate Potassium quantif ication in these patients send serum separator tube (gold top) for subsequent determinations. ??Contact the Clinical Chemistry Laboratory if there are any qu estions. Chloride 97 (L) 98 - 107 mmol/L [facility] LABORATORY CO2 28 22 - 31 mmol/L [facility] LABORATORY Anion Gap 7 5 - 15 mmol/L [facility] LABORATORY Calcium 7.9 (L) 8.5 - 10.5 mg/dL [facility] LABORATORY Estimated GFR 21 (L) >=60 mL/min/1.73 m?? [facility] LABORATORY Comment: This patient's estimated GFR [...] Organization Address City/State/ZIP Code Phon e Number [address] (ABNORMAL) Phosphorus (02/18/2022 4:01 AM EDT) P athologist Signature Phosphorus 4.9 (H) 2.5 - 4.5 [facility] mg/dL [facility] LABORATORY Specimen Anatomical Collection Method Collection Time Receive d Time (Source) Location / / Volume Laterality Blood 02/18/2022 4:01 AM 2 4:17 EDT AM EDT Resulting Agency Comment Spec In Lab Gela Novak MD CHEMISTRY ORDERABLES Performing Organization Address City/State/ZIP Code Phon e Number [address] Magnesium (02/18/2022 4:01 AM EDT) P athologist Signature Magnesium 0.79 0.69 - 1.07 [facility] mmol/L [facility] LABORATORY Specimen Anatomical Collection Method Collection Time Receive d Time (Source) Location / / Volume Laterality Blood 02/18/2022 4:01 AM 4:17 EDT AM EDT Resulting Agency Comment Spec In Lab Gela Novak MD CHEMISTRY ORDERABLES Performing Organization Address City/[facility]/ZIP Code Phon e Number [address] Anaerobic Culture (02/17/2022 8:35 AM EDT) [facility] [employer] Method Time Signature Anaerobic No anaerobic [facility] Culture organisms [facility] LABORATORY Specimen Anatomical Collection Method Collection Time Receive d Time (Source) Location / / Volume Laterality Deep Wound STRUCTURE OF LEFT 02/17/2022 8:35 AM / THIGH / Unknown EDT 10:03 AM EDT Comment: Left lateral thigh wound Resulting Agency Comment Spec In Lab Jayme Armstrong MD MICROBIOLOGY - GENERAL ORDER JT Performing Organization Address [facility] [place] [address] (ABNORMAL) Abscess/Wound Aspirate Culture (02/17/2022 8:35 AM EDT) Component Value Ref Test Analysis Performed At [facility] [employer] Range Method Time Signature Abscess/Woun One colony of JOS[facility] d Aspirate Serratia marcescens [place] Culture : Susceptibilities [facility] (A) LABORATORY Gram Stain Moderate Neutrophils JOS[facility] No microorganisms seen. [facility] (A) [facility] LABORATORY Organism Serratia marcescens [facility] (A) [facility] LABORATORY Specimen Anatomical Collection Method Collection Time Receive d Time (Source) Location / / Volume Laterality Deep Wound STRUCTURE OF LEFT 02/17/2022 8:35 AM / THIGH / Unknown EDT 10:03 AM EDT Comment: Left lateral thigh wound Resulting Agency Comment Spec In Lab Jayme Armstrong MD MICROBIOLOGY - GENERAL ORDER JT Performing Organization Address City/[facility]/ZIP Code Phon e Number [address] Anaerobic Culture (02/17/2022 8:35 AM EDT) [facility] Method Time Signature Anaerobic No anaerobic [facility] Culture organisms [facility] LABORATORY Specimen Anatomical Collection Method Collection Time Receive d Time (Source) Location / / Volume Laterality Deep Wound STRUCTURE OF LEFT 02/17/2022 8:35 AM 01/30 THIGH / Unknown EDT 10:02 AM EDT Comment: left superior thigh wound Resulting Agency Comment Spec In Lab Jayme Armstrong MD MICROBIOLOGY - GENERAL ORDER JT Performing Organization Address City/[facility] [place] [address] (ABNORMAL) Abscess/Wound Aspirate Culture (02/17/2022 8:35 AM EDT) Component Value Ref Test Analysis Performed At [facility] Method Time Signature Abscess/Woun One colony of Serratia gabriele scens : Susceptibilities previously reported [place] Aspirate One colony of Pseudomonas ae ruginosa : Susceptibilities previously reported [place] Culture (A) [facility] LABORATORY Gram Stain Moderate Neutrophils seen MAR Y No microorganisms seen. [facility] OCK (A) [facility] LABORATORY Organism Serratia marcescens [facility] (A) [facility] LABORATORY Organism Pseudomonas [facility] aeruginosa (A) [facility] LABORATORY Specimen Anatomical Collection Method Collection Time Receive d Time (Source) Location / / Volume Laterality Deep Wound STRUCTURE OF LEFT 02/17/2022 8:35 AM 01/30 THIGH / Unknown EDT 10:02 AM EDT Comment: left superior thigh wound Resulting Agency Comment Spec In Lab Jayme Armstrong MD MICROBIOLOGY - GENERAL ORDER JT Performing Organization Address City/[facility]/[place] [address] (ABNORMAL) Differential, Automated (02/17/2022 3:40 AM EDT) [facility] Method Time Signature Neutrophils % 66.7 % [facility] LABORATORY Neutr Abs (ANC) 11.34 (H) 1.70 - [facility] 6.10 [facility] x10(3)/[facility] L LABORATORY Lymphocytes % 8.6 % [facility] LABORATORY Lymphocytes Abs 1.5 0.9 - 3.2 [facility] x10(3)/[facility] LABORATORY Monocytes % 6.6 % [facility] LABORATORY Monocyte Abs 1.1 (H) 0.3 - 0.9 [facility] x10(3)/[facility] LABORATORY Eosinophils % 3.9 % [facility] LABORATORY Eosinophils Abs 0.7 (H) 0.0 - 0.4 [facility] x10(3)/[facility] LABORATORY Basophils % 0.5 % [facility] LABORATORY Basophils Abs 0.1 0.0 - 0.1 [facility] x10(3)/[facility] LABORATORY Immature Gran % 13.70 % [facility] LABORATORY Comment: Immature granulocytes(IG's)percentage an d absolute count will include metamyelocytes, myelocytes, and promyelo cytes. Blood smears from CBCs yielding IG's will be scanned manually for concor dance. If this scan disagrees with the automated IG or if promyelocytes are not ed, a manual differential will be performed. Gemini Gran Abs 2.33 (H) 0.00 - 0.04 x10(3)/[facility] LABORATORY Specimen Anatomical Collection Method Collection Time Receive d Time (Source) Location / / Volume Laterality Blood 02/17/2022 3:40 AM 3:59 EDT AM EDT Resulting Agency Comment Spec In Lab Collette Dye MD HEMATOLOGY ORDERABLES Performing Organization Address City/State/[place] [address] (ABNORMAL) Hemogram (02/17/2022 3:40 AM EDT) Analysis Performed At Patho logist Time Signature WBC 17.0 (H) 4.0 - 9.5 [facility] x10(3)/[facility] LABORATORY RBC 2.46 (L) 4.58 - [facility] 5.54 [facility] x10(6)/[facility] LABORATORY Hemoglobin 7.1 (L) 13.7 - [facility] 16.5 g/dL [facility] LABORATORY Hematocrit 22.2 (L) 40.5 - [facility] 48.5 % [facility] LABORATORY MCV 90.2 82.9 - [facility] 93.1 [facility] LABORATORY MCH 28.9 27.5 - [facility] 32.1 pg [facility] LABORATORY MCHC 32.0 32.0 - [facility] 35.7 g/dL [facility] LABORATORY Platelets 316 145 - 357 [facility] [place] x10(3)/[facility] LABORATORY RDWSD 51.5 (H) 36.0 - [facility] 45.0 [facility] LABORATORY RDWCV 15.7 (H) 11.4 - [facility] 13.8 % [facility] LABORATORY MPV 9.0 7.6 - 12.9 [facility] LABORATORY nRBC % Auto 0.0 % [facility] LABORATORY nRBC Abs Auto 0.000 0.000 - [facility] 0.000 [facility] x10(3)/[facility] LABORATORY Specimen Anatomical Collection Method Collection Time Receive d Time (Source) Location / / Volume Laterality Blood 02/17/2022 3:40 AM 2 3:59 EDT AM EDT Resulting Agency Comment Spec In Lab Collette Dye MD HEMATOLOGY ORDERABLES Performing Organization Address City/State/[place] [address] (ABNORMAL) Basic Metabolic Panel (non-fasting) (02/17/2022 3:40 AM EDT) P athologist Signature Glucose Lvl 101 65 - 199 [facility] mg/dL [facility] LABORATORY Comment: Diabetes: >=200 mg/dL plus symp toms BUN 51 (H) 10 - 20 mg/dL [facility] LABORATORY Creatinine 5.07 (H) 0.80 - 1.50 mg/dL [facility] LABORATORY Comment: result rechecked-sf Sodium 130 (L) 135 - 145 mmol/L [facility] LABORATORY Potassium 4.5 3.5 - 5.0 mmol/L [facility] LABORATORY Comment: Please note: ??Patients with WBC >100,00 0 may have falsely elevated Potassium levels. ??For accurate Potassium quantif ication in these patients send serum separator tube (gold top) for subsequent determinations. ??Contact the Clinical Chemistry Laboratory if there are any qu estions. Chloride 96 (L) 98 - 107 mmol/L [facility] LABORATORY CO2 24 22 - 31 mmol/L [facility] LABORATORY Anion Gap 10 5 - 15 mmol/L [facility] LABORATORY Calcium 7.8 (L) 8.5 - 10.5 mg/dL [facility] LABORATORY Estimated GFR 15 (L) >=60 mL/min/1.73 m?? [facility] LABORATORY Comment: This patient's estimated GFR [...] Organization Address City/State/[place] [address] (ABNORMAL) Phosphorus (02/17/2022 3:40 AM EDT) P athologist Signature Phosphorus 5.7 (H) 2.5 - 4.5 [facility] mg/dL [facility] LABORATORY Specimen Anatomical Collection Method Collection Time Receive d Time (Source) Location / / Volume Laterality Blood 02/17/2022 3:40 AM 2 3:59 EDT AM EDT Resulting Agency Comment Spec In Lab Gela Novak MD CHEMISTRY ORDERABLES Performing Organization Address City/State/[place] [address] [facility] LABORATORY Drive Magnesium (02/17/2022 3:40 AM EDT) P athologist Signature Magnesium 0.86 0.69 - 1.07 [facility] mmol/L [facility] LABORATORY Specimen Anatomical Collection Method Collection Time Receive d Time (Source) Location / / Volume Laterality Blood 02/17/2022 3:40 AM 3:59 EDT AM EDT Resulting Agency Comment Spec In Lab Gela Novak MD CHEMISTRY ORDERABLES Performing Organization Address City/State/ZIP Code Phon e Number [place] [id number] [facility] LABORATORY Drive (ABNORMAL) Differential, Automated (02/16/2022 4:05 AM EDT) Patholo gist Method Time Signature Neutrophils % 66.8 % [facility] LABORATORY Neutr Abs (ANC) 12.70 (H) 1.70 - [facility] 6.10 [facility] x10(3)/[facility] LABORATORY Lymphocytes % 6.8 % [facility] LABORATORY Lymphocytes Abs 1.3 0.9 - 3.2 [facility] x10(3)/[facility] LABORATORY Monocytes % 5.9 % [facility] LABORATORY Monocyte Abs 1.1 (H) 0.3 - 0.9 [facility] x10(3)/[facility] LABORATORY Eosinophils % 3.2 % [facility] [facility] Eosinophils Abs 0.6 (H) 0.0 - 0.4 [facility] x10(3)/[facility] LABORATORY Basophils % 0.6 % [facility] Basophils Abs 0.1 0.0 - 0.1 [facility] x10(3)/[facility] LABORATORY Immature Gran % 16.70 % [facility] Comment: Immature granulocytes(IG's)percentage an d absolute count will include metamyelocytes, myelocytes, and promyelo cytes. Blood smears from CBCs yielding IG's will be scanned manually for concor dance. If this scan disagrees with the automated IG or if promyelocytes are not ed, a manual differential will be performed. Gemini Gran Abs 3.17 (H) 0.00 - 0.04 x10(3)/[facility] LABORATORY Specimen Anatomical Collection Method Collection Time Receive d Time (Source) Location / / Volume Laterality Blood 02/16/2022 4:05 AM 2 4:20 EDT AM EDT Resulting Agency Comment Spec In Lab Veto Hidalgo MD HEMATOLOGY ORDERABLES Performing Organization Address City/State/[place] [address] (ABNORMAL) Hemogram (02/16/2022 4:05 AM EDT) Analysis Performed At Patho logist Time Signature WBC 19.0 (H) 4.0 - 9.5 [facility] x10(3)/[facility] LABORATORY RBC 2.50 (L) 4.58 - [facility].54 [facility] x10(6)/[facility] LABORATORY Hemoglobin 7.3 (L) 13.7 - [facility] 16.5 g/dL [facility] Hematocrit 22.3 (L) 40.5 - [facility] 48.5 % [facility] MCV 89.2 82.9 - [facility] 93.1 [facility] LABORATORY MCH 29.2 27.5 - [facility] 32.1 pg [facility] MCHC 32.7 32.0 - [facility] 35.7 g/dL [facility] Platelets 296 145 - 357 [facility] x10(3)/[facility] LABORATORY RDWSD 51.5 (H) 36.0 - [facility] MANDO 45.0 [facility] LABORATORY RDWCV 15.7 (H) 11.4 - [facility] MANDO 13.8 % [facility] MPV 9.2 7.6 - 12.9 [facility] LABORATORY nRBC % Auto 0.0 % [facility] nRBC Abs Auto 0.000 0.000 - [facility] MANDO 0.000 [facility] x10(3)/[facility] LABORATORY Specimen Anatomical Collection Method Collection Time Receive d Time (Source) Location / / Volume Laterality Blood 02/16/2022 4:05 AM 4:20 EDT AM EDT Resulting Agency Comment Spec In Lab Veto Hidalgo MD HEMATOLOGY ORDERABLES Performing Organization Address City/State/[place] [address] (ABNORMAL) Basic Metabolic Panel (non-fasting) (02/16/2022 4:05 AM EDT) P athologist Signature Glucose Lvl 94 65 - 199 [facility] mg/dL [facility] Comment: Diabetes: >=200 mg/dL plus symp toms BUN 35 (H) 10 - 20 mg/dL [facility] Creatinine 3.65 (H) 0.80 - 1.50 mg/dL [facility] Comment: result rechecked-bm Sodium 128 (L) 135 - 145 mmol/L [facility] Potassium 4.4 3.5 - 5.0 mmol/L [facility] Comment: Please note: ??Patients with WBC >100,00 0 may have falsely elevated Potassium levels. ??For accurate Potassium quantif ication in these patients send serum separator tube (gold top) for subsequent determinations. ??Contact the Clinical Chemistry Laboratory if there are any qu estions. Chloride 95 (L) 98 - 107 mmol/L [facility] CO2 26 22 - 31 mmol/L [facility] Anion Gap 7 5 - 15 mmol/L [facility] Calcium 7.7 (L) 8.5 - 10.5 mg/dL [facility] Estimated GFR 22 (L) >=60 mL/min/1.73 m?? [facility] Comment: This patient's estimated GFR [...] Novak MD CHEMISTRY ORDERABLES Performing Organization Address City/[facility]/[place] [address] Phosphorus (02/16/2022 4:05 AM EDT) P athologist Signature Phosphorus 4.5 2.5 - 4.5 [facility] mg/dL [facility] Specimen Anatomical Collection Method Collection Time Receive d Time (Source) Location / / Volume Laterality Blood 02/16/2022 4:05 AM 2 4:20 EDT AM EDT Resulting Agency Comment Spec In Lab Gela Novak MD CHEMISTRY ORDERABLES Performing Organization Address City/State/[place] [address] Magnesium (02/16/2022 4:05 AM EDT) P athologist Signature Magnesium 0.83 0.69 - 1.07 [facility] mmol/L [facility] Specimen Anatomical Collection Method Collection Time Receive d Time (Source) Location / / Volume Laterality Blood 02/16/2022 4:05 AM 2 4:20 EDT AM EDT Resulting Agency Comment Spec In Lab Gela Novak MD CHEMISTRY ORDERABLES Performing Organization Address City/State/[place] [address] Anaerobic Culture (02/15/2022 9:06 AM EDT) Patholo gist Method Time Signature Anaerobic No anaerobic [facility] Culture organisms [facility] LABORATORY Specimen Anatomical Collection Method Collection Time Receive d Time (Source) Location / / Volume Laterality Deep Wound STRUCTURE OF LEFT 02/15/2022 9:06 AM 01/29 THIGH / Unknown EDT 10:49 AM EDT Comment: Left thigh wound culture Resulting Agency Comment Spec In Lab Jayme Armstrong MD MICROBIOLOGY - GENERAL ORDER JT Performing Organization Address City/State/ZIP [place] [address] (ABNORMAL) Abscess/Wound Aspirate Culture (02/15/2022 9:06 AM EDT) [facility] Method Time Signature Abscess/Wound Few Serratia marcescens MA RY Aspirate Rare Pseudomonas aeruginosa HI [facility] Culture Rare mixed bacterial morphotypes suggestive of normal cutaneous yessy [facility] Gram Stain Moderate Gram Positive Cocci J[facility] Rare Gram Negative Rods [facility] ([facility] LABORATORY Organism Serratia [facility] marcescens (A) [facility] LABORATORY Organism Pseudomonas [facility] aeruginosa (A) [facility] LABORATORY Specimen Anatomical Collection Method Collection Time [...] Organization Address City/State/[place] [address] (ABNORMAL) Differential, Automated (02/15/2022 3:50 AM EDT) [facility] gist Method Time Signature Neutrophils % 61.8 % [facility] Neutr Abs (ANC) 13.66 (H) 1.70 - [facility] 6.10 [facility] x10(3)/[facility] LABORATORY Lymphocytes % 7.3 % [facility] Lymphocytes Abs 1.6 0.9 - 3.2 [facility] x10(3)/[facility] LABORATORY Monocytes % 5.4 % [facility] Monocyte Abs 1.2 (H) 0.3 - 0.9 [facility] x10(3)/[facility] LABORATORY Eosinophils % 3.1 % [facility] Eosinophils Abs 0.7 (H) 0.0 - 0.4 [facility] x10(3)/[facility] LABORATORY Basophils % 0.5 % [facility] Basophils Abs 0.1 0.0 - 0.1 [facility] x10(3)/[facility] LABORATORY Immature Gran % 21.90 % [facility] Comment: Immature granulocytes(IG's)percentage an d absolute count will include metamyelocytes, myelocytes, and promyelo cytes. Blood smears from CBCs yielding IG's will be scanned manually for ny crain. If this scan disagrees with the automated IG or if promyelocytes are not ed, a manual differential will be performed. Gemini Gran Abs 4.85 (H) 0.00 - 0.04 x10(3)/[facility] LABORATORY Specimen Anatomical Collection Method Collection Time Receive d Time (Source) Location / / Volume Laterality Blood 02/15/2022 3:50 AM 4:05 EDT AM EDT Resulting Agency Comment Spec In Lab Veto Hidalgo MD HEMATOLOGY ORDERABLES Performing Organization Address City/State/[place] [address] (ABNORMAL) Hemogram (02/15/2022 3:50 AM EDT) Analysis Performed At Patho logist Time Signature WBC 22.1 (H) 4.0 - 9.5 [facility] x10(3)/[facility] LABORATORY RBC 2.43 (L) 4.58 - [facility] 5.54 [facility] x10(6)/[facility] LABORATORY Hemoglobin 7.2 (L) 13.7 - [facility]dL [facility] Hematocrit 21.3 (L) 40.5 - [facility] 48.5 % [facility] MCV 87.7 82.9 - [facility] 93.1 [facility] LABORATORY MCH 29.6 27.5 - [facility] 32.1 pg [facility] MCHC 33.8 32.0 - [facility] 35.7 g/dL [facility] Platelets 254 145 - 357 [facility] x10(3)/[facility] LABORATORY RDWSD 49.2 (H) 36.0 - [facility] 45.0 [facility] LABORATORY RDWCV 15.3 (H) 11.4 - [facility] 13.8 % [facility] MPV 9.3 7.6 - 12.9 [facility] LABORATORY nRBC % Auto 0.0 % [facility] nRBC Abs Auto 0.000 0.000 - [facility] x10(3)/[facility] LABORATORY Specimen Anatomical Collection Method Collection Time Receive d Time (Source) Location / / Volume Laterality Blood 02/15/2022 3:50 AM 4:05 EDT AM EDT Resulting Agency Comment Spec In Lab Veto Hidalgo MD HEMATOLOGY ORDERABLES Performing Organization Address City/State/[place] [address] (ABNORMAL) Basic Metabolic Panel (non-fasting) (02/15/2022 3:50 AM EDT) P athologist Signature Glucose Lvl 91 65 - 199 [facility] mg/dL [facility] Comment: Diabetes: >=200 mg/dL plus symp toms BUN 62 (H) 10 - 20 mg/dL [facility] Creatinine 5.16 (H) 0.80 - 1.50 mg/dL [facility] Comment: result rechecked- Sodium 126 (L) 135 - 145 mmol/L [facility] Potassium 4.8 3.5 - 5.0 mmol/L [facility] Comment: Please note: ??Patients with WBC >100,00 0 may have falsely elevated Potassium levels. ??For accurate Potassium quantif ication in these patients send serum separator tube (gold top) for subsequent determinations. ??Contact the Clinical Chemistry Laboratory if there are any qu estions. Chloride 92 (L) 98 - 107 mmol/L [facility] CO2 23 22 - 31 mmol/L [facility] Anion Gap 11 5 - 15 mmol/L [facility] Calcium 7.5 (L) 8.5 - 10.5 mg/dL [facility] Estimated GFR 14 (L) >=60 mL/min/1.73 m?? [facility] Comment: This patient's estimated GFR [...] Novak MD CHEMISTRY ORDERABLES Performing Organization Address City/[facility]/ZIP Code Phon e Number [address] (ABNORMAL) Phosphorus (02/15/2022 3:50 AM EDT) P athologist Signature Phosphorus 5.7 (H) 2.5 - 4.[address] [facility] mg/dL [facility]ORY Specimen Anatomical Collection Method Collection Time Receive d Time (Source) Location / / Volume Laterality Blood 02/15/2022 3:50 AM 2 4:05 EDT AM EDT Resulting Agency Comment Spec In Lab Gela Novak MD CHEMISTRY ORDERABLES Performing Organization Address City/[facility]/[place] [address] Magnesium (02/15/2022 3:50 AM EDT) P athologist Signature Magnesium 0.82 0.69 - 1.[address] [facility] [address] mmol/L [facility] Specimen Anatomical Collection Method Collection Time Receive d Time (Source) Location / / Volume Laterality Blood 02/15/2022 3:50 AM 2 4:05 EDT AM EDT Resulting Agency Comment Spec In Lab Gela Novak MD CHEMISTRY ORDERABLES Performing Organization Address City/[facility]/[place] [address] Scan, Peripheral Blood (02/14/2022 5:26 AM EDT) Patholo gist Method Time Signature Plat Estimate Normal [facility] RBC Morphology Abnormal [facility] Hypochromia Slight [facility] Specimen Anatomical Collection Method Collection Time Receive d Time (Source) Location / / Volume Laterality Blood 02/14/2022 5:26 AM 5:45 EDT AM EDT Resulting Agency Comment Spec In Lab Veto Hidalgo MD HEMATOLOGY ORDERABLES Performing Organization Address City/State/[place] [address] (ABNORMAL) Differential, Automated (02/14/2022 5:26 AM EDT) [facility] Method Time Signature Neutrophils % 52.2 % [facility] Neutr Abs (ANC) 12.07 (H) 1.70 - [facility] 6.10 [facility] x10(3)/[facility] LABORATORY Lymphocytes % 7.7 % [facility]ORY Lymphocytes Abs 1.8 0.9 - 3.2 [facility] x10(3)/[facility] LABORATORY Monocytes % 6.7 % [facility] Monocyte Abs 1.5 (H) 0.3 - 0.9 [facility] x10(3)/[facility] LABORATORY Eosinophils % 3.1 % [facility] Eosinophils Abs 0.7 (H) 0.0 - 0.4 [facility] x10(3)/[facility] LABORATORY Basophils % 0.3 % [facility] Basophils Abs 0.1 0.0 - 0.1 [facility] x10(3)/[facility] LABORATORY Immature Gran % 30.00 % [facility] Comment: Immature granulocytes(IG's)percentage an d absolute count will include metamyelocytes, myelocytes, and promyelo cytes. Blood smears from CBCs yielding IG's will be scanned manually for concor dance. If this scan disagrees with the automated IG or if promyelocytes are not ed, a manual differential will be performed. Gemini Gran Abs 6.92 (H) 0.00 - 0.04 x10(3)/[facility] LABORATORY Specimen Anatomical Collection Method Collection Time Receive d Time (Source) Location / / Volume Laterality Blood 02/14/2022 5:26 AM 2 5:45 EDT AM EDT Resulting Agency Comment Spec In Lab Veto Hidalgo MD HEMATOLOGY ORDERABLES Performing Organization Address City/State/[place] [address] (ABNORMAL) Hemogram (02/14/2022 5:26 AM EDT) Analysis Performed At Patho logist Time Signature WBC 23.1 (H) 4.0 - 9.5 [facility] x10(3)/[facility] LABORATORY RBC 2.62 (L) 4.58 - [facility] 5.54 [facility] x10(6)/[facility] LABORATORY Hemoglobin 8.0 (L) 13.7 - [facility]/dL [facility] Hematocrit 23.0 (L) 40.5 - [facility] 48.5 % [facility] MCV 87.8 82.9 - [facility] 93.1 [facility] LABORATORY MCH 30.5 27.5 - [facility] 32[facility]1 pg [facility] MCHC 34.8 32.0 - [facility] 35.7 g/dL [facility] Platelets 240 145 - 357 [facility] x10(3)/[facility] LABORATORY RDWSD 49.2 (H) 36.0 - [facility] 45.0 [facility] LABORATORY RDWCV 15.5 (H) 11.4 - [facility] MANDO 13.8 % [facility] LABORATORY MPV 9.4 7.6 - 12.9 [facility] LABORATORY nRBC % Auto 0.0 % [facility] nRBC Abs Auto 0.000 0.000 - [facility] MANDO 0.000 [facility] x10(3)/[facility] LABORATORY Specimen Anatomical Collection Method Collection Time Receive d Time (Source) Location / / Volume Laterality Blood 02/14/2022 5:26 AM 2 5:45 EDT AM EDT Resulting Agency Comment Spec In Lab Veto Hidalgo MD HEMATOLOGY ORDERABLES Performing Organization Address City/State/[place] [address] (ABNORMAL) Basic Metabolic Panel (non-fasting) (02/14/2022 5:26 AM EDT) P athologist Signature Glucose Lvl 92 65 - 199 [facility] mg/dL [facility] Comment: Diabetes: >=200 mg/dL plus symp toms BUN 47 (H) 10 - 20 mg/dL [facility] Creatinine 4.06 (H) 0.80 - 1.50 mg/dL [facility] Comment: result rechecked-KS Sodium 127 (L) 135 - 145 mmol/L [facility] Potassium 4.4 3.5 - 5.0 mmol/L [facility] Comment: Please note: ??Patients with WBC >100,00 0 may have falsely elevated Potassium levels. ??For accurate Potassium quantif ication in these patients send serum separator tube (gold top) for subsequent determinations. ??Contact the Clinical Chemistry Laboratory if there are any qu estions. Chloride 91 (L) 98 - 107 mmol/L [facility] CO2 23 22 - 31 mmol/L [facility] Anion Gap 13 5 - 15 mmol/L [facility] Calcium 7.1 (L) 8.5 - 10.5 mg/dL [facility] Estimated GFR 19 (L) >=60 mL/min/1.73 m?? [facility] Comment: This patient's estimated GFR [...] Novak MD CHEMISTRY ORDERABLES Performing Organization Address City/[facility]/ZIP Code Phon e Number [address] (ABNORMAL) Phosphorus (02/14/2022 5:26 AM EDT) P athologist Signature Phosphorus 4.7 (H) 2.5 - 4.5 [facility] mg/dL [facility]OR[facility]ORY Specimen Anatomical Collection Method Collection Time Receive d Time (Source) Location / / Volume Laterality Blood 02/14/2022 5:26 AM 2 5:45 EDT AM EDT Resulting Agency Comment Spec In Lab Gela Novak MD CHEMISTRY ORDERABLES Performing Organization Address City/[facility]/[place] [address] Magnesium (02/14/2022 5:26 AM EDT) P athologist Signature Magnesium 0.80 0.69 - 1.07 [facility] mmol/L [facility] LABORATORY Specimen Anatomical Collection Method Collection Time Receive d Time (Source) Location / / Volume Laterality Blood 02/14/2022 5:26 AM 2 5:45 EDT AM EDT Resulting Agency Comment Spec In Lab Gela Novak MD CHEMISTRY ORDERABLES Performing Organization Address City/[facility]/[place] [address] Femur w Contrast [...] who have questions please contact the health manager wound care that requested your imaging first. ? Electronically signed by: Zander Hayes DO [facility] ([phone]), at 02/13/2022 6:27 PM Narrative 02/13/2022 6:27 [...] ho have questions please contact the health manager wound care that requested your imaging first. Electronically signed by: Zander Hayes DO, [facility] ([phone]), at 02/13/2022 6:27 PM Parrish Betancourt MD IMG CT ORDERABLES CT [...] who have questions please contact the health manager wound care that requested your imaging first. ? Electronically signed by: Zander Hayes DO, [facility] ([phone]), at 02/13/2022 6:27 PM Narrative 02/13/2022 6:27 [...] ho have questions please contact the health manager wound care that requested your imaging first. Electronically signed by: Zander Hayes DO, [facility] ([phone]), at 02/13/2022 6:27 PM Parrish Betancourt MD [...] who have questions please contact the health manager wound care that requested your imaging first. ? Electronically signed by: Mercedes Redding MD , [facility] ([phone]), at 02/13/2022 8:56 AM Narrative 02/13/2022 8:56 [...] ho have questions please contact the health manager wound care that requested your imaging first. Parrish Betancourt MD IMG DX ORDERABLES Scan, Peripheral Blood (02/13/2022 12:20 AM EDT) [facility] gist Method Time Signature Plat Estimate Normal [facility]ORY RBC Morphology Abnormal [facility] Hypochromia Slight [facility] Angel Cells 1-5 /HPF [facility] Stippled RBCs Present >1/HPF [facility] Toxic Present [facility] LABORATORY Specimen Anatomical Collection Method Collection Time Receive d Time (Source) Location / / Volume Laterality Blood 02/13/2022 12:20 02/13/2022 AM EDT 12:37 AM EDT Resulting Agency Comment Spec In Lab Kaitlyn Rock MD HEMATOLOGY ORDERABLES Performing Organization Address City/State/[place] [address] (ABNORMAL) Differential, Automated (02/13/2022 12:20 AM EDT) [facility] Method Time Signature Neutrophils % 44.9 % [facility]ORATORY Neutr Abs (ANC) 11.00 (H) 1.70 - [facility] 6.10 [facility] x10(3)/[facility] LABORATORY Lymphocytes % 8.8 % [facility]ORY Lymphocytes Abs 2.2 0.9 - 3.2 [facility] x10(3)/[facility] LABORATORY Monocytes % 9.3 % [facility]ORY Monocyte Abs 2.3 (H) 0.3 - 0.9 [facility] x10(3)/[facility] LABORATORY Eosinophils % 2.6 % [facility] Eosinophils Abs 0.6 (H) 0.0 - 0.4 [facility] x10(3)/[facility] LABORATORY Basophils % 0.3 % [facility] Basophils Abs 0.1 0.0 - 0.1 [facility] x10(3)/[facility] LABORATORY Immature Gran % 34.10 % [facility] Comment: Immature granulocytes(IG's)percentage an d absolute count will include metamyelocytes, myelocytes, and promyelo cytes. Blood smears from CBCs yielding IG's will be scanned manually for concor dance. If this scan disagrees with the automated IG or if promyelocytes are not ed, a manual differential will be performed. Gemini Gran Abs 8.35 (H) 0.00 - 0.04 x10(3)/[facility] LABORATORY Specimen Anatomical Collection Method Collection Time Receive d Time (Source) Location / / Volume Laterality Blood 02/13/2022 12:20 02/13/2022 AM EDT 12:37 AM EDT Resulting Agency Comment Spec In Lab Kaitlyn Rock MD HEMATOLOGY ORDERABLES Performing Organization Address City/State/[place] [address] (ABNORMAL) Hemogram (02/13/2022 12:20 AM EDT) Analysis Performed At Patho logist Time Signature WBC 24.5 (H) 4.0 - 9.5 [facility] x10(3)/[facility] LABORATORY RBC 2.72 (L) 4.58 - [facility] 5.54 [facility] x10(6)/[facility] LABORATORY Hemoglobin 8.0 (L) 13.7 - [facility] 16.5 g/dL [facility] LABORATORY Hematocrit 23.6 (L) 40.5 - [facility] 48.5 % [facility]ORATORY MCV 86.8 82.9 - [facility] 93.1 [facility] LABORATORY MCH 29.4 27.5 - [facility] 32.1 pg [facility] LABORATORY MCHC 33.9 32.0 - [facility] 35.7 g/dL [facility] Platelets 201 145 - 357 [facility] [place] x10(3)/[facility] LABORATORY RDWSD 48.3 (H) 36.0 - [facility] [place] 45.0 [facility] LABORATORY RDWCV 15.4 (H) 11.4 - [facility] [place] 13.8 % [facility] MPV 9.7 7.6 - 12.9 [facility] LABORATORY nRBC % Auto 0.0 % [facility] nRBC Abs Auto 0.000 0.000 - [facility] MAND[place] 0.000 [facility] x10(3)/[facility] LABORATORY Specimen Anatomical Collection Method Collection Time Receive d Time (Source) Location / / Volume Laterality Blood 02/13/2022 12:20 02/13/2022 AM EDT 12:37 AM EDT Resulting Agency Comment Spec In Lab Kaitlyn Rock MD HEMATOLOGY ORDERABLES Performing Organization Address City/State/[place] [address] (ABNORMAL) Basic Metabolic Panel (non-fasting) (02/13/2022 12:20 AM EDT) P athologist Signature Glucose Lvl 120 65 - 199 [facility] [place] mg/dL [facility] Comment: Diabetes: >=200 mg/dL plus symp toms BUN 30 (H) 10 - 20 mg/dL [facility] Creatinine 2.85 (H) 0.80 - 1.50 mg/dL [facility] Comment: result rechecked-bm Sodium 127 (L) 135 - 145 mmol/L [facility] Potassium 3.8 3.5 - 5.0 mmol/L [facility] Comment: Please note: ??Patients with WBC >100,00 0 may have falsely elevated Potassium levels. ??For accurate Potassium quantif ication in these patients send serum separator tube (gold top) for subsequent determinations. ??Contact the Clinical Chemistry Laboratory if there are any qu estions. Chloride 94 (L) 98 - 107 mmol/L [facility] CO2 27 22 - 31 mmol/L [facility] Anion Gap 6 5 - 15 mmol/L [facility] Calcium 7.0 (L) 8.5 - 10.5 mg/dL [facility] Comment: result rechecked-bm Estimated GFR 30 (L) >=60 mL/min/1.73 m?? [facility] Comment: This patient's estimated GFR [...] Organization Address City/State/[place] [address] Phosphorus (02/13/2022 12:20 AM EDT) P athologist Signature Phosphorus 2.8 2.5 - 4.5 [facility] [place] mg/dL [facility] Specimen Anatomical Collection Method Collection Time Receive d Time (Source) Location / / Volume Laterality Blood 02/13/2022 12:20 02/13/2022 AM EDT 12:37 AM EDT Resulting Agency Comment Spec In Lab Gela Novak MD CHEMISTRY ORDERABLES Performing Organization Address City/State/ZIP Code Phon e Number [address] Magnesium (02/13/2022 12:20 AM EDT) P athologist Signature Magnesium 0.79 0.69 - 1.07 [facility]/L [facility] Specimen Anatomical Collection Method Collection Time Receive d Time (Source) Location / / Volume Laterality Blood 02/13/2022 12:20 02/13/2022 AM EDT 12:37 AM EDT Resulting Agency Comment Spec In Lab Gela Novak MD CHEMISTRY ORDERABLES Performing Organization Address City/State/ZIP Code Phon e Number [address] (ABNORMAL) Sodium (02/12/2022 4:45 PM EDT) P athologist Signature Sodium 128 (L) 135 - [address]/L [facility] Specimen Anatomical Collection Method Collection Time Receive d Time (Source) Location / / Volume Laterality Blood 02/12/2022 4:45 PM 5:17 EDT PM EDT Resulting Agency Comment Spec In Lab Parrish Betancourt MD CHEMISTRY ORDERABLES Performing Organization Address City/State/ZIP Code Phon e Number [address] Prepare RBC (02/12/2022 9:55 AM EDT) athologist Signature Dispensed? Yes [facility] Specimen Anatomical Collection Method Collection Time Receive d Time (Source) Location / / Volume Laterality Blood 02/12/2022 9:55 AM 2 9:53 EDT AM EDT Parrish Betancourt MD BLOOD BANK ORDERABLES Performing Organization Address City/State/ZIP Code Phon e Number [address] (ABNORMAL) Sodium (02/12/2022 9:16 AM EDT) P athologist Signature Sodium 125 (L) 135 - 145 [facility] [place] mmol/L [facility] Specimen Anatomical Collection Method Collection Time Receive d Time (Source) Location / / Volume Laterality Blood 02/12/2022 9:16 AM 2 9:18 EDT AM EDT Resulting Agency Comment Spec In Lab Parrish Betancourt MD CHEMISTRY ORDERABLES Performing Organization Address City/[facility] Phon e Number [address] (ABNORMAL) Differential, Automated (02/12/2022 12:30 AM EDT) Patholo gist Method Time Signature Neutrophils % 49.1 % [facility] Neutr Abs (ANC) 11.38 (H) 1.70 - [facility] [place] 6.10 [facility] x10(3)/[facility] LABORATORY Lymphocytes % 8.6 % [facility] Lymphocytes Abs 2.0 0.9 - 3.2 [facility] [place] x10(3)/[facility] LABORATORY Monocytes % 10.6 % [facility] Monocyte Abs 2.4 (H) 0.3 - 0.9 [facility] [place] x10(3)/[facility] LABORATORY Eosinophils % 0.9 % [facility] Eosinophils Abs 0.2 0.0 - 0.4 [facility] [place] x10(3)/[facility] LABORATORY Basophils % 0.3 % [facility] Basophils Abs 0.1 0.0 - 0.1 [facility] [place] x10(3)/[facility] LABORATORY Immature Gran % 30.50 % [facility] Comment: Immature granulocytes(IG's)percentage an d absolute count will include metamyelocytes, myelocytes, and promyelo cytes. Blood smears from CBCs yielding IG's will be scanned manually for ny crain. If this scan disagrees with the automated IG or if promyelocytes are not ed, a manual differential will be performed. Gemini Gran Abs 7.06 (H) 0.00 - 0.04 x10(3)/[facility] LABORATORY Specimen Anatomical Collection Method Collection Time Receive d Time (Source) Location / / Volume Laterality Blood 02/12/2022 12:30 02/12/2022 1:03 AM EDT AM EDT Resulting Agency Comment Spec In Lab Kaitlyn Rock MD HEMATOLOGY ORDERABLES Performing Organization Address City/State/[place] [address] (ABNORMAL) Hemogram (02/12/2022 12:30 AM EDT) Analysis Performed At Patho logist Time Signature WBC 23.2 (H) 4.0 - 9.5 [facility] x[facility](3[facility] LABORATORY RBC 2.37 (L) 4.58 - [facility] [place] 5.54 [facility] x10(6)/[facility] LABORATORY Hemoglobin 6.9 (L) 13.7 [facility] 16.5 g/dL [facility] Hematocrit 20.7 (L) 40.5 - [facility] 48.5 % [facility] MCV 87.3 82.9 - [facility] [place] 93.1 [facility] LABORATORY MCH 29.1 27.5 - [facility] 32.1 pg [facility] MCHC 33.3 32.0 - [facility] 35.7 g/dL [facility] Platelets 166 145 - 357 [facility] [place] x10(3)/[facility] LABORATORY RDWSD 49.0 (H) 36.0 - [facility] [place] 45.0 [facility] LABORATORY RDWCV 15.5 (H) 11.4 - [facility] [place] 13.8 % [facility] MPV 10.2 7.6 - 12.9 [facility] LABORATORY nRBC % Auto 0.0 % [facility] nRBC Abs Auto 0.000 0.000 - [facility] [place] 0.000 [facility] x10(3)/[facility] LABORATORY Specimen Anatomical Collection Method Collection Time Receive d Time (Source) Location / / Volume Laterality Blood 02/12/2022 12:30 02/12/2022 1:03 AM EDT AM EDT Resulting Agency Comment Spec In Lab Kaitlyn Rock MD HEMATOLOGY ORDERABLES Performing Organization Address City/State/[place] [address] (ABNORMAL) Basic Metabolic Panel (non-fasting) (02/12/2022 12:30 AM EDT) athologist Signature Glucose Lvl 103 65 - 199 [facility] [place] mg/dL [facility] Comment: Diabetes: >=200 mg/dL plus symp toms BUN 39 (H) 10 - 20 mg/dL [facility] Comment: result rechecked-EWR Creatinine 3.74 (H) 0.80 - 1.50 mg/dL [facility] Comment: result rechecked-EWR Sodium 127 (L) 135 - 145 mmol/L [facility] Potassium 4.4 3.5 - 5.0 mmol/L [facility] Comment: Please note: ??Patients with WBC >100,00 0 may have falsely elevated Potassium levels. ??For accurate Potassium quantif ication in these patients send serum separator tube (gold top) for subsequent determinations. ??Contact the Clinical Chemistry Laboratory if there are any qu estions. Chloride 99 98 - 107 mmol/L [facility] CO2 21 (L) 22 - 31 mmol/L [facility] Anion Gap 7 5 - 15 mmol/L [facility] Calcium 6.1 (Critical) 8.5 - 10.5 mg/dL [facility] Comment: Called by: CLAUDIA, Read back by: Jesus Robertson, Date/Time:02/12/22 02:00. Estimated GFR 21 (L) >=60 mL/min/1.73 m?? [facility] Comment: This patient's estimated GFR [...] Novak MD CHEMISTRY ORDERABLES Performing Organization Address City/[facility]/ZIP Code Phon e Number [place] [phone] [facility] LABORATORY Drive Phosphorus (02/12/2022 12:30 AM EDT) P athologist Signature Phosphorus 2.7 2.5 - 4.[address] [facility] mg/dL [facility] Specimen Anatomical Collection Method Collection Time Receive d Time (Source) Location / / Volume Laterality Blood 02/12/2022 12:30 02/12/2022 1:03 AM EDT AM EDT Resulting Agency Comment Spec In Lab Gela Novak MD CHEMISTRY ORDERABLES Performing Organization Address City/[facility]/ZIP Code Phon e Number [place] [phone] HOSPITAL LAB[address]ORY Drive Magnesium (02/12/2022 12:30 AM EDT) P athologist Signature Magnesium 0.79 0.69 - 1.07 [facility] mmol/L [facility] Specimen Anatomical Collection Method Collection Time Receive d Time (Source) Location / / Volume Laterality Blood 02/12/2022 12:30 02/12/2022 1:03 AM EDT AM EDT Resulting Agency Comment Spec In Lab Gela Novak MD CHEMISTRY ORDERABLES Performing Organization Address City/[facility]/ZIP [facility] Phon e Number [place] [phone]OSP[address] LAB[address]ORY Drive (ABNORMAL) Albumin Level (02/12/2022 12:30 AM EDT) athologist Signature Albumin 1.3 (L) 3.2 - 5.[address] [facility] g/dL [facility] Specimen Anatomical Collection Method Collection Time Receive d Time (Source) Location / / Volume Laterality Blood 02/12/2022 12:30 02/12/2022 1:03 AM EDT AM EDT Resulting Agency Comment Spec In Lab Parrish Betancourt MD CHEMISTRY ORDERABLES Performing Organization Address City/[facility]/ZIP [facility] Phon e Number [address] (ABNORMAL) Prealbumin (02/12/2022 12:30 AM EDT) athologist Signature Prealbumin 15 (L) 20 - 40 [facility]/dL [facility] Comment: Prealbumin levels are generally lower in the pediatric population; adult concentrations are usually attained near puberty. Specimen Anatomical Collection Method Collection Time Receive d Time (Source) Location / / Volume Laterality Blood 02/12/2022 12:30 02/12/2022 1:03 AM EDT AM EDT Resulting Agency Comment Spec In Lab Parrish Betancourt MD CHEMISTRY ORDERABLES Performing Organization Address City/[facility] Phon e Number [address] SCAN DOC: LAB (02/12/2022 12:00 [...] who have questions please contact the health manager wound care that requested your imaging first. ? Narrative [...] ho have questions please contact the health manager wound care that requested your imaging first. Parrish Betancourt MD IMG MRI ORDERABLES (ABNORMAL) Sodium (02/11/2022 4:09 PM EDT) P athologist Signature Sodium 129 (L) 135 - 145 [facility] mmol/L [facility] Specimen Anatomical Collection Method Collection Time Receive d Time (Source) Location / / Volume Laterality Blood 02/11/2022 4:09 PM 2 4:33 EDT PM EDT Resulting Agency Comment Spec In Lab Parrish Betancourt MD CHEMISTRY ORDERABLES Performing Organization Address City/State/[place] [address] (ABNORMAL) Sodium (02/11/2022 8:20 AM EDT) P athologist Signature Sodium 127 (L) 135 - 145 [facility] mmol/L [facility] Specimen Anatomical Collection Method Collection Time Receive d Time (Source) Location / / Volume Laterality Blood 02/11/2022 8:20 AM 2 8:39 EDT AM EDT Resulting Agency Comment Spec In Lab Parrish Betancourt MD CHEMISTRY ORDERABLES Performing Organization Address City/[facility]/[place] [address] Scan, Peripheral Blood (02/11/2022 12:37 AM EDT) [facility] Method Time Signature Plat Estimate Decreased [facility] RBC Morphology Abnormal [facility] Polychromasia Present >5/HPF [facility] Ovalocytes 1-5 /HPF [facility] Stippled RBCs Present >1/HPF [facility] Dohle Bodies Present [facility] Specimen Anatomical Collection Method Collection Time Receive d Time (Source) Location / / Volume Laterality Blood 02/11/2022 12:37 02/11/2022 AM EDT 12:47 AM EDT Resulting Agency Comment Spec In Lab Jeanette Escamilla APRN HEMATOLOGY ORDERABLES Performing Organization Address City/[facility]/ZIP Code Phon e Number [address] Green Tube HOLD (02/11/2022 12:37 AM EDT) P athologist Signature Green Hold Sample in [facility] LABORATORY Specimen Anatomical Collection Method Collection Time Receive d Time (Source) Location / / Volume Laterality Blood Venous Draw / 02/11/2022 12:37 02/11/2022 Unknown AM EDT 12:48 AM EDT Jeanette Escamilla APRN CHEMISTRY ORDERABLES Performing Organization Address City/[facility]/[place] [address] (ABNORMAL) Differential, Automated (02/11/2022 12:37 AM EDT) [facility] Method Time Signature Neutrophils % 39.1 % [facility] Neutr Abs (ANC) 7.07 (H) 1.70 - [facility] [place] 6.10 [facility] x10(3)/[facility] LABORATORY Lymphocytes % 12.7 % [facility] Lymphocytes Abs 2.3 0.9 - 3.2 [facility] [place] x10(3)/[facility] LABORATORY Monocytes % 11.4 % [facility] Monocyte Abs 2.1 (H) 0.3 - 0.9 [facility] [place] x10(3)/[facility] LABORATORY Eosinophils % 2.9 % [facility] Eosinophils Abs 0.5 (H) 0.0 - 0.4 [facility] [place] x10(3)/[facility] LABORATORY Basophils % 0.5 % [facility] Basophils Abs 0.1 0.0 - 0.1 [facility] [place] x10(3)/[facility] LABORATORY Immature Gran % 33.40 % [facility] Comment: Immature granulocytes(IG's)percentage an d absolute count will include metamyelocytes, myelocytes, and promyelo cytes. Blood smears from CBCs yielding IG's will be scanned manually for concor dance. If this scan disagrees with the automated IG or if promyelocytes are not ed, a manual differential will be performed. Gemini Gran Abs 6.04 (H) 0.00 - 0.04 x10(3)/[facility] LABORATORY Specimen Anatomical Collection Method Collection Time Receive d Time (Source) Location / / Volume Laterality Blood 02/11/2022 12:37 02/11/2022 AM EDT 12:47 AM EDT Resulting Agency Comment Spec In Lab Jeanette Escamilla APRN HEMATOLOGY ORDERABLES Performing Organization Address City/State/[place] [address] (ABNORMAL) Hemogram (02/11/2022 12:37 AM EDT) Analysis Performed At Patho logist Time Signature WBC 18.1 (H) 4.0 - 9.5 [facility] [place] x10(3)/[facility] LABORATORY RBC 2.44 (L) 4.58 - [facility] [place] 5.54 [facility] x10(6)/[facility] LABORATORY Hemoglobin 7.0 (L) 13.7 - [facility] 16.5 g/dL [facility] Hematocrit 21.0 (L) 40.5 - [facility] 48.5 % [facility] MCV 86.1 82.9 - [facility] LABORATORY MCH 28.7 27.5 - [facility] 32.1 pg [facility] MCHC 33.3 32.0 - [facility] [place] 35.7 g/dL [facility] Platelets 140 (L) 145 - 357 [facility] [place] x10(3)/[facility] LABORATORY RDWSD 50.0 (H) 36.0 - [facility] [place] 45.0 [facility] LABORATORY RDWCV 15.9 (H) 11.4 - [facility] [place] 13.8 % [facility] MPV 10.0 7.6 - 12.9 [facility] LABORATORY nRBC % Auto 0.0 % [facility] nRBC Abs Auto 0.000 0.000 - [facility] [place] 0.000 [facility] x10(3)/[facility] LABORATORY Specimen Anatomical Collection Method Collection Time Receive d Time (Source) Location / / Volume Laterality Blood 02/11/2022 12:37 02/11/2022 AM EDT 12:47 AM EDT Resulting Agency Comment Spec In Lab Jeanette Escamilla APRN HEMATOLOGY ORDERABLES Performing Organization Address City/State/[place] [address] (ABNORMAL) Basic Metabolic Panel (non-fasting) (02/11/2022 12:37 AM EDT) P athologist Signature Glucose Lvl 125 65 - 199 [facility] [place] mg/dL [facility] Comment: Diabetes: >=200 mg/dL plus symp toms BUN 23 (H) 10 - 20 mg/dL [facility] Creatinine 2.42 (H) 0.80 - 1.50 mg/dL [facility] Sodium 128 (L) 135 - 145 mmol/L [facility] Potassium 3.8 3.5 - 5.0 mmol/L [facility] Comment: Please note: ??Patients with WBC >100,00 0 may have falsely elevated Potassium levels. ??For accurate Potassium quantif ication in these patients send serum separator tube (gold top) for subsequent determinations. ??Contact the Clinical Chemistry Laboratory if there are any qu estions. Chloride 96 (L) 98 - 107 mmol/L [facility] CO2 26 22 - 31 mmol/L [facility] Anion Gap 6 5 - 15 mmol/L [facility] Calcium 6.4 (Critical) 8.5 - 10.5 mg/dL [facility] Comment: Called by: , Read back by: sakshi abreu, Date/Time:02/11/22 01:43.l Estimated GFR 36 (L) >=60 mL/min/1.73 m?? [facility] Comment: This patient's estimated GFR [...] Organization Address City/State/[place] [address] (ABNORMAL) Phosphorus (02/11/2022 12:37 AM EDT) P athologist Signature Phosphorus 2.1 (L) 2.5 - 4.5 [facility] [place] mg/dL [facility] Specimen Anatomical Collection Method Collection Time Receive d Time (Source) Location / / Volume Laterality Blood 02/11/2022 12:37 02/11/2022 AM EDT 12:47 AM EDT Resulting Agency Comment Spec In Lab Gela Novak MD CHEMISTRY ORDERABLES Performing Organization Address City/State/ZIP Code [place] [address] Magnesium (02/11/2022 12:37 AM EDT) athologist Signature Magnesium 0.75 0.69 - 1.07 [facility] LABORATORY Specimen Anatomical Collection Method Collection Time Receive d Time (Source) Location / / Volume Laterality Blood 02/11/2022 12:37 02/11/2022 AM EDT 12:47 AM EDT Resulting Agency Comment Spec In Lab Gela Novak MD CHEMISTRY ORDERABLES Performing Organization Address City/State/[place] [address] (ABNORMAL) Sodium (02/10/2022 4:47 PM EDT) athologist Signature Sodium 132 (L) 135 - 145 [facility] [place] mmol/L [facility] Specimen Anatomical Collection Method Collection Time Receive d Time (Source) Location / / Volume Laterality Blood 02/10/2022 4:47 PM 5:02 EDT PM EDT Resulting Agency Comment Spec In Lab Parrish Betancourt MD CHEMISTRY ORDERABLES Performing Organization Address City/State/[place] [address] (ABNORMAL) Sodium (02/10/2022 9:05 AM EDT) athologist Signature Sodium 129 (L) 135 - 145 [facility] [place] mmol/L [facility] Specimen Anatomical Collection Method Collection Time Receive d Time (Source) Location / / Volume Laterality Blood Venous Draw / 02/10/2022 9:05 AM 02/11/20 9:36 Unknown EDT AM EDT Resulting Agency Comment Spec In Lab Kaitlyn Rock MD CHEMISTRY ORDERABLES Performing Organization Address City/[facility]/ZIP Code Phon e Number [address] Scan, Peripheral Blood (02/10/2022 12:00 AM EDT) Patholo gist Method Time Signature Plat Estimate Decreased [facility] RBC Morphology Abnormal [facility] Polychromasia Present >5/HPF [facility] Ovalocytes 1-5 /HPF [facility] Angel Cells 1-5 /HPF [facility] Stippled RBCs Present >1/HPF [facility] Dohle Bodies Present [facility] Giant Platelets Less than 1 /HPF [facility] Specimen (Source) Anatomical Collection Method Collection Time Re ceived Time Location / / Volume Laterality Blood 02/10/2022 02/10/2022 12:4 0 AM EDT Resulting Agency Comment Spec In Lab Kaitlyn Rock MD HEMATOLOGY ORDERABLES Performing Organization Address City/State/[place] [address] (ABNORMAL) Differential, Automated (02/10/2022 12:00 AM EDT) [facility] gist Method Time Signature Neutrophils % 52.5 % [facility] Neutr Abs (ANC) 8.47 (H) 1.70 - [facility] [place] 6.10 [facility] x10(3)/[facility] LABORATORY Lymphocytes % 12.2 % [facility] Lymphocytes Abs 2.0 0.9 - 3.2 [facility] [place] x10(3)/[facility] LABORATORY Monocytes % 17.3 % [facility] Monocyte Abs 2.8 (H) 0.3 - 0.9 [facility] [place] x10(3)[facility] LABORATORY Eosinophils % 2.5 % [facility] Eosinophils Abs 0.4 0.0 - 0.4 [facility] [place] x10(3)/[facility] LABORATORY Basophils % 0.4 % [facility] Basophils Abs 0.1 0.0 - 0.1 [facility] x10(3)/[facility] LABORATORY Immature Gran % 15.10 % [facility] LABORATORY Comment: Immature granulocytes(IG's)percentage an d absolute count will include metamyelocytes, myelocytes, and promyelo cytes. Blood smears from CBCs yielding IG's will be scanned manually for concor dance. If this scan disagrees with the automated IG or if promyelocytes are not ed, a manual differential will be performed. Gemini Gran Abs 2.44 (H) 0.00 - 0.04 x10(3)/[facility] LABORATORY Specimen (Source) Anatomical Collection Method Collection Time Re ceived Time Location / / Volume Laterality Blood 02/10/2022 02/10/2022 12:4 0 AM EDT Resulting Agency Comment Spec In Lab Kaitlyn Rock MD HEMATOLOGY ORDERABLES Performing Organization Address City/State/[place] [address] (ABNORMAL) Hemogram (02/10/2022 12:00 AM EDT) Analysis Performed At Patho logist Time Signature WBC 16.1 (H) 4.0 - 9.5 [facility] x[facility](3[facility] LABORATORY RBC 2.96 (L) 4.58 - [facility] MANDO 5.54 [facility] x10(6)/[facility] LABORATORY Hemoglobin 8.6 (L) 13.7 - [facility] 16.5 g/dL [facility] LABORATORY Hematocrit 25.2 (L) 40.5 - [facility] MANDO 48.5 % [facility] LABORATORY MCV 85.1 82.9 - [facility] MANDO 93.1 [facility] LABORATORY MCH 29.1 27.5 - JOS[facility] MANDO 32.1 pg [facility] LABORATORY MCHC 34.1 32.0 - [facility] MANDO 35.7 g/dL [facility] LABORATORY Platelets 121 (L) 145 - 357 [facility] x[facility](3[facility] LABORATORY RDWSD 50.4 (H) 36.0 - [facility] Dsg.nr 45.0 [facility] LABORATORY RDWCV 16.4 (H) 11.4 - [facility] MANDO 13.8 % [facility] LABORATORY MPV 10.6 7.6 - 12.9 [facility] LABORATORY nRBC % Auto 0.0 % [facility] LABORATORY nRBC Abs Auto 0.000 0.000 - [facility] Dsg.nr 0.000 [facility] x10(3)/[facility] LABORATORY Specimen (Source) Anatomical Collection Method Collection Time Re ceived Time Location / / Volume Laterality Blood 02/10/2022 02/10/2022 12:4 0 AM EDT Resulting Agency Comment Spec In Lab Kaitlyn Rock MD HEMATOLOGY ORDERABLES Performing Organization Address City/[facility]/ZIP Code Phon e Number [address] Phosphorus (02/10/2022 12:00 AM EDT) P athologist Signature Phosphorus 3.1 2.5 - 4.[address] mg/dL [facility] LABORATORY Specimen (Source) Anatomical Collection Method Collection Time Re ceived Time Location / / Volume Laterality Blood 02/10/2022 02/10/2022 12:4 0 AM EDT Resulting Agency Comment Spec In Lab Gela Novak MD CHEMISTRY ORDERABLES Performing Organization Address City/[facility]/ZIP Code Phon e Number [address] Magnesium (02/10/2022 12:00 AM EDT) P athologist Signature Magnesium 0.87 0.69 - 1.[address] [address] mmol/L [facility] LABORATORY Specimen (Source) Anatomical Collection Method Collection Time Re ceived Time Location / / Volume Laterality Blood 02/10/2022 02/10/2022 12:4 0 AM EDT Resulting Agency Comment Spec In Lab Gela Novak MD CHEMISTRY ORDERABLES Performing Organization Address City/[facility]/[place] [address] (ABNORMAL) Basic Metabolic Panel (non-fasting) (02/10/2022 12:00 AM EDT) P athologist Signature Glucose Lvl 164 65 - 199 [facility] mg/dL [facility] LABORATORY Comment: Diabetes: >=200 mg/dL plus symp toms BUN 21 (H) 10 - 20 mg/dL [facility] LABORATORY Creatinine 1.89 (H) 0.80 - 1.50 mg/dL [facility] LABORATORY Sodium 130 (L) 135 - 145 mmol/L [facility] LABORATORY Potassium 3.9 3.5 - 5.0 mmol/L [facility] LABORATORY Comment: Please note: ??Patients with WBC >100,00 0 may have falsely elevated Potassium levels. ??For accurate Potassium quantif ication in these patients send serum separator tube (gold top) for subsequent determinations. ??Contact the Clinical Chemistry Laboratory if there are any qu estions. Chloride 96 (L) 98 - 107 mmol/L [facility] LABORATORY CO2 22 22 - 31 mmol/L [facility] LABORATORY Anion Gap 12 5 - 15 mmol/L [facility] LABORATORY Calcium 7.2 (L) 8.5 - 10.5 mg/dL [facility] LABORATORY Estimated GFR 48 (L) >=60 mL/min/1.73 m?? [facility] LABORATORY Comment: This patient's estimated GFR [...] Organization Address City/State/[place] [address] (ABNORMAL) Blood Gas Arterial (NLH) (02/09/2022 5:43 PM EDT) Analysis Performed At Patho logist Time Signature pH Art 7.46 (H) 7.35 - [facility] 7.45 [facility] LABORATORY pCO2 Art 35 35 - 45 [facility] LABORATORY pO2 Art 73 (L) 85 - 104 [facility] LABORATORY HCO3 Art 24.8 20.0 - [facility] 26.0 [facility] mmol/L [facility] LABORATORY BE Art 1.1 -3.0 - 3.0 [facility] mmol/L [facility] LABORATORY Hgb Blood Gas 9.2 (L) 13.7 - [facility] 16.5 g/dL [facility] LABORATORY O2HB Art 94.9 94.0 - [facility] 97.0 % [facility] LABORATORY COHB Art 0.5 % [facility] LABORATORY Comment: Nonsmokers: ??0.5-1.5% COHB Smokers: ??Variable, but usually less th an 10% Toxic: 20 - 30% COHB Lethal: ??Greater than 60% COHB METHB Art 0.3 <=1.5 % [facility] LABORATORY Na Whole Blood 126 (L) 135 - 145 mmol/L [facility] LABORATORY K Whole Blood 4.2 3.5 - 5.0 mmol/L [facility] LABORATORY Comment: Please note: ??Patients with WBC >100,00 0 may have falsely elevated Potassium levels. ??Contact the Clinical Chemistry Laboratory if there are any questions. ICa Whole Blood 1.12 (L) 1.15 - 1.33 mmol/L [facility] LABORATORY Comment: Note: ??Total bilirubin higher than 20 m g/dL may lead to falsely low ionized calcium. CL Whole Blood 100 98 - 107 mmol/L [facility] LABORATORY Gluc Whole Bld 97 65 - 199 mg/dL [facility] LABORATORY Comment: Diabetes: >=200 mg/dL plus symp toms. Lactate WB 1.1 0.5 - 2.2 mmol/L [facility] LABORATORY Specimen Anatomical Collection Method Collection Time Receive d Time (Source) Location / / Volume Laterality Blood Arterial Draw / 02/09/2022 5:43 PM 2021 5:43 Unknown EDT PM EDT Resulting Agency Comment Spec In Lab Kaitlyn Rock MD CHEMISTRY ORDERABLES Performing Organization Address City/State/[place] [address] Phosphorus (02/09/2022 5:35 PM EDT) athologist Signature Phosphorus 3.2 2.5 - 4.5 [facility] mg/dL [facility] LABORATORY Specimen Anatomical Collection Method Collection Time Receive d Time (Source) Location / / Volume Laterality Blood 02/09/2022 5:35 PM 2 5:44 EDT PM EDT Resulting Agency Comment Spec In Lab Parrish Betancourt MD CHEMISTRY ORDERABLES Performing Organization Address City/[facility]/[place] [address] (ABNORMAL) Electrolytes panel (02/09/2022 5:35 PM EDT) athologist Signature Sodium 132 (L) 135 - 145 [facility] mmol/L [facility] LABORATORY Potassium 4.3 3.5 - 5.0 [facility] mmol/L [facility] LABORATORY Comment: Please note: ??Patients with WBC >100,00 0 may have falsely elevated Potassium levels. ??For accurate Potassium quantif ication in these patients send serum separator tube (gold top) for subsequent determinations. ??Contact the Clinical Chemistry Laboratory if there are any qu estions. Chloride 100 98 - 107 mmol/L [facility] LABORATORY CO2 21 (L) 22 - 31 mmol/L [facility] LABORATORY Anion Gap 11 5 - 15 mmol/L [facility] LABORATORY Specimen Anatomical Collection Method Collection Time Receive d Time (Source) Location / / Volume Laterality Blood 02/09/2022 5:35 PM 2 5:44 EDT PM EDT Resulting Agency Comment Spec In Lab Parrish Betancourt MD CHEMISTRY ORDERABLES Performing Organization Address City/State/[place] [address] (ABNORMAL) Sodium (02/09/2022 5:35 PM EDT) athologist Signature Sodium 132 (L) 135 - 145 [facility] mmol/L [facility] LABORATORY Specimen Anatomical Collection Method Collection Time Receive d Time (Source) Location / / Volume Laterality Blood 02/09/2022 5:35 PM 2 5:44 EDT PM EDT Resulting Agency Comment Spec In Lab Parrish Betancourt MD CHEMISTRY ORDERABLES Performing Organization Address City/[facility]/[place] [address] Anaerobic Culture (02/09/2022 4:26 PM EDT) [facility] Method Time Signature Anaerobic No anaerobic [facility] Culture organisms [facility] LABORATORY Specimen Anatomical Collection Method Collection Time Receive d Time (Source) Location / / Volume Laterality Thigh 02/09/2022 4:26 PM 5:23 EDT PM EDT Comment: Left thigh Resulting Agency Comment Spec In Lab Jeanette Chatterjee MD MICROBIOLOGY - GENERAL ORDER JT Performing Organization Address City/[facility] Phon e Number [address] (ABNORMAL) Tissue culture (02/09/2022 4:26 PM EDT) Component Value Ref Test Analysis Performed At [facility] Range Method Time Signature Tissue Few Pseudomonas aeruginosa MAR Y Culture Few Serratia marcescens [facility] Susceptibilities previously reported [facility] LABORATORY Gram Stain Many Neutrophils seen [facility] Moderate Gram Negative Rods seen [place] Results called to and read back by Lilibeth Dial RN [facility] 02/09/22 18:20:09 [facility] ( LABORATORY Organism Pseudomonas [facility] aeruginosa (A) [facility] LABORATORY Organism Serratia marcescens [facility] (A) [facility] LABORATORY Organism Gram Negative Rods [facility] (A) [facility] LABORATORY Specimen Anatomical Collection Method Collection Time Receive d Time (Source) Location / / Volume Laterality Thigh 02/09/2022 4:26 PM 5:23 EDT PM EDT Comment: Left thigh Resulting Agency Comment Spec In Lab Jeanette Chatterjee MD MICROBIOLOGY - GENERAL ORDER JT Performing Organization Address City/[facility]/[place] [address] (ABNORMAL) Sodium (02/09/2022 12:29 PM EDT) athologist Signature Sodium 132 (L) 135 - 145 [facility] mmol/L [facility] LABORATORY Specimen Anatomical Collection Method Collection Time Receive d Time (Source) Location / / Volume Laterality Blood 02/09/2022 12:29 02/09/2022 PM EDT 12:29 PM EDT Resulting Agency Comment Spec In Lab Parrish Betancoutr MD CHEMISTRY ORDERABLES Performing Organization Address City/State/[place] [address] (ABNORMAL) Blood Gas Arterial (NLH) (02/09/2022 12:20 PM EDT) Analysis Performed At Patho logist Time Signature pH Art 7.47 (H) 7.35 - [facility] 7.45 [facility] LABORATORY pCO2 Art 33 (L) 35 - 45 [facility] mmHg [facility] LABORATORY pO2 Art 105 (H) 85 - 104 [facility] LABORATORY HCO3 Art 23.6 20.0 - [facility] 26.0 [facility] mmol/L [facility] LABORATORY BE Art -0.1 -3.0 - 3.0 [facility] mmol/L [facility] LABORATORY Hgb Blood Gas 9.6 (L) 13.7 - [facility] 16.5 g/dL [facility] LABORATORY O2HB Art 97.2 (H) 94.0 - [facility] 97.0 % [facility] LABORATORY COHB Art 0.8 % [facility] LABORATORY Comment: Nonsmokers: ??0.5-1.5% COHB Smokers: ??Variable, but usually less th an 10% Toxic: 20 - 30% COHB Lethal: ??Greater than 60% COHB METHB Art 0.3 <=1.5 % [facility] LABORATORY Na Whole Blood 126 (L) 135 - 145 mmol/L [facility] LABORATORY K Whole Blood 4.2 3.5 - 5.0 mmol/L [facility] LABORATORY Comment: Please note: ??Patients with WBC >100,00 0 may have falsely elevated Potassium levels. ??Contact the Clinical Chemistry Laboratory if there are any questions. ICa Whole Blood 1.16 1.15 - 1.33 mmol/L [facility] LABORATORY Comment: Note: ??Total bilirubin higher than 20 m g/dL may lead to falsely low ionized calcium. CL Whole Blood 99 98 - 107 mmol/L [facility] LABORATORY Gluc Whole Bld 97 65 - 199 mg/dL [facility] LABORATORY Comment: Diabetes: >=200 mg/dL plus symp toms. Lactate WB 1.1 0.5 - 2.2 mmol/L [facility] LABORATORY FIO2 Art 21 % [facility] LABORATORY PF Ratio Art [address] [facility] LABORATORY Temp Art 36.6 Celsius [facility] LABORATORY Specimen Anatomical Collection Method Collection Time Receive d Time (Source) Location / / Volume Laterality Blood Arterial Draw / 02/09/2022 12:20 02/10/20 22 Unknown PM EDT 12:27 PM EDT Resulting Agency Comment Spec In Lab Kaitlyn Rock MD CHEMISTRY ORDERABLES Performing Organization Address City/[facility]/ZIP [facility] Phon e Number [address] Phosphorus (02/09/2022 10:08 AM EDT) P athologist Signature Phosphorus 3.1 2.5 - 4.[address] [facility] [address] mg/dL [facility] LABORATORY Specimen Anatomical Collection Method Collection Time Receive d Time (Source) Location / / Volume Laterality Blood 02/09/2022 10:08 02/09/2022 AM EDT 10:34 AM EDT Resulting Agency Comment Spec In Lab Parrish Betancourt MD CHEMISTRY ORDERABLES Performing Organization Address City/[facility]/[place] [address] Phosphorus (02/09/2022 6:25 AM EDT) P athologist Signature Phosphorus 2.6 2.5 - 4.[address] [address] mg/dL [facility] LABORATORY Specimen Anatomical Collection Method Collection Time Receive d Time (Source) Location / / Volume Laterality Blood 02/09/2022 6:25 AM 6:48 EDT AM EDT Resulting Agency Comment Spec In Lab Parrish Betancourt MD CHEMISTRY ORDERABLES Performing Organization Address City/[facility]/ZIP Code Phon e Number [address] (ABNORMAL) Sodium (02/09/2022 6:25 AM EDT) P athologist Signature Sodium 130 (L) 135 - 145 [facility] mmol/L [facility] LABORATORY Specimen Anatomical Collection Method Collection Time Receive d Time (Source) Location / / Volume Laterality Blood 02/09/2022 6:25 AM 2 6:48 EDT AM EDT Resulting Agency Comment Spec In Lab Parrish Betancourt MD CHEMISTRY ORDERABLES Performing Organization Address City/[facility]/ZIP Code Phon e Number [address] Transfuse RBC (02/09/2022 5:45 AM EDT) Parrish Betancoutr MD NURSING TREATMENT ORDERABLES - BLOOD ADMIN Transfuse RBC (02/09/2022 5:45 AM EDT) Parrish Betancourt MD NURSING TREATMENT ORDERABLES - BLOOD ADMIN Type and Screen Validity (02/09/2022 2:30 AM EDT) [facility] Method Time Signature T&S only valid [facility] LABORATORY Comment: This Type and Screen result is only valid at the [facility] Specimen Anatomical Collection Method Collection Time Receive d Time (Source) Location / / Volume Laterality Blood 02/09/2022 2:30 AM 2 2:47 EDT AM EDT Resulting Agency Comment Spec In Lab Thomas Daniel MD BLOOD BANK ORDERABLES Performing Organization Address City/[facility]/ZIP Code Phon e Number [address] ABORH Recheck Status (02/09/2022 2:30 AM EDT) [facility] [employer] Method Time Signature ABORH Type Completed [facility] LABORATORY Specimen Anatomical Collection Method Collection Time Receive d Time (Source) Location / / Volume Laterality Blood 02/09/2022 2:30 AM 2 2:47 EDT AM EDT Resulting Agency Comment Spec In Lab Thomas Daniel MD BLOOD BANK ORDERABLES Performing Organization Address City/[facility]/[place] [address] Antibody screen (02/09/2022 2:30 AM EDT) Patholo gist Method Time Signature Ab Screen Negative [facility] LABORATORY Expires at 02/12/2022 JOS[facility] MANDO [id number] on: [facility] LABORATORY Specimen Anatomical Collection Method Collection Time Receive d Time (Source) Location / / Volume Laterality Blood 02/09/2022 2:30 AM 2 2:47 EDT AM EDT Resulting Agency Comment Spec In Lab Thomas Daniel MD BLOOD BANK ORDERABLES Performing Organization Address City/State/ZIP Code Phon e Number [address] ABO/Rh Typing (02/09/2022 2:30 AM EDT) P athologist Signature ABORh Type A Pos [facility] LABORATORY Specimen Anatomical Collection Method Collection Time Receive d Time (Source) Location / / Volume Laterality Blood 02/09/2022 2:30 AM 2 2:47 EDT AM EDT Resulting Agency Comment Spec In Lab Thomas Daniel MD BLOOD BANK ORDERABLES Performing Organization Address City/State/ZIP Code Phon e Number [address] Prepare RBC (02/09/2022 2:20 AM EDT) P athologist Signature Dispensed? Yes [facility] LABORATORY Specimen Anatomical Collection Method Collection Time Receive d Time (Source) Location / / Volume Laterality Blood 02/09/2022 2:20 AM 2 2:21 EDT AM EDT Parrish Betancourt MD BLOOD BANK ORDERABLES Performing Organization Address City/State/[place] [address] (ABNORMAL) BLOOD GAS 2 ARTERIAL (02/09/2022 1:02 AM EDT) Analysis Performed At Patho logist Time Signature pH Art 7.49 (H) 7.35 - [facility] 7.45 [facility] LABORATORY pCO2 Art 30 (L) 35 - 45 [facility] LABORATORY pO2 Art 92 85 - 104 [facility] LABORATORY HCO3 Art 22.5 20.0 - [facility] 26.0 [facility] mmol/L [facility] LABORATORY BE Art -0.9 -3.0 - 3.0 [facility] mmol/L [facility] LABORATORY Hgb Blood Gas 8.1 (L) 13.7 - [facility] 16.5 g/dL [facility] O2HB Art 95.1 94.0 - [facility] 97.0 % [facility] LABORATORY COHB Art 0.3 % [facility] LABORATORY Comment: Nonsmokers: 0.5-1.5% COHB Smokers: Variable, but usually less than 10% Toxic: 20-30% COHB Lethal: Greater than 60% COHB METHB Art 1.0 <=1.5 % [facility] LABORATORY Na Whole Blood 122 (L) 135 - 145 mmol/L [facility] LABORATORY K Whole Blood 3.9 3.5 - 5.0 mmol/L [facility] LABORATORY Comment: Please note: Patients with WBC >100,000 may have falsely elevated Potassium levels. Contact the Clinical Chemistry L aboratory if there are any questions. ICa Whole Blood 1.18 1.15 - 1.33 mmol/L [facility] LABORATORY Comment: Note: ??Total bilirubin higher than 20 m g/dL may lead to falsely low ionized calcium. CL Whole Blood 98 98 - 107 mmol/L [facility] LABORATORY Gluc Whole Bld 125 65 - 199 mg/dL [facility] LABORATORY Comment: Diabetes: >=200 mg/dL plus symp toms. Lactate WB 2.2 0.5 - 2.2 mmol/L [facility] LABORATORY Specimen Anatomical Collection Method Collection Time Receive d Time (Source) Location / / Volume Laterality Blood 02/09/2022 1:02 AM 2 1:02 EDT AM EDT Parrish Betancourt MD CHEMISTRY ORDERABLES Performing Organization Address City/State/[place] [address] Scan, Peripheral Blood (02/09/2022 12:55 AM EDT) [facility] Method Time Signature Plat Estimate Decreased [facility] LABORATORY RBC Morphology Abnormal [facility] LABORATORY Polychromasia Present >5/HPF [facility] LABORATORY Ovalocytes 1-5 /HPF [facility] LABORATORY [place] Cells 1-5 /HPF [facility] LABORATORY Stippled RBCs Present >1/HPF [facility] LABORATORY Pappenheimer Bdy Present >1/HPF [facility] LABORATORY Dohle Bodies Present [facility] LABORATORY Giant Platelets Less than 1 /HPF [facility] LABORATORY Specimen Anatomical Collection Method Collection Time Receive d Time (Source) Location / / Volume Laterality Blood 02/09/2022 12:55 02/09/2022 1:07 AM EDT AM EDT Resulting Agency Comment Spec In Lab Kaitlyn Rock MD HEMATOLOGY ORDERABLES Performing Organization Address City/State/[place] [address] (ABNORMAL) Differential, Automated (02/09/2022 12:55 AM EDT) [facility] [employer] Method Time Signature Neutrophils % 57.4 % [facility] LABORATORY Neutr Abs (ANC) 7.26 (H) 1.70 - [facility] 6.10 [facility] x10(3)/[facility] LABORATORY Lymphocytes % 10.1 % [facility] LABORATORY Lymphocytes Abs 1.3 0.9 - 3.2 [facility] x10(3)/[facility] LABORATORY Monocytes % 17.7 % [facility] LABORATORY Monocyte Abs 2.2 (H) 0.3 - 0.9 [facility] x10(3)/[facility] LABORATORY Eosinophils % 1.3 % [facility] LABORATORY Eosinophils Abs 0.2 0.0 - 0.4 [facility] x10(3)/[facility] LABORATORY Basophils % 0.4 % [facility] LABORATORY Basophils Abs 0.0 0.0 - 0.1 [facility] x10(3)/[facility] LABORATORY Immature Gran % 13.10 % [facility] LABORATORY Comment: Immature granulocytes(IG's)percentage an d absolute count will include metamyelocytes, myelocytes, and promyelo cytes. Blood smears from CBCs yielding IG's will be scanned manually for concor dance. If this scan disagrees with the automated IG or if promyelocytes are not ed, a manual differential will be performed. Gemini Gran Abs 1.65 (H) 0.00 - 0.04 x10(3)/[facility] LABORATORY Specimen Anatomical Collection Method Collection Time Receive d Time (Source) Location / / Volume Laterality Blood 02/09/2022 12:55 02/09/2022 1:07 AM EDT AM EDT Resulting Agency Comment Spec In Lab Kaitlyn Rock MD HEMATOLOGY ORDERABLES Performing Organization Address City/State/ZIP Code Phon e Number [place] [id number]OS[address] LAB[address]ORY Drive (ABNORMAL) Hemogram (02/09/2022 12:55 AM EDT) [facility] gist Method Time Signature WBC 12.6 (H) 4.0 - 9.5 [facility] x[facility](3[facility] LABORATORY RBC 2.46 (L) 4.58 - [facility] [place] 5.54 [facility] x10(6)/[facility] LABORATORY Hemoglobin 7.1 (L) 13.7 - [facility] 16.5 g/dL [facility] LABORATORY Hematocrit 20.7 (L) 40.5 - JOSH MANDO 48.5 % [facility] LABORATORY MCV 84.1 82.9 - [place] MANDO 93.1 [facility] LABORATORY MCH 28.9 27.5 - JOSH MANDO 32.1 pg [facility] LABORATORY MCHC 34.3 32.0 - [facility] 35.7 g/dL [facility] LABORATORY Platelets 97 (L) 145 - 357 [facility] x[facility](3[facility] LABORATORY RDWSD 49.4 (H) 36.0 - JOSH MANDO 45.0 [facility] LABORATORY RDWCV 17.8 (H) 11.4 - [facility] [place] 13.8 % [facility] LABORATORY MPV 9.8 7.6 - 12.9 [facility] LABORATORY nRBC % Auto 0.2 % [facility] LABORATORY nRBC Abs Auto 0.020 (H) 0.000 - [facility] [place] 0.000 [facility] x10(3)/[facility] LABORATORY Specimen Anatomical Collection Method Collection Time Receive d Time (Source) Location / / Volume Laterality Blood 02/09/2022 12:55 02/09/2022 1:07 AM EDT AM EDT Resulting Agency Comment Spec In Lab Kaitlyn Rock MD HEMATOLOGY ORDERABLES Performing Organization Address City/State/[place] [address] (ABNORMAL) Basic Metabolic Panel (non-fasting) (02/09/2022 12:55 AM EDT) P athologist Signature Glucose Lvl 128 65 - 199 [facility] [place] mg/dL [facility] LABORATORY Comment: Diabetes: >=200 mg/dL plus symp toms BUN 26 (H) 10 - 20 mg/dL [facility] LABORATORY Creatinine 2.46 (H) 0.80 - 1.50 mg/dL [facility] LABORATORY Sodium 126 (L) 135 - 145 mmol/L [facility] LABORATORY Potassium 4.2 3.5 - 5.0 mmol/L [facility] LABORATORY Comment: Please note: ??Patients with WBC >100,00 0 may have falsely elevated Potassium levels. ??For accurate Potassium quantif ication in these patients send serum separator tube (gold top) for subsequent determinations. ??Contact the Clinical Chemistry Laboratory if there are any qu estions. Chloride 95 (L) 98 - 107 mmol/L [facility] LABORATORY CO2 22 22 - 31 mmol/L [facility] LABORATORY Anion Gap 9 5 - 15 mmol/L [facility] LABORATORY Calcium 7.7 (L) 8.5 - 10.5 mg/dL [facility] LABORATORY Estimated GFR 35 (L) >=60 mL/min/1.73 m?? [facility] LABORATORY Comment: This patient's estimated GFR was calcula karina using the 2021 CKD-EPI equation. The estimated GFR can vary [...] Novak MD CHEMISTRY ORDERABLES Performing Organization Address City/[facility]/ZIP Code Phon e Number [address] (ABNORMAL) Phosphorus (02/09/2022 12:55 AM EDT) P athologist Signature Phosphorus 2.3 (L) 2.5 - 4.5 [facility] [place] mg/dL [facility] LABORATORY Specimen Anatomical Collection Method Collection Time Receive d Time (Source) Location / / Volume Laterality Blood 02/09/2022 12:55 02/09/2022 1:07 AM EDT AM EDT Resulting Agency Comment Spec In Lab Gela Novak MD CHEMISTRY ORDERABLES Performing Organization Address City/[facility]/[place] [address] Magnesium (02/09/2022 12:55 AM EDT) P athologist Signature Magnesium 0.94 0.69 - 1.07 [facility] [place] mmol/L [facility] LABORATORY Specimen Anatomical Collection Method Collection Time Receive d Time (Source) Location / / Volume Laterality Blood 02/09/2022 12:55 02/09/2022 1:07 AM EDT AM EDT Resulting Agency Comment Spec In Lab Gela Novak MD CHEMISTRY ORDERABLES Performing Organization Address City/[facility]/[place] [address] Scan, Peripheral Blood (02/08/2022 6:00 PM EDT) [facility] Method Time Signature Plat Estimate Decreased [facility] LABORATORY RBC Morphology Abnormal [facility] LABORATORY Macrocytes 1-5 /HPF [facility] Microcytes 1-5 /HPF [facility] LABORATORY Polychromasia Present >5/HPF [facility] LABORATORY Ovalocytes 1-5 /HPF [facility] [place] Cells 1-5 /HPF [facility] LABORATORY Stippled RBCs Present >1/HPF [facility] LABORATORY Pappenheimer Bdy Present >1/HPF [facility] LABORATORY Dohle Bodies Present [facility] Giant Platelets Less than 1 /HPF [facility] LABORATORY Specimen Anatomical Collection Method Collection Time Receive d Time (Source) Location / / Volume Laterality Blood 02/08/2022 6:00 PM 6:21 EDT PM EDT Resulting Agency Comment Spec In Lab Rogers Solano APRN HEMATOLOGY ORDERABLES Performing Organization Address City/State/[place] [address] (ABNORMAL) Differential, Automated (02/08/2022 6:00 PM EDT) [facility] Method Time Signature Neutrophils % 64.6 % [facility] LABORATORY Neutr Abs (ANC) 7.81 (H) 1.70 - [facility] [place] 6.10 [facility] x10(3)/[facility] LABORATORY Lymphocytes % 7.2 % [facility] LABORATORY Lymphocytes Abs 0.9 0.9 - 3.2 [facility] [place] x10(3)/[facility] LABORATORY Monocytes % 14.2 % [facility] LABORATORY Monocyte Abs 1.7 (H) 0.3 - 0.9 [facility] x10(3)/[facility] LABORATORY Eosinophils % 1.3 % [facility] LABORATORY Eosinophils Abs 0.2 0.0 - 0.4 [facility] x10(3)/[facility] LABORATORY Basophils % 0.5 % [facility] LABORATORY Basophils Abs 0.1 0.0 - 0.1 [facility] x10(3)/[facility] LABORATORY Immature Gran % 12.20 % [facility] LABORATORY Comment: Immature granulocytes(IG's)percentage an d absolute count will include metamyelocytes, myelocytes, and promyelo cytes. Blood smears from CBCs yielding IG's will be scanned manually for concor dance. If this scan disagrees with the automated IG or if promyelocytes are not ed, a manual differential will be performed. Gemini Gran Abs 1.48 (H) 0.00 - 0.04 x10(3)/[facility] LABORATORY Specimen Anatomical Collection Method Collection Time Receive d Time (Source) Location / / Volume Laterality Blood 02/08/2022 6:00 PM 6:21 EDT PM EDT Resulting Agency Comment Spec In Lab Rogers Solano APRN HEMATOLOGY ORDERABLES Performing Organization Address City/State/[place] [address] (ABNORMAL) Hemogram (02/08/2022 6:00 PM EDT) [facility] gist Method Time Signature WBC 12.1 (H) 4.0 - 9.5 [facility] [place] x10(3)/[facility] LABORATORY RBC 2.57 (L) 4.58 - [facility] 5.54 [facility] x10(6)/[facility] LABORATORY Hemoglobin 7.5 (L) 13.7 - [facility] 16.5 g/dL [facility] LABORATORY Hematocrit 21.6 (L) 40.5 - [facility] 48.5 % [facility] LABORATORY MCV 84.0 82.9 - [facility] 93.1 [facility] LABORATORY MCH 29.2 27.5 - [facility] 32.1 pg [facility] LABORATORY MCHC 34.7 32.0 - [facility] 35.7 g/dL [facility] LABORATORY Platelets 80 (L) 145 - 357 [facility] [place] x10(3)/[facility] LABORATORY RDWSD 48.9 (H) 36.0 - [facility] 45.0 [facility] LABORATORY RDWCV 17.9 (H) 11.4 - [facility] [place] 13.8 % [facility] MPV 10.1 7.6 - 12.9 [facility] LABORATORY nRBC % Auto 0.2 % [facility] LABORATORY nRBC Abs Auto 0.020 (H) 0.000 - [facility] [place] 0.000 [facility] x10(3)/[facility] LABORATORY Specimen Anatomical Collection Method Collection Time Receive d Time (Source) Location / / Volume Laterality Blood 02/08/2022 6:00 PM 6:21 EDT PM EDT Resulting Agency Comment Spec In Lab Rogers Solano APRN HEMATOLOGY ORDERABLES Performing Organization Address City/State/[place] [address] (ABNORMAL) Blood Gas Arterial (NLH) (02/08/2022 6:00 PM EDT) Analysis Performed At Patho logist Time Signature pH Art 7.46 (H) 7.35 - [facility] [place] 7.45 [facility] LABORATORY pCO2 Art 32 (L) 35 - 45 [facility] LABORATORY pO2 Art 89 85 - 104 [facility] LABORATORY HCO3 Art 22.4 20.0 - [facility] [place] 26.0 [facility] mmol/[facility] LABORATORY BE Art -1.4 -3.0 - 3.0 [facility] [place] mmol/L [facility] LABORATORY Hgb Blood Gas 8.0 (L) 13.7 - [facility] [place] 16.5 g/dL [facility] O2HB Art 95.8 94.0 - [facility] [place] 97.0 % [facility] LABORATORY COHB Art 0.8 % [facility] LABORATORY Comment: Nonsmokers: ??0.5-1.5% COHB Smokers: ??Variable, but usually less th an 10% Toxic: 20 - 30% COHB Lethal: ??Greater than 60% COHB METHB Art 0.0 <=1.5 % [facility] LABORATORY Na Whole Blood 124 (L) 135 - 145 mmol/L [facility] LABORATORY K Whole Blood 4.7 3.5 - 5.0 mmol/L [facility] LABORATORY Comment: Please note: ??Patients with WBC >100,00 0 may have falsely elevated Potassium levels. ??Contact the Clinical Chemistry Laboratory if there are any questions. ICa Whole Blood 1.21 1.15 - 1.33 mmol/L [facility] LABORATORY Comment: Note: ??Total bilirubin higher than 20 m g/dL may lead to falsely low ionized calcium. CL Whole Blood 99 98 - 107 mmol/L [facility] LABORATORY Gluc Whole Bld 84 65 - 199 mg/dL [facility] LABORATORY Comment: Diabetes: >=200 mg/dL plus symp toms. Lactate WB 1.2 0.5 - 2.2 mmol/L [facility] LABORATORY Specimen Anatomical Collection Method Collection Time Receive d Time (Source) Location / / Volume Laterality Blood Arterial Draw / 02/08/2022 6:00 PM 2021 6:18 Unknown EDT PM EDT Resulting Agency Comment Spec In Lab Kaitlyn Rock MD CHEMISTRY ORDERABLES Performing Organization Address City/State/[place] [address] (ABNORMAL) Sodium (02/08/2022 6:00 PM EDT) athologist Signature Sodium 129 (L) 135 - 145 [facility] [place] mmol/L [facility] LABORATORY Specimen Anatomical Collection Method Collection Time Receive d Time (Source) Location / / Volume Laterality Blood 02/08/2022 6:00 PM 6:21 EDT PM EDT Resulting Agency Comment Spec In Lab Parrish Betancourt MD CHEMISTRY ORDERABLES Performing Organization Address City/State/[place] [address] POCT Glucose (02/08/2022 5:56 PM EDT) P athologist Signature POC Glucose 92 65 - 199 [facility] [place] mg/dL [facility] LABORATORY Comment: Supplemental ranges: <140 mg/dL before meals <180 mg/dL all other times of the day Specimen Anatomical Collection Method Collection Time Receive d Time (Source) Location / / Volume Laterality Blood 02/08/2022 5:56 PM 5:56 EDT PM EDT Parrish Betancourt MD POINT OF CARE TEST ORDERABLE S Performing Organization Address City/[facility]/[place] [address] Anaerobic Culture (02/08/2022 4:13 PM EDT) [facility] [employer] Method Time Signature Anaerobic No anaerobic [facility] [place] Culture organisms [facility] LABORATORY Specimen Anatomical Collection Method Collection Time Receive d Time (Source) Location / / Volume Laterality Deep Wound STRUCTURE OF LEFT 02/08/2022 4:13 PM 01/29 4:33 THIGH / Unknown EDT PM EDT Comment: Left thigh #2 Resulting Agency Comment Spec In Lab Jeanette Chatterjee MD MICROBIOLOGY - GENERAL ORDER JT Performing Organization Address City/[facility]/[place] [address] (ABNORMAL) Abscess/Wound Aspirate Culture (02/08/2022 4:13 PM EDT) [email or web address] Method Time Signature Abscess/Wound Many Pseudomonas aeruginosa [facility] Aspirate Many Serratia marcescens [facility] () [facility] LABORATORY Gram Stain Many Neutrophils seen JOSH Many Gram Negative Rods seen [facility] () [facility] LABORATORY Organism Pseudomonas JOSH aeruginosa (A) [facility] LABORATORY Organism Serratia JOSH marcescens (A) [facility] LABORATORY Organism Gram Negative JOSH Rods (A) [facility] LABORATORY Specimen Anatomical Collection Method Collection Time [...] - GENERAL ORDER JT Performing Organization Address City/[facility]/[place] [address] Anaerobic Culture (02/08/2022 4:13 PM EDT) [facility] Method Time Signature Anaerobic No anaerobic [facility] [place] Culture organisms [facility] LABORATORY Specimen Anatomical Collection Method Collection Time Receive d Time (Source) Location / / Volume Laterality Deep Wound STRUCTURE OF LEFT 02/08/2022 4:13 PM 01/29 4:32 THIGH / Unknown EDT PM EDT Comment: Left thigh #1 Resulting Agency Comment Spec In Lab Jeanette Chatterjee MD MICROBIOLOGY - GENERAL ORDER JT Performing Organization Address City/[facility]/ZIP Code Phon e [place] [facility] [place] [address] (ABNORMAL) Abscess/Wound Aspirate Culture (02/08/2022 4:13 PM EDT) Component Value Ref Test Analysis Performed At [facility] gist Range Method Time Signature Abscess/Woun Many Pseudomonas aeruginosa JOSH d Aspirate Many Serratia marcescens [facility] Culture Susceptibilities previously reported [facility] LABORATORY Gram Stain Many Neutrophils seen JOSH Moderate Gram Negative Rods seen [facility] LABORATORY Organism Pseudomonas JOSH aeruginosa (A) [facility] LABORATORY Organism Serratia marcescens JOSH (A) [facility] LABORATORY Specimen Anatomical Collection Method Collection Time Receive d Time (Source) Location / / Volume Laterality Deep Wound STRUCTURE OF LEFT 02/08/2022 4:13 PM 01/29 4:32 THIGH / Unknown EDT PM EDT Comment: Left thigh #1 Resulting Agency Comment Spec In Lab Jeanette Chatterjee MD MICROBIOLOGY - GENERAL ORDER JT Performing Organization Address City/State/ZIP Code Phon e Number [address] POCT Glucose (02/08/2022 12:09 PM EDT) athologist Signature POC Glucose 126 65 - 199 [facility] mg/dL [facility] LABORATORY Comment: Supplemental ranges: <140 mg/dL before meals <180 mg/dL all other times of the day Specimen Anatomical Collection Method Collection Time Receive d Time (Source) Location / / Volume Laterality Blood 02/08/2022 12:09 02/08/2022 PM EDT 12:09 PM EDT Parrish Betancourt MD POINT OF CARE TEST ORDERABLE S Performing Organization Address City/State/[place] [address] POCT Glucose (02/08/2022 12:09 PM EDT) athologist Signature POC Glucose 100 65 - 199 [facility] mg/dL [facility] LABORATORY Comment: Supplemental ranges: <140 mg/dL before meals <180 mg/dL all other times of the day Specimen Anatomical Collection Method Collection Time Receive d Time (Source) Location / / Volume Laterality Blood 02/08/2022 12:09 02/08/2022 PM EDT 12:09 PM EDT Parrish Betancourt MD POINT OF CARE TEST ORDERABLE S Performing Organization Address City/State/[place] [address] (ABNORMAL) Blood Gas Arterial (NL[facility]) (02/08/2022 12:00 PM EDT) Analysis Performed At Patho logist Time Signature pH Art 7.47 (H) 7.35 - [facility] [place] 7.45 [facility] LABORATORY pCO2 Art 32 (L) 35 - 45 [facility] [place] mmHg [facility] LABORATORY pO2 Art 129 (H) 85 - 104 [facility] LABORATORY HCO3 Art 22.9 20.0 - [facility] [place] 26.0 [facility] mmol/L [facility] LABORATORY BE Art -0.7 -3.0 - 3.0 [facility] [place] mmol/L [facility] LABORATORY Hgb Blood Gas 8.1 (L) 13.7 - [facility] 16.5 g/dL [facility] LABORATORY O2HB Art 97.5 (H) 94.0 - [facility] [place] 97.0 % [facility] LABORATORY COHB Art 0.9 % [facility] LABORATORY Comment: Nonsmokers: ??0.5-1.5% COHB Smokers: ??Variable, but usually less th an 10% Toxic: 20 - 30% COHB Lethal: ??Greater than 60% COHB METHB Art 0.0 <=1.5 % [facility] LABORATORY Na Whole Blood 123 (L) 135 - 145 mmol/L [facility] LABORATORY K Whole Blood 4.7 3.5 - 5.0 mmol/L [facility] LABORATORY Comment: Please note: ??Patients with WBC >100,00 0 may have falsely elevated Potassium levels. ??Contact the Clinical Chemistry Laboratory if there are any questions. ICa Whole Blood 1.26 1.15 - 1.33 mmol/L [facility] LABORATORY Comment: Note: ??Total bilirubin higher than 20 m g/dL may lead to falsely low ionized calcium. CL Whole Blood 98 98 - 107 mmol/L [facility] LABORATORY Gluc Whole Bld 92 65 - 199 mg/dL [facility] LABORATORY Comment: Diabetes: >=200 mg/dL plus symp toms. Lactate WB 0.9 0.5 - 2.2 mmol/L [facility] LABORATORY Specimen Anatomical Collection Method Collection Time Receive d Time (Source) Location / / Volume Laterality Blood Arterial Draw / 02/08/2022 12:00 02/09/20 22 Unknown PM EDT 12:21 PM EDT Resulting Agency Comment Spec In Lab Angelina Reynoso MD CHEMISTRY ORDERABLES Performing Organization Address City/State/[place] [address] (ABNORMAL) Sodium (02/08/2022 12:00 PM EDT) P athologist Signature Sodium 127 (L) 135 - 145 [facility] [place] mmol/L [facility] LABORATORY Specimen Anatomical Collection Method Collection Time Receive d Time (Source) Location / / Volume Laterality Blood 02/08/2022 12:00 02/08/2022 PM EDT 12:23 PM EDT Resulting Agency Comment Spec In Lab Parrish Betancourt MD CHEMISTRY ORDERABLES Performing Organization Address City/[facility]/[place] [address] (ABNORMAL) Calcium Ionized Whole Blood, [place] (02/08/2022 11:00 AM EDT) Analysis Performed At Patho logist Time Signature pH Honorio 7.46 (H) 7.32 - [facility] [place] 7.42 [facility] LABORATORY ICa Whole 1.26 1.15 - [facility] Blood 1.33 [facility] mmol/[facility] LABORATORY Comment: Note: ??Total bilirubin higher than 20 m g/dL may lead to falsely low ionized calcium. Specimen Anatomical Collection Method Collection Time Receive d Time (Source) Location / / Volume Laterality Blood ARTERIAL LINE / 02/08/2022 11:00 02/09/20 22 Unknown AM EDT 11:09 AM EDT Resulting Agency Comment Spec In Lab Parrish Betancourt MD CHEMISTRY ORDERABLES Performing Organization Address City/[facility]/ZIP Code Phon e Number [address] POCT Glucose (02/08/2022 9:56 AM EDT) athologist Signature POC Glucose 96 65 - 199 [facility] mg/dL [facility] LABORATORY Comment: Supplemental ranges: <140 mg/dL before meals <180 mg/dL all other times of the day Specimen Anatomical Collection Method Collection Time Receive d Time (Source) Location / / Volume Laterality Blood 02/08/2022 9:56 AM 9:56 EDT AM EDT Parrish Betancourt MD POINT OF CARE TEST ORDERABLE S Performing Organization Address City/State/[place] [address] (ABNORMAL) BLOOD GAS 2 ARTERIAL (02/08/2022 8:15 AM EDT) athologist Signature pH Art 7.44 7.35 - [facility] [place] 7.45 [facility] LABORATORY pCO2 Art 36 35 - 45 [facility] LABORATORY pO2 Art 108 (H) 85 - 104 [facility] LABORATORY HCO3 Art 23.8 20.0 - [facility] [place] 26.0 [facility] mmol/L [facility] LABORATORY BE Art -0.3 -3.0 - 3.0 [facility] mmol/L [facility] LABORATORY Hgb Blood Gas 7.8 (L) 13.7 - [facility] 16.5 g/dL [facility] LABORATORY O2HB Art 95.7 94.0 - [facility] 97.0 % [facility] LABORATORY COHB Art 0.1 % [facility] LABORATORY Comment: Nonsmokers: 0.5-1.5% COHB Smokers: Variable, but usually less than 10% Toxic: 20-30% COHB Lethal: Greater than 60% COHB METHB Art 1.3 <=1.5 % [facility] LABORATORY Na Whole Blood 122 (L) 135 - 145 mmol/L [facility] LABORATORY K Whole Blood 4.6 3.5 - 5.0 mmol/L [facility] LABORATORY Comment: Please note: Patients with WBC >100,000 may have falsely elevated Potassium levels. Contact the Clinical Chemistry L aboratory if there are any questions. ICa Whole Blood 1.27 1.15 - 1.33 mmol/L [facility] LABORATORY Comment: Note: ??Total bilirubin higher than 20 m g/dL may lead to falsely low ionized calcium. CL Whole Blood 98 98 - 107 mmol/L [facility] LABORATORY Gluc Whole Bld 92 65 - 199 mg/dL [facility] LABORATORY Comment: Diabetes: >=200 mg/dL plus symp toms. Lactate WB 0.9 0.5 - 2.2 mmol/L [facility] LABORATORY FIO2 Art 21 % [facility] LABORATORY PF Ratio Art [address] [facility] LABORATORY Specimen Anatomical Collection Method Collection Time Receive d Time (Source) Location / / Volume Laterality Blood 02/08/2022 8:15 AM 2 8:15 EDT AM EDT Jayme Armstrong MD CHEMISTRY ORDERABLES Performing Organization Address City/[facility]/ZIP Code Phon e Number [address] POCT Glucose (02/08/2022 7:42 AM EDT) P athologist Signature POC Glucose 98 65 - 199 [facility] LAB[facility]ATORY Comment: Supplemental ranges: <140 mg/dL before meals <180 mg/dL all other times of the day Specimen Anatomical Collection Method Collection Time Receive d Time (Source) Location / / Volume Laterality Blood 02/08/2022 7:42 AM 2 7:42 EDT AM EDT Jayme Armstrong MD POINT OF CARE TEST ORDERABLE S Performing Organization Address City/State/ZIP Code Phon e Number [address] Phosphorus (02/08/2022 5:57 AM EDT) P athologist Signature Phosphorus 3.9 2.5 - 4.5 [facility] LABORATORY Specimen Anatomical Collection Method Collection Time Receive d Time (Source) Location / / Volume Laterality Blood 02/08/2022 5:57 AM 2 5:58 EDT AM EDT Resulting Agency Comment Spec In Lab Gela Novak MD CHEMISTRY ORDERABLES Performing Organization Address City/State/ZIP Code Phon e Number [address] [address] Magnesium (02/08/2022 5:57 AM EDT) athologist Signature Magnesium 0.91 0.69 - 1.07 [facility] mmol/L [facility] LABORATORY Specimen Anatomical Collection Method Collection Time Receive d Time (Source) Location / / Volume Laterality Blood 02/08/2022 5:57 AM 5:58 EDT AM EDT Resulting Agency Comment Spec In Lab Gela Novak MD CHEMISTRY ORDERABLES Performing Organization Address City/[facility] Code Phon e Number [address] (ABNORMAL) Basic Metabolic Panel (non-fasting) (02/08/2022 5:57 AM EDT) athologist Signature Glucose Lvl 92 65 - 199 [facility] mg/dL [facility] Comment: Diabetes: >=200 mg/dL plus symp toms BUN 29 (H) 10 - 20 mg/dL [facility] Creatinine 2.94 (H) 0.80 - 1.50 mg/dL [facility] LABORAT[facility] Comment: result rechecked-red Sodium 126 (L) 135 - 145 mmol/L [facility] Potassium 4.9 3.5 - 5.0 mmol/L [facility] Comment: Please note: ??Patients with WBC >100,00 0 may have falsely elevated Potassium levels. ??For accurate Potassium quantif ication in these patients send serum separator tube (gold top) for subsequent determinations. ??Contact the Clinical Chemistry Laboratory if there are any qu estions. Chloride 97 (L) 98 - 107 mmol/L [facility] CO2 22 22 - 31 mmol/L [facility] Anion Gap 7 5 - 15 mmol/L [facility] Calcium 8.5 8.5 - 10.5 mg/dL [facility] Comment: result rechecked-red Estimated GFR 28 (L) >=60 mL/min/1.73 m?? [facility] Comment: This patient's estimated GFR [...] Organization Address City/State/ZIP Code Phon e Number [place] [id number] HOSPITAL [address] (ABNORMAL) BLOOD GAS 2 ARTERIAL (02/08/2022 5:54 AM EDT) Analysis Performed At Patho logist Time Signature pH Art 7.47 (H) 7.35 - [facility] 7.45 [facility] pCO2 Art 30 (L) 35 - 45 [facility] mmHg [facility] pO2 Art 87 85 - 104 [facility] mmHg [facility] HCO3 Art 21.5 20.0 - [facility] 26.0 [facility] mmol/L [facility] LABORATORY BE Art -2.1 -3.0 - 3.0 [facility] mmol/L [facility] Hgb Blood Gas 7.7 (L) 13.7 - [facility] 16.5 g/dL [facility] O2HB Art 94.2 94.0 - [facility] 97.0 % [facility] COHB Art 0.3 % [facility] Comment: Nonsmokers: 0.5-1.5% COHB Smokers: Variable, but usually less than 10% Toxic: 20-30% COHB Lethal: Greater than 60% COHB METHB Art 1.0 <=1.5 % [facility] Na Whole Blood 122 (L) 135 - 145 mmol/L [facility] K Whole Blood 4.8 3.5 - 5.0 mmol/L [facility]ORATORY Comment: Please note: Patients with WBC >100,000 may have falsely elevated Potassium levels. Contact the Clinical Chemistry L aboratory if there are any questions. ICa Whole Blood 1.28 1.15 - 1.33 mmol/L [facility] Comment: Note: ??Total bilirubin higher than 20 m g/dL may lead to falsely low ionized calcium. CL Whole Blood 98 98 - 107 mmol/L [facility]ORATORY Gluc Whole Bld 87 65 - 199 mg/dL [facility] LABORATORY Comment: Diabetes: >=200 mg/dL plus symp toms. Lactate WB 1.1 0.5 - 2.2 mmol/L [facility]ORAT[facility] FIO2 Art 21 % [facility] PF Ratio Art [address] [facility] LABORATORY Temp Art 37.2 Celsius [facility] Specimen Anatomical Collection Method Collection Time Receive d Time (Source) Location / / Volume Laterality Blood 02/08/2022 5:54 AM 5:54 EDT AM EDT Jayme Armstrong MD CHEMISTRY ORDERABLES Performing Organization Address City/State/[place] [address] Scan, Peripheral Blood (02/08/2022 1:00 AM EDT) [facility] Method Time Signature Plat Estimate Decreased [facility] RBC Morphology Abnormal [facility] Polychromasia Present >5/HPF [facility] Ovalocytes 1-5 /HPF [facility] Angel Cells 1-5 /HPF [facility] Toxic Granulation Present [facility] Specimen Anatomical Collection Method Collection Time Receive d Time (Source) Location / / Volume Laterality Blood 02/08/2022 1:00 AM 2 1:20 EDT AM EDT Resulting Agency Comment Spec In Lab Danielle Ramirez MD HEMATOLOGY ORDERABLES Performing Organization Address City/State/[place] [address] (ABNORMAL) Differential, Automated (02/08/2022 1:00 AM EDT) [facility] Method Time Signature Neutrophils % 67.2 % [facility] Neutr Abs (ANC) 12.53 (H) 1.70 - [facility] 6.10 [facility] x10(3)/[facility] LABORATORY Lymphocytes % 8.1 % [facility] Lymphocytes Abs 1.5 0.9 - 3.2 [facility] x10(3)/[facility] LABORATORY Monocytes % 13.3 % [facility] Monocyte Abs 2.5 (H) 0.3 - 0.9 [facility] x10(3)/[facility] LABORATORY Eosinophils % 1.2 % [facility] Eosinophils Abs 0.2 0.0 - 0.4 [facility] x10(3)/[facility] LABORATORY Basophils % 0.5 % [facility] Basophils Abs 0.1 0.0 - 0.1 [facility] x10(3)/[facility] LABORATORY Immature Gran % 9.70 % [facility] Comment: Immature granulocytes(IG's)percentage an d absolute count will include metamyelocytes, myelocytes, and promyelo cytes. Blood smears from CBCs yielding IG's will be scanned manually for concor dance. If this scan disagrees with the automated IG or if promyelocytes are not ed, a manual differential will be performed. Gemini Gran Abs 1.81 (H) 0.00 - 0.04 x10(3)/[facility] LABORATORY Specimen Anatomical Collection Method Collection Time Receive d Time (Source) Location / / Volume Laterality Blood 02/08/2022 1:00 AM 2 1:20 EDT AM EDT Resulting Agency Comment Spec In Lab Danielle Ramirez MD HEMATOLOGY ORDERABLES Performing Organization Address City/State/[place] [address] (ABNORMAL) Hemogram (02/08/2022 1:00 AM EDT) [facility] Method Time Signature WBC 18.6 (H) 4.0 - 9.5 [facility] x[facility](3[facility] LABORATORY RBC 2.51 (L) 4.58 - [facility] [place] 5.54 [facility] x10(6)/[facility] LABORATORY Hemoglobin 7.3 (L) 13.7 [facility] 16.5 g/dL [facility] Hematocrit 20.7 (L) 40.5 [facility] 48.5 % [facility] MCV 82.5 (L) 82.9 [facility] 93.1 [facility] LABORATORY MCH 29.1 27.5 [facility] 32.1 pg [facility] LAB[facility]AT[facility] MCHC 35.3 32.0 [facility] 35.7 g/dL [facility] Platelets 97 (L) 145 - 357 [facility] x10(3)/[facility] LABORATORY RDWSD 42.7 36.0 [facility] 45.0 [facility] LABORATORY RDWCV 15.6 (H) 11.4 [facility] 13.8 % [facility] LABORATORY MPV 9.7 7.6 - 12.9 [facility] LABORATORY nRBC % Auto 0.5 % [facility] LABORATORY nRBC Abs Auto 0.100 (H) 0.000 - [facility] MANDO 0.000 [facility] x10(3)/[facility] LABORATORY Specimen Anatomical Collection Method Collection Time Receive d Time (Source) Location / / Volume Laterality Blood 02/08/2022 1:00 AM 2 1:20 EDT AM EDT Resulting Agency Comment Spec In Lab Danielle Ramirez MD HEMATOLOGY ORDERABLES Performing Organization Address City/[facility]/[place] [address] (ABNORMAL) Fibrinogen (02/08/2022 1:00 AM EDT) athologist Signature Fibrinogen 423 (H) 200 - 393 [facility] mg/dL [facility] Comment: A fibrinogen level >100 mg/dL is adequat e for hemostasis in most patients without underlying bleeding disorders. Specimen Anatomical Collection Method Collection Time Receive d Time (Source) Location / / Volume Laterality Blood 02/08/2022 1:00 AM 2 1:20 EDT AM EDT Resulting Agency Comment Spec In Lab Jayme Armstrong MD HEMATOLOGY ORDERABLES Performing Organization Address City/[facility]/ZIP [facility] [place] [address] APTT (02/08/2022 1:00 AM EDT) athologist Signature PTT 25 25 - 37 sec [facility] LABORAT[facility] Comment: The PTT is NOT [...] Armstrong MD HEMATOLOGY ORDERABLES Performing Organization Address City/[facility]/[place] [address] Prothrombin Time (02/08/2022 1:00 AM EDT) athologist Signature PT 12.2 9.4 - 12.5 [facility] LABORATORY INR 1.1 [facility] LABORATORY Comment: An INR <2.0 indicates [...] Organization Address City/State/[place] [address] (ABNORMAL) Blood Gas Arterial ([facility]) (02/08/2022 12:01 AM EDT) Analysis Performed At Patho logist Time Signature pH Art 7.47 (H) 7.35 - [facility] [place] 7.45 [facility] pCO2 Art 32 (L) 35 - 45 [facility] mmHg [facility] LAB[facility] pO2 Art 87 85 - 104 [facility] LABORATORY HCO3 Art 22.6 20.0 - [facility] 26.0 [facility] mmol/L [facility] LABORATORY BE Art -1.1 -3.0 - 3.0 [facility] mmol/L [facility] LAB[facility]AT[facility] Hgb Blood Gas 7.7 (L) 13.7 - [facility] 16.5 g/dL [facility] O2HB Art 95.4 94.0 - [facility] 97.0 % [facility] LAB[facility]AT[facility] COHB Art 1.0 % [facility] LABORAT[facility] Comment: Nonsmokers: ??0.5-1.5% COHB Smokers: ??Variable, but usually less th an 10% Toxic: 20 - 30% COHB Lethal: ??Greater than 60% COHB METHB Art 0.1 <=1.5 % [facility] LABORATORY Na Whole Blood 122 (L) 135 - 145 mmol/L [facility] LABORAT[facility] K Whole Blood 4.6 3.5 - 5.0 mmol/L [facility] LABORATORY Comment: Please note: ??Patients with WBC >100,00 0 may have falsely elevated Potassium levels. ??Contact the Clinical Chemistry Laboratory if there are any questions. ICa Whole Blood 1.24 1.15 - 1.33 mmol/L [facility] LABORATORY Comment: Note: ??Total bilirubin higher than 20 m g/dL may lead to falsely low ionized calcium. CL Whole Blood 99 98 - 107 mmol/L [facility] LABORATORY Gluc Whole Bld 89 65 - 199 mg/dL [facility] LABORATORY Comment: Diabetes: >=200 mg/dL plus symp toms. Lactate WB 1.1 0.5 - 2.2 mmol/L [facility] LABORATORY Specimen Anatomical Collection Method Collection Time Receive d Time (Source) Location / / Volume Laterality Blood Arterial Draw / 02/08/2022 12:01 02/09/20 22 Unknown AM EDT 12:16 AM EDT Resulting Agency Comment Spec In Lab Angelina Reynoso MD CHEMISTRY ORDERABLES Performing Organization Address City/State/ZIP Code Phon e Number [address] (ABNORMAL) Sodium (02/08/2022 12:01 AM EDT) P athologist Signature Sodium 125 (L) 135 - 145 [facility] mmol/L [facility] LABORATORY Specimen Anatomical Collection Method Collection Time Receive d Time (Source) Location / / Volume Laterality Blood 02/08/2022 12:01 02/08/2022 AM EDT 12:15 AM EDT Resulting Agency Comment Spec In Lab Parrish Betancourt MD CHEMISTRY ORDERABLES Performing Organization Address City/State/ZIP Code Phon e Number [address] Prepare RBC (02/07/2022 7:40 PM EDT) P athologist Signature Dispensed? Yes [facility] LABORATORY Specimen Anatomical Collection Method Collection Time Receive d Time (Source) Location / / Volume Laterality Blood 02/07/2022 7:40 PM 7:39 EDT PM EDT Jayme Armstrong MD BLOOD BANK ORDERABLES Performing Organization Address City/State/[place] [address] (ABNORMAL) BLOOD GAS 2 ARTERIAL (02/07/2022 6:08 PM EDT) Analysis Performed At Patho logist Time Signature pH Art 7.50 (H) 7.35 - [facility] 7.45 [facility] LABORATORY pCO2 Art 27 (L) 35 - 45 [facility] LABORATORY pO2 Art 81 (L) 85 - 104 [facility] LABORATORY HCO3 Art 20.8 20.0 - [facility] 26.0 [facility] mmol/[facility] LABORATORY BE Art -2.4 -3.0 - 3.0 [facility] mmol/L [facility] LABORAT[facility] Hgb Blood Gas 8.5 (L) 13.7 - [facility] 16.5 g/dL [facility] O2HB Art 93.9 (L) 94.0 - [facility] 97.0 % [facility] COHB Art 0.3 % [facility] LAB[facility]ATORY Comment: Nonsmokers: 0.5-1.5% COHB Smokers: Variable, but usually less than 10% Toxic: 20-30% COHB Lethal: Greater than 60% COHB METHB Art 1.0 <=1.5 % [facility] LABORATORY Na Whole Blood 119 (Critical) 135 - 145 mmol/L [facility] LABORAT[facility] Comment: Noted by instrument mechanic weapons system. K Whole Blood 5.1 (H) 3.5 - 5.0 mmol/L [facility] LABORATORY Comment: Please note: Patients with WBC >100,000 may have falsely elevated Potassium levels. Contact the Clinical Chemistry L aboratory if there are any questions. ICa Whole Blood 1.18 1.15 - 1.33 mmol/L [facility] LABORATORY Comment: Note: ??Total bilirubin higher than 20 m g/dL may lead to falsely low ionized calcium. CL Whole Blood 96 (L) 98 - 107 mmol/L [facility] LABORATORY Gluc Whole Bld 100 65 - 199 mg/dL [facility] LABORATORY Comment: Diabetes: >=200 mg/dL plus symp toms. Lactate WB 1.4 0.5 - 2.2 mmol/L [facility] LABORATORY Flow Art 21.0 LPM [facility] LABORATORY Specimen Anatomical Collection Method Collection Time Receive d Time (Source) Location / / Volume Laterality Blood 02/07/2022 6:08 PM 6:08 EDT PM EDT Jayme Armstrong MD CHEMISTRY ORDERABLES Performing Organization Address City/State/[place] [address] Scan, Peripheral Blood (02/07/2022 6:05 PM EDT) [facility] Method Time Signature Plat Estimate Decreased [facility] LABORATORY RBC Morphology Abnormal [facility]ORY Polychromasia Present >5/HPF [facility] LABORAT[facility] Angel Cells 1-5 /HPF [facility] LABORATORY Stippled RBCs Present >1/HPF [facility] LABORATORY Specimen Anatomical Collection Method Collection Time Receive d Time (Source) Location / / Volume Laterality Blood 02/07/2022 6:05 PM 6:10 EDT PM EDT Resulting Agency Comment Spec In Lab Rogers Solano APRN HEMATOLOGY ORDERABLES Performing Organization Address City/[facility]/ZIP Code Phon e Number [address] (ABNORMAL) Differential, Automated (02/07/2022 6:05 PM EDT) [facility] Method Time Signature Neutrophils % 67.7 % [facility] LABORATORY Neutr Abs (ANC) 12.21 (H) 1.70 - [facility] 6.10 [facility] x10(3)/[facility] LABORATORY Lymphocytes % 7.1 % [facility] LABORATORY Lymphocytes Abs 1.3 0.9 - 3.2 [facility] x10(3)/[facility] LABORATORY Monocytes % 14.1 % [facility] LABORATORY Monocyte Abs 2.6 (H) 0.3 - 0.9 [facility] x10(3)/[facility] LABORATORY Eosinophils % 0.8 % [facility] LABORATORY Eosinophils Abs 0.1 0.0 - 0.4 [facility] x10(3)/[facility] LABORATORY Basophils % 0.4 % [facility] LABORATORY Basophils Abs 0.1 0.0 - 0.1 [facility] x10(3)/[facility] LABORATORY Immature Gran % 9.90 % [facility] LABORATORY Comment: Immature granulocytes(IG's)percentage an d absolute count will include metamyelocytes, myelocytes, and promyelo cytes. Blood smears from CBCs yielding IG's will be scanned manually for ny crain. If this scan disagrees with the automated IG or if promyelocytes are not ed, a manual differential will be performed. Gemini Gran Abs 1.79 (H) 0.00 - 0.04 x10(3)/[facility] LABORATORY Specimen Anatomical Collection Method Collection Time Receive d Time (Source) Location / / Volume Laterality Blood 02/07/2022 6:05 PM 6:10 EDT PM EDT Resulting Agency Comment Spec In Lab Rogers Solano APRN HEMATOLOGY ORDERABLES Performing Organization Address City/State/ZIP Code Phon e Number [place] [phone] HOSPITAL LABORATORY Drive (ABNORMAL) Hemogram (02/07/2022 6:05 PM EDT) [facility] gist Method Time Signature WBC 18.0 (H) 4.0 - 9.5 [facility] x10(3)/[facility] LABORATORY RBC 2.31 (L) 4.58 - [facility] MANDO 5.54 [facility] x10(6)/[facility] LABORATORY Hemoglobin 6.8 (L) 13.7 [facility] 16.5 g/dL [facility] LAB[facility] Hematocrit 19.3 (L) 40.5 - [facility] 48.5 % [facility] LABORAT[facility] MCV 83.5 82.9 - [facility] 93.1 [facility] LABORATORY MCH 29.4 27.5 - [facility] MANDO 32.1 pg [facility]AT[facility] MCHC 35.2 32.0 - [facility] 35.7 g/dL [facility] Platelets 85 (L) 145 - 357 [facility] x[facility](3[facility] LABORATORY RDWSD 42.5 36.0 - [facility] MANDO 45.0 [facility] LABORATORY RDWCV 14.7 (H) 11.4 - [facility] MANDO 13.8 % [facility] LABORATORY MPV 9.9 7.6 - 12.9 [facility] LABORATORY nRBC % Auto 0.8 % [facility] LABORATORY nRBC Abs Auto 0.150 (H) 0.000 - [place] [place] 0.000 [facility] x10(3)/[facility] LABORATORY Specimen Anatomical Collection Method Collection Time Receive d Time (Source) Location / / Volume Laterality Blood 02/07/2022 6:05 PM 2 6:10 EDT PM EDT Resulting Agency Comment Spec In Lab Rogers Solano APRN HEMATOLOGY ORDERABLES Performing Organization Address City/[facility]/[place] [address] (ABNORMAL) Sodium (02/07/2022 6:05 PM EDT) P athologist Signature Sodium 125 (L) 135 - 145 [facility] mmol/L [facility] LABORATORY Specimen Anatomical Collection Method Collection Time Receive d Time (Source) Location / / Volume Laterality Blood 02/07/2022 6:05 PM 2 6:10 EDT PM EDT Resulting Agency Comment Spec In Lab Parrish Betancourt MD CHEMISTRY ORDERABLES Performing Organization Address City/[facility]/[place] [address] (ABNORMAL) Calcium Ionized Whole Blood, HONORIO (02/07/2022 4:30 PM EDT) Analysis Performed At Patho logist Time Signature pH Honorio 7.43 (H) 7.32 - [facility] 7.42 [facility] ICa Whole 1.15 1.15 - [facility] Blood 1.33 [facility] mmol/L [facility] LABORATORY Comment: Note: ??Total bilirubin higher than 20 m g/dL may lead to falsely low ionized calcium. Specimen Anatomical Collection Method Collection Time Receive d Time (Source) Location / / Volume Laterality Blood ARTERIAL LINE / 02/07/2022 4:30 PM 2021 4:38 Unknown EDT PM EDT Resulting Agency Comment Spec In Lab Parrish Betancourt MD CHEMISTRY ORDERABLES Performing Organization Address City/[facility]/[place] [address] Transfuse RBC (02/07/2022 4:20 PM EDT) Rogers Solano APRN NURSING TREATMENT ORDERABLES - BLOOD ADMIN Transfuse RBC (02/07/2022 4:20 PM EDT) Rogers Solano KATERYNA NURSING TREATMENT ORDERABLES - BLOOD ADMIN Prepare RBC (02/07/2022 1:30 PM EDT) P athologist Signature Dispensed? Yes [facility] LABORATORY Specimen Anatomical Collection Method Collection Time Receive d Time (Source) Location / / Volume Laterality Blood 02/07/2022 1:30 PM 2 1:29 EDT PM EDT Rogers Solano KATERYNA BLOOD BANK ORDERABLES Performing Organization Address City/State/ZIP Code Phon e Number [place] [phone] HOSPITAL LABORATORY Drive XR Chest One View [...] who have questions please contact the health manager wound care that requested your imaging first. ? Narrative [...] ho have questions please contact the health manager wound care that requested your imaging first. Electronically signed by: Boubacar kim MD, [facility] ([phone]), at 02/07/2022 1:37 PM Jayme Armstrong MD IMG DX ORDERABLES (ABNORMAL) BLOOD GAS 2 ARTERIAL (02/07/2022 1:04 PM EDT) Analysis Performed At Patho logist Time Signature pH Art 7.51 (H) 7.35 - [facility] 7.45 [facility] LABORATORY pCO2 Art 28 (L) 35 - 45 [facility] LABORATORY pO2 Art 78 (L) 85 - 104 [facility] LABORATORY HCO3 Art 22.0 20.0 - [facility] 26.0 [facility] mmol/L [facility] LABORATORY BE Art -1.0 -3.0 - 3.0 [facility] mmol/L [facility] Hgb Blood Gas 7.4 (L) 13.7 - [facility] 16.5 g/dL [facility] O2HB Art 93.3 (L) 94.0 - [facility] 97.0 % [facility] COHB Art 0.3 % [facility] LAB[facility] Comment: Nonsmokers: 0.5-1.5% COHB Smokers: Variable, but usually less than 10% Toxic: 20-30% COHB Lethal: Greater than 60% COHB METHB Art 1.2 <=1.5 % [facility] LABORATORY Na Whole Blood 118 (Critical) 135 - 145 mmol/L [facility] Comment: Noted by instrument mechanic weapons system. K Whole Blood 5.8 (H) 3.5 - 5.0 mmol/L [facility] LABORATORY Comment: Please note: Patients with WBC >100,000 may have falsely elevated Potassium levels. Contact the Clinical Chemistry L aboratory if there are any questions. ICa Whole Blood 1.08 (L) 1.15 - 1.33 mmol/L [facility] Comment: Note: ??Total bilirubin higher than 20 m g/dL may lead to falsely low ionized calcium. CL Whole Blood 94 (L) 98 - 107 mmol/L [facility] [facility] Gluc Whole Bld 104 65 - 199 mg/dL [facility] Comment: Diabetes: >=200 mg/dL plus symp toms. Lactate WB 1.2 0.5 - 2.2 mmol/L [facility] FIO2 Art 21 % [facility] PF Ratio Art [address] [facility] Specimen Anatomical Collection Method Collection Time Receive d Time (Source) Location / / Volume Laterality Blood 02/07/2022 1:04 PM 2 1:04 EDT PM EDT Jayme Armstrong MD CHEMISTRY ORDERABLES Performing Organization Address City/State/[place] [address] (ABNORMAL) Phosphorus (02/07/2022 1:00 PM EDT) P athologist Signature Phosphorus 5.0 (H) 2.5 - 4.5 [facility] [place] mg/dL [facility] Specimen Anatomical Collection Method Collection Time Receive d Time (Source) Location / / Volume Laterality Blood Venous Draw / 02/07/2022 1:00 PM 02/08/20 22 1:15 Unknown EDT PM EDT Resulting Agency Comment Spec In Lab Angelina Reynoso MD CHEMISTRY ORDERABLES Performing Organization Address City/[facility]/ZIP Code Phon e Number [address] Magnesium (02/07/2022 1:00 PM EDT) P athologist Signature Magnesium 0.87 0.69 - 1.[address] [facility] [address] mmol/L [facility] Specimen Anatomical Collection Method Collection Time Receive d Time (Source) Location / / Volume Laterality Blood Venous Draw / 02/07/2022 1:00 PM 02/08/20 22 1:15 Unknown EDT PM EDT Resulting Agency Comment Spec In Lab Angelina Reynoso MD CHEMISTRY ORDERABLES Performing Organization Address City/[facility]/ZIP Code Phon e Number [address] (ABNORMAL) Differential, Automated (02/07/2022 1:00 PM EDT) Patholo gist Method Time Signature Neutrophils % 67.1 % [facility] Neutr Abs (ANC) 13.59 (H) 1.70 - [facility] 6.10 [facility] x10(3)/[facility] LABORATORY Lymphocytes % 6.8 % [facility] Lymphocytes Abs 1.4 0.9 - 3.2 [facility] [place] x10(3)/[facility] LABORATORY Monocytes % 13.2 % [facility] Monocyte Abs 2.7 (H) 0.3 - 0.9 [facility] [place] x10(3)/[facility] LABORATORY Eosinophils % 0.5 % [facility] Eosinophils Abs 0.1 0.0 - 0.4 [facility] x10(3)/[facility] LABORATORY Basophils % 0.5 % [facility] Basophils Abs 0.1 0.0 - 0.[address] x10(3[facility] LABORATORY Immature Gran % 11.90 % [facility] Comment: Immature granulocytes(IG's)percentage an d absolute count will include metamyelocytes, myelocytes, and promyelo cytes. Blood smears from CBCs yielding IG's will be scanned manually for concor dance. If this scan disagrees with the automated IG or if promyelocytes are not ed, a manual differential will be performed. Gemini Gran Abs 2.40 (H) 0.00 - 0.04 x10(3)/[facility] LABORATORY Specimen Anatomical Collection Method Collection Time Receive d Time (Source) Location / / Volume Laterality Blood 02/07/2022 1:00 PM 1:09 EDT PM EDT Resulting Agency Comment Spec In Lab Batsheva Hill MD HEMATOLOGY ORDERABLES Performing Organization Address City/State/ZIP Code Phon e Number [place] [phone] HOSPITAL LAB[address]ORY Drive (ABNORMAL) Hemogram (02/07/2022 1:00 PM EDT) [facility] gist Method Time Signature WBC 20.2 (H) 4.0 - 9.5 [facility] x[facility](3[facility] LABORATORY RBC 2.25 (L) 4.58 - [facility] 5.54 [facility] x10(6)/[facility] LABORATORY Hemoglobin 6.6 (L) 13.7 - [facility] 16.5 g/dL [facility] Hematocrit 18.6 (L) 40.5 - [facility] 48.5 % [facility] MCV 82.7 (L) 82.9 - [facility] 93.1 [facility] LABORATORY MCH 29.3 27.5 - [facility] [place] 32.1 pg [facility] MCHC 35.5 32.0 - [facility] 35.7 g/dL [facility] Platelets 112 (L) 145 - 357 [facility] x10(3)/[facility] LABORATORY RDWSD 42.7 36.0 - [facility] [place] 45.0 [facility] LABORATORY RDWCV 14.9 (H) 11.4 - [facility] 13.8 % [facility] MPV 9.8 7.6 - 12.9 [facility] LABORATORY nRBC % Auto 0.9 % [facility] nRBC Abs Auto 0.190 (H) 0.000 - [place] 0.000 [facility] x10(3)/[facility] LABORATORY Specimen Anatomical Collection Method Collection Time Receive d Time (Source) Location / / Volume Laterality Blood 02/07/2022 1:00 PM 2 1:09 EDT PM EDT Resulting Agency Comment Spec In Lab Batsheva Hill MD HEMATOLOGY ORDERABLES Performing Organization Address City/State/[place] [address] (ABNORMAL) Basic Metabolic Panel (non-fasting) (02/07/2022 1:00 PM EDT) P athologist Signature Glucose Lvl 105 65 - 199 [facility] mg/dL [facility] Comment: Diabetes: >=200 mg/dL plus symp toms BUN 41 (H) 10 - 20 mg/dL [facility] Creatinine 3.92 (H) 0.80 - 1.50 mg/dL [facility] Sodium 123 (L) 135 - 145 mmol/L [facility] Potassium 6.0 (H) 3.5 - 5.0 mmol/L [facility] Comment: Please note: ??Patients with WBC >100,00 0 may have falsely elevated Potassium levels. ??For accurate Potassium quantif ication in these patients send serum separator tube (gold top) for subsequent determinations. ??Contact the Clinical Chemistry Laboratory if there are any qu estions. Chloride 94 (L) 98 - 107 mmol/L [facility] CO2 21 (L) 22 - 31 mmol/L [facility] Anion Gap 8 5 - 15 mmol/L [facility] Calcium 7.4 (L) 8.5 - 10.5 mg/dL [facility] Estimated GFR 20 (L) >=60 mL/min/1.73 m?? [facility] Comment: This patient's estimated GFR [...] Organization Address City/State/[place] [address] CENTRAL LINE (02/07/2022 12:52 [...] Patient location at time of insertion: I 4 [facility] Rogers Solano APRN Rogers Solano APRN PROCEDURE/MINOR SURGICAL ORD ERABLES POCT Glucose (02/07/2022 8:22 AM EDT) athologist Signature POC Glucose 130 65 - 199 [facility] mg/dL [facility] Comment: Supplemental ranges: <140 mg/dL before meals <180 mg/dL all other times of the day Specimen Anatomical Collection Method Collection Time Receive d Time (Source) Location / / Volume Laterality Blood 02/07/2022 8:22 AM 8:22 EDT AM EDT Jayme Armstrong MD POINT OF CARE TEST ORDERABLE S Performing Organization Address City/State/ZIP Code Phon e Number [place] [phone] HOSPITAL LABORATORY Drive (ABNORMAL) BLOOD GAS 2 ARTERIAL (02/07/2022 8:16 AM EDT) Analysis Performed At Patho logist Time Signature pH Art 7.50 (H) 7.35 - [facility] [place] 7.45 [facility] pCO2 Art 29 (L) 35 - 45 [facility] mmHg [facility] pO2 Art 76 (L) 85 - 104 [facility] mmHg [facility] HCO3 Art 21.8 20.0 - [facility] 26.0 [facility] mmol/L [facility] LABOR[facility]ORY BE Art -1.4 -3.0 - 3.0 [facility] mmol/L [facility] Hgb Blood Gas 8.0 (L) 13.7 - [facility] 16.5 g/dL [facility] O2HB Art 92.9 (L) 94.0 - [facility] 97.0 % [facility] COHB Art 0.3 % [facility] Comment: Nonsmokers: 0.5-1.5% COHB Smokers: Variable, but usually less than 10% Toxic: 20-30% COHB Lethal: Greater than 60% COHB METHB Art 1.4 <=1.5 % [facility] Na Whole Blood 117 (Critical) 135 - 145 mmol/L [facility] Comment: Noted by instrument mechanic weapons system. K Whole Blood 5.7 (H) 3.5 - 5.0 mmol/L [facility] Comment: Please note: Patients with WBC >100,000 may have falsely elevated Potassium levels. Contact the Clinical Chemistry L aboratory if there are any questions. ICa Whole Blood 1.11 (L) 1.15 - 1.33 mmol/L [facility] Comment: Note: ??Total bilirubin higher than 20 m g/dL may lead to falsely low ionized calcium. CL Whole Blood 94 (L) 98 - 107 mmol/L [facility] Gluc Whole Bld 116 65 - 199 mg/dL [facility] Comment: Diabetes: >=200 mg/dL plus symp toms. Lactate WB 1.3 0.5 - 2.2 mmol/L [facility] FIO2 Art 21 % [facility] PF Ratio Art [address] [facility]ORY Specimen Anatomical Collection Method Collection Time Receive d Time (Source) Location / / Volume Laterality Blood 02/07/2022 8:16 AM 8:16 EDT AM EDT Jayme Armstrong MD CHEMISTRY ORDERABLES Performing Organization Address City/State/[place] [address] Scan, Peripheral Blood (02/07/2022 6:05 AM EDT) [facility] Method Time Signature Plat Estimate Decreased [facility] RBC Morphology Abnormal [facility] Microcytes 1-5 /HPF [facility] Polychromasia Present >5/HPF [facility] Ovalocytes 1-5 /HPF [facility] Angel Cells 1-5 /HPF [facility] Specimen Anatomical Collection Method Collection Time Receive d Time (Source) Location / / Volume Laterality Blood 02/07/2022 6:05 AM 6:11 EDT AM EDT Resulting Agency Comment Spec In Lab Collette ELLIS HEMATOLOGY ORDERABLES Performing Organization Address City/State/[place] [address] (ABNORMAL) Differential, Automated (02/07/2022 6:05 AM EDT) [facility] Method Time Signature Neutrophils % 64.3 % [facility] Neutr Abs (ANC) 15.67 (H) 1.70 - [facility] [place] 6.10 [facility] x10(3)/[facility] LABORATORY Lymphocytes % 6.4 % [facility] Lymphocytes Abs 1.6 0.9 - 3.2 [facility] x10(3)/[facility] LABORATORY Monocytes % 13.7 % [facility] Monocyte Abs 3.3 (H) 0.3 - 0.9 [facility] x10(3)/[facility] LABORATORY Eosinophils % 0.5 % [facility] Eosinophils Abs 0.1 0.0 - 0.4 [facility] x10(3)/[facility] LABORATORY Basophils % 0.5 % [facility] Basophils Abs 0.1 0.0 - 0.1 [facility] x10(3)[facility] LABORATORY Immature Gran % 14.60 % [facility] Comment: Immature granulocytes(IG's)percentage an d absolute count will include metamyelocytes, myelocytes, and promyelo cytes. Blood smears from CBCs yielding IG's will be scanned manually for concor dance. If this scan disagrees with the automated IG or if promyelocytes are not ed, a manual differential will be performed. Gemini Gran Abs 3.54 (H) 0.00 - 0.04 x10(3)/[facility] LABORATORY Specimen Anatomical Collection Method Collection Time Receive d Time (Source) Location / / Volume Laterality Blood 02/07/2022 6:05 AM 2 6:11 EDT AM EDT Resulting Agency Comment Spec In Lab Collette ELLIS HEMATOLOGY ORDERABLES Performing Organization Address City/State/[place] [address] (ABNORMAL) Hemogram (02/07/2022 6:05 AM EDT) [facility] gist Method Time Signature WBC 24.3 (H) 4.0 - 9.5 [facility] [place] x10(3)/[facility] LABORATORY RBC 2.41 (L) 4.58 - [facility] x10(6)/[facility] LABORATORY Hemoglobin 7.1 (L) 13.7 - [facility] g/dL [facility] Hematocrit 19.7 (L) 40.5 - [facility] 48.5 % [facility] MCV 81.7 (L) 82.9 - [facility] 93.1 [facility] LABORATORY MCH 29.5 27.5 - [facility] 32.1 pg [facility] MCHC 36.0 (H) 32.0 - [facility]7 g/dL [facility] Platelets 89 (L) 145 - 357 [facility] x10(3)/[facility] LABORATORY RDWSD 42.7 36.0 - [facility] 45.0 [facility] LABORATORY RDWCV 15.1 (H) 11.4 - [facility] 13.8 % [facility]ATORY MPV 9.8 7.6 - 12.9 [facility] LABORATORY nRBC % Auto 1.5 % [facility] LABORATORY nRBC Abs Auto 0.370 (H) 0.000 - [facility] 0.000 [facility] x10(3)/[facility] LABORATORY Specimen Anatomical Collection Method Collection Time Receive d Time (Source) Location / / Volume Laterality Blood 02/07/2022 6:05 AM 2 6:11 EDT AM EDT Resulting Agency Comment Spec In Lab Collette ELLIS HEMATOLOGY ORDERABLES Performing Organization Address City/[facility]/[place] [address] (ABNORMAL) Sodium (02/07/2022 6:05 AM EDT) P athologist Signature Sodium 126 (L) 135 - 145 [facility] mmol/L [facility] Specimen Anatomical Collection Method Collection Time Receive d Time (Source) Location / / Volume Laterality Blood 02/07/2022 6:05 AM 2 6:11 EDT AM EDT Resulting Agency Comment Spec In Lab Parrish Betancourt MD CHEMISTRY ORDERABLES Performing Organization Address City/[facility]/[place] [address] Transfuse RBC (02/07/2022 5:36 AM EDT) Jayme Armstrong MD NURSING TREATMENT ORDERABLES - BLOOD ADMIN Transfuse RBC (02/07/2022 5:36 AM EDT) Jayme Armstrong MD NURSING TREATMENT ORDERABLES - BLOOD ADMIN Prepare RBC (02/07/2022 4:55 AM EDT) P athologist Signature Dispensed? Yes [facility] Specimen Anatomical Collection Method Collection Time Receive d Time (Source) Location / / Volume Laterality Blood 02/07/2022 4:55 AM 2 4:51 EDT AM EDT Jayme Armstrong MD BLOOD BANK ORDERABLES Performing Organization Address City/[facility]/[place] [address] (ABNORMAL) Calcium Ionized Whole Blood, HONORIO (02/07/2022 3:00 AM EDT) Analysis Performed At Patho logist Time Signature pH Honorio 7.45 (H) 7.32 - [facility] 7.42 [facility] ICa Whole 1.14 (L) 1.15 - [facility] Blood 1.33 [facility] mmol/L [facility] LABORATORY Comment: Note: ??Total bilirubin higher than 20 m g/dL may lead to falsely low ionized calcium. Specimen Anatomical Collection Method Collection Time Receive d Time (Source) Location / / Volume Laterality Blood ARTERIAL LINE / 02/07/2022 3:00 AM 2021 3:11 Unknown EDT AM EDT Resulting Agency Comment Spec In Lab Angelina Reynoso MD CHEMISTRY ORDERABLES Performing Organization Address City/[facility]/[place] [address] Fibrinogen (02/07/2022 2:10 AM EDT) P athologist Signature Fibrinogen 362 200 - 393 [facility] mg/dL [facility] Comment: A fibrinogen level >100 mg/dL is adequat e for hemostasis in most patients without underlying bleeding disorders. Specimen Anatomical Collection Method Collection Time Receive d Time (Source) Location / / Volume Laterality Blood 02/07/2022 2:10 AM 2 2:19 EDT AM EDT Resulting Agency Comment Spec In Lab Collette ELLIS HEMATOLOGY ORDERABLES Performing Organization Address [facility] [place] [address] Prothrombin Time (02/07/2022 2:10 AM EDT) P athologist Signature PT 11.3 9.4 - 12.5 [facility] LABORATORY INR 1.0 [facility] Comment: An INR <2.0 indicates [...] Collette ELLIS HEMATOLOGY ORDERABLES Performing Organization Address City/[facility]/[place] [address] (ABNORMAL) Platelet count (02/07/2022 2:10 AM EDT) athologist Signature Platelets 128 (L) 145 - 357 [facility] [place] x10(3)/[facility] LABORATORY Plat Immature 7.0 0.0 - 7.4 [facility] [place] % % [facility] Comment: Limitation of the Immature Platelet Frac tion (IPF)-May be less reliable when the platelet count is less than 60o283/u L due to statistical imprecision. The IPF [...] in a decreased state of production. References: [employer] The Clinical Value of the Immature Platelet Fraction (IPF) in Cell Recovery Document Number [id number] 12/2010 [employer] The Role of the Imm ature Platelet Fraction (IPF) in the Differential Diagnosis of Thrombocytopen ia, Document [id number] V05 P014 Specimen Anatomical Collection Method Collection Time Receive d Time (Source) Location / / Volume Laterality Blood 02/07/2022 2:10 AM 2:19 EDT AM EDT Resulting Agency Comment Spec In Lab Collette ELLIS HEMATOLOGY ORDERABLES Performing Organization Address City/State/ZIP Code Phon e Number [facility] [place] [address] (ABNORMAL) Hematocrit (02/07/2022 2:10 AM EDT) athologist Signature Hematocrit 19.8 (L) 40.5 - [place] [place] 48.5 % [facility] Specimen Anatomical Collection Method Collection Time Receive d Time (Source) Location / / Volume Laterality Blood 02/07/2022 2:10 AM 2 2:19 EDT AM EDT Resulting Agency Comment Spec In Lab Collette Liana Rob ELLIS HEMATOLOGY ORDERABLES Performing Organization Address City/State/ZIP Code Phon e Number [address] (ABNORMAL) Hemoglobin (02/07/2022 2:10 AM EDT) P athologist Signature Hemoglobin 7.2 (L) 13.7 - 16.5 [facility] g/dL [facility] Specimen Anatomical Collection Method Collection Time Receive d Time (Source) Location / / Volume Laterality Blood 02/07/2022 2:10 AM 2 2:19 EDT AM EDT Resulting Agency Comment Spec In Lab Collette Liana Rob ELLIS HEMATOLOGY ORDERABLES Performing Organization Address City/State/[place] [address] (ABNORMAL) BLOOD GAS 2 ARTERIAL (02/07/2022 12:52 AM EDT) Analysis Performed At Patho logist Time Signature pH Art 7.44 7.35 - [facility] 7.45 [facility] pCO2 Art 34 (L) 35 - 45 [facility] mmHg [facility] pO2 Art 81 (L) 85 - 104 [facility] mmHg [facility] HCO3 Art 22.4 20.0 - [facility] 26.0 [facility] mmol/L [facility] LABORATORY BE Art -1.7 -3.0 - 3.0 [facility] mmol/L [facility] Hgb Blood Gas 8.5 (L) 13.7 - [facility] 16.5 g/dL [facility] O2HB Art 93.4 (L) 94.0 - [facility] 97.0 % [facility] COHB Art 0.3 % [facility] Comment: Nonsmokers: 0.5-1.5% COHB Smokers: Variable, but usually less than 10% Toxic: 20-30% COHB Lethal: Greater than 60% COHB METHB Art 1.0 <=1.5 % [facility] LABORATORY Na Whole Blood 118 (Critical) 135 - 145 mmol/L [facility] Comment: Noted by instrument mechanic weapons system. K Whole Blood 5.6 (H) 3.5 - 5.0 mmol/L [facility]ORATORY Comment: Please note: Patients with WBC >100,000 may have falsely elevated Potassium levels. Contact the Clinical Chemistry L aboratory if there are any questions. ICa Whole Blood 1.11 (L) 1.15 - 1.33 mmol/L [facility] Comment: Note: ??Total bilirubin higher than 20 m g/dL may lead to falsely low ionized calcium. CL Whole Blood 94 (L) 98 - 107 mmol/L [facility]ORATORY Gluc Whole Bld 136 65 - 199 mg/dL [facility]OR[facility]ORY Comment: Diabetes: >=200 mg/dL plus symp toms. Lactate WB 1.4 0.5 - 2.2 mmol/L [facility] FIO2 Art 21 % [facility] PF Ratio Art 386 [facility] LABORATORY Specimen Anatomical Collection Method Collection Time Receive d Time (Source) Location / / Volume Laterality Blood 02/07/2022 12:52 02/07/2022 AM EDT 12:52 AM EDT Jayme Armstrong MD CHEMISTRY ORDERABLES Performing Organization Address City/State/[place] [address] (ABNORMAL) Basic Metabolic Panel (non-fasting) (02/07/2022 12:47 AM EDT) P athologist Signature Glucose Lvl 136 65 - 199 [facility] mg/dL [facility] Comment: Diabetes: >=200 mg/dL plus symp toms BUN 38 (H) 10 - 20 mg/dL [facility] Creatinine 3.43 (H) 0.80 - 1.50 mg/dL [facility]OR[facility] Comment: result rechecked-sf Sodium 125 (L) 135 - 145 mmol/L [facility] Potassium 5.8 (H) 3.5 - 5.0 mmol/L [facility] Comment: Please note: ??Patients with WBC >100,00 0 may have falsely elevated Potassium levels. ??For accurate Potassium quantif ication in these patients send serum separator tube (gold top) for subsequent determinations. ??Contact the Clinical Chemistry Laboratory if there are any qu estions. Chloride 94 (L) 98 - 107 mmol/L [facility] CO2 22 22 - 31 mmol/L [facility] Anion Gap 9 5 - 15 mmol/L [facility] Calcium 7.6 (L) 8.5 - 10.5 mg/dL [facility] Comment: result rechecked-sf Estimated GFR 24 (L) >=60 mL/min/1.73 m?? [facility] Comment: This patient's estimated GFR [...] Organization Address City/State/[place] [address] (ABNORMAL) Phosphorus (02/07/2022 12:47 AM EDT) P athologist Signature Phosphorus 5.0 (H) 2.5 - 4.5 [facility] mg/dL [facility] Specimen Anatomical Collection Method Collection Time Receive d Time (Source) Location / / Volume Laterality Blood 02/07/2022 12:47 02/07/2022 1:02 AM EDT AM EDT Resulting Agency Comment Spec In Lab Gela Novak MD CHEMISTRY ORDERABLES Performing Organization Address City/State/ZIP Code Phon e Number [address] Magnesium (02/07/2022 12:47 AM EDT) P athologist Signature Magnesium 0.84 0.69 - 1.07 [facility] mmol/L [facility] Specimen Anatomical Collection Method Collection Time Receive d Time (Source) Location / / Volume Laterality Blood 02/07/2022 12:47 02/07/2022 1:02 AM EDT AM EDT Resulting Agency Comment Spec In Lab Gela Novak MD CHEMISTRY ORDERABLES Performing Organization Address City/[facility] [place] [address] Fibrinogen (02/06/2022 11:11 PM EDT) athologist Signature Fibrinogen 362 200 - 393 [facility] mg/dL [facility] Comment: A fibrinogen level >100 mg/dL is adequat e for hemostasis in most patients without underlying bleeding disorders. Specimen Anatomical Collection Method Collection Time Receive d Time (Source) Location / / Volume Laterality Blood 02/06/2022 11:11 02/06/2022 PM EDT 11:15 PM EDT Resulting Agency Comment Spec In Lab Jeanette Escamilla APRN HEMATOLOGY ORDERABLES Performing Organization Address City/[facility]/[place] [address] Prothrombin Time (02/06/2022 11:11 PM EDT) P athologist Signature PT 11.0 9.4 - 12.5 [facility] LABORATORY INR 1.0 [facility] LABORATORY Comment: An INR <2.0 indicates [...] Agency Comment Spec In Lab Jeanette Escamilla AGRICULTURAL EXTENSION OFFICER HEMATOLOGY ORDERABLES Performing Organization Address City/[facility]/[place] [address] (ABNORMAL) Platelet count (02/06/2022 11:11 PM EDT) athologist Signature Platelets 125 (L) 145 - 357 [facility] x10(3)/[facility] LABORATORY Plat Immature 5.3 0.0 - 7.4 [facility] % % [facility] Comment: Limitation of the Immature Platelet Frac tion (IPF)-May be less reliable when the platelet count is less than 10x575/u L due to statistical imprecision. The IPF [...] in a decreased state of production. References: [employer] The Clinical Value of the Immature Platelet Fraction (IPF) in Cell Recovery Document Number [id number] 12/2010 [employer] The Role of the Imm ature Platelet Fraction (IPF) in the Differential Diagnosis of Thrombocytopen ia, Document [id number] V012/10/13 P012/12 Specimen Anatomical Collection Method Collection Time Receive d Time (Source) Location / / Volume Laterality Blood 02/06/2022 11:11 02/06/2022 PM EDT 11:15 PM EDT Resulting Agency Comment Spec In Lab Jeanette Escamilla AGRICULTURAL EXTENSION OFFICER HEMATOLOGY ORDERABLES Performing Organization Address City/State/[place] [address] (ABNORMAL) Hematocrit (02/06/2022 11:11 PM EDT) athologist Signature Hematocrit 20.8 (L) 40.5 [facility] 48.5 % [facility] Specimen Anatomical Collection Method Collection Time Receive d Time (Source) Location / / Volume Laterality Blood 02/06/2022 11:11 02/06/2022 PM EDT 11:15 PM EDT Resulting Agency Comment Spec In Lab Jeanette Escamilla APRN HEMATOLOGY ORDERABLES Performing Organization Address City/[facility]/[place] [address] (ABNORMAL) Hemoglobin (02/06/2022 11:11 PM EDT) athologist Signature Hemoglobin 7.7 (L) 13.7 - 16.[address] [address] g/dL [facility] Specimen Anatomical Collection Method Collection Time Receive d Time (Source) Location / / Volume Laterality Blood 02/06/2022 11:11 02/06/2022 PM EDT 11:15 PM EDT Resulting Agency Comment Spec In Lab Jeanette Escamilla APRN HEMATOLOGY ORDERABLES Performing Organization Address City/[facility]/[place] [address] (ABNORMAL) Sodium (02/06/2022 11:11 PM EDT) athologist Signature Sodium 124 (L) 135 - 145 [facility] mmol/L [facility] Specimen Anatomical Collection Method Collection Time Receive d Time (Source) Location / / Volume Laterality Blood 02/06/2022 11:11 02/06/2022 PM EDT 11:15 PM EDT Resulting Agency Comment Spec In Lab Parrish Betancourt MD CHEMISTRY ORDERABLES Performing Organization Address City/[facility]/[place] [address] (ABNORMAL) Calcium Ionized Whole Blood, HONORIO (02/06/2022 10:51 PM EDT) Analysis Performed At Patho logist Time Signature pH Honorio 7.44 (H) 7.32 - [facility] 7.42 [facility] ICa Whole 1.07 (L) 1.15 - [facility] Blood 1.33 [facility] mmol/L [facility] LABORATORY Comment: Note: ??Total bilirubin higher than 20 m g/dL may lead to falsely low ionized calcium. Specimen Anatomical Collection Method Collection Time Receive d Time (Source) Location / / Volume Laterality Blood ARTERIAL LINE / 02/06/2022 10:51 02/07/20 22 Unknown PM EDT 11:06 PM EDT Resulting Agency Comment Spec In Lab Angelina Reynoso MD CHEMISTRY ORDERABLES Performing Organization Address City/[facility]/ZIP [facility] [place] [address] Fibrinogen (02/06/2022 10:20 PM EDT) athologist Signature Fibrinogen 351 200 - 393 [facility] mg/dL [facility] Comment: A fibrinogen level >100 mg/dL is adequat e for hemostasis in most patients without underlying bleeding disorders. Specimen Anatomical Collection Method Collection Time Receive d Time (Source) Location / / Volume Laterality Blood 02/06/2022 10:20 02/06/2022 PM EDT 11:10 PM EDT Resulting Agency Comment Spec In Lab Jeanette Escamilla APRN HEMATOLOGY ORDERABLES Performing Organization Address City/[facility] [place] [address] Prothrombin Time (02/06/2022 10:20 PM EDT) athologist Signature PT 11.1 9.4 - 12.5 [facility] LABORATORY INR 1.0 [facility] LABORATORY Comment: An INR <2.0 indicates [...] Agency Comment Spec In Lab Jeanette Escamilla AGRICULTURAL EXTENSION OFFICER HEMATOLOGY ORDERABLES Performing Organization Address City/State/[place] [address] (ABNORMAL) Platelet count (02/06/2022 10:20 PM EDT) P athologist Signature Platelets 126 (L) 145 - 357 [facility] [place] x10(3)/[facility] LABORATORY Plat Immature 5.9 0.0 - 7.4 [facility] % % [facility] Comment: Limitation of the Immature Platelet Frac tion (IPF)-May be less reliable when the platelet count is less than 82l724/u L due to statistical imprecision. The IPF [...] in a decreased state of production. References: [employer] The Clinical Value of the Immature Platelet Fraction (IPF) in Cell Recovery Document Number [id number] 12/2010 [employer] The Role of the Imm ature Platelet Fraction (IPF) in the Differential Diagnosis of Thrombocytopen ia, Document [id number] V05 P0514 Specimen Anatomical Collection Method Collection Time Receive d Time (Source) Location / / Volume Laterality Blood 02/06/2022 10:20 02/06/2022 PM EDT 11:10 PM EDT Resulting Agency Comment Spec In Lab Jeanette Escamilla AGRICULTURAL EXTENSION OFFICER HEMATOLOGY ORDERABLES Performing Organization Address City/State/[place] [address] (ABNORMAL) Hematocrit (02/06/2022 10:20 PM EDT) athologist Signature Hematocrit 20.5 (L) 40.5 [facility] % [facility] Specimen Anatomical Collection Method Collection Time Receive d Time (Source) Location / / Volume Laterality Blood 02/06/2022 10:20 02/06/2022 PM EDT 11:10 PM EDT Resulting Agency Comment Spec In Lab Jeanette Escamilla APRN HEMATOLOGY ORDERABLES Performing Organization Address City/[facility]/ZIP Code Phon e Number [address] (ABNORMAL) Hemoglobin (02/06/2022 10:20 PM EDT) athologist Signature Hemoglobin 7.6 (L) 13.7 - 16.5 [facility] g/dL [facility] LABORATORY Specimen Anatomical Collection Method Collection Time Receive d Time (Source) Location / / Volume Laterality Blood 02/06/2022 10:20 02/06/2022 PM EDT 11:10 PM EDT Resulting Agency Comment Spec In Lab Jeanette Escamilla APRN HEMATOLOGY ORDERABLES Performing Organization Address City/[facility]/ZIP Code Phon e Number [address] Fibrinogen (02/06/2022 7:45 PM EDT) athologist Signature Fibrinogen 321 200 - 393 [facility] mg/dL [facility] Comment: A fibrinogen level >100 mg/dL is adequat e for hemostasis in most patients without underlying bleeding disorders. Specimen Anatomical Collection Method Collection Time Receive d Time (Source) Location / / Volume Laterality Blood 02/06/2022 7:45 PM 7:56 EDT PM EDT Resulting Agency Comment Spec In Lab Jeanette Escamilla APRN HEMATOLOGY ORDERABLES Performing Organization Address City/[facility]/ZIP Code Phon e Number [address] Prothrombin Time (02/06/2022 7:45 PM EDT) athologist Signature PT 11.0 9.4 - 12.5 [facility] LABORATORY INR 1.0 [facility] LABORATORY Comment: An INR <2.0 indicates [...] Organization Address City/State/[place] [address] (ABNORMAL) Platelet count (02/06/2022 7:45 PM EDT) P athologist Signature Platelets 137 (L) 145 - 357 [facility] x10(3)/[facility] LABORATORY Plat Immature 4.8 0.0 - 7.4 [facility] % % [facility] Comment: Limitation of the Immature Platelet Frac tion (IPF)-May be less reliable when the platelet count is less than 53f235/u L due to statistical imprecision. The IPF [...] in a decreased state of production. References: [employer] The Clinical Value of the Immature Platelet Fraction (IPF) in Cell Recovery Document Number [id number] 12/2010 [employer] The Role of the Imm ature Platelet Fraction (IPF) in the Differential Diagnosis of Thrombocytopen ia, Document [id number] V05// P05/14 Specimen Anatomical Collection Method Collection Time Receive d Time (Source) Location / / Volume Laterality Blood 02/06/2022 7:45 PM 2 7:56 EDT PM EDT Resulting Agency Comment Spec In Lab Jeanette Escamilla AGRICULTURAL EXTENSION OFFICER HEMATOLOGY ORDERABLES Performing Organization Address City/[facility]/ZIP [facility] [place] [address] (ABNORMAL) Hematocrit (02/06/2022 7:45 PM EDT) P athologist Signature Hematocrit 22.1 (L) 40.5 - [facility] 48.5 % [facility] Specimen Anatomical Collection Method Collection Time Receive d Time (Source) Location / / Volume Laterality Blood 02/06/2022 7:45 PM 2 7:56 EDT PM EDT Resulting Agency Comment Spec In Lab Jeanette Escamilla AGRICULTURAL EXTENSION OFFICER HEMATOLOGY ORDERABLES Performing Organization Address City/[facility]/[place] [address] (ABNORMAL) Hemoglobin (02/06/2022 7:45 PM EDT) P athologist Signature Hemoglobin 8.1 (L) 13.7 - 16.[address] [address] g/dL [facility] Specimen Anatomical Collection Method Collection Time Receive d Time (Source) Location / / Volume Laterality Blood 02/06/2022 7:45 PM 2 7:56 EDT PM EDT Resulting Agency Comment Spec In Lab Jeanette Escamilla AGRICULTURAL EXTENSION OFFICER HEMATOLOGY ORDERABLES Performing Organization Address City/[facility]/ZIP [facility] [place] [address] (ABNORMAL) Electrolytes panel (02/06/2022 7:45 PM EDT) P athologist Signature Sodium 123 (L) 135 - 145 [facility] mmol/L [facility] Potassium 6.1 3.5 - 5.0 [facility] ([facility] mmol/L [facility] Comment: Called by: renuka, Read back by: dixie diego, Date/Time:02/06/22 20:32. Please note: ??Patients with WBC >100,00 0 may have falsely elevated Potassium levels. ??For accurate Potassium quantif ication in these patients send serum separator tube (gold top) for subsequent determinations. ??Contact the Clinical Chemistry Laboratory if there are any qu estions. Chloride 94 (L) 98 - 107 mmol/L [facility] LABORATORY CO2 21 (L) 22 - 31 mmol/L [facility] Anion Gap 8 5 - 15 mmol/L [facility] LABORATORY Specimen Anatomical Collection Method Collection Time Receive d Time (Source) Location / / Volume Laterality Blood 02/06/2022 7:45 PM 7:56 EDT PM EDT Resulting Agency Comment Spec In Lab Angelina Reynoso MD CHEMISTRY ORDERABLES Performing Organization Address City/State/[place] [address] (ABNORMAL) BLOOD GAS 2 ARTERIAL (02/06/2022 7:44 PM EDT) Analysis Performed At Patho logist Time Signature pH Art 7.44 7.35 - [facility] 7.45 [facility] pCO2 Art 31 (L) 35 - 45 [facility] mmHg [facility] pO2 Art 86 85 - 104 [facility] LABORATORY HCO3 Art 20.4 20.0 - [facility] 26.0 [facility] mmol/L [facility] LABORATORY BE Art -3.7 (L) -3.0 - 3.0 [facility] mmol/L [facility] Hgb Blood Gas 9.2 (L) 13.7 - [facility] 16.5 g/dL [facility] O2HB Art 94.1 94.0 - [facility] 97.0 % [facility] COHB Art 0.3 % [facility] LABORATORY Comment: Nonsmokers: 0.5-1.5% COHB Smokers: Variable, but usually less than 10% Toxic: 20-30% COHB Lethal: Greater than 60% COHB METHB Art 0.9 <=1.5 % [facility] LABORATORY Na Whole Blood 118 (Critical) 135 - 145 mmol/L [facility] LABORATORY Comment: Noted by instrument mechanic weapons system. K Whole Blood 5.8 (H) 3.5 - 5.0 mmol/L [facility] LABORATORY Comment: Please note: Patients with WBC >100,000 may have falsely elevated Potassium levels. Contact the Clinical Chemistry L aboratory if there are any questions. ICa Whole Blood 1.03 (L) 1.15 - 1.33 mmol/L [facility] LABORATORY Comment: Note: ??Total bilirubin higher than 20 m g/dL may lead to falsely low ionized calcium. CL Whole Blood 94 (L) 98 - 107 mmol/L [facility] LABORATORY Gluc Whole Bld 143 65 - 199 mg/dL [facility] LABORATORY Comment: Diabetes: >=200 mg/dL plus symp toms. Lactate WB 1.5 0.5 - 2.2 mmol/L [facility] LABORATORY FIO2 Art 21 % [facility] LABORATORY PF Ratio Art [address] [facility] LABORATORY Specimen Anatomical Collection Method Collection Time Receive d Time (Source) Location / / Volume Laterality Blood 02/06/2022 7:44 PM 2 7:44 EDT PM EDT Jayme Armstrong MD CHEMISTRY ORDERABLES Performing Organization Address City/State/[place] [address] (ABNORMAL) BLOOD GAS 2 ARTERIAL (02/06/2022 5:47 PM EDT) Analysis Performed At Patho logist Time Signature pH Art 7.42 7.35 - [facility] 7.45 [facility]ORY pCO2 Art 30 (L) 35 - 45 [facility] mmHg [facility]ATORY pO2 Art 68 (L) 85 - 104 [facility] LABORATORY HCO3 Art 19.2 (L) 20.0 - [facility] 26.0 [facility] mmol/[facility] LABORATORY BE Art -5.2 (L) -3.0 - 3.0 [facility] mmol/L [facility] Hgb Blood Gas 9.3 (L) 13.7 - [facility] 16.5 g/dL [facility] O2HB Art 91.8 (L) 94.0 - [facility] 97.0 % [facility] COHB Art 0.3 % [facility] LABORATORY Comment: Nonsmokers: 0.5-1.5% COHB Smokers: Variable, but usually less than 10% Toxic: 20-30% COHB Lethal: Greater than 60% COHB METHB Art 0.9 <=1.5 % [facility] LABORATORY Na Whole Blood 117 (Critical) 135 - 145 mmol/L [facility] Comment: Noted by instrument mechanic weapons system. K Whole Blood 6.0 (H) 3.5 - 5.0 mmol/L [facility] LABORATORY Comment: Please note: Patients with WBC >100,000 may have falsely elevated Potassium levels. Contact the Clinical Chemistry L aboratory if there are any questions. ICa Whole Blood 0.98 (L) 1.15 - 1.33 mmol/L [facility] LABORATORY Comment: Note: ??Total bilirubin higher than 20 m g/dL may lead to falsely low ionized calcium. CL Whole Blood 93 (L) 98 - 107 mmol/L [facility] LABORATORY Gluc Whole Bld 131 65 - 199 mg/dL [facility] LABORATORY Comment: Diabetes: >=200 mg/dL plus symp toms. Lactate WB 1.8 0.5 - 2.2 mmol/L [facility] LABORATORY FIO2 Art 21 % [facility] LABORATORY PF Ratio Art [address] [facility] LABORATORY Specimen Anatomical Collection Method Collection Time Receive d Time (Source) Location / / Volume Laterality Blood 02/06/2022 5:47 PM 2 5:47 EDT PM EDT Jayme Armstrong MD CHEMISTRY ORDERABLES Performing Organization Address City/State/[place] [address] POCT Glucose (02/06/2022 5:44 PM EDT) athologist Signature POC Glucose 153 65 - 199 [facility] mg/dL [facility] Comment: Supplemental ranges: <140 mg/dL before meals <180 mg/dL all other times of the day Specimen Anatomical Collection Method Collection Time Receive d Time (Source) Location / / Volume Laterality Blood 02/06/2022 5:44 PM 2 5:44 EDT PM EDT Jayme Armstrong MD POINT OF CARE TEST ORDERABLE S Performing Organization Address [facility]/[place] [address] Fibrinogen (02/06/2022 4:33 PM EDT) P athologist Signature Fibrinogen 300 200 - 393 [facility] mg/dL [facility]OR[facility] Comment: OR Result called by [...] Armstrong MD HEMATOLOGY ORDERABLES Performing Organization Address [facility] Code Phon e Number [address] APTT (02/06/2022 4:33 PM EDT) P athologist Signature PTT 25 25 - 37 sec [facility] LABORATORY Comment: OR Result called by [...] Organization Address City/State/[place] [address] Prothrombin Time (02/06/2022 4:33 PM EDT) athologist Signature PT 11.2 9.4 - 12.5 [facility] LABORATORY Comment: OR Result called by ?? PARSAD OR Result s read back by: ? Divina Otero at 2022-02-06 16:54:39 INR 1.0 [facility] LABORATORY Comment: OR Result [...] Armstrong MD HEMATOLOGY ORDERABLES Performing Organization Address City/[facility]/[place] [address] (ABNORMAL) Phosphorus (02/06/2022 4:20 PM EDT) athologist Signature Phosphorus 7.4 (H) 2.5 - 4.5 [facility] mg/dL [facility]ORATORY Specimen Anatomical Collection Method Collection Time Receive d Time (Source) Location / / Volume Laterality Blood Venous Draw / 02/06/2022 4:20 PM 02/07/20 22 6:05 Unknown EDT PM EDT Resulting Agency Comment Spec In Lab Jeanette Escamilla APRN CHEMISTRY ORDERABLES Performing Organization Address City/[facility]/[place] [address] Magnesium (02/06/2022 4:20 PM EDT) P athologist Signature Magnesium 0.93 0.69 - 1.07 [facility] mmol/L [facility] LABORATORY Specimen Anatomical Collection Method Collection Time Receive d Time (Source) Location / / Volume Laterality Blood Venous Draw / 02/06/2022 4:20 PM 02/07/20 6:05 Unknown EDT PM EDT Resulting Agency Comment Spec In Lab Jeanette Escamilla APRN CHEMISTRY ORDERABLES Performing Organization Address City/State/[place] [address] (ABNORMAL) Differential, Automated (02/06/2022 4:20 PM EDT) Patholo gist Method Time Signature Neutrophils % 56.4 % [facility] LABORATORY Neutr Abs (ANC) 13.74 (H) 1.70 - [facility] 6.10 [facility] x10(3)/[facility] LABORATORY Lymphocytes % 9.1 % [facility] LABORATORY Lymphocytes Abs 2.2 0.9 - 3.2 [facility] x10(3)/[facility] LABORATORY Monocytes % 13.3 % [facility] LABORATORY Monocyte Abs 3.2 (H) 0.3 - 0.9 [facility] x10(3)/[facility] LABORATORY Eosinophils % 1.1 % [facility] LABORATORY Eosinophils Abs 0.3 0.0 - 0.4 [facility] x10(3)/[facility] LABORATORY Basophils % 1.1 % [facility] LABORATORY Basophils Abs 0.3 (H) 0.0 - 0.1 [facility] x10(3)/[facility] LABORATORY Immature Gran % 19.00 % [facility]ORATORY Comment: Immature granulocytes(IG's)percentage an d absolute count will include metamyelocytes, myelocytes, and promyelo cytes. Blood smears from CBCs yielding IG's will be scanned manually for concor dance. If this scan disagrees with the automated IG or if promyelocytes are not ed, a manual differential will be performed. Gemini Gran Abs 4.64 (H) 0.00 - 0.04 x10(3)/[facility] LABORATORY Specimen Anatomical Collection Method Collection Time Receive d Time (Source) Location / / Volume Laterality Blood 02/06/2022 4:20 PM 4:33 EDT PM EDT Resulting Agency Comment Spec In Lab Jayme Armstrong MD HEMATOLOGY ORDERABLES Performing Organization Address City/State/[place] [address] (ABNORMAL) Hemogram (02/06/2022 4:20 PM EDT) athologist Signature WBC 24.4 (H) 4.0 - 9.5 [facility] x10(3)/[facility] LABORATORY RBC 2.87 (L) 4.58 - [facility] 5.54 [facility] x10(6)/[facility] LABORATORY Hemoglobin 8.5 (L) 13.7 - [facility] 16.5 g/dL [facility]ORATORY Hematocrit 23.4 (L) 40.5 - [facility] 48.5 % [facility] Comment: This result has been called to DIVINA MORA by Tamara Hernandez on 02 06 2022 at 1653, and has been read back. MCV 81.5 (L) 82.9 - 93.1 [facility] LABORATORY MCH 29.6 27.5 - 32.1 pg [facility] LABORATORY MCHC 36.3 (H) 32.0 - 35.7 g/dL [facility] LABORATORY Platelets 110 (L) 145 - 357 x10(3)/[facility] LABORATORY RDWSD 39.9 36.0 - 45.0 [facility] LABORATORY RDWCV 13.9 (H) 11.4 - 13.8 % [facility] LABORATORY MPV 9.7 7.6 - 12.9 [facility] LABORATORY nRBC % Auto 2.0 % [facility] LABORATORY nRBC Abs Auto 0.500 (H) 0.000 - 0.000 x10(3)/[facility] LABORATORY Specimen Anatomical Collection Method Collection Time Receive d Time (Source) Location / / Volume Laterality Blood 02/06/2022 4:20 PM 2 4:33 EDT PM EDT Resulting Agency Comment Spec In Lab Jayme Armstrong MD HEMATOLOGY ORDERABLES Performing Organization Address City/State/[place] [address] (ABNORMAL) Basic Metabolic Panel (non-fasting) (02/06/2022 4:20 PM EDT) athologist Signature Glucose Lvl 117 65 - 199 [facility] [facility] mg/dL [facility] Comment: Diabetes: >=200 mg/dL plus symp toms BUN 47 (H) 10 - 20 mg/dL [facility] Creatinine 4.73 (H) 0.80 - 1.50 mg/dL [facility] Sodium 122 (L) 135 - 145 mmol/L [facility] Potassium 6.1 (Critical) 3.5 - 5.0 mmol/L [facility] Comment: Called by [facility]/Read back by Virgie gunter/02/06/2022 @ 4232 Please note: ??Patients with WBC >100,00 0 may have falsely elevated Potassium levels. ??For accurate Potassium quantif ication in these patients send serum separator tube (gold top) for subsequent determinations. ??Contact the Clinical Chemistry Laboratory if there are any qu estions. Chloride 92 (L) 98 - 107 mmol/L [facility] CO2 21 (L) 22 - 31 mmol/L [facility] Anion Gap 9 5 - 15 mmol/L [facility] Calcium 6.7 (Critical) 8.5 - 10.5 mg/dL [facility] Comment: Called by [facility]/Read back by Soila Castle/02/06/2022 @ 1713 Estimated GFR 16 (L) >=60 mL/min/1.73 m?? [facility] Comment: This patient's estimated GFR [...] Organization Address City/State/[place] [address] (ABNORMAL) BLOOD GAS 2 ARTERIAL (02/06/2022 3:54 PM EDT) Analysis Performed At Patho logist Time Signature pH Art 7.37 7.35 - [facility] [place] 7.45 [facility] pCO2 Art 38 35 - 45 [facility] [place] mmHg [facility] pO2 Art 325 (H) 85 - 104 [facility]ATORY HCO3 Art 21.8 20.0 - [facility] [place] 26.0 [facility] mmol/L [facility] BE Art -3.4 (L) -3.0 - 3.0 [facility] [place] mmol/L [facility] Hgb Blood Gas 8.8 (L) 13.7 - [facility] [place] 16.5 g/dL [facility] O2HB Art 98.0 (H) 94.0 - [facility] [place] 97.0 % [facility] COHB Art 1.1 % [facility] Comment: Nonsmokers: 0.5-1.5% COHB Smokers: Variable, but usually less than 10% Toxic: 20-30% COHB Lethal: Greater than 60% COHB METHB Art 0.3 <=1.5 % [facility] Na Whole Blood 117 (Critical) 135 - 145 mmol/L [facility] Comment: Critical notified to Amber Ray by ins trument certified solid waste facility operator immediately following run time. K Whole Blood 5.7 (H) 3.5 - 5.0 mmol/L [facility] Comment: Please note: Patients with WBC >100,000 may have falsely elevated Potassium levels. Contact the Clinical Chemistry L aboratory if there are any questions. ICa Whole Blood 1.00 (L) 1.15 - 1.33 mmol/L [facility] Comment: Note: ??Total bilirubin higher than 20 m g/dL may lead to falsely low ionized calcium. CL Whole Blood 93 (L) 98 - 107 mmol/L [facility] Gluc Whole Bld 115 65 - 199 mg/dL [facility] Comment: Diabetes: >=200 mg/dL plus symp toms. Lactate WB 1.4 0.5 - 2.2 mmol/L [facility] Specimen Anatomical Collection Method Collection Time Receive d Time (Source) Location / / Volume Laterality Blood 02/06/2022 3:54 PM 3:54 EDT PM EDT Jayme Armstrong MD CHEMISTRY ORDERABLES Performing Organization Address City/State/[place] [address] IR Arteriogram Lower Extremity [...] 2. 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 Monitor for Right [...] General an esthesia Anesthesia/sedation administered by: [facility] Total intra-service sedation time (minut es): Please refer to anesthesia notes for further details. Access Local anesthesia was administered. The v essel was sonographically evaluated and judged to be patent. Real time ultrasoun d was used to visualize needle entry into the vessel and a permanent image wa s stored. A 5 Emirati sheath was placed. Vessel accessed: Right common femoral ar timo Access technique: Micropuncture set with 21 gauge needle Left pelvic angiography The left pelvic arterial system was cath eterized using a 150 cm 0.035 3J guidewire, 5 Emirati Berenstein catheter, 3 Emirati renegade STC microcatheter and wire. Vessel catheterized: [...] who have questions please contact the health manager wound care that requested your imaging first. ? Electronically signed by: Nicole escobar MD, [facility] ([phone]), at 02/08/2022 3:14 PM Narrative 02/08/2022 3:14 [...] 2. 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 Monitor for Right [...] anesthesia/sedation: General an esthesia Anesthesia[facility]ation [facility] Total intra-service sedation time (minut es): Please refer to anesthesia notes for further details. Access Local anesthesia was administered. The v essel was sonographically evaluated and judged to be patent. Real time ultrasoun d was used to visualize needle entry into the vessel and a permanent image wa s stored. A 5 Emirati sheath was placed. Vessel accessed: Right common femoral ar timo Access technique: Micropuncture set with 21 gauge needle Left pelvic angiography The left pelvic arterial system was cath eterized using a 150 cm 0.035 3J guidewire, 5 Emirati Berenstein catheter, 3 Emirati renegade STC microcatheter and wire. Vessel catheterized: [...] Specimens removed: None Estimated blood loss (mL): 50 Standardized report: [email or web address] Attestation Signer name: Nicole [...] ho have questions please contact the health manager wound care that requested your imaging first. Jeanette Escamilla APRN IMG IR ORDERABLES POCT Glucose (02/06/2022 12:16 PM EDT) athologist Signature POC Glucose 167 65 - [address]/dL [facility] Comment: Supplemental ranges: <140 mg/dL before meals <180 mg/dL all other times of the day Specimen Anatomical Collection Method Collection Time Receive d Time (Source) Location / / Volume Laterality Blood 02/06/2022 12:16 02/06/2022 PM EDT 12:16 PM EDT Jayme Armstrong MD POINT OF CARE TEST ORDERABLE S Performing Organization Address City/[facility]/[place] [address] Fibrinogen (02/06/2022 11:30 AM EDT) athologist Signature Fibrinogen 279 200 - 393 [facility] Comment: A fibrinogen level >100 mg/dL is adequat e for hemostasis in most patients without underlying bleeding disorders. Specimen Anatomical Collection Method Collection Time Receive d Time (Source) Location / / Volume Laterality Blood 02/06/2022 11:30 02/06/2022 AM EDT 11:36 AM EDT Resulting Agency Comment Spec In Lab Jeanette Escamilla APRN HEMATOLOGY ORDERABLES Performing Organization Address City/[facility]/ZIP [facility] [place] [address] Prothrombin Time (02/06/2022 11:30 AM EDT) athologist Signature PT 11.6 9.4 - 12.5 [facility] LABORATORY INR 1.0 [facility] Comment: An INR <2.0 indicates [...] Organization Address City/State/[place] [address] Platelet count (02/06/2022 11:30 AM EDT) athologist Signature Platelets 164 145 - 357 [facility] [place] x10(3)/[facility] LABORATORY Plat Immature 4.2 0.0 - 7.4 [facility] [place] % % [facility] Comment: Limitation of the Immature Platelet Frac tion (IPF)-May be less reliable when the platelet count is less than 82p815/u L due to statistical imprecision. The IPF [...] in a decreased state of production. References: [employer] The Clinical Value of the Immature Platelet Fraction (IPF) in Cell Recovery Document Number [id number] 12/2010 [employer] The Role of the Imm ature Platelet Fraction (IPF) in the Differential Diagnosis of Thrombocytopen ia, Document MKT-[id number] V05/07/14 P014 Specimen Anatomical Collection Method Collection Time Receive d Time (Source) Location / / Volume Laterality Blood 02/06/2022 11:30 02/06/2022 AM EDT 11:36 AM EDT Resulting Agency Comment Spec In Lab Jeanette Escamilla APRN HEMATOLOGY ORDERABLES Performing Organization Address City/[facility]/[place] [address] (ABNORMAL) Hematocrit (02/06/2022 11:30 AM EDT) P athologist Signature Hematocrit 24.7 (L) 40.5 [facility] 48.5 % [facility] Specimen Anatomical Collection Method Collection Time Receive d Time (Source) Location / / Volume Laterality Blood 02/06/2022 11:30 02/06/2022 AM EDT 11:36 AM EDT Resulting Agency Comment Spec In Lab Jeanette Escamilla APRN HEMATOLOGY ORDERABLES Performing Organization Address City/[facility]/[place] [address] (ABNORMAL) Hemoglobin (02/06/2022 11:30 AM EDT) P athologist Signature Hemoglobin 8.7 (L) 13.7 - 16.5 [facility] g/dL [facility] Specimen Anatomical Collection Method Collection Time Receive d Time (Source) Location / / Volume Laterality Blood 02/06/2022 11:30 02/06/2022 AM EDT 11:36 AM EDT Resulting Agency Comment Spec In Lab Jeanette Escamilla APRN HEMATOLOGY ORDERABLES Performing Organization Address City/[facility]/[place] [address] (ABNORMAL) Sodium (02/06/2022 11:30 AM EDT) P athologist Signature Sodium 122 (L) 135 - [address] [facility] mmol/L [facility] Specimen Anatomical Collection Method Collection Time Receive d Time (Source) Location / / Volume Laterality Blood 02/06/2022 11:30 02/06/2022 AM EDT 11:36 AM EDT Resulting Agency Comment Spec In Lab Parrish Betancourt MD CHEMISTRY ORDERABLES Performing Organization Address City/[facility]/[place] [address] Prepare RBC (02/06/2022 10:35 AM EDT) P athologist Signature Dispensed? Yes [facility] Specimen Anatomical Collection Method Collection Time Receive d Time (Source) Location / / Volume Laterality Blood 02/06/2022 10:35 02/06/2022 AM EDT 10:32 AM EDT Jeanette Escamilla APRN BLOOD BANK ORDERABLES Performing Organization Address City/[facility]/[place] [address] Fibrinogen (02/06/2022 9:35 AM EDT) P athologist Signature Fibrinogen 279 200 - 393 [facility] [place] mg/dL [facility] Comment: A fibrinogen level >100 mg/dL is adequat e for hemostasis in most patients without underlying bleeding disorders. Specimen Anatomical Collection Method Collection Time Receive d Time (Source) Location / / Volume Laterality Blood 02/06/2022 9:35 AM 2 9:44 EDT AM EDT Resulting Agency Comment Spec In Lab Jeanette Escamilla APRN HEMATOLOGY ORDERABLES Performing Organization Address City/[facility]/[place] [address] Prothrombin Time (02/06/2022 9:35 AM EDT) P athologist Signature PT 11.4 9.4 - 12.5 [facility] LABORATORY INR 1.0 [facility] Comment: An INR <2.0 indicates [...] Comment Spec In Lab Jeanette E Escamilla AGRICULTURAL EXTENSION OFFICER HEMATOLOGY ORDERABLES Performing Organization Address City/State/[place] [address] Platelet count (02/06/2022 9:35 AM EDT) athologist Signature Platelets 174 145 - 357 [facility] x10(3)/[facility] LABORATORY Plat Immature 4.6 0.0 - 7.4 [facility] % % [facility] Comment: Limitation of the Immature Platelet Frac tion (IPF)-May be less reliable when the platelet count is less than 62p611/u L due to statistical imprecision. The IPF [...] in a decreased state of production. References: [employer] The Clinical Value of the Immature Platelet Fraction (IPF) in Cell Recovery Document Number [id number] 12/2010 [employer] The Role of the Imm ature Platelet Fraction (IPF) in the Differential Diagnosis of Thrombocytopen ia, Document [id number] V05 P012/12 Specimen Anatomical Collection Method Collection Time Receive d Time (Source) Location / / Volume Laterality Blood 02/06/2022 9:35 AM 9:44 EDT AM EDT Resulting Agency Comment Spec In Lab Jeanette Escamilla AGRICULTURAL EXTENSION OFFICER HEMATOLOGY ORDERABLES Performing Organization Address City/State/[place] [address] (ABNORMAL) Hematocrit (02/06/2022 9:35 AM EDT) athologist Signature Hematocrit 25.9 (L) 40.5 - [facility] [place] 48.5 % [facility] Specimen Anatomical Collection Method Collection Time Receive d Time (Source) Location / / Volume Laterality Blood 02/06/2022 9:35 AM 2 9:44 EDT AM EDT Resulting Agency Comment Spec In Lab Jeanette Martinez Andi AVENDAÑO HEMATOLOGY ORDERABLES Performing Organization Address City/[facility]/[place] [address] (ABNORMAL) Hemoglobin (02/06/2022 9:35 AM EDT) P athologist Signature Hemoglobin 9.0 (L) 13.7 - 16.5 [facility] [place] g/dL [facility] Specimen Anatomical Collection Method Collection Time Receive d Time (Source) Location / / Volume Laterality Blood 02/06/2022 9:35 AM 2 9:44 EDT AM EDT Resulting Agency Comment Spec In Lab Jeanette Juan Andi AVENDAÑO HEMATOLOGY ORDERABLES Performing Organization Address City/[facility]/[place] [address] Transfuse RBC (02/06/2022 9:29 [...] Signature pH Art 7.46 (H) 7.35 - [facility] [place] 7.45 [facility] pCO2 Art 31 (L) 35 - 45 [facility] [place] mmHg [facility] pO2 Art 89 85 - 104 [facility]ATORY HCO3 Art 21.5 20.0 - [facility] [place] 26.0 [facility] mmol/[facility] BE Art -2.3 -3.0 - 3.0 [facility] [place] mmol/L [facility] Hgb Blood Gas 9.5 (L) 13.7 - [facility] [place] 16.5 g/dL [facility] O2HB Art 95.5 94.0 - [facility] [place] 97.0 % [facility] COHB Art 0.3 % [facility] Comment: Nonsmokers: 0.5-1.5% COHB Smokers: Variable, but usually less than 10% Toxic: 20-30% COHB Lethal: Greater than 60% COHB METHB Art 0.8 <=1.5 % [facility] Na Whole Blood 115 (Critical) 135 - 145 mmol/L [facility] Comment: Noted by instrument mechanic weapons system. K Whole Blood 5.7 (H) 3.5 - 5.0 mmol/L [facility] Comment: Please note: Patients with WBC >100,000 may have falsely elevated Potassium levels. Contact the Clinical Chemistry L aboratory if there are any questions. ICa Whole Blood 0.93 (L) 1.15 - 1.33 mmol/L [facility] Comment: Note: ??Total bilirubin higher than 20 m g/dL may lead to falsely low ionized calcium. CL Whole Blood 92 (L) 98 - 107 mmol/L [facility] Gluc Whole Bld 138 65 - 199 mg/dL [facility] Comment: Diabetes: >=200 mg/dL plus symp toms. Lactate WB 1.7 0.5 - 2.2 mmol/L [facility] FIO2 Art 21 % [facility] PF Ratio Art 424 [facility] Specimen Anatomical Collection Method Collection Time Receive d Time (Source) Location / / Volume Laterality Blood 02/06/2022 9:06 AM 9:06 EDT AM EDT Dunia Han DO CHEMISTRY ORDERABLES Performing Organization Address City/State/[place] [address] (ABNORMAL) Phosphorus (02/06/2022 9:00 AM EDT) P athologist Signature Phosphorus 7.1 (H) 2.5 - 4.5 [facility] mg/dL [facility] Specimen Anatomical Collection Method Collection Time Receive d Time (Source) Location / / Volume Laterality Blood 02/06/2022 9:00 AM 2 9:04 EDT AM EDT Resulting Agency Comment Spec In Lab Angelina Reynoso MD CHEMISTRY ORDERABLES Performing Organization Address City/State/ZIP Code Phon e Number [address] Magnesium (02/06/2022 9:00 AM EDT) P athologist Signature Magnesium 0.99 0.69 - 1.07 [facility] [place] mmol/L [facility] Specimen Anatomical Collection Method Collection Time Receive d Time (Source) Location / / Volume Laterality Blood 02/06/2022 9:00 AM 2 9:04 EDT AM EDT Resulting Agency Comment Spec In Lab Angelina Reynoso MD CHEMISTRY ORDERABLES Performing Organization Address City/State/ZIP Code Phon e Number [address] (ABNORMAL) Creatinine (02/06/2022 9:00 AM EDT) Analysis Performed At Patho logist Time Signature Creatinine 4.64 (H) 0.80 - [facility] [place] 1.50 mg/dL [facility] Estimated GFR 16 (L) >=60 [facility] mL/min/1.7 [facility] 3 ? [facility] Comment: This patient's estimated GFR was [...] Reynoso MD CHEMISTRY ORDERABLES Performing Organization Address City/[facility]/ZIP Code Phon e Number [address] (ABNORMAL) BUN (02/06/2022 9:00 AM EDT) athologist Signature BUN 44 (H) 10 - [address] [facility] mg/dL [facility] Specimen Anatomical Collection Method Collection Time Receive d Time (Source) Location / / Volume Laterality Blood 02/06/2022 9:00 AM 2 9:04 EDT AM EDT Resulting Agency Comment Spec In Lab Angelina Reynoso MD CHEMISTRY ORDERABLES Performing Organization Address [facility] [place] [address] (ABNORMAL) Electrolytes panel (02/06/2022 9:00 AM EDT) P athologist Signature Sodium 123 (L) 135 - 145 [facility] [place] mmol/L [facility] Potassium 6.0 (H) 3.5 - 5.0 [facility] [place] mmol/L [facility] Comment: Please note: ??Patients with WBC >100,00 0 may have falsely elevated Potassium levels. ??For accurate Potassium quantif ication in these patients send serum separator tube (gold top) for subsequent determinations. ??Contact the Clinical Chemistry Laboratory if there are any qu estions. Chloride 91 (L) 98 - 107 mmol/L [facility] CO2 23 22 - 31 mmol/L [facility] Anion Gap 9 5 - 15 mmol/L [facility] Specimen Anatomical Collection Method Collection Time Receive d Time (Source) Location / / Volume Laterality Blood 02/06/2022 9:00 AM 2 9:04 EDT AM EDT Resulting Agency Comment Spec In Lab Angelina Reynoso MD CHEMISTRY ORDERABLES Performing Organization Address City/[facility]/ZIP [facility] Phon e Number [address] Transfuse RBC (02/06/2022 8:38 AM EDT) Dunia Han DO NURSING TREATMENT ORDERAB LES - BLOOD ADMIN POCT Glucose (02/06/2022 7:47 AM EDT) athologist Signature POC Glucose 149 65 - 199 [facility] [place] mg/dL [facility] Comment: Supplemental ranges: <140 mg/dL before meals <180 mg/dL all other times of the day Specimen Anatomical Collection Method Collection Time Receive d Time (Source) Location / / Volume Laterality Blood 02/06/2022 7:47 AM 7:47 EDT AM EDT Dunia Han DO POINT OF CARE TEST ORDERA BLES Performing Organization Address City/[facility]/ZIP Code Phon e Number [address] Prepare RBC (02/06/2022 7:40 AM EDT) athologist Signature Dispensed? Yes [facility] Specimen Anatomical Collection Method Collection Time Receive d Time (Source) Location / / Volume Laterality Blood 02/06/2022 7:40 AM 2 7:37 EDT AM EDT Dunia Han DO BLOOD BANK ORDERABLES Performing Organization Address City/[facility]/[place] [address] (ABNORMAL) Basic Metabolic Panel (non-fasting) (02/06/2022 7:40 AM EDT) athologist Signature Glucose Lvl 138 65 - 199 [facility] [place] mg/dL [facility] Comment: Diabetes: >=200 mg/dL plus symp toms BUN 44 (H) 10 - 20 mg/dL [facility] Creatinine 4.52 (H) 0.80 - 1.50 mg/dL [facility] Sodium 123 (L) 135 - 145 mmol/L [facility] Potassium 5.4 (H) 3.5 - 5.0 mmol/L [facility] Comment: Please note: ??Patients with WBC >100,00 0 may have falsely elevated Potassium levels. ??For accurate Potassium quantif ication in these patients send serum separator tube (gold top) for subsequent determinations. ??Contact the Clinical Chemistry Laboratory if there are any qu estions. Chloride 91 (L) 98 - 107 mmol/L [facility] CO2 23 22 - 31 mmol/L [facility] Anion Gap 9 5 - 15 mmol/L [facility] Calcium 6.7 (Critical) 8.5 - 10.5 mg/dL [facility] Comment: Called by: , Read back by: Alden Colindres, Date/Time:02/06/22 09:21. Estimated GFR 17 (L) >=60 mL/min/1.73 m?? [facility] Comment: This patient's estimated GFR [...] Volume Laterality Blood 02/06/2022 7:40 AM 2 7:55 EDT AM EDT Resulting Agency Comment Spec In Lab Dunia Han DO CHEMISTRY ORDERABLES Performing Organization Address City/State/[place] [address] (ABNORMAL) BLOOD GAS 2 VENOUS (02/06/2022 6:19 AM EDT) P athologist Signature pH Honorio 7.40 7.32 - [facility] [place] 7.42 [facility] pCO2 [place] 40 (L) 41 - 51 [facility] LABORATORY pO2 Honorio 31 25 - 40 [facility] LABORATORY HCO3 [place] 24.2 mmol/L [facility] BE Honorio -0.5 mmol/L [facility] Hgb Blood Gas 8.2 (L) 13.7 - [facility] [place] 16.5 g/dL [facility] O2HB Honorio 65.2 % [facility] COHB Honorio 1.0 % [facility] Comment: Nonsmokers: 0.5-1.5% COHB Smokers: Variable, but usually less than 10% Toxic: 20-30% COHB Lethal: Greater than 60% COHB METHB Honorio 0.9 <=1.5 % [facility] Na Whole Blood 117 (Critical) 135 - 145 mmol/L [facility] Comment: Noted by instrument mechanic weapons system. K Whole Blood 5.2 (H) 3.5 - 5.0 mmol/L [facility] Comment: Please note: Patients with WBC >100,000 may have falsely elevated Potassium levels. Contact the Clinical Chemistry L aboratory if there are any questions. ICa Whole Blood 0.96 (L) 1.15 - 1.33 mmol/L [facility] Comment: Note: ??Total bilirubin higher than 20 m g/dL may lead to falsely low ionized calcium. CL Whole Blood 91 (L) 98 - 107 mmol/L [facility] Gluc Whole Bld 113 65 - 199 mg/dL [facility] Comment: Diabetes: >=200 mg/dL plus symp toms Lactate WB 1.3 0.5 - 2.2 mmol/L [facility] LABORATORY BGas Source Venous [facility] LABORATORY Specimen Anatomical Collection Method Collection Time Receive d Time (Source) Location / / Volume Laterality Blood 02/06/2022 6:19 AM 6:19 EDT AM EDT Dunia Han DO CHEMISTRY ORDERABLES Performing Organization Address City/State/[place] [address] Fibrinogen (02/06/2022 6:16 AM EDT) athologist Signature Fibrinogen 294 200 - [address] [address] mg/dL [facility] Comment: A fibrinogen level >100 mg/dL is adequat e for hemostasis in most patients without underlying bleeding disorders. Specimen Anatomical Collection Method Collection Time Receive d Time (Source) Location / / Volume Laterality Blood 02/06/2022 6:16 AM 2 6:20 EDT AM EDT Resulting Agency Comment Spec In Lab Danielle Ramirez MD HEMATOLOGY ORDERABLES Performing Organization Address City/[facility] Code Phon e Number [address] Prothrombin Time (02/06/2022 6:16 AM EDT) athologist Signature PT 11.6 9.4 - 12.5 [facility] LABORATORY INR 1.0 [facility] LABORAT[facility] Comment: An INR <2.0 indicates [...] Ramirez MD HEMATOLOGY ORDERABLES Performing Organization Address City/[facility] Code Phon e Number [place] [id number] HOSPITAL LABORATORY [address] Platelet count (02/06/2022 6:16 AM EDT) athologist Signature Platelets 185 145 - 357 [facility] LABORATORY Plat Immature 2.7 0.0 - 7.4 [facility] MANDO % % [facility] Comment: Limitation of the Immature Platelet Frac tion (IPF)-May be less reliable when the platelet count is less than 34t442/u L due to statistical imprecision. The IPF [...] in a decreased state of production. References: [employer] The Clinical Value of the Immature Platelet Fraction (IPF) in Cell Recovery Document Number [id number] 12/2010 [employer] The Role of the Imm ature Platelet Fraction (IPF) in the Differential Diagnosis of Thrombocytopen ia, Document [id number] V05 P012/12 Specimen Anatomical Collection Method Collection Time Receive d Time (Source) Location / / Volume Laterality Blood 02/06/2022 6:16 AM 2 6:20 EDT AM EDT Resulting Agency Comment Spec In Lab Danielle Ramirez MD HEMATOLOGY ORDERABLES Performing Organization Address City/[facility]/ZIP Code Phon e Number [address] (ABNORMAL) Hematocrit (02/06/2022 6:16 AM EDT) P athologist Signature Hematocrit 20.5 (L) 40.5 - [facility] 48.5 % [facility] Specimen Anatomical Collection Method Collection Time Receive d Time (Source) Location / / Volume Laterality Blood 02/06/2022 6:16 AM 2 6:20 EDT AM EDT Resulting Agency Comment Spec In Lab Danielle Ramirez MD HEMATOLOGY ORDERABLES Performing Organization Address City/[facility] [place] [address] (ABNORMAL) Hemoglobin (02/06/2022 6:16 AM EDT) P athologist Signature Hemoglobin 7.5 (L) 13.7 - 16.5 [facility] g/dL [facility] Specimen Anatomical Collection Method Collection Time Receive d Time (Source) Location / / Volume Laterality Blood 02/06/2022 6:16 AM 6:20 EDT AM EDT Resulting Agency Comment Spec In Lab Danielle Ramirez MD HEMATOLOGY ORDERABLES Performing Organization Address City/State/[place] [address] (ABNORMAL) BLOOD GAS 2 ARTERIAL (02/06/2022 6:14 AM EDT) Analysis Performed At Patho logist Time Signature pH Art 7.47 (H) 7.35 - [facility] 7.45 [facility] pCO2 Art 33 (L) 35 - 45 [facility] mmHg [facility] pO2 Art 83 (L) 85 - 104 [facility] LABORATORY HCO3 Art 23.3 20.0 - [facility] 26.0 [facility] mmol/L [facility] LABORATORY BE Art -0.3 -3.0 - 3.0 [facility] mmol/L [facility] Hgb Blood Gas 8.4 (L) 13.7 - [facility] 16.5 g/dL [facility] O2HB Art 94.3 94.0 - [facility] 97.0 % [facility] COHB Art 0.3 % [facility] Comment: Nonsmokers: 0.5-1.5% COHB Smokers: Variable, but usually less than 10% Toxic: 20-30% COHB Lethal: Greater than 60% COHB METHB Art 1.0 <=1.5 % [facility] LABORATORY Na Whole Blood 117 (Critical) 135 - 145 mmol/L [facility] Comment: Noted by instrument mechanic weapons system. K Whole Blood 5.3 (H) 3.5 - 5.0 mmol/L [facility] LABORATORY Comment: Please note: Patients with WBC >100,000 may have falsely elevated Potassium levels. Contact the Clinical Chemistry L aboratory if there are any questions. ICa Whole Blood 0.96 (L) 1.15 - 1.33 mmol/L [facility] LABOR[facility] Comment: Note: ??Total bilirubin higher than 20 m g/dL may lead to falsely low ionized calcium. CL Whole Blood 91 (L) 98 - 107 mmol/L [facility] LABORATORY Gluc Whole Bld 117 65 - 199 mg/dL [facility] LABORATORY Comment: Diabetes: >=200 mg/dL plus symp toms. Lactate WB 1.3 0.5 - 2.2 mmol/L [facility] LABORATORY FIO2 Art 21 % [facility] LABORAT[facility] PF Ratio Art [address] [facility] LABORATORY Specimen Anatomical Collection Method Collection Time Receive d Time (Source) Location / / Volume Laterality Blood 02/06/2022 6:14 AM 2 6:14 EDT AM EDT Dunia Han DO CHEMISTRY ORDERABLES Performing Organization Address City/[facility]/ZIP Code Phon e Number [address] Transfuse RBC (02/06/2022 6:01 AM EDT) Duniaryan Stewart A Atchinson DO NURSING TREATMENT ORDERAB LES - BLOOD ADMIN Transfuse RBC (02/06/2022 6:01 AM EDT) Dunia Pat A Atchinson DO NURSING TREATMENT ORDERAB LES - BLOOD ADMIN Blood culture (02/06/2022 6:00 AM EDT) [facility] gist Method Time Signature Blood Culture No growth JOSH MANDO at 5 days. [facility] Specimen Anatomical Collection Method Collection Time Receive d Time (Source) Location / / Volume Laterality Blood 02/06/2022 6:00 AM 2 7:28 EDT AM EDT Resulting Agency Comment Spec In Lab Dunia Han DO MICROBIOLOGY - BLOOD ORDE RABLES Performing Organization Address City/[facility]/ZIP Code Phon e Number [address] Insert Arterial Line (02/06/2022 [...] p lanned procedure. ?? Hand Hygiene: The evidence specialist did perform h and hygiene prior to [...] 4:20 AM EDT) athologist Signature Dispensed? Yes [facility]OR[facility] Specimen Anatomical Collection Method Collection Time Receive d Time (Source) Location / / Volume Laterality Blood 02/06/2022 4:20 AM 2 4:20 EDT AM EDT Dunia Han DO BLOOD BANK ORDERABLES Performing Organization Address City/State/[place] [address] Scan, Peripheral Blood (02/06/2022 3:48 AM EDT) [facility] gist Method Time Signature Plat Estimate Normal [facility] RBC Morphology Abnormal [facility] Ovalocytes 1-5 /HPF [facility] LABOR[facility] [place] Cells 1-5 /HPF [facility]OR[facility] Specimen Anatomical Collection Method Collection Time Receive d Time (Source) Location / / Volume Laterality Blood 02/06/2022 3:48 AM 3:51 EDT AM EDT Resulting Agency Comment Spec In Lab Danielle Ramirez MD HEMATOLOGY ORDERABLES Performing Organization Address City/State/[place] [address] (ABNORMAL) Differential, Automated (02/06/2022 3:48 AM EDT) [facility] Method Time Signature Neutrophils % 56.0 % [facility] Neutr Abs (ANC) 10.94 (H) 1.70 - [facility] 6.10 [facility] x10(3)/[facility] LABORATORY Lymphocytes % 11.6 % [facility] Lymphocytes Abs 2.3 0.9 - 3.2 [facility] x10(3)/[facility] LABORATORY Monocytes % 15.0 % [facility] Monocyte Abs 2.9 (H) 0.3 - 0.9 [facility] x10(3)/[facility] LABORATORY Eosinophils % 1.0 % [facility] Eosinophils Abs 0.2 0.0 - 0.4 [facility] x10(3)/[facility] LABORATORY Basophils % 0.6 % [facility] Basophils Abs 0.1 0.0 - 0.1 [facility] x10(3)/[facility] LABORATORY Immature Gran % 15.80 % [facility] Comment: Immature granulocytes(IG's)percentage an d absolute count will include metamyelocytes, myelocytes, and promyelo cytes. Blood smears from CBCs yielding IG's will be scanned manually for concor dance. If this scan disagrees with the automated IG or if promyelocytes are not ed, a manual differential will be performed. Gemini Gran Abs 3.09 (H) 0.00 - 0.04 x10(3)/[facility] LABORATORY Specimen Anatomical Collection Method Collection Time Receive d Time (Source) Location / / Volume Laterality Blood 02/06/2022 3:48 AM 2 3:51 EDT AM EDT Resulting Agency Comment Spec In Lab Danielle Ramirez MD HEMATOLOGY ORDERABLES Performing Organization Address City/State/[place] [address] (ABNORMAL) Hemogram (02/06/2022 3:48 AM EDT) [facility] gist Method Time Signature WBC 19.5 (H) 4.0 - 9.5 [facility] x[facility](3[facility] LABORATORY RBC 2.27 (L) 4.58 - [facility] 5.54 [facility] x10(6)/[facility] LABORATORY Hemoglobin 6.9 (L) 13.7 - [facility] 16.5 g/dL [facility] Hematocrit 19.2 (L) 40.5 - [facility] 48.5 % [facility] MCV 84.6 82.9 - [facility] 93.1 [facility] LABORATORY MCH 30.4 27.5 - [facility] 32.1 pg [facility] MCHC 35.9 (H) 32.0 - [facility] g/dL [facility] Platelets 147 145 - 357 [facility] x10(3)/[facility] LABORATORY RDWSD 45.8 (H) 36.0 - [facility] 45.0 [facility] LABORATORY RDWCV 15.1 (H) 11.4 - [facility] MANDO 13.8 % [facility] LABORATORY MPV 9.4 7.6 - 12.9 [facility] nRBC % Auto 0.4 % [facility] LABORATORY nRBC Abs Auto 0.080 (H) 0.000 - JOS[facility] MANDO 0.000 [facility] x10(3)/[facility] LABORATORY Specimen Anatomical Collection Method Collection Time Receive d Time (Source) Location / / Volume Laterality Blood 02/06/2022 3:48 AM 2 3:51 EDT AM EDT Resulting Agency Comment Spec In Lab Danielle Ramirez MD HEMATOLOGY ORDERABLES Performing Organization Address City/State/[place] [address] (ABNORMAL) BLOOD GAS 2 ARTERIAL (02/06/2022 3:48 AM EDT) P athologist Signature pH Art 7.42 7.35 - [facility] 7.45 [facility] pCO2 Art 40 35 - 45 [facility] mmHg [facility] pO2 Art 36 85 - 104 [facility] (Critical) mmHg [facility] Comment: Noted by instrument mechanic weapons system. HCO3 Art 25.7 20.0 - 26.0 mmol/L [facility] LABORAT[facility] BE Art 1.3 -3.0 - 3.0 mmol/L [facility] LABORATORY Hgb Blood Gas 7.9 (L) 13.7 - 16.5 g/dL [facility] LABORATORY O2HB Art 73.5 (L) 94.0 - 97.0 % [facility] COHB Art 0.5 % [facility] LABORATORY Comment: Nonsmokers: 0.5-1.5% COHB Smokers: Variable, but usually less than 10% Toxic: 20-30% COHB Lethal: Greater than 60% COHB METHB Art 1.2 <=1.5 % [facility] LABORATORY Na Whole Blood 118 (Critical) 135 - 145 mmol/L [facility] Comment: Noted by instrument mechanic weapons system. K Whole Blood 5.2 (H) 3.5 - 5.0 mmol/L [facility] LABORATORY Comment: Please note: Patients with WBC >100,000 may have falsely elevated Potassium levels. Contact the Clinical Chemistry L aboratory if there are any questions. ICa Whole Blood 0.93 (L) 1.15 - 1.33 mmol/L [facility] Comment: Note: ??Total bilirubin higher than 20 m g/dL may lead to falsely low ionized calcium. CL Whole Blood 92 (L) 98 - 107 mmol/L [facility] LABORATORY Gluc Whole Bld 122 65 - 199 mg/dL [facility] LABORATORY Comment: Diabetes: >=200 mg/dL plus symp toms. Lactate WB 1.8 0.5 - 2.2 mmol/L [facility] LABOR[facility] Temp Art 37.0 Celsius [facility] LABORATORY Specimen Anatomical Collection Method Collection Time Receive d Time (Source) Location / / Volume Laterality Blood 02/06/2022 3:48 AM 2 3:48 EDT AM EDT Dunia Han DO CHEMISTRY ORDERABLES Performing Organization Address City/[facility]/[place] [address] Prepare RBC (02/06/2022 1:20 AM EDT) P athologist Signature Dispensed? Yes [facility] LABORATORY Specimen Anatomical Collection Method Collection Time Receive d Time (Source) Location / / Volume Laterality Blood 02/06/2022 1:20 AM 2 1:18 EDT AM EDT Dunia Han DO BLOOD BANK ORDERABLES Performing Organization Address City/[facility]/[place] [address] Fibrinogen (02/06/2022 12:50 AM EDT) P athologist Signature Fibrinogen 298 200 - 393 [facility] mg/dL [facility] Comment: A fibrinogen level >100 mg/dL is adequat e for hemostasis in most patients without underlying bleeding disorders. Specimen Anatomical Collection Method Collection Time Receive d Time (Source) Location / / Volume Laterality Blood 02/06/2022 12:50 02/06/2022 1:04 AM EDT AM EDT Resulting Agency Comment Spec In Lab Danielle Ramirez MD HEMATOLOGY ORDERABLES Performing Organization Address City/[facility]/[place] [address] (ABNORMAL) Prothrombin Time (02/06/2022 12:50 AM EDT) P athologist Signature PT 14.6 (H) 9.4 - 12.5 [facility] LABORATORY INR 1.3 [facility] LABORATORY Comment: An INR <2.0 indicates [...] Organization Address City/State/[place] [address] Platelet count (02/06/2022 12:50 AM EDT) P athologist Signature Platelets 202 145 - 357 [facility] x10(3)/[facility] LABORATORY Plat Immature 3.3 0.0 - 7.4 [facility] % % [facility] Comment: Limitation of the Immature Platelet Frac tion (IPF)-May be less reliable when the platelet count is less than 53c135/u L due to statistical imprecision. The IPF [...] in a decreased state of production. References: [employer] The Clinical Value of the Immature Platelet Fraction (IPF) in Cell Recovery Document Number [id number] 12/2010 [employer] The Role of the Imm ature Platelet Fraction (IPF) in the Differential Diagnosis of Thrombocytopen ia, Document MKT-10-1209 V05/07/14 P0514 Specimen Anatomical Collection Method Collection Time Receive d Time (Source) Location / / Volume Laterality Blood 02/06/2022 12:50 02/06/2022 1:04 AM EDT AM EDT Resulting Agency Comment Spec In Lab Danielle Ramirez MD HEMATOLOGY ORDERABLES Performing Organization Address City/State/[place] [address] (ABNORMAL) Hematocrit (02/06/2022 12:50 AM EDT) athologist Signature Hematocrit 13.3 (L) 40.5 - [facility] 48.5 % [facility] Specimen Anatomical Collection Method Collection Time Receive d Time (Source) Location / / Volume Laterality Blood 02/06/2022 12:50 02/06/2022 1:04 AM EDT AM EDT Resulting Agency Comment Spec In Lab Danielle Ramirez MD HEMATOLOGY ORDERABLES Performing Organization Address City/[facility]/[place] [address] (ABNORMAL) Hemoglobin (02/06/2022 12:50 AM EDT) athologist Signature Hemoglobin 4.8 13.7 - [facility] (Critical) 16.5 g/dL [facility] Comment: This result has been called to ALCIRA Lomas by Reymundo De Luna on 02 06 2022 at 0115, and has been read back. Specimen Anatomical Collection Method Collection Time Receive d Time (Source) Location / / Volume Laterality Blood 02/06/2022 12:50 02/06/2022 1:04 AM EDT AM EDT Resulting Agency Comment Spec In Lab Danielle Ramirez MD HEMATOLOGY ORDERABLES Performing Organization Address City/[facility]/ZIP Code Phon e Number [address] (ABNORMAL) Basic Metabolic Panel (non-fasting) (02/06/2022 12:50 AM EDT) athologist Signature Glucose Lvl 177 65 - 199 [facility] [place] mg/dL [facility] Comment: Diabetes: >=200 mg/dL plus symp toms BUN 42 (H) 10 - 20 mg/dL [facility] Creatinine 4.29 (H) 0.80 - 1.50 mg/dL [facility] LABORATORY Sodium 124 (L) 135 - 145 mmol/L [facility] LABOR[facility] Potassium 5.3 (H) 3.5 - 5.0 mmol/L [facility] Comment: Please note: ??Patients with WBC >100,00 0 may have falsely elevated Potassium levels. ??For accurate Potassium quantif ication in these patients send serum separator tube (gold top) for subsequent determinations. ??Contact the Clinical Chemistry Laboratory if there are any qu estions. Chloride 89 (L) 98 - 107 mmol/L [facility] CO2 24 22 - 31 mmol/L [facility] Anion Gap 11 5 - 15 mmol/L [facility] Calcium 6.5 (Critical) 8.5 - 10.5 mg/dL [facility] LABORATORY Comment: called by bm/read back by bon anton 02/06/22 0147 Estimated GFR 18 (L) >=60 mL/min/1.73 m?? [facility] Comment: This patient's estimated GFR [...] Organization Address City/State/ZIP Code Phon e Number [address] (ABNORMAL) Phosphorus (02/06/2022 12:50 AM EDT) P athologist Signature Phosphorus 6.5 (H) 2.5 - 4.5 [facility] MANDO mg/dL [facility]OR[facility]ORY Specimen Anatomical Collection Method Collection Time Receive d Time (Source) Location / / Volume Laterality Blood 02/06/2022 12:50 02/06/2022 1:04 AM EDT AM EDT Resulting Agency Comment Spec In Lab Gela Novak MD CHEMISTRY ORDERABLES Performing Organization Address City/State/ZIP Code Phon e Number [address] Magnesium (02/06/2022 12:50 AM EDT) P athologist Signature Magnesium 0.88 0.69 - 1.07 [facility] mmol/L [facility] Specimen Anatomical Collection Method Collection Time Receive d Time (Source) Location / / Volume Laterality Blood 02/06/2022 12:50 02/06/2022 1:04 AM EDT AM EDT Resulting Agency Comment Spec In Lab Gela Novak MD CHEMISTRY ORDERABLES Performing Organization Address City/State/ZIP Code Phon e Number [address] Transfuse thawed plasma (02/06/2022 12:30 AM EDT) Dunia Han DO NURSING TREATMENT ORDERAB LES - BLOOD ADMIN SCAN DOC: LAB (02/06/2022 12:00 AM EDT) Narrative 02/06/2022 12:00 AM EDT This result has an attachment that is no t available. Ordered by an unspecified provider. Scanning Provider MEDIA MGR SCAN EXT ORDR/RSLT Transfuse thawed plasma (02/05/2022 11:56 PM EDT) Dunia Gaines Atchinson DO NURSING TREATMENT ORDERAB LES - BLOOD ADMIN Transfuse thawed plasma (02/05/2022 11:11 PM EDT) Dunia Gaines Atchinson DO NURSING TREATMENT ORDERAB LES - BLOOD ADMIN (ABNORMAL) BLOOD GAS 2 VENOUS (02/05/2022 10:39 PM EDT) P athologist Signature pH Honor[place] 7.40 7.32 - [facility] 7.42 [facility] pCO2 [place] 34 (L) 41 - 51 [facility] mmHg [facility]AT[facility] pO2 Honorio 28 25 - 40 [facility] LABORATORY HCO3 Honorio 20.4 mmol/L [facility] BE Honorio -4.5 mmol/L [facility] Hgb Blood Gas 8.7 (L) 13.7 - [facility] 16.5 g/dL [facility] O2HB Honorio 60.3 % [facility] COHB Honorio 0.8 % [facility] Comment: Nonsmokers: 0.5-1.5% COHB Smokers: Variable, but usually less than 10% Toxic: 20-30% COHB Lethal: Greater than 60% COHB METHB Honorio 0.3 <=1.5 % [facility] Na Whole Blood 119 (Critical) 135 - 145 mmol/L [facility] Comment: Noted by instrument mechanic weapons system. K Whole Blood 5.3 (H) 3.5 - 5.0 mmol/L [facility]ORATORY Comment: Please note: Patients with WBC >100,000 may have falsely elevated Potassium levels. Contact the Clinical Chemistry L aboratory if there are any questions. ICa Whole Blood 0.95 (L) 1.15 - 1.33 mmol/L [facility] Comment: Note: ??Total bilirubin higher than 20 m g/dL may lead to falsely low ionized calcium. CL Whole Blood 93 (L) 98 - 107 mmol/L [facility] LABORATORY Gluc Whole Bld 163 65 - 199 mg/dL [facility] Comment: Diabetes: >=200 mg/dL plus symp toms Lactate WB 1.8 0.5 - 2.2 mmol/L [facility] LABOR[facility] BGas Source Venous [facility] Specimen Anatomical Collection Method Collection Time Receive d Time (Source) Location / / Volume Laterality Blood 02/05/2022 10:39 02/05/2022 PM EDT 10:39 PM EDT Dunia Han DO CHEMISTRY ORDERABLES Performing Organization Address City/State/[place] [address] Transfuse RBC (02/05/2022 10:34 PM EDT) Dilcia Lopez MD NURSING TREATMENT ORDERABLES - BLOOD ADMIN Transfuse RBC (02/05/2022 10:34 PM EDT) Dilcia Lopez MD NURSING TREATMENT ORDERABLES - BLOOD ADMIN (ABNORMAL) Hepatic Function Panel (02/05/2022 9:54 PM EDT) P athologist Signature Total Protein 3.2 (L) 6.1 - 8.0 [facility] g/dL [facility] Albumin 1.4 (L) 3.2 - 5.2 [facility] g/dL [facility] AST 21 0 - 39 [facility] M[facility]O unit/L [facility] ALT <5 0 - 55 [facility] unit/L [facility] Alk Phos 74 40 - 130 [facility] unit/L [facility] Total 0.4 0.2 - 1.3 [facility] Bilirubin mg/dL [facility] Bili, Direct 0.3 0.0 - 0.3 [facility] mg/dL [facility] Specimen Anatomical Collection Method Collection Time Receive d Time (Source) Location / / Volume Laterality Blood 02/05/2022 9:54 PM EDT 10:31 PM EDT Resulting Agency Comment Spec In Lab Dunia Han DO CHEMISTRY ORDERABLES Performing Organization Address City/State/[place] [address] (ABNORMAL) Basic Metabolic Panel (non-fasting) (02/05/2022 9:54 PM EDT) P athologist Signature Glucose Lvl 161 65 - 199 [facility] mg/dL [facility] Comment: Diabetes: >=200 mg/dL plus symp toms BUN 41 (H) 10 - 20 mg/dL [facility] Creatinine 4.29 (H) 0.80 - 1.50 mg/dL [facility] Sodium 123 (L) 135 - 145 mmol/L [facility] Potassium 5.7 (H) 3.5 - 5.0 mmol/L [facility] Comment: Please note: ??Patients with WBC >100,00 0 may have falsely elevated Potassium levels. ??For accurate Potassium quantif ication in these patients send serum separator tube (gold top) for subsequent determinations. ??Contact the Clinical Chemistry Laboratory if there are any qu estions. Chloride 92 (L) 98 - 107 mmol/L [facility] CO2 23 22 - 31 mmol/L [facility] Anion Gap 8 5 - 15 mmol/L [facility] Calcium 6.2 (Critical) 8.5 - 10.5 mg/dL [facility] Comment: called by bm/read back by bon anton 02/05/22 [id number] Estimated GFR 18 (L) >=60 mL/min/1.73 m?? [facility] Comment: This patient's estimated GFR [...] Organization Address City/State/[place] [address] Transfuse RBC (02/05/2022 9:25 PM EDT) Dilcia Lopez MD NURSING TREATMENT ORDERABLES - BLOOD ADMIN Transfuse RBC (02/05/2022 9:25 PM EDT) Dilcia Lopez MD NURSING TREATMENT ORDERABLES - BLOOD ADMIN Prepare thawed plasma (02/05/2022 9:10 PM EDT) P athologist Signature Dispensed? Yes [facility] Specimen Anatomical Collection Method Collection Time Receive d Time (Source) Location / / Volume Laterality Blood 02/05/2022 9:10 PM 9:08 EDT PM EDT Dilcia Lopez MD BLOOD BANK ORDERABLES Performing Organization Address City/State/[place] [address] Transfuse RBC (02/05/2022 8:58 PM EDT) Dilcia Lopez MD NURSING TREATMENT ORDERABLES - BLOOD ADMIN Transfuse RBC (02/05/2022 8:58 PM EDT) Dilcia Lopez MD NURSING TREATMENT ORDERABLES - BLOOD ADMIN Prepare RBC (02/05/2022 8:50 PM EDT) P athologist Signature Dispensed? Yes [facility] Specimen Anatomical Collection Method Collection Time Receive d Time (Source) Location / / Volume Laterality Blood 02/05/2022 8:50 PM 8:50 EDT PM EDT Dilcia Lopez MD BLOOD BANK ORDERABLES Performing Organization Address City/State/ZIP Code Phon e Number [address] Prepare RBC (02/05/2022 8:40 PM EDT) P athologist Signature Dispensed? Yes [facility] Specimen Anatomical Collection Method Collection Time Receive d Time (Source) Location / / Volume Laterality Blood 02/05/2022 8:40 PM 07/08/202 2 8:38 EDT PM EDT Dilcia Lopez MD BLOOD BANK ORDERABLES Performing Organization Address City/State/[place] [address] (ABNORMAL) Prothrombin Time (02/05/2022 8:35 PM EDT) P athologist Signature PT 56.2 (H) 9.4 - 12.5 [facility] LABORATORY INR 4.9 [facility] Comment: An INR <2.0 indicates [...] Lopez MD HEMATOLOGY ORDERABLES Performing Organization Address City/[facility]/[place] [address] Fibrinogen (02/05/2022 8:35 PM EDT) P athologist Signature Fibrinogen 314 200 - 393 [facility] mg/dL [facility] Comment: A fibrinogen level >100 mg/dL is adequat e for hemostasis in most patients without underlying bleeding disorders. Specimen Anatomical Collection Method Collection Time Receive d Time (Source) Location / / Volume Laterality Blood 02/05/2022 8:35 PM 2 8:45 EDT PM EDT Resulting Agency Comment Spec In Lab Dilcia Lopez MD HEMATOLOGY ORDERABLES Performing Organization Address City/[facility]/[place] [address] Prepare RBC (02/05/2022 7:55 PM EDT) P athologist Signature Dispensed? Yes [facility] Specimen Anatomical Collection Method Collection Time Receive d Time (Source) Location / / Volume Laterality Blood 02/05/2022 7:55 PM 2 7:53 EDT PM EDT Dilcia Lopez MD BLOOD BANK ORDERABLES Performing Organization Address City/State/[place] [address] (ABNORMAL) Differential, Automated (02/05/2022 7:50 PM EDT) [facility] gist Method Time Signature Neutrophils % 66.9 % [facility] Neutr Abs (ANC) 15.42 (H) 1.70 - [facility] [place] 6.10 [facility] x10(3)/[facility] LABORATORY Lymphocytes % 9.1 % [facility] Lymphocytes Abs 2.1 0.9 - 3.2 [facility] [place] x10(3)/[facility] LABORATORY Monocytes % 11.5 % [facility] Monocyte Abs 2.7 (H) 0.3 - 0.9 [facility] [place] x10(3)/[facility] LABORATORY Eosinophils % 0.4 % [facility] Eosinophils Abs 0.1 0.0 - 0.4 [facility] [place] x10(3)/[facility] LABORATORY Basophils % 0.3 % [facility] Basophils Abs 0.1 0.0 - 0.1 [facility] [place] x10(3)/[facility] LABORATORY Immature Gran % 11.80 % [facility] Comment: Immature granulocytes(IG's)percentage an d absolute count will include metamyelocytes, myelocytes, and promyelo cytes. Blood smears from CBCs yielding IG's will be scanned manually for concor dance. If this scan disagrees with the automated IG or if promyelocytes are not ed, a manual differential will be performed. Gemini Gran Abs 2.73 (H) 0.00 - 0.04 x10(3)/[facility] LABORATORY Specimen Anatomical Collection Method Collection Time Receive d Time (Source) Location / / Volume Laterality Blood 02/05/2022 7:50 PM 8:09 EDT PM EDT Resulting Agency Comment Spec In Lab Dilcia Lopez MD HEMATOLOGY ORDERABLES Performing Organization Address City/State/[place] [address] (ABNORMAL) Hemogram (02/05/2022 7:50 PM EDT) P athologist Signature WBC 23.1 (H) 4.0 - 9.5 [facility] [place] x10(3)/[facility] LABORATORY RBC 1.62 (L) 4.58 - [facility] [place] 5.54 [facility] x10(6)/[facility] LABORATORY Hemoglobin 4.9 13.7 - [facility] [place] (Critical) 16.5 g/dL [facility] Comment: This result has been called to SHAHEEN GARZA by Graciela Sherman on 02 05 2022 at 2034, and has been read back. Hematocrit 13.7 (L) 40.5 - 48.5 % [facility] MCV 84.6 82.9 - 93.1 [facility] Comment: This result has been called to SHAHEEN GARZA by Graciela Sherman on 02 05 2022 at 2034, and has been read back. MCH 30.2 27.5 - 32.1 pg [facility] MCHC 35.8 (H) 32.0 - 35.7 g/dL [facility] Platelets 266 145 - 357 x10(3)/[facility] LABORATORY RDWSD 46.3 (H) 36.0 - 45.0 [facility] LABORATORY RDWCV 15.8 (H) 11.4 - 13.8 % [facility] MPV 10.2 7.6 - 12.9 [facility] LABORATORY nRBC % Auto 0.1 % [facility] nRBC Abs Auto 0.030 (H) 0.000 - 0.000 x10(3)/[facility] LABORATORY Specimen Anatomical Collection Method Collection Time Receive d Time (Source) Location / / Volume Laterality Blood 02/05/2022 7:50 PM 2 8:09 EDT PM EDT Resulting Agency Comment Spec In Lab Dilcia Lopez MD HEMATOLOGY ORDERABLES Performing Organization Address City/[facility]/[place] [address] Blood culture (02/05/2022 6:41 PM EDT) Patholo gist Method Time Signature Blood Culture No growth JOSH GILMORE at 5 days. [facility] Specimen Anatomical Collection Method Collection Time Receive d Time (Source) Location / / Volume Laterality Blood 02/05/2022 6:41 PM 2 8:46 EDT PM EDT Comment: R FA Resulting Agency Comment Spec In Lab Dilcia Lopez MD MICROBIOLOGY - BLOOD ORDERAB LES Performing Organization Address City/[facility]/[place] [address] (ABNORMAL) Hemoglobin (02/05/2022 5:20 PM EDT) P athologist Signature Hemoglobin 7.1 (L) 13.7 - 16.5 [facility] g/dL [facility] Specimen Anatomical Collection Method Collection Time Receive d Time (Source) Location / / Volume Laterality Blood 02/05/2022 5:20 PM 2 5:30 EDT PM EDT Resulting Agency Comment Spec In Lab Dilcia Lopez MD HEMATOLOGY ORDERABLES Performing Organization Address City/[facility]/[place] [address] Prepare RBC (02/05/2022 2:20 PM EDT) P athologist Signature Dispensed? Yes [facility] Specimen Anatomical Collection Method Collection Time Receive d Time (Source) Location / / Volume Laterality Blood 02/05/2022 2:20 PM 2 2:16 EDT PM EDT Tom Valdovinos MD BLOOD BANK ORDERABLES Performing Organization Address City/[facility]/[place] [address] (ABNORMAL) Hemoglobin (02/05/2022 9:30 AM EDT) P athologist Signature Hemoglobin 7.0 (L) 13.7 - 16.5 [facility] [place] g/dL [facility] Specimen Anatomical Collection Method Collection Time Receive d Time (Source) Location / / Volume Laterality Blood 02/05/2022 9:30 AM 9:39 EDT AM EDT Resulting Agency Comment Spec In Lab Dilcia Lopez MD HEMATOLOGY ORDERABLES Performing Organization Address City/State/ZIP Code Phon e Number [address] Transfuse RBC (02/05/2022 6:54 AM EDT) Coty Walton MD NURSING TREATMENT ORDERABLES - BLOOD ADMIN Transfuse RBC (02/05/2022 6:54 AM EDT) Coty Walton MD NURSING TREATMENT ORDERABLES - BLOOD ADMIN Transfuse RBC (02/05/2022 5:07 AM EDT) Coty Walton MD NURSING TREATMENT ORDERABLES - BLOOD ADMIN Prepare RBC (02/05/2022 2:35 AM EDT) athologist Signature Dispensed? Yes [facility] Specimen Anatomical Collection Method Collection Time Receive d Time (Source) Location / / Volume Laterality Blood 02/05/2022 2:35 AM 2 2:34 EDT AM EDT Coty Walton MD BLOOD BANK ORDERABLES Performing Organization Address City/[facility]/ZIP Code Phon e Number [address] Type and Screen Validity (02/05/2022 1:50 AM EDT) [facility] Method Time Signature T&S only valid [facility] Comment: This Type and Screen result is only valid at the [facility] Specimen Anatomical Collection Method Collection Time Receive d Time (Source) Location / / Volume Laterality Blood 02/05/2022 1:50 AM 2 2:08 EDT AM EDT Resulting Agency Comment Spec In Lab Coty Walton MD BLOOD BANK ORDERABLES Performing Organization Address City/State/ZIP Code Phon e Number [address] ABORH Recheck Status (02/05/2022 1:50 AM EDT) [facility] Method Time Signature ABORH Type Completed [facility] LABORATORY Specimen Anatomical Collection Method Collection Time Receive d Time (Source) Location / / Volume Laterality Blood 02/05/2022 1:50 AM 2 2:08 EDT AM EDT Resulting Agency Comment Spec In Lab Coty Walton MD BLOOD BANK ORDERABLES Performing Organization Address City/[facility]/[place] [address] Antibody screen (02/05/2022 1:50 AM EDT) [facility] Method Time Signature Ab Screen Negative [facility] LABORATORY Expires at 02/08/2022 [facility] [place] [address] on: [facility] Specimen Anatomical Collection Method Collection Time Receive d Time (Source) Location / / Volume Laterality Blood 02/05/2022 1:50 AM 2 2:08 EDT AM EDT Resulting Agency Comment Spec In Lab Coty Walton MD BLOOD BANK ORDERABLES Performing Organization Address City/[facility]/[place] [address] ABO/Rh Typing (02/05/2022 1:50 AM EDT) P athologist Signature ABORh Type A Pos [facility] Specimen Anatomical Collection Method Collection Time Receive d Time (Source) Location / / Volume Laterality Blood 02/05/2022 1:50 AM 2 2:08 EDT AM EDT Resulting Agency Comment Spec In Lab Coty Walton MD BLOOD BANK ORDERABLES Performing Organization Address City/State/[place] [address] (ABNORMAL) Differential, Automated (02/05/2022 12:56 AM EDT) Patholo gist Method Time Signature Neutrophils % 71.9 % [facility] Neutr Abs (ANC) 21.60 (H) 1.70 - [facility] [place] 6.10 [facility] x10(3)/[facility] LABORATORY Lymphocytes % 8.3 % [facility] Lymphocytes Abs 2.5 0.9 - 3.2 [facility] [place] x10(3)/[facility] LABORATORY Monocytes % 8.8 % [facility] Monocyte Abs 2.6 (H) 0.3 - 0.9 [facility] [place] x10(3)/[facility] LABORATORY Eosinophils % 0.4 % [facility] Eosinophils Abs 0.1 0.0 - 0.4 [facility] x10(3)/[facility] LABORATORY Basophils % 0.3 % [facility] Basophils Abs 0.1 0.0 - 0.1 [facility] [place] x10(3)/[facility] LABORATORY Immature Gran % 10.30 % [facility] Comment: Immature granulocytes(IG's)percentage an d absolute count will include metamyelocytes, myelocytes, and promyelo cytes. Blood smears from CBCs yielding IG's will be scanned manually for concor dance. If this scan disagrees with the automated IG or if promyelocytes are not ed, a manual differential will be performed. Gemini Gran Abs 3.11 (H) 0.00 - 0.04 x10(3)/[facility] LABORATORY Specimen Anatomical Collection Method Collection Time Receive d Time (Source) Location / / Volume Laterality Blood 02/05/2022 12:56 02/05/2022 1:20 AM EDT AM EDT Resulting Agency Comment Spec In Lab Dilcia Lopez MD HEMATOLOGY ORDERABLES Performing Organization Address City/State/[place] [address] (ABNORMAL) Hemogram (02/05/2022 12:56 AM EDT) P athologist Signature WBC 30.1 4.0 - 9.5 [facility] [place] (Critical) x10(3)/[facility]ATORY Comment: This result has been called to WILLIE PAYNE by GAMA THOMPSON on 02 05 2022 at 0137, and has been read back. RBC 1.61 (L) 4.58 - 5.54 x10(6)/[facility] LABORATORY Hemoglobin 5.2 (Critical) 13.7 - 16.5 g/dL [facility] Comment: This result has been called to WILLIE PAYNE by GAMA THOMPSON on 02 05 2022 at 0137, and has been read back. Hematocrit 14.8 (L) 40.5 - 48.5 % [facility] MCV 91.9 82.9 - 93.1 [facility] LABORATORY MCH 32.3 (H) 27.5 - 32.1 pg [facility] MCHC 35.1 32.0 - 35.7 g/dL [facility] Platelets 363 (H) 145 - 357 x10(3)/[facility] LABORATORY RDWSD 47.0 (H) 36.0 - 45.0 [facility] LABORATORY RDWCV 14.8 (H) 11.4 - 13.8 % [facility] MPV 10.3 7.6 - 12.9 [facility] LABORATORY nRBC % Auto 0.1 % [facility] nRBC Abs Auto 0.020 (H) 0.000 - 0.000 x10(3)/[facility] LABORATORY Specimen Anatomical Collection Method Collection Time Receive d Time (Source) Location / / Volume Laterality Blood 02/05/2022 12:56 02/05/2022 1:20 AM EDT AM EDT Resulting Agency Comment Spec In Lab Dilcia Lopez MD HEMATOLOGY ORDERABLES Performing Organization Address City/State/[place] [address] (ABNORMAL) Basic Metabolic Panel (non-fasting) (02/05/2022 12:56 AM EDT) athologist Signature Glucose Lvl 125 65 - 199 [facility] [place] mg/dL [facility] Comment: Diabetes: >=200 mg/dL plus symp toms BUN 49 (H) 10 - 20 mg/dL [facility] Creatinine 4.98 (H) 0.80 - 1.50 mg/dL [facility] Sodium 122 (L) 135 - 145 mmol/L [facility] Potassium 5.9 (H) 3.5 - 5.0 mmol/L [facility] Comment: Please note: ??Patients with WBC >100,00 0 may have falsely elevated Potassium levels. ??For accurate Potassium quantif ication in these patients send serum separator tube (gold top) for subsequent determinations. ??Contact the Clinical Chemistry Laboratory if there are any qu estions. Chloride 90 (L) 98 - 107 mmol/L [facility] CO2 24 22 - 31 mmol/L [facility] Anion Gap 8 5 - 15 mmol/L [facility] Calcium 6.4 (Critical) 8.5 - 10.5 mg/dL [facility] Comment: Called by: wesley, Read back by: Jesus Whittaker, Date/Time:02/05/22 02:07. Estimated GFR 15 (L) >=60 mL/min/1.73 m?? [facility] Comment: This patient's estimated GFR [...] Han DO CHEMISTRY ORDERABLES Performing Organization Address City/[facility]/ZIP Code Phon e Number [address] (ABNORMAL) Phosphorus (02/05/2022 12:56 AM EDT) P athologist Signature Phosphorus 7.1 (H) 2.5 - 4.5 [facility] [place] mg/dL [facility] Specimen Anatomical Collection Method Collection Time Receive d Time (Source) Location / / Volume Laterality Blood 02/05/2022 12:56 02/05/2022 1:20 AM EDT AM EDT Resulting Agency Comment Spec In Lab Gela Novak MD CHEMISTRY ORDERABLES Performing Organization Address City/[facility]/[place] [address] Magnesium (02/05/2022 12:56 AM EDT) P athologist Signature Magnesium 0.84 0.69 - 1.07 [facility] [place] mmol/L [facility] Specimen Anatomical Collection Method Collection Time Receive d Time (Source) Location / / Volume Laterality Blood 02/05/2022 12:56 02/05/2022 1:20 AM EDT AM EDT Resulting Agency Comment Spec In Lab Gela Novak MD CHEMISTRY ORDERABLES Performing Organization Address City/[facility]/ZIP [facility] [place] [address] (ABNORMAL) BLOOD GAS 2 VENOUS (02/04/2022 6:43 PM EDT) P athologist Signature pH Honorio 7.34 7.32 - [facility] [place] 7.42 [facility] pCO2 Honorio 43 41 - 51 [facility] LABORATORY pO2 Honorio 34 25 - 40 [facility] LABORATORY HCO3 Honorio 22.6 mmol/L [facility] BE Honorio -3.2 mmol/L [facility] Hgb Blood Gas 7.4 (L) 13.7 - [facility] 16.5 g/dL [facility] O2HB Honorio 58.9 % [facility] COHB Honorio 1.8 % [facility] Comment: Nonsmokers: 0.5-1.5% COHB Smokers: Variable, but usually less than 10% Toxic: 20-30% COHB Lethal: Greater than 60% COHB METHB Honorio 0.3 <=1.5 % [facility] Na Whole Blood 118 (Critical) 135 - 145 mmol/L [facility] K Whole Blood 5.2 (H) 3.5 - 5.0 mmol/L [facility] Comment: Please note: Patients with WBC >100,000 may have falsely elevated Potassium levels. Contact the Clinical Chemistry L aboratory if there are any questions. ICa Whole Blood 0.99 (L) 1.15 - 1.33 mmol/L [facility] Comment: Note: ??Total bilirubin higher than 20 m g/dL may lead to falsely low ionized calcium. CL Whole Blood 92 (L) 98 - 107 mmol/L [facility] Gluc Whole Bld 100 65 - 199 mg/dL [facility] Comment: Diabetes: >=200 mg/dL plus symp toms Lactate WB 1.5 0.5 - 2.2 mmol/L [facility] BGas Source Venous [facility] Specimen Anatomical Collection Method Collection Time Receive d Time (Source) Location / / Volume Laterality Blood 02/04/2022 6:43 PM 6:43 EDT PM EDT Dilcia Lopez MD CHEMISTRY ORDERABLES Performing Organization Address City/State/[place] [address] Trichomonas Gene Amp ([facility]/CGP/APD/NLH) Urine (02/04/2022 4:20 PM EDT) Analysis Performed At [facility] Time Signature Trich Gene Amp Negative Negative [facility] Comment: The only FDA approved specimen types for this assay are cervix and vaginal. Trich Source Urine [facility] Specimen Anatomical Collection Method Collection Time Receive d Time (Source) Location / / Volume Laterality Urine 02/04/2022 4:20 PM 2 5:03 EDT PM EDT Resulting Agency Comment Spec In Lab Dilcia Lopez MD MICROBIOLOGY - GENERAL ORDER JT Performing Organization Address [facility]/ZIP [facility] Phon e [address] Chlamydia Gene Amp ([facility]/CGP/APD/NLH) Urine (02/04/2022 4:20 PM EDT) Analysis Performed At Patho logist Time Signature Chlamydia Gene Negative Negative [facility] LABORATORY Comment: The only FDA approved specimen types for this assay are cervical, vaginal, urethral and urine. Non-FDA approved myriam rces are eye, throat and rectal and have been internally validated. Chlamydia Source Urine [facility] Specimen Anatomical Collection Method Collection Time Receive d Time (Source) Location / / Volume Laterality Urine 02/04/2022 4:20 PM 2 5:03 EDT PM EDT Resulting Agency Comment Spec In Lab Dilcia Lopez MD MICROBIOLOGY - GENERAL ORDER JT Performing Organization Address [facility] Code Phon e [address] GC Gene Amp ([facility]/CGP/APD/NLH) Urine (02/04/2022 4:20 PM EDT) P athologist Signature GC Gene Amp Negative Negative [facility] Comment: The only FDA approved specimen types for this assay are cervical, vaginal, urethral and urine. Non-FDA approved myriam rces are eye, throat and rectal and have been internally validated. GC Source Urine [facility] Specimen Anatomical Collection Method Collection Time Receive d Time (Source) Location / / Volume Laterality Urine 02/04/2022 4:20 PM 2 5:03 EDT PM EDT Resulting Agency Comment Spec In Lab Diclia Lopez MD MICROBIOLOGY - GENERAL ORDER JT Performing Organization Address City/State/[place] [address] EKG 12 Lead (02/04/2022 6:17 AM EDT) Component Value Ref Range Test Analysis Performed Pathologis t Method Time At Signature Ventricular rate 99 BPM MUSE SYSTEM Atrial Rate 99 BPM MUSE SYSTEM P-R Interval 146 ms MUSE SYSTEM QRS Duration 96 ms MUSE SYSTEM Q-T Interval 336 ms MUSE SYSTEM QTC Calculated 431 ms MUSE SYSTEM (Bezet) Calculated P [place] 37 degrees MUSE SYSTEM Calculated R [place] 16 degrees MUSE SYSTEM Calculated T [place] 14 degrees MUSE SYSTEM INTERPRETATION Normal sinus rhythm MUSE SYSTEM Normal ECG When compared with ECG of 30-JAN-2022 09:18, Nonspecific T wave abnormality, improved in Inferior leads Confirmed by Tucker Beard ([id number]) on 02/04/2022 5:25:0 4 PM Specimen Anatomical Collection Method Collection Time Receive d Time (Source) Location / / Volume Laterality 02/04/2022 6:17 AM 5:25 EDT PM EDT Candida Krishna MD ECG ORDERABLES Performing Organization Address City/[facility]/ZIP Code Phon e Number MUSE SYSTEM (ABNORMAL) Albumin Level (02/04/2022 4:21 AM EDT) P athologist Signature Albumin 1.7 (L) 3.2 - 5.2 [facility] g/dL [facility] Specimen Anatomical Collection Method Collection Time Receive d Time (Source) Location / / Volume Laterality Blood Venous Draw / 02/04/2022 4:21 AM 02/05/20 4:25 Unknown EDT AM EDT Resulting Agency Comment Spec In Lab Candida Krishna MD CHEMISTRY ORDERABLES Performing Organization Address City/[facility]/[place] [address] (ABNORMAL) Differential, Automated (02/04/2022 4:21 AM EDT) Patholo gist Method Time Signature Neutrophils % 71.7 % [facility] Neutr Abs (ANC) 22.88 (H) 1.70 - [facility] 6.10 [facility] x10(3)/[facility] L LABORATORY Lymphocytes % 8.4 % [facility] Lymphocytes Abs 2.7 0.9 - 3.2 [facility] x10(3)/[facility] LABORATORY Monocytes % 8.2 % [facility] Monocyte Abs 2.6 (H) 0.3 - 0.9 [facility] x10(3)/[facility] LABORATORY Eosinophils % 1.4 % [facility] Eosinophils Abs 0.4 0.0 - 0.4 [facility] x10(3)/[facility] LABORATORY Basophils % 0.6 % [facility] Basophils Abs 0.2 (H) 0.0 - 0.1 [facility] x10(3)/[facility] LABORATORY Immature Gran % 9.70 % [facility] Comment: Immature granulocytes(IG's)percentage an d absolute count will include metamyelocytes, myelocytes, and promyelo cytes. Blood smears from CBCs yielding IG's will be scanned manually for concor dance. If this scan disagrees with the automated IG or if promyelocytes are not ed, a manual differential will be performed. Gemini Gran Abs 3.09 (H) 0.00 - 0.04 x10(3)/[facility] LABORATORY Specimen Anatomical Collection Method Collection Time Receive d Time (Source) Location / / Volume Laterality Blood 02/04/2022 4:21 AM 4:24 EDT AM EDT Resulting Agency Comment Spec In Lab Dilcia Lopez MD HEMATOLOGY ORDERABLES Performing Organization Address City/State/[place] [address] (ABNORMAL) Hemogram (02/04/2022 4:21 AM EDT) P athologist Signature WBC 31.9 4.0 - 9.5 [facility] (Critical) x10(3)/[facility] LABORATORY Comment: This result has been called to NIKKI SANZ by Nicki Bazzi on 02 04 2022 at 0434, and has been read back. RBC 2.40 (L) 4.58 - 5.54 x10(6)/[facility] LABORATORY Hemoglobin 7.7 (L) 13.7 - 16.5 g/dL [facility]ORY Hematocrit 21.4 (L) 40.5 - 48.5 % [facility] MCV 89.2 82.9 - 93.1 fL [facility] MCH 32.1 27.5 - 32.1 pg [facility] MCHC 36.0 (H) 32.0 - 35.7 g/dL [facility] Platelets 303 145 - 357 x10(3)/[facility] LABORATORY RDWSD 46.1 (H) 36.0 - 45.0 [facility] LABORATORY RDWCV 14.6 (H) 11.4 - 13.8 % [facility] LABORATORY MPV 9.8 7.6 - 12.9 [facility] LABORATORY nRBC % Auto 0.0 % [facility] nRBC Abs Auto 0.000 0.000 - 0.000 x10(3)/[facility] LABORATORY Specimen Anatomical Collection Method Collection Time Receive d Time (Source) Location / / Volume Laterality Blood 02/04/2022 4:21 AM 4:24 EDT AM EDT Resulting Agency Comment Spec In Lab Dilcia Lopez MD HEMATOLOGY ORDERABLES Performing Organization Address City/State/[place] [address] (ABNORMAL) Basic Metabolic Panel (non-fasting) (02/04/2022 4:21 AM EDT) athologist Signature Glucose Lvl 100 65 - 199 [facility] mg/dL [facility] Comment: Diabetes: >=200 mg/dL plus symp toms BUN 64 (H) 10 - 20 mg/dL [facility] Creatinine 5.55 (H) 0.80 - 1.50 mg/dL [facility] Comment: result rechecked-KEYUR Sodium 120 (L) 135 - 145 mmol/L [facility] Potassium 5.7 (H) 3.5 - 5.0 mmol/L [facility] Comment: Please note: ??Patients with WBC >100,00 0 may have falsely elevated Potassium levels. ??For accurate Potassium quantif ication in these patients send serum separator tube (gold top) for subsequent determinations. ??Contact the Clinical Chemistry Laboratory if there are any qu estions. Chloride 91 (L) 98 - 107 mmol/L [facility] CO2 19 (L) 22 - 31 mmol/L [facility] Anion Gap 10 5 - 15 mmol/L [facility] Calcium 6.3 (Critical) 8.5 - 10.5 mg/dL [facility] Comment: called by KEYUR/read back by Yessi Esteves / 02/04/22 0513 Estimated GFR 13 (L) >=60 mL/min/1.73 m?? [facility] Comment: This patient's estimated GFR [...] Organization Address City/State/[place] [address] (ABNORMAL) Phosphorus (02/04/2022 4:21 AM EDT) P athologist Signature Phosphorus 7.5 (H) 2.5 - 4.5 [facility] mg/dL [facility] Specimen Anatomical Collection Method Collection Time Receive d Time (Source) Location / / Volume Laterality Blood 02/04/2022 4:21 AM 2 4:24 EDT AM EDT Resulting Agency Comment Spec In Lab Gela Novak MD CHEMISTRY ORDERABLES Performing Organization Address City/[facility]/ZIP Code Phon e Number [address] Magnesium (02/04/2022 4:21 AM EDT) athologist Signature Magnesium 0.88 0.69 - 1.07 [facility] mmol/L [facility] Specimen Anatomical Collection Method Collection Time Receive d Time (Source) Location / / Volume Laterality Blood 02/04/2022 4:21 AM 2 4:24 EDT AM EDT Resulting Agency Comment Spec In Lab Gela Novak MD CHEMISTRY ORDERABLES Performing Organization Address City/[facility] Code Phon e Number [address] Transfuse RBC (02/03/2022 6:36 PM EDT) Dilcia Lopez MD NURSING TREATMENT ORDERABLES - BLOOD ADMIN Transfuse RBC (02/03/2022 6:36 PM EDT) Dilcia Lopez MD NURSING TREATMENT ORDERABLES - BLOOD ADMIN POCT Glucose (02/03/2022 3:40 PM EDT) athologist Signature POC Glucose 127 65 - 199 [facility] mg/dL [facility] Comment: Supplemental ranges: <140 mg/dL before meals <180 mg/dL all other times of the day Specimen Anatomical Collection Method Collection Time Receive d Time (Source) Location / / Volume Laterality Blood 02/03/2022 3:40 PM 2 3:40 EDT PM EDT Dilcia Lopez MD POINT OF CARE TEST ORDERABLE S Performing Organization Address City/[facility]/ZIP Code Phon e Number [address] Prepare RBC (02/03/2022 3:20 PM EDT) athologist Signature Dispensed? No [facility] Specimen Anatomical Collection Method Collection Time Receive d Time (Source) Location / / Volume Laterality Blood 02/03/2022 3:20 PM 2 3:19 EDT PM EDT Dilcia Lopez MD BLOOD BANK ORDERABLES Performing Organization Address City/State/[place] [address] (ABNORMAL) Hemogram (02/03/2022 2:15 PM EDT) athologist Signature WBC 30.1 4.0 - 9.5 [facility] (Critical) x10(3)/[facility] LABORATORY Comment: This result has been called to VINOD WILCOX by Sarah Robison on 02 03 2022 at 1432, and has been read ba ck. RBC 2.14 (L) 4.58 - 5.54 x10(6)/[facility] LABORATORY Hemoglobin 6.8 (L) 13.7 - 16.5 g/dL [facility] Hematocrit 19.4 (L) 40.5 - 48.5 % [facility] MCV 90.7 82.9 - 93.1 [facility] LABORATORY MCH 31.8 27.5 - 32.1 pg [facility] MCHC 35.1 32.0 - 35.7 g/dL [facility] Platelets 333 145 - 357 x10(3)/[facility] LABORATORY RDWSD 45.9 (H) 36.0 - 45.0 [facility] LABORATORY RDWCV 14.2 (H) 11.4 - 13.8 % [facility] MPV 10.0 7.6 - 12.9 [facility] LABORATORY nRBC % Auto 0.0 % [facility] nRBC Abs Auto 0.000 0.000 - 0.000 x10(3)/mcL M [facility] LABORATORY Specimen Anatomical Collection Method Collection Time Receive d Time (Source) Location / / Volume Laterality Blood 02/03/2022 2:15 PM 2:21 EDT PM EDT Resulting Agency Comment Spec In Lab Dilcia Lopez MD HEMATOLOGY ORDERABLES Performing Organization Address City/State/ZIP Code Phon e Number [address] Transfuse RBC (02/03/2022 11:43 AM EDT) Raimundo Lara MD NURSING TREATMENT ORDER JT - BLOOD ADMIN Transfuse RBC (02/03/2022 11:43 AM EDT) Raimundo Lara MD NURSING TREATMENT ORDER JT - BLOOD ADMIN POCT Glucose (02/03/2022 11:42 AM EDT) P athologist Signature POC Glucose 129 65 - 199 [facility] mg/dL [facility] Comment: Supplemental ranges: <140 mg/dL before meals <180 mg/dL all other times of the day Specimen Anatomical Collection Method Collection Time Receive d Time (Source) Location / / Volume Laterality Blood 02/03/2022 11:42 02/03/2022 AM EDT 11:42 AM EDT Erika Retana MD POINT OF CARE TEST ORDERABLE S Performing Organization Address City/State/[place] [address] Duplex for DVT, Arm, Unilat (02/03/2022 9:07 AM EDT) Component Value Ref Test Analysis Performed At Patholo gist Range Method Time Signature VB Text Department: Vascular Surgery Lab VASCUBASE Report Patient: [id number] (ALIX HOLLAND) CPT: 32455 Referring Physician: AGNIESZKA LÓPEZ ?? Phone: Indications: [...] Component Value Ref Test Analysis Performed At [facility] [employer] Range Method Time Signature VB Text Department: Vascular Surgery Lab VASCUBASE Report Patient: [id number] (ALIX HOLLAND) CPT: 84852 Referring Physician: AGNIESZKA LÓPEZ ?? Phone: Indications: [...] Signature POC Glucose 128 65 - 199 [facility] mg/dL [facility] Comment: Supplemental ranges: <140 mg/dL before meals <180 mg/dL all other times of the day Specimen Anatomical Collection Method Collection Time Receive d Time (Source) Location / / Volume Laterality Blood 02/03/2022 8:17 AM 8:17 EDT AM EDT Erika Retana MD POINT OF CARE TEST ORDERABLE S Performing Organization Address City/State/[place] [address] Prepare RBC (02/03/2022 7:51 AM EDT) athologist Signature Dispensed? Yes [facility] Specimen Anatomical Collection Method Collection Time Receive d Time (Source) Location / / Volume Laterality Blood No Charge / 02/03/2022 7:51 AM 2 7:51 Unknown EDT AM EDT Resulting Agency Comment Spec In Lab Raimundo Lara MD BLOOD BANK ORDERABLES Performing Organization Address City/[facility]/[place] [address] Prepare RBC (02/03/2022 7:45 AM EDT) athologist Signature Dispensed? Yes [facility] Specimen Anatomical Collection Method Collection Time Receive d Time (Source) Location / / Volume Laterality Blood 02/03/2022 7:45 AM 2 7:42 EDT AM EDT Raimundo Lara MD BLOOD BANK ORDERABLES Performing Organization Address [facility] [place] [address] (ABNORMAL) Hemoglobin and Hematocrit, blood (02/03/2022 6:47 AM EDT) P athologist Signature Hemoglobin 5.6 13.7 - [facility] (Critical) 16.5 g/dL [facility] Comment: This result has been called to EMANI HESS by Sarah Robison on 02 03 2022 at 0738, and has been read back. Hematocrit 16.0 (L) 40.5 - 48.5 % [facility] Specimen Anatomical Collection Method Collection Time Receive d Time (Source) Location / / Volume Laterality Blood 02/03/2022 6:47 AM 2 7:05 EDT AM EDT Resulting Agency Comment Spec In Lab Raimundo Lara MD HEMATOLOGY ORDERABLES Performing Organization Address City/[facility]/ZIP [facility] Phon e Number [address] Scan, Peripheral Blood (02/03/2022 4:55 AM EDT) Patholo gist Method Time Signature Plat Estimate Normal [facility] RBC Morphology Abnormal [facility] Macrocytes 1-5 /HPF [facility] Microcytes 1-5 /HPF [facility] Stippled RBCs Present >1/HPF [facility] Specimen Anatomical Collection Method Collection Time Receive d Time (Source) Location / / Volume Laterality Blood 02/03/2022 4:55 AM 5:09 EDT AM EDT Resulting Agency Comment Spec In Lab Dimas Hernandez MD HEMATOLOGY ORDERABLES Performing Organization Address City/State/[place] [address] (ABNORMAL) Differential, Automated (02/03/2022 4:55 AM EDT) [facility] Method Time Signature Neutrophils % 68.7 % [facility] Neutr Abs (ANC) 21.19 (H) 1.70 - [facility] 6.10 [facility] x10(3)/[facility] LABORATORY Lymphocytes % 10.5 % [facility] Lymphocytes Abs 3.2 0.9 - 3.2 [facility] x10(3)/[facility] LABORATORY Monocytes % 8.7 % [facility] Monocyte Abs 2.7 (H) 0.3 - 0.9 [facility] x10(3)/[facility] LABORATORY Eosinophils % 1.6 % [facility] Eosinophils Abs 0.5 (H) 0.0 - 0.4 [facility] x10(3)/[facility] LABORATORY Basophils % 0.3 % [facility] Basophils Abs 0.1 0.0 - 0.1 [facility] x10(3)/[facility] LABORATORY Immature Gran % 10.20 % [facility] Comment: Immature granulocytes(IG's)percentage an d absolute count will include metamyelocytes, myelocytes, and promyelo cytes. Blood smears from CBCs yielding IG's will be scanned manually for concor dance. If this scan disagrees with the automated IG or if promyelocytes are not ed, a manual differential will be performed. Gemini Gran Abs 3.13 (H) 0.00 - 0.04 x10(3)/[facility] LABORATORY Specimen Anatomical Collection Method Collection Time Receive d Time (Source) Location / / Volume Laterality Blood 02/03/2022 4:55 AM 5:09 EDT AM EDT Resulting Agency Comment Spec In Lab Dimas Hernandez MD HEMATOLOGY ORDERABLES Performing Organization Address City/State/[place] [address] (ABNORMAL) Hemogram (02/03/2022 4:55 AM EDT) athologist Signature WBC 30.8 4.0 - 9.5 [facility] (Critical) x10(3)/[facility] LABORATORY Comment: This result has been called to HALLEY HO by Maureen Dixon on 02 03 2022 at 0555, and has been read back. RBC 1.72 (L) 4.58 - 5.54 x10(6)/[facility] LABORATORY Hemoglobin 5.6 (Critical) 13.7 - 16.5 g/dL [facility]ORY Comment: This result has been called to HALLEY HO by Maureen Dixon on 02 03 2022 at 0555, and has been read back. Hematocrit 15.9 (L) 40.5 - 48.5 % [facility] MCV 92.4 82.9 - 93.1 fL [facility] MCH 32.6 (H) 27.5 - 32.1 pg [facility] MCHC 35.2 32.0 - 35.7 g/dL [facility] LABOR[facility] Platelets 310 145 - 357 x10(3)/[facility] LABORATORY RDWSD 45.4 (H) 36.0 - 45.0 [facility] LABORATORY RDWCV 14.2 (H) 11.4 - 13.8 % [facility] MPV 10.2 7.6 - 12.9 [facility] LABORATORY nRBC % Auto 0.0 % [facility] nRBC Abs Auto 0.000 0.000 - 0.000 x10(3)/mcL M [facility] LABORATORY Specimen Anatomical Collection Method Collection Time Receive d Time (Source) Location / / Volume Laterality Blood 02/03/2022 4:55 AM 2 5:09 EDT AM EDT Resulting Agency Comment Spec In Lab Dimas Hernandez MD HEMATOLOGY ORDERABLES Performing Organization Address City/State/[place] [address] (ABNORMAL) Basic Metabolic Panel (non-fasting) (02/03/2022 4:55 AM EDT) athologist Signature Glucose Lvl 117 65 - 199 [facility] mg/dL [facility] Comment: Diabetes: >=200 mg/dL plus symp toms BUN 53 (H) 10 - 20 mg/dL [facility] Creatinine 4.40 (H) 0.80 - 1.50 mg/dL [facility] Sodium 123 (L) 135 - 145 mmol/L [facility] Potassium 5.2 (H) 3.5 - 5.0 mmol/L [facility] Comment: Please note: ??Patients with WBC >100,00 0 may have falsely elevated Potassium levels. ??For accurate Potassium quantif ication in these patients send serum separator tube (gold top) for subsequent determinations. ??Contact the Clinical Chemistry Laboratory if there are any qu estions. Chloride 93 (L) 98 - 107 mmol/L [facility] CO2 22 22 - 31 mmol/L [facility] Anion Gap 8 5 - 15 mmol/L [facility] Calcium 6.3 (Critical) 8.5 - 10.5 mg/dL [facility] Comment: Called by: , Read back by: Kerwin George, Date/Time:02/03/22 05:46. Estimated GFR 18 (L) >=60 mL/min/1.73 m?? [facility] Comment: This patient's estimated GFR [...] Han DO CHEMISTRY ORDERABLES Performing Organization Address City/[facility]/ZIP Code Phon e Number [address] (ABNORMAL) Phosphorus (02/03/2022 4:55 AM EDT) P athologist Signature Phosphorus 6.4 (H) 2.5 - 4.5 [facility] mg/dL [facility] Specimen Anatomical Collection Method Collection Time Receive d Time (Source) Location / / Volume Laterality Blood 02/03/2022 4:55 AM 2 5:09 EDT AM EDT Resulting Agency Comment Spec In Lab eGla Novak MD CHEMISTRY ORDERABLES Performing Organization Address City/[facility]/[place] [address] Magnesium (02/03/2022 4:55 AM EDT) P athologist Signature Magnesium 0.84 0.69 - 1.07 [facility] mmol/L [facility] Specimen Anatomical Collection Method Collection Time Receive d Time (Source) Location / / Volume Laterality Blood 02/03/2022 4:55 AM 2 5:09 EDT AM EDT Resulting Agency Comment Spec In Lab Gela Novak MD CHEMISTRY ORDERABLES Performing Organization Address City/[facility]/[place] [address] Vitamin B12 (02/03/2022 4:55 AM EDT) athologist Signature Vitamin B-12 535 232 - 1,245 [facility] pg/mL [facility] Specimen Anatomical Collection Method Collection Time Receive d Time (Source) Location / / Volume Laterality Blood 02/03/2022 4:55 AM 2 5:09 EDT AM EDT Resulting Agency Comment Spec In Lab Erika Retana MD CHEMISTRY ORDERABLES Performing Organization Address City/State/[place] [address] (ABNORMAL) Folate, serum (02/03/2022 4:55 AM EDT) athologist Signature Folate Lvl 3.9 (L) 4.8 - 24.2 [facility] ng/mL [facility] Specimen Anatomical Collection Method Collection Time Receive d Time (Source) Location / / Volume Laterality Blood 02/03/2022 4:55 AM 2 5:09 EDT AM EDT Resulting Agency Comment Spec In Lab Erika Retana MD CHEMISTRY ORDERABLES Performing Organization Address City/[facility]/[place] [address] POCT Glucose (02/02/2022 4:08 PM EDT) athologist Signature POC Glucose 135 65 - 199 [facility] mg/dL [facility] Comment: Supplemental ranges: <140 mg/dL before meals <180 mg/dL all other times of the day Specimen Anatomical Collection Method Collection Time Receive d Time (Source) Location / / Volume Laterality Blood 02/02/2022 4:08 PM 2 4:08 EDT PM EDT Evangelina Flynn MD POINT OF CARE TEST ORDERABLE S Performing Organization Address City/State/[place] [address] (ABNORMAL) Hemogram (02/02/2022 12:40 PM EDT) athologist Signature WBC 33.6 4.0 - 9.5 [facility] (Critical) x10(3)/[facility] LABORATORY Comment: This result has been called to [facility] by Galdino Bynum on 02 02 2022 at 1255, and has been read back. RBC 2.29 (L) 4.58 - 5.54 x10(6)/[facility] LABORATORY Hemoglobin 7.4 (L) 13.7 - 16.5 g/dL [facility] LABORATORY Hematocrit 20.9 (L) 40.5 - 48.5 % [facility] LABORATORY MCV 91.3 82.9 - 93.1 [facility] LABORATORY MCH 32.3 (H) 27.5 - 32.1 pg [facility]ORATORY MCHC 35.4 32.0 - 35.7 g/dL [facility] LABORATORY Platelets 278 145 - 357 x10(3)/[facility] LABORATORY RDWSD 44.7 36.0 - 45.0 [facility] LABORATORY RDWCV 13.9 (H) 11.4 - 13.8 % [facility] MPV 10.2 7.6 - 12.9 [facility] LABORATORY nRBC % Auto 0.0 % [facility] nRBC Abs Auto 0.000 0.000 - 0.000 x10(3)/[facility] LABORATORY Specimen Anatomical Collection Method Collection Time Receive d Time (Source) Location / / Volume Laterality Blood 02/02/2022 12:40 02/02/2022 PM EDT 12:47 PM EDT Resulting Agency Comment Spec In Lab Beck Sanz MD HEMATOLOGY ORDERABLES Performing Organization Address City/State/[place] [address] POCT Glucose (02/02/2022 7:57 AM EDT) athologist [facility] POC Glucose 113 65 - 199 [facility] mg/dL [facility] Comment: Supplemental ranges: <140 mg/dL before meals <180 mg/dL all other times of the day Specimen Anatomical Collection Method Collection Time Receive d Time (Source) Location / / Volume Laterality Blood 02/02/2022 7:57 AM 7:57 EDT AM EDT Evangelina Flynn MD POINT OF CARE TEST ORDERABLE S Performing Organization Address City/State/ZIP Code Phon e Number [address] (ABNORMAL) Iron and TIBC (02/02/2022 2:29 AM EDT) Analysis Performed At Patho logist Time Signature Iron 41 (L) 45 - 160 [facility] mcg/dL [facility] TIBC 149 (L) 250 - 450 [facility] mcg/dL [facility] Iron Saturation 28 20 - 50 % [facility] Specimen Anatomical Collection Method Collection Time Receive d Time (Source) Location / / Volume Laterality Blood Venous Draw / 02/02/2022 2:29 AM 02/03/20 22 2:34 Unknown EDT AM EDT Resulting Agency Comment Spec In Lab Vidhya Peñaloza MD CHEMISTRY ORDERABLES Performing Organization Address City/State/ZIP Code Phon e Number [address] (ABNORMAL) Differential, Automated (02/02/2022 2:29 AM EDT) [facility] Signature Neutrophils % 69.5 % [facility] LABORATORY Neutr Abs (ANC) 21.20 (H) 1.70 - [facility] 6.10 [facility] x10(3)/[facility] LABORATORY Lymphocytes % 11.0 % [facility] Lymphocytes Abs 3.3 (H) 0.9 - 3.2 [facility] x10(3)/[facility] LABORATORY Monocytes % 8.4 % [facility] Monocyte Abs 2.6 (H) 0.3 - 0.9 [facility] x10(3)/[facility] LABORATORY Eosinophils % 1.6 % [facility] Eosinophils Abs 0.5 (H) 0.0 - 0.4 [facility] x10(3)/[facility] LABORATORY Basophils % 0.5 % [facility] Basophils Abs 0.1 0.0 - 0.1 [facility] x10(3)/[facility] LABORATORY Immature Gran % 9.00 % [facility] Comment: Immature granulocytes(IG's)percentage an d absolute count will include metamyelocytes, myelocytes, and promyelo cytes. Blood smears from CBCs yielding IG's will be scanned manually for concor dance. If this scan disagrees with the automated IG or if promyelocytes are not ed, a manual differential will be performed. Gemini Gran Abs 2.75 (H) 0.00 - 0.04 x10(3)/[facility] LABORATORY Specimen Anatomical Collection Method Collection Time Receive d Time (Source) Location / / Volume Laterality Blood 02/02/2022 2:29 AM 2 2:33 EDT AM EDT Resulting Agency Comment Spec In Lab Dimas Hernandez MD HEMATOLOGY ORDERABLES Performing Organization Address City/State/[place] [address] (ABNORMAL) Hemogram (02/02/2022 2:29 AM EDT) P athologist Signature WBC 30.5 4.0 - 9.5 [facility] (Critical) x10(3)/[facility] LABORATORY Comment: This result has been called to CARLOS TUBBS by GAMA THOMPSON on 02 02 2022 at 0245, and has been read back. RBC 2.18 (L) 4.58 - 5.54 x10(6)/[facility] LABORATORY Hemoglobin 7.0 (L) 13.7 - 16.5 g/dL [facility] Hematocrit 20.6 (L) 40.5 - 48.5 % [facility] MCV 94.5 (H) 82.9 - 93.1 fL [facility] MCH 32.1 27.5 - 32.1 pg [facility] MCHC 34.0 32.0 - 35.7 g/dL [facility] Platelets 245 145 - 357 x10(3)/[facility] LABORATORY RDWSD 46.5 (H) 36.0 - 45.0 fL [facility] RDWCV 13.7 11.4 - 13.8 % [facility] MPV 10.3 7.6 - 12.[address] [facility] nRBC % Auto 0.0 % [facility] nRBC Abs Auto 0.000 0.000 - 0.000 x10(3)/[facility] LABORATORY Specimen Anatomical Collection Method Collection Time Receive d Time (Source) Location / / Volume Laterality Blood 02/02/2022 2:29 AM 2 2:33 EDT AM EDT Resulting Agency Comment Spec In Lab Dimas Hernandez MD HEMATOLOGY ORDERABLES Performing Organization Address City/State/[place] [address] (ABNORMAL) Basic Metabolic Panel (non-fasting) (02/02/2022 2:29 AM EDT) athologist Signature Glucose Lvl 107 65 - 199 [facility] mg/dL [facility] Comment: Diabetes: >=200 mg/dL plus symp toms BUN 63 (H) 10 - 20 mg/dL [facility] Creatinine 4.78 (H) 0.80 - 1.50 mg/dL [facility] Sodium 127 (L) 135 - 145 mmol/L [facility] Potassium 5.2 (H) 3.5 - 5.0 mmol/L [facility] Comment: Please note: ??Patients with WBC >100,00 0 may have falsely elevated Potassium levels. ??For accurate Potassium quantif ication in these patients send serum separator tube (gold top) for subsequent determinations. ??Contact the Clinical Chemistry Laboratory if there are any qu estions. Chloride 97 (L) 98 - 107 mmol/L [facility] CO2 20 (L) 22 - 31 mmol/L [facility] Anion Gap 10 5 - 15 mmol/L [facility] Calcium 6.8 (Critical) 8.5 - 10.5 mg/dL [facility] Comment: Called by: kvng, Read back by: ashley george, Date/Time:02/02/22 03:11. Estimated GFR 16 (L) >=60 mL/min/1.73 m?? [facility] Comment: This patient's estimated GFR [...] Organization Address City/State/[place] [address] (ABNORMAL) Phosphorus (02/02/2022 2:29 AM EDT) P athologist Signature Phosphorus 5.7 (H) 2.5 - 4.5 [facility] mg/dL [facility] Specimen Anatomical Collection Method Collection Time Receive d Time (Source) Location / / Volume Laterality Blood 02/02/2022 2:29 AM 2 2:33 EDT AM EDT Resulting Agency Comment Spec In Lab Gela Novak MD CHEMISTRY ORDERABLES Performing Organization Address City/State/ZIP Code Phon e Number [address] Magnesium (02/02/2022 2:29 AM EDT) athologist Signature Magnesium 0.95 0.69 - 1.07 [facility] mmol/L [facility] Specimen Anatomical Collection Method Collection Time Receive d Time (Source) Location / / Volume Laterality Blood 02/02/2022 2:29 AM 2 2:33 EDT AM EDT Resulting Agency Comment Spec In Lab Gela Novak MD CHEMISTRY ORDERABLES Performing Organization Address City/State/[place] [address] (ABNORMAL) Hemogram (02/01/2022 6:15 PM EDT) athologist Signature WBC 30.4 4.0 - 9.5 [facility] (Critical) x10(3)/[facility] LABORATORY Comment: This result has been called to FOREST HUFFMAN by Pretty Luna on 02 01 2022 at 1911, and has been read back. RBC 2.33 (L) 4.58 - 5.54 x10(6)/[facility] LABORATORY Hemoglobin 7.7 (L) 13.7 - 16.5 g/dL [facility] Hematocrit 21.9 (L) 40.5 - 48.5 % [facility] MCV 94.0 (H) 82.9 - 93.1 fL [facility] MCH 33.0 (H) 27.5 - 32.1 pg [facility] MCHC 35.2 32.0 - 35.7 g/dL [facility] Platelets 220 145 - 357 x10(3)/[facility] LABORATORY RDWSD 44.9 36.0 - 45.0 [facility] LABORATORY RDWCV 13.3 11.4 - 13.8 % [facility] MPV 10.8 7.6 - 12.9 [facility] LABORATORY nRBC % Auto 0.0 % [facility] nRBC Abs Auto 0.000 0.000 - 0.000 x10(3)/[facility]L [facility] LABORATORY Specimen Anatomical Collection Method Collection Time Receive d Time (Source) Location / / Volume Laterality Blood 02/01/2022 6:15 PM 6:29 EDT PM EDT Resulting Agency Comment Spec In Lab Jorge L Ernst A[employer]IC[employer] EXTENSION OFFICER HEMATOLOGY ORDERABLES Performing Organization Address City/State/[place] [address] (ABNORMAL) Basic Metabolic Panel (non-fasting) (02/01/2022 6:15 PM EDT) athologist Signature Glucose Lvl 121 65 - 199 [facility] mg/dL [facility] Comment: Diabetes: >=200 mg/dL plus symp toms BUN 56 (H) 10 - 20 mg/dL [facility] Creatinine 4.21 (H) 0.80 - 1.50 mg/dL [facility] Sodium 127 (L) 135 - 145 mmol/L [facility] Potassium 5.1 (H) 3.5 - 5.0 mmol/L [facility] Comment: Please note: ??Patients with WBC >100,00 0 may have falsely elevated Potassium levels. ??For accurate Potassium quantif ication in these patients send serum separator tube (gold top) for subsequent determinations. ??Contact the Clinical Chemistry Laboratory if there are any qu estions. Chloride 96 (L) 98 - 107 mmol/L [facility] CO2 21 (L) 22 - 31 mmol/L [facility] Anion Gap 10 5 - 15 mmol/L [facility] Calcium 7.2 (L) 8.5 - 10.5 mg/dL [facility] Estimated GFR 19 (L) >=60 mL/min/1.73 m?? [facility] Comment: This patient's estimated GFR [...] Ernst APRN CHEMISTRY ORDERABLES Performing Organization Address City/[facility]/[place] [address] Transfuse RBC (02/01/2022 5:16 PM EDT) Jorge L Ernst APRN NURSING TREATMENT ORDERABLES - BLOOD ADMIN Transfuse RBC (02/01/2022 5:16 PM EDT) Jorge L Ernst APRN NURSING TREATMENT ORDERABLES - BLOOD ADMIN (ABNORMAL) C. Difficile Screen (02/01/2022 1:55 PM EDT) [facility] Method Time Signature C Diff Screen Positive (A) Negative [facility] Comment: PCR Pos C. diff?? Positive [...] - GENERAL ORDER JT Performing Organization Address City/[facility]/ZIP [place] [address] Type and Screen Validity (02/01/2022 12:45 PM EDT) [facility] Method Time Signature T&S only valid [facility] at [facility] Comment: This Type and Screen result is only valid at the [facility] Specimen Anatomical Collection Method Collection Time Receive d Time (Source) Location / / Volume Laterality Blood 02/01/2022 12:45 02/01/2022 PM EDT 12:46 PM EDT Resulting Agency Comment Spec In Lab Jorge L J Klever [place] BLOOD BANK ORDERABLES Performing Organization Address City/[facility]/ZIP Code Phon e Number [address] ABORH Recheck Status (02/01/2022 12:45 PM EDT) [facility] Method Time Signature ABORH Type Completed [facility] LABORATORY Specimen Anatomical Collection Method Collection Time Receive d Time (Source) Location / / Volume Laterality Blood 02/01/2022 12:45 02/01/2022 PM EDT 12:46 PM EDT Resulting Agency Comment Spec In Lab Jorge L Ernst APRN BLOOD BANK ORDERABLES Performing Organization Address City/[facility]/[place] [address] Antibody screen (02/01/2022 12:45 PM EDT) [facility] Method Time Signature Ab Screen Negative [facility] LABORATORY Expires at 02/04/2022 JOS[facility] GILMORE [id number] on: [facility] Specimen Anatomical Collection Method Collection Time Receive d Time (Source) Location / / Volume Laterality Blood 02/01/2022 12:45 02/01/2022 PM EDT 12:46 PM EDT Resulting Agency Comment Spec In Lab Jorge L Hua Klever [place] BLOOD BANK ORDERABLES Performing Organization Address City/[facility]/[place] [address] ABO/Rh Typing (02/01/2022 12:45 PM EDT) athologist Signature ABORh Type A Pos [facility] Specimen Anatomical Collection Method Collection Time Receive d Time (Source) Location / / Volume Laterality Blood 02/01/2022 12:45 02/01/2022 PM EDT 12:46 PM EDT Resulting Agency Comment Spec In Lab Jorge L Ernst A[employer] EXT[employer]ION OFFICER BLOOD BANK ORDERABLES Performing Organization Address City/[facility]/ZIP [facility] Phon e Number [address] Prepare RBC (02/01/2022 12:05 PM EDT) athologist [facility] [place] Dispensed? Yes [facility] Specimen Anatomical Collection Method Collection Time Receive d Time (Source) Location / / Volume Laterality Blood 02/01/2022 12:05 02/01/2022 PM EDT 12:15 PM EDT Jorge L Ernst APRN BLOOD BANK ORDERABLES Performing Organization Address City/[facility]/[place] [address] (ABNORMAL) Basic Metabolic Panel (non-fasting) (02/01/2022 11:42 AM EDT) athologist [facility] Glucose Lvl 106 65 - 199 [facility] mg/dL [facility] Comment: Diabetes: >=200 mg/dL plus symp toms BUN 49 (H) 10 - 20 mg/dL [facility] Creatinine 3.84 (H) 0.80 - 1.50 mg/dL [facility] Sodium 129 (L) 135 - 145 mmol/L [facility] Potassium 5.1 (H) 3.5 - 5.0 mmol/L [facility] Comment: Please note: ??Patients with WBC >100,00 0 may have falsely elevated Potassium levels. ??For accurate Potassium quantif ication in these patients send serum separator tube (gold top) for subsequent determinations. ??Contact the Clinical Chemistry Laboratory if there are any qu estions. Chloride 98 98 - 107 mmol/L [facility] CO2 21 (L) 22 - 31 mmol/L [facility] Anion Gap 10 5 - 15 mmol/L [facility] Calcium 7.6 (L) 8.5 - 10.5 mg/dL [facility] Estimated GFR 21 (L) >=60 mL/min/1.73 m?? [facility] Comment: This patient's estimated GFR [...] Comment Spec In Lab Jorge L Ernst AGRICULTURAL EXTENSION OFFICER CHEMISTRY ORDERABLES Performing Organization Address City/State/[place] [address] (ABNORMAL) Hemogram (02/01/2022 11:42 AM EDT) P athologist Signature WBC 36.0 4.0 - 9.5 [facility] (Critical) x10(3)/[facility] LABORATORY Comment: This result has been called to DONTA SY by MARCIA KIMBALL on 02 01 2022 at 1154, and has been read back. RBC 1.98 (L) 4.58 - 5.54 x10(6)/[facility] LABORATORY Hemoglobin 6.4 (L) 13.7 - 16.5 g/dL [facility] Hematocrit 18.5 (L) 40.5 - 48.5 % [facility] MCV 93.4 (H) 82.9 - 93.1 fL [facility] MCH 32.3 (H) 27.5 - 32.1 pg [facility] MCHC 34.6 32.0 - 35.7 g/dL [facility] Platelets 239 145 - 357 x10(3)/[facility] LABORATORY RDWSD 45.0 36.0 - 45.0 fL [facility] RDWCV 13.7 11.4 - 13.8 % [facility] MPV 10.6 7.6 - 12.[address] [facility] nRBC % Auto 0.0 % [facility] nRBC Abs Auto 0.000 0.000 - 0.000 x10(3)/[facility] LABORATORY Specimen Anatomical Collection Method Collection Time Receive d Time (Source) Location / / Volume Laterality Blood 02/01/2022 11:42 02/01/2022 AM EDT 11:46 AM EDT Resulting Agency Comment Spec In Lab Beck Sanz MD HEMATOLOGY ORDERABLES Performing Organization Address City/[facility]/ZIP Code Phon e Number [address] POCT Glucose (02/01/2022 10:42 AM EDT) P athologist Signature POC Glucose 119 65 - 199 [facility] mg/dL [facility] Comment: Supplemental ranges: <140 mg/dL before meals <180 mg/dL all other times of the day Specimen Anatomical Collection Method Collection Time Receive d Time (Source) Location / / Volume Laterality Blood 02/01/2022 10:42 02/01/2022 AM EDT 10:42 AM EDT Beck Sanz MD POINT OF CARE TEST ORDERABLE S Performing Organization Address City/[facility]/ZIP Code Phon e Number [address] Blood culture (02/01/2022 6:35 AM EDT) Patholo gist Method Time Signature Blood Culture No growth [facility] at 5 days. [facility] Specimen Anatomical Collection Method Collection Time Receive d Time (Source) Location / / Volume Laterality Blood 02/01/2022 6:35 AM 2 9:38 EDT AM EDT Resulting Agency Comment Spec In Lab Beck Sanz MD MICROBIOLOGY - BLOOD ORDERAB LES Performing Organization Address City/[facility]/[place] [address] Blood culture (02/01/2022 6:25 AM EDT) Patholo gist Method Time Signature Blood Culture No growth [facility] at 5 days. [facility] Specimen (Source) Anatomical Collection Method Collection Time Re ceived Time Location / / Volume Laterality Blood Pediatric 02/01/2022 6:25 2 9:38 AM EDT AM EDT Resulting Agency Comment Spec In Lab Beck Sanz MD MICROBIOLOGY - BLOOD ORDERAB LES Performing Organization Address City/[facility]/[place] [address] (ABNORMAL) Calcium Ionized Whole Blood, HONORIO (02/01/2022 4:00 AM EDT) Analysis Performed At Patho logist Time Signature pH Honorio 7.43 (H) 7.32 - [facility] 7.42 [facility] ICa Whole 1.13 (L) 1.15 - [facility] Blood 1.33 [facility] mmol/L [facility] LAB[facility]ATORY Comment: Note: ??Total bilirubin higher than 20 m g/dL may lead to falsely low ionized calcium. Specimen Anatomical Collection Method Collection Time Receive d Time (Source) Location / / Volume Laterality Blood ARTERIAL LINE / 02/01/2022 4:00 AM 2021 4:11 Unknown EDT AM EDT Resulting Agency Comment Spec In Lab Erika Retana MD CHEMISTRY ORDERABLES Performing Organization Address City/[facility]/[place] [address] (ABNORMAL) Hemogram (02/01/2022 4:00 AM EDT) P athologist Signature WBC 43.9 4.0 - 9.5 [facility] (Critical) x10(3)/[facility] LABORATORY Comment: This result has been called to GEENA AMBRIZ by Nicki Bazzi on 02 01 2022 at 0446, and has been read back. RBC 2.20 (L) 4.58 - 5.54 x10(6)/[facility] LABORATORY Hemoglobin 7.1 (L) 13.7 - 16.5 g/dL [facility] Hematocrit 20.3 (L) 40.5 - 48.5 % [facility] MCV 92.3 82.9 - 93.1 [facility] LABORATORY MCH 32.3 (H) 27.5 - 32.1 pg [facility] MCHC 35.0 32.0 - 35.7 g/dL [facility] Platelets 264 145 - 357 x10(3)/[facility] LABORATORY RDWSD 43.8 36.0 - 45.0 [facility] LABORATORY RDWCV 13.2 11.4 - 13.8 % [facility] MPV 10.7 7.6 - 12.9 [facility] LABORATORY nRBC % Auto 0.0 % [facility] nRBC Abs Auto 0.000 0.000 - 0.000 x10(3)/[facility] LABORATORY Specimen Anatomical Collection Method Collection Time Receive d Time (Source) Location / / Volume Laterality Blood 02/01/2022 4:00 AM 4:11 EDT AM EDT Resulting Agency Comment Spec In Lab Beck Sanz MD HEMATOLOGY ORDERABLES Performing Organization Address City/State/[place] [address] (ABNORMAL) Differential, Automated (02/01/2022 1:02 AM EDT) [facility] Method Time Signature Neutrophils % 73.9 % [facility] Neutr Abs (ANC) 30.91 (H) 1.70 - [facility] 6.10 [facility] x10(3)/mc HOSPITAL L LABORATORY Lymphocytes % 7.5 % [facility] Lymphocytes Abs 3.1 0.9 - 3.2 [facility] x10(3)/[facility] LABORATORY Monocytes % 7.7 % [facility] Monocyte Abs 3.2 (H) 0.3 - 0.9 [facility] x10(3)/[facility] LABORATORY Eosinophils % 0.5 % [facility] Eosinophils Abs 0.2 0.0 - 0.4 [facility] x10(3)/[facility] LABORATORY Basophils % 0.4 % [facility] Basophils Abs 0.2 (H) 0.0 - 0.1 [facility] x10(3)/[facility] LABORATORY Immature Gran % 10.00 % [facility] Comment: Immature granulocytes(IG's)percentage an d absolute count will include metamyelocytes, myelocytes, and promyelo cytes. Blood smears from CBCs yielding IG's will be scanned manually for concsemaj dannoe. If this scan disagrees with the automated IG or if promyelocytes are not ed, a manual differential will be performed. Gemini Gran Abs 4.18 (H) 0.00 - 0.04 x10(3)/[facility] LABORATORY Specimen Anatomical Collection Method Collection Time Receive d Time (Source) Location / / Volume Laterality Blood 02/01/2022 1:02 AM 2 1:13 EDT AM EDT Resulting Agency Comment Spec In Lab Dimas Hernandez MD HEMATOLOGY ORDERABLES Performing Organization Address City/State/[place] [address] (ABNORMAL) Hemogram (02/01/2022 1:02 AM EDT) P athologist Signature WBC 41.8 4.0 - 9.5 [facility] (Critical) x10(3)/[facility] LABORATORY Comment: This result has been called to PEPE SORENSON by Nicki Bazzi on 02 01 2022 at 0132, and has been read back. RBC 2.23 (L) 4.58 - 5.54 x10(6)/[facility] LABORATORY Hemoglobin 7.2 (L) 13.7 - 16.5 g/dL [facility]ORY Hematocrit 20.6 (L) 40.5 - 48.5 % [facility] MCV 92.4 82.9 - 93.1 [facility] LABORATORY MCH 32.3 (H) 27.5 - 32.1 pg [facility] MCHC 35.0 32.0 - 35.7 g/dL [facility] LABORAT[facility] Platelets 252 145 - 357 x10(3)/[facility] LABORATORY RDWSD 43.6 36.0 - 45.0 [facility] LABORATORY RDWCV 13.3 11.4 - 13.8 % [facility] MPV 10.8 7.6 - 12.9 [facility] LABORATORY nRBC % Auto 0.0 % [facility] nRBC Abs Auto 0.000 0.000 - 0.000 x10(3)/[facility] LABORATORY Specimen Anatomical Collection Method Collection Time Receive d Time (Source) Location / / Volume Laterality Blood 02/01/2022 1:02 AM 1:13 EDT AM EDT Resulting Agency Comment Spec In Lab Dimas Hernandez MD HEMATOLOGY ORDERABLES Performing Organization Address City/State/[place] [address] (ABNORMAL) Calcium Ionized Whole Blood, HONORIO (02/01/2022 1:02 AM EDT) Analysis Performed At Patho logist Time Signature pH Honorio 7.42 7.32 - [facility] 7.42 [facility] ICa Whole 1.09 (L) 1.15 - [facility] Blood 1.33 [facility] mmol/L HOSPITAL LABORATORY Comment: Note: ??Total bilirubin [...] Organization Address City/State/[place] [address] (ABNORMAL) Basic Metabolic Panel (non-fasting) (02/01/2022 1:02 AM EDT) athologist Signature Glucose Lvl 125 65 - 199 [facility] mg/dL [facility] Comment: Diabetes: >=200 mg/dL plus symp toms BUN 50 (H) 10 - 20 mg/dL [facility] Creatinine 3.91 (H) 0.80 - 1.50 mg/dL [facility] Sodium 127 (L) 135 - 145 mmol/L [facility] Potassium 5.2 (H) 3.5 - 5.0 mmol/L [facility] Comment: Please note: ??Patients with WBC >100,00 0 may have falsely elevated Potassium levels. ??For accurate Potassium quantif ication in these patients send serum separator tube (gold top) for subsequent determinations. ??Contact the Clinical Chemistry Laboratory if there are any qu estions. Chloride 97 (L) 98 - 107 mmol/L [facility] CO2 21 (L) 22 - 31 mmol/L [facility] Anion Gap 9 5 - 15 mmol/L [facility] Calcium 7.6 (L) 8.5 - 10.5 mg/dL [facility] Estimated GFR 20 (L) >=60 mL/min/1.73 m?? [facility] Comment: This patient's estimated GFR [...] Han DO CHEMISTRY ORDERABLES Performing Organization Address City/[facility]/ZIP Code Phon e Number [address] (ABNORMAL) Phosphorus (02/01/2022 1:02 AM EDT) P athologist Signature Phosphorus 4.9 (H) 2.5 - 4.5 [facility] mg/dL [facility] Specimen Anatomical Collection Method Collection Time Receive d Time (Source) Location / / Volume Laterality Blood 02/01/2022 1:02 AM 2 1:13 EDT AM EDT Resulting Agency Comment Spec In Lab Gela Novak MD CHEMISTRY ORDERABLES Performing Organization Address City/[facility]/[place] [address] Magnesium (02/01/2022 1:02 AM EDT) P athologist Signature Magnesium 0.94 0.69 - 1.07 [facility] [facility] mmol/L [facility] Specimen Anatomical Collection Method Collection Time Receive d Time (Source) Location / / Volume Laterality Blood 02/01/2022 1:02 AM 2 1:13 EDT AM EDT Resulting Agency Comment Spec In Lab Gela Novak MD CHEMISTRY ORDERABLES Performing Organization Address City/[facility]/ZIP [facility] [place] [address] (ABNORMAL) Calcium Ionized Whole Blood, HONORIO (01/31/2022 10:30 PM EDT) Analysis Performed At Patho logist Time Signature pH Honorio 7.40 7.32 - [facility] [place] 7.42 [facility] ICa Whole 1.02 (L) 1.15 - [facility] [place] Blood 1.33 [facility] mmol/L HOSPITAL LABORATORY Comment: Note: ??Total bilirubin higher than 20 m g/dL may lead to falsely low ionized calcium. Specimen Anatomical Collection Method Collection Time Receive d Time (Source) Location / / Volume Laterality Blood ARTERIAL LINE / 01/31/2022 10:30 02/01/20 22 Unknown PM EDT 10:36 PM EDT Resulting Agency Comment Spec In Lab Erika Retana MD CHEMISTRY ORDERABLES Performing Organization Address City/[facility]/ZIP Code Phon e Number [address] POCT Glucose (01/31/2022 7:39 PM EDT) P athologist Signature POC Glucose 150 65 - 199 [facility] [place] mg/dL [facility] Comment: Supplemental ranges: <140 mg/dL before meals <180 mg/dL all other times of the day Specimen Anatomical Collection Method Collection Time Receive d Time (Source) Location / / Volume Laterality Blood 01/31/2022 7:39 PM 7:39 EDT PM EDT Beck Sanz MD POINT OF CARE TEST ORDERABLE S Performing Organization Address [facility] [place] [address] (ABNORMAL) Calcium Ionized Whole Blood, HONORIO (01/31/2022 7:36 PM EDT) Analysis Performed At Patho logist Time Signature pH Honorio 7.44 (H) 7.32 - [facility] [place] 7.42 [facility] ICa Whole 0.98 (L) 1.15 - [facility] [place] Blood 1.33 [facility] mmol/L HOSPITAL LABORATORY Comment: Note: ??Total bilirubin higher than 20 m g/dL may lead to falsely low ionized calcium. Specimen Anatomical Collection Method Collection Time Receive d Time (Source) Location / / Volume Laterality Blood ARTERIAL LINE / 01/31/2022 7:36 PM 2021 7:40 Unknown EDT PM EDT Resulting Agency Comment Spec In Lab Erika Retana MD CHEMISTRY ORDERABLES Performing Organization Address City/[facility]/ZIP [facility] [place] [address] (ABNORMAL) Electrolytes panel (01/31/2022 4:54 PM EDT) athologist Signature Sodium 126 (L) 135 - 145 [facility] [place] mmol/L [facility] Potassium 5.9 (H) 3.5 - 5.0 [facility] [place] mmol/L [facility] Comment: Please note: ??Patients with WBC >100,00 0 may have falsely elevated Potassium levels. ??For accurate Potassium quantif ication in these patients send serum separator tube (gold top) for subsequent determinations. ??Contact the Clinical Chemistry Laboratory if there are any qu estions. Chloride 95 (L) 98 - 107 mmol/L [facility] CO2 20 (L) 22 - 31 mmol/L [facility] Anion Gap 11 5 - 15 mmol/L [facility] Specimen Anatomical Collection Method Collection Time Receive d Time (Source) Location / / Volume Laterality Blood 01/31/2022 4:54 PM 5:07 EDT PM EDT Resulting Agency Comment Spec In Lab Agnieszka López APRN CHEMISTRY ORDERABLES Performing Organization Address City/State/ZIP Code Phon e Number [address] POCT Glucose (01/31/2022 10:03 AM EDT) athologist [facility] POC Glucose 108 65 - 199 [facility] [place] mg/dL [facility] Comment: Supplemental ranges: <140 mg/dL before meals <180 mg/dL all other times of the day Specimen Anatomical Collection Method Collection Time Receive d Time (Source) Location / / Volume Laterality Blood 01/31/2022 10:03 01/31/2022 AM EDT 10:03 AM EDT Beck Sanz MD POINT OF CARE TEST ORDERABLE S Performing Organization Address City/State/ZIP Code Phon e Number [address] APTT (01/31/2022 8:05 AM EDT) athologist Signature PTT 36 25 - 37 sec [facility] Comment: The PTT is NOT [...] Sanz MD HEMATOLOGY ORDERABLES Performing Organization Address City/[facility]/[place] [address] (ABNORMAL) Electrolytes panel (01/31/2022 6:10 AM EDT) athologist Signature Sodium 126 (L) 135 - 145 [facility] [place] mmol/L [facility] Potassium 5.1 (H) 3.5 - 5.0 [facility] [place] mmol/L [facility] Comment: Please note: ??Patients with WBC >100,00 0 may have falsely elevated Potassium levels. ??For accurate Potassium quantif ication in these patients send serum separator tube (gold top) for subsequent determinations. ??Contact the Clinical Chemistry Laboratory if there are any qu estions. Chloride 94 (L) 98 - 107 mmol/L [facility] CO2 22 22 - 31 mmol/L [facility] Anion Gap 10 5 - 15 mmol/L [facility] Specimen Anatomical Collection Method Collection Time Receive d Time (Source) Location / / Volume Laterality Blood 01/31/2022 6:10 AM 2 6:15 EDT AM EDT Resulting Agency Comment Spec In Lab Erika Retana MD CHEMISTRY ORDERABLES Performing Organization Address City/[facility]/[place] [address] POCT Glucose (01/31/2022 4:16 AM EDT) athologist Signature POC Glucose 94 65 - 199 [facility] [place] mg/dL [facility] Comment: Supplemental ranges: <140 mg/dL before meals <180 mg/dL all other times of the day Specimen Anatomical Collection Method Collection Time Receive d Time (Source) Location / / Volume Laterality Blood 01/31/2022 4:16 AM 4:16 EDT AM EDT Beck Sanz MD POINT OF CARE TEST ORDERABLE S Performing Organization Address City/State/[place] [address] (ABNORMAL) BLOOD GAS 2 VENOUS (01/31/2022 12:43 AM EDT) Analysis Performed At Patho logist Time Signature pH Honorio 7.44 (H) 7.32 - [facility] [place] 7.42 [facility] pCO2 Honorio 30 (L) 41 - 51 [facility] LABORATORY pO2 Honorio 34 25 - 40 [facility] LABORATORY HCO3 Honorio 20.2 mmol/L [facility] BE Honorio -4.0 mmol/L [facility] Hgb Blood Gas 10.1 (L) 13.7 - [facility] [place] 16.5 g/dL [facility] O2HB Honorio 69.5 % [facility] COHB Honorio 0.1 % [facility] Comment: Nonsmokers: 0.5-1.5% COHB Smokers: Variable, but usually less than 10% Toxic: 20-30% COHB Lethal: Greater than 60% COHB METHB Honorio 0.3 <=1.5 % [facility] Na Whole Blood 120 (L) 135 - 145 mmol/L [facility] K Whole Blood 4.9 3.5 - 5.0 mmol/L [facility] Comment: Please note: Patients with WBC >100,000 may have falsely elevated Potassium levels. Contact the Clinical Chemistry L aboratory if there are any questions. ICa Whole Blood 1.05 (L) 1.15 - 1.33 mmol/L [facility] Comment: Note: ??Total bilirubin higher than 20 m g/dL may lead to falsely low ionized calcium. CL Whole Blood 95 (L) 98 - 107 mmol/L [facility] Gluc Whole Bld 110 65 - 199 mg/dL [facility] Comment: Diabetes: >=200 mg/dL plus symp toms Lactate WB 1.0 0.5 - 2.2 mmol/L [facility] BGas Source Venous [facility] Specimen Anatomical Collection Method Collection Time Receive d Time (Source) Location / / Volume Laterality Blood 01/31/2022 12:43 01/31/2022 AM EDT 12:43 AM EDT Beck Sanz MD CHEMISTRY ORDERABLES Performing Organization Address City/State/[place] [address] (ABNORMAL) Differential, Automated (01/31/2022 12:42 AM EDT) [facility] Method Time Signature Neutrophils % 65.8 % [facility] Neutr Abs (ANC) 23.59 (H) 1.70 - [facility] [place] 6.10 [facility] x10(3)/[facility] LABORATORY Lymphocytes % 8.0 % [facility] Lymphocytes Abs 2.9 0.9 - 3.2 [facility] [place] x10(3)[facility] LABORATORY Monocytes % 9.6 % [facility] Monocyte Abs 3.4 (H) 0.3 - 0.9 [facility] [place] x10(3)[facility] LABORATORY Eosinophils % 0.9 % [facility] Eosinophils Abs 0.3 0.0 - 0.4 [facility] [place] x10(3)[facility] LABORATORY Basophils % 0.5 % [facility] Basophils Abs 0.2 (H) 0.0 - 0.1 [facility] [place] x10(3)[facility] LABORATORY Immature Gran % 15.20 % [facility] Comment: Immature granulocytes(IG's)percentage an d absolute count will include metamyelocytes, myelocytes, and promyelo cytes. Blood smears from CBCs yielding IG's will be scanned manually for concor dance. If this scan disagrees with the automated IG or if promyelocytes are not ed, a manual differential will be performed. Gemini Gran Abs 5.46 (H) 0.00 - 0.04 x10(3)/[facility] LABORATORY Specimen Anatomical Collection Method Collection Time Receive d Time (Source) Location / / Volume Laterality Blood 01/31/2022 12:42 01/31/2022 AM EDT 12:49 AM EDT Resulting Agency Comment Spec In Lab Cristina Hillman AGRICULTURAL EXTENSION OFFICER HEMATOLOGY ORDERABLES Performing Organization Address City/State/[place] [address] (ABNORMAL) Hemogram (01/31/2022 12:42 AM EDT) athologist Signature WBC 35.8 4.0 - 9.5 [facility] [place] (Critical) x10(3)/[facility] LABORATORY Comment: This result has been called to PAPITO Boss by Reymundo De Luna on 01 31 2022 at 0103, and has been read back. RBC 2.84 (L) 4.58 - 5.54 x10(6)/[facility] LABORATORY Hemoglobin 9.1 (L) 13.7 - 16.5 g/dL [facility] Hematocrit 25.9 (L) 40.5 - 48.5 % [facility] MCV 91.2 82.9 - 93.1 [facility] LABORATORY MCH 32.0 27.5 - 32.1 pg [facility] MCHC 35.1 32.0 - 35.7 g/dL [facility] Platelets 195 145 - 357 x10(3)/[facility] LABORATORY RDWSD 42.7 36.0 - 45.0 [facility] LABORATORY RDWCV 13.2 11.4 - 13.8 % [facility] MPV 10.6 7.6 - 12.9 [facility] LABORATORY nRBC % Auto 0.0 % [facility] nRBC Abs Auto 0.000 0.000 - 0.000 x10(3)/[facility] LABORATORY Specimen Anatomical Collection Method Collection Time Receive d Time (Source) Location / / Volume Laterality Blood 01/31/2022 12:42 01/31/2022 AM EDT 12:49 AM EDT Resulting Agency Comment Spec In Lab Cristina Hillman APRN HEMATOLOGY ORDERABLES Performing Organization Address City/[facility]/ZIP Code Phon e Number [place] [phone] (ABNORMAL) Creatinine (01/31/2022 12:42 AM EDT) Analysis Performed At Patho logist Time Signature Creatinine 4.01 (H) 0.80 - JOSH VELASQUEZMANDO 1.50 mg/dL [facility] Estimated GFR 20 (L) >=60 JOSH GILMORE mL/min/1.[address]? [facility] Comment: This patient's estimated GFR was [...] Organization Address City/State/ZIP Code Phon e Number [place] [phone] (ABNORMAL) BUN (01/31/2022 12:42 AM EDT) P athologist Signature BUN 50 (H) 10 - 20 JOSH MANDO mg/dL [facility] Specimen Anatomical Collection Method Collection Time Receive d Time (Source) Location / / Volume Laterality Blood 01/31/2022 12:42 01/31/2022 AM EDT 12:49 AM EDT Resulting Agency Comment Spec In Lab Beck Sanz MD CHEMISTRY ORDERABLES Performing Organization Address City/[facility]/[place] [address] (ABNORMAL) Electrolytes panel (01/31/2022 12:42 AM EDT) P athologist Signature Sodium 123 (L) 135 - 145 [facility] [place] mmol/[facility] Potassium 5.1 (H) 3.5 - 5.0 [facility] [place] mmol/L [facility] Comment: Please note: ??Patients with WBC >100,00 0 may have falsely elevated Potassium levels. ??For accurate Potassium quantif ication in these patients send serum separator tube (gold top) for subsequent determinations. ??Contact the Clinical Chemistry Laboratory if there are any qu estions. Chloride 94 (L) 98 - 107 mmol/L [facility] CO2 21 (L) 22 - 31 mmol/L [facility] Anion Gap 8 5 - 15 mmol/L [facility] Specimen Anatomical Collection Method Collection Time Receive d Time (Source) Location / / Volume Laterality Blood 01/31/2022 12:42 01/31/2022 AM EDT 12:49 AM EDT Resulting Agency Comment Spec In Lab Erika Retana MD CHEMISTRY ORDERABLES Performing Organization Address City/[facility]/[place] [address] (ABNORMAL) Calcium Ionized Whole Blood, HONORIO (01/30/2022 8:17 PM EDT) Analysis Performed At Patho logist Time Signature pH Honorio 7.42 7.32 - [facility] [place] 7.42 [facility] ICa Whole 0.99 (L) 1.15 - [facility] [place] Blood 1.33 [facility] mmol/L [facility] Comment: Note: ??Total bilirubin higher than 20 m g/dL may lead to falsely low ionized calcium. Specimen Anatomical Collection Method Collection Time Receive d Time (Source) Location / / Volume Laterality Blood ARTERIAL LINE / 01/30/2022 8:17 PM 2021 8:24 Unknown EDT PM EDT Resulting Agency Comment Spec In Lab Erika Retana MD CHEMISTRY ORDERABLES Performing Organization Address City/[facility]/ZIP Code Phon e Number [address] APTT (01/30/2022 8:17 PM EDT) athologist Signature PTT 30 25 - 37 sec [facility] Comment: The PTT is NOT [...] Sanz MD HEMATOLOGY ORDERABLES Performing Organization Address City/[facility]/[place] [address] POCT Glucose (01/30/2022 8:00 PM EDT) athologist Signature POC Glucose 144 65 - 199 [facility] [place] mg/dL [facility] Comment: Supplemental ranges: <140 mg/dL before meals <180 mg/dL all other times of the day Specimen Anatomical Collection Method Collection Time Receive d Time (Source) Location / / Volume Laterality Blood 01/30/2022 8:00 PM 2 8:00 EDT PM EDT Beck Sanz MD POINT OF CARE TEST ORDERABLE S Performing Organization Address City/State/[place] [address] Chest Abdomen Pelvis [...] who have questions please contact the health manager wound care that requested your imaging first. ? Electronically signed by: Melita Mills MD, [facility] ([phone]), at 01/30/2022 3:20 PM Narrative 01/30/2022 3:20 [...] ho have questions please contact the health manager wound care that requested your imaging first. Agnieszka López APRN IMG CT ORDERABLES (ABNORMAL) Electrolytes panel (01/30/2022 12:23 PM EDT) athologist Signature Sodium 122 (L) 135 - 145 [facility] [place] mmol/L [facility] Potassium 5.2 (H) 3.5 - 5.0 [facility] [place] mmol/L [facility] Comment: Please note: ??Patients with WBC >100,00 0 may have falsely elevated Potassium levels. ??For accurate Potassium quantif ication in these patients send serum separator tube (gold top) for subsequent determinations. ??Contact the Clinical Chemistry Laboratory if there are any qu estions. Chloride 92 (L) 98 - 107 mmol/L [facility] CO2 21 (L) 22 - 31 mmol/L [facility] Anion Gap 9 5 - 15 mmol/L [facility] Specimen Anatomical Collection Method Collection Time Receive d Time (Source) Location / / Volume Laterality Blood 01/30/2022 12:23 01/30/2022 PM EDT 12:33 PM EDT Resulting Agency Comment Spec In Lab Agnieszka López APRN CHEMISTRY ORDERABLES Performing Organization Address City/State/[place] [address] POCT Glucose (01/30/2022 10:42 AM EDT) athologist Signature POC Glucose 140 65 - 199 [facility] [place] mg/dL [facility] Comment: Supplemental ranges: <140 mg/dL before meals <180 mg/dL all other times of the day Specimen Anatomical Collection Method Collection Time Receive d Time (Source) Location / / Volume Laterality Blood 01/30/2022 10:42 01/30/2022 AM EDT 10:42 AM EDT Beck Sanz MD POINT OF CARE TEST ORDERABLE S Performing Organization Address City/[facility]/ZIP Code Phon e Number [place] [phone]OS[address] EKG 12 Lead (01/30/2022 9:18 AM EDT) Component Value Ref Range Test Analysis Performed Pathologis t Method Time At Signature Ventricular rate 111 BPM MUSE SYSTEM Atrial Rate 111 BPM MUSE SYSTEM P-R Interval 136 ms MUSE SYSTEM QRS Duration 84 ms MUSE SYSTEM Q-T Interval 308 ms MUSE SYSTEM QTC Calculated 418 ms MUSE SYSTEM (Bezet) Calculated P [place] 13 degrees MUSE SYSTEM Calculated R [place] 31 degrees MUSE SYSTEM Calculated T [place] -8 degrees MUSE SYSTEM INTERPRETATION Sinus tachycardia MUSE SY STEM Nonspecific T wave abnormality Abnormal ECG When compared with ECG of 23-JAN-2022 00:46, heart rate has slowed Confirmed by Clem Guo ([id number]) on 02/01/2022 1:23:54 PM Specimen Anatomical Collection Method Collection Time Receive d Time (Source) Location / / Volume Laterality 01/30/2022 9:18 AM 1:23 EDT PM EDT Anthony Harvey AGRICULTURAL EXTENSION OFFICER ECG ORDERABLES Performing Organization Address [facility]/ZIP Code Phon e Number MUSE SYSTEM POCT Glucose (01/30/2022 4:21 AM EDT) P athologist Signature POC Glucose 119 65 - 199 [facility] [place] mg/dL [facility] Comment: Supplemental ranges: <140 mg/dL before meals <180 mg/dL all other times of the day Specimen Anatomical Collection Method Collection Time Receive d Time (Source) Location / / Volume Laterality Blood 01/30/2022 4:21 AM 2 4:21 EDT AM EDT Beck Sanz MD POINT OF CARE TEST ORDERABLE S Performing Organization Address City/[facility]/ZIP Code Phon e Number [place] [phone] HOSPITAL LAB[address]ORY [address] Scan, Peripheral Blood (01/30/2022 4:10 AM EDT) Patholo gist Method Time Signature Plat Estimate Normal [facility] RBC Morphology Normal [facility] Toxic Present [facility] LABORATORY Dohle Bodies Present [facility] Specimen Anatomical Collection Method Collection Time Receive d Time (Source) Location / / Volume Laterality Blood 01/30/2022 4:10 AM 4:36 EDT AM EDT Resulting Agency Comment Spec In Lab Cristina Hillman AGRICULTURAL EXTENSION OFFICER HEMATOLOGY ORDERABLES Performing Organization Address City/State/[place] [address] (ABNORMAL) Differential, Automated (01/30/2022 4:10 AM EDT) [facility] Method Time Signature Neutrophils % 60.7 % [facility] Neutr Abs (ANC) 23.73 (H) 1.70 - [facility] [place] 6.10 [facility] x10(3)/[facility] LABORATORY Lymphocytes % 7.2 % [facility] Lymphocytes Abs 2.8 0.9 - 3.2 [facility] [place] x10(3)/[facility] LABORATORY Monocytes % 9.3 % [facility] Monocyte Abs 3.6 (H) 0.3 - 0.9 [facility] [place] x10(3)/[facility] LABORATORY Eosinophils % 0.4 % [facility] Eosinophils Abs 0.2 0.0 - 0.4 [facility] [place] x10(3)/[facility] LABORATORY Basophils % 0.2 % [facility] Basophils Abs 0.1 0.0 - 0.1 [facility] [place] x10(3)/[facility] LABORATORY Immature Gran % 22.20 % [facility] Comment: Immature granulocytes(IG's)percentage an d absolute count will include metamyelocytes, myelocytes, and promyelo cytes. Blood smears from CBCs yielding IG's will be scanned manually for concor dance. If this scan disagrees with the automated IG or if promyelocytes are not ed, a manual differential will be performed. Gemini Gran Abs 8.67 (H) 0.00 - 0.04 x10(3)/[facility] LABORATORY Specimen Anatomical Collection Method Collection Time Receive d Time (Source) Location / / Volume Laterality Blood 01/30/2022 4:10 AM 2 4:36 EDT AM EDT Resulting Agency Comment Spec In Lab Gemma B Rafy AVENDAÑO HEMATOLOGY ORDERABLES Performing Organization Address City/State/[place] [address] (ABNORMAL) Hemogram (01/30/2022 4:10 AM EDT) P athologist Signature WBC 39.1 4.0 - 9.5 [facility] [place] (Critical) x10(3)/[facility] LABORATORY Comment: This result has been called to BECK GUILLEN by Shelli Sauceda on 01 30 2022 at 0448, and has been read back. RBC 3.18 (L) 4.58 - 5.54 x10(6)/[facility] LABORATORY Hemoglobin 10.5 (L) 13.7 - 16.5 g/dL [facility] Hematocrit 29.3 (L) 40.5 - 48.5 % [facility] MCV 92.1 82.9 - 93.1 [facility] LABORATORY MCH 33.0 (H) 27.5 - 32.1 pg [facility] MCHC 35.8 (H) 32.0 - 35.7 g/dL [facility] LABORAT[facility] Platelets 195 145 - 357 x10(3)/[facility] LABORATORY RDWSD 43.3 36.0 - 45.0 [facility] LABORATORY RDWCV 13.0 11.4 - 13.8 % [facility] MPV 10.6 7.6 - 12.9 [facility] LABORATORY nRBC % Auto 0.0 % [facility] nRBC Abs Auto 0.000 0.000 - 0.000 x10(3)/[facility] LABORATORY Specimen Anatomical Collection Method Collection Time Receive d Time (Source) Location / / Volume Laterality Blood 01/30/2022 4:10 AM 2 4:36 EDT AM EDT Resulting Agency Comment Spec In Lab Gemma B Pentland AGRICULTURAL EXTENSION OFFICER HEMATOLOGY ORDERABLES Performing Organization Address City/State/[place] [address] (ABNORMAL) Blood Gas Venous ([facility]) (01/30/2022 4:10 AM EDT) Analysis Performed At Patho logist Time Signature pH Honorio 7.43 (H) 7.32 - [facility] [place] 7.42 [facility] pCO2 Honorio 34 (L) 41 - 51 [facility] LABORATORY pO2 Honorio 35 25 - 40 [facility] LABORATORY HCO3 Honorio 22.2 mmol/L [facility] BE Honorio -2.2 mmol/L [facility] Hgb Blood Gas 11.6 (L) 13.7 - [facility] 16.5 g/dL [facility] O2HB Honorio 72.9 % [facility] COHB Honorio 1.0 % [facility] Comment: Nonsmokers: 0.5-1.5% COHB Smokers: Variable, but usually less than 10% Toxic: 20-30% COHB Lethal: Greater than 60% COHB METHB Honorio 0.3 <=1.5 % [facility] Na Whole Blood 123 (L) 135 - 145 mmol/L [facility] K Whole Blood 5.1 (H) 3.5 - 5.0 mmol/L [facility] Comment: Please note: Patients with WBC >100,000 may have falsely elevated Potassium levels. Contact the Clinical Chemistry L aboratory if there are any questions. ICa Whole Blood 1.05 (L) 1.15 - 1.33 mmol/L [facility] Comment: Note: ??Total bilirubin higher than 20 m g/dL may lead to falsely low ionized calcium. CL Whole Blood 97 (L) 98 - 107 mmol/L [facility] Gluc Whole Bld 142 65 - 199 mg/dL [facility] Comment: Diabetes: >=200 mg/dL plus symp toms Lactate WB 1.2 0.5 - 2.2 mmol/L [facility] BGas Source Venous [facility] Specimen Anatomical Collection Method Collection Time Receive d Time (Source) Location / / Volume Laterality Blood Venous Draw / 01/30/2022 4:10 AM 01/31/20 22 4:31 Unknown EDT AM EDT Resulting Agency Comment Spec In Lab Angelina Reynoso MD CHEMISTRY ORDERABLES Performing Organization Address City/[facility]/[place] [address] (ABNORMAL) CK (01/30/2022 4:10 AM EDT) P athologist Signature CK, Total 5,685 (H) 0 - 200 [facility] unit/[facility] Specimen Anatomical Collection Method Collection Time Receive d Time (Source) Location / / Volume Laterality Blood 01/30/2022 4:10 AM 2 4:36 EDT AM EDT Resulting Agency Comment Spec In Lab Cristina Hillman APRN CHEMISTRY ORDERABLES Performing Organization Address City/[facility]/[place] [address] (ABNORMAL) Basic Metabolic Panel (non-fasting) (01/30/2022 4:10 AM EDT) athologist [facility] [place] Glucose Lvl 146 65 - 199 [facility] mg/dL [facility] Comment: Diabetes: >=200 mg/dL plus symp toms BUN 43 (H) 10 - 20 mg/dL [facility] Creatinine 3.71 (H) 0.80 - 1.50 mg/dL [facility] Sodium 127 (L) 135 - 145 mmol/L [facility] Potassium 5.3 (H) 3.5 - 5.0 mmol/L [facility] Comment: Please note: ??Patients with WBC >100,00 0 may have falsely elevated Potassium levels. ??For accurate Potassium quantif ication in these patients send serum separator tube (gold top) for subsequent determinations. ??Contact the Clinical Chemistry Laboratory if there are any qu estions. Chloride 96 (L) 98 - 107 mmol/L [facility] CO2 22 22 - 31 mmol/L [facility] Anion Gap 9 5 - 15 mmol/L [facility] Calcium 7.5 (L) 8.5 - 10.5 mg/dL [facility] Estimated GFR 22 (L) >=60 mL/min/1.73 m?? [facility] Comment: This patient's estimated GFR [...] Han DO CHEMISTRY ORDERABLES Performing Organization Address City/[facility]/ZIP Code Phon e Number [address] Phosphorus (01/30/2022 4:10 AM EDT) P athologist Signature Phosphorus 4.0 2.5 - 4.5 [facility] mg/dL [facility] Specimen Anatomical Collection Method Collection Time Receive d Time (Source) Location / / Volume Laterality Blood 01/30/2022 4:10 AM 2 4:36 EDT AM EDT Resulting Agency Comment Spec In Lab Gela Novak MD CHEMISTRY ORDERABLES Performing Organization Address City/[facility]/ZIP Code Phon e Number [address] Magnesium (01/30/2022 4:10 AM EDT) athologist Signature Magnesium 0.92 0.69 - 1.07 JOSH MANDO mmol/L [facility] Specimen Anatomical Collection Method Collection Time Receive d Time (Source) Location / / Volume Laterality Blood 01/30/2022 4:10 AM 2 4:36 EDT AM EDT Resulting Agency Comment Spec In Lab Gela Novak MD CHEMISTRY ORDERABLES Performing Organization Address City/[facility]/[place] [address] POCT Glucose (01/30/2022 12:07 AM EDT) athologist Signature POC Glucose 115 65 - 199 J[facility] MANDO mg/dL [facility] Comment: Supplemental ranges: <140 mg/dL before meals <180 mg/dL all other times of the day Specimen Anatomical Collection Method Collection Time Receive d Time (Source) Location / / Volume Laterality Blood 01/30/2022 12:07 01/30/2022 AM EDT 12:07 AM EDT Bekc Sanz MD POINT OF CARE TEST ORDERABLE S Performing Organization Address City/[facility]/ZIP Code Phon e Number [address] POCT Glucose (01/29/2022 9:40 PM EDT) athologist Signature POC Glucose 128 65 - 199 J[facility] MANDO mg/dL [facility] Comment: Supplemental ranges: <140 mg/dL before meals <180 mg/dL all other times of the day Specimen Anatomical Collection Method Collection Time Receive d Time (Source) Location / / Volume Laterality Blood 01/29/2022 9:40 PM 2 9:40 EDT PM EDT Beck Sanz MD POINT OF CARE TEST ORDERABLE S Performing Organization Address City/[facility]/ZIP Code Phon e Number [address] (ABNORMAL) Phosphorus (01/29/2022 9:35 PM EDT) athologist Signature Phosphorus 4.9 (H) 2.5 - 4.5 J[facility] MANDO mg/dL [facility] Specimen Anatomical Collection Method Collection Time Receive d Time (Source) Location / / Volume Laterality Blood 01/29/2022 9:35 PM 2 9:46 EDT PM EDT Resulting Agency Comment Spec In Lab Angelina Reynoso MD CHEMISTRY ORDERABLES Performing Organization Address City/State/ZIP Code Phon e Number [address] Scan, Peripheral Blood (01/29/2022 2:55 AM EDT) P athologist Signature Plat Estimate Normal [facility] RBC Morphology Normal [facility] Specimen Anatomical Collection Method Collection Time Receive d Time (Source) Location / / Volume Laterality Blood 01/29/2022 2:55 AM 2 3:06 EDT AM EDT Resulting Agency Comment Spec In Lab Cristina Hillman APRN HEMATOLOGY ORDERABLES Performing Organization Address City/[facility]/[place] [address] (ABNORMAL) Differential, Automated (01/29/2022 2:55 AM EDT) Patholo gist Method Time Signature Neutrophils % 47.3 % [facility] Neutr Abs (ANC) 13.86 (H) 1.70 - [facility] 6.10 [facility] x10(3)/[facility] LABORATORY Lymphocytes % 8.8 % [facility] Lymphocytes Abs 2.6 0.9 - 3.2 [facility] x10(3)/[facility] LABORATORY Monocytes % 9.4 % [facility] Monocyte Abs 2.8 (H) 0.3 - 0.9 [facility] x10(3)/[facility] LABORATORY Eosinophils % 1.1 % [facility] Eosinophils Abs 0.3 0.0 - 0.4 [facility] x10(3)/[facility] LABORATORY Basophils % 0.2 % [facility] Basophils Abs 0.1 0.0 - 0.1 [facility] x10(3)/[facility] LABORATORY Immature Gran % 33.20 % [facility] Comment: Immature granulocytes(IG's)percentage an d absolute count will include metamyelocytes, myelocytes, and promyelo cytes. Blood smears from CBCs yielding IG's will be scanned manually for concor dance. If this scan disagrees with the automated IG or if promyelocytes are not ed, a manual differential will be performed. Gemini Gran Abs 9.75 (H) 0.00 - 0.04 x10(3)/[facility] LABORATORY Specimen Anatomical Collection Method Collection Time Receive d Time (Source) Location / / Volume Laterality Blood 01/29/2022 2:55 AM 3:06 EDT AM EDT Resulting Agency Comment Spec In Lab Cristina Hillman APRN HEMATOLOGY ORDERABLES Performing Organization Address City/State/[place] [address] (ABNORMAL) Hemogram (01/29/2022 2:55 AM EDT) Analysis Performed At Patho logist Time Signature WBC 29.4 (H) 4.0 - 9.5 [facility] x10(3)/[facility] LABORATORY RBC 3.34 (L) 4.58 - [facility] MANDO 5.54 [facility] x10(6)/[facility] LABORATORY Hemoglobin 10.7 (L) 13.7 - [facility]/dL [facility] Hematocrit 31.3 (L) 40.5 - [facility] MANDO 48.5 % [facility] MCV 93.7 (H) 82.9 - [facility] MANDO 93.1 [facility] LABORATORY MCH 32.0 27.5 - [facility] MANDO 32.1 pg [facility] MCHC 34.2 32.0 - [facility] MANDO 35.7 g/dL [facility] Platelets 148 145 - 357 [facility] x10(3)/[facility] LABORATORY RDWSD 44.0 36.0 - [facility] MANDO 45.0 [facility] LABORATORY RDWCV 13.0 11.4 - [facility] MANDO 13.8 % [facility] MPV 10.7 7.6 - 12.9 [facility] LABORATORY nRBC % Auto 0.0 % [facility] nRBC Abs Auto 0.000 0.000 - [facility] 0.000 [facility] x10(3)/[facility] LABORATORY Specimen Anatomical Collection Method Collection Time Receive d Time (Source) Location / / Volume Laterality Blood 01/29/2022 2:55 AM 2 3:06 EDT AM EDT Resulting Agency Comment Spec In Lab Gemma B Pentland [employer]ER HEMATOLOGY ORDERABLES Performing Organization Address City/[facility]/ZIP Code Phon e Number [address] (ABNORMAL) CK (01/29/2022 2:55 AM EDT) athologist Signature CK, Total 7,723 (H) 0 - 200 [facility] unit/L [facility] Comment: result rechecked-KS Specimen Anatomical Collection Method Collection Time Receive d Time (Source) Location / / Volume Laterality Blood 01/29/2022 2:55 AM 2 3:06 EDT AM EDT Resulting Agency Comment Spec In Lab Gemma B Pentland A[employer]IC[employer] EXTENSION OFFICER CHEMISTRY ORDERABLES Performing Organization Address City/[facility]/[place] [address] (ABNORMAL) Basic Metabolic Panel (non-fasting) (01/29/2022 2:55 AM EDT) P athologist Signature Glucose Lvl 124 65 - 199 [facility] mg/dL [facility] Comment: Diabetes: >=200 mg/dL plus symp toms BUN 34 (H) 10 - 20 mg/dL [facility] Comment: result rechecked-KS Creatinine 3.22 (H) 0.80 - 1.50 mg/dL [facility] Comment: result rechecked-[place] Sodium 130 (L) 135 - 145 mmol/L [facility] Potassium 4.8 3.5 - 5.0 mmol/L [facility] Comment: Please note: ??Patients with WBC >100,00 0 may have falsely elevated Potassium levels. ??For accurate Potassium quantif ication in these patients send serum separator tube (gold top) for subsequent determinations. ??Contact the Clinical Chemistry Laboratory if there are any qu estions. Chloride 98 98 - 107 mmol/L [facility] CO2 24 22 - 31 mmol/L [facility] Anion Gap 8 5 - 15 mmol/L [facility] Calcium 7.6 (L) 8.5 - 10.5 mg/dL [facility] Estimated GFR 26 (L) >=60 mL/min/1.73 m?? [facility] Comment: This patient's estimated GFR [...] Organization Address City/State/[place] [address] Phosphorus (01/29/2022 2:55 AM EDT) P athologist Signature Phosphorus 3.2 2.5 - 4.5 [facility] mg/dL [facility] Specimen Anatomical Collection Method Collection Time Receive d Time (Source) Location / / Volume Laterality Blood 01/29/2022 2:55 AM 2 3:06 EDT AM EDT Resulting Agency Comment Spec In Lab Gela Novak MD CHEMISTRY ORDERABLES Performing Organization Address City/State/ZIP Code Phon e Number JOSH MANDO[address] Magnesium (01/29/2022 2:55 AM EDT) P athologist Signature Magnesium 0.85 0.69 - 1.07 [facility] mmol/L [facility] Specimen Anatomical Collection Method Collection Time Receive d Time (Source) Location / / Volume Laterality Blood 01/29/2022 2:55 AM 2 3:06 EDT AM EDT Resulting Agency Comment Spec In Lab Gela Novak MD CHEMISTRY ORDERABLES Performing Organization Address City/State/[place] [address] (ABNORMAL) Blood Gas Venous ([facility]) (01/28/2022 1:25 PM EDT) Analysis Performed At Patho logist Time Signature pH Honorio 7.40 7.32 - [facility] 7.42 [facility] pCO2 Honorio 44 41 - 51 [facility] LABORATORY pO2 Honorio 37 25 - 40 [facility]ORY HCO3 Honorio 26.5 mmol/L [facility] BE Honorio 1.6 mmol/L [facility] Hgb Blood Gas 12.1 (L) 13.7 - [facility] 16.5 g/dL [facility] O2HB Honorio 71.4 % [facility] COHB Honorio 0.7 % [facility] Comment: Nonsmokers: 0.5-1.5% COHB Smokers: Variable, but usually less than 10% Toxic: 20-30% COHB Lethal: Greater than 60% COHB METHB Honorio 0.1 <=1.5 % [facility] Na Whole Blood 130 (L) 135 - 145 mmol/L [facility] K Whole Blood 4.6 3.5 - 5.0 mmol/L [facility] Comment: Please note: Patients with WBC >100,000 may have falsely elevated Potassium levels. Contact the Clinical Chemistry L aboratory if there are any questions. ICa Whole Blood 1.16 1.15 - 1.33 mmol/L [facility] Comment: Note: ??Total bilirubin higher than 20 m g/dL may lead to falsely low ionized calcium. CL Whole Blood 103 98 - 107 mmol/L [facility] Gluc Whole Bld 130 65 - 199 mg/dL [facility] Comment: Diabetes: >=200 mg/dL plus symp toms Lactate WB 1.0 0.5 - 2.2 mmol/L [facility] BGas Source Venous [facility] Temp Honorio 37.3 Celsius [facility] Specimen Anatomical Collection Method Collection Time Receive d Time (Source) Location / / Volume Laterality Blood Venous Draw / 01/28/2022 1:25 PM 01/29/20 1:36 Unknown EDT PM EDT Resulting Agency Comment Spec In Lab Angelina Reynoso MD CHEMISTRY ORDERABLES Performing Organization Address City/State/[place] [address] (ABNORMAL) Blood Gas Venous ([facility]) (01/28/2022 6:20 AM EDT) Analysis Performed At Patho logist Time Signature pH Honorio 7.41 7.32 - [facility] 7.42 [facility] pCO2 Honorio 42 41 - 51 [facility] LABORATORY pO2 Honorio 30 25 - 40 [facility]ORY HCO3 Honorio 26.3 mmol/L [facility] BE Honorio 1.7 mmol/L [facility] Hgb Blood Gas 12.4 (L) 13.7 - [facility] 16.5 g/dL [facility] O2HB Honorio 64.2 % [facility] COHB Honorio 0.8 % [facility] Comment: Nonsmokers: 0.5-1.5% COHB Smokers: Variable, but usually less than 10% Toxic: 20-30% COHB Lethal: Greater than 60% COHB METHB Honorio 0.3 <=1.5 % [facility] Na Whole Blood 130 (L) 135 - 145 mmol/L [facility] K Whole Blood 4.8 3.5 - 5.0 mmol/L [facility] Comment: Please note: Patients with WBC >100,000 may have falsely elevated Potassium levels. Contact the Clinical Chemistry L aboratory if there are any questions. ICa Whole Blood 1.17 1.15 - 1.33 mmol/L [facility] Comment: Note: ??Total bilirubin higher than 20 m g/dL may lead to falsely low ionized calcium. CL Whole Blood 103 98 - 107 mmol/L [facility] Gluc Whole Bld 112 65 - 199 mg/dL [facility] Comment: Diabetes: >=200 mg/dL plus symp toms Lactate WB 1.1 0.5 - 2.2 mmol/L [facility] FIO2 Honorio 21 % [facility] BGas Source Venous [facility] Specimen Anatomical Collection Method Collection Time Receive d Time (Source) Location / / Volume Laterality Blood Venous Draw / 01/28/2022 6:20 AM 01/29/20 22 6:28 Unknown EDT AM EDT Resulting Agency Comment Spec In Lab Angelina Reynoso MD CHEMISTRY ORDERABLES Performing Organization Address City/State/ZIP Code Phon e Number [address] (ABNORMAL) CK (01/28/2022 6:20 AM EDT) P athologist Signature CK, Total 11,287 (H) 0 - 200 [facility] unit/[facility] Specimen Anatomical Collection Method Collection Time Receive d Time (Source) Location / / Volume Laterality Blood 01/28/2022 6:20 AM 2 6:27 EDT AM EDT Resulting Agency Comment Spec In Lab Cristina Hlilman APRN CHEMISTRY ORDERABLES Performing Organization Address City/[facility]/ZIP Code Phon e Number [address] (ABNORMAL) _Urinalysis with microscopic (01/28/2022 6:00 AM EDT) Patholo gist Method Time Signature Glucose UA 100 (A) Negative [facility] mg/dL [facility] Protein UA >=300 (A) Negative [facility] Bilirubin UA Negative Negative [facility] mg/dL [facility] Comment: Clinical correlation required for positi ve Urine Bilirubin results as false positive may occur with some drugs and d rug related products. If a false positive is suspected a serum total bili villaseñor should be considered if clinically indicated. Urobilinogen UA Normal Normal mg/dL [facility] pH UA 7.5 5.0 - 8.0 [facility] Blood UA Large (A) Negative mg/dL [facility] Ketones UA Negative Negative mg/dL [facility] Nitrite UA Negative Negative [facility] Leukocytes UA Negative Negative [facility]ORY Appearance UA Clear Clear [facility] Spec [place] UA 1.025 1.006 - 1.030 [facility] Color UA Yellow [facility] RBC UA 4 (H) 0 - 3 /HPF [facility] WBC UA 1 0 - 3 /HPF [facility] Bacteria UA Rare (A) None /HPF [facility] Specimen Anatomical Collection Method Collection Time Receive d Time (Source) Location / / Volume Laterality Urine 01/28/2022 6:00 AM 2 6:40 EDT AM EDT Resulting Agency Comment Spec In Lab Beck Sanz MD URINE ORDERABLES Performing Organization Address City/[facility]/[place] [address] Blood culture (01/28/2022 3:45 AM EDT) [facility] gist Method Time Signature Blood Culture No growth JOSH GILMORE at 5 days. [facility] Specimen Anatomical Collection Method Collection Time Receive d Time (Source) Location / / Volume Laterality Blood 01/28/2022 3:45 AM 2 5:37 EDT AM EDT Resulting Agency Comment Spec In Lab Beck Sanz MD MICROBIOLOGY - BLOOD ORDERAB LES Performing Organization Address City/[facility] [place] [address] Scan, Peripheral Blood (01/28/2022 12:18 AM EDT) Patholo gist Method Time Signature Plat Estimate Decreased [facility] RBC Morphology Normal [facility] Specimen Anatomical Collection Method Collection Time Receive d Time (Source) Location / / Volume Laterality Blood 01/28/2022 12:18 01/28/2022 AM EDT 12:24 AM EDT Resulting Agency Comment Spec In Lab Cristina Hillman APRN HEMATOLOGY ORDERABLES Performing Organization Address City/State/[place] [address] (ABNORMAL) Blood Gas Venous ([facility]) (01/28/2022 12:18 AM EDT) Analysis Performed At Patho logist Time Signature pH Honorio 7.39 7.32 - [facility] 7.42 [facility] pCO2 Honorio 44 41 - 51 [facility] LABORATORY pO2 Honorio 34 25 - 40 [facility] LABORATORY HCO3 Honorio 25.9 mmol/L [facility] BE Honorio 1.0 mmol/L [facility] Hgb Blood Gas 12.8 (L) 13.7 - [facility] 16.5 g/dL [facility] O2HB Honorio 68.7 % [facility] COHB Honorio 0.6 % [facility] Comment: Nonsmokers: 0.5-1.5% COHB Smokers: Variable, but usually less than 10% Toxic: 20-30% COHB Lethal: Greater than 60% COHB METHB Honorio 0.3 <=1.5 % [facility] Na Whole Blood 130 (L) 135 - 145 mmol/L [facility] K Whole Blood 4.4 3.5 - 5.0 mmol/L [facility] Comment: Please note: Patients with WBC >100,000 may have falsely elevated Potassium levels. Contact the Clinical Chemistry L aboratory if there are any questions. ICa Whole Blood 1.14 (L) 1.15 - 1.33 mmol/L [facility] Comment: Note: ??Total bilirubin higher than 20 m g/dL may lead to falsely low ionized calcium. CL Whole Blood 102 98 - 107 mmol/L [facility] Gluc Whole Bld 120 65 - 199 mg/dL [facility] Comment: Diabetes: >=200 mg/dL plus symp toms Lactate WB 1.0 0.5 - 2.2 mmol/L [facility] FIO2 Honorio 21 % [facility] BGas Source Venous [facility] Specimen Anatomical Collection Method Collection Time Receive d Time (Source) Location / / Volume Laterality Blood Venous Draw / 01/28/2022 12:18 01/28/2022 Unknown AM EDT 12:25 AM EDT Resulting Agency Comment Spec In Lab Angelina Reynoso MD CHEMISTRY ORDERABLES Performing Organization Address City/State/ZIP Code Phon e Number [place] [id number] LAB[address]ORY [address] (ABNORMAL) Differential, Automated (01/28/2022 12:18 AM EDT) [facility] gist Method Time Signature Neutrophils % 56.1 % [facility] Neutr Abs (ANC) 13.41 (H) 1.70 - [facility] 6.10 [facility] x10(3)/[facility] LABORATORY Lymphocytes % 7.3 % [facility] Lymphocytes Abs 1.7 0.9 - 3.2 [facility] x10(3)[facility] LABORATORY Monocytes % 6.7 % [facility] Monocyte Abs 1.6 (H) 0.3 - 0.9 [facility] x10(3)[facility] LABORATORY Eosinophils % 1.0 % [facility] Eosinophils Abs 0.2 0.0 - 0.4 [facility] x10(3)[facility] LABORATORY Basophils % 0.1 % [facility] LABORATORY Basophils Abs 0.0 0.0 - 0.1 [facility] x10(3)/[facility] LABORATORY Immature Gran % 28.80 % [facility] LABORATORY Comment: Immature granulocytes(IG's)percentage an d absolute count will include metamyelocytes, myelocytes, and promyelo cytes. Blood smears from CBCs yielding IG's will be scanned manually for concor dance. If this scan disagrees with the automated IG or if promyelocytes are not ed, a manual differential will be performed. Gemini Gran Abs 6.87 (H) 0.00 - 0.04 x10(3)/[facility] LABORATORY Specimen Anatomical Collection Method Collection Time Receive d Time (Source) Location / / Volume Laterality Blood 01/28/2022 12:18 01/28/2022 AM EDT 12:24 AM EDT Resulting Agency Comment Spec In Lab Cristina Hillman APRN HEMATOLOGY ORDERABLES Performing Organization Address City/State/ZIP Code Phon e Number [place] [id number]OSPITAL LABORATORY Drive (ABNORMAL) Hemogram (01/28/2022 12:18 AM EDT) Analysis Performed At Patho logist Time Signature WBC 23.9 (H) 4.0 - 9.5 [facility] x10(3)/[facility] LABORATORY RBC 3.63 (L) 4.58 - [facility] 5.54 [facility] x10(6)/[facility] LABORATORY Hemoglobin 11.9 (L) 13.7 - [facility] 16.5 g/dL [facility] LABORATORY Hematocrit 34.7 (L) 40.5 - [facility] MANDO 48.5 % [facility] LABORATORY MCV 95.6 (H) 82.9 - [facility] MANDO 93.1 [facility] LABORATORY MCH 32.8 (H) 27.5 - [facility] MANDO 32.1 pg [facility] LABORATORY MCHC 34.3 32.0 - [facility] 35.7 g/dL [facility] LABORATORY Platelets 106 (L) 145 - 357 [facility] x10(3)/[facility] LABORATORY RDWSD 43.9 36.0 - [facility] 45.0 [facility] LABORATORY RDWCV 12.8 11.4 - [facility] 13.8 % [facility] LABORATORY MPV 10.5 7.6 - 12.9 [facility] LABORATORY nRBC % Auto 0.0 % [facility] LABORATORY nRBC Abs Auto 0.000 0.000 - [facility] 0.000 [facility] x10(3)/[facility] LABORATORY Specimen Anatomical Collection Method Collection Time Receive d Time (Source) Location / / Volume Laterality Blood 01/28/2022 12:18 01/28/2022 AM EDT 12:24 AM EDT Resulting Agency Comment Spec In Lab Water Viewma B [facility] AGRICULTURAL EXTENSION OFFICER HEMATOLOGY ORDERABLES Performing Organization Address City/[facility]/ZIP Code Phon e Number [address] (ABNORMAL) Hepatic Function Panel (01/28/2022 12:18 AM EDT) P athologist Signature Total Protein 4.5 (L) 6.1 - 8.[address] [facility] g/dL [facility] LABORATORY Albumin 2.0 (L) 3.2 - 5.[address] [facility] g/dL [facility] LABORATORY AST 418 (H) 0 - [address] unit/L [facility] LABORATORY ALT 237 (H) 0 - [address] unit/L [facility] LABORATORY Alk Phos 88 40 - [address] unit/L [facility] LABORATORY Total 0.4 0.2 - 1.3 [facility] Bilirubin mg/dL [facility] LABORATORY Bili, Direct 0.3 0.0 - 0.3 [facility] MANDO mg/dL [facility] LABORATORY Specimen Anatomical Collection Method Collection Time Receive d Time (Source) Location / / Volume Laterality Blood 01/28/2022 12:18 01/28/2022 AM EDT 12:24 AM EDT Resulting Agency Comment Spec In Lab Gemma B Pentland AGRICULTURAL EXTENSION OFFICER CHEMISTRY ORDERABLES Performing Organization Address City/[facility]/[place] [address] (ABNORMAL) Basic Metabolic Panel (non-fasting) (01/28/2022 12:18 AM EDT) P athologist Signature Glucose Lvl 118 65 - [address] mg/dL [facility] LABORATORY Comment: Diabetes: >=200 mg/dL plus symp toms BUN 20 10 - 20 mg/dL [facility] LABORATORY Creatinine 2.03 (H) 0.80 - 1.50 mg/dL [facility] LABORATORY Sodium 136 135 - 145 mmol/L [facility] LABORATORY Potassium 4.6 3.5 - 5.0 mmol/L [facility] LABORATORY Comment: Please note: ??Patients with WBC >100,00 0 may have falsely elevated Potassium levels. ??For accurate Potassium quantif ication in these patients send serum separator tube (gold top) for subsequent determinations. ??Contact the Clinical Chemistry Laboratory if there are any qu estions. Chloride 102 98 - 107 mmol/L [facility] LABORATORY CO2 25 22 - 31 mmol/L [facility] LABORATORY Anion Gap 9 5 - 15 mmol/L [facility] LABORATORY Calcium 7.9 (L) 8.5 - 10.5 mg/dL [facility] LABORATORY Estimated GFR 44 (L) >=60 mL/min/1.73 m?? [facility] LABORATORY Comment: This patient's estimated GFR [...] Organization Address City/State/[place] [address] Phosphorus (01/28/2022 12:18 AM EDT) P athologist Signature Phosphorus 2.5 2.5 - 4.5 [facility] M[facility] mg/dL [facility] LABORATORY Specimen Anatomical Collection Method Collection Time Receive d Time (Source) Location / / Volume Laterality Blood 01/28/2022 12:18 01/28/2022 AM EDT 12:24 AM EDT Resulting Agency Comment Spec In Lab Gela Novak MD CHEMISTRY ORDERABLES Performing Organization Address City/State/ZIP Code Phon e Number [address] Magnesium (01/28/2022 12:18 AM EDT) athologist Signature Magnesium 0.81 0.69 - 1.07 [facility] mmol/L [facility] LABORATORY Specimen Anatomical Collection Method Collection Time Receive d Time (Source) Location / / Volume Laterality Blood 01/28/2022 12:18 01/28/2022 AM EDT 12:24 AM EDT Resulting Agency Comment Spec In Lab Gela Novak MD CHEMISTRY ORDERABLES Performing Organization Address City/State/ZIP Code Phon e Number [address] (ABNORMAL) CK (01/28/2022 12:18 AM EDT) athologist [facility] [place] CK, Total 14,277 (H) 0 - 200 [facility] [place] unit/L [facility] LABORATORY Specimen Anatomical Collection Method Collection Time Receive d Time (Source) Location / / Volume Laterality Blood 01/28/2022 12:18 01/28/2022 AM EDT 12:24 AM EDT Resulting Agency Comment Spec In Lab Cristina Hillman APRN CHEMISTRY ORDERABLES Performing Organization Address City/State/ZIP Code Phon e Number [address] POCT Glucose (01/27/2022 8:29 PM EDT) athologist [facility] [place] POC Glucose 104 65 - [address] mg/dL [facility] LABORATORY Comment: Supplemental ranges: <140 mg/dL before meals <180 mg/dL all other times of the day Specimen Anatomical Collection Method Collection Time Receive d Time (Source) Location / / Volume Laterality Blood 01/27/2022 8:29 PM 8:29 EDT PM EDT Beck Sanz MD POINT OF CARE TEST ORDERABLE S Performing Organization Address City/State/[place] [address] (ABNORMAL) Blood Gas Venous (NLH) (01/27/2022 6:06 PM EDT) Analysis Performed At Patho logist Time Signature pH Honor[place] 7.42 7.32 - [facility] [place] 7.42 [facility] LABORATORY pCO2 Honorio 42 41 - 51 [facility] LABORATORY pO2 Honorio 35 25 - 40 [facility] LABORATORY HCO3 Honorio 26.5 mmol/L [facility] LABORATORY BE Honorio 2.0 mmol/L [facility] LABORATORY Hgb Blood Gas 11.9 (L) 13.7 - [facility] 16.5 g/dL [facility] LABORATORY O2HB Honorio 72.0 % [facility] LABORATORY COHB Honorio 0.8 % [facility] LABORATORY Comment: Nonsmokers: 0.5-1.5% COHB Smokers: Variable, but usually less than 10% Toxic: 20-30% COHB Lethal: Greater than 60% COHB METHB Honorio 0.2 <=1.5 % [facility] LABORATORY Na Whole Blood 130 (L) 135 - 145 mmol/L [facility] LABORATORY K Whole Blood 4.3 3.5 - 5.0 mmol/L [facility] LABORATORY Comment: Please note: Patients with WBC >100,000 may have falsely elevated Potassium levels. Contact the Clinical Chemistry L aboratory if there are any questions. ICa Whole Blood 1.14 (L) 1.15 - 1.33 mmol/L [facility] LABORATORY Comment: Note: ??Total bilirubin higher than 20 m g/dL may lead to falsely low ionized calcium. CL Whole Blood 103 98 - 107 mmol/L [facility] LABORATORY Gluc Whole Bld 142 65 - 199 mg/dL [facility] LABORATORY Comment: Diabetes: >=200 mg/dL plus symp toms Lactate WB 1.2 0.5 - 2.2 mmol/L [facility] LABORATORY BGas Source Venous [facility] LABORATORY Specimen Anatomical Collection Method Collection Time Receive d Time (Source) Location / / Volume Laterality Blood Venous Draw / 01/27/2022 6:06 PM 01/28/20 22 6:06 Unknown EDT PM EDT Resulting Agency Comment Spec In Lab Angelina Reynoso MD CHEMISTRY ORDERABLES Performing Organization Address City/State/[place] [address] (ABNORMAL) CK (01/27/2022 5:55 PM EDT) athologist [facility] [place] CK, Total 15,910 (H) 0 - 200 [facility] [place] unit/L [facility] LABORATORY Specimen Anatomical Collection Method Collection Time Receive d Time (Source) Location / / Volume Laterality Blood 01/27/2022 5:55 PM 2 6:05 EDT PM EDT Resulting Agency Comment Spec In Lab Cristina Hillman APRN CHEMISTRY ORDERABLES Performing Organization Address City/[facility]/[place] [address] POCT Glucose (01/27/2022 4:28 PM EDT) athologist Signature POC Glucose 99 65 - [address] [facility] mg/dL [facility] LABORATORY Comment: Supplemental ranges: <140 mg/dL before meals <180 mg/dL all other times of the day Specimen Anatomical Collection Method Collection Time Receive d Time (Source) Location / / Volume Laterality Blood 01/27/2022 4:28 PM 2 4:28 EDT PM EDT Beck Sanz MD POINT OF CARE TEST ORDERABLE S Performing Organization Address City/State/[place] [address] POCT Glucose (01/27/2022 12:13 PM EDT) athologist Signature POC Glucose 108 65 - 199 [facility] mg/dL [facility] LABORATORY Comment: Supplemental ranges: <140 mg/dL before meals <180 mg/dL all other times of the day Specimen Anatomical Collection Method Collection Time Receive d Time (Source) Location / / Volume Laterality Blood 01/27/2022 12:13 01/27/2022 PM EDT 12:13 PM EDT Beck Sanz MD POINT OF CARE TEST ORDERABLE S Performing Organization Address City/State/[place] [address] (ABNORMAL) BLOOD GAS 2 VENOUS (01/27/2022 12:11 PM EDT) Analysis Performed At Patho logist Time Signature pH Honor[place] 7.41 7.32 - [facility] [place] 7.42 [facility] LABORATORY pCO2 Honorio 42 41 - 51 [facility] LABORATORY pO2 Honorio 34 25 - 40 [facility] LABORATORY HCO3 Honorio 25.7 mmol/L [facility] LABORATORY BE Honorio 1.1 mmol/L [facility] LABORATORY Hgb Blood Gas 13.1 (L) 13.7 - [facility] 16.5 g/dL [facility] LABORATORY O2HB Honorio 70.3 % [facility] LABORATORY COHB Honorio 1.0 % [facility] LABORATORY Comment: Nonsmokers: 0.5-1.5% COHB Smokers: Variable, but usually less than 10% Toxic: 20-30% COHB Lethal: Greater than 60% COHB METHB Honorio 0.2 <=1.5 % [facility] LABORATORY Na Whole Blood 130 (L) 135 - 145 mmol/L [facility] LABORATORY K Whole Blood 4.3 3.5 - 5.0 mmol/L [facility] LABORATORY Comment: Please note: Patients with WBC >100,000 may have falsely elevated Potassium levels. Contact the Clinical Chemistry L aboratory if there are any questions. ICa Whole Blood 1.13 (L) 1.15 - 1.33 mmol/L [facility] LABORATORY Comment: Note: ??Total bilirubin higher than 20 m g/dL may lead to falsely low ionized calcium. CL Whole Blood 102 98 - 107 mmol/L [facility] LABORATORY Gluc Whole Bld 127 65 - 199 mg/dL [facility] LABORATORY Comment: Diabetes: >=200 mg/dL plus symp toms Lactate WB 1.1 0.5 - 2.2 mmol/L [facility] LABORATORY FIO2 Honorio 21 % [facility] LABORATORY BGas Source Venous [facility] LABORATORY Specimen Anatomical Collection Method Collection Time Receive d Time (Source) Location / / Volume Laterality Blood 01/27/2022 12:11 01/27/2022 PM EDT 12:11 PM EDT Beck Sanz MD CHEMISTRY ORDERABLES Performing Organization Address City/[facility]/ZIP Code Phon e Number [address] (ABNORMAL) Creatinine (01/27/2022 12:05 PM EDT) Analysis Performed At [facility] Time Signature Creatinine 2.06 (H) 0.80 - [facility] 1.50 mg/dL [facility] LABORATORY Estimated GFR 44 (L) >=60 [facility] mL/min/1.7 [facility] 3 ?? [facility] LABORATORY Comment: This patient's estimated GFR was [...] Organization Address City/State/[place] [address] Scan, Peripheral Blood (01/27/2022 10:22 AM EDT) [email or web address] Method Time Signature Plat Estimate Decreased [facility] LABORATORY RBC Morphology Normal [facility] LABORATORY Specimen Anatomical Collection Method Collection Time Receive d Time (Source) Location / / Volume Laterality Blood 01/27/2022 10:22 01/27/2022 AM EDT 10:38 AM EDT Resulting Agency Comment Spec In Lab Cristina B Rafy AGRICULTURAL EXTENSION OFFICER HEMATOLOGY ORDERABLES Performing Organization Address City/State/[place] [address] (ABNORMAL) Differential, Automated (01/27/2022 10:22 AM EDT) [facility] [employer] Method Time Signature Neutrophils % 61.9 % [facility] LABORATORY Neutr Abs (ANC) 11.72 (H) 1.70 - [facility] [place] 6.10 [facility] x10(3)/[facility] LABORATORY Lymphocytes % 7.8 % [facility] LABORATORY Lymphocytes Abs 1.5 0.9 - 3.2 [facility] x10(3)/[facility] LABORATORY Monocytes % 5.6 % [facility] LABORATORY Monocyte Abs 1.1 (H) 0.3 - 0.9 [facility] x10(3)/[facility] LABORATORY Eosinophils % 1.1 % [facility] LABORATORY Eosinophils Abs 0.2 0.0 - 0.4 [facility] x10(3)/[facility] LABORATORY Basophils % 0.1 % [facility] LABORATORY Basophils Abs 0.0 0.0 - 0.1 [facility] x10(3)/[facility] LABORATORY Immature Gran % 23.50 % [facility] LABORATORY Comment: Immature granulocytes(IG's)percentage an d absolute count will include metamyelocytes, myelocytes, and promyelo cytes. Blood smears from CBCs yielding IG's will be scanned manually for concor dance. If this scan disagrees with the automated IG or if promyelocytes are not ed, a manual differential will be performed. Gemini Gran Abs 4.45 (H) 0.00 - 0.04 x10(3)/[facility] LABORATORY Specimen Anatomical Collection Method Collection Time Receive d Time (Source) Location / / Volume Laterality Blood 01/27/2022 10:22 01/27/2022 AM EDT 10:38 AM EDT Resulting Agency Comment Spec In Lab Cristina Tongland AGRICULTURAL EXTENSION OFFICER HEMATOLOGY ORDERABLES Performing Organization Address City/State/[place] [address] (ABNORMAL) Hemogram (01/27/2022 10:22 AM EDT) [facility] gist Method Time Signature WBC 18.9 (H) 4.0 - 9.5 [facility] x[facility](3[facility] LABORATORY RBC 3.61 (L) 4.58 - [place] [place] 5.54 [facility] x10(6)/[facility] LABORATORY Hemoglobin 11.6 (L) 13.7 [facility] 16.5 g/dL [facility] LABORATORY Hematocrit 34.2 (L) 40.5 - [facility] % [facility] LAB[facility]ATORY MCV 94.7 (H) 82.9 - [facility] 93.1 [facility] LABORATORY MCH 32.1 27.5 - [facility] MANDO 32.1 pg [facility] LABORATORY MCHC 33.9 32.0 - [facility] MANDO 35.7 g/dL [facility] LABORATORY Platelets 100 (L) 145 - 357 [facility] x10(3)/[facility] LABORATORY RDWSD 43.3 36.0 - [facility] 45.0 [facility] LABORATORY RDWCV 12.6 11.4 - [facility] MANDO 13.8 % [facility] LABORATORY MPV 10.6 7.6 - 12.9 [facility] LABORATORY nRBC % Auto 0.1 % [facility] LABORATORY nRBC Abs Auto 0.020 (H) 0.000 - [facility] MANDO 0.000 [facility] x10(3)/[facility] LABORATORY Specimen Anatomical Collection Method Collection Time Receive d Time (Source) Location / / Volume Laterality Blood 01/27/2022 10:22 01/27/2022 AM EDT 10:38 AM EDT Resulting Agency Comment Spec In Lab Jaquelinma B Pentland AGRICULTURAL EXTENSION OFFICER HEMATOLOGY ORDERABLES Performing Organization Address City/State/[place] [address] [facility] LABOR[address]ORY Drive POCT Glucose (01/27/2022 8:30 AM EDT) athologist Signature POC Glucose 103 65 - 199 [facility] [place] mg/dL [facility] LABORATORY Comment: Supplemental ranges: <140 mg/dL before meals <180 mg/dL all other times of the day Specimen Anatomical Collection Method Collection Time Receive d Time (Source) Location / / Volume Laterality Blood 01/27/2022 8:30 AM 8:30 EDT AM EDT Beck Sanz MD POINT OF CARE TEST ORDERABLE S Performing Organization Address City/State/ZIP Code Phon e Number [address] (ABNORMAL) Blood Gas Venous (NLH) (01/27/2022 5:36 AM EDT) athologist Signature pH [place] 7.37 7.32 - [facility] [place] 7.42 [facility] LABORATORY pCO2 Honorio 47 41 - 51 [facility] LABORATORY pO2 Honorio 33 25 - 40 [facility] LABORATORY HCO3 [place] 26.4 mmol/L [facility] LABORATORY BE Honorio 1.2 mmol/L [facility] LABORATORY Hgb Blood Gas 16.1 13.7 - [facility] 16.5 g/dL [facility] LABORATORY O2HB Honorio 66.2 % [facility] LABORATORY COHB Honorio 1.5 % [facility] LABORATORY Comment: Nonsmokers: 0.5-1.5% COHB Smokers: Variable, but usually less than 10% Toxic: 20-30% COHB Lethal: Greater than 60% COHB METHB Honorio 0.3 <=1.5 % [facility] LABORATORY Na Whole Blood 133 (L) 135 - 145 mmol/L [facility] LABORATORY K Whole Blood 4.4 3.5 - 5.0 mmol/L [facility] LABORATORY Comment: Please note: Patients with WBC >100,000 may have falsely elevated Potassium levels. Contact the Clinical Chemistry L aboratory if there are any questions. ICa Whole Blood 1.14 (L) 1.15 - 1.33 mmol/L [facility] LABORATORY Comment: Note: ??Total bilirubin higher than 20 m g/dL may lead to falsely low ionized calcium. CL Whole Blood 102 98 - 107 mmol/L [facility] LABORATORY Gluc Whole Bld 106 65 - 199 mg/dL [facility] LABORATORY Comment: Diabetes: >=200 mg/dL plus symp toms Lactate WB 1.2 0.5 - 2.2 mmol/L [facility] LABORATORY BGas Source Venous [facility] LABORATORY Specimen Anatomical Collection Method Collection Time Receive d Time (Source) Location / / Volume Laterality Blood Venous Draw / 01/27/2022 5:36 AM 01/28/20 22 5:45 Unknown EDT AM EDT Resulting Agency Comment Spec In Lab Angelina Reynoso MD CHEMISTRY ORDERABLES Performing Organization Address City/State/[place] [address] (ABNORMAL) CK (01/27/2022 5:36 AM EDT) P athologist Signature CK, Total 21,662 (H) 0 - 200 [facility] [place] unit/L [facility] LABORATORY Specimen Anatomical Collection Method Collection Time Receive d Time (Source) Location / / Volume Laterality Blood 01/27/2022 5:36 AM 2 5:43 EDT AM EDT Resulting Agency Comment Spec In Lab Cristina Hillman APRN CHEMISTRY ORDERABLES Performing Organization Address City/[facility]/[place] [address] (ABNORMAL) Blood Gas Venous (NL[facility]) (01/27/2022 1:25 AM EDT) Analysis Performed At Patho logist Time Signature pH Honorio 7.44 (H) 7.32 - [facility] 7.42 [facility] LABORATORY pCO2 Honorio 39 (L) 41 - 51 [facility] LABORATORY pO2 Honorio 36 25 - 40 [facility] LABORATORY HCO3 Honorio 25.9 mmol/L [facility] LABORATORY BE Honorio 1.6 mmol/L [facility] LABORATORY Hgb Blood Gas 11.8 (L) 13.7 - [facility] 16.5 g/dL [facility] LABORATORY O2HB Honorio 73.6 % [facility] LABORATORY COHB Honorio 0.6 % [facility] LABORATORY Comment: Nonsmokers: 0.5-1.5% COHB Smokers: Variable, but usually less than 10% Toxic: 20-30% COHB Lethal: Greater than 60% COHB METHB Honorio 0.0 <=1.5 % [facility] LABORATORY Na Whole Blood 132 (L) 135 - 145 mmol/L [facility] LABORATORY K Whole Blood 4.3 3.5 - 5.0 mmol/L [facility] LABORATORY Comment: Please note: Patients with WBC >100,000 may have falsely elevated Potassium levels. Contact the Clinical Chemistry L aboratory if there are any questions. ICa Whole Blood 1.11 (L) 1.15 - 1.33 mmol/L [facility] LABORATORY Comment: Note: ??Total bilirubin higher than 20 m g/dL may lead to falsely low ionized calcium. CL Whole Blood 104 98 - 107 mmol/L [facility] LABORATORY Gluc Whole Bld 108 65 - 199 mg/dL [facility] LABORATORY Comment: Diabetes: >=200 mg/dL plus symp toms Lactate WB 1.6 0.5 - 2.2 mmol/L [facility] LABORATORY BGas Source Venous [facility] LABORATORY Specimen Anatomical Collection Method Collection Time Receive d Time (Source) Location / / Volume Laterality Blood Venous Draw / 01/27/2022 1:25 AM 01/28/20 22 1:31 Unknown EDT AM EDT Resulting Agency Comment Spec In Lab Angelina Reynoso MD CHEMISTRY ORDERABLES Performing Organization Address City/State/[place] [address] (ABNORMAL) CK (01/27/2022 1:25 AM EDT) P athologist Signature CK, Total 22,236 (H) 0 - 200 [facility] unit/L [facility] LABORATORY Specimen Anatomical Collection Method Collection Time Receive d Time (Source) Location / / Volume Laterality Blood 01/27/2022 1:25 AM 2 1:30 EDT AM EDT Resulting Agency Comment Spec In Lab Gemashley B Pentland AGRICULTURAL EXTENSION OFFICER CHEMISTRY ORDERABLES Performing Organization Address City/[facility]/[place] [address] (ABNORMAL) Hepatic Function Panel (01/27/2022 1:25 AM EDT) P athologist Signature Total Protein 4.3 (L) 6.1 - 8.0 [facility] g/dL [facility] Albumin 2.1 (L) 3.2 - 5.2 [facility] g/dL [facility] AST 618 (H) 0 - 39 [facility] unit/L [facility] ALT 418 (H) 0 - 55 [facility] unit/L [facility] Alk Phos 82 40 - 130 [facility] unit/L [facility] Total 0.9 0.2 - 1.3 [facility] Bilirubin mg/dL [facility] Bili, Direct 0.8 (H) 0.0 - 0.3 [facility] mg/dL [facility] Specimen Anatomical Collection Method Collection Time Receive d Time (Source) Location / / Volume Laterality Blood 01/27/2022 1:25 AM 2 1:30 EDT AM EDT Resulting Agency Comment Spec In Lab Gemma B Pentland AGRICULTURAL EXTENSION OFFICER CHEMISTRY ORDERABLES Performing Organization Address City/[facility]/[place] [address] (ABNORMAL) Basic Metabolic Panel (non-fasting) (01/27/2022 1:25 AM EDT) P athologist Signature Glucose Lvl 112 65 - 199 [facility] mg/dL [facility] Comment: Diabetes: >=200 mg/dL plus symp toms BUN 21 (H) 10 - 20 mg/dL [facility] Creatinine 2.12 (H) 0.80 - 1.50 mg/dL [facility] Sodium 135 135 - 145 mmol/L [facility] Potassium 4.4 3.5 - 5.0 mmol/L [facility] Comment: Please note: ??Patients with WBC >100,00 0 may have falsely elevated Potassium levels. ??For accurate Potassium quantif ication in these patients send serum separator tube (gold top) for subsequent determinations. ??Contact the Clinical Chemistry Laboratory if there are any qu estions. Chloride 104 98 - 107 mmol/L [facility] CO2 25 22 - 31 mmol/L [facility] Anion Gap 6 5 - 15 mmol/L [facility] Calcium 7.7 (L) 8.5 - 10.5 mg/dL [facility] Estimated GFR 42 (L) >=60 mL/min/1.73 m?? [facility] Comment: This patient's estimated GFR [...] Organization Address City/State/[place] [address] (ABNORMAL) Phosphorus (01/27/2022 1:25 AM EDT) P athologist Signature Phosphorus 1.6 (L) 2.5 - 4.5 [facility] [place] mg/dL [facility] Specimen Anatomical Collection Method Collection Time Receive d Time (Source) Location / / Volume Laterality Blood 01/27/2022 1:25 AM 2 1:30 EDT AM EDT Resulting Agency Comment Spec In Lab Gela Novak MD CHEMISTRY ORDERABLES Performing Organization Address City/State/ZIP Code Phon e Number [address] Magnesium (01/27/2022 1:25 AM EDT) P athologist Signature Magnesium 0.72 0.69 - 1.07 [facility] [place] mmol/L [facility] Specimen Anatomical Collection Method Collection Time Receive d Time (Source) Location / / Volume Laterality Blood 01/27/2022 1:25 AM 2 1:30 EDT AM EDT Resulting Agency Comment Spec In Lab Gela Novak MD CHEMISTRY ORDERABLES Performing Organization Address City/[facility]/[place] [address] POCT Glucose (01/26/2022 8:59 PM EDT) P athologist Signature POC Glucose 83 65 - 199 [facility] [place] mg/dL [facility] Comment: Supplemental ranges: <140 mg/dL before meals <180 mg/dL all other times of the day Specimen Anatomical Collection Method Collection Time Receive d Time (Source) Location / / Volume Laterality Blood 01/26/2022 8:59 PM 2 8:59 EDT PM EDT Beck Sanz MD POINT OF CARE TEST ORDERABLE S Performing Organization Address City/State/[place] [address] (ABNORMAL) Blood Gas Venous ([facility]) (01/26/2022 6:19 PM EDT) Analysis Performed At Patho logist Time Signature pH Honor[place] 7.34 7.32 - [facility] [place] 7.42 [facility] pCO2 Honorio 48 41 - 51 [facility] LABORATORY pO2 Honorio 32 25 - 40 [facility] LABORATORY HCO3 Honorio 25.4 mmol/L [facility] BE Honorio -0.3 mmol/L [facility] Hgb Blood Gas 12.0 (L) 13.7 - [facility] [place] 16.5 g/dL [facility] O2HB Honorio 59.2 % [facility] COHB Honorio 1.1 % [facility] Comment: Nonsmokers: 0.5-1.5% COHB Smokers: Variable, but usually less than 10% Toxic: 20-30% COHB Lethal: Greater than 60% COHB METHB Honorio 0.3 <=1.5 % [facility] Na Whole Blood 131 (L) 135 - 145 mmol/L [facility] K Whole Blood 4.1 3.5 - 5.0 mmol/L [facility] Comment: Please note: Patients with WBC >100,000 may have falsely elevated Potassium levels. Contact the Clinical Chemistry L aboratory if there are any questions. ICa Whole Blood 1.12 (L) 1.15 - 1.33 mmol/L [facility] Comment: Note: ??Total bilirubin higher than 20 m g/dL may lead to falsely low ionized calcium. CL Whole Blood 104 98 - 107 mmol/L [facility] Gluc Whole Bld 127 65 - 199 mg/dL [facility] Comment: Diabetes: >=200 mg/dL plus symp toms Lactate WB 1.5 0.5 - 2.2 mmol/L [facility] BGas Source Venous [facility] Specimen Anatomical Collection Method Collection Time Receive d Time (Source) Location / / Volume Laterality Blood Venous Draw / 01/26/2022 6:19 PM 01/27/20 22 6:32 Unknown EDT PM EDT Resulting Agency Comment Spec In Lab Angelina Reynoso MD CHEMISTRY ORDERABLES Performing Organization Address City/State/[place] [address] (ABNORMAL) CK (01/26/2022 6:19 PM EDT) P athologist Signature CK, Total 21,834 (H) 0 - 200 [facility] [place] unit/L [facility] Specimen Anatomical Collection Method Collection Time Receive d Time (Source) Location / / Volume Laterality Blood 01/26/2022 6:19 PM 2 6:31 EDT PM EDT Resulting Agency Comment Spec In Lab Cristina Hillman APRN CHEMISTRY ORDERABLES Performing Organization Address City/State/ZIP Code Phon e Number [address] POCT Glucose (01/26/2022 6:03 PM EDT) athologist Signature POC Glucose 108 65 - 199 [facility] mg/dL [facility] Comment: Supplemental ranges: <140 mg/dL before meals <180 mg/dL all other times of the day Specimen Anatomical Collection Method Collection Time Receive d Time (Source) Location / / Volume Laterality Blood 01/26/2022 6:03 PM 2 6:03 EDT PM EDT Beck Sanz MD POINT OF CARE TEST ORDERABLE S Performing Organization Address City/State/ZIP Code Phon e Number [address] POCT Glucose (01/26/2022 4:31 PM EDT) athologist Signature POC Glucose 112 65 - 199 [facility] mg/dL [facility] Comment: Supplemental ranges: <140 mg/dL before meals <180 mg/dL all other times of the day Specimen Anatomical Collection Method Collection Time Receive d Time (Source) Location / / Volume Laterality Blood 01/26/2022 4:31 PM 2 4:31 EDT PM EDT Beck Sanz MD POINT OF CARE TEST ORDERABLE S Performing Organization Address City/State/ZIP Code Phon e Number [address] POCT Glucose (01/26/2022 2:00 PM EDT) athologist Signature POC Glucose 89 65 - 199 [facility] mg/dL [facility] Comment: Supplemental ranges: <140 mg/dL before meals <180 mg/dL all other times of the day Specimen Anatomical Collection Method Collection Time Receive d Time (Source) Location / / Volume Laterality Blood 01/26/2022 2:00 PM 2:00 EDT PM EDT Beck Sanz MD POINT OF CARE TEST ORDERABLE S Performing Organization Address City/State/ZIP Code Phon e Number [place] [id number] (ABNORMAL) BLOOD GAS 2 VENOUS (01/26/2022 12:23 PM EDT) Analysis Performed At Patho logist Time Signature pH Honorio 7.42 7.32 - [facility] [place] 7.42 [facility] pCO2 Honorio 40 (L) 41 - 51 [facility] LABORATORY pO2 Honorio 33 25 - 40 [facility] LABORATORY HCO3 Honorio 25.4 mmol/L [facility] BE Honorio 1.0 mmol/L [facility] Hgb Blood Gas 12.1 (L) 13.7 - [facility] [place] 16.5 g/dL [facility] O2HB Honorio 65.4 % [facility] COHB Honorio 0.7 % [facility] Comment: Nonsmokers: 0.5-1.5% COHB Smokers: Variable, but usually less than 10% Toxic: 20-30% COHB Lethal: Greater than 60% COHB METHB Honorio 0.1 <=1.5 % [facility] Na Whole Blood 130 (L) 135 - 145 mmol/L [facility] K Whole Blood 3.8 3.5 - 5.0 mmol/L [facility] Comment: Please note: Patients with WBC >100,000 may have falsely elevated Potassium levels. Contact the Clinical Chemistry L aboratory if there are any questions. ICa Whole Blood 1.16 1.15 - 1.33 mmol/L [facility] Comment: Note: ??Total bilirubin higher than 20 m g/dL may lead to falsely low ionized calcium. CL Whole Blood 102 98 - 107 mmol/L [facility] Gluc Whole Bld 115 65 - 199 mg/dL [facility] Comment: Diabetes: >=200 mg/dL plus symp toms Lactate WB 0.9 0.5 - 2.2 mmol/L [facility] FIO2 Honorio 21 % [facility] BGas Source Central Venous [facility] Specimen Anatomical Collection Method Collection Time Receive d Time (Source) Location / / Volume Laterality Blood 01/26/2022 12:23 01/26/2022 PM EDT 12:23 PM EDT Beck Sanz MD CHEMISTRY ORDERABLES Performing Organization Address City/State/ZIP Code Phon e Number [address] (ABNORMAL) CK (01/26/2022 12:22 PM EDT) athologist Signature CK, Total 25,802 (H) 0 - 200 [facility] [place] unit/L [facility] Specimen Anatomical Collection Method Collection Time Receive d Time (Source) Location / / Volume Laterality Blood 01/26/2022 12:22 01/26/2022 PM EDT 12:29 PM EDT Resulting Agency Comment Spec In Lab Cristina Hillman APRN CHEMISTRY ORDERABLES Performing Organization Address City/State/ZIP Code Phon e Number [address] POCT Glucose (01/26/2022 12:05 PM EDT) athologist Signature POC Glucose 79 65 - [address] [facility] Comment: Supplemental ranges: <140 mg/dL before meals <180 mg/dL all other times of the day Specimen Anatomical Collection Method Collection Time Receive d Time (Source) Location / / Volume Laterality Blood 01/26/2022 12:05 01/26/2022 PM EDT 12:05 PM EDT Beck Sanz MD POINT OF CARE TEST ORDERABLE S Performing Organization Address City/State/ZIP Code Phon e Number [address] POCT Glucose (01/26/2022 11:08 AM EDT) athologist Signature POC Glucose 82 65 - 199 [facility] mg/dL [facility] Comment: Supplemental ranges: <140 mg/dL before meals <180 mg/dL all other times of the day Specimen Anatomical Collection Method Collection Time Receive d Time (Source) Location / / Volume Laterality Blood 01/26/2022 11:08 01/26/2022 AM EDT 11:08 AM EDT Beck Sanz MD POINT OF CARE TEST ORDERABLE S Performing Organization Address City/State/[place] [address] (ABNORMAL) POCT Glucose (01/26/2022 10:15 AM EDT) athologist Signature POC Glucose 59 (L) 65 - 199 [facility] mg/dL [facility] Comment: Supplemental ranges: <140 mg/dL before meals <180 mg/dL all other times of the day Specimen Anatomical Collection Method Collection Time Receive d Time (Source) Location / / Volume Laterality Blood 01/26/2022 10:15 01/26/2022 AM EDT 10:15 AM EDT Beck Sanz MD POINT OF CARE TEST ORDERABLE S Performing Organization Address City/State/[place] [address] POCT Glucose (01/26/2022 8:58 AM EDT) athologist Signature POC Glucose 75 65 - 199 [facility] mg/dL [facility] Comment: Supplemental ranges: <140 mg/dL before meals <180 mg/dL all other times of the day Specimen Anatomical Collection Method Collection Time Receive d Time (Source) Location / / Volume Laterality Blood 01/26/2022 8:58 AM 8:58 EDT AM EDT Beck Sanz MD POINT OF CARE TEST ORDERABLE S Performing Organization Address City/State/[place] [address] (ABNORMAL) POCT Glucose (01/26/2022 8:20 AM EDT) athologist Signature POC Glucose 49 65 - 199 [facility] (Critical) mg/dL [facility] Comment: Supplemental ranges: <140 mg/dL before meals <180 mg/dL all other times of the day Specimen Anatomical Collection Method Collection Time Receive d Time (Source) Location / / Volume Laterality Blood 01/26/2022 8:20 AM 2 8:20 EDT AM EDT Beck Sanz MD POINT OF CARE TEST ORDERABLE S Performing Organization Address City/State/[place] [address] (ABNORMAL) CK (01/26/2022 6:15 AM EDT) P athologist Signature CK, Total 27,357 (H) 0 - 200 [facility] [place] unit/L [facility] Specimen Anatomical Collection Method Collection Time Receive d Time (Source) Location / / Volume Laterality Blood 01/26/2022 6:15 AM 2 6:21 EDT AM EDT Resulting Agency Comment Spec In Lab Cristina Hillman APRN CHEMISTRY ORDERABLES Performing Organization Address City/State/[place] [address] (ABNORMAL) BLOOD GAS 2 VENOUS (01/26/2022 5:59 AM EDT) Analysis Performed At Patho logist Time Signature pH Honor[place] 7.40 7.32 - [facility] [place] 7.42 [facility] pCO2 Honorio 42 41 - 51 [facility] LABORATORY pO2 Honorio 32 25 - 40 [facility] LABORATORY HCO3 Honorio 25.9 mmol/L [facility] BE Honorio 1.1 mmol/L [facility] Hgb Blood Gas 12.5 (L) 13.7 - [facility] [place] 16.5 g/dL [facility] O2HB Honorio 62.3 % [facility] COHB Honorio 0.6 % [facility] Comment: Nonsmokers: 0.5-1.5% COHB Smokers: Variable, but usually less than 10% Toxic: 20-30% COHB Lethal: Greater than 60% COHB METHB Honorio 0.2 <=1.5 % [facility] Na Whole Blood 132 (L) 135 - 145 mmol/L [facility] K Whole Blood 4.0 3.5 - 5.0 mmol/L [facility] Comment: Please note: Patients with WBC >100,000 may have falsely elevated Potassium levels. Contact the Clinical Chemistry L aboratory if there are any questions. ICa Whole Blood 1.18 1.15 - 1.33 mmol/L [facility] Comment: Note: ??Total bilirubin higher than 20 m g/dL may lead to falsely low ionized calcium. CL Whole Blood 103 98 - 107 mmol/L [facility] Gluc Whole Bld 95 65 - 199 mg/dL [facility]ORY Comment: Diabetes: >=200 mg/dL plus symp toms Lactate WB 1.0 0.5 - 2.2 mmol/L [facility] FIO2 Honorio 21 % [facility] BGas Source Venous [facility] Specimen Anatomical Collection Method Collection Time Receive d Time (Source) Location / / Volume Laterality Blood 01/26/2022 5:59 AM 2 5:59 EDT AM EDT Beck Sanz MD CHEMISTRY ORDERABLES Performing Organization Address City/State/[place] [address] POCT Glucose (01/26/2022 5:09 AM EDT) P athologist Signature POC Glucose 103 65 - 199 [facility] [place] mg/dL [facility] Comment: Supplemental ranges: <140 mg/dL before meals <180 mg/dL all other times of the day Specimen Anatomical Collection Method Collection Time Receive d Time (Source) Location / / Volume Laterality Blood 01/26/2022 5:09 AM 2 5:09 EDT AM EDT Beck Sanz MD POINT OF CARE TEST ORDERABLE S Performing Organization Address City/State/[place] [address] (ABNORMAL) POCT Glucose (01/26/2022 4:21 AM EDT) athologist Signature POC Glucose 61 (L) 65 - 199 [facility] [place] mg/dL [facility] Comment: Supplemental ranges: <140 mg/dL before meals <180 mg/dL all other times of the day Specimen Anatomical Collection Method Collection Time Receive d Time (Source) Location / / Volume Laterality Blood 01/26/2022 4:21 AM 2 4:21 EDT AM EDT Beck Sanz MD POINT OF CARE TEST ORDERABLE S Performing Organization Address City/State/[place] [address] (ABNORMAL) BLOOD GAS 2 VENOUS (01/26/2022 12:26 AM EDT) athologist Signature pH Honorio 7.38 7.32 - [facility] [place] 7.42 [facility] pCO2 Honorio 47 41 - 51 [facility] LABORATORY pO2 Honorio 32 25 - 40 [facility] LABORATORY HCO3 Honorio 27.4 mmol/L [facility] BE Honorio 2.3 mmol/L [facility] Hgb Blood Gas 13.7 13.7 - [facility] [place] 16.5 g/dL [facility] O2HB Honorio 60.6 % [facility] COHB Honorio 0.8 % [facility] Comment: Nonsmokers: 0.5-1.5% COHB Smokers: Variable, but usually less than 10% Toxic: 20-30% COHB Lethal: Greater than 60% COHB METHB Honorio 0.0 <=1.5 % [facility] Na Whole Blood 133 (L) 135 - 145 mmol/L [facility] K Whole Blood 4.3 3.5 - 5.0 mmol/L [facility]ORY Comment: Please note: Patients with WBC >100,000 may have falsely elevated Potassium levels. Contact the Clinical Chemistry L aboratory if there are any questions. ICa Whole Blood 1.17 1.15 - 1.33 mmol/L [facility] Comment: Note: ??Total bilirubin higher than 20 m g/dL may lead to falsely low ionized calcium. CL Whole Blood 103 98 - 107 mmol/L [facility] Gluc Whole Bld 101 65 - 199 mg/dL [facility] Comment: Diabetes: >=200 mg/dL plus symp toms Lactate WB 1.3 0.5 - 2.2 mmol/L [facility] FIO2 Honorio 21 % [facility] BGas Source Venous [facility] Specimen Anatomical Collection Method Collection Time Receive d Time (Source) Location / / Volume Laterality Blood 01/26/2022 12:26 01/26/2022 AM EDT 12:26 AM EDT Beck Sanz MD CHEMISTRY ORDERABLES Performing Organization Address City/[facility]/[place] [address] Scan, Peripheral Blood (01/26/2022 12:20 AM EDT) [email or web address] Method Time Signature Plat Estimate Decreased [facility] RBC Morphology Abnormal [facility] Polychromasia Present >5/HPF [facility] Pappenheimer Bdy Present >1/HPF [facility] Specimen Anatomical Collection Method Collection Time Receive d Time (Source) Location / / Volume Laterality Blood 01/26/2022 12:20 01/26/2022 AM EDT 12:29 AM EDT Resulting Agency Comment Spec In Lab Cristina Hillman APRN HEMATOLOGY ORDERABLES Performing Organization Address City/[facility]/[place] [address] (ABNORMAL) Differential, Automated (01/26/2022 12:20 AM EDT) [email or web address] Method Time Signature Neutrophils % 69.3 % [facility] Neutr Abs (ANC) 8.94 (H) 1.70 - [facility] [place] 6.10 [facility] x10(3)/[facility] L LABORATORY Lymphocytes % 13.7 % [facility] Lymphocytes Abs 1.8 0.9 - 3.2 [facility] [place] x10(3)/[facility] LABORATORY Monocytes % 5.7 % [facility] Monocyte Abs 0.7 0.3 - 0.9 [facility] [place] x10(3)/[facility] LABORATORY Eosinophils % 2.0 % [facility] Eosinophils Abs 0.3 0.0 - 0.4 [facility] [place] x10(3)/[facility] LABORATORY Basophils % 0.1 % [facility] Basophils Abs 0.0 0.0 - 0.1 [facility] [place] x10(3)/[facility] LABORATORY Immature Gran % 9.20 % [facility] Comment: Immature granulocytes(IG's)percentage an d absolute count will include metamyelocytes, myelocytes, and promyelo cytes. Blood smears from CBCs yielding IG's will be scanned manually for concor dance. If this scan disagrees with the automated IG or if promyelocytes are not ed, a manual differential will be performed. Gemini Gran Abs 1.19 (H) 0.00 - 0.04 x10(3)/[facility] LABORATORY Specimen Anatomical Collection Method Collection Time Receive d Time (Source) Location / / Volume Laterality Blood 01/26/2022 12:20 01/26/2022 AM EDT 12:29 AM EDT Resulting Agency Comment Spec In Lab Jaquelinnv Sal Hillman APRN HEMATOLOGY ORDERABLES Performing Organization Address City/State/[place] [address] (ABNORMAL) Hemogram (01/26/2022 12:20 AM EDT) [facility] gist Method Time Signature WBC 12.9 (H) 4.0 - 9.5 [facility] [place] x10(3)/[facility] LABORATORY RBC 3.53 (L) 4.58 - [facility] [place] 5.54 [facility] x10(6)/[facility] LABORATORY Hemoglobin 11.5 (L) 13.7 - [facility] 16.5 g/dL [facility] Hematocrit 33.2 (L) 40.5 - [facility] [place] 48.5 % [facility] MCV 94.1 (H) 82.9 - [facility] 93.1 [facility] LABORATORY MCH 32.6 (H) 27.5 - [facility] 32.1 pg [facility] LAB[facility] MCHC 34.6 32.0 - [facility] 35.7 g/dL [facility] Platelets 115 (L) 145 - 357 [facility] x10(3)/[facility] LABORATORY RDWSD 43.1 36.0 - [place] [place] 45.0 [facility] LABORATORY RDWCV 12.4 11.4 - [facility] 13.8 % [facility] MPV 10.6 7.6 - 12.9 [facility] nRBC % Auto 0.2 % [facility] LABORATORY nRBC Abs Auto 0.020 (H) 0.000 - [place] [place] 0.000 [facility] x10(3)/[facility] LABORATORY Specimen Anatomical Collection Method Collection Time Receive d Time (Source) Location / / Volume Laterality Blood 01/26/2022 12:20 01/26/2022 AM EDT 12:29 AM EDT Resulting Agency Comment Spec In Lab Cristina Hillman AGRICULTURAL EXTENSION OFFICER HEMATOLOGY ORDERABLES Performing Organization Address City/State/[place] [address] (ABNORMAL) Hepatic Function Panel (01/26/2022 12:20 AM EDT) P athologist Signature Total Protein 4.5 (L) 6.1 - 8.0 [facility] [place] g/dL [facility] Albumin 2.3 (L) 3.2 - 5.2 [facility] [place] g/dL [facility] [facility] AST 710 (H) 0 - 39 [facility] M[facility]O unit/L [facility] ALT 591 (H) 0 - 55 [facility] MANDO unit/L [facility] Alk Phos 56 40 - 130 [facility] MANDO unit/L [facility] Total 0.4 0.2 - 1.3 [facility] M[facility]O Bilirubin mg/dL [facility] Bili, Direct 0.2 0.0 - 0.3 [facility] MANDO mg/dL [facility] Specimen Anatomical Collection Method Collection Time Receive d Time (Source) Location / / Volume Laterality Blood 01/26/2022 12:20 01/26/2022 AM EDT 12:29 AM EDT Resulting Agency Comment Spec In Lab Cristina Huang Rafy AVENDAÑO CHEMISTRY ORDERABLES Performing Organization Address City/State/[place] [address] (ABNORMAL) Basic Metabolic Panel (non-fasting) (01/26/2022 12:20 AM EDT) athologist Signature Glucose Lvl 104 65 - 199 [facility] [place] mg/dL [facility] Comment: Diabetes: >=200 mg/dL plus symp toms BUN 26 (H) 10 - 20 mg/dL [facility] Creatinine 1.89 (H) 0.80 - 1.50 mg/dL [facility] Sodium 137 135 - 145 mmol/L [facility] Potassium 4.6 3.5 - 5.0 mmol/L [facility] Comment: Please note: ??Patients with WBC >100,00 0 may have falsely elevated Potassium levels. ??For accurate Potassium quantif ication in these patients send serum separator tube (gold top) for subsequent determinations. ??Contact the Clinical Chemistry Laboratory if there are any qu estions. Chloride 103 98 - 107 mmol/L [facility] CO2 27 22 - 31 mmol/L [facility] Anion Gap 7 5 - 15 mmol/L [facility] Calcium 8.3 (L) 8.5 - 10.5 mg/dL [facility] Estimated GFR 48 (L) >=60 mL/min/1.73 m?? [facility] Comment: This patient's estimated GFR [...] Han DO CHEMISTRY ORDERABLES Performing Organization Address City/[facility]/ZIP Code Phon e Number [address] Phosphorus (01/26/2022 12:20 AM EDT) P athologist Signature Phosph[facility] 3.0 2.5 - 4.5 [facility] Specimen Anatomical Collection Method Collection Time Receive d Time (Source) Location / / Volume Laterality Blood 01/26/2022 12:20 01/26/2022 AM EDT 12:29 AM EDT Resulting Agency Comment Spec In Lab Gela Novak MD CHEMISTRY ORDERABLES Performing Organization Address City/[facility]/ZIP Code Phon e Number [address] Magnesium (01/26/2022 12:20 AM EDT) P athologist Signature Magnesium 0.85 0.69 - 1.07 [facility] [place] mmol/L [facility] Specimen Anatomical Collection Method Collection Time Receive d Time (Source) Location / / Volume Laterality Blood 01/26/2022 12:20 01/26/2022 AM EDT 12:29 AM EDT Resulting Agency Comment Spec In Lab Gela Novak MD CHEMISTRY ORDERABLES Performing Organization Address City/[facility]/ZIP Code Phon e Number [address] Triglyceride (01/26/2022 12:20 AM EDT) P athologist Signature Triglycerides 359 mg/dL [facility] Comment: Average Risk/Lower Risk: <150 mg/dL Borderline High Risk: 150-199 mg/dL High Risk: 200-499 mg/dL Very High Risk: >hf=399 mg/dL Specimen Anatomical Collection Method Collection Time Receive d Time (Source) Location / / Volume Laterality Blood 01/26/2022 12:20 01/26/2022 AM EDT 12:29 AM EDT Resulting Agency Comment Spec In Lab Beck Sanz MD CHEMISTRY ORDERABLES Performing Organization Address City/[facility]/ZIP Code Phon e Number [address] POCT Glucose (01/26/2022 12:01 AM EDT) athologist Signature POC Glucose 94 65 - [address] [address] Comment: Supplemental ranges: <140 mg/dL before meals <180 mg/dL all other times of the day Specimen Anatomical Collection Method Collection Time Receive d Time (Source) Location / / Volume Laterality Blood 01/26/2022 12:01 01/26/2022 AM EDT 12:01 AM EDT Beck Sanz MD POINT OF CARE TEST ORDERABLE S Performing Organization Address City/State/ZIP Code Phon e Number [address] POCT Glucose (01/25/2022 8:08 PM EDT) athologist Signature POC Glucose 101 65 - [address] [address] [facility]/dL [facility] Comment: Supplemental ranges: <140 mg/dL before meals <180 mg/dL all other times of the day Specimen Anatomical Collection Method Collection Time Receive d Time (Source) Location / / Volume Laterality Blood 01/25/2022 8:08 PM 8:08 EDT PM EDT Beck Sanz MD POINT OF CARE TEST ORDERABLE S Performing Organization Address City/State/[place] [address] (ABNORMAL) BLOOD GAS 2 VENOUS (01/25/2022 6:07 PM EDT) athologist Signature pH Honorio 7.37 7.32 - [facility] [place] 7.42 [facility] pCO2 Honorio 45 41 - 51 [facility] LABORATORY pO2 Honorio 31 25 - 40 [facility] LAB[facility]ORY HCO3 Honorio 25.5 mmol/L [facility] BE Honorio 0.2 mmol/L [facility] Hgb Blood Gas 14.1 13.7 - [facility] [place] 16.5 g/dL [facility] O2HB Honorio 59.1 % [facility] COHB Honorio 1.3 % [facility] Comment: Nonsmokers: 0.5-1.5% COHB Smokers: Variable, but usually less than 10% Toxic: 20-30% COHB Lethal: Greater than 60% COHB METHB Honorio 0.0 <=1.5 % [facility] Na Whole Blood 132 (L) 135 - 145 mmol/L [facility] K Whole Blood 4.4 3.5 - 5.0 mmol/L [facility] Comment: Please note: Patients with WBC >100,000 may have falsely elevated Potassium levels. Contact the Clinical Chemistry L aboratory if there are any questions. ICa Whole Blood 1.20 1.15 - 1.33 mmol/L [facility] Comment: Note: ??Total bilirubin higher than 20 m g/dL may lead to falsely low ionized calcium. CL Whole Blood 102 98 - 107 mmol/L [facility] Gluc Whole Bld 119 65 - 199 mg/dL [facility] Comment: Diabetes: >=200 mg/dL plus symp toms Lactate WB 1.0 0.5 - 2.2 mmol/L [facility] FIO2 Honorio 21 % [facility] BGas Source Central Venous [facility] Specimen Anatomical Collection Method Collection Time Receive d Time (Source) Location / / Volume Laterality Blood 01/25/2022 6:07 PM 6:07 EDT PM EDT Beck Sanz MD CHEMISTRY ORDERABLES Performing Organization Address City/State/[place] [address] (ABNORMAL) CK (01/25/2022 6:00 PM EDT) athologist Signature CK, Total 32,675 (H) 0 - 200 [facility] [place] unit/L [facility] Specimen Anatomical Collection Method Collection Time Receive d Time (Source) Location / / Volume Laterality Blood 01/25/2022 6:00 PM 2 6:12 EDT PM EDT Resulting Agency Comment Spec In Lab Cristina Hillman APRN CHEMISTRY ORDERABLES Performing Organization Address City/State/[place] [address] POCT Glucose (01/25/2022 4:09 PM EDT) athologist Signature POC Glucose 103 65 - 199 [facility] [place] mg/dL [facility] Comment: Supplemental ranges: <140 mg/dL before meals <180 mg/dL all other times of the day Specimen Anatomical Collection Method Collection Time Receive d Time (Source) Location / / Volume Laterality Blood 01/25/2022 4:09 PM 2 4:09 EDT PM EDT Beck Sanz MD POINT OF CARE TEST ORDERABLE S Performing Organization Address City/State/[place] [address] (ABNORMAL) BLOOD GAS 2 VENOUS (01/25/2022 11:59 AM EDT) Analysis Performed At Patho logist Time Signature pH Honorio 7.40 7.32 - [facility] [place] 7.42 [facility] pCO2 Honorio 45 41 - 51 [facility] LABORATORY pO2 Honorio 34 25 - 40 [facility] LAB[facility]ORY HCO3 Honorio 27.0 mmol/L [facility] BE Honorio 2.2 mmol/L [facility] Hgb Blood Gas 12.2 (L) 13.7 - [facility] [place] 16.5 g/dL [facility] O2HB Honorio 64.3 % [facility] COHB Honorio 0.2 % [facility] Comment: Nonsmokers: 0.5-1.5% COHB Smokers: Variable, but usually less than 10% Toxic: 20-30% COHB Lethal: Greater than 60% COHB METHB Honorio 0.3 <=1.5 % [facility] Na Whole Blood 132 (L) 135 - 145 mmol/L [facility] K Whole Blood 4.6 3.5 - 5.0 mmol/L [facility] Comment: Please note: Patients with WBC >100,000 may have falsely elevated Potassium levels. Contact the Clinical Chemistry L aboratory if there are any questions. ICa Whole Blood 1.22 1.15 - 1.33 mmol/L [facility] Comment: Note: ??Total bilirubin higher than 20 m g/dL may lead to falsely low ionized calcium. CL Whole Blood 103 98 - 107 mmol/L [facility] Gluc Whole Bld 115 65 - 199 mg/dL [facility] Comment: Diabetes: >=200 mg/dL plus symp toms Lactate WB 1.3 0.5 - 2.2 mmol/L [facility] FIO2 Honorio 21 % [facility] BGas Source Central Venous [facility] Specimen Anatomical Collection Method Collection Time Receive d Time (Source) Location / / Volume Laterality Blood 01/25/2022 11:59 01/25/2022 AM EDT 11:59 AM EDT Beck Sanz MD CHEMISTRY ORDERABLES Performing Organization Address City/[facility]/[place] [address] POCT Glucose (01/25/2022 11:56 AM EDT) P athologist Signature POC Glucose 88 65 - 199 [facility] [place] mg/dL [facility] Comment: Supplemental ranges: <140 mg/dL before meals <180 mg/dL all other times of the day Specimen Anatomical Collection Method Collection Time Receive d Time (Source) Location / / Volume Laterality Blood 01/25/2022 11:56 01/25/2022 AM EDT 11:56 AM EDT Beck Sanz MD POINT OF CARE TEST ORDERABLE S Performing Organization Address City/[facility]/[place] [address] Phosphorus (01/25/2022 11:55 AM EDT) P athologist Signature Phosphorus 2.7 2.5 - 4.5 [facility] mg/dL [facility] Specimen Anatomical Collection Method Collection Time Receive d Time (Source) Location / / Volume Laterality Blood 01/25/2022 11:55 01/25/2022 AM EDT 12:05 PM EDT Resulting Agency Comment Spec In Lab Angelina Reynoso MD CHEMISTRY ORDERABLES Performing Organization Address City/State/ZIP Code Phon e Number [address] Magnesium (01/25/2022 11:55 AM EDT) P athologist Signature Magnesium 0.80 0.69 - 1.07 [facility] MANDO mmol/L [facility] Specimen Anatomical Collection Method Collection Time Receive d Time (Source) Location / / Volume Laterality Blood 01/25/2022 11:55 01/25/2022 AM EDT 12:05 PM EDT Resulting Agency Comment Spec In Lab Angelina Reynoso MD CHEMISTRY ORDERABLES Performing Organization Address City/State/ZIP Code Phon e Number [address] (ABNORMAL) Creatinine (01/25/2022 11:55 AM EDT) Analysis Performed At Patho logist Time Signature Creatinine 2.06 (H) 0.80 - [facility] [place] 1.50 mg/dL [facility] Estimated GFR 44 (L) >=60 [facility] [place] mL/min/1.7 [facility] 3 [facility] LABORATORY Comment: This patient's estimated GFR was [...] Reynoso MD CHEMISTRY ORDERABLES Performing Organization Address City/[facility]/[place] [address] (ABNORMAL) BUN (01/25/2022 11:55 AM EDT) P athologist Signature BUN 28 (H) 10 - 20 [facility] [place] mg/dL [facility] Specimen Anatomical Collection Method Collection Time Receive d Time (Source) Location / / Volume Laterality Blood 01/25/2022 11:55 01/25/2022 AM EDT 12:05 PM EDT Resulting Agency Comment Spec In Lab Angelina Reynoso MD CHEMISTRY ORDERABLES Performing Organization Address City/[facility] [place] [address] Electrolytes panel (01/25/2022 11:55 AM EDT) P athologist Signature Sodium 137 135 - 145 [facility] [place] mmol/L [facility] Potassium 4.7 3.5 - 5.0 [facility] [place] mmol/L [facility] Comment: Please note: ??Patients with WBC >100,00 0 may have falsely elevated Potassium levels. ??For accurate Potassium quantif ication in these patients send serum separator tube (gold top) for subsequent determinations. ??Contact the Clinical Chemistry Laboratory if there are any qu estions. Chloride 104 98 - 107 mmol/L [facility] CO2 25 22 - 31 mmol/L [facility] Anion Gap 8 5 - 15 mmol/L [facility] Specimen Anatomical Collection Method Collection Time Receive d Time (Source) Location / / Volume Laterality Blood 01/25/2022 11:55 01/25/2022 AM EDT 12:05 PM EDT Resulting Agency Comment Spec In Lab Angelina Reynoso MD CHEMISTRY ORDERABLES Performing Organization Address City/[facility]/[place] [address] (ABNORMAL) CK (01/25/2022 11:55 AM EDT) athologist [facility] [place] CK, Total 36,897 (H) 0 - 200 [facility] LABORATORY Specimen Anatomical Collection Method Collection Time Receive d Time (Source) Location / / Volume Laterality Blood 01/25/2022 11:55 01/25/2022 AM EDT 12:05 PM EDT Resulting Agency Comment Spec In Lab Gemma B Pentland AGRICULTURAL EXTENSION OFFICER CHEMISTRY ORDERABLES Performing Organization Address City/State/ZIP Code Phon e Number [address] POCT Glucose (01/25/2022 8:31 AM EDT) [facility] POC Glucose 113 65 - 199 [facility] Comment: Supplemental ranges: <140 mg/dL before meals <180 mg/dL all other times of the day Specimen Anatomical Collection Method Collection Time Receive d Time (Source) Location / / Volume Laterality Blood 01/25/2022 8:31 AM 2 8:31 EDT AM EDT Tex Robles MD POINT OF CARE TEST ORDERABLE S Performing Organization Address City/State/[place] [address] (ABNORMAL) CK (01/25/2022 8:20 AM EDT) [facility] CK, Total 36,878 (H) 0 - 200 [facility] LABORATORY Specimen Anatomical Collection Method Collection Time Receive d Time (Source) Location / / Volume Laterality Blood 01/25/2022 8:20 AM 2 8:37 EDT AM EDT Resulting Agency Comment Spec In Lab Gemma B Pentland AGRICULTURAL EXTENSION OFFICER CHEMISTRY ORDERABLES Performing Organization Address City/State/[place] [address] (ABNORMAL) BLOOD GAS 2 ARTERIAL (01/25/2022 6:22 AM EDT) Analysis Performed At Patho logist Time Signature pH Art 7.45 7.35 - [facility] [place] 7.45 [facility] pCO2 Art 33 (L) 35 - 45 [facility] [place] mmHg [facility] pO2 Art 114 (H) 85 - 104 [facility] HCO3 Art 22.4 20.0 - [facility] [place] 26.0 [facility] mmol/L [facility]ATORY BE Art -1.6 -3.0 - 3.0 [facility] [place] mmol/L [facility] Hgb Blood Gas 13.3 (L) 13.7 - [facility] [place] 16.5 g/dL [facility] O2HB Art 97.0 94.0 - [facility] [place] 97.0 % [facility] COHB Art 0.3 % [facility] Comment: Nonsmokers: 0.5-1.5% COHB Smokers: Variable, but usually less than 10% Toxic: 20-30% COHB Lethal: Greater than 60% COHB METHB Art 0.2 <=1.5 % [facility] Na Whole Blood 131 (L) 135 - 145 mmol/L [facility] K Whole Blood 5.0 3.5 - 5.0 mmol/L [facility] Comment: Please note: Patients with WBC >100,000 may have falsely elevated Potassium levels. Contact the Clinical Chemistry L aboratory if there are any questions. ICa Whole Blood 1.21 1.15 - 1.33 mmol/L [facility] Comment: Note: ??Total bilirubin higher than 20 m g/dL may lead to falsely low ionized calcium. CL Whole Blood 103 98 - 107 mmol/L [facility] Gluc Whole Bld 122 65 - 199 mg/dL [facility] Comment: Diabetes: >=200 mg/dL plus symp toms. Lactate WB 1.3 0.5 - 2.2 mmol/L [facility] FIO2 Art 35 % [facility] PF Ratio Art [address] [facility] Specimen Anatomical Collection Method Collection Time Receive d Time (Source) Location / / Volume Laterality Blood 01/25/2022 6:22 AM 2 6:22 EDT AM EDT Tex Robles MD CHEMISTRY ORDERABLES Performing Organization Address City/[facility]/ZIP Code Phon e Number [address] POCT Glucose (01/25/2022 3:49 AM EDT) P athologist Signature POC Glucose 121 65 - 199 [facility] [place] mg/dL [facility] Comment: Supplemental ranges: <140 mg/dL before meals <180 mg/dL all other times of the day Specimen Anatomical Collection Method Collection Time Receive d Time (Source) Location / / Volume Laterality Blood 01/25/2022 3:49 AM 2 3:49 EDT AM EDT Tex Robles MD POINT OF CARE TEST ORDERABLE S Performing Organization Address City/[facility]/[place] [address] Scan, Peripheral Blood (01/25/2022 12:30 AM EDT) [facility] [employer] Method Time Signature Plat Estimate Decreased [facility] RBC Morphology Normal [facility] Specimen Anatomical Collection Method Collection Time Receive d Time (Source) Location / / Volume Laterality Blood 01/25/2022 12:30 01/25/2022 AM EDT 12:39 AM EDT Resulting Agency Comment Spec In Lab Cristina Hillman APRN HEMATOLOGY ORDERABLES Performing Organization Address City/[facility]/[place] [address] (ABNORMAL) Differential, Automated (01/25/2022 12:30 AM EDT) [email or web address] Method Time Signature Neutrophils % 77.1 % [facility] Neutr Abs (ANC) 6.61 (H) 1.70 - [facility] [place] 6.10 [facility] x10(3)/[facility] LABORATORY Lymphocytes % 12.9 % [facility] Lymphocytes Abs 1.1 0.9 - 3.2 [facility] [place] x10(3)/[facility] LABORATORY Monocytes % 7.5 % [facility] Monocyte Abs 0.6 0.3 - 0.9 [facility] [place] x10(3)/[facility] LABORATORY Eosinophils % 0.3 % [facility] Eosinophils Abs 0.0 0.0 - 0.4 [facility] [place] x10(3)/[facility] LABORATORY Basophils % 0.3 % [facility] Basophils Abs 0.0 0.0 - 0.1 [facility] [place] x10(3)/[facility] LABORATORY Immature Gran % 1.90 % [facility] Comment: Immature granulocytes(IG's)percentage an d absolute count will include metamyelocytes, myelocytes, and promyelo cytes. Blood smears from CBCs yielding IG's will be scanned manually for concor dance. If this scan disagrees with the automated IG or if promyelocytes are not ed, a manual differential will be performed. Gemini Gran Abs 0.16 (H) 0.00 - 0.04 x10(3)/[facility] LABORATORY Specimen Anatomical Collection Method Collection Time Receive d Time (Source) Location / / Volume Laterality Blood 01/25/2022 12:30 01/25/2022 AM EDT 12:39 AM EDT Resulting Agency Comment Spec In Lab Cristina Hillman APRN HEMATOLOGY ORDERABLES Performing Organization Address City/State/[place] [address] (ABNORMAL) Hemogram (01/25/2022 12:30 AM EDT) Analysis Performed At Patho logist Time Signature WBC 8.6 4.0 - 9.5 [facility] [place] x10(3)/[facility] LABORATORY RBC 3.39 (L) 4.58 - [facility] [place] 5.54 [facility] x10(6)/[facility] LABORATORY Hemoglobin 11.0 (L) 13.7 - [facility] [place] 16.5 g/dL [facility] Hematocrit 31.2 (L) 40.5 - [facility] [place] 48.5 % [facility] MCV 92.0 82.9 - [facility] [place] 93.1 [facility] LABORATORY MCH 32.4 (H) 27.5 - [facility] 32.1 pg [facility] MCHC 35.3 32.0 - [facility] MAND[facility] 35.7 g/dL [facility] Platelets 88 (L) 145 - 357 [facility] [place] x10(3)/[facility] LABORATORY RDWSD 41.2 36.0 - [facility] GIL[place] 45.0 [facility] LABORATORY RDWCV 12.2 11.4 - [facility] MANDO 13.8 % [facility] MPV 10.6 7.6 - 12.9 [facility] nRBC % Auto 0.0 % [facility] nRBC Abs Auto 0.000 0.000 - [facility] [place] 0.000 [facility] x10(3)/[facility] LABORATORY Specimen Anatomical Collection Method Collection Time Receive d Time (Source) Location / / Volume Laterality Blood 01/25/2022 12:30 01/25/2022 AM EDT 12:39 AM EDT Resulting Agency Comment Spec In Lab Gemma B Pentland AGRICULTURAL EXTENSION OFFICER HEMATOLOGY ORDERABLES Performing Organization Address City/State/[place] [address] (ABNORMAL) CK (01/25/2022 12:30 AM EDT) P athologist [facility] [place] CK, Total 42,239 (H) 0 - 200 [facility] [place] unit/L [facility] Specimen Anatomical Collection Method Collection Time Receive d Time (Source) Location / / Volume Laterality Blood 01/25/2022 12:30 01/25/2022 AM EDT 12:39 AM EDT Resulting Agency Comment Spec In Lab Gemma B Pentland AGRICULTURAL EXTENSION OFFICER CHEMISTRY ORDERABLES Performing Organization Address City/State/ZIP Code Phon e Number [address] (ABNORMAL) Hepatic Function Panel (01/25/2022 12:30 AM EDT) P athologist Signature Total Protein 4.1 (L) 6.1 - 8.[address] [facility] g/dL [facility] Albumin 2.0 (L) 3.2 - 5.2 [facility] MANDO g/dL [facility] AST 797 (H) 0 - 39 [facility] MANDO unit/L [facility] ALT 583 (H) 0 - 55 [facility] MANDO unit/L [facility] Alk Phos 51 40 - [address] [facility] [address] [facility]L [facility] Total 0.3 0.2 - 1.3 [facility] Bilirubin mg/dL [facility] Bili, Direct 0.1 0.0 - 0.[address] [address] [facility] mg/dL [facility] Specimen Anatomical Collection Method Collection Time Receive d Time (Source) Location / / Volume Laterality Blood 01/25/2022 12:30 01/25/2022 AM EDT 12:39 AM EDT Resulting Agency Comment Spec In Lab Cristina Hillman APRN CHEMISTRY ORDERABLES Performing Organization Address City/State/[place] [address] (ABNORMAL) Basic Metabolic Panel (non-fasting) (01/25/2022 12:30 AM EDT) athologist Signature Glucose Lvl 129 65 - 199 [facility] Comment: Diabetes: >=200 mg/dL plus symp toms BUN 30 (H) 10 - 20 mg/dL [facility] Creatinine 2.39 (H) 0.80 - 1.50 mg/dL [facility] Sodium 135 135 - 145 mmol/L [facility] Potassium 5.0 3.5 - 5.0 mmol/L [facility] Comment: Please note: ??Patients with WBC >100,00 0 may have falsely elevated Potassium levels. ??For accurate Potassium quantif ication in these patients send serum separator tube (gold top) for subsequent determinations. ??Contact the Clinical Chemistry Laboratory if there are any qu estions. Chloride 105 98 - 107 mmol/L [facility] CO2 24 22 - 31 mmol/L [facility] Anion Gap 6 5 - 15 mmol/L [facility] Calcium 8.2 (L) 8.5 - 10.5 mg/dL [facility] Estimated GFR 36 (L) >=60 mL/min/1.73 m?? [facility] Comment: This patient's estimated GFR [...] Organization Address City/State/ZIP Code Phon e Number [address] Phosphorus (01/25/2022 12:30 AM EDT) P athologist Signature Phosphorus 3.9 2.5 - 4.[address] [facility]/dL [facility] Specimen Anatomical Collection Method Collection Time Receive d Time (Source) Location / / Volume Laterality Blood 01/25/2022 12:30 01/25/2022 AM EDT 12:39 AM EDT Resulting Agency Comment Spec In Lab Gela Novak MD CHEMISTRY ORDERABLES Performing Organization Address City/State/ZIP Code Phon e Number [address] Magnesium (01/25/2022 12:30 AM EDT) P athologist Signature Magnesium 0.89 0.69 - 1.07 [facility] mmol/L [facility] Specimen Anatomical Collection Method Collection Time Receive d Time (Source) Location / / Volume Laterality Blood 01/25/2022 12:30 01/25/2022 AM EDT 12:39 AM EDT Resulting Agency Comment Spec In Lab Gela Novak MD CHEMISTRY ORDERABLES Performing Organization Address City/State/ZIP Code Phon e Number [address] POCT Glucose (01/25/2022 12:19 AM EDT) P athologist Signature POC Glucose 126 65 - [address] [facility] mg/dL [facility] Comment: Supplemental ranges: <140 mg/dL before meals <180 mg/dL all other times of the day Specimen Anatomical Collection Method Collection Time Receive d Time (Source) Location / / Volume Laterality Blood 01/25/2022 12:19 01/25/2022 AM EDT 12:19 AM EDT Tex Robles MD POINT OF CARE TEST ORDERABLE S Performing Organization Address City/[facility]/[place] [address] Angiogram Carotids (01/24/2022 [...] who have questions please contact the health manager wound care that requested your imaging first. ? Narrative 01/25/2022 10:26 AM EDT EXAMINATION: CT ANGIOGRAM [place], [place] ANGIOGRAM CAROTIDS CLINICAL HISTORY: [...] different from the original. EXAMINATION: CT ANGIOGRAM [place], CT ANGIOGRAM CAROTIDS CLINICAL [...] ho have questions please contact the health manager wound care that requested your imaging first. Agnieszka López AGRICULTURAL EXTENSION OFFICER IMG CT ORDERABLES CT Angiogram [place] (01/24/2022 11:32 PM EDT) Anatomical [...] who have questions please contact the health manager wound care that requested your imaging first. ? Narrative 01/25/2022 10:26 AM EDT EXAMINATION: CT ANGIOGRAM [place], [place] ANGIOGRAM CAROTIDS CLINICAL HISTORY: [...] different from the original. EXAMINATION: CT ANGIOGRAM [place], CT ANGIOGRAM CAROTIDS CLINICAL [...] ho have questions please contact the health manager wound care that requested your imaging first. Agnieszka López AGRICULTURAL EXTENSION OFFICER IMG CT ORDERABLES POCT Glucose (01/24/2022 8:11 PM EDT) athologist Signature POC Glucose 135 65 - 199 [facility] mg/dL [facility] Comment: Supplemental ranges: <140 mg/dL before meals <180 mg/dL all other times of the day Specimen Anatomical Collection Method Collection Time Receive d Time (Source) Location / / Volume Laterality Blood 01/24/2022 8:11 PM 2 8:11 EDT PM EDT Tex Robles MD POINT OF CARE TEST ORDERABLE S Performing Organization Address City/State/[place] [address] (ABNORMAL) CK (01/24/2022 6:20 PM EDT) athologist Signature CK, Total 50,445 (H) 0 - 200 [facility] unit/L [facility] Specimen Anatomical Collection Method Collection Time Receive d Time (Source) Location / / Volume Laterality Blood 01/24/2022 6:20 PM 2 6:27 EDT PM EDT Resulting Agency Comment Spec In Lab Cristina Hillman AGRICULTURAL EXTENSION OFFICER CHEMISTRY ORDERABLES Performing Organization Address City/State/[place] [address] MRI Brain wo Contrast [...] who have questions please contact the health manager wound care that requested your imaging first. ? Narrative 01/24/2022 4:39 PM EDT EXAMINATION: MRI [...] ho have questions please contact the health manager wound care that requested your imaging first. Cristina Hillman AGRICULTURAL EXTENSION OFFICER IMG MRI ORDERABLES MRSA PCR (01/24/2022 1:10 PM EDT) [facility] Method Time Signature MRSA Result Negative Negative [facility] MRSA Interp Negative for methicillin-resistant Staphylococcus aureus (MRSA) [facility] This test was performed using the GeneXpert?? Dx System an d the Xpert MRSA MEMORIAL Assay. The MRSA target DNA was not detec karina. The sample processing control and HOSPITAL probe check were valid. The performance of this test was determined by the [facility] Molecular Pathology Laboratory. It has been maximus red by the U.S. Food and Drug Administration for clinical use. Comment: [VERIFIED DATE]01.25.22 Verified By:Alfonso Soto (Electronic Signature) Specimen (Source) Anatomical Collection Method Collection Time Re ceived Time Location / / Volume Laterality Nasopharyngeal Swab 01/24/2022 1:10 01/25 PM EDT 7:30 AM EDT Resulting Agency Comment Spec In Lab Agnieszka López AGRICULTURAL EXTENSION OFFICER MICROBIOLOGY - GENERAL ORDER JT Performing Organization Address City/State/[place] [address] (ABNORMAL) CK (01/24/2022 12:14 PM EDT) athologist Signature CK, Total 61,457 (H) 0 - 200 [facility] Specimen Anatomical Collection Method Collection Time Receive d Time (Source) Location / / Volume Laterality Blood 01/24/2022 12:14 01/24/2022 1:00 PM EDT PM EDT Resulting Agency Comment Spec In Lab Gemma B Rafy AGRICULTURAL EXTENSION OFFICER CHEMISTRY ORDERABLES Performing Organization Address City/State/[place] [address] POCT Glucose (01/24/2022 12:13 PM EDT) athologist Signature POC Glucose 132 65 - 199 [facility]dL [facility] Comment: Supplemental ranges: <140 mg/dL before meals <180 mg/dL all other times of the day Specimen Anatomical Collection Method Collection Time Receive d Time (Source) Location / / Volume Laterality Blood 01/24/2022 12:13 01/24/2022 PM EDT 12:13 PM EDT Tex Robles MD POINT OF CARE TEST ORDERABLE S Performing Organization Address City/State/[place] [address] ECHOCARDIOGRAM COMPLETE W CONTRAST (01/24/2022 9:30 AM EDT) Anatomical Region Laterality Modality Cardiac Other Specimen (Source) Anatomical Collection Method Collection Time Re ceived Time Location / / Volume Laterality 01/23/2022 12:16 PM EDT Narrative 01/24/2022 11:52 AM EDT [facility] ?[address] ? [place] [address] ?Voice: ?Fax: ? Echocardiogram Report Name: ALIX HOLLAND ?Study Date : 01/23/2022 12:16 PM ?BP: 96/65 mmHg ?Patient Location: [address] A : 1990 ?Height: 183 cm ? Account: [id number] Age: 31 yrs ?Weigh t: 102 kg [...] 05/03/2018, the prior LVEF was normal. Procedure Complete-[id number]. Right ventricular strain . Image enhancement Optison [...] note might be different from the original. [facility] [address] [place] [id number] Voice: Fax: Echocardiogram Report Name: ALIX HOLLAND Study Date: 2021 12:16 PM BP: 96/65 mmHg Patient Location: [address] : 1990 Height: 183 cm Account: [id number] Age: 31 yrs Weight: 102 kg Gender: [...] 05/03/2018, the prior LVEF was normal. Procedure Complete-[id number]. Right ventricular strain . Image enhancement Optison [...] Signature POC Glucose 122 65 - 199 [facility] mg/dL [facility] Comment: Supplemental ranges: <140 mg/dL before meals <180 mg/dL all other times of the day Specimen Anatomical Collection Method Collection Time Receive d Time (Source) Location / / Volume Laterality Blood 01/24/2022 8:39 AM 2 8:39 EDT AM EDT Tex Robles MD POINT OF CARE TEST ORDERABLE S Performing Organization Address City/State/[place] [address] (ABNORMAL) CK (01/24/2022 6:25 AM EDT) athologist [facility] [place] CK, Total 84,528 (H) 0 - 200 [facility] Dsg.nr unit/L [facility] Specimen Anatomical Collection Method Collection Time Receive d Time (Source) Location / / Volume Laterality Blood 01/24/2022 6:25 AM 2 6:40 EDT AM EDT Resulting Agency Comment Spec In Lab Tex Robles MD CHEMISTRY ORDERABLES Performing Organization Address City/State/[place] [address] Electrolytes panel (01/24/2022 6:25 AM EDT) athologist [facility] [place] Sodium 136 135 - [address] [facility] mmol/L [facility] Potassium 4.4 3.5 - 5.[address] [facility] mmol/L [facility] Comment: Please note: ??Patients with WBC >100,00 0 may have falsely elevated Potassium levels. ??For accurate Potassium quantif ication in these patients send serum separator tube (gold top) for subsequent determinations. ??Contact the Clinical Chemistry Laboratory if there are any qu estions. Chloride 103 98 - 107 mmol/L [facility] CO2 22 22 - 31 mmol/L [facility] Anion Gap 11 5 - 15 mmol/L [facility] Specimen Anatomical Collection Method Collection Time Receive d Time (Source) Location / / Volume Laterality Blood 01/24/2022 6:25 AM 6:40 EDT AM EDT Resulting Agency Comment Spec In Lab Angelina Reynoso MD CHEMISTRY ORDERABLES Performing Organization Address City/State/[place] [address] (ABNORMAL) Blood Gas Arterial ([facility]) (01/24/2022 6:20 AM EDT) Analysis Performed At Patho logist Time Signature pH Art 7.48 (H) 7.35 - [facility] 7.45 [facility] pCO2 Art 29 (L) 35 - 45 [facility] LABORATORY pO2 Art 68 (L) 85 - 104 [facility] LABORATORY HCO3 Art 21.1 20.0 - [facility] 26.0 [facility] mmol/[facility] LABORATORY BE Art -2.3 -3.0 - 3.0 [facility] mmol/L [facility] Hgb Blood Gas 14.7 13.7 - [facility] 16.5 g/dL [facility] O2HB Art 91.8 (L) 94.0 - [facility] 97.0 % [facility] COHB Art 0.8 % [facility] Comment: Nonsmokers: ??0.5-1.5% COHB Smokers: ??Variable, but usually less th an 10% Toxic: 20 - 30% COHB Lethal: ??Greater than 60% COHB METHB Art 0.3 <=1.5 % [facility] Na Whole Blood 133 (L) 135 - 145 mmol/L [facility] K Whole Blood 4.3 3.5 - 5.0 mmol/L [facility] Comment: Please note: ??Patients with WBC >100,00 0 may have falsely elevated Potassium levels. ??Contact the Clinical Chemistry Laboratory if there are any questions. ICa Whole Blood 1.16 1.15 - 1.33 mmol/L [facility] Comment: Note: ??Total bilirubin higher than 20 m g/dL may lead to falsely low ionized calcium. CL Whole Blood 103 98 - 107 mmol/L [facility] Gluc Whole Bld 134 65 - 199 mg/dL [facility] Comment: Diabetes: >=200 mg/dL plus symp toms. Lactate WB 1.9 0.5 - 2.2 mmol/L [facility] Specimen Anatomical Collection Method Collection Time Receive d Time (Source) Location / / Volume Laterality Blood Arterial Draw / 01/24/2022 6:20 AM 2021 6:30 Unknown EDT AM EDT Resulting Agency Comment Spec In Lab Angelina Reynoso MD CHEMISTRY ORDERABLES Performing Organization Address City/[facility]/[place] [address] POCT Glucose (01/24/2022 4:06 AM EDT) P athologist Signature POC Glucose 103 65 - 199 [facility] mg/dL [facility] Comment: Supplemental ranges: <140 mg/dL before meals <180 mg/dL all other times of the day Specimen Anatomical Collection Method Collection Time Receive d Time (Source) Location / / Volume Laterality Blood 01/24/2022 4:06 AM 4:06 EDT AM EDT Tex Robles MD POINT OF CARE TEST ORDERABLE S Performing Organization Address City/[facility]/[place] [address] (ABNORMAL) Differential, Automated (01/24/2022 12:18 AM EDT) Patholo gist Method Time Signature Neutrophils % 77.0 % [facility] Neutr Abs (ANC) 8.76 (H) 1.70 - [facility] 6.10 [facility] x10(3)/[facility] LABORATORY Lymphocytes % 13.0 % [facility] Lymphocytes Abs 1.5 0.9 - 3.2 [facility] x10(3)/[facility] LABORATORY Monocytes % 8.0 % [facility] Monocyte Abs 0.9 0.3 - 0.9 [facility] x10(3)/[facility] LABORATORY Eosinophils % 0.4 % [facility] Eosinophils Abs 0.0 0.0 - 0.4 [facility] x10(3)/[facility] LABORATORY Basophils % 0.4 % [facility] Basophils Abs 0.0 0.0 - 0.1 [facility] x10(3)/[facility] LABORATORY Immature Gran % 1.20 % [facility] Comment: Immature granulocytes(IG's)percentage an d absolute count will include metamyelocytes, myelocytes, and promyelo cytes. Blood smears from CBCs yielding IG's will be scanned manually for concor dance. If this scan disagrees with the automated IG or if promyelocytes are not ed, a manual differential will be performed. Gemini Gran Abs 0.14 (H) 0.00 - 0.04 x10(3)/[facility] LABORATORY Specimen Anatomical Collection Method Collection Time Receive d Time (Source) Location / / Volume Laterality Blood 01/24/2022 12:18 01/24/2022 AM EDT 12:25 AM EDT Resulting Agency Comment Spec In Lab Cristina Hillman APRN HEMATOLOGY ORDERABLES Performing Organization Address City/State/[place] [address] (ABNORMAL) Hemogram (01/24/2022 12:18 AM EDT) Analysis Performed At Patho logist Time Signature WBC 11.4 (H) 4.0 - 9.5 [facility] x10(3)/[facility] LABORATORY RBC 4.66 4.58 - [facility] 5.54 [facility] x10(6)/[facility] LABORATORY Hemoglobin 14.8 13.7 - [facility] 16.5 g/dL [facility] Hematocrit 41.7 40.5 - [facility] 48.5 % [facility] MCV 89.5 82.9 - [facility] 93.1 fL [facility] MCH 31.8 27.5 - [facility] 32.1 pg [facility] MCHC 35.5 32.0 - [facility] 35.7 g/dL [facility] Platelets 136 (L) 145 - 357 [facility] x10(3)/[facility] LABORATORY RDWSD 40.0 36.0 - [facility] 45.0 [facility] LABORATORY RDWCV 12.3 11.4 - [facility] 13.8 % [facility] MPV 10.1 7.6 - 12.9 [facility] LABORATORY nRBC % Auto 0.0 % [facility] nRBC Abs Auto 0.000 0.000 - [facility] 0.000 [facility] x10(3)/[facility] LABORATORY Specimen Anatomical Collection Method Collection Time Receive d Time (Source) Location / / Volume Laterality Blood 01/24/2022 12:18 01/24/2022 AM EDT 12:25 AM EDT Resulting Agency Comment Spec In Lab Cristina Hillman APRN HEMATOLOGY ORDERABLES Performing Organization Address City/State/[place] [address] (ABNORMAL) Basic Metabolic Panel (non-fasting) (01/24/2022 12:18 AM EDT) P athologist Signature Glucose Lvl 164 65 - 199 [facility] mg/dL [facility] Comment: Diabetes: >=200 mg/dL plus symp toms BUN 31 (H) 10 - 20 mg/dL [facility] Creatinine 3.00 (H) 0.80 - 1.50 mg/dL [facility] Sodium 138 135 - 145 mmol/L [facility] Potassium 4.7 3.5 - 5.0 mmol/L [facility] Comment: Please note: ??Patients with WBC >100,00 0 may have falsely elevated Potassium levels. ??For accurate Potassium quantif ication in these patients send serum separator tube (gold top) for subsequent determinations. ??Contact the Clinical Chemistry Laboratory if there are any qu estions. Chloride 103 98 - 107 mmol/L [facility] CO2 21 (L) 22 - 31 mmol/L [facility] Anion Gap 14 5 - 15 mmol/L [facility] Calcium 8.0 (L) 8.5 - 10.5 mg/dL [facility] Comment: result rechecked-trb Estimated GFR 28 (L) >=60 mL/min/1.73 m?? [facility] Comment: This patient's estimated GFR [...] Organization Address City/State/ZIP Code Phon e Number [address] Phosphorus (01/24/2022 12:18 AM EDT) P athologist Signature Phosphorus 4.5 2.5 - 4.5 [facility] mg/dL [facility] Specimen Anatomical Collection Method Collection Time Receive d Time (Source) Location / / Volume Laterality Blood 01/24/2022 12:18 01/24/2022 AM EDT 12:25 AM EDT Resulting Agency Comment Spec In Lab Gela Novak MD CHEMISTRY ORDERABLES Performing Organization Address City/[facility]/ZIP Code Phon e Number [address] Magnesium (01/24/2022 12:18 AM EDT) P athologist Signature Magnesium 0.92 0.69 - 1.07 [facility] mmol/L [facility] Specimen Anatomical Collection Method Collection Time Receive d Time (Source) Location / / Volume Laterality Blood 01/24/2022 12:18 01/24/2022 AM EDT 12:25 AM EDT Resulting Agency Comment Spec In Lab Gela Novak MD CHEMISTRY ORDERABLES Performing Organization Address City/[facility]/[place] [address] (ABNORMAL) Hepatic Function Panel (01/24/2022 12:18 AM EDT) Patholo gist Method Time Signature Total Protein 4.5 (L) 6.1 - 8.0 [facility] g/dL [facility] Albumin 2.2 (L) 3.2 - 5.2 [facility] g/dL [facility] AST 1,181 (H) 0 - 39 [facility] unit/L [facility] ALT 682 (H) 0 - 55 [facility] unit/L [facility] Alk Phos 65 40 - 130 [facility] unit/L [facility] Total 0.5 0.2 - 1.3 [facility] Bilirubin mg/dL [facility] Bili, Direct 0.2 0.0 - 0.3 [facility] mg/dL [facility] Specimen Anatomical Collection Method Collection Time Receive d Time (Source) Location / / Volume Laterality Blood 01/24/2022 12:18 01/24/2022 AM EDT 12:25 AM EDT Resulting Agency Comment Spec In Lab Cristina Hillman APRN CHEMISTRY ORDERABLES Performing Organization Address City/[facility]/[place] [address] (ABNORMAL) Electrolytes panel (01/24/2022 12:18 AM EDT) athologist Signature Sodium 138 135 - [address] [facility] mmol/L [facility] Potassium 4.7 3.5 - 5.[address] [facility] mmol/L [facility] Comment: Please note: ??Patients with WBC >100,00 0 may have falsely elevated Potassium levels. ??For accurate Potassium quantif ication in these patients send serum separator tube (gold top) for subsequent determinations. ??Contact the Clinical Chemistry Laboratory if there are any qu estions. Chloride 103 98 - 107 mmol/L [facility] CO2 21 (L) 22 - 31 mmol/L [facility] Anion Gap 14 5 - 15 mmol/L [facility] Specimen Anatomical Collection Method Collection Time Receive d Time (Source) Location / / Volume Laterality Blood 01/24/2022 12:18 01/24/2022 AM EDT 12:25 AM EDT Resulting Agency Comment Spec In Lab Gemma B Pentland AGRICULTURAL EXTENSION OFFICER CHEMISTRY ORDERABLES Performing Organization Address City/[facility]/ZIP [facility] Phon e Number [address] (ABNORMAL) CK (01/24/2022 12:18 AM EDT) athologist Signature CK, Total 84,860 (H) 0 - 200 [facility] unit/L [facility] Specimen Anatomical Collection Method Collection Time Receive d Time (Source) Location / / Volume Laterality Blood 01/24/2022 12:18 01/24/2022 AM EDT 12:25 AM EDT Resulting Agency Comment Spec In Lab Gemma B Pentland AGRICULTURAL EXTENSION OFFICER CHEMISTRY ORDERABLES Performing Organization Address City/[facility]/[place] [address] POCT Glucose (01/24/2022 12:17 AM EDT) athologist Signature POC Glucose 158 65 - 199 [facility] mg/dL [facility] Comment: Supplemental ranges: <140 mg/dL before meals <180 mg/dL all other times of the day Specimen Anatomical Collection Method Collection Time Receive d Time (Source) Location / / Volume Laterality Blood 01/24/2022 12:17 01/24/2022 AM EDT 12:17 AM EDT Tex Robles MD POINT OF CARE TEST ORDERABLE S Performing Organization Address City/[facility]/[place] [address] (ABNORMAL) BLOOD GAS 2 ARTERIAL (01/24/2022 12:16 AM EDT) Analysis Performed At Patho logist Time Signature pH Art 7.48 (H) 7.35 - [facility] 7.45 [facility] pCO2 Art 30 (L) 35 - 45 [facility] mmHg [facility] pO2 Art 70 (L) 85 - 104 [facility] mmHg [facility] HCO3 Art 22.0 20.0 - [facility] 26.0 [facility] mmol/L [facility] BE Art -1.5 -3.0 - 3.0 [facility] mmol/L [facility] Hgb Blood Gas 15.9 13.7 - [facility] 16.5 g/dL [facility] O2HB Art 92.9 (L) 94.0 - [facility] 97.0 % [facility] COHB Art 0.6 % [facility] Comment: Nonsmokers: 0.5-1.5% COHB Smokers: Variable, but usually less than 10% Toxic: 20-30% COHB Lethal: Greater than 60% COHB METHB Art 0.4 <=1.5 % [facility] Na Whole Blood 133 (L) 135 - 145 mmol/L [facility] K Whole Blood 4.5 3.5 - 5.0 mmol/L [facility] Comment: Please note: Patients with WBC >100,000 may have falsely elevated Potassium levels. Contact the Clinical Chemistry L aboratory if there are any questions. ICa Whole Blood 1.11 (L) 1.15 - 1.33 mmol/L [facility] Comment: Note: ??Total bilirubin higher than 20 m g/dL may lead to falsely low ionized calcium. CL Whole Blood 103 98 - 107 mmol/L [facility] Gluc Whole Bld 164 65 - 199 mg/dL [facility] Comment: Diabetes: >=200 mg/dL plus symp toms. Lactate WB 2.4 (H) 0.5 - 2.2 mmol/L [facility] FIO2 Art 21 % [facility] PF Ratio Art [address] [facility] Specimen Anatomical Collection Method Collection Time Receive d Time (Source) Location / / Volume Laterality Blood 01/24/2022 12:16 01/24/2022 AM EDT 12:16 AM EDT Tex Robles MD CHEMISTRY ORDERABLES Performing Organization Address City/State/[place] [address] POCT Glucose (01/23/2022 8:20 PM EDT) P athologist Signature POC Glucose 93 65 - 199 [facility] mg/dL [facility] Comment: Supplemental ranges: <140 mg/dL before meals <180 mg/dL all other times of the day Specimen Anatomical Collection Method Collection Time Receive d Time (Source) Location / / Volume Laterality Blood 01/23/2022 8:20 PM 8:20 EDT PM EDT Tex Robles MD POINT OF CARE TEST ORDERABLE S Performing Organization Address City/State/[place] [address] (ABNORMAL) Blood Gas Arterial ([facility]) (01/23/2022 6:10 PM EDT) Analysis Performed At Patho logist Time Signature pH Art 7.46 (H) 7.35 - [facility] 7.45 [facility] pCO2 Art 31 (L) 35 - 45 [facility] mmHg [facility] pO2 Art 79 (L) 85 - 104 [facility] mmHg [facility] HCO3 Art 21.5 20.0 - [facility] 26.0 [facility] mmol/L [facility] BE Art -2.4 -3.0 - 3.0 [facility] mmol/L [facility] Hgb Blood Gas 17.4 (H) 13.7 - [facility] 16.5 g/dL [facility] O2HB Art 95.5 94.0 - [facility] 97.0 % [facility] COHB Art 0.3 % [facility] Comment: Nonsmokers: ??0.5-1.5% COHB Smokers: ??Variable, but usually less th an 10% Toxic: 20 - 30% COHB Lethal: ??Greater than 60% COHB METHB Art 0.0 <=1.5 % [facility] Na Whole Blood 135 135 - 145 mmol/L [facility] K Whole Blood 5.0 3.5 - 5.0 mmol/L [facility] Comment: Please note: ??Patients with WBC >100,00 0 may have falsely elevated Potassium levels. ??Contact the Clinical Chemistry Laboratory if there are any questions. ICa Whole Blood 1.15 1.15 - 1.33 mmol/L [facility] Comment: Note: ??Total bilirubin higher than 20 m g/dL may lead to falsely low ionized calcium. CL Whole Blood 104 98 - 107 mmol/L [facility] Gluc Whole Bld 144 65 - 199 mg/dL [facility] Comment: Diabetes: >=200 mg/dL plus symp toms. Lactate WB 2.6 (H) 0.5 - 2.2 mmol/L [facility] FIO2 Art 60 % [facility] PF Ratio Art [address] [facility] Specimen Anatomical Collection Method Collection Time Receive d Time (Source) Location / / Volume Laterality Blood Arterial Draw / 01/23/2022 6:10 PM 2021 6:21 Unknown EDT PM EDT Resulting Agency Comment Spec In Lab Angelina Reynoso MD CHEMISTRY ORDERABLES Performing Organization Address City/State/[place] [address] HIV Screen, 4th Generation ([facility]/CGP/APD/NLH) (01/23/2022 6:10 PM EDT) Analysis Performed At Patho logist Time Signature HIV-1/2 Ab and Negative Negative [facility] Comment: This 4th Generation HIV test [...] Comment Low Risk of HIV Infection [facility] Specimen Anatomical Collection Method Collection Time Receive d Time (Source) Location / / Volume Laterality Blood 01/23/2022 6:10 PM 2 6:21 EDT PM EDT Resulting Agency Comment Spec In Lab Tex Robles MD IMMUNOLOGY ORDERABLES Performing Organization Address City/[facility]/[place] [address] Hepatitis A Antibody, Total (01/23/2022 6:10 PM EDT) Analysis Performed At Patho logist Time Signature Hepatitis A Ab Negative Negative [facility]ORY Specimen Anatomical Collection Method Collection Time Receive d Time (Source) Location / / Volume Laterality Blood 01/23/2022 6:10 PM 2 6:21 EDT PM EDT Resulting Agency Comment Spec In Lab Tex Robles MD IMMUNOLOGY ORDERABLES Performing Organization Address City/[facility]/[place] [address] (ABNORMAL) CK (01/23/2022 6:10 PM EDT) P athologist Signature CK, Total 158,050 0 - 200 [facility] (H) unit/[facility] Specimen Anatomical Collection Method Collection Time Receive d Time (Source) Location / / Volume Laterality Blood 01/23/2022 6:10 PM 2 6:21 EDT PM EDT Resulting Agency Comment Spec In Lab Cristina Hillman AGRICULTURAL EXTENSION OFFICER CHEMISTRY ORDERABLES Performing Organization Address City/[facility]/[place] [address] (ABNORMAL) Electrolytes panel (01/23/2022 6:10 PM EDT) P athologist Signature Sodium 136 135 - 145 [facility] mmol/L [facility] Potassium 5.0 3.5 - 5.0 [facility] mmol/L [facility] Comment: Please note: ??Patients with WBC >100,00 0 may have falsely elevated Potassium levels. ??For accurate Potassium quantif ication in these patients send serum separator tube (gold top) for subsequent determinations. ??Contact the Clinical Chemistry Laboratory if there are any qu estions. Chloride 103 98 - 107 mmol/L [facility] CO2 20 (L) 22 - 31 mmol/L [facility] Anion Gap 13 5 - 15 mmol/L [facility] Specimen Anatomical Collection Method Collection Time Receive d Time (Source) Location / / Volume Laterality Blood 01/23/2022 6:10 PM 2 6:21 EDT PM EDT Resulting Agency Comment Spec In Lab Cristina Hillman APRN CHEMISTRY ORDERABLES Performing Organization Address City/[facility]/[place] [address] Phosphorus (01/23/2022 6:10 PM EDT) P athologist Signature Phosphorus 4.2 2.5 - 4.5 [facility] Specimen Anatomical Collection Method Collection Time Receive d Time (Source) Location / / Volume Laterality Blood 01/23/2022 6:10 PM 2 6:21 EDT PM EDT Resulting Agency Comment Spec In Lab Angelina Reynoso MD CHEMISTRY ORDERABLES Performing Organization Address City/[facility]/[place] [address] Magnesium (01/23/2022 6:10 PM EDT) P athologist Signature Magnesium 0.94 0.69 - 1.07 [facility] mmol/L [facility] Specimen Anatomical Collection Method Collection Time Receive d Time (Source) Location / / Volume Laterality Blood 01/23/2022 6:10 PM 2 6:21 EDT PM EDT Resulting Agency Comment Spec In Lab Angelina Reynoso MD CHEMISTRY ORDERABLES Performing Organization Address City/[facility]/[place] [address] (ABNORMAL) Creatinine (01/23/2022 6:10 PM EDT) Analysis Performed At Patho logist Time Signature Creatinine 2.88 (H) 0.80 - [facility] 1.50 mg/dL [facility] Estimated GFR 29 (L) >=60 [facility] mL/min/1.7 [facility] 3 m? HOSPITAL LABORATORY Comment: This patient's [...] City/State/ZIP Code [place] [address] (ABNORMAL) Troponin (01/23/2022 6:10 PM EDT) P athologist Signature Troponin-T 0.14 (H) 0.00 - [facility] 0.00 ng/mL [facility] Comment: The 99th percentile for Troponin T is le ss than 0.01 ng/mL, any detectable cTnT concentration using this assay should be considered elevated. According to the third universal definit ion of myocardial infarction the following criteria with a clinical prese ntation consistent with acute myocardial ischemia meets the diagnosis for a myocardial infarction (VT). Detection of a rise and/or fall of [...] additional sample may be indicated. Reference: Third [place] Definition of Myocardial Infarction. Journal of the [place] [employer] 2012;60:1581-98 Specimen Anatomical Collection Method Collection Time Receive d Time (Source) Location / / Volume Laterality Blood 01/23/2022 6:10 PM 6:21 EDT PM EDT Resulting Agency Comment Spec In Lab Cristina B Fileboard AGRICULTURAL EXTENSION OFFICER CHEMISTRY ORDERABLES Performing Organization Address City/State/[place] [address] XR Chest One View [...] who have questions please contact the health manager wound care that requested your imaging first. ? Narrative [...] ho have questions please contact the health manager wound care that requested your imaging first. Tex Travis HARTLEY IMG DX ORDERABLES (ABNORMAL) Calcium Ionized Whole Blood, HONORIO (01/23/2022 3:12 PM EDT) Analysis Performed At Patho logist Time Signature pH Honorio 7.42 7.32 - [facility] 7.42 [facility] ICa Whole 1.13 (L) 1.15 - [facility] Blood 1.33 [facility] mmol/L [facility] Comment: Note: ??Total bilirubin higher than [...] Organization Address City/State/ZIP Code Phon e Number [address] POCT Glucose (01/23/2022 3:03 PM EDT) P athologist Signature POC Glucose 145 65 - 199 [facility] mg/dL [facility] Comment: Supplemental ranges: <140 mg/dL before meals <180 mg/dL all other times of the day Specimen Anatomical Collection Method Collection Time Receive d Time (Source) Location / / Volume Laterality Blood 01/23/2022 3:03 PM 3:03 EDT PM EDT Tex Robles MD POINT OF CARE TEST ORDERABLE S Performing Organization Address City/State/[place] [address] XR Tibia Fibula Left [...] who have questions please contact the health manager wound care that requested your imaging first. ? Narrative [...] ho have questions please contact the health manager wound care that requested your imaging first. Electronically signed by: Jacky Mello MD, [facility] ([phone]), at 01/23/2022 2:07 PM Tex Robles MD IMG DX ORDERABLES XR Femur 2 views [...] who have questions please contact the health manager wound care that requested your imaging first. ? Narrative [...] ho have questions please contact the health manager wound care that requested your imaging first. Tex Robles MD IMG DX ORDERABLES MRSA PCR (01/23/2022 12:47 PM EDT) [facility] Method Time Signature MRSA Result Negative Negative [facility] MRSA Interp Negative for methicillin-resistant Staphylococcus aureus (MRSA) [facility] This test was performed using the GeneXpert?? Dx System an d the Xpert MRSA MEMORIAL Assay. The MRSA target DNA was not detec karina. The sample processing control and HOSPITAL probe check were valid. The performance of this test was determined by the [facility] Molecular Pathology Laboratory. It has been [...] Organization Address City/State/[place] [address] (ABNORMAL) BLOOD GAS 2 ARTERIAL (01/23/2022 11:56 AM EDT) Analysis Performed At Patho logis Time Signature pH Art 7.43 7.35 - [facility] 7.45 [facility] pCO2 Art 32 (L) 35 - 45 [facility] mmHg [facility] pO2 Art 86 85 - 104 [facility]ORY HCO3 Art 20.8 20.0 - [facility] 26.0 [facility] mmol/L [facility] BE Art -3.5 (L) -3.0 - 3.0 [facility] mmol/L [facility] Hgb Blood Gas 16.1 13.7 - [facility] 16.5 g/dL [facility] O2HB Art 95.6 94.0 - [facility] 97.0 % [facility] COHB Art 0.2 % [facility] Comment: Nonsmokers: 0.5-1.5% COHB Smokers: Variable, but usually less than 10% Toxic: 20-30% COHB Lethal: Greater than 60% COHB METHB Art 0.4 <=1.5 % [facility] Na Whole Blood 137 135 - 145 mmol/L [facility] K Whole Blood 5.5 (H) 3.5 - 5.0 mmol/L [facility] Comment: Please note: Patients with WBC >100,000 may have falsely elevated Potassium levels. Contact the Clinical Chemistry L aboratory if there are any questions. ICa Whole Blood 1.04 (L) 1.15 - 1.33 mmol/L [facility] Comment: Note: ??Total bilirubin higher than 20 m g/dL may lead to falsely low ionized calcium. CL Whole Blood 104 98 - 107 mmol/L [facility] Gluc Whole Bld 144 65 - 199 mg/dL [facility] Comment: Diabetes: >=200 mg/dL plus symp toms. Lactate WB 2.7 (H) 0.5 - 2.2 mmol/L [facility] FIO2 Art 60 % [facility] PF Ratio Art [address] [facility] Specimen Anatomical Collection Method Collection Time Receive d Time (Source) Location / / Volume Laterality Blood 01/23/2022 11:56 01/23/2022 AM EDT 11:56 AM EDT Tex Robles MD CHEMISTRY ORDERABLES Performing Organization Address City/[facility]/ZIP Code Phon e Number [address] Hepatitis B Surface Antigen (01/23/2022 11:50 AM EDT) Analysis Performed At Patho logist Time Signature HepB Surface Negative Negative [facility] LABORATORY Specimen Anatomical Collection Method Collection Time Receive d Time (Source) Location / / Volume Laterality Blood 01/23/2022 11:50 01/23/2022 AM EDT 12:00 PM EDT Resulting Agency Comment Spec In Lab Agnieszka López APRN CHEMISTRY ORDERABLES Performing Organization Address City/[facility]/ZIP Code Phon e Number [address] Hepatitis B DNA, quantitative, PCR (01/23/2022 11:50 AM EDT) Component Value Ref Test Analysis Performed At Patholo gist Range Method Time Signature Hepatitis B Result: <10 IU/mL (Target Not Detected) MANDO RAMESH quantitative, Indication for Study: HBV Infection [facility] Analysis: Mullins Shayanty m HBV assay is an in vi tro polymerase chain reaction LABORATORY (PCR) assay for the quantification of Hepatitis B Virus (HBV ) DNA in human plasma (EDTA) from chronically HBV-infected individuals. Sample: plasma Method: [employer] RealTime HBV Assay Linear Range: 10 IU/mL ? 1,000,000,000 IU/mL Note: The [employer] Alinity m HBV Assay has been approved by the U.S. Food and Drug Administration. Specimen Anatomical Collection Method Collection Time Receive d Time (Source) Location / / Volume Laterality Blood 01/23/2022 11:50 01/25/2022 8:53 AM EDT AM EDT Resulting Agency Comment Spec In Lab Agnieszka López KATERYNA CHEMISTRY ORDERABLES Performing Organization Address City/[facility]/[place] [address] Hepatitis B Core Antibody, Total (01/23/2022 11:50 AM EDT) Analysis Performed At Patho logist Time Signature Hep B Core Ab Negative Negative [facility] Specimen Anatomical Collection Method Collection Time Receive d Time (Source) Location / / Volume Laterality Blood 01/23/2022 11:50 01/23/2022 AM EDT 12:00 PM EDT Resulting Agency Comment Spec In Lab Agnieszka López AGRICULTURAL EXTENSION OFFICER CHEMISTRY ORDERABLES Performing Organization Address City/[facility]/[place] [address] (ABNORMAL) Lower Respiratory Culture Tracheal Aspirate (01/23/2022 11:50 AM EDT) Component Value Ref Test Analysis Performed At Patholo gist Range Method Time Signature Lower Many Staphylococcus aureus MAR Y Respiratory Few mixed bacterial morphoty pes suggestive of normal upper respiratory yessy [place] Culture ([facility] Gram Stain Many Neutrophils [facility] No squamous epithelial cells [facility] Moderate Gram Positive [facility] Organism Staphylococcus [facility] aureus (A) [facility]ORY Specimen Anatomical Collection Method Collection Time [...] Comment: Gentamicin is not a ppropriate for Wise-therapy. Staphylococcus aureus Oxacillin VITEK 2 METHOD Sensitive [...] - GENERAL ORDER JT Performing Organization Address City/[facility]/[place] [address] (ABNORMAL) Creatinine (01/23/2022 11:30 AM EDT) Analysis Performed At Patho logist Time Signature Creatinine 3.56 (H) 0.80 - [facility] 1.50 mg/dL [facility] Estimated GFR 23 (L) >=60 [facility] [place] mL/min/1.7 [facility] 3 m?? HOSPITAL LABORATORY Comment: This patient's [...] Organization Address City/State/ZIP Code Phon e Number [address] (ABNORMAL) Phosphorus (01/23/2022 11:30 AM EDT) P athologist Signature Phosphorus 6.8 (H) 2.5 - 4.5 [facility] mg/dL [facility] Specimen Anatomical Collection Method Collection Time Receive d Time (Source) Location / / Volume Laterality Blood 01/23/2022 11:30 01/23/2022 AM EDT 11:40 AM EDT Resulting Agency Comment Spec In Lab Angelina Reynoso MD CHEMISTRY ORDERABLES Performing Organization Address City/[facility]/ZIP Code Phon e Number [address] Magnesium (01/23/2022 11:30 AM EDT) P athologist Signature Magnesium 0.86 0.69 - 1.07 [facility] LABORATORY Specimen Anatomical Collection Method Collection Time Receive d Time (Source) Location / / Volume Laterality Blood 01/23/2022 11:30 01/23/2022 AM EDT 11:40 AM EDT Resulting Agency Comment Spec In Lab Angelina Reynoso MD CHEMISTRY ORDERABLES Performing Organization Address [facility] [place] [address] (ABNORMAL) Electrolytes panel (01/23/2022 11:30 AM EDT) P athologist Signature Sodium 142 135 - 145 [facility] mmol/[facility] Potassium 5.6 (H) 3.5 - 5.0 [facility] mmol/[facility] Comment: Please note: ??Patients with WBC >100,00 0 may have falsely elevated Potassium levels. ??For accurate Potassium quantif ication in these patients send serum separator tube (gold top) for subsequent determinations. ??Contact the Clinical Chemistry Laboratory if there are any qu estions. Chloride 107 98 - 107 mmol/L [facility] CO2 19 (L) 22 - 31 mmol/L [facility] Anion Gap 16 (H) 5 - 15 mmol/L [facility] Specimen Anatomical Collection Method Collection Time Receive d Time (Source) Location / / Volume Laterality Blood 01/23/2022 11:30 01/23/2022 AM EDT 11:35 AM EDT Resulting Agency Comment Spec In Lab Cristina Hillman APRN CHEMISTRY ORDERABLES Performing Organization Address City/[facility]/[place] [address] (ABNORMAL) CK (01/23/2022 11:30 AM EDT) athologist Signature CK, Total 146,810 0 - 200 [facility] (H) unit/L [facility] Specimen Anatomical Collection Method Collection Time Receive d Time (Source) Location / / Volume Laterality Blood 01/23/2022 11:30 01/23/2022 AM EDT 11:35 AM EDT Resulting Agency Comment Spec In Lab Gemma B Pentland AGRICULTURAL EXTENSION OFFICER CHEMISTRY ORDERABLES Performing Organization Address City/State/[place] [address] (ABNORMAL) Troponin (01/23/2022 11:30 AM EDT) athologist Signature Troponin-T 0.24 (H) 0.00 - [facility] [place] 0.00 ng/mL [facility] Comment: The 99th percentile for Troponin T is le ss than 0.01 ng/mL, any detectable cTnT concentration using this assay should be considered elevated. According to the third universal definit ion of myocardial infarction the following criteria with a clinical prese ntation consistent with acute myocardial ischemia meets the diagnosis for a myocardial infarction (VT). Detection of a rise and/or fall of [...] additional sample may be indicated. Reference: Third [place] Definition of Myocardial Infarction. Journal of the [place] [employer] 2012;60:1581-98 Specimen Anatomical Collection Method Collection Time Receive d Time (Source) Location / / Volume Laterality Blood 01/23/2022 11:30 01/23/2022 AM EDT 11:35 AM EDT Resulting Agency Comment Spec In Lab Cristina Hillman APRN CHEMISTRY ORDERABLES Performing Organization Address City/State/[place] [address] POCT Glucose (01/23/2022 11:01 AM EDT) P athologist Signature POC Glucose 119 65 - 199 [facility] mg/dL [facility] Comment: Supplemental ranges: <140 mg/dL before meals <180 mg/dL all other times of the day Specimen Anatomical Collection Method Collection Time Receive d Time (Source) Location / / Volume Laterality Blood 01/23/2022 11:01 01/23/2022 AM EDT 11:01 AM EDT Tex Robles MD POINT OF CARE TEST ORDERABLE S Performing Organization Address City/State/[place] [address] (ABNORMAL) BLOOD GAS 2 ARTERIAL (01/23/2022 9:18 AM EDT) Analysis Performed At Patho logist Time Signature pH Art 7.40 7.35 - [facility] 7.45 [facility] pCO2 Art 37 35 - 45 [facility] mmHg [facility] pO2 Art 61 (L) 85 - 104 [facility] LABORATORY HCO3 Art 22.3 20.0 - [facility] 26.0 [facility] mmol/L [facility] LABORATORY BE Art -2.6 -3.0 - 3.0 [facility] mmol/L [facility] LABORATORY Hgb Blood Gas 15.3 13.7 - [facility] 16.5 g/dL [facility] LABORATORY O2HB Art 91.2 (L) 94.0 - [facility] 97.0 % [facility] LABORATORY COHB Art 0.3 % [facility] LABORATORY Comment: Nonsmokers: 0.5-1.5% COHB Smokers: Variable, but usually less than 10% Toxic: 20-30% COHB Lethal: Greater than 60% COHB METHB Art 0.3 <=1.5 % [facility] LABORATORY Na Whole Blood 137 135 - 145 mmol/L [facility] LABORATORY K Whole Blood 4.5 3.5 - 5.0 mmol/L [facility] LABORATORY Comment: Please note: Patients with WBC >100,000 may have falsely elevated Potassium levels. Contact the Clinical Chemistry L aboratory if there are any questions. ICa Whole Blood 1.23 1.15 - 1.33 mmol/L [facility] LABORATORY Comment: Note: ??Total bilirubin higher than 20 m g/dL may lead to falsely low ionized calcium. CL Whole Blood 105 98 - 107 mmol/L [facility] LABORATORY Gluc Whole Bld 117 65 - 199 mg/dL [facility] LABORATORY Comment: Diabetes: >=200 mg/dL plus symp toms. Lactate WB 4.9 (Critical) 0.5 - 2.2 mmol/L [facility] LABORATORY Comment: Noted by instrument mechanic weapons system. FIO2 Art 62 % [facility] LABORATORY PF Ratio Art [address] [facility] LABORATORY Temp Art 36.5 Celsius [facility] LABORATORY Specimen Anatomical Collection Method Collection Time Receive d Time (Source) Location / / Volume Laterality Blood 01/23/2022 9:18 AM 9:18 EDT AM EDT Tex Robles MD CHEMISTRY ORDERABLES Performing Organization Address City/State/[place] [address] (ABNORMAL) BLOOD GAS 2 ARTERIAL (01/23/2022 8:37 AM EDT) Analysis Performed At Patho logist Time Signature pH Art 7.40 7.35 - [facility] [place] 7.45 [facility] LABORATORY pCO2 Art 33 (L) 35 - 45 [facility] LABORATORY pO2 Art 97 85 - 104 [facility] LABORATORY HCO3 Art 20.3 20.0 - [facility] 26.0 [facility] mmol/[facility] LABORATORY BE Art -4.4 (L) -3.0 - 3.0 [facility] mmol/L [facility] LABORATORY Hgb Blood Gas 15.3 13.7 - [facility] 16.5 g/dL [facility] LABORATORY O2HB Art 96.8 94.0 - [facility] 97.0 % [facility] LABORAT[facility] COHB Art 0.4 % [facility] LABORATORY Comment: Nonsmokers: 0.5-1.5% COHB Smokers: Variable, but usually less than 10% Toxic: 20-30% COHB Lethal: Greater than 60% COHB METHB Art 0.3 <=1.5 % [facility] LABORATORY Na Whole Blood 135 135 - 145 mmol/L [facility] LABORAT[facility] K Whole Blood 4.0 3.5 - 5.0 mmol/L [facility] LABORATORY Comment: Please note: Patients with WBC >100,000 may have falsely elevated Potassium levels. Contact the Clinical Chemistry L aboratory if there are any questions. ICa Whole Blood 1.11 (L) 1.15 - 1.33 mmol/L [facility] LABORATORY Comment: Note: ??Total bilirubin higher than 20 m g/dL may lead to falsely low ionized calcium. CL Whole Blood 105 98 - 107 mmol/L [facility] LABORATORY Gluc Whole Bld 141 65 - 199 mg/dL [facility] LABORATORY Comment: Diabetes: >=200 mg/dL plus symp toms. Lactate WB 5.0 (Critical) 0.5 - 2.2 mmol/L [facility] LABORATORY Comment: Noted by instrument mechanic weapons system. Specimen Anatomical Collection Method Collection Time Receive d Time (Source) Location / / Volume Laterality Blood 01/23/2022 8:37 AM 2 8:37 EDT AM EDT Tex Robles MD CHEMISTRY ORDERABLES Performing Organization Address City/State/[place] [address] (ABNORMAL) BLOOD GAS 2 ARTERIAL (01/23/2022 7:59 AM EDT) Analysis Performed At Patho logist Time Signature pH Art 7.34 (L) 7.35 - [facility] [place] 7.45 [facility] LABORATORY pCO2 Art 34 (L) 35 - 45 [facility] LABORATORY pO2 Art 105 (H) 85 - 104 [facility] LABORATORY HCO3 Art 18.1 (L) 20.0 - [facility] [place] 26.0 [facility] mmol/[facility] LABORATORY BE Art -7.7 (L) -3.0 - 3.0 [facility] mmol/L [facility] LABORATORY Hgb Blood Gas 16.6 (H) 13.7 - [facility] 16.5 g/dL [facility] LABORATORY O2HB Art 97.0 94.0 - [facility] 97.0 % [facility] LABORATORY COHB Art 0.3 % [facility] LABORATORY Comment: Nonsmokers: 0.5-1.5% COHB Smokers: Variable, but usually less than 10% Toxic: 20-30% COHB Lethal: Greater than 60% COHB METHB Art 0.0 <=1.5 % [facility] LABORATORY Na Whole Blood 140 135 - 145 mmol/L [facility] LABORATORY K Whole Blood 4.5 3.5 - 5.0 mmol/L [facility] LABORATORY Comment: Please note: Patients with WBC >100,000 may have falsely elevated Potassium levels. Contact the Clinical Chemistry L aboratory if there are any questions. ICa Whole Blood 0.91 (Critical) 1.15 - 1.33 mmol/L [facility] LABORATORY Comment: Noted by instrument mechanic weapons system. Note: ??Total bilirubin higher than 20 m g/dL may lead to falsely low ionized calcium. CL Whole Blood 103 98 - 107 mmol/L [facility] LABORATORY Gluc Whole Bld 179 65 - 199 mg/dL [facility] LABORATORY Comment: Diabetes: >=200 mg/dL plus symp toms. Lactate WB 4.4 (Critical) 0.5 - 2.2 mmol/L [facility] LABORATORY Comment: Noted by instrument mechanic weapons system. Specimen Anatomical Collection Method Collection Time Receive d Time (Source) Location / / Volume Laterality Blood 01/23/2022 7:59 AM 7:59 EDT AM EDT Tex Robles MD CHEMISTRY ORDERABLES Performing Organization Address City/State/[place] [address] (ABNORMAL) POCT Glucose (01/23/2022 7:28 AM EDT) P athologist Signature POC Glucose 215 (H) 65 - 199 [facility] [place] mg/dL [facility] LABORATORY Comment: Supplemental ranges: <140 mg/dL before meals <180 mg/dL all other times of the day Specimen Anatomical Collection Method Collection Time Receive d Time (Source) Location / / Volume Laterality Blood 01/23/2022 7:28 AM 7:28 EDT AM EDT Tex Robles MD POINT OF CARE TEST ORDERABLE S Performing Organization Address City/State/[place] [address] (ABNORMAL) Blood Gas Arterial ([facility]) (01/23/2022 7:21 AM EDT) Analysis Performed At Patho logist Time Signature pH Art 7.37 7.35 - [facility] [place] 7.45 [facility] LABORATORY pCO2 Art 28 (L) 35 - 45 [facility] LABORATORY pO2 Art 96 85 - 104 [facility] LABORATORY HCO3 Art 15.7 (L) 20.0 - [facility] [place] 26.0 [facility] mmol/[facility] LABORATORY BE Art -9.6 (L) -3.0 - 3.0 [facility] mmol/L [facility] LABORATORY Hgb Blood Gas 16.4 13.7 - [facility] 16.5 g/dL [facility] O2HB Art 96.6 94.0 - [facility] [place] 97.0 % [facility] LABOR[facility] COHB Art 0.3 % [facility] LABORATORY Comment: Nonsmokers: ??0.5-1.5% COHB Smokers: ??Variable, but usually less th an 10% Toxic: 20 - 30% COHB Lethal: ??Greater than 60% COHB METHB Art 0.2 <=1.5 % [facility] LABORATORY Na Whole Blood 137 135 - 145 mmol/L [facility] LABORAT[facility] K Whole Blood 4.4 3.5 - 5.0 mmol/L [facility] LABORATORY Comment: Please note: ??Patients with WBC >100,00 0 may have falsely elevated Potassium levels. ??Contact the Clinical Chemistry Laboratory if there are any questions. ICa Whole Blood 0.90 (Critical) 1.15 - 1.33 mmol/L [facility] LABORATORY Comment: Called by: sharmin, Read back by: willie webb, Date/Time:01/23/22 07:38. Note: ??Total bilirubin higher than 20 m g/dL may lead to falsely low ionized calcium. CL Whole Blood 105 98 - 107 mmol/L [facility] LABORATORY Gluc Whole Bld 203 (H) 65 - 199 mg/dL [facility] LABORATORY Comment: Diabetes: >=200 mg/dL plus symp toms. Lactate WB 5.5 (Critical) 0.5 - 2.2 mmol/L [facility] LABOR[facility] Comment: Called by: sharmin, Read back by: pramod alfaro, Date/Time:01/23/22 07:38. FIO2 Art 30 % [facility] LABORATORY PF Ratio Art 320 [facility] LABORATORY Specimen Anatomical Collection Method Collection Time Receive d Time (Source) Location / / Volume Laterality Blood Arterial Draw / 01/23/2022 7:21 AM 2021 7:28 Unknown EDT AM EDT Resulting Agency Comment Spec In Lab Cristina Hillman APRN CHEMISTRY ORDERABLES Performing Organization Address City/[facility]/[place] [address] (ABNORMAL) Phosphorus (01/23/2022 7:20 AM EDT) P athologist Signature Phosphorus 6.1 (H) 2.5 - 4.5 [facility] mg/dL [facility] LABORATORY Specimen Anatomical Collection Method Collection Time Receive d Time (Source) Location / / Volume Laterality Blood 01/23/2022 7:20 AM 7:27 EDT AM EDT Resulting Agency Comment Spec In Lab Angelina Reynoso MD CHEMISTRY ORDERABLES Performing Organization Address City/State/[place] [address] Magnesium (01/23/2022 7:20 AM EDT) P athologist Signature Magnesium 0.81 0.69 - 1.[address] [address]/L [facility] LABOR[facility]ORY Specimen Anatomical Collection Method Collection Time Receive d Time (Source) Location / / Volume Laterality Blood 01/23/2022 7:20 AM 2 7:27 EDT AM EDT Resulting Agency Comment Spec In Lab Angelina Reynoso MD CHEMISTRY ORDERABLES Performing Organization Address City/State/ZIP Code Phon e Number [address] (ABNORMAL) Creatinine (01/23/2022 7:20 AM EDT) Analysis Performed At Patho logist Time Signature Creatinine 3.84 (H) 0.80 - [facility] [place] 1.50 mg/dL [facility] LABORATORY Estimated GFR 21 (L) >=60 [facility] mL/min/1.7 [facility] 3 ?? [facility] LABORATORY Comment: This patient's estimated GFR was [...] Organization Address City/State/ZIP Code Phon e Number [address] (ABNORMAL) Electrolytes panel (01/23/2022 7:20 AM EDT) athologist Signature Sodium 141 135 - 145 [facility]L [facility] Potassium 4.6 3.5 - 5.0 [facility] mmol/L [facility] LABORATORY Comment: result rechecked- Please note: ??Patients with WBC >100,00 0 may have falsely elevated Potassium levels. ??For accurate Potassium quantif ication in these patients send serum separator tube (gold top) for subsequent determinations. ??Contact the Clinical Chemistry Laboratory if there are any qu estions. Chloride 106 98 - 107 mmol/L [facility] LABORATORY CO2 14 (L) 22 - 31 mmol/L [facility] LABORATORY Anion Gap 21 (H) 5 - 15 mmol/L [facility] LABORATORY Specimen Anatomical Collection Method Collection Time Receive d Time (Source) Location / / Volume Laterality Blood 01/23/2022 7:20 AM 7:27 EDT AM EDT Resulting Agency Comment Spec In Lab Angelina Reynoso MD CHEMISTRY ORDERABLES Performing Organization Address City/State/[place] [address] XR Hand Min 3 [...] who have questions please contact the health manager wound care that requested your imaging first. ? Procedure [...] ho have questions please contact the health manager wound care that requested your imaging first. Electronically signed by: Jacky Mello MD, [facility] ([phone]), at 01/23/2022 11:07 AM Tex Travis HARTLEY [...] who have questions please contact the health manager wound care that requested your imaging first. ? Electronically signed by: Rex Addison MD, [facility] ([phone]), at 01/23/2022 6:56 AM Narrative 01/23/2022 6:56 [...] iaphragm, the tip is not within the [id number]. Upper retrocardiac opacity corresponding to partial collapse [...] iaphragm, the tip is not within the [id number]. Upper retrocardiac opacity corresponding to partial collapse [...] ho have questions please contact the health manager wound care that requested your imaging first. Tex Travis [...] who have questions please contact the health manager wound care that requested your imaging first. ? Electronically signed by: Rex Adidson MD, [facility] ([phone]), at 01/23/2022 7:14 AM Narrative 01/23/2022 7:14 [...] ho have questions please contact the health manager wound care that requested your imaging first. Tex Travis HARTLEY IMG DX ORDERABLES CENTRAL [...] yes Patient location at time of insertion: [address] Procedure Comments: Prior to dilation wire was visualized vi a ultrasound entering large, collapsible vessel in both transv erse and longitudinal planes. All ports had positive blood ret urn and were able to be flushed without difficulty. Cristina Hillman APRN Cristina Hillman APRN PROCEDURE/MINOR SURGICAL ORD ERABLES (ABNORMAL) Electrolytes panel (01/23/2022 6:00 AM EDT) athologist Signature Sodium 140 135 - 145 [facility] [place] mmol/L [facility]ORY Potassium 5.9 (H) 3.5 - 5.0 [facility] mmol/L [facility] Comment: Please note: ??Patients with WBC >100,00 0 may have falsely elevated Potassium levels. ??For accurate Potassium quantif ication in these patients send serum separator tube (gold top) for subsequent determinations. ??Contact the Clinical Chemistry Laboratory if there are any qu estions. Chloride 102 98 - 107 mmol/L [facility]ORAT[facility] CO2 15 (L) 22 - 31 mmol/L [facility]OR[facility] Anion Gap 23 (H) 5 - 15 mmol/L [facility] LABORATORY Specimen Anatomical Collection Method Collection Time Receive d Time (Source) Location / / Volume Laterality Blood 01/23/2022 6:00 AM 2 6:08 EDT AM EDT Resulting Agency Comment Spec In Lab Cristina Hillman APRN CHEMISTRY ORDERABLES Performing Organization Address City/State/[place] [address] (ABNORMAL) CK (01/23/2022 6:00 AM EDT) athologist Signature CK, Total 158,930 0 - 200 [facility] [place] (H) unit/L [facility] LABOR[facility]ORY Specimen Anatomical Collection Method Collection Time Receive d Time (Source) Location / / Volume Laterality Blood 01/23/2022 6:00 AM 2 6:08 EDT AM EDT Resulting Agency Comment Spec In Lab Gemma B Pentland AGRICULTURAL EXTENSION OFFICER CHEMISTRY ORDERABLES Performing Organization Address City/State/[place] [address] (ABNORMAL) Troponin (01/23/2022 6:00 AM EDT) P athologist Signature Troponin-T 0.35 (H) 0.00 - [facility] 0.00 ng/mL [facility] Comment: The 99th percentile for Troponin T is le ss than 0.01 ng/mL, any detectable cTnT concentration using this assay should be considered elevated. According to the third universal definit ion of myocardial infarction the following criteria with a clinical prese ntation consistent with acute myocardial ischemia meets the diagnosis for a myocardial infarction (VT). Detection of a rise and/or fall of [...] additional sample may be indicated. Reference: Third [place] Definition of Myocardial Infarction. Journal of the [place] [employer] 2012;60:1581-98 Specimen Anatomical Collection Method Collection Time Receive d Time (Source) Location / / Volume Laterality Blood 01/23/2022 6:00 AM 2 6:08 EDT AM EDT Resulting Agency Comment Spec In Lab Gemma B Pentland AGRICULTURAL EXTENSION OFFICER CHEMISTRY ORDERABLES Performing Organization Address City/[facility]/[place] [address] Blood culture (01/23/2022 6:00 AM EDT) Patholo gist Method Time Signature Blood Culture No growth [facility] at 5 days. [facility] LABOR[facility]ORY Specimen Anatomical Collection Method Collection Time Receive d Time (Source) Location / / Volume Laterality Blood 01/23/2022 6:00 AM 2 6:18 EDT AM EDT Comment: unknown Resulting Agency Comment Spec In Lab Gemma B Alycialand AGRICULTURAL EXTENSION OFFICER MICROBIOLOGY - BLOOD ORDERAB LES Performing Organization Address City/[facility]/[place] [address] (ABNORMAL) POCT Glucose (01/23/2022 4:58 AM EDT) athologist Signature POC Glucose 205 (H) 65 - 199 [facility] Comment: Supplemental ranges: <140 mg/dL before meals <180 mg/dL all other times of the day Specimen Anatomical Collection Method Collection Time Receive d Time (Source) Location / / Volume Laterality Blood 01/23/2022 4:58 AM 2 4:58 EDT AM EDT Tex Robles MD POINT OF CARE TEST ORDERABLE S Performing Organization Address City/[facility]/[place] [address] Hepatitis B Surface Antibody (01/23/2022 4:49 AM EDT) P athologist Signature HepB Surface 418.0 IU/L [facility] Ab Quant [facility] Comment: HepB Surface Ab Quant: Unvaccinated: < 8.5 IU/L Vaccinated: > 11.5 IU/L HepB Surface Ab Positive [facility] LABORAT[facility] Comment: Patient is considered to be immune to HB V infection. Expected Results: Vaccinated: Positive Unvaccinated: Negative Specimen Anatomical Collection Method Collection Time Receive d Time (Source) Location / / Volume Laterality Blood 01/23/2022 4:49 AM 2 4:56 EDT AM EDT Resulting Agency Comment Spec In Lab Gemma B Alycialand AGRICULTURAL EXTENSION OFFICER IMMUNOLOGY ORDERABLES Performing Organization Address City/[facility]/[place] [address] Hepatitis C Antibody (01/23/2022 4:49 AM EDT) Analysis Performed At Patho logist Time Signature Hepatitis C Ab Negative Negative [facility] LABORATORY Specimen Anatomical Collection Method Collection Time Receive d Time (Source) Location / / Volume Laterality Blood 01/23/2022 4:49 AM 2 4:56 EDT AM EDT Resulting Agency Comment Spec In Lab Gemma B Pentland AGRICULTURAL EXTENSION OFFICER IMMUNOLOGY ORDERABLES Performing Organization Address City/State/[place] [address] (ABNORMAL) Potassium (01/23/2022 4:49 AM EDT) P athologist Signature Potassium 6.6 3.5 - 5.0 [facility] [place] (Critical) mmol/L [facility] Comment: Called by: kvng, Read [...] Comment Spec In Lab Gemma B Pentland AGRICULTURAL EXTENSION OFFICER CHEMISTRY ORDERABLES Performing Organization Address City/State/[place] [address] (ABNORMAL) Hemogram (01/23/2022 4:49 AM EDT) Patholo gist Method Time Signature WBC 12.1 (H) 4.0 - 9.5 [facility] x10(3)/[facility] LABORATORY RBC 5.49 4.58 - [facility] 5.54 [facility] x10(6)/[facility] LABORATORY Hemoglobin 17.6 (H) 13.7 - [facility] 16.5 g/dL [facility] Hematocrit 50.3 (H) 40.5 - [facility] [place] 48.5 % [facility] MCV 91.6 82.9 - [facility] [place] 93.1 [facility] LABORATORY MCH 32.1 27.5 - [facility] [place] 32.1 pg [facility] MCHC 35.0 32.0 - [facility] 35.7 g/dL [facility] Platelets 184 145 - 357 [facility] x10(3)/[facility] LABORATORY RDWSD 41.9 36.0 - [facility] 45.0 [facility] RDWCV 12.3 11.4 - [facility] 13.8 % [facility] LAB[facility] MPV 9.7 7.6 - 12.9 [facility] LABORATORY nRBC % Auto 0.2 % [facility] LABORATORY nRBC Abs Auto 0.030 (H) 0.000 - [facility] 0.000 [facility] x10(3)/[facility] LABORATORY Specimen Anatomical Collection Method Collection Time Receive d Time (Source) Location / / Volume Laterality Blood 01/23/2022 4:49 AM 4:56 EDT AM EDT Resulting Agency Comment Spec In Lab Cristina Hillman APRN HEMATOLOGY ORDERABLES Performing Organization Address City/State/[place] [address] Upper Extremity w [...] who have questions please contact the health manager wound care that requested your imaging first. ? Electronically signed by: Rex Addison MD, [facility] ([phone]), at 01/23/2022 4:58 AM Narrative 01/23/2022 4:58 [...] ho have questions please contact the health manager wound care that requested your imaging first. Electronically signed by: Rex Addison MD, [facility] ([phone]), at 01/23/2022 4:58 AM Cristina Hillman APRN [...] who have questions please contact the health manager wound care that requested your imaging first. ? Electronically signed by: Rex Addison MD, [facility] ([phone]), at 01/23/2022 4:39 AM Narrative 01/23/2022 4:39 AM EDT EXAMINATION: CT CHEST WO CONTRAST (GENERIC) CLINICAL HISTORY: Aspiration Hypoxia [id number] to XR imaging. Presenting with cardiac arrest s/p ROSC, unclear etiology. TECHNIQUE: Noncontrast CT chest. Absence of intravenous contrast renders suboptimal assessment of potential paren chymal and mediastinal masses as well as hilar lymphadenopathy, and blood vessels and cardiovascular structures. COMPARISON: None Procedure Note Rex Addison MD - 01/23/2022 EXAMINATION: CT CHEST WO CONTRAST (GENER IC) CLINICAL HISTORY: Aspiration Hypoxia [id number] to XR imaging. Presenting with cardiac arrest [...] ho have questions please contact the health manager wound care that requested your imaging first. Electronically signed by: Rex Addison MD, [facility] ([phone]), at 01/23/2022 4:39 AM [facility] ORDER[facility]LES CT Lower Extremity wo [...] who have questions please contact the health manager wound care that requested your imaging first. ? Electronically signed by: Melita Mills MD, [facility] ([phone]), at 01/24/2022 1:45 PM Narrative 01/24/2022 1:45 [...] ho have questions please contact the health manager wound care that requested your imaging first. Electronically signed by: Melita Mills MD, [facility] ([phone]), at 01/24/2022 1:45 PM Gemma B Pentland AGRICULTURAL EXTENSION OFFICER IMG CT ORDERABLES CT Head wo Contrast [...] who have questions please contact the health manager wound care that requested your imaging first. ? Electronically signed by: Rex Addison MD, [facility] ([phone]), at 01/23/2022 4:27 AM Narrative 01/23/2022 4:27 [...] ho have questions please contact the health manager wound care that requested your imaging first. Electronically signed by: Rex Addison MD, [facility] ([phone]), at 01/23/2022 4:27 AM Cristina Hillman APRN [...] p lanned procedure. ?? Hand Hygiene: The evidence specialist did perform h and hygiene prior to [...] ease. Good wave form. Procedure Comments: N/A Gemma B Pentland AGRICULTURAL EXTENSION OFFICER PROCEDURE/MINOR SURGICAL ORD ERABLES XR Abdomen 1 [...] who have questions please contact the health manager wound care that requested your imaging first. ? Electronically signed by: Jacky Mello MD, [facility] ([phone]), at 01/23/2022 8:39 AM Narrative 01/23/2022 8:39 [...] ho have questions please contact the health manager wound care that requested your imaging first. Electronically signed by: Jacky Mello MD, [facility] ([phone]), at 01/23/2022 8:39 AM Cristina B Rafy AGRICULTURAL EXTENSION OFFICER IMG DX ORDERABLES XR Chest One View [...] who have questions please contact the health manager wound care that requested your imaging first. ? Narrative [...] body and tip not included in the [id number]-[id number] w. No focal consolidation.No sizable pleura l [...] body and tip not included in the [id number] w. No focal consolidation.No sizable pleura l [...] ho have questions please contact the health manager wound care that requested your imaging first. Gemma B Pentland AGRICULTURAL EXTENSION OFFICER IMG DX ORDERABLES APTT (01/23/2022 1:55 AM EDT) P athologist Signature PTT 25 25 - 37 sec [facility] Comment: The PTT is NOT [...] Robles MD HEMATOLOGY ORDERABLES Performing Organization Address City/State/[place] [address] (ABNORMAL) Prothrombin Time (01/23/2022 1:55 AM EDT) P athologist Signature PT 14.4 (H) 9.4 - 12.5 [facility] LABORATORY INR 1.3 [facility] Comment: An INR <2.0 indicates [...] Robles MD HEMATOLOGY ORDERABLES Performing Organization Address City/[facility]/[place] [address] Fibrinogen (01/23/2022 1:55 AM EDT) P athologist Signature Fibrinogen 349 200 - 393 [facility] mg/dL [facility] Comment: A fibrinogen level >100 mg/dL is adequat e for hemostasis in most patients without underlying bleeding disorders. Specimen Anatomical Collection Method Collection Time Receive d Time (Source) Location / / Volume Laterality Blood 01/23/2022 1:55 AM 2 1:59 EDT AM EDT Resulting Agency Comment Spec In Lab Tex Robles MD HEMATOLOGY ORDERABLES Performing Organization Address City/[facility]/[place] [address] (ABNORMAL) Rapid Drug Screen w/o Confirmation, Urine (01/23/2022 1:45 AM EDT) [facility] Method Time Signature U Barbiturates Presumptive None [facility] Screen Pos (A) Detected [facility] Comment: The barbiturate screen detects barbitura [...] Benzodiazepines Screen Presumptive Pos (A) None Detected [facility] Comment: The benzodiazepines screen detects [...] U Cocaine Screen None Detected None Detected [facility] Comment: The cocaine metabolites screen detects b enzoylecgonine (Cocaine Metabolite) at concentrations >150 ng/mL. A ? Presumptive Positive? result indicates that the screening result was positive but has not yet been confirmed by a highly-specific method. As with any screen, occasional false positive re sults from cross-reacting substances may occur. Not for Medico-Legal Purposes. U Methadone Metabolites None Detected None Detected [facility] LABORATORY Comment: The methadone [...] U Opiate Screen None Detected None Detected [facility] Comment: The opiates screen detects opiates at co ncentrations >300 ng/mL. Please note that oxycodone, oxymorphone, fentanyl, tramadol, and other synthetic opioids are not detected by [facility] opiate screen. A ? Presumptive Positive? result indicates that the screening result was positive but has not yet been confirmed by a highly-specific method. As with any screen, occasional false positive re sults from cross-reacting substances may occur. Not for Medico-Legal Purposes. U Cannabinoid Screen None Detected None Detected Ren WEBB [facility] Comment: The marijuana metabolites screen detects the THC metabolite (55-amk-2-carboxy-delta 9-THC) at concen trations >20 ng/mL. A ? Presumptive Positive? result indicates that the screening result was positive but has not yet been confirmed by a highly-specific method. As with any screen, occasional false positive re sults from cross-reacting substances may occur. Not for Medico-Legal Purposes. U Oxycodone Screen Presumptive Pos (A) None Detected [facility] Comment: The oxycodone screen detects oxycodone a nd oxymorphone at concentrations >100 ng/mL. A ? Presumptive Positive? result indicates that the screening result was positive but has not yet been confirmed by a highly-specific method. As with any screen, occasional false positive re sults from cross-reacting substances may occur. Not for Medico-Legal Purposes. U Buprenorphine Screen None Detected None Detected [facility] Comment: The buprenorphine screen detects bupreno rphine at concentrations >5 ng/mL. A ? Presumptive Positive? result indicates that the screening result was positive but has not yet been confirmed by a highly-specific method. As with any screen, occasional false positive re sults from cross-reacting substances may occur. Not for Medico-Legal Purposes. U Fentanyl Screen Presumptive Pos (A) None Detected [facility] Comment: The fentanyl screen detects fentanyl at concentrations >2 ng/mL. A ? Presumptive Positive? result indicates that the screening result was positive but has not yet been confirmed by a highly-specific method. As with any screen, occasional false positive re sults from cross-reacting substances may occur. Not for Medico-Legal Purposes. U Tricyclics Screen None Detected None Detected [facility] Comment: The tricyclics screen detects [...] U Ethanol Screen None Detected None Detected [facility] Comment: This urine ethanol assay detect s ethanol at concentrations >/= 100 mg/L. U Amphetamines Screen None Detected None Detected [facility] Comment: The amphetamine screen detects d-ampheta mine and d-methamphetamine at concentrations >300 ng/mL. A ? Presumptive Positive? result indicates that the screening result was positive but has not yet been confirmed by a highly-specific method. As with any screen, occasional false positive re sults from cross-reacting substances may occur. Not for Medico-Legal Purposes. U Adulterants Screen None Detected None Detected Ren JON [facility] Comment: No adulteration or dilution of [...] Organization Address City/State/[place] [address] Rapid Drug Screen, Urine (MEGHNA Request) (01/23/2022 1:45 AM EDT) [facility] gist Method Time Signature MEGHNA Conf No [facility] LABORATORY MEGHNA Requested See Comment [facility] Comment: Refer to Rapid Drug Screen w/o Confirmation, Urine for results. Specimen Anatomical Collection Method Collection Time Receive d Time (Source) Location / / Volume Laterality Urine 01/23/2022 1:45 AM 2 1:52 EDT AM EDT Resulting Agency Comment Spec In Lab Cristina Hillman AGRICULTURAL EXTENSION OFFICER URINE ORDERABLES Performing Organization Address City/State/[place] [address] (ABNORMAL) _Urinalysis with microscopic (01/23/2022 1:30 AM EDT) [facility] Method Time Signature Glucose UA Negative Negative [facility] mg/dL [facility]ORY Protein UA >=300 (A) Negative [facility] Bilirubin UA Moderate (A) Negative [facility] mg/dL [facility] Comment: Clinical correlation required for positi ve Urine Bilirubin results as false positive may occur with some drugs and d rug related products. If a false positive is suspected a serum total bili villaseñor should be considered if clinically indicated. Urobilinogen UA Normal Normal mg/dL [facility] pH UA 6.5 5.0 - 8.0 [facility] Blood UA Large (A) Negative mg/dL [facility] Ketones UA Trace (A) Negative mg/dL [facility] Nitrite UA Positive (A) Negative [facility] Leukocytes UA Negative Negative [facility] LABORATORY Appearance UA Cloudy (A) Clear [facility] Spec [place] UA >=1.030 (A) 1.006 - 1.030 [facility] Color UA Brown (A) [facility] RBC UA 2 0 - 3 /HPF [facility] Comment: Interpret with caution, manual microscopic results are from an unspun specimen. WBC UA <1 0 - 3 /HPF [facility] Comment: Interpret with caution, manual microscopic results are from an unspun specimen. Bacteria UA Many (A) None /HPF [facility] Comment: Interpret with caution, manual microscopic results are from an unspun specimen. Squam Epith UA 1 <=4 /HPF [facility] Comment: Interpret with caution, manual microscopic results are from an unspun specimen. Hyaline Cast UA <1 0 - 2 /LPF [facility] K [facility] Comment: Interpret with caution, manual microscopic results are from an unspun specimen. Amorph Mila UA Many (A) None /HPF [facility] Comment: Interpret with caution, manual microscopic results are from an unspun specimen. Specimen Anatomical Collection Method Collection Time Receive d Time (Source) Location / / Volume Laterality Urine 01/23/2022 1:30 AM 2 1:41 EDT AM EDT Resulting Agency Comment Spec In Lab Gemma B Pentland AGRICULTURAL EXTENSION OFFICER URINE ORDERABLES Performing Organization Address City/[facility]/[place] [address] Blood culture (01/23/2022 1:26 AM EDT) [facility] [employer] Method Time Signature Blood Culture No growth [facility] at 5 days. [facility] Specimen Anatomical Collection Method Collection Time Receive d Time (Source) Location / / Volume Laterality Blood 01/23/2022 1:26 AM 2 1:38 EDT AM EDT Comment: r wrist Resulting Agency Comment Spec In Lab Jaquelinma B Pentland AGRICULTURAL EXTENSION OFFICER MICROBIOLOGY - BLOOD ORDERAB LES Performing Organization Address City/[facility]/[place] [address] (ABNORMAL) BLOOD GAS 2 ARTERIAL (01/23/2022 1:25 AM EDT) [facility] [employer] Method Time Signature pH Art 7.32 (L) 7.35 - [facility] 7.45 [facility] pCO2 Art 33 (L) 35 - 45 [facility] mmHg [facility] pO2 Art 68 (L) 85 - 104 [facility] mmHg [facility] HCO3 Art 16.8 (L) 20.0 - [facility] 26.0 [facility] mmol/L [facility] BE Art -9.3 (L) -3.0 - 3.0 [facility] mmol/L [facility] Hgb Blood Gas 20.4 13.7 - [facility] (Critical) 16.5 g/dL [facility] Comment: Noted by instrument mechanic weapons system. O2HB Art 92.4 (L) 94.0 - 97.0 % [facility] COHB Art 0.2 % [facility] Comment: Nonsmokers: 0.5-1.5% COHB Smokers: Variable, but usually less than 10% Toxic: 20-30% COHB Lethal: Greater than 60% COHB METHB Art 0.7 <=1.5 % [facility] Na Whole Blood 141 135 - 145 mmol/L [facility] K Whole Blood 5.3 (H) 3.5 - 5.0 mmol/L [facility] Comment: Please note: Patients with WBC >100,000 may have falsely elevated Potassium levels. Contact the Clinical Chemistry L aboratory if there are any questions. ICa Whole Blood 0.97 (L) 1.15 - 1.33 mmol/L [facility] Comment: Note: ??Total bilirubin higher than 20 m g/dL may lead to falsely low ionized calcium. CL Whole Blood 106 98 - 107 mmol/L [facility] Gluc Whole Bld 158 65 - 199 mg/dL [facility] Comment: Diabetes: >=200 mg/dL plus symp toms. Lactate WB 4.1 (Critical) 0.5 - 2.2 mmol/L [facility] Comment: Noted by instrument mechanic weapons system. FIO2 Art 75 % [facility] PF Ratio Art [address] [facility] Specimen Anatomical Collection Method Collection Time Receive d Time (Source) Location / / Volume Laterality Blood 01/23/2022 1:25 AM 2 1:25 EDT AM EDT Tex Robles MD CHEMISTRY ORDERABLES Performing Organization Address City/State/[place] [address] EKG 12 Lead (01/23/2022 12:46 AM EDT) Component Value Ref Range Test Analysis Performed Pathologis t Method Time At Signature Ventricular rate 147 BPM MUSE SYSTEM Atrial Rate 147 BPM MUSE SYSTEM P-R Interval 130 ms MUSE SYSTEM QRS Duration 84 ms MUSE SYSTEM Q-T Interval 268 ms MUSE SYSTEM QTC Calculated 419 ms MUSE SYSTEM (Bezet) Calculated P [place] 60 degrees MUSE SYSTEM Calculated R [place] 42 degrees MUSE SYSTEM Calculated T [place] 28 degrees MUSE SYSTEM INTERPRETATION Sinus tachycardia [...] EDT 12:39 PM EDT Gemma B Pentland AGRICULTURAL EXTENSION OFFICER ECG ORDERABLES Performing Organization Address City/State/ZIP Code Phon e Number MUSE SYSTEM T4, free (01/23/2022 12:45 AM EDT) P athologist Signature Free T4 1.19 0.93 - 1.70 [facility] ng/dL [facility] Comment: Reference Interval (ng/dL): Females: ??First Trimester: 0.97-1.68 ??Second Trimester: 0.77-1.51 ??Third Trimester: 0.77-1.49 Specimen Anatomical Collection Method Collection Time Receive d Time (Source) Location / / Volume Laterality Blood 01/23/2022 12:45 01/23/2022 1:13 AM EDT AM EDT Resulting Agency Comment Spec In Lab Gemma B Pentland AGRICULTURAL EXTENSION OFFICER CHEMISTRY ORDERABLES Performing Organization Address City/State/[place] [address] Triglyceride (01/23/2022 12:45 AM EDT) P athologist Signature Triglycerides 273 mg/dL [facility] Comment: Average Risk/Lower Risk: <150 mg/dL Borderline High Risk: 150-199 mg/dL High Risk: 200-499 mg/dL Very High Risk: >av=191 mg/dL Specimen Anatomical Collection Method Collection Time Receive d Time (Source) Location / / Volume Laterality Blood Venous Draw / 01/23/2022 12:45 01/23/2022 1:13 Unknown AM EDT AM EDT Resulting Agency Comment Spec In Lab Cristina Hillman APRN CHEMISTRY ORDERABLES Performing Organization Address City/[facility]/ZIP Code Phon e Number [address] Type and Screen Validity (01/23/2022 12:45 AM EDT) [facility] Method Time Signature T&S only valid [facility] Comment: This Type and Screen result is only valid at the [facility] Specimen Anatomical Collection Method Collection Time Receive d Time (Source) Location / / Volume Laterality Blood 01/23/2022 12:45 01/23/2022 AM EDT 12:51 AM EDT Resulting Agency Comment Spec In Lab Cristina Hillman APRN BLOOD BANK ORDERABLES Performing Organization Address City/[facility]/ZIP Code Phon e Number [address] Scan, Peripheral Blood (01/23/2022 12:45 AM EDT) athologist Signature Plat Estimate Normal [facility] RBC Morphology Normal [facility] Specimen Anatomical Collection Method Collection Time Receive d Time (Source) Location / / Volume Laterality Blood 01/23/2022 12:45 01/23/2022 1:08 AM EDT AM EDT Resulting Agency Comment Spec In Lab Cristina [facility] AGRICULTURAL EXTENSION OFFICER HEMATOLOGY ORDERABLES Performing Organization Address City/[facility]/[place] [address] (ABNORMAL) Differential, Automated (01/23/2022 12:45 AM EDT) [facility] Method Time Signature Neutrophils % 71.4 % [facility] Neutr Abs (ANC) 16.11 (H) 1.70 - [facility] 6.10 [facility] x10(3)/[facility] LABORATORY Lymphocytes % 17.4 % [facility] Lymphocytes Abs 3.9 (H) 0.9 - 3.2 [facility] x10(3)/[facility] LABORATORY Monocytes % 9.3 % [facility] Monocyte Abs 2.1 (H) 0.3 - 0.9 [facility] x10(3)/[facility] LABORATORY Eosinophils % 0.0 % [facility] Eosinophils Abs 0.0 0.0 - 0.4 [facility] x10(3)/[facility] LABORATORY Basophils % 0.5 % [facility] Basophils Abs 0.1 0.0 - 0.1 [facility] x10(3)/[facility] LABORATORY Immature Gran % 1.40 % [facility] Comment: Immature granulocytes(IG's)percentage an d absolute count will include metamyelocytes, myelocytes, and promyelo cytes. Blood smears from CBCs yielding IG's will be scanned manually for concor dance. If this scan disagrees with the automated IG or if promyelocytes are not ed, a manual differential will be performed. Gemini Gran Abs 0.31 (H) 0.00 - 0.04 x10(3)/[facility] LABORATORY Specimen Anatomical Collection Method Collection Time Receive d Time (Source) Location / / Volume Laterality Blood 01/23/2022 12:45 01/23/2022 1:08 AM EDT AM EDT Resulting Agency Comment Spec In Lab Cristina Hillman APRN HEMATOLOGY ORDERABLES Performing Organization Address City/State/[place] [address] (ABNORMAL) Hemogram (01/23/2022 12:45 AM EDT) P athologist Signature WBC 22.6 (H) 4.0 - 9.5 [facility] x10(3)/[facility] LABORATORY RBC 6.64 (H) 4.58 - [facility] 5.54 [facility] x10(6)/[facility] LABORATORY Hemoglobin 21.5 13.7 - [facility] (Critical) 16.5 g/dL [facility] Comment: Called by: HERMAN, Read back by: Halley Hoyt, Date/Time:01/23/22 01:33. Corrected from 21.5 g/dL [CRIT] on 01/23 1:33:32 EDT by Shelli Sauceda Hematocrit 63.2 (H) 40.5 - 48.5 % [facility] MCV 95.2 (H) 82.9 - 93.1 fL [facility] MCH 32.4 (H) 27.5 - 32.1 pg [facility] MCHC 34.0 32.0 - 35.7 g/dL [facility] Platelets 269 145 - 357 x10(3)/[facility] LABORATORY RDWSD 43.9 36.0 - 45.0 fL [facility] RDWCV 12.3 11.4 - 13.8 % [facility] MPV 9.7 7.6 - 12.[address] [facility] nRBC % Auto 0.3 % [facility] nRBC Abs Auto 0.060 (H) 0.000 - 0.000 x10(3)/[facility] LABORATORY Specimen Anatomical Collection Method Collection Time Receive d Time (Source) Location / / Volume Laterality Blood 01/23/2022 12:45 01/23/2022 1:08 AM EDT AM EDT Resulting Agency Comment Spec In Lab Gemma B Pentland AGRICULTURAL EXTENSION OFFICER HEMATOLOGY ORDERABLES Performing Organization Address City/[facility]/[place] [address] ABORH Recheck Status (01/23/2022 12:45 AM EDT) [facility] gist Method Time Signature ABORH Recheck Order Placed [facility] LABORATORY ABORH Type Complete [facility] LABORATORY Specimen Anatomical Collection Method Collection Time Receive d Time (Source) Location / / Volume Laterality Blood 01/23/2022 12:45 01/23/2022 AM EDT 12:51 AM EDT Resulting Agency Comment Spec In Lab Gemma B Pentland AGRICULTURAL EXTENSION OFFICER BLOOD BANK ORDERABLES Performing Organization Address City/[facility]/[place] [address] Antibody screen (01/23/2022 12:45 AM EDT) Patholo gist Method Time Signature Ab Screen Negative [facility] LABORATORY Expires at 01/26/2022 [facility] 5581 on: [facility] Specimen Anatomical Collection Method Collection Time Receive d Time (Source) Location / / Volume Laterality Blood 01/23/2022 12:45 01/23/2022 AM EDT 12:51 AM EDT Resulting Agency Comment Spec In Lab Gemma B Pentland AGRICULTURAL EXTENSION OFFICER BLOOD BANK ORDERABLES Performing Organization Address City/State/ZIP Code Phon e Number [address] ABO/Rh Typing (01/23/2022 12:45 AM EDT) P athologist Signature ABORh Type A Pos [facility] Specimen Anatomical Collection Method Collection Time Receive d Time (Source) Location / / Volume Laterality Blood 01/23/2022 12:45 01/23/2022 AM EDT 12:51 AM EDT Resulting Agency Comment Spec In Lab Gemma B Pentland AGRICULTURAL EXTENSION OFFICER BLOOD BANK ORDERABLES Performing Organization Address City/State/[place] [address] (ABNORMAL) Basic Metabolic Panel (non-fasting) (01/23/2022 12:45 AM EDT) P athologist Signature Glucose Lvl 143 65 - 199 [facility] mg/dL [facility] Comment: Diabetes: >=200 mg/dL plus symp toms BUN 47 (H) 10 - 20 mg/dL [facility] Creatinine 4.42 (H) 0.80 - 1.50 mg/dL [facility] Sodium 142 135 - 145 mmol/L [facility] Potassium 7.6 (Critical) 3.5 - 5.0 mmol/L [facility] Comment: Called by: , Read back by: halley hoyt, Date/Time:01/23/22 02:03_. Please note: ??Patients with WBC >100,00 0 may have falsely elevated Potassium levels. ??For accurate Potassium quantif ication in these patients send serum separator tube (gold top) for subsequent determinations. ??Contact the Clinical Chemistry Laboratory if there are any qu estions. Chloride 102 98 - 107 mmol/L [facility] CO2 17 (L) 22 - 31 mmol/L [facility] Anion Gap 23 (H) 5 - 15 mmol/L [facility] Calcium 5.8 (Critical) 8.5 - 10.5 mg/dL [facility] Comment: Called by: kvng, Read back by: manny ruiz, Date/Time:01/23/22 02:03_. Estimated GFR 17 (L) >=60 mL/min/1.73 m?? [facility] Comment: This patient's estimated GFR [...] Organization Address City/State/[place] [address] (ABNORMAL) Phosphorus (01/23/2022 12:45 AM EDT) P athologist Signature Phosphorus 10.0 2.5 - 4.5 [facility] (Critical) mg/dL [facility] Comment: Called by: kvng, Read back by: manny ruiz, Date/Time:01/23/22 02:03_. Specimen Anatomical Collection Method Collection Time Receive d Time (Source) Location / / Volume Laterality Blood 01/23/2022 12:45 01/23/2022 1:08 AM EDT AM EDT Resulting Agency Comment Spec In Lab Gela Novak MD CHEMISTRY ORDERABLES Performing Organization Address City/[facility]/[place] [address] HOSPITAL [address] (ABNORMAL) Magnesium (01/23/2022 12:45 AM EDT) athologist Signature Magnesium 1.08 (H) 0.69 - 1.07 [facility] mmol/L [facility] Specimen Anatomical Collection Method Collection Time Receive d Time (Source) Location / / Volume Laterality Blood 01/23/2022 12:45 01/23/2022 1:08 AM EDT AM EDT Resulting Agency Comment Spec In Lab Gela Novak MD CHEMISTRY ORDERABLES Performing Organization Address City/[facility]/[place] [address] (ABNORMAL) TSH [place] (01/23/2022 12:45 AM EDT) athologist Signature TSH 7.69 (H) 0.27 - 4.20 [facility] m[facility]/mL [facility] Comment: Reference Interval (mcIU/mL): Females: ??First Trimester: 0.23-3.88 ??Second Trimester: 0.22-3.90 ??Third Trimester: 0.44-4.66 Specimen Anatomical Collection Method Collection Time Receive d Time (Source) Location / / Volume Laterality Blood 01/23/2022 12:45 01/23/2022 1:08 AM EDT AM EDT Resulting Agency Comment Spec In Lab Cristina Hillman APRN CHEMISTRY ORDERABLES Performing Organization Address City/[facility]/[place] [address] (ABNORMAL) CK (01/23/2022 12:45 AM EDT) athologist Signature CK, Total >[id number] 0 - 200 JOS[facility] MANDO (H) unit/L [facility] Specimen Anatomical Collection Method Collection Time Receive d Time (Source) Location / / Volume Laterality Blood 01/23/2022 12:45 01/23/2022 1:08 AM EDT AM EDT Resulting Agency Comment Spec In Lab Gemma B Pentland AGRICULTURAL EXTENSION OFFICER CHEMISTRY ORDERABLES Performing Organization Address City/State/ZIP [place] [address] (ABNORMAL) Troponin (01/23/2022 12:45 AM EDT) athologist Signature Troponin-T 0.43 (H) 0.00 - [facility] [place] 0.00 ng/mL [facility] Comment: The 99th percentile for Troponin T is le ss than 0.01 ng/mL, any detectable cTnT concentration using this assay should be considered elevated. According to the third universal definit ion of myocardial infarction the following criteria with a clinical prese ntation consistent with acute myocardial ischemia meets the diagnosis for a myocardial infarction (VT). Detection of a rise and/or fall of [...] additional sample may be indicated. Reference: Third [place] Definition of Myocardial Infarction. Journal of the [place] [employer] 2012;60:1581-98 Specimen Anatomical Collection Method Collection Time Receive d Time (Source) Location / / Volume Laterality Blood 01/23/2022 12:45 01/23/2022 1:08 AM EDT AM EDT Resulting Agency Comment Spec In Lab Gemma B Pentland AGRICULTURAL EXTENSION OFFICER CHEMISTRY ORDERABLES Performing Organization Address City/State/ZIP Code Phon e Number JOSH MANDO [address] (ABNORMAL) Hepatic Function Panel (01/23/2022 12:45 AM EDT) Analysis Performed At Patho logist Time Signature Total Protein 5.9 (L) 6.1 - 8.[address] [address] g/dL [facility] Albumin 3.1 (L) 3.2 - 5.[address] [address] g/dL [facility] AST >700 (H) 0 - 39 [facility] MANDO unit/L [facility] ALT >700 (H) 0 - 55 [facility] MANDO unit/L [facility] Alk Phos 71 40 - 130 [facility]/L [facility] Total 0.4 0.2 - 1.3 [facility] Bilirubin mg/dL [facility] Bili, Direct 0.2 0.0 - 0.3 [facility] MANDO mg/dL [facility] Specimen Anatomical Collection Method Collection Time Receive d Time (Source) Location / / Volume Laterality Blood 01/23/2022 12:45 01/23/2022 1:08 AM EDT AM EDT Resulting Agency Comment Spec In Lab Cristina Hillman AGRICULTURAL EXTENSION OFFICER CHEMISTRY ORDERABLES Performing Organization Address City/State/ZIP Code Phon e Number [address] Fibrinogen (01/23/2022 12:45 AM EDT) P athologist Signature Fibrinogen Disregard 200 - 393 [facility] Comment: A fibrinogen level >100 [...] Comment Spec In Lab Jaquelinma B Pentland AGRICULTURAL EXTENSION OFFICER HEMATOLOGY ORDERABLES Performing Organization Address City/[facility]/[place] [address] APTT (01/23/2022 12:45 AM EDT) P athologist Signature PTT Disregard 25 - 37 [facility] Comment: The PTT is NOT [...] Agency Comment Spec In Lab Jaquelinma B [facility] AGRICULTURAL EXTENSION OFFICER HEMATOLOGY ORDERABLES Performing Organization Address City/[facility]/[place] [address] Prothrombin Time (01/23/2022 12:45 AM EDT) P athologist Signature PT Disregard 9.4 - 12.5 [facility] Comment: Disregard results due to high hematocrit result interference Called by: antonella, Read back by: halley hoyt, Date/Time:01/23/22 01:39. Corrected from 12.7 sec [HI] on 01/23/22 1:39:53 EDT by Robson Booth INR Disregard [facility] Comment: An INR [...] Agency Comment Spec In Lab Cristina Hillman AGRICULTURAL EXTENSION OFFICER HEMATOLOGY ORDERABLES Performing Organization Address City/State/ZIP Code Phon e Number [address] POCT Glucose (01/23/2022 12:44 AM EDT) P athologist Signature POC Glucose 146 65 - 199 [facility] mg/dL [facility] Comment: Supplemental ranges: <140 mg/dL before meals <180 mg/dL all other times of the day Specimen Anatomical Collection Method Collection Time Receive d Time (Source) Location / / Volume Laterality Blood 01/23/2022 12:44 01/23/2022 AM EDT 12:44 AM EDT Tex Robles MD POINT OF CARE TEST ORDERABLE S Performing Organization Address City/State/[place] [address] MRSA PCR (01/23/2022 12:44 AM EDT) Patholo gist Method Time Signature MRSA Result Negative Negative [facility] MRSA Interp Negative for methicillin-resistant Staphylococcus aureus (MRSA) [facility] This test was performed using the GeneXpert?? Dx System an d the Xpert MRSA MEMORIAL Assay. The MRSA target DNA was not detec karina. The sample processing control and HOSPITAL probe check were valid. The performance of this test was determined by the [facility] Molecular Pathology Laboratory. It has been maximus red by the U.S. Food and Drug Administration for clinical use. Comment: [VERIFIED DATE]01.25.22 Verified By:Nora Shay (Electronic Signature) Specimen (Source) Anatomical Collection Method Collection Time Re ceived Time Location / / Volume Laterality Nasopharyngeal Swab 01/23/2022 12:44 06/11/2021 AM EDT 8:50 AM EDT Resulting Agency Comment Spec In Lab Cristina Hillman KTAERYNA MICROBIOLOGY - GENERAL ORDER JT Performing Organization Address City/State/ZIP [place] [address] (ABNORMAL) COVID-19 PCR (01/23/2022 12:44 AM EDT) [facility] Method Time Signature SARS-CoV-2 Detected (A) Not Detected [facility] RNA [facility] Comment: This result should be interpreted [...] diagnosis of COVID-19 is performed using the [employer] m OG S-CoV-2 Assay as authorized by the FDA Emergency Use Authorization (EUA). This EUA assay is intended for In-vitro Diagnostic (IVD) use with respiratory sp ecimens such as nasopharyngeal swabs collected from individuals during the ac ak chin phase of infection. This assay is performed based on the instructions for use provided by [employer] and additional guidance provided by CDC and FDA. Testing is performed in the [facility] Laboratory within the Department of Pathology and Laboratory Medicine at [facility], certified under the Clinical Laboratory Improvement [...] required or requested by public health [facility], positive specimens may be sent for [...] clinical management guidance information are available at [facility] Coronavirus Disease 2019 (COVID-19) webpage under Information fo r Healthcare Professionals (https://www.cdc.gov/coronavirus/2019-nc ov/hcp/index.html) Additional information about this and ot her EUA tests can be found in provider and patient fact sheets at the following FDA website: https://www.fda.gov/medical-devices/zbgdfpezuct-rleuhee-9585-gilqb-79-jqjkvqagi- ayn-zkiqducozuwgxg-gmonoaj-devices/vbyxt-skxlnoatnwp-zwbn SARS-Cov-2 RNA Source Trach Asp [facility] Specimen Anatomical Collection Method Collection Time Receive d Time (Source) Location / / Volume Laterality Tracheal 01/23/2022 12:44 01/23/2022 8:48 Aspirate AM EDT AM EDT Comment: Symptoms->COVID-19 Suspected Resulting Agency Comment Spec In Lab Cristina Hillman APRN MICROBIOLOGY - GENERAL ORDER JT Performing Organization Address City/State/[place] [address] documented in this encounter [...] Last dose on 04/04/22 at 0900, Routine Given 03/14/2022 8:26 AM [...] at 1719, Pain, for severe pain (7-10), M ay [...] Josh Peck RN)2040 (Given - Provider: Betzaida Francois, ÁNGEL) 0303 (Given - Provider: Betzaida tran RN)1248 [...] Peck RN) 0850 (Given - Provider: Josh ePck RN) 0819 (Gi honorio - Provider: Corina [...] tablet (COMPLETED) 2154 (Given - Provider: Hernán Carlos RN) 0850 (Given - Provider: Josh Peck [...] Provider: Corina Zabala RN) 10 mg, Oral, 2 TIMES DAILY, First dose ( after last modification) on 02/15/22 at 0900, Until Discontinued, Routine ergocalciferoL (vitamin [...] 0819 (Gi honorio - Provider: Corina Zabala, ÁNGEL) 1,000 mcg, Oral, DAILY, First dose on [...] 1 tablet, Oral, DAILY, First dose on 02/27/22 at 2000, Until Discontinued, Routine senna (Senokot) tablet 8.6 mg 0900 (Not Given - Provid er: Josh Peck RN - Reason: Patient/family refused) 0900 (Not Given - Provider: Josh river RN - Reason: Patient/family refused - Comment: lg bm today) 0900 (Not Given - Provider: Corina Zabala RN - Reason: Patient/family refused) 8.6 mg, Oral, DAILY, First dose on Fri at 0945, Until Discontinued, Routine sodium chloride 0.9 % (flush) (BD PosiFlush Normal Barbara ine 0.9) flush 5 mL 0834 (Given - Provider: Josh Peck RN)2158 (Given - Provider: Hernán Carlos RN) 0851 (Given - Provider: Josh Peck RN)2042 (Given - Provider: Betzaida Francois RN) 0823 [...] Zabala , RN)1248 (Given - Provider: Corina Zabala RN) 125 mg, Oral, 4 TIMES DAILY, [...] Oral, EVERY 4 HOURS PRN, Starting on Tue22 at 0941, Until Tue03/23/22 at 1332, Pain, [...] Oral, EVERY 4 HOURS PRN, Starting on Tue03/21/22 at 0941, Until Tue03/23/22 at 1332, Pain, [...] Until Tue03/23/22 at 1719, Opioid Reversal, for respiratory rate less than 6 or unresponsive., May repeat every 5 minutes to increase respiratory rate. DO NOT exc eed 0.12 mg total dose. Notify anesthesia immediately if administered., Routine oxyCODONE (Roxicodone) tablet 15 mg (CANCELED) 0242 (G iven - Provider: Brittney Ann, ÁNGEL)0642 (Given - Provider: Brittney Ann RN) 15 mg, Oral, EVERY 4 HOURS PRN, [...] 01/23/22 Precautions may be discontinued by the [facility] team after the required isolation period (10 or 20 days, depending on the clinical circumstances) when the patient is clinically improving and has be en afebrile for 24 hours without fever reducing medications. Estimated date patient will be eligible for precaution removal: 02/03/22 Please call [phone] with questions. Rule Out C. difficile 02/01/2022 [...] prior to 04/25/22 Please call Infection Prevention [phone] with questions. COVID-19Comment: Original COVID-19 test 01/23. Developed symptoms again 02/04/22 so extending isolation to 20 days. 02/04/2022 02/04/2022 02/09/20 1:57 PM EDT Eligible for precaution removal 02/13/22 History of COVID-19Comment: Retesting fo r COVID is not recommended unless infectious syndrome persists with no alternate explanation. 02/08/2022 02/08/2022 Positive test on 01/23/2022 Please do not retest prior to 04/25/2022 Please call Infection Prevention [phone] with questions. History of C. difficileComment: 03/19/2022 03/19/2022 Patient has met the 5 C's and is eligible to end soap and water contact precautions. Currently on PO vanc prophylacticly due to getting antibiotics for tx. documented as of this encounter Care Teams Trouble Shooting Mechanic Relationship Specialty Start Date End Date None PCP - General 03/10/19 None documented as of this encounter
--- OUTSIDE RECORDS SUMMARY | 2022-04-21 11:19 | XMS_ITS | Encounter Summary ---
:1990 Author Organization [facility] [place] [address] Care Team Providers Name Role Phone None Primary Care Provider Unavailable Reason for Visit Auth/Cert Specialty Diagnoses / Procedures Referred By Contact Refer red To Contact Diagnoses Cardiac arrest intubated med misuse/covid Ximena Robles MD [facility] Procedures ER IPI [facility] Pulmonary Medicine [place] [id number] Referral ID Status Reason Start Date Expiration Date Visits Requ ested Visits Authorized [id number] 1 1 Encounter Details Date Type Department Care Team Description 02/13/2022 Anesthesia Event Main Operating Room Susie Laguna MD [facility] [place] [address] [facility] Miguel Hinton CRNA [facility] [place] [address] [facility] [place] [address] Anesthesia Record Procedure Summary Procedure Name Responsible Anesthesia Start Anesthesia Stop Anesthesiologist Time Time DEBRIDEMENT SKIN AND Susie Johnson MD 02/13/22 0845 02/13/22 0958 SUBCU, LOWER EXTREMITY (WRVU 1.01) (Left Leg) Events Date Time Event Comment 02/13/2022 0845 AN Verify 0845 Start 0845 An Start Data 0851 An Induction 0853 An Intubation 0855 Anesthesia Ready 0956 Extubation/LMA Out 0956 an stop data 0958 Recovery or ICU Handoff Patient care was transferred to the destination unit staff after review of the patient's medica l history, current anesthetic/surgi moe status and plan, according to the Provider Handoff Checklist. 0958 Stop 1622 Name Total Midazolam 2 mg fentaNYL 100 mcg Propofol 150 mg PHENYLephrine 240 mcg Ondansetron 4 mg Dexamethasone 4 mg Ketamine 10 mg/mL 50 mg ketorolac (Toradol) (30 mg/mL) injection 30 mg Lactated Ringers 900 mL Agents Name O2 Air N2O Sevoflurane [...] catheter); Ultrasound Guidance; other (see comments) (13 greenlandic and 15 cm); Rogers Solano HAND WELT BUTTER; 03/04/22; 1400 (removed today by ) Rectal Tube 02/09/22; 0149; rectal 02/09/22 0149 by [place], 02/22/22 2300 by tube with balloon (specify [...] Machado RN 0922 Supraglottic Mask Ventilation: Not 02/13/22 0853 by Elizabeth, 0 02/13/22 0956 by Attempted (0); LMA Type: MARIA ELENA Duarte, MARIA ELENA Duarte; LMA Size: 5; Inserted by: elizabeth documented in this encounter Social History Tobacco [...] encounter OR Notes Anesthesia Postprocedure Evaluation - Susie Johnson MD - 02/13/2022 4:23 PM EDT Department of Anesthesiology Post-procedure Note Patient: Eric Packer Procedure Summary Date: 02/13/22 Room / Location: [facility] OR [address] [place] [address] MAIN OR Anesthesia Start: 844 Anesthesia Stop: 957 Procedures: DEBRIDEMENT SKIN AND SUBCU, LOWER EXTREMITY (WRVU 1.01) (Left Leg) DRESSING CHANGE (FOR OTHER THAN GALLOWAY) UNDER ANES., UPPER EXTREMITY (WRVU 0.86) (Left Leg) MODIFIER WOUND VAC (Left ) Diagnosis: (LUE and LLE fasciotomies) Surgeons: Shar Chatterjee MD Responsible Provider: Susie Johnson MD Anesthesia Type: general ASA Status: 3 All Anesthesia Providers: Anesthesiologist: Susie Johnson MD INVENTORY CONTROL SUPERVISOR: Miguel Hinton CRNA Vitals Value Taken Time BP 132/92 02/13/22 1100 Temp 37.2 ??C (99 ??F) 02/13/22 1000 Pulse 92 02/13/22 1114 Resp 15 02/13/22 1114 SpO2 99 % 02/13/22 1115 Pain Level 10 02/13/22 1103 Vitals shown include unvalidated device data. Patient Location: PACU/[facility] Level of Consciousness: Conscious but Sleepy Pain Management: Satisfactory Analgesia PONV: None Cardiovascular Status: At Baseline Respiratory Status: At Baseline Postoperative Fluid Status: Intravascular EUvolemia Possible Anesthetic Complications: NONE apparent at time of evaluation Final Primary Anesthesia Type: General (The anesthetic type performed was the same as planned.) Comments: Anesthesia Preprocedure Evaluation - Susie Johnson MD - 02/13/2022 8:26 AM EDT Pre-Anesthesia Evaluation for: Eric Packer [...] Arteriogram Lower Extremity 02/06/2022 Dagoberto Vivas MD [facility] INTERVENTIONL RAD ??? PRO DEBRIDEMENT BONE EA ADDL 20 SQCM 02/08/2022 EACH ADDITIONAL 20 SQ CM, OR PART THEREOF (WRVU 1.8) performed by Shar Chatterjee MD at [facility] PAIGE ? ? PRO DEBRIDEMENT BONE MUSCLE &/FASCIA 20 SQ CM/< Left 01/29/2022 DEBRIDEMENT SKIN, SUBCU, MUSCLE, BONE, LOWER EXTREMITY (WRVU 4.1) performed by Tom Valdovinos MD [facility] MAIN OR ? ? PRO DEBRIDEMENT BONE MUSCLE &/FASCIA 20 SQ CM/< Left 01/31/2022 DEBRIDEMENT SKIN, SUBCU, MUSCLE, BONE, LOWER EXTREMITY (WRVU 4.1) performed by Jose Branch MD at [facility] MAIN OR ? ? PRO DEBRIDEMENT BONE MUSCLE &/FASCIA 20 SQ CM/< Left 01/31/2022 DEBRIDEMENT SKIN, SUBCU, MUSCLE, BONE UPPER EXTREMITY (WRVU 4.1) performed by Jose Branch MDat [facility] MAIN OR ? ? PRO DEBRIDEMENT BONE MUSCLE &/FASCIA 20 SQ CM/< Left 02/02/2022 DEBRIDEMENT SKIN, SUBCU, MUSCLE, BONE UPPER EXTREMITY (WRVU 4.1) performed by Hina Avitia MD at [facility] OR ? ? PRO DEBRIDEMENT BONE MUSCLE &/FASCIA 20 SQ CM/< Left 02/02/2022 DEBRIDEMENT SKIN, SUBCU, MUSCLE, BONE, LOWER EXTREMITY (WRVU 4.1) performed by Hina Avitia MD at [facility] OR ? ? PRO DEBRIDEMENT MUSCLE AND FASCIA 20 SQ CM/< Left 01/26/2022 DEBRIDEMENT SKIN, SUBCU, MUSCLE, LOWER EXTREMITY (WRVU 2.7) performed by Sigifredo Garcia MD at [facility] OR ? ? PRO DEBRIDEMENT MUSCLE AND FASCIA 20 SQ CM/< Left 01/26/2022 DEBRIDEMENT SKIN, SUBCU, MUSCLE, UPPER EXTREMITY (WRVU 2.7) performed by Sigifredo Garcia MD at [facility] OR ? ? PRO DEBRIDEMENT MUSCLE AND FASCIA 20 SQ CM/< Left 02/05/2022 DEBRIDEMENT SKIN, SUBCU, MUSCLE, LOWER EXTREMITY (WRVU 2.7) performed by Tom Valdovinos MD at [facility] OR ? ? PRO DEBRIDEMENT MUSCLE AND FASCIA 20 SQ CM/< Left 02/04/2022 DEBRIDEMENT SKIN, SUBCU, MUSCLE, LOWER EXTREMITY (WRVU 2.7) performed by Sigifredo Garcia MD at [facility] OR ? ? PRO DEBRIDEMENT SUBCUTANEOUS TISSUE 20 SQCM/< Left 02/04/2022 DEBRIDEMENT SKIN AND SUBCU, UPPER EXTREMITY (WRVU 1.01) performed [facility] ? ? PRO DEBRIDEMENT SUBCUTANEOUS TISSUE 20 SQCM/< Left 02/08/2022 DEBRIDEMENT SKIN AND SUBCU, LOWER EXTREMITY (WRVU 1.01) performed by Shar Chatterjee MD at [facility] OR ? ? PRO DEBRIDEMENT SUBCUTANEOUS TISSUE 20 SQCM/< Left 02/09/2022 DEBRIDEMENT SKIN AND SUBCU, LOWER EXTREMITY (WRVU 1.01) performed by Shar Chatterjee MD at [facility] OR ? ? PRO DEBRIDEMENT SUBCUTANEOUS TISSUE 20 SQCM/< Left 02/11/2022 DEBRIDEMENT SKIN AND SUBCU, LOWER EXTREMITY (WRVU 1.01) performed by Dillon Betancourt MD at [facility] OR ??? PRO DECOMP FOREARM, 2 COMPART, W/O DEBRIDE Left 01/23/2022 FASCIOTOMY; FOREARM AND\OR WRIST, FLEXOR & EXTENS. COMP (WRVU 10.79) performed by Sigifredo Garcia MD at [facility] OR ??? PRO DECOMPRESS ANT/LAT+POST LEG CMPART Left 01/23/2022 FASCIOTOMY, LOWER LEG, ALL COMPARTMENTS (WRVU 7.82) performed by Sigifredo Garcia MD at [facility] OR ??? PRO DRESSING CHANGE UNDER ANESTHESIA Left 02/11/2022 DRESSING CHANGE (FOR OTHER THAN GALLOWAY) UNDER ANES., UPPER EXTREMITY (WRVU 0.86) performed by Dillon Betancourt MD at [facility] OR ? ? PRO I&D DEEP ABSCESS BURSA/HEMATOMA THIGH/KNEE REGION Left 02/06/2022 INCISION & DRAINAGE ABSCESS OR HEMATOMA, THIGH, KNEE SUPERFICIAL (WRVU 6.78) performed by Jayme Armstrong MD at [facility] MAIN OR ??? PRO INCIS OF HIP/THIGH FASCIA Left 01/23/2022 @FASCIOTOMY,THIGH OR HIP FOR COMPARTMENT SYNDROME (WRVU 12.89) performed by Sigifredo Garcia MD at [facility] MAIN OR ??? PRO NEGATIVE PRESSURE WOUND THERAPY, LESS THAN OR EQUAL TO 50 SQCM Left 02/05/2022 DRESSING CHANGE (VAC ASSISTED) UP TO 50SQ.CM (WRVU 0.55) performed by Orville Hennessy MD at [facility] MAIN OR ??? PRO NEGATIVE PRESSURE WOUND THERAPY, LESS THAN OR EQUAL TO 50 SQCM Left 02/05/2022 DRESSING CHANGE (VAC ASSISTED) UP TO 50SQ.CM (WRVU 0.55) performed by Tom Valdovinos MD at [facility] MAIN OR ??? PRO NEGATIVE PRESSURE WOUND THERAPY, LESS THAN OR EQUAL TO 50 SQCM Left 02/08/2022 DRESSING CHANGE (VAC ASSISTED) UP TO 50SQ.CM (WRVU 0.55) performed by Shar Chatterjee MD at [facility] OR ??? PRO OPEN TREAT MANDIBLE CONDYLE FX, COMPL 04/27/2013 OPEN TREATMENT, COMPLEX MANDIBLE FX., MULTI APPROACH, W/ FIXATION performed by Kishore Neil MD at [facility] MAIN OR ??? PRO REVISE MEDIAN N/CARPAL TUNNEL SURG Left 01/23/2022 MEDIAN NERVE DECOMPRESSION (CARPAL TUNNEL RELEASE) (WRVU 4.97) performed by Sigifredo Garcia MD at [facility] MAIN OR ??? PRO SEC CLSR SURG WOUND/DEHSN EXTENSIVE/COMPLICATED Left 01/26/2022 SECONDARY CLOSURE SURGICAL WOUND OR DEHISCENCE, EXTENSIVE OR COMPLICATED, UPPER EXTREMITY (WRVU 12.04) performed by Sigifredo Garcia MD at [facility] MAIN OR Social History Tobacco Use [...] Physical Exam: Preprocedure Vitals Current as of 02/13/22 0826 BP: 137/93 Pulse: 101 Resp: 17 SpO2: 98 Temp: 37 ??C (98.6 ??F) Height: 182.9 cm (6' 0.01) (02/05/22) Weight: 104.3 kg (229 lb 15 oz) (02/09/22) BMI: 31.18 IBW: 77.6 kg (171 lb 1.9 oz) Last edited 02/13/22 0720 by NW Airway Assessment: Mallampati: II TM distance: >3 FB Neck ROM: full Cardiovascular Assessment: Rhythm: regular Rate: normal system normal Pulmonary Assessment: breath sounds clear to auscultation pulmonary exam normal Dental Assessment: Misc Assessment: Patient is wearing No contact(s). IV access: Peripheral line Last Filed Perioperative Cognitive Screening None Anesthesia Plan: ASA 3 general, with a(n) intravenous induction 31 year old male here for debridement of left lower extremity Med hx sig acute kidney injury, CVVHD, rhabdomyolysis and compartment syndrome S/P Cardiac arrest from fentanyl overdose GA with LMA; possible GETA; PIV Region - Other Informed Consent: Anesthetic plan and risks discussed with patient. Plan discussed with INVENTORY CONTROL SUPERVISOR. Anesthesia Screening documented in this encounter Plan of Treatment Upcoming Encounters Date Type Specialty Care Team Description 06/09/2022 Procedure visit Neurology Summer Wiggins MD [facility] NEUROLOGY DEPT [place], [place] [address] (Wo rk) Scheduled Procedures Name [...] Dose Rate Site dexAMETHasone (Decadron) injection Given 02/13/2022 9:01 AM EDT 4 mg Intravenous, PRN, Starting on 02/13/22 at 0901, Until 02/13/22 at 0958, Anesthesia Intra-op, Routine fentaNYL (pf) (50 mcg/mL) multi-dose Given 02/13/2022 8:51 AM ED T 50 mcg injection Intravenous, PRN, Starting on 02/13/22 at 0850, Until 02/13/22 at 0958, Anesthesia Intra-op, Routine Given 02/13/2022 8:50 AM EDT 50 mcg ketamine (Ketalar) (10 mg/mL) IV bolus Given 02/13/2022 9:01 AM EDT 30 mg injection (Anesthesia) Intravenous, PRN, Starting on 02/13/22 at 0851, Until 02/13/22 at 0958, Anesthesia Intra-op Given 02/13/2022 8:51 AM EDT 20 mg ketorolac (Toradol) (30 mg/mL) injection Given 02/13/2022 9:48 AM EDT 30 mg Intravenous, PRN, Starting on 02/13/22 at 0948, Until 02/13/22 at 0958, Anesthesia Intra-op, Routine lactated ringers infusion New Bag 02/13/2022 8:45 AM EDT Intravenous, CONTINUOUS PRN, Starting on 02/13/22 at 0845, Until 02/13/22 at 0958, Anesthesia Intra-op midazolam (pf) (Versed) (1 mg/mL) multi-dose Given 02/13/2022 8: 48 AM EDT 2 mg injection Intravenous, PRN, Starting on 02/13/22 at 0848, Until 02/13/22 at 0958, Anesthesia Intra-op, Routine ondansetron (pf) (Zofran) (2 mg/mL) inje ction Given 02/13/2022 9:01 AM EDT 4 mg Intravenous, PRN, Starting on 02/13/22 at 0901, Until 02/13/22 at 0958, Anesthesia Intra-op, Routine PHENYLephrine in NS (PF) (JORDIN-SYNEPHRINE) Given 02/13/2022 9:08 AM EDT 160 mcg 0.8 mg/10 mL (80 mcg/mL) multi-dose injection Syrg Intravenous, PRN, Starting on 02/13/22 at 0900, Until 02/13/22 at 0958, Anesthesia Intra-op, Routine Given 02/13/2022 9:00 AM EDT 80 mcg propofoL (Diprivan) 10 mg/mL bolus injection Given 8:51 AM EDT 150 mg (Anesthesia) Intravenous, PRN, Starting on 02/13/22 at 0851, Until 02/13/22 at 0958, Anesthesia Intra-op documented in this encounter Additional [...] prior to 04/25/2022 Please call Infection Prevention [phone] with questions. documented as of this encounter Care Teams Inspector Metal Can Relationship Specialty Start Date End Date None PCP - General 03/10/19 None documented as of this encounter
--- OUTSIDE RECORDS SUMMARY | 2022-04-21 11:24 | XMS_ITS | Encounter Summary ---
:1990 Author Organization [facility] [place] [address] Care Team Providers Name Role Phone None Primary Care Provider Unavailable Reason for Visit Auth/Cert Specialty Diagnoses / Procedures Referred By Contact Refer red To Contact Diagnoses Cardiac arrest intubated med misuse/covid Ximena Robles MD [facility] Procedures ER IPI Admit [facility] Pulmonary Medicine [place] [id number] Referral ID Status Reason Start Date Expiration Date Visits Requ ested Visits Authorized [id number] 1 1 Encounter Details Date Type Department Care Team Description 02/08/2022 Anesthesia Event Main Operating Room Galdino Gray MD [facility] [place] [address] [facility] Anthony Zabala MD [facility] [place] [place] [address] [facility] [place] [address] Anesthesia Record Procedure Summary Procedure Name Responsible Anesthesia Start Anesthesia Stop Anesthesiologist Time Time DEBRIDEMENT SKIN AND Galdino Saeed MD 02/08/22 1515 1657 SUBCU, LOWER EXTREMITY (WRVU 1.01) (Left Leg) Events Date Time Event Comment 02/08/2022 0906 1515 Start 1520 AN Verify 1520 An Start Data 1525 An Induction 1527 An Intubation 1529 Anesthesia Ready 1555 Procedure Start 1645 Extubation/LMA Out 1645 an stop data 1657 Recovery or ICU Handoff Patient care was transferred to the destination unit staff after review of the patient's medica l history, current anesthetic/surgi moe status and plan, according to the Provider Handoff Checklist. 1657 Stop Name Total Propofol 350 mg Propofol INF 452.39 mg PHENYLephrine 80 mcg Ketamine 10 mg/mL 70 mg PHENYLephrine INF 2,620 mcg fentaNYL 250 mcg Dexmedetomidine INF 52.13 mcg Sodium Chloride 0.9% 100 mL Agents Name O2 Air N2O Sevoflurane (et) Isoflurane (et) Blood No blood administrations on file. Lines, Drains, and Airways Type Details Placement Removal Incision 01/23/22; 0829; Left, 01/23/22 0829 by lateral; calf; Emma Otero P, vertical RN Incision 01/23/22; 0841; Left, 01/23/22 0841 by lateral; thigh; Emma Otero P, vertical RN Incision 01/23/22; 0858; Left; 01/23/22 0858 by arm (volar surface); Emma Otero P, vertical RN Incision 04/27/13; jaw (inside 04/27/13 0000 by 02/09/22 1508 by mouth approach. ); Jennifer Conway, Jb Schumacher tthew P, 02/09/22; 1508 RN RN Incision 01/23/22; 0931; Left 01/23/22 0931 by 03/06/22 1 543 by (dorsal surface); arm; Emma Otero, Wendy Bowen R, vertical; 03/06/22; RN RN 1543 CVC 3 Lumen 01/23/22; 1625; 01/23/22 1625 by 02/10/22 1330 b y internal jugular vein, Tung Diehl, Tung Lowery P, left; no longer RN indicated, removed per policy/procedure, site care per policy/procedure, catheter/device intact; 02/10/22; 1330 Incision 01/26/22; 1625; Left; 01/26/22 1625 by 03/06/22 0738 by palm; dressing Toan Robbins [place], Wendy R, xerofrom, abd, aide RN RN 4inch aplied on 01/26 at 1730; 03/06/22; 0738 NPWT 01/26/22; 1712; Left, 01/26/22 1712 by 02/11/22 1021 by anterior; arm; Toan Robbins, Binder, Gaurang Lee, RN 02/11/22; 1021 RN Incision 02/04/22; 1738; Left, 02/04/22 1738 by 03/06/22 1544 by lower; arm; 03/06/22; Rashmi, Wendy Mcclure, Wendy Natarajan R, 1544 RN RN Incision 02/04/22; 1848; Left, 02/04/22 1848 by 02/09/22 0923 by lower; leg; LDA not Rashmi, Annabelle Morejon Eri n L, RN present upon brush machine setter (duplicate); 02/09/22; 0923 Incision 02/04/22; 1849; Left; 02/04/22 1849 by 02/09/22 0922 by thigh; LDA not present Rashmi, Annabelle Morejon Erin L, RN upon newspaper copy editor (duplicate); 02/09/22; 0922 Arterial Line 02/06/22; 0603; 02/06/22 0603 by 02/10/22 1041 b y femoral artery, right; Guevara Cunha J acob P, 20 gauge; femoral ÁNGEL Obrien RN artery, right; no longer indicated, removed per policy, catheter intact; 02/10/22; 1041 Intentionally Retained 02/06/22; 1630; Drs 02/06/22 1630 by 01/29 08/22 1600 by [employer] Emma Otero P, Jb Schumacher tthew P, Other (Comment) (Left RN RN Thigh Wound); Left; TWO QUIK CLOT IN lEFT LATERAL THIGH WOUND; 02/08/22; 1600 (~approx); Per dr gross's op note, priorly removed CVC 3 Lumen 02/07/22; 1300; 02/07/22 1300 by 03/04/22 1400 b y internal jugular vein, Natalya Amador RN Reill y, Geoffrey Shaw, right; termite renewal inspector/apheresis catheter (re-wired from previous H.D. catheter, Trialysis catheter); Ultrasound Guidance; other (see comments) (13 persian and 15 cm); Rogers Solano COUNTER HAND; 03/04/22; 1400 (removed today by MD) Supraglottic Mask Ventilation: Not 02/08/22 1532 by 02/08/22 1645 by Attempted (0); LMA Chani Mckeon [place] , Type: iGel; LMA Size: Valeria Simental RNA 4; Inserted by: Chani Mckeon CRNA documented in this encounter Social History [...] encounter OR Notes Anesthesia Postprocedure Evaluation - Galdino Saeed MD - 02/08/2022 5:34 PM EDT Department of Anesthesiology Post-procedure Note Patient: Eric Packer Procedure Summary Date: 02/08/22 Room / Location: [address] MAIN OR Anesthesia Start: 5 Anesthesia Stop: 1656 Procedures: DEBRIDEMENT SKIN AND SUBCU, LOWER EXTREMITY (WRVU 1.01) (Left Leg) EACH ADDITIONAL 20 SQ CM, OR PART THEREOF (WRVU 1.8) DRESSING CHANGE (VAC ASSISTED) UP TO 50SQ.CM (WRVU 0.55) (Left Arm) Diagnosis: (LLE fasciotomies) Surgeons: Shar Gross MD Responsible Provider: Galdino Saeed MD Anesthesia Type: general ASA Status: 3 All Anesthesia Providers: Anesthesiologist: Galdino Saeed MD CABIN AGENT: Chani Mckeon CRNA Vitals Value Taken Time BP Temp 36.7 ??C (98.1 ??F) 02/08/22 1656 Pulse 116 02/08/22 1732 Resp 24 02/08/22 1732 SpO2 99 % 02/08/22 1732 Pain Level 10 02/08/22 1656 Vitals shown include unvalidated device data. Patient Location: ICU Level of Consciousness: Conscious but Sleepy Pain Management: PONV: None Cardiovascular Status: At Baseline Respiratory Status: Stable Respiratory Status Postoperative Fluid Status: Intravascular EUvolemia Possible Anesthetic Complications: NONE apparent at time of evaluation Final Primary Anesthesia Type: General (The anesthetic type performed was the same as planned.) Comments: Care to ICU team Anesthesia Preprocedure Evaluation - Anthony Zabala MD - 02/08/2022 9:05 AM EDT Pre-Anesthesia Evaluation for: Eric Packer a 31 y.o. male. Procedure(s): DEBRIDEMENT SKIN AND SUBCU, LOWER EXTREMITY (WRVU 1.01) DEBRIDEMENT SKIN AND SUBCU, UPPER EXTREMITY (WRVU 1.01) MODIFIER WOUND VAC Patient Active Problem List Diagnosis Date Noted ??? Transaminitis 01/24/2022 ??? Aspiration pneumonia 01/24/2022 [...] (WRVU 4.1) performed by Tom Valdovinos MD [facility] MAIN OR ? ? PRO DEBRIDEMENT BONE MUSCLE &/FASCIA 20 SQ CM/< Left 01/31/2022 DEBRIDEMENT SKIN, SUBCU, MUSCLE, BONE, LOWER EXTREMITY (WRVU 4.1) performed by Jose Branch MD at [facility] MAIN OR ? ? PRO DEBRIDEMENT BONE MUSCLE &/FASCIA 20 SQ CM/< Left 01/31/2022 DEBRIDEMENT SKIN, SUBCU, MUSCLE, BONE UPPER EXTREMITY (WRVU 4.1) performed by Jose Branch MDat [facility] MAIN OR ? ? PRO DEBRIDEMENT BONE MUSCLE &/FASCIA 20 SQ CM/< Left 02/02/2022 DEBRIDEMENT SKIN, SUBCU, MUSCLE, BONE UPPER EXTREMITY (WRVU 4.1) performed by Hina Avitia MD at [facility] MAIN OR ? ? PRO DEBRIDEMENT BONE MUSCLE &/FASCIA 20 SQ CM/< Left 02/02/2022 DEBRIDEMENT SKIN, SUBCU, MUSCLE, BONE, LOWER EXTREMITY (WRVU 4.1) performed by Hina Avitia MD at [facility] MAIN OR ? ? PRO DEBRIDEMENT MUSCLE AND FASCIA 20 SQ CM/< Left 01/26/2022 DEBRIDEMENT SKIN, SUBCU, MUSCLE, LOWER EXTREMITY (WRVU 2.7) performed by Sigifredo Garcia MD at [facility] MAIN OR ? ? PRO DEBRIDEMENT MUSCLE AND FASCIA 20 SQ CM/< Left 01/26/2022 DEBRIDEMENT SKIN, SUBCU, MUSCLE, UPPER EXTREMITY (WRVU 2.7) performed by Sigifredo Garcia MD at [facility] MAIN OR ? ? PRO DEBRIDEMENT MUSCLE AND FASCIA 20 SQ CM/< Left 02/05/2022 DEBRIDEMENT SKIN, SUBCU, MUSCLE, LOWER EXTREMITY (WRVU 2.7) performed by Tom Valdovinos MD at [facility] MAIN OR ? ? PRO DEBRIDEMENT MUSCLE AND FASCIA 20 SQ CM/< Left 02/04/2022 DEBRIDEMENT SKIN, SUBCU, MUSCLE, LOWER EXTREMITY (WRVU 2.7) performed by Sigifredo Garcia MD at [facility] MAIN OR ? ? PRO DEBRIDEMENT SUBCUTANEOUS TISSUE 20 SQCM/< Left 02/04/2022 DEBRIDEMENT SKIN AND SUBCU, UPPER EXTREMITY (WRVU 1.01) performed by Sigifredo Garcia MD at [facility] PAIGE ??? PRO DECOMP FOREARM, 2 COMPART, W/O DEBRIDE Left 01/23/2022 FASCIOTOMY; FOREARM AND\OR WRIST, FLEXOR & EXTENS. COMP (WRVU 10.79) performed by Sigifredo Garcia MD at [facility] OR ??? PRO DECOMPRESS ANT/LAT+POST LEG CMPART Left 01/23/2022 FASCIOTOMY, LOWER LEG, ALL COMPARTMENTS (WRVU 7.82) performed by Sigifredo Garcia MD at [facility] OR ? ? PRO I&D DEEP ABSCESS BURSA/HEMATOMA THIGH/KNEE REGION Left 02/06/2022 INCISION & DRAINAGE ABSCESS OR HEMATOMA, THIGH, KNEE SUPERFICIAL (WRVU 6.78) performed by Jayme Armstrong MD at [facility] OR ??? PRO INCIS OF HIP/THIGH FASCIA Left 01/23/2022 @FASCIOTOMY,THIGH OR HIP FOR COMPARTMENT SYNDROME (WRVU 12.89) performed by Sigifredo Garcia MD at [facility] MAIN OR ??? PRO NEGATIVE PRESSURE WOUND THERAPY, LESS THAN OR EQUAL TO 50 SQCM Left 02/05/2022 DRESSING CHANGE (VAC ASSISTED) UP TO 50SQ.CM (WRVU 0.55) performed by Orville Hennessy MD at [facility] OR ??? PRO NEGATIVE PRESSURE WOUND THERAPY, LESS THAN OR EQUAL TO 50 SQCM Left 02/05/2022 DRESSING CHANGE (VAC ASSISTED) UP TO 50SQ.CM (WRVU 0.55) performed by Tom Valdovinos MD at [facility] MAIN OR ??? PRO OPEN TREAT MANDIBLE CONDYLE FX, COMPL 04/27/2013 OPEN TREATMENT, COMPLEX MANDIBLE FX., MULTI APPROACH, W/ FIXATION performed by Kishore Neil MD at [facility] OR ??? PRO REVISE MEDIAN N/CARPAL TUNNEL SURG Left 01/23/2022 MEDIAN NERVE DECOMPRESSION (CARPAL TUNNEL RELEASE) (WRVU 4.97) performed by Sigifredo Garcia MD at [facility] MAIN OR ??? PRO SEC CLSR SURG WOUND/DEHSN EXTENSIVE/COMPLICATED Left 01/26/2022 SECONDARY CLOSURE SURGICAL WOUND OR DEHISCENCE, EXTENSIVE OR COMPLICATED, UPPER EXTREMITY (WRVU 12.04) performed by Sigifredo Garcia MD at [facility] MAIN OR Social History Tobacco [...] Physical Exam: Preprocedure Vitals Current as of 02/05/22 0840 BP: 115/70 Pulse: 112 Resp: 18 SpO2: 100 Temp: 36.9 ??C (98.4 ??F) Height: 182.9 cm (6' 0.01) (02/05/22) Weight: 116.8 kg (257 lb 8 oz) (02/05/22) BMI: 34.91 IBW: 77.6 kg (171 lb 1.9 oz) Last edited 02/05/22 0800 by [employer] Currently displaying vitals information from multiple entries within 180 minutes of most recent vitals. Airway Assessment: Mallampati: II TM distance: >3 FB Neck ROM: full Cardiovascular Assessment: Rhythm: regular Rate: normal system normal Pulmonary Assessment: unlabored breathing pulmonary exam normal Dental Assessment: Misc Assessment: Patient is wearing No contact(s). IV access: Peripheral line Last Filed Perioperative Cognitive Screening None Anesthesia Plan: ASA 3 general, with a(n) intravenous induction 31yo male w/ multiple fasciotomies for wound vac changes Serial consent Region - Other Informed Consent: Anesthetic plan and risks discussed with patient. Plan discussed with CABIN AGENT and attending. Anesthesia Screening documented in this encounter Plan of Treatment Upcoming Encounters Date Type Specialty Care Team Description 06/09/2022 Procedure visit Neurology Summer Wiggins MD [facility] NEUROLOGY DEPT [place], [place] [address] (Wo rk) Scheduled Procedures Name [...] Action Date Dose Rate Site dexmedeTOMIDine (Precedex) New Bag 02/08/2022 3:30 0.4 mcg/kg/hr 1 1.17 mL/hr (4 mcg/mL) in sodium PM EDT chloride 0.9% 50 mL infusion Intravenous, CONTINUOUS PRN, Starting on Tue02/08/22 at 1530, Until Tue02/08/22 at 1657, Anesthesia Intra-op fentaNYL (pf) (50 mcg/mL) multi-dose Given 02/08/2022 4:28 PM ED T 50 mcg injection Intravenous, PRN, Starting on Tue02/08/22 at 1541, Until Tue02/08/22 at 1657, Anesthesia Intra-op, Routine Given 02/08/2022 4:17 PM EDT 100 mcg Given 02/08/2022 3:41 PM EDT 100 mcg ketamine (Ketalar) (10 mg/mL) IV bolus Given 02/08/2022 3:41 PM EDT 20 mg injection (Anesthesia) Intravenous, PRN, Starting on Tue02/08/22 at 1525, Until Tue02/08/22 at 1657, Anesthesia Intra-op Given 02/08/2022 3:25 PM EDT 50 mg PHENYLephrine (Rustam-Synephrine) Rate/Dose Change 02/08/2022 4:28 20 mcg/min 15 mL/hr (80 mcg/mL) in sodium chloride PM EDT 0.9% 250 mL infusion Intravenous, CONTINUOUS PRN, Starting on Tue02/08/22 at 1530, Until Tue02/08/22 at 1657, Anesthesia Intra-op, Routine Rate/Dose Change 02/08/2022 4:15 PM EDT 40 mcg/min 30 mL/hr Rate/Dose Change 02/08/2022 3:53 PM EDT 60 mcg/min 45 mL/hr PHENYLephrine in NS (PF) (RUSTAM-SYNEPHRINE) 0.8 Given 3:48 PM EDT 80 mcg mg/10 mL (80 mcg/mL) multi-dose injection Syrg Intravenous, PRN, Starting on Tue02/08/22 at 1548, Until Tue02/08/22 at 1657, Anesthesia Intra-op, Routine propofoL (Diprivan) (10 Rate/Dose 02/08/2022 3:56 50 mcg/kg/min 33.5 1 mg/mL) infusion Change PM EDT mL/hr Intravenous, CONTINUOUS PRN, Starting on Tue02/08/22 at 1530, Until Tue02/08/22 at 1657, Anesthesia Intra-op, Routine Rate/Dose Change 02/08/2022 3:43 PM EDT 100 mcg/kg/min 67.02 mL/hr New Bag 02/08/2022 3:30 PM EDT 50 mcg/kg/min 33.51 mL/hr propofoL (Diprivan) 10 mg/mL bolus injection Given 4:17 PM EDT 50 mg (Anesthesia) Intravenous, PRN, Starting on Tue02/08/22 at 1525, Until Tue02/08/22 at 1657, Anesthesia Intra-op Given 02/08/2022 3:43 PM EDT 50 mg Given 02/08/2022 3:26 PM EDT 50 mg sodium chloride 0.9% infusion New Bag 02/08/2022 3:15 PM EDT Intravenous, CONTINUOUS PRN, Starting on Tue02/08/22 at 1515, Until Tue02/08/22 at 1657, Anesthesia Intra-op documented in this encounter Additional [...] prior to 04/25/2022 Please call Infection Prevention [phone] with questions. documented as of this encounter Care Teams Jury Consultant Relationship Specialty Start Date End Date None PCP - General 03/10/19 None documented as of this encounter
--- OUTSIDE RECORDS SUMMARY | 2022-04-21 11:24 | XMS_ITS | Encounter Summary ---
:1990 Author Organization [place] [phone] Care Team Providers Name Role Phone None Primary Care Provider Unavailable Reason for Visit Auth/Cert Specialty Diagnoses / Procedures Referred By Contact Refer red To Contact Diagnoses Cardiac arrest intubated med misuse/covid Ximena Robles MD [facility] Procedures ER IPI Admit [facility] [place] [address] Referral ID Status Reason Start Date Expiration Date Visits Requ ested Visits Authorized [id number] 1 1 Encounter Details Date Type Department Care Team Description 02/09/2022 Anesthesia Event Main Operating Room Lei Cantu Hitchcock [facility] Lucretia esteban [place] [address] [place] [address] [phone] (Wo rk) Anesthesia Record Procedure Summary Procedure Name Responsible Anesthesia Start Anesthesia Stop Anesthesiologist Time Time DEBRIDEMENT SKIN AND Lei Worley MD 02/09/22 1530 07/22 1654 SUBCU, LOWER EXTREMITY (WRVU 1.01) (Left Leg) Events Date Time Event Comment 02/09/2022 0721 1530 Start 1537 AN Verify 1538 An Start Data 1542 An Induction 1544 An Intubation 1546 Anesthesia Ready 1654 an stop data 1654 Recovery or ICU Handoff Patient care was transferred to the destination unit staff after review of the patient's medica l history, current anesthetic/surgi moe status and plan, according to the Provider Handoff Checklist. 1654 Stop Name Total fentaNYL 100 mcg Propofol 200 mg Ketamine 10 mg/mL 50 mg Piperacillin-Tazobactam 3.375 g ondansetron (pf) (Zofran) (2 mg/mL) injection 4 mg 8 m g Lactated Ringers 600 mL Agents Name O2 Air N2O Isoflurane (et) Blood No blood administrations on [...] anek, Lisa R, RN vertical; 03/06/22; 1543 CVC 3 Lumen 01/23/22; 1625; internal 01/23/22 1625 by [place] , 02/10/22 1330 by jugular vein, left; ÁNGEL Thibodeaux J acob P, RN longer indicated, removed per policy/procedure, site care per policy/procedure, catheter/device intact; 02/10/22; 1330 Incision 01/26/22; 1625; Left; 01/26/22 1625 by 03/06/22 0738 by palm; dressing xerofrom, Toan Robbins RN L Wendy ba RN abd, aide 4inch aplied on 01/26 at 1730; 03/06/22; 0738 NPWT 01/26/22; 1712; Left, 01/26/22 1712 by 02/11/22 1021 by anterior; arm; 02/11/22; Toan Robbins RN B lexi, Gaurang K, RN 1021 Incision 02/04/22; 1738; Left, 02/04/22 1738 by 03/06/22 1544 by lower; arm; 03/06/22; Wendy Caraballo RN [place] nek, Wendy Espinoza, RN 1544 Arterial Line 02/06/22; 0603; femoral 02/06/22 0603 by 2 1041 by artery, right; 20 gauge; Camille Cunha R N Benson, Jacob P, RN femoral artery, right; no longer indicated, removed per policy, catheter intact; 02/10/22; 1041 CVC 3 Lumen 02/07/22; 1300; internal 02/07/22 1300 by Valeriyham , 03/04/22 1400 by jugular vein, right; ÁNGEL Kam, Jere Shaw RN dialysis/apheresis catheter (re-wired from previous H.D. catheter, Trialysis catheter); Ultrasound Guidance; other (see comments) (13 divehi and 15 cm); Rogers Solano WIRE STRETCHER; 03/04/22; 1400 (removed today by ) Rectal Tube 02/09/22; 0149; rectal 02/09/22 0149 by Casey, 02/22/22 2300 by tube with balloon ÁNGEL Luna Sarah T, RN (specify mL) (40ml); 02/22/22; 2300 Supraglottic Mask Ventilation: Not 02/09/22 1544 by Mary Jane, 0 02/09/22 1700 by Andi, Attempted (0); LMA Type: MARIA ELENA Duarte , KATERYNA iGel; LMA Size: 5; Inserted by: Mary Jane NPWT 02/09/22; 1636; Left, 02/09/22 1636 by Argiro, 0 02/11/22 1022 by anterior; thigh; wound ÁNGEL Harrison, Ren Lee RN vac; 02/11/22; 1022 documented in this encounter Social History Tobacco [...] encounter OR Notes Anesthesia Postprocedure Evaluation - Lei Worley MD - 02/09/2022 5:46 PM EDT Department of Anesthesiology Post-procedure Note Patient: Eric Packer Procedure Summary Date: 02/09/22 Room / Location: [address] MAIN OR Anesthesia Start: 153 Anesthesia Stop: 1653 Procedures: DEBRIDEMENT SKIN AND SUBCU, LOWER EXTREMITY (WRVU 1.01) (Left Leg) MODIFIER WOUND VAC (Left ) Diagnosis: (LLE fasciotomies) Surgeons: Shar Chatterjee MD Responsible Provider: Lei Worley MD Anesthesia Type: general ASA Status: 3 All Anesthesia Providers: Anesthesiologist: Lei Worley MD FARM IMPLEMENT ENGINE MECHANIC: Miguel Hinton CRNA Vitals Value Taken Time BP Temp Pulse 117 02/09/22 1745 Resp 15 02/09/22 1745 SpO2 96 % 02/09/22 1745 Pain Level 10 02/09/22 1730 Vitals shown include unvalidated device data. Patient Location: ICU Level of Consciousness: Conscious but Sleepy Pain Management: Satisfactory Analgesia PONV: None Cardiovascular Status: Hemodynamically Stable Respiratory Status: Stable Respiratory Status Postoperative Fluid Status: Intravascular EUvolemia Possible Anesthetic Complications: NONE apparent at time of evaluation Final Primary Anesthesia Type: General (The anesthetic type performed was the same as planned.) Comments: Anesthesia Preprocedure Evaluation - Lei Worley MD - 02/09/2022 6:45 AM EDT Pre-Anesthesia Evaluation for: Eric Packer a 31 y.o. male. Procedure(s): DEBRIDEMENT SKIN AND SUBCU, LOWER EXTREMITY (WRVU 1.01) Patient Active Problem List Diagnosis Date Noted [...] Arteriogram Lower Extremity 02/06/2022 Dagoberto Vivas MD [facility] INTERVENTIONL RAD ? ? PRO DEBRIDEMENT BONE MUSCLE &/FASCIA 20 SQ CM/< Left 01/29/2022 DEBRIDEMENT SKIN, SUBCU, MUSCLE, BONE, LOWER EXTREMITY (WRVU 4.1) performed by Tom Valdovinos MD [facility] MAIN OR ? ? PRO DEBRIDEMENT BONE MUSCLE &/FASCIA 20 SQ CM/< Left 01/31/2022 DEBRIDEMENT SKIN, SUBCU, MUSCLE, BONE, LOWER EXTREMITY (WRVU 4.1) performed by Jose Branch MD at [facility] MAIN OR ? ? PRO DEBRIDEMENT BONE MUSCLE &/FASCIA 20 SQ CM/< Left 01/31/2022 DEBRIDEMENT SKIN, SUBCU, MUSCLE, BONE UPPER EXTREMITY (WRVU 4.1) performed by Jose Branch MDat [facility] MAIN OR ? ? PRO DEBRIDEMENT BONE MUSCLE &/FASCIA 20 SQ CM/< Left 02/02/2022 DEBRIDEMENT SKIN, SUBCU, MUSCLE, BONE UPPER EXTREMITY (WRVU 4.1) performed by Hina Avitia MD at [facility] OR ? ? PRO DEBRIDEMENT BONE MUSCLE &/FASCIA 20 SQ CM/< Left 02/02/2022 DEBRIDEMENT SKIN, SUBCU, MUSCLE, BONE, LOWER EXTREMITY (WRVU 4.1) performed by Hina Avitia MD at [facility] OR ? ? PRO DEBRIDEMENT MUSCLE AND FASCIA 20 SQ CM/< Left 01/26/2022 DEBRIDEMENT SKIN, SUBCU, MUSCLE, LOWER EXTREMITY (WRVU 2.7) performed by Sigifredo Garcia MD at [facility] OR ? ? PRO DEBRIDEMENT MUSCLE AND FASCIA 20 SQ CM/< Left 01/26/2022 DEBRIDEMENT SKIN, SUBCU, MUSCLE, UPPER EXTREMITY (WRVU 2.7) performed by Sigifredo Garcia MD at [facility] OR ? ? PRO DEBRIDEMENT MUSCLE AND FASCIA 20 SQ CM/< Left 02/05/2022 DEBRIDEMENT SKIN, SUBCU, MUSCLE, LOWER EXTREMITY (WRVU 2.7) performed by Tom Valdovinos MD at [facility] OR ? ? PRO DEBRIDEMENT MUSCLE AND FASCIA 20 SQ CM/< Left 02/04/2022 DEBRIDEMENT SKIN, SUBCU, MUSCLE, LOWER EXTREMITY (WRVU 2.7) performed by Sigifredo Garcia MD at [facility] OR ? ? PRO DEBRIDEMENT SUBCUTANEOUS TISSUE 20 SQCM/< Left 02/04/2022 DEBRIDEMENT SKIN AND SUBCU, UPPER EXTREMITY (WRVU 1.01) [facility] ??? PRO DECOMP FOREARM, 2 COMPART, W/O DEBRIDE Left 01/23/2022 FASCIOTOMY; FOREARM AND\OR WRIST, FLEXOR & EXTENS. COMP (WRVU 10.79) performed by Sigifredo Garcia MD at [facility] OR ??? PRO DECOMPRESS ANT/LAT+POST LEG CMPART Left 01/23/2022 FASCIOTOMY, LOWER LEG, ALL COMPARTMENTS (WRVU 7.82) performed by Sigifredo Garcia MD at [facility] OR ? ? PRO I&D DEEP ABSCESS BURSA/HEMATOMA THIGH/KNEE REGION Left 02/06/2022 INCISION & DRAINAGE ABSCESS OR HEMATOMA, THIGH, KNEE SUPERFICIAL (WRVU 6.78) performed by Jayme Armstrong MD at [facility] OR ??? PRO INCIS OF HIP/THIGH FASCIA Left 01/23/2022 @FASCIOTOMY,THIGH OR HIP FOR COMPARTMENT SYNDROME (WRVU 12.89) performed by Sigifredo Garcia MD at [facility] MAIN OR ??? PRO NEGATIVE PRESSURE WOUND THERAPY, LESS THAN OR EQUAL TO 50 SQCM Left 02/05/2022 DRESSING CHANGE (VAC ASSISTED) UP TO 50SQ.CM (WRVU 0.55) performed by Orville Hennessy MD at [facility] MAIN OR ??? PRO NEGATIVE PRESSURE WOUND THERAPY, LESS THAN OR EQUAL TO 50 SQCM Left 02/05/2022 DRESSING CHANGE (VAC ASSISTED) UP TO 50SQ.CM (WRVU 0.55) performed by Tom Valdovinos MD at [facility] MAIN OR ??? PRO OPEN TREAT MANDIBLE CONDYLE FX, COMPL 04/27/2013 OPEN TREATMENT, COMPLEX MANDIBLE FX., MULTI APPROACH, W/ FIXATION performed by Kishore Neil MD at [facility] MAIN OR ??? PRO REVISE MEDIAN N/CARPAL TUNNEL SURG Left 01/23/2022 MEDIAN NERVE DECOMPRESSION (CARPAL TUNNEL RELEASE) (WRVU 4.97) performed by Sigifredo Garcia MD at [facility] MAIN OR ??? PRO SEC CLSR SURG WOUND/DEHSN EXTENSIVE/COMPLICATED Left 01/26/2022 SECONDARY CLOSURE SURGICAL WOUND OR DEHISCENCE, EXTENSIVE OR COMPLICATED, UPPER EXTREMITY (WRVU 12.04) performed by Sigifredo Garcia MD at [facility] MAIN OR Social History Tobacco [...] Physical Exam: Preprocedure Vitals Current as of 02/09/22 0645 BP: Pulse: 123 Resp: 24 SpO2: 97 Temp: 37.4 ??C (99.3 ??F) Height: 182.9 cm (6' 0.01) (02/05/22) Weight: 111.7 kg (246 lb 4.1 oz) (02/08/22) BMI: 33.39 IBW: 77.6 kg (171 lb 1.9 oz) Last edited 02/09/22 0600 by Currently displaying vitals information from multiple entries within 180 minutes of most recent vitals. Airway Assessment: Mallampati: (Unable to Assess) Cardiovascular Assessment: Rhythm: regular Rate: abnormal Pulmonary Assessment: pulmonary exam normal Dental Assessment: Misc Assessment: Last Filed Perioperative Cognitive Screening None Anesthesia Plan: ASA 3 general, with a(n) intravenous induction 30 r old M pmhx ALTHEA/CVVHD, rhabdomyolysis 2/2 compartment syndrome, cardiac arrest, presenting for lower extremity I&D anest x multiple in past Labs reviewed, anemia and hyponatremia noted Imaging reviewed Currently in ICU after bleeding from fasciotomy site, currently tachycardic but otherwise HDS on room air. Planning GA LMA. Serial consent in chart. Region - Other Informed Consent: Anesthetic plan and risks discussed with patient. Plan discussed with FARM IMPLEMENT ENGINE MECHANIC. Anesthesia Screening documented in this encounter Plan of Treatment Upcoming Encounters Date Type Specialty Care Team Description 06/09/2022 Procedure visit Neurology Summer Wiggins MD [facility] NEUROLOGY DEPT [place], [place] [address] (Wo rk) Scheduled Procedures Name [...] MAR Action Action Date Dose Rate Site fentaNYL (pf) (50 mcg/mL) Given 02/09/2022 4:40 PM EDT 50 mcg multi-dose injection Intravenous, PRN, Starting on Tue02/09/22 at 1622, Until Tue02/09/22 at 1654, Anesthesia Intra-op, Routine Given 02/09/2022 4:22 PM EDT 50 mcg ketamine (Ketalar) (10 mg/mL) IV bolus Given 02/09/2022 3:42 PM EDT 50 mg injection (Anesthesia) Intravenous, PRN, Starting on Tue02/09/22 at 1542, Until Tue02/09/22 at 1654, Anesthesia Intra-op lactated ringers infusion New Bag 02/09/2022 3:30 PM EDT Intravenous, CONTINUOUS PRN, Starting on Tue02/09/22 at 1530, Until Tue02/09/22 at 1654, Anesthesia Intra-op ondansetron (pf) (Zofran) (2 mg/mL) injection Given 10:03 AM EDT 4 mg 4 mg 4 mg, Intravenous, EVERY 30 MIN PRN, 2 doses, Starting on 02/01/22 at 1421, Until Meredith 02/11/22 at 1003, Nausea, May repeat dose once in 30 minutes if no relief from previous dose. If multiple antiemetics are ordered, use ondansetron first, prochlorperazine second. Per WHEEL PRESS OPERATOR order. Given 02/09/2022 4:01 PM EDT 8 mg piperacillin-tazobactam (Zosyn) injectio n Given 02/09/2022 3:46 PM EDT 3.375 g Intravenous, PRN, Starting on Tue02/09/22 at 1546, Until Tue02/09/22 at 1654, Anesthesia Intra-op, Routine propofoL (Diprivan) 10 mg/mL bolus injection Given 07/2022 3:42 PM EDT 200 mg (Anesthesia) Intravenous, PRN, Starting on Tue02/09/22 at 1542, Until Tue02/09/22 at 1654, Anesthesia Intra-op documented in this encounter Additional [...] prior to 04/25/2022 Please call Infection Prevention [phone] with questions. documented as of this encounter Care Teams Dural Mechanic Relationship Specialty Start Date End Date None PCP - General 03/10/19 None documented as of this encounter
--- OUTSIDE RECORDS SUMMARY | 2022-04-21 11:24 | XMS_ITS | Encounter Summary ---
:1990 Author Organization [facility] [place] [address] Care Team Providers Name Role Phone None Primary Care Provider Unavailable Reason for Visit Auth/Cert Specialty Diagnoses / Procedures Referred By Contact Refer red To Contact Diagnoses Cardiac arrest intubated med misuse/covid Tex Robles MD [facility] Procedures ER IPI Admit [facility] [place] [address] Referral ID Status Reason Start Date Expiration Date Visits Requ ested Visits Authorized [id number] 1 1 Encounter Details Date Type Department Care Team Description 02/11/2022 Surgery Main Operating Room Guanaco Betancourt MD DEBRIDEMENT SKIN AND [facility] ([facility] 1.01) [facility] GENERAL [place] [id number] [phone] Social History Tobacco Use Types Packs/Day Years [...] Sign Reading Time Taken Comments Blood Pressure 136/97 02/11/2022 11:45 AM EDT Pulse 107 02/11/2022 11:45 AM EDT Temperature 36.7 ??C (98.1 ??F) 02/11/2022 11:30 AM EDT Respiratory Rate 14 02/11/2022 11:45 AM EDT Oxygen Saturation 94% 02/11/2022 11:45 AM EDT Inhaled Oxygen Concentration - - [...] ??? Mandible fracture HPI: (Per Cristina Hillman, INSULATION WORKER on 01/23/2022) History provided by patient's father and chart review. The patient was found by his father at 5pm this evening after an unknown period of down-time. The patient was able to speak and reported left armpain; he also reported taking fentanyl. His father called 911. On EMS arrival he was given narcan without change to neuro exam. The transport events to [facility] are not clear, but the patient [...] was started on levophed and transferred to [facility] for ongoing management. ?? Urine drug screen: +barbiturates, +oxycodone, +opiates Tylenol, salicylates, and ethanol were negative ?? Notable labs: WBC 27.6 Hgb 21.5 Plts 383 ?? K 7.8-> 5.4 CO2 11 BUN 32 Cr 4.37 AG 35 Lactate >10 ?? AST 3588 ALT 990 ?? Trop-I >9000 ?? SARS-CoV-2 RNA detected ? En-route to [facility] he was given boluses of ketamine for [...] escalated. On 02/10 [facility] and transferred back to the floor [...] Allowed for activity as tolerated. Weaning dilaudid RIGGER THIRD. Seen by PT/OT with rec for rehab. 03/17: Dressings changed at bedside. Continue RIGGER THIRD weaning. Low phos, high protein, high calorie diet.IV vanc and meropenem started (-03/19) and PO vanc (- 03/26). Emesis x1. 03/18: RIGGER THIRD dc'd. BIT consulted for suboxone. Bedside dressing change. 03/19: To be dc'd to [facility] with bed availability. High UOP w/ suspected [...] who have questions please contact the health care associate that requested your imaging first. Head wo Contrast (Generic) (Exam End: 01/23/2022 3:58 AM) Impression Globi pallidi infarcts. Mild cerebral edema. Thank you for letting us participate in the care of this patient. If you are a health care provider and have any questions regarding this report, please contact the number below. For patients who have questions please contact the health care associate that requested your imaging first. Abdomen 1 view (Generic) (Exam End: 01/23/2022 [...] who have questions please contact the health care associate that requested your imaging first. Lower Extremity wo Contrast Left (Generic) (Exam [...] who have questions please contact the health care associate that requested your imaging first. Chest wo Contrast (Generic) (Exam End: 01/23/2022 [...] who have questions please contact the health care associate that requested your imaging first. Upper Extremity [...] who have questions please contact the health care associate that requested your imaging first. Forearm Left [...] who have questions please contact the health care associate that requested your imaging first. Chest One [...] who have questions please contact the health care associate that requested your imaging first. Femur 2 views Left (Generic) (Exam End: 01/23/2022 2:04 PM) Impression No significant osseous finding. Thank you for letting us participate in the care of this patient. If you are a health care provider and have any questions regarding this report, please contact the number below. For patients who have questions please contact the health care associate that requested your imaging first. Tibia Fibula Left (Generic) (Exam End: 01/23/2022 2:04 PM) Impression No bony abnormality seen. Thank you for letting us participate in the care of this patient. If you are a health care provider and have any questions regarding this report, please contact the number below. For patients who have questions please contact the health care associate that requested your imaging first. Chest One View (Exam End: 01/23/2022 4:54 [...] who have questions please contact the health care associate that requested your imaging first. Brain wo Contrast (Exam End: 01/24/2022 4:27 PM) Impression Acute globi pallidi infarctions. Scattered punctate infarctions in the cerebellar hemispheres. Thank you for letting us participate in the care of this patient. If you are a health care provider and have any questions regarding this report, please contact the number below. For patients who have questions please contact the health care associate that requested your imaging first. Angiogram [place] (Exam End: 01/24/2022 11:32 PM) Impression Normal appearance of the large and medium size arteries of the head and neck Thank you for letting us participate in the care of this patient. If you are a health care provider and have any questions regarding this report, please contact the number below. For patients who have questions please contact the health care associate that requested your imaging first. Angiogram Carotids [...] who have questions please contact the health care associate that requested your imaging first. Chest Abdomen [...] who have questions please contact the health care associate that requested your imaging first. Arteriogram Lower Extremity (Exam End: 02/06/2022 3:34 [...] 2. Flat for 2 hours, following Right INFORMATION SERVICES MANAGER Mynx closure deployment 3. Monitor for Right [...] a permanent image was stored. A 5 Kosovan sheath was placed. Vessel accessed: Right common femoral artery Access technique: Micropuncture set with 21 gauge needle Left pelvic angiography The left pelvic arterial system was catheterized using a 150 cm 0.035 3J guidewire, 5 Kosovan Berenstein catheter, 3 Kosovan renegade STC microcatheter and wire. Vessel catheterized: [...] who have questions please contact the health care associate that requested your imaging first. Chest One View (Exam End: 02/07/2022 1:15 PM) Impression No appreciable interval change. Unchanged position of the central venous catheters, as above. Thank you for letting us participate in the care of this patient. If you are a health care provider and have any questions regarding this report, please contact the number below. For patients who have questions please contact the health care associate that requested your imaging first. Brain wo Contrast (Exam End: 02/11/2022 5:13 [...] who have questions please contact the health care associate that requested your imaging first. Abdomen 1 view (Generic) (Exam End: 02/13/2022 8:10 AM) Impression No obstruction. No perforation. Thank you for letting us participate in the care of this patient. If you are a health care provider and have any questions regarding this report, please contact the number below. For patients who have questions please contact the health care associate that requested your imaging first. Abdomen & Pelvis w Contrast (Exam End: [...] who have questions please contact the health care associate that requested your imaging first. Electronically signed by: Zander Hayes [facility] ([phone]), at 02/13/2022 6:[address] Femur w [...] who have questions please contact the health care associate that requested your imaging first. PICC Placement [...] who have questions please contact the health care associate that requested your imaging first. Discharge Exam: Last value Range last 12 hrs Temperature Temp: 36.4 ??C (97.5 ??F) Temp: -- Heart Rate Heart Rate: (!) 118 Heart Rate: [118] Blood Pressure BP: 154/87 BP: (154)/(87) Respiratory Rate Resp: 16 Resp: [16] SpO2 SpO2: 97 % SpO2: [97 %] I/Os: I/O last 3 completed shifts: In: 5040 [P.O.:5040] Out: 21721 [Urine:55192] I/O this shift: In: - Out: 500 [Urine:500] Gen: AOx3, NAD, resting comfortably CVS: Regular rate and rhythm Resp: breathing comfortably on RA Abd: soft, non-tender, nondistended Ext:: LLE wound with dressing in place,??non-tender,??L forearm wound under dressing, non tender.??Incision: dressing c/d/i. No evidence of hematoma/seroma/infection Discharge Plans: Discharge to: Rehab Name of facility: [facility] Contact information: Dr. Rosa, VNA: No Discharge Conditions/Prognosis: Stable Discharge Medications: The following medications have been prescribed for you. If you notice any adverse reactions to your medications, please contact your primary care physician immediately or go to the nearest Emergency Department. In addition to these medications, you are being prescribed Suboxone 8mg BID. Please continue this medication at [facility]. Your Medications New Medications Dose Details [...] Date: 10/22/22 Question Response Notes Preferred location? [facility] Clinics [106] Indication for study/signs & symptoms [...] 1. You will have follow-up appointments at [facility] as indicated in the ???Future Appointments and [...] on the next business day. Please call [phone] if you do not hear from us by that time, as your timely follow-up is very important to us. Your care was managed by the Trauma and Acute Care Surgery Team at [facility]. If you have any questions or concerns, please feel free to contact us. Provider Contact Information: General Surgery: [facility] (after business hours): CC: Compartment syndrome Primary Care Physician: None General Instructions Substance Use Treatment, Harm-Reduction, and Relapse Prevention Resources Residential Treatment: [facility] [address] [place], [place] [id number] [address] [address] Intensive Outpatient Programs: Quitting Time [facility] [address] [place] [address] Health Care and Rehabilitative Services [address] [place] [address] [phone] Individual Counseling: [facility] Human Services [address] [place] [address] ALEX Whitlock [address], [address] [place] [address] ----and---- [address] [place] [address] [place] [address], [address] [place], [place] [phone] Offers EMDR Therapy You may also search www.psychologytoday.com or dial [employer] for therapists in your area. EMDR Therapy [...] completed in fewer sessions than other psychotherapies. www.emdria.org/axglr-czjf-zidnevb/ Medication Assisted Therapy: [facility] [address] [place], [place] [id number] [address] [id number] [facility] [address] [place] [address] [facility], [place] [id number] [facility] [address] [place] [address] [facility], [place] [phone] Peer Support Groups Alcoholics Anonymous (AA) [place]: , www.nhaa.net Narcotics Anonymous (NA) [place]: , www.gmana.org Community Peer Support Center Journey to Recovery [address] [place], [place] Online AA and NA Meetings AA, NA, Refuge Recovery, SMART Recovery www.Grapevine Talk.Dysonics AA Video Meetings www.aa-intergroup.org/directory_audio-video.php AA Text Chat Meetings www.aa.intergroup.org/directory.php NA Video Meetings www.virtual-na.org/meetings NA Text Chat Meetings Www.neveraloneclub.org SMART Recovery Meetings via Zoom 5:00-6:00pm, free and open to all To join Zoom meetin. Visit www.Swivel 2. Click on calendar on top of toolbar 3. Find the correct meeting date and time 4. Click the zoom link and enter password provided Additional Substance Use Treatment Resources Www.vtaddictionservices.org www.healthvermont.gov/alcohol-drugs www.posqdem536.org/ (Search for Substance Use) www.Veros Systems/ Www.rethinkingdrinking.niaaa.nih.gov/ www.[facility].gov/lhoachbszm-cthtwazs-xjiljphvy/erenknylkcry-eubokqk-thxf/treatment -practitioner-pile driver operator helper Mental Health Crisis [place] Mental [facility] Crisis Line: Dial 988 www.[facility].gov/find-help/988 Harm-Reduction Resources Mobile operations. For more information about receiving supplies: including syringe exchange, fentanyl test strips, and naloxone, or to schedule an appointment: [place] clients call and leave a message for Graciela (ext. 105) or Doc Liu (ext. 104). [place] clients call to speak with Doc Choi [...] is being approved. Online Stress Reduction Resources www.Kavalia.Dysonics/videos-features/videos/obmdybmkl-qgmqagjfj-9-7-8-breath/ www.GIS Cloud.org/2013/ddhewtnje-rrchrtvji-olxsknd-moment/ www.headsPointBurstce.Dysonics/ www.mindful.org/ www.freeTHEVAdfShoopness.org/ Employment Agency Working [employer] [address] [place] [id number] secondchances@[employer] Systems.Dysonics Providing an opportunity for successful employment and recovery by empowering individuals to manage challenges because of substance use addiction and past convictions. CC: Compartment Syndrome Signed: Vance Curiel MD PGY1 Acute Care Surgery Team Pager [phone] 03/23/2022 4:18 PM I saw and evaluated [...] this encounter Discharge Instructions Discharge InstructionsMiguel Prather, INSULATION WORKER - 02/12/2022 3:40 PM EDT Substance Use Treatment, Harm-Reduction, and Relapse Prevention Resources Residential Treatment: [facility] [address] [place], [place] [phone] [facility] [address] [place], [place] [address] Intensive Outpatient Programs: [facility] [address] [place], [place] [id number] Health Care and Rehabilitative Services [address] [place] [address] [phone] Individual Counseling: [facility] Human Services [address] [place], [place] [address] ALEX Whitlock [address], [address] [place] [address] ----and---- [address] [place], [place] [address] [facility] [address], [address] [place], [place] [phone] Offers EMDR Therapy You may also search www.psychologytoday.com or RunMyProcess for therapists in your area. EMDR Therapy [...] completed in fewer sessions than other psychotherapies. www.emdria.org/xgujo-umkd-rpqogbb/ Medication Assisted Therapy: [facility] [address] [place], [place] [address] [address] [address] [facility] [address] [place] [address] [place] [address] [facility] [address] [place] [address] [place] [address] Peer Support Groups Alcoholics Anonymous (AA) [place]: , www.nhaa.net Narcotics Anonymous (NA) [place]: , www.gmana.org Community Peer Support Center Journey to Recovery [address] [place], [place] Online AA and NA Meetings AA, NA, Refuge Recovery, SMART Recovery www.Infusion Medical AA Video Meetings www.aaW-21intergroup.org/directory_audio-video.php AA Text Chat Meetings www.aaProgressive Lighting And Energy Solutionsintergroup.org/directory.php NA Video Meetings www.Thomsons Online Benefitsna.org/meetings NA Text Chat Meetings Www.Alderaaloneclub.org SMART Recovery Meetings via Zoom 5:00-6:00pm, free and open to all To join Zoom meeting: Visit www.Swivel Click on calendar on top of toolbar Find the correct meeting date and time Click the zoom link and enter password provided Additional Substance Use Treatment Resources Www.vtaddictionservices.org www.health[place].gov/alcohol-drugs www.[place] [address].org/ (Search for Substance Use) www.Jellyvision.Dysonics/ Www.rethinkingdrinking.niaaa.nih.gov/ www.samhsa.gov/teykosoxsj-jsgehhqc-zdqwitpws/imtqvxafxjsq-ojoxlwf-imvu/treatment -practitioner-pile driver operator helper Mental Health Crisis National Mental [facility] Crisis Line: Dial 988 www.samhsa.gov/find-help/988 Harm-Reduction Resources Mobile SOLOMO365. For more information about receiving supplies: including syringe exchange, fentanyl test strips, and naloxone, or to schedule an appointment: [place] clients call and leave a message for Graciela (ext. 105) or Doc Liu (ext. 104). [place] clients call to speak with Doc F. [...] is being approved. Online Stress Reduction Resources www.Tetherball/videos-features/videos/sycyufqgi-txmmnwqjy-8-7-8-breath/ www.GIS Cloud.org/2013/rthkujnfi-rhxaslrgo-fswvrkh-moment/ www.Hellotravel/ www.mindful.org/ www.Apiary.org/ Employment Agency [employer] [address] [place] [address] MyWerxncTurbulenz@Celotor Providing an opportunity for successful employment and [...] 1. You will have follow-up appointments at [facility] as indicated in the ???Future Appointments and [...] appointment on the next day. Please call [phone] if you do not hear from us by that time, as your timely follow-up is very important to us. Your care was managed by the Trauma and Acute Care Surgery Team at [facility]. If you have any questions or concerns, please feel free to contact us. Provider Contact Information: General Surgery: [facility] (after business hours): CC: Compartment syndrome Primary Care Physician: None AttachmentsThe following attachments cannot be sent through Care Everywhere. Compartment Syndrome (Jordanian)documented in this encounter Medications at Time of [...] 03/23/2022 3:13 PM EDT [facility] Report given to ÁNGEL Roland. Ambulance arrived 1430 to transport pt. Piccremains in place. Hernán Hobbs - 03/23/2022 2:11 PM EDT Office of Care Management/Software Consultant Patient Name: Alix Holland : 1990 Patient has been offered an Acute IRF bed at [facility]. [facility] arranged for a BLS transport at 1430. Ambulance will need: Medicare ambulance form completed and signed (MD or Hospice Care Transitions Coordinator RN/MICROBIOLOGY SUPERVISOR) Copy of patient demographics [place] or [place] Out of Hospital DNR/DNI order, if active MD to MD report to Dr. Rosa at [phone]. Please call Nursing Report to [phone], ask for labor relations officer. Info to accompany patient: Copies of Medication Administration Records and IV sheets for past 10 days. Plan: Software Consultant will be available to the patient and Hospice Care Transitions Coordinator-RN and/or Fireworks Maker for further assistance. Patient will be discharged to: [place] [address] Hernán Hobbs Software Consultant Sivakumar Trevino PTA - 03/23/2022 1:25 PM [...] managment/propulsion training. Total Minutes, Physical Therapy: 55 ([phone]) Billing Code: TESx2, TEFx2 Sivakumar TrevinoSVETLANA Pager: [phone] Physical Therapy Inpatient Rehabilitation Department Lizzy Love RN - 03/23/2022 12:41 PM EDT Physician Certification Statement for Non-Emergency Ambulance Services Section I - General Information Alix Holland 1990 Medicaid Number:[id number] Transport Date: 03/23/2022 (PCS is valid for round trips on this date and for all repetitive trips in the 60-day range as notedbelow.) Origin: [facility] Destination: [facility] Acute Rehabilitation and Sub-Acute (Swing) Rehab Levels of Care [address] [place] [address] Is the patient's stay covered under Medicare [...] wheelchair van (i.e. seated during transport, without manager medical or monitoring?): No 4) In addition to [...] by the Centers of Medicare and MedicaidServices ([facility]) to support the determination of medical necessity [...] pt need to f-u with surgeon or AIRCRAFT REFUELER (please indicate reason if attending provider): Attending [...] and left superior gluteal artery via R INFORMATION SERVICES MANAGER access. Reason for intervention: Follow up Nutrition [...] 02/05/2022 TRIG 359 01/26/2022 CRP <3.0 04/26/2021 [id number] 535 02/03/2022 25OHVITD 12 (L) 02/19/2022 SFOLATE [...] encounter: 78.2 kg (172 lb 8 oz). [place] Body Weight: 80.9kg- [place] Usual Body Weight: [...] Based on IBW 80.9kg Estimated needs: Calories: 3349-2871 (25-30kcal/kg) Protein: 120 grams (1.5 g/kg IBW) Nutrition Focused Physical Exam (NFPE): Performed on 03/01/22. Subcutaneous fat loss at Orbital region: Moderate Upper arm region (triceps/biceps): Mild Thoracic and lumbar region (ribs, lower back and maxillary line): Not assessed Lean muscle loss to Jewish region (temporalis muscle): Moderate Clavicle bone region [...] while inpatient THANKS KAYLAH JANG RD Pager #:[phone] Josh Peck RN - 03/22/2022 6:30 PM [...] difficulty obtaining soboxone prescription. Bed available at [facility]. Dressing changes today by nursing. [...] Gomez MD PGY1 Acute Care Surgery pager [phone] I saw and evaluated the patient with [...] Hidalgo MD PGY5 Acute Care Surgery pager [phone] Attending Addendum I have seen and examined [...] Hidalgo MD PGY5 Acute Care Surgery pager [phone] Attending Addendum I have seen and examined [...] 03/19/2022 4:11 PM EDT Per request this leader writer updated patient on inpatient rehabilitation facility search, informed that [facility] is following the referral, however at this time does not have acute rehab bed availability till 03/22/2022. Alix would like referral to [facility] which is closed to home. Discussed that [facility] is SNF with less therapy hours available. Patient verbalized understanding and in would like referral placed to: [address] [address] RS please submit referral with all supporting [...] Started Suboxone per Psych recs. - Discontinued RIGGER THIRD Dilaudid yesterday (03/18). - Discontinued IV Vanc [...] is ongoing. Possibly will be discharged to [facility] but there are no beds currently. He may need a COVID test prior to discharge per facility request; otherwise, monitor with weekly CBCs and BMPs. He had his dressings changed at the bedside yesterday with Dr. Chatterjee who used Aquafor instead of silver gel. RIGGER THIRD (dilaudid) was discontinued yesterday (03/18). He completed [...] status; PT/OT consulted: recommend acute rehab - As400 Developer sent requests to 2 locations with ongoing [...] thigh wound PT/OT and dispo planning D. Aidna Chatterjee MD Batsheva Hill MD - 03/18/2022 [...] well. Otherwise, hasbeen off of bedrest since 8/15. - Dressing change at bedside yesterday (03/17) with plan to change again today. - D/C RIGGER THIRD (Dilaudid) today. - On IV Vanc and [...] is ongoing. Possibly will be discharged to [facility] but there are no beds currently. He had his dressings changed at the bedside yesterday with Dr. Chatterjee who used bacitracin; completed another dressing change today with Aquafor instead of silver gel. RIGGER THIRD (dilaudid) was discontinued today. Diet remains as high calorie/protein with the addition of TUMS at meals. He will complete a course of IV Vancomycin and Meropenem (ends 03/19) before switching to PO Vancomycin (ends 03/26). Plan: Neuro: #Pain - [place] PO Tylenol 1000 mg q8h - D/c dilaudid RIGGER THIRD - PO Oxycodone 10-15 PRN Q4 #Polysubstance [...] status; PT/OT consulted: recommend acute rehab - As400 Developer sent requests to 2 locations with ongoing [...] 03/26) as recommended by ID - Weaning RIGGER THIRD (dilaudid) with the plan to d/c it [...] managment/propulsion training. Total Minutes, Physical Therapy: 60 ([phone]) Billing Code: TEFx2, GT Sivakumar Trevino, SOLAR FIELD INSTALLATION CREW MEMBER Pager: [phone] Physical Therapy Inpatient Rehabilitation Department Jeanette Chatterjee [...] 03/26) as recommended by ID - Weaning RIGGER THIRD (barbara) with the plan to d/c it [...] another dressing change tomorrow with silver gel. RIGGER THIRD will continue to be weaned. Diet was changed from low phosphorus to high calorie/protein with the addition of TUMS at meals. Additionally, his antibiotics were restarted today; he will complete a course of IV Vancomycin and Meropenem (ends 03/19) before switching to PO Vancomycin (ends 03/26). Plan: Neuro: #Pain - AMERICA PO Tylenol 1000 mg q8h - dilaudid RIGGER THIRD, weaning - PO Oxycodone 10-15 PRN Q4 [...] Dispo: Floor status; PT/OT consulted, recommend acute rehab--As400 Developer sent requests to 2 locations. Code Status: [...] thigh, calf forearm and wrist (01/23) and??I+D GLEN ROBBE (01/26). Previously completed treatment??for aspiration pneumonia versus [...] - Now off of antibiotics - Weaning RIGGER THIRD (dilaudid) Social History: Home setup: Pt lives [...] had pt perform gastroc stretch with leg credit review manager MMT L Gastroc 2-/5 Balance: Seated Static: [...] Pt limited in distance due to his RIGGER THIRD pump, but once DCd pt could likely [...] managment/propulsion training. Total Minutes, Physical Therapy: 40 ([id number]) Billing Code: DEACON SAMUELSSVETLANA Pager: [phone] Physical Therapy Inpatient Rehabilitation Department Jairo Kirkland [...] the chair for a period of time / left leg pain is similar to yesterday, [...] 431 msec Imaging: External records in - [facility]: Yes - CareEverywhere: No - Paper [...] Felix MD Infectious Diseases Fellow- PGY4 Pager: [phone] 03/16/2022 2:15 PM ID Attending I have [...] Treatment Number OT: 8 Patient Dx: Per MD note: Alix Holland [...] LUE ?? Social History: Patient lives in [place], [place] with his dad. Home Setup: [address], 2 level home, bedroom on 1st level, bathroom available on 1st level, has a tub shower downstairs. DME: none Baseline ADL/Mobility: Pt reports he was independent w/ ADL's and IADL's, had worked for a [employer]. He enjoys hunting and fishing. He reports he likes [employer] music ?? Interval History: Pt to OR last week for LUE and LLE grafts. Per MD Note 03/16 - Now off of bedrest - Dressing change in the OR yesterday - Now off of antibiotics - Weaning RIGGER THIRD (dilaudid) Precautions/Special Considerations: SOAP/WATER; fall risk, LUE/LLE WBAT, L forearm and L thigh grafts, RIGGER THIRD S: I need some help with that [...] 2-4 times/wk Total Minutes, Occupational Therapy: 30 ([facility] x2 ([phone]) Pager: [phone] [facility] Occupational Therapy Rehabilitation Department Kaylah [...] and left superior gluteal artery via R INFORMATION SERVICES MANAGER access. Reason for intervention: Follow up Nutrition Recommendations: Regular diet ; enc high protein high calorie Given tendency toward intake < est needs, suggest omit low phosphorus restriction and give TUMs w/ meals Limit NPO to periods to only when necessary to avoid missing nutrition windows Encourage pt to continue double portions protein and milk with meals Discussed above w/ E. Sergio HARTLEY #[id number] Active Orders Diet High Protein - High [...] 02/05/2022 TRIG 359 01/26/2022 CRP <3.0 04/26/2021 [id number] 535 02/03/2022 25OHVITD 12 (L) 02/19/2022 SFOLATE [...] encounter: 78.9 kg (173 lb 15.1 oz). [place] Body Weight: 80.9kg- [place] Usual Body Weight: [...] Based on IBW 80.9kg Estimated needs: Calories: 1764-5566 (25-30kcal/kg) Protein: 120 grams (1.5 g/kg IBW) Nutrition Focused Physical Exam (NFPE): Performed on 03/01/22. Subcutaneous fat loss at Orbital region: Moderate Upper arm region (triceps/biceps): Mild Thoracic and lumbar region (ribs, lower back and maxillary line): Not assessed Lean muscle loss to Jewish region (temporalis muscle): Moderate Clavicle bone region [...] while inpatient THANKS KAYLAH JANG RD Pager #:[phone] Jeanette Chatterjee MD - 03/16/2022 5:38 AM [...] - Now off of antibiotics - Weaning RIGGER THIRD (dilaudid) Objective Vitals: Last Value Range last [...] Their notes will be sent by the As400 Developer to the rehab facilities. Will likely have dressing change tomorrow. Currently weaning his dilaudid RIGGER THIRD. Plan: Neuro: #Pain - [place] PO Tylenol 1000 mg q8h - dilaudid RIGGER THIRD, weaning - PO Oxycodone 10-15 PRN Q4 [...] - Inpatient Note written in collaboration with Sviakumar Pierre MS3. 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 Patient states pain is 9/10, PRN medication given and pt repositioned. Dilaudid RIGGER THIRD infusing with RIGGER THIRD doseonly. No complaints of chest pain/SOB. No [...] recommendations below - Pain remains well-controlled with RIGGER THIRD and decreasing - Tolerating High calorie, high [...] bedrest. Plan: Neuro: [place] PO Tylenol, dilaudid RIGGER THIRD, PO Oxycodone 10-15 PRN Q4, Zofran PRN, [...] Oxycodone given. Takes sips of water easily. RIGGER THIRD re-started per order. Pt. Self dosing. Has [...] PICC line placed 03/03/2022 External Record in [facility]: Yes Care Everywhere:No Paper Record: No [...] Felix MD Infectious Diseases Fellow- PGY4 Pager: [phone] 03/15/2022 8:55 AM I have discussed case with Dr. Jairo Kirkland This note was created using [employer] voice recognition software. ID Attending I have [...] Reporting 8 to 10/10 pain, using dilaudid RIGGER THIRD and PRN oxygen given x2. No BM [...] recommendations below - Pain remains well-controlled with RIGGER THIRD and decreasing - Tolerating High calorie, high [...] that time. Plan: Neuro: [place] PO Tylenol, RIGGER THIRD, PO Oxycodone 10-15 PRN Q4, Zofran PRN [...] above, please page if further consultation required. .oLrenza Jha MD Infectious Disease I have seen [...] kerlix, coban - Pain remains well-controlled with RIGGER THIRD - Tolerating High calorie, high protein diet [...] 1g Q8H. Plan: Neuro: [place] PO Tylenol, RIGGER THIRD PO Oxycodone 10-15 PRN Q4, Zofran PRN [...] Status: Attempt Cardiopulmonary Resuscitation - Inpatient Norbert Silvia, JEFFERY Acute Care Surgery 03/13/22 Team Pager [phone] A medical student assisted me in the documentation of this note. I personally saw and evaluated the patient, reviewed all applicable documented studies, and diagnostic images. The assessment and plan were formulated with the care team at the time of the visit and in my presence. I have made edits to the above note and agree with the details above. Nanyc Chahal MD Resident, General Surgery 03/13/22 Adrienne Tejada RN - 03/13/2022 10:41 AM EDT Patient came back to [facility] from PACU via bed in stable condition. Amy Pineda RN - 03/13/2022 10:31 AM EDT 0931 Pt arrived to PACU lethargic, oral airway in place. Connected to monitors, alarms set and reviewed. VSS. LUE/LLE dressings CDI, only to be changed by MD. RLE dressings with dried drainage. 0945 Pt more awake, c/p pain, utilizizing RIGGER THIRD. 1000 Tolerating sips of lenora opal. Report given to ÁNGEL Deleon on [facility] Adrienne Tejada RN - 03/13/2022 7:52 AM [...] suction - Pain remains well controlled with RIGGER THIRD - Tolerating High calorie, high protein diet [...] Peterson Acute Care Surgery 03/12/22 Team Pager [phone] A medical student assisted me in the [...] allowed to mobilize out of bed. JASWINDER CHUNG PTA Pager: [phone] Physical Therapy Inpatient Rehabilitation Department Adrienne Tejada [...] any alarming from wound vac, immediately page [phone]. S/p 3 days of IV iron, now [...] 03/14 for OR. If any alarming, page [phone]. - s/p multiple fasciotomies, OR debridements, and [...] VAC particularly not holding suction please page [phone] immediately given that thiswill affect skin graft take -High-protein high-calorie low Phos diet -Plan to return to the operating room on Tuesday for VAC removal, bedrest until then -RIGGER THIRD for pain control will wean as able Veto Hidalgo MD PGY 5 Acute care surgery pager [phone] Marylou Retana RN - 03/10/2022 7:12 PM EDT Patient arrived back to unit from PACU @ approximately 1630. VSS on RA, drowsy but arouses to voice.RIGGER THIRD in place, pt continues to report 10/10 [...] 4 03/10/22 Acute Care Surgery Team Pager [phone] A medical student assisted me in the [...] (Room air) Intake/Output: 03/08 0701 - 03/09 0700 In: 2360 [P.O.:2350; [...] LUE ?? Social History: Patient lives in [place], [place] with his dad. Home Setup: [address] [facility], 2 level home, bedroom on 1st level, bathroom available on 1st level, has a tub shower downstairs. DME: none Baseline ADL/Mobility: Pt reports he was independent w/ ADL's and IADL's, had worked for a [employer]. He enjoys hunting and fishing. He reports [...] Pt demonstrated ability to doff socks with biofuels manager and don socks with sock aid ?? [...] 2-4 times/wk Total Minutes, Occupational Therapy: 32 ([facility] x2 ([phone]) Pager: [phone] [facility] Occupational Therapy Rehabilitation Department Tanesha [...] Denilson Muniz - 03/08/2022 3:14 PM EDT [employer] Tender Encounter Note Patient Name: Alix Holland : [id number] MR#: [id number] Admit Date: 01/23/2022 12:29 AM Hospital Day 44 days Narrative:Visited to introduce and assess acceptance of Rotary Furnace Tender services.Patient was not available and I will visit an other time. Assessment: Intervention and Outcome: Follow-up: Time in Direct Care: Denilson Muniz 03/08/2022 Jaswinder Cuhng PTA - 03/08/2022 2:55 PM EDT Physical [...] IADLs, drives, used to work for a [employer] but is not currently working. Enjoys [...] Therapy: 40 TE-F x 3 JASWINDER CHUNG, SOLAR FIELD INSTALLATION CREW MEMBER 03/08/2022 Pager: [phone] Physical Therapy Inpatient Rehabilitation Department Lizzy Miranda, [...] and left superior gluteal artery via R INFORMATION SERVICES MANAGER access. Reason for intervention: Follow up Nutrition [...] 02/05/2022 TRIG 359 01/26/2022 CRP <3.0 04/26/2021 [id number] 535 02/03/2022 25OHVITD 12 (L) 02/19/2022 SFOLATE [...] encounter: 77.4 kg (170 lb 11.2 oz). [place] Body Weight: 80.9kg- [place] Usual Body Weight: [...] Based on IBW 80.9kg Estimated needs: Calories: 1758-1097 (25-30kcal/kg) Protein: 120 grams (1.5 g/kg UBW) Nutrition Focused Physical Exam (NFPE): Performed on 03/01/22. Subcutaneous fat loss at Orbital region: Moderate Upper arm region (triceps/biceps): Mild Thoracic and lumbar region (ribs, lower back and maxillary line): Not assessed Lean muscle loss to Jewish region (temporalis muscle): Moderate Clavicle bone region [...] while inpatient THANKS Lizzy Miranda RD Pager #:[phone] Nancy Chahal MD - 03/08/2022 2:35 PM [...] LLE wound vac change was performed at [facility]. Healthy granulation tissue was found in [...] WOUND VAC NOTE Alix Holland 31 y.o./male [id number] DATE: 03/07/22 Admit Date: 01/23/2022 12:29 AM [...] Therapy: 30 TE-F x 2 JASWINDER CHUNG, SOLAR FIELD INSTALLATION CREW MEMBER 03/05/2022 Pager: [phone] Physical Therapy Inpatient Rehabilitation Department Tanesha Patel [...] LUE ?? Social History: Patient lives in [place], [place] with his dad. Home Setup: [address], 2 level home, bedroom on 1st level, bathroom available on 1st level, has a tub shower downstairs. DME: none Baseline ADL/Mobility: Pt reports he was independent w/ ADL's and IADL's, had worked for a [employer]. He enjoys hunting and fishing. He reports he likes [employer] music ?? Interval History: OR yesterday for [...] 2-4 times/wk Total Minutes, Occupational Therapy: 35 ([facility] x2 ([phone]) Pager: [phone] [facility] Occupational Therapy Rehabilitation Department Jayme [...] IADLs, drives, used to work for a [employer] company but is not currently working. Enjoys [...] Therapy: 30 TE-F x 2 JASWINDER CHUNG, SOLAR FIELD INSTALLATION CREW MEMBER 03/03/2022 Pager: [phone] Physical Therapy Inpatient Rehabilitation Department Jayme Armstrong [...] for CLD in the morning. Plan: Neuro: AEMRICA PO Tylenol, PO Oxycodone 10-15 PRN Q4 [...] LUE ?? Social History: Patient lives in [place], [place] with his dad. Home Setup: [address], 2 level home, bedroom on 1st level, bathroom available on 1st level, has a tub shower downstairs. DME: none Baseline ADL/Mobility: Pt reports he was independent w/ ADL's and IADL's, had worked for a [employer]. He enjoys hunting and fishing. He reports [...] 2-4 times/wk Total Minutes, Occupational Therapy: 35 ([facility] x2 ([phone]) Pager: [phone] [facility] Occupational Therapy Rehabilitation Department Madhavi [...] Given lenora opal and water at bedside, [place] sandwich requested. LUE wound VAC dressing intact [...] Denilson Muniz - 03/01/2022 3:38 PM EDT [facility] Encounter Note Patient Name: Alix Holland : [id number] MR#: [id number] Admit Date: 01/23/2022 12:29 AM Hospital Day [...] and left superior gluteal artery via R INFORMATION SERVICES MANAGER access. Reason for intervention: Follow up Nutrition [...] 02/05/2022 TRIG 359 01/26/2022 CRP <3.0 04/26/2021 [id number] 535 02/03/2022 25OHVITD 12 (L) 02/19/2022 SFOLATE [...] encounter: 82.1 kg (180 lb 14.4 oz). [place] Body Weight: 80.9kg- [place] Usual Body Weight: [...] Based on IBW 80.9kg Estimated needs: Calories: 7218-8729 (25-30kcal/kg) Protein: 120 grams (1.5 g/kg UBW) - pt on iHD w/ wound vacs Nutrition Focused Physical Exam (NFPE): Performed on 03/01/22. Subcutaneous fat loss at Orbital region: Moderate Upper arm region (triceps/biceps): Mild Thoracic and lumbar region (ribs, lower back and maxillary line): Not assessed Lean muscle loss to Jewish region (temporalis muscle): Moderate Clavicle bone region [...] to follow up while inpatient Thank you, KALYAH JANG RD Pager #:[phone] Josh Peck RN - 03/01/2022 2:00 AM [...] PM EDT Hypertension/Nephrology Inpatient Follow-up Alix Holland [id number] 1990 ID: 31 y.o. old male seen [...] changed vitamin D3 400 U -> D2 51509 weekly for six weeks given his severe deficiency. Would recommend rechecking a level after this (likely after discharge). - Continue daily MV - Avoid NSAIDs, contrast, and other nephrotoxic agents as able - Agree with iron studies on 03/01 as he will likely need replacement This case was discussed with staff interlocking installer Dr. Thomas. We will sign off at this time. Please do not hesitate to contact me with questions or concerns: Ph [phone] Pg [phone]. Dominic Almanza MD Nephrology Fellow, PGY-4 Associated [...] protein intake. Dania Thomas MD Nephrology Pager: [phone] Sixto Medina MD - 02/28/2022 10:28 AM [...] requires dialysis; they recommended starting weekly EPO 84982 units, given 02/25. PIV access unable to [...] PM EDT Hypertension/Nephrology Inpatient Follow-up Alix Holland [id number] 1990 ID: 31 y.o. old male seen [...] replacement This case was discussed with staff interlocking installer Dr. Thomas. We will follow peripherally at this time.Please do not hesitate to contact me with questions or concerns: Ph [phone] Pg [phone]. Dominic Almanza MD Nephrology Fellow, PGY-4 Associated attestation - Dania Thomas MD - 02/27/2022 5:33 PM EDT The patient was seen and examined with the nephrology fellow. Please see the nephrology fellow's note from today for details. I have reviewed the fellow's note and agree with the exam, and assessment and plan. Dania Thomas MD Nephrology Pager: [phone] Sixto Medina MD - 02/26/2022 3:14 PM [...] 2.39 (2.94), Nephrology following; Gave weekly EPO 36369 yesterday, start IV iron after completing Vancomycin [...] requires dialysis; they recommended starting weekly EPO 86620 units, given yesterday. Will obtain PIV access [...] MD - 02/26/2022 2:48 PM EDT PATIENT: Alxi Holland : 1990 Renal Follow-up Interval history: [...] Jareth Nino MD, MPH Section of Nephrology #[id number] Dania Cotter RN - 02/26/2022 10:02 AM EDT 0950 Patient admitted to PACU. Hand off received from Tamika WEST[place], [facility] care assumed. Assessments as documented. Monitors on, alarms audible and individualized to patient. 1015 [facility] Glenna Bejarano OT - 02/26/2022 8:44 AM [...] Voiding adequate amounts in urinal. Patient worked w/[employer] and stood at bedside. Lift used to [...] reviewed with no apparent indication for urgent FIGURE CLERK. Access: Can remove dialysis catheter. We are [...] Jareth Nino MD, MPH Section of Nephrology #[id number] Jaswinder Chung [facility] - 02/25/2022 12:05 PM EDT Physical [...] calf forearm and wrist (01/23) and??I+D LUE LLJuan (01/26). Previously completed treatment??for aspiration pneumonia versus [...] Therapy: 30 TE-F x 2 JASWINDER CHUNG, SOLAR FIELD INSTALLATION CREW MEMBER 02/25/2022 Pager: [phone] Physical Therapy Inpatient Rehabilitation Department Sixto Medina [...] tablet 1,000 mcg 1,000 mcg Oral Daily aKitlyn Rock MD 1,000 mcg at 02/24/22 0914 [...] 28 (L) >=60 mL/min/1.73 m?? Vidhya Peñaloza #[id number] Associated attestation - Jareth Nino MD - [...] Treatment Number OT: 4 Patient Dx: Per MD note: Alix Holland [...] fasciotomy 01/31: Debridement and wound vac change 7/5: Debridement and wound vac change 02/04: Debridement [...] LUE ?? Social History: Patient lives in [place], [place] with his dad. Home Setup: [address] [facility], 2 level home, bedroom on 1st level, bathroom available on 1st level, has a tub shower downstairs. DME: none Baseline ADL/Mobility: Pt reports he was independent w/ ADL's and IADL's, had worked for a [employer]. He enjoys hunting and fishing. He reports he likes country music ?? 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 Patient is now activity as tolerated with BUE/LE WBAT. See updated goals below. Dai Gerald OTR/L Pager [phone] Goals updated & extended to 03/08/22: -Patient [...] and left superior gluteal artery via R INFORMATION SERVICES MANAGER access. Reason for intervention: Follow up Nutrition [...] 02/05/2022 TRIG 359 01/26/2022 CRP <3.0 04/26/2021 [id number] 535 02/03/2022 SFOLATE 3.9 (L) 02/03/2022 IRON [...] encounter: 104.3 kg (229 lb 15 oz). [place] Body Weight: 80.9kg- [place] Usual Body Weight: [...] Based on IBW 80.9kg Estimated needs: Calories: 0051-8804 (25-30kcal/kg) Protein: 120 grams (1.5 g/kg UBW) [...] inpatient Thank you, Charlotte Castañeda RD Pager #:[phone] Jaswinder Chung PTA - 02/23/2022 11:00 AM [...] IADLs, drives, used to work for a [employer] company but is not currently working. Enjoys [...] x 3 JASWINDER CHUNG PTA 02/23/2022 Pager: [phone] Physical Therapy Inpatient Rehabilitation Department Sixto Medina [...] 4.9 CL 102 101 101 CO2 24 26 BUN 59* 55* 46* CREATININE 3.90* 3.91* [...] Status: Attempt Cardiopulmonary Resuscitation - Inpatient Alonzo Juan Adin, MS4 02/24/2022 Acute Care Surgery Team pager [phone] A medical student assisted me in the [...] MD 02/22/2022 Acute Care Surgery Team pager [phone] Attending Addendum I have seen and examined [...] Melissa Gonzales MD Acute Care Surgery Pager [phone] Kevon Brian MD - 02/22/2022 10:29 AM [...] SpO2: [94 %-100 %] Laboratory: Recent Labs 02/22/2210702/21/22 0338 02/20/22 0445 WBC [...] MD 02/21/2022 Acute Care Surgery Team pager [phone] Associated attestation - Gela Novak MD - [...] positive cocci Endo: - No active interventions, CT MSK: - s/p multiple fasciotomies 01/23: L [...] MS4 02/20/2022 Acute Care Surgery Team pager [phone] A medical student assisted me in the [...] Melissa Gonzales MD Acute Care Surgery Pager [phone] Melissa Gonzales MD - 02/19/2022 2:52 PM [...] MD 02/19/2022 Acute Care Surgery Team pager [phone] Associated attestation - Gela Novak MD - [...] mL) subcutaneous injection 5,000 Units 5,000 Units [id number] [facility] Collette Dye MD 5,000 Units at [...] tablet 1,000 mg 1,000 mg Oral Q8H [facility] Collette Dye MD 1,000 mg at [...] /HPF Stippled RBCs Present >1/HPF Vidhya Peñaloza #[id number] Dai Duarte, OT - 02/18/2022 2:48 PM [...] LUE ?? Social History: Patient lives in [place], [place] with his dad. Home Setup: [address], 2 level home, bedroom on 1st level, bathroom available on 1st level, has a tub shower downstairs. DME: none Baseline ADL/Mobility: Pt reports he was independent w/ ADL's and IADL's, had worked for a [employer] company. He enjoys hunting and fishing. He reports he likes country music ?? Interval History: (Per MD note): NAEO Precautions/Special Considerations: SOAP/WATER; At risk to fall, flexiseal, L UE and L LE NWB; L forearm wound vac; RIGGER THIRD; Femoral A-line S: Ill try it I [...] Total Minutes, Occupational Therapy: 60 (tef x4 [phone]) Pager: [phone] AMA QURESHI, HEAD OF TRAINING AND DEVELOPMENT Occupational Therapy Rehabilitation Department *POC reviewed between HEAD OF TRAINING AND DEVELOPMENT/OTR. Patient is now activity as tolerated with BUE/LE WBAT. See updated goals below. Dai Duarte OTR/L Pager [phone] Goals updated & extended to 8/8/22: -Patient will don/doff UB clothing with supervision [...] MD 02/18/2022 Acute Care Surgery Team pager [phone] Associated attestation - Gela Novak MD - [...] mL) subcutaneous injection 5,000 Units 5,000 Units [id number] Collette Zacarias MD 5,000 Units at 02/17/22 [...] Moderate Neutrophils No microorganisms seen. Vidhya Kaur #[id number] Associated attestation - Bambi Pressley MD - [...] No obstruction. No perforation. Assessment and Plan Alxi Holland is a 31 y.o. male with [...] MD 02/17/2022 Acute Care Surgery Team pager [phone] Associated attestation - Gela Novak MD - [...] Melissa Gonzales MD Acute Care Surgery Pager [phone] Tasha Matthews OTA - 02/17/2022 8:00 AM [...] better. However, at this time, he needs FIGURE CLERK. - Hemodynamically stable. PHYSICAL EXAM: Last value [...] mL) subcutaneous injection 5,000 Units 5,000 Units [id number] Collette Zacarias MD 5,000 Units at 02/16/22 [...] (H) 0.00 - 0.04 x10(3)/mcL Vidhya Peñaloza #[id number] Associated attestation - Bambi Pressley MD - [...] MD 02/16/2022 Acute Care Surgery Team pager [phone] Associated attestation - Gela Novak MD - [...] and left superior gluteal artery via R INFORMATION SERVICES MANAGER access. Reason for intervention: Follow up Nutrition [...] 02/05/2022 TRIG 359 01/26/2022 CRP <3.0 04/26/2021 [id number] 535 02/03/2022 SFOLATE 3.9 (L) 02/03/2022 IRON [...] encounter: 104.3 kg (229 lb 15 oz). [place] Body Weight: 80.9kg- [place] Usual Body Weight: [...] Based on IBW 80.9kg Estimated needs: Calories: 3816-3339 (25-30kcal/kg) Protein: 120 grams (1.5 g/kg UBW) [...] acute illness or injury (Keven adams al, JPEN J Parenteral Enteral Nutr. 2011; 36(3): 273-83) Nutrition to continue to follow up while inpatient KALYAH JANG RD Pager #:[phone] Vidhya Peñaloza MD - 02/15/2022 6:47 PM [...] with PMHx drug abuse, initially admitted to [facility] after he had cardiac arrest sec to [...] mL) subcutaneous injection 5,000 Units 5,000 Units [id number] [place] Veto Hidalgo MD 5,000 Units at [...] tablet 1,000 mcg 1,000 mcg Oral Daily eVto Hidalgo MD 1,000 mcg at 02/15/22 162 ??? thiamine (Vitamin B1) tablet 100 mg 100 mg Oral Daily Veto Hidalgo MD 100 mg at 02/15/22 162 ??? acetaminophen (Tylenol) tablet 1,000 mg 1,000 [...] Melissa Gonzales MD Acute Care Surgery Pager [phone] Melissa Gonzales MD - 02/15/2022 1:46 PM [...] MD 02/15/2022 Acute Care Surgery Team pager [phone] Associated attestation - Gela Novak MD - [...] in PACU. Report called to [facility] and patient resource specialist. Ama Tucker RN - 02/15/2022 4:50 AM [...] EDT Hypertension/Nephrology Staff Inpatient Follow-up Alix Holland [id number] 1990 ID: 31 y.o. old male seen [...] MD 02/14/2022 Acute Care Surgery Team pager [phone] Jairo Kirkland MD - 02/13/2022 4:06 PM [...] Notably without neutrophilia. #C difficile infection, stable #ATLHEA on HD, stable #Hx COVID, stable PLAN [...] -- I/O last 3 completed shifts: In: 2000 [P.O.:1350; Blood:350; IV Piggyback:300] Out: 4835 [Other:4836] [...] Estimate Normal RBC Morphology Abnormal Hypochromia Slight [place] Cells 1-5 /HPF Stippled RBCs Present >1/HPF [...] EDT Hypertension/Nephrology Staff Inpatient Follow-up Alix Holland [id number] 1990 ID: 31 y.o. old male seen [...] chemistries otherwise stable. - no indication for FIGURE CLERK today - 1.5L/d fluid restriction - avoid [...] debridements of LLE and L forearm. Mr. Holladn has had a prolonged, complicated hospital course [...] MD 02/13/2022 Acute Care Surgery Team pager [phone] Vidhya Peñaloza MD - 02/12/2022 8:33 PM [...] mL) subcutaneous injection 5,000 Units 5,000 Units [id number] [place] Kaitlyn Rock MD 5,000 Units at [...] next week. Meghan Prabhakar, PT DPT Pager #[phone] 02/12/2022 Physical Therapy Rehabilitation Department Parrish Betancourt [...] MD 02/12/2022 Acute Care Surgery Team pager [phone] SURGICAL ATTENDING NOTE: Pt seen and examined [...] mL) subcutaneous injection 5,000 Units 5,000 Units [id number] Kaitlyn Valladares MD 5,000 Units at 02/11/222118 ??? vancomycin [...] tablet 1,000 mg 1,000 mg Oral Q8H [facility] Kaitlyn Rock MD 1,000 mg at [...] 6120 [P.O.:4850; I.V.:1009; Other:45; IV Piggyback:216] Out: 98134 [Other:88105; Stool:200] I/O this shift: In: 600 [P.O.:300; [...] Montaño MD Acute Care Surgery Team Pager [phone] 02/11/22 Sg Parra RN - 02/11/2022 2:36 PM EDT OUTCOME EVALUATION NOTE: ?? OUTCOME SUMMARY: Pt alert and oriented x4. On room air, no SOB and dyspnea. 8/10 general pain, relief with RIGGER THIRD dilaudid and PRN oral oxycodone. Wound vac [...] MD 02/11/2022 Acute Care Surgery Team pager [phone] Tamika Burk, RN - 02/11/2022 11:41 AM EDT Pt to PACU via bed from OR; monitors applied, alarms set and audible. Woke up well from Anesthesia; comfortable initially, then c/o LLE killing me. Pt given RIGGER THIRD, which he used independently. Given additional IV [...] and left superior gluteal artery via R INFORMATION SERVICES MANAGER access. Interval hx: Pt continues NPO for [...] discuss plan with provider Kaylie Montaño MD #[id number]. Active Orders Diet Regular diet Frequency: Effective [...] 02/05/2022 TRIG 359 01/26/2022 CRP <3.0 04/26/2021 [id number] 535 02/03/2022 SFOLATE 3.9 (L) 02/03/2022 IRON [...] encounter: 104.3 kg (229 lb 15 oz). [place] Body Weight: 80.9kg- [place] Usual Body Weight: [...] Based on IBW 80.9kg Estimated needs: Calories: 2794-3087 (25-30kcal/kg) Protein: 200+ grams (2.5 g/kg) - [...] injury (Nelia, JPEN J Parenteral Enteral Nutr. 2012 November; 36(3): 273-83) Nutrition to continue to follow up while inpatient KAYLAH JANG RD Pager #:[phone] Tanesha Patel RN - 02/11/2022 6:00 AM EDT OUTCOME EVALUATION NOTE: ?? OUTCOME SUMMARY: Pt AOx4. Had RIGGER THIRD Dilaudid, IV Dilaudid and PO oxycodone for pain. Dressings had been CDI. Wound vac in situ. NPO at [place] for surgery today. Awaiting MRI schedule. 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 Q shift N/V checks, pulses dopplerable. Provider notified pt would need to disconnect from wound vacs for MRI, communication placed, ok to disconnect. NPO at midnight for washout of wounds. PLAN MOVING FORWARD: NPO at midnight for washout IHD MWF Q8 sodium levels RIGGER THIRD for pain Free water restriction 1L Vidhya Peñaloza MD - 02/10/2022 1:47 PM EDT NEPHROLOGY PROGRESS NOTE PATIENT: Alix Holland : 1990 Interval History: Patient seen and examined at bedside. On HD when seen. Tolerated HD well. I/O last 3 completed shifts: In: 6279 [P.O.:2030; I.V.:3362; Blood:350; Other:30; IV Piggyback:507] Out: 54170 [Other:63438; Stool:1025; Blood:20] I/O this shift: In: 2473 [...] mL) subcutaneous injection 5,000 Units 5,000 Units [id number] [place] Jeanette Escamilla APRN 5,000 Units at [...] mg/mL) in sodium chloride 0.9% 50 mL RIGGER THIRD infusion Intravenous RIGGER THIRD Only Jeanette Escamilla APRN 1 mL/hr at [...] Q1 Min PRN Jeanette Escamilla APRN ??? RIGGER THIRD hutton Intravenous Continuous PRN Jeanette Escamilla APRN ??? HYDROmorphone (mg) RIGGER THIRD shift total and Settings verification Intravenous 2 Times Daily- RIGGER THIRD Shift Total Jeanette Escamilla APRN ??? dronabinoL [...] Abnormal Polychromasia Present >5/HPF Ovalocytes 1-5 /HPF [place] Cells 1-5 /HPF Stippled RBCs Present >1/HPF [...] was initially admitted to MICU 01/23 at [facility] after he was found down following [...] 02/10 0700 In: 4038 [P.O.:1250; I.V.:2350] Out: 29263 Physical Exam: General: no distress, awake in [...] pressors.Pain better controlled with PO medications and RIGGER THIRD. Nephrology is amenable to iHD in place of [facility]. ID following regarding C. diff treatment. PLAN: Neuro:?Toxic metabolic encephalopathy, bilateral globus pallidum infarcts, hx polysubstance abusewith difficult to control pain - Pain control: acetaminophen, Dilaudid RIGGER THIRD, oxycodone PRN, Dilaudid breakthrough - Marinol 10mg [...] MD, PGY2 Acute Care Surgery Team pager [phone] Jose Hernandez MD - 02/10/2022 12:47 PM [...] mg/mL) in sodium chloride 0.9% 50 mL RIGGER THIRD infusion ??? diphenhydrAMINE (Benadryl) (50 mg/mL) injection 25 mg ??? prochlorperazine (Compazine) (5 mg/mL) injection 5 mg ??? ondansetron (pf) (Zofran) (2 mg/mL) injection 4 mg ??? naloxone (Narcan) (0.4 mg/mL) injection 0.2 mg ??? RIGGER THIRD hutton ??? HYDROmorphone (mg) RIGGER THIRD shift total and Settings verification ??? dronabinoL (Marinol) capsule 10 mg ??? senna-docusate (Pericolace) 8.6-50 mg per tablet 2 tablet ??? folic acid (Folvite) tablet 1,000 mcg ??? thiamine (Vitamin B1) tablet 100 mg ??? acetaminophen (Tylenol) tablet 1,000 mg ??? HYDROmorphone 50 mg (02/07/22 9504) OBJECTIVE: Temp: [36.4 ??C (97.5 ??F)-37.4 ??C (99.4 ??F)] Heart Rate: [99-120] Resp: [12-26] BP: (120-124)/(69-74) Intake/Output Summary (Last 24 hours) at 02/10/2022 1247 Last data filed at 02/10/2022 1148 Gross per 24 hour Intake 4838 ml Output 05824 ml Net -9966 ml Body mass index [...] any changes, questions, or concerns please page [phone]. Activity: NWB LUE, NWB LLE DVT prophylaxis: [...] EDT Hypertension/Nephrology Staff Inpatient Follow-up Alix Holland [id number] 1990 ID: 31 y.o. old male seen [...] the MICU 01/23 s/p [place] arrest at [facility] in the setting ofbeing down for [...] control pain - pain control: acetaminophen, D. RIGGER THIRD - PRN Dilaudid for breakthrough pain, start [...] debride ment.?? Social History: Patient lives in [place], [place] with his dad. Home Setup: [address] [facility], 2 level home, bedroom on 1st level, bathroom available on 1st level, has a tub shower downstairs. DME: none Baseline ADL/Mobility: Pt reports he was independent w/ ADL's and IADL's, had worked for a [employer]. He enjoys hunting and fishing. He reports he likes country music ?? Precautions/Special Considerations: SOAP/WATER; At risk to fall, flexiseal, L UE and L LE NWB; L forearm wound vac; NPO, Bedrest; RIGGER THIRD; Femoral A-line S: My leg really hurts [...] to participate ?? Alert and oriented to: [facility], January,. When asked the day of the [...] See PT note Pain: 8/10 to LLE; RIGGER THIRD in place Education: Pt/family/caregiver education ongoing regarding: [...] Total Minutes, Occupational Therapy: 34 (10:34-11:08) Pager: [phone] DAI DUARTE OT Occupational Therapy Rehabilitation Department [...] IADLs, drives, used to work for a [employer] company but is not currently working. Enjoys [...] (PT): 2-4 times/wk Time IN / OUT: 4674-4436 Total Minutes, Physical Therapy: 31 (TEFx2). Meghan Prabhakar PT DPT 02/09/2022 Pager: [phone] Physical Therapy Inpatient Rehabilitation Department Carlo Jackson [...] and left superior gluteal artery via R INFORMATION SERVICES MANAGER access. Interval hx: Pt continues NPO for OR today. Team hopeful to advance diet after OR. Reason for intervention: Malnutrition evaluation and TPN Nutrition Recommendations: ADAT and encourage good intake. Pt with high protein needs- please encourage intake of eggs, nuts, meats, thai yogurt, fish, and Ensure Enlive. Please order [...] 02/05/2022 TRIG 359 01/26/2022 CRP <3.0 04/26/2021 [id number] 535 02/03/2022 SFOLATE 3.9 (L) 02/03/2022 IRON [...] encounter: 111.7 kg (246 lb 4.1 oz). [place] Body Weight: 80.9kg- [place] Usual Body Weight: [...] Based on IBW 80.9kg Estimated needs: Calories: 0584-3340 (25-30kcal/kg) Protein: 200+ grams (2.5 g/kg) - [...] setting of acute illness or injury (Nelia, JPPARTH J Parenteral Enteral Nutr. 2011; 36(3): 273-83) Nutrition to continue to follow up while inpatient Carlo Jackson RD Pager #:[phone] Collette Dye MD - 02/09/2022 9:03 AM [...] was initially admitted to MICU 01/23 at [facility] after he was found down following [...] 2311 02/06/22 2220 02/06/22 1945 02/06/22 1633 WBC 12.6* [...] 02/07/22 1300 02/07/22 0605 02/07/22 0047 02/06/22 23102/06/22 1945 02/06/22 1620 NA 130* 126* 129* [...] diff screen (02/01): Positive Abscess/Wound Aspirate Culture [[id number]] (Abnormal) Collected: 02/08/221612 Lab Status: Preliminary result Specimen: Deep Wound from Thigh, Left Updated: 02/08/221717 Gram Stain --??Abnormal?? Many Neutrophils seen Moderate Gram Negative Rods seen ??Abnormal?? Abscess/Wound Aspirate Culture [[id number]] (Abnormal) Collected: 02/08/221612 Lab Status: Preliminary result [...] any questions regarding this consult, please page [phone] if you have any further questions. [X] [...] to the MICU 01/23??s/p [place] arrest at [facility] in the setting of being down [...] the central venous catheters, as above. ASSESSMENT/PLAN: Ailx Melita CrooksOchoa??is a 31 y.o.??man??with acute renal failure in [...] Neurology - Pain control: ?? acetaminophen, D. RIGGER THIRD ?? PRN Dilaudid for breakthrough pain ?? [...] Plastic Surgery Inpatient Progress Note (Team Pager #[phone]) Date of surgery: N/A CC/Procedure(s): N/A Surgeon: [...] Reynoso MD Plastic Surgery Inpatient Team Pager #[phone] Jesús Mcgowan PA - 02/09/2022 6:06 AM [...] of Left superior gluteal artery via R INFORMATION SERVICES MANAGER access. Last Value 24 Hour Range Temperature 37.5 ??C (99.5 ??F) Temp: [36.2 ??C (97.2 ??F)-37.9 ??C (100.2 ??F)] Heart Rate (!) 115 Heart Rate: [85-138] Blood Pressure 142/75 BP: -- Respiratory Rate 26 Resp: [12-29] SpO2 100 % SpO2: [96 %-100 %] Physical Exam GEN No distress, A&O CARDS Acyanotic, Right INFORMATION SERVICES MANAGER without hematoma/induration, right DP 2+ LUNGS Non-labored [...] Value Ref Range T&S only valid at [facility] Hosp Assessment: 31 y.o. male with history [...] and left superior gluteal artery via R INFORMATION SERVICES MANAGER access. Last transfusion of 1 unit PRBC [...] updated and patient is medically appropriate. Pager: [phone] Amberly Hardy OT 02/08/2022 Occupational Therapy Rehabilitation [...] Oral BID Rogers Solano APRN 20g at 07/11/22 1204 ??? polyethylene glycoL (Miralax) packet 17 g 17 g Oral BID Rogers Solano, INSULATION WORKER ??? heparin (porcine) (5,000 units/1 mL) subcutaneous injection 7,500 Units 7,500 Units NpiagaiqrzseI7Y [place] Rogers Solano, INSULATION WORKER ??? alteplase (Cathflo) injection 1-4 mg 1-4 mL INTRA-CATHETER Once in dialysis PRN Collette Rivas PA 2.4 mg at 02/07/22 0520 ??? heparin (porcine) (1,000 units/mL) injection 1,000-10,000 Units 1,000-10,000 Units FmpxnccwwmvctY7W PRN Angelina Reynoso MD ??? bicarbonate CRRT [...] 0.2 mg Intravenous Q2H PRN Rogers Solano, INSULATION WORKER ??? HYDROmorphone (Dilaudid) (1 mg/mL) in sodium chloride 0.9% 50 mL RIGGER THIRD infusion Intravenous RIGGER THIRD Only Rogers Solano, INSULATION WORKER 1 mL/hr at 02/07/22 1534 50 mg [...] Q1 Min PRN Danielle Ramirez MD ??? RIGGER THIRD hutton Intravenous Continuous PRN Danielle Ramirez MD ??? HYDROmorphone (mg) RIGGER THIRD shift total and Settings verification Intravenous 2 Times Daily- RIGGER THIRD Shift Total Danielle Ramirez MD ??? vancomycin [...] bolus injection (Anesthesia) Intravenous PRN Anthony Turner HORSE RACE TIMER 10 mg at 02/06/22 1420 ??? lactated ringers infusion Intravenous Continuous PRN Anthony Turner CRNA New Bag at 02/06/22 1239 ??? PHENYLephrine (Rustam-Synephrine) (80 mcg/mL) in sodium chloride 0.9% 250 mL infusion Intravenous Continuous PRN Anthony Turner CRNA 15 mL/hr at 02/06/22 1433 20 mcg/min at 02/06/22 1433 ??? HYDROmorphone (Dilaudid) (2 mg/mL) multi-dose injection solution Intravenous PRN Anthony Turner HORSE RACE TIMER 1 mg at 02/06/22 1439 Recent Results [...] Abnormal Polychromasia Present >5/HPF Ovalocytes 1-5 /HPF [place] Cells 1-5 /HPF Toxic Granulation Present BLOOD [...] 126 65 - 199 mg/dL Vidhya Peñaloza #[id number] Associated attestation - Cecilio Gee MD - [...] the MICU 01/23 s/p [place] arrest at [facility] in the setting ofbeing down for [...] control pain - pain control: acetaminophen, D. RIGGER THIRD - PRN Dilaudid for breakthrough pain - [...] Specialist in Neurologic Physical Therapy Inpatient/outpatient Rehab [facility] Parrish Betancourt MD - 02/08/2022 8:39 [...] was initially admitted to MICU 01/23 at [facility] after he was found down following [...] any questions regarding this consult, please page [phone] if you have any further questions. [X] Consult service to continue to follow [] Consult service to sign off Collette Dye MD, PGY2 Acute Care Surgery Team pager [phone] SURGICAL ATTENDING NOTE: Pt seen and examined [...] Vinod Prasad PA-C Interventional Radiology IR Provider #[id number] Bam Bahena - 02/08/2022 7:31 AM EDT [...] to the MICU 01/23??s/p [place] arrest at [facility] in the setting of being down [...] HD line rewired after TPA failed. Increased RIGGER THIRD then went down on it. 2 units [...] difficult to control pain - Acetaminophen, D. RIGGER THIRD - PRN Dilaudid for breakthrough pain - [...] mg/mL) in sodium chloride 0.9% 50 mL RIGGER THIRD infusion ??? heparin (porcine) (1,000 units/mL) injection [...] (Narcan) (0.4 mg/mL) injection 0.2 mg ??? RIGGER THIRD hutton ??? HYDROmorphone (mg) RIGGER THIRD shift total and Settings verification ??? vancomycin [...] at this time. He is using his RIGGER THIRD as demonstrated. Natalya Amador RN - 02/07/2022 6:48 PM EDT OUTCOME EVALUATION NOTE: OUTCOME SUMMARY: Pt stated increased pain this am, and received Dilaudid 0.2 mg for BTP, and increase on RIGGER THIRD, statingpain 05/10 to the left hip. With the one IV dose of Dilaudid and increase pt stated better pain, andwas unable to verbalize a number, staring out into space or closing eyes during a conversation,. Pt's RIGGER THIRD was then decreased and during the decrease [...] mg/mL) in sodium chloride 0.9% 50 mL RIGGER THIRD infusion ??? heparin (porcine) (1,000 units/mL) injection [...] (Narcan) (0.4 mg/mL) injection 0.2 mg ??? RIGGER THIRD hutton ??? HYDROmorphone (mg) RIGGER THIRD shift total and Settings verification ??? vancomycin [...] (02/06/22 1153) ??? dextrose 5% Stopped (02/07/22 0449) OBJECTIVE: Temp: [36.3 ??C (97.3 ??F)-37.3 ??C [...] was initially admitted to MICU 01/23 at [facility] after he was found down following [...] 95 % SpO2: [91 %-100 %] 02/06 701 - 02/07 0700 In: 7473.8 [P.O.:730; I.V.:4980] [...] any questions regarding this consult, please page [phone] if you have any further questions. [X] [...] bowel tones EXT Minimal oozing around R INFORMATION SERVICES MANAGER puncture site dressing, no hematoma. Distal pulses [...] any questions or concerns. Garret Jeter DO [facility] Interventional Radiology Jayme Armstrong MD - 02/07/2022 [...] the MICU 01/23 s/p [place] arrest at [facility] in the setting ofbeing down for [...] control pain - pain control: acetaminophen, D. RIGGER THIRD - PRN Dilaudid for breakthrough pain - [...] 10/10 through most of the night, dilaudid RIGGER THIRD continues with PRN pushes for break through [...] dressing change, manage bleeding L thigh fasciotomy [id number], medicated with Hydromorphone 1 mg by Jeanette [...] the MICU 01/23 s/p [place] arrest at [facility] in the setting ofbeing down for [...] this interval not displayed. INR Recent Labs 02/06/22 0935 02/06/22 0616 02/06/22 0050 02/05/22 2035 01/31/22 [...] control pain - pain control: acetaminophen, D. RIGGER THIRD ?? 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 Jayme Armstrong MD Jeanette Escamilla APRN - 02/06/2022 10:40 AM EDT ICU Transfer [...] down-time, complaining of LUE pain. On-route to [facility] via EMS had a Vtach arrest. On arrival to OSH he was noted to have potassium of 7.8. He received multiple doses of sodium bicarb, calcium gluconate, and insulin/D10 and his potassium improved to 5.4 prior to transport. On arrival to [facility] K was again elevated at 7.6 with [...] Found to be COVID-positive. After arrival to [facility] pt was able to be weaned to minimal oxygenation support and CT chest was clear apart from partial collapse of LLL and dependent atelectasis. COVID therapies such as decadron were held due to preserved oxygenation. He did remain intubated through 01/26, not because of hypoxia, but to facilitate return OR trips and during a time of hemodynamic instability. ?? ALTHEA requiring FIGURE CLERK: Given his multisystem organ failure and significant [...] 01/30. He was transitioned to a hydromorphone RIGGER THIRD on 02/01. ?? C Difficile infection: Persistent [...] Neurology - Pain control: ?? acetaminophen, D. RIGGER THIRD ?? PRN Dilaudid for breakthrough pain ?? [...] of his gluteus. 1 square dressing of Sedan was placed at this aspect. 3 square [...] support at this time. Halle Holloway MD Dunia Han DO - 02/06/2022 7:30 AM EDT Critical [...] and set appropriately. Frequent visual assessments Surveillance: [place] Critical Care Monitor Patient-specific fall prevention interventions [...] mg/mL) in sodium chloride 0.9% 50 mL RIGGER THIRD infusion ??? HYDROmorphone (Dilaudid) (1 mg/mL) injection syringe 1 mg ??? sevelamer carbonate (Renvela) tablet 1,600 mg ??? diphenhydrAMINE (Benadryl) (50 mg/mL) injection 25 mg ??? prochlorperazine (Compazine) (5 mg/mL) injection 5 mg ??? ondansetron (pf) (Zofran) (2 mg/mL) injection 4 mg ??? naloxone (Narcan) (0.4 mg/mL) injection 0.2 mg ??? RIGGER THIRD hutton ??? HYDROmorphone (mg) RIGGER THIRD shift total and Settings verification ??? 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 Dania Thomas MD Nephrology Pager: [phone] Summer Robertson RN - 02/05/2022 3:35 PM [...] or concerns. Lilibeth Medina, PT, DPT Pager: [phone] 02/05/22 Inpatient Rehabilitation Department Amberly Hardy OT [...] evaluation as able and when appropriate. Pager: [phone] Amberly Hardy OT 02/05/2022 Occupational Therapy Rehabilitation [...] bridge Communicated nutrition recs to Medicine pager #[phone] Visualized patient for overt cachectic appearance: no [...] d/t fluid status Charlotte Castañeda RD Pager: [phone] Dilcia Lopez MD - 02/05/2022 9:56 AM [...] the past 24 hour(s)) GC Gene Amp ([facility]/CGP/APD/NL) Urine Specimen: Urine Result Value Ref Range GC Gene Amp Negative Negative GC Source Urine Chlamydia Gene Amp ([facility]/CGP/APD/NL) Urine Specimen: Urine Result Value Ref Range [...] Value Ref Range T&S only valid at [facility] Hosp Prepare RBC Result Value Ref Range Dispensed? Yes Hemoglobin Result Value Ref Range Hemoglobin 7.0 (L) 13.7 - 16.5 g/dL Microbiology: Microbiology Results (Last 30 days) Procedure Component Value Units Date/Time GC Gene Amp ([facility]/CGP/APD/[facility]) Urine [[id number]] Collected: 02/04/221619 Lab Status: Final result Specimen: Urine Updated: 02/05/22641 GC Gene Amp Negative Comment: The only FDA approved specimen types for this assay are cervical, vaginal, urethral and urine. Non-FDA approved sources are eye, throat and rectal and have been internally validated. GC Source Urine Chlamydia Gene Amp ([facility]/P/APD/[facility]) Urine [[id number]] Collected: 02/04/221619 Lab Status: Final result Specimen: Urine Updated: 02/05/22641 Chlamydia Gene Amp Negative Comment: The only FDA approved specimen types for this assay are cervical, vaginal, urethral and urine. Non-FDA approved sources are eye, throat and rectal and have been internally validated. Chlamydia Source Urine C. Difficile Screen [[id number]] (Abnormal) Collected: 02/01/22 1355 Lab Status: Final [...] or approval by Infection Prevention. Blood culture [[id number]] Collected: 02/01/22 0635 Lab Status: Preliminary result Specimen: Blood Updated: 02/04/22 1502 Blood Culture No growth at 3 days. Blood culture [[id number]] Collected: 02/01/22 0625 Lab Status: Preliminary result Specimen: Blood Pediatric Updated: 02/04/22 1502 Blood Culture No growth at 3 days. Blood culture [[id number]] Collected: 01/28/22 0345 Lab Status: Final result Specimen: Blood Updated: 02/02/22 0701 Blood Culture No growth at 5 days. MRSA PCR [[id number]] Collected: 01/24/22 1310 Lab Status: Final result Specimen: Nasopharyngeal Swab Updated: 01/25/22 2224 MRSA Result Negative MRSA Interp -- Negative for methicillin-resistant Staphylococcus aureus (MRSA) This test was performed using the GeneDistractifypert?? Dx System and the Xpert MRSA Assay. The MRSA target DNA was not detected. The sample processing control and probe check were valid. The performance of this test was determined by the [facility] Molecular Pathology Laboratory. It has been cleared by the U.S. Food and Drug Administration for clinical use. Comment: [VERIFIED DATE]01.25.22 Verified By:Alfonso Soto (Electronic Signature) MRSA PCR [[id number]] Collected: 01/23/22 1247 Lab Status: Final result [...] of this test was determined by the [facility] Molecular Pathology Laboratory. It has been cleared by the U.S. Food and Drug Administration for clinical use. Comment: [VERIFIED DATE]01.25.22 Verified By:Nora Shay (Electronic Signature) Lower Respiratory Culture Tracheal Aspirate [[id number]] (Abnormal) (Susceptibility) Collected: 01/23/22 1150 Lab Status: [...] Sensitive [1] Gentamicin is not appropriate for [place]-therapy. [2] Oxacillin (methicillin) susceptibility is a surrogate for the oral and parenteral cephalosporins, beta-lactam combination agents (amoxicillin-clavulanate, ampicillin-sulbactam and piperacillin-tazobactam) and carbapenem agents. It is NOT a surrogate for penicillin, ampicillin or piperacillin susceptibility. Linear View Blood culture [[id number]] Collected: 01/23/22 0600 Lab Status: Final result Specimen: Blood Updated: 01/28/22 0701 Blood Culture No growth at 5 days. Blood culture [[id number]] Collected: 01/23/22 0126 Lab Status: Final result Specimen: Blood Updated: 01/28/22 0701 Blood Culture No growth at 5 days. COVID-19 PCR [[id number]] (Abnormal) Collected: 01/23/22 0044 Lab Status: Final [...] diagnosis of COVID-19 is performed using the Smart Balloon SARS-CoV-2 Assay as authorized by the FDA Emergency Use Authorization (EUA). This EUA assay is intended for In-vitro Diagnostic (IVD) use with respiratory specimens such as nasopharyngeal swabs collected from individuals during the acute phase of infection. This assay is performed based on the instructions for use provided by [employer] and additional guidance provided by CDC and FDA. Testing is performed in the [facility] within the Department of Pathology and Laboratory Medicine at [facility], certified under the Clinical Laboratory Improvement [...] fact sheets at the following FDA website: https://www.fda.gov/medical-devices/yuhxuuxwcuu-nwdkdgz-4022-hensm-01-beqxkbsqo- itl-wzfvnvqbvzrvcr-ibmptac-devices/tiyfx-tuhvnzwzykc-addp SARS-Cov-2 RNA Source Trach Asp MRSA PCR [[id number]] Collected: 01/23/22 0044 Lab Status: Final result [...] of this test was determined by the [facility] Molecular Pathology Laboratory. It has been cleared [...] who have questions please contact the health care associate that requested your imaging first. Head wo Contrast (Generic) (Exam End: 01/23/2022 3:58 AM) Impression Globi pallidi infarcts. Mild cerebral edema. Thank you for letting us participate in the care of this patient. If you are a health care provider and have any questions regarding this report, please contact the number below. For patients who have questions please contact the health care associate that requested your imaging first. Abdomen 1 view (Generic) (Exam End: 01/23/2022 [...] who have questions please contact the health care associate that requested your imaging first. Lower Extremity wo Contrast Left (Generic) (Exam [...] who have questions please contact the health care associate that requested your imaging first. Chest wo Contrast (Generic) (Exam End: 01/23/2022 3:58 AM) Impression FINDINGS/IMPRESSION: Airways: Endotracheal tube tip 3.1 cm above the maia. Lungs/Pleura: Partial collapse of the LLL dorsally/medially. Mild dependent atelectasis bilaterally. Mediastinum/Kolotn: Unremarkable. Cardiac/Vasculature: Unremarkable. Included Upper Abdomen: Esophagogastric [...] who have questions please contact the health care associate that requested your imaging first. Upper Extremity [...] who have questions please contact the health care associate that requested your imaging first. Forearm Left [...] who have questions please contact the health care associate that requested your imaging first. Chest One [...] who have questions please contact the health care associate that requested your imaging first. Femur 2 views Left (Generic) (Exam End: 01/23/2022 2:04 PM) Impression No significant osseous finding. Thank you for letting us participate in the care of this patient. If you are a health care provider and have any questions regarding this report, please contact the number below. For patients who have questions please contact the health care associate that requested your imaging first. Tibia Fibula Left (Generic) (Exam End: 01/23/2022 2:04 PM) Impression No bony abnormality seen. Thank you for letting us participate in the care of this patient. If you are a health care provider and have any questions regarding this report, please contact the number below. For patients who have questions please contact the health care associate that requested your imaging first. Chest One View (Exam End: 01/23/2022 4:54 [...] who have questions please contact the health care associate that requested your imaging first. Brain wo Contrast (Exam End: 01/24/2022 4:27 PM) Impression Acute globi pallidi infarctions. Scattered punctate infarctions in the cerebellar hemispheres. Thank you for letting us participate in the care of this patient. If you are a health care provider and have any questions regarding this report, please contact the number below. For patients who have questions please contact the health care associate that requested your imaging first. Angiogram [place] (Exam End: 01/24/2022 11:32 PM) Impression Normal appearance of the large and medium size arteries of the head and neck Thank you for letting us participate in the care of this patient. If you are a health care provider and have any questions regarding this report, please contact the number below. For patients who have questions please contact the health care associate that requested your imaging first. Angiogram Carotids [...] who have questions please contact the health care associate that requested your imaging first. Chest Abdomen [...] who have questions please contact the health care associate that requested your imaging first. Assessment: Alix [...] to this Complex pain needs - adjusted RIGGER THIRD yesterday with improvement Leukocytosis now down-trending with [...] and restarted precautions ?? # ALTHEA requiring FIGURE CLERK; now on iHD # Hyponatremia (volume overloaded, not eating) # Hyperkalemia - Nephrology following - 1.5L fluid restriction in place ?? # Pain Control, c/b Chronic Opiate Abuse - adjusted RIGGER THIRD - consider subboxone/BIT once more stable ad [...] mg/mL) in sodium chloride 0.9% 50 mL RIGGER THIRD infusion ??? HYDROmorphone (Dilaudid) (1 mg/mL) injection syringe 1 mg ??? sevelamer carbonate (Renvela) tablet 1,600 mg ??? diphenhydrAMINE (Benadryl) (50 mg/mL) injection 25 mg ??? prochlorperazine (Compazine) (5 mg/mL) injection 5 mg ??? ondansetron (pf) (Zofran) (2 mg/mL) injection 4 mg ??? naloxone (Narcan) (0.4 mg/mL) injection 0.2 mg ??? RIGGER THIRD hutton ??? HYDROmorphone (mg) RIGGER THIRD shift total and Settings verification ??? vancomycin [...] mg/mL) in sodium chloride 0.9% 50 mL RIGGER THIRD infusion ??? HYDROmorphone (Dilaudid) (1 mg/mL) injection syringe 1 mg ??? sevelamer carbonate (Renvela) tablet 1,600 mg ??? diphenhydrAMINE (Benadryl) (50 mg/mL) injection 25 mg ??? prochlorperazine (Compazine) (5 mg/mL) injection 5 mg ??? ondansetron (pf) (Zofran) (2 mg/mL) injection 4 mg ??? naloxone (Narcan) (0.4 mg/mL) injection 0.2 mg ??? RIGGER THIRD hutton ??? HYDROmorphone (mg) RIGGER THIRD shift total and Settings verification ??? vancomycin [...] in the left wrist, less somnolent Changed RIGGER THIRD 4 hour limit and increased dose from [...] Component Value Units Date/Time C. Difficile Screen [[id number]] (Abnormal) Collected: 02/01/22 1355 Lab Status: Final [...] or approval by Infection Prevention. Blood culture [[id number]] Collected: 02/01/22 0635 Lab Status: Preliminary result Specimen: Blood Updated: 02/04/22 1502 Blood Culture No growth at 3 days. Blood culture [[id number]] Collected: 02/01/22 0625 Lab Status: Preliminary result Specimen: Blood Pediatric Updated: 02/04/22 1502 Blood Culture No growth at 3 days. Blood culture [[id number]] Collected: 01/28/22 0345 Lab Status: Final result Specimen: Blood Updated: 02/02/22 0701 Blood Culture No growth at 5 days. MRSA PCR [[id number]] Collected: 01/24/22 1310 Lab Status: Final result Specimen: Nasopharyngeal Swab Updated: 01/25/22 2224 MRSA Result Negative MRSA Interp -- Negative for methicillin-resistant Staphylococcus aureus (MRSA) This test was performed using the GeneDistractifypert?? Dx System and the Xpert MRSA Assay. The MRSA target DNA was not detected. The sample processing control and probe check were valid. The performance of this test was determined by the [facility]. It has been cleared by the U.S. Food and Drug Administration for clinical use. Comment: [VERIFIED DATE]01.25.22 Verified By:Alfonso Soto (Electronic Signature) MRSA PCR [[id number]] Collected: 01/23/22 1247 Lab Status: Final result Specimen: Nasopharyngeal Swab Updated: 01/25/22 1023 MRSA Result Negative MRSA Interp -- Negative for methicillin-resistant Staphylococcus aureus (MRSA) This test was performed using the GeneDistractifypert?? Dx System and the Xpert MRSA Assay. The MRSA target DNA was not detected. The sample processing control and probe check were valid. The performance of this test was determined by the [facility]. It has been cleared by the U.S. Food and Drug Administration for clinical use. Comment: [VERIFIED DATE]01.25.22 Verified By:Nora Shay (Electronic Signature) Lower Respiratory Culture Tracheal Aspirate [[id number]] (Abnormal) (Susceptibility) Collected: 01/23/22 1150 Lab Status: [...] Sensitive [1] Gentamicin is not appropriate for [place]-therapy. [2] Oxacillin (methicillin) susceptibility is a surrogate for the oral and parenteral cephalosporins, beta-lactam combination agents (amoxicillin-clavulanate, ampicillin-sulbactam and piperacillin-tazobactam) and carbapenem agents. It is NOT a surrogate for penicillin, ampicillin or piperacillin susceptibility. Linear View Blood culture [[id number]] Collected: 01/23/22 0600 Lab Status: Final result Specimen: Blood Updated: 01/28/22 0701 Blood Culture No growth at 5 days. Blood culture [[id number]] Collected: 01/23/22 0126 Lab Status: Final result Specimen: Blood Updated: 01/28/22 0701 Blood Culture No growth at 5 days. COVID-19 PCR [[id number]] (Abnormal) Collected: 01/23/22 0044 Lab Status: Final [...] diagnosis of COVID-19 is performed using the Smart Balloon SARS-CoV-2 Assay as authorized by the FDA Emergency Use Authorization (EUA). This EUA assay is intended for In-vitro Diagnostic (IVD) use with respiratory specimens such as nasopharyngeal swabs collected from individuals during the acute phase of infection. This assay is performed based on the instructions for use provided by [employer] and additional guidance provided by [facility] and FDA. Testing is performed in the [facility] within the Department of Pathology and Laboratory Medicine at [facility], certified under the Clinical Laboratory Improvement [...] fact sheets at the following FDA website: https://www.fda.gov/medical-devices/yheuhxodrka-uouuyxe-2282-nvink-06-sfhvpkuru- jyo-hvjjctbtyhnsle-ouaiupp-devices/rsqft-hqgvvovrlww-icdp SARS-Cov-2 RNA Source Trach Asp MRSA PCR [[id number]] Collected: 01/23/22 0044 Lab Status: Final result [...] of this test was determined by the [facility]. It has been cleared [...] who have questions please contact the health care associate that requested your imaging first. Head wo Contrast (Generic) (Exam End: 01/23/2022 3:58 AM) Impression Globi pallidi infarcts. Mild cerebral edema. Thank you for letting us participate in the care of this patient. If you are a health care provider and have any questions regarding this report, please contact the number below. For patients who have questions please contact the health care associate that requested your imaging first. Abdomen 1 view (Generic) (Exam End: 01/23/2022 [...] who have questions please contact the health care associate that requested your imaging first. Lower Extremity wo Contrast Left (Generic) (Exam [...] who have questions please contact the health care associate that requested your imaging first. Chest wo Contrast (Generic) (Exam End: 01/23/2022 [...] who have questions please contact the health care associate that requested your imaging first. Upper Extremity [...] who have questions please contact the health care associate that requested your imaging first. Forearm Left [...] who have questions please contact the health care associate that requested your imaging first. Chest One [...] who have questions please contact the health care associate that requested your imaging first. Femur 2 views Left (Generic) (Exam End: 01/23/2022 2:04 PM) Impression No significant osseous finding. Thank you for letting us participate in the care of this patient. If you are a health care provider and have any questions regarding this report, please contact the number below. For patients who have questions please contact the health care associate that requested your imaging first. Tibia Fibula Left (Generic) (Exam End: 01/23/2022 2:04 PM) Impression No bony abnormality seen. Thank you for letting us participate in the care of this patient. If you are a health care provider and have any questions regarding this report, please contact the number below. For patients who have questions please contact the health care associate that requested your imaging first. Chest One View (Exam End: 01/23/2022 4:54 [...] who have questions please contact the health care associate that requested your imaging first. Brain wo Contrast (Exam End: 01/24/2022 4:27 PM) Impression Acute globi pallidi infarctions. Scattered punctate infarctions in the cerebellar hemispheres. Thank you for letting us participate in the care of this patient. If you are a health care provider and have any questions regarding this report, please contact the number below. For patients who have questions please contact the health care associate that requested your imaging first. Angiogram [place] (Exam End: 01/24/2022 11:32 PM) Impression Normal appearance of the large and medium size arteries of the head and neck Thank you for letting us participate in the care of this patient. If you are a health care provider and have any questions regarding this report, please contact the number below. For patients who have questions please contact the health care associate that requested your imaging first. Angiogram Carotids [...] who have questions please contact the health care associate that requested your imaging first. Chest Abdomen [...] Queen MD discussed impression #1 with Agnieszka óLpez APRN on 01/30/2022 2:56 PM. Preliminary report [...] who have questions please contact the health care associate that requested your imaging first. Assessment: Alix [...] to this Complex pain needs - adjusted RIGGER THIRD Leukocytosis now down-trending with treatment of c dif. Also requiring prophylaxis abx with cefazolin until fasciotomy closures. Duplexes were ordered for concern for DVT however these were not able to be completed due to Vac continue RIGGER THIRD Plan: #Rhabdomyolysis??d/t LUE??+ LLE??Compartment Syndrome??with hyperkalemic cardiac [...] and restarted precautions ?? # ALTHEA requiring FIGURE CLERK; now on iHD # Hyponatremia (volume overloaded, not eating) # Hyperkalemia - Nephrology following - 1.5L fluid restriction in place ?? # Pain Control, c/b Chronic Opiate Abuse - adjusted RIGGER THIRD -on patient controlled anesthesia ? Physical Therapy [...] EDT NEPHROLOGY PROGRESS NOTE Reason for consult: ALTHEA/FIGURE CLERK Baseline creatinine: ~0.7 (as of 04/2021) Interval [...] extent possible. Dania Thomas MD Nephrology Pager: [phone] Phoenix Dhillon RN - 02/04/2022 6:48 AM EDT OUTCOME EVALUATION NOTE: OUTCOME SUMMARY: Patient remains alert and oriented. He has been maxing out his RIGGER THIRD pumps limit and increased number of attempts [...] 250cc SS output over last 24 hours. RIGGER THIRD for pain control. Phos 7.5, Na 120, Cr 5.55, K 5.7 ALTHEA requiring FIGURE CLERK, now iHD this AM Patient denies chest [...] mg/mL) in sodium chloride 0.9% 50 mL RIGGER THIRD infusion ??? diphenhydrAMINE (Benadryl) (50 mg/mL) injection 25 mg ??? prochlorperazine (Compazine) (5 mg/mL) injection 5 mg ??? ondansetron (pf) (Zofran) (2 mg/mL) injection 4 mg ??? naloxone (Narcan) (0.4 mg/mL) injection 0.2 mg ??? RIGGER THIRD hutton ??? HYDROmorphone (mg) RIGGER THIRD shift total and Settings verification ??? vancomycin [...] Component Value Units Date/Time C. Difficile Screen [[id number]] (Abnormal) Collected: 02/01/22 1355 Lab Status: Final [...] or approval by Infection Prevention. Blood culture [[id number]] Collected: 02/01/22 0635 Lab Status: Preliminary result Specimen: Blood Updated: 02/03/22 1501 Blood Culture No growth at 2 days. Blood culture [[id number]] Collected: 02/01/22 0625 Lab Status: Preliminary result Specimen: Blood Pediatric Updated: 02/03/22 1501 Blood Culture No growth at 2 days. Blood culture [[id number]] Collected: 01/28/22 0345 Lab Status: Final result Specimen: Blood Updated: 02/02/22 0701 Blood Culture No growth at 5 days. MRSA PCR [[id number]] Collected: 01/24/22 1310 Lab Status: Final result Specimen: Nasopharyngeal Swab Updated: 01/25/224 MRSA Result Negative MRSA Interp -- Negative for methicillin-resistant Staphylococcus aureus (MRSA) This test was performed using the GeneXpert?? Dx System and the Xpert MRSA Assay. The MRSA target DNA was not detected. The sample processing control and probe check were valid. The performance of this test was determined by the [facility]. It has been cleared by the U.S. Food and Drug Administration for clinical use. Comment: [VERIFIED DATE]01.25.22 Verified By:Alfonso Soto (Electronic Signature) MRSA PCR [[id number]] Collected: 01/23/22 1247 Lab Status: Final result [...] of this test was determined by the [facility]. It has been cleared by the U.S. Food and Drug Administration for clinical use. Comment: [VERIFIED DATE]01.25.22 Verified By:Nora Shay (Electronic Signature) Lower Respiratory Culture Tracheal Aspirate [[id number]] (Abnormal) (Susceptibility) Collected: 01/23/22 1150 Lab Status: [...] Sensitive [1] Gentamicin is not appropriate for [place]-therapy. [2] Oxacillin (methicillin) susceptibility is a surrogate for the oral and parenteral cephalosporins, beta-lactam combination agents (amoxicillin-clavulanate, ampicillin-sulbactam and piperacillin-tazobactam) and carbapenem agents. It is NOT a surrogate for penicillin, ampicillin or piperacillin susceptibility. Linear View Blood culture [[id number]] Collected: 01/23/22 0600 Lab Status: Final result Specimen: Blood Updated: 01/28/22 0701 Blood Culture No growth at 5 days. Blood culture [[id number]] Collected: 01/23/22 0126 Lab Status: Final result Specimen: Blood Updated: 01/28/22 0701 Blood Culture No growth at 5 days. COVID-19 PCR [[id number]] (Abnormal) Collected: 01/23/22 0044 Lab Status: Final [...] diagnosis of COVID-19 is performed using the Smart Balloon SARS-CoV-2 Assay as authorized by the FDA Emergency Use Authorization (EUA). This EUA assay is intended for In-vitro Diagnostic (IVD) use with respiratory specimens such as nasopharyngeal swabs collected from individuals during the acute phase of infection. This assay is performed based on the instructions for use provided by [employer] and additional guidance provided by CDC and FDA. Testing is performed in the [facility] within the Department of Pathology and Laboratory Medicine at [facility], certified under the Clinical Laboratory Improvement [...] fact sheets at the following FDA website: https://www.fda.gov/medical-devices/vxehwdbcucp-chahysd-9145-wjhin-33-absxrxnuh- uhh-jpiuukoimunxru-zulqmzq-devices/xlwrc-nnyvxslpbiw-zevo SARS-Cov-2 RNA Source Trach Asp MRSA PCR [[id number]] Collected: 01/23/22 0044 Lab Status: Final result [...] of this test was determined by the [facility]. It has been cleared [...] who have questions please contact the health care associate that requested your imaging first. Head wo Contrast (Generic) (Exam End: 01/23/2022 3:58 AM) Impression Globi pallidi infarcts. Mild cerebral edema. Thank you for letting us participate in the care of this patient. If you are a health care provider and have any questions regarding this report, please contact the number below. For patients who have questions please contact the health care associate that requested your imaging first. Abdomen 1 view (Generic) (Exam End: 01/23/2022 [...] who have questions please contact the health care associate that requested your imaging first. Lower Extremity wo Contrast Left (Generic) (Exam [...] who have questions please contact the health care associate that requested your imaging first. Chest wo Contrast (Generic) (Exam End: 01/23/2022 [...] who have questions please contact the health care associate that requested your imaging first. Upper Extremity [...] who have questions please contact the health care associate that requested your imaging first. Electronically signed by: [facility] Addison [facility] ([phone]), at 01/23/2022 4:58 AM XR Forearm Left [...] who have questions please contact the health care associate that requested your imaging first. Electronically signed by: Rex Addison [facility] ([phone]), at 01/23/2022 7:14 AM XR Chest One [...] who have questions please contact the health care associate that requested your imaging first. Femur 2 views Left (Generic) (Exam End: 01/23/2022 2:04 PM) Impression No significant osseous finding. Thank you for letting us participate in the care of this patient. If you are a health care provider and have any questions regarding this report, please contact the number below. For patients who have questions please contact the health care associate that requested your imaging first. Tibia Fibula Left (Generic) (Exam End: 01/23/2022 2:04 PM) Impression No bony abnormality seen. Thank you for letting us participate in the care of this patient. If you are a health care provider and have any questions regarding this report, please contact the number below. For patients who have questions please contact the health care associate that requested your imaging first. Chest One View (Exam End: 01/23/2022 4:54 [...] who have questions please contact the health care associate that requested your imaging first. Brain wo Contrast (Exam End: 01/24/2022 4:27 PM) Impression Acute globi pallidi infarctions. Scattered punctate infarctions in the cerebellar hemispheres. Thank you for letting us participate in the care of this patient. If you are a health care provider and have any questions regarding this report, please contact the number below. For patients who have questions please contact the health care associate that requested your imaging first. Angiogram [place] (Exam End: 01/24/2022 11:32 PM) Impression Normal appearance of the large and medium size arteries of the head and neck Thank you for letting us participate in the care of this patient. If you are a health care provider and have any questions regarding this report, please contact the number below. For patients who have questions please contact the health care associate that requested your imaging first. Angiogram Carotids [...] who have questions please contact the health care associate that requested your imaging first. Chest Abdomen [...] who have questions please contact the health care associate that requested your imaging first. Assessment: Alix [...] to be completed due to Vac continue RIGGER THIRD Plan: #Rhabdomyolysis??d/t LUE??+ LLE??Compartment Syndrome??with hyperkalemic cardiac [...] longer requires precautions ?? # ALTHEA requiring FIGURE CLERK; now on iHD # Hyponatremia (volume overloaded, [...] EDT NEPHROLOGY PROGRESS NOTE Reason for consult: ALTHEA/FIGURE CLERK Baseline creatinine: ~0.7 (as of 04/2021) Interval [...] with meals. Dania Thomas MD Nephrology Pager: [phone] Amberly Hardy OT - 02/03/2022 1:09 PM EDT Occupational Therapy Note Document Type: contact Total Minutes, Occupational Therapy: 0 Reason: Patient with low Hgb, 5.6. Defer OT. Will follow up as able and when appropriate. Pager: [phone] Amberly Hardy OT 02/03/2022 Occupational Therapy Rehabilitation [...] Communicated nutrition recs to provider Medicine pager #[phone]. Active Orders Diet NPO diet (Give Meds) [...] 01/28/2022 TRIG 359 01/26/2022 CRP <3.0 04/26/2021 [id number] 02/03/2022 SFOLATE 3.9 (L) 02/03/2022 IRON [...] encounter: 116.9 kg (257 lb 11.5 oz). [place] Body Weight: 81 kg Usual Body Weight: [...] sedation and extubated. Pt now on shift FIGURE CLERK. TF frequently held for OR, have not advanced past trickle TF. TF d/c today, no access at this time. 01/25: Patient intubated and sedated. Pt to OR today for wound vacs. 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 ALTHEA requiring FIGURE CLERK, now iHD Patient denies chest pain, shortness [...] mg/mL) in sodium chloride 0.9% 50 mL RIGGER THIRD infusion ??? diphenhydrAMINE (Benadryl) (50 mg/mL) injection 25 mg ??? prochlorperazine (Compazine) (5 mg/mL) injection 5 mg ??? ondansetron (pf) (Zofran) (2 mg/mL) injection 4 mg ??? naloxone (Narcan) (0.4 mg/mL) injection 0.2 mg ??? RIGGER THIRD hutton ??? HYDROmorphone (mg) RIGGER THIRD shift total and Settings verification ??? vancomycin [...] mg/mL) in sodium chloride 0.9% 50 mL RIGGER THIRD infusion ??? diphenhydrAMINE (Benadryl) (50 mg/mL) injection 25 mg ??? prochlorperazine (Compazine) (5 mg/mL) injection 5 mg ??? ondansetron (pf) (Zofran) (2 mg/mL) injection 4 mg ??? naloxone (Narcan) (0.4 mg/mL) injection 0.2 mg ??? RIGGER THIRD hutton ??? HYDROmorphone (mg) RIGGER THIRD shift total and Settings verification ??? fentaNYL [...] for fasciotomy sites. Activity: NWB LIZE, NWB GLENE DVT prophylaxis: Per primary Closure: Wound vacs (L volar forearm 1 white & 2 black, L thigh 2 black) Dressing: WVac as above to -125mmHg Antibiotics: continue ABx until fasciotomy sites closed Nahed Fraser MD 02/02/2022 No future appointments. Dania Thomas MD - 02/02/2022 5:36 PM EDT NEPHROLOGY PROGRESS NOTE Reason for consult: ALTHEA/FIGURE CLERK Baseline creatinine: ~0.7 (as of 04/2021) Interval [...] with meals. Dania Thomas MD Nephrology Pager: [phone] Luzmaria Saavedra RN - 02/02/2022 10:24 AM EDT C. difficile Infection (CDI) Consult Note Reason for Consult: Patient tested positive for C. difficile. Pertinent labs: PCR positive on 02/01/2022 Section of Infectious Disease Treatment Recommendations: For all inpatient cases of C. difficile [facility] Section of Infectious Disease recommends 125 mg of oral vancomycin QID for at least 14 days (10days beyond symptom resolution), even in cases of mlja-aq-mymhexkk disease. For cases of severe C. difficile infection, please call an Infectious Disease consult and consider adding intravenous metronidazole in addition to oral vancomycin. If the patient is on broad- spectrum antibiotics for another indication, consider continuing oral vancomycin for 7 days after the other antibiotics are stopped. For questions regarding treatment please contact the Infectious Disease fellow electronic imaging system operator at pager [phone]. Infection Prevention Recommendations: ? ? Isolation Recommendations- [...] stay is anticipated, consult Infection Prevention (Pager [phone]) to discuss the process for discontinuing S&W [...] a previously positive test. Applicable policies, guidelines: (54396) C. difficile Testing Policy (v.3) Soap & Water Contact Precautions and C. difficile Procedure Standard and Expanded Precautions Policy Precautions for Specific Diseases and Conditions - Job Aid For questions regarding treatment, please contact the Infectious Disease fellow electronic imaging system operator at pager [phone]. For all other questions regarding C. difficile, please contact Infection Prevention at [phone] or pager [phone]. Thank you. Evangelina Flynn MD - 02/02/2022 10:23 AM EDT MICU STAFF PROGRESS NOTE Critical Care Medicine Author: Evangelina Flynn MD Patient seen and examined on critical care rounds and discussed with house staff. Interval Events: Diagnosed with C diff, started on po vanco Anemia slightly worse yesterday, PRBC tx, suspected from oozing HD session ongoing this morning Pain better controlled on RIGGER THIRD Per dad slept well last night, more [...] Ventilator: NA on RA Current Drips: Dilaudid RIGGER THIRD Labs/studies reviewed, notable for: WBC 33, downtrending [...] with leukocytosis now on treatment, pneumonia, and bhlknnenh55 infection (known prior to admission.) Fortunately he is cognitively intact. Active management needs include ongoing pain control which is currently better on dilaudid RIGGER THIRD, need for long-term management of substance use [...] DVTs ordered yesterday and pending NEURO: dilaudid RIGGER THIRD for acute pain currently; long-term suboxone may [...] Alix Holland Age: 31 y.o. Surgery/Issue: LUE, GLENE compartment syndrome s/p fasciotimies, I&D 01/23/22, 01/26/22 (Dr. aGrcia), I&D w/ partial closure 01/29/22 (Dr. Valdovinos), I&D 01/31/22 (Dr. Branch) Attending: Dr. Sanz Date of surgery: 01/31/2022 SUBJECTIVE / INTERVAL HISTORY: AF, tachycardic to the 110s overnight. WBC 30.5 from 30.4 (43.9 early 7/4) Resting comfortably in MICU. Mental status improved, patient conversant. Hgb 7.0 after transfusing 1 unit for Hgb 6.4 yesterday, likely ABLA Started RIGGER THIRD for pain control. Patient denies chest pain, shortness of breath, nausea, vomiting. Covid and c. Diff positive FOCUSED REVIEW OF SYSTEMS: as above. Active Hospital Problems Diagnosis ? ? CEZAR, SHAMAR compartment syndrome s/p fasciotimies, I&D 01/23/22, 01/26/22 [...] mg/mL) in sodium chloride 0.9% 50 mL RIGGER THIRD infusion ??? diphenhydrAMINE (Benadryl) (50 mg/mL) injection 25 mg ??? prochlorperazine (Compazine) (5 mg/mL) injection 5 mg ??? ondansetron (pf) (Zofran) (2 mg/mL) injection 4 mg ??? naloxone (Narcan) (0.4 mg/mL) injection 0.2 mg ??? RIGGER THIRD hutton ??? HYDROmorphone (mg) RIGGER THIRD shift total and Settings verification ??? fentaNYL [...] (1,000 units/mL) injection 1,000-10,000 Units 1,000-10,000 Units TuaafvjgmnsmsC9P PRN Dimas Hernandez MD 2,400 Units at [...] 0.4 mg 0.4 mg Intravenous Once PRN iDmas Hernandez MD ??? heparin (porcine) 50 units/mL [...] mL) subcutaneous injection 5,000 Units 5,000 Units CpzeyzanpdbrM9Z Dimas Santos MD 5,000 Units at 02/01/22 [...] Sanz MD - 02/01/2022 9:11 AM EDT [facility] MICU STAFF PROGRESS NOTE SECTION OF PULMONARY [...] Section of Pulmonary & Critical Care Pager: [phone] Armando, Doc Martinez MD - 02/01/2022 6:45 [...] chloride (CRRT) Stopped (01/30/22814) ??? calcium gluconate 15 mL/hr (02/01/22 012) [...] mEq/L K+, 3 mEq/L Ca++ 5 each (01/31/2246) ??? potassium phos in 0.9% sodium chloride [...] (1,000 units/mL) injection 1,000-10,000 Units 1,000-10,000 Units KgcoadbfxzjrkK6H PRN Dimas Hernandez MD ??? 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 Anticipate trial of intermittent dialysis TuesdayFebruary 02 assuming intake and vital signs remain acceptable. Beck Sanz MD - 01/31/2022 8:51 AM EDT [facility] MICU STAFF PROGRESS NOTE SECTION OF PULMONARY [...] Section of Pulmonary & Critical Care Pager: [phone] Dimas Hernandez MD - 01/31/2022 6:25 AM [...] seen and examined. - Patient transitioned to [facility]. - Chemistries are stable for now. - [...] (1,000 units/mL) injection 1,000-10,000 Units 1,000-10,000 Units CuvbzmkpwmxblY9K PRN Vidhya Peñaloza MD ??? bicarbonate CRRT (NxSTAGE) 3 mEq/L K+, 3 mEq/L Ca++, 5,000 mL Solution 5 each 5 each CRRT Continuous Vidhya Peñaloza MD Held at 01/30/22 0815 ??? potassium phosphate (0.06 mmol/mL) in sodium chloride 0.9% continuous infusion (CRRT) 0-100 mL/hr Intravenous Continuous Vidhya Peñaloza MD Held at 01/30/22 0815 ??? calcium gluconate 15 g in sodium chloride 0.9% 250 mL infusion 5 mL/hr Intravenous Continuous Vidhya Peñaloza MD Held at 01/30/22 0815 ??? fentaNYL (PF) (50 mcg/mL) injection 50 [...] mg 100 mg Oral Daily Agnieszka López INSULATION WORKER 100 mg at ??? ampicillin-sulbactam (Unasyn) 1.5 g vial attach to sodium chloride 0.9% 50 mL Mini-Bag Plus 1.5 g Intravenous Q8H Agnieszka López APRN Stopped at 01/30/22928 ??? acetaminophen (Tylenol) tablet 1,000 mg 1,000 mg Oral Q8H [place] Cristina Hillman, INSULATION WORKER 1,000 mg at 01/30/22 06 ??? polyethylene glycoL (Miralax) packet 17 g 17 g Oral Daily Cristina Hillman, INSULATION WORKER 17 g at 01/29/2257 ??? lidocaine (Lidoderm) 5% patch 3 patch 3 patch Transdermal Q24H Sun Hayden PA 3 patch at 01/29/222211 And ??? lidocaine (Lidoderm) topical patch REMOVAL 1 patch Transdermal Q24H Sun Hayden PA ??? pantoprazole (Protonix) injection 40 mg 40 mg Intravenous Daily Cristina Hillman B, INSULATION WORKER 40 mg at01/30/22916 ??? docusate sodium (Colace) (10 mg/mL) oral liquid 100 mg 100 mg Oral BID Cristina Hillman B, INSULATION WORKER 100 mg at 01/29/222130 And ??? sennosides (Senokot) (1.76 mg/mL) oral liquid 17.6 mg 17.6 mg Oral BID Cristina Hillman B, INSULATION WORKER 17.6 mg at 01/29/222130 ??? naloxone (Narcan) [...] Times Daily - Shift Total Agnieszka López KATERYNA Machado ??? heparin (porcine) 50 units/mL in sodium chloride 0.45% 500 mL infusion 400 Units/hr Intravenous Continuous Rafy Gemma B, INSULATION WORKER 8 mL/hr at 01/29/222130 400 Units/hr at 01/29/222130 ??? glucose (Glutose) 40% oral geL 15-30 g of glucose Buccal Q30 Min PRN Pentland, Gemma B, INSULATION WORKER Or ??? dextrose 10% infusion 250 mL Intravenous Q30 Min PRN Pentcaitlin, Gemma B, INSULATION WORKER Stopped at Or ??? glucagon (Glucagen) (1 mg/mL) injection solution 1 mg 1 mg Intramuscular Q30 Min PRN Pentcaitlin, Gemma B, INSULATION WORKER ??? heparin (porcine) (5,000 units/1 mL) subcutaneous injection 5,000 Units 5,000 Units QbzwtetyartmI2K [facility] Pentland, Gemma B, INSULATION WORKER 5,000 Units at 01/30/22 0611 Recent Results [...] QTC Calculated (Bezet) 418 ms Calculated P Echo 13 degrees Calculated R Echo 31 degrees Calculated T Echo -8 degrees INTERPRETATION Sinus tachycardia Nonspecific T [...] 9 5 - 15 mmol/L Vidhya Peñaloza #[id number] Associated attestation - Jareth Nino MD - 01/30/2022 4:29 PM EDT I discussed patient with the fellow and observed from the doorway in the setting of COVID-19 isolation. 31-year-old male with an uric ALTHEA in the setting of rhabdomyolysis. We will trial prolonged intermittent CRRT over the weekend. [place] for success of this will be tapering fluid intake target 2 to 3 L. If he is able to tolerate this and we are able to manage ongoing metabolic derangements could consider transition to intermittent dialysis by next week should patient remain anuric Beck Sanz MD - 01/30/2022 8:49 AM EDT [facility] MICU STAFF PROGRESS NOTE SECTION OF PULMONARY [...] Section of Pulmonary & Critical Care Pager: [phone] Armando, Doc Martinez MD - 01/30/2022 6:48 [...] NPO after midnight. Activity: NWB LIZE, NWB LLE DVT prophylaxis: [...] 2.7) performed by Sigifredo Garcia MD at [facility] OR ? ? PRO DEBRIDEMENT MUSCLE AND FASCIA 20 SQ CM/< Left 01/26/2022 DEBRIDEMENT SKIN, SUBCU, MUSCLE, UPPER EXTREMITY (WRVU 2.7) performed by Sigifredo Garcia MD at [facility] MAIN OR ??? PRO DECOMP FOREARM, 2 COMPART, W/O DEBRIDE Left 01/23/2022 FASCIOTOMY; FOREARM AND\OR WRIST, FLEXOR & EXTENS. COMP (WRVU 10.79) performed by Sigifredo Garcia MD at [facility] MAIN OR ??? PRO DECOMPRESS ANT/LAT+POST LEG CMPART Left 01/23/2022 FASCIOTOMY, LOWER LEG, ALL COMPARTMENTS (WRVU 7.82) performed by Sigifredo Garcia MD at [facility] MAIN OR ??? PRO INCIS OF HIP/THIGH FASCIA Left 01/23/2022 @FASCIOTOMY,THIGH OR HIP FOR COMPARTMENT SYNDROME (WRVU 12.89) performed by Sigifredo Garcia MD at [facility] OR ??? PRO OPEN TREAT MANDIBLE CONDYLE FX, COMPL 04/27/2013 OPEN TREATMENT, COMPLEX MANDIBLE FX., MULTI APPROACH, W/ FIXATION performed by Kishore Neil MD at [facility] MAIN OR ??? PRO REVISE MEDIAN N/CARPAL TUNNEL SURG Left 01/23/2022 MEDIAN NERVE DECOMPRESSION (CARPAL TUNNEL RELEASE) (WRVU 4.97) performed by Sigifredo Garcia MD at [facility] MAIN OR ??? PRO SEC CLSR SURG WOUND/DEHSN EXTENSIVE/COMPLICATED Left 01/26/2022 SECONDARY CLOSURE SURGICAL WOUND OR DEHISCENCE, EXTENSIVE OR COMPLICATED, UPPER EXTREMITY (WRVU 12.04) performed by Sigifredo Garcia MD at [facility] MAIN OR Social History: Patient lives in [place], [place] with his dad. Home Setup: 2 [address], 2 level home, bedroom on 1st level, bathroom available on 1st level, has a tub shower downstairs. DME:none Baseline ADL/Mobility: Pt reports he was independent w/ aDL's and IADL's, had worked for a [employer]. He enjoys hunting and fishing. He reports he likes [employer] music (when asked) Precautions/Special Considerations: at risk [...] oriented to: person, thought he was at [facility] (reoriented to ), when asked the [...] and measurable assessment of functional outcome. Pager: [phone] JACK JOE OT 01/29/2022 Occupational Therapy Rehabilitation [...] be placed/TF cannot reach goal On shift FIGURE CLERK Suggest Nepro with a goal rate of [...] discuss plan with provider ARLETH Martinez pager #[phone]. All Active TF Orders: Peptamen Intense VHP [...] Other Sites: Wound vac Relevant medications: shift FIGURE CLERK, D10 at 100ml/hr, colace, marinol, folic acid, [...] encounter: 116.7 kg (257 lb 4.4 oz). [place] Body Weight: 81 kg Usual Body Weight: [...] sedation and extubated. Pt now on shift FIGURE CLERK. TF frequently held for OR, have not advanced past trickle TF. TF d/c today, no access at this time. 01/25: Patient intubated and sedated. Pt to OR today for wound vacs. Estimated needs: Calories: 2274-3353 (20-25 kcal/kg IBW) for the first 7-10 days in the ICU Protein: 122 grams (1.5 g/kg IBW) while on shift FIGURE CLERK Average tube feeding provision over past 3 [...] Malnutrition: Not enough data to assess (Keven et olya, BUSTER J Parenteral Enteral Nutr. 2011; 36(3): 273-02) Nutrition to continue to follow up while inpatient Thank you, Charlotte Castañeda RD Pager #:[phone] Meghan Prabhakar, PT - 01/29/2022 10:35 AM [...] 2.7) performed by Sigifredo Garcia MD at [facility] MAIN OR ? ? PRO DEBRIDEMENT MUSCLE AND FASCIA 20 SQ CM/< Left 01/26/2022 DEBRIDEMENT SKIN, SUBCU, MUSCLE, UPPER EXTREMITY (WRVU 2.7) performed by Sigifredo Garcia MD at [facility] MAIN OR ??? PRO DECOMP FOREARM, 2 COMPART, W/O DEBRIDE Left 01/23/2022 FASCIOTOMY; FOREARM AND\OR WRIST, FLEXOR & EXTENS. COMP (WRVU 10.79) performed by Sigifredo Garcia MD at [facility] MAIN OR ??? PRO DECOMPRESS ANT/LAT+POST LEG CMPART Left 01/23/2022 FASCIOTOMY, LOWER LEG, ALL COMPARTMENTS (WRVU 7.82) performed by Sigifredo Garcia MD at [facility] MAIN OR ??? PRO INCIS OF HIP/THIGH FASCIA Left 01/23/2022 @FASCIOTOMY,THIGH OR HIP FOR COMPARTMENT SYNDROME (WRVU 12.89) performed by Sigifredo Garcia MD at [facility] MAIN OR ??? PRO OPEN TREAT MANDIBLE CONDYLE FX, COMPL 04/27/2013 OPEN TREATMENT, COMPLEX MANDIBLE FX., MULTI APPROACH, W/ FIXATION performed by Kishore Neil MD at [facility] MAIN OR ??? PRO REVISE MEDIAN N/CARPAL TUNNEL SURG Left 01/23/2022 MEDIAN NERVE DECOMPRESSION (CARPAL TUNNEL RELEASE) (WRVU 4.97) performed by Sigifredo Garcia MD at [facility] MAIN OR ??? PRO SEC CLSR SURG WOUND/DEHSN EXTENSIVE/COMPLICATED Left 01/26/2022 SECONDARY CLOSURE SURGICAL WOUND OR DEHISCENCE, EXTENSIVE OR COMPLICATED, UPPER EXTREMITY (WRVU 12.04) performed by Sigifredo Garcia MD at [facility] MAIN OR Social History: Home setup: Pt lives with his father in a two level home with a couple [place]. Pt's bedroom and bathroom are on the first floor. The bathroom has a tub shower. Baseline Mobility/Prior level of function: Independent with mobility, ADLs and IADLs, drives, used to work for a [employer] company but is not currently working. Enjoys [...] self, hospital (but thinks he is at [facility]), and general situation but not specific [...] in this evaluation. Time IN / OUT: 8521-5462 Total Minutes, Physical Therapy: 43 (eval). Meghan Prabhakar, PT DPT 01/29/2022 Pager: [phone] Physical Therapy Inpatient Rehabilitation Department Alcira Dwyer [...] kg/m?? I/O last 3 completed shifts: In: 32368.3 [P.O.:1070; I.V.:8680.3; Other:40; NG/GT:394; IV Piggyback:303] Out: [...] Boykin MD - 01/29/2022 8:58 AM EDT [facility] MICU STAFF PROGRESS NOTE SECTION OF PULMONARY [...] Section of Pulmonary & Critical Care Pager: [phone] Armando, Doc Martinez MD - 01/29/2022 6:56 [...] as appropriate. Meghan Prabhakar PT DPT Pager #[phone] 01/28/2022 Physical Therapy Rehabilitation Department Dai Duarte OT - 01/28/2022 11:28 AM EDT Occupational Therapy: 01/28/22 1127 Evaluation & Treatment Document Type contact Total Minutes, Occupational Therapy 0 Comment, Session Not Performed OT orders received/chart reviewed. Patient scheduled for the OR today. RN requested therapy hold for today. OT will follow up tomorrow Dai Duarte OTR/L Pager [phone] Alcira Dwyer MD - 01/28/2022 9:09 AM [...] kg/m?? 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 We can decide tomorrow if he is a candidate for shift therapy. It is possible that he will improve enough that he could be managed with diuretics. We will continue to follow Backer, Beck Boykin MD - 01/28/2022 9:07 AM EDT [facility] MICU STAFF PROGRESS NOTE SECTION OF PULMONARY [...] Section of Pulmonary & Critical Care Pager: [phone] Parrish Esqueda MD - 01/28/2022 5:26 AM [...] per 24 hour Intake 9192.61 ml Output 72584 ml Net -1170.39 ml Body mass index [...] RN - 01/27/2022 9:16 PM EDTSummary: tele [facility] Images from the original note were [...] 0620 01/24/22 0016 PHART 7.45 7.48* 7.48* IDE9HIB 33* 29* 30* PO2ART 114* 68* 70* [id number] 22.4 21.1 22.0 Intake/Output Summary (Last 24 hours) at 01/28/2022 0703 Last data filed at 01/28/2022 0700 Gross per 24 hour Intake 9662.51 ml Output 71185 ml Net -1043.49 ml Output: Urine 70 mL For admission: +71737.1 mL Physical Exam: General: Awake, somewhat conversational [...] Procedure Component Value Units Date/Time MRSA PCR [[id number]] Collected: 01/24/22 1310 Lab Status: Final result Specimen: Nasopharyngeal Swab Updated: 01/25/22 2224 MRSA Result Negative MRSA Interp -- Negative for methicillin-resistant Staphylococcus aureus (MRSA) This test was performed using the [employer]?? Dx System and the Xpert MRSA Assay. The MRSA target DNA was not detected. The sample processing control and probe check were valid. The performance of this test was determined by the [facility] Molecular Pathology Laboratory. It has been cleared by the U.S. Food and Drug Administration for clinical use. Comment: [VERIFIED DATE]01.25.22 Verified By:Alfonso Soto (Electronic Signature) MRSA PCR [[id number]] Collected: 01/23/22 1247 Lab Status: Final result Specimen: Nasopharyngeal Swab Updated: 01/25/22 1023 MRSA Result Negative MRSA Interp -- Negative for methicillin-resistant Staphylococcus aureus (MRSA) This test was performed using the [employer] Integrated?? Dx System and the Xpert MRSA Assay. The MRSA target DNA was not detected. The sample processing control and probe check were valid. The performance of this test was determined by the [facility] Molecular Pathology Laboratory. It has been cleared by the U.S. Food and Drug Administration for clinical use. Comment: [VERIFIED DATE]01.25.22 Verified By:Nora Shay (Electronic Signature) Lower Respiratory Culture Tracheal Aspirate [[id number]] (Abnormal) (Susceptibility) Collected: 01/23/22 1150 Lab Status: [...] Sensitive [1] Gentamicin is not appropriate for [place]-therapy. [2] Oxacillin (methicillin) susceptibility is a surrogate for the oral and parenteral cephalosporins, beta-lactam combination agents (amoxicillin-clavulanate, ampicillin-sulbactam and piperacillin-tazobactam) and carbapenem agents. It is NOT a surrogate for penicillin, ampicillin or piperacillin susceptibility. Linear View Blood culture [[id number]] Collected: 01/23/22 0600 Lab Status: Final result Specimen: Blood Updated: 01/28/22 0701 Blood Culture No growth at 5 days. Blood culture [[id number]] Collected: 01/23/22 0126 Lab Status: Final result Specimen: Blood Updated: 01/28/22 0701 Blood Culture No growth at 5 days. COVID-19 PCR [[id number]] (Abnormal) Collected: 01/23/22 0044 Lab Status: Final [...] diagnosis of COVID-19 is performed using the Smart Balloon SARS-CoV-2 Assay as authorized by the FDA Emergency Use Authorization (EUA). This EUA assay is intended for In-vitro Diagnostic (IVD) use with respiratory specimens such as nasopharyngeal swabs collected from individuals during the acute phase of infection. This assay is performed based on the instructions for use provided by [employer] and additional guidance provided by CDC and FDA. Testing is performed in the [facility] Laboratory within the Department of Pathology and Laboratory Medicine at [facility], certified under the Clinical Laboratory Improvement [...] fact sheets at the following FDA website: https://www.fda.gov/medical-devices/mtvjvoykqis-uzcxnlv-6272-busot-59-knljjhcck- hdo-ngxcvwtwizcleg-xijpqrt-devices/awsyc-gpxzzdbzfcz-fbpf SARS-Cov-2 RNA Source Trach Asp MRSA PCR [[id number]] Collected: 01/23/22 0044 Lab Status: Final result [...] of this test was determined by the [facility] Molecular Pathology Laboratory. It has been cleared [...] 28, 2022 Critical Care Green Team (pager [phone]) Alcira Dwyer MD - 01/27/2022 10:10 AM [...] kg/m?? I/O last 3 completed shifts: In: 02851.5 [I.V.:56336.5; NG/GT:319; IV Piggyback:236] Out: 8974 [Urine:105; Other:8864; [...] Boykin MD - 01/27/2022 9:35 AM EDT [facility] MICU STAFF PROGRESS NOTE SECTION OF PULMONARY [...] Section of Pulmonary & Critical Care Pager: [phone] T Gail Long - 01/27/2022 6:14 AM [...] 0620 01/24/22 0016 PHART 7.45 7.48* 7.48* [id number] 33* 29* 30* PO2ART 114* 68* 70* [id number] 22.4 21.1 22.0 Intake/Output Summary (Last 24 hours) at 01/27/2022 09 Last data filed at 01/27/2022 0900 Gross per 24 hour Intake 97333.32 ml Output 7421 ml Net 3034.32 ml [...] Procedure Component Value Units Date/Time MRSA PCR [[id number]] Collected: 01/24/22 1310 Lab Status: Final result [...] of this test was determined by the [facility] Molecular Pathology Laboratory. It has been cleared by the U.S. Food and Drug Administration for clinical use. Comment: [VERIFIED DATE]01.25.22 Verified By:Alfonso Soto (Electronic Signature) MRSA PCR [[id number]] Collected: 01/23/22 1247 Lab Status: Final result [...] of this test was determined by the [facility] Molecular Pathology Laboratory. It has been cleared by the U.S. Food and Drug Administration for clinical use. Comment: [VERIFIED DATE]01.25.22 Verified By:Nora Shay (Electronic Signature) Lower Respiratory Culture Tracheal Aspirate [[id number]] (Abnormal) (Susceptibility) Collected: 01/23/22 1150 Lab Status: [...] Sensitive [1] Gentamicin is not appropriate for [place]-therapy. [2] Oxacillin (methicillin) susceptibility is a surrogate for the oral and parenteral cephalosporins, beta-lactam combination agents (amoxicillin-clavulanate, ampicillin-sulbactam and piperacillin-tazobactam) and carbapenem agents. It is NOT a surrogate for penicillin, ampicillin or piperacillin susceptibility. Linear View Blood culture [[id number]] Collected: 01/23/22 0600 Lab Status: Preliminary result Specimen: Blood Updated: 01/27/22 0701 Blood Culture No growth at 4 days. Blood culture [[id number]] Collected: 01/23/22 0126 Lab Status: Preliminary result Specimen: Blood Updated: 01/27/22 0701 Blood Culture No growth at 4 days. COVID-19 PCR [[id number]] (Abnormal) Collected: 01/23/22 0044 Lab Status: Final [...] diagnosis of COVID-19 is performed using the [employer] SARS-CoV-2 Assay as authorized by the FDA Emergency Use Authorization (EUA). This EUA assay is intended for In-vitro Diagnostic (IVD) use with respiratory specimens such as nasopharyngeal swabs collected from individuals during the acute phase of infection. This assay is performed based on the instructions for use provided by [employer] and additional guidance provided by CDC and FDA. Testing is performed in the [facility] Laboratory within the Department of Pathology and Laboratory Medicine at [facility], certified under the Clinical Laboratory Improvement [...] fact sheets at the following FDA website: https://www.fda.gov/medical-devices/pnlyovnlffc-myttype-5043-zjomx-16-nmtmdtcrk- jjb-avbkhhlbdaviia-fzbjvii-devices/egzxn-rfnmghjpymj-ztxg SARS-Cov-2 RNA Source Trach Asp MRSA PCR [[id number]] Collected: 01/23/22 0044 Lab Status: Final result [...] of this test was determined by the [facility] Molecular Pathology Laboratory. It has been cleared [...] 0035 -- 4 Naso/Oral Tube 01/23/22 0059 [place] sump left nostril 01/23/22 0059 left nostril 4 Consults: ortho, neuro, ACS, wound, nephrology Decision Making: Code Status: Full Disposition: ICU Suggestions for changes: Gail Long January 27, 2022 Critical Care Green Team (pager [phone]) Parrish Esqueda MD - 01/27/2022 5:32 AM [...] (01/27/22 0125) ??? ketamine 0.5 mg/kg/hr (01/27/22 4216) ??? heparin (porcine) infusion 400 Units/hr (01/26/22 2157) ??? bicarbonate CRRT with 4 mEq/L K+, [...] Villela RN - 01/26/2022 8:25 PM EDTSummary: [facility] Images from the original note were not [...] 0620 01/24/22 0016 PHART 7.45 7.48* 7.48* [id number] 33* 29* 30* PO2ART 114* 68* 70* [id number] 22.4 21.1 22.0 Intake/Output Summary (Last 24 [...] Procedure Component Value Units Date/Time MRSA PCR [[id number]] Collected: 01/24/22 1310 Lab Status: Final result Specimen: Nasopharyngeal Swab Updated: 01/25/222223 MRSA Result Negative MRSA Interp -- Negative for methicillin-resistant Staphylococcus aureus (MRSA) This test was performed using the [employer]?? Dx System and the Xpert MRSA Assay. The MRSA target DNA was not detected. The sample processing control and probe check were valid. The performance of this test was determined by the [facility] Molecular Pathology [facility]. It has been cleared by the U.S. Food and Drug Administration for clinical use. Comment: [VERIFIED DATE]01.25.22 Verified By:Alfonso Soto (Electronic Signature) MRSA PCR [[id number]] Collected: 01/23/22 1247 Lab Status: Final result [...] of this test was determined by the [facility] Molecular Pathology [facility]. It has been cleared by the U.S. Food and Drug Administration for clinical use. Comment: [VERIFIED DATE]01.25.22 Verified By:Nora Shay (Electronic Signature) Lower Respiratory Culture Tracheal Aspirate [[id number]] (Abnormal) (Susceptibility) Collected: 01/23/22 1150 Lab Status: [...] Sensitive [1] Gentamicin is not appropriate for [place]-therapy. [2] Oxacillin (methicillin) susceptibility is a surrogate for the oral and parenteral cephalosporins, beta-lactam combination agents (amoxicillin-clavulanate, ampicillin-sulbactam and piperacillin-tazobactam) and carbapenem agents. It is NOT a surrogate for penicillin, ampicillin or piperacillin susceptibility. Linear View Blood culture [[id number]] Collected: 01/23/22 0600 Lab Status: Preliminary result Specimen: Blood Updated: 01/26/22 0701 Blood Culture No growth at 3 days. Blood culture [[id number]] Collected: 01/23/22 0126 Lab Status: Preliminary result Specimen: Blood Updated: 01/26/22 0701 Blood Culture No growth at 3 days. COVID-19 PCR [[id number]] (Abnormal) Collected: 01/23/22 0044 Lab Status: Final [...] diagnosis of COVID-19 is performed using the [employer] m SARS-CoV-2 Assay as authorized by the FDA Emergency Use Authorization (EUA). This EUA assay is intended for In-vitro Diagnostic (IVD) use with respiratory specimens such as nasopharyngeal swabs collected from individuals during the acute phase of infection. This assay is performed based on the instructions for use provided by [employer] and additional guidance provided by [facility] and FDA. Testing is performed in the [facility] within the Department of Pathology and Laboratory Medicine at [facility], certified under the Clinical Laboratory Improvement [...] fact sheets at the following FDA website: https://www.fda.gov/medical-devices/qggwqvgoesu-esptbte-0627-bnzqa-37-swkckgkuf- rir-khbnwvqxzsitqx-awyfyis-devices/ubbui-bdkstamaclm-dske SARS-Cov-2 RNA Source Trach Asp MRSA PCR [[id number]] Collected: 01/23/22 0044 Lab Status: Final result Specimen: Nasopharyngeal Swab Updated: 01/25/22 1024 MRSA Result Negative MRSA Interp -- Negative for methicillin-resistant Staphylococcus aureus (MRSA) This test was performed using the [employer]?? Dx System and the Xpert MRSA Assay. The MRSA target DNA was not detected. The sample processing control and probe check were valid. The performance of this test was determined by the [facility] Molecular Pathology Laboratory. It has been cleared [...] 0035 -- 3 Naso/Oral Tube 01/23/22 0059 [place] sump left nostril 01/23/22 0059 left nostril 3 ETT Airway 01/23/22 0116 01/23/22 0116 -- 3 Consults: ortho Decision Making: Code Status: Full Disposition: ICU Suggestions for changes: Gail Long January 26, 2022 Critical Care Green Team (pager [phone]) Nahed Fraser MD - 01/26/2022 11:32 AM [...] Rhabdomyolysis ??? Transaminitis ??? Aspiration pneumonia ??? LIZE, LLE compartment syndrome s/p fasciotimies, I+D 01/23/22 [...] Sanz MD - 01/26/2022 8:00 AM EDT [facility] MICU STAFF PROGRESS NOTE SECTION OF PULMONARY [...] Section of Pulmonary & Critical Care Pager: [phone] Kris Dean MD - 01/26/2022 6:01 AM EDT ORTHOPAEDIC SURGERY INPATIENT PROGRESS NOTE Patient Name: Alix Holland Age: 31 y.o. Surgery/Issue: L forearm, thigh, buttock, leg compartment syndrome s/p fasciotomies Attending: Jose Date of surgery: 01/23/2022 SUBJECTIVE / INTERVAL HISTORY: Alix remains intubated and sedated, but per staff accountant he is moving bilateral upper and lower [...] Sigifredo Garcia MD Department of Orthopaedics 01/27/22 Detsinee Haskins RN - 01/25/2022 9:07 PM EDTSummary: TeleICU rhythm strip Images from the original note were not included. Sinus jonatahn Nahed Green RT - 01/25/2022 8:23 PM [...] Patient would occasionally take exceptionally large Vt's, sizgok5dmm >2 liters. This was not typical however, and for the majority of the [facility] patient was comfortable with MV support. Continue [...] kg/m?? I/O last 3 completed shifts: In: 68896 [I.V.:9488; NG/GT:97; IV Piggyback:904] Out: 5394 [Urine:171; [...] Boykin MD - 01/25/2022 7:53 AM EDT [facility] MICU STAFF PROGRESS NOTE SECTION OF PULMONARY [...] MICU Attending Pulmonary & Critical Care Pager: [phone] Kris Dean MD - 01/25/2022 5:55 AM EDT ORTHOPAEDIC SURGERY INPATIENT PROGRESS NOTE Patient Name: Alix Holland Age: 31 y.o. Surgery/Issue: L forearm, thigh, buttock, leg compartment syndrome s/p fasciotomies Attending: Jose Date of surgery: 01/23/2022 SUBJECTIVE / INTERVAL HISTORY: Alix remains intubated and sedated, but per staff accountant he is moving bilateral upper and lower [...] closure of fasciotomy sites. - Activity: NWB LIZE, STEPHENB LLE - Antibiotics: rec Ancef - DVT [...] 1810 01/23/22 1156 PHART 7.48* 7.46* 7.43 [id number] 29* 31* 32* PO2ART 68* 79* 86 [id number] 21.1 21.5 20.8 Intake/Output Summary (Last 24 [...] Units Date/Time Lower Respiratory Culture Tracheal Aspirate [[id number]] (Abnormal) Collected: 01/23/22 1150 Lab Status: Preliminary result Specimen: Tracheal Aspirate Updated: 01/24/22 0848 Lower Respiratory Culture -- Many Staphylococcus aureus Few mixed bacterial morphotypes suggestive of normal upper respiratory yessy Gram Stain -- Many Neutrophils No squamous epithelial cells Moderate Gram Positive Cocci Blood culture [[id number]] Collected: 01/23/22 0600 Lab Status: Preliminary result Specimen: Blood Updated: 01/24/22 0701 Blood Culture No growth at 1 day. Blood culture [[id number]] Collected: 01/23/22 0126 Lab Status: Preliminary result Specimen: Blood Updated: 01/24/22 0701 Blood Culture No growth at 1 day. COVID-19 PCR [[id number]] (Abnormal) Collected: 01/23/22 0044 Lab Status: Final [...] diagnosis of COVID-19 is performed using the [employer] m SARS-CoV-2 Assay as authorized by the FDA Emergency Use Authorization (EUA). This EUA assay is intended for In-vitro Diagnostic (IVD) use with respiratory specimens such as nasopharyngeal swabs collected from individuals during the acute phase of infection. This assay is performed based on the instructions for use provided by [employer] and additional guidance provided by CDC and FDA. Testing is performed in the [facility] within the Department of Pathology and Laboratory Medicine at [facility], certified under the Clinical Laboratory Improvement [...] fact sheets at the following FDA website: https://www.fda.gov/medical-devices/qsgwgulgaeo-xearjzm-5444-xopsw-75-rqjjsgguu- tuj-xzmsfcvpvfxcqj-hyulchh-devices/yhdda-kqnrwhkjuyd-xdqb SARS-Cov-2 RNA Source Trach Asp ECG: Telemetry [...] who have questions please contact the health care associate that requested your imaging first. Head wo Contrast (Generic) (Exam End: 01/23/2022 3:58 AM) Impression Globi pallidi infarcts. Mild cerebral edema. Thank you for letting us participate in the care of this patient. If you are a health care provider and have any questions regarding this report, please contact the number below. For patients who have questions please contact the health care associate that requested your imaging first. Abdomen 1 view (Generic) (Exam End: 01/23/2022 [...] who have questions please contact the health care associate that requested your imaging first. Lower Extremity wo Contrast Left (Generic) (Exam [...] who have questions please contact the health care associate that requested your imaging first. Chest wo Contrast (Generic) (Exam End: 01/23/2022 [...] who have questions please contact the health care associate that requested your imaging first. Electronically signed by: [facility] ([phone]), at 01/23/2022 4:[address] Upper Extremity [...] who have questions please contact the health care associate that requested your imaging first. Electronically signed by: Rex Addison [facility] ([phone]), at 01/23/2022 4:58 AM XR Forearm Left [...] who have questions please contact the health care associate that requested your imaging first. Electronically signed by: Rex Addison [facility] ([phone]), at 01/23/2022 7:14 AM XR Chest One [...] who have questions please contact the health care associate that requested your imaging first. Femur 2 views Left (Generic) (Exam End: 01/23/2022 2:04 PM) Impression No significant osseous finding. Thank you for letting us participate in the care of this patient. If you are a health care provider and have any questions regarding this report, please contact the number below. For patients who have questions please contact the health care associate that requested your imaging first. Tibia Fibula Left (Generic) (Exam End: 01/23/2022 2:04 PM) Impression No bony abnormality seen. Thank you for letting us participate in the care of this patient. If you are a health care provider and have any questions regarding this report, please contact the number below. For patients who have questions please contact the health care associate that requested your imaging first. Chest One View (Exam End: 01/23/2022 4:54 [...] who have questions please contact the health care associate that requested your imaging first. Assessment: Alix [...] 24, 2022 Critical Care Green Team (pager [phone]) T Angelina Reynoso MD - 01/24/2022 3:02 PM EDT Nephrology Attending Procedure note: CRRT Alix Holland was seen and examined on CVVH. Data and chart reviewed. The case was discussed with the CCS team 31 y.o.??male?? presented to ICU having been found down at home conscious but then experienced jth-zs-zcgnggrk cardiac arrest with ROSC, severe hyperkalemia, rhabdomyolysis, [...] arrest. He had a hospital admission at [facility] in Apr 2021 for angioedema. During that admission, he had initially presented at [facility] with facial and oropharyngeal swelling and had to be fibreoptically intubated in the OR. He was transferred to [facility] for further management and received treatment with [...] EMS was called and en route to [facility], he was noted to be in possible SVT. He was given narcan which did not help. The details are slightly uncertain/unclear. On arrival to [facility], he was noted to have a V. tach arrest for which she was shocked. He is lab work was consistent with hyperkalemia with a potassium of 7.8 for which she received multiple doses of sodium bicarbonate, calcium gluconate and insulin/D10 with improvement in potassium to5.4. He was also intubated at [facility] and was transferred to [facility] for further management. He was found to be COVID-positive at [facility]. On arrival to [facility], he was again noted to be hyperkalemic [...] to OSH and and after arrival to [facility], was weaned to minimal oxygen support. CT [...] eyes with verbal stimulus. Has followed commands. [facility] labs and studies: 01/24/2022 WBC 11.4 hemoglobin 14.8 hematocrit 41.7 platelets 136 ABG 7.4 03/29/1967 Sodium 136 potassium 4.4 chloride 103 [place] [address] Total bilirubin 0.5 AST 1181 ALT 682 [...] 0035 -- 1 Naso/Oral Tube 01/23/22 0059 [place] sump left nostril 01/23/22 0059 left nostril [...] on CRRT. Hg 14.8, CK remains elevated 25152. AFVSS, NAEON. No motor or sensory exam possible this AM, per team has been seen moving right side. Pressor requirements decreasing. FOCUSED REVIEW OF SYSTEMS: as above. Active Hospital Problems Diagnosis ??? Rhabdomyolysis ??? Transaminitis ??? Aspiration pneumonia ??? LUES[place]AMAR compartment syndrome s/p fasciotimies, I+D 01/23/22 Jose [...] px: Per primary - Diet: NPO MN Tanya Hernandez MD 01/24/2022 No future appointments. Associated [...] SBT Protocol: Yes SBT: Not performed per [facility] availability. Vent Settings: Ventilator Mode: PS/CPAP PEEP [...] >220,000 (H) 0 - 200 unit/L TSH [place] Result Value Ref Range TSH 7.69 (H) [...] Value Ref Range T&S only valid at [facility] Triglyceride Result Value Ref Range Triglycerides 273 [...] mcL Appearance UA Cloudy (A) Clear Spec [place] UA >=1.030 (A) 1.006 - 1.030 Color [...] 2.5 - 4.5 mg/dL Blood Gas Arterial ([facility]) Result Value Ref Range pH Art 7.37 [...] Skin Integrity: WDL Ambu bag setup at [facility] Breath Sounds: coarse/diminished Secretions: scant creamy thick [...] down at home conscious but then experienced eop-et-fganyzyu cardiac arrest with ROSC, severe hyperkalemia, rhabdomyolysis, [...] mcg/mL) bolus from infusion 25-100 mcg AND [MAR Hold] fentaNYL shift total and Settings verification AND Assess ??? [SEP Hold] propofoL (Diprivan) (10 mg/mL) infusion AND [MAR Hold] propofoL (Diprivan) (10 mg/mL) bolus from infusion 10 mg ??? [COMPLETED] acetylcysteine (Acetadote) 15,000 mg in dextrose 5% 200 mL infusion (Loading Dose) FOLLOWED BY [COMPLETED] acetylcysteine (Acetadote) 5,000 mg in dextrose 5% 500 mL infusion (SecondDose) FOLLOWED BY [MAR Hold] acetylcysteine (Acetadote) 10,000 mg in dextrose [...] EMS. Patient had cardiac arrest enroute to [facility] ED for which Jitendra CPR was initiated. [...] -Tylenol, - salicylates, -ETOH. Upon arrival to [facility], pt intubated and ventilator-noncompliant. Ketamine boluses given [...] 01/23/22 0721 01/23/22 0125 PHART 7.37 7.32* [id number] 28* 33* PO2ART 96 68* BPT1SMY 15.7* 16.8* Intake/Output Summary (Last 24 hours) [...] who have questions please contact the health care associate that requested your imaging first. Head wo Contrast (Generic) (Exam End: 01/23/2022 3:58 AM) Impression Globi pallidi infarcts. Mild cerebral edema. Thank you for letting us participate in the care of this patient. If you are a health care provider and have any questions regarding this report, please contact the number below. For patients who have questions please contact the health care associate that requested your imaging first. Abdomen 1 view (Generic) (Exam End: 01/23/2022 [...] who have questions please contact the health care associate that requested your imaging first. Chest wo Contrast (Generic) (Exam End: 01/23/2022 [...] who have questions please contact the health care associate that requested your imaging first. Upper Extremity [...] who have questions please contact the health care associate that requested your imaging first. Forearm Left [...] who have questions please contact the health care associate that requested your imaging first. Chest One [...] who have questions please contact the health care associate that requested your imaging first. Assessment: Alix [...] FiO2 weaned to 30% since admission to [facility]. He has also been febrile with Tmax [...] 23, 2022 Critical Care Green Team (pager [phone]) Tex Robles MD - 01/23/2022 8:22 AM [...] arrest. He had a hospital admission at [facility] in Apr 2021 for angioedema. During that admission, he had initially presented at [facility] with facial and oropharyngeal swelling and had to be fibreoptically intubated in the OR. He was transferred to [facility] for further management and received treatment with [...] EMS was called and en route to [facility], he was noted to be in possible SVT. He was given narcan which did not help. The details are slightly uncertain/unclear. On arrival to [facility], he was noted to have a V. tach arrest for which she was shocked. He is lab work was consistent with hyperkalemia with a potassium of 7.8 for which she received multiple doses of sodium bicarbonate, calcium gluconate and insulin/D10 with improvement in potassium to5.4. He was also intubated at [facility] and was transferred to [facility] for further management. He was found to be COVID-positive at [facility]. On arrival to [facility], he was again noted to be hyperkalemic [...] to OSH and and after arrival to [facility], was weaned to minimal oxygen support. CT [...] done by CHRISTA today given COVID precautions. [facility] labs and studies: WBC 4.1 hemoglobin 17.6 [...] less than 1 Naso/Oral Tube 01/23/22 0059 [place] sump left nostril 01/23/22 0059 left nostril [...] Wen MD - 01/23/2022 4:37 AM EDT [facility] TeleICU Initial Assessment Note I established audio/visual communication with the patient's room, reviewed the eDH, and discussed the patient's case with transfer center and ICU fellow. History and Assessment: 31 y.o. male w/ PMHx of HTN, angioedema and polysubstance abuse (cocaine, EtOH and heroin) transferred from [facility] ED after having presented there with an xhu-gu-xnsewbbv arrest. He reportedly took fentanyl. EMS administered [...] Result Value CK, Total >220,000 (H) TSH [place] Result Value TSH 7.69 (H) ABO/Rh Typing [...] Validity Result Value T&S only valid at [facility] Hosp Triglyceride Result Value Triglycerides 273 T4, free Result Value Free T4 1.19 _Urinalysis with microscopic Result Value Glucose UA Negative Protein UA >=300 (A) Bilirubin UA Moderate (A) Urobilinogen UA Normal pH UA 6.5 Blood UA Large (A) Ketones UA Trace (A) Nitrite UA Positive (A) Leukocytes UA Negative Appearance UA Cloudy (A) Spec [place] UA >=1.030 (A) Color UA Brown (A) [...] arrest for which he is now at [facility] being treated. On exam primary team found [...] yet resuscitated, with elevated Hg 21.5, CK >196160, and K 7.6 which may be contributing to his nonpalpable pulse. His troponins remain elevatd at 0.43. I discussed with the primary team the importance of resuscitation. I discussed that without a patient that can participate in exam diagnosis of compartment syndrome can be more challenging, and we will therefore plan for [place] compartment check when patient back from CT [...] Santos MD - 03/15/2022 6:22 AM EDT [facility] General Surgery History and Physical ID: [...] Arteriogram Lower Extremity 02/06/2022 Nicole Vivas MD [facility] INTERVENTIONL RAD ??? PRO DEBRIDEMENT BONE EA ADDL 20 SQCM 02/08/2022 EACH ADDITIONAL 20 SQ CM, OR PART THEREOF (WRVU 1.8) performed by Jeanette Chatterjee MD at [facility] PAIGE ? ? PRO DEBRIDEMENT BONE MUSCLE &/FASCIA 20 SQ CM/< Left 01/29/2022 DEBRIDEMENT SKIN, SUBCU, MUSCLE, BONE, LOWER EXTREMITY (WRVU 4.1) performed by Tom Valdovinos MD [facility] MAIN OR ? ? PRO DEBRIDEMENT BONE MUSCLE &/FASCIA 20 SQ CM/< Left 01/31/2022 DEBRIDEMENT SKIN, SUBCU, MUSCLE, BONE, LOWER EXTREMITY (WRVU 4.1) performed by Jose Branch MD at [facility] MAIN OR ? ? PRO DEBRIDEMENT BONE MUSCLE &/FASCIA 20 SQ CM/< Left 01/31/2022 DEBRIDEMENT SKIN, SUBCU, MUSCLE, BONE UPPER EXTREMITY (WRVU 4.1) performed by Jose Branch MDat [facility] MAIN OR ? ? PRO DEBRIDEMENT BONE MUSCLE &/FASCIA 20 SQ CM/< Left 02/02/2022 DEBRIDEMENT SKIN, SUBCU, MUSCLE, BONE UPPER EXTREMITY (WRVU 4.1) performed by Hina Starks MD at [facility] OR ? ? PRO DEBRIDEMENT BONE MUSCLE &/FASCIA 20 SQ CM/< Left 02/02/2022 DEBRIDEMENT SKIN, SUBCU, MUSCLE, BONE, LOWER EXTREMITY (WRVU 4.1) performed by Hina Starks MD at [facility] OR ? ? PRO DEBRIDEMENT MUSCLE AND FASCIA 20 SQ CM/< Left 01/26/2022 DEBRIDEMENT SKIN, SUBCU, MUSCLE, LOWER EXTREMITY (WRVU 2.7) performed by Sigifredo Garcia MD at [facility] OR ? ? PRO DEBRIDEMENT MUSCLE AND FASCIA 20 SQ CM/< Left 01/26/2022 DEBRIDEMENT SKIN, SUBCU, MUSCLE, UPPER EXTREMITY (WRVU 2.7) performed by Sigifredo Garcia MD at [facility] OR ? ? PRO DEBRIDEMENT MUSCLE AND FASCIA 20 SQ CM/< Left 02/05/2022 DEBRIDEMENT SKIN, SUBCU, MUSCLE, LOWER EXTREMITY (WRVU 2.7) performed by Tom Valdovinos MD at [facility] OR ? ? PRO DEBRIDEMENT MUSCLE AND FASCIA 20 SQ CM/< Left 02/04/2022 DEBRIDEMENT SKIN, SUBCU, MUSCLE, LOWER EXTREMITY (WRVU 2.7) performed by Sigifredo Garcia MD at [facility] OR ? ? PRO DEBRIDEMENT MUSCLE AND FASCIA 20 SQ CM/< Left 02/15/2022 DEBRIDEMENT SKIN, SUBCU, MUSCLE, UPPER EXTREMITY (WRVU 2.7) performed by Jayme Armstrong MD at [facility] OR ? ? PRO DEBRIDEMENT MUSCLE AND FASCIA 20 SQ CM/< Left 02/19/2022 DEBRIDEMENT SKIN, SUBCU, MUSCLE, LOWER EXTREMITY (WRVU 2.7) performed by Jayme Armstrong MD at [facility] OR ? ? PRO DEBRIDEMENT MUSCLE AND FASCIA 20 SQ CM/< Left 02/22/2022 DEBRIDEMENT SKIN, SUBCU, MUSCLE, LOWER EXTREMITY (WRVU 2.7) performed by Parrish Betancourt MD at [facility] OR ? ? PRO DEBRIDEMENT MUSCLE AND FASCIA 20 SQ CM/< Left 02/24/2022 DEBRIDEMENT SKIN, SUBCU, MUSCLE, LOWER EXTREMITY (WRVU 2.7) performed by Parrish Betancourt MD at [facility] OR ? ? PRO DEBRIDEMENT MUSCLE AND FASCIA 20 SQ CM/< Left 02/26/2022 DEBRIDEMENT SKIN, SUBCU, MUSCLE, UPPER EXTREMITY (WRVU 2.7) performed by Parrish Betancourt MD at [facility] OR ? ? PRO DEBRIDEMENT SUBCUTANEOUS TISSUE 20 SQCM/< Left 02/04/2022 DEBRIDEMENT SKIN AND SUBCU, UPPER EXTREMITY (WRVU 1.01) [facility] ? ? PRO DEBRIDEMENT SUBCUTANEOUS TISSUE 20 SQCM/< Left 02/08/2022 DEBRIDEMENT SKIN AND SUBCU, LOWER EXTREMITY (WRVU 1.01) performed by Jeanette Chatterjee MD at [facility] OR ? ? PRO DEBRIDEMENT SUBCUTANEOUS TISSUE 20 SQCM/< Left 02/09/2022 DEBRIDEMENT SKIN AND SUBCU, LOWER EXTREMITY (WRVU 1.01) performed by Jeanette Chatterjee MD at [facility] OR ? ? PRO DEBRIDEMENT SUBCUTANEOUS TISSUE 20 SQCM/< Left 02/11/2022 DEBRIDEMENT SKIN AND SUBCU, LOWER EXTREMITY (WRVU 1.01) performed by Parrish Betancourt MD at [facility] OR ? ? PRO DEBRIDEMENT SUBCUTANEOUS TISSUE 20 SQCM/< Left 02/13/2022 DEBRIDEMENT SKIN AND SUBCU, LOWER EXTREMITY (WRVU 1.01) performed by Jeanette Chatterjee MD at [facility] OR ? ? PRO DEBRIDEMENT SUBCUTANEOUS TISSUE 20 SQCM/< Left 02/15/2022 DEBRIDEMENT SKIN AND SUBCU, LOWER EXTREMITY (WRVU 1.01) performed by Jayme Armstrong MD at [facility] OR ? ? PRO DEBRIDEMENT SUBCUTANEOUS TISSUE 20 SQCM/< Left 02/17/2022 DEBRIDEMENT SKIN AND SUBCU, LOWER EXTREMITY (WRVU 1.01) performed by Jayme Armstrong MD at [facility] OR ??? PRO DECOMP FOREARM, 2 COMPART, W/O DEBRIDE Left 01/23/2022 FASCIOTOMY; FOREARM AND\OR WRIST, FLEXOR & EXTENS. COMP (WRVU 10.79) performed by Sigifredo Garcia MD at [facility] OR ??? PRO DECOMPRESS ANT/LAT+POST LEG CMPART Left 01/23/2022 FASCIOTOMY, LOWER LEG, ALL COMPARTMENTS (WRVU 7.82) performed by Sigifredo Garcia MD at [facility] OR ??? PRO DRESSING CHANGE UNDER ANESTHESIA Left 02/11/2022 DRESSING CHANGE (FOR OTHER THAN GALLOWAY) UNDER ANES., UPPER EXTREMITY (WRVU 0.86) performed by Parrish Betancourt MD at [facility] OR ??? PRO DRESSING CHANGE UNDER ANESTHESIA Left 02/13/2022 DRESSING CHANGE (FOR OTHER THAN GALLOWAY) UNDER ANES., UPPER EXTREMITY (WRVU 0.86) performed by Jeanette Chatterjee MD at [facility] OR ??? PRO DRESSING CHANGE UNDER ANESTHESIA Left 02/17/2022 DRESSING CHANGE (FOR OTHER THAN GALLOWAY) UNDER ANES., UPPER EXTREMITY (WRVU 0.86) performed by Jayme Armstrong MD at [facility] OR ??? PRO DRESSING CHANGE UNDER ANESTHESIA Left 02/19/2022 DRESSING CHANGE (FOR OTHER THAN GALLOWAY) UNDER ANES., UPPER EXTREMITY (WRVU 0.86) performed by Jayme Armstrong MD at [facility] OR ??? PRO DRESSING CHANGE UNDER ANESTHESIA Left 02/22/2022 DRESSING CHANGE (FOR OTHER THAN GALLOWAY) UNDER ANES., UPPER EXTREMITY (WRVU 0.86) performed by Parrish Betancourt MD at [facility] OR ??? PRO DRESSING CHANGE UNDER ANESTHESIA Left 02/24/2022 DRESSING CHANGE (FOR OTHER THAN GALLOWAY) UNDER ANES., UPPER EXTREMITY (WRVU 0.86) performed by Parrish Betancourt MD at [facility] OR ??? PRO DRESSING CHANGE UNDER ANESTHESIA Left 02/26/2022 DRESSING CHANGE (FOR OTHER THAN GALLOWAY) UNDER ANES., LOWER EXTREMITY (WRVU 0.86) performed by Parrish Betancourt MD at [facility] OR ??? PRO DRESSING CHANGE UNDER ANESTHESIA Left 02/26/2022 DRESSING CHANGE (FOR OTHER THAN GALLOWAY) UNDER ANES., UPPER EXTREMITY (WRVU 0.86) performed by Parrish Betancourt MD at [facility] OR ??? PRO DRESSING CHANGE UNDER ANESTHESIA Left 03/01/2022 DRESSING CHANGE (FOR OTHER THAN GALLOWAY) UNDER ANES., LOWER EXTREMITY (WRVU 0.86) performed by Willie Sanabria MD at [facility] OR ??? PRO DRESSING CHANGE UNDER ANESTHESIA N/A 03/01/2022 DRESSING CHANGE (FOR OTHER THAN GALLOWAY) UNDER ANES., UPPER EXTREMITY (WRVU 0.86) performed by Willie Sanabria MD at [facility] OR ??? PRO DRESSING CHANGE UNDER ANESTHESIA Left 03/13/2022 DRESSING CHANGE (FOR OTHER THAN GALLOWAY) UNDER ANES., UPPER EXTREMITY (WRVU 0.86) performed by Willie Sanabria MD at [facility] OR ??? PRO DRESSING CHANGE UNDER ANESTHESIA Left 03/13/2022 DRESSING CHANGE (FOR OTHER THAN GALLOWAY) UNDER ANES., LOWER EXTREMITY (WRVU 0.86) performed by Willie Sanabria MD at [facility] OR ? ? PRO I&D DEEP ABSCESS BURSA/HEMATOMA THIGH/KNEE REGION Left 02/06/2022 INCISION & DRAINAGE ABSCESS OR HEMATOMA, THIGH, KNEE SUPERFICIAL (WRVU 6.78) performed by Jayme Armstrong MD at [facility] OR ??? PRO INCIS OF HIP/THIGH FASCIA Left 01/23/2022 @FASCIOTOMY,THIGH OR HIP FOR COMPARTMENT SYNDROME (WRVU 12.89) performed by Sigifredo Garcia MD at [facility] OR ??? PRO NEGATIVE PRESSURE WOUND THERAPY, LESS THAN OR EQUAL TO 50 SQCM Left 02/05/2022 DRESSING CHANGE (VAC ASSISTED) UP TO 50SQ.CM (WRVU 0.55) performed by Orville Hennessy MD at [facility] OR ??? PRO NEGATIVE PRESSURE WOUND THERAPY, LESS THAN OR EQUAL TO 50 SQCM Left 02/05/2022 DRESSING CHANGE (VAC ASSISTED) UP TO 50SQ.CM (WRVU 0.55) performed by Tom Valdovinos MD at [facility] OR ??? PRO NEGATIVE PRESSURE WOUND THERAPY, LESS THAN OR EQUAL TO 50 SQCM Left 02/08/2022 DRESSING CHANGE (VAC ASSISTED) UP TO 50SQ.CM (WRVU 0.55) performed by Jeanette Chatterjee MD at [facility] OR ??? PRO NEGATIVE PRESSURE WOUND THERAPY, LESS THAN OR EQUAL TO 50 SQCM Left 03/03/2022 DRESSING CHANGE (VAC ASSISTED) UP TO 50SQ.CM (WRVU 0.55) performed by Willie Sanabria MD at [facility] MAIN OR ??? PRO OPEN TREAT MANDIBLE CONDYLE FX, COMPL 04/27/2013 OPEN TREATMENT, COMPLEX MANDIBLE FX., MULTI APPROACH, W/ FIXATION performed by Kishore Neil MD at [facility] MAIN OR ??? PRO REVISE MEDIAN N/CARPAL TUNNEL SURG Left 01/23/2022 MEDIAN NERVE DECOMPRESSION (CARPAL TUNNEL RELEASE) (WRVU 4.97) performed by Sigifredo Garcia MD at [facility] MAIN OR ??? PRO SEC CLSR SURG WOUND/DEHSN EXTENSIVE/COMPLICATED Left 01/26/2022 SECONDARY CLOSURE SURGICAL WOUND OR DEHISCENCE, EXTENSIVE OR COMPLICATED, UPPER EXTREMITY (WRVU 12.04) performed by Sigifredo Garcia MD at [facility] MAIN OR ??? PRO SKIN SUB GRAFT TRNK/ARM/LEG AREA UNDER 100SQCM EA ADL 25SQCM Left 03/10/2022 APPL SKIN SUB GRAFT TO LEGS, TO 100 SQ CM; EA ADD'L 25 SQ CM AREA (WRVU 0.33) performed by Parrish Betancourt MD at [facility] MAIN OR ??? PRO SKIN SUB GRAFT TRNK/ARM/LEG AREA UNDER 100SQCM EA ADL 25SQCM Left 03/10/2022 APPL SKIN SUB GRAFT TO ARMS, TO 100 SQ CM; EA ADD'L 25 SQ CM AREA (WRVU 0.33) performed by Parrish Betancourt MD at [facility] MAIN OR Current Facility-Administered Medications: ??? MEROpenem (Merrem) 1 g vial attach to sodium chloride 0.9% 100 mL Mini-Bag Plus, 1 g, Intravenous, Q8H, Nancy Chahal MD, Stopped at 03/15/22 0210 ??? vancomycin (Vancocin) capsule 125 mg, 125 mg, Oral, BID, Floridalma Sandoval MD, 125 mg at 03/14/22 6935 ??? vancomycin (Vancocin) 1 gram in sodium [...] mg/mL) in sodium chloride 0.9% 50 mL RIGGER THIRD infusion, , Intravenous, RIGGER THIRD Only, Jareth Alonzo MD, 50 mg at [...] Q1 Min PRN, Kinjal Alonzo MD ??? RIGGER THIRD hutton, , Intravenous, Continuous PRN, Jareth Alonzo MD ??? HYDROmorphone (mg) RIGGER THIRD shift total and Settings verification, , Intravenous, 2 Times Daily- RIGGER THIRD Shift Total, Jareth Alonzo MD ??? docusate sodium (Colace) capsule 100 mg, 100 mg, Oral, BID, Jareth Alonzo MD, 100 mg at 03/14/22 2147 ??? heparin (porcine) (5,000 units/1 mL) subcutaneous injection 5,000 Units, 5,000 Units, Subcutaneous, Q8H [place], Jareth Alonzo MD, 5,000 Units at 03/15/22 4139 ??? naloxone (Narcan) (0.4 mg/mL) injection 0.04 [...] mg, Oral, Q4H PRN, 15 mg at 03/15/220 OR [DISCONTINUED] oxyCODONE (Roxicodone) tablet 20 mg, [...] Daily, Jareth Alonzo MD, 1,000 mcg at 03/14/22 08 ??? thiamine (Vitamin B1) tablet 100 [...] Santos MD - 03/10/2022 6:15 AM EDT [facility] General Surgery History and Physical Alix [...] Arteriogram Lower Extremity 02/06/2022 Nicole Vivas MD [facility] INTERVENTIONL RAD ??? PRO DEBRIDEMENT BONE EA ADDL 20 SQCM 02/08/2022 EACH ADDITIONAL 20 SQ CM, OR PART THEREOF (WRVU 1.8) performed by Jeanette Chatterjee MD at [facility] ? ? PRO DEBRIDEMENT BONE MUSCLE &/FASCIA 20 SQ CM/< Left 01/29/2022 DEBRIDEMENT SKIN, SUBCU, MUSCLE, BONE, LOWER EXTREMITY (WRVU 4.1) performed by Tom Valdovinos MD [facility] MAIN OR ? ? PRO DEBRIDEMENT BONE MUSCLE &/FASCIA 20 SQ CM/< Left 01/31/2022 DEBRIDEMENT SKIN, SUBCU, MUSCLE, BONE, LOWER EXTREMITY (WRVU 4.1) performed by Jose Branch MD at [facility] MAIN OR ? ? PRO DEBRIDEMENT BONE MUSCLE &/FASCIA 20 SQ CM/< Left 01/31/2022 DEBRIDEMENT SKIN, SUBCU, MUSCLE, BONE UPPER EXTREMITY (WRVU 4.1) performed by Jose Branch MDat [facility] MAIN OR ? ? PRO DEBRIDEMENT BONE MUSCLE &/FASCIA 20 SQ CM/< Left 02/02/2022 DEBRIDEMENT SKIN, SUBCU, MUSCLE, BONE UPPER EXTREMITY (WRVU 4.1) performed by Hina Starks MD at [facility] MAIN OR ? ? PRO DEBRIDEMENT BONE MUSCLE &/FASCIA 20 SQ CM/< Left 02/02/2022 DEBRIDEMENT SKIN, SUBCU, MUSCLE, BONE, LOWER EXTREMITY (WRVU 4.1) performed by Hina Starks MD at [facility] MAIN OR ? ? PRO DEBRIDEMENT MUSCLE AND FASCIA 20 SQ CM/< Left 01/26/2022 DEBRIDEMENT SKIN, SUBCU, MUSCLE, LOWER EXTREMITY (WRVU 2.7) performed by Sigifredo Garcia MD at [facility] MAIN OR ? ? PRO DEBRIDEMENT MUSCLE AND FASCIA 20 SQ CM/< Left 01/26/2022 DEBRIDEMENT SKIN, SUBCU, MUSCLE, UPPER EXTREMITY (WRVU 2.7) performed by Sigifredo Garcia MD at [facility] MAIN OR ? ? PRO DEBRIDEMENT MUSCLE AND FASCIA 20 SQ CM/< Left 02/05/2022 DEBRIDEMENT SKIN, SUBCU, MUSCLE, LOWER EXTREMITY (WRVU 2.7) performed by Tom Valdovinos MD at [facility] MAIN OR ? ? PRO DEBRIDEMENT MUSCLE AND FASCIA 20 SQ CM/< Left 02/04/2022 DEBRIDEMENT SKIN, SUBCU, MUSCLE, LOWER EXTREMITY (WRVU 2.7) performed by Sigifredo Garcia MD at [facility] OR ? ? PRO DEBRIDEMENT MUSCLE AND FASCIA 20 SQ CM/< Left 02/15/2022 DEBRIDEMENT SKIN, SUBCU, MUSCLE, UPPER EXTREMITY (WRVU 2.7) performed by Jayme Armstrong MD at [facility] OR ? ? PRO DEBRIDEMENT MUSCLE AND FASCIA 20 SQ CM/< Left 02/19/2022 DEBRIDEMENT SKIN, SUBCU, MUSCLE, LOWER EXTREMITY (WRVU 2.7) performed by Jayme Armstrong MD at [facility] OR ? ? PRO DEBRIDEMENT MUSCLE AND FASCIA 20 SQ CM/< Left 02/22/2022 DEBRIDEMENT SKIN, SUBCU, MUSCLE, LOWER EXTREMITY (WRVU 2.7) performed by Parrish Betancourt MD at [facility] OR ? ? PRO DEBRIDEMENT MUSCLE AND FASCIA 20 SQ CM/< Left 02/24/2022 DEBRIDEMENT SKIN, SUBCU, MUSCLE, LOWER EXTREMITY (WRVU 2.7) performed by Parrish Betancourt MD at [facility] OR ? ? PRO DEBRIDEMENT MUSCLE AND FASCIA 20 SQ CM/< Left 02/26/2022 DEBRIDEMENT SKIN, SUBCU, MUSCLE, UPPER EXTREMITY (WRVU 2.7) performed by Parrish Betancourt MD at [facility] OR ? ? PRO DEBRIDEMENT SUBCUTANEOUS TISSUE 20 SQCM/< Left 02/04/2022 DEBRIDEMENT SKIN AND SUBCU, UPPER EXTREMITY (WRVU 1.01) performed by Sigifredo Garcia [facility] ? ? PRO DEBRIDEMENT SUBCUTANEOUS TISSUE 20 SQCM/< Left 02/08/2022 DEBRIDEMENT SKIN AND SUBCU, LOWER EXTREMITY (WRVU 1.01) performed by Jeanette Chatterjee MD at [facility] OR ? ? PRO DEBRIDEMENT SUBCUTANEOUS TISSUE 20 SQCM/< Left 02/09/2022 DEBRIDEMENT SKIN AND SUBCU, LOWER EXTREMITY (WRVU 1.01) performed by Jeanette Chatterjee MD at [facility] OR ? ? PRO DEBRIDEMENT SUBCUTANEOUS TISSUE 20 SQCM/< Left 02/11/2022 DEBRIDEMENT SKIN AND SUBCU, LOWER EXTREMITY (WRVU 1.01) performed by Parrish Betancourt MD at [facility] OR ? ? PRO DEBRIDEMENT SUBCUTANEOUS TISSUE 20 SQCM/< Left 02/13/2022 DEBRIDEMENT SKIN AND SUBCU, LOWER EXTREMITY (WRVU 1.01) performed by Jeanette Chatterjee MD at [facility] OR ? ? PRO DEBRIDEMENT SUBCUTANEOUS TISSUE 20 SQCM/< Left 02/15/2022 DEBRIDEMENT SKIN AND SUBCU, LOWER EXTREMITY (WRVU 1.01) performed by Jayme Armstrong MD at [facility] OR ? ? PRO DEBRIDEMENT SUBCUTANEOUS TISSUE 20 SQCM/< Left 02/17/2022 DEBRIDEMENT SKIN AND SUBCU, LOWER EXTREMITY (WRVU 1.01) performed by Jayme Armstrong MD at [facility] OR ??? PRO DECOMP FOREARM, 2 COMPART, W/O DEBRIDE Left 01/23/2022 FASCIOTOMY; FOREARM AND\OR WRIST, FLEXOR & EXTENS. COMP (WRVU 10.79) performed by Sigifredo Garcia MD at [facility] OR ??? PRO DECOMPRESS ANT/LAT+POST LEG CMPART Left 01/23/2022 FASCIOTOMY, LOWER LEG, ALL COMPARTMENTS (WRVU 7.82) performed by Sigifredo Garcia MD at [facility] OR ??? PRO DRESSING CHANGE UNDER ANESTHESIA Left 02/11/2022 DRESSING CHANGE (FOR OTHER THAN GALLOWAY) UNDER ANES., UPPER EXTREMITY (WRVU 0.86) performed by Parrish Betancourt MD at [facility] OR ??? PRO DRESSING CHANGE UNDER ANESTHESIA Left 02/13/2022 DRESSING CHANGE (FOR OTHER THAN GALLOWAY) UNDER ANES., UPPER EXTREMITY (WRVU 0.86) performed by Jeanette Chatterjee MD at [facility] OR ??? PRO DRESSING CHANGE UNDER ANESTHESIA Left 02/17/2022 DRESSING CHANGE (FOR OTHER THAN GALLOWAY) UNDER ANES., UPPER EXTREMITY (WRVU 0.86) performed by Jayme Armstrong MD at [facility] OR ??? PRO DRESSING CHANGE UNDER ANESTHESIA Left 02/19/2022 DRESSING CHANGE (FOR OTHER THAN GALLOWAY) UNDER ANES., UPPER EXTREMITY (WRVU 0.86) performed by Jayme Armstrong MD at [facility] OR ??? PRO DRESSING CHANGE UNDER ANESTHESIA Left 02/22/2022 DRESSING CHANGE (FOR OTHER THAN GALLOWAY) UNDER ANES., UPPER EXTREMITY (WRVU 0.86) performed by Parrish Betancourt MD at [facility] OR ??? PRO DRESSING CHANGE UNDER ANESTHESIA Left 02/24/2022 DRESSING CHANGE (FOR OTHER THAN GALLOWAY) UNDER ANES., UPPER EXTREMITY (WRVU 0.86) performed by Parrish Betancourt MD at [facility] OR ??? PRO DRESSING CHANGE UNDER ANESTHESIA Left 02/26/2022 DRESSING CHANGE (FOR OTHER THAN GALLOWAY) UNDER ANES., LOWER EXTREMITY (WRVU 0.86) performed by Parrish Betancourt MD at [facility] OR ??? PRO DRESSING CHANGE UNDER ANESTHESIA Left 02/26/2022 DRESSING CHANGE (FOR OTHER THAN GALLOWAY) UNDER ANES., UPPER EXTREMITY (WRVU 0.86) performed by Parrish Betancourt MD at [facility] OR ??? PRO DRESSING CHANGE UNDER ANESTHESIA Left 03/01/2022 DRESSING CHANGE (FOR OTHER THAN GALLOWAY) UNDER ANES., LOWER EXTREMITY (WRVU 0.86) performed by Willie Sanabria MD at [facility] OR ??? PRO DRESSING CHANGE UNDER ANESTHESIA N/A 03/01/2022 DRESSING CHANGE (FOR OTHER THAN GALLOWAY) UNDER ANES., UPPER EXTREMITY (WRVU 0.86) performed by Willie Sanabria MD at [facility] OR ? ? PRO I&D DEEP ABSCESS BURSA/HEMATOMA THIGH/KNEE REGION Left 02/06/2022 INCISION & DRAINAGE ABSCESS OR HEMATOMA, THIGH, KNEE SUPERFICIAL (WRVU 6.78) performed by Jayme Armstrong MD at [facility] OR ??? PRO INCIS OF HIP/THIGH FASCIA Left 01/23/2022 @FASCIOTOMY,THIGH OR HIP FOR COMPARTMENT SYNDROME (WRVU 12.89) performed by Sigifredo Garcia MD at [facility] OR ??? PRO NEGATIVE PRESSURE WOUND THERAPY, LESS THAN OR EQUAL TO 50 SQCM Left 02/05/2022 DRESSING CHANGE (VAC ASSISTED) UP TO 50SQ.CM (WRVU 0.55) performed by Orville Hennessy MD at [facility] OR ??? PRO NEGATIVE PRESSURE WOUND THERAPY, LESS THAN OR EQUAL TO 50 SQCM Left 02/05/2022 DRESSING CHANGE (VAC ASSISTED) UP TO 50SQ.CM (WRVU 0.55) performed by oTm Valdovinos MD at [facility] MAIN OR ??? PRO NEGATIVE PRESSURE WOUND THERAPY, LESS THAN OR EQUAL TO 50 SQCM Left 02/08/2022 DRESSING CHANGE (VAC ASSISTED) UP TO 50SQ.CM (WRVU 0.55) performed by Jeanette Chatterjee MD at [facility] MAIN OR ??? PRO NEGATIVE PRESSURE WOUND THERAPY, LESS THAN OR EQUAL TO 50 SQCM Left 03/03/2022 DRESSING CHANGE (VAC ASSISTED) UP TO 50SQ.CM (WRVU 0.55) performed by Willie Sanabria MD at [facility] MAIN OR ??? PRO OPEN TREAT MANDIBLE CONDYLE FX, COMPL 04/27/2013 OPEN TREATMENT, COMPLEX MANDIBLE FX., MULTI APPROACH, W/ FIXATION performed by Kishore Neil MD at [facility] OR ??? PRO REVISE MEDIAN N/CARPAL TUNNEL SURG Left 01/23/2022 MEDIAN NERVE DECOMPRESSION (CARPAL TUNNEL RELEASE) (WRVU 4.97) performed by Sigifredo Garcia MD at [facility] MAIN OR ??? PRO SEC CLSR SURG WOUND/DEHSN EXTENSIVE/COMPLICATED Left 01/26/2022 SECONDARY CLOSURE SURGICAL WOUND OR DEHISCENCE, EXTENSIVE OR COMPLICATED, UPPER EXTREMITY (WRVU 12.04) performed by Sigifredo Garcia MD at [facility] MAIN OR Current Facility-Administered Medications: ??? [...] 1 tablet, 1 tablet, Oral, Daily, Veto Hidaglo MD, 1 tablet at 03/09/22919 ??? sodium [...] Jenkins MD - 03/03/2022 4:42 AM EDT [facility] Acute Care H&P HPI: Alix Holland??is [...] and transferred to floor status on 7/13. ?? His hospital course has also been [...] change, LUE 03/01: washout and wound vac change consultant LUE, LLE and gluteal area. ? Interval [...] Arteriogram Lower Extremity 02/06/2022 Nicole Vivas MD [facility] INTERVENTIONL RAD ??? PRO DEBRIDEMENT BONE EA ADDL 20 SQCM 02/08/2022 EACH ADDITIONAL 20 SQ CM, OR PART THEREOF (WRVU 1.8) performed by Jeanette Chatterjee MD at [facility] ? ? PRO DEBRIDEMENT BONE MUSCLE &/FASCIA 20 SQ CM/< Left 01/29/2022 DEBRIDEMENT SKIN, SUBCU, MUSCLE, BONE, LOWER EXTREMITY (WRVU 4.1) performed by Tom Valdovinos MD [facility] MAIN OR ? ? PRO DEBRIDEMENT BONE MUSCLE &/FASCIA 20 SQ CM/< Left 01/31/2022 DEBRIDEMENT SKIN, SUBCU, MUSCLE, BONE, LOWER EXTREMITY (WRVU 4.1) performed by Jose Branch MD at [facility] MAIN OR ? ? PRO DEBRIDEMENT BONE MUSCLE &/FASCIA 20 SQ CM/< Left 01/31/2022 DEBRIDEMENT SKIN, SUBCU, MUSCLE, BONE UPPER EXTREMITY (WRVU 4.1) performed by Jose Branch MDat [facility] MAIN OR ? ? PRO DEBRIDEMENT BONE MUSCLE &/FASCIA 20 SQ CM/< Left 02/02/2022 DEBRIDEMENT SKIN, SUBCU, MUSCLE, BONE UPPER EXTREMITY (WRVU 4.1) performed by Hina Starks MD at [facility] MAIN OR ? ? PRO DEBRIDEMENT BONE MUSCLE &/FASCIA 20 SQ CM/< Left 02/02/2022 DEBRIDEMENT SKIN, SUBCU, MUSCLE, BONE, LOWER EXTREMITY (WRVU 4.1) performed by Hina Starks MD at [facility] OR ? ? PRO DEBRIDEMENT MUSCLE AND FASCIA 20 SQ CM/< Left 01/26/2022 DEBRIDEMENT SKIN, SUBCU, MUSCLE, LOWER EXTREMITY (WRVU 2.7) performed by Sigifredo Garcia MD at [facility] MAIN OR ? ? PRO DEBRIDEMENT MUSCLE AND FASCIA 20 SQ CM/< Left 01/26/2022 DEBRIDEMENT SKIN, SUBCU, MUSCLE, UPPER EXTREMITY (WRVU 2.7) performed by Sigifredo Garcia MD at [facility] OR ? ? PRO DEBRIDEMENT MUSCLE AND FASCIA 20 SQ CM/< Left 02/05/2022 DEBRIDEMENT SKIN, SUBCU, MUSCLE, LOWER EXTREMITY (WRVU 2.7) performed by Tom Valdovinos MD at [facility] OR ? ? PRO DEBRIDEMENT MUSCLE AND FASCIA 20 SQ CM/< Left 02/04/2022 DEBRIDEMENT SKIN, SUBCU, MUSCLE, LOWER EXTREMITY (WRVU 2.7) performed by Sigifredo Garcia MD at [facility] MAIN OR ? ? PRO DEBRIDEMENT MUSCLE AND FASCIA 20 SQ CM/< Left 02/15/2022 DEBRIDEMENT SKIN, SUBCU, MUSCLE, UPPER EXTREMITY (WRVU 2.7) performed by Jayme Armstrong MD at [facility] OR ? ? PRO DEBRIDEMENT MUSCLE AND FASCIA 20 SQ CM/< Left 02/19/2022 DEBRIDEMENT SKIN, SUBCU, MUSCLE, LOWER EXTREMITY (WRVU 2.7) performed by Jayme Armstrong MD at [facility] MAIN OR ? ? PRO DEBRIDEMENT MUSCLE AND FASCIA 20 SQ CM/< Left 02/22/2022 DEBRIDEMENT SKIN, SUBCU, MUSCLE, LOWER EXTREMITY (WRVU 2.7) performed by Parrish Betancourt MD at [facility] OR ? ? PRO DEBRIDEMENT MUSCLE AND FASCIA 20 SQ CM/< Left 02/24/2022 DEBRIDEMENT SKIN, SUBCU, MUSCLE, LOWER EXTREMITY (WRVU 2.7) performed by Parrish Betancourt MD at [facility] OR ? ? PRO DEBRIDEMENT MUSCLE AND FASCIA 20 SQ CM/< Left 02/26/2022 DEBRIDEMENT SKIN, SUBCU, MUSCLE, UPPER EXTREMITY (WRVU 2.7) performed by Parrish Betancourt MD at [facility] OR ? ? PRO DEBRIDEMENT SUBCUTANEOUS TISSUE 20 SQCM/< Left 02/04/2022 DEBRIDEMENT SKIN AND SUBCU, UPPER EXTREMITY (WRVU 1.01) performed [facility] ? ? PRO DEBRIDEMENT SUBCUTANEOUS TISSUE 20 SQCM/< Left 02/08/2022 DEBRIDEMENT SKIN AND SUBCU, LOWER EXTREMITY (WRVU 1.01) performed by Jeanette Chatterjee MD at [facility] OR ? ? PRO DEBRIDEMENT SUBCUTANEOUS TISSUE 20 SQCM/< Left 02/09/2022 DEBRIDEMENT SKIN AND SUBCU, LOWER EXTREMITY (WRVU 1.01) performed by Jeanette Chatterjee MD at [facility] OR ? ? PRO DEBRIDEMENT SUBCUTANEOUS TISSUE 20 SQCM/< Left 02/11/2022 DEBRIDEMENT SKIN AND SUBCU, LOWER EXTREMITY (WRVU 1.01) performed by Parrish Betancourt MD at [facility] OR ? ? PRO DEBRIDEMENT SUBCUTANEOUS TISSUE 20 SQCM/< Left 02/13/2022 DEBRIDEMENT SKIN AND SUBCU, LOWER EXTREMITY (WRVU 1.01) performed by Jeanette Chatterjee MD at [facility] OR ? ? PRO DEBRIDEMENT SUBCUTANEOUS TISSUE 20 SQCM/< Left 02/15/2022 DEBRIDEMENT SKIN AND SUBCU, LOWER EXTREMITY (WRVU 1.01) performed by Jayme Armstrong MD at [facility] OR ? ? PRO DEBRIDEMENT SUBCUTANEOUS TISSUE 20 SQCM/< Left 02/17/2022 DEBRIDEMENT SKIN AND SUBCU, LOWER EXTREMITY (WRVU 1.01) performed by Jayme Armstrong MD at [facility] OR ??? PRO DECOMP FOREARM, 2 COMPART, W/O DEBRIDE Left 01/23/2022 FASCIOTOMY; FOREARM AND\OR WRIST, FLEXOR & EXTENS. COMP (WRVU 10.79) performed by Sigifredo Garcia MD at [facility] OR ??? PRO DECOMPRESS ANT/LAT+POST LEG CMPART Left 01/23/2022 FASCIOTOMY, LOWER LEG, ALL COMPARTMENTS (WRVU 7.82) performed by Sigifredo Garcia MD at [facility] OR ??? PRO DRESSING CHANGE UNDER ANESTHESIA Left 02/11/2022 DRESSING CHANGE (FOR OTHER THAN GALLOWAY) UNDER ANES., UPPER EXTREMITY (WRVU 0.86) performed by Parrish Betancourt MD at [facility] OR ??? PRO DRESSING CHANGE UNDER ANESTHESIA Left 02/13/2022 DRESSING CHANGE (FOR OTHER THAN GALLOWAY) UNDER ANES., UPPER EXTREMITY (WRVU 0.86) performed by Jeanette Chatterjee MD at [facility] OR ??? PRO DRESSING CHANGE UNDER ANESTHESIA Left 02/17/2022 DRESSING CHANGE (FOR OTHER THAN GALLOWAY) UNDER ANES., UPPER EXTREMITY (WRVU 0.86) performed by Jayme Armstrong MD at [facility] OR ??? PRO DRESSING CHANGE UNDER ANESTHESIA Left 02/19/2022 DRESSING CHANGE (FOR OTHER THAN GALLOWAY) UNDER ANES., UPPER EXTREMITY (WRVU 0.86) performed by Jayme Armstrong MD at [facility] OR ??? PRO DRESSING CHANGE UNDER ANESTHESIA Left 02/22/2022 DRESSING CHANGE (FOR OTHER THAN GALLOWAY) UNDER ANES., UPPER EXTREMITY (WRVU 0.86) performed by Parrish Betancourt MD at [facility] OR ??? PRO DRESSING CHANGE UNDER ANESTHESIA Left 02/24/2022 DRESSING CHANGE (FOR OTHER THAN GALLOWAY) UNDER ANES., UPPER EXTREMITY (WRVU 0.86) performed by Parrish Betancourt MD at [facility] OR ??? PRO DRESSING CHANGE UNDER ANESTHESIA Left 02/26/2022 DRESSING CHANGE (FOR OTHER THAN GALLOWAY) UNDER ANES., LOWER EXTREMITY (WRVU 0.86) performed by Parrish Betancourt MD at [facility] OR ??? PRO DRESSING CHANGE UNDER ANESTHESIA Left 02/26/2022 DRESSING CHANGE (FOR OTHER THAN GALLOWAY) UNDER ANES., UPPER EXTREMITY (WRVU 0.86) performed by Parrish Betancourt MD at [facility] OR ??? PRO DRESSING CHANGE UNDER ANESTHESIA Left 03/01/2022 DRESSING CHANGE (FOR OTHER THAN GALLOWAY) UNDER ANES., LOWER EXTREMITY (WRVU 0.86) performed by Willie Sanabria MD at [facility] OR ??? PRO DRESSING CHANGE UNDER ANESTHESIA N/A 03/01/2022 DRESSING CHANGE (FOR OTHER THAN GALLOWAY) UNDER ANES., UPPER EXTREMITY (WRVU 0.86) performed by Willie Sanabria MD at [facility] OR ? ? PRO I&D DEEP ABSCESS BURSA/HEMATOMA THIGH/KNEE REGION Left 02/06/2022 INCISION & DRAINAGE ABSCESS OR HEMATOMA, THIGH, KNEE SUPERFICIAL (WRVU 6.78) performed by Jayme Armstrong MD at [facility] OR ??? PRO INCIS OF HIP/THIGH FASCIA Left 01/23/2022 @FASCIOTOMY,THIGH OR HIP FOR COMPARTMENT SYNDROME (WRVU 12.89) performed by Sigifredo Garcia MD at [facility] OR ??? PRO NEGATIVE PRESSURE WOUND THERAPY, LESS THAN OR EQUAL TO 50 SQCM Left 02/05/2022 DRESSING CHANGE (VAC ASSISTED) UP TO 50SQ.CM (WRVU 0.55) performed by Orville Hennessy MD at [facility] OR ??? PRO NEGATIVE PRESSURE WOUND THERAPY, LESS THAN OR EQUAL TO 50 SQCM Left 02/05/2022 DRESSING CHANGE (VAC ASSISTED) UP TO 50SQ.CM (WRVU 0.55) performed by Tom Valdovinos MD at [facility] OR ??? PRO NEGATIVE PRESSURE WOUND THERAPY, LESS THAN OR EQUAL TO 50 SQCM Left 02/08/2022 DRESSING CHANGE (VAC ASSISTED) UP TO 50SQ.CM (WRVU 0.55) performed by Jeanette Chatterjee MD at [facility] OR ??? PRO OPEN TREAT MANDIBLE CONDYLE FX, COMPL 04/27/2013 OPEN TREATMENT, COMPLEX MANDIBLE FX., MULTI APPROACH, W/ FIXATION performed by Kishore Neil MD at [facility] MAIN OR ??? PRO REVISE MEDIAN N/CARPAL TUNNEL SURG Left 01/23/2022 MEDIAN NERVE DECOMPRESSION (CARPAL TUNNEL RELEASE) (WRVU 4.97) performed by Sigifredo Garcia MD at [facility] MAIN OR ??? PRO SEC CLSR SURG WOUND/DEHSN EXTENSIVE/COMPLICATED Left 01/26/2022 SECONDARY CLOSURE SURGICAL WOUND OR DEHISCENCE, EXTENSIVE OR COMPLICATED, UPPER EXTREMITY (WRVU 12.04) performed by Sigifredo Garcia MD at [facility] MAIN OR MEDICATIONS: No current facility-administered [...] Jenkins MD - 03/01/2022 5:58 AM EDT [facility] Acute Care Surgery H&P HPI and [...] Arteriogram Lower Extremity 02/06/2022 Nicole Vivas MD [facility] INTERVENTIONL RAD ??? PRO DEBRIDEMENT BONE EA ADDL 20 SQCM 02/08/2022 EACH ADDITIONAL 20 SQ CM, OR PART THEREOF (WRVU 1.8) performed by Jeanette Chatterjee MD at [facility] PAIGE ? ? PRO DEBRIDEMENT BONE MUSCLE &/FASCIA 20 SQ CM/< Left 01/29/2022 DEBRIDEMENT SKIN, SUBCU, MUSCLE, BONE, LOWER EXTREMITY (WRVU 4.1) performed by Tom Valdovinos MD [facility] MAIN OR ? ? PRO DEBRIDEMENT BONE MUSCLE &/FASCIA 20 SQ CM/< Left 01/31/2022 DEBRIDEMENT SKIN, SUBCU, MUSCLE, BONE, LOWER EXTREMITY (WRVU 4.1) performed by Jose Branch MD at [facility] MAIN OR ? ? PRO DEBRIDEMENT BONE MUSCLE &/FASCIA 20 SQ CM/< Left 01/31/2022 DEBRIDEMENT SKIN, SUBCU, MUSCLE, BONE UPPER EXTREMITY (WRVU 4.1) performed by Jose Branch MDat [facility] MAIN OR ? ? PRO DEBRIDEMENT BONE MUSCLE &/FASCIA 20 SQ CM/< Left 02/02/2022 DEBRIDEMENT SKIN, SUBCU, MUSCLE, BONE UPPER EXTREMITY (WRVU 4.1) performed by Hina Starks MD at [facility] MAIN OR ? ? PRO DEBRIDEMENT BONE MUSCLE &/FASCIA 20 SQ CM/< Left 02/02/2022 DEBRIDEMENT SKIN, SUBCU, MUSCLE, BONE, LOWER EXTREMITY (WRVU 4.1) performed by Hina Starks MD at [facility] MAIN OR ? ? PRO DEBRIDEMENT MUSCLE AND FASCIA 20 SQ CM/< Left 01/26/2022 DEBRIDEMENT SKIN, SUBCU, MUSCLE, LOWER EXTREMITY (WRVU 2.7) performed by Sigifredo Garcia MD at [facility] OR ? ? PRO DEBRIDEMENT MUSCLE AND FASCIA 20 SQ CM/< Left 01/26/2022 DEBRIDEMENT SKIN, SUBCU, MUSCLE, UPPER EXTREMITY (WRVU 2.7) performed by Sigifredo Garcia MD at [facility] OR ? ? PRO DEBRIDEMENT MUSCLE AND FASCIA 20 SQ CM/< Left 02/05/2022 DEBRIDEMENT SKIN, SUBCU, MUSCLE, LOWER EXTREMITY (WRVU 2.7) performed by Tom Valdovinos MD at [facility] OR ? ? PRO DEBRIDEMENT MUSCLE AND FASCIA 20 SQ CM/< Left 02/04/2022 DEBRIDEMENT SKIN, SUBCU, MUSCLE, LOWER EXTREMITY (WRVU 2.7) performed by Sigifredo Garcia MD at [facility] OR ? ? PRO DEBRIDEMENT MUSCLE AND FASCIA 20 SQ CM/< Left 02/15/2022 DEBRIDEMENT SKIN, SUBCU, MUSCLE, UPPER EXTREMITY (WRVU 2.7) performed by Jayme Armstrong MD at [facility] OR ? ? PRO DEBRIDEMENT MUSCLE AND FASCIA 20 SQ CM/< Left 02/19/2022 DEBRIDEMENT SKIN, SUBCU, MUSCLE, LOWER EXTREMITY (WRVU 2.7) performed by Jayme Armstrong MD at [facility] OR ? ? PRO DEBRIDEMENT MUSCLE AND FASCIA 20 SQ CM/< Left 02/22/2022 DEBRIDEMENT SKIN, SUBCU, MUSCLE, LOWER EXTREMITY (WRVU 2.7) performed by Parrish Betancourt MD at [facility] OR ? ? PRO DEBRIDEMENT MUSCLE AND FASCIA 20 SQ CM/< Left 02/24/2022 DEBRIDEMENT SKIN, SUBCU, MUSCLE, LOWER EXTREMITY (WRVU 2.7) performed by Parrish Betancourt MD at [facility] OR ? ? PRO DEBRIDEMENT MUSCLE AND FASCIA 20 SQ CM/< Left 02/26/2022 DEBRIDEMENT SKIN, SUBCU, MUSCLE, UPPER EXTREMITY (WRVU 2.7) performed by Parrish Betancourt MD at [facility] OR ? ? PRO DEBRIDEMENT SUBCUTANEOUS TISSUE 20 SQCM/< Left 02/04/2022 DEBRIDEMENT SKIN AND SUBCU, UPPER EXTREMITY (WRVU 1.01) performed [facility] ? ? PRO DEBRIDEMENT SUBCUTANEOUS TISSUE 20 SQCM/< Left 02/08/2022 DEBRIDEMENT SKIN AND SUBCU, LOWER EXTREMITY (WRVU 1.01) performed by Jeanette Chatterjee MD at [facility] OR ? ? PRO DEBRIDEMENT SUBCUTANEOUS TISSUE 20 SQCM/< Left 02/09/2022 DEBRIDEMENT SKIN AND SUBCU, LOWER EXTREMITY (WRVU 1.01) performed by Jeanette Chatterjee MD at [facility] OR ? ? PRO DEBRIDEMENT SUBCUTANEOUS TISSUE 20 SQCM/< Left 02/11/2022 DEBRIDEMENT SKIN AND SUBCU, LOWER EXTREMITY (WRVU 1.01) performed by Parrish Betancourt MD at [facility] OR ? ? PRO DEBRIDEMENT SUBCUTANEOUS TISSUE 20 SQCM/< Left 02/13/2022 DEBRIDEMENT SKIN AND SUBCU, LOWER EXTREMITY (WRVU 1.01) performed by Jeanette Chatterjee MD at [facility] OR ? ? PRO DEBRIDEMENT SUBCUTANEOUS TISSUE 20 SQCM/< Left 02/15/2022 DEBRIDEMENT SKIN AND SUBCU, LOWER EXTREMITY (WRVU 1.01) performed by Jayme Armstrong MD at [facility] OR ? ? PRO DEBRIDEMENT SUBCUTANEOUS TISSUE 20 SQCM/< Left 02/17/2022 DEBRIDEMENT SKIN AND SUBCU, LOWER EXTREMITY (WRVU 1.01) performed by Jayme Armstrong MD at [facility] OR ??? PRO DECOMP FOREARM, 2 COMPART, W/O DEBRIDE Left 01/23/2022 FASCIOTOMY; FOREARM AND\OR WRIST, FLEXOR & EXTENS. COMP (WRVU 10.79) performed by Sigifredo Garcia MD at [facility] OR ??? PRO DECOMPRESS ANT/LAT+POST LEG CMPART Left 01/23/2022 FASCIOTOMY, LOWER LEG, ALL COMPARTMENTS (WRVU 7.82) performed by Sigifredo Garcia MD at [facility] OR ??? PRO DRESSING CHANGE UNDER ANESTHESIA Left 02/11/2022 DRESSING CHANGE (FOR OTHER THAN GALLOWAY) UNDER ANES., UPPER EXTREMITY (WRVU 0.86) performed by Parrish Betancourt MD at [facility] OR ??? PRO DRESSING CHANGE UNDER ANESTHESIA Left 02/13/2022 DRESSING CHANGE (FOR OTHER THAN GALLOWAY) UNDER ANES., UPPER EXTREMITY (WRVU 0.86) performed by Jeanette Chatterjee MD at [facility] OR ??? PRO DRESSING CHANGE UNDER ANESTHESIA Left 02/17/2022 DRESSING CHANGE (FOR OTHER THAN GALLOWAY) UNDER ANES., UPPER EXTREMITY (WRVU 0.86) performed by Jayme Armstrong MD at [facility] OR ??? PRO DRESSING CHANGE UNDER ANESTHESIA Left 02/19/2022 DRESSING CHANGE (FOR OTHER THAN GALLOWAY) UNDER ANES., UPPER EXTREMITY (WRVU 0.86) performed by Jayme Armstrong MD at [facility] OR ??? PRO DRESSING CHANGE UNDER ANESTHESIA Left 02/22/2022 DRESSING CHANGE (FOR OTHER THAN GALLOWAY) UNDER ANES., UPPER EXTREMITY (WRVU 0.86) performed by Parrish Betancourt MD at [facility] OR ??? PRO DRESSING CHANGE UNDER ANESTHESIA Left 02/24/2022 DRESSING CHANGE (FOR OTHER THAN GALLOWAY) UNDER ANES., UPPER EXTREMITY (WRVU 0.86) performed by Parrish Betancourt MD at [facility] OR ??? PRO DRESSING CHANGE UNDER ANESTHESIA Left 02/26/2022 DRESSING CHANGE (FOR OTHER THAN GALLOWAY) UNDER ANES., LOWER EXTREMITY (WRVU 0.86) performed by Parrish Betancourt MD at [facility] OR ??? PRO DRESSING CHANGE UNDER ANESTHESIA Left 02/26/2022 DRESSING CHANGE (FOR OTHER THAN GALLOWAY) UNDER ANES., UPPER EXTREMITY (WRVU 0.86) performed by Parrish Betancourt MD at [facility] OR ? ? PRO I&D DEEP ABSCESS BURSA/HEMATOMA THIGH/KNEE REGION Left 02/06/2022 INCISION & DRAINAGE ABSCESS OR HEMATOMA, THIGH, KNEE SUPERFICIAL (WRVU 6.78) performed by Jayme Armstrong MD at [facility] OR ??? PRO INCIS OF HIP/THIGH FASCIA Left 01/23/2022 @FASCIOTOMY,THIGH OR HIP FOR COMPARTMENT SYNDROME (WRVU 12.89) performed by Sigifredo Garcia MD at [facility] OR ??? PRO NEGATIVE PRESSURE WOUND THERAPY, LESS THAN OR EQUAL TO 50 SQCM Left 02/05/2022 DRESSING CHANGE (VAC ASSISTED) UP TO 50SQ.CM (WRVU 0.55) performed by Orville Hennessy MD at [facility] MAIN OR ??? PRO NEGATIVE PRESSURE WOUND THERAPY, LESS THAN OR EQUAL TO 50 SQCM Left 02/05/2022 DRESSING CHANGE (VAC ASSISTED) UP TO 50SQ.CM (WRVU 0.55) performed by Tom Valdovinos MD at [facility] MAIN OR ??? PRO NEGATIVE PRESSURE WOUND THERAPY, LESS THAN OR EQUAL TO 50 SQCM Left 02/08/2022 DRESSING CHANGE (VAC ASSISTED) UP TO 50SQ.CM (WRVU 0.55) performed by Jeanette Chatterjee MD at [facility] MAIN OR ??? PRO OPEN TREAT MANDIBLE CONDYLE FX, COMPL 04/27/2013 OPEN TREATMENT, COMPLEX MANDIBLE FX., MULTI APPROACH, W/ FIXATION performed by Kishore Neil MD at [facility] MAIN OR ??? PRO REVISE MEDIAN N/CARPAL TUNNEL SURG Left 01/23/2022 MEDIAN NERVE DECOMPRESSION (CARPAL TUNNEL RELEASE) (WRVU 4.97) performed by Sigifredo Garcia MD at [facility] MAIN OR ??? PRO SEC CLSR SURG WOUND/DEHSN EXTENSIVE/COMPLICATED Left 01/26/2022 SECONDARY CLOSURE SURGICAL WOUND OR DEHISCENCE, EXTENSIVE OR COMPLICATED, UPPER EXTREMITY (WRVU 12.04) performed by Sigifredo Garcia MD at [facility] MAIN OR MEDICATIONS: No current facility-administered [...] date: 01/23/2022 Attending Physician: Allison Kelly MD [facility] General Surgery History and Physical Alix [...] Arteriogram Lower Extremity 02/06/2022 Nicole Vivas MD [facility] INTERVENTIONL RAD ??? PRO DEBRIDEMENT BONE EA ADDL 20 SQCM 02/08/2022 EACH ADDITIONAL 20 SQ CM, OR PART THEREOF (WRVU 1.8) performed by Jeanette Chatterjee MD at [facility] ? ? PRO DEBRIDEMENT BONE MUSCLE &/FASCIA 20 SQ CM/< Left 01/29/2022 DEBRIDEMENT SKIN, SUBCU, MUSCLE, BONE, LOWER EXTREMITY (WRVU 4.1) performed by Tom Valdovinos MD [facility] MAIN OR ? ? PRO DEBRIDEMENT BONE MUSCLE &/FASCIA 20 SQ CM/< Left 01/31/2022 DEBRIDEMENT SKIN, SUBCU, MUSCLE, BONE, LOWER EXTREMITY (WRVU 4.1) performed by Jose Branch MD at [facility] MAIN OR ? ? PRO DEBRIDEMENT BONE MUSCLE &/FASCIA 20 SQ CM/< Left 01/31/2022 DEBRIDEMENT SKIN, SUBCU, MUSCLE, BONE UPPER EXTREMITY (WRVU 4.1) performed by Jose Branch MDat [facility] MAIN OR ? ? PRO DEBRIDEMENT BONE MUSCLE &/FASCIA 20 SQ CM/< Left 02/02/2022 DEBRIDEMENT SKIN, SUBCU, MUSCLE, BONE UPPER EXTREMITY (WRVU 4.1) performed by Hina Starks MD at [facility] OR ? ? PRO DEBRIDEMENT BONE MUSCLE &/FASCIA 20 SQ CM/< Left 02/02/2022 DEBRIDEMENT SKIN, SUBCU, MUSCLE, BONE, LOWER EXTREMITY (WRVU 4.1) performed by Hina Starks MD at [facility] MAIN OR ? ? PRO DEBRIDEMENT MUSCLE AND FASCIA 20 SQ CM/< Left 01/26/2022 DEBRIDEMENT SKIN, SUBCU, MUSCLE, LOWER EXTREMITY (WRVU 2.7) performed by Sigifredo Garcia MD at [facility] MAIN OR ? ? PRO DEBRIDEMENT MUSCLE AND FASCIA 20 SQ CM/< Left 01/26/2022 DEBRIDEMENT SKIN, SUBCU, MUSCLE, UPPER EXTREMITY (WRVU 2.7) performed by Sigifredo Garcia MD at [facility] MAIN OR ? ? PRO DEBRIDEMENT MUSCLE AND FASCIA 20 SQ CM/< Left 02/05/2022 DEBRIDEMENT SKIN, SUBCU, MUSCLE, LOWER EXTREMITY (WRVU 2.7) performed by Tom Valdovinos MD at [facility] OR ? ? PRO DEBRIDEMENT MUSCLE AND FASCIA 20 SQ CM/< Left 02/04/2022 DEBRIDEMENT SKIN, SUBCU, MUSCLE, LOWER EXTREMITY (WRVU 2.7) performed by Sigifredo Garcia MD at [facility] MAIN OR ? ? PRO DEBRIDEMENT MUSCLE AND FASCIA 20 SQ CM/< Left 02/15/2022 DEBRIDEMENT SKIN, SUBCU, MUSCLE, UPPER EXTREMITY (WRVU 2.7) performed by Jayme Armstrong MD at [facility] OR ? ? PRO DEBRIDEMENT MUSCLE AND FASCIA 20 SQ CM/< Left 02/19/2022 DEBRIDEMENT SKIN, SUBCU, MUSCLE, LOWER EXTREMITY (WRVU 2.7) performed by Jayme Armstrong MD at [facility] OR ? ? PRO DEBRIDEMENT MUSCLE AND FASCIA 20 SQ CM/< Left 02/22/2022 DEBRIDEMENT SKIN, SUBCU, MUSCLE, LOWER EXTREMITY (WRVU 2.7) performed by Parrish Betancourt MD at [facility] OR ? ? PRO DEBRIDEMENT MUSCLE AND FASCIA 20 SQ CM/< Left 02/24/2022 DEBRIDEMENT SKIN, SUBCU, MUSCLE, LOWER EXTREMITY (WRVU 2.7) performed by Parrish Betancourt MD at [facility] OR ? ? PRO DEBRIDEMENT SUBCUTANEOUS TISSUE 20 SQCM/< Left 02/04/2022 DEBRIDEMENT SKIN AND SUBCU, UPPER EXTREMITY (WRVU 1.01) performed [facility] ? ? PRO DEBRIDEMENT SUBCUTANEOUS TISSUE 20 SQCM/< Left 02/08/2022 DEBRIDEMENT SKIN AND SUBCU, LOWER EXTREMITY (WRVU 1.01) performed by Jeanette Chatterjee MD at [facility] OR ? ? PRO DEBRIDEMENT SUBCUTANEOUS TISSUE 20 SQCM/< Left 02/09/2022 DEBRIDEMENT SKIN AND SUBCU, LOWER EXTREMITY (WRVU 1.01) performed by Jeanette Chatterjee MD at [facility] OR ? ? PRO DEBRIDEMENT SUBCUTANEOUS TISSUE 20 SQCM/< Left 02/11/2022 DEBRIDEMENT SKIN AND SUBCU, LOWER EXTREMITY (WRVU 1.01) performed by Parrish Betancourt MD at [facility] OR ? ? PRO DEBRIDEMENT SUBCUTANEOUS TISSUE 20 SQCM/< Left 02/13/2022 DEBRIDEMENT SKIN AND SUBCU, LOWER EXTREMITY (WRVU 1.01) performed by Jeanette Chatterjee MD at [facility] OR ? ? PRO DEBRIDEMENT SUBCUTANEOUS TISSUE 20 SQCM/< Left 02/15/2022 DEBRIDEMENT SKIN AND SUBCU, LOWER EXTREMITY (WRVU 1.01) performed by Jayme Armstrong MD at [facility] OR ? ? PRO DEBRIDEMENT SUBCUTANEOUS TISSUE 20 SQCM/< Left 02/17/2022 DEBRIDEMENT SKIN AND SUBCU, LOWER EXTREMITY (WRVU 1.01) [facility] ??? PRO DECOMP FOREARM, 2 COMPART, W/O DEBRIDE Left 01/23/2022 FASCIOTOMY; FOREARM AND\OR WRIST, FLEXOR & EXTENS. COMP (WRVU 10.79) performed by Sigifredo Garcia MD at [facility] OR ??? PRO DECOMPRESS ANT/LAT+POST LEG CMPART Left 01/23/2022 FASCIOTOMY, LOWER LEG, ALL COMPARTMENTS (WRVU 7.82) performed by Sigifredo Garcia MD at [facility] OR ??? PRO DRESSING CHANGE UNDER ANESTHESIA Left 02/11/2022 DRESSING CHANGE (FOR OTHER THAN GALLOWAY) UNDER ANES., UPPER EXTREMITY (WRVU 0.86) performed by Parrish Betancourt MD at [facility] OR ??? PRO DRESSING CHANGE UNDER ANESTHESIA Left 02/13/2022 DRESSING CHANGE (FOR OTHER THAN GALLOWAY) UNDER ANES., UPPER EXTREMITY (WRVU 0.86) performed by Jeanette Chatterjee MD at [facility] OR ??? PRO DRESSING CHANGE UNDER ANESTHESIA Left 02/17/2022 DRESSING CHANGE (FOR OTHER THAN GALLOWAY) UNDER ANES., UPPER EXTREMITY (WRVU 0.86) performed by Jayme Armstrong MD at [facility] OR ??? PRO DRESSING CHANGE UNDER ANESTHESIA Left 02/19/2022 DRESSING CHANGE (FOR OTHER THAN GALLOWAY) UNDER ANES., UPPER EXTREMITY (WRVU 0.86) performed by Jayme Armstrong MD at [facility] OR ??? PRO DRESSING CHANGE UNDER ANESTHESIA Left 02/22/2022 DRESSING CHANGE (FOR OTHER THAN GALLOWAY) UNDER ANES., UPPER EXTREMITY (WRVU 0.86) performed by Parrish Betancourt MD at [facility] OR ??? PRO DRESSING CHANGE UNDER ANESTHESIA Left 02/24/2022 DRESSING CHANGE (FOR OTHER THAN GALLOWAY) UNDER ANES., UPPER EXTREMITY (WRVU 0.86) performed by Parrish Betancourt MD at [facility] OR ? ? PRO I&D DEEP ABSCESS BURSA/HEMATOMA THIGH/KNEE REGION Left 02/06/2022 INCISION & DRAINAGE ABSCESS OR HEMATOMA, THIGH, KNEE SUPERFICIAL (WRVU 6.78) performed by Jayme Armstrong MD at [facility] OR ??? PRO INCIS OF HIP/THIGH FASCIA Left 01/23/2022 @FASCIOTOMY,THIGH OR HIP FOR COMPARTMENT SYNDROME (WRVU 12.89) performed by Sigifredo Garcia MD at [facility] OR ??? PRO NEGATIVE PRESSURE WOUND THERAPY, LESS THAN OR EQUAL TO 50 SQCM Left 02/05/2022 DRESSING CHANGE (VAC ASSISTED) UP TO 50SQ.CM (WRVU 0.55) performed by Orville Hennessy MD at [facility] OR ??? PRO NEGATIVE PRESSURE WOUND THERAPY, LESS THAN OR EQUAL TO 50 SQCM Left 02/05/2022 DRESSING CHANGE (VAC ASSISTED) UP TO 50SQ.CM (WRVU 0.55) performed by Tom Valdovinos MD at [facility] OR ??? PRO NEGATIVE PRESSURE WOUND THERAPY, LESS THAN OR EQUAL TO 50 SQCM Left 02/08/2022 DRESSING CHANGE (VAC ASSISTED) UP TO 50SQ.CM (WRVU 0.55) performed by Jeanette Chatterjee MD at [facility] OR ??? PRO OPEN TREAT MANDIBLE CONDYLE FX, COMPL 04/27/2013 OPEN TREATMENT, COMPLEX MANDIBLE FX., MULTI APPROACH, W/ FIXATION performed by Kishore Neil MD at [facility] OR ??? PRO REVISE MEDIAN N/CARPAL TUNNEL SURG Left 01/23/2022 MEDIAN NERVE DECOMPRESSION (CARPAL TUNNEL RELEASE) (WRVU 4.97) performed by Sigifredo Garcia MD at [facility] OR ??? PRO SEC CLSR SURG WOUND/DEHSN EXTENSIVE/COMPLICATED Left 01/26/2022 SECONDARY CLOSURE SURGICAL WOUND OR DEHISCENCE, EXTENSIVE OR COMPLICATED, UPPER EXTREMITY (WRVU 12.04) performed by Sigifredo Garcia MD at [facility] OR Current Facility-Administered Medications: ??? epoetin salina-epbx (Retacrit) injection 20,000 units/mL 16,000 Units, 16,000 Units, Subcutaneous,Weekly, Nancy Chahal MD, 16,000 Units at 02/25/22 [id number] ??? amLODIPine (Norvasc) tablet 10 mg, 10 [...] date: 01/23/2022 Attending Physician: Allison Kelly MD [facility] General Surgery History and Physical Alix [...] Arteriogram Lower Extremity 02/06/2022 Nicole Vivas MD [facility] INTERVENTIONL RAD ??? PRO DEBRIDEMENT BONE EA ADDL 20 SQCM 02/08/2022 EACH ADDITIONAL 20 SQ CM, OR PART THEREOF (WRVU 1.8) performed by Jeanette Chatterjee MD at [facility] ? ? PRO DEBRIDEMENT BONE MUSCLE &/FASCIA 20 SQ CM/< Left 01/29/2022 DEBRIDEMENT SKIN, SUBCU, MUSCLE, BONE, LOWER EXTREMITY (WRVU 4.1) performed by Tom Valdovinos MD [facility] MAIN OR ? ? PRO DEBRIDEMENT BONE MUSCLE &/FASCIA 20 SQ CM/< Left 01/31/2022 DEBRIDEMENT SKIN, SUBCU, MUSCLE, BONE, LOWER EXTREMITY (WRVU 4.1) performed by Jose Branch MD at [facility] MAIN OR ? ? PRO DEBRIDEMENT BONE MUSCLE &/FASCIA 20 SQ CM/< Left 01/31/2022 DEBRIDEMENT SKIN, SUBCU, MUSCLE, BONE UPPER EXTREMITY (WRVU 4.1) performed by Jose Branch MDat [facility] MAIN OR ? ? PRO DEBRIDEMENT BONE MUSCLE &/FASCIA 20 SQ CM/< Left 02/02/2022 DEBRIDEMENT SKIN, SUBCU, MUSCLE, BONE UPPER EXTREMITY (WRVU 4.1) performed by Hina Starks MD at [facility] MAIN OR ? ? PRO DEBRIDEMENT BONE MUSCLE &/FASCIA 20 SQ CM/< Left 02/02/2022 DEBRIDEMENT SKIN, SUBCU, MUSCLE, BONE, LOWER EXTREMITY (WRVU 4.1) performed by Hina Starks MD at [facility] MAIN OR ? ? PRO DEBRIDEMENT MUSCLE AND FASCIA 20 SQ CM/< Left 01/26/2022 DEBRIDEMENT SKIN, SUBCU, MUSCLE, LOWER EXTREMITY (WRVU 2.7) performed by Sigifredo Garcia MD at [facility] OR ? ? PRO DEBRIDEMENT MUSCLE AND FASCIA 20 SQ CM/< Left 01/26/2022 DEBRIDEMENT SKIN, SUBCU, MUSCLE, UPPER EXTREMITY (WRVU 2.7) performed by Sigifredo Garcia MD at [facility] OR ? ? PRO DEBRIDEMENT MUSCLE AND FASCIA 20 SQ CM/< Left 02/05/2022 DEBRIDEMENT SKIN, SUBCU, MUSCLE, LOWER EXTREMITY (WRVU 2.7) performed by Tom Valdovinos MD at [facility] OR ? ? PRO DEBRIDEMENT MUSCLE AND FASCIA 20 SQ CM/< Left 02/04/2022 DEBRIDEMENT SKIN, SUBCU, MUSCLE, LOWER EXTREMITY (WRVU 2.7) performed by Sigifredo Garcia MD at [facility] OR ? ? PRO DEBRIDEMENT MUSCLE AND FASCIA 20 SQ CM/< Left 02/15/2022 DEBRIDEMENT SKIN, SUBCU, MUSCLE, UPPER EXTREMITY (WRVU 2.7) performed by Jayme Armstrong MD at [facility] OR ? ? PRO DEBRIDEMENT MUSCLE AND FASCIA 20 SQ CM/< Left 02/19/2022 DEBRIDEMENT SKIN, SUBCU, MUSCLE, LOWER EXTREMITY (WRVU 2.7) performed by Jayme Armstrong MD at [facility] OR ? ? PRO DEBRIDEMENT MUSCLE AND FASCIA 20 SQ CM/< Left 02/22/2022 DEBRIDEMENT SKIN, SUBCU, MUSCLE, LOWER EXTREMITY (WRVU 2.7) performed by Parrish Betancourt MD at [facility] OR ? ? PRO DEBRIDEMENT SUBCUTANEOUS TISSUE 20 SQCM/< Left 02/04/2022 DEBRIDEMENT SKIN AND SUBCU, UPPER EXTREMITY (WRVU 1.01) performed [facility] ? ? PRO DEBRIDEMENT SUBCUTANEOUS TISSUE 20 SQCM/< Left 02/08/2022 DEBRIDEMENT SKIN AND SUBCU, LOWER EXTREMITY (WRVU 1.01) performed by Jeanette Chatterjee MD at [facility] OR ? ? PRO DEBRIDEMENT SUBCUTANEOUS TISSUE 20 SQCM/< Left 02/09/2022 DEBRIDEMENT SKIN AND SUBCU, LOWER EXTREMITY (WRVU 1.01) performed by Jeanette Chatterjee MD at [facility] OR ? ? PRO DEBRIDEMENT SUBCUTANEOUS TISSUE 20 SQCM/< Left 02/11/2022 DEBRIDEMENT SKIN AND SUBCU, LOWER EXTREMITY (WRVU 1.01) performed by Parrish Betancourt MD at [facility] OR ? ? PRO DEBRIDEMENT SUBCUTANEOUS TISSUE 20 SQCM/< Left 02/13/2022 DEBRIDEMENT SKIN AND SUBCU, LOWER EXTREMITY (WRVU 1.01) performed by Jeanette Chatterjee MD at [facility] OR ? ? PRO DEBRIDEMENT SUBCUTANEOUS TISSUE 20 SQCM/< Left 02/15/2022 DEBRIDEMENT SKIN AND SUBCU, LOWER EXTREMITY (WRVU 1.01) performed by Jayme Armstrong MD at [facility] OR ? ? PRO DEBRIDEMENT SUBCUTANEOUS TISSUE 20 SQCM/< Left 02/17/2022 DEBRIDEMENT SKIN AND SUBCU, LOWER EXTREMITY (WRVU 1.01) performed by Jayme Armstrong MD at [facility] OR ??? PRO DECOMP FOREARM, 2 COMPART, W/O DEBRIDE Left 01/23/2022 FASCIOTOMY; FOREARM AND\OR WRIST, FLEXOR & EXTENS. COMP (WRVU 10.79) performed by Sigifredo Garcia MD at [facility] OR ??? PRO DECOMPRESS ANT/LAT+POST LEG CMPART Left 01/23/2022 FASCIOTOMY, LOWER LEG, ALL COMPARTMENTS (WRVU 7.82) performed by Sigifredo Garcia MD at [facility] OR ??? PRO DRESSING CHANGE UNDER ANESTHESIA Left 02/11/2022 DRESSING CHANGE (FOR OTHER THAN GALLOWAY) UNDER ANES., UPPER EXTREMITY (WRVU 0.86) performed by Parrish Betancourt MD at [facility] OR ??? PRO DRESSING CHANGE UNDER ANESTHESIA Left 02/13/2022 DRESSING CHANGE (FOR OTHER THAN GALLOWAY) UNDER ANES., UPPER EXTREMITY (WRVU 0.86) performed by Jeanette Chatterjee MD at [facility] OR ??? PRO DRESSING CHANGE UNDER ANESTHESIA Left 02/17/2022 DRESSING CHANGE (FOR OTHER THAN GALLOWAY) UNDER ANES., UPPER EXTREMITY (WRVU 0.86) performed by Jayme Armstrong MD at [facility] OR ??? PRO DRESSING CHANGE UNDER ANESTHESIA Left 02/19/2022 DRESSING CHANGE (FOR OTHER THAN GALLOWAY) UNDER ANES., UPPER EXTREMITY (WRVU 0.86) performed by Jayme Armstrong MD at [facility] MAIN OR ??? PRO DRESSING CHANGE UNDER ANESTHESIA Left 02/22/2022 DRESSING CHANGE (FOR OTHER THAN GALLOWAY) UNDER ANES., UPPER EXTREMITY (WRVU 0.86) performed by Parrish Betancourt MD at [facility] MAIN OR ? ? PRO I&D DEEP ABSCESS BURSA/HEMATOMA THIGH/KNEE REGION Left 02/06/2022 INCISION & DRAINAGE ABSCESS OR HEMATOMA, THIGH, KNEE SUPERFICIAL (WRVU 6.78) performed by Jayme Armstrong MD at [facility] OR ??? PRO INCIS OF HIP/THIGH FASCIA Left 01/23/2022 @FASCIOTOMY,THIGH OR HIP FOR COMPARTMENT SYNDROME (WRVU 12.89) performed by Sigifredo Garcia MD at [facility] OR ??? PRO NEGATIVE PRESSURE WOUND THERAPY, LESS THAN OR EQUAL TO 50 SQCM Left 02/05/2022 DRESSING CHANGE (VAC ASSISTED) UP TO 50SQ.CM (WRVU 0.55) performed by Orville Hennessy MD at [facility] OR ??? PRO NEGATIVE PRESSURE WOUND THERAPY, LESS THAN OR EQUAL TO 50 SQCM Left 02/05/2022 DRESSING CHANGE (VAC ASSISTED) UP TO 50SQ.CM (WRVU 0.55) performed by Tom Valdovinos MD at [facility] OR ??? PRO NEGATIVE PRESSURE WOUND THERAPY, LESS THAN OR EQUAL TO 50 SQCM Left 02/08/2022 DRESSING CHANGE (VAC ASSISTED) UP TO 50SQ.CM (WRVU 0.55) performed by Jeanette Chatterjee MD at [facility] OR ??? PRO OPEN TREAT MANDIBLE CONDYLE FX, COMPL 04/27/2013 OPEN TREATMENT, COMPLEX MANDIBLE FX., MULTI APPROACH, W/ FIXATION performed by Kishore Neil MD at [facility] OR ??? PRO REVISE MEDIAN N/CARPAL TUNNEL SURG Left 01/23/2022 MEDIAN NERVE DECOMPRESSION (CARPAL TUNNEL RELEASE) (WRVU 4.97) performed by Sigifredo Garcia MD at [facility] OR ??? PRO SEC CLSR SURG WOUND/DEHSN [...] date: 01/23/2022 Attending Physician: Gela Novak MD [facility] General Surgery History and Physical Alix [...] Arteriogram Lower Extremity 02/06/2022 Nicole Vivas MD [facility] INTERVENTIONL RAD ??? PRO DEBRIDEMENT BONE EA ADDL 20 SQCM 02/08/2022 EACH ADDITIONAL 20 SQ CM, OR PART THEREOF (WRVU 1.8) performed by Jeanette Chatterjee MD at [facility] PAIGE ? ? PRO DEBRIDEMENT BONE MUSCLE &/FASCIA 20 SQ CM/< Left 01/29/2022 DEBRIDEMENT SKIN, SUBCU, MUSCLE, BONE, LOWER EXTREMITY (WRVU 4.1) performed by Tom Valdovinos MD [facility] MAIN OR ? ? PRO DEBRIDEMENT BONE MUSCLE &/FASCIA 20 SQ CM/< Left 01/31/2022 DEBRIDEMENT SKIN, SUBCU, MUSCLE, BONE, LOWER EXTREMITY (WRVU 4.1) performed by Jose Branch MD at [facility] MAIN OR ? ? PRO DEBRIDEMENT BONE MUSCLE &/FASCIA 20 SQ CM/< Left 01/31/2022 DEBRIDEMENT SKIN, SUBCU, MUSCLE, BONE UPPER EXTREMITY (WRVU 4.1) performed by Jose Branch MDat [facility] MAIN OR ? ? PRO DEBRIDEMENT BONE MUSCLE &/FASCIA 20 SQ CM/< Left 02/02/2022 DEBRIDEMENT SKIN, SUBCU, MUSCLE, BONE UPPER EXTREMITY (WRVU 4.1) performed by Hina Starks MD at [facility] MAIN OR ? ? PRO DEBRIDEMENT BONE MUSCLE &/FASCIA 20 SQ CM/< Left 02/02/2022 DEBRIDEMENT SKIN, SUBCU, MUSCLE, BONE, LOWER EXTREMITY (WRVU 4.1) performed by Hina Starks MD at [facility] MAIN OR ? ? PRO DEBRIDEMENT MUSCLE AND FASCIA 20 SQ CM/< Left 01/26/2022 DEBRIDEMENT SKIN, SUBCU, MUSCLE, LOWER EXTREMITY (WRVU 2.7) performed by Sigifredo Garcia MD at [facility] MAIN OR ? ? PRO DEBRIDEMENT MUSCLE AND FASCIA 20 SQ CM/< Left 01/26/2022 DEBRIDEMENT SKIN, SUBCU, MUSCLE, UPPER EXTREMITY (WRVU 2.7) performed by Sigifredo Garcia MD at [facility] MAIN OR ? ? PRO DEBRIDEMENT MUSCLE AND FASCIA 20 SQ CM/< Left 02/05/2022 DEBRIDEMENT SKIN, SUBCU, MUSCLE, LOWER EXTREMITY (WRVU 2.7) performed by Tom Valdovinos MD at [facility] OR ? ? PRO DEBRIDEMENT MUSCLE AND FASCIA 20 SQ CM/< Left 02/04/2022 DEBRIDEMENT SKIN, SUBCU, MUSCLE, LOWER EXTREMITY (WRVU 2.7) performed by Sigifredo Garcia MD at [facility] OR ? ? PRO DEBRIDEMENT MUSCLE AND FASCIA 20 SQ CM/< Left 02/15/2022 DEBRIDEMENT SKIN, SUBCU, MUSCLE, UPPER EXTREMITY (WRVU 2.7) performed by Jayme Armstrong MD at [facility] OR ? ? PRO DEBRIDEMENT MUSCLE AND FASCIA 20 SQ CM/< Left 02/19/2022 DEBRIDEMENT SKIN, SUBCU, MUSCLE, LOWER EXTREMITY (WRVU 2.7) performed by Jayme Armstrong MD at [facility] OR ? ? PRO DEBRIDEMENT SUBCUTANEOUS TISSUE 20 SQCM/< Left 02/04/2022 DEBRIDEMENT SKIN AND SUBCU, UPPER EXTREMITY (WRVU 1.01) performed [facility] ? ? PRO DEBRIDEMENT SUBCUTANEOUS TISSUE 20 SQCM/< Left 02/08/2022 DEBRIDEMENT SKIN AND SUBCU, LOWER EXTREMITY (WRVU 1.01) performed by Jeanette Chatterjee MD at [facility] OR ? ? PRO DEBRIDEMENT SUBCUTANEOUS TISSUE 20 SQCM/< Left 02/09/2022 DEBRIDEMENT SKIN AND SUBCU, LOWER EXTREMITY (WRVU 1.01) performed by Jeanette Chatterjee MD at [facility] OR ? ? PRO DEBRIDEMENT SUBCUTANEOUS TISSUE 20 SQCM/< Left 02/11/2022 DEBRIDEMENT SKIN AND SUBCU, LOWER EXTREMITY (WRVU 1.01) performed by Parrish Betancourt MD at [facility] OR ? ? PRO DEBRIDEMENT SUBCUTANEOUS TISSUE 20 SQCM/< Left 02/13/2022 DEBRIDEMENT SKIN AND SUBCU, LOWER EXTREMITY (WRVU 1.01) performed by Jeanette Chatterjee MD at [facility] OR ? ? PRO DEBRIDEMENT SUBCUTANEOUS TISSUE 20 SQCM/< Left 02/15/2022 DEBRIDEMENT SKIN AND SUBCU, LOWER EXTREMITY (WRVU 1.01) performed by Jayme Armstrong MD at [facility] OR ? ? PRO DEBRIDEMENT SUBCUTANEOUS TISSUE 20 SQCM/< Left 02/17/2022 DEBRIDEMENT SKIN AND SUBCU, LOWER EXTREMITY (WRVU 1.01) [facility] ??? PRO DECOMP FOREARM, 2 COMPART, W/O DEBRIDE Left 01/23/2022 FASCIOTOMY; FOREARM AND\OR WRIST, FLEXOR & EXTENS. COMP (WRVU 10.79) performed by Sigifredo Garcia MD at [facility] OR ??? PRO DECOMPRESS ANT/LAT+POST LEG CMPART Left 01/23/2022 FASCIOTOMY, LOWER LEG, ALL COMPARTMENTS (WRVU 7.82) performed by Sigifredo Garcia MD at [facility] OR ??? PRO DRESSING CHANGE UNDER ANESTHESIA Left 02/11/2022 DRESSING CHANGE (FOR OTHER THAN GALLOWAY) UNDER ANES., UPPER EXTREMITY (WRVU 0.86) performed by Parrish Betancourt MD at [facility] OR ??? PRO DRESSING CHANGE UNDER ANESTHESIA Left 02/13/2022 DRESSING CHANGE (FOR OTHER THAN GALLOWAY) UNDER ANES., UPPER EXTREMITY (WRVU 0.86) performed by Jeanette Chatterjee MD at [facility] OR ??? PRO DRESSING CHANGE UNDER ANESTHESIA Left 02/17/2022 DRESSING CHANGE (FOR OTHER THAN GALLOWAY) UNDER ANES., UPPER EXTREMITY (WRVU 0.86) performed by Jayme Armstrong MD at [facility] OR ??? PRO DRESSING CHANGE UNDER ANESTHESIA Left 02/19/2022 DRESSING CHANGE (FOR OTHER THAN GALLOWAY) UNDER ANES., UPPER EXTREMITY (WRVU 0.86) performed by Jayme Armstrong MD at [facility] OR ? ? PRO I&D DEEP ABSCESS BURSA/HEMATOMA THIGH/KNEE REGION Left 02/06/2022 INCISION & DRAINAGE ABSCESS OR HEMATOMA, THIGH, KNEE SUPERFICIAL (WRVU 6.78) performed by Jayme Armstrong MD at [facility] OR ??? PRO INCIS OF HIP/THIGH FASCIA Left 01/23/2022 @FASCIOTOMY,THIGH OR HIP FOR COMPARTMENT SYNDROME (WRVU 12.89) performed by Sigifredo Garcia MD at [facility] OR ??? PRO NEGATIVE PRESSURE WOUND THERAPY, LESS THAN OR EQUAL TO 50 SQCM Left 02/05/2022 DRESSING CHANGE (VAC ASSISTED) UP TO 50SQ.CM (WRVU 0.55) performed by Orville Hennessy MD at [facility] MAIN OR ??? PRO NEGATIVE PRESSURE WOUND THERAPY, LESS THAN OR EQUAL TO 50 SQCM Left 02/05/2022 DRESSING CHANGE (VAC ASSISTED) UP TO 50SQ.CM (WRVU 0.55) performed by Tom Valdovinos MD at [facility] MAIN OR ??? PRO NEGATIVE PRESSURE WOUND THERAPY, LESS THAN OR EQUAL TO 50 SQCM Left 02/08/2022 DRESSING CHANGE (VAC ASSISTED) UP TO 50SQ.CM (WRVU 0.55) performed by Jeanette Chatterjee MD at [facility] MAIN OR ??? PRO OPEN TREAT MANDIBLE CONDYLE FX, COMPL 04/27/2013 OPEN TREATMENT, COMPLEX MANDIBLE FX., MULTI APPROACH, W/ FIXATION performed by Kishore Neil MD at [facility] OR ??? PRO REVISE MEDIAN N/CARPAL TUNNEL SURG Left 01/23/2022 MEDIAN NERVE DECOMPRESSION (CARPAL TUNNEL RELEASE) (WRVU 4.97) performed by Sigifredo Garcia MD at [facility] MAIN OR ??? PRO SEC CLSR SURG WOUND/DEHSN EXTENSIVE/COMPLICATED Left 01/26/2022 SECONDARY CLOSURE SURGICAL WOUND OR DEHISCENCE, EXTENSIVE OR COMPLICATED, UPPER EXTREMITY (WRVU 12.04) performed by Sigifredo Garcia MD at [facility] MAIN OR Current Facility-Administered Medications: ??? [...] date: 01/23/2022 Attending Physician: Gela Novak MD [facility] General Surgery History and Physical Alix [...] Arteriogram Lower Extremity 02/06/2022 Nicole Vivas MD [facility] INTERVENTIONL RAD ??? PRO DEBRIDEMENT BONE EA ADDL 20 SQCM 02/08/2022 EACH ADDITIONAL 20 SQ CM, OR PART THEREOF (WRVU 1.8) performed by Jeanette Chatterjee MD at [facility]E ? ? PRO DEBRIDEMENT BONE MUSCLE &/FASCIA 20 SQ CM/< Left 01/29/2022 DEBRIDEMENT SKIN, SUBCU, MUSCLE, BONE, LOWER EXTREMITY (WRVU 4.1) performed by Tom Valdovinos MD [facility] MAIN OR ? ? PRO DEBRIDEMENT BONE MUSCLE &/FASCIA 20 SQ CM/< Left 01/31/2022 DEBRIDEMENT SKIN, SUBCU, MUSCLE, BONE, LOWER EXTREMITY (WRVU 4.1) performed by Jose Branch MD at [facility] MAIN OR ? ? PRO DEBRIDEMENT BONE MUSCLE &/FASCIA 20 SQ CM/< Left 01/31/2022 DEBRIDEMENT SKIN, SUBCU, MUSCLE, BONE UPPER EXTREMITY (WRVU 4.1) performed by Jose Branch MDat [facility] MAIN OR ? ? PRO DEBRIDEMENT BONE MUSCLE &/FASCIA 20 SQ CM/< Left 02/02/2022 DEBRIDEMENT SKIN, SUBCU, MUSCLE, BONE UPPER EXTREMITY (WRVU 4.1) performed by Hina Starks MD at [facility] MAIN OR ? ? PRO DEBRIDEMENT BONE MUSCLE &/FASCIA 20 SQ CM/< Left 02/02/2022 DEBRIDEMENT SKIN, SUBCU, MUSCLE, BONE, LOWER EXTREMITY (WRVU 4.1) performed by Hina Starks MD at [facility] MAIN OR ? ? PRO DEBRIDEMENT MUSCLE AND FASCIA 20 SQ CM/< Left 01/26/2022 DEBRIDEMENT SKIN, SUBCU, MUSCLE, LOWER EXTREMITY (WRVU 2.7) performed by Sigifredo Garcia MD at [facility] MAIN OR ? ? PRO DEBRIDEMENT MUSCLE AND FASCIA 20 SQ CM/< Left 01/26/2022 DEBRIDEMENT SKIN, SUBCU, MUSCLE, UPPER EXTREMITY (WRVU 2.7) performed by Sigifredo Garcia MD at [facility] OR ? ? PRO DEBRIDEMENT MUSCLE AND FASCIA 20 SQ CM/< Left 02/05/2022 DEBRIDEMENT SKIN, SUBCU, MUSCLE, LOWER EXTREMITY (WRVU 2.7) performed by Tom Valdovinos MD at [facility] OR ? ? PRO DEBRIDEMENT MUSCLE AND FASCIA 20 SQ CM/< Left 02/04/2022 DEBRIDEMENT SKIN, SUBCU, MUSCLE, LOWER EXTREMITY (WRVU 2.7) performed by Sigifredo Garcia MD at [facility] OR ? ? PRO DEBRIDEMENT MUSCLE AND FASCIA 20 SQ CM/< Left 02/15/2022 DEBRIDEMENT SKIN, SUBCU, MUSCLE, UPPER EXTREMITY (WRVU 2.7) performed by Jayme Armstrong MD at [facility] OR ? ? PRO DEBRIDEMENT SUBCUTANEOUS TISSUE 20 SQCM/< Left 02/04/2022 DEBRIDEMENT SKIN AND SUBCU, UPPER EXTREMITY (WRVU 1.01) [facility] ? ? PRO DEBRIDEMENT SUBCUTANEOUS TISSUE 20 SQCM/< Left 02/08/2022 DEBRIDEMENT SKIN AND SUBCU, LOWER EXTREMITY (WRVU 1.01) performed by Jeanette Chatterjee MD at [facility] OR ? ? PRO DEBRIDEMENT SUBCUTANEOUS TISSUE 20 SQCM/< Left 02/09/2022 DEBRIDEMENT SKIN AND SUBCU, LOWER EXTREMITY (WRVU 1.01) performed by Jeanette Chatterjee MD at [facility] OR ? ? PRO DEBRIDEMENT SUBCUTANEOUS TISSUE 20 SQCM/< Left 02/11/2022 DEBRIDEMENT SKIN AND SUBCU, LOWER EXTREMITY (WRVU 1.01) performed by Parrish Betancourt MD at [facility] OR ? ? PRO DEBRIDEMENT SUBCUTANEOUS TISSUE 20 SQCM/< Left 02/13/2022 DEBRIDEMENT SKIN AND SUBCU, LOWER EXTREMITY (WRVU 1.01) performed by Jeanette Chatterjee MD at [facility] OR ? ? PRO DEBRIDEMENT SUBCUTANEOUS TISSUE 20 SQCM/< Left 02/15/2022 DEBRIDEMENT SKIN AND SUBCU, LOWER EXTREMITY (WRVU 1.01) performed by Jayme Armstrong MD at [facility] OR ? ? PRO DEBRIDEMENT SUBCUTANEOUS TISSUE 20 SQCM/< Left 02/17/2022 DEBRIDEMENT SKIN AND SUBCU, LOWER EXTREMITY (WRVU 1.01) performed by Jayme Armstrong MD at [facility] OR ??? PRO DECOMP FOREARM, 2 COMPART, W/O DEBRIDE Left 01/23/2022 FASCIOTOMY; FOREARM AND\OR WRIST, FLEXOR & EXTENS. COMP (WRVU 10.79) performed by Sigifredo Garcia MD at [facility] OR ??? PRO DECOMPRESS ANT/LAT+POST LEG CMPART Left 01/23/2022 FASCIOTOMY, LOWER LEG, ALL COMPARTMENTS (WRVU 7.82) performed by Sigifredo Garcia MD at [facility] OR ??? PRO DRESSING CHANGE UNDER ANESTHESIA Left 02/11/2022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 Medications: ??? lactulose (Chronulac) [...] 0.6 mg, Intravenous, Q2H PRN, Rogers Solano, INSULATION WORKER, 0.6 mg at 02/09/22 0644 ??? alteplase [...] mg/mL) in sodium chloride 0.9% 50 mL RIGGER THIRD infusion, , Intravenous, RIGGER THIRD Only, Kaitlyn Rock MD, Last Rate: 1 [...] Q1 Min PRN, Kaitlyn Rock MD ??? RIGGER THIRD hutton, , Intravenous, Continuous PRN, Kaitlyn Rock MD ??? HYDROmorphone (mg) RIGGER THIRD shift total and Settings verification, , Intravenous, 2 Times Daily- RIGGER THIRD Shift Total, Kaitlyn Rock MD ??? vancomycin [...] was initially admitted to MICU 01/23 at [facility] after he was found down following [...] (WRVU 4.1) performed by Tom Valdovinos MD [facility] MAIN OR ? ? PRO DEBRIDEMENT BONE MUSCLE &/FASCIA 20 SQ CM/< Left 01/31/2022 DEBRIDEMENT SKIN, SUBCU, MUSCLE, BONE, LOWER EXTREMITY (WRVU 4.1) performed by Jose Branch MD at [facility] MAIN OR ? ? PRO DEBRIDEMENT BONE MUSCLE &/FASCIA 20 SQ CM/< Left 01/31/2022 DEBRIDEMENT SKIN, SUBCU, MUSCLE, BONE UPPER EXTREMITY (WRVU 4.1) performed by Jose Branch MDat [facility] MAIN OR ? ? PRO DEBRIDEMENT BONE MUSCLE &/FASCIA 20 SQ CM/< Left 02/02/2022 DEBRIDEMENT SKIN, SUBCU, MUSCLE, BONE UPPER EXTREMITY (WRVU 4.1) performed by Hina Starks MD at [facility] MAIN OR ? ? PRO DEBRIDEMENT BONE MUSCLE &/FASCIA 20 SQ CM/< Left 02/02/2022 DEBRIDEMENT SKIN, SUBCU, MUSCLE, BONE, LOWER EXTREMITY (WRVU 4.1) performed by Hina Starks MD at [facility] MAIN OR ? ? PRO DEBRIDEMENT MUSCLE AND FASCIA 20 SQ CM/< Left 01/26/2022 DEBRIDEMENT SKIN, SUBCU, MUSCLE, LOWER EXTREMITY (WRVU 2.7) performed by Sigifredo Garcia MD at [facility] OR ? ? PRO DEBRIDEMENT MUSCLE AND FASCIA 20 SQ CM/< Left 01/26/2022 DEBRIDEMENT SKIN, SUBCU, MUSCLE, UPPER EXTREMITY (WRVU 2.7) performed by Sigifredo Garcia MD at [facility] OR ? ? PRO DEBRIDEMENT MUSCLE AND FASCIA 20 SQ CM/< Left 02/05/2022 DEBRIDEMENT SKIN, SUBCU, MUSCLE, LOWER EXTREMITY (WRVU 2.7) performed by Tom Valdovinos MD at [facility] OR ??? PRO DECOMP FOREARM, 2 COMPART, W/O DEBRIDE Left 01/23/2022 FASCIOTOMY; FOREARM AND\OR WRIST, FLEXOR & EXTENS. COMP (WRVU 10.79) performed by Sigifredo Garcia MD at [facility] MAIN OR ??? PRO DECOMPRESS ANT/LAT+POST LEG CMPART Left 01/23/2022 FASCIOTOMY, LOWER LEG, ALL COMPARTMENTS (WRVU 7.82) performed by Sigifredo Garcia MD at [facility] OR ??? PRO INCIS OF HIP/THIGH FASCIA Left 01/23/2022 @FASCIOTOMY,THIGH OR HIP FOR COMPARTMENT SYNDROME (WRVU 12.89) performed by Sigifredo Garcia MD at [facility] OR ??? PRO NEGATIVE PRESSURE WOUND THERAPY, LESS THAN OR EQUAL TO 50 SQCM Left 02/05/2022 DRESSING CHANGE (VAC ASSISTED) UP TO 50SQ.CM (WRVU 0.55) performed by Orville Hennessy MD at [facility] OR ??? PRO NEGATIVE PRESSURE WOUND THERAPY, LESS THAN OR EQUAL TO 50 SQCM Left 02/05/2022 DRESSING CHANGE (VAC ASSISTED) UP TO 50SQ.CM (WRVU 0.55) performed by Tom Valdovinos MD at [facility] OR ??? PRO OPEN TREAT MANDIBLE CONDYLE FX, COMPL 04/27/2013 OPEN TREATMENT, COMPLEX MANDIBLE FX., MULTI APPROACH, W/ FIXATION performed by Kishore Neil MD at [facility] MAIN OR ??? PRO REVISE MEDIAN N/CARPAL TUNNEL SURG Left 01/23/2022 MEDIAN NERVE DECOMPRESSION (CARPAL TUNNEL RELEASE) (WRVU 4.97) performed by Sigifredo Garcia MD at [facility] MAIN OR ??? PRO SEC CLSR SURG WOUND/DEHSN EXTENSIVE/COMPLICATED Left 01/26/2022 SECONDARY CLOSURE SURGICAL WOUND OR DEHISCENCE, EXTENSIVE OR COMPLICATED, UPPER EXTREMITY (WRVU 12.04) performed by Sigifredo Garcia MD at [facility] MAIN OR MEDICATIONS: Medication Sig ??? [...] Jones MD 02/06/2022 General Surgery consult pager #[phone] I saw and evaluated the patient with [...] Left lower extremity angiogram via righ t INFORMATION SERVICES MANAGER access. Past Medical/Surgical History: Patient Active Problem [...] (WRVU 4.1) performed by Tom Valdovinos MD [facility] MAIN OR ? ? PRO DEBRIDEMENT BONE MUSCLE &/FASCIA 20 SQ CM/< Left 01/31/2022 DEBRIDEMENT SKIN, SUBCU, MUSCLE, BONE, LOWER EXTREMITY (WRVU 4.1) performed by Jose Branch MD at [facility] MAIN OR ? ? PRO DEBRIDEMENT BONE MUSCLE &/FASCIA 20 SQ CM/< Left 01/31/2022 DEBRIDEMENT SKIN, SUBCU, MUSCLE, BONE UPPER EXTREMITY (WRVU 4.1) performed by Jose Branch MDat [facility] MAIN OR ? ? PRO DEBRIDEMENT BONE MUSCLE &/FASCIA 20 SQ CM/< Left 02/02/2022 DEBRIDEMENT SKIN, SUBCU, MUSCLE, BONE UPPER EXTREMITY (WRVU 4.1) performed by Hina Starks MD at [facility] MAIN OR ? ? PRO DEBRIDEMENT BONE MUSCLE &/FASCIA 20 SQ CM/< Left 02/02/2022 DEBRIDEMENT SKIN, SUBCU, MUSCLE, BONE, LOWER EXTREMITY (WRVU 4.1) performed by Hina Starks MD at [facility] MAIN OR ? ? PRO DEBRIDEMENT MUSCLE AND FASCIA 20 SQ CM/< Left 01/26/2022 DEBRIDEMENT SKIN, SUBCU, MUSCLE, LOWER EXTREMITY (WRVU 2.7) performed by Sigifredo Garcia MD at [facility] MAIN OR ? ? PRO DEBRIDEMENT MUSCLE AND FASCIA 20 SQ CM/< Left 01/26/2022 DEBRIDEMENT SKIN, SUBCU, MUSCLE, UPPER EXTREMITY (WRVU 2.7) performed by Sigirfedo Garcia MD at [facility] MAIN OR ? ? PRO DEBRIDEMENT MUSCLE AND FASCIA 20 SQ CM/< Left 02/05/2022 DEBRIDEMENT SKIN, SUBCU, MUSCLE, LOWER EXTREMITY (WRVU 2.7) performed by Tom Valdovinos MD at [facility] MAIN OR ??? PRO DECOMP FOREARM, 2 COMPART, W/O DEBRIDE Left 01/23/2022 FASCIOTOMY; FOREARM AND\OR WRIST, FLEXOR & EXTENS. COMP (WRVU 10.79) performed by Sigifredo Garcia MD at [facility] MAIN OR ??? PRO DECOMPRESS ANT/LAT+POST LEG CMPART Left 01/23/2022 FASCIOTOMY, LOWER LEG, ALL COMPARTMENTS (WRVU 7.82) performed by Sigifredo Garcia MD at [facility] MAIN OR ??? PRO INCIS OF HIP/THIGH FASCIA Left 01/23/2022 @FASCIOTOMY,THIGH OR HIP FOR COMPARTMENT SYNDROME (WRVU 12.89) performed by Sigifredo Garcia MD at [facility] MAIN OR ??? PRO NEGATIVE PRESSURE WOUND THERAPY, LESS THAN OR EQUAL TO 50 SQCM Left 02/05/2022 DRESSING CHANGE (VAC ASSISTED) UP TO 50SQ.CM (WRVU 0.55) performed by Orville Hennessy MD at [facility] OR ??? PRO NEGATIVE PRESSURE WOUND THERAPY, LESS THAN OR EQUAL TO 50 SQCM Left 02/05/2022 DRESSING CHANGE (VAC ASSISTED) UP TO 50SQ.CM (WRVU 0.55) performed by Tom Valdovinos MD at [facility] MAIN OR ??? PRO OPEN TREAT MANDIBLE CONDYLE FX, COMPL 04/27/2013 OPEN TREATMENT, COMPLEX MANDIBLE FX., MULTI APPROACH, W/ FIXATION performed by Kishore Neil MD at [facility] MAIN OR ??? PRO REVISE MEDIAN N/CARPAL TUNNEL SURG Left 01/23/2022 MEDIAN NERVE DECOMPRESSION (CARPAL TUNNEL RELEASE) (WRVU 4.97) performed by Sigifredo Garcia MD at [facility] MAIN OR ??? PRO SEC CLSR SURG WOUND/DEHSN EXTENSIVE/COMPLICATED Left 01/26/2022 SECONDARY CLOSURE SURGICAL WOUND OR DEHISCENCE, EXTENSIVE OR COMPLICATED, UPPER EXTREMITY (WRVU 12.04) performed by Sigifredo Garcia MD at [facility] OR Medications: No current facility-administered medications on [...] for procedure: Lidocaine Planned access site: Right INFORMATION SERVICES MANAGER Position: Supine Consent: -- (2 Physician consent, [...] (WRVU 4.1) performed by Tom Valdovinos MD [facility] MAIN OR ? ? PRO DEBRIDEMENT BONE MUSCLE &/FASCIA 20 SQ CM/< Left 01/31/2022 DEBRIDEMENT SKIN, SUBCU, MUSCLE, BONE, LOWER EXTREMITY (WRVU 4.1) performed by Jose Branch MD at [facility] MAIN OR ? ? PRO DEBRIDEMENT BONE MUSCLE &/FASCIA 20 SQ CM/< Left 01/31/2022 DEBRIDEMENT SKIN, SUBCU, MUSCLE, BONE UPPER EXTREMITY (WRVU 4.1) performed by Jose Branch MDat [facility] MAIN OR ? ? PRO DEBRIDEMENT BONE MUSCLE &/FASCIA 20 SQ CM/< Left 02/02/2022 DEBRIDEMENT SKIN, SUBCU, MUSCLE, BONE UPPER EXTREMITY (WRVU 4.1) performed by Hina Starks MD at [facility] MAIN OR ? ? PRO DEBRIDEMENT BONE MUSCLE &/FASCIA 20 SQ CM/< Left 02/02/2022 DEBRIDEMENT SKIN, SUBCU, MUSCLE, BONE, LOWER EXTREMITY (WRVU 4.1) performed by Hina Starks MD at [facility] OR ? ? PRO DEBRIDEMENT MUSCLE AND FASCIA 20 SQ CM/< Left 01/26/2022 DEBRIDEMENT SKIN, SUBCU, MUSCLE, LOWER EXTREMITY (WRVU 2.7) performed by Sigifredo Garcia MD at [facility] OR ? ? PRO DEBRIDEMENT MUSCLE AND FASCIA 20 SQ CM/< Left 01/26/2022 DEBRIDEMENT SKIN, SUBCU, MUSCLE, UPPER EXTREMITY (WRVU 2.7) performed by Sigifredo Garcia MD at [facility] MAIN OR ??? PRO DECOMP FOREARM, 2 COMPART, W/O DEBRIDE Left 01/23/2022 FASCIOTOMY; FOREARM AND\OR WRIST, FLEXOR & EXTENS. COMP (WRVU 10.79) performed by Sigifredo Garcia MD at [facility] OR ??? PRO DECOMPRESS ANT/LAT+POST LEG CMPART Left 01/23/2022 FASCIOTOMY, LOWER LEG, ALL COMPARTMENTS (WRVU 7.82) performed by Sigifredo Garcia MD at [facility] OR ??? PRO INCIS OF HIP/THIGH FASCIA Left 01/23/2022 @FASCIOTOMY,THIGH OR HIP FOR COMPARTMENT SYNDROME (WRVU 12.89) performed by Sigifredo Garcia MD at [facility] OR ??? PRO OPEN TREAT MANDIBLE CONDYLE FX, COMPL 04/27/2013 OPEN TREATMENT, COMPLEX MANDIBLE FX., MULTI APPROACH, W/ FIXATION performed by Kishore Neil MD at [facility] OR ??? PRO REVISE MEDIAN N/CARPAL TUNNEL SURG Left 01/23/2022 MEDIAN NERVE DECOMPRESSION (CARPAL TUNNEL RELEASE) (WRVU 4.97) performed by Sigifredo Garcia MD at [facility] OR ??? PRO SEC CLSR SURG WOUND/DEHSN EXTENSIVE/COMPLICATED Left 01/26/2022 SECONDARY CLOSURE SURGICAL WOUND OR DEHISCENCE, EXTENSIVE OR COMPLICATED, UPPER EXTREMITY (WRVU 12.04) performed by Sigifredo Garcia MD at [facility] OR Prior To Admission Medications: Medications Prior [...] mg/mL) in sodium chloride 0.9% 50 mL RIGGER THIRD infusion ??? HYDROmorphone (Dilaudid) (1 mg/mL) injection syringe 1 mg ??? sevelamer carbonate (Renvela) tablet 1,600 mg ??? diphenhydrAMINE (Benadryl) (50 mg/mL) injection 25 mg ??? prochlorperazine (Compazine) (5 mg/mL) injection 5 mg ??? ondansetron (pf) (Zofran) (2 mg/mL) injection 4 mg ??? naloxone (Narcan) (0.4 mg/mL) injection 0.2 mg ??? RIGGER THIRD hutton ??? HYDROmorphone (mg) RIGGER THIRD shift total and Settings verification ??? vancomycin [...] Value Ref Range T&S only valid at [facility] Prepare RBC Result Value Ref Range Dispensed? [...] access should pressors be required. Will consider Jess placement for continued lab draws after arrival to the SICU. Orthopedic surgery with no immediate plans for RTOR, however will keep NPO in case emergent take back required. 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 #polysubstance abuse - Analgesia: acetaminophen, dilaudid RIGGER THIRD, lidocaine patches 5% x3 - dronabinol 10 [...] following additions/exceptions: See my separate documentation. Dunia Han DO - 02/05/2022 9:32 PM EDT Critical Care - Admission Note History of Present Illness: Alix Holland is a 31 y.o. 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 He is admitted tonight to the SICU due to hemorrhagic shock in the setting of ongoing bleeding from a LLE fasciotomy. He was admitted initially to the MICU 01/23 s/p VT arrest at [facility] in the setting ofbeing down for [...] (WRVU 4.1) performed by Tom Valdovinos MD [facility] MAIN OR ? ? PRO DEBRIDEMENT BONE MUSCLE &/FASCIA 20 SQ CM/< Left 01/31/2022 DEBRIDEMENT SKIN, SUBCU, MUSCLE, BONE, LOWER EXTREMITY (WRVU 4.1) performed by Jose Branch MD at [facility] MAIN OR ? ? PRO DEBRIDEMENT BONE MUSCLE &/FASCIA 20 SQ CM/< Left 01/31/2022 DEBRIDEMENT SKIN, SUBCU, MUSCLE, BONE UPPER EXTREMITY (WRVU 4.1) performed by Jose Branch MDat [facility] OR ? ? PRO DEBRIDEMENT BONE MUSCLE &/FASCIA 20 SQ CM/< Left 02/02/2022 DEBRIDEMENT SKIN, SUBCU, MUSCLE, BONE UPPER EXTREMITY (WRVU 4.1) performed by Hina Starks MD at [facility] MAIN OR ? ? PRO DEBRIDEMENT BONE MUSCLE &/FASCIA 20 SQ CM/< Left 02/02/2022 DEBRIDEMENT SKIN, SUBCU, MUSCLE, BONE, LOWER EXTREMITY (WRVU 4.1) performed by Hina Starks MD at [facility] OR ? ? PRO DEBRIDEMENT MUSCLE AND FASCIA 20 SQ CM/< Left 01/26/2022 DEBRIDEMENT SKIN, SUBCU, MUSCLE, LOWER EXTREMITY (WRVU 2.7) performed by Sigifredo Garcia MD at [facility] OR ? ? PRO DEBRIDEMENT MUSCLE AND FASCIA 20 SQ CM/< Left 01/26/2022 DEBRIDEMENT SKIN, SUBCU, MUSCLE, UPPER EXTREMITY (WRVU 2.7) performed by Sigifredo Garcia MD at [facility] OR ??? PRO DECOMP FOREARM, 2 COMPART, W/O DEBRIDE Left 01/23/2022 FASCIOTOMY; FOREARM AND\OR WRIST, FLEXOR & EXTENS. COMP (WRVU 10.79) performed by Sigifredo Garcia MD at [facility] OR ??? PRO DECOMPRESS ANT/LAT+POST LEG CMPART Left 01/23/2022 FASCIOTOMY, LOWER LEG, ALL COMPARTMENTS (WRVU 7.82) performed by Sigifredo Garcia MD at [facility] OR ??? PRO INCIS OF HIP/THIGH FASCIA Left 01/23/2022 @FASCIOTOMY,THIGH OR HIP FOR COMPARTMENT SYNDROME (WRVU 12.89) performed by Sigifredo Garcia MD at [facility] MAIN OR ??? PRO OPEN TREAT MANDIBLE CONDYLE FX, COMPL 04/27/2013 OPEN TREATMENT, COMPLEX MANDIBLE FX., MULTI APPROACH, W/ FIXATION performed by Kishore Neil MD at [facility] MAIN OR ??? PRO REVISE MEDIAN N/CARPAL TUNNEL SURG Left 01/23/2022 MEDIAN NERVE DECOMPRESSION (CARPAL TUNNEL RELEASE) (WRVU 4.97) performed by Sigifredo Garcia MD at [facility] MAIN OR ??? PRO SEC CLSR SURG WOUND/DEHSN EXTENSIVE/COMPLICATED Left 01/26/2022 SECONDARY CLOSURE SURGICAL WOUND OR DEHISCENCE, EXTENSIVE OR COMPLICATED, UPPER EXTREMITY (WRVU 12.04) performed by Sigifredo Garcia MD at [facility] MAIN OR Prior To Admission Medications: [...] mg/mL) in sodium chloride 0.9% 50 mL RIGGER THIRD infusion ??? HYDROmorphone (Dilaudid) (1 mg/mL) injection syringe 1 mg ??? sevelamer carbonate (Renvela) tablet 1,600 mg ??? diphenhydrAMINE (Benadryl) (50 mg/mL) injection 25 mg ??? prochlorperazine (Compazine) (5 mg/mL) injection 5 mg ??? ondansetron (pf) (Zofran) (2 mg/mL) injection 4 mg ??? naloxone (Narcan) (0.4 mg/mL) injection 0.2 mg ??? RIGGER THIRD hutton ??? HYDROmorphone (mg) RIGGER THIRD shift total and Settings verification ??? vancomycin [...] to control pain - pain control: acetaminophen, RIGGER THIRD CV: hypotension in the setting of hypovolemia [...] the LLE. David Pagan MD Orthopaedic Surgery [facility] I spoke with and examined the [...] properly marked. David Pagan MD Orthopaedic Surgery [facility] Associated attestation - Sigifredo Garcia MD [...] to proceed. Sigifredo Garcia MD Orthopaedic Surgery JustynaErika sloan MD - 02/02/2022 10:50 PM EDT Inpatient [...] fracture ID: 31 y.o. Male presents to [facility] with PMH significant for hypertension, angioedema requiring intubation(unclear trigger), GERD, gastritis, esophagitis, and urachal cyst s/p I&D, and polysubstance use(including EtOH, cocaine, fentanyl, heroin)??who presented in transfer from [facility] to [facility] ICU on??01/23/2022??for cardiac arrest s/p ROSC, likely [...] to neuro exam. The transport events to [facility] are not clear, but the patient was given a total of 6mg narcan, 10mg IMversed (for ?seizure activity), and and IO placed. He also developed Vtach with rates in the 220s had CPR performed via Jitendra. He was intubated on arrival to [facility] underwent defibrillation with ROSC. He was given [...] was started on levophed and transferred to [facility] for ongoing management. Hospital/ICU course has been significant for: ?? Rhabdomyolysis d/t LUE + LLE Compartment Syndrome with hyperkalemic cardiac arrest ?? COVID-19 infection, Asymptomatic ?? 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 Transaminitis, likely ischemic hepatitis ?? Possible [...] (WRVU 4.1) performed by Tom Valdovinos MD [facility] MAIN OR ? ? PRO DEBRIDEMENT BONE MUSCLE &/FASCIA 20 SQ CM/< Left 01/31/2022 DEBRIDEMENT SKIN, SUBCU, MUSCLE, BONE, LOWER EXTREMITY (WRVU 4.1) performed by Jose Branch MD at [facility] MAIN OR ? ? PRO DEBRIDEMENT BONE MUSCLE &/FASCIA 20 SQ CM/< Left 01/31/2022 DEBRIDEMENT SKIN, SUBCU, MUSCLE, BONE UPPER EXTREMITY (WRVU 4.1) performed by Jose Branch MDat [facility] MAIN OR ? ? PRO DEBRIDEMENT MUSCLE AND FASCIA 20 SQ CM/< Left 01/26/2022 DEBRIDEMENT SKIN, SUBCU, MUSCLE, LOWER EXTREMITY (WRVU 2.7) performed by Sigifredo Garcia MD at [facility] MAIN OR ? ? PRO DEBRIDEMENT MUSCLE AND FASCIA 20 SQ CM/< Left 01/26/2022 DEBRIDEMENT SKIN, SUBCU, MUSCLE, UPPER EXTREMITY (WRVU 2.7) performed by Sigifredo Garcia MD at [facility] MAIN OR ??? PRO DECOMP FOREARM, 2 COMPART, W/O DEBRIDE Left 01/23/2022 FASCIOTOMY; FOREARM AND\OR WRIST, FLEXOR & EXTENS. COMP (WRVU 10.79) performed by Sigifredo Garcia MD at [facility] OR ??? PRO DECOMPRESS ANT/LAT+POST LEG CMPART Left 01/23/2022 FASCIOTOMY, LOWER LEG, ALL COMPARTMENTS (WRVU 7.82) performed by Sigifredo Garcia MD at [facility] MAIN OR ??? PRO INCIS OF HIP/THIGH FASCIA Left 01/23/2022 @FASCIOTOMY,THIGH OR HIP FOR COMPARTMENT SYNDROME (WRVU 12.89) performed by Sigifredo Garcia MD at [facility] MAIN OR ??? PRO OPEN TREAT MANDIBLE CONDYLE FX, COMPL 04/27/2013 OPEN TREATMENT, COMPLEX MANDIBLE FX., MULTI APPROACH, W/ FIXATION performed by Kishore Neil MD at [facility] MAIN OR ??? PRO REVISE MEDIAN N/CARPAL TUNNEL SURG Left 01/23/2022 MEDIAN NERVE DECOMPRESSION (CARPAL TUNNEL RELEASE) (WRVU 4.97) performed by Sigifredo Garcia MD at [facility] MAIN OR ??? PRO SEC CLSR SURG WOUND/DEHSN EXTENSIVE/COMPLICATED Left 01/26/2022 SECONDARY CLOSURE SURGICAL WOUND OR DEHISCENCE, EXTENSIVE OR COMPLICATED, UPPER EXTREMITY (WRVU 12.04) performed by Sigifredo Garcia MD at [facility] MAIN OR Prior To Admission Medications: [...] who have questions please contact the health care associate that requested your imaging first. Head wo Contrast (Generic) (Exam End: 01/23/2022 3:58 AM) Impression Globi pallidi infarcts. Mild cerebral edema. Thank you for letting us participate in the care of this patient. If you are a health care provider and have any questions regarding this report, please contact the number below. For patients who have questions please contact the health care associate that requested your imaging first. Abdomen 1 view (Generic) (Exam End: 01/23/2022 [...] who have questions please contact the health care associate that requested your imaging first. Lower Extremity wo Contrast Left (Generic) (Exam [...] who have questions please contact the health care associate that requested your imaging first. Chest wo Contrast (Generic) (Exam End: 01/23/2022 [...] who have questions please contact the health care associate that requested your imaging first. Upper Extremity [...] who have questions please contact the health care associate that requested your imaging first. Forearm Left [...] who have questions please contact the health care associate that requested your imaging first. Electronically signed by: Rex Addison [facility] ([phone]), at 01/23/2022 7:14 AM XR Chest One [...] who have questions please contact the health care associate that requested your imaging first. Femur 2 views Left (Generic) (Exam End: 01/23/2022 2:04 PM) Impression No significant osseous finding. Thank you for letting us participate in the care of this patient. If you are a health care provider and have any questions regarding this report, please contact the number below. For patients who have questions please contact the health care associate that requested your imaging first. Tibia Fibula Left (Generic) (Exam End: 01/23/2022 2:04 PM) Impression No bony abnormality seen. Thank you for letting us participate in the care of this patient. If you are a health care provider and have any questions regarding this report, please contact the number below. For patients who have questions please contact the health care associate that requested your imaging first. Chest One View (Exam End: 01/23/2022 4:54 [...] who have questions please contact the health care associate that requested your imaging first. Brain wo Contrast (Exam End: 01/24/2022 4:27 PM) Impression Acute globi pallidi infarctions. Scattered punctate infarctions in the cerebellar hemispheres. Thank you for letting us participate in the care of this patient. If you are a health care provider and have any questions regarding this report, please contact the number below. For patients who have questions please contact the health care associate that requested your imaging first. Angiogram [place] (Exam End: 01/24/2022 11:32 PM) Impression Normal appearance of the large and medium size arteries of the head and neck Thank you for letting us participate in the care of this patient. If you are a health care provider and have any questions regarding this report, please contact the number below. For patients who have questions please contact the health care associate that requested your imaging first. Angiogram Carotids [...] who have questions please contact the health care associate that requested your imaging first. Chest Abdomen [...] who have questions please contact the health care associate that requested your imaging first. Other Studies: EKG - Sinus tachycardia Nonspecific T wave abnormality Abnormal ECG When compared with ECG of 23-JAN-2022 00:46, heart rate has slowed Confirmed by Clem Guo ([id number]) on 02/01/2022 1:23:54 PM TTE 01/24 Interpretation [...] requires precautions (day 11) # ALTHEA requiring FIGURE CLERK; now on iHD # Hyponatremia # Hyperkalemia [...] and LLE. David Pagan MD Orthopaedic Surgery [facility] Dimas Hernandez MD - 01/31/2022 6:29 [...] RRR CTAB Doc Roberts MD Orthopaedic Surgery [facility] Parrish Esqueda MD - 01/28/2022 5:25 [...] answered. Parrish Esqueda MD Orthopaedic Surgery Pager: [phone] Kris Dean MD - 01/26/2022 6:03 AM [...] to neuro exam. The transport events to [facility] are not clear, but thepatient was given a total of 6mg narcan, 10mg IMversed (for ?seizure activity), and and IO placed. He also developed Vtach with rates in the 220s had CPR performed via Jitendra. He was intubated on arrival to [facility] underwent defibrillation with ROSC. He was given [...] was started on levophed and transferred to [facility] for ongoing management. Urine drug screen: +barbiturates, +oxycodone, +opiates Tylenol, salicylates, and ethanol were negative Notable labs: WBC 27.6 Hgb 21.5 Plts 383 K 7.8-> 5.4 CO2 11 BUN 32 Cr 4.37 AG 35 Lactate >10 AST 3588 ALT 990 Trop-I >9000 SARS-CoV-2 RNA detected En-route to [facility] he was given boluses of ketamine for [...] FIXATION performed by Kishore Neil MD at [facility] MAIN OR No family history on [...] wbc, hgb, hct plt Recent Labs 01/23/22 004 WBC 22.6* HGB 21.5* HCT 63.2* Last 3 Lytes Recent Labs 01/23/22 0045 04/28/21 0400 04/27/21 0540 NA 142 142 146* K 7.6* 3.5 3.8 CL 102 108* 110* CO2 17* 23 23 BUN 47* 14 13 CREATININE 4.42* 0.67* 0.66* Last 3 LFTs Recent Labs 01/23/22 0045 04/26/211954 AST >700* 19 ALT >700* 28 ALKPHOS 71 53 BILITOT 0.4 0.3 BILIDIR 0.2 -- Last Ca, Mg, Phos Recent Labs 01/23/22 004 CALCIUM 5.8* PHOS 10.0* MAGNESIUM 1.08* Last 3 Coags Recent Labs 01/23/22 0155 01/23/225 PT 14.4* Disregard INR 1.3 Disregard PTT 25 Disregard Last 3 ProBNP, Trop, CK Recent Labs 01/23/2244 CK >220,000* TROPONINT 0.43* Microbiology: -01/22/22 from [facility]: SARS-CoV2 PCR positive -Blood cultures, sputum culture, UA, respiratory PCR pending ECG: Sinus tachycardia Imaging: Assessment: Alix Holland is a 31 y.o. male with PMH significant for polysubstance use who presentsto the ICU in transfer from [facility] with cardiac arrest s/p ROSC. Etiology [...] removed Right femoral CVL placed 01/22 at [facility] Right radial A-line ETT NGT Ayala Consults: Ortho Decision Making: FatherAlix Code Status: Full IS PATIENT CRITICALLY ILL [...] Hillman APRN January 23, 2022 Critical Care [place] Team (pager [phone]) Dr. Robles is the attending of record [...] to the planned procedure. Hand Hygiene: The glass inserter did perform hand hygiene prior to line insertion. Catheter type: PICC Lot number: [id number] Procedure Technique: Skin was prepped with chlorhexidine. [...] location at time of insertion: ICU 4 [facility] Rogers Solano APRN Collette Rivas PA - [...] to the planned procedure. Hand Hygiene: The glass inserter did perform hand hygiene prior to arterial [...] to the planned procedure. Hand Hygiene: The glass inserter did perform hand hygiene prior to arterial [...] yes Patient location at time of insertion: [address] Procedure Comments: Entire procedure supervised by [...] location at time of insertion: ICU 3 [facility] Procedure Comments: Prior to dilation wire was [...] to the planned procedure. Hand Hygiene: The glass inserter did perform hand hygiene prior to arterial [...] Patient is medically ready for discharge to [facility] for acute rehab. Per [facility], patient can have PICC line in place for discharge. Needs for Transition of Care: Plan for discharge is: Acute Rehab Transportation: ambulance , [facility] 2:30pm Wheelchair van/Ambulance? Yes Ambulance transportation [...] and IADLs, drives, used towork for a [employer] company but is not currently working. Enjoys [...] set up out patient Suboxone once at [facility]. plans to call patient later today Assessment: Valeriy was welcoming and friendly. He was just starting PT so RC didn't stay long Interventions delivered: Other: Peer Support Plan: RC will continue to be available to patient via phone after DC Outstanding Discharge Needs: At time of discharge patient may require a buprenorphine script to bridge to outpatient MAT appointment, please page Psychiatry at [phone] if you need assistance with this. Time [...] outpatient Suboxone provider. He has spoken with [facility] in [place]. He plans to see them after DC [...] outpatient MAT appointment, please page Psychiatry at [phone] if you need assistance with this. Time [...] changed per flowsheet by this RN. RLE HEAD OF TRAINING AND DEVELOPMENT per MD instructions. Pt able to get [...] C.diff precautions d/naveed yesterday-pt room changed to [facility] so previous room can be cleansed per [...] LLE changed per flowsheet by this RN.RLE HEAD OF TRAINING AND DEVELOPMENT per MD instructions. Pt able to get [...] outpatient MAT appointment, please page Psychiatry at [phone] if you need assistance with this. Time [...] in the 60-day range as notedbelow.) Origin: [facility] Destination: [facility] Is the patient's stay covered [...] wheelchair van (i.e. seated during transport, without manager medical or monitoring?): No 4) In addition to [...] by the Centers of Medicare and MedicaidServices ([facility]) to support the determination of medical necessity [...] attending physician, this form was signed by Pastry Assistant Plan of Care - Corina Zabala RN - 03/18/2022 4:27 PM EDT OUTCOME EVALUATION NOTE: ?? OUTCOME SUMMARY: ?? Pt had a good day. VSS on RA. A&Ox4. HR tachy to the 110s to 120 at baseline. RIGGER THIRD discontinued. Prn oxy given with good effect. [...] outpatient MAT appointment, please page BIT at [phone] if you need assistance with this. Time spent with the patient (min):15 minutes Time spent on case coordination (min): 15 minutes Consult Note - Dilia Lemons - 03/18/2022 7:30 AM EDT [facility] Evaluation Referral source: Follow up Reason for [...] friendly. He is interested in starting Suboxone. [facility] has already given him information for [facility] in [facility] and will assist him in setting up out patient provider once he starts the treatment. Interventions delivered: Other: Peer Support Plan: will continue to follow patient for the remainder for admission. Outstanding Discharge Needs: At time of discharge patient may require a buprenorphine script to bridge to outpatient MAT appointment, please page Psychiatry at [phone] if you need assistance with this. Time spent with the patient (min):15 minutes Time spent on case coordination (min): 15 minutes Plan of Care - Corina Zabala RN - 03/17/2022 4:31 PM EDT OUTCOME EVALUATION NOTE: OUTCOME SUMMARY: Pt had a good day. VSS on RA. A&Ox4. HR tachy to the 110s to 120 at baseline. RIGGER THIRD decreased to 0.1mg. Prn oxy given with [...] Their notes will be sent by the [employer] Developer to the rehab facilities. Will likely have dressing change tomorrow. Currently weaning his dilaudid RIGGER THIRD. ?? Per IDR: 03/17/2022: Acute Rehab on [...] for discharge is: Acute Rehab Agency Referrals: [facility] Inpatient Rehabilitation Unit - [address] [address] [facility] Acute Rehabilitation and Sub-Acute (Swing) Rehab Levels of Care [address] [place] [address] Transportation: ambulance Discussed with patient on 03/16/2022. Barriers to discharge: Discharge planning Psych: Adjustment to diagnosis/illness, Coping/stress Plan going forward: ACS Care Management will continue to follow and assist with discharge planning and coordination of care as indicated. Anticipated Date of Discharge: 03/22/2022 Alexa Fonseca RN (Jonas) RN/CM - Cellphone: [phone] Pager: [phone] Covering Service RN/CM Care Management - Jamilah Fonseca RN - 03/17/2022 9:05 AM EDT RN/CM has called: Alix Holland (father) c: [phone] Dad's House: Mobile home; [address]. No steps inside of home. Dad visits almost daily to see his son. Dad will help him establish a PCP with the local [facility]. Per Dad, when pt gets home, his dad will be home as he is retired so he is available 21/02. His Mom is in [place] and she can come up and help [...] near future. Pt's has a brother in [place] - willing to have him come down there once he is physically able to do so. Work: [employer], [employer]iking through [place]. Pt's dad is hopeful that he'll be able to get backto his work. Alexa (Kenny) ÁNGEL Fonseca RN/CM - Cellphone: [phone] Pager: [phone] Covering Service RN/CM Plan of Care - Jayme Keenan RN - 03/16/2022 6:56 PM EDT OUTCOME EVALUATION NOTE: OUTCOME SUMMARY: Alix had a good shift today. Elevated BPs and tachycardic, other VSS on RA. Reporting 8 to 10/10 pain, using dilaudid RIGGER THIRD and PRN oxy given x2. Up to [...] and independence Monitor and control pain, weaning RIGGER THIRD, syringe expires 03/18 at 1755 Hoping to [...] roz Almanzar, personal items and call starks withinreach, room near unit station Care Management - Jamilah Fonseca RN - 03/16/2022 3:58 PM EDT Based on discussions with the multi-disciplinary healthcare team, the patient would benefit from Acute Rehab level of care at discharge. I have met with the patient to: ?? discuss discharge planning needs. ?? provide the [facility], Office of Care Management letter from the [employer] pertaining to rehab referrals. ?? provide a letter describing our affiliations within the [facility] and educate about their right to choose where referrals are sent. ?? provide the [facility] Star Quality Rating handout. ?? review the different levels of rehab including SNF, swing, and acute. ?? provide a list of facilities within their preferred geographic area. ?? request that they provide at least three choices for referral. They have requested referrals to: [facility] Inpatient Rehabilitation Unit - [address] [address] [facility] Acute Rehabilitation and Sub-Acute (Swing) Rehab Levels of Care [address] [place] [id number] Covid Vaccination Status: UNVACCINATED Does patient have COVID vaccine card: N/A Anticipated discharge date: 03/19/2022 Note routed to a Software Consultant who will communicate referrals to facilities and [...] go back to his dad's house in [facility]. RN/CM attempted to call: Alix Holland (Father) - Alix Holland (father) c: [phone]. RN/CM attempted calls to other family members: Marylou Holland (Sibling) - [phone] (H): phone call was not able to get through Josefina Holland (Grandparent) - [phone] (H): line busy Per patient, he was employed x 5 years. He is unsure if he'll have employment after all of this is completed and he is strong, healthy enough to workAmi Liu (Kenny) ÁNGEL Fonseca RN/CM - Cellphone: [phone] Pager: [phone] Covering Service RN/CM Consult Note - Dilia [...] RA. Reporting 8 to10/10 pain, using dilaudid RIGGER THIRD and PRN oxy given x2. Dressing change [...] and self care Monitor and control pain, RIGGER THIRD expires 03/16 1800 INDIVIDUALIZED FALL PREVENTION INTERVENTIONS: [...] Alexa Fonseca RN (Jonas) RN/CM - Cellphone: [phone] Pager: [phone] Covering Service RN/CM Op Note - Allison Kelly MD - 03/15/2022 9:02 AM EDT [facility] Operative Note Patient Name: Alix Holland : [id number] MR#: [id number] Case Date: 03/15/2022 Surgeon: Surgeon(s) and Role: [...] changes who ultimately underwent STSGs to the [facility] and [facility] on 03/10/22. He then returned [...] Operative Note Patient Name: Alix Holland : [id number] MR#: [id number] Case Date: 03/15/2022 Surgeon: Surgeon(s) and Role: [...] Used? N/A Consult Note - Thomas Julian [facility] - 03/14/2022 4:59 PM EDT Clinical Pharmacist Note-Vanc Alix Holland [id number] 1990 Alix Holland is a 31 y.o. [...] oz) Ht Readings from Last 1 Encounters: 08/03/22 188 cm (6' 2) Labs: Vancomycin: Vanc [...] have. Alternately, during off-hours you may call [phone] to contact a pharmacist. THOMAS JULIAN [facility] Pager [phone] Plan of Care - Adrienne Tejada RN [...] Operative Note Patient Name: Alix Holland : [id number] MR#: [id number] Case Date: 03/13/2022 Surgeon: Surgeon(s) and Role: [...] from the original note were not included. [facility] Operative Note Patient Name: Alix Holland : [id number] MR#: [id number] Case Date: 03/13/2022 Surgeon: Surgeon(s) and Role: [...] Reporting 8 to 10/10 pain, using dilaudid RIGGER THIRD and PRN oxy given x2. No BM this shift but pt now willing to take bowel meds, LBM 8/. Adequate UOP via urinal. NPO status maintained after midnight. PLAN MOVING FORWARD: Strict bedrest NPO for OR today Encourage self care Monitor and control pain, start weaning RIGGER THIRD INDIVIDUALIZED FALL PREVENTION INTERVENTIONS: Patient-specific fall risk factors per assessment: [current deficits]: Unfamiliar environment, recent surgeries, generalized weakness, lines and drains, pain, narcotics Assistance [level of assistance required for transfers and ambulation]: Bedrest, 2 assist to reposition Supervision [direct monitoring required during toileting and ADLs]: Hands on Surveillance [continuous indirect monbitoring]: Masimo, rounding, personal items and call [facility], room near unit station, bed alarm set Plan of Care - Adrienne Tejada RN - 03/12/2022 7:11 PM EDT OUTCOME EVALUATION NOTE: OUTCOME SUMMARY: Pt A&Ox4. Pt hypertensive and tachycardic. MD aware. A&Ox4. Pt denies SOB, N/V.Pain controlled witn RIGGER THIRD dilaudid and PRN pain meds. Neurovascular checks [...] Reporting 8 to 10/10 pain, using dilaudid RIGGER THIRD and PRN oxy given x2. No BM this shift, LBM 8/10. High UOP. MIVF discontinued. PLAN MOVING FORWARD: NPO tomorrow at midnight for OR Tuesday Encourage self care Monitor and control pain, start weaning RIGGER THIRD INDIVIDUALIZED FALL PREVENTION INTERVENTIONS: Patient-specific fall risk [...] and tachycardic. MD aware. Pain controlled witn RIGGER THIRD dilaudid and PRN pain meds. Neurovascular checks [...] ADLs]: hands on Surveillance [continuous indirect monitoring]: Yohan, abdoul starks within reach, purposeful rounding Patient-specific fall [...] VAC particularly not holding suction please page [phone] immediately given that thiswill affect skin graft take -High-protein high-calorie low Phos diet -Plan to return to the operating room on Tuesday for VAC removal, bedrest until then -RIGGER THIRD for pain control will wean as able [...] Alexa Fonseca RN (Jonas) RN/CM - Cellphone: [phone] Pager: [phone] Covering Service RN/CM Op Note - Veto Hidalgo MD - 03/10/2022 4:40 PM EDT [facility] Operative Note Patient Name: Alix Holland : [id number] MR#: [id number] Case Date: 03/10/2022 Surgeon: Surgeon(s) and Role: [...] Operative Note Patient Name: Alix Holland : [id number] MR#: [id number] Case Date: 03/10/2022 Surgeon: Surgeon(s) and Role: [...] Alexa Fonseca RN (Jonas) RN/CM - Cellphone: [phone] Pager: [phone] Covering Service RN/CM Plan of Care - [...] Sanabria MD - 03/03/2022 6:43 PM EDT [facility] Operative Note Patient Name: Alix Holland : [id number] MR#: [id number] Case Date: 03/03/2022 Surgeon: Surgeon(s) and Role: [...] good granulation tissue, minimal exposed tendon. Measures [id number] 3mm deep. One black sponge replaced and [...] closing). WILLIE SANABRIA MD 03/03/2022 Plan of [facility] - Carlita Malik RN - 03/03/2022 2:46 PM EDT Peripherally Inserted Central Catheter (PICC) Teaching Sheet Peripherally inserted central catheters ([id number]) (PICC) are used when you need IV [...] midline catheter? PICC lines are used for terminal operations supervisor treatments. PICC lines may be used for [...] can be set up via the nurse Hospice Care Transitions Coordinator to help you. What are possible complications [...] Efficacy, Safety, Use, and Administration of [employer] 2006 Plan of Care - Rhonda Coyle RN - 03/03/2022 6:10 AM EDT Outcome Evaluation Note: Outcome Summary: Pt A&Ox4, VSS on RA - expect tachycardic, afebrile. Reports 10/10 pain with PRN oxycodone. WoundVac x2 to suction, CDI. AUOP via urinal, no BM this shift. Pt NPO at midnight for OR [place] change. Labsdrawn and sent. [facility] Plan Moving Forward: Pain management. OR Individualized [...] Operative Note Patient Name: Alix Holland : [id number] MR#: [id number] Case Date: 03/01/2022 Surgeon: Surgeon(s) and Role: [...] Sanabria MD - 03/01/2022 8:09 PM EDT [facility] Operative Note Patient Name: Alix Holland : [id number] MR#: [id number] Case Date: 03/01/2022 ?? Surgeon: Surgeon(s) and [...] Betancourt MD - 02/26/2022 8:58 AM EDT [facility] Operative Note Patient Name: Alix Holland : [id number] MR#: [id number] Case Date: 02/26/2022 Surgeon: Surgeon(s) and Role: [...] and Serratia infections.?? RN at bedside with INSURANCE VERIFICATION REP; Patient has just returned from OR. RN [...] Risk Screen: no indicators present Current bed: [facility] Assessment: Patient is free of MASD at [...] Ajit Simmons RN on secure chat, pager [phone] or the wound care team at [phone] or pager [phone] with skin and wound care concerns or questions. Op Note - Elaine Dos Santos MD - 02/24/2022 12:14 PM EDT [facility] Operative Note Patient Name: Alix Holland : [id number] MR#: [id number] Case Date: 02/24/2022 Surgeon: Surgeon(s) and Role: [...] IV abx. Bed alarm on for safety. [facility] Plan Moving Forward: HD. Pain management. Wound [...] Outpatient Agency/Support Group Needs: None Agency Referrals: [facility] for HD Transportation: Family Plan going forward: Care Management will continue to follow and assist with discharge planning and coordination of care as indicated. Anticipated Date of Discharge: 02/26/2022 Lizzy Love RN, BSN Case Management Brief Op Note - Elaine Dos Santos MD - 02/22/2022 9:42 AM EDT Brief Operative Note Patient Name: Alix Holland : [id number] MR#: [id number] Case Date: 02/22/2022 Surgeon: Surgeon(s) and Role: [...] Santos MD - 02/22/2022 9:27 AM EDT [facility] Operative Note Patient Name: Alix Holland : [id number] MR#: [id number] Case Date: 02/22/2022 Surgeon: Surgeon(s) and Role: [...] diastolic. Notified MD. Tachycardia 110's, 130's w/activity, notified. Notified MD of hemoglobin 6.9, orders [...] Sandoval MD - 02/19/2022 10:20 AM EDT [facility] Operative Note Patient Name: Alix Holland : [id number] MR#: [id number] Case Date: 02/19/2022 Surgeon: Surgeon(s) and Role: [...] Pt remained NPO @ 0000 for OR. [facility] Plan Moving Forward: Pain control. NPO for [...] Operative Note Patient Name: Alix Holland : [id number] MR#: [id number] Case Date: 02/17/2022 Surgeon: Surgeon(s) and Role: [...] Armstrong MD - 02/17/2022 8:03 AM EDT [facility] Operative Note Patient Name: Alix Holland : [id number] MR#: [id number] Case Date: 02/17/2022 Surgeon: Surgeon(s) and Role: [...] the end of the case was correct. .??Patti??was present/available??for the entireprocedure. Surgical Infection Prevention Bundle [...] tomorrow. Asked GUEVARA Huff to look into [facility] D[facility] to determine any other information [...] Armstrong MD - 02/15/2022 2:08 PM EDT [facility] Operative Note Patient Name: Alix Holland : [id number] MR#: [id number] Case Date: 02/15/2022 Surgeon: Surgeon(s) and Role: [...] was cultured. We then removed the remaining Sedan. The wound was irrigated and measured wound [...] EVALUATION: Ongoing Consult Note - Maureen Ames [facility] - 02/13/2022 12:17 PM EDT Clinical Pharmacist Note - Renal Dose Adjustment for Antimicrobials Alix Holland (A# [id number]) is being treated with the following antimicrobial [...] Chatterjee MD - 02/13/2022 9:52 AM EDT [facility] Operative Note Patient Name: Alix Holland : [id number] MR#: [id number] Case Date: 02/13/2022 Surgeon: Surgeon(s) and Role: [...] PCP: None Primary Team #: ICU (Juan #[id number]) CC: findings of CTH HPI: Alix Holland [...] he was following commands upon arrival to [facility] ICU. CTH showed bilateral symmetric globus pallidi [...] Arteriogram Lower Extremity 02/06/2022 Nicole Vivas MD [facility] INTERVENTIONL RAD ??? PRO DEBRIDEMENT BONE EA ADDL 20 SQCM 02/08/2022 EACH ADDITIONAL 20 SQ CM, OR PART THEREOF (WRVU 1.8) performed by Jeanette Chatterjee MD at [facility] PAIGE ? ? PRO DEBRIDEMENT BONE MUSCLE &/FASCIA 20 SQ CM/< Left 01/29/2022 DEBRIDEMENT SKIN, SUBCU, MUSCLE, BONE, LOWER EXTREMITY (WRVU 4.1) performed by Tom Valdovinos MD [facility] MAIN OR ? ? PRO DEBRIDEMENT BONE MUSCLE &/FASCIA 20 SQ CM/< Left 01/31/2022 DEBRIDEMENT SKIN, SUBCU, MUSCLE, BONE, LOWER EXTREMITY (WRVU 4.1) performed by Jose Branch MD at [facility] MAIN OR ? ? PRO DEBRIDEMENT BONE MUSCLE &/FASCIA 20 SQ CM/< Left 01/31/2022 DEBRIDEMENT SKIN, SUBCU, MUSCLE, BONE UPPER EXTREMITY (WRVU 4.1) performed by Jose Branch MDat [facility] MAIN OR ? ? PRO DEBRIDEMENT BONE MUSCLE &/FASCIA 20 SQ CM/< Left 02/02/2022 DEBRIDEMENT SKIN, SUBCU, MUSCLE, BONE UPPER EXTREMITY (WRVU 4.1) performed by Hina Starks MD at [facility] MAIN OR ? ? PRO DEBRIDEMENT BONE MUSCLE &/FASCIA 20 SQ CM/< Left 02/02/2022 DEBRIDEMENT SKIN, SUBCU, MUSCLE, BONE, LOWER EXTREMITY (WRVU 4.1) performed by Hina Starks MD at [facility] MAIN OR ? ? PRO DEBRIDEMENT MUSCLE AND FASCIA 20 SQ CM/< Left 01/26/2022 DEBRIDEMENT SKIN, SUBCU, MUSCLE, LOWER EXTREMITY (WRVU 2.7) performed by Sigifredo Garcia MD at [facility] MAIN OR ? ? PRO DEBRIDEMENT MUSCLE AND FASCIA 20 SQ CM/< Left 01/26/2022 DEBRIDEMENT SKIN, SUBCU, MUSCLE, UPPER EXTREMITY (WRVU 2.7) performed by Sigifredo Garcia MD at [facility] OR ? ? PRO DEBRIDEMENT MUSCLE AND FASCIA 20 SQ CM/< Left 02/05/2022 DEBRIDEMENT SKIN, SUBCU, MUSCLE, LOWER EXTREMITY (WRVU 2.7) performed by Tom Valdovinos MD at [facility] OR ? ? PRO DEBRIDEMENT MUSCLE AND FASCIA 20 SQ CM/< Left 02/04/2022 DEBRIDEMENT SKIN, SUBCU, MUSCLE, LOWER EXTREMITY (WRVU 2.7) performed by Sigifredo Garcia MD at [facility] OR ? ? PRO DEBRIDEMENT SUBCUTANEOUS TISSUE 20 SQCM/< Left 02/04/2022 DEBRIDEMENT SKIN AND SUBCU, UPPER EXTREMITY (WRVU 1.01) [facility] ? ? PRO DEBRIDEMENT SUBCUTANEOUS TISSUE 20 SQCM/< Left 02/08/2022 DEBRIDEMENT SKIN AND SUBCU, LOWER EXTREMITY (WRVU 1.01) performed by Jeanette Chatterjee MD at [facility] OR ? ? PRO DEBRIDEMENT SUBCUTANEOUS TISSUE 20 SQCM/< Left 02/09/2022 DEBRIDEMENT SKIN AND SUBCU, LOWER EXTREMITY (WRVU 1.01) performed by Jeanette Chatterjee MD at [facility] OR ??? PRO DECOMP FOREARM, 2 COMPART, W/O DEBRIDE Left 01/23/2022 FASCIOTOMY; FOREARM AND\OR WRIST, FLEXOR & EXTENS. COMP (WRVU 10.79) performed by Sigifredo Garcia MD at [facility] OR ??? PRO DECOMPRESS ANT/LAT+POST LEG CMPART Left 01/23/2022 FASCIOTOMY, LOWER LEG, ALL COMPARTMENTS (WRVU 7.82) performed by Sigifredo Garcia MD at [facility] OR ? ? PRO I&D DEEP ABSCESS BURSA/HEMATOMA THIGH/KNEE REGION Left 02/06/2022 INCISION & DRAINAGE ABSCESS OR HEMATOMA, THIGH, KNEE SUPERFICIAL (WRVU 6.78) performed by Jayme Armstrong MD at [facility] OR ??? PRO INCIS OF HIP/THIGH FASCIA Left 01/23/2022 @FASCIOTOMY,THIGH OR HIP FOR COMPARTMENT SYNDROME (WRVU 12.89) performed by Sigifredo Garcia MD at [facility] MAIN OR ??? PRO NEGATIVE PRESSURE WOUND THERAPY, LESS THAN OR EQUAL TO 50 SQCM Left 02/05/2022 DRESSING CHANGE (VAC ASSISTED) UP TO 50SQ.CM (WRVU 0.55) performed by Orville Hennessy MD at [facility] MAIN OR ??? PRO NEGATIVE PRESSURE WOUND THERAPY, LESS THAN OR EQUAL TO 50 SQCM Left 02/05/2022 DRESSING CHANGE (VAC ASSISTED) UP TO 50SQ.CM (WRVU 0.55) performed by Tom Valdovinos MD at [facility] MAIN OR ??? PRO NEGATIVE PRESSURE WOUND THERAPY, LESS THAN OR EQUAL TO 50 SQCM Left 02/08/2022 DRESSING CHANGE (VAC ASSISTED) UP TO 50SQ.CM (WRVU 0.55) performed by Jeanette Chatterjee MD at [facility] MAIN OR ??? PRO OPEN TREAT MANDIBLE CONDYLE FX, COMPL 04/27/2013 OPEN TREATMENT, COMPLEX MANDIBLE FX., MULTI APPROACH, W/ FIXATION performed by Kishore Neil MD at [facility] MAIN OR ??? PRO REVISE MEDIAN N/CARPAL TUNNEL SURG Left 01/23/2022 MEDIAN NERVE DECOMPRESSION (CARPAL TUNNEL RELEASE) (WRVU 4.97) performed by Sigifredo Garcia MD at [facility] MAIN OR ??? PRO SEC CLSR SURG WOUND/DEHSN EXTENSIVE/COMPLICATED Left 01/26/2022 SECONDARY CLOSURE SURGICAL WOUND OR DEHISCENCE, EXTENSIVE OR COMPLICATED, UPPER EXTREMITY (WRVU 12.04) performed by Sigifredo Garcia MD at [facility] MAIN OR Home Medications: No current [...] year, name, knows why he is at [facility], knows he is at [facility], follows complex commands. More alert than prior; [...] 96* -- 96* CO2 21* -- -- -- 22 BUN 39* -- -- 23* [...] 02/10/2022 HCT 20.7 (L) 02/09/2022 Current bed: [facility] Assessment: The skin of the buttocks with [...] privacy for the patient. 2. Apply the Lyndon sheet with Body Pad under the patient with the tag on the underside of the Lyndon Sheet unfolded toward head of bed. Align upper edge of Lyndon Sheet with patient's shoulders. 3. Gently slide [...] chat or the wound care team at [phone] or pager [phone] with skin and wound care concerns or [...] off for discharge. We recommend stopping the RIGGER THIRD and increasing the frequency of the PRNoxycodone to make up for any decrease in coverage. There is no role for IV pain medication in his care except for rescue and OR. The dronabinol can also be increased. Recommendations: - D/C hydromorphone RIGGER THIRD - increase oxy sliding scale to Q3h - avoid IV opioids (other than rescue and OR) - increase dronabinol to 15mg PO BID Plan discussed with patient, his partner, and the primary team. Recommendations are above, please page if further consultation is required. Nicholas Modi MD 02/11/2022 Acute Pain Service Pager: [phone] I have seen and examined the patient. I have reviewed Dr. Modi's note and agree with the findings, assessment and plan. Op Note - Kaitlyn Rock MD - 02/11/2022 11:09 AM EDT [facility] Operative Note Patient Name: Alix Holland : [id number] MR#: [id number] Case Date: 02/11/2022 Surgeon: Surgeon(s) and Role: [...] CONSULTATION NOTE Patient ID: Alix Holland Room: [address] [place] [id number] Reason for Consult: Surgical site infection and [...] issues with pain control and PO and RIGGER THIRD currently helping somewhat. States that he has [...] his dad Used to work in a [employer] Could not assess sexual and drug history [...] Antimicrobial Therapies (during this admission): 01/23-02/01: Zosyn 02/01-7/14: vanco po, 125mg q 6 Cefazolin 02/01-02/07 [...] Lorenza Jha MD Infectious Diseases Fellow Pager: [phone] 02/11/2022 9:21 AM ID Attending I have [...] cerebellar kennedy infarct 01/24 CT angio carotids, little shell tribe of [place] n[place] NEW PROBLEMS - #Wound [...] Chatterjee MD - 02/09/2022 4:57 PM EDT [facility] Operative Note Patient Name: Alix Holland : [id number] MR#: [id number] Case Date: 02/09/2022 Surgeon: Surgeon(s) and Role: [...] Operative Note Patient Name: Alix Holland : [id number] MR#: [id number] Case Date: 02/08/2022 Surgeon: Surgeon(s) and Role: [...] Please contact Naomy Liao RN on pager [phone] or the wound care team at [phone] with skin and wound care concerns or questions. Op Note - Jeanette Chatterjee MD - 02/08/2022 4:18 PM EDT [facility] Operative Note Patient Name: Alix Holland : [id number] MR#: [id number] Case Date: 02/08/2022 Surgeon: Surgeon(s) and Role: [...] N/A Prescription Coverage: No Preferred Pharmacy: [facility] [address] [phone] [facility] [address] [place] [address] - [address] [facility] [address] [facility] [address] Plan for discharge is: Pending Hospital Course [...] Armstrong MD - 02/06/2022 4:09 PM EDT [facility] Operative Note Patient Name: Alix Holland : [id number] MR#: [id number] Case Date: 02/06/2022 Surgeon: Surgeon(s) and Role: [...] artery ?? Mynx Closure device deployed, R INFORMATION SERVICES MANAGER Findings of the procedure: ?? 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 Transfer back to ICU 2. Flat for 2 hours, following Right INFORMATION SERVICES MANAGER Mynx closure deployment 3. Monitor for Right [...] to wound vac on LUE. Pt using RIGGER THIRD for pain control. PT to OR midday. [...] per assessment: [current deficits]: Severely limited mobility, RIGGER THIRD pump, central venous access., wound vacs Assistance [...] Valdovinos MD - 02/05/2022 1:17 PM EDT [facility] Operative Note Panel 1 Patient Name: Alix Holland : [id number] MR#: [id number] Case Date: 02/05/2022 Surgeon: Surgeon(s) and Role: [...] Hennessy MD - 02/05/2022 1:17 PM EDT [facility] Operative Note Patient Name: Alix Holland : [id number] MR#: [id number] Case Date: 02/05/2022 Surgeon: Surgeon(s) and Role: [...] Operative Note Patient Name: Alix Holland : [id number] MR#: [id number] Case Date: 02/04/2022 Surgeon: Surgeon(s) and Role: [...] Garcia MD - 02/04/2022 5:38 PM EDT [facility] Operative Note Patient Name: Alix Holland : [id number] MR#: [id number] Case Date: 02/04/2022 Surgeon: Surgeon(s) and Role: [...] (WRVU 4.1) performed by Tom Valdovinos MD [facility] MAIN OR ? ? PRO DEBRIDEMENT BONE MUSCLE &/FASCIA 20 SQ CM/< Left 01/31/2022 DEBRIDEMENT SKIN, SUBCU, MUSCLE, BONE, LOWER EXTREMITY (WRVU 4.1) performed by Jose Branch MD at [facility] MAIN OR ? ? PRO DEBRIDEMENT BONE MUSCLE &/FASCIA 20 SQ CM/< Left 01/31/2022 DEBRIDEMENT SKIN, SUBCU, MUSCLE, BONE UPPER EXTREMITY (WRVU 4.1) performed by Jose Branch MDat [facility] MAIN OR ? ? PRO DEBRIDEMENT BONE MUSCLE &/FASCIA 20 SQ CM/< Left 02/02/2022 DEBRIDEMENT SKIN, SUBCU, MUSCLE, BONE UPPER EXTREMITY (WRVU 4.1) performed by Hina Starks MD at [facility] MAIN OR ? ? PRO DEBRIDEMENT BONE MUSCLE &/FASCIA 20 SQ CM/< Left 02/02/2022 DEBRIDEMENT SKIN, SUBCU, MUSCLE, BONE, LOWER EXTREMITY (WRVU 4.1) performed by Hina Starks MD at [facility] OR ? ? PRO DEBRIDEMENT MUSCLE AND FASCIA 20 SQ CM/< Left 01/26/2022 DEBRIDEMENT SKIN, SUBCU, MUSCLE, LOWER EXTREMITY (WRVU 2.7) performed by Sigifredo Garcia MD at [facility] MAIN OR ? ? PRO DEBRIDEMENT MUSCLE AND FASCIA 20 SQ CM/< Left 01/26/2022 DEBRIDEMENT SKIN, SUBCU, MUSCLE, UPPER EXTREMITY (WRVU 2.7) performed by Sigifredo Garcia MD at [facility] MAIN OR ??? PRO DECOMP FOREARM, 2 COMPART, W/O DEBRIDE Left 01/23/2022 FASCIOTOMY; FOREARM AND\OR WRIST, FLEXOR & EXTENS. COMP (WRVU 10.79) performed by Sigifredo Garcia MD at [facility] MAIN OR ??? PRO DECOMPRESS ANT/LAT+POST LEG CMPART Left 01/23/2022 FASCIOTOMY, LOWER LEG, ALL COMPARTMENTS (WRVU 7.82) performed by Sigifredo Garcia MD at [facility] MAIN OR ??? PRO INCIS OF HIP/THIGH FASCIA Left 01/23/2022 @FASCIOTOMY,THIGH OR HIP FOR COMPARTMENT SYNDROME (WRVU 12.89) performed by Sigifredo Garcia MD at [facility] OR ??? PRO OPEN TREAT MANDIBLE CONDYLE FX, COMPL 04/27/2013 OPEN TREATMENT, COMPLEX MANDIBLE FX., MULTI APPROACH, W/ FIXATION performed by Kishore Neil MD at [facility] OR ??? PRO REVISE MEDIAN N/CARPAL TUNNEL SURG Left 01/23/2022 MEDIAN NERVE DECOMPRESSION (CARPAL TUNNEL RELEASE) (WRVU 4.97) performed by Sigifredo Garcia MD at [facility] MAIN OR ??? PRO SEC CLSR SURG WOUND/DEHSN EXTENSIVE/COMPLICATED Left 01/26/2022 SECONDARY CLOSURE SURGICAL WOUND OR DEHISCENCE, EXTENSIVE OR COMPLICATED, UPPER EXTREMITY (WRVU 12.04) performed by Sigifredo Garcia MD at [facility] OR MEDS: No current facility-administered medications on [...] Kenny Brandon MD Plastic surgery team pager: [phone] Attending: Plan discussed and agree as documented. [...] PCP: None Primary Team #: ICU (Juan #[id number]) CC: findings of CTH HPI: Alix Holland [...] he was following commands upon arrival to [facility] ICU. CTH showed bilateral symmetric globus pallidi [...] no acute intervention Today: - pain control: RIGGER THIRD, received dilaudid IV x 1 yesterday for breakthrough. > APS following for pain control recs - reports significant pain in LUE mainly this AM '05/10' Current Medications: Scheduled Meds: ??? RIGGER THIRD shift total and Settings verification Intravenous 2 Times Daily- RIGGER THIRD Shift Total ??? vancomycin 125 mg Oral [...] (WRVU 4.1) performed by Tom Valdovinos MD [facility] MAIN OR ? ? PRO DEBRIDEMENT BONE MUSCLE &/FASCIA 20 SQ CM/< Left 01/31/2022 DEBRIDEMENT SKIN, SUBCU, MUSCLE, BONE, LOWER EXTREMITY (WRVU 4.1) performed by Jose Branch MD at [facility] MAIN OR ? ? PRO DEBRIDEMENT BONE MUSCLE &/FASCIA 20 SQ CM/< Left 01/31/2022 DEBRIDEMENT SKIN, SUBCU, MUSCLE, BONE UPPER EXTREMITY (WRVU 4.1) performed by Jose Branch, Ferdinandt [facility] MAIN OR ? ? PRO DEBRIDEMENT MUSCLE AND FASCIA 20 SQ CM/< Left 01/26/2022 DEBRIDEMENT SKIN, SUBCU, MUSCLE, LOWER EXTREMITY (WRVU 2.7) performed by Sigifredo Garcia MD at [facility] MAIN OR ? ? PRO DEBRIDEMENT MUSCLE AND FASCIA 20 SQ CM/< Left 01/26/2022 DEBRIDEMENT SKIN, SUBCU, MUSCLE, UPPER EXTREMITY (WRVU 2.7) performed by Sigifredo Garcia MD at [facility] MAIN OR ??? PRO DECOMP FOREARM, 2 COMPART, W/O DEBRIDE Left 01/23/2022 FASCIOTOMY; FOREARM AND\OR WRIST, FLEXOR & EXTENS. COMP (WRVU 10.79) performed by Sigifredo Garcia MD at [facility] MAIN OR ??? PRO DECOMPRESS ANT/LAT+POST LEG CMPART Left 01/23/2022 FASCIOTOMY, LOWER LEG, ALL COMPARTMENTS (WRVU 7.82) performed by Sigifredo Garcia MD at [facility] MAIN OR ??? PRO INCIS OF HIP/THIGH FASCIA Left 01/23/2022 @FASCIOTOMY,THIGH OR HIP FOR COMPARTMENT SYNDROME (WRVU 12.89) performed by Sigifredo Garcia MD at [facility] OR ??? PRO OPEN TREAT MANDIBLE CONDYLE FX, COMPL 04/27/2013 OPEN TREATMENT, COMPLEX MANDIBLE FX., MULTI APPROACH, W/ FIXATION performed by Kishore Neil MD at [facility] MAIN OR ??? PRO REVISE MEDIAN N/CARPAL TUNNEL SURG Left 01/23/2022 MEDIAN NERVE DECOMPRESSION (CARPAL TUNNEL RELEASE) (WRVU 4.97) performed by Sigifredo Garcia MD at [facility] OR ??? PRO SEC CLSR SURG WOUND/DEHSN EXTENSIVE/COMPLICATED Left 01/26/2022 SECONDARY CLOSURE SURGICAL WOUND OR DEHISCENCE, EXTENSIVE OR COMPLICATED, UPPER EXTREMITY (WRVU 12.04) performed by Sigifredo Garcia MD at [facility] MAIN OR Home Medications: No current [...] year, name, knows why he is at [facility], knows he is at [facility], follows complex commands. Very sleepy on exam, [...] his local injuriesand post-surgical changes than his ETCHER ELECTROLYTIC findings. No additional workup or intervention indicated [...] Medicine & Clinical Neurophysiology Op Note - iHna Starks MD - 02/02/2022 2:39 PM EDT Images from the original note were not included. [facility] Operative Note Patient Name: Alix Holland : [id number] MR#: [id number] Case Date: 02/02/2022 Surgeon: Surgeon(s) and Role: * Hina Starks MD - Primary * Ama Dickerson PA - Physician Bridge Expert * Terry Vázquez MD - Resident Preoperative [...] N/A Prescription Coverage: No Preferred Pharmacy: [facility] [facility], [place] - [address] [facility] [address] [facility] [phone] [facility] [address] - [place], [place] - [address] [facility] [place] [address] Plan for discharge is: Pending Hospital Course [...] changes of note to overall assessment. Dilaudid RIGGER THIRD with good effect on pain. Pt slept [...] w/ minimal effect. Pt switched over to RIGGER THIRD pump w/ some improvement in pain. Wound [...] Branch MD - 01/31/2022 11:09 AM EDT [facility] Operative Note Patient Name: Alix Holland : [id number] MR#: [id number] Case Date: 01/31/2022 Surgeon: Surgeon(s) and Role: [...] Patient was met in his room, green little shell tribe was placed in the left upper and [...] Valdovinos MD - 01/29/2022 3:50 PM EDT [facility] Operative Note Patient Name: Alix Holland : [id number] MR#: [id number] Case Date: 01/29/2022 Surgeon: Surgeon(s) and Role: [...] after fentanyl overdose. He was taken to [facility] where he had a cardiac arrest,??ROSC, and??he was intubated and sedated. He??was then transferred to [facility] for further care. ??Labs showed he had [...] then extubated and transferred back to [facility] without any complication. Dr. Valdovinos was present [...] Modi MD 01/29/2022 Acute Pain Service Pager: [phone] I have seen and examined the patient, [...] PREVENTION INTERVENTIONS: bed in low position, call starsk within reach. Patient-specific fall risk factors per [...] multiple compartment fasciotomies and on CRRT for LATHEA. Also found to be COVID positive. Recommendations: [...] Major MD 01/28/2022 Acute Pain Service Pager: [phone] Associated attestation - Nathan Ricardo MD - [...] Affect: flat Labs: Art pH/pCO2/pO2/HCO3: 7.45/33/114/22.4 (01/25 0622) WBC/Hgb/Hct/Plts: 18.9* 11.6* 34.2* 100* (01/27 1022) [...] Major MD 01/27/2022 Acute Pain Service Pager: [phone] Associated attestation - Nathan Ricardo MD - 02/03/2022 4:20 PM EDT I have seen and examined the patient, providing hutton components as outlined below. I have reviewed the resident???s above note; Consult Note - Adela Hackett DO - 01/27/2022 9:05 AM EDT Neurology Consultation Note - 01/27/2022 Patient name: Alix Holland Date of : 1990 PCP: None Primary Team #: ICU (Juan #[id number]) CC: findings of CTH HPI: Alix Holland [...] he was following commands upon arrival to [facility] ICU. CTH showed bilateral symmetric globus pallidi [...] 4.1) performed by Sigifredo Garcia MD at [facility] MAIN OR ? ? PRO DEBRIDEMENT BONE MUSCLE &/FASCIA 20 SQ CM/< Left 01/26/2022 DEBRIDEMENT SKIN, SUBCU, MUSCLE, BONE, LOWER EXTREMITY (WRVU 4.1) performed by Sigifredo Garcia MD [facility] MAIN OR ??? PRO DECOMP FOREARM, 2 COMPART, W/O DEBRIDE Left 01/23/2022 FASCIOTOMY; FOREARM AND\OR WRIST, FLEXOR & EXTENS. COMP (WRVU 10.79) performed by Sigifredo Garcia MD at [facility] MAIN OR ??? PRO DECOMPRESS ANT/LAT+POST LEG CMPART Left 01/23/2022 FASCIOTOMY, LOWER LEG, ALL COMPARTMENTS (WRVU 7.82) performed by Sigifredo Garcia MD at [facility] MAIN OR ??? PRO INCIS OF HIP/THIGH FASCIA Left 01/23/2022 @FASCIOTOMY,THIGH OR HIP FOR COMPARTMENT SYNDROME (WRVU 12.89) performed by Sigifredo Garcia MD at [facility] MAIN OR ??? PRO OPEN TREAT MANDIBLE CONDYLE FX, COMPL 04/27/2013 OPEN TREATMENT, COMPLEX MANDIBLE FX., MULTI APPROACH, W/ FIXATION performed by Kishore Neil MD at [facility] MAIN OR ??? PRO REVISE MEDIAN N/CARPAL TUNNEL SURG Left 01/23/2022 MEDIAN NERVE DECOMPRESSION (CARPAL TUNNEL RELEASE) (WRVU 4.97) performed by Sigifredo Garcia MD at [facility] MAIN OR Home Medications: No current [...] year, name, knows why he is at [facility], knows he is at [facility], follows complex commands. CN: PERRL, EOMI Tongue [...] as documented. Josh Boyd D.O. Neurology Department [facility] [email or web address] Plan of Care - Halley Hoyt RN [...] Garcia MD - 01/26/2022 4:23 PM EDT [facility] Operative Note Patient Name: Alix Holland : [id number] MR#: [id number] Case Date: 01/26/2022 Surgeon: Surgeon(s) and Role: [...] after fentanyl overdose. He was taken to [facility] where he had a cardiac arrest, ROSC, and he was intubated and sedated. He was then transferred to [facility] for [facility] care. Labs showed he had hyperkalemia, acidosis, [...] Insurance: N/A Prescription Coverage: Yes Preferred Pharmacy: [id number] [id number] [facility] - [place], [place] - [address] [facility] [address] [facility] [address] Plan for discharge is: Pending Hospital Course [...] Component Value Date COVID19 Detected (A) 01/23/2022 [id number] Not Detected 04/26/2021 Past medical History: Past [...] Alix) would be surrogate decision maker [place] law. (Only good for 180 days) Any patient receiving care at [facility] must abide by [place] law. The hierarchy for surrogate decision making [...] (i) The agent with financial power of patent attorney or a conservator appointed in accordance [...] Current DME: none Home Address listed as: [address] [address] Social & Family Supports: All names listed below confirmed with patient as current and correct Extended Emergency Contact Information Primary Emergency Contact: Josefina Holland Relation: Mother Secondary Emergency Contact: Marylou Holland [facility] Relation: Sibling Father: Alix Holland [facility] Current Care Provided by: self [...] Insurance: N/A Prescription Coverage: No [facility] [place] [phone] [facility] [address] [phone] [facility] - [place], [place] - [address] [facility] [address] [place] Status: Patient is a : No Primary [...] of care planning. ARIN Lieberman, M-SW Continuing As400 DeveloperOffice Professional of Neurology [phone] Consult Note - Adela Hackett DO - 01/25/2022 9:59 AM EDT Neurology Consultation Note - 01/25/2022 Patient name: Alix Holland Date of : 1990 PCP: None Primary Team #: ICU (Juan #[id number]) CC: findings of CTH HPI: Alix Holland [...] he was following commands upon arrival to [facility] ICU. CTH showed bilateral symmetric globus pallidi [...] 10.79) performed by Sigifredo Garcia MD at [facility] MAIN OR ??? PRO DECOMPRESS ANT/LAT+POST LEG CMPART Left 01/23/2022 FASCIOTOMY, LOWER LEG, ALL COMPARTMENTS (WRVU 7.82) performed by Sigifredo Garcia MD at [facility] MAIN OR ??? PRO INCIS OF HIP/THIGH FASCIA Left 01/23/2022 @FASCIOTOMY,THIGH OR HIP FOR COMPARTMENT SYNDROME (WRVU 12.89) performed by Sigifredo Garcia MD at [facility] MAIN OR ??? PRO OPEN TREAT MANDIBLE CONDYLE FX, COMPL 04/27/2013 OPEN TREATMENT, COMPLEX MANDIBLE FX., MULTI APPROACH, W/ FIXATION performed by Kishore Neil MD at [facility] MAIN OR ??? PRO REVISE MEDIAN N/CARPAL TUNNEL SURG Left 01/23/2022 MEDIAN NERVE DECOMPRESSION (CARPAL TUNNEL RELEASE) (WRVU 4.97) performed by Sigifredo Garcia MD at [facility] MAIN OR Home Medications: No current facility-administered [...] Hackett, DO Neurology PGY-2 Neurology Consult Service# [id number] 01/25/2022 Associated attestation - Josh Boyd DO [...] as documented. Josh Boyd D.O. Neurology Department [facility] [email or web address] Consult Note - Charlotte Castañeda RD - [...] On CRRT If patient switches to shift FIGURE CLERK or HD please consult nutrition for new [...] discuss plan with provider ARLETH Martinez pager #[phone]. All Active TF Orders: Nepro with goal [...] encounter: 113 kg (249 lb 1.9 oz). [place] Body Weight: 81 kg Usual Body Weight: [...] today for wound vacs. Estimated needs: Calories: 9645-0030 (20-25 kcal/kg IBW) for the first 7-10 [...] Protein-calorie Malnutrition: Not enough data to assess (Nelia JPPARTH J Parenteral Enteral Nutr. 2011; 36(3): 273-83) Nutrition to continue to follow up while inpatient Thank you, Charlotte Castañeda RD Pager #:[phone] Plan of Care - Forest Blankenship RN [...] PCP: None Primary Team #: ICU (Green #[id number]) CC: findings of CTH HPI: Alix Holland [...] he was following commands upon arrival to [facility] ICU. CTH showed bilateral symmetric globus pallidi [...] mEq/L K+, 3 mEq/L Ca++ Stopped (01/23/22 07) ??? [MAR Hold] sodium phosphate Stopped (01/23/22 [...] FIXATION performed by Kishore Neil MD at [facility] MAIN OR Home Medications: No current [...] >220,000 (H) 0 - 200 unit/L TSH [place] Result Value Ref Range TSH 7.69 (H) [...] mcL Appearance UA Cloudy (A) Clear Spec [place] UA >=1.030 (A) 1.006 - 1.030 Color [...] as documented. Josh Boyd D.O. Neurology Department [facility] [email or web address] Op Note - Sigifredo Garcia MD - 01/23/2022 8:28 AM EDT [facility] Operative Note Patient Name: Alix Holland : [id number] MR#: [id number] Case Date: 01/23/2022 Surgeon: Surgeon(s) and Role: [...] after fentanyl overdose. He was taken to [facility] where he had a cardiac arrest, ROSC, and he was intubated and sedated. He was then transferred to [facility] for urther care. Labs showed he had hyperkalemia, acidosis, ALTHEA. There was concern for a swollen left forearm so orthopedics was consulted. On exam his forearm was firm, but exam was limited due to patient's mental status. Therefore Oncimmune pressure monitor was used to measure the [...] to the transverse carpal ligament. Using a [place] and [facility] retractors, the transverse carpal ligament was exposed [...] evaluation and treatment. Please page Orthopaedic consults ([phone]) with any questions or co ncerns. ?? [...] father afterfentanyl overdose. He was taken to [facility] where he had a cardiac arrest, ROSC, and he was intubated and sedated. He was then transferred to [facility] for further care. Labs showed he had [...] Procedure visit Neurology Summer Wiggins MD [facility] NEUROLOGY DEPT [place], [place] [address] (Wo rk) Pending Results Name [...] 022 until 1ST 25 SQ CM WOUND AREA (WRVU 1.83) Nerve conduction test Neurology [...] n the results section. MODIFIER WOUND VAC 02/11/2022 9:34 LUE and [...] Routine 02/09/2022 5:43 Result s for this ([facility]) PM EDT procedure are i n the [...] n the results section. BLOOD GAS VENOUS ([facility]) STAT 01/26/2022 6:19 Re sults for this [...] are i n the results section. CT [place] Routine 01/24/2022 11:32 Re [...] Routine 01/23/2022 7:21 Result s for this ([facility]) AM EDT [...] P athologist Signature Neutrophils % 65.3 % [facility] Neutr Abs (ANC) 5.26 1.70 - [facility] 6.10 [facility] x10(3)/[facility] LABORATORY Lymphocytes % 17.2 % [facility] Lymphocytes Abs 1.4 0.9 - 3.2 [facility] x10(3)/[facility] LABORATORY Monocytes % 11.0 % [facility] Monocyte Abs 0.9 0.3 - 0.9 [facility] x10(3)/[facility] LABORATORY Eosinophils % 4.6 % [facility] Eosinophils Abs 0.4 0.0 - 0.4 [facility] x10(3)/[facility] LABORATORY Basophils % 0.7 % [facility] Basophils Abs 0.1 0.0 - 0.1 [facility] x10(3)/[facility] LABORATORY Immature Gran % 1.20 % [facility] Comment: Immature granulocytes(IG's)percentage an d absolute count will include metamyelocytes, myelocytes, and promyelo cytes. Blood smears from CBCs yielding IG's will be scanned manually for concor dance. If this scan disagrees with the automated IG or if promyelocytes are not ed, a manual differential will be performed. Gemini Gran Abs 0.10 (H) 0.00 - 0.04 x10(3)/[facility] LABORATORY Specimen Anatomical Collection Method Collection Time Receive d Time (Source) Location / / Volume Laterality Blood 03/23/2022 4:35 AM 5:10 EDT AM EDT Resulting Agency Comment Spec In Lab Jhony Carnes MD HEMATOLOGY ORDERABLES Performing Organization Address City/State/Z[place] [address] (ABNORMAL) Hemogram (03/23/2022 4:35 AM EDT) Analysis Performed At Patho logist Time Signature WBC 8.1 4.0 - 9.5 [facility] x10(3)/[facility] LABORATORY RBC 2.96 (L) 4.58 - [facility] 5.54 [facility] x10(6)/[facility] LABORATORY Hemoglobin 8.9 (L) 13.7 - [facility] 16.5 g/dL [facility] LABORATORY Hematocrit 26.2 (L) 40.5 - [facility] 48.5 % [facility] LABORATORY MCV 88.5 82.9 - [facility] 93.1 [facility] LABORATORY MCH 30.1 27.5 - [facility] 32.1 pg [facility] LABORATORY MCHC 34.0 32.0 - [facility] 35.7 g/dL [facility] LABOR[facility]ORY Platelets 230 145 - 357 [facility] x10(3)/[facility] LABORATORY RDWSD 48.9 (H) 36.0 - [facility] 45.0 [facility] LABORATORY RDWCV 15.3 (H) 11.4 - [facility] 13.8 % [facility] LABORATORY MPV 9.8 7.6 - 12.9 [facility] LABORATORY nRBC % Auto 0.0 % [facility] nRBC Abs Auto 0.000 0.000 - [facility] 0.000 [facility] x10(3)/[facility] LABORATORY Specimen Anatomical Collection Method Collection Time Receive d Time (Source) Location / / Volume Laterality Blood 03/23/2022 4:35 AM 5:10 EDT AM EDT Resulting Agency Comment Spec In Lab Jhony Carnes MD HEMATOLOGY ORDERABLES Performing Organization Address City/State/ZIP [place] [address] (ABNORMAL) Basic Metabolic Panel (non-fasting) (03/23/2022 3:00 AM EDT) P athologist Signature Glucose Lvl 102 65 - 199 [facility] mg/dL [facility] Comment: Diabetes: >=200 mg/dL plus symp toms BUN 15 10 - 20 mg/dL [facility] LABORATORY Creatinine 0.55 (L) 0.80 - 1.50 mg/dL [facility] LABORATORY Sodium 139 135 - 145 mmol/L [facility] Potassium 4.1 3.5 - 5.0 mmol/L [facility] Comment: Please note: ??Patients with WBC >100,00 0 may have falsely elevated Potassium levels. ??For accurate Potassium quantif ication in these patients send serum separator tube (gold top) for subsequent determinations. ??Contact the Clinical Chemistry Laboratory if there are any qu estions. Chloride 101 98 - 107 mmol/L [facility] CO2 25 22 - 31 mmol/L [facility] Anion Gap 13 5 - 15 mmol/L [facility] LABORATORY Calcium 9.6 8.5 - 10.5 mg/dL [facility] Estimated GFR 137 >=60 mL/min/1.73 m?? [facility] Comment: This patient's estimated [...] Organization Address City/State/ZIP [place] [address] (ABNORMAL) Differential, Automated (03/22/2022 4:15 AM EDT) [facility] gist Method Time Signature Neutrophils % 63.3 % [facility] Neutr Abs (ANC) 5.68 1.70 - [facility] 6.10 [facility] x10(3)/[facility] LABORATORY Lymphocytes % 17.7 % [facility] Lymphocytes Abs 1.6 0.9 - 3.2 [facility] x10(3)/[facility] LABORATORY Monocytes % 12.3 % [facility] Monocyte Abs 1.1 (H) 0.3 - 0.9 [facility] x10(3)/[facility] LABORATORY Eosinophils % 4.3 % [facility] Eosinophils Abs 0.4 0.0 - 0.4 [facility] x10(3)/[facility] LABORATORY Basophils % 0.7 % [facility] Basophils Abs 0.1 0.0 - 0.1 [facility] x10(3)/[facility] LABORATORY Immature Gran % 1.70 % [facility] Comment: Immature granulocytes(IG's)percentage an d absolute count will include metamyelocytes, myelocytes, and promyelo cytes. Blood smears from CBCs yielding IG's will be scanned manually for concor dance. If this scan disagrees with the automated IG or if promyelocytes are not ed, a manual differential will be performed. Gemini Gran Abs 0.15 (H) 0.00 - 0.04 x10(3)/[facility] LABORATORY Specimen Anatomical Collection Method Collection Time Receive d Time (Source) Location / / Volume Laterality Blood 03/22/2022 4:15 AM 4:35 EDT AM EDT Resulting Agency Comment Spec In Lab Batsheva Hill MD HEMATOLOGY ORDERABLES Performing Organization Address City/State/ZIP [place] [address] (ABNORMAL) Hemogram (03/22/2022 4:15 AM EDT) Analysis Performed At Patho logist Time Signature WBC 9.0 4.0 - 9.5 [facility] x10(3)/[facility] LABORATORY RBC 3.20 (L) 4.58 - [facility] 5.54 [facility] x10(6)/[facility] LABORATORY Hemoglobin 9.5 (L) 13.7 - [facility] 16.5 g/dL [facility] LABORATORY Hematocrit 28.0 (L) 40.5 - [facility] 48.5 % [facility] LABORATORY MCV 87.5 82.9 - [facility] 93.1 [facility] LABORATORY MCH 29.7 27.5 - [facility] 32.1 pg [facility] LABORATORY MCHC 33.9 32.0 - [facility] [place] 35.7 g/dL [facility] LABORATORY Platelets 248 145 - 357 [facility] x10(3)/[facility] LABORATORY RDWSD 47.8 (H) 36.0 - [facility] 45.0 [facility] LABORATORY RDWCV 14.9 (H) 11.4 - [facility] 13.8 % [facility] LABORATORY MPV 8.8 7.6 - 12.9 [facility] LABORATORY nRBC % Auto 0.0 % [facility] nRBC Abs Auto 0.000 0.000 - [facility] 0.000 [facility] x10(3)/[facility] LABORATORY Specimen Anatomical Collection Method Collection Time Receive d Time (Source) Location / / Volume Laterality Blood 03/22/2022 4:15 AM 4:35 EDT AM EDT Resulting Agency Comment Spec In Lab Batsheva Hill MD HEMATOLOGY ORDERABLES Performing Organization Address City/State/ZIP Code Phon e Number [place] [id number] (ABNORMAL) Basic Metabolic Panel (non-fasting) (03/22/2022 4:15 AM EDT) P athologist Signature Glucose Lvl 98 65 - 199 [facility] mg/dL [facility] LAB[facility] Comment: Diabetes: >=200 mg/dL plus symp toms BUN 16 10 - 20 mg/dL [facility] LABORATORY Creatinine 0.52 (L) 0.80 - 1.50 mg/dL [facility] Sodium 137 135 - 145 mmol/L [facility] Potassium 4.0 3.5 - 5.0 mmol/L [facility] Comment: Please note: ??Patients with WBC >100,00 0 may have falsely elevated Potassium levels. ??For accurate Potassium quantif ication in these patients send serum separator tube (gold top) for subsequent determinations. ??Contact the Clinical Chemistry Laboratory if there are any qu estions. Chloride 100 98 - 107 mmol/L [facility] CO2 24 22 - 31 mmol/L [facility] Anion Gap 13 5 - 15 mmol/L [facility] LABORATORY Calcium 9.6 8.5 - 10.5 mg/dL [facility] Estimated GFR 139 >=60 mL/min/1.73 m?? [facility] Comment: This patient's estimated [...] / Volume Laterality Blood 03/22/2022 4:15 AM 2 4:35 EDT AM EDT Resulting Agency Comment Spec In Lab Jeanette Chatterjee MD CHEMISTRY ORDERABLES Performing Organization Address City/State/ZIP [place] [address] (ABNORMAL) Basic Metabolic Panel (non-fasting) (03/20/2022 12:27 PM EDT) P athologist Signature Glucose Lvl 94 65 - 199 [facility] mg/dL [facility] Comment: Diabetes: >=200 mg/dL plus symp toms BUN 13 10 - 20 mg/dL [facility] LABORATORY Creatinine 0.67 (L) 0.80 - 1.50 mg/dL [facility] LAB[facility] Sodium 140 135 - 145 mmol/L [facility] Potassium 4.3 3.5 - 5.0 mmol/L [facility] Comment: Please note: ??Patients with WBC >100,00 0 may have falsely elevated Potassium levels. ??For accurate Potassium quantif ication in these patients send serum separator tube (gold top) for subsequent determinations. ??Contact the Clinical Chemistry Laboratory if there are any qu estions. Chloride 104 98 - 107 mmol/L [facility] CO2 23 22 - 31 mmol/L [facility] Anion Gap 13 5 - 15 mmol/L [facility] LABOR[facility]ORY Calcium 9.6 8.5 - 10.5 mg/dL [facility] Estimated GFR 129 >=60 mL/min/1.73 m?? [facility] Comment: This patient's estimated [...] Organization Address City/State/ZIP [place] [address] Green Tube HOLD (03/20/2022 12:27 PM EDT) P athologist Signature Green Hold Sample in [facility]. [facility] Comment: Collection date/time has been [...] Hidalgo MD CHEMISTRY ORDERABLES Performing Organization Address City/[facility]/ZIP Code Phon e Number [address] Phosphorus (03/20/2022 12:00 PM EDT) athologist Signature Phosphorus 3.8 2.5 - 4.5 [facility] mg/dL [facility] LAB[facility] Specimen Anatomical Collection Method Collection Time Receive d Time (Source) Location / / Volume Laterality Blood 03/20/2022 12:00 03/20/2022 PM EDT 12:26 PM EDT Resulting Agency Comment Spec In Lab Jeanette Chatterjee MD CHEMISTRY ORDERABLES Performing Organization Address City/[facility]/ZIP Code Phon e Number [address] Magnesium (03/20/2022 12:00 PM EDT) P athologist Signature Magnesium 0.75 0.69 - 1.07 [facility] mmol/L [facility] LABOR[facility]ORY Specimen Anatomical Collection Method Collection Time Receive d Time (Source) Location / / Volume Laterality Blood 03/20/2022 12:00 03/20/2022 PM EDT 12:26 PM EDT Resulting Agency Comment Spec In Lab Jeanette Chatterjee MD CHEMISTRY ORDERABLES Performing Organization Address City/State/[place] [address] Vancomycin, trough (03/14/2022 3:09 PM EDT) P athologist Signature Vanc Trough 16.1 mg/L [facility] Comment: Therapeutic range for [...] Organization Address City/State/Z[place] [address] (ABNORMAL) Differential, Automated (03/13/2022 6:02 AM EDT) athologist Signature Neutrophils % 68.2 % [facility] Neutr Abs (ANC) 5.47 1.70 - [facility] 6.10 [facility] x10(3)/[facility] LABORATORY Lymphocytes % 17.0 % [facility] Lymphocytes Abs 1.4 0.9 - 3.2 [facility] x10(3)/[facility] LABORATORY Monocytes % 8.0 % [facility] Monocyte Abs 0.6 0.3 - 0.9 [facility] x10(3)/[facility] LABORATORY Eosinophils % 4.2 % [facility] Eosinophils Abs 0.3 0.0 - 0.4 [facility] x10(3)/[facility] LABORATORY Basophils % 0.5 % [facility] Basophils Abs 0.0 0.0 - 0.1 [facility] x10(3)/[facility] LABORATORY Immature Gran % 2.10 % [facility] Comment: Immature granulocytes(IG's)percentage an d absolute count will include metamyelocytes, myelocytes, and promyelo cytes. Blood smears from CBCs yielding IG's will be scanned manually for concor dance. If this scan disagrees with the automated IG or if promyelocytes are not ed, a manual differential will be performed. Gemini Gran Abs 0.17 (H) 0.00 - 0.04 x10(3)/[facility] LABORATORY Specimen Anatomical Collection Method Collection Time Receive d Time (Source) Location / / Volume Laterality Blood 03/13/2022 6:02 AM 2 6:17 EDT AM EDT Resulting Agency Comment Spec In Lab Nancy Chahal MD HEMATOLOGY ORDERABLES Performing Organization Address City/[facility]/ZIP [place] [address] (ABNORMAL) Hemogram (03/13/2022 6:02 AM EDT) Analysis Performed At Patho logist Time Signature WBC 8.0 4.0 - 9.5 [facility] x10(3)/[facility] LABORATORY RBC 3.12 (L) 4.58 - [facility] 5.54 [facility] x10(6)/[facility] LABORATORY Hemoglobin 9.1 (L) 13.7 - [facility] g/dL [facility] LABORATORY Hematocrit 27.5 (L) 40.5 - [facility] 48.5 % [facility] LABORATORY MCV 88.1 82.9 - [facility] 93.1 [facility] LABORATORY MCH 29.2 27.5 - [facility] 32.1 pg [facility] LABORATORY MCHC 33.1 32.0 - [facility] 35.7 g/dL [facility] LABORATORY Platelets 254 145 - 357 [facility] x10(3)/[facility] LABORATORY RDWSD 49.4 (H) 36.0 - [facility] 45.0 [facility] LABORATORY RDWCV 15.5 (H) 11.4 - [facility] 13.8 % [facility] LABORATORY MPV 8.4 7.6 - 12.9 [facility] LABORATORY nRBC % Auto 0.0 % [facility] LABORATORY nRBC Abs Auto 0.000 0.000 - [facility] 0.000 [facility] x10(3)/[facility] LABORATORY Specimen Anatomical Collection Method Collection Time Receive d Time (Source) Location / / Volume Laterality Blood 03/13/2022 6:02 AM 2 6:17 EDT AM EDT Resulting Agency Comment Spec In Lab Nancy Chahal MD HEMATOLOGY ORDERABLES Performing Organization Address City/State/[place] [address] (ABNORMAL) Phosphorus (03/13/2022 6:02 AM EDT) athologist Signature Phosphorus 4.9 (H) 2.5 - 4.5 [facility] mg/dL [facility] LABORATORY Specimen Anatomical Collection Method Collection Time Receive d Time (Source) Location / / Volume Laterality Blood 03/13/2022 6:02 AM 2 6:17 EDT AM EDT Resulting Agency Comment Spec In Lab Floridalma Sandoval MD CHEMISTRY ORDERABLES Performing Organization Address City/[facility]/ZIP Code Phon e Number [address] Magnesium (03/13/2022 6:02 AM EDT) athologist Signature Magnesium 0.70 0.69 - 1.07 [facility] mmol/L [facility] LABORATORY Specimen Anatomical Collection Method Collection Time Receive d Time (Source) Location / / Volume Laterality Blood 03/13/2022 6:02 AM 2 6:17 EDT AM EDT Resulting Agency Comment Spec In Lab Floridalma Sandoval MD CHEMISTRY ORDERABLES Performing Organization Address City/[facility]/[place] [address] (ABNORMAL) Basic Metabolic Panel (non-fasting) (03/13/2022 6:02 AM EDT) athologist Signature Glucose Lvl 100 65 - 199 [facility] mg/dL [facility] LABORATORY Comment: Diabetes: >=200 mg/dL plus symp toms BUN 12 10 - 20 mg/dL [facility] LABORATORY Creatinine 0.65 (L) 0.80 - 1.50 mg/dL [facility] LABORATORY Sodium 139 135 - 145 mmol/L [facility] LABORATORY Potassium 3.9 3.5 - 5.0 mmol/L [facility] LABORATORY Comment: Please note: ??Patients with WBC >100,00 0 may have falsely elevated Potassium levels. ??For accurate Potassium quantif ication in these patients send serum separator tube (gold top) for subsequent determinations. ??Contact the Clinical Chemistry Laboratory if there are any qu estions. Chloride 101 98 - 107 mmol/L [facility] LABORATORY CO2 25 22 - 31 mmol/L [facility] LABORATORY Anion Gap 13 5 - 15 mmol/L [facility] LABORATORY Calcium 9.6 8.5 - 10.5 mg/dL [facility] LABORATORY Estimated GFR 130 >=60 mL/min/1.73 m?? [facility] LABORATORY Comment: This patient's estimated [...] Organization Address City/State/ZIP [place] [address] (ABNORMAL) Differential, Automated (03/10/2022 5:45 AM EDT) [facility] gist Method Time Signature Neutrophils % 58.5 % [facility] LABORATORY Neutr Abs (ANC) 4.21 1.70 - [facility] 6.10 [facility] x10(3)/[facility] LABORATORY Lymphocytes % 17.8 % [facility] LABORATORY Lymphocytes Abs 1.3 0.9 - 3.2 [facility] x10(3)/[facility] LABORATORY Monocytes % 13.5 % [facility] LABORATORY Monocyte Abs 1.0 (H) 0.3 - 0.9 [facility] x10(3)/[facility] LABORATORY Eosinophils % 5.3 % [facility] LABORATORY Eosinophils Abs 0.4 0.0 - 0.4 [facility] x10(3)/[facility] LABORATORY Basophils % 0.6 % [facility] LABORATORY Basophils Abs 0.0 0.0 - 0.1 [facility] x10(3)/[facility] LABORATORY Immature Gran % 4.30 % [facility] LABORATORY Comment: Immature granulocytes(IG's)percentage an d absolute count will include metamyelocytes, myelocytes, and promyelo cytes. Blood smears from CBCs yielding IG's will be scanned manually for concor dance. If this scan disagrees with the automated IG or if promyelocytes are not ed, a manual differential will be performed. Gemini Gran Abs 0.31 (H) 0.00 - 0.04 x10(3)/[facility] LABORATORY Specimen Anatomical Collection Method Collection Time Receive d Time (Source) Location / / Volume Laterality Blood 03/10/2022 5:45 AM 6:05 EDT AM EDT Resulting Agency Comment Spec In Lab Nancy Chahal MD HEMATOLOGY ORDERABLES Performing Organization Address City/State/ZIP [place] [address] (ABNORMAL) Hemogram (03/10/2022 5:45 AM EDT) Analysis Performed At Patho logist Time Signature WBC 7.2 4.0 - 9.5 [facility] x10(3)/[facility] LABORATORY RBC 3.13 (L) 4.58 - [facility] 5.54 [facility] x10(6)/[facility] LABORATORY Hemoglobin 9.1 (L) 13.7 - [facility] 16.5 g/dL [facility] LABORATORY Hematocrit 27.3 (L) 40.5 - [facility] 48.5 % [facility] LABORATORY MCV 87.2 82.9 - [facility] 93.1 [facility] LABORATORY MCH 29.1 27.5 - [facility] 32.1 pg [facility] MCHC 33.3 32.0 - [facility] 35.7 g/dL [facility] LABORATORY Platelets 256 145 - 357 [facility] x10(3)/[facility] LABORATORY RDWSD 50.6 (H) 36.0 - [facility] 45.0 [facility] LABORATORY RDWCV 15.9 (H) 11.4 - [facility] 13.8 % [facility] LABORATORY MPV 8.5 7.6 - 12.9 [facility] LABORATORY nRBC % Auto 0.0 % [facility] LABORATORY nRBC Abs Auto 0.000 0.000 - [facility] 0.000 [facility] x10(3)/[facility] LABORATORY Specimen Anatomical Collection Method Collection Time Receive d Time (Source) Location / / Volume Laterality Blood 03/10/2022 5:45 AM 2 6:05 EDT AM EDT Resulting Agency Comment Spec In Lab Nancy Chahal MD HEMATOLOGY ORDERABLES Performing Organization Address City/State/ZIP Code Phon e Number [address] (ABNORMAL) Phosphorus (03/10/2022 5:45 AM EDT) P athologist Signature Phosphorus 4.6 (H) 2.5 - 4.5 [facility] mg/dL [facility] LABORATORY Specimen Anatomical Collection Method Collection Time Receive d Time (Source) Location / / Volume Laterality Blood 03/10/2022 5:45 AM 2 6:05 EDT AM EDT Resulting Agency Comment Spec In Lab Floridalma Sandoval MD CHEMISTRY ORDERABLES Performing Organization Address City/State/[place] [address] Magnesium (03/10/2022 5:45 AM EDT) P athologist Signature Magnesium 0.77 0.69 - 1.07 [facility] mmol/L [facility] LABORATORY Specimen Anatomical Collection Method Collection Time Receive d Time (Source) Location / / Volume Laterality Blood 03/10/2022 5:45 AM 2 6:05 EDT AM EDT Resulting Agency Comment Spec In Lab Floridalma Sandoval MD CHEMISTRY ORDERABLES Performing Organization Address City/State/ZIP [place] [address] Basic Metabolic Panel (non-fasting) (03/10/2022 5:45 AM EDT) P athologist Signature Glucose Lvl 95 65 - 199 [facility] mg/dL [facility] LABORATORY Comment: Diabetes: >=200 mg/dL plus symp toms BUN 20 10 - 20 mg/dL [facility] LABORATORY Creatinine 0.85 0.80 - 1.50 mg/dL [facility] LABORATORY Sodium 142 135 - 145 mmol/L [facility] LABORATORY Potassium 4.0 3.5 - 5.0 mmol/L [facility] LABORATORY Comment: Please note: ??Patients with WBC >100,00 0 may have falsely elevated Potassium levels. ??For accurate Potassium quantif ication in these patients send serum separator tube (gold top) for subsequent determinations. ??Contact the Clinical Chemistry Laboratory if there are any qu estions. Chloride 103 98 - 107 mmol/L [facility] LABORATORY CO2 25 22 - 31 mmol/L [facility] LABORATORY Anion Gap 14 5 - 15 mmol/L [facility] LABORATORY Calcium 9.1 8.5 - 10.5 mg/dL [facility] LABORATORY Estimated GFR 120 >=60 mL/min/1.73 m?? [facility] LABORATORY Comment: This patient's estimated [...] Sandoval MD CHEMISTRY ORDERABLES Performing Organization Address City/[facility]/ZIP Code Phon e Number [address] Anaerobic Culture (03/05/2022 11:05 AM EDT) [employer] Method Time Signature Anaerobic No anaerobic [facility] Culture organisms [facility] LABORATORY Specimen Anatomical Collection Method Collection Time Receive d Time (Source) Location / / Volume Laterality Fluid 03/05/2022 11:05 03/05/2022 AM EDT 12:02 PM EDT Comment: Fluid from left thigh Resulting Agency Comment Spec In Lab Elaine Dos Santos MD MICROBIOLOGY - GENERAL ORDER JT Performing Organization Address City/[facility]/[place] [address] (ABNORMAL) Body Fluid Culture, Aerobic (03/05/2022 11:05 AM EDT) Component Value Ref Test Analysis Performed At [employer] Range Method Time Signature Body Fluid Moderate Staphylococcus aureus, MRSA [facility] Culture Many Pseudomonas aeruginosa [facility] LABORATORY Gram Stain Cytocentrifuge Gram Stain performed [facility] Neutrophils seen [facility] Rare Gram Positive Cocci seen [facility] Rare Gram Negative Rods seen [facility] () LABORATORY Organism Staphylococcus [facility] aureus, MRSA (A) [facility] LABORATORY Organism Pseudomonas [facility] aeruginosa (A) [facility] LABORATORY Organism Gram Positive [facility] Cocci (A) [facility] LABORATORY Organism Gram Negative [facility] Rods (A) [facility] LABORATORY Specimen Anatomical Collection Method Collection Time [...] Comment: Gentamicin is not a ppropriate for [place]-therapy. Staphylococcus aureus, mrsa Linezolid VITEK 2 METHOD [...] Organization Address City/State/ZIP [place] [address] (ABNORMAL) Basic Metabolic Panel (non-fasting) (03/04/2022 12:54 AM EDT) P athologist Signature Glucose Lvl 97 65 - 199 [facility] mg/dL [facility] LABORATORY Comment: Diabetes: >=200 mg/dL plus symp toms BUN 23 (H) 10 - 20 mg/dL [facility] LABORATORY Creatinine 1.23 0.80 - 1.50 mg/dL [facility] LABORATORY Sodium 141 135 - 145 mmol/L [facility] LABORATORY Potassium 3.7 3.5 - 5.0 mmol/L [facility] LABORATORY Comment: Please note: ??Patients with WBC >100,00 0 may have falsely elevated Potassium levels. ??For accurate Potassium quantif ication in these patients send serum separator tube (gold top) for subsequent determinations. ??Contact the Clinical Chemistry Laboratory if there are any qu estions. Chloride 101 98 - 107 mmol/L [facility] LABORATORY CO2 25 22 - 31 mmol/L [facility] LABORATORY Anion Gap 15 5 - 15 mmol/L [facility] LABORATORY Calcium 8.7 8.5 - 10.5 mg/dL [facility] LABORATORY Estimated GFR 81 >=60 mL/min/1.73 m?? [facility] LABORATORY Comment: This patient's estimated [...] Organization Address City/State/Z[place] [address] PICC Line: Contact Vascular Access Page [phone] Extremity to exclude: DO NOT use LEFT [...] the planned procedu re. Hand Hygiene: The glass inserter did perform hand hygiene pr ior to line insertion. Catheter type: PICC Lot number: [id number] Procedure Technique: Skin was prepped with chlorhexidine. [...] who have questions please contact the health care associate that requested your imaging first. ? Narrative 03/03/2022 2:49 PM EDT EXAMINATION: XR [...] ho have questions please contact the health care associate that requested your imaging first. Jayme Armstrong MD IMG FLUORO ORDERABLES (ABNORMAL) Differential, Automated (03/03/2022 4:34 AM EDT) [facility] Method Time Signature Neutrophils % 49.2 % [facility] LABORATORY Neutr Abs (ANC) 3.20 1.70 - [facility] 6.10 [facility] x10(3)/[facility] LABORATORY Lymphocytes % 23.5 % [facility] LABORATORY Lymphocytes Abs 1.5 0.9 - 3.2 [facility] x10(3)/[facility] LABORATORY Monocytes % 12.9 % [facility] LABORATORY Monocyte Abs 0.8 0.3 - 0.9 [facility] x10(3)/[facility] LABORATORY Eosinophils % 10.4 % [facility] LABORATORY Eosinophils Abs 0.7 (H) 0.0 - 0.4 [facility] x10(3)/[facility] LABORATORY Basophils % 0.8 % [facility] LABORATORY Basophils Abs 0.0 0.0 - 0.1 [facility] x10(3)/[facility] LABORATORY Immature Gran % 3.20 % [facility] LABORATORY Comment: Immature granulocytes(IG's)percentage an d absolute count will include metamyelocytes, myelocytes, and promyelo cytes. Blood smears from CBCs yielding IG's will be scanned manually for concor dance. If this scan disagrees with the automated IG or if promyelocytes are not ed, a manual differential will be performed. Gemini Gran Abs 0.21 (H) 0.00 - 0.04 x10(3)/[facility] LABORATORY Specimen Anatomical Collection Method Collection Time Receive d Time (Source) Location / / Volume Laterality Blood 03/03/2022 4:34 AM 2 4:42 EDT AM EDT Resulting Agency Comment Spec In Lab Collette Valente MD HEMATOLOGY ORDERABLES Performing Organization Address City/State/ZIP Code Phon e Number [address] (ABNORMAL) Hemogram (03/03/2022 4:34 AM EDT) Analysis Performed At Patho logist Time Signature WBC 6.5 4.0 - 9.5 [facility] x[facility](3[facility] LABORATORY RBC 3.12 (L) 4.58 - [facility] 5.54 [facility] x10(6)/[facility] LABORATORY Hemoglobin 9.1 (L) 13.7 - [facility] 16.5 g/dL [facility] LABORATORY Hematocrit 26.8 (L) 40.5 - [facility] 48.5 % [facility] LABORATORY MCV 85.9 82.9 - [facility] 93.1 [facility] LABORATORY MCH 29.2 27.5 - [facility] 32.1 pg [facility] LABORATORY MCHC 34.0 32.0 - [facility] 35.7 g/dL [facility] LABORATORY Platelets 276 145 - 357 [facility] x10(3)/[facility] LABORATORY RDWSD 50.6 (H) 36.0 - [facility] 45.0 [facility] LABORATORY RDWCV 16.1 (H) 11.4 - [facility] 13.8 % [facility] LABORATORY MPV 7.8 7.6 - 12.9 [facility] nRBC % Auto 0.0 % [facility] LABORATORY nRBC Abs Auto 0.000 0.000 - [facility] 0.000 [facility] x10(3)/[facility] LABORATORY Specimen Anatomical Collection Method Collection Time Receive d Time (Source) Location / / Volume Laterality Blood 03/03/2022 4:34 AM 2 4:42 EDT AM EDT Resulting Agency Comment Spec In Lab Collette Valente MD HEMATOLOGY ORDERABLES Performing Organization Address City/State/ZIP Code Phon e Number [address] Magnesium (03/03/2022 4:34 AM EDT) athologist Signature Magnesium 0.80 0.69 - 1.07 [facility] mmol/L [facility] LABORATORY Specimen Anatomical Collection Method Collection Time Receive d Time (Source) Location / / Volume Laterality Blood 03/03/2022 4:34 AM 2 4:42 EDT AM EDT Resulting Agency Comment Spec In Lab Jayme Armstrong MD CHEMISTRY ORDERABLES Performing Organization Address City/State/ZIP Code Phon e Number [address] (ABNORMAL) Phosphorus (03/03/2022 4:34 AM EDT) athologist Signature Phosphorus 5.1 (H) 2.5 - 4.5 [facility] mg/dL [facility] LABORATORY Specimen Anatomical Collection Method Collection Time Receive d Time (Source) Location / / Volume Laterality Blood 03/03/2022 4:34 AM 2 4:42 EDT AM EDT Resulting Agency Comment Spec In Lab Jayme Armstrong MD CHEMISTRY ORDERABLES Performing Organization Address City/[facility]/ZIP Code Phon e Number [address] (ABNORMAL) Basic Metabolic Panel (non-fasting) (03/03/2022 4:34 AM EDT) athologist Signature Glucose Lvl 105 65 - 199 [facility] mg/dL [facility] LABORATORY Comment: Diabetes: >=200 mg/dL plus symp toms BUN 28 (H) 10 - 20 mg/dL [facility] LABORATORY Creatinine 1.27 0.80 - 1.50 mg/dL [facility] LABORATORY Sodium 142 135 - 145 mmol/L [facility] LABORATORY Potassium 3.8 3.5 - 5.0 mmol/L [facility] LABORATORY Comment: Please note: ??Patients with WBC >100,00 0 may have falsely elevated Potassium levels. ??For accurate Potassium quantif ication in these patients send serum separator tube (gold top) for subsequent determinations. ??Contact the Clinical Chemistry Laboratory if there are any qu estions. Chloride 104 98 - 107 mmol/L [facility] LABORATORY CO2 25 22 - 31 mmol/L [facility] LABORATORY Anion Gap 13 5 - 15 mmol/L [facility] LABORATORY Calcium 9.0 8.5 - 10.5 mg/dL [facility] LABORATORY Estimated GFR 78 >=60 mL/min/1.73 m?? [facility] LABORATORY Comment: This patient's estimated [...] Organization Address City/State/[place] [address] Albumin Level (03/02/2022 4:23 AM EDT) P athologist Signature Albumin 3.3 3.2 - 5.2 [facility] g/dL [facility] LABORATORY Specimen Anatomical Collection Method Collection Time Receive d Time (Source) Location / / Volume Laterality Blood Venous Draw / 03/02/2022 4:23 AM 03/02/20 4:53 Unknown EDT AM EDT Resulting Agency Comment Spec In Lab Nancy Chahal MD CHEMISTRY ORDERABLES Performing Organization Address City/State/[place] [address] (ABNORMAL) Basic Metabolic Panel (non-fasting) (03/02/2022 4:23 AM EDT) P athologist Signature Glucose Lvl 99 65 - 199 [facility] mg/dL [facility] LABORATORY Comment: Diabetes: >=200 mg/dL plus symp toms BUN 32 (H) 10 - 20 mg/dL [facility] LABORATORY Creatinine 1.33 0.80 - 1.50 mg/dL [facility] LABORATORY Sodium 138 135 - 145 mmol/L [facility] LABORATORY Potassium 4.1 3.5 - 5.0 mmol/L [facility] LABORATORY Comment: Please note: ??Patients with WBC >100,00 0 may have falsely elevated Potassium levels. ??For accurate Potassium quantif ication in these patients send serum separator tube (gold top) for subsequent determinations. ??Contact the Clinical Chemistry Laboratory if there are any qu estions. Chloride 100 98 - 107 mmol/L [facility] LABORATORY CO2 25 22 - 31 mmol/L [facility] LABORATORY Anion Gap 13 5 - 15 mmol/L [facility] LABORATORY Calcium 9.0 8.5 - 10.5 mg/dL [facility] LABORATORY Estimated GFR 74 >=60 mL/min/1.73 m?? [facility] LABORATORY Comment: This patient's estimated [...] Armstrong MD CHEMISTRY ORDERABLES Performing Organization Address City/[facility]/ZIP Code Phon e Number [address] (ABNORMAL) Differential, Automated (03/01/2022 2:00 AM EDT) [facility] Method Time Signature Neutrophils % 65.1 % [facility] LABORATORY Neutr Abs (ANC) 6.08 1.70 - [facility] 6.10 [facility] x10(3)/[facility] LABORATORY Lymphocytes % 15.0 % [facility] LABORATORY Lymphocytes Abs 1.4 0.9 - 3.2 [facility] x10(3)/[facility] LABORATORY Monocytes % 12.0 % [facility] LABORATORY Monocyte Abs 1.1 (H) 0.3 - 0.9 [facility] x10(3)/[facility] LABORATORY Eosinophils % 5.4 % [facility] LABORATORY Eosinophils Abs 0.5 (H) 0.0 - 0.4 [facility] x10(3)/[facility] LABORATORY Basophils % 0.6 % [facility] LABORATORY Basophils Abs 0.1 0.0 - 0.1 [facility] x10(3)/[facility] LABORATORY Immature Gran % 1.90 % [facility] LABORATORY Comment: Immature granulocytes(IG's)percentage an d absolute count will include metamyelocytes, myelocytes, and promyelo cytes. Blood smears from CBCs yielding IG's will be scanned manually for concor dance. If this scan disagrees with the automated IG or if promyelocytes are not ed, a manual differential will be performed. Gemini Gran Abs 0.18 (H) 0.00 - 0.04 x10(3)/[facility] LABORATORY Specimen Anatomical Collection Method Collection Time Receive d Time (Source) Location / / Volume Laterality Blood 03/01/2022 2:00 AM 2:03 EDT AM EDT Resulting Agency Comment Spec In Lab Veto Hiadlgo MD HEMATOLOGY ORDERABLES Performing Organization Address City/[facility]/ZIP Code Phon e Number [place] [id number] HOSPITAL LAB[address]ORY Drive (ABNORMAL) Hemogram (03/01/2022 2:00 AM EDT) Analysis Performed At Patho logist Time Signature WBC 9.3 4.0 - 9.5 [facility] x[facility](3[facility] LABORATORY RBC 2.92 (L) 4.58 - [facility] [place] 5.54 [facility] x10(6)/[facility] LABORATORY Hemoglobin 8.5 (L) 13.7 - [facility] 16.5 g/dL [facility] LABORATORY Hematocrit 25.5 (L) 40.5 - [facility] [place] 48.5 % [facility] LABORATORY MCV 87.3 82.9 - [facility] 93.1 [facility] LABORATORY MCH 29.1 27.5 - [facility] 32.1 pg [facility] LABORATORY MCHC 33.3 32.0 - [facility] 35.7 g/dL [facility] LABORATORY Platelets 288 145 - 357 [facility] x10(3)/[facility] LABORATORY RDWSD 52.2 (H) 36.0 - [facility] 45.0 [facility] LABORATORY RDWCV 16.4 (H) 11.4 - [facility] 13.8 % [facility] LABORATORY MPV 8.0 7.6 - 12.9 [facility] LABORATORY nRBC % Auto 0.0 % [facility] LABORATORY nRBC Abs Auto 0.000 0.000 - JOS[facility] MANDO 0.000 [facility] x10(3)/[facility] LABORATORY Specimen Anatomical Collection Method Collection Time Receive d Time (Source) Location / / Volume Laterality Blood 03/01/2022 2:00 AM 2:03 EDT AM EDT Resulting Agency Comment Spec In Lab Veto Hidalgo MD HEMATOLOGY ORDERABLES Performing Organization Address City/State/ZIP [place] [address] Magnesium (03/01/2022 2:00 AM EDT) P athologist Signature Magnesium 0.77 0.69 - 1.07 [facility] mmol/L [facility] LABORATORY Specimen Anatomical Collection Method Collection Time Receive d Time (Source) Location / / Volume Laterality Blood 03/01/2022 2:00 AM 2 2:03 EDT AM EDT Resulting Agency Comment Spec In Lab Jayme Armstrong MD CHEMISTRY ORDERABLES Performing Organization Address City/State/ZIP Code Phon e Number [address] (ABNORMAL) Phosphorus (03/01/2022 2:00 AM EDT) athologist Signature Phosphorus 4.8 (H) 2.5 - 4.5 [facility] mg/dL [facility] LABORATORY Specimen Anatomical Collection Method Collection Time Receive d Time (Source) Location / / Volume Laterality Blood 03/01/2022 2:00 AM 2 2:03 EDT AM EDT Resulting Agency Comment Spec In Lab Jayme Armstrong MD CHEMISTRY ORDERABLES Performing Organization Address City/[facility] [place] [address] (ABNORMAL) Basic Metabolic Panel (non-fasting) (03/01/2022 2:00 AM EDT) athologist Signature Glucose Lvl 106 65 - 199 [facility] mg/dL [facility] LABORATORY Comment: Diabetes: >=200 mg/dL plus symp toms BUN 38 (H) 10 - 20 mg/dL [facility] LABORATORY Creatinine 1.73 (H) 0.80 - 1.50 mg/dL [facility] LABORATORY Sodium 140 135 - 145 mmol/L [facility] LABORATORY Potassium 4.3 3.5 - 5.0 mmol/L [facility] LABORATORY Comment: Please note: ??Patients with WBC >100,00 0 may have falsely elevated Potassium levels. ??For accurate Potassium quantif ication in these patients send serum separator tube (gold top) for subsequent determinations. ??Contact the Clinical Chemistry Laboratory if there are any qu estions. Chloride 102 98 - 107 mmol/L [facility] LABORATORY CO2 24 22 - 31 mmol/L [facility] LABORATORY Anion Gap 14 5 - 15 mmol/L [facility] LABORATORY Calcium 9.2 8.5 - 10.5 mg/dL [facility] LABORATORY Estimated GFR 54 (L) >=60 mL/min/1.73 m?? [facility] LABORATORY Comment: This patient's estimated [...] Organization Address City/State/[place] [address] (ABNORMAL) Ferritin (03/01/2022 2:00 AM EDT) P athologist Signature Ferritin 693 (H) 30 - 400 [facility] ng/mL [facility] LABORATORY Comment: Pediatric reference ranges not verified at [facility], interpret with caution. Reference ranges for females [...] Organization Address City/State/[place] [address] (ABNORMAL) Iron and TIBC (03/01/2022 2:00 AM EDT) Analysis Performed At Patho logist Time Signature Iron 21 (L) 45 - 160 [facility] mcg/dL [facility] LABORATORY TIBC 185 (L) 250 - 450 [facility] mcg/dL [facility] LABORATORY Iron Saturation 11 (L) 20 - 50 % [facility] LABORATORY Specimen Anatomical Collection Method Collection Time Receive d Time (Source) Location / / Volume Laterality Blood 03/01/2022 2:00 AM 2:03 EDT AM EDT Resulting Agency Comment Spec In Lab Allison Kelly MD CHEMISTRY ORDERABLES Performing Organization Address City/State/ZIP [place] [address] (ABNORMAL) Basic Metabolic Panel (non-fasting) (02/28/2022 3:43 AM EDT) P athologist Signature Glucose Lvl 110 65 - 199 [facility] mg/dL [facility] LABORATORY Comment: Diabetes: >=200 mg/dL plus symp toms BUN 44 (H) 10 - 20 mg/dL [facility] LABORATORY Creatinine 1.92 (H) 0.80 - 1.50 mg/dL [facility] LABORATORY Sodium 138 135 - 145 mmol/L [facility] LABORATORY Potassium 4.3 3.5 - 5.0 mmol/L [facility] LABORATORY Comment: Please note: ??Patients with WBC >100,00 0 may have falsely elevated Potassium levels. ??For accurate Potassium quantif ication in these patients send serum separator tube (gold top) for subsequent determinations. ??Contact the Clinical Chemistry Laboratory if there are any qu estions. Chloride 103 98 - 107 mmol/L [facility] LABORATORY CO2 24 22 - 31 mmol/L [facility] LABORATORY Anion Gap 11 5 - 15 mmol/L [facility] LABORATORY Calcium 9.1 8.5 - 10.5 mg/dL [facility] LABORATORY Estimated GFR 47 (L) >=60 mL/min/1.73 m?? [facility] LABORATORY Comment: This patient's estimated [...] Organization Address City/State/ZIP Code Phon e Number [place] [id number] HOSPITAL LAB[address]ORY Drive (ABNORMAL) Differential, Automated (02/27/2022 4:36 AM EDT) athologist Signature Neutrophils % 55.6 % [facility] LABORATORY Neutr Abs (ANC) 3.68 1.70 - [facility] 6.10 [facility] x10(3)/[facility] LABORATORY Lymphocytes % 21.3 % [facility] LABORATORY Lymphocytes Abs 1.4 0.9 - 3.2 [facility] x10(3)/[facility] LABORATORY Monocytes % 11.8 % [facility] LABORATORY Monocyte Abs 0.8 0.3 - 0.9 [facility] x10(3)/[facility] LABORATORY Eosinophils % 5.9 % [facility] LABORATORY Eosinophils Abs 0.4 0.0 - 0.4 [facility] x10(3)/[facility] LABORATORY Basophils % 0.9 % [facility] LABORATORY Basophils Abs 0.1 0.0 - 0.1 [facility] x10(3)/[facility] LABORATORY Immature Gran % 4.50 % [facility] LABORATORY Comment: Immature granulocytes(IG's)percentage an d absolute count will include metamyelocytes, myelocytes, and promyelo cytes. Blood smears from CBCs yielding IG's will be scanned manually for concor dance. If this scan disagrees with the automated IG or if promyelocytes are not ed, a manual differential will be performed. Gemini Gran Abs 0.30 (H) 0.00 - 0.04 x10(3)/[facility] LABORATORY Specimen Anatomical Collection Method Collection Time Receive d Time (Source) Location / / Volume Laterality Blood 02/27/2022 4:36 AM 4:48 EDT AM EDT Resulting Agency Comment Spec In Lab Veto Hidalgo MD HEMATOLOGY ORDERABLES Performing Organization Address City/State/ZIP [place] [address] (ABNORMAL) Hemogram (02/27/2022 4:36 AM EDT) Analysis Performed At Patho logist Time Signature WBC 6.6 4.0 - 9.5 [facility] x10(3)/[facility] LABORATORY RBC 2.74 (L) 4.58 - [facility] 5.54 [facility] x10(6)/[facility] LABORATORY Hemoglobin 8.0 (L) 13.7 - [facility] 16.5 g/dL [facility] LABORATORY Hematocrit 24.7 (L) 40.5 - [facility] 48.5 % [facility] LABORATORY MCV 90.1 82.9 - [facility] 93.1 [facility] LABORATORY MCH 29.2 27.5 - [facility] 32.1 pg [facility] LABORATORY MCHC 32.4 32.0 - [facility] 35.7 g/dL [facility] LABORATORY Platelets 267 145 - 357 [facility] x10(3)/[facility] LABORATORY RDWSD 56.6 (H) 36.0 - [facility] MANDO 45.0 [facility] LABORATORY RDWCV 17.2 (H) 11.4 - [facility] MANDO 13.8 % [facility] LABORATORY MPV 8.1 7.6 - 12.9 [facility] LABORATORY nRBC % Auto 0.0 % [facility] LABORATORY nRBC Abs Auto 0.000 0.000 - [facility] 0.000 [facility] x10(3)/[facility] LABORATORY Specimen Anatomical Collection Method Collection Time Receive d Time (Source) Location / / Volume Laterality Blood 02/27/2022 4:36 AM 2 4:48 EDT AM EDT Resulting Agency Comment Spec In Lab Veto Hidalgo MD HEMATOLOGY ORDERABLES Performing Organization Address City/[facility]/ZIP Code Phon e Number [address] Magnesium (02/27/2022 4:36 AM EDT) P athologist Signature Magnesium 0.74 0.69 - 1.07 [facility] mmol/L [facility] LABORATORY Specimen Anatomical Collection Method Collection Time Receive d Time (Source) Location / / Volume Laterality Blood 02/27/2022 4:36 AM 2 4:48 EDT AM EDT Resulting Agency Comment Spec In Lab Jayme Armstrong MD CHEMISTRY ORDERABLES Performing Organization Address City/[facility]/[place] [address] Phosphorus (02/27/2022 4:36 AM EDT) P athologist Signature Phosphorus 4.5 2.5 - 4.5 [facility] LABORATORY Specimen Anatomical Collection Method Collection Time Receive d Time (Source) Location / / Volume Laterality Blood 02/27/2022 4:36 AM 2 4:48 EDT AM EDT Resulting Agency Comment Spec In Lab Jayme Armstrong MD CHEMISTRY ORDERABLES Performing Organization Address City/[facility]/ZIP [facility] [place] [place] [address] (ABNORMAL) Basic Metabolic Panel (non-fasting) (02/27/2022 4:36 AM EDT) P athologist Signature Glucose Lvl 108 65 - 199 [facility] mg/dL [facility] LABORATORY Comment: Diabetes: >=200 mg/dL plus symp toms BUN 57 (H) 10 - 20 mg/dL [facility] LABORATORY Creatinine 2.29 (H) 0.80 - 1.50 mg/dL [facility] LABORATORY Sodium 142 135 - 145 mmol/L [facility] LABORATORY Potassium 4.6 3.5 - 5.0 mmol/L [facility] LABORATORY Comment: Please note: ??Patients with WBC >100,00 0 may have falsely elevated Potassium levels. ??For accurate Potassium quantif ication in these patients send serum separator tube (gold top) for subsequent determinations. ??Contact the Clinical Chemistry Laboratory if there are any qu estions. Chloride 105 98 - 107 mmol/L [facility] LABORATORY CO2 24 22 - 31 mmol/L [facility] LABORATORY Anion Gap 13 5 - 15 mmol/L [facility] LABORATORY Calcium 8.7 8.5 - 10.5 mg/dL [facility] LABORATORY Estimated GFR 38 (L) >=60 mL/min/1.73 m?? [facility] LABORATORY Comment: This patient's estimated [...] Organization Address City/State/ZIP [place] [address] (ABNORMAL) Basic Metabolic Panel (non-fasting) (02/26/2022 5:30 AM EDT) P athologist Signature Glucose Lvl 101 65 - 199 [facility] mg/dL [facility] LABORATORY Comment: Diabetes: >=200 mg/dL plus symp toms BUN 60 (H) 10 - 20 mg/dL [facility] LABORATORY Creatinine 2.39 (H) 0.80 - 1.50 mg/dL [facility] LABORATORY Sodium 142 135 - 145 mmol/L [facility] LABORATORY Potassium 4.4 3.5 - 5.0 mmol/L [facility] LABORATORY Comment: Please note: ??Patients with WBC >100,00 0 may have falsely elevated Potassium levels. ??For accurate Potassium quantif ication in these patients send serum separator tube (gold top) for subsequent determinations. ??Contact the Clinical Chemistry Laboratory if there are any qu estions. Chloride 105 98 - 107 mmol/L [facility] LABORATORY CO2 23 22 - 31 mmol/L [facility] LABORATORY Anion Gap 14 5 - 15 mmol/L [facility] LABORATORY Calcium 8.7 8.5 - 10.5 mg/dL [facility] LABORATORY Estimated GFR 36 (L) >=60 mL/min/1.73 m?? [facility] LABORATORY Comment: This patient's estimated [...] / Volume Laterality Blood 02/26/2022 5:30 AM 5:51 EDT AM EDT Resulting Agency Comment Spec In Lab Jayme Armstrong MD CHEMISTRY ORDERABLES Performing Organization Address City/State/ZIP [place] [address] PTH (02/25/2022 5:30 AM EDT) athologist Signature PTH 65 15 - 65 [facility] pg/mL [facility] LABORATORY Specimen Anatomical Collection Method Collection Time Receive d Time (Source) Location / / Volume Laterality Blood Venous Draw / 02/25/2022 5:30 AM 02/26/20 22 Unknown EDT 12:09 PM EDT Resulting Agency Comment Spec In Lab Tex Robles MD CHEMISTRY ORDERABLES Performing Organization Address City/State/ZIP Code Phon e Number [place] [phone] HOSPITAL LABORATORY Drive (ABNORMAL) Differential, Automated (02/25/2022 5:30 AM EDT) [facility] gist Method Time Signature Neutrophils % 67.3 % [facility] LABORATORY Neutr Abs (ANC) 6.38 (H) 1.70 - [facility] 6.10 [facility] x10(3)/[facility] LABORATORY Lymphocytes % 18.9 % [facility] LABORATORY Lymphocytes Abs 1.8 0.9 - 3.2 [facility] x10(3)/[facility] LABORATORY Monocytes % 8.7 % [facility] LABORATORY Monocyte Abs 0.8 0.3 - 0.9 [facility] x10(3)/[facility] LABORATORY Eosinophils % 1.8 % [facility] LABORATORY Eosinophils Abs 0.2 0.0 - 0.4 [facility] x10(3)/[facility] LABORATORY Basophils % 0.5 % [facility] LABORATORY Basophils Abs 0.0 0.0 - 0.1 [facility] x10(3)/[facility] LABORATORY Immature Gran % 2.80 % [facility] LABORATORY Comment: Immature granulocytes(IG's)percentage an d absolute count will include metamyelocytes, myelocytes, and promyelo cytes. Blood smears from CBCs yielding IG's will be scanned manually for concor dance. If this scan disagrees with the automated IG or if promyelocytes are not ed, a manual differential will be performed. Gemini Gran Abs 0.27 (H) 0.00 - 0.04 x10(3)/[facility] LABORATORY Specimen Anatomical Collection Method Collection Time Receive d Time (Source) Location / / Volume Laterality Blood 02/25/2022 5:30 AM 2 6:31 EDT AM EDT Resulting Agency Comment Spec In Lab Nancy Chahal MD HEMATOLOGY ORDERABLES Performing Organization Address City/State/ZIP [place] [address] (ABNORMAL) Hemogram (02/25/2022 5:30 AM EDT) Analysis Performed At Patho logist Time Signature WBC 9.5 4.0 - 9.5 [facility] x10(3)/[facility] LABORATORY RBC 2.63 (L) 4.58 - [facility] MANDO 5.54 [facility] x10(6)/[facility] LABORATORY Hemoglobin 7.5 (L) 13.7 - [facility] 16.[facility] g/dL [facility] LABORATORY Hematocrit 23.5 (L) 40.5 - [facility] MANDO 48.5 % [facility] LABORATORY MCV 89.4 82.9 - [facility] 93.1 [facility] LABORATORY MCH 28.5 27.5 - [facility] MAND[facility] 32.1 pg [facility] LABORATORY MCHC 31.9 (L) 32.0 - [facility] MANDO 35.7 g/dL [facility] LABORATORY Platelets 299 145 - 357 [facility] x10(3)/[facility] LABORATORY RDWSD 55.2 (H) 36.0 - [facility] MANDO 45.0 [facility] LABORATORY RDWCV 17.1 (H) 11.4 - [facility] MANDO 13.8 % [facility] LABORATORY MPV 8.3 7.6 - 12.9 [facility] nRBC % Auto 0.0 % [facility] LABORATORY nRBC Abs Auto 0.000 0.000 - [facility] MANDO 0.000 [facility] x10(3)/[facility] LABORATORY Specimen Anatomical Collection Method Collection Time Receive d Time (Source) Location / / Volume Laterality Blood 02/25/2022 5:30 AM 2 6:31 EDT AM EDT Resulting Agency Comment Spec In Lab Nancy Chahal MD HEMATOLOGY ORDERABLES Performing Organization Address City/State/ZIP [place] [address] Magnesium (02/25/2022 5:30 AM EDT) athologist Signature Magnesium 0.81 0.69 - 1.07 [facility] mmol/L [facility] LABORATORY Specimen Anatomical Collection Method Collection Time Receive d Time (Source) Location / / Volume Laterality Blood 02/25/2022 5:30 AM 2 6:31 EDT AM EDT Resulting Agency Comment Spec In Lab Jayme Armstrong MD CHEMISTRY ORDERABLES Performing Organization Address City/State/ZIP Code Phon e Number [address] (ABNORMAL) Phosphorus (02/25/2022 5:30 AM EDT) athologist Signature Phosphorus 4.9 (H) 2.5 - 4.5 [facility] mg/dL [facility] LABORATORY Specimen Anatomical Collection Method Collection Time Receive d Time (Source) Location / / Volume Laterality Blood 02/25/2022 5:30 AM 2 6:31 EDT AM EDT Resulting Agency Comment Spec In Lab Jayme Armstrong MD CHEMISTRY ORDERABLES Performing Organization Address City/[facility]/[place] [address] (ABNORMAL) Basic Metabolic Panel (non-fasting) (02/25/2022 5:30 AM EDT) athologist Signature Glucose Lvl 104 65 - 199 [facility] mg/dL [facility] LABORATORY Comment: Diabetes: >=200 mg/dL plus symp toms BUN 65 (H) 10 - 20 mg/dL [facility] LABORATORY Creatinine 2.94 (H) 0.80 - 1.50 mg/dL [facility] LABORATORY Sodium 139 135 - 145 mmol/L [facility] LABORATORY Potassium 4.2 3.5 - 5.0 mmol/L [facility] LABORATORY Comment: Please note: ??Patients with WBC >100,00 0 may have falsely elevated Potassium levels. ??For accurate Potassium quantif ication in these patients send serum separator tube (gold top) for subsequent determinations. ??Contact the Clinical Chemistry Laboratory if there are any qu estions. Chloride 102 98 - 107 mmol/L [facility] LABORATORY CO2 23 22 - 31 mmol/L [facility] LABORATORY Anion Gap 14 5 - 15 mmol/L [facility] LABORATORY Calcium 8.4 (L) 8.5 - 10.5 mg/dL [facility] LABORATORY Estimated GFR 28 (L) >=60 mL/min/1.73 m?? [facility] LABORATORY Comment: This patient's estimated [...] Organization Address City/State/ZIP [place] [address] (ABNORMAL) Basic Metabolic Panel (non-fasting) (02/24/2022 5:45 AM EDT) P athologist Signature Glucose Lvl 102 65 - 199 [facility] mg/dL [facility] LABORATORY Comment: Diabetes: >=200 mg/dL plus symp toms BUN 61 (H) 10 - 20 mg/dL [facility] LABORATORY Creatinine 2.96 (H) 0.80 - 1.50 mg/dL [facility] LABORATORY Comment: result rechecked-sf Sodium 137 135 - 145 mmol/L [facility] LABORATORY Potassium 4.5 3.5 - 5.0 mmol/L [facility] LABORATORY Comment: Please note: ??Patients with WBC >100,00 0 may have falsely elevated Potassium levels. ??For accurate Potassium quantif ication in these patients send serum separator tube (gold top) for subsequent determinations. ??Contact the Clinical Chemistry Laboratory if there are any qu estions. Chloride 102 98 - 107 mmol/L [facility] LABORATORY CO2 22 22 - 31 mmol/L [facility] LABORATORY Anion Gap 13 5 - 15 mmol/L [facility] LABORATORY Calcium 8.3 (L) 8.5 - 10.5 mg/dL [facility] LABORATORY Estimated GFR 28 (L) >=60 mL/min/1.73 m?? [facility] LABORATORY Comment: This patient's estimated [...] / Volume Laterality Blood 02/24/2022 5:45 AM 5:56 EDT AM EDT Resulting Agency Comment Spec In Lab Allison Kelly MD CHEMISTRY ORDERABLES Performing Organization Address City/State/ZIP [place] [address] SCAN DOC: LAB (02/24/2022 12:00 AM EDT) Narrative This result has an attachment that is no t available. Unknown MEDIA MGR SCAN EXT ORDR/RSLT (ABNORMAL) Differential, Automated (02/23/2022 5:00 AM EDT) athologist Signature Neutrophils % 69.0 % [facility] LABORATORY Neutr Abs (ANC) 5.59 1.70 - [facility] 6.10 [facility] x10(3)/[facility] LABORATORY Lymphocytes % 12.8 % [facility] LABORATORY Lymphocytes Abs 1.0 0.9 - 3.2 [facility] x10(3)/[facility] LABORATORY Monocytes % 10.0 % [facility] LABORATORY Monocyte Abs 0.8 0.3 - 0.9 [facility] x10(3)/[facility] LABORATORY Eosinophils % 2.6 % [facility] LABORATORY Eosinophils Abs 0.2 0.0 - 0.4 [facility] x10(3)/[facility] LABORATORY Basophils % 0.7 % [facility] LABORATORY Basophils Abs 0.1 0.0 - 0.1 [facility] x10(3)/[facility] LABORATORY Immature Gran % 4.90 % [facility] LABORATORY Comment: Immature granulocytes(IG's)percentage an d absolute count will include metamyelocytes, myelocytes, and promyelo cytes. Blood smears from CBCs yielding IG's will be scanned manually for concor dance. If this scan disagrees with the automated IG or if promyelocytes are not ed, a manual differential will be performed. Gemini Gran Abs 0.40 (H) 0.00 - 0.04 x10(3)/[facility] LABORATORY Specimen Anatomical Collection Method Collection Time Receive d Time (Source) Location / / Volume Laterality Blood 02/23/2022 5:00 AM 5:31 EDT AM EDT Resulting Agency Comment Spec In Lab Kaitlyn Rock MD HEMATOLOGY ORDERABLES Performing Organization Address City/State/ZIP [place] [address] (ABNORMAL) Hemogram (02/23/2022 5:00 AM EDT) Analysis Performed At Patho logist Time Signature WBC 8.1 4.0 - 9.5 [facility] x10(3)/[facility] LABORATORY RBC 2.50 (L) 4.58 - [facility] 5.54 [facility] x10(6)/[facility] LABORATORY Hemoglobin 7.0 (L) 13.7 - [facility] 16.5 g/dL [facility] LABORATORY Hematocrit 22.4 (L) 40.5 - [facility] 48.5 % [facility] LABORATORY MCV 89.6 82.9 - [facility] 93.1 [facility] LABORATORY MCH 28.0 27.5 - [facility] 32.1 pg [facility] LABORATORY MCHC 31.3 (L) 32.0 - [facility] 35.7 g/dL [facility] LABORATORY Platelets 300 145 - 357 [facility] x10(3)/[facility] LABORATORY RDWSD 57.0 (H) 36.0 - [facility] 45.0 [facility] LABORATORY RDWCV 17.5 (H) 11.4 - [facility] 13.8 % [facility] LABORATORY MPV 8.4 7.6 - 12.9 [facility] LABORATORY nRBC % Auto 0.0 % [facility] LABORATORY nRBC Abs Auto 0.000 0.000 - [facility] 0.000 [facility] x10(3)/[facility] LABORATORY Specimen Anatomical Collection Method Collection Time Receive d Time (Source) Location / / Volume Laterality Blood 02/23/2022 5:00 AM 5:31 EDT AM EDT Resulting Agency Comment Spec In Lab Kaitlyn Rock MD HEMATOLOGY ORDERABLES Performing Organization Address City/State/ZIP [place] [address] (ABNORMAL) Basic Metabolic Panel (non-fasting) (02/23/2022 5:00 AM EDT) athologist Signature Glucose Lvl 113 65 - 199 [facility] mg/dL [facility] LABORATORY Comment: Diabetes: >=200 mg/dL plus symp toms BUN 59 (H) 10 - 20 mg/dL [facility] Creatinine 3.90 (H) 0.80 - 1.50 mg/dL [facility] Sodium 137 135 - 145 mmol/L [facility] Potassium 4.6 3.5 - 5.0 mmol/L [facility] Comment: Please note: ??Patients with WBC >100,00 0 may have falsely elevated Potassium levels. ??For accurate Potassium quantif ication in these patients send serum separator tube (gold top) for subsequent determinations. ??Contact the Clinical Chemistry Laboratory if there are any qu estions. Chloride 102 98 - 107 mmol/L [facility] CO2 24 22 - 31 mmol/L [facility] Anion Gap 11 5 - 15 mmol/L [facility] Calcium 8.3 (L) 8.5 - 10.5 mg/dL [facility] Estimated GFR 20 (L) >=60 mL/min/1.73 m?? [facility] Comment: This patient's estimated [...] Organization Address City/State/ZIP [place] [address] (ABNORMAL) Phosphorus (02/23/2022 5:00 AM EDT) P athologist Signature Phosphorus 6.2 (H) 2.5 - 4.5 [facility] mg/dL [facility] Specimen Anatomical Collection Method Collection Time Receive d Time (Source) Location / / Volume Laterality Blood 02/23/2022 5:00 AM 2 5:31 EDT AM EDT Resulting Agency Comment Spec In Lab Gela Novak MD CHEMISTRY ORDERABLES Performing Organization Address City/State/ZIP Code Phon e Number [address] Magnesium (02/23/2022 5:00 AM EDT) P athologist Signature Magnesium 0.93 0.69 - 1.07 [facility] mmol/L [facility] Specimen Anatomical Collection Method Collection Time Receive d Time (Source) Location / / Volume Laterality Blood 02/23/2022 5:00 AM 5:31 EDT AM EDT Resulting Agency Comment Spec In Lab Gela Novak MD CHEMISTRY ORDERABLES Performing Organization Address City/[facility]/ZIP Code Phon e Number [address] (ABNORMAL) Differential, Automated (02/22/2022 1:08 AM EDT) Patholo gist Method Time Signature Neutrophils % 64.0 % [facility] Neutr Abs (ANC) 5.73 1.70 - [facility] 6.10 [facility] x10(3)/[facility] LABORATORY Lymphocytes % 15.0 % [facility] Lymphocytes Abs 1.3 0.9 - 3.2 [facility] x10(3)/[facility] LABORATORY Monocytes % 10.9 % [facility] Monocyte Abs 1.0 (H) 0.3 - 0.9 [facility] x10(3)/[facility] LABORATORY Eosinophils % 3.0 % [facility] Eosinophils Abs 0.3 0.0 - 0.4 [facility] x10(3)/[facility] LABORATORY Basophils % 0.6 % [facility] Basophils Abs 0.0 0.0 - 0.1 [facility] x10(3)/[facility] LABORATORY Immature Gran % 6.50 % [facility] Comment: Immature granulocytes(IG's)percentage an d absolute count will include metamyelocytes, myelocytes, and promyelo cytes. Blood smears from CBCs yielding IG's will be scanned manually for concor dance. If this scan disagrees with the automated IG or if promyelocytes are not ed, a manual differential will be performed. Gemini Gran Abs 0.58 (H) 0.00 - 0.04 x10(3)/[facility] LABORATORY Specimen Anatomical Collection Method Collection Time Receive d Time (Source) Location / / Volume Laterality Blood 02/22/2022 1:08 AM 1:25 EDT AM EDT Resulting Agency Comment Spec In Lab Kaitlyn Rock MD HEMATOLOGY ORDERABLES Performing Organization Address City/State/ZIP [place] [address] (ABNORMAL) Hemogram (02/22/2022 1:08 AM EDT) Analysis Performed At Patho logist Time Signature WBC 8.9 4.0 - 9.5 [facility] x10(3)/[facility] LABORATORY RBC 2.56 (L) 4.58 - [facility] 5.[facility] x10(6)/[facility] LABORATORY Hemoglobin 7.3 (L) 13.7 - [facility] 16.5 g/dL [facility] Hematocrit 22.7 (L) 40.5 - [facility] 48.5 % [facility] MCV 88.7 82.9 - [facility] 93.1 [facility]ORY MCH 28.5 27.5 - [facility] MANDO 32.1 pg [facility] MCHC 32.2 32.0 - [facility] 35.7 g/dL [facility] Platelets 317 145 - 357 [facility] x10(3)/[facility] LABORATORY RDWSD 58.2 (H) 36.0 - [facility] [employer] 45.0 [facility] LABORATORY RDWCV 17.9 (H) 11.4 - [facility] MANDO 13.8 % [facility] MPV 8.5 7.6 - 12.9 [facility] LABORATORY nRBC % Auto 0.0 % [facility] nRBC Abs Auto 0.000 0.000 - [facility] MANDO 0.000 [facility] x10(3)/[facility] LABORATORY Specimen Anatomical Collection Method Collection Time Receive d Time (Source) Location / / Volume Laterality Blood 02/22/2022 1:08 AM 2 1:25 EDT AM EDT Resulting Agency Comment Spec In Lab Kaitlyn Rock MD HEMATOLOGY ORDERABLES Performing Organization Address City/State/ZIP [place] [address] (ABNORMAL) Basic Metabolic Panel (non-fasting) (02/22/2022 1:08 AM EDT) P athologist Signature Glucose Lvl 95 65 - 199 [facility] mg/dL [facility] Comment: Diabetes: >=200 mg/dL plus symp toms BUN 55 (H) 10 - 20 mg/dL [facility] Creatinine 3.91 (H) 0.80 - 1.50 mg/dL [facility] Sodium 137 135 - 145 mmol/L [facility] Potassium 5.1 (H) 3.5 - 5.0 mmol/L [facility] Comment: Please note: ??Patients with WBC >100,00 0 may have falsely elevated Potassium levels. ??For accurate Potassium quantif ication in these patients send serum separator tube (gold top) for subsequent determinations. ??Contact the Clinical Chemistry Laboratory if there are any qu estions. Chloride 101 98 - 107 mmol/L [facility] CO2 23 22 - 31 mmol/L [facility] Anion Gap 13 5 - 15 mmol/L [facility] Calcium 8.2 (L) 8.5 - 10.5 mg/dL [facility] Estimated GFR 20 (L) >=60 mL/min/1.73 m?? [facility] Comment: This patient's estimated [...] Organization Address City/State/ZIP Code Phon e Number [address] (ABNORMAL) Phosphorus (02/22/2022 1:08 AM EDT) P athologist Signature Phosphorus 5.9 (H) 2.5 - 4.5 [facility] mg/dL [facility] Specimen Anatomical Collection Method Collection Time Receive d Time (Source) Location / / Volume Laterality Blood 02/22/2022 1:08 AM 2 1:25 EDT AM EDT Resulting Agency Comment Spec In Lab Gela Novak MD CHEMISTRY ORDERABLES Performing Organization Address City/State/[place] [address] Magnesium (02/22/2022 1:08 AM EDT) P athologist Signature Magnesium 0.90 0.69 - 1.07 [facility] mmol/L [facility] Specimen Anatomical Collection Method Collection Time Receive d Time (Source) Location / / Volume Laterality Blood 02/22/2022 1:08 AM 2 1:25 EDT AM EDT Resulting Agency Comment Spec In Lab Gela Novak MD CHEMISTRY ORDERABLES Performing Organization Address City/State/[place] [address] Trans[employer] RBC (02/21/2022 4:53 PM EDT) Gela Novak MD NURSING TREATMENT ORDERABLES - BLOOD ADMIN Transfuse RBC (02/21/2022 4:53 PM EDT) Gela Novak MD NURSING TREATMENT ORDERABLES - BLOOD ADMIN Type and Screen Validity (02/21/2022 12:40 PM EDT) [facility] Method Time Signature T&S only valid [facility] LABORATORY Comment: This Type and Screen result is only valid at the [facility] Specimen Anatomical Collection Method Collection Time Receive d Time (Source) Location / / Volume Laterality Blood 02/21/2022 12:40 02/21/2022 1:12 PM EDT PM EDT Resulting Agency Comment Spec In Lab Melissa Gonzales MD BLOOD BANK ORDERABLES Performing Organization Address City/State/[place] [address] ABORH Recheck Status (02/21/2022 12:40 PM EDT) [facility] Signature ABORH Type Completed [facility] LABORATORY Specimen Anatomical Collection Method Collection Time Receive d Time (Source) Location / / Volume Laterality Blood 02/21/2022 12:40 02/21/2022 1:12 PM EDT PM EDT Resulting Agency Comment Spec In Lab Melissa Gonzales MD BLOOD BANK ORDERABLES Performing Organization Address City/[facility]/ZIP Code Phon e Number [place] [id number]OSP[address] LAB[address] Antibody screen (02/21/2022 12:40 PM EDT) [facility] Method Time Signature Ab Screen Negative [facility] LABORATORY Expires at 02/24/2022 [facility] MANDO [id number] on: [facility] Specimen Anatomical Collection Method Collection Time Receive d Time (Source) Location / / Volume Laterality Blood 02/21/2022 12:40 02/21/2022 1:12 PM EDT PM EDT Resulting Agency Comment Spec In Lab Melissa Gonzales MD BLOOD BANK ORDERABLES Performing Organization Address City/[facility]/[place] [address] ABO/Rh Typing (02/21/2022 12:40 PM EDT) athologist Signature ABORh Type A Pos [facility] Specimen Anatomical Collection Method Collection Time Receive d Time (Source) Location / / Volume Laterality Blood 02/21/2022 12:40 02/21/2022 1:12 PM EDT PM EDT Resulting Agency Comment Spec In Lab Melissa Gonzales MD BLOOD BANK ORDERABLES Performing Organization Address City/[facility]/ZIP Code Phon e Number [address] Prepare RBC (02/21/2022 12:20 PM EDT) P athologist Signature Dispensed? Yes [facility] Specimen Anatomical Collection Method Collection Time Receive d Time (Source) Location / / Volume Laterality Blood 02/21/2022 12:20 02/21/2022 PM EDT 12:19 PM EDT Gela Novak MD BLOOD BANK ORDERABLES Performing Organization Address City/[facility]/[place] [address] (ABNORMAL) Albumin Level (02/21/2022 3:38 AM EDT) athologist Signature Albumin 2.3 (L) 3.2 - 5.2 [facility] g/dL [facility] Specimen Anatomical Collection Method Collection Time Receive d Time (Source) Location / / Volume Laterality Blood Venous Draw / 02/21/2022 3:38 AM 02/22/20 3:47 Unknown EDT AM EDT Resulting Agency Comment Spec In Lab Bambi Pressley MD CHEMISTRY ORDERABLES Performing Organization Address City/[facility]/[place] [address] (ABNORMAL) Differential, Automated (02/21/2022 3:38 AM EDT) athologist Signature Neutrophils % 67.8 % [facility] Neutr Abs (ANC) 6.03 1.70 - [facility] 6.10 [facility] x10(3)/[facility] LABORATORY Lymphocytes % 13.5 % [facility] Lymphocytes Abs 1.2 0.9 - 3.2 [facility] x10(3)/[facility] LABORATORY Monocytes % 9.4 % [facility] Monocyte Abs 0.8 0.3 - 0.9 [facility] x10(3)/[facility] LABORATORY Eosinophils % 3.1 % [facility] Eosinophils Abs 0.3 0.0 - 0.4 [facility] x10(3)/[facility] LABORATORY Basophils % 0.6 % [facility] Basophils Abs 0.0 0.0 - 0.1 [facility] x10(3)/[facility] LABORATORY Immature Gran % 5.60 % [facility] Comment: Immature granulocytes(IG's)percentage an d absolute count will include metamyelocytes, myelocytes, and promyelo cytes. Blood smears from CBCs yielding IG's will be scanned manually for concor dance. If this scan disagrees with the automated IG or if promyelocytes are not ed, a manual differential will be performed. Gemini Gran Abs 0.50 (H) 0.00 - 0.04 x10(3)/[facility] LABORATORY Specimen Anatomical Collection Method Collection Time Receive d Time (Source) Location / / Volume Laterality Blood 02/21/2022 3:38 AM 3:46 EDT AM EDT Resulting Agency Comment Spec In Lab Kaitlyn Rock MD HEMATOLOGY ORDERABLES Performing Organization Address City/State/ZIP [place] [address] (ABNORMAL) Hemogram (02/21/2022 3:38 AM EDT) Analysis Performed At Patho logist Time Signature WBC 8.9 4.0 - 9.5 [facility] x10(3)/[facility] LABORATORY RBC 2.37 (L) 4.58 - [facility] 5.54 [facility] x10(6)/[facility] LABORATORY Hemoglobin 6.9 (L) 13.7 - [facility] 16.5 g/dL [facility] Hematocrit 21.4 (L) 40.5 - [facility] 48.5 % [facility] MCV 90.3 82.9 - [facility] 93.1 fL [facility] MCH 29.1 27.5 - [facility] 32.1 pg [facility] MCHC 32.2 32.0 - [facility] 35.7 g/dL [facility] Platelets 273 145 - 357 [facility] x10(3)/[facility] LABORATORY RDWSD 50.5 (H) 36.0 - [facility] 45.0 [facility] LABORATORY RDWCV 15.7 (H) 11.4 - [facility] 13.8 % [facility] MPV 8.5 7.6 - 12.9 [facility] LABORATORY nRBC % Auto 0.0 % [facility] nRBC Abs Auto 0.000 0.000 - [facility] 0.000 [facility] x10(3)/[facility] LABORATORY Specimen Anatomical Collection Method Collection Time Receive d Time (Source) Location / / Volume Laterality Blood 02/21/2022 3:38 AM 2 3:46 EDT AM EDT Resulting Agency Comment Spec In Lab Kaitlyn Rock MD HEMATOLOGY ORDERABLES Performing Organization Address City/State/ZIP [place] [address] (ABNORMAL) Basic Metabolic Panel (non-fasting) (02/21/2022 3:38 AM EDT) P athologist Signature Glucose Lvl 96 65 - 199 [facility] mg/dL [facility] Comment: Diabetes: >=200 mg/dL plus symp toms BUN 46 (H) 10 - 20 mg/dL [facility] Creatinine 3.68 (H) 0.80 - 1.50 mg/dL [facility] Sodium 136 135 - 145 mmol/L [facility] Potassium 4.9 3.5 - 5.0 mmol/L [facility] Comment: Please note: ??Patients with WBC >100,00 0 may have falsely elevated Potassium levels. ??For accurate Potassium quantif ication in these patients send serum separator tube (gold top) for subsequent determinations. ??Contact the Clinical Chemistry Laboratory if there are any qu estions. Chloride 101 98 - 107 mmol/L [facility] CO2 26 22 - 31 mmol/L [facility] Anion Gap 9 5 - 15 mmol/L [facility] Calcium 8.1 (L) 8.5 - 10.5 mg/dL [facility] Estimated GFR 22 (L) >=60 mL/min/1.73 m?? [facility] Comment: This patient's estimated [...] Organization Address City/State/ZIP Code Phon e Number [address] (ABNORMAL) Phosphorus (02/21/2022 3:38 AM EDT) P athologist Signature Phosphorus 5.1 (H) 2.5 - 4.5 [facility] mg/dL [facility] Specimen Anatomical Collection Method Collection Time Receive d Time (Source) Location / / Volume Laterality Blood 02/21/2022 3:38 AM 2 3:46 EDT AM EDT Resulting Agency Comment Spec In Lab Gela Novak MD CHEMISTRY ORDERABLES Performing Organization Address City/State/ZIP Code Phon e Number [address] Magnesium (02/21/2022 3:38 AM EDT) P athologist Signature Magnesium 0.92 0.69 - 1.07 [facility] mmol/L [facility] Specimen Anatomical Collection Method Collection Time Receive d Time (Source) Location / / Volume Laterality Blood 02/21/2022 3:38 AM 2 3:46 EDT AM EDT Resulting Agency Comment Spec In Lab Gela Novak MD CHEMISTRY ORDERABLES Performing Organization Address City/State/ZIP [place] [address] (ABNORMAL) Differential, Automated (02/20/2022 4:45 AM EDT) [facility] Method Time Signature Neutrophils % 67.8 % [facility] Neutr Abs (ANC) 6.58 (H) 1.70 - [facility] 6.10 [facility] x10(3)/[facility] LABORATORY Lymphocytes % 12.7 % [facility] Lymphocytes Abs 1.2 0.9 - 3.2 [facility] x10(3)/[facility] LABORATORY Monocytes % 9.2 % [facility] Monocyte Abs 0.9 0.3 - 0.9 [facility] x10(3)/[facility] LABORATORY Eosinophils % 3.0 % [facility] Eosinophils Abs 0.3 0.0 - 0.4 [facility] x10(3)/[facility] LABORATORY Basophils % 0.4 % [facility] Basophils Abs 0.0 0.0 - 0.1 [facility] x10(3)[facility] LABORATORY Immature Gran % 6.90 % [facility] Comment: Immature granulocytes(IG's)percentage an d absolute count will include metamyelocytes, myelocytes, and promyelo cytes. Blood smears from CBCs yielding IG's will be scanned manually for concor dance. If this scan disagrees with the automated IG or if promyelocytes are not ed, a manual differential will be performed. Gemini Gran Abs 0.67 (H) 0.00 - 0.04 x10(3)/[facility] LABORATORY Specimen Anatomical Collection Method Collection Time Receive d Time (Source) Location / / Volume Laterality Blood 02/20/2022 4:45 AM 2 5:02 EDT AM EDT Resulting Agency Comment Spec In Lab Kaitlyn Rock MD HEMATOLOGY ORDERABLES Performing Organization Address City/State/[place] [address] (ABNORMAL) Hemogram (02/20/2022 4:45 AM EDT) Analysis Performed At Patho logist Time Signature WBC 9.7 (H) 4.0 - 9.5 [facility] x[facility](3[facility] LABORATORY RBC 2.48 (L) 4.58 - [facility] 5.54 [facility] x10(6)/[facility] LABORATORY Hemoglobin 7.2 (L) 13.7 - [facility] 16.5 g/dL [facility] Hematocrit 22.2 (L) 40.5 - [facility] 48.5 % [facility] MCV 89.5 82.9 - [facility] 93.1 [facility]ORATORY MCH 29.0 27.5 - [facility] 32.1 pg [facility] MCHC 32.4 32.0 - [facility] 35.7 g/dL [facility] Platelets 312 145 - 357 [facility] x10(3)/[facility] LABORATORY RDWSD 49.6 (H) 36.0 - [facility] 45.0 [facility] LABORATORY RDWCV 15.4 (H) 11.4 - [facility] 13.8 % [facility] MPV 8.4 7.6 - 12.9 [facility] LABORATORY nRBC % Auto 0.0 % [facility] nRBC Abs Auto 0.000 0.000 - [facility] MANDO 0.000 [facility] x10(3)/[facility] LABORATORY Specimen Anatomical Collection Method Collection Time Receive d Time (Source) Location / / Volume Laterality Blood 02/20/2022 4:45 AM 5:02 EDT AM EDT Resulting Agency Comment Spec In Lab Kaitlyn Rock MD HEMATOLOGY ORDERABLES Performing Organization Address City/[facility]/ZIP [place] [address] (ABNORMAL) Basic Metabolic Panel (non-fasting) (02/20/2022 4:45 AM EDT) P athologist Signature Glucose Lvl 98 65 - 199 [facility] mg/dL [facility] Comment: Diabetes: >=200 mg/dL plus symp toms BUN 35 (H) 10 - 20 mg/dL [facility] Creatinine 3.27 (H) 0.80 - 1.50 mg/dL [facility] Comment: result rechecked-trb Sodium 136 135 - 145 mmol/L [facility] Potassium 4.7 3.5 - 5.0 mmol/L [facility] Comment: Please note: ??Patients with WBC >100,00 0 may have falsely elevated Potassium levels. ??For accurate Potassium quantif ication in these patients send serum separator tube (gold top) for subsequent determinations. ??Contact the Clinical Chemistry Laboratory if there are any qu estions. Chloride 99 98 - 107 mmol/L [facility] CO2 27 22 - 31 mmol/L [facility] Anion Gap 10 5 - 15 mmol/L [facility] Calcium 7.8 (L) 8.5 - 10.5 mg/dL [facility] Estimated GFR 25 (L) >=60 mL/min/1.73 m?? [facility] Comment: This patient's estimated [...] Novak MD CHEMISTRY ORDERABLES Performing Organization Address City/[facility]/ZIP Code Phon e Number [address] (ABNORMAL) Phosphorus (02/20/2022 4:45 AM EDT) P athologist Signature Phosphorus 4.6 (H) 2.5 - 4.5 [facility] mg/dL [facility] Specimen Anatomical Collection Method Collection Time Receive d Time (Source) Location / / Volume Laterality Blood 02/20/2022 4:45 AM 2 5:02 EDT AM EDT Resulting Agency Comment Spec In Lab Gela Novak MD CHEMISTRY ORDERABLES Performing Organization Address City/[facility]/ZIP Code Phon e Number [address] Magnesium (02/20/2022 4:45 AM EDT) athologist Signature Magnesium 0.83 0.69 - 1.07 [facility] mmol/L [facility] Specimen Anatomical Collection Method Collection Time Receive d Time (Source) Location / / Volume Laterality Blood 02/20/2022 4:45 AM 2 5:02 EDT AM EDT Resulting Agency Comment Spec In Lab Gela Novak MD CHEMISTRY ORDERABLES Performing Organization Address City/[facility]/[place] [address] Duplex for DVT, Arm, Unilat (02/19/2022 3:45 PM EDT) Component Value Ref Test Analysis Performed At Patholo gist Range Method Time Signature VB Text Department: Vascular Surgery Lab VASCUBASE Report Patient: [id number] (ALIX HOLLAND) CPT: 50956 Referring Physician: GELA NOVAK ?? Phone: Indications: [...] VASCUBASE Anaerobic Culture (02/19/2022 9:45 AM EDT) [facility] [employer] Method Time Signature Anaerobic No anaerobic [facility] Culture organisms [facility] LABORATORY Specimen Anatomical Collection Method Collection Time Receive d Time (Source) Location / / Volume Laterality Deep Wound STRUCTURE OF LEFT 02/19/2022 9:45 AM /09/2021 THIGH / Unknown EDT 10:24 AM EDT Comment: Left leg wound culture Resulting Agency Comment Spec In Lab Floridalma Sandoval MD MICROBIOLOGY - GENERAL ORDER JT Performing Organization Address City/[facility]/[place] [address] (ABNORMAL) Abscess/Wound Aspirate Culture (02/19/2022 9:45 AM EDT) Component Value Ref Test Analysis Performed At [facility] [employer] Range Method Time Signature Abscess/Wound Rare Serratia marcescens M JON Aspirate Rare Pseudomonas aeruginosa HI TCHCOCK Culture (A) [facility] Gram Stain Moderate Neutrophils JOSH No microorganisms seen. [facility] OCK (A) [facility] Organism Serratia JOSH marcescens (A) [facility] Organism Pseudomonas JOSH aeruginosa (A) [facility] Specimen Anatomical Collection Method Collection Time Receive d Time (Source) Location / / Volume Laterality Deep Wound STRUCTURE OF LEFT 02/19/2022 9:45 AM /09/2021 THIGH / Unknown EDT 10:24 AM EDT [...] Organization Address City/State/ZIP [place] [address] (ABNORMAL) Vitamin D, 25-Hydroxy (02/19/2022 12:27 AM EDT) [facility] Method Time Signature 25-OH Vit D 12 (L) 21 - 100 [facility] Total ng/mL [facility] 25-OH Vit D Deficient [facility] LABORATORY Specimen Anatomical Collection Method Collection Time Receive d Time (Source) Location / / Volume Laterality Blood Venous Draw / 02/19/2022 12:27 02/19/2022 Unknown AM EDT 12:44 AM EDT Resulting Agency Comment Spec In Lab Vidhya Peñaloza MD CHEMISTRY ORDERABLES Performing Organization Address City/[facility]/[place] [address] (ABNORMAL) Ferritin (02/19/2022 12:27 AM EDT) P athologist Signature Ferritin 855 (H) 30 - 400 [facility] ng/mL [facility] Comment: Pediatric reference ranges not verified at [facility], interpret with caution. Reference ranges for females greater trina n 50 years of age approach values for men, i.e., 30-400 ng/mL. Specimen Anatomical Collection Method Collection Time Receive d Time (Source) Location / / Volume Laterality Blood Venous Draw / 02/19/2022 12:27 02/19/2022 Unknown AM EDT 12:44 AM EDT Resulting Agency Comment Spec In Lab Bambi Pressley MD CHEMISTRY ORDERABLES Performing Organization Address City/[facility]/ZIP Code Phon e Number [address] (ABNORMAL) Differential, Automated (02/19/2022 12:27 AM EDT) Patholo gist Method Time Signature Neutrophils % 66.5 % [facility] Neutr Abs (ANC) 8.58 (H) 1.70 - [facility] 6.10 [facility] x10(3)/[facility] L LABORATORY Lymphocytes % 11.4 % [facility] Lymphocytes Abs 1.5 0.9 - 3.2 [facility] x10(3)/[facility] LABORATORY Monocytes % 7.6 % [facility] Monocyte Abs 1.0 (H) 0.3 - 0.9 [facility] x10(3)/[facility] LABORATORY Eosinophils % 4.0 % [facility] Eosinophils Abs 0.5 (H) 0.0 - 0.4 [facility] x10(3)/[facility] LABORATORY Basophils % 0.5 % [facility] Basophils Abs 0.1 0.0 - 0.1 [facility] x10(3)/[facility] LABORATORY Immature Gran % 10.00 % [facility] Comment: Immature granulocytes(IG's)percentage an d absolute count will include metamyelocytes, myelocytes, and promyelo cytes. Blood smears from CBCs yielding IG's will be scanned manually for concor dance. If this scan disagrees with the automated IG or if promyelocytes are not ed, a manual differential will be performed. Gemini Gran Abs 1.29 (H) 0.00 - 0.04 x10(3)/[facility] LABORATORY Specimen Anatomical Collection Method Collection Time Receive d Time (Source) Location / / Volume Laterality Blood 02/19/2022 12:27 02/19/2022 AM EDT 12:33 AM EDT Resulting Agency Comment Spec In Lab Collette yDe MD HEMATOLOGY ORDERABLES Performing Organization Address City/State/ZIP [place] [address] (ABNORMAL) Hemogram (02/19/2022 12:27 AM EDT) Analysis Performed At Patho logist Time Signature WBC 12.9 (H) 4.0 - 9.5 [facility] x10(3)/[facility] LABORATORY RBC 2.44 (L) 4.58 - [facility] 5.54 [facility] x10(6)/[facility] LABORATORY Hemoglobin 7.1 (L) 13.7 - [facility] 16.5 g/dL [facility] Hematocrit 21.9 (L) 40.5 - [facility] 48.5 % [facility] MCV 89.8 82.9 - [facility] 93.1 fL [facility] MCH 29.1 27.5 - [facility] 32.1 pg [facility] MCHC 32.4 32.0 - [facility] 35.7 g/dL [facility] Platelets 320 145 - 357 [facility] x10(3)/[facility] LABORATORY RDWSD 51.8 (H) 36.0 - [facility] 45.0 [facility] LABORATORY RDWCV 15.7 (H) 11.4 - [facility] 13.8 % [facility] MPV 8.7 7.6 - 12.9 [facility] LABORATORY nRBC % Auto 0.0 % [facility] nRBC Abs Auto 0.000 0.000 - [facility] 0.000 [facility] x10(3)/[facility] LABORATORY Specimen Anatomical Collection Method Collection Time Receive d Time (Source) Location / / Volume Laterality Blood 02/19/2022 12:27 02/19/2022 AM EDT 12:33 AM EDT Resulting Agency Comment Spec In Lab Collette Dye MD HEMATOLOGY ORDERABLES Performing Organization Address City/State/ZIP [place] [address] (ABNORMAL) Basic Metabolic Panel (non-fasting) (02/19/2022 12:27 AM EDT) athologist Signature Glucose Lvl 100 65 - 199 [facility] mg/dL [facility] Comment: Diabetes: >=200 mg/dL plus symp toms BUN 49 (H) 10 - 20 mg/dL [facility] Creatinine 4.47 (H) 0.80 - 1.50 mg/dL [facility] Sodium 133 (L) 135 - 145 mmol/L [facility] Potassium 4.6 3.5 - 5.0 mmol/L [facility] Comment: Please note: ??Patients with WBC >100,00 0 may have falsely elevated Potassium levels. ??For accurate Potassium quantif ication in these patients send serum separator tube (gold top) for subsequent determinations. ??Contact the Clinical Chemistry Laboratory if there are any qu estions. Chloride 97 (L) 98 - 107 mmol/L [facility] CO2 24 22 - 31 mmol/L [facility] Anion Gap 12 5 - 15 mmol/L [facility] LABORATORY Calcium 7.8 (L) 8.5 - 10.5 mg/dL [facility] Estimated GFR 17 (L) >=60 mL/min/1.73 m?? [facility] Comment: This patient's estimated [...] Novak MD CHEMISTRY ORDERABLES Performing Organization Address City/[facility]/ZIP Code Phon e Number [address] (ABNORMAL) Phosphorus (02/19/2022 12:27 AM EDT) P athologist Signature Phosphorus 5.9 (H) 2.5 - 4.5 [facility] mg/dL [facility] Specimen Anatomical Collection Method Collection Time Receive d Time (Source) Location / / Volume Laterality Blood 02/19/2022 12:27 02/19/2022 AM EDT 12:33 AM EDT Resulting Agency Comment Spec In Lab Gela Novak MD CHEMISTRY ORDERABLES Performing Organization Address City/State/ZIP Code Phon e Number [address] Magnesium (02/19/2022 12:27 AM EDT) P athologist Signature Magnesium 0.84 0.69 - 1.07 [facility] mmol/L [facility] Specimen Anatomical Collection Method Collection Time Receive d Time (Source) Location / / Volume Laterality Blood 02/19/2022 12:27 02/19/2022 AM EDT 12:33 AM EDT Resulting Agency Comment Spec In Lab Gela Novak MD CHEMISTRY ORDERABLES Performing Organization Address City/[facility]/[place] [address] Hepatitis B Surface Antigen (02/19/2022 12:27 AM EDT) Analysis Performed At Path logist Time Signature HepB Surface Negative Negative [facility] LABORATORY Specimen Anatomical Collection Method Collection Time Receive d Time (Source) Location / / Volume Laterality Blood 02/19/2022 12:27 02/19/2022 AM EDT 12:33 AM EDT Resulting Agency Comment Spec In Lab Gela Novak MD CHEMISTRY ORDERABLES Performing Organization Address City/[facility]/[place] [address] Scan, Peripheral Blood (02/18/2022 4:01 AM EDT) [facility] [employer] Method Time Signature Plat Estimate Normal [facility] RBC Morphology Abnormal [facility] Ovalocytes 1-5 /HPF [facility] Stippled RBCs Present >1/HPF [facility] Specimen Anatomical Collection Method Collection Time Receive d Time (Source) Location / / Volume Laterality Blood 02/18/2022 4:01 AM 4:16 EDT AM EDT Resulting Agency Comment Spec In Lab Collette Dye MD HEMATOLOGY ORDERABLES Performing Organization Address City/[facility]/[place] [address] (ABNORMAL) Differential, Automated (02/18/2022 4:01 AM EDT) [facility] [employer] Method Time Signature Neutrophils % 70.4 % [facility] Neutr Abs (ANC) 10.70 (H) 1.70 - [facility] 6.10 [facility] x10(3)/[facility] LABORATORY Lymphocytes % 8.0 % [facility] Lymphocytes Abs 1.2 0.9 - 3.2 [facility] x10(3)/[facility] LABORATORY Monocytes % 7.7 % [facility] Monocyte Abs 1.2 (H) 0.3 - 0.9 [facility] x10(3)/[facility] LABORATORY Eosinophils % 3.2 % [facility] Eosinophils Abs 0.5 (H) 0.0 - 0.4 [facility] x10(3)/[facility] LABORATORY Basophils % 0.4 % [facility] Basophils Abs 0.1 0.0 - 0.1 [facility] x10(3)/[facility] LABORATORY Immature Gran % 10.30 % [facility] Comment: Immature granulocytes(IG's)percentage an d absolute count will include metamyelocytes, myelocytes, and promyelo cytes. Blood smears from CBCs yielding IG's will be scanned manually for concor dance. If this scan disagrees with the automated IG or if promyelocytes are not ed, a manual differential will be performed. Gemini Gran Abs 1.56 (H) 0.00 - 0.04 x10(3)/[facility] LABORATORY Specimen Anatomical Collection Method Collection Time Receive d Time (Source) Location / / Volume Laterality Blood 02/18/2022 4:01 AM 4:16 EDT AM EDT Resulting Agency Comment Spec In Lab Collette Dye MD HEMATOLOGY ORDERABLES Performing Organization Address City/State/ZIP [place] [address] (ABNORMAL) Hemogram (02/18/2022 4:01 AM EDT) Analysis Performed At Patho logist Time Signature WBC 15.2 (H) 4.0 - 9.5 [facility] x10(3)/[facility] LABORATORY RBC 2.44 (L) 4.58 - [facility] 5.54 [facility] x10(6)/[facility] LABORATORY Hemoglobin 7.0 (L) 13.7 - [facility] 16.5 g/dL [facility] Hematocrit 22.0 (L) 40.5 - [facility] 48.5 % [facility] MCV 90.2 82.9 - [facility] 93.1 [facility] LABORATORY MCH 28.7 27.5 - [facility] 32.1 pg [facility] MCHC 31.8 (L) 32.0 - [facility] 35.7 g/dL [facility] Platelets 325 145 - 357 [facility] x10(3)/[facility] LABORATORY RDWSD 51.1 (H) 36.0 - [facility] 45.0 [facility] LABORATORY RDWCV 15.5 (H) 11.4 - [facility] 13.8 % [facility] MPV 8.8 7.6 - 12.9 [facility] LABORATORY nRBC % Auto 0.0 % [facility] nRBC Abs Auto 0.000 0.000 - [facility] 0.000 [facility] x10(3)/[facility] LABORATORY Specimen Anatomical Collection Method Collection Time Receive d Time (Source) Location / / Volume Laterality Blood 02/18/2022 4:01 AM 4:16 EDT AM EDT Resulting Agency Comment Spec In Lab Collette Dye MD HEMATOLOGY ORDERABLES Performing Organization Address City/State/ZIP [place] [address] (ABNORMAL) Basic Metabolic Panel (non-fasting) (02/18/2022 4:01 AM EDT) P athologist Signature Glucose Lvl 98 65 - 199 [facility] mg/dL [facility] Comment: Diabetes: >=200 mg/dL plus symp toms BUN 36 (H) 10 - 20 mg/dL [facility] LABORATORY Creatinine 3.80 (H) 0.80 - 1.50 mg/dL [facility] Comment: result rechecked-trb Sodium 132 (L) 135 - 145 mmol/L [facility] Potassium 4.3 3.5 - 5.0 mmol/L [facility] Comment: Please note: ??Patients with WBC >100,00 0 may have falsely elevated Potassium levels. ??For accurate Potassium quantif ication in these patients send serum separator tube (gold top) for subsequent determinations. ??Contact the Clinical Chemistry Laboratory if there are any qu estions. Chloride 97 (L) 98 - 107 mmol/L [facility] CO2 28 22 - 31 mmol/L [facility] Anion Gap 7 5 - 15 mmol/L [facility] LABORATORY Calcium 7.9 (L) 8.5 - 10.5 mg/dL [facility] Estimated GFR 21 (L) >=60 mL/min/1.73 m?? [facility] Comment: This patient's estimated [...] Novak MD CHEMISTRY ORDERABLES Performing Organization Address City/[facility]/[place] [address] (ABNORMAL) Phosphorus (02/18/2022 4:01 AM EDT) P athologist Signature Phosphorus 4.9 (H) 2.5 - 4.5 [facility] mg/dL [facility] Specimen Anatomical Collection Method Collection Time Receive d Time (Source) Location / / Volume Laterality Blood 02/18/2022 4:01 AM 2 4:17 EDT AM EDT Resulting Agency Comment Spec In Lab Gela Novak MD CHEMISTRY ORDERABLES Performing Organization Address City/State/[place] [address] Magnesium (02/18/2022 4:01 AM EDT) P athologist Signature Magnesium 0.79 0.69 - 1.07 [facility] mmol/L [facility] Specimen Anatomical Collection Method Collection Time Receive d Time (Source) Location / / Volume Laterality Blood 02/18/2022 4:01 AM 4:17 EDT AM EDT Resulting Agency Comment Spec In Lab Gela Novak MD CHEMISTRY ORDERABLES Performing Organization Address City/[facility] [place] [address] Anaerobic Culture (02/17/2022 8:35 AM EDT) [facility] [employer] Method Time Signature Anaerobic No anaerobic [facility] Culture organisms [facility] LABORATORY Specimen Anatomical Collection Method Collection Time Receive d Time (Source) Location / / Volume Laterality Deep Wound STRUCTURE OF LEFT 02/17/2022 8:35 AM 07/ THIGH / Unknown EDT 10:03 AM EDT Comment: Left lateral thigh wound Resulting Agency Comment Spec In Lab Jayme Armstrong MD MICROBIOLOGY - GENERAL ORDER JT Performing Organization Address City/[facility]/[place] [address] (ABNORMAL) Abscess/Wound Aspirate Culture (02/17/2022 8:35 AM EDT) Component Value Ref Test Analysis Performed At [facility] [employer] Range Method Time Signature Abscess/Woun One colony of JOS[facility] d Aspirate Serratia marcescens MIMS Culture : Susceptibilities [facility] (A) LABORATORY Gram Stain Moderate Neutrophils [facility] No microorganisms seen. [facility] (A) [facility] Organism Serratia marcescens [facility] (A) [facility] Specimen Anatomical Collection Method Collection Time Receive d Time (Source) Location / / Volume Laterality Deep Wound STRUCTURE OF LEFT 02/17/2022 8:35 AM 07/2 THIGH / Unknown EDT 10:03 AM EDT Comment: Left lateral thigh wound Resulting Agency Comment Spec In Lab Jayme Armstrong MD MICROBIOLOGY - GENERAL ORDER JT Performing Organization Address City/[facility]/ZIP Code Phon e Number [place] [id number]OS[address] Anaerobic Culture (02/17/2022 8:35 AM EDT) [facility] [employer] Method Time Signature Anaerobic No anaerobic [facility] Culture organisms [facility] LABORATORY Specimen Anatomical Collection Method Collection Time Receive d Time (Source) Location / / Volume Laterality Deep Wound STRUCTURE OF LEFT 02/17/2022 8:35 AM / THIGH / Unknown EDT 10:02 AM EDT Comment: left superior thigh wound Resulting Agency Comment Spec In Lab Jayme Armstrong MD MICROBIOLOGY - GENERAL ORDER JT Performing Organization Address City/[facility]/ZIP Code Phon e Number [address] (ABNORMAL) Abscess/Wound Aspirate Culture (02/17/2022 8:35 AM EDT) Component Value Ref Test Analysis Performed At [facility] [employer] Range Method Time Signature Abscess/Woun One colony of Serratia gabriele scens : Susceptibilities previously reported Hustler Aspirate One colony of Pseudomonas ae ruginosa : Susceptibilities previously reported [facility] Culture (A) [facility] Gram Stain Moderate Neutrophils seen MAR Y No microorganisms seen. [facility] (A) [facility] Organism Serratia marcescens [facility] (A) [facility] Organism Pseudomonas J[facility] aeruginosa (A) [facility] Specimen Anatomical Collection Method Collection Time Receive d Time (Source) Location / / Volume Laterality Deep Wound STRUCTURE OF LEFT 02/17/2022 8:35 AM 01/30 THIGH / Unknown EDT 10:02 AM EDT Comment: left superior thigh wound Resulting Agency Comment Spec In Lab Jayme Armstrong MD MICROBIOLOGY - GENERAL ORDER JT Performing Organization Address City/[facility]/[place] [address] (ABNORMAL) Differential, Automated (02/17/2022 3:40 AM EDT) [facility] [employer] Method Time Signature Neutrophils % 66.7 % [facility] Neutr Abs (ANC) 11.34 (H) 1.70 - [facility] 6.10 [facility] x10(3)/[facility] L LABORATORY Lymphocytes % 8.6 % [facility] Lymphocytes Abs 1.5 0.9 - 3.2 [facility] x10(3)/[facility] LABORATORY Monocytes % 6.6 % [facility] Monocyte Abs 1.1 (H) 0.3 - 0.9 [facility] x10(3)/[facility] LABORATORY Eosinophils % 3.9 % [facility] Eosinophils Abs 0.7 (H) 0.0 - 0.4 [facility] x10(3)/[facility] LABORATORY Basophils % 0.5 % [facility]ORY Basophils Abs 0.1 0.0 - 0.1 [facility] x10(3)/[facility] LABORATORY Immature Gran % 13.70 % [facility] Comment: Immature granulocytes(IG's)percentage an d absolute count will include metamyelocytes, myelocytes, and promyelo cytes. Blood smears from CBCs yielding IG's will be scanned manually for concor dance. If this scan disagrees with the automated IG or if promyelocytes are not ed, a manual differential will be performed. Gemini Gran Abs 2.33 (H) 0.00 - 0.04 x10(3)/[facility] LABORATORY Specimen Anatomical Collection Method Collection Time Receive d Time (Source) Location / / Volume Laterality Blood 02/17/2022 3:40 AM 3:59 EDT AM EDT Resulting Agency Comment Spec In Lab Collette Dye MD HEMATOLOGY ORDERABLES Performing Organization Address City/State/ZIP [place] [address] (ABNORMAL) Hemogram (02/17/2022 3:40 AM EDT) Analysis Performed At Patho logist Time Signature WBC 17.0 (H) 4.0 - 9.5 [facility] x10(3)/[facility] LABORATORY RBC 2.46 (L) 4.58 - [facility] 5.54 [facility] x10(6)/[facility] LABORATORY Hemoglobin 7.1 (L) 13.7 - [facility] 16.5 g/dL [facility]OR[facility]ORY Hematocrit 22.2 (L) 40.5 - [facility] 48.5 % [facility] LABORATORY MCV 90.2 82.9 - [facility] 93.1 [facility] LABORATORY MCH 28.9 27.5 - [facility] [place] 32.1 pg [facility] LABORATORY MCHC 32.0 32.0 - [facility] [place] 35.7 g/dL [facility] Platelets 316 145 - 357 [facility] x10(3)/[facility] LABORATORY RDWSD 51.5 (H) 36.0 - [facility] [place] 45.0 [facility] LABORATORY RDWCV 15.7 (H) 11.4 - [facility] [place] 13.8 % [facility] LABORATORY MPV 9.0 7.6 - 12.9 [facility] LABORATORY nRBC % Auto 0.0 % [facility] nRBC Abs Auto 0.000 0.000 - [facility] 0.000 [facility] x10(3)/[facility] LABORATORY Specimen Anatomical Collection Method Collection Time Receive d Time (Source) Location / / Volume Laterality Blood 02/17/2022 3:40 AM 3:59 EDT AM EDT Resulting Agency Comment Spec In Lab Collette Dye MD HEMATOLOGY ORDERABLES Performing Organization Address City/State/[place] [address] (ABNORMAL) Basic Metabolic Panel (non-fasting) (02/17/2022 3:40 AM EDT) athologist Signature Glucose Lvl 101 65 - 199 [facility] mg/dL [facility] Comment: Diabetes: >=200 mg/dL plus symp toms BUN 51 (H) 10 - 20 mg/dL [facility] LABORATORY Creatinine 5.07 (H) 0.80 - 1.50 mg/dL [facility] Comment: result rechecked- Sodium 130 (L) 135 - 145 mmol/L [facility] Potassium 4.5 3.5 - 5.0 mmol/L [facility] Comment: Please note: ??Patients with WBC >100,00 0 may have falsely elevated Potassium levels. ??For accurate Potassium quantif ication in these patients send serum separator tube (gold top) for subsequent determinations. ??Contact the Clinical Chemistry Laboratory if there are any qu estions. Chloride 96 (L) 98 - 107 mmol/L [facility] CO2 24 22 - 31 mmol/L [facility] Anion Gap 10 5 - 15 mmol/L [facility] LABORATORY Calcium 7.8 (L) 8.5 - 10.5 mg/dL [facility] Estimated GFR 15 (L) >=60 mL/min/1.73 m?? [facility] Comment: This patient's estimated [...] Novak MD CHEMISTRY ORDERABLES Performing Organization Address City/State/[facility] [place] [address] (ABNORMAL) Phosphorus (02/17/2022 3:40 AM EDT) P athologist Signature Phosphorus 5.7 (H) 2.5 - 4.5 [facility] mg/dL [facility] Specimen Anatomical Collection Method Collection Time Receive d Time (Source) Location / / Volume Laterality Blood 02/17/2022 3:40 AM 2 3:59 EDT AM EDT Resulting Agency Comment Spec In Lab Gela Novak MD CHEMISTRY ORDERABLES Performing Organization Address City/State/ZIP Code Phon e Number [place] [address] [facility] [address] Magnesium (02/17/2022 3:40 AM EDT) P athologist Signature Magnesium 0.86 0.69 - 1.07 [facility] mmol/L [facility] LABORATORY Specimen Anatomical Collection Method Collection Time Receive d Time (Source) Location / / Volume Laterality Blood 02/17/2022 3:40 AM 3:59 EDT AM EDT Resulting Agency Comment Spec In Lab Gela Novak MD CHEMISTRY ORDERABLES Performing Organization Address City/State/ZIP Code Phon e Number [address] (ABNORMAL) Differential, Automated (02/16/2022 4:05 AM EDT) Patholo gist Method Time Signature Neutrophils % 66.8 % [facility] LABORATORY Neutr Abs (ANC) 12.70 (H) 1.70 - [facility] 6.10 [facility] x10(3)/[facility] LABORATORY Lymphocytes % 6.8 % [facility] LABORATORY Lymphocytes Abs 1.3 0.9 - 3.2 [facility] x10(3)/[facility] LABORATORY Monocytes % 5.9 % [facility] LABORATORY Monocyte Abs 1.1 (H) 0.3 - 0.9 [facility] x10(3)/[facility] LABORATORY Eosinophils % 3.2 % [facility] LABORATORY Eosinophils Abs 0.6 (H) 0.0 - 0.4 [facility] x10(3)/[facility] LABORATORY Basophils % 0.6 % [facility] LABORATORY Basophils Abs 0.1 0.0 - 0.1 [facility] x10(3)/[facility] LABORATORY Immature Gran % 16.70 % [facility] LABORATORY Comment: Immature granulocytes(IG's)percentage an d absolute count will include metamyelocytes, myelocytes, and promyelo cytes. Blood smears from CBCs yielding IG's will be scanned manually for concor dance. If this scan disagrees with the automated IG or if promyelocytes are not ed, a manual differential will be performed. Gemini Gran Abs 3.17 (H) 0.00 - 0.04 x10(3)/[facility] LABORATORY Specimen Anatomical Collection Method Collection Time Receive d Time (Source) Location / / Volume Laterality Blood 02/16/2022 4:05 AM 4:20 EDT AM EDT Resulting Agency Comment Spec In Lab Veto Hidalgo MD HEMATOLOGY ORDERABLES Performing Organization Address City/State/ZIP [place] [address] (ABNORMAL) Hemogram (02/16/2022 4:05 AM EDT) Analysis Performed At Patho logist Time Signature WBC 19.0 (H) 4.0 - 9.5 [facility] x[facility](3[facility] LABORATORY RBC 2.50 (L) 4.58 - [facility] [place] 5.54 [facility] x10(6)/[facility] LABORATORY Hemoglobin 7.3 (L) 13.7 - [facility] 16.5 g/dL [facility] LABORATORY Hematocrit 22.3 (L) 40.5 - [facility] [place] 48.5 % [facility] LABORATORY MCV 89.2 82.9 - [facility] 93.1 [facility] LABORATORY MCH 29.2 27.5 - [facility] [place] 32.1 pg [facility] LABORATORY MCHC 32.7 32.0 - [facility] [place] 35.7 g/dL [facility] LABORATORY Platelets 296 145 - 357 [facility] x10(3)/[facility] LABORATORY RDWSD 51.5 (H) 36.0 - [facility] [place] 45.0 [facility] LABORATORY RDWCV 15.7 (H) 11.4 - [facility] [place] 13.8 % [facility] LABORATORY MPV 9.2 7.6 - 12.9 [facility] nRBC % Auto 0.0 % [facility] LABORATORY nRBC Abs Auto 0.000 0.000 - [facility] [employer] 0.000 [facility] x10(3)/[facility] LABORATORY Specimen Anatomical Collection Method Collection Time Receive d Time (Source) Location / / Volume Laterality Blood 02/16/2022 4:05 AM 2 4:20 EDT AM EDT Resulting Agency Comment Spec In Lab Veto Hidalgo MD HEMATOLOGY ORDERABLES Performing Organization Address City/State/ZIP [place] [address] (ABNORMAL) Basic Metabolic Panel (non-fasting) (02/16/2022 4:05 AM EDT) P athologist Signature Glucose Lvl 94 65 - 199 [facility] mg/dL [facility] LABORATORY Comment: Diabetes: >=200 mg/dL plus symp toms BUN 35 (H) 10 - 20 mg/dL [facility] LABORATORY Creatinine 3.65 (H) 0.80 - 1.50 mg/dL [facility] LABORATORY Comment: result rechecked-bm Sodium 128 (L) 135 - 145 mmol/L [facility] LABORATORY Potassium 4.4 3.5 - 5.0 mmol/L [facility] LABORATORY Comment: Please note: ??Patients with WBC >100,00 0 may have falsely elevated Potassium levels. ??For accurate Potassium quantif ication in these patients send serum separator tube (gold top) for subsequent determinations. ??Contact the Clinical Chemistry Laboratory if there are any qu estions. Chloride 95 (L) 98 - 107 mmol/L [facility] LABORATORY CO2 26 22 - 31 mmol/L [facility] LABORATORY Anion Gap 7 5 - 15 mmol/L [facility] LABORATORY Calcium 7.7 (L) 8.5 - 10.5 mg/dL [facility] LABORATORY Estimated GFR 22 (L) >=60 mL/min/1.73 m?? [facility] LABORATORY Comment: This patient's estimated [...] Organization Address City/State/ZIP Code Phon e Number [address] Phosphorus (02/16/2022 4:05 AM EDT) athologist Signature Phosphorus 4.5 2.5 - 4.5 [facility] mg/dL [facility] Specimen Anatomical Collection Method Collection Time Receive d Time (Source) Location / / Volume Laterality Blood 02/16/2022 4:05 AM 2 4:20 EDT AM EDT Resulting Agency Comment Spec In Lab Gela Novak MD CHEMISTRY ORDERABLES Performing Organization Address City/[facility]/ZIP Code Phon e Number [address] Magnesium (02/16/2022 4:05 AM EDT) athologist Signature Magnesium 0.83 0.69 - 1.07 [facility] mmol/L [facility] LABORATORY Specimen Anatomical Collection Method Collection Time Receive d Time (Source) Location / / Volume Laterality Blood 02/16/2022 4:05 AM 2 4:20 EDT AM EDT Resulting Agency Comment Spec In Lab Gela Novak MD CHEMISTRY ORDERABLES Performing Organization Address City/[facility]/[place] [address] Anaerobic Culture (02/15/2022 9:06 AM EDT) Patholo gist Method Time Signature Anaerobic No anaerobic [facility] Culture organisms [facility] LABORATORY Specimen Anatomical Collection Method Collection Time Receive d Time (Source) Location / / Volume Laterality Deep Wound STRUCTURE OF LEFT 02/15/2022 9:06 AM 01/29 THIGH / Unknown EDT 10:49 AM EDT Comment: Left thigh wound culture Resulting Agency Comment Spec In Lab Jayme Armstrong MD MICROBIOLOGY - GENERAL ORDER JT Performing Organization Address City/State/ZIP [place] [address] (ABNORMAL) Abscess/Wound Aspirate Culture (02/15/2022 9:06 AM EDT) [facility] Method Time Signature Abscess/Wound Few Serratia marcescens MA RY Aspirate Rare Pseudomonas aeruginosa HI [facility] Culture Rare mixed bacterial morphotypes suggestive of normal cutaneous yessy [facility] LABORATORY Gram Stain Moderate Gram Positive Cocci JOSH Rare Gram Negative Rods [facility] ([facility] LABORATORY Organism Serratia JOSH marcescens (A) [facility] LABORATORY Organism Pseudomonas JOSH aeruginosa (A) [facility] LABORATORY Specimen Anatomical Collection Method Collection Time [...] Organization Address City/State/[place] [address] (ABNORMAL) Differential, Automated (02/15/2022 3:50 AM EDT) [facility] gist Method Time Signature Neutrophils % 61.8 % [facility] LABORATORY Neutr Abs (ANC) 13.66 (H) 1.70 - [facility] 6.10 [facility] x10(3)/[facility] LABORATORY Lymphocytes % 7.3 % [facility] LABORATORY Lymphocytes Abs 1.6 0.9 - 3.2 [facility] x10(3)/[facility] LABORATORY Monocytes % 5.4 % [facility] LABORATORY Monocyte Abs 1.2 (H) 0.3 - 0.9 [facility] x10(3)/[facility] LABORATORY Eosinophils % 3.1 % [facility] LABORATORY Eosinophils Abs 0.7 (H) 0.0 - 0.4 [facility] x10(3)[facility] LABORATORY Basophils % 0.5 % [facility] LABORATORY Basophils Abs 0.1 0.0 - 0.1 [facility] x10(3)/[facility] LABORATORY Immature Gran % 21.90 % [facility] LABORATORY Comment: Immature granulocytes(IG's)percentage an d absolute count will include metamyelocytes, myelocytes, and promyelo cytes. Blood smears from CBCs yielding IG's will be scanned manually for ny crain. If this scan disagrees with the automated IG or if promyelocytes are not ed, a manual differential will be performed. Gemini Gran Abs 4.85 (H) 0.00 - 0.04 x10(3)/[facility] LABORATORY Specimen Anatomical Collection Method Collection Time Receive d Time (Source) Location / / Volume Laterality Blood 02/15/2022 3:50 AM 4:05 EDT AM EDT Resulting Agency Comment Spec In Lab Veto Hidalgo MD HEMATOLOGY ORDERABLES Performing Organization Address City/State/ZIP [place] [address] (ABNORMAL) Hemogram (02/15/2022 3:50 AM EDT) Analysis Performed At Patho logist Time Signature WBC 22.1 (H) 4.0 - 9.5 [facility] x10(3[facility] LABORATORY RBC 2.43 (L) 4.58 - [facility] [place] 5.54 [facility] x10(6)/[facility] LABORATORY Hemoglobin 7.2 (L) 13.7 - [facility] 16.5 g/dL [facility] LABORATORY Hematocrit 21.3 (L) 40.5 - [facility] 48.5 % [facility] LABORATORY MCV 87.7 82.9 - [facility] [place] 93.1 [facility] LABORATORY MCH 29.6 27.5 - [facility] [place] 32.1 pg [facility] LABORATORY MCHC 33.8 32.0 - [facility] [place] 35.7 g/dL [facility] LABORATORY Platelets 254 145 - 357 [facility] x[facility](3[facility] LABORATORY RDWSD 49.2 (H) 36.0 - [facility] [place] 45.0 [facility] LABORATORY RDWCV 15.3 (H) 11.4 - [facility] 13.8 % [facility] LABORATORY MPV 9.3 7.6 - 12.9 [facility] LABORATORY nRBC % Auto 0.0 % [facility] LABORATORY nRBC Abs Auto 0.000 0.000 - [facility] 0.000 [facility] x10(3)/[facility] LABORATORY Specimen Anatomical Collection Method Collection Time Receive d Time (Source) Location / / Volume Laterality Blood 02/15/2022 3:50 AM 4:05 EDT AM EDT Resulting Agency Comment Spec In Lab Veto Hidalgo MD HEMATOLOGY ORDERABLES Performing Organization Address City/State/ZIP [place] [address] (ABNORMAL) Basic Metabolic Panel (non-fasting) (02/15/2022 3:50 AM EDT) athologist Signature Glucose Lvl 91 65 - 199 [facility] mg/dL [facility] LABORATORY Comment: Diabetes: >=200 mg/dL plus symp toms BUN 62 (H) 10 - 20 mg/dL [facility] LABORATORY Creatinine 5.16 (H) 0.80 - 1.50 mg/dL [facility] LABORATORY Comment: result rechecked- Sodium 126 (L) 135 - 145 mmol/L [facility] LABORATORY Potassium 4.8 3.5 - 5.0 mmol/L [facility] LABORATORY Comment: Please note: ??Patients with WBC >100,00 0 may have falsely elevated Potassium levels. ??For accurate Potassium quantif ication in these patients send serum separator tube (gold top) for subsequent determinations. ??Contact the Clinical Chemistry Laboratory if there are any qu estions. Chloride 92 (L) 98 - 107 mmol/L [facility] LABORATORY CO2 23 22 - 31 mmol/L [facility] LABORATORY Anion Gap 11 5 - 15 mmol/L [facility] LABORATORY Calcium 7.5 (L) 8.5 - 10.5 mg/dL [facility] LABORATORY Estimated GFR 14 (L) >=60 mL/min/1.73 m?? [facility] LABORATORY Comment: This patient's estimated [...] Novak MD CHEMISTRY ORDERABLES Performing Organization Address City/[facility]/ZIP Code Phon e Number [address] (ABNORMAL) Phosphorus (02/15/2022 3:50 AM EDT) athologist Signature Phosphorus 5.7 (H) 2.5 - 4.5 [facility] mg/dL [facility] LABORATORY Specimen Anatomical Collection Method Collection Time Receive d Time (Source) Location / / Volume Laterality Blood 02/15/2022 3:50 AM 2 4:05 EDT AM EDT Resulting Agency Comment Spec In Lab Gela Novak MD CHEMISTRY ORDERABLES Performing Organization Address City/[facility]/[place] [address] Magnesium (02/15/2022 3:50 AM EDT) P athologist Signature Magnesium 0.82 0.69 - 1.07 [facility] mmol/L [facility] LABORATORY Specimen Anatomical Collection Method Collection Time Receive d Time (Source) Location / / Volume Laterality Blood 02/15/2022 3:50 AM 2 4:05 EDT AM EDT Resulting Agency Comment Spec In Lab Gela Novak MD CHEMISTRY ORDERABLES Performing Organization Address City/[facility]/[place] [address] Scan, Peripheral Blood (02/14/2022 5:26 AM EDT) [employer] Method Time Signature Plat Estimate Normal [facility] LABORATORY RBC Morphology Abnormal [facility] LABORATORY Hypochromia Slight [facility] LABORATORY Specimen Anatomical Collection Method Collection Time Receive d Time (Source) Location / / Volume Laterality Blood 02/14/2022 5:26 AM 5:45 EDT AM EDT Resulting Agency Comment Spec In Lab Veto Hidalgo MD HEMATOLOGY ORDERABLES Performing Organization Address City/State/ZIP [place] [address] (ABNORMAL) Differential, Automated (02/14/2022 5:26 AM EDT) [facility] Method Time Signature Neutrophils % 52.2 % [facility] LABORATORY Neutr Abs (ANC) 12.07 (H) 1.70 - [facility] 6.10 [facility] x10(3)/[facility] LABORATORY Lymphocytes % 7.7 % [facility] LABORATORY Lymphocytes Abs 1.8 0.9 - 3.2 [facility] x10(3)/[facility] LABORATORY Monocytes % 6.7 % [facility] LABORATORY Monocyte Abs 1.5 (H) 0.3 - 0.9 [facility] x10(3)/[facility] LABORATORY Eosinophils % 3.1 % [facility] LABORATORY Eosinophils Abs 0.7 (H) 0.0 - 0.4 [facility] x10(3)/[facility] LABORATORY Basophils % 0.3 % [facility] LABORATORY Basophils Abs 0.1 0.0 - 0.1 [facility] x10(3)/[facility] LABORATORY Immature Gran % 30.00 % [facility] LABORATORY Comment: Immature granulocytes(IG's)percentage an d absolute count will include metamyelocytes, myelocytes, and promyelo cytes. Blood smears from CBCs yielding IG's will be scanned manually for concor dance. If this scan disagrees with the automated IG or if promyelocytes are not ed, a manual differential will be performed. Gemini Gran Abs 6.92 (H) 0.00 - 0.04 x10(3)/[facility] LABORATORY Specimen Anatomical Collection Method Collection Time Receive d Time (Source) Location / / Volume Laterality Blood 02/14/2022 5:26 AM 2 5:45 EDT AM EDT Resulting Agency Comment Spec In Lab Veto Hidalgo MD HEMATOLOGY ORDERABLES Performing Organization Address City/State/ZIP [place] [address] (ABNORMAL) Hemogram (02/14/2022 5:26 AM EDT) Analysis Performed At Patho logist Time Signature WBC 23.1 (H) 4.0 - 9.5 [facility] x10(3)/[facility] LABORATORY RBC 2.62 (L) 4.58 - [facility] 5.54 [facility] x10(6)/[facility] LABORATORY Hemoglobin 8.0 (L) 13.7 - [facility] 16.5 g/dL [facility] LABORATORY Hematocrit 23.0 (L) 40.5 - [facility] 48.5 % [facility] LABORATORY MCV 87.8 82.9 - [facility] 93.1 [facility] LABORATORY MCH 30.5 27.5 - [facility] 32.1 pg [facility] LABORATORY MCHC 34.8 32.0 - [facility] 35.7 g/dL [facility] LABORATORY Platelets 240 145 - 357 [facility] x10(3)/[facility] LABORATORY RDWSD 49.2 (H) 36.0 - [facility] 45.0 [facility] LABORATORY RDWCV 15.5 (H) 11.4 - [facility] 13.8 % [facility] LABORATORY MPV 9.4 7.6 - 12.9 [facility] LABORATORY nRBC % Auto 0.0 % [facility] LABORATORY nRBC Abs Auto 0.000 0.000 - [facility] 0.000 [facility] x10(3)/[facility] LABORATORY Specimen Anatomical Collection Method Collection Time Receive d Time (Source) Location / / Volume Laterality Blood 02/14/2022 5:26 AM 2 5:45 EDT AM EDT Resulting Agency Comment Spec In Lab Veto Hidalgo MD HEMATOLOGY ORDERABLES Performing Organization Address City/State/ZIP [place] [address] (ABNORMAL) Basic Metabolic Panel (non-fasting) (02/14/2022 5:26 AM EDT) P athologist Signature Glucose Lvl 92 65 - 199 [facility] mg/dL [facility] LABORATORY Comment: Diabetes: >=200 mg/dL plus symp toms BUN 47 (H) 10 - 20 mg/dL [facility] LABORATORY Creatinine 4.06 (H) 0.80 - 1.50 mg/dL [facility] LABORATORY Comment: result rechecked-KS Sodium 127 (L) 135 - 145 mmol/L [facility] LABORATORY Potassium 4.4 3.5 - 5.0 mmol/L [facility] LABORATORY Comment: Please note: ??Patients with WBC >100,00 0 may have falsely elevated Potassium levels. ??For accurate Potassium quantif ication in these patients send serum separator tube (gold top) for subsequent determinations. ??Contact the Clinical Chemistry Laboratory if there are any qu estions. Chloride 91 (L) 98 - 107 mmol/L [facility] LABORATORY CO2 23 22 - 31 mmol/L [facility] LABORATORY Anion Gap 13 5 - 15 mmol/L [facility] LABORATORY Calcium 7.1 (L) 8.5 - 10.5 mg/dL [facility] LABORATORY Estimated GFR 19 (L) >=60 mL/min/1.73 m?? [facility] LABORATORY Comment: This patient's estimated [...] Novak MD CHEMISTRY ORDERABLES Performing Organization Address City/[facility]/ZIP Code Phon e Number [address] (ABNORMAL) Phosphorus (02/14/2022 5:26 AM EDT) P athologist Signature Phosphorus 4.7 (H) 2.5 - 4.5 [facility] mg/dL [facility] LABORATORY Specimen Anatomical Collection Method Collection Time Receive d Time (Source) Location / / Volume Laterality Blood 02/14/2022 5:26 AM 2 5:45 EDT AM EDT Resulting Agency Comment Spec In Lab Gela Novak MD CHEMISTRY ORDERABLES Performing Organization Address City/[facility]/[place] [address] Magnesium (02/14/2022 5:26 AM EDT) P athologist Signature Magnesium 0.80 0.69 - 1.07 [facility] mmol/L [facility] LABORATORY Specimen Anatomical Collection Method Collection Time Receive d Time (Source) Location / / Volume Laterality Blood 02/14/2022 5:26 AM 2 5:45 EDT AM EDT Resulting Agency Comment Spec In Lab Gela Novak MD CHEMISTRY ORDERABLES Performing Organization Address City/[facility]/[place] [address] Femur w Contrast [...] who have questions please contact the health care associate that requested your imaging first. [...] ho have questions please contact the health care associate that requested your imaging first. Parrish Betancourt [...] who have questions please contact the health care associate that requested your imaging first. [...] ho have questions please contact the health care associate that requested your imaging first. Parrish Betancourt MD IMG CT ORDERABLES XR [...] who have questions please contact the health care associate that requested your imaging first. ? Narrative 02/13/2022 8:56 AM EDT EXAMINATION: XR [...] ho have questions please contact the health care associate that requested your imaging first. Parrish Betancourt MD IMG DX ORDERABLES Scan, Peripheral Blood (02/13/2022 12:20 AM EDT) [facility] gist Method Time Signature Plat Estimate Normal [facility] LABORATORY RBC Morphology Abnormal [facility] Hypochromia Slight [facility] LABOR[facility] Angel Cells 1-5 /HPF [facility] LABORATORY Stippled RBCs Present >1/HPF [facility] LABORATORY Toxic Present [facility] LABORATORY Specimen Anatomical Collection Method Collection Time Receive d Time (Source) Location / / Volume Laterality Blood 02/13/2022 12:20 02/13/2022 AM EDT 12:37 AM EDT Resulting Agency Comment Spec In Lab Kaitlyn Rock MD HEMATOLOGY ORDERABLES Performing Organization Address City/State/ZIP [place] [address] (ABNORMAL) Differential, Automated (02/13/2022 12:20 AM EDT) [facility] Method Time Signature Neutrophils % 44.9 % [facility] LABORATORY Neutr Abs (ANC) 11.00 (H) 1.70 - [facility] 6.10 [facility] x10(3)/[facility] LABORATORY Lymphocytes % 8.8 % [facility] LABORATORY Lymphocytes Abs 2.2 0.9 - 3.2 [facility] x10(3)/[facility] LABORATORY Monocytes % 9.3 % [facility] LABORATORY Monocyte Abs 2.3 (H) 0.3 - 0.9 [facility] x10(3)/[facility] LABORATORY Eosinophils % 2.6 % [facility] LABORATORY Eosinophils Abs 0.6 (H) 0.0 - 0.4 [facility] x10(3)/[facility] LABORATORY Basophils % 0.3 % [facility] LABORATORY Basophils Abs 0.1 0.0 - 0.1 [facility] x10(3)/[facility] LABORATORY Immature Gran % 34.10 % [facility] LABORATORY Comment: Immature granulocytes(IG's)percentage an d absolute count will include metamyelocytes, myelocytes, and promyelo cytes. Blood smears from CBCs yielding IG's will be scanned manually for concor dance. If this scan disagrees with the automated IG or if promyelocytes are not ed, a manual differential will be performed. Gemini Gran Abs 8.35 (H) 0.00 - 0.04 x10(3)/[facility] LABORATORY Specimen Anatomical Collection Method Collection Time Receive d Time (Source) Location / / Volume Laterality Blood 02/13/2022 12:20 02/13/2022 AM EDT 12:37 AM EDT Resulting Agency Comment Spec In Lab Kaitlyn Rock MD HEMATOLOGY ORDERABLES Performing Organization Address City/State/ZIP [place] [address] (ABNORMAL) Hemogram (02/13/2022 12:20 AM EDT) Analysis Performed At Patho logist Time Signature WBC 24.5 (H) 4.0 - 9.5 [facility] x[facility](3[facility] LABORATORY RBC 2.72 (L) 4.58 - [facility] 5.54 [facility] x10(6)/[facility] LABORATORY Hemoglobin 8.0 (L) 13.7 - [facility] 16.5 g/dL [facility] Hematocrit 23.6 (L) 40.5 - [facility] 48.5 % [facility] MCV 86.8 82.9 - [facility] 93.1 [facility] MCH 29.4 27.5 - [facility] 32.1 pg [facility] MCHC 33.9 32.0 - [facility] 35.7 g/dL [facility] Platelets 201 145 - 357 [facility] x10(3)/[facility] LABORATORY RDWSD 48.3 (H) 36.0 - [facility] 45.0 [facility]ATORY RDWCV 15.4 (H) 11.4 - [facility] 13.8 % [facility] MPV 9.7 7.6 - 12.9 [facility] LABORATORY nRBC % Auto 0.0 % [facility] nRBC Abs Auto 0.000 0.000 - [facility] MANDO 0.000 [facility] x10(3)/[facility] LABORATORY Specimen Anatomical Collection Method Collection Time Receive d Time (Source) Location / / Volume Laterality Blood 02/13/2022 12:20 02/13/2022 AM EDT 12:37 AM EDT Resulting Agency Comment Spec In Lab Kaitlyn Rock MD HEMATOLOGY ORDERABLES Performing Organization Address City/[facility]/ZIP [place] [address] (ABNORMAL) Basic Metabolic Panel (non-fasting) (02/13/2022 12:20 AM EDT) P athologist Signature Glucose Lvl 120 65 - 199 [facility] mg/dL [facility] Comment: Diabetes: >=200 mg/dL plus symp toms BUN 30 (H) 10 - 20 mg/dL [facility] Creatinine 2.85 (H) 0.80 - 1.50 mg/dL [facility] Comment: result rechecked-bm Sodium 127 (L) 135 - 145 mmol/L [facility] Potassium 3.8 3.5 - 5.0 mmol/L [facility] Comment: Please note: ??Patients with WBC >100,00 0 may have falsely elevated Potassium levels. ??For accurate Potassium quantif ication in these patients send serum separator tube (gold top) for subsequent determinations. ??Contact the Clinical Chemistry Laboratory if there are any qu estions. Chloride 94 (L) 98 - 107 mmol/L [facility] CO2 27 22 - 31 mmol/L [facility] Anion Gap 6 5 - 15 mmol/L [facility] Calcium 7.0 (L) 8.5 - 10.5 mg/dL [facility] Comment: result rechecked-bm Estimated GFR 30 (L) >=60 mL/min/1.73 m?? [facility] Comment: This patient's estimated [...] Organization Address City/State/[place] [address] Phosphorus (02/13/2022 12:20 AM EDT) P athologist Signature Phosphorus 2.8 2.5 - 4.5 [facility] mg/dL [facility] Specimen Anatomical Collection Method Collection Time Receive d Time (Source) Location / / Volume Laterality Blood 02/13/2022 12:20 02/13/2022 AM EDT 12:37 AM EDT Resulting Agency Comment Spec In Lab Gela Novak MD CHEMISTRY ORDERABLES Performing Organization Address City/State/[place] [address] Magnesium (02/13/2022 12:20 AM EDT) athologist Signature Magnesium 0.79 0.69 - 1.07 [facility] mmol/L [facility] Specimen Anatomical Collection Method Collection Time Receive d Time (Source) Location / / Volume Laterality Blood 02/13/2022 12:20 02/13/2022 AM EDT 12:37 AM EDT Resulting Agency Comment Spec In Lab Gela Novak MD CHEMISTRY ORDERABLES Performing Organization Address City/State/[place] [address] (ABNORMAL) Sodium (02/12/2022 4:45 PM EDT) P athologist Signature Sodium 128 (L) 135 - 145 [facility] mmol/L [facility] Specimen Anatomical Collection Method Collection Time Receive d Time (Source) Location / / Volume Laterality Blood 02/12/2022 4:45 PM 5:17 EDT PM EDT Resulting Agency Comment Spec In Lab Parrish Betancourt MD CHEMISTRY ORDERABLES Performing Organization Address City/State/[place] [address] Prepare RBC (02/12/2022 9:55 AM EDT) athologist Signature Dispensed? Yes [facility] Specimen Anatomical Collection Method Collection Time Receive d Time (Source) Location / / Volume Laterality Blood 02/12/2022 9:55 AM 2 9:53 EDT AM EDT Parrish Betancourt MD BLOOD BANK ORDERABLES Performing Organization Address City/State/ZIP Code Phon e Number [address] (ABNORMAL) Sodium (02/12/2022 9:16 AM EDT) P athologist Signature Sodium 125 (L) 135 - 145 [facility] mmol/L [facility] Specimen Anatomical Collection Method Collection Time Receive d Time (Source) Location / / Volume Laterality Blood 02/12/2022 9:16 AM 2 9:18 EDT AM EDT Resulting Agency Comment Spec In Lab Parrish Betancourt MD CHEMISTRY ORDERABLES Performing Organization Address City/[facility]/ZIP Code Phon e Number [address] (ABNORMAL) Differential, Automated (02/12/2022 12:30 AM EDT) Patholo gist Method Time Signature Neutrophils % 49.1 % [facility] Neutr Abs (ANC) 11.38 (H) 1.70 - [facility] 6.10 [facility] x10(3)/[facility] LABORATORY Lymphocytes % 8.6 % [facility] Lymphocytes Abs 2.0 0.9 - 3.2 [facility] x10(3)/[facility] LABORATORY Monocytes % 10.6 % [facility] Monocyte Abs 2.4 (H) 0.3 - 0.9 [facility] x10(3)/[facility] LABORATORY Eosinophils % 0.9 % [facility] Eosinophils Abs 0.2 0.0 - 0.4 [facility] x10(3)/[facility] LABORATORY Basophils % 0.3 % [facility] Basophils Abs 0.1 0.0 - 0.1 [facility] x10(3)/[facility] LABORATORY Immature Gran % 30.50 % [facility] Comment: Immature granulocytes(IG's)percentage an d absolute count will include metamyelocytes, myelocytes, and promyelo cytes. Blood smears from CBCs yielding IG's will be scanned manually for concor dance. If this scan disagrees with the automated IG or if promyelocytes are not ed, a manual differential will be performed. Gemini Gran Abs 7.06 (H) 0.00 - 0.04 x10(3)/[facility] LABORATORY Specimen Anatomical Collection Method Collection Time Receive d Time (Source) Location / / Volume Laterality Blood 02/12/2022 12:30 02/12/2022 1:03 AM EDT AM EDT Resulting Agency Comment Spec In Lab Kaitlyn Rock MD HEMATOLOGY ORDERABLES Performing Organization Address City/State/ZIP [place] [address] (ABNORMAL) Hemogram (02/12/2022 12:30 AM EDT) Analysis Performed At Patho logist Time Signature WBC 23.2 (H) 4.0 - 9.5 [facility] x10(3)/[facility] LABORATORY RBC 2.37 (L) 4.58 - [facility] 5.54 [facility] x10(6)/[facility] LABORATORY Hemoglobin 6.9 (L) 13.7 - [facility] 16.5 g/dL [facility] Hematocrit 20.7 (L) 40.5 - [facility] 48.5 % [facility] MCV 87.3 82.9 - [facility] 93.1 [facility]ORATORY MCH 29.1 27.5 - [facility] 32.1 pg [facility] MCHC 33.3 32.0 - [facility] 35.7 g/dL [facility] Platelets 166 145 - 357 [facility] x10(3)/[facility] LABORATORY RDWSD 49.0 (H) 36.0 - [facility] 45.0 [facility] RDWCV 15.5 (H) 11.4 - [facility] 13.8 % [facility] MPV 10.2 7.6 - 12.9 [facility] LABORATORY nRBC % Auto 0.0 % [facility] nRBC Abs Auto 0.000 0.000 - [facility] 0.000 [facility] x10(3)/[facility] LABORATORY Specimen Anatomical Collection Method Collection Time Receive d Time (Source) Location / / Volume Laterality Blood 02/12/2022 12:30 02/12/2022 1:03 AM EDT AM EDT Resulting Agency Comment Spec In Lab Kaitlyn Rock MD HEMATOLOGY ORDERABLES Performing Organization Address City/State/ZIP [place] [address] (ABNORMAL) Basic Metabolic Panel (non-fasting) (02/12/2022 12:30 AM EDT) athologist Signature Glucose Lvl 103 65 - 199 [facility] mg/dL [facility] Comment: Diabetes: >=200 mg/dL plus symp toms BUN 39 (H) 10 - 20 mg/dL [facility] Comment: result rechecked-EWR Creatinine 3.74 (H) 0.80 - 1.50 mg/dL [facility] Comment: result rechecked-EWR Sodium 127 (L) 135 - 145 mmol/L [facility] Potassium 4.4 3.5 - 5.0 mmol/L [facility] Comment: Please note: ??Patients with WBC >100,00 0 may have falsely elevated Potassium levels. ??For accurate Potassium quantif ication in these patients send serum separator tube (gold top) for subsequent determinations. ??Contact the Clinical Chemistry Laboratory if there are any qu estions. Chloride 99 98 - 107 mmol/L [facility] CO2 21 (L) 22 - 31 mmol/L [facility] Anion Gap 7 5 - 15 mmol/L [facility] Calcium 6.1 (Critical) 8.5 - 10.5 mg/dL [facility] Comment: Called by: CLAUDIA, Read back by: Jesus Robertson, Date/Time:02/12/22 02:00. Estimated GFR 21 (L) >=60 mL/min/1.73 m?? [facility] Comment: This patient's estimated [...] Novak MD CHEMISTRY ORDERABLES Performing Organization Address [facility] Phon e Number [address] Phosphorus (02/12/2022 12:30 AM EDT) P athologist Signature Phosphorus 2.7 2.5 - 4.5 [facility] mg/dL [facility] Specimen Anatomical Collection Method Collection Time Receive d Time (Source) Location / / Volume Laterality Blood 02/12/2022 12:30 02/12/2022 1:03 AM EDT AM EDT Resulting Agency Comment Spec In Lab Gela Novak MD CHEMISTRY ORDERABLES Performing Organization Address City/[facility]/ZIP [facility] Phon e Number [address] Magnesium (02/12/2022 12:30 AM EDT) P athologist Signature Magnesium 0.79 0.69 - 1.07 [facility] mmol/L [facility] Specimen Anatomical Collection Method Collection Time Receive d Time (Source) Location / / Volume Laterality Blood 02/12/2022 12:30 02/12/2022 1:03 AM EDT AM EDT Resulting Agency Comment Spec In Lab Gela Novak MD CHEMISTRY ORDERABLES Performing Organization Address City/[facility] [place] [address] (ABNORMAL) Albumin Level (02/12/2022 12:30 AM EDT) P athologist Signature Albumin 1.3 (L) 3.2 - 5.2 [facility] g/dL [facility] Specimen Anatomical Collection Method Collection Time Receive d Time (Source) Location / / Volume Laterality Blood 02/12/2022 12:30 02/12/2022 1:03 AM EDT AM EDT Resulting Agency Comment Spec In Lab Parrish Betancourt MD CHEMISTRY ORDERABLES Performing Organization Address City/State/ZIP Code Phon e Number [address] (ABNORMAL) Prealbumin (02/12/2022 12:30 AM EDT) athologist Signature Prealbumin 15 (L) 20 - 40 [facility] mg/dL [facility] Comment: Prealbumin levels are generally lower in the pediatric population; adult concentrations are usually attained near puberty. Specimen Anatomical Collection Method Collection Time Receive d Time (Source) Location / / Volume Laterality Blood 02/12/2022 12:30 02/12/2022 1:03 AM EDT AM EDT Resulting Agency Comment Spec In Lab Parrish Betancourt MD CHEMISTRY ORDERABLES Performing Organization Address City/[facility]/ZIP [facility] [place] [place] [address] SCAN DOC: LAB (02/12/2022 [...] who have questions please contact the health care associate that requested your imaging first. [...] ho have questions please contact the health care associate that requested your imaging first. Parrish Betancourt MD IMG MRI ORDERABLES (ABNORMAL) Sodium (02/11/2022 4:09 PM EDT) athologist Signature Sodium 129 (L) 135 - 145 [facility] mmol/L [facility] Specimen Anatomical Collection Method Collection Time Receive d Time (Source) Location / / Volume Laterality Blood 02/11/2022 4:09 PM 2 4:33 EDT PM EDT Resulting Agency Comment Spec In Lab Parrish Betancourt MD CHEMISTRY ORDERABLES Performing Organization Address City/State/ZIP [place] [address] (ABNORMAL) Sodium (02/11/2022 8:20 AM EDT) P athologist Signature Sodium 127 (L) 135 - 145 [facility] mmol/L [facility] Specimen Anatomical Collection Method Collection Time Receive d Time (Source) Location / / Volume Laterality Blood 02/11/2022 8:20 AM 2 8:39 EDT AM EDT Resulting Agency Comment Spec In Lab Parrish Betancourt MD CHEMISTRY ORDERABLES Performing Organization Address City/[facility]/[place] [address] Scan, Peripheral Blood (02/11/2022 12:37 AM EDT) [facility] Method Time Signature Plat Estimate Decreased [facility] RBC Morphology Abnormal [facility] Polychromasia Present >5/HPF [facility] Ovalocytes 1-5 /HPF [facility] Stippled RBCs Present >1/HPF [facility] Dohle Bodies Present [facility] Specimen Anatomical Collection Method Collection Time Receive d Time (Source) Location / / Volume Laterality Blood 02/11/2022 12:37 02/11/2022 AM EDT 12:47 AM EDT Resulting Agency Comment Spec In Lab Jeanette Escamilla APRN HEMATOLOGY ORDERABLES Performing Organization Address City/[facility]/[place] [address] Green Tube HOLD (02/11/2022 12:37 AM EDT) P athologist Signature Green Hold Sample in [facility] LABORATORY Specimen Anatomical Collection Method Collection Time Receive d Time (Source) Location / / Volume Laterality Blood Venous Draw / 02/11/2022 12:37 02/11/2022 Unknown AM EDT 12:48 AM EDT Jeanette Escamilla APRN CHEMISTRY ORDERABLES Performing Organization Address City/[facility]/[place] [address] (ABNORMAL) Differential, Automated (02/11/2022 12:37 AM EDT) [facility] Method Time Signature Neutrophils % 39.1 % [facility] Neutr Abs (ANC) 7.07 (H) 1.70 - [facility] 6.10 [facility] x10(3)/[facility] LABORATORY Lymphocytes % 12.7 % [facility] Lymphocytes Abs 2.3 0.9 - 3.2 [facility] x10(3)/[facility] LABORATORY Monocytes % 11.4 % [facility] Monocyte Abs 2.1 (H) 0.3 - 0.9 [facility] x10(3)/[facility] LABORATORY Eosinophils % 2.9 % [facility] Eosinophils Abs 0.5 (H) 0.0 - 0.4 [facility] x10(3)/[facility] LABORATORY Basophils % 0.5 % [facility] Basophils Abs 0.1 0.0 - 0.1 [facility] x10(3)/[facility] LABORATORY Immature Gran % 33.40 % [facility] Comment: Immature granulocytes(IG's)percentage an d absolute count will include metamyelocytes, myelocytes, and promyelo cytes. Blood smears from CBCs yielding IG's will be scanned manually for concor dance. If this scan disagrees with the automated IG or if promyelocytes are not ed, a manual differential will be performed. Gemini Gran Abs 6.04 (H) 0.00 - 0.04 x10(3)/[facility] LABORATORY Specimen Anatomical Collection Method Collection Time Receive d Time (Source) Location / / Volume Laterality Blood 02/11/2022 12:37 02/11/2022 AM EDT 12:47 AM EDT Resulting Agency Comment Spec In Lab Jeanette Escamilla APRN HEMATOLOGY ORDERABLES Performing Organization Address City/State/ZIP [place] [address] (ABNORMAL) Hemogram (02/11/2022 12:37 AM EDT) Analysis Performed At Patho logist Time Signature WBC 18.1 (H) 4.0 - 9.5 [facility] x10(3)/[facility] LABORATORY RBC 2.44 (L) 4.58 - [facility] 5.54 [facility] x10(6)/[facility] LABORATORY Hemoglobin 7.0 (L) 13.7 - [facility] 16.5 g/dL [facility] Hematocrit 21.0 (L) 40.5 - [facility] 48.5 % [facility] MCV 86.1 82.9 - [facility] 93.1 [facility]ORATORY MCH 28.7 27.5 - [facility] 32.1 pg [facility] MCHC 33.3 32.0 - [facility] 35.7 g/dL [facility] Platelets 140 (L) 145 - 357 [facility] x10(3)/[facility] LABORATORY RDWSD 50.0 (H) 36.0 - [facility] 45.0 [facility] LABORATORY RDWCV 15.9 (H) 11.4 - [facility] 13.8 % [facility] MPV 10.0 7.6 - 12.9 [facility] LABORATORY nRBC % Auto 0.0 % [facility] nRBC Abs Auto 0.000 0.000 - [facility] 0.000 [facility] x10(3)/[facility] LABORATORY Specimen Anatomical Collection Method Collection Time Receive d Time (Source) Location / / Volume Laterality Blood 02/11/2022 12:37 02/11/2022 AM EDT 12:47 AM EDT Resulting Agency Comment Spec In Lab Jeanette Escamilla APRN HEMATOLOGY ORDERABLES Performing Organization Address City/State/ZIP [place] [address] (ABNORMAL) Basic Metabolic Panel (non-fasting) (02/11/2022 12:37 AM EDT) P athologist Signature Glucose Lvl 125 65 - 199 [facility] mg/dL [facility] Comment: Diabetes: >=200 mg/dL plus symp toms BUN 23 (H) 10 - 20 mg/dL [facility]OR[facility]ORY Creatinine 2.42 (H) 0.80 - 1.50 mg/dL [facility] Sodium 128 (L) 135 - 145 mmol/L [facility] Potassium 3.8 3.5 - 5.0 mmol/L [facility] Comment: Please note: ??Patients with WBC >100,00 0 may have falsely elevated Potassium levels. ??For accurate Potassium quantif ication in these patients send serum separator tube (gold top) for subsequent determinations. ??Contact the Clinical Chemistry Laboratory if there are any qu estions. Chloride 96 (L) 98 - 107 mmol/L [facility] CO2 26 22 - 31 mmol/L [facility] Anion Gap 6 5 - 15 mmol/L [facility] Calcium 6.4 (Critical) 8.5 - 10.5 mg/dL [facility] Comment: Called by: kvng, Read back by: sakshi abreu, Date/Time:02/11/22 01:43.l Estimated GFR 36 (L) >=60 mL/min/1.73 m?? [facility] Comment: This patient's estimated [...] Organization Address City/State/ZIP [place] [address] (ABNORMAL) Phosphorus (02/11/2022 12:37 AM EDT) P athologist Signature Phosphorus 2.1 (L) 2.5 - 4.5 [facility] mg/dL [facility] Specimen Anatomical Collection Method Collection Time Receive d Time (Source) Location / / Volume Laterality Blood 02/11/2022 12:37 02/11/2022 AM EDT 12:47 AM EDT Resulting Agency Comment Spec In Lab Gela Novak MD CHEMISTRY ORDERABLES Performing Organization Address City/State/[place] [address] Magnesium (02/11/2022 12:37 AM EDT) athologist Signature Magnesium 0.75 0.69 - 1.07 [facility] LABORATORY Specimen Anatomical Collection Method Collection Time Receive d Time (Source) Location / / Volume Laterality Blood 02/11/2022 12:37 02/11/2022 AM EDT 12:47 AM EDT Resulting Agency Comment Spec In Lab Gela Novak MD CHEMISTRY ORDERABLES Performing Organization Address City/[facility]/[place] [address] (ABNORMAL) Sodium (02/10/2022 4:47 PM EDT) athologist Signature Sodium 132 (L) 135 - 145 [facility] mmol/L [facility] Specimen Anatomical Collection Method Collection Time Receive d Time (Source) Location / / Volume Laterality Blood 02/10/2022 4:47 PM 5:02 EDT PM EDT Resulting Agency Comment Spec In Lab Parrish Betancourt MD CHEMISTRY ORDERABLES Performing Organization Address City/[facility]/[place] [address] (ABNORMAL) Sodium (02/10/2022 9:05 AM EDT) athologist Signature Sodium 129 (L) 135 - 145 [facility] mmol/L [facility] Specimen Anatomical Collection Method Collection Time Receive d Time (Source) Location / / Volume Laterality Blood Venous Draw / 02/10/2022 9:05 AM 02/11/20 9:36 Unknown EDT AM EDT Resulting Agency Comment Spec In Lab Kaitlyn Rock MD CHEMISTRY ORDERABLES Performing Organization Address City/[facility]/ZIP Code Phon e Number [address] Scan, Peripheral Blood (02/10/2022 12:00 AM EDT) [facility] gist Method Time Signature Plat Estimate Decreased [facility] RBC Morphology Abnormal [facility] Polychromasia Present >5/HPF [facility] Ovalocytes 1-5 /HPF [facility] Angel Cells 1-5 /HPF [facility] Stippled RBCs Present >1/HPF [facility] Dohle Bodies Present [facility] Giant Platelets Less than 1 /HPF [facility] Specimen (Source) Anatomical Collection Method Collection Time Re ceived Time Location / / Volume Laterality Blood 02/10/2022 02/10/2022 12:4 0 AM EDT Resulting Agency Comment Spec In Lab Kaitlyn Rock MD HEMATOLOGY ORDERABLES Performing Organization Address City/State/ZIP Code Phon e Number [place] [id number]OS[address] LAB[address] (ABNORMAL) Differential, Automated (02/10/2022 12:00 AM EDT) [facility] gist Method Time Signature Neutrophils % 52.5 % [facility] Neutr Abs (ANC) 8.47 (H) 1.70 - [facility] 6.10 [facility] x10(3)/[facility] LABORATORY Lymphocytes % 12.2 % [facility] Lymphocytes Abs 2.0 0.9 - 3.2 [facility] x10(3)/[facility] LABORATORY Monocytes % 17.3 % [facility] Monocyte Abs 2.8 (H) 0.3 - 0.9 [facility] x10(3)/[facility] LABORATORY Eosinophils % 2.5 % [facility] Eosinophils Abs 0.4 0.0 - 0.4 [facility] x10(3)/[facility] LABORATORY Basophils % 0.4 % [facility] Basophils Abs 0.1 0.0 - 0.1 [facility] x10(3)/[facility] LABORATORY Immature Gran % 15.10 % [facility] LABORATORY Comment: Immature granulocytes(IG's)percentage an d absolute count will include metamyelocytes, myelocytes, and promyelo cytes. Blood smears from CBCs yielding IG's will be scanned manually for concor dannoe. If this scan disagrees with the automated IG or if promyelocytes are not ed, a manual differential will be performed. Gemini Gran Abs 2.44 (H) 0.00 - 0.04 x10(3)/[facility] LABORATORY Specimen (Source) Anatomical Collection Method Collection Time Re ceived Time Location / / Volume Laterality Blood 02/10/2022 02/10/2022 12:4 0 AM EDT Resulting Agency Comment Spec In Lab Kaitlyn Rock MD HEMATOLOGY ORDERABLES Performing Organization Address City/State/ZIP [place] [address] (ABNORMAL) Hemogram (02/10/2022 12:00 AM EDT) Analysis Performed At Patho logist Time Signature WBC 16.1 (H) 4.0 - 9.5 [facility] x10(3)/[facility] LABORATORY RBC 2.96 (L) 4.58 - [facility] 5.54 [facility] x10(6)/[facility] LABORATORY Hemoglobin 8.6 (L) 13.7 - [facility] 16.5 g/dL [facility] LABORATORY Hematocrit 25.2 (L) 40.5 - [facility] 48.5 % [facility] LABORATORY MCV 85.1 82.9 - [facility] 93.1 [facility] LABORATORY MCH 29.1 27.5 - [facility] MANDO 32.1 pg [facility] LABORATORY MCHC 34.1 32.0 - [facility] 35.7 g/dL [facility] LABORATORY Platelets 121 (L) 145 - 357 [facility] x10(3)/[facility] LABORATORY RDWSD 50.4 (H) 36.0 - [facility] 45.0 [facility] LABORATORY RDWCV 16.4 (H) 11.4 - [facility] MANDO 13.8 % [facility] LABORATORY MPV 10.6 7.6 - 12.9 [facility] LABORATORY nRBC % Auto 0.0 % [facility] LABORATORY nRBC Abs Auto 0.000 0.000 - [facility] 0.000 [facility] x10(3)/[facility] LABORATORY Specimen (Source) Anatomical Collection Method Collection Time Re ceived Time Location / / Volume Laterality Blood 02/10/2022 02/10/2022 12:4 0 AM EDT Resulting Agency Comment Spec In Lab Kaitlyn Rock MD HEMATOLOGY ORDERABLES Performing Organization Address City/State/ZIP Code Phon e Number [address] Phosphorus (02/10/2022 12:00 AM EDT) P athologist Signature Phosphorus 3.1 2.5 - 4.5 [facility] mg/dL [facility] LABORATORY Specimen (Source) Anatomical Collection Method Collection Time Re ceived Time Location / / Volume Laterality Blood 02/10/2022 02/10/2022 12:4 0 AM EDT Resulting Agency Comment Spec In Lab Gela Novak MD CHEMISTRY ORDERABLES Performing Organization Address City/[facility]/ZIP Code Phon e Number [address] Magnesium (02/10/2022 12:00 AM EDT) athologist Signature Magnesium 0.87 0.69 - 1.07 [facility] mmol/L [facility] LABORATORY Specimen (Source) Anatomical Collection Method Collection Time Re ceived Time Location / / Volume Laterality Blood 02/10/2022 02/10/2022 12:4 0 AM EDT Resulting Agency Comment Spec In Lab Gela Novak MD CHEMISTRY ORDERABLES Performing Organization Address City/[facility]/[place] [address] (ABNORMAL) Basic Metabolic Panel (non-fasting) (02/10/2022 12:00 AM EDT) P athologist Signature Glucose Lvl 164 65 - 199 [facility] mg/dL [facility] LABORATORY Comment: Diabetes: >=200 mg/dL plus symp toms BUN 21 (H) 10 - 20 mg/dL [facility] LABORATORY Creatinine 1.89 (H) 0.80 - 1.50 mg/dL [facility] LABORATORY Sodium 130 (L) 135 - 145 mmol/L [facility] LABORATORY Potassium 3.9 3.5 - 5.0 mmol/L [facility] LABORATORY Comment: Please note: ??Patients with WBC >100,00 0 may have falsely elevated Potassium levels. ??For accurate Potassium quantif ication in these patients send serum separator tube (gold top) for subsequent determinations. ??Contact the Clinical Chemistry Laboratory if there are any qu estions. Chloride 96 (L) 98 - 107 mmol/L [facility] LABORATORY CO2 22 22 - 31 mmol/L [facility] LABORATORY Anion Gap 12 5 - 15 mmol/L [facility] LABORATORY Calcium 7.2 (L) 8.5 - 10.5 mg/dL [facility] LABORATORY Estimated GFR 48 (L) >=60 mL/min/1.73 m?? [facility] LABORATORY Comment: This patient's estimated [...] Organization Address City/State/ZIP [place] [address] (ABNORMAL) Blood Gas Arterial ([facility]) (02/09/2022 5:43 PM EDT) Analysis Performed At Patho logist Time Signature pH Art 7.46 (H) 7.35 - [facility] 7.45 [facility] LABORATORY pCO2 Art 35 35 - 45 [facility] LABORATORY pO2 Art 73 (L) 85 - 104 [facility] HOSPITAL LABORATORY HCO3 Art 24.8 20.0 - [facility] 26.0 [facility] mmol/L [facility] LABORATORY BE Art 1.1 -3.0 - 3.0 [facility] mmol/L [facility] LABORATORY Hgb Blood Gas 9.2 (L) 13.7 - [facility] 16.5 g/dL [facility] LABORATORY O2HB Art 94.9 94.0 - [facility] 97.0 % [facility] LABORATORY COHB Art 0.5 % [facility] LABORATORY Comment: Nonsmokers: ??0.5-1.5% COHB Smokers: ??Variable, but usually less th an 10% Toxic: 20 - 30% COHB Lethal: ??Greater than 60% COHB METHB Art 0.3 <=1.5 % [facility] LABORATORY Na Whole Blood 126 (L) 135 - 145 mmol/L [facility] LABORATORY K Whole Blood 4.2 3.5 - 5.0 mmol/L [facility] LABORATORY Comment: Please note: ??Patients with WBC >100,00 0 may have falsely elevated Potassium levels. ??Contact the Clinical Chemistry Laboratory if there are any questions. ICa Whole Blood 1.12 (L) 1.15 - 1.33 mmol/L [facility] LABORATORY Comment: Note: ??Total bilirubin higher than 20 m g/dL may lead to falsely low ionized calcium. CL Whole Blood 100 98 - 107 mmol/L [facility] LABORATORY Gluc Whole Bld 97 65 - 199 mg/dL [facility] LABORATORY Comment: Diabetes: >=200 mg/dL plus symp toms. Lactate WB 1.1 0.5 - 2.2 mmol/L [facility] LABORATORY Specimen Anatomical Collection Method Collection Time Receive d Time (Source) Location / / Volume Laterality Blood Arterial Draw / 02/09/2022 5:43 PM 2021 5:43 Unknown EDT PM EDT Resulting Agency Comment Spec In Lab Kaitlyn Rock MD CHEMISTRY ORDERABLES Performing Organization Address City/State/ZIP [place] [address] Phosphorus (02/09/2022 5:35 PM EDT) athologist Signature Phosphorus 3.2 2.5 - 4.5 [facility] mg/dL [facility] LABORATORY Specimen Anatomical Collection Method Collection Time Receive d Time (Source) Location / / Volume Laterality Blood 02/09/2022 5:35 PM 2 5:44 EDT PM EDT Resulting Agency Comment Spec In Lab Parrish Betancourt MD CHEMISTRY ORDERABLES Performing Organization Address City/[facility]/[place] [address] (ABNORMAL) Electrolytes panel (02/09/2022 5:35 PM EDT) athologist Signature Sodium 132 (L) 135 - 145 [facility] mmol/L [facility] LABORATORY Potassium 4.3 3.5 - 5.0 [facility] mmol/L [facility] LABORATORY Comment: Please note: ??Patients with WBC >100,00 0 may have falsely elevated Potassium levels. ??For accurate Potassium quantif ication in these patients send serum separator tube (gold top) for subsequent determinations. ??Contact the Clinical Chemistry Laboratory if there are any qu estions. Chloride 100 98 - 107 mmol/L [facility] LABORATORY CO2 21 (L) 22 - 31 mmol/L [facility] LABORATORY Anion Gap 11 5 - 15 mmol/L [facility] LABORATORY Specimen Anatomical Collection Method Collection Time Receive d Time (Source) Location / / Volume Laterality Blood 02/09/2022 5:35 PM 2 5:44 EDT PM EDT Resulting Agency Comment Spec In Lab Parrish Betancourt MD CHEMISTRY ORDERABLES Performing Organization Address City/[facility]/[place] [address] (ABNORMAL) Sodium (02/09/2022 5:35 PM EDT) athologist Signature Sodium 132 (L) 135 - 145 [facility] mmol/L [facility] LABORATORY Specimen Anatomical Collection Method Collection Time Receive d Time (Source) Location / / Volume Laterality Blood 02/09/2022 5:35 PM 2 5:44 EDT PM EDT Resulting Agency Comment Spec In Lab Parrish Betancourt MD CHEMISTRY ORDERABLES Performing Organization Address City/[facility]/[place] [address] Anaerobic Culture (02/09/2022 4:26 PM EDT) [facility] Method Time Signature Anaerobic No anaerobic [facility] Culture organisms [facility] LABORATORY Specimen Anatomical Collection Method Collection Time Receive d Time (Source) Location / / Volume Laterality Thigh 02/09/2022 4:26 PM 2 5:23 EDT PM EDT Comment: Left thigh Resulting Agency Comment Spec In Lab Jeanette Chatterjee MD MICROBIOLOGY - GENERAL ORDER JT Performing Organization Address [facility] [place] [address] (ABNORMAL) Tissue culture (02/09/2022 4:26 PM EDT) Component Value Ref Test Analysis Performed At [facility] Range Method Time Signature Tissue Few Pseudomonas aeruginosa MAR Y Culture Few Serratia marcescens [facility] OCK Susceptibilities previously reported [facility] LABORATORY Gram Stain Many Neutrophils seen [facility] Moderate Gram Negative Rods seen MIMS Results called to and read back by Lilibeth Dial RN [facility] 02/09/22 18:20:09 [facility] ( LABORATORY Organism Pseudomonas [facility] aeruginosa (A) [facility] LABORATORY Organism Serratia marcescens [facility] (A) [facility] LABORATORY Organism Gram Negative Rods [facility] (A) [facility] LABORATORY Specimen Anatomical Collection Method Collection Time Receive d Time (Source) Location / / Volume Laterality Thigh 02/09/2022 4:26 PM 2 5:23 EDT PM EDT Comment: Left thigh Resulting Agency Comment Spec In Lab Jeanette Chatterjee MD MICROBIOLOGY - GENERAL ORDER JT Performing Organization Address City/[facility]/ZIP [facility] [place] [address] (ABNORMAL) Sodium (02/09/2022 12:29 PM EDT) athologist Signature Sodium 132 (L) 135 - 145 [facility] mmol/L [facility] LABORATORY Specimen Anatomical Collection Method Collection Time Receive d Time (Source) Location / / Volume Laterality Blood 02/09/2022 12:29 02/09/2022 PM EDT 12:29 PM EDT Resulting Agency Comment Spec In Lab Parrish Betancourt MD CHEMISTRY ORDERABLES Performing Organization Address City/State/ZIP [place] [address] (ABNORMAL) Blood Gas Arterial ([facility]) (02/09/2022 12:20 PM EDT) Analysis Performed At Patho logist Time Signature pH Art 7.47 (H) 7.35 - [facility] 7.45 [facility] LABORATORY pCO2 Art 33 (L) 35 - 45 [facility] mmHg [facility] LABORATORY pO2 Art 105 (H) 85 - 104 [facility] LABORATORY HCO3 Art 23.6 20.0 - [facility] 26.0 [facility] mmol/L [facility] LABORATORY BE Art -0.1 -3.0 - 3.0 [facility] mmol/L [facility] LABORATORY Hgb Blood Gas 9.6 (L) 13.7 - [facility] 16.5 g/dL [facility] O2HB Art 97.2 (H) 94.0 - [facility] 97.0 % [facility] LABORATORY COHB Art 0.8 % [facility] LABORATORY Comment: Nonsmokers: ??0.5-1.5% COHB Smokers: ??Variable, but usually less th an 10% Toxic: 20 - 30% COHB Lethal: ??Greater than 60% COHB METHB Art 0.3 <=1.5 % [facility] LABORATORY Na Whole Blood 126 (L) 135 - 145 mmol/L [facility] LABORATORY K Whole Blood 4.2 3.5 - 5.0 mmol/L [facility] LABORATORY Comment: Please note: ??Patients with WBC >100,00 0 may have falsely elevated Potassium levels. ??Contact the Clinical Chemistry Laboratory if there are any questions. ICa Whole Blood 1.16 1.15 - 1.33 mmol/L [facility] LABORATORY Comment: Note: ??Total bilirubin higher than 20 m g/dL may lead to falsely low ionized calcium. CL Whole Blood 99 98 - 107 mmol/L [facility] LABORATORY Gluc Whole Bld 97 65 - 199 mg/dL [facility] LABORATORY Comment: Diabetes: >=200 mg/dL plus symp toms. Lactate WB 1.1 0.5 - 2.2 mmol/L [facility] LABORATORY FIO2 Art 21 % [facility] LABORATORY PF Ratio Art [address] [facility] LABORATORY Temp Art 36.6 Celsius [facility] LABORATORY Specimen Anatomical Collection Method Collection Time Receive d Time (Source) Location / / Volume Laterality Blood Arterial Draw / 02/09/2022 12:20 02/10/20 22 Unknown PM EDT 12:27 PM EDT Resulting Agency Comment Spec In Lab Kaitlyn Rock MD CHEMISTRY ORDERABLES Performing Organization Address [facility] Phon e Number [address] Phosphorus (02/09/2022 10:08 AM EDT) P athologist Signature Phosphorus 3.1 2.5 - 4.5 [facility] mg/dL [facility] LABORATORY Specimen Anatomical Collection Method Collection Time Receive d Time (Source) Location / / Volume Laterality Blood 02/09/2022 10:08 02/09/2022 AM EDT 10:34 AM EDT Resulting Agency Comment Spec In Lab Parrish Betancourt MD CHEMISTRY ORDERABLES Performing Organization Address City/[facility]/ZIP Code Phon e Number [address] Phosphorus (02/09/2022 6:25 AM EDT) P athologist Signature Phosphorus 2.6 2.5 - 4.5 [facility] mg/dL [facility] LABORATORY Specimen Anatomical Collection Method Collection Time Receive d Time (Source) Location / / Volume Laterality Blood 02/09/2022 6:25 AM 6:48 EDT AM EDT Resulting Agency Comment Spec In Lab Parrish Betancourt MD CHEMISTRY ORDERABLES Performing Organization Address City/[facility] Phon e Number [address] (ABNORMAL) Sodium (02/09/2022 6:25 AM EDT) P athologist Signature Sodium 130 (L) 135 - 145 [facility] mmol/L [facility] LABORATORY Specimen Anatomical Collection Method Collection Time Receive d Time (Source) Location / / Volume Laterality Blood 02/09/2022 6:25 AM 2 6:48 EDT AM EDT Resulting Agency Comment Spec In Lab Parrish Betancourt MD CHEMISTRY ORDERABLES Performing Organization Address City/State/ZIP Code Phon e Number [address] Transfuse RBC (02/09/2022 5:45 AM EDT) Parrish Betancourt MD NURSING TREATMENT ORDERABLES - BLOOD ADMIN Transfuse RBC (02/09/2022 5:45 AM EDT) Parrish eBtancourt MD NURSING TREATMENT ORDERABLES - BLOOD ADMIN Type and Screen Validity (02/09/2022 2:30 AM EDT) [facility] Method Time Signature T&S only valid [facility] LABORATORY Comment: This Type and Screen result is only valid at the [facility] Specimen Anatomical Collection Method Collection Time Receive d Time (Source) Location / / Volume Laterality Blood 02/09/2022 2:30 AM 2 2:47 EDT AM EDT Resulting Agency Comment Spec In Lab Thomas Daniel MD BLOOD BANK ORDERABLES Performing Organization Address City/State/ZIP [place] [address] [facility] LAB[address]ORY Drive ABORH Recheck Status (02/09/2022 2:30 AM EDT) [facility] gist Method Time Signature ABORH Type Completed [facility] LABORATORY Specimen Anatomical Collection Method Collection Time Receive d Time (Source) Location / / Volume Laterality Blood 02/09/2022 2:30 AM 2 2:47 EDT AM EDT Resulting Agency Comment Spec In Lab Thomas Daniel MD BLOOD BANK ORDERABLES Performing Organization Address City/[facility]/[place] [address] Antibody screen (02/09/2022 2:30 AM EDT) Patholo gist Method Time Signature Ab Screen Negative [facility] LABORATORY Expires at 02/12/2022 [facility] [id number] on: [facility] LABORATORY Specimen Anatomical Collection Method Collection Time Receive d Time (Source) Location / / Volume Laterality Blood 02/09/2022 2:30 AM 2 2:47 EDT AM EDT Resulting Agency Comment Spec In Lab Thomas Daniel MD BLOOD BANK ORDERABLES Performing Organization Address City/[facility]/ZIP Code Phon e Number [address] ABO/Rh Typing (02/09/2022 2:30 AM EDT) P athologist Signature ABORh Type A Pos [facility] LABORATORY Specimen Anatomical Collection Method Collection Time Receive d Time (Source) Location / / Volume Laterality Blood 02/09/2022 2:30 AM 2 2:47 EDT AM EDT Resulting Agency Comment Spec In Lab Thomas Daniel MD BLOOD BANK ORDERABLES Performing Organization Address City/[facility]/ZIP Code Phon e Number [address] Prepare RBC (02/09/2022 2:20 AM EDT) P athologist Signature Dispensed? Yes [facility] LABORATORY Specimen Anatomical Collection Method Collection Time Receive d Time (Source) Location / / Volume Laterality Blood 02/09/2022 2:20 AM 2 2:21 EDT AM EDT Parrish Betancourt MD BLOOD BANK ORDERABLES Performing Organization Address City/[facility]/[place] [address] (ABNORMAL) BLOOD GAS 2 ARTERIAL (02/09/2022 1:02 AM EDT) Analysis Performed At Patho logist Time Signature pH Art 7.49 (H) 7.35 - [facility] 7.45 [facility] LABORATORY pCO2 Art 30 (L) 35 - 45 [facility] LABORATORY pO2 Art 92 85 - 104 [facility] LABORATORY HCO3 Art 22.5 20.0 - [facility] 26.0 [facility] mmol/L [facility] LABORATORY BE Art -0.9 -3.0 - 3.0 [facility] mmol/L [facility] LABORATORY Hgb Blood Gas 8.1 (L) 13.7 - [facility] 16.5 g/dL [facility] O2HB Art 95.1 94.0 - [facility] 97.0 % [facility] LABORATORY COHB Art 0.3 % [facility] LABORATORY Comment: Nonsmokers: 0.5-1.5% COHB Smokers: Variable, but usually less than 10% Toxic: 20-30% COHB Lethal: Greater than 60% COHB METHB Art 1.0 <=1.5 % [facility] LABORATORY Na Whole Blood 122 (L) 135 - 145 mmol/L [facility] LABORATORY K Whole Blood 3.9 3.5 - 5.0 mmol/L [facility] LABORATORY Comment: Please note: Patients with WBC >100,000 may have falsely elevated Potassium levels. Contact the Clinical Chemistry L aboratory if there are any questions. ICa Whole Blood 1.18 1.15 - 1.33 mmol/L [facility] LABORATORY Comment: Note: ??Total bilirubin higher than 20 m g/dL may lead to falsely low ionized calcium. CL Whole Blood 98 98 - 107 mmol/L [facility] LABORATORY Gluc Whole Bld 125 65 - 199 mg/dL [facility] LABORATORY Comment: Diabetes: >=200 mg/dL plus symp toms. Lactate WB 2.2 0.5 - 2.2 mmol/L [facility] LABORATORY Specimen Anatomical Collection Method Collection Time Receive d Time (Source) Location / / Volume Laterality Blood 02/09/2022 1:02 AM 1:02 EDT AM EDT Parrish Betancourt MD CHEMISTRY ORDERABLES Performing Organization Address City/State/ZIP Code Ph[place] [address] Scan, Peripheral Blood (02/09/2022 12:55 AM EDT) [facility] [employer] Method Time Signature Plat Estimate Decreased [facility] LABORATORY RBC Morphology Abnormal [facility] Polychromasia Present >5/HPF [facility] LABORATORY Ovalocytes 1-5 /HPF [facility] LABORAT[facility] Angel Cells 1-5 /HPF [facility] LABORATORY Stippled RBCs Present >1/HPF [facility] LABORATORY Pappenheimer Bdy Present >1/HPF [facility] LABORATORY Dohle Bodies Present [facility] LABORATORY Giant Platelets Less than 1 /HPF [facility] LABORATORY Specimen Anatomical Collection Method Collection Time Receive d Time (Source) Location / / Volume Laterality Blood 02/09/2022 12:55 02/09/2022 1:07 AM EDT AM EDT Resulting Agency Comment Spec In Lab Kaitlyn Rock MD HEMATOLOGY ORDERABLES Performing Organization Address City/State/[place] [address] (ABNORMAL) Differential, Automated (02/09/2022 12:55 AM EDT) [facility] [employer] Method Time Signature Neutrophils % 57.4 % [facility] LABORATORY Neutr Abs (ANC) 7.26 (H) 1.70 - [facility] 6.10 [facility] x10(3)/[facility] LABORATORY Lymphocytes % 10.1 % [facility] LABORATORY Lymphocytes Abs 1.3 0.9 - 3.2 [facility] x10(3)/[facility] LABORATORY Monocytes % 17.7 % [facility] LABORATORY Monocyte Abs 2.2 (H) 0.3 - 0.9 [facility] x10(3)/[facility] LABORATORY Eosinophils % 1.3 % [facility] LABORATORY Eosinophils Abs 0.2 0.0 - 0.4 [facility] x10(3)/[facility] LABORATORY Basophils % 0.4 % [facility] LABORATORY Basophils Abs 0.0 0.0 - 0.1 [facility] x[facility](3[facility] LABORATORY Immature Gran % 13.10 % [facility] LABORATORY Comment: Immature granulocytes(IG's)percentage an d absolute count will include metamyelocytes, myelocytes, and promyelo cytes. Blood smears from CBCs yielding IG's will be scanned manually for concor dance. If this scan disagrees with the automated IG or if promyelocytes are not ed, a manual differential will be performed. Gemini Gran Abs 1.65 (H) 0.00 - 0.04 x10(3)/[facility] LABORATORY Specimen Anatomical Collection Method Collection Time Receive d Time (Source) Location / / Volume Laterality Blood 02/09/2022 12:55 02/09/2022 1:07 AM EDT AM EDT Resulting Agency Comment Spec In Lab Kaitlyn Rock MD HEMATOLOGY ORDERABLES Performing Organization Address City/State/ZIP [place] [address] (ABNORMAL) Hemogram (02/09/2022 12:55 AM EDT) [facility] gist Method Time Signature WBC 12.6 (H) 4.0 - 9.5 [facility] x10(3)/[facility] LABORATORY RBC 2.46 (L) 4.58 - [facility] 5.54 [facility] x10(6)/[facility] LABORATORY Hemoglobin 7.1 (L) 13.7 - [facility] 16.5 g/dL [facility] Hematocrit 20.7 (L) 40.5 - [facility] MANDO 48.5 % [facility] MCV 84.1 82.9 - [facility] MANDO 93.1 [facility] LABORATORY MCH 28.9 27.5 - JOS[facility] MANDO 32.1 pg [facility] MCHC 34.3 32.0 - [facility] MANDO 35.7 g/dL [facility] Platelets 97 (L) 145 - 357 [facility] x10(3)/[facility] LABORATORY RDWSD 49.4 (H) 36.0 - [facility] MANDO 45.0 [facility] LABORATORY RDWCV 17.8 (H) 11.4 - [facility] MANDO 13.8 % [facility] MPV 9.8 7.6 - 12.9 [facility] LABORATORY nRBC % Auto 0.2 % [facility] nRBC Abs Auto 0.020 (H) 0.000 - [facility] 0.000 [facility] x10(3)/[facility] LABORATORY Specimen Anatomical Collection Method Collection Time Receive d Time (Source) Location / / Volume Laterality Blood 02/09/2022 12:55 02/09/2022 1:07 AM EDT AM EDT Resulting Agency Comment Spec In Lab Kaitlyn Rock MD HEMATOLOGY ORDERABLES Performing Organization Address City/State/ZIP [place] [address] (ABNORMAL) Basic Metabolic Panel (non-fasting) (02/09/2022 12:55 AM EDT) P athologist Signature Glucose Lvl 128 65 - 199 [facility] mg/dL [facility] Comment: Diabetes: >=200 mg/dL plus symp toms BUN 26 (H) 10 - 20 mg/dL [facility] Creatinine 2.46 (H) 0.80 - 1.50 mg/dL [facility] Sodium 126 (L) 135 - 145 mmol/L [facility] Potassium 4.2 3.5 - 5.0 mmol/L [facility] Comment: Please note: ??Patients with WBC >100,00 0 may have falsely elevated Potassium levels. ??For accurate Potassium quantif ication in these patients send serum separator tube (gold top) for subsequent determinations. ??Contact the Clinical Chemistry Laboratory if there are any qu estions. Chloride 95 (L) 98 - 107 mmol/L [facility] CO2 22 22 - 31 mmol/L [facility] Anion Gap 9 5 - 15 mmol/L [facility] Calcium 7.7 (L) 8.5 - 10.5 mg/dL [facility] Estimated GFR 35 (L) >=60 mL/min/1.73 m?? [facility] Comment: This patient's estimated [...] Novak MD CHEMISTRY ORDERABLES Performing Organization Address City/[facility]/ZIP Code Phon e Number [address] (ABNORMAL) Phosphorus (02/09/2022 12:55 AM EDT) P athologist Signature Phosphorus 2.3 (L) 2.5 - 4.5 [facility] MANDO mg/dL [facility] Specimen Anatomical Collection Method Collection Time Receive d Time (Source) Location / / Volume Laterality Blood 02/09/2022 12:55 02/09/2022 1:07 AM EDT AM EDT Resulting Agency Comment Spec In Lab Gela Novak MD CHEMISTRY ORDERABLES Performing Organization Address City/[facility]/[place] [address] Magnesium (02/09/2022 12:55 AM EDT) P athologist Signature Magnesium 0.94 0.69 - 1.07 [facility] [place] mmol/L [facility] Specimen Anatomical Collection Method Collection Time Receive d Time (Source) Location / / Volume Laterality Blood 02/09/2022 12:55 02/09/2022 1:07 AM EDT AM EDT Resulting Agency Comment Spec In Lab Gela Novak MD CHEMISTRY ORDERABLES Performing Organization Address City/[facility]/ZIP Code Phon e Number JOSH [address] Scan, Peripheral Blood (02/08/2022 6:00 PM EDT) [facility] Method Time Signature Plat Estimate Decreased [facility] RBC Morphology Abnormal [facility] Macrocytes 1-5 /HPF [facility] Microcytes 1-5 /HPF [facility] Polychromasia Present >5/HPF [facility] Ovalocytes 1-5 /HPF [facility] Cambria Cells 1-5 /HPF [facility] Stippled RBCs Present >1/HPF [facility] Pappenheimer Bdy Present >1/HPF [facility] Dohle Bodies Present [facility] Giant Platelets Less than 1 /HPF [facility] Specimen Anatomical Collection Method Collection Time Receive d Time (Source) Location / / Volume Laterality Blood 02/08/2022 6:00 PM 6:21 EDT PM EDT Resulting Agency Comment Spec In Lab Rogers Solano APRN HEMATOLOGY ORDERABLES Performing Organization Address City/State/ZIP Code Phon e Number [address] (ABNORMAL) Differential, Automated (02/08/2022 6:00 PM EDT) [facility] Method Time Signature Neutrophils % 64.6 % [facility] Neutr Abs (ANC) 7.81 (H) 1.70 - [facility] 6.10 [facility] x10(3)/[facility] LABORATORY Lymphocytes % 7.2 % [facility] Lymphocytes Abs 0.9 0.9 - 3.2 [facility] x10(3)/[facility] LABORATORY Monocytes % 14.2 % [facility] Monocyte Abs 1.7 (H) 0.3 - 0.9 [facility] x10(3)/[facility] LABORATORY Eosinophils % 1.3 % [facility] Eosinophils Abs 0.2 0.0 - 0.4 [facility] x10(3)/[facility] LABORATORY Basophils % 0.5 % [facility] Basophils Abs 0.1 0.0 - 0.1 [facility] x10(3)/[facility] LABORATORY Immature Gran % 12.20 % [facility] Comment: Immature granulocytes(IG's)percentage an d absolute count will include metamyelocytes, myelocytes, and promyelo cytes. Blood smears from CBCs yielding IG's will be scanned manually for concor dance. If this scan disagrees with the automated IG or if promyelocytes are not ed, a manual differential will be performed. Gemini Gran Abs 1.48 (H) 0.00 - 0.04 x10(3)/[facility] LABORATORY Specimen Anatomical Collection Method Collection Time Receive d Time (Source) Location / / Volume Laterality Blood 02/08/2022 6:00 PM 6:21 EDT PM EDT Resulting Agency Comment Spec In Lab Rogers Solano APRN HEMATOLOGY ORDERABLES Performing Organization Address City/State/ZIP Code Phon e Number [place] [id number] HOSPITAL LAB[address]ORY Drive (ABNORMAL) Hemogram (02/08/2022 6:00 PM EDT) [facility] gist Method Time Signature WBC 12.1 (H) 4.0 - 9.5 [facility] x10(3)/[facility] LABORATORY RBC 2.57 (L) 4.58 - [facility] 5.54 [facility] x10(6)/[facility] LABORATORY Hemoglobin 7.5 (L) 13.7 - [facility] 16.5 g/dL [facility] Hematocrit 21.6 (L) 40.5 - [facility] 48.5 % [facility] MCV 84.0 82.9 - [facility] 93.1 fL [facility] MCH 29.2 27.5 - [facility] 32.1 pg [facility] MCHC 34.7 32.0 - [facility] 35.7 g/dL [facility] Platelets 80 (L) 145 - 357 [facility] x10(3)/[facility] LABORATORY RDWSD 48.9 (H) 36.0 - [facility] 45.0 [facility] LABORATORY RDWCV 17.9 (H) 11.4 - [facility] 13.8 % [facility] MPV 10.1 7.6 - 12.9 [facility] LABORATORY nRBC % Auto 0.2 % [facility] nRBC Abs Auto 0.020 (H) 0.000 - [facility] 0.000 [facility] x10(3)/[facility] LABORATORY Specimen Anatomical Collection Method Collection Time Receive d Time (Source) Location / / Volume Laterality Blood 02/08/2022 6:00 PM 6:21 EDT PM EDT Resulting Agency Comment Spec In Lab Rogers Solano APRN HEMATOLOGY ORDERABLES Performing Organization Address City/State/ZIP [place] [address] (ABNORMAL) Blood Gas Arterial ([facility]) (02/08/2022 6:00 PM EDT) Analysis Performed At Patho logist Time Signature pH Art 7.46 (H) 7.35 - [facility] 7.45 [facility] pCO2 Art 32 (L) 35 - 45 [facility] LABORATORY pO2 Art 89 85 - 104 [facility] LABORATORY HCO3 Art 22.4 20.0 - [facility] 26.0 [facility] mmol/[facility] LABORATORY BE Art -1.4 -3.0 - 3.0 [facility] mmol/L [facility] Hgb Blood Gas 8.0 (L) 13.7 - [facility] 16.5 g/dL [facility] O2HB Art 95.8 94.0 - [facility] 97.0 % [facility] COHB Art 0.8 % [facility] Comment: Nonsmokers: ??0.5-1.5% COHB Smokers: ??Variable, but usually less th an 10% Toxic: 20 - 30% COHB Lethal: ??Greater than 60% COHB METHB Art 0.0 <=1.5 % [facility] LABORATORY Na Whole Blood 124 (L) 135 - 145 mmol/L [facility] K Whole Blood 4.7 3.5 - 5.0 mmol/L [facility] Comment: Please note: ??Patients with WBC >100,00 0 may have falsely elevated Potassium levels. ??Contact the Clinical Chemistry Laboratory if there are any questions. ICa Whole Blood 1.21 1.15 - 1.33 mmol/L [facility] Comment: Note: ??Total bilirubin higher than 20 m g/dL may lead to falsely low ionized calcium. CL Whole Blood 99 98 - 107 mmol/L [facility] Gluc Whole Bld 84 65 - 199 mg/dL [facility] LAB[facility]ORY Comment: Diabetes: >=200 mg/dL plus symp toms. Lactate WB 1.2 0.5 - 2.2 mmol/L [facility] LABOR[facility]ORY Specimen Anatomical Collection Method Collection Time Receive d Time (Source) Location / / Volume Laterality Blood Arterial Draw / 02/08/2022 6:00 PM 2021 6:18 Unknown EDT PM EDT Resulting Agency Comment Spec In Lab Kaitlyn Rock MD CHEMISTRY ORDERABLES Performing Organization Address City/State/[place] [address] (ABNORMAL) Sodium (02/08/2022 6:00 PM EDT) P athologist Signature Sodium 129 (L) 135 - 145 [facility] mmol/L [facility] Specimen Anatomical Collection Method Collection Time Receive d Time (Source) Location / / Volume Laterality Blood 02/08/2022 6:00 PM 6:21 EDT PM EDT Resulting Agency Comment Spec In Lab Parrish Betancourt MD CHEMISTRY ORDERABLES Performing Organization Address City/State/ZIP Code Phon e Number [address] POCT Glucose (02/08/2022 5:56 PM EDT) P athologist Signature POC Glucose 92 65 - 199 [facility] mg/dL [facility] Comment: Supplemental ranges: <140 mg/dL before meals <180 mg/dL all other times of the day Specimen Anatomical Collection Method Collection Time Receive d Time (Source) Location / / Volume Laterality Blood 02/08/2022 5:56 PM 5:56 EDT PM EDT Parrish Betancourt MD POINT OF CARE TEST ORDERABLE S Performing Organization Address City/[facility]/[place] [address] Anaerobic Culture (02/08/2022 4:13 PM EDT) [employer] Method Time Signature Anaerobic No anaerobic [facility] Culture organisms [facility] LABORATORY Specimen Anatomical Collection Method Collection Time Receive d Time (Source) Location / / Volume Laterality Deep Wound STRUCTURE OF LEFT 02/08/2022 4:13 PM 01/29 4:33 THIGH / Unknown EDT PM EDT Comment: Left thigh #2 Resulting Agency Comment Spec In Lab Jeanette Chatterjee MD MICROBIOLOGY - GENERAL ORDER JT Performing Organization Address City/[facility]/[place] [address] (ABNORMAL) Abscess/Wound Aspirate Culture (02/08/2022 4:13 PM EDT) [employer] Method Time Signature Abscess/Wound Many Pseudomonas aeruginosa [facility] Aspirate Many Serratia marcescens [facility] () [facility] Gram Stain Many Neutrophils seen J[facility] Many Gram Negative Rods seen [facility] ([facility]ORY Organism Pseudomonas [facility] aeruginosa (A) [facility]OR[facility] Organism Serratia J[facility] marcescens (A) [facility] LABOR[facility]ORY Organism Gram Negative [facility] Rods (A) [facility] Specimen Anatomical Collection Method Collection Time [...] Organization Address City/State/ZIP [place] [address] Anaerobic Culture (02/08/2022 4:13 PM EDT) [facility] Method Time Signature Anaerobic No anaerobic [facility] Culture organisms [facility] LABORATORY Specimen Anatomical Collection Method Collection Time Receive d Time (Source) Location / / Volume Laterality Deep Wound STRUCTURE OF LEFT 02/08/2022 4:13 PM 01/29 4:32 THIGH / Unknown EDT PM EDT Comment: Left thigh #1 Resulting Agency Comment Spec In Lab Jeanette Chatterjee MD MICROBIOLOGY - GENERAL ORDER JT Performing Organization Address City/State/[place] [address] (ABNORMAL) Abscess/Wound Aspirate Culture (02/08/2022 4:13 PM EDT) Component Value Ref Test Analysis Performed At [facility] gist Range Method Time Signature Abscess/Woun Many Pseudomonas aeruginosa [facility] d Aspirate Many Serratia marcescens [facility] Culture Susceptibilities previously reported [facility] LABORATORY Gram Stain Many Neutrophils seen [facility] Moderate Gram Negative Rods seen [facility] LABORATORY Organism Pseudomonas J[facility] aeruginosa (A) [facility] LAB[facility] Organism Serratia marcescens JOS[facility] (A) [facility] LAB[facility]ORY Specimen Anatomical Collection Method Collection Time Receive d Time (Source) Location / / Volume Laterality Deep Wound STRUCTURE OF LEFT 02/08/2022 4:13 PM 01/29 4:32 THIGH / Unknown EDT PM EDT Comment: Left thigh #1 Resulting Agency Comment Spec In Lab Jeanette Chatterjee MD MICROBIOLOGY - GENERAL ORDER JT Performing Organization Address City/[facility]/[place] [address] POCT Glucose (02/08/2022 12:09 PM EDT) athologist Signature POC Glucose 126 65 - 199 [facility] mg/dL [facility] Comment: Supplemental ranges: <140 mg/dL before meals <180 mg/dL all other times of the day Specimen Anatomical Collection Method Collection Time Receive d Time (Source) Location / / Volume Laterality Blood 02/08/2022 12:09 02/08/2022 PM EDT 12:09 PM EDT Parrish Betancourt MD POINT OF CARE TEST ORDERABLE S Performing Organization Address City/State/[place] [address] POCT Glucose (02/08/2022 12:09 PM EDT) athologist Signature POC Glucose 100 65 - 199 [facility] mg/dL [facility] Comment: Supplemental ranges: <140 mg/dL before meals <180 mg/dL all other times of the day Specimen Anatomical Collection Method Collection Time Receive d Time (Source) Location / / Volume Laterality Blood 02/08/2022 12:09 02/08/2022 PM EDT 12:09 PM EDT Parrish Betancourt MD POINT OF CARE TEST ORDERABLE S Performing Organization Address City/State/ZIP [place] [address] (ABNORMAL) Blood Gas Arterial ([facility]) (02/08/2022 12:00 PM EDT) Analysis Performed At Patho logist Time Signature pH Art 7.47 (H) 7.35 - [facility] 7.45 [facility] pCO2 Art 32 (L) 35 - 45 [facility] mmHg [facility] pO2 Art 129 (H) 85 - 104 [facility] LABORATORY HCO3 Art 22.9 20.0 - [facility] 26.0 [facility] mmol/L [facility] LABORATORY BE Art -0.7 -3.0 - 3.0 [facility] mmol/L [facility] Hgb Blood Gas 8.1 (L) 13.7 - [facility] 16.5 g/dL [facility] O2HB Art 97.5 (H) 94.0 - [facility] 97.0 % [facility] COHB Art 0.9 % [facility] Comment: Nonsmokers: ??0.5-1.5% COHB Smokers: ??Variable, but usually less th an 10% Toxic: 20 - 30% COHB Lethal: ??Greater than 60% COHB METHB Art 0.0 <=1.5 % [facility] LABOR[facility] Na Whole Blood 123 (L) 135 - 145 mmol/L [facility] K Whole Blood 4.7 3.5 - 5.0 mmol/L [facility] Comment: Please note: ??Patients with WBC >100,00 0 may have falsely elevated Potassium levels. ??Contact the Clinical Chemistry Laboratory if there are any questions. ICa Whole Blood 1.26 1.15 - 1.33 mmol/L [facility] Comment: Note: ??Total bilirubin higher than 20 m g/dL may lead to falsely low ionized calcium. CL Whole Blood 98 98 - 107 mmol/L [facility] Gluc Whole Bld 92 65 - 199 mg/dL [facility] LABORATORY Comment: Diabetes: >=200 mg/dL plus symp toms. Lactate WB 0.9 0.5 - 2.2 mmol/L [facility]OR[facility] Specimen Anatomical Collection Method Collection Time Receive d Time (Source) Location / / Volume Laterality Blood Arterial Draw / 02/08/2022 12:00 02/09/20 22 Unknown PM EDT 12:21 PM EDT Resulting Agency Comment Spec In Lab Angelina Reynoso MD CHEMISTRY ORDERABLES Performing Organization Address City/[facility]/ZIP Code Phon e Number [address] (ABNORMAL) Sodium (02/08/2022 12:00 PM EDT) P athologist Signature Sodium 127 (L) 135 - 145 [facility] mmol/L [facility] Specimen Anatomical Collection Method Collection Time Receive d Time (Source) Location / / Volume Laterality Blood 02/08/2022 12:00 02/08/2022 PM EDT 12:23 PM EDT Resulting Agency Comment Spec In Lab Parrish Betancourt MD CHEMISTRY ORDERABLES Performing Organization Address City/[facility]/[place] [address] (ABNORMAL) Calcium Ionized Whole Blood, HONORIO (02/08/2022 11:00 AM EDT) Analysis Performed At Patho logist Time Signature pH Honorio 7.46 (H) 7.32 - [facility] 7.42 [facility] ICa Whole 1.26 1.15 - [facility] Blood 1.33 [facility] mmol/[facility] LABORATORY Comment: Note: ??Total bilirubin higher than 20 m g/dL may lead to falsely low ionized calcium. Specimen Anatomical Collection Method Collection Time Receive d Time (Source) Location / / Volume Laterality Blood ARTERIAL LINE / 02/08/2022 11:00 02/09/20 22 Unknown AM EDT 11:09 AM EDT Resulting Agency Comment Spec In Lab Parrish Betancourt MD CHEMISTRY ORDERABLES Performing Organization Address City/[facility]/ZIP [place] [address] POCT Glucose (02/08/2022 9:56 AM EDT) athologist Signature POC Glucose 96 65 - 199 [facility] mg/dL [facility] Comment: Supplemental ranges: <140 mg/dL before meals <180 mg/dL all other times of the day Specimen Anatomical Collection Method Collection Time Receive d Time (Source) Location / / Volume Laterality Blood 02/08/2022 9:56 AM 9:56 EDT AM EDT Parrish Betancorut MD POINT OF CARE TEST ORDERABLE S Performing Organization Address City/State/ZIP [place] [address] (ABNORMAL) BLOOD GAS 2 ARTERIAL (02/08/2022 8:15 AM EDT) athologist Signature pH Art 7.44 7.35 - [facility] 7.45 [facility] LABOR[facility]ORY pCO2 Art 36 35 - 45 [facility] mmHg [facility] LABORATORY pO2 Art 108 (H) 85 - 104 [facility] LABORATORY HCO3 Art 23.8 20.0 - [facility] 26.0 [facility] mmol/L [facility] LABORATORY BE Art -0.3 -3.0 - 3.0 [facility] mmol/L [facility] Hgb Blood Gas 7.8 (L) 13.7 - [facility] 16.5 g/dL [facility]ORY O2HB Art 95.7 94.0 - [facility] 97.0 % [facility] LAB[facility]ORY COHB Art 0.1 % [facility] Comment: Nonsmokers: 0.5-1.5% COHB Smokers: Variable, but usually less than 10% Toxic: 20-30% COHB Lethal: Greater than 60% COHB METHB Art 1.3 <=1.5 % [facility] LABOR[facility] Na Whole Blood 122 (L) 135 - 145 mmol/L [facility] K Whole Blood 4.6 3.5 - 5.0 mmol/L [facility] Comment: Please note: Patients with WBC >100,000 may have falsely elevated Potassium levels. Contact the Clinical Chemistry L aboratory if there are any questions. ICa Whole Blood 1.27 1.15 - 1.33 mmol/L [facility] Comment: Note: ??Total bilirubin higher than 20 m g/dL may lead to falsely low ionized calcium. CL Whole Blood 98 98 - 107 mmol/L [facility] Gluc Whole Bld 92 65 - 199 mg/dL [facility] LABORATORY Comment: Diabetes: >=200 mg/dL plus symp toms. Lactate WB 0.9 0.5 - 2.2 mmol/L [facility] FIO2 Art 21 % [facility] LABORATORY PF Ratio Art [address] [facility] LABORATORY Specimen Anatomical Collection Method Collection Time Receive d Time (Source) Location / / Volume Laterality Blood 02/08/2022 8:15 AM 2 8:15 EDT AM EDT Jayme Armstrong MD CHEMISTRY ORDERABLES Performing Organization Address City/State/ZIP Code Phon e Number [address] POCT Glucose (02/08/2022 7:42 AM EDT) P athologist Signature POC Glucose 98 65 - 199 [facility] mg/dL [facility] Comment: Supplemental ranges: <140 mg/dL before meals <180 mg/dL all other times of the day Specimen Anatomical Collection Method Collection Time Receive d Time (Source) Location / / Volume Laterality Blood 02/08/2022 7:42 AM 2 7:42 EDT AM EDT Jayme Armstrong MD POINT OF CARE TEST ORDERABLE S Performing Organization Address City/State/[place] [address] Phosphorus (02/08/2022 5:57 AM EDT) P athologist Signature Phosphorus 3.9 2.5 - 4.5 [facility] mg/dL [facility] Specimen Anatomical Collection Method Collection Time Receive d Time (Source) Location / / Volume Laterality Blood 02/08/2022 5:57 AM 2 5:58 EDT AM EDT Resulting Agency Comment Spec In Lab Gela Novak MD CHEMISTRY ORDERABLES Performing Organization Address City/State/ZIP Code Phon e Number [address] Magnesium (02/08/2022 5:57 AM EDT) athologist Signature Magnesium 0.91 0.69 - 1.07 [facility] mmol/L [facility] Specimen Anatomical Collection Method Collection Time Receive d Time (Source) Location / / Volume Laterality Blood 02/08/2022 5:57 AM 2 5:58 EDT AM EDT Resulting Agency Comment Spec In Lab Gela Novak MD CHEMISTRY ORDERABLES Performing Organization Address City/[facility] [place] [address] (ABNORMAL) Basic Metabolic Panel (non-fasting) (02/08/2022 5:57 AM EDT) athologist Signature Glucose Lvl 92 65 - 199 [facility] mg/dL [facility] Comment: Diabetes: >=200 mg/dL plus symp toms BUN 29 (H) 10 - 20 mg/dL [facility] Creatinine 2.94 (H) 0.80 - 1.50 mg/dL [facility] Comment: result rechecked-red Sodium 126 (L) 135 - 145 mmol/L [facility] Potassium 4.9 3.5 - 5.0 mmol/L [facility] Comment: Please note: ??Patients with WBC >100,00 0 may have falsely elevated Potassium levels. ??For accurate Potassium quantif ication in these patients send serum separator tube (gold top) for subsequent determinations. ??Contact the Clinical Chemistry Laboratory if there are any qu estions. Chloride 97 (L) 98 - 107 mmol/L [facility] CO2 22 22 - 31 mmol/L [facility] Anion Gap 7 5 - 15 mmol/L [facility] Calcium 8.5 8.5 - 10.5 mg/dL [facility] Comment: result rechecked-red Estimated GFR 28 (L) >=60 mL/min/1.73 m?? [facility] Comment: This patient's estimated [...] Organization Address City/State/[place] [address] (ABNORMAL) BLOOD GAS 2 ARTERIAL (02/08/2022 5:54 AM EDT) Analysis Performed At Patho logist Time Signature pH Art 7.47 (H) 7.35 - [facility] 7.45 [facility] pCO2 Art 30 (L) 35 - 45 [facility] mmHg [facility] pO2 Art 87 85 - 104 [facility] LABORATORY HCO3 Art 21.5 20.0 - [facility] 26.0 [facility] mmol/L [facility] BE Art -2.1 -3.0 - 3.0 [facility] mmol/L [facility] Hgb Blood Gas 7.7 (L) 13.7 - [facility] 16.5 g/dL [facility] O2HB Art 94.2 94.0 - [facility] 97.0 % [facility] COHB Art 0.3 % [facility] Comment: Nonsmokers: 0.5-1.5% COHB Smokers: Variable, but usually less than 10% Toxic: 20-30% COHB Lethal: Greater than 60% COHB METHB Art 1.0 <=1.5 % [facility] Na Whole Blood 122 (L) 135 - 145 mmol/L [facility] K Whole Blood 4.8 3.5 - 5.0 mmol/L [facility] Comment: Please note: Patients with WBC >100,000 may have falsely elevated Potassium levels. Contact the Clinical Chemistry L aboratory if there are any questions. ICa Whole Blood 1.28 1.15 - 1.33 mmol/L [facility] Comment: Note: ??Total bilirubin higher than 20 m g/dL may lead to falsely low ionized calcium. CL Whole Blood 98 98 - 107 mmol/L [facility] Gluc Whole Bld 87 65 - 199 mg/dL [facility] Comment: Diabetes: >=200 mg/dL plus symp toms. Lactate WB 1.1 0.5 - 2.2 mmol/L [facility] FIO2 Art 21 % [facility] PF Ratio Art [address] [facility] Temp Art 37.2 Celsius [facility] Specimen Anatomical Collection Method Collection Time Receive d Time (Source) Location / / Volume Laterality Blood 02/08/2022 5:54 AM 5:54 EDT AM EDT Jayme Armstrong MD CHEMISTRY ORDERABLES Performing Organization Address City/State/ZIP [place] [address] Scan, Peripheral Blood (02/08/2022 1:00 AM EDT) [facility] gist Method Time Signature Plat Estimate Decreased [facility] RBC Morphology Abnormal [facility] Polychromasia Present >5/HPF [facility] Ovalocytes 1-5 /HPF [facility] Angel Cells 1-5 /HPF [facility] Toxic Granulation Present [facility] Specimen Anatomical Collection Method Collection Time Receive d Time (Source) Location / / Volume Laterality Blood 02/08/2022 1:00 AM 2 1:20 EDT AM EDT Resulting Agency Comment Spec In Lab Danielle Ramirez MD HEMATOLOGY ORDERABLES Performing Organization Address City/State/ZIP [place] [address] (ABNORMAL) Differential, Automated (02/08/2022 1:00 AM EDT) [facility] Method Time Signature Neutrophils % 67.2 % [facility] Neutr Abs (ANC) 12.53 (H) 1.70 - [facility] 6.10 [facility] x10(3)/[facility] LABORATORY Lymphocytes % 8.1 % [facility] Lymphocytes Abs 1.5 0.9 - 3.2 [facility] x10(3)/[facility] LABORATORY Monocytes % 13.3 % [facility] Monocyte Abs 2.5 (H) 0.3 - 0.9 [facility] x10(3)/[facility] LABORATORY Eosinophils % 1.2 % [facility] Eosinophils Abs 0.2 0.0 - 0.4 [facility] x10(3)/[facility] LABORATORY Basophils % 0.5 % [facility] Basophils Abs 0.1 0.0 - 0.1 [facility] x10(3)/[facility] LABORATORY Immature Gran % 9.70 % [facility] Comment: Immature granulocytes(IG's)percentage an d absolute count will include metamyelocytes, myelocytes, and promyelo cytes. Blood smears from CBCs yielding IG's will be scanned manually for concor dance. If this scan disagrees with the automated IG or if promyelocytes are not ed, a manual differential will be performed. Gemini Gran Abs 1.81 (H) 0.00 - 0.04 x10(3)/[facility] LABORATORY Specimen Anatomical Collection Method Collection Time Receive d Time (Source) Location / / Volume Laterality Blood 02/08/2022 1:00 AM 2 1:20 EDT AM EDT Resulting Agency Comment Spec In Lab Danielle Ramirez MD HEMATOLOGY ORDERABLES Performing Organization Address City/State/[place] [address] (ABNORMAL) Hemogram (02/08/2022 1:00 AM EDT) [facility] gist Method Time Signature WBC 18.6 (H) 4.0 - 9.5 [facility](3[facility] LABORATORY RBC 2.51 (L) 4.58 - [facility] 5.54 [facility] x10(6)/[facility] LABORATORY Hemoglobin 7.3 (L) 13.7 - [facility] 16.5 g/dL [facility] Hematocrit 20.7 (L) 40.5 - [facility] 48.5 % [facility] MCV 82.5 (L) 82.9 - [facility] 93.1 [facility] LABORATORY MCH 29.1 27.5 - [facility] 32.1 pg [facility] MCHC 35.3 32.0 - [facility] 35.7 g/dL [facility] Platelets 97 (L) 145 - 357 [facility] x10(3)/[facility] LABORATORY RDWSD 42.7 36.0 - [facility] 45.0 [facility] LABORATORY RDWCV 15.6 (H) 11.4 - [facility] 13.8 % [facility] MPV 9.7 7.6 - 12.9 [facility] LAB[facility]ATORY nRBC % Auto 0.5 % [facility] nRBC Abs Auto 0.100 (H) 0.000 - [facility] 0.000 [facility] x10(3)/[facility] LABORATORY Specimen Anatomical Collection Method Collection Time Receive d Time (Source) Location / / Volume Laterality Blood 02/08/2022 1:00 AM 2 1:20 EDT AM EDT Resulting Agency Comment Spec In Lab Danielle Ramirez MD HEMATOLOGY ORDERABLES Performing Organization Address City/State/[place] [address] (ABNORMAL) Fibrinogen (02/08/2022 1:00 AM EDT) P athologist Signature Fibrinogen 423 (H) 200 - 393 [facility] mg/dL [facility] Comment: A fibrinogen level >100 mg/dL is adequat e for hemostasis in most patients without underlying bleeding disorders. Specimen Anatomical Collection Method Collection Time Receive d Time (Source) Location / / Volume Laterality Blood 02/08/2022 1:00 AM 2 1:20 EDT AM EDT Resulting Agency Comment Spec In Lab Jayme Armstrong MD HEMATOLOGY ORDERABLES Performing Organization Address City/[facility]/ZIP [facility] Phon e Number [address] APTT (02/08/2022 1:00 AM EDT) athologist Signature PTT 25 25 - 37 sec [facility] Comment: The PTT is [...] Armstrong MD HEMATOLOGY ORDERABLES Performing Organization Address City/[facility] [place] [address] Prothrombin Time (02/08/2022 1:00 AM EDT) P athologist Signature PT 12.2 9.4 - 12.5 [facility] LABORATORY INR 1.1 [facility] Comment: An INR <2.0 [...] Organization Address City/State/ZIP [place] [address] (ABNORMAL) Blood Gas Arterial ([facility]) (02/08/2022 12:01 AM EDT) Analysis Performed At Patho logist Time Signature pH Art 7.47 (H) 7.35 - [facility] 7.45 [facility] pCO2 Art 32 (L) 35 - 45 [facility] mmHg [facility] pO2 Art 87 85 - 104 [facility] LABORATORY HCO3 Art 22.6 20.0 - [facility] 26.0 [facility] mmol/L [facility] LABORATORY BE Art -1.1 -3.0 - 3.0 [facility] mmol/L [facility] Hgb Blood Gas 7.7 (L) 13.7 - [facility] 16.5 g/dL [facility] O2HB Art 95.4 94.0 - [facility] 97.0 % [facility] COHB Art 1.0 % [facility] Comment: Nonsmokers: ??0.5-1.5% COHB Smokers: ??Variable, but usually less th an 10% Toxic: 20 - 30% COHB Lethal: ??Greater than 60% COHB METHB Art 0.1 <=1.5 % [facility] Na Whole Blood 122 (L) 135 - 145 mmol/L [facility] K Whole Blood 4.6 3.5 - 5.0 mmol/L [facility] Comment: Please note: ??Patients with WBC >100,00 0 may have falsely elevated Potassium levels. ??Contact the Clinical Chemistry Laboratory if there are any questions. ICa Whole Blood 1.24 1.15 - 1.33 mmol/L [facility] Comment: Note: ??Total bilirubin higher than 20 m g/dL may lead to falsely low ionized calcium. CL Whole Blood 99 98 - 107 mmol/L [facility] Gluc Whole Bld 89 65 - 199 mg/dL [facility] Comment: Diabetes: >=200 mg/dL plus symp toms. Lactate WB 1.1 0.5 - 2.2 mmol/L [facility] Specimen Anatomical Collection Method Collection Time Receive d Time (Source) Location / / Volume Laterality Blood Arterial Draw / 02/08/2022 12:01 02/09/20 22 Unknown AM EDT 12:16 AM EDT Resulting Agency Comment Spec In Lab Angelina Reynoso MD CHEMISTRY ORDERABLES Performing Organization Address City/[facility]/ZIP Code Phon e Number [address] (ABNORMAL) Sodium (02/08/2022 12:01 AM EDT) P athologist Signature Sodium 125 (L) 135 - 145 [facility] mmol/L [facility] Specimen Anatomical Collection Method Collection Time Receive d Time (Source) Location / / Volume Laterality Blood 02/08/2022 12:01 02/08/2022 AM EDT 12:15 AM EDT Resulting Agency Comment Spec In Lab Parrish Betancourt MD CHEMISTRY ORDERABLES Performing Organization Address City/[facility]/ZIP Code Phon e Number [address] Prepare RBC (02/07/2022 7:40 PM EDT) P athologist Signature Dispensed? Yes [facility] Specimen Anatomical Collection Method Collection Time Receive d Time (Source) Location / / Volume Laterality Blood 02/07/2022 7:40 PM 7:39 EDT PM EDT Jayme Armstrong MD BLOOD BANK ORDERABLES Performing Organization Address City/[facility]/[place] [address] (ABNORMAL) BLOOD GAS 2 ARTERIAL (02/07/2022 6:08 PM EDT) Analysis Performed At Patho logist Time Signature pH Art 7.50 (H) 7.35 - [facility] 7.45 [facility] pCO2 Art 27 (L) 35 - 45 [facility] LABORATORY pO2 Art 81 (L) 85 - 104 [facility] LABORATORY HCO3 Art 20.8 20.0 - [facility] 26.0 [facility] mmol/L [facility] BE Art -2.4 -3.0 - 3.0 [facility] mmol/L [facility] Hgb Blood Gas 8.5 (L) 13.7 - [facility] 16.5 g/dL [facility] O2HB Art 93.9 (L) 94.0 - [facility] 97.0 % [facility] COHB Art 0.3 % [facility] Comment: Nonsmokers: 0.5-1.5% COHB Smokers: Variable, but usually less than 10% Toxic: 20-30% COHB Lethal: Greater than 60% COHB METHB Art 1.0 <=1.5 % [facility] Na Whole Blood 119 (Critical) 135 - 145 mmol/L [facility] Comment: Noted by electrical and instrument mechanic. K Whole Blood 5.1 (H) 3.5 - 5.0 mmol/L [facility] Comment: Please note: Patients with WBC >100,000 may have falsely elevated Potassium levels. Contact the Clinical Chemistry L aboratory if there are any questions. ICa Whole Blood 1.18 1.15 - 1.33 mmol/L [facility] Comment: Note: ??Total bilirubin higher than 20 m g/dL may lead to falsely low ionized calcium. CL Whole Blood 96 (L) 98 - 107 mmol/L [facility] Gluc Whole Bld 100 65 - 199 mg/dL [facility] Comment: Diabetes: >=200 mg/dL plus symp toms. Lactate WB 1.4 0.5 - 2.2 mmol/L [facility] Flow Art 21.0 LPM [facility] Specimen Anatomical Collection Method Collection Time Receive d Time (Source) Location / / Volume Laterality Blood 02/07/2022 6:08 PM 6:08 EDT PM EDT Jayme Armstrong MD CHEMISTRY ORDERABLES Performing Organization Address City/State/ZIP Code Phon e Number [address] Scan, Peripheral Blood (02/07/2022 6:05 PM EDT) [facility] [employer] Method Time Signature Plat Estimate Decreased [facility] RBC Morphology Abnormal [facility] Polychromasia Present >5/HPF [facility] Cambria Cells 1-5 /HPF [facility] Stippled RBCs Present >1/HPF [facility] Specimen Anatomical Collection Method Collection Time Receive d Time (Source) Location / / Volume Laterality Blood 02/07/2022 6:05 PM 6:10 EDT PM EDT Resulting Agency Comment Spec In Lab Rogers Solano APRN HEMATOLOGY ORDERABLES Performing Organization Address City/[facility]/[place] [address] (ABNORMAL) Differential, Automated (02/07/2022 6:05 PM EDT) [facility] [employer] Method Time Signature Neutrophils % 67.7 % [facility] Neutr Abs (ANC) 12.21 (H) 1.70 - [facility] 6.10 [facility] x10(3)/[facility] LABORATORY Lymphocytes % 7.1 % [facility] Lymphocytes Abs 1.3 0.9 - 3.2 [facility] x10(3)/[facility] LABORATORY Monocytes % 14.1 % [facility] Monocyte Abs 2.6 (H) 0.3 - 0.9 [facility] x10(3)/[facility] LABORATORY Eosinophils % 0.8 % [facility] Eosinophils Abs 0.1 0.0 - 0.4 [facility] x10(3)/[facility] LABORATORY Basophils % 0.4 % [facility] Basophils Abs 0.1 0.0 - 0.1 [facility] x10(3)/[facility] LABORATORY Immature Gran % 9.90 % [facility] Comment: Immature granulocytes(IG's)percentage an d absolute count will include metamyelocytes, myelocytes, and promyelo cytes. Blood smears from CBCs yielding IG's will be scanned manually for concor dance. If this scan disagrees with the automated IG or if promyelocytes are not ed, a manual differential will be performed. Gemini Gran Abs 1.79 (H) 0.00 - 0.04 x10(3)/[facility] LABORATORY Specimen Anatomical Collection Method Collection Time Receive d Time (Source) Location / / Volume Laterality Blood 02/07/2022 6:05 PM 6:10 EDT PM EDT Resulting Agency Comment Spec In Lab Rogers Solano APRN HEMATOLOGY ORDERABLES Performing Organization Address City/State/ZIP [place] [address] (ABNORMAL) Hemogram (02/07/2022 6:05 PM EDT) [facility] gist Method Time Signature WBC 18.0 (H) 4.0 - 9.5 [facility] x10(3)/[facility] LABORATORY RBC 2.31 (L) 4.58 - [facility] 5.54 [facility] x10(6)/[facility] LABORATORY Hemoglobin 6.8 (L) 13.7 - [facility] 16.[facility] g/dL [facility] Hematocrit 19.3 (L) 40.5 - [facility] MANDO 48.5 % [facility] MCV 83.5 82.9 - [facility] MANDO 93.1 [facility] LABORATORY MCH 29.4 27.5 - [facility] 32.1 pg [facility] MCHC 35.2 32.0 - [facility] 35.7 g/dL [facility] Platelets 85 (L) 145 - 357 [facility] x10(3)/[facility] LABORATORY RDWSD 42.5 36.0 - [facility] 45.0 [facility] LABORATORY RDWCV 14.7 (H) 11.4 - [facility] MANDO 13.8 % [facility] LABORATORY MPV 9.9 7.6 - 12.9 [facility] LABORATORY nRBC % Auto 0.8 % [facility] nRBC Abs Auto 0.150 (H) 0.000 - [facility] 0.000 [facility] x10(3)/[facility] LABORATORY Specimen Anatomical Collection Method Collection Time Receive d Time (Source) Location / / Volume Laterality Blood 02/07/2022 6:05 PM 2 6:10 EDT PM EDT Resulting Agency Comment Spec In Lab Rogers Solano APRN HEMATOLOGY ORDERABLES Performing Organization Address City/[facility]/ZIP Code Phon e Number [address] (ABNORMAL) Sodium (02/07/2022 6:05 PM EDT) P athologist Signature Sodium 125 (L) 135 - 145 [facility] mmol/L [facility] Specimen Anatomical Collection Method Collection Time Receive d Time (Source) Location / / Volume Laterality Blood 02/07/2022 6:05 PM 2 6:10 EDT PM EDT Resulting Agency Comment Spec In Lab Parrish Betancourt MD CHEMISTRY ORDERABLES Performing Organization Address City/[facility]/[place] [address] (ABNORMAL) Calcium Ionized Whole Blood, HONORIO (02/07/2022 4:30 PM EDT) Analysis Performed At Patho logist Time Signature pH Honorio 7.43 (H) 7.32 - [facility] 7.42 [facility] ICa Whole 1.15 1.15 - [facility] Blood 1.33 [facility] mmol/[facility]ORY Comment: Note: ??Total bilirubin higher than 20 m g/dL may lead to falsely low ionized calcium. Specimen Anatomical Collection Method Collection Time Receive d Time (Source) Location / / Volume Laterality Blood ARTERIAL LINE / 02/07/2022 4:30 PM 2021 4:38 Unknown EDT PM EDT Resulting Agency Comment Spec In Lab Parrish Betancourt MD CHEMISTRY ORDERABLES Performing Organization Address City/[facility]/ZIP Code Phon e Number [address] Transfuse RBC (02/07/2022 4:20 PM EDT) Rogers Solano KATERYNA NURSING TREATMENT ORDERABLES - BLOOD ADMIN Transfuse RBC (02/07/2022 4:20 PM EDT) Rogers Solano KATERYNA NURSING TREATMENT ORDERABLES - BLOOD ADMIN Prepare RBC (02/07/2022 1:30 PM EDT) P athologist Signature Dispensed? Yes [facility] Specimen Anatomical Collection Method Collection Time Receive d Time (Source) Location / / Volume Laterality Blood 02/07/2022 1:30 PM 1:29 EDT PM EDT Rogers Solano KATERYNA BLOOD BANK ORDERABLES Performing Organization Address City/State/ZIP [place] [address] XR Chest One View [...] who have questions please contact the health care associate that requested your imaging first. [...] ho have questions please contact the health care associate that requested your imaging first. Jayme Armstrong MD IMG DX ORDERABLES (ABNORMAL) BLOOD GAS 2 ARTERIAL (02/07/2022 1:04 PM EDT) Analysis Performed At Patho logist Time Signature pH Art 7.51 (H) 7.35 - [facility] 7.45 [facility]ATORY pCO2 Art 28 (L) 35 - 45 [facility] LABORATORY pO2 Art 78 (L) 85 - 104 [facility] LABORATORY HCO3 Art 22.0 20.0 - [facility] 26.0 [facility] mmol/L [facility] LABORATORY BE Art -1.0 -3.0 - 3.0 [facility] mmol/L [facility] Hgb Blood Gas 7.4 (L) 13.7 - [facility] 16.5 g/dL [facility] O2HB Art 93.3 (L) 94.0 - [facility] 97.0 % [facility]ORY COHB Art 0.3 % [facility] Comment: Nonsmokers: 0.5-1.5% COHB Smokers: Variable, but usually less than 10% Toxic: 20-30% COHB Lethal: Greater than 60% COHB METHB Art 1.2 <=1.5 % [facility] Na Whole Blood 118 (Critical) 135 - 145 mmol/L [facility] Comment: Noted by electrical and instrument mechanic. K Whole Blood 5.8 (H) 3.5 - 5.0 mmol/L [facility] Comment: Please note: Patients with WBC >100,000 may have falsely elevated Potassium levels. Contact the Clinical Chemistry L aboratory if there are any questions. ICa Whole Blood 1.08 (L) 1.15 - 1.33 mmol/L [facility] Comment: Note: ??Total bilirubin higher than 20 m g/dL may lead to falsely low ionized calcium. CL Whole Blood 94 (L) 98 - 107 mmol/L [facility] Gluc Whole Bld 104 65 - 199 mg/dL [facility] Comment: Diabetes: >=200 mg/dL plus symp toms. Lactate WB 1.2 0.5 - 2.2 mmol/L [facility] FIO2 Art 21 % [facility] PF Ratio Art [address] [facility] Specimen Anatomical Collection Method Collection Time Receive d Time (Source) Location / / Volume Laterality Blood 02/07/2022 1:04 PM 1:04 EDT PM EDT Jayme Armstrong MD CHEMISTRY ORDERABLES Performing Organization Address City/State/ZIP [place] [address] (ABNORMAL) Phosphorus (02/07/2022 1:00 PM EDT) athologist Signature Phosphorus 5.0 (H) 2.5 - 4.5 [facility] mg/dL [facility] Specimen Anatomical Collection Method Collection Time Receive d Time (Source) Location / / Volume Laterality Blood Venous Draw / 02/07/2022 1:00 PM 02/08/20 22 1:15 Unknown EDT PM EDT Resulting Agency Comment Spec In Lab Angelina Reynoso MD CHEMISTRY ORDERABLES Performing Organization Address City/[facility]/ZIP Code Phon e Number [address] Magnesium (02/07/2022 1:00 PM EDT) athologist Signature Magnesium 0.87 0.69 - 1.07 [facility] mmol/L [facility] Specimen Anatomical Collection Method Collection Time Receive d Time (Source) Location / / Volume Laterality Blood Venous Draw / 02/07/2022 1:00 PM 02/08/20 22 1:15 Unknown EDT PM EDT Resulting Agency Comment Spec In Lab Angelina Reynoso MD CHEMISTRY ORDERABLES Performing Organization Address City/[facility]/ZIP Code Phon e Number [address] (ABNORMAL) Differential, Automated (02/07/2022 1:00 PM EDT) [facility] gist Method Time Signature Neutrophils % 67.1 % [facility] LABORATORY Neutr Abs (ANC) 13.59 (H) 1.70 - [facility] 6.10 [facility] x10(3)/[facility] LABORATORY Lymphocytes % 6.8 % [facility] LABORATORY Lymphocytes Abs 1.4 0.9 - 3.2 [facility] x10(3)/[facility] LABORATORY Monocytes % 13.2 % [facility] LABORATORY Monocyte Abs 2.7 (H) 0.3 - 0.9 [facility] x10(3)/[facility] LABORATORY Eosinophils % 0.5 % [facility] LABORATORY Eosinophils Abs 0.1 0.0 - 0.4 [facility] x10(3)/[facility] LABORATORY Basophils % 0.5 % [facility] LABORATORY Basophils Abs 0.1 0.0 - 0.1 [facility] x10(3)/[facility] LABORATORY Immature Gran % 11.90 % [facility] LABORATORY Comment: Immature granulocytes(IG's)percentage an d absolute count will include metamyelocytes, myelocytes, and promyelo cytes. Blood smears from CBCs yielding IG's will be scanned manually for concor dance. If this scan disagrees with the automated IG or if promyelocytes are not ed, a manual differential will be performed. Gemini Gran Abs 2.40 (H) 0.00 - 0.04 x10(3)/[facility] LABORATORY Specimen Anatomical Collection Method Collection Time Receive d Time (Source) Location / / Volume Laterality Blood 02/07/2022 1:00 PM 2 1:09 EDT PM EDT Resulting Agency Comment Spec In Lab Batsheva Hill MD HEMATOLOGY ORDERABLES Performing Organization Address City/State/[place] [address] (ABNORMAL) Hemogram (02/07/2022 1:00 PM EDT) [facility] gist Method Time Signature WBC 20.2 (H) 4.0 - 9.5 [facility] x10(3)/[facility] LABORATORY RBC 2.25 (L) 4.58 - [facility] 5.54 [facility] x10(6)/[facility] LABORATORY Hemoglobin 6.6 (L) 13.7 - [facility] 16.[facility] g/dL [facility] LABORATORY Hematocrit 18.6 (L) 40.5 - [facility] 48.5 % [facility] LABORATORY MCV 82.7 (L) 82.9 - [facility] 93.1 [facility] LABORATORY MCH 29.3 27.5 - [facility] 32.1 pg [facility] LABORATORY MCHC 35.5 32.0 - [facility] 35.7 g/dL [facility] LABORATORY Platelets 112 (L) 145 - 357 [facility] x10(3)/[facility] LABORATORY RDWSD 42.7 36.0 - [facility] 45.0 [facility] LABORATORY RDWCV 14.9 (H) 11.4 - [facility] 13.8 % [facility] LABORATORY MPV 9.8 7.6 - 12.9 [facility] LABORATORY nRBC % Auto 0.9 % [facility] LABORATORY nRBC Abs Auto 0.190 (H) 0.000 - [facility] 0.000 [facility] x10(3)/[facility] LABORATORY Specimen Anatomical Collection Method Collection Time Receive d Time (Source) Location / / Volume Laterality Blood 02/07/2022 1:00 PM 2 1:09 EDT PM EDT Resulting Agency Comment Spec In Lab Batsheva Hill MD HEMATOLOGY ORDERABLES Performing Organization Address City/State/ZIP [place] [address] (ABNORMAL) Basic Metabolic Panel (non-fasting) (02/07/2022 1:00 PM EDT) athologist Signature Glucose Lvl 105 65 - 199 [facility] mg/dL [facility] LABORATORY Comment: Diabetes: >=200 mg/dL plus symp toms BUN 41 (H) 10 - 20 mg/dL [facility] LABORATORY Creatinine 3.92 (H) 0.80 - 1.50 mg/dL [facility] LABORATORY Sodium 123 (L) 135 - 145 mmol/L [facility] LABORATORY Potassium 6.0 (H) 3.5 - 5.0 mmol/L [facility] LABORATORY Comment: Please note: ??Patients with WBC >100,00 0 may have falsely elevated Potassium levels. ??For accurate Potassium quantif ication in these patients send serum separator tube (gold top) for subsequent determinations. ??Contact the Clinical Chemistry Laboratory if there are any qu estions. Chloride 94 (L) 98 - 107 mmol/L [facility] LABORATORY CO2 21 (L) 22 - 31 mmol/L [facility] LABORATORY Anion Gap 8 5 - 15 mmol/L [facility] LABORATORY Calcium 7.4 (L) 8.5 - 10.5 mg/dL [facility] LABORATORY Estimated GFR 20 (L) >=60 mL/min/1.73 m?? [facility] LABORATORY Comment: This patient's estimated [...] Organization Address City/State/[place] [address] CENTRAL LINE (02/07/2022 12:52 [...] location at time of insertion: I 4 [facility] Rogers Solano APRN Rogers Solano APRN PROCEDURE/MINOR SURGICAL ORD ERABLES POCT Glucose (02/07/2022 8:22 AM EDT) athologist Signature POC Glucose 130 65 - 199 [facility] mg/dL [facility] LABORATORY Comment: Supplemental ranges: <140 mg/dL before meals <180 mg/dL all other times of the day Specimen Anatomical Collection Method Collection Time Receive d Time (Source) Location / / Volume Laterality Blood 02/07/2022 8:22 AM 8:22 EDT AM EDT Jayme Armstrong MD POINT OF CARE TEST ORDERABLE S Performing Organization Address City/State/ZIP [place] [address] (ABNORMAL) BLOOD GAS 2 ARTERIAL (02/07/2022 8:16 AM EDT) Analysis Performed At Patho logist Time Signature pH Art 7.50 (H) 7.35 - [facility] 7.45 [facility] LABORATORY pCO2 Art 29 (L) 35 - 45 [facility] mmHg [facility] LABORATORY pO2 Art 76 (L) 85 - 104 [facility] LABORATORY HCO3 Art 21.8 20.0 - [facility] 26.0 [facility] mmol/L [facility] LABORATORY BE Art -1.4 -3.0 - 3.0 [facility] mmol/L [facility] LABORATORY Hgb Blood Gas 8.0 (L) 13.7 - [facility] 16.5 g/dL [facility] LABORATORY O2HB Art 92.9 (L) 94.0 - [facility] 97.0 % [facility] LABORATORY COHB Art 0.3 % [facility] LABORATORY Comment: Nonsmokers: 0.5-1.5% COHB Smokers: Variable, but usually less than 10% Toxic: 20-30% COHB Lethal: Greater than 60% COHB METHB Art 1.4 <=1.5 % [facility] LABORATORY Na Whole Blood 117 (Critical) 135 - 145 mmol/L [facility] LABORATORY Comment: Noted by electrical and instrument mechanic. K Whole Blood 5.7 (H) 3.5 - 5.0 mmol/L [facility] LABORATORY Comment: Please note: Patients with WBC >100,000 may have falsely elevated Potassium levels. Contact the Clinical Chemistry L aboratory if there are any questions. ICa Whole Blood 1.11 (L) 1.15 - 1.33 mmol/L [facility] LABORATORY Comment: Note: ??Total bilirubin higher than 20 m g/dL may lead to falsely low ionized calcium. CL Whole Blood 94 (L) 98 - 107 mmol/L [facility] LABORATORY Gluc Whole Bld 116 65 - 199 mg/dL [facility] LABORATORY Comment: Diabetes: >=200 mg/dL plus symp toms. Lactate WB 1.3 0.5 - 2.2 mmol/L [facility] LABORATORY FIO2 Art 21 % [facility] LABORATORY PF Ratio Art [address] [facility] LABORATORY Specimen Anatomical Collection Method Collection Time Receive d Time (Source) Location / / Volume Laterality Blood 02/07/2022 8:16 AM 8:16 EDT AM EDT Jayme Armstrong MD CHEMISTRY ORDERABLES Performing Organization Address City/State/ZIP [place] [address] Scan, Peripheral Blood (02/07/2022 6:05 AM EDT) [facility] Method Time Signature Plat Estimate Decreased [facility] LABORATORY RBC Morphology Abnormal [facility] LABOR[facility]ORY Microcytes 1-5 /HPF [facility] LABORATORY Polychromasia Present >5/HPF [facility] LABORATORY Ovalocytes 1-5 /HPF [facility] LABORATORY Cambria Cells 1-5 /HPF [facility] LABORATORY Specimen Anatomical Collection Method Collection Time Receive d Time (Source) Location / / Volume Laterality Blood 02/07/2022 6:05 AM 6:11 EDT AM EDT Resulting Agency Comment Spec In Lab Collette ELLIS HEMATOLOGY ORDERABLES Performing Organization Address City/State/ZIP [place] [address] (ABNORMAL) Differential, Automated (02/07/2022 6:05 AM EDT) [facility] Method Time Signature Neutrophils % 64.3 % [facility] LABORATORY Neutr Abs (ANC) 15.67 (H) 1.70 - [facility] 6.10 [facility] x10(3)/[facility] LABORATORY Lymphocytes % 6.4 % [facility] LABORATORY Lymphocytes Abs 1.6 0.9 - 3.2 [facility] x10(3)/[facility] LABORATORY Monocytes % 13.7 % [facility] LABORATORY Monocyte Abs 3.3 (H) 0.3 - 0.9 [facility] x10(3)/[facility] LABORATORY Eosinophils % 0.5 % [facility] LABORATORY Eosinophils Abs 0.1 0.0 - 0.4 [facility] x10(3)/[facility] LABORATORY Basophils % 0.5 % [facility] LABORATORY Basophils Abs 0.1 0.0 - 0.1 [facility] x10(3)/[facility] LABORATORY Immature Gran % 14.60 % [facility] LABORATORY Comment: Immature granulocytes(IG's)percentage an d absolute count will include metamyelocytes, myelocytes, and promyelo cytes. Blood smears from CBCs yielding IG's will be scanned manually for concor dance. If this scan disagrees with the automated IG or if promyelocytes are not ed, a manual differential will be performed. Gemini Gran Abs 3.54 (H) 0.00 - 0.04 x10(3)/[facility] LABORATORY Specimen Anatomical Collection Method Collection Time Receive d Time (Source) Location / / Volume Laterality Blood 02/07/2022 6:05 AM 2 6:11 EDT AM EDT Resulting Agency Comment Spec In Lab Collette ELLIS HEMATOLOGY ORDERABLES Performing Organization Address City/State/ZIP [place] [address] (ABNORMAL) Hemogram (02/07/2022 6:05 AM EDT) [facility] gist Method Time Signature WBC 24.3 (H) 4.0 - 9.5 [facility] x10(3)/[facility] LABORATORY RBC 2.41 (L) 4.58 - [facility] 5.54 [facility] x10(6)/[facility] LABORATORY Hemoglobin 7.1 (L) 13.7 - [facility] g/dL [facility] LABORATORY Hematocrit 19.7 (L) 40.5 - [facility] 48.5 % [facility] LABORATORY MCV 81.7 (L) 82.9 - [facility] 93.1 [facility] LABORATORY MCH 29.5 27.5 - [facility] 32.1 pg [facility] LABORATORY MCHC 36.0 (H) 32.0 - [facility] 35.7 g/dL [facility] LABORATORY Platelets 89 (L) 145 - 357 [facility] x10(3)/[facility] LABORATORY RDWSD 42.7 36.0 - [facility]ANDO 45.0 [facility] LABORATORY RDWCV 15.1 (H) 11.4 - [facility] MANDO 13.8 % [facility] LABORATORY MPV 9.8 7.6 - 12.9 [facility] nRBC % Auto 1.5 % [facility] LABORATORY nRBC Abs Auto 0.370 (H) 0.000 - [facility] 0.000 [facility] x10(3)/[facility] LABORATORY Specimen Anatomical Collection Method Collection Time Receive d Time (Source) Location / / Volume Laterality Blood 02/07/2022 6:05 AM 2 6:11 EDT AM EDT Resulting Agency Comment Spec In Lab Collette ELLIS HEMATOLOGY ORDERABLES Performing Organization Address City/[facility]/[place] [address] (ABNORMAL) Sodium (02/07/2022 6:05 AM EDT) P athologist Signature Sodium 126 (L) 135 - 145 [facility] mmol/L [facility] LABORATORY Specimen Anatomical Collection Method Collection Time Receive d Time (Source) Location / / Volume Laterality Blood 02/07/2022 6:05 AM 2 6:11 EDT AM EDT Resulting Agency Comment Spec In Lab Parrish Betancourt MD CHEMISTRY ORDERABLES Performing Organization Address City/[facility]/[place] [address] Transfuse RBC (02/07/2022 5:36 AM EDT) Jayme Armstrong MD NURSING TREATMENT ORDERABLES - BLOOD ADMIN Transfuse RBC (02/07/2022 5:36 AM EDT) Jayme Armstrong MD NURSING TREATMENT ORDERABLES - BLOOD ADMIN Prepare RBC (02/07/2022 4:55 AM EDT) athologist Signature Dispensed? Yes [facility] LABORATORY Specimen Anatomical Collection Method Collection Time Receive d Time (Source) Location / / Volume Laterality Blood 02/07/2022 4:55 AM 2 4:51 EDT AM EDT Jayme Armstrong MD BLOOD BANK ORDERABLES Performing Organization Address City/[facility]/ZIP [facility] [place] [place] [address] (ABNORMAL) Calcium Ionized Whole Blood, HONORIO (02/07/2022 3:00 AM EDT) Analysis Performed At Patho logist Time Signature pH Honorio 7.45 (H) 7.32 - [facility] 7.42 [facility] LABORATORY ICa Whole 1.14 (L) 1.15 - [facility] Blood 1.33 [facility] mmol/[facility] LABORATORY Comment: Note: ??Total bilirubin higher than 20 m g/dL may lead to falsely low ionized calcium. Specimen Anatomical Collection Method Collection Time Receive d Time (Source) Location / / Volume Laterality Blood ARTERIAL LINE / 02/07/2022 3:00 AM 2021 3:11 Unknown EDT AM EDT Resulting Agency Comment Spec In Lab Angelina Reynoso MD CHEMISTRY ORDERABLES Performing Organization Address [facility]/ZIP [facility] [place] [address] Fibrinogen (02/07/2022 2:10 AM EDT) P athologist Signature Fibrinogen 362 200 - 393 [facility] mg/dL [facility] LABORATORY Comment: A fibrinogen level >100 mg/dL is adequat e for hemostasis in most patients without underlying bleeding disorders. Specimen Anatomical Collection Method Collection Time Receive d Time (Source) Location / / Volume Laterality Blood 02/07/2022 2:10 AM 2 2:19 EDT AM EDT Resulting Agency Comment Spec In Lab Collette ELLIS HEMATOLOGY ORDERABLES Performing Organization Address [facility] Phon e Number [address] Prothrombin Time (02/07/2022 2:10 AM EDT) P athologist Signature PT 11.3 9.4 - 12.5 [facility] LABORATORY INR 1.0 [facility] LABORATORY Comment: An INR <2.0 [...] Collette ELLIS HEMATOLOGY ORDERABLES Performing Organization Address City/[facility]/ZIP [place] [address] (ABNORMAL) Platelet count (02/07/2022 2:10 AM EDT) athologist Signature Platelets 128 (L) 145 - 357 [facility] x10(3)/[facility] LABORATORY Plat Immature 7.0 0.0 - 7.4 [facility] % % [facility] LABORATORY Comment: Limitation of the Immature Platelet Frac tion (IPF)-May be less reliable when the platelet count is less than 82f426/u L due to statistical imprecision. The IPF [...] in a decreased state of production. References: [employer] The Clinical Value of the Immature Platelet Fraction (IPF) in Cell Recovery Document Number [id number] 12/2010 [employer] The Role of the Imm ature Platelet Fraction (IPF) in the Differential Diagnosis of Thrombocytopen ia, Document [id number] V05 P012/12 Specimen Anatomical Collection Method Collection Time Receive d Time (Source) Location / / Volume Laterality Blood 02/07/2022 2:10 AM 2 2:19 EDT AM EDT Resulting Agency Comment Spec In Lab Collette ELLIS HEMATOLOGY ORDERABLES Performing Organization Address City/State/ZIP Code Phon e Number [address] (ABNORMAL) Hematocrit (02/07/2022 2:10 AM EDT) athologist Signature Hematocrit 19.8 (L) 40.5 - [facility] [place] 48.5 % [facility] LABORATORY Specimen Anatomical Collection Method Collection Time Receive d Time (Source) Location / / Volume Laterality Blood 02/07/2022 2:10 AM 2 2:19 EDT AM EDT Resulting Agency Comment Spec In Lab Collette Liana Rob ELLIS HEMATOLOGY ORDERABLES Performing Organization Address City/State/[place] [address] (ABNORMAL) Hemoglobin (02/07/2022 2:10 AM EDT) P athologist Signature Hemoglobin 7.2 (L) 13.7 - 16.5 [facility] g/dL [facility] LABORATORY Specimen Anatomical Collection Method Collection Time Receive d Time (Source) Location / / Volume Laterality Blood 02/07/2022 2:10 AM 2 2:19 EDT AM EDT Resulting Agency Comment Spec In Lab Collette ELLIS HEMATOLOGY ORDERABLES Performing Organization Address City/[facility]/[place] [address] (ABNORMAL) BLOOD GAS 2 ARTERIAL (02/07/2022 12:52 AM EDT) Analysis Performed At Patho logist Time Signature pH Art 7.44 7.35 - [facility] 7.45 [facility] LABORATORY pCO2 Art 34 (L) 35 - 45 [facility] mmHg [facility] LABORATORY pO2 Art 81 (L) 85 - 104 [facility] mmHg [facility] LABORATORY HCO3 Art 22.4 20.0 - [facility] 26.0 [facility] mmol/L [facility] LABORATORY BE Art -1.7 -3.0 - 3.0 [facility] mmol/L [facility] LABORATORY Hgb Blood Gas 8.5 (L) 13.7 - [facility] 16.5 g/dL [facility] LABORATORY O2HB Art 93.4 (L) 94.0 - [facility] 97.0 % [facility] LABORATORY COHB Art 0.3 % [facility] LABORATORY Comment: Nonsmokers: 0.5-1.5% COHB Smokers: Variable, but usually less than 10% Toxic: 20-30% COHB Lethal: Greater than 60% COHB METHB Art 1.0 <=1.5 % [facility] LABORATORY Na Whole Blood 118 (Critical) 135 - 145 mmol/L [facility] LABORATORY Comment: Noted by electrical and instrument mechanic. K Whole Blood 5.6 (H) 3.5 - 5.0 mmol/L [facility] LABORATORY Comment: Please note: Patients with WBC >100,000 may have falsely elevated Potassium levels. Contact the Clinical Chemistry L aboratory if there are any questions. ICa Whole Blood 1.11 (L) 1.15 - 1.33 mmol/L [facility] LABORATORY Comment: Note: ??Total bilirubin higher than 20 m g/dL may lead to falsely low ionized calcium. CL Whole Blood 94 (L) 98 - 107 mmol/L [facility] LABORATORY Gluc Whole Bld 136 65 - 199 mg/dL [facility] LABORATORY Comment: Diabetes: >=200 mg/dL plus symp toms. Lactate WB 1.4 0.5 - 2.2 mmol/L [facility] LABORATORY FIO2 Art 21 % [facility] LABORATORY PF Ratio Art [address] [facility] LABORATORY Specimen Anatomical Collection Method Collection Time Receive d Time (Source) Location / / Volume Laterality Blood 02/07/2022 12:52 02/07/2022 AM EDT 12:52 AM EDT Jayme Armstrong MD CHEMISTRY ORDERABLES Performing Organization Address City/State/ZIP [place] [address] (ABNORMAL) Basic Metabolic Panel (non-fasting) (02/07/2022 12:47 AM EDT) P athologist Signature Glucose Lvl 136 65 - 199 [facility] mg/dL [facility] LABORATORY Comment: Diabetes: >=200 mg/dL plus symp toms BUN 38 (H) 10 - 20 mg/dL [facility] LABORATORY Creatinine 3.43 (H) 0.80 - 1.50 mg/dL [facility] LABORATORY Comment: result rechecked-sf Sodium 125 (L) 135 - 145 mmol/L [facility] LABORATORY Potassium 5.8 (H) 3.5 - 5.0 mmol/L [facility] LABORATORY Comment: Please note: ??Patients with WBC >100,00 0 may have falsely elevated Potassium levels. ??For accurate Potassium quantif ication in these patients send serum separator tube (gold top) for subsequent determinations. ??Contact the Clinical Chemistry Laboratory if there are any qu estions. Chloride 94 (L) 98 - 107 mmol/L [facility] LABORATORY CO2 22 22 - 31 mmol/L [facility] LABORATORY Anion Gap 9 5 - 15 mmol/L [facility] LABORATORY Calcium 7.6 (L) 8.5 - 10.5 mg/dL [facility] LABORATORY Comment: result rechecked-sf Estimated GFR 24 (L) >=60 mL/min/1.73 m?? [facility] LABORATORY Comment: This patient's estimated [...] Organization Address City/State/ZIP [place] [address] (ABNORMAL) Phosphorus (02/07/2022 12:47 AM EDT) P athologist Signature Phosphorus 5.0 (H) 2.5 - 4.5 [facility] mg/dL [facility] LABORATORY Specimen Anatomical Collection Method Collection Time Receive d Time (Source) Location / / Volume Laterality Blood 02/07/2022 12:47 02/07/2022 1:02 AM EDT AM EDT Resulting Agency Comment Spec In Lab Gela Novak MD CHEMISTRY ORDERABLES Performing Organization Address City/[facility]/ZIP Code Phon e Number [address] Magnesium (02/07/2022 12:47 AM EDT) P athologist Signature Magnesium 0.84 0.69 - 1.07 [facility] mmol/L [facility] LABORATORY Specimen Anatomical Collection Method Collection Time Receive d Time (Source) Location / / Volume Laterality Blood 02/07/2022 12:47 02/07/2022 1:02 AM EDT AM EDT Resulting Agency Comment Spec In Lab Gela Novak MD CHEMISTRY ORDERABLES Performing Organization Address [facility] [place] [address] Fibrinogen (02/06/2022 11:11 PM EDT) athologist Signature Fibrinogen 362 200 - 393 [facility] mg/dL [facility] LABORATORY Comment: A fibrinogen level >100 mg/dL is adequat e for hemostasis in most patients without underlying bleeding disorders. Specimen Anatomical Collection Method Collection Time Receive d Time (Source) Location / / Volume Laterality Blood 02/06/2022 11:11 02/06/2022 PM EDT 11:15 PM EDT Resulting Agency Comment Spec In Lab Jeanette Escamilla APRN HEMATOLOGY ORDERABLES Performing Organization Address City/[facility] [place] [address] Prothrombin Time (02/06/2022 11:11 PM EDT) P athologist Signature PT 11.0 9.4 - 12.5 [facility] LABORATORY INR 1.0 [facility] LABORATORY Comment: An INR <2.0 [...] Organization Address City/State/ZIP [place] [address] (ABNORMAL) Platelet count (02/06/2022 11:11 PM EDT) athologist Signature Platelets 125 (L) 145 - 357 [facility] x10(3)/[facility] LABORATORY Plat Immature 5.3 0.0 - 7.4 [facility] % % [facility] LABORATORY Comment: Limitation of the Immature Platelet Frac tion (IPF)-May be less reliable when the platelet count is less than 27v229/u L due to statistical imprecision. The IPF [...] in a decreased state of production. References: [employer] The Clinical Value of the Immature Platelet Fraction (IPF) in Cell Recovery Document Number 10-1143 12/2010 [employer] The Role of the Imm ature Platelet Fraction (IPF) in the Differential Diagnosis of Thrombocytopen ia, Document [id number] V012/10/13 P012/12 Specimen Anatomical Collection Method Collection Time Receive d Time (Source) Location / / Volume Laterality Blood 02/06/2022 11:11 02/06/2022 PM EDT 11:15 PM EDT Resulting Agency Comment Spec In Lab Jeanette Escamilla APRN HEMATOLOGY ORDERABLES Performing Organization Address City/[facility]/[place] [address] (ABNORMAL) Hematocrit (02/06/2022 11:11 PM EDT) P athologist Signature Hematocrit 20.8 (L) 40.5 - [facility] 48.5 % [facility] LABORATORY Specimen Anatomical Collection Method Collection Time Receive d Time (Source) Location / / Volume Laterality Blood 02/06/2022 11:11 02/06/2022 PM EDT 11:15 PM EDT Resulting Agency Comment Spec In Lab Jeanette Escamilla APRN HEMATOLOGY ORDERABLES Performing Organization Address City/[facility]/[place] [address] (ABNORMAL) Hemoglobin (02/06/2022 11:11 PM EDT) P athologist Signature Hemoglobin 7.7 (L) 13.7 - 16.5 [facility] g/dL [facility] Specimen Anatomical Collection Method Collection Time Receive d Time (Source) Location / / Volume Laterality Blood 02/06/2022 11:11 02/06/2022 PM EDT 11:15 PM EDT Resulting Agency Comment Spec In Lab Jeanette Escamilla APRN HEMATOLOGY ORDERABLES Performing Organization Address City/[facility]/[place] [address] (ABNORMAL) Sodium (02/06/2022 11:11 PM EDT) P athologist Signature Sodium 124 (L) 135 - 145 [facility] mmol/L [facility] Specimen Anatomical Collection Method Collection Time Receive d Time (Source) Location / / Volume Laterality Blood 02/06/2022 11:11 02/06/2022 PM EDT 11:15 PM EDT Resulting Agency Comment Spec In Lab Parrish Betancourt MD CHEMISTRY ORDERABLES Performing Organization Address City/[facility]/[place] [address] (ABNORMAL) Calcium Ionized Whole Blood, HONORIO (02/06/2022 10:51 PM EDT) Analysis Performed At Patho logist Time Signature pH Honorio 7.44 (H) 7.32 - [facility] 7.42 [facility] ICa Whole 1.07 (L) 1.15 - [facility] Blood 1.33 [facility] mmol/L [facility] LABORATORY Comment: Note: ??Total bilirubin higher than 20 m g/dL may lead to falsely low ionized calcium. Specimen Anatomical Collection Method Collection Time Receive d Time (Source) Location / / Volume Laterality Blood ARTERIAL LINE / 02/06/2022 10:51 02/07/20 22 Unknown PM EDT 11:06 PM EDT Resulting Agency Comment Spec In Lab Angelina Reynoso MD CHEMISTRY ORDERABLES Performing Organization Address City/[facility]/[place] [address] Fibrinogen (02/06/2022 10:20 PM EDT) P athologist Signature Fibrinogen 351 200 - 393 [facility] mg/dL [facility] Comment: A fibrinogen level >100 mg/dL is adequat e for hemostasis in most patients without underlying bleeding disorders. Specimen Anatomical Collection Method Collection Time Receive d Time (Source) Location / / Volume Laterality Blood 02/06/2022 10:20 02/06/2022 PM EDT 11:10 PM EDT Resulting Agency Comment Spec In Lab Jeanette Escamilla APRN HEMATOLOGY ORDERABLES Performing Organization Address City/[facility] [place] [address] Prothrombin Time (02/06/2022 10:20 PM EDT) P athologist Signature PT 11.1 9.4 - 12.5 [facility] LABORATORY INR 1.0 [facility] LABORATORY Comment: An INR <2.0 [...] Agency Comment Spec In Lab Jeanette Escamilla INSULATION WORKER HEMATOLOGY ORDERABLES Performing Organization Address City/State/ZIP [place] [address] (ABNORMAL) Platelet count (02/06/2022 10:20 PM EDT) P athologist Signature Platelets 126 (L) 145 - 357 [facility] x10(3)/[facility] LABORATORY Plat Immature 5.9 0.0 - 7.4 [facility] [place] % % [facility] LAB[facility] Comment: Limitation of the Immature Platelet Frac tion (IPF)-May be less reliable when the platelet count is less than 86l964/u L due to statistical imprecision. The IPF [...] in a decreased state of production. References: [employer] The Clinical Value of the Immature Platelet Fraction (IPF) in Cell Recovery Document Number [id number] 12/2010 [employer] The Role of the Imm ature Platelet Fraction (IPF) in the Differential Diagnosis of Thrombocytopen ia, Document [id number] V012/10/13 P012/12 Specimen Anatomical Collection Method Collection Time Receive d Time (Source) Location / / Volume Laterality Blood 02/06/2022 10:20 02/06/2022 PM EDT 11:10 PM EDT Resulting Agency Comment Spec In Lab Jeanette Escamilla INSULATION WORKER HEMATOLOGY ORDERABLES Performing Organization Address City/State/ZIP Code Phon [place] [address] (ABNORMAL) Hematocrit (02/06/2022 10:20 PM EDT) athologist Signature Hematocrit 20.5 (L) 40.5 - [facility] 48.5 % [facility] Specimen Anatomical Collection Method Collection Time Receive d Time (Source) Location / / Volume Laterality Blood 02/06/2022 10:20 02/06/2022 PM EDT 11:10 PM EDT Resulting Agency Comment Spec In Lab Jeanette Escamilla APRN HEMATOLOGY ORDERABLES Performing Organization Address City/[facility]/ZIP Code Phon e Number [address] (ABNORMAL) Hemoglobin (02/06/2022 10:20 PM EDT) athologist Signature Hemoglobin 7.6 (L) 13.7 - 16.5 [facility] g/dL [facility] Specimen Anatomical Collection Method Collection Time Receive d Time (Source) Location / / Volume Laterality Blood 02/06/2022 10:20 02/06/2022 PM EDT 11:10 PM EDT Resulting Agency Comment Spec In Lab Jeanette Escamilla APRN HEMATOLOGY ORDERABLES Performing Organization Address City/[facility]/[place] [address] Fibrinogen (02/06/2022 7:45 PM EDT) athologist Signature Fibrinogen 321 200 - 393 [facility] mg/dL [facility] Comment: A fibrinogen level >100 mg/dL is adequat e for hemostasis in most patients without underlying bleeding disorders. Specimen Anatomical Collection Method Collection Time Receive d Time (Source) Location / / Volume Laterality Blood 02/06/2022 7:45 PM 7:56 EDT PM EDT Resulting Agency Comment Spec In Lab Jeanette Escamilla APRN HEMATOLOGY ORDERABLES Performing Organization Address City/[facility]/[place] [address] Prothrombin Time (02/06/2022 7:45 PM EDT) P athologist Signature PT 11.0 9.4 - 12.5 [facility] sec [facility] LABOR[facility]ORY INR 1.0 [facility] LABORATORY Comment: An INR <2.0 [...] Organization Address City/State/ZIP [place] [address] (ABNORMAL) Platelet count (02/06/2022 7:45 PM EDT) athologist Signature Platelets 137 (L) 145 - 357 [facility] x10(3)/[facility] LABORATORY Plat Immature 4.8 0.0 - 7.4 [facility] % % [facility] LAB[facility] Comment: Limitation of the Immature Platelet Frac tion (IPF)-May be less reliable when the platelet count is less than 10e613/u L due to statistical imprecision. The IPF [...] in a decreased state of production. References: [employer] The Clinical Value of the Immature Platelet Fraction (IPF) in Cell Recovery Document Number [id number] 12/2010 [employer] The Role of the Imm ature Platelet Fraction (IPF) in the Differential Diagnosis of Thrombocytopen ia, Document [id number] V05/07/14 P05 Specimen Anatomical Collection Method Collection Time Receive d Time (Source) Location / / Volume Laterality Blood 02/06/2022 7:45 PM 2 7:56 EDT PM EDT Resulting Agency Comment Spec In Lab Jeanette Escamilla APRN HEMATOLOGY ORDERABLES Performing Organization Address City/[facility]/[place] [address] (ABNORMAL) Hematocrit (02/06/2022 7:45 PM EDT) P athologist Signature Hematocrit 22.1 (L) 40.5 - [facility] 48.5 % [facility] Specimen Anatomical Collection Method Collection Time Receive d Time (Source) Location / / Volume Laterality Blood 02/06/2022 7:45 PM 2 7:56 EDT PM EDT Resulting Agency Comment Spec In Lab Jeanette Escamilla APRN HEMATOLOGY ORDERABLES Performing Organization Address City/[facility]/[place] [address] (ABNORMAL) Hemoglobin (02/06/2022 7:45 PM EDT) P athologist Signature Hemoglobin 8.1 (L) 13.7 - 16.5 [facility] g/dL [facility] Specimen Anatomical Collection Method Collection Time Receive d Time (Source) Location / / Volume Laterality Blood 02/06/2022 7:45 PM 2 7:56 EDT PM EDT Resulting Agency Comment Spec In Lab Jeanette Escamilla INSULATION WORKER HEMATOLOGY ORDERABLES Performing Organization Address City/[facility]/ZIP [facility] [place] [place] [address] (ABNORMAL) Electrolytes panel (02/06/2022 7:45 PM EDT) P athologist Signature Sodium 123 (L) 135 - 145 [facility] mmol/L [facility] Potassium 6.1 3.5 - 5.0 [facility] (Critical) mmol/L [facility] Comment: Called by: renuka, Read back by: dixie diego, Date/Time:02/06/22 20:32. Please note: ??Patients with WBC >100,00 0 may have falsely elevated Potassium levels. ??For accurate Potassium quantif ication in these patients send serum separator tube (gold top) for subsequent determinations. ??Contact the Clinical Chemistry Laboratory if there are any qu estions. Chloride 94 (L) 98 - 107 mmol/L [facility] LABORATORY CO2 21 (L) 22 - 31 mmol/L [facility] Anion Gap 8 5 - 15 mmol/L [facility] LABORATORY Specimen Anatomical Collection Method Collection Time Receive d Time (Source) Location / / Volume Laterality Blood 02/06/2022 7:45 PM 7:56 EDT PM EDT Resulting Agency Comment Spec In Lab Angelina Reynoso MD CHEMISTRY ORDERABLES Performing Organization Address City/State/ZIP [place] [address] (ABNORMAL) BLOOD GAS 2 ARTERIAL (02/06/2022 7:44 PM EDT) Analysis Performed At Patho logist Time Signature pH Art 7.44 7.35 - [facility] 7.45 [facility] LAB[facility]ORY pCO2 Art 31 (L) 35 - 45 [facility] mmHg [facility] LAB[facility] pO2 Art 86 85 - 104 [facility] mmHg [facility] LAB[facility] HCO3 Art 20.4 20.0 - [facility] 26.0 [facility] mmol/L [facility] LABORATORY BE Art -3.7 (L) -3.0 - 3.0 [facility] mmol/L [facility] Hgb Blood Gas 9.2 (L) 13.7 - [facility] 16.5 g/dL [facility] O2HB Art 94.1 94.0 - [facility] 97.0 % [facility] LAB[facility] COHB Art 0.3 % [facility] LAB[facility] Comment: Nonsmokers: 0.5-1.5% COHB Smokers: Variable, but usually less than 10% Toxic: 20-30% COHB Lethal: Greater than 60% COHB METHB Art 0.9 <=1.5 % [facility] LABORATORY Na Whole Blood 118 (Critical) 135 - 145 mmol/L [facility] LABOR[facility] Comment: Noted by electrical and instrument mechanic. K Whole Blood 5.8 (H) 3.5 - 5.0 mmol/L [facility] LABORATORY Comment: Please note: Patients with WBC >100,000 may have falsely elevated Potassium levels. Contact the Clinical Chemistry L aboratory if there are any questions. ICa Whole Blood 1.03 (L) 1.15 - 1.33 mmol/L [facility] LABORATORY Comment: Note: ??Total bilirubin higher than 20 m g/dL may lead to falsely low ionized calcium. CL Whole Blood 94 (L) 98 - 107 mmol/L [facility] LABORATORY Gluc Whole Bld 143 65 - 199 mg/dL [facility] LABORATORY Comment: Diabetes: >=200 mg/dL plus symp toms. Lactate WB 1.5 0.5 - 2.2 mmol/L [facility] LABORATORY FIO2 Art 21 % [facility] LABORATORY PF Ratio Art [address] [facility] LABORATORY Specimen Anatomical Collection Method Collection Time Receive d Time (Source) Location / / Volume Laterality Blood 02/06/2022 7:44 PM 7:44 EDT PM EDT Jayme Armstrong MD CHEMISTRY ORDERABLES Performing Organization Address City/State/ZIP [place] [address] (ABNORMAL) BLOOD GAS 2 ARTERIAL (02/06/2022 5:47 PM EDT) Analysis Performed At Patho logist Time Signature pH Art 7.42 7.35 - [facility] 7.45 [facility] LABOR[facility]ORY pCO2 Art 30 (L) 35 - 45 [facility] LABORATORY pO2 Art 68 (L) 85 - 104 [facility] LABORATORY HCO3 Art 19.2 (L) 20.0 - [facility] 26.0 [facility] mmol/[facility] LABORATORY BE Art -5.2 (L) -3.0 - 3.0 [facility] mmol/L [facility] LABOR[facility] Hgb Blood Gas 9.3 (L) 13.7 - [facility] 16.5 g/dL [facility] O2HB Art 91.8 (L) 94.0 - [facility] 97.0 % [facility] LABOR[facility]ORY COHB Art 0.3 % [facility] Comment: Nonsmokers: 0.5-1.5% COHB Smokers: Variable, but usually less than 10% Toxic: 20-30% COHB Lethal: Greater than 60% COHB METHB Art 0.9 <=1.5 % [facility] LABORATORY Na Whole Blood 117 (Critical) 135 - 145 mmol/L [facility] Comment: Noted by electrical and instrument mechanic. K Whole Blood 6.0 (H) 3.5 - 5.0 mmol/L [facility] LABORATORY Comment: Please note: Patients with WBC >100,000 may have falsely elevated Potassium levels. Contact the Clinical Chemistry L aboratory if there are any questions. ICa Whole Blood 0.98 (L) 1.15 - 1.33 mmol/L [facility] LABORATORY Comment: Note: ??Total bilirubin higher than 20 m g/dL may lead to falsely low ionized calcium. CL Whole Blood 93 (L) 98 - 107 mmol/L [facility] LABORATORY Gluc Whole Bld 131 65 - 199 mg/dL [facility] LABORATORY Comment: Diabetes: >=200 mg/dL plus symp toms. Lactate WB 1.8 0.5 - 2.2 mmol/L [facility] LABORATORY FIO2 Art 21 % [facility] LABORATORY PF Ratio Art [address] [facility] LABORATORY Specimen Anatomical Collection Method Collection Time Receive d Time (Source) Location / / Volume Laterality Blood 02/06/2022 5:47 PM 5:47 EDT PM EDT Jayme Armstrong MD CHEMISTRY ORDERABLES Performing Organization Address City/State/ZIP [place] [address] POCT Glucose (02/06/2022 5:44 PM EDT) athologist Signature POC Glucose 153 65 - 199 [facility] mg/dL [facility] LAB[facility] Comment: Supplemental ranges: <140 mg/dL before meals <180 mg/dL all other times of the day Specimen Anatomical Collection Method Collection Time Receive d Time (Source) Location / / Volume Laterality Blood 02/06/2022 5:44 PM 2 5:44 EDT PM EDT Jayme Armstrong MD POINT OF CARE TEST ORDERABLE S Performing Organization Address [facility] [address] Fibrinogen (02/06/2022 4:33 PM EDT) P athologist Signature Fibrinogen 300 200 - 393 [facility] mg/dL [facility] LABOR[facility] Comment: OR Result called by [...] Armstrong MD HEMATOLOGY ORDERABLES Performing Organization Address [facility] [place] [address] APTT (02/06/2022 4:33 PM EDT) P athologist Signature PTT 25 25 - 37 sec [facility] LABORATORY Comment: OR Result called [...] Organization Address City/State/[place] [address] Prothrombin Time (02/06/2022 4:33 PM EDT) P athologist Signature PT 11.2 9.4 - 12.5 [facility] LABORATORY Comment: OR Result called by ?? PARSAD OR Result s read back by: ? Divina Otero at 2022-02-06 16:54:39 INR 1.0 [facility] LABORATORY Comment: OR Result called by [...] Armstrong MD HEMATOLOGY ORDERABLES Performing Organization Address City/[facility]/[place] [address] (ABNORMAL) Phosphorus (02/06/2022 4:20 PM EDT) P athologist Signature Phosphorus 7.4 (H) 2.5 - 4.5 [facility] mg/dL [facility] LABORATORY Specimen Anatomical Collection Method Collection Time Receive d Time (Source) Location / / Volume Laterality Blood Venous Draw / 02/06/2022 4:20 PM 02/07/20 22 6:05 Unknown EDT PM EDT Resulting Agency Comment Spec In Lab Jeanette Escamilla APRN CHEMISTRY ORDERABLES Performing Organization Address City/State/ZIP Code Phon e Number [place] [id number] [facility] LAB[address]ORY Drive Magnesium (02/06/2022 4:20 PM EDT) P athologist Signature Magnesium 0.93 0.69 - 1.07 [facility] mmol/L [facility] LABORATORY Specimen Anatomical Collection Method Collection Time Receive d Time (Source) Location / / Volume Laterality Blood Venous Draw / 02/06/2022 4:20 PM 02/07/20 6:05 Unknown EDT PM EDT Resulting Agency Comment Spec In Lab Jeanette Escamilla APRN CHEMISTRY ORDERABLES Performing Organization Address City/State/ZIP Code Phon e Number [address] (ABNORMAL) Differential, Automated (02/06/2022 4:20 PM EDT) Patholo gist Method Time Signature Neutrophils % 56.4 % [facility] LABORATORY Neutr Abs (ANC) 13.74 (H) 1.70 - [facility] 6.10 [facility] x10(3)/[facility] LABORATORY Lymphocytes % 9.1 % [facility] LABORATORY Lymphocytes Abs 2.2 0.9 - 3.2 [facility] x10(3)/[facility] LABORATORY Monocytes % 13.3 % [facility] LABORATORY Monocyte Abs 3.2 (H) 0.3 - 0.9 [facility] x10(3)/[facility] LABORATORY Eosinophils % 1.1 % [facility] LABORATORY Eosinophils Abs 0.3 0.0 - 0.4 [facility] x10(3)/[facility] LABORATORY Basophils % 1.1 % [facility] LABORATORY Basophils Abs 0.3 (H) 0.0 - 0.1 [facility] x10(3)/[facility] LABORATORY Immature Gran % 19.00 % [facility] LABORATORY Comment: Immature granulocytes(IG's)percentage an d absolute count will include metamyelocytes, myelocytes, and promyelo cytes. Blood smears from CBCs yielding IG's will be scanned manually for concor dance. If this scan disagrees with the automated IG or if promyelocytes are not ed, a manual differential will be performed. Gemini Gran Abs 4.64 (H) 0.00 - 0.04 x10(3)/[facility] LABORATORY Specimen Anatomical Collection Method Collection Time Receive d Time (Source) Location / / Volume Laterality Blood 02/06/2022 4:20 PM 4:33 EDT PM EDT Resulting Agency Comment Spec In Lab Jayme Armstrong MD HEMATOLOGY ORDERABLES Performing Organization Address City/State/ZIP [place] [address] (ABNORMAL) Hemogram (02/06/2022 4:20 PM EDT) athologist Signature WBC 24.4 (H) 4.0 - 9.5 [facility] x10(3)/[facility] LABORATORY RBC 2.87 (L) 4.58 - [facility] 5.54 [facility] x10(6)/[facility] LABORATORY Hemoglobin 8.5 (L) 13.7 - [facility] 16.5 g/dL [facility] LABORATORY Hematocrit 23.4 (L) 40.5 - [facility] 48.5 % [facility] LABORATORY Comment: This result has been called to DIVINA MORA by Tamara Hernandez on 02 06 2022 at 1653, and has been read back. MCV 81.5 (L) 82.9 - 93.1 [facility] LABORATORY MCH 29.6 27.5 - 32.1 pg [facility] LABORATORY MCHC 36.3 (H) 32.0 - 35.7 g/dL [facility] LABORATORY Platelets 110 (L) 145 - 357 x10(3)/[facility] LABORATORY RDWSD 39.9 36.0 - 45.0 [facility] LABORATORY RDWCV 13.9 (H) 11.4 - 13.8 % [facility] LABORATORY MPV 9.7 7.6 - 12.9 [facility] LABORATORY nRBC % Auto 2.0 % [facility] LABORATORY nRBC Abs Auto 0.500 (H) 0.000 - 0.000 x10(3)/mcL M [facility] LABORATORY Specimen Anatomical Collection Method Collection Time Receive d Time (Source) Location / / Volume Laterality Blood 02/06/2022 4:20 PM 2 4:33 EDT PM EDT Resulting Agency Comment Spec In Lab Jayme Armstrong MD HEMATOLOGY ORDERABLES Performing Organization Address City/State/ZIP [place] [address] (ABNORMAL) Basic Metabolic Panel (non-fasting) (02/06/2022 4:20 PM EDT) athologist Signature Glucose Lvl 117 65 - 199 [facility] mg/dL [facility] LABORATORY Comment: Diabetes: >=200 mg/dL plus symp toms BUN 47 (H) 10 - 20 mg/dL [facility] LABORATORY Creatinine 4.73 (H) 0.80 - 1.50 mg/dL [facility] LABORATORY Sodium 122 (L) 135 - 145 mmol/L [facility] LABORATORY Potassium 6.1 (Critical) 3.5 - 5.0 mmol/L [facility] LABORATORY Comment: Called by [facility]/Read back by Virgie gunter/02/06/2022 @ [phone] Please note: ??Patients with WBC >100,00 0 may have falsely elevated Potassium levels. ??For accurate Potassium quantif ication in these patients send serum separator tube (gold top) for subsequent determinations. ??Contact the Clinical Chemistry Laboratory if there are any qu estions. Chloride 92 (L) 98 - 107 mmol/L [facility] LABORATORY CO2 21 (L) 22 - 31 mmol/L [facility] LABORATORY Anion Gap 9 5 - 15 mmol/L [facility] LABORATORY Calcium 6.7 (Critical) 8.5 - 10.5 mg/dL [facility] LABORATORY Comment: Called by [facility]/Read back by Soila Castle/02/06/2022 @ 1716 Estimated GFR 16 (L) >=60 mL/min/1.73 m?? [facility] LABORATORY Comment: This patient's estimated [...] Organization Address City/State/ZIP [place] [address] (ABNORMAL) BLOOD GAS 2 ARTERIAL (02/06/2022 3:54 PM EDT) Analysis Performed At Patho logist Time Signature pH Art 7.37 7.35 - [facility] 7.45 [facility] LABORATORY pCO2 Art 38 35 - 45 [facility] LABORATORY pO2 Art 325 (H) 85 - 104 [facility] LABORATORY HCO3 Art 21.8 20.0 - [facility] 26.0 [facility] mmol/L [facility] LABORATORY BE Art -3.4 (L) -3.0 - 3.0 [facility] mmol/L [facility] LABORATORY Hgb Blood Gas 8.8 (L) 13.7 - [facility] 16.5 g/dL [facility] LABORATORY O2HB Art 98.0 (H) 94.0 - [facility] 97.0 % [facility] LABORATORY COHB Art 1.1 % [facility] LABORATORY Comment: Nonsmokers: 0.5-1.5% COHB Smokers: Variable, but usually less than 10% Toxic: 20-30% COHB Lethal: Greater than 60% COHB METHB Art 0.3 <=1.5 % [facility] Na Whole Blood 117 (Critical) 135 - 145 mmol/L [facility] LABORATORY Comment: Critical notified to Amber Ray by ins trument highwall drill operator immediately following run time. K Whole Blood 5.7 (H) 3.5 - 5.0 mmol/L [facility] Comment: Please note: Patients with WBC >100,000 may have falsely elevated Potassium levels. Contact the Clinical Chemistry L aboratory if there are any questions. ICa Whole Blood 1.00 (L) 1.15 - 1.33 mmol/L [facility] Comment: Note: ??Total bilirubin higher than 20 m g/dL may lead to falsely low ionized calcium. CL Whole Blood 93 (L) 98 - 107 mmol/L [facility] Gluc Whole Bld 115 65 - 199 mg/dL [facility] Comment: Diabetes: >=200 mg/dL plus symp toms. Lactate WB 1.4 0.5 - 2.2 mmol/L [facility] Specimen Anatomical Collection Method Collection Time Receive d Time (Source) Location / / Volume Laterality Blood 02/06/2022 3:54 PM 3:54 EDT PM EDT Jayme Armstrong MD CHEMISTRY ORDERABLES Performing Organization Address City/State/ZIP Code Phon e Number [place] [id number]OS[address] LAB[address]ORY [address] IR Arteriogram Lower Extremity [...] 2. Flat for 2 hours, following Right INFORMATION SERVICES MANAGER Mynx closure deployment 3. Monitor for Right [...] anesthesia/sedation: General an esthesia Anesthesia/sedation administered by: [facility] Total intra-service sedation time (minut es): Please refer to anesthesia notes for further details. Access Local anesthesia was administered. The v essel was sonographically evaluated and judged to be patent. Real time ultrasoun d was used to visualize needle entry into the vessel and a permanent image wa s stored. A 5 Kosovan sheath was placed. Vessel accessed: Right common femoral ar timo Access technique: Micropuncture set with 21 gauge needle Left pelvic angiography The left pelvic arterial system was cath eterized using a 150 cm 0.035 3J guidewire, 5 Kosovan Berenstein catheter, 3 Kosovan renegade STC microcatheter and wire. Vessel catheterized: Common iliac artery . Findings: Angiography not performed Vessel catheterized: External iliac sials ry. Findings: Patent distal external iliac a [...] who have questions please contact the health care associate that requested your imaging first. [...] 2. Flat for 2 hours, following Right INFORMATION SERVICES MANAGER Mynx closure deployment 3. Monitor for Right [...] anesthesia/sedation: General an esthesia Anesthesia/sedation administered by: [facility] Total intra-service sedation time (minut es): Please refer to anesthesia notes for further details. Access Local anesthesia was administered. The v essel was sonographically evaluated and judged to be patent. Real time ultrasoun d was used to visualize needle entry into the vessel and a permanent image wa s stored. A 5 Kosovan sheath was placed. Vessel accessed: Right common femoral ar timo Access technique: Micropuncture set with 21 gauge needle Left pelvic angiography The left pelvic arterial system was cath eterized using a 150 cm 0.035 3J guidewire, 5 Kosovan Berenstein catheter, 3 Kosovan renegade STC microcatheter and wire. Vessel catheterized: [...] ho have questions please contact the health care associate that requested your imaging first. Electronically signed by: Nicole escobar MD, Radiology [place] ([phone]), at 02/08/2022 3:14 PM Jeanette Escamilla APRN IMG IR ORDERABLES POCT Glucose (02/06/2022 12:16 PM EDT) athologist Signature POC Glucose 167 65 - 199 [facility] mg/dL [facility] Comment: Supplemental ranges: <140 mg/dL before meals <180 mg/dL all other times of the day Specimen Anatomical Collection Method Collection Time Receive d Time (Source) Location / / Volume Laterality Blood 02/06/2022 12:16 02/06/2022 PM EDT 12:16 PM EDT Jayme Armstrong MD POINT OF CARE TEST ORDERABLE S Performing Organization Address City/State/[place] [address] Fibrinogen (02/06/2022 11:30 AM EDT) athologist Signature Fibrinogen 279 200 - 393 [facility] mg/dL [facility] Comment: A fibrinogen level >100 mg/dL is adequat e for hemostasis in most patients without underlying bleeding disorders. Specimen Anatomical Collection Method Collection Time Receive d Time (Source) Location / / Volume Laterality Blood 02/06/2022 11:30 02/06/2022 AM EDT 11:36 AM EDT Resulting Agency Comment Spec In Lab Jeanette Escamilla APRN HEMATOLOGY ORDERABLES Performing Organization Address City/[facility]/ZIP [facility] [place] [place] [address] Prothrombin Time (02/06/2022 11:30 AM EDT) athologist Signature PT 11.6 9.4 - 12.5 [facility] LABORATORY INR 1.0 [facility] Comment: An INR <2.0 [...] Organization Address City/State/ZIP [place] [address] Platelet count (02/06/2022 11:30 AM EDT) P athologist Signature Platelets 164 145 - 357 [facility] x10(3)/[facility] LABORATORY Plat Immature 4.2 0.0 - 7.4 [facility] % % [facility] Comment: Limitation of the Immature Platelet Frac tion (IPF)-May be less reliable when the platelet count is less than 63s404/u L due to statistical imprecision. The IPF [...] in a decreased state of production. References: [employer] The Clinical Value of the Immature Platelet Fraction (IPF) in Cell Recovery Document Number [id number] 12/2010 [employer] The Role of the Imm ature Platelet Fraction (IPF) in the Differential Diagnosis of Thrombocytopen ia, Document MKT-10-1209 V012/10/13 P012/12 Specimen Anatomical Collection Method Collection Time Receive d Time (Source) Location / / Volume Laterality Blood 02/06/2022 11:30 02/06/2022 AM EDT 11:36 AM EDT Resulting Agency Comment Spec In Lab Jeanette Escamilla APRN HEMATOLOGY ORDERABLES Performing Organization Address City/[facility]/[place] [address] (ABNORMAL) Hematocrit (02/06/2022 11:30 AM EDT) P athologist Signature Hematocrit 24.7 (L) 40.5 - [facility] 48.5 % [facility] Specimen Anatomical Collection Method Collection Time Receive d Time (Source) Location / / Volume Laterality Blood 02/06/2022 11:30 02/06/2022 AM EDT 11:36 AM EDT Resulting Agency Comment Spec In Lab Jeanette Escamilla APRN HEMATOLOGY ORDERABLES Performing Organization Address [facility]/[place] [address] (ABNORMAL) Hemoglobin (02/06/2022 11:30 AM EDT) P athologist Signature Hemoglobin 8.7 (L) 13.7 - 16.5 [facility] g/dL [facility] Specimen Anatomical Collection Method Collection Time Receive d Time (Source) Location / / Volume Laterality Blood 02/06/2022 11:30 02/06/2022 AM EDT 11:36 AM EDT Resulting Agency Comment Spec In Lab Jeanette Escamilla APRN HEMATOLOGY ORDERABLES Performing Organization Address City/[facility]/[place] [address] (ABNORMAL) Sodium (02/06/2022 11:30 AM EDT) P athologist Signature Sodium 122 (L) 135 - 145 [facility]/L [facility] Specimen Anatomical Collection Method Collection Time Receive d Time (Source) Location / / Volume Laterality Blood 02/06/2022 11:30 02/06/2022 AM EDT 11:36 AM EDT Resulting Agency Comment Spec In Lab Parrish Betancourt MD CHEMISTRY ORDERABLES Performing Organization Address City/[facility]/ZIP Code Phon e Number [address] Prepare RBC (02/06/2022 10:35 AM EDT) P athologist Signature Dispensed? Yes [facility] Specimen Anatomical Collection Method Collection Time Receive d Time (Source) Location / / Volume Laterality Blood 02/06/2022 10:35 02/06/2022 AM EDT 10:32 AM EDT Jeanette Juan Andi AVENDAÑO BLOOD BANK ORDERABLES Performing Organization Address City/State/[place] [address] Fibrinogen (02/06/2022 9:35 AM EDT) P athologist Signature Fibrinogen 279 200 - 393 [facility] mg/dL [facility] Comment: A fibrinogen level >100 mg/dL is adequat e for hemostasis in most patients without underlying bleeding disorders. Specimen Anatomical Collection Method Collection Time Receive d Time (Source) Location / / Volume Laterality Blood 02/06/2022 9:35 AM 9:44 EDT AM EDT Resulting Agency Comment Spec In Lab Jeanette Escamilla APRN HEMATOLOGY ORDERABLES Performing Organization Address City/State/[place] [address] Prothrombin Time (02/06/2022 9:35 AM EDT) P athologist Signature PT 11.4 9.4 - 12.5 [facility] LABORATORY INR 1.0 [facility] Comment: An INR <2.0 [...] Agency Comment Spec In Lab Jeanette Escamilla INSULATION WORKER HEMATOLOGY ORDERABLES Performing Organization Address City/State/ZIP Code Phon e Number [address] Platelet count (02/06/2022 9:35 AM EDT) athologist Signature Platelets 174 145 - 357 [facility] x10(3)/[facility] LABORATORY Plat Immature 4.6 0.0 - 7.4 [facility] % % [facility] Comment: Limitation of the Immature Platelet Frac tion (IPF)-May be less reliable when the platelet count is less than 11q236/u L due to statistical imprecision. The IPF [...] in a decreased state of production. References: [employer] The Clinical Value of the Immature Platelet Fraction (IPF) in Cell Recovery Document Number [id number] 12/2010 [employer] The Role of the Imm ature Platelet Fraction (IPF) in the Differential Diagnosis of Thrombocytopen ia, Document MKT-10-1209 V05/07/14 P0514 Specimen Anatomical Collection Method Collection Time Receive d Time (Source) Location / / Volume Laterality Blood 02/06/2022 9:35 AM 9:44 EDT AM EDT Resulting Agency Comment Spec In Lab Jeanette Escamilla INSULATION WORKER HEMATOLOGY ORDERABLES Performing Organization Address City/State/[place] [address] (ABNORMAL) Hematocrit (02/06/2022 9:35 AM EDT) P athologist Signature Hematocrit 25.9 (L) 40.5 - [facility] 48.5 % [facility] Specimen Anatomical Collection Method Collection Time Receive d Time (Source) Location / / Volume Laterality Blood 02/06/2022 9:35 AM 9:44 EDT AM EDT Resulting Agency Comment Spec In Lab Jeanette Escamilla APRN HEMATOLOGY ORDERABLES Performing Organization Address City/[facility]/ZIP [facility] [place] [address] (ABNORMAL) Hemoglobin (02/06/2022 9:35 AM EDT) P athologist Signature Hemoglobin 9.0 (L) 13.7 - 16.5 [facility] g/dL [facility] Specimen Anatomical Collection Method Collection Time Receive d Time (Source) Location / / Volume Laterality Blood 02/06/2022 9:35 AM 2 9:44 EDT AM EDT Resulting Agency Comment Spec In Lab Jeanette Escamilla APRN HEMATOLOGY ORDERABLES Performing Organization Address City/[facility]/[place] [address] Transfuse RBC (02/06/2022 9:29 [...] Signature pH Art 7.46 (H) 7.35 - [facility] 7.45 [facility] pCO2 Art 31 (L) 35 - 45 [facility] LABORATORY pO2 Art 89 85 - 104 [facility] LABORATORY HCO3 Art 21.5 20.0 - [facility] 26.0 [facility] mmol/[facility] LABORATORY BE Art -2.3 -3.0 - 3.0 [facility] mmol/L [facility] Hgb Blood Gas 9.5 (L) 13.7 - [facility] 16.5 g/dL [facility] O2HB Art 95.5 94.0 - [facility] 97.0 % [facility] COHB Art 0.3 % [facility] Comment: Nonsmokers: 0.5-1.5% COHB Smokers: Variable, but usually less than 10% Toxic: 20-30% COHB Lethal: Greater than 60% COHB METHB Art 0.8 <=1.5 % [facility] Na Whole Blood 115 (Critical) 135 - 145 mmol/L [facility] Comment: Noted by electrical and instrument mechanic. K Whole Blood 5.7 (H) 3.5 - 5.0 mmol/L [facility] Comment: Please note: Patients with WBC >100,000 may have falsely elevated Potassium levels. Contact the Clinical Chemistry L aboratory if there are any questions. ICa Whole Blood 0.93 (L) 1.15 - 1.33 mmol/L [facility] Comment: Note: ??Total bilirubin higher than 20 m g/dL may lead to falsely low ionized calcium. CL Whole Blood 92 (L) 98 - 107 mmol/L [facility] Gluc Whole Bld 138 65 - 199 mg/dL [facility] Comment: Diabetes: >=200 mg/dL plus symp toms. Lactate WB 1.7 0.5 - 2.2 mmol/L [facility] FIO2 Art 21 % [facility] PF Ratio Art [address] [facility] Specimen Anatomical Collection Method Collection Time Receive d Time (Source) Location / / Volume Laterality Blood 02/06/2022 9:06 AM 9:06 EDT AM EDT Dunia Han DO CHEMISTRY ORDERABLES Performing Organization Address City/State/ZIP [place] [address] (ABNORMAL) Phosphorus (02/06/2022 9:00 AM EDT) P athologist Signature Phosphorus 7.1 (H) 2.5 - 4.5 [facility] mg/dL [facility] Specimen Anatomical Collection Method Collection Time Receive d Time (Source) Location / / Volume Laterality Blood 02/06/2022 9:00 AM 2 9:04 EDT AM EDT Resulting Agency Comment Spec In Lab Angelina Reynoso MD CHEMISTRY ORDERABLES Performing Organization Address City/State/ZIP Code Phon e Number [address] Magnesium (02/06/2022 9:00 AM EDT) P athologist Signature Magnesium 0.99 0.69 - 1.07 [facility] mmol/L [facility] Specimen Anatomical Collection Method Collection Time Receive d Time (Source) Location / / Volume Laterality Blood 02/06/2022 9:00 AM 2 9:04 EDT AM EDT Resulting Agency Comment Spec In Lab Angelina Reynoso MD CHEMISTRY ORDERABLES Performing Organization Address City/State/[place] [address] (ABNORMAL) Creatinine (02/06/2022 9:00 AM EDT) Analysis Performed At Patho logist Time Signature Creatinine 4.64 (H) 0.80 - [facility] [place] 1.50 mg/dL [facility] Estimated GFR 16 (L) >=60 [facility] mL/min/1.[address] LABORATORY Comment: This patient's estimated GFR [...] Reynoso MD CHEMISTRY ORDERABLES Performing Organization Address City/[facility]/[place] [address] (ABNORMAL) BUN (02/06/2022 9:00 AM EDT) P athologist Signature BUN 44 (H) 10 - 20 [facility] mg/dL [facility] Specimen Anatomical Collection Method Collection Time Receive d Time (Source) Location / / Volume Laterality Blood 02/06/2022 9:00 AM 2 9:04 EDT AM EDT Resulting Agency Comment Spec In Lab Angelina Reynoso MD CHEMISTRY ORDERABLES Performing Organization Address [facility] [place] [address] (ABNORMAL) Electrolytes panel (02/06/2022 9:00 AM EDT) P athologist Signature Sodium 123 (L) 135 - 145 [facility] mmol/L [facility] Potassium 6.0 (H) 3.5 - 5.0 [facility] mmol/L [facility] Comment: Please note: ??Patients with WBC >100,00 0 may have falsely elevated Potassium levels. ??For accurate Potassium quantif ication in these patients send serum separator tube (gold top) for subsequent determinations. ??Contact the Clinical Chemistry Laboratory if there are any qu estions. Chloride 91 (L) 98 - 107 mmol/L [facility] CO2 23 22 - 31 mmol/L [facility] Anion Gap 9 5 - 15 mmol/L [facility] Specimen Anatomical Collection Method Collection Time Receive d Time (Source) Location / / Volume Laterality Blood 02/06/2022 9:00 AM 2 9:04 EDT AM EDT Resulting Agency Comment Spec In Lab Angelina Reynoso MD CHEMISTRY ORDERABLES Performing Organization Address City/State/[place] [address] Transfuse RBC (02/06/2022 8:38 AM EDT) Dunia Han DO NURSING TREATMENT ORDERAB LES - BLOOD ADMIN POCT Glucose (02/06/2022 7:47 AM EDT) P athologist Signature POC Glucose 149 65 - 199 [facility] mg/dL [facility] Comment: Supplemental ranges: <140 mg/dL before meals <180 mg/dL all other times of the day Specimen Anatomical Collection Method Collection Time Receive d Time (Source) Location / / Volume Laterality Blood 02/06/2022 7:47 AM 2 7:47 EDT AM EDT Dunia Han DO POINT OF CARE TEST ORDERA BLES Performing Organization Address City/State/ZIP Code Phon e Number [address] Prepare RBC (02/06/2022 7:40 AM EDT) P athologist Signature Dispensed? Yes [facility] Specimen Anatomical Collection Method Collection Time Receive d Time (Source) Location / / Volume Laterality Blood 02/06/2022 7:40 AM 2 7:37 EDT AM EDT Dunia Han DO BLOOD BANK ORDERABLES Performing Organization Address City/[facility]/[place] [address] (ABNORMAL) Basic Metabolic Panel (non-fasting) (02/06/2022 7:40 AM EDT) P athologist Signature Glucose Lvl 138 65 - 199 [facility] mg/dL [facility] Comment: Diabetes: >=200 mg/dL plus symp toms BUN 44 (H) 10 - 20 mg/dL [facility] Creatinine 4.52 (H) 0.80 - 1.50 mg/dL [facility] Sodium 123 (L) 135 - 145 mmol/L [facility] Potassium 5.4 (H) 3.5 - 5.0 mmol/L [facility] Comment: Please note: ??Patients with WBC >100,00 0 may have falsely elevated Potassium levels. ??For accurate Potassium quantif ication in these patients send serum separator tube (gold top) for subsequent determinations. ??Contact the Clinical Chemistry Laboratory if there are any qu estions. Chloride 91 (L) 98 - 107 mmol/L [facility] CO2 23 22 - 31 mmol/L [facility] Anion Gap 9 5 - 15 mmol/L [facility] Calcium 6.7 (Critical) 8.5 - 10.5 mg/dL [facility] Comment: Called by: , Read back by: Alden Colindres, Date/Time:02/06/22 09:21. Estimated GFR 17 (L) >=60 mL/min/1.73 m?? [facility] Comment: This patient's estimated [...] Organization Address City/State/ZIP [place] [address] (ABNORMAL) BLOOD GAS 2 VENOUS (02/06/2022 6:19 AM EDT) athologist Signature pH Honorio 7.40 7.32 - [facility] 7.42 [facility] pCO2 Honorio 40 (L) 41 - 51 [facility] LABORATORY pO2 Honorio 31 25 - 40 [facility] LABORATORY HCO3 [place] 24.2 mmol/L [facility] BE Honorio -0.5 mmol/L [facility] Hgb Blood Gas 8.2 (L) 13.7 - [facility] 16.5 g/dL [facility] O2HB Honorio 65.2 % [facility] COHB Honorio 1.0 % [facility] Comment: Nonsmokers: 0.5-1.5% COHB Smokers: Variable, but usually less than 10% Toxic: 20-30% COHB Lethal: Greater than 60% COHB METHB Honorio 0.9 <=1.5 % [facility] Na Whole Blood 117 (Critical) 135 - 145 mmol/L [facility] Comment: Noted by electrical and instrument mechanic. K Whole Blood 5.2 (H) 3.5 - 5.0 mmol/L [facility] Comment: Please note: Patients with WBC >100,000 may have falsely elevated Potassium levels. Contact the Clinical Chemistry L aboratory if there are any questions. ICa Whole Blood 0.96 (L) 1.15 - 1.33 mmol/L [facility] Comment: Note: ??Total bilirubin higher than 20 m g/dL may lead to falsely low ionized calcium. CL Whole Blood 91 (L) 98 - 107 mmol/L [facility] Gluc Whole Bld 113 65 - 199 mg/dL [facility] Comment: Diabetes: >=200 mg/dL plus symp toms Lactate WB 1.3 0.5 - 2.2 mmol/L [facility] BGas Source Venous [facility] Specimen Anatomical Collection Method Collection Time Receive d Time (Source) Location / / Volume Laterality Blood 02/06/2022 6:19 AM 6:19 EDT AM EDT Dunia Han DO CHEMISTRY ORDERABLES Performing Organization Address City/State/ZIP Code Phon e Number [place] [id number] [facility] LABORATORY Drive Fibrinogen (02/06/2022 6:16 AM EDT) athologist Signature Fibrinogen 294 200 - 393 [facility] mg/dL [facility] Comment: A fibrinogen level >100 mg/dL is adequat e for hemostasis in most patients without underlying bleeding disorders. Specimen Anatomical Collection Method Collection Time Receive d Time (Source) Location / / Volume Laterality Blood 02/06/2022 6:16 AM 2 6:20 EDT AM EDT Resulting Agency Comment Spec In Lab Danielle Ramirez MD HEMATOLOGY ORDERABLES Performing Organization Address City/State/ZIP Code Phon e Number [address] Prothrombin Time (02/06/2022 6:16 AM EDT) athologist Signature PT 11.6 9.4 - 12.5 [facility] LABORATORY INR 1.0 [facility] Comment: An INR <2.0 [...] Organization Address City/State/ZIP Code Phon e Number [address] Platelet count (02/06/2022 6:16 AM EDT) athologist Signature Platelets 185 145 - 357 [facility] x10(3)/[facility] LABORATORY Plat Immature 2.7 0.0 - 7.4 [facility] MANDO % % [facility] Comment: Limitation of the Immature Platelet Frac tion (IPF)-May be less reliable when the platelet count is less than 77c304/u L due to statistical imprecision. The IPF [...] in a decreased state of production. References: [employer] The Clinical Value of the Immature Platelet Fraction (IPF) in Cell Recovery Document Number [id number] 12/2010 [employer] The Role of the Imm ature Platelet Fraction (IPF) in the Differential Diagnosis of Thrombocytopen ia, Document MKT-10-1209 V05/07/14 P0514 Specimen Anatomical Collection Method Collection Time Receive d Time (Source) Location / / Volume Laterality Blood 02/06/2022 6:16 AM 2 6:20 EDT AM EDT Resulting Agency Comment Spec In Lab Danielle Ramirez MD HEMATOLOGY ORDERABLES Performing Organization Address City/[facility]/[place] [address] (ABNORMAL) Hematocrit (02/06/2022 6:16 AM EDT) P athologist Signature Hematocrit 20.5 (L) 40.5 - [facility] 48.5 % [facility] Specimen Anatomical Collection Method Collection Time Receive d Time (Source) Location / / Volume Laterality Blood 02/06/2022 6:16 AM 2 6:20 EDT AM EDT Resulting Agency Comment Spec In Lab Danielle Ramirez MD HEMATOLOGY ORDERABLES Performing Organization Address City/[facility]/[place] [address] (ABNORMAL) Hemoglobin (02/06/2022 6:16 AM EDT) P athologist Signature Hemoglobin 7.5 (L) 13.7 - 16.5 [facility] g/dL [facility] Specimen Anatomical Collection Method Collection Time Receive d Time (Source) Location / / Volume Laterality Blood 02/06/2022 6:16 AM 6:20 EDT AM EDT Resulting Agency Comment Spec In Lab Danielle Ramirez MD HEMATOLOGY ORDERABLES Performing Organization Address City/State/ZIP [place] [address] (ABNORMAL) BLOOD GAS 2 ARTERIAL (02/06/2022 6:14 AM EDT) Analysis Performed At Patho logist Time Signature pH Art 7.47 (H) 7.35 - [facility] 7.45 [facility] LABORATORY pCO2 Art 33 (L) 35 - 45 [facility] LABORATORY pO2 Art 83 (L) 85 - 104 [facility] LABORATORY HCO3 Art 23.3 20.0 - [facility] 26.0 [facility] mmol/[facility] LABORATORY BE Art -0.3 -3.0 - 3.0 [facility] mmol/L [facility] LABORATORY Hgb Blood Gas 8.4 (L) 13.7 - [facility] 16.5 g/dL [facility] LABORATORY O2HB Art 94.3 94.0 - [facility] 97.0 % [facility] LABOR[facility]ORY COHB Art 0.3 % [facility] Comment: Nonsmokers: 0.5-1.5% COHB Smokers: Variable, but usually less than 10% Toxic: 20-30% COHB Lethal: Greater than 60% COHB METHB Art 1.0 <=1.5 % [facility] LABORATORY Na Whole Blood 117 (Critical) 135 - 145 mmol/L [facility] Comment: Noted by electrical and instrument mechanic. K Whole Blood 5.3 (H) 3.5 - 5.0 mmol/L [facility] LABORATORY Comment: Please note: Patients with WBC >100,000 may have falsely elevated Potassium levels. Contact the Clinical Chemistry L aboratory if there are any questions. ICa Whole Blood 0.96 (L) 1.15 - 1.33 mmol/L [facility] Comment: Note: ??Total bilirubin higher than 20 m g/dL may lead to falsely low ionized calcium. CL Whole Blood 91 (L) 98 - 107 mmol/L [facility] LABORATORY Gluc Whole Bld 117 65 - 199 mg/dL [facility] LABORATORY Comment: Diabetes: >=200 mg/dL plus symp toms. Lactate WB 1.3 0.5 - 2.2 mmol/L [facility] LABORATORY FIO2 Art 21 % [facility] LABORATORY PF Ratio Art [address] [facility] LABORATORY Specimen Anatomical Collection Method Collection Time Receive d Time (Source) Location / / Volume Laterality Blood 02/06/2022 6:14 AM 2 6:14 EDT AM EDT Dunia Gaines Atchimaeveon DO CHEMISTRY ORDERABLES Performing Organization Address City/[facility]/ZIP Code Phon e Number [address] Transfuse RBC (02/06/2022 6:01 AM EDT) Dunia Pat A Atchinson DO NURSING TREATMENT ORDERAB LES - BLOOD ADMIN Transfuse RBC (02/06/2022 6:01 AM EDT) Dunia Pat A Atchinson DO NURSING TREATMENT ORDERAB LES - BLOOD ADMIN Blood culture (02/06/2022 6:00 AM EDT) [facility] Method Time Signature Blood Culture No growth [facility] MANDO at 5 days. [facility] LABORATORY Specimen Anatomical Collection Method Collection Time Receive d Time (Source) Location / / Volume Laterality Blood 02/06/2022 6:00 AM 2 7:28 EDT AM EDT Resulting Agency Comment Spec In Lab Dunia Pat A Atchinson DO MICROBIOLOGY - BLOOD ORDE RABANNA Performing Organization Address City/[facility]/ZIP Code Phon e Number [address] Insert Arterial Line (02/06/2022 [...] p lanned procedure. ?? Hand Hygiene: The glass inserter did perform h and hygiene prior to [...] 4:20 AM EDT) athologist Signature Dispensed? Yes [facility] LABORATORY Specimen Anatomical Collection Method Collection Time Receive d Time (Source) Location / / Volume Laterality Blood 02/06/2022 4:20 AM 2 4:20 EDT AM EDT Dunia Han DO BLOOD BANK ORDERABLES Performing Organization Address City/State/ZIP [place] [address] Scan, Peripheral Blood (02/06/2022 3:48 AM EDT) [facility] gist Method Time Signature Plat Estimate Normal [facility] RBC Morphology Abnormal [facility] Ovalocytes 1-5 /HPF [facility] Cambria Cells 1-5 /HPF [facility] Specimen Anatomical Collection Method Collection Time Receive d Time (Source) Location / / Volume Laterality Blood 02/06/2022 3:48 AM 3:51 EDT AM EDT Resulting Agency Comment Spec In Lab Danielle Ramirez MD HEMATOLOGY ORDERABLES Performing Organization Address City/State/ZIP [place] [address] (ABNORMAL) Differential, Automated (02/06/2022 3:48 AM EDT) [facility] Method Time Signature Neutrophils % 56.0 % [facility] LABORATORY Neutr Abs (ANC) 10.94 (H) 1.70 - [facility] 6.10 [facility] x10(3)/[facility] LABORATORY Lymphocytes % 11.6 % [facility] LABORATORY Lymphocytes Abs 2.3 0.9 - 3.2 [facility] x10(3)/[facility] LABORATORY Monocytes % 15.0 % [facility] LABORATORY Monocyte Abs 2.9 (H) 0.3 - 0.9 [facility] x10(3)/[facility] LABORATORY Eosinophils % 1.0 % [facility] LABORATORY Eosinophils Abs 0.2 0.0 - 0.4 [facility] x10(3)/[facility] LABORATORY Basophils % 0.6 % [facility] LABORATORY Basophils Abs 0.1 0.0 - 0.1 [facility] x10(3)/[facility] LABORATORY Immature Gran % 15.80 % [facility] LABORATORY Comment: Immature granulocytes(IG's)percentage an d absolute count will include metamyelocytes, myelocytes, and promyelo cytes. Blood smears from CBCs yielding IG's will be scanned manually for concor dance. If this scan disagrees with the automated IG or if promyelocytes are not ed, a manual differential will be performed. Gemini Gran Abs 3.09 (H) 0.00 - 0.04 x10(3)/[facility] LABORATORY Specimen Anatomical Collection Method Collection Time Receive d Time (Source) Location / / Volume Laterality Blood 02/06/2022 3:48 AM 2 3:51 EDT AM EDT Resulting Agency Comment Spec In Lab Danielle Ramirez MD HEMATOLOGY ORDERABLES Performing Organization Address City/State/ZIP [place] [address] (ABNORMAL) Hemogram (02/06/2022 3:48 AM EDT) [facility] gist Method Time Signature WBC 19.5 (H) 4.0 - 9.5 [facility] x10(3)/[facility] LABORATORY RBC 2.27 (L) 4.58 - [facility] 5.54 [facility] x10(6)/[facility] LABORATORY Hemoglobin 6.9 (L) 13.7 - [facility] 16.5 g/dL [facility] LABORATORY Hematocrit 19.2 (L) 40.5 - [facility] 48.5 % [facility] LABORATORY MCV 84.6 82.9 - [facility] 93.1 [facility] LABORATORY MCH 30.4 27.5 - [facility] 32.1 pg [facility] LABORATORY MCHC 35.9 (H) 32.0 - [facility] 35.7 g/dL [facility] LABORATORY Platelets 147 145 - 357 [facility] x10(3)/[facility] LABORATORY RDWSD 45.8 (H) 36.0 - [facility] 45.0 [facility] LABORATORY RDWCV 15.1 (H) 11.4 - [facility] 13.8 % [facility] LABORATORY MPV 9.4 7.6 - 12.9 [facility] LABORATORY nRBC % Auto 0.4 % [facility] LABORATORY nRBC Abs Auto 0.080 (H) 0.000 - [facility] MANDO 0.000 [facility] x10(3)/[facility] LABORATORY Specimen Anatomical Collection Method Collection Time Receive d Time (Source) Location / / Volume Laterality Blood 02/06/2022 3:48 AM 2 3:51 EDT AM EDT Resulting Agency Comment Spec In Lab Danielle Ramirez MD HEMATOLOGY ORDERABLES Performing Organization Address City/State/ZIP [place] [address] (ABNORMAL) BLOOD GAS 2 ARTERIAL (02/06/2022 3:48 AM EDT) P athologist Signature pH Art 7.42 7.35 - [facility] 7.45 [facility] LABORATORY pCO2 Art 40 35 - 45 [facility] mmHg [facility] LABORATORY pO2 Art 36 85 - 104 [facility] (Critical) [facility] LABORATORY Comment: Noted by electrical and instrument mechanic. HCO3 Art 25.7 20.0 - 26.0 mmol/L [facility] LABORATORY BE Art 1.3 -3.0 - 3.0 mmol/L [facility] LABORATORY Hgb Blood Gas 7.9 (L) 13.7 - 16.5 g/dL [facility] LABORATORY O2HB Art 73.5 (L) 94.0 - 97.0 % [facility] LABORATORY COHB Art 0.5 % [facility] LABORATORY Comment: Nonsmokers: 0.5-1.5% COHB Smokers: Variable, but usually less than 10% Toxic: 20-30% COHB Lethal: Greater than 60% COHB METHB Art 1.2 <=1.5 % [facility] LABORATORY Na Whole Blood 118 (Critical) 135 - 145 mmol/L [facility] Comment: Noted by electrical and instrument mechanic. K Whole Blood 5.2 (H) 3.5 - 5.0 mmol/L [facility] LABORATORY Comment: Please note: Patients with WBC >100,000 may have falsely elevated Potassium levels. Contact the Clinical Chemistry L aboratory if there are any questions. ICa Whole Blood 0.93 (L) 1.15 - 1.33 mmol/L [facility]OR[facility] Comment: Note: ??Total bilirubin higher than 20 m g/dL may lead to falsely low ionized calcium. CL Whole Blood 92 (L) 98 - 107 mmol/L [facility] LABORATORY Gluc Whole Bld 122 65 - 199 mg/dL [facility] LABORATORY Comment: Diabetes: >=200 mg/dL plus symp toms. Lactate WB 1.8 0.5 - 2.2 mmol/L [facility] LABORATORY Temp Art 37.0 Celsius [facility] LABORATORY Specimen Anatomical Collection Method Collection Time Receive d Time (Source) Location / / Volume Laterality Blood 02/06/2022 3:48 AM 2 3:48 EDT AM EDT Dunia Han DO CHEMISTRY ORDERABLES Performing Organization Address City/[facility]/[place] [address] Prepare RBC (02/06/2022 1:20 AM EDT) P athologist Signature Dispensed? Yes [facility] LABORATORY Specimen Anatomical Collection Method Collection Time Receive d Time (Source) Location / / Volume Laterality Blood 02/06/2022 1:20 AM 2 1:18 EDT AM EDT Dunia Han DO BLOOD BANK ORDERABLES Performing Organization Address City/[facility]/[place] [address] Fibrinogen (02/06/2022 12:50 AM EDT) P athologist Signature Fibrinogen 298 200 - 393 [facility] mg/dL [facility] LABOR[facility]ORY Comment: A fibrinogen level >100 mg/dL is adequat e for hemostasis in most patients without underlying bleeding disorders. Specimen Anatomical Collection Method Collection Time Receive d Time (Source) Location / / Volume Laterality Blood 02/06/2022 12:50 02/06/2022 1:04 AM EDT AM EDT Resulting Agency Comment Spec In Lab Danielle Ramirez MD HEMATOLOGY ORDERABLES Performing Organization Address City/[facility]/[place] [address] (ABNORMAL) Prothrombin Time (02/06/2022 12:50 AM EDT) P athologist Signature PT 14.6 (H) 9.4 - 12.5 [facility] sec [facility] LABORATORY INR 1.3 [facility] LABORATORY Comment: An INR <2.0 [...] Organization Address City/State/ZIP [place] [address] Platelet count (02/06/2022 12:50 AM EDT) P athologist Signature Platelets 202 145 - 357 [facility] x10(3)/[facility] LABORATORY Plat Immature 3.3 0.0 - 7.4 [facility] % % [facility] LABORATORY Comment: Limitation of the Immature Platelet Frac tion (IPF)-May be less reliable when the platelet count is less than 66t709/u L due to statistical imprecision. The IPF [...] in a decreased state of production. References: [employer] The Clinical Value of the Immature Platelet Fraction (IPF) in Cell Recovery Document Number 10-1143 12/2010 [employer] The Role of the Imm ature [...] Organization Address City/State/ZIP Code Phon e Number [address] (ABNORMAL) Hematocrit (02/06/2022 12:50 AM EDT) athologist Signature Hematocrit 13.3 (L) 40.5 - [facility] 48.5 % [facility] LABORATORY Specimen Anatomical Collection Method Collection Time Receive d Time (Source) Location / / Volume Laterality Blood 02/06/2022 12:50 02/06/2022 1:04 AM EDT AM EDT Resulting Agency Comment Spec In Lab Danielle Ramirez MD HEMATOLOGY ORDERABLES Performing Organization Address City/[facility]/[place] [address] (ABNORMAL) Hemoglobin (02/06/2022 12:50 AM EDT) athologist Signature Hemoglobin 4.8 13.7 - [facility] (Critical) 16.5 g/dL [facility] LABOR[facility]ORY Comment: This result has been [...] Ramirez MD HEMATOLOGY ORDERABLES Performing Organization Address City/[facility]/[place] [address] (ABNORMAL) Basic Metabolic Panel (non-fasting) (02/06/2022 12:50 AM EDT) athologist Signature Glucose Lvl 177 65 - 199 [facility] mg/dL [facility] LABOR[facility]ORY Comment: Diabetes: >=200 mg/dL plus symp toms BUN 42 (H) 10 - 20 mg/dL [facility] LABORATORY Creatinine 4.29 (H) 0.80 - 1.50 mg/dL [facility] LABORATORY Sodium 124 (L) 135 - 145 mmol/L [facility] LABORATORY Potassium 5.3 (H) 3.5 - 5.0 mmol/L [facility] LABORATORY Comment: Please note: ??Patients with WBC >100,00 0 may have falsely elevated Potassium levels. ??For accurate Potassium quantif ication in these patients send serum separator tube (gold top) for subsequent determinations. ??Contact the Clinical Chemistry Laboratory if there are any qu estions. Chloride 89 (L) 98 - 107 mmol/L [facility]ORATORY CO2 24 22 - 31 mmol/L [facility] Anion Gap 11 5 - 15 mmol/L [facility] LABORATORY Calcium 6.5 (Critical) 8.5 - 10.5 mg/dL [facility] LABORATORY Comment: called by bm/read back by bon anton 02/06/22 0147 Estimated GFR 18 (L) >=60 mL/min/1.73 m?? [facility] Comment: This patient's estimated [...] Han DO CHEMISTRY ORDERABLES Performing Organization Address City/[facility]/[place] [address] (ABNORMAL) Phosphorus (02/06/2022 12:50 AM EDT) P athologist Signature Phosphorus 6.5 (H) 2.5 - 4.5 [facility] mg/dL [facility] LABORATORY Specimen Anatomical Collection Method Collection Time Receive d Time (Source) Location / / Volume Laterality Blood 02/06/2022 12:50 02/06/2022 1:04 AM EDT AM EDT Resulting Agency Comment Spec In Lab Gela Novak MD CHEMISTRY ORDERABLES Performing Organization Address City/[facility]/ZIP Code Phon e Number [address] Magnesium (02/06/2022 12:50 AM EDT) P athologist Signature Magnesium 0.88 0.69 - 1.07 [facility] mmol/L [facility] LABORATORY Specimen Anatomical Collection Method Collection Time Receive d Time (Source) Location / / Volume Laterality Blood 02/06/2022 12:50 02/06/2022 1:04 AM EDT AM EDT Resulting Agency Comment Spec In Lab Gela Novak MD CHEMISTRY ORDERABLES Performing Organization Address City/[facility]/[place] [address] Transfuse thawed plasma (02/06/2022 12:30 AM EDT) Dunia Han DO NURSING TREATMENT ORDERAB LES - BLOOD ADMIN SCAN DOC: LAB (02/06/2022 12:00 AM EDT) Narrative 02/06/2022 12:00 AM EDT This result has an attachment that is no t available. Ordered by an unspecified provider. Scanning Provider MEDIA MGR SCAN EXT ORDR/RSLT Transfuse thawed plasma (02/05/2022 11:56 PM EDT) Dunia Han DO NURSING TREATMENT ORDERAB LES - BLOOD ADMIN Transfuse thawed plasma (02/05/2022 11:11 PM EDT) Dunia Pat Liana Han DO NURSING TREATMENT ORDERAB LES - BLOOD ADMIN (ABNORMAL) BLOOD GAS 2 VENOUS (02/05/2022 10:39 PM EDT) athologist Signature pH Honorio 7.40 7.32 - [facility] 7.42 [facility] LABORATORY pCO2 Honorio 34 (L) 41 - 51 [facility] LABORATORY pO2 Honorio 28 25 - 40 [facility] LABORATORY HCO3 Honorio 20.4 mmol/L [facility]OR[facility] BE Honorio -4.5 mmol/L [facility] LABORATORY Hgb Blood Gas 8.7 (L) 13.7 - [facility] 16.5 g/dL [facility] O2HB Honorio 60.3 % [facility]ORATORY COHB Honorio 0.8 % [facility] Comment: Nonsmokers: 0.5-1.5% COHB Smokers: Variable, but usually less than 10% Toxic: 20-30% COHB Lethal: Greater than 60% COHB METHB Honorio 0.3 <=1.5 % [facility] LABORATORY Na Whole Blood 119 (Critical) 135 - 145 mmol/L [facility] LAB[facility] Comment: Noted by electrical and instrument mechanic. K Whole Blood 5.3 (H) 3.5 - 5.0 mmol/L [facility] LABORATORY Comment: Please note: Patients with WBC >100,000 may have falsely elevated Potassium levels. Contact the Clinical Chemistry L aboratory if there are any questions. ICa Whole Blood 0.95 (L) 1.15 - 1.33 mmol/L [facility] LABORATORY Comment: Note: ??Total bilirubin higher than 20 m g/dL may lead to falsely low ionized calcium. CL Whole Blood 93 (L) 98 - 107 mmol/L [facility] LABORATORY Gluc Whole Bld 163 65 - 199 mg/dL [facility] LABORATORY Comment: Diabetes: >=200 mg/dL plus symp toms Lactate WB 1.8 0.5 - 2.2 mmol/L [facility] LABORATORY BGas Source Venous [facility] LABORATORY Specimen Anatomical Collection Method Collection Time Receive d Time (Source) Location / / Volume Laterality Blood 02/05/2022 10:39 02/05/2022 PM EDT 10:39 PM EDT Dunia Han DO CHEMISTRY ORDERABLES Performing Organization Address City/State/[place] [address] Transfuse RBC (02/05/2022 10:34 PM EDT) Dilcia Lopez MD NURSING TREATMENT ORDERABLES - BLOOD ADMIN Transfuse RBC (02/05/2022 10:34 PM EDT) Dilcia Lopez MD NURSING TREATMENT ORDERABLES - BLOOD ADMIN (ABNORMAL) Hepatic Function Panel (02/05/2022 9:54 PM EDT) athologist Signature Total Protein 3.2 (L) 6.1 - 8.0 [facility] g/dL [facility] LABORATORY Albumin 1.4 (L) 3.2 - 5.2 [facility] g/dL [facility] LABORAT[facility] AST 21 0 - 39 [facility] unit/L [facility] ALT <5 0 - 55 [facility] unit/L [facility] LABORATORY Alk Phos 74 40 - 130 [facility] unit/L [facility] LABORATORY Total 0.4 0.2 - 1.3 [facility] Bilirubin mg/dL [facility] LABORATORY Bili, Direct 0.3 0.0 - 0.3 [facility] mg/dL [facility] LABORATORY Specimen Anatomical Collection Method Collection Time Receive d Time (Source) Location / / Volume Laterality Blood 02/05/2022 9:54 PM EDT 10:31 PM EDT Resulting Agency Comment Spec In Lab Dunia Han DO CHEMISTRY ORDERABLES Performing Organization Address City/State/ZIP Code Phon e Number [address] (ABNORMAL) Basic Metabolic Panel (non-fasting) (02/05/2022 9:54 PM EDT) athologist Signature Glucose Lvl 161 65 - 199 [facility] mg/dL [facility] LABORATORY Comment: Diabetes: >=200 mg/dL plus symp toms BUN 41 (H) 10 - 20 mg/dL [facility] LABORATORY Creatinine 4.29 (H) 0.80 - 1.50 mg/dL [facility] LABORATORY Sodium 123 (L) 135 - 145 mmol/L [facility]OR[facility]ORY Potassium 5.7 (H) 3.5 - 5.0 mmol/L [facility] LABORATORY Comment: Please note: ??Patients with WBC >100,00 0 may have falsely elevated Potassium levels. ??For accurate Potassium quantif ication in these patients send serum separator tube (gold top) for subsequent determinations. ??Contact the Clinical Chemistry Laboratory if there are any qu estions. Chloride 92 (L) 98 - 107 mmol/L [facility] CO2 23 22 - 31 mmol/L [facility] Anion Gap 8 5 - 15 mmol/L [facility] LABORATORY Calcium 6.2 (Critical) 8.5 - 10.5 mg/dL [facility] LABORATORY Comment: called by bm/read back by bon anton 02/05/22 0592 Estimated GFR 18 (L) >=60 mL/min/1.73 m?? [facility] Comment: This patient's estimated [...] Organization Address City/State/[place] [address] Transfuse RBC (02/05/2022 9:25 PM EDT) Dilcia Lopez MD NURSING TREATMENT ORDERABLES - BLOOD ADMIN Transfuse RBC (02/05/2022 9:25 PM EDT) Dilcia Lopez MD NURSING TREATMENT ORDERABLES - BLOOD ADMIN Prepare thawed plasma (02/05/2022 9:10 PM EDT) P athologist Signature Dispensed? Yes [facility] Specimen Anatomical Collection Method Collection Time Receive d Time (Source) Location / / Volume Laterality Blood 02/05/2022 9:10 PM 9:08 EDT PM EDT Dilcia Lopez MD BLOOD BANK ORDERABLES Performing Organization Address City/[facility]/[place] [address] Transfuse RBC (02/05/2022 8:58 PM EDT) Dilcia Lopez MD NURSING TREATMENT ORDERABLES - BLOOD ADMIN Transfuse RBC (02/05/2022 8:58 PM EDT) Dilcia Lopez MD NURSING TREATMENT ORDERABLES - BLOOD ADMIN Prepare RBC (02/05/2022 8:50 PM EDT) P athologist Signature Dispensed? Yes [facility] Specimen Anatomical Collection Method Collection Time Receive d Time (Source) Location / / Volume Laterality Blood 02/05/2022 8:50 PM 8:50 EDT PM EDT Dilcia Lopez MD BLOOD BANK ORDERABLES Performing Organization Address City/[facility]/ZIP Code Phon e Number [address] Prepare RBC (02/05/2022 8:40 PM EDT) P athologist Signature Dispensed? Yes [facility] Specimen Anatomical Collection Method Collection Time Receive d Time (Source) Location / / Volume Laterality Blood 02/05/2022 8:40 PM 2 8:38 EDT PM EDT Dilcia Lopez MD BLOOD BANK ORDERABLES Performing Organization Address City/[facility]/[place] [address] (ABNORMAL) Prothrombin Time (02/05/2022 8:35 PM EDT) athologist Signature PT 56.2 (H) 9.4 - 12.5 [facility] LABORATORY INR 4.9 [facility] Comment: An INR <2.0 [...] EDT Resulting Agency Comment Spec In Lab Dilcai Lopez MD HEMATOLOGY ORDERABLES Performing Organization Address City/[facility]/[place] [address] Fibrinogen (02/05/2022 8:35 PM EDT) athologist Signature Fibrinogen 314 200 - 393 [facility] mg/dL [facility] LAB[facility] Comment: A fibrinogen level >100 mg/dL is adequat e for hemostasis in most patients without underlying bleeding disorders. Specimen Anatomical Collection Method Collection Time Receive d Time (Source) Location / / Volume Laterality Blood 02/05/2022 8:35 PM 2 8:45 EDT PM EDT Resulting Agency Comment Spec In Lab Dilcia Lopez MD HEMATOLOGY ORDERABLES Performing Organization Address City/[facility]/[place] [address] Prepare RBC (02/05/2022 7:55 PM EDT) P athologist Signature Dispensed? Yes [facility] Specimen Anatomical Collection Method Collection Time Receive d Time (Source) Location / / Volume Laterality Blood 02/05/2022 7:55 PM 7:53 EDT PM EDT Dilcia Lopez MD BLOOD BANK ORDERABLES Performing Organization Address City/State/ZIP [place] [address] [address] (ABNORMAL) Differential, Automated (02/05/2022 7:50 PM EDT) Patholo gist Method Time Signature Neutrophils % 66.9 % [facility] LABORATORY Neutr Abs (ANC) 15.42 (H) 1.70 - [facility] 6.10 [facility] x10(3)/[facility] LABORATORY Lymphocytes % 9.1 % [facility]OR[facility] Lymphocytes Abs 2.1 0.9 - 3.2 [facility] x10(3)/[facility] LABORATORY Monocytes % 11.5 % [facility] Monocyte Abs 2.7 (H) 0.3 - 0.9 [facility] x10(3)/[facility] LABORATORY Eosinophils % 0.4 % [facility] Eosinophils Abs 0.1 0.0 - 0.4 [facility] x10(3)/[facility] LABORATORY Basophils % 0.3 % [facility] LABOR[facility] Basophils Abs 0.1 0.0 - 0.1 [facility] x10(3)/[facility] LABORATORY Immature Gran % 11.80 % [facility] Comment: Immature granulocytes(IG's)percentage an d absolute count will include metamyelocytes, myelocytes, and promyelo cytes. Blood smears from CBCs yielding IG's will be scanned manually for concor dance. If this scan disagrees with the automated IG or if promyelocytes are not ed, a manual differential will be performed. Gemini Gran Abs 2.73 (H) 0.00 - 0.04 x10(3)/[facility] LABORATORY Specimen Anatomical Collection Method Collection Time Receive d Time (Source) Location / / Volume Laterality Blood 02/05/2022 7:50 PM 8:09 EDT PM EDT Resulting Agency Comment Spec In Lab Dilcia Lopez MD HEMATOLOGY ORDERABLES Performing Organization Address City/State/ZIP [place] [address] (ABNORMAL) Hemogram (02/05/2022 7:50 PM EDT) athologist Signature WBC 23.1 (H) 4.0 - 9.5 [facility] x10(3)/[facility] LABORATORY RBC 1.62 (L) 4.58 - [facility] 5.54 [facility] x10(6)/[facility] LABORATORY Hemoglobin 4.9 13.7 - [facility] (Critical) 16.5 g/dL [facility] LABORATORY Comment: This result has been called to SHAHEEN GARZA by Graciela Shermna on 02 05 2022 at 2034, and has been read back. Hematocrit 13.7 (L) 40.5 - 48.5 % [facility] MCV 84.6 82.9 - 93.1 fL [facility] Comment: This result has been called to SHAHEEN GARZA by Graciela Sherman on 02 05 2022 at 2034, and has been read back. MCH 30.2 27.5 - 32.1 pg [facility] MCHC 35.8 (H) 32.0 - 35.7 g/dL [facility] LABORATORY Platelets 266 145 - 357 x10(3)/[facility] LABORATORY RDWSD 46.3 (H) 36.0 - 45.0 [facility] LABORATORY RDWCV 15.8 (H) 11.4 - 13.8 % [facility] LABORATORY MPV 10.2 7.6 - 12.9 [facility] LABORATORY nRBC % Auto 0.1 % [facility] LABORATORY nRBC Abs Auto 0.030 (H) 0.000 - 0.000 x10(3)/[facility] LABORATORY Specimen Anatomical Collection Method Collection Time Receive d Time (Source) Location / / Volume Laterality Blood 02/05/2022 7:50 PM 2 8:09 EDT PM EDT Resulting Agency Comment Spec In Lab Dilcia Lopez MD HEMATOLOGY ORDERABLES Performing Organization Address City/[facility]/[place] [address] Blood culture (02/05/2022 6:41 PM EDT) [facility] Method Time Signature Blood Culture No growth JOSH GILMORE at 5 days. [facility] LABORATORY Specimen Anatomical Collection Method Collection Time Receive d Time (Source) Location / / Volume Laterality Blood 02/05/2022 6:41 PM 2 8:46 EDT PM EDT Comment: R FA Resulting Agency Comment Spec In Lab Dilcia Lopez MD MICROBIOLOGY - BLOOD ORDERAB LES Performing Organization Address City/[facility]/[place] [address] (ABNORMAL) Hemoglobin (02/05/2022 5:20 PM EDT) P athologist Signature Hemoglobin 7.1 (L) 13.7 - 16.5 [facility] g/dL [facility] LABORATORY Specimen Anatomical Collection Method Collection Time Receive d Time (Source) Location / / Volume Laterality Blood 02/05/2022 5:20 PM 2 5:30 EDT PM EDT Resulting Agency Comment Spec In Lab Dilcia Lopez MD HEMATOLOGY ORDERABLES Performing Organization Address City/[facility]/[place] [address] Prepare RBC (02/05/2022 2:20 PM EDT) P athologist Signature Dispensed? Yes [facility] LABORATORY Specimen Anatomical Collection Method Collection Time Receive d Time (Source) Location / / Volume Laterality Blood 02/05/2022 2:20 PM 2 2:16 EDT PM EDT Tom Valdovinos MD BLOOD BANK ORDERABLES Performing Organization Address City/[facility]/ZIP Code Phon e Number [address] (ABNORMAL) Hemoglobin (02/05/2022 9:30 AM EDT) athologist Signature Hemoglobin 7.0 (L) 13.7 - 16.5 [facility] g/dL [facility] LABORATORY Specimen Anatomical Collection Method Collection Time Receive d Time (Source) Location / / Volume Laterality Blood 02/05/2022 9:30 AM 9:39 EDT AM EDT Resulting Agency Comment Spec In Lab Dilcia Lopez MD HEMATOLOGY ORDERABLES Performing Organization Address City/State/ZIP Code Phon e Number [address] Transfuse RBC (02/05/2022 6:54 AM EDT) Coty Walton MD NURSING TREATMENT ORDERABLES - BLOOD ADMIN Transfuse RBC (02/05/2022 6:54 AM EDT) Coty Walton MD NURSING TREATMENT ORDERABLES - BLOOD ADMIN Transfuse RBC (02/05/2022 5:07 AM EDT) Coty Walton MD NURSING TREATMENT ORDERABLES - BLOOD ADMIN Prepare RBC (02/05/2022 2:35 AM EDT) athologist Signature Dispensed? Yes [facility] LABOR[facility]ORY Specimen Anatomical Collection Method Collection Time Receive d Time (Source) Location / / Volume Laterality Blood 02/05/2022 2:35 AM 2:34 EDT AM EDT Coty Walton MD BLOOD BANK ORDERABLES Performing Organization Address City/State/ZIP Code Phon e Number [address] Type and Screen Validity (02/05/2022 1:50 AM EDT) [facility] Method Time Signature T&S only valid [facility] LABORATORY Comment: This Type and Screen result is only valid at the [facility] Specimen Anatomical Collection Method Collection Time Receive d Time (Source) Location / / Volume Laterality Blood 02/05/2022 1:50 AM 2 2:08 EDT AM EDT Resulting Agency Comment Spec In Lab Coty Walton MD BLOOD BANK ORDERABLES Performing Organization Address City/[facility]/ZIP Code Phon e Number [address] ABORH Recheck Status (02/05/2022 1:50 AM EDT) [facility] Method Time Signature ABORH Type Completed [facility] LABORATORY Specimen Anatomical Collection Method Collection Time Receive d Time (Source) Location / / Volume Laterality Blood 02/05/2022 1:50 AM 2 2:08 EDT AM EDT Resulting Agency Comment Spec In Lab Coty Walton MD BLOOD BANK ORDERABLES Performing Organization Address City/[facility]/[place] [address] Antibody screen (02/05/2022 1:50 AM EDT) [facility] Method Time Signature Ab Screen Negative [facility] LABORATORY Expires at 02/08/2022 [facility] [id number] on: [facility] LABORATORY Specimen Anatomical Collection Method Collection Time Receive d Time (Source) Location / / Volume Laterality Blood 02/05/2022 1:50 AM 2 2:08 EDT AM EDT Resulting Agency Comment Spec In Lab Coty Walton MD BLOOD BANK ORDERABLES Performing Organization Address City/[facility]/[place] [address] ABO/Rh Typing (02/05/2022 1:50 AM EDT) P athologist Signature ABORh Type A Pos [facility] LABORATORY Specimen Anatomical Collection Method Collection Time Receive d Time (Source) Location / / Volume Laterality Blood 02/05/2022 1:50 AM 2 2:08 EDT AM EDT Resulting Agency Comment Spec In Lab Coty Walton MD BLOOD BANK ORDERABLES Performing Organization Address City/State/ZIP Code Phon e Number [place] [id number] (ABNORMAL) Differential, Automated (02/05/2022 12:56 AM EDT) [facility] Method Time Signature Neutrophils % 71.9 % [facility] LABORATORY Neutr Abs (ANC) 21.60 (H) 1.70 - [facility] 6.10 [facility] x10(3)/[facility] LABORATORY Lymphocytes % 8.3 % [facility] LABORATORY Lymphocytes Abs 2.5 0.9 - 3.2 [facility] x10(3)/[facility] LABORATORY Monocytes % 8.8 % [facility] LABORATORY Monocyte Abs 2.6 (H) 0.3 - 0.9 [facility] x10(3)/[facility] LABORATORY Eosinophils % 0.4 % [facility] LABOR[facility]ORY Eosinophils Abs 0.1 0.0 - 0.4 [facility] x10(3)/[facility] LABORATORY Basophils % 0.3 % [facility] LABORATORY Basophils Abs 0.1 0.0 - 0.1 [facility] x10(3)/[facility] LABORATORY Immature Gran % 10.30 % [facility] LABORATORY Comment: Immature granulocytes(IG's)percentage an d absolute count will include metamyelocytes, myelocytes, and promyelo cytes. Blood smears from CBCs yielding IG's will be scanned manually for concor dance. If this scan disagrees with the automated IG or if promyelocytes are not ed, a manual differential will be performed. Gemini Gran Abs 3.11 (H) 0.00 - 0.04 x10(3)/[facility] LABORATORY Specimen Anatomical Collection Method Collection Time Receive d Time (Source) Location / / Volume Laterality Blood 02/05/2022 12:56 02/05/2022 1:20 AM EDT AM EDT Resulting Agency Comment Spec In Lab Dilcia Lopez MD HEMATOLOGY ORDERABLES Performing Organization Address City/State/ZIP [place] [address] (ABNORMAL) Hemogram (02/05/2022 12:56 AM EDT) P athologist Signature WBC 30.1 4.0 - 9.5 [facility] (Critical) x10(3)/[facility] LABORATORY Comment: This result has been called to WILLIE PAYNE by GAMA THOMPSON on 02 05 2022 at 0137, and has been read back. RBC 1.61 (L) 4.58 - 5.54 x10(6)/[facility] LABORATORY Hemoglobin 5.2 (Critical) 13.7 - 16.5 g/dL [facility] LABORATORY Comment: This result has been called to WILLIE PAYNE by GAMA THOMPSON on 02 05 2022 at 0137, and has been read back. Hematocrit 14.8 (L) 40.5 - 48.5 % [facility] LABORATORY MCV 91.9 82.9 - 93.1 [facility] LABORATORY MCH 32.3 (H) 27.5 - 32.1 pg [facility] LABORATORY MCHC 35.1 32.0 - 35.7 g/dL [facility] LABORATORY Platelets 363 (H) 145 - 357 x10(3)/[facility] LABORATORY RDWSD 47.0 (H) 36.0 - 45.0 [facility] LABORATORY RDWCV 14.8 (H) 11.4 - 13.8 % [facility] LABORATORY MPV 10.3 7.6 - 12.9 [facility] LABORATORY nRBC % Auto 0.1 % [facility] LABORATORY nRBC Abs Auto 0.020 (H) 0.000 - 0.000 x10(3)/[facility] LABORATORY Specimen Anatomical Collection Method Collection Time Receive d Time (Source) Location / / Volume Laterality Blood 02/05/2022 12:56 02/05/2022 1:20 AM EDT AM EDT Resulting Agency Comment Spec In Lab Dilcia Lopez MD HEMATOLOGY ORDERABLES Performing Organization Address City/State/ZIP [place] [address] (ABNORMAL) Basic Metabolic Panel (non-fasting) (02/05/2022 12:56 AM EDT) athologist Signature Glucose Lvl 125 65 - 199 [facility] mg/dL [facility] LABORATORY Comment: Diabetes: >=200 mg/dL plus symp toms BUN 49 (H) 10 - 20 mg/dL [facility] LABORATORY Creatinine 4.98 (H) 0.80 - 1.50 mg/dL [facility] LABORATORY Sodium 122 (L) 135 - 145 mmol/L [facility] LABORATORY Potassium 5.9 (H) 3.5 - 5.0 mmol/L [facility] LABORATORY Comment: Please note: ??Patients with WBC >100,00 0 may have falsely elevated Potassium levels. ??For accurate Potassium quantif ication in these patients send serum separator tube (gold top) for subsequent determinations. ??Contact the Clinical Chemistry Laboratory if there are any qu estions. Chloride 90 (L) 98 - 107 mmol/L [facility] LABORATORY CO2 24 22 - 31 mmol/L [facility] LAB[facility] Anion Gap 8 5 - 15 mmol/L [facility] LABORATORY Calcium 6.4 (Critical) 8.5 - 10.5 mg/dL [facility] LABORATORY Comment: Called by: wesley, Read back by: Jesus Whittaker, Date/Time:02/05/22 02:07. Estimated GFR 15 (L) >=60 mL/min/1.73 m?? [facility] LABORATORY Comment: This patient's estimated [...] Han DO CHEMISTRY ORDERABLES Performing Organization Address City/[facility]/ZIP Code Phon e Number [address] (ABNORMAL) Phosphorus (02/05/2022 12:56 AM EDT) P athologist Signature Phosphorus 7.1 (H) 2.5 - 4.5 [facility] mg/dL [facility] LABORATORY Specimen Anatomical Collection Method Collection Time Receive d Time (Source) Location / / Volume Laterality Blood 02/05/2022 12:56 02/05/2022 1:20 AM EDT AM EDT Resulting Agency Comment Spec In Lab Gela Novak MD CHEMISTRY ORDERABLES Performing Organization Address City/[facility]/[place] [address] Magnesium (02/05/2022 12:56 AM EDT) P athologist Signature Magnesium 0.84 0.69 - 1.07 [facility] mmol/L [facility] LABORATORY Specimen Anatomical Collection Method Collection Time Receive d Time (Source) Location / / Volume Laterality Blood 02/05/2022 12:56 02/05/2022 1:20 AM EDT AM EDT Resulting Agency Comment Spec In Lab Gela Novak MD CHEMISTRY ORDERABLES Performing Organization Address City/[facility]/[place] [address] (ABNORMAL) BLOOD GAS 2 VENOUS (02/04/2022 6:43 PM EDT) P athologist Signature pH Honorio 7.34 7.32 - [facility] 7.42 [facility] LABORATORY pCO2 Honorio 43 41 - 51 [facility] mmHg [facility] LABORATORY pO2 Honorio 34 25 - 40 [facility] LABORATORY HCO3 Honorio 22.6 mmol/L [facility] LABORATORY BE Honorio -3.2 mmol/L [facility] LABORATORY Hgb Blood Gas 7.4 (L) 13.7 - [facility] 16.5 g/dL [facility] LABORATORY O2HB Honorio 58.9 % [facility] LABORATORY COHB Honorio 1.8 % [facility] LABORATORY Comment: Nonsmokers: 0.5-1.5% COHB Smokers: Variable, but usually less than 10% Toxic: 20-30% COHB Lethal: Greater than 60% COHB METHB Honorio 0.3 <=1.5 % [facility] LABORATORY Na Whole Blood 118 (Critical) 135 - 145 mmol/L [facility] LABORAT[facility] K Whole Blood 5.2 (H) 3.5 - 5.0 mmol/L [facility] LABORATORY Comment: Please note: Patients with WBC >100,000 may have falsely elevated Potassium levels. Contact the Clinical Chemistry L aboratory if there are any questions. ICa Whole Blood 0.99 (L) 1.15 - 1.33 mmol/L [facility] LABORATORY Comment: Note: ??Total bilirubin higher than 20 m g/dL may lead to falsely low ionized calcium. CL Whole Blood 92 (L) 98 - 107 mmol/L [facility] LABORATORY Gluc Whole Bld 100 65 - 199 mg/dL [facility] LABORATORY Comment: Diabetes: >=200 mg/dL plus symp toms Lactate WB 1.5 0.5 - 2.2 mmol/L [facility] LABORATORY BGas Source Venous [facility] LABORATORY Specimen Anatomical Collection Method Collection Time Receive d Time (Source) Location / / Volume Laterality Blood 02/04/2022 6:43 PM 6:43 EDT PM EDT Dilcia Lopez MD CHEMISTRY ORDERABLES Performing Organization Address City/State/ZIP [place] [address] Trichomonas Gene Amp ([facility]/CGP/APD/NLH) Urine (02/04/2022 4:20 PM EDT) Analysis Performed At [facility] logist Time Signature Trich Gene Amp Negative Negative [facility] LABORATORY Comment: The only FDA [...] - GENERAL ORDER JT Performing Organization Address [facility] Phon e [address] Chlamydia Gene Amp ([facility]/CGP/APD/NLH) Urine (02/04/2022 4:20 PM EDT) Analysis Performed At Patho logist Time Signature Chlamydia Gene Negative Negative [facility] LABORATORY Comment: The only FDA approved specimen types for this assay are cervical, vaginal, urethral and urine. Non-FDA approved myriam rces are eye, throat and rectal and have been internally validated. Chlamydia Source Urine [facility] LABORATORY Specimen Anatomical Collection Method Collection Time Receive d Time (Source) Location / / Volume Laterality Urine 02/04/2022 4:20 PM 2 5:03 EDT PM EDT Resulting Agency Comment Spec In Lab Dilcia Lopez MD MICROBIOLOGY - GENERAL ORDER JT Performing Organization Address City/[facility] Code [address] GC Gene Amp ([facility]/CGP/APD/NLH) Urine (02/04/2022 4:20 PM EDT) P athologist Signature GC Gene Amp Negative Negative [facility] LABORATORY Comment: The only FDA approved specimen types for this assay are cervical, vaginal, urethral and urine. Non-FDA approved myriam rces are eye, throat and rectal and have been internally validated. GC Source Urine [facility] LABORATORY Specimen Anatomical Collection Method Collection Time Receive d Time (Source) Location / / Volume Laterality Urine 02/04/2022 4:20 PM 2 5:03 EDT PM EDT Resulting Agency Comment Spec In Lab Dilcia Lopez MD MICROBIOLOGY - GENERAL ORDER JT Performing Organization Address City/State/ZIP [place] [address] EKG 12 Lead (02/04/2022 6:17 AM EDT) Component Value Ref Range Test Analysis Performed Pathologis t Method Time At Signature Ventricular rate 99 BPM MUSE SYSTEM Atrial Rate 99 BPM MUSE SYSTEM P-R Interval 146 ms MUSE SYSTEM QRS Duration 96 ms MUSE SYSTEM Q-T Interval 336 ms MUSE SYSTEM QTC Calculated 431 ms MUSE SYSTEM (Bezet) Calculated P Echo 37 degrees MUSE SYSTEM Calculated R Echo 16 degrees MUSE SYSTEM Calculated T Echo 14 degrees MUSE SYSTEM INTERPRETATION Normal sinus rhythm MUSE SYSTEM Normal ECG When compared with ECG of 30-JAN-2022 09:18, Nonspecific T wave abnormality, improved in Inferior leads Confirmed by Tucker Beard ([id number]) on 02/04/2022 5:25:0 4 PM Specimen Anatomical Collection Method Collection Time Receive d Time (Source) Location / / Volume Laterality 02/04/2022 6:17 AM 5:25 EDT PM EDT Candida Krishna MD ECG ORDERABLES Performing Organization Address City/[facility]/ZIP Code Phon e Number MUSE SYSTEM (ABNORMAL) Albumin Level (02/04/2022 4:21 AM EDT) P athologist Signature Albumin 1.7 (L) 3.2 - 5.2 [facility] g/dL [facility] LABORATORY Specimen Anatomical Collection Method Collection Time Receive d Time (Source) Location / / Volume Laterality Blood Venous Draw / 02/04/2022 4:21 AM 02/05/20 4:25 Unknown EDT AM EDT Resulting Agency Comment Spec In Lab Candida Krishna MD CHEMISTRY ORDERABLES Performing Organization Address City/[facility]/ZIP [place] [address] (ABNORMAL) Differential, Automated (02/04/2022 4:21 AM EDT) Patholo gist Method Time Signature Neutrophils % 71.7 % [facility] LABORATORY Neutr Abs (ANC) 22.88 (H) 1.70 - [facility] x10(3)/[facility] LABORATORY Lymphocytes % 8.4 % [facility] LABORATORY Lymphocytes Abs 2.7 0.9 - 3.2 [facility] x10(3)/[facility] LABORATORY Monocytes % 8.2 % [facility] LABORATORY Monocyte Abs 2.6 (H) 0.3 - 0.9 [facility] x10(3)/[facility] LABORATORY Eosinophils % 1.4 % [facility] LABORATORY Eosinophils Abs 0.4 0.0 - 0.4 [facility] x10(3)/[facility] LABORATORY Basophils % 0.6 % [facility] LABORATORY Basophils Abs 0.2 (H) 0.0 - 0.1 [facility] x10(3)/[facility] LABORATORY Immature Gran % 9.70 % [facility] LABORATORY Comment: Immature granulocytes(IG's)percentage an d absolute count will include metamyelocytes, myelocytes, and promyelo cytes. Blood smears from CBCs yielding IG's will be scanned manually for concor dance. If this scan disagrees with the automated IG or if promyelocytes are not ed, a manual differential will be performed. Gemini Gran Abs 3.09 (H) 0.00 - 0.04 x10(3)/[facility] LABORATORY Specimen Anatomical Collection Method Collection Time Receive d Time (Source) Location / / Volume Laterality Blood 02/04/2022 4:21 AM 4:24 EDT AM EDT Resulting Agency Comment Spec In Lab Dilcia Lopez MD HEMATOLOGY ORDERABLES Performing Organization Address City/State/ZIP [place] [address] (ABNORMAL) Hemogram (02/04/2022 4:21 AM EDT) P athologist Signature WBC 31.9 4.0 - 9.5 [facility] (Critical) x10(3)/[facility] LABORATORY Comment: This result has been called to NIKKI SANZ by Nicki Bazzi on 02 04 2022 at 0434, and has been read back. RBC 2.40 (L) 4.58 - 5.54 x10(6)/[facility] LABORATORY Hemoglobin 7.7 (L) 13.7 - 16.5 g/dL [facility] LABORATORY Hematocrit 21.4 (L) 40.5 - 48.5 % [facility] LABORATORY MCV 89.2 82.9 - 93.1 fL [facility] LABORATORY MCH 32.1 27.5 - 32.1 pg [facility] LABORATORY MCHC 36.0 (H) 32.0 - 35.7 g/dL [facility] LABORATORY Platelets 303 145 - 357 x10(3)/[facility] LABORATORY RDWSD 46.1 (H) 36.0 - 45.0 [facility] LABORATORY RDWCV 14.6 (H) 11.4 - 13.8 % [facility] LABORATORY MPV 9.8 7.6 - 12.9 [facility] LABORATORY nRBC % Auto 0.0 % [facility] LABORATORY nRBC Abs Auto 0.000 0.000 - 0.000 x10(3)/[facility] LABORATORY Specimen Anatomical Collection Method Collection Time Receive d Time (Source) Location / / Volume Laterality Blood 02/04/2022 4:21 AM 4:24 EDT AM EDT Resulting Agency Comment Spec In Lab Dilcia Lopez MD HEMATOLOGY ORDERABLES Performing Organization Address City/State/ZIP [place] [address] (ABNORMAL) Basic Metabolic Panel (non-fasting) (02/04/2022 4:21 AM EDT) athologist Signature Glucose Lvl 100 65 - 199 [facility] mg/dL [facility] LABORATORY Comment: Diabetes: >=200 mg/dL plus symp toms BUN 64 (H) 10 - 20 mg/dL [facility] LABORATORY Creatinine 5.55 (H) 0.80 - 1.50 mg/dL [facility] LABORATORY Comment: result rechecked-KS Sodium 120 (L) 135 - 145 mmol/L [facility] LABORATORY Potassium 5.7 (H) 3.5 - 5.0 mmol/L [facility] LABORATORY Comment: Please note: ??Patients with WBC >100,00 0 may have falsely elevated Potassium levels. ??For accurate Potassium quantif ication in these patients send serum separator tube (gold top) for subsequent determinations. ??Contact the Clinical Chemistry Laboratory if there are any qu estions. Chloride 91 (L) 98 - 107 mmol/L [facility] LABORATORY CO2 19 (L) 22 - 31 mmol/L [facility] LABORATORY Anion Gap 10 5 - 15 mmol/L [facility] LABORATORY Calcium 6.3 (Critical) 8.5 - 10.5 mg/dL [facility] LABORATORY Comment: called by KS/read back by Yessi Esteves / 02/04/22 0513 Estimated GFR 13 (L) >=60 mL/min/1.73 m?? [facility] LABORATORY Comment: This patient's estimated [...] Organization Address City/State/ZIP [place] [address] (ABNORMAL) Phosphorus (02/04/2022 4:21 AM EDT) P athologist Signature Phosphorus 7.5 (H) 2.5 - 4.5 JOSH MANDO mg/dL [facility] LABORATORY Specimen Anatomical Collection Method Collection Time Receive d Time (Source) Location / / Volume Laterality Blood 02/04/2022 4:21 AM 2 4:24 EDT AM EDT Resulting Agency Comment Spec In Lab Gela Novak MD CHEMISTRY ORDERABLES Performing Organization Address City/[facility] Phon e Number [address] Magnesium (02/04/2022 4:21 AM EDT) athologist Signature Magnesium 0.88 0.69 - 1.07 [facility] MANDO mmol/L [facility] LABORATORY Specimen Anatomical Collection Method Collection Time Receive d Time (Source) Location / / Volume Laterality Blood 02/04/2022 4:21 AM 2 4:24 EDT AM EDT Resulting Agency Comment Spec In Lab Gela Novak MD CHEMISTRY ORDERABLES Performing Organization Address City/[facility]/ZIP [facility] [place] [address] Transfuse RBC (02/03/2022 6:36 PM EDT) Dilcia Lopez MD NURSING TREATMENT ORDERABLES - BLOOD ADMIN Transfuse RBC (02/03/2022 6:36 PM EDT) Dilcia Lopez MD NURSING TREATMENT ORDERABLES - BLOOD ADMIN POCT Glucose (02/03/2022 3:40 PM EDT) athologist Signature POC Glucose 127 65 - 199 JOSH VELASQUEZMANDO mg/dL [facility] LABORATORY Comment: Supplemental ranges: <140 mg/dL before meals <180 mg/dL all other times of the day Specimen Anatomical Collection Method Collection Time Receive d Time (Source) Location / / Volume Laterality Blood 02/03/2022 3:40 PM 2 3:40 EDT PM EDT Dilcia Lopez MD POINT OF CARE TEST ORDERABLE S Performing Organization Address City/[facility]/ZIP [place] [address] Prepare RBC (02/03/2022 3:20 PM EDT) athologist Signature Dispensed? No [facility] LABORATORY Specimen Anatomical Collection Method Collection Time Receive d Time (Source) Location / / Volume Laterality Blood 02/03/2022 3:20 PM 2 3:19 EDT PM EDT Dilcia Lopez MD BLOOD BANK ORDERABLES Performing Organization Address City/State/ZIP [place] [address] (ABNORMAL) Hemogram (02/03/2022 2:15 PM EDT) athologist Signature WBC 30.1 4.0 - 9.5 [facility] (Critical) x10(3)/[facility] LABORATORY Comment: This result has been called to VINOD WILCOX by Sarah Robison on 02 03 2022 at 1432, and has been read ba ck. RBC 2.14 (L) 4.58 - 5.54 x10(6)/[facility] LABORATORY Hemoglobin 6.8 (L) 13.7 - 16.5 g/dL [facility] LABORATORY Hematocrit 19.4 (L) 40.5 - 48.5 % [facility] LABORATORY MCV 90.7 82.9 - 93.1 fL [facility] LABORATORY MCH 31.8 27.5 - 32.1 pg [facility] LABORATORY MCHC 35.1 32.0 - 35.7 g/dL [facility] LABORATORY Platelets 333 145 - 357 x10(3)/[facility] LABORATORY RDWSD 45.9 (H) 36.0 - 45.0 fL [facility] LABORATORY RDWCV 14.2 (H) 11.4 - 13.8 % [facility] LABORATORY MPV 10.0 7.6 - 12.9 fL [facility] LABORATORY nRBC % Auto 0.0 % [facility] LABORATORY nRBC Abs Auto 0.000 0.000 - 0.000 x10(3)/mcL M [facility] LABORATORY Specimen Anatomical Collection Method Collection Time Receive d Time (Source) Location / / Volume Laterality Blood 02/03/2022 2:15 PM 2:21 EDT PM EDT Resulting Agency Comment Spec In Lab Dilcia Lopez MD HEMATOLOGY ORDERABLES Performing Organization Address City/State/[place] [address] Transfuse RBC (02/03/2022 11:43 AM EDT) Raimundo Lara MD NURSING TREATMENT ORDER JT - BLOOD ADMIN Transfuse RBC (02/03/2022 11:43 AM EDT) Raimundo Lara MD NURSING TREATMENT ORDER JT - BLOOD ADMIN POCT Glucose (02/03/2022 11:42 AM EDT) P athologist Signature POC Glucose 129 65 - 199 [facility] mg/dL [facility] LABORATORY Comment: Supplemental ranges: <140 mg/dL before meals <180 mg/dL all other times of the day Specimen Anatomical Collection Method Collection Time Receive d Time (Source) Location / / Volume Laterality Blood 02/03/2022 11:42 02/03/2022 AM EDT 11:42 AM EDT Erika Retana MD POINT OF CARE TEST ORDERABLE S Performing Organization Address City/[facility]/[place] [address] Duplex for DVT, Arm, Unilat (02/03/2022 9:07 AM EDT) Component Value Ref Test Analysis Performed At Patholo gist Range Method Time Signature VB Text Department: Vascular Surgery Lab VASCUBASE Report Patient: [id number] (ALIX HOLLAND) CPT: 24572 Referring Physician: AGNIESZKA LÓPEZ ?? Phone: Indications: [...] Component Value Ref Test Analysis Performed At [facility] [employer] Range Method Time Signature VB Text Department: Vascular Surgery Lab VASCUBASE Report Patient: [id number] (ALIX HOLLAND) CPT: 65391 Referring Physician: AGNIESZKA LÓPEZ ?? Phone: Indications: [...] Signature POC Glucose 128 65 - 199 [facility] mg/dL [facility] LABORATORY Comment: Supplemental ranges: <140 mg/dL before meals <180 mg/dL all other times of the day Specimen Anatomical Collection Method Collection Time Receive d Time (Source) Location / / Volume Laterality Blood 02/03/2022 8:17 AM 8:17 EDT AM EDT Erika Retana MD POINT OF CARE TEST ORDERABLE S Performing Organization Address City/State/ZIP [place] [address] Prepare RBC (02/03/2022 7:51 AM EDT) athologist Signature Dispensed? Yes [facility] LABORATORY Specimen Anatomical Collection Method Collection Time Receive d Time (Source) Location / / Volume Laterality Blood No Charge / 02/03/2022 7:51 AM 2 7:51 Unknown EDT AM EDT Resulting Agency Comment Spec In Lab Raimundo Lara MD BLOOD BANK ORDERABLES Performing Organization Address City/[facility]/ZIP Code Phon e Number [address] Prepare RBC (02/03/2022 7:45 AM EDT) P athologist Signature Dispensed? Yes [facility] LABORATORY Specimen Anatomical Collection Method Collection Time Receive d Time (Source) Location / / Volume Laterality Blood 02/03/2022 7:45 AM 2 7:42 EDT AM EDT Raimundo Lara MD BLOOD BANK ORDERABLES Performing Organization Address City/[facility]/[place] [address] (ABNORMAL) Hemoglobin and Hematocrit, blood (02/03/2022 6:47 AM EDT) P athologist Signature Hemoglobin 5.6 13.7 - [facility] (Critical) 16.5 g/dL [facility] LABORATORY Comment: This result has been called to EMANI HESS by Sarah Robison on 02 03 2022 at 0738, and has been read back. Hematocrit 16.0 (L) 40.5 - 48.5 % [facility] LABORATORY Specimen Anatomical Collection Method Collection Time Receive d Time (Source) Location / / Volume Laterality Blood 02/03/2022 6:47 AM 2 7:05 EDT AM EDT Resulting Agency Comment Spec In Lab Raimundo Lara MD HEMATOLOGY ORDERABLES Performing Organization Address City/[facility]/ZIP Code Phon e Number [address] Scan, Peripheral Blood (02/03/2022 4:55 AM EDT) Patholo gist Method Time Signature Plat Estimate Normal [facility] LABORATORY RBC Morphology Abnormal [facility] Macrocytes 1-5 /HPF [facility]OR[facility]ORY Microcytes 1-5 /HPF [facility] LABORATORY Stippled RBCs Present >1/HPF [facility] LABORATORY Specimen Anatomical Collection Method Collection Time Receive d Time (Source) Location / / Volume Laterality Blood 02/03/2022 4:55 AM 5:09 EDT AM EDT Resulting Agency Comment Spec In Lab Dimas Hernandez MD HEMATOLOGY ORDERABLES Performing Organization Address City/State/ZIP Code Phon e Number [place] [id number]OS[address] LAB[address]ORY Drive (ABNORMAL) Differential, Automated (02/03/2022 4:55 AM EDT) [facility] Method Time Signature Neutrophils % 68.7 % [facility] LABORATORY Neutr Abs (ANC) 21.19 (H) 1.70 - [facility] 6.10 [facility] x10(3)/[facility] LABORATORY Lymphocytes % 10.5 % [facility] LABORATORY Lymphocytes Abs 3.2 0.9 - 3.2 [facility] x10(3)/[facility] LABORATORY Monocytes % 8.7 % [facility] LABORATORY Monocyte Abs 2.7 (H) 0.3 - 0.9 [facility] x10(3)/[facility] LABORATORY Eosinophils % 1.6 % [facility] LABORATORY Eosinophils Abs 0.5 (H) 0.0 - 0.4 [facility] x10(3)/[facility] LABORATORY Basophils % 0.3 % [facility] LABORATORY Basophils Abs 0.1 0.0 - 0.1 [facility] x10(3)/[facility] LABORATORY Immature Gran % 10.20 % [facility] LABORATORY Comment: Immature granulocytes(IG's)percentage an d absolute count will include metamyelocytes, myelocytes, and promyelo cytes. Blood smears from CBCs yielding IG's will be scanned manually for concor dance. If this scan disagrees with the automated IG or if promyelocytes are not ed, a manual differential will be performed. Gemini Gran Abs 3.13 (H) 0.00 - 0.04 x10(3)/[facility] LABORATORY Specimen Anatomical Collection Method Collection Time Receive d Time (Source) Location / / Volume Laterality Blood 02/03/2022 4:55 AM 5:09 EDT AM EDT Resulting Agency Comment Spec In Lab Dimas Hernandez MD HEMATOLOGY ORDERABLES Performing Organization Address City/State/ZIP [place] [address] (ABNORMAL) Hemogram (02/03/2022 4:55 AM EDT) athologist Signature WBC 30.8 4.0 - 9.5 [facility] (Critical) x10(3)/[facility] LABORATORY Comment: This result has been called to HALLEY HO by Maureen Dixon on 02 03 2022 at 0555, and has been read back. RBC 1.72 (L) 4.58 - 5.54 x10(6)/[facility] LABORATORY Hemoglobin 5.6 (Critical) 13.7 - 16.5 g/dL [facility] LABORATORY Comment: This result has been called to HALLEY HO by Maureen Dixon on 02 03 2022 at 0555, and has been read back. Hematocrit 15.9 (L) 40.5 - 48.5 % [facility] LABORATORY MCV 92.4 82.9 - 93.1 [facility] LABORATORY MCH 32.6 (H) 27.5 - 32.1 pg [facility] LABORATORY MCHC 35.2 32.0 - 35.7 g/dL [facility] LABORATORY Platelets 310 145 - 357 x10(3)/[facility] LABORATORY RDWSD 45.4 (H) 36.0 - 45.0 [facility] LABORATORY RDWCV 14.2 (H) 11.4 - 13.8 % [facility] LABORATORY MPV 10.2 7.6 - 12.9 [facility] LABORATORY nRBC % Auto 0.0 % [facility] LABORATORY nRBC Abs Auto 0.000 0.000 - 0.000 x10(3)/mcL M [facility] LABORATORY Specimen Anatomical Collection Method Collection Time Receive d Time (Source) Location / / Volume Laterality Blood 02/03/2022 4:55 AM 5:09 EDT AM EDT Resulting Agency Comment Spec In Lab Dimas Hernandez MD HEMATOLOGY ORDERABLES Performing Organization Address City/State/ZIP [place] [address] (ABNORMAL) Basic Metabolic Panel (non-fasting) (02/03/2022 4:55 AM EDT) athologist Signature Glucose Lvl 117 65 - 199 [facility] mg/dL [facility] LABORATORY Comment: Diabetes: >=200 mg/dL plus symp toms BUN 53 (H) 10 - 20 mg/dL [facility] LABORATORY Creatinine 4.40 (H) 0.80 - 1.50 mg/dL [facility] LABORATORY Sodium 123 (L) 135 - 145 mmol/L [facility] LABORATORY Potassium 5.2 (H) 3.5 - 5.0 mmol/L [facility] LABORATORY Comment: Please note: ??Patients with WBC >100,00 0 may have falsely elevated Potassium levels. ??For accurate Potassium quantif ication in these patients send serum separator tube (gold top) for subsequent determinations. ??Contact the Clinical Chemistry Laboratory if there are any qu estions. Chloride 93 (L) 98 - 107 mmol/L [facility] LABORATORY CO2 22 22 - 31 mmol/L [facility] LABORATORY Anion Gap 8 5 - 15 mmol/L [facility] LABORATORY Calcium 6.3 (Critical) 8.5 - 10.5 mg/dL [facility] LABORATORY Comment: Called by: , Read back by: Kerwin George, Date/Time:02/03/22 05:46. Estimated GFR 18 (L) >=60 mL/min/1.73 m?? [facility] LABORATORY Comment: This patient's estimated [...] Organization Address City/State/ZIP Code Phon e Number [address] (ABNORMAL) Phosphorus (02/03/2022 4:55 AM EDT) P athologist Signature Phosphorus 6.4 (H) 2.5 - 4.5 [facility] LABORATORY Specimen Anatomical Collection Method Collection Time Receive d Time (Source) Location / / Volume Laterality Blood 02/03/2022 4:55 AM 2 5:09 EDT AM EDT Resulting Agency Comment Spec In Lab Gela Novak MD CHEMISTRY ORDERABLES Performing Organization Address City/State/ZIP Code Phon e Number [address] Magnesium (02/03/2022 4:55 AM EDT) P athologist Signature Magnesium 0.84 0.69 - 1.07 [facility]/L [facility] LABORATORY Specimen Anatomical Collection Method Collection Time Receive d Time (Source) Location / / Volume Laterality Blood 02/03/2022 4:55 AM 2 5:09 EDT AM EDT Resulting Agency Comment Spec In Lab Gela Novak MD CHEMISTRY ORDERABLES Performing Organization Address City/State/[place] [address] Vitamin B12 (02/03/2022 4:55 AM EDT) athologist Signature Vitamin B-12 535 232 - 1,245 [facility] MANDO pg/mL [facility] LABORATORY Specimen Anatomical Collection Method Collection Time Receive d Time (Source) Location / / Volume Laterality Blood 02/03/2022 4:55 AM 2 5:09 EDT AM EDT Resulting Agency Comment Spec In Lab Erika Retana MD CHEMISTRY ORDERABLES Performing Organization Address City/State/[place] [address] (ABNORMAL) Folate, serum (02/03/2022 4:55 AM EDT) athologist [facility] Folate Lvl 3.9 (L) 4.8 - 24.2 [facility] MANDO ng/mL [facility] LABORATORY Specimen Anatomical Collection Method Collection Time Receive d Time (Source) Location / / Volume Laterality Blood 02/03/2022 4:55 AM 2 5:09 EDT AM EDT Resulting Agency Comment Spec In Lab Erika Retana MD CHEMISTRY ORDERABLES Performing Organization Address City/[facility]/[place] [address] POCT Glucose (02/02/2022 4:08 PM EDT) athologist Signature POC Glucose 135 65 - 199 [facility] MANDO mg/dL [facility] LABORATORY Comment: Supplemental ranges: <140 mg/dL before meals <180 mg/dL all other times of the day Specimen Anatomical Collection Method Collection Time Receive d Time (Source) Location / / Volume Laterality Blood 02/02/2022 4:08 PM 2 4:08 EDT PM EDT Evangelina Flynn MD POINT OF CARE TEST ORDERABLE S Performing Organization Address City/State/[place] [address] (ABNORMAL) Hemogram (02/02/2022 12:40 PM EDT) athologist Signature WBC 33.6 4.0 - 9.5 [facility] ([facility]) x10(3)/[facility] LABORATORY Comment: This result has been called to [facility] by Galdino Bynum on 02 02 2022 at 1255, and has been read back. RBC 2.29 (L) 4.58 - 5.54 x10(6)/[facility] LABORATORY Hemoglobin 7.4 (L) 13.7 - 16.5 g/dL [facility] LABORATORY Hematocrit 20.9 (L) 40.5 - 48.5 % [facility] LABORATORY MCV 91.3 82.9 - 93.1 [facility] LABORATORY MCH 32.3 (H) 27.5 - 32.1 pg [facility] LABORATORY MCHC 35.4 32.0 - 35.7 g/dL [facility] LABORATORY Platelets 278 145 - 357 x10(3)/[facility] LABORATORY RDWSD 44.7 36.0 - 45.0 [facility] LABORATORY RDWCV 13.9 (H) 11.4 - 13.8 % [facility] LABORATORY MPV 10.2 7.6 - 12.9 [facility] LABORATORY nRBC % Auto 0.0 % [facility] LABORATORY nRBC Abs Auto 0.000 0.000 - 0.000 x10(3)/[facility] LABORATORY Specimen Anatomical Collection Method Collection Time Receive d Time (Source) Location / / Volume Laterality Blood 02/02/2022 12:40 02/02/2022 PM EDT 12:47 PM EDT Resulting Agency Comment Spec In Lab Beck Sanz MD HEMATOLOGY ORDERABLES Performing Organization Address City/State/ZIP [place] [address] POCT Glucose (02/02/2022 7:57 AM EDT) P athologist Signature POC Glucose 113 65 - 199 [facility] mg/dL [facility] LABORATORY Comment: Supplemental ranges: <140 mg/dL before meals <180 mg/dL all other times of the day Specimen Anatomical Collection Method Collection Time Receive d Time (Source) Location / / Volume Laterality Blood 02/02/2022 7:57 AM 7:57 EDT AM EDT Evangelina Flynn MD POINT OF CARE TEST ORDERABLE S Performing Organization Address City/State/ZIP Code Phon e Number [address] (ABNORMAL) Iron and TIBC (02/02/2022 2:29 AM EDT) Analysis Performed At Patho logist Time Signature Iron 41 (L) 45 - 160 [facility] mcg/dL [facility] LABORATORY TIBC 149 (L) 250 - 450 [facility] mcg/dL [facility] LABORATORY Iron Saturation 28 20 - 50 % [facility] LABORATORY Specimen Anatomical Collection Method Collection Time Receive d Time (Source) Location / / Volume Laterality Blood Venous Draw / 02/02/2022 2:29 AM 02/03/20 22 2:34 Unknown EDT AM EDT Resulting Agency Comment Spec In Lab Vidhya Peñaloza MD CHEMISTRY ORDERABLES Performing Organization Address City/[facility]/ZIP Code Phon e Number [address] (ABNORMAL) Differential, Automated (02/02/2022 2:29 AM EDT) [facility] Time Signature Neutrophils % 69.5 % [facility] LABORATORY Neutr Abs (ANC) 21.20 (H) 1.70 - [facility] 6.10 [facility] x10(3)/[facility] LABORATORY Lymphocytes % 11.0 % [facility] LABORATORY Lymphocytes Abs 3.3 (H) 0.9 - 3.2 [facility] x10(3)/[facility] LABORATORY Monocytes % 8.4 % [facility] LABORATORY Monocyte Abs 2.6 (H) 0.3 - 0.9 [facility] x10(3)/[facility] LABORATORY Eosinophils % 1.6 % [facility] LABORATORY Eosinophils Abs 0.5 (H) 0.0 - 0.4 [facility] x10(3)/[facility] LABORATORY Basophils % 0.5 % [facility] LABORATORY Basophils Abs 0.1 0.0 - 0.1 [facility] x10(3)/[facility] LABORATORY Immature Gran % 9.00 % [facility] LABORATORY Comment: Immature granulocytes(IG's)percentage an d absolute count will include metamyelocytes, myelocytes, and promyelo cytes. Blood smears from CBCs yielding IG's will be scanned manually for concor dance. If this scan disagrees with the automated IG or if promyelocytes are not ed, a manual differential will be performed. Gemini Gran Abs 2.75 (H) 0.00 - 0.04 x10(3)/[facility] LABORATORY Specimen Anatomical Collection Method Collection Time Receive d Time (Source) Location / / Volume Laterality Blood 02/02/2022 2:29 AM 2 2:33 EDT AM EDT Resulting Agency Comment Spec In Lab Dimas Hernandez MD HEMATOLOGY ORDERABLES Performing Organization Address City/State/ZIP [place] [address] (ABNORMAL) Hemogram (02/02/2022 2:29 AM EDT) P athologist Signature WBC 30.5 4.0 - 9.5 [facility] (Critical) x10(3)/[facility] LABORATORY Comment: This result has been called to CARLOS TUBBS by GAMA THOMPSON on 02 02 2022 at 0245, and has been read back. RBC 2.18 (L) 4.58 - 5.54 x10(6)/[facility] LABORATORY Hemoglobin 7.0 (L) 13.7 - 16.5 g/dL [facility] LABORATORY Hematocrit 20.6 (L) 40.5 - 48.5 % [facility] LABORATORY MCV 94.5 (H) 82.9 - 93.1 fL [facility] LABORATORY MCH 32.1 27.5 - 32.1 pg [facility] LABORATORY MCHC 34.0 32.0 - 35.7 g/dL [facility] LABORATORY Platelets 245 145 - 357 x10(3)/[facility] LABORATORY RDWSD 46.5 (H) 36.0 - 45.0 fL [facility] LABORATORY RDWCV 13.7 11.4 - 13.8 % [facility] LABORATORY MPV 10.3 7.6 - 12.9 fL [facility] LABORATORY nRBC % Auto 0.0 % [facility] LABORATORY nRBC Abs Auto 0.000 0.000 - 0.000 x10(3)/[facility] LABORATORY Specimen Anatomical Collection Method Collection Time Receive d Time (Source) Location / / Volume Laterality Blood 02/02/2022 2:29 AM 2 2:33 EDT AM EDT Resulting Agency Comment Spec In Lab Dimas Hernandez MD HEMATOLOGY ORDERABLES Performing Organization Address City/State/ZIP [place] [address] (ABNORMAL) Basic Metabolic Panel (non-fasting) (02/02/2022 2:29 AM EDT) P athologist Signature Glucose Lvl 107 65 - 199 [facility] mg/dL [facility] LABORATORY Comment: Diabetes: >=200 mg/dL plus symp toms BUN 63 (H) 10 - 20 mg/dL [facility] LABORATORY Creatinine 4.78 (H) 0.80 - 1.50 mg/dL [facility] LABORATORY Sodium 127 (L) 135 - 145 mmol/L [facility] LABORATORY Potassium 5.2 (H) 3.5 - 5.0 mmol/L [facility] LABORATORY Comment: Please note: ??Patients with WBC >100,00 0 may have falsely elevated Potassium levels. ??For accurate Potassium quantif ication in these patients send serum separator tube (gold top) for subsequent determinations. ??Contact the Clinical Chemistry Laboratory if there are any qu estions. Chloride 97 (L) 98 - 107 mmol/L [facility] LABORATORY CO2 20 (L) 22 - 31 mmol/L [facility] LABORATORY Anion Gap 10 5 - 15 mmol/L [facility] LABORATORY Calcium 6.8 (Critical) 8.5 - 10.5 mg/dL [facility] LABORATORY Comment: Called by: kvng, Read back by: ashley george, Date/Time:02/02/22 03:11. Estimated GFR 16 (L) >=60 mL/min/1.73 m?? [facility] LABORATORY Comment: This patient's estimated [...] Resulting Agency Comment Spec In Lab Dunia aHn DO CHEMISTRY ORDERABLES Performing Organization Address City/State/ZIP [place] [address] (ABNORMAL) Phosphorus (02/02/2022 2:29 AM EDT) P athologist Signature Phosphorus 5.7 (H) 2.5 - 4.5 [facility] mg/dL [facility] LABORATORY Specimen Anatomical Collection Method Collection Time Receive d Time (Source) Location / / Volume Laterality Blood 02/02/2022 2:29 AM 2 2:33 EDT AM EDT Resulting Agency Comment Spec In Lab Gela Novak MD CHEMISTRY ORDERABLES Performing Organization Address City/State/ZIP Code Phon e Number [facility]OS[facility] [address] Magnesium (02/02/2022 2:29 AM EDT) athologist Signature Magnesium 0.95 0.69 - 1.07 [facility] mmol/L [facility] LABORATORY Specimen Anatomical Collection Method Collection Time Receive d Time (Source) Location / / Volume Laterality Blood 02/02/2022 2:29 AM 2 2:33 EDT AM EDT Resulting Agency Comment Spec In Lab Gela Novak MD CHEMISTRY ORDERABLES Performing Organization Address City/State/ZIP Code Phon e Number [address] (ABNORMAL) Hemogram (02/01/2022 6:15 PM EDT) athologist Signature WBC 30.4 4.0 - 9.5 [facility] (Critical) x10(3)/[facility] LABORATORY Comment: This result has been called to FOREST HUFFMAN by Pretty Luna on 02 01 2022 at 1911, and has been read back. RBC 2.33 (L) 4.58 - 5.54 x10(6)/[facility] LABORATORY Hemoglobin 7.7 (L) 13.7 - 16.5 g/dL [facility] Hematocrit 21.9 (L) 40.5 - 48.5 % [facility] MCV 94.0 (H) 82.9 - 93.1 fL [facility] MCH 33.0 (H) 27.5 - 32.1 pg [facility] MCHC 35.2 32.0 - 35.7 g/dL [facility] Platelets 220 145 - 357 x10(3)/[facility] LABORATORY RDWSD 44.9 36.0 - 45.0 [facility] LABORATORY RDWCV 13.3 11.4 - 13.8 % [facility] MPV 10.8 7.6 - 12.9 [facility] LABORATORY nRBC % Auto 0.0 % [facility] nRBC Abs Auto 0.000 0.000 - 0.000 x10(3)/mcL M [facility] Specimen Anatomical Collection Method Collection Time Receive d Time (Source) Location / / Volume Laterality Blood 02/01/2022 6:15 PM 2 6:29 EDT PM EDT Resulting Agency Comment Spec In Lab Jorge L Ernst INSULATION WORKER HEMATOLOGY ORDERABLES Performing Organization Address City/State/ZIP [place] [address] (ABNORMAL) Basic Metabolic Panel (non-fasting) (02/01/2022 6:15 PM EDT) athologist Signature Glucose Lvl 121 65 - 199 [facility] mg/dL [facility] Comment: Diabetes: >=200 mg/dL plus symp toms BUN 56 (H) 10 - 20 mg/dL [facility] Creatinine 4.21 (H) 0.80 - 1.50 mg/dL [facility] Sodium 127 (L) 135 - 145 mmol/L [facility] Potassium 5.1 (H) 3.5 - 5.0 mmol/L [facility] Comment: Please note: ??Patients with WBC >100,00 0 may have falsely elevated Potassium levels. ??For accurate Potassium quantif ication in these patients send serum separator tube (gold top) for subsequent determinations. ??Contact the Clinical Chemistry Laboratory if there are any qu estions. Chloride 96 (L) 98 - 107 mmol/L [facility] CO2 21 (L) 22 - 31 mmol/L [facility] Anion Gap 10 5 - 15 mmol/L [facility] Calcium 7.2 (L) 8.5 - 10.5 mg/dL [facility] Estimated GFR 19 (L) >=60 mL/min/1.73 m?? [facility] Comment: This patient's estimated [...] Ernst APRN CHEMISTRY ORDERABLES Performing Organization Address City/[facility]/[place] [address] Transfuse RBC (02/01/2022 5:16 PM EDT) Jorge L Ernst APRN NURSING TREATMENT ORDERABLES - BLOOD ADMIN Transfuse RBC (02/01/2022 5:16 PM EDT) Jorge L Ernst APRN NURSING TREATMENT ORDERABLES - BLOOD ADMIN (ABNORMAL) C. Difficile Screen (02/01/2022 1:55 PM EDT) [facility] Method Time Signature C Diff Screen Positive (A) Negative [facility] Comment: PCR Pos C. diff?? [...] Organization Address City/State/[place] [address] Type and Screen Validity (02/01/2022 12:45 PM EDT) [facility] Method Time Signature T&S only valid [facility] JOSH GILMORE at [facility] Comment: This Type and Screen result is only valid at the [facility] Specimen Anatomical Collection Method Collection Time Receive d Time (Source) Location / / Volume Laterality Blood 02/01/2022 12:45 02/01/2022 PM EDT 12:46 PM EDT Resulting Agency Comment Spec In Lab Jorge L Ernst APRN BLOOD BANK ORDERABLES Performing Organization Address City/[facility]/ZIP Code Phon e Number [address] ABORH Recheck Status (02/01/2022 12:45 PM EDT) [facility] Method Time Signature ABORH Type Completed [facility] LABORATORY Specimen Anatomical Collection Method Collection Time Receive d Time (Source) Location / / Volume Laterality Blood 02/01/2022 12:45 02/01/2022 PM EDT 12:46 PM EDT Resulting Agency Comment Spec In Lab Jorge L Ernst APRN BLOOD BANK ORDERABLES Performing Organization Address City/[facility]/[place] [address] Antibody screen (02/01/2022 12:45 PM EDT) [facility] Method [place] Signature Ab Screen Negative [facility] LABORATORY Expires at 02/04/2022 JOSH GILMORE [id number] on: [facility] Specimen Anatomical Collection Method Collection Time Receive d Time (Source) Location / / Volume Laterality Blood 02/01/2022 12:45 02/01/2022 PM EDT 12:46 PM EDT Resulting Agency Comment Spec In Lab Jorge L Ernst APRN BLOOD BANK ORDERABLES Performing Organization Address City/[facility]/[place] [address] ABO/Rh Typing (02/01/2022 12:45 PM EDT) athologist Signature ABORh Type A Pos [facility] Specimen Anatomical Collection Method Collection Time Receive d Time (Source) Location / / Volume Laterality Blood 02/01/2022 12:45 02/01/2022 PM EDT 12:46 PM EDT Resulting Agency Comment Spec In Lab Jorge L Jacobsonreault INSULATION WORKER BLOOD BANK ORDERABLES Performing Organization Address City/[facility]/ZIP [facility] Phon e Number [address] Prepare RBC (02/01/2022 12:05 PM EDT) athologist [facility] Dispensed? Yes [facility] Specimen Anatomical Collection Method Collection Time Receive d Time (Source) Location / / Volume Laterality Blood 02/01/2022 12:05 02/01/2022 PM EDT 12:15 PM EDT Jorge L Singletaryault INSULATION WORKER BLOOD BANK ORDERABLES Performing Organization Address City/[facility]/[place] [address] (ABNORMAL) Basic Metabolic Panel (non-fasting) (02/01/2022 11:42 AM EDT) athologist [facility] Glucose Lvl 106 65 - 199 [facility] mg/dL [facility] Comment: Diabetes: >=200 mg/dL plus symp toms BUN 49 (H) 10 - 20 mg/dL [facility] Creatinine 3.84 (H) 0.80 - 1.50 mg/dL [facility] Sodium 129 (L) 135 - 145 mmol/L [facility] Potassium 5.1 (H) 3.5 - 5.0 mmol/L [facility] Comment: Please note: ??Patients with WBC >100,00 0 may have falsely elevated Potassium levels. ??For accurate Potassium quantif ication in these patients send serum separator tube (gold top) for subsequent determinations. ??Contact the Clinical Chemistry Laboratory if there are any qu estions. Chloride 98 98 - 107 mmol/L [facility] CO2 21 (L) 22 - 31 mmol/L [facility] Anion Gap 10 5 - 15 mmol/L [facility] Calcium 7.6 (L) 8.5 - 10.5 mg/dL [facility] Estimated GFR 21 (L) >=60 mL/min/1.73 m?? [facility] Comment: This patient's estimated [...] Organization Address City/State/ZIP [place] [address] (ABNORMAL) Hemogram (02/01/2022 11:42 AM EDT) P athologist Signature WBC 36.0 4.0 - 9.5 [facility] (Critical) x10(3)/[facility] LABORATORY Comment: This result has been called to DONTA SY by MARCIA KIMBALL on 02 01 2022 at 1154, and has been read back. RBC 1.98 (L) 4.58 - 5.54 x10(6)/[facility] LABORATORY Hemoglobin 6.4 (L) 13.7 - 16.5 g/dL [facility] Hematocrit 18.5 (L) 40.5 - 48.5 % [facility] MCV 93.4 (H) 82.9 - 93.1 fL [facility] MCH 32.3 (H) 27.5 - 32.1 pg [facility] MCHC 34.6 32.0 - 35.7 g/dL [facility] Platelets 239 145 - 357 x10(3)/[facility] LABORATORY RDWSD 45.0 36.0 - 45.0 [facility] LABORATORY RDWCV 13.7 11.4 - 13.8 % [facility] MPV 10.6 7.6 - 12.9 [facility] LABORATORY nRBC % Auto 0.0 % [facility] nRBC Abs Auto 0.000 0.000 - 0.000 x10(3)/[facility] LABORATORY Specimen Anatomical Collection Method Collection Time Receive d Time (Source) Location / / Volume Laterality Blood 02/01/2022 11:42 02/01/2022 AM EDT 11:46 AM EDT Resulting Agency Comment Spec In Lab Beck Sanz MD HEMATOLOGY ORDERABLES Performing Organization Address City/State/ZIP Code Phon e Number [address] POCT Glucose (02/01/2022 10:42 AM EDT) P athologist Signature POC Glucose 119 65 - 199 [facility] mg/dL [facility] Comment: Supplemental ranges: <140 mg/dL before meals <180 mg/dL all other times of the day Specimen Anatomical Collection Method Collection Time Receive d Time (Source) Location / / Volume Laterality Blood 02/01/2022 10:42 02/01/2022 AM EDT 10:42 AM EDT Beck Sanz MD POINT OF CARE TEST ORDERABLE S Performing Organization Address City/State/ZIP Code Phon e Number [address] Blood culture (02/01/2022 6:35 AM EDT) Patholo gist Method Time Signature Blood Culture No growth JOSH GILMORE at 5 days. [facility] Specimen Anatomical Collection Method Collection Time Receive d Time (Source) Location / / Volume Laterality Blood 02/01/2022 6:35 AM 2 9:38 EDT AM EDT Resulting Agency Comment Spec In Lab Beck Sanz MD MICROBIOLOGY - BLOOD ORDERAB LES Performing Organization Address City/[facility]/ZIP [facility] [place] [address] Blood culture (02/01/2022 6:25 AM EDT) Patholo gist Method Time Signature Blood Culture No growth JOSH GILMORE at 5 days. [facility] Specimen (Source) Anatomical Collection Method Collection Time Re ceived Time Location / / Volume Laterality Blood Pediatric 02/01/2022 6:25 2 9:38 AM EDT AM EDT Resulting Agency Comment Spec In Lab Beck Sanz MD MICROBIOLOGY - BLOOD ORDERAB LES Performing Organization Address [facility] [place] [address] (ABNORMAL) Calcium Ionized Whole Blood, HONORIO (02/01/2022 4:00 AM EDT) Analysis Performed At Patho logist Time Signature pH Honorio 7.43 (H) 7.32 - [facility] 7.42 [facility] ICa Whole 1.13 (L) 1.15 - [facility] Blood 1.33 [facility] mmol/L [facility] Comment: Note: ??Total bilirubin higher than 20 m g/dL may lead to falsely low ionized calcium. Specimen Anatomical Collection Method Collection Time Receive d Time (Source) Location / / Volume Laterality Blood ARTERIAL LINE / 02/01/2022 4:00 AM 2021 4:11 Unknown EDT AM EDT Resulting Agency Comment Spec In Lab Erika Retana MD CHEMISTRY ORDERABLES Performing Organization Address City/[facility]/ZIP [facility] [place] [address] (ABNORMAL) Hemogram (02/01/2022 4:00 AM EDT) P athologist Signature WBC 43.9 4.0 - 9.5 [facility] (Critical) x10(3)/[facility] LABORATORY Comment: This result has been called to GEEAN AMBRIZ by Nicki Bazzi on 02 01 2022 at 0446, and has been read back. RBC 2.20 (L) 4.58 - 5.54 x10(6)/[facility] LABORATORY Hemoglobin 7.1 (L) 13.7 - 16.5 g/dL [facility] Hematocrit 20.3 (L) 40.5 - 48.5 % [facility] MCV 92.3 82.9 - 93.1 fL [facility] MCH 32.3 (H) 27.5 - 32.1 pg [facility] MCHC 35.0 32.0 - 35.7 g/dL [facility] Platelets 264 145 - 357 x10(3)/[facility] LABORATORY RDWSD 43.8 36.0 - 45.0 [facility] LABORATORY RDWCV 13.2 11.4 - 13.8 % [facility] MPV 10.7 7.6 - 12.9 [facility] LABORATORY nRBC % Auto 0.0 % [facility] nRBC Abs Auto 0.000 0.000 - 0.000 x10(3)/[facility] LABORATORY Specimen Anatomical Collection Method Collection Time Receive d Time (Source) Location / / Volume Laterality Blood 02/01/2022 4:00 AM 4:11 EDT AM EDT Resulting Agency Comment Spec In Lab Beck Sanz MD HEMATOLOGY ORDERABLES Performing Organization Address City/State/ZIP [place] [address] (ABNORMAL) Differential, Automated (02/01/2022 1:02 AM EDT) [facility] gist Method Time Signature Neutrophils % 73.9 % [facility] Neutr Abs (ANC) 30.91 (H) 1.70 - [facility] 6.10 [facility] x10(3)/[facility] LABORATORY Lymphocytes % 7.5 % [facility] Lymphocytes Abs 3.1 0.9 - 3.2 [facility] x10(3)/[facility] LABORATORY Monocytes % 7.7 % [facility] Monocyte Abs 3.2 (H) 0.3 - 0.9 [facility] x10(3)/[facility] LABORATORY Eosinophils % 0.5 % [facility] Eosinophils Abs 0.2 0.0 - 0.4 [facility] x10(3)/[facility] LABORATORY Basophils % 0.4 % [facility] Basophils Abs 0.2 (H) 0.0 - 0.1 [facility] x10(3)/[facility] LABORATORY Immature Gran % 10.00 % [facility] Comment: Immature granulocytes(IG's)percentage an d absolute count will include metamyelocytes, myelocytes, and promyelo cytes. Blood smears from CBCs yielding IG's will be scanned manually for concor dance. If this scan disagrees with the automated IG or if promyelocytes are not ed, a manual differential will be performed. Gemini Gran Abs 4.18 (H) 0.00 - 0.04 x10(3)/[facility] LABORATORY Specimen Anatomical Collection Method Collection Time Receive d Time (Source) Location / / Volume Laterality Blood 02/01/2022 1:02 AM 2 1:13 EDT AM EDT Resulting Agency Comment Spec In Lab Dimas Hernandez MD HEMATOLOGY ORDERABLES Performing Organization Address City/State/ZIP [place] [address] (ABNORMAL) Hemogram (02/01/2022 1:02 AM EDT) P athologist Signature WBC 41.8 4.0 - 9.5 [facility] (Critical) x10(3)/[facility] LABORATORY Comment: This result has been called to PEPE SORENSON by Nicki Bazzi on 02 01 2022 at 0132, and has been read back. RBC 2.23 (L) 4.58 - 5.54 x10(6)/[facility] LABORATORY Hemoglobin 7.2 (L) 13.7 - 16.5 g/dL [facility] Hematocrit 20.6 (L) 40.5 - 48.5 % [facility] MCV 92.4 82.9 - 93.1 [facility] LABORATORY MCH 32.3 (H) 27.5 - 32.1 pg [facility] MCHC 35.0 32.0 - 35.7 g/dL [facility] Platelets 252 145 - 357 x10(3)/[facility] LABORATORY RDWSD 43.6 36.0 - 45.0 [facility] LABORATORY RDWCV 13.3 11.4 - 13.8 % [facility] MPV 10.8 7.6 - 12.9 [facility] LABORATORY nRBC % Auto 0.0 % [facility] nRBC Abs Auto 0.000 0.000 - 0.000 x10(3)/[facility] LABORATORY Specimen Anatomical Collection Method Collection Time Receive d Time (Source) Location / / Volume Laterality Blood 02/01/2022 1:02 AM 1:13 EDT AM EDT Resulting Agency Comment Spec In Lab Dimas Hernandez MD HEMATOLOGY ORDERABLES Performing Organization Address City/State/ZIP [place] [address] (ABNORMAL) Calcium Ionized Whole Blood, HONORIO (02/01/2022 1:02 AM EDT) Analysis Performed At Patho logist Time Signature pH Honorio 7.42 7.32 - [facility] 7.42 [facility] ICa Whole 1.09 (L) 1.15 - [facility] Blood 1.33 [facility] mmol/L HOSPITAL LABORATORY Comment: Note: ??Total bilirubin [...] Organization Address City/State/ZIP [place] [address] (ABNORMAL) Basic Metabolic Panel (non-fasting) (02/01/2022 1:02 AM EDT) athologist Signature Glucose Lvl 125 65 - 199 [facility] mg/dL [facility] Comment: Diabetes: >=200 mg/dL plus symp toms BUN 50 (H) 10 - 20 mg/dL [facility] Creatinine 3.91 (H) 0.80 - 1.50 mg/dL [facility] Sodium 127 (L) 135 - 145 mmol/L [facility] Potassium 5.2 (H) 3.5 - 5.0 mmol/L [facility] Comment: Please note: ??Patients with WBC >100,00 0 may have falsely elevated Potassium levels. ??For accurate Potassium quantif ication in these patients send serum separator tube (gold top) for subsequent determinations. ??Contact the Clinical Chemistry Laboratory if there are any qu estions. Chloride 97 (L) 98 - 107 mmol/L [facility] CO2 21 (L) 22 - 31 mmol/L [facility] Anion Gap 9 5 - 15 mmol/L [facility] Calcium 7.6 (L) 8.5 - 10.5 mg/dL [facility] Estimated GFR 20 (L) >=60 mL/min/1.73 m?? [facility] Comment: This patient's estimated [...] Organization Address City/State/ZIP Code Phon e Number [address] (ABNORMAL) Phosphorus (02/01/2022 1:02 AM EDT) P athologist Signature Phosphorus 4.9 (H) 2.5 - 4.5 [facility] mg/dL [facility] Specimen Anatomical Collection Method Collection Time Receive d Time (Source) Location / / Volume Laterality Blood 02/01/2022 1:02 AM 2 1:13 EDT AM EDT Resulting Agency Comment Spec In Lab Gela Novak MD CHEMISTRY ORDERABLES Performing Organization Address City/[facility]/[place] [address] Magnesium (02/01/2022 1:02 AM EDT) P athologist Signature Magnesium 0.94 0.69 - 1.07 [facility] mmol/L [facility] Specimen Anatomical Collection Method Collection Time Receive d Time (Source) Location / / Volume Laterality Blood 02/01/2022 1:02 AM 2 1:13 EDT AM EDT Resulting Agency Comment Spec In Lab Gela Novak MD CHEMISTRY ORDERABLES Performing Organization Address City/[facility]/ZIP [facility] [place] [address] (ABNORMAL) Calcium Ionized Whole Blood, HONORIO (01/31/2022 10:30 PM EDT) Analysis Performed At Patho logist Time Signature pH Honorio 7.40 7.32 - [facility] 7.42 [facility] ICa Whole 1.02 (L) 1.15 - [facility] Blood 1.33 [facility] mmol/L HOSPITAL LABORATORY Comment: Note: ??Total bilirubin higher than 20 m g/dL may lead to falsely low ionized calcium. Specimen Anatomical Collection Method Collection Time Receive d Time (Source) Location / / Volume Laterality Blood ARTERIAL LINE / 01/31/2022 10:30 02/01/20 22 Unknown PM EDT 10:36 PM EDT Resulting Agency Comment Spec In Lab Erika Retana MD CHEMISTRY ORDERABLES Performing Organization Address City/[facility] [place] [address] POCT Glucose (01/31/2022 7:39 PM EDT) P athologist Signature POC Glucose 150 65 - 199 [facility] mg/dL [facility] Comment: Supplemental ranges: <140 mg/dL before meals <180 mg/dL all other times of the day Specimen Anatomical Collection Method Collection Time Receive d Time (Source) Location / / Volume Laterality Blood 01/31/2022 7:39 PM 7:39 EDT PM EDT Beck Sanz MD POINT OF CARE TEST ORDERABLE S Performing Organization Address [facility] [place] [address] (ABNORMAL) Calcium Ionized Whole Blood, HONORIO (01/31/2022 7:36 PM EDT) Analysis Performed At Patho logist Time Signature pH Honorio 7.44 (H) 7.32 - [facility] 7.42 [facility] ICa Whole 0.98 (L) 1.15 - [facility] Blood 1.33 [facility] mmol/L HOSPITAL LABORATORY Comment: Note: ??Total bilirubin [...] Organization Address City/State/[place] [address] (ABNORMAL) Electrolytes panel (01/31/2022 4:54 PM EDT) athologist Signature Sodium 126 (L) 135 - 145 [facility] mmol/L [facility] Potassium 5.9 (H) 3.5 - 5.0 [facility] mmol/L [facility] Comment: Please note: ??Patients with WBC >100,00 0 may have falsely elevated Potassium levels. ??For accurate Potassium quantif ication in these patients send serum separator tube (gold top) for subsequent determinations. ??Contact the Clinical Chemistry Laboratory if there are any qu estions. Chloride 95 (L) 98 - 107 mmol/L [facility] CO2 20 (L) 22 - 31 mmol/L [facility] Anion Gap 11 5 - 15 mmol/L [facility] Specimen Anatomical Collection Method Collection Time Receive d Time (Source) Location / / Volume Laterality Blood 01/31/2022 4:54 PM 5:07 EDT PM EDT Resulting Agency Comment Spec In Lab Agnieszka López APRN CHEMISTRY ORDERABLES Performing Organization Address City/[facility]/[place] [address] POCT Glucose (01/31/2022 10:03 AM EDT) athologist Signature POC Glucose 108 65 - 199 [facility] mg/dL [facility] Comment: Supplemental ranges: <140 mg/dL before meals <180 mg/dL all other times of the day Specimen Anatomical Collection Method Collection Time Receive d Time (Source) Location / / Volume Laterality Blood 01/31/2022 10:03 01/31/2022 AM EDT 10:03 AM EDT Beck Sanz MD POINT OF CARE TEST ORDERABLE S Performing Organization Address City/State/[place] [address] APTT (01/31/2022 8:05 AM EDT) athologist Signature PTT 36 25 - 37 sec [facility] Comment: The PTT is [...] Sanz MD HEMATOLOGY ORDERABLES Performing Organization Address City/[facility] [place] [address] (ABNORMAL) Electrolytes panel (01/31/2022 6:10 AM EDT) athologist Signature Sodium 126 (L) 135 - 145 [facility] mmol/L [facility] Potassium 5.1 (H) 3.5 - 5.0 [facility] mmol/L [facility] Comment: Please note: ??Patients with WBC >100,00 0 may have falsely elevated Potassium levels. ??For accurate Potassium quantif ication in these patients send serum separator tube (gold top) for subsequent determinations. ??Contact the Clinical Chemistry Laboratory if there are any qu estions. Chloride 94 (L) 98 - 107 mmol/L [facility] CO2 22 22 - 31 mmol/L [facility] Anion Gap 10 5 - 15 mmol/L [facility] Specimen Anatomical Collection Method Collection Time Receive d Time (Source) Location / / Volume Laterality Blood 01/31/2022 6:10 AM 2 6:15 EDT AM EDT Resulting Agency Comment Spec In Lab Erika Retana MD CHEMISTRY ORDERABLES Performing Organization Address City/[facility]/ZIP [facility] [place] [address] POCT Glucose (01/31/2022 4:16 AM EDT) athologist Signature POC Glucose 94 65 - 199 [facility] mg/dL [facility] Comment: Supplemental ranges: <140 mg/dL before meals <180 mg/dL all other times of the day Specimen Anatomical Collection Method Collection Time Receive d Time (Source) Location / / Volume Laterality Blood 01/31/2022 4:16 AM 4:16 EDT AM EDT Beck Sanz MD POINT OF CARE TEST ORDERABLE S Performing Organization Address City/State/ZIP [place] [address] (ABNORMAL) BLOOD GAS 2 VENOUS (01/31/2022 12:43 AM EDT) Analysis Performed At Patho logist Time Signature pH Honorio 7.44 (H) 7.32 - [facility] 7.42 [facility] pCO2 Honorio 30 (L) 41 - 51 [facility] LABORATORY pO2 Honorio 34 25 - 40 [facility] LABORATORY HCO3 Honorio 20.2 mmol/L [facility] LABORATORY BE Honorio -4.0 mmol/L [facility] LABORATORY Hgb Blood Gas 10.1 (L) 13.7 - [facility] 16.5 g/dL [facility] LABORATORY O2HB Honorio 69.5 % [facility] LABORATORY COHB Honorio 0.1 % [facility] LABORATORY Comment: Nonsmokers: 0.5-1.5% COHB Smokers: Variable, but usually less than 10% Toxic: 20-30% COHB Lethal: Greater than 60% COHB METHB Honorio 0.3 <=1.5 % [facility] LABORATORY Na Whole Blood 120 (L) 135 - 145 mmol/L [facility] LABORATORY K Whole Blood 4.9 3.5 - 5.0 mmol/L [facility] LABORATORY Comment: Please note: Patients with WBC >100,000 may have falsely elevated Potassium levels. Contact the Clinical Chemistry L aboratory if there are any questions. ICa Whole Blood 1.05 (L) 1.15 - 1.33 mmol/L [facility] LABORATORY Comment: Note: ??Total bilirubin higher than 20 m g/dL may lead to falsely low ionized calcium. CL Whole Blood 95 (L) 98 - 107 mmol/L [facility] LABORATORY Gluc Whole Bld 110 65 - 199 mg/dL [facility] LABORATORY Comment: Diabetes: >=200 mg/dL plus symp toms Lactate WB 1.0 0.5 - 2.2 mmol/L [facility] LABORATORY BGas Source Venous [facility] LABORATORY Specimen Anatomical Collection Method Collection Time Receive d Time (Source) Location / / Volume Laterality Blood 01/31/2022 12:43 01/31/2022 AM EDT 12:43 AM EDT Beck Sanz MD CHEMISTRY ORDERABLES Performing Organization Address City/State/ZIP [place] [address] (ABNORMAL) Differential, Automated (01/31/2022 12:42 AM EDT) [facility] gist Method Time Signature Neutrophils % 65.8 % [facility] LABORATORY Neutr Abs (ANC) 23.59 (H) 1.70 - [facility] 6.10 [facility] x10(3)/[facility] LABORATORY Lymphocytes % 8.0 % [facility] LABORATORY Lymphocytes Abs 2.9 0.9 - 3.2 [facility] x10(3)[facility] LABORATORY Monocytes % 9.6 % [facility] LABORATORY Monocyte Abs 3.4 (H) 0.3 - 0.9 [facility] x10(3)[facility] LABORATORY Eosinophils % 0.9 % [facility] LABORATORY Eosinophils Abs 0.3 0.0 - 0.4 [facility] x10(3)[facility] LABORATORY Basophils % 0.5 % [facility] LABORATORY Basophils Abs 0.2 (H) 0.0 - 0.1 [facility] x10(3)[facility] LABORATORY Immature Gran % 15.20 % [facility] LABORATORY Comment: Immature granulocytes(IG's)percentage an d absolute count will include metamyelocytes, myelocytes, and promyelo cytes. Blood smears from CBCs yielding IG's will be scanned manually for concor dance. If this scan disagrees with the automated IG or if promyelocytes are not ed, a manual differential will be performed. Gemini Gran Abs 5.46 (H) 0.00 - 0.04 x10(3)/[facility] LABORATORY Specimen Anatomical Collection Method Collection Time Receive d Time (Source) Location / / Volume Laterality Blood 01/31/2022 12:42 01/31/2022 AM EDT 12:49 AM EDT Resulting Agency Comment Spec In Lab Cristina Hillman APRN HEMATOLOGY ORDERABLES Performing Organization Address City/State/ZIP [place] [address] (ABNORMAL) Hemogram (01/31/2022 12:42 AM EDT) athologist Signature WBC 35.8 4.0 - 9.5 [facility] (Critical) x10(3)/[facility] LABORATORY Comment: This result has been called to PAPITO Boss by Reymundo De Luna on 01 31 2022 at 0103, and has been read back. RBC 2.84 (L) 4.58 - 5.54 x10(6)/[facility] LABORATORY Hemoglobin 9.1 (L) 13.7 - 16.5 g/dL [facility] LABORATORY Hematocrit 25.9 (L) 40.5 - 48.5 % [facility] LABORATORY MCV 91.2 82.9 - 93.1 [facility] LABORATORY MCH 32.0 27.5 - 32.1 pg [facility] LABORATORY MCHC 35.1 32.0 - 35.7 g/dL [facility] LABORATORY Platelets 195 145 - 357 x10(3)/[facility] LABORATORY RDWSD 42.7 36.0 - 45.0 [facility] LABORATORY RDWCV 13.2 11.4 - 13.8 % [facility] LABORATORY MPV 10.6 7.6 - 12.9 [facility] LABORATORY nRBC % Auto 0.0 % [facility] LABORATORY nRBC Abs Auto 0.000 0.000 - 0.000 x10(3)/[facility] LABORATORY Specimen Anatomical Collection Method Collection Time Receive d Time (Source) Location / / Volume Laterality Blood 01/31/2022 12:42 01/31/2022 AM EDT 12:49 AM EDT Resulting Agency Comment Spec In Lab Jaquelinashley Sal Hillman APRN HEMATOLOGY ORDERABLES Performing Organization Address City/State/[place] [address] (ABNORMAL) Creatinine (01/31/2022 12:42 AM EDT) Analysis Performed At Patho logist Time Signature Creatinine 4.01 (H) 0.80 - [facility] 1.50 mg/dL [facility] LABORATORY Estimated GFR 20 (L) >=60 [facility] mL/min/1.7 [facility] 3 ?? [facility] LABORATORY Comment: This patient's [...] Organization Address City/State/[place] [address] (ABNORMAL) BUN (01/31/2022 12:42 AM EDT) P athologist Signature BUN 50 (H) 10 - 20 [facility] mg/dL [facility] LABORATORY Specimen Anatomical Collection Method Collection Time Receive d Time (Source) Location / / Volume Laterality Blood 01/31/2022 12:42 01/31/2022 AM EDT 12:49 AM EDT Resulting Agency Comment Spec In Lab Beck Sanz MD CHEMISTRY ORDERABLES Performing Organization Address City/[facility]/[place] [address] (ABNORMAL) Electrolytes panel (01/31/2022 12:42 AM EDT) P athologist Signature Sodium 123 (L) 135 - 145 [facility] mmol/[facility] LABORATORY Potassium 5.1 (H) 3.5 - 5.0 [facility] mmol/L [facility] LABORATORY Comment: Please note: ??Patients with WBC >100,00 0 may have falsely elevated Potassium levels. ??For accurate Potassium quantif ication in these patients send serum separator tube (gold top) for subsequent determinations. ??Contact the Clinical Chemistry Laboratory if there are any qu estions. Chloride 94 (L) 98 - 107 mmol/L [facility] LABORATORY CO2 21 (L) 22 - 31 mmol/L [facility] LABORATORY Anion Gap 8 5 - 15 mmol/L [facility] LABORATORY Specimen Anatomical Collection Method Collection Time Receive d Time (Source) Location / / Volume Laterality Blood 01/31/2022 12:42 01/31/2022 AM EDT 12:49 AM EDT Resulting Agency Comment Spec In Lab Erika Retana MD CHEMISTRY ORDERABLES Performing Organization Address City/[facility]/[place] [address] (ABNORMAL) Calcium Ionized Whole Blood, HONORIO (01/30/2022 8:17 PM EDT) Analysis Performed At Patho logist Time Signature pH Honorio 7.42 7.32 - [facility] 7.42 [facility] LABORATORY ICa Whole 0.99 (L) 1.15 - [facility] Blood 1.33 [facility] mmol/L [facility] LABORATORY Comment: Note: ??Total bilirubin higher than 20 m g/dL may lead to falsely low ionized calcium. Specimen Anatomical Collection Method Collection Time Receive d Time (Source) Location / / Volume Laterality Blood ARTERIAL LINE / 01/30/2022 8:17 PM 2021 8:24 Unknown EDT PM EDT Resulting Agency Comment Spec In Lab Erika Retana MD CHEMISTRY ORDERABLES Performing Organization Address City/[facility]/ZIP Code Phon e Number [address] APTT (01/30/2022 8:17 PM EDT) athologist Signature PTT 30 25 - 37 sec [facility] LABORATORY Comment: The PTT is [...] Sanz MD HEMATOLOGY ORDERABLES Performing Organization Address City/[facility]/[place] [address] POCT Glucose (01/30/2022 8:00 PM EDT) athologist Signature POC Glucose 144 65 - 199 [facility] mg/dL [facility] LABORATORY Comment: Supplemental ranges: <140 mg/dL before meals <180 mg/dL all other times of the day Specimen Anatomical Collection Method Collection Time Receive d Time (Source) Location / / Volume Laterality Blood 01/30/2022 8:00 PM 2 8:00 EDT PM EDT Beck Sanz MD POINT OF CARE TEST ORDERABLE S Performing Organization Address City/[facility]/ZIP [facility] Phon e Number [address] CT Chest Abdomen Pelvis w [...] who have questions please contact the health care associate that requested your imaging first. [...] ho have questions please contact the health care associate that requested your imaging first. Agnieszka López APRN IMG CT ORDERABLES (ABNORMAL) Electrolytes panel (01/30/2022 12:23 PM EDT) athologist Signature Sodium 122 (L) 135 - 145 [facility] mmol/L [facility] LABORATORY Potassium 5.2 (H) 3.5 - 5.0 [facility] mmol/L [facility] LABORATORY Comment: Please note: ??Patients with WBC >100,00 0 may have falsely elevated Potassium levels. ??For accurate Potassium quantif ication in these patients send serum separator tube (gold top) for subsequent determinations. ??Contact the Clinical Chemistry Laboratory if there are any qu estions. Chloride 92 (L) 98 - 107 mmol/L [facility] LABORATORY CO2 21 (L) 22 - 31 mmol/L [facility] LABORATORY Anion Gap 9 5 - 15 mmol/L [facility] LABORATORY Specimen Anatomical Collection Method Collection Time Receive d Time (Source) Location / / Volume Laterality Blood 01/30/2022 12:23 01/30/2022 PM EDT 12:33 PM EDT Resulting Agency Comment Spec In Lab Agnieszka López APRN CHEMISTRY ORDERABLES Performing Organization Address City/State/ZIP [place] [address] POCT Glucose (01/30/2022 10:42 AM EDT) athologist Signature POC Glucose 140 65 - 199 [facility] mg/dL [facility] LABORATORY Comment: Supplemental ranges: <140 mg/dL before meals <180 mg/dL all other times of the day Specimen Anatomical Collection Method Collection Time Receive d Time (Source) Location / / Volume Laterality Blood 01/30/2022 10:42 01/30/2022 AM EDT 10:42 AM EDT Beck Sanz MD POINT OF CARE TEST ORDERABLE S Performing Organization Address City/[facility]/ZIP Code Phon e Number [place] [phone] HOS[address] LAB[address]ORY [address] EKG 12 Lead (01/30/2022 9:18 AM EDT) Component Value Ref Range Test Analysis Performed Pathologis t Method Time At Signature Ventricular rate 111 BPM MUSE SYSTEM Atrial Rate 111 BPM MUSE SYSTEM P-R Interval 136 ms MUSE SYSTEM QRS Duration 84 ms MUSE SYSTEM Q-T Interval 308 ms MUSE SYSTEM QTC Calculated 418 ms MUSE SYSTEM (Bezet) Calculated P Echo 13 degrees MUSE SYSTEM Calculated R Echo 31 degrees MUSE SYSTEM Calculated T Echo -8 degrees MUSE SYSTEM INTERPRETATION Sinus tachycardia MUSE SY STEM Nonspecific T wave abnormality Abnormal ECG When compared with ECG of 23-JAN-2022 00:46, heart rate has slowed Confirmed by Clem Guo ([id number]) on 02/01/2022 1:23:54 PM Specimen Anatomical Collection Method Collection Time Receive d Time (Source) Location / / Volume Laterality 01/30/2022 9:18 AM 1:23 EDT PM EDT Anthony Olga Harvey INSULATION WORKER ECG ORDERABLES Performing Organization Address City/[facility]/ZIP Code Phon e Number MUSE SYSTEM POCT Glucose (01/30/2022 4:21 AM EDT) P athologist Signature POC Glucose 119 65 - 199 [facility] mg/dL [facility] LABORATORY Comment: Supplemental ranges: <140 mg/dL before meals <180 mg/dL all other times of the day Specimen Anatomical Collection Method Collection Time Receive d Time (Source) Location / / Volume Laterality Blood 01/30/2022 4:21 AM 4:21 EDT AM EDT Beck Sanz MD POINT OF CARE TEST ORDERABLE S Performing Organization Address City/[facility]/ZIP Code Phon e Number [place] [phone] HOSPITAL LAB[address]ORY [address] Scan, Peripheral Blood (01/30/2022 4:10 AM EDT) Patholo gist Method Time Signature Plat Estimate Normal [facility] LABORATORY RBC Morphology Normal [facility] LABORATORY Toxic Present [facility] LABORATORY Dohle Bodies Present [facility] LABORATORY Specimen Anatomical Collection Method Collection Time Receive d Time (Source) Location / / Volume Laterality Blood 01/30/2022 4:10 AM 4:36 EDT AM EDT Resulting Agency Comment Spec In Lab Cristina Hillman APRN HEMATOLOGY ORDERABLES Performing Organization Address City/State/ZIP [place] [address] (ABNORMAL) Differential, Automated (01/30/2022 4:10 AM EDT) [facility] gist Method Time Signature Neutrophils % 60.7 % [facility] LABORATORY Neutr Abs (ANC) 23.73 (H) 1.70 - [facility] 6.10 [facility] x10(3)/[facility] LABORATORY Lymphocytes % 7.2 % [facility] LABORATORY Lymphocytes Abs 2.8 0.9 - 3.2 [facility] x10(3)/[facility] LABORATORY Monocytes % 9.3 % [facility] LABORATORY Monocyte Abs 3.6 (H) 0.3 - 0.9 [facility] x10(3)/[facility] LABORATORY Eosinophils % 0.4 % [facility] LABORATORY Eosinophils Abs 0.2 0.0 - 0.4 [facility] x10(3)/[facility] LABORATORY Basophils % 0.2 % [facility] LABORATORY Basophils Abs 0.1 0.0 - 0.1 [facility] x10(3)/[facility] LABORATORY Immature Gran % 22.20 % [facility] LABORATORY Comment: Immature granulocytes(IG's)percentage an d absolute count will include metamyelocytes, myelocytes, and promyelo cytes. Blood smears from CBCs yielding IG's will be scanned manually for concor dance. If this scan disagrees with the automated IG or if promyelocytes are not ed, a manual differential will be performed. Gemini Gran Abs 8.67 (H) 0.00 - 0.04 x10(3)/[facility] LABORATORY Specimen Anatomical Collection Method Collection Time Receive d Time (Source) Location / / Volume Laterality Blood 01/30/2022 4:10 AM 2 4:36 EDT AM EDT Resulting Agency Comment Spec In Lab Cristina Huang Rafy AVENDAÑO HEMATOLOGY ORDERABLES Performing Organization Address City/State/ZIP [place] [address] (ABNORMAL) Hemogram (01/30/2022 4:10 AM EDT) P athologist Signature WBC 39.1 4.0 - 9.5 [facility] (Critical) x10(3)/[facility] LABORATORY Comment: This result has been called to BECK GUILLEN by Shelli Sauceda on 01 30 2022 at 0448, and has been read back. RBC 3.18 (L) 4.58 - 5.54 x10(6)/[facility] LABORATORY Hemoglobin 10.5 (L) 13.7 - 16.5 g/dL [facility] LABORATORY Hematocrit 29.3 (L) 40.5 - 48.5 % [facility] LABORATORY MCV 92.1 82.9 - 93.1 fL [facility] LABORATORY MCH 33.0 (H) 27.5 - 32.1 pg [facility] LABORATORY MCHC 35.8 (H) 32.0 - 35.7 g/dL [facility] LABORATORY Platelets 195 145 - 357 x10(3)/[facility] LABORATORY RDWSD 43.3 36.0 - 45.0 [facility] LABORATORY RDWCV 13.0 11.4 - 13.8 % [facility] LABORATORY MPV 10.6 7.6 - 12.9 [facility] LABORATORY nRBC % Auto 0.0 % [facility] LABORATORY nRBC Abs Auto 0.000 0.000 - 0.000 x10(3)/[facility] LABORATORY Specimen Anatomical Collection Method Collection Time Receive d Time (Source) Location / / Volume Laterality Blood 01/30/2022 4:10 AM 2 4:36 EDT AM EDT Resulting Agency Comment Spec In Lab Cristina Hillman APRN HEMATOLOGY ORDERABLES Performing Organization Address City/State/ZIP [place] [address] (ABNORMAL) Blood Gas Venous ([facility]) (01/30/2022 4:10 AM EDT) Analysis Performed At Patho logist Time Signature pH Honorio 7.43 (H) 7.32 - [facility] 7.42 [facility] LABORATORY pCO2 Honorio 34 (L) 41 - 51 [facility] LABORATORY pO2 Honorio 35 25 - 40 [facility] LABORATORY HCO3 Honorio 22.2 mmol/L [facility] LABORATORY BE Honorio -2.2 mmol/L [facility] LABORATORY Hgb Blood Gas 11.6 (L) 13.7 - [facility] 16.5 g/dL [facility] LABORATORY O2HB Honorio 72.9 % [facility] LABORATORY COHB Honorio 1.0 % [facility] LABORATORY Comment: Nonsmokers: 0.5-1.5% COHB Smokers: Variable, but usually less than 10% Toxic: 20-30% COHB Lethal: Greater than 60% COHB METHB Honorio 0.3 <=1.5 % [facility] LABORATORY Na Whole Blood 123 (L) 135 - 145 mmol/L [facility] LABORATORY K Whole Blood 5.1 (H) 3.5 - 5.0 mmol/L [facility] LABORATORY Comment: Please note: Patients with WBC >100,000 may have falsely elevated Potassium levels. Contact the Clinical Chemistry L aboratory if there are any questions. ICa Whole Blood 1.05 (L) 1.15 - 1.33 mmol/L [facility] LABORATORY Comment: Note: ??Total bilirubin higher than 20 m g/dL may lead to falsely low ionized calcium. CL Whole Blood 97 (L) 98 - 107 mmol/L [facility] LABORATORY Gluc Whole Bld 142 65 - 199 mg/dL [facility] LABORATORY Comment: Diabetes: >=200 mg/dL plus symp toms Lactate WB 1.2 0.5 - 2.2 mmol/L [facility] LABORATORY BGas Source Venous [facility] LABORATORY Specimen Anatomical Collection Method Collection Time Receive d Time (Source) Location / / Volume Laterality Blood Venous Draw / 01/30/2022 4:10 AM 01/31/20 22 4:31 Unknown EDT AM EDT Resulting Agency Comment Spec In Lab Angelina Reynoso MD CHEMISTRY ORDERABLES Performing Organization Address City/[facility]/[place] [address] (ABNORMAL) CK (01/30/2022 4:10 AM EDT) athologist Signature CK, Total 5,685 (H) 0 - 200 [facility] unit/[facility] LABORATORY Specimen Anatomical Collection Method Collection Time Receive d Time (Source) Location / / Volume Laterality Blood 01/30/2022 4:10 AM 2 4:36 EDT AM EDT Resulting Agency Comment Spec In Lab Cristina Hillman APRN CHEMISTRY ORDERABLES Performing Organization Address City/[facility]/[place] [address] (ABNORMAL) Basic Metabolic Panel (non-fasting) (01/30/2022 4:10 AM EDT) athologist Signature Glucose Lvl 146 65 - 199 [facility] mg/dL [facility] LABORATORY Comment: Diabetes: >=200 mg/dL plus symp toms BUN 43 (H) 10 - 20 mg/dL [facility] LABORATORY Creatinine 3.71 (H) 0.80 - 1.50 mg/dL [facility] LABORATORY Sodium 127 (L) 135 - 145 mmol/L [facility] LABORATORY Potassium 5.3 (H) 3.5 - 5.0 mmol/L [facility] LABORATORY Comment: Please note: ??Patients with WBC >100,00 0 may have falsely elevated Potassium levels. ??For accurate Potassium quantif ication in these patients send serum separator tube (gold top) for subsequent determinations. ??Contact the Clinical Chemistry Laboratory if there are any qu estions. Chloride 96 (L) 98 - 107 mmol/L [facility] LABORATORY CO2 22 22 - 31 mmol/L [facility] LABORATORY Anion Gap 9 5 - 15 mmol/L [facility] LABORATORY Calcium 7.5 (L) 8.5 - 10.5 mg/dL [facility] LABORATORY Estimated GFR 22 (L) >=60 mL/min/1.73 m?? [facility] LABORAT[facility] Comment: This patient's estimated [...] Han DO CHEMISTRY ORDERABLES Performing Organization Address City/[facility]/ZIP Code Phon e Number [address] Phosphorus (01/30/2022 4:10 AM EDT) P athologist Signature Phosphorus 4.0 2.5 - 4.5 [facility] mg/dL [facility] LABORATORY Specimen Anatomical Collection Method Collection Time Receive d Time (Source) Location / / Volume Laterality Blood 01/30/2022 4:10 AM 2 4:36 EDT AM EDT Resulting Agency Comment Spec In Lab Gela Novka MD CHEMISTRY ORDERABLES Performing Organization Address City/[facility]/ZIP Code Phon e Number [address] Magnesium (01/30/2022 4:10 AM EDT) athologist Signature Magnesium 0.92 0.69 - 1.07 [facility] mmol/L [facility] LABORATORY Specimen Anatomical Collection Method Collection Time Receive d Time (Source) Location / / Volume Laterality Blood 01/30/2022 4:10 AM 2 4:36 EDT AM EDT Resulting Agency Comment Spec In Lab Gela Novak MD CHEMISTRY ORDERABLES Performing Organization Address City/[facility]/ZIP Code Phon e Number [address] POCT Glucose (01/30/2022 12:07 AM EDT) athologist Signature POC Glucose 115 65 - 199 [facility] mg/dL [facility] LABORATORY Comment: Supplemental ranges: <140 mg/dL before meals <180 mg/dL all other times of the day Specimen Anatomical Collection Method Collection Time Receive d Time (Source) Location / / Volume Laterality Blood 01/30/2022 12:07 01/30/2022 AM EDT 12:07 AM EDT Beck Sanz MD POINT OF CARE TEST ORDERABLE S Performing Organization Address City/[facility]/ZIP Code Phon e Number [address] POCT Glucose (01/29/2022 9:40 PM EDT) athologist Signature POC Glucose 128 65 - 199 [facility] mg/dL [facility] LABORATORY Comment: Supplemental ranges: <140 mg/dL before meals <180 mg/dL all other times of the day Specimen Anatomical Collection Method Collection Time Receive d Time (Source) Location / / Volume Laterality Blood 01/29/2022 9:40 PM 2 9:40 EDT PM EDT Beck Sanz MD POINT OF CARE TEST ORDERABLE S Performing Organization Address City/[facility]/ZIP Code Phon e Number [address] (ABNORMAL) Phosphorus (01/29/2022 9:35 PM EDT) athologist Signature Phosphorus 4.9 (H) 2.5 - 4.5 [facility] mg/dL [facility] LABORATORY Specimen Anatomical Collection Method Collection Time Receive d Time (Source) Location / / Volume Laterality Blood 01/29/2022 9:35 PM 2 9:46 EDT PM EDT Resulting Agency Comment Spec In Lab Angelina Reynoso MD CHEMISTRY ORDERABLES Performing Organization Address City/[facility]/ZIP Code Phon e Number [address] Scan, Peripheral Blood (01/29/2022 2:55 AM EDT) P athologist Signature Plat Estimate Normal [facility] LABORATORY RBC Morphology Normal [facility] LABORATORY Specimen Anatomical Collection Method Collection Time Receive d Time (Source) Location / / Volume Laterality Blood 01/29/2022 2:55 AM 2 3:06 EDT AM EDT Resulting Agency Comment Spec In Lab Cristina Hillman APRN HEMATOLOGY ORDERABLES Performing Organization Address City/[facility]/[place] [address] (ABNORMAL) Differential, Automated (01/29/2022 2:55 AM EDT) Patholo gist Method Time Signature Neutrophils % 47.3 % [facility] LABORATORY Neutr Abs (ANC) 13.86 (H) 1.70 - [facility] 6.10 [facility] x10(3)/[facility] LABORATORY Lymphocytes % 8.8 % [facility] LABORATORY Lymphocytes Abs 2.6 0.9 - 3.2 [facility] x10(3)/[facility] LABORATORY Monocytes % 9.4 % [facility] LABORATORY Monocyte Abs 2.8 (H) 0.3 - 0.9 [facility] x10(3)/[facility] LABORATORY Eosinophils % 1.1 % [facility] LABORATORY Eosinophils Abs 0.3 0.0 - 0.4 [facility] x10(3)/[facility] LABORATORY Basophils % 0.2 % [facility] LABORATORY Basophils Abs 0.1 0.0 - 0.1 [facility] x10(3)/[facility] LABORATORY Immature Gran % 33.20 % [facility] Comment: Immature granulocytes(IG's)percentage an d absolute count will include metamyelocytes, myelocytes, and promyelo cytes. Blood smears from CBCs yielding IG's will be scanned manually for concor dance. If this scan disagrees with the automated IG or if promyelocytes are not ed, a manual differential will be performed. Gemini Gran Abs 9.75 (H) 0.00 - 0.04 x10(3)/[facility] LABORATORY Specimen Anatomical Collection Method Collection Time Receive d Time (Source) Location / / Volume Laterality Blood 01/29/2022 2:55 AM 3:06 EDT AM EDT Resulting Agency Comment Spec In Lab Cristina Hillman APRN HEMATOLOGY ORDERABLES Performing Organization Address City/State/ZIP Code Phon e Number [place] [id number] HOSPITAL LABORATORY Drive (ABNORMAL) Hemogram (01/29/2022 2:55 AM EDT) Analysis Performed At Patho logist Time Signature WBC 29.4 (H) 4.0 - 9.5 [facility] x10(3)/[facility] LABORATORY RBC 3.34 (L) 4.58 - [facility] [place] 5.54 [facility] x10(6)/[facility] LABORATORY Hemoglobin 10.7 (L) 13.7 - [facility] 16.[facility] g/dL [facility] Hematocrit 31.3 (L) 40.5 - [facility] [place] 48.5 % [facility] MCV 93.7 (H) 82.9 - [facility] [place] 93.1 [facility] LABORATORY MCH 32.0 27.5 - [facility] [place] 32.1 pg [facility] MCHC 34.2 32.0 - [facility] 35.7 g/dL [facility] Platelets 148 145 - 357 [facility] x10(3)/[facility] RDWSD 44.0 36.0 - [facility] [place] 45.0 [facility] LABORATORY RDWCV 13.0 11.4 - [facility] 13.8 % [facility] MPV 10.7 7.6 - 12.9 [facility] LABORATORY nRBC % Auto 0.0 % [facility] nRBC Abs Auto 0.000 0.000 - [facility] 0.000 [facility] x10(3)/[facility] LABORATORY Specimen Anatomical Collection Method Collection Time Receive d Time (Source) Location / / Volume Laterality Blood 01/29/2022 2:55 AM 2 3:06 EDT AM EDT Resulting Agency Comment Spec In Lab Gemma B Pentland INSULATION WORKER HEMATOLOGY ORDERABLES Performing Organization Address City/[facility]/ZIP Code Phon e Number [address] (ABNORMAL) CK (01/29/2022 2:55 AM EDT) athologist [facility] CK, Total 7,723 (H) 0 - 200 [facility] unit/L [facility] Comment: result rechecked-KS Specimen Anatomical Collection Method Collection Time Receive d Time (Source) Location / / Volume Laterality Blood 01/29/2022 2:55 AM 2 3:06 EDT AM EDT Resulting Agency Comment Spec In Lab Gemma B Pentland INSULATION WORKER CHEMISTRY ORDERABLES Performing Organization Address City/[facility]/ZIP Code Phon e Number [address] (ABNORMAL) Basic Metabolic Panel (non-fasting) (01/29/2022 2:55 AM EDT) athologist Signature Glucose Lvl 124 65 - 199 [facility] mg/dL [facility] Comment: Diabetes: >=200 mg/dL plus symp toms BUN 34 (H) 10 - 20 mg/dL [facility] Comment: result rechecked-KS Creatinine 3.22 (H) 0.80 - 1.50 mg/dL [facility] Comment: result rechecked-KS Sodium 130 (L) 135 - 145 mmol/L [facility] Potassium 4.8 3.5 - 5.0 mmol/L [facility] Comment: Please note: ??Patients with WBC >100,00 0 may have falsely elevated Potassium levels. ??For accurate Potassium quantif ication in these patients send serum separator tube (gold top) for subsequent determinations. ??Contact the Clinical Chemistry Laboratory if there are any qu estions. Chloride 98 98 - 107 mmol/L [facility] CO2 24 22 - 31 mmol/L [facility] Anion Gap 8 5 - 15 mmol/L [facility] Calcium 7.6 (L) 8.5 - 10.5 mg/dL [facility] Estimated GFR 26 (L) >=60 mL/min/1.73 m?? [facility] Comment: This patient's estimated [...] Han DO CHEMISTRY ORDERABLES Performing Organization Address City/[facility]/ZIP [place] [address] Phosphorus (01/29/2022 2:55 AM EDT) P athologist Signature Phosphorus 3.2 2.5 - 4.5 [facility] mg/dL [facility] Specimen Anatomical Collection Method Collection Time Receive d Time (Source) Location / / Volume Laterality Blood 01/29/2022 2:55 AM 2 3:06 EDT AM EDT Resulting Agency Comment Spec In Lab Gela Novak MD CHEMISTRY ORDERABLES Performing Organization Address City/[facility]/ZIP [place] [address] [facility] [address] Drive Magnesium (01/29/2022 2:55 AM EDT) P athologist Signature Magnesium 0.85 0.69 - 1.07 [facility] mmol/L [facility] Specimen Anatomical Collection Method Collection Time Receive d Time (Source) Location / / Volume Laterality Blood 01/29/2022 2:55 AM 3:06 EDT AM EDT Resulting Agency Comment Spec In Lab Gela Novak MD CHEMISTRY ORDERABLES Performing Organization Address City/State/ZIP [place] [address] [facility] LABORATORY Drive (ABNORMAL) Blood Gas Venous (NL[facility]) (01/28/2022 1:25 PM EDT) Analysis Performed At Patho logist Time Signature pH Honorio 7.40 7.32 - [facility] 7.42 [facility] pCO2 Honorio 44 41 - 51 [facility] LABORATORY pO2 Honorio 37 25 - 40 [facility] LABORATORY HCO3 [place] 26.5 mmol/L [facility] BE [place] 1.6 mmol/L [facility] Hgb Blood Gas 12.1 (L) 13.7 - [facility] 16.5 g/dL [facility] O2HB [place] 71.4 % [facility] COHB [place] 0.7 % [facility] Comment: Nonsmokers: 0.5-1.5% COHB Smokers: Variable, but usually less than 10% Toxic: 20-30% COHB Lethal: Greater than 60% COHB METHB [place]io 0.1 <=1.5 % [facility] Na Whole Blood 130 (L) 135 - 145 mmol/L [facility] K Whole Blood 4.6 3.5 - 5.0 mmol/L [facility] Comment: Please note: Patients with WBC >100,000 may have falsely elevated Potassium levels. Contact the Clinical Chemistry L aboratory if there are any questions. ICa Whole Blood 1.16 1.15 - 1.33 mmol/L [facility] Comment: Note: ??Total bilirubin higher than 20 m g/dL may lead to falsely low ionized calcium. CL Whole Blood 103 98 - 107 mmol/L [facility] Gluc Whole Bld 130 65 - 199 mg/dL [facility] Comment: Diabetes: >=200 mg/dL plus symp toms Lactate WB 1.0 0.5 - 2.2 mmol/L [facility] BGas Source Venous [facility] Temp Honorio 37.3 Celsius [facility] Specimen Anatomical Collection Method Collection Time Receive d Time (Source) Location / / Volume Laterality Blood Venous Draw / 01/28/2022 1:25 PM 01/29/20 1:36 Unknown EDT PM EDT Resulting Agency Comment Spec In Lab Angelina Reynoso MD CHEMISTRY ORDERABLES Performing Organization Address City/State/ZIP [place] [address] (ABNORMAL) Blood Gas Venous ([facility]) (01/28/2022 6:20 AM EDT) Analysis Performed At Patho logist Time Signature pH Honor[place] 7.41 7.32 - [facility] 7.42 [facility] pCO2 Honorio 42 41 - 51 [facility] LABORATORY pO2 Honorio 30 25 - 40 [facility] LABORATORY HCO3 Honor[place] 26.3 mmol/L [facility] BE [place] 1.7 mmol/L [facility] Hgb Blood Gas 12.4 (L) 13.7 - [facility] 16.5 g/dL [facility] O2HB [place] 64.2 % [facility] COHB [place] 0.8 % [facility] Comment: Nonsmokers: 0.5-1.5% COHB Smokers: Variable, but usually less than 10% Toxic: 20-30% COHB Lethal: Greater than 60% COHB METHB [place] 0.3 <=1.5 % [facility] Na Whole Blood 130 (L) 135 - 145 mmol/L [facility] K Whole Blood 4.8 3.5 - 5.0 mmol/L [facility] Comment: Please note: Patients with WBC >100,000 may have falsely elevated Potassium levels. Contact the Clinical Chemistry L aboratory if there are any questions. ICa Whole Blood 1.17 1.15 - 1.33 mmol/L [facility] Comment: Note: ??Total bilirubin higher than 20 m g/dL may lead to falsely low ionized calcium. CL Whole Blood 103 98 - 107 mmol/L [facility] Gluc Whole Bld 112 65 - 199 mg/dL [facility] Comment: Diabetes: >=200 mg/dL plus symp toms Lactate WB 1.1 0.5 - 2.2 mmol/L [facility] FIO2 Honorio 21 % [facility] BGas Source Venous [facility] Specimen Anatomical Collection Method Collection Time Receive d Time (Source) Location / / Volume Laterality Blood Venous Draw / 01/28/2022 6:20 AM 01/29/20 22 6:28 Unknown EDT AM EDT Resulting Agency Comment Spec In Lab Angelina Reynoso MD CHEMISTRY ORDERABLES Performing Organization Address City/State/ZIP Code Phon e Number [address] (ABNORMAL) CK (01/28/2022 6:20 AM EDT) P athologist Signature CK, Total 11,287 (H) 0 - 200 [facility] unit/L [facility] Specimen Anatomical Collection Method Collection Time Receive d Time (Source) Location / / Volume Laterality Blood 01/28/2022 6:20 AM 2 6:27 EDT AM EDT Resulting Agency Comment Spec In Lab Cristina Hillman APRN CHEMISTRY ORDERABLES Performing Organization Address City/[facility]/ZIP Code Phon e Number [address] (ABNORMAL) _Urinalysis with microscopic (01/28/2022 6:00 AM EDT) Patholo gist Method Time Signature Glucose UA 100 (A) Negative [facility]/dL [facility] Protein UA >=300 (A) Negative [facility] Bilirubin UA Negative Negative [facility] mg/dL [facility] Comment: Clinical correlation required for positi ve Urine Bilirubin results as false positive may occur with some drugs and d rug related products. If a false positive is suspected a serum total bili villaseñor should be considered if clinically indicated. Urobilinogen UA Normal Normal mg/dL [facility] pH UA 7.5 5.0 - 8.0 [facility] Blood UA Large (A) Negative mg/dL [facility] Ketones UA Negative Negative mg/dL [facility] Nitrite UA Negative Negative [facility] Leukocytes UA Negative Negative [facility] LABORATORY Appearance UA Clear Clear [facility]ORATORY Spec [place] UA 1.025 1.006 - 1.030 [facility] LAB[facility]ORY Color UA Yellow [facility] RBC UA 4 (H) 0 - 3 /HPF [facility] WBC UA 1 0 - 3 /HPF [facility] Bacteria UA Rare (A) None /HPF [facility] Specimen Anatomical Collection Method Collection Time Receive d Time (Source) Location / / Volume Laterality Urine 01/28/2022 6:00 AM 2 6:40 EDT AM EDT Resulting Agency Comment Spec In Lab Beck Sanz MD URINE ORDERABLES Performing Organization Address City/State/ZIP [place] [address] Blood culture (01/28/2022 3:45 AM EDT) [facility] gist Method Time Signature Blood Culture No growth [facility] at 5 days. [facility] Specimen Anatomical Collection Method Collection Time Receive d Time (Source) Location / / Volume Laterality Blood 01/28/2022 3:45 AM 2 5:37 EDT AM EDT Resulting Agency Comment Spec In Lab Beck Sanz MD MICROBIOLOGY - BLOOD ORDERAB LES Performing Organization Address City/State/ZIP Code Phon e Number [address] Scan, Peripheral Blood (01/28/2022 12:18 AM EDT) Patholo gist Method Time Signature Plat Estimate Decreased [facility] RBC Morphology Normal [facility] Specimen Anatomical Collection Method Collection Time Receive d Time (Source) Location / / Volume Laterality Blood 01/28/2022 12:18 01/28/2022 AM EDT 12:24 AM EDT Resulting Agency Comment Spec In Lab Cristina Hillman APRN HEMATOLOGY ORDERABLES Performing Organization Address City/[facility]/[place] [address] (ABNORMAL) Blood Gas Venous ([facility]) (01/28/2022 12:18 AM EDT) Analysis Performed At Patho logist Time Signature pH [place] 7.39 7.32 - [facility] 7.42 [facility] pCO2 Honorio 44 41 - 51 [facility] LABORATORY pO2 Honorio 34 25 - 40 [facility] LABORATORY HCO3 [place] 25.9 mmol/L [facility] BE [place] 1.0 mmol/L [facility] Hgb Blood Gas 12.8 (L) 13.7 - [facility] 16.5 g/dL [facility] O2HB [place] 68.7 % [facility] COHB [place] 0.6 % [facility] Comment: Nonsmokers: 0.5-1.5% COHB Smokers: Variable, but usually less than 10% Toxic: 20-30% COHB Lethal: Greater than 60% COHB METHB [place] 0.3 <=1.5 % [facility] Na Whole Blood 130 (L) 135 - 145 mmol/L [facility] K Whole Blood 4.4 3.5 - 5.0 mmol/L [facility] Comment: Please note: Patients with WBC >100,000 may have falsely elevated Potassium levels. Contact the Clinical Chemistry L aboratory if there are any questions. ICa Whole Blood 1.14 (L) 1.15 - 1.33 mmol/L [facility] Comment: Note: ??Total bilirubin higher than 20 m g/dL may lead to falsely low ionized calcium. CL Whole Blood 102 98 - 107 mmol/L [facility] Gluc Whole Bld 120 65 - 199 mg/dL [facility] Comment: Diabetes: >=200 mg/dL plus symp toms Lactate WB 1.0 0.5 - 2.2 mmol/L [facility] FIO2 Honorio 21 % [facility] BGas Source Venous [facility] Specimen Anatomical Collection Method Collection Time Receive d Time (Source) Location / / Volume Laterality Blood Venous Draw / 01/28/2022 12:18 01/28/2022 Unknown AM EDT 12:25 AM EDT Resulting Agency Comment Spec In Lab Angelina Reynoso MD CHEMISTRY ORDERABLES Performing Organization Address City/State/[place] [address] (ABNORMAL) Differential, Automated (01/28/2022 12:18 AM EDT) [facility] gist Method Time Signature Neutrophils % 56.1 % [facility] Neutr Abs (ANC) 13.41 (H) 1.70 - [facility] 6.10 [facility] x10(3)/[facility] LABORATORY Lymphocytes % 7.3 % [facility] Lymphocytes Abs 1.7 0.9 - 3.2 [facility] x10(3)/[facility] LABORATORY Monocytes % 6.7 % [facility] Monocyte Abs 1.6 (H) 0.3 - 0.9 [facility] x10(3)/[facility] LABORATORY Eosinophils % 1.0 % [facility] Eosinophils Abs 0.2 0.0 - 0.4 [facility] x10(3)[facility] LABORATORY Basophils % 0.1 % [facility] Basophils Abs 0.0 0.0 - 0.1 [facility] x10(3)/[facility] LABORATORY Immature Gran % 28.80 % [facility] Comment: Immature granulocytes(IG's)percentage an d absolute count will include metamyelocytes, myelocytes, and promyelo cytes. Blood smears from CBCs yielding IG's will be scanned manually for concor dance. If this scan disagrees with the automated IG or if promyelocytes are not ed, a manual differential will be performed. Gemini Gran Abs 6.87 (H) 0.00 - 0.04 x10(3)/[facility] LABORATORY Specimen Anatomical Collection Method Collection Time Receive d Time (Source) Location / / Volume Laterality Blood 01/28/2022 12:18 01/28/2022 AM EDT 12:24 AM EDT Resulting Agency Comment Spec In Lab Cristina Hillman APRN HEMATOLOGY ORDERABLES Performing Organization Address City/State/ZIP Code Phon e Number [place] [id number] HOSPITAL LABORATORY Drive (ABNORMAL) Hemogram (01/28/2022 12:18 AM EDT) Analysis Performed At Patho logist Time Signature WBC 23.9 (H) 4.0 - 9.5 [facility] x10(3)/[facility] LABORATORY RBC 3.63 (L) 4.58 - [facility] 5.54 [facility] x10(6)/[facility] LABORATORY Hemoglobin 11.9 (L) 13.7 - [facility] 16.5 g/dL [facility] Hematocrit 34.7 (L) 40.5 - [facility] 48.5 % [facility] MCV 95.6 (H) 82.9 - [facility] 93.1 [facility] LABORATORY MCH 32.8 (H) 27.5 - [facility] 32.1 pg [facility] MCHC 34.3 32.0 - [facility] 35.7 g/dL [facility] Platelets 106 (L) 145 - 357 [facility] x10(3)/[facility] RDWSD 43.9 36.0 - [facility] 45.0 [facility] RDWCV 12.8 11.4 - [facility] 13.8 % [facility] MPV 10.5 7.6 - 12.9 [facility] fL [facility]ORY nRBC % Auto 0.0 % [facility] nRBC Abs Auto 0.000 0.000 - [place] [place] 0.000 [facility] x10(3)/[facility] LABORATORY Specimen Anatomical Collection Method Collection Time Receive d Time (Source) Location / / Volume Laterality Blood 01/28/2022 12:18 01/28/2022 AM EDT 12:24 AM EDT Resulting Agency Comment Spec In Lab Gemma B Pentland INSULATION WORKER HEMATOLOGY ORDERABLES Performing Organization Address City/State/ZIP Code Phon e Number [address] (ABNORMAL) Hepatic Function Panel (01/28/2022 12:18 AM EDT) P athologist Signature Total Protein 4.5 (L) 6.1 - 8.0 [facility] g/dL [facility] Albumin 2.0 (L) 3.2 - 5.2 [facility] g/dL [facility] AST 418 (H) 0 - 39 [facility]L [facility] ALT 237 (H) 0 - 55 [facility] unit/L [facility] Alk Phos 88 40 - 130 [facility] unit/L [facility] Total 0.4 0.2 - 1.3 [facility] Bilirubin mg/dL [facility] Bili, Direct 0.3 0.0 - 0.3 [facility] mg/dL [facility] Specimen Anatomical Collection Method Collection Time Receive d Time (Source) Location / / Volume Laterality Blood 01/28/2022 12:18 01/28/2022 AM EDT 12:24 AM EDT Resulting Agency Comment Spec In Lab Gemma B Pentland INSULATION WORKER CHEMISTRY ORDERABLES Performing Organization Address City/[facility]/[place] [address] (ABNORMAL) Basic Metabolic Panel (non-fasting) (01/28/2022 12:18 AM EDT) P athologist Signature Glucose Lvl 118 65 - 199 [facility] [place] mg/dL [facility] Comment: Diabetes: >=200 mg/dL plus symp toms BUN 20 10 - 20 mg/dL [facility] Creatinine 2.03 (H) 0.80 - 1.50 mg/dL [facility] Sodium 136 135 - 145 mmol/L [facility] Potassium 4.6 3.5 - 5.0 mmol/L [facility] Comment: Please note: ??Patients with WBC >100,00 0 may have falsely elevated Potassium levels. ??For accurate Potassium quantif ication in these patients send serum separator tube (gold top) for subsequent determinations. ??Contact the Clinical Chemistry Laboratory if there are any qu estions. Chloride 102 98 - 107 mmol/L [facility] CO2 25 22 - 31 mmol/L [facility] Anion Gap 9 5 - 15 mmol/L [facility] Calcium 7.9 (L) 8.5 - 10.5 mg/dL [facility] Estimated GFR 44 (L) >=60 mL/min/1.73 m?? [facility] Comment: This patient's estimated [...] Organization Address City/State/ZIP [place] [address] Phosphorus (01/28/2022 12:18 AM EDT) athologist Signature Phosphorus 2.5 2.5 - 4.5 [facility] [place] mg/dL [facility] Specimen Anatomical Collection Method Collection Time Receive d Time (Source) Location / / Volume Laterality Blood 01/28/2022 12:18 01/28/2022 AM EDT 12:24 AM EDT Resulting Agency Comment Spec In Lab Gela Novak MD CHEMISTRY ORDERABLES Performing Organization Address City/State/ZIP Code Phon e Number [address] Magnesium (01/28/2022 12:18 AM EDT) athologist Signature Magnesium 0.81 0.69 - 1.07 [facility] mmol/L [facility] Specimen Anatomical Collection Method Collection Time Receive d Time (Source) Location / / Volume Laterality Blood 01/28/2022 12:18 01/28/2022 AM EDT 12:24 AM EDT Resulting Agency Comment Spec In Lab Gela Novak MD CHEMISTRY ORDERABLES Performing Organization Address City/State/ZIP Code Phon e Number [address] (ABNORMAL) CK (01/28/2022 12:18 AM EDT) athologist [facility] CK, Total 14,277 (H) 0 - 200 [facility] unit/L [facility] Specimen Anatomical Collection Method Collection Time Receive d Time (Source) Location / / Volume Laterality Blood 01/28/2022 12:18 01/28/2022 AM EDT 12:24 AM EDT Resulting Agency Comment Spec In Lab Cristina Hillman APRN CHEMISTRY ORDERABLES Performing Organization Address City/State/ZIP Code Phon e Number [address] POCT Glucose (01/27/2022 8:29 PM EDT) athologist [facility] POC Glucose 104 65 - 199 [facility] mg/dL [facility] Comment: Supplemental ranges: <140 mg/dL before meals <180 mg/dL all other times of the day Specimen Anatomical Collection Method Collection Time Receive d Time (Source) Location / / Volume Laterality Blood 01/27/2022 8:29 PM 8:29 EDT PM EDT Beck Sanz MD POINT OF CARE TEST ORDERABLE S Performing Organization Address City/State/ZIP [place] [address] (ABNORMAL) Blood Gas Venous ([facility]) (01/27/2022 6:06 PM EDT) Analysis Performed At Patho logist Time Signature pH Honorio 7.42 7.32 - [facility] 7.42 [facility] LABORATORY pCO2 Honorio 42 41 - 51 [facility] LABORATORY pO2 Honorio 35 25 - 40 [facility] LABORATORY HCO3 Honorio 26.5 mmol/L [facility] BE Honorio 2.0 mmol/L [facility] Hgb Blood Gas 11.9 (L) 13.7 - [facility] 16.5 g/dL [facility] O2HB Honorio 72.0 % [facility] COHB Honorio 0.8 % [facility] Comment: Nonsmokers: 0.5-1.5% COHB Smokers: Variable, but usually less than 10% Toxic: 20-30% COHB Lethal: Greater than 60% COHB METHB Honorio 0.2 <=1.5 % [facility] Na Whole Blood 130 (L) 135 - 145 mmol/L [facility] K Whole Blood 4.3 3.5 - 5.0 mmol/L [facility] Comment: Please note: Patients with WBC >100,000 may have falsely elevated Potassium levels. Contact the Clinical Chemistry L aboratory if there are any questions. ICa Whole Blood 1.14 (L) 1.15 - 1.33 mmol/L [facility] Comment: Note: ??Total bilirubin higher than 20 m g/dL may lead to falsely low ionized calcium. CL Whole Blood 103 98 - 107 mmol/L [facility] Gluc Whole Bld 142 65 - 199 mg/dL [facility] Comment: Diabetes: >=200 mg/dL plus symp toms Lactate WB 1.2 0.5 - 2.2 mmol/L [facility] BGas Source Venous [facility] Specimen Anatomical Collection Method Collection Time Receive d Time (Source) Location / / Volume Laterality Blood Venous Draw / 01/27/2022 6:06 PM 01/28/20 6:06 Unknown EDT PM EDT Resulting Agency Comment Spec In Lab Angelina Reynoso MD CHEMISTRY ORDERABLES Performing Organization Address City/State/ZIP Code Phon e Number [address] (ABNORMAL) CK (01/27/2022 5:55 PM EDT) athologist [facility] CK, Total 15,910 (H) 0 - 200 [facility] unit/[facility] Specimen Anatomical Collection Method Collection Time Receive d Time (Source) Location / / Volume Laterality Blood 01/27/2022 5:55 PM 2 6:05 EDT PM EDT Resulting Agency Comment Spec In Lab Cristina Hillman APRN CHEMISTRY ORDERABLES Performing Organization Address City/[facility]/[place] [address] POCT Glucose (01/27/2022 4:28 PM EDT) athologist Signature POC Glucose 99 65 - 199 [facility]dL [facility] Comment: Supplemental ranges: <140 mg/dL before meals <180 mg/dL all other times of the day Specimen Anatomical Collection Method Collection Time Receive d Time (Source) Location / / Volume Laterality Blood 01/27/2022 4:28 PM 2 4:28 EDT PM EDT Beck Sanz MD POINT OF CARE TEST ORDERABLE S Performing Organization Address City/State/[place] [address] POCT Glucose (01/27/2022 12:13 PM EDT) athologist Signature POC Glucose 108 65 - 199 [facility] mg/dL [facility] Comment: Supplemental ranges: <140 mg/dL before meals <180 mg/dL all other times of the day Specimen Anatomical Collection Method Collection Time Receive d Time (Source) Location / / Volume Laterality Blood 01/27/2022 12:13 01/27/2022 PM EDT 12:13 PM EDT Beck Sanz MD POINT OF CARE TEST ORDERABLE S Performing Organization Address City/State/ZIP [place] [address] (ABNORMAL) BLOOD GAS 2 VENOUS (01/27/2022 12:11 PM EDT) Analysis Performed At Patho logist Time Signature pH Honorio 7.41 7.32 - [facility] 7.42 [facility] pCO2 Honorio 42 41 - 51 [facility] LABORATORY pO2 Honorio 34 25 - 40 [facility] LABORATORY HCO3 Honorio 25.7 mmol/L [facility] BE Honorio 1.1 mmol/L [facility] Hgb Blood Gas 13.1 (L) 13.7 - [facility] 16.5 g/dL [facility] O2HB Honorio 70.3 % [facility] COHB Honorio 1.0 % [facility] Comment: Nonsmokers: 0.5-1.5% COHB Smokers: Variable, but usually less than 10% Toxic: 20-30% COHB Lethal: Greater than 60% COHB METHB Honorio 0.2 <=1.5 % [facility] Na Whole Blood 130 (L) 135 - 145 mmol/L [facility] K Whole Blood 4.3 3.5 - 5.0 mmol/L [facility] Comment: Please note: Patients with WBC >100,000 may have falsely elevated Potassium levels. Contact the Clinical Chemistry L aboratory if there are any questions. ICa Whole Blood 1.13 (L) 1.15 - 1.33 mmol/L [facility] Comment: Note: ??Total bilirubin higher than 20 m g/dL may lead to falsely low ionized calcium. CL Whole Blood 102 98 - 107 mmol/L [facility] Gluc Whole Bld 127 65 - 199 mg/dL [facility] Comment: Diabetes: >=200 mg/dL plus symp toms Lactate WB 1.1 0.5 - 2.2 mmol/L [facility] FIO2 Honorio 21 % [facility] BGas Source Venous [facility] Specimen Anatomical Collection Method Collection Time Receive d Time (Source) Location / / Volume Laterality Blood 01/27/2022 12:11 01/27/2022 PM EDT 12:11 PM EDT Beck Sanz MD CHEMISTRY ORDERABLES Performing Organization Address City/[facility]/ZIP Code Phon e Number [address] (ABNORMAL) Creatinine (01/27/2022 12:05 PM EDT) Analysis Performed At Patho logist Time Signature Creatinine 2.06 (H) 0.80 - [facility] 1.50 mg/dL [facility] Estimated GFR 44 (L) >=60 [facility] mL/min/1.7 [facility] 3 [facility] LABORATORY Comment: This [...] Organization Address City/State/ZIP Code Phon e Number [address] Scan, Peripheral Blood (01/27/2022 10:22 AM EDT) [facility] Method Time Signature Plat Estimate Decreased [facility] RBC Morphology Normal [facility] Specimen Anatomical Collection Method Collection Time Receive d Time (Source) Location / / Volume Laterality Blood 01/27/2022 10:22 01/27/2022 AM EDT 10:38 AM EDT Resulting Agency Comment Spec In Lab Cristina Hillman APRN HEMATOLOGY ORDERABLES Performing Organization Address City/State/ZIP [place] [address] (ABNORMAL) Differential, Automated (01/27/2022 10:22 AM EDT) [facility] [employer] Method Time Signature Neutrophils % 61.9 % [facility] Neutr Abs (ANC) 11.72 (H) 1.70 - [facility] 6.10 [facility] x10(3)/[facility] LABORATORY Lymphocytes % 7.8 % [facility] Lymphocytes Abs 1.5 0.9 - 3.2 [facility] x10(3)/[facility] LABORATORY Monocytes % 5.6 % [facility] Monocyte Abs 1.1 (H) 0.3 - 0.9 [facility] x10(3)/[facility] LABORATORY Eosinophils % 1.1 % [facility] Eosinophils Abs 0.2 0.0 - 0.4 [facility] x10(3)/[facility] LABORATORY Basophils % 0.1 % [facility] Basophils Abs 0.0 0.0 - 0.1 [facility] x10(3)/[facility] LABORATORY Immature Gran % 23.50 % [facility] Comment: Immature granulocytes(IG's)percentage an d absolute count will include metamyelocytes, myelocytes, and promyelo cytes. Blood smears from CBCs yielding IG's will be scanned manually for concor dance. If this scan disagrees with the automated IG or if promyelocytes are not ed, a manual differential will be performed. Gemini Gran Abs 4.45 (H) 0.00 - 0.04 x10(3)/[facility] LABORATORY Specimen Anatomical Collection Method Collection Time Receive d Time (Source) Location / / Volume Laterality Blood 01/27/2022 10:22 01/27/2022 AM EDT 10:38 AM EDT Resulting Agency Comment Spec In Lab Gemma B Pentland INSULATION WORKER HEMATOLOGY ORDERABLES Performing Organization Address City/State/ZIP [place] [address] (ABNORMAL) Hemogram (01/27/2022 10:22 AM EDT) [facility] gist Method Time Signature WBC 18.9 (H) 4.0 - 9.5 [facility] x10(3)/[facility] LABORATORY RBC 3.61 (L) 4.58 - [facility] 5.54 [facility] x10(6)/[facility] LABORATORY Hemoglobin 11.6 (L) 13.7 - [facility] 16.5 g/dL [facility] Hematocrit 34.2 (L) 40.5 - [facility] 48.5 % [facility] MCV 94.7 (H) 82.9 - [facility] 93.1 [facility] LABORATORY MCH 32.1 27.5 - [facility] 32.1 pg [facility] MCHC 33.9 32.0 - [facility] 35.7 g/dL [facility] Platelets 100 (L) 145 - 357 [facility] x10(3)/[facility] LABORATORY RDWSD 43.3 36.0 - [facility] 45.0 [facility] LABORATORY RDWCV 12.6 11.4 - [facility] MANDO 13.8 % [facility] LABORATORY MPV 10.6 7.6 - 12.9 [facility] LABORATORY nRBC % Auto 0.1 % [facility] nRBC Abs Auto 0.020 (H) 0.000 - [facility] MANDO 0.000 [facility] x10(3)/[facility] LABORATORY Specimen Anatomical Collection Method Collection Time Receive d Time (Source) Location / / Volume Laterality Blood 01/27/2022 10:22 01/27/2022 AM EDT 10:38 AM EDT Resulting Agency Comment Spec In Lab Gemma B Pentland INSULATION WORKER HEMATOLOGY ORDERABLES Performing Organization Address City/State/ZIP Code Phon e Number [address] POCT Glucose (01/27/2022 8:30 AM EDT) athologist Signature POC Glucose 103 65 - 199 [facility] mg/dL [facility] Comment: Supplemental ranges: <140 mg/dL before meals <180 mg/dL all other times of the day Specimen Anatomical Collection Method Collection Time Receive d Time (Source) Location / / Volume Laterality Blood 01/27/2022 8:30 AM 8:30 EDT AM EDT Beck Sanz MD POINT OF CARE TEST ORDERABLE S Performing Organization Address City/State/[place] [address] (ABNORMAL) Blood Gas Venous ([facility]) (01/27/2022 5:36 AM EDT) athologist Signature pH Honorio 7.37 7.32 - [facility] 7.42 [facility] pCO2 Honorio 47 41 - 51 [facility] LABORATORY pO2 Honorio 33 25 - 40 [facility] LABORATORY HCO3 Honorio 26.4 mmol/L [facility] BE Honorio 1.2 mmol/L [facility] Hgb Blood Gas 16.1 13.7 - [facility] 16.5 g/dL [facility] O2HB Honorio 66.2 % [facility] COHB Honorio 1.5 % [facility] Comment: Nonsmokers: 0.5-1.5% COHB Smokers: Variable, but usually less than 10% Toxic: 20-30% COHB Lethal: Greater than 60% COHB METHB Honorio 0.3 <=1.5 % [facility] Na Whole Blood 133 (L) 135 - 145 mmol/L [facility] K Whole Blood 4.4 3.5 - 5.0 mmol/L [facility] Comment: Please note: Patients with WBC >100,000 may have falsely elevated Potassium levels. Contact the Clinical Chemistry L aboratory if there are any questions. ICa Whole Blood 1.14 (L) 1.15 - 1.33 mmol/L [facility] Comment: Note: ??Total bilirubin higher than 20 m g/dL may lead to falsely low ionized calcium. CL Whole Blood 102 98 - 107 mmol/L [facility] Gluc Whole Bld 106 65 - 199 mg/dL [facility] Comment: Diabetes: >=200 mg/dL plus symp toms Lactate WB 1.2 0.5 - 2.2 mmol/L [facility] BGas Source Venous [facility] Specimen Anatomical Collection Method Collection Time Receive d Time (Source) Location / / Volume Laterality Blood Venous Draw / 01/27/2022 5:36 AM 01/28/20 22 5:45 Unknown EDT AM EDT Resulting Agency Comment Spec In Lab Angelina Reynoso MD CHEMISTRY ORDERABLES Performing Organization Address City/State/[place] [address] (ABNORMAL) CK (01/27/2022 5:36 AM EDT) P athologist Signature CK, Total 21,662 (H) 0 - 200 [facility] unit/L [facility] Specimen Anatomical Collection Method Collection Time Receive d Time (Source) Location / / Volume Laterality Blood 01/27/2022 5:36 AM 2 5:43 EDT AM EDT Resulting Agency Comment Spec In Lab Cristina Hilmlan APRN CHEMISTRY ORDERABLES Performing Organization Address City/State/[place] [address] (ABNORMAL) Blood Gas Venous ([facility]) (01/27/2022 1:25 AM EDT) Analysis Performed At Patho logist Time Signature pH Honorio 7.44 (H) 7.32 - [facility] 7.42 [facility] pCO2 Honorio 39 (L) 41 - 51 [facility] LABORATORY pO2 Honorio 36 25 - 40 [facility] LABORATORY HCO3 Honorio 25.9 mmol/L [facility] BE Honorio 1.6 mmol/L [facility] Hgb Blood Gas 11.8 (L) 13.7 - [facility] 16.5 g/dL [facility] O2HB Honorio 73.6 % [facility] COHB Honorio 0.6 % [facility] Comment: Nonsmokers: 0.5-1.5% COHB Smokers: Variable, but usually less than 10% Toxic: 20-30% COHB Lethal: Greater than 60% COHB METHB Honorio 0.0 <=1.5 % [facility] Na Whole Blood 132 (L) 135 - 145 mmol/L [facility] K Whole Blood 4.3 3.5 - 5.0 mmol/L [facility] Comment: Please note: Patients with WBC >100,000 may have falsely elevated Potassium levels. Contact the Clinical Chemistry L aboratory if there are any questions. ICa Whole Blood 1.11 (L) 1.15 - 1.33 mmol/L [facility] Comment: Note: ??Total bilirubin higher than 20 m g/dL may lead to falsely low ionized calcium. CL Whole Blood 104 98 - 107 mmol/L [facility] Gluc Whole Bld 108 65 - 199 mg/dL [facility] Comment: Diabetes: >=200 mg/dL plus symp toms Lactate WB 1.6 0.5 - 2.2 mmol/L [facility] BGas Source Venous [facility] Specimen Anatomical Collection Method Collection Time Receive d Time (Source) Location / / Volume Laterality Blood Venous Draw / 01/27/2022 1:25 AM 01/28/20 1:31 Unknown EDT AM EDT Resulting Agency Comment Spec In Lab Angelina Reynoso MD CHEMISTRY ORDERABLES Performing Organization Address City/State/ZIP [place] [address] (ABNORMAL) CK (01/27/2022 1:25 AM EDT) athologist Signature CK, Total 22,236 (H) 0 - 200 [facility] unit/L [facility] Specimen Anatomical Collection Method Collection Time Receive d Time (Source) Location / / Volume Laterality Blood 01/27/2022 1:25 AM 2 1:30 EDT AM EDT Resulting Agency Comment Spec In Lab Gemma B Pentland INSULATION WORKER CHEMISTRY ORDERABLES Performing Organization Address City/[facility]/[place] [address] (ABNORMAL) Hepatic Function Panel (01/27/2022 1:25 AM EDT) athologist Signature Total Protein 4.3 (L) 6.1 - 8.0 [facility] M[facility] g/dL [facility] Albumin 2.1 (L) 3.2 - 5.2 [facility] MANDO g/dL [facility] AST 618 (H) 0 - 39 [facility] MANDO unit/L [facility] ALT 418 (H) 0 - 55 [facility] unit/L [facility] Alk Phos 82 40 - 130 [facility] unit/L [facility] Total 0.9 0.2 - 1.3 [facility] Bilirubin mg/dL [facility] Bili, Direct 0.8 (H) 0.0 - 0.3 [facility] MANDO mg/dL [facility] Specimen Anatomical Collection Method Collection Time Receive d Time (Source) Location / / Volume Laterality Blood 01/27/2022 1:25 AM 2 1:30 EDT AM EDT Resulting Agency Comment Spec In Lab Gemma B Pentland INSULATION WORKER CHEMISTRY ORDERABLES Performing Organization Address City/[facility]/[place] [address] (ABNORMAL) Basic Metabolic Panel (non-fasting) (01/27/2022 1:25 AM EDT) athologist Signature Glucose Lvl 112 65 - 199 [facility] mg/dL [facility] Comment: Diabetes: >=200 mg/dL plus symp toms BUN 21 (H) 10 - 20 mg/dL [facility] Creatinine 2.12 (H) 0.80 - 1.50 mg/dL [facility] Sodium 135 135 - 145 mmol/L [facility] Potassium 4.4 3.5 - 5.0 mmol/L [facility] Comment: Please note: ??Patients with WBC >100,00 0 may have falsely elevated Potassium levels. ??For accurate Potassium quantif ication in these patients send serum separator tube (gold top) for subsequent determinations. ??Contact the Clinical Chemistry Laboratory if there are any qu estions. Chloride 104 98 - 107 mmol/L [facility] CO2 25 22 - 31 mmol/L [facility] Anion Gap 6 5 - 15 mmol/L [facility] Calcium 7.7 (L) 8.5 - 10.5 mg/dL [facility] Estimated GFR 42 (L) >=60 mL/min/1.73 m?? [facility] Comment: This patient's estimated [...] Organization Address City/State/ZIP [place] [address] (ABNORMAL) Phosphorus (01/27/2022 1:25 AM EDT) athologist Signature Phosphorus 1.6 (L) 2.5 - 4.5 [facility] mg/dL [facility] Specimen Anatomical Collection Method Collection Time Receive d Time (Source) Location / / Volume Laterality Blood 01/27/2022 1:25 AM 2 1:30 EDT AM EDT Resulting Agency Comment Spec In Lab Gela Novak MD CHEMISTRY ORDERABLES Performing Organization Address City/[facility]/ZIP Code Phon e Number [address] Magnesium (01/27/2022 1:25 AM EDT) P athologist Signature Magnesium 0.72 0.69 - 1.07 [facility] mmol/L [facility] Specimen Anatomical Collection Method Collection Time Receive d Time (Source) Location / / Volume Laterality Blood 01/27/2022 1:25 AM 2 1:30 EDT AM EDT Resulting Agency Comment Spec In Lab Gela Novak MD CHEMISTRY ORDERABLES Performing Organization Address City/[facility]/ZIP Code Phon e Number [address] POCT Glucose (01/26/2022 8:59 PM EDT) P athologist Signature POC Glucose 83 65 - 199 [facility] mg/dL [facility] Comment: Supplemental ranges: <140 mg/dL before meals <180 mg/dL all other times of the day Specimen Anatomical Collection Method Collection Time Receive d Time (Source) Location / / Volume Laterality Blood 01/26/2022 8:59 PM 2 8:59 EDT PM EDT Beck Sanz MD POINT OF CARE TEST ORDERABLE S Performing Organization Address City/State/[place] [address] (ABNORMAL) Blood Gas Venous ([facility]) (01/26/2022 6:19 PM EDT) Analysis Performed At Patho logist Time Signature pH Honorio 7.34 7.32 - [facility] 7.42 [facility] pCO2 Honorio 48 41 - 51 [facility] LABORATORY pO2 Honorio 32 25 - 40 [facility] LABORATORY HCO3 Honorio 25.4 mmol/L [facility] BE Honorio -0.3 mmol/L [facility] Hgb Blood Gas 12.0 (L) 13.7 - [facility] 16.5 g/dL [facility] O2HB Honorio 59.2 % [facility] COHB Honorio 1.1 % [facility] Comment: Nonsmokers: 0.5-1.5% COHB Smokers: Variable, but usually less than 10% Toxic: 20-30% COHB Lethal: Greater than 60% COHB METHB Honorio 0.3 <=1.5 % [facility] Na Whole Blood 131 (L) 135 - 145 mmol/L [facility] K Whole Blood 4.1 3.5 - 5.0 mmol/L [facility] Comment: Please note: Patients with WBC >100,000 may have falsely elevated Potassium levels. Contact the Clinical Chemistry L aboratory if there are any questions. ICa Whole Blood 1.12 (L) 1.15 - 1.33 mmol/L [facility] Comment: Note: ??Total bilirubin higher than 20 m g/dL may lead to falsely low ionized calcium. CL Whole Blood 104 98 - 107 mmol/L [facility] Gluc Whole Bld 127 65 - 199 mg/dL [facility] Comment: Diabetes: >=200 mg/dL plus symp toms Lactate WB 1.5 0.5 - 2.2 mmol/L [facility] BGas Source Venous [facility] Specimen Anatomical Collection Method Collection Time Receive d Time (Source) Location / / Volume Laterality Blood Venous Draw / 01/26/2022 6:19 PM 01/27/20 6:32 Unknown EDT PM EDT Resulting Agency Comment Spec In Lab Angelina Reynoso MD CHEMISTRY ORDERABLES Performing Organization Address City/State/ZIP [place] [address] (ABNORMAL) CK (01/26/2022 6:19 PM EDT) P athologist Signature CK, Total 21,834 (H) 0 - 200 [facility] unit/L [facility] Specimen Anatomical Collection Method Collection Time Receive d Time (Source) Location / / Volume Laterality Blood 01/26/2022 6:19 PM 2 6:31 EDT PM EDT Resulting Agency Comment Spec In Lab Cristina Hillman INSULATION WORKER CHEMISTRY ORDERABLES Performing Organization Address City/State/[place] [address] POCT Glucose (01/26/2022 6:03 PM EDT) athologist Signature POC Glucose 108 65 - 199 [facility] mg/dL [facility] Comment: Supplemental ranges: <140 mg/dL before meals <180 mg/dL all other times of the day Specimen Anatomical Collection Method Collection Time Receive d Time (Source) Location / / Volume Laterality Blood 01/26/2022 6:03 PM 2 6:03 EDT PM EDT Beck Sanz MD POINT OF CARE TEST ORDERABLE S Performing Organization Address City/State/ZIP Code Phon e Number [address] POCT Glucose (01/26/2022 4:31 PM EDT) athologist Signature POC Glucose 112 65 - 199 [facility] mg/dL [facility] Comment: Supplemental ranges: <140 mg/dL before meals <180 mg/dL all other times of the day Specimen Anatomical Collection Method Collection Time Receive d Time (Source) Location / / Volume Laterality Blood 01/26/2022 4:31 PM 2 4:31 EDT PM EDT Beck Sanz MD POINT OF CARE TEST ORDERABLE S Performing Organization Address City/State/ZIP Code Phon e Number [address] POCT Glucose (01/26/2022 2:00 PM EDT) athologist Signature POC Glucose 89 65 - 199 [facility] mg/dL [facility] Comment: Supplemental ranges: <140 mg/dL before meals <180 mg/dL all other times of the day Specimen Anatomical Collection Method Collection Time Receive d Time (Source) Location / / Volume Laterality Blood 01/26/2022 2:00 PM 2:00 EDT PM EDT Beck Sanz MD POINT OF CARE TEST ORDERABLE S Performing Organization Address City/State/ZIP [place] [address] (ABNORMAL) BLOOD GAS 2 VENOUS (01/26/2022 12:23 PM EDT) Analysis Performed At Patho logist Time Signature pH Honorio 7.42 7.32 - [facility] 7.42 [facility] pCO2 Honorio 40 (L) 41 - 51 [facility] LABORATORY pO2 Honorio 33 25 - 40 [facility] LABORATORY HCO3 Honorio 25.4 mmol/L [facility] BE Honorio 1.0 mmol/L [facility] Hgb Blood Gas 12.1 (L) 13.7 - [facility] 16.5 g/dL [facility] O2HB Honorio 65.4 % [facility] COHB Honorio 0.7 % [facility] Comment: Nonsmokers: 0.5-1.5% COHB Smokers: Variable, but usually less than 10% Toxic: 20-30% COHB Lethal: Greater than 60% COHB METHB Honorio 0.1 <=1.5 % [facility] Na Whole Blood 130 (L) 135 - 145 mmol/L [facility] K Whole Blood 3.8 3.5 - 5.0 mmol/L [facility] Comment: Please note: Patients with WBC >100,000 may have falsely elevated Potassium levels. Contact the Clinical Chemistry L aboratory if there are any questions. ICa Whole Blood 1.16 1.15 - 1.33 mmol/L [facility] Comment: Note: ??Total bilirubin higher than 20 m g/dL may lead to falsely low ionized calcium. CL Whole Blood 102 98 - 107 mmol/L [facility] Gluc Whole Bld 115 65 - 199 mg/dL [facility] Comment: Diabetes: >=200 mg/dL plus symp toms Lactate WB 0.9 0.5 - 2.2 mmol/L [facility] FIO2 Honorio 21 % [facility] BGas Source Central Venous [facility] Specimen Anatomical Collection Method Collection Time Receive d Time (Source) Location / / Volume Laterality Blood 01/26/2022 12:23 01/26/2022 PM EDT 12:23 PM EDT Beck Sanz MD CHEMISTRY ORDERABLES Performing Organization Address City/State/ZIP Code Phon e Number [address] (ABNORMAL) CK (01/26/2022 12:22 PM EDT) athologist Signature CK, Total 25,802 (H) 0 - 200 [facility] unit/L [facility] Specimen Anatomical Collection Method Collection Time Receive d Time (Source) Location / / Volume Laterality Blood 01/26/2022 12:22 01/26/2022 PM EDT 12:29 PM EDT Resulting Agency Comment Spec In Lab Cristina Hillman APRN CHEMISTRY ORDERABLES Performing Organization Address City/[facility]/[place] [address] POCT Glucose (01/26/2022 12:05 PM EDT) athologist Signature POC Glucose 79 65 - 199 [facility] mg/dL [facility] Comment: Supplemental ranges: <140 mg/dL before meals <180 mg/dL all other times of the day Specimen Anatomical Collection Method Collection Time Receive d Time (Source) Location / / Volume Laterality Blood 01/26/2022 12:05 01/26/2022 PM EDT 12:05 PM EDT Beck Sanz MD POINT OF CARE TEST ORDERABLE S Performing Organization Address City/State/[place] [address] POCT Glucose (01/26/2022 11:08 AM EDT) athologist Signature POC Glucose 82 65 - 199 [facility] mg/dL [facility] Comment: Supplemental ranges: <140 mg/dL before meals <180 mg/dL all other times of the day Specimen Anatomical Collection Method Collection Time Receive d Time (Source) Location / / Volume Laterality Blood 01/26/2022 11:08 01/26/2022 AM EDT 11:08 AM EDT Beck Sanz MD POINT OF CARE TEST ORDERABLE S Performing Organization Address City/State/[place] [address] (ABNORMAL) POCT Glucose (01/26/2022 10:15 AM EDT) athologist Signature POC Glucose 59 (L) 65 - 199 [facility] Comment: Supplemental ranges: <140 mg/dL before meals <180 mg/dL all other times of the day Specimen Anatomical Collection Method Collection Time Receive d Time (Source) Location / / Volume Laterality Blood 01/26/2022 10:15 01/26/2022 AM EDT 10:15 AM EDT Beck Sanz MD POINT OF CARE TEST ORDERABLE S Performing Organization Address City/State/[place] [address] POCT Glucose (01/26/2022 8:58 AM EDT) athologist Signature POC Glucose 75 65 - 199 [facility] Comment: Supplemental ranges: <140 mg/dL before meals <180 mg/dL all other times of the day Specimen Anatomical Collection Method Collection Time Receive d Time (Source) Location / / Volume Laterality Blood 01/26/2022 8:58 AM 8:58 EDT AM EDT Beck Sanz MD POINT OF CARE TEST ORDERABLE S Performing Organization Address City/State/[place] [address] (ABNORMAL) POCT Glucose (01/26/2022 8:20 AM EDT) athologist Signature POC Glucose 49 65 - 199 [facility] (Critical) mg/dL [facility] Comment: Supplemental ranges: <140 mg/dL before meals <180 mg/dL all other times of the day Specimen Anatomical Collection Method Collection Time Receive d Time (Source) Location / / Volume Laterality Blood 01/26/2022 8:20 AM 2 8:20 EDT AM EDT Beck Sanz MD POINT OF CARE TEST ORDERABLE S Performing Organization Address City/State/ZIP Code Phon e Number [address] (ABNORMAL) CK (01/26/2022 6:15 AM EDT) athologist Signature CK, Total 27,357 (H) 0 - 200 [facility] unit/L [facility] Specimen Anatomical Collection Method Collection Time Receive d Time (Source) Location / / Volume Laterality Blood 01/26/2022 6:15 AM 2 6:21 EDT AM EDT Resulting Agency Comment Spec In Lab Cristina Hillman APRN CHEMISTRY ORDERABLES Performing Organization Address City/[facility]/[place] [address] (ABNORMAL) BLOOD GAS 2 VENOUS (01/26/2022 5:59 AM EDT) Analysis Performed At Patho logist Time Signature pH Honorio 7.40 7.32 - [facility] 7.42 [facility] pCO2 Honorio 42 41 - 51 [facility] LABORATORY pO2 Honorio 32 25 - 40 [facility] LABORATORY HCO3 Honorio 25.9 mmol/L [facility] BE Honorio 1.1 mmol/L [facility] Hgb Blood Gas 12.5 (L) 13.7 - [facility] 16.5 g/dL [facility] O2HB Honorio 62.3 % [facility] COHB Honorio 0.6 % [facility] Comment: Nonsmokers: 0.5-1.5% COHB Smokers: Variable, but usually less than 10% Toxic: 20-30% COHB Lethal: Greater than 60% COHB METHB Honorio 0.2 <=1.5 % [facility] Na Whole Blood 132 (L) 135 - 145 mmol/L [facility] K Whole Blood 4.0 3.5 - 5.0 mmol/L [facility] Comment: Please note: Patients with WBC >100,000 may have falsely elevated Potassium levels. Contact the Clinical Chemistry L aboratory if there are any questions. ICa Whole Blood 1.18 1.15 - 1.33 mmol/L [facility] Comment: Note: ??Total bilirubin higher than 20 m g/dL may lead to falsely low ionized calcium. CL Whole Blood 103 98 - 107 mmol/L [facility] Gluc Whole Bld 95 65 - 199 mg/dL [facility] Comment: Diabetes: >=200 mg/dL plus symp toms Lactate WB 1.0 0.5 - 2.2 mmol/L [facility] FIO2 Honorio 21 % [facility] BGas Source Venous [facility] Specimen Anatomical Collection Method Collection Time Receive d Time (Source) Location / / Volume Laterality Blood 01/26/2022 5:59 AM 2 5:59 EDT AM EDT Beck Sanz MD CHEMISTRY ORDERABLES Performing Organization Address City/[facility]/[place] [address] POCT Glucose (01/26/2022 5:09 AM EDT) P athologist Signature POC Glucose 103 65 - 199 [facility] mg/dL [facility] Comment: Supplemental ranges: <140 mg/dL before meals <180 mg/dL all other times of the day Specimen Anatomical Collection Method Collection Time Receive d Time (Source) Location / / Volume Laterality Blood 01/26/2022 5:09 AM 2 5:09 EDT AM EDT Beck Sanz MD POINT OF CARE TEST ORDERABLE S Performing Organization Address City/[facility]/ZIP Code Phon e Number [address] (ABNORMAL) POCT Glucose (01/26/2022 4:21 AM EDT) athologist Signature POC Glucose 61 (L) 65 - 199 [facility] mg/dL [facility] Comment: Supplemental ranges: <140 mg/dL before meals <180 mg/dL all other times of the day Specimen Anatomical Collection Method Collection Time Receive d Time (Source) Location / / Volume Laterality Blood 01/26/2022 4:21 AM 2 4:21 EDT AM EDT Beck Sanz MD POINT OF CARE TEST ORDERABLE S Performing Organization Address City/State/ZIP Code Phon e Number [address] (ABNORMAL) BLOOD GAS 2 VENOUS (01/26/2022 12:26 AM EDT) athologist Signature pH Honorio 7.38 7.32 - [facility] 7.42 [facility] pCO2 Honorio 47 41 - 51 [facility] LABORATORY pO2 Honorio 32 25 - 40 [facility] LABORATORY HCO3 Honorio 27.4 mmol/L [facility] BE Honorio 2.3 mmol/L [facility] Hgb Blood Gas 13.7 13.7 - [facility] 16.5 g/dL [facility] O2HB Honorio 60.6 % [facility] COHB Honorio 0.8 % [facility] Comment: Nonsmokers: 0.5-1.5% COHB Smokers: Variable, but usually less than 10% Toxic: 20-30% COHB Lethal: Greater than 60% COHB METHB Honorio 0.0 <=1.5 % [facility] Na Whole Blood 133 (L) 135 - 145 mmol/L [facility] K Whole Blood 4.3 3.5 - 5.0 mmol/L [facility] Comment: Please note: Patients with WBC >100,000 may have falsely elevated Potassium levels. Contact the Clinical Chemistry L aboratory if there are any questions. ICa Whole Blood 1.17 1.15 - 1.33 mmol/L [facility] Comment: Note: ??Total bilirubin higher than 20 m g/dL may lead to falsely low ionized calcium. CL Whole Blood 103 98 - 107 mmol/L [facility] Gluc Whole Bld 101 65 - 199 mg/dL [facility] Comment: Diabetes: >=200 mg/dL plus symp toms Lactate WB 1.3 0.5 - 2.2 mmol/L [facility] FIO2 Honorio 21 % [facility] BGas Source Venous [facility] Specimen Anatomical Collection Method Collection Time Receive d Time (Source) Location / / Volume Laterality Blood 01/26/2022 12:26 01/26/2022 AM EDT 12:26 AM EDT Beck Sanz MD CHEMISTRY ORDERABLES Performing Organization Address City/[facility]/[place] [address] Scan, Peripheral Blood (01/26/2022 12:20 AM EDT) [facility] [employer] Method Time Signature Plat Estimate Decreased [facility] RBC Morphology Abnormal [facility] Polychromasia Present >5/HPF [facility] Pappenheimer Bdy Present >1/HPF [facility] Specimen Anatomical Collection Method Collection Time Receive d Time (Source) Location / / Volume Laterality Blood 01/26/2022 12:20 01/26/2022 AM EDT 12:29 AM EDT Resulting Agency Comment Spec In Lab Cristina Hillman APRN HEMATOLOGY ORDERABLES Performing Organization Address City/[facility]/[place] [address] (ABNORMAL) Differential, Automated (01/26/2022 12:20 AM EDT) [facility] [employer] Method Time Signature Neutrophils % 69.3 % [facility] Neutr Abs (ANC) 8.94 (H) 1.70 - [facility] 6.10 [facility] x10(3)/[facility] L LABORATORY Lymphocytes % 13.7 % [facility] Lymphocytes Abs 1.8 0.9 - 3.2 [facility] x10(3)/[facility] LABORATORY Monocytes % 5.7 % [facility] Monocyte Abs 0.7 0.3 - 0.9 [facility] x10(3)/[facility] LABORATORY Eosinophils % 2.0 % [facility] Eosinophils Abs 0.3 0.0 - 0.4 [facility] x10(3)/[facility] LABORATORY Basophils % 0.1 % [facility] Basophils Abs 0.0 0.0 - 0.1 [facility] x10(3)/[facility] LABORATORY Immature Gran % 9.20 % [facility] Comment: Immature granulocytes(IG's)percentage an d absolute count will include metamyelocytes, myelocytes, and promyelo cytes. Blood smears from CBCs yielding IG's will be scanned manually for concor dance. If this scan disagrees with the automated IG or if promyelocytes are not ed, a manual differential will be performed. Gemini Gran Abs 1.19 (H) 0.00 - 0.04 x10(3)/[facility] LABORATORY Specimen Anatomical Collection Method Collection Time Receive d Time (Source) Location / / Volume Laterality Blood 01/26/2022 12:20 01/26/2022 AM EDT 12:29 AM EDT Resulting Agency Comment Spec In Lab Jaquelintn Sal Hillman APRN HEMATOLOGY ORDERABLES Performing Organization Address City/State/ZIP [place] [address] (ABNORMAL) Hemogram (01/26/2022 12:20 AM EDT) [facility] gist Method Time Signature WBC 12.9 (H) 4.0 - 9.5 [facility] x10(3)/[facility] LABORATORY RBC 3.53 (L) 4.58 - [facility] 5.54 [facility] x10(6)/[facility] LABORATORY Hemoglobin 11.5 (L) 13.7 - [facility] 16.5 g/dL [facility]ORY Hematocrit 33.2 (L) 40.5 - [facility] 48.5 % [facility] LABORATORY MCV 94.1 (H) 82.9 - [facility] 93.1 [facility] LABORATORY MCH 32.6 (H) 27.5 - [facility]AD[facility] 32.1 pg [facility] MCHC 34.6 32.0 - [facility] 35.7 g/dL [facility] Platelets 115 (L) 145 - 357 [facility] x[facility](3[facility] LABORATORY RDWSD 43.1 36.0 - [facility] 45.0 [facility] LABORATORY RDWCV 12.4 11.4 - [facility] 13.8 % [facility] LABORATORY MPV 10.6 7.6 - 12.9 [facility] LABORATORY nRBC % Auto 0.2 % [facility] nRBC Abs Auto 0.020 (H) 0.000 - [facility] 0.000 [facility] x10(3)/[facility] LABORATORY Specimen Anatomical Collection Method Collection Time Receive d Time (Source) Location / / Volume Laterality Blood 01/26/2022 12:20 01/26/2022 AM EDT 12:29 AM EDT Resulting Agency Comment Spec In Lab Cristina Hillman APRN HEMATOLOGY ORDERABLES Performing Organization Address City/State/ZIP [place] [address] (ABNORMAL) Hepatic Function Panel (01/26/2022 12:20 AM EDT) P athologist Signature Total Protein 4.5 (L) 6.1 - 8.0 [facility] g/dL [facility] Albumin 2.3 (L) 3.2 - 5.2 [facility] g/dL [facility] AST 710 (H) 0 - 39 [facility] unit/L [facility] ALT 591 (H) 0 - 55 [facility] unit/L [facility] Alk Phos 56 40 - 130 [facility] unit/L [facility] Total 0.4 0.2 - 1.3 [facility] Bilirubin mg/dL [facility] Bili, Direct 0.2 0.0 - 0.3 [facility] mg/dL [facility] Specimen Anatomical Collection Method Collection Time Receive d Time (Source) Location / / Volume Laterality Blood 01/26/2022 12:20 01/26/2022 AM EDT 12:29 AM EDT Resulting Agency Comment Spec In Lab Cristina Tongcaitlin AVENDAÑO CHEMISTRY ORDERABLES Performing Organization Address City/State/ZIP [place] [address] (ABNORMAL) Basic Metabolic Panel (non-fasting) (01/26/2022 12:20 AM EDT) athologist Signature Glucose Lvl 104 65 - 199 [facility] mg/dL [facility] Comment: Diabetes: >=200 mg/dL plus symp toms BUN 26 (H) 10 - 20 mg/dL [facility] LABORATORY Creatinine 1.89 (H) 0.80 - 1.50 mg/dL [facility]OR[facility] Sodium 137 135 - 145 mmol/L [facility] Potassium 4.6 3.5 - 5.0 mmol/L [facility] Comment: Please note: ??Patients with WBC >100,00 0 may have falsely elevated Potassium levels. ??For accurate Potassium quantif ication in these patients send serum separator tube (gold top) for subsequent determinations. ??Contact the Clinical Chemistry Laboratory if there are any qu estions. Chloride 103 98 - 107 mmol/L [facility] CO2 27 22 - 31 mmol/L [facility] Anion Gap 7 5 - 15 mmol/L [facility] LABORATORY Calcium 8.3 (L) 8.5 - 10.5 mg/dL [facility] Estimated GFR 48 (L) >=60 mL/min/1.73 m?? [facility] Comment: This patient's estimated [...] Organization Address City/State/ZIP Code Phon e Number [address] Phosphorus (01/26/2022 12:20 AM EDT) P athologist Signature Phosphorus 3.0 2.5 - 4.5 [facility] Specimen Anatomical Collection Method Collection Time Receive d Time (Source) Location / / Volume Laterality Blood 01/26/2022 12:20 01/26/2022 AM EDT 12:29 AM EDT Resulting Agency Comment Spec In Lab Gela Novak MD CHEMISTRY ORDERABLES Performing Organization Address City/State/ZIP Code Phon e Number [address] Magnesium (01/26/2022 12:20 AM EDT) P athologist Signature Magnesium 0.85 0.69 - 1.07 [facility] mmol/L [facility] LABOR[facility]ORY Specimen Anatomical Collection Method Collection Time Receive d Time (Source) Location / / Volume Laterality Blood 01/26/2022 12:20 01/26/2022 AM EDT 12:29 AM EDT Resulting Agency Comment Spec In Lab Gela Novak MD CHEMISTRY ORDERABLES Performing Organization Address City/[facility]/ZIP Code Phon e Number [address] Triglyceride (01/26/2022 12:20 AM EDT) P athologist Signature Triglycerides 359 mg/dL [facility] Comment: Average Risk/Lower Risk: <150 mg/dL Borderline High Risk: 150-199 mg/dL High Risk: 200-499 mg/dL Very High Risk: >ar=663 mg/dL Specimen Anatomical Collection Method Collection Time Receive d Time (Source) Location / / Volume Laterality Blood 01/26/2022 12:20 01/26/2022 AM EDT 12:29 AM EDT Resulting Agency Comment Spec In Lab Beck Sanz MD CHEMISTRY ORDERABLES Performing Organization Address City/[facility]/ZIP Code Phon e Number [address] POCT Glucose (01/26/2022 12:01 AM EDT) athologist Signature POC Glucose 94 65 - 199 [facility] mg/dL [facility] Comment: Supplemental ranges: <140 mg/dL before meals <180 mg/dL all other times of the day Specimen Anatomical Collection Method Collection Time Receive d Time (Source) Location / / Volume Laterality Blood 01/26/2022 12:01 01/26/2022 AM EDT 12:01 AM EDT Beck Sanz MD POINT OF CARE TEST ORDERABLE S Performing Organization Address City/[facility]/[place] [address] POCT Glucose (01/25/2022 8:08 PM EDT) athologist Signature POC Glucose 101 65 - 199 [facility] [place] mg/dL [facility] Comment: Supplemental ranges: <140 mg/dL before meals <180 mg/dL all other times of the day Specimen Anatomical Collection Method Collection Time Receive d Time (Source) Location / / Volume Laterality Blood 01/25/2022 8:08 PM 8:08 EDT PM EDT Beck Sanz MD POINT OF CARE TEST ORDERABLE S Performing Organization Address City/[facility]/ZIP Code Phon e Number [address] (ABNORMAL) BLOOD GAS 2 VENOUS (01/25/2022 6:07 PM EDT) athologist Signature pH Honorio 7.37 7.32 - [facility] [place] 7.42 [facility] LABORATORY pCO2 Honorio 45 41 - 51 [facility] LABORATORY pO2 Honorio 31 25 - 40 [facility] LABORATORY HCO3 Honorio 25.5 mmol/L [facility] BE Honorio 0.2 mmol/L [facility] Hgb Blood Gas 14.1 13.7 - [facility] 16.5 g/dL [facility] O2HB Honorio 59.1 % [facility] COHB Honorio 1.3 % [facility] Comment: Nonsmokers: 0.5-1.5% COHB Smokers: Variable, but usually less than 10% Toxic: 20-30% COHB Lethal: Greater than 60% COHB METHB Honorio 0.0 <=1.5 % [facility]OR[facility] Na Whole Blood 132 (L) 135 - 145 mmol/L [facility]OR[facility] K Whole Blood 4.4 3.5 - 5.0 mmol/L [facility] Comment: Please note: Patients with WBC >100,000 may have falsely elevated Potassium levels. Contact the Clinical Chemistry L aboratory if there are any questions. ICa Whole Blood 1.20 1.15 - 1.33 mmol/L [facility] Comment: Note: ??Total bilirubin higher than 20 m g/dL may lead to falsely low ionized calcium. CL Whole Blood 102 98 - 107 mmol/L [facility] Gluc Whole Bld 119 65 - 199 mg/dL [facility] LABORATORY Comment: Diabetes: >=200 mg/dL plus symp toms Lactate WB 1.0 0.5 - 2.2 mmol/L [facility] FIO2 Honorio 21 % [facility] BGas Source Central Venous [facility] LABORATORY Specimen Anatomical Collection Method Collection Time Receive d Time (Source) Location / / Volume Laterality Blood 01/25/2022 6:07 PM 6:07 EDT PM EDT Beck Sanz MD CHEMISTRY ORDERABLES Performing Organization Address City/State/ZIP [place] [address] (ABNORMAL) CK (01/25/2022 6:00 PM EDT) athologist Signature CK, Total 32,675 (H) 0 - 200 [facility] unit/L [facility] Specimen Anatomical Collection Method Collection Time Receive d Time (Source) Location / / Volume Laterality Blood 01/25/2022 6:00 PM 2 6:12 EDT PM EDT Resulting Agency Comment Spec In Lab Cristina Hillman APRN CHEMISTRY ORDERABLES Performing Organization Address City/State/ZIP Code Phon e Number [address] POCT Glucose (01/25/2022 4:09 PM EDT) athologist [facility] POC Glucose 103 65 - 199 [facility] mg/dL [facility] Comment: Supplemental ranges: <140 mg/dL before meals <180 mg/dL all other times of the day Specimen Anatomical Collection Method Collection Time Receive d Time (Source) Location / / Volume Laterality Blood 01/25/2022 4:09 PM 2 4:09 EDT PM EDT Beck Sanz MD POINT OF CARE TEST ORDERABLE S Performing Organization Address City/State/[place] [address] (ABNORMAL) BLOOD GAS 2 VENOUS (01/25/2022 11:59 AM EDT) Analysis Performed At Patho logist Time Signature pH Honorio 7.40 7.32 - [facility] 7.42 [facility]OR[facility]ORY pCO2 Honorio 45 41 - 51 [facility] LABORATORY pO2 Honorio 34 25 - 40 [facility] LABORATORY HCO3 Honorio 27.0 mmol/L [facility] BE Honorio 2.2 mmol/L [facility] Hgb Blood Gas 12.2 (L) 13.7 - [facility] 16.5 g/dL [facility] O2HB Honorio 64.3 % [facility] COHB Honorio 0.2 % [facility] [facility] Comment: Nonsmokers: 0.5-1.5% COHB Smokers: Variable, but usually less than 10% Toxic: 20-30% COHB Lethal: Greater than 60% COHB METHB Honorio 0.3 <=1.5 % [facility] Na Whole Blood 132 (L) 135 - 145 mmol/L [facility] K Whole Blood 4.6 3.5 - 5.0 mmol/L [facility] Comment: Please note: Patients with WBC >100,000 may have falsely elevated Potassium levels. Contact the Clinical Chemistry L aboratory if there are any questions. ICa Whole Blood 1.22 1.15 - 1.33 mmol/L [facility] Comment: Note: ??Total bilirubin higher than 20 m g/dL may lead to falsely low ionized calcium. CL Whole Blood 103 98 - 107 mmol/L [facility] Gluc Whole Bld 115 65 - 199 mg/dL [facility] Comment: Diabetes: >=200 mg/dL plus symp toms Lactate WB 1.3 0.5 - 2.2 mmol/L [facility] FIO2 Honorio 21 % [facility] BGas Source Central Venous [facility] Specimen Anatomical Collection Method Collection Time Receive d Time (Source) Location / / Volume Laterality Blood 01/25/2022 11:59 01/25/2022 AM EDT 11:59 AM EDT Beck Sanz MD CHEMISTRY ORDERABLES Performing Organization Address City/[facility]/ZIP [place] [address] POCT Glucose (01/25/2022 11:56 AM EDT) P athologist Signature POC Glucose 88 65 - 199 [facility] mg/dL [facility] Comment: Supplemental ranges: <140 mg/dL before meals <180 mg/dL all other times of the day Specimen Anatomical Collection Method Collection Time Receive d Time (Source) Location / / Volume Laterality Blood 01/25/2022 11:56 01/25/2022 AM EDT 11:56 AM EDT Beck Sanz MD POINT OF CARE TEST ORDERABLE S Performing Organization Address City/State/ZIP Code Phon e Number [address] Phosphorus (01/25/2022 11:55 AM EDT) P athologist Signature Phosphorus 2.7 2.5 - 4.5 [place] [place] mg/dL [facility] Specimen Anatomical Collection Method Collection Time Receive d Time (Source) Location / / Volume Laterality Blood 01/25/2022 11:55 01/25/2022 AM EDT 12:05 PM EDT Resulting Agency Comment Spec In Lab Angelina Reynoso MD CHEMISTRY ORDERABLES Performing Organization Address City/State/ZIP Code Phon e Number [address] Magnesium (01/25/2022 11:55 AM EDT) P athologist Signature Magnesium 0.80 0.69 - 1.07 [facility]/L [facility] Specimen Anatomical Collection Method Collection Time Receive d Time (Source) Location / / Volume Laterality Blood 01/25/2022 11:55 01/25/2022 AM EDT 12:05 PM EDT Resulting Agency Comment Spec In Lab Angelina Reynoso MD CHEMISTRY ORDERABLES Performing Organization Address City/State/ZIP Code Phon e Number [address] (ABNORMAL) Creatinine (01/25/2022 11:55 AM EDT) Analysis Performed At Patho logist Time Signature Creatinine 2.06 (H) 0.80 - [place] [place] 1.50 mg/dL [facility] Estimated GFR 44 (L) >=60 [facility] [place] mL/min/1.7 [facility] 3 ?? [facility] Comment: This patient's [...] Reynoso MD CHEMISTRY ORDERABLES Performing Organization Address City/[facility]/ZIP Code Phon e Number [address] (ABNORMAL) BUN (01/25/2022 11:55 AM EDT) P athologist Signature BUN 28 (H) 10 - 20 [facility] mg/dL [facility] Specimen Anatomical Collection Method Collection Time Receive d Time (Source) Location / / Volume Laterality Blood 01/25/2022 11:55 01/25/2022 AM EDT 12:05 PM EDT Resulting Agency Comment Spec In Lab Angelina Reynoso MD CHEMISTRY ORDERABLES Performing Organization Address City/[facility]/[place] [address] Electrolytes panel (01/25/2022 11:55 AM EDT) P athologist Signature Sodium 137 135 - 145 [facility] mmol/L [facility] Potassium 4.7 3.5 - 5.0 [facility] mmol/L [facility] Comment: Please note: ??Patients with WBC >100,00 0 may have falsely elevated Potassium levels. ??For accurate Potassium quantif ication in these patients send serum separator tube (gold top) for subsequent determinations. ??Contact the Clinical Chemistry Laboratory if there are any qu estions. Chloride 104 98 - 107 mmol/L [facility] CO2 25 22 - 31 mmol/L [facility] Anion Gap 8 5 - 15 mmol/L [facility] Specimen Anatomical Collection Method Collection Time Receive d Time (Source) Location / / Volume Laterality Blood 01/25/2022 11:55 01/25/2022 AM EDT 12:05 PM EDT Resulting Agency Comment Spec In Lab Angelina Reynoso MD CHEMISTRY ORDERABLES Performing Organization Address City/State/[place] [address] (ABNORMAL) CK (01/25/2022 11:55 AM EDT) athologist Signature CK, Total 36,897 (H) 0 - 200 [facility] unit/L [facility] Specimen Anatomical Collection Method Collection Time Receive d Time (Source) Location / / Volume Laterality Blood 01/25/2022 11:55 01/25/2022 AM EDT 12:05 PM EDT Resulting Agency Comment Spec In Lab Gemma B Pentland INSULATION WORKER CHEMISTRY ORDERABLES Performing Organization Address City/[facility]/[place] [address] POCT Glucose (01/25/2022 8:31 AM EDT) athologist [facility] POC Glucose 113 65 - 199 [facility] mg/dL [facility] Comment: Supplemental ranges: <140 mg/dL before meals <180 mg/dL all other times of the day Specimen Anatomical Collection Method Collection Time Receive d Time (Source) Location / / Volume Laterality Blood 01/25/2022 8:31 AM 2 8:31 EDT AM EDT Tex Robles MD POINT OF CARE TEST ORDERABLE S Performing Organization Address City/State/[place] [address] (ABNORMAL) CK (01/25/2022 8:20 AM EDT) athologist [facility] CK, Total 36,878 (H) 0 - 200 [facility] unit/[facility] Specimen Anatomical Collection Method Collection Time Receive d Time (Source) Location / / Volume Laterality Blood 01/25/2022 8:20 AM 2 8:37 EDT AM EDT Resulting Agency Comment Spec In Lab Gemma B Pentland INSULATION WORKER CHEMISTRY ORDERABLES Performing Organization Address City/State/[place] [address] (ABNORMAL) BLOOD GAS 2 ARTERIAL (01/25/2022 6:22 AM EDT) Analysis Performed At Patho logist Time Signature pH Art 7.45 7.35 - [facility] 7.45 [facility] pCO2 Art 33 (L) 35 - 45 [facility] mmHg [facility] pO2 Art 114 (H) 85 - 104 [facility] LABORATORY HCO3 Art 22.4 20.0 - [facility] 26.0 [facility] mmol/L [facility] BE Art -1.6 -3.0 - 3.0 [facility] mmol/L [facility] Hgb Blood Gas 13.3 (L) 13.7 - [facility] 16.5 g/dL [facility] O2HB Art 97.0 94.0 - [facility] 97.0 % [facility] COHB Art 0.3 % [facility] Comment: Nonsmokers: 0.5-1.5% COHB Smokers: Variable, but usually less than 10% Toxic: 20-30% COHB Lethal: Greater than 60% COHB METHB Art 0.2 <=1.5 % [facility] Na Whole Blood 131 (L) 135 - 145 mmol/L [facility] K Whole Blood 5.0 3.5 - 5.0 mmol/L [facility] Comment: Please note: Patients with WBC >100,000 may have falsely elevated Potassium levels. Contact the Clinical Chemistry L aboratory if there are any questions. ICa Whole Blood 1.21 1.15 - 1.33 mmol/L [facility] Comment: Note: ??Total bilirubin higher than 20 m g/dL may lead to falsely low ionized calcium. CL Whole Blood 103 98 - 107 mmol/L [facility] Gluc Whole Bld 122 65 - 199 mg/dL [facility] Comment: Diabetes: >=200 mg/dL plus symp toms. Lactate WB 1.3 0.5 - 2.2 mmol/L [facility] FIO2 Art 35 % [facility] PF Ratio Art [address] [facility] Specimen Anatomical Collection Method Collection Time Receive d Time (Source) Location / / Volume Laterality Blood 01/25/2022 6:22 AM 2 6:22 EDT AM EDT Tex Robles MD CHEMISTRY ORDERABLES Performing Organization Address City/[facility]/ZIP Code Phon e Number [address] POCT Glucose (01/25/2022 3:49 AM EDT) P athologist Signature POC Glucose 121 65 - 199 [facility] mg/dL [facility] Comment: Supplemental ranges: <140 mg/dL before meals <180 mg/dL all other times of the day Specimen Anatomical Collection Method Collection Time Receive d Time (Source) Location / / Volume Laterality Blood 01/25/2022 3:49 AM 2 3:49 EDT AM EDT Tex Robles MD POINT OF CARE TEST ORDERABLE S Performing Organization Address City/[facility]/[place] [address] Scan, Peripheral Blood (01/25/2022 12:30 AM EDT) [facility] [employer] Method Time Signature Plat Estimate Decreased [facility] RBC Morphology Normal [facility] Specimen Anatomical Collection Method Collection Time Receive d Time (Source) Location / / Volume Laterality Blood 01/25/2022 12:30 01/25/2022 AM EDT 12:39 AM EDT Resulting Agency Comment Spec In Lab Cristina Hillman APRN HEMATOLOGY ORDERABLES Performing Organization Address City/[facility]/ZIP Code Phon e Number [address] (ABNORMAL) Differential, Automated (01/25/2022 12:30 AM EDT) [employer] Method Time Signature Neutrophils % 77.1 % [facility] Neutr Abs (ANC) 6.61 (H) 1.70 - [facility] 6.10 [facility] x10(3)/[facility] L LABORATORY Lymphocytes % 12.9 % [facility] Lymphocytes Abs 1.1 0.9 - 3.2 [facility] x10(3)/[facility] LABORATORY Monocytes % 7.5 % [facility] Monocyte Abs 0.6 0.3 - 0.9 [facility] x10(3)/[facility] LABORATORY Eosinophils % 0.3 % [facility] Eosinophils Abs 0.0 0.0 - 0.4 [facility] x10(3)/[facility] LABORATORY Basophils % 0.3 % [facility] Basophils Abs 0.0 0.0 - 0.1 [facility] x10(3)/[facility] LABORATORY Immature Gran % 1.90 % [facility] Comment: Immature granulocytes(IG's)percentage an d absolute count will include metamyelocytes, myelocytes, and promyelo cytes. Blood smears from CBCs yielding IG's will be scanned manually for concor dance. If this scan disagrees with the automated IG or if promyelocytes are not ed, a manual differential will be performed. Gemini Gran Abs 0.16 (H) 0.00 - 0.04 x10(3)/[facility] LABORATORY Specimen Anatomical Collection Method Collection Time Receive d Time (Source) Location / / Volume Laterality Blood 01/25/2022 12:30 01/25/2022 AM EDT 12:39 AM EDT Resulting Agency Comment Spec In Lab Cristina Hillman APRN HEMATOLOGY ORDERABLES Performing Organization Address City/State/ZIP [place] [address] (ABNORMAL) Hemogram (01/25/2022 12:30 AM EDT) Analysis Performed At Patho logist Time Signature WBC 8.6 4.0 - 9.5 [facility] x10(3)/[facility] LABORATORY RBC 3.39 (L) 4.58 - [facility] 5.54 [facility] x10(6)/[facility] LABORATORY Hemoglobin 11.0 (L) 13.7 - [facility] 16.5 g/dL [facility] Hematocrit 31.2 (L) 40.5 - [facility] 48.5 % [facility] MCV 92.0 82.9 - [facility] 93.1 [facility] LABORATORY MCH 32.4 (H) 27.5 - [facility] 32.1 pg [facility] MCHC 35.3 32.0 - [place] [place] 35.7 g/dL [facility] Platelets 88 (L) 145 - 357 [facility] x10(3)/[facility] LABORATORY RDWSD 41.2 36.0 - [place] [place] 45.0 [facility] LABORATORY RDWCV 12.2 11.4 - [facility] MANDO 13.8 % [facility] MPV 10.6 7.6 - 12.9 [facility] nRBC % Auto 0.0 % [facility] nRBC Abs Auto 0.000 0.000 - [facility] MANDO 0.000 [facility] x10(3)/[facility] LABORATORY Specimen Anatomical Collection Method Collection Time Receive d Time (Source) Location / / Volume Laterality Blood 01/25/2022 12:30 01/25/2022 AM EDT 12:39 AM EDT Resulting Agency Comment Spec In Lab Nefsisma B Pentland INSULATION WORKER HEMATOLOGY ORDERABLES Performing Organization Address City/State/[place] [address] (ABNORMAL) CK (01/25/2022 12:30 AM EDT) P athologist Signature CK, Total 42,239 (H) 0 - 200 [facility] unit/L [facility] Specimen Anatomical Collection Method Collection Time Receive d Time (Source) Location / / Volume Laterality Blood 01/25/2022 12:30 01/25/2022 AM EDT 12:39 AM EDT Resulting Agency Comment Spec In Lab Nefsisma B Pentland INSULATION WORKER CHEMISTRY ORDERABLES Performing Organization Address City/State/ZIP Code Phon e Number [address] (ABNORMAL) Hepatic Function Panel (01/25/2022 12:30 AM EDT) P athologist Signature Total Protein 4.1 (L) 6.1 - 8.0 [facility] g/dL [facility] Albumin 2.0 (L) 3.2 - 5.2 [facility] g/dL [facility] AST 797 (H) 0 - 39 [facility] unit/L [facility] ALT 583 (H) 0 - 55 [facility] MANDO unit/L [facility] Alk Phos 51 40 - 130 [facility] unit/L [facility] Total 0.3 0.2 - 1.3 [facility] Bilirubin mg/dL [facility] Bili, Direct 0.1 0.0 - 0.3 [facility] mg/dL [facility] Specimen Anatomical Collection Method Collection Time Receive d Time (Source) Location / / Volume Laterality Blood 01/25/2022 12:30 01/25/2022 AM EDT 12:39 AM EDT Resulting Agency Comment Spec In Lab Cristina Hillman APRN CHEMISTRY ORDERABLES Performing Organization Address City/State/ZIP [place] [address] (ABNORMAL) Basic Metabolic Panel (non-fasting) (01/25/2022 12:30 AM EDT) athologist Signature Glucose Lvl 129 65 - 199 [facility] mg/dL [facility] Comment: Diabetes: >=200 mg/dL plus symp toms BUN 30 (H) 10 - 20 mg/dL [facility] Creatinine 2.39 (H) 0.80 - 1.50 mg/dL [facility] Sodium 135 135 - 145 mmol/L [facility] Potassium 5.0 3.5 - 5.0 mmol/L [facility] Comment: Please note: ??Patients with WBC >100,00 0 may have falsely elevated Potassium levels. ??For accurate Potassium quantif ication in these patients send serum separator tube (gold top) for subsequent determinations. ??Contact the Clinical Chemistry Laboratory if there are any qu estions. Chloride 105 98 - 107 mmol/L [facility] CO2 24 22 - 31 mmol/L [facility] Anion Gap 6 5 - 15 mmol/L [facility] Calcium 8.2 (L) 8.5 - 10.5 mg/dL [facility] Estimated GFR 36 (L) >=60 mL/min/1.73 m?? [facility] Comment: This patient's estimated [...] Organization Address City/State/ZIP Code Phon e Number [address] Phosphorus (01/25/2022 12:30 AM EDT) P athologist Signature Phosphorus 3.9 2.5 - 4.5 [facility] mg/dL [facility] Specimen Anatomical Collection Method Collection Time Receive d Time (Source) Location / / Volume Laterality Blood 01/25/2022 12:30 01/25/2022 AM EDT 12:39 AM EDT Resulting Agency Comment Spec In Lab Gela Novak MD CHEMISTRY ORDERABLES Performing Organization Address City/State/ZIP Code Phon e Number [address] Magnesium (01/25/2022 12:30 AM EDT) P athologist Signature Magnesium 0.89 0.69 - 1.07 [facility] mmol/L [facility] Specimen Anatomical Collection Method Collection Time Receive d Time (Source) Location / / Volume Laterality Blood 01/25/2022 12:30 01/25/2022 AM EDT 12:39 AM EDT Resulting Agency Comment Spec In Lab Gela Novak MD CHEMISTRY ORDERABLES Performing Organization Address City/State/ZIP Code Phon e Number [address] POCT Glucose (01/25/2022 12:19 AM EDT) athologist Signature POC Glucose 126 65 - 199 [facility] mg/dL [facility] Comment: Supplemental ranges: <140 mg/dL before meals <180 mg/dL all other times of the day Specimen Anatomical Collection Method Collection Time Receive d Time (Source) Location / / Volume Laterality Blood 01/25/2022 12:19 01/25/2022 AM EDT 12:19 AM EDT Tex Robles MD POINT OF CARE TEST ORDERABLE S Performing Organization Address City/[facility]/[place] [address] Angiogram Carotids (01/24/2022 [...] who have questions please contact the health care associate that requested your imaging first. ? Narrative 01/25/2022 10:26 AM EDT EXAMINATION: CT ANGIOGRAM [place], [place] ANGIOGRAM CAROTIDS CLINICAL HISTORY: [...] different from the original. EXAMINATION: CT ANGIOGRAM [place], CT ANGIOGRAM CAROTIDS CLINICAL [...] ho have questions please contact the health care associate that requested your imaging first. Agnieszka López INSULATION WORKER IMG CT ORDERABLES CT Angiogram [place] (01/24/2022 11:32 PM EDT) Anatomical [...] who have questions please contact the health care associate that requested your imaging first. ? Narrative 01/25/2022 10:26 AM EDT EXAMINATION: CT ANGIOGRAM [place], [place] ANGIOGRAM CAROTIDS CLINICAL HISTORY: [...] different from the original. EXAMINATION: CT ANGIOGRAM [place], CT ANGIOGRAM CAROTIDS CLINICAL [...] ho have questions please contact the health care associate that requested your imaging first. Agnieszka Machado Maribel INSULATION WORKER IMG CT ORDERABLES POCT Glucose (01/24/2022 8:11 PM EDT) athologist Signature POC Glucose 135 65 - 199 [facility] mg/dL [facility] Comment: Supplemental ranges: <140 mg/dL before meals <180 mg/dL all other times of the day Specimen Anatomical Collection Method Collection Time Receive d Time (Source) Location / / Volume Laterality Blood 01/24/2022 8:11 PM 2 8:11 EDT PM EDT Tex Robles MD POINT OF CARE TEST ORDERABLE S Performing Organization Address City/State/[place] [address] (ABNORMAL) CK (01/24/2022 6:20 PM EDT) athologist Signature CK, Total 50,445 (H) 0 - 200 [facility] unit/[facility] LABORATORY Specimen Anatomical Collection Method Collection Time Receive d Time (Source) Location / / Volume Laterality Blood 01/24/2022 6:20 PM 2 6:27 EDT PM EDT Resulting Agency Comment Spec In Lab Gemma B Alycialand INSULATION WORKER CHEMISTRY ORDERABLES Performing Organization Address City/State/[place] [address] MRI Brain wo Contrast [...] who have questions please contact the health care associate that requested your imaging first. [...] ho have questions please contact the health care associate that requested your imaging first. Cristina Hillman INSULATION WORKER IMG MRI ORDERABLES MRSA PCR (01/24/2022 1:10 PM EDT) [facility] gist Method Time Signature MRSA Result Negative Negative [facility] MRSA Interp Negative for methicillin-resistant Staphylococcus aureus (MRSA) [facility] This test was performed using the [employer] [place]?? Dx System an d the Xpert MRSA [facility] Assay. The MRSA target DNA was not detec karina. The sample processing control and HOSPITAL probe check were valid. The performance of this test was determined by the [facility] Molecular Pathology Laboratory. It has been [...] Organization Address City/State/ZIP [place] [address] (ABNORMAL) CK (01/24/2022 12:14 PM EDT) athologist Signature CK, Total 61,457 (H) 0 - 200 [facility] unit/[facility] LAB[facility]ORY Specimen Anatomical Collection Method Collection Time Receive d Time (Source) Location / / Volume Laterality Blood 01/24/2022 12:14 01/24/2022 1:00 PM EDT PM EDT Resulting Agency Comment Spec In Lab Gemma B Alycialand INSULATION WORKER CHEMISTRY ORDERABLES Performing Organization Address City/State/[place] [address] POCT Glucose (01/24/2022 12:13 PM EDT) athologist Signature POC Glucose 132 65 - 199 [facility] mg/dL [facility] Comment: Supplemental ranges: <140 mg/dL before meals <180 mg/dL all other times of the day Specimen Anatomical Collection Method Collection Time Receive d Time (Source) Location / / Volume Laterality Blood 01/24/2022 12:13 01/24/2022 PM EDT 12:13 PM EDT Tex Robles MD POINT OF CARE TEST ORDERABLE S Performing Organization Address City/State/[place] [address] ECHOCARDIOGRAM COMPLETE W CONTRAST (01/24/2022 9:30 AM EDT) Anatomical Region Laterality Modality Cardiac Other Specimen (Source) Anatomical Collection Method Collection Time Re ceived Time Location / / Volume Laterality 01/23/2022 12:16 PM EDT Narrative 01/24/2022 11:52 AM EDT [facility] ?[address] ? [place] [address] ?Voice: ?Fax: ? Echocardiogram Report Name: ALIX HOLLAND ?Study Date : 01/23/2022 12:16 PM ?BP: 96/65 mmHg ?Patient Location: [address] A : 1990 ?Height: 183 cm ? Account: [id number] Age: 31 yrs ?Weigh t: 102 kg [...] 05/03/2018, the prior LVEF was normal. Procedure Complete-[id number]. Right ventricular strain . Image enhancement [employer] [...] note might be different from the original. [facility] [address] [place] [address] Voice: Fax: Echocardiogram Report Name: ALIX HOLLAND Study Date: 2021 12:16 PM BP: 96/65 mmHg Patient Location: [facility] C43 : 1990 Height: 183 cm Account: [id number] Age: 31 yrs Weight: 102 kg Gender: [...] 05/03/2018, the prior LVEF was normal. Procedure Complete-[id number]. Right ventricular strain . Image enhancement [employer] [...] Signature POC Glucose 122 65 - 199 [facility] mg/dL [facility] Comment: Supplemental ranges: <140 mg/dL before meals <180 mg/dL all other times of the day Specimen Anatomical Collection Method Collection Time Receive d Time (Source) Location / / Volume Laterality Blood 01/24/2022 8:39 AM 2 8:39 EDT AM EDT Tex Robles MD POINT OF CARE TEST ORDERABLE S Performing Organization Address City/State/[place] [address] (ABNORMAL) CK (01/24/2022 6:25 AM EDT) athologist [facility] CK, Total 84,528 (H) 0 - 200 [facility] unit/L [facility] LABORATORY Specimen Anatomical Collection Method Collection Time Receive d Time (Source) Location / / Volume Laterality Blood 01/24/2022 6:25 AM 2 6:40 EDT AM EDT Resulting Agency Comment Spec In Lab Tex Robles MD CHEMISTRY ORDERABLES Performing Organization Address City/State/[place] [address] Electrolytes panel (01/24/2022 6:25 AM EDT) athologist [facility] Sodium 136 135 - 145 [facility] mmol/L [facility] Potassium 4.4 3.5 - 5.0 [facility] mmol/L [facility] Comment: Please note: ??Patients with WBC >100,00 0 may have falsely elevated Potassium levels. ??For accurate Potassium quantif ication in these patients send serum separator tube (gold top) for subsequent determinations. ??Contact the Clinical Chemistry Laboratory if there are any qu estions. Chloride 103 98 - 107 mmol/L [facility] LABOR[facility] CO2 22 22 - 31 mmol/L [facility] Anion Gap 11 5 - 15 mmol/L [facility] LABORATORY Specimen Anatomical Collection Method Collection Time Receive d Time (Source) Location / / Volume Laterality Blood 01/24/2022 6:25 AM 6:40 EDT AM EDT Resulting Agency Comment Spec In Lab Angelina Reynoso MD CHEMISTRY ORDERABLES Performing Organization Address City/State/ZIP [place] [address] (ABNORMAL) Blood Gas Arterial ([facility]) (01/24/2022 6:20 AM EDT) Analysis Performed At Patho logist Time Signature pH Art 7.48 (H) 7.35 - [facility] 7.45 [facility] LABORATORY pCO2 Art 29 (L) 35 - 45 [facility] LABORATORY pO2 Art 68 (L) 85 - 104 [facility] LABORATORY HCO3 Art 21.1 20.0 - [facility] 26.0 [facility] mmol/L [facility] LABORATORY BE Art -2.3 -3.0 - 3.0 [facility] mmol/L [facility] Hgb Blood Gas 14.7 13.7 - [facility] 16.5 g/dL [facility] O2HB Art 91.8 (L) 94.0 - [facility] 97.0 % [facility] LABOR[facility]ORY COHB Art 0.8 % [facility] Comment: Nonsmokers: ??0.5-1.5% COHB Smokers: ??Variable, but usually less th an 10% Toxic: 20 - 30% COHB Lethal: ??Greater than 60% COHB METHB Art 0.3 <=1.5 % [facility] LABORATORY Na Whole Blood 133 (L) 135 - 145 mmol/L [facility] LABORATORY K Whole Blood 4.3 3.5 - 5.0 mmol/L [facility] LABOR[facility]ORY Comment: Please note: ??Patients with WBC >100,00 0 may have falsely elevated Potassium levels. ??Contact the Clinical Chemistry Laboratory if there are any questions. ICa Whole Blood 1.16 1.15 - 1.33 mmol/L [facility]OR[facility] Comment: Note: ??Total bilirubin higher than 20 m g/dL may lead to falsely low ionized calcium. CL Whole Blood 103 98 - 107 mmol/L [facility] LABOR[facility]ORY Gluc Whole Bld 134 65 - 199 mg/dL [facility] LABORATORY Comment: Diabetes: >=200 mg/dL plus symp toms. Lactate WB 1.9 0.5 - 2.2 mmol/L [facility] LABORATORY Specimen Anatomical Collection Method Collection Time Receive d Time (Source) Location / / Volume Laterality Blood Arterial Draw / 01/24/2022 6:20 AM 2021 6:30 Unknown EDT AM EDT Resulting Agency Comment Spec In Lab Angelina Reynoso MD CHEMISTRY ORDERABLES Performing Organization Address City/[facility]/[place] [address] POCT Glucose (01/24/2022 4:06 AM EDT) P athologist Signature POC Glucose 103 65 - 199 [facility] mg/dL [facility] Comment: Supplemental ranges: <140 mg/dL before meals <180 mg/dL all other times of the day Specimen Anatomical Collection Method Collection Time Receive d Time (Source) Location / / Volume Laterality Blood 01/24/2022 4:06 AM 4:06 EDT AM EDT Tex Robles MD POINT OF CARE TEST ORDERABLE S Performing Organization Address City/State/[place] [address] (ABNORMAL) Differential, Automated (01/24/2022 12:18 AM EDT) Patholo gist Method Time Signature Neutrophils % 77.0 % [facility] LABORATORY Neutr Abs (ANC) 8.76 (H) 1.70 - [facility] 6.10 [facility] x10(3)/[facility] L LABORATORY Lymphocytes % 13.0 % [facility] LABORATORY Lymphocytes Abs 1.5 0.9 - 3.2 [facility] x10(3)/[facility] LABORATORY Monocytes % 8.0 % [facility] LABORATORY Monocyte Abs 0.9 0.3 - 0.9 [facility] x10(3)/[facility] LABORATORY Eosinophils % 0.4 % [facility] LABORATORY Eosinophils Abs 0.0 0.0 - 0.4 [facility] x10(3)/[facility] LABORATORY Basophils % 0.4 % [facility] LABORATORY Basophils Abs 0.0 0.0 - 0.1 [facility] x10(3)/[facility] LABORATORY Immature Gran % 1.20 % [facility] LABORATORY Comment: Immature granulocytes(IG's)percentage an d absolute count will include metamyelocytes, myelocytes, and promyelo cytes. Blood smears from CBCs yielding IG's will be scanned manually for concor dance. If this scan disagrees with the automated IG or if promyelocytes are not ed, a manual differential will be performed. Gemini Gran Abs 0.14 (H) 0.00 - 0.04 x10(3)/[facility] LABORATORY Specimen Anatomical Collection Method Collection Time Receive d Time (Source) Location / / Volume Laterality Blood 01/24/2022 12:18 01/24/2022 AM EDT 12:25 AM EDT Resulting Agency Comment Spec In Lab Cristina Hillman APRN HEMATOLOGY ORDERABLES Performing Organization Address City/State/ZIP [place] [address] (ABNORMAL) Hemogram (01/24/2022 12:18 AM EDT) Analysis Performed At Patho logist Time Signature WBC 11.4 (H) 4.0 - 9.5 [facility] x10(3)/[facility] LABORATORY RBC 4.66 4.58 - [facility] 5.54 [facility] x10(6)/[facility] LABORATORY Hemoglobin 14.8 13.7 - [facility] 16.5 g/dL [facility] LABORATORY Hematocrit 41.7 40.5 - [facility] 48.5 % [facility] LABORATORY MCV 89.5 82.9 - [facility] 93.1 [facility] LABORATORY MCH 31.8 27.5 - [facility] 32.1 pg [facility] LABORATORY MCHC 35.5 32.0 - [facility] 35.7 g/dL [facility] LABORATORY Platelets 136 (L) 145 - 357 [facility] x10(3)/[facility] LABORATORY RDWSD 40.0 36.0 - [facility] 45.0 [facility] LABORATORY RDWCV 12.3 11.4 - [facility] 13.8 % [facility] LABORATORY MPV 10.1 7.6 - 12.9 [facility] LABORATORY nRBC % Auto 0.0 % [facility] LABORATORY nRBC Abs Auto 0.000 0.000 - [facility] 0.000 [facility] x10(3)/[facility] LABORATORY Specimen Anatomical Collection Method Collection Time Receive d Time (Source) Location / / Volume Laterality Blood 01/24/2022 12:18 01/24/2022 AM EDT 12:25 AM EDT Resulting Agency Comment Spec In Lab Cristina Hillman APRN HEMATOLOGY ORDERABLES Performing Organization Address City/State/ZIP [place] [address] (ABNORMAL) Basic Metabolic Panel (non-fasting) (01/24/2022 12:18 AM EDT) P athologist Signature Glucose Lvl 164 65 - 199 [facility] mg/dL [facility] LABORATORY Comment: Diabetes: >=200 mg/dL plus symp toms BUN 31 (H) 10 - 20 mg/dL [facility] LABORATORY Creatinine 3.00 (H) 0.80 - 1.50 mg/dL [facility] LABORATORY Sodium 138 135 - 145 mmol/L [facility] LABORATORY Potassium 4.7 3.5 - 5.0 mmol/L [facility] LABORATORY Comment: Please note: ??Patients with WBC >100,00 0 may have falsely elevated Potassium levels. ??For accurate Potassium quantif ication in these patients send serum separator tube (gold top) for subsequent determinations. ??Contact the Clinical Chemistry Laboratory if there are any qu estions. Chloride 103 98 - 107 mmol/L [facility] LABOR[facility]ORY CO2 21 (L) 22 - 31 mmol/L [facility] LABORATORY Anion Gap 14 5 - 15 mmol/L [facility] LABORATORY Calcium 8.0 (L) 8.5 - 10.5 mg/dL [facility] LABORATORY Comment: result rechecked-trb Estimated GFR 28 (L) >=60 mL/min/1.73 m?? [facility] LABORATORY Comment: This patient's estimated [...] Organization Address City/State/ZIP Code Phon e Number [address] Phosphorus (01/24/2022 12:18 AM EDT) P athologist Signature Phosphorus 4.5 2.5 - 4.5 [facility] mg/dL [facility] LABORATORY Specimen Anatomical Collection Method Collection Time Receive d Time (Source) Location / / Volume Laterality Blood 01/24/2022 12:18 01/24/2022 AM EDT 12:25 AM EDT Resulting Agency Comment Spec In Lab Gela Novak MD CHEMISTRY ORDERABLES Performing Organization Address City/[facility]/ZIP Code Phon e Number [address] Magnesium (01/24/2022 12:18 AM EDT) P athologist Signature Magnesium 0.92 0.69 - 1.07 [facility] mmol/L [facility] LABORATORY Specimen Anatomical Collection Method Collection Time Receive d Time (Source) Location / / Volume Laterality Blood 01/24/2022 12:18 01/24/2022 AM EDT 12:25 AM EDT Resulting Agency Comment Spec In Lab Gela Novak MD CHEMISTRY ORDERABLES Performing Organization Address City/State/[place] [address] (ABNORMAL) Hepatic Function Panel (01/24/2022 12:18 AM EDT) Patholo gist Method Time Signature Total Protein 4.5 (L) 6.1 - 8.0 [facility] g/dL [facility] LABORATORY Albumin 2.2 (L) 3.2 - 5.2 [facility] g/dL [facility] LABORATORY AST 1,181 (H) 0 - 39 [facility] unit/L [facility] LABORATORY ALT 682 (H) 0 - 55 [facility] unit/L [facility] LABORATORY Alk Phos 65 40 - 130 [facility] unit/L [facility] LABORATORY Total 0.5 0.2 - 1.3 [facility] Bilirubin mg/dL [facility] LABORATORY Bili, Direct 0.2 0.0 - 0.3 [facility] mg/dL [facility] LABORATORY Specimen Anatomical Collection Method Collection Time Receive d Time (Source) Location / / Volume Laterality Blood 01/24/2022 12:18 01/24/2022 AM EDT 12:25 AM EDT Resulting Agency Comment Spec In Lab Cristina Hillman APRN CHEMISTRY ORDERABLES Performing Organization Address City/State/ZIP [place] [address] (ABNORMAL) Electrolytes panel (01/24/2022 12:18 AM EDT) athologist Signature Sodium 138 135 - 145 [facility]/L [facility] LAB[facility]ORY Potassium 4.7 3.5 - 5.0 [facility] mmol/L [facility] LAB[facility] Comment: Please note: ??Patients with WBC >100,00 0 may have falsely elevated Potassium levels. ??For accurate Potassium quantif ication in these patients send serum separator tube (gold top) for subsequent determinations. ??Contact the Clinical Chemistry Laboratory if there are any qu estions. Chloride 103 98 - 107 mmol/L [facility] LABOR[facility]ORY CO2 21 (L) 22 - 31 mmol/L [facility] LABOR[facility] Anion Gap 14 5 - 15 mmol/L [facility] LABORATORY Specimen Anatomical Collection Method Collection Time Receive d Time (Source) Location / / Volume Laterality Blood 01/24/2022 12:18 01/24/2022 AM EDT 12:25 AM EDT Resulting Agency Comment Spec In Lab Gemma B Pentland INSULATION WORKER CHEMISTRY ORDERABLES Performing Organization Address City/[facility]/[place] [address] (ABNORMAL) CK (01/24/2022 12:18 AM EDT) P athologist Signature CK, Total 84,860 (H) 0 - 200 [facility] unit/L [facility] LABORATORY Specimen Anatomical Collection Method Collection Time Receive d Time (Source) Location / / Volume Laterality Blood 01/24/2022 12:18 01/24/2022 AM EDT 12:25 AM EDT Resulting Agency Comment Spec In Lab Gemma B Pentland INSULATION WORKER CHEMISTRY ORDERABLES Performing Organization Address City/[facility]/[place] [address] POCT Glucose (01/24/2022 12:17 AM EDT) P athologist Signature POC Glucose 158 65 - 199 [facility] mg/dL [facility] LABOR[facility]ORY Comment: Supplemental ranges: <140 mg/dL before meals <180 mg/dL all other times of the day Specimen Anatomical Collection Method Collection Time Receive d Time (Source) Location / / Volume Laterality Blood 01/24/2022 12:17 01/24/2022 AM EDT 12:17 AM EDT Tex Robles MD POINT OF CARE TEST ORDERABLE S Performing Organization Address City/[facility]/ZIP [place] [address] (ABNORMAL) BLOOD GAS 2 ARTERIAL (01/24/2022 12:16 AM EDT) Analysis Performed At Patho logist Time Signature pH Art 7.48 (H) 7.35 - [facility] 7.45 [facility] LABORATORY pCO2 Art 30 (L) 35 - 45 [facility] mmHg [facility] LABORATORY pO2 Art 70 (L) 85 - 104 [facility] mmHg [facility] LABORATORY HCO3 Art 22.0 20.0 - [facility] 26.0 [facility] mmol/L [facility] LABORATORY BE Art -1.5 -3.0 - 3.0 [facility] mmol/L [facility] LABORATORY Hgb Blood Gas 15.9 13.7 - [facility] 16.5 g/dL [facility] LABORATORY O2HB Art 92.9 (L) 94.0 - [facility] 97.0 % [facility] LABORATORY COHB Art 0.6 % [facility] LABORATORY Comment: Nonsmokers: 0.5-1.5% COHB Smokers: Variable, but usually less than 10% Toxic: 20-30% COHB Lethal: Greater than 60% COHB METHB Art 0.4 <=1.5 % [facility] LABORATORY Na Whole Blood 133 (L) 135 - 145 mmol/L [facility] LABORATORY K Whole Blood 4.5 3.5 - 5.0 mmol/L [facility] LABORATORY Comment: Please note: Patients with WBC >100,000 may have falsely elevated Potassium levels. Contact the Clinical Chemistry L aboratory if there are any questions. ICa Whole Blood 1.11 (L) 1.15 - 1.33 mmol/L [facility] LABORATORY Comment: Note: ??Total bilirubin higher than 20 m g/dL may lead to falsely low ionized calcium. CL Whole Blood 103 98 - 107 mmol/L [facility] LABORATORY Gluc Whole Bld 164 65 - 199 mg/dL [facility] LABORATORY Comment: Diabetes: >=200 mg/dL plus symp toms. Lactate WB 2.4 (H) 0.5 - 2.2 mmol/L [facility] LABORATORY FIO2 Art 21 % [facility] LABORATORY PF Ratio Art [address] [facility] LABORATORY Specimen Anatomical Collection Method Collection Time Receive d Time (Source) Location / / Volume Laterality Blood 01/24/2022 12:16 01/24/2022 AM EDT 12:16 AM EDT Tex Robles MD CHEMISTRY ORDERABLES Performing Organization Address City/[facility]/ZIP Code Phon e Number [address] POCT Glucose (01/23/2022 8:20 PM EDT) P athologist Signature POC Glucose 93 65 - 199 [facility] mg/dL [facility] LABORATORY Comment: Supplemental ranges: <140 mg/dL before meals <180 mg/dL all other times of the day Specimen Anatomical Collection Method Collection Time Receive d Time (Source) Location / / Volume Laterality Blood 01/23/2022 8:20 PM 8:20 EDT PM EDT Tex Robles MD POINT OF CARE TEST ORDERABLE S Performing Organization Address City/[facility]/[place] [address] (ABNORMAL) Blood Gas Arterial ([facility]) (01/23/2022 6:10 PM EDT) Analysis Performed At Patho logist Time Signature pH Art 7.46 (H) 7.35 - [facility] 7.45 [facility] LABORATORY pCO2 Art 31 (L) 35 - 45 [facility] mmHg [facility] LABORATORY pO2 Art 79 (L) 85 - 104 [facility] mmHg [facility] LABORATORY HCO3 Art 21.5 20.0 - [facility] 26.0 [facility] mmol/L [facility] LABORATORY BE Art -2.4 -3.0 - 3.0 [facility] mmol/L [facility] LABORATORY Hgb Blood Gas 17.4 (H) 13.7 - [facility] 16.5 g/dL [facility] LABORATORY O2HB Art 95.5 94.0 - [facility] 97.0 % [facility] LABORATORY COHB Art 0.3 % [facility] LABORATORY Comment: Nonsmokers: ??0.5-1.5% COHB Smokers: ??Variable, but usually less th an 10% Toxic: 20 - 30% COHB Lethal: ??Greater than 60% COHB METHB Art 0.0 <=1.5 % [facility] LABORATORY Na Whole Blood 135 135 - 145 mmol/L [facility] LABORATORY K Whole Blood 5.0 3.5 - 5.0 mmol/L [facility] LABORATORY Comment: Please note: ??Patients with WBC >100,00 0 may have falsely elevated Potassium levels. ??Contact the Clinical Chemistry Laboratory if there are any questions. ICa Whole Blood 1.15 1.15 - 1.33 mmol/L [facility] LABORATORY Comment: Note: ??Total bilirubin higher than 20 m g/dL may lead to falsely low ionized calcium. CL Whole Blood 104 98 - 107 mmol/L [facility] LABORATORY Gluc Whole Bld 144 65 - 199 mg/dL [facility] LABORATORY Comment: Diabetes: >=200 mg/dL plus symp toms. Lactate WB 2.6 (H) 0.5 - 2.2 mmol/L [facility] LABORATORY FIO2 Art 60 % [facility] LABORATORY PF Ratio Art [address] [facility] LABORATORY Specimen Anatomical Collection Method Collection Time Receive d Time (Source) Location / / Volume Laterality Blood Arterial Draw / 01/23/2022 6:10 PM 2021 6:21 Unknown EDT PM EDT Resulting Agency Comment Spec In Lab Angelina Reynoso MD CHEMISTRY ORDERABLES Performing Organization Address City/State/ZIP [place] [address] HIV Screen, 4th Generation ([facility]/CGP/APD/[facility]) (01/23/2022 6:10 PM EDT) Analysis Performed At Patho logist Time Signature HIV-1/2 Ab and Negative Negative [facility] LABORATORY Comment: This 4th Generation HIV test [...] Low Risk of HIV Infection [facility] LABORATORY Specimen Anatomical Collection Method Collection Time Receive d Time (Source) Location / / Volume Laterality Blood 01/23/2022 6:10 PM 2 6:21 EDT PM EDT Resulting Agency Comment Spec In Lab Tex Robles MD IMMUNOLOGY ORDERABLES Performing Organization Address City/[facility]/[place] [address] Hepatitis A Antibody, Total (01/23/2022 6:10 PM EDT) Analysis Performed At Patho logist Time Signature Hepatitis A Ab Negative Negative [facility] LABORATORY Specimen Anatomical Collection Method Collection Time Receive d Time (Source) Location / / Volume Laterality Blood 01/23/2022 6:10 PM 2 6:21 EDT PM EDT Resulting Agency Comment Spec In Lab Tex Robles MD IMMUNOLOGY ORDERABLES Performing Organization Address City/[facility]/[place] [address] (ABNORMAL) CK (01/23/2022 6:10 PM EDT) P athologist Signature CK, Total 158,050 0 - 200 [facility] (H) unit/[facility] LABORATORY Specimen Anatomical Collection Method Collection Time Receive d Time (Source) Location / / Volume Laterality Blood 01/23/2022 6:10 PM 2 6:21 EDT PM EDT Resulting Agency Comment Spec In Lab Cristina Hillman APRN CHEMISTRY ORDERABLES Performing Organization Address City/[facility]/[place] [address] (ABNORMAL) Electrolytes panel (01/23/2022 6:10 PM EDT) P athologist Signature Sodium 136 135 - 145 [facility] mmol/L [facility] LABORATORY Potassium 5.0 3.5 - 5.0 [facility] mmol/L [facility] LABORATORY Comment: Please note: ??Patients with WBC >100,00 0 may have falsely elevated Potassium levels. ??For accurate Potassium quantif ication in these patients send serum separator tube (gold top) for subsequent determinations. ??Contact the Clinical Chemistry Laboratory if there are any qu estions. Chloride 103 98 - 107 mmol/L [facility] LABORATORY CO2 20 (L) 22 - 31 mmol/L [facility] LABORATORY Anion Gap 13 5 - 15 mmol/L [facility] LABORATORY Specimen Anatomical Collection Method Collection Time Receive d Time (Source) Location / / Volume Laterality Blood 01/23/2022 6:10 PM 2 6:21 EDT PM EDT Resulting Agency Comment Spec In Lab Cristina Hillman APRN CHEMISTRY ORDERABLES Performing Organization Address City/[facility]/[place] [address] Phosphorus (01/23/2022 6:10 PM EDT) athologist Signature Phosphorus 4.2 2.5 - 4.5 [facility] LABORATORY Specimen Anatomical Collection Method Collection Time Receive d Time (Source) Location / / Volume Laterality Blood 01/23/2022 6:10 PM 2 6:21 EDT PM EDT Resulting Agency Comment Spec In Lab Angelina Reynoso MD CHEMISTRY ORDERABLES Performing Organization Address City/[facility]/[place] [address] Magnesium (01/23/2022 6:10 PM EDT) athologist Signature Magnesium 0.94 0.69 - 1.07 [facility] mmol/L [facility] LABORATORY Specimen Anatomical Collection Method Collection Time Receive d Time (Source) Location / / Volume Laterality Blood 01/23/2022 6:10 PM 2 6:21 EDT PM EDT Resulting Agency Comment Spec In Lab Angelina Reynoso MD CHEMISTRY ORDERABLES Performing Organization Address City/[facility]/[place] [address] (ABNORMAL) Creatinine (01/23/2022 6:10 PM EDT) Analysis Performed At Patho logist Time Signature Creatinine 2.88 (H) 0.80 - [facility] 1.50 mg/dL [facility] LABORATORY Estimated GFR 29 (L) >=60 [facility] mL/min/1.7 [facility] 3 m?? HOSPITAL LABORATORY Comment: This patient's [...] Organization Address City/State/ZIP Code Phon e Number [facility] [place] [address] (ABNORMAL) Troponin (01/23/2022 6:10 PM EDT) P athologist Signature Troponin-T 0.14 (H) 0.00 - [facility] 0.00 ng/mL [facility] LABORATORY Comment: The 99th percentile for Troponin T is le ss than 0.01 ng/mL, any detectable cTnT concentration using this assay should be considered elevated. According to the third universal definit ion of myocardial infarction the following criteria with a clinical prese ntation consistent with acute myocardial ischemia meets the diagnosis for a myocardial infarction (VA). Detection of a rise and/or fall of [...] additional sample may be indicated. Reference: Third [place] Definition of Myocardial Infarction. Journal of the [place] [employer] 2012;60:1581-98 Specimen Anatomical Collection Method Collection Time Receive d Time (Source) Location / / Volume Laterality Blood 01/23/2022 6:10 PM 6:21 EDT PM EDT Resulting Agency Comment Spec In Lab Cristina Hillman INSULATION WORKER CHEMISTRY ORDERABLES Performing Organization Address City/State/ZIP Code Phon e Number [place] [id number] XR Chest One View [...] who have questions please contact the health care associate that requested your imaging first. [...] ho have questions please contact the health care associate that requested your imaging first. Tex Travis HARTLEY IMG DX ORDERABLES (ABNORMAL) Calcium Ionized Whole Blood, HONORIO (01/23/2022 3:12 PM EDT) Analysis Performed At Patho logist Time Signature pH Honorio 7.42 7.32 - [facility] 7.42 [facility] ICa Whole 1.13 (L) 1.15 - [facility] Blood 1.33 [facility] mmol/L HOSPITAL LABORATORY Comment: Note: ??Total bilirubin [...] Organization Address City/State/[place] [address] POCT Glucose (01/23/2022 3:03 PM EDT) P athologist Signature POC Glucose 145 65 - 199 [facility] mg/dL [facility] Comment: Supplemental ranges: <140 mg/dL before meals <180 mg/dL all other times of the day Specimen Anatomical Collection Method Collection Time Receive d Time (Source) Location / / Volume Laterality Blood 01/23/2022 3:03 PM 2 3:03 EDT PM EDT Tex Robles MD POINT OF CARE TEST ORDERABLE S Performing Organization Address City/[facility]/[place] [address] XR Tibia Fibula Left [...] who have questions please contact the health care associate that requested your imaging first. [...] ho have questions please contact the health care associate that requested your imaging first. Tex Robles IMG DX ORDERABLES XR Femur 2 views [...] who have questions please contact the health care associate that requested your imaging first. [...] ho have questions please contact the health care associate that requested your imaging first. Texbossman Robles MD IMG DX ORDERABLES MRSA PCR (01/23/2022 12:47 PM EDT) [facility] Method Time Signature MRSA Result Negative Negative [facility] MRSA Interp Negative for methicillin-resistant Staphylococcus aureus (MRSA) [facility] This test was performed using the GeneXpert?? Dx System an d the Xpert MRSA MEMORIAL Assay. The MRSA target DNA was not detec karina. The sample processing control and HOSPITAL probe check were valid. The performance of this test was determined by the [facility] Molecular Pathology Laboratory. It has been maximus red by the U.S. Food and Drug Administration for clinical use. Comment: [VERIFIED DATE]01.25.22 Verified By:Nora Shay (Electronic Signature) Specimen (Source) Anatomical Collection Method Collection Time Re ceived Time Location / / Volume Laterality Nasopharyngeal Swab 01/23/2022 12:47 06/2 12/2021 PM EDT 12:37 PM EDT Resulting Agency Comment Spec In Lab Tex Robles MD MICROBIOLOGY - GENERAL ORDER JT Performing Organization Address City/State/ZIP [place] [address] (ABNORMAL) BLOOD GAS 2 ARTERIAL (01/23/2022 11:56 AM EDT) Analysis Performed At Patho logist Time Signature pH Art 7.43 7.35 - [facility] 7.45 [facility] pCO2 Art 32 (L) 35 - 45 [facility] mmHg [facility] pO2 Art 86 85 - 104 [facility] LABORATORY HCO3 Art 20.8 20.0 - [facility] 26.0 [facility] mmol/L [facility] LABORATORY BE Art -3.5 (L) -3.0 - 3.0 [facility] mmol/L [facility] Hgb Blood Gas 16.1 13.7 - [facility] 16.5 g/dL [facility] O2HB Art 95.6 94.0 - [facility] 97.0 % [facility] COHB Art 0.2 % [facility] Comment: Nonsmokers: 0.5-1.5% COHB Smokers: Variable, but usually less than 10% Toxic: 20-30% COHB Lethal: Greater than 60% COHB METHB Art 0.4 <=1.5 % [facility] Na Whole Blood 137 135 - 145 mmol/L [facility] K Whole Blood 5.5 (H) 3.5 - 5.0 mmol/L [facility] Comment: Please note: Patients with WBC >100,000 may have falsely elevated Potassium levels. Contact the Clinical Chemistry L aboratory if there are any questions. ICa Whole Blood 1.04 (L) 1.15 - 1.33 mmol/L [facility] Comment: Note: ??Total bilirubin higher than 20 m g/dL may lead to falsely low ionized calcium. CL Whole Blood 104 98 - 107 mmol/L [facility] Gluc Whole Bld 144 65 - 199 mg/dL [facility] LAB[facility] Comment: Diabetes: >=200 mg/dL plus symp toms. Lactate WB 2.7 (H) 0.5 - 2.2 mmol/L [facility] FIO2 Art 60 % [facility] PF Ratio Art [address] [facility] Specimen Anatomical Collection Method Collection Time Receive d Time (Source) Location / / Volume Laterality Blood 01/23/2022 11:56 01/23/2022 AM EDT 11:56 AM EDT Tex Robles MD CHEMISTRY ORDERABLES Performing Organization Address City/[facility]/ZIP Code Phon e Number [address] Hepatitis B Surface Antigen (01/23/2022 11:50 AM EDT) Analysis Performed At Patho logist Time Signature HepB Surface Negative Negative [facility] LABORATORY Specimen Anatomical Collection Method Collection Time Receive d Time (Source) Location / / Volume Laterality Blood 01/23/2022 11:50 01/23/2022 AM EDT 12:00 PM EDT Resulting Agency Comment Spec In Lab Agnieszka López APRN CHEMISTRY ORDERABLES Performing Organization Address City/[facility]/ZIP Code Phon e Number [address] Hepatitis B DNA, quantitative, PCR (01/23/2022 11:50 AM EDT) Component Value Ref Test Analysis Performed At Patholo gist Range Method Time Signature Hepatitis B Result: <10 IU/mL (Target Not Detected) MANDO RAMESH, Indication for Study: HBV Infection [facility] Analysis: Mullins Elvinnity m HBV assay is an in vi tro polymerase chain reaction LABORATORY (PCR) assay for the quantification of Hepatitis B Virus (HBV ) DNA in human plasma (EDTA) from chronically HBV-infected individuals. Sample: plasma Method: Mullins RealTime HBV Assay Linear Range: 10 IU/mL ? 1,000,000,000 IU/mL Note: The Linkdex Alinity m HBV Assay has been approved by the U.S. Food and Drug Administration. Specimen Anatomical Collection Method Collection Time Receive d Time (Source) Location / / Volume Laterality Blood 01/23/2022 11:50 01/25/2022 8:53 AM EDT AM EDT Resulting Agency Comment Spec In Lab Agnieszka López KATERYNA CHEMISTRY ORDERABLES Performing Organization Address City/[facility]/[place] [address] Hepatitis B Core Antibody, Total (01/23/2022 11:50 AM EDT) Analysis Performed At [facility] logist Time Signature Hep B Core Ab Negative Negative [facility] Specimen Anatomical Collection Method Collection Time Receive d Time (Source) Location / / Volume Laterality Blood 01/23/2022 11:50 01/23/2022 AM EDT 12:00 PM EDT Resulting Agency Comment Spec In Lab Agnieszka López KATERYNA CHEMISTRY ORDERABLES Performing Organization Address City/State/[place] [address] (ABNORMAL) Lower Respiratory Culture Tracheal Aspirate (01/23/2022 11:50 AM EDT) Component Value Ref Test Analysis Performed At [facility] gist Range Method Time Signature Lower Many Staphylococcus aureus MAR Y Respiratory Few mixed bacterial morphoty pes suggestive of normal upper respiratory yessy MIMS Culture () [facility] Gram Stain Many Neutrophils J[facility] No squamous epithelial cells [facility] Moderate Gram Positive Cocci [facility]ORY Organism Staphylococcus JOSH aureus (A) [facility] LABOR[facility] Specimen Anatomical Collection Method Collection Time [...] Comment: Gentamicin is not a ppropriate for [place]-therapy. Staphylococcus aureus Oxacillin VITEK 2 METHOD Sensitive [...] - GENERAL ORDER JT Performing Organization Address City/[facility]/ZIP Code Phon e Number [address] (ABNORMAL) Creatinine (01/23/2022 11:30 AM EDT) Analysis Performed At Patho logist Time Signature Creatinine 3.56 (H) 0.80 - JOSH MANDO 1.50 mg/dL [facility] Estimated GFR 23 (L) >=60 [facility] mL/min/1.7 [facility] 3 ? [facility] LABORATORY Comment: This patient's [...] Reynoso MD CHEMISTRY ORDERABLES Performing Organization Address City/[facility]/[place] [address] (ABNORMAL) Phosphorus (01/23/2022 11:30 AM EDT) P athologist Signature Phosphorus 6.8 (H) 2.5 - 4.5 [facility] mg/dL [facility] Specimen Anatomical Collection Method Collection Time Receive d Time (Source) Location / / Volume Laterality Blood 01/23/2022 11:30 01/23/2022 AM EDT 11:40 AM EDT Resulting Agency Comment Spec In Lab Angelina Reynoso MD CHEMISTRY ORDERABLES Performing Organization Address City/[facility]/ZIP Code Phon e Number [address] Magnesium (01/23/2022 11:30 AM EDT) P athologist Signature Magnesium 0.86 0.69 - 1.07 [facility] mmol/L [facility] Specimen Anatomical Collection Method Collection Time Receive d Time (Source) Location / / Volume Laterality Blood 01/23/2022 11:30 01/23/2022 AM EDT 11:40 AM EDT Resulting Agency Comment Spec In Lab Angelina Reynoso MD CHEMISTRY ORDERABLES Performing Organization Address City/[facility]/[place] [address] (ABNORMAL) Electrolytes panel (01/23/2022 11:30 AM EDT) P athologist Signature Sodium 142 135 - 145 [facility] mmol/L [facility] Potassium 5.6 (H) 3.5 - 5.0 [facility] mmol/L [facility] Comment: Please note: ??Patients with WBC >100,00 0 may have falsely elevated Potassium levels. ??For accurate Potassium quantif ication in these patients send serum separator tube (gold top) for subsequent determinations. ??Contact the Clinical Chemistry Laboratory if there are any qu estions. Chloride 107 98 - 107 mmol/L [facility] CO2 19 (L) 22 - 31 mmol/L [facility] Anion Gap 16 (H) 5 - 15 mmol/L [facility] LABOR[facility]ORY Specimen Anatomical Collection Method Collection Time Receive d Time (Source) Location / / Volume Laterality Blood 01/23/2022 11:30 01/23/2022 AM EDT 11:35 AM EDT Resulting Agency Comment Spec In Lab Gemma B Pentland INSULATION WORKER CHEMISTRY ORDERABLES Performing Organization Address City/State/ZIP [place] [address] (ABNORMAL) CK (01/23/2022 11:30 AM EDT) athologist Signature CK, Total 146,810 0 - 200 [facility] VELASQUEZMANDO (H) unit/L [facility] Specimen Anatomical Collection Method Collection Time Receive d Time (Source) Location / / Volume Laterality Blood 01/23/2022 11:30 01/23/2022 AM EDT 11:35 AM EDT Resulting Agency Comment Spec In Lab Gemma B Pentland INSULATION WORKER CHEMISTRY ORDERABLES Performing Organization Address City/State/ZIP [place] [address] (ABNORMAL) Troponin (01/23/2022 11:30 AM EDT) athologist Signature Troponin-T 0.24 (H) 0.00 - [facility] 0.00 ng/mL [facility] Comment: The 99th percentile for Troponin T is le ss than 0.01 ng/mL, any detectable cTnT concentration using this assay should be considered elevated. According to the third universal definit ion of myocardial infarction the following criteria with a clinical prese ntation consistent with acute myocardial ischemia meets the diagnosis for a myocardial infarction (VA). Detection of a rise and/or fall of [...] additional sample may be indicated. Reference: Third [place] Definition of Myocardial Infarction. Journal of the [place] [employer] 2012;60:1581-98 Specimen Anatomical Collection Method Collection Time Receive d Time (Source) Location / / Volume Laterality Blood 01/23/2022 11:30 01/23/2022 AM EDT 11:35 AM EDT Resulting Agency Comment Spec In Lab Cristina Hillman APRN CHEMISTRY ORDERABLES Performing Organization Address City/State/[place] [address] POCT Glucose (01/23/2022 11:01 AM EDT) P athologist Signature POC Glucose 119 65 - 199 [facility] mg/dL [facility] Comment: Supplemental ranges: <140 mg/dL before meals <180 mg/dL all other times of the day Specimen Anatomical Collection Method Collection Time Receive d Time (Source) Location / / Volume Laterality Blood 01/23/2022 11:01 01/23/2022 AM EDT 11:01 AM EDT Tex Robles MD POINT OF CARE TEST ORDERABLE S Performing Organization Address City/State/[place] [address] (ABNORMAL) BLOOD GAS 2 ARTERIAL (01/23/2022 9:18 AM EDT) Analysis Performed At Patho logist Time Signature pH Art 7.40 7.35 - [facility] 7.45 [facility] pCO2 Art 37 35 - 45 [facility] mmHg [facility] pO2 Art 61 (L) 85 - 104 [facility] mmHg [facility] HCO3 Art 22.3 20.0 - [facility] 26.0 [facility] mmol/L [facility] LABORATORY BE Art -2.6 -3.0 - 3.0 [facility] mmol/L [facility] Hgb Blood Gas 15.3 13.7 - [facility] 16.5 g/dL [facility] O2HB Art 91.2 (L) 94.0 - [facility] 97.0 % [facility] COHB Art 0.3 % [facility] Comment: Nonsmokers: 0.5-1.5% COHB Smokers: Variable, but usually less than 10% Toxic: 20-30% COHB Lethal: Greater than 60% COHB METHB Art 0.3 <=1.5 % [facility] Na Whole Blood 137 135 - 145 mmol/L [facility] K Whole Blood 4.5 3.5 - 5.0 mmol/L [facility] Comment: Please note: Patients with WBC >100,000 may have falsely elevated Potassium levels. Contact the Clinical Chemistry L aboratory if there are any questions. ICa Whole Blood 1.23 1.15 - 1.33 mmol/L [facility] Comment: Note: ??Total bilirubin higher than 20 m g/dL may lead to falsely low ionized calcium. CL Whole Blood 105 98 - 107 mmol/L [facility] Gluc Whole Bld 117 65 - 199 mg/dL [facility] LABOR[facility]ORY Comment: Diabetes: >=200 mg/dL plus symp toms. Lactate WB 4.9 (Critical) 0.5 - 2.2 mmol/L [facility] Comment: Noted by electrical and instrument mechanic. FIO2 Art 62 % [facility] PF Ratio Art [address] [facility] Temp Art 36.5 Celsius [facility]ORY Specimen Anatomical Collection Method Collection Time Receive d Time (Source) Location / / Volume Laterality Blood 01/23/2022 9:18 AM 9:18 EDT AM EDT Tex Robles MD CHEMISTRY ORDERABLES Performing Organization Address City/State/ZIP [place] [address] (ABNORMAL) BLOOD GAS 2 ARTERIAL (01/23/2022 8:37 AM EDT) Analysis Performed At Patho logist Time Signature pH Art 7.40 7.35 - [facility] 7.45 [facility] pCO2 Art 33 (L) 35 - 45 [facility] mmHg [facility] pO2 Art 97 85 - 104 [facility] LABORATORY HCO3 Art 20.3 20.0 - [facility] 26.0 [facility] mmol/L [facility] LABORATORY BE Art -4.4 (L) -3.0 - 3.0 [facility] mmol/L [facility] Hgb Blood Gas 15.3 13.7 - [facility] 16.5 g/dL [facility] O2HB Art 96.8 94.0 - [facility] 97.0 % [facility] COHB Art 0.4 % [facility] Comment: Nonsmokers: 0.5-1.5% COHB Smokers: Variable, but usually less than 10% Toxic: 20-30% COHB Lethal: Greater than 60% COHB METHB Art 0.3 <=1.5 % [facility] Na Whole Blood 135 135 - 145 mmol/L [facility] K Whole Blood 4.0 3.5 - 5.0 mmol/L [facility] Comment: Please note: Patients with WBC >100,000 may have falsely elevated Potassium levels. Contact the Clinical Chemistry L aboratory if there are any questions. ICa Whole Blood 1.11 (L) 1.15 - 1.33 mmol/L [facility] Comment: Note: ??Total bilirubin higher than 20 m g/dL may lead to falsely low ionized calcium. CL Whole Blood 105 98 - 107 mmol/L [facility] Gluc Whole Bld 141 65 - 199 mg/dL [facility]ORY Comment: Diabetes: >=200 mg/dL plus symp toms. Lactate WB 5.0 (Critical) 0.5 - 2.2 mmol/L [facility] Comment: Noted by electrical and instrument mechanic. Specimen Anatomical Collection Method Collection Time Receive d Time (Source) Location / / Volume Laterality Blood 01/23/2022 8:37 AM 8:37 EDT AM EDT Tex Robles MD CHEMISTRY ORDERABLES Performing Organization Address City/State/ZIP [place] [address] (ABNORMAL) BLOOD GAS 2 ARTERIAL (01/23/2022 7:59 AM EDT) Analysis Performed At Patho logist Time Signature pH Art 7.34 (L) 7.35 - [facility] 7.45 [facility] pCO2 Art 34 (L) 35 - 45 [facility] pO2 Art 105 (H) 85 - 104 [facility] LABORATORY HCO3 Art 18.1 (L) 20.0 - [facility] 26.0 [facility] mmol/[facility] LABORATORY BE Art -7.7 (L) -3.0 - 3.0 [facility] mmol/L [facility] Hgb Blood Gas 16.6 (H) 13.7 - [facility] 16.5 g/dL [facility] O2HB Art 97.0 94.0 - [facility] 97.0 % [facility] COHB Art 0.3 % [facility] Comment: Nonsmokers: 0.5-1.5% COHB Smokers: Variable, but usually less than 10% Toxic: 20-30% COHB Lethal: Greater than 60% COHB METHB Art 0.0 <=1.5 % [facility] Na Whole Blood 140 135 - 145 mmol/L [facility] K Whole Blood 4.5 3.5 - 5.0 mmol/L [facility] Comment: Please note: Patients with WBC >100,000 may have falsely elevated Potassium levels. Contact the Clinical Chemistry L aboratory if there are any questions. ICa Whole Blood 0.91 (Critical) 1.15 - 1.33 mmol/L [facility] Comment: Noted by electrical and instrument mechanic. Note: ??Total bilirubin higher than 20 m g/dL may lead to falsely low ionized calcium. CL Whole Blood 103 98 - 107 mmol/L [facility] Gluc Whole Bld 179 65 - 199 mg/dL [facility]OR[facility]ORY Comment: Diabetes: >=200 mg/dL plus symp toms. Lactate WB 4.4 (Critical) 0.5 - 2.2 mmol/L [facility] Comment: Noted by electrical and instrument mechanic. Specimen Anatomical Collection Method Collection Time Receive d Time (Source) Location / / Volume Laterality Blood 01/23/2022 7:59 AM 7:59 EDT AM EDT Tex Robles MD CHEMISTRY ORDERABLES Performing Organization Address City/State/ZIP [place] [address] (ABNORMAL) POCT Glucose (01/23/2022 7:28 AM EDT) P athologist Signature POC Glucose 215 (H) 65 - 199 [facility] mg/dL [facility] Comment: Supplemental ranges: <140 mg/dL before meals <180 mg/dL all other times of the day Specimen Anatomical Collection Method Collection Time Receive d Time (Source) Location / / Volume Laterality Blood 01/23/2022 7:28 AM 7:28 EDT AM EDT Tex Robles MD POINT OF CARE TEST ORDERABLE S Performing Organization Address City/State/ZIP Code Phon e Number [place] [id number]OS[address] Drive (ABNORMAL) Blood Gas Arterial ([facility]) (01/23/2022 7:21 AM EDT) Analysis Performed At Patho logist Time Signature pH Art 7.37 7.35 - [facility] 7.45 [facility] pCO2 Art 28 (L) 35 - 45 [facility] LABORATORY pO2 Art 96 85 - 104 [facility] LABORATORY HCO3 Art 15.7 (L) 20.0 - [facility] 26.0 [facility] mmol/[facility] LABORATORY BE Art -9.6 (L) -3.0 - 3.0 [facility] mmol/L [facility] Hgb Blood Gas 16.4 13.7 - [facility] 16.5 g/dL [facility] O2HB Art 96.6 94.0 - [facility] 97.0 % [facility] COHB Art 0.3 % [facility] Comment: Nonsmokers: ??0.5-1.5% COHB Smokers: ??Variable, but usually less th an 10% Toxic: 20 - 30% COHB Lethal: ??Greater than 60% COHB METHB Art 0.2 <=1.5 % [facility] Na Whole Blood 137 135 - 145 mmol/L [facility] K Whole Blood 4.4 3.5 - 5.0 mmol/L [facility] Comment: Please note: ??Patients with WBC >100,00 0 may have falsely elevated Potassium levels. ??Contact the Clinical Chemistry Laboratory if there are any questions. ICa Whole Blood 0.90 (Critical) 1.15 - 1.33 mmol/L [facility] Comment: Called by: sharmin, Read back by: willie webb, Date/Time:01/23/22 07:38. Note: ??Total bilirubin higher than 20 m g/dL may lead to falsely low ionized calcium. CL Whole Blood 105 98 - 107 mmol/L [facility] Gluc Whole Bld 203 (H) 65 - 199 mg/dL [facility] LABOR[facility]ORY Comment: Diabetes: >=200 mg/dL plus symp toms. Lactate WB 5.5 (Critical) 0.5 - 2.2 mmol/L [facility] Comment: Called by: sharmin, Read back by: pramod alfaro, Date/Time:01/23/22 07:38. FIO2 Art 30 % [facility] PF Ratio Art [address] [facility] Specimen Anatomical Collection Method Collection Time Receive d Time (Source) Location / / Volume Laterality Blood Arterial Draw / 01/23/2022 7:21 AM 2021 7:28 Unknown EDT AM EDT Resulting Agency Comment Spec In Lab Cristina Hillman APRN CHEMISTRY ORDERABLES Performing Organization Address City/[facility]/[place] [address] (ABNORMAL) Phosphorus (01/23/2022 7:20 AM EDT) P athologist Signature Phosphorus 6.1 (H) 2.5 - 4.5 [facility] mg/dL [facility] Specimen Anatomical Collection Method Collection Time Receive d Time (Source) Location / / Volume Laterality Blood 01/23/2022 7:20 AM 7:27 EDT AM EDT Resulting Agency Comment Spec In Lab Angelina Reynoso MD CHEMISTRY ORDERABLES Performing Organization Address City/State/ZIP Code Phon e Number [address] Magnesium (01/23/2022 7:20 AM EDT) P athologist Signature Magnesium 0.81 0.69 - 1.07 [facility] mmol/L [facility] Specimen Anatomical Collection Method Collection Time Receive d Time (Source) Location / / Volume Laterality Blood 01/23/2022 7:20 AM 2 7:27 EDT AM EDT Resulting Agency Comment Spec In Lab Angelina Reynoso MD CHEMISTRY ORDERABLES Performing Organization Address City/[facility]/ZIP Code Phon e Number [address] (ABNORMAL) Creatinine (01/23/2022 7:20 AM EDT) Analysis Performed At Patho logist Time Signature Creatinine 3.84 (H) 0.80 - [place]H [place] 1.50 mg/dL [facility] Estimated GFR 21 (L) >=60 [place] mL/min/1.7 [facility] 3 ?? [facility] Comment: This patient's [...] Organization Address City/State/ZIP Code Phon e Number [address] (ABNORMAL) Electrolytes panel (01/23/2022 7:20 AM EDT) athologist Signature Sodium 141 135 - 145 JOSH [place]AND[place] mmol/L [facility] Potassium 4.6 3.5 - 5.0 [facility] mmol/L [facility] Comment: result rechecked-brian Please note: ??Patients with WBC >100,00 0 may have falsely elevated Potassium levels. ??For accurate Potassium quantif ication in these patients send serum separator tube (gold top) for subsequent determinations. ??Contact the Clinical Chemistry Laboratory if there are any qu estions. Chloride 106 98 - 107 mmol/L [facility] CO2 14 (L) 22 - 31 mmol/L [facility] Anion Gap 21 (H) 5 - 15 mmol/L [facility] Specimen Anatomical Collection Method Collection Time Receive d Time (Source) Location / / Volume Laterality Blood 01/23/2022 7:20 AM 7:27 EDT AM EDT Resulting Agency Comment Spec In Lab Angelina Reynoso MD CHEMISTRY ORDERABLES Performing Organization Address City/State/ZIP [place] [address] XR Hand Min 3 [...] who have questions please contact the health care associate that requested your imaging first. [...] ho have questions please contact the health care associate that requested your imaging first. Tex Travis [...] who have questions please contact the health care associate that requested your imaging first. ? Narrative 01/23/2022 6:56 AM EDT EXAMINATION: XR [...] iaphragm, the tip is not within the [id number]-il-[id number]. Upper retrocardiac opacity corresponding to partial collapse [...] iaphragm, the tip is not within the bhanc-ga-dktk. Upper retrocardiac opacity corresponding to partial collapse [...] ho have questions please contact the health care associate that requested your imaging first. Tex Travis [...] who have questions please contact the health care associate that requested your imaging first. [...] ho have questions please contact the health care associate that requested your imaging first. Tex Robles MD IMG DX ORDERABLES CENTRAL LINE (01/23/2022 6:25 [...] yes Patient location at time of insertion: [address] Procedure Comments: Prior to dilation wire was visualized vi a ultrasound entering large, collapsible vessel in both transv erse and longitudinal planes. All ports had positive blood ret urn and were able to be flushed without difficulty. Cristina Hillman APRN Cristina Hillman APRN PROCEDURE/MINOR SURGICAL ORD ERABLES (ABNORMAL) Electrolytes panel (01/23/2022 6:00 AM EDT) athologist Signature Sodium 140 135 - 145 [facility] mmol/L [facility] Potassium 5.9 (H) 3.5 - 5.0 [facility] mmol/L [facility] Comment: Please note: ??Patients with WBC >100,00 0 may have falsely elevated Potassium levels. ??For accurate Potassium quantif ication in these patients send serum separator tube (gold top) for subsequent determinations. ??Contact the Clinical Chemistry Laboratory if there are any qu estions. Chloride 102 98 - 107 mmol/L [facility] CO2 15 (L) 22 - 31 mmol/L [facility] Anion Gap 23 (H) 5 - 15 mmol/L [facility] Specimen Anatomical Collection Method Collection Time Receive d Time (Source) Location / / Volume Laterality Blood 01/23/2022 6:00 AM 2 6:08 EDT AM EDT Resulting Agency Comment Spec In Lab Cristina Hillman APRN CHEMISTRY ORDERABLES Performing Organization Address City/State/ZIP [place] [address] (ABNORMAL) CK (01/23/2022 6:00 AM EDT) athologist Signature CK, Total 158,930 0 - 200 JOSH MAND[place] (H) unit/L [facility] Specimen Anatomical Collection Method Collection Time Receive d Time (Source) Location / / Volume Laterality Blood 01/23/2022 6:00 AM 2 6:08 EDT AM EDT Resulting Agency Comment Spec In Lab Gemma B Pentland INSULATION WORKER CHEMISTRY ORDERABLES Performing Organization Address City/State/ZIP [place] [address] (ABNORMAL) Troponin (01/23/2022 6:00 AM EDT) P athologist Signature Troponin-T 0.35 (H) 0.00 - JOSH [place] 0.00 ng/mL [facility] Comment: The 99th percentile for Troponin T is le ss than 0.01 ng/mL, any detectable cTnT concentration using this assay should be considered elevated. According to the third universal definit ion of myocardial infarction the following criteria with a clinical prese ntation consistent with acute myocardial ischemia meets the diagnosis for a myocardial infarction (VA). Detection of a rise and/or fall of [...] additional sample may be indicated. Reference: Third [place] Definition of Myocardial Infarction. Journal of the [place] [employer] 2012;60:1581-98 Specimen Anatomical Collection Method Collection Time Receive d Time (Source) Location / / Volume Laterality Blood 01/23/2022 6:00 AM 2 6:08 EDT AM EDT Resulting Agency Comment Spec In Lab Gemma B Pentland INSULATION WORKER CHEMISTRY ORDERABLES Performing Organization Address City/[facility]/ZIP [place] [address] Blood culture (01/23/2022 6:00 AM EDT) Patholo gist Method Time Signature Blood Culture No growth JOSH GILMORE at 5 days. [facility] Specimen Anatomical Collection Method Collection Time Receive d Time (Source) Location / / Volume Laterality Blood 01/23/2022 6:00 AM 6:18 EDT AM EDT Comment: unknown Resulting Agency Comment Spec In Lab Gemma B Pentland INSULATION WORKER MICROBIOLOGY - BLOOD ORDERAB LES Performing Organization Address City/State/[place] [address] (ABNORMAL) POCT Glucose (01/23/2022 4:58 AM EDT) athologist Signature POC Glucose 205 (H) 65 - 199 [facility] MANDO mg/dL [facility] Comment: Supplemental ranges: <140 mg/dL before meals <180 mg/dL all other times of the day Specimen Anatomical Collection Method Collection Time Receive d Time (Source) Location / / Volume Laterality Blood 01/23/2022 4:58 AM 2 4:58 EDT AM EDT Tex Robles MD POINT OF CARE TEST ORDERABLE S Performing Organization Address City/[facility]/[place] [address] Hepatitis B Surface Antibody (01/23/2022 4:49 AM EDT) athologist Signature HepB Surface 418.0 IU/L [facility] Ab Quant [facility] Comment: HepB Surface Ab Quant: Unvaccinated: < 8.5 IU/L Vaccinated: > 11.5 IU/L HepB Surface Ab Positive [facility] Comment: Patient is considered to be immune to HB V infection. Expected Results: Vaccinated: Positive Unvaccinated: Negative Specimen Anatomical Collection Method Collection Time Receive d Time (Source) Location / / Volume Laterality Blood 01/23/2022 4:49 AM 2 4:56 EDT AM EDT Resulting Agency Comment Spec In Lab Gemma B Pentland INSULATION WORKER IMMUNOLOGY ORDERABLES Performing Organization Address City/State/ZIP [place] [address] Hepatitis C Antibody (01/23/2022 4:49 AM EDT) Analysis Performed At Patho logist Time Signature Hepatitis C Ab Negative Negative [facility] Specimen Anatomical Collection Method Collection Time Receive d Time (Source) Location / / Volume Laterality Blood 01/23/2022 4:49 AM 2 4:56 EDT AM EDT Resulting Agency Comment Spec In Lab Gemtn B [facility] INSULATION WORKER IMMUNOLOGY ORDERABLES Performing Organization Address City/[facility]/[place] [address] (ABNORMAL) Potassium (01/23/2022 4:49 AM EDT) P athologist Signature Potassium 6.6 3.5 - 5.0 [facility] (Critical) mmol/L [facility] Comment: Called by: kvng, Read [...] EDT Resulting Agency Comment Spec In Lab [facility] B [facility] INSULATION WORKER CHEMISTRY ORDERABLES Performing Organization Address City/[facility]/ZIP [place] [address] (ABNORMAL) Hemogram (01/23/2022 4:49 AM EDT) Patholo gist Method Time Signature WBC 12.1 (H) 4.0 - 9.5 [facility] x10(3)/[facility] LABORATORY RBC 5.49 4.58 - [facility] 5.54 [facility] x10(6)/[facility] LABORATORY Hemoglobin 17.6 (H) 13.7 - JOSH GILMORE 16.5 g/dL [facility] Hematocrit 50.3 (H) 40.5 - JOSH [place] 48.5 % [facility] MCV 91.6 82.9 - JOSH MAND[place] 93.1 [facility] LABORATORY MCH 32.1 27.5 - JOSH [place] 32.1 pg [facility] MCHC 35.0 32.0 - [place] 35.7 g/dL [facility] Platelets 184 145 - 357 JOSH VELASQUEZMANDO x10(3)/[facility] LABORATORY RDWSD 41.9 36.0 - JOSH [place] 45.0 [facility] RDWCV 12.3 11.4 - JOSH [place] 13.8 % [facility] MPV 9.7 7.6 - 12.9 JOSH GILMORE [facility] LABORATORY nRBC % Auto 0.2 % [facility] nRBC Abs Auto 0.030 (H) 0.000 - JOSH [place] 0.000 [facility] x10(3)/[facility] LABORATORY Specimen Anatomical Collection Method Collection Time Receive d Time (Source) Location / / Volume Laterality Blood 01/23/2022 4:49 AM 4:56 EDT AM EDT Resulting Agency Comment Spec In Lab Cristina Hillman APRN HEMATOLOGY ORDERABLES Performing Organization Address City/State/ZIP [place] [address] Upper Extremity w [...] who have questions please contact the health care associate that requested your imaging first. [...] ho have questions please contact the health care associate that requested your imaging first. Cristina Hillman APRN IMG CT ORDERABLES CT [...] who have questions please contact the health care associate that requested your imaging first. ? Narrative 01/23/2022 4:39 AM EDT EXAMINATION: CT CHEST WO CONTRAST (GENERIC) CLINICAL HISTORY: Aspiration Hypoxia jbl-hv-[id number] to XR imaging. Presenting with cardiac arrest s/p ROSC, unclear etiology. TECHNIQUE: Noncontrast CT chest. Absence of intravenous contrast renders suboptimal assessment of potential paren chymal and mediastinal masses as well as hilar lymphadenopathy, and blood vessels and cardiovascular structures. COMPARISON: None Procedure Note Rex Addison MD - 01/23/2022 EXAMINATION: CT CHEST WO CONTRAST (GENER IC) CLINICAL HISTORY: Aspiration Hypoxia [id number]-tu-nivbpckyox to XR imaging. Presenting with cardiac arrest [...] ho have questions please contact the health care associate that requested your imaging first. [facility] ORDERABLES CT Lower Extremity wo Contrast [...] who have questions please contact the health care associate that requested your imaging first. [...] ho have questions please contact the health care associate that requested your imaging first. Jaquelintn B Rafy INSULATION WORKER IMG CT ORDERABLES CT Head wo Contrast [...] who have questions please contact the health care associate that requested your imaging first. [...] ho have questions please contact the health care associate that requested your imaging first. Cristina Hillman APRN IMKaryn CT ORDERABLES Insert Arterial Line (01/23/2022 2:16 [...] p lanned procedure. ?? Hand Hygiene: The glass inserter did perform h and hygiene prior to [...] ease. Good wave form. Procedure Comments: N/A Cristina Hillman APRN PROCEDURE/MINOR SURGICAL ORD ERABLES XR Abdomen 1 [...] who have questions please contact the health care associate that requested your imaging first. ? Narrative 01/23/2022 8:39 AM EDT EXAMINATION: XR [...] ho have questions please contact the health care associate that requested your imaging first. Gemma B Pentland INSULATION WORKER IMG DX ORDERABLES XR Chest One View [...] who have questions please contact the health care associate that requested your imaging first. [...] body and tip not included in the xsata-uo-odw w. No focal consolidation.No sizable pleura l [...] body and tip not included in the oaosz-ht-kys w. No focal consolidation.No sizable pleura l [...] ho have questions please contact the health care associate that requested your imaging first. Gemma B Pentland INSULATION WORKER IMG DX ORDERABLES APTT (01/23/2022 1:55 AM EDT) P athologist Signature PTT 25 25 - 37 sec [facility] Comment: The PTT is [...] Robles MD HEMATOLOGY ORDERABLES Performing Organization Address City/[facility]/[place] [address] (ABNORMAL) Prothrombin Time (01/23/2022 1:55 AM EDT) P athologist Signature PT 14.4 (H) 9.4 - 12.5 [facility] LABORATORY INR 1.3 [facility] Comment: An INR <2.0 [...] Robles MD HEMATOLOGY ORDERABLES Performing Organization Address City/[facility]/ZIP Code Phon e Number [place] [id number]OS[address] Fibrinogen (01/23/2022 1:55 AM EDT) P athologist Signature Fibrinogen 349 200 - 393 [facility] mg/dL [facility] Comment: A fibrinogen level >100 mg/dL is adequat e for hemostasis in most patients without underlying bleeding disorders. Specimen Anatomical Collection Method Collection Time Receive d Time (Source) Location / / Volume Laterality Blood 01/23/2022 1:55 AM 2 1:59 EDT AM EDT Resulting Agency Comment Spec In Lab Tex Robles MD HEMATOLOGY ORDERABLES Performing Organization Address City/[facility]/ZIP Code Phon e Number [facility] [place] [address] (ABNORMAL) Rapid Drug Screen w/o Confirmation, Urine (01/23/2022 1:45 AM EDT) [facility] Method Time Signature U Barbiturates Presumptive None JOSH Screen Pos (A) Detected [facility] Comment: The barbiturate screen detects barbitura [...] Benzodiazepines Screen Presumptive Pos (A) None Detected [facility] Comment: The benzodiazepines screen [...] U Cocaine Screen None Detected None Detected [facility] Comment: The cocaine metabolites [...] U Methadone Metabolites None Detected None Detected [facility]ATORY Comment: The methadone metabolite screen detects EDDP (major methadone metabolite) at concentrations >100 ng/mL. A ? Presumptive Positive? result indicates that the screening result was positive but has not yet been confirmed by a highly-specific method. As with any screen, occasional false positive re sults from cross-reacting substances may occur. Not for Medico-Legal Purposes. U Opiate Screen None Detected None Detected [facility] Comment: The opiates screen detects opiates at co ncentrations >300 ng/mL. Please note that oxycodone, oxymorphone, fentanyl, tramadol, and other synthetic opioids are not detected by [facility] opiate screen. A ? Presumptive Positive? result indicates that the screening result was positive but has not yet been confirmed by a highly-specific method. As with any screen, occasional false positive re sults from cross-reacting substances may occur. Not for Medico-Legal Purposes. U Cannabinoid Screen None Detected None Detected Ren WEBB [facility] Comment: The marijuana metabolites screen detects the THC metabolite (60-stl-4-carboxy-delta 9-THC) at concen trations >20 ng/mL. A ? Presumptive Positive? result indicates that the screening result was positive but has not yet been confirmed by a highly-specific method. As with any screen, occasional false positive re sults from cross-reacting substances may occur. Not for Medico-Legal Purposes. U Oxycodone Screen Presumptive Pos (A) None Detected [facility] Comment: The oxycodone screen detects oxycodone a nd oxymorphone at concentrations >100 ng/mL. A ? Presumptive Positive? result indicates that the screening result was positive but has not yet been confirmed by a highly-specific method. As with any screen, occasional false positive re sults from cross-reacting substances may occur. Not for Medico-Legal Purposes. U Buprenorphine Screen None Detected None Detected [facility] Comment: The buprenorphine screen detects bupreno rphine at concentrations >5 ng/mL. A ? Presumptive Positive? result indicates that the screening result was positive but has not yet been confirmed by a highly-specific method. As with any screen, occasional false positive re sults from cross-reacting substances may occur. Not for Medico-Legal Purposes. U Fentanyl Screen Presumptive Pos (A) None Detected [facility] Comment: The fentanyl screen detects fentanyl at concentrations >2 ng/mL. A ? Presumptive Positive? result indicates that the screening result was positive but has not yet been confirmed by a highly-specific method. As with any screen, occasional false positive re sults from cross-reacting substances may occur. Not for Medico-Legal Purposes. U Tricyclics Screen None Detected None Detected ASHLEY CAMPO [facility] Comment: The tricyclics screen detects tricyclic [...] U Ethanol Screen None Detected None Detected [facility] Comment: This urine ethanol assay detect s ethanol at concentrations >/= 100 mg/L. U Amphetamines Screen None Detected None Detected [facility] Comment: The amphetamine screen [...] Screen None Detected None Detected Ren WEBB [facility] Comment: No adulteration or dilution of [...] Organization Address City/State/ZIP [place] [address] Rapid Drug Screen, Urine (MEGHNA Request) (01/23/2022 1:45 AM EDT) [facility] Method Time Signature MEGHNA Conf No [facility] LABORATORY MEGHNA Requested See Comment [facility] Comment: Refer to Rapid Drug Screen w/o Confirmation, Urine for results. Specimen Anatomical Collection Method Collection Time Receive d Time (Source) Location / / Volume Laterality Urine 01/23/2022 1:45 AM 2 1:52 EDT AM EDT Resulting Agency Comment Spec In Lab Cristina Hillman INSULATION WORKER URINE ORDERABLES Performing Organization Address City/State/ZIP [place] [address] (ABNORMAL) _Urinalysis with microscopic (01/23/2022 1:30 AM EDT) [facility] Method Time Signature Glucose UA Negative Negative [facility] mg/dL [facility] Protein UA >=300 (A) Negative [facility] Bilirubin UA Moderate (A) Negative [facility] mg/dL [facility] Comment: Clinical correlation required for positi ve Urine Bilirubin results as false positive may occur with some drugs and d rug related products. If a false positive is suspected a serum total bili villaseñor should be considered if clinically indicated. Urobilinogen UA Normal Normal mg/dL [facility] pH UA 6.5 5.0 - 8.0 [facility] Blood UA Large (A) Negative mg/dL [facility] Ketones UA Trace (A) Negative mg/dL [facility] Nitrite UA Positive (A) Negative [facility] Leukocytes UA Negative Negative [facility] LABORATORY Appearance UA Cloudy (A) Clear [facility] Spec [place] UA >=1.030 (A) 1.006 - 1.030 [facility] Color UA Brown (A) [facility] RBC UA 2 0 - 3 /HPF [facility] Comment: Interpret with caution, manual microscopic results are from an unspun specimen. WBC UA <1 0 - 3 /HPF [facility] Comment: Interpret with caution, manual microscopic results are from an unspun specimen. Bacteria UA Many (A) None /HPF [facility] Comment: Interpret with caution, manual microscopic results are from an unspun specimen. Squam Epith UA 1 <=4 /HPF [facility] Comment: Interpret with caution, manual microscopic results are from an unspun specimen. Hyaline Cast UA <1 0 - 2 /LPF [facility] K [facility] Comment: Interpret with caution, manual microscopic results are from an unspun specimen. Amorph Mila UA Many (A) None /HPF [facility] Comment: Interpret with caution, manual microscopic results are from an unspun specimen. Specimen Anatomical Collection Method Collection Time Receive d Time (Source) Location / / Volume Laterality Urine 01/23/2022 1:30 AM 2 1:41 EDT AM EDT Resulting Agency Comment Spec In Lab Gemma B Pentland INSULATION WORKER URINE ORDERABLES Performing Organization Address City/[facility]/[place] [address] Blood culture (01/23/2022 1:26 AM EDT) [facility] [employer] Method Time Signature Blood Culture No growth [facility] at 5 days. [facility] Specimen Anatomical Collection Method Collection Time Receive d Time (Source) Location / / Volume Laterality Blood 01/23/2022 1:26 AM 2 1:38 EDT AM EDT Comment: r wrist Resulting Agency Comment Spec In Lab Gemma B Pentland INSULATION WORKER MICROBIOLOGY - BLOOD ORDERAB LES Performing Organization Address City/[facility]/[place] [address] (ABNORMAL) BLOOD GAS 2 ARTERIAL (01/23/2022 1:25 AM EDT) [employer] Method Time Signature pH Art 7.32 (L) 7.35 - [facility] 7.45 [facility] pCO2 Art 33 (L) 35 - 45 [facility] mmHg [facility] pO2 Art 68 (L) 85 - 104 [facility] mmHg [facility] HCO3 Art 16.8 (L) 20.0 - [facility] 26.0 [facility] mmol/L [facility] BE Art -9.3 (L) -3.0 - 3.0 [facility] mmol/L [facility] Hgb Blood Gas 20.4 13.7 - [facility] (Critical) 16.5 g/dL [facility] Comment: Noted by electrical and instrument mechanic. O2HB Art 92.4 (L) 94.0 - 97.0 % [facility] COHB Art 0.2 % [facility] Comment: Nonsmokers: 0.5-1.5% COHB Smokers: Variable, but usually less than 10% Toxic: 20-30% COHB Lethal: Greater than 60% COHB METHB Art 0.7 <=1.5 % [facility] Na Whole Blood 141 135 - 145 mmol/L [facility] K Whole Blood 5.3 (H) 3.5 - 5.0 mmol/L [facility] Comment: Please note: Patients with WBC >100,000 may have falsely elevated Potassium levels. Contact the Clinical Chemistry L aboratory if there are any questions. ICa Whole Blood 0.97 (L) 1.15 - 1.33 mmol/L [facility] Comment: Note: ??Total bilirubin higher than 20 m g/dL may lead to falsely low ionized calcium. CL Whole Blood 106 98 - 107 mmol/L [facility] Gluc Whole Bld 158 65 - 199 mg/dL [facility] Comment: Diabetes: >=200 mg/dL plus symp toms. Lactate WB 4.1 (Critical) 0.5 - 2.2 mmol/L [facility] Comment: Noted by electrical and instrument mechanic. FIO2 Art 75 % [facility] PF Ratio Art [address] [facility] Specimen Anatomical Collection Method Collection Time Receive d Time (Source) Location / / Volume Laterality Blood 01/23/2022 1:25 AM 2 1:25 EDT AM EDT Tex Robles MD CHEMISTRY ORDERABLES Performing Organization Address City/State/ZIP [place] [address] EKG 12 Lead (01/23/2022 12:46 AM EDT) Component Value Ref Range Test Analysis Performed Pathologis t Method Time At Signature Ventricular rate 147 BPM MUSE SYSTEM Atrial Rate 147 BPM MUSE SYSTEM P-R Interval 130 ms MUSE SYSTEM QRS Duration 84 ms MUSE SYSTEM Q-T Interval 268 ms MUSE SYSTEM QTC Calculated 419 ms MUSE SYSTEM (Bezet) Calculated P Echo 60 degrees MUSE SYSTEM Calculated R Echo 42 degrees MUSE SYSTEM Calculated T Echo 28 degrees MUSE SYSTEM INTERPRETATION Sinus tachycardia [...] 12:46 01/23/2022 AM EDT 12:39 PM EDT Nefsisma B Rafy SPEARSN ECG ORDERABLES Performing Organization Address City/State/ZIP Code Phon e Number MUSE SYSTEM T4, free (01/23/2022 12:45 AM EDT) P athologist Signature Free T4 1.19 0.93 - 1.70 [facility] ng/dL [facility] Comment: Reference Interval (ng/dL): Females: ??First Trimester: 0.97-1.68 ??Second Trimester: 0.77-1.51 ??Third Trimester: 0.77-1.49 Specimen Anatomical Collection Method Collection Time Receive d Time (Source) Location / / Volume Laterality Blood 01/23/2022 12:45 01/23/2022 1:13 AM EDT AM EDT Resulting Agency Comment Spec In Lab Nefsisma B Pentland INSULATION WORKER CHEMISTRY ORDERABLES Performing Organization Address City/State/ZIP [place] [address] Triglyceride (01/23/2022 12:45 AM EDT) P athologist Signature Triglycerides 273 mg/dL [facility] Comment: Average Risk/Lower Risk: <150 mg/dL Borderline High Risk: 150-199 mg/dL High Risk: 200-499 mg/dL Very High Risk: >vp=819 mg/dL Specimen Anatomical Collection Method Collection Time Receive d Time (Source) Location / / Volume Laterality Blood Venous Draw / 01/23/2022 12:45 01/23/2022 1:13 Unknown AM EDT AM EDT Resulting Agency Comment Spec In Lab Cristina Hillman APRN CHEMISTRY ORDERABLES Performing Organization Address City/[facility]/ZIP Code Phon e Number [address] Type and Screen Validity (01/23/2022 12:45 AM EDT) [facility] Method Time Signature T&S only valid [facility]ORATORY Comment: This Type and Screen result is only valid at the [facility] Specimen Anatomical Collection Method Collection Time Receive d Time (Source) Location / / Volume Laterality Blood 01/23/2022 12:45 01/23/2022 AM EDT 12:51 AM EDT Resulting Agency Comment Spec In Lab Cristina [facility] INSULATION WORKER BLOOD BANK ORDERABLES Performing Organization Address City/[facility]/ZIP Code Phon e Number [address] Scan, Peripheral Blood (01/23/2022 12:45 AM EDT) athologist Signature Plat Estimate Normal [facility] RBC Morphology Normal [facility] Specimen Anatomical Collection Method Collection Time Receive d Time (Source) Location / / Volume Laterality Blood 01/23/2022 12:45 01/23/2022 1:08 AM EDT AM EDT Resulting Agency Comment Spec In Lab Cristina [facility] INSULATION WORKER HEMATOLOGY ORDERABLES Performing Organization Address City/[facility]/[place] [address] (ABNORMAL) Differential, Automated (01/23/2022 12:45 AM EDT) [facility] Method Time Signature Neutrophils % 71.4 % [facility] Neutr Abs (ANC) 16.11 (H) 1.70 - [facility] 6.10 [facility] x10(3)/[facility] LABORATORY Lymphocytes % 17.4 % [facility] Lymphocytes Abs 3.9 (H) 0.9 - 3.2 [facility] x10(3)/[facility] LABORATORY Monocytes % 9.3 % [facility] Monocyte Abs 2.1 (H) 0.3 - 0.9 [facility] x10(3)/[facility] LABORATORY Eosinophils % 0.0 % [facility] Eosinophils Abs 0.0 0.0 - 0.4 [facility] x10(3)/[facility] LABORATORY Basophils % 0.5 % [facility] Basophils Abs 0.1 0.0 - 0.1 [facility] x10(3)/[facility] LABORATORY Immature Gran % 1.40 % [facility] Comment: Immature granulocytes(IG's)percentage an d absolute count will include metamyelocytes, myelocytes, and promyelo cytes. Blood smears from CBCs yielding IG's will be scanned manually for concor dance. If this scan disagrees with the automated IG or if promyelocytes are not ed, a manual differential will be performed. Gemini Gran Abs 0.31 (H) 0.00 - 0.04 x10(3)/[facility] LABORATORY Specimen Anatomical Collection Method Collection Time Receive d Time (Source) Location / / Volume Laterality Blood 01/23/2022 12:45 01/23/2022 1:08 AM EDT AM EDT Resulting Agency Comment Spec In Lab Cristina Hillman APRN HEMATOLOGY ORDERABLES Performing Organization Address City/State/ZIP [place] [address] (ABNORMAL) Hemogram (01/23/2022 12:45 AM EDT) P athologist Signature WBC 22.6 (H) 4.0 - 9.5 [facility] x10(3)/[facility] LABORATORY RBC 6.64 (H) 4.58 - [facility] 5.54 [facility] x10(6)/[facility] LABORATORY Hemoglobin 21.5 13.7 - [facility] (Critical) 16.5 g/dL [facility] Comment: Called by: HERMAN, Read back by: Halley Hoyt, Date/Time:01/23/22 01:33. Corrected from 21.5 g/dL [CRIT] on 01/23 1:33:32 EDT by Shelli Sauceda Hematocrit 63.2 (H) 40.5 - 48.5 % [facility] MCV 95.2 (H) 82.9 - 93.1 fL [facility] MCH 32.4 (H) 27.5 - 32.1 pg [facility] MCHC 34.0 32.0 - 35.7 g/dL [facility] Platelets 269 145 - 357 x10(3)/[facility] LABORATORY RDWSD 43.9 36.0 - 45.0 fL [facility] RDWCV 12.3 11.4 - 13.8 % [facility] MPV 9.7 7.6 - 12.9 fL [facility] nRBC % Auto 0.3 % [facility] nRBC Abs Auto 0.060 (H) 0.000 - 0.000 x10(3)/[facility] LABORATORY Specimen Anatomical Collection Method Collection Time Receive d Time (Source) Location / / Volume Laterality Blood 01/23/2022 12:45 01/23/2022 1:08 AM EDT AM EDT Resulting Agency Comment Spec In Lab Gemma B Pentland INSULATION WORKER HEMATOLOGY ORDERABLES Performing Organization Address City/State/ZIP [place] [address] ABORH Recheck Status (01/23/2022 12:45 AM EDT) [facility] gist Method Time Signature ABORH Recheck Order Placed [facility] LABORATORY ABORH Type Complete [facility] LABORATORY Specimen Anatomical Collection Method Collection Time Receive d Time (Source) Location / / Volume Laterality Blood 01/23/2022 12:45 01/23/2022 AM EDT 12:51 AM EDT Resulting Agency Comment Spec In Lab Gemma B Pentland INSULATION WORKER BLOOD BANK ORDERABLES Performing Organization Address City/State/[place] [address] Antibody screen (01/23/2022 12:45 AM EDT) Patholo gist Method Time Signature Ab Screen Negative [facility] LABORATORY Expires at 01/26/2022 [facility] [id number] on: [facility] Specimen Anatomical Collection Method Collection Time Receive d Time (Source) Location / / Volume Laterality Blood 01/23/2022 12:45 01/23/2022 AM EDT 12:51 AM EDT Resulting Agency Comment Spec In Lab Gemma B Pentland INSULATION WORKER BLOOD BANK ORDERABLES Performing Organization Address City/State/ZIP Code Phon e Number [address] ABO/Rh Typing (01/23/2022 12:45 AM EDT) P athologist Signature ABORh Type A Pos [facility] Specimen Anatomical Collection Method Collection Time Receive d Time (Source) Location / / Volume Laterality Blood 01/23/2022 12:45 01/23/2022 AM EDT 12:51 AM EDT Resulting Agency Comment Spec In Lab Gemma B Pentland INSULATION WORKER BLOOD BANK ORDERABLES Performing Organization Address City/State/[place] [address] (ABNORMAL) Basic Metabolic Panel (non-fasting) (01/23/2022 12:45 AM EDT) P athologist Signature Glucose Lvl 143 65 - 199 [facility] mg/dL [facility] Comment: Diabetes: >=200 mg/dL plus symp toms BUN 47 (H) 10 - 20 mg/dL [facility] Creatinine 4.42 (H) 0.80 - 1.50 mg/dL [facility] Sodium 142 135 - 145 mmol/L [facility] Potassium 7.6 (Critical) 3.5 - 5.0 mmol/L [facility] Comment: Called by: , Read back by: halley hoyt, Date/Time:01/23/22 02:03_. Please note: ??Patients with WBC >100,00 0 may have falsely elevated Potassium levels. ??For accurate Potassium quantif ication in these patients send serum separator tube (gold top) for subsequent determinations. ??Contact the Clinical Chemistry Laboratory if there are any qu estions. Chloride 102 98 - 107 mmol/L [facility] CO2 17 (L) 22 - 31 mmol/L [facility] Anion Gap 23 (H) 5 - 15 mmol/L [facility] Calcium 5.8 (Critical) 8.5 - 10.5 mg/dL [facility] Comment: Called by: kvng, Read back by: manny ruiz, Date/Time:01/23/22 02:03_. Estimated GFR 17 (L) >=60 mL/min/1.73 m?? [facility] Comment: This patient's estimated [...] Organization Address City/State/ZIP [place] [address] (ABNORMAL) Phosphorus (01/23/2022 12:45 AM EDT) P athologist Signature Phosphorus 10.0 2.5 - 4.5 [facility] (Critical) mg/dL [facility] Comment: Called by: kvng, Read back by: ay la adriano, Date/Time:01/23/22 02:03_. Specimen Anatomical Collection Method Collection Time Receive d Time (Source) Location / / Volume Laterality Blood 01/23/2022 12:45 01/23/2022 1:08 AM EDT AM EDT Resulting Agency Comment Spec In Lab Gela Novak MD CHEMISTRY ORDERABLES Performing Organization Address City/[facility]/[place] [address] (ABNORMAL) Magnesium (01/23/2022 12:45 AM EDT) athologist Signature Magnesium 1.08 (H) 0.69 - 1.07 [facility] mmol/L [facility] Specimen Anatomical Collection Method Collection Time Receive d Time (Source) Location / / Volume Laterality Blood 01/23/2022 12:45 01/23/2022 1:08 AM EDT AM EDT Resulting Agency Comment Spec In Lab Gela Novak MD CHEMISTRY ORDERABLES Performing Organization Address City/[facility]/[place] [address] (ABNORMAL) TSH Dade (01/23/2022 12:45 AM EDT) athologist Signature TSH 7.69 (H) 0.27 - 4.20 [facility] mcIU/mL [facility] Comment: Reference Interval (mcIU/mL): Females: ??First Trimester: 0.23-3.88 ??Second Trimester: 0.22-3.90 ??Third Trimester: 0.44-4.66 Specimen Anatomical Collection Method Collection Time Receive d Time (Source) Location / / Volume Laterality Blood 01/23/2022 12:45 01/23/2022 1:08 AM EDT AM EDT Resulting Agency Comment Spec In Lab Cristina Hillman APRN CHEMISTRY ORDERABLES Performing Organization Address City/[facility]/[place] [address] (ABNORMAL) CK (01/23/2022 12:45 AM EDT) athologist Signature CK, Total >[id number] 0 - 200 [facility] GILMORE (H) unit/L [facility] Specimen Anatomical Collection Method Collection Time Receive d Time (Source) Location / / Volume Laterality Blood 01/23/2022 12:45 01/23/2022 1:08 AM EDT AM EDT Resulting Agency Comment Spec In Lab Gemma B Pentland INSULATION WORKER CHEMISTRY ORDERABLES Performing Organization Address City/State/ZIP Code Phon e Number [facility] [place] [address] (ABNORMAL) Troponin (01/23/2022 12:45 AM EDT) P athologist Signature Troponin-T 0.43 (H) 0.00 - [facility] GILMORE 0.00 ng/mL [facility] Comment: The 99th percentile for Troponin T is le ss than 0.01 ng/mL, any detectable cTnT concentration using this assay should be considered elevated. According to the third universal definit ion of myocardial infarction the following criteria with a clinical prese ntation consistent with acute myocardial ischemia meets the diagnosis for a myocardial infarction (VA). Detection of a rise and/or fall of [...] additional sample may be indicated. Reference: Third [place] Definition of Myocardial Infarction. Journal of the [place] College [employer]iology 2012;60:1581-98 Specimen Anatomical Collection Method Collection Time Receive d Time (Source) Location / / Volume Laterality Blood 01/23/2022 12:45 01/23/2022 1:08 AM EDT AM EDT Resulting Agency Comment Spec In Lab Gemma B Pentland INSULATION WORKER CHEMISTRY ORDERABLES Performing Organization Address City/State/ZIP Code Phon e Number [place] [id number] (ABNORMAL) Hepatic Function Panel (01/23/2022 12:45 AM EDT) Analysis Performed At Patho logist Time Signature Total Protein 5.9 (L) 6.1 - 8.0 [facility] Albumin 3.1 (L) 3.2 - 5.2 [facility] g/dL [facility] AST >700 (H) 0 - 39 [facility] unit/L [facility] ALT >700 (H) 0 - 55 [facility] unit/L [facility] Alk Phos 71 40 - 130 [facility] unit/L [facility] Total 0.4 0.2 - 1.3 [facility] Bilirubin mg/dL [facility] Bili, Direct 0.2 0.0 - 0.3 [facility] mg/dL [facility] Specimen Anatomical Collection Method Collection Time Receive d Time (Source) Location / / Volume Laterality Blood 01/23/2022 12:45 01/23/2022 1:08 AM EDT AM EDT Resulting Agency Comment Spec In Lab Cristina Hillman INSULATION WORKER CHEMISTRY ORDERABLES Performing Organization Address City/State/[place] [address] Fibrinogen (01/23/2022 12:45 AM EDT) P athologist Signature Fibrinogen Disregard 200 - 393 [facility] Comment: A fibrinogen level [...] Agency Comment Spec In Lab Jaquelinma B Alycialand INSULATION WORKER HEMATOLOGY ORDERABLES Performing Organization Address City/[facility]/[place] [address] APTT (01/23/2022 12:45 AM EDT) P athologist Signature PTT Disregard 25 - 37 [facility] Comment: The PTT is [...] Agency Comment Spec In Lab Cristina B Alycialand INSULATION WORKER HEMATOLOGY ORDERABLES Performing Organization Address City/[facility] [place] [address] Prothrombin Time (01/23/2022 12:45 AM EDT) P athologist Signature PT Disregard 9.4 - 12.5 [facility] Comment: Disregard results due to high hematocrit result interference Called by: antonella, Read back by: halley hoyt, Date/Time:01/23/22 01:39. Corrected from 12.7 sec [HI] on 01/23/22 1:39:53 EDT by Robson Booth INR Disregard [facility] Comment: An INR <2.0 indicates [...] Organization Address City/State/[place] [address] POCT Glucose (01/23/2022 12:44 AM EDT) P athologist Signature POC Glucose 146 65 - 199 [facility] mg/dL [facility] Comment: Supplemental ranges: <140 mg/dL before meals <180 mg/dL all other times of the day Specimen Anatomical Collection Method Collection Time Receive d Time (Source) Location / / Volume Laterality Blood 01/23/2022 12:44 01/23/2022 AM EDT 12:44 AM EDT Tex Robles MD POINT OF CARE TEST ORDERABLE S Performing Organization Address City/[facility]/[place] [address] MRSA PCR (01/23/2022 12:44 AM EDT) [facility] Method Time Signature MRSA Result Negative Negative [facility] MRSA Interp Negative for methicillin-resistant Staphylococcus aureus (MRSA) [facility] This test was performed using the GeneXpert?? Dx System an d the Xpert MRSA MEMORIAL Assay. The MRSA target DNA was not detec karina. The sample processing control and HOSPITAL probe check were valid. The performance of this test was determined by the [facility] Molecular Pathology Laboratory. It has been maximus red by the U.S. Food and Drug Administration for clinical use. Comment: [VERIFIED DATE]01.25.22 Verified By:Nora Shay (Electronic Signature) Specimen (Source) Anatomical Collection Method Collection Time Re ceived Time Location / / Volume Laterality Nasopharyngeal Swab 01/23/2022 12:44 0611/2021 AM EDT 8:50 AM EDT Resulting Agency Comment Spec In Lab Cristina Hillman INSULATION WORKER MICROBIOLOGY - GENERAL ORDER JT Performing Organization Address City/State/Z[place] [address] (ABNORMAL) COVID-19 PCR (01/23/2022 12:44 AM EDT) [facility] Method Time Signature SARS-CoV-2 Detected (A) Not Detected [facility] RNA [facility] Comment: This result should be interpreted [...] diagnosis of COVID-19 is performed using the [employer] S-CoV-2 Assay as authorized by the FDA Emergency Use Authorization (EUA). This EUA assay is intended for In-vitro Diagnostic (IVD) use with respiratory sp ecimens such as nasopharyngeal swabs collected from individuals during the ac lovelock phase of infection. This assay is performed based on the instructions for use provided by [employer] and additional guidance provided by CDC and FDA. Testing is performed in the Clinical Genomics and Advanced Technolog y Laboratory within the Department of Pathology and Laboratory Medicine at [facility], certified under the Clinical Laboratory Improvement Amendments [...] clinical management guidance information are available at [facility] Coronavirus Disease 2019 (COVID-19) webpage under Information fo r Healthcare Professionals (https://www.cdc.gov/coronavirus/2019-nc ov/hcp/index.html) Additional information about this and ot her EUA tests can be found in provider and patient fact sheets at the following FDA website: https://www.fda.gov/medical-devices/rbtcgbpnucx-ypexews-8589-zyxdn-84-eautifiuc- rty-epfbipfbolkfhk-brmdbbp-devices/kdqlq-ifqohdcgowh-npuu SARS-Cov-2 RNA Source Trach Asp [facility] Specimen Anatomical Collection Method Collection Time Receive d Time (Source) Location / / Volume Laterality Tracheal 01/23/2022 12:44 01/23/2022 8:48 Aspirate AM EDT AM EDT Comment: Symptoms->COVID-19 Suspected Resulting Agency Comment Spec In Lab Cristina Hillman APRN MICROBIOLOGY - GENERAL ORDER JT Performing Organization Address City/State/ZIP [place] [address] documented in this encounter [...] Oral, WEEKLY, 6 doses, First dose on Tue02/28/22 at 1745, Last dose on 04/04/22 at [...] 1331, Until Tue03/23/22 at 171, Pain, for moderate pain (4-6), May give [...] Until Tue03/23/22 at 171, Opioid Reversal, for respir atory rate less [...] Brittney Ann RN)1107 (Given - Provider: Josh Peck, ÁNGEL)1934 (Given - Provider: Jayme Keenan, ÁNGEL) 0416 (Given - Provider: Jayme huffman RN)1238 (Given - Provider: Josh Peck RN)2040 (Given - Provider: Betzaida Francois, ÁNGEL) 0303 (Given - Provider: Betzaida tran RN)1248 (Given - Provider: Corina Zabala, ÁNGEL) 1,000 mg, Oral, EVERY 8 HOURS SCHEDULED, [...] (Gi honorio - Provider: Corina Zabala, ÁNGEL) 250 mg, Oral, DAILY, First dose (after l ast modification) on Tue02/12/22 at 0900, Until Discontinued, Routine buprenorphine-naloxone (Suboxone) 2-0.5 mg disintegrating tablet 1 tablet (COMPLETED) 0832 (Given - Provider: Josh Peck RN) 1 [...] 2-0.5 mg disintegrating tablet 2 tablet (COMPLETED) 2155 (Given - Provider: Hernán Carlos RN) 0850 [...] 2 tablet 2039 (Given - Provider: Betzaida Francois, RN) 0818 (Given - Provider: Corina Zabala, [...] Josh Peck RN)2154 (Given - Provider: Hernán Carlos, RN) 0844 (Given - Provider: Josh Peck [...] RN)204 (Given - Provider: Betzaida Francois RN) 030 (Given - Provider: Betzaida Francois RN)1200 (Not [...] (Gi honorio - Provider: Corina Zabala, RN) 1 tablet, Oral, DAILY, First dose [...] RN) 0851 (Given - Provider: Josh Peck RN)2041 (Given - Provider: Betzaida Francois RN) 08 (Given - Provider: Corina Zabala , RN) 5 mL, Intravenous, 2 TIMES DAILY, First dose on Tue02/26/22 at 2100, Until Discontinued, Routine thiamine (Vitamin B1) tablet 100 mg 0833 (Given - Prov ider: Josh Peck RN) 0844 (Given - Provider: Josh Peck RN) 0819 (Gi honorio - Provider: Corina Zabala, RN) 100 mg, Oral, DAILY, First dose [...] RN) 0819 (Given - Provider: Corina Zabala RN)1248 (Given - [...] Peck RN)1934 (See Alternative - Provider: Jayme Keenan, ÁNGEL) 0416 (See Alternative - Provider: Jayme Keenan, ÁNGEL)0827 (See Alternative - Provider: Josh Peck RN)1238 [...] (CANCELED) 0242 (G iven - Provider: Brittney Ann RN)0642 (Given - Provider: Brittney Ann RN) 15 [...] on Tue02/26/22 at 1533, Until Tue03/23/22 at 171, flush, Flush pertains to all indwelling lines. Flush per protocol found in the job aid using the link provided on this medication record., Routine Linked Groups Order Group 1: HYDROmorphone (Dilaudid) tablet 2 mgJump to med 2 mg, Oral, EVERY 4 HOURS PRN, Starting on Tue03/23/22 at 1331, Until Tue03/23/22 at 171, Pain, for moderate pain (4-6)
May give [...] 01/23/22 Precautions may be discontinued by the [facility] team after the required isolation period (10 or 20 days, depending on the clinical circumstances) when the patient is clinically improving and has be en afebrile for 24 hours without fever reducing medications. Estimated date patient will be eligible for precaution removal: 02/03/22 Please call [phone] with questions. Rule Out C. difficile 02/01/2022 [...] prior to 04/25/22 Please call Infection Prevention [phone] with questions. COVID-19Comment: Original COVID-19 test 01/23. Developed symptoms again 02/04/22 so extending isolation to 20 days. 02/04/2022 02/04/2022 02/09/20 1:57 PM EDT Eligible for precaution removal 02/13/22 History of COVID-19Comment: Retesting fo r COVID is not recommended unless infectious syndrome persists with no alternate explanation. 02/08/2022 02/08/2022 Positive test on 01/23/2022 Please do not retest prior to 04/25/2022 Please call Infection Prevention [phone] with questions. History of C. difficileComment: 03/19/2022 03/19/2022 Patient has met the 5 C's and is eligible to end soap and water contact precautions. Currently on PO vanc prophylacticly due to getting antibiotics for tx. documented as of this encounter Care Teams Paunch Trimmer Relationship Specialty Start Date End Date None PCP - General 03/10/19 None documented as of this encounter
--- OUTSIDE RECORDS SUMMARY | 2022-04-21 11:29 | XMS_ITS | Encounter Summary ---
:1990 Author Organization [facility] Address [place] [id number] Care Team Providers Name Role Phone None Primary Care Provider Unavailable Reason for Visit Auth/Cert Specialty Diagnoses / Procedures Referred By Contact Refer red To Contact Diagnoses Cardiac arrest intubated med misuse/covid Ximena Robles MD [facility] Procedures ER IPI Admit [facility] [place] [address] Referral ID Status Reason Start Date Expiration Date Visits Requ ested Visits Authorized [id number] 1 1 Encounter Details Date Type Department Care Team Description 02/06/2022 Anesthesia Event [facility] Amber Taylor MD [facility] [place] [address] [address] [phone] ANESTHESIOLOGY [place] [id number] (Wo rk) Anesthesia Record Procedure Summary Procedure Name Responsible Anesthesia Start Anesthesia Stop Anesthesiologist Time Time ANESTHESIA CONSULT Amber Ray MD 02/06/22 1239 02/06/22 16 30 (N/A ) Events Date Time Event Comment 02/06/2022 1100 1239 AN Verify 1239 Start 1239 An Start Data 1300 Anesthesia Ready 1310 Procedure Start 1502 Procedure Stop 1502 Transport 1626 an stop data 1630 Stop Name Total Midazolam 4 mg Ketamine 10 mg/mL 100 mg PHENYLephrine INF 6,990 mcg HYDROmorphone 2 mg/mL 2 mg Lactated Ringers 0 mL Agents Name O2 Air N2O O2 Auxiliary Flowmeter 2 Blood No blood [...] Schumacher tthew P, 02/09/22; 1508 RN RN CVC 3 Lumen 01/23/22; 0600; 01/23/22 0600 by 02/07/22 1230 b y internal jugular vein, Helena Zapien, Natalya Rajput L, right; lumen/catheter RN not patent (new lumen was changed over a wire); cathflo instilled x2, unable to pull from venous cath; 02/07/22; 1230 Incision 01/23/22; 0931; Left 01/23/22 0931 by [...] 1625 by 03/06/22 0738 by palm; dressing Zaballa, Toan A, Wendy Natarajan R, xerofrom, abd, aide RN RN 4inch aplied on 01/26 at 1730; 03/06/22; 0738 NPWT 01/26/22; 1712; Left, 01/26/22 1712 by 02/11/22 1021 by anterior; arm; Toan Robbins Binder, Mark K, RN 02/11/22; 1021 RN Incision 02/04/22; 1738; Left, 02/04/22 1738 by 03/06/22 1544 by lower; arm; 03/06/22; Rashmi, Wendy Mcclure, Wendy Natarajan R, 1544 RN RN Incision 02/04/22; 1848; Left, 02/04/22 1848 by 02/09/22 0923 by lower; leg; LDA not Rashmi, Annabelle Morejon Eri n L RN present upon vulnerability assessment analyst (duplicate); 02/09/22; 0923 Incision 02/04/22; 1849; Left; 02/04/22 1849 by 02/09/22 0922 by thigh; LDA not present Wendy Caraballo Patt, Erin L RN upon vulnerability assessment analyst (duplicate); 02/09/22; 09 Arterial Line 02/06/22; 0603; femoral 02/06/22 0603 by 2 1041 by artery, right; 20 Guevara Cunha Jacob P, gauge; femoral artery, ÁNGEL Obrien RN right; no longer indicated, removed per policy, catheter intact; 02/10/22; 1041 ETT Mask Ventilation: Easy 02/06/22 1533 by 02/06/22 1659 by (1); ETT Type: Cuffed, Pretty Valera MD Low, Amber Clayton MD Oral; ETT Size: 7.5 mm; Mac Blade: 4; Notes: Asleep, Pre-O2, Stylette; Attempts: 1; Laryngoscopy Grade: 1 Urethral Catheter 02/06/22; 1600; 02/06/22 1600 by 02/06/22 1800 by Physician order; Emma Otero Maxham, Perr i L, indwelling double lumen RN RN catheter; latex; 14; inserted at this facility (Inserted w ease by Lucretia Otero, RN); 1; 5; 10; drainage bag to dependent drainage; 02/06/22; 1800 Intentionally Retained 02/06/22; 1630; Drs 02/06/22 1630 by 01/29 08/22 1600 by Foreign Objects Patti and Sher.; Emma Otero, Jb Schumacher ttpam P, Other (Comment) (Left RN RN Thigh Wound); Left; TWO QUIK CLOT IN lEFT LATERAL THIGH WOUND; 02/08/22; 1600 (~approx); Per dr gross's op note, priorly removed documented in this encounter Social History Tobacco [...] as of this encounter OR Notes Anesthesia Preprocedure Evaluation - Amber Ray MD - 02/06/2022 11:41 AM EDT Pre-Anesthesia Evaluation for: Eric Packer a 31 y.o. male. Procedure(s): ANESTHESIA CONSULT Patient Active Problem List Diagnosis Date Noted [...] (WRVU 4.1) performed by Tom Valdovinos MD [facility] MAIN OR ? ? PRO DEBRIDEMENT BONE MUSCLE &/FASCIA 20 SQ CM/< Left 01/31/2022 DEBRIDEMENT SKIN, SUBCU, MUSCLE, BONE, LOWER EXTREMITY (WRVU 4.1) performed by Jose Branch MD at [facility] MAIN OR ? ? PRO DEBRIDEMENT BONE MUSCLE &/FASCIA 20 SQ CM/< Left 01/31/2022 DEBRIDEMENT SKIN, SUBCU, MUSCLE, BONE UPPER EXTREMITY (WRVU 4.1) performed by Jose Branch MDat [facility] MAIN OR ? ? PRO DEBRIDEMENT BONE MUSCLE &/FASCIA 20 SQ CM/< Left 02/02/2022 DEBRIDEMENT SKIN, SUBCU, MUSCLE, BONE UPPER EXTREMITY (WRVU 4.1) performed by Hina Avitia MD at [facility] MAIN OR ? ? PRO DEBRIDEMENT BONE MUSCLE &/FASCIA 20 SQ CM/< Left 02/02/2022 DEBRIDEMENT SKIN, SUBCU, MUSCLE, BONE, LOWER EXTREMITY (WRVU 4.1) performed by Hina Avitia MD at [facility] MAIN OR ? ? PRO DEBRIDEMENT MUSCLE AND FASCIA 20 SQ CM/< Left 01/26/2022 DEBRIDEMENT SKIN, SUBCU, MUSCLE, LOWER EXTREMITY (WRVU 2.7) performed by Sigifredo Garcia MD at [facility] MAIN OR ? ? PRO DEBRIDEMENT MUSCLE AND FASCIA 20 SQ CM/< Left 01/26/2022 DEBRIDEMENT SKIN, SUBCU, MUSCLE, UPPER EXTREMITY (WRVU 2.7) performed by Sigifredo Garcia MD at [facility] MAIN OR ? ? PRO DEBRIDEMENT MUSCLE AND FASCIA 20 SQ CM/< Left 02/05/2022 DEBRIDEMENT SKIN, SUBCU, MUSCLE, LOWER EXTREMITY (WRVU 2.7) performed by Tom Valdovinos MD at [facility] MAIN OR ??? PRO DECOMP FOREARM, 2 COMPART, W/O DEBRIDE Left 01/23/2022 FASCIOTOMY; FOREARM AND\OR WRIST, FLEXOR & EXTENS. COMP (WRVU 10.79) performed by Sigifredo Garcia MD at [facility] MAIN OR ??? PRO DECOMPRESS ANT/LAT+POST LEG CMPART Left 01/23/2022 FASCIOTOMY, LOWER LEG, ALL COMPARTMENTS (WRVU 7.82) performed by Sigifredo Garcia MD at [facility] MAIN OR ??? PRO INCIS OF HIP/THIGH FASCIA Left 01/23/2022 @FASCIOTOMY,THIGH OR HIP FOR COMPARTMENT SYNDROME (WRVU 12.89) performed by Sigifredo Garcia MD at [facility] MAIN OR ??? PRO NEGATIVE PRESSURE WOUND THERAPY, LESS THAN OR EQUAL TO 50 SQCM Left 02/05/2022 DRESSING CHANGE (VAC ASSISTED) UP TO 50SQ.CM (WRVU 0.55) performed by Orville Hennessy MD at [facility] MAIN OR ??? PRO NEGATIVE PRESSURE WOUND THERAPY, LESS THAN OR EQUAL TO 50 SQCM Left 02/05/2022 DRESSING CHANGE (VAC ASSISTED) UP TO 50SQ.CM (WRVU 0.55) performed by Tom Valdovinos MD at [facility] MAIN OR ??? PRO OPEN TREAT MANDIBLE CONDYLE FX, COMPL 04/27/2013 OPEN TREATMENT, COMPLEX MANDIBLE FX., MULTI APPROACH, W/ FIXATION performed by Kishore Neil MD at [facility] MAIN OR ??? PRO REVISE MEDIAN N/CARPAL TUNNEL SURG Left 01/23/2022 MEDIAN NERVE DECOMPRESSION (CARPAL TUNNEL RELEASE) (WRVU 4.97) performed by Sigifredo Garcia MD at [facility] MAIN OR ??? PRO SEC CLSR SURG WOUND/DEHSN EXTENSIVE/COMPLICATED Left 01/26/2022 SECONDARY CLOSURE SURGICAL WOUND OR DEHISCENCE, EXTENSIVE OR COMPLICATED, UPPER EXTREMITY (WRVU 12.04) performed by Sigifredo Garcia MD at [facility] MAIN OR Social History Tobacco [...] Physical Exam: Preprocedure Vitals Current as of 02/06/22 1141 BP: 120/71 Pulse: 111 Resp: 16 SpO2: 98 Temp: 36.3 ??C (97.3 ??F) Height: 182.9 cm (6' 0.01) (02/05/22) Weight: 116.8 kg (257 lb 8 oz) (02/05/22) BMI: 34.91 IBW: 77.6 kg (171 lb 1.9 oz) Last edited 02/06/22 1139 by PM Currently displaying vitals information from multiple entries within 180 minutes of most recent vitals. Airway Assessment: Mallampati: (Unable to Assess) TM distance: >3 FB Neck ROM: full Cardiovascular Assessment: Rhythm: regular Rate: normal Pulmonary Assessment: unlabored breathing Dental Assessment: Misc Assessment: IV access: Central line and A-line Last Filed Perioperative Cognitive Screening None Anesthesia Plan: ASA 3 general, with a(n) intravenous induction 31 yom w/ new ALTHEA/CVVHD s/p rhabdo induced compartment syndrome, cardiac arrest admitted overnight to the SICU for ongoing bleeding from the LLE requiring large volume resuscitation. Now to IR for embolization. Region - Other Informed Consent: Plan discussed with LEGAL AID. Anesthesia Screening Anesthesia Postprocedure Evaluation - Amber Ray MD - 01/30/2022 3:46 PM EDT Department of Anesthesiology Post-procedure Note Patient: Eric Packer Procedure Summary Date: 02/06/22 Room / Location: [facility] Anesthesia Start: 1239 Anesthesia Stop: 1630 Procedure: ANESTHESIA CONSULT (N/A ) Diagnosis: (LLE Angio/embolization) Surgeons: [facility], ANESTHESIA-PERCY Responsible Provider: Amber Ray MD Anesthesia Type: general ASA Status: 3 All Anesthesia Providers: Anesthesiologist: Amber Ray MD LEGAL AID: Anthony Turner CRNA Vitals Value Taken Time BP 142/75 02/07/221999 Temp 36.7 ??C (98.1 ??F) 02/09/22 0800 Pulse 99 02/09/22 0846 Resp 14 02/09/22 0846 SpO2 99 % 02/09/22 0846 Pain Level 9 02/09/22 0800 Vitals shown include unvalidated device data. Patient Location: Level of Consciousness: Pain Management: PONV: Cardiovascular Status: Respiratory Status: Postoperative Fluid Status: Possible Anesthetic Complications: Final Primary Anesthesia Type: General (The anesthetic type performed was the same as planned.) Comments: Patient transported to OR20 for debridement following embolism in IR. Another post-op noteafter OR20 procedure to follow documented in this encounter Plan of Treatment Upcoming Encounters Date Type Specialty Care Team Description 06/09/2022 Procedure visit Neurology Summer Wiggins MD [facility] [place], [place] [address] (Wo rk) Scheduled Procedures Name [...] Rate Site HYDROmorphone (Dilaudid) (2 mg/mL) Given 02/06/2022 2:39 PM EDT 1 mg multi-dose injection solution Intravenous, PRN, Starting on 02/06/22 at 1413, Until Tue02/09/22 at 0802, Anesthesia Intra-op, Routine Given 02/06/2022 2:19 PM EDT 0.6 mg Given 02/06/2022 2:13 PM EDT 0.4 mg ketamine (Ketalar) (10 mg/mL) IV bolus Given 02/06/2022 2:20 PM EDT 10 mg injection (Anesthesia) Intravenous, PRN, Starting on 02/06/22 at 1308, Until Tue02/09/22 at 0802, Anesthesia Intra-op Given 02/06/2022 2:06 PM EDT 20 mg Given 02/06/2022 1:54 PM EDT 20 mg lactated ringers infusion New Bag 02/06/2022 12:39 PM EDT Intravenous, CONTINUOUS PRN, Starting on 02/06/22 at 1239, Until Tue02/09/22 at 0802, Anesthesia Intra-op midazolam (pf) (Versed) (1 mg/mL) multi-dose Given 02/06/2022 1: 06 PM EDT 1 mg injection Intravenous, PRN, Starting on 02/06/22 at 1300, Until Tue02/09/22 at 0802, Anesthesia Intra-op, Routine Given 02/06/2022 1:03 PM EDT 1 mg Given 02/06/2022 1:00 PM EDT 2 mg PHENYLephrine (Rustam-Synephrine) Rate/Dose Change 02/06/2022 2:33 20 mcg/min 15 mL/hr (80 mcg/mL) in sodium chloride PM EDT 0.9% 250 mL infusion Intravenous, CONTINUOUS PRN, Starting on 02/06/22 at 1300, Until Tue02/09/22 at 0802, Anesthesia Intra-op, Routine New Bag 02/06/2022 1:00 PM EDT 50 mcg/min 37.5 mL/hr documented in this encounter Additional Health Concerns Infection Onset Date Last Indicated Resolved Time C. difficileComment: Eligibe to end 02/01/2022 02/01/2022 03/19/2022 3:02 PM EDT [facility] CP COVID-19Comment: Original COVID-19 test 01/23. Developed symptoms again 02/04/22 so extending isolation to 20 days. 02/04/2022 02/04/2022 02/09/20 1:57 PM EDT Eligible for precaution removal 02/13/22 documented as of this encounter Care Teams Hand Bender Relationship Specialty Start Date End Date None PCP - General 03/10/19 None documented as of this encounter
--- OUTSIDE RECORDS SUMMARY | 2022-04-21 11:29 | XMS_ITS | Encounter Summary ---
:1990 Author Organization [facility] [place] [address] Care Team Providers Name Role Phone None Primary Care Provider Unavailable Reason for Visit Auth/Cert Specialty Diagnoses / Procedures Referred By Contact Refer red To Contact Diagnoses Cardiac arrest intubated med misuse/covid Ximena Robles MD [facility] Procedures ER I[facility] [address] Referral ID Status Reason Start Date Expiration Date Visits Requ ested Visits Authorized [id number] 1 1 Encounter Details Date Type Department Care Team Description 02/06/2022 Anesthesia Event Main Operating Room Neftali Aparicio MD [facility] [address] [facility] Pretty Valera MD [facility] [place] [address] [facility] [place] [address] Anesthesia Record Procedure Summary Procedure Name Responsible Anesthesia Start Anesthesia Stop Anesthesiologist Time Time INCISION & DRAINAGE Amber Ray MD 02/06/22 1512 02/06/22 1 708 ABSCESS OR HEMATOMA, THIGH, KNEE SUPERFICIAL (WRVU 6.78) (Left Leg Upper) Events Date Time Event Comment 02/06/2022 1200 1512 AN Verify 1512 Start 1512 An Start Data 1527 An Induction 1528 An Intubation 1529 Anesthesia Ready 1540 Procedure Start 1642 Procedure Stop 1659 Extubation/LMA Out 1700 an stop data 1708 Stop Name Total Propofol 100 mg Rocuronium 100 mg PHENYLephrine 640 mcg Ketamine 10 mg/mL 100 mg NORepinephrine INF 342 mcg PHENYLephrine INF 4,980 mcg Sugammadex 200 mg Lactated Ringers 1,000 mL Sodium Chloride 0.9% 800 mL Agents Name O2 Air N2O Isoflurane (et) Blood No blood administrations on file. Lines, Drains, and Airways Type Details Placement Removal Incision 01/23/22; 0829; Left, 01/23/22 0829 by lateral; calf; vertical Emma Otero, RN Incision 01/23/22; 0841; Left, 01/23/22 0841 by lateral; thigh; Emma Otero P, vertical RN Incision 01/23/22; 0858; Left; 01/23/22 0858 by arm (volar surface); Emma Otero, vertical RN Incision 04/27/13; jaw (inside 04/27/13 [...] b y internal jugular vein, Tung Diehl, ÁNGEL cedeno, Tung P, left; no longer RN indicated, removed per policy/procedure, site care per policy/procedure, catheter/device intact; 02/10/22; 1330 Incision 01/26/22; 1625; Left; 01/26/22 1625 by 03/06/22 0738 by palm; dressing Toan Robbins, Wendy Natarajan R, xerofrom, abd, aide RN RN 4inch aplied on 01/26 at 1730; 03/06/22; 0738 NPWT 01/26/22; 1712; Left, 01/26/22 1712 by 02/11/22 1021 by anterior; arm; Toan Robbins, Binder, Gaurang K, RN 02/11/22; 1021 RN Incision 02/04/22; 1738; Left, 02/04/22 1738 by 03/06/22 1544 by lower; arm; 03/06/22; Rashmi, Rosa Isela Morejon Lisa R, 1544 RN RN Incision 02/04/22; 1848; Left, 02/04/22 1848 by 02/09/22 0923 by lower; leg; LDA not Rashmi, Annabelle Morejon, Joann cedeno L, RN present upon travel guide (duplicate); 02/09/22; 0923 Incision 02/04/22; 1849; Left; 02/04/22 1849 by 02/09/22 0922 by thigh; LDA not present Wendy Caraballo Patt, Maureen L, RN upon travel guide (duplicate); 02/09/22; 0922 Arterial Line 02/06/22; 0603; femoral 02/06/22 0603 by 2 1041 by artery, right; 20 Guevara Cunha Jacob P, gauge; femoral artery, Camille RN RN right; no longer indicated, removed per policy, catheter intact; 02/10/22; 1041 ETT Mask Ventilation: Easy 02/06/22 1533 by 02/06/22 1659 by (1); ETT Type: Cuffed, Pretty Valera MD Low, Amber Clayton MD Oral; ETT Size: 7.5 mm; Mac Blade: 4; Notes: Asleep, Pre-O2, Stylette; Attempts: 1; Laryngoscopy Grade: 1 Urethral Catheter 02/06/22; 1600; 02/06/22 1600 by 02/06/22 1800 by Physician order; Emma Otero, Juan Amador i L, indwelling double lumen RN RN catheter; latex; 14; inserted at this facility (Inserted w ease by Lucretia Otero, RN); 1; 5; 10; drainage bag to dependent drainage; 02/06/22; 1800 Intentionally Retained 02/06/22; 1630; Drs 02/06/22 1630 by 01/29 08/22 1600 by Foreign Objects Patti and Sher.; Emma Otero, Jb Schumacher tthew P, Other (Comment) (Left [...] encounter OR Notes Anesthesia Postprocedure Evaluation - Pretty Valera MD - 02/06/2022 5:32 PM EDT Department of Anesthesiology Post-procedure Note Patient: Eric Packer Procedure Summary Date: 02/06/22 Room / Location: [address] MAIN OR Anesthesia Start: 1511 Anesthesia Stop: 1707 Procedure: INCISION & DRAINAGE ABSCESS OR HEMATOMA, THIGH, KNEE SUPERFICIAL (WRVU 6.78) (Left Leg Upper) Diagnosis: (left thigh bleed) Surgeons: Jayme Armstrong MD Responsible Provider: Amber Ray MD Anesthesia Type: general ASA Status: 3 - Emergent All Anesthesia Providers: Anesthesiologist: Amber Ray MD ASSOCIATE PROFESSOR OF ENGLISH: Anthony Turner CRNA Senior Graphic Designer: Pretty Valera MD Vitals Value Taken Time BP Temp Pulse Resp SpO2 Pain Level Patient Location: ICU Level of Consciousness: Conscious but Sleepy Pain Management: Satisfactory Analgesia PONV: None Cardiovascular Status: At Baseline Respiratory Status: At Baseline Postoperative Fluid Status: Intravascular EUvolemia Possible Anesthetic Complications: NONE apparent at time of evaluation Final Primary Anesthesia Type: General (The anesthetic type performed was the same as planned.) Comments: Anesthesia Preprocedure Evaluation - Pretty Valera MD - 02/06/2022 4:30 PM EDT Pre-Anesthesia Evaluation for: Eric Packer a 31 y.o. male. Procedure(s): INCISION & DRAINAGE ABSCESS OR HEMATOMA, THIGH, KNEE SUPERFICIAL (VU 6.78) Patient Active Problem List Diagnosis Date Noted [...] (WRVU 4.1) performed by Tom Valdovinos MD [facility] MAIN OR ? ? PRO DEBRIDEMENT BONE MUSCLE &/FASCIA 20 SQ CM/< Left 01/31/2022 DEBRIDEMENT SKIN, SUBCU, MUSCLE, BONE, LOWER EXTREMITY (WRVU 4.1) performed by Jose Branch MD at [facility] MAIN OR ? ? PRO DEBRIDEMENT BONE MUSCLE &/FASCIA 20 SQ CM/< Left 01/31/2022 DEBRIDEMENT SKIN, SUBCU, MUSCLE, BONE UPPER EXTREMITY (WRVU 4.1) performed by Jose Branch MDat [facility] MAIN OR ? ? PRO DEBRIDEMENT BONE MUSCLE &/FASCIA 20 SQ CM/< Left 02/02/2022 DEBRIDEMENT SKIN, SUBCU, MUSCLE, BONE UPPER EXTREMITY (WRVU 4.1) performed by Hina Avitia MD at [facility] MAIN OR ? ? PRO DEBRIDEMENT BONE MUSCLE &/FASCIA 20 SQ CM/< Left 02/02/2022 DEBRIDEMENT SKIN, SUBCU, MUSCLE, BONE, LOWER EXTREMITY (WRVU 4.1) performed by Hina Avitia MD at [facility] MAIN OR ? ? PRO DEBRIDEMENT MUSCLE AND FASCIA 20 SQ CM/< Left 01/26/2022 DEBRIDEMENT SKIN, SUBCU, MUSCLE, LOWER EXTREMITY (WRVU 2.7) performed by Sigifredo Garcia MD at [facility] MAIN OR ? ? PRO DEBRIDEMENT MUSCLE AND FASCIA 20 SQ CM/< Left 01/26/2022 DEBRIDEMENT SKIN, SUBCU, MUSCLE, UPPER EXTREMITY (WRVU 2.7) performed by Sigifredo Garcia MD at [facility] MAIN OR ? ? PRO DEBRIDEMENT MUSCLE AND FASCIA 20 SQ CM/< Left 02/05/2022 DEBRIDEMENT SKIN, SUBCU, MUSCLE, LOWER EXTREMITY (WRVU 2.7) performed by Tom Valdovinos MD at [facility] MAIN OR ??? PRO DECOMP FOREARM, 2 COMPART, W/O DEBRIDE Left 01/23/2022 FASCIOTOMY; FOREARM AND\OR WRIST, FLEXOR & EXTENS. COMP (WRVU 10.79) performed by Sigifredo Garcia MD at [facility] MAIN OR ??? PRO DECOMPRESS ANT/LAT+POST LEG CMPART Left 01/23/2022 FASCIOTOMY, LOWER LEG, ALL COMPARTMENTS (WRVU 7.82) performed by Sigifredo Garcia MD at [facility] MAIN OR ??? PRO INCIS OF HIP/THIGH FASCIA Left 01/23/2022 @FASCIOTOMY,THIGH OR HIP FOR COMPARTMENT SYNDROME (WRVU 12.89) performed by Sigifredo Garcia MD at [facility] MAIN OR ??? PRO NEGATIVE PRESSURE WOUND THERAPY, LESS THAN OR EQUAL TO 50 SQCM Left 02/05/2022 DRESSING CHANGE (VAC ASSISTED) UP TO 50SQ.CM (WRVU 0.55) performed by Orville Hennessy MD at [facility] MAIN OR ??? PRO NEGATIVE PRESSURE WOUND THERAPY, LESS THAN OR EQUAL TO 50 SQCM Left 02/05/2022 DRESSING CHANGE (VAC ASSISTED) UP TO 50SQ.CM (WRVU 0.55) performed by Tom Valdovinos MD at [facility] MAIN OR ??? PRO OPEN TREAT MANDIBLE CONDYLE FX, COMPL 04/27/2013 OPEN TREATMENT, COMPLEX MANDIBLE FX., MULTI APPROACH, W/ FIXATION performed by Kishore Neil MD at [facility] OR ??? PRO REVISE MEDIAN N/CARPAL TUNNEL SURG Left 01/23/2022 MEDIAN NERVE DECOMPRESSION (CARPAL TUNNEL RELEASE) (WRVU 4.97) performed by Sigifredo Garcia MD at [facility] MAIN OR ??? PRO SEC CLSR SURG WOUND/DEHSN EXTENSIVE/COMPLICATED Left 01/26/2022 SECONDARY CLOSURE SURGICAL WOUND OR DEHISCENCE, EXTENSIVE OR COMPLICATED, UPPER EXTREMITY (WRVU 12.04) performed by Sigifredo Garcia MD at [facility] OR Social History Tobacco Use ??? Smoking [...] Exam: Preprocedure Vitals Current as of 02/06/22 1512 BP: 119/75 Pulse: 124 Resp: 16 SpO2: 100 Temp: 36.3 ??C (97.3 ??F) Height: 182.9 cm (6' 0.01) (02/05/22) Weight: 116.8 kg (257 lb 8 oz) (02/05/22) BMI: 34.91 IBW: 77.6 kg (171 lb 1.9 oz) Last edited 02/06/22 1216 by PM Currently displaying vitals information from multiple entries within 180 minutes of most recent vitals. Airway Assessment: Mallampati: (Unable to Assess) TM distance: >3 FB Neck ROM: full Cardiovascular Assessment: system normal Pulmonary Assessment: unlabored breathing Dental Assessment: Misc Assessment: Last Filed Perioperative Cognitive Screening None Anesthesia Plan: ASA 3 emergent general, with a(n) intravenous induction 31 yom w/ new ALTHEA/CVVHD s/p rhabdo induced compartment syndrome, cardiac arrest admitted overnight to the SICU for ongoing bleeding from the LLE requiring large volume resuscitation. Pt is s/p IR embolization today, now to OR for washout/debridement. Region - Other Informed Consent: Anesthetic plan and risks discussed with healthcare power of claim attorney. Pt was not able to consent. Grandmother consented pt for surgery with implied consent from anesthesia. Anesthesia Screening documented in this encounter Plan of Treatment Upcoming Encounters Date Type Specialty Care Team Description 06/09/2022 Procedure visit Neurology Summer Wiggins MD [facility] NEUROLOGY DEPT [place], [place] [address] (Wo rk) Scheduled Procedures Name [...] MAR Action Action Date Dose Rate Site ketamine (Ketalar) (10 mg/mL) IV Given 02/06/2022 3:27 PM EDT 50 mg bolus injection (Anesthesia) Intravenous, PRN, Starting on 02/06/22 at 1513, Until 02/06/22 at 1732, Anesthesia Intra-op Given 02/06/2022 3:13 PM EDT 50 mg lactated ringers infusion New Bag 02/06/2022 3:12 PM EDT Intravenous, CONTINUOUS PRN, Starting on 02/06/22 at 1512, Until 02/06/22 at 1732, Anesthesia Intra-op NORepinephrine (Levophed) (16 Rate/Dose Change 02/06/2022 4:38 5 mc g/min 18.75 mL/hr mcg/mL) in dextrose 5% 250 mL PM EDT infusion Intravenous, CONTINUOUS PRN, Starting on 02/06/22 at 1550, Until 02/06/22 at 1732, Anesthesia Intra-op, Routine New Bag 02/06/2022 3:50 PM EDT 4 mcg/min 15 mL/hr PHENYLephrine (Rustam-Synephrine) Rate/Dose Change 02/06/2022 4:00 40 mcg/min 30 mL/hr (80 mcg/mL) in sodium chloride PM EDT 0.9% 250 mL infusion Intravenous, CONTINUOUS PRN, Starting on 02/06/22 at 1532, Until 02/06/22 at 1732, Anesthesia Intra-op, Routine Rate/Dose Change 02/06/2022 3:54 PM EDT 60 mcg/min 45 mL/hr Rate/Dose Change 02/06/2022 3:49 PM EDT 80 mcg/min 60 mL/hr PHENYLephrine in NS (PF) (RUSTAM-SYNEPHRINE) Given 02/06/2022 3:44 PM EDT 160 mcg 0.8 mg/10 mL (80 mcg/mL) multi-dose injection Syrg Intravenous, PRN, Starting on 02/06/22 at 1447, Until 02/06/22 at 1732, Anesthesia Intra-op, Routine Given 02/06/2022 3:39 PM EDT 160 mcg Given 02/06/2022 3:31 PM EDT 160 mcg propofoL (Diprivan) 10 mg/mL bolus injection Given 3:29 PM EDT 50 mg (Anesthesia) Intravenous, PRN, Starting on 02/06/22 at 1527, Until 02/06/22 at 1732, Anesthesia Intra-op Given 02/06/2022 3:27 PM EDT 50 mg rocuronium (Zemuron) (10 mg/mL) multi-dose Given 02/06/2022 3:27 PM EDT 100 mg injection Intravenous, PRN, Starting on 02/06/22 at 1527, Until 02/06/22 at 1732, Anesthesia Intra-op, Routine sodium chloride 0.9% infusion New Bag 02/06/2022 3:35 PM EDT Intravenous, CONTINUOUS PRN, Starting on 02/06/22 at 1535, Until 02/06/22 at 1732, Anesthesia Intra-op sugammadex (Bridion) 100 mg/mL injection Given 02/06/2022 4:58 PM EDT 200 mg Intravenous, PRN, Starting on 02/06/22 at 1658, Until 02/06/22 at 1732, Anesthesia Intra-op, Routine documented in this encounter Additional Health Concerns Infection Onset Date Last Indicated Resolved Time C. difficileComment: Eligibe to end 02/01/2022 02/01/2022 03/19/2022 3:02 PM EDT [facility] CP COVID-19Comment: Original COVID-19 test 01/23. Developed symptoms again 02/04/22 so extending isolation to 20 days. 02/04/2022 02/04/2022 02/09/20 1:57 PM EDT Eligible for precaution removal 02/13/22 documented as of this encounter Care Teams Ice Cream Van Vendor Relationship Specialty Start Date End Date None PCP - General 03/10/19 None documented as of this encounter
--- OUTSIDE RECORDS SUMMARY | 2022-04-21 11:29 | XMS_ITS | Encounter Summary ---
:1990 Author Organization [facility] [place] [address] Care Team Providers Name Role Phone None Primary Care Provider Unavailable Reason for Visit Auth/Cert Specialty Diagnoses / Procedures Referred By Contact Refer red To Contact Diagnoses Cardiac arrest intubated med misuse/covid Tex Robles MD [facility] Procedures ER IPI Admit [facility] [place] [address] Referral ID Status Reason Start Date Expiration Date Visits Requ ested Visits Authorized [id number] 1 1 Encounter Details Date Type Department Care Team Description 02/08/2022 Surgery Main Operating Room Enrique Chatterjee MD DEBRIDEMENT SKIN AND [facility] (WRVU 1.01) [facility] GENERAL [place] [id number] [place] [id number] [id number] [phone] Social History Tobacco Use Types Packs/Day Years [...] Sign Reading Time Taken Comments Blood Pressure 142/75 02/07/2022 8:00 PM EDT Pulse 109 02/08/2022 3:13 PM EDT Temperature 36.6 ??C (97.9 ??F) 02/08/2022 2:00 PM EDT Respiratory Rate 17 02/08/2022 3:13 PM EDT Oxygen Saturation 100% 02/08/2022 3:13 PM EDT Inhaled Oxygen Concentration - - Weight 111.7 kg (246 lb 4.1 oz) 02/08/2022 8:00 AM EDT Height 182.9 cm (6' 0.01) 02/05/2022 [...] ??? Mandible fracture HPI: (Per Cristina Hillman, BALL MILL OPERATOR on 01/23/2022) History provided by patient's father and chart review. The patient was found by his father at 5pm this evening after an unknown period of down-time. The patient was able to speak and reported left armpain; he also reported taking fentanyl. His father called 911. On EMS arrival he was given narcan without change to neuro exam. The transport events to [facility] are not clear, but the patient was [...] was started on levophed and transferred to [facility] for ongoing management. ?? Urine drug screen: +barbiturates, +oxycodone, +opiates Tylenol, salicylates, and ethanol were negative ?? Notable labs: WBC 27.6 Hgb 21.5 Plts 383 ?? K 7.8-> 5.4 CO2 11 BUN 32 Cr 4.37 AG 35 Lactate >10 ?? AST 3588 ALT 990 ?? Trop-I >9000 ?? SARS-CoV-2 RNA detected ? En-route to [facility] he was given boluses of ketamine for [...] escalated. On 02/10 [facility] and transferred back to the floor on [...] Allowed for activity as tolerated. Weaning dilaudid CMM OPERATOR. Seen by PT/OT with rec for rehab. 03/17: Dressings changed at bedside. Continue CMM OPERATOR weaning. Low phos, high protein, high calorie diet.IV vanc and meropenem started (-03/19) and PO vanc (- 03/26). Emesis x1. 03/18: CMM OPERATOR dc'd. BIT consulted for suboxone. Bedside dressing change. 03/19: To be dc'd to [facility] with bed availability. High UOP w/ [...] who have questions please contact the health memory care program director that requested your imaging first. Head wo Contrast (Generic) (Exam End: 01/23/2022 3:58 AM) Impression Globi pallidi infarcts. Mild cerebral edema. Thank you for letting us participate in the care of this patient. If you are a health care provider and have any questions regarding this report, please contact the number below. For patients who have questions please contact the health memory care program director that requested your imaging first. Electronically signed by: Rex Addison MD, [facility] ([phone]), at 01/23/2022 4:27 AM XR Abdomen 1 [...] who have questions please contact the health memory care program director that requested your imaging first. Electronically signed by: Jacky Mello MD, [facility] ([phone]), at 01/23/2022 8:[address] Lower Extremity [...] who have questions please contact the health memory care program director that requested your imaging first. Electronically signed by: Melita Mills MD, [facility] ([phone]), at 01/24/2022 1:[address] Chest wo [...] who have questions please contact the health memory care program director that requested your imaging first. Electronically signed by: Rex Addison MD, [facility] ([phone]), at 01/23/2022 4:[address] Upper Extremity [...] who have questions please contact the health memory care program director that requested your imaging first. Electronically signed by: Rex Addison MD, [facility] ([phone]), at 01/23/2022 4:58 AM XR Forearm Left [...] who have questions please contact the health memory care program director that requested your imaging first. Electronically signed by: Rex Addison MD, [facility] ([phone]), at 01/23/2022 7:14 AM XR Chest One [...] who have questions please contact the health memory care program director that requested your imaging first. Electronically signed by: Rex Addison MD, [facility] ([phone]), at 01/23/2022 6:56 AM XR Femur 2 views Left (Generic) (Exam End: 01/23/2022 2:04 PM) Impression No significant osseous finding. Thank you for letting us participate in the care of this patient. If you are a health care provider and have any questions regarding this report, please contact the number below. For patients who have questions please contact the health memory care program director that requested your imaging first. Electronically signed by: Lisandro Pruett MD, [facility] ([phone]), at 01/23/2022 2:10 PM XR Tibia Fibula Left (Generic) (Exam End: 01/23/2022 2:04 PM) Impression No bony abnormality seen. Thank you for letting us participate in the care of this patient. If you are a health care provider and have any questions regarding this report, please contact the number below. For patients who have questions please contact the health memory care program director that requested your imaging first. Electronically signed by: Jacky Mello MD, [facility] ([phone]), at 01/23/2022 2:07 PM XR Chest One [...] who have questions please contact the health memory care program director that requested your imaging first. Electronically signed by: Lisandro Pruett MD, [facility] ([phone]), at 01/23/2022 5:01 PM MRI Brain wo [...] who have questions please contact the health memory care program director that requested your imaging first. Electronically signed by: Bernadine Edward [facility] ([phone]), at 01/24/2022 4:[address] Angiogram [place] (Exam End: 01/24/2022 11:32 PM) Impression Normal appearance of the large and medium size arteries of the head and neck Thank you for letting us participate in the care of this patient. If you are a health care provider and have any questions regarding this report, please contact the number below. For patients who have questions please contact the health memory care program director that requested your imaging first. Angiogram Carotids [...] who have questions please contact the health memory care program director that requested your imaging first. Chest Abdomen [...] who have questions please contact the health memory care program director that requested your imaging first. Electronically signed by: Melita Mills MD, [facility] ([phone]), at 01/30/2022 3:20 PM IR Arteriogram Lower [...] 2. 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 Monitor for Right [...] a permanent image was stored. A 5 Gabonese sheath was placed. Vessel accessed: Right common femoral artery Access technique: Micropuncture set with 21 gauge needle Left pelvic angiography The left pelvic arterial system was catheterized using a 150 cm 0.035 3J guidewire, 5 Gabonese Berenstein catheter, 3 Gabonese renegade STC microcatheter and wire. Vessel catheterized: [...] who have questions please contact the health memory care program director that requested your imaging first. Electronically signed by: Nicole Vivas MD, [facility] ([phone]), at 02/08/2022 3:14 PM XR Chest One [...] who have questions please contact the health memory care program director that requested your imaging first. Electronically signed by: Boubacar Olsen MD, [facility] ([phone]), at 02/07/2022 1:37 PM MRI Brain wo [...] who have questions please contact the health memory care program director that requested your imaging first. Electronically signed by: Bernadine Edward [facility] ([phone]), at 02/11/2022 5:54 PM XR Abdomen 1 view (Generic) (Exam End: 02/13/2022 8:10 AM) Impression No obstruction. No perforation. Thank you for letting us participate in the care of this patient. If you are a health care provider and have any questions regarding this report, please contact the number below. For patients who have questions please contact the health memory care program director that requested your imaging first. Electronically signed by: Mercedes Redding MD, [facility] ([phone]), at 02/13/2022 8:[address] Abdomen & [...] who have questions please contact the health memory care program director that requested your imaging first. Femur w [...] who have questions please contact the health memory care program director that requested your imaging first. Electronically signed by: Zander Hayes DO, [facility] ([phone]), at 02/13/2022 6:27 PM XR PICC Placement [...] who have questions please contact the health memory care program director that requested your imaging first. Electronically signed by: Danielle Figueroa MD, [facility] ([phone]), at 03/03/2022 2:49 PM Discharge Exam: Last value Range last 12 hrs Temperature Temp: 36.4 ??C (97.5 ??F) Temp: -- Heart Rate Heart Rate: (!) 118 Heart Rate: [118] Blood Pressure BP: 154/87 BP: (154)/(87) Respiratory Rate Resp: 16 Resp: [16] SpO2 SpO2: 97 % SpO2: [97 %] I/Os: I/O last 3 completed shifts: In: 5040 [P.O.:5040] Out: 07679 [Urine:89532] I/O this shift: In: - Out: 500 [Urine:500] Gen: AOx3, NAD, resting comfortably CVS: Regular rate and rhythm Resp: breathing comfortably on RA Abd: soft, non-tender, nondistended Ext:: LLE wound with dressing in place,??non-tender,??L forearm wound under dressing, non tender.??Incision: dressing c/d/i. No evidence of hematoma/seroma/infection Discharge Plans: Discharge to: Rehab Name of facility: [facility] Contact information: Dr. Rosa, VNA: No Discharge Conditions/Prognosis: Stable Discharge Medications: The following medications have been prescribed for you. If you notice any adverse reactions to your medications, please contact your primary care physician immediately or go to the nearest Emergency Department. In addition to these medications, you are being prescribed Suboxone 8mg BID. Please continue this medication at [facility]. Your Medications New Medications Dose Details [...] Date: 10/22/22 Question Response Notes Preferred location? [facility] Clinics [106] Indication for study/signs & symptoms [...] 1. You will have follow-up appointments at [facility] as indicated in the ???Future Appointments and [...] on the next business day. Please call [phone] if you do not hear from us by that time, as your timely follow-up is very important to us. Your care was managed by the Trauma and Acute Care Surgery Team at [facility]. If you have any questions or concerns, please feel free to contact us. Provider Contact Information: General Surgery: [facility] (after business hours): CC: Compartment syndrome Primary Care Physician: None General Instructions Substance Use Treatment, Harm-Reduction, and Relapse Prevention Resources Residential Treatment: [facility] [address] [place], [place] [id number] [address] [address] Intensive Outpatient Programs: Quitting Time [facility] [address] [place] [address] Health Care and Rehabilitative Services [address] [place] [address] [phone] Individual Counseling: [facility] [address] [place] [address] ALEX Whitlock [address], [address] [place] [address] ----and---- [address] [place] [address] [facility] [address], [address] [place], [place] [id number] Offers EMDR Therapy You may also search www.psychologyExagen Diagnosticsday.com or BioSTL for therapists in your area. EMDR Therapy [...] completed in fewer sessions than other psychotherapies. www.emdria.org/xeumn-qczd-xtrnjzu/ Medication Assisted Therapy: [facility] [address] [place], [place] [id number] [address] [id number] [facility] [address] [place] [address] [place] [address] [facility] [address] [place] [address] [place] [address] Peer Support Groups Alcoholics Anonymous (AA) [place]: , www.nhaa.net Narcotics Anonymous (NA) [place]: , www.gmana.org Community Peer Support Center [facility] [address] [place], [place] Online AA and NA Meetings AA, NA, Refuge Recovery, SMART Recovery www.Medmonk.Glassdoor AA Video Meetings www.aa-intergroup.org/directory_audio-video.php AA Text Chat Meetings www.aa.intergroup.org/directory.php NA Video Meetings www.virtual-na.org/meetings NA Text Chat Meetings Www.neveraloneclub.org SMART Recovery Meetings via Zoom 5:00-6:00pm, free and open to all To join Zoom meetin. Visit www.Sleepy's 2. Click on calendar on top of toolbar 3. Find the correct meeting date and time 4. Click the zoom link and enter password provided Additional Substance Use Treatment Resources Www.vtaddictionservices.org www.healthvermont.gov/alcohol-drugs www.wixozow669.org/ (Search for Substance Use) www.Solar Notion/ Www.rethinkingdrinking.niaaa.nih.gov/ www.[facility].gov/muwiqxrwnz-atboffbj-gcovpfdir/ueqlmhdgrrda-iyjrjmu-ouxw/treatment -practitioner-supervisor roving Mental [facility] Crisis [facility] Crisis Line: Dial 988 www.[facility].gov/find-help/988 Harm-Reduction Resources Mobile operations. For more information about receiving supplies: including syringe exchange, fentanyl test strips, and naloxone, or to schedule an appointment: [place] clients call and leave a message for Graciela (ext. 105) or Doc Liu (ext. 104). [place] clients call to speak with Doc Choi [...] is being approved. Online Stress Reduction Resources www.Cloverhill Enterprises.Glassdoor/videos-features/videos/eofbajgnm-phniucyvg-1-7-8-breath/ www.Digital Railroad.org/2013/uqhgrvryo-ygmwzejxw-muxsaqd-moment/ www.headspace.Glassdoor/ www.mindful.org/ www.freeSolar NotiondfRe2youness.org/ Employment Agency [employer] [address] [place] [address] secondchances@[employer] Providing an opportunity for successful employment and recovery by empowering individuals to manage challenges because of substance use addiction and past convictions. CC: Compartment Syndrome Signed: Vance Curiel MD PGY1 Acute Care Surgery Team Pager [phone] 03/23/2022 4:18 PM I saw and evaluated [...] this encounter Discharge Instructions Discharge InstructionsMiguel Prather, BALL MILL OPERATOR - 02/12/2022 3:40 PM EDT Substance Use Treatment, Harm-Reduction, and Relapse Prevention Resources Residential Treatment: [facility] [address] [place], [place] [id number] [facility] [address] [place], [place] [address] Intensive Outpatient Programs: [facility] [address] [place], [place] [id number] Health Care and Rehabilitative Services [address] [place] [address] [phone] Individual Counseling: [facility] [address] [place], [place] [address] ALEX Whitlock [address] [place] [address] ----and---- [address] [place], [place] [address] [facility] [address] [place], [place] [id number] Offers EMDR Therapy You may also search www.psychologytoday.com or BioSTL for therapists in your area. EMDR Therapy [...] completed in fewer sessions than other psychotherapies. www.emdria.org/rhtws-gemg-sxyctkj/ Medication Assisted Therapy: [facility] [address] [place], [place] [address] [address] [address] [facility] [address] [place] [address] [place] [address] [facility] [address] [place] [address] [place] [address] Peer Support Groups Alcoholics Anonymous (AA) [place]: , www.nhaa.net Narcotics Anonymous (NA) [place]: , www.gmana.org Community Peer Support Center [facility] [address] [place], [place] Online AA and NA Meetings AA, NA, Refuge Recovery, SMART Recovery www.ImageShack AA Video Meetings www.aaamaysimintergroup.org/directory_audio-video.php AA Text Chat Meetings www.aaEverspringintergroup.org/directory.php NA Video Meetings www.StreamBase Systemsna.org/meetings NA Text Chat Meetings Www.Money360aloneclub.org SMART Recovery Meetings via Zoom 5:00-6:00pm, free and open to all To join Zoom meeting: Visit www.Sleepy's Click on calendar on top of toolbar Find the correct meeting date and time Click the zoom link and enter password provided Additional Substance Use Treatment Resources Www.vtaddictionservices.org www.healthvermont.gov/alcohol-drugs www.[place] [address].org/ (Search for Substance Use) www.TUBE.Glassdoor/ Www.rethinkingdrinking.niaaa.nih.gov/ www.samhsa.gov/nhetnpfklz-nvngbuja-vwhxhnofy/odywsurfzkug-dkgdjqm-tgyl/treatment -practitioner-supervisor ro[facility] Crisis Line: Dial 988 www.samhsa.gov/find-help/988 Harm-Reduction Resources Mobile Tamtron. For more information about receiving supplies: including syringe exchange, fentanyl test strips, and naloxone, or to schedule an appointment: [place] clients call and leave a message for Graciela (ext. 105) or Doc Liu (ext. 104). [place] clients call to speak with Doc F. [...] is being approved. Online Stress Reduction Resources www.Greysox/videos-features/videos/ofktavbcz-fhazlywgo-4-7-8-breath/ www.Digital Railroad.org/2013/flabtooog-adeempkwa-zlnksmq-moment/ www.Readiness Resource Group/ www.mindful.org/ www.SterraClimb.org/ Employment Agency [employer] [address] [place] [address] secondMeterHeroncBramasol@[employer] Providing an opportunity for successful employment and [...] 1. You will have follow-up appointments at [facility] as indicated in the ???Future Appointments and [...] appointment on the next day. Please call [phone] if you do not hear from us by that time, as your timely follow-up is very important to us. Your care was managed by the Trauma and Acute Care Surgery Team at [facility]. If you have any questions or concerns, please feel free to contact us. Provider Contact Information: General Surgery: [facility] (after business hours): CC: Compartment syndrome Primary Care Physician: None AttachmentsThe following attachments cannot be sent through Care Everywhere. Compartment Syndrome (Swazi)documented in this encounter Medications at Time of [...] 03/23/2022 3:13 PM EDT [facility] Report given to ÁNGEL Roland. Ambulance arrived 1430 to transport pt. Piccremains in place. Hernán Hobbs - 03/23/2022 2:11 PM EDT Office of Care Management/Plush Dresser Patient Name: Alix Holland : 1990 Patient has been offered an Acute IRF bed at [facility]. [facility] arranged for a BLS transport at 1430. Ambulance will need: Medicare ambulance form completed and signed (MD or Product Introduction Manager RN/POCKET MARKER) Copy of patient demographics [place] or [place] [facility] DNR/DNI order, if active MD to MD report to Dr. Rosa at [phone]. Please call Nursing Report to [phone], ask for refinery operator vapor recovery unit. Info to accompany patient: Copies of Medication Administration Records and IV sheets for past 10 days. Plan: Plush Dresser will be available to the patient and Product Introduction Manager-RN and/or Game Warden for further assistance. Patient will be discharged to: [place] [address] Hernán Hobbs Plush Dresser Sivakumar Trevino PTA - 03/23/2022 1:25 PM [...] managment/propulsion training. Total Minutes, Physical Therapy: 55 ([phone]) Billing Code: TESx2, TEFx2 Sivakumar TrevinoSVETLANA Pager: [phone] Physical Therapy Inpatient Rehabilitation Department Lizzy Love RN - 03/23/2022 12:41 PM EDT Physician Certification Statement for Non-Emergency Ambulance Services Section I - General Information Alix Holland 1990 Medicaid Number:[id number] Transport Date: 03/23/2022 (PCS is valid for round trips on this date and for all repetitive trips in the 60-day range as notedbelow.) Origin: [facility] Destination: [facility] Acute Rehabilitation and Sub-Acute (Swing) Rehab Levels of Care [address] [place] [address] Is the patient's stay covered under Medicare [...] wheelchair van (i.e. seated during transport, without medical geneticist or monitoring?): No 4) In addition to [...] by the Centers of Medicare and MedicaidServices ([facility]) to support the determination of medical necessity [...] pt need to f-u with surgeon or HYDROGEN CELL TENDER (please indicate reason if attending provider): Attending [...] and left superior gluteal artery via R JOINTER MACHINE OPERATOR access. Reason for intervention: Follow up Nutrition [...] 02/05/2022 TRIG 359 01/26/2022 CRP <3.0 04/26/2021 [id number] 02/03/2022 25OHVITD 12 (L) 02/19/2022 SFOLATE [...] encounter: 78.2 kg (172 lb 8 oz). [place] Body Weight: 80.9kg- [place] Usual Body Weight: [...] Based on IBW 80.9kg Estimated needs: Calories: 0206-4195 (25-30kcal/kg) Protein: 120 grams (1.5 g/kg IBW) Nutrition Focused Physical Exam (NFPE): Performed on 03/01/22. Subcutaneous fat loss at Orbital region: Moderate Upper arm region (triceps/biceps): Mild Thoracic and lumbar region (ribs, lower back and maxillary line): Not assessed Lean muscle loss to Episcopalian region (temporalis muscle): Moderate Clavicle bone region [...] while inpatient THANKS KAYLAH JANG RD Pager #:[phone] Josh Peck RN - 03/22/2022 6:30 PM [...] no drainage. aquafor applied generously ,Gauze and tamei wrapped. Left hip tunneled wet gauze applied. [...] difficulty obtaining soboxone prescription. [facility]. Dressing changes today by nursing. Neuro [...] Gomez MD PGY1 Acute Care Surgery pager [phone] I saw and evaluated the patient with [...] Hidalgo MD PGY5 Acute Care Surgery pager [phone] Attending Addendum I have seen and examined [...] Hidalgo MD PGY5 Acute Care Surgery pager [phone] Attending Addendum I have seen and examined [...] 03/19/2022 4:11 PM EDT Per request this typewriter tester updated patient on inpatient rehabilitation facility search, informed that [facility] is following the referral, however at this time does not have acute rehab bed availability till 03/22/2022. Ailx would like referral to [facility] which is closed to home. Discussed that [facility] is SNF with less therapy hours available. Patient verbalized understanding and in would like referral placed to: [address] [address] RS please submit referral with all supporting [...] Started Suboxone per Psych recs. - Discontinued CMM OPERATOR Dilaudid yesterday (03/18). - Discontinued IV Vanc [...] is ongoing. Possibly will be discharged to [facility] but there are no beds currently. He may need a COVID test prior to discharge per facility request; otherwise, monitor with weekly CBCs and BMPs. He had his dressings changed at the bedside yesterday with Dr. Chatterjee who used Aquafor instead of silver gel. CMM OPERATOR (dilaudid) was discontinued yesterday (03/18). He completed [...] status; PT/OT consulted: recommend acute rehab - Pmp sent requests to 2 locations with ongoing [...] plan to change again today. - D/C CMM OPERATOR (Dilaudid) today. - On IV Vanc and [...] is ongoing. Possibly will be discharged to [facility] but there are no beds currently. He had his dressings changed at the bedside yesterday with Dr. Chatterjee who used bacitracin; completed another dressing change today with Aquafor instead of silver gel. CMM OPERATOR (dilaudid) was discontinued today. Diet remains as high calorie/protein with the addition of TUMS at meals. He will complete a course of IV Vancomycin and Meropenem (ends 03/19) before switching to PO Vancomycin (ends 03/26). Plan: Neuro: #Pain - AMERICA PO Tylenol 1000 mg q8h - D/c dilaudid CMM OPERATOR - PO Oxycodone 10-15 PRN Q4 #Polysubstance [...] status; PT/OT consulted: recommend acute rehab - Pmp sent requests to 2 locations with ongoing [...] 03/26) as recommended by ID - Weaning CMM OPERATOR (dilaudid) with the plan to d/c it [...] managment/propulsion training. Total Minutes, Physical Therapy: 60 ([id number]) Billing Code: TEFx2, GT iSvakumar Trevino, CROWN PERFORATOR OPERATOR Pager: [phone] Physical Therapy Inpatient Rehabilitation Department Jeanette Chatterjee [...] 03/26) as recommended by ID - Weaning CMM OPERATOR (barbara) with the plan to d/c it [...] another dressing change tomorrow with silver gel. CMM OPERATOR will continue to be weaned. Diet was changed from low phosphorus to high calorie/protein with the addition of TUMS at meals. Additionally, his antibiotics were restarted today; he will complete a course of IV Vancomycin and Meropenem (ends 03/19) before switching to PO Vancomycin (ends 03/26). Plan: Neuro: #Pain - [place] PO Tylenol 1000 mg q8h - dilaudid CMM OPERATOR, weaning - PO Oxycodone 10-15 PRN Q4 [...] Dispo: Floor status; PT/OT consulted, recommend acute rehab--Pmp sent requests to 2 locations. Code Status: [...] thigh, calf forearm and wrist (01/23) and??I+D CEZAR LLE (01/26). Previously completed treatment??for aspiration pneumonia [...] - Now off of antibiotics - Weaning CMM OPERATOR (dilaudid) Social History: Home setup: Pt lives [...] had pt perform gastroc stretch with leg e commerce marketing manager MMT L Gastroc 2-/5 Balance: Seated [...] Pt limited in distance due to his CMM OPERATOR pump, but once DCd pt could likely [...] managment/propulsion training. Total Minutes, Physical Therapy: 40 ([id number]) Billing Code: DEACON SAMUELSSVETLANA Pager: [phone] Physical Therapy Inpatient Rehabilitation Department Jairo Kirkland [...] 431 msec Imaging: External records in - [facility]: Yes - CareEverywhere: No - Paper records: [...] Felix MD Infectious Diseases Fellow- PGY4 Pager: [phone] 03/16/2022 2:15 PM ID Attending I have [...] LUE ?? Social History: Patient lives in [place], [place] with his dad. Home Setup: [address], 2 level home, bedroom on 1st level, bathroom available on 1st level, has a tub shower downstairs. DME: none Baseline ADL/Mobility: Pt reports he was independent w/ ADL's and IADL's, had worked for a [employer] He enjoys hunting and fishing. He reports he likes [employer] music ?? Interval History: Pt to OR last week for LUE and LLE grafts. Per MD Note 03/16 - Now off of bedrest - Dressing change in the OR yesterday - Now off of antibiotics - Weaning CMM OPERATOR (dilaudid) Precautions/Special Considerations: SOAP/WATER; fall risk, LUE/LLE WBAT, L forearm and L thigh grafts, CMM OPERATOR S: I need some help with that [...] 2-4 times/wk Total Minutes, Occupational Therapy: 30 (critical access hospital x2 ([phone]) Pager: [phone] [facility] Occupational Therapy Rehabilitation Department Kaylah [...] and left superior gluteal artery via R JOINTER MACHINE OPERATOR access. Reason for intervention: Follow up Nutrition Recommendations: Regular diet ; enc high protein high calorie Given tendency toward intake < est needs, suggest omit low phosphorus restriction and give TUMs w/ meals Limit NPO to periods to only when necessary to avoid missing nutrition windows Encourage pt to continue double portions protein and milk with meals Discussed above w/ E. Sergio HARTLEY #[id number] Active Orders Diet High Protein - High [...] 02/05/2022 TRIG 359 01/26/2022 CRP <3.0 04/26/2021 [id number] 535 02/03/2022 25OHVITD 12 (L) 02/19/2022 SFOLATE [...] encounter: 78.9 kg (173 lb 15.1 oz). [place] Body Weight: 80.9kg- [place] Usual Body Weight: [...] Based on IBW 80.9kg Estimated needs: Calories: 1868-0029 (25-30kcal/kg) Protein: 120 grams (1.5 g/kg IBW) Nutrition Focused Physical Exam (NFPE): Performed on 03/01/22. Subcutaneous fat loss at Orbital region: Moderate Upper arm region (triceps/biceps): Mild Thoracic and lumbar region (ribs, lower back and maxillary line): Not assessed Lean muscle loss to Episcopalian region (temporalis muscle): Moderate Clavicle bone region [...] while inpatient THANKS KAYLAH JANG RD Pager #:[phone] Jeanette Chatterjee MD - 03/16/2022 5:38 AM [...] - Now off of antibiotics - Weaning CMM OPERATOR (dilaudid) Objective Vitals: Last Value Range last [...] Their notes will be sent by the Pmp to the rehab facilities. Will likely have dressing change tomorrow. Currently weaning his dilaudid CMM OPERATOR. Plan: Neuro: #Pain - [place] PO Tylenol 1000 mg q8h - dilaudid CMM OPERATOR, weaning - PO Oxycodone 10-15 PRN Q4 [...] C diff precautions for 4 weeks until Aug 29th. 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 Patient states pain is 9/10, PRN medication given and pt repositioned. Dilaudid CMM OPERATOR infusing with CMM OPERATOR doseonly. No complaints of chest pain/SOB. No [...] recommendations below - Pain remains well-controlled with CMM OPERATOR and decreasing - Tolerating High calorie, high [...] bedrest. Plan: Neuro: [place] PO Tylenol, dilaudid CMM OPERATOR, PO Oxycodone 10-15 PRN Q4, Zofran PRN, [...] Oxycodone given. Takes sips of water easily. CMM OPERATOR re-started per order. Pt. Self dosing. Has [...] PICC line placed 03/03/2022 External Record in [facility]: Yes Care Everywhere:No Paper Record: No Assessment/Plan: [...] Felix MD Infectious Diseases Fellow- PGY4 Pager: [phone] 03/15/2022 8:55 AM I have discussed case with Dr. Jairo Kirkladn This note was created using Joyride voice recognition software. ID Attending I have [...] PM EDT OUTCOME EVALUATION NOTE: OUTCOME SUMMARY: Ailx had a good shift today. Tachycardic and hypertensive. A+Ox4. Reporting 8 to 10/10 pain, using dilaudid CMM OPERATOR and PRN oxygen given x2. No BM [...] recommendations below - Pain remains well-controlled with CMM OPERATOR and decreasing - Tolerating High calorie, high [...] that time. Plan: Neuro: [place] PO Tylenol, CMM OPERATOR, PO Oxycodone 10-15 PRN Q4, Zofran PRN [...] kerlix, coban - Pain remains well-controlled with CMM OPERATOR - Tolerating High calorie, high protein diet [...] 1g Q8H. Plan: Neuro: [place] PO Tylenol, CMM OPERATOR PO Oxycodone 10-15 PRN Q4, Zofran PRN [...] 4 Acute Care Surgery 03/13/22 Team Pager [phone] A medical student assisted me in the [...] 10:41 AM EDT Patient came back to [facility] from PACU via bed in stable condition. Amy Pineda RN - 03/13/2022 10:31 AM EDT 0931 Pt arrived to PACU lethargic, oral airway in place. Connected to monitors, alarms set and reviewed. VSS. LUE/LLE dressings CDI, only to be changed by MD. RLE dressings with dried drainage. 0945 Pt more awake, c/p pain, utilizizing CMM OPERATOR. 1000 Tolerating sips of lenora opal. Report given to ÁNGEL Deleon on [facility] Adrienne Tejada RN - 03/13/2022 7:52 AM [...] suction - Pain remains well controlled with CMM OPERATOR - Tolerating High calorie, high protein diet [...] which will continue for 10 days (until 8/1/22) following disco ntinuation of cefepime. His leukocytosis [...] Peterson Acute Care Surgery 03/12/22 Team Pager [phone] A medical student assisted me in the [...] out of bed. JASWINDER CHUNG, SVETLANA Pager: [phone] Physical Therapy Inpatient Rehabilitation Department Adrienne Tejada [...] any alarming from wound vac, immediately page [phone]. S/p 3 days of IV iron, now [...] 03/14 for OR. If any alarming, page [phone]. - s/p multiple fasciotomies, OR debridements, and [...] VAC particularly not holding suction please page [phone] immediately given that thiswill affect skin graft take -High-protein high-calorie low Phos diet -Plan to return to the operating room on Tuesday for VAC removal, bedrest until then -CMM OPERATOR for pain control will wean as able Veto Hidalgo MD PGY 5 Acute care surgery pager [phone] Marylou Retana RN - 03/10/2022 7:12 PM EDT Patient arrived back to unit from PACU @ approximately 1630. VSS on RA, drowsy but arouses to voice.CMM OPERATOR in place, pt continues to report 10/10 [...] Daily Progress Note Admission Date: 01/23/2022 ID: lAix Holland is a 31 y.o. [...] completed 03/01/22 (02/25), Stop weekly EPO (note 7/30), start vitamin D supplementation, start regular multivitamin. [...] 4 03/10/22 Acute Care Surgery Team Pager [phone] A medical student assisted me in the [...] LUE ?? Social History: Patient lives in [place], [place] with his dad. Home Setup: [address] [facility], 2 level home, bedroom on 1st level, bathroom available on 1st level, has a tub shower downstairs. DME: none Baseline ADL/Mobility: Pt reports he was independent w/ ADL's and IADL's, had worked for a [employer] He enjoys hunting and fishing. He reports [...] Pt demonstrated ability to doff socks with president and don socks with sock aid ?? [...] 2-4 times/wk Total Minutes, Occupational Therapy: 32 (critical access hospital x2 ([phone]) Pager: [phone] [facility] Occupational Therapy Rehabilitation Department Tanesha [...] Denilson Muniz - 03/08/2022 3:14 PM EDT [employer] Encounter Note Patient Name: Alix Holland : [id number] MR#: [id number] Admit Date: 01/23/2022 12:29 AM Hospital Day 44 days Narrative:Visited to introduce and assess acceptance of [employer] services.Patient was not available and I will [...] thigh, calf forearm and wrist (01/23) and??I+D LUESHAMAR (01/26). Previously completed treatment??for aspiration pneumonia versus [...] IADLs, drives, used to work for a [employer] company but is not currently working. Enjoys [...] Therapy: 40 TE-F x 3 JASWINDER CHUNG, CROWN PERFORATOR OPERATOR 03/08/2022 Pager: [phone] Physical Therapy Inpatient Rehabilitation Department Lizzy Miranda, [...] and left superior gluteal artery via R JOINTER MACHINE OPERATOR access. Reason for intervention: Follow up Nutrition [...] 02/05/2022 TRIG 359 01/26/2022 CRP <3.0 04/26/2021 [id number] 535 02/03/2022 25OHVITD 12 (L) 02/19/2022 SFOLATE [...] encounter: 77.4 kg (170 lb 11.2 oz). [place] Body Weight: 80.9kg- [place] Usual Body Weight: [...] Based on IBW 80.9kg Estimated needs: Calories: 8696-7676 (25-30kcal/kg) Protein: 120 grams (1.5 g/kg UBW) Nutrition Focused Physical Exam (NFPE): Performed on 03/01/22. Subcutaneous fat loss at Orbital region: Moderate Upper arm region (triceps/biceps): Mild Thoracic and lumbar region (ribs, lower back and maxillary line): Not assessed Lean muscle loss to Episcopalian region (temporalis muscle): Moderate Clavicle bone region [...] while inpatient THANKS Lizzy Miranda RD Pager #:[phone] Nancy Chahal MD - 03/08/2022 2:35 PM [...] LLE wound vac change was performed at [facility]. Healthy granulation tissue was found in [...] WOUND VAC NOTE Alix Holland 31 y.o./male [id number] DATE: 03/07/22 Admit Date: 01/23/2022 12:29 AM [...] L thigh, calf forearm and wrist (01/23) and??I+SHAMAR LONGO (01/26). Previously completed treatment??for aspiration pneumonia versus [...] Therapy: 30 TE-F x 2 JASWINDER CHUNG, CROWN PERFORATOR OPERATOR 03/05/2022 Pager: [phone] Physical Therapy Inpatient Rehabilitation Department Tanesha Patel [...] LUE ?? Social History: Patient lives in [place], [place] with his dad. Home Setup: [address], 2 level home, bedroom on 1st level, bathroom available on 1st level, has a tub shower downstairs. DME: none Baseline ADL/Mobility: Pt reports he was independent w/ ADL's and IADL's, had worked for a [employer] company. He enjoys hunting and fishing. He reports he likes [employer] music ?? Interval History: OR yesterday for [...] 2-4 times/wk Total Minutes, Occupational Therapy: 35 (critical access hospital x2 ([phone]) Pager: [phone] [facility] Rehabilitation Department Jayme [...] thigh, calf forearm and wrist (01/23) and??I+D LUESHAMAR (01/26). Previously completed treatment??for aspiration pneumonia versus [...] IADLs, drives, used to work for a [employer] company but is not currently working. Enjoys [...] Therapy: 30 TE-F x 2 JASWINDER CHUNG, CROWN PERFORATOR OPERATOR 03/03/2022 Pager: [phone] Physical Therapy Inpatient Rehabilitation Department Jayme Armstrong [...] LUE ?? Social History: Patient lives in [place], [place] with his dad. Home Setup: [address], 2 level home, bedroom on 1st level, bathroom available on 1st level, has a tub shower downstairs. DME: none Baseline ADL/Mobility: Pt reports he was independent w/ ADL's and IADL's, had worked for a [employer] He enjoys hunting and fishing. He reports [...] 2-4 times/wk Total Minutes, Occupational Therapy: 35 (critical access hospital x2 ([phone]) Pager: [phone] [facility] Occupational Therapy Rehabilitation Department Madhavi [...] Given lenora opal and water at bedside, [place] sandwich requested. LUE wound VAC dressing intact [...] Denilson Muniz - 03/01/2022 3:38 PM EDT [facility] Encounter Note Patient Name: Alix Holland : [id number] MR#: [id number] Admit Date: 01/23/2022 12:29 AM Hospital Day [...] and left superior gluteal artery via R JOINTER MACHINE OPERATOR access. Reason for intervention: Follow up Nutrition [...] 02/05/2022 TRIG 359 01/26/2022 CRP <3.0 04/26/2021 [id number] 535 02/03/2022 25OHVITD 12 (L) 02/19/2022 SFOLATE [...] encounter: 82.1 kg (180 lb 14.4 oz). [place] Body Weight: 80.9kg- [place] Usual Body Weight: [...] Based on IBW 80.9kg Estimated needs: Calories: 6660-7870 (25-30kcal/kg) Protein: 120 grams (1.5 g/kg UBW) - pt on iHD w/ wound vacs Nutrition Focused Physical Exam (NFPE): Performed on 03/01/22. Subcutaneous fat loss at Orbital region: Moderate Upper arm region (triceps/biceps): Mild Thoracic and lumbar region (ribs, lower back and maxillary line): Not assessed Lean muscle loss to Episcopalian region (temporalis muscle): Moderate Clavicle bone region [...] inpatient Thank you, KAYLAH JANG RD Pager #:[phone] Josh Peck RN - 03/01/2022 2:00 AM [...] PM EDT Hypertension/Nephrology Inpatient Follow-up Alix Holland [id number] 1990 ID: 31 y.o. old male seen [...] changed vitamin D3 400 U -> D2 32253 weekly for six weeks given his severe deficiency. Would recommend rechecking a level after this (likely after discharge). - Continue daily MV - Avoid NSAIDs, contrast, and other nephrotoxic agents as able - Agree with iron studies on 03/01 as he will likely need replacement This case was discussed with staff anesthesiology teacher Dr. Thomas. We will sign off at this time. Please do not hesitate to contact me with questions or concerns: Ph [phone] Pg [phone]. Dominic Almanza MD Nephrology Fellow, PGY-4 Associated [...] protein intake. Dania Thomas MD Nephrology Pager: [phone] Sixto Medina MD - 02/28/2022 10:28 AM [...] debridements and wound vac changes. Wound vac om pad replaced on left lower extremity due [...] requires dialysis; they recommended starting weekly EPO 99170 units, given 02/25. PIV access unable to [...] PM EDT Hypertension/Nephrology Inpatient Follow-up Alix Holland [id number] 1990 ID: 31 y.o. old male seen [...] replacement This case was discussed with staff anesthesiology teacher Dr. Thomas. We will follow peripherally at this time.Please do not hesitate to contact me with questions or concerns: Ph [phone] Pg [phone]. Dominic Almanza MD Nephrology Fellow, PGY-4 Associated attestation - Dania Thomas MD - 02/27/2022 5:33 PM EDT The patient was seen and examined with the nephrology fellow. Please see the nephrology fellow's note from today for details. I have reviewed the fellow's note and agree with the exam, and assessment and plan. Dania Thomas MD Nephrology Pager: [phone] Sixto Medina MD - 02/26/2022 3:14 PM [...] operative plan per primary team Alonzo Juan Adin, MS4 02/26/2022 2:12PM A medical student assisted [...] 2.39 (2.94), Nephrology following; Gave weekly EPO 04718 yesterday, start IV iron after completing Vancomycin [...] requires dialysis; they recommended starting weekly EPO 79393 units, given yesterday. Will obtain PIV access [...] Jareth Nino MD, MPH Section of Nephrology #[id number] Dania Cotter RN - 02/26/2022 10:02 AM EDT 0950 Patient admitted to PACU. Hand off received from Tamika WESTON, [facility] care assumed. Assessments as documented. Monitors on, alarms audible and individualized to patient. 1015 Hand off to ÁNGEL Ontiveros [facility] Glenna Bejarano OT - 02/26/2022 8:44 AM [...] Voiding adequate amounts in urinal. Patient worked w/[employer] and stood at bedside. Lift used to [...] reviewed with no apparent indication for urgent BUYING INTERN. Access: Can remove dialysis catheter. We are [...] Jareth Nino MD, MPH Section of Nephrology #[id number] Jaswinder Chung [facility] - 02/25/2022 12:05 PM EDT Physical [...] IADLs, drives, used to work for a [employer] company but is not currently working. Enjoys [...] 30 TE-F x 2 JASWINDER CHUNG, SVETLANA 02/25/2022 Pager: [phone] Physical Therapy Inpatient Rehabilitation Department Sixto Medina [...] 28 (L) >=60 mL/min/1.73 m?? Vidhya Peñaloza #[id number] Associated attestation - Jareth Nino MD - [...] Nancy Chahal MD 02/24/2022 4:29PM Natalia Fong I OT - 02/24/2022 2:20 PM EDT Occupational [...] LUE ?? Social History: Patient lives in [place], [place] with his dad. Home Setup: [address], 2 level home, bedroom on 1st level, bathroom available on 1st level, has a tub shower downstairs. DME: none Baseline ADL/Mobility: Pt reports he was independent w/ ADL's and IADL's, had worked for a [employer] He enjoys hunting and fishing. He reports he likes [employer] music ?? 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 Patient is now activity as tolerated with BUE/LE WBAT. See updated goals below. Dai eGrald OTR/L Pager [phone] Goals updated & extended to 03/08/22: -Patient [...] and left superior gluteal artery via R JOINTER MACHINE OPERATOR access. Reason for intervention: Follow up Nutrition [...] 02/05/2022 TRIG 359 01/26/2022 CRP <3.0 04/26/2021 [id number] 535 02/03/2022 SFOLATE 3.9 (L) 02/03/2022 IRON [...] encounter: 104.3 kg (229 lb 15 oz). [place] Body Weight: 80.9kg- [place] Usual Body Weight: [...] Based on IBW 80.9kg Estimated needs: Calories: 6868-6541 (25-30kcal/kg) Protein: 120 grams (1.5 g/kg UBW) [...] inpatient Thank you, Charlotte Castañeda RD Pager #:[phone] Jaswinder Chung, CROWN PERFORATOR OPERATOR - 02/23/2022 11:00 AM EDT Physical Therapy [...] IADLs, drives, used to work for a [employer] company but is not currently working. Enjoys [...] x 3 JASWINDER CHUNG PTA 02/23/2022 Pager: [phone] Physical Therapy Inpatient Rehabilitation Department Sixto Medina [...] MS4 02/24/2022 Acute Care Surgery Team pager [phone] A medical student assisted me in the [...] Hgb < 7 ID: - 02/08 and 7/12 wound cx: Pseudomonas, serratia - ID consulted [...] MD 02/22/2022 Acute Care Surgery Team pager [phone] Attending Addendum I have seen and examined [...] Melissa Gonzales MD Acute Care Surgery Pager [phone] Kevon Brian MD - 02/22/2022 10:29 AM [...] 22.2* PLATELET [phone] Recent Labs 02/22/2210702/21/2233702/20/22 0445 NA 137 136 136 K 5.1* [...] Code Status: Attempt Cardiopulmonary Resuscitation - Inpatient Mleissa Gonzales MD 02/21/2022 Acute Care Surgery Team pager [phone] Associated attestation - Gela Novak MD - [...] fasciotomy 01/26: Debridements and wound vac change 7/1: Debridement of fasciotomies, closure of L lower [...] Dispo: - Floor status - PT/OT consulted 6/29, appreciate recs Code Status: Attempt Cardiopulmonary Resuscitation - Inpatient Alonzo Oakley, 4 02/20/2022 Acute Care Surgery Team pager [phone] A medical student assisted me in the [...] Melissa Gonzales MD Acute Care Surgery Pager [phone] Melissa Gonzales MD - 02/19/2022 2:52 PM [...] MD 02/19/2022 Acute Care Surgery Team pager [phone] Associated attestation - Gela Novak MD - [...] mL) subcutaneous injection 5,000 Units 5,000 Units [id number] [facility] Collette Dye MD 5,000 Units at 02/18/22 [...] Q8H Collette Zacarias MD 1,000 mg at 02/18/22 1420 Recent [...] /HPF Stippled RBCs Present >1/HPF Vidhya Peñaloza #[id number] Dai Duarte, OT - 02/18/2022 2:48 PM [...] severe rhabdomyolysis with compartment syndrome and resultant LATHEA. Now??s/p??fasciotomies of L thigh, calf forearm and [...] LUE ?? Social History: Patient lives in [place], [place] with his dad. Home Setup: [address], 2 level home, bedroom on 1st level, bathroom available on 1st level, has a tub shower downstairs. DME: none Baseline ADL/Mobility: Pt reports he was independent w/ ADL's and IADL's, had worked for a [employer] company. He enjoys hunting and fishing. He reports he likes country music ?? Interval History: (Per MD note): NAEO Precautions/Special Considerations: SOAP/WATER; At risk to fall, flexiseal, L UE and L LE NWB; L forearm wound vac; CMM OPERATOR; Femoral A-line S: Ill try it I [...] position in bed, all needs met, call tsarks within reach ?? Cognition: ?? Behavior / [...] Total Minutes, Occupational Therapy: 60 (tef x4 [phone]) Pager: [phone] AMA QURESHI, PEG Occupational Therapy Rehabilitation Department *POC reviewed between PEG/OTR. Patient is now activity as tolerated with BUE/LE WBAT. See updated goals below. Dai Duarte OTR/L Pager [phone] Goals updated & extended to 03/08/22: -Patient [...] MD 02/18/2022 Acute Care Surgery Team pager [phone] Associated attestation - Gela Novak MD - [...] hip and leg. PO oxycodone given per MAR with good effect. Numbness/tingling present in LUE [...] mL) subcutaneous injection 5,000 Units 5,000 Units [id number] Collette Zacarias MD 5,000 Units at 02/17/22 [...] Moderate Neutrophils No microorganisms seen. Vidhya Kaur #[phone] Associated attestation - Bambi [...] returned to the OR x2 (02/04 and 7/8) for irrigation and debridement of fasciotomy wounds, [...] conversation, follows commands Labs: Recent Labs 02/17/22 03402/16/22 0405 02/15/22 0350 WBC 17.0* 19.0* 22.1* [...] MD 02/17/2022 Acute Care Surgery Team pager [phone] Associated attestation - Gela Novak MD - [...] Melissa Gonzales MD Acute Care Surgery Pager [phone] Tasha Matthews OTA - 02/17/2022 8:00 AM [...] better. However, at this time, he needs BUYING INTERN. - Hemodynamically stable. PHYSICAL EXAM: Last value [...] mL) subcutaneous injection 5,000 Units 5,000 Units [id number] Collette Zacarias MD 5,000 Units at 02/16/22 [...] (H) 0.00 - 0.04 x10(3)/mcL Vidhya Peñaloza #[id number] Associated attestation - Bambi Pressley MD - [...] MD 02/16/2022 Acute Care Surgery Team pager [phone] Associated attestation - Gela Novak MD - [...] and left superior gluteal artery via R JOINTER MACHINE OPERATOR access. Reason for intervention: Follow up Nutrition [...] 02/05/2022 TRIG 359 01/26/2022 CRP <3.0 04/26/2021 [id number] 535 02/03/2022 SFOLATE 3.9 (L) 02/03/2022 IRON [...] encounter: 104.3 kg (229 lb 15 oz). [place] Body Weight: 80.9kg- [place] Usual Body Weight: [...] Based on IBW 80.9kg Estimated needs: Calories: 3817-6406 (25-30kcal/kg) Protein: 120 grams (1.5 g/kg UBW) [...] up while inpatient KAYLAH JANG RD Pager #:[phone] Vidhya Peñaloza MD - 02/15/2022 6:47 PM [...] with PMHx drug abuse, initially admitted to [facility] after he had cardiac arrest sec to [...] 1,000-10,000 Units 1,000-10,000 Units IntercatheterOnce in dialysis Cecilio Dunaway MD ??? heparin (porcine) (1,000 units/mL) injection [...] mL) subcutaneous injection 5,000 Units 5,000 Units [id number] [facility] Veto Hidalgo MD 5,000 Units at 02/15/22 1629 ??? vancomycin (Vancocin) capsule 125 mg 125 mg Oral BID Veto Hidalgo MD 125 mg at 02/15/22 0735 ??? lactulose (Chronulac) (0.67 gram/mL) oral liquid 20 g 20 g Oral BID PRN eVto Hidalgo MD ??? alteplase (Cathflo) injection 1-4 [...] Requested Imaging: none 8. Disposition- floor Melissa oGnzales MD Acute Care Surgery Pager [phone] Melissa Gonzales MD - 02/15/2022 1:46 PM [...] MD 02/15/2022 Acute Care Surgery Team pager [phone] Associated attestation - Gela Novak MD - [...] in PACU. Report called to [employer] and revenue accounting manager. Ama Tucker RN - 02/15/2022 4:50 [...] EDT Hypertension/Nephrology Staff Inpatient Follow-up Alix Holland [id number] 1990 ID: 31 y.o. old male seen [...] MD 02/14/2022 Acute Care Surgery Team pager [phone] Jairo Kirkland MD - 02/13/2022 4:06 PM [...] Estimate Normal RBC Morphology Abnormal Hypochromia Slight Clear[place] Cells 1-5 /HPF Stippled RBCs Present >1/HPF [...] EDT Hypertension/Nephrology Staff Inpatient Follow-up Alix Holland [id number] 1990 ID: 31 y.o. old male seen [...] Estimate Normal RBC Morphology Abnormal Hypochromia Slight [place] Cells 1-5 /HPF Stippled RBCs Present >1/HPF Toxic Granulation Present A/P: 1. Renal: persistent anuric ALTHEA post rhabdo. Hyponatremia persists but chemistries otherwise stable. - no indication for BUYING INTERN today - 1.5L/d fluid restriction - avoid [...] MD 02/13/2022 Acute Care Surgery Team pager [phone] Vidhya Peñaloza MD - 02/12/2022 8:33 PM [...] mL) subcutaneous injection 5,000 Units 5,000 Units [id number] [place] Kaitlyn Rock MD 5,000 Units at [...] next week. Meghan Prabhakar, PT DPT Pager #[phone] 02/12/2022 Physical Therapy Rehabilitation Department Parrish Betancourt [...] MD 02/12/2022 Acute Care Surgery Team pager [phone] SURGICAL ATTENDING NOTE: Pt seen and examined [...] mL) subcutaneous injection 5,000 Units 5,000 Units [id number] [facility] Kaitlyn Rock MD 5,000 Units at 02/11/222118 [...] Kaitlyn Rock MD 2 tablet at 02/09/22 08 ??? folic acid (Folvite) tablet 1,000 mcg 1,000 mcg Oral Daily Kaitlyn Rock MD 1,000 mcg at 02/11/22813 ??? thiamine (Vitamin B1) tablet 100 mg 100 mg Oral Daily Kaitlyn Rock MD 100 mg at 02/11/22813 ??? acetaminophen (Tylenol) tablet 1,000 mg 1,000 mg Oral Q8H [facility] Kaitlyn Rock MD 1,000 mg at 02/11/222118 [...] 6120 [P.O.:4850; I.V.:1009; Other:45; IV Piggyback:216] Out: 95929 [Other:93970; Stool:200] I/O this shift: In: 600 [P.O.:300; [...] Montaño MD Acute Care Surgery Team Pager [phone] 02/11/22 Sg Parra RN - 02/11/2022 2:36 PM EDT OUTCOME EVALUATION NOTE: ?? OUTCOME SUMMARY: Pt alert and oriented x4. On room air, no SOB and dyspnea. 8/10 general pain, relief with CMM OPERATOR dilaudid and PRN oral oxycodone. Wound vac [...] MD 02/11/2022 Acute Care Surgery Team pager [phone] Tamika Burk, RN - 02/11/2022 11:41 AM EDT Pt to PACU via bed from OR; monitors applied, alarms set and audible. Woke up well from Anesthesia; comfortable initially, then c/o LLE killing me. Pt given CMM OPERATOR, which he used independently. Given additional IV [...] and left superior gluteal artery via R JOINTER MACHINE OPERATOR access. Interval hx: Pt continues NPO for [...] discuss plan with provider Kaylie Montaño MD #[id number]. Active Orders Diet Regular diet Frequency: Effective [...] 02/05/2022 TRIG 359 01/26/2022 CRP <3.0 04/26/2021 [id number] 535 02/03/2022 SFOLATE 3.9 (L) 02/03/2022 IRON [...] encounter: 104.3 kg (229 lb 15 oz). [place] Body Weight: 80.9kg- [place] Usual Body Weight: [...] Based on IBW 80.9kg Estimated needs: Calories: 3746-5222 (25-30kcal/kg) Protein: 200+ grams (2.5 g/kg) - [...] injury (Nelia, BUSTER J Parenteral Enteral Nutr. 2012 November; 36(3): 273-83) Nutrition to continue to follow up while inpatient KAYLAH JANG RD Pager #:[phone] Tanesha Patel RN - 02/11/2022 6:00 AM EDT OUTCOME EVALUATION NOTE: ?? OUTCOME SUMMARY: Pt AOx4. Had CMM OPERATOR Dilaudid, IV Dilaudid and PO oxycodone for pain. Dressings had been CDI. Wound vac in situ. NPO at IN for surgery today. Awaiting MRI schedule. For [...] pain 7-10/10 despite PRN oxy and dilaudid clinic administrator, team aware. Q shift N/V checks, pulses dopplerable. Provider notified pt would need to disconnect from wound vacs for MRI, communication placed, ok to disconnect. NPO at midnight for washout of wounds. PLAN MOVING FORWARD: NPO at midnight for washout IHD MWF Q8 sodium levels CMM OPERATOR for pain Free water restriction 1L Vidhya Peñaloza MD - 02/10/2022 1:47 PM EDT NEPHROLOGY PROGRESS NOTE PATIENT: Alix Holland : 1990 Interval History: Patient seen and examined at bedside. On HD when seen. Tolerated HD well. I/O last 3 completed shifts: In: 6279 [P.O.:2030; I.V.:3362; Blood:350; Other:30; IV Piggyback:507] Out: 72147 [Other:87707; Stool:1025; Blood:20] I/O this shift: In: 2473 [...] mL Mini-Bag Plus 3.375 g Intravenous Q12H Jeaentte Escamilla APRN 12.5 mL/hr at 02/10/22 1148 3.375 g at 02/10/22 1148 ??? heparin (porcine) (5,000 units/1 mL) subcutaneous injection 5,000 Units 5,000 Units [id number] [place] Jeanette Escamilla APRN 5,000 Units at [...] mg/mL) in sodium chloride 0.9% 50 mL CMM OPERATOR infusion Intravenous CMM OPERATOR Only Jeanette Escamilla APRN 1 mL/hr at [...] Q1 Min PRN Jeanette Escamilla APRN ??? CMM OPERATOR hutton Intravenous Continuous PRN Jeanette Escamilla APRN ??? HYDROmorphone (mg) CMM OPERATOR shift total and Settings verification Intravenous 2 Times Daily- CMM OPERATOR Shift Total Jeanette Escamilla APRN ??? dronabinoL [...] Abnormal Polychromasia Present >5/HPF Ovalocytes 1-5 /HPF Clearwater Cells 1-5 /HPF Stippled RBCs Present >1/HPF [...] Care Surgery Daily Progress Note ID: Alix Hloland is a 31 y.o. male with class I obesity, HTN, angioedema requiring intubation (04/2021, unclear trigger), GERD, gastritis/esophagitis, urachal cyst s/p I&D, and polysubstance use (EtOH, cocaine, heroin) for whom General Surgery is consulted in the setting of ongoing bleeding from a LLE fasciotomy. ?? He was initially admitted to MICU 01/23 at [facility] after he was found down following fentanyl [...] 02/10 0700 In: 4038 [P.O.:1250; I.V.:2350] Out: 67460 Physical Exam: General: no distress, awake in [...] pressors.Pain better controlled with PO medications and CMM OPERATOR. Nephrology is amenable to iHD in place of CVV[facility]. ID following regarding C. diff treatment. PLAN: Neuro:?Toxic metabolic encephalopathy, bilateral globus pallidum infarcts, hx polysubstance abusewith difficult to control pain - Pain control: acetaminophen, Dilaudid CMM OPERATOR, oxycodone PRN, Dilaudid breakthrough - Marinol 10mg [...] MD, PGY2 Acute Care Surgery Team pager [phone] Jose Hernandez MD - 02/10/2022 12:47 PM [...] mg/mL) in sodium chloride 0.9% 50 mL CMM OPERATOR infusion ??? diphenhydrAMINE (Benadryl) (50 mg/mL) injection 25 mg ??? prochlorperazine (Compazine) (5 mg/mL) injection 5 mg ??? ondansetron (pf) (Zofran) (2 mg/mL) injection 4 mg ??? naloxone (Narcan) (0.4 mg/mL) injection 0.2 mg ??? CMM OPERATOR hutton ??? HYDROmorphone (mg) CMM OPERATOR shift total and Settings verification ??? dronabinoL (Marinol) capsule 10 mg ??? senna-docusate (Pericolace) 8.6-50 mg per tablet 2 tablet ??? folic acid (Folvite) tablet 1,000 mcg ??? thiamine (Vitamin B1) tablet 100 mg ??? acetaminophen (Tylenol) tablet 1,000 mg ??? HYDROmorphone 50 mg (02/07/22 1384) OBJECTIVE: Temp: [36.4 ??C (97.5 ??F)-37.4 ??C (99.4 ??F)] Heart Rate: [99-120] Resp: [12-26] BP: (120-124)/(69-74) Intake/Output Summary (Last 24 hours) at 02/10/2022 1247 Last data filed at 02/10/2022 1148 Gross per 24 hour Intake 4838 ml Output 74314 ml Net -9966 ml Body mass index [...] any changes, questions, or concerns please page [phone]. Activity: NWB LUE, NWB LLE DVT prophylaxis: [...] EDT Hypertension/Nephrology Staff Inpatient Follow-up Alix Holland [id number] 1990 ID: 31 y.o. old male seen [...] the MICU 01/23 [place]p [place] arrest at [facility] in the setting ofbeing down for 12 [...] control pain - pain control: acetaminophen, D. CMM OPERATOR - PRN Dilaudid for breakthrough pain, start [...] debride ment.?? Social History: Patient lives in [place], [place] with his dad. Home Setup: [address] [facility], 2 level home, bedroom on 1st level, bathroom available on 1st level, has a tub shower downstairs. DME: none Baseline ADL/Mobility: Pt reports he was independent w/ ADL's and IADL's, had worked for a [employer] He enjoys hunting and fishing. He reports he likes country music ?? Precautions/Special Considerations: SOAP/WATER; At risk to fall, flexiseal, L UE and L LE NWB; L forearm wound vac; NPO, Bedrest; CMM OPERATOR; Femoral A-line S: My leg really hurts [...] to participate ?? Alert and oriented to: [facility], January,. When asked the day of the [...] See PT note Pain: 8/10 to LLE; CMM OPERATOR in place Education: Pt/family/caregiver education ongoing regarding: [...] Total Minutes, Occupational Therapy: 34 (10:34-11:08) Pager: [phone] DAI DUARTE OT Occupational Therapy Rehabilitation Department [...] IADLs, drives, used to work for a [employer] company but is not currently working. Enjoys [...] therapy and demonstrated the following: ?? Pain: 8/, L LE ? Vital Signs: HR 98bpm, [...] (PT): 2-4 times/wk Time IN / OUT: 0486-6826 Total Minutes, Physical Therapy: 31 (TEFx2). Meghan Prabhakar PT DPT 02/09/2022 Pager: [phone] Physical Therapy Inpatient Rehabilitation Department Carlo Jackson [...] and left superior gluteal artery via R JOINTER MACHINE OPERATOR access. Interval hx: Pt continues NPO for OR today. Team hopeful to advance diet after OR. Reason for intervention: Malnutrition evaluation and TPN Nutrition Recommendations: ADAT and encourage good intake. Pt with high protein needs- please encourage intake of eggs, nuts, meats, bulgarian yogurt, fish, and Ensure Enlive. Please order [...] 02/05/2022 TRIG 359 01/26/2022 CRP <3.0 04/26/2021 [id number] 535 02/03/2022 SFOLATE 3.9 (L) 02/03/2022 IRON [...] encounter: 111.7 kg (246 lb 4.1 oz). [place] Body Weight: 80.9kg- [place] Usual Body Weight: [...] Based on IBW 80.9kg Estimated needs: Calories: 7688-6882 (25-30kcal/kg) Protein: 200+ grams (2.5 g/kg) - [...] up while inpatient Carlo Jackson RD Pager #:[phone] Collette Dye MD - 02/09/2022 9:03 AM [...] was initially admitted to MICU 01/23 at [facility] after he was found down following fentanyl [...] diff screen (02/01): Positive Abscess/Wound Aspirate Culture [[id number]] (Abnormal) Collected: 02/08/221612 Lab Status: Preliminary result Specimen: Deep Wound from Thigh, Left Updated: 02/08/221717 Gram Stain --??Abnormal?? Many Neutrophils seen Moderate Gram Negative Rods seen ??Abnormal?? Abscess/Wound Aspirate Culture [[id number]] (Abnormal) Collected: 02/08/221612 Lab Status: Preliminary result [...] any questions regarding this consult, please page [phone] if you have any further questions. [X] Consult service to continue to follow [] Consult service to sign off Collette Dye MD, PGY2 Acute Care Surgery Team pager [phone] Bam Bahena - 02/09/2022 7:35 AM EDT [...] to the MICU 01/23??s/p [place] arrest at [facility] in the setting of being down for [...] Neurology - Pain control: ?? acetaminophen, D. CMM OPERATOR ?? PRN Dilaudid for breakthrough pain ?? [...] Plastic Surgery Inpatient Progress Note (Team Pager #[phone]) Date of surgery: N/A CC/Procedure(s): N/A Surgeon: [...] Reynoso MD Plastic Surgery Inpatient Team Pager #[phone] Jesús Mcgowan PA - 02/09/2022 6:06 AM [...] of Left superior gluteal artery via R JOINTER MACHINE OPERATOR access. Last Value 24 Hour Range Temperature 37.5 ??C (99.5 ??F) Temp: [36.2 ??C (97.2 ??F)-37.9 ??C (100.2 ??F)] Heart Rate (!) 115 Heart Rate: [85-138] Blood Pressure 142/75 BP: -- Respiratory Rate 26 Resp: [12-29] SpO2 100 % SpO2: [96 %-100 %] Physical Exam GEN No distress, A&O CARDS Acyanotic, Right JOINTER MACHINE OPERATOR without hematoma/induration, right DP 2+ LUNGS Non-labored [...] Abnormal Polychromasia Present >5/HPF Ovalocytes 1-5 /HPF Clear[place] Cells 1-5 /HPF Stippled RBCs Present >1/HPF [...] Value Ref Range T&S only valid at [facility] Hosp Assessment: 31 y.o. male with history [...] and left superior gluteal artery via R JOINTER MACHINE OPERATOR access. Last transfusion of 1 unit PRBC [...] updated and patient is medically appropriate. Pager: [phone] Amberly Hardy OT 02/08/2022 Occupational Therapy Rehabilitation [...] 17 g 17 g Oral BID Rogers Sloano, KATERYNA ??? heparin (porcine) (5,000 units/1 mL) subcutaneous injection 7,500 Units 7,500 Units UqgpmcnjbxlhA6V [place] Rogers Solano, BALL MILL OPERATOR ??? alteplase (Cathflo) injection 1-4 mg 1-4 mL INTRA-CATHETER Once in dialysis PRN Collette Rivas PA 2.4 mg at 02/07/22 0520 ??? heparin (porcine) (1,000 units/mL) injection 1,000-10,000 Units 1,000-10,000 Units [id number] PRN Angelina Reynoso MD ??? bicarbonate CRRT [...] 0.2 mg Intravenous Q2H PRN Rogers Solano, BALL MILL OPERATOR ??? HYDROmorphone (Dilaudid) (1 mg/mL) in sodium chloride 0.9% 50 mL CMM OPERATOR infusion Intravenous CMM OPERATOR Only Rogers Solano, KATERYNA 1 mL/hr at [...] Q1 Min PRN Danielle Ramirez MD ??? CMM OPERATOR hutton Intravenous Continuous PRN Danielle Ramirez MD ??? HYDROmorphone (mg) CMM OPERATOR shift total and Settings verification Intravenous 2 Times Daily- CMM OPERATOR Shift Total Danielle Ramirez MD ??? vancomycin [...] bolus injection (Anesthesia) Intravenous PRN Anthony Turner ORTHOPEDIC PHYSICAL THERAPIST 10 mg at 02/06/22 1420 ??? lactated ringers infusion Intravenous Continuous PRN Anthony Turner CRNA New Bag at 02/06/22 1239 ??? PHENYLephrine (Rustam-Synephrine) (80 mcg/mL) in sodium chloride 0.9% 250 mL infusion Intravenous Continuous PRN Anthony Turner CRNA 15 mL/hr at 02/06/22 1433 20 mcg/min at 02/06/22 1433 ??? HYDROmorphone (Dilaudid) (2 mg/mL) multi-dose injection solution Intravenous PRN Anthony Turner CRNA 1 mg at 02/06/22 1439 Recent Results [...] Abnormal Polychromasia Present >5/HPF Ovalocytes 1-5 /HPF Clear[place] Cells 1-5 /HPF Toxic Granulation Present BLOOD [...] 126 65 - 199 mg/dL Vidhya Peñaloza #[phone] Associated attestation - Cecilio Gee MD - [...] the MICU 01/23 [place]/p [place] arrest at [facility] in the setting ofbeing down for 12 [...] control pain - pain control: acetaminophen, D. CMM OPERATOR - PRN Dilaudid for breakthrough pain - [...] Specialist in Neurologic Physical Therapy Inpatient/outpatient Rehab [facility] Parrish Betancourt MD - 02/08/2022 8:39 [...] was initially admitted to MICU 01/23 at [facility] after he was found down following fentanyl [...] any questions regarding this consult, please page [phone] if you have any further questions. [X] Consult service to continue to follow [] Consult service to sign off Collette Dye MD, PGY2 Acute Care Surgery Team pager [phone] SURGICAL ATTENDING NOTE: Pt seen and examined [...] Vinod Prasad PA-C Interventional Radiology IR Provider #[phone] Shruti Bam - 02/08/2022 7:31 AM EDT [...] to the MICU 01/23??s/p [place] arrest at [facility] in the setting of being down for [...] HD line rewired after TPA failed. Increased CMM OPERATOR then went down on it. 2 units [...] difficult to control pain - Acetaminophen, D. CMM OPERATOR - PRN Dilaudid for breakthrough pain - [...] mg/mL) in sodium chloride 0.9% 50 mL CMM OPERATOR infusion ??? heparin (porcine) (1,000 units/mL) injection [...] (Narcan) (0.4 mg/mL) injection 0.2 mg ??? CMM OPERATOR hutton ??? HYDROmorphone (mg) CMM OPERATOR shift total and Settings verification ??? vancomycin [...] at this time. He is using his CMM OPERATOR as demonstrated. Natalya Amador RN - 02/07/2022 6:48 PM EDT OUTCOME EVALUATION NOTE: OUTCOME SUMMARY: Pt stated increased pain this am, and received Dilaudid 0.2 mg for BTP, and increase on CMM OPERATOR, statingpain 05/10 to the left hip. With the one IV dose of Dilaudid and increase pt stated better pain, andwas unable to verbalize a number, staring out into space or closing eyes during a conversation,. Pt's CMM OPERATOR was then decreased and during the decrease [...] mg/mL) in sodium chloride 0.9% 50 mL CMM OPERATOR infusion ??? heparin (porcine) (1,000 units/mL) injection [...] (Narcan) (0.4 mg/mL) injection 0.2 mg ??? CMM OPERATOR hutton ??? HYDROmorphone (mg) CMM OPERATOR shift total and Settings verification ??? vancomycin [...] was initially admitted to MICU 01/23 at [facility] after he was found down following fentanyl [...] any questions regarding this consult, please page [phone] if you have any further questions. [X] Consult service to continue to follow [] Consult service to sign off Kaitlyn Rock MD, PGY2 Acute Care Surgery Team pager [phone] Garret Jeter, - 02/07/2022 10:10 AM EDT [...] bowel tones EXT Minimal oozing around R JOINTER MACHINE OPERATOR puncture site dressing, no hematoma. Distal pulses [...] any questions or concerns. Garret Jeter DO [facility] Interventional Radiology Jayme Armstrong MD - 02/07/2022 [...] the MICU 01/23 s/p [place] arrest at [facility] in the setting ofbeing down for 12 [...] control pain - pain control: acetaminophen, D. CMM OPERATOR - PRN Dilaudid for breakthrough pain - [...] 10/10 through most of the night, dilaudid CMM OPERATOR continues with PRN pushes for break through [...] dressing change, manage bleeding L thigh fasciotomy [id number], medicated with Hydromorphone 1 mg by Jeanette [...] the MICU 01/23 s/p [place] arrest at [facility] in the setting ofbeing down for 12 [...] control pain - pain control: acetaminophen, D. CMM OPERATOR ?? CV: Hypotension in the setting of [...] of procedural time. 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 Jayme Armstrong MD Jeanette Escamilla, BALL MILL OPERATOR - 02/06/2022 10:40 AM EDT ICU Transfer [...] down-time, complaining of LUE pain. [facility]route [facility] via EMS had a Vtach arrest. On arrival to OSH he was noted to have potassium of 7.8. He received multiple doses of sodium bicarb, calcium gluconate, and insulin/D10 and his potassium improved to 5.4 prior to transport. On arrival to [facility] K was again elevated at 7.6 with [...] Found to be COVID-positive. After arrival to [facility] pt was able to be weaned to minimal oxygenation support and CT chest was clear apart from partial collapse of LLL and dependent atelectasis. COVID therapies such as decadron were held due to preserved oxygenation. He did remain intubated through 01/26, not because of hypoxia, but to facilitate return OR trips and during a time of hemodynamic instability. ?? ALTHEA requiring BUYING INTERN: Given his multisystem organ failure and significant [...] 01/30. He was transitioned to a hydromorphone CMM OPERATOR on 02/01. ?? C Difficile infection: Persistent [...] Neurology - Pain control: ?? acetaminophen, D. CMM OPERATOR ?? PRN Dilaudid for breakthrough pain ?? [...] of his gluteus. 1 square dressing of [place] was placed at this aspect. 3 square [...] at this time. Halle Holloway MD Dunia Han, DO - 02/06/2022 7:30 AM EDT Critical [...] and set appropriately. Frequent visual assessments Surveillance: [place] [facility] Monitor Patient-specific fall prevention interventions [...] mg/mL) in sodium chloride 0.9% 50 mL CMM OPERATOR infusion ??? HYDROmorphone (Dilaudid) (1 mg/mL) injection syringe 1 mg ??? sevelamer carbonate (Renvela) tablet 1,600 mg ??? diphenhydrAMINE (Benadryl) (50 mg/mL) injection 25 mg ??? prochlorperazine (Compazine) (5 mg/mL) injection 5 mg ??? ondansetron (pf) (Zofran) (2 mg/mL) injection 4 mg ??? naloxone (Narcan) (0.4 mg/mL) injection 0.2 mg ??? CMM OPERATOR hutton ??? HYDROmorphone (mg) CMM OPERATOR shift total and Settings verification ??? vancomycin [...] EDT NEPHROLOGY PROGRESS NOTE Reason for consult: ALTHEA/BUYING INTERN Baseline creatinine: ~0.7 (as of 04/2021) Interval [...] tissue necrosis. Dania Thomas MD Nephrology Pager: [phone] Summer Robertson RN - 02/05/2022 3:35 PM EDT Pt returned from OR Summre Robertson RN - 02/05/2022 2:17 PM EDT Pt to OR Lilibeth Medina PT - 02/05/2022 1:57 PM EDT Physical [...] or concerns. Lilibeth Medina, PT, DPT Pager: [phone] 02/05/22 Inpatient Rehabilitation Department Amberly Hardy OT [...] evaluation as able and when appropriate. Pager: [phone] Amberly Hardy OT 02/05/2022 Occupational Therapy Rehabilitation [...] bridge Communicated nutrition recs to Medicine pager #[phone] Visualized patient for overt cachectic appearance: no [...] d/t fluid status Charlotte Castañeda RD Pager: [phone] Dilcia Lopez MD - 02/05/2022 9:56 AM [...] the past 24 hour(s)) GC Gene Amp ([facility]/CGP/APD/[place]) Urine Specimen: Urine Result Value Ref Range GC Gene Amp Negative Negative GC Source Urine Chlamydia Gene Amp ([facility]/CGP/APD/[place]) Urine Specimen: Urine Result Value Ref Range [...] Value Ref Range T&S only valid at [facility] Hosp Prepare RBC Result Value Ref Range Dispensed? Yes Hemoglobin Result Value Ref Range Hemoglobin 7.0 (L) 13.7 - 16.5 g/dL Microbiology: Microbiology Results (Last 30 days) Procedure Component Value Units Date/Time GC Gene Amp ([facility]/CGP/APD/[facility]) Urine [[id number]] Collected: 02/04/221619 Lab Status: Final result Specimen: Urine Updated: 02/05/22641 GC Gene Amp Negative Comment: The only FDA approved specimen types for this assay are cervical, vaginal, urethral and urine. Non-FDA approved sources are eye, throat and rectal and have been internally validated. GC Source Urine Chlamydia Gene Amp ([facility]/P/APD/[facility]) Urine [[id number]] Collected: 02/04/221619 Lab Status: Final result Specimen: Urine Updated: 02/05/22641 Chlamydia Gene Amp Negative Comment: The only FDA approved specimen types for this assay are cervical, vaginal, urethral and urine. Non-FDA approved sources are eye, throat and rectal and have been internally validated. Chlamydia Source Urine C. Difficile Screen [[id number]] (Abnormal) Collected: 02/01/22 1355 Lab Status: Final [...] or approval by Infection Prevention. Blood culture [[id number]] Collected: 02/01/22 0635 Lab Status: Preliminary result Specimen: Blood Updated: 02/04/22 1502 Blood Culture No growth at 3 days. Blood culture [[id number]] Collected: 02/01/22 0625 Lab Status: Preliminary result Specimen: Blood Pediatric Updated: 02/04/22 1502 Blood Culture No growth at 3 days. Blood culture [[id number]] Collected: 01/28/22 0345 Lab Status: Final result Specimen: Blood Updated: 02/02/22 0701 Blood Culture No growth at 5 days. MRSA PCR [[id number]] Collected: 01/24/22 1310 Lab Status: Final result Specimen: Nasopharyngeal Swab Updated: 01/25/22 2224 MRSA Result Negative MRSA Interp -- Negative for methicillin-resistant Staphylococcus aureus (MRSA) This test was performed using the GeneWISHCLOUDSpert?? Dx System and the Xpert MRSA Assay. The MRSA target DNA was not detected. The sample processing control and probe check were valid. The performance of this test was determined by the [facility] Molecular Pathology Laboratory. It has been cleared by the U.S. Food and Drug Administration for clinical use. Comment: [VERIFIED DATE]01.25.22 Verified By:Alfonso Soto (Electronic Signature) MRSA PCR [[id number]] Collected: 01/23/22 1247 Lab Status: Final result Specimen: Nasopharyngeal Swab Updated: 01/25/22 1023 MRSA Result Negative MRSA Interp -- Negative for methicillin-resistant Staphylococcus aureus (MRSA) This test was performed using the GeneWISHCLOU[employer]pert?? Dx System and the Xpert MRSA Assay. The MRSA target DNA was not detected. The sample processing control and probe check were valid. The performance of this test was determined by the [facility] Molecular Pathology [facility]. It has been cleared by the U.S. Food and Drug Administration for clinical use. Comment: [VERIFIED DATE]01.25.22 Verified By:Nora Shay (Electronic Signature) Lower Respiratory Culture Tracheal Aspirate [[id number]] (Abnormal) (Susceptibility) Collected: 01/23/22 1150 Lab Status: [...] Sensitive [1] Gentamicin is not appropriate for [place]-therapy. [2] Oxacillin (methicillin) susceptibility is a surrogate for the oral and parenteral cephalosporins, beta-lactam combination agents (amoxicillin-clavulanate, ampicillin-sulbactam and piperacillin-tazobactam) and carbapenem agents. It is NOT a surrogate for penicillin, ampicillin or piperacillin susceptibility. Linear View Blood culture [[id number]] Collected: 01/23/22 0600 Lab Status: Final result Specimen: Blood Updated: 01/28/22 0701 Blood Culture No growth at 5 days. Blood culture [[id number]] Collected: 01/23/22 0126 Lab Status: Final result Specimen: Blood Updated: 01/28/22 0701 Blood Culture No growth at 5 days. COVID-19 PCR [[id number]] (Abnormal) Collected: 01/23/22 0044 Lab Status: Final [...] diagnosis of COVID-19 is performed using the Topple Track SARS-CoV-2 Assay as authorized by the FDA Emergency Use Authorization (EUA). This EUA assay is intended for In-vitro Diagnostic (IVD) use with respiratory specimens such as nasopharyngeal swabs collected from individuals during the acute phase of infection. This assay is performed based on the instructions for use provided by [employer] and additional guidance provided by CDC and FDA. Testing is performed in the [facility] within the Department of Pathology and Laboratory Medicine at [facility], certified under the Clinical Laboratory Improvement Amendments [...] fact sheets at the following FDA website: https://www.fda.gov/medical-devices/mapivedpina-ccsulcl-3382-cgfgl-30-oqxtmsara- ppe-lyozhsurqxnbmp-ztjyqgy-devices/bxhxc-vtygflifdfe-bshs SARS-Cov-2 RNA Source Trach Asp MRSA PCR [[id number]] Collected: 01/23/22 0044 Lab Status: Final result [...] of this test was determined by the [facility]. It has been cleared [...] who have questions please contact the health memory care program director that requested your imaging first. Head wo Contrast (Generic) (Exam End: 01/23/2022 3:58 AM) Impression Globi pallidi infarcts. Mild cerebral edema. Thank you for letting us participate in the care of this patient. If you are a health care provider and have any questions regarding this report, please contact the number below. For patients who have questions please contact the health memory care program director that requested your imaging first. Electronically signed by: Rex Addison MD, [facility] ([phone]), at 01/23/2022 4:27 AM XR Abdomen 1 [...] who have questions please contact the health memory care program director that requested your imaging first. Electronically signed by: Jacky Mello MD, [facility] ([phone]), at 01/23/2022 8:[address] Lower Extremity [...] who have questions please contact the health memory care program director that requested your imaging first. Electronically signed by: Melita Mills MD, [facility] ([phone]), at 01/24/2022 1:[address] Chest wo [...] who have questions please contact the health memory care program director that requested your imaging first. Electronically signed by: Rex Addison MD, [facility] ([phone]), at 01/23/2022 4:[address] Upper Extremity [...] who have questions please contact the health memory care program director that requested your imaging first. Electronically signed by: Rex Addison MD, [facility] ([phone]), at 01/23/2022 4:58 AM XR Forearm Left [...] who have questions please contact the health memory care program director that requested your imaging first. Electronically signed by: Rex Addison MD, [facility] ([phone]), at 01/23/2022 7:14 AM XR Chest One [...] who have questions please contact the health memory care program director that requested your imaging first. Femur 2 views Left (Generic) (Exam End: 01/23/2022 2:04 PM) Impression No significant osseous finding. Thank you for letting us participate in the care of this patient. If you are a health care provider and have any questions regarding this report, please contact the number below. For patients who have questions please contact the health memory care program director that requested your imaging first. Electronically signed by: Lisandro Pruett MD, [facility] ([phone]), at 01/23/2022 2:10 PM XR Tibia Fibula Left (Generic) (Exam End: 01/23/2022 2:04 PM) Impression No bony abnormality seen. Thank you for letting us participate in the care of this patient. If you are a health care provider and have any questions regarding this report, please contact the number below. For patients who have questions please contact the health memory care program director that requested your imaging first. Electronically signed by: Jacky Mello MD, [facility] ([phone]), at 01/23/2022 2:07 PM XR Chest One [...] who have questions please contact the health memory care program director that requested your imaging first. Electronically signed by: Lisandro Preutt MD, [facility] ([phone]), at 01/23/2022 5:01 PM MRI Brain wo [...] who have questions please contact the health memory care program director that requested your imaging first. Electronically signed by: Bernadine Edward [facility] ([phone]), at 01/24/2022 4:[address] Angiogram [place] (Exam End: 01/24/2022 11:32 PM) Impression Normal appearance of the large and medium size arteries of the head and neck Thank you for letting us participate in the care of this patient. If you are a health care provider and have any questions regarding this report, please contact the number below. For patients who have questions please contact the health memory care program director that requested your imaging first. Angiogram Carotids [...] who have questions please contact the health memory care program director that requested your imaging first. Chest Abdomen [...] who have questions please contact the health memory care program director that requested your imaging first. Assessment: Alix [...] to this Complex pain needs - adjusted CMM OPERATOR yesterday with improvement Leukocytosis now down-trending with [...] and restarted precautions ?? # ALTHEA requiring BUYING INTERN; now on iHD # Hyponatremia (volume overloaded, not eating) # Hyperkalemia - Nephrology following - 1.5L fluid restriction in place ?? # Pain Control, c/b Chronic Opiate Abuse - adjusted CMM OPERATOR - consider subboxone/BIT once more stable ad [...] mg/mL) in sodium chloride 0.9% 50 mL CMM OPERATOR infusion ??? HYDROmorphone (Dilaudid) (1 mg/mL) injection syringe 1 mg ??? sevelamer carbonate (Renvela) tablet 1,600 mg ??? diphenhydrAMINE (Benadryl) (50 mg/mL) injection 25 mg ??? prochlorperazine (Compazine) (5 mg/mL) injection 5 mg ??? ondansetron (pf) (Zofran) (2 mg/mL) injection 4 mg ??? naloxone (Narcan) (0.4 mg/mL) injection 0.2 mg ??? CMM OPERATOR hutton ??? HYDROmorphone (mg) CMM OPERATOR shift total and Settings verification ??? vancomycin [...] mg/mL) in sodium chloride 0.9% 50 mL CMM OPERATOR infusion ??? HYDROmorphone (Dilaudid) (1 mg/mL) injection syringe 1 mg ??? sevelamer carbonate (Renvela) tablet 1,600 mg ??? diphenhydrAMINE (Benadryl) (50 mg/mL) injection 25 mg ??? prochlorperazine (Compazine) (5 mg/mL) injection 5 mg ??? ondansetron (pf) (Zofran) (2 mg/mL) injection 4 mg ??? naloxone (Narcan) (0.4 mg/mL) injection 0.2 mg ??? CMM OPERATOR hutton ??? HYDROmorphone (mg) CMM OPERATOR shift total and Settings verification ??? vancomycin [...] in the left wrist, less somnolent Changed CMM OPERATOR 4 hour limit and increased dose from [...] Component Value Units Date/Time C. Difficile Screen [[id number]] (Abnormal) Collected: 02/01/22 1355 Lab Status: Final [...] or approval by Infection Prevention. Blood culture [[id number]] Collected: 02/01/22 0635 Lab Status: Preliminary result Specimen: Blood Updated: 02/04/22 1502 Blood Culture No growth at 3 days. Blood culture [[id number]] Collected: 02/01/22 0625 Lab Status: Preliminary result Specimen: Blood Pediatric Updated: 02/04/22 1502 Blood Culture No growth at 3 days. Blood culture [[id number]] Collected: 01/28/22 0345 Lab Status: Final result Specimen: Blood Updated: 02/02/22 0701 Blood Culture No growth at 5 days. MRSA PCR [[id number]] Collected: 01/24/22 1310 Lab Status: Final result Specimen: Nasopharyngeal Swab Updated: 01/25/22 2224 MRSA Result Negative MRSA Interp -- Negative for methicillin-resistant Staphylococcus aureus (MRSA) This test was performed using the [employer] Dx System and the Xpert MRSA Assay. The MRSA target DNA was not detected. The sample processing control and probe check were valid. The performance of this test was determined by the [facility]. It has been cleared by the U.S. Food and Drug Administration for clinical use. Comment: [VERIFIED DATE]01.25.22 Verified By:Alfonso Soto (Electronic Signature) MRSA PCR [[id number]] Collected: 01/23/22 1247 Lab Status: Final result Specimen: Nasopharyngeal Swab Updated: 01/25/22 1023 MRSA Result Negative MRSA Interp -- Negative for methicillin-resistant Staphylococcus aureus (MRSA) This test was performed using the [employer] Dx System and the Xpert MRSA Assay. The MRSA target DNA was not detected. The sample processing control and probe check were valid. The performance of this test was determined by the [facility]. It has been cleared by the U.S. Food and Drug Administration for clinical use. Comment: [VERIFIED DATE]01.25.22 Verified By:Nora Shay (Electronic Signature) Lower Respiratory Culture Tracheal Aspirate [[id number]] (Abnormal) (Susceptibility) Collected: 01/23/22 1150 Lab Status: [...] Sensitive [1] Gentamicin is not appropriate for [place]-therapy. [2] Oxacillin (methicillin) susceptibility is a surrogate for the oral and parenteral cephalosporins, beta-lactam combination agents (amoxicillin-clavulanate, ampicillin-sulbactam and piperacillin-tazobactam) and carbapenem agents. It is NOT a surrogate for penicillin, ampicillin or piperacillin susceptibility. Linear View Blood culture [[id number]] Collected: 01/23/22 0600 Lab Status: Final result Specimen: Blood Updated: 01/28/22 0701 Blood Culture No growth at 5 days. Blood culture [[id number]] Collected: 01/23/22 0126 Lab Status: Final result Specimen: Blood Updated: 01/28/22 0701 Blood Culture No growth at 5 days. COVID-19 PCR [[id number]] (Abnormal) Collected: 01/23/22 0044 Lab Status: Final [...] diagnosis of COVID-19 is performed using the Topple Track SARS-CoV-2 Assay as authorized by the FDA Emergency Use Authorization (EUA). This EUA assay is intended for In-vitro Diagnostic (IVD) use with respiratory specimens such as nasopharyngeal swabs collected from individuals during the acute phase of infection. This assay is performed based on the instructions for use provided by [employer] and additional guidance provided by CDC and FDA. Testing is performed in the [facility] within the Department of Pathology and Laboratory Medicine at [facility], certified under the Clinical Laboratory Improvement Amendments [...] fact sheets at the following FDA website: https://www.fda.gov/medical-devices/mwlmesjqxip-qufxmwc-7697-sajvg-85-zhurvudgz- tgv-tmqdtsfmozdkni-rsbeeyq-devices/tczby-sztswtwtvqz-faok SARS-Cov-2 RNA Source Trach Asp MRSA PCR [[id number]] Collected: 01/23/22 0044 Lab Status: Final result [...] of this test was determined by the [facility]. It has been cleared [...] who have questions please contact the health memory care program director that requested your imaging first. Head wo Contrast (Generic) (Exam End: 01/23/2022 3:58 AM) Impression Globi pallidi infarcts. Mild cerebral edema. Thank you for letting us participate in the care of this patient. If you are a health care provider and have any questions regarding this report, please contact the number below. For patients who have questions please contact the health memory care program director that requested your imaging first. Electronically signed by: Rex Addison MD, [facility] ([phone]), at 01/23/2022 4:27 AM XR Abdomen 1 [...] who have questions please contact the health memory care program director that requested your imaging first. Electronically signed by: Jacky Mello MD, [facility] ([phone]), at 01/23/2022 8:[address] Lower Extremity [...] who have questions please contact the health memory care program director that requested your imaging first. Electronically signed by: Melita Mills MD, [facility] ([phone]), at 01/24/2022 1:[address] Chest wo [...] who have questions please contact the health memory care program director that requested your imaging first. Electronically signed by: Rex Addison MD, [facility] ([phone]), at 01/23/2022 4:[address] Upper Extremity [...] who have questions please contact the health memory care program director that requested your imaging first. Electronically signed by: Rex Addison MD, [facility] ([phone]), at 01/23/2022 4:58 AM XR Forearm Left [...] who have questions please contact the health memory care program director that requested your imaging first. Electronically signed by: Rex Addison MD, [facility] ([phone]), at 01/23/2022 7:14 AM XR Chest One [...] who have questions please contact the health memory care program director that requested your imaging first. Femur 2 views Left (Generic) (Exam End: 01/23/2022 2:04 PM) Impression No significant osseous finding. Thank you for letting us participate in the care of this patient. If you are a health care provider and have any questions regarding this report, please contact the number below. For patients who have questions please contact the health memory care program director that requested your imaging first. Electronically signed by: Lisandro Pruett MD, [facility] ([phone]), at 01/23/2022 2:10 PM XR Tibia Fibula Left (Generic) (Exam End: 01/23/2022 2:04 PM) Impression No bony abnormality seen. Thank you for letting us participate in the care of this patient. If you are a health care provider and have any questions regarding this report, please contact the number below. For patients who have questions please contact the health memory care program director that requested your imaging first. Electronically signed by: Jacky Mello MD, [facility] ([phone]), at 01/23/2022 2:07 PM XR Chest One [...] who have questions please contact the health memory care program director that requested your imaging first. Electronically signed by: Lisandro Pruett MD, [facility] ([phone]), at 01/23/2022 5:01 PM MRI Brain wo [...] who have questions please contact the health memory care program director that requested your imaging first. Electronically signed by: Bernadine Edward [facility] ([phone]), at 01/24/2022 4:[address] Angiogram [place] (Exam End: 01/24/2022 11:32 PM) Impression Normal appearance of the large and medium size arteries of the head and neck Thank you for letting us participate in the care of this patient. If you are a health care provider and have any questions regarding this report, please contact the number below. For patients who have questions please contact the health memory care program director that requested your imaging first. Angiogram Carotids [...] who have questions please contact the health memory care program director that requested your imaging first. Chest Abdomen [...] who have questions please contact the health memory care program director that requested your imaging first. Assessment: Alix [...] to this Complex pain needs - adjusted CMM OPERATOR Leukocytosis now down-trending with treatment of c dif. Also requiring prophylaxis abx with cefazolin until fasciotomy closures. Duplexes were ordered for concern for DVT however these were not able to be completed due to Vac continue CMM OPERATOR Plan: #Rhabdomyolysis??d/t LUE??+ LLE??Compartment Syndrome??with hyperkalemic cardiac [...] and restarted precautions ?? # ALTHEA requiring BUYING INTERN; now on iHD # Hyponatremia (volume overloaded, not eating) # Hyperkalemia - Nephrology following - 1.5L fluid restriction in place ?? # Pain Control, c/b Chronic Opiate Abuse - adjusted CMM OPERATOR -on patient controlled anesthesia ? Physical Therapy [...] EDT NEPHROLOGY PROGRESS NOTE Reason for consult: ALTHEA/BUYING INTERN Baseline creatinine: ~0.7 (as of 04/2021) Interval [...] extent possible. Dania Thomas MD Nephrology Pager: [phone] Phoenix Dhillon RN - 02/04/2022 6:48 AM EDT OUTCOME EVALUATION NOTE: OUTCOME SUMMARY: Patient remains alert and oriented. He has been maxing out his CMM OPERATOR pumps limit and increased number of attempts [...] 250cc SS output over last 24 hours. CMM OPERATOR for pain control. Phos 7.5, Na 120, Cr 5.55, K 5.7 ALTHEA requiring BUYING INTERN, now iHD this AM Patient denies chest [...] mg/mL) in sodium chloride 0.9% 50 mL CMM OPERATOR infusion ??? diphenhydrAMINE (Benadryl) (50 mg/mL) injection 25 mg ??? prochlorperazine (Compazine) (5 mg/mL) injection 5 mg ??? ondansetron (pf) (Zofran) (2 mg/mL) injection 4 mg ??? naloxone (Narcan) (0.4 mg/mL) injection 0.2 mg ??? CMM OPERATOR hutton ??? HYDROmorphone (mg) CMM OPERATOR shift total and Settings verification ??? vancomycin [...] Component Value Units Date/Time C. Difficile Screen [[id number]] (Abnormal) Collected: 02/01/22 1355 Lab Status: Final [...] or approval by Infection Prevention. Blood culture [[id number]] Collected: 02/01/22 0635 Lab Status: Preliminary result Specimen: Blood Updated: 02/03/22 1501 Blood Culture No growth at 2 days. Blood culture [[id number]] Collected: 02/01/22 0625 Lab Status: Preliminary result Specimen: Blood Pediatric Updated: 02/03/22 1501 Blood Culture No growth at 2 days. Blood culture [[id number]] Collected: 01/28/22 0345 Lab Status: Final result Specimen: Blood Updated: 02/02/22 0701 Blood Culture No growth at 5 days. MRSA PCR [[id number]] Collected: 01/24/22 1310 Lab Status: Final result Specimen: Nasopharyngeal Swab Updated: 01/25/224 MRSA Result Negative MRSA Interp -- Negative for methicillin-resistant Staphylococcus aureus (MRSA) This test was performed using the [employer]?? Dx System and the Xpert MRSA Assay. The MRSA target DNA was not detected. The sample processing control and probe check were valid. The performance of this test was determined by the [facility]. It has been cleared by the U.S. Food and Drug Administration for clinical use. Comment: [VERIFIED DATE]01.25.22 Verified By:Alfonso Soto (Electronic Signature) MRSA PCR [[id number]] Collected: 01/23/22 1247 Lab Status: Final result [...] of this test was determined by the [facility]. It has been cleared by the U.S. Food and Drug Administration for clinical use. Comment: [VERIFIED DATE]01.25.22 Verified By:Nora Shay (Electronic Signature) Lower Respiratory Culture Tracheal Aspirate [[id number]] (Abnormal) (Susceptibility) Collected: 01/23/22 1150 Lab Status: [...] Sensitive [1] Gentamicin is not appropriate for [place]-therapy. [2] Oxacillin (methicillin) susceptibility is a surrogate for the oral and parenteral cephalosporins, beta-lactam combination agents (amoxicillin-clavulanate, ampicillin-sulbactam and piperacillin-tazobactam) and carbapenem agents. It is NOT a surrogate for penicillin, ampicillin or piperacillin susceptibility. Linear View Blood culture [[id number]] Collected: 01/23/22 0600 Lab Status: Final result Specimen: Blood Updated: 01/28/22 0701 Blood Culture No growth at 5 days. Blood culture [[id number]] Collected: 01/23/22 0126 Lab Status: Final result Specimen: Blood Updated: 01/28/22 0701 Blood Culture No growth at 5 days. COVID-19 PCR [[id number]] (Abnormal) Collected: 01/23/22 0044 Lab Status: Final [...] diagnosis of COVID-19 is performed using the [employer] m SARS-CoV-2 Assay as authorized by the FDA Emergency Use Authorization (EUA). This EUA assay is intended for In-vitro Diagnostic (IVD) use with respiratory specimens such as nasopharyngeal swabs collected from individuals during the acute phase of infection. This assay is performed based on the instructions for use provided by [employer] and additional guidance provided by CDC and FDA. Testing is performed in the [facility] within the Department of Pathology and Laboratory Medicine at [facility], certified under the Clinical Laboratory Improvement Amendments [...] fact sheets at the following FDA website: https://www.fda.gov/medical-devices/shwbvuspqks-obgvqdw-1831-zbizi-46-thpgkrtzk- cig-doyvomdlujkvsf-wufutao-devices/awupk-fybctxvjmcr-yrhi SARS-Cov-2 RNA Source Trach Asp MRSA PCR [[id number]] Collected: 01/23/22 0044 Lab Status: Final result [...] of this test was determined by the [facility]. It has been cleared [...] who have questions please contact the health memory care program director that requested your imaging first. Head wo Contrast (Generic) (Exam End: 01/23/2022 3:58 AM) Impression Globi pallidi infarcts. Mild cerebral edema. Thank you for letting us participate in the care of this patient. If you are a health care provider and have any questions regarding this report, please contact the number below. For patients who have questions please contact the health memory care program director that requested your imaging first. Electronically signed by: Rex Addison MD, [facility] ([phone]), at 01/23/2022 4:27 AM XR Abdomen 1 [...] who have questions please contact the health memory care program director that requested your imaging first. Electronically signed by: Jacky Mello MD, [facility] ([phone]), at 01/23/2022 8:[address] Lower Extremity [...] who have questions please contact the health memory care program director that requested your imaging first. Electronically signed by: Melita Mills MD, [facility] ([phone]), at 01/24/2022 1:[address] Chest wo [...] who have questions please contact the health memory care program director that requested your imaging first. Electronically signed by: Rex Addison MD, [facility] ([phone]), at 01/23/2022 4:[address] Upper Extremity [...] who have questions please contact the health memory care program director that requested your imaging first. Forearm Left [...] who have questions please contact the health memory care program director that requested your imaging first. Chest One [...] who have questions please contact the health memory care program director that requested your imaging first. Electronically signed by: Rex Addison MD, [facility] ([phone]), at 01/23/2022 6:56 AM XR Femur 2 views Left (Generic) (Exam End: 01/23/2022 2:04 PM) Impression No significant osseous finding. Thank you for letting us participate in the care of this patient. If you are a health care provider and have any questions regarding this report, please contact the number below. For patients who have questions please contact the health memory care program director that requested your imaging first. Electronically signed by: Lisandro Pruett MD, [facility] ([phone]), at 01/23/2022 2:10 PM XR Tibia Fibula Left (Generic) (Exam End: 01/23/2022 2:04 PM) Impression No bony abnormality seen. Thank you for letting us participate in the care of this patient. If you are a health care provider and have any questions regarding this report, please contact the number below. For patients who have questions please contact the health memory care program director that requested your imaging first. Electronically signed by: Jacky Mello MD, [facility] ([phone]), at 01/23/2022 2:07 PM XR Chest One [...] who have questions please contact the health memory care program director that requested your imaging first. Electronically signed by: Lisandro Pruett MD, [facility] ([phone]), at 01/23/2022 5:01 PM MRI Brain wo [...] who have questions please contact the health memory care program director that requested your imaging first. Electronically signed by: Bernadine Edward [facility] ([phone]), at 01/24/2022 4:[address] Angiogram [place] (Exam End: 01/24/2022 11:32 PM) Impression Normal appearance of the large and medium size arteries of the head and neck Thank you for letting us participate in the care of this patient. If you are a health care provider and have any questions regarding this report, please contact the number below. For patients who have questions please contact the health memory care program director that requested your imaging first. Angiogram Carotids [...] who have questions please contact the health memory care program director that requested your imaging first. Chest Abdomen [...] who have questions please contact the health memory care program director that requested your imaging first. Electronically signed by: Melita Mills MD, [facility] ([phone]), at 01/30/2022 3:20 PM Assessment: Alix Holland??is [...] to be completed due to Vac continue CMM OPERATOR Plan: #Rhabdomyolysis??d/t LUE??+ LLE??Compartment Syndrome??with hyperkalemic cardiac [...] longer requires precautions ?? # ALTHEA requiring BUYING INTERN; now on iHD # Hyponatremia (volume overloaded, [...] EDT NEPHROLOGY PROGRESS NOTE Reason for consult: ALTHEA/BUYING INTERN Baseline creatinine: ~0.7 (as of 04/2021) Interval [...] with meals. Dania Thomas MD Nephrology Pager: [phone] Amberly Hardy OT - 02/03/2022 1:09 PM EDT Occupational Therapy Note Document Type: contact Total Minutes, Occupational Therapy: 0 Reason: Patient with low Hgb, 5.6. Defer OT. Will follow up as able and when appropriate. Pager: [phone] Amberly Hardy OT 02/03/2022 Occupational Therapy Rehabilitation [...] Communicated nutrition recs to provider Medicine pager #[phone]. Active Orders Diet NPO diet (Give Meds) [...] 01/28/2022 TRIG 359 01/26/2022 CRP <3.0 04/26/2021 [id number] 535 02/03/2022 SFOLATE 3.9 (L) 02/03/2022 IRON [...] encounter: 116.9 kg (257 lb 11.5 oz). [place] Body Weight: 81 kg Usual Body Weight: [...] sedation and extubated. Pt now on shift BUYING INTERN. TF frequently held for OR, have not advanced past trickle TF. TF d/c today, no access at this time. 01/25: Patient intubated and sedated. Pt to OR today for wound vacs. Estimated needs: Calories: 1674-5378 (20-25 kcal/kg IBW) for the first 7-10 [...] inpatient Thank you, Charlotte Castañeda RD Pager #:[phone] Candida Teran RN - 02/03/2022 11:39 AM EDT Patient Name: Alix Holland Automobile Body Worker: Dania Thomas Automobile Body Worker Requested Clinic: [facility] [address] [place] [address] PHONE NUMBER Contact Phone/ First date of [...] after transfusing 1 unit for Hgb 6.4 74, likely ABLA CMM OPERATOR for pain control. ALTHEA requiring BUYING INTERN, now iHD Patient denies chest pain, shortness [...] mg/mL) in sodium chloride 0.9% 50 mL CMM OPERATOR infusion ??? diphenhydrAMINE (Benadryl) (50 mg/mL) injection 25 mg ??? prochlorperazine (Compazine) (5 mg/mL) injection 5 mg ??? ondansetron (pf) (Zofran) (2 mg/mL) injection 4 mg ??? naloxone (Narcan) (0.4 mg/mL) injection 0.2 mg ??? CMM OPERATOR hutton ??? HYDROmorphone (mg) CMM OPERATOR shift total and Settings verification ??? vancomycin [...] lateral leg wounds; s/p wound vac application Roaln volar forearm wound (1 white and 2 [...] mg/mL) in sodium chloride 0.9% 50 mL CMM OPERATOR infusion ??? diphenhydrAMINE (Benadryl) (50 mg/mL) injection 25 mg ??? prochlorperazine (Compazine) (5 mg/mL) injection 5 mg ??? ondansetron (pf) (Zofran) (2 mg/mL) injection 4 mg ??? naloxone (Narcan) (0.4 mg/mL) injection 0.2 mg ??? CMM OPERATOR hutton ??? HYDROmorphone (mg) CMM OPERATOR shift total and Settings verification ??? fentaNYL [...] EDT NEPHROLOGY PROGRESS NOTE Reason for consult: ALTHEA/BUYING INTERN Baseline creatinine: ~0.7 (as of 04/2021) Interval [...] with meals. Dania Thomas MD Nephrology Pager: [phone] Luzmaria Saavedra RN - 02/02/2022 10:24 AM EDT C. difficile Infection (CDI) Consult Note Reason for Consult: Patient tested positive for C. difficile. Pertinent labs: PCR positive on 02/01/2022 Section of Infectious Disease Treatment Recommendations: For all inpatient cases of C. difficile [facility] Section of Infectious Disease recommends 125 mg of oral vancomycin QID for at least 14 days (10days beyond symptom resolution), even in cases of iqqb-cq-ahesxxcd disease. For cases of severe C. difficile infection, please call an Infectious Disease consult and consider adding intravenous metronidazole in addition to oral vancomycin. If the patient is on broad- spectrum antibiotics for another indication, consider continuing oral vancomycin for 7 days after the other antibiotics are stopped. For questions regarding treatment please contact the Infectious Disease fellow health information technician at pager [phone]. Infection Prevention Recommendations: ? ? Isolation Recommendations- [...] stay is anticipated, consult Infection Prevention (Pager [phone]) to discuss the process for discontinuing S&W [...] a previously positive test. Applicable policies, guidelines: (04020) C. difficile Testing Policy (v.3) Soap & Water Contact Precautions and C. difficile Procedure Standard and Expanded Precautions Policy Precautions for Specific Diseases and Conditions - Job Aid For questions regarding treatment, please contact the Infectious Disease fellow health information technician at pager [phone]. For all other questions regarding C. difficile, please contact Infection Prevention at [phone] or pager [phone]. Thank you. Evangelina Flynn MD - 02/02/2022 10:23 AM EDT MICU STAFF PROGRESS NOTE Critical Care Medicine Author: Evangelina Flynn MD Patient seen and examined on critical care rounds and discussed with house staff. Interval Events: Diagnosed with C diff, started on po vanco Anemia slightly worse yesterday, PRBC tx, suspected from oozing HD session ongoing this morning Pain better controlled on CMM OPERATOR Per dad slept well last night, more [...] Ventilator: NA on RA Current Drips: Dilaudid CMM OPERATOR Labs/studies reviewed, notable for: WBC 33, downtrending [...] with leukocytosis now on treatment, pneumonia, and [id number] infection (known prior to admission.) Fortunately he is cognitively intact. Active management needs include ongoing pain control which is currently better on dilaudid CMM OPERATOR, need for long-term management of substance use [...] DVTs ordered yesterday and pending NEURO: dilaudid CMM OPERATOR for acute pain currently; long-term suboxone may [...] overnight. WBC 30.5 from 30.4 (43.9 early /4) Resting comfortably in MICU. Mental status improved, patient conversant. Hgb 7.0 after transfusing 1 unit for Hgb 6.4 yesterday, likely ABLA Started CMM OPERATOR for pain control. Patient denies chest pain, [...] mg/mL) in sodium chloride 0.9% 50 mL CMM OPERATOR infusion ??? diphenhydrAMINE (Benadryl) (50 mg/mL) injection 25 mg ??? prochlorperazine (Compazine) (5 mg/mL) injection 5 mg ??? ondansetron (pf) (Zofran) (2 mg/mL) injection 4 mg ??? naloxone (Narcan) (0.4 mg/mL) injection 0.2 mg ??? CMM OPERATOR hutton ??? HYDROmorphone (mg) CMM OPERATOR shift total and Settings verification ??? fentaNYL [...] (1,000 units/mL) injection 1,000-10,000 Units 1,000-10,000 Units MtovvedvbzvutK4Y PRN Dimas Hernandez MD 2,400 Units at [...] mL) subcutaneous injection 5,000 Units 5,000 Units HxamnqfqhlkcZ0G Dimas Santos MD 5,000 Units at 02/01/22 [...] Sanz MD - 02/01/2022 9:11 AM EDT [facility] MICU STAFF PROGRESS NOTE SECTION OF PULMONARY [...] Section of Pulmonary & Critical Care Pager: [phone] Armando, Doc Martinez MD - 02/01/2022 6:45 [...] Dilia Ferrara RN - 01/31/2022 8:35 PM EDTSumjosh: TELEMETRY STRIP Images from the original note [...] (1,000 units/mL) injection 1,000-10,000 Units 1,000-10,000 Units VqnswrcebvtbiO3Z PRN Dimas Hernandez MD ??? bicarbonate CRRT [...] tablet 1,000 mg 1,000 mg Oral Q8H [facility] Dimas Hernandez MD 1,000 mg at 01/31/22 [...] injection 40 mg 40 mg Intravenous Daily iDmas Hernandez MD 40 mg at 01/31/22 0816 [...] mL) subcutaneous injection 5,000 Units 5,000 Units VqjzjluooegzH3E Dimas Santos MD 5,000 Units at 01/31/22 0535 Facility-Administered Medications Ordered in Other Encounters Medication Dose Route Frequency Provider Last Rate Last Admin ??? fentaNYL (pf) (50 mcg/mL) multi-dose injection Intravenous PRN Len Herrera MD 50 mcg at 01/31/22 1044 ??? propofoL (Diprivan) 10 mg/mL bolus injection (Anesthesia) Intravenous PRN Len Herrera MD 200 mg at 01/31/22 1041 ??? PHENYLephrine in NS (PF) (RUSTAM-SYNEPHRINE) 0.8 mg/10 mL (80 mcg/mL) multi- dose injection Syrg Intravenous PRN Len Herrera MD 80 mcg at 01/31/22 1041 ??? propofoL (Diprivan) (10 mg/mL) infusion Intravenous Continuous PRN Len eHrrera MD 34.35 mL/hr at 01/31/22 1057 50 [...] We will plan for further shift therapy BUYING INTERN overnight. Anticipate trial of intermittent dialysis TuesdayFebruary 02 assuming intake and vital signs remain acceptable. Beck Sanz MD - 01/31/2022 8:51 AM EDT [facility] MICU STAFF PROGRESS NOTE SECTION OF PULMONARY [...] Section of Pulmonary & Critical Care Pager: [phone] Dimas Hernandez MD - 01/31/2022 6:25 AM [...] phos in 0.9% sodium chloride (CRRT) Stopped (07/02/22 0815) ??? calcium gluconate 10 mL/hr (01/31/22311) [...] seen and examined. - Patient transitioned to [facility]. - Chemistries are stable for now. - [...] (1,000 units/mL) injection 1,000-10,000 Units 1,000-10,000 Units AudxdazoxhoclY6S PRN Vidhya Peñaloza MD ??? bicarbonate CRRT [...] mg 100 mg Oral Daily Agnieszka López BALL MILL OPERATOR 100 mg at ??? ampicillin-sulbactam (Unasyn) 1.5 g vial attach to sodium chloride 0.9% 50 mL Mini-Bag Plus 1.5 g Intravenous Q8H Agnieszka López APRN Stopped at 01/30/22928 ??? acetaminophen (Tylenol) tablet 1,000 mg 1,000 mg Oral Q8H [place] Cristina Hillman, BALL MILL OPERATOR 1,000 mg at 01/30/22 0611 ??? polyethylene glycoL (Miralax) packet 17 g 17 g Oral Daily Cristina Hillman, BALL MILL OPERATOR 17 g at 01/29/2257 ??? lidocaine (Lidoderm) 5% patch 3 patch 3 patch Transdermal Q24H Sun Hayden PA 3 patch at 01/29/222211 And ??? lidocaine (Lidoderm) topical patch REMOVAL 1 patch Transdermal Q24H Sun Hayden PA ??? pantoprazole (Protonix) injection 40 mg 40 mg Intravenous Daily Cristina Hillman B, BALL MILL OPERATOR 40 mg at01/30/22916 ??? docusate sodium (Colace) (10 mg/mL) oral liquid 100 mg 100 mg Oral BID Cristina Hillman B, BALL MILL OPERATOR 100 mg at 01/29/222130 And ??? sennosides (Senokot) (1.76 mg/mL) oral liquid 17.6 mg 17.6 mg Oral BID Cristina Hillman B, BALL MILL OPERATOR 17.6 mg at 01/29/222130 ??? naloxone (Narcan) [...] 400 Units/hr Intravenous Continuous Cristina Hillman B BALL MILL OPERATOR 8 mL/hr at 01/29/222130 400 Units/hr at 01/29/222130 ??? glucose (Glutose) 40% oral geL 15-30 g of glucose Buccal Q30 Min PRN Rafy Gemma B BALL MILL OPERATOR Or ??? dextrose 10% infusion 250 mL Intravenous Q30 Min PRN Rafy Gemma B, BALL MILL OPERATOR Stopped at Or ??? glucagon (Glucagen) (1 mg/mL) injection solution 1 mg 1 mg Intramuscular Q30 Min PRN Rafy Gemashley B BALL MILL OPERATOR ??? heparin (porcine) (5,000 units/1 mL) subcutaneous injection 5,000 Units 5,000 Units EdqjotzvbylwC6U [facility] Rafy, Gemma B, BALL MILL OPERATOR 5,000 Units at 01/30/22 0611 Recent Results [...] QTC Calculated (Bezet) 418 ms Calculated P Dexter 13 degrees Calculated R Dexter 31 degrees Calculated T Dexter -8 degrees INTERPRETATION Sinus tachycardia Nonspecific T [...] 9 5 - 15 mmol/L Vidhya Peñaloza #[phone] Associated attestation - Jareth Nino MD - 01/30/2022 4:29 PM EDT I discussed patient with the fellow and observed from the doorway in the setting of COVID-19 isolation. 31-year-old male with an uric ALTHEA in the setting of rhabdomyolysis. We will trial prolonged intermittent CRRT over the weekend. [place] for success of this will be tapering fluid intake target 2 to 3 L. If he is able to tolerate this and we are able to manage ongoing metabolic derangements could consider transition to intermittent dialysis by next week should patient remain anuric Beck Sanz MD - 01/30/2022 8:49 AM EDT [facility] MICU STAFF PROGRESS NOTE SECTION OF PULMONARY [...] Section of Pulmonary & Critical Care Pager: [phone] Armando, Doc Martinez MD - 01/30/2022 6:48 [...] NPO after midnight. Activity: NWB LIZE, NWB SHAMAR DVT prophylaxis: Per primary Closure: Wound vacs [...] 2.7) performed by Sigifredo Garcia MD at [facility] OR ? ? PRO DEBRIDEMENT MUSCLE AND FASCIA 20 SQ CM/< Left 01/26/2022 DEBRIDEMENT SKIN, SUBCU, MUSCLE, UPPER EXTREMITY (WRVU 2.7) performed by Sigifredo Garcia MD at [facility] MAIN OR ??? PRO DECOMP FOREARM, 2 COMPART, W/O DEBRIDE Left 01/23/2022 FASCIOTOMY; FOREARM AND\OR WRIST, FLEXOR & EXTENS. COMP (WRVU 10.79) performed by Sigifredo Garcia MD at [facility] MAIN OR ??? PRO DECOMPRESS ANT/LAT+POST LEG CMPART Left 01/23/2022 FASCIOTOMY, LOWER LEG, ALL COMPARTMENTS (WRVU 7.82) performed by Sigifredo Garcia MD at [facility] MAIN OR ??? PRO INCIS OF HIP/THIGH FASCIA Left 01/23/2022 @FASCIOTOMY,THIGH OR HIP FOR COMPARTMENT SYNDROME (WRVU 12.89) performed by Sigifredo Garcia MD at [facility] OR ??? PRO OPEN TREAT MANDIBLE CONDYLE FX, COMPL 04/27/2013 OPEN TREATMENT, COMPLEX MANDIBLE FX., MULTI APPROACH, W/ FIXATION performed by Kishore Neil MD at [facility] MAIN OR ??? PRO REVISE MEDIAN N/CARPAL TUNNEL SURG Left 01/23/2022 MEDIAN NERVE DECOMPRESSION (CARPAL TUNNEL RELEASE) (WRVU 4.97) performed by Sigifredo Garcia MD at [facility] MAIN OR ??? PRO SEC CLSR SURG WOUND/DEHSN EXTENSIVE/COMPLICATED Left 01/26/2022 SECONDARY CLOSURE SURGICAL WOUND OR DEHISCENCE, EXTENSIVE OR COMPLICATED, UPPER EXTREMITY (WRVU 12.04) performed by Sigifredo Garcia MD at [facility] MAIN OR Social History: Patient lives in [place], [place] with his dad. Home Setup: 2 [address], 2 level home, bedroom on 1st level, bathroom available on 1st level, has a tub shower downstairs. DME:none Baseline ADL/Mobility: Pt reports he was independent w/ aDL's and IADL's, had worked for a [employer] He enjoys hunting and fishing. He reports he likes [employer] music (when asked) Precautions/Special Considerations: at risk [...] oriented to: person, thought he was at [facility] (reoriented to ), when asked the [...] functional position. He and RN were educated reglam rding stretching his fingers into flexion and [...] and measurable assessment of functional outcome. Pager: [phone] JACK JOE OT 01/29/2022 Occupational Therapy Rehabilitation [...] be placed/TF cannot reach goal On shift BUYING INTERN Suggest Nepro with a goal rate of 45 ml per hour + 8 scoops protein powder daily This rate is calculated to compensate for unplanned time off feedings due to potential procedures, etc. At goal, this will provide 900 ml formula, 1820 calories, 121 grams protein, 654 ml water from formula, and 95% of RDI's for vitamins and minerals. Monitor weight Monitor manuel Lam was able to discuss plan with provider ARLETH Martinez pager #[phone]. All Active TF Orders: Peptamen Intense VHP [...] Other Sites: Wound vac Relevant medications: shift BUYING INTERN, D10 at 100ml/hr, colace, marinol, folic acid, [...] encounter: 116.7 kg (257 lb 4.4 oz). [place] Body Weight: 81 kg Usual Body Weight: [...] sedation and extubated. Pt now on shift BUYING INTERN. TF frequently held for OR, have not advanced past trickle TF. TF d/c today, no access at this time. 01/25: Patient intubated and sedated. Pt to OR today for wound vacs. Estimated needs: Calories: 1418-9437 (20-25 kcal/kg IBW) for the first 7-10 days in the ICU Protein: 122 grams (1.5 g/kg IBW) while on shift BUYING INTERN Average tube feeding provision over past 3 [...] BUSTER J Parenteral Enteral Nutr. 2011; 36(3): 273-73) Nutrition to continue to follow up while inpatient Thank you, Charlotte Castañeda RD Pager #:[phone] Meghan Prabhakar, PT - 01/29/2022 10:35 AM [...] calf forearm and wrist (01/23) and I+D LUE LLJuan (01/26). Previously completed treatment for aspiration pneumonia [...] 2.7) performed by Sigifredo Garcia MD at [facility] MAIN OR ? ? PRO DEBRIDEMENT MUSCLE AND FASCIA 20 SQ CM/< Left 01/26/2022 DEBRIDEMENT SKIN, SUBCU, MUSCLE, UPPER EXTREMITY (WRVU 2.7) performed by Sigifredo Garcia MD at [facility] MAIN OR ??? PRO DECOMP FOREARM, 2 COMPART, W/O DEBRIDE Left 01/23/2022 FASCIOTOMY; FOREARM AND\OR WRIST, FLEXOR & EXTENS. COMP (WRVU 10.79) performed by Sigifredo Garcia MD at [facility] MAIN OR ??? PRO DECOMPRESS ANT/LAT+POST LEG CMPART Left 01/23/2022 FASCIOTOMY, LOWER LEG, ALL COMPARTMENTS (WRVU 7.82) performed by Sigifredo Garcia MD at [facility] MAIN OR ??? PRO INCIS OF HIP/THIGH FASCIA Left 01/23/2022 @FASCIOTOMY,THIGH OR HIP FOR COMPARTMENT SYNDROME (WRVU 12.89) performed by Sigifredo Garcia MD at [facility] MAIN OR ??? PRO OPEN TREAT MANDIBLE CONDYLE FX, COMPL 04/27/2013 OPEN TREATMENT, COMPLEX MANDIBLE FX., MULTI APPROACH, W/ FIXATION performed by Kishore Neil MD at [facility] MAIN OR ??? PRO REVISE MEDIAN N/CARPAL TUNNEL SURG Left 01/23/2022 MEDIAN NERVE DECOMPRESSION (CARPAL TUNNEL RELEASE) (WRVU 4.97) performed by Sigifredo Garcia MD at [facility] MAIN OR ??? PRO SEC CLSR SURG WOUND/DEHSN EXTENSIVE/COMPLICATED Left 01/26/2022 SECONDARY CLOSURE SURGICAL WOUND OR DEHISCENCE, EXTENSIVE OR COMPLICATED, UPPER EXTREMITY (WRVU 12.04) performed by Sigifredo Garcia MD at [facility] MAIN OR Social History: Home setup: Pt lives with his father in a two level home with a couple [place]. Pt's bedroom and bathroom are on the first floor. The bathroom has a tub shower. Baseline Mobility/Prior level of function: Independent with mobility, ADLs and IADLs, drives, used to work for a [employer] company but is not currently working. Enjoys [...] self, hospital (but thinks he is at [facility]), and general situation but not specific [...] in this evaluation. Time IN / OUT: 5820-3001 Total Minutes, Physical Therapy: 43 (eval). Meghan Prabhakar, PT DPT 01/29/2022 Pager: [phone] Physical Therapy Inpatient Rehabilitation Department Alcira Dwyer [...] kg/m?? I/O last 3 completed shifts: In: 18145.3 [P.O.:1070; I.V.:8680.3; Other:40; NG/GT:394; IV Piggyback:303] Out: [...] Boykin MD - 01/29/2022 8:58 AM EDT [facility] MICU STAFF PROGRESS NOTE SECTION OF PULMONARY [...] Section of Pulmonary & Critical Care Pager: [phone] Armando, Doc Martinez MD - 01/29/2022 6:56 [...] the original note were not included. Meghan Prabhakra PT - 01/28/2022 1:54 PM EDT Physical Therapy Contact Note Consult received, chart reviewed. Pt is scheduled for the OR for wound closure today, plan to defer physical therapy evaluation until post-operatively. Plan to follow up tomorrow as appropriate. Meghan Prabhakar PT DPT Pager #[phone] 01/28/2022 Physical Therapy Rehabilitation Department Dai Duarte OT - 01/28/2022 11:28 AM EDT Occupational Therapy: 01/28/22 1127 Evaluation & Treatment Document Type contact Total Minutes, Occupational Therapy 0 Comment, Session Not Performed OT orders received/chart reviewed. Patient scheduled for the OR today. RN requested therapy hold for today. OT will follow up tomorrow Dai Duarte OTR/L Pager [phone] Alcira Dwyer MD - 01/28/2022 9:09 AM [...] kg/m?? I/O last 3 completed shifts: In: 96929.9 [P.O.:1150; I.V.:48217.9; NG/GT:1213; IV Piggyback:394] Out: 40489 [Urine:160; Other:94226] CBC Lab Results Component Value Date WBC [...] filter holiday overnight see if he will hop picker his urine output. We can decide tomorrow if he is a candidate for shift therapy. It is possible that he will improve enough that he could be managed with diuretics. We will continue to follow Backer, Beck Boykin MD - 01/28/2022 9:07 AM EDT [facility] MICU STAFF PROGRESS NOTE SECTION OF PULMONARY [...] Section of Pulmonary & Critical Care Pager: [phone] Parrish Esqueda MD - 01/28/2022 5:26 AM [...] per 24 hour Intake 9192.61 ml Output 56176 ml Net -1170.39 ml Body mass index [...] RN - 01/27/2022 9:16 PM EDTSummary: tele [facility] Images from the original note were [...] 0620 01/24/22 0016 PHART 7.45 7.48* 7.48* [id number] 33* 29* 30* PO2ART 114* 68* 70* [id number] 22.4 21.1 22.0 Intake/Output Summary (Last 24 hours) at 01/28/2022 0703 Last data filed at 01/28/2022 0700 Gross per 24 hour Intake 9662.51 ml Output 94704 ml Net -1043.49 ml Output: Urine 70 mL For admission: +60361.1 mL Physical Exam: General: Awake, somewhat conversational [...] Procedure Component Value Units Date/Time MRSA PCR [[id number]] Collected: 01/24/22 1310 Lab Status: Final result Specimen: Nasopharyngeal Swab Updated: 01/25/22 2224 MRSA Result Negative MRSA Interp -- Negative for methicillin-resistant Staphylococcus aureus (MRSA) This test was performed using the VBOX?? Dx System and the Xpert MRSA Assay. The MRSA target DNA was not detected. The sample processing control and probe check were valid. The performance of this test was determined by the [facility]. It has been cleared by the U.S. Food and Drug Administration for clinical use. Comment: [VERIFIED DATE]01.25.22 Verified By:Alfonso Soto (Electronic Signature) MRSA PCR [[id number]] Collected: 01/23/22 1247 Lab Status: Final result Specimen: Nasopharyngeal Swab Updated: 01/25/22 1023 MRSA Result Negative MRSA Interp -- Negative for methicillin-resistant Staphylococcus aureus (MRSA) This test was performed using the VBOX?? Dx System and the Xpert MRSA Assay. The MRSA target DNA was not detected. The sample processing control and probe check were valid. The performance of this test was determined by the [facility]. It has been cleared by the U.S. Food and Drug Administration for clinical use. Comment: [VERIFIED DATE]01.25.22 Verified By:Nroa Shay (Electronic Signature) Lower Respiratory Culture Tracheal Aspirate [[id number]] (Abnormal) (Susceptibility) Collected: 01/23/22 1150 Lab Status: [...] Sensitive [1] Gentamicin is not appropriate for [place]-therapy. [2] Oxacillin (methicillin) susceptibility is a surrogate for the oral and parenteral cephalosporins, beta-lactam combination agents (amoxicillin-clavulanate, ampicillin-sulbactam and piperacillin-tazobactam) and carbapenem agents. It is NOT a surrogate for penicillin, ampicillin or piperacillin susceptibility. Linear View Blood culture [[id number]] Collected: 01/23/22 0600 Lab Status: Final result Specimen: Blood Updated: 01/28/22 0701 Blood Culture No growth at 5 days. Blood culture [[id number]] Collected: 01/23/22 0126 Lab Status: Final result Specimen: Blood Updated: 01/28/22 0701 Blood Culture No growth at 5 days. COVID-19 PCR [[id number]] (Abnormal) Collected: 01/23/22 0044 Lab Status: Final [...] diagnosis of COVID-19 is performed using the Topple Track SARS-CoV-2 Assay as authorized by the FDA Emergency Use Authorization (EUA). This EUA assay is intended for In-vitro Diagnostic (IVD) use with respiratory specimens such as nasopharyngeal swabs collected from individuals during the acute phase of infection. This assay is performed based on the instructions for use provided by [employer] and additional guidance provided by CDC and FDA. Testing is performed in the [facility] within the Department of Pathology and Laboratory Medicine at [facility], certified under the Clinical Laboratory Improvement Amendments [...] fact sheets at the following FDA website: https://www.fda.gov/medical-devices/heppbyqcvuw-vzngjfj-6332-kewkn-07-nabrfearc- cey-oliqxujhyqnibr-uedobrv-devices/cdvzs-xdybrqfklsq-gjch SARS-Cov-2 RNA Source Trach Asp MRSA PCR [[id number]] Collected: 01/23/22 0044 Lab Status: Final result [...] of this test was determined by the [facility]. It has been cleared [...] 28, 2022 Critical Care Green Team (pager [phone]) Alcira Dwyer MD - 01/27/2022 10:10 AM [...] kg/m?? I/O last 3 completed shifts: In: 33879.5 [I.V.:63974.5; NG/GT:319; IV Piggyback:236] Out: 8974 [Urine:105; Other:8864; [...] Boykin MD - 01/27/2022 9:35 AM EDT [facility] MICU STAFF PROGRESS NOTE SECTION OF PULMONARY [...] Section of Pulmonary & Critical Care Pager: [phone] T Gail Long - 01/27/2022 6:14 AM [...] 0620 01/24/22 0016 PHART 7.45 7.48* 7.48* ANU2IAF 33* 29* 30* PO2ART 114* 68* 70* [id number] 22.4 21.1 22.0 Intake/Output Summary (Last 24 hours) at 01/27/2022 0941 Last data filed at 01/27/2022 0900 Gross per 24 hour Intake 85643.32 ml Output 7421 ml Net 3034.32 ml [...] Procedure Component Value Units Date/Time MRSA PCR [[id number]] Collected: 01/24/22 1310 Lab Status: Final result [...] of this test was determined by the [facility]. It has been cleared by the U.S. Food and Drug Administration for clinical use. Comment: [VERIFIED DATE]01.25.22 Verified By:Alfonso Soto (Electronic Signature) MRSA PCR [[id number]] Collected: 01/23/22 1247 Lab Status: Final result [...] of this test was determined by the [facility]. It has been cleared by the U.S. Food and Drug Administration for clinical use. Comment: [VERIFIED DATE]01.25.22 Verified By:Nora Shay (Electronic Signature) Lower Respiratory Culture Tracheal Aspirate [[id number]] (Abnormal) (Susceptibility) Collected: 01/23/22 1150 Lab Status: [...] Sensitive [1] Gentamicin is not appropriate for [place]-therapy. [2] Oxacillin (methicillin) susceptibility is a surrogate for the oral and parenteral cephalosporins, beta-lactam combination agents (amoxicillin-clavulanate, ampicillin-sulbactam and piperacillin-tazobactam) and carbapenem agents. It is NOT a surrogate for penicillin, ampicillin or piperacillin susceptibility. Linear View Blood culture [[id number]] Collected: 01/23/22 0600 Lab Status: Preliminary result Specimen: Blood Updated: 01/27/22 0701 Blood Culture No growth at 4 days. Blood culture [[id number]] Collected: 01/23/22 0126 Lab Status: Preliminary result Specimen: Blood Updated: 01/27/22 0701 Blood Culture No growth at 4 days. COVID-19 PCR [[id number]] (Abnormal) Collected: 01/23/22 0044 Lab Status: Final [...] diagnosis of COVID-19 is performed using the [employer] m SARS-CoV-2 Assay as authorized by the FDA Emergency Use Authorization (EUA). This EUA assay is intended for In-vitro Diagnostic (IVD) use with respiratory specimens such as nasopharyngeal swabs collected from individuals during the acute phase of infection. This assay is performed based on the instructions for use provided by [employer] and additional guidance provided by CDC and FDA. Testing is performed in the [facility] within the Department of Pathology and Laboratory Medicine at [facility], certified under the Clinical Laboratory Improvement Amendments [...] fact sheets at the following FDA website: https://www.fda.gov/medical-devices/llpwlnxbbkl-krjjjct-7546-fsvyh-58-akwxpibcj- mpa-llnyoehfioxkth-nksoski-devices/wdgxt-ttqpsuehpjo-bvhq SARS-Cov-2 RNA Source Trach Asp MRSA PCR [[id number]] Collected: 01/23/22 0044 Lab Status: Final result [...] of this test was determined by the [facility]. It has been cleared [...] 0035 -- 4 Naso/Oral Tube 01/23/22 0059 [place] sump left nostril 01/23/22 0059 left nostril 4 Consults: ortho, neuro, ACS, wound, nephrology Decision Making: Code Status: Full Disposition: ICU Suggestions for changes: Gail Long January 27, 2022 Critical Care Green Team (pager [phone]) Parrish Esqueda MD - 01/27/2022 5:32 AM [...] (01/27/22 0125) ??? ketamine 0.5 mg/kg/hr (01/27/22 6036) ??? heparin (porcine) infusion 400 Units/hr (01/26/22 457) ??? bicarbonate CRRT with 4 mEq/L K+, 3 mEq/L Ca++ 5 each (01/27/22 0000) ??? sodium phosphate 15 mL/hr (01/27/22 0339) ??? calcium gluconate Stopped (01/25/22 1204) ??? tube feeding diet 9,999 mL (01/26/222125) ??? NORepinephrine Stopped (01/26/222016) ??? fentaNYL 100 mcg/hr (01/27/22 0100) ??? dexmedeTOMIDine 0.5 mcg/kg/hr (01/27/22 0416) OBJECTIVE: Temp: [35.8 ??C (96.4 ??F)-37.7 ??C (99.9 ??F)] Heart Rate: [62-151] Resp: [-] BP: (96-165)/(50-93) Intake/Output Summary (Last 24 hours) [...] RN - 01/26/2022 8:25 PM EDTSummary: tele [facility] Images from the original note were not included. Naehd Green RT - 01/26/2022 8:21 PM EDT [...] 0620 01/24/22 0016 PHART 7.45 7.48* 7.48* [id number] 33* 29* 30* PO2ART 114* 68* 70* [id number] 22.4 21.1 22.0 Intake/Output Summary (Last 24 [...] Procedure Component Value Units Date/Time MRSA PCR [[id number]] Collected: 01/24/22 1310 Lab Status: Final result Specimen: Nasopharyngeal Swab Updated: 01/25/222223 MRSA Result Negative MRSA Interp -- Negative for methicillin-resistant Staphylococcus aureus (MRSA) This test was performed using the [employer] Dx System and the Xpert MRSA Assay. The MRSA target DNA was not detected. The sample processing control and probe check were valid. The performance of this test was determined by the [facility]. It has been cleared by the U.S. Food and Drug Administration for clinical use. Comment: [VERIFIED DATE]01.25.22 Verified By:Alfonso Soto (Electronic Signature) MRSA PCR [[id number]] Collected: 01/23/22 1247 Lab Status: Final result Specimen: Nasopharyngeal Swab Updated: 01/25/22 1023 MRSA Result Negative MRSA Interp -- Negative for methicillin-resistant Staphylococcus aureus (MRSA) This test was performed using the [employer] Dx System and the Xpert MRSA Assay. The MRSA target DNA was not detected. The sample processing control and probe check were valid. The performance of this test was determined by the [facility]. It has been cleared by the U.S. Food and Drug Administration for clinical use. Comment: [VERIFIED DATE]01.25.22 Verified By:Nora Shay (Electronic Signature) Lower Respiratory Culture Tracheal Aspirate [[id number]] (Abnormal) (Susceptibility) Collected: 01/23/22 1150 Lab Status: [...] Sensitive [1] Gentamicin is not appropriate for [place]-therapy. [2] Oxacillin (methicillin) susceptibility is a surrogate for the oral and parenteral cephalosporins, beta-lactam combination agents (amoxicillin-clavulanate, ampicillin-sulbactam and piperacillin-tazobactam) and carbapenem agents. It is NOT a surrogate for penicillin, ampicillin or piperacillin susceptibility. Linear View Blood culture [[id number]] Collected: 01/23/22 0600 Lab Status: Preliminary result Specimen: Blood Updated: 01/26/22 0701 Blood Culture No growth at 3 days. Blood culture [[id number]] Collected: 01/23/22 0126 Lab Status: Preliminary result Specimen: Blood Updated: 01/26/22 0701 Blood Culture No growth at 3 days. COVID-19 PCR [[id number]] (Abnormal) Collected: 01/23/22 0044 Lab Status: Final [...] diagnosis of COVID-19 is performed using the [employer] m SARS-CoV-2 Assay as authorized by the FDA Emergency Use Authorization (EUA). This EUA assay is intended for In-vitro Diagnostic (IVD) use with respiratory specimens such as nasopharyngeal swabs collected from individuals during the acute phase of infection. This assay is performed based on the instructions for use provided by [employer] and additional guidance provided by [facility] and FDA. Testing is performed in the [facility] within the Department of Pathology and Laboratory Medicine at [facility], certified under the Clinical Laboratory Improvement Amendments [...] fact sheets at the following FDA website: https://www.fda.gov/medical-devices/sdecoshmajr-egfcjbg-4669-ioshp-14-oczxmzzqh- ejj-gczwjfotyzoxkc-bllztiz-devices/hmlep-csbdwbkqays-ifab SARS-Cov-2 RNA Source Trach Asp MRSA PCR [[id number]] Collected: 01/23/22 0044 Lab Status: Final result Specimen: Nasopharyngeal Swab Updated: 01/25/22 1024 MRSA Result Negative MRSA Interp -- Negative for methicillin-resistant Staphylococcus aureus (MRSA) This test was performed using the [employer] Dx System and the Xpert MRSA Assay. The MRSA target DNA was not detected. The sample processing control and probe check were valid. The performance of this test was determined by the [facility]. It has been cleared [...] 0035 -- 3 Naso/Oral Tube 01/23/22 0059 [place] sump left nostril 01/23/22 0059 left nostril 3 ETT Airway 01/23/22 0116 01/23/22 0116 -- 3 Consults: ortho Decision Making: Code Status: Full Disposition: ICU Suggestions for changes: Gail Long January 26, 2022 Critical Care Green Team (pager [phone]) Nahed Fraser MD - 01/26/2022 11:32 AM [...] He is requiring full support with CVVH. DamienerBeck MD - 01/26/2022 8:00 AM EDT [facility] MICU STAFF PROGRESS NOTE SECTION OF PULMONARY [...] Section of Pulmonary & Critical Care Pager: [phone] Kris Dean MD - 01/26/2022 6:01 AM EDT ORTHOPAEDIC SURGERY INPATIENT PROGRESS NOTE Patient Name: Alix [facility] Age: 31 y.o. Surgery/Issue: L forearm, thigh, buttock, leg compartment syndrome s/p fasciotomies Attending: Jose Date of surgery: 01/23/2022 SUBJECTIVE / INTERVAL HISTORY: Alix remains intubated and sedated, but per hourly sales staff he is moving bilateral upper and lower [...] of fasciotomy sites. - Activity: NWB LUE, NWSal LLE - Antibiotics: rec Ancef - DVT [...] Patient would occasionally take exceptionally large Vt's, ylxyfv0mtv >2 liters. This was not typical however, and for the majority of the [facility] patient was comfortable with MV support. Continue [...] kg/m?? I/O last 3 completed shifts: In: 85212 [I.V.:9488; NG/GT:97; IV Piggyback:904] Out: 5394 [Urine:171; [...] Boykin MD - 01/25/2022 7:53 AM EDT [facility] MICU STAFF PROGRESS NOTE SECTION OF PULMONARY [...] MICU Attending Pulmonary & Critical Care Pager: [phone] Kris Dean MD - 01/25/2022 5:55 AM EDT ORTHOPAEDIC SURGERY INPATIENT PROGRESS NOTE Patient Name: Alix [facility] Age: 31 y.o. Surgery/Issue: L forearm, thigh, buttock, leg compartment syndrome s/p fasciotomies Attending: Jose Date of surgery: 01/23/2022 SUBJECTIVE / INTERVAL HISTORY: Alix remains intubated and sedated, but per hourly sales staff he is moving bilateral upper and lower [...] of fasciotomy sites. - Activity: NWB LIZE, NWB LLE - Antibiotics: rec Ancef - [...] 1810 01/23/22 1156 PHART 7.48* 7.46* 7.43 [id number] 29* 31* 32* PO2ART 68* 79* 86 [id number] 21.1 21.5 20.8 Intake/Output Summary (Last 24 [...] Units Date/Time Lower Respiratory Culture Tracheal Aspirate [[id number]] (Abnormal) Collected: 01/23/22 1150 Lab Status: Preliminary result Specimen: Tracheal Aspirate Updated: 01/24/22 0848 Lower Respiratory Culture -- Many Staphylococcus aureus Few mixed bacterial morphotypes suggestive of normal upper respiratory yessy Gram Stain -- Many Neutrophils No squamous epithelial cells Moderate Gram Positive Cocci Blood culture [[id number]] Collected: 01/23/22 0600 Lab Status: Preliminary result Specimen: Blood Updated: 01/24/22 0701 Blood Culture No growth at 1 day. Blood culture [[id number]] Collected: 01/23/22 0126 Lab Status: Preliminary result Specimen: Blood Updated: 01/24/22 0701 Blood Culture No growth at 1 day. COVID-19 PCR [[id number]] (Abnormal) Collected: 01/23/22 0044 Lab Status: Final [...] diagnosis of COVID-19 is performed using the [employer] m SARS-CoV-2 Assay as authorized by the FDA Emergency Use Authorization (EUA). This EUA assay is intended for In-vitro Diagnostic (IVD) use with respiratory specimens such as nasopharyngeal swabs collected from individuals during the acute phase of infection. This assay is performed based on the instructions for use provided by [employer] and additional guidance provided by CDC and FDA. Testing is performed in the [facility] within the Department of Pathology and Laboratory Medicine at [facility], certified under the Clinical Laboratory Improvement Amendments [...] fact sheets at the following FDA website: https://www.fda.gov/medical-devices/fsvomqvibpb-sduvdet-6667-qivps-09-jzuoxjpij- bnb-ufmymbiygihsyc-gisgjcc-devices/klthq-caucomobdoa-bcmd SARS-Cov-2 RNA Source Trach Asp ECG: Telemetry [...] who have questions please contact the health memory care program director that requested your imaging first. Head wo Contrast (Generic) (Exam End: 01/23/2022 3:58 AM) Impression Globi pallidi infarcts. Mild cerebral edema. Thank you for letting us participate in the care of this patient. If you are a health care provider and have any questions regarding this report, please contact the number below. For patients who have questions please contact the health memory care program director that requested your imaging first. Electronically signed by: Rex Addison MD, [facility] ([phone]), at 01/23/2022 4:27 AM XR Abdomen 1 [...] who have questions please contact the health memory care program director that requested your imaging first. Electronically signed by: Jacky Mello MD, [facility] ([phone]), at 01/23/2022 8:[address] Lower Extremity [...] who have questions please contact the health memory care program director that requested your imaging first. Electronically signed by: Melita Mills MD, [facility] ([phone]), at 01/24/2022 1:[address] Chest wo [...] who have questions please contact the health memory care program director that requested your imaging first. Electronically signed by: Rex Addison MD, [facility] ([phone]), at 01/23/2022 4:[address] Upper Extremity [...] who have questions please contact the health memory care program director that requested your imaging first. Electronically signed by: Rex Addison MD, [facility] ([phone]), at 01/23/2022 4:58 AM XR Forearm Left [...] who have questions please contact the health memory care program director that requested your imaging first. Chest One [...] who have questions please contact the health memory care program director that requested your imaging first. Electronically signed by: Rex Addison MD, [facility] ([phone]), at 01/23/2022 6:56 AM XR Femur 2 views Left (Generic) (Exam End: 01/23/2022 2:04 PM) Impression No significant osseous finding. Thank you for letting us participate in the care of this patient. If you are a health care provider and have any questions regarding this report, please contact the number below. For patients who have questions please contact the health memory care program director that requested your imaging first. Electronically signed by: Lisandro Pruett MD, [facility] ([phone]), at 01/23/2022 2:10 PM XR Tibia Fibula Left (Generic) (Exam End: 01/23/2022 2:04 PM) Impression No bony abnormality seen. Thank you for letting us participate in the care of this patient. If you are a health care provider and have any questions regarding this report, please contact the number below. For patients who have questions please contact the health memory care program director that requested your imaging first. Electronically signed by: Jacky Mello MD, [facility] ([phone]), at 01/23/2022 2:07 PM XR Chest One [...] who have questions please contact the health memory care program director that requested your imaging first. Electronically signed by: Lisandro Pruett MD, [facility] ([phone]), at 01/23/2022 5:01 PM Assessment: Alix is [...] 24, 2022 Critical Care Green Team (pager [phone]) Angelina Meek MD - 01/24/2022 3:02 PM EDT Nephrology Attending Procedure note: CRRT Alix [facility] was seen and examined on CVVH. Data and chart reviewed. The case was discussed with the CCS team 31 y.o.??male?? presented to ICU having been found down at home conscious but then experienced agy-ah-quzkzark cardiac arrest with ROSC, severe hyperkalemia, rhabdomyolysis, [...] treatment for lisinopril, GERD was brought to [facility] via EMS today after he was notedto have a cardiac arrest. He had a hospital admission at [facility] in Apr 2021 for angioedema. During that admission, he had initially presented at [facility] with facial and oropharyngeal swelling and had to be fibreoptically intubated in the OR. He was transferred to [facility] for further management and received treatment with [...] EMS was called and en route to [facility], he was noted to be in possible SVT. He was given narcan which did not help. The details are slightly uncertain/unclear. On arrival to [facility], he was noted to have a V. tach arrest for which she was shocked. He is lab work was consistent with hyperkalemia with a potassium of 7.8 for which she received multiple doses of sodium bicarbonate, calcium gluconate and insulin/D10 with improvement in potassium to5.4. He was also intubated at [facility] and was transferred to [facility] for further management. He was found to be COVID-positive at [facility]. On arrival to [facility], he was again noted to be hyperkalemic [...] to OSH and and after arrival to [facility], was weaned to minimal oxygen support. CT [...] eyes with verbal stimulus. Has followed commands. [facility] labs and studies: 01/24/2022 WBC 11.4 hemoglobin 14.8 hematocrit 41.7 platelets 136 ABG 7.4 03/29/1967 Sodium 136 potassium 4.4 chloride 103 [place] [address] Total bilirubin 0.5 AST 1181 ALT 682 [...] 0035 -- 1 Naso/Oral Tube 01/23/22 0059 [place] sump left nostril 01/23/22 0059 left nostril [...] on CRRT. Hg 14.8, CK remains elevated 84971. AFVSS, NAEON. No motor or sensory exam [...] SBT Protocol: Yes SBT: Not performed per INSTRUMENT CHECKER availability. Vent Settings: Ventilator Mode: PS/CPAP PEEP [...] >220,000 (H) 0 - 200 unit/L TSH Wilkinson Result Value Ref Range TSH 7.69 (H) [...] Value Ref Range T&S only valid at [facility] Triglyceride Result Value Ref Range [...] mcL Appearance UA Cloudy (A) Clear Spec Harmony UA >=1.030 (A) 1.006 - 1.030 Color [...] - 4.5 mg/dL Blood Gas Arterial ([facility]) Result Value Ref Range pH Art 7.37 [...] Skin Integrity: WDL Ambu bag setup at [facility] Breath Sounds: coarse/diminished Secretions: scant [...] down at home conscious but then experienced dta-ye-ajqsniom cardiac arrest with ROSC, severe hyperkalemia, rhabdomyolysis, [...] total and Settings verification AND Assess ??? [MAR Hold] propofoL (Diprivan) (10 mg/mL) infusion AND [...] EMS. Patient had cardiac arrest enroute to [facility] ED for which Jitendra CPR was [...] -Tylenol, - salicylates, -ETOH. Upon arrival to [facility], pt intubated and ventilator-noncompliant. Ketamine boluses given [...] 01/23/22 0721 01/23/22 0125 PHART 7.37 7.32* [id number] 28* 33* PO2ART 96 68* IAJ8FOA 15.7* 16.8* Intake/Output Summary (Last 24 hours) [...] who have questions please contact the health memory care program director that requested your imaging first. Head wo Contrast (Generic) (Exam End: 01/23/2022 3:58 AM) Impression Globi pallidi infarcts. Mild cerebral edema. Thank you for letting us participate in the care of this patient. If you are a health care provider and have any questions regarding this report, please contact the number below. For patients who have questions please contact the health memory care program director that requested your imaging first. Electronically signed by: Rex Addison MD, [facility] ([phone]), at 01/23/2022 4:27 AM XR Abdomen 1 [...] who have questions please contact the health memory care program director that requested your imaging first. Electronically signed by: Jacky Mello MD, [facility] ([phone]), at 01/23/2022 8:[address] Chest wo [...] who have questions please contact the health memory care program director that requested your imaging first. Electronically signed by: Rex Addison MD, [facility] ([phone]), at 01/23/2022 4:[address] Upper Extremity [...] who have questions please contact the health memory care program director that requested your imaging first. Electronically signed by: Rex Addison MD, [facility] ([phone]), at 01/23/2022 4:58 AM XR Forearm Left [...] who have questions please contact the health memory care program director that requested your imaging first. Electronically signed by: Rex Addison MD, [facility] ([phone]), at 01/23/2022 7:14 AM XR Chest One [...] who have questions please contact the health memory care program director that requested your imaging first. Assessment: Alix [...] FiO2 weaned to 30% since admission to [facility]. He has also been febrile with Tmax [...] 23, 2022 Critical Care Green Team (pager [phone]) Tex Robles MD - 01/23/2022 8:22 AM EDT MICU STAFF ADMISSION NOTE Critical Care Medicine Author: Tex Robles MD Patient seen and examined on admission to the ICU. HPI Alix [facility] is a 31 y.o. male with PMH of Polysubstance abuse including alcohol, HTN with prior treatment for lisinopril, GERD was brought to [facility] via EMS today after he was notedto have a cardiac arrest. He had a hospital admission at [facility] in Apr 2021 for angioedema. During that admission, he had initially presented at [facility] with facial and oropharyngeal swelling and had to be fibreoptically intubated in the OR. He was transferred to [facility] for further management and received treatment with [...] EMS was called and en route to [facility], he was noted to be in possible SVT. He was given narcan which did not help. The details are slightly uncertain/unclear. On arrival to [facility], he was noted to have a V. tach arrest for which she was shocked. He is lab work was consistent with hyperkalemia with a potassium of 7.8 for which she received multiple doses of sodium bicarbonate, calcium gluconate and insulin/D10 with improvement in potassium to5.4. He was also intubated at [facility] and was transferred to [facility] for further management. He was found to be COVID-positive at [facility]. On arrival to [facility], he was again noted to be hyperkalemic [...] to OSH and and after arrival to [facility], was weaned to minimal oxygen support. CT [...] done by CHRISTA today given COVID precautions. [facility] labs and studies: WBC 4.1 hemoglobin 17.6 [...] less than 1 Naso/Oral Tube 01/23/22 0059 [place] sump left nostril 01/23/22 0059 left nostril [...] Wen MD - 01/23/2022 4:37 AM EDT [facility] TeleICU Initial Assessment Note I established audio/visual communication with the patient's room, reviewed the eDH, and discussed the patient's case with transfer center and ICU fellow. History and Assessment: 31 y.o. male w/ PMHx of HTN, angioedema and polysubstance abuse (cocaine, EtOH and heroin) transferred from [facility] ED after having presented there with an [id number] arrest. He reportedly took fentanyl. EMS administered [...] Result Value CK, Total >220,000 (H) TSH Wilkinson Result Value TSH 7.69 (H) ABO/Rh Typing [...] Validity Result Value T&S only valid at [facility] Triglyceride Result Value Triglycerides 273 T4, free Result Value Free T4 1.19 _Urinalysis with microscopic Result Value Glucose UA Negative Protein UA >=300 (A) Bilirubin UA Moderate (A) Urobilinogen UA Normal pH UA 6.5 Blood UA Large (A) Ketones UA Trace (A) Nitrite UA Positive (A) Leukocytes UA Negative Appearance UA Cloudy (A) Spec Harmony UA >=1.030 (A) Color UA Brown (A) [...] arrest for which he is now at [facility] being treated. On exam primary team found [...] yet resuscitated, with elevated Hg 21.5, CK >758745, and K 7.6 which may be contributing to his nonpalpable pulse. His troponins remain elevatd at 0.43. I discussed with the primary team the importance of resuscitation. I discussed that without a patient that can participate in exam diagnosis of compartment syndrome can be more challenging, and we will therefore plan for Crowell compartment check when patient back from CT [...] Santos MD - 03/15/2022 6:22 AM EDT [facility] General Surgery History and Physical ID: Alix [...] Arteriogram Lower Extremity 02/06/2022 Nicole Vivas MD [facility] INTERVENTIONL RAD ??? PRO DEBRIDEMENT BONE EA ADDL 20 SQCM 02/08/2022 EACH ADDITIONAL 20 SQ CM, OR PART THEREOF (WRVU 1.8) performed by Jeanette Chatterjee MD at [facility]E ? ? PRO DEBRIDEMENT [...] 4.1) performed by Jose Branch MD at [facility] MAIN OR ? ? PRO DEBRIDEMENT BONE MUSCLE &/FASCIA 20 SQ CM/< Left 01/31/2022 DEBRIDEMENT SKIN, SUBCU, MUSCLE, BONE UPPER EXTREMITY (WRVU 4.1) performed by Jose Branch MDat [facility] MAIN OR ? ? PRO DEBRIDEMENT BONE MUSCLE &/FASCIA 20 SQ CM/< Left 02/02/2022 DEBRIDEMENT SKIN, SUBCU, MUSCLE, BONE UPPER EXTREMITY (WRVU 4.1) performed by Hina Starks MD at [facility] OR ? ? PRO DEBRIDEMENT BONE MUSCLE &/FASCIA 20 SQ CM/< Left 02/02/2022 DEBRIDEMENT SKIN, SUBCU, MUSCLE, BONE, LOWER EXTREMITY (WRVU 4.1) performed by Hina Starks MD at [facility] OR ? ? PRO DEBRIDEMENT MUSCLE AND FASCIA 20 SQ CM/< Left 01/26/2022 DEBRIDEMENT SKIN, SUBCU, MUSCLE, LOWER EXTREMITY (WRVU 2.7) performed by Sigifredo Garcia MD at [facility] OR ? ? PRO DEBRIDEMENT MUSCLE AND FASCIA 20 SQ CM/< Left 01/26/2022 DEBRIDEMENT SKIN, SUBCU, MUSCLE, UPPER EXTREMITY (WRVU 2.7) performed by Sigifredo Garcia MD at [facility] OR ? ? PRO DEBRIDEMENT MUSCLE AND FASCIA 20 SQ CM/< Left 02/05/2022 DEBRIDEMENT SKIN, SUBCU, MUSCLE, LOWER EXTREMITY (WRVU 2.7) performed by Tom Valdovinos MD at [facility] OR ? ? PRO DEBRIDEMENT MUSCLE AND FASCIA 20 SQ CM/< Left 02/04/2022 DEBRIDEMENT SKIN, SUBCU, MUSCLE, LOWER EXTREMITY (WRVU 2.7) performed by Sigifredo Garcia MD at [facility] OR ? ? PRO DEBRIDEMENT MUSCLE AND FASCIA 20 SQ CM/< Left 02/15/2022 DEBRIDEMENT SKIN, SUBCU, MUSCLE, UPPER EXTREMITY (WRVU 2.7) performed by Jayme Armstrong MD at [facility] OR ? ? PRO DEBRIDEMENT MUSCLE AND FASCIA 20 SQ CM/< Left 02/19/2022 DEBRIDEMENT SKIN, SUBCU, MUSCLE, LOWER EXTREMITY (WRVU 2.7) performed by Jayme Armstrong MD at [facility] OR ? ? PRO DEBRIDEMENT MUSCLE AND FASCIA 20 SQ CM/< Left 02/22/2022 DEBRIDEMENT SKIN, SUBCU, MUSCLE, LOWER EXTREMITY (WRVU 2.7) performed by Parrish Betancourt MD at [facility] OR ? ? PRO DEBRIDEMENT MUSCLE AND FASCIA 20 SQ CM/< Left 02/24/2022 DEBRIDEMENT SKIN, SUBCU, MUSCLE, LOWER EXTREMITY (WRVU 2.7) performed by Parrish Betancourt MD at [facility] OR ? ? PRO DEBRIDEMENT MUSCLE AND FASCIA 20 SQ CM/< Left 02/26/2022 DEBRIDEMENT SKIN, SUBCU, MUSCLE, UPPER EXTREMITY (WRVU 2.7) performed by Parrish Betancourt MD at [facility] OR ? ? PRO DEBRIDEMENT SUBCUTANEOUS TISSUE 20 SQCM/< Left 02/04/2022 DEBRIDEMENT SKIN AND SUBCU, UPPER EXTREMITY (WRVU 1.01) performed [facility] ? ? PRO DEBRIDEMENT SUBCUTANEOUS TISSUE 20 SQCM/< Left 02/08/2022 DEBRIDEMENT SKIN AND SUBCU, LOWER EXTREMITY (WRVU 1.01) performed by Jeanette Chatterjee MD at [facility] OR ? ? PRO DEBRIDEMENT SUBCUTANEOUS TISSUE 20 SQCM/< Left 02/09/2022 DEBRIDEMENT SKIN AND SUBCU, LOWER EXTREMITY (WRVU 1.01) performed by Jeanette Chatterjee MD at [facility] OR ? ? PRO DEBRIDEMENT SUBCUTANEOUS TISSUE 20 SQCM/< Left 02/11/2022 DEBRIDEMENT SKIN AND SUBCU, LOWER EXTREMITY (WRVU 1.01) performed by Parrish Betancourt MD at [facility] OR ? ? PRO DEBRIDEMENT SUBCUTANEOUS TISSUE 20 SQCM/< Left 02/13/2022 DEBRIDEMENT SKIN AND SUBCU, LOWER EXTREMITY (WRVU 1.01) performed by Jeanette Chatterjee MD at [facility] OR ? ? PRO DEBRIDEMENT SUBCUTANEOUS TISSUE 20 SQCM/< Left 02/15/2022 DEBRIDEMENT SKIN AND SUBCU, LOWER EXTREMITY (WRVU 1.01) performed by Jayme Armstrong MD at [facility] OR ? ? PRO DEBRIDEMENT SUBCUTANEOUS TISSUE 20 SQCM/< Left 02/17/2022 DEBRIDEMENT SKIN AND SUBCU, LOWER EXTREMITY (WRVU 1.01) performed by Jayme Armstrong MD at [facility] OR ??? PRO DECOMP FOREARM, 2 COMPART, W/O DEBRIDE Left 01/23/2022 FASCIOTOMY; FOREARM AND\OR WRIST, FLEXOR & EXTENS. COMP (WRVU 10.79) performed by Sigifredo Garcia MD at [facility] OR ??? PRO DECOMPRESS ANT/LAT+POST LEG CMPART Left 01/23/2022 FASCIOTOMY, LOWER LEG, ALL COMPARTMENTS (WRVU 7.82) performed by Sigifredo Garcia MD at [facility] OR ??? PRO DRESSING CHANGE UNDER ANESTHESIA Left 02/11/2022 DRESSING CHANGE (FOR OTHER THAN GALLOWAY) UNDER ANES., UPPER EXTREMITY (WRVU 0.86) performed by Parrish Betancourt MD at [facility] OR ??? PRO DRESSING CHANGE UNDER ANESTHESIA Left 02/13/2022 DRESSING CHANGE (FOR OTHER THAN GALLOWAY) UNDER ANES., UPPER EXTREMITY (WRVU 0.86) performed by Jeanette Chatterjee MD at [facility] OR ??? PRO DRESSING CHANGE UNDER ANESTHESIA Left 02/17/2022 DRESSING CHANGE (FOR OTHER THAN GALLOWAY) UNDER ANES., UPPER EXTREMITY (WRVU 0.86) performed by Jayme Armstrong MD at [facility] OR ??? PRO DRESSING CHANGE UNDER ANESTHESIA Left 02/19/2022 DRESSING CHANGE (FOR OTHER THAN GALLOWAY) UNDER ANES., UPPER EXTREMITY (WRVU 0.86) performed by Jayme Armstrong MD at [facility] OR ??? PRO DRESSING CHANGE UNDER ANESTHESIA Left 02/22/2022 DRESSING CHANGE (FOR OTHER THAN GALLOWAY) UNDER ANES., UPPER EXTREMITY (WRVU 0.86) performed by Parrish Betancourt MD at [facility] OR ??? PRO DRESSING CHANGE UNDER ANESTHESIA Left 02/24/2022 DRESSING CHANGE (FOR OTHER THAN GALLOWAY) UNDER ANES., UPPER EXTREMITY (WRVU 0.86) performed by Parrish Betancourt MD at [facility] OR ??? PRO DRESSING CHANGE UNDER ANESTHESIA Left 02/26/2022 DRESSING CHANGE (FOR OTHER THAN GALLOWAY) UNDER ANES., LOWER EXTREMITY (WRVU 0.86) performed by Parrish Betacnourt MD at [facility] OR ??? PRO DRESSING CHANGE UNDER ANESTHESIA Left 02/26/2022 DRESSING CHANGE (FOR OTHER THAN GALLOWAY) UNDER ANES., UPPER EXTREMITY (WRVU 0.86) performed by Parrish Betancourt MD at [facility] OR ??? PRO DRESSING CHANGE UNDER ANESTHESIA Left 03/01/2022 DRESSING CHANGE (FOR OTHER THAN GALLOWAY) UNDER ANES., LOWER EXTREMITY (WRVU 0.86) performed by Willie Sanabria MD at [facility] OR ??? PRO DRESSING CHANGE UNDER ANESTHESIA N/A 03/01/2022 DRESSING CHANGE (FOR OTHER THAN GALLOWAY) UNDER ANES., UPPER EXTREMITY (WRVU 0.86) performed by Willie Sanabria MD at [facility] OR ??? PRO DRESSING CHANGE UNDER ANESTHESIA Left 03/13/2022 DRESSING CHANGE (FOR OTHER THAN GALLOWAY) UNDER ANES., UPPER EXTREMITY (WRVU 0.86) performed by Willie Sanabria MD at [facility] OR ??? PRO DRESSING CHANGE UNDER ANESTHESIA Left 03/13/2022 DRESSING CHANGE (FOR OTHER THAN GALLOWAY) UNDER ANES., LOWER EXTREMITY (WRVU 0.86) performed by Willie Sanabria MD at [facility] OR ? ? PRO I&D DEEP ABSCESS BURSA/HEMATOMA THIGH/KNEE REGION Left 02/06/2022 INCISION & DRAINAGE ABSCESS OR HEMATOMA, THIGH, KNEE SUPERFICIAL (WRVU 6.78) performed by Jayme Armstrong MD at [facility] OR ??? PRO INCIS OF HIP/THIGH FASCIA Left 01/23/2022 @FASCIOTOMY,THIGH OR HIP FOR COMPARTMENT SYNDROME (WRVU 12.89) performed by Sigifredo Garcia MD at [facility] OR ??? PRO NEGATIVE PRESSURE WOUND THERAPY, LESS THAN OR EQUAL TO 50 SQCM Left 02/05/2022 DRESSING CHANGE (VAC ASSISTED) UP TO 50SQ.CM (WRVU 0.55) performed by Orville Hennessy MD at [facility] OR ??? PRO NEGATIVE PRESSURE WOUND THERAPY, LESS THAN OR EQUAL TO 50 SQCM Left 02/05/2022 DRESSING CHANGE (VAC ASSISTED) UP TO 50SQ.CM (WRVU 0.55) performed by Tom Valdovinos MD at [facility] OR ??? PRO NEGATIVE PRESSURE WOUND THERAPY, LESS THAN OR EQUAL TO 50 SQCM Left 02/08/2022 DRESSING CHANGE (VAC ASSISTED) UP TO 50SQ.CM (WRVU 0.55) performed by Jeanette Chatterjee MD at [facility] OR ??? PRO NEGATIVE PRESSURE WOUND THERAPY, LESS THAN OR EQUAL TO 50 SQCM Left 03/03/2022 DRESSING CHANGE (VAC ASSISTED) UP TO 50SQ.CM (WRVU 0.55) performed by Willie Sanabria MD at [facility] MAIN OR ??? PRO OPEN TREAT MANDIBLE CONDYLE FX, COMPL 04/27/2013 OPEN TREATMENT, COMPLEX MANDIBLE FX., MULTI APPROACH, W/ FIXATION performed by Kishore Neil MD at [facility] MAIN OR ??? PRO REVISE MEDIAN N/CARPAL TUNNEL SURG Left 01/23/2022 MEDIAN NERVE DECOMPRESSION (CARPAL TUNNEL RELEASE) (WRVU 4.97) performed by Sigifredo Garcia MD at [facility] MAIN OR ??? PRO SEC CLSR SURG WOUND/DEHSN EXTENSIVE/COMPLICATED Left 01/26/2022 SECONDARY CLOSURE SURGICAL WOUND OR DEHISCENCE, EXTENSIVE OR COMPLICATED, UPPER EXTREMITY (WRVU 12.04) performed by Sigifredo Garcia MD at [facility] MAIN OR ??? PRO SKIN SUB GRAFT TRNK/ARM/LEG AREA UNDER 100SQCM EA ADL 25SQCM Left 03/10/2022 APPL SKIN SUB GRAFT TO LEGS, TO 100 SQ CM; EA ADD'L 25 SQ CM AREA (WRVU 0.33) performed by Parrish Betancourt MD at [facility] MAIN OR ??? PRO SKIN SUB GRAFT TRNK/ARM/LEG AREA UNDER 100SQCM EA ADL 25SQCM Left 03/10/2022 APPL SKIN SUB GRAFT TO ARMS, TO 100 SQ CM; EA ADD'L 25 SQ CM AREA (WRVU 0.33) performed by Parrish Betancourt MD at [facility] MAIN OR Current Facility-Administered Medications: ??? MEROpenem (Merrem) 1 g vial attach to sodium chloride 0.9% 100 mL Mini-Bag Plus, 1 g, Intravenous, Q8H, Nancy Chahal MD, Stopped at 03/15/22 0210 ??? vancomycin (Vancocin) capsule 125 mg, 125 mg, Oral, BID, Floridalma Sandoval MD, 125 mg at 03/14/22 5813 ??? vancomycin (Vancocin) 1 gram in sodium [...] mg/mL) in sodium chloride 0.9% 50 mL CMM OPERATOR infusion, , Intravenous, CMM OPERATOR Only, Jareth Alonzo MD, 50 mg at [...] Q1 Min PRN, Kinjal Alonzo MD ??? CMM OPERATOR hutton, , Intravenous, Continuous PRN, Jareth Alonzo MD ??? HYDROmorphone (mg) CMM OPERATOR shift total and Settings verification, , Intravenous, 2 Times Daily- CMM OPERATOR Shift Total, Jareth Alonzo MD ??? docusate sodium (Colace) capsule 100 mg, 100 mg, Oral, BID, Jareth Alonzo MD, 100 mg at 03/14/22 2147 ??? heparin (porcine) (5,000 units/1 mL) subcutaneous injection 5,000 Units, 5,000 Units, Subcutaneous, Q8H [place], Jareth Alonzo MD, 5,000 Units at 03/15/22 2999 ??? naloxone (Narcan) (0.4 mg/mL) injection 0.04 [...] ready to proceed. - meropenem, vancomycin - [facility] Elaine Dos Santos MD 03/15/2022 Elaine Dos Santos MD - 03/10/2022 6:15 AM EDT [facility] General Surgery History and Physical Alix Holland [...] Arteriogram Lower Extremity 02/06/2022 Nicole Vivas MD [facility] INTERVENTIONL RAD ??? PRO DEBRIDEMENT BONE EA ADDL 20 SQCM 02/08/2022 EACH ADDITIONAL 20 SQ CM, OR PART THEREOF (WRVU 1.8) performed by Jeanette Chatterjee MD at [facility] ? ? PRO DEBRIDEMENT [...] 4.1) performed by Jose Branch MD at [facility] MAIN OR ? ? PRO DEBRIDEMENT BONE MUSCLE &/FASCIA 20 SQ CM/< Left 01/31/2022 DEBRIDEMENT SKIN, SUBCU, MUSCLE, BONE UPPER EXTREMITY (WRVU 4.1) performed by Jose Branch MDat [facility] MAIN OR ? ? PRO DEBRIDEMENT BONE MUSCLE &/FASCIA 20 SQ CM/< Left 02/02/2022 DEBRIDEMENT SKIN, SUBCU, MUSCLE, BONE UPPER EXTREMITY (WRVU 4.1) performed by Hina Starks MD at [facility] MAIN OR ? ? PRO DEBRIDEMENT BONE MUSCLE &/FASCIA 20 SQ CM/< Left 02/02/2022 DEBRIDEMENT SKIN, SUBCU, MUSCLE, BONE, LOWER EXTREMITY (WRVU 4.1) performed by Hina Starks MD at [facility] MAIN OR ? ? PRO DEBRIDEMENT MUSCLE AND FASCIA 20 SQ CM/< Left 01/26/2022 DEBRIDEMENT SKIN, SUBCU, MUSCLE, LOWER EXTREMITY (WRVU 2.7) performed by Sigifredo Garcia MD at [facility] MAIN OR ? ? PRO DEBRIDEMENT MUSCLE AND FASCIA 20 SQ CM/< Left 01/26/2022 DEBRIDEMENT SKIN, SUBCU, MUSCLE, UPPER EXTREMITY (WRVU 2.7) performed by Sigifredo Garcia MD at [facility] MAIN OR ? ? PRO DEBRIDEMENT MUSCLE AND FASCIA 20 SQ CM/< Left 02/05/2022 DEBRIDEMENT SKIN, SUBCU, MUSCLE, LOWER EXTREMITY (WRVU 2.7) performed by Tom Valdovinos MD at [facility] MAIN OR ? ? PRO DEBRIDEMENT MUSCLE AND FASCIA 20 SQ CM/< Left 02/04/2022 DEBRIDEMENT SKIN, SUBCU, MUSCLE, LOWER EXTREMITY (WRVU 2.7) performed by Sigifredo Garcia MD at [facility] OR ? ? PRO DEBRIDEMENT MUSCLE AND FASCIA 20 SQ CM/< Left 02/15/2022 DEBRIDEMENT SKIN, SUBCU, MUSCLE, UPPER EXTREMITY (WRVU 2.7) performed by Jayme Armstrong MD at [facility] OR ? ? PRO DEBRIDEMENT MUSCLE AND FASCIA 20 SQ CM/< Left 02/19/2022 DEBRIDEMENT SKIN, SUBCU, MUSCLE, LOWER EXTREMITY (WRVU 2.7) performed by Jayme Armstrong MD at [facility] OR ? ? PRO DEBRIDEMENT MUSCLE AND FASCIA 20 SQ CM/< Left 02/22/2022 DEBRIDEMENT SKIN, SUBCU, MUSCLE, LOWER EXTREMITY (WRVU 2.7) performed by Parrish Betancourt MD at [facility] OR ? ? PRO DEBRIDEMENT MUSCLE AND FASCIA 20 SQ CM/< Left 02/24/2022 DEBRIDEMENT SKIN, SUBCU, MUSCLE, LOWER EXTREMITY (WRVU 2.7) performed by Parrish Betancourt MD at [facility] OR ? ? PRO DEBRIDEMENT MUSCLE AND FASCIA 20 SQ CM/< Left 02/26/2022 DEBRIDEMENT SKIN, SUBCU, MUSCLE, UPPER EXTREMITY (WRVU 2.7) performed by Parrish Betancourt MD at [facility] OR ? ? PRO DEBRIDEMENT SUBCUTANEOUS TISSUE 20 SQCM/< Left 02/04/2022 DEBRIDEMENT SKIN AND SUBCU, UPPER EXTREMITY (WRVU 1.01) performed [facility] ? ? PRO DEBRIDEMENT SUBCUTANEOUS TISSUE 20 SQCM/< Left 02/08/2022 DEBRIDEMENT SKIN AND SUBCU, LOWER EXTREMITY (WRVU 1.01) performed by Jeanette Chatterjee MD at [facility] OR ? ? PRO DEBRIDEMENT SUBCUTANEOUS TISSUE 20 SQCM/< Left 02/09/2022 DEBRIDEMENT SKIN AND SUBCU, LOWER EXTREMITY (WRVU 1.01) performed by Jeanette Chatterjee MD at [facility] OR ? ? PRO DEBRIDEMENT SUBCUTANEOUS TISSUE 20 SQCM/< Left 02/11/2022 DEBRIDEMENT SKIN AND SUBCU, LOWER EXTREMITY (WRVU 1.01) performed by Prarish Betancourt MD at [facility] OR ? ? PRO DEBRIDEMENT SUBCUTANEOUS TISSUE 20 SQCM/< Left 02/13/2022 DEBRIDEMENT SKIN AND SUBCU, LOWER EXTREMITY (WRVU 1.01) performed by Jeanette Chatterjee MD at [facility] OR ? ? PRO DEBRIDEMENT SUBCUTANEOUS TISSUE 20 SQCM/< Left 02/15/2022 DEBRIDEMENT SKIN AND SUBCU, LOWER EXTREMITY (WRVU 1.01) performed by Jayme Armstrong MD at [facility] OR ? ? PRO DEBRIDEMENT SUBCUTANEOUS TISSUE 20 SQCM/< Left 02/17/2022 DEBRIDEMENT SKIN AND SUBCU, LOWER EXTREMITY (WRVU 1.01) performed by Jayme Armstrong MD at [facility] OR ??? PRO DECOMP FOREARM, 2 COMPART, W/O DEBRIDE Left 01/23/2022 FASCIOTOMY; FOREARM AND\OR WRIST, FLEXOR & EXTENS. COMP (WRVU 10.79) performed by Sigifredo Garcia MD at [facility] OR ??? PRO DECOMPRESS ANT/LAT+POST LEG CMPART Left 01/23/2022 FASCIOTOMY, LOWER LEG, ALL COMPARTMENTS (WRVU 7.82) performed by Sigifredo Garcia MD at [facility] OR ??? PRO DRESSING CHANGE UNDER ANESTHESIA Left 02/11/2022 DRESSING CHANGE (FOR OTHER THAN GALLOWAY) UNDER ANES., UPPER EXTREMITY (WRVU 0.86) performed by Parrish Betancourt MD at [facility] OR ??? PRO DRESSING CHANGE UNDER ANESTHESIA Left 02/13/2022 DRESSING CHANGE (FOR OTHER THAN GALLOWAY) UNDER ANES., UPPER EXTREMITY (WRVU 0.86) performed by Jeanette Chatterjee MD at [facility] OR ??? PRO DRESSING CHANGE UNDER ANESTHESIA Left 02/17/2022 DRESSING CHANGE (FOR OTHER THAN GALLOWAY) UNDER ANES., UPPER EXTREMITY (WRVU 0.86) performed by Jayme Armstrong MD at [facility] OR ??? PRO DRESSING CHANGE UNDER ANESTHESIA Left 02/19/2022 DRESSING CHANGE (FOR OTHER THAN GALLOWAY) UNDER ANES., UPPER EXTREMITY (WRVU 0.86) performed by Jayme Armstrong MD at [facility] OR ??? PRO DRESSING CHANGE UNDER ANESTHESIA Left 02/22/2022 DRESSING CHANGE (FOR OTHER THAN GALLOWAY) UNDER ANES., UPPER EXTREMITY (WRVU 0.86) performed by Parrish Betancourt MD at [facility] OR ??? PRO DRESSING CHANGE UNDER ANESTHESIA Left 02/24/2022 DRESSING CHANGE (FOR OTHER THAN GALLOWAY) UNDER ANES., UPPER EXTREMITY (WRVU 0.86) performed by Parrish Betancourt MD at [facility] OR ??? PRO DRESSING CHANGE UNDER ANESTHESIA Left 02/26/2022 DRESSING CHANGE (FOR OTHER THAN GALLOWAY) UNDER ANES., LOWER EXTREMITY (WRVU 0.86) performed by Parrish Betancourt MD at [facility] OR ??? PRO DRESSING CHANGE UNDER ANESTHESIA Left 02/26/2022 DRESSING CHANGE (FOR OTHER THAN GALLOWAY) UNDER ANES., UPPER EXTREMITY (WRVU 0.86) performed by Parrish Betancourt MD at [facility] OR ??? PRO DRESSING CHANGE UNDER ANESTHESIA Left 03/01/2022 DRESSING CHANGE (FOR OTHER THAN GALLOWAY) UNDER ANES., LOWER EXTREMITY (WRVU 0.86) performed by Willie Sanabria MD at [facility] OR ??? PRO DRESSING CHANGE UNDER ANESTHESIA N/A 03/01/2022 DRESSING CHANGE (FOR OTHER THAN GALLOWAY) UNDER ANES., UPPER EXTREMITY (WRVU 0.86) performed by Willie Sanabria MD at [facility] OR ? ? PRO I&D DEEP ABSCESS BURSA/HEMATOMA THIGH/KNEE REGION Left 02/06/2022 INCISION & DRAINAGE ABSCESS OR HEMATOMA, THIGH, KNEE SUPERFICIAL (WRVU 6.78) performed by Jayme Armstrong MD at [facility] OR ??? PRO INCIS OF HIP/THIGH FASCIA Left 01/23/2022 @FASCIOTOMY,THIGH OR HIP FOR COMPARTMENT SYNDROME (WRVU 12.89) performed by Sigifredo Garcia MD at [facility] OR ??? PRO NEGATIVE PRESSURE WOUND THERAPY, LESS THAN OR EQUAL TO 50 SQCM Left 02/05/2022 DRESSING CHANGE (VAC ASSISTED) UP TO 50SQ.CM (WRVU 0.55) performed by Orville Hennessy MD at [facility] OR ??? PRO NEGATIVE PRESSURE WOUND THERAPY, LESS THAN OR EQUAL TO 50 SQCM Left 02/05/2022 DRESSING CHANGE (VAC ASSISTED) UP TO 50SQ.CM (WRVU 0.55) performed by Tom Valdovinos MD at [facility] MAIN OR ??? PRO NEGATIVE PRESSURE WOUND THERAPY, LESS THAN OR EQUAL TO 50 SQCM Left 02/08/2022 DRESSING CHANGE (VAC ASSISTED) UP TO 50SQ.CM (WRVU 0.55) performed by Jeanette Chatterjee MD at [facility] MAIN OR ??? PRO NEGATIVE PRESSURE WOUND THERAPY, LESS THAN OR EQUAL TO 50 SQCM Left 03/03/2022 DRESSING CHANGE (VAC ASSISTED) UP TO 50SQ.CM (WRVU 0.55) performed by Willie Sanabria MD at [facility] MAIN OR ??? PRO OPEN TREAT MANDIBLE CONDYLE FX, COMPL 04/27/2013 OPEN TREATMENT, COMPLEX MANDIBLE FX., MULTI APPROACH, W/ FIXATION performed by Kishore Neil MD at [facility] OR ??? PRO REVISE MEDIAN N/CARPAL TUNNEL SURG Left 01/23/2022 MEDIAN NERVE DECOMPRESSION (CARPAL TUNNEL RELEASE) (WRVU 4.97) performed by Sigifredo Garcia MD at [facility] MAIN OR ??? PRO SEC CLSR SURG WOUND/DEHSN EXTENSIVE/COMPLICATED Left 01/26/2022 SECONDARY CLOSURE SURGICAL WOUND OR DEHISCENCE, EXTENSIVE OR COMPLICATED, UPPER EXTREMITY (WRVU 12.04) performed by Sigifredo Garcia MD at [facility] MAIN OR Current Facility-Administered Medications: ??? 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 ? [...] Arteriogram Lower Extremity 02/06/2022 Nicole Vivas MD [facility] INTERVENTIONL RAD ??? PRO DEBRIDEMENT BONE EA ADDL 20 SQCM 02/08/2022 EACH ADDITIONAL 20 SQ CM, OR PART THEREOF (WRVU 1.8) performed by Jeanette Chatterjee MD at [facility]E ? ? PRO DEBRIDEMENT [...] 4.1) performed by Jose Branch MD at [facility] MAIN OR ? ? PRO DEBRIDEMENT BONE MUSCLE &/FASCIA 20 SQ CM/< Left 01/31/2022 DEBRIDEMENT SKIN, SUBCU, MUSCLE, BONE UPPER EXTREMITY (WRVU 4.1) performed by Jose Branch MDat [facility] MAIN OR ? ? PRO DEBRIDEMENT BONE MUSCLE &/FASCIA 20 SQ CM/< Left 02/02/2022 DEBRIDEMENT SKIN, SUBCU, MUSCLE, BONE UPPER EXTREMITY (WRVU 4.1) performed by Hina Starks MD at [facility] MAIN OR ? ? PRO DEBRIDEMENT BONE MUSCLE &/FASCIA 20 SQ CM/< Left 02/02/2022 DEBRIDEMENT SKIN, SUBCU, MUSCLE, BONE, LOWER EXTREMITY (WRVU 4.1) performed by Hina Starks MD at [facility] OR ? ? PRO DEBRIDEMENT MUSCLE AND FASCIA 20 SQ CM/< Left 01/26/2022 DEBRIDEMENT SKIN, SUBCU, MUSCLE, LOWER EXTREMITY (WRVU 2.7) performed by Sigifredo Garcia MD at [facility] MAIN OR ? ? PRO DEBRIDEMENT MUSCLE AND FASCIA 20 SQ CM/< Left 01/26/2022 DEBRIDEMENT SKIN, SUBCU, MUSCLE, UPPER EXTREMITY (WRVU 2.7) performed by Sigifredo Garcia MD at [facility] OR ? ? PRO DEBRIDEMENT MUSCLE AND FASCIA 20 SQ CM/< Left 02/05/2022 DEBRIDEMENT SKIN, SUBCU, MUSCLE, LOWER EXTREMITY (WRVU 2.7) performed by Tom Valdovinos MD at [facility] OR ? ? PRO DEBRIDEMENT MUSCLE AND FASCIA 20 SQ CM/< Left 02/04/2022 DEBRIDEMENT SKIN, SUBCU, MUSCLE, LOWER EXTREMITY (WRVU 2.7) performed by Sigifredo Garcia MD at [facility] MAIN OR ? ? PRO DEBRIDEMENT MUSCLE AND FASCIA 20 SQ CM/< Left 02/15/2022 DEBRIDEMENT SKIN, SUBCU, MUSCLE, UPPER EXTREMITY (WRVU 2.7) performed by Jayme Armstrong MD at [facility] OR ? ? PRO DEBRIDEMENT MUSCLE AND FASCIA 20 SQ CM/< Left 02/19/2022 DEBRIDEMENT SKIN, SUBCU, MUSCLE, LOWER EXTREMITY (WRVU 2.7) performed by Jayme Armstrong MD at [facility] OR ? ? PRO DEBRIDEMENT MUSCLE AND FASCIA 20 SQ CM/< Left 02/22/2022 DEBRIDEMENT SKIN, SUBCU, MUSCLE, LOWER EXTREMITY (WRVU 2.7) performed by Parrish Betancourt MD at [facility] OR ? ? PRO DEBRIDEMENT MUSCLE AND FASCIA 20 SQ CM/< Left 02/24/2022 DEBRIDEMENT SKIN, SUBCU, MUSCLE, LOWER EXTREMITY (WRVU 2.7) performed by Parrish Betancourt MD at [facility] OR ? ? PRO DEBRIDEMENT MUSCLE AND FASCIA 20 SQ CM/< Left 02/26/2022 DEBRIDEMENT SKIN, SUBCU, MUSCLE, UPPER EXTREMITY (WRVU 2.7) performed by Parrish Betancourt MD at [facility] OR ? ? PRO DEBRIDEMENT SUBCUTANEOUS TISSUE 20 SQCM/< Left 02/04/2022 DEBRIDEMENT SKIN AND SUBCU, UPPER EXTREMITY (WRVU 1.01) performed [facility] ? ? PRO DEBRIDEMENT SUBCUTANEOUS TISSUE 20 SQCM/< Left 02/08/2022 DEBRIDEMENT SKIN AND SUBCU, LOWER EXTREMITY (WRVU 1.01) performed by Jeanette Chatterjee MD at [facility] OR ? ? PRO DEBRIDEMENT SUBCUTANEOUS TISSUE 20 SQCM/< Left 02/09/2022 DEBRIDEMENT SKIN AND SUBCU, LOWER EXTREMITY (WRVU 1.01) performed by Jeanette Chatterjee MD at [facility] OR ? ? PRO DEBRIDEMENT SUBCUTANEOUS TISSUE 20 SQCM/< Left 02/11/2022 DEBRIDEMENT SKIN AND SUBCU, LOWER EXTREMITY (WRVU 1.01) performed by Parrish Betancourt MD at [facility] OR ? ? PRO DEBRIDEMENT SUBCUTANEOUS TISSUE 20 SQCM/< Left 02/13/2022 DEBRIDEMENT SKIN AND SUBCU, LOWER EXTREMITY (WRVU 1.01) performed by Jeanette Chatterjee MD at [facility] MAIN OR ? ? PRO DEBRIDEMENT SUBCUTANEOUS TISSUE 20 SQCM/< Left 02/15/2022 DEBRIDEMENT SKIN AND SUBCU, LOWER EXTREMITY (WRVU 1.01) performed by Jayme Armstrong MD at [facility] OR ? ? PRO DEBRIDEMENT SUBCUTANEOUS TISSUE 20 SQCM/< Left 02/17/2022 DEBRIDEMENT SKIN AND SUBCU, LOWER EXTREMITY (WRVU 1.01) performed by Jayme Armstrong MD at [facility] OR ??? PRO DECOMP FOREARM, 2 COMPART, W/O DEBRIDE Left 01/23/2022 FASCIOTOMY; FOREARM AND\OR WRIST, FLEXOR & EXTENS. COMP (WRVU 10.79) performed by Sigifredo Garcia MD at [facility] OR ??? PRO DECOMPRESS ANT/LAT+POST LEG CMPART Left 01/23/2022 FASCIOTOMY, LOWER LEG, ALL COMPARTMENTS (WRVU 7.82) performed by Sigifredo Garcia MD at [facility] OR ??? PRO DRESSING CHANGE UNDER ANESTHESIA Left 02/11/2022 DRESSING CHANGE (FOR OTHER THAN GALLOWAY) UNDER ANES., UPPER EXTREMITY (WRVU 0.86) performed by Parrish Betancourt MD at [facility] OR ??? PRO DRESSING CHANGE UNDER ANESTHESIA Left 02/13/2022 DRESSING CHANGE (FOR OTHER THAN GALLOWAY) UNDER ANES., UPPER EXTREMITY (WRVU 0.86) performed by Jeanette Chatterjee MD at [facility] OR ??? PRO DRESSING CHANGE UNDER ANESTHESIA Left 02/17/2022 DRESSING CHANGE (FOR OTHER THAN GALLOWAY) UNDER ANES., UPPER EXTREMITY (WRVU 0.86) performed by Jayme Armstrong MD at [facility] OR ??? PRO DRESSING CHANGE UNDER ANESTHESIA Left 02/19/2022 DRESSING CHANGE (FOR OTHER THAN GALLOWAY) UNDER ANES., UPPER EXTREMITY (WRVU 0.86) performed by Jayme Armstrong MD at [facility] OR ??? PRO DRESSING CHANGE UNDER ANESTHESIA Left 02/22/2022 DRESSING CHANGE (FOR OTHER THAN GALLOWAY) UNDER ANES., UPPER EXTREMITY (WRVU 0.86) performed by Parrish Betancourt MD at [facility] OR ??? PRO DRESSING CHANGE UNDER ANESTHESIA Left 02/24/2022 DRESSING CHANGE (FOR OTHER THAN GALLOWAY) UNDER ANES., UPPER EXTREMITY (WRVU 0.86) performed by Parrish Betancourt MD at [facility] OR ??? PRO DRESSING CHANGE UNDER ANESTHESIA Left 02/26/2022 DRESSING CHANGE (FOR OTHER THAN GALLOWAY) UNDER ANES., LOWER EXTREMITY (WRVU 0.86) performed by Parrish Betancourt MD at [facility] OR ??? PRO DRESSING CHANGE UNDER ANESTHESIA Left 02/26/2022 DRESSING CHANGE (FOR OTHER THAN GALLOWAY) UNDER ANES., UPPER EXTREMITY (WRVU 0.86) performed by Parrish Betancourt MD at [facility] OR ??? PRO DRESSING CHANGE UNDER ANESTHESIA Left 03/01/2022 DRESSING CHANGE (FOR OTHER THAN GALLOWAY) UNDER ANES., LOWER EXTREMITY (WRVU 0.86) performed by Willie Sanabria MD at [facility] OR ??? PRO DRESSING CHANGE UNDER ANESTHESIA N/A 03/01/2022 DRESSING CHANGE (FOR OTHER THAN GALLOWAY) UNDER ANES., UPPER EXTREMITY (WRVU 0.86) performed by Willie Sanabria MD at [facility] OR ? ? PRO I&D DEEP ABSCESS BURSA/HEMATOMA THIGH/KNEE REGION Left 02/06/2022 INCISION & DRAINAGE ABSCESS OR HEMATOMA, THIGH, KNEE SUPERFICIAL (WRVU 6.78) performed by Jayme Armstrong MD at [facility] OR ??? PRO INCIS OF HIP/THIGH FASCIA Left 01/23/2022 @FASCIOTOMY,THIGH OR HIP FOR COMPARTMENT SYNDROME (WRVU 12.89) performed by Sigifredo Garcia MD at [facility] OR ??? PRO NEGATIVE PRESSURE WOUND THERAPY, LESS THAN OR EQUAL TO 50 SQCM Left 02/05/2022 DRESSING CHANGE (VAC ASSISTED) UP TO 50SQ.CM (WRVU 0.55) performed by Orville Hennessy MD at [facility] OR ??? PRO NEGATIVE PRESSURE WOUND THERAPY, LESS THAN OR EQUAL TO 50 SQCM Left 02/05/2022 DRESSING CHANGE (VAC ASSISTED) UP TO 50SQ.CM (WRVU 0.55) performed by Tom Valdovinos MD at [facility] OR ??? PRO NEGATIVE PRESSURE WOUND THERAPY, LESS THAN OR EQUAL TO 50 SQCM Left 02/08/2022 DRESSING CHANGE (VAC ASSISTED) UP TO 50SQ.CM (WRVU 0.55) performed by Jeanette Chatterjee MD at [facility] MAIN OR ??? PRO OPEN TREAT MANDIBLE CONDYLE FX, COMPL 04/27/2013 OPEN TREATMENT, COMPLEX MANDIBLE FX., MULTI APPROACH, W/ FIXATION performed by Kishore Neil MD at [facility] MAIN OR ??? PRO REVISE MEDIAN N/CARPAL TUNNEL SURG Left 01/23/2022 MEDIAN NERVE DECOMPRESSION (CARPAL TUNNEL RELEASE) (WRVU 4.97) performed by Sigifredo Garcia MD at [facility] MAIN OR ??? PRO SEC CLSR SURG WOUND/DEHSN EXTENSIVE/COMPLICATED Left 01/26/2022 SECONDARY CLOSURE SURGICAL WOUND OR DEHISCENCE, EXTENSIVE OR COMPLICATED, UPPER EXTREMITY (WRVU 12.04) performed by iSgifredo Garcia MD at [facility] MAIN OR MEDICATIONS: No current facility-administered medications [...] Jenkins MD - 03/01/2022 5:58 AM EDT [facility] Acute Care Surgery H&P HPI and hospital [...] Arteriogram Lower Extremity 02/06/2022 Nicole Vivas MD [facility] INTERVENTIONL RAD ??? PRO DEBRIDEMENT BONE EA ADDL 20 SQCM 02/08/2022 EACH ADDITIONAL 20 SQ CM, OR PART THEREOF (WRVU 1.8) performed by Jeanette Chatterjee MD at [facility] ? ? PRO DEBRIDEMENT [...] 4.1) performed by Jose Branch MD at [facility] MAIN OR ? ? PRO DEBRIDEMENT BONE MUSCLE &/FASCIA 20 SQ CM/< Left 01/31/2022 DEBRIDEMENT SKIN, SUBCU, MUSCLE, BONE UPPER EXTREMITY (WRVU 4.1) performed by Jose Branch MDat [facility] MAIN OR ? ? PRO DEBRIDEMENT BONE MUSCLE &/FASCIA 20 SQ CM/< Left 02/02/2022 DEBRIDEMENT SKIN, SUBCU, MUSCLE, BONE UPPER EXTREMITY (WRVU 4.1) performed by Hina Starks MD at [facility] MAIN OR ? ? PRO DEBRIDEMENT BONE MUSCLE &/FASCIA 20 SQ CM/< Left 02/02/2022 DEBRIDEMENT SKIN, SUBCU, MUSCLE, BONE, LOWER EXTREMITY (WRVU 4.1) performed by Hina Starks MD at [facility] MAIN OR ? ? PRO DEBRIDEMENT MUSCLE AND FASCIA 20 SQ CM/< Left 01/26/2022 DEBRIDEMENT SKIN, SUBCU, MUSCLE, LOWER EXTREMITY (WRVU 2.7) performed by Sigifredo Garcia MD at [facility] OR ? ? PRO DEBRIDEMENT MUSCLE AND FASCIA 20 SQ CM/< Left 01/26/2022 DEBRIDEMENT SKIN, SUBCU, MUSCLE, UPPER EXTREMITY (WRVU 2.7) performed by Sigifredo Garcia MD at [facility] OR ? ? PRO DEBRIDEMENT MUSCLE AND FASCIA 20 SQ CM/< Left 02/05/2022 DEBRIDEMENT SKIN, SUBCU, MUSCLE, LOWER EXTREMITY (WRVU 2.7) performed by Tom Valdovinos MD at [facility] OR ? ? PRO DEBRIDEMENT MUSCLE AND FASCIA 20 SQ CM/< Left 02/04/2022 DEBRIDEMENT SKIN, SUBCU, MUSCLE, LOWER EXTREMITY (WRVU 2.7) performed by Sigifredo Garcia MD at [facility] OR ? ? PRO DEBRIDEMENT MUSCLE AND FASCIA 20 SQ CM/< Left 02/15/2022 DEBRIDEMENT SKIN, SUBCU, MUSCLE, UPPER EXTREMITY (WRVU 2.7) performed by Jayme Armstrong MD at [facility] OR ? ? PRO DEBRIDEMENT MUSCLE AND FASCIA 20 SQ CM/< Left 02/19/2022 DEBRIDEMENT SKIN, SUBCU, MUSCLE, LOWER EXTREMITY (WRVU 2.7) performed by Jayme Armstrong MD at [facility] OR ? ? PRO DEBRIDEMENT MUSCLE AND FASCIA 20 SQ CM/< Left 02/22/2022 DEBRIDEMENT SKIN, SUBCU, MUSCLE, LOWER EXTREMITY (WRVU 2.7) performed by Parrish Betancourt MD at [facility] OR ? ? PRO DEBRIDEMENT MUSCLE AND FASCIA 20 SQ CM/< Left 02/24/2022 DEBRIDEMENT SKIN, SUBCU, MUSCLE, LOWER EXTREMITY (WRVU 2.7) performed by Parrish Betancourt MD at [facility] OR ? ? PRO DEBRIDEMENT MUSCLE AND FASCIA 20 SQ CM/< Left 02/26/2022 DEBRIDEMENT SKIN, SUBCU, MUSCLE, UPPER EXTREMITY (WRVU 2.7) performed by Parrish Betancourt MD at [facility] OR ? ? PRO DEBRIDEMENT SUBCUTANEOUS TISSUE 20 SQCM/< Left 02/04/2022 DEBRIDEMENT SKIN AND SUBCU, UPPER EXTREMITY (WRVU 1.01) performed [facility] ? ? PRO DEBRIDEMENT SUBCUTANEOUS TISSUE 20 SQCM/< Left 02/08/2022 DEBRIDEMENT SKIN AND SUBCU, LOWER EXTREMITY (WRVU 1.01) performed by Jeanette Chatterjee MD at [facility] OR ? ? PRO DEBRIDEMENT SUBCUTANEOUS TISSUE 20 SQCM/< Left 02/09/2022 DEBRIDEMENT SKIN AND SUBCU, LOWER EXTREMITY (WRVU 1.01) performed by Jeanette Chatterjee MD at [facility] OR ? ? PRO DEBRIDEMENT SUBCUTANEOUS TISSUE 20 SQCM/< Left 02/11/2022 DEBRIDEMENT SKIN AND SUBCU, LOWER EXTREMITY (WRVU 1.01) performed by Parrish Betancourt MD at [facility] OR ? ? PRO DEBRIDEMENT SUBCUTANEOUS TISSUE 20 SQCM/< Left 02/13/2022 DEBRIDEMENT SKIN AND SUBCU, LOWER EXTREMITY (WRVU 1.01) performed by Jeanette Chatterjee MD at [facility] OR ? ? PRO DEBRIDEMENT SUBCUTANEOUS TISSUE 20 SQCM/< Left 02/15/2022 DEBRIDEMENT SKIN AND SUBCU, LOWER EXTREMITY (WRVU 1.01) performed by Jayme Armstrong MD at [facility] OR ? ? PRO DEBRIDEMENT SUBCUTANEOUS TISSUE 20 SQCM/< Left 02/17/2022 DEBRIDEMENT SKIN AND SUBCU, LOWER EXTREMITY (WRVU 1.01) performed by Jayme Armstrong MD at [facility] OR ??? PRO DECOMP FOREARM, 2 COMPART, W/O DEBRIDE Left 01/23/2022 FASCIOTOMY; FOREARM AND\OR WRIST, FLEXOR & EXTENS. COMP (WRVU 10.79) performed by Sigifredo Garcia MD at [facility] OR ??? PRO DECOMPRESS ANT/LAT+POST LEG CMPART Left 01/23/2022 FASCIOTOMY, LOWER LEG, ALL COMPARTMENTS (WRVU 7.82) performed by Sigifredo Garcia MD at [facility] OR ??? PRO DRESSING CHANGE UNDER ANESTHESIA Left 02/11/2022 DRESSING CHANGE (FOR OTHER THAN GALLOWAY) UNDER ANES., UPPER EXTREMITY (WRVU 0.86) performed by Parrish Betancourt MD at [facility] OR ??? PRO DRESSING CHANGE UNDER ANESTHESIA Left 02/13/2022 DRESSING CHANGE (FOR OTHER THAN GALLOWAY) UNDER ANES., UPPER EXTREMITY (WRVU 0.86) performed by Jeanette Chatterjee MD at [facility] OR ??? PRO DRESSING CHANGE UNDER ANESTHESIA Left 02/17/2022 DRESSING CHANGE (FOR OTHER THAN GALLOWAY) UNDER ANES., UPPER EXTREMITY (WRVU 0.86) performed by Jayme Armstrong MD at [facility] OR ??? PRO DRESSING CHANGE UNDER ANESTHESIA Left 02/19/2022 DRESSING CHANGE (FOR OTHER THAN GALLOWAY) UNDER ANES., UPPER EXTREMITY (WRVU 0.86) performed by Jayme Armstrong MD at [facility] OR ??? PRO DRESSING CHANGE UNDER ANESTHESIA Left 02/22/2022 DRESSING CHANGE (FOR OTHER THAN GALLOWAY) UNDER ANES., UPPER EXTREMITY (WRVU 0.86) performed by Parrish Betancourt MD at [facility] OR ??? PRO DRESSING CHANGE UNDER ANESTHESIA Left 02/24/2022 DRESSING CHANGE (FOR OTHER THAN GALLOWAY) UNDER ANES., UPPER EXTREMITY (WRVU 0.86) performed by Parrish Betancourt MD at [facility] OR ??? PRO DRESSING CHANGE UNDER ANESTHESIA Left 02/26/2022 DRESSING CHANGE (FOR OTHER THAN GALLOWAY) UNDER ANES., LOWER EXTREMITY (WRVU 0.86) performed by Parrish Betancourt MD at [facility] OR ??? PRO DRESSING CHANGE UNDER ANESTHESIA Left 02/26/2022 DRESSING CHANGE (FOR OTHER THAN GALLOWAY) UNDER ANES., UPPER EXTREMITY (WRVU 0.86) performed by Parrish Betancourt MD at [facility] OR ? ? PRO I&D DEEP ABSCESS BURSA/HEMATOMA THIGH/KNEE REGION Left 02/06/2022 INCISION & DRAINAGE ABSCESS OR HEMATOMA, THIGH, KNEE SUPERFICIAL (WRVU 6.78) performed by Jayme Armstrong MD at [facility] OR ??? PRO INCIS OF HIP/THIGH FASCIA Left 01/23/2022 @FASCIOTOMY,THIGH OR HIP FOR COMPARTMENT SYNDROME (WRVU 12.89) performed by Sigifredo Garcia MD at [facility] OR ??? PRO NEGATIVE PRESSURE WOUND THERAPY, LESS THAN OR EQUAL TO 50 SQCM Left 02/05/2022 DRESSING CHANGE (VAC ASSISTED) UP TO 50SQ.CM (WRVU 0.55) performed by Orville Hennessy MD at [facility] MAIN OR ??? PRO NEGATIVE PRESSURE WOUND THERAPY, LESS THAN OR EQUAL TO 50 SQCM Left 02/05/2022 DRESSING CHANGE (VAC ASSISTED) UP TO 50SQ.CM (WRVU 0.55) performed by Tom Valdovinos MD at [facility] MAIN OR ??? PRO NEGATIVE PRESSURE WOUND THERAPY, LESS THAN OR EQUAL TO 50 SQCM Left 02/08/2022 DRESSING CHANGE (VAC ASSISTED) UP TO 50SQ.CM (WRVU 0.55) performed by Jeanette Chatterjee MD at [facility] MAIN OR ??? PRO OPEN TREAT MANDIBLE CONDYLE FX, COMPL 04/27/2013 OPEN TREATMENT, COMPLEX MANDIBLE FX., MULTI APPROACH, W/ FIXATION performed by Kishore Neil MD at [facility] OR ??? PRO REVISE MEDIAN N/CARPAL TUNNEL SURG Left 01/23/2022 MEDIAN NERVE DECOMPRESSION (CARPAL TUNNEL RELEASE) (WRVU 4.97) performed by Sigifredo Garcia MD at [facility] MAIN OR ??? PRO SEC CLSR SURG WOUND/DEHSN EXTENSIVE/COMPLICATED Left 01/26/2022 SECONDARY CLOSURE SURGICAL WOUND OR DEHISCENCE, EXTENSIVE OR COMPLICATED, UPPER EXTREMITY (WRVU 12.04) performed by Sigifredo Garcia MD at [facility] MAIN OR MEDICATIONS: No current facility-administered medications [...] date: 01/23/2022 Attending Physician: Allison Kelly MD [facility] General Surgery History and Physical Alix Holland [...] Arteriogram Lower Extremity 02/06/2022 Nicole Vivas MD [facility] INTERVENTIONL RAD ??? PRO DEBRIDEMENT BONE EA ADDL 20 SQCM 02/08/2022 EACH ADDITIONAL 20 SQ CM, OR PART THEREOF (WRVU 1.8) performed by Jeanette Chatterjee MD at [facility] ? ? PRO DEBRIDEMENT [...] 4.1) performed by Jose Branch MD at [facility] MAIN OR ? ? PRO DEBRIDEMENT BONE MUSCLE &/FASCIA 20 SQ CM/< Left 01/31/2022 DEBRIDEMENT SKIN, SUBCU, MUSCLE, BONE UPPER EXTREMITY (WRVU 4.1) performed by Jose Branch MDat [facility] MAIN OR ? ? PRO DEBRIDEMENT BONE MUSCLE &/FASCIA 20 SQ CM/< Left 02/02/2022 DEBRIDEMENT SKIN, SUBCU, MUSCLE, BONE UPPER EXTREMITY (WRVU 4.1) performed by Hina Starks MD at [facility] OR ? ? PRO DEBRIDEMENT BONE MUSCLE &/FASCIA 20 SQ CM/< Left 02/02/2022 DEBRIDEMENT SKIN, SUBCU, MUSCLE, BONE, LOWER EXTREMITY (WRVU 4.1) performed by Hina Starks MD at [facility] OR ? ? PRO DEBRIDEMENT MUSCLE AND FASCIA 20 SQ CM/< Left 01/26/2022 DEBRIDEMENT SKIN, SUBCU, MUSCLE, LOWER EXTREMITY (WRVU 2.7) performed by Sigifredo Garcia MD at [facility] OR ? ? PRO DEBRIDEMENT MUSCLE AND FASCIA 20 SQ CM/< Left 01/26/2022 DEBRIDEMENT SKIN, SUBCU, MUSCLE, UPPER EXTREMITY (WRVU 2.7) performed by Sigifredo Garcia MD at [facility] MAIN OR ? ? PRO DEBRIDEMENT MUSCLE AND FASCIA 20 SQ CM/< Left 02/05/2022 DEBRIDEMENT SKIN, SUBCU, MUSCLE, LOWER EXTREMITY (WRVU 2.7) performed by Tom Valdovinos MD at [facility] OR ? ? PRO DEBRIDEMENT MUSCLE AND FASCIA 20 SQ CM/< Left 02/04/2022 DEBRIDEMENT SKIN, SUBCU, MUSCLE, LOWER EXTREMITY (WRVU 2.7) performed by Sigifredo Garcia MD at [facility] MAIN OR ? ? PRO DEBRIDEMENT MUSCLE AND FASCIA 20 SQ CM/< Left 02/15/2022 DEBRIDEMENT SKIN, SUBCU, MUSCLE, UPPER EXTREMITY (WRVU 2.7) performed by Jayme Armstrong MD at [facility] OR ? ? PRO DEBRIDEMENT MUSCLE AND FASCIA 20 SQ CM/< Left 02/19/2022 DEBRIDEMENT SKIN, SUBCU, MUSCLE, LOWER EXTREMITY (WRVU 2.7) performed by Jayme Armstrong MD at [facility] OR ? ? PRO DEBRIDEMENT MUSCLE AND FASCIA 20 SQ CM/< Left 02/22/2022 DEBRIDEMENT SKIN, SUBCU, MUSCLE, LOWER EXTREMITY (WRVU 2.7) performed by Parrish Betancourt MD at [facility] OR ? ? PRO DEBRIDEMENT MUSCLE AND FASCIA 20 SQ CM/< Left 02/24/2022 DEBRIDEMENT SKIN, SUBCU, MUSCLE, LOWER EXTREMITY (WRVU 2.7) performed by Parrish Betancourt MD at [facility] OR ? ? PRO DEBRIDEMENT SUBCUTANEOUS TISSUE 20 SQCM/< Left 02/04/2022 DEBRIDEMENT SKIN AND SUBCU, UPPER EXTREMITY (WRVU 1.01) performed [facility] ? ? PRO DEBRIDEMENT SUBCUTANEOUS TISSUE 20 SQCM/< Left 02/08/2022 DEBRIDEMENT SKIN AND SUBCU, LOWER EXTREMITY (WRVU 1.01) performed by Jeanette Chatterjee MD at [facility] OR ? ? PRO DEBRIDEMENT SUBCUTANEOUS TISSUE 20 SQCM/< Left 02/09/2022 DEBRIDEMENT SKIN AND SUBCU, LOWER EXTREMITY (WRVU 1.01) performed by Jeanette Chatterjee MD at [facility] OR ? ? PRO DEBRIDEMENT SUBCUTANEOUS TISSUE 20 SQCM/< Left 02/11/2022 DEBRIDEMENT SKIN AND SUBCU, LOWER EXTREMITY (WRVU 1.01) performed by Parrish Betancourt MD at [facility] OR ? ? PRO DEBRIDEMENT SUBCUTANEOUS TISSUE 20 SQCM/< Left 02/13/2022 DEBRIDEMENT SKIN AND SUBCU, LOWER EXTREMITY (WRVU 1.01) performed by Jeanette Chatterjee MD at [facility] OR ? ? PRO DEBRIDEMENT SUBCUTANEOUS TISSUE 20 SQCM/< Left 02/15/2022 DEBRIDEMENT SKIN AND SUBCU, LOWER EXTREMITY (WRVU 1.01) performed by Jayme Armstrong MD at [facility] OR ? ? PRO DEBRIDEMENT SUBCUTANEOUS TISSUE 20 SQCM/< Left 02/17/2022 DEBRIDEMENT SKIN AND SUBCU, LOWER EXTREMITY (WRVU 1.01) [facility] ??? PRO DECOMP FOREARM, 2 COMPART, W/O DEBRIDE Left 01/23/2022 FASCIOTOMY; FOREARM AND\OR WRIST, FLEXOR & EXTENS. COMP (WRVU 10.79) performed by Sigifredo Garcia MD at [facility] OR ??? PRO DECOMPRESS ANT/LAT+POST LEG CMPART Left 01/23/2022 FASCIOTOMY, LOWER LEG, ALL COMPARTMENTS (WRVU 7.82) performed by Sigifredo Garcia MD at [facility] OR ??? PRO DRESSING CHANGE UNDER ANESTHESIA Left 02/11/2022 DRESSING CHANGE (FOR OTHER THAN GALLOWAY) UNDER ANES., UPPER EXTREMITY (WRVU 0.86) performed by Parrish Betancourt MD at [facility] OR ??? PRO DRESSING CHANGE UNDER ANESTHESIA Left 02/13/2022 DRESSING CHANGE (FOR OTHER THAN GALLOWAY) UNDER ANES., UPPER EXTREMITY (WRVU 0.86) performed by Jeanette Chatterjee MD at [facility] OR ??? PRO DRESSING CHANGE UNDER ANESTHESIA Left 02/17/2022 DRESSING CHANGE (FOR OTHER THAN GALLOWAY) UNDER ANES., UPPER EXTREMITY (WRVU 0.86) performed by Jayme Armstrong MD at [facility] OR ??? PRO DRESSING CHANGE UNDER ANESTHESIA Left 02/19/2022 DRESSING CHANGE (FOR OTHER THAN GALLOWAY) UNDER ANES., UPPER EXTREMITY (WRVU 0.86) performed by Jayme Armstrong MD at [facility] OR ??? PRO DRESSING CHANGE UNDER ANESTHESIA Left 02/22/2022 DRESSING CHANGE (FOR OTHER THAN GALLOWAY) UNDER ANES., UPPER EXTREMITY (WRVU 0.86) performed by Parrish Betancourt MD at [facility] OR ??? PRO DRESSING CHANGE UNDER ANESTHESIA Left 02/24/2022 DRESSING CHANGE (FOR OTHER THAN GALLOWAY) UNDER ANES., UPPER EXTREMITY (WRVU 0.86) performed by Parrish Betancourt MD at [facility] OR ? ? PRO I&D DEEP ABSCESS BURSA/HEMATOMA THIGH/KNEE REGION Left 02/06/2022 INCISION & DRAINAGE ABSCESS OR HEMATOMA, THIGH, KNEE SUPERFICIAL (WRVU 6.78) performed by Jayme Armstrong MD at [facility] OR ??? PRO INCIS OF HIP/THIGH FASCIA Left 01/23/2022 @FASCIOTOMY,THIGH OR HIP FOR COMPARTMENT SYNDROME (WRVU 12.89) performed by Sigifredo Garcia MD at [facility] OR ??? PRO NEGATIVE PRESSURE WOUND THERAPY, LESS THAN OR EQUAL TO 50 SQCM Left 02/05/2022 DRESSING CHANGE (VAC ASSISTED) UP TO 50SQ.CM (WRVU 0.55) performed by Orville Hennessy MD at [facility] OR ??? PRO NEGATIVE PRESSURE WOUND THERAPY, LESS THAN OR EQUAL TO 50 SQCM Left 02/05/2022 DRESSING CHANGE (VAC ASSISTED) UP TO 50SQ.CM (WRVU 0.55) performed by Tom Valdovinos MD at [facility] OR ??? PRO NEGATIVE PRESSURE WOUND THERAPY, LESS THAN OR EQUAL TO 50 SQCM Left 02/08/2022 DRESSING CHANGE (VAC ASSISTED) UP TO 50SQ.CM (WRVU 0.55) performed by Jeanette Chatterjee MD at [facility] OR ??? PRO OPEN TREAT MANDIBLE CONDYLE FX, COMPL 04/27/2013 OPEN TREATMENT, COMPLEX MANDIBLE FX., MULTI APPROACH, W/ FIXATION performed by Kishore Neil MD at [facility] OR ??? PRO REVISE MEDIAN N/CARPAL TUNNEL SURG Left 01/23/2022 MEDIAN NERVE DECOMPRESSION (CARPAL TUNNEL RELEASE) (WRVU 4.97) performed by Sigifredo Garcia MD at [facility] OR ??? PRO SEC CLSR SURG WOUND/DEHSN EXTENSIVE/COMPLICATED Left 01/26/2022 SECONDARY CLOSURE SURGICAL WOUND OR DEHISCENCE, EXTENSIVE OR COMPLICATED, UPPER EXTREMITY (WRVU 12.04) performed by Sigifredo Garcia MD at [facility] OR Current Facility-Administered Medications: ??? epoetin salina-epbx (Retacrit) injection 20,000 units/mL 16,000 Units, 16,000 Units, Subcutaneous,Weekly, Nancy Chahal MD, 16,000 Units at 02/25/22 [id number] ??? amLODIPine (Norvasc) tablet 10 mg, 10 [...] date: 01/23/2022 Attending Physician: Allison Kelly MD [facility] General Surgery History and Physical Alix Holland [...] Arteriogram Lower Extremity 02/06/2022 Nicole Vivas MD [facility] INTERVENTIONL RAD ??? PRO DEBRIDEMENT BONE EA ADDL 20 SQCM 02/08/2022 EACH ADDITIONAL 20 SQ CM, OR PART THEREOF (WRVU 1.8) performed by Jeanette Chatterjee MD at [facility] ? ? PRO DEBRIDEMENT [...] 4.1) performed by Jose Branch MD at [facility] MAIN OR ? ? PRO DEBRIDEMENT BONE MUSCLE &/FASCIA 20 SQ CM/< Left 01/31/2022 DEBRIDEMENT SKIN, SUBCU, MUSCLE, BONE UPPER EXTREMITY (WRVU 4.1) performed by Jose Branch MDat [facility] MAIN OR ? ? PRO DEBRIDEMENT BONE MUSCLE &/FASCIA 20 SQ CM/< Left 02/02/2022 DEBRIDEMENT SKIN, SUBCU, MUSCLE, BONE UPPER EXTREMITY (WRVU 4.1) performed by Hina Starks MD at [facility] MAIN OR ? ? PRO DEBRIDEMENT BONE MUSCLE &/FASCIA 20 SQ CM/< Left 02/02/2022 DEBRIDEMENT SKIN, SUBCU, MUSCLE, BONE, LOWER EXTREMITY (WRVU 4.1) performed by Hina Starks MD at [facility] MAIN OR ? ? PRO DEBRIDEMENT MUSCLE AND FASCIA 20 SQ CM/< Left 01/26/2022 DEBRIDEMENT SKIN, SUBCU, MUSCLE, LOWER EXTREMITY (WRVU 2.7) performed by Sigifredo Garcia MD at [facility] OR ? ? PRO DEBRIDEMENT MUSCLE AND FASCIA 20 SQ CM/< Left 01/26/2022 DEBRIDEMENT SKIN, SUBCU, MUSCLE, UPPER EXTREMITY (WRVU 2.7) performed by Sigifredo Garcia MD at [facility] OR ? ? PRO DEBRIDEMENT MUSCLE AND FASCIA 20 SQ CM/< Left 02/05/2022 DEBRIDEMENT SKIN, SUBCU, MUSCLE, LOWER EXTREMITY (WRVU 2.7) performed by Tom Valdovinos MD at [facility] OR ? ? PRO DEBRIDEMENT MUSCLE AND FASCIA 20 SQ CM/< Left 02/04/2022 DEBRIDEMENT SKIN, SUBCU, MUSCLE, LOWER EXTREMITY (WRVU 2.7) performed by Sigifredo Garcia MD at [facility] OR ? ? PRO DEBRIDEMENT MUSCLE AND FASCIA 20 SQ CM/< Left 02/15/2022 DEBRIDEMENT SKIN, SUBCU, MUSCLE, UPPER EXTREMITY (WRVU 2.7) performed by Jayme Armstrong MD at [facility] OR ? ? PRO DEBRIDEMENT MUSCLE AND FASCIA 20 SQ CM/< Left 02/19/2022 DEBRIDEMENT SKIN, SUBCU, MUSCLE, LOWER EXTREMITY (WRVU 2.7) performed by Jayme Armstrong MD at [facility] OR ? ? PRO DEBRIDEMENT MUSCLE AND FASCIA 20 SQ CM/< Left 02/22/2022 DEBRIDEMENT SKIN, SUBCU, MUSCLE, LOWER EXTREMITY (WRVU 2.7) performed by Parrish Betancourt MD at [facility] OR ? ? PRO DEBRIDEMENT SUBCUTANEOUS TISSUE 20 SQCM/< Left 02/04/2022 DEBRIDEMENT SKIN AND SUBCU, UPPER EXTREMITY (WRVU 1.01) performed [facility] ? ? PRO DEBRIDEMENT SUBCUTANEOUS TISSUE 20 SQCM/< Left 02/08/2022 DEBRIDEMENT SKIN AND SUBCU, LOWER EXTREMITY (WRVU 1.01) performed by Jeanette Chatterjee MD at [facility] OR ? ? PRO DEBRIDEMENT SUBCUTANEOUS TISSUE 20 SQCM/< Left 02/09/2022 DEBRIDEMENT SKIN AND SUBCU, LOWER EXTREMITY (WRVU 1.01) performed by Jeanette Chatterjee MD at [facility] OR ? ? PRO DEBRIDEMENT SUBCUTANEOUS TISSUE 20 SQCM/< Left 02/11/2022 DEBRIDEMENT SKIN AND SUBCU, LOWER EXTREMITY (WRVU 1.01) performed by Parrish Betancourt MD at [facility] OR ? ? PRO DEBRIDEMENT SUBCUTANEOUS TISSUE 20 SQCM/< Left 02/13/2022 DEBRIDEMENT SKIN AND SUBCU, LOWER EXTREMITY (WRVU 1.01) performed by Jeanette Chatterjee MD at [facility] OR ? ? PRO DEBRIDEMENT SUBCUTANEOUS TISSUE 20 SQCM/< Left 02/15/2022 DEBRIDEMENT SKIN AND SUBCU, LOWER EXTREMITY (WRVU 1.01) performed by Jayme Armstrong MD at [facility] OR ? ? PRO DEBRIDEMENT SUBCUTANEOUS TISSUE 20 SQCM/< Left 02/17/2022 DEBRIDEMENT SKIN AND SUBCU, LOWER EXTREMITY (WRVU 1.01) performed by Jayme Armstrong MD at [facility] OR ??? PRO DECOMP FOREARM, 2 COMPART, W/O DEBRIDE Left 01/23/2022 FASCIOTOMY; FOREARM AND\OR WRIST, FLEXOR & EXTENS. COMP (WRVU 10.79) performed by Sigifredo Garcia MD at [facility] OR ??? PRO DECOMPRESS ANT/LAT+POST LEG CMPART Left 01/23/2022 FASCIOTOMY, LOWER LEG, ALL COMPARTMENTS (WRVU 7.82) performed by Sigifredo Garcia MD at [facility] OR ??? PRO DRESSING CHANGE UNDER ANESTHESIA Left 02/11/2022 DRESSING CHANGE (FOR OTHER THAN GALLOWAY) UNDER ANES., UPPER EXTREMITY (WRVU 0.86) performed by Parrish Betancourt MD at [facility] OR ??? PRO DRESSING CHANGE UNDER ANESTHESIA Left 02/13/2022 DRESSING CHANGE (FOR OTHER THAN GALLOWAY) UNDER ANES., UPPER EXTREMITY (WRVU 0.86) performed by Jeanette Chatterjee MD at [facility] OR ??? PRO DRESSING CHANGE UNDER ANESTHESIA Left 02/17/2022 DRESSING CHANGE (FOR OTHER THAN GALLOWAY) UNDER ANES., UPPER EXTREMITY (WRVU 0.86) performed by Jayme Armstrong MD at [facility] OR ??? PRO DRESSING CHANGE UNDER ANESTHESIA Left 02/19/2022 DRESSING CHANGE (FOR OTHER THAN GALLOWAY) UNDER ANES., UPPER EXTREMITY (WRVU 0.86) performed by Jayme Armstrong MD at [facility] MAIN OR ??? PRO DRESSING CHANGE UNDER ANESTHESIA Left 02/22/2022 DRESSING CHANGE (FOR OTHER THAN GALLOWAY) UNDER ANES., UPPER EXTREMITY (WRVU 0.86) performed by Parrish Betancourt MD at [facility] MAIN OR ? ? PRO I&D DEEP ABSCESS BURSA/HEMATOMA THIGH/KNEE REGION Left 02/06/2022 INCISION & DRAINAGE ABSCESS OR HEMATOMA, THIGH, KNEE SUPERFICIAL (WRVU 6.78) performed by Jayme Armstrong MD at [facility] OR ??? PRO INCIS OF HIP/THIGH FASCIA Left 01/23/2022 @FASCIOTOMY,THIGH OR HIP FOR COMPARTMENT SYNDROME (WRVU 12.89) performed by Sigifredo Garcia MD at [facility] OR ??? PRO NEGATIVE PRESSURE WOUND THERAPY, LESS THAN OR EQUAL TO 50 SQCM Left 02/05/2022 DRESSING CHANGE (VAC ASSISTED) UP TO 50SQ.CM (WRVU 0.55) performed by Orville Hennessy MD at [facility] OR ??? PRO NEGATIVE PRESSURE WOUND THERAPY, LESS THAN OR EQUAL TO 50 SQCM Left 02/05/2022 DRESSING CHANGE (VAC ASSISTED) UP TO 50SQ.CM (WRVU 0.55) performed by Tom Valdovinos MD at [facility] OR ??? PRO NEGATIVE PRESSURE WOUND THERAPY, LESS THAN OR EQUAL TO 50 SQCM Left 02/08/2022 DRESSING CHANGE (VAC ASSISTED) UP TO 50SQ.CM (WRVU 0.55) performed by Jeanette Chatterjee MD at [facility] OR ??? PRO OPEN TREAT MANDIBLE CONDYLE FX, COMPL 04/27/2013 OPEN TREATMENT, COMPLEX MANDIBLE FX., MULTI APPROACH, W/ FIXATION performed by Kishore Neil MD at [facility] OR ??? PRO REVISE MEDIAN N/CARPAL TUNNEL SURG Left 01/23/2022 MEDIAN NERVE DECOMPRESSION (CARPAL TUNNEL RELEASE) (WRVU 4.97) performed by Sigifredo Garcia MD at [facility] OR ??? PRO SEC CLSR [...] date: 01/23/2022 Attending Physician: Gela Novak MD [facility] General Surgery History and Physical Alix Holland [...] Arteriogram Lower Extremity 02/06/2022 Nicole Vivas MD [facility] INTERVENTIONL RAD ??? PRO DEBRIDEMENT BONE EA ADDL 20 SQCM 02/08/2022 EACH ADDITIONAL 20 SQ CM, OR PART THEREOF (WRVU 1.8) performed by Jeanette Chatterjee MD at [facility] ? ? PRO DEBRIDEMENT [...] 4.1) performed by Jose Branch MD at [facility] MAIN OR ? ? PRO DEBRIDEMENT BONE MUSCLE &/FASCIA 20 SQ CM/< Left 01/31/2022 DEBRIDEMENT SKIN, SUBCU, MUSCLE, BONE UPPER EXTREMITY (WRVU 4.1) performed by Jose Branch MDat [facility] MAIN OR ? ? PRO DEBRIDEMENT BONE MUSCLE &/FASCIA 20 SQ CM/< Left 02/02/2022 DEBRIDEMENT SKIN, SUBCU, MUSCLE, BONE UPPER EXTREMITY (WRVU 4.1) performed by Hina Starks MD at [facility] MAIN OR ? ? PRO DEBRIDEMENT BONE MUSCLE &/FASCIA 20 SQ CM/< Left 02/02/2022 DEBRIDEMENT SKIN, SUBCU, MUSCLE, BONE, LOWER EXTREMITY (WRVU 4.1) performed by Hina Starks MD at [facility] MAIN OR ? ? PRO DEBRIDEMENT MUSCLE AND FASCIA 20 SQ CM/< Left 01/26/2022 DEBRIDEMENT SKIN, SUBCU, MUSCLE, LOWER EXTREMITY (WRVU 2.7) performed by Sigifredo Garcia MD at [facility] MAIN OR ? ? PRO DEBRIDEMENT MUSCLE AND FASCIA 20 SQ CM/< Left 01/26/2022 DEBRIDEMENT SKIN, SUBCU, MUSCLE, UPPER EXTREMITY (WRVU 2.7) performed by Sigifredo Garcia MD at [facility] MAIN OR ? ? PRO DEBRIDEMENT MUSCLE AND FASCIA 20 SQ CM/< Left 02/05/2022 DEBRIDEMENT SKIN, SUBCU, MUSCLE, LOWER EXTREMITY (WRVU 2.7) performed by Tom Valdovinos MD at [facility] OR ? ? PRO DEBRIDEMENT MUSCLE AND FASCIA 20 SQ CM/< Left 02/04/2022 DEBRIDEMENT SKIN, SUBCU, MUSCLE, LOWER EXTREMITY (WRVU 2.7) performed by Sigifredo Garcia MD at [facility] OR ? ? PRO DEBRIDEMENT MUSCLE AND FASCIA 20 SQ CM/< Left 02/15/2022 DEBRIDEMENT SKIN, SUBCU, MUSCLE, UPPER EXTREMITY (WRVU 2.7) performed by Jayme Armstrong MD at [facility] OR ? ? PRO DEBRIDEMENT MUSCLE AND FASCIA 20 SQ CM/< Left 02/19/2022 DEBRIDEMENT SKIN, SUBCU, MUSCLE, LOWER EXTREMITY (WRVU 2.7) performed by Jayme Armstrong MD at [facility] OR ? ? PRO DEBRIDEMENT SUBCUTANEOUS TISSUE 20 SQCM/< Left 02/04/2022 DEBRIDEMENT SKIN AND SUBCU, UPPER EXTREMITY (WRVU 1.01) [facility] ? ? PRO DEBRIDEMENT SUBCUTANEOUS TISSUE 20 SQCM/< Left 02/08/2022 DEBRIDEMENT SKIN AND SUBCU, LOWER EXTREMITY (WRVU 1.01) performed by Jeanette Chatterjee MD at [facility] OR ? ? PRO DEBRIDEMENT SUBCUTANEOUS TISSUE 20 SQCM/< Left 02/09/2022 DEBRIDEMENT SKIN AND SUBCU, LOWER EXTREMITY (WRVU 1.01) performed by Jeanette Chatterjee MD at [facility] OR ? ? PRO DEBRIDEMENT SUBCUTANEOUS TISSUE 20 SQCM/< Left 02/11/2022 DEBRIDEMENT SKIN AND SUBCU, LOWER EXTREMITY (WRVU 1.01) performed by Parrish Betancourt MD at [facility] OR ? ? PRO DEBRIDEMENT SUBCUTANEOUS TISSUE 20 SQCM/< Left 02/13/2022 DEBRIDEMENT SKIN AND SUBCU, LOWER EXTREMITY (WRVU 1.01) performed by Jeanette Chatterjee MD at [facility] OR ? ? PRO DEBRIDEMENT SUBCUTANEOUS TISSUE 20 SQCM/< Left 02/15/2022 DEBRIDEMENT SKIN AND SUBCU, LOWER EXTREMITY (WRVU 1.01) performed by Jayme Armstrong MD at [facility] OR ? ? PRO DEBRIDEMENT SUBCUTANEOUS TISSUE 20 SQCM/< Left 02/17/2022 DEBRIDEMENT SKIN AND SUBCU, LOWER EXTREMITY (WRVU 1.01) [facility] ??? PRO DECOMP FOREARM, 2 COMPART, W/O DEBRIDE Left 01/23/2022 FASCIOTOMY; FOREARM AND\OR WRIST, FLEXOR & EXTENS. COMP (WRVU 10.79) performed by Sigifredo Garcia MD at [facility] OR ??? PRO DECOMPRESS ANT/LAT+POST LEG CMPART Left 01/23/2022 FASCIOTOMY, LOWER LEG, ALL COMPARTMENTS (WRVU 7.82) performed by Sigifredo Garcia MD at [facility] OR ??? PRO DRESSING CHANGE UNDER ANESTHESIA Left 02/11/2022 DRESSING CHANGE (FOR OTHER THAN GALLOWAY) UNDER ANES., UPPER EXTREMITY (WRVU 0.86) performed by Parrish Betancourt MD at [facility] OR ??? PRO DRESSING CHANGE UNDER ANESTHESIA Left 02/13/2022 DRESSING CHANGE (FOR OTHER THAN GALLOWAY) UNDER ANES., UPPER EXTREMITY (WRVU 0.86) performed by Jeanette Chatterjee MD at [facility] OR ??? PRO DRESSING CHANGE UNDER ANESTHESIA Left 02/17/2022 DRESSING CHANGE (FOR OTHER THAN GALLOWAY) UNDER ANES., UPPER EXTREMITY (WRVU 0.86) performed by Jayme Armstrong MD at [facility] OR ??? PRO DRESSING CHANGE UNDER ANESTHESIA Left 02/19/2022 DRESSING CHANGE (FOR OTHER THAN GALLOWAY) UNDER ANES., UPPER EXTREMITY (WRVU 0.86) performed by Jayme Armstrong MD at [facility] OR ? ? PRO I&D DEEP ABSCESS BURSA/HEMATOMA THIGH/KNEE REGION Left 02/06/2022 INCISION & DRAINAGE ABSCESS OR HEMATOMA, THIGH, KNEE SUPERFICIAL (WRVU 6.78) performed by Jayme Armstrong MD at [facility] OR ??? PRO INCIS OF HIP/THIGH FASCIA Left 01/23/2022 @FASCIOTOMY,THIGH OR HIP FOR COMPARTMENT SYNDROME (WRVU 12.89) performed by Sigifredo Garcia MD at [facility] OR ??? PRO NEGATIVE PRESSURE WOUND THERAPY, LESS THAN OR EQUAL TO 50 SQCM Left 02/05/2022 DRESSING CHANGE (VAC ASSISTED) UP TO 50SQ.CM (WRVU 0.55) performed by Orville Hennessy MD at [facility] MAIN OR ??? PRO NEGATIVE PRESSURE WOUND THERAPY, LESS THAN OR EQUAL TO 50 SQCM Left 02/05/2022 DRESSING CHANGE (VAC ASSISTED) UP TO 50SQ.CM (WRVU 0.55) performed by Tom Valdovinos MD at [facility] MAIN OR ??? PRO NEGATIVE PRESSURE WOUND THERAPY, LESS THAN OR EQUAL TO 50 SQCM Left 02/08/2022 DRESSING CHANGE (VAC ASSISTED) UP TO 50SQ.CM (WRVU 0.55) performed by Jeanette Chatterjee MD at [facility] MAIN OR ??? PRO OPEN TREAT MANDIBLE CONDYLE FX, COMPL 04/27/2013 OPEN TREATMENT, COMPLEX MANDIBLE FX., MULTI APPROACH, W/ FIXATION performed by Kishore Neil MD at [facility] OR ??? PRO REVISE MEDIAN N/CARPAL TUNNEL SURG Left 01/23/2022 MEDIAN NERVE DECOMPRESSION (CARPAL TUNNEL RELEASE) (WRVU 4.97) performed by Sigifredo Garcia MD at [facility] MAIN OR ??? PRO SEC CLSR SURG WOUND/DEHSN EXTENSIVE/COMPLICATED Left 01/26/2022 SECONDARY CLOSURE SURGICAL WOUND OR DEHISCENCE, EXTENSIVE OR COMPLICATED, UPPER EXTREMITY (WRVU 12.04) performed by Sigifredo Garcia MD at [facility] MAIN OR Current Facility-Administered Medications: ??? heparin [...] date: 01/23/2022 Attending Physician: Gela Novak MD [facility] General Surgery History and Physical Alix Holland [...] Arteriogram Lower Extremity 02/06/2022 Nicole Vivas MD [facility] INTERVENTIONL RAD ??? PRO DEBRIDEMENT BONE EA ADDL 20 SQCM 02/08/2022 EACH ADDITIONAL 20 SQ CM, OR PART THEREOF (WRVU 1.8) performed by Jeanette Chatterjee MD at [facility] ? ? PRO DEBRIDEMENT [...] 4.1) performed by Jose Branch MD at [facility] MAIN OR ? ? PRO DEBRIDEMENT BONE MUSCLE &/FASCIA 20 SQ CM/< Left 01/31/2022 DEBRIDEMENT SKIN, SUBCU, MUSCLE, BONE UPPER EXTREMITY (WRVU 4.1) performed by Jose Branch MDat [facility] MAIN OR ? ? PRO DEBRIDEMENT BONE MUSCLE &/FASCIA 20 SQ CM/< Left 02/02/2022 DEBRIDEMENT SKIN, SUBCU, MUSCLE, BONE UPPER EXTREMITY (WRVU 4.1) performed by Hina Starks MD at [facility] MAIN OR ? ? PRO DEBRIDEMENT BONE MUSCLE &/FASCIA 20 SQ CM/< Left 02/02/2022 DEBRIDEMENT SKIN, SUBCU, MUSCLE, BONE, LOWER EXTREMITY (WRVU 4.1) performed by Hina Starks MD at [facility] MAIN OR ? ? PRO DEBRIDEMENT MUSCLE AND FASCIA 20 SQ CM/< Left 01/26/2022 DEBRIDEMENT SKIN, SUBCU, MUSCLE, LOWER EXTREMITY (WRVU 2.7) performed by Sigifredo Garcia MD at [facility] MAIN OR ? ? PRO DEBRIDEMENT MUSCLE AND FASCIA 20 SQ CM/< Left 01/26/2022 DEBRIDEMENT SKIN, SUBCU, MUSCLE, UPPER EXTREMITY (WRVU 2.7) performed by Sigifredo Garcia MD at [facility] OR ? ? PRO DEBRIDEMENT MUSCLE AND FASCIA 20 SQ CM/< Left 02/05/2022 DEBRIDEMENT SKIN, SUBCU, MUSCLE, LOWER EXTREMITY (WRVU 2.7) performed by Tom Valdovinos MD at [facility] OR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 FIXATION performed by Kishore Neil MD at [facility] OR ??? PRO REVISE MEDIAN N/CARPAL TUNNEL SURG Left 01/23/2022 MEDIAN NERVE DECOMPRESSION (CARPAL TUNNEL RELEASE) (WRVU 4.97) performed by Sigifredo Garcia MD at [facility] MAIN OR ??? PRO SEC CLSR SURG WOUND/DEHSN EXTENSIVE/COMPLICATED Left 01/26/2022 SECONDARY CLOSURE SURGICAL WOUND OR DEHISCENCE, EXTENSIVE OR COMPLICATED, UPPER EXTREMITY (WRVU 12.04) performed by Sigifredo Garcia MD at [facility] OR Current Facility-Administered Medications: ??? [...] 0.6 mg, Intravenous, Q2H PRN, Rogers Solano, BALL MILL OPERATOR, 0.6 mg at 02/09/22 0644 ??? alteplase [...] mg/mL) in sodium chloride 0.9% 50 mL CMM OPERATOR infusion, , Intravenous, CMM OPERATOR Only, Kaitlyn Rock MD, Last Rate: 1 [...] Q1 Min PRN, Kaitlyn Rock MD ??? CMM OPERATOR hutton, , Intravenous, Continuous PRN, Kaitlyn Rock MD ??? HYDROmorphone (mg) CMM OPERATOR shift total and Settings verification, , Intravenous, 2 Times Daily- CMM OPERATOR Shift Total, Kaitlyn Rock MD ??? vancomycin [...] multi-dose injection, , Intravenous, PRN, Perez Turner, ORTHOPEDIC PHYSICAL THERAPIST, 1 mg at 02/06/22 1306 ??? ketamine (Ketalar) (10 mg/mL) IV bolus injection (Anesthesia), , Intravenous, PRN, Anthony Truner CRNA, 10 mg at 02/06/22 1420 ??? [...] was initially admitted to MICU 01/23 at [facility] after he was found down following fentanyl [...] 4.1) performed by Jose Branch MD at [facility] MAIN OR ? ? PRO DEBRIDEMENT BONE MUSCLE &/FASCIA 20 SQ CM/< Left 01/31/2022 DEBRIDEMENT SKIN, SUBCU, MUSCLE, BONE UPPER EXTREMITY (WRVU 4.1) performed by Jose Branch MDat [facility] MAIN OR ? ? PRO DEBRIDEMENT BONE MUSCLE &/FASCIA 20 SQ CM/< Left 02/02/2022 DEBRIDEMENT SKIN, SUBCU, MUSCLE, BONE UPPER EXTREMITY (WRVU 4.1) performed by Hina Starks MD at [facility] MAIN OR ? ? PRO DEBRIDEMENT BONE MUSCLE &/FASCIA 20 SQ CM/< Left 02/02/2022 DEBRIDEMENT SKIN, SUBCU, MUSCLE, BONE, LOWER EXTREMITY (WRVU 4.1) performed by Hina Starks MD at [facility] MAIN OR ? ? PRO DEBRIDEMENT MUSCLE AND FASCIA 20 SQ CM/< Left 01/26/2022 DEBRIDEMENT SKIN, SUBCU, MUSCLE, LOWER EXTREMITY (WRVU 2.7) performed by Sigifredo Garcia MD at [facility] OR ? ? PRO DEBRIDEMENT MUSCLE AND FASCIA 20 SQ CM/< Left 01/26/2022 DEBRIDEMENT SKIN, SUBCU, MUSCLE, UPPER EXTREMITY (WRVU 2.7) performed by Sigifredo Garcia MD at [facility] OR ? ? PRO DEBRIDEMENT MUSCLE AND FASCIA 20 SQ CM/< Left 02/05/2022 DEBRIDEMENT SKIN, SUBCU, MUSCLE, LOWER EXTREMITY (WRVU 2.7) performed by Tom Valdovinos MD at [facility] OR ??? PRO DECOMP FOREARM, 2 COMPART, W/O DEBRIDE Left 01/23/2022 FASCIOTOMY; FOREARM AND\OR WRIST, FLEXOR & EXTENS. COMP (WRVU 10.79) performed by Sigifredo Garcia MD at [facility] MAIN OR ??? PRO DECOMPRESS ANT/LAT+POST LEG CMPART Left 01/23/2022 FASCIOTOMY, LOWER LEG, ALL COMPARTMENTS (WRVU 7.82) performed by Sigifredo Garcia MD at [facility] OR ??? PRO INCIS OF HIP/THIGH FASCIA Left 01/23/2022 @FASCIOTOMY,THIGH OR HIP FOR COMPARTMENT SYNDROME (WRVU 12.89) performed by Sigifredo Garcia MD at [facility] OR ??? PRO NEGATIVE PRESSURE WOUND THERAPY, LESS THAN OR EQUAL TO 50 SQCM Left 02/05/2022 DRESSING CHANGE (VAC ASSISTED) UP TO 50SQ.CM (WRVU 0.55) performed by Orville Hennessy MD at [facility] OR ??? PRO NEGATIVE PRESSURE WOUND THERAPY, LESS THAN OR EQUAL TO 50 SQCM Left 02/05/2022 DRESSING CHANGE (VAC ASSISTED) UP TO 50SQ.CM (WRVU 0.55) performed by Tom Valdovinos MD at [facility] OR ??? PRO OPEN TREAT MANDIBLE CONDYLE FX, COMPL 04/27/2013 OPEN TREATMENT, COMPLEX MANDIBLE FX., MULTI APPROACH, W/ FIXATION performed by Kishore Neil MD at [facility] MAIN OR ??? PRO REVISE MEDIAN N/CARPAL TUNNEL SURG Left 01/23/2022 MEDIAN NERVE DECOMPRESSION (CARPAL TUNNEL RELEASE) (WRVU 4.97) performed by Sigifredo Garcia MD at [facility] MAIN OR ??? PRO SEC CLSR SURG WOUND/DEHSN EXTENSIVE/COMPLICATED Left 01/26/2022 SECONDARY CLOSURE SURGICAL WOUND OR DEHISCENCE, EXTENSIVE OR COMPLICATED, UPPER EXTREMITY (WRVU 12.04) performed by Sigifredo Garcia MD at [facility] MAIN OR MEDICATIONS: Medication Sig ??? predniSONE [...] Jones MD 02/06/2022 General Surgery consult pager #[phone] I saw and evaluated the patient with [...] Left lower extremity angiogram via righ t JOINTER MACHINE OPERATOR access. Past Medical/Surgical History: Patient Active Problem [...] 4.1) performed by Jose Branch MD at [facility] MAIN OR ? ? PRO DEBRIDEMENT BONE MUSCLE &/FASCIA 20 SQ CM/< Left 01/31/2022 DEBRIDEMENT SKIN, SUBCU, MUSCLE, BONE UPPER EXTREMITY (WRVU 4.1) performed by Jose Branch MDat [facility] MAIN OR ? ? PRO DEBRIDEMENT BONE MUSCLE &/FASCIA 20 SQ CM/< Left 02/02/2022 DEBRIDEMENT SKIN, SUBCU, MUSCLE, BONE UPPER EXTREMITY (WRVU 4.1) performed by Hina Starks MD at [facility] MAIN OR ? ? PRO DEBRIDEMENT BONE MUSCLE &/FASCIA 20 SQ CM/< Left 02/02/2022 DEBRIDEMENT SKIN, SUBCU, MUSCLE, BONE, LOWER EXTREMITY (WRVU 4.1) performed by Hina Starks MD at [facility] MAIN OR ? ? PRO DEBRIDEMENT MUSCLE AND FASCIA 20 SQ CM/< Left 01/26/2022 DEBRIDEMENT SKIN, SUBCU, MUSCLE, LOWER EXTREMITY (WRVU 2.7) performed by Sigifredo Garcia MD at [facility] MAIN OR ? ? PRO DEBRIDEMENT MUSCLE AND FASCIA 20 SQ CM/< Left 01/26/2022 DEBRIDEMENT SKIN, SUBCU, MUSCLE, UPPER EXTREMITY (WRVU 2.7) performed by Sigifredo Garcia MD at [facility] MAIN OR ? ? PRO DEBRIDEMENT MUSCLE AND FASCIA 20 SQ CM/< Left 02/05/2022 DEBRIDEMENT SKIN, SUBCU, MUSCLE, LOWER EXTREMITY (WRVU 2.7) performed by Tom Valdovinos MD at [facility] MAIN OR ??? PRO DECOMP FOREARM, 2 COMPART, W/O DEBRIDE Left 01/23/2022 FASCIOTOMY; FOREARM AND\OR WRIST, FLEXOR & EXTENS. COMP (WRVU 10.79) performed by Sigifredo Garcia MD at [facility] MAIN OR ??? PRO DECOMPRESS ANT/LAT+POST LEG CMPART Left 01/23/2022 FASCIOTOMY, LOWER LEG, ALL COMPARTMENTS (WRVU 7.82) performed by Sigifredo Garcia MD at [facility] MAIN OR ??? PRO INCIS OF HIP/THIGH FASCIA Left 01/23/2022 @FASCIOTOMY,THIGH OR HIP FOR COMPARTMENT SYNDROME (WRVU 12.89) performed by Sigifredo Garcia MD at [facility] MAIN OR ??? PRO NEGATIVE PRESSURE WOUND THERAPY, LESS THAN OR EQUAL TO 50 SQCM Left 02/05/2022 DRESSING CHANGE (VAC ASSISTED) UP TO 50SQ.CM (WRVU 0.55) performed by Orville Hennessy MD at [facility] OR ??? PRO NEGATIVE PRESSURE WOUND THERAPY, LESS THAN OR EQUAL TO 50 SQCM Left 02/05/2022 DRESSING CHANGE (VAC ASSISTED) UP TO 50SQ.CM (WRVU 0.55) performed by Tom Valdovinos MD at [facility] MAIN OR ??? PRO OPEN TREAT MANDIBLE CONDYLE FX, COMPL 04/27/2013 OPEN TREATMENT, COMPLEX MANDIBLE FX., MULTI APPROACH, W/ FIXATION performed by Kishore Neil MD at [facility] MAIN OR ??? PRO REVISE MEDIAN N/CARPAL TUNNEL SURG Left 01/23/2022 MEDIAN NERVE DECOMPRESSION (CARPAL TUNNEL RELEASE) (WRVU 4.97) performed by Sigifredo Garcia MD at [facility] MAIN OR ??? PRO SEC CLSR SURG WOUND/DEHSN EXTENSIVE/COMPLICATED Left 01/26/2022 SECONDARY CLOSURE SURGICAL WOUND OR DEHISCENCE, EXTENSIVE OR COMPLICATED, UPPER EXTREMITY (WRVU 12.04) performed by Sigifredo Garcia MD at [facility] OR Medications: No current facility-administered [...] for procedure: Lidocaine Planned access site: Right JOINTER MACHINE OPERATOR Position: Supine Consent: -- (2 Physician consent, [...] 4.1) performed by Jose Branch MD at [facility] MAIN OR ? ? PRO DEBRIDEMENT BONE MUSCLE &/FASCIA 20 SQ CM/< Left 01/31/2022 DEBRIDEMENT SKIN, SUBCU, MUSCLE, BONE UPPER EXTREMITY (WRVU 4.1) performed by Jose Branch MDat [facility] MAIN OR ? ? PRO DEBRIDEMENT BONE MUSCLE &/FASCIA 20 SQ CM/< Left 02/02/2022 DEBRIDEMENT SKIN, SUBCU, MUSCLE, BONE UPPER EXTREMITY (WRVU 4.1) performed by Hina Starks MD at [facility] MAIN OR ? ? PRO DEBRIDEMENT BONE MUSCLE &/FASCIA 20 SQ CM/< Left 02/02/2022 DEBRIDEMENT SKIN, SUBCU, MUSCLE, BONE, LOWER EXTREMITY (WRVU 4.1) performed by Hina Starks MD at [facility] MAIN OR ? ? PRO DEBRIDEMENT MUSCLE AND FASCIA 20 SQ CM/< Left 01/26/2022 DEBRIDEMENT SKIN, SUBCU, MUSCLE, LOWER EXTREMITY (WRVU 2.7) performed by Sigifredo Garcia MD at [facility] OR ? ? PRO DEBRIDEMENT MUSCLE AND FASCIA 20 SQ CM/< Left 01/26/2022 DEBRIDEMENT SKIN, SUBCU, MUSCLE, UPPER EXTREMITY (WRVU 2.7) performed by Sigifredo Garcia MD at [facility] MAIN OR ??? PRO DECOMP FOREARM, 2 COMPART, W/O DEBRIDE Left 01/23/2022 FASCIOTOMY; FOREARM AND\OR WRIST, FLEXOR & EXTENS. COMP (WRVU 10.79) performed by Sigifredo Garcia MD at [facility] OR ??? PRO DECOMPRESS ANT/LAT+POST LEG CMPART Left 01/23/2022 FASCIOTOMY, LOWER LEG, ALL COMPARTMENTS (WRVU 7.82) performed by Sigifredo Garcia MD at [facility] OR ??? PRO INCIS OF HIP/THIGH FASCIA Left 01/23/2022 @FASCIOTOMY,THIGH OR HIP FOR COMPARTMENT SYNDROME (WRVU 12.89) performed by Sigifredo Garcia MD at [facility] OR ??? PRO OPEN TREAT MANDIBLE CONDYLE FX, COMPL 04/27/2013 OPEN TREATMENT, COMPLEX MANDIBLE FX., MULTI APPROACH, W/ FIXATION performed by Kishore Neil MD at [facility] OR ??? PRO REVISE MEDIAN N/CARPAL TUNNEL SURG Left 01/23/2022 MEDIAN NERVE DECOMPRESSION (CARPAL TUNNEL RELEASE) (WRVU 4.97) performed by Sigifredo Garcia MD at [facility] MAIN OR ??? PRO SEC CLSR SURG WOUND/DEHSN EXTENSIVE/COMPLICATED Left 01/26/2022 SECONDARY CLOSURE SURGICAL WOUND OR DEHISCENCE, EXTENSIVE OR COMPLICATED, UPPER EXTREMITY (WRVU 12.04) performed by Sigifredo Garcia MD at [facility] OR Prior To Admission Medications: [...] mg/mL) in sodium chloride 0.9% 50 mL CMM OPERATOR infusion ??? HYDROmorphone (Dilaudid) (1 mg/mL) injection syringe 1 mg ??? sevelamer carbonate (Renvela) tablet 1,600 mg ??? diphenhydrAMINE (Benadryl) (50 mg/mL) injection 25 mg ??? prochlorperazine (Compazine) (5 mg/mL) injection 5 mg ??? ondansetron (pf) (Zofran) (2 mg/mL) injection 4 mg ??? naloxone (Narcan) (0.4 mg/mL) injection 0.2 mg ??? CMM OPERATOR hutton ??? HYDROmorphone (mg) CMM OPERATOR shift total and Settings verification ??? vancomycin [...] Value Ref Range T&S only valid at [facility] Prepare RBC Result Value Ref [...] access should pressors be required. Will consider [place] placement for continued lab draws after arrival to the SICU. Orthopedic surgery with no immediate plans for RTOR, however will keep NPO in case emergent take back required. 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 #polysubstance abuse - Analgesia: acetaminophen, dilaudid CMM OPERATOR, lidocaine patches 5% x3 - dronabinol 10 [...] requiring intubation 04/21, GERD, gastritis, esophagitis, urachal student dean, polysubstance use (EtOH, cocaine, heroin). He is admitted tonight to the SICU due to hemorrhagic shock in the setting of ongoing bleeding from a LLE fasciotomy. He was admitted initially to the MICU 01/23 s/p VT arrest at [facility] in the setting ofbeing down for 12 [...] 4.1) performed by Jose Branch MD at [facility] MAIN OR ? ? PRO DEBRIDEMENT BONE MUSCLE &/FASCIA 20 SQ CM/< Left 01/31/2022 DEBRIDEMENT SKIN, SUBCU, MUSCLE, BONE UPPER EXTREMITY (WRVU 4.1) performed by Jose Branch MDat [facility] OR ? ? PRO DEBRIDEMENT BONE MUSCLE &/FASCIA 20 SQ CM/< Left 02/02/2022 DEBRIDEMENT SKIN, SUBCU, MUSCLE, BONE UPPER EXTREMITY (WRVU 4.1) performed by Hina Starks MD at [facility] MAIN OR ? ? PRO DEBRIDEMENT BONE MUSCLE &/FASCIA 20 SQ CM/< Left 02/02/2022 DEBRIDEMENT SKIN, SUBCU, MUSCLE, BONE, LOWER EXTREMITY (WRVU 4.1) performed by Hina Starks MD at [facility] OR ? ? PRO DEBRIDEMENT MUSCLE AND FASCIA 20 SQ CM/< Left 01/26/2022 DEBRIDEMENT SKIN, SUBCU, MUSCLE, LOWER EXTREMITY (WRVU 2.7) performed by Sigifredo Garcia MD at [facility] OR ? ? PRO DEBRIDEMENT MUSCLE AND FASCIA 20 SQ CM/< Left 01/26/2022 DEBRIDEMENT SKIN, SUBCU, MUSCLE, UPPER EXTREMITY (WRVU 2.7) performed by Sigifredo Garcia MD at [facility] OR ??? PRO DECOMP FOREARM, 2 COMPART, W/O DEBRIDE Left 01/23/2022 FASCIOTOMY; FOREARM AND\OR WRIST, FLEXOR & EXTENS. COMP (WRVU 10.79) performed by Sigifredo Garcia MD at [facility] OR ??? PRO DECOMPRESS ANT/LAT+POST LEG CMPART Left 01/23/2022 FASCIOTOMY, LOWER LEG, ALL COMPARTMENTS (WRVU 7.82) performed by Sigifredo Garcia MD at [facility] OR ??? PRO INCIS OF HIP/THIGH FASCIA Left 01/23/2022 @FASCIOTOMY,THIGH OR HIP FOR COMPARTMENT SYNDROME (WRVU 12.89) performed by Sigifredo Garcia MD at [facility] MAIN OR ??? PRO OPEN TREAT MANDIBLE CONDYLE FX, COMPL 04/27/2013 OPEN TREATMENT, COMPLEX MANDIBLE FX., MULTI APPROACH, W/ FIXATION performed by Kishore Neil MD at [facility] MAIN OR ??? PRO REVISE MEDIAN N/CARPAL TUNNEL SURG Left 01/23/2022 MEDIAN NERVE DECOMPRESSION (CARPAL TUNNEL RELEASE) (WRVU 4.97) performed by Sigifredo Garcia MD at [facility] MAIN OR ??? PRO SEC CLSR SURG WOUND/DEHSN EXTENSIVE/COMPLICATED Left 01/26/2022 SECONDARY CLOSURE SURGICAL WOUND OR DEHISCENCE, EXTENSIVE OR COMPLICATED, UPPER EXTREMITY (WRVU 12.04) performed by Sigifredo Garcia MD at [facility] MAIN OR Prior To Admission Medications: Medications [...] mg/mL) in sodium chloride 0.9% 50 mL CMM OPERATOR infusion ??? HYDROmorphone (Dilaudid) (1 mg/mL) injection syringe 1 mg ??? sevelamer carbonate (Renvela) tablet 1,600 mg ??? diphenhydrAMINE (Benadryl) (50 mg/mL) injection 25 mg ??? prochlorperazine (Compazine) (5 mg/mL) injection 5 mg ??? ondansetron (pf) (Zofran) (2 mg/mL) injection 4 mg ??? naloxone (Narcan) (0.4 mg/mL) injection 0.2 mg ??? CMM OPERATOR hutton ??? HYDROmorphone (mg) CMM OPERATOR shift total and Settings verification ??? vancomycin [...] to control pain - pain control: acetaminophen, CMM OPERATOR CV: hypotension in the setting of hypovolemia [...] the LLE. David Pagan MD Orthopaedic Surgery [facility] I spoke with and examined the patient [...] properly marked. David Pagan MD Orthopaedic Surgery [facility] Associated attestation - Sigifredo Garcia MD - [...] fracture ID: 31 y.o. Male presents to [facility] with PMH significant for hypertension, angioedema requiring intubation(unclear trigger), GERD, gastritis, esophagitis, and urachal cyst s/p I&D, and polysubstance use(including EtOH, cocaine, fentanyl, heroin)??who presented in transfer from [facility] to [facility] ICU on??01/23/2022??for cardiac arrest s/p ROSC, likely [...] to neuro exam. The transport events to [facility] are not clear, but the patient was given a total of 6mg narcan, 10mg IMversed (for ?seizure activity), and and IO placed. He also developed Vtach with rates in the 220s had CPR performed via Jitendra. He was intubated on arrival to [facility] underwent defibrillation with ROSC. He was [...] was started on levophed and transferred to [facility] for ongoing management. Hospital/ICU course has been significant for: ?? Rhabdomyolysis d/t LUE + LLE Compartment Syndrome with hyperkalemic cardiac arrest ?? COVID-19 infection, Asymptomatic ?? ALTHEA requiring BUYING INTERN ?? Transaminitis, likely ischemic hepatitis ?? Possible [...] 4.1) performed by Jose Branch MD at [facility] MAIN OR ? ? PRO DEBRIDEMENT BONE MUSCLE &/FASCIA 20 SQ CM/< Left 01/31/2022 DEBRIDEMENT SKIN, SUBCU, MUSCLE, BONE UPPER EXTREMITY (WRVU 4.1) performed by Jose Branch MDat [facility] MAIN OR ? ? PRO DEBRIDEMENT MUSCLE AND FASCIA 20 SQ CM/< Left 01/26/2022 DEBRIDEMENT SKIN, SUBCU, MUSCLE, LOWER EXTREMITY (WRVU 2.7) performed by Sigifredo Garcia MD at [facility] MAIN OR ? ? PRO DEBRIDEMENT MUSCLE AND FASCIA 20 SQ CM/< Left 01/26/2022 DEBRIDEMENT SKIN, SUBCU, MUSCLE, UPPER EXTREMITY (WRVU 2.7) performed by Sigifredo Garcia MD at [facility] MAIN OR ??? PRO DECOMP FOREARM, 2 COMPART, W/O DEBRIDE Left 01/23/2022 FASCIOTOMY; FOREARM AND\OR WRIST, FLEXOR & EXTENS. COMP (WRVU 10.79) performed by Sigifredo Garcia MD at [facility] MAIN OR ??? PRO DECOMPRESS ANT/LAT+POST LEG CMPART Left 01/23/2022 FASCIOTOMY, LOWER LEG, ALL COMPARTMENTS (WRVU 7.82) performed by Sigifredo Garcia MD at [facility] MAIN OR ??? PRO INCIS OF HIP/THIGH FASCIA Left 01/23/2022 @FASCIOTOMY,THIGH OR HIP FOR COMPARTMENT SYNDROME (WRVU 12.89) performed by Sigifredo Garcia MD at [facility] MAIN OR ??? PRO OPEN TREAT MANDIBLE CONDYLE FX, COMPL 04/27/2013 OPEN TREATMENT, COMPLEX MANDIBLE FX., MULTI APPROACH, W/ FIXATION performed by Kishore Neil MD at [facility] MAIN OR ??? PRO REVISE MEDIAN N/CARPAL TUNNEL SURG Left 01/23/2022 MEDIAN NERVE DECOMPRESSION (CARPAL TUNNEL RELEASE) (WRVU 4.97) performed by Sigifredo Garcia MD at [facility] MAIN OR ??? PRO SEC CLSR SURG WOUND/DEHSN EXTENSIVE/COMPLICATED Left 01/26/2022 SECONDARY CLOSURE SURGICAL WOUND OR DEHISCENCE, EXTENSIVE OR COMPLICATED, UPPER EXTREMITY (WRVU 12.04) performed by Sigifredo Garcia MD at [facility] MAIN OR Prior To Admission Medications: Medications [...] who have questions please contact the health memory care program director that requested your imaging first. Head wo Contrast (Generic) (Exam End: 01/23/2022 3:58 AM) Impression Globi pallidi infarcts. Mild cerebral edema. Thank you for letting us participate in the care of this patient. If you are a health care provider and have any questions regarding this report, please contact the number below. For patients who have questions please contact the health memory care program director that requested your imaging first. Electronically signed by: Rex Addison MD, [facility] ([phone]), at 01/23/2022 4:27 AM XR Abdomen 1 [...] who have questions please contact the health memory care program director that requested your imaging first. Electronically signed by: Jacky Mello MD, [facility] ([phone]), at 01/23/2022 8:[address] Lower Extremity [...] who have questions please contact the health memory care program director that requested your imaging first. Electronically signed by: Melita Mills MD, [facility] ([phone]), at 01/24/2022 1:[address] Chest wo [...] who have questions please contact the health memory care program director that requested your imaging first. Electronically signed by: Rex Addison MD, [facility] ([phone]), at 01/23/2022 4:[address] Upper Extremity [...] who have questions please contact the health memory care program director that requested your imaging first. Electronically signed by: Rex Addison MD, [facility] ([phone]), at 01/23/2022 4:58 AM XR Forearm Left [...] who have questions please contact the health memory care program director that requested your imaging first. Electronically signed by: Rex Addison MD, [facility] ([phone]), at 01/23/2022 7:14 AM XR Chest One [...] who have questions please contact the health memory care program director that requested your imaging first. Electronically signed by: Rex Addison MD, [facility] ([phone]), at 01/23/2022 6:56 AM XR Femur 2 views Left (Generic) (Exam End: 01/23/2022 2:04 PM) Impression No significant osseous finding. Thank you for letting us participate in the care of this patient. If you are a health care provider and have any questions regarding this report, please contact the number below. For patients who have questions please contact the health memory care program director that requested your imaging first. Electronically signed by: Lisandro Pruett MD, [facility] ([phone]), at 01/23/2022 2:10 PM XR Tibia Fibula Left (Generic) (Exam End: 01/23/2022 2:04 PM) Impression No bony abnormality seen. Thank you for letting us participate in the care of this patient. If you are a health care provider and have any questions regarding this report, please contact the number below. For patients who have questions please contact the health memory care program director that requested your imaging first. Electronically signed by: Jacky Mello MD, [facility] ([phone]), at 01/23/2022 2:07 PM XR Chest One [...] who have questions please contact the health memory care program director that requested your imaging first. Electronically signed by: Lisandro Pruett MD, [facility] ([phone]), at 01/23/2022 5:01 PM MRI Brain wo [...] who have questions please contact the health memory care program director that requested your imaging first. Electronically signed by: Bernadine Edward [facility] ([phone]), at 01/24/2022 4:[address] Angiogram [place] (Exam End: 01/24/2022 11:32 PM) Impression Normal appearance of the large and medium size arteries of the head and neck Thank you for letting us participate in the care of this patient. If you are a health care provider and have any questions regarding this report, please contact the number below. For patients who have questions please contact the health memory care program director that requested your imaging first. Angiogram Carotids [...] who have questions please contact the health memory care program director that requested your imaging first. Chest Abdomen [...] who have questions please contact the health memory care program director that requested your imaging first. Electronically signed by: Melita Mills MD, [facility] ([phone]), at 01/30/2022 3:20 PM Other Studies: EKG - Sinus tachycardia Nonspecific T wave abnormality Abnormal ECG When compared with ECG of 23-JAN-2022 00:46, heart rate has slowed Confirmed by Clem Guo ([id number]) on 02/01/2022 1:23:54 PM TTE 01/24 Interpretation [...] requires precautions (day 11) # ALTHEA requiring BUYING INTERN; now on iHD # Hyponatremia # Hyperkalemia [...] and LLE. David Pagan MD Orthopaedic Surgery [facility] Dimas Hernandez MD - 01/31/2022 6:29 AM [...] RRR CTAB Doc Roberts MD Orthopaedic Surgery [facility] Parrish Esqueda MD - 01/28/2022 5:25 AM [...] answered. Parrish Esqueda MD Orthopaedic Surgery Pager: [phone] Kris Dean MD - 01/26/2022 6:03 AM [...] to neuro exam. The transport events to [facility] are not clear, but thepatient was given a total of 6mg narcan, 10mg IMversed (for ?seizure activity), and and IO placed. He also developed Vtach with rates in the 220s had CPR performed via Jitendra. He was intubated on arrival to [facility] underwent defibrillation with ROSC. He was [...] was started on levophed and transferred to [facility] for ongoing management. Urine drug screen: +barbiturates, +oxycodone, +opiates Tylenol, salicylates, and ethanol were negative Notable labs: WBC 27.6 Hgb 21.5 Plts 383 K 7.8-> 5.4 CO2 11 BUN 32 Cr 4.37 AG 35 Lactate >10 AST 3588 ALT 990 Trop-I >9000 SARS-CoV-2 RNA detected En-route to [facility] he was given boluses of ketamine for [...] FIXATION performed by Kishore Neil MD at [facility] MAIN OR No family history on file. [...] CK >220,000* TROPONINT 0.43* Microbiology: -01/22/22 from [facility]: SARS-CoV2 PCR positive -Blood cultures, sputum culture, UA, respiratory PCR pending ECG: Sinus tachycardia Imaging: Assessment: Alix Holland is a 31 y.o. male with PMH significant for polysubstance use who presentsto the ICU in transfer from [facility] with cardiac arrest s/p ROSC. Etiology of [...] removed Right femoral CVL placed 01/22 at [facility] Right radial A-line ETT NGT Ayala [...] Hillman APRN January 23, 2022 Critical Care [place] Team (pager [phone]) Dr. Robles is the attending of record [...] to the planned procedure. Hand Hygiene: The senior regulatory affairs specialist did perform hand hygiene prior to line insertion. Catheter type: PICC Lot number: [id number] Procedure Technique: Skin was prepped with chlorhexidine. [...] location at time of insertion: ICU 4 [facility] Rogers Solano APRN Collette Rivas PA [...] to the planned procedure. Hand Hygiene: The senior regulatory affairs specialist did perform hand hygiene prior to [...] to the planned procedure. Hand Hygiene: The senior regulatory affairs specialist did perform hand hygiene prior to [...] yes Patient location at time of insertion: [address] Procedure Comments: Entire procedure supervised by [...] location at time of insertion: ICU 3 [place] Procedure Comments: Prior to dilation wire was [...] to the planned procedure. Hand Hygiene: The senior regulatory affairs specialist did perform hand hygiene prior to [...] Patient is medically ready for discharge to [facility] for acute rehab. Per [facility], patient can have PICC line in place for discharge. Needs for Transition of Care: Plan for discharge is: Acute Rehab Transportation: ambulance , [place] ambulance 2:30pm Wheelchair van/Ambulance? Yes Ambulance transportation [...] set up out patient Suboxone once at [facility]. [facility] plans to call patient later [...] outpatient MAT appointment, please page Psychiatry at [phone] if you need assistance with this. Time [...] primary team and at interdisciplinary rounds. Sahil Edgar reviewing for possible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 EXTREMITY (WRVU 4.1) performed by Hina Starks MD at [facility] MAIN OR ? ? PRO DEBRIDEMENT BONE MUSCLE &/FASCIA 20 SQ CM/< Left 02/02/2022 DEBRIDEMENT SKIN, SUBCU, MUSCLE, BONE, LOWER EXTREMITY (WRVU 4.1) performed by Hina Starks MD at [facility] OR ? ? PRO DEBRIDEMENT MUSCLE AND FASCIA 20 SQ CM/< Left 01/26/2022 DEBRIDEMENT SKIN, SUBCU, MUSCLE, LOWER EXTREMITY (WRVU 2.7) performed by Sigifredo Garcia MD at [facility] MAIN OR ? ? PRO DEBRIDEMENT MUSCLE AND FASCIA 20 SQ CM/< Left 01/26/2022 DEBRIDEMENT SKIN, SUBCU, MUSCLE, UPPER EXTREMITY (WRVU 2.7) performed by Sigifredo Garcia MD at [facility] MAIN OR ??? PRO DECOMP FOREARM, 2 COMPART, W/O DEBRIDE Left 01/23/2022 FASCIOTOMY; FOREARM AND\OR WRIST, FLEXOR & EXTENS. COMP (WRVU 10.79) performed by Sigifredo Garcia MD at [facility] MAIN OR ??? PRO DECOMPRESS ANT/LAT+POST LEG CMPART Left 01/23/2022 FASCIOTOMY, LOWER LEG, ALL COMPARTMENTS (WRVU 7.82) performed by Sigifredo Garcia MD at [facility] MAIN OR ??? PRO INCIS OF HIP/THIGH FASCIA Left 01/23/2022 @FASCIOTOMY,THIGH OR HIP FOR COMPARTMENT SYNDROME (WRVU 12.89) performed by Sigifredo Garcia MD at [facility] MAIN OR ??? PRO OPEN TREAT MANDIBLE CONDYLE FX, COMPL 04/27/2013 OPEN TREATMENT, COMPLEX MANDIBLE FX., MULTI APPROACH, W/ FIXATION performed by Kishore Neil MD at [facility] OR ??? PRO REVISE MEDIAN N/CARPAL TUNNEL SURG Left 01/23/2022 MEDIAN NERVE DECOMPRESSION (CARPAL TUNNEL RELEASE) (WRVU 4.97) performed by Sigifredo Garcia MD at [facility] MAIN OR ??? PRO SEC CLSR SURG WOUND/DEHSN EXTENSIVE/COMPLICATED Left 01/26/2022 SECONDARY CLOSURE SURGICAL WOUND OR DEHISCENCE, EXTENSIVE OR COMPLICATED, UPPER EXTREMITY (WRVU 12.04) performed by Sigifredo Garcia MD at [facility] OR MEDS: No current facility-administered [...] Kenny Brandon MD Plastic surgery team pager: [phone] Attending: Plan discussed and agree as documented. [...] PCP: None Primary Team #: ICU (Juan #[id number]) CC: findings of CTH HPI: Alix Holland [...] he was following commands upon arrival to [facility] ICU. CTH showed bilateral symmetric globus pallidi [...] no acute intervention Today: - pain control: CMM OPERATOR, received dilaudid IV x 1 yesterday for breakthrough. > APS following for pain control recs - reports significant pain in LUE mainly this AM '05/10' Current Medications: Scheduled Meds: ??? CMM OPERATOR shift total and Settings verification Intravenous 2 Times Daily- CMM OPERATOR Shift Total ??? vancomycin 125 mg Oral [...] 4.1) performed by Jose Branch MD at [facility] MAIN OR ? ? PRO DEBRIDEMENT BONE MUSCLE &/FASCIA 20 SQ CM/< Left 01/31/2022 DEBRIDEMENT SKIN, SUBCU, MUSCLE, BONE UPPER EXTREMITY (WRVU 4.1) performed by Jose Branch, Ferdinandt [facility] MAIN OR ? ? PRO DEBRIDEMENT MUSCLE AND FASCIA 20 SQ CM/< Left 01/26/2022 DEBRIDEMENT SKIN, SUBCU, MUSCLE, LOWER EXTREMITY (WRVU 2.7) performed by Sigifredo Garcia MD at [facility] MAIN OR ? ? PRO DEBRIDEMENT MUSCLE AND FASCIA 20 SQ CM/< Left 01/26/2022 DEBRIDEMENT SKIN, SUBCU, MUSCLE, UPPER EXTREMITY (WRVU 2.7) performed by Sigifredo Garcia MD at [facility] MAIN OR ??? PRO DECOMP FOREARM, 2 COMPART, W/O DEBRIDE Left 01/23/2022 FASCIOTOMY; FOREARM AND\OR WRIST, FLEXOR & EXTENS. COMP (WRVU 10.79) performed by Sigifredo Garcia MD at [facility] MAIN OR ??? PRO DECOMPRESS ANT/LAT+POST LEG CMPART Left 01/23/2022 FASCIOTOMY, LOWER LEG, ALL COMPARTMENTS (WRVU 7.82) performed by Sigifredo Garcia MD at [facility] MAIN OR ??? PRO INCIS OF HIP/THIGH FASCIA Left 01/23/2022 @FASCIOTOMY,THIGH OR HIP FOR COMPARTMENT SYNDROME (WRVU 12.89) performed by Sigifredo Garcia MD at [facility] OR ??? PRO OPEN TREAT MANDIBLE CONDYLE FX, COMPL 04/27/2013 OPEN TREATMENT, COMPLEX MANDIBLE FX., MULTI APPROACH, W/ FIXATION performed by Kishore Neil MD at [facility] MAIN OR ??? PRO REVISE MEDIAN N/CARPAL TUNNEL SURG Left 01/23/2022 MEDIAN NERVE DECOMPRESSION (CARPAL TUNNEL RELEASE) (WRVU 4.97) performed by Sigifredo Garcia MD at [facility] OR ??? PRO SEC CLSR SURG WOUND/DEHSN EXTENSIVE/COMPLICATED Left 01/26/2022 SECONDARY CLOSURE SURGICAL WOUND OR DEHISCENCE, EXTENSIVE OR COMPLICATED, UPPER EXTREMITY (WRVU 12.04) performed by Sigifredo Garcia MD at [facility] MAIN OR Home Medications: No current facility-administered [...] year, name, knows why he is at [facility], knows he is at [facility], follows complex commands. 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 No additional workup or intervention indicated [...] from the original note were not included. [facility] Operative Note Patient Name: Alix Holland : [id number] MR#: [id number] Case Date: 02/02/2022 Surgeon: Surgeon(s) and Role: * Hina Starks MD - Primary * Ama Dickerson PA - Physician Corporate Receptionist * Terry Vázquez MD - Resident Preoperative [...] N/A Prescription Coverage: No Preferred Pharmacy: [facility], [place] - [address] [facility] [address] [facility] [id number] [facility] [address] - [place], [place] - [address] [facility] [address] [place] [address] Plan for discharge is: Pending Hospital Course [...] changes of note to overall assessment. Dilaudid CMM OPERATOR with good effect on pain. Pt slept [...] w/ minimal effect. Pt switched over to CMM OPERATOR pump w/ some improvement in pain. Wound [...] Branch MD - 01/31/2022 11:09 AM EDT [facility] Operative Note Patient Name: Alix Holland : [id number] MR#: [id number] Case Date: 01/31/2022 Surgeon: Surgeon(s) and Role: [...] Patient was met in his room, green egegik was placed in the left upper and [...] Valdovinos MD - 01/29/2022 3:50 PM EDT [facility] Operative Note Patient Name: Alix Holland : [id number] MR#: [id number] Case Date: 01/29/2022 Surgeon: Surgeon(s) and Role: [...] after fentanyl overdose. He was taken to [facility] where he had a cardiac arrest,??ROSC, and??he was intubated and sedated. He??was then transferred to [facility] for further care. ??Labs showed he had [...] then extubated and [facility] without any complication. Dr. Valdovinos [...] Modi MD 01/29/2022 Acute Pain Service Pager: [phone] I have seen and examined the patient, [...] Major MD 01/28/2022 Acute Pain Service Pager: [phone] Associated attestation - Nathan Ricardo MD - [...] Major MD 01/27/2022 Acute Pain Service Pager: [phone] Associated attestation - Nathna Ricardo MD - 02/03/2022 4:20 PM EDT I have seen and examined the patient, providing hutton components as outlined below. I have reviewed the resident???s above note; Consult Note - Adela Hackett DO - 01/27/2022 9:05 AM EDT Neurology Consultation Note - 01/27/2022 Patient name: Alix Holland Date of : 1990 PCP: None Primary Team #: ICU (Juan #[id number]) CC: findings of CTH HPI: Alix Holland [...] he was following commands upon arrival to [facility] ICU. CTH showed bilateral symmetric globus pallidi [...] mL/hr at 01/27/22 08 ??? NORepinephrine Stopped (01/26/22 2017) ??? fentaNYL 50 mcg/hr (01/27/22 08) ??? [...] 4.1) performed by Sigifredo Garcia MD at [facility] MAIN OR ? ? PRO DEBRIDEMENT BONE MUSCLE &/FASCIA 20 SQ CM/< Left 01/26/2022 DEBRIDEMENT SKIN, SUBCU, MUSCLE, BONE, LOWER EXTREMITY (WRVU 4.1) performed by Sigifredo Garcia MD [facility] MAIN OR ??? PRO DECOMP FOREARM, 2 COMPART, W/O DEBRIDE Left 01/23/2022 FASCIOTOMY; FOREARM AND\OR WRIST, FLEXOR & EXTENS. COMP (WRVU 10.79) performed by Sigifredo Garcia MD at [facility] MAIN OR ??? PRO DECOMPRESS ANT/LAT+POST LEG CMPART Left 01/23/2022 FASCIOTOMY, LOWER LEG, ALL COMPARTMENTS (WRVU 7.82) performed by Sigifredo Garcia MD at [facility] MAIN OR ??? PRO INCIS OF HIP/THIGH FASCIA Left 01/23/2022 @FASCIOTOMY,THIGH OR HIP FOR COMPARTMENT SYNDROME (WRVU 12.89) performed by Sigifredo Garcia MD at [facility] MAIN OR ??? PRO OPEN TREAT MANDIBLE CONDYLE FX, COMPL 04/27/2013 OPEN TREATMENT, COMPLEX MANDIBLE FX., MULTI APPROACH, W/ FIXATION performed by Kishore Neil MD at [facility] MAIN OR ??? PRO REVISE MEDIAN N/CARPAL TUNNEL SURG Left 01/23/2022 MEDIAN NERVE DECOMPRESSION (CARPAL TUNNEL RELEASE) (WRVU 4.97) performed by Sigifredo Garcia MD at [facility] MAIN OR Home Medications: No current facility-administered [...] year, name, knows why he is at [facility], knows he is at [facility], follows complex commands. CN: PERRL, EOMI Tongue [...] as documented. Josh Boyd D.O. Neurology Department [facility] [email or web address] Plan of Care - Halley Hoyt RN [...] Garcia MD - 01/26/2022 4:23 PM EDT [facility] Operative Note Patient Name: Alix Holland : [id number] MR#: [id number] Case Date: 01/26/2022 Surgeon: Surgeon(s) and Role: [...] after fentanyl overdose. He was taken to [facility] where he had a cardiac arrest, ROSC, and he was intubated and sedated. He was then transferred to [facility] for [facility] care. Labs showed he had hyperkalemia, acidosis, [...] Insurance: N/A Prescription Coverage: Yes Preferred Pharmacy: [id number] [id number] [facility] - [place], [place] - [address] [facility] [address] [facility] [address] Plan for discharge is: Pending Hospital Course [...] Component Value Date COVID19 Detected (A) 01/23/2022 [id number] Not Detected 04/26/2021 Past medical History: Past [...] Alix) would be surrogate decision maker per [place] decision making law. (Only good for 180 days) Any patient receiving care at [facility] must abide by [place] law. The hierarchy for surrogate decision making [...] Current DME: none Home Address listed as: [address] [address] Social & Family Supports: All names listed below confirmed with patient as current and correct Extended Emergency Contact Information Primary Emergency Contact: Josefina Holland Relation: Mother Secondary Emergency Contact: Marylou Holland [facility] Relation: Sibling Father: Alix Holland [facility] Current Care Provided by: self Provides Primary [...] Insurance: N/A Prescription Coverage: No Preferred Pharmacy: [email or web address] [address] [facility] 10 [facility] [phone] [facility] - [place], [place] - [address] [facility] [address] [place] Status: Patient is a : No Primary [...] with transition of care planning. ARIN Lieberman, [facility]- Continuing PmpPmp of Neurology [phone] Consult Note - Adela Hackett DO - 01/25/2022 9:59 AM EDT Neurology Consultation Note - 01/25/2022 Patient name: Alix Holland Date of : 1990 PCP: None Primary Team #: ICU (Juan #[id number]) CC: findings of CTH HPI: Alix Holland [...] he was following commands upon arrival to [facility] ICU. CTH showed bilateral symmetric globus pallidi [...] 10.79) performed by Sigifredo Garcia MD at [facility] MAIN OR ??? PRO DECOMPRESS ANT/LAT+POST LEG CMPART Left 01/23/2022 FASCIOTOMY, LOWER LEG, ALL COMPARTMENTS (WRVU 7.82) performed by Sigifredo Garcia MD at [facility] OR ??? PRO INCIS OF HIP/THIGH FASCIA Left 01/23/2022 @FASCIOTOMY,THIGH OR HIP FOR COMPARTMENT SYNDROME (WRVU 12.89) performed by Sigifredo Garcia MD at [facility] OR ??? PRO OPEN TREAT MANDIBLE CONDYLE FX, COMPL 04/27/2013 OPEN TREATMENT, COMPLEX MANDIBLE FX., MULTI APPROACH, W/ FIXATION performed by Kishore Neil MD at [facility] OR ??? PRO REVISE MEDIAN N/CARPAL TUNNEL SURG Left 01/23/2022 MEDIAN NERVE DECOMPRESSION (CARPAL TUNNEL RELEASE) (WRVU 4.97) performed by Sigifredo Garcia MD at [facility] MAIN OR Home Medications: No current facility-administered [...] Hackett, DO Neurology PGY-2 Neurology Consult Service# [id number] 01/25/2022 Associated attestation - Josh Boyd DO [...] as documented. Josh Boyd D.O. Neurology Department [facility] [email or web address] Consult Note - Charlotte Castañeda RD - [...] On CRRT If patient switches to shift BUYING INTERN or HD please consult nutrition for new [...] discuss plan with provider ARLETH Martinez pager #[phone]. All Active TF Orders: Nepro with goal [...] encounter: 113 kg (249 lb 1.9 oz). [place] Body Weight: 81 kg Usual Body Weight: [...] today for wound vacs. Estimated needs: Calories: [phone] (20-25 kcal/kg IBW) for the first 7-10 [...] inpatient Thank you, Charlotte Castañeda RD Pager #:[phone] Plan of Care - Forest Blankenship RN [...] PCP: None Primary Team #: ICU (Juan #[id number]) CC: findings of CTH HPI: Alix Holland [...] he was following commands upon arrival to [facility] ICU. CTH showed bilateral symmetric globus pallidi [...] FIXATION performed by Kishore Neil MD at [facility] MAIN OR Home Medications: No current facility-administered [...] >220,000 (H) 0 - 200 unit/L TSH Wilkinson Result Value Ref Range TSH 7.69 (H) [...] Value Ref Range T&S only valid at [facility] Hosp Triglyceride Result Value Ref Range Triglycerides [...] mcL Appearance UA Cloudy (A) Clear Spec Harmony UA >=1.030 (A) 1.006 - 1.030 Color [...] as documented. Josh Boyd D.O. Neurology Department [facility] [email or web address] Op Note - Sigifredo Garcia MD - 01/23/2022 8:28 AM EDT [facility] Operative Note Patient Name: Alix Holland : [id number] MR#: [id number] Case Date: 01/23/2022 Surgeon: Surgeon(s) and Role: [...] after fentanyl overdose. He was taken to [facility] where he had a cardiac arrest, ROSC, and he was intubated and sedated. He was then transferred to [facility] for urther care. Labs showed he had hyperkalemia, acidosis, ALTHEA. There was concern for a swollen left forearm so orthopedics was consulted. On exam his forearm was firm, but exam was limited due to patient's mental status. Therefore [employer] pressure monitor was used to measure the [...] to the transverse carpal ligament. Using a [place] and [facility] retractors, the transverse carpal ligament was exposed [...] evaluation and treatment. Please page Orthopaedic consults ([phone]) with any questions or co ncerns. ?? [...] father afterfentanyl overdose. He was taken to [facility] where he had a cardiac arrest, ROSC, and he was intubated and sedated. He was then transferred to [facility] for further care. Labs showed he had [...] Procedure visit Neurology Summer Wiggins MD [facility] NEUROLOGY DEPT [place], [place] [address] (Wo ) Pending Results Name [...] n the results section. DRESSING CHANGE (VAC 02/08/2022 3:21 LLE fasciotomies [...] Routine 02/08/2022 12:00 Resul ts for this (NL) PM EDT procedure are [...] the results section. BLOOD GAS VENOUS ([facility]) STAT 01/26/2022 6:19 Re sults for this [...] are i n the results section. CT [place] Routine 01/24/2022 11:32 Re [...] P athologist Signature Neutrophils % 65.3 % [facility] LABORATORY Neutr Abs (ANC) 5.26 1.70 - [facility] 6.10 [facility] x10(3)/[facility] LABORATORY Lymphocytes % 17.2 % [facility] Lymphocytes Abs 1.4 0.9 - 3.2 [facility] x10(3)/[facility] LABORATORY Monocytes % 11.0 % [facility] Monocyte Abs 0.9 0.3 - 0.9 [facility] x10(3)/[facility] LABORATORY Eosinophils % 4.6 % [facility] Eosinophils Abs 0.4 0.0 - 0.4 [facility] x10(3)/[facility] LABORATORY Basophils % 0.7 % [facility] Basophils Abs 0.1 0.0 - 0.1 [facility] x10(3)/[facility] LABORATORY Immature Gran % 1.20 % [facility] Comment: Immature granulocytes(IG's)percentage an d absolute count will include metamyelocytes, myelocytes, and promyelo cytes. Blood smears from CBCs yielding IG's will be scanned manually for concor dance. If this scan disagrees with the automated IG or if promyelocytes are not ed, a manual differential will be performed. Gemini Gran Abs 0.10 (H) 0.00 - 0.04 x10(3)/[facility] LABORATORY Specimen Anatomical Collection Method Collection Time Receive d Time (Source) Location / / Volume Laterality Blood 03/23/2022 4:35 AM 5:10 EDT AM EDT Resulting Agency Comment Spec In Lab Jhony Carnes MD HEMATOLOGY ORDERABLES Performing Organization Address City/State/[place] [address] (ABNORMAL) Hemogram (03/23/2022 4:35 AM EDT) Analysis Performed At Patho logist Time Signature WBC 8.1 4.0 - 9.5 [facility] x10(3)/[facility] LABORATORY RBC 2.96 (L) 4.58 - [facility] [place] 5.54 [facility] x10(6)/[facility] LABORATORY Hemoglobin 8.9 (L) 13.7 - [facility] 16.5 g/dL [facility] LABORATORY Hematocrit 26.2 (L) 40.5 - [facility] 48.5 % [facility]ORATORY MCV 88.5 82.9 - [facility] 93.1 [facility] LABORATORY MCH 30.1 27.5 - [facility] 32.1 pg [facility]ATORY MCHC 34.0 32.0 - [facility] 35.7 g/dL [facility]OR[facility]ORY Platelets 230 145 - 357 [facility] x10(3)/[facility] LABORATORY RDWSD 48.9 (H) 36.0 - [facility] 45.0 [facility] LABORATORY RDWCV 15.3 (H) 11.4 - [facility] 13.8 % [facility] LABORATORY MPV 9.8 7.6 - 12.9 [facility] LABORATORY nRBC % Auto 0.0 % [facility] LABORATORY nRBC Abs Auto 0.000 0.000 - [facility] 0.000 [facility] x10(3)/[facility] LABORATORY Specimen Anatomical Collection Method Collection Time Receive d Time (Source) Location / / Volume Laterality Blood 03/23/2022 4:35 AM 2 5:10 EDT AM EDT Resulting Agency Comment Spec In Lab Jhony Carnes MD HEMATOLOGY ORDERABLES Performing Organization Address City/State/[place] [address] (ABNORMAL) Basic Metabolic Panel (non-fasting) (03/23/2022 3:00 AM EDT) P athologist Signature Glucose Lvl 102 65 - 199 [facility] mg/dL [facility] LABORATORY Comment: Diabetes: >=200 mg/dL plus symp toms BUN 15 10 - 20 mg/dL [facility] LABORATORY Creatinine 0.55 (L) 0.80 - 1.50 mg/dL [facility]OR[facility] Sodium 139 135 - 145 mmol/L [facility] LABORATORY Potassium 4.1 3.5 - 5.0 mmol/L [facility] LABORATORY Comment: Please note: ??Patients with WBC >100,00 0 may have falsely elevated Potassium levels. ??For accurate Potassium quantif ication in these patients send serum separator tube (gold top) for subsequent determinations. ??Contact the Clinical Chemistry Laboratory if there are any qu estions. Chloride 101 98 - 107 mmol/L [facility]OR[facility]ORY CO2 25 22 - 31 mmol/L [facility] Anion Gap 13 5 - 15 mmol/L [facility] LABORATORY Calcium 9.6 8.5 - 10.5 mg/dL [facility] LABORATORY Estimated GFR 137 >=60 mL/min/1.73 m?? [facility] Comment: This patient's estimated [...] Organization Address City/State/[place] [address] (ABNORMAL) Differential, Automated (03/22/2022 4:15 AM EDT) [facility] gist Method Time Signature Neutrophils % 63.3 % [facility] LABORATORY Neutr Abs (ANC) 5.68 1.70 - [facility] 6.10 [place] [address](3)/[facility] LABORATORY Lymphocytes % 17.7 % [facility] Lymphocytes Abs 1.6 0.9 - 3.2 [facility] x10(3)/[facility] LABORATORY Monocytes % 12.3 % [facility]OR[facility]ORY Monocyte Abs 1.1 (H) 0.3 - 0.9 [facility] x10(3)/[facility] LABORATORY Eosinophils % 4.3 % [facility] Eosinophils Abs 0.4 0.0 - 0.4 [facility] x10(3)/[facility] LABORATORY Basophils % 0.7 % [facility] Basophils Abs 0.1 0.0 - 0.1 [facility] x10(3)/[facility] LABORATORY Immature Gran % 1.70 % [facility] Comment: Immature granulocytes(IG's)percentage an d absolute count will include metamyelocytes, myelocytes, and promyelo cytes. Blood smears from CBCs yielding IG's will be scanned manually for concor dance. If this scan disagrees with the automated IG or if promyelocytes are not ed, a manual differential will be performed. Gemini Gran Abs 0.15 (H) 0.00 - 0.04 x10(3)/[facility] LABORATORY Specimen Anatomical Collection Method Collection Time Receive d Time (Source) Location / / Volume Laterality Blood 03/22/2022 4:15 AM 4:35 EDT AM EDT Resulting Agency Comment Spec In Lab Batsheva Hill MD HEMATOLOGY ORDERABLES Performing Organization Address City/State/[place] [address] (ABNORMAL) Hemogram (03/22/2022 4:15 AM EDT) Analysis Performed At Patho logist Time Signature WBC 9.0 4.0 - 9.5 [facility] x10(3)/[facility] LABORATORY RBC 3.20 (L) 4.58 - [facility] 5.54 [facility] x10(6)/[facility] LABORATORY Hemoglobin 9.5 (L) 13.7 - [facility] 16.5 g/dL [facility] LABORATORY Hematocrit 28.0 (L) 40.5 - [facility] [place] 48.5 % [facility] LABORATORY MCV 87.5 82.9 - [facility] [place] 93.1 [facility] LABORATORY MCH 29.7 27.5 - [facility] [place] 32.1 pg [facility] LABORATORY MCHC 33.9 32.0 - [facility] [place] 35.7 g/dL [facility] LABORATORY Platelets 248 145 - 357 [facility] x10(3)/[facility] LABORATORY RDWSD 47.8 (H) 36.0 - [facility] [place] 45.0 [facility] LABORATORY RDWCV 14.9 (H) 11.4 - [facility] 13.8 % [facility] LABORATORY MPV 8.8 7.6 - 12.9 [facility] LABORATORY nRBC % Auto 0.0 % [facility] LABORATORY nRBC Abs Auto 0.000 0.000 - [facility] MANDO 0.000 [facility] x10(3)/[facility] LABORATORY Specimen Anatomical Collection Method Collection Time Receive d Time (Source) Location / / Volume Laterality Blood 03/22/2022 4:15 AM 4:35 EDT AM EDT Resulting Agency Comment Spec In Lab Batsheva Hill MD HEMATOLOGY ORDERABLES Performing Organization Address City/State/[place] [address] (ABNORMAL) Basic Metabolic Panel (non-fasting) (03/22/2022 4:15 AM EDT) P athologist Signature Glucose Lvl 98 65 - 199 [facility] mg/dL [facility] LABORATORY Comment: Diabetes: >=200 mg/dL plus symp toms BUN 16 10 - 20 mg/dL [facility] LABORATORY Creatinine 0.52 (L) 0.80 - 1.50 mg/dL [facility] Sodium 137 135 - 145 mmol/L [facility] LABORATORY Potassium 4.0 3.5 - 5.0 mmol/L [facility] LABORATORY Comment: Please note: ??Patients with WBC >100,00 0 may have falsely elevated Potassium levels. ??For accurate Potassium quantif ication in these patients send serum separator tube (gold top) for subsequent determinations. ??Contact the Clinical Chemistry Laboratory if there are any qu estions. Chloride 100 98 - 107 mmol/L [facility] CO2 24 22 - 31 mmol/L [facility] Anion Gap 13 5 - 15 mmol/L [facility] LAB[facility]ORY Calcium 9.6 8.5 - 10.5 mg/dL [facility] LABORATORY Estimated GFR 139 >=60 mL/min/1.73 m?? [facility] Comment: This patient's estimated [...] Organization Address City/State/[place] [address] (ABNORMAL) Basic Metabolic Panel (non-fasting) (03/20/2022 12:27 PM EDT) P athologist Signature Glucose Lvl 94 65 - 199 [facility] mg/dL [facility] Comment: Diabetes: >=200 mg/dL plus symp toms BUN 13 10 - 20 mg/dL [facility] Creatinine 0.67 (L) 0.80 - 1.50 mg/dL [facility] Sodium 140 135 - 145 mmol/L [facility] Potassium 4.3 3.5 - 5.0 mmol/L [facility] LABORATORY Comment: Please note: ??Patients with WBC >100,00 0 may have falsely elevated Potassium levels. ??For accurate Potassium quantif ication in these patients send serum separator tube (gold top) for subsequent determinations. ??Contact the Clinical Chemistry Laboratory if there are any qu estions. Chloride 104 98 - 107 mmol/L [facility] CO2 23 22 - 31 mmol/L [facility] Anion Gap 13 5 - 15 mmol/L [facility] Calcium 9.6 8.5 - 10.5 mg/dL [facility] LABORATORY Estimated GFR 129 >=60 mL/min/1.73 m?? [facility] Comment: This patient's estimated [...] Organization Address City/State/[place] [address] Green Tube HOLD (03/20/2022 12:27 PM EDT) P athologist Signature Green Hold Sample in [facility]. [facility] Comment: Collection date/time has been modified t o: 12:27:00. ??Previous collection date/time: 12:28:00 . Corrected from Sample in lab. [NA] on 12:29:23 EDT by Kevon Dickens Specimen Anatomical Collection Method Collection Time Receive d Time (Source) Location / / Volume Laterality Blood No Charge / 03/20/2022 12:27 03/20/2022 Unknown PM EDT 12:28 PM EDT Veto Hidalgo MD CHEMISTRY ORDERABLES Performing Organization Address City/[facility]/ZIP Code Phon e Number [address] Phosphorus (03/20/2022 12:00 PM EDT) athologist Signature Phosphorus 3.8 2.5 - 4.5 [facility] mg/dL [facility] LABORATORY Specimen Anatomical Collection Method Collection Time Receive d Time (Source) Location / / Volume Laterality Blood 03/20/2022 12:00 03/20/2022 PM EDT 12:26 PM EDT Resulting Agency Comment Spec In Lab Jeanette Chatterjee MD CHEMISTRY ORDERABLES Performing Organization Address City/[facility]/ZIP Code Phon e Number [address] Magnesium (03/20/2022 12:00 PM EDT) athologist Signature Magnesium 0.75 0.69 - 1.07 [facility] mmol/L [facility] LABOR[facility]ORY Specimen Anatomical Collection Method Collection Time Receive d Time (Source) Location / / Volume Laterality Blood 03/20/2022 12:00 03/20/2022 PM EDT 12:26 PM EDT Resulting Agency Comment Spec In Lab Jeanette Chatterjee MD CHEMISTRY ORDERABLES Performing Organization Address City/[facility]/ZIP Code Phon e Number [address] Vancomycin, trough (03/14/2022 3:09 PM EDT) athologist Signature Vanc Trough 16.1 mg/L [facility] Comment: Therapeutic range for [...] Organization Address City/State/[place] [address] (ABNORMAL) Differential, Automated (03/13/2022 6:02 AM EDT) athologist Signature Neutrophils % 68.2 % [facility] Neutr Abs (ANC) 5.47 1.70 - [facility] 6.10 [facility] x10(3)/[facility] LABORATORY Lymphocytes % 17.0 % [facility] Lymphocytes Abs 1.4 0.9 - 3.2 [facility] x10(3)/[facility] LABORATORY Monocytes % 8.0 % [facility] Monocyte Abs 0.6 0.3 - 0.9 [facility] x10(3)/[facility] LABORATORY Eosinophils % 4.2 % [facility] Eosinophils Abs 0.3 0.0 - 0.4 [facility] x10(3)[facility] LABORATORY Basophils % 0.5 % [facility] Basophils Abs 0.0 0.0 - 0.1 [facility] x10(3)/[facility] [facility] LABORATORY Immature Gran % 2.10 % [facility] LABORATORY Comment: Immature granulocytes(IG's)percentage an d absolute count will include metamyelocytes, myelocytes, and promyelo cytes. Blood smears from CBCs yielding IG's will be scanned manually for concor dance. If this scan disagrees with the automated IG or if promyelocytes are not ed, a manual differential will be performed. Gemini Gran Abs 0.17 (H) 0.00 - 0.04 x10(3)/[facility] [place] LABORATORY Specimen Anatomical Collection Method Collection Time Receive d Time (Source) Location / / Volume Laterality Blood 03/13/2022 6:02 AM 2 6:17 EDT AM EDT Resulting Agency Comment Spec In Lab Nancy Chahal MD HEMATOLOGY ORDERABLES Performing Organization Address City/State/[place] [address] (ABNORMAL) Hemogram (03/13/2022 6:02 AM EDT) Analysis Performed At Patho logist Time Signature WBC 8.0 4.0 - 9.5 [facility] x10(3)/[facility] LABORATORY RBC 3.12 (L) 4.58 [facility] 5.54 [facility] x10(6)/[facility] LABORATORY Hemoglobin 9.1 (L) 13.7 - [facility] 16.[facility] g/dL [facility] LABORATORY Hematocrit 27.5 (L) 40.5 - [facility] 48.5 % [facility] LABORATORY MCV 88.1 82.9 - [facility] 93.1 [facility] LABORATORY MCH 29.2 27.5 - [facility] 32.1 pg [facility] LABORATORY MCHC 33.1 32.0 - [facility] 35.7 g/dL [facility] LABORATORY Platelets 254 145 - 357 [facility] x10(3)/[facility] LABORATORY RDWSD 49.4 (H) 36.0 - [facility] 45.0 [facility] LABORATORY RDWCV 15.5 (H) 11.4 - [facility] 13.8 % [facility] LABORATORY MPV 8.4 7.6 - 12.9 [facility] LABORATORY nRBC % Auto 0.0 % [facility] LABORATORY nRBC Abs Auto 0.000 0.000 - [facility] 0.000 [facility] x10(3)/[facility] LABORATORY Specimen Anatomical Collection Method Collection Time Receive d Time (Source) Location / / Volume Laterality Blood 03/13/2022 6:02 AM 2 6:17 EDT AM EDT Resulting Agency Comment Spec In Lab Nancy Chahal MD HEMATOLOGY ORDERABLES Performing Organization Address City/State/[place] [address] (ABNORMAL) Phosphorus (03/13/2022 6:02 AM EDT) athologist Signature Phosphorus 4.9 (H) 2.5 - 4.5 [facility] mg/dL [facility] LABORATORY Specimen Anatomical Collection Method Collection Time Receive d Time (Source) Location / / Volume Laterality Blood 03/13/2022 6:02 AM 2 6:17 EDT AM EDT Resulting Agency Comment Spec In Lab Floridalma Sandoval MD CHEMISTRY ORDERABLES Performing Organization Address City/[facility]/ZIP Code Phon e Number [address] Magnesium (03/13/2022 6:02 AM EDT) athologist Signature Magnesium 0.70 0.69 - 1.[address] [facility] mmol/L [facility] LABORATORY Specimen Anatomical Collection Method Collection Time Receive d Time (Source) Location / / Volume Laterality Blood 03/13/2022 6:02 AM 2 6:17 EDT AM EDT Resulting Agency Comment Spec In Lab Floridalma Sandoval MD CHEMISTRY ORDERABLES Performing Organization Address City/[facility]/[place] [address] (ABNORMAL) Basic Metabolic Panel (non-fasting) (03/13/2022 6:02 AM EDT) athologist Signature Glucose Lvl 100 65 - [address] [facility] [facility] mg/dL [facility] LABORATORY Comment: Diabetes: >=200 mg/dL plus symp toms BUN 12 10 - 20 mg/dL [facility] LABORATORY Creatinine 0.65 (L) 0.80 - 1.50 mg/dL [facility] LABORATORY Sodium 139 135 - 145 mmol/L [facility] LABORATORY Potassium 3.9 3.5 - 5.0 mmol/L [facility] LABORATORY Comment: Please note: ??Patients with WBC >100,00 0 may have falsely elevated Potassium levels. ??For accurate Potassium quantif ication in these patients send serum separator tube (gold top) for subsequent determinations. ??Contact the Clinical Chemistry Laboratory if there are any qu estions. Chloride 101 98 - 107 mmol/L [facility] LABORATORY CO2 25 22 - 31 mmol/L [facility] LABORATORY Anion Gap 13 5 - 15 mmol/L [facility] LABORATORY Calcium 9.6 8.5 - 10.5 mg/dL [facility] LABORATORY Estimated GFR 130 >=60 mL/min/1.73 m?? [facility] LABORATORY Comment: This patient's estimated [...] Organization Address City/State/[place] [address] (ABNORMAL) Differential, Automated (03/10/2022 5:45 AM EDT) [facility] gist Method Time Signature Neutrophils % 58.5 % [facility] LABORATORY Neutr Abs (ANC) 4.21 1.70 - [facility] 6.10 [facility] x10(3)/[facility] LABORATORY Lymphocytes % 17.8 % [facility] LABORATORY Lymphocytes Abs 1.3 0.9 - 3.2 [facility] x10(3)/[facility] LABORATORY Monocytes % 13.5 % [facility] LABORATORY Monocyte Abs 1.0 (H) 0.3 - 0.9 [facility] x10(3)/[facility] LABORATORY Eosinophils % 5.3 % [facility] LABORATORY Eosinophils Abs 0.4 0.0 - 0.4 [facility] x10(3)/[facility] LABORATORY Basophils % 0.6 % [facility] LABORATORY Basophils Abs 0.0 0.0 - 0.1 [facility] x10(3)/[facility] LABORATORY Immature Gran % 4.30 % [facility] LABORATORY Comment: Immature granulocytes(IG's)percentage an d absolute count will include metamyelocytes, myelocytes, and promyelo cytes. Blood smears from CBCs yielding IG's will be scanned manually for concor dance. If this scan disagrees with the automated IG or if promyelocytes are not ed, a manual differential will be performed. Gemini Gran Abs 0.31 (H) 0.00 - 0.04 x10(3)/[facility] [place] LABORATORY Specimen Anatomical Collection Method Collection Time Receive d Time (Source) Location / / Volume Laterality Blood 03/10/2022 5:45 AM 6:05 EDT AM EDT Resulting Agency Comment Spec In Lab Nancy Chahal MD HEMATOLOGY ORDERABLES Performing Organization Address City/State/[place] [address] (ABNORMAL) Hemogram (03/10/2022 5:45 AM EDT) Analysis Performed At Patho logist Time Signature WBC 7.2 4.0 - 9.5 [facility] x10(3)/[facility] LABORATORY RBC 3.13 (L) 4.58 - [facility] 5.54 [facility] x10(6)/[facility] LABORATORY Hemoglobin 9.1 (L) 13.7 - [facility] 16.5 g/dL [facility] LABORATORY Hematocrit 27.3 (L) 40.5 - [facility] 48.5 % [facility] LABORATORY MCV 87.2 82.9 - [facility].1 fL [facility] LABORATORY MCH 29.1 27.5 - [facility] 32.1 pg [facility] LABORATORY MCHC 33.3 32.0 - [facility] 35.7 g/dL [facility] LABORATORY Platelets 256 145 - 357 [facility] x10(3)/[facility] LABORATORY RDWSD 50.6 (H) 36.0 - [facility] 45.0 [facility] LABORATORY RDWCV 15.9 (H) 11.4 - [facility] 13.8 % [facility] LABORATORY MPV 8.5 7.6 - 12.9 [facility] LABORATORY nRBC % Auto 0.0 % [facility] LABORATORY nRBC Abs Auto 0.000 0.000 - [facility] 0.000 [facility] x10(3)/[facility] LABORATORY Specimen Anatomical Collection Method Collection Time Receive d Time (Source) Location / / Volume Laterality Blood 03/10/2022 5:45 AM 2 6:05 EDT AM EDT Resulting Agency Comment Spec In Lab Nancy Chahal MD HEMATOLOGY ORDERABLES Performing Organization Address City/State/ZIP Code Phon e Number [address] (ABNORMAL) Phosphorus (03/10/2022 5:45 AM EDT) P athologist Signature Phosphorus 4.6 (H) 2.5 - 4.5 [facility] mg/dL [facility] LABORATORY Specimen Anatomical Collection Method Collection Time Receive d Time (Source) Location / / Volume Laterality Blood 03/10/2022 5:45 AM 2 6:05 EDT AM EDT Resulting Agency Comment Spec In Lab Floridalma Sandoval MD CHEMISTRY ORDERABLES Performing Organization Address City/State/ZIP Code Phon e Number [address] Magnesium (03/10/2022 5:45 AM EDT) P athologist Signature Magnesium 0.77 0.69 - 1.07 [facility] mmol/L [facility] LABORATORY Specimen Anatomical Collection Method Collection Time Receive d Time (Source) Location / / Volume Laterality Blood 03/10/2022 5:45 AM 2 6:05 EDT AM EDT Resulting Agency Comment Spec In Lab Floridalma Sandoval MD CHEMISTRY ORDERABLES Performing Organization Address City/State/[place] [address] Basic Metabolic Panel (non-fasting) (03/10/2022 5:45 AM EDT) P athologist Signature Glucose Lvl 95 65 - 199 [facility] mg/dL [facility] LABORATORY Comment: Diabetes: >=200 mg/dL plus symp toms BUN 20 10 - 20 mg/dL [facility] LABORATORY Creatinine 0.85 0.80 - 1.50 mg/dL [facility] LABORATORY Sodium 142 135 - 145 mmol/L [facility] LABORATORY Potassium 4.0 3.5 - 5.0 mmol/L [facility] LABORATORY Comment: Please note: ??Patients with WBC >100,00 0 may have falsely elevated Potassium levels. ??For accurate Potassium quantif ication in these patients send serum separator tube (gold top) for subsequent determinations. ??Contact the Clinical Chemistry Laboratory if there are any qu estions. Chloride 103 98 - 107 mmol/L [facility] LABORATORY CO2 25 22 - 31 mmol/L [facility] LABORATORY Anion Gap 14 5 - 15 mmol/L [facility] LABORATORY Calcium 9.1 8.5 - 10.5 mg/dL [facility] LABORATORY Estimated GFR 120 >=60 mL/min/1.73 m?? [facility] LABORATORY Comment: This patient's estimated [...] Sandoval MD CHEMISTRY ORDERABLES Performing Organization Address City/[facility]/[place] [address] Anaerobic Culture (03/05/2022 11:05 AM EDT) [employer] Method Time Signature Anaerobic No anaerobic [facility] Culture organisms [facility] LABORATORY Specimen Anatomical Collection Method Collection Time Receive d Time (Source) Location / / Volume Laterality Fluid 03/05/2022 11:05 03/05/2022 AM EDT 12:02 PM EDT Comment: Fluid from left thigh Resulting Agency Comment Spec In Lab Elaine Dos Santos MD MICROBIOLOGY - GENERAL ORDER JT Performing Organization Address City/[facility]/[place] [address] (ABNORMAL) Body Fluid Culture, Aerobic (03/05/2022 11:05 AM EDT) Component Value Ref Test Analysis Performed At [employer] Range Method Time Signature Body Fluid Moderate Staphylococcus aureus, MRSA [facility] Culture Many Pseudomonas aeruginosa [facility] LABORATORY Gram Stain Cytocentrifuge Gram Stain performed [facility] Neutrophils seen [employer] Rare Gram Positive Cocci seen [facility] Rare Gram Negative Rods seen [facility] () LABORATORY Organism Staphylococcus [facility] aureus, MRSA (A) [facility] LABORATORY Organism Pseudomonas [facility] aeruginosa (A) [facility] LABORATORY Organism Gram Positive [facility] Cocci (A) [facility] LABORATORY Organism Gram Negative [facility] Rods (A) [facility] LABORATORY Specimen Anatomical Collection Method Collection [...] Comment: Gentamicin is not a ppropriate for [place]-therapy. Staphylococcus aureus, mrsa Linezolid VITEK 2 METHOD [...] Organization Address City/State/[place] [address] (ABNORMAL) Basic Metabolic Panel (non-fasting) (03/04/2022 12:54 AM EDT) P athologist Signature Glucose Lvl 97 65 - 199 [facility] mg/dL [facility] LABORATORY Comment: Diabetes: >=200 mg/dL plus symp toms BUN 23 (H) 10 - 20 mg/dL [facility] LABORATORY Creatinine 1.23 0.80 - 1.50 mg/dL [facility] LABORATORY Sodium 141 135 - 145 mmol/L [facility] LABORATORY Potassium 3.7 3.5 - 5.0 mmol/L [facility] LABORATORY Comment: Please note: ??Patients with WBC >100,00 0 may have falsely elevated Potassium levels. ??For accurate Potassium quantif ication in these patients send serum separator tube (gold top) for subsequent determinations. ??Contact the Clinical Chemistry Laboratory if there are any qu estions. Chloride 101 98 - 107 mmol/L [facility] LABORATORY CO2 25 22 - 31 mmol/L [facility] LABORATORY Anion Gap 15 5 - 15 mmol/L [facility] LABORATORY Calcium 8.7 8.5 - 10.5 mg/dL [facility] LABORATORY Estimated GFR 81 >=60 mL/min/1.73 m?? [facility] LABORATORY Comment: This patient's estimated [...] Organization Address City/State/[place] [address] PICC Line: Contact Vascular Access Page [phone] Extremity to exclude: DO NOT use LEFT Arm; Is PICC procedure required PRIOR to patients discharge? Yes (03/03/2022 2:46 PM EDT) Narrative Carlita Malik RN - 03/03/2022 2:46 PM E Carlita Edge RN ? 03/03/2022 ??2:49 PM PICC/Midline Insertion [...] the planned procedu re. Hand Hygiene: The senior regulatory affairs specialist did perform hand hygiene pr ior to line insertion. Catheter type: PICC Lot number: [id number] Procedure Technique: Skin was prepped with chlorhexidine. [...] who have questions please contact the health memory care program director that requested your imaging first. ? Electronically signed by: Danielle Figueroa MD, [facility] ([phone]), at 03/03/2022 2:49 PM Narrative 03/03/2022 2:49 [...] ho have questions please contact the health memory care program director that requested your imaging first. Electronically signed by: Danielle Figueroa MD, [facility] ([phone]), at 03/03/2022 2:49 PM Jayme Armstrong MD IMG FLUORO ORDERABLES (ABNORMAL) Differential, Automated (03/03/2022 4:34 AM EDT) [facility] Method Time Signature Neutrophils % 49.2 % [facility] LABORATORY Neutr Abs (ANC) 3.20 1.70 - [facility] 6.10 [facility] x10(3)/[facility] LABORATORY Lymphocytes % 23.5 % [facility] Lymphocytes Abs 1.5 0.9 - 3.2 [facility] x10(3)/[facility] LABORATORY Monocytes % 12.9 % [facility] LABORATORY Monocyte Abs 0.8 0.3 - 0.9 [facility] x10(3)/[facility] LABORATORY Eosinophils % 10.4 % [facility] LABORATORY Eosinophils Abs 0.7 (H) 0.0 - 0.4 [facility] x10(3)/[facility] LABORATORY Basophils % 0.8 % [facility] LABORATORY Basophils Abs 0.0 0.0 - 0.1 [facility] x10(3)/[facility] LABORATORY Immature Gran % 3.20 % [facility] LABORATORY Comment: Immature granulocytes(IG's)percentage an d absolute count will include metamyelocytes, myelocytes, and promyelo cytes. Blood smears from CBCs yielding IG's will be scanned manually for concor dance. If this scan disagrees with the automated IG or if promyelocytes are not ed, a manual differential will be performed. Gemini Gran Abs 0.21 (H) 0.00 - 0.04 x10(3)/[facility] [place] LABORATORY Specimen Anatomical Collection Method Collection Time Receive d Time (Source) Location / / Volume Laterality Blood 03/03/2022 4:34 AM 2 4:42 EDT AM EDT Resulting Agency Comment Spec In Lab Collette Valetne MD HEMATOLOGY ORDERABLES Performing Organization Address City/State/[place] [address] (ABNORMAL) Hemogram (03/03/2022 4:34 AM EDT) Analysis Performed At Patho logist Time Signature WBC 6.5 4.0 - 9.[address] [facility] x10(3)/[facility] LABORATORY RBC 3.12 (L) 4.58 - [facility] 5.54 [facility] x10(6)/[facility] LABORATORY Hemoglobin 9.1 (L) 13.7 - [facility] 16.5 g/dL [facility] LABORATORY Hematocrit 26.8 (L) 40.5 - [facility] 48.5 % [facility] LABORATORY MCV 85.9 82.9 - [facility] 93.1 [facility] LABORATORY MCH 29.2 27.5 - [facility] 32.1 pg [facility] LABORATORY MCHC 34.0 32.0 - [facility] 35.7 g/dL [facility] LABORATORY Platelets 276 145 - 357 [facility] x10(3)/[facility] LABORATORY RDWSD 50.6 (H) 36.0 - [facility] 45.0 [facility] LABORATORY RDWCV 16.1 (H) 11.4 - [facility] 13.8 % [facility] LABORATORY MPV 7.8 7.6 - 12.9 [facility] nRBC % Auto 0.0 % [facility] LABORATORY nRBC Abs Auto 0.000 0.000 - [facility] 0.000 [facility] x10(3)/[facility] LABORATORY Specimen Anatomical Collection Method Collection Time Receive d Time (Source) Location / / Volume Laterality Blood 03/03/2022 4:34 AM 2 4:42 EDT AM EDT Resulting Agency Comment Spec In Lab Collette Valente MD HEMATOLOGY ORDERABLES Performing Organization Address City/State/ZIP Code Ph[place] [address] Magnesium (03/03/2022 4:34 AM EDT) athologist Signature Magnesium 0.80 0.69 - 1.07 [facility] mmol/L [facility] LABORATORY Specimen Anatomical Collection Method Collection Time Receive d Time (Source) Location / / Volume Laterality Blood 03/03/2022 4:34 AM 2 4:42 EDT AM EDT Resulting Agency Comment Spec In Lab Jayme Armstrong MD CHEMISTRY ORDERABLES Performing Organization Address City/State/ZIP Code Phon e Number [address] (ABNORMAL) Phosphorus (03/03/2022 4:34 AM EDT) athologist Signature Phosphorus 5.1 (H) 2.5 - 4.5 [facility] mg/dL [facility] LABORATORY Specimen Anatomical Collection Method Collection Time Receive d Time (Source) Location / / Volume Laterality Blood 03/03/2022 4:34 AM 2 4:42 EDT AM EDT Resulting Agency Comment Spec In Lab Jayme Armstrong MD CHEMISTRY ORDERABLES Performing Organization Address City/State/[place] [address] (ABNORMAL) Basic Metabolic Panel (non-fasting) (03/03/2022 4:34 AM EDT) athologist [facility] Glucose Lvl 105 65 - 199 [facility] mg/dL [facility] LABORATORY Comment: Diabetes: >=200 mg/dL plus symp toms BUN 28 (H) 10 - 20 mg/dL [facility] LABORATORY Creatinine 1.27 0.80 - 1.50 mg/dL [facility] LABORATORY Sodium 142 135 - 145 mmol/L [facility] LABORATORY Potassium 3.8 3.5 - 5.0 mmol/L [facility] LABORATORY Comment: Please note: ??Patients with WBC >100,00 0 may have falsely elevated Potassium levels. ??For accurate Potassium quantif ication in these patients send serum separator tube (gold top) for subsequent determinations. ??Contact the Clinical Chemistry Laboratory if there are any qu estions. Chloride 104 98 - 107 mmol/L [facility] LABORATORY CO2 25 22 - 31 mmol/L [facility] LABORATORY Anion Gap 13 5 - 15 mmol/L [facility] LABORATORY Calcium 9.0 8.5 - 10.5 mg/dL [facility] LABORATORY Estimated GFR 78 >=60 mL/min/1.73 m?? [facility] LABORATORY Comment: This patient's estimated [...] Organization Address City/State/[place] [address] Albumin Level (03/02/2022 4:23 AM EDT) athologist Signature Albumin 3.3 3.2 - 5.2 [facility] g/dL [facility] LABORATORY Specimen Anatomical Collection Method Collection Time Receive d Time (Source) Location / / Volume Laterality Blood Venous Draw / 03/02/2022 4:23 AM 03/02/20 4:53 Unknown EDT AM EDT Resulting Agency Comment Spec In Lab Nancy Chahal MD CHEMISTRY ORDERABLES Performing Organization Address City/State/[place] [address] (ABNORMAL) Basic Metabolic Panel (non-fasting) (03/02/2022 4:23 AM EDT) P athologist Signature Glucose Lvl 99 65 - 199 [facility] mg/dL [facility] LABORATORY Comment: Diabetes: >=200 mg/dL plus symp toms BUN 32 (H) 10 - 20 mg/dL [facility] LABORATORY Creatinine 1.33 0.80 - 1.50 mg/dL [facility] LABORATORY Sodium 138 135 - 145 mmol/L [facility] LABORATORY Potassium 4.1 3.5 - 5.0 mmol/L [facility] LABORATORY Comment: Please note: ??Patients with WBC >100,00 0 may have falsely elevated Potassium levels. ??For accurate Potassium quantif ication in these patients send serum separator tube (gold top) for subsequent determinations. ??Contact the Clinical Chemistry Laboratory if there are any qu estions. Chloride 100 98 - 107 mmol/L [facility] LABORATORY CO2 25 22 - 31 mmol/L [facility] LABORATORY Anion Gap 13 5 - 15 mmol/L [facility] LABORATORY Calcium 9.0 8.5 - 10.5 mg/dL [facility] LABORATORY Estimated GFR 74 >=60 mL/min/1.73 m?? [facility] LABORATORY Comment: This patient's estimated [...] Organization Address City/State/[place] [address] [facility] [address] (ABNORMAL) Differential, Automated (03/01/2022 2:00 AM EDT) [facility] Method Time Signature Neutrophils % 65.1 % [facility] LABORATORY Neutr Abs (ANC) 6.08 1.70 - [facility] 6.10 [facility] x10(3)/[facility] LABORATORY Lymphocytes % 15.0 % [facility] LABORATORY Lymphocytes Abs 1.4 0.9 - 3.2 [facility] x10(3)/[facility] LABORATORY Monocytes % 12.0 % [facility] LABORATORY Monocyte Abs 1.1 (H) 0.3 - 0.9 [facility] x10(3)/[facility] LABORATORY Eosinophils % 5.4 % [facility] LABORATORY Eosinophils Abs 0.5 (H) 0.0 - 0.4 [facility] x10(3)/[facility] LABORATORY Basophils % 0.6 % [facility] LABORATORY Basophils Abs 0.1 0.0 - 0.1 [facility] x10(3)/[facility] LABORATORY Immature Gran % 1.90 % [facility] LABORATORY Comment: Immature granulocytes(IG's)percentage an d absolute count will include metamyelocytes, myelocytes, and promyelo cytes. Blood smears from CBCs yielding IG's will be scanned manually for concor dance. If this scan disagrees with the automated IG or if promyelocytes are not ed, a manual differential will be performed. Gemini Gran Abs 0.18 (H) 0.00 - 0.04 x10(3)/[facility] [place] LABORATORY Specimen Anatomical Collection Method Collection Time Receive d Time (Source) Location / / Volume Laterality Blood 03/01/2022 2:00 AM 2:03 EDT AM EDT Resulting Agency Comment Spec In Lab Veto Hidalgo MD HEMATOLOGY ORDERABLES Performing Organization Address City/[facility]/[place] [address] (ABNORMAL) Hemogram (03/01/2022 2:00 AM EDT) Analysis Performed At Patho logist Time Signature WBC 9.3 4.0 - 9.5 [facility] x10(3)/[facility] LABORATORY RBC 2.92 (L) 4.58 - [facility] [place] 5.54 [facility] x10(6)/[facility] LABORATORY Hemoglobin 8.5 (L) 13.7 [facility] 16.5 g/dL [facility] LABORATORY Hematocrit 25.5 (L) 40.5 - [facility] 48.5 % [facility] LABORATORY MCV 87.3 82.9 - [facility] 93.1 [facility] LABORATORY MCH 29.1 27.5 - [facility] pg [facility] LABORATORY MCHC 33.3 32.0 - [facility] 35.7 g/dL [facility] LABORATORY Platelets 288 145 - 357 [facility] x10(3)/[facility] LABORATORY RDWSD 52.2 (H) 36.0 - [facility] 45.0 [facility] LABORATORY RDWCV 16.4 (H) 11.4 [facility] 13.8 % [facility] LABORATORY MPV 8.0 7.6 - 12.9 [facility] LABORATORY nRBC % Auto 0.0 % [facility] LABORATORY nRBC Abs Auto 0.000 0.000 - [facility] 0.000 [facility] x10(3)/[facility] LABORATORY Specimen Anatomical Collection Method Collection Time Receive d Time (Source) Location / / Volume Laterality Blood 03/01/2022 2:00 AM 2:03 EDT AM EDT Resulting Agency Comment Spec In Lab Veto Hidalgo MD HEMATOLOGY ORDERABLES Performing Organization Address City/State/[place] [address] Magnesium (03/01/2022 2:00 AM EDT) P athologist Signature Magnesium 0.77 0.69 - 1.07 [facility] mmol/L [facility] LABORATORY Specimen Anatomical Collection Method Collection Time Receive d Time (Source) Location / / Volume Laterality Blood 03/01/2022 2:00 AM 2 2:03 EDT AM EDT Resulting Agency Comment Spec In Lab Jayme Armstrong MD CHEMISTRY ORDERABLES Performing Organization Address City/[facility]/ZIP Code Phon e Number [address] (ABNORMAL) Phosphorus (03/01/2022 2:00 AM EDT) P athologist Signature Phosphorus 4.8 (H) 2.5 - 4.5 [facility] mg/dL [facility] LABORATORY Specimen Anatomical Collection Method Collection Time Receive d Time (Source) Location / / Volume Laterality Blood 03/01/2022 2:00 AM 2 2:03 EDT AM EDT Resulting Agency Comment Spec In Lab Jayme Armstrong MD CHEMISTRY ORDERABLES Performing Organization Address City/[facility] [place] [address] (ABNORMAL) Basic Metabolic Panel (non-fasting) (03/01/2022 2:00 AM EDT) athologist Signature Glucose Lvl 106 65 - 199 [facility] mg/dL [facility] LABORATORY Comment: Diabetes: >=200 mg/dL plus symp toms BUN 38 (H) 10 - 20 mg/dL [facility] LABORATORY Creatinine 1.73 (H) 0.80 - 1.50 mg/dL [facility] LABORATORY Sodium 140 135 - 145 mmol/L [facility] LABORATORY Potassium 4.3 3.5 - 5.0 mmol/L [facility] LABORATORY Comment: Please note: ??Patients with WBC >100,00 0 may have falsely elevated Potassium levels. ??For accurate Potassium quantif ication in these patients send serum separator tube (gold top) for subsequent determinations. ??Contact the Clinical Chemistry Laboratory if there are any qu estions. Chloride 102 98 - 107 mmol/L [facility] LABORATORY CO2 24 22 - 31 mmol/L [facility] LABORATORY Anion Gap 14 5 - 15 mmol/L [facility] LABORATORY Calcium 9.2 8.5 - 10.5 mg/dL [facility] LABORATORY Estimated GFR 54 (L) >=60 mL/min/1.73 m?? [facility] LABORATORY Comment: This patient's estimated [...] Organization Address City/State/[place] [address] (ABNORMAL) Ferritin (03/01/2022 2:00 AM EDT) P athologist Signature Ferritin 693 (H) 30 - 400 [facility] ng/mL [facility] LABORATORY Comment: Pediatric reference ranges not verified at [facility] interpret with caution. Reference ranges for females [...] Organization Address City/State/[place] [address] (ABNORMAL) Iron and TIBC (03/01/2022 2:00 AM EDT) Analysis Performed At Patho logist Time Signature Iron 21 (L) 45 - [address] [facility] mcg/dL [facility] LABORATORY TIBC 185 (L) 250 - 450 [facility] mcg/dL [facility] LABORATORY Iron Saturation 11 (L) 20 - 50 % [facility] LABORATORY Specimen Anatomical Collection Method Collection Time Receive d Time (Source) Location / / Volume Laterality Blood 03/01/2022 2:00 AM 2 2:03 EDT AM EDT Resulting Agency Comment Spec In Lab Allison Kelly MD CHEMISTRY ORDERABLES Performing Organization Address City/State/[place] [address] (ABNORMAL) Basic Metabolic Panel (non-fasting) (02/28/2022 3:43 AM EDT) P athologist Signature Glucose Lvl 110 65 - 199 [facility] mg/dL [facility] LABORATORY Comment: Diabetes: >=200 mg/dL plus symp toms BUN 44 (H) 10 - 20 mg/dL [facility] LABORATORY Creatinine 1.92 (H) 0.80 - 1.50 mg/dL [facility] LABORATORY Sodium 138 135 - 145 mmol/L [facility] LABORATORY Potassium 4.3 3.5 - 5.0 mmol/L [facility] LABORATORY Comment: Please note: ??Patients with WBC >100,00 0 may have falsely elevated Potassium levels. ??For accurate Potassium quantif ication in these patients send serum separator tube (gold top) for subsequent determinations. ??Contact the Clinical Chemistry Laboratory if there are any qu estions. Chloride 103 98 - 107 mmol/L [facility] LABORATORY CO2 24 22 - 31 mmol/L [facility] LABORATORY Anion Gap 11 5 - 15 mmol/L [facility] LABORATORY Calcium 9.1 8.5 - 10.5 mg/dL [facility] LABORATORY Estimated GFR 47 (L) >=60 mL/min/1.73 m?? [facility] LABORATORY Comment: This patient's estimated [...] Organization Address City/State/[place] [address] (ABNORMAL) Differential, Automated (02/27/2022 4:36 AM EDT) athologist Signature Neutrophils % 55.6 % [facility] LABORATORY Neutr Abs (ANC) 3.68 1.70 - [facility] 6.10 [facility] x10(3)[facility] LABORATORY Lymphocytes % 21.3 % [facility] LABORATORY Lymphocytes Abs 1.4 0.9 - 3.2 [facility] x10(3)/[facility] LABORATORY Monocytes % 11.8 % [facility] LABORATORY Monocyte Abs 0.8 0.3 - 0.9 [facility] x10(3)/[facility] LABORATORY Eosinophils % 5.9 % [facility] LABORATORY Eosinophils Abs 0.4 0.0 - 0.4 [facility] x10(3)/[facility] LABORATORY Basophils % 0.9 % [facility] LABORATORY Basophils Abs 0.1 0.0 - 0.1 [facility] x10(3)/[facility] LABORATORY Immature Gran % 4.50 % [facility] LABORATORY Comment: Immature granulocytes(IG's)percentage an d absolute count will include metamyelocytes, myelocytes, and promyelo cytes. Blood smears from CBCs yielding IG's will be scanned manually for concor dance. If this scan disagrees with the automated IG or if promyelocytes are not ed, a manual differential will be performed. Gemini Gran Abs 0.30 (H) 0.00 - 0.04 x10(3)/[facility] [place] LABORATORY Specimen Anatomical Collection Method Collection Time Receive d Time (Source) Location / / Volume Laterality Blood 02/27/2022 4:36 AM 4:48 EDT AM EDT Resulting Agency Comment Spec In Lab Veto Hidalgo MD HEMATOLOGY ORDERABLES Performing Organization Address City/State/[place] [address] (ABNORMAL) Hemogram (02/27/2022 4:36 AM EDT) Analysis Performed At Patho logist Time Signature WBC 6.6 4.0 - 9.5 [facility] x10(3)/[facility] LABORATORY RBC 2.74 (L) 4.58 - [facility] 5.54 [facility] x10(6)/[facility] LABORATORY Hemoglobin 8.0 (L) 13.7 - [facility] g/dL [facility] LABORATORY Hematocrit 24.7 (L) 40.5 - [facility] 48.5 % [facility] LABORATORY MCV 90.1 82.9 - [facility] 93.1 [facility] LABORATORY MCH 29.2 27.5 - [facility] 32.1 pg [facility] LABORATORY MCHC 32.4 32.0 - [facility] 35.7 g/dL [facility] LABORATORY Platelets 267 145 - 357 [facility] x10(3)/[facility] LABORATORY RDWSD 56.6 (H) 36.0 - [facility] 45.0 [facility] LABORATORY RDWCV 17.2 (H) 11.4 - [facility] 13.8 % [facility] LABORATORY MPV 8.1 7.6 - 12.9 [facility] LABORATORY nRBC % Auto 0.0 % [facility] LABORATORY nRBC Abs Auto 0.000 0.000 - [facility] 0.000 [facility] x10(3)/[facility] LABORATORY Specimen Anatomical Collection Method Collection Time Receive d Time (Source) Location / / Volume Laterality Blood 02/27/2022 4:36 AM 2 4:48 EDT AM EDT Resulting Agency Comment Spec In Lab Veto Hidalgo MD HEMATOLOGY ORDERABLES Performing Organization Address City/State/ZIP Code Phon e Number [address] Magnesium (02/27/2022 4:36 AM EDT) P athologist Signature Magnesium 0.74 0.69 - 1.[address] [facility] [facility] mmol/L [facility] LABORATORY Specimen Anatomical Collection Method Collection Time Receive d Time (Source) Location / / Volume Laterality Blood 02/27/2022 4:36 AM 2 4:48 EDT AM EDT Resulting Agency Comment Spec In Lab Jayme Armstrong MD CHEMISTRY ORDERABLES Performing Organization Address City/[facility]/[place] [address] Phosphorus (02/27/2022 4:36 AM EDT) athologist Signature Phosphorus 4.5 2.5 - 4.5 [facility]/dL [facility] LABORATORY Specimen Anatomical Collection Method Collection Time Receive d Time (Source) Location / / Volume Laterality Blood 02/27/2022 4:36 AM 2 4:48 EDT AM EDT Resulting Agency Comment Spec In Lab Jayme Armstrong MD CHEMISTRY ORDERABLES Performing Organization Address City/[facility]/[place] [address] (ABNORMAL) Basic Metabolic Panel (non-fasting) (02/27/2022 4:36 AM EDT) P athologist Signature Glucose Lvl 108 65 - [address] [facility] mg/dL [facility] LABORATORY Comment: Diabetes: >=200 mg/dL plus symp toms BUN 57 (H) 10 - 20 mg/dL [facility] LABORATORY Creatinine 2.29 (H) 0.80 - 1.50 mg/dL [facility] LABORATORY Sodium 142 135 - 145 mmol/L [facility] LABORATORY Potassium 4.6 3.5 - 5.0 mmol/L [facility] LABORATORY Comment: Please note: ??Patients with WBC >100,00 0 may have falsely elevated Potassium levels. ??For accurate Potassium quantif ication in these patients send serum separator tube (gold top) for subsequent determinations. ??Contact the Clinical Chemistry Laboratory if there are any qu estions. Chloride 105 98 - 107 mmol/L [facility] LABORATORY CO2 24 22 - 31 mmol/L [facility] LABORATORY Anion Gap 13 5 - 15 mmol/L [facility] LABORATORY Calcium 8.7 8.5 - 10.5 mg/dL [facility] LABORATORY Estimated GFR 38 (L) >=60 mL/min/1.73 m?? [facility] LABORATORY Comment: This patient's estimated [...] Organization Address City/State/[place] [address] (ABNORMAL) Basic Metabolic Panel (non-fasting) (02/26/2022 5:30 AM EDT) P athologist Signature Glucose Lvl 101 65 - 199 [facility] mg/dL [facility] LABORATORY Comment: Diabetes: >=200 mg/dL plus symp toms BUN 60 (H) 10 - 20 mg/dL [facility] LABORATORY Creatinine 2.39 (H) 0.80 - 1.50 mg/dL [facility] LABORATORY Sodium 142 135 - 145 mmol/L [facility] LABORATORY Potassium 4.4 3.5 - 5.0 mmol/L [facility] LABORATORY Comment: Please note: ??Patients with WBC >100,00 0 may have falsely elevated Potassium levels. ??For accurate Potassium quantif ication in these patients send serum separator tube (gold top) for subsequent determinations. ??Contact the Clinical Chemistry Laboratory if there are any qu estions. Chloride 105 98 - 107 mmol/L [facility] LABORATORY CO2 23 22 - 31 mmol/L [facility] LABORATORY Anion Gap 14 5 - 15 mmol/L [facility] LABORATORY Calcium 8.7 8.5 - 10.5 mg/dL [facility] LABORATORY Estimated GFR 36 (L) >=60 mL/min/1.73 m?? [facility] LABORATORY Comment: This patient's estimated [...] Organization Address City/State/[place] [address] PTH (02/25/2022 5:30 AM EDT) athologist Signature PTH 65 15 - 65 [facility] pg/mL [facility] LABORATORY Specimen Anatomical Collection Method Collection Time Receive d Time (Source) Location / / Volume Laterality Blood Venous Draw / 02/25/2022 5:30 AM 02/26/20 22 Unknown EDT 12:09 PM EDT Resulting Agency Comment Spec In Lab Tex Robles MD CHEMISTRY ORDERABLES Performing Organization Address City/State/ZIP Code Phon e Number [place] [id number] HOSPITAL LABORATORY Drive (ABNORMAL) Differential, Automated (02/25/2022 5:30 AM EDT) Patholo gist Method Time Signature Neutrophils % 67.3 % [facility] LABORATORY Neutr Abs (ANC) 6.38 (H) 1.70 - [facility] 6.10 [facility] x10(3)/[facility] LABORATORY Lymphocytes % 18.9 % [facility] LABORATORY Lymphocytes Abs 1.8 0.9 - 3.2 [facility] x10(3)/[facility] LABORATORY Monocytes % 8.7 % [facility] LABORATORY Monocyte Abs 0.8 0.3 - 0.9 [facility] x10(3)/[facility] LABORATORY Eosinophils % 1.8 % [facility] LABORATORY Eosinophils Abs 0.2 0.0 - 0.4 [facility] x10(3)/[facility] LABORATORY Basophils % 0.5 % [facility] LABORATORY Basophils Abs 0.0 0.0 - 0.1 [facility] x10(3)/[facility] LABORATORY Immature Gran % 2.80 % [facility] LABORATORY Comment: Immature granulocytes(IG's)percentage an d absolute count will include metamyelocytes, myelocytes, and promyelo cytes. Blood smears from CBCs yielding IG's will be scanned manually for concor dance. If this scan disagrees with the automated IG or if promyelocytes are not ed, a manual differential will be performed. Gemini Gran Abs 0.27 (H) 0.00 - 0.04 x10(3)/[facility] [place] LABORATORY Specimen Anatomical Collection Method Collection Time Receive d Time (Source) Location / / Volume Laterality Blood 02/25/2022 5:30 AM 2 6:31 EDT AM EDT Resulting Agency Comment Spec In Lab Nancy Chahal MD HEMATOLOGY ORDERABLES Performing Organization Address City/State/[place] [address] (ABNORMAL) Hemogram (02/25/2022 5:30 AM EDT) Analysis Performed At Patho logist Time Signature WBC 9.5 4.0 - 9.[address] [facility] x10(3)/[facility] LABORATORY RBC 2.63 (L) 4.58 - [facility] 5.54 [facility] x10(6)/[facility] LABORATORY Hemoglobin 7.5 (L) 13.7 - [facility] 16.5 g/dL [facility] LABORATORY Hematocrit 23.5 (L) 40.5 - [facility] 48.5 % [facility] LABORATORY MCV 89.4 82.9 - [facility] 93.1 [facility] LABORATORY MCH 28.5 27.5 - [facility] 32.1 pg [facility] LABORATORY MCHC 31.9 (L) 32.0 - [facility] 35.7 g/dL [facility] LABORATORY Platelets 299 145 - 357 [facility] x10(3)/[facility] LABORATORY RDWSD 55.2 (H) 36.0 - [facility] 45.0 [facility] LABORATORY RDWCV 17.1 (H) 11.4 - [facility] 13.8 % [facility] LABORATORY MPV 8.3 7.6 - 12.9 [facility] LABORATORY nRBC % Auto 0.0 % [facility] LABORATORY nRBC Abs Auto 0.000 0.000 - [facility] 0.000 [facility] x10(3)/[facility] LABORATORY Specimen Anatomical Collection Method Collection Time Receive d Time (Source) Location / / Volume Laterality Blood 02/25/2022 5:30 AM 2 6:31 EDT AM EDT Resulting Agency Comment Spec In Lab Nancy Chahal MD HEMATOLOGY ORDERABLES Performing Organization Address City/State/ZIP Code Phon e Number [address] Magnesium (02/25/2022 5:30 AM EDT) athologist Signature Magnesium 0.81 0.69 - 1.07 [facility] mmol/L [facility] LABORATORY Specimen Anatomical Collection Method Collection Time Receive d Time (Source) Location / / Volume Laterality Blood 02/25/2022 5:30 AM 2 6:31 EDT AM EDT Resulting Agency Comment Spec In Lab Jayme Armstrong MD CHEMISTRY ORDERABLES Performing Organization Address City/State/ZIP Code Phon e Number [address] (ABNORMAL) Phosphorus (02/25/2022 5:30 AM EDT) athologist Signature Phosphorus 4.9 (H) 2.5 - 4.5 [facility] mg/dL [facility] LABORATORY Specimen Anatomical Collection Method Collection Time Receive d Time (Source) Location / / Volume Laterality Blood 02/25/2022 5:30 AM 2 6:31 EDT AM EDT Resulting Agency Comment Spec In Lab Jayme Armstrong MD CHEMISTRY ORDERABLES Performing Organization Address City/State/[place] [address] (ABNORMAL) Basic Metabolic Panel (non-fasting) (02/25/2022 5:30 AM EDT) athologist Signature Glucose Lvl 104 65 - 199 [facility] mg/dL [facility] LABORATORY Comment: Diabetes: >=200 mg/dL plus symp toms BUN 65 (H) 10 - 20 mg/dL [facility] LABORATORY Creatinine 2.94 (H) 0.80 - 1.50 mg/dL [facility] LABORATORY Sodium 139 135 - 145 mmol/L [facility] LABORATORY Potassium 4.2 3.5 - 5.0 mmol/L [facility] LABORATORY Comment: Please note: ??Patients with WBC >100,00 0 may have falsely elevated Potassium levels. ??For accurate Potassium quantif ication in these patients send serum separator tube (gold top) for subsequent determinations. ??Contact the Clinical Chemistry Laboratory if there are any qu estions. Chloride 102 98 - 107 mmol/L [facility] LABORATORY CO2 23 22 - 31 mmol/L [facility] LABORATORY Anion Gap 14 5 - 15 mmol/L [facility] LABORATORY Calcium 8.4 (L) 8.5 - 10.5 mg/dL [facility] LABORATORY Estimated GFR 28 (L) >=60 mL/min/1.73 m?? [facility] LABORATORY Comment: This patient's estimated [...] Organization Address City/State/[place] [address] (ABNORMAL) Basic Metabolic Panel (non-fasting) (02/24/2022 5:45 AM EDT) P athologist Signature Glucose Lvl 102 65 - 199 [facility] mg/dL [facility] LABORATORY Comment: Diabetes: >=200 mg/dL plus symp toms BUN 61 (H) 10 - 20 mg/dL [facility] LABORATORY Creatinine 2.96 (H) 0.80 - 1.50 mg/dL [facility] LABORATORY Comment: result rechecked-sf Sodium 137 135 - 145 mmol/L [facility] LABORATORY Potassium 4.5 3.5 - 5.0 mmol/L [facility] LABORATORY Comment: Please note: ??Patients with WBC >100,00 0 may have falsely elevated Potassium levels. ??For accurate Potassium quantif ication in these patients send serum separator tube (gold top) for subsequent determinations. ??Contact the Clinical Chemistry Laboratory if there are any qu estions. Chloride 102 98 - 107 mmol/L [facility] LABORATORY CO2 22 22 - 31 mmol/L [facility] LABORATORY Anion Gap 13 5 - 15 mmol/L [facility] LABORATORY Calcium 8.3 (L) 8.5 - 10.5 mg/dL [facility] LABORATORY Estimated GFR 28 (L) >=60 mL/min/1.73 m?? [facility] LABORATORY Comment: This patient's estimated [...] Organization Address City/State/[place] [address] SCAN DOC: LAB (02/24/2022 12:00 AM EDT) Narrative This result has an attachment that is no t available. Unknown MEDIA MGR SCAN EXT ORDR/RSLT (ABNORMAL) Differential, Automated (02/23/2022 5:00 AM EDT) athologist Signature Neutrophils % 69.0 % [facility] LABORATORY Neutr Abs (ANC) 5.59 1.70 - [facility] 6.10 [facility] x10(3)/[facility] LABORATORY Lymphocytes % 12.8 % [facility] LABORATORY Lymphocytes Abs 1.0 0.9 - 3.2 [facility] x10(3)/[facility] LABORATORY Monocytes % 10.0 % [facility] LABORATORY Monocyte Abs 0.8 0.3 - 0.9 [facility] x10(3)/[facility] LABORATORY Eosinophils % 2.6 % [facility] LABORATORY Eosinophils Abs 0.2 0.0 - 0.4 [facility] x10(3)/[facility] LABORATORY Basophils % 0.7 % [facility] LABORATORY Basophils Abs 0.1 0.0 - 0.1 [facility] x10(3)/[facility] LABORATORY Immature Gran % 4.90 % [facility] LABORATORY Comment: Immature granulocytes(IG's)percentage an d absolute count will include metamyelocytes, myelocytes, and promyelo cytes. Blood smears from CBCs yielding IG's will be scanned manually for concor dance. If this scan disagrees with the automated IG or if promyelocytes are not ed, a manual differential will be performed. Gemini Gran Abs 0.40 (H) 0.00 - 0.04 x10(3)/[facility] [place] LABORATORY Specimen Anatomical Collection Method Collection Time Receive d Time (Source) Location / / Volume Laterality Blood 02/23/2022 5:00 AM 5:31 EDT AM EDT Resulting Agency Comment Spec In Lab Kaitlyn Rock MD HEMATOLOGY ORDERABLES Performing Organization Address City/State/[place] [address] (ABNORMAL) Hemogram (02/23/2022 5:00 AM EDT) Analysis Performed At Patho logist Time Signature WBC 8.1 4.0 - 9.5 [facility] x10(3)/[facility] LABORATORY RBC 2.50 (L) 4.58 - [facility] 5.54 [facility] x10(6)/[facility] LABORATORY Hemoglobin 7.0 (L) 13.7 [facility] 16.5 g/dL [facility] LABORATORY Hematocrit 22.4 (L) 40.5 - [facility] 48.5 % [facility] LABORATORY MCV 89.6 82.9 - [facility] 93.1 [facility] LABORATORY MCH 28.0 27.5 - [facility] 32.1 pg [facility] LABORATORY MCHC 31.3 (L) 32.0 - [facility] g/dL [facility] LABORATORY Platelets 300 145 - 357 [facility] x10(3)/[facility] LABORATORY RDWSD 57.0 (H) 36.0 - [facility] 45.0 [facility] LABORATORY RDWCV 17.5 (H) 11.4 - [facility] 13.8 % [facility] LABORATORY MPV 8.4 7.6 - 12.9 [facility] LABORATORY nRBC % Auto 0.0 % [facility] LABORATORY nRBC Abs Auto 0.000 0.000 - [facility] 0.000 [facility] x10(3)/[facility] LABORATORY Specimen Anatomical Collection Method Collection Time Receive d Time (Source) Location / / Volume Laterality Blood 02/23/2022 5:00 AM 5:31 EDT AM EDT Resulting Agency Comment Spec In Lab Kaitlyn Rock MD HEMATOLOGY ORDERABLES Performing Organization Address City/State/[place] [address] (ABNORMAL) Basic Metabolic Panel (non-fasting) (02/23/2022 5:00 AM EDT) P athologist Signature Glucose Lvl 113 65 - 199 [facility] mg/dL [facility] LABORATORY Comment: Diabetes: >=200 mg/dL plus symp toms BUN 59 (H) 10 - 20 mg/dL [facility] LABORATORY Creatinine 3.90 (H) 0.80 - 1.50 mg/dL [facility] LABORATORY Sodium 137 135 - 145 mmol/L [facility] LABORATORY Potassium 4.6 3.5 - 5.0 mmol/L [facility] LABORATORY Comment: Please note: ??Patients with WBC >100,00 0 may have falsely elevated Potassium levels. ??For accurate Potassium quantif ication in these patients send serum separator tube (gold top) for subsequent determinations. ??Contact the Clinical Chemistry Laboratory if there are any qu estions. Chloride 102 98 - 107 mmol/L [facility] LABORATORY CO2 24 22 - 31 mmol/L [facility] LABORATORY Anion Gap 11 5 - 15 mmol/L [facility] LABORATORY Calcium 8.3 (L) 8.5 - 10.5 mg/dL [facility] LABORATORY Estimated GFR 20 (L) >=60 mL/min/1.73 m?? [facility] LABORATORY Comment: This patient's estimated [...] Organization Address City/State/[place] [address] (ABNORMAL) Phosphorus (02/23/2022 5:00 AM EDT) P athologist Signature Phosphorus 6.2 (H) 2.5 - 4.5 [facility] mg/dL [facility] LABORATORY Specimen Anatomical Collection Method Collection Time Receive d Time (Source) Location / / Volume Laterality Blood 02/23/2022 5:00 AM 2 5:31 EDT AM EDT Resulting Agency Comment Spec In Lab Gela Novak MD CHEMISTRY ORDERABLES Performing Organization Address City/State/ZIP Code Phon e Number [address] Magnesium (02/23/2022 5:00 AM EDT) P athologist Signature Magnesium 0.93 0.69 - 1.07 [facility] mmol/L [facility] LABORATORY Specimen Anatomical Collection Method Collection Time Receive d Time (Source) Location / / Volume Laterality Blood 02/23/2022 5:00 AM 5:31 EDT AM EDT Resulting Agency Comment Spec In Lab Gela Novak MD CHEMISTRY ORDERABLES Performing Organization Address City/State/ZIP Code Phon e Number [address] (ABNORMAL) Differential, Automated (02/22/2022 1:08 AM EDT) Patholo gist Method Time Signature Neutrophils % 64.0 % [facility] LABORATORY Neutr Abs (ANC) 5.73 1.70 - [facility] 6.10 [facility] x10(3)/[facility] LABORATORY Lymphocytes % 15.0 % [facility] LABORATORY Lymphocytes Abs 1.3 0.9 - 3.2 [facility] x10(3)/[facility] LABORATORY Monocytes % 10.9 % [facility] LABORATORY Monocyte Abs 1.0 (H) 0.3 - 0.9 [facility] x10(3)/[facility] LABORATORY Eosinophils % 3.0 % [facility] LABORATORY Eosinophils Abs 0.3 0.0 - 0.4 [facility] x10(3)/[facility] LABORATORY Basophils % 0.6 % [facility] LABORATORY Basophils Abs 0.0 0.0 - 0.1 [facility] x10(3)/[facility] LABORATORY Immature Gran % 6.50 % [facility] LABORATORY Comment: Immature granulocytes(IG's)percentage an d absolute count will include metamyelocytes, myelocytes, and promyelo cytes. Blood smears from CBCs yielding IG's will be scanned manually for concor dance. If this scan disagrees with the automated IG or if promyelocytes are not ed, a manual differential will be performed. Gemini Gran Abs 0.58 (H) 0.00 - 0.04 x10(3)/[facility] [place] LABORATORY Specimen Anatomical Collection Method Collection Time Receive d Time (Source) Location / / Volume Laterality Blood 02/22/2022 1:08 AM 1:25 EDT AM EDT Resulting Agency Comment Spec In Lab Kaitlyn Rock MD HEMATOLOGY ORDERABLES Performing Organization Address City/State/[place] [address] (ABNORMAL) Hemogram (02/22/2022 1:08 AM EDT) Analysis Performed At Patho logist Time Signature WBC 8.9 4.0 - 9.5 [facility] x10(3)/[facility] LABORATORY RBC 2.56 (L) 4.58 - [facility] 5.54 [facility] x10(6)/[facility] LABORATORY Hemoglobin 7.3 (L) 13.7 - [facility] 16.[facility] g/dL [facility] LABORATORY Hematocrit 22.7 (L) 40.5 - [facility] 48.5 % [facility] LABORATORY MCV 88.7 82.9 - [facility] 93.1 [facility] LABORATORY MCH 28.5 27.5 - [facility] 32.1 pg [facility] LABORATORY MCHC 32.2 32.0 - [facility] 35.7 g/dL [facility] LABORATORY Platelets 317 145 - [address] [facility] x10(3)/[facility] LABORATORY RDWSD 58.2 (H) 36.0 - [facility] 45.0 [facility] LABORATORY RDWCV 17.9 (H) 11.4 - [facility] 13.8 % [facility] LABORATORY MPV 8.5 7.6 - 12.9 [facility] LABORATORY nRBC % Auto 0.0 % [facility] LABORATORY nRBC Abs Auto 0.000 0.000 - [facility] Spotie 0.000 [facility] x10(3)/[facility] LABORATORY Specimen Anatomical Collection Method Collection Time Receive d Time (Source) Location / / Volume Laterality Blood 02/22/2022 1:08 AM 2 1:25 EDT AM EDT Resulting Agency Comment Spec In Lab Kaitlyn Rock MD HEMATOLOGY ORDERABLES Performing Organization Address City/State/[place] [address] (ABNORMAL) Basic Metabolic Panel (non-fasting) (02/22/2022 1:08 AM EDT) athologist Signature Glucose Lvl 95 65 - 199 [facility] mg/dL [facility] LABORATORY Comment: Diabetes: >=200 mg/dL plus symp toms BUN 55 (H) 10 - 20 mg/dL [facility] LABORATORY Creatinine 3.91 (H) 0.80 - 1.50 mg/dL [facility] LABORATORY Sodium 137 135 - 145 mmol/L [facility] LABORATORY Potassium 5.1 (H) 3.5 - 5.0 mmol/L [facility] LABORATORY Comment: Please note: ??Patients with WBC >100,00 0 may have falsely elevated Potassium levels. ??For accurate Potassium quantif ication in these patients send serum separator tube (gold top) for subsequent determinations. ??Contact the Clinical Chemistry Laboratory if there are any qu estions. Chloride 101 98 - 107 mmol/L [facility] LABORATORY CO2 23 22 - 31 mmol/L [facility] LABORATORY Anion Gap 13 5 - 15 mmol/L [facility] LABORATORY Calcium 8.2 (L) 8.5 - 10.5 mg/dL [facility] LABORATORY Estimated GFR 20 (L) >=60 mL/min/1.73 m?? [facility] LABORATORY Comment: This patient's estimated [...] Organization Address City/State/ZIP Code Phon e Number [address] (ABNORMAL) Phosphorus (02/22/2022 1:08 AM EDT) P athologist Signature Phosphorus 5.9 (H) 2.5 - 4.5 [facility] mg/dL [facility] LABORATORY Specimen Anatomical Collection Method Collection Time Receive d Time (Source) Location / / Volume Laterality Blood 02/22/2022 1:08 AM 2 1:25 EDT AM EDT Resulting Agency Comment Spec In Lab Gela Novak MD CHEMISTRY ORDERABLES Performing Organization Address City/State/[place] [address] Magnesium (02/22/2022 1:08 AM EDT) P athologist Signature Magnesium 0.90 0.69 - 1.07 [facility] mmol/L [facility] LABORATORY Specimen Anatomical Collection Method Collection Time Receive d Time (Source) Location / / Volume Laterality Blood 02/22/2022 1:08 AM 2 1:25 EDT AM EDT Resulting Agency Comment Spec In Lab Gela Novak MD CHEMISTRY ORDERABLES Performing Organization Address City/State/[place] [address] Transfuse RBC (02/21/2022 4:53 PM EDT) Gela Novak MD NURSING TREATMENT ORDERABLES - BLOOD ADMIN Transfuse RBC (02/21/2022 4:53 PM EDT) Gela Novak MD NURSING TREATMENT ORDERABLES - BLOOD ADMIN Type and Screen Validity (02/21/2022 12:40 PM EDT) [facility] Method Time Signature T&S only valid [facility] LABORATORY Comment: This Type and Screen result is only valid at the [facility] Specimen Anatomical Collection Method Collection Time Receive d Time (Source) Location / / Volume Laterality Blood 02/21/2022 12:40 02/21/2022 1:12 PM EDT PM EDT Resulting Agency Comment Spec In Lab Melissa Gonzales MD BLOOD BANK ORDERABLES Performing Organization Address City/State/ZIP Code Phon e Number [address] ABORH Recheck Status (02/21/2022 12:40 PM EDT) [facility] Method Time Signature ABORH Type Completed [facility] LABORATORY Specimen Anatomical Collection Method Collection Time Receive d Time (Source) Location / / Volume Laterality Blood 02/21/2022 12:40 02/21/2022 1:12 PM EDT PM EDT Resulting Agency Comment Spec In Lab Melissa Gonzales MD BLOOD BANK ORDERABLES Performing Organization Address City/State/[place] [address] Antibody screen (02/21/2022 12:40 PM EDT) [facility] Method Time Signature Ab Screen Negative [facility] LABORATORY Expires at 02/24/2022 JOS[facility] GILMORE [id number] on: [facility] LABORATORY Specimen Anatomical Collection Method Collection Time Receive d Time (Source) Location / / Volume Laterality Blood 02/21/2022 12:40 02/21/2022 1:12 PM EDT PM EDT Resulting Agency Comment Spec In Lab Melissa Gonzales MD BLOOD BANK ORDERABLES Performing Organization Address City/[facility]/[place] [address] ABO/Rh Typing (02/21/2022 12:40 PM EDT) athologist Signature ABORh Type A Pos [facility] LABORATORY Specimen Anatomical Collection Method Collection Time Receive d Time (Source) Location / / Volume Laterality Blood 02/21/2022 12:40 02/21/2022 1:12 PM EDT PM EDT Resulting Agency Comment Spec In Lab Melissa Gonzales MD BLOOD BANK ORDERABLES Performing Organization Address City/[facility]/[place] [address] Prepare RBC (02/21/2022 12:20 PM EDT) P athologist Signature Dispensed? Yes [facility] LABORATORY Specimen Anatomical Collection Method Collection Time Receive d Time (Source) Location / / Volume Laterality Blood 02/21/2022 12:20 02/21/2022 PM EDT 12:19 PM EDT Gela Novak MD BLOOD BANK ORDERABLES Performing Organization Address City/[facility]/[place] [address] (ABNORMAL) Albumin Level (02/21/2022 3:38 AM EDT) P athologist Signature Albumin 2.3 (L) 3.2 - 5.2 [facility] g/dL [facility] LABORATORY Specimen Anatomical Collection Method Collection Time Receive d Time (Source) Location / / Volume Laterality Blood Venous Draw / 02/21/2022 3:38 AM 02/22/20 22 3:47 Unknown EDT AM EDT Resulting Agency Comment Spec In Lab Bambi Pressley MD CHEMISTRY ORDERABLES Performing Organization Address City/[facility]/[place] [address] (ABNORMAL) Differential, Automated (02/21/2022 3:38 AM EDT) P athologist Signature Neutrophils % 67.8 % [facility] LABORATORY Neutr Abs (ANC) 6.03 1.70 - [facility] 6.10 [facility] x10(3)/[facility] LABORATORY Lymphocytes % 13.5 % [facility] LABORATORY Lymphocytes Abs 1.2 0.9 - 3.2 [facility] x10(3)/[facility] LABORATORY Monocytes % 9.4 % [facility] LABORATORY Monocyte Abs 0.8 0.3 - 0.9 [facility] x10(3)/[facility] LABORATORY Eosinophils % 3.1 % [facility] LABORATORY Eosinophils Abs 0.3 0.0 - 0.4 [facility] x10(3)/[facility] LABORATORY Basophils % 0.6 % [facility] LABORATORY Basophils Abs 0.0 0.0 - 0.1 [facility] x10(3)/[facility] LABORATORY Immature Gran % 5.60 % [facility] LABORATORY Comment: Immature granulocytes(IG's)percentage an d absolute count will include metamyelocytes, myelocytes, and promyelo cytes. Blood smears from CBCs yielding IG's will be scanned manually for concor dance. If this scan disagrees with the automated IG or if promyelocytes are not ed, a manual differential will be performed. Gemini Gran Abs 0.50 (H) 0.00 - 0.04 x10(3)/[facility] [place] LABORATORY Specimen Anatomical Collection Method Collection Time Receive d Time (Source) Location / / Volume Laterality Blood 02/21/2022 3:38 AM 2 3:46 EDT AM EDT Resulting Agency Comment Spec In Lab Kaitlyn Rock MD HEMATOLOGY ORDERABLES Performing Organization Address City/State/[place] [address] (ABNORMAL) Hemogram (02/21/2022 3:38 AM EDT) Analysis Performed At Patho logist Time Signature WBC 8.9 4.0 - 9.5 [facility] x10(3)/[facility] LABORATORY RBC 2.37 (L) 4.58 - [facility] 5.54 [facility] x10(6)/[facility] LABORATORY Hemoglobin 6.9 (L) 13.7 - [facility] 16.5 g/dL [facility] LABORATORY Hematocrit 21.4 (L) 40.5 - [facility] 48.5 % [facility] LABORATORY MCV 90.3 82.9 - [facility] 93.1 fL [facility] LABORATORY MCH 29.1 27.5 - [facility] 32.1 [facility] LABORATORY MCHC 32.2 32.0 - [facility] 35.7 g/dL [facility] LABORATORY Platelets 273 145 - 357 [facility] x10(3)/[facility] LABORATORY RDWSD 50.5 (H) 36.0 - [facility] 45.0 [facility] LABORATORY RDWCV 15.7 (H) 11.4 - [facility] 13.8 % [facility] LABORATORY MPV 8.5 7.6 - 12.9 [facility] LABORATORY nRBC % Auto 0.0 % [facility] LABORATORY nRBC Abs Auto 0.000 0.000 - [facility] 0.000 [facility] x10(3)/[facility] LABORATORY Specimen Anatomical Collection Method Collection Time Receive d Time (Source) Location / / Volume Laterality Blood 02/21/2022 3:38 AM 3:46 EDT AM EDT Resulting Agency Comment Spec In Lab Kaitlyn Rock MD HEMATOLOGY ORDERABLES Performing Organization Address City/State/[place] [address] (ABNORMAL) Basic Metabolic Panel (non-fasting) (02/21/2022 3:38 AM EDT) P athologist Signature Glucose Lvl 96 65 - 199 [facility] mg/dL [facility] LABORATORY Comment: Diabetes: >=200 mg/dL plus symp toms BUN 46 (H) 10 - 20 mg/dL [facility] LABORATORY Creatinine 3.68 (H) 0.80 - 1.50 mg/dL [facility] LABORATORY Sodium 136 135 - 145 mmol/L [facility] LABORATORY Potassium 4.9 3.5 - 5.0 mmol/L [facility] LABORATORY Comment: Please note: ??Patients with WBC >100,00 0 may have falsely elevated Potassium levels. ??For accurate Potassium quantif ication in these patients send serum separator tube (gold top) for subsequent determinations. ??Contact the Clinical Chemistry Laboratory if there are any qu estions. Chloride 101 98 - 107 mmol/L [facility] LABORATORY CO2 26 22 - 31 mmol/L [facility] LABORATORY Anion Gap 9 5 - 15 mmol/L [facility] LABORATORY Calcium 8.1 (L) 8.5 - 10.5 mg/dL [facility] LABORATORY Estimated GFR 22 (L) >=60 mL/min/1.73 m?? [facility] LABORATORY Comment: This patient's estimated [...] Organization Address City/State/ZIP Code Phon e Number [address] (ABNORMAL) Phosphorus (02/21/2022 3:38 AM EDT) P athologist Signature Phosphorus 5.1 (H) 2.5 - 4.[address] [facility] mg/dL [facility] LABORATORY Specimen Anatomical Collection Method Collection Time Receive d Time (Source) Location / / Volume Laterality Blood 02/21/2022 3:38 AM 2 3:46 EDT AM EDT Resulting Agency Comment Spec In Lab Gela Novak MD CHEMISTRY ORDERABLES Performing Organization Address City/State/ZIP Code Phon e Number [address] Magnesium (02/21/2022 3:38 AM EDT) P athologist Signature Magnesium 0.92 0.69 - 1.[address] [facility] mmol/[facility] LABORATORY Specimen Anatomical Collection Method Collection Time Receive d Time (Source) Location / / Volume Laterality Blood 02/21/2022 3:38 AM 2 3:46 EDT AM EDT Resulting Agency Comment Spec In Lab Gela Novak MD CHEMISTRY ORDERABLES Performing Organization Address City/State/[place] [address] (ABNORMAL) Differential, Automated (02/20/2022 4:45 AM EDT) [facility] gist Method Time Signature Neutrophils % 67.8 % [facility] LABORATORY Neutr Abs (ANC) 6.58 (H) 1.70 - [facility] 6.10 [facility] x10(3)/[facility] LABORATORY Lymphocytes % 12.7 % [facility] LABORATORY Lymphocytes Abs 1.2 0.9 - 3.2 [facility] x10(3)/[facility] LABORATORY Monocytes % 9.2 % [facility] LABORATORY Monocyte Abs 0.9 0.3 - 0.9 [facility] x10(3)/[facility] LABORATORY Eosinophils % 3.0 % [facility] LABORATORY Eosinophils Abs 0.3 0.0 - 0.4 [facility] x10(3)/[facility] LABORATORY Basophils % 0.4 % [facility] LABORATORY Basophils Abs 0.0 0.0 - 0.1 [facility] x10(3)/[facility] LABORATORY Immature Gran % 6.90 % [facility] LABORATORY Comment: Immature granulocytes(IG's)percentage an d absolute count will include metamyelocytes, myelocytes, and promyelo cytes. Blood smears from CBCs yielding IG's will be scanned manually for concor dance. If this scan disagrees with the automated IG or if promyelocytes are not ed, a manual differential will be performed. Gemini Gran Abs 0.67 (H) 0.00 - 0.04 x10(3)/[facility] [place] LABORATORY Specimen Anatomical Collection Method Collection Time Receive d Time (Source) Location / / Volume Laterality Blood 02/20/2022 4:45 AM 2 5:02 EDT AM EDT Resulting Agency Comment Spec In Lab Kaitlyn Rock MD HEMATOLOGY ORDERABLES Performing Organization Address City/State/[place] [address] (ABNORMAL) Hemogram (02/20/2022 4:45 AM EDT) Analysis Performed At Patho logist Time Signature WBC 9.7 (H) 4.0 - 9.5 [facility] x10(3)/[facility] LABORATORY RBC 2.48 (L) 4.58 - [facility] 5.54 [facility] x10(6)/[facility] LABORATORY Hemoglobin 7.2 (L) 13.7 - [facility] 16.5 g/dL [facility] LABORATORY Hematocrit 22.2 (L) 40.5 - [facility] 48.5 % [facility] LABORATORY MCV 89.5 82.9 - [facility] 93.1 [facility] LABORATORY MCH 29.0 27.5 - [facility] 32.1 pg [facility] LABORATORY MCHC 32.4 32.0 - [facility] 35.7 g/dL [facility] LABORATORY Platelets 312 145 - [address] [facility] x10(3)/[facility] LABORATORY RDWSD 49.6 (H) 36.0 - [facility] 45.0 [facility] LABORATORY RDWCV 15.4 (H) 11.4 - [facility] 13.8 % [facility] LABORATORY MPV 8.4 7.6 - 12.9 [facility] LABORATORY nRBC % Auto 0.0 % [facility] LABORATORY nRBC Abs Auto 0.000 0.000 - [facility] 0.000 [facility] x10(3)/[facility] LABORATORY Specimen Anatomical Collection Method Collection Time Receive d Time (Source) Location / / Volume Laterality Blood 02/20/2022 4:45 AM 2 5:02 EDT AM EDT Resulting Agency Comment Spec In Lab Kaitlyn Rock MD HEMATOLOGY ORDERABLES Performing Organization Address City/[facility]/[place] [address] (ABNORMAL) Basic Metabolic Panel (non-fasting) (02/20/2022 4:45 AM EDT) [facility] athologist Signature Glucose Lvl 98 65 - 199 [facility] mg/dL [facility] Comment: Diabetes: >=200 mg/dL plus symp toms BUN 35 (H) 10 - 20 mg/dL [facility] Creatinine 3.27 (H) 0.80 - 1.50 mg/dL [facility] Comment: result rechecked-trb Sodium 136 135 - 145 mmol/L [facility] Potassium 4.7 3.5 - 5.0 mmol/L [facility] Comment: Please note: ??Patients with WBC >100,00 0 may have falsely elevated Potassium levels. ??For accurate Potassium quantif ication in these patients send serum separator tube (gold top) for subsequent determinations. ??Contact the Clinical Chemistry Laboratory if there are any qu estions. Chloride 99 98 - 107 mmol/L [facility] CO2 27 22 - 31 mmol/L [facility] Anion Gap 10 5 - 15 mmol/L [facility] Calcium 7.8 (L) 8.5 - 10.5 mg/dL [facility] Estimated GFR 25 (L) >=60 mL/min/1.73 m?? [facility] Comment: This patient's estimated [...] Organization Address City/State/ZIP Code Phon e Number [address] (ABNORMAL) Phosphorus (02/20/2022 4:45 AM EDT) athologist Signature Phosphorus 4.6 (H) 2.5 - 4.5 [facility] mg/dL [facility] Specimen Anatomical Collection Method Collection Time Receive d Time (Source) Location / / Volume Laterality Blood 02/20/2022 4:45 AM 2 5:02 EDT AM EDT Resulting Agency Comment Spec In Lab Gela Novak MD CHEMISTRY ORDERABLES Performing Organization Address City/[facility]/ZIP Code Phon e Number [address] Magnesium (02/20/2022 4:45 AM EDT) athologist Signature Magnesium 0.83 0.69 - 1.07 [facility] mmol/L [facility] Specimen Anatomical Collection Method Collection Time Receive d Time (Source) Location / / Volume Laterality Blood 02/20/2022 4:45 AM 2 5:02 EDT AM EDT Resulting Agency Comment Spec In Lab Gela Novak MD CHEMISTRY ORDERABLES Performing Organization Address City/[facility]/[place] [address] Duplex for DVT, Arm, Unilat (02/19/2022 3:45 PM EDT) Component Value Ref Test Analysis Performed At [facility] gist Range Method Time Signature VB Text Department: Vascular Surgery Lab VASCUBASE Report Patient: [id number] (ALIX HOLLAND) CPT: 52680 Referring Physician: GELA NOVAK ?? Phone: Indications: [...] Anaerobic Culture (02/19/2022 9:45 AM EDT) [facility] [place] Method Time Signature Anaerobic No anaerobic [facility] Culture organisms [facility] LABORATORY Specimen Anatomical Collection Method Collection Time Receive d Time (Source) Location / / Volume Laterality Deep Wound STRUCTURE OF LEFT 02/19/2022 9:45 AM /09/2021 THIGH / Unknown EDT 10:24 AM EDT Comment: Left leg wound culture Resulting Agency Comment Spec In Lab Floridalma Sandoval MD MICROBIOLOGY - GENERAL ORDER JT Performing Organization Address City/[facility]/[place] [address] (ABNORMAL) Abscess/Wound Aspirate Culture (02/19/2022 9:45 AM EDT) Component Value Ref Test Analysis Performed At [facility] [place] Range Method Time Signature Abscess/Wound Rare Serratia marcescens M JON Aspirate Rare Pseudomonas aeruginosa HI [facility] Culture (A) [facility] Gram Stain Moderate Neutrophils [facility] No microorganisms seen. [facility] (A) [facility] Organism Serratia [facility] marcescens (A) [facility] Organism Pseudomonas JOSH aeruginosa (A) [facility] Specimen Anatomical Collection Method Collection [...] Organization Address City/State/[place] [address] (ABNORMAL) Vitamin D, 25-Hydroxy (02/19/2022 12:27 AM EDT) [facility] gist Method Time Signature 25-OH Vit D 12 (L) 21 - 100 [facility] Total ng/mL [facility] 25-OH Vit D Deficient [facility] LABORATORY Specimen Anatomical Collection Method Collection Time Receive d Time (Source) Location / / Volume Laterality Blood Venous Draw / 02/19/2022 12:27 02/19/2022 Unknown AM EDT 12:44 AM EDT Resulting Agency Comment Spec In Lab Vidhya Peñaloza MD CHEMISTRY ORDERABLES Performing Organization Address City/[facility]/ZIP Code Phon e Number [address] (ABNORMAL) Ferritin (02/19/2022 12:27 AM EDT) P athologist Signature Ferritin 855 (H) 30 - 400 [facility]/mL [facility] Comment: Pediatric reference ranges not verified at [facility], interpret with caution. Reference ranges for females greater trina n 50 years of age approach values for men, i.e., 30-400 ng/mL. Specimen Anatomical Collection Method Collection Time Receive d Time (Source) Location / / Volume Laterality Blood Venous Draw / 02/19/2022 12:27 02/19/2022 Unknown AM EDT 12:44 AM EDT Resulting Agency Comment Spec In Lab Bambi Pressley MD CHEMISTRY ORDERABLES Performing Organization Address City/[facility]/ZIP Code Phon e Number [address] (ABNORMAL) Differential, Automated (02/19/2022 12:27 AM EDT) Patholo gist Method Time Signature Neutrophils % 66.5 % [facility] Neutr Abs (ANC) 8.58 (H) 1.70 - [facility] 6.10 [facility] x10(3)/[facility] L LABORATORY Lymphocytes % 11.4 % [facility] Lymphocytes Abs 1.5 0.9 - 3.2 [facility] x10(3)/[facility] LABORATORY Monocytes % 7.6 % [facility] Monocyte Abs 1.0 (H) 0.3 - 0.9 [facility] x10(3)/[facility] LABORATORY Eosinophils % 4.0 % [facility] Eosinophils Abs 0.5 (H) 0.0 - 0.4 [facility] x10(3)/[facility] LABORATORY Basophils % 0.5 % [facility] Basophils Abs 0.1 0.0 - 0.1 [facility] x10(3)/[facility] LABORATORY Immature Gran % 10.00 % [facility] Comment: Immature granulocytes(IG's)percentage an d absolute count will include metamyelocytes, myelocytes, and promyelo cytes. Blood smears from CBCs yielding IG's will be scanned manually for concor dance. If this scan disagrees with the automated IG or if promyelocytes are not ed, a manual differential will be performed. Gemini Gran Abs 1.29 (H) 0.00 - 0.04 x10(3)/[facility] LABORATORY Specimen Anatomical Collection Method Collection Time Receive d Time (Source) Location / / Volume Laterality Blood 02/19/2022 12:27 02/19/2022 AM EDT 12:33 AM EDT Resulting Agency Comment Spec In Lab Collette Dye MD HEMATOLOGY ORDERABLES Performing Organization Address City/State/[place] [address] (ABNORMAL) Hemogram (02/19/2022 12:27 AM EDT) Analysis Performed At Patho logist Time Signature WBC 12.9 (H) 4.0 - 9.5 [facility] x10(3)/[facility] LABORATORY RBC 2.44 (L) 4.58 - [facility] 5.54 [facility] x10(6)/[facility] LABORATORY Hemoglobin 7.1 (L) 13.7 - [facility] 16.5 g/dL [facility] Hematocrit 21.9 (L) 40.5 - [facility] 48.5 % [facility] MCV 89.8 82.9 - [facility] 93.1 fL [facility] MCH 29.1 27.5 - [facility] 32.1 pg [facility] MCHC 32.4 32.0 - [facility] 35.7 g/dL [facility] Platelets 320 145 - 357 [facility] x10(3)/[facility] LABORATORY RDWSD 51.8 (H) 36.0 [facility] 45.0 [facility] LABORATORY RDWCV 15.7 (H) 11.4 - [facility] 13.8 % [facility] MPV 8.7 7.6 - 12.9 [facility] LABORATORY nRBC % Auto 0.0 % [facility] nRBC Abs Auto 0.000 0.000 - [facility] 0.000 [facility] x10(3)/[facility] LABORATORY Specimen Anatomical Collection Method Collection Time Receive d Time (Source) Location / / Volume Laterality Blood 02/19/2022 12:27 02/19/2022 AM EDT 12:33 AM EDT Resulting Agency Comment Spec In Lab Collette Dye MD HEMATOLOGY ORDERABLES Performing Organization Address City/State/[place] [address] (ABNORMAL) Basic Metabolic Panel (non-fasting) (02/19/2022 12:27 AM EDT) athologist Signature Glucose Lvl 100 65 - 199 [facility] mg/dL [facility] Comment: Diabetes: >=200 mg/dL plus symp toms BUN 49 (H) 10 - 20 mg/dL [facility] Creatinine 4.47 (H) 0.80 - 1.50 mg/dL [facility] Sodium 133 (L) 135 - 145 mmol/L [facility] Potassium 4.6 3.5 - 5.0 mmol/L [facility] Comment: Please note: ??Patients with WBC >100,00 0 may have falsely elevated Potassium levels. ??For accurate Potassium quantif ication in these patients send serum separator tube (gold top) for subsequent determinations. ??Contact the Clinical Chemistry Laboratory if there are any qu estions. Chloride 97 (L) 98 - 107 mmol/L [facility] CO2 24 22 - 31 mmol/L [facility] Anion Gap 12 5 - 15 mmol/L [facility] Calcium 7.8 (L) 8.5 - 10.5 mg/dL [facility] Estimated GFR 17 (L) >=60 mL/min/1.73 m?? [facility] Comment: This patient's estimated [...] Organization Address City/State/ZIP Code Phon e Number [address] (ABNORMAL) Phosphorus (02/19/2022 12:27 AM EDT) P athologist Signature Phosphorus 5.9 (H) 2.5 - 4.[address] [address] mg/dL [facility] Specimen Anatomical Collection Method Collection Time Receive d Time (Source) Location / / Volume Laterality Blood 02/19/2022 12:27 02/19/2022 AM EDT 12:33 AM EDT Resulting Agency Comment Spec In Lab Gela Novak MD CHEMISTRY ORDERABLES Performing Organization Address City/State/ZIP Code Phon e Number [address] Magnesium (02/19/2022 12:27 AM EDT) P athologist Signature Magnesium 0.84 0.69 - 1.[address] [facility] mmol/L [facility] Specimen Anatomical Collection Method Collection Time Receive d Time (Source) Location / / Volume Laterality Blood 02/19/2022 12:27 02/19/2022 AM EDT 12:33 AM EDT Resulting Agency Comment Spec In Lab Gela Novak MD CHEMISTRY ORDERABLES Performing Organization Address City/[facility]/[place] [address] Hepatitis B Surface Antigen (02/19/2022 12:27 AM EDT) Analysis Performed At [facility] logist Time Signature HepB Surface Negative Negative [facility] LABORATORY Specimen Anatomical Collection Method Collection Time Receive d Time (Source) Location / / Volume Laterality Blood 02/19/2022 12:27 02/19/2022 AM EDT 12:33 AM EDT Resulting Agency Comment Spec In Lab Gela Novak MD CHEMISTRY ORDERABLES Performing Organization Address City/[facility]/ZIP Code Phon e Number [address] Scan, Peripheral Blood (02/18/2022 4:01 AM EDT) [facility] Method Time Signature Plat Estimate Normal [facility] RBC Morphology Abnormal [facility] Ovalocytes 1-5 /HPF [facility] Stippled RBCs Present >1/HPF [facility] Specimen Anatomical Collection Method Collection Time Receive d Time (Source) Location / / Volume Laterality Blood 02/18/2022 4:01 AM 4:16 EDT AM EDT Resulting Agency Comment Spec In Lab Collette Dye MD HEMATOLOGY ORDERABLES Performing Organization Address City/[facility]/[place] [address] (ABNORMAL) Differential, Automated (02/18/2022 4:01 AM EDT) [facility] gist Method Time Signature Neutrophils % 70.4 % [facility] Neutr Abs (ANC) 10.70 (H) 1.70 - [facility] 6.10 [facility] x10(3)/[facility] LABORATORY Lymphocytes % 8.0 % [facility] Lymphocytes Abs 1.2 0.9 - 3.2 [facility] x10(3)/[facility] LABORATORY Monocytes % 7.7 % [facility] Monocyte Abs 1.2 (H) 0.3 - 0.9 [facility] x10(3)/[facility] LABORATORY Eosinophils % 3.2 % [facility] Eosinophils Abs 0.5 (H) 0.0 - 0.4 [facility] x10(3)/[facility] LABORATORY Basophils % 0.4 % [facility] Basophils Abs 0.1 0.0 - 0.1 [facility] x10(3)/[facility] LABORATORY Immature Gran % 10.30 % [facility] Comment: Immature granulocytes(IG's)percentage an d absolute count will include metamyelocytes, myelocytes, and promyelo cytes. Blood smears from CBCs yielding IG's will be scanned manually for concor dance. If this scan disagrees with the automated IG or if promyelocytes are not ed, a manual differential will be performed. Gemini Gran Abs 1.56 (H) 0.00 - 0.04 x10(3)/[facility] LABORATORY Specimen Anatomical Collection Method Collection Time Receive d Time (Source) Location / / Volume Laterality Blood 02/18/2022 4:01 AM 4:16 EDT AM EDT Resulting Agency Comment Spec In Lab Collette Dye MD HEMATOLOGY ORDERABLES Performing Organization Address City/State/[place] [address] (ABNORMAL) Hemogram (02/18/2022 4:01 AM EDT) Analysis Performed At Patho logist Time Signature WBC 15.2 (H) 4.0 - 9.5 [facility] x10(3)/[facility] LABORATORY RBC 2.44 (L) 4.58 - [facility] 5.54 [facility] x10(6)/[facility] LABORATORY Hemoglobin 7.0 (L) 13.7 - [facility] g/dL [facility] Hematocrit 22.0 (L) 40.5 - [facility] 48.5 % [facility] MCV 90.2 82.9 - [facility] 93.1 [facility] LABORATORY MCH 28.7 27.5 - [facility] 32.1 pg [facility] MCHC 31.8 (L) 32.0 - [facility] 35.7 g/dL [facility] Platelets 325 145 - 357 [facility] x10(3)/[facility] LABORATORY RDWSD 51.1 (H) 36.0 - [facility] 45.0 [facility] LABORATORY RDWCV 15.5 (H) 11.4 - [facility] 13.8 % [facility] MPV 8.8 7.6 - 12.9 [facility] LABORATORY nRBC % Auto 0.0 % [facility] nRBC Abs Auto 0.000 0.000 - [facility] 0.000 [facility] x10(3)/[facility] LABORATORY Specimen Anatomical Collection Method Collection Time Receive d Time (Source) Location / / Volume Laterality Blood 02/18/2022 4:01 AM 4:16 EDT AM EDT Resulting Agency Comment Spec In Lab Collette Dye MD HEMATOLOGY ORDERABLES Performing Organization Address City/State/[place] [address] (ABNORMAL) Basic Metabolic Panel (non-fasting) (02/18/2022 4:01 AM EDT) P athologist Signature Glucose Lvl 98 65 - 199 [facility] mg/dL [facility] Comment: Diabetes: >=200 mg/dL plus symp toms BUN 36 (H) 10 - 20 mg/dL [facility] Creatinine 3.80 (H) 0.80 - 1.50 mg/dL [facility] Comment: result rechecked-trb Sodium 132 (L) 135 - 145 mmol/L [facility] Potassium 4.3 3.5 - 5.0 mmol/L [facility] Comment: Please note: ??Patients with WBC >100,00 0 may have falsely elevated Potassium levels. ??For accurate Potassium quantif ication in these patients send serum separator tube (gold top) for subsequent determinations. ??Contact the Clinical Chemistry Laboratory if there are any qu estions. Chloride 97 (L) 98 - 107 mmol/L [facility] CO2 28 22 - 31 mmol/L [facility] Anion Gap 7 5 - 15 mmol/L [facility] Calcium 7.9 (L) 8.5 - 10.5 mg/dL [facility] Estimated GFR 21 (L) >=60 mL/min/1.73 m?? [facility] Comment: This patient's estimated [...] Novak MD CHEMISTRY ORDERABLES Performing Organization Address City/[facility]/[place] [address] (ABNORMAL) Phosphorus (02/18/2022 4:01 AM EDT) P athologist Signature Phosphorus 4.9 (H) 2.5 - 4.5 [facility] mg/dL [facility] Specimen Anatomical Collection Method Collection Time Receive d Time (Source) Location / / Volume Laterality Blood 02/18/2022 4:01 AM 2 4:17 EDT AM EDT Resulting Agency Comment Spec In Lab Gela Novak MD CHEMISTRY ORDERABLES Performing Organization Address City/State/[place] [address] Magnesium (02/18/2022 4:01 AM EDT) P athologist Signature Magnesium 0.79 0.69 - 1.[address] [address] mmol/L [facility] Specimen Anatomical Collection Method Collection Time Receive d Time (Source) Location / / Volume Laterality Blood 02/18/2022 4:01 AM 4:17 EDT AM EDT Resulting Agency Comment Spec In Lab Gela Novak MD CHEMISTRY ORDERABLES Performing Organization Address City/[facility] Phon e Number [address] Anaerobic Culture (02/17/2022 8:35 AM EDT) [facility] Method Time Signature Anaerobic No anaerobic [facility] Culture organisms [facility] LABORATORY Specimen Anatomical Collection Method Collection Time Receive d Time (Source) Location / / Volume Laterality Deep Wound STRUCTURE OF LEFT 02/17/2022 8:35 AM 07/ THIGH / Unknown EDT 10:03 AM EDT Comment: Left lateral thigh wound Resulting Agency Comment Spec In Lab Jayme Armstrong MD MICROBIOLOGY - GENERAL ORDER JT Performing Organization Address City/[facility]/ZIP Code Phon e Number [address] (ABNORMAL) Abscess/Wound Aspirate Culture (02/17/2022 8:35 AM EDT) Component Value Ref Test Analysis Performed At [facility] [place] Range Method Time Signature Abscess/Woun One colony of JOSH d Aspirate Serratia marcescens [employer] Culture : Susceptibilities [facility] (A) LABORATORY Gram Stain Moderate Neutrophils [facility] No microorganisms seen. [facility] (A) [facility] Organism Serratia marcescens [facility] (A) [facility] Specimen Anatomical Collection Method Collection Time Receive d Time (Source) Location / / Volume Laterality Deep Wound STRUCTURE OF LEFT 02/17/2022 8:35 AM 07/ THIGH / Unknown EDT 10:03 AM EDT Comment: Left lateral thigh wound Resulting Agency Comment Spec In Lab Jayme Armstrong MD MICROBIOLOGY - GENERAL ORDER JT Performing Organization Address City/[facility]/ZIP [place] [address] Anaerobic Culture (02/17/2022 8:35 AM EDT) [facility] Method Time Signature Anaerobic No anaerobic [facility] Culture organisms [facility] LABORATORY Specimen Anatomical Collection Method Collection Time Receive d Time (Source) Location / / Volume Laterality Deep Wound STRUCTURE OF LEFT 02/17/2022 8:35 AM / THIGH / Unknown EDT 10:02 AM EDT Comment: left superior thigh wound Resulting Agency Comment Spec In Lab Jayme Armstrong MD MICROBIOLOGY - GENERAL ORDER JT Performing Organization Address City/[facility]/ZIP Code Phon e Number [address] (ABNORMAL) Abscess/Wound Aspirate Culture (02/17/2022 8:35 AM EDT) Component Value Ref Test Analysis Performed At [facility] Range Method Time Signature Abscess/Woun One colony of Serratia gabriele scens : Susceptibilities previously reported [place] Aspirate One colony of Pseudomonas ae ruginosa : Susceptibilities previously reported [employer] Culture (A) [facility] Gram Stain Moderate Neutrophils seen [facility] No microorganisms seen. [facility] (A) [facility] Organism Serratia marcescens [facility] (A) [facility] Organism Pseudomonas JOS[facility] aeruginosa (A) [facility] Specimen Anatomical Collection Method Collection Time Receive d Time (Source) Location / / Volume Laterality Deep Wound STRUCTURE OF LEFT 02/17/2022 8:35 AM 01/30 THIGH / Unknown EDT 10:02 AM EDT Comment: left superior thigh wound Resulting Agency Comment Spec In Lab Jayme Armstrong MD MICROBIOLOGY - GENERAL ORDER JT Performing Organization Address City/State/[place] [address] (ABNORMAL) Differential, Automated (02/17/2022 3:40 AM EDT) [facility] Method Time Signature Neutrophils % 66.7 % [facility] Neutr Abs (ANC) 11.34 (H) 1.70 - [facility] 6.10 [facility] x10(3)/[facility] L LABORATORY Lymphocytes % 8.6 % [facility] Lymphocytes Abs 1.5 0.9 - 3.2 [facility] x10(3)/[facility] LABORATORY Monocytes % 6.6 % [facility] Monocyte Abs 1.1 (H) 0.3 - 0.9 [facility] x10(3)/[facility] LABORATORY Eosinophils % 3.9 % [facility] Eosinophils Abs 0.7 (H) 0.0 - 0.4 [facility] x10(3)/[facility] LABORATORY Basophils % 0.5 % [facility] Basophils Abs 0.1 0.0 - 0.1 [facility] x10(3)/[facility] LABORATORY Immature Gran % 13.70 % [facility] Comment: Immature granulocytes(IG's)percentage an d absolute count will include metamyelocytes, myelocytes, and promyelo cytes. Blood smears from CBCs yielding IG's will be scanned manually for concor dance. If this scan disagrees with the automated IG or if promyelocytes are not ed, a manual differential will be performed. Gemini Gran Abs 2.33 (H) 0.00 - 0.04 x10(3)/[facility] LABORATORY Specimen Anatomical Collection Method Collection Time Receive d Time (Source) Location / / Volume Laterality Blood 02/17/2022 3:40 AM 2 3:59 EDT AM EDT Resulting Agency Comment Spec In Lab Collette Dye MD HEMATOLOGY ORDERABLES Performing Organization Address City/State/[place] [address] (ABNORMAL) Hemogram (02/17/2022 3:40 AM EDT) Analysis Performed At Patho logist Time Signature WBC 17.0 (H) 4.0 - 9.5 [facility] x10(3)/[facility] LABORATORY RBC 2.46 (L) 4.58 - [facility] 5.54 [facility] x10(6)/[facility] LABORATORY Hemoglobin 7.1 (L) 13.7 - [facility] 16.5 g/dL [facility] LABORATORY Hematocrit 22.2 (L) 40.5 - [facility] [place] 48.5 % [facility] LABORATORY MCV 90.2 82.9 - [facility] [place] 93.1 [facility] LABORATORY MCH 28.9 27.5 - [facility] [place] 32.1 pg [facility] LABORATORY MCHC 32.0 32.0 - [facility] [place] 35.7 g/dL [facility] LABORATORY Platelets 316 145 - 357 [facility] [employer] x10(3)/[facility] LABORATORY RDWSD 51.5 (H) 36.0 - [facility] [place] 45.0 [facility] LABORATORY RDWCV 15.7 (H) 11.4 - [facility] 13.8 % [facility] LABORATORY MPV 9.0 7.6 - 12.9 [facility] LABORATORY nRBC % Auto 0.0 % [facility] LABORATORY nRBC Abs Auto 0.000 0.000 - [facility] 0.000 [facility] x10(3)/[facility] LABORATORY Specimen Anatomical Collection Method Collection Time Receive d Time (Source) Location / / Volume Laterality Blood 02/17/2022 3:40 AM 2 3:59 EDT AM EDT Resulting Agency Comment Spec In Lab Collette Dye MD HEMATOLOGY ORDERABLES Performing Organization Address City/State/ZIP Code Phon e Number [place] [id number] [address] (ABNORMAL) Basic Metabolic Panel (non-fasting) (02/17/2022 3:40 AM EDT) P athologist Signature Glucose Lvl 101 65 - 199 [facility] mg/dL [facility] LABORATORY Comment: Diabetes: >=200 mg/dL plus symp toms BUN 51 (H) 10 - 20 mg/dL [facility] LABORATORY Creatinine 5.07 (H) 0.80 - 1.50 mg/dL [facility] LABORATORY Comment: result rechecked-sf Sodium 130 (L) 135 - 145 mmol/L [facility] LABORATORY Potassium 4.5 3.5 - 5.0 mmol/L [facility] LABORATORY Comment: Please note: ??Patients with WBC >100,00 0 may have falsely elevated Potassium levels. ??For accurate Potassium quantif ication in these patients send serum separator tube (gold top) for subsequent determinations. ??Contact the Clinical Chemistry Laboratory if there are any qu estions. Chloride 96 (L) 98 - 107 mmol/L [facility] LABORATORY CO2 24 22 - 31 mmol/L [facility] LABORATORY Anion Gap 10 5 - 15 mmol/L [facility] LABORATORY Calcium 7.8 (L) 8.5 - 10.5 mg/dL [facility] LABORATORY Estimated GFR 15 (L) >=60 mL/min/1.73 m?? [facility] LABORATORY Comment: This patient's estimated [...] Organization Address City/State/[place] [address] (ABNORMAL) Phosphorus (02/17/2022 3:40 AM EDT) P athologist Signature Phosphorus 5.7 (H) 2.5 - 4.[address] [facility] mg/dL [facility] LABORATORY Specimen Anatomical Collection Method Collection Time Receive d Time (Source) Location / / Volume Laterality Blood 02/17/2022 3:40 AM 2 3:59 EDT AM EDT Resulting Agency Comment Spec In Lab Gela Novak MD CHEMISTRY ORDERABLES Performing Organization Address City/State/[place] [address] [facility] [address] Magnesium (02/17/2022 3:40 AM EDT) P athologist Signature Magnesium 0.86 0.69 - 1.[address] [facility] mmol/L [facility] LABORATORY Specimen Anatomical Collection Method Collection Time Receive d Time (Source) Location / / Volume Laterality Blood 02/17/2022 3:40 AM 3:59 EDT AM EDT Resulting Agency Comment Spec In Lab Gela Novak MD CHEMISTRY ORDERABLES Performing Organization Address City/State/ZIP Code Phon e Number [address] (ABNORMAL) Differential, Automated (02/16/2022 4:05 AM EDT) Patholo gist Method Time Signature Neutrophils % 66.8 % [facility] LABORATORY Neutr Abs (ANC) 12.70 (H) 1.70 - [facility] 6.10 [facility] x10(3)/[facility] LABORATORY Lymphocytes % 6.8 % [facility] LABORATORY Lymphocytes Abs 1.3 0.9 - 3.2 [facility] x10(3)/[facility] LABORATORY Monocytes % 5.9 % [facility] LABORATORY Monocyte Abs 1.1 (H) 0.3 - 0.9 [facility] x10(3)/[facility] LABORATORY Eosinophils % 3.2 % [facility] LABORATORY Eosinophils Abs 0.6 (H) 0.0 - 0.4 [facility] x10(3)/[facility] LABORATORY Basophils % 0.6 % [facility] LABORATORY Basophils Abs 0.1 0.0 - 0.1 [facility] x10(3)/[facility] LABORATORY Immature Gran % 16.70 % [facility] LABORATORY Comment: Immature granulocytes(IG's)percentage an d absolute count will include metamyelocytes, myelocytes, and promyelo cytes. Blood smears from CBCs yielding IG's will be scanned manually for concor dance. If this scan disagrees with the automated IG or if promyelocytes are not ed, a manual differential will be performed. Gemini Gran Abs 3.17 (H) 0.00 - 0.04 x10(3)/[facility] LABORATORY Specimen Anatomical Collection Method Collection Time Receive d Time (Source) Location / / Volume Laterality Blood 02/16/2022 4:05 AM 4:20 EDT AM EDT Resulting Agency Comment Spec In Lab Veto Hidalgo MD HEMATOLOGY ORDERABLES Performing Organization Address City/State/[place] [address] (ABNORMAL) Hemogram (02/16/2022 4:05 AM EDT) Analysis Performed At Patho logist Time Signature WBC 19.0 (H) 4.0 - 9.5 [facility] x10(3)/[facility] LABORATORY RBC 2.50 (L) 4.58 - [facility] 5.54 [facility] x10(6)/[facility] LABORATORY Hemoglobin 7.3 (L) 13.7 - [facility] 16.5 g/dL [facility] LABORATORY Hematocrit 22.3 (L) 40.5 - [facility] 48.5 % [facility] LABORATORY MCV 89.2 82.9 - [facility] 93.1 [facility] LABORATORY MCH 29.2 27.5 - [facility] 32.1 pg [facility] LABORATORY MCHC 32.7 32.0 - [facility] 35.7 g/dL [facility] LABORATORY Platelets 296 145 - 357 [facility] x10(3)/[facility] LABORATORY RDWSD 51.5 (H) 36.0 - [facility] 45.0 [facility] LABORATORY RDWCV 15.7 (H) 11.4 - [facility] 13.8 % [facility] LABORATORY MPV 9.2 7.6 - 12.9 [facility] LABORATORY nRBC % Auto 0.0 % [facility] nRBC Abs Auto 0.000 0.000 - [facility] 0.000 [facility] x10(3)/[facility] LABORATORY Specimen Anatomical Collection Method Collection Time Receive d Time (Source) Location / / Volume Laterality Blood 02/16/2022 4:05 AM 2 4:20 EDT AM EDT Resulting Agency Comment Spec In Lab Veto Hidalgo MD HEMATOLOGY ORDERABLES Performing Organization Address City/State/[place] [address] (ABNORMAL) Basic Metabolic Panel (non-fasting) (02/16/2022 4:05 AM EDT) P athologist Signature Glucose Lvl 94 65 - 199 [facility] mg/dL [facility] LABORATORY Comment: Diabetes: >=200 mg/dL plus symp toms BUN 35 (H) 10 - 20 mg/dL [facility] LABORATORY Creatinine 3.65 (H) 0.80 - 1.50 mg/dL [facility] LABORATORY Comment: result rechecked-bm Sodium 128 (L) 135 - 145 mmol/L [facility] LABORATORY Potassium 4.4 3.5 - 5.0 mmol/L [facility] LABORATORY Comment: Please note: ??Patients with WBC >100,00 0 may have falsely elevated Potassium levels. ??For accurate Potassium quantif ication in these patients send serum separator tube (gold top) for subsequent determinations. ??Contact the Clinical Chemistry Laboratory if there are any qu estions. Chloride 95 (L) 98 - 107 mmol/L [facility] LABORATORY CO2 26 22 - 31 mmol/L [facility] LABORATORY Anion Gap 7 5 - 15 mmol/L [facility] LABORATORY Calcium 7.7 (L) 8.5 - 10.5 mg/dL [facility] LABORATORY Estimated GFR 22 (L) >=60 mL/min/1.73 m?? [facility] LABORATORY Comment: This patient's estimated [...] Organization Address City/State/ZIP Code Phon e Number [address] Phosphorus (02/16/2022 4:05 AM EDT) P athologist Signature Phosphorus 4.5 2.5 - 4.5 [facility] mg/dL [facility] Specimen Anatomical Collection Method Collection Time Receive d Time (Source) Location / / Volume Laterality Blood 02/16/2022 4:05 AM 2 4:20 EDT AM EDT Resulting Agency Comment Spec In Lab Gela Novak MD CHEMISTRY ORDERABLES Performing Organization Address City/[facility]/[place] [address] Magnesium (02/16/2022 4:05 AM EDT) P athologist Signature Magnesium 0.83 0.69 - 1.07 [facility] mmol/L [facility] LABORATORY Specimen Anatomical Collection Method Collection Time Receive d Time (Source) Location / / Volume Laterality Blood 02/16/2022 4:05 AM 2 4:20 EDT AM EDT Resulting Agency Comment Spec In Lab Gela Novak MD CHEMISTRY ORDERABLES Performing Organization Address City/[facility]/[place] [address] Anaerobic Culture (02/15/2022 9:06 AM EDT) Patholo gist Method Time Signature Anaerobic No anaerobic [facility] Culture organisms [facility] LABORATORY Specimen Anatomical Collection Method Collection Time Receive d Time (Source) Location / / Volume Laterality Deep Wound STRUCTURE OF LEFT 02/15/2022 9:06 AM 01/29 THIGH / Unknown EDT 10:49 AM EDT Comment: Left thigh wound culture Resulting Agency Comment Spec In Lab Jayme Armstrong MD MICROBIOLOGY - GENERAL ORDER JT Performing Organization Address City/State/Z[place] [address] (ABNORMAL) Abscess/Wound Aspirate Culture (02/15/2022 9:06 AM EDT) [facility] Method Time Signature Abscess/Wound Few Serratia marcescens MA RY Aspirate Rare Pseudomonas aeruginosa HI [facility] Culture Rare mixed bacterial morphotypes suggestive of normal cutaneous yessy [facility] LABORATORY Gram Stain Moderate Gram Positive Cocci [facility] Rare Gram Negative Rods [facility] OCK () [facility] LABORATORY Organism Serratia [facility] marcescens (A) [facility] LABORATORY Organism Pseudomonas [facility] aeruginosa (A) [facility] LABORATORY Specimen Anatomical Collection Method Collection [...] Organization Address City/State/[place] [address] (ABNORMAL) Differential, Automated (02/15/2022 3:50 AM EDT) [facility] gist Method Time Signature Neutrophils % 61.8 % [facility] LABORATORY Neutr Abs (ANC) 13.66 (H) 1.70 - [facility] 6.10 [facility] x10(3)/[facility] LABORATORY Lymphocytes % 7.3 % [facility] LABORATORY Lymphocytes Abs 1.6 0.9 - 3.2 [facility] x10(3)/[facility] LABORATORY Monocytes % 5.4 % [facility] LABORATORY Monocyte Abs 1.2 (H) 0.3 - 0.9 [facility] x10(3)/[facility] LABORATORY Eosinophils % 3.1 % [facility] LABORATORY Eosinophils Abs 0.7 (H) 0.0 - 0.4 [facility] x10(3)/[facility] LABORATORY Basophils % 0.5 % [facility] LABORATORY Basophils Abs 0.1 0.0 - 0.1 [facility] x10(3)/[facility] LABORATORY Immature Gran % 21.90 % [facility] LABORATORY Comment: Immature granulocytes(IG's)percentage an d absolute count will include metamyelocytes, myelocytes, and promyelo cytes. Blood smears from CBCs yielding IG's will be scanned manually for ny crain. If this scan disagrees with the automated IG or if promyelocytes are not ed, a manual differential will be performed. Gemini Gran Abs 4.85 (H) 0.00 - 0.04 x10(3)/[facility] LABORATORY Specimen Anatomical Collection Method Collection Time Receive d Time (Source) Location / / Volume Laterality Blood 02/15/2022 3:50 AM 4:05 EDT AM EDT Resulting Agency Comment Spec In Lab Veto Hidalgo MD HEMATOLOGY ORDERABLES Performing Organization Address City/State/ZIP Code Phon e Number [place] [id number]OS[address] LAB[address] Drive (ABNORMAL) Hemogram (02/15/2022 3:50 AM EDT) Analysis Performed At Patho logist Time Signature WBC 22.1 (H) 4.0 - 9.[address] [facility] x10(3)/[facility] LABORATORY RBC 2.43 (L) 4.58 - [facility] 5.54 [facility] x10(6)/[facility] LABORATORY Hemoglobin 7.2 (L) 13.7 - [facility] 16.5 g/dL [facility] LABORATORY Hematocrit 21.3 (L) 40.5 - [facility] 48.5 % [facility] LABORATORY MCV 87.7 82.9 - [facility] 93.1 [facility] LABORATORY MCH 29.6 27.5 - [facility] 32.1 pg [facility] LABORATORY MCHC 33.8 32.0 - [facility] 35.7 g/dL [facility] LABORATORY Platelets 254 145 - 357 [facility] x10(3)/[facility] LABORATORY RDWSD 49.2 (H) 36.0 - [facility] 45.0 [facility] LABORATORY RDWCV 15.3 (H) 11.4 - [facility] 13.8 % [facility] LABORATORY MPV 9.3 7.6 - 12.9 [facility] LABORATORY nRBC % Auto 0.0 % [facility] LABORATORY nRBC Abs Auto 0.000 0.000 - [facility] 0.000 [facility] x10(3)/[facility] LABORATORY Specimen Anatomical Collection Method Collection Time Receive d Time (Source) Location / / Volume Laterality Blood 02/15/2022 3:50 AM 2 4:05 EDT AM EDT Resulting Agency Comment Spec In Lab Veto Hidalgo MD HEMATOLOGY ORDERABLES Performing Organization Address City/State/[place] [address] (ABNORMAL) Basic Metabolic Panel (non-fasting) (02/15/2022 3:50 AM EDT) athologist Signature Glucose Lvl 91 65 - 199 [facility] mg/dL [facility] LABORATORY Comment: Diabetes: >=200 mg/dL plus symp toms BUN 62 (H) 10 - 20 mg/dL [facility] LABORATORY Creatinine 5.16 (H) 0.80 - 1.50 mg/dL [facility] LABORATORY Comment: result rechecked- Sodium 126 (L) 135 - 145 mmol/L [facility] LABORATORY Potassium 4.8 3.5 - 5.0 mmol/L [facility] LABORATORY Comment: Please note: ??Patients with WBC >100,00 0 may have falsely elevated Potassium levels. ??For accurate Potassium quantif ication in these patients send serum separator tube (gold top) for subsequent determinations. ??Contact the Clinical Chemistry Laboratory if there are any qu estions. Chloride 92 (L) 98 - 107 mmol/L [facility] LABORATORY CO2 23 22 - 31 mmol/L [facility] LABORATORY Anion Gap 11 5 - 15 mmol/L [facility] LABORATORY Calcium 7.5 (L) 8.5 - 10.5 mg/dL [facility] LABORATORY Estimated GFR 14 (L) >=60 mL/min/1.73 m?? [facility] LABORATORY Comment: This patient's estimated [...] Novak MD CHEMISTRY ORDERABLES Performing Organization Address City/[facility]/ZIP Code Phon e Number [address] (ABNORMAL) Phosphorus (02/15/2022 3:50 AM EDT) P athologist Signature Phosphorus 5.7 (H) 2.5 - 4.5 [facility] mg/dL [facility] LABORATORY Specimen Anatomical Collection Method Collection Time Receive d Time (Source) Location / / Volume Laterality Blood 02/15/2022 3:50 AM 2 4:05 EDT AM EDT Resulting Agency Comment Spec In Lab Gela Novak MD CHEMISTRY ORDERABLES Performing Organization Address City/[facility]/[place] [address] Magnesium (02/15/2022 3:50 AM EDT) P athologist Signature Magnesium 0.82 0.69 - 1.07 [facility] mmol/L [facility] LABORATORY Specimen Anatomical Collection Method Collection Time Receive d Time (Source) Location / / Volume Laterality Blood 02/15/2022 3:50 AM 2 4:05 EDT AM EDT Resulting Agency Comment Spec In Lab Gela Novak MD CHEMISTRY ORDERABLES Performing Organization Address City/[facility]/ZIP Code Phon e Number [address] Scan, Peripheral Blood (02/14/2022 5:26 AM EDT) [facility] Method Time Signature Plat Estimate Normal [facility] LABORATORY RBC Morphology Abnormal [facility] LABORATORY Hypochromia Slight [facility] LABORATORY Specimen Anatomical Collection Method Collection Time Receive d Time (Source) Location / / Volume Laterality Blood 02/14/2022 5:26 AM 5:45 EDT AM EDT Resulting Agency Comment Spec In Lab Veto Hidalgo MD HEMATOLOGY ORDERABLES Performing Organization Address City/State/[place] [address] (ABNORMAL) Differential, Automated (02/14/2022 5:26 AM EDT) [facility] [employer] Method Time Signature Neutrophils % 52.2 % [facility] LABORATORY Neutr Abs (ANC) 12.07 (H) 1.70 - [facility] 6.10 [facility] x10(3)/[facility] LABORATORY Lymphocytes % 7.7 % [facility] LABORATORY Lymphocytes Abs 1.8 0.9 - 3.2 [facility] x10(3)/[facility] LABORATORY Monocytes % 6.7 % [facility] LABORATORY Monocyte Abs 1.5 (H) 0.3 - 0.9 [facility] x10(3)/[facility] LABORATORY Eosinophils % 3.1 % [facility] LABORATORY Eosinophils Abs 0.7 (H) 0.0 - 0.4 [facility] x10(3)/[facility] LABORATORY Basophils % 0.3 % [facility] LABORATORY Basophils Abs 0.1 0.0 - 0.1 [facility] x10(3)/[facility] LABORATORY Immature Gran % 30.00 % [facility] LABORATORY Comment: Immature granulocytes(IG's)percentage an d absolute count will include metamyelocytes, myelocytes, and promyelo cytes. Blood smears from CBCs yielding IG's will be scanned manually for concor dance. If this scan disagrees with the automated IG or if promyelocytes are not ed, a manual differential will be performed. Gemini Gran Abs 6.92 (H) 0.00 - 0.04 x10(3)/[facility] [place] LABORATORY Specimen Anatomical Collection Method Collection Time Receive d Time (Source) Location / / Volume Laterality Blood 02/14/2022 5:26 AM 2 5:45 EDT AM EDT Resulting Agency Comment Spec In Lab Veto Hidalgo MD HEMATOLOGY ORDERABLES Performing Organization Address City/State/[place] [address] (ABNORMAL) Hemogram (02/14/2022 5:26 AM EDT) Analysis Performed At Patho logist Time Signature WBC 23.1 (H) 4.0 - 9.5 [facility] x10(3)/[facility] LABORATORY RBC 2.62 (L) 4.58 - [facility] 5.54 [facility] x10(6)/[facility] LABORATORY Hemoglobin 8.0 (L) 13.7 - [facility] g/dL [facility] LABORATORY Hematocrit 23.0 (L) 40.5 - [facility] 48.5 % [facility] LABORATORY MCV 87.8 82.9 - [facility] 93.1 [facility] LABORATORY MCH 30.5 27.5 - [facility] 32.1 pg [facility] LABORATORY MCHC 34.8 32.0 - [facility] 35.7 g/dL [facility] LABORATORY Platelets 240 145 - 357 [facility] x10(3)/[facility] LABORATORY RDWSD 49.2 (H) 36.0 - [facility] 45.0 [facility] LABORATORY RDWCV 15.5 (H) 11.4 - [facility] 13.8 % [facility] LABORATORY MPV 9.4 7.6 - 12.9 [facility] LABORATORY nRBC % Auto 0.0 % [facility] LABORATORY nRBC Abs Auto 0.000 0.000 - [facility] 0.000 [facility] x10(3)/[facility] LABORATORY Specimen Anatomical Collection Method Collection Time Receive d Time (Source) Location / / Volume Laterality Blood 02/14/2022 5:26 AM 2 5:45 EDT AM EDT Resulting Agency Comment Spec In Lab Veto Hidalgo MD HEMATOLOGY ORDERABLES Performing Organization Address City/State/[place] [address] (ABNORMAL) Basic Metabolic Panel (non-fasting) (02/14/2022 5:26 AM EDT) P athologist Signature Glucose Lvl 92 65 - 199 [facility] mg/dL [facility] LABORATORY Comment: Diabetes: >=200 mg/dL plus symp toms BUN 47 (H) 10 - 20 mg/dL [facility] LABORATORY Creatinine 4.06 (H) 0.80 - 1.50 mg/dL [facility] LABORATORY Comment: result rechecked-KS Sodium 127 (L) 135 - 145 mmol/L [facility] LABORATORY Potassium 4.4 3.5 - 5.0 mmol/L [facility] LABORATORY Comment: Please note: ??Patients with WBC >100,00 0 may have falsely elevated Potassium levels. ??For accurate Potassium quantif ication in these patients send serum separator tube (gold top) for subsequent determinations. ??Contact the Clinical Chemistry Laboratory if there are any qu estions. Chloride 91 (L) 98 - 107 mmol/L [facility] LABORATORY CO2 23 22 - 31 mmol/L [facility] LABORATORY Anion Gap 13 5 - 15 mmol/L [facility] LABORATORY Calcium 7.1 (L) 8.5 - 10.5 mg/dL [facility] LABORATORY Estimated GFR 19 (L) >=60 mL/min/1.73 m?? [facility] LABORATORY Comment: This patient's estimated [...] Novak MD CHEMISTRY ORDERABLES Performing Organization Address City/[facility]/[place] [address] (ABNORMAL) Phosphorus (02/14/2022 5:26 AM EDT) P athologist Signature Phosphorus 4.7 (H) 2.5 - 4.[address] [facility] mg/dL [facility] LABORATORY Specimen Anatomical Collection Method Collection Time Receive d Time (Source) Location / / Volume Laterality Blood 02/14/2022 5:26 AM 2 5:45 EDT AM EDT Resulting Agency Comment Spec In Lab Gela Novak MD CHEMISTRY ORDERABLES Performing Organization Address City/[facility]/[place] [address] Magnesium (02/14/2022 5:26 AM EDT) P athologist Signature Magnesium 0.80 0.69 - 1.07 [facility]/L [facility] LABORATORY Specimen Anatomical Collection Method Collection Time Receive d Time (Source) Location / / Volume Laterality Blood 02/14/2022 5:26 AM 2 5:45 EDT AM EDT Resulting Agency Comment Spec In Lab Gela Novak MD CHEMISTRY ORDERABLES Performing Organization Address City/[facility]/[place] [address] Femur w Contrast [...] who have questions please contact the health memory care program director that requested your imaging first. ? Narrative [...] ho have questions please contact the health memory care program director that requested your imaging first. Electronically signed by: Zander Hayes DO, [facility] ([phone]), at 02/13/2022 6:27 PM Parrish Betancourt MD [...] who have questions please contact the health memory care program director that requested your imaging first. ? Electronically signed by: Zander Hayes DO [facility] ([phone]), at 02/13/2022 6:27 PM Narrative 02/13/2022 6:27 [...] ho have questions please contact the health memory care program director that requested your imaging first. Electronically signed by: Zander Hayes DO, [facility] ([phone]), at 02/13/2022 6:27 PM Parrish Betancourt MD [...] who have questions please contact the health memory care program director that requested your imaging first. ? Electronically signed by: Mercedes Redding MD , [facility] ([phone]), at 02/13/2022 8:56 AM Narrative 02/13/2022 8:56 [...] ho have questions please contact the health memory care program director that requested your imaging first. Electronically signed by: Mercedes Redding MD , [facility] ([phone]), at 02/13/2022 8:56 AM Parrish Betancourt MD IMG DX ORDERABLES Scan, Peripheral Blood (02/13/2022 12:20 AM EDT) [facility] gist Method Time Signature Plat Estimate Normal [facility] LABORATORY RBC Morphology Abnormal [facility] Hypochromia Slight [facility] Clearwater Cells 1-5 /HPF [facility] Stippled RBCs Present >1/HPF [facility] Toxic Present [facility] LABORATORY Specimen Anatomical Collection Method Collection Time Receive d Time (Source) Location / / Volume Laterality Blood 02/13/2022 12:20 02/13/2022 AM EDT 12:37 AM EDT Resulting Agency Comment Spec In Lab Kaitlyn Rock MD HEMATOLOGY ORDERABLES Performing Organization Address City/State/[place] [address] (ABNORMAL) Differential, Automated (02/13/2022 12:20 AM EDT) [facility] Method Time Signature Neutrophils % 44.9 % [facility]ORATORY Neutr Abs (ANC) 11.00 (H) 1.70 - [facility] 6.10 [facility] x10(3)/[facility] LABORATORY Lymphocytes % 8.8 % [facility] LABORATORY Lymphocytes Abs 2.2 0.9 - 3.2 [facility] x10(3)/[facility] LABORATORY Monocytes % 9.3 % [facility] LABORATORY Monocyte Abs 2.3 (H) 0.3 - 0.9 [facility] x10(3)/[facility] LABORATORY Eosinophils % 2.6 % [facility]OR[facility]ORY Eosinophils Abs 0.6 (H) 0.0 - 0.4 [facility] x10(3)/[facility] LABORATORY Basophils % 0.3 % [facility] LABORATORY Basophils Abs 0.1 0.0 - 0.1 [facility] x10(3)/[facility] LABORATORY Immature Gran % 34.10 % [facility]ORATORY Comment: Immature granulocytes(IG's)percentage an d absolute count will include metamyelocytes, myelocytes, and promyelo cytes. Blood smears from CBCs yielding IG's will be scanned manually for concor dance. If this scan disagrees with the automated IG or if promyelocytes are not ed, a manual differential will be performed. Gemini Gran Abs 8.35 (H) 0.00 - 0.04 x10(3)/[facility] LABORATORY Specimen Anatomical Collection Method Collection Time Receive d Time (Source) Location / / Volume Laterality Blood 02/13/2022 12:20 02/13/2022 AM EDT 12:37 AM EDT Resulting Agency Comment Spec In Lab Kaitlyn Rock MD HEMATOLOGY ORDERABLES Performing Organization Address City/State/[place] [address] (ABNORMAL) Hemogram (02/13/2022 12:20 AM EDT) Analysis Performed At Patho logist Time Signature WBC 24.5 (H) 4.0 - 9.[address] [facility] x10(3)/[facility] LABORATORY RBC 2.72 (L) 4.58 - [facility] 5.54 [facility] x10(6)/[facility] LABORATORY Hemoglobin 8.0 (L) 13.7 - [facility] 16.5 g/dL [facility] LABORATORY Hematocrit 23.6 (L) 40.5 - [facility] 48.5 % [facility]ATORY MCV 86.8 82.9 - [facility] 93.1 [facility] LABORATORY MCH 29.4 27.5 - [facility] 32.1 pg [facility] LABORATORY MCHC 33.9 32.0 - [facility] 35.7 g/dL [facility] LABORATORY Platelets 201 145 - 357 [facility] x10(3)/[facility] LABORATORY RDWSD 48.3 (H) 36.0 - [facility] 45.0 [facility] LABORATORY RDWCV 15.4 (H) 11.4 - [facility] 13.8 % [facility] LABORATORY MPV 9.7 7.6 - 12.[address] [address] [facility] LABORATORY nRBC % Auto 0.0 % [facility] LABORATORY nRBC Abs Auto 0.000 0.000 - [facility] MANDO 0.000 [facility] x10(3)/[facility] LABORATORY Specimen Anatomical Collection Method Collection Time Receive d Time (Source) Location / / Volume Laterality Blood 02/13/2022 12:20 02/13/2022 AM EDT 12:37 AM EDT Resulting Agency Comment Spec In Lab Kaitlyn Rock MD HEMATOLOGY ORDERABLES Performing Organization Address City/[facility]/[place] [address] (ABNORMAL) Basic Metabolic Panel (non-fasting) (02/13/2022 12:20 AM EDT) P athologist Signature Glucose Lvl 120 65 - 199 [facility] mg/dL [facility] LABORATORY Comment: Diabetes: >=200 mg/dL plus symp toms BUN 30 (H) 10 - 20 mg/dL [facility] LABORATORY Creatinine 2.85 (H) 0.80 - 1.50 mg/dL [facility]OR[facility]ORY Comment: result rechecked-bm Sodium 127 (L) 135 - 145 mmol/L [facility] LABORATORY Potassium 3.8 3.5 - 5.0 mmol/L [facility] LABORATORY Comment: Please note: ??Patients with WBC >100,00 0 may have falsely elevated Potassium levels. ??For accurate Potassium quantif ication in these patients send serum separator tube (gold top) for subsequent determinations. ??Contact the Clinical Chemistry Laboratory if there are any qu estions. Chloride 94 (L) 98 - 107 mmol/L [facility] LABORATORY CO2 27 22 - 31 mmol/L [facility]OR[facility] Anion Gap 6 5 - 15 mmol/L [facility] LABORATORY Calcium 7.0 (L) 8.5 - 10.5 mg/dL [facility] LABORATORY Comment: result rechecked-bm Estimated GFR 30 (L) >=60 mL/min/1.73 m?? [facility] Comment: This patient's estimated [...] Organization Address City/State/[place] [address] Phosphorus (02/13/2022 12:20 AM EDT) P athologist Signature Phosphorus 2.8 2.5 - 4.5 [facility] mg/dL [facility] LABORATORY Specimen Anatomical Collection Method Collection Time Receive d Time (Source) Location / / Volume Laterality Blood 02/13/2022 12:20 02/13/2022 AM EDT 12:37 AM EDT Resulting Agency Comment Spec In Lab Gela Novak MD CHEMISTRY ORDERABLES Performing Organization Address City/[facility]/ZIP Code Phon e Number [address] Magnesium (02/13/2022 12:20 AM EDT) athologist Signature Magnesium 0.79 0.69 - 1.07 [facility] mmol/L [facility] LABORATORY Specimen Anatomical Collection Method Collection Time Receive d Time (Source) Location / / Volume Laterality Blood 02/13/2022 12:20 02/13/2022 AM EDT 12:37 AM EDT Resulting Agency Comment Spec In Lab Gela Novak MD CHEMISTRY ORDERABLES Performing Organization Address City/[facility]/[place] [address] (ABNORMAL) Sodium (02/12/2022 4:45 PM EDT) P athologist Signature Sodium 128 (L) 135 - 145 [facility] mmol/L [facility] LABORATORY Specimen Anatomical Collection Method Collection Time Receive d Time (Source) Location / / Volume Laterality Blood 02/12/2022 4:45 PM 5:17 EDT PM EDT Resulting Agency Comment Spec In Lab Parrish Betancourt MD CHEMISTRY ORDERABLES Performing Organization Address City/State/[place] [address] Prepare RBC (02/12/2022 9:55 AM EDT) P athologist Signature Dispensed? Yes [facility] LABORATORY Specimen Anatomical Collection Method Collection Time Receive d Time (Source) Location / / Volume Laterality Blood 02/12/2022 9:55 AM 2 9:53 EDT AM EDT Parrish Betancourt MD BLOOD BANK ORDERABLES Performing Organization Address City/State/ZIP Code Phon e Number [address] (ABNORMAL) Sodium (02/12/2022 9:16 AM EDT) P athologist Signature Sodium 125 (L) 135 - 145 [facility] mmol/L [facility] LABORATORY Specimen Anatomical Collection Method Collection Time Receive d Time (Source) Location / / Volume Laterality Blood 02/12/2022 9:16 AM 2 9:18 EDT AM EDT Resulting Agency Comment Spec In Lab Parrish Betancourt MD CHEMISTRY ORDERABLES Performing Organization Address City/[facility]/ZIP Code Phon e Number [address] (ABNORMAL) Differential, Automated (02/12/2022 12:30 AM EDT) Patholo gist Method Time Signature Neutrophils % 49.1 % [facility] LABORATORY Neutr Abs (ANC) 11.38 (H) 1.70 - [facility] 6.10 [facility] x10(3)/[facility] LABORATORY Lymphocytes % 8.6 % [facility] LABORATORY Lymphocytes Abs 2.0 0.9 - 3.2 [facility] x10(3)/[facility] LABORATORY Monocytes % 10.6 % [facility] LABORATORY Monocyte Abs 2.4 (H) 0.3 - 0.9 [facility] x10(3)/[facility] LABORATORY Eosinophils % 0.9 % [facility] LABORATORY Eosinophils Abs 0.2 0.0 - 0.4 [facility] x10(3)/[facility] LABORATORY Basophils % 0.3 % [facility] LABORATORY Basophils Abs 0.1 0.0 - 0.1 [facility] x10(3)/[facility] LABORATORY Immature Gran % 30.50 % [facility] LABORATORY Comment: Immature granulocytes(IG's)percentage an d absolute count will include metamyelocytes, myelocytes, and promyelo cytes. Blood smears from CBCs yielding IG's will be scanned manually for concor dance. If this scan disagrees with the automated IG or if promyelocytes are not ed, a manual differential will be performed. Gemini Gran Abs 7.06 (H) 0.00 - 0.04 x10(3)/[facility] LABORATORY Specimen Anatomical Collection Method Collection Time Receive d Time (Source) Location / / Volume Laterality Blood 02/12/2022 12:30 02/12/2022 1:03 AM EDT AM EDT Resulting Agency Comment Spec In Lab Kaitlyn Rock MD HEMATOLOGY ORDERABLES Performing Organization Address City/State/[place] [address] (ABNORMAL) Hemogram (02/12/2022 12:30 AM EDT) Analysis Performed At Patho logist Time Signature WBC 23.2 (H) 4.0 - 9.5 [facility] x10(3)/[facility] LABORATORY RBC 2.37 (L) 4.58 - [facility] 5.54 [facility] x10(6)/[facility] LABORATORY Hemoglobin 6.9 (L) 13.7 [facility] 16.5 g/dL [facility] LABORATORY Hematocrit 20.7 (L) 40.5 - [facility] 48.5 % [facility] LABORATORY MCV 87.3 82.9 - [facility] 93.1 [facility] LABORATORY MCH 29.1 27.5 - [facility] 32.1 pg [facility] LABORATORY MCHC 33.3 32.0 - [facility] 35.7 g/dL [facility] LABORATORY Platelets 166 145 - 357 [facility] x10(3)/[facility] LABORATORY RDWSD 49.0 (H) 36.0 - [facility] 45.0 [facility] LABORATORY RDWCV 15.5 (H) 11.4 - [facility] 13.8 % [facility] LABORATORY MPV 10.2 7.6 - 12.9 [facility] LABORATORY nRBC % Auto 0.0 % [facility] LABORATORY nRBC Abs Auto 0.000 0.000 - [facility] 0.000 [facility] x10(3)/[facility] LABORATORY Specimen Anatomical Collection Method Collection Time Receive d Time (Source) Location / / Volume Laterality Blood 02/12/2022 12:30 02/12/2022 1:03 AM EDT AM EDT Resulting Agency Comment Spec In Lab Kaitlyn Rock MD HEMATOLOGY ORDERABLES Performing Organization Address City/State/[place] [address] (ABNORMAL) Basic Metabolic Panel (non-fasting) (02/12/2022 12:30 AM EDT) athologist Signature Glucose Lvl 103 65 - 199 [facility] mg/dL [facility] LABORATORY Comment: Diabetes: >=200 mg/dL plus symp toms BUN 39 (H) 10 - 20 mg/dL [facility] LABORATORY Comment: result rechecked-EWR Creatinine 3.74 (H) 0.80 - 1.50 mg/dL [facility] LABOR[facility]ORY Comment: result rechecked-EWR Sodium 127 (L) 135 - 145 mmol/L [facility] LABORATORY Potassium 4.4 3.5 - 5.0 mmol/L [facility] LABORATORY Comment: Please note: ??Patients with WBC >100,00 0 may have falsely elevated Potassium levels. ??For accurate Potassium quantif ication in these patients send serum separator tube (gold top) for subsequent determinations. ??Contact the Clinical Chemistry Laboratory if there are any qu estions. Chloride 99 98 - 107 mmol/L [facility] LABORATORY CO2 21 (L) 22 - 31 mmol/L [facility]ORATORY Anion Gap 7 5 - 15 mmol/L [facility] LABORATORY Calcium 6.1 (Critical) 8.5 - 10.5 mg/dL [facility]ORY Comment: Called by: CLAUDIA, Read back by: Jesus Robertson, Date/Time:02/12/22 02:00. Estimated GFR 21 (L) >=60 mL/min/1.73 m?? [facility] LABOR[facility]ORY Comment: This patient's estimated [...] Novak MD CHEMISTRY ORDERABLES Performing Organization Address [facility] Phon e Number [address] Phosphorus (02/12/2022 12:30 AM EDT) P athologist Signature Phosphorus 2.7 2.5 - 4.[address] [address] mg/dL [facility] LABORATORY Specimen Anatomical Collection Method Collection Time Receive d Time (Source) Location / / Volume Laterality Blood 02/12/2022 12:30 02/12/2022 1:03 AM EDT AM EDT Resulting Agency Comment Spec In Lab Gela Novak MD CHEMISTRY ORDERABLES Performing Organization Address City/[facility]/ZIP Code Phon e Number [address] Magnesium (02/12/2022 12:30 AM EDT) P athologist Signature Magnesium 0.79 0.69 - 1.07 [facility] mmol/L [facility] LABORATORY Specimen Anatomical Collection Method Collection Time Receive d Time (Source) Location / / Volume Laterality Blood 02/12/2022 12:30 02/12/2022 1:03 AM EDT AM EDT Resulting Agency Comment Spec In Lab Gela Novak MD CHEMISTRY ORDERABLES Performing Organization Address City/[facility]/[place] [address] (ABNORMAL) Albumin Level (02/12/2022 12:30 AM EDT) P athologist Signature Albumin 1.3 (L) 3.2 - 5.2 [facility] g/dL [facility] LABORATORY Specimen Anatomical Collection Method Collection Time Receive d Time (Source) Location / / Volume Laterality Blood 02/12/2022 12:30 02/12/2022 1:03 AM EDT AM EDT Resulting Agency Comment Spec In Lab Parrish Betancourt MD CHEMISTRY ORDERABLES Performing Organization Address City/[facility]/ZIP Code Phon e Number [address] (ABNORMAL) Prealbumin (02/12/2022 12:30 AM EDT) athologist Signature Prealbumin 15 (L) 20 - [address] [facility] [address] mg/dL [facility] LABORATORY Comment: Prealbumin levels are generally lower in the pediatric population; adult concentrations are usually attained near puberty. Specimen Anatomical Collection Method Collection Time Receive d Time (Source) Location / / Volume Laterality Blood 02/12/2022 12:30 02/12/2022 1:03 AM EDT AM EDT Resulting Agency Comment Spec In Lab Parrish Betancourt MD CHEMISTRY ORDERABLES Performing Organization Address City/[facility]/ZIP [facility] [place] [address] SCAN DOC: LAB (02/12/2022 [...] who have questions please contact the health memory care program director that requested your imaging first. ? Narrative [...] ho have questions please contact the health memory care program director that requested your imaging first. Parrish Betancourt MD IMG MRI ORDERABLES (ABNORMAL) Sodium (02/11/2022 4:09 PM EDT) athologist Signature Sodium 129 (L) 135 - 145 [facility] mmol/L [facility] LABORATORY Specimen Anatomical Collection Method Collection Time Receive d Time (Source) Location / / Volume Laterality Blood 02/11/2022 4:09 PM 2 4:33 EDT PM EDT Resulting Agency Comment Spec In Lab Parrish Betancourt MD CHEMISTRY ORDERABLES Performing Organization Address City/State/[place] [address] (ABNORMAL) Sodium (02/11/2022 8:20 AM EDT) P athologist Signature Sodium 127 (L) 135 - [address] [address] mmol/L [facility] LABORATORY Specimen Anatomical Collection Method Collection Time Receive d Time (Source) Location / / Volume Laterality Blood 02/11/2022 8:20 AM 2 8:39 EDT AM EDT Resulting Agency Comment Spec In Lab Parrish Betancourt MD CHEMISTRY ORDERABLES Performing Organization Address City/[facility]/ZIP Code Phon e Number [address] Scan, Peripheral Blood (02/11/2022 12:37 AM EDT) [facility] Method Time Signature Plat Estimate Decreased [facility]ORATORY RBC Morphology Abnormal [facility]ORY Polychromasia Present >5/HPF [facility]OR[facility]ORY Ovalocytes 1-5 /HPF [facility] Stippled RBCs Present >1/HPF [facility]OR[facility]ORY Dohle Bodies Present [facility] LABORATORY Specimen Anatomical Collection Method Collection Time Receive d Time (Source) Location / / Volume Laterality Blood 02/11/2022 12:37 02/11/2022 AM EDT 12:47 AM EDT Resulting Agency Comment Spec In Lab Jeanette Escamilla APRN HEMATOLOGY ORDERABLES Performing Organization Address City/[facility]/ZIP Code Phon e Number [address] Green Tube HOLD (02/11/2022 12:37 AM EDT) P athologist Signature Green Hold Sample in [facility] LABORATORY Specimen Anatomical Collection Method Collection Time Receive d Time (Source) Location / / Volume Laterality Blood Venous Draw / 02/11/2022 12:37 02/11/2022 Unknown AM EDT 12:48 AM EDT Jeanette Escamilla APRN CHEMISTRY ORDERABLES Performing Organization Address City/[facility]/[place] [address] (ABNORMAL) Differential, Automated (02/11/2022 12:37 AM EDT) [facility] Method Time Signature Neutrophils % 39.1 % [facility] LABORATORY Neutr Abs (ANC) 7.07 (H) 1.70 - [facility] 6.10 [facility] x10(3)/[facility] L LABORATORY Lymphocytes % 12.7 % [facility] LABORATORY Lymphocytes Abs 2.3 0.9 - 3.2 [facility] x10(3)/[facility] LABORATORY Monocytes % 11.4 % [facility] LABORATORY Monocyte Abs 2.1 (H) 0.3 - 0.9 [facility] x10(3)/[facility] LABORATORY Eosinophils % 2.9 % [facility] LABORATORY Eosinophils Abs 0.5 (H) 0.0 - 0.4 [facility] x10(3)/[facility] LABORATORY Basophils % 0.5 % [facility] LABORATORY Basophils Abs 0.1 0.0 - 0.1 [facility] x10(3)/[facility] LABORATORY Immature Gran % 33.40 % [facility] LABORATORY Comment: Immature granulocytes(IG's)percentage an d absolute count will include metamyelocytes, myelocytes, and promyelo cytes. Blood smears from CBCs yielding IG's will be scanned manually for concor dance. If this scan disagrees with the automated IG or if promyelocytes are not ed, a manual differential will be performed. Gemini Gran Abs 6.04 (H) 0.00 - 0.04 x10(3)/[facility] LABORATORY Specimen Anatomical Collection Method Collection Time Receive d Time (Source) Location / / Volume Laterality Blood 02/11/2022 12:37 02/11/2022 AM EDT 12:47 AM EDT Resulting Agency Comment Spec In Lab Jeanette Escamilla APRN HEMATOLOGY ORDERABLES Performing Organization Address City/State/[place] [address] (ABNORMAL) Hemogram (02/11/2022 12:37 AM EDT) Analysis Performed At Patho logist Time Signature WBC 18.1 (H) 4.0 - 9.5 [facility] x10(3)/[facility] LABORATORY RBC 2.44 (L) 4.58 - [facility] 5.54 [facility] x10(6)/[facility] LABORATORY Hemoglobin 7.0 (L) 13.7 - [facility] g/dL [facility] LABORATORY Hematocrit 21.0 (L) 40.5 - [facility] 48.5 % [facility] LABORATORY MCV 86.1 82.9 - [facility] 93.1 [facility] LABORATORY MCH 28.7 27.5 - [facility] 32.1 pg [facility] LABORATORY MCHC 33.3 32.0 - [facility] 35.7 g/dL [facility] LABORATORY Platelets 140 (L) 145 - 357 [facility] x10(3)/[facility] LABORATORY RDWSD 50.0 (H) 36.0 - [facility] 45.0 [facility] LABORATORY RDWCV 15.9 (H) 11.4 - [facility] 13.8 % [facility] LABORATORY MPV 10.0 7.6 - 12.9 [facility] LABORATORY nRBC % Auto 0.0 % [facility] [facility] nRBC Abs Auto 0.000 0.000 - [facility] x10(3)/[facility] LABORATORY Specimen Anatomical Collection Method Collection Time Receive d Time (Source) Location / / Volume Laterality Blood 02/11/2022 12:37 02/11/2022 AM EDT 12:47 AM EDT Resulting Agency Comment Spec In Lab Jeanette Escamilla APRN HEMATOLOGY ORDERABLES Performing Organization Address City/State/[place] [address] (ABNORMAL) Basic Metabolic Panel (non-fasting) (02/11/2022 12:37 AM EDT) P athologist Signature Glucose Lvl 125 65 - 199 [facility] mg/dL [facility] Comment: Diabetes: >=200 mg/dL plus symp toms BUN 23 (H) 10 - 20 mg/dL [facility] Creatinine 2.42 (H) 0.80 - 1.50 mg/dL [facility] Sodium 128 (L) 135 - 145 mmol/L [facility] Potassium 3.8 3.5 - 5.0 mmol/L [facility] Comment: Please note: ??Patients with WBC >100,00 0 may have falsely elevated Potassium levels. ??For accurate Potassium quantif ication in these patients send serum separator tube (gold top) for subsequent determinations. ??Contact the Clinical Chemistry Laboratory if there are any qu estions. Chloride 96 (L) 98 - 107 mmol/L [facility] CO2 26 22 - 31 mmol/L [facility] Anion Gap 6 5 - 15 mmol/L [facility] Calcium 6.4 (Critical) 8.5 - 10.5 mg/dL [facility] Comment: Called by: kvng, Read back by: sakshi abreu, Date/Time:02/11/22 01:43.l Estimated GFR 36 (L) >=60 mL/min/1.73 m?? [facility] Comment: This patient's estimated [...] Organization Address City/State/[place] [address] (ABNORMAL) Phosphorus (02/11/2022 12:37 AM EDT) P athologist Signature Phosphorus 2.1 (L) 2.5 - 4.5 [facility] mg/dL [facility] Specimen Anatomical Collection Method Collection Time Receive d Time (Source) Location / / Volume Laterality Blood 02/11/2022 12:37 02/11/2022 AM EDT 12:47 AM EDT Resulting Agency Comment Spec In Lab Gela Novak MD CHEMISTRY ORDERABLES Performing Organization Address City/State/[place] [address] Magnesium (02/11/2022 12:37 AM EDT) athologist Signature Magnesium 0.75 0.69 - 1.07 [facility] mmol/L [facility] Specimen Anatomical Collection Method Collection Time Receive d Time (Source) Location / / Volume Laterality Blood 02/11/2022 12:37 02/11/2022 AM EDT 12:47 AM EDT Resulting Agency Comment Spec In Lab Gela Novak MD CHEMISTRY ORDERABLES Performing Organization Address City/[facility]/[place] [address] (ABNORMAL) Sodium (02/10/2022 4:47 PM EDT) athologist Signature Sodium 132 (L) 135 - 145 [facility] mmol/L [facility] Specimen Anatomical Collection Method Collection Time Receive d Time (Source) Location / / Volume Laterality Blood 02/10/2022 4:47 PM 5:02 EDT PM EDT Resulting Agency Comment Spec In Lab Parrish Betancourt MD CHEMISTRY ORDERABLES Performing Organization Address City/[facility]/[place] [address] (ABNORMAL) Sodium (02/10/2022 9:05 AM EDT) athologist Signature Sodium 129 (L) 135 - [address] [facility] [address] mmol/L [facility] Specimen Anatomical Collection Method Collection Time Receive d Time (Source) Location / / Volume Laterality Blood Venous Draw / 02/10/2022 9:05 AM 02/11/20 9:36 Unknown EDT AM EDT Resulting Agency Comment Spec In Lab Kaitlyn Rock MD CHEMISTRY ORDERABLES Performing Organization Address City/[facility]/[place] [address] Scan, Peripheral Blood (02/10/2022 12:00 AM EDT) [facility] gist Method Time Signature Plat Estimate Decreased [facility] RBC Morphology Abnormal [facility] Polychromasia Present >5/HPF [facility] Ovalocytes 1-5 /HPF [facility] Clearwater Cells 1-5 /HPF [facility] Stippled RBCs Present >1/HPF [facility] Dohle Bodies Present [facility] Giant Platelets Less than 1 /HPF [facility] Specimen (Source) Anatomical Collection Method Collection Time Re ceived Time Location / / Volume Laterality Blood 02/10/2022 02/10/2022 12:4 0 AM EDT Resulting Agency Comment Spec In Lab Kaitlyn Rock MD HEMATOLOGY ORDERABLES Performing Organization Address City/State/[place] [address] (ABNORMAL) Differential, Automated (02/10/2022 12:00 AM EDT) [facility] gist Method Time Signature Neutrophils % 52.5 % [facility] Neutr Abs (ANC) 8.47 (H) 1.70 - [facility] 6.10 [facility] x10(3)/[facility] LABORATORY Lymphocytes % 12.2 % [facility] Lymphocytes Abs 2.0 0.9 - 3.2 [facility] x10(3)/[facility] LABORATORY Monocytes % 17.3 % [facility] Monocyte Abs 2.8 (H) 0.3 - 0.9 [facility] x10(3)/[facility] LABORATORY Eosinophils % 2.5 % [facility] Eosinophils Abs 0.4 0.0 - 0.4 [facility] x10(3)/[facility] LABORATORY Basophils % 0.4 % [facility] Basophils Abs 0.1 0.0 - 0.1 [facility] x10(3)/[facility] LABORATORY Immature Gran % 15.10 % [facility] Comment: Immature granulocytes(IG's)percentage an d absolute count will include metamyelocytes, myelocytes, and promyelo cytes. Blood smears from CBCs yielding IG's will be scanned manually for concor dance. If this scan disagrees with the automated IG or if promyelocytes are not ed, a manual differential will be performed. Gemini Gran Abs 2.44 (H) 0.00 - 0.04 x10(3)/[facility] LABORATORY Specimen (Source) Anatomical Collection Method Collection Time Re ceived Time Location / / Volume Laterality Blood 02/10/2022 02/10/2022 12:4 0 AM EDT Resulting Agency Comment Spec In Lab Kaitlyn Rock MD HEMATOLOGY ORDERABLES Performing Organization Address City/State/[place] [address] (ABNORMAL) Hemogram (02/10/2022 12:00 AM EDT) Analysis Performed At Patho logist Time Signature WBC 16.1 (H) 4.0 - 9.5 [facility] x10(3)/[facility] LABORATORY RBC 2.96 (L) 4.58 - [facility] 5.54 [facility] x10(6)/[facility] LABORATORY Hemoglobin 8.6 (L) 13.7 - [facility] 16.5 g/dL [facility] Hematocrit 25.2 (L) 40.5 - [facility] 48.5 % [facility] MCV 85.1 82.9 - [facility] 93.1 [facility] LABORATORY MCH 29.1 27.5 - [facility] 32.1 pg [facility] MCHC 34.1 32.0 - [facility] 35.7 g/dL [facility] Platelets 121 (L) 145 - 357 [facility] x10(3)/[facility] LABORATORY RDWSD 50.4 (H) 36.0 - [facility] 45.0 [facility] LABORATORY RDWCV 16.4 (H) 11.4 - [facility] 13.8 % [facility] MPV 10.6 7.6 - 12.9 [facility] LABORATORY nRBC % Auto 0.0 % [facility] nRBC Abs Auto 0.000 0.000 - [facility] 0.000 [facility] x10(3)/[facility] LABORATORY Specimen (Source) Anatomical Collection Method Collection Time Re ceived Time Location / / Volume Laterality Blood 02/10/2022 02/10/2022 12:4 0 AM EDT Resulting Agency Comment Spec In Lab Kaitlyn Rock MD HEMATOLOGY ORDERABLES Performing Organization Address City/[facility]/ZIP Code Phon e Number [address] Phosphorus (02/10/2022 12:00 AM EDT) P athologist Signature Phosphorus 3.1 2.5 - 4.5 [facility]dL [facility] Specimen (Source) Anatomical Collection Method Collection Time Re ceived Time Location / / Volume Laterality Blood 02/10/2022 02/10/2022 12:4 0 AM EDT Resulting Agency Comment Spec In Lab Gela Novak MD CHEMISTRY ORDERABLES Performing Organization Address City/[facility]/ZIP Code Phon e Number [address] Magnesium (02/10/2022 12:00 AM EDT) P athologist Signature Magnesium 0.87 0.69 - 1.07 [facility] mmol/L [facility] Specimen (Source) Anatomical Collection Method Collection Time Re ceived Time Location / / Volume Laterality Blood 02/10/2022 02/10/2022 12:4 0 AM EDT Resulting Agency Comment Spec In Lab Gela Novak MD CHEMISTRY ORDERABLES Performing Organization Address City/[facility]/[place] [address] (ABNORMAL) Basic Metabolic Panel (non-fasting) (02/10/2022 12:00 AM EDT) P athologist Signature Glucose Lvl 164 65 - 199 [facility] mg/dL [facility] Comment: Diabetes: >=200 mg/dL plus symp toms BUN 21 (H) 10 - 20 mg/dL [facility] Creatinine 1.89 (H) 0.80 - 1.50 mg/dL [facility] Sodium 130 (L) 135 - 145 mmol/L [facility] Potassium 3.9 3.5 - 5.0 mmol/L [facility] Comment: Please note: ??Patients with WBC >100,00 0 may have falsely elevated Potassium levels. ??For accurate Potassium quantif ication in these patients send serum separator tube (gold top) for subsequent determinations. ??Contact the Clinical Chemistry Laboratory if there are any qu estions. Chloride 96 (L) 98 - 107 mmol/L [facility] CO2 22 22 - 31 mmol/L [facility] Anion Gap 12 5 - 15 mmol/L [facility] Calcium 7.2 (L) 8.5 - 10.5 mg/dL [facility] Estimated GFR 48 (L) >=60 mL/min/1.73 m?? [facility] Comment: This patient's estimated [...] Organization Address City/State/[place] [address] (ABNORMAL) Blood Gas Arterial (NLH) (02/09/2022 5:43 PM EDT) Analysis Performed At Patho logist Time Signature pH Art 7.46 (H) 7.35 - [facility] 7.45 [facility] pCO2 Art 35 35 - 45 [facility] LABORATORY pO2 Art 73 (L) 85 - 104 [facility] mmHg [facility] HCO3 Art 24.8 20.0 - [facility] 26.0 [facility] mmol/[facility] LABORATORY BE Art 1.1 -3.0 - 3.0 [facility] mmol/L [facility] Hgb Blood Gas 9.2 (L) 13.7 - [facility] 16.5 g/dL [facility] O2HB Art 94.9 94.0 - [facility] 97.0 % [facility] COHB Art 0.5 % [facility] Comment: Nonsmokers: ??0.5-1.5% COHB Smokers: ??Variable, but usually less th an 10% Toxic: 20 - 30% COHB Lethal: ??Greater than 60% COHB METHB Art 0.3 <=1.5 % [facility] Na Whole Blood 126 (L) 135 - 145 mmol/L [facility] K Whole Blood 4.2 3.5 - 5.0 mmol/L [facility] Comment: Please note: ??Patients with WBC >100,00 0 may have falsely elevated Potassium levels. ??Contact the Clinical Chemistry Laboratory if there are any questions. ICa Whole Blood 1.12 (L) 1.15 - 1.33 mmol/L [facility] Comment: Note: ??Total bilirubin higher than 20 m g/dL may lead to falsely low ionized calcium. CL Whole Blood 100 98 - 107 mmol/L [facility] Gluc Whole Bld 97 65 - 199 mg/dL [facility] Comment: Diabetes: >=200 mg/dL plus symp toms. Lactate WB 1.1 0.5 - 2.2 mmol/L [facility] LABOR[facility]ORY Specimen Anatomical Collection Method Collection Time Receive d Time (Source) Location / / Volume Laterality Blood Arterial Draw / 02/09/2022 5:43 PM 2021 5:43 Unknown EDT PM EDT Resulting Agency Comment Spec In Lab Kaitlyn Rock MD CHEMISTRY ORDERABLES Performing Organization Address City/State/[place] [address] Phosphorus (02/09/2022 5:35 PM EDT) athologist Signature Phosphorus 3.2 2.5 - 4.[address] [facility] mg/dL [facility] Specimen Anatomical Collection Method Collection Time Receive d Time (Source) Location / / Volume Laterality Blood 02/09/2022 5:35 PM 2 5:44 EDT PM EDT Resulting Agency Comment Spec In Lab Parrish Betancourt MD CHEMISTRY ORDERABLES Performing Organization Address City/[facility]/[place] [address] (ABNORMAL) Electrolytes panel (02/09/2022 5:35 PM EDT) athologist Signature Sodium 132 (L) 135 - 145 [facility] mmol/L [facility] Potassium 4.3 3.5 - 5.0 [facility] mmol/L [facility] Comment: Please note: ??Patients with WBC >100,00 0 may have falsely elevated Potassium levels. ??For accurate Potassium quantif ication in these patients send serum separator tube (gold top) for subsequent determinations. ??Contact the Clinical Chemistry Laboratory if there are any qu estions. Chloride 100 98 - 107 mmol/L [facility] CO2 21 (L) 22 - 31 mmol/L [facility] Anion Gap 11 5 - 15 mmol/L [facility]OR[facility]ORY Specimen Anatomical Collection Method Collection Time Receive d Time (Source) Location / / Volume Laterality Blood 02/09/2022 5:35 PM 2 5:44 EDT PM EDT Resulting Agency Comment Spec In Lab Parrish Betancourt MD CHEMISTRY ORDERABLES Performing Organization Address City/[facility]/[place] [address] (ABNORMAL) Sodium (02/09/2022 5:35 PM EDT) athologist Signature Sodium 132 (L) 135 - [address] [facility] mmol/L [facility]ORY Specimen Anatomical Collection Method Collection Time Receive d Time (Source) Location / / Volume Laterality Blood 02/09/2022 5:35 PM 2 5:44 EDT PM EDT Resulting Agency Comment Spec In Lab Parrish Betancourt MD CHEMISTRY ORDERABLES Performing Organization Address City/[facility]/[place] [address] Anaerobic Culture (02/09/2022 4:26 PM EDT) [facility] Method Time Signature Anaerobic No anaerobic [facility] Culture organisms [facility] LABORATORY Specimen Anatomical Collection Method Collection Time Receive d Time (Source) Location / / Volume Laterality Thigh 02/09/2022 4:26 PM 2 5:23 EDT PM EDT Comment: Left thigh Resulting Agency Comment Spec In Lab Jeanette Chatterjee MD MICROBIOLOGY - GENERAL ORDER JT Performing Organization Address [facility] [place] [address] (ABNORMAL) Tissue culture (02/09/2022 4:26 PM EDT) Component Value Ref Test Analysis Performed At [facility] Range Method Time Signature Tissue Few Pseudomonas aeruginosa MAR Y Culture Few Serratia marcescens [facility] Susceptibilities previously reported [facility] Gram Stain Many Neutrophils seen [facility] Moderate Gram Negative Rods seen [employer] Results called to and read back by Lilibeth Dial RN [facility] 02/09/22 18:20:09 [facility] ( LABORATORY Organism Pseudomonas JOSH aeruginosa (A) [facility]ORY Organism Serratia marcescens [facility] (A) [facility] Organism Gram Negative Rods [facility] (A) [facility]ORY Specimen Anatomical Collection Method Collection Time Receive d Time (Source) Location / / Volume Laterality Thigh 02/09/2022 4:26 PM 2 5:23 EDT PM EDT Comment: Left thigh Resulting Agency Comment Spec In Lab Jeanette Chatterjee MD MICROBIOLOGY - GENERAL ORDER JT Performing Organization Address City/[facility] [place] [address] (ABNORMAL) Sodium (02/09/2022 12:29 PM EDT) athologist Signature Sodium 132 (L) 135 - 145 [facility] mmol/L [facility]ORY Specimen Anatomical Collection Method Collection Time Receive d Time (Source) Location / / Volume Laterality Blood 02/09/2022 12:29 02/09/2022 PM EDT 12:29 PM EDT Resulting Agency Comment Spec In Lab Parrish Betancourt MD CHEMISTRY ORDERABLES Performing Organization Address City/State/[place] [address] (ABNORMAL) Blood Gas Arterial ([facility]) (02/09/2022 12:20 PM EDT) Analysis Performed At Patho logist Time Signature pH Art 7.47 (H) 7.35 - [facility] 7.45 [facility] pCO2 Art 33 (L) 35 - 45 [facility] mmHg [facility]ORY pO2 Art 105 (H) 85 - 104 [facility] LABORATORY HCO3 Art 23.6 20.0 - [facility] 26.0 [facility] mmol/[facility] LABORATORY BE Art -0.1 -3.0 - 3.0 [facility] mmol/L [facility]ORY Hgb Blood Gas 9.6 (L) 13.7 - [facility] 16.5 g/dL [facility] O2HB Art 97.2 (H) 94.0 - [facility] 97.0 % [facility] COHB Art 0.8 % [facility] Comment: Nonsmokers: ??0.5-1.5% COHB Smokers: ??Variable, but usually less th an 10% Toxic: 20 - 30% COHB Lethal: ??Greater than 60% COHB METHB Art 0.3 <=1.5 % [facility] Na Whole Blood 126 (L) 135 - 145 mmol/L [facility] K Whole Blood 4.2 3.5 - 5.0 mmol/L [facility] Comment: Please note: ??Patients with WBC >100,00 0 may have falsely elevated Potassium levels. ??Contact the Clinical Chemistry Laboratory if there are any questions. ICa Whole Blood 1.16 1.15 - 1.33 mmol/L [facility] Comment: Note: ??Total bilirubin higher than 20 m g/dL may lead to falsely low ionized calcium. CL Whole Blood 99 98 - 107 mmol/L [facility] Gluc Whole Bld 97 65 - 199 mg/dL [facility] Comment: Diabetes: >=200 mg/dL plus symp toms. Lactate WB 1.1 0.5 - 2.2 mmol/L [facility]OR[facility] FIO2 Art 21 % [facility] PF Ratio Art 500 [facility] LAB[facility]ORY Temp Art 36.6 Celsius [facility]OR[facility] Specimen Anatomical Collection Method Collection Time Receive d Time (Source) Location / / Volume Laterality Blood Arterial Draw / 02/09/2022 12:20 02/10/20 22 Unknown PM EDT 12:27 PM EDT Resulting Agency Comment Spec In Lab Kaitlyn Rock MD CHEMISTRY ORDERABLES Performing Organization Address [facility]/ZIP [facility] Phon e Number [address] Phosphorus (02/09/2022 10:08 AM EDT) P athologist Signature Phosphorus 3.1 2.5 - 4.[address] [facility] mg/dL [facility]ORY Specimen Anatomical Collection Method Collection Time Receive d Time (Source) Location / / Volume Laterality Blood 02/09/2022 10:08 02/09/2022 AM EDT 10:34 AM EDT Resulting Agency Comment Spec In Lab Parrish Betancourt MD CHEMISTRY ORDERABLES Performing Organization Address City/[facility]/ZIP Code Phon e Number [address] Phosphorus (02/09/2022 6:25 AM EDT) P athologist Signature Phosphorus 2.6 2.5 - 4.5 [facility]/dL [facility]ORY Specimen Anatomical Collection Method Collection Time Receive d Time (Source) Location / / Volume Laterality Blood 02/09/2022 6:25 AM 6:48 EDT AM EDT Resulting Agency Comment Spec In Lab Parrish Betancourt MD CHEMISTRY ORDERABLES Performing Organization Address City/State/ZIP Code Phon e Number [address] (ABNORMAL) Sodium (02/09/2022 6:25 AM EDT) P athologist Signature Sodium 130 (L) 135 - 145 [facility] mmol/L [facility]ORATORY Specimen Anatomical Collection Method Collection Time Receive d Time (Source) Location / / Volume Laterality Blood 02/09/2022 6:25 AM 2 6:48 EDT AM EDT Resulting Agency Comment Spec In Lab Parrish Betancourt MD CHEMISTRY ORDERABLES Performing Organization Address City/State/ZIP Code Phon e Number [address] Transfuse RBC (02/09/2022 5:45 AM EDT) Parrish Betancourt MD NURSING TREATMENT ORDERABLES - BLOOD ADMIN Transfuse RBC (02/09/2022 5:45 AM EDT) Parrish Betancourt MD NURSING TREATMENT ORDERABLES - BLOOD ADMIN Type and Screen Validity (02/09/2022 2:30 AM EDT) [facility] Method Time Signature T&S only valid [facility] LABORATORY Comment: This Type and Screen result is only valid at the [facility] Specimen Anatomical Collection Method Collection Time Receive d Time (Source) Location / / Volume Laterality Blood 02/09/2022 2:30 AM 2 2:47 EDT AM EDT Resulting Agency Comment Spec In Lab Thomas Daniel MD BLOOD BANK ORDERABLES Performing Organization Address City/State/ZIP Code Phon e Number [address] ABORH Recheck Status (02/09/2022 2:30 AM EDT) [facility] gist Method Time Signature ABORH Type Completed [facility] LABORATORY Specimen Anatomical Collection Method Collection Time Receive d Time (Source) Location / / Volume Laterality Blood 02/09/2022 2:30 AM 2 2:47 EDT AM EDT Resulting Agency Comment Spec In Lab Thomas Daniel MD BLOOD BANK ORDERABLES Performing Organization Address City/[facility]/[place] [address] Antibody screen (02/09/2022 2:30 AM EDT) Patholo gist Method Time Signature Ab Screen Negative [facility] LABORATORY Expires at 02/12/2022 [facility] 0192 on: [facility]ORY Specimen Anatomical Collection Method Collection Time Receive d Time (Source) Location / / Volume Laterality Blood 02/09/2022 2:30 AM 2 2:47 EDT AM EDT Resulting Agency Comment Spec In Lab Thomas Daniel MD BLOOD BANK ORDERABLES Performing Organization Address City/[facility]/ZIP Code Phon e Number [address] ABO/Rh Typing (02/09/2022 2:30 AM EDT) P athologist Signature ABORh Type A Pos [facility] LABORATORY Specimen Anatomical Collection Method Collection Time Receive d Time (Source) Location / / Volume Laterality Blood 02/09/2022 2:30 AM 2 2:47 EDT AM EDT Resulting Agency Comment Spec In Lab Thomas Daniel MD BLOOD BANK ORDERABLES Performing Organization Address City/[facility]/[place] [address] Prepare RBC (02/09/2022 2:20 AM EDT) P athologist Signature Dispensed? Yes [facility] LABORATORY Specimen Anatomical Collection Method Collection Time Receive d Time (Source) Location / / Volume Laterality Blood 02/09/2022 2:20 AM 2 2:21 EDT AM EDT Parrish Betancourt MD BLOOD BANK ORDERABLES Performing Organization Address City/[facility]/[place] [address] (ABNORMAL) BLOOD GAS 2 ARTERIAL (02/09/2022 1:02 AM EDT) Analysis Performed At Patho logist Time Signature pH Art 7.49 (H) 7.35 - [facility] 7.45 [facility] LABORATORY pCO2 Art 30 (L) 35 - 45 [facility] mmHg [facility] LABORATORY pO2 Art 92 85 - 104 [facility] LABORATORY HCO3 Art 22.5 20.0 - [facility] 26.0 [facility] mmol/L [facility] LABORATORY BE Art -0.9 -3.0 - 3.0 [facility] mmol/L [facility] LABORATORY Hgb Blood Gas 8.1 (L) 13.7 - [facility] 16.5 g/dL [facility] O2HB Art 95.1 94.0 - [facility] 97.0 % [facility] LABORATORY COHB Art 0.3 % [facility] LABOR[facility] Comment: Nonsmokers: 0.5-1.5% COHB Smokers: Variable, but usually less than 10% Toxic: 20-30% COHB Lethal: Greater than 60% COHB METHB Art 1.0 <=1.5 % [facility] LABORATORY Na Whole Blood 122 (L) 135 - 145 mmol/L [facility]ORAT[facility] K Whole Blood 3.9 3.5 - 5.0 mmol/L [facility] LABORATORY Comment: Please note: Patients with WBC >100,000 may have falsely elevated Potassium levels. Contact the Clinical Chemistry L aboratory if there are any questions. ICa Whole Blood 1.18 1.15 - 1.33 mmol/L [facility] LABORAT[facility] Comment: Note: ??Total bilirubin higher than 20 m g/dL may lead to falsely low ionized calcium. CL Whole Blood 98 98 - 107 mmol/L [facility] LABORATORY Gluc Whole Bld 125 65 - 199 mg/dL [facility] LABORATORY Comment: Diabetes: >=200 mg/dL plus symp toms. Lactate WB 2.2 0.5 - 2.2 mmol/L [facility] LABORATORY Specimen Anatomical Collection Method Collection Time Receive d Time (Source) Location / / Volume Laterality Blood 02/09/2022 1:02 AM 1:02 EDT AM EDT Parrish Betancourt MD CHEMISTRY ORDERABLES Performing Organization Address City/State/ZIP Code Phon e Number [address] Scan, Peripheral Blood (02/09/2022 12:55 AM EDT) [facility] [employer] Method Time Signature Plat Estimate Decreased [facility]OR[facility] RBC Morphology Abnormal [facility] Polychromasia Present >5/HPF [facility] Ovalocytes 1-5 /HPF [facility] Angel Cells 1-5 /HPF [facility] LABOR[facility]ORY Stippled RBCs Present >1/HPF [facility] Pappenheimer Bdy Present >1/HPF [facility] LABORAT[facility] Dohle Bodies Present [facility]ORAT[facility] Giant Platelets Less than 1 /HPF [facility]ORAT[facility] Specimen Anatomical Collection Method Collection Time Receive d Time (Source) Location / / Volume Laterality Blood 02/09/2022 12:55 02/09/2022 1:07 AM EDT AM EDT Resulting Agency Comment Spec In Lab Kaitlyn Rock MD HEMATOLOGY ORDERABLES Performing Organization Address City/State/ZIP Code Phon e Number [address] (ABNORMAL) Differential, Automated (02/09/2022 12:55 AM EDT) [facility] [employer] Method Time Signature Neutrophils % 57.4 % [facility] LABORATORY Neutr Abs (ANC) 7.26 (H) 1.70 - [facility] 6.10 [facility] x10(3)/[facility] LABORATORY Lymphocytes % 10.1 % [facility] LABORATORY Lymphocytes Abs 1.3 0.9 - 3.2 [facility] x10(3)/[facility] LABORATORY Monocytes % 17.7 % [facility] LABORATORY Monocyte Abs 2.2 (H) 0.3 - 0.9 [facility] x10(3)/[facility] LABORATORY Eosinophils % 1.3 % [facility] LABORATORY Eosinophils Abs 0.2 0.0 - 0.4 [facility] x10(3)/[facility] LABORATORY Basophils % 0.4 % [facility] LABORATORY Basophils Abs 0.0 0.0 - 0.1 [facility] x10(3)/[facility] LABORATORY Immature Gran % 13.10 % [facility] LABORATORY Comment: Immature granulocytes(IG's)percentage an d absolute count will include metamyelocytes, myelocytes, and promyelo cytes. Blood smears from CBCs yielding IG's will be scanned manually for concor dance. If this scan disagrees with the automated IG or if promyelocytes are not ed, a manual differential will be performed. Gemini Gran Abs 1.65 (H) 0.00 - 0.04 x10(3)/[facility] LABORATORY Specimen Anatomical Collection Method Collection Time Receive d Time (Source) Location / / Volume Laterality Blood 02/09/2022 12:55 02/09/2022 1:07 AM EDT AM EDT Resulting Agency Comment Spec In Lab Kaitlyn Rock MD HEMATOLOGY ORDERABLES Performing Organization Address City/State/ZIP Code Phon e Number [place] [id number]OS[address] LAB[address]ORY Drive (ABNORMAL) Hemogram (02/09/2022 12:55 AM EDT) [facility] gist Method Time Signature WBC 12.6 (H) 4.0 - 9.5 [facility] x10(3)/[facility] LABORATORY RBC 2.46 (L) 4.58 - [facility] 5.54 [facility] x10(6)/[facility] LABORATORY Hemoglobin 7.1 (L) 13.7 - [facility] 16.5 g/dL [facility] LABORATORY Hematocrit 20.7 (L) 40.5 - [facility] 48.5 % [facility] LABORATORY MCV 84.1 82.9 - [facility] 93.1 [facility] LABORATORY MCH 28.9 27.5 - [facility] 32.1 pg [facility] LABORATORY MCHC 34.3 32.0 - [facility] 35.7 g/dL [facility] LABORATORY Platelets 97 (L) 145 - 357 [facility] x10(3)/[facility] LABORATORY RDWSD 49.4 (H) 36.0 - [facility] 45.0 [facility] LABORATORY RDWCV 17.8 (H) 11.4 - [facility] 13.8 % [facility] LABORATORY MPV 9.8 7.6 - 12.9 [facility] LABORATORY nRBC % Auto 0.2 % [facility] LABORATORY nRBC Abs Auto 0.020 (H) 0.000 - [facility] 0.000 [facility] x10(3)/[facility] LABORATORY Specimen Anatomical Collection Method Collection Time Receive d Time (Source) Location / / Volume Laterality Blood 02/09/2022 12:55 02/09/2022 1:07 AM EDT AM EDT Resulting Agency Comment Spec In Lab Kaitlyn Rock MD HEMATOLOGY ORDERABLES Performing Organization Address City/State/[place] [address] (ABNORMAL) Basic Metabolic Panel (non-fasting) (02/09/2022 12:55 AM EDT) P athologist Signature Glucose Lvl 128 65 - 199 [facility] mg/dL [facility] LABORATORY Comment: Diabetes: >=200 mg/dL plus symp toms BUN 26 (H) 10 - 20 mg/dL [facility] LABORATORY Creatinine 2.46 (H) 0.80 - 1.50 mg/dL [facility] LABORATORY Sodium 126 (L) 135 - 145 mmol/L [facility] LABORATORY Potassium 4.2 3.5 - 5.0 mmol/L [facility] LABORATORY Comment: Please note: ??Patients with WBC >100,00 0 may have falsely elevated Potassium levels. ??For accurate Potassium quantif ication in these patients send serum separator tube (gold top) for subsequent determinations. ??Contact the Clinical Chemistry Laboratory if there are any qu estions. Chloride 95 (L) 98 - 107 mmol/L [facility]ORATORY CO2 22 22 - 31 mmol/L [facility]OR[facility] Anion Gap 9 5 - 15 mmol/L [facility] LABORATORY Calcium 7.7 (L) 8.5 - 10.5 mg/dL [facility] LABORATORY Estimated GFR 35 (L) >=60 mL/min/1.73 m?? [facility] LABORAT[facility] Comment: This patient's estimated [...] Novak MD CHEMISTRY ORDERABLES Performing Organization Address City/[facility]/ZIP Code Phon e Number [address] (ABNORMAL) Phosphorus (02/09/2022 12:55 AM EDT) P athologist Signature Phosphorus 2.3 (L) 2.5 - 4.5 [facility] mg/dL [facility] LABORATORY Specimen Anatomical Collection Method Collection Time Receive d Time (Source) Location / / Volume Laterality Blood 02/09/2022 12:55 02/09/2022 1:07 AM EDT AM EDT Resulting Agency Comment Spec In Lab Gela Novak MD CHEMISTRY ORDERABLES Performing Organization Address City/[facility]/[place] [address] Magnesium (02/09/2022 12:55 AM EDT) P athologist Signature Magnesium 0.94 0.69 - 1.07 [facility] mmol/L [facility] LABORATORY Specimen Anatomical Collection Method Collection Time Receive d Time (Source) Location / / Volume Laterality Blood 02/09/2022 12:55 02/09/2022 1:07 AM EDT AM EDT Resulting Agency Comment Spec In Lab Gela Novak MD CHEMISTRY ORDERABLES Performing Organization Address City/[facility]/ZIP Code Phon e Number [address] Scan, Peripheral Blood (02/08/2022 6:00 PM EDT) [facility] Method Time Signature Plat Estimate Decreased [facility]ORATORY RBC Morphology Abnormal [facility] Macrocytes 1-5 /HPF [facility] LABORATORY Microcytes 1-5 /HPF [facility] LABORATORY Polychromasia Present >5/HPF [facility] LABORATORY Ovalocytes 1-5 /HPF [facility] LABORAT[facility] Angel Cells 1-5 /HPF [facility] LABORATORY Stippled RBCs Present >1/HPF [facility] LABORATORY Pappenheimer Bdy Present >1/HPF [facility] LABOR[facility] Dohle Bodies Present [facility]ORAT[facility] Giant Platelets Less than 1 /HPF [facility] LABORATORY Specimen Anatomical Collection Method Collection Time Receive d Time (Source) Location / / Volume Laterality Blood 02/08/2022 6:00 PM 6:21 EDT PM EDT Resulting Agency Comment Spec In Lab Rogers Solano APRN HEMATOLOGY ORDERABLES Performing Organization Address City/State/ZIP Code Phon e Number [address] (ABNORMAL) Differential, Automated (02/08/2022 6:00 PM EDT) [facility] Method Time Signature Neutrophils % 64.6 % [facility] LABORATORY Neutr Abs (ANC) 7.81 (H) 1.70 - [facility] 6.10 [facility] x10(3)/[facility] L LABORATORY Lymphocytes % 7.2 % [facility] LABORATORY Lymphocytes Abs 0.9 0.9 - 3.2 [facility] x10(3)/[facility] LABORATORY Monocytes % 14.2 % [facility] LABORATORY Monocyte Abs 1.7 (H) 0.3 - 0.9 [facility] x10(3)/[facility] LABORATORY Eosinophils % 1.3 % [facility] LABORATORY Eosinophils Abs 0.2 0.0 - 0.4 [facility] x10(3)/[facility] LABORATORY Basophils % 0.5 % [facility] LABORATORY Basophils Abs 0.1 0.0 - 0.1 [facility] x10(3)/[facility] LABORATORY Immature Gran % 12.20 % [facility] LABORATORY Comment: Immature granulocytes(IG's)percentage an d absolute count will include metamyelocytes, myelocytes, and promyelo cytes. Blood smears from CBCs yielding IG's will be scanned manually for concor dance. If this scan disagrees with the automated IG or if promyelocytes are not ed, a manual differential will be performed. Gemini Gran Abs 1.48 (H) 0.00 - 0.04 x10(3)/[facility] LABORATORY Specimen Anatomical Collection Method Collection Time Receive d Time (Source) Location / / Volume Laterality Blood 02/08/2022 6:00 PM 6:21 EDT PM EDT Resulting Agency Comment Spec In Lab Rogers Solano APRN HEMATOLOGY ORDERABLES Performing Organization Address City/State/ZIP Code Phon e Number [place] [id number] HOSPITAL LAB[address]ORY Drive (ABNORMAL) Hemogram (02/08/2022 6:00 PM EDT) [facility] gist Method Time Signature WBC 12.1 (H) 4.0 - 9.5 [facility] x10(3)/[facility] LABORATORY RBC 2.57 (L) 4.58 [facility] 5.54 [facility] x10(6)/[facility] LABORATORY Hemoglobin 7.5 (L) 13.7 - [facility] 16.5 g/dL [facility] LABORATORY Hematocrit 21.6 (L) 40.5 - [facility] 48.5 % [facility] LABORATORY MCV 84.0 82.9 - [facility] 93.1 fL [facility] LABORATORY MCH 29.2 27.5 - [facility] 32.1 pg [facility] LABORATORY MCHC 34.7 32.0 - [facility] 35.7 g/dL [facility] LABORATORY Platelets 80 (L) 145 - 357 [facility] x10(3)/[facility] LABORATORY RDWSD 48.9 (H) 36.0 - [facility] 45.0 [facility] LABORATORY RDWCV 17.9 (H) 11.4 - [facility] 13.8 % [facility] LABORATORY MPV 10.1 7.6 - 12.9 [facility] [place] [facility] nRBC % Auto 0.2 % [facility] nRBC Abs Auto 0.020 (H) 0.000 - [facility] 0.000 [facility] x10(3)/[facility] LABORATORY Specimen Anatomical Collection Method Collection Time Receive d Time (Source) Location / / Volume Laterality Blood 02/08/2022 6:00 PM 6:21 EDT PM EDT Resulting Agency Comment Spec In Lab Rogers Solano APRN HEMATOLOGY ORDERABLES Performing Organization Address City/State/[place] [address] (ABNORMAL) Blood Gas Arterial ([facility]) (02/08/2022 6:00 PM EDT) Analysis Performed At Patho logist Time Signature pH Art 7.46 (H) 7.35 - [facility] 7.45 [facility] LABORATORY pCO2 Art 32 (L) 35 - 45 [facility] LABORATORY pO2 Art 89 85 - 104 [facility] LABORATORY HCO3 Art 22.4 20.0 - [facility] 26.0 [facility] mmol/L [facility] LABORATORY BE Art -1.4 -3.0 - 3.0 [facility] mmol/L [facility] LABORATORY Hgb Blood Gas 8.0 (L) 13.7 - [facility] 16.5 g/dL [facility] O2HB Art 95.8 94.0 - [facility] 97.0 % [facility] LABORATORY COHB Art 0.8 % [facility] LABORATORY Comment: Nonsmokers: ??0.5-1.5% COHB Smokers: ??Variable, but usually less th an 10% Toxic: 20 - 30% COHB Lethal: ??Greater than 60% COHB METHB Art 0.0 <=1.5 % [facility] LABORATORY Na Whole Blood 124 (L) 135 - 145 mmol/L [facility] LABORATORY K Whole Blood 4.7 3.5 - 5.0 mmol/L [facility] LABORATORY Comment: Please note: ??Patients with WBC >100,00 0 may have falsely elevated Potassium levels. ??Contact the Clinical Chemistry Laboratory if there are any questions. ICa Whole Blood 1.21 1.15 - 1.33 mmol/L [facility] LABORATORY Comment: Note: ??Total bilirubin higher than 20 m g/dL may lead to falsely low ionized calcium. CL Whole Blood 99 98 - 107 mmol/L [facility] LABORATORY Gluc Whole Bld 84 65 - 199 mg/dL [facility] LABORATORY Comment: Diabetes: >=200 mg/dL plus symp toms. Lactate WB 1.2 0.5 - 2.2 mmol/L [facility] LABORATORY Specimen Anatomical Collection Method Collection Time Receive d Time (Source) Location / / Volume Laterality Blood Arterial Draw / 02/08/2022 6:00 PM 2021 6:18 Unknown EDT PM EDT Resulting Agency Comment Spec In Lab Kaitlyn Rock MD CHEMISTRY ORDERABLES Performing Organization Address City/[facility]/[place] [address] (ABNORMAL) Sodium (02/08/2022 6:00 PM EDT) P athologist Signature Sodium 129 (L) 135 - 145 [facility] mmol/L [facility] LABORATORY Specimen Anatomical Collection Method Collection Time Receive d Time (Source) Location / / Volume Laterality Blood 02/08/2022 6:00 PM 6:21 EDT PM EDT Resulting Agency Comment Spec In Lab Parrish Betancourt MD CHEMISTRY ORDERABLES Performing Organization Address City/State/ZIP Code Phon e Number [address] POCT Glucose (02/08/2022 5:56 PM EDT) P athologist Signature POC Glucose 92 65 - 199 [facility] mg/dL [facility] LABORATORY Comment: Supplemental ranges: <140 mg/dL before meals <180 mg/dL all other times of the day Specimen Anatomical Collection Method Collection Time Receive d Time (Source) Location / / Volume Laterality Blood 02/08/2022 5:56 PM 5:56 EDT PM EDT Parrish Betancourt MD POINT OF CARE TEST ORDERABLE S Performing Organization Address City/[facility]/[place] [address] Anaerobic Culture (02/08/2022 4:13 PM EDT) [employer] Method Time Signature Anaerobic No anaerobic [facility] Culture organisms [facility] LABORATORY Specimen Anatomical Collection Method Collection Time Receive d Time (Source) Location / / Volume Laterality Deep Wound STRUCTURE OF LEFT 02/08/2022 4:13 PM 01/29 4:33 THIGH / Unknown EDT PM EDT Comment: Left thigh #2 Resulting Agency Comment Spec In Lab Jeanette Chatterjee MD MICROBIOLOGY - GENERAL ORDER JT Performing Organization Address City/[facility]/[place] [address] (ABNORMAL) Abscess/Wound Aspirate Culture (02/08/2022 4:13 PM EDT) [employer] Method Time Signature Abscess/Wound Many Pseudomonas aeruginosa JOSH Aspirate Many Serratia marcescens [facility] () [facility] LABORATORY Gram Stain Many Neutrophils seen JOSH Many Gram Negative Rods seen [facility] () [facility] LABORATORY Organism Pseudomonas JOSH aeruginosa (A) [facility] LABORATORY Organism Serratia JOSH marcescens (A) [facility] LABORATORY Organism Gram Negative JOSH Rods (A) [facility] LABORATORY Specimen Anatomical Collection Method Collection [...] Organization Address City/State/[place] [address] Anaerobic Culture (02/08/2022 4:13 PM EDT) [facility] Method Time Signature Anaerobic No anaerobic [facility] Culture organisms [facility] LABORATORY Specimen Anatomical Collection Method Collection Time Receive d Time (Source) Location / / Volume Laterality Deep Wound STRUCTURE OF LEFT 02/08/2022 4:13 PM 01/29 4:32 THIGH / Unknown EDT PM EDT Comment: Left thigh #1 Resulting Agency Comment Spec In Lab Jeanette Chatterjee MD MICROBIOLOGY - GENERAL ORDER JT Performing Organization Address City/State/[place] [address] (ABNORMAL) Abscess/Wound Aspirate Culture (02/08/2022 4:13 PM EDT) Component Value Ref Test Analysis Performed At [facility] gist Range Method Time Signature Abscess/Woun Many Pseudomonas aeruginosa JOSH d Aspirate Many Serratia marcescens [facility] Culture Susceptibilities previously reported [facility] LABORATORY Gram Stain Many Neutrophils seen JOSH Moderate Gram Negative Rods seen [facility] LABORATORY Organism Pseudomonas JOSH aeruginosa (A) [facility] LABORATORY Organism Serratia marcescens JOSH (A) [facility] LABORATORY Specimen Anatomical Collection Method Collection Time Receive d Time (Source) Location / / Volume Laterality Deep Wound STRUCTURE OF LEFT 02/08/2022 4:13 PM 01/29 4:32 THIGH / Unknown EDT PM EDT Comment: Left thigh #1 Resulting Agency Comment Spec In Lab Jeanette Chatterjee MD MICROBIOLOGY - GENERAL ORDER JT Performing Organization Address City/[facility]/[place] [address] POCT Glucose (02/08/2022 12:09 PM EDT) athologist Signature POC Glucose 126 65 - [address] [facility] mg/dL [facility] LABORATORY Comment: Supplemental ranges: <140 mg/dL before meals <180 mg/dL all other times of the day Specimen Anatomical Collection Method Collection Time Receive d Time (Source) Location / / Volume Laterality Blood 02/08/2022 12:09 02/08/2022 PM EDT 12:09 PM EDT Parrish Betancourt MD POINT OF CARE TEST ORDERABLE S Performing Organization Address City/[facility]/[place] [address] POCT Glucose (02/08/2022 12:09 PM EDT) athologist Signature POC Glucose 100 65 - [address] [facility] mg/dL [facility] LABORATORY Comment: Supplemental ranges: <140 mg/dL before meals <180 mg/dL all other times of the day Specimen Anatomical Collection Method Collection Time Receive d Time (Source) Location / / Volume Laterality Blood 02/08/2022 12:09 02/08/2022 PM EDT 12:09 PM EDT Parrish Betancourt MD POINT OF CARE TEST ORDERABLE S Performing Organization Address City/State/[place] [address] (ABNORMAL) Blood Gas Arterial ([facility]) (02/08/2022 12:00 PM EDT) Analysis Performed At Patho logist Time Signature pH Art 7.47 (H) 7.35 - [facility] 7.45 [facility] LABORATORY pCO2 Art 32 (L) 35 - 45 [facility] mmHg [facility] LABORATORY pO2 Art 129 (H) 85 - 104 [facility] LABORATORY HCO3 Art 22.9 20.0 - [facility] 26.0 [facility] mmol/L [facility] LABORATORY BE Art -0.7 -3.0 - 3.0 [facility] mmol/L [facility] LABORATORY Hgb Blood Gas 8.1 (L) 13.7 - [facility] 16.5 g/dL [facility] LABORATORY O2HB Art 97.5 (H) 94.0 - [facility] 97.0 % [facility] LABORATORY COHB Art 0.9 % [facility] LABORATORY Comment: Nonsmokers: ??0.5-1.5% COHB Smokers: ??Variable, but usually less th an 10% Toxic: 20 - 30% COHB Lethal: ??Greater than 60% COHB METHB Art 0.0 <=1.5 % [facility] LABORATORY Na Whole Blood 123 (L) 135 - 145 mmol/L [facility] LABORATORY K Whole Blood 4.7 3.5 - 5.0 mmol/L [facility] Comment: Please note: ??Patients with WBC >100,00 0 may have falsely elevated Potassium levels. ??Contact the Clinical Chemistry Laboratory if there are any questions. ICa Whole Blood 1.26 1.15 - 1.33 mmol/L [facility] Comment: Note: ??Total bilirubin higher than 20 m g/dL may lead to falsely low ionized calcium. CL Whole Blood 98 98 - 107 mmol/L [facility] Gluc Whole Bld 92 65 - 199 mg/dL [facility] Comment: Diabetes: >=200 mg/dL plus symp toms. Lactate WB 0.9 0.5 - 2.2 mmol/L [facility] Specimen Anatomical Collection Method Collection Time Receive d Time (Source) Location / / Volume Laterality Blood Arterial Draw / 02/08/2022 12:00 02/09/20 22 Unknown PM EDT 12:21 PM EDT Resulting Agency Comment Spec In Lab Angelina Reynoso MD CHEMISTRY ORDERABLES Performing Organization Address City/[facility] Phon e Number [address] (ABNORMAL) Sodium (02/08/2022 12:00 PM EDT) P athologist Signature Sodium 127 (L) 135 - 145 [facility] mmol/L [facility] Specimen Anatomical Collection Method Collection Time Receive d Time (Source) Location / / Volume Laterality Blood 02/08/2022 12:00 02/08/2022 PM EDT 12:23 PM EDT Resulting Agency Comment Spec In Lab Parrish Betancourt MD CHEMISTRY ORDERABLES Performing Organization Address City/[facility] [place] [place] [address] (ABNORMAL) Calcium Ionized Whole Blood, HONORIO (02/08/2022 11:00 AM EDT) Analysis Performed At Patho logist Time Signature pH Honorio 7.46 (H) 7.32 - [facility] 7.42 [facility] ICa Whole 1.26 1.15 - [facility] Blood 1.33 [facility] mmol/[facility] Comment: Note: ??Total bilirubin higher than 20 m g/dL may lead to falsely low ionized calcium. Specimen Anatomical Collection Method Collection Time Receive d Time (Source) Location / / Volume Laterality Blood ARTERIAL LINE / 02/08/2022 11:00 02/09/20 22 Unknown AM EDT 11:09 AM EDT Resulting Agency Comment Spec In Lab Parrish Betancourt MD CHEMISTRY ORDERABLES Performing Organization Address City/[facility]/[place] [address] POCT Glucose (02/08/2022 9:56 AM EDT) athologist Signature POC Glucose 96 65 - 199 [facility] mg/dL [facility] Comment: Supplemental ranges: <140 mg/dL before meals <180 mg/dL all other times of the day Specimen Anatomical Collection Method Collection Time Receive d Time (Source) Location / / Volume Laterality Blood 02/08/2022 9:56 AM 9:56 EDT AM EDT Parrish Betancourt MD POINT OF CARE TEST ORDERABLE S Performing Organization Address City/State/[place] [address] (ABNORMAL) BLOOD GAS 2 ARTERIAL (02/08/2022 8:15 AM EDT) athologist Signature pH Art 7.44 7.35 - [facility] 7.45 [facility] pCO2 Art 36 35 - 45 [facility] LABORATORY pO2 Art 108 (H) 85 - 104 [facility] LABORATORY HCO3 Art 23.8 20.0 - [facility] 26.0 [facility] mmol/L [facility] BE Art -0.3 -3.0 - 3.0 [facility] mmol/L [facility] Hgb Blood Gas 7.8 (L) 13.7 - [facility] 16.5 g/dL [facility] O2HB Art 95.7 94.0 - [facility] 97.0 % [facility] COHB Art 0.1 % [facility] Comment: Nonsmokers: 0.5-1.5% COHB Smokers: Variable, but usually less than 10% Toxic: 20-30% COHB Lethal: Greater than 60% COHB METHB Art 1.3 <=1.5 % [facility] Na Whole Blood 122 (L) 135 - 145 mmol/L [facility] K Whole Blood 4.6 3.5 - 5.0 mmol/L [facility] Comment: Please note: Patients with WBC >100,000 may have falsely elevated Potassium levels. Contact the Clinical Chemistry L aboratory if there are any questions. ICa Whole Blood 1.27 1.15 - 1.33 mmol/L [facility] Comment: Note: ??Total bilirubin higher than 20 m g/dL may lead to falsely low ionized calcium. CL Whole Blood 98 98 - 107 mmol/L [facility] Gluc Whole Bld 92 65 - 199 mg/dL [facility] Comment: Diabetes: >=200 mg/dL plus symp toms. Lactate WB 0.9 0.5 - 2.2 mmol/L [facility] FIO2 Art 21 % [facility] PF Ratio Art 514 [facility] Specimen Anatomical Collection Method Collection Time Receive d Time (Source) Location / / Volume Laterality Blood 02/08/2022 8:15 AM 2 8:15 EDT AM EDT Jayme Armstrong MD CHEMISTRY ORDERABLES Performing Organization Address City/State/ZIP Code Phon e Number [address] POCT Glucose (02/08/2022 7:42 AM EDT) athologist Signature POC Glucose 98 65 - 199 [facility] Comment: Supplemental ranges: <140 mg/dL before meals <180 mg/dL all other times of the day Specimen Anatomical Collection Method Collection Time Receive d Time (Source) Location / / Volume Laterality Blood 02/08/2022 7:42 AM 2 7:42 EDT AM EDT Jayme Armstrong MD POINT OF CARE TEST ORDERABLE S Performing Organization Address City/State/[place] [address] Phosphorus (02/08/2022 5:57 AM EDT) P athologist Signature Phosphorus 3.9 2.5 - 4.5 [facility] mg/dL [facility] Specimen Anatomical Collection Method Collection Time Receive d Time (Source) Location / / Volume Laterality Blood 02/08/2022 5:57 AM 2 5:58 EDT AM EDT Resulting Agency Comment Spec In Lab Gela Novak MD CHEMISTRY ORDERABLES Performing Organization Address City/State/ZIP Code Phon e Number [address] Magnesium (02/08/2022 5:57 AM EDT) athologist Signature Magnesium 0.91 0.69 - 1.07 [facility] mmol/L [facility] Specimen Anatomical Collection Method Collection Time Receive d Time (Source) Location / / Volume Laterality Blood 02/08/2022 5:57 AM 2 5:58 EDT AM EDT Resulting Agency Comment Spec In Lab Gela Novak MD CHEMISTRY ORDERABLES Performing Organization Address City/[facility]/[place] [address] (ABNORMAL) Basic Metabolic Panel (non-fasting) (02/08/2022 5:57 AM EDT) athologist Signature Glucose Lvl 92 65 - 199 [facility] mg/dL [facility] Comment: Diabetes: >=200 mg/dL plus symp toms BUN 29 (H) 10 - 20 mg/dL [facility] Creatinine 2.94 (H) 0.80 - 1.50 mg/dL [facility] Comment: result rechecked-red Sodium 126 (L) 135 - 145 mmol/L [facility] Potassium 4.9 3.5 - 5.0 mmol/L [facility] Comment: Please note: ??Patients with WBC >100,00 0 may have falsely elevated Potassium levels. ??For accurate Potassium quantif ication in these patients send serum separator tube (gold top) for subsequent determinations. ??Contact the Clinical Chemistry Laboratory if there are any qu estions. Chloride 97 (L) 98 - 107 mmol/L [facility] CO2 22 22 - 31 mmol/L [facility] Anion Gap 7 5 - 15 mmol/L [facility] Calcium 8.5 8.5 - 10.5 mg/dL [facility] Comment: result rechecked-red Estimated GFR 28 (L) >=60 mL/min/1.73 m?? [facility] Comment: This patient's estimated [...] Organization Address City/State/[place] [address] (ABNORMAL) BLOOD GAS 2 ARTERIAL (02/08/2022 5:54 AM EDT) Analysis Performed At Patho logist Time Signature pH Art 7.47 (H) 7.35 - [facility] 7.45 [facility] pCO2 Art 30 (L) 35 - 45 [facility] LABORATORY pO2 Art 87 85 - 104 [facility] LABORATORY HCO3 Art 21.5 20.0 - [facility] 26.0 [facility] mmol/L [facility] BE Art -2.1 -3.0 - 3.0 [facility] mmol/L [facility] Hgb Blood Gas 7.7 (L) 13.7 - [facility] 16.5 g/dL [facility] O2HB Art 94.2 94.0 - [facility] 97.0 % [facility] COHB Art 0.3 % [facility] Comment: Nonsmokers: 0.5-1.5% COHB Smokers: Variable, but usually less than 10% Toxic: 20-30% COHB Lethal: Greater than 60% COHB METHB Art 1.0 <=1.5 % [facility] Na Whole Blood 122 (L) 135 - 145 mmol/L [facility] K Whole Blood 4.8 3.5 - 5.0 mmol/L [facility] Comment: Please note: Patients with WBC >100,000 may have falsely elevated Potassium levels. Contact the Clinical Chemistry L aboratory if there are any questions. ICa Whole Blood 1.28 1.15 - 1.33 mmol/L [facility] Comment: Note: ??Total bilirubin higher than 20 m g/dL may lead to falsely low ionized calcium. CL Whole Blood 98 98 - 107 mmol/L [facility] Gluc Whole Bld 87 65 - 199 mg/dL [facility] Comment: Diabetes: >=200 mg/dL plus symp toms. Lactate WB 1.1 0.5 - 2.2 mmol/L [facility] FIO2 Art 21 % [facility] PF Ratio Art 414 [facility] Temp Art 37.2 Celsius [facility] Specimen Anatomical Collection Method Collection Time Receive d Time (Source) Location / / Volume Laterality Blood 02/08/2022 5:54 AM 5:54 EDT AM EDT Jayme Arsmtrong MD CHEMISTRY ORDERABLES Performing Organization Address City/State/[place] [address] Scan, Peripheral Blood (02/08/2022 1:00 AM EDT) [facility] gist Method Time Signature Plat Estimate Decreased [facility] RBC Morphology Abnormal [facility] Polychromasia Present >5/HPF [facility] Ovalocytes 1-5 /HPF [facility] Clearwater Cells 1-5 /HPF [facility] Toxic Granulation Present [facility] Specimen Anatomical Collection Method Collection Time Receive d Time (Source) Location / / Volume Laterality Blood 02/08/2022 1:00 AM 2 1:20 EDT AM EDT Resulting Agency Comment Spec In Lab Danielle Ramirez MD HEMATOLOGY ORDERABLES Performing Organization Address City/State/[place] [address] (ABNORMAL) Differential, Automated (02/08/2022 1:00 AM EDT) [facility] Method Time Signature Neutrophils % 67.2 % [facility] Neutr Abs (ANC) 12.53 (H) 1.70 - [facility] 6.10 [facility] x10(3)/[facility] LABORATORY Lymphocytes % 8.1 % [facility] Lymphocytes Abs 1.5 0.9 - 3.2 [facility] x10(3)/[facility] LABORATORY Monocytes % 13.3 % [facility] Monocyte Abs 2.5 (H) 0.3 - 0.9 [facility] x10(3)/[facility] LABORATORY Eosinophils % 1.2 % [facility] Eosinophils Abs 0.2 0.0 - 0.4 [facility] x10(3)/[facility] LABORATORY Basophils % 0.5 % [facility] Basophils Abs 0.1 0.0 - 0.1 [facility] x10(3)/[facility] LABORATORY Immature Gran % 9.70 % [facility] Comment: Immature granulocytes(IG's)percentage an d absolute count will include metamyelocytes, myelocytes, and promyelo cytes. Blood smears from CBCs yielding IG's will be scanned manually for concor dance. If this scan disagrees with the automated IG or if promyelocytes are not ed, a manual differential will be performed. Gemini Gran Abs 1.81 (H) 0.00 - 0.04 x10(3)/[facility] LABORATORY Specimen Anatomical Collection Method Collection Time Receive d Time (Source) Location / / Volume Laterality Blood 02/08/2022 1:00 AM 2 1:20 EDT AM EDT Resulting Agency Comment Spec In Lab Danielle Ramirez MD HEMATOLOGY ORDERABLES Performing Organization Address City/State/[place] [address] (ABNORMAL) Hemogram (02/08/2022 1:00 AM EDT) [facility] gist Method Time Signature WBC 18.6 (H) 4.0 - 9.5 [facility] LABORATORY RBC 2.51 (L) 4.58 - [facility] 5.54 [facility] x10(6)/[facility] LABORATORY Hemoglobin 7.3 (L) 13.7 - [facility] 16.5 g/dL [facility] Hematocrit 20.7 (L) 40.5 - [facility] 48.5 % [facility] MCV 82.5 (L) 82.9 [facility] 93.1 [facility] LABORATORY MCH 29.1 27.5 - [facility] 32.1 pg [facility] MCHC 35.3 32.0 - [facility] 35.7 g/dL [facility] Platelets 97 (L) 145 - 357 [facility] x10(3)/[facility] LABORATORY RDWSD 42.7 36.0 - [facility] 45.0 [facility] LABORATORY RDWCV 15.6 (H) 11.4 - [facility] 13.8 % [facility] MPV 9.7 7.6 - 12.9 [facility] LABORATORY nRBC % Auto 0.5 % [facility] nRBC Abs Auto 0.100 (H) 0.000 - [facility] 0.000 [facility] x10(3)/[facility] LABORATORY Specimen Anatomical Collection Method Collection Time Receive d Time (Source) Location / / Volume Laterality Blood 02/08/2022 1:00 AM 2 1:20 EDT AM EDT Resulting Agency Comment Spec In Lab Danielle Ramirez MD HEMATOLOGY ORDERABLES Performing Organization Address City/State/[place] [address] (ABNORMAL) Fibrinogen (02/08/2022 1:00 AM EDT) athologist Signature Fibrinogen 423 (H) 200 - 393 [facility] mg/dL [facility] Comment: A fibrinogen level >100 mg/dL is adequat e for hemostasis in most patients without underlying bleeding disorders. Specimen Anatomical Collection Method Collection Time Receive d Time (Source) Location / / Volume Laterality Blood 02/08/2022 1:00 AM 2 1:20 EDT AM EDT Resulting Agency Comment Spec In Lab Jayme Armstrong MD HEMATOLOGY ORDERABLES Performing Organization Address City/[facility]/ZIP Code Phon e Number [address] APTT (02/08/2022 1:00 AM EDT) athologist Signature PTT 25 25 - 37 sec [facility] Comment: The PTT is [...] Armstrong MD HEMATOLOGY ORDERABLES Performing Organization Address City/[facility]/[place] [address] Prothrombin Time (02/08/2022 1:00 AM EDT) P athologist Signature PT 12.2 9.4 - 12.5 [facility] LABORATORY INR 1.1 [facility] Comment: An INR <2.0 [...] Organization Address City/State/[place] [address] (ABNORMAL) Blood Gas Arterial ([facility]) (02/08/2022 12:01 AM EDT) Analysis Performed At Patho logist Time Signature pH Art 7.47 (H) 7.35 - [facility] 7.45 [facility] pCO2 Art 32 (L) 35 - 45 [facility] mmHg [facility] pO2 Art 87 85 - 104 [facility] LABORATORY HCO3 Art 22.6 20.0 - [facility] 26.0 [facility] mmol/L [facility] BE Art -1.1 -3.0 - 3.0 [facility] mmol/L [facility] Hgb Blood Gas 7.7 (L) 13.7 - [facility] 16.5 g/dL [facility] O2HB Art 95.4 94.0 - [facility] 97.0 % [facility] COHB Art 1.0 % [facility] Comment: Nonsmokers: ??0.5-1.5% COHB Smokers: ??Variable, but usually less th an 10% Toxic: 20 - 30% COHB Lethal: ??Greater than 60% COHB METHB Art 0.1 <=1.5 % [facility] Na Whole Blood 122 (L) 135 - 145 mmol/L [facility] K Whole Blood 4.6 3.5 - 5.0 mmol/L [facility] Comment: Please note: ??Patients with WBC >100,00 0 may have falsely elevated Potassium levels. ??Contact the Clinical Chemistry Laboratory if there are any questions. ICa Whole Blood 1.24 1.15 - 1.33 mmol/L [facility] Comment: Note: ??Total bilirubin higher than 20 m g/dL may lead to falsely low ionized calcium. CL Whole Blood 99 98 - 107 mmol/L [facility] Gluc Whole Bld 89 65 - 199 mg/dL [facility] Comment: Diabetes: >=200 mg/dL plus symp toms. Lactate WB 1.1 0.5 - 2.2 mmol/L [facility] Specimen Anatomical Collection Method Collection Time Receive d Time (Source) Location / / Volume Laterality Blood Arterial Draw / 02/08/2022 12:01 02/09/20 22 Unknown AM EDT 12:16 AM EDT Resulting Agency Comment Spec In Lab Angelina Reynoso MD CHEMISTRY ORDERABLES Performing Organization Address City/[facility]/[place] [address] (ABNORMAL) Sodium (02/08/2022 12:01 AM EDT) P athologist Signature Sodium 125 (L) 135 - 145 [facility] mmol/L [facility] Specimen Anatomical Collection Method Collection Time Receive d Time (Source) Location / / Volume Laterality Blood 02/08/2022 12:01 02/08/2022 AM EDT 12:15 AM EDT Resulting Agency Comment Spec In Lab Parrish Betancourt MD CHEMISTRY ORDERABLES Performing Organization Address City/[facility]/[place] [address] Prepare RBC (02/07/2022 7:40 PM EDT) P athologist Signature Dispensed? Yes [facility] Specimen Anatomical Collection Method Collection Time Receive d Time (Source) Location / / Volume Laterality Blood 02/07/2022 7:40 PM 7:39 EDT PM EDT Jayme Armstrong MD BLOOD BANK ORDERABLES Performing Organization Address City/[facility]/[place] [address] (ABNORMAL) BLOOD GAS 2 ARTERIAL (02/07/2022 6:08 PM EDT) Analysis Performed At Patho logist Time Signature pH Art 7.50 (H) 7.35 - [facility] 7.45 [facility] pCO2 Art 27 (L) 35 - 45 [facility] LABORATORY pO2 Art 81 (L) 85 - 104 [facility] LABORATORY HCO3 Art 20.8 20.0 - [facility] 26.0 [facility] mmol/L [facility] BE Art -2.4 -3.0 - 3.0 [facility] mmol/L [facility] Hgb Blood Gas 8.5 (L) 13.7 - [facility] 16.5 g/dL [facility] O2HB Art 93.9 (L) 94.0 - [facility] 97.0 % [facility] COHB Art 0.3 % [facility] Comment: Nonsmokers: 0.5-1.5% COHB Smokers: Variable, but usually less than 10% Toxic: 20-30% COHB Lethal: Greater than 60% COHB METHB Art 1.0 <=1.5 % [facility] Na Whole Blood 119 (Critical) 135 - 145 mmol/L [facility] Comment: Noted by supervisor instrument maintenance. K Whole Blood 5.1 (H) 3.5 - 5.0 mmol/L [facility] Comment: Please note: Patients with WBC >100,000 may have falsely elevated Potassium levels. Contact the Clinical Chemistry L aboratory if there are any questions. ICa Whole Blood 1.18 1.15 - 1.33 mmol/L [facility] Comment: Note: ??Total bilirubin higher than 20 m g/dL may lead to falsely low ionized calcium. CL Whole Blood 96 (L) 98 - 107 mmol/L [facility] Gluc Whole Bld 100 65 - 199 mg/dL [facility] Comment: Diabetes: >=200 mg/dL plus symp toms. Lactate WB 1.4 0.5 - 2.2 mmol/L [facility] Flow Art 21.0 LPM [facility] Specimen Anatomical Collection Method Collection Time Receive d Time (Source) Location / / Volume Laterality Blood 02/07/2022 6:08 PM 6:08 EDT PM EDT Jayme Armstrong MD CHEMISTRY ORDERABLES Performing Organization Address City/State/ZIP Code Phon e Number [address] Scan, Peripheral Blood (02/07/2022 6:05 PM EDT) [facility] [employer] Method Time Signature Plat Estimate Decreased [facility] RBC Morphology Abnormal [facility] Polychromasia Present >5/HPF [facility] Clearwater Cells 1-5 /HPF [facility] Stippled RBCs Present >1/HPF [facility] Specimen Anatomical Collection Method Collection Time Receive d Time (Source) Location / / Volume Laterality Blood 02/07/2022 6:05 PM 6:10 EDT PM EDT Resulting Agency Comment Spec In Lab Rogers Solano APRN HEMATOLOGY ORDERABLES Performing Organization Address City/[facility]/[place] [address] (ABNORMAL) Differential, Automated (02/07/2022 6:05 PM EDT) [facility] [employer] Method Time Signature Neutrophils % 67.7 % [facility] Neutr Abs (ANC) 12.21 (H) 1.70 - [facility] 6.10 [facility] x10(3)/[facility] LABORATORY Lymphocytes % 7.1 % [facility] Lymphocytes Abs 1.3 0.9 - 3.2 [facility] x10(3)/[facility] LABORATORY Monocytes % 14.1 % [facility] Monocyte Abs 2.6 (H) 0.3 - 0.9 [facility] x10(3)/[facility] LABORATORY Eosinophils % 0.8 % [facility] Eosinophils Abs 0.1 0.0 - 0.4 [facility] x10(3)/[facility] LABORATORY Basophils % 0.4 % [facility] Basophils Abs 0.1 0.0 - 0.1 [facility] x10(3)/[facility] LABORATORY Immature Gran % 9.90 % [facility] Comment: Immature granulocytes(IG's)percentage an d absolute count will include metamyelocytes, myelocytes, and promyelo cytes. Blood smears from CBCs yielding IG's will be scanned manually for concor dance. If this scan disagrees with the automated IG or if promyelocytes are not ed, a manual differential will be performed. Gemini Gran Abs 1.79 (H) 0.00 - 0.04 x10(3)/[facility] LABORATORY Specimen Anatomical Collection Method Collection Time Receive d Time (Source) Location / / Volume Laterality Blood 02/07/2022 6:05 PM 6:10 EDT PM EDT Resulting Agency Comment Spec In Lab Rogers Solano APRN HEMATOLOGY ORDERABLES Performing Organization Address City/State/[place] [address] (ABNORMAL) Hemogram (02/07/2022 6:05 PM EDT) [facility] gist Method Time Signature WBC 18.0 (H) 4.0 - 9.5 [facility] x10(3)/[facility] LABORATORY RBC 2.31 (L) 4.58 - [facility] 5[facility]54 [facility] x10(6)/[facility] LABORATORY Hemoglobin 6.8 (L) 13.7 [facility] 16.[facility] g/dL [facility] LABORATORY Hematocrit 19.3 (L) 40.5 - [facility] M[facility] 48.5 % [facility] LABORATORY MCV 83.5 82.9 - [facility] 93.1 [facility] LABORATORY MCH 29.4 27.5 - [facility] M[facility] 32.1 pg [facility] LABORATORY MCHC 35.2 32.0 - [facility] 35.7 g/dL [facility] LABORATORY Platelets 85 (L) 145 - 357 [facility] x10(3)/[facility] LABORATORY RDWSD 42.5 36.0 [facility] 45.0 [facility] LABORATORY RDWCV 14.7 (H) 11.4 - [facility] 13.8 % [facility] LABORATORY MPV 9.9 7.6 - 12.9 [facility] LABORATORY nRBC % Auto 0.8 % [facility] LABORATORY nRBC Abs Auto 0.150 (H) 0.000 - [facility] 0.000 [facility] x10(3)/[facility] LABORATORY Specimen Anatomical Collection Method Collection Time Receive d Time (Source) Location / / Volume Laterality Blood 02/07/2022 6:05 PM 2 6:10 EDT PM EDT Resulting Agency Comment Spec In Lab Rogers Solano APRN HEMATOLOGY ORDERABLES Performing Organization Address City/[facility]/ZIP Code Phon e Number [address] (ABNORMAL) Sodium (02/07/2022 6:05 PM EDT) P athologist Signature Sodium 125 (L) 135 - 145 [facility] mmol/L [facility] LABORATORY Specimen Anatomical Collection Method Collection Time Receive d Time (Source) Location / / Volume Laterality Blood 02/07/2022 6:05 PM 2 6:10 EDT PM EDT Resulting Agency Comment Spec In Lab Parrish Betancourt MD CHEMISTRY ORDERABLES Performing Organization Address City/[facility]/[place] [address] (ABNORMAL) Calcium Ionized Whole Blood, HONORIO (02/07/2022 4:30 PM EDT) Analysis Performed At Patho logist Time Signature pH Honorio 7.43 (H) 7.32 - [facility] 7.42 [facility] LABORATORY ICa Whole 1.15 1.15 - [facility] Blood 1.33 [facility] mmol/L [facility] LABORATORY Comment: Note: ??Total bilirubin higher than 20 m g/dL may lead to falsely low ionized calcium. Specimen Anatomical Collection Method Collection Time Receive d Time (Source) Location / / Volume Laterality Blood ARTERIAL LINE / 02/07/2022 4:30 PM 2021 4:38 Unknown EDT PM EDT Resulting Agency Comment Spec In Lab Parrish Betancourt MD CHEMISTRY ORDERABLES Performing Organization Address City/[facility]/ZIP Code Phon e Number [address] Transfuse RBC (02/07/2022 4:20 PM EDT) Rogers Solano KATERYNA NURSING TREATMENT ORDERABLES - BLOOD ADMIN Transfuse RBC (02/07/2022 4:20 PM EDT) Rogers Solano KATERYNA NURSING TREATMENT ORDERABLES - BLOOD ADMIN Prepare RBC (02/07/2022 1:30 PM EDT) P athologist Signature Dispensed? Yes [facility] LABORATORY Specimen Anatomical Collection Method Collection Time Receive d Time (Source) Location / / Volume Laterality Blood 02/07/2022 1:30 PM 1:29 EDT PM EDT Rogers Solano KATERYNA BLOOD BANK ORDERABLES Performing Organization Address City/State/[place] [address] XR Chest One View [...] who have questions please contact the health memory care program director that requested your imaging first. ? Narrative [...] ho have questions please contact the health memory care program director that requested your imaging first. Electronically signed by: Boubacar kim MD, [facility] ([phone]), at 02/07/2022 1:37 PM Jayme Armstrong MD IMG DX ORDERABLES (ABNORMAL) BLOOD GAS 2 ARTERIAL (02/07/2022 1:04 PM EDT) Analysis Performed At Patho logist Time Signature pH Art 7.51 (H) 7.35 - [facility] 7.45 [facility] LABORATORY pCO2 Art 28 (L) 35 - 45 [facility] LABORATORY pO2 Art 78 (L) 85 - 104 [facility] LABORATORY HCO3 Art 22.0 20.0 - [facility] 26.0 [facility] mmol/L [facility] LABORATORY BE Art -1.0 -3.0 - 3.0 [facility] mmol/L [facility] LABORATORY Hgb Blood Gas 7.4 (L) 13.7 - [facility] 16.5 g/dL [facility] LABORATORY O2HB Art 93.3 (L) 94.0 - [facility] 97.0 % [facility] LABORATORY COHB Art 0.3 % [facility] LABORATORY Comment: Nonsmokers: 0.5-1.5% COHB Smokers: Variable, but usually less than 10% Toxic: 20-30% COHB Lethal: Greater than 60% COHB METHB Art 1.2 <=1.5 % [facility] LABORATORY Na Whole Blood 118 (Critical) 135 - 145 mmol/L [facility] LABORATORY Comment: Noted by supervisor instrument maintenance. K Whole Blood 5.8 (H) 3.5 - 5.0 mmol/L [facility] LABORATORY Comment: Please note: Patients with WBC >100,000 may have falsely elevated Potassium levels. Contact the Clinical Chemistry L aboratory if there are any questions. ICa Whole Blood 1.08 (L) 1.15 - 1.33 mmol/L [facility] LABORATORY Comment: Note: ??Total bilirubin higher than 20 m g/dL may lead to falsely low ionized calcium. CL Whole Blood 94 (L) 98 - 107 mmol/L [facility] LABORATORY Gluc Whole Bld 104 65 - 199 mg/dL [facility] LABORATORY Comment: Diabetes: >=200 mg/dL plus symp toms. Lactate WB 1.2 0.5 - 2.2 mmol/L [facility] LABORATORY FIO2 Art 21 % [facility] LABORATORY PF Ratio Art 371 [facility] LABORATORY Specimen Anatomical Collection Method Collection Time Receive d Time (Source) Location / / Volume Laterality Blood 02/07/2022 1:04 PM 1:04 EDT PM EDT Jayme Armstrong MD CHEMISTRY ORDERABLES Performing Organization Address City/State/[place] [address] (ABNORMAL) Phosphorus (02/07/2022 1:00 PM EDT) athologist Signature Phosphorus 5.0 (H) 2.5 - 4.5 [facility] mg/dL [facility] LABORATORY Specimen Anatomical Collection Method Collection Time Receive d Time (Source) Location / / Volume Laterality Blood Venous Draw / 02/07/2022 1:00 PM 02/08/20 22 1:15 Unknown EDT PM EDT Resulting Agency Comment Spec In Lab Angelina Reynoso MD CHEMISTRY ORDERABLES Performing Organization Address City/[facility]/ZIP Code Phon e Number [address] Magnesium (02/07/2022 1:00 PM EDT) athologist Signature Magnesium 0.87 0.69 - 1.07 [facility]/L [facility] LABORATORY Specimen Anatomical Collection Method Collection Time Receive d Time (Source) Location / / Volume Laterality Blood Venous Draw / 02/07/2022 1:00 PM 02/08/20 22 1:15 Unknown EDT PM EDT Resulting Agency Comment Spec In Lab Angelina Reynoso MD CHEMISTRY ORDERABLES Performing Organization Address City/[facility]/ZIP Code Phon e Number [address] (ABNORMAL) Differential, Automated (02/07/2022 1:00 PM EDT) [facility] gist Method Time Signature Neutrophils % 67.1 % [facility] LABORATORY Neutr Abs (ANC) 13.59 (H) 1.70 - [facility] 6.10 [facility] x10(3)/[facility] L LABORATORY Lymphocytes % 6.8 % [facility] LABORATORY Lymphocytes Abs 1.4 0.9 - 3.2 [facility] x10(3)/[facility] LABORATORY Monocytes % 13.2 % [facility] LABORATORY Monocyte Abs 2.7 (H) 0.3 - 0.9 [facility] x10(3)/[facility] LABORATORY Eosinophils % 0.5 % [facility] LABORATORY Eosinophils Abs 0.1 0.0 - 0.4 [facility] x10(3)/[facility] LABORATORY Basophils % 0.5 % [facility] LABORATORY Basophils Abs 0.1 0.0 - 0.1 [facility] x10(3)/[facility] LABORATORY Immature Gran % 11.90 % [facility] LABORATORY Comment: Immature granulocytes(IG's)percentage an d absolute count will include metamyelocytes, myelocytes, and promyelo cytes. Blood smears from CBCs yielding IG's will be scanned manually for concor dannoe. If this scan disagrees with the automated IG or if promyelocytes are not ed, a manual differential will be performed. Gemini Gran Abs 2.40 (H) 0.00 - 0.04 x10(3)/[facility] LABORATORY Specimen Anatomical Collection Method Collection Time Receive d Time (Source) Location / / Volume Laterality Blood 02/07/2022 1:00 PM 2 1:09 EDT PM EDT Resulting Agency Comment Spec In Lab Batsheva Hill MD HEMATOLOGY ORDERABLES Performing Organization Address City/State/[place] [address] (ABNORMAL) Hemogram (02/07/2022 1:00 PM EDT) [facility] gist Method Time Signature WBC 20.2 (H) 4.0 - 9.5 [facility] x10(3)/[facility] LABORATORY RBC 2.25 (L) 4.58 - [facility] 5.54 [facility] x10(6)/[facility] LABORATORY Hemoglobin 6.6 (L) 13.7 [facility] 16.5 g/dL [facility] LABORATORY Hematocrit 18.6 (L) 40.5 - [facility] 48.5 % [facility] LABORATORY MCV 82.7 (L) 82.9 - [facility] 93.1 [facility] LABORATORY MCH 29.3 27.5 - [facility] 32.1 [facility] LABORATORY MCHC 35.5 32.0 - [facility] g/dL [facility] LABORATORY Platelets 112 (L) 145 - 357 [facility] x10(3)/[facility] LABORATORY RDWSD 42.7 36.0 - [facility] 45.0 [facility] LABORATORY RDWCV 14.9 (H) 11.4 - [facility] 13.8 % [facility] LABORATORY MPV 9.8 7.6 - 12.9 [facility] LABORATORY nRBC % Auto 0.9 % [facility] LABORATORY nRBC Abs Auto 0.190 (H) 0.000 - [facility] 0.000 [facility] x10(3)/[facility] LABORATORY Specimen Anatomical Collection Method Collection Time Receive d Time (Source) Location / / Volume Laterality Blood 02/07/2022 1:00 PM 2 1:09 EDT PM EDT Resulting Agency Comment Spec In Lab Batsheva Hill MD HEMATOLOGY ORDERABLES Performing Organization Address City/State/[place] [address] (ABNORMAL) Basic Metabolic Panel (non-fasting) (02/07/2022 1:00 PM EDT) athologist Signature Glucose Lvl 105 65 - 199 [facility] mg/dL [facility] LABORATORY Comment: Diabetes: >=200 mg/dL plus symp toms BUN 41 (H) 10 - 20 mg/dL [facility] LABORATORY Creatinine 3.92 (H) 0.80 - 1.50 mg/dL [facility] LABORATORY Sodium 123 (L) 135 - 145 mmol/L [facility] LABORATORY Potassium 6.0 (H) 3.5 - 5.0 mmol/L [facility] LABORATORY Comment: Please note: ??Patients with WBC >100,00 0 may have falsely elevated Potassium levels. ??For accurate Potassium quantif ication in these patients send serum separator tube (gold top) for subsequent determinations. ??Contact the Clinical Chemistry Laboratory if there are any qu estions. Chloride 94 (L) 98 - 107 mmol/L [facility] LABORATORY CO2 21 (L) 22 - 31 mmol/L [facility] LABORATORY Anion Gap 8 5 - 15 mmol/L [facility] LABORATORY Calcium 7.4 (L) 8.5 - 10.5 mg/dL [facility] LABORATORY Estimated GFR 20 (L) >=60 mL/min/1.73 m?? [facility] LABORATORY Comment: This patient's estimated [...] Organization Address City/State/[place] [address] CENTRAL LINE (02/07/2022 12:52 [...] location at time of insertion: I 4 [facility] Rogers Solano APRN Rogers Solano APRN PROCEDURE/MINOR SURGICAL ORD ERABLES POCT Glucose (02/07/2022 8:22 AM EDT) athologist Signature POC Glucose 130 65 - 199 [facility] mg/dL [facility] LABORATORY Comment: Supplemental ranges: <140 mg/dL before meals <180 mg/dL all other times of the day Specimen Anatomical Collection Method Collection Time Receive d Time (Source) Location / / Volume Laterality Blood 02/07/2022 8:22 AM 8:22 EDT AM EDT Jayme Armstrong MD POINT OF CARE TEST ORDERABLE S Performing Organization Address City/State/[place] [address] (ABNORMAL) BLOOD GAS 2 ARTERIAL (02/07/2022 8:16 AM EDT) Analysis Performed At Patho logist Time Signature pH Art 7.50 (H) 7.35 - [facility] 7.45 [facility] LABORATORY pCO2 Art 29 (L) 35 - 45 [facility] mmHg [facility] LABORATORY pO2 Art 76 (L) 85 - 104 [facility] LABORATORY HCO3 Art 21.8 20.0 - [facility] 26.0 [facility] mmol/L [facility] LABORATORY BE Art -1.4 -3.0 - 3.0 [facility] mmol/L [facility] LABORATORY Hgb Blood Gas 8.0 (L) 13.7 - [facility] 16.5 g/dL [facility] LABORATORY O2HB Art 92.9 (L) 94.0 - [facility] 97.0 % [facility] LABORATORY COHB Art 0.3 % [facility] LABORATORY Comment: Nonsmokers: 0.5-1.5% COHB Smokers: Variable, but usually less than 10% Toxic: 20-30% COHB Lethal: Greater than 60% COHB METHB Art 1.4 <=1.5 % [facility] LABORATORY Na Whole Blood 117 (Critical) 135 - 145 mmol/L [facility] LABORATORY Comment: Noted by supervisor instrument maintenance. K Whole Blood 5.7 (H) 3.5 - 5.0 mmol/L [facility] LABORATORY Comment: Please note: Patients with WBC >100,000 may have falsely elevated Potassium levels. Contact the Clinical Chemistry L aboratory if there are any questions. ICa Whole Blood 1.11 (L) 1.15 - 1.33 mmol/L [facility] LABORATORY Comment: Note: ??Total bilirubin higher than 20 m g/dL may lead to falsely low ionized calcium. CL Whole Blood 94 (L) 98 - 107 mmol/L [facility] LABORATORY Gluc Whole Bld 116 65 - 199 mg/dL [facility] LABORATORY Comment: Diabetes: >=200 mg/dL plus symp toms. Lactate WB 1.3 0.5 - 2.2 mmol/L [facility] LABORATORY FIO2 Art 21 % [facility] LABORATORY PF Ratio Art 362 [facility] LABORATORY Specimen Anatomical Collection Method Collection Time Receive d Time (Source) Location / / Volume Laterality Blood 02/07/2022 8:16 AM 8:16 EDT AM EDT Jayme Armstrong MD CHEMISTRY ORDERABLES Performing Organization Address City/State/[place] [address] Scan, Peripheral Blood (02/07/2022 6:05 AM EDT) [facility] gist Method Time Signature Plat Estimate Decreased [facility] LABORATORY RBC Morphology Abnormal [facility] LABORATORY Microcytes 1-5 /HPF [facility] LABORATORY Polychromasia Present >5/HPF [facility] LABORATORY Ovalocytes 1-5 /HPF [facility] LABORATORY Clearwater Cells 1-5 /HPF [facility] LABORATORY Specimen Anatomical Collection Method Collection Time Receive d Time (Source) Location / / Volume Laterality Blood 02/07/2022 6:05 AM 6:11 EDT AM EDT Resulting Agency Comment Spec In Lab Collette ELLIS HEMATOLOGY ORDERABLES Performing Organization Address City/State/ZIP Code Phon e Number [place] [id number] [address]OS[address] LAB[address]ORY Drive (ABNORMAL) Differential, Automated (02/07/2022 6:05 AM EDT) [facility] Method Time Signature Neutrophils % 64.3 % [facility] LABORATORY Neutr Abs (ANC) 15.67 (H) 1.70 - [facility] 6.10 [facility] x10(3)/[facility] LABORATORY Lymphocytes % 6.4 % [facility] LABORATORY Lymphocytes Abs 1.6 0.9 - 3.2 [facility] x10(3)/[facility] LABORATORY Monocytes % 13.7 % [facility] LABORATORY Monocyte Abs 3.3 (H) 0.3 - 0.9 [facility] x10(3)/[facility] LABORATORY Eosinophils % 0.5 % [facility] LABORATORY Eosinophils Abs 0.1 0.0 - 0.4 [facility] x10(3)/[facility] LABORATORY Basophils % 0.5 % [facility] LABORATORY Basophils Abs 0.1 0.0 - 0.1 [facility] x10(3)/[facility] LABORATORY Immature Gran % 14.60 % [facility] LABORATORY Comment: Immature granulocytes(IG's)percentage an d absolute count will include metamyelocytes, myelocytes, and promyelo cytes. Blood smears from CBCs yielding IG's will be scanned manually for concor dance. If this scan disagrees with the automated IG or if promyelocytes are not ed, a manual differential will be performed. Gemini Gran Abs 3.54 (H) 0.00 - 0.04 x10(3)/[facility] LABORATORY Specimen Anatomical Collection Method Collection Time Receive d Time (Source) Location / / Volume Laterality Blood 02/07/2022 6:05 AM 6:11 EDT AM EDT Resulting Agency Comment Spec In Lab Collette ELLIS HEMATOLOGY ORDERABLES Performing Organization Address City/State/[place] [address] (ABNORMAL) Hemogram (02/07/2022 6:05 AM EDT) [facility] gist Method Time Signature WBC 24.3 (H) 4.0 - 9.5 [facility] x10(3)/[facility] LABORATORY RBC 2.41 (L) 4.58 [facility] 5.54 [facility] x10(6)/[facility] LABORATORY Hemoglobin 7.1 (L) 13.7 - [facility] 16.5 g/dL [facility] LABORATORY Hematocrit 19.7 (L) 40.5 - [facility] 48.5 % [facility] LABORATORY MCV 81.7 (L) 82.9 - [facility] 93.1 [facility] LABORATORY MCH 29.5 27.5 - [facility] 32.1 pg [facility] LABORATORY MCHC 36.0 (H) 32.0 - [facility] 35.7 g/dL [facility] LABORATORY Platelets 89 (L) 145 - 357 [facility] x10(3)/[facility] LABORATORY RDWSD 42.7 36.0 - [facility] 45.0 [facility] LABORATORY RDWCV 15.1 (H) 11.4 - [facility] MANDO 13.8 % [facility] LABORATORY MPV 9.8 7.6 - 12.9 [facility] LABORATORY nRBC % Auto 1.5 % [facility] LABORATORY nRBC Abs Auto 0.370 (H) 0.000 - [facility] 0.000 [facility] x10(3)/[facility] LABORATORY Specimen Anatomical Collection Method Collection Time Receive d Time (Source) Location / / Volume Laterality Blood 02/07/2022 6:05 AM 2 6:11 EDT AM EDT Resulting Agency Comment Spec In Lab Collette ELLIS HEMATOLOGY ORDERABLES Performing Organization Address City/[facility]/[place] [address] (ABNORMAL) Sodium (02/07/2022 6:05 AM EDT) P athologist Signature Sodium 126 (L) 135 - 145 [facility] mmol/L [facility] LABORATORY Specimen Anatomical Collection Method Collection Time Receive d Time (Source) Location / / Volume Laterality Blood 02/07/2022 6:05 AM 2 6:11 EDT AM EDT Resulting Agency Comment Spec In Lab Parrish Betancourt MD CHEMISTRY ORDERABLES Performing Organization Address City/[facility]/[place] [address] Transfuse RBC (02/07/2022 5:36 AM EDT) Jamye Armstrong MD NURSING TREATMENT ORDERABLES - BLOOD ADMIN Transfuse RBC (02/07/2022 5:36 AM EDT) Jayme Armstrong MD NURSING TREATMENT ORDERABLES - BLOOD ADMIN Prepare RBC (02/07/2022 4:55 AM EDT) P athologist Signature Dispensed? Yes [facility] LABORATORY Specimen Anatomical Collection Method Collection Time Receive d Time (Source) Location / / Volume Laterality Blood 02/07/2022 4:55 AM 2 4:51 EDT AM EDT Jayme Armstrong MD BLOOD BANK ORDERABLES Performing Organization Address City/[facility]/ZIP [facility] [place] [address] (ABNORMAL) Calcium Ionized Whole Blood, HONORIO (02/07/2022 3:00 AM EDT) Analysis Performed At Patho logist Time Signature pH Honorio 7.45 (H) 7.32 - [facility] 7.42 [facility] LABORATORY ICa Whole 1.14 (L) 1.15 - [facility] Blood 1.33 [facility] mmol/[facility] LABORATORY Comment: Note: ??Total bilirubin higher than 20 m g/dL may lead to falsely low ionized calcium. Specimen Anatomical Collection Method Collection Time Receive d Time (Source) Location / / Volume Laterality Blood ARTERIAL LINE / 02/07/2022 3:00 AM 2021 3:11 Unknown EDT AM EDT Resulting Agency Comment Spec In Lab Angelina Reynoso MD CHEMISTRY ORDERABLES Performing Organization Address [facility] Phon e Number [address] Fibrinogen (02/07/2022 2:10 AM EDT) P athologist Signature Fibrinogen 362 200 - 393 [facility] mg/dL [facility] LABORATORY Comment: A fibrinogen level >100 mg/dL is adequat e for hemostasis in most patients without underlying bleeding disorders. Specimen Anatomical Collection Method Collection Time Receive d Time (Source) Location / / Volume Laterality Blood 02/07/2022 2:10 AM 2 2:19 EDT AM EDT Resulting Agency Comment Spec In Lab Collette ELLIS HEMATOLOGY ORDERABLES Performing Organization Address [facility] Phon e Number [address] Prothrombin Time (02/07/2022 2:10 AM EDT) P athologist Signature PT 11.3 9.4 - 12.5 [facility] LABORATORY INR 1.0 [facility] LABORATORY Comment: An INR <2.0 [...] Organization Address City/State/[place] [address] (ABNORMAL) Platelet count (02/07/2022 2:10 AM EDT) athologist Signature Platelets 128 (L) 145 - 357 [facility] x10(3)/[facility] LABORATORY Plat Immature 7.0 0.0 - 7.4 [facility] % % [facility] LABORATORY Comment: Limitation of the Immature Platelet Frac tion (IPF)-May be less reliable when the platelet count is less than 22m480/u L due to statistical imprecision. The IPF [...] in a decreased state of production. References: [employer] The Clinical Value of the Immature Platelet Fraction (IPF) in Cell Recovery Document Number [id number] 12/2010 [employer] The Role of the Imm ature Platelet Fraction (IPF) in the Differential Diagnosis of Thrombocytopen ia, Document [id number] V012/10/13 P012/12 Specimen Anatomical Collection Method Collection Time Receive d Time (Source) Location / / Volume Laterality Blood 02/07/2022 2:10 AM 2:19 EDT AM EDT Resulting Agency Comment Spec In Lab Collette ELLIS HEMATOLOGY ORDERABLES Performing Organization Address City/State/[place] [address] (ABNORMAL) Hematocrit (02/07/2022 2:10 AM EDT) athologist Signature Hematocrit 19.8 (L) 40.5 - [facility] 48.5 % [facility]OR[facility]ORY Specimen Anatomical Collection Method Collection Time Receive d Time (Source) Location / / Volume Laterality Blood 02/07/2022 2:10 AM 2 2:19 EDT AM EDT Resulting Agency Comment Spec In Lab Collette ELLIS HEMATOLOGY ORDERABLES Performing Organization Address City/[facility]/[place] [address] (ABNORMAL) Hemoglobin (02/07/2022 2:10 AM EDT) P athologist Signature Hemoglobin 7.2 (L) 13.7 - 16.5 [facility] g/dL [facility] Specimen Anatomical Collection Method Collection Time Receive d Time (Source) Location / / Volume Laterality Blood 02/07/2022 2:10 AM 2 2:19 EDT AM EDT Resulting Agency Comment Spec In Lab Collette ELLIS HEMATOLOGY ORDERABLES Performing Organization Address City/[facility]/[place] [address] (ABNORMAL) BLOOD GAS 2 ARTERIAL (02/07/2022 12:52 AM EDT) Analysis Performed At Patho logist Time Signature pH Art 7.44 7.35 - [facility] 7.45 [facility] pCO2 Art 34 (L) 35 - 45 [facility] mmHg [facility] pO2 Art 81 (L) 85 - 104 [facility] mmHg [facility] HCO3 Art 22.4 20.0 - [facility] 26.0 [facility] mmol/L [facility] BE Art -1.7 -3.0 - 3.0 [facility] mmol/L [facility] Hgb Blood Gas 8.5 (L) 13.7 - [facility] 16.5 g/dL [facility] O2HB Art 93.4 (L) 94.0 - [facility] 97.0 % [facility] COHB Art 0.3 % [facility] Comment: Nonsmokers: 0.5-1.5% COHB Smokers: Variable, but usually less than 10% Toxic: 20-30% COHB Lethal: Greater than 60% COHB METHB Art 1.0 <=1.5 % [facility] Na Whole Blood 118 (Critical) 135 - 145 mmol/L [facility] Comment: Noted by supervisor instrument maintenance. K Whole Blood 5.6 (H) 3.5 - 5.0 mmol/L [facility] Comment: Please note: Patients with WBC >100,000 may have falsely elevated Potassium levels. Contact the Clinical Chemistry L aboratory if there are any questions. ICa Whole Blood 1.11 (L) 1.15 - 1.33 mmol/L [facility] Comment: Note: ??Total bilirubin higher than 20 m g/dL may lead to falsely low ionized calcium. CL Whole Blood 94 (L) 98 - 107 mmol/L [facility] Gluc Whole Bld 136 65 - 199 mg/dL [facility] Comment: Diabetes: >=200 mg/dL plus symp toms. Lactate WB 1.4 0.5 - 2.2 mmol/L [facility] FIO2 Art 21 % [facility] PF Ratio Art 386 [facility] Specimen Anatomical Collection Method Collection Time Receive d Time (Source) Location / / Volume Laterality Blood 02/07/2022 12:52 02/07/2022 AM EDT 12:52 AM EDT Jayme Armstrong MD CHEMISTRY ORDERABLES Performing Organization Address City/State/[place] [address] (ABNORMAL) Basic Metabolic Panel (non-fasting) (02/07/2022 12:47 AM EDT) P athologist Signature Glucose Lvl 136 65 - 199 [facility] mg/dL [facility] Comment: Diabetes: >=200 mg/dL plus symp toms BUN 38 (H) 10 - 20 mg/dL [facility] Creatinine 3.43 (H) 0.80 - 1.50 mg/dL [facility] Comment: result rechecked-sf Sodium 125 (L) 135 - 145 mmol/L [facility] Potassium 5.8 (H) 3.5 - 5.0 mmol/L [facility] Comment: Please note: ??Patients with WBC >100,00 0 may have falsely elevated Potassium levels. ??For accurate Potassium quantif ication in these patients send serum separator tube (gold top) for subsequent determinations. ??Contact the Clinical Chemistry Laboratory if there are any qu estions. Chloride 94 (L) 98 - 107 mmol/L [facility] CO2 22 22 - 31 mmol/L [facility] Anion Gap 9 5 - 15 mmol/L [facility] Calcium 7.6 (L) 8.5 - 10.5 mg/dL [facility] Comment: result rechecked-sf Estimated GFR 24 (L) >=60 mL/min/1.73 m?? [facility] Comment: This patient's estimated [...] Organization Address City/State/[place] [address] (ABNORMAL) Phosphorus (02/07/2022 12:47 AM EDT) P athologist Signature Phosphorus 5.0 (H) 2.5 - 4.5 [facility] mg/dL [facility] Specimen Anatomical Collection Method Collection Time Receive d Time (Source) Location / / Volume Laterality Blood 02/07/2022 12:47 02/07/2022 1:02 AM EDT AM EDT Resulting Agency Comment Spec In Lab Gela Novak MD CHEMISTRY ORDERABLES Performing Organization Address City/[facility]/[place] [address] Magnesium (02/07/2022 12:47 AM EDT) P athologist Signature Magnesium 0.84 0.69 - 1.07 [facility] mmol/L [facility] Specimen Anatomical Collection Method Collection Time Receive d Time (Source) Location / / Volume Laterality Blood 02/07/2022 12:47 02/07/2022 1:02 AM EDT AM EDT Resulting Agency Comment Spec In Lab Gela Novak MD CHEMISTRY ORDERABLES Performing Organization Address City/[facility] [place] [address] Fibrinogen (02/06/2022 11:11 PM EDT) P athologist Signature Fibrinogen 362 200 - 393 [facility] mg/dL [facility] Comment: A fibrinogen level >100 mg/dL is adequat e for hemostasis in most patients without underlying bleeding disorders. Specimen Anatomical Collection Method Collection Time Receive d Time (Source) Location / / Volume Laterality Blood 02/06/2022 11:11 02/06/2022 PM EDT 11:15 PM EDT Resulting Agency Comment Spec In Lab Jeanette Escamilla APRN HEMATOLOGY ORDERABLES Performing Organization Address City/[facility]/ZIP [facility] Phon e Number [address] Prothrombin Time (02/06/2022 11:11 PM EDT) P athologist Signature PT 11.0 9.4 - 12.5 [facility] LABORATORY INR 1.0 [facility] Comment: An INR <2.0 [...] Organization Address City/State/[place] [address] (ABNORMAL) Platelet count (02/06/2022 11:11 PM EDT) athologist Signature Platelets 125 (L) 145 - 357 [facility] x10(3)/[facility] LABORATORY Plat Immature 5.3 0.0 - 7.4 [facility] % % [facility] Comment: Limitation of the Immature Platelet Frac tion (IPF)-May be less reliable when the platelet count is less than 11m351/u L due to statistical imprecision. The IPF [...] in a decreased state of production. References: [employer] The Clinical Value of the Immature Platelet Fraction (IPF) in Cell Recovery Document Number [id number] 12/2010 [employer] The Role of the Imm ature Platelet Fraction (IPF) in the Differential Diagnosis of Thrombocytopen ia, Document [id number] V012/10/13 P012/12 Specimen Anatomical Collection Method Collection Time Receive d Time (Source) Location / / Volume Laterality Blood 02/06/2022 11:11 02/06/2022 PM EDT 11:15 PM EDT Resulting Agency Comment Spec In Lab Jeanette Escamilla APRN HEMATOLOGY ORDERABLES Performing Organization Address City/[facility]/[place] [address] (ABNORMAL) Hematocrit (02/06/2022 11:11 PM EDT) P athologist Signature Hematocrit 20.8 (L) 40.5 [facility] % [facility] Specimen Anatomical Collection Method Collection Time Receive d Time (Source) Location / / Volume Laterality Blood 02/06/2022 11:11 02/06/2022 PM EDT 11:15 PM EDT Resulting Agency Comment Spec In Lab Jenaette Escamilla APRN HEMATOLOGY ORDERABLES Performing Organization Address City/[facility]/[place] [address] (ABNORMAL) Hemoglobin (02/06/2022 11:11 PM EDT) P athologist Signature Hemoglobin 7.7 (L) 13.7 - 16.5 [facility] g/dL [facility] Specimen Anatomical Collection Method Collection Time Receive d Time (Source) Location / / Volume Laterality Blood 02/06/2022 11:11 02/06/2022 PM EDT 11:15 PM EDT Resulting Agency Comment Spec In Lab Jeanette Escamilla APRN HEMATOLOGY ORDERABLES Performing Organization Address City/[facility]/[place] [address] (ABNORMAL) Sodium (02/06/2022 11:11 PM EDT) P athologist Signature Sodium 124 (L) 135 - 145 [facility] mmol/L [facility] Specimen Anatomical Collection Method Collection Time Receive d Time (Source) Location / / Volume Laterality Blood 02/06/2022 11:11 02/06/2022 PM EDT 11:15 PM EDT Resulting Agency Comment Spec In Lab Parrish Betancourt MD CHEMISTRY ORDERABLES Performing Organization Address City/[facility]/[place] [address] (ABNORMAL) Calcium Ionized Whole Blood, HONORIO (02/06/2022 10:51 PM EDT) Analysis Performed At Patho logist Time Signature pH Honorio 7.44 (H) 7.32 - [facility] 7.42 [facility] ICa Whole 1.07 (L) 1.15 - [facility] Blood 1.33 [facility] mmol/L [facility] Comment: Note: ??Total bilirubin higher than 20 m g/dL may lead to falsely low ionized calcium. Specimen Anatomical Collection Method Collection Time Receive d Time (Source) Location / / Volume Laterality Blood ARTERIAL LINE / 02/06/2022 10:51 02/07/20 22 Unknown PM EDT 11:06 PM EDT Resulting Agency Comment Spec In Lab Angelina Reynoso MD CHEMISTRY ORDERABLES Performing Organization Address City/[facility]/[place] [address] Fibrinogen (02/06/2022 10:20 PM EDT) P athologist Signature Fibrinogen 351 200 - 393 [facility] mg/dL [facility] Comment: A fibrinogen level >100 mg/dL is adequat e for hemostasis in most patients without underlying bleeding disorders. Specimen Anatomical Collection Method Collection Time Receive d Time (Source) Location / / Volume Laterality Blood 02/06/2022 10:20 02/06/2022 PM EDT 11:10 PM EDT Resulting Agency Comment Spec In Lab Jeanette Escamilla APRN HEMATOLOGY ORDERABLES Performing Organization Address City/[facility]/[place] [address] Prothrombin Time (02/06/2022 10:20 PM EDT) P athologist Signature PT 11.1 9.4 - 12.5 [facility] LABORATORY INR 1.0 [facility] LABOR[facility]ORY Comment: An INR <2.0 [...] Agency Comment Spec In Lab Jeanette Escamilla [employer]ATOR HEMATOLOGY ORDERABLES Performing Organization Address City/State/[place] [address] (ABNORMAL) Platelet count (02/06/2022 10:20 PM EDT) P athologist Signature Platelets 126 (L) 145 - 357 [facility] x10(3)/[facility] LABORATORY Plat Immature 5.9 0.0 - 7.4 [facility] % % [facility] Comment: Limitation of the Immature Platelet Frac tion (IPF)-May be less reliable when the platelet count is less than 96s761/u L due to statistical imprecision. The IPF [...] in a decreased state of production. References: [employer] The Clinical Value of the Immature Platelet Fraction (IPF) in Cell Recovery Document Number [id number] 12/2010 [employer] The Role of the Imm ature [...] Organization Address City/State/[place] [address] (ABNORMAL) Hematocrit (02/06/2022 10:20 PM EDT) athologist Signature Hematocrit 20.5 (L) 40.5 - [facility] 48.5 % [facility] Specimen Anatomical Collection Method Collection Time Receive d Time (Source) Location / / Volume Laterality Blood 02/06/2022 10:20 02/06/2022 PM EDT 11:10 PM EDT Resulting Agency Comment Spec In Lab Jeanette Escamilla APRN HEMATOLOGY ORDERABLES Performing Organization Address City/[facility]/ZIP Code Phon e Number [address] (ABNORMAL) Hemoglobin (02/06/2022 10:20 PM EDT) athologist Signature Hemoglobin 7.6 (L) 13.7 - 16.5 [facility] g/dL [facility] Specimen Anatomical Collection Method Collection Time Receive d Time (Source) Location / / Volume Laterality Blood 02/06/2022 10:20 02/06/2022 PM EDT 11:10 PM EDT Resulting Agency Comment Spec In Lab Jeanette Escamilla APRN HEMATOLOGY ORDERABLES Performing Organization Address City/[facility]/[place] [address] Fibrinogen (02/06/2022 7:45 PM EDT) athologist [facility] Fibrinogen 321 200 - 393 [facility] mg/dL [facility] Comment: A fibrinogen level >100 mg/dL is adequat e for hemostasis in most patients without underlying bleeding disorders. Specimen Anatomical Collection Method Collection Time Receive d Time (Source) Location / / Volume Laterality Blood 02/06/2022 7:45 PM 7:56 EDT PM EDT Resulting Agency Comment Spec In Lab Jeanette Escamilla APRN HEMATOLOGY ORDERABLES Performing Organization Address City/[facility]/[place] [address] Prothrombin Time (02/06/2022 7:45 PM EDT) athologist Signature PT 11.0 9.4 - 12.5 [facility] sec [facility]ORY INR 1.0 [facility] Comment: An INR <2.0 [...] City/State/ZIP Code Phon e Number [place] [id number] (ABNORMAL) Platelet count (02/06/2022 7:45 PM EDT) athologist Signature Platelets 137 (L) 145 - 357 [facility] x10(3)/[facility] LABORATORY Plat Immature 4.8 0.0 - 7.4 [facility] % % [facility] Comment: Limitation of the Immature Platelet Frac tion (IPF)-May be less reliable when the platelet count is less than 68v581/u L due to statistical imprecision. The IPF [...] in a decreased state of production. References: [employer] The Clinical Value of the Immature Platelet Fraction (IPF) in Cell Recovery Document Number [id number] 12/2010 [employer] The Role of the Imm ature Platelet Fraction (IPF) in the Differential Diagnosis of Thrombocytopen ia, Document [id number] V05/07/14 P05 Specimen Anatomical Collection Method Collection Time Receive d Time (Source) Location / / Volume Laterality Blood 02/06/2022 7:45 PM 2 7:56 EDT PM EDT Resulting Agency Comment Spec In Lab Jeanette Escamilla APRN HEMATOLOGY ORDERABLES Performing Organization Address City/[facility]/[place] [address] (ABNORMAL) Hematocrit (02/06/2022 7:45 PM EDT) P athologist Signature Hematocrit 22.1 (L) 40.5 - [facility] 48.5 % [facility] Specimen Anatomical Collection Method Collection Time Receive d Time (Source) Location / / Volume Laterality Blood 02/06/2022 7:45 PM 2 7:56 EDT PM EDT Resulting Agency Comment Spec In Lab Jeanette Escamilla APRN HEMATOLOGY ORDERABLES Performing Organization Address City/[facility]/[place] [address] (ABNORMAL) Hemoglobin (02/06/2022 7:45 PM EDT) P athologist Signature Hemoglobin 8.1 (L) 13.7 - 16.[address] [facility] g/dL [facility] Specimen Anatomical Collection Method Collection Time Receive d Time (Source) Location / / Volume Laterality Blood 02/06/2022 7:45 PM 2 7:56 EDT PM EDT Resulting Agency Comment Spec In Lab Jeanette Escamilla B[employer] M[employer] OPERATOR HEMATOLOGY ORDERABLES Performing Organization Address City/[facility]/[place] [address] (ABNORMAL) Electrolytes panel (02/06/2022 7:45 PM EDT) P athologist Signature Sodium 123 (L) 135 - [address] [facility] mmol/L [facility] Potassium 6.1 3.5 - 5.0 [facility] ([facility] mmol/L [facility] Comment: Called by: renuka, Read back by: dixie diego, Date/Time:02/06/22 20:32. Please note: ??Patients with WBC >100,00 0 may have falsely elevated Potassium levels. ??For accurate Potassium quantif ication in these patients send serum separator tube (gold top) for subsequent determinations. ??Contact the Clinical Chemistry Laboratory if there are any qu estions. Chloride 94 (L) 98 - 107 mmol/L [facility] CO2 21 (L) 22 - 31 mmol/L [facility] Anion Gap 8 5 - 15 mmol/L [facility] LABORATORY Specimen Anatomical Collection Method Collection Time Receive d Time (Source) Location / / Volume Laterality Blood 02/06/2022 7:45 PM 2 7:56 EDT PM EDT Resulting Agency Comment Spec In Lab Angelina Reynoso MD CHEMISTRY ORDERABLES Performing Organization Address City/State/[place] [address] (ABNORMAL) BLOOD GAS 2 ARTERIAL (02/06/2022 7:44 PM EDT) Analysis Performed At Patho logist Time Signature pH Art 7.44 7.35 - [facility] 7.45 [facility] pCO2 Art 31 (L) 35 - 45 [facility] mmHg [facility] pO2 Art 86 85 - 104 [facility] mmHg [facility] HCO3 Art 20.4 20.0 - [facility] 26.0 [facility] mmol/L [facility] BE Art -3.7 (L) -3.0 - 3.0 [facility] mmol/L [facility] Hgb Blood Gas 9.2 (L) 13.7 - [facility] 16.5 g/dL [facility] O2HB Art 94.1 94.0 - [facility] 97.0 % [facility] COHB Art 0.3 % [facility] Comment: Nonsmokers: 0.5-1.5% COHB Smokers: Variable, but usually less than 10% Toxic: 20-30% COHB Lethal: Greater than 60% COHB METHB Art 0.9 <=1.5 % [facility]OR[facility] Na Whole Blood 118 (Critical) 135 - 145 mmol/L [facility] Comment: Noted by supervisor instrument maintenance. K Whole Blood 5.8 (H) 3.5 - 5.0 mmol/L [facility] Comment: Please note: Patients with WBC >100,000 may have falsely elevated Potassium levels. Contact the Clinical Chemistry L aboratory if there are any questions. ICa Whole Blood 1.03 (L) 1.15 - 1.33 mmol/L [facility] Comment: Note: ??Total bilirubin higher than 20 m g/dL may lead to falsely low ionized calcium. CL Whole Blood 94 (L) 98 - 107 mmol/L [facility] Gluc Whole Bld 143 65 - 199 mg/dL [facility] Comment: Diabetes: >=200 mg/dL plus symp toms. Lactate WB 1.5 0.5 - 2.2 mmol/L [facility] LABORATORY FIO2 Art 21 % [facility] PF Ratio Art 410 [facility] LABORATORY Specimen Anatomical Collection Method Collection Time Receive d Time (Source) Location / / Volume Laterality Blood 02/06/2022 7:44 PM 7:44 EDT PM EDT Jayme Armstrong MD CHEMISTRY ORDERABLES Performing Organization Address City/State/[place] [address] (ABNORMAL) BLOOD GAS 2 ARTERIAL (02/06/2022 5:47 PM EDT) Analysis Performed At Patho logist Time Signature pH Art 7.42 7.35 - [facility] 7.45 [facility] pCO2 Art 30 (L) 35 - 45 [facility] LABORATORY pO2 Art 68 (L) 85 - 104 [facility] LABORATORY HCO3 Art 19.2 (L) 20.0 - [facility] 26.0 [facility] mmol/[facility] LABORATORY BE Art -5.2 (L) -3.0 - 3.0 [facility] mmol/L [facility] Hgb Blood Gas 9.3 (L) 13.7 - [facility] 16.5 g/dL [facility] O2HB Art 91.8 (L) 94.0 - [facility] 97.0 % [facility] COHB Art 0.3 % [facility] Comment: Nonsmokers: 0.5-1.5% COHB Smokers: Variable, but usually less than 10% Toxic: 20-30% COHB Lethal: Greater than 60% COHB METHB Art 0.9 <=1.5 % [facility] Na Whole Blood 117 (Critical) 135 - 145 mmol/L [facility] Comment: Noted by supervisor instrument maintenance. K Whole Blood 6.0 (H) 3.5 - 5.0 mmol/L [facility] Comment: Please note: Patients with WBC >100,000 may have falsely elevated Potassium levels. Contact the Clinical Chemistry L aboratory if there are any questions. ICa Whole Blood 0.98 (L) 1.15 - 1.33 mmol/L [facility] Comment: Note: ??Total bilirubin higher than 20 m g/dL may lead to falsely low ionized calcium. CL Whole Blood 93 (L) 98 - 107 mmol/L [facility] Gluc Whole Bld 131 65 - 199 mg/dL [facility] Comment: Diabetes: >=200 mg/dL plus symp toms. Lactate WB 1.8 0.5 - 2.2 mmol/L [facility] FIO2 Art 21 % [facility] PF Ratio Art 324 [facility] LAB[facility]ORY Specimen Anatomical Collection Method Collection Time Receive d Time (Source) Location / / Volume Laterality Blood 02/06/2022 5:47 PM 5:47 EDT PM EDT Jayme Armstrong MD CHEMISTRY ORDERABLES Performing Organization Address City/State/[place] [address] POCT Glucose (02/06/2022 5:44 PM EDT) athologist Signature POC Glucose 153 65 - 199 [facility] mg/dL [facility] Comment: Supplemental ranges: <140 mg/dL before meals <180 mg/dL all other times of the day Specimen Anatomical Collection Method Collection Time Receive d Time (Source) Location / / Volume Laterality Blood 02/06/2022 5:44 PM 2 5:44 EDT PM EDT Jayme Armstrong MD POINT OF CARE TEST ORDERABLE S Performing Organization Address [facility] [facility] [place] [address] Fibrinogen (02/06/2022 4:33 PM EDT) P athologist Signature Fibrinogen 300 200 - 393 [facility]dL [facility] Comment: OR Result called by ?? [...] Armstrong MD HEMATOLOGY ORDERABLES Performing Organization Address [facility] [place] [address] APTT (02/06/2022 4:33 PM EDT) P athologist Signature PTT 25 25 - 37 sec [facility] Comment: OR Result called [...] Armstrong MD HEMATOLOGY ORDERABLES Performing Organization Address City/[facility]/[place] [address] Prothrombin Time (02/06/2022 4:33 PM EDT) P athologist Signature PT 11.2 9.4 - 12.5 [facility] LABORATORY Comment: OR Result called by ?? PARSAD OR Result s read back by: ? Divina Otero at 2022-02-06 16:54:39 INR 1.0 [facility] LABORATORY Comment: OR Result called by [...] Armstrong MD HEMATOLOGY ORDERABLES Performing Organization Address City/[facility]/[place] [address] (ABNORMAL) Phosphorus (02/06/2022 4:20 PM EDT) P athologist Signature Phosphorus 7.4 (H) 2.5 - 4.5 [facility] mg/dL [facility]OR[facility]ORY Specimen Anatomical Collection Method Collection Time Receive d Time (Source) Location / / Volume Laterality Blood Venous Draw / 02/06/2022 4:20 PM 02/07/20 22 6:05 Unknown EDT PM EDT Resulting Agency Comment Spec In Lab Jeanette Escamilla APRN CHEMISTRY ORDERABLES Performing Organization Address City/State/[place] [address] [facility] [address] [address] Magnesium (02/06/2022 4:20 PM EDT) P athologist Signature Magnesium 0.93 0.69 - 1.07 [facility] mmol/L [facility]OR[facility]ORY Specimen Anatomical Collection Method Collection Time Receive d Time (Source) Location / / Volume Laterality Blood Venous Draw / 02/06/2022 4:20 PM 02/07/20 6:05 Unknown EDT PM EDT Resulting Agency Comment Spec In Lab Jeanette Escamilla APRN CHEMISTRY ORDERABLES Performing Organization Address City/State/ZIP Code Phon e Number [place] [phone] [facility] [address] (ABNORMAL) Differential, Automated (02/06/2022 4:20 PM EDT) Patholo gist Method Time Signature Neutrophils % 56.4 % [facility] Neutr Abs (ANC) 13.74 (H) 1.70 - [facility] 6.10 [facility] x10(3)/[facility] LABORATORY Lymphocytes % 9.1 % [facility] Lymphocytes Abs 2.2 0.9 - 3.2 [facility] x10(3)/[facility] LABORATORY Monocytes % 13.3 % [facility] Monocyte Abs 3.2 (H) 0.3 - 0.9 [facility] x10(3)/[facility] LABORATORY Eosinophils % 1.1 % [facility] Eosinophils Abs 0.3 0.0 - 0.4 [facility] x10(3)/[facility] LABORATORY Basophils % 1.1 % [facility] Basophils Abs 0.3 (H) 0.0 - 0.1 [facility] x10(3)/[facility] LABORATORY Immature Gran % 19.00 % [facility] Comment: Immature granulocytes(IG's)percentage an d absolute count will include metamyelocytes, myelocytes, and promyelo cytes. Blood smears from CBCs yielding IG's will be scanned manually for concsemaj dannoe. If this scan disagrees with the automated IG or if promyelocytes are not ed, a manual differential will be performed. Gemini Gran Abs 4.64 (H) 0.00 - 0.04 x10(3)/[facility] LABORATORY Specimen Anatomical Collection Method Collection Time Receive d Time (Source) Location / / Volume Laterality Blood 02/06/2022 4:20 PM 4:33 EDT PM EDT Resulting Agency Comment Spec In Lab Jayme Armstrong MD HEMATOLOGY ORDERABLES Performing Organization Address City/State/[place] [address] (ABNORMAL) Hemogram (02/06/2022 4:20 PM EDT) athologist Signature WBC 24.4 (H) 4.0 - 9.5 [facility] x10(3)/[facility] LABORATORY RBC 2.87 (L) 4.58 - [facility] 5.54 [facility] x10(6)/[facility] LABORATORY Hemoglobin 8.5 (L) 13.7 - [facility] 16.5 g/dL [facility]ORY Hematocrit 23.4 (L) 40.5 - [facility] 48.5 % [facility] Comment: This result has been called to DIVINA MORA by Tamara Hernandez on 02 06 2022 at 1653, and has been read back. MCV 81.5 (L) 82.9 - 93.1 [facility] LABORATORY MCH 29.6 27.5 - 32.1 pg [facility]ORY MCHC 36.3 (H) 32.0 - 35.7 g/dL [facility] LABORATORY Platelets 110 (L) 145 - 357 x10(3)/[facility] LABORATORY RDWSD 39.9 36.0 - 45.0 [facility] LABORATORY RDWCV 13.9 (H) 11.4 - 13.8 % [facility] LABORATORY MPV 9.7 7.6 - 12.9 [facility] LABORATORY nRBC % Auto 2.0 % [facility] LABORATORY nRBC Abs Auto 0.500 (H) 0.000 - 0.000 x10(3)/mcL [facility] LABORATORY Specimen Anatomical Collection Method Collection Time Receive d Time (Source) Location / / Volume Laterality Blood 02/06/2022 4:20 PM 4:33 EDT PM EDT Resulting Agency Comment Spec In Lab Jayme Armstrong MD HEMATOLOGY ORDERABLES Performing Organization Address City/State/[place] [address] (ABNORMAL) Basic Metabolic Panel (non-fasting) (02/06/2022 4:20 PM EDT) athologist Signature Glucose Lvl 117 65 - 199 [facility] mg/dL [facility] Comment: Diabetes: >=200 mg/dL plus symp toms BUN 47 (H) 10 - 20 mg/dL [facility] LABORATORY Creatinine 4.73 (H) 0.80 - 1.50 mg/dL [facility] Sodium 122 (L) 135 - 145 mmol/L [facility] LABORATORY Potassium 6.1 (Critical) 3.5 - 5.0 mmol/L [facility] Comment: Called by [facility]/Read back by Virgie gunter/02/06/2022 @ 0009 Please note: ??Patients with WBC >100,00 0 may have falsely elevated Potassium levels. ??For accurate Potassium quantif ication in these patients send serum separator tube (gold top) for subsequent determinations. ??Contact the Clinical Chemistry Laboratory if there are any qu estions. Chloride 92 (L) 98 - 107 mmol/L [facility] CO2 21 (L) 22 - 31 mmol/L [facility] Anion Gap 9 5 - 15 mmol/L [facility]ORY Calcium 6.7 (Critical) 8.5 - 10.5 mg/dL [facility] Comment: Called by [facility]/Read back by Soila Castle/02/06/2022 @ 1712 Estimated GFR 16 (L) >=60 mL/min/1.73 m?? [facility] Comment: This patient's estimated [...] City/State/ZIP Code Phon e Number [place] [phone] (ABNORMAL) BLOOD GAS 2 ARTERIAL (02/06/2022 3:54 PM EDT) Analysis Performed At Patho logist Time Signature pH Art 7.37 7.35 - [facility] 7.45 [facility]ORATORY pCO2 Art 38 35 - 45 [facility] LABORATORY pO2 Art 325 (H) 85 - 104 [facility] LABORATORY HCO3 Art 21.8 20.0 - [facility] 26.0 [facility] mmol/L [facility] BE Art -3.4 (L) -3.0 - 3.0 [facility] mmol/L [facility] Hgb Blood Gas 8.8 (L) 13.7 - [facility] 16.5 g/dL [facility] O2HB Art 98.0 (H) 94.0 - [facility] 97.0 % [facility]ORATORY COHB Art 1.1 % [facility] Comment: Nonsmokers: 0.5-1.5% COHB Smokers: Variable, but usually less than 10% Toxic: 20-30% COHB Lethal: Greater than 60% COHB METHB Art 0.3 <=1.5 % [facility] Na Whole Blood 117 (Critical) 135 - 145 mmol/L [facility] Comment: Critical notified to Amber Ray by ins trument landfill gas collection operator immediately following run time. K Whole Blood 5.7 (H) 3.5 - 5.0 mmol/L [facility] Comment: Please note: Patients with WBC >100,000 may have falsely elevated Potassium levels. Contact the Clinical Chemistry L aboratory if there are any questions. ICa Whole Blood 1.00 (L) 1.15 - 1.33 mmol/L [facility] Comment: Note: ??Total bilirubin higher than 20 m g/dL may lead to falsely low ionized calcium. CL Whole Blood 93 (L) 98 - 107 mmol/L [facility] Gluc Whole Bld 115 65 - 199 mg/dL [facility] Comment: Diabetes: >=200 mg/dL plus symp toms. Lactate WB 1.4 0.5 - 2.2 mmol/L [facility] LABORATORY Specimen Anatomical Collection Method Collection Time Receive d Time (Source) Location / / Volume Laterality Blood 02/06/2022 3:54 PM 3:54 EDT PM EDT Jayme Armstrong MD CHEMISTRY ORDERABLES Performing Organization Address City/State/ZIP Code Phon e Number [place] [phone] Drive IR Arteriogram Lower Extremity [...] 2. 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 Monitor for Right [...] anesthesia/sedation: General an esthesia Anesthesia/sedation [facility] by: [facility] Total intra-service sedation time (minut es): Please refer to anesthesia notes for further details. Access Local anesthesia was administered. The v essel was sonographically evaluated and judged to be patent. Real time ultrasoun d was used to visualize needle entry into the vessel and a permanent image wa s stored. A 5 Gabonese sheath was placed. Vessel accessed: Right common femoral ar timo Access technique: Micropuncture set with 21 gauge needle Left pelvic angiography The left pelvic arterial system was cath eterized using a 150 cm 0.035 3J guidewire, 5 Gabonese Berenstein catheter, 3 Gabonese renegade STC microcatheter and wire. Vessel catheterized: [...] who have questions please contact the health memory care program director that requested your imaging first. ? Electronically signed by: Nicole escobar MD, [facility] ([phone]), at 02/08/2022 3:14 PM Narrative 02/08/2022 3:14 [...] 2. 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 Monitor for Right [...] anesthesia/sedation: General an esthesia Anesthesia/sedation administered by: [facility] Total intra-service sedation time (minut es): Please refer to anesthesia notes for further details. Access Local anesthesia was administered. The v essel was sonographically evaluated and judged to be patent. Real time ultrasoun d was used to visualize needle entry into the vessel and a permanent image wa s stored. A 5 Gabonese sheath was placed. Vessel accessed: Right common femoral ar timo Access technique: Micropuncture set with 21 gauge needle Left pelvic angiography The left pelvic arterial system was cath eterized using a 150 cm 0.035 3J guidewire, 5 Gabonese Berenstein catheter, 3 Gabonese renegade STC microcatheter and wire. Vessel catheterized: Common iliac artery . Findings: Angiography not performed Vessel catheterized: External iliac slias ry. Findings: Patent distal external iliac a [...] ho have questions please contact the health memory care program director that requested your imaging first. Electronically signed by: Nicole escobar MD, [facility] ([phone]), at 02/08/2022 3:14 PM Jeanette Escamilla APRN IMG IR ORDERABLES POCT Glucose (02/06/2022 12:16 PM EDT) athologist Signature POC Glucose 167 65 - [address] [facility] [facility] mg/dL [facility] Comment: Supplemental ranges: <140 mg/dL before meals <180 mg/dL all other times of the day Specimen Anatomical Collection Method Collection Time Receive d Time (Source) Location / / Volume Laterality Blood 02/06/2022 12:16 02/06/2022 PM EDT 12:16 PM EDT Jayme Armstrong MD POINT OF CARE TEST ORDERABLE S Performing Organization Address City/State/[place] [address] Fibrinogen (02/06/2022 11:30 AM EDT) athologist Signature Fibrinogen 279 200 - 393 [facility] mg/dL [facility] Comment: A fibrinogen level >100 mg/dL is adequat e for hemostasis in most patients without underlying bleeding disorders. Specimen Anatomical Collection Method Collection Time Receive d Time (Source) Location / / Volume Laterality Blood 02/06/2022 11:30 02/06/2022 AM EDT 11:36 AM EDT Resulting Agency Comment Spec In Lab Jeanette Escamilla APRN HEMATOLOGY ORDERABLES Performing Organization Address City/State/[place] [address] Prothrombin Time (02/06/2022 11:30 AM EDT) athologist Signature PT 11.6 9.4 - 12.5 [facility] LABORATORY INR 1.0 [facility] Comment: An INR <2.0 [...] Agency Comment Spec In Lab Jeanette Escamilla BALL MILL OPERATOR HEMATOLOGY ORDERABLES Performing Organization Address City/State/[place] [address] Platelet count (02/06/2022 11:30 AM EDT) athologist Signature Platelets 164 145 - 357 [facility] x10(3)/[facility] LABORATORY Plat Immature 4.2 0.0 - 7.4 [facility] % % [facility] Comment: Limitation of the Immature Platelet Frac tion (IPF)-May be less reliable when the platelet count is less than 84z716/u L due to statistical imprecision. The IPF [...] in a decreased state of production. References: [employer] The Clinical Value of the Immature Platelet Fraction (IPF) in Cell Recovery Document Number [id number] 12/2010 [employer] The Role of the Imm ature Platelet Fraction (IPF) in the Differential Diagnosis of Thrombocytopen ia, Document MKT-[id number] V012/10/13 P012/12 Specimen Anatomical Collection Method Collection Time Receive d Time (Source) Location / / Volume Laterality Blood 02/06/2022 11:30 02/06/2022 AM EDT 11:36 AM EDT Resulting Agency Comment Spec In Lab Jeanette Escamilla APRN HEMATOLOGY ORDERABLES Performing Organization Address City/[facility]/[place] [address] (ABNORMAL) Hematocrit (02/06/2022 11:30 AM EDT) P athologist Signature Hematocrit 24.7 (L) 40.5 - [facility] 48.5 % [facility]OR[facility]ORY Specimen Anatomical Collection Method Collection Time Receive d Time (Source) Location / / Volume Laterality Blood 02/06/2022 11:30 02/06/2022 AM EDT 11:36 AM EDT Resulting Agency Comment Spec In Lab Jeanette Escamilla APRN HEMATOLOGY ORDERABLES Performing Organization Address [facility]/[place] [address] (ABNORMAL) Hemoglobin (02/06/2022 11:30 AM EDT) P athologist Signature Hemoglobin 8.7 (L) 13.7 - 16.5 [facility] g/dL [facility] Specimen Anatomical Collection Method Collection Time Receive d Time (Source) Location / / Volume Laterality Blood 02/06/2022 11:30 02/06/2022 AM EDT 11:36 AM EDT Resulting Agency Comment Spec In Lab Jeanette Escamilla APRN HEMATOLOGY ORDERABLES Performing Organization Address City/[facility]/[place] [address] (ABNORMAL) Sodium (02/06/2022 11:30 AM EDT) P athologist Signature Sodium 122 (L) 135 - 145 [facility] mmol/L [facility] Specimen Anatomical Collection Method Collection Time Receive d Time (Source) Location / / Volume Laterality Blood 02/06/2022 11:30 02/06/2022 AM EDT 11:36 AM EDT Resulting Agency Comment Spec In Lab Parrish Betancourt MD CHEMISTRY ORDERABLES Performing Organization Address City/State/ZIP Code Phon e Number [address] Prepare RBC (02/06/2022 10:35 AM EDT) P athologist Signature Dispensed? Yes [facility] LABORATORY Specimen Anatomical Collection Method Collection Time Receive d Time (Source) Location / / Volume Laterality Blood 02/06/2022 10:35 02/06/2022 AM EDT 10:32 AM EDT Jeanette Escamilla APRN BLOOD BANK ORDERABLES Performing Organization Address City/State/[place] [address] Fibrinogen (02/06/2022 9:35 AM EDT) P athologist Signature Fibrinogen 279 200 - 393 [facility] mg/dL [facility]ORY Comment: A fibrinogen level >100 mg/dL is adequat e for hemostasis in most patients without underlying bleeding disorders. Specimen Anatomical Collection Method Collection Time Receive d Time (Source) Location / / Volume Laterality Blood 02/06/2022 9:35 AM 9:44 EDT AM EDT Resulting Agency Comment Spec In Lab Jeanette Escamilla APRN HEMATOLOGY ORDERABLES Performing Organization Address City/[facility]/[place] [address] Prothrombin Time (02/06/2022 9:35 AM EDT) P athologist Signature PT 11.4 9.4 - 12.5 [facility] LABORATORY INR 1.0 [facility] LABORATORY Comment: An INR <2.0 [...] Agency Comment Spec In Lab Jeanette Escamilla BALL MILL OPERATOR HEMATOLOGY ORDERABLES Performing Organization Address City/State/[place] [address] Platelet count (02/06/2022 9:35 AM EDT) athologist Signature Platelets 174 145 - 357 [facility] x10(3)/[facility] LABORATORY Plat Immature 4.6 0.0 - 7.4 [facility] % % [facility]ORATORY Comment: Limitation of the Immature Platelet Frac tion (IPF)-May be less reliable when the platelet count is less than 68f185/u L due to statistical imprecision. The IPF [...] in a decreased state of production. References: [employer] The Clinical Value of the Immature Platelet Fraction (IPF) in Cell Recovery Document Number [id number] 12/2010 [employer] The Role of the Imm ature Platelet Fraction (IPF) in the Differential Diagnosis of Thrombocytopen ia, Document [id number] V05 P0514 Specimen Anatomical Collection Method Collection Time Receive d Time (Source) Location / / Volume Laterality Blood 02/06/2022 9:35 AM 9:44 EDT AM EDT Resulting Agency Comment Spec In Lab Jeanette Escamilla BALL MILL OPERATOR HEMATOLOGY ORDERABLES Performing Organization Address City/State/[place] [address] (ABNORMAL) Hematocrit (02/06/2022 9:35 AM EDT) athologist Signature Hematocrit 25.9 (L) 40.5 [facility] 48.5 % [facility]OR[facility]ORY Specimen Anatomical Collection Method Collection Time Receive d Time (Source) Location / / Volume Laterality Blood 02/06/2022 9:35 AM 9:44 EDT AM EDT Resulting Agency Comment Spec In Lab Jeanette Escamilla APRN HEMATOLOGY ORDERABLES Performing Organization Address City/[facility] [place] [address] (ABNORMAL) Hemoglobin (02/06/2022 9:35 AM EDT) P athologist Signature Hemoglobin 9.0 (L) 13.7 - 16.5 [facility] g/dL [facility] LABOR[facility]ORY Specimen Anatomical Collection Method Collection Time Receive d Time (Source) Location / / Volume Laterality Blood 02/06/2022 9:35 AM 9:44 EDT AM EDT Resulting Agency Comment Spec In Lab Jeanette Escamilla APRN HEMATOLOGY ORDERABLES Performing Organization Address City/[facility] [place] [address] Transfuse RBC (02/06/2022 9:29 [...] Signature pH Art 7.46 (H) 7.35 - [facility] 7.45 [facility] LABORATORY pCO2 Art 31 (L) 35 - 45 [facility] mmHg [facility]ATORY pO2 Art 89 85 - 104 [facility] mmHg [facility] LABORATORY HCO3 Art 21.5 20.0 - [facility] 26.0 [facility] mmol/L HOSPITAL LABORATORY BE Art -2.3 -3.0 - 3.0 [facility] mmol/L [facility] LABORATORY Hgb Blood Gas 9.5 (L) 13.7 - [facility] 16.5 g/dL [facility] O2HB Art 95.5 94.0 - [facility] 97.0 % [facility] LAB[facility]ORY COHB Art 0.3 % [facility] Comment: Nonsmokers: 0.5-1.5% COHB Smokers: Variable, but usually less than 10% Toxic: 20-30% COHB Lethal: Greater than 60% COHB METHB Art 0.8 <=1.5 % [facility] LABORATORY Na Whole Blood 115 (Critical) 135 - 145 mmol/L [facility] Comment: Noted by supervisor instrument maintenance. K Whole Blood 5.7 (H) 3.5 - 5.0 mmol/L [facility] Comment: Please note: Patients with WBC >100,000 may have falsely elevated Potassium levels. Contact the Clinical Chemistry L aboratory if there are any questions. ICa Whole Blood 0.93 (L) 1.15 - 1.33 mmol/L [facility] Comment: Note: ??Total bilirubin higher than 20 m g/dL may lead to falsely low ionized calcium. CL Whole Blood 92 (L) 98 - 107 mmol/L [facility] LABORATORY Gluc Whole Bld 138 65 - 199 mg/dL [facility] LAB[facility] Comment: Diabetes: >=200 mg/dL plus symp toms. Lactate WB 1.7 0.5 - 2.2 mmol/L [facility] LABORATORY FIO2 Art 21 % [facility]OR[facility] PF Ratio Art 424 [facility] LABORATORY Specimen Anatomical Collection Method Collection Time Receive d Time (Source) Location / / Volume Laterality Blood 02/06/2022 9:06 AM 9:06 EDT AM EDT Dunia Han DO CHEMISTRY ORDERABLES Performing Organization Address City/State/[place] [address] (ABNORMAL) Phosphorus (02/06/2022 9:00 AM EDT) P athologist Signature Phosphorus 7.1 (H) 2.5 - 4.5 [facility] [place] mg/dL [facility] LABORATORY Specimen Anatomical Collection Method Collection Time Receive d Time (Source) Location / / Volume Laterality Blood 02/06/2022 9:00 AM 2 9:04 EDT AM EDT Resulting Agency Comment Spec In Lab Angelina Reynoso MD CHEMISTRY ORDERABLES Performing Organization Address City/State/ZIP Code Phon e Number [address] Magnesium (02/06/2022 9:00 AM EDT) P athologist Signature Magnesium 0.99 0.69 - 1.07 [facility] mmol/L [facility] LABORATORY Specimen Anatomical Collection Method Collection Time Receive d Time (Source) Location / / Volume Laterality Blood 02/06/2022 9:00 AM 2 9:04 EDT AM EDT Resulting Agency Comment Spec In Lab Angelina Reynoso MD CHEMISTRY ORDERABLES Performing Organization Address City/[facility]/[place] [address] (ABNORMAL) Creatinine (02/06/2022 9:00 AM EDT) Analysis Performed At Patho logist Time Signature Creatinine 4.64 (H) 0.80 - [facility] [place] 1.50 mg/dL [facility] LABORATORY Estimated GFR 16 (L) >=60 [facility] [place] mL/min/1.7 [facility] 3 ?? [facility] Comment: This patient's estimated GFR was [...] Reynoso MD CHEMISTRY ORDERABLES Performing Organization Address City/[facility]/[place] [address] (ABNORMAL) BUN (02/06/2022 9:00 AM EDT) P athologist Signature BUN 44 (H) 10 - 20 [facility] Specimen Anatomical Collection Method Collection Time Receive d Time (Source) Location / / Volume Laterality Blood 02/06/2022 9:00 AM 2 9:04 EDT AM EDT Resulting Agency Comment Spec In Lab Angelina Reynoso MD CHEMISTRY ORDERABLES Performing Organization Address [facility] [place] [address] (ABNORMAL) Electrolytes panel (02/06/2022 9:00 AM EDT) P athologist Signature Sodium 123 (L) 135 - 145 [facility] mmol/L [facility] Potassium 6.0 (H) 3.5 - 5.0 [facility] mmol/L [facility] Comment: Please note: ??Patients with WBC >100,00 0 may have falsely elevated Potassium levels. ??For accurate Potassium quantif ication in these patients send serum separator tube (gold top) for subsequent determinations. ??Contact the Clinical Chemistry Laboratory if there are any qu estions. Chloride 91 (L) 98 - 107 mmol/L [facility] CO2 23 22 - 31 mmol/L [facility] Anion Gap 9 5 - 15 mmol/L [facility] Specimen Anatomical Collection Method Collection Time Receive d Time (Source) Location / / Volume Laterality Blood 02/06/2022 9:00 AM 2 9:04 EDT AM EDT Resulting Agency Comment Spec In Lab Angelina Reynoso MD CHEMISTRY ORDERABLES Performing Organization Address City/[facility]/[place] [address] Transfuse RBC (02/06/2022 8:38 AM EDT) Dunia Han DO NURSING TREATMENT ORDERAB LES - BLOOD ADMIN POCT Glucose (02/06/2022 7:47 AM EDT) P athologist Signature POC Glucose 149 65 - [address] [facility] mg/dL [facility] Comment: Supplemental ranges: <140 mg/dL before meals <180 mg/dL all other times of the day Specimen Anatomical Collection Method Collection Time Receive d Time (Source) Location / / Volume Laterality Blood 02/06/2022 7:47 AM 2 7:47 EDT AM EDT Dunia Han DO POINT OF CARE TEST ORDERA BLES Performing Organization Address City/[facility]/[place] [address] Prepare RBC (02/06/2022 7:40 AM EDT) P athologist Signature Dispensed? Yes [facility] Specimen Anatomical Collection Method Collection Time Receive d Time (Source) Location / / Volume Laterality Blood 02/06/2022 7:40 AM 2 7:37 EDT AM EDT Dunia Han DO BLOOD BANK ORDERABLES Performing Organization Address City/[facility]/[place] [address] (ABNORMAL) Basic Metabolic Panel (non-fasting) (02/06/2022 7:40 AM EDT) P athologist Signature Glucose Lvl 138 65 - 199 [facility] mg/dL [facility] Comment: Diabetes: >=200 mg/dL plus symp toms BUN 44 (H) 10 - 20 mg/dL [facility] Creatinine 4.52 (H) 0.80 - 1.50 mg/dL [facility] Sodium 123 (L) 135 - 145 mmol/L [facility] Potassium 5.4 (H) 3.5 - 5.0 mmol/L [facility] Comment: Please note: ??Patients with WBC >100,00 0 may have falsely elevated Potassium levels. ??For accurate Potassium quantif ication in these patients send serum separator tube (gold top) for subsequent determinations. ??Contact the Clinical Chemistry Laboratory if there are any qu estions. Chloride 91 (L) 98 - 107 mmol/L [facility] CO2 23 22 - 31 mmol/L [facility] Anion Gap 9 5 - 15 mmol/L [facility] Calcium 6.7 (Critical) 8.5 - 10.5 mg/dL [facility] Comment: Called by: BAM, Read back by: Alden Colindres, Date/Time:02/06/22 09:21. Estimated GFR 17 (L) >=60 mL/min/1.73 m?? [facility] Comment: This patient's estimated [...] Organization Address City/State/[place] [address] (ABNORMAL) BLOOD GAS 2 VENOUS (02/06/2022 6:19 AM EDT) athologist Signature pH Honorio 7.40 7.32 - [facility] 7.42 [facility] pCO2 Honorio 40 (L) 41 - 51 [facility] LABORATORY pO2 Honorio 31 25 - 40 [facility] LABORATORY HCO3 Honorio 24.2 mmol/L [facility] BE Honorio -0.5 mmol/L [facility] Hgb Blood Gas 8.2 (L) 13.7 - [facility] 16.5 g/dL [facility] O2HB Honorio 65.2 % [facility] COHB Honorio 1.0 % [facility] Comment: Nonsmokers: 0.5-1.5% COHB Smokers: Variable, but usually less than 10% Toxic: 20-30% COHB Lethal: Greater than 60% COHB METHB Honorio 0.9 <=1.5 % [facility]OR[facility] Na Whole Blood 117 (Critical) 135 - 145 mmol/L [facility] Comment: Noted by supervisor instrument maintenance. K Whole Blood 5.2 (H) 3.5 - 5.0 mmol/L [facility] Comment: Please note: Patients with WBC >100,000 may have falsely elevated Potassium levels. Contact the Clinical Chemistry L aboratory if there are any questions. ICa Whole Blood 0.96 (L) 1.15 - 1.33 mmol/L [facility] Comment: Note: ??Total bilirubin higher than 20 m g/dL may lead to falsely low ionized calcium. CL Whole Blood 91 (L) 98 - 107 mmol/L [facility] Gluc Whole Bld 113 65 - 199 mg/dL [facility] Comment: Diabetes: >=200 mg/dL plus symp toms Lactate WB 1.3 0.5 - 2.2 mmol/L [facility]OR[facility] BGas Source Venous [facility] Specimen Anatomical Collection Method Collection Time Receive d Time (Source) Location / / Volume Laterality Blood 02/06/2022 6:19 AM 6:19 EDT AM EDT Dunia Han DO CHEMISTRY ORDERABLES Performing Organization Address City/State/ZIP Code Phon e Number [address] Fibrinogen (02/06/2022 6:16 AM EDT) athologist Signature Fibrinogen 294 200 - 393 [facility] mg/dL [facility] Comment: A fibrinogen level >100 mg/dL is adequat e for hemostasis in most patients without underlying bleeding disorders. Specimen Anatomical Collection Method Collection Time Receive d Time (Source) Location / / Volume Laterality Blood 02/06/2022 6:16 AM 2 6:20 EDT AM EDT Resulting Agency Comment Spec In Lab Danielle Ramirez MD HEMATOLOGY ORDERABLES Performing Organization Address City/[facility]/ZIP Code Phon e Number [address] Prothrombin Time (02/06/2022 6:16 AM EDT) athologist Signature PT 11.6 9.4 - 12.5 [facility] LABORATORY INR 1.0 [facility] Comment: An INR <2.0 [...] Ramirez MD HEMATOLOGY ORDERABLES Performing Organization Address City/[facility]/[place] [address] Platelet count (02/06/2022 6:16 AM EDT) athologist Signature Platelets 185 145 - 357 [facility] x10(3)/[facility] LABORATORY Plat Immature 2.7 0.0 - 7.4 [facility] % % [facility] Comment: Limitation of the Immature Platelet Frac tion (IPF)-May be less reliable when the platelet count is less than 71e637/u L due to statistical imprecision. The IPF [...] in a decreased state of production. References: [employer] The Clinical Value of the Immature Platelet Fraction (IPF) in Cell Recovery Document Number [id number] 12/2010 [employer] The Role of the Imm ature Platelet Fraction (IPF) in the Differential Diagnosis of Thrombocytopen ia, Document [id number] V05 P012/12 Specimen Anatomical Collection Method Collection Time Receive d Time (Source) Location / / Volume Laterality Blood 02/06/2022 6:16 AM 2 6:20 EDT AM EDT Resulting Agency Comment Spec In Lab Danielle Ramirez MD HEMATOLOGY ORDERABLES Performing Organization Address City/[facility]/[place] [address] (ABNORMAL) Hematocrit (02/06/2022 6:16 AM EDT) P athologist Signature Hematocrit 20.5 (L) 40.5 - [facility] 48.5 % [facility] Specimen Anatomical Collection Method Collection Time Receive d Time (Source) Location / / Volume Laterality Blood 02/06/2022 6:16 AM 2 6:20 EDT AM EDT Resulting Agency Comment Spec In Lab Danielle Ramirez MD HEMATOLOGY ORDERABLES Performing Organization Address City/[facility]/[place] [address] (ABNORMAL) Hemoglobin (02/06/2022 6:16 AM EDT) P athologist Signature Hemoglobin 7.5 (L) 13.7 - 16.5 [facility] g/dL [facility] Specimen Anatomical Collection Method Collection Time Receive d Time (Source) Location / / Volume Laterality Blood 02/06/2022 6:16 AM 6:20 EDT AM EDT Resulting Agency Comment Spec In Lab Danielle Ramirez MD HEMATOLOGY ORDERABLES Performing Organization Address City/State/[place] [address] (ABNORMAL) BLOOD GAS 2 ARTERIAL (02/06/2022 6:14 AM EDT) Analysis Performed At Patho logist Time Signature pH Art 7.47 (H) 7.35 - [facility] 7.45 [facility] pCO2 Art 33 (L) 35 - 45 [facility] mmHg [facility] pO2 Art 83 (L) 85 - 104 [facility] LABORATORY HCO3 Art 23.3 20.0 - [facility] 26.0 [facility] mmol/[facility] LABORATORY BE Art -0.3 -3.0 - 3.0 [facility] mmol/L [facility] Hgb Blood Gas 8.4 (L) 13.7 - [facility] 16.5 g/dL [facility] O2HB Art 94.3 94.0 - [facility] 97.0 % [facility] COHB Art 0.3 % [facility] Comment: Nonsmokers: 0.5-1.5% COHB Smokers: Variable, but usually less than 10% Toxic: 20-30% COHB Lethal: Greater than 60% COHB METHB Art 1.0 <=1.5 % [facility]OR[facility] Na Whole Blood 117 (Critical) 135 - 145 mmol/L [facility] Comment: Noted by supervisor instrument maintenance. K Whole Blood 5.3 (H) 3.5 - 5.0 mmol/L [facility] Comment: Please note: Patients with WBC >100,000 may have falsely elevated Potassium levels. Contact the Clinical Chemistry L aboratory if there are any questions. ICa Whole Blood 0.96 (L) 1.15 - 1.33 mmol/L [facility] Comment: Note: ??Total bilirubin higher than 20 m g/dL may lead to falsely low ionized calcium. CL Whole Blood 91 (L) 98 - 107 mmol/L [facility] Gluc Whole Bld 117 65 - 199 mg/dL [facility] Comment: Diabetes: >=200 mg/dL plus symp toms. Lactate WB 1.3 0.5 - 2.2 mmol/L [facility] FIO2 Art 21 % [facility] PF Ratio Art 395 [facility] LABORATORY Specimen Anatomical Collection Method Collection Time Receive d Time (Source) Location / / Volume Laterality Blood 02/06/2022 6:14 AM 2 6:14 EDT AM EDT Dunia Han DO CHEMISTRY ORDERABLES Performing Organization Address City/[facility]/ZIP Code Phon e Number [address] Transfuse RBC (02/06/2022 6:01 AM EDT) Dunia Pat A Atchinson DO NURSING TREATMENT ORDERAB LES - BLOOD ADMIN Transfuse RBC (02/06/2022 6:01 AM EDT) Dunia Pat A Atchinson DO NURSING TREATMENT ORDERAB LES - BLOOD ADMIN Blood culture (02/06/2022 6:00 AM EDT) [facility] gist Method Time Signature Blood Culture No growth [facility] at 5 days. [facility]OR[facility]ORY Specimen Anatomical Collection Method Collection Time Receive d Time (Source) Location / / Volume Laterality Blood 02/06/2022 6:00 AM 2 7:28 EDT AM EDT Resulting Agency Comment Spec In Lab Dunia Pat A Atchinson DO MICROBIOLOGY - BLOOD ORDE RABLES Performing Organization Address City/[facility]/ZIP Code Phon e Number [address] Insert Arterial Line (02/06/2022 [...] p lanned procedure. ?? Hand Hygiene: The senior regulatory affairs specialist did perform h and hygiene prior [...] 4:20 AM EDT) athologist Signature Dispensed? Yes [facility]OR[facility]ORY Specimen Anatomical Collection Method Collection Time Receive d Time (Source) Location / / Volume Laterality Blood 02/06/2022 4:20 AM 2 4:20 EDT AM EDT Dunia Han DO BLOOD BANK ORDERABLES Performing Organization Address City/State/[place] [address] Scan, Peripheral Blood (02/06/2022 3:48 AM EDT) [facility] gist Method Time Signature Plat Estimate Normal [facility] RBC Morphology Abnormal [facility] Ovalocytes 1-5 /HPF [facility] Angel Cells 1-5 /HPF [facility] Specimen Anatomical Collection Method Collection Time Receive d Time (Source) Location / / Volume Laterality Blood 02/06/2022 3:48 AM 3:51 EDT AM EDT Resulting Agency Comment Spec In Lab Danielle Ramirez MD HEMATOLOGY ORDERABLES Performing Organization Address City/State/[place] [address] (ABNORMAL) Differential, Automated (02/06/2022 3:48 AM EDT) [facility] Method Time Signature Neutrophils % 56.0 % [facility] Neutr Abs (ANC) 10.94 (H) 1.70 - [facility] 6.10 [facility] x10(3)/[facility] LABORATORY Lymphocytes % 11.6 % [facility]ORY Lymphocytes Abs 2.3 0.9 - 3.2 [facility] x10(3)/[facility] LABORATORY Monocytes % 15.0 % [facility]ORY Monocyte Abs 2.9 (H) 0.3 - 0.9 [facility] x10(3)/[facility] LABORATORY Eosinophils % 1.0 % [facility]ORY Eosinophils Abs 0.2 0.0 - 0.4 [facility] x10(3)/[facility] LABORATORY Basophils % 0.6 % [facility]OR[facility]ORY Basophils Abs 0.1 0.0 - 0.1 [facility] x10(3)/[facility] LABORATORY Immature Gran % 15.80 % [facility] Comment: Immature granulocytes(IG's)percentage an d absolute count will include metamyelocytes, myelocytes, and promyelo cytes. Blood smears from CBCs yielding IG's will be scanned manually for concor dance. If this scan disagrees with the automated IG or if promyelocytes are not ed, a manual differential will be performed. Gemini Gran Abs 3.09 (H) 0.00 - 0.04 x10(3)/[facility] LABORATORY Specimen Anatomical Collection Method Collection Time Receive d Time (Source) Location / / Volume Laterality Blood 02/06/2022 3:48 AM 2 3:51 EDT AM EDT Resulting Agency Comment Spec In Lab Danielle Ramirez MD HEMATOLOGY ORDERABLES Performing Organization Address City/State/[place] [address] (ABNORMAL) Hemogram (02/06/2022 3:48 AM EDT) [facility] gist Method Time Signature WBC 19.5 (H) 4.0 - 9.5 [facility] x10(3)/[facility] LABORATORY RBC 2.27 (L) 4.58 [facility] 5.54 [facility] x10(6)/[facility] LABORATORY Hemoglobin 6.9 (L) 13.7 [facility] 16.5 g/dL [facility]ORY Hematocrit 19.2 (L) 40.5 - [facility] 48.5 % [facility]ORY MCV 84.6 82.9 - [facility] 93.1 [facility] LABORATORY MCH 30.4 27.5 [facility] 32.1 pg [facility]ATORY MCHC 35.9 (H) 32.0 - [facility] 35.7 g/dL [facility] Platelets 147 145 - 357 [facility] x10(3)/[facility] LABORATORY RDWSD 45.8 (H) 36.0 - [facility] 45.0 [facility] LABORATORY RDWCV 15.1 (H) 11.4 - [facility] 13.8 % [facility] LABORATORY MPV 9.4 7.6 - 12.9 [facility] LABORATORY nRBC % Auto 0.4 % [facility]ORATORY nRBC Abs Auto 0.080 (H) 0.000 - [facility] 0.000 [facility] x10(3)/[facility] LABORATORY Specimen Anatomical Collection Method Collection Time Receive d Time (Source) Location / / Volume Laterality Blood 02/06/2022 3:48 AM 2 3:51 EDT AM EDT Resulting Agency Comment Spec In Lab Danielle Ramirez MD HEMATOLOGY ORDERABLES Performing Organization Address City/State/[place] [address] (ABNORMAL) BLOOD GAS 2 ARTERIAL (02/06/2022 3:48 AM EDT) P athologist Signature pH Art 7.42 7.35 - [facility] 7.45 [facility]ORATORY pCO2 Art 40 35 - 45 [facility] mmHg [facility]ORY pO2 Art 36 85 - 104 [facility] (Critical) [facility] LABORATORY Comment: Noted by supervisor instrument maintenance. HCO3 Art 25.7 20.0 - 26.0 mmol/L [facility] BE Art 1.3 -3.0 - 3.0 mmol/L [facility] LABORATORY Hgb Blood Gas 7.9 (L) 13.7 - 16.5 g/dL [facility] LABORATORY O2HB Art 73.5 (L) 94.0 - 97.0 % [facility] LABORATORY COHB Art 0.5 % [facility]ORATORY Comment: Nonsmokers: 0.5-1.5% COHB Smokers: Variable, but usually less than 10% Toxic: 20-30% COHB Lethal: Greater than 60% COHB METHB Art 1.2 <=1.5 % [facility]ORATORY Na Whole Blood 118 (Critical) 135 - 145 mmol/L [facility] Comment: Noted by supervisor instrument maintenance. K Whole Blood 5.2 (H) 3.5 - 5.0 mmol/L [facility]ORY Comment: Please note: Patients with WBC >100,000 may have falsely elevated Potassium levels. Contact the Clinical Chemistry L aboratory if there are any questions. ICa Whole Blood 0.93 (L) 1.15 - 1.33 mmol/L [facility] Comment: Note: ??Total bilirubin higher than 20 m g/dL may lead to falsely low ionized calcium. CL Whole Blood 92 (L) 98 - 107 mmol/L [facility]ORATORY Gluc Whole Bld 122 65 - 199 mg/dL [facility]ORATORY Comment: Diabetes: >=200 mg/dL plus symp toms. Lactate WB 1.8 0.5 - 2.2 mmol/L [facility] LABORATORY Temp Art 37.0 Celsius [facility] LABORATORY Specimen Anatomical Collection Method Collection Time Receive d Time (Source) Location / / Volume Laterality Blood 02/06/2022 3:48 AM 2 3:48 EDT AM EDT Dunia Han DO CHEMISTRY ORDERABLES Performing Organization Address City/[facility]/[place] [address] Prepare RBC (02/06/2022 1:20 AM EDT) P athologist Signature Dispensed? Yes [facility]ORATORY Specimen Anatomical Collection Method Collection Time Receive d Time (Source) Location / / Volume Laterality Blood 02/06/2022 1:20 AM 2 1:18 EDT AM EDT Dunia Han DO BLOOD BANK ORDERABLES Performing Organization Address City/[facility]/[place] [address] Fibrinogen (02/06/2022 12:50 AM EDT) P athologist Signature Fibrinogen 298 200 - 393 [facility] mg/dL [facility]ORATORY Comment: A fibrinogen level >100 mg/dL is adequat e for hemostasis in most patients without underlying bleeding disorders. Specimen Anatomical Collection Method Collection Time Receive d Time (Source) Location / / Volume Laterality Blood 02/06/2022 12:50 02/06/2022 1:04 AM EDT AM EDT Resulting Agency Comment Spec In Lab Danielle Ramirez MD HEMATOLOGY ORDERABLES Performing Organization Address City/[facility]/[place] [address] (ABNORMAL) Prothrombin Time (02/06/2022 12:50 AM EDT) P athologist Signature PT 14.6 (H) 9.4 - 12.5 [facility] sec [facility] LABORATORY INR 1.3 [facility] Comment: An INR <2.0 [...] Organization Address City/State/[place] [address] Platelet count (02/06/2022 12:50 AM EDT) P athologist Signature Platelets 202 145 - 357 [facility] x10(3)/[facility] LABORATORY Plat Immature 3.3 0.0 - 7.4 [facility] % % [facility]ATORY Comment: Limitation of the Immature Platelet Frac tion (IPF)-May be less reliable when the platelet count is less than 84f363/u L due to statistical imprecision. The IPF [...] in a decreased state of production. References: [employer] The Clinical Value of the Immature Platelet Fraction (IPF) in Cell Recovery Document Number [id number] 12/2010 [employer] The Role of the Imm ature Platelet Fraction (IPF) in the Differential Diagnosis of Thrombocytopen ia, Document [id number] V05/07/14 P0514 Specimen Anatomical Collection Method Collection Time Receive d Time (Source) Location / / Volume Laterality Blood 02/06/2022 12:50 02/06/2022 1:04 AM EDT AM EDT Resulting Agency Comment Spec In Lab Danielle Ramirez MD HEMATOLOGY ORDERABLES Performing Organization Address City/[facility]/ZIP Code Phon e Number [address] (ABNORMAL) Hematocrit (02/06/2022 12:50 AM EDT) athologist Signature Hematocrit 13.3 (L) 40.5 [facility] 48.5 % [facility]OR[facility]ORY Specimen Anatomical Collection Method Collection Time Receive d Time (Source) Location / / Volume Laterality Blood 02/06/2022 12:50 02/06/2022 1:04 AM EDT AM EDT Resulting Agency Comment Spec In Lab Danielle Ramirez MD HEMATOLOGY ORDERABLES Performing Organization Address City/[facility]/[place] [address] (ABNORMAL) Hemoglobin (02/06/2022 12:50 AM EDT) athologist Signature Hemoglobin 4.8 13.7 - [facility] (Critical) 16.5 g/dL [facility] Comment: This result has [...] Ramirez MD HEMATOLOGY ORDERABLES Performing Organization Address City/[facility]/[place] [address] (ABNORMAL) Basic Metabolic Panel (non-fasting) (02/06/2022 12:50 AM EDT) athologist Signature Glucose Lvl 177 65 - 199 [facility] mg/dL [facility] Comment: Diabetes: >=200 mg/dL plus symp toms BUN 42 (H) 10 - 20 mg/dL [facility] LABORATORY Creatinine 4.29 (H) 0.80 - 1.50 mg/dL [facility] LABORATORY Sodium 124 (L) 135 - 145 mmol/L [facility] LABORATORY Potassium 5.3 (H) 3.5 - 5.0 mmol/L [facility] LABORATORY Comment: Please note: ??Patients with WBC >100,00 0 may have falsely elevated Potassium levels. ??For accurate Potassium quantif ication in these patients send serum separator tube (gold top) for subsequent determinations. ??Contact the Clinical Chemistry Laboratory if there are any qu estions. Chloride 89 (L) 98 - 107 mmol/L [facility] CO2 24 22 - 31 mmol/L [facility] Anion Gap 11 5 - 15 mmol/L [facility] Calcium 6.5 (Critical) 8.5 - 10.5 mg/dL [facility] Comment: called by bm/read back by bon anton 02/06/22 0147 Estimated GFR 18 (L) >=60 mL/min/1.73 m?? [facility] Comment: This patient's estimated [...] Han DO CHEMISTRY ORDERABLES Performing Organization Address City/[facility]/ZIP Code Phon e Number [address] (ABNORMAL) Phosphorus (02/06/2022 12:50 AM EDT) P athologist Signature Phosphorus 6.5 (H) 2.5 - 4.5 [facility] mg/dL [facility] Specimen Anatomical Collection Method Collection Time Receive d Time (Source) Location / / Volume Laterality Blood 02/06/2022 12:50 02/06/2022 1:04 AM EDT AM EDT Resulting Agency Comment Spec In Lab Gela Novak MD CHEMISTRY ORDERABLES Performing Organization Address City/[facility]/ZIP Code Phon e Number [address] Magnesium (02/06/2022 12:50 AM EDT) P athologist Signature Magnesium 0.88 0.69 - 1.07 [facility] mmol/L [facility] Specimen Anatomical Collection Method Collection Time Receive d Time (Source) Location / / Volume Laterality Blood 02/06/2022 12:50 02/06/2022 1:04 AM EDT AM EDT Resulting Agency Comment Spec In Lab Gela Novak MD CHEMISTRY ORDERABLES Performing Organization Address City/[facility]/[place] [address] Transfuse thawed plasma (02/06/2022 [...] plasma (02/05/2022 11:11 PM EDT) Dunia Gaines Emely DO NURSING TREATMENT ORDERAB LES - BLOOD ADMIN (ABNORMAL) BLOOD GAS 2 VENOUS (02/05/2022 10:39 PM EDT) athologist Signature pH Honorio 7.40 7.32 - [facility] 7.42 [facility] pCO2 Ohnorio 34 (L) 41 - 51 [facility] LABORATORY pO2 Honorio 28 25 - 40 [facility] LABORATORY HCO3 Honorio 20.4 mmol/L [facility] BE Honorio -4.5 mmol/L [facility] Hgb Blood Gas 8.7 (L) 13.7 - [facility] 16.5 g/dL [facility] O2HB Honorio 60.3 % [facility] COHB Honorio 0.8 % [facility] Comment: Nonsmokers: 0.5-1.5% COHB Smokers: Variable, but usually less than 10% Toxic: 20-30% COHB Lethal: Greater than 60% COHB METHB Honorio 0.3 <=1.5 % [facility] Na Whole Blood 119 (Critical) 135 - 145 mmol/L [facility] Comment: Noted by supervisor instrument maintenance. K Whole Blood 5.3 (H) 3.5 - 5.0 mmol/L [facility] Comment: Please note: Patients with WBC >100,000 may have falsely elevated Potassium levels. Contact the Clinical Chemistry L aboratory if there are any questions. ICa Whole Blood 0.95 (L) 1.15 - 1.33 mmol/L [facility] Comment: Note: ??Total bilirubin higher than 20 m g/dL may lead to falsely low ionized calcium. CL Whole Blood 93 (L) 98 - 107 mmol/L [facility] Gluc Whole Bld 163 65 - 199 mg/dL [facility] Comment: Diabetes: >=200 mg/dL plus symp toms Lactate WB 1.8 0.5 - 2.2 mmol/L [facility] BGas Source Venous [facility] Specimen Anatomical Collection Method Collection Time Receive d Time (Source) Location / / Volume Laterality Blood 02/05/2022 10:39 02/05/2022 PM EDT 10:39 PM EDT Dunia Han DO CHEMISTRY ORDERABLES Performing Organization Address City/State/[place] [address] Transfuse RBC (02/05/2022 10:34 PM EDT) Dilcia Lopez MD NURSING TREATMENT ORDERABLES - BLOOD ADMIN Transfuse RBC (02/05/2022 10:34 PM EDT) Dilcia Lopez MD NURSING TREATMENT ORDERABLES - BLOOD ADMIN (ABNORMAL) Hepatic Function Panel (02/05/2022 9:54 PM EDT) P athologist Signature Total Protein 3.2 (L) 6.1 - 8.0 [facility] g/dL [facility] Albumin 1.4 (L) 3.2 - 5.2 [facility] g/dL [facility] AST 21 0 - 39 [facility] unit/L [facility] ALT <5 0 - 55 J[facility] MADNO unit/L [facility] Alk Phos 74 40 - 130 [facility] unit/L [facility] Total 0.4 0.2 - 1.3 [facility] Bilirubin mg/dL [facility] Bili, Direct 0.3 0.0 - 0.3 [facility] mg/dL [facility] Specimen Anatomical Collection Method Collection Time Receive d Time (Source) Location / / Volume Laterality Blood 02/05/2022 9:54 PM EDT 10:31 PM EDT Resulting Agency Comment Spec In Lab Dunia Han DO CHEMISTRY ORDERABLES Performing Organization Address City/State/[place] [address] (ABNORMAL) Basic Metabolic Panel (non-fasting) (02/05/2022 9:54 PM EDT) P athologist Signature Glucose Lvl 161 65 - 199 [facility] MANDO mg/dL [facility] Comment: Diabetes: >=200 mg/dL plus symp toms BUN 41 (H) 10 - 20 mg/dL [facility] Creatinine 4.29 (H) 0.80 - 1.50 mg/dL [facility] Sodium 123 (L) 135 - 145 mmol/L [facility] Potassium 5.7 (H) 3.5 [...] Chloride 92 (L) 98 - 107 mmol/L [facility] CO2 23 22 - 31 mmol/L [facility] Anion Gap 8 5 - 15 mmol/L [facility] Calcium 6.2 (Critical) 8.5 - 10.5 mg/dL [facility] Comment: called by bm/read back by bon anton 02/05/22 [id number] Estimated GFR 18 (L) >=60 mL/min/1.73 m?? [facility] Comment: This patient's estimated [...] Organization Address City/State/ZIP Code Phon e Number [address] Transfuse RBC (02/05/2022 9:25 PM EDT) Dilcia Lopez MD NURSING TREATMENT ORDERABLES - BLOOD ADMIN Transfuse RBC (02/05/2022 9:25 PM EDT) Dilcia Lopez MD NURSING TREATMENT ORDERABLES - BLOOD ADMIN Prepare thawed plasma (02/05/2022 9:10 PM EDT) P athologist Signature Dispensed? Yes [facility] Specimen Anatomical Collection Method Collection Time Receive d Time (Source) Location / / Volume Laterality Blood 02/05/2022 9:10 PM 2 9:08 EDT PM EDT Dilcia Lopez MD BLOOD BANK ORDERABLES Performing Organization Address City/[facility]/[place] [address] Transfuse RBC (02/05/2022 8:58 PM EDT) Dilcia Lopez MD NURSING TREATMENT ORDERABLES - BLOOD ADMIN Transfuse RBC (02/05/2022 8:58 PM EDT) Dilcia Lopez MD NURSING TREATMENT ORDERABLES - BLOOD ADMIN Prepare RBC (02/05/2022 8:50 PM EDT) P athologist Signature Dispensed? Yes [facility] Specimen Anatomical Collection Method Collection Time Receive d Time (Source) Location / / Volume Laterality Blood 02/05/2022 8:50 PM 2 8:50 EDT PM EDT Dilcia Lopez MD BLOOD BANK ORDERABLES Performing Organization Address City/[facility]/ZIP Code Phon e Number [address] Prepare RBC (02/05/2022 8:40 PM EDT) P athologist Signature Dispensed? Yes [facility] Specimen Anatomical Collection Method Collection Time Receive d Time (Source) Location / / Volume Laterality Blood 02/05/2022 8:40 PM 2 8:38 EDT PM EDT Dilcia Lopez MD BLOOD BANK ORDERABLES Performing Organization Address City/[facility]/[place] [address] (ABNORMAL) Prothrombin Time (02/05/2022 8:35 PM EDT) athologist Signature PT 56.2 (H) 9.4 - 12.5 [facility] LABORATORY INR 4.9 [facility] Comment: An INR <2.0 [...] Lopez MD HEMATOLOGY ORDERABLES Performing Organization Address City/[facility]/[place] [address] Fibrinogen (02/05/2022 8:35 PM EDT) athologist Signature Fibrinogen 314 200 - 393 [facility] mg/dL [facility] Comment: A fibrinogen level >100 mg/dL is adequat e for hemostasis in most patients without underlying bleeding disorders. Specimen Anatomical Collection Method Collection Time Receive d Time (Source) Location / / Volume Laterality Blood 02/05/2022 8:35 PM 2 8:45 EDT PM EDT Resulting Agency Comment Spec In Lab Dilcia Lopez MD HEMATOLOGY ORDERABLES Performing Organization Address City/State/[place] [address] Prepare RBC (02/05/2022 7:55 PM EDT) P athologist Signature Dispensed? Yes [facility] Specimen Anatomical Collection Method Collection Time Receive d Time (Source) Location / / Volume Laterality Blood 02/05/2022 7:55 PM 7:53 EDT PM EDT Dilcia Lopez MD BLOOD BANK ORDERABLES Performing Organization Address City/State/[place] [address] (ABNORMAL) Differential, Automated (02/05/2022 7:50 PM EDT) Patholo gist Method Time Signature Neutrophils % 66.9 % [facility] Neutr Abs (ANC) 15.42 (H) 1.70 - [facility] 6.10 [facility] x10(3)/[facility] LABORATORY Lymphocytes % 9.1 % [facility] Lymphocytes Abs 2.1 0.9 - 3.2 [facility] x10(3)/[facility] LABORATORY Monocytes % 11.5 % [facility] Monocyte Abs 2.7 (H) 0.3 - 0.9 [facility] x10(3)/[facility] LABORATORY Eosinophils % 0.4 % [facility] Eosinophils Abs 0.1 0.0 - 0.4 [facility] x10(3)/[facility] LABORATORY Basophils % 0.3 % [facility] Basophils Abs 0.1 0.0 - 0.1 [facility] x10(3)/[facility] LABORATORY Immature Gran % 11.80 % [facility] Comment: Immature granulocytes(IG's)percentage an d absolute count will include metamyelocytes, myelocytes, and promyelo cytes. Blood smears from CBCs yielding IG's will be scanned manually for concor dance. If this scan disagrees with the automated IG or if promyelocytes are not ed, a manual differential will be performed. Gemini Gran Abs 2.73 (H) 0.00 - 0.04 x10(3)/[facility] LABORATORY Specimen Anatomical Collection Method Collection Time Receive d Time (Source) Location / / Volume Laterality Blood 02/05/2022 7:50 PM 8:09 EDT PM EDT Resulting Agency Comment Spec In Lab Dilcia Lopez MD HEMATOLOGY ORDERABLES Performing Organization Address City/State/[place] [address] (ABNORMAL) Hemogram (02/05/2022 7:50 PM EDT) athologist Signature WBC 23.1 (H) 4.0 - 9.5 [facility] x10(3)/[facility] LABORATORY RBC 1.62 (L) 4.58 - [facility] 5.54 [facility] x10(6)/[facility] LABORATORY Hemoglobin 4.9 13.7 - [facility] (Critical) 16.5 g/dL [facility] Comment: This result has been called to SHAHEEN GARZA by Graciela Sherman on 02 05 2022 at 2034, and has been read back. Hematocrit 13.7 (L) 40.5 - 48.5 % [facility] MCV 84.6 82.9 - 93.1 fL [facility] Comment: This result has been called to SHAHEEN GARZA by Graciela Sherman on 02 05 2022 at 2034, and has been read back. MCH 30.2 27.5 - 32.1 pg [facility] MCHC 35.8 (H) 32.0 - 35.7 g/dL [facility] Platelets 266 145 - 357 x10(3)/[facility] LABORATORY RDWSD 46.3 (H) 36.0 - 45.0 [facility] LABORATORY RDWCV 15.8 (H) 11.4 - 13.8 % [facility] MPV 10.2 7.6 - 12.9 [facility] LABORATORY nRBC % Auto 0.1 % [facility] nRBC Abs Auto 0.030 (H) 0.000 - 0.000 x10(3)/[facility] LABORATORY Specimen Anatomical Collection Method Collection Time Receive d Time (Source) Location / / Volume Laterality Blood 02/05/2022 7:50 PM 2 8:09 EDT PM EDT Resulting Agency Comment Spec In Lab Dilcia Lopez MD HEMATOLOGY ORDERABLES Performing Organization Address City/[facility]/[place] [address] Blood culture (02/05/2022 6:41 PM EDT) [facility] gist Method Time Signature Blood Culture No growth JOSH GILMORE at 5 days. [facility] Specimen Anatomical Collection Method Collection Time Receive d Time (Source) Location / / Volume Laterality Blood 02/05/2022 6:41 PM 2 8:46 EDT PM EDT Comment: R FA Resulting Agency Comment Spec In Lab Dilcia Lopez MD MICROBIOLOGY - BLOOD ORDERAB LES Performing Organization Address City/[facility]/[place] [address] (ABNORMAL) Hemoglobin (02/05/2022 5:20 PM EDT) P athologist Signature Hemoglobin 7.1 (L) 13.7 - 16.5 [facility] Specimen Anatomical Collection Method Collection Time Receive d Time (Source) Location / / Volume Laterality Blood 02/05/2022 5:20 PM 2 5:30 EDT PM EDT Resulting Agency Comment Spec In Lab Dilcia Lopez MD HEMATOLOGY ORDERABLES Performing Organization Address City/[facility]/[place] [address] Prepare RBC (02/05/2022 2:20 PM EDT) P athologist Signature Dispensed? Yes [facility] Specimen Anatomical Collection Method Collection Time Receive d Time (Source) Location / / Volume Laterality Blood 02/05/2022 2:20 PM 2 2:16 EDT PM EDT Tom Valdovinos MD BLOOD BANK ORDERABLES Performing Organization Address City/State/[place] [address] (ABNORMAL) Hemoglobin (02/05/2022 9:30 AM EDT) P athologist Signature Hemoglobin 7.0 (L) 13.7 - 16.[address] [facility] [address] g/dL [facility] Specimen Anatomical Collection Method Collection Time Receive d Time (Source) Location / / Volume Laterality Blood 02/05/2022 9:30 AM 9:39 EDT AM EDT Resulting Agency Comment Spec In Lab Dilcia Lopez MD HEMATOLOGY ORDERABLES Performing Organization Address City/State/ZIP Code Phon e Number [address] Transfuse RBC (02/05/2022 6:54 AM EDT) Coty Walotn MD NURSING TREATMENT ORDERABLES - BLOOD ADMIN Transfuse RBC (02/05/2022 6:54 AM EDT) Coty Walton MD NURSING TREATMENT ORDERABLES - BLOOD ADMIN Transfuse RBC (02/05/2022 5:07 AM EDT) Coty Walton MD NURSING TREATMENT ORDERABLES - BLOOD ADMIN Prepare RBC (02/05/2022 2:35 AM EDT) athologist Signature Dispensed? Yes [facility] Specimen Anatomical Collection Method Collection Time Receive d Time (Source) Location / / Volume Laterality Blood 02/05/2022 2:35 AM 2:34 EDT AM EDT Coty Walton MD BLOOD BANK ORDERABLES Performing Organization Address City/State/ZIP Code Phon e Number [address] Type and Screen Validity (02/05/2022 1:50 AM EDT) [facility] Method Time Signature T&S only valid [facility] at [facility] Comment: This Type and Screen result is only valid at the [facility] Specimen Anatomical Collection Method Collection Time Receive d Time (Source) Location / / Volume Laterality Blood 02/05/2022 1:50 AM 2 2:08 EDT AM EDT Resulting Agency Comment Spec In Lab Coty Walton MD BLOOD BANK ORDERABLES Performing Organization Address City/[facility]/[place] [address] ABORH Recheck Status (02/05/2022 1:50 AM EDT) [facility] Method Time Signature ABORH Type Completed [facility] LABORATORY Specimen Anatomical Collection Method Collection Time Receive d Time (Source) Location / / Volume Laterality Blood 02/05/2022 1:50 AM 2 2:08 EDT AM EDT Resulting Agency Comment Spec In Lab Coty Walton MD BLOOD BANK ORDERABLES Performing Organization Address City/[facility]/[place] [address] Antibody screen (02/05/2022 1:50 AM EDT) [facility] Method Time Signature Ab Screen Negative [facility] LABORATORY Expires at 02/08/2022 [facility] 4169 on: [facility] Specimen Anatomical Collection Method Collection Time Receive d Time (Source) Location / / Volume Laterality Blood 02/05/2022 1:50 AM 2 2:08 EDT AM EDT Resulting Agency Comment Spec In Lab Coty Walton MD BLOOD BANK ORDERABLES Performing Organization Address City/[facility]/[place] [address] ABO/Rh Typing (02/05/2022 1:50 AM EDT) P athologist Signature ABORh Type A Pos [facility] Specimen Anatomical Collection Method Collection Time Receive d Time (Source) Location / / Volume Laterality Blood 02/05/2022 1:50 AM 2 2:08 EDT AM EDT Resulting Agency Comment Spec In Lab Coty Walton MD BLOOD BANK ORDERABLES Performing Organization Address City/[facility]/[place] [address] (ABNORMAL) Differential, Automated (02/05/2022 12:56 AM EDT) [facility] Method Time Signature Neutrophils % 71.9 % [facility] Neutr Abs (ANC) 21.60 (H) 1.70 - [facility] 6.10 [facility] x10(3)/[facility] LABORATORY Lymphocytes % 8.3 % [facility] Lymphocytes Abs 2.5 0.9 - 3.2 [facility] x10(3)/[facility] LABORATORY Monocytes % 8.8 % [facility] Monocyte Abs 2.6 (H) 0.3 - 0.9 [facility] x10(3)/[facility] LABORATORY Eosinophils % 0.4 % [facility] Eosinophils Abs 0.1 0.0 - 0.4 [facility] x10(3)/[facility] LABORATORY Basophils % 0.3 % [facility] Basophils Abs 0.1 0.0 - 0.1 [facility] x10(3)/[facility] LABORATORY Immature Gran % 10.30 % [facility] Comment: Immature granulocytes(IG's)percentage an d absolute count will include metamyelocytes, myelocytes, and promyelo cytes. Blood smears from CBCs yielding IG's will be scanned manually for concor dance. If this scan disagrees with the automated IG or if promyelocytes are not ed, a manual differential will be performed. Gemini Gran Abs 3.11 (H) 0.00 - 0.04 x10(3)/[facility] LABORATORY Specimen Anatomical Collection Method Collection Time Receive d Time (Source) Location / / Volume Laterality Blood 02/05/2022 12:56 02/05/2022 1:20 AM EDT AM EDT Resulting Agency Comment Spec In Lab Dilcia Lopez MD HEMATOLOGY ORDERABLES Performing Organization Address City/State/[place] [address] (ABNORMAL) Hemogram (02/05/2022 12:56 AM EDT) P athologist Signature WBC 30.1 4.0 - 9.5 [facility] (Critical) x10(3)/[facility] LABORATORY Comment: This result has been called to WILLIE PAYNE by GAMA THOMPSON on 02 05 2022 at 0137, and has been read back. RBC 1.61 (L) 4.58 - 5.54 x10(6)/[facility] LABORATORY Hemoglobin 5.2 (Critical) 13.7 - 16.5 g/dL [facility] Comment: This result has been called to WILLIE PAYNE by GAMA THOMPSON on 02 05 2022 at 0137, and has been read back. Hematocrit 14.8 (L) 40.5 - 48.5 % [facility] MCV 91.9 82.9 - 93.1 [facility] LABORATORY MCH 32.3 (H) 27.5 - 32.1 pg [facility] MCHC 35.1 32.0 - 35.7 g/dL [facility] LABORATORY Platelets 363 (H) 145 - 357 x10(3)/[facility] LABORATORY RDWSD 47.0 (H) 36.0 - 45.0 [facility] LABORATORY RDWCV 14.8 (H) 11.4 - 13.8 % [facility] LABORATORY MPV 10.3 7.6 - 12.9 [facility] LABORATORY nRBC % Auto 0.1 % [facility]ORY nRBC Abs Auto 0.020 (H) 0.000 - 0.000 x10(3)/[facility] LABORATORY Specimen Anatomical Collection Method Collection Time Receive d Time (Source) Location / / Volume Laterality Blood 02/05/2022 12:56 02/05/2022 1:20 AM EDT AM EDT Resulting Agency Comment Spec In Lab Dilcia Lopez MD HEMATOLOGY ORDERABLES Performing Organization Address City/State/[place] [address] (ABNORMAL) Basic Metabolic Panel (non-fasting) (02/05/2022 12:56 AM EDT) P athologist Signature Glucose Lvl 125 65 - 199 [facility] mg/dL [facility] Comment: Diabetes: >=200 mg/dL plus symp toms BUN 49 (H) 10 - 20 mg/dL [facility] Creatinine 4.98 (H) 0.80 - 1.50 mg/dL [facility] Sodium 122 (L) 135 - 145 mmol/L [facility] Potassium 5.9 (H) 3.5 - 5.0 mmol/L [facility] Comment: Please note: ??Patients with WBC >100,00 0 may have falsely elevated Potassium levels. ??For accurate Potassium quantif ication in these patients send serum separator tube (gold top) for subsequent determinations. ??Contact the Clinical Chemistry Laboratory if there are any qu estions. Chloride 90 (L) 98 - 107 mmol/L [facility] CO2 24 22 - 31 mmol/L [facility] Anion Gap 8 5 - 15 mmol/L [facility] Calcium 6.4 (Critical) 8.5 - 10.5 mg/dL [facility] Comment: Called by: wesley, Read back by: Jesus Whittaker, Date/Time:02/05/22 02:07. Estimated GFR 15 (L) >=60 mL/min/1.73 m?? [facility] Comment: This patient's estimated [...] Han DO CHEMISTRY ORDERABLES Performing Organization Address City/[facility]/[place] [address] (ABNORMAL) Phosphorus (02/05/2022 12:56 AM EDT) P athologist Signature Phosphorus 7.1 (H) 2.5 - 4.5 [facility] mg/dL [facility] Specimen Anatomical Collection Method Collection Time Receive d Time (Source) Location / / Volume Laterality Blood 02/05/2022 12:56 02/05/2022 1:20 AM EDT AM EDT Resulting Agency Comment Spec In Lab Gela Novak MD CHEMISTRY ORDERABLES Performing Organization Address City/[facility]/[place] [address] Magnesium (02/05/2022 12:56 AM EDT) P athologist Signature Magnesium 0.84 0.69 - 1.[address] [facility] mmol/L [facility] Specimen Anatomical Collection Method Collection Time Receive d Time (Source) Location / / Volume Laterality Blood 02/05/2022 12:56 02/05/2022 1:20 AM EDT AM EDT Resulting Agency Comment Spec In Lab Gela Novak MD CHEMISTRY ORDERABLES Performing Organization Address City/[facility]/[place] [address] (ABNORMAL) BLOOD GAS 2 VENOUS (02/04/2022 6:43 PM EDT) P athologist Signature pH Honorio 7.34 7.32 - [facility] 7.42 [facility] LABORATORY pCO2 Honorio 43 41 - 51 [facility] LABORATORY pO2 Honorio 34 25 - 40 [facility] LABORATORY HCO3 Honorio 22.6 mmol/L [facility] LABORATORY BE Honorio -3.2 mmol/L [facility] LABORATORY Hgb Blood Gas 7.4 (L) 13.7 - [facility] 16.5 g/dL [facility] LABORATORY O2HB Honorio 58.9 % [facility] LABORATORY COHB Honorio 1.8 % [facility] LABORATORY Comment: Nonsmokers: 0.5-1.5% COHB Smokers: Variable, but usually less than 10% Toxic: 20-30% COHB Lethal: Greater than 60% COHB METHB Honorio 0.3 <=1.5 % [facility] LABORATORY Na Whole Blood 118 (Critical) 135 - 145 mmol/L [facility] LABORAT[facility] K Whole Blood 5.2 (H) 3.5 - 5.0 mmol/L [facility] LABORATORY Comment: Please note: Patients with WBC >100,000 may have falsely elevated Potassium levels. Contact the Clinical Chemistry L aboratory if there are any questions. ICa Whole Blood 0.99 (L) 1.15 - 1.33 mmol/L [facility] LABORATORY Comment: Note: ??Total bilirubin higher than 20 m g/dL may lead to falsely low ionized calcium. CL Whole Blood 92 (L) 98 - 107 mmol/L [facility] LABORATORY Gluc Whole Bld 100 65 - 199 mg/dL [facility] LABORATORY Comment: Diabetes: >=200 mg/dL plus symp toms Lactate WB 1.5 0.5 - 2.2 mmol/L [facility] LABORATORY BGas Source Venous [facility] LABORATORY Specimen Anatomical Collection Method Collection Time Receive d Time (Source) Location / / Volume Laterality Blood 02/04/2022 6:43 PM 6:43 EDT PM EDT Dilcia Lopez MD CHEMISTRY ORDERABLES Performing Organization Address City/State/[place] [address] Trichomonas Gene Amp ([facility]/CGP/APD/NLH) Urine (02/04/2022 4:20 PM EDT) [facility] Trich Gene Amp Negative Negative [facility] LABORATORY Comment: The only FDA approved specimen types for this assay are cervix and vaginal. Trich Source Urine [facility] LABORATORY Specimen Anatomical Collection Method Collection Time Receive d Time (Source) Location / / Volume Laterality Urine 02/04/2022 4:20 PM 2 5:03 EDT PM EDT Resulting Agency Comment Spec In Lab Dilcia Lopez MD MICROBIOLOGY - GENERAL ORDER JT Performing Organization Address [facility] Phon e [address] Chlamydia Gene Amp ([facility]/CGP/APD/NLH) Urine (02/04/2022 4:20 PM EDT) Analysis Performed At Patho logist Time Signature Chlamydia Gene Negative Negative [facility] LABORATORY Comment: The only FDA approved specimen types for this assay are cervical, vaginal, urethral and urine. Non-FDA approved myriam rces are eye, throat and rectal and have been internally validated. Chlamydia Source Urine [facility] LABORATORY Specimen Anatomical Collection Method Collection Time Receive d Time (Source) Location / / Volume Laterality Urine 02/04/2022 4:20 PM 2 5:03 EDT PM EDT Resulting Agency Comment Spec In Lab Dilcia Lopez MD MICROBIOLOGY - GENERAL ORDER JT Performing Organization Address [facility] [place] [address] GC Gene Amp ([facility]/CGP/APD/NLH) Urine (02/04/2022 4:20 PM EDT) P athologist Signature GC Gene Amp Negative Negative [facility] LABORATORY Comment: The only FDA approved specimen types for this assay are cervical, vaginal, urethral and urine. Non-FDA approved myriam rces are eye, throat and rectal and have been internally validated. GC Source Urine [facility] LABORATORY Specimen Anatomical Collection Method Collection Time Receive d Time (Source) Location / / Volume Laterality Urine 02/04/2022 4:20 PM 2 5:03 EDT PM EDT Resulting Agency Comment Spec In Lab Dilcia E Twork MD MICROBIOLOGY - GENERAL ORDER JT Performing Organization Address City/State/ZIP Code Phon e Number [place] [id number] EKG 12 Lead (02/04/2022 6:17 AM EDT) Component Value Ref Range Test Analysis Performed Pathologis t Method Time At Signature Ventricular rate 99 BPM MUSE SYSTEM Atrial Rate 99 BPM MUSE SYSTEM P-R Interval 146 ms MUSE SYSTEM QRS Duration 96 ms MUSE SYSTEM Q-T Interval 336 ms MUSE SYSTEM QTC Calculated 431 ms MUSE SYSTEM (Bezet) Calculated P Dexter 37 degrees MUSE SYSTEM Calculated R Dexter 16 degrees MUSE SYSTEM Calculated T Dexter 14 degrees MUSE SYSTEM INTERPRETATION Normal sinus rhythm MUSE SYSTEM Normal ECG When compared with ECG of 30-JAN-2022 09:18, Nonspecific T wave abnormality, improved in Inferior leads Confirmed by Tucker Beard ([id number]) on 02/04/2022 5:25:0 4 PM Specimen Anatomical Collection Method Collection Time Receive d Time (Source) Location / / Volume Laterality 02/04/2022 6:17 AM 5:25 EDT PM EDT Candida Krishna MD ECG ORDERABLES Performing Organization Address City/[facility]/ZIP Code Phon e Number MUSE SYSTEM (ABNORMAL) Albumin Level (02/04/2022 4:21 AM EDT) P athologist Signature Albumin 1.7 (L) 3.2 - 5.2 [facility] g/dL [facility] LABORATORY Specimen Anatomical Collection Method Collection Time Receive d Time (Source) Location / / Volume Laterality Blood Venous Draw / 02/04/2022 4:21 AM 02/05/20 4:25 Unknown EDT AM EDT Resulting Agency Comment Spec In Lab Candida Krishna MD CHEMISTRY ORDERABLES Performing Organization Address City/[facility]/[place] [address] (ABNORMAL) Differential, Automated (02/04/2022 4:21 AM EDT) Patholo gist Method Time Signature Neutrophils % 71.7 % [facility] LABORATORY Neutr Abs (ANC) 22.88 (H) 1.70 [facility] 6.10 [facility] x10(3)/[facility] LABORATORY Lymphocytes % 8.4 % [facility] LABORATORY Lymphocytes Abs 2.7 0.9 - 3.2 [facility] x10(3)/[facility] LABORATORY Monocytes % 8.2 % [facility] LABORATORY Monocyte Abs 2.6 (H) 0.3 - 0.9 [facility] x10(3)/[facility] LABORATORY Eosinophils % 1.4 % [facility] LABORATORY Eosinophils Abs 0.4 0.0 - 0.4 [facility] x10(3)/[facility] LABORATORY Basophils % 0.6 % [facility] LABORATORY Basophils Abs 0.2 (H) 0.0 - 0.1 [facility] x10(3)/[facility] LABORATORY Immature Gran % 9.70 % [facility] LABORATORY Comment: Immature granulocytes(IG's)percentage an d absolute count will include metamyelocytes, myelocytes, and promyelo cytes. Blood smears from CBCs yielding IG's will be scanned manually for concor dance. If this scan disagrees with the automated IG or if promyelocytes are not ed, a manual differential will be performed. Gemini Gran Abs 3.09 (H) 0.00 - 0.04 x10(3)/[facility] LABORATORY Specimen Anatomical Collection Method Collection Time Receive d Time (Source) Location / / Volume Laterality Blood 02/04/2022 4:21 AM 4:24 EDT AM EDT Resulting Agency Comment Spec In Lab Dilcia Lopez MD HEMATOLOGY ORDERABLES Performing Organization Address City/State/[place] [address] (ABNORMAL) Hemogram (02/04/2022 4:21 AM EDT) P athologist Signature WBC 31.9 4.0 - 9.5 [facility] (Critical) x10(3)/[facility] LABORATORY Comment: This result has been called to NIKKI SANZ by Nicki Bazzi on 02 04 2022 at 0434, and has been read back. RBC 2.40 (L) 4.58 - 5.54 x10(6)/[facility] LABORATORY Hemoglobin 7.7 (L) 13.7 - 16.5 g/dL [facility] LABORATORY Hematocrit 21.4 (L) 40.5 - 48.5 % [facility] LABORATORY MCV 89.2 82.9 - 93.1 [facility] LABORATORY MCH 32.1 27.5 - 32.1 pg [facility] LABORATORY MCHC 36.0 (H) 32.0 - 35.7 g/dL [facility] LABORATORY Platelets 303 145 - 357 x10(3)/[facility] LABORATORY RDWSD 46.1 (H) 36.0 - 45.0 [facility] LABORATORY RDWCV 14.6 (H) 11.4 - 13.8 % [facility] LABORATORY MPV 9.8 7.6 - 12.9 [facility] LABORATORY nRBC % Auto 0.0 % [facility] LABORATORY nRBC Abs Auto 0.000 0.000 - 0.000 x10(3)/[facility] LABORATORY Specimen Anatomical Collection Method Collection Time Receive d Time (Source) Location / / Volume Laterality Blood 02/04/2022 4:21 AM 4:24 EDT AM EDT Resulting Agency Comment Spec In Lab Dilcia Lopez MD HEMATOLOGY ORDERABLES Performing Organization Address City/State/[place] [address] (ABNORMAL) Basic Metabolic Panel (non-fasting) (02/04/2022 4:21 AM EDT) athologist Signature Glucose Lvl 100 65 - 199 [facility] mg/dL [facility] LABORATORY Comment: Diabetes: >=200 mg/dL plus symp toms BUN 64 (H) 10 - 20 mg/dL [facility] LABORATORY Creatinine 5.55 (H) 0.80 - 1.50 mg/dL [facility] LABORATORY Comment: result rechecked-KS Sodium 120 (L) 135 - 145 mmol/L [facility] LABORATORY Potassium 5.7 (H) 3.5 - 5.0 mmol/L [facility] LABORATORY Comment: Please note: ??Patients with WBC >100,00 0 may have falsely elevated Potassium levels. ??For accurate Potassium quantif ication in these patients send serum separator tube (gold top) for subsequent determinations. ??Contact the Clinical Chemistry Laboratory if there are any qu estions. Chloride 91 (L) 98 - 107 mmol/L [facility] LABORATORY CO2 19 (L) 22 - 31 mmol/L [facility] LABORATORY Anion Gap 10 5 - 15 mmol/L [facility] LABORATORY Calcium 6.3 (Critical) 8.5 - 10.5 mg/dL [facility] LABORATORY Comment: called by KS/read back by Yessi Esteves / 02/04/22 0513 Estimated GFR 13 (L) >=60 mL/min/1.73 m?? [facility] LABORATORY Comment: This patient's estimated [...] Organization Address City/State/[place] [address] (ABNORMAL) Phosphorus (02/04/2022 4:21 AM EDT) P athologist Signature Phosphorus 7.5 (H) 2.5 - 4.5 [facility] mg/dL [facility] LABORATORY Specimen Anatomical Collection Method Collection Time Receive d Time (Source) Location / / Volume Laterality Blood 02/04/2022 4:21 AM 2 4:24 EDT AM EDT Resulting Agency Comment Spec In Lab Gela Novak MD CHEMISTRY ORDERABLES Performing Organization Address City/[facility]/ZIP Code Phon e Number [address] Magnesium (02/04/2022 4:21 AM EDT) P athologist Signature Magnesium 0.88 0.69 - 1.07 [facility] mmol/L [facility] LABORATORY Specimen Anatomical Collection Method Collection Time Receive d Time (Source) Location / / Volume Laterality Blood 02/04/2022 4:21 AM 2 4:24 EDT AM EDT Resulting Agency Comment Spec In Lab Gela Novak MD CHEMISTRY ORDERABLES Performing Organization Address City/[facility]/ZIP Code Phon e Number [address] Transfuse RBC (02/03/2022 6:36 PM EDT) Dilcia Lopez MD NURSING TREATMENT ORDERABLES - BLOOD ADMIN Transfuse RBC (02/03/2022 6:36 PM EDT) Dilcia Lopez MD NURSING TREATMENT ORDERABLES - BLOOD ADMIN POCT Glucose (02/03/2022 3:40 PM EDT) P athologist Signature POC Glucose 127 65 - 199 [facility] mg/dL [facility] LABORATORY Comment: Supplemental ranges: <140 mg/dL before meals <180 mg/dL all other times of the day Specimen Anatomical Collection Method Collection Time Receive d Time (Source) Location / / Volume Laterality Blood 02/03/2022 3:40 PM 2 3:40 EDT PM EDT Dilcia Lopez MD POINT OF CARE TEST ORDERABLE S Performing Organization Address City/[facility]/[place] [address] Prepare RBC (02/03/2022 3:20 PM EDT) athologist Signature Dispensed? No [facility] LABORATORY Specimen Anatomical Collection Method Collection Time Receive d Time (Source) Location / / Volume Laterality Blood 02/03/2022 3:20 PM 2 3:19 EDT PM EDT Dilcia Lopez MD BLOOD BANK ORDERABLES Performing Organization Address City/State/[place] [address] (ABNORMAL) Hemogram (02/03/2022 2:15 PM EDT) athologist Signature WBC 30.1 4.0 - 9.5 [facility] (Critical) x10(3)/[facility] LABORATORY Comment: This result has been called to VINOD WILCOX by Sarah Robisno on 02 03 2022 at 1432, and has been read ba ck. RBC 2.14 (L) 4.58 - 5.54 x10(6)/[facility] LABORATORY Hemoglobin 6.8 (L) 13.7 - 16.5 g/dL [facility] LABORATORY Hematocrit 19.4 (L) 40.5 - 48.5 % [facility] LABORATORY MCV 90.7 82.9 - 93.1 fL [facility] LABORATORY MCH 31.8 27.5 - 32.1 pg [facility] LABORATORY MCHC 35.1 32.0 - 35.7 g/dL [facility] LABORATORY Platelets 333 145 - 357 x10(3)/[facility] LABORATORY RDWSD 45.9 (H) 36.0 - 45.0 fL [facility] LABORATORY RDWCV 14.2 (H) 11.4 - 13.8 % [facility] LABORATORY MPV 10.0 7.6 - 12.9 fL [facility] LABORATORY nRBC % Auto 0.0 % [facility] LABORATORY nRBC Abs Auto 0.000 0.000 - 0.000 x10(3)/[facility]L [facility] LABORATORY Specimen Anatomical Collection Method Collection Time Receive d Time (Source) Location / / Volume Laterality Blood 02/03/2022 2:15 PM 2:21 EDT PM EDT Resulting Agency Comment Spec In Lab Dilcia Lopez MD HEMATOLOGY ORDERABLES Performing Organization Address City/[facility]/ZIP Code Phon e Number [place] [id number] HOSPITAL LABOR[address]ORY Drive Transfuse RBC (02/03/2022 11:43 AM EDT) Raimundo Lara MD NURSING TREATMENT ORDER JT - BLOOD ADMIN Transfuse RBC (02/03/2022 11:43 AM EDT) Raimundo Lara MD NURSING TREATMENT ORDER JT - BLOOD ADMIN POCT Glucose (02/03/2022 11:42 AM EDT) P athologist Signature POC Glucose 129 65 - 199 [facility] mg/dL [facility] LABORATORY Comment: Supplemental ranges: <140 mg/dL before meals <180 mg/dL all other times of the day Specimen Anatomical Collection Method Collection Time Receive d Time (Source) Location / / Volume Laterality Blood 02/03/2022 11:42 02/03/2022 AM EDT 11:42 AM EDT Erika Retana MD POINT OF CARE TEST ORDERABLE S Performing Organization Address City/[facility]/ZIP Code Phon e Number [place] [id number] HOSPITAL LABOR[address]ORY Drive Duplex for DVT, Arm, Unilat (02/03/2022 9:07 AM EDT) Component Value Ref Test Analysis Performed At Patholo gist Range Method Time Signature VB Text Department: Vascular Surgery Lab [facility] Report Patient: [id number] (ALIX HOLLAND) CPT: 38768 Referring Physician: AGNIESZKA LÓPEZ ?? Phone: Indications: [...] lab database for comparison. Electronically Signed by: NHAED BENITES on 2022-02-05 09:41:16 AM VB Text End of Report [facility]AS[facility] Report Specimen (Source) Anatomical Collection Method Collection Time Re ceived Time Location / / Volume Laterality 02/03/2022 9:07 AM EDT Erika Retana MD VASCULAR ORDERABLES Performing Organization Address City/State/ZIP Code Phon e Number [facility] Duplex Study for DVT, Bilat legs (02/03/2022 9:07 AM EDT) Component Value Ref Test Analysis Performed At [facility] [place] Range Method Time Signature VB Text Department: Vascular Surgery Lab VASCUBASE Report Patient: [id number] (ALIX HOLLAND) CPT: 01116 Referring Physician: AGNIESZKA LÓPEZ ?? Phone: Indications: [...] POC Glucose 128 65 - 199 [facility] mg/dL [facility] LABORATORY Comment: Supplemental ranges: <140 mg/dL before meals <180 mg/dL all other times of the day Specimen Anatomical Collection Method Collection Time Receive d Time (Source) Location / / Volume Laterality Blood 02/03/2022 8:17 AM 8:17 EDT AM EDT Erika Retana MD POINT OF CARE TEST ORDERABLE S Performing Organization Address City/State/ZIP Code Phon e Number [facility] [place] [address] Prepare RBC (02/03/2022 7:51 AM EDT) athologist Signature Dispensed? Yes [facility] LABORATORY Specimen Anatomical Collection Method Collection Time Receive d Time (Source) Location / / Volume Laterality Blood No Charge / 02/03/2022 7:51 AM 2 7:51 Unknown EDT AM EDT Resulting Agency Comment Spec In Lab Raimundo Lara MD BLOOD BANK ORDERABLES Performing Organization Address City/[facility]/[place] [address] Prepare RBC (02/03/2022 7:45 AM EDT) athologist Signature Dispensed? Yes [facility] LABORATORY Specimen Anatomical Collection Method Collection Time Receive d Time (Source) Location / / Volume Laterality Blood 02/03/2022 7:45 AM 2 7:42 EDT AM EDT Raimundo Lara MD BLOOD BANK ORDERABLES Performing Organization Address City/[facility] [address] (ABNORMAL) Hemoglobin and Hematocrit, blood (02/03/2022 6:47 AM EDT) P athologist Signature Hemoglobin 5.6 13.7 - [facility] (Critical) 16.5 g/dL [facility] LABORATORY Comment: This result has been called to EMANI HESS by Sarah Robison on 02 03 2022 at 0738, and has been read back. Hematocrit 16.0 (L) 40.5 - 48.5 % [facility] LABORATORY Specimen Anatomical Collection Method Collection Time Receive d Time (Source) Location / / Volume Laterality Blood 02/03/2022 6:47 AM 2 7:05 EDT AM EDT Resulting Agency Comment Spec In Lab Raimundo Lara MD HEMATOLOGY ORDERABLES Performing Organization Address City/[facility]/[place] [address] Scan, Peripheral Blood (02/03/2022 4:55 AM EDT) Patholo gist Method Time Signature Plat Estimate Normal [facility] LABORATORY RBC Morphology Abnormal [facility] LABORATORY Macrocytes 1-5 /HPF [facility] LABOR[facility]ORY Microcytes 1-5 /HPF [facility] LABORATORY Stippled RBCs Present >1/HPF [facility] LABORATORY Specimen Anatomical Collection Method Collection Time Receive d Time (Source) Location / / Volume Laterality Blood 02/03/2022 4:55 AM 5:09 EDT AM EDT Resulting Agency Comment Spec In Lab Dimas Hernandez MD HEMATOLOGY ORDERABLES Performing Organization Address City/State/[place] [address] (ABNORMAL) Differential, Automated (02/03/2022 4:55 AM EDT) [facility] Method Time Signature Neutrophils % 68.7 % [facility] LABORATORY Neutr Abs (ANC) 21.19 (H) 1.70 - [facility] 6.10 [facility] x10(3)/[facility] LABORATORY Lymphocytes % 10.5 % [facility] LABORATORY Lymphocytes Abs 3.2 0.9 - 3.2 [facility] x10(3)/[facility] LABORATORY Monocytes % 8.7 % [facility] LABORATORY Monocyte Abs 2.7 (H) 0.3 - 0.9 [facility] x10(3)/[facility] LABORATORY Eosinophils % 1.6 % [facility] LABORATORY Eosinophils Abs 0.5 (H) 0.0 - 0.4 [facility] x10(3)/[facility] LABORATORY Basophils % 0.3 % [facility] LABORATORY Basophils Abs 0.1 0.0 - 0.1 [facility] x10(3)/[facility] LABORATORY Immature Gran % 10.20 % [facility] LABORATORY Comment: Immature granulocytes(IG's)percentage an d absolute count will include metamyelocytes, myelocytes, and promyelo cytes. Blood smears from CBCs yielding IG's will be scanned manually for concor dance. If this scan disagrees with the automated IG or if promyelocytes are not ed, a manual differential will be performed. Gemini Gran Abs 3.13 (H) 0.00 - 0.04 x10(3)/[facility] LABORATORY Specimen Anatomical Collection Method Collection Time Receive d Time (Source) Location / / Volume Laterality Blood 02/03/2022 4:55 AM 5:09 EDT AM EDT Resulting Agency Comment Spec In Lab Dimas Hernanedz MD HEMATOLOGY ORDERABLES Performing Organization Address City/State/[place] [address] (ABNORMAL) Hemogram (02/03/2022 4:55 AM EDT) athologist Signature WBC 30.8 4.0 - 9.5 [facility] (Critical) x10(3)/[facility] LABORATORY Comment: This result has been called to HALLEY HO by Maureen Dixon on 02 03 2022 at 0555, and has been read back. RBC 1.72 (L) 4.58 - 5.54 x10(6)/[facility] LABORATORY Hemoglobin 5.6 (Critical) 13.7 - 16.5 g/dL [facility] LABORATORY Comment: This result has been called to HALLEY HO by Maureen Dixon on 02 03 2022 at 0555, and has been read back. Hematocrit 15.9 (L) 40.5 - 48.5 % [facility] LABORATORY MCV 92.4 82.9 - 93.1 [facility] LABORATORY MCH 32.6 (H) 27.5 - 32.1 pg [facility] LABORATORY MCHC 35.2 32.0 - 35.7 g/dL [facility] LABORATORY Platelets 310 145 - 357 x10(3)/[facility] LABORATORY RDWSD 45.4 (H) 36.0 - 45.0 [facility] RDWCV 14.2 (H) 11.4 - 13.8 % [facility] LABORATORY MPV 10.2 7.6 - 12.9 fL [facility] LABORATORY nRBC % Auto 0.0 % [facility] LABORATORY nRBC Abs Auto 0.000 0.000 - 0.000 x10(3)/[facility]L [facility] LABORATORY Specimen Anatomical Collection Method Collection Time Receive d Time (Source) Location / / Volume Laterality Blood 02/03/2022 4:55 AM 5:09 EDT AM EDT Resulting Agency Comment Spec In Lab Dimas Hernandez MD HEMATOLOGY ORDERABLES Performing Organization Address City/State/[place] [address] (ABNORMAL) Basic Metabolic Panel (non-fasting) (02/03/2022 4:55 AM EDT) P athologist Signature Glucose Lvl 117 65 - 199 [facility] mg/dL [facility] LABORATORY Comment: Diabetes: >=200 mg/dL plus symp toms BUN 53 (H) 10 - 20 mg/dL [facility] LABORATORY Creatinine 4.40 (H) 0.80 - 1.50 mg/dL [facility] LABORATORY Sodium 123 (L) 135 - 145 mmol/L [facility] LABORATORY Potassium 5.2 (H) 3.5 - 5.0 mmol/L [facility] LABORATORY Comment: Please note: ??Patients with WBC >100,00 0 may have falsely elevated Potassium levels. ??For accurate Potassium quantif ication in these patients send serum separator tube (gold top) for subsequent determinations. ??Contact the Clinical Chemistry Laboratory if there are any qu estions. Chloride 93 (L) 98 - 107 mmol/L [facility] LABORATORY CO2 22 22 - 31 mmol/L [facility] LABORATORY Anion Gap 8 5 - 15 mmol/L [facility] LABORATORY Calcium 6.3 (Critical) 8.5 - 10.5 mg/dL [facility] LABORATORY Comment: Called by: , Read back by: Kerwin George, Date/Time:02/03/22 05:46. Estimated GFR 18 (L) >=60 mL/min/1.73 m?? [facility] LABORATORY Comment: This patient's estimated [...] Organization Address City/State/ZIP Code Phon e Number [address] (ABNORMAL) Phosphorus (02/03/2022 4:55 AM EDT) P athologist Signature Phosphorus 6.4 (H) 2.5 - 4.[address] [facility] mg/dL [facility] LABORATORY Specimen Anatomical Collection Method Collection Time Receive d Time (Source) Location / / Volume Laterality Blood 02/03/2022 4:55 AM 2 5:09 EDT AM EDT Resulting Agency Comment Spec In Lab Gela Novak MD CHEMISTRY ORDERABLES Performing Organization Address City/State/ZIP Code Phon e Number [address] Magnesium (02/03/2022 4:55 AM EDT) P athologist Signature Magnesium 0.84 0.69 - 1.[address] [facility] mmol/L [facility] LABORATORY Specimen Anatomical Collection Method Collection Time Receive d Time (Source) Location / / Volume Laterality Blood 02/03/2022 4:55 AM 2 5:09 EDT AM EDT Resulting Agency Comment Spec In Lab Gela Novak MD CHEMISTRY ORDERABLES Performing Organization Address City/State/[place] [address] Vitamin B12 (02/03/2022 4:55 AM EDT) athologist Signature Vitamin B-12 535 232 - 1,245 [facility] MAND[facility] pg/mL [facility] LABORATORY Specimen Anatomical Collection Method Collection Time Receive d Time (Source) Location / / Volume Laterality Blood 02/03/2022 4:55 AM 2 5:09 EDT AM EDT Resulting Agency Comment Spec In Lab Erika Retana MD CHEMISTRY ORDERABLES Performing Organization Address City/[facility]/[place] [address] (ABNORMAL) Folate, serum (02/03/2022 4:55 AM EDT) athologist [facility] Folate Lvl 3.9 (L) 4.8 - 24.2 [facility] MAND[facility] ng/mL [facility] LABORATORY Specimen Anatomical Collection Method Collection Time Receive d Time (Source) Location / / Volume Laterality Blood 02/03/2022 4:55 AM 2 5:09 EDT AM EDT Resulting Agency Comment Spec In Lab Erika Retana MD CHEMISTRY ORDERABLES Performing Organization Address City/State/[place] [address] POCT Glucose (02/02/2022 4:08 PM EDT) athologist Signature POC Glucose 135 65 - 199 JOSH MANDO mg/dL [facility] LABORATORY Comment: Supplemental ranges: <140 mg/dL before meals <180 mg/dL all other times of the day Specimen Anatomical Collection Method Collection Time Receive d Time (Source) Location / / Volume Laterality Blood 02/02/2022 4:08 PM 2 4:08 EDT PM EDT Evangelina Flynn MD POINT OF CARE TEST ORDERABLE S Performing Organization Address City/State/[place] [address] (ABNORMAL) Hemogram (02/02/2022 12:40 PM EDT) athologist Signature WBC 33.6 4.0 - 9.5 [facility] (Critical) x10(3)/[facility] LABORATORY Comment: This result has been called to BHARAT MOREL CIA by Galdino Bynum on 02 02 2022 at 1255, and has been read back. RBC 2.29 (L) 4.58 - 5.54 x10(6)/[facility] LABORATORY Hemoglobin 7.4 (L) 13.7 - 16.5 g/dL [facility] LABORATORY Hematocrit 20.9 (L) 40.5 - 48.5 % [facility] LABORATORY MCV 91.3 82.9 - 93.1 [facility] LABORATORY MCH 32.3 (H) 27.5 - 32.1 pg [facility] LABORATORY MCHC 35.4 32.0 - 35.7 g/dL [facility] LABORATORY Platelets 278 145 - 357 x10(3)/[facility] LABORATORY RDWSD 44.7 36.0 - 45.0 [facility] LABORATORY RDWCV 13.9 (H) 11.4 - 13.8 % [facility] LABORATORY MPV 10.2 7.6 - 12.9 [facility] LABORATORY nRBC % Auto 0.0 % [facility] LABORATORY nRBC Abs Auto 0.000 0.000 - 0.000 x10(3)/[facility] LABORATORY Specimen Anatomical Collection Method Collection Time Receive d Time (Source) Location / / Volume Laterality Blood 02/02/2022 12:40 02/02/2022 PM EDT 12:47 PM EDT Resulting Agency Comment Spec In Lab Beck Sanz MD HEMATOLOGY ORDERABLES Performing Organization Address City/State/[place] [address] POCT Glucose (02/02/2022 7:57 AM EDT) athologist Signature POC Glucose 113 65 - 199 [facility] LABORATORY Comment: Supplemental ranges: <140 mg/dL before meals <180 mg/dL all other times of the day Specimen Anatomical Collection Method Collection Time Receive d Time (Source) Location / / Volume Laterality Blood 02/02/2022 7:57 AM 7:57 EDT AM EDT Evangelina Flynn MD POINT OF CARE TEST ORDERABLE S Performing Organization Address City/State/ZIP Code Phon e Number [address] (ABNORMAL) Iron and TIBC (02/02/2022 2:29 AM EDT) Analysis Performed At Patho logist Time Signature Iron 41 (L) 45 - [address] [facility] mcg/dL [facility] LABORATORY TIBC 149 (L) 250 - 450 [facility] LABORATORY Iron Saturation 28 20 - 50 % [facility] LABORATORY Specimen Anatomical Collection Method Collection Time Receive d Time (Source) Location / / Volume Laterality Blood Venous Draw / 02/02/2022 2:29 AM 02/03/20 22 2:34 Unknown EDT AM EDT Resulting Agency Comment Spec In Lab Vidhya Peñaloza MD CHEMISTRY ORDERABLES Performing Organization Address City/[facility]/ZIP Code Phon e Number [address] (ABNORMAL) Differential, Automated (02/02/2022 2:29 AM EDT) Patholo gist Method Time Signature Neutrophils % 69.5 % [facility] LABORATORY Neutr Abs (ANC) 21.20 (H) 1.70 - [facility] 6.10 [facility] x10(3)/[facility] L LABORATORY Lymphocytes % 11.0 % [facility] LABORATORY Lymphocytes Abs 3.3 (H) 0.9 - 3.2 [facility] x10(3)/[facility] LABORATORY Monocytes % 8.4 % [facility] LABORATORY Monocyte Abs 2.6 (H) 0.3 - 0.9 [facility] x10(3)/[facility] LABORATORY Eosinophils % 1.6 % [facility] LABORATORY Eosinophils Abs 0.5 (H) 0.0 - 0.4 [facility] x10(3)/[facility] LABORATORY Basophils % 0.5 % [facility] LABORATORY Basophils Abs 0.1 0.0 - 0.1 [facility] x10(3)/[facility] LABORATORY Immature Gran % 9.00 % [facility] LABORATORY Comment: Immature granulocytes(IG's)percentage an d absolute count will include metamyelocytes, myelocytes, and promyelo cytes. Blood smears from CBCs yielding IG's will be scanned manually for concor dance. If this scan disagrees with the automated IG or if promyelocytes are not ed, a manual differential will be performed. Gemini Gran Abs 2.75 (H) 0.00 - 0.04 x10(3)/[facility] LABORATORY Specimen Anatomical Collection Method Collection Time Receive d Time (Source) Location / / Volume Laterality Blood 02/02/2022 2:29 AM 2 2:33 EDT AM EDT Resulting Agency Comment Spec In Lab Dimas Hernandez MD HEMATOLOGY ORDERABLES Performing Organization Address City/State/[place] [address] (ABNORMAL) Hemogram (02/02/2022 2:29 AM EDT) P athologist Signature WBC 30.5 4.0 - 9.5 [facility] (Critical) x10(3)/[facility] LABORATORY Comment: This result has been called to CARLOS TUBBS by GAMA THOMPSON on 02 02 2022 at 0245, and has been read back. RBC 2.18 (L) 4.58 - 5.54 x10(6)/[facility] LABORATORY Hemoglobin 7.0 (L) 13.7 - 16.5 g/dL [facility] LABORATORY Hematocrit 20.6 (L) 40.5 - 48.5 % [facility] LABORATORY MCV 94.5 (H) 82.9 - 93.1 fL [facility] LABORATORY MCH 32.1 27.5 - 32.1 pg [facility] LABORATORY MCHC 34.0 32.0 - 35.7 g/dL [facility] LABORATORY Platelets 245 145 - 357 x10(3)/[facility] LABORATORY RDWSD 46.5 (H) 36.0 - 45.0 fL [facility] LABORATORY RDWCV 13.7 11.4 - 13.8 % [facility] LABORATORY MPV 10.3 7.6 - 12.9 fL [facility] LABORATORY nRBC % Auto 0.0 % [facility] LABORATORY nRBC Abs Auto 0.000 0.000 - 0.000 x10(3)/[facility] LABORATORY Specimen Anatomical Collection Method Collection Time Receive d Time (Source) Location / / Volume Laterality Blood 02/02/2022 2:29 AM 2 2:33 EDT AM EDT Resulting Agency Comment Spec In Lab Dimas Hernandez MD HEMATOLOGY ORDERABLES Performing Organization Address City/State/[place] [address] (ABNORMAL) Basic Metabolic Panel (non-fasting) (02/02/2022 2:29 AM EDT) P athologist Signature Glucose Lvl 107 65 - 199 [facility] mg/dL [facility] LABORATORY Comment: Diabetes: >=200 mg/dL plus symp toms BUN 63 (H) 10 - 20 mg/dL [facility] LABORATORY Creatinine 4.78 (H) 0.80 - 1.50 mg/dL [facility] LABORATORY Sodium 127 (L) 135 - 145 mmol/L [facility] LABORATORY Potassium 5.2 (H) 3.5 - 5.0 mmol/L [facility] LABORATORY Comment: Please note: ??Patients with WBC >100,00 0 may have falsely elevated Potassium levels. ??For accurate Potassium quantif ication in these patients send serum separator tube (gold top) for subsequent determinations. ??Contact the Clinical Chemistry Laboratory if there are any qu estions. Chloride 97 (L) 98 - 107 mmol/L [facility] LABORATORY CO2 20 (L) 22 - 31 mmol/L [facility] LABORATORY Anion Gap 10 5 - 15 mmol/L [facility] LABORATORY Calcium 6.8 (Critical) 8.5 - 10.5 mg/dL [facility] LABORATORY Comment: Called by: , Read back by: ashley george, Date/Time:02/02/22 03:11. Estimated GFR 16 (L) >=60 mL/min/1.73 m?? [facility] LABORATORY Comment: This patient's estimated [...] Organization Address City/State/[place] [address] (ABNORMAL) Phosphorus (02/02/2022 2:29 AM EDT) P athologist Signature Phosphorus 5.7 (H) 2.5 - 4.5 [facility] mg/dL [facility] LABORATORY Specimen Anatomical Collection Method Collection Time Receive d Time (Source) Location / / Volume Laterality Blood 02/02/2022 2:29 AM 2 2:33 EDT AM EDT Resulting Agency Comment Spec In Lab Gela Novak MD CHEMISTRY ORDERABLES Performing Organization Address City/State/[place] [address] [facility] [address] Magnesium (02/02/2022 2:29 AM EDT) athologist Signature Magnesium 0.95 0.69 - 1.07 [facility] mmol/L [facility] LABORATORY Specimen Anatomical Collection Method Collection Time Receive d Time (Source) Location / / Volume Laterality Blood 02/02/2022 2:29 AM 2 2:33 EDT AM EDT Resulting Agency Comment Spec In Lab Gela Novak MD CHEMISTRY ORDERABLES Performing Organization Address City/State/ZIP Code Phon e Number [place] [id number] [facility] [address] Drive (ABNORMAL) Hemogram (02/01/2022 6:15 PM EDT) athologist Signature WBC 30.4 4.0 - 9.5 [facility] (Critical) x10(3)/[facility] LABORATORY Comment: This result has been called to FOREST HUFFMAN by Pretty Luna on 02 01 2022 at 1911, and has been read back. RBC 2.33 (L) 4.58 - 5.54 x10(6)/[facility] LABORATORY Hemoglobin 7.7 (L) 13.7 - 16.5 g/dL [facility] LABORATORY Hematocrit 21.9 (L) 40.5 - 48.5 % [facility] LABORATORY MCV 94.0 (H) 82.9 - 93.1 [facility] LABORATORY MCH 33.0 (H) 27.5 - 32.1 pg [facility] LABORATORY MCHC 35.2 32.0 - 35.7 g/dL [facility] LABORATORY Platelets 220 145 - 357 x10(3)/[facility] LABORATORY RDWSD 44.9 36.0 - 45.0 [facility] LABORATORY RDWCV 13.3 11.4 - 13.8 % [facility] LABORATORY MPV 10.8 7.6 - 12.9 [facility] LABORATORY nRBC % Auto 0.0 % [facility] LABORATORY nRBC Abs Auto 0.000 0.000 - 0.000 x10(3)/[facility]L [facility] LABORATORY Specimen Anatomical Collection Method Collection Time Receive d Time (Source) Location / / Volume Laterality Blood 02/01/2022 6:15 PM 2 6:29 EDT PM EDT Resulting Agency Comment Spec In Lab Jorge L Ernst APRN HEMATOLOGY ORDERABLES Performing Organization Address City/State/[place] [address] (ABNORMAL) Basic Metabolic Panel (non-fasting) (02/01/2022 6:15 PM EDT) athologist Signature Glucose Lvl 121 65 - 199 [facility] mg/dL [facility] LABORATORY Comment: Diabetes: >=200 mg/dL plus symp toms BUN 56 (H) 10 - 20 mg/dL [facility] LABORATORY Creatinine 4.21 (H) 0.80 - 1.50 mg/dL [facility] LABORATORY Sodium 127 (L) 135 - 145 mmol/L [facility] LABORATORY Potassium 5.1 (H) 3.5 - 5.0 mmol/L [facility] LABORATORY Comment: Please note: ??Patients with WBC >100,00 0 may have falsely elevated Potassium levels. ??For accurate Potassium quantif ication in these patients send serum separator tube (gold top) for subsequent determinations. ??Contact the Clinical Chemistry Laboratory if there are any qu estions. Chloride 96 (L) 98 - 107 mmol/L [facility] LABORATORY CO2 21 (L) 22 - 31 mmol/L [facility] LABORATORY Anion Gap 10 5 - 15 mmol/L [facility] LABORATORY Calcium 7.2 (L) 8.5 - 10.5 mg/dL [facility] LABORATORY Estimated GFR 19 (L) >=60 mL/min/1.73 m?? [facility] LABORATORY Comment: This patient's estimated [...] City/State/ZIP Code Phon e Number [place] [id number]OS[address] LAB[address] Drive Transfuse RBC (02/01/2022 5:16 PM EDT) Jorge L Ernst APRN NURSING TREATMENT ORDERABLES - BLOOD ADMIN Transfuse RBC (02/01/2022 5:16 PM EDT) Jorge L Ernst APRN NURSING TREATMENT ORDERABLES - BLOOD ADMIN (ABNORMAL) C. Difficile Screen (02/01/2022 1:55 PM EDT) [facility] Method Time Signature C Diff Screen Positive (A) Negative [facility] LABORATORY Comment: PCR Pos C. [...] Spec In Lab Jorge L J Klever BALL MILL OPERATOR MICROBIOLOGY - GENERAL ORDER JT Performing Organization Address City/State/[place] [address] Type and Screen Validity (02/01/2022 12:45 PM EDT) [facility] Method Time Signature T&S only valid [facility] MANDO at [facility] LABORATORY Comment: This Type and Screen result is only valid at the [facility] Specimen Anatomical Collection Method Collection Time Receive d Time (Source) Location / / Volume Laterality Blood 02/01/2022 12:45 02/01/2022 PM EDT 12:46 PM EDT Resulting Agency Comment Spec In Lab Jorge L Ernst BALL MILL OPERATOR BLOOD BANK ORDERABLES Performing Organization Address City/[facility]/ZIP Code Phon e Number [address] ABORH Recheck Status (02/01/2022 12:45 PM EDT) [facility] Method Time Signature ABORH Type Completed [facility] LABORATORY Specimen Anatomical Collection Method Collection Time Receive d Time (Source) Location / / Volume Laterality Blood 02/01/2022 12:45 02/01/2022 PM EDT 12:46 PM EDT Resulting Agency Comment Spec In Lab Jorge L Ernst BALL MILL OPERATOR BLOOD BANK ORDERABLES Performing Organization Address City/[facility]/[place] [address] Antibody screen (02/01/2022 12:45 PM EDT) [facility] Method [place] Signature Ab Screen Negative [facility] LABORATORY Expires at 02/04/2022 JOSH VELASQUEZMANDO [id number] on: [facility] LABORATORY Specimen Anatomical Collection Method Collection Time Receive d Time (Source) Location / / Volume Laterality Blood 02/01/2022 12:45 02/01/2022 PM EDT 12:46 PM EDT Resulting Agency Comment Spec In Lab Jorge L Ernst BALL MILL OPERATOR BLOOD BANK ORDERABLES Performing Organization Address City/State/[place] [address] ABO/Rh Typing (02/01/2022 12:45 PM EDT) athologist Signature ABORh Type A Pos [facility] LABORATORY Specimen Anatomical Collection Method Collection Time Receive d Time (Source) Location / / Volume Laterality Blood 02/01/2022 12:45 02/01/2022 PM EDT 12:46 PM EDT Resulting Agency Comment Spec In Lab Jorge L Singletaryault BALL MILL OPERATOR BLOOD BANK ORDERABLES Performing Organization Address [facility]/ZIP [facility] Phon e Number [address] Prepare RBC (02/01/2022 12:05 PM EDT) athologist Signature Dispensed? Yes [facility] LABORATORY Specimen Anatomical Collection Method Collection Time Receive d Time (Source) Location / / Volume Laterality Blood 02/01/2022 12:05 02/01/2022 PM EDT 12:15 PM EDT Jorge L Jacobsonreault BALL MILL OPERATOR BLOOD BANK ORDERABLES Performing Organization Address City/[facility] [place] [address] (ABNORMAL) Basic Metabolic Panel (non-fasting) (02/01/2022 11:42 AM EDT) athologist Signature Glucose Lvl 106 65 - 199 [facility] mg/dL [facility] LABORATORY Comment: Diabetes: >=200 mg/dL plus symp toms BUN 49 (H) 10 - 20 mg/dL [facility] LABORATORY Creatinine 3.84 (H) 0.80 - 1.50 mg/dL [facility] LABORATORY Sodium 129 (L) 135 - 145 mmol/L [facility] LABORATORY Potassium 5.1 (H) 3.5 - 5.0 mmol/L [facility] LABORATORY Comment: Please note: ??Patients with WBC >100,00 0 may have falsely elevated Potassium levels. ??For accurate Potassium quantif ication in these patients send serum separator tube (gold top) for subsequent determinations. ??Contact the Clinical Chemistry Laboratory if there are any qu estions. Chloride 98 98 - 107 mmol/L [facility] LABORATORY CO2 21 (L) 22 - 31 mmol/L [facility] LABORATORY Anion Gap 10 5 - 15 mmol/L [facility] LABORATORY Calcium 7.6 (L) 8.5 - 10.5 mg/dL [facility] LABORATORY Estimated GFR 21 (L) >=60 mL/min/1.73 m?? [facility] LABORATORY Comment: This patient's estimated [...] Organization Address City/State/[place] [address] (ABNORMAL) Hemogram (02/01/2022 11:42 AM EDT) P athologist Signature WBC 36.0 4.0 - 9.5 [facility] (Critical) x10(3)/[facility] LABORATORY Comment: This result has been called to DONTA SY by MARCIA KIMBALL on 02 01 2022 at 1154, and has been read back. RBC 1.98 (L) 4.58 - 5.54 x10(6)/[facility] LABORATORY Hemoglobin 6.4 (L) 13.7 - 16.5 g/dL [facility] LABORATORY Hematocrit 18.5 (L) 40.5 - 48.5 % [facility] LABORATORY MCV 93.4 (H) 82.9 - 93.1 fL [facility] LABORATORY MCH 32.3 (H) 27.5 - 32.1 pg [facility] LABORATORY MCHC 34.6 32.0 - 35.7 g/dL [facility] LABORATORY Platelets 239 145 - 357 x10(3)/[facility]L [facility] LABORATORY RDWSD 45.0 36.0 - 45.0 fL [facility] LABORATORY RDWCV 13.7 11.4 - 13.8 % [facility] LABORATORY MPV 10.6 7.6 - 12.9 fL [facility] LABORATORY nRBC % Auto 0.0 % [facility] LABORATORY nRBC Abs Auto 0.000 0.000 - 0.000 x10(3)/[facility] LABORATORY Specimen Anatomical Collection Method Collection Time Receive d Time (Source) Location / / Volume Laterality Blood 02/01/2022 11:42 02/01/2022 AM EDT 11:46 AM EDT Resulting Agency Comment Spec In Lab Beck Sanz MD HEMATOLOGY ORDERABLES Performing Organization Address City/State/ZIP Code Phon e Number [address] POCT Glucose (02/01/2022 10:42 AM EDT) P athologist Signature POC Glucose 119 65 - 199 [facility] mg/dL [facility] LABORATORY Comment: Supplemental ranges: <140 mg/dL before meals <180 mg/dL all other times of the day Specimen Anatomical Collection Method Collection Time Receive d Time (Source) Location / / Volume Laterality Blood 02/01/2022 10:42 02/01/2022 AM EDT 10:42 AM EDT Beck Sanz MD POINT OF CARE TEST ORDERABLE S Performing Organization Address City/State/[place] [address] Blood culture (02/01/2022 6:35 AM EDT) Patholo gist Method Time Signature Blood Culture No growth JOSH GILMORE at 5 days. [facility] LABORATORY Specimen Anatomical Collection Method Collection Time Receive d Time (Source) Location / / Volume Laterality Blood 02/01/2022 6:35 AM 2 9:38 EDT AM EDT Resulting Agency Comment Spec In Lab Beck Sanz MD MICROBIOLOGY - BLOOD ORDERAB LES Performing Organization Address City/[facility]/ZIP [facility] [place] [address] Blood culture (02/01/2022 6:25 AM EDT) [facility] gist Method Time Signature Blood Culture No growth JOSH GILMORE at 5 days. [facility] LABORATORY Specimen (Source) Anatomical Collection Method Collection Time Re ceived Time Location / / Volume Laterality Blood Pediatric 02/01/2022 6:25 2 9:38 AM EDT AM EDT Resulting Agency Comment Spec In Lab Beck Sanz MD MICROBIOLOGY - BLOOD ORDERAB LES Performing Organization Address [facility] [place] [address] (ABNORMAL) Calcium Ionized Whole Blood, HONORIO (02/01/2022 4:00 AM EDT) Analysis Performed At Patho logist Time Signature pH Honorio 7.43 (H) 7.32 - [facility] 7.42 [facility] LABORATORY ICa Whole 1.13 (L) 1.15 - [facility] Blood 1.33 [facility] mmol/L [facility] LABORATORY Comment: Note: ??Total bilirubin higher than 20 m g/dL may lead to falsely low ionized calcium. Specimen Anatomical Collection Method Collection Time Receive d Time (Source) Location / / Volume Laterality Blood ARTERIAL LINE / 02/01/2022 4:00 AM 2021 4:11 Unknown EDT AM EDT Resulting Agency Comment Spec In Lab Erika Retana MD CHEMISTRY ORDERABLES Performing Organization Address City/[facility]/ZIP [facility] [place] [address] (ABNORMAL) Hemogram (02/01/2022 4:00 AM EDT) P athologist Signature WBC 43.9 4.0 - 9.5 [facility] (Critical) x10(3)/[facility] LABORATORY Comment: This result has been called to GEENA AMBRIZ by Nicki Bazzi on 02 01 2022 at 0446, and has been read back. RBC 2.20 (L) 4.58 - 5.54 x10(6)/[facility] LABORATORY Hemoglobin 7.1 (L) 13.7 - 16.5 g/dL [facility] LABORATORY Hematocrit 20.3 (L) 40.5 - 48.5 % [facility] LABORATORY MCV 92.3 82.9 - 93.1 fL [facility] LABORATORY MCH 32.3 (H) 27.5 - 32.1 pg [facility] LABORATORY MCHC 35.0 32.0 - 35.7 g/dL [facility] LABORATORY Platelets 264 145 - 357 x10(3)/[facility] LABORATORY RDWSD 43.8 36.0 - 45.0 [facility] LABORATORY RDWCV 13.2 11.4 - 13.8 % [facility] LABORATORY MPV 10.7 7.6 - 12.9 [facility] LABORATORY nRBC % Auto 0.0 % [facility] LABORATORY nRBC Abs Auto 0.000 0.000 - 0.000 x10(3)/[facility] LABORATORY Specimen Anatomical Collection Method Collection Time Receive d Time (Source) Location / / Volume Laterality Blood 02/01/2022 4:00 AM 4:11 EDT AM EDT Resulting Agency Comment Spec In Lab Beck Sanz MD HEMATOLOGY ORDERABLES Performing Organization Address City/State/[place] [address] (ABNORMAL) Differential, Automated (02/01/2022 1:02 AM EDT) Patholo gist Method Time Signature Neutrophils % 73.9 % [facility] LABORATORY Neutr Abs (ANC) 30.91 (H) 1.70 - JOSH MANDO 6.10 [facility] x10(3)/[facility] LABORATORY Lymphocytes % 7.5 % [facility] LABORATORY Lymphocytes Abs 3.1 0.9 - 3.2 [facility] x10(3)/[facility] LABORATORY Monocytes % 7.7 % [facility] LABORATORY Monocyte Abs 3.2 (H) 0.3 - 0.9 [facility] x10(3)/[facility] LABORATORY Eosinophils % 0.5 % [facility] LABORATORY Eosinophils Abs 0.2 0.0 - 0.4 [facility] x10(3)/[facility] LABORATORY Basophils % 0.4 % [facility] LABORATORY Basophils Abs 0.2 (H) 0.0 - 0.1 [facility] x10(3)/[facility] LABORATORY Immature Gran % 10.00 % [facility] LABORATORY Comment: Immature granulocytes(IG's)percentage an d absolute count will include metamyelocytes, myelocytes, and promyelo cytes. Blood smears from CBCs yielding IG's will be scanned manually for concor dance. If this scan disagrees with the automated IG or if promyelocytes are not ed, a manual differential will be performed. Gemini Gran Abs 4.18 (H) 0.00 - 0.04 x10(3)/[facility] LABORATORY Specimen Anatomical Collection Method Collection Time Receive d Time (Source) Location / / Volume Laterality Blood 02/01/2022 1:02 AM 2 1:13 EDT AM EDT Resulting Agency Comment Spec In Lab Dimas Hernandez MD HEMATOLOGY ORDERABLES Performing Organization Address City/State/[place] [address] (ABNORMAL) Hemogram (02/01/2022 1:02 AM EDT) P athologist Signature WBC 41.8 4.0 - 9.5 [facility] (Critical) x10(3)/[facility] LABORATORY Comment: This result has been called to PEPE SORENSON by Nicki Bazzi on 02 01 2022 at 0132, and has been read back. RBC 2.23 (L) 4.58 - 5.54 x10(6)/[facility] LABORATORY Hemoglobin 7.2 (L) 13.7 - 16.5 g/dL [facility] LABORATORY Hematocrit 20.6 (L) 40.5 - 48.5 % [facility] LABORATORY MCV 92.4 82.9 - 93.1 fL [facility] LABORATORY MCH 32.3 (H) 27.5 - 32.1 pg [facility] LABORATORY MCHC 35.0 32.0 - 35.7 g/dL [facility] LABORATORY Platelets 252 145 - 357 x10(3)/[facility] LABORATORY RDWSD 43.6 36.0 - 45.0 [facility] LABORATORY RDWCV 13.3 11.4 - 13.8 % [facility] LABORATORY MPV 10.8 7.6 - 12.9 [facility] LABORATORY nRBC % Auto 0.0 % [facility] LABORATORY nRBC Abs Auto 0.000 0.000 - 0.000 x10(3)/[facility] LABORATORY Specimen Anatomical Collection Method Collection Time Receive d Time (Source) Location / / Volume Laterality Blood 02/01/2022 1:02 AM 2 1:13 EDT AM EDT Resulting Agency Comment Spec In Lab Dimas Hernandez MD HEMATOLOGY ORDERABLES Performing Organization Address City/State/[place] [address] (ABNORMAL) Calcium Ionized Whole Blood, HONORIO (02/01/2022 1:02 AM EDT) Analysis Performed At Patho logist Time Signature pH Honorio 7.42 7.32 - [facility] 7.42 [facility] LABORATORY ICa Whole 1.09 (L) 1.15 - [facility] Blood 1.33 [facility] mmol/L HOSPITAL LABORATORY Comment: [...] Organization Address City/State/[place] [address] (ABNORMAL) Basic Metabolic Panel (non-fasting) (02/01/2022 1:02 AM EDT) athologist Signature Glucose Lvl 125 65 - 199 [facility] mg/dL [facility] LABORATORY Comment: Diabetes: >=200 mg/dL plus symp toms BUN 50 (H) 10 - 20 mg/dL [facility] LABORATORY Creatinine 3.91 (H) 0.80 - 1.50 mg/dL [facility] LABORATORY Sodium 127 (L) 135 - 145 mmol/L [facility] LABORATORY Potassium 5.2 (H) 3.5 - 5.0 mmol/L [facility] LABORATORY Comment: Please note: ??Patients with WBC >100,00 0 may have falsely elevated Potassium levels. ??For accurate Potassium quantif ication in these patients send serum separator tube (gold top) for subsequent determinations. ??Contact the Clinical Chemistry Laboratory if there are any qu estions. Chloride 97 (L) 98 - 107 mmol/L [facility] LABORATORY CO2 21 (L) 22 - 31 mmol/L [facility] LABORATORY Anion Gap 9 5 - 15 mmol/L [facility] LABORATORY Calcium 7.6 (L) 8.5 - 10.5 mg/dL [facility] LABORATORY Estimated GFR 20 (L) >=60 mL/min/1.73 m?? [facility] LABORATORY Comment: This patient's estimated [...] Han DO CHEMISTRY ORDERABLES Performing Organization Address City/[facility]/ZIP Code Phon e Number [address] (ABNORMAL) Phosphorus (02/01/2022 1:02 AM EDT) P athologist Signature Phosphorus 4.9 (H) 2.5 - 4.5 [facility] LABORATORY Specimen Anatomical Collection Method Collection Time Receive d Time (Source) Location / / Volume Laterality Blood 02/01/2022 1:02 AM 2 1:13 EDT AM EDT Resulting Agency Comment Spec In Lab Gela Novak MD CHEMISTRY ORDERABLES Performing Organization Address City/[facility]/[place] [address] Magnesium (02/01/2022 1:02 AM EDT) P athologist Signature Magnesium 0.94 0.69 - 1.07 [facility] mmol/L [facility] LABORATORY Specimen Anatomical Collection Method Collection Time Receive d Time (Source) Location / / Volume Laterality Blood 02/01/2022 1:02 AM 2 1:13 EDT AM EDT Resulting Agency Comment Spec In Lab Gela Novak MD CHEMISTRY ORDERABLES Performing Organization Address City/[facility]/[place] [address] (ABNORMAL) Calcium Ionized Whole Blood, HONORIO (01/31/2022 10:30 PM EDT) Analysis Performed At Patho logist Time Signature pH Honorio 7.40 7.32 - [facility] 7.42 [facility] LABORATORY ICa Whole 1.02 (L) 1.15 - [facility] Blood 1.33 [facility] mmol/L [facility] LABORATORY Comment: Note: ??Total bilirubin higher than 20 m g/dL may lead to falsely low ionized calcium. Specimen Anatomical Collection Method Collection Time Receive d Time (Source) Location / / Volume Laterality Blood ARTERIAL LINE / 01/31/2022 10:30 02/01/20 22 Unknown PM EDT 10:36 PM EDT Resulting Agency Comment Spec In Lab Erika Retana MD CHEMISTRY ORDERABLES Performing Organization Address City/[facility]/ZIP [facility] [place] [address] POCT Glucose (01/31/2022 7:39 PM EDT) P athologist Signature POC Glucose 150 65 - 199 [facility] mg/dL [facility] LABORATORY Comment: Supplemental ranges: <140 mg/dL before meals <180 mg/dL all other times of the day Specimen Anatomical Collection Method Collection Time Receive d Time (Source) Location / / Volume Laterality Blood 01/31/2022 7:39 PM 7:39 EDT PM EDT Beck Sanz MD POINT OF CARE TEST ORDERABLE S Performing Organization Address City/[facility] [place] [address] (ABNORMAL) Calcium Ionized Whole Blood, HONORIO (01/31/2022 7:36 PM EDT) Analysis Performed At Patho logist Time Signature pH Honorio 7.44 (H) 7.32 - [facility] 7.42 [facility] LABORATORY ICa Whole 0.98 (L) 1.15 - [facility] Blood 1.33 [facility] mmol/L HOSPITAL LABORATORY Comment: Note: ??Total [...] Organization Address City/State/[place] [address] (ABNORMAL) Electrolytes panel (01/31/2022 4:54 PM EDT) athologist Signature Sodium 126 (L) 135 - [address] [facility] mmol/L [facility] LABORATORY Potassium 5.9 (H) 3.5 - 5.0 [facility] mmol/L [facility] LABORATORY Comment: Please note: ??Patients with WBC >100,00 0 may have falsely elevated Potassium levels. ??For accurate Potassium quantif ication in these patients send serum separator tube (gold top) for subsequent determinations. ??Contact the Clinical Chemistry Laboratory if there are any qu estions. Chloride 95 (L) 98 - 107 mmol/L [facility] LABORATORY CO2 20 (L) 22 - 31 mmol/L [facility] LABORATORY Anion Gap 11 5 - 15 mmol/L [facility] LABORATORY Specimen Anatomical Collection Method Collection Time Receive d Time (Source) Location / / Volume Laterality Blood 01/31/2022 4:54 PM 5:07 EDT PM EDT Resulting Agency Comment Spec In Lab Agnieszka López APRN CHEMISTRY ORDERABLES Performing Organization Address City/[facility]/[place] [address] POCT Glucose (01/31/2022 10:03 AM EDT) athologist Signature POC Glucose 108 65 - [address] [facility] mg/dL [facility] LABORATORY Comment: Supplemental ranges: <140 mg/dL before meals <180 mg/dL all other times of the day Specimen Anatomical Collection Method Collection Time Receive d Time (Source) Location / / Volume Laterality Blood 01/31/2022 10:03 01/31/2022 AM EDT 10:03 AM EDT Beck Sanz MD POINT OF CARE TEST ORDERABLE S Performing Organization Address City/[facility]/[place] [address] APTT (01/31/2022 8:05 AM EDT) athologist Signature PTT 36 25 - 37 sec [facility] LABORATORY Comment: The PTT is [...] Sanz MD HEMATOLOGY ORDERABLES Performing Organization Address City/[facility]/[place] [address] (ABNORMAL) Electrolytes panel (01/31/2022 6:10 AM EDT) athologist Signature Sodium 126 (L) 135 - 145 [facility] mmol/L [facility] LABORATORY Potassium 5.1 (H) 3.5 - 5.0 [facility] mmol/L [facility] LABORATORY Comment: Please note: ??Patients with WBC >100,00 0 may have falsely elevated Potassium levels. ??For accurate Potassium quantif ication in these patients send serum separator tube (gold top) for subsequent determinations. ??Contact the Clinical Chemistry Laboratory if there are any qu estions. Chloride 94 (L) 98 - 107 mmol/L [facility] LABORATORY CO2 22 22 - 31 mmol/L [facility] LABORATORY Anion Gap 10 5 - 15 mmol/L [facility] LABORATORY Specimen Anatomical Collection Method Collection Time Receive d Time (Source) Location / / Volume Laterality Blood 01/31/2022 6:10 AM 2 6:15 EDT AM EDT Resulting Agency Comment Spec In Lab Erika Retana MD CHEMISTRY ORDERABLES Performing Organization Address City/[facility]/[place] [address] POCT Glucose (01/31/2022 4:16 AM EDT) athologist Signature POC Glucose 94 65 - 199 [facility] mg/dL [facility] LABORATORY Comment: Supplemental ranges: <140 mg/dL before meals <180 mg/dL all other times of the day Specimen Anatomical Collection Method Collection Time Receive d Time (Source) Location / / Volume Laterality Blood 01/31/2022 4:16 AM 4:16 EDT AM EDT Beck Sanz MD POINT OF CARE TEST ORDERABLE S Performing Organization Address City/State/[place] [address] (ABNORMAL) BLOOD GAS 2 VENOUS (01/31/2022 12:43 AM EDT) Analysis Performed At Patho logist Time Signature pH Honorio 7.44 (H) 7.32 - [facility] 7.42 [facility] LABORATORY pCO2 Honorio 30 (L) 41 - 51 [facility] mmHg [facility] LABORATORY pO2 Honorio 34 25 - 40 [facility] LABORATORY HCO3 Honorio 20.2 mmol/L [facility] LABORATORY BE Honorio -4.0 mmol/L [facility] LABORATORY Hgb Blood Gas 10.1 (L) 13.7 - [facility] 16.5 g/dL [facility] LABORATORY O2HB Honorio 69.5 % [facility] LABORATORY COHB Honorio 0.1 % [facility] LABORATORY Comment: Nonsmokers: 0.5-1.5% COHB Smokers: Variable, but usually less than 10% Toxic: 20-30% COHB Lethal: Greater than 60% COHB METHB Honorio 0.3 <=1.5 % [facility] LABORATORY Na Whole Blood 120 (L) 135 - 145 mmol/L [facility] LABORATORY K Whole Blood 4.9 3.5 - 5.0 mmol/L [facility] LABORATORY Comment: Please note: Patients with WBC >100,000 may have falsely elevated Potassium levels. Contact the Clinical Chemistry L aboratory if there are any questions. ICa Whole Blood 1.05 (L) 1.15 - 1.33 mmol/L [facility] LABORATORY Comment: Note: ??Total bilirubin higher than 20 m g/dL may lead to falsely low ionized calcium. CL Whole Blood 95 (L) 98 - 107 mmol/L [facility] LABORATORY Gluc Whole Bld 110 65 - 199 mg/dL [facility] LABORATORY Comment: Diabetes: >=200 mg/dL plus symp toms Lactate WB 1.0 0.5 - 2.2 mmol/L [facility] LABORATORY BGas Source Venous [facility] LABORATORY Specimen Anatomical Collection Method Collection Time Receive d Time (Source) Location / / Volume Laterality Blood 01/31/2022 12:43 01/31/2022 AM EDT 12:43 AM EDT Beck Sanz MD CHEMISTRY ORDERABLES Performing Organization Address City/State/[place] [address] (ABNORMAL) Differential, Automated (01/31/2022 12:42 AM EDT) [facility] gist Method Time Signature Neutrophils % 65.8 % [facility] LABORATORY Neutr Abs (ANC) 23.59 (H) 1.70 - [facility] 6.10 [facility] x10(3)/[facility] LABORATORY Lymphocytes % 8.0 % [facility] LABORATORY Lymphocytes Abs 2.9 0.9 - 3.2 [facility] x10(3)[facility] LABORATORY Monocytes % 9.6 % [facility] LABORATORY Monocyte Abs 3.4 (H) 0.3 - 0.9 [facility] x10(3)[facility] LABORATORY Eosinophils % 0.9 % [facility] LABORATORY Eosinophils Abs 0.3 0.0 - 0.4 [facility] x10(3)[facility] LABORATORY Basophils % 0.5 % [facility] LABORATORY Basophils Abs 0.2 (H) 0.0 - 0.1 [facility] x10(3)[facility] LABORATORY Immature Gran % 15.20 % [facility] LABORATORY Comment: Immature granulocytes(IG's)percentage an d absolute count will include metamyelocytes, myelocytes, and promyelo cytes. Blood smears from CBCs yielding IG's will be scanned manually for concor dance. If this scan disagrees with the automated IG or if promyelocytes are not ed, a manual differential will be performed. Gemini Gran Abs 5.46 (H) 0.00 - 0.04 x10(3)/[facility] LABORATORY Specimen Anatomical Collection Method Collection Time Receive d Time (Source) Location / / Volume Laterality Blood 01/31/2022 12:42 01/31/2022 AM EDT 12:49 AM EDT Resulting Agency Comment Spec In Lab Cristina Hillman [employer] HEMATOLOGY ORDERABLES Performing Organization Address City/State/[place] [address] (ABNORMAL) Hemogram (01/31/2022 12:42 AM EDT) athologist Signature WBC 35.8 4.0 - 9.5 [facility] (Critical) x10(3)/[facility] LABORATORY Comment: This result has been called to PAPITO Boss by Reymundo De Luna on 01 31 2022 at 0103, and has been read back. RBC 2.84 (L) 4.58 - 5.54 x10(6)/[facility] LABORATORY Hemoglobin 9.1 (L) 13.7 - 16.5 g/dL [facility] LABORATORY Hematocrit 25.9 (L) 40.5 - 48.5 % [facility] LABORATORY MCV 91.2 82.9 - 93.1 fL [facility] LABORATORY MCH 32.0 27.5 - 32.1 pg [facility] LABORATORY MCHC 35.1 32.0 - 35.7 g/dL [facility] LABORATORY Platelets 195 145 - 357 x10(3)/[facility] LABORATORY RDWSD 42.7 36.0 - 45.0 [facility] LABORATORY RDWCV 13.2 11.4 - 13.8 % [facility] LABORATORY MPV 10.6 7.6 - 12.9 [facility] LABORATORY nRBC % Auto 0.0 % [facility] LABORATORY nRBC Abs Auto 0.000 0.000 - 0.000 x10(3)/mcL [facility] LABORATORY Specimen Anatomical Collection Method Collection Time Receive d Time (Source) Location / / Volume Laterality Blood 01/31/2022 12:42 01/31/2022 AM EDT 12:49 AM EDT Resulting Agency Comment Spec In Lab Cristina Hillman APRN HEMATOLOGY ORDERABLES Performing Organization Address City/State/ZIP Code Phon e Number [address] (ABNORMAL) Creatinine (01/31/2022 12:42 AM EDT) Analysis Performed At Patho logist Time Signature Creatinine 4.01 (H) 0.80 - JOSH MANDO 1.50 mg/dL [facility] LABORATORY Estimated GFR 20 (L) >=60 JOSH GILMORE mL/min/1.7 [facility] 3 ?? [facility] LABORATORY Comment: This patient's estimated GFR was [...] City/State/ZIP Code Phon e Number [place] [id number]OS[address] LAB[address]ORY Drive (ABNORMAL) BUN (01/31/2022 12:42 AM EDT) P athologist Signature BUN 50 (H) 10 - 20 JOSH MANDO mg/dL [facility] LABORATORY Specimen Anatomical Collection Method Collection Time Receive d Time (Source) Location / / Volume Laterality Blood 01/31/2022 12:42 01/31/2022 AM EDT 12:49 AM EDT Resulting Agency Comment Spec In Lab Beck Sanz MD CHEMISTRY ORDERABLES Performing Organization Address City/[facility]/[place] [address] (ABNORMAL) Electrolytes panel (01/31/2022 12:42 AM EDT) P athologist Signature Sodium 123 (L) 135 - 145 [facility] mmol/L [facility] LABORATORY Potassium 5.1 (H) 3.5 - 5.0 [facility] mmol/L [facility] LABORATORY Comment: Please note: ??Patients with WBC >100,00 0 may have falsely elevated Potassium levels. ??For accurate Potassium quantif ication in these patients send serum separator tube (gold top) for subsequent determinations. ??Contact the Clinical Chemistry Laboratory if there are any qu estions. Chloride 94 (L) 98 - 107 mmol/L [facility] LABORATORY CO2 21 (L) 22 - 31 mmol/L [facility] LABORATORY Anion Gap 8 5 - 15 mmol/L [facility] LABORATORY Specimen Anatomical Collection Method Collection Time Receive d Time (Source) Location / / Volume Laterality Blood 01/31/2022 12:42 01/31/2022 AM EDT 12:49 AM EDT Resulting Agency Comment Spec In Lab Erika Retana MD CHEMISTRY ORDERABLES Performing Organization Address City/[facility]/[place] [address] (ABNORMAL) Calcium Ionized Whole Blood, HONORIO (01/30/2022 8:17 PM EDT) Analysis Performed At Patho logist Time Signature pH Honorio 7.42 7.32 - [facility] 7.42 [facility] LABORATORY ICa Whole 0.99 (L) 1.15 - [facility] Blood 1.33 [facility] mmol/[facility] LABORATORY Comment: Note: ??Total bilirubin higher than 20 m g/dL may lead to falsely low ionized calcium. Specimen Anatomical Collection Method Collection Time Receive d Time (Source) Location / / Volume Laterality Blood ARTERIAL LINE / 01/30/2022 8:17 PM 2021 8:24 Unknown EDT PM EDT Resulting Agency Comment Spec In Lab Erika Retana MD CHEMISTRY ORDERABLES Performing Organization Address City/[facility]/ZIP Code Phon e Number [address] APTT (01/30/2022 8:17 PM EDT) athologist Signature PTT 30 25 - 37 sec [facility] LABORATORY Comment: The PTT is NOT appropriate for heparin m onitoring. Use the Anti-Xa level for heparin monitoring (HEP UFH) or LMWH mon itoring (HEP LMW). A PTT less than 37 seconds generally indicates adequate hem ostasis. Specimen Anatomical Collection Method Collection Time Receive d Time (Source) Location / / Volume Laterality Blood 01/30/2022 8:17 PM 8:24 EDT PM EDT Resulting Agency Comment Spec In Lab Beck Sanz MD HEMATOLOGY ORDERABLES Performing Organization Address City/[facility]/[place] [address] POCT Glucose (01/30/2022 8:00 PM EDT) athologist Signature POC Glucose 144 65 - 199 [facility] mg/dL [facility] LABORATORY Comment: Supplemental ranges: <140 mg/dL before meals <180 mg/dL all other times of the day Specimen Anatomical Collection Method Collection Time Receive d Time (Source) Location / / Volume Laterality Blood 01/30/2022 8:00 PM 8:00 EDT PM EDT Beck Sanz MD POINT OF CARE TEST ORDERABLE S Performing Organization Address City/[facility]/ZIP [facility] [place] [address] Chest Abdomen Pelvis [...] who have questions please contact the health memory care program director that requested your imaging first. ? Electronically signed by: Melita Mills MD, [facility] ([phone]), at 01/30/2022 3:20 PM Narrative 01/30/2022 3:20 [...] ho have questions please contact the health memory care program director that requested your imaging first. Agnieszka López APRN IMG CT ORDERABLES (ABNORMAL) Electrolytes panel (01/30/2022 12:23 PM EDT) athologist Signature Sodium 122 (L) 135 - 145 [facility] mmol/L [facility] LABORATORY Potassium 5.2 (H) 3.5 - 5.0 [facility] mmol/L [facility] LABORATORY Comment: Please note: ??Patients with WBC >100,00 0 may have falsely elevated Potassium levels. ??For accurate Potassium quantif ication in these patients send serum separator tube (gold top) for subsequent determinations. ??Contact the Clinical Chemistry Laboratory if there are any qu estions. Chloride 92 (L) 98 - 107 mmol/L [facility] LABORATORY CO2 21 (L) 22 - 31 mmol/L [facility] LABORATORY Anion Gap 9 5 - 15 mmol/L [facility] LABORATORY Specimen Anatomical Collection Method Collection Time Receive d Time (Source) Location / / Volume Laterality Blood 01/30/2022 12:23 01/30/2022 PM EDT 12:33 PM EDT Resulting Agency Comment Spec In Lab Agnieszka López APRN CHEMISTRY ORDERABLES Performing Organization Address City/State/[place] [address] POCT Glucose (01/30/2022 10:42 AM EDT) athologist Signature POC Glucose 140 65 - 199 [facility] mg/dL [facility] LABORATORY Comment: Supplemental ranges: <140 mg/dL before meals <180 mg/dL all other times of the day Specimen Anatomical Collection Method Collection Time Receive d Time (Source) Location / / Volume Laterality Blood 01/30/2022 10:42 01/30/2022 AM EDT 10:42 AM EDT Beck Sanz MD POINT OF CARE TEST ORDERABLE S Performing Organization Address City/[facility]/[place] [address] EKG 12 Lead (01/30/2022 9:18 AM EDT) Component Value Ref Range Test Analysis Performed Pathologis t Method Time At Signature Ventricular rate 111 BPM MUSE SYSTEM Atrial Rate 111 BPM MUSE SYSTEM P-R Interval 136 ms MUSE SYSTEM QRS Duration 84 ms MUSE SYSTEM Q-T Interval 308 ms MUSE SYSTEM QTC Calculated 418 ms MUSE SYSTEM (Bezet) Calculated P Dexter 13 degrees MUSE SYSTEM Calculated R Dexter 31 degrees MUSE SYSTEM Calculated T Dexter -8 degrees MUSE SYSTEM INTERPRETATION Sinus tachycardia MUSE SY STEM Nonspecific T wave abnormality Abnormal ECG When compared with ECG of 23-JAN-2022 00:46, heart rate has slowed Confirmed by Clem Guo ([id number]) on 02/01/2022 1:23:54 PM Specimen Anatomical Collection Method Collection Time Receive d Time (Source) Location / / Volume Laterality 01/30/2022 9:18 AM 2 1:23 EDT PM EDT Anthony Harvey BALL MILL OPERATOR ECG ORDERABLES Performing Organization Address City/[facility]/ZIP Code Phon e Number MUSE SYSTEM POCT Glucose (01/30/2022 4:21 AM EDT) P athologist Signature POC Glucose 119 65 - 199 [facility] mg/dL [facility] LABORATORY Comment: Supplemental ranges: <140 mg/dL before meals <180 mg/dL all other times of the day Specimen Anatomical Collection Method Collection Time Receive d Time (Source) Location / / Volume Laterality Blood 01/30/2022 4:21 AM 2 4:21 EDT AM EDT Beck Sanz MD POINT OF CARE TEST ORDERABLE S Performing Organization Address City/[facility]/[place] [address] Scan, Peripheral Blood (01/30/2022 4:10 AM EDT) Patholo gist Method Time Signature Plat Estimate Normal [facility] LABORATORY RBC Morphology Normal [facility] LABORATORY Toxic Present [facility] LABORATORY Dohle Bodies Present [facility] LABORATORY Specimen Anatomical Collection Method Collection Time Receive d Time (Source) Location / / Volume Laterality Blood 01/30/2022 4:10 AM 4:36 EDT AM EDT Resulting Agency Comment Spec In Lab Cristina Hillman BALL MILL OPERATOR HEMATOLOGY ORDERABLES Performing Organization Address City/State/[place] [address] (ABNORMAL) Differential, Automated (01/30/2022 4:10 AM EDT) [facility] gist Method Time Signature Neutrophils % 60.7 % [facility] LABORATORY Neutr Abs (ANC) 23.73 (H) 1.70 - [facility] 6.10 [facility] x10(3)/[facility] LABORATORY Lymphocytes % 7.2 % [facility] LABORATORY Lymphocytes Abs 2.8 0.9 - 3.2 [facility] x10(3)/[facility] LABORATORY Monocytes % 9.3 % [facility] LABORATORY Monocyte Abs 3.6 (H) 0.3 - 0.9 [facility] x10(3)/[facility] LABORATORY Eosinophils % 0.4 % [facility] LABORATORY Eosinophils Abs 0.2 0.0 - 0.4 [facility] x10(3)/[facility] LABORATORY Basophils % 0.2 % [facility] LABORATORY Basophils Abs 0.1 0.0 - 0.1 [facility] x10(3)/[facility] LABORATORY Immature Gran % 22.20 % [facility] LABORATORY Comment: Immature granulocytes(IG's)percentage an d absolute count will include metamyelocytes, myelocytes, and promyelo cytes. Blood smears from CBCs yielding IG's will be scanned manually for concor dance. If this scan disagrees with the automated IG or if promyelocytes are not ed, a manual differential will be performed. Gemini Gran Abs 8.67 (H) 0.00 - 0.04 x10(3)/[facility] LABORATORY Specimen Anatomical Collection Method Collection Time Receive d Time (Source) Location / / Volume Laterality Blood 01/30/2022 4:10 AM 2 4:36 EDT AM EDT Resulting Agency Comment Spec In Lab Jaquelinashley Huang Rafy AVENDAÑO HEMATOLOGY ORDERABLES Performing Organization Address City/State/[place] [address] (ABNORMAL) Hemogram (01/30/2022 4:10 AM EDT) P athologist Signature WBC 39.1 4.0 - 9.5 [facility] (Critical) x10(3)/[facility] LABORATORY Comment: This result has been called to BECK GUILLEN by Shelli Sauceda on 01 30 2022 at 0448, and has been read back. RBC 3.18 (L) 4.58 - 5.54 x10(6)/[facility] LABORATORY Hemoglobin 10.5 (L) 13.7 - 16.5 g/dL [facility] LABORATORY Hematocrit 29.3 (L) 40.5 - 48.5 % [facility] LABORATORY MCV 92.1 82.9 - 93.1 fL [facility] LABORATORY MCH 33.0 (H) 27.5 - 32.1 pg [facility] LABORATORY MCHC 35.8 (H) 32.0 - 35.7 g/dL [facility] LABORATORY Platelets 195 145 - 357 x10(3)/[facility] LABORATORY RDWSD 43.3 36.0 - 45.0 [facility] LABORATORY RDWCV 13.0 11.4 - 13.8 % [facility] LABORATORY MPV 10.6 7.6 - 12.9 fL [facility] LABORATORY nRBC % Auto 0.0 % [facility] LABORATORY nRBC Abs Auto 0.000 0.000 - 0.000 x10(3)/[facility] LABORATORY Specimen Anatomical Collection Method Collection Time Receive d Time (Source) Location / / Volume Laterality Blood 01/30/2022 4:10 AM 4:36 EDT AM EDT Resulting Agency Comment Spec In Lab Cristina Hillman APRN HEMATOLOGY ORDERABLES Performing Organization Address City/State/[place] [address] (ABNORMAL) Blood Gas Venous ([facility]) (01/30/2022 4:10 AM EDT) Analysis Performed At Patho logist Time Signature pH Honorio 7.43 (H) 7.32 - [facility] 7.42 [facility] LABORATORY pCO2 Honorio 34 (L) 41 - 51 [facility] LABORATORY pO2 Honorio 35 25 - 40 [facility] LABORATORY HCO3 Honorio 22.2 mmol/L [facility] LABORATORY BE Honorio -2.2 mmol/L [facility] LABORATORY Hgb Blood Gas 11.6 (L) 13.7 - [facility] 16.5 g/dL [facility] LABORATORY O2HB Honorio 72.9 % [facility] LABORATORY COHB Honorio 1.0 % [facility] LABORATORY Comment: Nonsmokers: 0.5-1.5% COHB Smokers: Variable, but usually less than 10% Toxic: 20-30% COHB Lethal: Greater than 60% COHB METHB Honorio 0.3 <=1.5 % [facility] LABORATORY Na Whole Blood 123 (L) 135 - 145 mmol/L [facility] LABORATORY K Whole Blood 5.1 (H) 3.5 - 5.0 mmol/L [facility] LABORATORY Comment: Please note: Patients with WBC >100,000 may have falsely elevated Potassium levels. Contact the Clinical Chemistry L aboratory if there are any questions. ICa Whole Blood 1.05 (L) 1.15 - 1.33 mmol/L [facility] LABORATORY Comment: Note: ??Total bilirubin higher than 20 m g/dL may lead to falsely low ionized calcium. CL Whole Blood 97 (L) 98 - 107 mmol/L [facility] LABORATORY Gluc Whole Bld 142 65 - 199 mg/dL [facility] LABORATORY Comment: Diabetes: >=200 mg/dL plus symp toms Lactate WB 1.2 0.5 - 2.2 mmol/L [facility] LABORATORY BGas Source Venous [facility] LABORATORY Specimen Anatomical Collection Method Collection Time Receive d Time (Source) Location / / Volume Laterality Blood Venous Draw / 01/30/2022 4:10 AM 01/31/20 22 4:31 Unknown EDT AM EDT Resulting Agency Comment Spec In Lab Angelina Reynoso MD CHEMISTRY ORDERABLES Performing Organization Address City/[facility]/[place] [address] (ABNORMAL) CK (01/30/2022 4:10 AM EDT) athologist Signature CK, Total 5,685 (H) 0 - 200 [facility] LABORATORY Specimen Anatomical Collection Method Collection Time Receive d Time (Source) Location / / Volume Laterality Blood 01/30/2022 4:10 AM 2 4:36 EDT AM EDT Resulting Agency Comment Spec In Lab Cristina Hillman APRN CHEMISTRY ORDERABLES Performing Organization Address City/[facility]/[place] [address] (ABNORMAL) Basic Metabolic Panel (non-fasting) (01/30/2022 4:10 AM EDT) athologist Signature Glucose Lvl 146 65 - 199 [facility] mg/dL [facility] LABORATORY Comment: Diabetes: >=200 mg/dL plus symp toms BUN 43 (H) 10 - 20 mg/dL [facility] LABORATORY Creatinine 3.71 (H) 0.80 - 1.50 mg/dL [facility] LABORATORY Sodium 127 (L) 135 - 145 mmol/L [facility] LABORATORY Potassium 5.3 (H) 3.5 - 5.0 mmol/L [facility] LABORATORY Comment: Please note: ??Patients with WBC >100,00 0 may have falsely elevated Potassium levels. ??For accurate Potassium quantif ication in these patients send serum separator tube (gold top) for subsequent determinations. ??Contact the Clinical Chemistry Laboratory if there are any qu estions. Chloride 96 (L) 98 - 107 mmol/L [facility] LABORATORY CO2 22 22 - 31 mmol/L [facility] LABORATORY Anion Gap 9 5 - 15 mmol/L [facility] LABORATORY Calcium 7.5 (L) 8.5 - 10.5 mg/dL [facility] LABORATORY Estimated GFR 22 (L) >=60 mL/min/1.73 m?? [facility] LABORATORY Comment: This patient's estimated [...] Han DO CHEMISTRY ORDERABLES Performing Organization Address City/[facility]/ZIP Code Phon e Number [address] Phosphorus (01/30/2022 4:10 AM EDT) P athologist Signature Phosphorus 4.0 2.5 - 4.5 [facility] mg/dL [facility] LABORATORY Specimen Anatomical Collection Method Collection Time Receive d Time (Source) Location / / Volume Laterality Blood 01/30/2022 4:10 AM 2 4:36 EDT AM EDT Resulting Agency Comment Spec In Lab Gela Novak MD CHEMISTRY ORDERABLES Performing Organization Address City/[facility]/ZIP Code Phon e Number [address] Magnesium (01/30/2022 4:10 AM EDT) athologist Signature Magnesium 0.92 0.69 - 1.07 [facility] mmol/L [facility] LABORATORY Specimen Anatomical Collection Method Collection Time Receive d Time (Source) Location / / Volume Laterality Blood 01/30/2022 4:10 AM 2 4:36 EDT AM EDT Resulting Agency Comment Spec In Lab Gela Novak MD CHEMISTRY ORDERABLES Performing Organization Address City/State/ZIP Code Phon e Number [address] POCT Glucose (01/30/2022 12:07 AM EDT) athologist Signature POC Glucose 115 65 - 199 [facility] mg/dL [facility] LABORATORY Comment: Supplemental ranges: <140 mg/dL before meals <180 mg/dL all other times of the day Specimen Anatomical Collection Method Collection Time Receive d Time (Source) Location / / Volume Laterality Blood 01/30/2022 12:07 01/30/2022 AM EDT 12:07 AM EDT Bekc Sanz MD POINT OF CARE TEST ORDERABLE S Performing Organization Address City/[facility]/[place] [address] POCT Glucose (01/29/2022 9:40 PM EDT) athologist Signature POC Glucose 128 65 - 199 [facility] mg/dL [facility] LABORATORY Comment: Supplemental ranges: <140 mg/dL before meals <180 mg/dL all other times of the day Specimen Anatomical Collection Method Collection Time Receive d Time (Source) Location / / Volume Laterality Blood 01/29/2022 9:40 PM 2 9:40 EDT PM EDT Beck Sanz MD POINT OF CARE TEST ORDERABLE S Performing Organization Address City/[facility]/ZIP Code Phon e Number [address] (ABNORMAL) Phosphorus (01/29/2022 9:35 PM EDT) athologist Signature Phosphorus 4.9 (H) 2.5 - 4.5 [facility] mg/dL [facility] LABORATORY Specimen Anatomical Collection Method Collection Time Receive d Time (Source) Location / / Volume Laterality Blood 01/29/2022 9:35 PM 2 9:46 EDT PM EDT Resulting Agency Comment Spec In Lab Angelina Reynoso MD CHEMISTRY ORDERABLES Performing Organization Address City/[facility]/ZIP Code Phon e Number [address] Scan, Peripheral Blood (01/29/2022 2:55 AM EDT) P athologist Signature Plat Estimate Normal [facility] LABORATORY RBC Morphology Normal [facility] LABORATORY Specimen Anatomical Collection Method Collection Time Receive d Time (Source) Location / / Volume Laterality Blood 01/29/2022 2:55 AM 2 3:06 EDT AM EDT Resulting Agency Comment Spec In Lab Cristina Hillman APRN HEMATOLOGY ORDERABLES Performing Organization Address City/[facility] [place] [address] (ABNORMAL) Differential, Automated (01/29/2022 2:55 AM EDT) Patholo gist Method Time Signature Neutrophils % 47.3 % [facility] LABORATORY Neutr Abs (ANC) 13.86 (H) 1.70 - [facility] 6.10 [facility] x10(3)/[facility] LABORATORY Lymphocytes % 8.8 % [facility] LABORATORY Lymphocytes Abs 2.6 0.9 - 3.2 [facility] x10(3)/[facility] LABORATORY Monocytes % 9.4 % [facility] LABORATORY Monocyte Abs 2.8 (H) 0.3 - 0.9 [facility] x10(3)/[facility] LABORATORY Eosinophils % 1.1 % [facility] LABORATORY Eosinophils Abs 0.3 0.0 - 0.4 [facility] x10(3)/[facility] LABORATORY Basophils % 0.2 % [facility] LABORATORY Basophils Abs 0.1 0.0 - 0.1 [facility] x10(3)/[facility] LABORATORY Immature Gran % 33.20 % [facility] LABORATORY Comment: Immature granulocytes(IG's)percentage an d absolute count will include metamyelocytes, myelocytes, and promyelo cytes. Blood smears from CBCs yielding IG's will be scanned manually for concor dance. If this scan disagrees with the automated IG or if promyelocytes are not ed, a manual differential will be performed. Gemini Gran Abs 9.75 (H) 0.00 - 0.04 x10(3)/[facility] LABORATORY Specimen Anatomical Collection Method Collection Time Receive d Time (Source) Location / / Volume Laterality Blood 01/29/2022 2:55 AM 2 3:06 EDT AM EDT Resulting Agency Comment Spec In Lab Cristina Hillman APRN HEMATOLOGY ORDERABLES Performing Organization Address City/State/ZIP Code Phon e Number [place] [id number] (ABNORMAL) Hemogram (01/29/2022 2:55 AM EDT) Analysis Performed At Patho logist Time Signature WBC 29.4 (H) 4.0 - 9.5 [facility] x10(3)/[facility] LABORATORY RBC 3.34 (L) 4.58 [facility] 5.54 [facility] x10(6)/[facility] LABORATORY Hemoglobin 10.7 (L) 13.7 [facility] 16.5 g/dL [facility] LABORATORY Hematocrit 31.3 (L) 40.5 [facility] 48.5 % [facility] LABORATORY MCV 93.7 (H) 82.9 [facility] 93.1 [facility] LABORATORY MCH 32.0 27.5 [facility] 32.1 pg [facility] LABORATORY MCHC 34.2 32.0 - [facility] 35.7 g/dL [facility] LABORATORY Platelets 148 145 - 357 [facility] x10(3)/[facility] LABORATORY RDWSD 44.0 36.0 - [facility] 45.0 [facility] RDWCV 13.0 11.4 [facility] 13.8 % [facility] LABORATORY MPV 10.7 7.6 - 12.9 [facility] LABORATORY nRBC % Auto 0.0 % [facility] LABORATORY nRBC Abs Auto 0.000 0.000 - [facility] 0.000 [facility] x10(3)/[facility] LABORATORY Specimen Anatomical Collection Method Collection Time Receive d Time (Source) Location / / Volume Laterality Blood 01/29/2022 2:55 AM 2 3:06 EDT AM EDT Resulting Agency Comment Spec In Lab Gemma B Pentland BALL MILL OPERATOR HEMATOLOGY ORDERABLES Performing Organization Address City/State/ZIP Code Phon e Number [address] (ABNORMAL) CK (01/29/2022 2:55 AM EDT) athologist [facility] CK, Total 7,723 (H) 0 - 200 [facility] unit/L [facility] LABORATORY Comment: result rechecked-KS Specimen Anatomical Collection Method Collection Time Receive d Time (Source) Location / / Volume Laterality Blood 01/29/2022 2:55 AM 2 3:06 EDT AM EDT Resulting Agency Comment Spec In Lab Gemma B Pentland BALL MILL OPERATOR CHEMISTRY ORDERABLES Performing Organization Address City/State/ZIP Code Phon e Number [address] (ABNORMAL) Basic Metabolic Panel (non-fasting) (01/29/2022 2:55 AM EDT) athologist [facility] Glucose Lvl 124 65 - 199 [facility] mg/dL [facility] LABORATORY Comment: Diabetes: >=200 mg/dL plus symp toms BUN 34 (H) 10 - 20 mg/dL [facility] LABORATORY Comment: result rechecked-KS Creatinine 3.22 (H) 0.80 - 1.50 mg/dL [facility] LABORATORY Comment: result rechecked-KS Sodium 130 (L) 135 - 145 mmol/L [facility] LABORATORY Potassium 4.8 3.5 - 5.0 mmol/L [facility] LABORATORY Comment: Please note: ??Patients with WBC >100,00 0 may have falsely elevated Potassium levels. ??For accurate Potassium quantif ication in these patients send serum separator tube (gold top) for subsequent determinations. ??Contact the Clinical Chemistry Laboratory if there are any qu estions. Chloride 98 98 - 107 mmol/L [facility] LABORATORY CO2 24 22 - 31 mmol/L [facility] LABORATORY Anion Gap 8 5 - 15 mmol/L [facility] LABORATORY Calcium 7.6 (L) 8.5 - 10.5 mg/dL [facility] LABORATORY Estimated GFR 26 (L) >=60 mL/min/1.73 m?? [facility] LABORATORY Comment: This patient's estimated [...] Han DO CHEMISTRY ORDERABLES Performing Organization Address City/State/[facility] [place] [address] Phosphorus (01/29/2022 2:55 AM EDT) P athologist Signature Phosphorus 3.2 2.5 - 4.5 [facility] mg/dL [facility] LABORATORY Specimen Anatomical Collection Method Collection Time Receive d Time (Source) Location / / Volume Laterality Blood 01/29/2022 2:55 AM 2 3:06 EDT AM EDT Resulting Agency Comment Spec In Lab Gela Novak MD CHEMISTRY ORDERABLES Performing Organization Address City/State/ZIP Code Phon e Number [address] Magnesium (01/29/2022 2:55 AM EDT) P athologist Signature Magnesium 0.85 0.69 - 1.07 [facility] mmol/L [facility] LABORATORY Specimen Anatomical Collection Method Collection Time Receive d Time (Source) Location / / Volume Laterality Blood 01/29/2022 2:55 AM 2 3:06 EDT AM EDT Resulting Agency Comment Spec In Lab Gela Novak MD CHEMISTRY ORDERABLES Performing Organization Address City/State/ZIP Code Phon e Number [address] (ABNORMAL) Blood Gas Venous ([facility]) (01/28/2022 1:25 PM EDT) Analysis Performed At Patho logist Time Signature pH Honorio 7.40 7.32 - [facility] 7.42 [facility] LABORATORY pCO2 Honorio 44 41 - 51 [facility] LABORATORY pO2 Honorio 37 25 - 40 [facility] LABORATORY HCO3 Honorio 26.5 mmol/L [facility] LABORATORY BE Honorio 1.6 mmol/L [facility] LABORATORY Hgb Blood Gas 12.1 (L) 13.7 - [facility] 16.5 g/dL [facility] LABORATORY O2HB Honorio 71.4 % [facility] LABORATORY COHB Honorio 0.7 % [facility] LABORATORY Comment: Nonsmokers: 0.5-1.5% COHB Smokers: Variable, but usually less than 10% Toxic: 20-30% COHB Lethal: Greater than 60% COHB METHB Honorio 0.1 <=1.5 % [facility] LABORATORY Na Whole Blood 130 (L) 135 - 145 mmol/L [facility] LABORATORY K Whole Blood 4.6 3.5 - 5.0 mmol/L [facility] LABORATORY Comment: Please note: Patients with WBC >100,000 may have falsely elevated Potassium levels. Contact the Clinical Chemistry L aboratory if there are any questions. ICa Whole Blood 1.16 1.15 - 1.33 mmol/L [facility] LABORATORY Comment: Note: ??Total bilirubin higher than 20 m g/dL may lead to falsely low ionized calcium. CL Whole Blood 103 98 - 107 mmol/L [facility] LABORATORY Gluc Whole Bld 130 65 - 199 mg/dL [facility] LABORATORY Comment: Diabetes: >=200 mg/dL plus symp toms Lactate WB 1.0 0.5 - 2.2 mmol/L [facility] LABORATORY BGas Source Venous [facility] LABORATORY Temp Honorio 37.3 Celsius [facility] LABORATORY Specimen Anatomical Collection Method Collection Time Receive d Time (Source) Location / / Volume Laterality Blood Venous Draw / 01/28/2022 1:25 PM 01/29/20 1:36 Unknown EDT PM EDT Resulting Agency Comment Spec In Lab Angelina Reynoso MD CHEMISTRY ORDERABLES Performing Organization Address City/State/[place] [address] (ABNORMAL) Blood Gas Venous ([facility]) (01/28/2022 6:20 AM EDT) Analysis Performed At Patho logist Time Signature pH Honorio 7.41 7.32 - [facility] 7.42 [facility] LABORATORY pCO2 Honorio 42 41 - 51 [facility] LABORATORY pO2 Honorio 30 25 - 40 [facility] LABORATORY HCO3 Honorio 26.3 mmol/L [facility] LABORATORY BE Honorio 1.7 mmol/L [facility] LABORATORY Hgb Blood Gas 12.4 (L) 13.7 - [facility] 16.5 g/dL [facility] LABORATORY O2HB Honorio 64.2 % [facility] LABORATORY COHB Honorio 0.8 % [facility] LABORATORY Comment: Nonsmokers: 0.5-1.5% COHB Smokers: Variable, but usually less than 10% Toxic: 20-30% COHB Lethal: Greater than 60% COHB METHB Honorio 0.3 <=1.5 % [facility] LABORATORY Na Whole Blood 130 (L) 135 - 145 mmol/L [facility] LABORAT[facility] K Whole Blood 4.8 3.5 - 5.0 mmol/L [facility] LABORATORY Comment: Please note: Patients with WBC >100,000 may have falsely elevated Potassium levels. Contact the Clinical Chemistry L aboratory if there are any questions. ICa Whole Blood 1.17 1.15 - 1.33 mmol/L [facility] LABORATORY Comment: Note: ??Total bilirubin higher than 20 m g/dL may lead to falsely low ionized calcium. CL Whole Blood 103 98 - 107 mmol/L [facility] LABORATORY Gluc Whole Bld 112 65 - 199 mg/dL [facility] LABORATORY Comment: Diabetes: >=200 mg/dL plus symp toms Lactate WB 1.1 0.5 - 2.2 mmol/L [facility] LABORATORY FIO2 Honorio 21 % [facility] LABORATORY BGas Source Venous [facility] LABORATORY Specimen Anatomical Collection Method Collection Time Receive d Time (Source) Location / / Volume Laterality Blood Venous Draw / 01/28/2022 6:20 AM 01/29/20 22 6:28 Unknown EDT AM EDT Resulting Agency Comment Spec In Lab Angelina Reynoso MD CHEMISTRY ORDERABLES Performing Organization Address City/State/ZIP Code Phon e Number [address] (ABNORMAL) CK (01/28/2022 6:20 AM EDT) P athologist Signature CK, Total 11,287 (H) 0 - 200 [facility] LABORATORY Specimen Anatomical Collection Method Collection Time Receive d Time (Source) Location / / Volume Laterality Blood 01/28/2022 6:20 AM 2 6:27 EDT AM EDT Resulting Agency Comment Spec In Lab Cristina Hillman APRN CHEMISTRY ORDERABLES Performing Organization Address City/[facility]/ZIP Code Phon e Number [address] (ABNORMAL) _Urinalysis with microscopic (01/28/2022 6:00 AM EDT) Patholo gist Method Time Signature Glucose UA 100 (A) Negative [facility] mg/dL [facility] LABORATORY Protein UA >=300 (A) Negative [facility] LABORATORY Bilirubin UA Negative Negative [facility] mg/dL [facility] LABORATORY Comment: Clinical correlation required for positi ve Urine Bilirubin results as false positive may occur with some drugs and d rug related products. If a false positive is suspected a serum total bili villaseñor should be considered if clinically indicated. Urobilinogen UA Normal Normal mg/dL [facility] LABORATORY pH UA 7.5 5.0 - 8.0 [facility] LABORATORY Blood UA Large (A) Negative mg/dL [facility] LABORATORY Ketones UA Negative Negative mg/dL [facility] LABORATORY Nitrite UA Negative Negative [facility] LABORATORY Leukocytes UA Negative Negative [facility] LABORATORY Appearance UA Clear Clear [facility] LABORATORY Spec Harmony UA 1.025 1.006 - 1.030 [facility] LABORATORY Color UA Yellow [facility] LABORATORY RBC UA 4 (H) 0 - 3 /HPF [facility] LABORATORY WBC UA 1 0 - 3 /HPF [facility] LABORATORY Bacteria UA Rare (A) None /HPF [facility] LABORATORY Specimen Anatomical Collection Method Collection Time Receive d Time (Source) Location / / Volume Laterality Urine 01/28/2022 6:00 AM 2 6:40 EDT AM EDT Resulting Agency Comment Spec In Lab Beck Sanz MD URINE ORDERABLES Performing Organization Address City/State/[place] [address] Blood culture (01/28/2022 3:45 AM EDT) [facility] gist Method Time Signature Blood Culture No growth [facility] LABORATORY Specimen Anatomical Collection Method Collection Time Receive d Time (Source) Location / / Volume Laterality Blood 01/28/2022 3:45 AM 2 5:37 EDT AM EDT Resulting Agency Comment Spec In Lab Beck Sanz MD MICROBIOLOGY - BLOOD ORDERAB LES Performing Organization Address City/State/ZIP Code Phon e Number [address] Scan, Peripheral Blood (01/28/2022 12:18 AM EDT) Patholo gist Method Time Signature Plat Estimate Decreased [facility] LABORATORY RBC Morphology Normal [facility] LABORATORY Specimen Anatomical Collection Method Collection Time Receive d Time (Source) Location / / Volume Laterality Blood 01/28/2022 12:18 01/28/2022 AM EDT 12:24 AM EDT Resulting Agency Comment Spec In Lab Cristina Hillman APRN HEMATOLOGY ORDERABLES Performing Organization Address City/[facility]/[place] [address] (ABNORMAL) Blood Gas Venous (NLH) (01/28/2022 12:18 AM EDT) Analysis Performed At Path logist Time Signature pH Honorio 7.39 7.32 - [facility] 7.42 [facility] LABORATORY pCO2 Honorio 44 41 - 51 [facility] LABORATORY pO2 Honorio 34 25 - 40 [facility] LABORATORY HCO3 Honorio 25.9 mmol/L [facility] LABORATORY BE Honorio 1.0 mmol/L [facility] LABORATORY Hgb Blood Gas 12.8 (L) 13.7 - [facility] 16.5 g/dL [facility] LABORATORY O2HB Honorio 68.7 % [facility] LABORATORY COHB Honorio 0.6 % [facility] LABORATORY Comment: Nonsmokers: 0.5-1.5% COHB Smokers: Variable, but usually less than 10% Toxic: 20-30% COHB Lethal: Greater than 60% COHB METHB Honorio 0.3 <=1.5 % [facility] LABORATORY Na Whole Blood 130 (L) 135 - 145 mmol/L [facility] LABORATORY K Whole Blood 4.4 3.5 - 5.0 mmol/L [facility] LABORATORY Comment: Please note: Patients with WBC >100,000 may have falsely elevated Potassium levels. Contact the Clinical Chemistry L aboratory if there are any questions. ICa Whole Blood 1.14 (L) 1.15 - 1.33 mmol/L [facility] LABORATORY Comment: Note: ??Total bilirubin higher than 20 m g/dL may lead to falsely low ionized calcium. CL Whole Blood 102 98 - 107 mmol/L [facility] LABORATORY Gluc Whole Bld 120 65 - 199 mg/dL [facility] LABORATORY Comment: Diabetes: >=200 mg/dL plus symp toms Lactate WB 1.0 0.5 - 2.2 mmol/L [facility] LABORATORY FIO2 Honorio 21 % [facility] LABORATORY BGas Source Venous [facility] LABORATORY Specimen Anatomical Collection Method Collection Time Receive d Time (Source) Location / / Volume Laterality Blood Venous Draw / 01/28/2022 12:18 01/28/2022 Unknown AM EDT 12:25 AM EDT Resulting Agency Comment Spec In Lab Angelina Reynoso MD CHEMISTRY ORDERABLES Performing Organization Address City/State/[place] [address] (ABNORMAL) Differential, Automated (01/28/2022 12:18 AM EDT) [facility] Method Time Signature Neutrophils % 56.1 % [facility] LABORATORY Neutr Abs (ANC) 13.41 (H) 1.70 - [facility] 6.10 [facility] x10(3)/[facility] L LABORATORY Lymphocytes % 7.3 % [facility] LABORATORY Lymphocytes Abs 1.7 0.9 - 3.2 [facility] x10(3)/[facility] LABORATORY Monocytes % 6.7 % [facility] LABORATORY Monocyte Abs 1.6 (H) 0.3 - 0.9 [facility] x10(3)/[facility] LABORATORY Eosinophils % 1.0 % [facility] LABORATORY Eosinophils Abs 0.2 0.0 - 0.4 [facility] x10(3)[facility] LABORATORY Basophils % 0.1 % [facility] LABORATORY Basophils Abs 0.0 0.0 - 0.1 [facility] x10(3)/[facility] LABORATORY Immature Gran % 28.80 % [facility] LABORATORY Comment: Immature granulocytes(IG's)percentage an d absolute count will include metamyelocytes, myelocytes, and promyelo cytes. Blood smears from CBCs yielding IG's will be scanned manually for concor dance. If this scan disagrees with the automated IG or if promyelocytes are not ed, a manual differential will be performed. Gemini Gran Abs 6.87 (H) 0.00 - 0.04 x10(3)/[facility] LABORATORY Specimen Anatomical Collection Method Collection Time Receive d Time (Source) Location / / Volume Laterality Blood 01/28/2022 12:18 01/28/2022 AM EDT 12:24 AM EDT Resulting Agency Comment Spec In Lab Cristina [facility] HEMATOLOGY ORDERABLES Performing Organization Address City/State/[place] [address] (ABNORMAL) Hemogram (01/28/2022 12:18 AM EDT) Analysis Performed At Patho logist Time Signature WBC 23.9 (H) 4.0 - 9.5 [facility] x10(3)/[facility] LABORATORY RBC 3.63 (L) 4.58 - [facility] MANDO 5.54 [facility] x10(6)/[facility] LABORATORY Hemoglobin 11.9 (L) 13.7 [facility] 16.5 g/dL [facility] LABORATORY Hematocrit 34.7 (L) 40.5 - [facility] 48.5 % [facility] LABORATORY MCV 95.6 (H) 82.9 - [facility] 93.1 [facility] LABORATORY MCH 32.8 (H) 27.5 - [facility] 32.1 pg [facility] LABORATORY MCHC 34.3 32.0 - [facility] 35.7 g/dL [facility] LABORATORY Platelets 106 (L) 145 - 357 [facility] x10(3)/[facility] RDWSD 43.9 36.0 - [facility] 45.0 [facility] LABORATORY RDWCV 12.8 11.4 - [facility] 13.8 % [facility] LABORATORY MPV 10.5 7.6 - 12.9 [facility] LABORATORY nRBC % Auto 0.0 % [facility] LABORATORY nRBC Abs Auto 0.000 0.000 - [facility] [place] 0.000 [facility] x10(3)/[facility] LABORATORY Specimen Anatomical Collection Method Collection Time Receive d Time (Source) Location / / Volume Laterality Blood 01/28/2022 12:18 01/28/2022 AM EDT 12:24 AM EDT Resulting Agency Comment Spec In Lab LaserLeapma B [facility] BALL MILL OPERATOR HEMATOLOGY ORDERABLES Performing Organization Address City/[facility]/ZIP Code Phon e Number [address] (ABNORMAL) Hepatic Function Panel (01/28/2022 12:18 AM EDT) P athologist Signature Total Protein 4.5 (L) 6.1 - 8.0 [facility] g/dL [facility] LABORATORY Albumin 2.0 (L) 3.2 - 5.2 [facility] g/dL [facility] LABORATORY AST 418 (H) 0 - 39 [facility] unit/L [facility] LABORATORY ALT 237 (H) 0 - 55 [facility] unit/L [facility] LABORATORY Alk Phos 88 40 - 130 [facility] unit/L [facility] LABORATORY Total 0.4 0.2 - 1.3 [facility] Bilirubin mg/dL [facility] LABORATORY Bili, Direct 0.3 0.0 - 0.3 [facility] mg/dL [facility] LABORATORY Specimen Anatomical Collection Method Collection Time Receive d Time (Source) Location / / Volume Laterality Blood 01/28/2022 12:18 01/28/2022 AM EDT 12:24 AM EDT Resulting Agency Comment Spec In Lab Gemma B Pentland BALL MILL OPERATOR CHEMISTRY ORDERABLES Performing Organization Address City/[facility]/ZIP Code Phon e Number [address] (ABNORMAL) Basic Metabolic Panel (non-fasting) (01/28/2022 12:18 AM EDT) P athologist Signature Glucose Lvl 118 65 - 199 [facility] mg/dL [facility] LABORATORY Comment: Diabetes: >=200 mg/dL plus symp toms BUN 20 10 - 20 mg/dL [facility] LABORATORY Creatinine 2.03 (H) 0.80 - 1.50 mg/dL [facility] LABORATORY Sodium 136 135 - 145 mmol/L [facility] LABORATORY Potassium 4.6 3.5 - 5.0 mmol/L [facility] LABORATORY Comment: Please note: ??Patients with WBC >100,00 0 may have falsely elevated Potassium levels. ??For accurate Potassium quantif ication in these patients send serum separator tube (gold top) for subsequent determinations. ??Contact the Clinical Chemistry Laboratory if there are any qu estions. Chloride 102 98 - 107 mmol/L [facility] LABORATORY CO2 25 22 - 31 mmol/L [facility] LABORATORY Anion Gap 9 5 - 15 mmol/L [facility] LABORATORY Calcium 7.9 (L) 8.5 - 10.5 mg/dL [facility] LABORATORY Estimated GFR 44 (L) >=60 mL/min/1.73 m?? [facility] LABORATORY Comment: This patient's estimated [...] Organization Address City/State/[place] [address] Phosphorus (01/28/2022 12:18 AM EDT) athologist Signature Phosphorus 2.5 2.5 - 4.5 [facility] mg/dL [facility] LABORATORY Specimen Anatomical Collection Method Collection Time Receive d Time (Source) Location / / Volume Laterality Blood 01/28/2022 12:18 01/28/2022 AM EDT 12:24 AM EDT Resulting Agency Comment Spec In Lab Gela Novak MD CHEMISTRY ORDERABLES Performing Organization Address City/State/ZIP Code Phon e Number [address] Magnesium (01/28/2022 12:18 AM EDT) athologist Signature Magnesium 0.81 0.69 - 1.07 [facility] mmol/L [facility] LABORATORY Specimen Anatomical Collection Method Collection Time Receive d Time (Source) Location / / Volume Laterality Blood 01/28/2022 12:18 01/28/2022 AM EDT 12:24 AM EDT Resulting Agency Comment Spec In Lab Gela Novak MD CHEMISTRY ORDERABLES Performing Organization Address City/State/ZIP Code Phon e Number [address] (ABNORMAL) CK (01/28/2022 12:18 AM EDT) athologist Signature CK, Total 14,277 (H) 0 - 200 [facility] unit/L [facility] LABORATORY Specimen Anatomical Collection Method Collection Time Receive d Time (Source) Location / / Volume Laterality Blood 01/28/2022 12:18 01/28/2022 AM EDT 12:24 AM EDT Resulting Agency Comment Spec In Lab Cristina Hillman APRN CHEMISTRY ORDERABLES Performing Organization Address City/State/ZIP Code Phon e Number [address] POCT Glucose (01/27/2022 8:29 PM EDT) athologist Signature POC Glucose 104 65 - 199 [facility] mg/dL [facility] LABORATORY Comment: Supplemental ranges: <140 mg/dL before meals <180 mg/dL all other times of the day Specimen Anatomical Collection Method Collection Time Receive d Time (Source) Location / / Volume Laterality Blood 01/27/2022 8:29 PM 8:29 EDT PM EDT Beck Sanz MD POINT OF CARE TEST ORDERABLE S Performing Organization Address City/State/[place] [address] (ABNORMAL) Blood Gas Venous (NLH) (01/27/2022 6:06 PM EDT) Analysis Performed At [facility] Time Signature pH Honorio 7.42 7.32 - [facility] 7.42 [facility] LABORATORY pCO2 Honorio 42 41 - 51 [facility] LABORATORY pO2 Honorio 35 25 - 40 [facility] LABORATORY HCO3 Honorio 26.5 mmol/L [facility] LABORATORY BE Honorio 2.0 mmol/L [facility] LABORATORY Hgb Blood Gas 11.9 (L) 13.7 - [facility] 16.5 g/dL [facility] LABORATORY O2HB Honorio 72.0 % [facility] LABORATORY COHB Honorio 0.8 % [facility] LABORATORY Comment: Nonsmokers: 0.5-1.5% COHB Smokers: Variable, but usually less than 10% Toxic: 20-30% COHB Lethal: Greater than 60% COHB METHB Honorio 0.2 <=1.5 % [facility] LABORATORY Na Whole Blood 130 (L) 135 - 145 mmol/L [facility] LABORATORY K Whole Blood 4.3 3.5 - 5.0 mmol/L [facility] LABORATORY Comment: Please note: Patients with WBC >100,000 may have falsely elevated Potassium levels. Contact the Clinical Chemistry L aboratory if there are any questions. ICa Whole Blood 1.14 (L) 1.15 - 1.33 mmol/L [facility] LABORATORY Comment: Note: ??Total bilirubin higher than 20 m g/dL may lead to falsely low ionized calcium. CL Whole Blood 103 98 - 107 mmol/L [facility] LABORATORY Gluc Whole Bld 142 65 - 199 mg/dL [facility] LABORATORY Comment: Diabetes: >=200 mg/dL plus symp toms Lactate WB 1.2 0.5 - 2.2 mmol/L [facility] LABORATORY BGas Source Venous [facility] LABORATORY Specimen Anatomical Collection Method Collection Time Receive d Time (Source) Location / / Volume Laterality Blood Venous Draw / 01/27/2022 6:06 PM 01/28/20 22 6:06 Unknown EDT PM EDT Resulting Agency Comment Spec In Lab Angelina Reynoso MD CHEMISTRY ORDERABLES Performing Organization Address City/State/[place] [address] (ABNORMAL) CK (01/27/2022 5:55 PM EDT) athologist [facility] CK, Total 15,910 (H) 0 - 200 [facility] LABORATORY Specimen Anatomical Collection Method Collection Time Receive d Time (Source) Location / / Volume Laterality Blood 01/27/2022 5:55 PM 2 6:05 EDT PM EDT Resulting Agency Comment Spec In Lab Cristina Hillman APRN CHEMISTRY ORDERABLES Performing Organization Address City/State/[place] [address] POCT Glucose (01/27/2022 4:28 PM EDT) athologist Signature POC Glucose 99 65 - 199 [facility] mg/dL [facility] LABORATORY Comment: Supplemental ranges: <140 mg/dL before meals <180 mg/dL all other times of the day Specimen Anatomical Collection Method Collection Time Receive d Time (Source) Location / / Volume Laterality Blood 01/27/2022 4:28 PM 2 4:28 EDT PM EDT Beck Sanz MD POINT OF CARE TEST ORDERABLE S Performing Organization Address City/State/[place] [address] POCT Glucose (01/27/2022 12:13 PM EDT) athologist Signature POC Glucose 108 65 - 199 [facility] mg/dL [facility] LABORATORY Comment: Supplemental ranges: <140 mg/dL before meals <180 mg/dL all other times of the day Specimen Anatomical Collection Method Collection Time Receive d Time (Source) Location / / Volume Laterality Blood 01/27/2022 12:13 01/27/2022 PM EDT 12:13 PM EDT Beck Sanz MD POINT OF CARE TEST ORDERABLE S Performing Organization Address City/State/[place] [address] (ABNORMAL) BLOOD GAS 2 VENOUS (01/27/2022 12:11 PM EDT) Analysis Performed At Patho logist Time Signature pH Honorio 7.41 7.32 - [facility] 7.42 [facility] LABORATORY pCO2 Honorio 42 41 - 51 [facility] LABORATORY pO2 Honorio 34 25 - 40 [facility] LABORATORY HCO3 Honorio 25.7 mmol/L [facility] LABORATORY BE Honorio 1.1 mmol/L [facility] LABORATORY Hgb Blood Gas 13.1 (L) 13.7 - [facility] 16.5 g/dL [facility] LABORATORY O2HB Honorio 70.3 % [facility] LABORATORY COHB Honorio 1.0 % [facility] LABORATORY Comment: Nonsmokers: 0.5-1.5% COHB Smokers: Variable, but usually less than 10% Toxic: 20-30% COHB Lethal: Greater than 60% COHB METHB Honorio 0.2 <=1.5 % [facility] LABORATORY Na Whole Blood 130 (L) 135 - 145 mmol/L [facility] LABORATORY K Whole Blood 4.3 3.5 - 5.0 mmol/L [facility] LABORATORY Comment: Please note: Patients with WBC >100,000 may have falsely elevated Potassium levels. Contact the Clinical Chemistry L aboratory if there are any questions. ICa Whole Blood 1.13 (L) 1.15 - 1.33 mmol/L [facility] LABORATORY Comment: Note: ??Total bilirubin higher than 20 m g/dL may lead to falsely low ionized calcium. CL Whole Blood 102 98 - 107 mmol/L [facility] LABORATORY Gluc Whole Bld 127 65 - 199 mg/dL [facility] LABORATORY Comment: Diabetes: >=200 mg/dL plus symp toms Lactate WB 1.1 0.5 - 2.2 mmol/L [facility] LABORATORY FIO2 Honorio 21 % [facility] LABORATORY BGas Source Venous [facility] LABORATORY Specimen Anatomical Collection Method Collection Time Receive d Time (Source) Location / / Volume Laterality Blood 01/27/2022 12:11 01/27/2022 PM EDT 12:11 PM EDT Beck Sanz MD CHEMISTRY ORDERABLES Performing Organization Address City/[facility]/ZIP Code Phon e Number [address] (ABNORMAL) Creatinine (01/27/2022 12:05 PM EDT) Analysis Performed At Patho logist Time Signature Creatinine 2.06 (H) 0.80 - [facility] 1.50 mg/dL [facility] LABORATORY Estimated GFR 44 (L) >=60 [facility] mL/min/1.7 [facility] 3 [facility] LABORATORY Comment: This patient's estimated [...] Organization Address City/State/[place] [address] Scan, Peripheral Blood (01/27/2022 10:22 AM EDT) [facility] Method Time Signature Plat Estimate Decreased [facility] LABORATORY RBC Morphology Normal [facility] LABORATORY Specimen Anatomical Collection Method Collection Time Receive d Time (Source) Location / / Volume Laterality Blood 01/27/2022 10:22 01/27/2022 AM EDT 10:38 AM EDT Resulting Agency Comment Spec In Lab Cristina Hillman APRN HEMATOLOGY ORDERABLES Performing Organization Address City/State/[place] [address] (ABNORMAL) Differential, Automated (01/27/2022 10:22 AM EDT) [facility] [employer] Method Time Signature Neutrophils % 61.9 % [facility] LABORATORY Neutr Abs (ANC) 11.72 (H) 1.70 - [facility] 6.10 [facility] x10(3)/[facility] LABORATORY Lymphocytes % 7.8 % [facility] LABORATORY Lymphocytes Abs 1.5 0.9 - 3.2 [facility] x10(3)/[facility] LABORATORY Monocytes % 5.6 % [facility] LABORATORY Monocyte Abs 1.1 (H) 0.3 - 0.9 [facility] x10(3)/[facility] LABORATORY Eosinophils % 1.1 % [facility] LABORATORY Eosinophils Abs 0.2 0.0 - 0.4 [facility] x10(3)/[facility] LABORATORY Basophils % 0.1 % [facility] LABORATORY Basophils Abs 0.0 0.0 - 0.1 [facility] x10(3)/[facility] LABORATORY Immature Gran % 23.50 % [facility] LABORATORY Comment: Immature granulocytes(IG's)percentage an d absolute count will include metamyelocytes, myelocytes, and promyelo cytes. Blood smears from CBCs yielding IG's will be scanned manually for concor dance. If this scan disagrees with the automated IG or if promyelocytes are not ed, a manual differential will be performed. Gemini Gran Abs 4.45 (H) 0.00 - 0.04 x10(3)/[facility] LABORATORY Specimen Anatomical Collection Method Collection Time Receive d Time (Source) Location / / Volume Laterality Blood 01/27/2022 10:22 01/27/2022 AM EDT 10:38 AM EDT Resulting Agency Comment Spec In Lab Cristina Hillman APRN HEMATOLOGY ORDERABLES Performing Organization Address City/State/[place] [address] (ABNORMAL) Hemogram (01/27/2022 10:22 AM EDT) [facility] gist Method Time Signature WBC 18.9 (H) 4.0 - 9.5 [facility] x10(3)/[facility] LABORATORY RBC 3.61 (L) 4.58 [facility] 5.54 [facility] x10(6)/[facility] LABORATORY Hemoglobin 11.6 (L) 13.7 - [facility] 16[facility] g/dL [facility] LABORATORY Hematocrit 34.2 (L) 40.5 - [facility] 48.5 % [facility] LABORATORY MCV 94.7 (H) 82.9 - [facility] 93.1 [facility] LABORATORY MCH 32.1 27.5 - [facility] 32.1 pg [facility] LABORATORY MCHC 33.9 32.0 - [facility] 35.7 g/dL [facility] LABORATORY Platelets 100 (L) 145 - 357 [facility] x10(3)/[facility] LABORATORY RDWSD 43.3 36.0 - [facility] 45.0 [facility] LABORATORY RDWCV 12.6 11.4 - [facility] 13.8 % [facility] LABORATORY MPV 10.6 7.6 - 12.9 [facility] LABORATORY nRBC % Auto 0.1 % [facility] LABORATORY nRBC Abs Auto 0.020 (H) 0.000 - [facility] 0.000 [facility] x10(3)/[facility] [facility] Specimen Anatomical Collection Method Collection Time Receive d Time (Source) Location / / Volume Laterality Blood 01/27/2022 10:22 01/27/2022 AM EDT 10:38 AM EDT Resulting Agency Comment Spec In Lab Cristina Hillman APRN HEMATOLOGY ORDERABLES Performing Organization Address City/State/ZIP Code Phon e Number [address] POCT Glucose (01/27/2022 8:30 AM EDT) athologist Signature POC Glucose 103 65 - 199 [facility] mg/dL [facility] LABORATORY Comment: Supplemental ranges: <140 mg/dL before meals <180 mg/dL all other times of the day Specimen Anatomical Collection Method Collection Time Receive d Time (Source) Location / / Volume Laterality Blood 01/27/2022 8:30 AM 8:30 EDT AM EDT Beck Sanz MD POINT OF CARE TEST ORDERABLE S Performing Organization Address City/State/[place] [address] (ABNORMAL) Blood Gas Venous ([facility]) (01/27/2022 5:36 AM EDT) athologist Signature pH Honorio 7.37 7.32 - [facility] 7.42 [facility] LABORATORY pCO2 Honorio 47 41 - 51 [facility] LABORATORY pO2 Honorio 33 25 - 40 [facility] LABORATORY HCO3 Honorio 26.4 mmol/L [facility] LABORATORY BE Honorio 1.2 mmol/L [facility] LABORATORY Hgb Blood Gas 16.1 13.7 - [facility] 16.5 g/dL [facility] LABORATORY O2HB Honorio 66.2 % [facility] LABORATORY COHB Honorio 1.5 % [facility] LABORATORY Comment: Nonsmokers: 0.5-1.5% COHB Smokers: Variable, but usually less than 10% Toxic: 20-30% COHB Lethal: Greater than 60% COHB METHB Honorio 0.3 <=1.5 % [facility] LABORATORY Na Whole Blood 133 (L) 135 - 145 mmol/L [facility] LABORATORY K Whole Blood 4.4 3.5 - 5.0 mmol/L [facility] LABORATORY Comment: Please note: Patients with WBC >100,000 may have falsely elevated Potassium levels. Contact the Clinical Chemistry L aboratory if there are any questions. ICa Whole Blood 1.14 (L) 1.15 - 1.33 mmol/L [facility] LABORATORY Comment: Note: ??Total bilirubin higher than 20 m g/dL may lead to falsely low ionized calcium. CL Whole Blood 102 98 - 107 mmol/L [facility] LABORATORY Gluc Whole Bld 106 65 - 199 mg/dL [facility] LABORATORY Comment: Diabetes: >=200 mg/dL plus symp toms Lactate WB 1.2 0.5 - 2.2 mmol/L [facility] LABORATORY BGas Source Venous [facility] LABORATORY Specimen Anatomical Collection Method Collection Time Receive d Time (Source) Location / / Volume Laterality Blood Venous Draw / 01/27/2022 5:36 AM 01/28/20 22 5:45 Unknown EDT AM EDT Resulting Agency Comment Spec In Lab Angelina Reynoso MD CHEMISTRY ORDERABLES Performing Organization Address City/[facility]/[place] [address] (ABNORMAL) CK (01/27/2022 5:36 AM EDT) P athologist Signature CK, Total 21,662 (H) 0 - 200 [facility] unit/L [facility] LABORATORY Specimen Anatomical Collection Method Collection Time Receive d Time (Source) Location / / Volume Laterality Blood 01/27/2022 5:36 AM 2 5:43 EDT AM EDT Resulting Agency Comment Spec In Lab Cristina Hillman APRN CHEMISTRY ORDERABLES Performing Organization Address City/[facility]/[place] [address] (ABNORMAL) Blood Gas Venous ([facility]) (01/27/2022 1:25 AM EDT) Analysis Performed At Patho logist Time Signature pH Honorio 7.44 (H) 7.32 - [facility] 7.42 [facility] LABORATORY pCO2 Honorio 39 (L) 41 - 51 [facility] LABORATORY pO2 Honorio 36 25 - 40 [facility] LABORATORY HCO3 Honorio 25.9 mmol/L [facility] LABORATORY BE Honorio 1.6 mmol/L [facility] LABORATORY Hgb Blood Gas 11.8 (L) 13.7 - [facility] 16.5 g/dL [facility] LABORATORY O2HB Honorio 73.6 % [facility] LABORATORY COHB Honorio 0.6 % [facility] LABORATORY Comment: Nonsmokers: 0.5-1.5% COHB Smokers: Variable, but usually less than 10% Toxic: 20-30% COHB Lethal: Greater than 60% COHB METHB Honorio 0.0 <=1.5 % [facility] LABORATORY Na Whole Blood 132 (L) 135 - 145 mmol/L [facility] LABORATORY K Whole Blood 4.3 3.5 - 5.0 mmol/L [facility] LABORATORY Comment: Please note: Patients with WBC >100,000 may have falsely elevated Potassium levels. Contact the Clinical Chemistry L aboratory if there are any questions. ICa Whole Blood 1.11 (L) 1.15 - 1.33 mmol/L [facility] LABORATORY Comment: Note: ??Total bilirubin higher than 20 m g/dL may lead to falsely low ionized calcium. CL Whole Blood 104 98 - 107 mmol/L [facility] LABORATORY Gluc Whole Bld 108 65 - 199 mg/dL [facility] LABORATORY Comment: Diabetes: >=200 mg/dL plus symp toms Lactate WB 1.6 0.5 - 2.2 mmol/L [facility] LABORATORY BGas Source Venous [facility] LABORATORY Specimen Anatomical Collection Method Collection Time Receive d Time (Source) Location / / Volume Laterality Blood Venous Draw / 01/27/2022 1:25 AM 01/28/20 1:31 Unknown EDT AM EDT Resulting Agency Comment Spec In Lab Angelina Reynoso MD CHEMISTRY ORDERABLES Performing Organization Address City/State/[place] [address] (ABNORMAL) CK (01/27/2022 1:25 AM EDT) P athologist Signature CK, Total 22,236 (H) 0 - 200 [facility] unit/L [facility] LABORATORY Specimen Anatomical Collection Method Collection Time Receive d Time (Source) Location / / Volume Laterality Blood 01/27/2022 1:25 AM 2 1:30 EDT AM EDT Resulting Agency Comment Spec In Lab Gemma B Pentland BALL MILL OPERATOR CHEMISTRY ORDERABLES Performing Organization Address City/[facility]/[place] [address] (ABNORMAL) Hepatic Function Panel (01/27/2022 1:25 AM EDT) athologist [facility] Total Protein 4.3 (L) 6.1 - 8.0 [facility] MANDO g/dL [facility] LABORATORY Albumin 2.1 (L) 3.2 - 5.2 [facility] g/dL [facility] LABORATORY AST 618 (H) 0 - 39 [facility] unit/L [facility] LABORATORY ALT 418 (H) 0 - 55 [facility] unit/L [facility] LABORATORY Alk Phos 82 40 - 130 [facility] unit/L [facility] LABORATORY Total 0.9 0.2 - 1.3 [facility] Bilirubin mg/dL [facility] LABORATORY Bili, Direct 0.8 (H) 0.0 - 0.3 [facility] mg/dL [facility] LABORATORY Specimen Anatomical Collection Method Collection Time Receive d Time (Source) Location / / Volume Laterality Blood 01/27/2022 1:25 AM 2 1:30 EDT AM EDT Resulting Agency Comment Spec In Lab Gemma B Pentland BALL MILL OPERATOR CHEMISTRY ORDERABLES Performing Organization Address City/[facility]/[place] [address] (ABNORMAL) Basic Metabolic Panel (non-fasting) (01/27/2022 1:25 AM EDT) athologist [facility] Glucose Lvl 112 65 - 199 [facility] LABORATORY Comment: Diabetes: >=200 mg/dL plus symp toms BUN 21 (H) 10 - 20 mg/dL [facility] LABORATORY Creatinine 2.12 (H) 0.80 - 1.50 mg/dL [facility] LABORATORY Sodium 135 135 - 145 mmol/L [facility] LABORATORY Potassium 4.4 3.5 - 5.0 mmol/L [facility] LABORATORY Comment: Please note: ??Patients with WBC >100,00 0 may have falsely elevated Potassium levels. ??For accurate Potassium quantif ication in these patients send serum separator tube (gold top) for subsequent determinations. ??Contact the Clinical Chemistry Laboratory if there are any qu estions. Chloride 104 98 - 107 mmol/L [facility] LABORATORY CO2 25 22 - 31 mmol/L [facility] LABORAT[facility] Anion Gap 6 5 - 15 mmol/L [facility] LABORATORY Calcium 7.7 (L) 8.5 - 10.5 mg/dL [facility] LABORATORY Estimated GFR 42 (L) >=60 mL/min/1.73 m?? [facility] LABORATORY Comment: This patient's estimated [...] Organization Address City/State/[place] [address] (ABNORMAL) Phosphorus (01/27/2022 1:25 AM EDT) P athologist Signature Phosphorus 1.6 (L) 2.5 - 4.5 [facility] [place] mg/dL [facility] LABORATORY Specimen Anatomical Collection Method Collection Time Receive d Time (Source) Location / / Volume Laterality Blood 01/27/2022 1:25 AM 2 1:30 EDT AM EDT Resulting Agency Comment Spec In Lab Gela Novak MD CHEMISTRY ORDERABLES Performing Organization Address City/[facility]/ZIP Code Phon e Number [address] Magnesium (01/27/2022 1:25 AM EDT) P athologist Signature Magnesium 0.72 0.69 - 1.07 [facility] mmol/L [facility] LABORATORY Specimen Anatomical Collection Method Collection Time Receive d Time (Source) Location / / Volume Laterality Blood 01/27/2022 1:25 AM 2 1:30 EDT AM EDT Resulting Agency Comment Spec In Lab Gela Novak MD CHEMISTRY ORDERABLES Performing Organization Address City/[facility]/ZIP Code Phon e Number [address] POCT Glucose (01/26/2022 8:59 PM EDT) P athologist Signature POC Glucose 83 65 - 199 [facility] LABORATORY Comment: Supplemental ranges: <140 mg/dL before meals <180 mg/dL all other times of the day Specimen Anatomical Collection Method Collection Time Receive d Time (Source) Location / / Volume Laterality Blood 01/26/2022 8:59 PM 2 8:59 EDT PM EDT Beck Sanz MD POINT OF CARE TEST ORDERABLE S Performing Organization Address City/State/ZIP Code Phon e Number [address] (ABNORMAL) Blood Gas Venous ([facility]) (01/26/2022 6:19 PM EDT) Analysis Performed At Patho logist Time Signature pH Honorio 7.34 7.32 - [facility] 7.42 [facility] LABORATORY pCO2 Honorio 48 41 - 51 [facility] LABORATORY pO2 Honorio 32 25 - 40 [facility] LABORATORY HCO3 Honorio 25.4 mmol/L [facility] LABORATORY BE Honorio -0.3 mmol/L [facility] LABORATORY Hgb Blood Gas 12.0 (L) 13.7 - [facility] 16.5 g/dL [facility] LABORATORY O2HB Honorio 59.2 % [facility] LABORATORY COHB Honorio 1.1 % [facility] LABORATORY Comment: Nonsmokers: 0.5-1.5% COHB Smokers: Variable, but usually less than 10% Toxic: 20-30% COHB Lethal: Greater than 60% COHB METHB Honorio 0.3 <=1.5 % [facility] LABORATORY Na Whole Blood 131 (L) 135 - 145 mmol/L [facility] LABORAT[facility] K Whole Blood 4.1 3.5 - 5.0 mmol/L [facility] LABORATORY Comment: Please note: Patients with WBC >100,000 may have falsely elevated Potassium levels. Contact the Clinical Chemistry L aboratory if there are any questions. ICa Whole Blood 1.12 (L) 1.15 - 1.33 mmol/L [facility] LABORATORY Comment: Note: ??Total bilirubin higher than 20 m g/dL may lead to falsely low ionized calcium. CL Whole Blood 104 98 - 107 mmol/L [facility] LABORATORY Gluc Whole Bld 127 65 - 199 mg/dL [facility] LABORATORY Comment: Diabetes: >=200 mg/dL plus symp toms Lactate WB 1.5 0.5 - 2.2 mmol/L [facility] LABORATORY BGas Source Venous [facility] LABORATORY Specimen Anatomical Collection Method Collection Time Receive d Time (Source) Location / / Volume Laterality Blood Venous Draw / 01/26/2022 6:19 PM 01/27/20 6:32 Unknown EDT PM EDT Resulting Agency Comment Spec In Lab Angelina Reynoso MD CHEMISTRY ORDERABLES Performing Organization Address City/State/[place] [address] (ABNORMAL) CK (01/26/2022 6:19 PM EDT) athologist Signature CK, Total 21,834 (H) 0 - [address] [facility]/L [facility] LABORATORY Specimen Anatomical Collection Method Collection Time Receive d Time (Source) Location / / Volume Laterality Blood 01/26/2022 6:19 PM 2 6:31 EDT PM EDT Resulting Agency Comment Spec In Lab Cristina Hillman BALL MILL OPERATOR CHEMISTRY ORDERABLES Performing Organization Address City/State/ZIP Code Phon e Number [address] POCT Glucose (01/26/2022 6:03 PM EDT) athologist Signature POC Glucose 108 65 - 199 [facility]dL [facility] LABORATORY Comment: Supplemental ranges: <140 mg/dL before meals <180 mg/dL all other times of the day Specimen Anatomical Collection Method Collection Time Receive d Time (Source) Location / / Volume Laterality Blood 01/26/2022 6:03 PM 2 6:03 EDT PM EDT Beck Sanz MD POINT OF CARE TEST ORDERABLE S Performing Organization Address City/State/ZIP Code Phon e Number [address] POCT Glucose (01/26/2022 4:31 PM EDT) athologist Signature POC Glucose 112 65 - 199 [facility] mg/dL [facility] LABORATORY Comment: Supplemental ranges: <140 mg/dL before meals <180 mg/dL all other times of the day Specimen Anatomical Collection Method Collection Time Receive d Time (Source) Location / / Volume Laterality Blood 01/26/2022 4:31 PM 2 4:31 EDT PM EDT Beck Sanz MD POINT OF CARE TEST ORDERABLE S Performing Organization Address City/State/ZIP Code Phon e Number [address] POCT Glucose (01/26/2022 2:00 PM EDT) athologist Signature POC Glucose 89 65 - 199 [facility] mg/dL [facility] LABORATORY Comment: Supplemental ranges: <140 mg/dL before meals <180 mg/dL all other times of the day Specimen Anatomical Collection Method Collection Time Receive d Time (Source) Location / / Volume Laterality Blood 01/26/2022 2:00 PM 2:00 EDT PM EDT Beck Sanz MD POINT OF CARE TEST ORDERABLE S Performing Organization Address City/State/[place] [address] (ABNORMAL) BLOOD GAS 2 VENOUS (01/26/2022 12:23 PM EDT) Analysis Performed At Patho logist Time Signature pH Honorio 7.42 7.32 - [facility] 7.42 [facility] LABORATORY pCO2 Honorio 40 (L) 41 - 51 [facility] LABORATORY pO2 Honorio 33 25 - 40 [facility] LABORATORY HCO3 Honorio 25.4 mmol/L [facility] LABORATORY BE Honorio 1.0 mmol/L [facility] LABORATORY Hgb Blood Gas 12.1 (L) 13.7 - [facility] 16.5 g/dL [facility] LABORATORY O2HB Honorio 65.4 % [facility] LABORATORY COHB Honorio 0.7 % [facility] LABORATORY Comment: Nonsmokers: 0.5-1.5% COHB Smokers: Variable, but usually less than 10% Toxic: 20-30% COHB Lethal: Greater than 60% COHB METHB Honorio 0.1 <=1.5 % [facility] LABORATORY Na Whole Blood 130 (L) 135 - 145 mmol/L [facility]OR[facility] K Whole Blood 3.8 3.5 - 5.0 mmol/L [facility] LABORATORY Comment: Please note: Patients with WBC >100,000 may have falsely elevated Potassium levels. Contact the Clinical Chemistry L aboratory if there are any questions. ICa Whole Blood 1.16 1.15 - 1.33 mmol/L [facility] LABORATORY Comment: Note: ??Total bilirubin higher than 20 m g/dL may lead to falsely low ionized calcium. CL Whole Blood 102 98 - 107 mmol/L [facility] LABORATORY Gluc Whole Bld 115 65 - 199 mg/dL [facility] LABORATORY Comment: Diabetes: >=200 mg/dL plus symp toms Lactate WB 0.9 0.5 - 2.2 mmol/L [facility] LABORATORY FIO2 Honorio 21 % [facility] LABORATORY BGas Source Central Venous [facility] LABORATORY Specimen Anatomical Collection Method Collection Time Receive d Time (Source) Location / / Volume Laterality Blood 01/26/2022 12:23 01/26/2022 PM EDT 12:23 PM EDT Beck Sanz MD CHEMISTRY ORDERABLES Performing Organization Address City/State/[place] [address] (ABNORMAL) CK (01/26/2022 12:22 PM EDT) P athologist Signature CK, Total 25,802 (H) 0 - 200 [facility] unit/[facility] LABORATORY Specimen Anatomical Collection Method Collection Time Receive d Time (Source) Location / / Volume Laterality Blood 01/26/2022 12:22 01/26/2022 PM EDT 12:29 PM EDT Resulting Agency Comment Spec In Lab Cristina Hillman APRN CHEMISTRY ORDERABLES Performing Organization Address City/[facility]/[place] [address] POCT Glucose (01/26/2022 12:05 PM EDT) athologist Signature POC Glucose 79 65 - 199 [facility] mg/dL [facility] LABORATORY Comment: Supplemental ranges: <140 mg/dL before meals <180 mg/dL all other times of the day Specimen Anatomical Collection Method Collection Time Receive d Time (Source) Location / / Volume Laterality Blood 01/26/2022 12:05 01/26/2022 PM EDT 12:05 PM EDT Beck Sanz MD POINT OF CARE TEST ORDERABLE S Performing Organization Address City/State/[place] [address] POCT Glucose (01/26/2022 11:08 AM EDT) athologist Signature POC Glucose 82 65 - 199 [facility] mg/dL [facility] LABORATORY Comment: Supplemental ranges: <140 mg/dL before meals <180 mg/dL all other times of the day Specimen Anatomical Collection Method Collection Time Receive d Time (Source) Location / / Volume Laterality Blood 01/26/2022 11:08 01/26/2022 AM EDT 11:08 AM EDT Beck Sanz MD POINT OF CARE TEST ORDERABLE S Performing Organization Address City/State/[place] [address] (ABNORMAL) POCT Glucose (01/26/2022 10:15 AM EDT) athologist Signature POC Glucose 59 (L) 65 - 199 [facility] mg/dL [facility] LABORATORY Comment: Supplemental ranges: <140 mg/dL before meals <180 mg/dL all other times of the day Specimen Anatomical Collection Method Collection Time Receive d Time (Source) Location / / Volume Laterality Blood 01/26/2022 10:15 01/26/2022 AM EDT 10:15 AM EDT Beck Sanz MD POINT OF CARE TEST ORDERABLE S Performing Organization Address City/State/[place] [address] POCT Glucose (01/26/2022 8:58 AM EDT) athologist Signature POC Glucose 75 65 - 199 [facility] mg/dL [facility] LABORATORY Comment: Supplemental ranges: <140 mg/dL before meals <180 mg/dL all other times of the day Specimen Anatomical Collection Method Collection Time Receive d Time (Source) Location / / Volume Laterality Blood 01/26/2022 8:58 AM 8:58 EDT AM EDT Beck Sanz MD POINT OF CARE TEST ORDERABLE S Performing Organization Address City/State/[place] [address] (ABNORMAL) POCT Glucose (01/26/2022 8:20 AM EDT) athologist Signature POC Glucose 49 65 - 199 [facility] (Critical) mg/dL [facility] LABORATORY Comment: Supplemental ranges: <140 mg/dL before meals <180 mg/dL all other times of the day Specimen Anatomical Collection Method Collection Time Receive d Time (Source) Location / / Volume Laterality Blood 01/26/2022 8:20 AM 2 8:20 EDT AM EDT Beck Sanz MD POINT OF CARE TEST ORDERABLE S Performing Organization Address City/State/[place] [address] (ABNORMAL) CK (01/26/2022 6:15 AM EDT) athologist Signature CK, Total 27,357 (H) 0 - 200 [facility] unit/L [facility] LABORATORY Specimen Anatomical Collection Method Collection Time Receive d Time (Source) Location / / Volume Laterality Blood 01/26/2022 6:15 AM 2 6:21 EDT AM EDT Resulting Agency Comment Spec In Lab Cristina Hillman APRN CHEMISTRY ORDERABLES Performing Organization Address City/State/[place] [address] (ABNORMAL) BLOOD GAS 2 VENOUS (01/26/2022 5:59 AM EDT) Analysis Performed At Patho logist Time Signature pH Honorio 7.40 7.32 - [facility] 7.42 [facility] LABORATORY pCO2 Honorio 42 41 - 51 [facility] LABORATORY pO2 Honorio 32 25 - 40 [facility] LABORATORY HCO3 Honorio 25.9 mmol/L [facility]OR[facility] BE Honorio 1.1 mmol/L [facility] Hgb Blood Gas 12.5 (L) 13.7 - [facility] 16.5 g/dL [facility]ORATORY O2HB Honorio 62.3 % [facility] COHB Honorio 0.6 % [facility] LAB[facility] Comment: Nonsmokers: 0.5-1.5% COHB Smokers: Variable, but usually less than 10% Toxic: 20-30% COHB Lethal: Greater than 60% COHB METHB Honorio 0.2 <=1.5 % [facility] LABORATORY Na Whole Blood 132 (L) 135 - 145 mmol/L [facility] K Whole Blood 4.0 3.5 - 5.0 mmol/L [facility] LABORATORY Comment: Please note: Patients with WBC >100,000 may have falsely elevated Potassium levels. Contact the Clinical Chemistry L aboratory if there are any questions. ICa Whole Blood 1.18 1.15 - 1.33 mmol/L [facility] Comment: Note: ??Total bilirubin higher than 20 m g/dL may lead to falsely low ionized calcium. CL Whole Blood 103 98 - 107 mmol/L [facility]OR[facility]ORY Gluc Whole Bld 95 65 - 199 mg/dL [facility] Comment: Diabetes: >=200 mg/dL plus symp toms Lactate WB 1.0 0.5 - 2.2 mmol/L [facility] LABORATORY FIO2 Honorio 21 % [facility] BGas Source Venous [facility] LABOR[facility]ORY Specimen Anatomical Collection Method Collection Time Receive d Time (Source) Location / / Volume Laterality Blood 01/26/2022 5:59 AM 2 5:59 EDT AM EDT Beck Sanz MD CHEMISTRY ORDERABLES Performing Organization Address City/[facility]/[place] [address] POCT Glucose (01/26/2022 5:09 AM EDT) P athologist Signature POC Glucose 103 65 - 199 [facility] mg/dL [facility] LABORATORY Comment: Supplemental ranges: <140 mg/dL before meals <180 mg/dL all other times of the day Specimen Anatomical Collection Method Collection Time Receive d Time (Source) Location / / Volume Laterality Blood 01/26/2022 5:09 AM 2 5:09 EDT AM EDT Beck Sanz MD POINT OF CARE TEST ORDERABLE S Performing Organization Address City/State/ZIP Code Phon [place] [address] (ABNORMAL) POCT Glucose (01/26/2022 4:21 AM EDT) athologist Signature POC Glucose 61 (L) 65 - 199 [facility] mg/dL [facility] LABORATORY Comment: Supplemental ranges: <140 mg/dL before meals <180 mg/dL all other times of the day Specimen Anatomical Collection Method Collection Time Receive d Time (Source) Location / / Volume Laterality Blood 01/26/2022 4:21 AM 4:21 EDT AM EDT Beck Sanz MD POINT OF CARE TEST ORDERABLE S Performing Organization Address City/State/ZIP Code Phon e Number [address] (ABNORMAL) BLOOD GAS 2 VENOUS (01/26/2022 12:26 AM EDT) athologist Signature pH Honorio 7.38 7.32 - [facility] 7.42 [facility] LABORATORY pCO2 Honorio 47 41 - 51 [facility] LABORATORY pO2 Honorio 32 25 - 40 [facility] LABORATORY HCO3 Honorio 27.4 mmol/L [facility]OR[facility] BE Honorio 2.3 mmol/L [facility] LABORATORY Hgb Blood Gas 13.7 13.7 - [facility] 16.5 g/dL [facility] O2HB Honorio 60.6 % [facility] COHB Honorio 0.8 % [facility] Comment: Nonsmokers: 0.5-1.5% COHB Smokers: Variable, but usually less than 10% Toxic: 20-30% COHB Lethal: Greater than 60% COHB METHB Honorio 0.0 <=1.5 % [facility] Na Whole Blood 133 (L) 135 - 145 mmol/L [facility] K Whole Blood 4.3 3.5 - 5.0 mmol/L [facility] Comment: Please note: Patients with WBC >100,000 may have falsely elevated Potassium levels. Contact the Clinical Chemistry L aboratory if there are any questions. ICa Whole Blood 1.17 1.15 - 1.33 mmol/L [facility] Comment: Note: ??Total bilirubin higher than 20 m g/dL may lead to falsely low ionized calcium. CL Whole Blood 103 98 - 107 mmol/L [facility] Gluc Whole Bld 101 65 - 199 mg/dL [facility] Comment: Diabetes: >=200 mg/dL plus symp toms Lactate WB 1.3 0.5 - 2.2 mmol/L [facility] FIO2 Honorio 21 % [facility] BGas Source Venous [facility] Specimen Anatomical Collection Method Collection Time Receive d Time (Source) Location / / Volume Laterality Blood 01/26/2022 12:26 01/26/2022 AM EDT 12:26 AM EDT Beck Sanz MD CHEMISTRY ORDERABLES Performing Organization Address City/[facility]/[place] [address] Scan, Peripheral Blood (01/26/2022 12:20 AM EDT) [facility] Wheretoget Method Time Signature Plat Estimate Decreased [facility] RBC Morphology Abnormal [facility] Polychromasia Present >5/HPF [facility] Pappenheimer Bdy Present >1/HPF [facility] Specimen Anatomical Collection Method Collection Time Receive d Time (Source) Location / / Volume Laterality Blood 01/26/2022 12:20 01/26/2022 AM EDT 12:29 AM EDT Resulting Agency Comment Spec In Lab Cristina Hillman APRN HEMATOLOGY ORDERABLES Performing Organization Address City/State/[place] [address] (ABNORMAL) Differential, Automated (01/26/2022 12:20 AM EDT) [facility] Method Time Signature Neutrophils % 69.3 % [facility] Neutr Abs (ANC) 8.94 (H) 1.70 - [facility] 6.10 [facility] x10(3)/[facility] L LABORATORY Lymphocytes % 13.7 % [facility] Lymphocytes Abs 1.8 0.9 - 3.2 [facility] x10(3)/[facility] LABORATORY Monocytes % 5.7 % [facility] Monocyte Abs 0.7 0.3 - 0.9 [facility] x10(3)/[facility] LABORATORY Eosinophils % 2.0 % [facility] Eosinophils Abs 0.3 0.0 - 0.4 [facility] x10(3)/[facility] LABORATORY Basophils % 0.1 % [facility] Basophils Abs 0.0 0.0 - 0.1 [facility] x10(3)/[facility] LABORATORY Immature Gran % 9.20 % [facility] Comment: Immature granulocytes(IG's)percentage an d absolute count will include metamyelocytes, myelocytes, and promyelo cytes. Blood smears from CBCs yielding IG's will be scanned manually for concor dance. If this scan disagrees with the automated IG or if promyelocytes are not ed, a manual differential will be performed. Gemini Gran Abs 1.19 (H) 0.00 - 0.04 x10(3)/[facility] LABORATORY Specimen Anatomical Collection Method Collection Time Receive d Time (Source) Location / / Volume Laterality Blood 01/26/2022 12:20 01/26/2022 AM EDT 12:29 AM EDT Resulting Agency Comment Spec In Lab Cristina Hillman APRN HEMATOLOGY ORDERABLES Performing Organization Address City/State/[place] [address] (ABNORMAL) Hemogram (01/26/2022 12:20 AM EDT) [facility] gist Method Time Signature WBC 12.9 (H) 4.0 - 9.5 [facility] x10(3)/[facility] LABORATORY RBC 3.53 (L) 4.58 - [facility] 5.54 [facility] x10(6)/[facility] LABORATORY Hemoglobin 11.5 (L) 13.7 - [facility] 16.5 g/dL [facility] Hematocrit 33.2 (L) 40.5 - [facility] MANDO 48.5 % [facility] MCV 94.1 (H) 82.9 - [facility] 93.1 [facility] LABORATORY MCH 32.6 (H) 27.5 - [facility] [place] 32.1 pg [facility] MCHC 34.6 32.0 - [facility] 35.7 g/dL [facility] Platelets 115 (L) 145 - [address] [facility] x[facility](3[facility] LABORATORY RDWSD 43.1 36.0 - [facility] [place] 45.0 [facility] LABORATORY RDWCV 12.4 11.4 - [facility] 13.8 % [facility] MPV 10.6 7.6 - 12.9 [facility] LABORATORY nRBC % Auto 0.2 % [facility] nRBC Abs Auto 0.020 (H) 0.000 - [facility] 0.000 [facility] x10(3)/[facility] LABORATORY Specimen Anatomical Collection Method Collection Time Receive d Time (Source) Location / / Volume Laterality Blood 01/26/2022 12:20 01/26/2022 AM EDT 12:29 AM EDT Resulting Agency Comment Spec In Lab Cristina Hillman APRN HEMATOLOGY ORDERABLES Performing Organization Address City/State/ZIP Code Phon e Number [place] [id number]OSP[address] LAB[address]ATORY Drive (ABNORMAL) Hepatic Function Panel (01/26/2022 12:20 AM EDT) P athologist Signature Total Protein 4.5 (L) 6.1 - 8.0 [facility] g/dL [facility] Albumin 2.3 (L) 3.2 - 5.2 [facility] g/dL [facility] AST 710 (H) 0 - 39 [facility] unit/L [facility] ALT 591 (H) 0 - 55 [facility] unit/L [facility] Alk Phos 56 40 - 130 [facility] unit/L [facility] Total 0.4 0.2 - 1.3 [facility] [place] Bilirubin mg/dL [facility] Bili, Direct 0.2 0.0 - 0.3 [facility] [place] mg/dL [facility] Specimen Anatomical Collection Method Collection Time Receive d Time (Source) Location / / Volume Laterality Blood 01/26/2022 12:20 01/26/2022 AM EDT 12:29 AM EDT Resulting Agency Comment Spec In Lab Cristina Hillman BALL MILL OPERATOR CHEMISTRY ORDERABLES Performing Organization Address City/State/[place] [address] (ABNORMAL) Basic Metabolic Panel (non-fasting) (01/26/2022 12:20 AM EDT) athologist Signature Glucose Lvl 104 65 - 199 [facility] mg/dL [facility] Comment: Diabetes: >=200 mg/dL plus symp toms BUN 26 (H) 10 - 20 mg/dL [facility] Creatinine 1.89 (H) 0.80 - 1.50 mg/dL [facility] Sodium 137 135 - 145 mmol/L [facility] Potassium 4.6 3.5 - 5.0 mmol/L [facility] Comment: Please note: ??Patients with WBC >100,00 0 may have falsely elevated Potassium levels. ??For accurate Potassium quantif ication in these patients send serum separator tube (gold top) for subsequent determinations. ??Contact the Clinical Chemistry Laboratory if there are any qu estions. Chloride 103 98 - 107 mmol/L [facility] CO2 27 22 - 31 mmol/L [facility] Anion Gap 7 5 - 15 mmol/L [facility] Calcium 8.3 (L) 8.5 - 10.5 mg/dL [facility] Estimated GFR 48 (L) >=60 mL/min/1.73 m?? [facility] Comment: This patient's estimated [...] Organization Address City/State/ZIP Code Phon e Number [address] Phosphorus (01/26/2022 12:20 AM EDT) P athologist Signature Phosphorus 3.0 2.5 - 4.5 [facility] Specimen Anatomical Collection Method Collection Time Receive d Time (Source) Location / / Volume Laterality Blood 01/26/2022 12:20 01/26/2022 AM EDT 12:29 AM EDT Resulting Agency Comment Spec In Lab Gela Novak MD CHEMISTRY ORDERABLES Performing Organization Address City/[facility]/ZIP Code Phon e Number [address] Magnesium (01/26/2022 12:20 AM EDT) P athologist Signature Magnesium 0.85 0.69 - 1.07 [facility]/L [facility] Specimen Anatomical Collection Method Collection Time Receive d Time (Source) Location / / Volume Laterality Blood 01/26/2022 12:20 01/26/2022 AM EDT 12:29 AM EDT Resulting Agency Comment Spec In Lab Gela Novak MD CHEMISTRY ORDERABLES Performing Organization Address City/[facility]/[place] [address] Triglyceride (01/26/2022 12:20 AM EDT) P athologist Signature Triglycerides 359 mg/dL [facility] Comment: Average Risk/Lower Risk: <150 mg/dL Borderline High Risk: 150-199 mg/dL High Risk: 200-499 mg/dL Very High Risk: >hk=388 mg/dL Specimen Anatomical Collection Method Collection Time Receive d Time (Source) Location / / Volume Laterality Blood 01/26/2022 12:20 01/26/2022 AM EDT 12:29 AM EDT Resulting Agency Comment Spec In Lab Beck Sanz MD CHEMISTRY ORDERABLES Performing Organization Address City/State/ZIP Code Phon e Number [address] POCT Glucose (01/26/2022 12:01 AM EDT) athologist Signature POC Glucose 94 65 - 199 [facility]/dL [facility] Comment: Supplemental ranges: <140 mg/dL before meals <180 mg/dL all other times of the day Specimen Anatomical Collection Method Collection Time Receive d Time (Source) Location / / Volume Laterality Blood 01/26/2022 12:01 01/26/2022 AM EDT 12:01 AM EDT Beck Sanz MD POINT OF CARE TEST ORDERABLE S Performing Organization Address City/[facility]/ZIP Code Phon e Number [address] POCT Glucose (01/25/2022 8:08 PM EDT) athologist Signature POC Glucose 101 65 - 199 [facility] mg/dL [facility] Comment: Supplemental ranges: <140 mg/dL before meals <180 mg/dL all other times of the day Specimen Anatomical Collection Method Collection Time Receive d Time (Source) Location / / Volume Laterality Blood 01/25/2022 8:08 PM 8:08 EDT PM EDT Beck Sanz MD POINT OF CARE TEST ORDERABLE S Performing Organization Address City/[facility]/ZIP Code Phon e Number [address] (ABNORMAL) BLOOD GAS 2 VENOUS (01/25/2022 6:07 PM EDT) athologist Signature pH Honorio 7.37 7.32 [facility] 7.42 [facility] pCO2 Honorio 45 41 - 51 [facility] LABORATORY pO2 Honorio 31 25 - 40 [facility] LABORATORY HCO3 Honorio 25.5 mmol/L [facility] BE Honorio 0.2 mmol/L [facility] Hgb Blood Gas 14.1 13.7 - [facility] 16.5 g/dL [facility] O2HB Honorio 59.1 % [facility] COHB Honorio 1.3 % [facility] Comment: Nonsmokers: 0.5-1.5% COHB Smokers: Variable, but usually less than 10% Toxic: 20-30% COHB Lethal: Greater than 60% COHB METHB Honorio 0.0 <=1.5 % [facility] Na Whole Blood 132 (L) 135 - 145 mmol/L [facility] K Whole Blood 4.4 3.5 - 5.0 mmol/L [facility] Comment: Please note: Patients with WBC >100,000 may have falsely elevated Potassium levels. Contact the Clinical Chemistry L aboratory if there are any questions. ICa Whole Blood 1.20 1.15 - 1.33 mmol/L [facility] Comment: Note: ??Total bilirubin higher than 20 m g/dL may lead to falsely low ionized calcium. CL Whole Blood 102 98 - 107 mmol/L [facility] Gluc Whole Bld 119 65 - 199 mg/dL [facility] Comment: Diabetes: >=200 mg/dL plus symp toms Lactate WB 1.0 0.5 - 2.2 mmol/L [facility] FIO2 Honorio 21 % [facility] BGas Source Central Venous [facility] Specimen Anatomical Collection Method Collection Time Receive d Time (Source) Location / / Volume Laterality Blood 01/25/2022 6:07 PM 6:07 EDT PM EDT Beck Sanz MD CHEMISTRY ORDERABLES Performing Organization Address City/State/[place] [address] (ABNORMAL) CK (01/25/2022 6:00 PM EDT) athologist Signature CK, Total 32,675 (H) 0 - 200 [facility] unit/L [facility] Specimen Anatomical Collection Method Collection Time Receive d Time (Source) Location / / Volume Laterality Blood 01/25/2022 6:00 PM 2 6:12 EDT PM EDT Resulting Agency Comment Spec In Lab Cristina Hillman BALL MILL OPERATOR CHEMISTRY ORDERABLES Performing Organization Address City/State/ZIP Code Phon e Number [address] POCT Glucose (01/25/2022 4:09 PM EDT) athologist [facility] POC Glucose 103 65 - 199 [facility] mg/dL [facility] Comment: Supplemental ranges: <140 mg/dL before meals <180 mg/dL all other times of the day Specimen Anatomical Collection Method Collection Time Receive d Time (Source) Location / / Volume Laterality Blood 01/25/2022 4:09 PM 2 4:09 EDT PM EDT Beck Sanz MD POINT OF CARE TEST ORDERABLE S Performing Organization Address City/State/[place] [address] (ABNORMAL) BLOOD GAS 2 VENOUS (01/25/2022 11:59 AM EDT) Analysis Performed At Patho logist Time Signature pH Honorio 7.40 7.32 - [facility] 7.42 [facility] pCO2 Honorio 45 41 - 51 [facility] LABORATORY pO2 Honorio 34 25 - 40 [facility] LABORATORY HCO3 Honorio 27.0 mmol/L [facility] BE Honorio 2.2 mmol/L [facility] Hgb Blood Gas 12.2 (L) 13.7 - [facility] 16.5 g/dL [facility] O2HB Honorio 64.3 % [facility] COHB Honorio 0.2 % [facility] Comment: Nonsmokers: 0.5-1.5% COHB Smokers: Variable, but usually less than 10% Toxic: 20-30% COHB Lethal: Greater than 60% COHB METHB Honorio 0.3 <=1.5 % [facility] Na Whole Blood 132 (L) 135 - 145 mmol/L [facility] K Whole Blood 4.6 3.5 - 5.0 mmol/L [facility] Comment: Please note: Patients with WBC >100,000 may have falsely elevated Potassium levels. Contact the Clinical Chemistry L aboratory if there are any questions. ICa Whole Blood 1.22 1.15 - 1.33 mmol/L [facility] Comment: Note: ??Total bilirubin higher than 20 m g/dL may lead to falsely low ionized calcium. CL Whole Blood 103 98 - 107 mmol/L [facility] Gluc Whole Bld 115 65 - 199 mg/dL [facility] Comment: Diabetes: >=200 mg/dL plus symp toms Lactate WB 1.3 0.5 - 2.2 mmol/L [facility] FIO2 Honorio 21 % [facility] BGas Source Central Venous [facility] Specimen Anatomical Collection Method Collection Time Receive d Time (Source) Location / / Volume Laterality Blood 01/25/2022 11:59 01/25/2022 AM EDT 11:59 AM EDT Beck Sanz MD CHEMISTRY ORDERABLES Performing Organization Address City/[facility] [place] [address] POCT Glucose (01/25/2022 11:56 AM EDT) P athologist Signature POC Glucose 88 65 - 199 [facility] mg/dL [facility] Comment: Supplemental ranges: <140 mg/dL before meals <180 mg/dL all other times of the day Specimen Anatomical Collection Method Collection Time Receive d Time (Source) Location / / Volume Laterality Blood 01/25/2022 11:56 01/25/2022 AM EDT 11:56 AM EDT Beck Sanz MD POINT OF CARE TEST ORDERABLE S Performing Organization Address City/State/[place] [address] Phosphorus (01/25/2022 11:55 AM EDT) P athologist Signature Phosphorus 2.7 2.5 - 4.5 [facility] [place] mg/dL [facility] Specimen Anatomical Collection Method Collection Time Receive d Time (Source) Location / / Volume Laterality Blood 01/25/2022 11:55 01/25/2022 AM EDT 12:05 PM EDT Resulting Agency Comment Spec In Lab Angelina Reynoso MD CHEMISTRY ORDERABLES Performing Organization Address City/State/ZIP Code Phon e Number [address] Magnesium (01/25/2022 11:55 AM EDT) P athologist Signature Magnesium 0.80 0.69 - 1.07 [facility] MAND[facility] mmol/L [facility] Specimen Anatomical Collection Method Collection Time Receive d Time (Source) Location / / Volume Laterality Blood 01/25/2022 11:55 01/25/2022 AM EDT 12:05 PM EDT Resulting Agency Comment Spec In Lab Angelina Reynoso MD CHEMISTRY ORDERABLES Performing Organization Address City/State/ZIP Code Phon e Number [address] (ABNORMAL) Creatinine (01/25/2022 11:55 AM EDT) Analysis Performed At Patho logist Time Signature Creatinine 2.06 (H) 0.80 - [facility] [place] 1.50 mg/dL [facility] Estimated GFR 44 (L) >=60 [facility] [place] mL/min/1.7 [facility] 3 ?? [facility] Comment: This patient's estimated GFR was [...] Reynoso MD CHEMISTRY ORDERABLES Performing Organization Address City/[facility]/ZIP Code Phon e Number [address] (ABNORMAL) BUN (01/25/2022 11:55 AM EDT) P athologist Signature BUN 28 (H) 10 - [address] [facility] [facility] mg/dL [facility] Specimen Anatomical Collection Method Collection Time Receive d Time (Source) Location / / Volume Laterality Blood 01/25/2022 11:55 01/25/2022 AM EDT 12:05 PM EDT Resulting Agency Comment Spec In Lab Angelina Reynoso MD CHEMISTRY ORDERABLES Performing Organization Address City/[facility]/[place] [address] Electrolytes panel (01/25/2022 11:55 AM EDT) P athologist Signature Sodium 137 135 - 145 [facility] mmol/L [facility] Potassium 4.7 3.5 - 5.0 [facility] mmol/L [facility] Comment: Please note: ??Patients with WBC >100,00 0 may have falsely elevated Potassium levels. ??For accurate Potassium quantif ication in these patients send serum separator tube (gold top) for subsequent determinations. ??Contact the Clinical Chemistry Laboratory if there are any qu estions. Chloride 104 98 - 107 mmol/L [facility] CO2 25 22 - 31 mmol/L [facility] Anion Gap 8 5 - 15 mmol/L [facility] Specimen Anatomical Collection Method Collection Time Receive d Time (Source) Location / / Volume Laterality Blood 01/25/2022 11:55 01/25/2022 AM EDT 12:05 PM EDT Resulting Agency Comment Spec In Lab Angelina Reynoso MD CHEMISTRY ORDERABLES Performing Organization Address City/State/[place] [address] (ABNORMAL) CK (01/25/2022 11:55 AM EDT) athologist [employer] CK, Total 36,897 (H) 0 - 200 [facility] unit/[facility] LABORATORY Specimen Anatomical Collection Method Collection Time Receive d Time (Source) Location / / Volume Laterality Blood 01/25/2022 11:55 01/25/2022 AM EDT 12:05 PM EDT Resulting Agency Comment Spec In Lab Gemma B Pentland BALL MILL OPERATOR CHEMISTRY ORDERABLES Performing Organization Address City/[facility]/[place] [address] POCT Glucose (01/25/2022 8:31 AM EDT) [facility] POC Glucose 113 65 - [address] mg/dL [facility] Comment: Supplemental ranges: <140 mg/dL before meals <180 mg/dL all other times of the day Specimen Anatomical Collection Method Collection Time Receive d Time (Source) Location / / Volume Laterality Blood 01/25/2022 8:31 AM 2 8:31 EDT AM EDT Tex Robles MD POINT OF CARE TEST ORDERABLE S Performing Organization Address City/[facility]/[place] [address] (ABNORMAL) CK (01/25/2022 8:20 AM EDT) athologist [facility] CK, Total 36,878 (H) 0 - 200 [facility] LABORATORY Specimen Anatomical Collection Method Collection Time Receive d Time (Source) Location / / Volume Laterality Blood 01/25/2022 8:20 AM 2 8:37 EDT AM EDT Resulting Agency Comment Spec In Lab Gemma B Pentland BALL MILL OPERATOR CHEMISTRY ORDERABLES Performing Organization Address City/[facility]/[place] [address] (ABNORMAL) BLOOD GAS 2 ARTERIAL (01/25/2022 6:22 AM EDT) Analysis Performed At Patho logist Time Signature pH Art 7.45 7.35 - [facility] 7.45 [facility] pCO2 Art 33 (L) 35 - 45 [facility] mmHg [facility] pO2 Art 114 (H) 85 - 104 [facility] LABORATORY HCO3 Art 22.4 20.0 - [facility] 26.0 [facility] mmol/L [facility] BE Art -1.6 -3.0 - 3.0 [facility] mmol/L [facility] Hgb Blood Gas 13.3 (L) 13.7 - [facility] 16.5 g/dL [facility] O2HB Art 97.0 94.0 - [facility] 97.0 % [facility] COHB Art 0.3 % [facility] Comment: Nonsmokers: 0.5-1.5% COHB Smokers: Variable, but usually less than 10% Toxic: 20-30% COHB Lethal: Greater than 60% COHB METHB Art 0.2 <=1.5 % [facility] Na Whole Blood 131 (L) 135 - 145 mmol/L [facility] K Whole Blood 5.0 3.5 - 5.0 mmol/L [facility] Comment: Please note: Patients with WBC >100,000 may have falsely elevated Potassium levels. Contact the Clinical Chemistry L aboratory if there are any questions. ICa Whole Blood 1.21 1.15 - 1.33 mmol/L [facility] Comment: Note: ??Total bilirubin higher than 20 m g/dL may lead to falsely low ionized calcium. CL Whole Blood 103 98 - 107 mmol/L [facility] Gluc Whole Bld 122 65 - 199 mg/dL [facility] Comment: Diabetes: >=200 mg/dL plus symp toms. Lactate WB 1.3 0.5 - 2.2 mmol/L [facility] FIO2 Art 35 % [facility] PF Ratio Art 326 [facility] LABORATORY Specimen Anatomical Collection Method Collection Time Receive d Time (Source) Location / / Volume Laterality Blood 01/25/2022 6:22 AM 2 6:22 EDT AM EDT Tex Robles MD CHEMISTRY ORDERABLES Performing Organization Address City/State/ZIP Code Phon e Number [address] POCT Glucose (01/25/2022 3:49 AM EDT) P athologist Signature POC Glucose 121 65 - 199 [facility] mg/dL [facility] Comment: Supplemental ranges: <140 mg/dL before meals <180 mg/dL all other times of the day Specimen Anatomical Collection Method Collection Time Receive d Time (Source) Location / / Volume Laterality Blood 01/25/2022 3:49 AM 2 3:49 EDT AM EDT Tex Robles MD POINT OF CARE TEST ORDERABLE S Performing Organization Address City/[facility]/ZIP Code Phon e Number [address] Scan, Peripheral Blood (01/25/2022 12:30 AM EDT) [facility] Whe[facility]et Method Time Signature Plat Estimate Decreased [facility] RBC Morphology Normal [facility] Specimen Anatomical Collection Method Collection Time Receive d Time (Source) Location / / Volume Laterality Blood 01/25/2022 12:30 01/25/2022 AM EDT 12:39 AM EDT Resulting Agency Comment Spec In Lab Cristina Hillman APRN HEMATOLOGY ORDERABLES Performing Organization Address City/State/[place] [address] (ABNORMAL) Differential, Automated (01/25/2022 12:30 AM EDT) [facility] [place] Method Time Signature Neutrophils % 77.1 % [facility] Neutr Abs (ANC) 6.61 (H) 1.70 - [facility] 6.10 [facility] x10(3)/[facility] L LABORATORY Lymphocytes % 12.9 % [facility] Lymphocytes Abs 1.1 0.9 - 3.2 [facility] x10(3)/[facility] LABORATORY Monocytes % 7.5 % [facility] Monocyte Abs 0.6 0.3 - 0.9 [facility] x10(3)/[facility] LABORATORY Eosinophils % 0.3 % [facility] Eosinophils Abs 0.0 0.0 - 0.4 [facility] x10(3)/[facility] LABORATORY Basophils % 0.3 % [facility] Basophils Abs 0.0 0.0 - 0.1 [facility] x10(3)/[facility] LABORATORY Immature Gran % 1.90 % [facility] Comment: Immature granulocytes(IG's)percentage an d absolute count will include metamyelocytes, myelocytes, and promyelo cytes. Blood smears from CBCs yielding IG's will be scanned manually for concor dance. If this scan disagrees with the automated IG or if promyelocytes are not ed, a manual differential will be performed. Gemini Gran Abs 0.16 (H) 0.00 - 0.04 x10(3)/[facility] LABORATORY Specimen Anatomical Collection Method Collection Time Receive d Time (Source) Location / / Volume Laterality Blood 01/25/2022 12:30 01/25/2022 AM EDT 12:39 AM EDT Resulting Agency Comment Spec In Lab Cristina Hillman BALL MILL OPERATOR HEMATOLOGY ORDERABLES Performing Organization Address City/State/[place] [address] (ABNORMAL) Hemogram (01/25/2022 12:30 AM EDT) Analysis Performed At Patho logist Time Signature WBC 8.6 4.0 - 9.5 [facility] x10(3)/[facility] LABORATORY RBC 3.39 (L) 4.58 - [facility] 5.54 [facility] x10(6)/[facility] LABORATORY Hemoglobin 11.0 (L) 13.7 - [facility] 16.5 g/dL [facility] Hematocrit 31.2 (L) 40.5 - [facility] 48.5 % [facility] MCV 92.0 82.9 - [facility] 93.1 [facility] LABORATORY MCH 32.4 (H) 27.5 - [facility] M[facility] 32.1 pg [facility] MCHC 35.3 32.0 - [facility] 35.7 g/dL [facility] Platelets 88 (L) 145 - 357 [facility] x10(3)/[facility] LABORATORY RDWSD 41.2 36.0 - [facility] M[facility] 45.0 [facility] LABORATORY RDWCV 12.2 11.4 - [facility] 13.8 % [facility] MPV 10.6 7.6 - 12.9 [facility] LABORATORY nRBC % Auto 0.0 % [facility] nRBC Abs Auto 0.000 0.000 - [facility] 0.000 [facility] x10(3)/[facility] LABORATORY Specimen Anatomical Collection Method Collection Time Receive d Time (Source) Location / / Volume Laterality Blood 01/25/2022 12:30 01/25/2022 AM EDT 12:39 AM EDT Resulting Agency Comment Spec In Lab Gemma B Pentland BALL MILL OPERATOR HEMATOLOGY ORDERABLES Performing Organization Address City/State/ZIP Code Phon e Number [address] (ABNORMAL) CK (01/25/2022 12:30 AM EDT) P athologist Signature CK, Total 42,239 (H) 0 - 200 [facility] unit/L [facility] Specimen Anatomical Collection Method Collection Time Receive d Time (Source) Location / / Volume Laterality Blood 01/25/2022 12:30 01/25/2022 AM EDT 12:39 AM EDT Resulting Agency Comment Spec In Lab Gemma B Pentland BALL MILL OPERATOR CHEMISTRY ORDERABLES Performing Organization Address City/State/ZIP Code Phon e Number [address] (ABNORMAL) Hepatic Function Panel (01/25/2022 12:30 AM EDT) P athologist Signature Total Protein 4.1 (L) 6.1 - 8.0 [facility] g/dL [facility] Albumin 2.0 (L) 3.2 - 5.2 [facility] g/dL [facility] AST 797 (H) 0 - 39 [facility] unit/L [facility] ALT 583 (H) 0 - 55 [facility] unit/L [facility] Alk Phos 51 40 - [address] [facility] unit/L [facility] Total 0.3 0.2 - 1.[address] [facility] Bilirubin mg/dL [facility] Bili, Direct 0.1 0.0 - 0.[address] [facility] mg/dL [facility] Specimen Anatomical Collection Method Collection Time Receive d Time (Source) Location / / Volume Laterality Blood 01/25/2022 12:30 01/25/2022 AM EDT 12:39 AM EDT Resulting Agency Comment Spec In Lab Cristina Hillman APRN CHEMISTRY ORDERABLES Performing Organization Address City/State/[place] [address] (ABNORMAL) Basic Metabolic Panel (non-fasting) (01/25/2022 12:30 AM EDT) P athologist Signature Glucose Lvl 129 65 - 199 [facility] mg/dL [facility] Comment: Diabetes: >=200 mg/dL plus symp toms BUN 30 (H) 10 - 20 mg/dL [facility] Creatinine 2.39 (H) 0.80 - 1.50 mg/dL [facility] Sodium 135 135 - 145 mmol/L [facility] Potassium 5.0 3.5 - 5.0 mmol/L [facility] Comment: Please note: ??Patients with WBC >100,00 0 may have falsely elevated Potassium levels. ??For accurate Potassium quantif ication in these patients send serum separator tube (gold top) for subsequent determinations. ??Contact the Clinical Chemistry Laboratory if there are any qu estions. Chloride 105 98 - 107 mmol/L [facility] CO2 24 22 - 31 mmol/L [facility] Anion Gap 6 5 - 15 mmol/L [facility] Calcium 8.2 (L) 8.5 - 10.5 mg/dL [facility] Estimated GFR 36 (L) >=60 mL/min/1.73 m?? [facility] Comment: This patient's estimated [...] Organization Address City/State/ZIP Code Phon e Number [address] Phosphorus (01/25/2022 12:30 AM EDT) P athologist Signature Phosphorus 3.9 2.5 - 4.5 [facility] mg/dL [facility] Specimen Anatomical Collection Method Collection Time Receive d Time (Source) Location / / Volume Laterality Blood 01/25/2022 12:30 01/25/2022 AM EDT 12:39 AM EDT Resulting Agency Comment Spec In Lab Gela Novak MD CHEMISTRY ORDERABLES Performing Organization Address City/State/ZIP Code Phon e Number [address] Magnesium (01/25/2022 12:30 AM EDT) P athologist Signature Magnesium 0.89 0.69 - 1.07 [facility] mmol/L [facility] Specimen Anatomical Collection Method Collection Time Receive d Time (Source) Location / / Volume Laterality Blood 01/25/2022 12:30 01/25/2022 AM EDT 12:39 AM EDT Resulting Agency Comment Spec In Lab Gela Novak MD CHEMISTRY ORDERABLES Performing Organization Address City/[facility]/ZIP Code Phon e Number [address] POCT Glucose (01/25/2022 12:19 AM EDT) athologist Signature POC Glucose 126 65 - [address] [facility] [facility] [address] mg/dL [facility] Comment: Supplemental ranges: <140 mg/dL before meals <180 mg/dL all other times of the day Specimen Anatomical Collection Method Collection Time Receive d Time (Source) Location / / Volume Laterality Blood 01/25/2022 12:19 01/25/2022 AM EDT 12:19 AM EDT Tex Robles MD POINT OF CARE TEST ORDERABLE S Performing Organization Address City/[facility]/[place] [address] Angiogram Carotids (01/24/2022 [...] who have questions please contact the health memory care program director that requested your imaging first. ? Narrative 01/25/2022 10:26 AM EDT EXAMINATION: CT ANGIOGRAM [place], [place] ANGIOGRAM CAROTIDS CLINICAL HISTORY: [...] different from the original. EXAMINATION: CT ANGIOGRAM [place], CT ANGIOGRAM CAROTIDS CLINICAL [...] ho have questions please contact the health memory care program director that requested your imaging first. Agnieszka López BALL MILL OPERATOR IMG CT ORDERABLES CT Angiogram [place] (01/24/2022 11:32 PM EDT) Anatomical [...] who have questions please contact the health memory care program director that requested your imaging first. ? Narrative 01/25/2022 10:26 AM EDT EXAMINATION: CT ANGIOGRAM [place], CT ANGIOGRAM CAROTIDS CLINICAL HISTORY: [...] different from the original. EXAMINATION: CT ANGIOGRAM [place], CT ANGIOGRAM CAROTIDS CLINICAL [...] ho have questions please contact the health memory care program director that requested your imaging first. Agnieszkaeliseo López BALL MILL OPERATOR IMG CT ORDERABLES POCT Glucose (01/24/2022 8:11 PM EDT) athologist Signature POC Glucose 135 65 - 199 [facility] mg/dL [facility] Comment: Supplemental ranges: <140 mg/dL before meals <180 mg/dL all other times of the day Specimen Anatomical Collection Method Collection Time Receive d Time (Source) Location / / Volume Laterality Blood 01/24/2022 8:11 PM 2 8:11 EDT PM EDT Tex Robles MD POINT OF CARE TEST ORDERABLE S Performing Organization Address City/State/[place] [address] (ABNORMAL) CK (01/24/2022 6:20 PM EDT) athologist Signature CK, Total 50,445 (H) 0 - 200 [facility] unit/[facility] LABORATORY Specimen Anatomical Collection Method Collection Time Receive d Time (Source) Location / / Volume Laterality Blood 01/24/2022 6:20 PM 2 6:27 EDT PM EDT Resulting Agency Comment Spec In Lab Gemma Sal Pentland BALL MILL OPERATOR CHEMISTRY ORDERABLES Performing Organization Address City/State/[place] [address] MRI Brain wo Contrast [...] who have questions please contact the health memory care program director that requested your imaging first. ? Electronically signed by: Bernadine Edward [facility] ([phone]), at 01/24/2022 4:39 PM Narrative 01/24/2022 4:39 [...] ho have questions please contact the health memory care program director that requested your imaging first. Cristina Hillman BALL MILL OPERATOR IMG MRI ORDERABLES MRSA PCR (01/24/2022 1:10 PM EDT) [facility] gist Method Time Signature MRSA Result Negative Negative [facility] MRSA Interp Negative for methicillin-resistant Staphylococcus aureus (MRSA) [facility] This test was performed using the GenePlay[employer]?? Dx System an d the Xpert MRSA MEMORIAL Assay. The MRSA target DNA was not detec karina. The sample processing control and HOSPITAL probe check were valid. The performance of this test was determined by the [facility] Molecular Pathology Laboratory. It has been [...] Organization Address City/State/[place] [address] (ABNORMAL) CK (01/24/2022 12:14 PM EDT) athologist Signature CK, Total 61,457 (H) 0 - 200 [facility] unit/L [facility] Specimen Anatomical Collection Method Collection Time Receive d Time (Source) Location / / Volume Laterality Blood 01/24/2022 12:14 01/24/2022 1:00 PM EDT PM EDT Resulting Agency Comment Spec In Lab Gemma B Alycialand BALL MILL OPERATOR CHEMISTRY ORDERABLES Performing Organization Address City/State/ZIP Code Phon e Number [address] POCT Glucose (01/24/2022 12:13 PM EDT) athologist Signature POC Glucose 132 65 - 199 [facility] mg/dL [facility] Comment: Supplemental ranges: <140 mg/dL before meals <180 mg/dL all other times of the day Specimen Anatomical Collection Method Collection Time Receive d Time (Source) Location / / Volume Laterality Blood 01/24/2022 12:13 01/24/2022 PM EDT 12:13 PM EDT Tex Robles MD POINT OF CARE TEST ORDERABLE S Performing Organization Address City/State/[place] [address] ECHOCARDIO[address] COMPLETE W CONTRAST (01/24/2022 9:30 AM EDT) Anatomical Region Laterality Modality Cardiac Other Specimen (Source) Anatomical Collection Method Collection Time Re ceived Time Location / / Volume Laterality 01/23/2022 12:16 PM EDT Narrative 01/24/2022 11:52 AM EDT [facility] ?[address] ? [place] [address] ?Voice: ?Fax: ? Echocardiogram Report Name: ALIX HOLLAND ?Study Date : 01/23/2022 12:16 PM ?BP: 96/65 mmHg ?[facility] 1990 ?Height: 183 cm ? Account: [id number] Age: 31 yrs ?Weigh t: 102 kg [...] 05/03/2018, the prior LVEF was normal. Procedure Complete-93192. Right ventricular strain . Image enhancement Optison [...] note might [place] [address] Voice: Fax: Echocardiogram Report Name: ALIX HOLLAND Study Date: 2021 12:16 PM BP: 96/65 mmHg Patient Location: [facility] I C43 A : 1990 Height: 183 cm Account: [id number] Age: 31 yrs Weight: 102 kg Gender: [...] 05/03/2018, the prior LVEF was normal. Procedure Complete-[id number]. Right ventricular strain . Image enhancement Optison [...] POCT Glucose (01/24/2022 8:39 AM EDT) athologist [facility] POC Glucose 122 65 - 199 [facility] mg/dL [facility] Comment: Supplemental ranges: <140 mg/dL before meals <180 mg/dL all other times of the day Specimen Anatomical Collection Method Collection Time Receive d Time (Source) Location / / Volume Laterality Blood 01/24/2022 8:39 AM 2 8:39 EDT AM EDT Tex Robles MD POINT OF CARE TEST ORDERABLE S Performing Organization Address City/State/[place] [address] (ABNORMAL) CK (01/24/2022 6:25 AM EDT) athologist [facility] CK, Total 84,528 (H) 0 - 200 [facility] unit/L [facility] Specimen Anatomical Collection Method Collection Time Receive d Time (Source) Location / / Volume Laterality Blood 01/24/2022 6:25 AM 2 6:40 EDT AM EDT Resulting Agency Comment Spec In Lab Tex Robles MD CHEMISTRY ORDERABLES Performing Organization Address City/State/[place] [address] Electrolytes panel (01/24/2022 6:25 AM EDT) athologist [facility] Sodium 136 135 - [address] [facility] [facility] mmol/L [facility] Potassium 4.4 3.5 - 5.0 [facility] mmol/L [facility] Comment: Please note: ??Patients with WBC >100,00 0 may have falsely elevated Potassium levels. ??For accurate Potassium quantif ication in these patients send serum separator tube (gold top) for subsequent determinations. ??Contact the Clinical Chemistry Laboratory if there are any qu estions. Chloride 103 98 - 107 mmol/L [facility] CO2 22 22 - 31 mmol/L [facility] Anion Gap 11 5 - 15 mmol/L [facility] Specimen Anatomical Collection Method Collection Time Receive d Time (Source) Location / / Volume Laterality Blood 01/24/2022 6:25 AM 6:40 EDT AM EDT Resulting Agency Comment Spec In Lab Angelina Reynoso MD CHEMISTRY ORDERABLES Performing Organization Address City/State/[place] [address] (ABNORMAL) Blood Gas Arterial (NL[facility]) (01/24/2022 6:20 AM EDT) Analysis Performed At Patho logist Time Signature pH Art 7.48 (H) 7.35 - [facility] 7.45 [facility] pCO2 Art 29 (L) 35 - 45 [facility] LABORATORY pO2 Art 68 (L) 85 - 104 [facility] LABORATORY HCO3 Art 21.1 20.0 - [facility] 26.0 [facility] mmol/[facility] LABORATORY BE Art -2.3 -3.0 - 3.0 [facility] mmol/L [facility] Hgb Blood Gas 14.7 13.7 - [facility] 16.5 g/dL [facility] O2HB Art 91.8 (L) 94.0 - [facility] 97.0 % [facility] COHB Art 0.8 % [facility] Comment: Nonsmokers: ??0.5-1.5% COHB Smokers: ??Variable, but usually less th an 10% Toxic: 20 - 30% COHB Lethal: ??Greater than 60% COHB METHB Art 0.3 <=1.5 % [facility] LABOR[facility] Na Whole Blood 133 (L) 135 - 145 mmol/L [facility] K Whole Blood 4.3 3.5 - 5.0 mmol/L [facility] Comment: Please note: ??Patients with WBC >100,00 0 may have falsely elevated Potassium levels. ??Contact the Clinical Chemistry Laboratory if there are any questions. ICa Whole Blood 1.16 1.15 - 1.33 mmol/L [facility] Comment: Note: ??Total bilirubin higher than 20 m g/dL may lead to falsely low ionized calcium. CL Whole Blood 103 98 - 107 mmol/L [facility] Gluc Whole Bld 134 65 - 199 mg/dL [facility] Comment: Diabetes: >=200 mg/dL plus symp toms. Lactate WB 1.9 0.5 - 2.2 mmol/L [facility] LABORATORY Specimen Anatomical Collection Method Collection Time Receive d Time (Source) Location / / Volume Laterality Blood Arterial Draw / 01/24/2022 6:20 AM 2021 6:30 Unknown EDT AM EDT Resulting Agency Comment Spec In Lab Angelina Reynoso MD CHEMISTRY ORDERABLES Performing Organization Address City/State/[place] [address] POCT Glucose (01/24/2022 4:06 AM EDT) P athologist Signature POC Glucose 103 65 - 199 [facility] mg/dL [facility] Comment: Supplemental ranges: <140 mg/dL before meals <180 mg/dL all other times of the day Specimen Anatomical Collection Method Collection Time Receive d Time (Source) Location / / Volume Laterality Blood 01/24/2022 4:06 AM 4:06 EDT AM EDT Tex Robles MD POINT OF CARE TEST ORDERABLE S Performing Organization Address City/State/[place] [address] (ABNORMAL) Differential, Automated (01/24/2022 12:18 AM EDT) Patholo gist Method Time Signature Neutrophils % 77.0 % [facility] Neutr Abs (ANC) 8.76 (H) 1.70 - [facility] 6.10 [facility] x10(3)/[facility] L LABORATORY Lymphocytes % 13.0 % [facility] Lymphocytes Abs 1.5 0.9 - 3.2 [facility] x10(3)/[facility] LABORATORY Monocytes % 8.0 % [facility] Monocyte Abs 0.9 0.3 - 0.9 [facility] x10(3)/[facility] LABORATORY Eosinophils % 0.4 % [facility] Eosinophils Abs 0.0 0.0 - 0.4 [facility] x10(3)/[facility] LABORATORY Basophils % 0.4 % [facility] Basophils Abs 0.0 0.0 - 0.1 [facility] x10(3)/[facility] LABORATORY Immature Gran % 1.20 % [facility] Comment: Immature granulocytes(IG's)percentage an d absolute count will include metamyelocytes, myelocytes, and promyelo cytes. Blood smears from CBCs yielding IG's will be scanned manually for concor dance. If this scan disagrees with the automated IG or if promyelocytes are not ed, a manual differential will be performed. Gemini Gran Abs 0.14 (H) 0.00 - 0.04 x10(3)/[facility] LABORATORY Specimen Anatomical Collection Method Collection Time Receive d Time (Source) Location / / Volume Laterality Blood 01/24/2022 12:18 01/24/2022 AM EDT 12:25 AM EDT Resulting Agency Comment Spec In Lab Cristina Hillman APRN HEMATOLOGY ORDERABLES Performing Organization Address City/State/[place] [address] (ABNORMAL) Hemogram (01/24/2022 12:18 AM EDT) Analysis Performed At Patho logist Time Signature WBC 11.4 (H) 4.0 - 9.5 [facility] x10(3)/[facility] LABORATORY RBC 4.66 4.58 - [facility] 5.54 [facility] x10(6)/[facility] LABORATORY Hemoglobin 14.8 13.7 - [facility] 16.5 g/dL [facility] Hematocrit 41.7 40.5 - [facility] 48.5 % [facility] MCV 89.5 82.9 - [facility] 93.1 [facility] LABORATORY MCH 31.8 27.5 - [facility] 32.1 pg [facility] MCHC 35.5 32.0 - [facility] 35.7 g/dL [facility] Platelets 136 (L) 145 - 357 [facility] x10(3)/[facility] LABORATORY RDWSD 40.0 36.0 - [facility] 45.0 [facility] LABORATORY RDWCV 12.3 11.4 - [facility] 13.8 % [facility] MPV 10.1 7.6 - 12.9 [facility] LABORATORY nRBC % Auto 0.0 % [facility] nRBC Abs Auto 0.000 0.000 - [facility] 0.000 [facility] x10(3)/[facility] LABORATORY Specimen Anatomical Collection Method Collection Time Receive d Time (Source) Location / / Volume Laterality Blood 01/24/2022 12:18 01/24/2022 AM EDT 12:25 AM EDT Resulting Agency Comment Spec In Lab [facility] Performing Organization Address City/State/[place] [address] (ABNORMAL) Basic Metabolic Panel (non-fasting) (01/24/2022 12:18 AM EDT) P athologist Signature Glucose Lvl 164 65 - 199 [facility] mg/dL [facility] Comment: Diabetes: >=200 mg/dL plus symp toms BUN 31 (H) 10 - 20 mg/dL [facility] Creatinine 3.00 (H) 0.80 - 1.50 mg/dL [facility] Sodium 138 135 - 145 mmol/L [facility] Potassium 4.7 3.5 - 5.0 mmol/L [facility] Comment: Please note: ??Patients with WBC >100,00 0 may have falsely elevated Potassium levels. ??For accurate Potassium quantif ication in these patients send serum separator tube (gold top) for subsequent determinations. ??Contact the Clinical Chemistry Laboratory if there are any qu estions. Chloride 103 98 - 107 mmol/L [facility] CO2 21 (L) 22 - 31 mmol/L [facility] Anion Gap 14 5 - 15 mmol/L [facility] Calcium 8.0 (L) 8.5 - 10.5 mg/dL [facility] Comment: result rechecked-trb Estimated GFR 28 (L) >=60 mL/min/1.73 m?? [facility] Comment: This patient's estimated [...] Organization Address City/State/ZIP Code Phon e Number [address] Phosphorus (01/24/2022 12:18 AM EDT) P athologist Signature Phosphorus 4.5 2.5 - 4.5 [facility] mg/dL [facility] Specimen Anatomical Collection Method Collection Time Receive d Time (Source) Location / / Volume Laterality Blood 01/24/2022 12:18 01/24/2022 AM EDT 12:25 AM EDT Resulting Agency Comment Spec In Lab Gela Novak MD CHEMISTRY ORDERABLES Performing Organization Address City/State/ZIP Code Phon e Number [address] Magnesium (01/24/2022 12:18 AM EDT) athologist Signature Magnesium 0.92 0.69 - 1.07 [facility] mmol/L [facility] Specimen Anatomical Collection Method Collection Time Receive d Time (Source) Location / / Volume Laterality Blood 01/24/2022 12:18 01/24/2022 AM EDT 12:25 AM EDT Resulting Agency Comment Spec In Lab Gela Novak MD CHEMISTRY ORDERABLES Performing Organization Address City/State/ZIP Code Phon e Number [address] (ABNORMAL) Hepatic Function Panel (01/24/2022 12:18 AM EDT) [facility] Method Time Signature Total Protein 4.5 (L) 6.1 - 8.0 [facility] g/dL [facility] Albumin 2.2 (L) 3.2 - 5.2 [facility] g/dL [facility] AST 1,181 (H) 0 - 39 [facility] unit/L [facility] ALT 682 (H) 0 - 55 [facility] unit/L [facility] Alk Phos 65 40 - 130 [facility] unit/L [facility] Total 0.5 0.2 - 1.3 [facility] Bilirubin mg/dL [facility] Bili, Direct 0.2 0.0 - 0.3 [facility] mg/dL [facility] Specimen Anatomical Collection Method Collection Time Receive d Time (Source) Location / / Volume Laterality Blood 01/24/2022 12:18 01/24/2022 AM EDT 12:25 AM EDT Resulting Agency Comment Spec In Lab Cristina Hillman APRN CHEMISTRY ORDERABLES Performing Organization Address City/State/[place] [address] (ABNORMAL) Electrolytes panel (01/24/2022 12:18 AM EDT) athologist Signature Sodium 138 135 - 145 [facility]L [facility] Potassium 4.7 3.5 - 5.0 [facility] Comment: Please note: ??Patients with WBC >100,00 0 may have falsely elevated Potassium levels. ??For accurate Potassium quantif ication in these patients send serum separator tube (gold top) for subsequent determinations. ??Contact the Clinical Chemistry Laboratory if there are any qu estions. Chloride 103 98 - 107 mmol/L [facility] CO2 21 (L) 22 - 31 mmol/L [facility] Anion Gap 14 5 - 15 mmol/L [facility] Specimen Anatomical Collection Method Collection Time Receive d Time (Source) Location / / Volume Laterality Blood 01/24/2022 12:18 01/24/2022 AM EDT 12:25 AM EDT Resulting Agency Comment Spec In Lab Gemma B Pentland BALL MILL OPERATOR CHEMISTRY ORDERABLES Performing Organization Address City/[facility]/ZIP [facility] [place] [address] (ABNORMAL) CK (01/24/2022 12:18 AM EDT) P athologist Signature CK, Total 84,860 (H) 0 - 200 [facility] unit/L [facility] Specimen Anatomical Collection Method Collection Time Receive d Time (Source) Location / / Volume Laterality Blood 01/24/2022 12:18 01/24/2022 AM EDT 12:25 AM EDT Resulting Agency Comment Spec In Lab Gemma B Pentland BALL MILL OPERATOR CHEMISTRY ORDERABLES Performing Organization Address City/[facility]/[place] [address] POCT Glucose (01/24/2022 12:17 AM EDT) P athologist Signature POC Glucose 158 65 - 199 [facility] mg/dL [facility] Comment: Supplemental ranges: <140 mg/dL before meals <180 mg/dL all other times of the day Specimen Anatomical Collection Method Collection Time Receive d Time (Source) Location / / Volume Laterality Blood 01/24/2022 12:17 01/24/2022 AM EDT 12:17 AM EDT Tex Robles MD POINT OF CARE TEST ORDERABLE S Performing Organization Address City/[facility]/[place] [address] (ABNORMAL) BLOOD GAS 2 ARTERIAL (01/24/2022 12:16 AM EDT) Analysis Performed At Patho logist Time Signature pH Art 7.48 (H) 7.35 - [facility] 7.45 [facility] pCO2 Art 30 (L) 35 - 45 [facility] mmHg [facility] pO2 Art 70 (L) 85 - 104 [facility] mmHg [facility] HCO3 Art 22.0 20.0 - [facility] 26.0 [facility] mmol/[facility] BE Art -1.5 -3.0 - 3.0 [facility] mmol/L [facility] Hgb Blood Gas 15.9 13.7 - [facility] 16.5 g/dL [facility] O2HB Art 92.9 (L) 94.0 - [facility] 97.0 % [facility] COHB Art 0.6 % [facility] Comment: Nonsmokers: 0.5-1.5% COHB Smokers: Variable, but usually less than 10% Toxic: 20-30% COHB Lethal: Greater than 60% COHB METHB Art 0.4 <=1.5 % [facility] Na Whole Blood 133 (L) 135 - 145 mmol/L [facility] K Whole Blood 4.5 3.5 - 5.0 mmol/L [facility] Comment: Please note: Patients with WBC >100,000 may have falsely elevated Potassium levels. Contact the Clinical Chemistry L aboratory if there are any questions. ICa Whole Blood 1.11 (L) 1.15 - 1.33 mmol/L [facility] Comment: Note: ??Total bilirubin higher than 20 m g/dL may lead to falsely low ionized calcium. CL Whole Blood 103 98 - 107 mmol/L [facility] Gluc Whole Bld 164 65 - 199 mg/dL [facility] Comment: Diabetes: >=200 mg/dL plus symp toms. Lactate WB 2.4 (H) 0.5 - 2.2 mmol/L [facility] FIO2 Art 21 % [facility] PF Ratio Art 333 [facility] Specimen Anatomical Collection Method Collection Time Receive d Time (Source) Location / / Volume Laterality Blood 01/24/2022 12:16 01/24/2022 AM EDT 12:16 AM EDT Tex Robles MD CHEMISTRY ORDERABLES Performing Organization Address City/[facility]/[place] [address] POCT Glucose (01/23/2022 8:20 PM EDT) P athologist Signature POC Glucose 93 65 - 199 [facility] mg/dL [facility] Comment: Supplemental ranges: <140 mg/dL before meals <180 mg/dL all other times of the day Specimen Anatomical Collection Method Collection Time Receive d Time (Source) Location / / Volume Laterality Blood 01/23/2022 8:20 PM 8:20 EDT PM EDT Tex Robles MD POINT OF CARE TEST ORDERABLE S Performing Organization Address City/State/[place] [address] (ABNORMAL) Blood Gas Arterial ([facility]) (01/23/2022 6:10 PM EDT) Analysis Performed At Patho logist Time Signature pH Art 7.46 (H) 7.35 - [facility] 7.45 [facility] pCO2 Art 31 (L) 35 - 45 [facility] mmHg [facility] pO2 Art 79 (L) 85 - 104 [facility] mmHg [facility] HCO3 Art 21.5 20.0 - [facility] 26.0 [facility] mmol/L [facility] BE Art -2.4 -3.0 - 3.0 [facility] mmol/L [facility] Hgb Blood Gas 17.4 (H) 13.7 - [facility] 16.5 g/dL [facility] O2HB Art 95.5 94.0 - [facility] 97.0 % [facility] COHB Art 0.3 % [facility] Comment: Nonsmokers: ??0.5-1.5% COHB Smokers: ??Variable, but usually less th an 10% Toxic: 20 - 30% COHB Lethal: ??Greater than 60% COHB METHB Art 0.0 <=1.5 % [facility] Na Whole Blood 135 135 - 145 mmol/L [facility] K Whole Blood 5.0 3.5 - 5.0 mmol/L [facility] Comment: Please note: ??Patients with WBC >100,00 0 may have falsely elevated Potassium levels. ??Contact the Clinical Chemistry Laboratory if there are any questions. ICa Whole Blood 1.15 1.15 - 1.33 mmol/L [facility] Comment: Note: ??Total bilirubin higher than 20 m g/dL may lead to falsely low ionized calcium. CL Whole Blood 104 98 - 107 mmol/L [facility] Gluc Whole Bld 144 65 - 199 mg/dL [facility] Comment: Diabetes: >=200 mg/dL plus symp toms. Lactate WB 2.6 (H) 0.5 - 2.2 mmol/L [facility] FIO2 Art 60 % [facility] PF Ratio Art 132 [facility] Specimen Anatomical Collection Method Collection Time Receive d Time (Source) Location / / Volume Laterality Blood Arterial Draw / 01/23/2022 6:10 PM 2021 6:21 Unknown EDT PM EDT Resulting Agency Comment Spec In Lab Angelina Reynoso MD CHEMISTRY ORDERABLES Performing Organization Address City/State/[place] [address] HIV Screen, 4th Generation ([facility]CGP/APD/[facility]) (01/23/2022 6:10 PM EDT) Analysis Performed At Patho logist Time Signature HIV-1/2 Ab and Negative Negative [facility] Comment: This 4th Generation [...] Low Risk of HIV Infection MA RY [facility] Specimen Anatomical Collection Method Collection Time Receive d Time (Source) Location / / Volume Laterality Blood 01/23/2022 6:10 PM 2 6:21 EDT PM EDT Resulting Agency Comment Spec In Lab Tex Robles MD IMMUNOLOGY ORDERABLES Performing Organization Address City/[facility]/[place] [address] Hepatitis A Antibody, Total (01/23/2022 6:10 PM EDT) Analysis Performed At Patho logist Time Signature Hepatitis A Ab Negative Negative [facility]ORATORY Specimen Anatomical Collection Method Collection Time Receive d Time (Source) Location / / Volume Laterality Blood 01/23/2022 6:10 PM 2 6:21 EDT PM EDT Resulting Agency Comment Spec In Lab Tex Robles MD IMMUNOLOGY ORDERABLES Performing Organization Address City/[facility]/[place] [address] (ABNORMAL) CK (01/23/2022 6:10 PM EDT) P athologist Signature CK, Total 158,050 0 - 200 [facility] (H) unit/[facility] Specimen Anatomical Collection Method Collection Time Receive d Time (Source) Location / / Volume Laterality Blood 01/23/2022 6:10 PM 2 6:21 EDT PM EDT Resulting Agency Comment Spec In Lab Cristina Hillman APRN CHEMISTRY ORDERABLES Performing Organization Address City/[facility]/[place] [address] (ABNORMAL) Electrolytes panel (01/23/2022 6:10 PM EDT) P athologist Signature Sodium 136 135 - 145 [facility] mmol/L [facility] Potassium 5.0 3.5 - 5.0 [facility] mmol/L [facility] Comment: Please note: ??Patients with WBC >100,00 0 may have falsely elevated Potassium levels. ??For accurate Potassium quantif ication in these patients send serum separator tube (gold top) for subsequent determinations. ??Contact the Clinical Chemistry Laboratory if there are any qu estions. Chloride 103 98 - 107 mmol/L [facility] CO2 20 (L) 22 - 31 mmol/L [facility] Anion Gap 13 5 - 15 mmol/L [facility] Specimen Anatomical Collection Method Collection Time Receive d Time (Source) Location / / Volume Laterality Blood 01/23/2022 6:10 PM 2 6:21 EDT PM EDT Resulting Agency Comment Spec In Lab Cristina Hillman APRN CHEMISTRY ORDERABLES Performing Organization Address City/[facility]/[place] [address] Phosphorus (01/23/2022 6:10 PM EDT) athologist Signature Phosphorus 4.2 2.5 - 4.[address] [address] mg/dL [facility] Specimen Anatomical Collection Method Collection Time Receive d Time (Source) Location / / Volume Laterality Blood 01/23/2022 6:10 PM 2 6:21 EDT PM EDT Resulting Agency Comment Spec In Lab Angelina Reynoso MD CHEMISTRY ORDERABLES Performing Organization Address City/[facility]/[place] [address] Magnesium (01/23/2022 6:10 PM EDT) P athologist Signature Magnesium 0.94 0.69 - 1.07 [facility]/L [facility] Specimen Anatomical Collection Method Collection Time Receive d Time (Source) Location / / Volume Laterality Blood 01/23/2022 6:10 PM 2 6:21 EDT PM EDT Resulting Agency Comment Spec In Lab Angelina Reynoso MD CHEMISTRY ORDERABLES Performing Organization Address City/[facility]/[place] [address] (ABNORMAL) Creatinine (01/23/2022 6:10 PM EDT) Analysis Performed At Patho logist Time Signature Creatinine 2.88 (H) 0.80 - [facility] 1.50 mg/dL [facility] Estimated GFR 29 (L) >=60 [facility] mL/min/1.7 [facility] 3 m?? HOSPITAL LABORATORY Comment: This [...] Organization Address City/State/ZIP Code Phon e Number [facility] [place] [address] (ABNORMAL) Troponin (01/23/2022 6:10 PM EDT) P athologist Signature Troponin-T 0.14 (H) 0.00 - [facility] 0.00 ng/mL [facility] Comment: The 99th percentile for Troponin T is le ss than 0.01 ng/mL, any detectable cTnT concentration using this assay should be considered elevated. According to the third universal definit ion of myocardial infarction the following criteria with a clinical prese ntation consistent with acute myocardial ischemia meets the diagnosis for a myocardial infarction (AK). Detection of a rise and/or fall of [...] additional sample may be indicated. Reference: Third Craig Definition of Myocardial Infarction. Journal of the [place] [employer] 2012;60:1581-98 Specimen Anatomical Collection Method Collection Time Receive d Time (Source) Location / / Volume Laterality Blood 01/23/2022 6:10 PM 2 6:21 EDT PM EDT Resulting Agency Comment Spec In Lab Cristina Hillman BALL MILL OPERATOR CHEMISTRY ORDERABLES Performing Organization Address City/State/ZIP Code Phon e Number [place] [id number] XR Chest One View [...] who have questions please contact the health memory care program director that requested your imaging first. ? Narrative [...] ho have questions please contact the health memory care program director that requested your imaging first. Tex Travis HARTLEY IMG DX ORDERABLES (ABNORMAL) Calcium Ionized Whole Blood, HONORIO (01/23/2022 3:12 PM EDT) Analysis Performed At Patho logist Time Signature pH Honorio 7.42 7.32 - [facility] 7.42 [facility] ICa Whole 1.13 (L) 1.15 - [facility] Blood 1.33 [facility] mmol/L HOSPITAL LABORATORY Comment: Note: ??Total [...] Organization Address City/State/[place] [address] POCT Glucose (01/23/2022 3:03 PM EDT) athologist Signature POC Glucose 145 65 - 199 [facility] mg/dL [facility] Comment: Supplemental ranges: <140 mg/dL before meals <180 mg/dL all other times of the day Specimen Anatomical Collection Method Collection Time Receive d Time (Source) Location / / Volume Laterality Blood 01/23/2022 3:03 PM 2 3:03 EDT PM EDT Tex Robles MD POINT OF CARE TEST ORDERABLE S Performing Organization Address City/[facility]/[place] [address] XR Tibia Fibula Left [...] who have questions please contact the health memory care program director that requested your imaging first. ? Narrative [...] ho have questions please contact the health memory care program director that requested your imaging first. Electronically signed by: Jacky Mello MD, [facility] ([phone]), at 01/23/2022 2:07 PM Tex Robles IMG DX ORDERABLES XR Femur [...] who have questions please contact the health memory care program director that requested your imaging first. ? Narrative [...] ho have questions please contact the health memory care program director that requested your imaging first. Tex Travis HARTLEY IMG DX ORDERABLES MRSA PCR (01/23/2022 12:47 PM EDT) [facility] Method Time Signature MRSA Result Negative Negative [facility] MRSA Interp Negative for methicillin-resistant Staphylococcus aureus (MRSA) [facility] This test was performed using the GeneXpert?? Dx System an d the Xpert MRSA MEMORIAL Assay. The MRSA target DNA was not detec karina. The sample processing control and HOSPITAL probe check were valid. The performance of this test was determined by the [facility] Molecular Pathology Laboratory. It has been [...] Organization Address City/State/[place] [address] (ABNORMAL) BLOOD GAS 2 ARTERIAL (01/23/2022 11:56 AM EDT) Analysis Performed At Patho logist Time Signature pH Art 7.43 7.35 - [facility] 7.45 [facility] pCO2 Art 32 (L) 35 - 45 [facility] mmHg [facility] pO2 Art 86 85 - 104 [facility] LABORATORY HCO3 Art 20.8 20.0 - [facility] 26.0 [facility] mmol/[facility] BE Art -3.5 (L) -3.0 - 3.0 [facility] mmol/L [facility] Hgb Blood Gas 16.1 13.7 - [facility] 16.5 g/dL [facility] O2HB Art 95.6 94.0 - [facility] 97.0 % [facility] COHB Art 0.2 % [facility] Comment: Nonsmokers: 0.5-1.5% COHB Smokers: Variable, but usually less than 10% Toxic: 20-30% COHB Lethal: Greater than 60% COHB METHB Art 0.4 <=1.5 % [facility] Na Whole Blood 137 135 - 145 mmol/L [facility] K Whole Blood 5.5 (H) 3.5 - 5.0 mmol/L [facility] Comment: Please note: Patients with WBC >100,000 may have falsely elevated Potassium levels. Contact the Clinical Chemistry L aboratory if there are any questions. ICa Whole Blood 1.04 (L) 1.15 - 1.33 mmol/L [facility] Comment: Note: ??Total bilirubin higher than 20 m g/dL may lead to falsely low ionized calcium. CL Whole Blood 104 98 - 107 mmol/L [facility] Gluc Whole Bld 144 65 - 199 mg/dL [facility] Comment: Diabetes: >=200 mg/dL plus symp toms. Lactate WB 2.7 (H) 0.5 - 2.2 mmol/L [facility] FIO2 Art 60 % [facility] PF Ratio Art 143 [facility] Specimen Anatomical Collection Method Collection Time Receive d Time (Source) Location / / Volume Laterality Blood 01/23/2022 11:56 01/23/2022 AM EDT 11:56 AM EDT Tex Robles MD CHEMISTRY ORDERABLES Performing Organization Address City/State/ZIP Code Phon e Number [address] Hepatitis B Surface Antigen (01/23/2022 11:50 AM EDT) Analysis Performed At Path logist Time Signature HepB Surface Negative Negative [facility] LABORATORY Specimen Anatomical Collection Method Collection Time Receive d Time (Source) Location / / Volume Laterality Blood 01/23/2022 11:50 01/23/2022 AM EDT 12:00 PM EDT Resulting Agency Comment Spec In Lab Agnieszka López APRN CHEMISTRY ORDERABLES Performing Organization Address City/[facility]/ZIP Code Phon e Number [address] Hepatitis B DNA, quantitative, PCR (01/23/2022 11:50 AM EDT) Component Value Ref Test Analysis Performed At Patholo gist Range Method Time Signature Hepatitis B Result: <10 IU/mL (Target Not Detected) MANDO RAMESH quantitative, Indication for Study: HBV Infection [facility] Analysis: [employer] Elvinnity m HBV assay is an in [...] López KATERYNA CHEMISTRY ORDERABLES Performing Organization Address City/[facility]/[place] [address] Hepatitis B Core Antibody, Total (01/23/2022 11:50 AM EDT) Analysis Performed At Path logist Time Signature Hep B Core Ab Negative Negative [facility] Specimen Anatomical Collection Method Collection Time Receive d Time (Source) Location / / Volume Laterality Blood 01/23/2022 11:50 01/23/2022 AM EDT 12:00 PM EDT Resulting Agency Comment Spec In Lab Agnieszka López BALL MILL OPERATOR CHEMISTRY ORDERABLES Performing Organization Address City/[facility]/[place] [address] (ABNORMAL) Lower Respiratory Culture Tracheal Aspirate (01/23/2022 11:50 AM EDT) Component Value Ref Test Analysis Performed At [facility] Range Method Time Signature Lower Many Staphylococcus aureus MAR Y Respiratory Few mixed bacterial morphoty pes suggestive of normal upper respiratory yessy [employer] Culture ([facility] Gram Stain Many Neutrophils J[facility] No squamous epithelial cells [facility] Moderate Gram Positive Cocci [facility] Organism Staphylococcus JOSH aureus (A) [facility] Specimen Anatomical Collection Method Collection [...] Comment: Gentamicin is not a ppropriate for [place]-therapy. Staphylococcus aureus Oxacillin VITEK 2 METHOD Sensitive [...] - GENERAL ORDER JT Performing Organization Address City/[facility]/ZIP Code Phon e Number [address] (ABNORMAL) Creatinine (01/23/2022 11:30 AM EDT) Analysis Performed At Patho logist Time Signature Creatinine 3.56 (H) 0.80 - [facility] 1.50 mg/dL [facility] Estimated GFR 23 (L) >=60 [facility] mL/min/1.7 [facility] 3 ?? [facility] Comment: This patient's estimated GFR was [...] Reynoso MD CHEMISTRY ORDERABLES Performing Organization Address City/[facility]/ZIP Code Phon e Number [address] (ABNORMAL) Phosphorus (01/23/2022 11:30 AM EDT) P athologist Signature Phosphorus 6.8 (H) 2.5 - 4.[address] [facility] mg/dL [facility] Specimen Anatomical Collection Method Collection Time Receive d Time (Source) Location / / Volume Laterality Blood 01/23/2022 11:30 01/23/2022 AM EDT 11:40 AM EDT Resulting Agency Comment Spec In Lab Angelina Reynoso MD CHEMISTRY ORDERABLES Performing Organization Address City/[facility]/ZIP Code Phon e Number [address] Magnesium (01/23/2022 11:30 AM EDT) P athologist Signature Magnesium 0.86 0.69 - 1.[address] [facility] mmol/L [facility] Specimen Anatomical Collection Method Collection Time Receive d Time (Source) Location / / Volume Laterality Blood 01/23/2022 11:30 01/23/2022 AM EDT 11:40 AM EDT Resulting Agency Comment Spec In Lab Angelina Reynoso MD CHEMISTRY ORDERABLES Performing Organization Address City/[facility] [place] [address] (ABNORMAL) Electrolytes panel (01/23/2022 11:30 AM EDT) P athologist Signature Sodium 142 135 - 145 [facility] mmol/L [facility] Potassium 5.6 (H) 3.5 - 5.0 [facility] mmol/L [facility] Comment: Please note: ??Patients with WBC >100,00 0 may have falsely elevated Potassium levels. ??For accurate Potassium quantif ication in these patients send serum separator tube (gold top) for subsequent determinations. ??Contact the Clinical Chemistry Laboratory if there are any qu estions. Chloride 107 98 - 107 mmol/L [facility] CO2 19 (L) 22 - 31 mmol/L [facility] Anion Gap 16 (H) 5 - 15 mmol/L [facility] Specimen Anatomical Collection Method Collection Time Receive d Time (Source) Location / / Volume Laterality Blood 01/23/2022 11:30 01/23/2022 AM EDT 11:35 AM EDT Resulting Agency Comment Spec In Lab Cristina Hillman BALL MILL OPERATOR CHEMISTRY ORDERABLES Performing Organization Address City/State/[place] [address] (ABNORMAL) CK (01/23/2022 11:30 AM EDT) athologist Signature CK, Total 146,810 0 - 200 [facility] (H) unit/L [facility] Specimen Anatomical Collection Method Collection Time Receive d Time (Source) Location / / Volume Laterality Blood 01/23/2022 11:30 01/23/2022 AM EDT 11:35 AM EDT Resulting Agency Comment Spec In Lab [email or web address] BALL MILL OPERATOR CHEMISTRY ORDERABLES Performing Organization Address City/State/[place] [address] [facility] [address] (ABNORMAL) Troponin (01/23/2022 11:30 AM EDT) athologist Signature Troponin-T 0.24 (H) 0.00 [facility]/mL [facility] Comment: The 99th percentile for Troponin T is le ss than 0.01 ng/mL, any detectable cTnT concentration using this assay should be considered elevated. According to the third universal definit ion of myocardial infarction the following criteria with a clinical prese ntation consistent with acute myocardial ischemia meets the diagnosis for a myocardial infarction (AK). Detection of a rise and/or fall of [...] additional sample may be indicated. Reference: Third Craig Definition of Myocardial Infarction. Journal of the [place] [employer] 2012;60:1581-98 Specimen Anatomical Collection Method Collection Time Receive d Time (Source) Location / / Volume Laterality Blood 01/23/2022 11:30 01/23/2022 AM EDT 11:35 AM EDT Resulting Agency Comment Spec In Lab Cristina Hillman APRN CHEMISTRY ORDERABLES Performing Organization Address City/State/ZIP Code Phon e Number [place] [id number] POCT Glucose (01/23/2022 11:01 AM EDT) P athologist Signature POC Glucose 119 65 - 199 [facility] mg/dL [facility] Comment: Supplemental ranges: <140 mg/dL before meals <180 mg/dL all other times of the day Specimen Anatomical Collection Method Collection Time Receive d Time (Source) Location / / Volume Laterality Blood 01/23/2022 11:01 01/23/2022 AM EDT 11:01 AM EDT Tex Robles MD POINT OF CARE TEST ORDERABLE S Performing Organization Address City/[facility]/[place] [address] (ABNORMAL) BLOOD GAS 2 ARTERIAL (01/23/2022 9:18 AM EDT) Analysis Performed At Patho logist Time Signature pH Art 7.40 7.35 - [facility] 7.45 [facility] pCO2 Art 37 35 - 45 [facility] mmHg [facility] pO2 Art 61 (L) 85 - 104 [facility] mmHg [facility] HCO3 Art 22.3 20.0 - [facility] 26.0 [facility] mmol/L [facility] BE Art -2.6 -3.0 - 3.0 [facility] mmol/L [facility] Hgb Blood Gas 15.3 13.7 - [facility] 16.5 g/dL [facility] O2HB Art 91.2 (L) 94.0 - [facility] 97.0 % [facility] COHB Art 0.3 % [facility] Comment: Nonsmokers: 0.5-1.5% COHB Smokers: Variable, but usually less than 10% Toxic: 20-30% COHB Lethal: Greater than 60% COHB METHB Art 0.3 <=1.5 % [facility] Na Whole Blood 137 135 - 145 mmol/L [facility] K Whole Blood 4.5 3.5 - 5.0 mmol/L [facility] Comment: Please note: Patients with WBC >100,000 may have falsely elevated Potassium levels. Contact the Clinical Chemistry L aboratory if there are any questions. ICa Whole Blood 1.23 1.15 - 1.33 mmol/L [facility] Comment: Note: ??Total bilirubin higher than 20 m g/dL may lead to falsely low ionized calcium. CL Whole Blood 105 98 - 107 mmol/L [facility] Gluc Whole Bld 117 65 - 199 mg/dL [facility] Comment: Diabetes: >=200 mg/dL plus symp toms. Lactate WB 4.9 (Critical) 0.5 - 2.2 mmol/L [facility] Comment: Noted by supervisor instrument maintenance. FIO2 Art 62 % [facility] PF Ratio Art 98 [facility] Temp Art 36.5 Celsius [facility] Specimen Anatomical Collection Method Collection Time Receive d Time (Source) Location / / Volume Laterality Blood 01/23/2022 9:18 AM 9:18 EDT AM EDT Tex Robles MD CHEMISTRY ORDERABLES Performing Organization Address City/State/[place] [address] (ABNORMAL) BLOOD GAS 2 ARTERIAL (01/23/2022 8:37 AM EDT) Analysis Performed At Patho logist Time Signature pH Art 7.40 7.35 - [facility] 7.45 [facility] pCO2 Art 33 (L) 35 - 45 [facility] LABORATORY pO2 Art 97 85 - 104 [facility] LABORATORY HCO3 Art 20.3 20.0 - [facility] 26.0 [facility] mmol/L [facility] BE Art -4.4 (L) -3.0 - 3.0 [facility] mmol/L [facility] Hgb Blood Gas 15.3 13.7 - [facility] 16.5 g/dL [facility] O2HB Art 96.8 94.0 - [facility] 97.0 % [facility] COHB Art 0.4 % [facility] Comment: Nonsmokers: 0.5-1.5% COHB Smokers: Variable, but usually less than 10% Toxic: 20-30% COHB Lethal: Greater than 60% COHB METHB Art 0.3 <=1.5 % [facility] Na Whole Blood 135 135 - 145 mmol/L [facility] K Whole Blood 4.0 3.5 - 5.0 mmol/L [facility] Comment: Please note: Patients with WBC >100,000 may have falsely elevated Potassium levels. Contact the Clinical Chemistry L aboratory if there are any questions. ICa Whole Blood 1.11 (L) 1.15 - 1.33 mmol/L [facility] Comment: Note: ??Total bilirubin higher than 20 m g/dL may lead to falsely low ionized calcium. CL Whole Blood 105 98 - 107 mmol/L [facility] Gluc Whole Bld 141 65 - 199 mg/dL [facility] Comment: Diabetes: >=200 mg/dL plus symp toms. Lactate WB 5.0 (Critical) 0.5 - 2.2 mmol/L [facility] Comment: Noted by supervisor instrument maintenance. Specimen Anatomical Collection Method Collection Time Receive d Time (Source) Location / / Volume Laterality Blood 01/23/2022 8:37 AM 8:37 EDT AM EDT Tex Robles MD CHEMISTRY ORDERABLES Performing Organization Address City/State/[place] [address] (ABNORMAL) BLOOD GAS 2 ARTERIAL (01/23/2022 7:59 AM EDT) Analysis Performed At Patho logist Time Signature pH Art 7.34 (L) 7.35 - [facility] 7.45 [facility] pCO2 Art 34 (L) 35 - 45 [facility] LABORATORY pO2 Art 105 (H) 85 - 104 [facility] LABORATORY HCO3 Art 18.1 (L) 20.0 - [facility] 26.0 [facility] mmol/[facility]ORY BE Art -7.7 (L) -3.0 - 3.0 [facility] mmol/L [facility] Hgb Blood Gas 16.6 (H) 13.7 - [facility] 16.5 g/dL [facility] O2HB Art 97.0 94.0 - [facility] 97.0 % [facility] COHB Art 0.3 % [facility] Comment: Nonsmokers: 0.5-1.5% COHB Smokers: Variable, but usually less than 10% Toxic: 20-30% COHB Lethal: Greater than 60% COHB METHB Art 0.0 <=1.5 % [facility] Na Whole Blood 140 135 - 145 mmol/L [facility] K Whole Blood 4.5 3.5 - 5.0 mmol/L [facility] Comment: Please note: Patients with WBC >100,000 may have falsely elevated Potassium levels. Contact the Clinical Chemistry L aboratory if there are any questions. ICa Whole Blood 0.91 (Critical) 1.15 - 1.33 mmol/L [facility] Comment: Noted by supervisor instrument maintenance. Note: ??Total bilirubin higher than 20 m g/dL may lead to falsely low ionized calcium. CL Whole Blood 103 98 - 107 mmol/L [facility] Gluc Whole Bld 179 65 - 199 mg/dL [facility] Comment: Diabetes: >=200 mg/dL plus symp toms. Lactate WB 4.4 (Critical) 0.5 - 2.2 mmol/L [facility] Comment: Noted by supervisor instrument maintenance. Specimen Anatomical Collection Method Collection Time Receive d Time (Source) Location / / Volume Laterality Blood 01/23/2022 7:59 AM 7:59 EDT AM EDT Tex Robles MD CHEMISTRY ORDERABLES Performing Organization Address City/State/[place] [address] (ABNORMAL) POCT Glucose (01/23/2022 7:28 AM EDT) P athologist Signature POC Glucose 215 (H) 65 - 199 [facility] mg/dL [facility] Comment: Supplemental ranges: <140 mg/dL before meals <180 mg/dL all other times of the day Specimen Anatomical Collection Method Collection Time Receive d Time (Source) Location / / Volume Laterality Blood 01/23/2022 7:28 AM 7:28 EDT AM EDT Tex Robles MD POINT OF CARE TEST ORDERABLE S Performing Organization Address City/State/[place] [address] (ABNORMAL) Blood Gas Arterial ([facility]) (01/23/2022 7:21 AM EDT) Analysis Performed At Patho logist Time Signature pH Art 7.37 7.35 - [facility] 7.45 [facility] pCO2 Art 28 (L) 35 - 45 [facility] LABORATORY pO2 Art 96 85 - 104 [facility] LABORATORY HCO3 Art 15.7 (L) 20.0 - [facility] 26.0 [facility] mmol/L [facility] BE Art -9.6 (L) -3.0 - 3.0 [facility] mmol/L [facility] Hgb Blood Gas 16.4 13.7 - [facility] 16.5 g/dL [facility] O2HB Art 96.6 94.0 - [facility] 97.0 % [facility] COHB Art 0.3 % [facility] Comment: Nonsmokers: ??0.5-1.5% COHB Smokers: ??Variable, but usually less th an 10% Toxic: 20 - 30% COHB Lethal: ??Greater than 60% COHB METHB Art 0.2 <=1.5 % [facility] Na Whole Blood 137 135 - 145 mmol/L [facility] K Whole Blood 4.4 3.5 - 5.0 mmol/L [facility] Comment: Please note: ??Patients with WBC >100,00 0 may have falsely elevated Potassium levels. ??Contact the Clinical Chemistry Laboratory if there are any questions. ICa Whole Blood 0.90 (Critical) 1.15 - 1.33 mmol/L [facility] Comment: Called by: sharmin, Read back by: willie webb, Date/Time:01/23/22 07:38. Note: ??Total bilirubin higher than 20 m g/dL may lead to falsely low ionized calcium. CL Whole Blood 105 98 - 107 mmol/L [facility] Gluc Whole Bld 203 (H) 65 - 199 mg/dL [facility] Comment: Diabetes: >=200 mg/dL plus symp toms. Lactate WB 5.5 (Critical) 0.5 - 2.2 mmol/L [facility] Comment: Called by: sharmin, Read back by: pramod alfaro, Date/Time:01/23/22 07:38. FIO2 Art 30 % [facility] PF Ratio Art 320 [facility] Specimen Anatomical Collection Method Collection Time Receive d Time (Source) Location / / Volume Laterality Blood Arterial Draw / 01/23/2022 7:21 AM 2021 7:28 Unknown EDT AM EDT Resulting Agency Comment Spec In Lab Cristina Hillman APRN CHEMISTRY ORDERABLES Performing Organization Address City/State/[place] [address] (ABNORMAL) Phosphorus (01/23/2022 7:20 AM EDT) P athologist Signature Phosphorus 6.1 (H) 2.5 - 4.5 [facility] mg/dL [facility] Specimen Anatomical Collection Method Collection Time Receive d Time (Source) Location / / Volume Laterality Blood 01/23/2022 7:20 AM 7:27 EDT AM EDT Resulting Agency Comment Spec In Lab Angelina Reynoso MD CHEMISTRY ORDERABLES Performing Organization Address City/State/[place] [address] Magnesium (01/23/2022 7:20 AM EDT) P athologist Signature Magnesium 0.81 0.69 - 1.07 [facility] Specimen Anatomical Collection Method Collection Time Receive d Time (Source) Location / / Volume Laterality Blood 01/23/2022 7:20 AM 2 7:27 EDT AM EDT Resulting Agency Comment Spec In Lab Angelina Reynoso MD CHEMISTRY ORDERABLES Performing Organization Address City/[facility]/ZIP Code Phon e Number [address] (ABNORMAL) Creatinine (01/23/2022 7:20 AM EDT) Analysis Performed At Patho logist Time Signature Creatinine 3.84 (H) 0.80 - [facility] 1.50 mg/dL [facility] Estimated GFR 21 (L) >=60 [facility] mL/min/1.7 [facility] 3 ?? [facility] Comment: This patient's estimated GFR was [...] Reynoso MD CHEMISTRY ORDERABLES Performing Organization Address City/[facility]/ZIP Code Phon e Number [address] (ABNORMAL) Electrolytes panel (01/23/2022 7:20 AM EDT) athologist Signature Sodium 141 135 - [address] [facility]L [facility] Potassium 4.6 3.5 - 5.0 [facility] mmol/L [facility] Comment: result rechecked-brian Please note: ??Patients with WBC >100,00 0 may have falsely elevated Potassium levels. ??For accurate Potassium quantif ication in these patients send serum separator tube (gold top) for subsequent determinations. ??Contact the Clinical Chemistry Laboratory if there are any qu estions. Chloride 106 98 - 107 mmol/L [facility] CO2 14 (L) 22 - 31 mmol/L [facility] Anion Gap 21 (H) 5 - 15 mmol/L [facility] Specimen Anatomical Collection Method Collection Time Receive d Time (Source) Location / / Volume Laterality Blood 01/23/2022 7:20 AM 7:27 EDT AM EDT Resulting Agency Comment Spec In Lab Angelina Reynoso MD CHEMISTRY ORDERABLES Performing Organization Address City/State/[place] [address] XR Hand Min 3 [...] who have questions please contact the health memory care program director that requested your imaging first. ? Electronically signed by: Jacky Mello MD, [facility] ([phone]), at 01/23/2022 11:07 AM Procedure Note Jacky [...] ho have questions please contact the health memory care program director that requested your imaging first. Electronically signed by: Jacky Mello MD, [facility] ([phone]), at 01/23/2022 11:07 AM Tex Travis HARTLEY [...] who have questions please contact the health memory care program director that requested your imaging first. ? Electronically signed by: Rex Addison MD, [facility] ([phone]), at 01/23/2022 6:56 AM Narrative 01/23/2022 6:56 [...] iaphragm, the tip is not within the [id number]. Upper retrocardiac opacity corresponding to partial collapse [...] iaphragm, the tip is not within the [id number]. Upper retrocardiac opacity corresponding to partial collapse [...] ho have questions please contact the health memory care program director that requested your imaging first. Electronically signed by: Rex Addison MD, [facility] ([phone]), at 01/23/2022 6:56 AM Tex Travis HARTLEY IMG DX ORDERABLES [...] who have questions please contact the health memory care program director that requested your imaging first. ? Narrative [...] ho have questions please contact the health memory care program director that requested your imaging first. Tex Robles [...] yes Patient location at time of insertion: [address] Procedure Comments: Prior to dilation wire was visualized vi a ultrasound entering large, collapsible vessel in both transv erse and longitudinal planes. All ports had positive blood ret urn and were able to be flushed without difficulty. Cristina Hillman APRN Cristina Hillman APRN PROCEDURE/MINOR SURGICAL ORD ERABLES (ABNORMAL) Electrolytes panel (01/23/2022 6:00 AM EDT) athologist Signature Sodium 140 135 - 145 [facility] mmol/L [facility] Potassium 5.9 (H) 3.5 - 5.0 [facility] mmol/L [facility] Comment: Please note: ??Patients with WBC >100,00 0 may have falsely elevated Potassium levels. ??For accurate Potassium quantif ication in these patients send serum separator tube (gold top) for subsequent determinations. ??Contact the Clinical Chemistry Laboratory if there are any qu estions. Chloride 102 98 - 107 mmol/L [facility] CO2 15 (L) 22 - 31 mmol/L [facility] Anion Gap 23 (H) 5 - 15 mmol/L [facility] Specimen Anatomical Collection Method Collection Time Receive d Time (Source) Location / / Volume Laterality Blood 01/23/2022 6:00 AM 2 6:08 EDT AM EDT Resulting Agency Comment Spec In Lab Cristina Hillman APRN CHEMISTRY ORDERABLES Performing Organization Address City/State/[place] [address] (ABNORMAL) CK (01/23/2022 6:00 AM EDT) athologist Signature CK, Total 158,930 0 - 200 [facility] (H) unit/L [facility] Specimen Anatomical Collection Method Collection Time Receive d Time (Source) Location / / Volume Laterality Blood 01/23/2022 6:00 AM 2 6:08 EDT AM EDT Resulting Agency Comment Spec In Lab Gemma B Pentland BALL MILL OPERATOR CHEMISTRY ORDERABLES Performing Organization Address City/State/[place] [address] (ABNORMAL) Troponin (01/23/2022 6:00 AM EDT) athologist Signature Troponin-T 0.35 (H) 0.00 - [facility] 0.00 ng/mL [facility] Comment: The 99th percentile for Troponin T is le ss than 0.01 ng/mL, any detectable cTnT concentration using this assay should be considered elevated. According to the third universal definit ion of myocardial infarction the following criteria with a clinical prese ntation consistent with acute myocardial ischemia meets the diagnosis for a myocardial infarction (AK). Detection of a rise and/or fall of [...] additional sample may be indicated. Reference: Third Craig Definition of Myocardial Infarction. Journal of the [place] [employer] 2012;60:1581-98 Specimen Anatomical Collection Method Collection Time Receive d Time (Source) Location / / Volume Laterality Blood 01/23/2022 6:00 AM 2 6:08 EDT AM EDT Resulting Agency Comment Spec In Lab Gemma B Pentland BALL MILL OPERATOR CHEMISTRY ORDERABLES Performing Organization Address City/State/[place] [address] Blood culture (01/23/2022 6:00 AM EDT) Patholo gist Method Time Signature Blood Culture No growth [facility] at 5 days. [facility] Specimen Anatomical Collection Method Collection Time Receive d Time (Source) Location / / Volume Laterality Blood 01/23/2022 6:00 AM 6:18 EDT AM EDT Comment: unknown Resulting Agency Comment Spec In Lab Gemma B Pentland BALL MILL OPERATOR MICROBIOLOGY - BLOOD ORDERAB LES Performing Organization Address City/State/ZIP Code Phon e Number [address] (ABNORMAL) POCT Glucose (01/23/2022 4:58 AM EDT) athologist Signature POC Glucose 205 (H) 65 - [address] [facility] mg/dL [facility] Comment: Supplemental ranges: <140 mg/dL before meals <180 mg/dL all other times of the day Specimen Anatomical Collection Method Collection Time Receive d Time (Source) Location / / Volume Laterality Blood 01/23/2022 4:58 AM 2 4:58 EDT AM EDT Tex Robles MD POINT OF CARE TEST ORDERABLE S Performing Organization Address City/[facility]/[place] [address] Hepatitis B Surface Antibody (01/23/2022 4:49 AM EDT) P athologist Signature HepB Surface 418.0 IU/L [facility] Ab Quant [facility] Comment: HepB Surface Ab Quant: Unvaccinated: < 8.5 IU/L Vaccinated: > 11.5 IU/L HepB Surface Ab Positive [facility] Comment: Patient is considered to be immune to HB V infection. Expected Results: Vaccinated: Positive Unvaccinated: Negative Specimen Anatomical Collection Method Collection Time Receive d Time (Source) Location / / Volume Laterality Blood 01/23/2022 4:49 AM 2 4:56 EDT AM EDT Resulting Agency Comment Spec In Lab Gemma B Pentland BALL MILL OPERATOR IMMUNOLOGY ORDERABLES Performing Organization Address City/State/ZIP [place] [address] Hepatitis C Antibody (01/23/2022 4:49 AM EDT) Analysis Performed At Patho logist Time Signature Hepatitis C Ab Negative Negative [facility]OR[facility] Specimen Anatomical Collection Method Collection Time Receive d Time (Source) Location / / Volume Laterality Blood 01/23/2022 4:49 AM 2 4:56 EDT AM EDT Resulting Agency Comment Spec In Lab [facility] BALL MILL OPERATOR IMMUNOLOGY ORDERABLES Performing Organization Address City/[facility]/[place] [address] (ABNORMAL) Potassium (01/23/2022 4:49 AM EDT) P athologist Signature Potassium 6.6 3.5 - 5.0 [facility] (Critical) mmol/L [facility] Comment: Called by: kvng, [...] Agency Comment Spec In Lab Cristina B [facility] BALL MILL OPERATOR CHEMISTRY ORDERABLES Performing Organization Address City/[facility]/ZIP Code Phon e Number [place] [id number] (ABNORMAL) Hemogram (01/23/2022 4:49 AM EDT) Patholo gist Method Time Signature WBC 12.1 (H) 4.0 - 9.5 [facility] x10(3)/[facility] LABORATORY RBC 5.49 4.58 [facility]54 [facility] x10(6)/[facility] LABORATORY Hemoglobin 17.6 (H) 13.7 - JOSH GILMORE 16.5 g/dL [facility] Hematocrit 50.3 (H) 40.5 - [facility] 48.5 % [facility] MCV 91.6 82.9 - [facility] MANDO 93.1 [facility] LABORATORY MCH 32.1 27.5 - [facility] GILMORE 32.1 pg [facility]ORY MCHC 35.0 32.0 - [facility] MANDO 35.7 g/dL [facility] Platelets 184 145 - 357 [facility] VELASQUEZMANDO x10(3)/[facility] LABORATORY RDWSD 41.9 36.0 - [facility] MANDO 45.0 [facility] RDWCV 12.3 11.4 - J[facility] MANDO 13.8 % [facility] LABORATORY MPV 9.7 7.6 - 12.9 [facility] LABORATORY nRBC % Auto 0.2 % [facility] nRBC Abs Auto 0.030 (H) 0.000 - [facility] GILMORE 0.000 [facility] x10(3)/[facility] LABORATORY Specimen Anatomical Collection Method Collection Time Receive d Time (Source) Location / / Volume Laterality Blood 01/23/2022 4:49 AM 4:56 EDT AM EDT Resulting Agency Comment Spec In Lab Cristina Hillman APRN HEMATOLOGY ORDERABLES Performing Organization Address City/State/[place] [address] Upper Extremity w [...] who have questions please contact the health memory care program director that requested your imaging first. ? Electronically signed by: Rex Addison MD, [facility] ([phone]), at 01/23/2022 4:58 AM Narrative 01/23/2022 4:58 [...] ho have questions please contact the health memory care program director that requested your imaging first. Electronically signed by: Rex Addison MD, [facility] ([phone]), at 01/23/2022 4:58 AM Cristina Hillman APRN [...] who have questions please contact the health memory care program director that requested your imaging first. ? Electronically signed by: Rex Addison MD, [facility] ([phone]), at 01/23/2022 4:39 AM Narrative 01/23/2022 4:39 AM EDT EXAMINATION: CT CHEST WO CONTRAST (GENERIC) CLINICAL HISTORY: Aspiration Hypoxia [id number] to XR imaging. Presenting with cardiac arrest s/p ROSC, unclear etiology. TECHNIQUE: Noncontrast CT chest. Absence of intravenous contrast renders suboptimal assessment of potential paren chymal and mediastinal masses as well as hilar lymphadenopathy, and blood vessels and cardiovascular structures. COMPARISON: None Procedure Note Rex Addison MD - 01/23/2022 EXAMINATION: CT CHEST WO CONTRAST (GENER IC) CLINICAL HISTORY: Aspiration Hypoxia [id number] to XR imaging. Presenting with cardiac arrest [...] ho have questions please contact the health memory care program director that requested your imaging first. [facility] [place] ORDERABLES CT Lower Extremity wo Contrast [...] who have questions please contact the health memory care program director that requested your imaging first. ? Electronically signed by: Melita Mills MD, [facility] ([phone]), at 01/24/2022 1:45 PM Narrative 01/24/2022 1:45 [...] ho have questions please contact the health memory care program director that requested your imaging first. Electronically signed by: Melita Mills MD, [facility] ([phone]), at 01/24/2022 1:45 PM Gemma B Pentland BALL MILL OPERATOR IMG CT ORDERABLES CT Head wo Contrast [...] who have questions please contact the health memory care program director that requested your imaging first. ? Narrative [...] ho have questions please contact the health memory care program director that requested your imaging first. Electronically signed by: Rex Addison MD, [facility] ([phone]), at 01/23/2022 4:27 AM Cristina Hillman APRN [...] p lanned procedure. ?? Hand Hygiene: The senior regulatory affairs specialist did perform h and hygiene prior [...] who have questions please contact the health memory care program director that requested your imaging first. ? Electronically signed by: Jacky Mello MD, [facility] ([phone]), at 01/23/2022 8:39 AM Narrative 01/23/2022 8:39 [...] ho have questions please contact the health memory care program director that requested your imaging first. Electronically signed by: Jacky Mello MD, [facility] ([phone]), at 01/23/2022 8:39 AM Gemma B Pentland BALL MILL OPERATOR IMG DX ORDERABLES XR Chest One View [...] who have questions please contact the health memory care program director that requested your imaging first. ? Narrative [...] body and tip not included in the [id number]-mr-dki w. No focal consolidation.No sizable pleura l [...] body and tip not included in the omfbt-sv-ugl w. No focal consolidation.No sizable pleura l [...] ho have questions please contact the health memory care program director that requested your imaging first. Jaquelinma B Pentland BALL MILL OPERATOR IMG DX ORDERABLES APTT (01/23/2022 1:55 AM EDT) P athologist Signature PTT 25 25 - 37 sec [facility] Comment: The PTT is [...] Robles MD HEMATOLOGY ORDERABLES Performing Organization Address City/[facility]/ZIP Code Phon e Number [place] [phone] (ABNORMAL) Prothrombin Time (01/23/2022 1:55 AM EDT) P athologist Signature PT 14.4 (H) 9.4 - 12.5 [facility] LABORATORY INR 1.3 [facility] Comment: An INR <2.0 [...] Robles MD HEMATOLOGY ORDERABLES Performing Organization Address [facility]/[place] [address] Fibrinogen (01/23/2022 1:55 AM EDT) P athologist Signature Fibrinogen 349 200 - 393 [facility] mg/dL [facility] Comment: A fibrinogen level >100 mg/dL is adequat e for hemostasis in most patients without underlying bleeding disorders. Specimen Anatomical Collection Method Collection Time Receive d Time (Source) Location / / Volume Laterality Blood 01/23/2022 1:55 AM 2 1:59 EDT AM EDT Resulting Agency Comment Spec In Lab Tex Robles MD HEMATOLOGY ORDERABLES Performing Organization Address City/[facility]/[place] [address] (ABNORMAL) Rapid Drug Screen w/o Confirmation, Urine (01/23/2022 1:45 AM EDT) [facility] Method Time Signature U Barbiturates Presumptive None JOSH Screen Pos (A) Detected [facility] Comment: The barbiturate screen detects barbitura [...] Benzodiazepines Screen Presumptive Pos (A) None Detected [facility] Comment: The benzodiazepines screen [...] U Cocaine Screen None Detected None Detected [facility] Comment: The cocaine metabolites [...] U Methadone Metabolites None Detected None Detected [facility] LABORATORY Comment: The methadone metabolite screen [...] other synthetic opioids are not detected by [facility] opiate screen. A ? Presumptive Positive? result indicates that the screening result was positive but has not yet been confirmed by a highly-specific method. As with any screen, occasional false positive re sults from cross-reacting substances may occur. Not for Medico-Legal Purposes. U Cannabinoid Screen None Detected None Detected Ren WEBB [facility] Comment: The marijuana metabolites screen detects the THC metabolite (93-hio-8-carboxy-delta 9-THC) at concen trations >20 ng/mL. A ? Presumptive Positive? result indicates that the screening result was positive but has not yet been confirmed by a highly-specific method. As with any screen, occasional false positive re sults from cross-reacting substances may occur. Not for Medico-Legal Purposes. U Oxycodone Screen Presumptive Pos (A) None Detected [facility] Comment: The oxycodone screen detects oxycodone a nd oxymorphone at concentrations >100 ng/mL. A ? Presumptive Positive? result indicates that the screening result was positive but has not yet been confirmed by a highly-specific method. As with any screen, occasional false positive re sults from cross-reacting substances may occur. Not for Medico-Legal Purposes. U Buprenorphine Screen None Detected None Detected [facility] Comment: The buprenorphine screen detects bupreno rphine at concentrations >5 ng/mL. A ? Presumptive Positive? result indicates that the screening result was positive but has not yet been confirmed by a highly-specific method. As with any screen, occasional false positive re sults from cross-reacting substances may occur. Not for Medico-Legal Purposes. U Fentanyl Screen Presumptive Pos (A) None Detected [facility] Comment: The fentanyl screen detects fentanyl at concentrations >2 ng/mL. A ? Presumptive Positive? result indicates that the screening result was positive but has not yet been confirmed by a highly-specific method. As with any screen, occasional false positive re sults from cross-reacting substances may occur. Not for Medico-Legal Purposes. U Tricyclics Screen None Detected None Detected MA JAHAIRA [facility] Comment: The tricyclics screen detects [...] U Ethanol Screen None Detected None Detected [facility] Comment: This urine ethanol assay detect s ethanol at concentrations >/= 100 mg/L. U Amphetamines Screen None Detected None Detected [facility] Comment: The amphetamine screen [...] Screen None Detected None Detected Ren WEBB [facility] Comment: No adulteration or dilution of [...] Organization Address City/State/[place] [address] Rapid Drug Screen, Urine (MEGHNA Request) (01/23/2022 1:45 AM EDT) [facility] Method Time Signature MEGHNA Conf No [facility] LABORATORY MEGHNA Requested See Comment [facility] Comment: Refer to Rapid Drug Screen w/o Confirmation, Urine for results. Specimen Anatomical Collection Method Collection Time Receive d Time (Source) Location / / Volume Laterality Urine 01/23/2022 1:45 AM 2 1:52 EDT AM EDT Resulting Agency Comment Spec In Lab Cristina Hillman BALL MILL OPERATOR URINE ORDERABLES Performing Organization Address City/State/[place] [address] (ABNORMAL) _Urinalysis with microscopic (01/23/2022 1:30 AM EDT) [facility] Method Time Signature Glucose UA Negative Negative [facility] mg/dL [facility] Protein UA >=300 (A) Negative [facility] Bilirubin UA Moderate (A) Negative [facility] mg/dL [facility] Comment: Clinical correlation required for positi ve Urine Bilirubin results as false positive may occur with some drugs and d rug related products. If a false positive is suspected a serum total bili villaseñor should be considered if clinically indicated. Urobilinogen UA Normal Normal mg/dL [facility] pH UA 6.5 5.0 - 8.0 [facility] Blood UA Large (A) Negative mg/dL [facility] Ketones UA Trace (A) Negative mg/dL [facility] Nitrite UA Positive (A) Negative [facility] Leukocytes UA Negative Negative [facility] LABORATORY Appearance UA Cloudy (A) Clear [facility] Spec Harmony UA >=1.030 (A) 1.006 - 1.030 [facility] Color UA Brown (A) [facility] RBC UA 2 0 - 3 /HPF [facility] Comment: Interpret with caution, manual microscopic results are from an unspun specimen. WBC UA <1 0 - 3 /HPF [facility] Comment: Interpret with caution, manual microscopic results are from an unspun specimen. Bacteria UA Many (A) None /HPF [facility] Comment: Interpret with caution, manual microscopic results are from an unspun specimen. Squam Epith UA 1 <=4 /HPF [facility] Comment: Interpret with caution, manual microscopic results are from an unspun specimen. Hyaline Cast UA <1 0 - 2 /LPF [facility] Comment: Interpret with caution, manual microscopic results are from an unspun specimen. Amorph Mila UA Many (A) None /HPF [facility] Comment: Interpret with caution, manual microscopic results are from an unspun specimen. Specimen Anatomical Collection Method Collection Time Receive d Time (Source) Location / / Volume Laterality Urine 01/23/2022 1:30 AM 2 1:41 EDT AM EDT Resulting Agency Comment Spec In Lab Jaquelinma B Pentland BALL MILL OPERATOR URINE ORDERABLES Performing Organization Address City/[facility]/[place] [address] Blood culture (01/23/2022 1:26 AM EDT) [facility] [employer] Method Time Signature Blood Culture No growth [facility] at 5 days. [facility] Specimen Anatomical Collection Method Collection Time Receive d Time (Source) Location / / Volume Laterality Blood 01/23/2022 1:26 AM 2 1:38 EDT AM EDT Comment: r wrist Resulting Agency Comment Spec In Lab Gemma B Pentland BALL MILL OPERATOR MICROBIOLOGY - BLOOD ORDERAB LES Performing Organization Address City/[facility]/[place] [address] (ABNORMAL) BLOOD GAS 2 ARTERIAL (01/23/2022 1:25 AM EDT) [employer] Method Time Signature pH Art 7.32 (L) 7.35 - [facility] 7.45 [facility] pCO2 Art 33 (L) 35 - 45 [facility] mmHg [facility] pO2 Art 68 (L) 85 - 104 [facility] mmHg [facility] HCO3 Art 16.8 (L) 20.0 - [facility] 26.0 [facility] mmol/L [facility] LABORATORY BE Art -9.3 (L) -3.0 - 3.0 [facility] mmol/L [facility] Hgb Blood Gas 20.4 13.7 - [facility] (Critical) 16.5 g/dL [facility] Comment: Noted by supervisor instrument maintenance. O2HB Art 92.4 (L) 94.0 - 97.0 % [facility] COHB Art 0.2 % [facility] Comment: Nonsmokers: 0.5-1.5% COHB Smokers: Variable, but usually less than 10% Toxic: 20-30% COHB Lethal: Greater than 60% COHB METHB Art 0.7 <=1.5 % [facility] Na Whole Blood 141 135 - 145 mmol/L [facility] K Whole Blood 5.3 (H) 3.5 - 5.0 mmol/L [facility] Comment: Please note: Patients with WBC >100,000 may have falsely elevated Potassium levels. Contact the Clinical Chemistry L aboratory if there are any questions. ICa Whole Blood 0.97 (L) 1.15 - 1.33 mmol/L [facility] Comment: Note: ??Total bilirubin higher than 20 m g/dL may lead to falsely low ionized calcium. CL Whole Blood 106 98 - 107 mmol/L [facility] Gluc Whole Bld 158 65 - 199 mg/dL [facility] Comment: Diabetes: >=200 mg/dL plus symp toms. Lactate WB 4.1 (Critical) 0.5 - 2.2 mmol/L [facility] LAB[facility] Comment: Noted by supervisor instrument maintenance. FIO2 Art 75 % [facility] PF Ratio Art 91 [facility] LABORATORY Specimen Anatomical Collection Method Collection Time Receive d Time (Source) Location / / Volume Laterality Blood 01/23/2022 1:25 AM 2 1:25 EDT AM EDT Tex Robles MD CHEMISTRY ORDERABLES Performing Organization Address City/State/[place] [address] EKG 12 Lead (01/23/2022 12:46 AM EDT) Component Value Ref Range Test Analysis Performed Pathologis t Method Time At Signature Ventricular rate 147 BPM MUSE SYSTEM Atrial Rate 147 BPM MUSE SYSTEM P-R Interval 130 ms MUSE SYSTEM QRS Duration 84 ms MUSE SYSTEM Q-T Interval 268 ms MUSE SYSTEM QTC Calculated 419 ms MUSE SYSTEM (Bezet) Calculated P Dexter 60 degrees MUSE SYSTEM Calculated R Dexter 42 degrees MUSE SYSTEM Calculated T Dexter 28 degrees MUSE SYSTEM INTERPRETATION Sinus tachycardia MUSE SY STEM Nonspecific ST abnormality Abnormal ECG When compared with ECG of 26-APR-2021 21:48, Vent. rate has increased BY ??90 BPM Nonspecific T wave abnormality has repla naveed inverted T waves in Inferior leads Confirmed by MD SERGIO, YAIR ([id number]) on 01/23/2022 12:39:5 7 PM Specimen Anatomical Collection Method Collection Time Receive d Time (Source) Location / / Volume Laterality 01/23/2022 12:46 01/23/2022 AM EDT 12:39 PM EDT LaserLeapma B Alycialand BALL MILL OPERATOR ECG ORDERABLES Performing Organization Address City/State/ZIP Code Phon e Number MUSE SYSTEM T4, free (01/23/2022 12:45 AM EDT) athologist Signature Free T4 1.19 0.93 - 1.70 [facility] ng/dL [facility] Comment: Reference Interval (ng/dL): Females: ??First Trimester: 0.97-1.68 ??Second Trimester: 0.77-1.51 ??Third Trimester: 0.77-1.49 Specimen Anatomical Collection Method Collection Time Receive d Time (Source) Location / / Volume Laterality Blood 01/23/2022 12:45 01/23/2022 1:13 AM EDT AM EDT Resulting Agency Comment Spec In Lab Jaquelinma B Alycialand BALL MILL OPERATOR CHEMISTRY ORDERABLES Performing Organization Address City/State/[place] [address] Triglyceride (01/23/2022 12:45 AM EDT) athologist Signature Triglycerides 273 mg/dL [facility] Comment: Average Risk/Lower Risk: <150 mg/dL Borderline High Risk: 150-199 mg/dL High Risk: 200-499 mg/dL Very High Risk: >ae=915 mg/dL Specimen Anatomical Collection Method Collection Time Receive d Time (Source) Location / / Volume Laterality Blood Venous Draw / 01/23/2022 12:45 01/23/2022 1:13 Unknown AM EDT AM EDT Resulting Agency Comment Spec In Lab Cristina Hillman APRN CHEMISTRY ORDERABLES Performing Organization Address City/[facility]/ZIP Code Phon e Number [address] Type and Screen Validity (01/23/2022 12:45 AM EDT) [facility] Method Time Signature T&S only valid [facility] LABORATORY Comment: This Type and Screen result is only valid at the [facility] Specimen Anatomical Collection Method Collection Time Receive d Time (Source) Location / / Volume Laterality Blood 01/23/2022 12:45 01/23/2022 AM EDT 12:51 AM EDT Resulting Agency Comment Spec In Lab [facility] BALL MILL OPERATOR BLOOD BANK ORDERABLES Performing Organization Address City/[facility]/[place] [address] Scan, Peripheral Blood (01/23/2022 12:45 AM EDT) athologist Signature Plat Estimate Normal [facility] RBC Morphology Normal [facility] Specimen Anatomical Collection Method Collection Time Receive d Time (Source) Location / / Volume Laterality Blood 01/23/2022 12:45 01/23/2022 1:08 AM EDT AM EDT Resulting Agency Comment Spec In Lab Jaquelinnh [facility] HEMAT[facility] ORDERABLES Performing Organization Address City/[facility]/[place] [address] (ABNORMAL) Differential, Automated (01/23/2022 12:45 AM EDT) [facility] Method Time Signature Neutrophils % 71.4 % [facility] Neutr Abs (ANC) 16.11 (H) 1.70 - [facility] 6.10 [facility] x10(3)/[facility] LABORATORY Lymphocytes % 17.4 % [facility] Lymphocytes Abs 3.9 (H) 0.9 - 3.2 [facility] x10(3)/[facility] LABORATORY Monocytes % 9.3 % [facility] Monocyte Abs 2.1 (H) 0.3 - 0.9 [facility] x10(3)/[facility] LABORATORY Eosinophils % 0.0 % [facility] Eosinophils Abs 0.0 0.0 - 0.4 [facility] x10(3)/[facility] LABORATORY Basophils % 0.5 % [facility] Basophils Abs 0.1 0.0 - 0.1 [facility] x10(3)/[facility] LABORATORY Immature Gran % 1.40 % [facility] Comment: Immature granulocytes(IG's)percentage an d absolute count will include metamyelocytes, myelocytes, and promyelo cytes. Blood smears from CBCs yielding IG's will be scanned manually for concor dance. If this scan disagrees with the automated IG or if promyelocytes are not ed, a manual differential will be performed. Gemini Gran Abs 0.31 (H) 0.00 - 0.04 x10(3)/[facility] LABORATORY Specimen Anatomical Collection Method Collection Time Receive d Time (Source) Location / / Volume Laterality Blood 01/23/2022 12:45 01/23/2022 1:08 AM EDT AM EDT Resulting Agency Comment Spec In Lab Cristina Hillman APRN HEMATOLOGY ORDERABLES Performing Organization Address City/State/[place] [address] (ABNORMAL) Hemogram (01/23/2022 12:45 AM EDT) P athologist Signature WBC 22.6 (H) 4.0 - 9.5 [facility] x10(3)/[facility] LABORATORY RBC 6.64 (H) 4.58 [facility] 5.54 [facility] x10(6)/[facility] LABORATORY Hemoglobin 21.5 13.7 - [facility] (Critical) 16.5 g/dL [facility] Comment: Called by: HERMAN, Read back by: Halley Hoyt, Date/Time:01/23/22 01:33. Corrected from 21.5 g/dL [CRIT] on 01/23 1:33:32 EDT by Shelli Sauceda Hematocrit 63.2 (H) 40.5 - 48.5 % [facility]ORATORY MCV 95.2 (H) 82.9 - 93.1 [facility] LABORATORY MCH 32.4 (H) 27.5 - 32.1 pg [facility] LABORATORY MCHC 34.0 32.0 - 35.7 g/dL [facility] LABORATORY Platelets 269 145 - 357 x10(3)/[facility] LABORATORY RDWSD 43.9 36.0 - 45.0 [facility] LABORATORY RDWCV 12.3 11.4 - 13.8 % [facility] LABORATORY MPV 9.7 7.6 - 12.9 [facility] LABORATORY nRBC % Auto 0.3 % [facility] LABORATORY nRBC Abs Auto 0.060 (H) 0.000 - 0.000 x10(3)/[facility] LABORATORY Specimen Anatomical Collection Method Collection Time Receive d Time (Source) Location / / Volume Laterality Blood 01/23/2022 12:45 01/23/2022 1:08 AM EDT AM EDT Resulting Agency Comment Spec In Lab Gemma B Alycialand BALL MILL OPERATOR HEMATOLOGY ORDERABLES Performing Organization Address City/State/[place] [address] ABORH Recheck Status (01/23/2022 12:45 AM EDT) [facility] gist Method Time Signature ABORH Recheck Order Placed [facility] LABORATORY ABORH Type Complete [facility] LABORATORY Specimen Anatomical Collection Method Collection Time Receive d Time (Source) Location / / Volume Laterality Blood 01/23/2022 12:45 01/23/2022 AM EDT 12:51 AM EDT Resulting Agency Comment Spec In Lab Gemma B Pentland BALL MILL OPERATOR BLOOD BANK ORDERABLES Performing Organization Address City/State/[place] [address] Antibody screen (01/23/2022 12:45 AM EDT) Patholo gist Method Time Signature Ab Screen Negative [facility] LABORATORY Expires at 01/26/2022 [facility] 2353 on: [facility] LABORATORY Specimen Anatomical Collection Method Collection Time Receive d Time (Source) Location / / Volume Laterality Blood 01/23/2022 12:45 01/23/2022 AM EDT 12:51 AM EDT Resulting Agency Comment Spec In Lab Gemma B Pentland BALL MILL OPERATOR BLOOD BANK ORDERABLES Performing Organization Address City/State/ZIP Code Phon e Number [address] ABO/Rh Typing (01/23/2022 12:45 AM EDT) P athologist Signature ABORh Type A Pos [facility] LABORATORY Specimen Anatomical Collection Method Collection Time Receive d Time (Source) Location / / Volume Laterality Blood 01/23/2022 12:45 01/23/2022 AM EDT 12:51 AM EDT Resulting Agency Comment Spec In Lab Gemma B Pentland BALL MILL OPERATOR BLOOD BANK ORDERABLES Performing Organization Address City/State/[place] [address] (ABNORMAL) Basic Metabolic Panel (non-fasting) (01/23/2022 12:45 AM EDT) P athologist Signature Glucose Lvl 143 65 - 199 [facility] mg/dL [facility] LABORATORY Comment: Diabetes: >=200 mg/dL plus symp toms BUN 47 (H) 10 - 20 mg/dL [facility] LABORATORY Creatinine 4.42 (H) 0.80 - 1.50 mg/dL [facility] LABORATORY Sodium 142 135 - 145 mmol/L [facility] LABORATORY Potassium 7.6 (Critical) 3.5 [...] estions. Chloride 102 98 - 107 mmol/L [facility] LABORATORY CO2 17 (L) 22 - 31 mmol/L [facility] LABORATORY Anion Gap 23 (H) 5 - 15 mmol/L [facility] LABORATORY Calcium 5.8 (Critical) 8.5 - 10.5 mg/dL [facility] LABORATORY Comment: Called by: kvng, Read back by: manny ruiz, Date/Time:01/23/22 02:03_. Estimated GFR 17 (L) >=60 mL/min/1.73 m?? [facility] LABORATORY Comment: This patient's estimated [...] Organization Address City/State/[place] [address] (ABNORMAL) Phosphorus (01/23/2022 12:45 AM EDT) P athologist Signature Phosphorus 10.0 2.5 - 4.5 [facility] (Critical) mg/dL [facility] LABORATORY Comment: Called by: kvng, Read back by: manny ruiz, Date/Time:01/23/22 02:03_. Specimen Anatomical Collection Method Collection Time Receive d Time (Source) Location / / Volume Laterality Blood 01/23/2022 12:45 01/23/2022 1:08 AM EDT AM EDT Resulting Agency Comment Spec In Lab Gela Novak MD CHEMISTRY ORDERABLES Performing Organization Address City/[facility]/[place] [address] (ABNORMAL) Magnesium (01/23/2022 12:45 AM EDT) athologist Signature Magnesium 1.08 (H) 0.69 - 1.07 [facility] mmol/L [facility] LABORATORY Specimen Anatomical Collection Method Collection Time Receive d Time (Source) Location / / Volume Laterality Blood 01/23/2022 12:45 01/23/2022 1:08 AM EDT AM EDT Resulting Agency Comment Spec In Lab Gela Novak MD CHEMISTRY ORDERABLES Performing Organization Address City/[facility]/[place] [address] (ABNORMAL) TSH Wilkinson (01/23/2022 12:45 AM EDT) athologist Signature TSH 7.69 (H) 0.27 - 4.20 [facility] mcIU/mL [facility] LABORATORY Comment: Reference Interval (mcIU/mL): Females: ??First Trimester: 0.23-3.88 ??Second Trimester: 0.22-3.90 ??Third Trimester: 0.44-4.66 Specimen Anatomical Collection Method Collection Time Receive d Time (Source) Location / / Volume Laterality Blood 01/23/2022 12:45 01/23/2022 1:08 AM EDT AM EDT Resulting Agency Comment Spec In Lab Cristina Hillman APRN CHEMISTRY ORDERABLES Performing Organization Address City/[facility]/[place] [address] (ABNORMAL) CK (01/23/2022 12:45 AM EDT) athologist Signature CK, Total >165552 0 - 200 JOSH GILMORE (H) unit/L [facility] LABORATORY Specimen Anatomical Collection Method Collection Time Receive d Time (Source) Location / / Volume Laterality Blood 01/23/2022 12:45 01/23/2022 1:08 AM EDT AM EDT Resulting Agency Comment Spec In Lab Gemma B Pentland BALL MILL OPERATOR CHEMISTRY ORDERABLES Performing Organization Address City/[facility]/[place] [address] (ABNORMAL) Troponin (01/23/2022 12:45 AM EDT) athologist Signature Troponin-T 0.43 (H) 0.00 - JOSH VELASQUEZMANDO 0.00 ng/mL [facility] LABORATORY Comment: The 99th percentile for Troponin T is le ss than 0.01 ng/mL, any detectable cTnT concentration using this assay should be considered elevated. According to the third universal definit ion of myocardial infarction the following criteria with a clinical prese ntation consistent with acute myocardial ischemia meets the diagnosis for a myocardial infarction (AK). Detection of a rise and/or fall of [...] additional sample may be indicated. Reference: Third Craig Definition of Myocardial Infarction. Journal of the [place] [employer] 2012;60:1581-98 Specimen Anatomical Collection Method Collection Time Receive d Time (Source) Location / / Volume Laterality Blood 01/23/2022 12:45 01/23/2022 1:08 AM EDT AM EDT Resulting Agency Comment Spec In Lab Gemma B Pentland BALL MILL OPERATOR CHEMISTRY ORDERABLES Performing Organization Address City/State/[place] [address] (ABNORMAL) Hepatic Function Panel (01/23/2022 12:45 AM EDT) Analysis Performed At Patho logist Time Signature Total Protein 5.9 (L) 6.1 - 8.0 [facility] g[facility]dL [facility] LABORATORY Albumin 3.1 (L) 3.2 - 5.2 [facility] g/dL [facility] LABORATORY AST >700 (H) 0 - 39 [facility] unit/L [facility] LABORATORY ALT >700 (H) 0 - 55 [facility] unit/L [facility] LABORATORY Alk Phos 71 40 - [address] [facility] [facility] unit/L [facility] LABORATORY Total 0.4 0.2 - 1.[address] [facility] Bilirubin mg/dL [facility] LABORATORY Bili, Direct 0.2 0.0 - 0.3 [facility] mg/dL [facility] LABORATORY Specimen Anatomical Collection Method Collection Time Receive d Time (Source) Location / / Volume Laterality Blood 01/23/2022 12:45 01/23/2022 1:08 AM EDT AM EDT Resulting Agency Comment Spec In Lab Cristina Hillman BALL MILL OPERATOR CHEMISTRY ORDERABLES Performing Organization Address City/State/[place] [address] Fibrinogen (01/23/2022 12:45 AM EDT) P athologist Signature Fibrinogen Disregard 200 - 393 [facility] LABORATORY Comment: A fibrinogen level [...] Comment Spec In Lab Jaquelinma B Pentland BALL MILL OPERATOR HEMATOLOGY ORDERABLES Performing Organization Address City/[facility]/[place] [address] APTT (01/23/2022 12:45 AM EDT) P athologist Signature PTT Disregard 25 - 37 [facility] LABORATORY Comment: The PTT is [...] Comment Spec In Lab Cristina B Alycialand BALL MILL OPERATOR HEMATOLOGY ORDERABLES Performing Organization Address City/[facility] [place] [address] Prothrombin Time (01/23/2022 12:45 AM EDT) P athologist Signature PT Disregard 9.4 - 12.5 [facility] LABORATORY Comment: Disregard results due to high hematocrit result interference Called by: antonella, Read back by: halley hoyt, Date/Time:01/23/22 01:39. Corrected from 12.7 sec [HI] on 01/23/22 1:39:53 EDT by Robson Booth INR Disregard [facility] LABORATORY Comment: An INR <2.0 indicates [...] Organization Address City/State/[place] [address] POCT Glucose (01/23/2022 12:44 AM EDT) P athologist Signature POC Glucose 146 65 - 199 [facility] mg/dL [facility] LABORATORY Comment: Supplemental ranges: <140 mg/dL before meals <180 mg/dL all other times of the day Specimen Anatomical Collection Method Collection Time Receive d Time (Source) Location / / Volume Laterality Blood 01/23/2022 12:44 01/23/2022 AM EDT 12:44 AM EDT Tex Robles MD POINT OF CARE TEST ORDERABLE S Performing Organization Address City/State/[place] [address] MRSA PCR (01/23/2022 12:44 AM EDT) [facility] gist Method Time Signature MRSA Result Negative Negative [facility] LABORATORY MRSA Interp Negative for methicillin-resistant Staphylococcus aureus (MRSA) [facility] This test was performed using the GeneXpert?? Dx System an d the Xpert MRSA MEMORIAL Assay. The MRSA target DNA was not detec karina. The sample processing control and HOSPITAL probe check were valid. The performance of this test was determined by the [facility] Molecular Pathology Laboratory. It has been maximus red by the U.S. Food and Drug Administration for clinical use. Comment: [VERIFIED DATE]01.25.22 Verified By:Nora Shay (Electronic Signature) Specimen (Source) Anatomical Collection Method Collection Time Re ceived Time Location / / Volume Laterality Nasopharyngeal Swab 01/23/2022 12:44 12/31 AM EDT 8:50 AM EDT Resulting Agency Comment Spec In Lab Cristina Hillman BALL MILL OPERATOR MICROBIOLOGY - GENERAL ORDER JT Performing Organization Address City/State/Z[place] [address] (ABNORMAL) COVID-19 PCR (01/23/2022 12:44 AM EDT) [facility] Method Time Signature SARS-CoV-2 Detected (A) Not Detected JOSH RNA [facility] LABORATORY Comment: This result should be interpreted [...] diagnosis of COVID-19 is performed using the coin4cenity m OG S-CoV-2 Assay as authorized by the FDA Emergency Use Authorization (EUA). This EUA assay is intended for In-vitro Diagnostic (IVD) use with respiratory sp ecimens such as nasopharyngeal swabs collected from individuals during the ac rincon phase of infection. This assay is performed based on the instructions for use provided by [employer] and additional guidance provided by CDC and FDA. Testing is performed in the [facility] Laboratory within the Department of Pathology and Laboratory Medicine at [facility], certified under the Clinical Laboratory Improvement [...] clinical management guidance information are available at [facility] CDC Coronavirus Disease 2019 (COVID-19) webpage under Information fo r Healthcare Professionals (https://www.cdc.gov/coronavirus/2019-nc ov/hcp/index.html) Additional information about this and ot her EUA tests can be found in provider and patient fact sheets at the following FDA website: https://www.fda.gov/medical-devices/cxfhdvfushf-edwzgru-6142-xvfgp-70-cokxhvkeb- umv-yalgjfqdxpwbrr-pkrmpsl-devices/idspn-xvbwtjmauuv-xork SARS-Cov-2 RNA Source Trach Asp [facility] LABORATORY Specimen Anatomical Collection Method Collection Time Receive d Time (Source) Location / / Volume Laterality Tracheal 01/23/2022 12:44 01/23/2022 8:48 Aspirate AM EDT AM EDT Comment: Symptoms->COVID-19 Suspected Resulting Agency Comment Spec In Lab Cristina Hillman APRN MICROBIOLOGY - GENERAL ORDER JT Performing Organization Address City/State/[place] [address] documented in this encounter [...] on Tue02/28/22 at 1745, Last dose on Tue04/04/22 at [...] Given 03/04/2022 8:24 PM EDT 5 mLs sodium hypochlorite (Dakin's) Given 02/08/2022 4:37 PM EDT 143 m Ls 19- Surgical Site 0.5 % solution ONCE PRN, Starting on Tue02/08/22 at 1637, Until Tue02/08/22 at 1911, Intra-Operative (Intra-Procedure) thiamine (Vitamin B1) tablet 100 mg Given [...] tran RN)1248 (Given - Provider: Corina Zabala, RN) 1,000 mg, Oral, EVERY 8 HOURS [...] Peck RN) 0819 (Given - Provider: Corina Zabala, ÁNGEL) 10 mg, Oral, DAILY, First dose (after [...] TIMES DAILY, 2 doses, First dose on Tue03/20/22 at 2100, Last dose on 03/21/22 at [...] TIMES DAILY, 2 doses, First dose on 03/21/22 at 2100, Last dose on 03/22/22 at 0900, Day 4. 4 mg opiate = 4 mg buprenorphine Check for withdrawal symptom s 1 hour after each dose. Contact provid er for COWS score of 6 or greater to decrease buprenorphine dose., Routine buprenorphine-naloxone (Suboxone) 2-0.5 mg disintegrating ta blet 2 tablet 2039 (Given - Provider: Betzaida Francois RN) 0818 (Given - Provider: Corina Zabala RN)1248 (Given [...] Patient/family refused) 0900 (Not Given - Provider: Johs Peck RN - Reason: Patient/family refused)2100 (Not [...] RN) 0844 (Given - Provider: Josh Peck RN)2040 (Given [...] (Gi honorio - Provider: Corina Zabala RN) 1,000 mcg, Oral, DAILY, First dose on Fr i 01/29/22 at 1000, Until Discontinued, Routine heparin (porcine) (5,000 units/1 mL) subcutaneous inje ction 5,000 Units 0322 (Given - Provider: Brittney Ann RN)1107 (Given - Provider: Josh Peck, ÁNGEL)1934 (Given - Provider: Jayme Keenan, ÁNGEL) 0417 (Given - Provider: Jayme Keenan RN)1238 (Given - Provider: Josh Peck RN)2042 (Given - Provider: Betzaida Francois, ÁNGEL) 0304 (Given - Provider: Betzaida Francois RN)1200 [...] (Gi honorio - Provider: Corina Zabala, ÁNGEL) 1 tablet, Oral, DAILY, First dose on [...] Heidi Francois RN)0822 (Given - Provider: Corina Zabala, RN)1248 (See Alternative - Provider: Corina Zabala, RN) 4 mg, Oral, EVERY 4 HOURS PRN, Starting on 03/21/22 at 0941, Until Tue03/23/22 at 1332, Pain, for moderate pain (4-6), May give an additional 2 mg once if pain not relieved in 30-60 minutes., Routine 2038 ( See Alternative - Provider: Betzaida Francois RN) HYDROmorphone (Dilaudid) tablet 4 mg(Linked Group 1) 4 mg, Oral, EVERY 4 HOURS PRN, Starting on 03/23/22 at 1331, Until 03/23/22 at 1719, Pain, for severe pain (7-10), [...] Peck RN)1628 (Given - Provider: Josh Peck RN)203 (Given - Prov ider: Betzaida Francois RN) 0304 (Given - Provider: Betzaida Francois RN)0822 (See Alternative - Provider: Corina Zabala, ÁNGEL)1248 (Given - Provider: Corina Zabala, RN) 6 mg, Oral, EVERY 4 HOURS [...] PRN, Starting on Tue03/23/22 at 1331, Until e 03/23/22 at 1719, Pain, for moderate pain (4-6)
[...] 01/23/22 Precautions may be discontinued by the [facility] team after the required isolation period (10 or 20 days, depending on the clinical circumstances) when the patient is clinically improving and has be en afebrile for 24 hours without fever reducing medications. Estimated date patient will be eligible for precaution removal: 02/03/22 Please call [phone] with questions. Rule Out C. difficile 02/01/2022 [...] prior to 04/25/22 Please call Infection Prevention [phone] with questions. COVID-19Comment: Original COVID-19 test 01/23. Developed symptoms again 02/04/22 so extending isolation to 20 days. 02/04/2022 02/04/2022 02/09/20 22 1:57 PM EDT Eligible for precaution removal 02/13/22 History of COVID-19Comment: Retesting fo r COVID is not recommended unless infectious syndrome persists with no alternate explanation. 02/08/2022 02/08/2022 Positive test on 01/23/2022 Please do not retest prior to 04/25/2022 Please call Infection Prevention [phone] with questions. History of C. difficileComment: 03/19/2022 03/19/2022 Patient has met the 5 C's and is eligible to end soap and water contact precautions. Currently on PO vanc prophylacticly due to getting antibiotics for tx. documented as of this encounter Care Teams Paper Steamer Relationship Specialty Start Date End Date None PCP - General 03/10/19 None documented as of this encounter
--- OUTSIDE RECORDS SUMMARY | 2022-04-21 11:34 | XMS_ITS | Encounter Summary ---
:1990 Author Organization [facility] [place] [address] Care Team Providers Name Role Phone None Primary Care Provider Unavailable Reason for Visit Auth/Cert Specialty Diagnoses / Procedures Referred By Contact Refer red To Contact Diagnoses Cardiac arrest intubated med misuse/covid Tex Robles MD [facility] Procedures ER IPI Admit [facility] [place] [address] Referral ID Status Reason Start Date Expiration Date Visits Requ ested Visits Authorized [id number] 1 1 Encounter Details Date Type Department Care Team Description 02/06/2022 Surgery [facility] RESOURCE, ANESTHESIA CONSULT [facility] Lucret[place] [address] None [phone] Social History Tobacco Use Types Packs/Day Years [...] Sign Reading Time Taken Comments Blood Pressure 119/75 02/06/2022 12:00 PM EDT Pulse 105 02/06/2022 11:00 PM EDT Temperature 37.1 ??C (98.7 ??F) 02/06/2022 10:00 PM EDT Respiratory Rate 16 02/06/2022 11:00 PM EDT Oxygen Saturation 97% 02/06/2022 11:00 PM EDT Inhaled Oxygen Concentration - - Weight 116.8 kg (257 lb 8 oz) 02/05/2022 4:00 AM EDT Height 182.9 cm (6' 0.01) [...] 01/23/2022 Discharge date: 03/23/2022 Admitting Physician: Lu att. providers found Primary Diagnosis: Compartment syndrome Secondary [...] the setting of acute illness or injury (Nelia, JPEN J Parenteral Enteral Nutr. 2012 May; 36(3): 273-83) ??? Transaminitis ??? Aspiration pneumonia ??? Rhabdomyolysis ??? Asymptomatic COVID-19 virus infection ??? Lactic acidosis ??? ALTHEA (acute kidney injury) ??? Continuous renal replacement therapy (CRRT) for acute renal failure ??? Cardiac arrest Resolved Hospital Problems No resolved problems to display. Active Non-Hospital Problems Diagnosis ??? Angioedema ??? Chest pain ??? Smoker ??? Mandible fracture HPI: (Per Cristina Hillman, ASSISTANT PROFESSOR OF SOCIOLOGY on 01/23/2022) History provided by patient's father and chart review. The patient was found by his father at 5pm this evening after an unknown period of down-time. The patient was able to speak and reported left armpain; he also reported taking fentanyl. His father called 911. On EMS arrival he was given narcan without change to neuro exam. The transport events to [facility] are not clear, but the patient [...] was started on levophed and transferred to [facility] for ongoing management. ?? Urine drug screen: +barbiturates, +oxycodone, +opiates Tylenol, salicylates, and ethanol were negative ?? Notable labs: WBC 27.6 Hgb 21.5 Plts 383 ?? K 7.8-> 5.4 CO2 11 BUN 32 Cr 4.37 AG 35 Lactate >10 ?? AST 3588 ALT 990 ?? Trop-I >9000 ?? SARS-CoV-2 RNA detected ? En-route to [facility] he was given boluses of ketamine for ventilator synchrony. He arrives on with HR in the 150s. He was [...] escalated. On 02/10 [facility] and transferred back to the floor on [...] Allowed for activity as tolerated. Weaning dilaudid TEACHER AIDE CLERICAL. Seen by PT/OT with rec for rehab. 03/17: Dressings changed at bedside. Continue TEACHER AIDE CLERICAL weaning. Low phos, high protein, high calorie diet.IV vanc and meropenem started (-03/19) and PO vanc (- 03/26). Emesis x1. 03/18: TEACHER AIDE CLERICAL dc'd. BIT consulted for suboxone. Bedside dressing change. 03/19: To be dc'd to [facility] with bed availability. High UOP w/ suspected [...] who have questions please contact the health administrator health care facility that requested your imaging first. Electronically signed by: Sona Haji MD, [facility] ([phone]), at 01/23/2022 2:[address] Head wo Contrast (Generic) (Exam End: 01/23/2022 3:58 AM) Impression Globi pallidi infarcts. Mild cerebral edema. Thank you for letting us participate in the care of this patient. If you are a health care provider and have any questions regarding this report, please contact the number below. For patients who have questions please contact the health administrator health care facility that requested your imaging first. Electronically signed by: Rex Addison MD, [facility] ([phone]), at 01/23/2022 4:27 AM XR Abdomen 1 [...] who have questions please contact the health administrator health care facility that requested your imaging first. Electronically signed by: Jacky Mello MD, [facility] ([phone]), at 01/23/2022 8:[address] Lower Extremity [...] who have questions please contact the health administrator health care facility that requested your imaging first. Electronically signed by: Melita Mills MD, [facility] ([phone]), at 01/24/2022 1:[address] Chest wo [...] who have questions please contact the health administrator health care facility that requested your imaging first. Electronically signed by: Rex Addison MD, [facility] ([phone]), at 01/23/2022 4:[address] Upper Extremity [...] who have questions please contact the health administrator health care facility that requested your imaging first. Electronically signed by: Rex Addison MD, [facility] ([phone]), at 01/23/2022 4:58 AM XR Forearm Left [...] who have questions please contact the health administrator health care facility that requested your imaging first. Electronically signed by: Rex Addison MD, [facility] ([phone]), at 01/23/2022 7:14 AM XR Chest One [...] who have questions please contact the health administrator health care facility that requested your imaging first. Electronically signed by: Rex Addison MD, [facility] ([phone]), at 01/23/2022 6:56 AM XR Femur 2 views Left (Generic) (Exam End: 01/23/2022 2:04 PM) Impression No significant osseous finding. Thank you for letting us participate in the care of this patient. If you are a health care provider and have any questions regarding this report, please contact the number below. For patients who have questions please contact the health administrator health care facility that requested your imaging first. Electronically signed by: Lisandro Pruett MD, [facility] ([phone]), at 01/23/2022 2:10 PM XR Tibia Fibula Left (Generic) (Exam End: 01/23/2022 2:04 PM) Impression No bony abnormality seen. Thank you for letting us participate in the care of this patient. If you are a health care provider and have any questions regarding this report, please contact the number below. For patients who have questions please contact the health administrator health care facility that requested your imaging first. Electronically signed by: Jacky Mello MD, [facility] ([phone]), at 01/23/2022 2:07 PM XR Chest One [...] who have questions please contact the health administrator health care facility that requested your imaging first. Electronically signed by: Lisandro Pruett MD, [facility] ([phone]), at 01/23/2022 5:01 PM MRI Brain wo [...] who have questions please contact the health administrator health care facility that requested your imaging first. Electronically signed by: Bernadine Edward [facility] ([phone]), at 01/24/2022 4:[address] Angiogram [place] (Exam End: 01/24/2022 11:32 PM) Impression Normal appearance of the large and medium size arteries of the head and neck Thank you for letting us participate in the care of this patient. If you are a health care provider and have any questions regarding this report, please contact the number below. For patients who have questions please contact the health administrator health care facility that requested your imaging first. Electronically signed by: Arun Helm MD, [facility] ([phone]), at 01/25/2022 10:[address] Angiogram Carotids (Exam End: 01/24/2022 11:32 PM) Impression Normal appearance of the large and medium size arteries of the head and neck Thank you for letting us participate in the care of this patient. If you are a health care provider and have any questions regarding this report, please contact the number below. For patients who have questions please contact the health administrator health care facility that requested your imaging first. Electronically signed by: Arun Helm MD, [facility] ([phone]), at 01/25/2022 10:[address] Chest Abdomen Pelvis w Contrast (Generic) (Exam [...] who have questions please contact the health administrator health care facility that requested your imaging first. Electronically signed by: Melita Mills MD, [facility] ([phone]), at 01/30/2022 3:20 PM IR Arteriogram Lower [...] 2. Flat for 2 hours, following Right POLYTECHNIC REGISTRAR Mynx closure deployment 3. Monitor for Right [...] a permanent image was stored. A 5 Czech sheath was placed. Vessel accessed: Right common femoral artery Access technique: Micropuncture set with 21 gauge needle Left pelvic angiography The left pelvic arterial system was catheterized using a 150 cm 0.035 3J guidewire, 5 Czech Berenstein catheter, 3 Czech renegade STC microcatheter and wire. Vessel catheterized: [...] Specimens removed: None Estimated blood loss (mL): Standardized report: [id number] Attestation Signer name: Nicole [...] who have questions please contact the health administrator health care facility that requested your imaging first. Electronically signed by: Nicole Vivas MD, [facility] ([phone]), at 02/08/2022 3:14 PM XR Chest One [...] who have questions please contact the health administrator health care facility that requested your imaging first. Electronically signed by: Boubacar Olsen MD, [facility] ([phone]), at 02/07/2022 1:37 PM MRI Brain wo [...] who have questions please contact the health administrator health care facility that requested your imaging first. Electronically signed by: Bernadine Edward, [facility] ([phone]), at 02/11/2022 5:54 PM XR Abdomen 1 view (Generic) (Exam End: 02/13/2022 8:10 AM) Impression No obstruction. No perforation. Thank you for letting us participate in the care of this patient. If you are a health care provider and have any questions regarding this report, please contact the number below. For patients who have questions please contact the health administrator health care facility that requested your imaging first. Electronically signed by: Mercedes Redding MD, [facility] ([phone]), at 02/13/2022 8:[address] Abdomen & [...] who have questions please contact the health administrator health care facility that requested your imaging first. Femur w [...] who have questions please contact the health administrator health care facility that requested your imaging first. PICC Placement [...] who have questions please contact the health administrator health care facility that requested your imaging first. Electronically signed by: Danielle Figueroa MD, [facility] ([phone]), at 03/03/2022 2:49 PM Discharge Exam: Last value Range last 12 hrs Temperature Temp: 36.4 ??C (97.5 ??F) Temp: -- Heart Rate Heart Rate: (!) 118 Heart Rate: [118] Blood Pressure BP: 154/87 BP: (154)/(87) Respiratory Rate Resp: 16 Resp: [16] SpO2 SpO2: 97 % SpO2: [97 %] I/Os: I/O last 3 completed shifts: In: 5040 [P.O.:5040] Out: 70302 [Urine:12271] I/O this shift: In: - Out: 500 [Urine:500] Gen: AOx3, NAD, resting comfortably CVS: Regular rate and rhythm Resp: breathing comfortably on RA Abd: soft, non-tender, nondistended Ext:: LLE wound with dressing in place,??non-tender,??L forearm wound under dressing, non tender.??Incision: dressing c/d/i. No evidence of hematoma/seroma/infection Discharge Plans: Discharge to: Rehab Name of facility: [facility] Contact information: Dr. Rosa, VNA: No Discharge Conditions/Prognosis: Stable Discharge Medications: The following medications have been prescribed for you. If you notice any adverse reactions to your medications, please contact your primary care physician immediately or go to the nearest Emergency Department. In addition to these medications, you are being prescribed Suboxone 8mg BID. Please continue this medication at [facility]. Your Medications New Medications Dose Details [...] Date: 10/22/22 Question Response Notes Preferred location? [facility] [106] Indication for study/signs & symptoms [...] after your discharge, it may be necessary mihcelle re-evaluated by your physician. Driving Restrictions: - [...] 1. You will have follow-up appointments at [facility] as indicated in the ???Future Appointments and [...] on the next business day. Please call [phone] if you do not hear from us by that time, as your timely follow-up is very important to us. Your care was managed by the Trauma and Acute Care Surgery Team at [facility]. If you have any questions or concerns, please feel free to contact us. Provider Contact Information: General Surgery: [facility] (after business hours): CC: Compartment syndrome Primary Care Physician: None General Instructions Substance Use Treatment, Harm-Reduction, and Relapse Prevention Resources Residential Treatment: [facility] [address] [place], [place] [id number] [address] [address] Intensive Outpatient Programs: [facility] [address] [place], [place] [id number] Health Care and Rehabilitative Services [address] [place] [phone] Individual Counseling: [facility] [address] [place], [place] [id number] ALEX Whitlock [address], [address] [place] [address] ----and---- [address] [place] [address] [facility] [address], [address] [place] [address] Offers EMDR Therapy You may also search www.psychologytoday.com or Sensorly for therapists in your area. EMDR Therapy [...] completed in fewer sessions than other psychotherapies. www.emdria.org/tdtue-ztzh-jnoedfl/ Medication Assisted Therapy: [facility] [address] [place], [place] [address] [address] [id number] [facility] [address] [place] [address] [facility], [place] [id number] [facility] [address] [place] [address] [facility], [place] [phone] Peer Support Groups Alcoholics Anonymous (AA) [place]: , www.nhaa.net Narcotics Anonymous (NA) [place]: , www.gmana.org Community Peer Support Center Journey to Recovery [address] [place], [place] Online AA and NA Meetings AA, NA, Refuge Recovery, SMART Recovery www.Domo AA Video Meetings www.aa-intergroup.org/directory_audio-video.php AA Text Chat Meetings www.aa.intergroup.org/directory.php NA Video Meetings www.virtual-na.org/meetings NA Text Chat Meetings Www.neveraloneclub.org SMART Recovery Meetings via Zoom 5:00-6:00pm, free and open to all To join Zoom meetin. Visit www.SiTune 2. Click on calendar on top of toolbar 3. Find the correct meeting date and time 4. Click the zoom link and enter password provided Additional Substance Use Treatment Resources Www.ElephantDriveddictionservices.org www.health[place]mont.gov/alcohol-drugs www.[place] [address].org/ (Search for Substance Use) www.psychologytoday.YYzhaoche/ Www.rethinkingdrinking.niaaa.nih.gov/ www.samhsa.gov/xosyfzwgmk-atmerbwn-guomxgjtw/numoccuxksky-ehamkyp-kajb/treatment -practitioner-patient care secretary Mental Health Crisis National Mental Health Crisis Line: Dial 988 www.[facility].gov/find-help/980 Harm-Reduction Resources Mobile operations. For more information about receiving supplies: including syringe exchange, fentanyl test strips, and naloxone, or to schedule an appointment: [place] clients call and leave a message for Graciela (ext. 105) or Doc Liu (ext. 104). [place] clients call to speak with Doc Choi [...] is being approved. Online Stress Reduction Resources www.THE Football App/videos-features/videos/bwqmjckbx-cftbarovw-8-7-8-breath/ www.Three Melons.[employer]/2013/myzmtexce-blxmthezd-ataocbm-moment/ www.Cynvec/ www.mindful.org/ www.freeShopnlistness.org/ Employment Agency [employer] [address] [place] [address] [email or web address] Providing an opportunity for successful employment and recovery by empowering individuals to manage challenges because of substance use addiction and past convictions. CC: Compartment Syndrome Signed: Vance Curiel MD PGY1 Acute Care Surgery Team Pager [phone] 03/23/2022 4:18 PM I saw and evaluated [...] in this encounter Discharge Instructions Discharge InstructionsMiguel Prather APRN - 02/12/2022 3:40 PM EDT Substance Use Treatment, Harm-Reduction, and Relapse Prevention Resources [facility]: [facility] [address] [place], [place] [id number] [address] [id number] Intensive Outpatient Programs: [facility] [address] [place] [address] Health Care and Rehabilitative Services [address] [place] [address] Individual Counseling: [facility] [address] [place], [place] [phone] ALEX Whitlock [address] [place] [address] ----and---- [address], [place] [phone] [facility] [address], [address] [place], [place] [phone] Offers EMDR Therapy You may also search www.DeepRockDriveday.YYzhaoche or Sensorly for therapists in your area. EMDR Therapy [...] completed in fewer sessions than other psychotherapies. www.emdria.org/xecpd-yspn-tdbfdfv/ Medication Assisted Therapy: [facility] [address] [place], [place] [id number] [address] [id number] [facility] [address] [place] [address] [facility] [place] [phone] [facility] [address] [place] [address] [place] [address] Peer Support Groups Alcoholics Anonymous (AA) [place]: , www.nhaa.net Narcotics Anonymous (NA) [place]: , www.gmana.org Community Peer Support Center [facility] Recovery [address] [place], [place] Online AA and NA Meetings AA, NA, Refuge Recovery, SMART Recovery www.Domo AA Video Meetings www.aaDenwa Communicationsintergroup.org/directory_audio-video.php AA Text Chat Meetings www.aaJoySports.org/directory.php NA Video Meetings www.MobileWebsitesna.org/meetings NA Text Chat Meetings Www.BrainomixaloneEasyclass.comub.org SMART Recovery Meetings via Zoom 5:00-6:00pm, free and open to all To join Zoom meeting: Visit www.SiTune Click on calendar on top of toolbar Find the correct meeting date and time Click the zoom link and enter password provided Additional Substance Use Treatment Resources Www.vtaddictionservices.org www.health[place].gov/alcohol-drugs www.[place] [address].org/ (Search for Substance Use) www.Sparkbrowser/ Www.rethinkingdrinking.niaaa.nih.gov/ www.samhsa.gov/dgzqdnoubx-rygratcc-epcxhtagx/gfkojafbwisn-ncxgdke-pugj/treatment -practitioner-patient care secretary Mental Health Crisis Idanha Mental [facility] Crisis Line: Dial 988 www.[facility].gov/find-help/988 Harm-Reduction Resources [place] Outright. For more information about receiving supplies: including syringe exchange, fentanyl test strips, and naloxone, or to schedule an appointment: [place] clients call and leave a message for Graciela (ext. 105) or Doc Liu (ext. 104). [place] clients call to speak with Doc Choi [...] is being approved. Online Stress Reduction Resources www.National Recovery Services.YYzhaoche/videos-features/videos/ivcykqtgr-glicvzszi-6-7-8-breath/ www.M_SOLUTIONord.org/2013/ilmyapldz-xfjhbhxas-zngmgwz-moment/ www.Beetailer.YYzhaoche/ www.mindful.org/ www.freeShopnlistness.org/ Employment Agency [employer] [address] [place] [address] [email or web address] Providing an opportunity for successful employment and [...] 1. You will have follow-up appointments at [facility] [place] as indicated in the ???Future Appointments and [...] on the next business day. Please call [phone] if you do not hear from us by that time, as your timely follow-up is very important to us. Your care was managed by the Trauma and Acute Care Surgery Team at [facility]. If you have any questions or concerns, please feel free to contact us. Provider Contact Information: General Surgery: [facility] (after business hours): CC: Compartment syndrome Primary Care Physician: None AttachmentsThe following attachments cannot be sent through Care Everywhere. Compartment Syndrome (Syriac)documented in this encounter Medications at Time of [...] Take 1 capsule by 12 capsule 0 03/23/ 022 03/26/2022 125 mg Capsule mouth 4 times daily for 3 days. documented as of this encounter Progress Notes Corina Zabala RN - 03/23/2022 3:13 PM EDT [facility] Report given to [facility]NGEL Roland. Ambulance arrived 1430 to transport pt. Piccremains in place. Hernán Hobbs - 03/23/2022 2:11 PM EDT Office of Care Management/Manager Materials Management Patient Name: Alix Holland : 1990 Patient has been offered an Acute IRF bed at [facility]. [facility] arranged for a BLS transport at 1430. Ambulance will need: Medicare ambulance form completed and signed (MD or Bakery And Deli Sales Manager RN/SPRINKLER REPAIR TECHNICIAN) Copy of patient demographics [place] [facility] DNR/DNI order, if active MD to MD report to Dr. Rosa at [phone]. Please call Nursing Report to [phone], ask for card feeder. Info to accompany patient: Copies of Medication Administration Records and IV sheets for past 10 days. Plan: Manager Materials Management will be available to the patient and Bakery And Deli Sales Manager-RN and/or Gunner'S Mate M for further assistance. Patient will be discharged to: [place] [address] Hernán Hobbs Manager Materials Management Sivakumar Trevino PTA - 03/23/2022 1:25 PM [...] managment/propulsion training. Total Minutes, Physical Therapy: 55 ([phone]) Billing Code: TESx2, TEFx2 Sivakumar TrevinoSVETLANA Pager: [phone] Physical Therapy Inpatient Rehabilitation Department Lizzy Love, RN - 03/23/2022 12:41 PM EDT Physician Certification Statement for Non-Emergency Ambulance Services Section I - General Information Alix Holland 1990 Medicaid Number:[id number] Transport Date: 03/23/2022 (PCS is valid for round trips on this date and for all repetitive trips in the 60-day range as notedbelow.) Origin: [facility] Destination: [facility] Acute Rehabilitation and Sub-Acute (Swing) Rehab Levels of Care [address] [place] [address] Is the patient's stay covered under Medicare [...] van (i.e. seated during transport, without medical hospital sales or monitoring?): No 4) In addition to [...] by the Centers of Medicare and MedicaidServices ([facility]) to support the determination of medical necessity [...] pt need to f-u with surgeon or HARDSCAPE FOREMAN (please indicate reason if attending provider): Attending [...] 8:46 AM EDT Nutrition Progress Note Alix Melita Crooks or SEE is a 31 y.o. [...] and left superior gluteal artery via R POLYTECHNIC REGISTRAR access. Reason for intervention: Follow up Nutrition [...] 02/05/2022 TRIG 359 01/26/2022 CRP <3.0 04/26/2021 [id number] 02/03/2022 25OHVITD 12 (L) 02/19/2022 SFOLATE [...] encounter: 78.2 kg (172 lb 8 oz). [place] Body Weight: 80.9kg- [place] Usual Body Weight: [...] Based on IBW 80.9kg Estimated needs: Calories: 0946-6248 (25-30kcal/kg) Protein: 120 grams (1.5 g/kg IBW) Nutrition Focused Physical Exam (NFPE): Performed on 03/01/22. Subcutaneous fat loss at Orbital region: Moderate Upper arm region (triceps/biceps): Mild Thoracic and lumbar region (ribs, lower back and maxillary line): Not assessed Lean muscle loss to Mu-Ism region (temporalis muscle): Moderate Clavicle bone region [...] while inpatient THANKS KAYLAH JANG RD Pager #:[phone] Josh Peck RN - 03/22/2022 6:30 PM [...] difficulty obtaining soboxone prescription. Bed available at [facility]. Dressing changes today by nursing. [...] Gomez MD PGY1 Acute Care Surgery pager [phone] I saw and evaluated the patient with [...] Hidalgo MD PGY5 Acute Care Surgery pager [phone] Attending Addendum I have seen and examined [...] left thigh wound, MRSA, Pseudomonas ASSESSMENT: Alix Holladn is a 31 y.o. male with HTN, [...] Hidalgo MD PGY5 Acute Care Surgery pager [phone] Attending Addendum I have seen and examined [...] 03/19/2022 4:11 PM EDT Per request this rewriter updated patient on inpatient rehabilitation facility search, informed that [facility] is following the referral, however at this time does not have acute rehab bed availability till 03/22/2022. Alix would like referral to [facility] which is closed to home. Discussed that [facility] is SNF with less therapy hours available. Patient verbalized understanding and in would like referral placed to: [address] [address] RS please submit referral with all supporting [...] Started Suboxone per Psych recs. - Discontinued TEACHER AIDE CLERICAL Dilaudid yesterday (03/18). - Discontinued IV Vanc [...] activity status remains as activity as tolerated. PTamami OT saw him on 03/16 and suggested discharge to acute care rehab when medically cleared; case management has contacted two facilities and placement is ongoing. Possibly will be discharged to [facility] but there are no beds currently. He may need a COVID test prior to discharge per facility request; otherwise, monitor with weekly CBCs and BMPs. He had his dressings changed at the bedside yesterday with Dr. Chatterjee who used Aquafor instead of silver gel. TEACHER AIDE CLERICAL (dilaudid) was discontinued yesterday (03/18). He completed [...] status; PT/OT consulted: recommend acute rehab - Radio Sales Account Executive sent requests to 2 locations with ongoing [...] plan to change again today. - D/C TEACHER AIDE CLERICAL (Dilaudid) today. - On IV Vanc and [...] is ongoing. Possibly will be discharged to [facility] but there are no beds currently. He had his dressings changed at the bedside yesterday with Dr. Chatterjee who used bacitracin; completed another dressing change today with Aquafor instead of silver gel. TEACHER AIDE CLERICAL (dilaudid) was discontinued today. Diet remains as high calorie/protein with the addition of TUMS at meals. He will complete a course of IV Vancomycin and Meropenem (ends 03/19) before switching to PO Vancomycin (ends 03/26). Plan: Neuro: #Pain - AMERICA PO Tylenol 1000 mg q8h - D/c dilaudid TEACHER AIDE CLERICAL - PO Oxycodone 10-15 PRN Q4 #Polysubstance [...] status; PT/OT consulted: recommend acute rehab - Radio Sales Account Executive sent requests to 2 locations with ongoing [...] 03/26) as recommended by ID - Weaning TEACHER AIDE CLERICAL (barbara) with the plan to d/c it [...] managment/propulsion training. Total Minutes, Physical Therapy: 60 ([id number]) Billing Code: TEFx2, GT Sivakumar Gaines SVETLANA Trevino Pager: [phone] Physical Therapy Inpatient Rehabilitation Department Jeanette Chatterjee [...] 03/26) as recommended by ID - Weaning TEACHER AIDE CLERICAL (dilaudid) with the plan to d/c it [...] another dressing change tomorrow with silver gel. TEACHER AIDE CLERICAL will continue to be weaned. Diet was changed from low phosphorus to high calorie/protein with the addition of TUMS at meals. Additionally, his antibiotics were restarted today; he will complete a course of IV Vancomycin and Meropenem (ends 03/19) before switching to PO Vancomycin (ends 03/26). Plan: Neuro: #Pain - [place] PO Tylenol 1000 mg q8h - dilaudid TEACHER AIDE CLERICAL, weaning - PO Oxycodone 10-15 PRN Q4 [...] Dispo: Floor status; PT/OT consulted, recommend acute rehab--Radio Sales Account Executive sent requests to 2 locations. Code Status: [...] - Now off of antibiotics - Weaning TEACHER AIDE CLERICAL (dilaudid) Social History: Home setup: Pt lives [...] had pt perform gastroc stretch with leg door operator MMT L Gastroc 2-/5 Balance: Seated Static: [...] Pt limited in distance due to his TEACHER AIDE CLERICAL pump, but once DCd pt could likely [...] managment/propulsion training. Total Minutes, Physical Therapy: 40 ([id number]) Billing Code: DEACON SAMUELS PTA Pager: [phone] Physical Therapy Inpatient Rehabilitation Department Jairo Kirkland [...] 431 msec Imaging: External records in - [facility]: Yes - CareEverywhere: No - Paper [...] Felix MD Infectious Diseases Fellow- PGY4 Pager: [phone] 03/16/2022 2:15 PM ID Attending I have [...] LUE ?? Social History: Patient lives in [place], [place] with his dad. Home Setup: [address] [facility], 2 level home, bedroom on 1st level, bathroom available on 1st level, has a tub shower downstairs. DME: none Baseline ADL/Mobility: Pt reports he was independent w/ ADL's and IADL's, had worked for a [employer]. He enjoys hunting and fishing. He reports he likes country music ?? Interval History: Pt to OR last week for LUE and LLE grafts. Per MD Note 03/16 - Now off of bedrest - Dressing change in the OR yesterday - Now off of antibiotics - Weaning TEACHER AIDE CLERICAL (dilaudid) Precautions/Special Considerations: SOAP/WATER; fall risk, LUE/LLE WBAT, L forearm and L thigh grafts, TEACHER AIDE CLERICAL S: I need some help with that [...] Occupational Therapy: 30 (critical access hospital x2 ([phone]) Pager: [phone] [facility] Occupational Therapy Rehabilitation Department Kaylah Jang, LISA - 03/16/2022 8:53 AM EDT Nutrition Progress [...] and left superior gluteal artery via R POLYTECHNIC REGISTRAR access. Reason for intervention: Follow up Nutrition Recommendations: Regular diet ; enc high protein high calorie Given tendency toward intake < est needs, suggest omit low phosphorus restriction and give TUMs w/ meals Limit NPO to periods to only when necessary to avoid missing nutrition windows Encourage pt to continue double portions protein and milk with meals Discussed above w/ E. Sergio HARTLEY #[id number] Active Orders Diet High Protein - High [...] 02/05/2022 TRIG 359 01/26/2022 CRP <3.0 04/26/2021 [id number] 535 02/03/2022 25OHVITD 12 (L) 02/19/2022 SFOLATE [...] encounter: 78.9 kg (173 lb 15.1 oz). [place] Body Weight: 80.9kg- [place] Usual Body Weight: [...] Based on IBW 80.9kg Estimated needs: Calories: 8758-3004 (25-30kcal/kg) Protein: 120 grams (1.5 g/kg IBW) Nutrition Focused Physical Exam (NFPE): Performed on 03/01/22. Subcutaneous fat loss at Orbital region: Moderate Upper arm region (triceps/biceps): Mild Thoracic and lumbar region (ribs, lower back and maxillary line): Not assessed Lean muscle loss to Mu-Ism region (temporalis muscle): Moderate Clavicle bone region [...] while inpatient THANKS KAYLAH JANG RD Pager #:[phone] Jeanette Chatterjee MD - 03/16/2022 5:38 AM [...] - Now off of antibiotics - Weaning TEACHER AIDE CLERICAL (dilaudid) Objective Vitals: Last Value Range last [...] all extremities equally Labs: Recent Labs 03/13/22 06 WBC 8.0 [...] Their notes will be sent by the Radio Sales Account Executive to the rehab facilities. Will likely have dressing change tomorrow. Currently weaning his dilaudid TEACHER AIDE CLERICAL. Plan: Neuro: #Pain - [place] PO Tylenol 1000 mg q8h - dilaudid TEACHER AIDE CLERICAL, weaning - PO Oxycodone 10-15 PRN Q4 [...] PT/OT and dispo planning Matthias Chatterjee MD Nanette Holloway RN - 03/16/2022 3:40 AM EDT Assumed care of patient. Head to toe assessment remains unchanged from previous clark driver. Patient states pain is /, PRN medication given and pt repositioned. Dilaudid TEACHER AIDE CLERICAL infusing with TEACHER AIDE CLERICAL doseonly. No complaints of chest pain/SOB. No [...] recommendations below - Pain remains well-controlled with TEACHER AIDE CLERICAL and decreasing - Tolerating High calorie, high [...] bedrest. Plan: Neuro: [place] PO Tylenol, dilaudid TEACHER AIDE CLERICAL, PO Oxycodone 10-15 PRN Q4, Zofran PRN, [...] Oxycodone given. Takes sips of water easily. TEACHER AIDE CLERICAL re-started per order. Pt. Self dosing. Has [...] PICC line placed 03/03/2022 External Record in [facility]: Yes Care Everywhere:No Paper Record: No [...] Felix MD Infectious Diseases Fellow- PGY4 Pager: [phone] 03/15/2022 8:55 AM I have discussed case with Dr. Jairo Kirkland This note was created using [employer] voice recognition software. ID Attending I have [...] Reporting 8 to 10/10 pain, using dilaudid TEACHER AIDE CLERICAL and PRN oxygen given x2. No BM [...] recommendations below - Pain remains well-controlled with TEACHER AIDE CLERICAL and decreasing - Tolerating High calorie, high [...] that time. Plan: Neuro: [place] PO Tylenol, TEACHER AIDE CLERICAL, PO Oxycodone 10-15 PRN Q4, Zofran PRN [...] kerlix, coban - Pain remains well-controlled with TEACHER AIDE CLERICAL - Tolerating High calorie, high protein diet [...] 1g Q8H. Plan: Neuro: [place] PO Tylenol, TEACHER AIDE CLERICAL PO Oxycodone 10-15 PRN Q4, Zofran PRN [...] 4 Acute Care Surgery 03/13/22 Team Pager [phone] A medical student assisted me in the [...] 10:41 AM EDT Patient came back [facility] from PACU via bed in stable condition. Amy Pineda RN - 03/13/2022 10:31 AM EDT 0931 Pt arrived to PACU lethargic, oral airway in place. Connected to monitors, alarms set and reviewed. VSS. LUE/LLE dressings CDI, only to be changed by MD. RLE dressings with dried drainage. 0945 Pt more awake, c/p pain, utilizizing TEACHER AIDE CLERICAL. 1000 Tolerating sips of lenora opal. Report given to ÁNGEL Deleon on 4 Adrienne Tejada RN - 03/13/2022 7:52 AM [...] suction - Pain remains well controlled with TEACHER AIDE CLERICAL - Tolerating High calorie, high protein diet [...] MS4 Acute Care Surgery 03/12/22 Team Pager [phone] A medical student assisted me in the [...] out of bed. JASWINDER CHUNG PTA Pager: [phone] Physical Therapy Inpatient Rehabilitation Department Adrienne Tejada [...] any alarming from wound vac, immediately page [phone]. S/p 3 days of IV iron, now [...] 03/14 for OR. If any alarming, page [phone]. - s/p multiple fasciotomies, OR debridements, and [...] VAC particularly not holding suction please page [phone] immediately given that thiswill affect skin graft take -High-protein high-calorie low Phos diet -Plan to return to the operating room on Tuesday for VAC removal, bedrest until then -TEACHER AIDE CLERICAL for pain control will wean as able Veto Hidalgo MD PGY 5 Acute care surgery pager [phone] Marylou Retana RN - 03/10/2022 7:12 PM EDT Patient arrived back to unit from PACU @ approximately 1630. VSS on RA, drowsy but arouses to voice.TEACHER AIDE CLERICAL in place, pt continues to report 10/10 [...] of skin grafting still being determined, potentially Wednesday. Due to low iron stores, patient was [...] Cardiopulmonary Resuscitation - Inpatient Alonzo Oakley, MS4 03/10/22 Acute Care Surgery Team Pager [phone] A medical student assisted me in the [...] wound cx: Pseudomonas, serratia Endo: JAVON MSK: Roland changed at bedside. Plan for grafting Tuesday [...] Attempt Cardiopulmonary Resuscitation - Inpatient Norbert Silvia, MS4 03/09/22 Acute Care Surgery [phone] Nancy [...] LUE ?? Social History: Patient lives in [place], [place] with his dad. Home Setup: [address], 2 level home, bedroom on 1st level, bathroom available on 1st level, has a tub shower downstairs. DME: none Baseline ADL/Mobility: Pt reports he was independent w/ ADL's and IADL's, had worked for a [employer]. He enjoys hunting and fishing. He reports [...] Pt demonstrated ability to doff socks with vehicle damage appraiser and don socks with sock aid ?? [...] Occupational Therapy: 32 (critical access hospital x2 ([phone]) Pager: [phone] [facility] Occupational [facility] Rehabilitation Department Tanesha [...] Denilson Muniz - 03/08/2022 3:14 PM EDT Molding Associate Encounter Note Patient Name: Alix Holland : [id number] MR#: [id number] Admit Date: 01/23/2022 12:29 AM Hospital Day 44 days Narrative:Visited to introduce and assess acceptance of Molding Associate services.Patient was not available and I will [...] wrapped pt's L LE in an AFO tmaie wrap to prevent foot drag while transferring [...] Physical Therapy: 40 TE-F x 3 JASWINDER CHUNG PTA 03/08/2022 Pager: [phone] Physical Therapy Inpatient Rehabilitation Department Lizzy Miranda, [...] and left superior gluteal artery via R POLYTECHNIC REGISTRAR access. Reason for intervention: Follow up Nutrition [...] 02/05/2022 TRIG 359 01/26/2022 CRP <3.0 04/26/2021 [id number] 535 02/03/2022 25OHVITD 12 (L) 02/19/2022 SFOLATE [...] encounter: 77.4 kg (170 lb 11.2 oz). [place] Body Weight: 80.9kg- [place] Usual Body Weight: [...] Based on IBW 80.9kg Estimated needs: Calories: 5723-3124 (25-30kcal/kg) Protein: 120 grams (1.5 g/kg UBW) Nutrition Focused Physical Exam (NFPE): Performed on 03/01/22. Subcutaneous fat loss at Orbital region: Moderate Upper arm region (triceps/biceps): Mild Thoracic and lumbar region (ribs, lower back and maxillary line): Not assessed Lean muscle loss to Mu-Ism region (temporalis muscle): Moderate Clavicle bone region [...] while inpatient THANKS Lizzy Miranda RD Pager #:[phone] Nancy Chahal MD - 03/08/2022 2:35 PM [...] Attempt Cardiopulmonary Resuscitation - Inpatient JEFFERY Peterson 03/07/22 Acute Care Surgery [phone] A medical [...] 1:30 AM EDT WOUND VAC NOTE Alix Hua Amalia 31 y.o./male [id number] DATE: 03/07/22 Admit Date: 01/23/2022 12:29 AM [...] Unasyn (01/23-01/26 and 01/29-02/01), Cefazolin (01/26-01/29 and 02/01-7/10), Zosyn (02/08-02/11) - 02/15 L Thigh wound [...] them as documented. Jayme Armstrong MD Jaswinder Chung, POWDER CORE TESTER - 03/05/2022 10:55 AM EDT Physical Therapy [...] IADLs, drives, used to work for a [employer] company but is not currently working. Enjoys [...] Therapy: 30 TE-F x 2 JASWINDER CHUNG, POWDER CORE TESTER 03/05/2022 Pager: [phone] Physical Therapy Inpatient Rehabilitation Department Tanesha Patel [...] LUE ?? Social History: Patient lives in [place], [place] with his dad. Home Setup: [address] [facility], 2 level home, bedroom on 1st level, bathroom available on 1st level, has a tub shower downstairs. DME: none Baseline ADL/Mobility: Pt reports he was independent w/ ADL's and IADL's, had worked for a [employer] company. He enjoys hunting and fishing. He [...] Occupational Therapy: 35 (critical access hospital x2 ([phone]) Pager: [phone] [facility] Rehabilitation Department Jayme [...] q4 hours and scheduled tylenol for pain 04/01-10 with some relief. NPO. Voiding qs. See Ed H for assessment. Herberth Kirkland RN Danna Jaswinder Martinez POWDER CORE TESTER - 03/03/2022 10:25 AM EDT Physical Therapy [...] IADLs, drives, used to work for a [employer] company but is not currently working. Enjoys [...] 30 TE-F x 2 JASWINDER CHUNG PTA 03/03/2022 Pager: [phone] Physical Therapy Inpatient Rehabilitation Department Jayme Armstrong [...] and 01/29-02/01), Cefazolin (01/26-01/29 and 02/01-02/07), Zosyn (02/08-7/14) - 02/15 L Thigh wound culture: Pseudomonas, [...] Number OT: 5 Patient Dx: Per note: Ailx Holland is a 31 y.o. male [...] LUE ?? Social History: Patient lives in [place], [place] with his dad. Home Setup: [address] [facility], 2 level home, bedroom on 1st level, bathroom available on 1st level, has a tub shower downstairs. DME: none Baseline ADL/Mobility: Pt reports he was independent w/ ADL's and IADL's, had worked for a [employer]. He enjoys hunting and fishing. He reports [...] Occupational Therapy: 35 (critical access hospital x2 ([phone]) Pager: [phone] [facility] Occup[facility] Rehabilitation Department Madhavi [...] Given lenora opal and water at bedside, Compton sandwich requested. LUE wound VAC dressing intact [...] (Room air) Intake/Output: 02/28 0701 - 03/01 07 In: 1320 [P.O.:1320] Out: 7900 [Urine:7900] Physical [...] after the operating room. Jayme Armstrong MD Cristy Denilson - 03/01/2022 3:38 PM EDT Molding Associate Encounter Note Patient Name: Alix Holland : [id number] MR#: [id number] Admit Date: 01/23/2022 12:29 AM Hospital Day [...] and left superior gluteal artery via R POLYTECHNIC REGISTRAR access. Reason for intervention: Follow up Nutrition [...] 02/05/2022 TRIG 359 01/26/2022 CRP <3.0 04/26/2021 [id number] 535 02/03/2022 25OHVITD 12 (L) 02/19/2022 SFOLATE [...] encounter: 82.1 kg (180 lb 14.4 oz). [place] Body Weight: 80.9kg- [place] Usual Body Weight: [...] Based on IBW 80.9kg Estimated needs: Calories: 3202-3635 (25-30kcal/kg) Protein: 120 grams (1.5 g/kg UBW) - pt on iHD w/ wound vacs Nutrition Focused Physical Exam (NFPE): Performed on 03/01/22. Subcutaneous fat loss at Orbital region: Moderate Upper arm region (triceps/biceps): Mild Thoracic and lumbar region (ribs, lower back and maxillary line): Not assessed Lean muscle loss to Mu-Ism region (temporalis muscle): Moderate Clavicle bone region [...] inpatient Thank you, KAYLAH JANG RD Pager #:[phone] Josh Peck RN - 03/01/2022 2:00 AM [...] PM EDT Hypertension/Nephrology Inpatient Follow-up Alix Holland [id number] 1990 ID: 31 y.o. old male seen [...] ??C (98.2 ??F) Oral 18 96 % 02/27/22 1951 (!) 150/108 -- -- -- 98 % [...] changed vitamin D3 400 U -> D2 13755 weekly for six weeks given his severe deficiency. Would recommend rechecking a level after this (likely after discharge). - Continue daily MV - Avoid NSAIDs, contrast, and other nephrotoxic agents as able - Agree with iron studies on 03/01 as he will likely need replacement This case was discussed with staff retail loss prevention investigator Dr. Thomas. We will sign off at this time. Please do not hesitate to contact me with questions or concerns: Ph [phone] Pg [phone]. Dominic Almanza MD Nephrology Fellow, [...] protein intake. Dania Thomas MD Nephrology Pager: [phone] Sixto Medina MD - 02/28/2022 10:28 AM EDT Acute Care Surgery Daily Progress Note Admission Date: 01/23/2022 ID: Alxi Holland is a 31 y.o. male [...] requires dialysis; they recommended starting weekly EPO 66411 units, given 02/25. PIV access unable to [...] PM EDT Hypertension/Nephrology Inpatient Follow-up Alix Holland [id number] 1990 ID: 31 y.o. old male seen [...] replacement This case was discussed with staff retail loss prevention investigator Dr. Thomas. We will follow peripherally at this time.Please do not hesitate to contact me with questions or concerns: Ph [phone] Pg [phone]. Dominic Almanza MD Nephrology Fellow, PGY-4 Associated attestation - Dania Thomas MD - 02/27/2022 5:33 PM EDT The patient was seen and examined with the nephrology fellow. Please see the nephrology fellow's note from today for details. I have reviewed the fellow's note and agree with the exam, and assessment and plan. Dania Thomas MD Nephrology Pager: [phone] Sixto Medina MD - 02/26/2022 3:14 PM [...] 2.39 (2.94), Nephrology following; Gave weekly EPO 89734 yesterday, start IV iron after completing Vancomycin [...] requires dialysis; they recommended starting weekly EPO 74454 units, given yesterday. Will obtain PIV access [...] Jareth Nino MD, MPH Section of Nephrology #[id number] Dania Cotter RN - 02/26/2022 10:02 AM EDT 0950 Patient admitted to PACU. Hand off received from Tamika WESTON, EXECUTIVE DIRECTOR GLOBAL BRAND MARKETING care assumed. Assessments as documented. Monitors on, alarms audible and individualized to patient. 1015 Hand off to ÁNGEL Ontiveros 4 [place] Glenna Bejarano OT - 02/26/2022 8:44 AM [...] reviewed with no apparent indication for urgent RN VISITING. Access: Can remove dialysis catheter. We are [...] Jareth Nino MD, MPH Section of Nephrology #[id number] Jaswinder Chung POWDER CORE TESTER - 02/25/2022 12:05 PM EDT Physical Therapy [...] IADLs, drives, used to work for a [employer] company but is not currently working. Enjoys [...] Therapy: 30 TE-F x 2 JASWINDER CHUNG, POWDER CORE TESTER 02/25/2022 Pager: [phone] Physical Therapy Inpatient Rehabilitation Department Sixto Medina [...] No recent imaging Assessment and Plan Alix oHlland is a 31 y.o. male [...] 1,000 mg 1,000 mg Oral Q8H [place] Elaine Dos Santos MD 1,000 mg at02/24/22 1408 Recent Results [...] GFR 28 (L) >=60 mL/min/1.73 m?? Vidhya Anabela #[id number] Associated attestation - Jareth Nino MD - [...] LUE ?? Social History: Patient lives in [place], [place] with his dad. Home Setup: [address], 2 level home, bedroom on 1st level, bathroom available on 1st level, has a tub shower downstairs. DME: none Baseline ADL/Mobility: Pt reports he was independent w/ ADL's and IADL's, had worked for a [employer]. He enjoys hunting and fishing. He reports he likes [employer] music ?? Interval History: - No acute [...] sidelying to sitting ?? Pt able to [facility] gown w good seated balance and min [...] gave pt built up utensils for better tile mechanic helper on utensils due to limited LUE strength [...] Occupational Therapy: 32 (1 SC 1 TAF ([phone])) Pager: [phone] Natalia Fong OT Occupational Therapy Rehabilitation Department *POC reviewed between PEG/OTR. Patient is now activity as tolerated with BUE/LE WBAT. See updated goals below. Dai Duarte OTR/L Pager [phone] Goals updated & extended to 03/08/22: -Patient [...] and left superior gluteal artery via R POLYTECHNIC REGISTRAR access. Reason for intervention: Follow up Nutrition [...] 02/05/2022 TRIG 359 01/26/2022 CRP <3.0 04/26/2021 [id number] 535 02/03/2022 SFOLATE 3.9 (L) 02/03/2022 IRON [...] encounter: 104.3 kg (229 lb 15 oz). [place] Body Weight: 80.9kg- [place] Usual Body Weight: [...] Based on IBW 80.9kg Estimated needs: Calories: 6501-8047 (25-30kcal/kg) Protein: 120 grams (1.5 g/kg UBW) [...] et al, JPEN J Parenteral Enteral Nutr. 2012 November; 36(3): 273-83) Nutrition to continue to follow up while inpatient Thank you, Charlotte Castañeda RD Pager #:[phone] Jaswinder Chung, POWDER CORE TESTER - 02/23/2022 11:00 AM EDT Physical Therapy Note Treatment Number PT: 2 Patient profile: Alix Holalnd is a 31 y.o.??gentleman admitted to the [...] Physical Therapy: 45 TE-F x 3 JASWINDER CHUNG, SVETLANA 02/23/2022 Pager: [phone] Physical Therapy Inpatient Rehabilitation Department Sixto Medina [...] 4.9 CL 102 101 101 CO2 24 23 26 BUN 59* 55* 46* CREATININE 3.90* [...] 02/21) - F/U ferritin level --- iHD Tues/Thurs/Sat, next session 02/25 Heme: - DVT ppx [...] MS4 02/24/2022 Acute Care Surgery Team pager [phone] A medical student assisted me in the [...] MD 02/22/2022 Acute Care Surgery Team pager [phone] Attending Addendum I have seen and examined [...] Acute Care Surgery Post-Operative Progress Note Alix Crookswell 02/22/2022 Surgery/Issue: Procedure(s): DEBRIDEMENT SKIN, SUBCU, MUSCLE, [...] Melissa Gonzales MD Acute Care Surgery Pager [phone] Kevon Brian MD - 02/22/2022 10:29 AM [...] SpO2: [94 %-100 %] Laboratory: Recent Labs 02/22/22 0108 02/21/22 0338 02/20/22 0445 WBC 8.9 8.9 9.7* HGB 7.3* 6.9* 7.2* HCT 22.7* 21.4* 22.2* PLATELET 317 273 312 Recent Labs 02/22/228 02/21/22 0338 02/20/22 0445 NA 137 136 136 K 5.1* 4.9 4.7 CL 101 101 99 CO2 23 27 BUN 55* 46* 35* CREATININE 3.91* [...] MD 02/21/2022 Acute Care Surgery Team pager [phone] Associated attestation - Gela Novak MD - [...] Resuscitation - Inpatient Alonzo Juan Adin, MS4 02/20/2022 Acute Care Surgery Team pager [phone] A medical student assisted me in the [...] day, Gina Montaño MD, 5,000 Units at 02/19/22 7454 ??? amLODIPine (Norvasc) tablet 5 mg, 5 [...] Melissa Gonzales MD Acute Care Surgery Pager [phone] Melissa Gonzales MD - 02/19/2022 2:52 PM [...] MD 02/19/2022 Acute Care Surgery Team pager [id number] Associated attestation - Gela Novak MD - [...] up at a later time for OT. T Collette Valente MD - 02/18/2022 11:55 PM [...] Dr. Betancourt. Collette Valente MD General Surgery T Bambi Pressley MD - 02/18/2022 7:37 PM [...] mL) subcutaneous injection 5,000 Units 5,000 Units WpchhlqqrlfpX2P [facility] Collette Dye MD 5,000 Units at 02/18/22 [...] 1-5 /HPF Stippled RBCs Present >1/HPF Vidhya Anabela #[id number] Dai Duarte, OT - 02/18/2022 2:48 PM [...] LUE ?? Social History: Patient lives in [place], [place] with his dad. Home Setup: [address] [facility], 2 level home, bedroom on 1st level, bathroom available on 1st level, has a tub shower downstairs. DME: none Baseline ADL/Mobility: Pt reports he was independent w/ ADL's and IADL's, had worked for a [employer]. He enjoys hunting and fishing. He reports he likes country music ?? Interval History: (Per MD note): NAEO Precautions/Special Considerations: SOAP/WATER; At risk to fall, flexiseal, L UE and L LE NWB; L forearm wound vac; TEACHER AIDE CLERICAL; Femoral A-line S: Ill try it I [...] Total Minutes, Occupational Therapy: 60 (tef x4 [phone]) Pager: [phone] AMA QURESHI, PEG Occupational Therapy Rehabilitation Department *POC reviewed between PEG/OTR. Patient is now activity as tolerated with BUE/LE WBAT. See updated goals below. Dai Duarte OTR/L Pager [phone] Goals updated & extended to 03/08/22: -Patient [...] MD 02/18/2022 Acute Care Surgery Team pager [phone] Associated attestation - Gela Novak MD - [...] ADLs]: Hands on Surveillance [continuous indirect monitoring]: Masnathanielo Patient-specific fall prevention interventions for sensory deficits [...] mL) subcutaneous injection 5,000 Units 5,000 Units DsojdrdjayvnX7H Collette Zacarias MD 5,000 Units at 02/17/22 [...] Moderate Neutrophils No microorganisms seen. Vidhya Peñaloza #[id number] Associated attestation - Bambi Pressley MD - [...] (such as coca cola and gold fish). Theyaldenve met with RD. I encouraged patient to [...] during conversation, follows commands Labs: Recent Labs 02/17/220 02/16/22 0405 02/15/22 0350 WBC 17.0* 19.0* 22.1* HGB 7.1* 7.3* 7.2* HCT 22.2* 22.3* 21.3* PLATELET 316 296 254 Recent Labs 02/17/2233902/16/22 0405 02/15/22 0350 NA 130* 128* 126* [...] MD 02/17/2022 Acute Care Surgery Team pager [phone] Associated attestation - Gela Novak MD - [...] Melissa Gonzales MD Acute Care Surgery Pager [phone] Tasha Matthews OTA - 02/17/2022 8:00 AM EDT 02/17/22 0800 Evaluation & Treatment Document Type contact Total Minutes, Occupational Therapy 0 Comment, Session Not Performed Chart reviewed. Pt in the OR. Will follow up post op. Vihdya Peñaloza MD - 02/16/2022 7:27 PM EDT [...] better. However, at this time, he needs RN VISITING. - Hemodynamically stable. PHYSICAL EXAM: Last value [...] Once Melissa Gonzales MD 33.3 mL/hr at 02/16/221809 1 g at 02/16/22 181 ??? heparin (porcine) (1,000 units/mL) injection 1,000-10,000 [...] Collette Dye MD 1 tablet at 02/16/22 0829 ??? heparin (porcine) (5,000 units/1 mL) subcutaneous injection 5,000 Units 5,000 Units MwlokvfpotdsE7F Collette Zacarias MD 5,000 Units at 02/16/22 [...] Oral BID Collette Dye MD2 tablet at 02/16/22 0829 ??? folic acid (Folvite) tablet 1,000 mcg [...] (H) 0.00 - 0.04 x10(3)/mcL Vidhya Peñaloza #[phone] Associated attestation - Bambi Pressley MD - [...] Intake/Output: 02/15 0701 - 02/16 0700 In: 1999 [P.O.:1500; I.V.:500] Out: 4880 [Urine:525] Physical Exam: [...] which he has been covered with by [employer] consulted 02/11. Zosyn discontinued and transitioned to [...] MD 02/16/2022 Acute Care Surgery Team pager [phone] Associated attestation - Gela Novak MD - [...] [id number] or miSecureMessages 02/16/22, 9:[address] - 02/16/2022 9:23 AM EDT Nutrition [...] and left superior gluteal artery via R POLYTECHNIC REGISTRAR access. Reason for intervention: Follow up Nutrition [...] 02/05/2022 TRIG 359 01/26/2022 CRP <3.0 04/26/2021 [id number] 535 02/03/2022 SFOLATE 3.9 (L) 02/03/2022 IRON [...] encounter: 104.3 kg (229 lb 15 oz). [place] Body Weight: 80.9kg- Hamwi Usual Body Weight: [...] Based on IBW 80.9kg Estimated needs: Calories: 5181-1788 (25-30kcal/kg) Protein: 120 grams (1.5 g/kg UBW) [...] up while inpatient KAYLAH JANG RD Pager #:[phone] Vidhya Peñaloza MD - 02/15/2022 6:47 PM [...] with PMHx drug abuse, initially admitted to [facility] [place] [place] after he had cardiac arrest sec to [...] mL) subcutaneous injection 5,000 Units 5,000 Units VxhlbgqoqiphZ9A [place] Veto Hidalgo MD 5,000 Units at 02/15/22 1629 ??? vancomycin (Vancocin) capsule 125 mg 125 mg Oral BID Veot Hidalgo MD 125 mg at 02/15/22 0735 [...] Veto Hidalgo MD 1,000 mcg at 02/15/22 162 ??? thiamine (Vitamin B1) tablet 100 mg 100 mg Oral Daily Veto Hidalgo MD 100 mg at 02/15/221621 ??? acetaminophen (Tylenol) tablet 1,000 mg 1,000 mg Oral Q8H [place] Veto Hidalgo MD 1,000 mg at 02/15/22 161 Recent Results (from the past 18 hour(s)) [...] Organism Gram Negative Rods (A) Vidhya Peñaloza #[id number] Associated attestation - Bambi Pressley MD - [...] Melissa Gonzales MD Acute Care Surgery Pager [phone] Melissa Gonzales MD - 02/15/2022 1:46 PM [...] MD 02/15/2022 Acute Care Surgery Team pager [phone] Associated attestation - Gela Novak MD - [...] in PACU. 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 Ama Tucker RN - 02/15/2022 4:50 AM [...] and anus. Patient voided 525 ml at 1920, PVR was 54. Wound vac dressing on [...] EDT Hypertension/Nephrology Staff Inpatient Follow-up Alix Holland [id number] 1990 ID: 31 y.o. old male seen [...] MD 02/14/2022 Acute Care Surgery Team pager [phone] Jairo Kirkland MD - 02/13/2022 4:06 PM [...] EDT Hypertension/Nephrology Staff Inpatient Follow-up Alix Holland [id number] 1990 ID: 31 y.o. old male seen [...] Estimate Normal RBC Morphology Abnormal Hypochromia Slight Glyndon Cells 1-5 /HPF Stippled RBCs Present >1/HPF Toxic Granulation Present A/P: 1. Renal: persistent anuric ALTHEA post rhabdo. Hyponatremia persists but chemistries otherwise stable. - no indication for RN VISITING today - 1.5L/d fluid restriction - avoid [...] MD 02/13/2022 Acute Care Surgery Team pager [phone] Vidhya Peñaloza MD - 02/12/2022 8:33 PM [...] mL) subcutaneous injection 5,000 Units 5,000 Units TnqcljmndajhW0L Kaitlyn Valladares MD 5,000 Units at 02/12/22 1340 ??? vancomycin (Vancocin) capsule 125 mg 125 mg Oral BID Kaitlyn Rock MD 125 mg at 02/12/22 2018 ??? lactulose (Chronulac) (0.67 gram/mL) oral liquid [...] tablet 1,000 mg 1,000 mg Oral Q8H Kaitlyn Valladares MD 1,000 mg at 02/12/22 1341 Recent Results (from the past 18 hour(s)) Sodium Collection Time: 02/12/22 9:16 AM Result Value Ref Range Sodium 125 (L) 135 - 145 mmol/L Prepare RBC Collection Time: 02/12/22 9:55 AM Result Value Ref Range Dispensed? Yes Sodium Collection Time: 02/12/22 4:45 PM Result Value Ref Range Sodium 128 (L) 135 - 145 mmol/L Vidhya Peñaloza [...] Plan to follow up next week. Meghan Prabhakar PT DPT Pager #[phone] 02/12/2022 Physical Therapy Rehabilitation Department Parrish Betancourt [...] MD 02/12/2022 Acute Care Surgery Team pager [phone] SURGICAL ATTENDING NOTE: Pt seen and examined [...] mL) subcutaneous injection 5,000 Units 5,000 Units VzrbunnnztnyI8A Kaitlyn Valladares MD 5,000 Units at 02/11/222118 ??? vancomycin (Vancocin) capsule 125 mg 125 mg Oral BID Kaitlyn Rock MD 125 mg at 02/11/222118 ??? lactulose (Chronulac) (0.67 gram/mL) oral liquid 20 g 20 g Oral BID PRN Kaitlyn Rokc MD ??? alteplase (Cathflo) injection 1-4 mg [...] tablet 1,000 mg 1,000 mg Oral Q8H [facility] Kaitlyn Rock MD 1,000 mg at 02/11/222118 [...] 6120 [P.O.:4850; I.V.:1009; Other:45; IV Piggyback:216] Out: 26827 [Other:36152; Stool:200] I/O this shift: In: 600 [P.O.:300; [...] pain controlled - hemodynamically stable Jose Guadalupe Olga Oksana 02/11/2022 Gina Montaño MD Acute Care Surgery Team Pager [phone] 02/11/22 Sg Parra RN - 02/11/2022 2:36 PM EDT OUTCOME EVALUATION NOTE: ?? OUTCOME SUMMARY: Pt alert and oriented x4. On room air, no SOB and dyspnea. 8/10 general pain, relief with TEACHER AIDE CLERICAL dilaudid and PRN oral oxycodone. Wound vac [...] MD 02/11/2022 Acute Care Surgery Team pager [phone] Tamika Burk RN - 02/11/2022 11:41 AM EDT Pt to PACU via bed from OR; monitors applied, alarms set and audible. Woke up well from Anesthesia; comfortable initially, then c/o LLE killing me. Pt given TEACHER AIDE CLERICAL, which he used independently. Given additional IV analgesic also. 1200: Pt given oral analgesic. Lunch ordered for room. Pt using cell phone to call family and girlfriend. Kaylah Jang, RD - 02/11/2022 11:30 AM EDT Nutrition [...] and left superior gluteal artery via R POLYTECHNIC REGISTRAR access. Interval hx: Pt continues NPO for [...] discuss plan with provider Kaylie Montaño MD #[id number]. Active Orders Diet Regular diet Frequency: Effective [...] 02/05/2022 TRIG 359 01/26/2022 CRP <3.0 04/26/2021 [id number] 535 02/03/2022 SFOLATE 3.9 (L) 02/03/2022 IRON [...] encounter: 104.3 kg (229 lb 15 oz). [place] Body Weight: 80.9kg- Hamwi Usual Body Weight: [...] Based on IBW 80.9kg Estimated needs: Calories: 9552-4590 (25-30kcal/kg) Protein: 200+ grams (2.5 g/kg) - [...] up while inpatient KAYLAH JANG RD Pager #:[phone] Tanesha Patel RN - 02/11/2022 6:00 AM EDT OUTCOME EVALUATION NOTE: ?? OUTCOME SUMMARY: Pt AOx4. 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 Q shift N/V checks, pulses dopplerable. Provider notified pt would need to disconnect from wound vacs for MRI, communication placed, ok to disconnect. NPO at midnight for washout of wounds. PLAN MOVING FORWARD: NPO at midnight for washout IHD MWF Q8 sodium levels TEACHER AIDE CLERICAL for pain Free water restriction 1L Vidhya Peñaloza MD - 02/10/2022 1:47 PM EDT NEPHROLOGY PROGRESS NOTE PATIENT: Alix Holland : 1990 Interval History: Patient seen and examined at bedside. On HD when seen. Tolerated HD well. I/O last 3 completed shifts: In: 6279 [P.O.:2030; I.V.:3362; Blood:350; Other:30; IV Piggyback:507] Out: 04934 [Other:40688; Stool:1025; Blood:20] I/O this shift: In: 2473 [...] mL) subcutaneous injection 5,000 Units 5,000 Units SrusnrhynsgkA5C [facility] Jeanette Escamilla ASSISTANT PROFESSOR OF SOCIOLOGY 5,000 Units at 02/10/22 1333 ??? vancomycin [...] mg/mL) in sodium chloride 0.9% 50 mL TEACHER AIDE CLERICAL infusion Intravenous TEACHER AIDE CLERICAL Only Jeanette Escamilla APRN 1 mL/hr at [...] Q1 Min PRN Jeanette Escamilla APRN ??? TEACHER AIDE CLERICAL hutton Intravenous Continuous PRN Jeanette Escamilla APRN ??? HYDROmorphone (mg) TEACHER AIDE CLERICAL shift total and Settings verification Intravenous 2 Times Daily- TEACHER AIDE CLERICAL Shift Total Jeanette Escamilla APRN ??? dronabinoL [...] tablet 1,000 mg 1,000 mg Oral Q8H [facility] Jeanette Escamilla APRN 1,000 mg at 02/10/22 [...] Abnormal Polychromasia Present >5/HPF Ovalocytes 1-5 /HPF Glyndon Cells 1-5 /HPF Stippled RBCs Present >1/HPF Dohle Bodies Present Giant Platelets Less than 1 /HPF Sodium Collection Time: 02/10/22 9:05 AM Result Value Ref Range Sodium 129 (L) 135 - 145 mmol/L Vidhya Peñaloza #[id number] Associated attestation - Cecilio Gee MD - [...] was initially admitted to MICU 01/23 at [facility] after he was found down following [...] 02/10 0700 In: 4038 [P.O.:1250; I.V.:2350] Out: 89250 Physical Exam: General: no distress, awake in [...] pressors.Pain better controlled with PO medications and TEACHER AIDE CLERICAL. Nephrology is amenable to iHD in place of [facility]. ID following regarding C. diff treatment. PLAN: Neuro:?Toxic metabolic encephalopathy, bilateral globus pallidum infarcts, hx polysubstance abusewith difficult to control pain - Pain control: acetaminophen, Dilaudid TEACHER AIDE CLERICAL, oxycodone PRN, Dilaudid breakthrough - Marinol 10mg [...] MD, PGY2 Acute Care Surgery Team pager [phone] Jose Hernandez MD - 02/10/2022 12:47 PM [...] closure 01/29/22 (Dr. Valdovinos), I&D 01/31/22 (Dr. Barnch) ??? Severe protein-calorie malnutrition ??? Transaminitis ??? [...] mg/mL) in sodium chloride 0.9% 50 mL TEACHER AIDE CLERICAL infusion ??? diphenhydrAMINE (Benadryl) (50 mg/mL) injection 25 mg ??? prochlorperazine (Compazine) (5 mg/mL) injection 5 mg ??? ondansetron (pf) (Zofran) (2 mg/mL) injection 4 mg ??? naloxone (Narcan) (0.4 mg/mL) injection 0.2 mg ??? TEACHER AIDE CLERICAL hutton ??? HYDROmorphone (mg) TEACHER AIDE CLERICAL shift total and Settings verification ??? dronabinoL [...] per 24 hour Intake 4838 ml Output 70090 ml Net -9966 ml Body mass index [...] any changes, questions, or concerns please page [phone]. Activity: NWB LUE, NWB LLE DVT prophylaxis: [...] OUTCOME SUMMARY: Pt A&Ox4, but lethargic, c/o 7-10/10 pain. PRN Oxycodone added with improved pain [...] EDT Hypertension/Nephrology Staff Inpatient Follow-up Alix Holland [id number] 1990 ID: 31 y.o. old male seen [...] the MICU 01/23 s/p [place] arrest at [facility] in the setting ofbeing down for [...] slow to respond but appropriate, GCS 15 () ?? Labs: Lab Results Component Value Date Sodium 132 (L) 02/09/2022 Potassium 4.2 02/09/2022 Chloride 95 (L) 02/09/2022 CO2 22 02/09/2022 BUN 26 (H) 02/09/2022 Creatinine 2.46 (H) 02/09/2022 Glucose Lvl 128 02/09/2022 CBC Recent Labs 02/09/22 0055 02/08/22 1800 02/08/22 0100 02/07/22 1805 02/07/22 1300 02/07/22 0605 02/07/22 0210 02/06/22 19402/06/22 1620 WBC 12.6* 12.1* 18.6* 18.0* 20.2* [...] control pain - pain control: acetaminophen, D. TEACHER AIDE CLERICAL - PRN Dilaudid for breakthrough pain, start [...] debride ment.?? Social History: Patient lives in [place], [place] with his dad. Home Setup: [address] [facility], 2 level home, bedroom on 1st level, bathroom available on 1st level, has a tub shower downstairs. DME: none Baseline ADL/Mobility: Pt reports he was independent w/ ADL's and IADL's, had worked for a [employer] company. He enjoys hunting and fishing. He reports he likes country music ?? Precautions/Special Considerations: SOAP/WATER; At risk to fall, flexiseal, L UE and L LE NWB; L forearm wound vac; NPO, Bedrest; TEACHER AIDE CLERICAL; Femoral A-line S: My leg really hurts [...] to participate ?? Alert and oriented to: [facility] [place] [place], January,. When asked the day of the [...] See PT note Pain: 8/10 to LLE; TEACHER AIDE CLERICAL in place Education: Pt/family/caregiver education ongoing regarding: [...] Total Minutes, Occupational Therapy: 34 (10:34-11:08) Pager: [phone] DAI DUARTE OT Occupational Therapy Rehabilitation Department [...] IADLs, drives, used to work for a [employer] company but is not currently working. Enjoys [...] therapy and demonstrated the following: ?? Pain: /, L LE ? Vital Signs: HR 98bpm, [...] (PT): 2-4 times/wk Time IN / OUT: 6129-3177 Total Minutes, Physical Therapy: 31 (TEFx2). Meghan Prabhakar PT DPT 02/09/2022 Pager: [phone] Physical Therapy Inpatient Rehabilitation Department Carlo Jackson [...] and left superior gluteal artery via R POLYTECHNIC REGISTRAR access. Interval hx: Pt continues NPO for OR today. Team hopeful to advance diet after OR. Reason for intervention: Malnutrition evaluation and TPN Nutrition Recommendations: ADAT and encourage good intake. Pt with high protein needs- please encourage intake of eggs, nuts, meats, danish yogurt, fish, and Ensure Enlive. Please order [...] 02/05/2022 TRIG 359 01/26/2022 CRP <3.0 04/26/2021 [id number] 535 02/03/2022 SFOLATE 3.9 (L) 02/03/2022 IRON [...] encounter: 111.7 kg (246 lb 4.1 oz). [place] Body Weight: 80.9kg- [place] Usual Body Weight: [...] Based on IBW 80.9kg Estimated needs: Calories: 0374-2361 (25-30kcal/kg) Protein: 200+ grams (2.5 g/kg) - [...] up while inpatient Carlo Jackson RD Pager #:[phone] Collette Dye MD - 02/09/2022 9:03 AM [...] was initially admitted to MICU 01/23 at [facility] after he was found down following [...] was upgraded to the SICU theevening of 7/8 after his left thigh wound vac filled [...] 1805 02/07/22 1300 02/07/22 0605 02/07/22 0210 02/06/22231002/06/22 2220 02/06/22194402/06/22 1633 WBC 12.6* 12.1* 18.6* 18.0* 20.2* [...] 02/07/22 18002/07/22 1300 02/07/22 0605 02/07/22 0047 02/06/22231002/06/22194402/06/22 1620 NA 130* 126* 129* 127* 126* [...] diff screen (02/01): Positive Abscess/Wound Aspirate Culture [[id number]] (Abnormal) Collected: 02/08/221612 Lab Status: Preliminary result Specimen: Deep Wound from Thigh, Left Updated: 02/08/221717 Gram Stain --??Abnormal?? Many Neutrophils seen Moderate Gram Negative Rods seen ??Abnormal?? Abscess/Wound Aspirate Culture [[id number]] (Abnormal) Collected: 02/08/221612 Lab Status: Preliminary result [...] any questions regarding this consult, please page [phone] if you have any further questions. [X] Consult service to continue to follow [] Consult service to sign off Collette Dye MD, PGY2 Acute Care Surgery Team pager [phone] Bam Bahena - 02/09/2022 7:35 AM EDT [...] to the MICU 01/23??s/p [place] arrest at [facility] in the setting of being down [...] Neurology - Pain control: ?? acetaminophen, D. TEACHER AIDE CLERICAL ?? PRN Dilaudid for breakthrough pain ?? [...] Cardiopulmonary Resuscitation - Inpatient Bam Bahena MS4 02/09/2022 Jorge Luis Reynoso MD - 02/09/2022 7:23 AM EDT Plastic Surgery Inpatient Progress Note (Team Pager #[phone]) Date of surgery: N/A CC/Procedure(s): N/A Surgeon: [...] Intake/Output Summary (Last 24 hours) at 02/09/2022 07 Last data filed at 02/09/2022 0600 Gross [...] Reynoso MD Plastic Surgery Inpatient Team Pager #[phone] Jesús Mcgowan PA - 02/09/2022 6:06 AM [...] of Left superior gluteal artery via R POLYTECHNIC REGISTRAR access. Last Value 24 Hour Range Temperature 37.5 ??C (99.5 ??F) Temp: [36.2 ??C (97.2 ??F)-37.9 ??C (100.2 ??F)] Heart Rate (!) 115 Heart Rate: [85-138] Blood Pressure 142/75 BP: -- Respiratory Rate 26 Resp: [12-29] SpO2 100 % SpO2: [96 %-100 %] Physical Exam GEN No distress, A&O CARDS Acyanotic, Right POLYTECHNIC REGISTRAR without hematoma/induration, right DP 2+ LUNGS Non-labored [...] /HPF Polychromasia Present >5/HPF Ovalocytes 1-5 /HPF Glyndon Cells 1-5 /HPF Stippled RBCs Present >1/HPF [...] Value Ref Range T&S only valid at [facility] [place] [place] Hosp Assessment: 31 y.o. male with history [...] and left superior gluteal artery via R POLYTECHNIC REGISTRAR access. Last transfusion of 1 unit PRBC [...] updated and patient is medically appropriate. Pager: [phone] Amberly Hardy OT 02/08/2022 Occupational Therapy Rehabilitation [...] 17 g 17 g Oral BID Rogers Solano APRN ??? heparin (porcine) (5,000 units/1 mL) subcutaneous injection 7,500 Units 7,500 Units WhxbvuwqyruoX8R [place] Rogers Solano, ASSISTANT PROFESSOR OF SOCIOLOGY ??? alteplase (Cathflo) injection 1-4 mg 1-4 mL INTRA-CATHETER Once in dialysis PRN Collette Rivas PA 2.4 mg at 02/07/22 0520 ??? heparin (porcine) (1,000 units/mL) injection 1,000-10,000 Units 1,000-10,000 Units NuxklnrzvnookE1Y PRN Angelina Reynoso MD ??? bicarbonate CRRT [...] 0.2 mg Intravenous Q2H PRN Rogers Solano, ASSISTANT PROFESSOR OF SOCIOLOGY ??? HYDROmorphone (Dilaudid) (1 mg/mL) in sodium chloride 0.9% 50 mL TEACHER AIDE CLERICAL infusion Intravenous TEACHER AIDE CLERICAL Only Rogers Solano, ASSISTANT PROFESSOR OF SOCIOLOGY 1 mL/hr at 02/07/22 1534 50 mg [...] Q1 Min PRN Danielle Ramirez MD ??? TEACHER AIDE CLERICAL hutton Intravenous Continuous PRN Danielle Ramirez MD ??? HYDROmorphone (mg) TEACHER AIDE CLERICAL shift total and Settings verification Intravenous 2 Times Daily- TEACHER AIDE CLERICAL Shift Total Danielle Ramirez MD ??? vancomycin [...] Daily Danielle Ramirez MD 100 mg at 835 ??? acetaminophen (Tylenol) tablet 1,000 mg 1,000 [...] bolus injection (Anesthesia) Intravenous PRN Anthony Turner EXECUTIVE DIRECTOR GLOBAL BRAND MARKETING 10 mg at 02/06/22 1420 ??? lactated ringers infusion Intravenous Continuous PRN Anthony Turner CRNA New Bag at 02/06/22 1239 ??? PHENYLephrine (Rustam-Synephrine) (80 mcg/mL) in sodium chloride 0.9% 250 mL infusion Intravenous Continuous PRN Anthony Turner EXECUTIVE DIRECTOR GLOBAL BRAND MARKETING 15 mL/hr at 02/06/22 1433 20 mcg/min at 02/06/22 1433 ??? HYDROmorphone (Dilaudid) (2 mg/mL) multi-dose injection solution Intravenous PRN Anthony Turner EXECUTIVE DIRECTOR GLOBAL BRAND MARKETING 1 mg at 02/06/22 1439 Recent Results [...] Abnormal Polychromasia Present >5/HPF Ovalocytes 1-5 /HPF Glyndon Cells 1-5 /HPF Toxic Granulation Present BLOOD [...] 126 65 - 199 mg/dL Vidhya Peñaloza #[phone] Associated attestation - Cecilio Gee MD - [...] the MICU 01/23 s/p [place] arrest at [facility] in the setting ofbeing down for [...] control pain - pain control: acetaminophen, D. TEACHER AIDE CLERICAL - PRN Dilaudid for breakthrough pain - [...] procedural time. Jayme Armstrong MD 02/08/2022 Kristan Rodríguez, PT - 02/08/2022 11:11 AM EDT Images from the original note were not included. 02/08/22 1111 Evaluation & Treatment Document Type contact Total Minutes, Physical Therapy 0 Comment, Session Not Performed Patient currently in the OR for LLE I&D. He continues to have bedrest orders at this time. PT following; will resume when ready. LILO CoulterT Board-Certified Clinical Specialist in Geriatric Physical Therapy Board-Certified Clinical Specialist in Neurologic Physical Therapy Inpatient/outpatient Rehab [facility] Parrish Betancourt MD - 02/08/2022 [...] was initially admitted to MICU 01/23 at [facility] after he was found down following [...] 18002/07/22 1300 02/07/22 0605 02/07/22 0210 02/06/22 23102/06/22 2220 02/06/22 19402/06/22 1633 02/06/22 1620 WBC [...] 02/07/22 18002/07/22 1300 02/07/22 0605 02/07/22 0047 02/06/22231002/06/22 19402/06/22 1620 02/06/22 1130 02/06/22 0900 02/06/22 0740 [...] any questions regarding this consult, please page [phone] if you have any further questions. [X] Consult service to continue to follow [] Consult service to sign off Collette Dye MD, PGY2 Acute Care Surgery Team pager [phone] SURGICAL ATTENDING NOTE: Pt seen and examined [...] Vinod Prasad PA-C Interventional Radiology IR Provider #[id number] Bam Bahena - 02/08/2022 7:31 AM EDT [...] to the MICU 01/23??s/p [place] arrest at [facility] in the setting of being down [...] HD line rewired after TPA failed. Increased TEACHER AIDE CLERICAL then went down on it. 2 units [...] (NBP): -- Respiratory Rate Resp: 17 Resp: [12-] SpO2 SpO2: 100 % SpO2: [92 %-100 [...] difficult to control pain - Acetaminophen, D. TEACHER AIDE CLERICAL - PRN Dilaudid for breakthrough pain - [...] mg/mL) in sodium chloride 0.9% 50 mL TEACHER AIDE CLERICAL infusion ??? heparin (porcine) (1,000 units/mL) injection [...] (Narcan) (0.4 mg/mL) injection 0.2 mg ??? TEACHER AIDE CLERICAL hutton ??? HYDROmorphone (mg) TEACHER AIDE CLERICAL shift total and Settings verification ??? vancomycin [...] Garcia MD Department of Orthopaedics 02/08/22 Woodrow Foster, RN - 02/08/2022 3:07 AM EDT 0200- CRRT machine clotted off. Partial return of blood. 0245- Restart CRRT. 0300- Discussed with , Hgb of 7.3. Informed we will hold off on blood products at this time. Patient tolerating CRRT, no c/o pain at this time. He is using his TEACHER AIDE CLERICAL as demonstrated. Natalya Amador RN - 02/07/2022 6:48 PM EDT OUTCOME EVALUATION NOTE: OUTCOME SUMMARY: Pt stated increased pain this am, and received Dilaudid 0.2 mg for BTP, and increase on TEACHER AIDE CLERICAL, statingpain 10/10 to the left hip. With the one IV dose of Dilaudid and increase pt stated better pain, andwas unable to verbalize a number, staring out into space or closing eyes during a conversation,. Pt's TEACHER AIDE CLERICAL was then decreased and during the decrease [...] mg/mL) in sodium chloride 0.9% 50 mL TEACHER AIDE CLERICAL infusion ??? heparin (porcine) (1,000 units/mL) injection 1,000-10,000 Units ??? bicarbonate CRRT (NxSTAGE) 3 mEq/L K+, 3 mEq/L Ca++, 5,000 mL Solution 5 each ??? calcium gluconate 15 g in sodium chloride 0.9% 250 mL infusion ??? sodium phosphate (0.1 mMol/mL) in sodium chloride 0.9 % 150 mL infusion (CRRT) ??? heparin (porcine) (1,000 units/mL) injection 1,000-10,000 Units ??? epoetin salnia-epbx (Retacrit) injection 12,000 Units ??? NORepinephrine (Levophed) (16 mcg/mL) in dextrose 5% 250 mL infusion ??? dextrose 5% infusion ??? diphenhydrAMINE (Benadryl) (50 mg/mL) injection 25 mg ??? prochlorperazine (Compazine) (5 mg/mL) injection 5 mg ??? ondansetron (pf) (Zofran) (2 mg/mL) injection 4 mg ??? naloxone (Narcan) (0.4 mg/mL) injection 0.2 mg ??? TEACHER AIDE CLERICAL [place] ??? HYDROmorphone (mg) TEACHER AIDE CLERICAL shift total and Settings verification ??? vancomycin [...] (02/06/22 1153) ??? dextrose 5% Stopped (02/07/22 2029) OBJECTIVE: Temp: [36.3 ??C (97.3 ??F)-37.3 ??C [...] was initially admitted to MICU 01/23 at [facility] after he was found down following [...] 95 % SpO2: [91 %-100 %] 02/06 0701 - 07/10 0700 In: 7473.8 [P.O.:730; I.V.:4980] Out: 2885 [...] any questions regarding this consult, please page [phone] if you have any further questions. [X] Consult service to continue to follow [] Consult service to sign off Kaitlyn Rock MD, PGY2 Acute Care Surgery Team pager [phone] Garret Jeter DO - 02/07/2022 10:10 AM EDT INTERVENTIONAL RADIOLOGY [...] bowel tones EXT Minimal oozing around R POLYTECHNIC REGISTRAR puncture site dressing, no hematoma. Distal pulses [...] any questions or concerns. Garret Jeter DO [facility] [place] [place] Interventional Radiology Jayme Armstrong MD - 02/07/2022 [...] the MICU 01/23 s/p VT arrest at [facility] in the setting ofbeing down for [...] control pain - pain control: acetaminophen, D. TEACHER AIDE CLERICAL - PRN Dilaudid for breakthrough pain - [...] 10/10 through most of the night, dilaudid TEACHER AIDE CLERICAL continues with PRN pushes for break through [...] dressing change, manage bleeding L thigh fasciotomy [id number], medicated with Hydromorphone 1 mg by Jeanette [...] the MICU 01/23 s/p VT arrest at [facility] in the setting ofbeing down for [...] Recent Labs 02/06/22 0935 02/06/22 0616 02/06/22 00502/05/225 01/31/22 0805 01/30/222016 PT 11.4 11.6 14.6* [...] control pain - pain control: acetaminophen, D. TEACHER AIDE CLERICAL ?? 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 Jayme Armstrong MD Jeanette Escamilla, KATERYNA - 02/06/2022 10:40 AM EDT ICU Transfer Note DOA: 01/23/2022 Diet: High Protein - High Calorie diet Code: Attempt Cardiopulmonary Resuscitation - Inpatient Room: 15/IC15-A ID: Alix Holland ( ) is a [...] down-time, complaining of LUE pain. On-route to [facility] via EMS had a Vtach arrest. On arrival to OSH he was noted to have potassium of 7.8. He received multiple doses of sodium bicarb, calcium gluconate, and insulin/D10 and his potassium improved to 5.4 prior to transport. On arrival to [facility] [place] [place] K was again elevated at 7.6 with [...] Found to be COVID-positive. After arrival to [facility] [place] [place] pt was able to be weaned to minimal oxygenation support and CT chest was clear apart from partial collapse of LLL and dependent atelectasis. COVID therapies such as decadron were held due to preserved oxygenation. He did remain intubated through 01/26, not because of hypoxia, but to facilitate return OR trips and during a time of hemodynamic instability. ?? ALTHEA requiring RN VISITING: Given his multisystem organ failure and significant [...] 01/30. He was transitioned to a hydromorphone TEACHER AIDE CLERICAL on 02/01. ?? C Difficile infection: Persistent [...] Neurology - Pain control: ?? acetaminophen, D. TEACHER AIDE CLERICAL ?? PRN Dilaudid for breakthrough pain ?? [...] of his gluteus. 1 square dressing of Shanks was placed at this aspect. 3 square [...] and set appropriately. Frequent visual assessments Surveillance: [facility] Critical Care Monitor Patient-specific fall prevention interventions [...] mg/mL) in sodium chloride 0.9% 50 mL TEACHER AIDE CLERICAL infusion ??? HYDROmorphone (Dilaudid) (1 mg/mL) injection syringe 1 mg ??? sevelamer carbonate (Renvela) tablet 1,600 mg ??? diphenhydrAMINE (Benadryl) (50 mg/mL) injection 25 mg ??? prochlorperazine (Compazine) (5 mg/mL) injection 5 mg ??? ondansetron (pf) (Zofran) (2 mg/mL) injection 4 mg ??? naloxone (Narcan) (0.4 mg/mL) injection 0.2 mg ??? TEACHER AIDE CLERICAL [place] ??? HYDROmorphone (mg) TEACHER AIDE CLERICAL shift total and Settings verification ??? vancomycin [...] EDT NEPHROLOGY PROGRESS NOTE Reason for consult: ALTHEA/RN VISITING Baseline creatinine: ~0.7 (as of 04/2021) Interval [...] tissue necrosis. Dania Thomas MD Nephrology Pager: [phone] Summer Robertson RN - 02/05/2022 3:35 PM [...] or concerns. Lilibeth Medina, PT, DPT Pager: [phone] 02/05/22 Inpatient Rehabilitation Department Amberly Hardy OT [...] evaluation as able and when appropriate. Pager: [phone] Amberly Hardy OT 02/05/2022 Occupational Therapy Rehabilitation [...] bridge Communicated nutrition recs to Medicine pager #[phone] Visualized patient for overt cachectic appearance: no [...] d/t fluid status Charlotte Castañeda RD Pager: [phone] Dilcia Lopez MD - 02/05/2022 9:56 AM [...] the past 24 hour(s)) GC Gene Amp ([facility] [place] [place]/CGP/APD/[facility]) Urine Specimen: Urine Result Value Ref Range GC Gene Amp Negative Negative GC Source Urine Chlamydia Gene Amp ([facility] [place] [place]/CGP/APD/NL) Urine Specimen: Urine Result Value Ref Range [...] Value Ref Range T&S only valid at [facility] [place] [place] Hosp Prepare RBC Result Value Ref Range Dispensed? Yes Hemoglobin Result Value Ref Range Hemoglobin 7.0 (L) 13.7 - 16.5 g/dL Microbiology: Microbiology Results (Last 30 days) Procedure Component Value Units Date/Time GC Gene Amp ([facility] [place] [place]/CGP/APD/[facility]) Urine [[id number]] Collected: 02/04/221619 Lab Status: Final result Specimen: Urine Updated: 02/05/22 0642 GC Gene Amp Negative Comment: The only FDA approved specimen types for this assay are cervical, vaginal, urethral and urine. Non-FDA approved sources are eye, throat and rectal and have been internally validated. GC Source Urine Chlamydia Gene Amp ([facility] [place] [place]/CGP/APD/NL) Urine [[id number]] Collected: 02/04/22 162 Lab Status: Final result Specimen: Urine Updated: 02/05/22 0642 Chlamydia Gene Amp Negative Comment: The only FDA approved specimen types for this assay are cervical, vaginal, urethral and urine. Non-FDA approved sources are eye, throat and rectal and have been internally validated. Chlamydia Source Urine C. Difficile Screen [[id number]] (Abnormal) Collected: 02/01/22 1355 Lab Status: Final [...] or approval by Infection Prevention. Blood culture [[id number]] Collected: 02/01/22 0635 Lab Status: Preliminary result Specimen: Blood Updated: 02/04/22 1502 Blood Culture No growth at 3 days. Blood culture [[id number]] Collected: 02/01/22 0625 Lab Status: Preliminary result Specimen: Blood Pediatric Updated: 02/04/22 1502 Blood Culture No growth at 3 days. Blood culture [[id number]] Collected: 01/28/22 0345 Lab Status: Final result Specimen: Blood Updated: 02/02/22 0701 Blood Culture No growth at 5 days. MRSA PCR [[id number]] Collected: 01/24/22 1310 Lab Status: Final result [...] of this test was determined by the [facility] [place] [place] Molecular Pathology Laboratory. It has been cleared by the U.S. Food and Drug Administration for clinical use. Comment: [VERIFIED DATE]01.25.22 Verified By:Alfonso Soto (Electronic Signature) MRSA PCR [[id number]] Collected: 01/23/22 1247 Lab Status: Final result [...] of this test was determined by the [facility] [place] [place] Molecular Pathology Laboratory. It has been cleared by the U.S. Food and Drug Administration for clinical use. Comment: [VERIFIED DATE]01.25.22 Verified By:Nora Shay (Electronic Signature) Lower Respiratory Culture Tracheal Aspirate [[id number]] (Abnormal) (Susceptibility) Collected: 01/23/22 1150 Lab Status: [...] Sensitive [1] Gentamicin is not appropriate for [place]-therapy. [2] Oxacillin (methicillin) susceptibility is a surrogate for the oral and parenteral cephalosporins, beta-lactam combination agents (amoxicillin-clavulanate, ampicillin-sulbactam and piperacillin-tazobactam) and carbapenem agents. It is NOT a surrogate for penicillin, ampicillin or piperacillin susceptibility. Linear View Blood culture [[id number]] Collected: 01/23/22 0600 Lab Status: Final result Specimen: Blood Updated: 01/28/22 0701 Blood Culture No growth at 5 days. Blood culture [[id number]] Collected: 01/23/22 0126 Lab Status: Final result Specimen: Blood Updated: 01/28/22 0701 Blood Culture No growth at 5 days. COVID-19 PCR [[id number]] (Abnormal) Collected: 01/23/22 0044 Lab Status: Final [...] diagnosis of COVID-19 is performed using the [employer] [employer] m SARS-CoV-2 Assay as authorized by the FDA Emergency Use Authorization (EUA). This EUA assay is intended for In-vitro Diagnostic (IVD) use with respiratory specimens such as nasopharyngeal swabs collected from individuals during the acute phase of infection. This assay is performed based on the instructions for use provided by [employer]. and additional guidance provided by CDC and FDA. Testing is performed in the [facility] within the Department of Pathology and Laboratory Medicine at [facility], certified under the Clinical Laboratory Improvement Amendments [...] fact sheets at the following FDA website: https://www.fda.gov/medical-devices/iotwsxywzbq-pwtrvnj-4529-cfmft-13-zxmhjufjq- ohj-plqoqcwfwcbnmy-nrrsgbl-devices/kxbge-oiaweogiivk-kbkz SARS-Cov-2 RNA Source Trach Asp MRSA PCR [[id number]] Collected: 01/23/22 0044 Lab Status: Final result [...] of this test was determined by the [facility] [place] [place] Molecular Pathology Laboratory. It has been cleared [...] who have questions please contact the health administrator health care facility that requested your imaging first. Electronically signed by: Sona Haji MD, [facility] ([phone]), at 01/23/2022 2:[address] Head wo Contrast (Generic) (Exam End: 01/23/2022 3:58 AM) Impression Globi pallidi infarcts. Mild cerebral edema. Thank you for letting us participate in the care of this patient. If you are a health care provider and have any questions regarding this report, please contact the number below. For patients who have questions please contact the health administrator health care facility that requested your imaging first. Electronically signed by: Rex Addison MD, [facility] ([phone]), at 01/23/2022 4:27 AM XR Abdomen 1 [...] who have questions please contact the health administrator health care facility that requested your imaging first. Electronically signed by: Jacky Mello MD, [facility] ([phone]), at 01/23/2022 8:[address] Lower Extremity [...] who have questions please contact the health administrator health care facility that requested your imaging first. Electronically signed by: Melita Mills MD, [facility] ([phone]), at 01/24/2022 1:[address] Chest wo [...] who have questions please contact the health administrator health care facility that requested your imaging first. Electronically signed by: Rex Addison MD, [facility] ([phone]), at 01/23/2022 4:[address] Upper Extremity [...] who have questions please contact the health administrator health care facility that requested your imaging first. Electronically signed by: Rex Addison MD, [facility] ([phone]), at 01/23/2022 4:58 AM XR Forearm Left [...] who have questions please contact the health administrator health care facility that requested your imaging first. Electronically signed by: Rex Addison MD, [facility] ([phone]), at 01/23/2022 7:14 AM XR Chest One [...] who have questions please contact the health administrator health care facility that requested your imaging first. Electronically signed by: Rex Addison MD, [facility] ([phone]), at 01/23/2022 6:56 AM XR Femur 2 views Left (Generic) (Exam End: 01/23/2022 2:04 PM) Impression No significant osseous finding. Thank you for letting us participate in the care of this patient. If you are a health care provider and have any questions regarding this report, please contact the number below. For patients who have questions please contact the health administrator health care facility that requested your imaging first. Electronically signed by: Lisandro Pruett MD, [facility] ([phone]), at 01/23/2022 2:10 PM XR Tibia Fibula Left (Generic) (Exam End: 01/23/2022 2:04 PM) Impression No bony abnormality seen. Thank you for letting us participate in the care of this patient. If you are a health care provider and have any questions regarding this report, please contact the number below. For patients who have questions please contact the health administrator health care facility that requested your imaging first. Electronically signed by: Jacky Mello MD, [facility] ([phone]), at 01/23/2022 2:07 PM XR Chest One [...] who have questions please contact the health administrator health care facility that requested your imaging first. Electronically signed by: Lisandro Pruett MD, [facility] ([phone]), at 01/23/2022 5:01 PM MRI Brain wo [...] who have questions please contact the health administrator health care facility that requested your imaging first. Electronically signed by: Bernadine Edward [facility] ([phone]), at 01/24/2022 4:[address] Angiogram [place] (Exam End: 01/24/2022 11:32 PM) Impression Normal appearance of the large and medium size arteries of the head and neck Thank you for letting us participate in the care of this patient. If you are a health care provider and have any questions regarding this report, please contact the number below. For patients who have questions please contact the health administrator health care facility that requested your imaging first. Electronically signed by: Arun Helm MD, [facility] ([phone]), at 01/25/2022 10:[address] Angiogram Carotids (Exam End: 01/24/2022 11:32 PM) Impression Normal appearance of the large and medium size arteries of the head and neck Thank you for letting us participate in the care of this patient. If you are a health care provider and have any questions regarding this report, please contact the number below. For patients who have questions please contact the health administrator health care facility that requested your imaging first. Electronically signed by: Arun Helm MD, [facility] ([phone]), at 01/25/2022 10:[address] Chest Abdomen Pelvis w Contrast (Generic) (Exam [...] who have questions please contact the health administrator health care facility that requested your imaging first. Electronically signed by: Melita Mills MD, [facility] ([phone]), at 01/30/2022 3:20 PM Assessment: Alix Holland??is [...] to this Complex pain needs - adjusted TEACHER AIDE CLERICAL yesterday with improvement Leukocytosis now down-trending with [...] and restarted precautions ?? # ALTHEA requiring RN VISITING; now on iHD # Hyponatremia (volume overloaded, not eating) # Hyperkalemia - Nephrology following - 1.5L fluid restriction in place ?? # Pain Control, c/b Chronic Opiate Abuse - adjusted TEACHER AIDE CLERICAL - consider subboxone/BIT once more stable ad [...] mg/mL) in sodium chloride 0.9% 50 mL TEACHER AIDE CLERICAL infusion ??? HYDROmorphone (Dilaudid) (1 mg/mL) injection syringe 1 mg ??? sevelamer carbonate (Renvela) tablet 1,600 mg ??? diphenhydrAMINE (Benadryl) (50 mg/mL) injection 25 mg ??? prochlorperazine (Compazine) (5 mg/mL) injection 5 mg ??? ondansetron (pf) (Zofran) (2 mg/mL) injection 4 mg ??? naloxone (Narcan) (0.4 mg/mL) injection 0.2 mg ??? TEACHER AIDE CLERICAL [place] ??? HYDROmorphone (mg) TEACHER AIDE CLERICAL shift total and Settings verification ??? vancomycin [...] above. Active Hospital Problems Diagnosis ? ? LIZE, SHAMAR compartment syndrome s/p fasciotimies, I&D 01/23/22, [...] mg/mL) in sodium chloride 0.9% 50 mL TEACHER AIDE CLERICAL infusion ??? HYDROmorphone (Dilaudid) (1 mg/mL) injection syringe 1 mg ??? sevelamer carbonate (Renvela) tablet 1,600 mg ??? diphenhydrAMINE (Benadryl) (50 mg/mL) injection 25 mg ??? prochlorperazine (Compazine) (5 mg/mL) injection 5 mg ??? ondansetron (pf) (Zofran) (2 mg/mL) injection 4 mg ??? naloxone (Narcan) (0.4 mg/mL) injection 0.2 mg ??? TEACHER AIDE CLERICAL [place] ??? HYDROmorphone (mg) TEACHER AIDE CLERICAL shift total and Settings verification ??? vancomycin [...] in the left wrist, less somnolent Changed TEACHER AIDE CLERICAL 4 hour limit and increased dose from [...] Component Value Units Date/Time C. Difficile Screen [[id number]] (Abnormal) Collected: 02/01/22 7234 Lab Status: Final result Specimen: Stool Updated: [...] or approval by Infection Prevention. Blood culture [[id number]] Collected: 02/01/22 0635 Lab Status: Preliminary result Specimen: Blood Updated: 02/04/22 1502 Blood Culture No growth at 3 days. Blood culture [[id number]] Collected: 02/01/22 0625 Lab Status: Preliminary result Specimen: Blood Pediatric Updated: 02/04/22 1502 Blood Culture No growth at 3 days. Blood culture [[id number]] Collected: 01/28/22 0345 Lab Status: Final result Specimen: Blood Updated: 02/02/22 0701 Blood Culture No growth at 5 days. MRSA PCR [[id number]] Collected: 01/24/22 1310 Lab Status: Final result [...] of this test was determined by the [facility] [place] [place] Molecular Pathology Laboratory. It has been cleared by the U.S. Food and Drug Administration for clinical use. Comment: [VERIFIED DATE]01.25.22 Verified By:Alfonso Soto (Electronic Signature) MRSA PCR [[id number]] Collected: 01/23/22 1247 Lab Status: Final result [...] of this test was determined by the [facility] [place] [place] Molecular Pathology Laboratory. It has been cleared by the U.S. Food and Drug Administration for clinical use. Comment: [VERIFIED DATE]01.25.22 Verified By:Nora Shay (Electronic Signature) Lower Respiratory Culture Tracheal Aspirate [[id number]] (Abnormal) (Susceptibility) Collected: 01/23/22 1150 Lab Status: [...] Sensitive [1] Gentamicin is not appropriate for [place]-therapy. [2] Oxacillin (methicillin) susceptibility is a surrogate for the oral and parenteral cephalosporins, beta-lactam combination agents (amoxicillin-clavulanate, ampicillin-sulbactam and piperacillin-tazobactam) and carbapenem agents. It is NOT a surrogate for penicillin, ampicillin or piperacillin susceptibility. Linear View Blood culture [[id number]] Collected: 01/23/22 0600 Lab Status: Final result Specimen: Blood Updated: 01/28/22 0701 Blood Culture No growth at 5 days. Blood culture [[id number]] Collected: 01/23/22 0126 Lab Status: Final result Specimen: Blood Updated: 01/28/22 0701 Blood Culture No growth at 5 days. COVID-19 PCR [[id number]] (Abnormal) Collected: 01/23/22 0044 Lab Status: Final [...] diagnosis of COVID-19 is performed using the [employer] [employer] m SARS-CoV-2 Assay as authorized by the FDA Emergency Use Authorization (EUA). This EUA assay is intended for In-vitro Diagnostic (IVD) use with respiratory specimens such as nasopharyngeal swabs collected from individuals during the acute phase of infection. This assay is performed based on the instructions for use provided by [employer] and additional guidance provided by CDC and FDA. Testing is performed in the [facility] within the Department of Pathology and Laboratory Medicine at [facility], certified under the Clinical Laboratory Improvement Amendments [...] fact sheets at the following FDA website: https://www.fda.gov/medical-devices/vhgqcwcvvzk-ymnzuku-1288-xqftb-68-fsikfihsq- kcv-uwtdneqvopyanq-blgcmbn-devices/zqokc-prcswjxrliu-zlcu SARS-Cov-2 RNA Source Trach Asp MRSA PCR [[id number]] Collected: 01/23/22 0044 Lab Status: Final result [...] of this test was determined by the [facility] [place] [place] Molecular Pathology Laboratory. It has been cleared [...] who have questions please contact the health administrator health care facility that requested your imaging first. Electronically signed by: Sona Haji MD, [facility] ([phone]), at 01/23/2022 2:[address] Head wo Contrast (Generic) (Exam End: 01/23/2022 3:58 AM) Impression Globi pallidi infarcts. Mild cerebral edema. Thank you for letting us participate in the care of this patient. If you are a health care provider and have any questions regarding this report, please contact the number below. For patients who have questions please contact the health administrator health care facility that requested your imaging first. Electronically signed by: Rex Addison MD, [facility] ([phone]), at 01/23/2022 4:27 AM XR Abdomen 1 [...] who have questions please contact the health administrator health care facility that requested your imaging first. Electronically signed by: Jacky Mello MD, [facility] ([phone]), at 01/23/2022 8:[address] Lower Extremity [...] who have questions please contact the health administrator health care facility that requested your imaging first. Electronically signed by: Melita Mills MD, [facility] ([phone]), at 01/24/2022 1:[address] Chest wo [...] who have questions please contact the health administrator health care facility that requested your imaging first. Electronically signed by: Rex Addison MD, [facility] ([phone]), at 01/23/2022 4:[address] Upper Extremity [...] who have questions please contact the health administrator health care facility that requested your imaging first. Electronically signed by: Rex Addison MD, [facility] ([phone]), at 01/23/2022 4:58 AM XR Forearm Left [...] who have questions please contact the health administrator health care facility that requested your imaging first. Electronically signed by: Rex Addison MD, [facility] ([phone]), at 01/23/2022 7:14 AM XR Chest One [...] who have questions please contact the health administrator health care facility that requested your imaging first. Electronically signed by: Rex Addison MD, [facility] ([phone]), at 01/23/2022 6:56 AM XR Femur 2 views Left (Generic) (Exam End: 01/23/2022 2:04 PM) Impression No significant osseous finding. Thank you for letting us participate in the care of this patient. If you are a health care provider and have any questions regarding this report, please contact the number below. For patients who have questions please contact the health administrator health care facility that requested your imaging first. Electronically signed by: Lisandro Pruett MD, [facility] ([phone]), at 01/23/2022 2:10 PM XR Tibia Fibula Left (Generic) (Exam End: 01/23/2022 2:04 PM) Impression No bony abnormality seen. Thank you for letting us participate in the care of this patient. If you are a health care provider and have any questions regarding this report, please contact the number below. For patients who have questions please contact the health administrator health care facility that requested your imaging first. Electronically signed by: Jacky Mello MD, [facility] ([phone]), at 01/23/2022 2:07 PM XR Chest One [...] who have questions please contact the health administrator health care facility that requested your imaging first. Electronically signed by: Lisandro Pruett MD, [facility] ([phone]), at 01/23/2022 5:01 PM MRI Brain wo [...] who have questions please contact the health administrator health care facility that requested your imaging first. Electronically signed by: Bernadine Edward [facility] ([phone]), at 01/24/2022 4:[address] Angiogram [place] (Exam End: 01/24/2022 11:32 PM) Impression Normal appearance of the large and medium size arteries of the head and neck Thank you for letting us participate in the care of this patient. If you are a health care provider and have any questions regarding this report, please contact the number below. For patients who have questions please contact the health administrator health care facility that requested your imaging first. Electronically signed by: Arun Helm MD, [facility] ([phone]), at 01/25/2022 10:[address] Angiogram Carotids (Exam End: 01/24/2022 11:32 PM) Impression Normal appearance of the large and medium size arteries of the head and neck Thank you for letting us participate in the care of this patient. If you are a health care provider and have any questions regarding this report, please contact the number below. For patients who have questions please contact the health administrator health care facility that requested your imaging first. Electronically signed by: Arun Helm MD, [facility] ([phone]), at 01/25/2022 10:[address] Chest Abdomen Pelvis w Contrast (Generic) (Exam [...] who have questions please contact the health administrator health care facility that requested your imaging first. Electronically signed by: Melita Mills MD, [facility] ([phone]), at 01/30/2022 3:20 PM Assessment: Alix Holland??is [...] to this Complex pain needs - adjusted TEACHER AIDE CLERICAL Leukocytosis now down-trending with treatment of c dif. Also requiring prophylaxis abx with cefazolin until fasciotomy closures. Duplexes were ordered for concern for DVT however these were not able to be completed due to Vac continue TEACHER AIDE CLERICAL Plan: #Rhabdomyolysis??d/t LUE??+ LLE??Compartment Syndrome??with hyperkalemic cardiac [...] and restarted precautions ?? # ALTHEA requiring RN VISITING; now on iHD # Hyponatremia (volume overloaded, not eating) # Hyperkalemia - Nephrology following - 1.5L fluid restriction in place ?? # Pain Control, c/b Chronic Opiate Abuse - adjusted TEACHER AIDE CLERICAL -on patient controlled anesthesia ? Physical Therapy [...] EDT NEPHROLOGY PROGRESS NOTE Reason for consult: ALTHEA/RN VISITING Baseline creatinine: ~0.7 (as of 04/2021) Interval [...] extent possible. Dania Thomas MD Nephrology Pager: [phone] Phoenix Dhillon RN - 02/04/2022 6:48 AM EDT OUTCOME EVALUATION NOTE: OUTCOME SUMMARY: Patient remains alert and oriented. He has been maxing out his TEACHER AIDE CLERICAL pumps limit and increased number of attempts [...] 250cc SS output over last 24 hours. TEACHER AIDE CLERICAL for pain control. Phos 7.5, Na 120, Cr 5.55, K 5.7 ALTHEA requiring RN VISITING, now iHD this AM Patient denies chest [...] mg/mL) in sodium chloride 0.9% 50 mL TEACHER AIDE CLERICAL infusion ??? diphenhydrAMINE (Benadryl) (50 mg/mL) injection 25 mg ??? prochlorperazine (Compazine) (5 mg/mL) injection 5 mg ??? ondansetron (pf) (Zofran) (2 mg/mL) injection 4 mg ??? naloxone (Narcan) (0.4 mg/mL) injection 0.2 mg ??? TEACHER AIDE CLERICAL hutton ??? HYDROmorphone (mg) TEACHER AIDE CLERICAL shift total and Settings verification ??? vancomycin [...] intermittently falling asleep during interview, NAD HEENT: CASSIUSRLA CARDS: regular rate and rhythm PULM: no [...] Component Value Units Date/Time C. Difficile Screen [[id number]] (Abnormal) Collected: 02/01/22 1355 Lab Status: Final [...] or approval by Infection Prevention. Blood culture [[id number]] Collected: 02/01/22 0635 Lab Status: Preliminary result Specimen: Blood Updated: 02/03/22 1501 Blood Culture No growth at 2 days. Blood culture [[id number]] Collected: 02/01/22 0625 Lab Status: Preliminary result Specimen: Blood Pediatric Updated: 02/03/22 1501 Blood Culture No growth at 2 days. Blood culture [[id number]] Collected: 01/28/22 0345 Lab Status: Final result Specimen: Blood Updated: 02/02/22 0701 Blood Culture No growth at 5 days. MRSA PCR [[id number]] Collected: 01/24/22 1310 Lab Status: Final result Specimen: Nasopharyngeal Swab Updated: 01/25/224 MRSA Result Negative MRSA Interp -- Negative for methicillin-resistant Staphylococcus aureus (MRSA) This test was performed using the Gene[employer]pert?? Dx System and the Xpert MRSA Assay. The MRSA target DNA was not detected. The sample processing control and probe check were valid. The performance of this test was determined by the [facility] [place] [place] [facility]. It has been cleared by the U.S. Food and Drug Administration for clinical use. Comment: [VERIFIED DATE]01.25.22 Verified By:Alfonso Soto (Electronic Signature) MRSA PCR [[id number]] Collected: 01/23/22 1247 Lab Status: Final result Specimen: Nasopharyngeal Swab Updated: 01/25/22 1023 MRSA Result Negative MRSA Interp -- Negative for methicillin-resistant Staphylococcus aureus (MRSA) This test was performed using the [employer]?? Dx System and the Xpert MRSA Assay. The MRSA target DNA was not detected. The sample processing control and probe check were valid. The performance of this test was determined by the [facility] [place] [place] Molecular [facility]. It has been cleared by the U.S. Food and Drug Administration for clinical use. Comment: [VERIFIED DATE]01.25.22 Verified By:Nora Shay (Electronic Signature) Lower Respiratory Culture Tracheal Aspirate [[id number]] (Abnormal) (Susceptibility) Collected: 01/23/22 1150 Lab Status: [...] Sensitive [1] Gentamicin is not appropriate for [place]-therapy. [2] Oxacillin (methicillin) susceptibility is a surrogate for the oral and parenteral cephalosporins, beta-lactam combination agents (amoxicillin-clavulanate, ampicillin-sulbactam and piperacillin-tazobactam) and carbapenem agents. It is NOT a surrogate for penicillin, ampicillin or piperacillin susceptibility. Linear View Blood culture [[id number]] Collected: 01/23/22 0600 Lab Status: Final result Specimen: Blood Updated: 01/28/22 0701 Blood Culture No growth at 5 days. Blood culture [[id number]] Collected: 01/23/22 0126 Lab Status: Final result Specimen: Blood Updated: 01/28/22 0701 Blood Culture No growth at 5 days. COVID-19 PCR [[id number]] (Abnormal) Collected: 01/23/22 0044 Lab Status: Final [...] diagnosis of COVID-19 is performed using the [employer] m SARS-CoV-2 Assay as authorized by the FDA Emergency Use Authorization (EUA). This EUA assay is intended for In-vitro Diagnostic (IVD) use with respiratory specimens such as nasopharyngeal swabs collected from individuals during the acute phase of infection. This assay is performed based on the instructions for use provided by [employer] and additional guidance provided by CDC and FDA. Testing is performed in the [facility] within the Department of Pathology and Laboratory Medicine at [facility], certified under the Clinical Laboratory Improvement Amendments [...] fact sheets at the following FDA website: https://www.fda.gov/medical-devices/xujtrwtgsgb-vnqzdpx-9555-vqmwd-54-myyjemkfe- zrw-ncwpewafqmnkrs-txgwfdu-devices/denxe-dkkkahfpnby-mopw SARS-Cov-2 RNA Source Trach Asp MRSA PCR [[id number]] Collected: 01/23/22 0044 Lab Status: Final result Specimen: Nasopharyngeal Swab Updated: 01/25/22 1024 MRSA Result Negative MRSA Interp -- Negative for methicillin-resistant Staphylococcus aureus (MRSA) This test was performed using the [employer]?? Dx System and the Xpert MRSA Assay. The MRSA target DNA was not detected. The sample processing control and probe check were valid. The performance of this test was determined by the [facility] [place] [place] Molecular Pathology Laboratory. It has been cleared [...] who have questions please contact the health administrator health care facility that requested your imaging first. Head wo Contrast (Generic) (Exam End: 01/23/2022 3:58 AM) Impression Globi pallidi infarcts. Mild cerebral edema. Thank you for letting us participate in the care of this patient. If you are a health care provider and have any questions regarding this report, please contact the number below. For patients who have questions please contact the health administrator health care facility that requested your imaging first. Electronically signed by: Rex Addison MD, [facility] ([phone]), at 01/23/2022 4:27 AM XR Abdomen 1 [...] who have questions please contact the health administrator health care facility that requested your imaging first. Electronically signed by: Jacky Mello MD, [facility] ([phone]), at 01/23/2022 8:[address] Lower Extremity [...] who have questions please contact the health administrator health care facility that requested your imaging first. Electronically signed by: Melita Mills MD, [facility] ([phone]), at 01/24/2022 1:[address] Chest wo [...] who have questions please contact the health administrator health care facility that requested your imaging first. Electronically signed by: Rex Addison MD, [facility] ([phone]), at 01/23/2022 4:[address] Upper Extremity [...] who have questions please contact the health administrator health care facility that requested your imaging first. Electronically signed by: Rex Addison MD, [facility] ([phone]), at 01/23/2022 4:58 AM XR Forearm Left [...] who have questions please contact the health administrator health care facility that requested your imaging first. Electronically signed by: Rex Addison MD, [facility] ([phone]), at 01/23/2022 7:14 AM XR Chest One [...] who have questions please contact the health administrator health care facility that requested your imaging first. Electronically signed by: Rex Addison MD, [facility] ([phone]), at 01/23/2022 6:56 AM XR Femur 2 views Left (Generic) (Exam End: 01/23/2022 2:04 PM) Impression No significant osseous finding. Thank you for letting us participate in the care of this patient. If you are a health care provider and have any questions regarding this report, please contact the number below. For patients who have questions please contact the health administrator health care facility that requested your imaging first. Electronically signed by: Lisandro Pruett MD, [facility] ([phone]), at 01/23/2022 2:10 PM XR Tibia Fibula Left (Generic) (Exam End: 01/23/2022 2:04 PM) Impression No bony abnormality seen. Thank you for letting us participate in the care of this patient. If you are a health care provider and have any questions regarding this report, please contact the number below. For patients who have questions please contact the health administrator health care facility that requested your imaging first. Electronically signed by: Jacky Mello MD, [facility] ([phone]), at 01/23/2022 2:07 PM XR Chest One [...] who have questions please contact the health administrator health care facility that requested your imaging first. Electronically signed by: Lisandro Pruett MD, [facility] ([phone]), at 01/23/2022 5:01 PM MRI Brain wo [...] who have questions please contact the health administrator health care facility that requested your imaging first. Electronically signed by: Bernadine Edward [facility] ([phone]), at 01/24/2022 4:[address] Angiogram [place] (Exam End: 01/24/2022 11:32 PM) Impression Normal appearance of the large and medium size arteries of the head and neck Thank you for letting us participate in the care of this patient. If you are a health care provider and have any questions regarding this report, please contact the number below. For patients who have questions please contact the health administrator health care facility that requested your imaging first. Electronically signed by: Arun Helm MD, [facility] ([phone]), at 01/25/2022 10:[address] Angiogram Carotids (Exam End: 01/24/2022 11:32 PM) Impression Normal appearance of the large and medium size arteries of the head and neck Thank you for letting us participate in the care of this patient. If you are a health care provider and have any questions regarding this report, please contact the number below. For patients who have questions please contact the health administrator health care facility that requested your imaging first. Electronically signed by: Arun Helm MD, [facility] ([phone]), at 01/25/2022 10:[address] Chest Abdomen Pelvis w Contrast (Generic) (Exam [...] who have questions please contact the health administrator health care facility that requested your imaging first. Electronically signed by: Melita Mills MD, [facility] ([phone]), at 01/30/2022 3:20 PM Assessment: Alix Holland??is [...] to be completed due to Vac continue TEACHER AIDE CLERICAL Plan: #Rhabdomyolysis??d/t LUE??+ LLE??Compartment Syndrome??with hyperkalemic cardiac [...] longer requires precautions ?? # ALTHEA requiring RN VISITING; now on iHD # Hyponatremia (volume overloaded, [...] EDT NEPHROLOGY PROGRESS NOTE Reason for consult: ALTHEA/RN VISITING Baseline creatinine: ~0.7 (as of 04/2021) Interval [...] with meals. Dania Thomas MD Nephrology Pager: [phone] Amberly Hardy OT - 02/03/2022 1:09 PM EDT Occupational Therapy Note Document Type: contact Total Minutes, Occupational Therapy: 0 Reason: Patient with low Hgb, 5.6. Defer OT. Will follow up as able and when appropriate. Pager: [phone] Amberly Hardy OT 02/03/2022 Occupational Therapy Rehabilitation Department Charlotte Castañeda, RD - 02/03/2022 11:40 AM EDT Nutrition [...] Communicated nutrition recs to provider Medicine pager #[phone]. Active Orders Diet NPO diet (Give Meds) [...] 01/28/2022 TRIG 359 01/26/2022 CRP <3.0 04/26/2021 [id number] 02/03/2022 SFOLATE 3.9 (L) 02/03/2022 IRON [...] encounter: 116.9 kg (257 lb 11.5 oz). [place] Body Weight: 81 kg Usual Body Weight: [...] sedation and extubated. Pt now on shift RN VISITING. TF frequently held for OR, have not advanced past trickle TF. TF d/c today, no access at this time. 01/25: Patient intubated and sedated. Pt to OR today for wound vacs. Estimated needs: Calories: 6541-5401 (20-25 kcal/kg IBW) for the first 7-10 [...] inpatient Thank you, Charlotte Castañeda RD Pager #:[phone] Candida Teran RN - 02/03/2022 11:39 AM EDT Patient Name: Alix Holland Wastewater Operator: Dania Thomas Wastewater Operator Requested Clinic: [facility] [place] [address] PHONE NUMBER Contact Phone/ First date of [...] unit for Hgb 6.4 7/4, likely ABLA TEACHER AIDE CLERICAL for pain control. ALTHEA requiring RN VISITING, now iHD Patient denies chest pain, shortness [...] mg/mL) in sodium chloride 0.9% 50 mL TEACHER AIDE CLERICAL infusion ??? diphenhydrAMINE (Benadryl) (50 mg/mL) injection 25 mg ??? prochlorperazine (Compazine) (5 mg/mL) injection 5 mg ??? ondansetron (pf) (Zofran) (2 mg/mL) injection 4 mg ??? naloxone (Narcan) (0.4 mg/mL) injection 0.2 mg ??? TEACHER AIDE CLERICAL hutton ??? HYDROmorphone (mg) TEACHER AIDE CLERICAL shift total and Settings verification ??? vancomycin [...] at 02/02/228 ??? heparin (porcine) infusion Stopped (02/01/22654) OBJECTIVE: Temp: [36.5 ??C (97.7 ??F)-37.1 ??C [...] mg/mL) in sodium chloride 0.9% 50 mL TEACHER AIDE CLERICAL infusion ??? diphenhydrAMINE (Benadryl) (50 mg/mL) injection 25 mg ??? prochlorperazine (Compazine) (5 mg/mL) injection 5 mg ??? ondansetron (pf) (Zofran) (2 mg/mL) injection 4 mg ??? naloxone (Narcan) (0.4 mg/mL) injection 0.2 mg ??? TEACHER AIDE CLERICAL hutton ??? HYDROmorphone (mg) TEACHER AIDE CLERICAL shift total and Settings verification ??? fentaNYL [...] and care for fasciotomy sites. Activity: NWB LUE, NWB LLE DVT prophylaxis: Per primary Closure: Wound vacs (L volar forearm 1 white & 2 black, L thigh 2 black) Dressing: WVac as above to -125mmHg Antibiotics: continue ABx until fasciotomy sites closed Nahed Fraser MD 02/02/2022 No future appointments. Dania Thomas MD - 02/02/2022 5:36 PM EDT NEPHROLOGY PROGRESS NOTE Reason for consult: ALTHEA/RN VISITING Baseline creatinine: ~0.7 (as of 04/2021) Interval [...] with meals. Dania Thomas MD Nephrology Pager: [phone] Luzmaria Saavedra RN - 02/02/2022 10:24 AM EDT C. difficile Infection (CDI) Consult Note Reason for Consult: Patient tested positive for C. difficile. Pertinent labs: PCR positive on 02/01/2022 Section of Infectious Disease Treatment Recommendations: For all inpatient cases of C. difficile [facility] Section of Infectious Disease recommends 125 mg of oral vancomycin QID for at least 14 days (10days beyond symptom resolution), even in cases of zvqt-kg-tbhaynjt disease. For cases of severe C. difficile infection, please call an Infectious Disease consult and consider adding intravenous metronidazole in addition to oral vancomycin. If the patient is on broad- spectrum antibiotics for another indication, consider continuing oral vancomycin for 7 days after the other antibiotics are stopped. For questions regarding treatment please contact the Infectious Disease fellow communications writer at pager [phone]. Infection Prevention Recommendations: ? ? Isolation Recommendations- [...] stay is anticipated, consult Infection Prevention (Pager [phone]) to discuss the process for discontinuing S&W [...] a previously positive test. Applicable policies, guidelines: (44315) C. difficile Testing Policy (v.3) Soap & Water Contact Precautions and C. difficile Procedure Standard and Expanded Precautions Policy Precautions for Specific Diseases and Conditions - Job Aid For questions regarding treatment, please contact the Infectious Disease fellow communications writer at pager [phone]. For all other questions regarding C. difficile, please contact Infection Prevention at [phone] or pager [phone]. Thank you. Evangelina Flynn MD - 02/02/2022 10:23 AM EDT MICU STAFF PROGRESS NOTE Critical Care Medicine Author: Evangelina Flynn MD Patient seen and examined on critical care rounds and discussed with house staff. Interval Events: Diagnosed with C diff, started on po vanco Anemia slightly worse yesterday, PRBC tx, suspected from oozing HD session ongoing this morning Pain better controlled on TEACHER AIDE CLERICAL Per dad slept well last night, more [...] Ventilator: NA on RA Current Drips: Dilaudid TEACHER AIDE CLERICAL Labs/studies reviewed, notable for: WBC 33, downtrending [...] with leukocytosis now on treatment, pneumonia, and [id number] infection (known prior to admission.) Fortunately he is cognitively intact. Active management needs include ongoing pain control which is currently better on dilaudid TEACHER AIDE CLERICAL, need for long-term management of substance use [...] DVTs ordered yesterday and pending NEURO: dilaudid TEACHER AIDE CLERICAL for acute pain currently; long-term suboxone may [...] Alix Holland Age: 31 y.o. Surgery/Issue: LUE, SHAMAR compartment syndrome s/p fasciotimies, I&D 01/23/22, 01/26/22 (Dr. Garcia), I&D w/ partial closure 01/29/22 (Dr. Valdovinos), I&D 01/31/22 (Dr. Branch) Attending: Dr. Sanz Date of surgery: 01/31/2022 SUBJECTIVE / INTERVAL HISTORY: AF, tachycardic to the 110s overnight. WBC 30.5 from 30.4 (43.9 early 02/01) Resting comfortably in MICU. Mental status improved, patient conversant. Hgb 7.0 after transfusing 1 unit for Hgb 6.4 yesterday, likely ABLA Started TEACHER AIDE CLERICAL for pain control. Patient denies chest pain, [...] mg/mL) in sodium chloride 0.9% 50 mL TEACHER AIDE CLERICAL infusion ??? diphenhydrAMINE (Benadryl) (50 mg/mL) injection 25 mg ??? prochlorperazine (Compazine) (5 mg/mL) injection 5 mg ??? ondansetron (pf) (Zofran) (2 mg/mL) injection 4 mg ??? naloxone (Narcan) (0.4 mg/mL) injection 0.2 mg ??? TEACHER AIDE CLERICAL hutton ??? HYDROmorphone (mg) TEACHER AIDE CLERICAL shift total and Settings verification ??? fentaNYL [...] K+, 3 mEq/L Ca++ 5 each (02/01/22 0302) ??? potassium phos in 0.9% sodium chloride (CRRT) Stopped (01/30/22814) ??? calcium gluconate Stopped (02/01/22654) ??? Dextrose 10% with Custom Additives 100 mL/hr at 02/01/222204 ??? heparin (porcine) infusion Stopped (02/01/22654) OBJECTIVE: [...] (1,000 units/mL) injection 1,000-10,000 Units 1,000-10,000 Units [id number] PRN Dimas Hernandez MD 2,400 Units at [...] BID Dimas Hernandez MD 10 mg at 02/01/2215 ??? dextrose 10% 1,000 mL with sodium chloride 154 mEq infusion Intravenous Continuous Raza Hernandez MD 100 mL/hr at 01/31/22 2310 New Bag at 01/31/22 2310 ??? senna-docusate (Pericolace) 8.6-50 mg per tablet 2 tablet 2 tablet Oral BID Dimas Hernandez MD 2 tablet at 01/31/222116 ??? folic acid (Folvite) tablet 1,000 mcg 1,000 mcg Oral Daily Dimas Hernandez MD 1,000 mcg at 02/01/22914 ??? thiamine (Vitamin B1) tablet 100 mg 100 mg Oral Daily Dimas Hernandez MD 100 mg at 02/01/2215 ??? ampicillin-sulbactam (Unasyn) 1.5 g vial attach [...] patch REMOVAL 1 patch Transdermal Q24H Dimas Hernanedz MD ??? pantoprazole (Protonix) injection 40 mg [...] mL) subcutaneous injection 5,000 Units 5,000 Units [id number] Dimas Santos MD 5,000 Units at 02/01/22 [...] Sanz MD - 02/01/2022 9:11 AM EDT [facility] [place] [place] MICU STAFF PROGRESS NOTE SECTION OF PULMONARY [...] Section of Pulmonary & Critical Care Pager: [phone] ArmandoDoc MD - 02/01/2022 6:45 AM EDT [...] 10% with Custom Additives 100 mL/hr at 01/31/222309 ??? heparin (porcine) infusion 400 Units/hr (01/31/222038) [...] Active Hospital Problems Diagnosis ? ? LUE, SHAMAR compartment syndrome s/p fasciotimies, I+D 01/23/22, 01/26/22 [...] (CRRT) Stopped (01/30/22814) ??? calcium gluconate Stopped (01/31/22 06) ??? [...] (1,000 units/mL) injection 1,000-10,000 Units 1,000-10,000 Units [id number] PRN Dimas Hernandez MD ??? bicarbonate CRRT [...] mL) subcutaneous injection 5,000 Units 5,000 Units [id number] Dimas Santos MD 5,000 Units at 01/31/22 0535 Facility-Administered Medications Ordered in Other Encounters Medication Dose Route Frequency Provider Last Rate Last Admin ??? fentaNYL (pf) (50 mcg/mL) multi-dose injection Intravenous PRN Sharon Pirianthini, MD 50 mcg at 01/31/22 1044 ??? propofoL (Diprivan) 10 mg/mL bolus injection (Anesthesia) Intravenous PRLen Mccall MD 200 mg at 01/31/22 1041 ??? PHENYLephrine in NS (PF) (RUSTAM-SYNEPHRINE) 0.8 mg/10 mL (80 mcg/mL) multi- dose injection Syrg Intravenous PRLen Mccall MD 80 mcg at 01/31/22 1041 ??? propofoL (Diprivan) (10 mg/mL) infusion Intravenous Continuous PRLen Mccall MD 34.35 mL/hr at 01/31/22 1057 50 mcg/kg/min at 01/31/22 1057 ??? dexAMETHasone (Decadron) injection Intravenous PRLen Mccall MD 8 mg at 01/31/22 1058 ??? [...] 108 65 - 199 mg/dL Vidhya Peñaloza #[phone] Associated attestation - Jareth Nino MD - [...] We will plan for further shift therapy RN VISITING overnight. Anticipate trial of intermittent dialysis TuesdayFebruary 02 assuming intake and vital signs remain acceptable. Beck Sanz MD - 01/31/2022 8:51 AM EDT [facility] [place] [place] MICU STAFF PROGRESS NOTE SECTION OF PULMONARY [...] Section of Pulmonary & Critical Care Pager: [phone] Dimas Hernandez MD - 01/31/2022 6:25 AM [...] (CRRT) Stopped (01/30/22 08) ??? calcium gluconate 10 mL/hr (01/31/22311) ??? [...] possible closure. Please keep NPO Activity: NWB CEZAR, NWB GLENE DVT prophylaxis: [...] seen and examined. - Patient transitioned to [facility]. - Chemistries are stable for now. - [...] (1,000 units/mL) injection 1,000-10,000 Units 1,000-10,000 Units [id number] PRN Vidhya Peñaloza MD ??? bicarbonate CRRT [...] Daily Agnieszka López APRN 1,000 mcg at 01/30/22 09 ??? thiamine (Vitamin B1) tablet 100 mg 100 mg Oral Daily Agnieszka López ASSISTANT PROFESSOR OF SOCIOLOGY 100 mg at ??? ampicillin-sulbactam (Unasyn) 1.5 g vial attach to sodium chloride 0.9% 50 mL Mini-Bag Plus 1.5 g Intravenous Q8H Agnieszka López ASSISTANT PROFESSOR OF SOCIOLOGY Stopped at 01/30/22 0929 ??? acetaminophen (Tylenol) tablet 1,000 mg 1,000 mg Oral Q8H [place] Cristina Hillman B, ASSISTANT PROFESSOR OF SOCIOLOGY 1,000 mg at 01/30/22 0611 ??? polyethylene glycoL (Miralax) packet 17 g 17 g Oral Daily Rafy Gemma B, ASSISTANT PROFESSOR OF SOCIOLOGY 17 g at 01/29/22 0957 ??? lidocaine (Lidoderm) 5% patch 3 patch 3 patch Transdermal Q24H Sun Hayden PA 3 patch at 01/29/222211 And ??? lidocaine (Lidoderm) topical patch REMOVAL 1 patch Transdermal Q24H Sun Hayden PA ??? pantoprazole (Protonix) injection 40 mg 40 mg Intravenous Daily Rafy Gemma B, ASSISTANT PROFESSOR OF SOCIOLOGY 40 mg at01/30/22916 ??? docusate sodium (Colace) (10 mg/mL) oral liquid 100 mg 100 mg Oral BID Rafy, Gemma B, ASSISTANT PROFESSOR OF SOCIOLOGY 100 mg at 01/29/222130 And ??? sennosides (Senokot) (1.76 mg/mL) oral liquid 17.6 mg 17.6 mg Oral BID Rafy, Gemma B, ASSISTANT PROFESSOR OF SOCIOLOGY 17.6 mg at 01/29/222130 ??? naloxone (Narcan) (0.4 mg/mL) injection 0.4 mg 0.4 mg Intravenous Once PRN Sun Hayden PA ??? ketamine (Ketalar) (1 mg/mL) in sodium chloride 0.9% 250 mL infusion 0.1 mg/kg/hr Intravenous Continuous Agnieszka López APRN 11.6 mL/hr at 01/30/2210 0.1 mg/kg/hr at 01/30/22909 And ??? ketamine shift total and Settings verification Intravenous 2 Times Daily - Shift Total López, Agnieszka L, ASSISTANT PROFESSOR OF SOCIOLOGY ??? heparin (porcine) 50 units/mL in sodium chloride 0.45% 500 mL infusion 400 Units/hr Intravenous Continuous Pentland, Gemma B, ASSISTANT PROFESSOR OF SOCIOLOGY 8 mL/hr at 01/29/222130 400 Units/hr at 01/29/222130 ??? glucose (Glutose) 40% oral geL 15-30 g of glucose Buccal Q30 Min PRN Pentland, Gemma B, ASSISTANT PROFESSOR OF SOCIOLOGY Or ??? dextrose 10% infusion 250 mL Intravenous Q30 Min PRN Pentland, Gemma B, ASSISTANT PROFESSOR OF SOCIOLOGY Stopped at Or ??? glucagon (Glucagen) (1 mg/mL) injection solution 1 mg 1 mg Intramuscular Q30 Min PRN Pentland, Gemma B, ASSISTANT PROFESSOR OF SOCIOLOGY ??? heparin (porcine) (5,000 units/1 mL) subcutaneous injection 5,000 Units 5,000 Units VztiazjkmdqqV0V [place] Pentland, Gemma B, ASSISTANT PROFESSOR OF SOCIOLOGY 5,000 Units at 01/30/22 0611 Recent Results [...] QTC Calculated (Bezet) 418 ms Calculated P Holden 13 degrees Calculated R Holden 31 degrees Calculated T Holden -8 degrees INTERPRETATION Sinus tachycardia Nonspecific T [...] 9 5 - 15 mmol/L Vidhya Peñaloza #[id number] Associated attestation - Jareth Nino MD - 01/30/2022 4:29 PM EDT I discussed patient with the fellow and observed from the doorway in the setting of COVID-19 isolation. 31-year-old male with an uric ALTHEA in the setting of rhabdomyolysis. We will trial prolonged intermittent CRRT over the weekend. [place] for success of this will be tapering fluid intake target 2 to 3 L. If he is able to tolerate this and we are able to manage ongoing metabolic derangements could consider transition to intermittent dialysis by next week should patient remain anuric Beck Sanz MD - 01/30/2022 8:49 AM EDT [facility] [place] [place] MICU STAFF PROGRESS NOTE SECTION OF PULMONARY [...] Section of Pulmonary & Critical Care Pager: [phone] Armando, Doc Martinez MD - 01/30/2022 6:48 [...] Please make NPO after midnight. Activity: NWB LUE, NWB LLE DVT prophylaxis: [...] (01/29/221751) ??? heparin (porcine) infusion Stopped (01/28/22 144) ??? bicarbonate CRRT with 4 mEq/L K+, [...] wound and L thigh wound. Activity: NWB LIZE, NWB GLENE DVT prophylaxis: [...] 2.7) performed by Sigifredo Garcia MD at [facility] OR ? ? PRO DEBRIDEMENT MUSCLE AND FASCIA 20 SQ CM/< Left 01/26/2022 DEBRIDEMENT SKIN, SUBCU, MUSCLE, UPPER EXTREMITY (WRVU 2.7) performed by Sigifredo Garcia MD at [facility] MAIN OR ??? PRO DECOMP FOREARM, 2 COMPART, W/O DEBRIDE Left 01/23/2022 FASCIOTOMY; FOREARM AND\OR WRIST, FLEXOR & EXTENS. COMP (WRVU 10.79) performed by Sigifredo Garcia MD at [facility] MAIN OR ??? PRO DECOMPRESS ANT/LAT+POST LEG CMPART Left 01/23/2022 FASCIOTOMY, LOWER LEG, ALL COMPARTMENTS (WRVU 7.82) performed by Sigifredo Garcia MD at [facility] OR ??? PRO INCIS OF HIP/THIGH FASCIA Left 01/23/2022 @FASCIOTOMY,THIGH OR HIP FOR COMPARTMENT SYNDROME (WRVU 12.89) performed by Sigifredo Garcia MD at [facility] OR ??? PRO OPEN TREAT MANDIBLE CONDYLE FX, COMPL 04/27/2013 OPEN TREATMENT, COMPLEX MANDIBLE FX., MULTI APPROACH, W/ FIXATION performed by Kishore Neil MD at [facility] OR ??? PRO REVISE MEDIAN N/CARPAL TUNNEL SURG Left 01/23/2022 MEDIAN NERVE DECOMPRESSION (CARPAL TUNNEL RELEASE) (WRVU 4.97) performed by Sigifredo Garcia MD at [facility] MA[facility] OR ??? PRO SEC CLSR SURG WOUND/DEHSN EXTENSIVE/COMPLICATED Left 01/26/2022 SECONDARY CLOSURE SURGICAL WOUND OR DEHISCENCE, EXTENSIVE OR COMPLICATED, UPPER EXTREMITY (WRVU 12.04) performed by Sigifredo Garcia MD at [facility] MA[facility] OR Social History: Patient lives in [place], [place] with his dad. Home Setup: 2 [address], 2 level home, bedroom on 1st level, bathroom available on 1st level, has a tub shower downstairs. DME:none Baseline ADL/Mobility: Pt reports he was independent w/ aDL's and IADL's, had worked for a [employer]. He enjoys hunting and fishing. He reports he likes [employer] music (when asked) Precautions/Special Considerations: at risk [...] oriented to: person, thought he was at [facility] (reoriented to ), when asked the date [...] and measurable assessment of functional outcome. Pager: [phone] JACK JOE OT 01/29/2022 Occupational Therapy Rehabilitation [...] be placed/TF cannot reach goal On shift RN VISITING Suggest Nepro with a goal rate of 45 ml per hour + 8 scoops protein powder daily This rate is calculated to compensate for unplanned time off feedings due to potential procedures, etc. At goal, this will provide 900 ml formula, 1820 calories, 121 grams protein, 654 ml water from formula, and 95% of RDI's for vitamins and minerals. Monitor weight Monitor eliazardiamond Fritz was able to discuss plan with provider ARLETH Martinez pager #[phone]. All Active TF Orders: Peptamen Intense VHP [...] Other Sites: Wound vac Relevant medications: shift RN VISITING, D10 at 100ml/hr, colace, marinol, folic acid, [...] encounter: 116.7 kg (257 lb 4.4 oz). [place] Body Weight: 81 kg Usual Body Weight: [...] sedation and extubated. Pt now on shift RN VISITING. TF frequently held for OR, have not advanced past trickle TF. TF d/c today, no access at this time. 01/25: Patient intubated and sedated. Pt to OR today for wound vacs. Estimated needs: Calories: 1477-1602 (20-25 kcal/kg IBW) for the first 7-10 days in the ICU Protein: 122 grams (1.5 g/kg IBW) while on shift RN VISITING Average tube feeding provision over past 3 [...] Not enough data to assess (Keven et al, BUSTER J Parenteral Enteral Nutr. 2011; 36(3): 273-53) Nutrition to continue to follow up while inpatient Thank you, Charlotte Castañeda RD Pager #:[phone] Meghan Prabhakar, PT - 01/29/2022 10:35 AM [...] 2.7) performed by Sigifredo Garcia MD at [facility] OR ? ? PRO DEBRIDEMENT MUSCLE AND FASCIA 20 SQ CM/< Left 01/26/2022 DEBRIDEMENT SKIN, SUBCU, MUSCLE, UPPER EXTREMITY (WRVU 2.7) performed by Sigifredo Garcia MD at [facility] OR ??? PRO DECOMP FOREARM, 2 COMPART, W/O DEBRIDE Left 01/23/2022 FASCIOTOMY; FOREARM AND\OR WRIST, FLEXOR & EXTENS. COMP (WRVU 10.79) performed by Sigifredo Garcia MD at [facility] OR ??? PRO DECOMPRESS ANT/LAT+POST LEG CMPART Left 01/23/2022 FASCIOTOMY, LOWER LEG, ALL COMPARTMENTS (WRVU 7.82) performed by Sigifredo Garcia MD at [facility] OR ??? PRO INCIS OF HIP/THIGH FASCIA Left 01/23/2022 @FASCIOTOMY,THIGH OR HIP FOR COMPARTMENT SYNDROME (WRVU 12.89) performed by Sigifredo Garcia MD at [facility] OR ??? PRO OPEN TREAT MANDIBLE CONDYLE FX, COMPL 04/27/2013 OPEN TREATMENT, COMPLEX MANDIBLE FX., MULTI APPROACH, W/ FIXATION performed by Kishore Neil MD at [facility] OR ??? PRO REVISE MEDIAN N/CARPAL TUNNEL SURG Left 01/23/2022 MEDIAN NERVE DECOMPRESSION (CARPAL TUNNEL RELEASE) (WRVU 4.97) performed by Sigifredo Garcia MD at [facility] OR ??? PRO SEC CLSR SURG WOUND/DEHSN EXTENSIVE/COMPLICATED Left 01/26/2022 SECONDARY CLOSURE SURGICAL WOUND OR DEHISCENCE, EXTENSIVE OR COMPLICATED, UPPER EXTREMITY (WRVU 12.04) performed by Sigifredo Garcia MD at [facility] OR Social History: Home setup: Pt lives with his father in a two level home with a couple [place]. Pt's bedroom and bathroom are on the first floor. The bathroom has a tub shower. Baseline Mobility/Prior level of function: Independent with mobility, ADLs and IADLs, drives, used to work for a [employer] company but is not currently working. Enjoys [...] self, hospital (but thinks he is at [facility]), and general situation but not specific injuries. [...] in this evaluation. Time IN / OUT: 3128-7767 Total Minutes, Physical Therapy: 43 (eval). Meghan Prabhakar PT DPT 01/29/2022 Pager: [phone] Physical Therapy Inpatient Rehabilitation Department Alcira Dwyer [...] kg/m?? I/O last 3 completed shifts: In: 06710.3 [P.O.:1070; I.V.:8680.3; Other:40; NG/GT:394; IV Piggyback:303] Out: [...] renal failure starting on Tuesday. Backer, Beck Malik MD - 01/29/2022 8:58 AM EDT [facility] [place] [place] MICU STAFF PROGRESS NOTE SECTION OF PULMONARY [...] calf forearm and wrist and POD#3 I+D LUE, LLE. Previously completed treatment for aspiration pneumonia versus [...] Section of Pulmonary & Critical Care Pager: [phone] Armando, Doc Martinez MD - 01/29/2022 6:56 [...] y.o. male 3 Days Post-Op s/p I+D CEZAR LLE. Doing well post-operatively. Multimodal pain regimen [...] as appropriate. Meghan Prabhakar PT DPT Pager #[phone] 01/28/2022 Physical Therapy Rehabilitation Department Dai Duarte, OT - 01/28/2022 11:28 AM EDT Occupational Therapy: 01/28/22 1127 Evaluation & Treatment Document Type contact Total Minutes, Occupational Therapy 0 Comment, Session Not Performed OT orders received/chart reviewed. Patient scheduled for the OR today. RN requested therapy hold for today. OT will follow up tomorrow Dai Duarte OTR/L Pager [phone] Alcira Dwyer MD - 01/28/2022 9:09 AM [...] kg/m?? 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 We can decide tomorrow if he is a candidate for shift therapy. It is possible that he will improve enough that he could be managed with diuretics. We will continue to follow Beck Sanz MD - 01/28/2022 9:07 AM EDT [facility] [place] [place] MICU STAFF PROGRESS NOTE SECTION OF PULMONARY [...] Section of Pulmonary & Critical Care Pager: [phone] Parrish Esqueda MD - 01/28/2022 5:26 AM [...] per 24 hour Intake 9192.61 ml Output 94550 ml Net -1170.39 ml Body mass index [...] y.o. male 2 Days Post-Op s/p I+D LUE, LLE. Doing well post-operatively. Now extubated on RA. Multimodal pain regimen keeping patient relatively sedated. Plan for return to OR today for repeat washout. Please keep NPO. Activity: NWB LIZE, NWB LLE DVT prophylaxis: [...] RN - 01/27/2022 9:16 PM EDTSummary: tele [facility] Images from the original note were [...] 0.5 mcg/kg/hr (01/28/22 0420) Recent Labs 01/25/22 0601/24/22 0620 01/24/22 0016 PHART 7.45 7.48* 7.48* [id number] 33* 29* 30* PO2ART 114* 68* 70* [id number] 22.4 21.1 22.0 Intake/Output Summary (Last 24 hours) at 01/28/2022 0703 Last data filed at 01/28/2022 0700 Gross per 24 hour Intake 9662.51 ml Output 19397 ml Net -1043.49 ml Output: Urine 70 mL For admission: +22867.1 mL Physical Exam: General: Awake, somewhat conversational [...] Procedure Component Value Units Date/Time MRSA PCR [[id number]] Collected: 01/24/22 1310 Lab Status: Final result [...] of this test was determined by the [facility] [place] [place] Molecular Pathology Laboratory. It has been cleared by the U.S. Food and Drug Administration for clinical use. Comment: [VERIFIED DATE]01.25.22 Verified By:Alfonso Soto (Electronic Signature) MRSA PCR [[id number]] Collected: 01/23/22 1247 Lab Status: Final result [...] of this test was determined by the [facility] [place] [place] Molecular Pathology Laboratory. It has been cleared by the U.S. Food and Drug Administration for clinical use. Comment: [VERIFIED DATE]01.25.22 Verified By:Nora Shay (Electronic Signature) Lower Respiratory Culture Tracheal Aspirate [[id number]] (Abnormal) (Susceptibility) Collected: 01/23/22 1150 Lab Status: [...] Sensitive [1] Gentamicin is not appropriate for [place]-therapy. [2] Oxacillin (methicillin) susceptibility is a surrogate for the oral and parenteral cephalosporins, beta-lactam combination agents (amoxicillin-clavulanate, ampicillin-sulbactam and piperacillin-tazobactam) and carbapenem agents. It is NOT a surrogate for penicillin, ampicillin or piperacillin susceptibility. Linear View Blood culture [[id number]] Collected: 01/23/22 0600 Lab Status: Final result Specimen: Blood Updated: 01/28/22 0701 Blood Culture No growth at 5 days. Blood culture [[id number]] Collected: 01/23/22 0126 Lab Status: Final result Specimen: Blood Updated: 01/28/22 0701 Blood Culture No growth at 5 days. COVID-19 PCR [[id number]] (Abnormal) Collected: 01/23/22 0044 Lab Status: Final [...] diagnosis of COVID-19 is performed using the [employer] [employer] m SARS-CoV-2 Assay as authorized by the FDA Emergency Use Authorization (EUA). This EUA assay is intended for In-vitro Diagnostic (IVD) use with respiratory specimens such as nasopharyngeal swabs collected from individuals during the acute phase of infection. This assay is performed based on the instructions for use provided by [employer] and additional guidance provided by CDC and FDA. Testing is performed in the [facility] Laboratory within the Department of Pathology and Laboratory Medicine at [facility], certified under the Clinical Laboratory Improvement Amendments [...] fact sheets at the following FDA website: https://www.fda.gov/medical-devices/hjwmkbtogmd-lbwnywi-7245-gwgij-09-blzwvlbqx- qva-kpioupudkqzciv-lalgouz-devices/gulba-bckjksslnsn-twuk SARS-Cov-2 RNA Source Trach Asp MRSA PCR [[id number]] Collected: 01/23/22 0044 Lab Status: Final result [...] of this test was determined by the [facility] [place] [place] Molecular Pathology Laboratory. It has been cleared [...] Full Disposition: ICU Suggestions for changes: Gail Liana Ethan January 28, 2022 Critical Care Green Team (pager [phone]) Alcira Dwyer MD - 01/27/2022 10:10 AM [...] kg/m?? I/O last 3 completed shifts: In: 02379.5 [I.V.:67597.5; NG/GT:319; IV Piggyback:236] Out: 8974 [Urine:105; Other:8864; [...] increase in urine output but not significant Beck Sanz MD - 01/27/2022 9:35 AM EDT [facility] [place] [place] MICU STAFF PROGRESS NOTE SECTION OF PULMONARY [...] Section of Pulmonary & Critical Care Pager: [phone] Gail Long - 01/27/2022 6:14 AM EDT [...] mL/hr at 01/27/22 0800 ??? NORepinephrine Stopped (01/26/222016) ??? fentaNYL 50 mcg/hr (01/27/22 08) ??? dexmedeTOMIDine 0.5 mcg/kg/hr (01/27/22 08) Recent Labs 01/25/22 0601/24/22 0620 01/24/22 0016 PHART 7.45 7.48* 7.48* [id number] 33* 29* 30* PO2ART 114* 68* 70* [id number] 22.4 21.1 22.0 Intake/Output Summary (Last 24 hours) at 01/27/2022 0941 Last data filed at 01/27/2022 0900 Gross per 24 hour Intake 51403.32 ml Output 7421 ml Net 3034.32 ml [...] 4.6 4.7 CL 104 103 104 CO2 25 27 25 BUN 21* 26* 28* CREATININE [...] Procedure Component Value Units Date/Time MRSA PCR [[id number]] Collected: 01/24/22 1310 Lab Status: Final result Specimen: Nasopharyngeal Swab Updated: 01/25/222223 MRSA Result Negative MRSA Interp -- Negative for methicillin-resistant Staphylococcus aureus (MRSA) This test was performed using the [employer]?? Dx System and the Xpert MRSA Assay. The MRSA target DNA was not detected. The sample processing control and probe check were valid. The performance of this test was determined by the [facility] [place] [place] Molecular Pathology Laboratory. It has been cleared by the U.S. Food and Drug Administration for clinical use. Comment: [VERIFIED DATE]01.25.22 Verified By:Alfonso Soto (Electronic Signature) MRSA PCR [[id number]] Collected: 01/23/22 1247 Lab Status: Final result Specimen: Nasopharyngeal Swab Updated: 01/25/22 1023 MRSA Result Negative MRSA Interp -- Negative for methicillin-resistant Staphylococcus aureus (MRSA) This test was performed using the [employer]?? Dx System and the Xpert MRSA Assay. The MRSA target DNA was not detected. The sample processing control and probe check were valid. The performance of this test was determined by the [facility] [place] [place] Molecular Pathology Laboratory. It has been cleared by the U.S. Food and Drug Administration for clinical use. Comment: [VERIFIED DATE]01.25.22 Verified By:Nora Shay (Electronic Signature) Lower Respiratory Culture Tracheal Aspirate [[id number]] (Abnormal) (Susceptibility) Collected: 01/23/22 1150 Lab Status: [...] Sensitive [1] Gentamicin is not appropriate for [place]-therapy. [2] Oxacillin (methicillin) susceptibility is a surrogate for the oral and parenteral cephalosporins, beta-lactam combination agents (amoxicillin-clavulanate, ampicillin-sulbactam and piperacillin-tazobactam) and carbapenem agents. It is NOT a surrogate for penicillin, ampicillin or piperacillin susceptibility. Linear View Blood culture [[id number]] Collected: 01/23/22 0600 Lab Status: Preliminary result Specimen: Blood Updated: 01/27/22 0701 Blood Culture No growth at 4 days. Blood culture [[id number]] Collected: 01/23/22 0126 Lab Status: Preliminary result Specimen: Blood Updated: 01/27/22 0701 Blood Culture No growth at 4 days. COVID-19 PCR [[id number]] (Abnormal) Collected: 01/23/22 0044 Lab Status: Final [...] diagnosis of COVID-19 is performed using the [employer] SARS-CoV-2 Assay as authorized by the FDA Emergency Use Authorization (EUA). This EUA assay is intended for In-vitro Diagnostic (IVD) use with respiratory specimens such as nasopharyngeal swabs collected from individuals during the acute phase of infection. This assay is performed based on the instructions for use provided by [employer] and additional guidance provided by CDC and FDA. Testing is performed in the [facility] Laboratory within the Department of Pathology and Laboratory Medicine at [facility], certified under the Clinical Laboratory Improvement Amendments [...] fact sheets at the following FDA website: https://www.fda.gov/medical-devices/nkxkopzglzj-ultmchu-4253-fnctd-28-nlblyqlwc- ote-isjdzgqtdhqvsb-fkegabe-devices/qtxdp-uluxjgrgdpd-otdh SARS-Cov-2 RNA Source Trach Asp MRSA PCR [[id number]] Collected: 01/23/22 0044 Lab Status: Final result [...] of this test was determined by the [facility] [place] [place] Molecular Pathology Laboratory. It has been cleared [...] APS Pulm: No acute issues ?? Tessalon sheryl 3 days scheduled Q6 for cough CV: [...] 0035 -- 4 Naso/Oral Tube 01/23/22 0059 Franklin sump left nostril 01/23/22 0059 left nostril 4 Consults: ortho, neuro, ACS, wound, nephrology Decision Making: Code Status: Full Disposition: ICU Suggestions for changes: Gail Long January 27, 2022 Critical Care Green Team (pager [phone]) Parrish Esqueda MD - 01/27/2022 5:32 AM [...] LLE compartment syndrome s/p fasciotimies, I+D 01/23/22 Garcia [...] 1204) ??? tube feeding diet 9,999 mL (01/26/22 2126) ??? NORepinephrine Stopped (01/26/222016) ??? fentaNYL 100 [...] y.o. male 1 Day Post-Op s/p I+D LUE, LLE. Doing well post-operatively. Now extubated with improving [...] RN - 01/26/2022 8:25 PM EDTSummary: tele [facility] Images from the original note were [...] K+, 3 mEq/L Ca++ 5 each (01/26/22 0561) ??? sodium phosphate ??? calcium gluconate Stopped (01/25/22 1204) ??? tube feeding diet Stopped (01/24/22 2300) ??? NORepinephrine 1 mcg/min (01/26/22 1409) ??? fentaNYL 200 mcg/hr (01/26/22 1400) ??? dexmedeTOMIDine 0.5 mcg/kg/hr (01/26/22 0826) Ventilator Settings: PS 5/5, 21% Recent Labs 01/25/22 0622 01/24/22 0620 01/24/22 0016 PHART 7.45 7.48* 7.48* [id number] 33* 29* 30* PO2ART 114* 68* 70* [id number] 22.4 21.1 22.0 Intake/Output Summary (Last 24 [...] Procedure Component Value Units Date/Time MRSA PCR [[id number]] Collected: 01/24/22 1310 Lab Status: Final result [...] of this test was determined by the [facility] [place] [place] Molecular Pathology Laboratory. It has been cleared by the U.S. Food and Drug Administration for clinical use. Comment: [VERIFIED DATE]01.25.22 Verified By:Alfonso Soto (Electronic Signature) MRSA PCR [[id number]] Collected: 01/23/22 1247 Lab Status: Final result [...] of this test was determined by the [facility] [place] [place] Molecular Pathology Laboratory. It has been cleared by the U.S. Food and Drug Administration for clinical use. Comment: [VERIFIED DATE]01.25.22 Verified By:Nora Shay (Electronic Signature) Lower Respiratory Culture Tracheal Aspirate [[id number]] (Abnormal) (Susceptibility) Collected: 01/23/22 1150 Lab Status: [...] Sensitive [1] Gentamicin is not appropriate for [place]-therapy. [2] Oxacillin (methicillin) susceptibility is a surrogate for the oral and parenteral cephalosporins, beta-lactam combination agents (amoxicillin-clavulanate, ampicillin-sulbactam and piperacillin-tazobactam) and carbapenem agents. It is NOT a surrogate for penicillin, ampicillin or piperacillin susceptibility. Linear View Blood culture [[id number]] Collected: 01/23/22 0600 Lab Status: Preliminary result Specimen: Blood Updated: 01/26/22 0701 Blood Culture No growth at 3 days. Blood culture [[id number]] Collected: 01/23/22 0126 Lab Status: Preliminary result Specimen: Blood Updated: 01/26/22 0701 Blood Culture No growth at 3 days. COVID-19 PCR [[id number]] (Abnormal) Collected: 01/23/22 0044 Lab Status: Final [...] diagnosis of COVID-19 is performed using the [employer] [employer] m SARS-CoV-2 Assay as authorized by the FDA Emergency Use Authorization (EUA). This EUA assay is intended for In-vitro Diagnostic (IVD) use with respiratory specimens such as nasopharyngeal swabs collected from individuals during the acute phase of infection. This assay is performed based on the instructions for use provided by [employer] and additional guidance provided by [facility] and FDA. Testing is performed in the [facility] Laboratory within the Department of Pathology and Laboratory Medicine at [facility], certified under the Clinical Laboratory Improvement Amendments [...] fact sheets at the following FDA website: https://www.fda.gov/medical-devices/wlsqwhhmikv-czcbvxs-5830-yzzio-81-vqsbjxwxh- qdw-mtsaxcetntfyot-rkhmxqh-devices/sbuef-cnodbmagkxr-cksj SARS-Cov-2 RNA Source Trach Asp MRSA PCR [[id number]] Collected: 01/23/22 0044 Lab Status: Final result Specimen: Nasopharyngeal Swab Updated: 01/25/22 1024 MRSA Result Negative MRSA Interp -- Negative for methicillin-resistant Staphylococcus aureus (MRSA) This test was performed using the [employer] Dx System and the Xpert MRSA Assay. The MRSA target DNA was not detected. The sample processing control and probe check were valid. The performance of this test was determined by the [facility] [place] [place] Molecular Pathology Laboratory. It has been cleared [...] 0035 -- 3 Naso/Oral Tube 01/23/22 0059 Franklin sump left nostril 01/23/22 0059 left nostril 3 ETT Airway 01/23/22 0116 01/23/22 0116 -- 3 Consults: ortho Decision Making: Code Status: Full Disposition: ICU Suggestions for changes: Gail Long January 26, 2022 Critical Care Green Team (pager [phone]) Nahed Fraser MD - 01/26/2022 11:32 AM [...] by PT/OT on POD1. Activity: NWB CEZAR, NWB SHAMAR DVT prophylaxis: Per primary Closure: Wound vacs (L forearm-1blk volar, 1blk dorsal L thigh-1blk, L leg-1blk) Dressing: WVac as above Antibiotics: continue ABx until fasciotomy sites closed Nahed Fraser MD 01/26/2022 No future appointments. Galdino Sarmiento, RT - 01/26/2022 10:08 AM EDT AMV [...] support patient with MV. RT Jameel Alcira Bustillo MD - 01/26/2022 9:49 AM EDT Patient [...] BackerBeck MD - 01/26/2022 8:00 AM EDT [facility] [place] [place] MICU STAFF PROGRESS NOTE SECTION OF PULMONARY [...] Section of Pulmonary & Critical Care Pager: [phone] Kris Dean MD - 01/26/2022 6:01 AM EDT ORTHOPAEDIC SURGERY INPATIENT PROGRESS NOTE Patient Name: Alix Holland Age: 31 y.o. Surgery/Issue: L forearm, thigh, buttock, leg compartment syndrome s/p fasciotomies Attending: Jose Date of surgery: 01/23/2022 SUBJECTIVE / INTERVAL HISTORY: Alix remains intubated and sedated, but per senior staff accountant he is moving bilateral upper [...] Mini-Bag Plus ??? propofoL 30 mcg/kg/min (01/26/22 0600) ??? heparin (porcine) infusion 400 Units/hr (01/26/22 06) ??? bicarbonate CRRT with 4 mEq/L K+, 3 mEq/L Ca++ 5 each (01/26/22 0549) ??? sodium phosphate ??? calcium gluconate Stopped (01/25/22 1204) ??? tube feeding diet Stopped (01/24/22 2300) ??? NORepinephrine 1 mcg/min (01/26/22 06) ??? fentaNYL 200 mcg/hr (01/26/22 06) ??? dexmedeTOMIDine 0.5 mcg/kg/hr (01/26/22 06) OBJECTIVE: Temp: [35.7 ??C (96.3 ??F)-36.4 ??C [...] continue to monitor and support. RT Arlene T Galdino Cotter RT - 01/25/2022 11:01 AM [...] Patient would occasionally take exceptionally large Vt's, hiwpri2zwm >2 liters. This was not typical however, and for the majority of the fit patient was comfortable with MV support. Continue to support patient with MV. RT Jameel Alcira Bustillo MD - 01/25/2022 9:46 AM EDT Patient is seen and examined in intensive care unit on CV. We are seeing the patient for acute kidney injury related to rhabdomyolysis. BP 128/84 Pulse 62 Temp 36.1 ??C (97 ??F) (Axillary) Resp 9 Ht 182.9 cm (6') Wt 113 kg (249 lb 1.9 oz) SpO2 95% BMI 33.79 kg/m?? I/O last 3 completed shifts: In: 91498 [I.V.:9488; NG/GT:97; IV Piggyback:904] Out: 5394 [Urine:171; [...] All his parameters are in good range. BackerBeck MD - 01/25/2022 7:53 AM EDT [facility] [place] [place] MICU STAFF PROGRESS NOTE SECTION OF PULMONARY [...] MICU Attending Pulmonary & Critical Care Pager: [phone] Kris Dean MD - 01/25/2022 5:55 AM EDT ORTHOPAEDIC SURGERY INPATIENT PROGRESS NOTE Patient Name: Alix Holland Age: 31 y.o. Surgery/Issue: L forearm, thigh, buttock, leg compartment syndrome s/p fasciotomies Attending: Jose Date of surgery: 01/23/2022 SUBJECTIVE / INTERVAL HISTORY: Alix remains intubated and sedated, but per senior staff accountant he is moving bilateral upper [...] K+, 3 mEq/L Ca++ 5 each (01/25/22 7915) ??? sodium phosphate ??? calcium gluconate 10 mL/hr (01/24/22 1700) ??? tube feeding diet Stopped (01/24/22 2300) ??? NORepinephrine Stopped (01/24/221856) ??? fentaNYL 150 mcg/hr (01/25/22 0500) ??? dexmedeTOMIDine 1.2 mcg/kg/hr (01/25/22 0500) ??? lactated Ringers 200 mL/hr (01/25/22 0021) OBJECTIVE: Temp: [36.2 ??C (97.2 ??F)-36.9 ??C (98.4 ??F)] Heart Rate: [56-95] Resp: [8] Intake/Output Summary (Last 24 hours) at 01/25/2022 [...] 1810 01/23/22 1156 PHART 7.48* 7.46* 7.43 [id number] 29* 31* 32* PO2ART 68* 79* 86 [id number] 21.1 21.5 20.8 Intake/Output Summary (Last 24 [...] Units Date/Time Lower Respiratory Culture Tracheal Aspirate [[id number]] (Abnormal) Collected: 01/23/22 1150 Lab Status: Preliminary result Specimen: Tracheal Aspirate Updated: 01/24/22 0848 Lower Respiratory Culture -- Many Staphylococcus aureus Few mixed bacterial morphotypes suggestive of normal upper respiratory yessy Gram Stain -- Many Neutrophils No squamous epithelial cells Moderate Gram Positive Cocci Blood culture [[id number]] Collected: 01/23/22 0600 Lab Status: Preliminary result Specimen: Blood Updated: 01/24/22 0701 Blood Culture No growth at 1 day. Blood culture [[id number]] Collected: 01/23/22 0126 Lab Status: Preliminary result Specimen: Blood Updated: 01/24/22 0701 Blood Culture No growth at 1 day. COVID-19 PCR [[id number]] (Abnormal) Collected: 01/23/22 0044 Lab Status: Final [...] diagnosis of COVID-19 is performed using the [employer] m SARS-CoV-2 Assay as authorized by the FDA Emergency Use Authorization (EUA). This EUA assay is intended for In-vitro Diagnostic (IVD) use with respiratory specimens such as nasopharyngeal swabs collected from individuals during the acute phase of infection. This assay is performed based on the instructions for use provided by [employer] and additional guidance provided by CDC and FDA. Testing is performed in the [facility] within the Department of Pathology and Laboratory Medicine at [facility], certified under the Clinical Laboratory Improvement Amendments [...] fact sheets at the following FDA website: https://www.fda.gov/medical-devices/iikxmkpfshj-eaxifng-3914-jljnk-56-hqymkhxku-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 CM/< Left 02/15/2022 DEBRIDEMENT SKIN, SUBCU, MUSCLE, UPPER EXTREMITY (WRVU 2.7) performed by Jayme Armstrong MD at [facility] OR ? ? PRO DEBRIDEMENT MUSCLE AND FASCIA 20 SQ CM/< Left 02/19/2022 DEBRIDEMENT SKIN, SUBCU, MUSCLE, LOWER EXTREMITY (WRVU 2.7) performed by Jayme Armstrong MD at [facility] OR ? ? PRO DEBRIDEMENT MUSCLE AND FASCIA 20 SQ CM/< Left 02/22/2022 DEBRIDEMENT SKIN, SUBCU, MUSCLE, LOWER EXTREMITY (WRVU 2.7) performed by Parrish Betancourt MD at [facility] OR ? ? PRO DEBRIDEMENT MUSCLE AND FASCIA 20 SQ CM/< Left 02/24/2022 DEBRIDEMENT SKIN, SUBCU, MUSCLE, LOWER EXTREMITY (WRVU 2.7) performed by Parrish Betancourt MD at [facility] OR ? ? PRO DEBRIDEMENT SUBCUTANEOUS TISSUE 20 SQCM/< Left 02/04/2022 DEBRIDEMENT SKIN AND SUBCU, UPPER EXTREMITY (WRVU 1.01) performed [facility] ? ? PRO DEBRIDEMENT SUBCUTANEOUS TISSUE 20 SQCM/< Left 02/08/2022 DEBRIDEMENT SKIN AND SUBCU, LOWER EXTREMITY (WRVU 1.01) performed by Jeanette Chatterjee MD at [facility] OR ? ? PRO DEBRIDEMENT SUBCUTANEOUS TISSUE 20 SQCM/< Left 02/09/2022 DEBRIDEMENT SKIN AND SUBCU, LOWER EXTREMITY (WRVU 1.01) performed by Jeanette Chatterjee MD at [facility] OR ? ? PRO DEBRIDEMENT SUBCUTANEOUS TISSUE 20 SQCM/< Left 02/11/2022 DEBRIDEMENT SKIN AND SUBCU, LOWER EXTREMITY (WRVU 1.01) performed by Parrish Betancourt MD at [facility] OR ? ? PRO DEBRIDEMENT SUBCUTANEOUS TISSUE 20 SQCM/< Left 02/13/2022 DEBRIDEMENT SKIN AND SUBCU, LOWER EXTREMITY (WRVU 1.01) performed by Jeanette Chatterjee MD at [facility] OR ? ? PRO DEBRIDEMENT SUBCUTANEOUS [...] 10.79) performed by Sigifredo Garcia MD at [facility] OR ??? PRO DECOMPRESS ANT/LAT+POST LEG CMPART Left 01/23/2022 FASCIOTOMY, LOWER LEG, ALL COMPARTMENTS (WRVU 7.82) performed by Sigifredo Garcia MD at [facility] OR ??? PRO DRESSING CHANGE UNDER ANESTHESIA Left 02/11/2022 DRESSING CHANGE (FOR OTHER THAN GALLOWAY) UNDER ANES., UPPER EXTREMITY (WRVU 0.86) performed by Parrish Betancourt MD at [facility] OR ??? PRO DRESSING CHANGE UNDER ANESTHESIA Left 02/13/2022 DRESSING CHANGE (FOR OTHER THAN GALLOWAY) UNDER ANES., UPPER EXTREMITY (WRVU 0.86) performed by Jeanette Chatterjee MD at [facility] OR ??? PRO DRESSING CHANGE UNDER ANESTHESIA Left 02/17/2022 DRESSING CHANGE (FOR OTHER THAN GALLOWAY) UNDER ANES., UPPER EXTREMITY (WRVU 0.86) performed by Jayme Armstrong MD at [facility] OR ??? PRO DRESSING CHANGE UNDER ANESTHESIA Left 02/19/2022 DRESSING CHANGE (FOR OTHER THAN GALLOWAY) UNDER ANES., UPPER EXTREMITY (WRVU 0.86) performed by Jayme Armstrong MD at [facility] OR ??? PRO DRESSING CHANGE UNDER ANESTHESIA Left 02/22/2022 DRESSING CHANGE (FOR OTHER THAN GALLOWAY) UNDER ANES., UPPER EXTREMITY (WRVU 0.86) performed by Parrish Betancourt MD at [facility] OR ??? PRO DRESSING CHANGE UNDER ANESTHESIA Left 02/24/2022 DRESSING CHANGE (FOR OTHER THAN GALLOWAY) UNDER ANES., UPPER EXTREMITY (WRVU 0.86) performed by Parrish Betancourt MD at [facility] OR ? ? PRO I&D DEEP ABSCESS BURSA/HEMATOMA THIGH/KNEE REGION Left 02/06/2022 INCISION & DRAINAGE ABSCESS OR HEMATOMA, THIGH, KNEE SUPERFICIAL (WRVU 6.78) performed by Jayme Armstrong MD at [facility] OR ??? PRO INCIS OF HIP/THIGH FASCIA Left 01/23/2022 @FASCIOTOMY,THIGH OR HIP FOR COMPARTMENT SYNDROME (WRVU 12.89) performed by Sigifredo Garcia MD at [facility] MAIN OR ??? PRO NEGATIVE PRESSURE WOUND THERAPY, LESS THAN OR EQUAL TO 50 SQCM Left 02/05/2022 DRESSING CHANGE (VAC ASSISTED) UP TO 50SQ.CM (WRVU 0.55) performed by Orville Hennessy MD at [facility] MAIN OR ??? PRO NEGATIVE PRESSURE WOUND THERAPY, LESS THAN OR EQUAL TO 50 SQCM Left 02/05/2022 DRESSING CHANGE (VAC ASSISTED) UP TO 50SQ.CM (WRVU 0.55) performed by Tom Valdovinos MD at [facility] MAIN OR ??? PRO NEGATIVE PRESSURE WOUND THERAPY, LESS THAN OR EQUAL TO 50 SQCM Left 02/08/2022 DRESSING CHANGE (VAC ASSISTED) UP TO 50SQ.CM (WRVU 0.55) performed by Jeanette Chatterjee MD at [facility] MAIN OR ??? PRO OPEN TREAT MANDIBLE CONDYLE FX, COMPL 04/27/2013 OPEN TREATMENT, COMPLEX MANDIBLE FX., MULTI APPROACH, W/ FIXATION performed by Kishore Neil MD at [facility] OR ??? PRO REVISE MEDIAN N/CARPAL TUNNEL SURG Left 01/23/2022 MEDIAN NERVE DECOMPRESSION (CARPAL TUNNEL RELEASE) (WRVU 4.97) performed by Sigifredo Garcia MD at [facility] MAIN OR ??? PRO SEC CLSR SURG WOUND/DEHSN EXTENSIVE/COMPLICATED Left 01/26/2022 SECONDARY CLOSURE SURGICAL WOUND OR DEHISCENCE, EXTENSIVE OR COMPLICATED, UPPER EXTREMITY (WRVU 12.04) performed by Sigifredo Garcia MD at [facility] MAIN OR Current Facility-Administered Medications: ??? epoetin salina-epbx (Retacrit) injection 20,000 units/mL 16,000 Units, 16,000 Units, Subcutaneous,Weekly, Nancy Chahal MD, 16,000 Units at 02/25/22 1738 ??? amLODIPine (Norvasc) tablet 10 mg, 10 [...] Elaine Dos Santos MD, 125 mg at 02/25/222153 ??? lactulose (Chronulac) (0.67 gram/mL) oral liquid [...] Birthdate: 1990 Admit date: 01/23/2022 Attending Physician: Allsion Kelly MD [facility] General Surgery History and Physical Alix Holland [...] Arteriogram Lower Extremity 02/06/2022 Nicole Vivas MD [facility] INTERVENTIONL RAD ??? PRO DEBRIDEMENT BONE EA ADDL 20 SQCM 02/08/2022 EACH ADDITIONAL 20 SQ CM, OR PART THEREOF (WRVU 1.8) performed by Jeanette Chatterjee MD at [facility] ? ? PRO DEBRIDEMENT BONE MUSCLE &/FASCIA 20 SQ CM/< Left 01/29/2022 DEBRIDEMENT SKIN, SUBCU, MUSCLE, BONE, LOWER EXTREMITY (WRVU 4.1) performed by Tom Valdovinos MD [facility] MAIN OR ? ? PRO DEBRIDEMENT BONE MUSCLE &/FASCIA 20 SQ CM/< Left 01/31/2022 DEBRIDEMENT SKIN, SUBCU, MUSCLE, BONE, LOWER EXTREMITY (WRVU 4.1) performed by Jose Branch MD at [facility] MAIN OR ? ? PRO DEBRIDEMENT BONE MUSCLE &/FASCIA 20 SQ CM/< Left 01/31/2022 DEBRIDEMENT SKIN, SUBCU, MUSCLE, BONE UPPER EXTREMITY (WRVU 4.1) performed by Jose Branch MDat [facility] MAIN OR ? ? PRO DEBRIDEMENT BONE MUSCLE &/FASCIA 20 SQ CM/< Left 02/02/2022 DEBRIDEMENT SKIN, SUBCU, MUSCLE, BONE UPPER EXTREMITY (WRVU 4.1) performed by Hina Starks MD at [facility] MAIN OR ? ? PRO DEBRIDEMENT BONE MUSCLE &/FASCIA 20 SQ CM/< Left 02/02/2022 DEBRIDEMENT SKIN, SUBCU, MUSCLE, BONE, LOWER EXTREMITY (WRVU 4.1) performed by Hina Starks MD at [facility] MAIN OR ? ? PRO DEBRIDEMENT MUSCLE AND FASCIA 20 SQ CM/< Left 01/26/2022 DEBRIDEMENT SKIN, SUBCU, MUSCLE, LOWER EXTREMITY (WRVU 2.7) performed by Sigifredo Garcia MD at [facility] MAIN OR ? ? PRO DEBRIDEMENT MUSCLE AND FASCIA 20 SQ CM/< Left 01/26/2022 DEBRIDEMENT SKIN, SUBCU, MUSCLE, UPPER EXTREMITY (WRVU 2.7) performed by Sigifredo Garcia MD at [facility] OR ? ? PRO DEBRIDEMENT MUSCLE AND FASCIA 20 SQ CM/< Left 02/05/2022 DEBRIDEMENT SKIN, SUBCU, MUSCLE, LOWER EXTREMITY (WRVU 2.7) performed by Tom Valdovinos MD at [facility] OR ? ? PRO DEBRIDEMENT MUSCLE AND FASCIA 20 SQ CM/< Left 02/04/2022 DEBRIDEMENT SKIN, SUBCU, MUSCLE, LOWER EXTREMITY (WRVU 2.7) performed by Sigifredo Garcia MD at [facility] OR ? ? PRO DEBRIDEMENT MUSCLE AND FASCIA 20 SQ CM/< Left 02/15/2022 DEBRIDEMENT SKIN, SUBCU, MUSCLE, UPPER EXTREMITY (WRVU 2.7) performed by Jayme Armstrong MD at [facility] OR ? ? PRO DEBRIDEMENT MUSCLE AND FASCIA 20 SQ CM/< Left 02/19/2022 DEBRIDEMENT SKIN, SUBCU, MUSCLE, LOWER EXTREMITY (WRVU 2.7) performed by Jayme Armstrong MD at [facility] OR ? ? PRO DEBRIDEMENT MUSCLE AND FASCIA 20 SQ CM/< Left 02/22/2022 DEBRIDEMENT SKIN, SUBCU, MUSCLE, LOWER EXTREMITY (WRVU 2.7) performed by Parrish Betancourt MD at [facility] OR ? ? PRO DEBRIDEMENT SUBCUTANEOUS TISSUE 20 SQCM/< Left 02/04/2022 DEBRIDEMENT SKIN AND SUBCU, UPPER EXTREMITY (WRVU 1.01) [facility] ? ? PRO DEBRIDEMENT SUBCUTANEOUS TISSUE 20 SQCM/< Left 02/08/2022 DEBRIDEMENT SKIN AND SUBCU, LOWER EXTREMITY (WRVU 1.01) performed by Jeanette Chatterjee MD at [facility] OR ? ? PRO DEBRIDEMENT SUBCUTANEOUS TISSUE 20 SQCM/< Left 02/09/2022 DEBRIDEMENT SKIN AND SUBCU, LOWER EXTREMITY (WRVU 1.01) performed by Jeanette Chatterjee MD at [facility] OR ? ? PRO DEBRIDEMENT SUBCUTANEOUS TISSUE 20 SQCM/< Left 02/11/2022 DEBRIDEMENT SKIN AND SUBCU, LOWER EXTREMITY (WRVU 1.01) performed by Parrish Betancourt MD at [facility] OR ? ? PRO DEBRIDEMENT SUBCUTANEOUS TISSUE 20 SQCM/< Left 02/13/2022 DEBRIDEMENT SKIN AND SUBCU, LOWER EXTREMITY (WRVU 1.01) performed by Jeanette Chatterjee MD at [facility] OR ? ? PRO DEBRIDEMENT SUBCUTANEOUS [...] 10.79) performed by Sigifredo Garcia MD at [facility] OR ??? PRO DECOMPRESS ANT/LAT+POST LEG CMPART Left 01/23/2022 FASCIOTOMY, LOWER LEG, ALL COMPARTMENTS (WRVU 7.82) performed by Sigifredo Garcia MD at [facility] OR ??? PRO DRESSING CHANGE UNDER ANESTHESIA Left 02/11/2022 DRESSING CHANGE (FOR OTHER THAN GALLOWAY) UNDER ANES., UPPER EXTREMITY (WRVU 0.86) performed by Parrish Betancourt MD at [facility] OR ??? PRO DRESSING CHANGE UNDER ANESTHESIA Left 02/13/2022 DRESSING CHANGE (FOR OTHER THAN GALLOWAY) UNDER ANES., UPPER EXTREMITY (WRVU 0.86) performed by Jeanette Chatterjee MD at [facility] OR ??? PRO DRESSING CHANGE UNDER ANESTHESIA Left 02/17/2022 DRESSING CHANGE (FOR OTHER THAN GALLOWAY) UNDER ANES., UPPER EXTREMITY (WRVU 0.86) performed by Jayme Armstrong MD at [facility] OR ??? PRO DRESSING CHANGE UNDER ANESTHESIA Left 02/19/2022 DRESSING CHANGE (FOR OTHER THAN GALLOWAY) UNDER ANES., UPPER EXTREMITY (WRVU 0.86) performed by Jayme Armstrong MD at [facility] OR ??? PRO DRESSING CHANGE UNDER ANESTHESIA Left 02/22/2022 DRESSING CHANGE (FOR OTHER THAN GALLOWAY) UNDER ANES., UPPER EXTREMITY (WRVU 0.86) performed by Parrish Betancourt MD at [facility] MAIN OR ? ? PRO I&D DEEP ABSCESS BURSA/HEMATOMA THIGH/KNEE REGION Left 02/06/2022 INCISION & DRAINAGE ABSCESS OR HEMATOMA, THIGH, KNEE SUPERFICIAL (WRVU 6.78) performed by Jayme Armstrong MD at [facility] OR ??? PRO INCIS OF HIP/THIGH FASCIA Left 01/23/2022 @FASCIOTOMY,THIGH OR HIP FOR COMPARTMENT SYNDROME (WRVU 12.89) performed by Sigifredo Garcia MD at [facility] OR ??? PRO NEGATIVE PRESSURE WOUND THERAPY, LESS THAN OR EQUAL TO 50 SQCM Left 02/05/2022 DRESSING CHANGE (VAC ASSISTED) UP TO 50SQ.CM (WRVU 0.55) performed by Orville Hennessy MD at [facility] OR ??? PRO NEGATIVE PRESSURE WOUND THERAPY, LESS THAN OR EQUAL TO 50 SQCM Left 02/05/2022 DRESSING CHANGE (VAC ASSISTED) UP TO 50SQ.CM (WRVU 0.55) performed by Tom Valdovinos MD at [facility] OR ??? PRO NEGATIVE PRESSURE WOUND THERAPY, LESS THAN OR EQUAL TO 50 SQCM Left 02/08/2022 DRESSING CHANGE (VAC ASSISTED) UP TO 50SQ.CM (WRVU 0.55) performed by Jeanette Chatterjee MD at [facility] OR ??? PRO OPEN TREAT MANDIBLE CONDYLE FX, COMPL 04/27/2013 OPEN TREATMENT, COMPLEX MANDIBLE FX., MULTI APPROACH, W/ FIXATION performed by Kishore Neil MD at [facility] OR ??? PRO REVISE MEDIAN N/CARPAL TUNNEL SURG Left 01/23/2022 MEDIAN NERVE DECOMPRESSION (CARPAL TUNNEL RELEASE) (WRVU 4.97) performed by Sigifredo Garcia MD at [facility] OR ??? PRO SEC CLSR SURG WOUND/DEHSN EXTENSIVE/COMPLICATED Left 01/26/2022 SECONDARY CLOSURE SURGICAL WOUND OR DEHISCENCE, EXTENSIVE OR COMPLICATED, UPPER EXTREMITY (WRVU 12.04) performed by Sigifredo Garcia MD at [facility] OR Current Facility-Administered Medications: ??? amLODIPine (Norvasc) [...] Oral, Daily, Kaitlyn Rock MD, 250 mgat 02/23/22934 ??? miconazole nitrate (Remedy Phytoplex) 2 % ointment, , Topical (Top), BID, Kaitlyn Rock MD, Given at 02/23/222022 ??? vitamin B Complex-vitamin C-folic Acid (Eileen-scott) 0.8 mg per tablet 1 tablet, 1 tablet, Oral, Daily, Kaitlyn Rock MD, 1 tablet at 02/23/2235 ??? [COMPLETED] vancomycin (Vancocin) capsule 125 mg, [...] ??F) -- 18 (!) 153/105 96 % 02/23/22 1211 -- -- 18 (!) 141/106 [...] 01/23/2022 Attending Physician: Gela Novak MD [facility] General Surgery History and Physical Alix Holland [...] 7.3 this AM - Dialysis transitioned to T//Sat per Nephrology - Remains afebrile, HDS - [...] Arteriogram Lower Extremity 02/06/2022 Nicole Vivas MD [facility] INTERVENTIONL RAD ??? PRO DEBRIDEMENT BONE EA ADDL 20 SQCM 02/08/2022 EACH ADDITIONAL 20 SQ CM, OR PART THEREOF (WRVU 1.8) performed by Jeanette Chatterjee MD at [facility] PAIGE ? ? PRO DEBRIDEMENT BONE MUSCLE &/FASCIA 20 SQ CM/< Left 01/29/2022 DEBRIDEMENT SKIN, SUBCU, MUSCLE, BONE, LOWER EXTREMITY (WRVU 4.1) performed by Tom Valdovinos MD [facility] MAIN OR ? ? PRO DEBRIDEMENT BONE MUSCLE &/FASCIA 20 SQ CM/< Left 01/31/2022 DEBRIDEMENT SKIN, SUBCU, MUSCLE, BONE, LOWER EXTREMITY (WRVU 4.1) performed by Jose Branch MD at [facility] MAIN OR ? ? PRO DEBRIDEMENT BONE MUSCLE &/FASCIA 20 SQ CM/< Left 01/31/2022 DEBRIDEMENT SKIN, SUBCU, MUSCLE, BONE UPPER EXTREMITY (WRVU 4.1) performed by Jose Branch MDat [facility] MAIN OR ? ? PRO DEBRIDEMENT BONE MUSCLE &/FASCIA 20 SQ CM/< Left 02/02/2022 DEBRIDEMENT SKIN, SUBCU, MUSCLE, BONE UPPER EXTREMITY (WRVU 4.1) performed by Hina Starks MD at [facility] MAIN OR ? ? PRO DEBRIDEMENT BONE MUSCLE &/FASCIA 20 SQ CM/< Left 02/02/2022 DEBRIDEMENT SKIN, SUBCU, MUSCLE, BONE, LOWER EXTREMITY (WRVU 4.1) performed by Hina Starks MD at [facility] MAIN OR ? ? PRO DEBRIDEMENT MUSCLE AND FASCIA 20 SQ CM/< Left 01/26/2022 DEBRIDEMENT SKIN, SUBCU, MUSCLE, LOWER EXTREMITY (WRVU 2.7) performed by Sigifredo Garcia MD at [facility] MAIN OR ? ? PRO DEBRIDEMENT MUSCLE AND FASCIA 20 SQ CM/< Left 01/26/2022 DEBRIDEMENT SKIN, SUBCU, MUSCLE, UPPER EXTREMITY (WRVU 2.7) performed by Sigifredo Garcia MD at [facility] MAIN OR ? ? PRO DEBRIDEMENT MUSCLE AND FASCIA 20 SQ CM/< Left 02/05/2022 DEBRIDEMENT SKIN, SUBCU, MUSCLE, LOWER EXTREMITY (WRVU 2.7) performed by Tom Valdovinos MD at [facility] MAIN OR ? ? PRO DEBRIDEMENT MUSCLE AND FASCIA 20 SQ CM/< Left 02/04/2022 DEBRIDEMENT SKIN, SUBCU, MUSCLE, LOWER EXTREMITY (WRVU 2.7) performed by Sigifredo Garcia MD at [facility] OR ? ? PRO DEBRIDEMENT MUSCLE AND FASCIA 20 SQ CM/< Left 02/15/2022 DEBRIDEMENT SKIN, SUBCU, MUSCLE, UPPER EXTREMITY (WRVU 2.7) performed by Jayme Armstrong MD at [facility] OR ? ? PRO DEBRIDEMENT MUSCLE AND FASCIA 20 SQ CM/< Left 02/19/2022 DEBRIDEMENT SKIN, SUBCU, MUSCLE, LOWER EXTREMITY (WRVU 2.7) performed by Jayme Armstrong MD at [facility] OR ? ? PRO DEBRIDEMENT SUBCUTANEOUS TISSUE 20 SQCM/< Left 02/04/2022 DEBRIDEMENT SKIN AND SUBCU, UPPER EXTREMITY (WRVU 1.01) [facility] ? ? PRO DEBRIDEMENT SUBCUTANEOUS TISSUE 20 SQCM/< Left 02/08/2022 DEBRIDEMENT SKIN AND SUBCU, LOWER EXTREMITY (WRVU 1.01) performed by Jeanette Chatterjee MD at [facility] OR ? ? PRO DEBRIDEMENT SUBCUTANEOUS TISSUE 20 SQCM/< Left 02/09/2022 DEBRIDEMENT SKIN AND SUBCU, LOWER EXTREMITY (WRVU 1.01) performed by Jeanette Chatterjee MD at [facility] OR ? ? PRO DEBRIDEMENT SUBCUTANEOUS TISSUE 20 SQCM/< Left 02/11/2022 DEBRIDEMENT SKIN AND SUBCU, LOWER EXTREMITY (WRVU 1.01) performed by Parrish Betancourt MD at [facility] OR ? ? PRO DEBRIDEMENT SUBCUTANEOUS TISSUE 20 SQCM/< Left 02/13/2022 DEBRIDEMENT SKIN AND SUBCU, LOWER EXTREMITY (WRVU 1.01) performed by Jeanette Chatterjee MD at [facility] OR ? ? PRO DEBRIDEMENT SUBCUTANEOUS [...] 10.79) performed by Sigifredo Garcia MD at [facility] OR ??? PRO DECOMPRESS ANT/LAT+POST LEG CMPART Left 01/23/2022 FASCIOTOMY, LOWER LEG, ALL COMPARTMENTS (WRVU 7.82) performed by Sigifredo Garcia MD at [facility] OR ??? PRO DRESSING CHANGE UNDER ANESTHESIA Left 02/11/2022 DRESSING CHANGE (FOR OTHER THAN GALLOWAY) UNDER ANES., UPPER EXTREMITY (WRVU 0.86) performed by Parrish Betancourt MD at [facility] OR ??? PRO DRESSING CHANGE UNDER ANESTHESIA Left 02/13/2022 DRESSING CHANGE (FOR OTHER THAN GALLOWAY) UNDER ANES., UPPER EXTREMITY (WRVU 0.86) performed by Jeanette Chatterjee MD at [facility] OR ??? PRO DRESSING CHANGE UNDER ANESTHESIA Left 02/17/2022 DRESSING CHANGE (FOR OTHER THAN GALLOWAY) UNDER ANES., UPPER EXTREMITY (WRVU 0.86) performed by Jayme Armstrong MD at [facility] OR ??? PRO DRESSING CHANGE UNDER ANESTHESIA Left 02/19/2022 DRESSING CHANGE (FOR OTHER THAN GALLOWAY) UNDER ANES., UPPER EXTREMITY (WRVU 0.86) performed by Jayme Armstrong MD at [facility] OR ? ? PRO I&D DEEP ABSCESS BURSA/HEMATOMA THIGH/KNEE REGION Left 02/06/2022 INCISION & DRAINAGE ABSCESS OR HEMATOMA, THIGH, KNEE SUPERFICIAL (WRVU 6.78) performed by Jayme Armstrong MD at [facility] OR ??? PRO INCIS OF HIP/THIGH FASCIA Left 01/23/2022 @FASCIOTOMY,THIGH OR HIP FOR COMPARTMENT SYNDROME (WRVU 12.89) performed by Sigifredo Garcia MD at [facility] OR ??? PRO NEGATIVE PRESSURE WOUND THERAPY, LESS THAN OR EQUAL TO 50 SQCM Left 02/05/2022 DRESSING CHANGE (VAC ASSISTED) UP TO 50SQ.CM (WRVU 0.55) performed by Orville Hennessy MD at [facility] OR ??? PRO NEGATIVE PRESSURE WOUND THERAPY, LESS THAN OR EQUAL TO 50 SQCM Left 02/05/2022 DRESSING CHANGE (VAC ASSISTED) UP TO 50SQ.CM (WRVU 0.55) performed by Tom Valdovinos MD at [facility] MAIN OR ??? PRO NEGATIVE PRESSURE WOUND THERAPY, LESS THAN OR EQUAL TO 50 SQCM Left 02/08/2022 DRESSING CHANGE (VAC ASSISTED) UP TO 50SQ.CM (WRVU 0.55) performed by Jeanette Chatterjee MD at [facility] MAIN OR ??? PRO OPEN TREAT MANDIBLE CONDYLE FX, COMPL 04/27/2013 OPEN TREATMENT, COMPLEX MANDIBLE FX., MULTI APPROACH, W/ FIXATION performed by Kishore Neil MD at [facility] MAIN OR ??? PRO REVISE MEDIAN N/CARPAL TUNNEL SURG Left 01/23/2022 MEDIAN NERVE DECOMPRESSION (CARPAL TUNNEL RELEASE) (WRVU 4.97) performed by Sigifredo Garcia MD at [facility] MAIN OR ??? PRO SEC CLSR SURG WOUND/DEHSN EXTENSIVE/COMPLICATED Left 01/26/2022 SECONDARY CLOSURE SURGICAL WOUND OR DEHISCENCE, EXTENSIVE OR COMPLICATED, UPPER EXTREMITY (WRVU 12.04) performed by Sigifredo Garcia MD at [facility] MAIN OR Current Facility-Administered Medications: ??? heparin (porcine) (1,000 units/mL) injection 1,000-10,000 Units, 1,000- 10,000 Units, Intercatheter, Once in dialysis PRN, Kaitlyn Rock MD ??? heparin (porcine) (5,000 units/1 mL) subcutaneous injection 5,000 Units, 5,000 Units, Subcutaneous, 2 times per day, Gina Montaño MD, 5,000 Units at 02/21/22 2101 ??? amLODIPine (Norvasc) tablet 5 mg, 5 [...] BID, Kaitlyn Rock MD, 2 tablet at 02/21/221 ??? folic acid (Folvite) tablet 1,000 mcg, [...] (!) 104 18 (!) 150/109 -- -- 02/21/222015 37.1 ??C (98.8 ??F) -- 20 (!) [...] 01/23/2022 Attending Physician: Gela Novak MD [facility] General Surgery History and Physical Alix Holland [...] Arteriogram Lower Extremity 02/06/2022 Nicole Vivas MD [facility] INTERVENTIONL RAD ??? PRO DEBRIDEMENT BONE EA ADDL 20 SQCM 02/08/2022 EACH ADDITIONAL 20 SQ CM, OR PART THEREOF (WRVU 1.8) performed by Jeanette Chatterjee MD at [facility] ? ? PRO DEBRIDEMENT BONE MUSCLE &/FASCIA 20 SQ CM/< Left 01/29/2022 DEBRIDEMENT SKIN, SUBCU, MUSCLE, BONE, LOWER EXTREMITY (WRVU 4.1) performed by Tom Valdovinos MD [facility] MAIN OR ? ? PRO DEBRIDEMENT BONE MUSCLE &/FASCIA 20 SQ CM/< Left 01/31/2022 DEBRIDEMENT SKIN, SUBCU, MUSCLE, BONE, LOWER EXTREMITY (WRVU 4.1) performed by Jose Branch MD at [facility] MAIN OR ? ? PRO DEBRIDEMENT BONE MUSCLE &/FASCIA 20 SQ CM/< Left 01/31/2022 DEBRIDEMENT SKIN, SUBCU, MUSCLE, BONE UPPER EXTREMITY (WRVU 4.1) performed by Jose Branch MDat [facility] MAIN OR ? ? PRO DEBRIDEMENT BONE MUSCLE &/FASCIA 20 SQ CM/< Left 02/02/2022 DEBRIDEMENT SKIN, SUBCU, MUSCLE, BONE UPPER EXTREMITY (WRVU 4.1) performed by Hina Starks MD at [facility] MAIN OR ? ? PRO DEBRIDEMENT BONE MUSCLE &/FASCIA 20 SQ CM/< Left 02/02/2022 DEBRIDEMENT SKIN, SUBCU, MUSCLE, BONE, LOWER EXTREMITY (WRVU 4.1) performed by Hina Starks MD at [facility] MAIN OR ? ? PRO DEBRIDEMENT MUSCLE AND FASCIA 20 SQ CM/< Left 01/26/2022 DEBRIDEMENT SKIN, SUBCU, MUSCLE, LOWER EXTREMITY (WRVU 2.7) performed by Sigifredo Garcia MD at [facility] MAIN OR ? ? PRO DEBRIDEMENT MUSCLE AND FASCIA 20 SQ CM/< Left 01/26/2022 DEBRIDEMENT SKIN, SUBCU, MUSCLE, UPPER EXTREMITY (WRVU 2.7) performed by Sigifredo Garcia MD at [facility] MAIN OR ? ? PRO DEBRIDEMENT MUSCLE AND FASCIA 20 SQ CM/< Left 02/05/2022 DEBRIDEMENT SKIN, SUBCU, MUSCLE, LOWER EXTREMITY (WRVU 2.7) performed by Tom Valdovinos MD at [facility] OR ? ? PRO DEBRIDEMENT MUSCLE AND FASCIA 20 SQ CM/< Left 02/04/2022 DEBRIDEMENT SKIN, SUBCU, MUSCLE, LOWER EXTREMITY (WRVU 2.7) performed by Sigifredo Garcia MD at [facility] OR ? ? PRO DEBRIDEMENT MUSCLE AND FASCIA 20 SQ CM/< Left 02/15/2022 DEBRIDEMENT SKIN, SUBCU, MUSCLE, UPPER EXTREMITY (WRVU 2.7) performed by Jayme Armstrong MD at [facility] OR ? ? PRO DEBRIDEMENT SUBCUTANEOUS TISSUE 20 SQCM/< Left 02/04/2022 DEBRIDEMENT SKIN AND SUBCU, UPPER EXTREMITY (WRVU 1.01) [facility] ? ? PRO DEBRIDEMENT SUBCUTANEOUS TISSUE 20 SQCM/< Left 02/08/2022 DEBRIDEMENT SKIN AND SUBCU, LOWER EXTREMITY (WRVU 1.01) performed by Jeanette Chatterjee MD at [facility] OR ? ? PRO DEBRIDEMENT SUBCUTANEOUS TISSUE 20 SQCM/< Left 02/09/2022 DEBRIDEMENT SKIN AND SUBCU, LOWER EXTREMITY (WRVU 1.01) performed by Jeanette Chatterjee MD at [facility] OR ? ? PRO DEBRIDEMENT SUBCUTANEOUS TISSUE 20 SQCM/< Left 02/11/2022 DEBRIDEMENT SKIN AND SUBCU, LOWER EXTREMITY (WRVU 1.01) performed by Parrish Betancourt MD at [facility] OR ? ? PRO DEBRIDEMENT SUBCUTANEOUS TISSUE 20 SQCM/< Left 02/13/2022 DEBRIDEMENT SKIN AND SUBCU, LOWER EXTREMITY (WRVU 1.01) performed by Jeanette Chatterjee MD at [facility] OR ? ? PRO DEBRIDEMENT SUBCUTANEOUS [...] 10.79) performed by Sigifredo Garcia MD at [facility] OR ??? PRO DECOMPRESS ANT/LAT+POST LEG CMPART Left 01/23/2022 FASCIOTOMY, LOWER LEG, ALL COMPARTMENTS (WRVU 7.82) performed by Sigifredo Garcia MD at [facility] OR ??? PRO DRESSING CHANGE UNDER ANESTHESIA Left 02/11/2022 DRESSING CHANGE (FOR OTHER THAN GALLOWAY) UNDER ANES., UPPER EXTREMITY (WRVU 0.86) performed by Parrish Betancourt MD at [facility] OR ??? PRO DRESSING CHANGE UNDER ANESTHESIA Left 02/13/2022 DRESSING CHANGE (FOR OTHER THAN GALLOWAY) UNDER ANES., UPPER EXTREMITY (WRVU 0.86) performed by Jeanette Chatterjee MD at [facility] OR ??? PRO DRESSING CHANGE UNDER ANESTHESIA Left 02/17/2022 DRESSING CHANGE (FOR OTHER THAN GALLOWAY) UNDER ANES., UPPER EXTREMITY (WRVU 0.86) performed by Jayme Armstrong MD at [facility] OR ? ? PRO I&D DEEP ABSCESS BURSA/HEMATOMA THIGH/KNEE REGION Left 02/06/2022 INCISION & DRAINAGE ABSCESS OR HEMATOMA, THIGH, KNEE SUPERFICIAL (WRVU 6.78) performed by Jayme Armstrong MD at [facility] OR ??? PRO INCIS OF HIP/THIGH FASCIA Left 01/23/2022 @FASCIOTOMY,THIGH OR HIP FOR COMPARTMENT SYNDROME (WRVU 12.89) performed by Sigifredo Garcia MD at [facility] OR ??? PRO NEGATIVE PRESSURE WOUND THERAPY, LESS THAN OR EQUAL TO 50 SQCM Left 02/05/2022 DRESSING CHANGE (VAC ASSISTED) UP TO 50SQ.CM (WRVU 0.55) performed by Orville Hennessy MD at [facility] OR ??? PRO NEGATIVE PRESSURE WOUND THERAPY, LESS THAN OR EQUAL TO 50 SQCM Left 02/05/2022 DRESSING CHANGE (VAC ASSISTED) UP TO 50SQ.CM (WRVU 0.55) performed by Tom Valdovinos MD at [facility] OR ??? PRO NEGATIVE PRESSURE WOUND THERAPY, LESS THAN OR EQUAL TO 50 SQCM Left 02/08/2022 DRESSING CHANGE (VAC ASSISTED) UP TO 50SQ.CM (WRVU 0.55) performed by Jeanette Chatterjee MD at [facility] MAIN OR ??? PRO OPEN TREAT MANDIBLE CONDYLE FX, COMPL 04/27/2013 OPEN TREATMENT, COMPLEX MANDIBLE FX., MULTI APPROACH, W/ FIXATION performed by Kishore Neil MD at [facility] MAIN OR ??? PRO REVISE MEDIAN N/CARPAL TUNNEL SURG Left 01/23/2022 MEDIAN NERVE DECOMPRESSION (CARPAL TUNNEL RELEASE) (WRVU 4.97) performed by Sigifredo Garcia MD at [facility] MAIN OR ??? PRO SEC CLSR SURG WOUND/DEHSN EXTENSIVE/COMPLICATED Left 01/26/2022 SECONDARY CLOSURE SURGICAL WOUND OR DEHISCENCE, EXTENSIVE OR COMPLICATED, UPPER EXTREMITY (WRVU 12.04) performed by Sigifredo Garcia MD at [facility] MAIN OR Current Facility-Administered Medications: ??? amLODIPine [...] Collette Dye MD, 100 mg at 02/18/22 08 ??? acetaminophen (Tylenol) tablet 1,000 mg, 1,000 [...] 01/23/2022 Attending Physician: Gela Novak MD [facility] General Surgery History and Physical Alix Holland [...] 01/23/2022 Attending Physician: Parrish Betancourt MD [facility] General Surgery History and Physical Alix Holland [...] Arteriogram Lower Extremity 02/06/2022 Nicole Vivas MD [facility] INTERVENTIONL RAD ??? PRO DEBRIDEMENT BONE EA ADDL 20 SQCM 02/08/2022 EACH ADDITIONAL 20 SQ CM, OR PART THEREOF (WRVU 1.8) performed by Jeanette Chatterjee MD at [facility] ? ? PRO DEBRIDEMENT BONE MUSCLE &/FASCIA 20 SQ CM/< Left 01/29/2022 DEBRIDEMENT SKIN, SUBCU, MUSCLE, BONE, LOWER EXTREMITY (WRVU 4.1) performed by Tom Valdovinos MD [facility] MAIN OR ? ? PRO DEBRIDEMENT BONE MUSCLE &/FASCIA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 0.55) performed by Orville Hennessy MD at [facility] OR ??? PRO NEGATIVE PRESSURE WOUND THERAPY, LESS THAN OR EQUAL TO 50 SQCM Left 02/05/2022 DRESSING CHANGE (VAC ASSISTED) UP TO 50SQ.CM (WRVU 0.55) performed by Tom Valdovinos MD at [facility] OR ??? PRO OPEN TREAT MANDIBLE CONDYLE FX, COMPL 04/27/2013 OPEN TREATMENT, COMPLEX MANDIBLE FX., MULTI APPROACH, W/ FIXATION performed by Kishore Neil MD at [facility] OR ??? PRO REVISE MEDIAN N/CARPAL TUNNEL SURG Left 01/23/2022 MEDIAN NERVE DECOMPRESSION (CARPAL TUNNEL RELEASE) (WRVU 4.97) performed by Sigifredo Garcia MD at [facility] MAIN OR ??? PRO SEC CLSR SURG WOUND/DEHSN EXTENSIVE/COMPLICATED Left 01/26/2022 SECONDARY CLOSURE SURGICAL WOUND OR DEHISCENCE, EXTENSIVE OR COMPLICATED, UPPER EXTREMITY (WRVU 12.04) performed by Sigifredo Garcia MD at [facility] MAIN OR MEDICATIONS: Medication Sig ??? predniSONE [...] CL -- 91* 91* 89* CO2 -- 24 BUN -- 44* 44* 42* CREATININE -- [...] Jones MD 02/06/2022 General Surgery consult pager #[phone] I saw and evaluated the patient with [...] Left lower extremity angiogram via righ t POLYTECHNIC REGISTRAR access. Past Medical/Surgical History: Patient Active Problem List Diagnosis Code ??? Mandible fracture S02.609A ??? Smoker F17.200 ??? Chest pain R07.9 ??? Angioedema T78.3XXA ??? Cardiac arrest I46.9 ? ? LIZESHAMAR compartment syndrome s/p fasciotimies, [...] (WRVU 4.1) performed by Tom Valdovinos MD [facility] MAIN OR ? ? PRO DEBRIDEMENT BONE MUSCLE &/FASCIA 20 SQ CM/< Left 01/31/2022 DEBRIDEMENT SKIN, SUBCU, MUSCLE, BONE, LOWER EXTREMITY (WRVU 4.1) performed by Jose Branch MD at [facility] MAIN OR ? ? PRO DEBRIDEMENT BONE MUSCLE &/FASCIA 20 SQ CM/< Left 01/31/2022 DEBRIDEMENT SKIN, SUBCU, MUSCLE, BONE UPPER EXTREMITY (WRVU 4.1) performed by Jose Branch MDat [facility] MAIN OR ? ? PRO DEBRIDEMENT BONE MUSCLE &/FASCIA 20 SQ CM/< Left 02/02/2022 DEBRIDEMENT SKIN, SUBCU, MUSCLE, BONE UPPER EXTREMITY (WRVU 4.1) performed by Hina Starks MD at [facility] MAIN OR ? ? PRO DEBRIDEMENT BONE MUSCLE &/FASCIA 20 SQ CM/< Left 02/02/2022 DEBRIDEMENT SKIN, SUBCU, MUSCLE, BONE, LOWER EXTREMITY (WRVU 4.1) performed by Hina Starks MD at [facility] MAIN OR ? ? PRO DEBRIDEMENT MUSCLE AND FASCIA 20 SQ CM/< Left 01/26/2022 DEBRIDEMENT SKIN, SUBCU, MUSCLE, LOWER EXTREMITY (WRVU 2.7) performed by Sigifredo Garcia MD at [facility] MAIN OR ? ? PRO DEBRIDEMENT MUSCLE AND FASCIA 20 SQ CM/< Left 01/26/2022 DEBRIDEMENT SKIN, SUBCU, MUSCLE, UPPER EXTREMITY (WRVU 2.7) performed by Sigifredo Garcia MD at [facility] MAIN OR ? ? PRO DEBRIDEMENT MUSCLE AND FASCIA 20 SQ CM/< Left 02/05/2022 DEBRIDEMENT SKIN, SUBCU, MUSCLE, LOWER EXTREMITY (WRVU 2.7) performed by Tom Valdovinos MD at [facility] MAIN OR ??? PRO DECOMP FOREARM, 2 COMPART, W/O DEBRIDE Left 01/23/2022 FASCIOTOMY; FOREARM AND\OR WRIST, FLEXOR & EXTENS. COMP (WRVU 10.79) performed by Sigifredo Garcia MD at [facility] MAIN OR ??? PRO DECOMPRESS ANT/LAT+POST LEG CMPART Left 01/23/2022 FASCIOTOMY, LOWER LEG, ALL COMPARTMENTS (WRVU 7.82) performed by Sigifredo Garcia MD at [facility] MAIN OR ??? PRO INCIS OF HIP/THIGH FASCIA Left 01/23/2022 @FASCIOTOMY,THIGH OR HIP FOR COMPARTMENT SYNDROME (WRVU 12.89) performed by Sigifredo Garcia MD at [facility] MAIN OR ??? PRO NEGATIVE PRESSURE WOUND THERAPY, LESS THAN OR EQUAL TO 50 SQCM Left 02/05/2022 DRESSING CHANGE (VAC ASSISTED) UP TO 50SQ.CM (WRVU 0.55) performed by Orville Hennessy MD at [facility] MAIN OR ??? PRO NEGATIVE PRESSURE WOUND THERAPY, LESS THAN OR EQUAL TO 50 SQCM Left 02/05/2022 DRESSING CHANGE (VAC ASSISTED) UP TO 50SQ.CM (WRVU 0.55) performed by Tom Valdovinos MD at [facility] OR ??? PRO OPEN TREAT MANDIBLE CONDYLE FX, COMPL 04/27/2013 OPEN TREATMENT, COMPLEX MANDIBLE FX., MULTI APPROACH, W/ FIXATION performed by Kishore Neil MD at [facility] OR ??? PRO REVISE MEDIAN N/CARPAL TUNNEL SURG Left 01/23/2022 MEDIAN NERVE DECOMPRESSION (CARPAL TUNNEL RELEASE) (WRVU 4.97) performed by Sigifredo Garcia MD at [facility] MAIN OR ??? PRO SEC CLSR SURG WOUND/DEHSN EXTENSIVE/COMPLICATED Left 01/26/2022 SECONDARY CLOSURE SURGICAL WOUND OR DEHISCENCE, EXTENSIVE OR COMPLICATED, UPPER EXTREMITY (WRVU 12.04) performed by Sigifredo Garcia MD at [facility] OR Medications: No current facility-administered medications [...] for procedure: Lidocaine Planned access site: Right POLYTECHNIC REGISTRAR Position: Supine Consent: -- (2 Physician consent, [...] (WRVU 4.1) performed by Tom Valdovinos MD [facility] MAIN OR ? ? PRO DEBRIDEMENT BONE MUSCLE &/FASCIA 20 SQ CM/< Left 01/31/2022 DEBRIDEMENT SKIN, SUBCU, MUSCLE, BONE, LOWER EXTREMITY (WRVU 4.1) performed by Jose Branch MD at [facility] MAIN OR ? ? PRO DEBRIDEMENT BONE MUSCLE &/FASCIA 20 SQ CM/< Left 01/31/2022 DEBRIDEMENT SKIN, SUBCU, MUSCLE, BONE UPPER EXTREMITY (WRVU 4.1) performed by Jose Branch MDat [facility] MAIN OR ? ? PRO DEBRIDEMENT BONE MUSCLE &/FASCIA 20 SQ CM/< Left 02/02/2022 DEBRIDEMENT SKIN, SUBCU, MUSCLE, BONE UPPER EXTREMITY (WRVU 4.1) performed by Hina Starks MD at [facility] MAIN OR ? ? PRO DEBRIDEMENT BONE MUSCLE &/FASCIA 20 SQ CM/< Left 02/02/2022 DEBRIDEMENT SKIN, SUBCU, MUSCLE, BONE, LOWER EXTREMITY (WRVU 4.1) performed by Hina Straks MD at [facility] MAIN OR ? ? PRO DEBRIDEMENT MUSCLE AND FASCIA 20 SQ CM/< Left 01/26/2022 DEBRIDEMENT SKIN, SUBCU, MUSCLE, LOWER EXTREMITY (WRVU 2.7) performed by Sigifredo Garcia MD at [facility] MAIN OR ? ? PRO DEBRIDEMENT MUSCLE AND FASCIA 20 SQ CM/< Left 01/26/2022 DEBRIDEMENT SKIN, SUBCU, MUSCLE, UPPER EXTREMITY (WRVU 2.7) performed by Sigifredo Garcia MD at [facility] MAIN OR ??? PRO DECOMP FOREARM, 2 COMPART, W/O DEBRIDE Left 01/23/2022 FASCIOTOMY; FOREARM AND\OR WRIST, FLEXOR & EXTENS. COMP (WRVU 10.79) performed by Sigifredo Garcia MD at [facility] MAIN OR ??? PRO DECOMPRESS ANT/LAT+POST LEG CMPART Left 01/23/2022 FASCIOTOMY, LOWER LEG, ALL COMPARTMENTS (WRVU 7.82) performed by Sigifredo Garcia MD at [facility] OR ??? PRO INCIS OF HIP/THIGH FASCIA Left 01/23/2022 @FASCIOTOMY,THIGH OR HIP FOR COMPARTMENT SYNDROME (WRVU 12.89) performed by Sigifredo Garcia MD at [facility] OR ??? PRO OPEN TREAT MANDIBLE CONDYLE FX, COMPL 04/27/2013 OPEN TREATMENT, COMPLEX MANDIBLE FX., MULTI APPROACH, W/ FIXATION performed by Kishore Neil MD at [facility] OR ??? PRO REVISE MEDIAN N/CARPAL TUNNEL SURG Left 01/23/2022 MEDIAN NERVE DECOMPRESSION (CARPAL TUNNEL RELEASE) (WRVU 4.97) performed by Sigifredo Garcia MD at [facility] OR ??? PRO SEC CLSR SURG WOUND/DEHSN EXTENSIVE/COMPLICATED Left 01/26/2022 SECONDARY CLOSURE SURGICAL WOUND OR DEHISCENCE, EXTENSIVE OR COMPLICATED, UPPER EXTREMITY (WRVU 12.04) performed by Sigifredo Garcia MD at [facility] MAIN OR Prior To Admission Medications: Medications [...] mg/mL) in sodium chloride 0.9% 50 mL [employer]ACH[employer] infusion ??? HYDROmorphone (Dilaudid) (1 mg/mL) injection syringe 1 mg ??? sevelamer carbonate (Renvela) tablet 1,600 mg ??? diphenhydrAMINE (Benadryl) (50 mg/mL) injection 25 mg ??? prochlorperazine (Compazine) (5 mg/mL) injection 5 mg ??? ondansetron (pf) (Zofran) (2 mg/mL) injection 4 mg ??? naloxone (Narcan) (0.4 mg/mL) injection 0.2 mg ??? TEACHER AIDE [employer]ERICAL hutton ??? HYDROmorphone (mg) TEACHER AIDE CLERICAL shift total and Settings verification ??? vancomycin [...] Value Ref Range T&S only valid at [facility] [place] [place] Hosp Prepare RBC Result Value Ref Range [...] access should pressors be required. Will consider [facility] placement for continued lab draws after arrival to the SICU. Orthopedic surgery with no immediate plans for RTOR, however will keep NPO in case emergent take back required. 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 He is admitted tonight to the SICU due to hemorrhagic shock in the setting of ongoing bleeding from a LLE fasciotomy. He was admitted initially to the MICU 01/23 s/p VT arrest at [facility] in the setting ofbeing down for [...] (WRVU 4.1) performed by Tom Valdovinos MD [facility] MAIN OR ? ? PRO DEBRIDEMENT BONE MUSCLE &/FASCIA 20 SQ CM/< Left 01/31/2022 DEBRIDEMENT SKIN, SUBCU, MUSCLE, BONE, LOWER EXTREMITY (WRVU 4.1) performed by Jose Branch MD at [facility] MAIN OR ? ? PRO DEBRIDEMENT BONE MUSCLE &/FASCIA 20 SQ CM/< Left 01/31/2022 DEBRIDEMENT SKIN, SUBCU, MUSCLE, BONE UPPER EXTREMITY (WRVU 4.1) performed by Jose Branch MDat [facility] MAIN OR ? ? PRO DEBRIDEMENT BONE MUSCLE &/FASCIA 20 SQ CM/< Left 02/02/2022 DEBRIDEMENT SKIN, SUBCU, MUSCLE, BONE UPPER EXTREMITY (WRVU 4.1) performed by Hina Starks MD at [facility] MAIN OR ? ? PRO DEBRIDEMENT BONE MUSCLE &/FASCIA 20 SQ CM/< Left 02/02/2022 DEBRIDEMENT SKIN, SUBCU, MUSCLE, BONE, LOWER EXTREMITY (WRVU 4.1) performed by Hina Starks MD at [facility] MAIN OR ? ? PRO DEBRIDEMENT MUSCLE AND FASCIA 20 SQ CM/< Left 01/26/2022 DEBRIDEMENT SKIN, SUBCU, MUSCLE, LOWER EXTREMITY (WRVU 2.7) performed by Sigifredo Garcia MD at [facility] MAIN OR ? ? PRO DEBRIDEMENT MUSCLE AND FASCIA 20 SQ CM/< Left 01/26/2022 DEBRIDEMENT SKIN, SUBCU, MUSCLE, UPPER EXTREMITY (WRVU 2.7) performed by Sigifredo Garcia MD at [facility] MAIN OR ??? PRO DECOMP FOREARM, 2 COMPART, W/O DEBRIDE Left 01/23/2022 FASCIOTOMY; FOREARM AND\OR WRIST, FLEXOR & EXTENS. COMP (WRVU 10.79) performed by Sigifredo Garcia MD at [facility] MAIN OR ??? PRO DECOMPRESS ANT/LAT+POST LEG CMPART Left 01/23/2022 FASCIOTOMY, LOWER LEG, ALL COMPARTMENTS (WRVU 7.82) performed by Sigifredo Garcia MD at [facility] MAIN OR ??? PRO INCIS OF HIP/THIGH FASCIA Left 01/23/2022 @FASCIOTOMY,THIGH OR HIP FOR COMPARTMENT SYNDROME (WRVU 12.89) performed by Sigifredo Garcia MD at [facility] MAIN OR ??? PRO OPEN TREAT MANDIBLE CONDYLE FX, COMPL 04/27/2013 OPEN TREATMENT, COMPLEX MANDIBLE FX., MULTI APPROACH, W/ FIXATION performed by Kishore Neil MD at [facility] MAIN OR ??? PRO REVISE MEDIAN N/CARPAL TUNNEL SURG Left 01/23/2022 MEDIAN NERVE DECOMPRESSION (CARPAL TUNNEL RELEASE) (VU 4.97) performed by Sigifredo Garcia MD at [facility] MAIN OR ??? PRO SEC CLSR SURG WOUND/DEHSN EXTENSIVE/COMPLICATED Left 01/26/2022 SECONDARY CLOSURE SURGICAL WOUND OR DEHISCENCE, EXTENSIVE OR COMPLICATED, UPPER EXTREMITY (WRVU 12.04) performed by Sigifredo Garcia MD at [facility] MAIN OR Prior To Admission Medications: Medications [...] mg/mL) in sodium chloride 0.9% 50 mL TEACHER AIDE CLERICAL infusion ??? HYDROmorphone (Dilaudid) (1 mg/mL) injection syringe 1 mg ??? sevelamer carbonate (Renvela) tablet 1,600 mg ??? diphenhydrAMINE (Benadryl) (50 mg/mL) injection 25 mg ??? prochlorperazine (Compazine) (5 mg/mL) injection 5 mg ??? ondansetron (pf) (Zofran) (2 mg/mL) injection 4 mg ??? naloxone (Narcan) (0.4 mg/mL) injection 0.2 mg ??? TEACHER AIDE CLERICAL hutton ??? HYDROmorphone (mg) TEACHER AIDE CLERICAL shift total and Settings verification ??? vancomycin [...] status post fasciotomies, admitted to the SICU [facility] for hemorrhagic shock resuscitation in the setting [...] to control pain - pain control: acetaminophen, TEACHER AIDE CLERICAL CV: hypotension in the setting of hypovolemia [...] LLE. David Pagan MD Orthopaedic Surgery [facility] I spoke with and examined the patient [...] surgery as scheduled. Alert and oriented RRR CTASal Holland is a 31 y.o. male pended for LUE and LLE I&D and WV exchange. All questions were answered. I reviewed consent and ensured the patient was properly marked. David Pagan MD Orthopaedic Surgery [facility] Associated attestation - Sigifredo Garcia MD - [...] fracture ID: 31 y.o. Male presents to [facility] [place] with PMH significant for hypertension, angioedema requiring intubation(unclear trigger), GERD, gastritis, esophagitis, and urachal cyst s/p I&D, and polysubstance use(including EtOH, cocaine, fentanyl, heroin)??who presented in transfer from [facility] to [facility] [place] ICU on??01/23/2022??for cardiac arrest s/p ROSC, likely [...] to neuro exam. The transport events to [facility] are not clear, but the patient was given a total of 6mg narcan, 10mg IMversed (for ?seizure activity), and and IO placed. He also developed Vtach with rates in the 220s had CPR performed via Jitendra. He was intubated on arrival to [facility] underwent defibrillation with ROSC. He was given [...] was started on levophed and transferred to [facility] [place] for ongoing management. Hospital/ICU course has been significant for: ?? Rhabdomyolysis d/t LUE + LLE Compartment Syndrome with hyperkalemic cardiac arrest ?? COVID-19 infection, Asymptomatic ?? ALTHEA requiring RN VISITING ?? Transaminitis, likely ischemic hepatitis ?? Possible [...] (WRVU 4.1) performed by Tom Valdovinos MD [facility] MAIN OR ? ? PRO DEBRIDEMENT BONE MUSCLE &/FASCIA 20 SQ CM/< Left 01/31/2022 DEBRIDEMENT SKIN, SUBCU, MUSCLE, BONE, LOWER EXTREMITY (WRVU 4.1) performed by Jose Branch MD at [facility] MAIN OR ? ? PRO DEBRIDEMENT BONE MUSCLE &/FASCIA 20 SQ CM/< Left 01/31/2022 DEBRIDEMENT SKIN, SUBCU, MUSCLE, BONE UPPER EXTREMITY (WRVU 4.1) performed by Jose Branch MDat [facility] MAIN OR ? ? PRO DEBRIDEMENT MUSCLE AND FASCIA 20 SQ CM/< Left 01/26/2022 DEBRIDEMENT SKIN, SUBCU, MUSCLE, LOWER EXTREMITY (WRVU 2.7) performed by Sigifredo Garcia MD at [facility] MAIN OR ? ? PRO DEBRIDEMENT MUSCLE AND FASCIA 20 SQ CM/< Left 01/26/2022 DEBRIDEMENT SKIN, SUBCU, MUSCLE, UPPER EXTREMITY (WRVU 2.7) performed by Sigifredo Garcia MD at [facility] MAIN OR ??? PRO DECOMP FOREARM, 2 COMPART, W/O DEBRIDE Left 01/23/2022 FASCIOTOMY; FOREARM AND\OR WRIST, FLEXOR & EXTENS. COMP (WRVU 10.79) performed by Sigifredo Garcia MD at [facility] MAIN OR ??? PRO DECOMPRESS ANT/LAT+POST LEG CMPART Left 01/23/2022 FASCIOTOMY, LOWER LEG, ALL COMPARTMENTS (WRVU 7.82) performed by Sigifredo Garcia MD at [facility] OR ??? PRO INCIS OF HIP/THIGH FASCIA Left 01/23/2022 @FASCIOTOMY,THIGH OR HIP FOR COMPARTMENT SYNDROME (WRVU 12.89) performed by Sigifredo Garcia MD at [facility] OR ??? PRO OPEN TREAT MANDIBLE CONDYLE FX, COMPL 04/27/2013 OPEN TREATMENT, COMPLEX MANDIBLE FX., MULTI APPROACH, W/ FIXATION performed by Kishore Neil MD at [facility] MAIN OR ??? PRO REVISE MEDIAN N/CARPAL TUNNEL SURG Left 01/23/2022 MEDIAN NERVE DECOMPRESSION (CARPAL TUNNEL RELEASE) (VU 4.97) performed by Sigifredo Garcia MD at [facility] MAIN OR ??? PRO SEC CLSR SURG WOUND/DEHSN EXTENSIVE/COMPLICATED Left 01/26/2022 SECONDARY CLOSURE SURGICAL WOUND OR DEHISCENCE, EXTENSIVE OR COMPLICATED, UPPER EXTREMITY (WRVU 12.04) performed by Sigifredo Garcia MD at [facility] MAIN OR Prior To Admission Medications: Medications [...] who have questions please contact the health administrator health care facility that requested your imaging first. Head wo Contrast (Generic) (Exam End: 01/23/2022 3:58 AM) Impression Globi pallidi infarcts. Mild cerebral edema. Thank you for letting us participate in the care of this patient. If you are a health care provider and have any questions regarding this report, please contact the number below. For patients who have questions please contact the health administrator health care facility that requested your imaging first. Electronically signed by: Rex Addison MD, [facility] ([phone]), at 01/23/2022 4:27 AM XR Abdomen 1 [...] who have questions please contact the health administrator health care facility that requested your imaging first. Electronically signed by: Jacky Mello MD, [facility] ([phone]), at 01/23/2022 8:[address] Lower Extremity [...] who have questions please contact the health administrator health care facility that requested your imaging first. Electronically signed by: Melita Mills MD, [facility] ([phone]), at 01/24/2022 1:[address] Chest wo [...] who have questions please contact the health administrator health care facility that requested your imaging first. Electronically signed by: Rex Addison MD, [facility] ([phone]), at 01/23/2022 4:[address] Upper Extremity [...] who have questions please contact the health administrator health care facility that requested your imaging first. Forearm Left [...] who have questions please contact the health administrator health care facility that requested your imaging first. Electronically signed by: Rex Addison MD, [facility] ([phone]), at 01/23/2022 7:14 AM XR Chest One [...] who have questions please contact the health administrator health care facility that requested your imaging first. Electronically signed by: Rex Addison MD, [facility] ([phone]), at 01/23/2022 6:56 AM XR Femur 2 views Left (Generic) (Exam End: 01/23/2022 2:04 PM) Impression No significant osseous finding. Thank you for letting us participate in the care of this patient. If you are a health care provider and have any questions regarding this report, please contact the number below. For patients who have questions please contact the health administrator health care facility that requested your imaging first. Electronically signed by: Lisandro Pruett MD, [facility] ([phone]), at 01/23/2022 2:10 PM XR Tibia Fibula Left (Generic) (Exam End: 01/23/2022 2:04 PM) Impression No bony abnormality seen. Thank you for letting us participate in the care of this patient. If you are a health care provider and have any questions regarding this report, please contact the number below. For patients who have questions please contact the health administrator health care facility that requested your imaging first. Electronically signed by: Jacky Mello MD, [facility] ([phone]), at 01/23/2022 2:07 PM XR Chest One [...] who have questions please contact the health administrator health care facility that requested your imaging first. Electronically signed by: Lisandro Pruett MD, [facility] ([phone]), at 01/23/2022 5:01 PM MRI Brain wo [...] who have questions please contact the health administrator health care facility that requested your imaging first. Electronically signed by: Bernadine Edward [facility] ([phone]), at 01/24/2022 4:[address] Angiogram [place] (Exam End: 01/24/2022 11:32 PM) Impression Normal appearance of the large and medium size arteries of the head and neck Thank you for letting us participate in the care of this patient. If you are a health care provider and have any questions regarding this report, please contact the number below. For patients who have questions please contact the health administrator health care facility that requested your imaging first. Electronically signed by: Arun Helm MD, [facility] ([phone]), at 01/25/2022 10:[address] Angiogram Carotids (Exam End: 01/24/2022 11:32 PM) Impression Normal appearance of the large and medium size arteries of the head and neck Thank you for letting us participate in the care of this patient. If you are a health care provider and have any questions regarding this report, please contact the number below. For patients who have questions please contact the health administrator health care facility that requested your imaging first. Electronically signed by: Arun Helm MD, [facility] ([phone]), at 01/25/2022 10:[address] Chest Abdomen Pelvis w Contrast (Generic) (Exam [...] who have questions please contact the health administrator health care facility that requested your imaging first. Electronically signed by: Melita Mills MD, [facility] ([phone]), at 01/30/2022 3:20 PM Other Studies: EKG - Sinus tachycardia Nonspecific T wave abnormality Abnormal ECG When compared with ECG of 23-JAN-2022 00:46, heart rate has slowed Confirmed by Clem Guo ([id number]) on 02/01/2022 1:23:54 PM TTE 01/24 Interpretation [...] on MR brain and CT COW/carotids from 6/26/22normal. Neurology believes MRI findings are related to [...] requires precautions (day 11) # ALTHEA requiring RN VISITING; now on iHD # Hyponatremia # Hyperkalemia [...] Alert and oriented Tachycardic, RR CTAB Alix Hua Amalia is a 31 y.o. male pended for I&D, WV exchange vs definitive closure of LUE and LLE. David Pagan MD Orthopaedic Surgery [facility] Dimas Hernandez MD - 01/31/2022 6:29 AM [...] CTAB Doc Roberts MD Orthopaedic Surgery [facility] Parrish Esqueda MD - 01/28/2022 5:25 AM [...] answered. Parrish Esqueda MD Orthopaedic Surgery Pager: [phone] Kris Dean MD - 01/26/2022 6:03 AM [...] to neuro exam. The transport events to [facility] are not clear, but thepatient was given a total of 6mg narcan, 10mg IMversed (for ?seizure activity), and and IO placed. He also developed Vtach with rates in the 220s had CPR performed via Jitendra. He was intubated on arrival to [facility] underwent defibrillation with ROSC. He was given [...] was started on levophed and transferred to [facility] [place] for ongoing management. Urine drug screen: +barbiturates, +oxycodone, +opiates Tylenol, salicylates, and ethanol were negative Notable labs: WBC 27.6 Hgb 21.5 Plts 383 K 7.8-> 5.4 CO2 11 BUN 32 Cr 4.37 AG 35 Lactate >10 AST 3588 ALT 990 Trop-I >9000 SARS-CoV-2 RNA detected En-route to [facility] [place] he was given boluses of ketamine for [...] FIXATION performed by Kishore Neil MD at [facility] MAIN OR No family history on file. [...] CK >220,000* TROPONINT 0.43* Microbiology: -01/22/22 from [facility]: SARS-CoV2 PCR positive -Blood cultures, sputum culture, UA, respiratory PCR pending ECG: Sinus tachycardia Imaging: Assessment: Alix Holland is a 31 y.o. male with PMH significant for polysubstance use who presentsto the ICU in transfer from [facility] with cardiac arrest s/p ROSC. Etiology [...] removed Right femoral CVL placed 01/22 at [facility] Right radial A-line ETT NGT Ayala Consults: [...] Hillman APRN January 23, 2022 Critical [facility] Team (pager [phone]) Dr. Robles is the attending of record [...] to the planned procedure. Hand Hygiene: The multimedia production assistant did perform hand hygiene prior to line insertion. Catheter type: PICC Lot number: [id number] Procedure Technique: Skin was prepped with chlorhexidine. [...] Patient location at time of insertion: ICU [address] [place] [address] Rogers Solano APRN Collette Rivas PA - [...] to the planned procedure. Hand Hygiene: The multimedia production assistant did perform hand hygiene prior to arterial [...] to the planned procedure. Hand Hygiene: The multimedia production assistant did perform hand hygiene prior to arterial [...] Patient location at time of insertion: ICU [address] [place] [address] Procedure Comments: Entire procedure supervised by OTIS [...] location at time of insertion: ICU [address] Procedure Comments: Prior to dilation wire was [...] to the planned procedure. Hand Hygiene: The multimedia production assistant did perform hand hygiene prior to arterial [...] Patient is medically ready for discharge to [facility] for acute rehab. Per [facility], patient can have PICC line in place for discharge. Needs for Transition of Care: Plan for discharge is: Acute Rehab Transportation: ambulance , [place] [facility] 2:30pm Wheelchair van/Ambulance? Yes Ambulance transportation [...] and IADLs, drives, used towork for a [employer] company but is not currently working. Enjoys [...] All are in agreement with plan. Lizzy Lvoe RN, BSN Case Management Consult Note - Dilia Lemons - 03/23/2022 8:40 AM EDT BIT Evaluation Referral source: Follow up Reason for referral: Recovery support Relevant history: RC stopped in briefly to chat with Max, but he was just starting PT. LILLIE asked Max if he thought he was leaving today. He wasn't sure, however, RC just wanted to make sure he had her number and knew what to do to set up out patient Suboxone once at [facility]. RC plans to call patient later [...] outpatient MAT appointment, please page Psychiatry at [phone] if you need assistance with this. Time [...] with primary team and at interdisciplinary rounds. [facility] reviewing for possible admission. Requested provider to [...] for discharge is: Acute Rehab Agency Referrals: [facility] Transportation: ambulance Ambulance Finance Concersation Completed: 03/16/2022 [...] was laying in bed when RC arrived. RC and Valeriy discussed outpatient Suboxone provider. He has spoken with [employer] in [place]. He plans to see them after DC [...] outpatient MAT appointment, please page Psychiatry at [phone] if you need assistance with this. Time [...] changed per flowsheet by this RN. RLE PEG per MD instructions. 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 Pt able to get [...] arrived to find Valeriy laying in bed. RC and Valeriy called [facility] to set up out patient provider. Valeriy left a message and is waiting for them to call him back. Some visitors showed up to see him so RC excused herself. Assessment: Valeriy is welcoming and friendly. He is feeling good about starting Suboxone. He is waiting to here back from out patient provider. Interventions delivered: Other: Peer Support Plan: RC will follow up with patient next week Outstanding Discharge Needs: At time of discharge patient may require a buprenorphine script to bridge to outpatient MAT appointment, please page Psychiatry at [phone] if you need assistance with this. Time [...] in the 60-day range as notedbelow.) Origin: [facility] [place] Destination: [place] Is the patient's stay covered under Medicare [...] van (i.e. seated during transport, without medical hospital sales or monitoring?): No 4) In addition to [...] by the Centers of Medicare and MedicaidServices ([facility]) to support the determination of medical necessity [...] attending physician, this form was signed by [employer] Plan of Care - Corina Zabala RN - 03/18/2022 4:27 PM EDT OUTCOME EVALUATION NOTE: ?? OUTCOME SUMMARY: ?? Pt had a good day. VSS on RA. A&Ox4. HR tachy to the 110s to 120 at baseline. TEACHER AIDE CLERICAL discontinued. Prn oxy given with good effect. [...] outpatient MAT appointment, please page BIT at [phone] if you need assistance with this. Time spent with the patient (min):15 minutes Time spent on case coordination (min): 15 minutes Consult Note - Dilia Lemons - 03/18/2022 7:30 AM EDT BIT Evaluation Referral source: Follow [...] about the process of starting treatment. Assessment: Valeryi was welcoming and friendly. He is interested in starting Suboxone. [facility] has already given him information for [facility] in [facility] and will assist him in setting up out patient provider once he starts the treatment. Interventions delivered: Other: Peer Support Plan: will continue to follow patient for the remainder for admission. Outstanding Discharge Needs: At time of discharge patient may require a buprenorphine script to bridge to outpatient MAT appointment, please page Psychiatry at [phone] if you need assistance with this. Time spent with the patient (min):15 minutes Time spent on case coordination (min): 15 minutes Plan of Clint - Corina Zabala RN - 03/17/2022 4:31 PM EDT OUTCOME EVALUATION NOTE: OUTCOME SUMMARY: Pt had a good day. VSS on RA. A&Ox4. HR tachy to the 110s to 120 at baseline. TEACHER AIDE CLERICAL decreased to 0.1mg. Prn oxy given with [...] Their notes will be sent by the Radio Sales Account Executive to the rehab facilities. Will likely have dressing change tomorrow. Currently weaning his dilaudid TEACHER AIDE CLERICAL. ?? Per IDR: 03/17/2022: Acute Rehab on [...] IADLs, drives, used to work for a [employer] company but is not currently working. Enjoys [...] for discharge is: Acute Rehab Agency Referrals: [facility] Inpatient Rehabilitation Unit - [address] [address] [facility] Acute Rehabilitation and Sub-Acute (Swing) Rehab Levels of Care [address] [place] [id number] Transportation: ambulance Discussed with patient on 03/16/2022. Barriers to discharge: Discharge planning Psych: Adjustment to diagnosis/illness, Coping/stress Plan going forward: [facility] Care Management will continue to follow and assist with discharge planning and coordination of care as indicated. Anticipated Date of Discharge: 03/22/2022 Alexa Fonseca RN (Jonas) RN/CM - Cellphone: [phone] Pager: [phone] Covering Service RN/CM Care Management - Jamilah Fonseca RN - 03/17/2022 9:05 AM EDT RN/CM has called: Alix Holland (father) c: [phone] Dad's House: Mobile home; [address]. No steps inside of home. Dad visits almost daily to see his son. Dad will help him establish a PCP with the local [facility]. Per Dad, when pt gets home, his dad will be home as he is retired so he is available 21/02. His Mom is in [place] and she can come up and help [...] near future. Pt's has a brother in [place] - willing to have him come down there once he is physically able to do so. Work: [employer], [place]iking through [place]. Pt's dad is hopeful that he'll be able to get backto his work. Alexa (Kenny) ÁNGEL Fonseca RN/CM - Cellphone: [phone] Pager: [phone] Covering Service RN/CM Plan of Care - Jayme Keenan RN - 03/16/2022 6:56 PM EDT OUTCOME EVALUATION NOTE: OUTCOME SUMMARY: Alix had a good shift today. Elevated BPs and tachycardic, other VSS on RA. Reporting 8 to 10/10 pain, using dilaudid TEACHER AIDE CLERICAL and PRN oxy given x2. Up to chair twice. PT/OT eval today. L calf SLOTTER OPERATOR HELPER with scabs. R thigh and L arm CDI. Reinforced L thigh dressing with abd pad and kerlix. Sacrum red and excoriated. Refusing sacral mepilex. One soft BM via bedpan. Following PT eval today, pt encouraged to use bedside commode. Adequate UOP via urinal. PLAN MOVING FORWARD: M/W/F dressing changes Encourage mobilization and independence Monitor and control pain, weaning TEACHER AIDE CLERICAL, syringe expires 03/18 at 1755 Hoping to [...] discuss discharge planning needs. ?? provide the [facility], Office of Care Management letter from the Court Advocate pertaining to rehab referrals. ?? provide a letter describing our affiliations within the [facility] and educate about their right to choose where referrals are sent. ?? provide the [facility] Star Quality Rating handout. ?? review the different levels of rehab including SNF, swing, and acute. ?? provide a list of facilities within their preferred geographic area. ?? request that they provide at least three choices for referral. They have requested referrals to: [facility] Inpatient Rehabilitation Unit - [address] [address] [facility] Acute Rehabilitation and Sub-Acute (Swing) Rehab Levels of Care [address] [place] [id number] Covid Vaccination Status: UNVACCINATED Does patient have COVID vaccine card: N/A Anticipated discharge date: 03/19/2022 Note routed to a Manager Materials Management who will communicate referrals to facilities and [...] go back to his dad's house in [facility]. RN/CM attempted to call: Alix Holland (Father) - Alix Holland (father) c: [phone]. RN/CM attempted calls to other family members: Marylou Crookswell (Sibling) - [phone] (H): phone call was not able to get through Josefina Holland (Grandparent) - [phone] (H): line busy Per patient, he was employed x 5 years. He is unsure if he'll have employment after all of this is completed and he is strong, healthy enough to work. Alexa (Kenny) ÁNGEL Fonseca RN/CM - Cellphone: [phone] Pager: [phone] Covering Service RN/CM Consult Note - Dilia Lemons - 03/16/2022 11:00 AM EDT BIT Evaluation Referral source: Follow up Reason for referral: Recovery support Relevant history: Max was sitting up in his chair by [...] RA. Reporting 8 to10/10 pain, using dilaudid TEACHER AIDE CLERICAL and PRN oxy given x2. Dressing change [...] and self care Monitor and control pain, TEACHER AIDE CLERICAL expires 03/16 1800 INDIVIDUALIZED FALL PREVENTION INTERVENTIONS: [...] Alexa Fonseca RN (Jonas) RN/CM - Cellphone: [phone] Pager: [phone] Covering Service RN/CM Op Note - Allison Kelly MD - 03/15/2022 9:02 AM EDT [facility] [place] [place] Operative Note Patient Name: Alix Holland : [id number] MR#: [id number] Case Date: 03/15/2022 Surgeon: Surgeon(s) and Role: [...] changes who ultimately underwent STSGs to the [facility] and [facility] on 03/10/22. He then returned to [...] Operative Note Patient Name: Alix Holland : [id number] MR#: [id number] Case Date: 03/15/2022 Surgeon: Surgeon(s) and Role: * Allison Kelly MD - Primary * Veto Hidalgo MD - Resident Preoperative diagnosis: STSG with pseudomonas, unable to tolerate dressing change Postoperative diagnosis: STSG dressing change Procedure(s) (LRB): DRESSING CHANGE (FOR OTHER THAN GALLOWAY) UNDER ANES., UPPER EXTREMITY (WRVU 0.86) (Left) DRESSING CHANGE (FOR OTHER THAN GALOLWAY) UNDER ANES., LOWER EXTREMITY (WRVU 0.86) (Left) [...] Used? N/A Consult Note - Thomas Julian [facility] - 03/14/2022 4:59 PM EDT Clinical Pharmacist Note-Vanc Alix Holland [id number] 1990 Alix Holland is a 31 y.o. [...] have. Alternately, during off-hours you may call [phone] to contact a pharmacist. THOMAS JULIAN [facility] Pager [phone] Plan of Care - Adrienne Tejada RN [...] EDT Brief Operative Note Patient Name: Alix IQBAL: [id number] MR#: [id number] Case Date: 03/13/2022 Surgeon: Surgeon(s) and Role: [...] from the original note were not included. [facility] [place] [place] Operative Note Patient Name: Alix Holland : [id number] MR#: [id number] Case Date: 03/13/2022 Surgeon: Surgeon(s) and Role: [...] Reporting 8 to 10/10 pain, using dilaudid TEACHER AIDE CLERICAL and PRN oxy given x2. No BM this shift but pt now willing to take bowel meds, LBM 8/10. Adequate UOP via urinal. NPO status maintained after midnight. PLAN MOVING FORWARD: Strict bedrest NPO for OR today Encourage self care Monitor and control pain, start weaning TEACHER AIDE CLERICAL INDIVIDUALIZED FALL PREVENTION INTERVENTIONS: Patient-specific fall risk factors per assessment: [current deficits]: Unfamiliar environment, recent surgeries, generalized weakness, lines and drains, pain, narcotics Assistance [level of assistance required for transfers and ambulation]: Bedrest, 2 assist to reposition Supervision [direct monitoring required during toileting and ADLs]: Hands on Surveillance [continuous indirect monbitoring]: Masimo, rounding, personal items and call ell withinreach, room near unit station, bed alarm set Plan of Care - Adrienne Tejada RN - 03/12/2022 7:11 PM EDT OUTCOME EVALUATION NOTE: OUTCOME SUMMARY: Pt A&Ox4. Pt hypertensive and tachycardic. MD aware. A&Ox4. Pt denies SOB, N/V.Pain controlled witn TEACHER AIDE CLERICAL dilaudid and PRN pain meds. Neurovascular checks [...] Reporting 8 to 10/10 pain, using dilaudid TEACHER AIDE CLERICAL and PRN oxy given x2. No BM this shift, LBM 8/10. High UOP. MIVF discontinued. PLAN MOVING FORWARD: NPO tomorrow at midnight for OR Tuesday Encourage self care Monitor and control pain, start weaning TEACHER AIDE CLERICAL INDIVIDUALIZED FALL PREVENTION INTERVENTIONS: Patient-specific fall risk [...] and tachycardic. MD aware. Pain controlled witn TEACHER AIDE CLERICAL dilaudid and PRN pain meds. Neurovascular checks [...] VAC particularly not holding suction please page [phone] immediately given that thiswill affect skin graft take -High-protein high-calorie low Phos diet -Plan to return to the operating room on Tuesday for VAC removal, bedrest until then -TEACHER AIDE CLERICAL for pain control will wean as able [...] Alexa Fonseca RN (Jonas) RN/CM - Cellphone: [phone] Pager: [phone] Covering Service RN/CM Op Note - Veto Hidalgo MD - 03/10/2022 4:40 PM EDT [facility] [place] [place] Operative Note Patient Name: Alix Holland : [id number] MR#: [id number] Case Date: 03/10/2022 Surgeon: Surgeon(s) and Role: [...] Operative Note Patient Name: Alix Holland : [id number] MR#: [id number] Case Date: 03/10/2022 Surgeon: Surgeon(s) and Role: [...] Recovery support Relevant history: arrived to find Max getting back into bed. RC and Max had a brief check in conversation, but [...] Alexa Fonseca RN (Jonas) RN/CM - Cellphone: [phone] Pager: [phone] Covering Service RN/CM Plan of Care - [...] Sanabria MD - 03/03/2022 6:43 PM EDT [facility] [place] [place] Operative Note Patient Name: Alix Holland : [id number] MR#: [id number] Case Date: 03/03/2022 Surgeon: Surgeon(s) and Role: [...] good granulation tissue, minimal exposed tendon. Measures [id number] 3mm deep. One black sponge replaced and [...] (PICC) Teaching Sheet Peripherally inserted central catheters (teqo-nv-zoln) (PICC) are used when you need IV [...] midline catheter? PICC lines are used for equipment operator intermodal yard treatments. PICC lines may be used for [...] can be set up via the nurse Bak[employer] Sales Manager to help you. What are possible [...] Vascular Access Device Selection, Insertion, and Management, Outright Access Systems 05/05. A Review of the Efficacy, Safety, Use, and Administration of [employer], [employer] 2005 Plan of Care - Rhonda Coyle RN - 03/03/2022 6:10 AM EDT Outcome Evaluation Note: Outcome Summary: Pt A&Ox4, VSS on RA - expect tachycardic, afebrile. Reports 10/10 pain with PRN oxycodone. WoundVac x2 to suction, CDI. AUOP via urinal, no BM this shift. Pt NPO at midnight for OR [place] change. Labsdrawn and sent. [facility] Plan Moving Forward: Pain management. [...] requested for recovery supports near his home. Max expressed frustration with long hospital stay, explaining [...] Operative Note Patient Name: Alix Holland : [id number] MR#: [id number] Case Date: 03/01/2022 Surgeon: Surgeon(s) and Role: [...] Sanabria MD - 03/01/2022 8:09 PM EDT [facility] [place] [place] Operative Note Patient Name: Alix Holland : [id number] MR#: [id number] Case Date: 03/01/2022 ?? Surgeon: Surgeon(s) and [...] CPG GOAL OUTCOME EVALUATION: Op Note - Parrihs Betancourt MD - 02/26/2022 8:58 AM EDT [facility] [place] [place] Operative Note Patient Name: Alix Holland : [id number] MR#: [id number] Case Date: 02/26/2022 Surgeon: Surgeon(s) and Role: [...] and Serratia infections.?? RN at bedside with ANIMAL CARE GIVER; Patient has just returned from OR. RN [...] Risk Screen: no indicators present Current bed: [facility] Assessment: Patient is free of MASD [...] Ajit Simmons RN on secure chat, pager [phone] or the wound care team at [phone] or pager [phone] with skin and wound care concerns or questions. Op Note - Elaine Dos Santos MD - 02/24/2022 12:14 PM EDT [facility] [place] [place] Operative Note Patient Name: Alix Holland : [id number] MR#: [id number] Case Date: 02/24/2022 Surgeon: Surgeon(s) and Role: [...] time. Interventions delivered: Other: Peer Support Plan: will try to meet with alix again [...] visitor majority of afternoon. ID MD Michael MARTEL'd IV abx. Bed alarm on for safety. [facility] Plan Moving Forward: HD. Pain [...] tomorrow. Interventions delivered: Other: Peer Support Plan: will follow patient for duration of stay [...] Outpatient Agency/Support Group Needs: None Agency Referrals: [facility] for HD Transportation: Family Plan going forward: Care Management will continue to follow and assist with discharge planning and coordination of care as indicated. Anticipated Date of Discharge: 02/26/2022 Lizzy Love RN, BSN Case Management Brief Op Note - Elaine Dos Santos MD - 02/22/2022 9:42 AM EDT Brief Operative Note Patient Name: Alix Holland : [id number] MR#: [id number] Case Date: 02/22/2022 Surgeon: Surgeon(s) and Role: [...] Santos MD - 02/22/2022 9:27 AM EDT [facility] [place] [place] Operative Note Patient Name: Alix Holland : [id number] MR#: [id number] Case Date: 02/22/2022 Surgeon: Surgeon(s) and Role: [...] MD 02/23/2022 Plan of Care - Rama Dean, ÁNGEL - 02/21/2022 6:40 PM EDT OUTCOME EVALUATION [...] Surveillance [continuous indirect monitoring]: Masimo, call starks w/in reach, purposeful rounding, room near [...] Sandoval MD - 02/19/2022 10:20 AM EDT [facility] [place] [place] Operative Note Patient Name: Alix Holland : [id number] MR#: [id number] Case Date: 02/19/2022 Surgeon: Surgeon(s) and Role: * Jayme Armstrong MD - Primary * Kim Ovalle APRN - Nurse Practitioner * Kaitlyn Rock MD - Resident * Floridalma Sandoavl MD - Assisting Attending Preoperative diagnosis: LUE [...] the end of the case was correct. ??Melinda??and Patti were present for all critical parts [...] Pt remained NPO @ 0000 for OR. [facility] Plan Moving Forward: Pain control. [...] care related to: OR tomorrow, Dialysis, dc lucy, question possible skin graft next week. Functional [...] EDT Brief Operative Note Patient Name: Alix IQBAL: [id number] MR#: [id number] Case Date: 02/17/2022 Surgeon: Surgeon(s) and Role: [...] Armstrong MD - 02/17/2022 8:03 AM EDT [facility] [place] [place] Operative Note Patient Name: Alix Holland : [id number] MR#: [id number] Case Date: 02/17/2022 Surgeon: Surgeon(s) and Role: [...] opening and closing). Jayme Armstrong MD 02/18/2022 [facility] - Brittney Ann RN - 02/17/2022 6:19 [...] Armstrong MD - 02/15/2022 2:08 PM EDT [facility] [place] [place] Operative Note Patient Name: Alix Holland : [id number] MR#: [id number] Case Date: 02/15/2022 Surgeon: Surgeon(s) and Role: [...] was cultured. We then removed the remaining Shanks. The wound was irrigated and measured wound [...] 125mmhg. VSS. WCTM. 1900: Pt BS for >999ml- notified-new straight cath order in-pt declined and [...] Dose Adjustment for Antimicrobials Alix Holland (A# [id number]) is being treated with the following antimicrobial [...] Chatterjee MD - 02/13/2022 9:52 AM EDT [facility] [place] [place] Operative Note Patient Name: Alix Holland : [id number] MR#: [id number] Case Date: 02/13/2022 Surgeon: Surgeon(s) and Role: [...] PCP: None Primary Team #: ICU (Juan #[id number]) CC: findings of CTH HPI: Alix Holland [...] he was following commands upon arrival to [facility] [place] [place] ICU. CTH showed bilateral symmetric globus pallidi [...] Arteriogram Lower Extremity 02/06/2022 Nicole Vivas MD [facility] INTERVENTIONL RAD ??? PRO DEBRIDEMENT BONE EA ADDL 20 SQCM 02/08/2022 EACH ADDITIONAL 20 SQ CM, OR PART THEREOF (WRVU 1.8) performed by Jeanette Chatterjee MD at [facility] PAIGE ? ? PRO DEBRIDEMENT BONE MUSCLE &/FASCIA 20 SQ CM/< Left 01/29/2022 DEBRIDEMENT SKIN, SUBCU, MUSCLE, BONE, LOWER EXTREMITY (WRVU 4.1) performed by Tom Valdovinos MD [facility] MAIN OR ? ? PRO DEBRIDEMENT BONE MUSCLE &/FASCIA 20 SQ CM/< Left 01/31/2022 DEBRIDEMENT SKIN, SUBCU, MUSCLE, BONE, LOWER EXTREMITY (WRVU 4.1) performed by Jose Branch MD at [facility] MAIN OR ? ? PRO DEBRIDEMENT BONE MUSCLE &/FASCIA 20 SQ CM/< Left 01/31/2022 DEBRIDEMENT SKIN, SUBCU, MUSCLE, BONE UPPER EXTREMITY (WRVU 4.1) performed by Jose Branch MDat [facility] MAIN OR ? ? PRO DEBRIDEMENT BONE MUSCLE &/FASCIA 20 SQ CM/< Left 02/02/2022 DEBRIDEMENT SKIN, SUBCU, MUSCLE, BONE UPPER EXTREMITY (WRVU 4.1) performed by Hina Starks MD at [facility] MAIN OR ? ? PRO DEBRIDEMENT BONE MUSCLE &/FASCIA 20 SQ CM/< Left 02/02/2022 DEBRIDEMENT SKIN, SUBCU, MUSCLE, BONE, LOWER EXTREMITY (WRVU 4.1) performed by Hina Starks MD at [facility] MAIN OR ? ? PRO DEBRIDEMENT MUSCLE AND FASCIA 20 SQ CM/< Left 01/26/2022 DEBRIDEMENT SKIN, SUBCU, MUSCLE, LOWER EXTREMITY (WRVU 2.7) performed by Sigifredo Garcia MD at [facility] MAIN OR ? ? PRO DEBRIDEMENT MUSCLE AND FASCIA 20 SQ CM/< Left 01/26/2022 DEBRIDEMENT SKIN, SUBCU, MUSCLE, UPPER EXTREMITY (WRVU 2.7) performed by Sigifredo Garcia MD at [facility] MAIN OR ? ? PRO DEBRIDEMENT MUSCLE AND FASCIA 20 SQ CM/< Left 02/05/2022 DEBRIDEMENT SKIN, SUBCU, MUSCLE, LOWER EXTREMITY (WRVU 2.7) performed by Tom Valdovinos MD at [facility] OR ? ? PRO DEBRIDEMENT MUSCLE AND FASCIA 20 SQ CM/< Left 02/04/2022 DEBRIDEMENT SKIN, SUBCU, MUSCLE, LOWER EXTREMITY (WRVU 2.7) performed by Sigifredo Garcia MD at [facility] OR ? ? PRO DEBRIDEMENT SUBCUTANEOUS TISSUE 20 SQCM/< Left 02/04/2022 DEBRIDEMENT SKIN AND SUBCU, UPPER EXTREMITY (WRVU 1.01) performed by Sigifredo Garcia MD at [facility] PAIGE ? ? PRO DEBRIDEMENT SUBCUTANEOUS TISSUE 20 SQCM/< Left 02/08/2022 DEBRIDEMENT SKIN AND SUBCU, LOWER EXTREMITY (WRVU 1.01) performed by Jeanette Chatterjee MD at [facility] OR ? ? PRO DEBRIDEMENT SUBCUTANEOUS TISSUE 20 SQCM/< Left 02/09/2022 DEBRIDEMENT SKIN AND SUBCU, LOWER EXTREMITY (WRVU 1.01) performed by Jeanette Chatterjee MD at [facility] OR ??? PRO DECOMP FOREARM, 2 COMPART, W/O DEBRIDE Left 01/23/2022 FASCIOTOMY; FOREARM AND\OR WRIST, FLEXOR & EXTENS. COMP (WRVU 10.79) performed by Sigifredo Garcia MD at [facility] OR ??? PRO DECOMPRESS ANT/LAT+POST LEG CMPART Left 01/23/2022 FASCIOTOMY, LOWER LEG, ALL COMPARTMENTS (WRVU 7.82) performed by Sigifredo Garcia MD at [facility] OR ? ? PRO I&D DEEP ABSCESS BURSA/HEMATOMA THIGH/KNEE REGION Left 02/06/2022 INCISION & DRAINAGE ABSCESS OR HEMATOMA, THIGH, KNEE SUPERFICIAL (WRVU 6.78) performed by Jayme Armstrong MD at [facility] OR ??? PRO INCIS OF HIP/THIGH FASCIA Left 01/23/2022 @FASCIOTOMY,THIGH OR HIP FOR COMPARTMENT SYNDROME (WRVU 12.89) performed by Sigifredo Garcia MD at [facility] OR ??? PRO NEGATIVE PRESSURE WOUND THERAPY, LESS THAN OR EQUAL TO 50 SQCM Left 02/05/2022 DRESSING CHANGE (VAC ASSISTED) UP TO 50SQ.CM (WRVU 0.55) performed by Orville Hennessy MD at [facility] MAIN OR ??? PRO NEGATIVE PRESSURE WOUND THERAPY, LESS THAN OR EQUAL TO 50 SQCM Left 02/05/2022 DRESSING CHANGE (VAC ASSISTED) UP TO 50SQ.CM (WRVU 0.55) performed by Tom Valdovinos MD at [facility] MAIN OR ??? PRO NEGATIVE PRESSURE WOUND THERAPY, LESS THAN OR EQUAL TO 50 SQCM Left 02/08/2022 DRESSING CHANGE (VAC ASSISTED) UP TO 50SQ.CM (WRVU 0.55) performed by Jeanette Chatterjee MD at [facility] MAIN OR ??? PRO OPEN TREAT MANDIBLE CONDYLE FX, COMPL 04/27/2013 OPEN TREATMENT, COMPLEX MANDIBLE FX., MULTI APPROACH, W/ FIXATION performed by Kishore Neil MD at [facility] MAIN OR ??? PRO REVISE MEDIAN N/CARPAL TUNNEL SURG Left 01/23/2022 MEDIAN NERVE DECOMPRESSION (CARPAL TUNNEL RELEASE) (WRVU 4.97) performed by Sigifredo Garcia MD at [facility] MAIN OR ??? PRO SEC CLSR SURG WOUND/DEHSN EXTENSIVE/COMPLICATED Left 01/26/2022 SECONDARY CLOSURE SURGICAL WOUND OR DEHISCENCE, EXTENSIVE OR COMPLICATED, UPPER EXTREMITY (WRVU 12.04) performed by Sigifredo Garcia MD at [facility] MAIN OR Home Medications: No current facility-administered [...] year, name, knows why he is at [facility] [place] [place], knows he is at [facility] [place] [place], follows complex commands. More alert than prior; [...] 02/10/2022 HCT 20.7 (L) 02/09/2022 Current bed: [facility] Assessment: The skin of the buttocks with [...] privacy for the patient. 2. Apply the [place] sheet with Body Pad under the patient with the tag on the underside of the [place] Sheet unfolded toward head of bed. Align upper edge of [place] Sheet with patient's shoulders. 3. Gently slide [...] follow every 2 weeks. Discussed plan with: /BRIAN/RHONDA: Gina Montaño RN: Sg Please contact Nikki Pollard RN on secure chat or the wound care team at [phone] or pager [phone] with skin and wound care concerns or [...] off for discharge. We recommend stopping the TEACHER AIDE CLERICAL and increasing the frequency of the PRNoxycodone to make up for any decrease in coverage. There is no role for IV pain medication in his care except for rescue and OR. The dronabinol can also be increased. Recommendations: - D/C hydromorphone TEACHER AIDE CLERICAL - increase oxy sliding scale to Q3h - avoid IV opioids (other than rescue and OR) - increase dronabinol to 15mg PO BID Plan discussed with patient, his partner, and the primary team. Recommendations are above, please page if further consultation is required. Nicholas Modi MD 02/11/2022 Acute Pain Service Pager: [phone] I have seen and examined the patient. I have reviewed Dr. Modi's note and agree with the findings, assessment and plan. Op Note - Kaitlyn Rock MD - 02/11/2022 11:09 AM EDT [facility] [place] [place] Operative Note Patient Name: Alix Holland : [id number] MR#: [id number] Case Date: 02/11/2022 Surgeon: Surgeon(s) and Role: [...] CONSULTATION NOTE Patient ID: Alix Holland Room: [address] [place] [address] Reason for Consult: Surgical site infection and [...] issues with pain control and PO and TEACHER AIDE CLERICAL currently helping somewhat. 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 Op Note - Jeanette Chatterjee MD - 02/08/2022 4:18 PM EDT [facility] [place] [place] Operative Note Patient Name: Alix Holland : [id number] MR#: [id number] Case Date: 02/08/2022 Surgeon: Surgeon(s) and Role: [...] N/A Prescription Coverage: No Preferred Pharmacy: [facility] [address] [id number] [id number] - [place], [place] - [address] [facility] [address] [facility] [address] Plan for discharge is: Pending Hospital Course [...] Armstrong MD - 02/06/2022 4:09 PM EDT [facility] [place] [place] Operative Note Patient Name: Alix Holland : [id number] MR#: [id number] Case Date: 02/06/2022 Surgeon: Surgeon(s) and Role: [...] artery ?? Mynx Closure device deployed, R POLYTECHNIC REGISTRAR Findings of the procedure: ?? 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 Transfer back to ICU 2. Flat for 2 hours, following Right POLYTECHNIC REGISTRAR Mynx closure deployment 3. Monitor for Right [...] to wound vac on LUE. Pt using TEACHER AIDE CLERICAL for pain control. PT to OR midday. [...] per assessment: [current deficits]: Severely limited mobility, TEACHER AIDE CLERICAL pump, central venous access., wound vacs Assistance [...] Valdovinos MD - 02/05/2022 1:17 PM EDT [facility] [place] [place] Operative Note Panel 1 Patient Name: Alix Holland : [id number] MR#: [id number] Case Date: 02/05/2022 Surgeon: Surgeon(s) and Role: [...] Hennessy MD - 02/05/2022 1:17 PM EDT [facility] [place] [place] Operative Note Patient Name: Alix Holland : [id number] MR#: [id number] Case Date: 02/05/2022 Surgeon: Surgeon(s) and Role: [...] Operative Note Patient Name: Alix Holland : [id number] MR#: [id number] Case Date: 02/04/2022 Surgeon: Surgeon(s) and Role: [...] Garcia MD - 02/04/2022 5:38 PM EDT [facility] [place] [place] Operative Note Patient Name: Alix Holland : [id number] MR#: [id number] Case Date: 02/04/2022 Surgeon: Surgeon(s) and Role: [...] (WRVU 4.1) performed by Tom Valdovinos MD [facility] MAIN OR ? ? PRO DEBRIDEMENT BONE MUSCLE &/FASCIA 20 SQ CM/< Left 01/31/2022 DEBRIDEMENT SKIN, SUBCU, MUSCLE, BONE, LOWER EXTREMITY (WRVU 4.1) performed by Jose Branch MD at [facility] MAIN OR ? ? PRO DEBRIDEMENT BONE MUSCLE &/FASCIA 20 SQ CM/< Left 01/31/2022 DEBRIDEMENT SKIN, SUBCU, MUSCLE, BONE UPPER EXTREMITY (WRVU 4.1) performed by Jose Branch MDat [facility] MAIN OR ? ? PRO DEBRIDEMENT BONE MUSCLE &/FASCIA 20 SQ CM/< Left 02/02/2022 DEBRIDEMENT SKIN, SUBCU, MUSCLE, BONE UPPER EXTREMITY (WRVU 4.1) performed by Hina Starks MD at [facility] MAIN OR ? ? PRO DEBRIDEMENT BONE MUSCLE &/FASCIA 20 SQ CM/< Left 02/02/2022 DEBRIDEMENT SKIN, SUBCU, MUSCLE, BONE, LOWER EXTREMITY (WRVU 4.1) performed by Hina Starks MD at [facility] MAIN OR ? ? PRO DEBRIDEMENT MUSCLE AND FASCIA 20 SQ CM/< Left 01/26/2022 DEBRIDEMENT SKIN, SUBCU, MUSCLE, LOWER EXTREMITY (WRVU 2.7) performed by Sigifredo Garcia MD at [facility] MAIN OR ? ? PRO DEBRIDEMENT MUSCLE AND FASCIA 20 SQ CM/< Left 01/26/2022 DEBRIDEMENT SKIN, SUBCU, MUSCLE, UPPER EXTREMITY (WRVU 2.7) performed by Sigifredo Garcia MD at [facility] MAIN OR ??? PRO DECOMP FOREARM, 2 COMPART, W/O DEBRIDE Left 01/23/2022 FASCIOTOMY; FOREARM AND\OR WRIST, FLEXOR & EXTENS. COMP (WRVU 10.79) performed by Sigifredo Garcia MD at [facility] MAIN OR ??? PRO DECOMPRESS ANT/LAT+POST LEG CMPART Left 01/23/2022 FASCIOTOMY, LOWER LEG, ALL COMPARTMENTS (WRVU 7.82) performed by Sigifredo Garcia MD at [facility] MAIN OR ??? PRO INCIS OF HIP/THIGH FASCIA Left 01/23/2022 @FASCIOTOMY,THIGH OR HIP FOR COMPARTMENT SYNDROME (WRVU 12.89) performed by Sigifredo Garcia MD at [facility] MAIN OR ??? PRO OPEN TREAT MANDIBLE CONDYLE FX, COMPL 04/27/2013 OPEN TREATMENT, COMPLEX MANDIBLE FX., MULTI APPROACH, W/ FIXATION performed by Kishore Neil MD at [facility] MAIN OR ??? PRO REVISE MEDIAN N/CARPAL TUNNEL SURG Left 01/23/2022 MEDIAN NERVE DECOMPRESSION (CARPAL TUNNEL RELEASE) (WRVU 4.97) performed by Sigifredo Garcia MD at [facility] MAIN OR ??? PRO SEC CLSR SURG WOUND/DEHSN EXTENSIVE/COMPLICATED Left 01/26/2022 SECONDARY CLOSURE SURGICAL WOUND OR DEHISCENCE, EXTENSIVE OR COMPLICATED, UPPER EXTREMITY (WRVU 12.04) performed by Sigifredo Garcia MD at [facility] MAIN OR MEDS: No current facility-administered medications [...] Kenny Brandon MD Plastic surgery team pager: [phone] Attending: Plan discussed and agree as documented. [...] PCP: None Primary Team #: ICU (Green #[id number]) CC: findings of CTH HPI: Alix Holland [...] he was following commands upon arrival to [facility] [place] [place] ICU. CTH showed bilateral symmetric globus pallidi [...] no acute intervention Today: - pain control: TEACHER AIDE CLERICAL, received dilaudid IV x 1 yesterday for breakthrough. > APS following for pain control recs - reports significant pain in LUE mainly this AM '05/10' Current Medications: Scheduled Meds: ??? TEACHER AIDE CLERICAL shift total and Settings verification Intravenous 2 Times Daily- TEACHER AIDE CLERICAL Shift Total ??? vancomycin 125 mg Oral [...] (WRVU 4.1) performed by Tom Valdovinos MD [facility] MAIN OR ? ? PRO DEBRIDEMENT BONE MUSCLE &/FASCIA 20 SQ CM/< Left 01/31/2022 DEBRIDEMENT SKIN, SUBCU, MUSCLE, BONE, LOWER EXTREMITY (WRVU 4.1) performed by Jose Branch MD at [facility] MAIN OR ? ? PRO DEBRIDEMENT BONE MUSCLE &/FASCIA 20 SQ CM/< Left 01/31/2022 DEBRIDEMENT SKIN, SUBCU, MUSCLE, BONE UPPER EXTREMITY (WRVU 4.1) performed by Jose Branch MDat [facility] MAIN OR ? ? PRO DEBRIDEMENT MUSCLE AND FASCIA 20 SQ CM/< Left 01/26/2022 DEBRIDEMENT SKIN, SUBCU, MUSCLE, LOWER EXTREMITY (WRVU 2.7) performed by Sigifredo Garcia MD at [facility] MAIN OR ? ? PRO DEBRIDEMENT MUSCLE AND FASCIA 20 SQ CM/< Left 01/26/2022 DEBRIDEMENT SKIN, SUBCU, MUSCLE, UPPER EXTREMITY (WRVU 2.7) performed by Sigifredo Garcia MD at [facility] MAIN OR ??? PRO DECOMP FOREARM, 2 COMPART, W/O DEBRIDE Left 01/23/2022 FASCIOTOMY; FOREARM AND\OR WRIST, FLEXOR & EXTENS. COMP (WRVU 10.79) performed by Sigifredo Garcia MD at [facility] MAIN OR ??? PRO DECOMPRESS ANT/LAT+POST LEG CMPART Left 01/23/2022 FASCIOTOMY, LOWER LEG, ALL COMPARTMENTS (WRVU 7.82) performed by Sigifredo Garcia MD at [facility] MAIN OR ??? PRO INCIS OF HIP/THIGH FASCIA Left 01/23/2022 @FASCIOTOMY,THIGH OR HIP FOR COMPARTMENT SYNDROME (WRVU 12.89) performed by Sigifredo Garcia MD at [facility] OR ??? PRO OPEN TREAT MANDIBLE CONDYLE FX, COMPL 04/27/2013 OPEN TREATMENT, COMPLEX MANDIBLE FX., MULTI APPROACH, W/ FIXATION performed by Kishore Neil MD at [facility] MAIN OR ??? PRO REVISE MEDIAN N/CARPAL TUNNEL SURG Left 01/23/2022 MEDIAN NERVE DECOMPRESSION (CARPAL TUNNEL RELEASE) (WRVU 4.97) performed by Sigifredo Garcia MD at [facility] MAIN OR ??? PRO SEC CLSR SURG WOUND/DEHSN EXTENSIVE/COMPLICATED Left 01/26/2022 SECONDARY CLOSURE SURGICAL WOUND OR DEHISCENCE, EXTENSIVE OR COMPLICATED, UPPER EXTREMITY (WRVU 12.04) performed by Sigifredo Garcia MD at [facility] OR Theodore Medications: No current facility-administered medications on file [...] year, name, knows why he is at [facility] [place], knows he is at [facility] [place], follows complex commands. Very sleepy on exam, [...] 245 220 Last 3 Lytes Recent Labs 02/02/22 02202/01/22 1815 02/01/22 1142 NA 127* 127* 129* [...] his local injuriesand post-surgical changes than his TRUMPET TEACHER findings. No additional workup or intervention indicated [...] Whitt MD Neurology PGY-3 Neurology Consult Service# [id number] 02/02/2022 ATTENDING NOTE: I reviewed the pertinent [...] from the original note were not included. [facility] [place] Operative Note Patient Name: Alix Holland : [id number] MR#: [id number] Case Date: 02/02/2022 Surgeon: Surgeon(s) and Role: * Hina Starks MD - Primary * Ama Dickerson PA - Physician Collection Development Librarian * Terry Vázquez MD - Resident Preoperative [...] Insurance: N/A Prescription Coverage: No Preferred Pharmacy: [address], [address] [address] [facility] [phone] - [place], [place] - [address] [facility] [address] Plan for discharge is: Pending Hospital Course [...] changes of note to overall assessment. Dilaudid TEACHER AIDE CLERICAL with good effect on pain. Pt slept [...] w/ minimal effect. Pt switched over to TEACHER AIDE CLERICAL pump w/ some improvement in pain. Wound [...] Branch MD - 01/31/2022 11:09 AM EDT [facility] [place] Operative Note Patient Name: Alix Holland : [id number] MR#: [id number] Case Date: 01/31/2022 Surgeon: Surgeon(s) and Role: [...] Patient was met in his room, green blackfeet was placed in the left upper and [...] Valdovinos MD - 01/29/2022 3:50 PM EDT [facility] [place] Operative Note Patient Name: Alix Holland : [id number] MR#: [id number] Case Date: 01/29/2022 Surgeon: Surgeon(s) and Role: [...] after fentanyl overdose. He was taken to [facility] where he had a cardiac arrest,??ROSC, and??he was intubated and sedated. He??was then transferred to [facility] for further care. ??Labs showed he had [...] then extubated and transferred back to the [facility] without any complication. Dr. Valdovinos [...] Modi MD 01/29/2022 Acute Pain Service Pager: [phone] I have seen and examined the patient, [...] Major MD 01/28/2022 Acute Pain Service Pager: [phone] Associated attestation - Nathan Ricardo MD - [...] Major MD 01/27/2022 Acute Pain Service Pager: [phone] Associated attestation - Nathan Ricardo MD - 02/03/2022 4:20 PM EDT I have seen and examined the patient, providing hutton components as outlined below. I have reviewed the resident???s above note; Consult Note - Adela Hackett DO - 01/27/2022 9:05 AM EDT Neurology Consultation Note - 01/27/2022 Patient name: Alix Holland Date of : 1990 PCP: None Primary Team #: ICU (Juan #[id number]) CC: findings of CTH HPI: Alix Holland [...] he was following commands upon arrival to [facility] [place] ICU. CTH showed bilateral symmetric globus pallidi [...] (01/27/22 0800) ??? ketamine 0.5 mg/kg/hr (01/27/22 0800) ??? heparin (porcine) infusion 400 Units/hr (01/27/22 08) ??? bicarbonate CRRT with 4 mEq/L K+, 3 mEq/L Ca++ 5 each (01/27/22 06) ??? sodium phosphate 15 mL/hr (01/27/22 0800) ??? calcium gluconate Stopped (01/25/22 1204) ??? tube feeding diet 10 mL/hr at 01/27/22 0800 ??? NORepinephrine Stopped (01/26/222016) ??? fentaNYL 50 mcg/hr (01/27/22 0800) ??? dexmedeTOMIDine 0.5 mcg/kg/hr (01/27/22 0800) PRN Meds:.HYDROmorphone, polyethylene glycoL, naloxone, heparin (porcine), [...] 4.1) performed by Sigifredo Garcia MD at [facility] MAIN OR ? ? PRO DEBRIDEMENT BONE MUSCLE &/FASCIA 20 SQ CM/< Left 01/26/2022 DEBRIDEMENT SKIN, SUBCU, MUSCLE, BONE, LOWER EXTREMITY (WRVU 4.1) performed by Sigifredo Garcia MD [facility] MAIN OR ??? PRO DECOMP FOREARM, 2 COMPART, W/O DEBRIDE Left 01/23/2022 FASCIOTOMY; FOREARM AND\OR WRIST, FLEXOR & EXTENS. COMP (WRVU 10.79) performed by Sigifredo Garcia MD at [facility] MAIN OR ??? PRO DECOMPRESS ANT/LAT+POST LEG CMPART Left 01/23/2022 FASCIOTOMY, LOWER LEG, ALL COMPARTMENTS (WRVU 7.82) performed by Sigifredo Garcia MD at [facility] MAIN OR ??? PRO INCIS OF HIP/THIGH FASCIA Left 01/23/2022 @FASCIOTOMY,THIGH OR HIP FOR COMPARTMENT SYNDROME (WRVU 12.89) performed by Sigifredo Garcia MD at [facility] MAIN OR ??? PRO OPEN TREAT MANDIBLE CONDYLE FX, COMPL 04/27/2013 OPEN TREATMENT, COMPLEX MANDIBLE FX., MULTI APPROACH, W/ FIXATION performed by Kishore Neil MD at [facility] MAIN OR ??? PRO REVISE MEDIAN N/CARPAL TUNNEL SURG Left 01/23/2022 MEDIAN NERVE DECOMPRESSION (CARPAL TUNNEL RELEASE) (WRVU 4.97) performed by Sigifredo Garcia MD at [facility] MAIN OR Home Medications: No current facility-administered [...] year, name, knows why he is at [facility] [place], knows he is at [facility] [place], follows complex commands. CN: PERRL, EOMI Tongue [...] documented. Josh Boyd D.O. Neurology Department [facility] [email or web address] Plan of Care - [...] Lidocaine patches placed. Pain is always reported 05/10. Pt continues with tachycardia 130s-140s sustained with [...] Garcia MD - 01/26/2022 4:23 PM EDT [facility] [place] Operative Note Patient Name: Alix Holland : [id number] MR#: [id number] Case Date: 01/26/2022 Surgeon: Surgeon(s) and Role: [...] after fentanyl overdose. He was taken to [facility] where he had a cardiac arrest, ROSC, and he was intubated and sedated. He was then transferred to [facility] [place] for [facility]. Labs showed he had hyperkalemia, acidosis, [...] Insurance: N/A Prescription Coverage: Yes Preferred Pharmacy: [facility] - [address] [address] [facility] [address] - [place], [place] - [address] [facility] [address] [facility] [address] Plan for discharge is: Pending Hospital Course [...] Component Value Date COVID19 Detected (A) 01/23/2022 [id number] Not Detected 04/26/2021 Past medical History: Past [...] Alix) would be surrogate decision maker per [place] surrogate decision making law. (Only good for 180 days) Any patient receiving care at [facility] [place] must abide by [place] law. The hierarchy for surrogate decision making [...] (i) The agent with financial power of banking attorney or a conservator appointed in accordance [...] Current DME: none Home Address listed as: [address] [address] Social & Family Supports: All names listed below confirmed with patient as current and correct Extended Emergency Contact Information Primary Emergency Contact: Josefina Holland Relation: Mother Secondary Emergency Contact: Marylou Holland [facility] Relation: Sibling Father: Alix Holland [facility] Current Care Provided by: self Provides Primary [...] N/A Prescription Coverage: No Preferred Pharmacy: [facility] [address] [facility] [address] - [address] [facility] [address] Status: Patient is a : No Primary [...] with transition of care planning. ARIN Lieberman, [facility] Continuing Radio Sales Account ExecutiveHead Bucker of Neurology [phone] Consult Note - Adela Hackett DO - 01/25/2022 9:59 AM EDT Neurology Consultation Note - 01/25/2022 Patient name: Alix Holland Date of : 1990 PCP: None Primary Team #: ICU (Juan #[id number]) CC: findings of CTH HPI: Alix Holland [...] he was following commands upon arrival to [facility] [place] ICU. CTH showed bilateral symmetric globus pallidi [...] K+, 3 mEq/L Ca++ 5 each (01/25/22 5770) ??? sodium phosphate ??? calcium gluconate 10 [...] 10.79) performed by Sigifredo Garcia MD at [facility] MAIN OR ??? PRO DECOMPRESS ANT/LAT+POST LEG CMPART Left 01/23/2022 FASCIOTOMY, LOWER LEG, ALL COMPARTMENTS (WRVU 7.82) performed by Sigifredo Garcia MD at [facility] MAIN OR ??? PRO INCIS OF HIP/THIGH FASCIA Left 01/23/2022 @FASCIOTOMY,THIGH OR HIP FOR COMPARTMENT SYNDROME (WRVU 12.89) performed by Sigifredo Garcia MD at [facility] MAIN OR ??? PRO OPEN TREAT MANDIBLE CONDYLE FX, COMPL 04/27/2013 OPEN TREATMENT, COMPLEX MANDIBLE FX., MULTI APPROACH, W/ FIXATION performed by Kishore Neil MD at [facility] MAIN OR ??? PRO REVISE MEDIAN N/CARPAL TUNNEL SURG Left 01/23/2022 MEDIAN NERVE DECOMPRESSION (CARPAL TUNNEL RELEASE) (WRVU 4.97) performed by Sigifredo Garcia MD at [facility] MAIN OR Home Medications: No current facility-administered [...] DO Neurology PGY-2 Neurology Consult Service# [id number] 01/25/2022 Associated attestation - Josh Boyd DO [...] documented. Josh Boyd D.O. Neurology Department [facility] [email or web address] Consult Note - Charlotte Castañeda, RD - 01/25/2022 9:42 AM EDT Nutrition [...] On CRRT If patient switches to shift RN VISITING or HD please consult nutrition for new [...] discuss plan with provider ARLETH Martinez pager #[phone]. All Active TF Orders: Nepro with goal [...] encounter: 113 kg (249 lb 1.9 oz). [place] Body Weight: 81 kg Usual Body Weight: [...] today for wound vacs. Estimated needs: Calories: 9398-2913 (20-25 kcal/kg IBW) for the first 7-10 [...] inpatient Thank you, Charlotte Castañeda RD Pager #:[phone] Plan of Care - Forest Blankenship RN [...] PCP: None Primary Team #: ICU (Green #[id number]) CC: findings of CTH HPI: Alix Holland [...] he was following commands upon arrival to [facility] [place] ICU. CTH showed bilateral symmetric globus pallidi hypodensities. Current Medications: Scheduled Meds: ??? [MAR Hold] insulin lispro 2-8 Units Subcutaneous Q4H [place] ??? [MAR Hold] chlorhexidine 15 mL Oral BID ??? [MAR Hold] pantoprazole 40 mg Intravenous BID ??? [...] FIXATION performed by Kishore Neil MD at [facility] MAIN OR Home Medications: No current facility-administered [...] >220,000 (H) 0 - 200 unit/L TSH [place] Result Value Ref Range TSH 7.69 (H) [...] Value Ref Range T&S only valid at [facility] [place] Hosp Triglyceride Result Value Ref Range Triglycerides [...] mcL Appearance UA Cloudy (A) Clear Spec [place] UA >=1.030 (A) 1.006 - 1.030 Color [...] documented. Josh Boyd D.O. Neurology Department [facility] [email or web address] Op Note - Sigifredo Garcia MD - 01/23/2022 8:28 AM EDT [facility] [place] Operative Note Patient Name: Alix Holland : [id number] MR#: [id number] Case Date: 01/23/2022 Surgeon: Surgeon(s) and Role: [...] after fentanyl overdose. He was taken to [facility] where he had a cardiac arrest, ROSC, and he was intubated and sedated. He was then transferred to [facility] for urther care. Labs showed he had hyperkalemia, acidosis, ALTHEA. There was concern for a swollen left forearm so orthopedics was consulted. On exam his forearm was firm, but exam was limited due to patient's mental status. Therefore TouchPo Android POS pressure monitor was used to measure the [...] to the transverse carpal ligament. 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 Please page Orthopaedic consults ([phone]) with any questions or co ncerns. ?? Tayna Hernandez MD P. [phone] 01/23/22 6:11 AM [...] father afterfentanyl overdose. He was taken to [facility] where he had a cardiac arrest, ROSC, and he was intubated and sedated. He was then transferred to [facility] [place] for further care. Labs showed he had [...] 06/09/2022 Procedure visit Neurology Summer Wiggins MD [facility] NEUROLOGY DEPT [place], [place] [address] (Wo rk) Pending Results Name [...] STAT 02/08/2022 12:01 Resul ts for this (NL) AM EDT procedure are [...] results section. BLOOD GAS VENOUS ([facility]) STAT 01/26/2022 6:19 Re sults for this [...] are i n the results section. CT [place] [facility] Routine 01/24/2022 11:32 Re [...] the results section. ANESTHESIA CONSULT LLE Angio/embolization documented in this encounter Results (ABNORMAL) Differential, Automated (03/23/2022 4:35 AM EDT) athologist Signature Neutrophils % 65.3 % [facility] LABORATORY Neutr Abs (ANC) 5.26 1.70 - [facility] 6.10 [facility] x10(3)/[facility] LABORATORY Lymphocytes % 17.2 % [facility]OR[facility]ORY Lymphocytes Abs 1.4 0.9 - 3.2 [facility] x10(3)/[facility] LABORATORY Monocytes % 11.0 % [facility] LABORATORY Monocyte Abs 0.9 0.3 - 0.9 [facility] x10(3)/[facility] LABORATORY Eosinophils % 4.6 % [facility] LABORATORY Eosinophils Abs 0.4 0.0 - 0.4 [facility] x10(3)/[facility] LABORATORY Basophils % 0.7 % [facility] LABORATORY Basophils Abs 0.1 0.0 - 0.1 [facility] x10(3)/[facility] LABORATORY Immature Gran % 1.20 % [facility]ORATORY Comment: Immature granulocytes(IG's)percentage an d absolute [...] Organization Address City/State/[place] [address] (ABNORMAL) Hemogram (03/23/2022 4:35 AM EDT) Analysis Performed At Patho logist Time Signature WBC 8.1 4.0 - 9.5 [facility] x10(3)/[facility] LABORATORY RBC 2.96 (L) 4.58 - [facility] 5.54 [facility] x10(6)/[facility] LABORATORY Hemoglobin 8.9 (L) 13.7 - [facility] g/dL [facility] LABORATORY Hematocrit 26.2 (L) 40.5 - [facility] 48.5 % [facility] LABORAT[facility] MCV 88.5 82.9 - [facility] 93.1 fL [facility] LABORATORY MCH 30.1 27.5 - [facility] 32.1 pg [facility] LABORATORY MCHC 34.0 32.0 - [facility] 35.7 g/dL [facility] LABORATORY Platelets 230 145 - 357 [facility] x10(3)/[facility] LABORATORY RDWSD 48.9 (H) 36.0 - [facility] 45.0 [facility] LABORATORY RDWCV 15.3 (H) 11.4 - [facility] 13.8 % [facility] LABORATORY MPV 9.8 7.6 - 12.9 [facility] LABORATORY nRBC % Auto 0.0 % [facility] LABORATORY nRBC Abs Auto 0.000 0.000 - [facility] 0.000 [facility] x10(3)/[facility] LABORATORY Specimen Anatomical Collection Method Collection Time Receive d Time (Source) Location / / Volume Laterality Blood 03/23/2022 4:35 AM 5:10 EDT AM EDT Resulting Agency Comment Spec In Lab Jhony Carnes MD HEMATOLOGY ORDERABLES Performing Organization Address City/State/[place] [address] (ABNORMAL) Basic Metabolic Panel (non-fasting) (03/23/2022 3:00 AM EDT) P athologist Signature Glucose Lvl 102 65 - 199 [facility] mg/dL [facility] LABORATORY Comment: Diabetes: >=200 mg/dL plus symp toms BUN 15 10 - 20 mg/dL [facility] LABORATORY Creatinine 0.55 (L) 0.80 - 1.50 mg/dL [facility] LABORATORY Sodium 139 135 - 145 mmol/L [facility] LAB[facility] Potassium 4.1 3.5 - 5.0 mmol/L [facility] LAB[facility] Comment: Please note: ??Patients with WBC >100,00 0 may have falsely elevated Potassium levels. ??For accurate Potassium quantif ication in these patients send serum separator tube (gold top) for subsequent determinations. ??Contact the Clinical Chemistry Laboratory if there are any qu estions. Chloride 101 98 - 107 mmol/L [facility]OR[facility] CO2 25 22 - 31 mmol/L [facility] Anion Gap 13 5 - 15 mmol/L [facility] LABORATORY Calcium 9.6 8.5 - 10.5 mg/dL [facility] LABOR[facility]ORY Estimated GFR 137 >=60 mL/min/1.73 m?? [facility] Comment: This patient's estimated [...] Organization Address City/State/[place] [address] (ABNORMAL) Differential, Automated (03/22/2022 4:15 AM EDT) [facility] Method Time Signature Neutrophils % 63.3 % [facility] LABORATORY Neutr Abs (ANC) 5.68 1.70 - [facility] 6.10 [facility] x10(3)/[facility] LABORATORY Lymphocytes % 17.7 % [facility] LABORATORY Lymphocytes Abs 1.6 0.9 - 3.2 [facility] x10(3)/[facility] LABORATORY Monocytes % 12.3 % [facility] LABORATORY Monocyte Abs 1.1 (H) 0.3 - 0.9 [facility] x10(3)/[facility] LABORATORY Eosinophils % 4.3 % [facility] LABORATORY Eosinophils Abs 0.4 0.0 - 0.4 [facility] x10(3)/[facility] LABORATORY Basophils % 0.7 % [facility]ORATORY Basophils Abs 0.1 0.0 - 0.1 [facility] x10(3)/[facility] LABORATORY Immature Gran % 1.70 % [facility] LABORATORY Comment: Immature granulocytes(IG's)percentage an d absolute [...] Organization Address City/State/ZIP Code Phon e Number [place] [id number] (ABNORMAL) Hemogram (03/22/2022 4:15 AM EDT) Analysis Performed At Patho logist Time Signature WBC 9.0 4.0 - 9.5 [facility] x10(3)/[facility] LABORATORY RBC 3.20 (L) 4.58 - [facility] 5.54 [facility] x10(6)/[facility] LABORATORY Hemoglobin 9.5 (L) 13.7 - [facility] 16.5 g/dL [facility] LABORATORY Hematocrit 28.0 (L) 40.5 - [facility] 48.5 % [facility] LABORATORY MCV 87.5 82.9 - [facility] 93.1 [facility] LABORATORY MCH 29.7 27.5 - [facility] 32.1 pg [facility] LABORATORY MCHC 33.9 32.0 - [facility] 35.7 g/dL [facility] LABORATORY Platelets 248 145 - 357 [facility] x10(3)/[facility] LABORATORY RDWSD 47.8 (H) 36.0 - [facility] 45.0 [facility] LABORATORY RDWCV 14.9 (H) 11.4 - [facility] 13.8 % [facility] LABORATORY MPV 8.8 7.6 - 12.9 [facility] LABORATORY nRBC % Auto 0.0 % [facility] LABORATORY nRBC Abs Auto 0.000 0.000 - [facility] 0.000 [facility] x10(3)/[facility] LABORATORY Specimen Anatomical Collection Method Collection Time Receive d Time (Source) Location / / Volume Laterality Blood 03/22/2022 4:15 AM 4:35 EDT AM EDT Resulting Agency Comment Spec In Lab Batsheva Hill MD HEMATOLOGY ORDERABLES Performing Organization Address City/State/[place] [address] (ABNORMAL) Basic Metabolic Panel (non-fasting) (03/22/2022 4:15 AM EDT) P athologist Signature Glucose Lvl 98 65 - 199 [facility] mg/dL [facility] LABOR[facility]ORY Comment: Diabetes: >=200 mg/dL plus symp toms BUN 16 10 - 20 mg/dL [facility] LABORATORY Creatinine 0.52 (L) 0.80 - 1.50 mg/dL [facility] LABORATORY Sodium 137 135 - 145 mmol/L [facility] LABOR[facility] Potassium 4.0 3.5 - 5.0 mmol/L [facility] Comment: Please note: ??Patients with WBC >100,00 0 may have falsely elevated Potassium levels. ??For accurate Potassium quantif ication in these patients send serum separator tube (gold top) for subsequent determinations. ??Contact the Clinical Chemistry Laboratory if there are any qu estions. Chloride 100 98 - 107 mmol/L [facility] CO2 24 22 - 31 mmol/L [facility] Anion Gap 13 5 - 15 mmol/L [facility]OR[facility] Calcium 9.6 8.5 - 10.5 mg/dL [facility] Estimated GFR 139 >=60 mL/min/1.73 m?? [facility] Comment: This patient's estimated [...] Organization Address City/State/[place] [address] (ABNORMAL) Basic Metabolic Panel (non-fasting) (03/20/2022 12:27 PM EDT) athologist Signature Glucose Lvl 94 65 - 199 [facility] mg/dL [facility] LAB[facility] Comment: Diabetes: >=200 mg/dL plus symp toms BUN 13 10 - 20 mg/dL [facility] Creatinine 0.67 (L) 0.80 - 1.50 mg/dL [facility] LABOR[facility] Sodium 140 135 - 145 mmol/L [facility] Potassium 4.3 3.5 - 5.0 mmol/L [facility] Comment: Please note: ??Patients with WBC >100,00 0 may have falsely elevated Potassium levels. ??For accurate Potassium quantif ication in these patients send serum separator tube (gold top) for subsequent determinations. ??Contact the Clinical Chemistry Laboratory if there are any qu estions. Chloride 104 98 - 107 mmol/L [facility] CO2 23 22 - 31 mmol/L [facility] Anion Gap 13 5 - 15 mmol/L [facility] Calcium 9.6 8.5 - 10.5 mg/dL [facility] Estimated GFR 129 >=60 mL/min/1.73 m?? [facility] Comment: This patient's estimated [...] Medina MD CHEMISTRY ORDERABLES Performing Organization Address City/[facility]/ZIP Code Phon e Number [address] Green Tube HOLD (03/20/2022 12:27 PM EDT) P athologist Signature Green Hold Sample in [facility]. [facility] LABORATORY Comment: Collection date/time has been modified t o: 12:27:00. ??Previous collection date/time: 12:28:00 . Corrected from Sample in lab. [NA] on 12:29:23 EDT by Kevon Dickens Specimen Anatomical Collection Method Collection Time Receive d Time (Source) Location / / Volume Laterality Blood No Charge / 03/20/2022 12:27 03/20/2022 Unknown PM EDT 12:28 PM EDT Veto Hidalgo MD CHEMISTRY ORDERABLES Performing Organization Address City/[facility]/ZIP Code Phon e Number [address] Phosphorus (03/20/2022 12:00 PM EDT) P athologist Signature Phosphorus 3.8 2.5 - 4.5 [facility]dL [facility] LABORATORY Specimen Anatomical Collection Method Collection Time Receive d Time (Source) Location / / Volume Laterality Blood 03/20/2022 12:00 03/20/2022 PM EDT 12:26 PM EDT Resulting Agency Comment Spec In Lab Jeanette Chatterjee MD CHEMISTRY ORDERABLES Performing Organization Address City/[facility]/ZIP [facility] Phon e Number [address] Magnesium (03/20/2022 12:00 PM EDT) P athologist Signature Magnesium 0.75 0.69 - 1.07 [facility] mmol/L [facility] LABORATORY Specimen Anatomical Collection Method Collection Time Receive d Time (Source) Location / / Volume Laterality Blood 03/20/2022 12:00 03/20/2022 PM EDT 12:26 PM EDT Resulting Agency Comment Spec In Lab Jeanette Chatterjee MD CHEMISTRY ORDERABLES Performing Organization Address City/[facility] Phon e Number [address] Vancomycin, trough (03/14/2022 3:09 PM EDT) P athologist Signature Vanc Trough 16.1 mg/L [facility] LABORATORY Comment: Therapeutic range for complicated infect [...] Sandoval MD CHEMISTRY ORDERABLES Performing Organization Address City/[facility]/ZIP Code Phon e Number [address] (ABNORMAL) Differential, Automated (03/13/2022 6:02 AM EDT) P athologist Signature Neutrophils % 68.2 % [facility] LABORATORY Neutr Abs (ANC) 5.47 1.70 - [facility] 6.10 [facility] x10(3)/[facility] LABORATORY Lymphocytes % 17.0 % [facility] LABORATORY Lymphocytes Abs 1.4 0.9 - 3.2 [facility] x10(3)/[facility] LABORATORY Monocytes % 8.0 % [facility] LABORATORY Monocyte Abs 0.6 0.3 - 0.9 [facility] x10(3)/[facility] LABORATORY Eosinophils % 4.2 % [facility] LABORATORY Eosinophils Abs 0.3 0.0 - 0.4 [facility] x10(3)/[facility] LABORATORY Basophils % 0.5 % [facility] LABORATORY Basophils Abs 0.0 0.0 - 0.1 [facility] x10(3)/[facility] LABORATORY Immature Gran % 2.10 % [facility] LABORATORY Comment: Immature granulocytes(IG's)percentage an d absolute [...] Organization Address City/State/[place] [address] (ABNORMAL) Hemogram (03/13/2022 6:02 AM EDT) Analysis Performed At Patho logist Time Signature WBC 8.0 4.0 - 9.5 [facility] x10(3)/[facility] LABORATORY RBC 3.12 (L) 4.58 - [facility] 5.54 [facility] x10(6)/[facility] LABORATORY Hemoglobin 9.1 (L) 13.7 - [facility] 16.5 g/dL [facility] LABORATORY Hematocrit 27.5 (L) 40.5 - [facility] [place] 48.5 % [facility] LABORATORY MCV 88.1 82.9 - [facility] MAND[place] 93.1 [facility] LABORATORY MCH 29.2 27.5 - [facility] [place] 32.1 pg [facility] LABORATORY MCHC 33.1 32.0 - [facility] [place] 35.7 g/dL [facility] LABORATORY Platelets 254 145 - 357 [facility] x10(3)/[facility] LABORATORY RDWSD 49.4 (H) 36.0 - [facility] [place] 45.0 [facility] LABORATORY RDWCV 15.5 (H) 11.4 - [facility] MANDO 13.8 % [facility] LABORATORY MPV 8.4 7.6 - 12.9 [facility] [place] fL [facility] LABORATORY nRBC % Auto 0.0 % [facility] LABORATORY nRBC Abs Auto 0.000 0.000 - [facility] [place] 0.000 [facility] x10(3)/[facility] LABORATORY Specimen Anatomical Collection Method Collection Time Receive d Time (Source) Location / / Volume Laterality Blood 03/13/2022 6:02 AM 2 6:17 EDT AM EDT Resulting Agency Comment Spec In Lab Nancy Chahal MD HEMATOLOGY ORDERABLES Performing Organization Address City/State/[place] [address] (ABNORMAL) Phosphorus (03/13/2022 6:02 AM EDT) P athologist Signature Phosphorus 4.9 (H) 2.5 - 4.5 [facility] [place] mg/dL [facility] LABORATORY Specimen Anatomical Collection Method Collection Time Receive d Time (Source) Location / / Volume Laterality Blood 03/13/2022 6:02 AM 2 6:17 EDT AM EDT Resulting Agency Comment Spec In Lab Floridalma Sandoval MD CHEMISTRY ORDERABLES Performing Organization Address City/State/[place] [address] [facility] [address] Magnesium (03/13/2022 6:02 AM EDT) athologist Signature Magnesium 0.70 0.69 - 1.07 [facility] mmol/L [facility] LABORATORY Specimen Anatomical Collection Method Collection Time Receive d Time (Source) Location / / Volume Laterality Blood 03/13/2022 6:02 AM 6:17 EDT AM EDT Resulting Agency Comment Spec In Lab Floridalma Sandoval MD CHEMISTRY ORDERABLES Performing Organization Address City/State/ZIP Code Phon e Number [place], [place] [id number] [place] [address] (ABNORMAL) Basic Metabolic Panel (non-fasting) (03/13/2022 6:02 AM EDT) athologist Signature Glucose Lvl 100 65 - 199 [facility] mg/dL [facility] LABORATORY Comment: Diabetes: >=200 mg/dL plus symp toms BUN 12 10 - 20 mg/dL [facility] LABORATORY Creatinine 0.65 (L) 0.80 - 1.50 mg/dL [facility] LABORATORY Sodium 139 135 - 145 mmol/L [facility] LABORATORY Potassium 3.9 3.5 - 5.0 mmol/L [facility] LABORATORY Comment: Please note: ??Patients with WBC >100,00 0 may have falsely elevated Potassium levels. ??For accurate Potassium quantif ication in these patients send serum separator tube (gold top) for subsequent determinations. ??Contact the Clinical Chemistry Laboratory if there are any qu estions. Chloride 101 98 - 107 mmol/L [facility] LABORATORY CO2 25 22 - 31 mmol/L [facility] LABORATORY Anion Gap 13 5 - 15 mmol/L [facility] LABORATORY Calcium 9.6 8.5 - 10.5 mg/dL [facility] LABORATORY Estimated GFR 130 >=60 mL/min/1.73 m?? [facility] LABORATORY Comment: This patient's estimated [...] Organization Address City/State/[place] [address] (ABNORMAL) Differential, Automated (03/10/2022 5:45 AM EDT) [facility] gist Method Time Signature Neutrophils % 58.5 % [facility] LABORATORY Neutr Abs (ANC) 4.21 1.70 - [facility] 6.10 [facility] x10(3)[facility] LABORATORY Lymphocytes % 17.8 % [facility] LABORATORY Lymphocytes Abs 1.3 0.9 - 3.2 [facility] x10(3)[facility] LABORATORY Monocytes % 13.5 % [facility] LABORATORY Monocyte Abs 1.0 (H) 0.3 - 0.9 [facility] x10(3)/[facility] LABORATORY Eosinophils % 5.3 % [facility] LABORATORY Eosinophils Abs 0.4 0.0 - 0.4 [facility] x10(3)/[facility] LABORATORY Basophils % 0.6 % [facility] LABORATORY Basophils Abs 0.0 0.0 - 0.1 [facility] x10(3)/[facility] LABORATORY Immature Gran % 4.30 % [facility] LABORATORY Comment: Immature granulocytes(IG's)percentage an d absolute [...] Organization Address City/State/[place] [address] (ABNORMAL) Hemogram (03/10/2022 5:45 AM EDT) Analysis Performed At Patho logist Time Signature WBC 7.2 4.0 - 9.5 [facility] x10(3)/[facility] LABORATORY RBC 3.13 (L) 4.58 - [facility] 5.54 [facility] x10(6)/[facility] LABORATORY Hemoglobin 9.1 (L) 13.7 - [facility] 16.5 g/dL [facility] LABORATORY Hematocrit 27.3 (L) 40.5 - [facility] 48.5 % [facility] LABORATORY MCV 87.2 82.9 - [facility] 93.1 [facility] LABORATORY MCH 29.1 27.5 - [facility] [place]AND[place] 32.1 pg [facility] LABORATORY MCHC 33.3 32.0 - [facility] 35.7 g/dL [facility] LABORATORY Platelets 256 145 - 357 [facility] x10(3)/[facility] LABORATORY RDWSD 50.6 (H) 36.0 - [facility] [place] 45.0 [facility] LABORATORY RDWCV 15.9 (H) 11.4 - [facility] [place] 13.8 % [facility] LABORATORY MPV 8.5 7.6 - 12.9 [facility] LABORATORY nRBC % Auto 0.0 % [facility] LABORATORY nRBC Abs Auto 0.000 0.000 - [facility] MAND[place] 0.000 [facility] x10(3)/[facility] LABORATORY Specimen Anatomical Collection Method Collection Time Receive d Time (Source) Location / / Volume Laterality Blood 03/10/2022 5:45 AM 2 6:05 EDT AM EDT Resulting Agency Comment Spec In Lab Nancy Chahal MD HEMATOLOGY ORDERABLES Performing Organization Address City/[facility]/ZIP Code Phon e Number [address] (ABNORMAL) Phosphorus (03/10/2022 5:45 AM EDT) P athologist Signature Phosphorus 4.6 (H) 2.5 - 4.5 [facility] mg/dL [facility] LABORATORY Specimen Anatomical Collection Method Collection Time Receive d Time (Source) Location / / Volume Laterality Blood 03/10/2022 5:45 AM 2 6:05 EDT AM EDT Resulting Agency Comment Spec In Lab Floridalma Sandoval MD CHEMISTRY ORDERABLES Performing Organization Address City/[facility]/[place] [address] Magnesium (03/10/2022 5:45 AM EDT) P athologist Signature Magnesium 0.77 0.69 - 1.07 [facility] mmol/L [facility] LABORATORY Specimen Anatomical Collection Method Collection Time Receive d Time (Source) Location / / Volume Laterality Blood 03/10/2022 5:45 AM 2 6:05 EDT AM EDT Resulting Agency Comment Spec In Lab Floridalma Sandoval MD CHEMISTRY ORDERABLES Performing Organization Address City/State/[place] [address] Basic Metabolic Panel (non-fasting) (03/10/2022 5:45 AM EDT) P athologist Signature Glucose Lvl 95 65 - 199 [facility] mg/dL [facility] LABORATORY Comment: Diabetes: >=200 mg/dL plus symp toms BUN 20 10 - 20 mg/dL [facility] LABORATORY Creatinine 0.85 0.80 - 1.50 mg/dL [facility] LABORATORY Sodium 142 135 - 145 mmol/L [facility] LABORATORY Potassium 4.0 3.5 - 5.0 mmol/L [facility] LABORATORY Comment: Please note: ??Patients with WBC >100,00 0 may have falsely elevated Potassium levels. ??For accurate Potassium quantif ication in these patients send serum separator tube (gold top) for subsequent determinations. ??Contact the Clinical Chemistry Laboratory if there are any qu estions. Chloride 103 98 - 107 mmol/L [facility] LABORATORY CO2 25 22 - 31 mmol/L [facility] LABORATORY Anion Gap 14 5 - 15 mmol/L [facility] LABORATORY Calcium 9.1 8.5 - 10.5 mg/dL [facility] LABORATORY Estimated GFR 120 >=60 mL/min/1.73 m?? [facility] LABORATORY Comment: This patient's estimated [...] Organization Address City/State/[place] [address] Anaerobic Culture (03/05/2022 11:05 AM EDT) [facility] gist Method Time Signature Anaerobic No anaerobic [facility] Culture organisms [facility] LABORATORY Specimen Anatomical Collection Method Collection Time Receive d Time (Source) Location / / Volume Laterality Fluid 03/05/2022 11:05 03/05/2022 AM EDT 12:02 PM EDT Comment: Fluid from left thigh Resulting Agency Comment Spec In Lab Elaine Dos Santos MD MICROBIOLOGY - GENERAL ORDER JT Performing Organization Address City/State/ZIP Code [place] [address] (ABNORMAL) Body Fluid Culture, Aerobic (03/05/2022 11:05 AM EDT) Component Value Ref Test Analysis Performed At [facility] gist Range Method Time Signature Body Fluid Moderate Staphylococcus aureus, MRSA [facility] Culture Many Pseudomonas aeruginosa HI [facility] (A) [facility] LABORATORY Gram Stain Cytocentrifuge Gram Stain performed [facility] Neutrophils seen H[facility] Rare Gram Positive Cocci seen [facility] Gram Negative Rods seen [facility] (A) LABORATORY Organism Staphylococcus [facility] aureus, MRSA (A) [facility] LABORATORY Organism Pseudomonas [facility] aeruginosa (A) [facility] LABORATORY Organism Gram Positive [facility] Cocci (A) [facility] LABORATORY Organism Gram Negative [facility] Rods (A) [facility] LABORATORY Specimen Anatomical Collection Method [...] Comment: Gentamicin is not a ppropriate for [place]-therapy. Staphylococcus aureus, mrsa Linezolid VITEK 2 METHOD [...] Organization Address City/State/[place] [address] (ABNORMAL) Basic Metabolic Panel (non-fasting) (03/04/2022 12:54 AM EDT) P athologist Signature Glucose Lvl 97 65 - 199 [facility] mg/dL [facility] LABORATORY Comment: Diabetes: >=200 mg/dL plus symp toms BUN 23 (H) 10 - 20 mg/dL [facility] LABORATORY Creatinine 1.23 0.80 - 1.50 mg/dL [facility] LABORATORY Sodium 141 135 - 145 mmol/L [facility] LABORATORY Potassium 3.7 3.5 - 5.0 mmol/L [facility] LABORATORY Comment: Please note: ??Patients with WBC >100,00 0 may have falsely elevated Potassium levels. ??For accurate Potassium quantif ication in these patients send serum separator tube (gold top) for subsequent determinations. ??Contact the Clinical Chemistry Laboratory if there are any qu estions. Chloride 101 98 - 107 mmol/L [facility] LABORATORY CO2 25 22 - 31 mmol/L [facility] LABORATORY Anion Gap 15 5 - 15 mmol/L [facility] LABORATORY Calcium 8.7 8.5 - 10.5 mg/dL [facility] LABORATORY Estimated GFR 81 >=60 mL/min/1.73 m?? [facility] LABORATORY Comment: This patient's estimated [...] Organization Address City/State/[place] [address] PICC Line: Contact Vascular Access Page [phone] Extremity to exclude: DO NOT use LEFT [...] the planned procedu re. Hand Hygiene: The multimedia production assistant did perform hand hygiene pr ior to line insertion. Catheter type: PICC Lot number: [id number] Procedure Technique: Skin was prepped with chlorhexidine. [...] who have questions please contact the health administrator health care facility that requested your imaging first. ? Electronically signed by: Danielle Figueroa MD, [facility] ([phone]), at 03/03/2022 2:49 PM Narrative 03/03/2022 2:49 [...] ho have questions please contact the health administrator health care facility that requested your imaging first. Electronically signed by: Danielle Figueora MD, [facility] ([phone]), at 03/03/2022 2:49 PM Jayme Armstrong MD IMG FLUORO ORDERABLES (ABNORMAL) Differential, Automated (03/03/2022 4:34 AM EDT) Patholo gist Method Time Signature Neutrophils % 49.2 % [facility] LABORATORY Neutr Abs (ANC) 3.20 1.70 - [facility] 6.10 [facility] x10(3)/[facility] LABORATORY Lymphocytes % 23.5 % [facility] LABORATORY Lymphocytes Abs 1.5 0.9 - 3.2 [facility] x10(3)/[facility] LABORATORY Monocytes % 12.9 % [facility] LABORATORY Monocyte Abs 0.8 0.3 - 0.9 [facility] x10(3)/[facility] LABORATORY Eosinophils % 10.4 % [facility] LABORATORY Eosinophils Abs 0.7 (H) 0.0 - 0.4 [facility] x10(3)/[facility] LABORATORY Basophils % 0.8 % [facility] LABORATORY Basophils Abs 0.0 0.0 - 0.1 [facility] x10(3)/[facility] LABORATORY Immature Gran % 3.20 % [facility] LABORATORY Comment: Immature granulocytes(IG's)percentage an d absolute [...] Organization Address City/State/[place] [address] (ABNORMAL) Hemogram (03/03/2022 4:34 AM EDT) Analysis Performed At Patho logist Time Signature WBC 6.5 4.0 - 9.5 [facility] x10(3)/[facility] LABORATORY RBC 3.12 (L) 4.58 - [facility] 5.54 [facility] x10(6)/[facility] LABORATORY Hemoglobin 9.1 (L) 13.7 - [facility] 16.5 g/dL [facility] LABORATORY Hematocrit 26.8 (L) 40.5 - [facility] [place] 48.5 % [facility] LABORATORY MCV 85.9 82.9 - [facility] [place] 93.1 [facility] LABORATORY MCH 29.2 27.5 - [facility] [place] 32.1 pg [facility] LABORATORY MCHC 34.0 32.0 - [facility] [place] 35.7 g/dL [facility] LABORATORY Platelets 276 145 - 357 [facility] x10(3)/[facility] LABORATORY RDWSD 50.6 (H) 36.0 - [facility] [place] 45.0 [facility] LABORATORY RDWCV 16.1 (H) 11.4 - [facility] [place] 13.8 % [facility] LABORATORY MPV 7.8 7.6 - 12.9 [facility] fL [facility] LABORATORY nRBC % Auto 0.0 % [facility] LABORATORY nRBC Abs Auto 0.000 0.000 - [facility] [place] 0.000 [facility] x10(3)/[facility] LABORATORY Specimen Anatomical Collection Method Collection Time Receive d Time (Source) Location / / Volume Laterality Blood 03/03/2022 4:34 AM 2 4:42 EDT AM EDT Resulting Agency Comment Spec In Lab Collette Valente MD HEMATOLOGY ORDERABLES Performing Organization Address City/[facility]/[place] [address] Magnesium (03/03/2022 4:34 AM EDT) P athologist Signature Magnesium 0.80 0.69 - 1.07 [facility] mmol/L [facility] LABORATORY Specimen Anatomical Collection Method Collection Time Receive d Time (Source) Location / / Volume Laterality Blood 03/03/2022 4:34 AM 2 4:42 EDT AM EDT Resulting Agency Comment Spec In Lab Jayme Armstrong MD CHEMISTRY ORDERABLES Performing Organization Address City/[facility]/[place] [address] (ABNORMAL) Phosphorus (03/03/2022 4:34 AM EDT) athologist Signature Phosphorus 5.1 (H) 2.5 - 4.5 [facility] mg/dL [facility] LABORATORY Specimen Anatomical Collection Method Collection Time Receive d Time (Source) Location / / Volume Laterality Blood 03/03/2022 4:34 AM 4:42 EDT AM EDT Resulting Agency Comment Spec In Lab Jayme Armstrong MD CHEMISTRY ORDERABLES Performing Organization Address City/State/[place] [address] (ABNORMAL) Basic Metabolic Panel (non-fasting) (03/03/2022 4:34 AM EDT) athologist Signature Glucose Lvl 105 65 - 199 [facility] mg/dL [facility] LABORATORY Comment: Diabetes: >=200 mg/dL plus symp toms BUN 28 (H) 10 - 20 mg/dL [facility] LABORATORY Creatinine 1.27 0.80 - 1.50 mg/dL [facility] LABORATORY Sodium 142 135 - 145 mmol/L [facility] LABORATORY Potassium 3.8 3.5 - 5.0 mmol/L [facility] LABORATORY Comment: Please note: ??Patients with WBC >100,00 0 may have falsely elevated Potassium levels. ??For accurate Potassium quantif ication in these patients send serum separator tube (gold top) for subsequent determinations. ??Contact the Clinical Chemistry Laboratory if there are any qu estions. Chloride 104 98 - 107 mmol/L [facility] LABORATORY CO2 25 22 - 31 mmol/L [facility] LABORATORY Anion Gap 13 5 - 15 mmol/L [facility] LABORATORY Calcium 9.0 8.5 - 10.5 mg/dL [facility] LABORATORY Estimated GFR 78 >=60 mL/min/1.73 m?? [facility] LABORATORY Comment: This patient's estimated [...] Armstrong MD CHEMISTRY ORDERABLES Performing Organization Address City/[facility]/ZIP Code Phon e Number [address] Albumin Level (03/02/2022 4:23 AM EDT) athologist Signature Albumin 3.3 3.2 - 5.2 [facility] g/dL [facility] LABORATORY Specimen Anatomical Collection Method Collection Time Receive d Time (Source) Location / / Volume Laterality Blood Venous Draw / 03/02/2022 4:23 AM 03/02/20 4:53 Unknown EDT AM EDT Resulting Agency Comment Spec In Lab Nancy Chahal MD CHEMISTRY ORDERABLES Performing Organization Address City/State/[place] [address] (ABNORMAL) Basic Metabolic Panel (non-fasting) (03/02/2022 4:23 AM EDT) athologist Signature Glucose Lvl 99 65 - 199 [facility] mg/dL [facility] LABORATORY Comment: Diabetes: >=200 mg/dL plus symp toms BUN 32 (H) 10 - 20 mg/dL [facility] LABORATORY Creatinine 1.33 0.80 - 1.50 mg/dL [facility] LABORATORY Sodium 138 135 - 145 mmol/L [facility] LABORATORY Potassium 4.1 3.5 - 5.0 mmol/L [facility] Comment: Please note: ??Patients with WBC >100,00 0 may have falsely elevated Potassium levels. ??For accurate Potassium quantif ication in these patients send serum separator tube (gold top) for subsequent determinations. ??Contact the Clinical Chemistry Laboratory if there are any qu estions. Chloride 100 98 - 107 mmol/L [facility] LABORATORY CO2 25 22 - 31 mmol/L [facility] LABORATORY Anion Gap 13 5 - 15 mmol/L [facility] LABORATORY Calcium 9.0 8.5 - 10.5 mg/dL [facility] LABORATORY Estimated GFR 74 >=60 mL/min/1.73 m?? [facility] LABORATORY Comment: This patient's estimated [...] / Volume Laterality Blood 03/02/2022 4:23 AM 2 4:50 EDT AM EDT Resulting Agency Comment Spec In Lab Jayme Armstrong MD CHEMISTRY ORDERABLES Performing Organization Address City/State/[place] [address] (ABNORMAL) Differential, Automated (03/01/2022 2:00 AM EDT) [facility] gist Method Time Signature Neutrophils % 65.1 % [facility] LABORATORY Neutr Abs (ANC) 6.08 1.70 - [facility] 6.10 [facility] x10(3)/[facility] LABORATORY Lymphocytes % 15.0 % [facility] LABORATORY Lymphocytes Abs 1.4 0.9 - 3.2 [facility] x10(3)/[facility] LABORATORY Monocytes % 12.0 % [facility] LABORATORY Monocyte Abs 1.1 (H) 0.3 - 0.9 [facility] x10(3)/[facility] LABORATORY Eosinophils % 5.4 % [facility] LABORATORY Eosinophils Abs 0.5 (H) 0.0 - 0.4 [facility] x10(3)/[facility] LABORATORY Basophils % 0.6 % [facility] LABORATORY Basophils Abs 0.1 0.0 - 0.1 [facility] x10(3)/[facility] LABORATORY Immature Gran % 1.90 % [facility] LABORATORY Comment: Immature granulocytes(IG's)percentage an d absolute [...] Organization Address City/State/[place] [address] (ABNORMAL) Hemogram (03/01/2022 2:00 AM EDT) Analysis Performed At Patho logist Time Signature WBC 9.3 4.0 - 9.5 [facility] x10(3)/[facility] LABORATORY RBC 2.92 (L) 4.58 - [facility] 5.54 [facility] x10(6)/[facility] LABORATORY Hemoglobin 8.5 (L) 13.7 - [facility] g/dL [facility] LABORATORY Hematocrit 25.5 (L) 40.5 - [facility] 48.5 % [facility] LABORATORY MCV 87.3 82.9 - [facility] 93.1 [facility] LABORATORY MCH 29.1 27.5 - [facility] [place] 32.1 pg [facility] LABORATORY MCHC 33.3 32.0 - [facility] 35.7 g/dL [facility] LABORATORY Platelets 288 145 - 357 [facility] x10(3)/[facility] LABORATORY RDWSD 52.2 (H) 36.0 - [facility] 45.0 [facility] LABORATORY RDWCV 16.4 (H) 11.4 - [facility] [place] 13.8 % [facility] LABORATORY MPV 8.0 7.6 - 12.9 [facility] LABORATORY nRBC % Auto 0.0 % [facility] LABORATORY nRBC Abs Auto 0.000 0.000 - [facility] 0.000 [facility] x10(3)/[facility] LABORATORY Specimen Anatomical Collection Method Collection Time Receive d Time (Source) Location / / Volume Laterality Blood 03/01/2022 2:00 AM 2 2:03 EDT AM EDT Resulting Agency Comment Spec In Lab Veto Hidalgo MD HEMATOLOGY ORDERABLES Performing Organization Address City/State/[place] [address] Magnesium (03/01/2022 2:00 AM EDT) P athologist Signature Magnesium 0.77 0.69 - 1.07 [facility] mmol/L [facility] LABORATORY Specimen Anatomical Collection Method Collection Time Receive d Time (Source) Location / / Volume Laterality Blood 03/01/2022 2:00 AM 2 2:03 EDT AM EDT Resulting Agency Comment Spec In Lab Jayme Armstrong MD CHEMISTRY ORDERABLES Performing Organization Address City/State/[place] [address] (ABNORMAL) Phosphorus (03/01/2022 2:00 AM EDT) P athologist Signature Phosphorus 4.8 (H) 2.5 - 4.5 [facility] [place] mg/dL [facility] LABORATORY Specimen Anatomical Collection Method Collection Time Receive d Time (Source) Location / / Volume Laterality Blood 03/01/2022 2:00 AM 2 2:03 EDT AM EDT Resulting Agency Comment Spec In Lab Jayme Armstrong MD CHEMISTRY ORDERABLES Performing Organization Address City/State/[place] [address] (ABNORMAL) Basic Metabolic Panel (non-fasting) (03/01/2022 2:00 AM EDT) athologist Signature Glucose Lvl 106 65 - 199 [facility] mg/dL [facility] LABORATORY Comment: Diabetes: >=200 mg/dL plus symp toms BUN 38 (H) 10 - 20 mg/dL [facility] LABORATORY Creatinine 1.73 (H) 0.80 - 1.50 mg/dL [facility] LABORATORY Sodium 140 135 - 145 mmol/L [facility] LABORATORY Potassium 4.3 3.5 - 5.0 mmol/L [facility] LABORATORY Comment: Please note: ??Patients with WBC >100,00 0 may have falsely elevated Potassium levels. ??For accurate Potassium quantif ication in these patients send serum separator tube (gold top) for subsequent determinations. ??Contact the Clinical Chemistry Laboratory if there are any qu estions. Chloride 102 98 - 107 mmol/L [facility] LABORATORY CO2 24 22 - 31 mmol/L [facility] LABORATORY Anion Gap 14 5 - 15 mmol/L [facility] LABORATORY Calcium 9.2 8.5 - 10.5 mg/dL [facility] LABORATORY Estimated GFR 54 (L) >=60 mL/min/1.73 m?? [facility] LABORATORY Comment: This patient's estimated [...] Organization Address City/State/[place] [address] (ABNORMAL) Ferritin (03/01/2022 2:00 AM EDT) P athologist Signature Ferritin 693 (H) 30 - 400 [facility] ng/mL [facility] LABORATORY Comment: Pediatric reference ranges not verified at [facility] [place] [place], interpret with caution. Reference ranges for females greater trina n 50 years of age approach values for men, i.e., 30-400 ng/mL. Specimen Anatomical Collection Method Collection Time Receive d Time (Source) Location / / Volume Laterality Blood 03/01/2022 2:00 AM 2 2:03 EDT AM EDT Resulting Agency Comment Spec In Lab Allison Kelly MD CHEMISTRY ORDERABLES Performing Organization Address City/[facility]/[place]IP [place] [address] (ABNORMAL) Iron and TIBC (03/01/2022 2:00 AM EDT) Analysis Performed At Patho logist Time Signature Iron 21 (L) 45 - 160 [facility] mcg/dL [facility] LABORATORY TIBC 185 (L) 250 - 450 [facility] mcg/dL [facility] LABORATORY Iron Saturation 11 (L) 20 - 50 % [facility] LABORATORY Specimen Anatomical Collection Method Collection Time Receive d Time (Source) Location / / Volume Laterality Blood 03/01/2022 2:00 AM 2 2:03 EDT AM EDT Resulting Agency Comment Spec In Lab Allison Kelly MD CHEMISTRY ORDERABLES Performing Organization Address City/State/[place] [address] (ABNORMAL) Basic Metabolic Panel (non-fasting) (02/28/2022 3:43 AM EDT) P athologist Signature Glucose Lvl 110 65 - 199 [facility] mg/dL [facility] LABORATORY Comment: Diabetes: >=200 mg/dL plus symp toms BUN 44 (H) 10 - 20 mg/dL [facility] LABORATORY Creatinine 1.92 (H) 0.80 - 1.50 mg/dL [facility] LABORATORY Sodium 138 135 - 145 mmol/L [facility] LABORATORY Potassium 4.3 3.5 - 5.0 mmol/L [facility] LABORATORY Comment: Please note: ??Patients with WBC >100,00 0 may have falsely elevated Potassium levels. ??For accurate Potassium quantif ication in these patients send serum separator tube (gold top) for subsequent determinations. ??Contact the Clinical Chemistry Laboratory if there are any qu estions. Chloride 103 98 - 107 mmol/L [facility] LABORATORY CO2 24 22 - 31 mmol/L [facility] LABORATORY Anion Gap 11 5 - 15 mmol/L [facility] LABORATORY Calcium 9.1 8.5 - 10.5 mg/dL [facility] LABORATORY Estimated GFR 47 (L) >=60 mL/min/1.73 m?? [facility] LABORATORY Comment: This patient's estimated [...] / Volume Laterality Blood 02/28/2022 3:43 AM 2 3:54 EDT AM EDT Resulting Agency Comment Spec In Lab Jayme Armstrong MD CHEMISTRY ORDERABLES Performing Organization Address City/State/ZIP Code Phon e Number [address] (ABNORMAL) Differential, Automated (02/27/2022 4:36 AM EDT) P athologist Signature Neutrophils % 55.6 % [facility] LABORATORY Neutr Abs (ANC) 3.68 1.70 - [facility] 6.10 [facility] x10(3)/[facility] LABORATORY Lymphocytes % 21.3 % [facility] LABORATORY Lymphocytes Abs 1.4 0.9 - 3.2 [facility] x10(3)/[facility] LABORATORY Monocytes % 11.8 % [facility] LABORATORY Monocyte Abs 0.8 0.3 - 0.9 [facility] x10(3)/[facility] LABORATORY Eosinophils % 5.9 % [facility] LABORATORY Eosinophils Abs 0.4 0.0 - 0.4 [facility] x10(3)/[facility] LABORATORY Basophils % 0.9 % [facility] LABORATORY Basophils Abs 0.1 0.0 - 0.1 [facility] x10(3)/[facility] LABORATORY Immature Gran % 4.50 % [facility] LABORATORY Comment: Immature granulocytes(IG's)percentage an d absolute [...] Hidalgo MD HEMATOLOGY ORDERABLES Performing Organization Address City/[facility]/ZIP Code Phon e Number [address] (ABNORMAL) Hemogram (02/27/2022 4:36 AM EDT) Analysis Performed At Patho logist Time Signature WBC 6.6 4.0 - 9.5 [facility] x[facility](3[facility] LABORATORY RBC 2.74 (L) 4.58 - [facility] [place] 5.54 [facility] x10(6)/[facility] LABORATORY Hemoglobin 8.0 (L) 13.7 - [facility] 16.5 g/dL [facility] LABORATORY Hematocrit 24.7 (L) 40.5 - [facility] 48.5 % [facility] LABORATORY MCV 90.1 82.9 - [facility] 93.1 [facility] LABORATORY MCH 29.2 27.5 - [facility] 32.1 pg [facility] LABORATORY MCHC 32.4 32.0 - [facility] 35.7 g/dL [facility] LABORATORY Platelets 267 145 - 357 [facility] x10(3)/[facility] LABORATORY RDWSD 56.6 (H) 36.0 - [facility] 45.0 [facility] LABORATORY RDWCV 17.2 (H) 11.4 - [facility] 13.8 % [facility] LABORATORY MPV 8.1 7.6 - 12.9 [facility] LABORATORY nRBC % Auto 0.0 % [facility] LABORATORY nRBC Abs Auto 0.000 0.000 - [facility] 0.000 [facility] x10(3)/[facility] LABORATORY Specimen Anatomical Collection Method Collection Time Receive d Time (Source) Location / / Volume Laterality Blood 02/27/2022 4:36 AM 4:48 EDT AM EDT Resulting Agency Comment Spec In Lab Veto Hidalgo MD HEMATOLOGY ORDERABLES Performing Organization Address City/State/ZIP Code Phon e Number [address] Magnesium (02/27/2022 4:36 AM EDT) P athologist Signature Magnesium 0.74 0.69 - 1.07 [facility] mmol/L [facility] LABORATORY Specimen Anatomical Collection Method Collection Time Receive d Time (Source) Location / / Volume Laterality Blood 02/27/2022 4:36 AM 2 4:48 EDT AM EDT Resulting Agency Comment Spec In Lab Jayme Armstrong MD CHEMISTRY ORDERABLES Performing Organization Address City/State/ZIP Code Phon e Number [address] Phosphorus (02/27/2022 4:36 AM EDT) athologist Signature Phosphorus 4.5 2.5 - 4.5 [facility] mg/dL [facility] LABORATORY Specimen Anatomical Collection Method Collection Time Receive d Time (Source) Location / / Volume Laterality Blood 02/27/2022 4:36 AM 2 4:48 EDT AM EDT Resulting Agency Comment Spec In Lab Jayme Armstrong MD CHEMISTRY ORDERABLES Performing Organization Address City/[facility] [place] [address] (ABNORMAL) Basic Metabolic Panel (non-fasting) (02/27/2022 4:36 AM EDT) athologist Signature Glucose Lvl 108 65 - 199 [facility] mg/dL [facility] LABORATORY Comment: Diabetes: >=200 mg/dL plus symp toms BUN 57 (H) 10 - 20 mg/dL [facility] LABORATORY Creatinine 2.29 (H) 0.80 - 1.50 mg/dL [facility] LABORATORY Sodium 142 135 - 145 mmol/L [facility] LABORATORY Potassium 4.6 3.5 - 5.0 mmol/L [facility] LABORATORY Comment: Please note: ??Patients with WBC >100,00 0 may have falsely elevated Potassium levels. ??For accurate Potassium quantif ication in these patients send serum separator tube (gold top) for subsequent determinations. ??Contact the Clinical Chemistry Laboratory if there are any qu estions. Chloride 105 98 - 107 mmol/L [facility] LABORATORY CO2 24 22 - 31 mmol/L [facility] LABORATORY Anion Gap 13 5 - 15 mmol/L [facility] LABORATORY Calcium 8.7 8.5 - 10.5 mg/dL [facility] LABORATORY Estimated GFR 38 (L) >=60 mL/min/1.73 m?? [facility] LABORATORY Comment: This patient's estimated [...] Organization Address City/State/[place] [address] (ABNORMAL) Basic Metabolic Panel (non-fasting) (02/26/2022 5:30 AM EDT) P athologist Signature Glucose Lvl 101 65 - 199 [facility] mg/dL [facility] LABORATORY Comment: Diabetes: >=200 mg/dL plus symp toms BUN 60 (H) 10 - 20 mg/dL [facility] LABORATORY Creatinine 2.39 (H) 0.80 - 1.50 mg/dL [facility] LABORATORY Sodium 142 135 - 145 mmol/L [facility] LABORATORY Potassium 4.4 3.5 - 5.0 mmol/L [facility] LABORATORY Comment: Please note: ??Patients with WBC >100,00 0 may have falsely elevated Potassium levels. ??For accurate Potassium quantif ication in these patients send serum separator tube (gold top) for subsequent determinations. ??Contact the Clinical Chemistry Laboratory if there are any qu estions. Chloride 105 98 - 107 mmol/L [facility] LABORATORY CO2 23 22 - 31 mmol/L [facility] LABORATORY Anion Gap 14 5 - 15 mmol/L [facility] LABORATORY Calcium 8.7 8.5 - 10.5 mg/dL [facility] LABORATORY Estimated GFR 36 (L) >=60 mL/min/1.73 m?? [facility] LABORATORY Comment: This patient's estimated [...] Organization Address City/State/[place] [address] PTH (02/25/2022 5:30 AM EDT) P athologist Signature PTH 65 15 - 65 [facility] pg/mL [facility] LABORATORY Specimen Anatomical Collection Method Collection Time Receive d Time (Source) Location / / Volume Laterality Blood Venous Draw / 02/25/2022 5:30 AM 02/26/20 22 Unknown EDT 12:09 PM EDT Resulting Agency Comment Spec In Lab Tex Robles MD CHEMISTRY ORDERABLES Performing Organization Address City/[facility]/[place] [address] (ABNORMAL) Differential, Automated (02/25/2022 5:30 AM EDT) Patholo gist Method Time Signature Neutrophils % 67.3 % [facility] LABORATORY Neutr Abs (ANC) 6.38 (H) 1.70 - [facility] 6.10 [facility] x10(3)/[facility] L LABORATORY Lymphocytes % 18.9 % [facility] LABORATORY Lymphocytes Abs 1.8 0.9 - 3.2 [facility] x10(3)/[facility] LABORATORY Monocytes % 8.7 % [facility] LABORATORY Monocyte Abs 0.8 0.3 - 0.9 [facility] x10(3)/[facility] LABORATORY Eosinophils % 1.8 % [facility] LABORATORY Eosinophils Abs 0.2 0.0 - 0.4 [facility] x10(3)/[facility] LABORATORY Basophils % 0.5 % [facility] LABORATORY Basophils Abs 0.0 0.0 - 0.1 [facility] x10(3)/[facility] LABORATORY Immature Gran % 2.80 % [facility] LABORATORY Comment: Immature granulocytes(IG's)percentage an d absolute [...] Organization Address City/State/[place] [address] (ABNORMAL) Hemogram (02/25/2022 5:30 AM EDT) Analysis Performed At Patho logist Time Signature WBC 9.5 4.0 - 9.5 [facility] x10(3)/[facility] LABORATORY RBC 2.63 (L) 4.58 - [facility] 5.54 [facility] x10(6)/[facility] LABORATORY Hemoglobin 7.5 (L) 13.7 - [facility] 16.5 g/dL [facility] LABORATORY Hematocrit 23.5 (L) 40.5 - [facility] [place] 48.5 % [facility] LABORATORY MCV 89.4 82.9 - [facility] 93.1 [facility] LABORATORY MCH 28.5 27.5 - [facility] 32.1 pg [facility] LABORATORY MCHC 31.9 (L) 32.0 - [facility] 35.7 g/dL [facility] LABORATORY Platelets 299 145 - 357 [facility] x10(3)/[facility] LABORATORY RDWSD 55.2 (H) 36.0 - [facility] 45.0 [facility] LABORATORY RDWCV 17.1 (H) 11.4 - [facility] MANDO 13.8 % [facility] LABORATORY MPV 8.3 7.6 - 12.9 [facility] fL [facility] LABORATORY nRBC % Auto 0.0 % [facility] LABORATORY nRBC Abs Auto 0.000 0.000 - [facility] 0.000 [facility] x10(3)/[facility] LABORATORY Specimen Anatomical Collection Method Collection Time Receive d Time (Source) Location / / Volume Laterality Blood 02/25/2022 5:30 AM 2 6:31 EDT AM EDT Resulting Agency Comment Spec In Lab Nancy Chahal MD HEMATOLOGY ORDERABLES Performing Organization Address City/[facility]/ZIP Code Phon e Number [address] Magnesium (02/25/2022 5:30 AM EDT) P athologist Signature Magnesium 0.81 0.69 - 1.07 [facility] mmol/L [facility] LABORATORY Specimen Anatomical Collection Method Collection Time Receive d Time (Source) Location / / Volume Laterality Blood 02/25/2022 5:30 AM 2 6:31 EDT AM EDT Resulting Agency Comment Spec In Lab Jayme Armstrong MD CHEMISTRY ORDERABLES Performing Organization Address City/[facility]/ZIP Code Phon e Number [address] (ABNORMAL) Phosphorus (02/25/2022 5:30 AM EDT) athologist Signature Phosphorus 4.9 (H) 2.5 - 4.5 [facility] mg/dL [facility] LABORATORY Specimen Anatomical Collection Method Collection Time Receive d Time (Source) Location / / Volume Laterality Blood 02/25/2022 5:30 AM 6:31 EDT AM EDT Resulting Agency Comment Spec In Lab Jayme Armstrong MD CHEMISTRY ORDERABLES Performing Organization Address City/State/ZIP Code Phon e Number [place] [id number] [facility] LABORATORY Drive (ABNORMAL) Basic Metabolic Panel (non-fasting) (02/25/2022 5:30 AM EDT) athologist Signature Glucose Lvl 104 65 - 199 [facility] mg/dL [facility] LABORATORY Comment: Diabetes: >=200 mg/dL plus symp toms BUN 65 (H) 10 - 20 mg/dL [facility] LABORATORY Creatinine 2.94 (H) 0.80 - 1.50 mg/dL [facility] LABORATORY Sodium 139 135 - 145 mmol/L [facility] LABORATORY Potassium 4.2 3.5 - 5.0 mmol/L [facility] LABORATORY Comment: Please note: ??Patients with WBC >100,00 0 may have falsely elevated Potassium levels. ??For accurate Potassium quantif ication in these patients send serum separator tube (gold top) for subsequent determinations. ??Contact the Clinical Chemistry Laboratory if there are any qu estions. Chloride 102 98 - 107 mmol/L [facility] LABORATORY CO2 23 22 - 31 mmol/L [facility] LABORATORY Anion Gap 14 5 - 15 mmol/L [facility] LABORATORY Calcium 8.4 (L) 8.5 - 10.5 mg/dL [facility] LABORATORY Estimated GFR 28 (L) >=60 mL/min/1.73 m?? [facility] LABORATORY Comment: This patient's estimated [...] Organization Address City/State/[place] [address] (ABNORMAL) Basic Metabolic Panel (non-fasting) (02/24/2022 5:45 AM EDT) athologist Signature Glucose Lvl 102 65 - 199 [facility] mg/dL [facility] LABORATORY Comment: Diabetes: >=200 mg/dL plus symp toms BUN 61 (H) 10 - 20 mg/dL [facility] LABORATORY Creatinine 2.96 (H) 0.80 - 1.50 mg/dL [facility] LABORATORY Comment: result rechecked-sf Sodium 137 135 - 145 mmol/L [facility] LABORATORY Potassium 4.5 3.5 - 5.0 mmol/L [facility] LABORATORY Comment: Please note: ??Patients with WBC >100,00 0 may have falsely elevated Potassium levels. ??For accurate Potassium quantif ication in these patients send serum separator tube (gold top) for subsequent determinations. ??Contact the Clinical Chemistry Laboratory if there are any qu estions. Chloride 102 98 - 107 mmol/L [facility] LABORATORY CO2 22 22 - 31 mmol/L [facility] LABORATORY Anion Gap 13 5 - 15 mmol/L [facility] LABORATORY Calcium 8.3 (L) 8.5 - 10.5 mg/dL [facility] LABORATORY Estimated GFR 28 (L) >=60 mL/min/1.73 m?? [facility] LABORATORY Comment: This patient's estimated [...] Organization Address City/State/ZIP Code Phon e Number [place] [id number]OS[address] SCAN DOC: LAB (02/24/2022 12:00 AM EDT) Narrative This result has an attachment that is no t available. Unknown MEDIA MGR SCAN EXT ORDR/RSLT (ABNORMAL) Differential, Automated (02/23/2022 5:00 AM EDT) P athologist Signature Neutrophils % 69.0 % [facility] LABORATORY Neutr Abs (ANC) 5.59 1.70 - [facility] 6.10 [facility] x10(3)/[facility] LABORATORY Lymphocytes % 12.8 % [facility] LABORATORY Lymphocytes Abs 1.0 0.9 - 3.2 [facility] x10(3)/[facility] LABORATORY Monocytes % 10.0 % [facility] LABORATORY Monocyte Abs 0.8 0.3 - 0.9 [facility] x10(3)/[facility] LABORATORY Eosinophils % 2.6 % [facility] LABORATORY Eosinophils Abs 0.2 0.0 - 0.4 [facility] x10(3)/[facility] LABORATORY Basophils % 0.7 % [facility] LABORATORY Basophils Abs 0.1 0.0 - 0.1 [facility] x10(3)/[facility] LABORATORY Immature Gran % 4.90 % [facility] LABORATORY Comment: Immature granulocytes(IG's)percentage an d absolute [...] Organization Address City/State/[place] [address] (ABNORMAL) Hemogram (02/23/2022 5:00 AM EDT) Analysis Performed At Patho logist Time Signature WBC 8.1 4.0 - 9.5 [facility] x10(3)/[facility] LABORATORY RBC 2.50 (L) 4.58 - [facility] 5.54 [facility] x10(6)/[facility] LABORATORY Hemoglobin 7.0 (L) 13.7 - [facility] 16.[facility] g/dL [facility] LABORATORY Hematocrit 22.4 (L) 40.5 - [facility] 48.5 % [facility] LABORATORY MCV 89.6 82.9 - [facility] 93.1 fL [facility] LABORATORY MCH 28.0 27.5 - [facility] [place] 32.1 pg [facility] MCHC 31.3 (L) 32.0 - [facility] 35.7 g/dL [facility] Platelets 300 145 - 357 [facility] x10(3)/[facility] LABORATORY RDWSD 57.0 (H) 36.0 - [facility] 45.0 [facility] LABORATORY RDWCV 17.5 (H) 11.4 - [facility] 13.8 % [facility] MPV 8.4 7.6 - 12.9 [facility] LABORATORY nRBC % Auto 0.0 % [facility]OR[facility] nRBC Abs Auto 0.000 0.000 - [facility] 0.000 [facility] x10(3)/[facility] LABORATORY Specimen Anatomical Collection Method Collection Time Receive d Time (Source) Location / / Volume Laterality Blood 02/23/2022 5:00 AM 5:31 EDT AM EDT Resulting Agency Comment Spec In Lab Kaitlyn Rock MD HEMATOLOGY ORDERABLES Performing Organization Address City/State/[place] [address] (ABNORMAL) Basic Metabolic Panel (non-fasting) (02/23/2022 5:00 AM EDT) athologist Signature Glucose Lvl 113 65 - 199 [facility] mg/dL [facility] Comment: Diabetes: >=200 mg/dL plus symp toms BUN 59 (H) 10 - 20 mg/dL [facility] Creatinine 3.90 (H) 0.80 - 1.50 mg/dL [facility] LABORATORY Sodium 137 135 - 145 mmol/L [facility] Potassium 4.6 3.5 - 5.0 mmol/L [facility] Comment: Please note: ??Patients with WBC >100,00 0 may have falsely elevated Potassium levels. ??For accurate Potassium quantif ication in these patients send serum separator tube (gold top) for subsequent determinations. ??Contact the Clinical Chemistry Laboratory if there are any qu estions. Chloride 102 98 - 107 mmol/L [facility] CO2 24 22 - 31 mmol/L [facility] Anion Gap 11 5 - 15 mmol/L [facility] Calcium 8.3 (L) 8.5 - 10.5 mg/dL [facility] Estimated GFR 20 (L) >=60 mL/min/1.73 m?? [facility] Comment: This patient's estimated [...] Organization Address City/State/ZIP Code Phon e Number [address] (ABNORMAL) Phosphorus (02/23/2022 5:00 AM EDT) P athologist Signature Phosphorus 6.2 (H) 2.5 - 4.5 [facility] mg/dL [facility] Specimen Anatomical Collection Method Collection Time Receive d Time (Source) Location / / Volume Laterality Blood 02/23/2022 5:00 AM 2 5:31 EDT AM EDT Resulting Agency Comment Spec In Lab Gela Novak MD CHEMISTRY ORDERABLES Performing Organization Address City/State/ZIP Code Phon e Number [address] Magnesium (02/23/2022 5:00 AM EDT) P athologist Signature Magnesium 0.93 0.69 - 1.07 [facility] mmol/L [facility] Specimen Anatomical Collection Method Collection Time Receive d Time (Source) Location / / Volume Laterality Blood 02/23/2022 5:00 AM 2 5:31 EDT AM EDT Resulting Agency Comment Spec In Lab Gela Novak MD CHEMISTRY ORDERABLES Performing Organization Address City/[facility]/ZIP Code Phon e Number [address] (ABNORMAL) Differential, Automated (02/22/2022 1:08 AM EDT) [facility] Method Time Signature Neutrophils % 64.0 % [facility]OR[facility]ORY Neutr Abs (ANC) 5.73 1.70 - [facility] 6.10 [facility] x10(3)/[facility] LABORATORY Lymphocytes % 15.0 % [facility] Lymphocytes Abs 1.3 0.9 - 3.2 [facility] x10(3)/[facility] LABORATORY Monocytes % 10.9 % [facility] Monocyte Abs 1.0 (H) 0.3 - 0.9 [facility] x10(3)/[facility] LABORATORY Eosinophils % 3.0 % [facility] Eosinophils Abs 0.3 0.0 - 0.4 [facility] x10(3)/[facility] LABORATORY Basophils % 0.6 % [facility]ORY Basophils Abs 0.0 0.0 - 0.1 [facility] x10(3)/[facility] LABORATORY Immature Gran % 6.50 % [facility] Comment: Immature granulocytes(IG's)percentage an d absolute [...] Rock MD HEMATOLOGY ORDERABLES Performing Organization Address City/[facility]/ZIP Code Phon e Number [place] [id number] [facility] LABORATORY Drive (ABNORMAL) Hemogram (02/22/2022 1:08 AM EDT) Analysis Performed At Patho logist Time Signature WBC 8.9 4.0 - 9.5 [facility] LABORATORY RBC 2.56 (L) 4.58 - [facility] 5.54 [facility] x10(6)/[facility] LABORATORY Hemoglobin 7.3 (L) 13.7 - [facility] 16.5 g/dL [facility] Hematocrit 22.7 (L) 40.5 - [facility] 48.5 % [facility] MCV 88.7 82.9 - [facility] MANDO 93.1 [facility] LABORATORY MCH 28.5 27.5 - [facility] [place] 32.1 pg [facility] MCHC 32.2 32.0 - [facility] 35.7 g/dL [facility] Platelets 317 145 - 357 [facility] x10(3)/[facility] LABORATORY RDWSD 58.2 (H) 36.0 - [facility] [place] 45.0 [facility] LABORATORY RDWCV 17.9 (H) 11.4 - [facility] 13.8 % [facility] MPV 8.5 7.6 - 12.9 [facility] nRBC % Auto 0.0 % [facility] LABORATORY nRBC Abs Auto 0.000 0.000 - [facility] MANDO 0.000 [facility] x10(3)/[facility] LABORATORY Specimen Anatomical Collection Method Collection Time Receive d Time (Source) Location / / Volume Laterality Blood 02/22/2022 1:08 AM 2 1:25 EDT AM EDT Resulting Agency Comment Spec In Lab Kaitlyn Rock MD HEMATOLOGY ORDERABLES Performing Organization Address City/State/[place] [address] (ABNORMAL) Basic Metabolic Panel (non-fasting) (02/22/2022 1:08 AM EDT) P athologist Signature Glucose Lvl 95 65 - 199 [facility] mg/dL [facility] Comment: Diabetes: >=200 mg/dL plus symp toms BUN 55 (H) 10 - 20 mg/dL [facility] Creatinine 3.91 (H) 0.80 - 1.50 mg/dL [facility]ORY Sodium 137 135 - 145 mmol/L [facility] Potassium 5.1 (H) 3.5 - 5.0 mmol/L [facility] Comment: Please note: ??Patients with WBC >100,00 0 may have falsely elevated Potassium levels. ??For accurate Potassium quantif ication in these patients send serum separator tube (gold top) for subsequent determinations. ??Contact the Clinical Chemistry Laboratory if there are any qu estions. Chloride 101 98 - 107 mmol/L [facility] CO2 23 22 - 31 mmol/L [facility] Anion Gap 13 5 - 15 mmol/L [facility] Calcium 8.2 (L) 8.5 - 10.5 mg/dL [facility] Estimated GFR 20 (L) >=60 mL/min/1.73 m?? [facility] Comment: This patient's estimated [...] Organization Address City/State/[place] [address] (ABNORMAL) Phosphorus (02/22/2022 1:08 AM EDT) athologist Signature Phosphorus 5.9 (H) 2.5 - 4.5 [facility] mg/dL [facility] Specimen Anatomical Collection Method Collection Time Receive d Time (Source) Location / / Volume Laterality Blood 02/22/2022 1:08 AM 2 1:25 EDT AM EDT Resulting Agency Comment Spec In Lab Gela Novak MD CHEMISTRY ORDERABLES Performing Organization Address [facility]/ZIP Code Phon e Number [address] Magnesium (02/22/2022 1:08 AM EDT) athologist Signature Magnesium 0.90 0.69 - 1.07 [facility] mmol/L [facility] Specimen Anatomical Collection Method Collection Time Receive d Time (Source) Location / / Volume Laterality Blood 02/22/2022 1:08 AM 2 1:25 EDT AM EDT Resulting Agency Comment Spec In Lab Gela Novak MD CHEMISTRY ORDERABLES Performing Organization Address City/[facility] [place] [address] Transfuse RBC (02/21/2022 4:53 PM EDT) Gela Novak MD NURSING TREATMENT ORDERABLES - BLOOD ADMIN Transfuse RBC (02/21/2022 4:53 PM EDT) Gela Novak MD NURSING TREATMENT ORDERABLES - BLOOD ADMIN Type and Screen Validity (02/21/2022 12:40 PM EDT) [facility] Method Time Signature T&S only valid [facility] [place] [facility] M[facility] at [facility] Comment: This Type and Screen result is only valid at the [facility] [place] Hospital Specimen Anatomical Collection Method Collection Time Receive d Time (Source) Location / / Volume Laterality Blood 02/21/2022 12:40 02/21/2022 1:12 PM EDT PM EDT Resulting Agency Comment Spec In Lab Melissa Gonzales MD BLOOD BANK ORDERABLES Performing Organization Address City/[facility]/ZIP Code Phon e Number [address] ABORH Recheck Status (02/21/2022 12:40 PM EDT) [facility] Method Time Signature ABORH Type Completed [facility] LABORATORY Specimen Anatomical Collection Method Collection Time Receive d Time (Source) Location / / Volume Laterality Blood 02/21/2022 12:40 02/21/2022 1:12 PM EDT PM EDT Resulting Agency Comment Spec In Lab Melissa Gonzales MD BLOOD BANK ORDERABLES Performing Organization Address City/State/[place] [address] Antibody screen (02/21/2022 12:40 PM EDT) [facility] Method Time Signature Ab Screen Negative [facility] LABORATORY Expires at 02/24/2022 [facility] [id number] on: [facility] Specimen Anatomical Collection Method Collection Time Receive d Time (Source) Location / / Volume Laterality Blood 02/21/2022 12:40 02/21/2022 1:12 PM EDT PM EDT Resulting Agency Comment Spec In Lab Melissa Gonzales MD BLOOD BANK ORDERABLES Performing Organization Address City/State/[place] [address] ABO/Rh Typing (02/21/2022 12:40 PM EDT) P athologist Signature ABORh Type A Pos [facility] Specimen Anatomical Collection Method Collection Time Receive d Time (Source) Location / / Volume Laterality Blood 02/21/2022 12:40 02/21/2022 1:12 PM EDT PM EDT Resulting Agency Comment Spec In Lab Melissa Gonzales MD BLOOD BANK ORDERABLES Performing Organization Address City/[facility]/[place] [address] Prepare RBC (02/21/2022 12:20 PM EDT) P athologist Signature Dispensed? Yes [facility]OR[facility]ORY Specimen Anatomical Collection Method Collection Time Receive d Time (Source) Location / / Volume Laterality Blood 02/21/2022 12:20 02/21/2022 PM EDT 12:19 PM EDT Gela Novak MD BLOOD BANK ORDERABLES Performing Organization Address City/State/ZIP Code Phon e Number [address] (ABNORMAL) Albumin Level (02/21/2022 3:38 AM EDT) athologist Signature Albumin 2.3 (L) 3.2 - 5.2 [facility] g/dL [facility] Specimen Anatomical Collection Method Collection Time Receive d Time (Source) Location / / Volume Laterality Blood Venous Draw / 02/21/2022 3:38 AM 02/22/20 3:47 Unknown EDT AM EDT Resulting Agency Comment Spec In Lab Bambi Pressley MD CHEMISTRY ORDERABLES Performing Organization Address City/State/ZIP Code Phon e Number [address] (ABNORMAL) Differential, Automated (02/21/2022 3:38 AM EDT) athologist Signature Neutrophils % 67.8 % [facility]OR[facility]ORY Neutr Abs (ANC) 6.03 1.70 - [facility] 6.10 [facility] x10(3)/[facility] LABORATORY Lymphocytes % 13.5 % [facility]OR[facility]ORY Lymphocytes Abs 1.2 0.9 - 3.2 [facility] x10(3)/[facility] LABORATORY Monocytes % 9.4 % [facility] LABORATORY Monocyte Abs 0.8 0.3 - 0.9 [facility] x10(3)/[facility] LABORATORY Eosinophils % 3.1 % [facility] LABORATORY Eosinophils Abs 0.3 0.0 - 0.4 [facility] x10(3)/[facility] LABORATORY Basophils % 0.6 % [facility] LABORATORY Basophils Abs 0.0 0.0 - 0.1 [facility] x10(3)/[facility] LABORATORY Immature Gran % 5.60 % [facility]ATORY Comment: Immature granulocytes(IG's)percentage an d absolute [...] Organization Address City/State/[place] [address] (ABNORMAL) Hemogram (02/21/2022 3:38 AM EDT) Analysis Performed At Patho logist Time Signature WBC 8.9 4.0 - 9.5 [facility] x10(3)/[facility] LABORATORY RBC 2.37 (L) 4.58 - [facility] 5.54 [facility] x10(6)/[facility] LABORATORY Hemoglobin 6.9 (L) 13.7 - [facility] 16.5 g/dL [facility] LAB[facility]ORY Hematocrit 21.4 (L) 40.5 - [facility] 48.5 % [facility] MCV 90.3 82.9 - [facility] 93.1 [facility] LABORATORY MCH 29.1 27.5 - [facility] 32.1 pg [facility] MCHC 32.2 32.0 - [facility] 35.7 g/dL [facility] Platelets 273 145 - 357 [facility] x10(3)/[facility] LABORATORY RDWSD 50.5 (H) 36.0 - [facility] 45.0 [facility] LABORATORY RDWCV 15.7 (H) 11.4 - [facility] 13.8 % [facility] LABORATORY MPV 8.5 7.6 - 12.9 [facility] LABORATORY nRBC % Auto 0.0 % [facility] LABORATORY nRBC Abs Auto 0.000 0.000 - [facility] M[facility] 0.000 [facility] x10(3)/[facility] LABORATORY Specimen Anatomical Collection Method Collection Time Receive d Time (Source) Location / / Volume Laterality Blood 02/21/2022 3:38 AM 2 3:46 EDT AM EDT Resulting Agency Comment Spec In Lab Kaitlyn Rock MD HEMATOLOGY ORDERABLES Performing Organization Address City/State/[place] [address] (ABNORMAL) Basic Metabolic Panel (non-fasting) (02/21/2022 3:38 AM EDT) athologist Signature Glucose Lvl 96 65 - 199 [facility] mg/dL [facility] Comment: Diabetes: >=200 mg/dL plus symp toms BUN 46 (H) 10 - 20 mg/dL [facility]OR[facility]ORY Creatinine 3.68 (H) 0.80 - 1.50 mg/dL [facility] LABOR[facility]ORY Sodium 136 135 - 145 mmol/L [facility] Potassium 4.9 3.5 - 5.0 mmol/L [facility] Comment: Please note: ??Patients with WBC >100,00 0 may have falsely elevated Potassium levels. ??For accurate Potassium quantif ication in these patients send serum separator tube (gold top) for subsequent determinations. ??Contact the Clinical Chemistry Laboratory if there are any qu estions. Chloride 101 98 - 107 mmol/L [facility]OR[facility]ORY CO2 26 22 - 31 mmol/L [facility] Anion Gap 9 5 - 15 mmol/L [facility] LABOR[facility]ORY Calcium 8.1 (L) 8.5 - 10.5 mg/dL [facility] LABOR[facility]ORY Estimated GFR 22 (L) >=60 mL/min/1.73 m?? [facility]ORY Comment: This patient's estimated [...] Novak MD CHEMISTRY ORDERABLES Performing Organization Address City/[facility]/ZIP Code Phon e Number [address] (ABNORMAL) Phosphorus (02/21/2022 3:38 AM EDT) athologist Signature Phosphorus 5.1 (H) 2.5 - 4.5 [facility] mg/dL [facility] LABOR[facility]ORY Specimen Anatomical Collection Method Collection Time Receive d Time (Source) Location / / Volume Laterality Blood 02/21/2022 3:38 AM 2 3:46 EDT AM EDT Resulting Agency Comment Spec In Lab Gela Novak MD CHEMISTRY ORDERABLES Performing Organization Address City/[facility]/ZIP Code Phon e Number [address] Magnesium (02/21/2022 3:38 AM EDT) P athologist Signature Magnesium 0.92 0.69 - 1.07 [facility] mmol/L [facility] LABORATORY Specimen Anatomical Collection Method Collection Time Receive d Time (Source) Location / / Volume Laterality Blood 02/21/2022 3:38 AM 2 3:46 EDT AM EDT Resulting Agency Comment Spec In Lab Gela Novak MD CHEMISTRY ORDERABLES Performing Organization Address City/[facility]/ZIP Code Phon e Number [address] (ABNORMAL) Differential, Automated (02/20/2022 4:45 AM EDT) Patholo gist Method Time Signature Neutrophils % 67.8 % [facility] LABORATORY Neutr Abs (ANC) 6.58 (H) 1.70 - [facility] 6.10 [facility] x10(3)/[facility] L LABORATORY Lymphocytes % 12.7 % [facility] LABORATORY Lymphocytes Abs 1.2 0.9 - 3.2 [facility] x10(3)/[facility] LABORATORY Monocytes % 9.2 % [facility] LABORATORY Monocyte Abs 0.9 0.3 - 0.9 [facility] x10(3)/[facility] LABORATORY Eosinophils % 3.0 % [facility] LABORATORY Eosinophils Abs 0.3 0.0 - 0.4 [facility] x10(3)/[facility] LABORATORY Basophils % 0.4 % [facility] LABORATORY Basophils Abs 0.0 0.0 - 0.1 [facility] x10(3)/[facility] LABORATORY Immature Gran % 6.90 % [facility] LABORATORY Comment: Immature granulocytes(IG's)percentage an d absolute [...] Organization Address City/State/[place] [address] (ABNORMAL) Hemogram (02/20/2022 4:45 AM EDT) Analysis Performed At Patho logist Time Signature WBC 9.7 (H) 4.0 - 9.5 [facility] x10(3)/[facility] LABORATORY RBC 2.48 (L) 4.58 - [facility] 5.54 [facility] x10(6)/[facility] LABORATORY Hemoglobin 7.2 (L) 13.7 - [facility] 16.5 g/dL [facility] LABORATORY Hematocrit 22.2 (L) 40.5 - [facility] 48.5 % [facility] LABORATORY MCV 89.5 82.9 - [facility] 93.1 [facility] LABORATORY MCH 29.0 27.5 - [facility] [place] 32.1 pg [facility] LABORATORY MCHC 32.4 32.0 - [facility] 35.7 g/dL [facility] LABORATORY Platelets 312 145 - 357 [facility] x10(3)/[facility] LABORATORY RDWSD 49.6 (H) 36.0 - [facility] 45.0 [facility] LABORATORY RDWCV 15.4 (H) 11.4 - [facility] 13.8 % [facility] LABORATORY MPV 8.4 7.6 - 12.9 [facility] LABORATORY nRBC % Auto 0.0 % [facility] LABORATORY nRBC Abs Auto 0.000 0.000 - [facility] 0.000 [facility] x10(3)/[facility] LABORATORY Specimen Anatomical Collection Method Collection Time Receive d Time (Source) Location / / Volume Laterality Blood 02/20/2022 4:45 AM 5:02 EDT AM EDT Resulting Agency Comment Spec In Lab Kaitlyn Rock MD HEMATOLOGY ORDERABLES Performing Organization Address City/State/[place] [address] (ABNORMAL) Basic Metabolic Panel (non-fasting) (02/20/2022 4:45 AM EDT) P athologist Signature Glucose Lvl 98 65 - 199 [facility] mg/dL [facility] Comment: Diabetes: >=200 mg/dL plus symp toms BUN 35 (H) 10 - 20 mg/dL [facility] LABORATORY Creatinine 3.27 (H) 0.80 - 1.50 mg/dL [facility] LABOR[facility] Comment: result rechecked-trb Sodium 136 135 - 145 mmol/L [facility] LABOR[facility]ORY Potassium 4.7 3.5 - 5.0 mmol/L [facility] LABOR[facility] Comment: Please note: ??Patients with WBC >100,00 0 may have falsely elevated Potassium levels. ??For accurate Potassium quantif ication in these patients send serum separator tube (gold top) for subsequent determinations. ??Contact the Clinical Chemistry Laboratory if there are any qu estions. Chloride 99 98 - 107 mmol/L [facility]ORATORY CO2 27 22 - 31 mmol/L [facility]OR[facility]ORY Anion Gap 10 5 - 15 mmol/L [facility] LABORATORY Calcium 7.8 (L) 8.5 - 10.5 mg/dL [facility] LABOR[facility]ORY Estimated GFR 25 (L) >=60 mL/min/1.73 m?? [facility] LAB[facility]ATORY Comment: This patient's estimated [...] Organization Address City/State/[place] [address] (ABNORMAL) Phosphorus (02/20/2022 4:45 AM EDT) P athologist Signature Phosphorus 4.6 (H) 2.5 - 4.5 [facility]/dL [facility] Specimen Anatomical Collection Method Collection Time Receive d Time (Source) Location / / Volume Laterality Blood 02/20/2022 4:45 AM 2 5:02 EDT AM EDT Resulting Agency Comment Spec In Lab Gela Novak MD CHEMISTRY ORDERABLES Performing Organization Address City/State/ZIP Code Phon e Number [address] Magnesium (02/20/2022 4:45 AM EDT) P athologist Signature Magnesium 0.83 0.69 - 1.07 [facility] mmol/L [facility] LABORATORY Specimen Anatomical Collection Method Collection Time Receive d Time (Source) Location / / Volume Laterality Blood 02/20/2022 4:45 AM 5:02 EDT AM EDT Resulting Agency Comment Spec In Lab Gela Novak MD CHEMISTRY ORDERABLES Performing Organization Address City/[facility] Code Phon e Number [address] Duplex for DVT, Arm, Unilat (02/19/2022 3:45 PM EDT) Component Value Ref Test Analysis Performed At Patholo gist Range Method Time Signature VB Text Department: Vascular Surgery Lab VASCUBASE Report Patient: [id number] (ALIX HOLLAND) CPT: 96135 Referring Physician: GELA NOVAK ?? Phone: Indications: [...] VASCUBASE Anaerobic Culture (02/19/2022 9:45 AM EDT) [place] Method Time Signature Anaerobic No anaerobic [facility] Culture organisms [facility] LABORATORY Specimen Anatomical Collection Method Collection Time Receive d Time (Source) Location / / Volume Laterality Deep Wound STRUCTURE OF LEFT 02/19/2022 9:45 AM 01/30 THIGH / Unknown EDT 10:24 AM EDT Comment: Left leg wound culture Resulting Agency Comment Spec In Lab Floridalma Sandoval MD MICROBIOLOGY - GENERAL ORDER JT Performing Organization Address City/State/[place] [address] (ABNORMAL) Abscess/Wound Aspirate Culture (02/19/2022 9:45 AM EDT) Component Value Ref Test Analysis Performed At [place] [facility] Method Time Signature Abscess/Wound Rare Serratia marcescens M JON Aspirate Rare Pseudomonas aeruginosa HI [facility] Culture (A) [facility] Gram Stain Moderate Neutrophils JOSH No microorganisms seen. [facility] OCK (A) [facility] Organism Serratia JOSH marcescens (A) [facility] LABOR[facility] Organism Pseudomonas JOSH aeruginosa (A) [facility] LABOR[facility] Specimen Anatomical Collection Method [...] Organization Address City/State/[place] [address] (ABNORMAL) Vitamin D, 25-Hydroxy (02/19/2022 12:27 AM EDT) Patholo gist Method Time Signature 25-OH Vit D 12 (L) 21 - 100 [facility] Total ng/mL [facility] 25-OH Vit D Deficient [facility] LABORATORY Specimen Anatomical Collection Method Collection Time Receive d Time (Source) Location / / Volume Laterality Blood Venous Draw / 02/19/2022 12:27 02/19/2022 Unknown AM EDT 12:44 AM EDT Resulting Agency Comment Spec In Lab Vidhya Peñaloza MD CHEMISTRY ORDERABLES Performing Organization Address City/State/ZIP Code Phon e Number [address] (ABNORMAL) Ferritin (02/19/2022 12:27 AM EDT) P athologist Signature Ferritin 855 (H) 30 - 400 JOSH MANDO ng/mL [facility] Comment: Pediatric reference ranges not verified at [facility] [place] [place], interpret with caution. Reference ranges for females greater trina n 50 years of age approach values for men, i.e., 30-400 ng/mL. Specimen Anatomical Collection Method Collection Time Receive d Time (Source) Location / / Volume Laterality Blood Venous Draw / 02/19/2022 12:27 02/19/2022 Unknown AM EDT 12:44 AM EDT Resulting Agency Comment Spec In Lab Bambi Pressley MD CHEMISTRY ORDERABLES Performing Organization Address City/State/[place] [address] (ABNORMAL) Differential, Automated (02/19/2022 12:27 AM EDT) [facility] Method Time Signature Neutrophils % 66.5 % [facility] LABORATORY Neutr Abs (ANC) 8.58 (H) 1.70 - [facility] 6.10 [facility] x10(3)/[facility] LABORATORY Lymphocytes % 11.4 % [facility]OR[facility]ORY Lymphocytes Abs 1.5 0.9 - 3.2 [facility] x10(3)/[facility] LABORATORY Monocytes % 7.6 % [facility] LABORATORY Monocyte Abs 1.0 (H) 0.3 - 0.9 [facility] x10(3)/[facility] LABORATORY Eosinophils % 4.0 % [facility] LABORATORY Eosinophils Abs 0.5 (H) 0.0 - 0.4 [facility] x10(3)/[facility] LABORATORY Basophils % 0.5 % [facility] LABORATORY Basophils Abs 0.1 0.0 - 0.1 [facility] x10(3)/[facility] LABORATORY Immature Gran % 10.00 % [facility]ATORY Comment: Immature granulocytes(IG's)percentage an d absolute [...] Organization Address City/State/[place] [address] (ABNORMAL) Hemogram (02/19/2022 12:27 AM EDT) Analysis Performed At Patho logist Time Signature WBC 12.9 (H) 4.0 - 9.5 [facility] x10(3)/[facility] LABORATORY RBC 2.44 (L) 4.58 - [facility] 5[facility]54 [facility] x10(6)/[facility] LABORATORY Hemoglobin 7.1 (L) 13.7 - [facility] 16.5 g/dL [facility] Hematocrit 21.9 (L) 40.5 - [facility] 48.5 % [facility] MCV 89.8 82.9 - [facility] 93.1 [facility] LABORATORY MCH 29.1 27.5 - [facility] 32.1 pg [facility] MCHC 32.4 32.0 - [facility] 35.7 g/dL [facility] Platelets 320 145 - 357 [facility] x10(3)/[facility] LABORATORY RDWSD 51.8 (H) 36.0 - [facility] MANDO 45.0 [facility] LABORATORY RDWCV 15.7 (H) 11.4 - [facility] MANDO 13.8 % [facility] LAB[facility] MPV 8.7 7.6 - 12.9 [facility] LABORATORY nRBC % Auto 0.0 % [facility] LABORATORY nRBC Abs Auto 0.000 0.000 - [facility] 0.000 [facility] x10(3)/[facility] LABORATORY Specimen Anatomical Collection Method Collection Time Receive d Time (Source) Location / / Volume Laterality Blood 02/19/2022 12:27 02/19/2022 AM EDT 12:33 AM EDT Resulting Agency Comment Spec In Lab Collette Dye MD HEMATOLOGY ORDERABLES Performing Organization Address City/State/[place] [address] (ABNORMAL) Basic Metabolic Panel (non-fasting) (02/19/2022 12:27 AM EDT) P athologist Signature Glucose Lvl 100 65 - 199 [facility] mg/dL [facility] Comment: Diabetes: >=200 mg/dL plus symp toms BUN 49 (H) 10 - 20 mg/dL [facility] LABORATORY Creatinine 4.47 (H) 0.80 - 1.50 mg/dL [facility] LABORATORY Sodium 133 (L) 135 - 145 mmol/L [facility] LABOR[facility]ORY Potassium 4.6 3.5 - 5.0 mmol/L [facility] LAB[facility]ORY Comment: Please note: ??Patients with WBC >100,00 0 may have falsely elevated Potassium levels. ??For accurate Potassium quantif ication in these patients send serum separator tube (gold top) for subsequent determinations. ??Contact the Clinical Chemistry Laboratory if there are any qu estions. Chloride 97 (L) 98 - 107 mmol/L [facility]ORY CO2 24 22 - 31 mmol/L [facility]ORY Anion Gap 12 5 - 15 mmol/L [facility] LABORATORY Calcium 7.8 (L) 8.5 - 10.5 mg/dL [facility] LABORATORY Estimated GFR 17 (L) >=60 mL/min/1.73 m?? [facility] Comment: This patient's estimated [...] Novak MD CHEMISTRY ORDERABLES Performing Organization Address City/[facility]/ZIP Code Phon e Number [address] (ABNORMAL) Phosphorus (02/19/2022 12:27 AM EDT) P athologist Signature Phosphorus 5.9 (H) 2.5 - 4.5 [facility] mg/dL [facility] Specimen Anatomical Collection Method Collection Time Receive d Time (Source) Location / / Volume Laterality Blood 02/19/2022 12:27 02/19/2022 AM EDT 12:33 AM EDT Resulting Agency Comment Spec In Lab Gela Novak MD CHEMISTRY ORDERABLES Performing Organization Address City/[facility]/[place] [address] Magnesium (02/19/2022 12:27 AM EDT) P athologist Signature Magnesium 0.84 0.69 - 1.07 [facility] mmol/L [facility] LAB[facility] Specimen Anatomical Collection Method Collection Time Receive d Time (Source) Location / / Volume Laterality Blood 02/19/2022 12:27 02/19/2022 AM EDT 12:33 AM EDT Resulting Agency Comment Spec In Lab Gela Novak MD CHEMISTRY ORDERABLES Performing Organization Address City/[facility]/[place] [address] Hepatitis B Surface Antigen (02/19/2022 12:27 AM EDT) Analysis Performed At Patho logist Time Signature HepB Surface Negative Negative [facility] LABORATORY Specimen Anatomical Collection Method Collection Time Receive d Time (Source) Location / / Volume Laterality Blood 02/19/2022 12:27 02/19/2022 AM EDT 12:33 AM EDT Resulting Agency Comment Spec In Lab Gela Novak MD CHEMISTRY ORDERABLES Performing Organization Address City/State/ZIP Code Phon e Number [address] Scan, Peripheral Blood (02/18/2022 4:01 AM EDT) [facility] Signature Plat Estimate Normal [facility]ATORY RBC Morphology Abnormal [facility]OR[facility]ORY Ovalocytes 1-5 /HPF [facility] LABORATORY Stippled RBCs Present >1/HPF [facility] LABORATORY Specimen Anatomical Collection Method Collection Time Receive d Time (Source) Location / / Volume Laterality Blood 02/18/2022 4:01 AM 4:16 EDT AM EDT Resulting Agency Comment Spec In Lab Collette Dye MD HEMATOLOGY ORDERABLES Performing Organization Address City/[facility]/ZIP Code Phon e Number [address] (ABNORMAL) Differential, Automated (02/18/2022 4:01 AM EDT) [place] Method Time Signature Neutrophils % 70.4 % [facility] LABORATORY Neutr Abs (ANC) 10.70 (H) 1.70 - [facility] 6.10 [facility] x10(3)/[facility] LABORATORY Lymphocytes % 8.0 % [facility] LABORATORY Lymphocytes Abs 1.2 0.9 - 3.2 [facility] x10(3)/[facility] LABORATORY Monocytes % 7.7 % [facility] LABORATORY Monocyte Abs 1.2 (H) 0.3 - 0.9 [facility] x10(3)/[facility] LABORATORY Eosinophils % 3.2 % [facility] LABORATORY Eosinophils Abs 0.5 (H) 0.0 - 0.4 [facility] x10(3)/[facility] LABORATORY Basophils % 0.4 % [facility] LABORATORY Basophils Abs 0.1 0.0 - 0.1 [facility] x10(3)/[facility] LABORATORY Immature Gran % 10.30 % [facility]ATORY Comment: Immature granulocytes(IG's)percentage an d absolute [...] Organization Address City/State/[place] [address] (ABNORMAL) Hemogram (02/18/2022 4:01 AM EDT) Analysis Performed At Patho logist Time Signature WBC 15.2 (H) 4.0 - 9.5 [facility] x[facility](3[facility] LABORATORY RBC 2.44 (L) 4.58 - [facility] MANDO 5.54 [facility] x10(6)/[facility] LABORATORY Hemoglobin 7.0 (L) 13.7 - [facility] 16.5 g/dL [facility] Hematocrit 22.0 (L) 40.5 - [facility] MANDO 48.5 % [facility] LAB[facility] MCV 90.2 82.9 - [facility] 93.1 [facility] LABORATORY MCH 28.7 27.5 - [facility] MANDO 32.1 pg [facility] LAB[facility] MCHC 31.8 (L) 32.0 - [facility] MAND[facility] 35.7 g/dL [facility] Platelets 325 145 - 357 [facility] x[facility](3[facility] LABORATORY RDWSD 51.1 (H) 36.0 - [facility] MAND[facility] 45.0 [facility] LABORATORY RDWCV 15.5 (H) 11.4 - [facility] MANDO 13.8 % [facility] LABORATORY MPV 8.8 7.6 - 12.9 [facility] nRBC % Auto 0.0 % [facility] LABORATORY nRBC Abs Auto 0.000 0.000 - [facility] 0.000 [facility] x10(3)/[facility] LABORATORY Specimen Anatomical Collection Method Collection Time Receive d Time (Source) Location / / Volume Laterality Blood 02/18/2022 4:01 AM 2 4:16 EDT AM EDT Resulting Agency Comment Spec In Lab Collette Dye MD HEMATOLOGY ORDERABLES Performing Organization Address City/State/[place] [address] (ABNORMAL) Basic Metabolic Panel (non-fasting) (02/18/2022 4:01 AM EDT) athologist Signature Glucose Lvl 98 65 - 199 [facility] mg/dL [facility] Comment: Diabetes: >=200 mg/dL plus symp toms BUN 36 (H) 10 - 20 mg/dL [facility] LABORATORY Creatinine 3.80 (H) 0.80 - 1.50 mg/dL [facility] LAB[facility]ORY Comment: result rechecked-trb Sodium 132 (L) 135 - 145 mmol/L [facility] LAB[facility]ORY Potassium 4.3 3.5 - 5.0 mmol/L [facility] Comment: Please note: ??Patients with WBC >100,00 0 may have falsely elevated Potassium levels. ??For accurate Potassium quantif ication in these patients send serum separator tube (gold top) for subsequent determinations. ??Contact the Clinical Chemistry Laboratory if there are any qu estions. Chloride 97 (L) 98 - 107 mmol/L [facility]ORATORY CO2 28 22 - 31 mmol/L [facility]ORY Anion Gap 7 5 - 15 mmol/L [facility] LABORATORY Calcium 7.9 (L) 8.5 - 10.5 mg/dL [facility] LABORATORY Estimated GFR 21 (L) >=60 mL/min/1.73 m?? [facility] Comment: This patient's estimated [...] Novak MD CHEMISTRY ORDERABLES Performing Organization Address City/[facility]/ZIP Code Phon e Number [address] (ABNORMAL) Phosphorus (02/18/2022 4:01 AM EDT) P athologist Signature Phosphorus 4.9 (H) 2.5 - 4.5 [facility] mg/dL [facility]ORY Specimen Anatomical Collection Method Collection Time Receive d Time (Source) Location / / Volume Laterality Blood 02/18/2022 4:01 AM 2 4:17 EDT AM EDT Resulting Agency Comment Spec In Lab Gela Novak MD CHEMISTRY ORDERABLES Performing Organization Address City/[facility]/[place] [address] Magnesium (02/18/2022 4:01 AM EDT) P athologist Signature Magnesium 0.79 0.69 - 1.07 [facility] mmol/L [facility] LABOR[facility]ORY Specimen Anatomical Collection Method Collection Time Receive d Time (Source) Location / / Volume Laterality Blood 02/18/2022 4:01 AM 2 4:17 EDT AM EDT Resulting Agency Comment Spec In Lab Gela Novak MD CHEMISTRY ORDERABLES Performing Organization Address City/[facility]/ZIP Code Phon e Number [address] Anaerobic Culture (02/17/2022 8:35 AM EDT) [facility] Method Time Signature Anaerobic No anaerobic [facility] Culture organisms [facility] LABORATORY Specimen Anatomical Collection Method Collection Time Receive d Time (Source) Location / / Volume Laterality Deep Wound STRUCTURE OF LEFT 02/17/2022 8:35 AM 07/2 THIGH / Unknown EDT 10:03 AM EDT Comment: Left lateral thigh wound Resulting Agency Comment Spec In Lab Jayme Armstrong MD MICROBIOLOGY - GENERAL ORDER JT Performing Organization Address City/[facility]/[place] [address] (ABNORMAL) Abscess/Wound Aspirate Culture (02/17/2022 8:35 AM EDT) Component Value Ref Test Analysis Performed At [facility] Range Method Time Signature Abscess/Woun One colony of JOSH malik Aspirate Serratia marcescens [facility] Culture : Susceptibilities [facility] () LABORATORY Gram Stain Moderate Neutrophils JOSH No microorganisms seen. [facility] OCK (A) [facility] LABORATORY Organism Serratia marcescens [facility] (A) [facility] LABORATORY Specimen Anatomical Collection Method Collection Time Receive d Time (Source) Location / / Volume Laterality Deep Wound STRUCTURE OF LEFT 02/17/2022 8:35 AM 07/2 THIGH / Unknown EDT 10:03 AM EDT Comment: Left lateral thigh wound Resulting Agency Comment Spec In Lab Jayme Armstrong MD MICROBIOLOGY - GENERAL ORDER JT Performing Organization Address City/[facility]/[place] [address] Anaerobic Culture (02/17/2022 8:35 AM EDT) [facility] Method Time Signature Anaerobic No anaerobic [facility] Culture organisms [facility] LABORATORY Specimen Anatomical Collection Method Collection Time Receive d Time (Source) Location / / Volume Laterality Deep Wound STRUCTURE OF LEFT 02/17/2022 8:35 AM 07/2 THIGH / Unknown EDT 10:02 AM EDT Comment: left superior thigh wound Resulting Agency Comment Spec In Lab Jayme Armstrong MD MICROBIOLOGY - GENERAL ORDER JT Performing Organization Address City/[facility]/[place] [address] (ABNORMAL) Abscess/Wound Aspirate Culture (02/17/2022 8:35 AM EDT) Component Value Ref Test Analysis Performed At [facility] Range Method Time Signature Abscess/Woun One colony of Serratia gabriele scens : Susceptibilities previously reported JOSH d Aspirate One colony of Pseudomonas ae ruginosa : Susceptibilities previously reported [facility] Culture (A) [facility] LAB[facility] Gram Stain Moderate Neutrophils seen MAR Y No microorganisms seen. [facility] OCK (A) [facility] LABOR[facility]ORY Organism Serratia marcescens JOSH (A) [facility] LABORATORY Organism Pseudomonas JOSH aeruginosa (A) [facility] LABORATORY Specimen Anatomical Collection Method Collection Time Receive d Time (Source) Location / / Volume Laterality Deep Wound STRUCTURE OF LEFT 02/17/2022 8:35 AM 01/30 THIGH / Unknown EDT 10:02 AM EDT Comment: left superior thigh wound Resulting Agency Comment Spec In Lab Jayme Armstrong MD MICROBIOLOGY - GENERAL ORDER JT Performing Organization Address City/State/[place] [address] (ABNORMAL) Differential, Automated (02/17/2022 3:40 AM EDT) [facility] Method Time Signature Neutrophils % 66.7 % [facility] LABORATORY Neutr Abs (ANC) 11.34 (H) 1.70 - [facility] 6.10 [facility] x10(3)/[facility] LABORATORY Lymphocytes % 8.6 % [facility] LABORATORY Lymphocytes Abs 1.5 0.9 - 3.2 [facility] x10(3)/[facility] LABORATORY Monocytes % 6.6 % [facility] LABORATORY Monocyte Abs 1.1 (H) 0.3 - 0.9 [facility] x10(3)/[facility] LABORATORY Eosinophils % 3.9 % [facility] LABORATORY Eosinophils Abs 0.7 (H) 0.0 - 0.4 [facility] x10(3)/[facility] LABORATORY Basophils % 0.5 % [facility] LABORATORY Basophils Abs 0.1 0.0 - 0.1 [facility] x10(3)/[facility] LABORATORY Immature Gran % 13.70 % [facility] LABORATORY Comment: Immature granulocytes(IG's)percentage an d absolute [...] Organization Address City/State/ZIP Code Phon e Number [place] [id number]OS[address] LAB[address]ORY Drive (ABNORMAL) Hemogram (02/17/2022 3:40 AM EDT) Analysis Performed At Patho logist Time Signature WBC 17.0 (H) 4.0 - 9.5 [facility] x10(3)/[facility] LABORATORY RBC 2.46 (L) 4.58 - [facility] MANDO 5.54 [facility] x10(6)/[facility] LABORATORY Hemoglobin 7.1 (L) 13.7 - [facility] 16.[facility] g/dL [facility] LABORATORY Hematocrit 22.2 (L) 40.5 - [facility] MANDO 48.5 % [facility] LABORATORY MCV 90.2 82.9 - [facility] MAND[facility] 93.1 [facility] LABORATORY MCH 28.9 27.5 - [facility] 32.1 pg [facility] LABORATORY MCHC 32.0 32.0 - [facility] 35.7 g/dL [facility] LABORATORY Platelets 316 145 - 357 [facility] x10(3)/[facility] LABORATORY RDWSD 51.5 (H) 36.0 - [facility] M[facility] 45.0 [facility] RDWCV 15.7 (H) 11.4 - [facility] 13.8 % [facility] LABORATORY MPV 9.0 7.6 - 12.9 [facility] LABORATORY nRBC % Auto 0.0 % [facility] LABORATORY nRBC Abs Auto 0.000 0.000 - [facility] 0.000 [facility] x10(3)/[facility] LABORATORY Specimen Anatomical Collection Method Collection Time Receive d Time (Source) Location / / Volume Laterality Blood 02/17/2022 3:40 AM 2 3:59 EDT AM EDT Resulting Agency Comment Spec In Lab Collette Dye MD HEMATOLOGY ORDERABLES Performing Organization Address City/State/[place] [address] (ABNORMAL) Basic Metabolic Panel (non-fasting) (02/17/2022 3:40 AM EDT) P athologist Signature Glucose Lvl 101 65 - 199 [facility] mg/dL [facility] LABOR[facility]ORY Comment: Diabetes: >=200 mg/dL plus symp toms BUN 51 (H) 10 - 20 mg/dL [facility] LABORATORY Creatinine 5.07 (H) 0.80 - 1.50 mg/dL [facility] LABORATORY Comment: result rechecked-sf Sodium 130 (L) 135 - 145 mmol/L [facility] LABORATORY Potassium 4.5 3.5 - 5.0 mmol/L [facility] LABORATORY Comment: Please note: ??Patients with WBC >100,00 0 may have falsely elevated Potassium levels. ??For accurate Potassium quantif ication in these patients send serum separator tube (gold top) for subsequent determinations. ??Contact the Clinical Chemistry Laboratory if there are any qu estions. Chloride 96 (L) 98 - 107 mmol/L [facility] LABORATORY CO2 24 22 - 31 mmol/L [facility] LABORATORY Anion Gap 10 5 - 15 mmol/L [facility] LABORATORY Calcium 7.8 (L) 8.5 - 10.5 mg/dL [facility] LABORATORY Estimated GFR 15 (L) >=60 mL/min/1.73 m?? [facility] LABORATORY Comment: This patient's estimated [...] Novak MD CHEMISTRY ORDERABLES Performing Organization Address City/[facility]/ZIP Code Phon e Number [address] (ABNORMAL) Phosphorus (02/17/2022 3:40 AM EDT) P athologist Signature Phosphorus 5.7 (H) 2.5 - 4.5 [facility] mg/dL [facility] LABORATORY Specimen Anatomical Collection Method Collection Time Receive d Time (Source) Location / / Volume Laterality Blood 02/17/2022 3:40 AM 2 3:59 EDT AM EDT Resulting Agency Comment Spec In Lab Gela Novak MD CHEMISTRY ORDERABLES Performing Organization Address City/[facility]/[place] [address] Magnesium (02/17/2022 3:40 AM EDT) P athologist Signature Magnesium 0.86 0.69 - 1.07 [facility] mmol/L [facility] LABORATORY Specimen Anatomical Collection Method Collection Time Receive d Time (Source) Location / / Volume Laterality Blood 02/17/2022 3:40 AM 2 3:59 EDT AM EDT Resulting Agency Comment Spec In Lab Gela Novak MD CHEMISTRY ORDERABLES Performing Organization Address City/[facility]/[place] [address] (ABNORMAL) Differential, Automated (02/16/2022 4:05 AM EDT) [facility] Method Time Signature Neutrophils % 66.8 % [facility] LABORATORY Neutr Abs (ANC) 12.70 (H) 1.70 - [facility] 6.10 [facility] x10(3)/[facility] LABORATORY Lymphocytes % 6.8 % [facility] LABORATORY Lymphocytes Abs 1.3 0.9 - 3.2 [facility] x10(3)/[facility] LABORATORY Monocytes % 5.9 % [facility] [facility] Monocyte Abs 1.1 (H) 0.3 - 0.9 [facility] x10(3)/[facility] LABORATORY Eosinophils % 3.2 % [facility] LABORATORY Eosinophils Abs 0.6 (H) 0.0 - 0.4 [facility] x10(3)/[facility] LABORATORY Basophils % 0.6 % [facility] LABORATORY Basophils Abs 0.1 0.0 - 0.1 [facility] x10(3)/[facility] LABORATORY Immature Gran % 16.70 % [facility] LABORATORY Comment: Immature granulocytes(IG's)percentage an d absolute [...] Organization Address City/State/[place] [address] (ABNORMAL) Hemogram (02/16/2022 4:05 AM EDT) Analysis Performed At Patho logist Time Signature WBC 19.0 (H) 4.0 - 9.5 [facility](3[facility] LABORATORY RBC 2.50 (L) 4.58 - JOS[facility] MANDO 5.54 [facility] x10(6)/[facility] LABORATORY Hemoglobin 7.3 (L) 13.7 - [facility] 16.5 g/dL [facility] LABORATORY Hematocrit 22.3 (L) 40.5 - [facility] 48.5 % [facility] LABORATORY MCV 89.2 82.9 - [facility] 93.1 [facility] LABORATORY MCH 29.2 27.5 - [facility] M[facility] 32.1 pg [facility] LABORATORY MCHC 32.7 32.0 - [facility] 35.7 g/dL [facility] LABORATORY Platelets 296 145 - 357 [facility] x10(3)/[facility] LABORATORY RDWSD 51.5 (H) 36.0 - [facility] MANDO 45.0 [facility] LABORATORY RDWCV 15.7 (H) 11.4 - [facility] MANDO 13.8 % [facility] LABORATORY MPV 9.2 7.6 - 12.9 [facility] nRBC % Auto 0.0 % [facility] LABORATORY nRBC Abs Auto 0.000 0.000 - [facility] 0.000 [facility] x10(3)/[facility] LABORATORY Specimen Anatomical Collection Method Collection Time Receive d Time (Source) Location / / Volume Laterality Blood 02/16/2022 4:05 AM 4:20 EDT AM EDT Resulting Agency Comment Spec In Lab Veto Hidalgo MD HEMATOLOGY ORDERABLES Performing Organization Address City/State/[place] [address] (ABNORMAL) Basic Metabolic Panel (non-fasting) (02/16/2022 4:05 AM EDT) P athologist Signature Glucose Lvl 94 65 - 199 [facility] mg/dL [facility] LABORATORY Comment: Diabetes: >=200 mg/dL plus symp toms BUN 35 (H) 10 - 20 mg/dL [facility] LABORATORY Creatinine 3.65 (H) 0.80 - 1.50 mg/dL [facility] LABORATORY Comment: result rechecked-bm Sodium 128 (L) 135 - 145 mmol/L [facility] LABORATORY Potassium 4.4 3.5 - 5.0 mmol/L [facility] LABORATORY Comment: Please note: ??Patients with WBC >100,00 0 may have falsely elevated Potassium levels. ??For accurate Potassium quantif ication in these patients send serum separator tube (gold top) for subsequent determinations. ??Contact the Clinical Chemistry Laboratory if there are any qu estions. Chloride 95 (L) 98 - 107 mmol/L [facility] LABORATORY CO2 26 22 - 31 mmol/L [facility] LABORATORY Anion Gap 7 5 - 15 mmol/L [facility] LABORATORY Calcium 7.7 (L) 8.5 - 10.5 mg/dL [facility] LABORATORY Estimated GFR 22 (L) >=60 mL/min/1.73 m?? [facility] LABORATORY Comment: This patient's estimated [...] Organization Address City/State/[place] [address] Phosphorus (02/16/2022 4:05 AM EDT) athologist Signature Phosphorus 4.5 2.5 - 4.5 [facility] M[facility] mg/dL [facility] LABORATORY Specimen Anatomical Collection Method Collection Time Receive d Time (Source) Location / / Volume Laterality Blood 02/16/2022 4:05 AM 2 4:20 EDT AM EDT Resulting Agency Comment Spec In Lab Gela Novak MD CHEMISTRY ORDERABLES Performing Organization Address City/[facility]/ZIP Code Phon e Number [address] Magnesium (02/16/2022 4:05 AM EDT) athologist Signature Magnesium 0.83 0.69 - 1.07 [facility] mmol/L [facility] LABORATORY Specimen Anatomical Collection Method Collection Time Receive d Time (Source) Location / / Volume Laterality Blood 02/16/2022 4:05 AM 2 4:20 EDT AM EDT Resulting Agency Comment Spec In Lab Gela Novak MD CHEMISTRY ORDERABLES Performing Organization Address City/[facility]/[place] [address] Anaerobic Culture (02/15/2022 9:06 AM EDT) [facility] Method Time Signature Anaerobic No anaerobic [facility] Culture organisms [facility] LABORATORY Specimen Anatomical Collection Method Collection Time Receive d Time (Source) Location / / Volume Laterality Deep Wound STRUCTURE OF LEFT 02/15/2022 9:06 AM 01/29 THIGH / Unknown EDT 10:49 AM EDT Comment: Left thigh wound culture Resulting Agency Comment Spec In Lab Jayme Armstrong MD MICROBIOLOGY - GENERAL ORDER JT Performing Organization Address City/[facility]/ZIP Code Phon e Number [address] (ABNORMAL) Abscess/Wound Aspirate Culture (02/15/2022 9:06 AM EDT) [facility] gist Method Time Signature Abscess/Wound Few Serratia marcescens MA RY Aspirate Rare Pseudomonas aeruginosa HI [facility] Culture Rare mixed bacterial morphotypes suggestive of normal cutaneous yessy [facility] LABORATORY Gram Stain Moderate Gram Positive Cocci JOSH Rare Gram Negative Rods [facility] OCK () [facility] LABORATORY Organism Serratia JOSH marcescens (A) [facility] LABORATORY Organism Pseudomonas JOS[facility] aeruginosa (A) [facility] LABORATORY Specimen Anatomical Collection Method [...] Organization Address City/State/[place] [address] (ABNORMAL) Differential, Automated (02/15/2022 3:50 AM EDT) [facility] Method Time Signature Neutrophils % 61.8 % [facility] LABORATORY Neutr Abs (ANC) 13.66 (H) 1.70 - [facility] 6.10 [facility] x10(3)/[facility] LABORATORY Lymphocytes % 7.3 % [facility] LABORATORY Lymphocytes Abs 1.6 0.9 - 3.2 [facility] x10(3)/[facility] LABORATORY Monocytes % 5.4 % [facility] LABORATORY Monocyte Abs 1.2 (H) 0.3 - 0.9 [facility] x10(3)/[facility] LABORATORY Eosinophils % 3.1 % [facility] LABORATORY Eosinophils Abs 0.7 (H) 0.0 - 0.4 [facility] x10(3)/[facility] LABORATORY Basophils % 0.5 % [facility] LABORATORY Basophils Abs 0.1 0.0 - 0.1 [facility] x10(3)/[facility] LABORATORY Immature Gran % 21.90 % [facility] LABORATORY Comment: Immature granulocytes(IG's)percentage an d absolute [...] Organization Address City/State/[place] [address] (ABNORMAL) Hemogram (02/15/2022 3:50 AM EDT) Analysis Performed At Patho logist Time Signature WBC 22.1 (H) 4.0 - 9.5 [facility] x[facility](3[facility] LABORATORY RBC 2.43 (L) 4.58 - [facility] 5.54 [facility] x10(6)/[facility] LABORATORY Hemoglobin 7.2 (L) 13.7 - [facility] 16.5 g/dL [facility] LABORATORY Hematocrit 21.3 (L) 40.5 - [facility] 48.5 % [facility] LABORATORY MCV 87.7 82.9 - [facility] 93.1 [facility] LABORATORY MCH 29.6 27.5 - [facility] 32.1 pg [facility] LABORATORY MCHC 33.8 32.0 - [facility] 35.7 g/dL [facility] LABORATORY Platelets 254 145 - 357 [facility] x10(3)/[facility] LABORATORY RDWSD 49.2 (H) 36.0 - [facility] 45.0 [facility] LABORATORY RDWCV 15.3 (H) 11.4 - [facility] 13.8 % [facility] LABORATORY MPV 9.3 7.6 - 12.9 [facility] LABORATORY nRBC % Auto 0.0 % [facility] LABORATORY nRBC Abs Auto 0.000 0.000 - [facility] MANDO 0.000 [facility] x10(3)/[facility] LABORATORY Specimen Anatomical Collection Method Collection Time Receive d Time (Source) Location / / Volume Laterality Blood 02/15/2022 3:50 AM 4:05 EDT AM EDT Resulting Agency Comment Spec In Lab Veto Hidalgo MD HEMATOLOGY ORDERABLES Performing Organization Address City/State/[place] [address] (ABNORMAL) Basic Metabolic Panel (non-fasting) (02/15/2022 3:50 AM EDT) P athologist Signature Glucose Lvl 91 65 - 199 [facility] mg/dL [facility] LABORATORY Comment: Diabetes: >=200 mg/dL plus symp toms BUN 62 (H) 10 - 20 mg/dL [facility] LABORATORY Creatinine 5.16 (H) 0.80 - 1.50 mg/dL [facility] LABORATORY Comment: result rechecked-SW Sodium 126 (L) 135 - 145 mmol/L [facility] LABORATORY Potassium 4.8 3.5 - 5.0 mmol/L [facility] LABORATORY Comment: Please note: ??Patients with WBC >100,00 0 may have falsely elevated Potassium levels. ??For accurate Potassium quantif ication in these patients send serum separator tube (gold top) for subsequent determinations. ??Contact the Clinical Chemistry Laboratory if there are any qu estions. Chloride 92 (L) 98 - 107 mmol/L [facility] LABORATORY CO2 23 22 - 31 mmol/L [facility] LABORATORY Anion Gap 11 5 - 15 mmol/L [facility] LABORATORY Calcium 7.5 (L) 8.5 - 10.5 mg/dL [facility] LABORATORY Estimated GFR 14 (L) >=60 mL/min/1.73 m?? [facility] LABORATORY Comment: This patient's estimated [...] Organization Address City/State/[place] [address] (ABNORMAL) Phosphorus (02/15/2022 3:50 AM EDT) P athologist Signature Phosphorus 5.7 (H) 2.5 - 4.5 [facility] mg/dL [facility] LABORATORY Specimen Anatomical Collection Method Collection Time Receive d Time (Source) Location / / Volume Laterality Blood 02/15/2022 3:50 AM 2 4:05 EDT AM EDT Resulting Agency Comment Spec In Lab Gela Novak MD CHEMISTRY ORDERABLES Performing Organization Address City/[facility]/ZIP Code Phon e Number [address] Magnesium (02/15/2022 3:50 AM EDT) P athologist Signature Magnesium 0.82 0.69 - 1.07 [facility] mmol/L [facility] LABORATORY Specimen Anatomical Collection Method Collection Time Receive d Time (Source) Location / / Volume Laterality Blood 02/15/2022 3:50 AM 2 4:05 EDT AM EDT Resulting Agency Comment Spec In Lab Gela Novak MD CHEMISTRY ORDERABLES Performing Organization Address City/[facility]/[place] [address] Scan, Peripheral Blood (02/14/2022 5:26 AM EDT) Patholo gist Method Time Signature Plat Estimate Normal [facility] LABORATORY RBC Morphology Abnormal [facility] LABORATORY Hypochromia Slight [facility] LABORATORY Specimen Anatomical Collection Method Collection Time Receive d Time (Source) Location / / Volume Laterality Blood 02/14/2022 5:26 AM 2 5:45 EDT AM EDT Resulting Agency Comment Spec In Lab Veto Hidalgo MD HEMATOLOGY ORDERABLES Performing Organization Address City/State/[place] [address] (ABNORMAL) Differential, Automated (02/14/2022 5:26 AM EDT) Patholo gist Method Time Signature Neutrophils % 52.2 % [facility] LABORATORY Neutr Abs (ANC) 12.07 (H) 1.70 - [facility] 6.10 [facility] x10(3)/[facility] LABORATORY Lymphocytes % 7.7 % [facility] LABORATORY Lymphocytes Abs 1.8 0.9 - 3.2 [facility] x10(3)/[facility] LABORATORY Monocytes % 6.7 % [facility] LABORATORY Monocyte Abs 1.5 (H) 0.3 - 0.9 [facility] x10(3)/[facility] LABORATORY Eosinophils % 3.1 % [facility] LABORATORY Eosinophils Abs 0.7 (H) 0.0 - 0.4 [facility] x10(3)/[facility] LABORATORY Basophils % 0.3 % [facility] LABORATORY Basophils Abs 0.1 0.0 - 0.1 [facility] x10(3)/[facility] LABORATORY Immature Gran % 30.00 % [facility] LABORATORY Comment: Immature granulocytes(IG's)percentage an d absolute [...] Organization Address City/State/[place] [address] (ABNORMAL) Hemogram (02/14/2022 5:26 AM EDT) Analysis Performed At Patho logist Time Signature WBC 23.1 (H) 4.0 - 9.5 [facility] x10(3)/[facility] LABORATORY RBC 2.62 (L) 4.58 - [facility] M[facility] 5.54 [facility] x10(6)/[facility] LABORATORY Hemoglobin 8.0 (L) 13.7 - [facility] 16.5 g/dL [facility] LABORATORY Hematocrit 23.0 (L) 40.5 - [facility] 48.5 % [facility] LABORATORY MCV 87.8 82.9 - [facility] 93.1 [facility] LABORATORY MCH 30.5 27.5 - [facility] M[facility] 32.1 pg [facility] LABORATORY MCHC 34.8 32.0 - [facility] 35.7 g/dL [facility] LABORATORY Platelets 240 145 - 357 [facility] x10(3)/[facility] LABORATORY RDWSD 49.2 (H) 36.0 - [facility] 45.0 [facility] LABORATORY RDWCV 15.5 (H) 11.4 - [facility] 13.8 % [facility] LABORATORY MPV 9.4 7.6 - 12.9 [facility] LABORATORY nRBC % Auto 0.0 % [facility] LABORATORY nRBC Abs Auto 0.000 0.000 - [facility] 0.000 [facility] x10(3)/[facility] LABORATORY Specimen Anatomical Collection Method Collection Time Receive d Time (Source) Location / / Volume Laterality Blood 02/14/2022 5:26 AM 5:45 EDT AM EDT Resulting Agency Comment Spec In Lab Veto Hidalgo MD HEMATOLOGY ORDERABLES Performing Organization Address City/State/[place] [address] (ABNORMAL) Basic Metabolic Panel (non-fasting) (02/14/2022 5:26 AM EDT) P athologist Signature Glucose Lvl 92 65 - 199 [facility] mg/dL [facility] LABORATORY Comment: Diabetes: >=200 mg/dL plus symp toms BUN 47 (H) 10 - 20 mg/dL [facility] LABORATORY Creatinine 4.06 (H) 0.80 - 1.50 mg/dL [facility] LABORATORY Comment: result rechecked-KS Sodium 127 (L) 135 - 145 mmol/L [facility] LABORATORY Potassium 4.4 3.5 - 5.0 mmol/L [facility] LABORATORY Comment: Please note: ??Patients with WBC >100,00 0 may have falsely elevated Potassium levels. ??For accurate Potassium quantif ication in these patients send serum separator tube (gold top) for subsequent determinations. ??Contact the Clinical Chemistry Laboratory if there are any qu estions. Chloride 91 (L) 98 - 107 mmol/L [facility] LABORATORY CO2 23 22 - 31 mmol/L [facility] LABORATORY Anion Gap 13 5 - 15 mmol/L [facility] LABORATORY Calcium 7.1 (L) 8.5 - 10.5 mg/dL [facility] LABORATORY Estimated GFR 19 (L) >=60 mL/min/1.73 m?? [facility] LABORATORY Comment: This patient's estimated [...] Organization Address City/State/[place] [address] (ABNORMAL) Phosphorus (02/14/2022 5:26 AM EDT) P athologist Signature Phosphorus 4.7 (H) 2.5 - 4.5 [facility] mg/dL [facility] LABORATORY Specimen Anatomical Collection Method Collection Time Receive d Time (Source) Location / / Volume Laterality Blood 02/14/2022 5:26 AM 2 5:45 EDT AM EDT Resulting Agency Comment Spec In Lab Gela Novak MD CHEMISTRY ORDERABLES Performing Organization Address City/State/ZIP Code Phon e Number [address] Magnesium (02/14/2022 5:26 AM EDT) P athologist Signature Magnesium 0.80 0.69 - 1.07 [facility] mmol/L [facility] LABORATORY Specimen Anatomical Collection Method Collection Time Receive d Time (Source) Location / / Volume Laterality Blood 02/14/2022 5:26 AM 2 5:45 EDT AM EDT Resulting Agency Comment Spec In Lab Gela Novak MD CHEMISTRY ORDERABLES Performing Organization Address City/[facility]/[place] [address] Femur w Contrast [...] who have questions please contact the health administrator health care facility that requested your imaging first. ? Electronically signed by: Zander Hayes DO [facility] ([phone]), at 02/13/2022 6:27 PM Narrative 02/13/2022 6:27 [...] ho have questions please contact the health administrator health care facility that requested your imaging first. Electronically signed by: Zandre Hayes DO, [facility] ([phone]), at 02/13/2022 6:27 PM Parrish Betancourt MD [...] 3.5 cm. MRI may be beneficial in [facility] er characterization. 5. Anasarca 6. RIGHT basilar pleural effusions and u nderlying airspace consolidations, atelectasis versus pneumonitis. Thank you for letting us participate in the care of this patient. ??If you are a health care provider and have any questi ons regarding this report, please contact the number below. ??For patients who have questions please contact the health administrator health care facility that requested your imaging first. ? Electronically signed by: Zander Hayes DO, [facility] ([phone]), at 02/13/2022 6:27 PM Narrative 02/13/2022 6:27 [...] abnormal periosteal react ion. Procedure Note Zander Hayes DO - 02/13/2022Formatt ing of this note [...] ho have questions please contact the health administrator health care facility that requested your imaging first. Electronically signed by: Zander Hayes DO [facility] ([phone]), at 02/13/2022 6:27 PM Parrish Betancourt MD [...] who have questions please contact the health administrator health care facility that requested your imaging first. ? Electronically signed by: Mercedes Redding MD [facility] ([phone]), at 02/13/2022 8:56 AM Narrative 02/13/2022 8:56 [...] ho have questions please contact the health administrator health care facility that requested your imaging first. Parrish Betancourt MD IMG DX ORDERABLES Scan, Peripheral Blood (02/13/2022 12:20 AM EDT) [facility] Method Time Signature Plat Estimate Normal [facility] LABORATORY RBC Morphology Abnormal [facility] LABORATORY Hypochromia Slight [facility] LABORATORY Glyndon Cells 1-5 /HPF [facility] LABORATORY Stippled RBCs Present >1/HPF [facility] LABORATORY Toxic Present [facility] LABORATORY Specimen Anatomical Collection Method Collection Time Receive d Time (Source) Location / / Volume Laterality Blood 02/13/2022 12:20 02/13/2022 AM EDT 12:37 AM EDT Resulting Agency Comment Spec In Lab Kaitlyn Rock MD HEMATOLOGY ORDERABLES Performing Organization Address City/State/[place] [address] (ABNORMAL) Differential, Automated (02/13/2022 12:20 AM EDT) [facility] Method Time Signature Neutrophils % 44.9 % [facility] LABORATORY Neutr Abs (ANC) 11.00 (H) 1.70 - [facility] 6.10 [facility] x10(3)/[facility] LABORATORY Lymphocytes % 8.8 % [facility] LABORATORY Lymphocytes Abs 2.2 0.9 - 3.2 [facility] x10(3)/[facility] LABORATORY Monocytes % 9.3 % [facility] LABORATORY Monocyte Abs 2.3 (H) 0.3 - 0.9 [facility] x10(3)/[facility] LABORATORY Eosinophils % 2.6 % [facility] LABORATORY Eosinophils Abs 0.6 (H) 0.0 - 0.4 [facility] x10(3)/[facility] LABORATORY Basophils % 0.3 % [facility] LABORATORY Basophils Abs 0.1 0.0 - 0.1 [facility] x10(3)/[facility] LABORATORY Immature Gran % 34.10 % [facility] LABORATORY Comment: Immature granulocytes(IG's)percentage an d absolute [...] Organization Address City/State/[place] [address] (ABNORMAL) Hemogram (02/13/2022 12:20 AM EDT) Analysis Performed At Patho logist Time Signature WBC 24.5 (H) 4.0 - 9.5 [facility] x10(3)/[facility] LABORATORY RBC 2.72 (L) 4.58 - [facility] 5.54 [facility] x10(6)/[facility] LABORATORY Hemoglobin 8.0 (L) 13.7 - [facility] 16.5 g/dL [facility] LABORATORY Hematocrit 23.6 (L) 40.5 - [facility] [place] 48.5 % [facility] LABORATORY MCV 86.8 82.9 - [facility] 93.1 [facility] LABORATORY MCH 29.4 27.5 - [facility] [place] 32.1 pg [facility] LABORATORY MCHC 33.9 32.0 - [facility] [place] 35.7 g/dL [facility] LABORATORY Platelets 201 145 - 357 [facility] x10(3)/[facility] LABORATORY RDWSD 48.3 (H) 36.0 - [facility] [place] 45.0 [facility] LABORATORY RDWCV 15.4 (H) 11.4 - [facility] [place] 13.8 % [facility] LABORATORY MPV 9.7 7.6 - 12.9 [facility] LABORATORY nRBC % Auto 0.0 % [facility] LABORATORY nRBC Abs Auto 0.000 0.000 - [facility] [place] 0.000 [facility] x10(3)/[facility] LABORATORY Specimen Anatomical Collection Method Collection Time Receive d Time (Source) Location / / Volume Laterality Blood 02/13/2022 12:20 02/13/2022 AM EDT 12:37 AM EDT Resulting Agency Comment Spec In Lab Kaitlyn Rock MD HEMATOLOGY ORDERABLES Performing Organization Address City/State/ZIP Code Phon e Number [place] [id number] HOSPITAL LAB[address]ORY Drive (ABNORMAL) Basic Metabolic Panel (non-fasting) (02/13/2022 12:20 AM EDT) P athologist Signature Glucose Lvl 120 65 - 199 [facility] LABORATORY Comment: Diabetes: >=200 mg/dL plus symp toms BUN 30 (H) 10 - 20 mg/dL [facility] LABORATORY Creatinine 2.85 (H) 0.80 - 1.50 mg/dL [facility] LABORATORY Comment: result rechecked-bm Sodium 127 (L) 135 - 145 mmol/L [facility] Potassium 3.8 3.5 - 5.0 mmol/L [facility] Comment: Please note: ??Patients with WBC >100,00 0 may have falsely elevated Potassium levels. ??For accurate Potassium quantif ication in these patients send serum separator tube (gold top) for subsequent determinations. ??Contact the Clinical Chemistry Laboratory if there are any qu estions. Chloride 94 (L) 98 - 107 mmol/L [facility] CO2 27 22 - 31 mmol/L [facility] Anion Gap 6 5 - 15 mmol/L [facility] Calcium 7.0 (L) 8.5 - 10.5 mg/dL [facility] Comment: result rechecked-bm Estimated GFR 30 (L) >=60 mL/min/1.73 m?? [facility] Comment: This patient's estimated [...] EDT Resulting Agency Comment Spec In Lab Glea Novak MD CHEMISTRY ORDERABLES Performing Organization Address City/[facility]/[place] [address] Phosphorus (02/13/2022 12:20 AM EDT) P athologist Signature Phosphorus 2.8 2.5 - 4.5 [facility] mg/dL [facility] Specimen Anatomical Collection Method Collection Time Receive d Time (Source) Location / / Volume Laterality Blood 02/13/2022 12:20 02/13/2022 AM EDT 12:37 AM EDT Resulting Agency Comment Spec In Lab Gela Novak MD CHEMISTRY ORDERABLES Performing Organization Address City/State/[place] [address] Magnesium (02/13/2022 12:20 AM EDT) P athologist Signature Magnesium 0.79 0.69 - 1.07 [facility] LABORATORY Specimen Anatomical Collection Method Collection Time Receive d Time (Source) Location / / Volume Laterality Blood 02/13/2022 12:20 02/13/2022 AM EDT 12:37 AM EDT Resulting Agency Comment Spec In Lab Gela Novak MD CHEMISTRY ORDERABLES Performing Organization Address City/State/[place] [address] (ABNORMAL) Sodium (02/12/2022 4:45 PM EDT) P athologist Signature Sodium 128 (L) 135 - 145 [facility] Specimen Anatomical Collection Method Collection Time Receive d Time (Source) Location / / Volume Laterality Blood 02/12/2022 4:45 PM 2 5:17 EDT PM EDT Resulting Agency Comment Spec In Lab Parrish Betancourt MD CHEMISTRY ORDERABLES Performing Organization Address City/State/ZIP Code Phon e Number [address] Prepare RBC (02/12/2022 9:55 AM EDT) P athologist Signature Dispensed? Yes [facility] Specimen Anatomical Collection Method Collection Time Receive d Time (Source) Location / / Volume Laterality Blood 02/12/2022 9:55 AM 2 9:53 EDT AM EDT Parrish Betancourt MD BLOOD BANK ORDERABLES Performing Organization Address City/State/[place] [address] (ABNORMAL) Sodium (02/12/2022 9:16 AM EDT) P athologist Signature Sodium 125 (L) 135 - 145 [facility] mmol/[facility] Specimen Anatomical Collection Method Collection Time Receive d Time (Source) Location / / Volume Laterality Blood 02/12/2022 9:16 AM 9:18 EDT AM EDT Resulting Agency Comment Spec In Lab Parrish Betancourt MD CHEMISTRY ORDERABLES Performing Organization Address City/State/[place] [address] (ABNORMAL) Differential, Automated (02/12/2022 12:30 AM EDT) [facility] Method Time Signature Neutrophils % 49.1 % [facility] Neutr Abs (ANC) 11.38 (H) 1.70 - [facility] 6.10 [facility] x10(3)/[facility] LABORATORY Lymphocytes % 8.6 % [facility] Lymphocytes Abs 2.0 0.9 - 3.2 [facility] x10(3)/[facility] LABORATORY Monocytes % 10.6 % [facility] Monocyte Abs 2.4 (H) 0.3 - 0.9 [facility] x10(3)/[facility] LABORATORY Eosinophils % 0.9 % [facility] Eosinophils Abs 0.2 0.0 - 0.4 [facility] x10(3)/[facility] LABORATORY Basophils % 0.3 % [facility] Basophils Abs 0.1 0.0 - 0.1 [facility] x10(3)/[facility] LABORATORY Immature Gran % 30.50 % [facility] Comment: Immature granulocytes(IG's)percentage an d absolute [...] Organization Address City/State/[place] [address] (ABNORMAL) Hemogram (02/12/2022 12:30 AM EDT) Analysis Performed At Patho logist Time Signature WBC 23.2 (H) 4.0 - 9.5 [facility] x[facility](3[facility] LABORATORY RBC 2.37 (L) 4.58 - [facility] MANDO 5.54 [facility] x10(6)/[facility] LABORATORY Hemoglobin 6.9 (L) 13.7 - [facility] 16.5 g/dL [facility] Hematocrit 20.7 (L) 40.5 - [facility] 48.5 % [facility] MCV 87.3 82.9 - [facility] 93.1 [facility] LABORATORY MCH 29.1 27.5 - [facility] 32.1 pg [facility] MCHC 33.3 32.0 - [facility] 35.7 g/dL [facility] Platelets 166 145 - 357 [facility] x10(3)/[facility] LABORATORY RDWSD 49.0 (H) 36.0 - [facility] MAND[facility] 45.0 [facility] LABORATORY RDWCV 15.5 (H) 11.4 - [facility] 13.8 % [facility] MPV 10.2 7.6 - 12.9 [facility] nRBC % Auto 0.0 % [facility] nRBC Abs Auto 0.000 0.000 - [facility] MANDO 0.000 [facility] x10(3)/[facility] LABORATORY Specimen Anatomical Collection Method Collection Time Receive d Time (Source) Location / / Volume Laterality Blood 02/12/2022 12:30 02/12/2022 1:03 AM EDT AM EDT Resulting Agency Comment Spec In Lab Kaitlyn Rock MD HEMATOLOGY ORDERABLES Performing Organization Address City/[facility]/[place] [address] (ABNORMAL) Basic Metabolic Panel (non-fasting) (02/12/2022 12:30 AM EDT) P athologist Signature Glucose Lvl 103 65 - 199 [facility] mg/dL [facility] Comment: Diabetes: >=200 mg/dL plus symp toms BUN 39 (H) 10 - 20 mg/dL [facility] Comment: result rechecked-EWR Creatinine 3.74 (H) 0.80 - 1.50 mg/dL [facility] Comment: result rechecked-EWR Sodium 127 (L) 135 - 145 mmol/L [facility] Potassium 4.4 3.5 - 5.0 mmol/L [facility] Comment: Please note: ??Patients with WBC >100,00 0 may have falsely elevated Potassium levels. ??For accurate Potassium quantif ication in these patients send serum separator tube (gold top) for subsequent determinations. ??Contact the Clinical Chemistry Laboratory if there are any qu estions. Chloride 99 98 - 107 mmol/L [facility] CO2 21 (L) 22 - 31 mmol/L [facility] Anion Gap 7 5 - 15 mmol/L [facility] Calcium 6.1 (Critical) 8.5 - 10.5 mg/dL [facility] Comment: Called by: CLAUDIA, Read back by: Jesus Robertson, Date/Time:02/12/22 02:00. Estimated GFR 21 (L) >=60 mL/min/1.73 m?? [facility] Comment: This patient's estimated [...] Novak MD CHEMISTRY ORDERABLES Performing Organization Address City/[facility]/[place] [address] Phosphorus (02/12/2022 12:30 AM EDT) P athologist Signature Phosphorus 2.7 2.5 - 4.5 [facility] mg/dL [facility] Specimen Anatomical Collection Method Collection Time Receive d Time (Source) Location / / Volume Laterality Blood 02/12/2022 12:30 02/12/2022 1:03 AM EDT AM EDT Resulting Agency Comment Spec In Lab Gela Novak MD CHEMISTRY ORDERABLES Performing Organization Address City/[facility]/[place] [address] Magnesium (02/12/2022 12:30 AM EDT) P athologist Signature Magnesium 0.79 0.69 - 1.07 [facility] mmol/L [facility] Specimen Anatomical Collection Method Collection Time Receive d Time (Source) Location / / Volume Laterality Blood 02/12/2022 12:30 02/12/2022 1:03 AM EDT AM EDT Resulting Agency Comment Spec In Lab Gela Novak MD CHEMISTRY ORDERABLES Performing Organization Address City/[facility]/[place] [address] (ABNORMAL) Albumin Level (02/12/2022 12:30 AM EDT) P athologist Signature Albumin 1.3 (L) 3.2 - 5.2 [facility] g/dL [facility] Specimen Anatomical Collection Method Collection Time Receive d Time (Source) Location / / Volume Laterality Blood 02/12/2022 12:30 02/12/2022 1:03 AM EDT AM EDT Resulting Agency Comment Spec In Lab Parrish Betancourt MD CHEMISTRY ORDERABLES Performing Organization Address City/State/[place] [address] (ABNORMAL) Prealbumin (02/12/2022 12:30 AM EDT) P athologist Signature Prealbumin 15 (L) 20 - 40 [facility] mg/dL [facility] Comment: Prealbumin levels are generally lower in the pediatric population; adult concentrations are usually attained near puberty. Specimen Anatomical Collection Method Collection Time Receive d Time (Source) Location / / Volume Laterality Blood 02/12/2022 12:30 02/12/2022 1:03 AM EDT AM EDT Resulting Agency Comment Spec In Lab Parrish Betancourt MD CHEMISTRY ORDERABLES Performing Organization Address City/State/ZIP Code Phon e Number [address] SCAN DOC: LAB (02/12/2022 [...] who have questions please contact the health administrator health care facility that requested your imaging first. ? Electronically signed by: Bernadine [facility] ([phone]), at 02/11/2022 5:54 PM Narrative 02/11/2022 5:54 [...] ho have questions please contact the health administrator health care facility that requested your imaging first. Parrish Betancourt MD IMG MRI ORDERABLES (ABNORMAL) Sodium (02/11/2022 4:09 PM EDT) P athologist Signature Sodium 129 (L) 135 - 145 [facility] mmol/L [facility] Specimen Anatomical Collection Method Collection Time Receive d Time (Source) Location / / Volume Laterality Blood 02/11/2022 4:09 PM 2 4:33 EDT PM EDT Resulting Agency Comment Spec In Lab Parrish Betancourt MD CHEMISTRY ORDERABLES Performing Organization Address City/State/[place] [address] (ABNORMAL) Sodium (02/11/2022 8:20 AM EDT) P athologist Signature Sodium 127 (L) 135 - 145 [facility] mmol/L [facility] Specimen Anatomical Collection Method Collection Time Receive d Time (Source) Location / / Volume Laterality Blood 02/11/2022 8:20 AM 2 8:39 EDT AM EDT Resulting Agency Comment Spec In Lab Parrish Betancourt MD CHEMISTRY ORDERABLES Performing Organization Address City/State/[place] [address] Scan, Peripheral Blood (02/11/2022 12:37 AM EDT) Patholo gist Method Time Signature Plat Estimate Decreased [facility] RBC Morphology Abnormal [facility] Polychromasia Present >5/HPF [facility] Ovalocytes 1-5 /HPF [facility] Stippled RBCs Present >1/HPF [facility] Dohle Bodies Present [facility] Specimen Anatomical Collection Method Collection Time Receive d Time (Source) Location / / Volume Laterality Blood 02/11/2022 12:37 02/11/2022 AM EDT 12:47 AM EDT Resulting Agency Comment Spec In Lab Jeanette Escamilla KATERYNA HEMATOLOGY ORDERABLES Performing Organization Address City/[facility]/ZIP Code Phon e Number [address] Green Tube HOLD (02/11/2022 12:37 AM EDT) P athologist Signature Green Hold Sample in [facility] LABORATORY Specimen Anatomical Collection Method Collection Time Receive d Time (Source) Location / / Volume Laterality Blood Venous Draw / 02/11/2022 12:37 02/11/2022 Unknown AM EDT 12:48 AM EDT Jeanette Escamilla KATERYNA CHEMISTRY ORDERABLES Performing Organization Address City/[facility]/ZIP Code Phon e Number [address] (ABNORMAL) Differential, Automated (02/11/2022 12:37 AM EDT) Patholo gist Method Time Signature Neutrophils % 39.1 % [facility] Neutr Abs (ANC) 7.07 (H) 1.70 - [facility] 6.10 [facility] x10(3)/[facility] LABORATORY Lymphocytes % 12.7 % [facility] Lymphocytes Abs 2.3 0.9 - 3.2 [facility] x10(3)/[facility] LABORATORY Monocytes % 11.4 % [facility] Monocyte Abs 2.1 (H) 0.3 - 0.9 [facility] x10(3)/[facility] LABORATORY Eosinophils % 2.9 % [facility] Eosinophils Abs 0.5 (H) 0.0 - 0.4 [facility] x10(3)/[facility] LABORATORY Basophils % 0.5 % [facility] Basophils Abs 0.1 0.0 - 0.1 [facility] x10(3)/[facility] LABORATORY Immature Gran % 33.40 % [facility] Comment: Immature granulocytes(IG's)percentage an d absolute [...] Organization Address City/State/[place] [address] (ABNORMAL) Hemogram (02/11/2022 12:37 AM EDT) Analysis Performed At Patho logist Time Signature WBC 18.1 (H) 4.0 - 9.5 [facility] x10(3)/[facility] LABORATORY RBC 2.44 (L) 4.58 - [facility] 5.54 [facility] x10(6)/[facility] LABORATORY Hemoglobin 7.0 (L) 13.7 - [facility] 16.5 g/dL [facility] Hematocrit 21.0 (L) 40.5 - [facility] 48.5 % [facility] MCV 86.1 82.9 - [facility] 93.1 [facility]ORATORY MCH 28.7 27.5 - [facility] MANDO 32.1 pg [facility] MCHC 33.3 32.0 - [facility] 35.7 g/dL [facility] Platelets 140 (L) 145 - 357 [facility] x10(3)/[facility] LABORATORY RDWSD 50.0 (H) 36.0 - [facility] 45.0 [facility] RDWCV 15.9 (H) 11.4 - [facility] 13.8 % [facility] MPV 10.0 7.6 - 12.9 [facility] LABORATORY nRBC % Auto 0.0 % [facility] nRBC Abs Auto 0.000 0.000 - [facility] 0.000 [facility] x10(3)/[facility] LABORATORY Specimen Anatomical Collection Method Collection Time Receive d Time (Source) Location / / Volume Laterality Blood 02/11/2022 12:37 02/11/2022 AM EDT 12:47 AM EDT Resulting Agency Comment Spec In Lab Jeanette Juan Andi AVENDAÑO HEMATOLOGY ORDERABLES Performing Organization Address City/State/[place] [address] (ABNORMAL) Basic Metabolic Panel (non-fasting) (02/11/2022 12:37 AM EDT) athologist Signature Glucose Lvl 125 65 - 199 [facility] mg/dL [facility] Comment: Diabetes: >=200 mg/dL plus symp toms BUN 23 (H) 10 - 20 mg/dL [facility] Creatinine 2.42 (H) 0.80 - 1.50 mg/dL [facility] Sodium 128 (L) 135 - 145 mmol/L [facility] Potassium 3.8 3.5 - 5.0 mmol/L [facility] Comment: Please note: ??Patients with WBC >100,00 0 may have falsely elevated Potassium levels. ??For accurate Potassium quantif ication in these patients send serum separator tube (gold top) for subsequent determinations. ??Contact the Clinical Chemistry Laboratory if there are any qu estions. Chloride 96 (L) 98 - 107 mmol/L [facility] CO2 26 22 - 31 mmol/L [facility] Anion Gap 6 5 - 15 mmol/L [facility] Calcium 6.4 (Critical) 8.5 - 10.5 mg/dL [facility] Comment: Called by: kvng, Read back by: sakshi abreu, Date/Time:02/11/22 01:43.l Estimated GFR 36 (L) >=60 mL/min/1.73 m?? [facility] Comment: This patient's estimated [...] Novak MD CHEMISTRY ORDERABLES Performing Organization Address City/[facility]/ZIP Code Phon e Number [address] (ABNORMAL) Phosphorus (02/11/2022 12:37 AM EDT) P athologist Signature Phosphorus 2.1 (L) 2.5 - 4.5 [facility] mg/dL [facility] Specimen Anatomical Collection Method Collection Time Receive d Time (Source) Location / / Volume Laterality Blood 02/11/2022 12:37 02/11/2022 AM EDT 12:47 AM EDT Resulting Agency Comment Spec In Lab Gela Novak MD CHEMISTRY ORDERABLES Performing Organization Address City/[facility]/[place] [address] Magnesium (02/11/2022 12:37 AM EDT) P athologist Signature Magnesium 0.75 0.69 - 1.07 [facility] mmol/L [facility] Specimen Anatomical Collection Method Collection Time Receive d Time (Source) Location / / Volume Laterality Blood 02/11/2022 12:37 02/11/2022 AM EDT 12:47 AM EDT Resulting Agency Comment Spec In Lab Gela Novak MD CHEMISTRY ORDERABLES Performing Organization Address City/[facility]/ZIP Code Phon e Number [address] (ABNORMAL) Sodium (02/10/2022 4:47 PM EDT) P athologist Signature Sodium 132 (L) 135 - 145 [facility] mmol/L [facility] Specimen Anatomical Collection Method Collection Time Receive d Time (Source) Location / / Volume Laterality Blood 02/10/2022 4:47 PM 5:02 EDT PM EDT Resulting Agency Comment Spec In Lab Parrish Betancourt MD CHEMISTRY ORDERABLES Performing Organization Address City/State/ZIP Code Phon e Number [address] (ABNORMAL) Sodium (02/10/2022 9:05 AM EDT) P athologist Signature Sodium 129 (L) 135 - 145 [facility] mmol/L [facility] Specimen Anatomical Collection Method Collection Time Receive d Time (Source) Location / / Volume Laterality Blood Venous Draw / 02/10/2022 9:05 AM 02/11/20 9:36 Unknown EDT AM EDT Resulting Agency Comment Spec In Lab Kaitlyn Rock MD CHEMISTRY ORDERABLES Performing Organization Address City/[facility]/ZIP Code Phon e Number [address] Scan, Peripheral Blood (02/10/2022 12:00 AM EDT) [facility] Method Time Signature Plat Estimate Decreased [facility] RBC Morphology Abnormal [facility] Polychromasia Present >5/HPF [facility] Ovalocytes 1-5 /HPF [facility] Glyndon Cells 1-5 /HPF [facility] Stippled RBCs Present >1/HPF [facility] Dohle Bodies Present [facility] Giant Platelets Less than 1 /HPF [facility] Specimen (Source) Anatomical Collection Method Collection Time Re ceived Time Location / / Volume Laterality Blood 02/10/2022 02/10/2022 12:4 0 AM EDT Resulting Agency Comment Spec In Lab Kaitlyn Rock MD HEMATOLOGY ORDERABLES Performing Organization Address City/State/ZIP Code Phon e Number [place] [id number] [facility] LABORATORY Drive (ABNORMAL) Differential, Automated (02/10/2022 12:00 AM EDT) [facility] Method Time Signature Neutrophils % 52.5 % [facility] Neutr Abs (ANC) 8.47 (H) 1.70 - [facility] 6.10 [facility] x10(3)/[facility] LABORATORY Lymphocytes % 12.2 % [facility] Lymphocytes Abs 2.0 0.9 - 3.2 [facility] x10(3)/[facility] LABORATORY Monocytes % 17.3 % [facility] Monocyte Abs 2.8 (H) 0.3 - 0.9 [facility] x10(3)/[facility] LABORATORY Eosinophils % 2.5 % [facility] Eosinophils Abs 0.4 0.0 - 0.4 [facility] x10(3)/[facility] LABORATORY Basophils % 0.4 % [facility] Basophils Abs 0.1 0.0 - 0.1 [facility] x10(3)/[facility] LABORATORY Immature Gran % 15.10 % [facility] Comment: Immature granulocytes(IG's)percentage an d absolute [...] Rock MD HEMATOLOGY ORDERABLES Performing Organization Address City/[facility]/[place] [address] (ABNORMAL) Hemogram (02/10/2022 12:00 AM EDT) Analysis Performed At Patho logist Time Signature WBC 16.1 (H) 4.0 - 9.5 [facility] x10(3)/[facility] LABORATORY RBC 2.96 (L) 4.58 - [facility] 5.54 [facility] x10(6)/[facility] LABORATORY Hemoglobin 8.6 (L) 13.7 - [facility] 16.5 g/dL [facility] Hematocrit 25.2 (L) 40.5 - [facility] 48.5 % [facility] MCV 85.1 82.9 - [facility] 93.1 [facility] LABORATORY MCH 29.1 27.5 - [facility] 32.1 pg [facility] MCHC 34.1 32.0 - [facility] 35.7 g/dL [facility] Platelets 121 (L) 145 - 357 [facility] x10(3)/[facility] LABORATORY RDWSD 50.4 (H) 36.0 - [facility] 45.0 [facility] LABORATORY RDWCV 16.4 (H) 11.4 - [facility] 13.8 % [facility] LAB[facility]ATORY MPV 10.6 7.6 - 12.9 [facility] LABORATORY nRBC % Auto 0.0 % [facility] nRBC Abs Auto 0.000 0.000 - [facility] 0.000 [facility] x10(3)/[facility] LABORATORY Specimen (Source) Anatomical Collection Method Collection Time Re ceived Time Location / / Volume Laterality Blood 02/10/2022 02/10/2022 12:4 0 AM EDT Resulting Agency Comment Spec In Lab Kaitlyn Rock MD HEMATOLOGY ORDERABLES Performing Organization Address City/State/[place] [address] Phosphorus (02/10/2022 12:00 AM EDT) P athologist Signature Phosphorus 3.1 2.5 - 4.5 [facility] mg/dL [facility] LABORATORY Specimen (Source) Anatomical Collection Method Collection Time Re ceived Time Location / / Volume Laterality Blood 02/10/2022 02/10/2022 12:4 0 AM EDT Resulting Agency Comment Spec In Lab Gela Novak MD CHEMISTRY ORDERABLES Performing Organization Address City/State/ZIP Code Phon e Number [address] Magnesium (02/10/2022 12:00 AM EDT) athologist Signature Magnesium 0.87 0.69 - 1.07 [facility] mmol/L [facility] LABORATORY Specimen (Source) Anatomical Collection Method Collection Time Re ceived Time Location / / Volume Laterality Blood 02/10/2022 02/10/2022 12:4 0 AM EDT Resulting Agency Comment Spec In Lab Gela Novak MD CHEMISTRY ORDERABLES Performing Organization Address City/[facility] [place] [address] (ABNORMAL) Basic Metabolic Panel (non-fasting) (02/10/2022 12:00 AM EDT) athologist Signature Glucose Lvl 164 65 - 199 [facility] mg/dL [facility] LABORATORY Comment: Diabetes: >=200 mg/dL plus symp toms BUN 21 (H) 10 - 20 mg/dL [facility] LABORATORY Creatinine 1.89 (H) 0.80 - 1.50 mg/dL [facility] LABORATORY Sodium 130 (L) 135 - 145 mmol/L [facility] LABORATORY Potassium 3.9 3.5 - 5.0 mmol/L [facility] LABORATORY Comment: Please note: ??Patients with WBC >100,00 0 may have falsely elevated Potassium levels. ??For accurate Potassium quantif ication in these patients send serum separator tube (gold top) for subsequent determinations. ??Contact the Clinical Chemistry Laboratory if there are any qu estions. Chloride 96 (L) 98 - 107 mmol/L [facility] LABORATORY CO2 22 22 - 31 mmol/L [facility] LABORATORY Anion Gap 12 5 - 15 mmol/L [facility] LABORATORY Calcium 7.2 (L) 8.5 - 10.5 mg/dL [facility] LABORATORY Estimated GFR 48 (L) >=60 mL/min/1.73 m?? [facility] LABORATORY Comment: This patient's estimated [...] Organization Address City/State/ZIP Code Phon e Number [place] [id number] (ABNORMAL) Blood Gas Arterial (NLH) (02/09/2022 5:43 PM EDT) Analysis Performed At Patho logist Time Signature pH Art 7.46 (H) 7.35 - [facility] 7.45 [facility] LABORATORY pCO2 Art 35 35 - 45 [facility] mmHg [facility] LABORATORY pO2 Art 73 (L) 85 - 104 [facility] LABORATORY HCO3 Art 24.8 20.0 - [facility] 26.0 [facility] mmol/L [facility] LABORATORY BE Art 1.1 -3.0 - 3.0 [facility] mmol/L [facility] LABORATORY Hgb Blood Gas 9.2 (L) 13.7 - [facility] 16.5 g/dL [facility] LABORATORY O2HB Art 94.9 94.0 - [facility] 97.0 % [facility] LABORATORY COHB Art 0.5 % [facility] LABORATORY Comment: Nonsmokers: ??0.5-1.5% COHB Smokers: ??Variable, but usually less th an 10% Toxic: 20 - 30% COHB Lethal: ??Greater than 60% COHB METHB Art 0.3 <=1.5 % [facility] LABORATORY Na Whole Blood 126 (L) 135 - 145 mmol/L [facility] LABORATORY K Whole Blood 4.2 3.5 - 5.0 mmol/L [facility] LABORATORY Comment: Please note: ??Patients with WBC >100,00 0 may have falsely elevated Potassium levels. ??Contact the Clinical Chemistry Laboratory if there are any questions. ICa Whole Blood 1.12 (L) 1.15 - 1.33 mmol/L [facility] LABORATORY Comment: Note: ??Total bilirubin higher than 20 m g/dL may lead to falsely low ionized calcium. CL Whole Blood 100 98 - 107 mmol/L [facility] LABORATORY Gluc Whole Bld 97 65 - 199 mg/dL [facility] LABORATORY Comment: Diabetes: >=200 mg/dL plus symp toms. Lactate WB 1.1 0.5 - 2.2 mmol/L [facility] LABORATORY Specimen Anatomical Collection Method Collection Time Receive d Time (Source) Location / / Volume Laterality Blood Arterial Draw / 02/09/2022 5:43 PM 2021 5:43 Unknown EDT PM EDT Resulting Agency Comment Spec In Lab Kaitlyn Rock MD CHEMISTRY ORDERABLES Performing Organization Address City/[facility]/[place] [address] Phosphorus (02/09/2022 5:35 PM EDT) P athologist Signature Phosphorus 3.2 2.5 - 4.5 [facility] mg/dL [facility] LABORATORY Specimen Anatomical Collection Method Collection Time Receive d Time (Source) Location / / Volume Laterality Blood 02/09/2022 5:35 PM 5:44 EDT PM EDT Resulting Agency Comment Spec In Lab Parrish Betancourt MD CHEMISTRY ORDERABLES Performing Organization Address City/[facility]/[place] [address] (ABNORMAL) Electrolytes panel (02/09/2022 5:35 PM EDT) P athologist Signature Sodium 132 (L) 135 - 145 [facility] mmol/L [facility] LABORATORY Potassium 4.3 3.5 - 5.0 [facility] LABORATORY Comment: Please note: ??Patients with WBC >100,00 0 may have falsely elevated Potassium levels. ??For accurate Potassium quantif ication in these patients send serum separator tube (gold top) for subsequent determinations. ??Contact the Clinical Chemistry Laboratory if there are any qu estions. Chloride 100 98 - 107 mmol/L [facility] LABORATORY CO2 21 (L) 22 - 31 mmol/L [facility] LABORATORY Anion Gap 11 5 - 15 mmol/L [facility] LABORATORY Specimen Anatomical Collection Method Collection Time Receive d Time (Source) Location / / Volume Laterality Blood 02/09/2022 5:35 PM 2 5:44 EDT PM EDT Resulting Agency Comment Spec In Lab Parrish Betancourt MD CHEMISTRY ORDERABLES Performing Organization Address City/[facility]/[place] [address] (ABNORMAL) Sodium (02/09/2022 5:35 PM EDT) athologist Signature Sodium 132 (L) 135 - 145 [facility] mmol/L [facility] LABORATORY Specimen Anatomical Collection Method Collection Time Receive d Time (Source) Location / / Volume Laterality Blood 02/09/2022 5:35 PM 2 5:44 EDT PM EDT Resulting Agency Comment Spec In Lab Parrish Betancourt MD CHEMISTRY ORDERABLES Performing Organization Address City/[facility] [place] [address] Anaerobic Culture (02/09/2022 4:26 PM EDT) Patholo gist Method Time Signature Anaerobic No anaerobic [facility] Culture organisms [facility] LABORATORY Specimen Anatomical Collection Method Collection Time Receive d Time (Source) Location / / Volume Laterality Thigh 02/09/2022 4:26 PM 2 5:23 EDT PM EDT Comment: Left thigh Resulting Agency Comment Spec In Lab Jeanette Chatterjee MD MICROBIOLOGY - GENERAL ORDER JT Performing Organization Address City/State/ZIP Code Phon e Number [address] (ABNORMAL) Tissue culture (02/09/2022 4:26 PM EDT) Component Value Ref Test Analysis Performed At Patholo gist Range Method Time Signature Tissue Few Pseudomonas aeruginosa MAR Y Culture Few Serratia marcescens [facility] OCK Susceptibilities previously reported [facility] LABORATORY Gram Stain Many Neutrophils seen [facility] Moderate Gram Negative Rods seen HENDRUM Results called to and read back by Lilibeth Dial RN [facility] 02/09/22 18:20:09 HOSPITAL () LABORATORY Organism Pseudomonas [facility] aeruginosa () [facility] LABORATORY Organism Serratia marcescens [facility] () [facility] LABORATORY Organism Gram Negative Rods [facility] () [facility] LABORATORY Specimen Anatomical Collection Method Collection Time Receive d Time (Source) Location / / Volume Laterality Thigh 02/09/2022 4:26 PM 5:23 EDT PM EDT Comment: Left thigh Resulting Agency Comment Spec In Lab Jeanette Chatterjee MD MICROBIOLOGY - GENERAL ORDER JT Performing Organization Address City/[facility]/[place] [address] (ABNORMAL) Sodium (02/09/2022 12:29 PM EDT) P athologist Signature Sodium 132 (L) 135 - 145 [facility] mmol/L [facility] LABORATORY Specimen Anatomical Collection Method Collection Time Receive d Time (Source) Location / / Volume Laterality Blood 02/09/2022 12:29 02/09/2022 PM EDT 12:29 PM EDT Resulting Agency Comment Spec In Lab Parrish Betancourt MD CHEMISTRY ORDERABLES Performing Organization Address City/[facility]/[place] [address] (ABNORMAL) Blood Gas Arterial (NLH) (02/09/2022 12:20 PM EDT) Analysis Performed At Patho logist Time Signature pH Art 7.47 (H) 7.35 - [facility] 7.45 [facility] LABORATORY pCO2 Art 33 (L) 35 - 45 [facility] LABORATORY pO2 Art 105 (H) 85 - 104 [facility] LABORATORY HCO3 Art 23.6 20.0 - [facility] 26.0 [facility] mmol/L [facility] LABORATORY BE Art -0.1 -3.0 - 3.0 [facility] mmol/L [facility] LABORATORY Hgb Blood Gas 9.6 (L) 13.7 - [facility] 16.5 g/dL [facility] LABORATORY O2HB Art 97.2 (H) 94.0 - [facility] 97.0 % [facility] LABORATORY COHB Art 0.8 % [facility] LABORATORY Comment: Nonsmokers: ??0.5-1.5% COHB Smokers: ??Variable, but usually less th an 10% Toxic: 20 - 30% COHB Lethal: ??Greater than 60% COHB METHB Art 0.3 <=1.5 % [facility] LABORATORY Na Whole Blood 126 (L) 135 - 145 mmol/L [facility] LABORATORY K Whole Blood 4.2 3.5 - 5.0 mmol/L [facility] LABORATORY Comment: Please note: ??Patients with WBC >100,00 0 may have falsely elevated Potassium levels. ??Contact the Clinical Chemistry Laboratory if there are any questions. ICa Whole Blood 1.16 1.15 - 1.33 mmol/L [facility] LABORATORY Comment: Note: ??Total bilirubin higher than 20 m g/dL may lead to falsely low ionized calcium. CL Whole Blood 99 98 - 107 mmol/L [facility] LABORATORY Gluc Whole Bld 97 65 - 199 mg/dL [facility] LABORATORY Comment: Diabetes: >=200 mg/dL plus symp toms. Lactate WB 1.1 0.5 - 2.2 mmol/L [facility] LABORATORY FIO2 Art 21 % [facility] LABORATORY PF Ratio Art [address] [facility] LABORATORY Temp Art 36.6 Celsius [facility] LABORATORY Specimen Anatomical Collection Method Collection Time Receive d Time (Source) Location / / Volume Laterality Blood Arterial Draw / 02/09/2022 12:20 02/10/20 22 Unknown PM EDT 12:27 PM EDT Resulting Agency Comment Spec In Lab Kaitlyn Rock MD CHEMISTRY ORDERABLES Performing Organization Address City/[facility]/[place] [address] Phosphorus (02/09/2022 10:08 AM EDT) P athologist Signature Phosphorus 3.1 2.5 - 4.5 [facility] mg/dL [facility] LABORATORY Specimen Anatomical Collection Method Collection Time Receive d Time (Source) Location / / Volume Laterality Blood 02/09/2022 10:08 02/09/2022 AM EDT 10:34 AM EDT Resulting Agency Comment Spec In Lab Parrish Betancourt MD CHEMISTRY ORDERABLES Performing Organization Address City/[facility]/[place] [address] Phosphorus (02/09/2022 6:25 AM EDT) P athologist Signature Phosphorus 2.6 2.5 - 4.5 [facility] mg/dL [facility] LABORATORY Specimen Anatomical Collection Method Collection Time Receive d Time (Source) Location / / Volume Laterality Blood 02/09/2022 6:25 AM 2 6:48 EDT AM EDT Resulting Agency Comment Spec In Lab Parrish Betancourt MD CHEMISTRY ORDERABLES Performing Organization Address City/[facility]/[place] [address] (ABNORMAL) Sodium (02/09/2022 6:25 AM EDT) P athologist Signature Sodium 130 (L) 135 - 145 [facility] mmol/L [facility] LABORATORY Specimen Anatomical Collection Method Collection Time Receive d Time (Source) Location / / Volume Laterality Blood 02/09/2022 6:25 AM 2 6:48 EDT AM EDT Resulting Agency Comment Spec In Lab Parrish Betancourt MD CHEMISTRY ORDERABLES Performing Organization Address City/[facility]/ZIP [place] [address] Transfuse RBC (02/09/2022 5:45 AM EDT) Parrish Betancourt MD NURSING TREATMENT ORDERABLES - BLOOD ADMIN Transfuse RBC (02/09/2022 5:45 AM EDT) Parrish Betancourt MD NURSING TREATMENT ORDERABLES - BLOOD ADMIN Type and Screen Validity (02/09/2022 2:30 AM EDT) [facility] Method Time Signature T&S only valid [facility] at [facility] LABORATORY Comment: This Type and Screen result is only valid at the [facility] Specimen Anatomical Collection Method Collection Time Receive d Time (Source) Location / / Volume Laterality Blood 02/09/2022 2:30 AM 2 2:47 EDT AM EDT Resulting Agency Comment Spec In Lab Thomas Daniel MD BLOOD BANK ORDERABLES Performing Organization Address City/State/ZIP Code Phon e Number [address] ABORH Recheck Status (02/09/2022 2:30 AM EDT) [facility] Method Time Signature ABORH Type Completed [facility] LABORATORY Specimen Anatomical Collection Method Collection Time Receive d Time (Source) Location / / Volume Laterality Blood 02/09/2022 2:30 AM 2 2:47 EDT AM EDT Resulting Agency Comment Spec In Lab Thomas Daniel MD BLOOD BANK ORDERABLES Performing Organization Address City/State/[place] [address] Antibody screen (02/09/2022 2:30 AM EDT) [facility] Method Time Signature Ab Screen Negative [facility] LABORATORY Expires at 02/12/2022 [facility] MANDO [id number] on: [facility] LABORATORY Specimen Anatomical Collection Method Collection Time Receive d Time (Source) Location / / Volume Laterality Blood 02/09/2022 2:30 AM 2 2:47 EDT AM EDT Resulting Agency Comment Spec In Lab Thomas Daniel MD BLOOD BANK ORDERABLES Performing Organization Address City/State/[place] [address] ABO/Rh Typing (02/09/2022 2:30 AM EDT) P athologist Signature ABORh Type A Pos [facility] LABORATORY Specimen Anatomical Collection Method Collection Time Receive d Time (Source) Location / / Volume Laterality Blood 02/09/2022 2:30 AM 2 2:47 EDT AM EDT Resulting Agency Comment Spec In Lab Thomas Daniel MD BLOOD BANK ORDERABLES Performing Organization Address City/State/ZIP Code Phon e Number [address] Prepare RBC (02/09/2022 2:20 AM EDT) P athologist Signature Dispensed? Yes [facility] LABORATORY Specimen Anatomical Collection Method Collection Time Receive d Time (Source) Location / / Volume Laterality Blood 02/09/2022 2:20 AM 2 2:21 EDT AM EDT Parrish Betancourt MD BLOOD BANK ORDERABLES Performing Organization Address City/State/[place] [address] (ABNORMAL) BLOOD GAS 2 ARTERIAL (02/09/2022 1:02 AM EDT) Analysis Performed At Patho logist Time Signature pH Art 7.49 (H) 7.35 - [facility] 7.45 [facility] LABORATORY pCO2 Art 30 (L) 35 - 45 [facility] mmHg [facility] LABORATORY pO2 Art 92 85 - 104 [facility] LABORATORY HCO3 Art 22.5 20.0 - [facility] 26.0 [facility] mmol/L [facility] LABORATORY BE Art -0.9 -3.0 - 3.0 [facility] mmol/L [facility] LABORATORY Hgb Blood Gas 8.1 (L) 13.7 - [facility] 16.5 g/dL [facility] LABORATORY O2HB Art 95.1 94.0 - [facility] 97.0 % [facility] LABORATORY COHB Art 0.3 % [facility] LABORATORY Comment: Nonsmokers: 0.5-1.5% COHB Smokers: Variable, but usually less than 10% Toxic: 20-30% COHB Lethal: Greater than 60% COHB METHB Art 1.0 <=1.5 % [facility] LABORATORY Na Whole Blood 122 (L) 135 - 145 mmol/L [facility] LABORATORY K Whole Blood 3.9 3.5 - 5.0 mmol/L [facility] LABORATORY Comment: Please note: Patients with WBC >100,000 may have falsely elevated Potassium levels. Contact the Clinical Chemistry L aboratory if there are any questions. ICa Whole Blood 1.18 1.15 - 1.33 mmol/L [facility] LABORATORY Comment: Note: ??Total bilirubin higher than 20 m g/dL may lead to falsely low ionized calcium. CL Whole Blood 98 98 - 107 mmol/L [facility] LABORATORY Gluc Whole Bld 125 65 - 199 mg/dL [facility] LABORATORY Comment: Diabetes: >=200 mg/dL plus symp toms. Lactate WB 2.2 0.5 - 2.2 mmol/L [facility] LABORATORY Specimen Anatomical Collection Method Collection Time Receive d Time (Source) Location / / Volume Laterality Blood 02/09/2022 1:02 AM 1:02 EDT AM EDT Parrish Betancourt MD CHEMISTRY ORDERABLES Performing Organization Address City/State/[place] [address] Scan, Peripheral Blood (02/09/2022 12:55 AM EDT) [facility] gist Method Time Signature Plat Estimate Decreased [facility] LABORATORY RBC Morphology Abnormal [facility] LABORATORY Polychromasia Present >5/HPF [facility] LABORATORY Ovalocytes 1-5 /HPF [facility] LABORATORY Glyndon Cells 1-5 /HPF [facility] LABORATORY Stippled RBCs Present >1/HPF [facility] LABORATORY Pappenheimer Bdy Present >1/HPF [facility] LABORATORY Dohle Bodies Present [facility] LABORATORY Giant Platelets Less than 1 /HPF [facility] LABORATORY Specimen Anatomical Collection Method Collection Time Receive d Time (Source) Location / / Volume Laterality Blood 02/09/2022 12:55 02/09/2022 1:07 AM EDT AM EDT Resulting Agency Comment Spec In Lab Kaitlyn Rock MD HEMATOLOGY ORDERABLES Performing Organization Address City/State/[place] [address] (ABNORMAL) Differential, Automated (02/09/2022 12:55 AM EDT) [facility] gist Method Time Signature Neutrophils % 57.4 % [facility] LABORATORY Neutr Abs (ANC) 7.26 (H) 1.70 - [facility] 6.10 [facility] x10(3)/[facility] LABORATORY Lymphocytes % 10.1 % [facility] LABORATORY Lymphocytes Abs 1.3 0.9 - 3.2 [facility] x10(3)/[facility] LABORATORY Monocytes % 17.7 % [facility] LABORATORY Monocyte Abs 2.2 (H) 0.3 - 0.9 [facility] x10(3)/[facility] LABORATORY Eosinophils % 1.3 % [facility] LABORATORY Eosinophils Abs 0.2 0.0 - 0.4 [facility] x10(3)/[facility] LABORATORY Basophils % 0.4 % [facility] LABORATORY Basophils Abs 0.0 0.0 - 0.1 [facility] x10(3)/[facility] LABORATORY Immature Gran % 13.10 % [facility] LABORATORY Comment: Immature granulocytes(IG's)percentage an d absolute [...] Organization Address City/State/[place] [address] (ABNORMAL) Hemogram (02/09/2022 12:55 AM EDT) [facility] Method Time Signature WBC 12.6 (H) 4.0 - 9.5 [facility] x[facility](3[facility] LABORATORY RBC 2.46 (L) 4.58 - [facility] [place] 5.54 [facility] x10(6)/[facility] LABORATORY Hemoglobin 7.1 (L) 13.7 - [facility] 16.5 g/dL [facility] LABORATORY Hematocrit 20.7 (L) 40.5 - [facility] 48.5 % [facility] LABORATORY MCV 84.1 82.9 - [facility] 93.1 [facility] LABORATORY MCH 28.9 27.5 - [facility] 32.1 pg [facility] LABORATORY MCHC 34.3 32.0 - [facility] 35.7 g/dL [facility] LABORATORY Platelets 97 (L) 145 - 357 [facility] x[facility](3[facility] LABORATORY RDWSD 49.4 (H) 36.0 - [facility] M[facility] 45.0 [facility] LABORATORY RDWCV 17.8 (H) 11.4 - [facility] 13.8 % [facility] LABORATORY MPV 9.8 7.6 - 12.9 [facility] LABORATORY nRBC % Auto 0.2 % [facility] LABORATORY nRBC Abs Auto 0.020 (H) 0.000 - [facility] MANDO 0.000 [facility] x10(3)/[facility] LABORATORY Specimen Anatomical Collection Method Collection Time Receive d Time (Source) Location / / Volume Laterality Blood 02/09/2022 12:55 02/09/2022 1:07 AM EDT AM EDT Resulting Agency Comment Spec In Lab Kaitlyn Rock MD HEMATOLOGY ORDERABLES Performing Organization Address City/State/[place] [address] (ABNORMAL) Basic Metabolic Panel (non-fasting) (02/09/2022 12:55 AM EDT) P athologist Signature Glucose Lvl 128 65 - 199 [facility] mg/dL [facility] LABORATORY Comment: Diabetes: >=200 mg/dL plus symp toms BUN 26 (H) 10 - 20 mg/dL [facility] LABORATORY Creatinine 2.46 (H) 0.80 - 1.50 mg/dL [facility] LABORATORY Sodium 126 (L) 135 - 145 mmol/L [facility] LABORATORY Potassium 4.2 3.5 - 5.0 mmol/L [facility] LABORATORY Comment: Please note: ??Patients with WBC >100,00 0 may have falsely elevated Potassium levels. ??For accurate Potassium quantif ication in these patients send serum separator tube (gold top) for subsequent determinations. ??Contact the Clinical Chemistry Laboratory if there are any qu estions. Chloride 95 (L) 98 - 107 mmol/L [facility] LABORATORY CO2 22 22 - 31 mmol/L [facility] LABORATORY Anion Gap 9 5 - 15 mmol/L [facility] LABORATORY Calcium 7.7 (L) 8.5 - 10.5 mg/dL [facility] LABORATORY Estimated GFR 35 (L) >=60 mL/min/1.73 m?? [facility] LABORATORY Comment: This patient's estimated [...] Novak MD CHEMISTRY ORDERABLES Performing Organization Address City/[facility]/ZIP Code Phon e Number [address] (ABNORMAL) Phosphorus (02/09/2022 12:55 AM EDT) P athologist Signature Phosphorus 2.3 (L) 2.5 - 4.5 [facility] mg/dL [facility] Specimen Anatomical Collection Method Collection Time Receive d Time (Source) Location / / Volume Laterality Blood 02/09/2022 12:55 02/09/2022 1:07 AM EDT AM EDT Resulting Agency Comment Spec In Lab Gela Novak MD CHEMISTRY ORDERABLES Performing Organization Address City/[facility]/[place] [address] Magnesium (02/09/2022 12:55 AM EDT) P athologist Signature Magnesium 0.94 0.69 - 1.07 [facility] mmol/L [facility] Specimen Anatomical Collection Method Collection Time Receive d Time (Source) Location / / Volume Laterality Blood 02/09/2022 12:55 02/09/2022 1:07 AM EDT AM EDT Resulting Agency Comment Spec In Lab Gela Novak MD CHEMISTRY ORDERABLES Performing Organization Address City/[facility]/[place] [address] Scan, Peripheral Blood (02/08/2022 6:00 PM EDT) Patholo gist Method Time Signature Plat Estimate Decreased [facility] RBC Morphology Abnormal [facility] Macrocytes 1-5 /HPF [facility] Microcytes 1-5 /HPF [facility] Polychromasia Present >5/HPF [facility] Ovalocytes 1-5 /HPF [facility] Glyndon Cells 1-5 /HPF [facility] Stippled RBCs Present >1/HPF [facility] Pappenheimer Bdy Present >1/HPF [facility] Dohle Bodies Present [facility] Giant Platelets Less than 1 /HPF [facility] Specimen Anatomical Collection Method Collection Time Receive d Time (Source) Location / / Volume Laterality Blood 02/08/2022 6:00 PM 6:21 EDT PM EDT Resulting Agency Comment Spec In Lab Rogers Juan Xiomara AVENDAÑO HEMATOLOGY ORDERABLES Performing Organization Address City/State/[place] [address] (ABNORMAL) Differential, Automated (02/08/2022 6:00 PM EDT) [facility] Method Time Signature Neutrophils % 64.6 % [facility] Neutr Abs (ANC) 7.81 (H) 1.70 - [facility] 6.10 [facility] x10(3)/[facility] LABORATORY Lymphocytes % 7.2 % [facility] Lymphocytes Abs 0.9 0.9 - 3.2 [facility] x10(3)/[facility] LABORATORY Monocytes % 14.2 % [facility] Monocyte Abs 1.7 (H) 0.3 - 0.9 [facility] x10(3)/[facility] LABORATORY Eosinophils % 1.3 % [facility] Eosinophils Abs 0.2 0.0 - 0.4 [facility] x10(3)/[facility] LABORATORY Basophils % 0.5 % [facility] Basophils Abs 0.1 0.0 - 0.1 [facility] x10(3)/[facility] LABORATORY Immature Gran % 12.20 % [facility] Comment: Immature granulocytes(IG's)percentage an d absolute [...] / Volume Laterality Blood 02/08/2022 6:00 PM 2 6:21 EDT PM EDT Resulting Agency Comment Spec In Lab Rogers Solano ASSISTANT PROFESSOR OF SOCIOLOGY HEMATOLOGY ORDERABLES Performing Organization Address City/State/[place] [address] (ABNORMAL) Hemogram (02/08/2022 6:00 PM EDT) [facility] gist Method Time Signature WBC 12.1 (H) 4.0 - 9.5 [facility] x10(3)/[facility] LABORATORY RBC 2.57 (L) 4.58 - [facility] 5.54 [facility] x10(6)/[facility] LABORATORY Hemoglobin 7.5 (L) 13.7 - [facility] 16.5 g/dL [facility] Hematocrit 21.6 (L) 40.5 - [facility] 48.5 % [facility] MCV 84.0 82.9 - [facility] 93.1 [facility] LABORATORY MCH 29.2 27.5 - [facility] 32.1 pg [facility] MCHC 34.7 32.0 - [facility] 35.7 g/dL [facility] Platelets 80 (L) 145 - 357 [facility] x10(3)/[facility] LABORATORY RDWSD 48.9 (H) 36.0 - [facility] MANDO 45.0 [facility] LABORATORY RDWCV 17.9 (H) 11.4 - [facility] 13.8 % [facility] MPV 10.1 7.6 - 12.9 [facility] LABORATORY nRBC % Auto 0.2 % [facility] nRBC Abs Auto 0.020 (H) 0.000 - [facility] MAND[facility] 0.000 [facility] x10(3)/[facility] LABORATORY Specimen Anatomical Collection Method Collection Time Receive d Time (Source) Location / / Volume Laterality Blood 02/08/2022 6:00 PM 2 6:21 EDT PM EDT Resulting Agency Comment Spec In Lab Rogers Solano ASSISTANT PROFESSOR OF SOCIOLOGY HEMATOLOGY ORDERABLES Performing Organization Address City/State/[place] [address] (ABNORMAL) Blood Gas Arterial (NLH) (02/08/2022 6:00 PM EDT) Analysis Performed At Patho logist Time Signature pH Art 7.46 (H) 7.35 - [facility] 7.45 [facility] pCO2 Art 32 (L) 35 - 45 [facility] mmHg [facility] pO2 Art 89 85 - 104 [facility] LABORATORY HCO3 Art 22.4 20.0 - [facility] 26.0 [facility] mmol/L [facility] LABORAT[facility] BE Art -1.4 -3.0 - 3.0 [facility] mmol/L [facility] Hgb Blood Gas 8.0 (L) 13.7 - [facility] 16.5 g/dL [facility] O2HB Art 95.8 94.0 - [facility] 97.0 % [facility] COHB Art 0.8 % [facility] Comment: Nonsmokers: ??0.5-1.5% COHB Smokers: ??Variable, but usually less th an 10% Toxic: 20 - 30% COHB Lethal: ??Greater than 60% COHB METHB Art 0.0 <=1.5 % [facility] Na Whole Blood 124 (L) 135 - 145 mmol/L [facility] K Whole Blood 4.7 3.5 - 5.0 mmol/L [facility] Comment: Please note: ??Patients with WBC >100,00 0 may have falsely elevated Potassium levels. ??Contact the Clinical Chemistry Laboratory if there are any questions. ICa Whole Blood 1.21 1.15 - 1.33 mmol/L [facility] Comment: Note: ??Total bilirubin higher than 20 m g/dL may lead to falsely low ionized calcium. CL Whole Blood 99 98 - 107 mmol/L [facility] Gluc Whole Bld 84 65 - 199 mg/dL [facility] Comment: Diabetes: >=200 mg/dL plus symp toms. Lactate WB 1.2 0.5 - 2.2 mmol/L [facility] Specimen Anatomical Collection Method Collection Time Receive d Time (Source) Location / / Volume Laterality Blood Arterial Draw / 02/08/2022 6:00 PM 2021 6:18 Unknown EDT PM EDT Resulting Agency Comment Spec In Lab Kaitlyn Rock MD CHEMISTRY ORDERABLES Performing Organization Address City/[facility]/ZIP Code Phon e Number [address] (ABNORMAL) Sodium (02/08/2022 6:00 PM EDT) P athologist Signature Sodium 129 (L) 135 - 145 [facility] mmol/L [facility] Specimen Anatomical Collection Method Collection Time Receive d Time (Source) Location / / Volume Laterality Blood 02/08/2022 6:00 PM 2 6:21 EDT PM EDT Resulting Agency Comment Spec In Lab Parrish Betancourt MD CHEMISTRY ORDERABLES Performing Organization Address City/[facility]/ZIP Code Phon e Number [address] POCT Glucose (02/08/2022 5:56 PM EDT) P athologist Signature POC Glucose 92 65 - 199 [facility] mg/dL [facility] Comment: Supplemental ranges: <140 mg/dL before meals <180 mg/dL all other times of the day Specimen Anatomical Collection Method Collection Time Receive d Time (Source) Location / / Volume Laterality Blood 02/08/2022 5:56 PM 2 5:56 EDT PM EDT Parrish Betancourt MD POINT OF CARE TEST ORDERABLE S Performing Organization Address City/[facility]/ZIP Code Phon e Number [address] Anaerobic Culture (02/08/2022 4:13 PM EDT) Patholo gist Method Time Signature Anaerobic No anaerobic [facility] Culture organisms [facility] LABORATORY Specimen Anatomical Collection Method Collection Time Receive d Time (Source) Location / / Volume Laterality Deep Wound STRUCTURE OF LEFT 02/08/2022 4:13 PM 01/29 4:33 THIGH / Unknown EDT PM EDT Comment: Left thigh #2 Resulting Agency Comment Spec In Lab Jeanette Chatterjee MD MICROBIOLOGY - GENERAL ORDER JT Performing Organization Address City/State/ZIP [place] [address] (ABNORMAL) Abscess/Wound Aspirate Culture (02/08/2022 4:13 PM EDT) [facility] Method Time Signature Abscess/Wound Many Pseudomonas aeruginosa [facility] Aspirate Many Serratia marcescens [place] Culture () [facility] Gram Stain Many Neutrophils seen [facility] Many Gram Negative Rods seen [facility] LAB[facility]ATORY Organism Pseudomonas [facility] aeruginosa (A) [facility] LABORATORY Organism Serratia [facility] marcescens (A) [facility] Organism Gram Negative [facility] Rods (A) [facility] Specimen Anatomical Collection Method [...] - GENERAL ORDER JT Performing Organization Address City/[facility]/[place] [address] Anaerobic Culture (02/08/2022 4:13 PM EDT) [place] Method Time Signature Anaerobic No anaerobic [facility] Culture organisms [facility] LABORATORY Specimen Anatomical Collection Method Collection Time Receive d Time (Source) Location / / Volume Laterality Deep Wound STRUCTURE OF LEFT 02/08/2022 4:13 PM 01/29 4:32 THIGH / Unknown EDT PM EDT Comment: Left thigh #1 Resulting Agency Comment Spec In Lab Jeanette Chatterjee MD MICROBIOLOGY - GENERAL ORDER JT Performing Organization Address City/[facility]/[place] [address] (ABNORMAL) Abscess/Wound Aspirate Culture (02/08/2022 4:13 PM EDT) Component Value Ref Test Analysis Performed At [facility] Method Time Signature Abscess/Woun Many Pseudomonas aeruginosa [facility] d Aspirate Many Serratia marcescens [facility] Culture Susceptibilities previously reported [facility] LABORATORY Gram Stain Many Neutrophils seen [facility] Moderate Gram Negative Rods seen [facility] LABORATORY Organism Pseudomonas [facility] aeruginosa (A) [facility] Organism Serratia marcescens [facility] (A) [facility] Specimen Anatomical Collection Method Collection Time Receive d Time (Source) Location / / Volume Laterality Deep Wound STRUCTURE OF LEFT 02/08/2022 4:13 PM 01/29 4:32 THIGH / Unknown EDT PM EDT Comment: Left thigh #1 Resulting Agency Comment Spec In Lab Jeanette Chatterjee MD MICROBIOLOGY - GENERAL ORDER JT Performing Organization Address City/State/[place] [address] POCT Glucose (02/08/2022 12:09 PM EDT) athologist Signature POC Glucose 126 65 - 199 [facility] mg/dL [facility] Comment: Supplemental ranges: <140 mg/dL before meals <180 mg/dL all other times of the day Specimen Anatomical Collection Method Collection Time Receive d Time (Source) Location / / Volume Laterality Blood 02/08/2022 12:09 02/08/2022 PM EDT 12:09 PM EDT Parrish Betancourt MD POINT OF CARE TEST ORDERABLE S Performing Organization Address City/[facility]/ZIP Code Phon e Number [address] POCT Glucose (02/08/2022 12:09 PM EDT) P athologist Signature POC Glucose 100 65 - 199 [facility] mg/dL [facility] Comment: Supplemental ranges: <140 mg/dL before meals <180 mg/dL all other times of the day Specimen Anatomical Collection Method Collection Time Receive d Time (Source) Location / / Volume Laterality Blood 02/08/2022 12:09 02/08/2022 PM EDT 12:09 PM EDT Parrish Betancourt MD POINT OF CARE TEST ORDERABLE S Performing Organization Address City/[facility]/[place] [address] (ABNORMAL) Blood Gas Arterial ([facility]) (02/08/2022 12:00 PM EDT) Analysis Performed At Patho logist Time Signature pH Art 7.47 (H) 7.35 - [facility] 7.45 [facility] pCO2 Art 32 (L) 35 - 45 [facility] LABORATORY pO2 Art 129 (H) 85 - 104 [facility] LABORATORY HCO3 Art 22.9 20.0 - [facility] 26.0 [facility] mmol/L [facility] LABORATORY BE Art -0.7 -3.0 - 3.0 [facility] mmol/L [facility] Hgb Blood Gas 8.1 (L) 13.7 - [facility] 16.5 g/dL [facility] O2HB Art 97.5 (H) 94.0 - [facility] 97.0 % [facility] COHB Art 0.9 % [facility] Comment: Nonsmokers: ??0.5-1.5% COHB Smokers: ??Variable, but usually less th an 10% Toxic: 20 - 30% COHB Lethal: ??Greater than 60% COHB METHB Art 0.0 <=1.5 % [facility] Na Whole Blood 123 (L) 135 - 145 mmol/L [facility] K Whole Blood 4.7 3.5 - 5.0 mmol/L [facility] Comment: Please note: ??Patients with WBC >100,00 0 may have falsely elevated Potassium levels. ??Contact the Clinical Chemistry Laboratory if there are any questions. ICa Whole Blood 1.26 1.15 - 1.33 mmol/L [facility] Comment: Note: ??Total bilirubin higher than 20 m g/dL may lead to falsely low ionized calcium. CL Whole Blood 98 98 - 107 mmol/L [facility] Gluc Whole Bld 92 65 - 199 mg/dL [facility] Comment: Diabetes: >=200 mg/dL plus symp toms. Lactate WB 0.9 0.5 - 2.2 mmol/L [facility] Specimen Anatomical Collection Method Collection Time Receive d Time (Source) Location / / Volume Laterality Blood Arterial Draw / 02/08/2022 12:00 02/09/20 22 Unknown PM EDT 12:21 PM EDT Resulting Agency Comment Spec In Lab Angelina Reynoso MD CHEMISTRY ORDERABLES Performing Organization Address City/State/ZIP Code [place] [address] (ABNORMAL) Sodium (02/08/2022 12:00 PM EDT) P athologist Signature Sodium 127 (L) 135 - 145 [facility] mmol/L [facility] Specimen Anatomical Collection Method Collection Time Receive d Time (Source) Location / / Volume Laterality Blood 02/08/2022 12:00 02/08/2022 PM EDT 12:23 PM EDT Resulting Agency Comment Spec In Lab Parrish Betancourt MD CHEMISTRY ORDERABLES Performing Organization Address City/[facility]/ZIP [facility] [place] [address] (ABNORMAL) Calcium Ionized Whole Blood, HONORIO (02/08/2022 11:00 AM EDT) Analysis Performed At Patho logist Time Signature pH Honorio 7.46 (H) 7.32 - [facility] 7.42 [facility] ICa Whole 1.26 1.15 - [facility] Blood 1.33 [facility] mmol/[facility] LAB[facility] Comment: Note: ??Total bilirubin higher than 20 m g/dL may lead to falsely low ionized calcium. Specimen Anatomical Collection Method Collection Time Receive d Time (Source) Location / / Volume Laterality Blood ARTERIAL LINE / 02/08/2022 11:00 02/09/20 22 Unknown AM EDT 11:09 AM EDT Resulting Agency Comment Spec In Lab Parrish Betancourt MD CHEMISTRY ORDERABLES Performing Organization Address City/[facility]/[place] [address] POCT Glucose (02/08/2022 9:56 AM EDT) P athologist Signature POC Glucose 96 65 - 199 [facility] mg/dL [facility] Comment: Supplemental ranges: <140 mg/dL before meals <180 mg/dL all other times of the day Specimen Anatomical Collection Method Collection Time Receive d Time (Source) Location / / Volume Laterality Blood 02/08/2022 9:56 AM 9:56 EDT AM EDT Parrish Betancourt MD POINT OF CARE TEST ORDERABLE S Performing Organization Address City/State/[place] [address] (ABNORMAL) BLOOD GAS 2 ARTERIAL (02/08/2022 8:15 AM EDT) P athologist Signature pH Art 7.44 7.35 - [facility] 7.45 [facility] pCO2 Art 36 35 - 45 [facility] mmHg [facility] pO2 Art 108 (H) 85 - 104 [facility] mmHg [facility] HCO3 Art 23.8 20.0 - [facility] 26.0 [facility] mmol/L [facility] LAB[facility] BE Art -0.3 -3.0 - 3.0 [facility] mmol/L [facility] Hgb Blood Gas 7.8 (L) 13.7 - [facility] 16.5 g/dL [facility] O2HB Art 95.7 94.0 - [facility] 97.0 % [facility] COHB Art 0.1 % [facility] Comment: Nonsmokers: 0.5-1.5% COHB Smokers: Variable, but usually less than 10% Toxic: 20-30% COHB Lethal: Greater than 60% COHB METHB Art 1.3 <=1.5 % [facility] Na Whole Blood 122 (L) 135 - 145 mmol/L [facility] K Whole Blood 4.6 3.5 - 5.0 mmol/L [facility] Comment: Please note: Patients with WBC >100,000 may have falsely elevated Potassium levels. Contact the Clinical Chemistry L aboratory if there are any questions. ICa Whole Blood 1.27 1.15 - 1.33 mmol/L [facility] Comment: Note: ??Total bilirubin higher than 20 m g/dL may lead to falsely low ionized calcium. CL Whole Blood 98 98 - 107 mmol/L [facility] Gluc Whole Bld 92 65 - 199 mg/dL [facility] Comment: Diabetes: >=200 mg/dL plus symp toms. Lactate WB 0.9 0.5 - 2.2 mmol/L [facility] FIO2 Art 21 % [facility] PF Ratio Art [address] [facility] LAB[facility]ORY Specimen Anatomical Collection Method Collection Time Receive d Time (Source) Location / / Volume Laterality Blood 02/08/2022 8:15 AM 2 8:15 EDT AM EDT Jayme Armstrong MD CHEMISTRY ORDERABLES Performing Organization Address City/[facility]/ZIP Code Phon e Number [address] POCT Glucose (02/08/2022 7:42 AM EDT) athologist Signature POC Glucose 98 65 - 199 [facility] mg/dL [facility] Comment: Supplemental ranges: <140 mg/dL before meals <180 mg/dL all other times of the day Specimen Anatomical Collection Method Collection Time Receive d Time (Source) Location / / Volume Laterality Blood 02/08/2022 7:42 AM 2 7:42 EDT AM EDT Jayme Armstrong MD POINT OF CARE TEST ORDERABLE S Performing Organization Address City/State/ZIP Code Phon e Number [address] Phosphorus (02/08/2022 5:57 AM EDT) athologist Signature Phosphorus 3.9 2.5 - 4.5 [facility] mg/dL [facility] Specimen Anatomical Collection Method Collection Time Receive d Time (Source) Location / / Volume Laterality Blood 02/08/2022 5:57 AM 2 5:58 EDT AM EDT Resulting Agency Comment Spec In Lab Gela Novak MD CHEMISTRY ORDERABLES Performing Organization Address City/State/ZIP Code Phon e Number [address] Magnesium (02/08/2022 5:57 AM EDT) athologist Signature Magnesium 0.91 0.69 - 1.07 [facility] mmol/L [facility] Specimen Anatomical Collection Method Collection Time Receive d Time (Source) Location / / Volume Laterality Blood 02/08/2022 5:57 AM 2 5:58 EDT AM EDT Resulting Agency Comment Spec In Lab Gela Novak MD CHEMISTRY ORDERABLES Performing Organization Address City/State/[place] [address] (ABNORMAL) Basic Metabolic Panel (non-fasting) (02/08/2022 5:57 AM EDT) P athologist Signature Glucose Lvl 92 65 - 199 [facility] mg/dL [facility] Comment: Diabetes: >=200 mg/dL plus symp toms BUN 29 (H) 10 - 20 mg/dL [facility] Creatinine 2.94 (H) 0.80 - 1.50 mg/dL [facility] Comment: result rechecked-red Sodium 126 (L) 135 - 145 mmol/L [facility] Potassium 4.9 3.5 - 5.0 mmol/L [facility] Comment: Please note: ??Patients with WBC >100,00 0 may have falsely elevated Potassium levels. ??For accurate Potassium quantif ication in these patients send serum separator tube (gold top) for subsequent determinations. ??Contact the Clinical Chemistry Laboratory if there are any qu estions. Chloride 97 (L) 98 - 107 mmol/L [facility] CO2 22 22 - 31 mmol/L [facility] Anion Gap 7 5 - 15 mmol/L [facility] Calcium 8.5 8.5 - 10.5 mg/dL [facility] Comment: result rechecked-red Estimated GFR 28 (L) >=60 mL/min/1.73 m?? [facility] Comment: This patient's estimated [...] Resulting Agency Comment Spec In Lab Rogers Juan Xiomara AVENDAÑO CHEMISTRY ORDERABLES Performing Organization Address City/State/[place] [address] (ABNORMAL) BLOOD GAS 2 ARTERIAL (02/08/2022 5:54 AM EDT) Analysis Performed At Patho logist Time Signature pH Art 7.47 (H) 7.35 - [facility] 7.45 [facility] pCO2 Art 30 (L) 35 - 45 [facility] mmHg [facility] pO2 Art 87 85 - 104 [facility] LABORATORY HCO3 Art 21.5 20.0 - [facility] 26.0 [facility] mmol/L [facility] BE Art -2.1 -3.0 - 3.0 [facility] mmol/L [facility] Hgb Blood Gas 7.7 (L) 13.7 - [facility] 16.5 g/dL [facility] O2HB Art 94.2 94.0 - [facility] 97.0 % [facility] COHB Art 0.3 % [facility] Comment: Nonsmokers: 0.5-1.5% COHB Smokers: Variable, but usually less than 10% Toxic: 20-30% COHB Lethal: Greater than 60% COHB METHB Art 1.0 <=1.5 % [facility] Na Whole Blood 122 (L) 135 - 145 mmol/L [facility] K Whole Blood 4.8 3.5 - 5.0 mmol/L [facility] Comment: Please note: Patients with WBC >100,000 may have falsely elevated Potassium levels. Contact the Clinical Chemistry L aboratory if there are any questions. ICa Whole Blood 1.28 1.15 - 1.33 mmol/L [facility] Comment: Note: ??Total bilirubin higher than 20 m g/dL may lead to falsely low ionized calcium. CL Whole Blood 98 98 - 107 mmol/L [facility] Gluc Whole Bld 87 65 - 199 mg/dL [facility] Comment: Diabetes: >=200 mg/dL plus symp toms. Lactate WB 1.1 0.5 - 2.2 mmol/L [facility] FIO2 Art 21 % [facility] PF Ratio Art [address] [facility] Temp Art 37.2 Celsius [facility] Specimen Anatomical Collection Method Collection Time Receive d Time (Source) Location / / Volume Laterality Blood 02/08/2022 5:54 AM 2 5:54 EDT AM EDT Jayme Armstrong MD CHEMISTRY ORDERABLES Performing Organization Address City/[facility]/[place] [address] Scan, Peripheral Blood (02/08/2022 1:00 AM EDT) [place] Method Time Signature Plat Estimate Decreased [facility] RBC Morphology Abnormal [facility] Polychromasia Present >5/HPF [facility] Ovalocytes 1-5 /HPF [facility] [place]ndon Cells 1-5 /HPF [facility] Toxic Granulation Present [facility] Specimen Anatomical Collection Method Collection Time Receive d Time (Source) Location / / Volume Laterality Blood 02/08/2022 1:00 AM 2 1:20 EDT AM EDT Resulting Agency Comment Spec In Lab Danielle Ramirez MD HEMATOLOGY ORDERABLES Performing Organization Address City/State/ZIP Code Phon e Number [address] (ABNORMAL) Differential, Automated (02/08/2022 1:00 AM EDT) [place] Method Time Signature Neutrophils % 67.2 % [facility] Neutr Abs (ANC) 12.53 (H) 1.70 - [facility] 6.10 [facility] x10(3)/[facility] L LABORATORY Lymphocytes % 8.1 % [facility] Lymphocytes Abs 1.5 0.9 - 3.2 [facility] x10(3)/[facility] LABORATORY Monocytes % 13.3 % [facility] Monocyte Abs 2.5 (H) 0.3 - 0.9 [facility] x10(3)/[facility] LABORATORY Eosinophils % 1.2 % [facility] Eosinophils Abs 0.2 0.0 - 0.4 [facility] x10(3)/[facility] LABORATORY Basophils % 0.5 % [facility] Basophils Abs 0.1 0.0 - 0.1 [facility] x10(3)/[facility] LABORATORY Immature Gran % 9.70 % [facility] Comment: Immature granulocytes(IG's)percentage an d absolute [...] Organization Address City/State/[place] [address] (ABNORMAL) Hemogram (02/08/2022 1:00 AM EDT) [facility] Method Time Signature WBC 18.6 (H) 4.0 - 9.5 [facility] x10(3)/[facility] LABORATORY RBC 2.51 (L) 4.58 - [facility] 5.54 [facility] x10(6)/[facility] LABORATORY Hemoglobin 7.3 (L) 13.7 - [facility] [place] 16.5 g/dL [facility] Hematocrit 20.7 (L) 40.5 - [place] [place] 48.5 % [facility] MCV 82.5 (L) 82.9 - [facility] [place] 93.1 [facility] LABORATORY MCH 29.1 27.5 - [facility] [place] 32.1 pg [facility] MCHC 35.3 32.0 - [facility] [place] 35.7 g/dL [facility] Platelets 97 (L) 145 - 357 [facility] [place] x10(3)/[facility] LABORATORY RDWSD 42.7 36.0 - [facility] [place] 45.0 [facility] LABORATORY RDWCV 15.6 (H) 11.4 - [facility] [place] 13.8 % [facility] MPV 9.7 7.6 - 12.9 [facility] LAB[facility]ATORY nRBC % Auto 0.5 % [facility] nRBC Abs Auto 0.100 (H) 0.000 - [place] [place] 0.000 [facility] x10(3)/[facility] LABORATORY Specimen Anatomical Collection Method Collection Time Receive d Time (Source) Location / / Volume Laterality Blood 02/08/2022 1:00 AM 2 1:20 EDT AM EDT Resulting Agency Comment Spec In Lab Danielle Ramirez MD HEMATOLOGY ORDERABLES Performing Organization Address City/[facility]/[place] [address] (ABNORMAL) Fibrinogen (02/08/2022 1:00 AM EDT) P athologist Signature Fibrinogen 423 (H) 200 - 393 [facility] [place] mg/dL [facility] Comment: A fibrinogen level >100 mg/dL is adequat e for hemostasis in most patients without underlying bleeding disorders. Specimen Anatomical Collection Method Collection Time Receive d Time (Source) Location / / Volume Laterality Blood 02/08/2022 1:00 AM 2 1:20 EDT AM EDT Resulting Agency Comment Spec In Lab Jayme Armstrong MD HEMATOLOGY ORDERABLES Performing Organization Address City/State/ZIP Code [place] [address] APTT (02/08/2022 1:00 AM EDT) P athologist Signature PTT 25 25 - 37 sec [facility] Comment: The PTT is NOT appropriate [...] Armstrong MD HEMATOLOGY ORDERABLES Performing Organization Address City/[facility]/[place] [address] Prothrombin Time (02/08/2022 1:00 AM EDT) P athologist Signature PT 12.2 9.4 - 12.5 [facility] LABORATORY INR 1.1 [facility] Comment: An INR <2.0 indicates adequate [...] Armstrong MD HEMATOLOGY ORDERABLES Performing Organization Address [facility]/[place] [address] (ABNORMAL) Blood Gas Arterial (NLH) (02/08/2022 12:01 AM EDT) Analysis Performed At Patho logist Time Signature pH Art 7.47 (H) 7.35 - [facility] 7.45 [facility] pCO2 Art 32 (L) 35 - 45 [facility] mmHg [facility] pO2 Art 87 85 - 104 [facility] mmHg [facility] HCO3 Art 22.6 20.0 - [facility] 26.0 [facility] mmol/[facility] LAB[facility] BE Art -1.1 -3.0 - 3.0 [facility] mmol/L [facility] Hgb Blood Gas 7.7 (L) 13.7 - [facility] 16.5 g/dL [facility] O2HB Art 95.4 94.0 - [facility] 97.0 % [facility] COHB Art 1.0 % [facility] Comment: Nonsmokers: ??0.5-1.5% COHB Smokers: ??Variable, but usually less th an 10% Toxic: 20 - 30% COHB Lethal: ??Greater than 60% COHB METHB Art 0.1 <=1.5 % [facility] Na Whole Blood 122 (L) 135 - 145 mmol/L [facility] K Whole Blood 4.6 3.5 - 5.0 mmol/L [facility] Comment: Please note: ??Patients with WBC >100,00 0 may have falsely elevated Potassium levels. ??Contact the Clinical Chemistry Laboratory if there are any questions. ICa Whole Blood 1.24 1.15 - 1.33 mmol/L [facility] Comment: Note: ??Total bilirubin higher than 20 m g/dL may lead to falsely low ionized calcium. CL Whole Blood 99 98 - 107 mmol/L [facility] Gluc Whole Bld 89 65 - 199 mg/dL [facility] Comment: Diabetes: >=200 mg/dL plus symp toms. Lactate WB 1.1 0.5 - 2.2 mmol/L [facility] Specimen Anatomical Collection Method Collection Time Receive d Time (Source) Location / / Volume Laterality Blood Arterial Draw / 02/08/2022 12:01 02/09/20 22 Unknown AM EDT 12:16 AM EDT Resulting Agency Comment Spec In Lab Angelina Reynoso MD CHEMISTRY ORDERABLES Performing Organization Address City/State/[place] [address] (ABNORMAL) Sodium (02/08/2022 12:01 AM EDT) P athologist Signature Sodium 125 (L) 135 - 145 [facility] mmol/L [facility] Specimen Anatomical Collection Method Collection Time Receive d Time (Source) Location / / Volume Laterality Blood 02/08/2022 12:01 02/08/2022 AM EDT 12:15 AM EDT Resulting Agency Comment Spec In Lab Parrish Betancourt MD CHEMISTRY ORDERABLES Performing Organization Address City/State/ZIP Code Phon e Number [address] Prepare RBC (02/07/2022 7:40 PM EDT) P athologist Signature Dispensed? Yes [facility] Specimen Anatomical Collection Method Collection Time Receive d Time (Source) Location / / Volume Laterality Blood 02/07/2022 7:40 PM 7:39 EDT PM EDT Jayme Armstrong MD BLOOD BANK ORDERABLES Performing Organization Address City/State/[place] [address] (ABNORMAL) BLOOD GAS 2 ARTERIAL (02/07/2022 6:08 PM EDT) Analysis Performed At Patho logist Time Signature pH Art 7.50 (H) 7.35 - [facility] 7.45 [facility] pCO2 Art 27 (L) 35 - 45 [facility] mmHg [facility] pO2 Art 81 (L) 85 - 104 [facility] mmHg [facility] HCO3 Art 20.8 20.0 - [facility] 26.0 [facility] mmol/L [facility] BE Art -2.4 -3.0 - 3.0 [facility] mmol/L [facility] Hgb Blood Gas 8.5 (L) 13.7 - [facility] 16.5 g/dL [facility] O2HB Art 93.9 (L) 94.0 - [facility] 97.0 % [facility] COHB Art 0.3 % [facility] Comment: Nonsmokers: 0.5-1.5% COHB Smokers: Variable, but usually less than 10% Toxic: 20-30% COHB Lethal: Greater than 60% COHB METHB Art 1.0 <=1.5 % [facility] Na Whole Blood 119 (Critical) 135 - 145 mmol/L [facility] Comment: Noted by instrument maintenance supervisor. K Whole Blood 5.1 (H) 3.5 - 5.0 mmol/L [facility] Comment: Please note: Patients with WBC >100,000 may have falsely elevated Potassium levels. Contact the Clinical Chemistry L aboratory if there are any questions. ICa Whole Blood 1.18 1.15 - 1.33 mmol/L [facility] Comment: Note: ??Total bilirubin higher than 20 m g/dL may lead to falsely low ionized calcium. CL Whole Blood 96 (L) 98 - 107 mmol/L [facility] Gluc Whole Bld 100 65 - 199 mg/dL [facility] Comment: Diabetes: >=200 mg/dL plus symp toms. Lactate WB 1.4 0.5 - 2.2 mmol/L [facility] Flow Art 21.0 LPM [facility] Specimen Anatomical Collection Method Collection Time Receive d Time (Source) Location / / Volume Laterality Blood 02/07/2022 6:08 PM 6:08 EDT PM EDT Jayme Armstrong MD CHEMISTRY ORDERABLES Performing Organization Address City/State/[place] [address] Scan, Peripheral Blood (02/07/2022 6:05 PM EDT) [facility] gist Method Time Signature Plat Estimate Decreased [facility] RBC Morphology Abnormal [facility] Polychromasia Present >5/HPF [facility] Angel Cells 1-5 /HPF [facility] Stippled RBCs Present >1/HPF [facility] Specimen Anatomical Collection Method Collection Time Receive d Time (Source) Location / / Volume Laterality Blood 02/07/2022 6:05 PM 2 6:10 EDT PM EDT Resulting Agency Comment Spec In Lab Rogers Solano KATERYNA HEMATOLOGY ORDERABLES Performing Organization Address City/State/[place] [address] (ABNORMAL) Differential, Automated (02/07/2022 6:05 PM EDT) [facility] Method Time Signature Neutrophils % 67.7 % [facility] Neutr Abs (ANC) 12.21 (H) 1.70 - [facility] 6.10 [facility] x10(3)/[facility] LABORATORY Lymphocytes % 7.1 % [facility] Lymphocytes Abs 1.3 0.9 - 3.2 [facility] x10(3)/[facility] LABORATORY Monocytes % 14.1 % [facility] Monocyte Abs 2.6 (H) 0.3 - 0.9 [facility] x10(3)/[facility] LABORATORY Eosinophils % 0.8 % [facility] Eosinophils Abs 0.1 0.0 - 0.4 [facility] x10(3)/[facility] LABORATORY Basophils % 0.4 % [facility] Basophils Abs 0.1 0.0 - 0.1 [facility] x10(3)/[facility] LABORATORY Immature Gran % 9.90 % [facility] Comment: Immature granulocytes(IG's)percentage an d absolute [...] Organization Address City/State/[place] [address] (ABNORMAL) Hemogram (02/07/2022 6:05 PM EDT) [facility] Method Time Signature WBC 18.0 (H) 4.0 - 9.5 [facility] x[facility](3[facility] LABORATORY RBC 2.31 (L) 4.58 - [facility] [place] 5.54 [facility] x10(6)/[facility] LABORATORY Hemoglobin 6.8 (L) 13.7 - [facility] 16.5 g/dL [facility] Hematocrit 19.3 (L) 40.5 - [facility] 48.5 % [facility] MCV 83.5 82.9 - [facility] 93.1 [facility] LABORATORY MCH 29.4 27.5 - [facility] 32.1 pg [facility] MCHC 35.2 32.0 - [facility] 35.7 g/dL [facility] Platelets 85 (L) 145 - 357 [facility] x10(3)/[facility] LABORATORY RDWSD 42.5 36.0 - [facility] 45.0 [facility] LABORATORY RDWCV 14.7 (H) 11.4 - [facility] 13.8 % [facility] LABORATORY MPV 9.9 7.6 - 12.9 [facility] LABORATORY nRBC % Auto 0.8 % [facility] nRBC Abs Auto 0.150 (H) 0.000 - [facility] MANDO 0.000 [facility] x10(3)/[facility] LABORATORY Specimen Anatomical Collection Method Collection Time Receive d Time (Source) Location / / Volume Laterality Blood 02/07/2022 6:05 PM 6:10 EDT PM EDT Resulting Agency Comment Spec In Lab Rogers Solano APRN HEMATOLOGY ORDERABLES Performing Organization Address City/State/[place] [address] (ABNORMAL) Sodium (02/07/2022 6:05 PM EDT) P athologist Signature Sodium 125 (L) 135 - 145 [facility] mmol/L [facility] Specimen Anatomical Collection Method Collection Time Receive d Time (Source) Location / / Volume Laterality Blood 02/07/2022 6:05 PM 2 6:10 EDT PM EDT Resulting Agency Comment Spec In Lab Parrish Betancourt MD CHEMISTRY ORDERABLES Performing Organization Address City/[facility] Phon e Number [address] (ABNORMAL) Calcium Ionized Whole Blood, HONORIO (02/07/2022 4:30 PM EDT) Analysis Performed At Patho logist Time Signature pH Honorio 7.43 (H) 7.32 - [facility] 7.42 [facility] ICa Whole 1.15 1.15 - [facility] Blood 1.33 [facility] mmol/L [facility] Comment: Note: ??Total bilirubin higher than 20 m g/dL may lead to falsely low ionized calcium. Specimen Anatomical Collection Method Collection Time Receive d Time (Source) Location / / Volume Laterality Blood ARTERIAL LINE / 02/07/2022 4:30 PM 2021 4:38 Unknown EDT PM EDT Resulting Agency Comment Spec In Lab Parrish Betancourt MD CHEMISTRY ORDERABLES Performing Organization Address City/[facility] [place] [address] Transfuse RBC (02/07/2022 4:20 PM EDT) Rogers Solano APRN NURSING TREATMENT ORDERABLES - BLOOD ADMIN Transfuse RBC (02/07/2022 4:20 PM EDT) Rogers Solano APRN NURSING TREATMENT ORDERABLES - BLOOD ADMIN Prepare RBC (02/07/2022 1:30 PM EDT) P athologist Signature Dispensed? Yes [facility] Specimen Anatomical Collection Method Collection Time Receive d Time (Source) Location / / Volume Laterality Blood 02/07/2022 1:30 PM 2 1:29 EDT PM EDT Rogers E Solano ASSISTANT PROFESSOR OF SOCIOLOGY BLOOD BANK ORDERABLES Performing Organization Address City/State/ZIP [place] [address] XR Chest One View [...] who have questions please contact the health administrator health care facility that requested your imaging first. ? Narrative [...] ho have questions please contact the health administrator health care facility that requested your imaging first. Electronically signed by: Boubacar kim MD, [facility] ([phone]), at 02/07/2022 1:37 PM Jayme Armstrong MD IMG DX ORDERABLES (ABNORMAL) BLOOD GAS 2 ARTERIAL (02/07/2022 1:04 PM EDT) Analysis Performed At [facility] logis Time Signature pH Art 7.51 (H) 7.35 - [facility] 7.45 [facility] pCO2 Art 28 (L) 35 - 45 [facility] mmHg [facility] pO2 Art 78 (L) 85 - 104 [facility] mmHg [facility] HCO3 Art 22.0 20.0 - [facility] 26.0 [facility] mmol/L [facility] BE Art -1.0 -3.0 - 3.0 [facility] mmol/L [facility] Hgb Blood Gas 7.4 (L) 13.7 - [facility] 16.5 g/dL [facility] O2HB Art 93.3 (L) 94.0 - [facility] 97.0 % [facility] COHB Art 0.3 % [facility] Comment: Nonsmokers: 0.5-1.5% COHB Smokers: Variable, but usually less than 10% Toxic: 20-30% COHB Lethal: Greater than 60% COHB METHB Art 1.2 <=1.5 % [facility] Na Whole Blood 118 (Critical) 135 - 145 mmol/L [facility] Comment: Noted by instrument maintenance supervisor. K Whole Blood 5.8 (H) 3.5 - 5.0 mmol/L [facility] Comment: Please note: Patients with WBC >100,000 may have falsely elevated Potassium levels. Contact the Clinical Chemistry L aboratory if there are any questions. ICa Whole Blood 1.08 (L) 1.15 - 1.33 mmol/L [facility] Comment: Note: ??Total bilirubin higher than 20 m g/dL may lead to falsely low ionized calcium. CL Whole Blood 94 (L) 98 - 107 mmol/L [facility] Gluc Whole Bld 104 65 - 199 mg/dL [facility] Comment: Diabetes: >=200 mg/dL plus symp toms. Lactate WB 1.2 0.5 - 2.2 mmol/L [facility] FIO2 Art 21 % [facility] PF Ratio Art [address] [facility] Specimen Anatomical Collection Method Collection Time Receive d Time (Source) Location / / Volume Laterality Blood 02/07/2022 1:04 PM 2 1:04 EDT PM EDT Jayme Armstrong MD CHEMISTRY ORDERABLES Performing Organization Address City/[facility]/ZIP Code Phon e Number [address] (ABNORMAL) Phosphorus (02/07/2022 1:00 PM EDT) athologist Signature Phosphorus 5.0 (H) 2.5 - 4.5 [facility] mg/dL [facility] Specimen Anatomical Collection Method Collection Time Receive d Time (Source) Location / / Volume Laterality Blood Venous Draw / 02/07/2022 1:00 PM 02/08/20 22 1:15 Unknown EDT PM EDT Resulting Agency Comment Spec In Lab Angelina Reynoso MD CHEMISTRY ORDERABLES Performing Organization Address City/[facility]/ZIP Code Phon e Number [address] Magnesium (02/07/2022 1:00 PM EDT) P athologist Signature Magnesium 0.87 0.69 - 1.07 [facility] mmol/L [facility] Specimen Anatomical Collection Method Collection Time Receive d Time (Source) Location / / Volume Laterality Blood Venous Draw / 02/07/2022 1:00 PM 02/08/20 1:15 Unknown EDT PM EDT Resulting Agency Comment Spec In Lab Angelina Reynoso MD CHEMISTRY ORDERABLES Performing Organization Address City/State/[place] [address] (ABNORMAL) Differential, Automated (02/07/2022 1:00 PM EDT) Patholo gist Method Time Signature Neutrophils % 67.1 % [facility] Neutr Abs (ANC) 13.59 (H) 1.70 - [facility] 6.10 [facility] x10(3)/[facility] LABORATORY Lymphocytes % 6.8 % [facility] Lymphocytes Abs 1.4 0.9 - 3.2 [facility] x10(3)/[facility] LABORATORY Monocytes % 13.2 % [facility] Monocyte Abs 2.7 (H) 0.3 - 0.9 [facility] x10(3)/[facility] LABORATORY Eosinophils % 0.5 % [facility] Eosinophils Abs 0.1 0.0 - 0.4 [facility] x10(3)/[facility] LABORATORY Basophils % 0.5 % [facility] Basophils Abs 0.1 0.0 - 0.1 [facility] x10(3)/[facility] LABORATORY Immature Gran % 11.90 % [facility] Comment: Immature granulocytes(IG's)percentage an d absolute [...] Organization Address City/State/[place] [address] (ABNORMAL) Hemogram (02/07/2022 1:00 PM EDT) [facility] gist Method Time Signature WBC 20.2 (H) 4.0 - 9.5 [facility] x[facility](3[facility] LABORATORY RBC 2.25 (L) 4.58 - [facility] 5.54 [facility] x10(6)/[facility] LABORATORY Hemoglobin 6.6 (L) 13.7 - [facility] 16.5 g/dL [facility] LAB[facility]ORY Hematocrit 18.6 (L) 40.5 - [facility] 48.5 % [facility] LAB[facility] MCV 82.7 (L) 82.9 - [facility] 93.1 [facility] LABORATORY MCH 29.3 27.5 - [facility] 32.1 pg [facility] LAB[facility]ATORY MCHC 35.5 32.0 - [facility] 35.[facility] g/dL [facility] LAB[facility]ATORY Platelets 112 (L) 145 - 357 [facility] x10(3)/[facility] LABORATORY RDWSD 42.7 36.0 - [facility] 45.0 [facility] LABORATORY RDWCV 14.9 (H) 11.4 - [facility] AMNDO 13.8 % [facility] LABORATORY MPV 9.8 7.6 - 12.9 [facility] LABORATORY nRBC % Auto 0.9 % [facility]ORY nRBC Abs Auto 0.190 (H) 0.000 - [place] [facility] 0.000 [facility] x10(3)/[facility] LABORATORY Specimen Anatomical Collection Method Collection Time Receive d Time (Source) Location / / Volume Laterality Blood 02/07/2022 1:00 PM 2 1:09 EDT PM EDT Resulting Agency Comment Spec In Lab Batsheva Hill MD HEMATOLOGY ORDERABLES Performing Organization Address City/State/[place] [address] (ABNORMAL) Basic Metabolic Panel (non-fasting) (02/07/2022 1:00 PM EDT) P athologist Signature Glucose Lvl 105 65 - 199 [facility] mg/dL [facility] LABORATORY Comment: Diabetes: >=200 mg/dL plus symp toms BUN 41 (H) 10 - 20 mg/dL [facility] LABORATORY Creatinine 3.92 (H) 0.80 - 1.50 mg/dL [facility] LABORATORY Sodium 123 (L) 135 - 145 mmol/L [facility] LABORATORY Potassium 6.0 (H) 3.5 - 5.0 mmol/L [facility] LABORATORY Comment: Please note: ??Patients with WBC >100,00 0 may have falsely elevated Potassium levels. ??For accurate Potassium quantif ication in these patients send serum separator tube (gold top) for subsequent determinations. ??Contact the Clinical Chemistry Laboratory if there are any qu estions. Chloride 94 (L) 98 - 107 mmol/L [facility] LABORATORY CO2 21 (L) 22 - 31 mmol/L [facility] LABORATORY Anion Gap 8 5 - 15 mmol/L [facility] LABORATORY Calcium 7.4 (L) 8.5 - 10.5 mg/dL [facility] LABORATORY Estimated GFR 20 (L) >=60 mL/min/1.73 m?? [facility] LABORATORY Comment: This patient's estimated [...] Address City/State/ZIP [place] [address] CENTRAL LINE (02/07/2022 12:52 [...] at time of insertion: I CU 4 [facility] Rogers Solano APRN Rogers Solano APRN PROCEDURE/MINOR SURGICAL ORD ERABLES POCT Glucose (02/07/2022 8:22 AM EDT) P athologist Signature POC Glucose 130 65 - 199 [facility] mg/dL [facility] LABORATORY Comment: Supplemental ranges: <140 mg/dL before meals <180 mg/dL all other times of the day Specimen Anatomical Collection Method Collection Time Receive d Time (Source) Location / / Volume Laterality Blood 02/07/2022 8:22 AM 8:22 EDT AM EDT Jayme Armstrong MD POINT OF CARE TEST ORDERABLE S Performing Organization Address City/State/[place] [address] (ABNORMAL) BLOOD GAS 2 ARTERIAL (02/07/2022 8:16 AM EDT) Analysis Performed At Patho logist Time Signature pH Art 7.50 (H) 7.35 - [facility] 7.45 [facility] LABORATORY pCO2 Art 29 (L) 35 - 45 [facility] mmHg [facility] LABORATORY pO2 Art 76 (L) 85 - 104 [facility] LABORATORY HCO3 Art 21.8 20.0 - [facility] 26.0 [facility] mmol/L [facility] LABORATORY BE Art -1.4 -3.0 - 3.0 [facility] mmol/L [facility] LABORATORY Hgb Blood Gas 8.0 (L) 13.7 - [facility] 16.5 g/dL [facility] LABORATORY O2HB Art 92.9 (L) 94.0 - [facility] 97.0 % [facility] LABORATORY COHB Art 0.3 % [facility] LABORATORY Comment: Nonsmokers: 0.5-1.5% COHB Smokers: Variable, but usually less than 10% Toxic: 20-30% COHB Lethal: Greater than 60% COHB METHB Art 1.4 <=1.5 % [facility] LABORATORY Na Whole Blood 117 (Critical) 135 - 145 mmol/L [facility] LABORATORY Comment: Noted by instrument maintenance supervisor. K Whole Blood 5.7 (H) 3.5 - 5.0 mmol/L [facility] LABORATORY Comment: Please note: Patients with WBC >100,000 may have falsely elevated Potassium levels. Contact the Clinical Chemistry L aboratory if there are any questions. ICa Whole Blood 1.11 (L) 1.15 - 1.33 mmol/L [facility] LABORATORY Comment: Note: ??Total bilirubin higher than 20 m g/dL may lead to falsely low ionized calcium. CL Whole Blood 94 (L) 98 - 107 mmol/L [facility] LABORATORY Gluc Whole Bld 116 65 - 199 mg/dL [facility] LABORATORY Comment: Diabetes: >=200 mg/dL plus symp toms. Lactate WB 1.3 0.5 - 2.2 mmol/L [facility] LABORATORY FIO2 Art 21 % [facility] LABORATORY PF Ratio Art [address] [facility] LABORATORY Specimen Anatomical Collection Method Collection Time Receive d Time (Source) Location / / Volume Laterality Blood 02/07/2022 8:16 AM 2 8:16 EDT AM EDT Jayme Armstrong MD CHEMISTRY ORDERABLES Performing Organization Address City/State/[place] [address] Scan, Peripheral Blood (02/07/2022 6:05 AM EDT) [facility] gist Method Time Signature Plat Estimate Decreased [facility] LABORATORY RBC Morphology Abnormal [facility] LABORATORY Microcytes 1-5 /HPF [facility] LABORATORY Polychromasia Present >5/HPF [facility] LABORATORY Ovalocytes 1-5 /HPF [facility] LABORATORY Angel Cells 1-5 /HPF [facility] LABORATORY Specimen Anatomical Collection Method Collection Time Receive d Time (Source) Location / / Volume Laterality Blood 02/07/2022 6:05 AM 2 6:11 EDT AM EDT Resulting Agency Comment Spec In Lab Collette ELLIS HEMATOLOGY ORDERABLES Performing Organization Address City/[facility]/[place] [address] (ABNORMAL) Differential, Automated (02/07/2022 6:05 AM EDT) [facility] Method Time Signature Neutrophils % 64.3 % [facility] LABORATORY Neutr Abs (ANC) 15.67 (H) 1.70 - [facility] 6.10 [facility] x10(3)/[facility] LABORATORY Lymphocytes % 6.4 % [facility] LABORATORY Lymphocytes Abs 1.6 0.9 - 3.2 [facility] x10(3)/[facility] LABORATORY Monocytes % 13.7 % [facility] LABORATORY Monocyte Abs 3.3 (H) 0.3 - 0.9 [facility] x10(3)/[facility] LABORATORY Eosinophils % 0.5 % [facility] LABORATORY Eosinophils Abs 0.1 0.0 - 0.4 [facility] x10(3)/[facility] LABORATORY Basophils % 0.5 % [facility] LABORATORY Basophils Abs 0.1 0.0 - 0.1 [facility] x10(3)/[facility] LABORATORY Immature Gran % 14.60 % [facility] LABORATORY Comment: Immature granulocytes(IG's)percentage an d absolute [...] Organization Address City/State/[place] [address] (ABNORMAL) Hemogram (02/07/2022 6:05 AM EDT) Patholo gist Method Time Signature WBC 24.3 (H) 4.0 - 9.5 [facility](3[facility] LABORATORY RBC 2.41 (L) 4.58 - [facility] 5.54 [facility] x10(6)/[facility] LABORATORY Hemoglobin 7.1 (L) 13.7 - [facility] 16.5 g/dL [facility] LABORATORY Hematocrit 19.7 (L) 40.5 - [facility] 48.5 % [facility] LABORATORY MCV 81.7 (L) 82.9 - [facility] 93.1 [facility] LABORATORY MCH 29.5 27.5 - [facility] 32.1 pg [facility] LABORATORY MCHC 36.0 (H) 32.0 - [facility] 35.7 g/dL [facility] LABORATORY Platelets 89 (L) 145 - 357 [facility] x10(3)/[facility] LABORATORY RDWSD 42.7 36.0 - [facility] 45.0 [facility] LABORATORY RDWCV 15.1 (H) 11.4 - [facility] 13.8 % [facility] LABORATORY MPV 9.8 7.6 - 12.9 [facility] LABORATORY nRBC % Auto 1.5 % [facility] LABORATORY nRBC Abs Auto 0.370 (H) 0.000 - [facility] 0.000 [facility] x10(3)/[facility] LABORATORY Specimen Anatomical Collection Method Collection Time Receive d Time (Source) Location / / Volume Laterality Blood 02/07/2022 6:05 AM 2 6:11 EDT AM EDT Resulting Agency Comment Spec In Lab Collette ELLIS HEMATOLOGY ORDERABLES Performing Organization Address City/State/[place] [address] (ABNORMAL) Sodium (02/07/2022 6:05 AM EDT) P athologist Signature Sodium 126 (L) 135 - 145 [facility] mmol/L [facility] LABORATORY Specimen Anatomical Collection Method Collection Time Receive d Time (Source) Location / / Volume Laterality Blood 02/07/2022 6:05 AM 2 6:11 EDT AM EDT Resulting Agency Comment Spec In Lab Parrish Betancourt MD CHEMISTRY ORDERABLES Performing Organization Address City/[facility]/ZIP Code Phon e Number [address] Transfuse RBC (02/07/2022 5:36 AM EDT) Jayme Armstrong MD NURSING TREATMENT ORDERABLES - BLOOD ADMIN Transfuse RBC (02/07/2022 5:36 AM EDT) Jayme Armstrong MD NURSING TREATMENT ORDERABLES - BLOOD ADMIN Prepare RBC (02/07/2022 4:55 AM EDT) P athologist Signature Dispensed? Yes [facility] LABORATORY Specimen Anatomical Collection Method Collection Time Receive d Time (Source) Location / / Volume Laterality Blood 02/07/2022 4:55 AM 4:51 EDT AM EDT Jayme Armstrong MD BLOOD BANK ORDERABLES Performing Organization Address City/[facility]/[place] [address] (ABNORMAL) Calcium Ionized Whole Blood, HONORIO (02/07/2022 3:00 AM EDT) Analysis Performed At Patho logist Time Signature pH Honorio 7.45 (H) 7.32 - [facility] 7.42 [facility] LABORATORY ICa Whole 1.14 (L) 1.15 - [facility] Blood 1.33 [facility] mmol/L [facility] LABORATORY Comment: Note: ??Total bilirubin higher than 20 m g/dL may lead to falsely low ionized calcium. Specimen Anatomical Collection Method Collection Time Receive d Time (Source) Location / / Volume Laterality Blood ARTERIAL LINE / 02/07/2022 3:00 AM 2021 3:11 Unknown EDT AM EDT Resulting Agency Comment Spec In Lab Angelina Reynoso MD CHEMISTRY ORDERABLES Performing Organization Address City/[facility]/[place] [address] Fibrinogen (02/07/2022 2:10 AM EDT) P athologist Signature Fibrinogen 362 200 - 393 [facility] mg/dL [facility] LABORATORY Comment: A fibrinogen level >100 mg/dL is adequat e for hemostasis in most patients without underlying bleeding disorders. Specimen Anatomical Collection Method Collection Time Receive d Time (Source) Location / / Volume Laterality Blood 02/07/2022 2:10 AM 2 2:19 EDT AM EDT Resulting Agency Comment Spec In Lab Collette ELLIS HEMATOLOGY ORDERABLES Performing Organization Address [facility] [place] [address] Prothrombin Time (02/07/2022 2:10 AM EDT) athologist Signature PT 11.3 9.4 - 12.5 [facility] LABORATORY INR 1.0 [facility] LABORATORY Comment: An INR <2.0 indicates adequate [...] Collette ELLIS HEMATOLOGY ORDERABLES Performing Organization Address City/[facility] [place] [address] (ABNORMAL) Platelet count (02/07/2022 2:10 AM EDT) P athologist Signature Platelets 128 (L) 145 - 357 [facility] x10(3)/[facility] LABORATORY Plat Immature 7.0 0.0 - 7.4 [facility] % [facility] LABORATORY Comment: Limitation of the Immature Platelet Frac tion (IPF)-May be less reliable when the platelet count is less than 56w391/u L due to statistical imprecision. The IPF [...] in a decreased state of production. References: [employer] The Clinical Value of the Immature Platelet Fraction (IPF) in Cell Recovery Document Number [id number] 12/2010 [employer] The Role of the Imm ature Platelet Fraction (IPF) in the Differential Diagnosis of Thrombocytopen ia, Document [id number] V05 P012/12 Specimen Anatomical Collection Method Collection Time Receive d Time (Source) Location / / Volume Laterality Blood 02/07/2022 2:10 AM 2 2:19 EDT AM EDT Resulting Agency Comment Spec In Lab Collette ELLIS HEMATOLOGY ORDERABLES Performing Organization Address City/State/ZIP Code Phon e Number [address] (ABNORMAL) Hematocrit (02/07/2022 2:10 AM EDT) P athologist Signature Hematocrit 19.8 (L) 40.5 - [facility] 48.5 % [facility] LABORATORY Specimen Anatomical Collection Method Collection Time Receive d Time (Source) Location / / Volume Laterality Blood 02/07/2022 2:10 AM 2 2:19 EDT AM EDT Resulting Agency Comment Spec In Lab Collette ELLIS HEMATOLOGY ORDERABLES Performing Organization Address City/State/ZIP Code Phon e Number [address] (ABNORMAL) Hemoglobin (02/07/2022 2:10 AM EDT) P athologist Signature Hemoglobin 7.2 (L) 13.7 - 16.5 [facility] g/dL [facility] LABORATORY Specimen Anatomical Collection Method Collection Time Receive d Time (Source) Location / / Volume Laterality Blood 02/07/2022 2:10 AM 2 2:19 EDT AM EDT Resulting Agency Comment Spec In Lab Collette ELLIS HEMATOLOGY ORDERABLES Performing Organization Address City/State/[place] [address] (ABNORMAL) BLOOD GAS 2 ARTERIAL (02/07/2022 12:52 AM EDT) Analysis Performed At Patho logist Time Signature pH Art 7.44 7.35 - [facility] 7.45 [facility] LABORATORY pCO2 Art 34 (L) 35 - 45 [facility] mmHg [facility] LABORATORY pO2 Art 81 (L) 85 - 104 [facility] LABORATORY HCO3 Art 22.4 20.0 - [facility] 26.0 [facility] mmol/L [facility] LABORATORY BE Art -1.7 -3.0 - 3.0 [facility] mmol/L [facility] LABORATORY Hgb Blood Gas 8.5 (L) 13.7 - [facility] 16.5 g/dL [facility] LABORATORY O2HB Art 93.4 (L) 94.0 - [facility] 97.0 % [facility] LABORATORY COHB Art 0.3 % [facility] LABORATORY Comment: Nonsmokers: 0.5-1.5% COHB Smokers: Variable, but usually less than 10% Toxic: 20-30% COHB Lethal: Greater than 60% COHB METHB Art 1.0 <=1.5 % [facility] LABORATORY Na Whole Blood 118 (Critical) 135 - 145 mmol/L [facility] LABORATORY Comment: Noted by instrument maintenance supervisor. K Whole Blood 5.6 (H) 3.5 - 5.0 mmol/L [facility] LABORATORY Comment: Please note: Patients with WBC >100,000 may have falsely elevated Potassium levels. Contact the Clinical Chemistry L aboratory if there are any questions. ICa Whole Blood 1.11 (L) 1.15 - 1.33 mmol/L [facility] LABORATORY Comment: Note: ??Total bilirubin higher than 20 m g/dL may lead to falsely low ionized calcium. CL Whole Blood 94 (L) 98 - 107 mmol/L [facility] LABORATORY Gluc Whole Bld 136 65 - 199 mg/dL [facility] LABORATORY Comment: Diabetes: >=200 mg/dL plus symp toms. Lactate WB 1.4 0.5 - 2.2 mmol/L [facility] LABORATORY FIO2 Art 21 % [facility] LABORATORY PF Ratio Art [address] [facility] LABORATORY Specimen Anatomical Collection Method Collection Time Receive d Time (Source) Location / / Volume Laterality Blood 02/07/2022 12:52 02/07/2022 AM EDT 12:52 AM EDT Jayme Armstrong MD CHEMISTRY ORDERABLES Performing Organization Address City/State/[place] [address] (ABNORMAL) Basic Metabolic Panel (non-fasting) (02/07/2022 12:47 AM EDT) athologist Signature Glucose Lvl 136 65 - 199 [facility] mg/dL [facility] LABORATORY Comment: Diabetes: >=200 mg/dL plus symp toms BUN 38 (H) 10 - 20 mg/dL [facility] LABORATORY Creatinine 3.43 (H) 0.80 - 1.50 mg/dL [facility] LABORATORY Comment: result rechecked-sf Sodium 125 (L) 135 - 145 mmol/L [facility] LABORATORY Potassium 5.8 (H) 3.5 - 5.0 mmol/L [facility] LABORATORY Comment: Please note: ??Patients with WBC >100,00 0 may have falsely elevated Potassium levels. ??For accurate Potassium quantif ication in these patients send serum separator tube (gold top) for subsequent determinations. ??Contact the Clinical Chemistry Laboratory if there are any qu estions. Chloride 94 (L) 98 - 107 mmol/L [facility] LABORATORY CO2 22 22 - 31 mmol/L [facility] LABORATORY Anion Gap 9 5 - 15 mmol/L [facility] LABORATORY Calcium 7.6 (L) 8.5 - 10.5 mg/dL [facility] LABORATORY Comment: result rechecked-sf Estimated GFR 24 (L) >=60 mL/min/1.73 m?? [facility] LABORATORY Comment: This patient's estimated [...] Organization Address City/State/ZIP Code Phon e Number [address] (ABNORMAL) Phosphorus (02/07/2022 12:47 AM EDT) P athologist Signature Phosphorus 5.0 (H) 2.5 - 4.5 [facility] mg/dL [facility] LABORATORY Specimen Anatomical Collection Method Collection Time Receive d Time (Source) Location / / Volume Laterality Blood 02/07/2022 12:47 02/07/2022 1:02 AM EDT AM EDT Resulting Agency Comment Spec In Lab Gela Novak MD CHEMISTRY ORDERABLES Performing Organization Address City/State/ZIP Code Phon e Number [address] Magnesium (02/07/2022 12:47 AM EDT) P athologist Signature Magnesium 0.84 0.69 - 1.07 [facility] mmol/L [facility] LABORATORY Specimen Anatomical Collection Method Collection Time Receive d Time (Source) Location / / Volume Laterality Blood 02/07/2022 12:47 02/07/2022 1:02 AM EDT AM EDT Resulting Agency Comment Spec In Lab Gela Novak MD CHEMISTRY ORDERABLES Performing Organization Address [facility] [place] [address] Fibrinogen (02/06/2022 11:11 PM EDT) athologist Signature Fibrinogen 362 200 - 393 [facility] mg/dL [facility] LABORATORY Comment: A fibrinogen level >100 mg/dL is adequat e for hemostasis in most patients without underlying bleeding disorders. Specimen Anatomical Collection Method Collection Time Receive d Time (Source) Location / / Volume Laterality Blood 02/06/2022 11:11 02/06/2022 PM EDT 11:15 PM EDT Resulting Agency Comment Spec In Lab Jeanette Escamilla APRN HEMATOLOGY ORDERABLES Performing Organization Address [facility] [place] [address] Prothrombin Time (02/06/2022 11:11 PM EDT) athologist Signature PT 11.0 9.4 - 12.5 [facility] LABORATORY INR 1.0 [facility] LABORATORY Comment: An INR <2.0 indicates adequate [...] Escamilla APRN HEMATOLOGY ORDERABLES Performing Organization Address [facility] [place] [address] (ABNORMAL) Platelet count (02/06/2022 11:11 PM EDT) P athologist Signature Platelets 125 (L) 145 - 357 [facility] x10(3)/[facility] LABORATORY Plat Immature 5.3 0.0 - 7.4 [facility] % % [facility] LABORATORY Comment: Limitation of the Immature Platelet Frac tion (IPF)-May be less reliable when the platelet count is less than 10g831/u L due to statistical imprecision. The IPF [...] in a decreased state of production. References: [employer] The Clinical Value of the Immature Platelet Fraction (IPF) in Cell Recovery Document Number [id number] 12/2010 [employer] The Role of the Imm ature Platelet Fraction (IPF) in the Differential Diagnosis of Thrombocytopen ia, Document [id number] V05 P05 Specimen Anatomical Collection Method Collection Time Receive d Time (Source) Location / / Volume Laterality Blood 02/06/2022 11:11 02/06/2022 PM EDT 11:15 PM EDT Resulting Agency Comment Spec In Lab Jeanette Escamilla APRN HEMATOLOGY ORDERABLES Performing Organization Address City/State/ZIP Code Phon e Number [facility] [place] [address] (ABNORMAL[address] Hematocrit (02/06/2022 11:11 PM EDT) P athologist Signature Hematocrit 20.8 (L) 40.5 - [facility] 48.5 % [facility] LABORATORY Specimen Anatomical Collection Method Collection Time Receive d Time (Source) Location / / Volume Laterality Blood 02/06/2022 11:11 02/06/2022 PM EDT 11:15 PM EDT Resulting Agency Comment Spec In Lab Jeanette E Escamilla ASSISTANT PROFESSOR OF SOCIOLOGY HEMATOLOGY ORDERABLES Performing Organization Address City/[facility]/[place] [address] (ABNORMAL) Hemoglobin (02/06/2022 11:11 PM EDT) P athologist Signature Hemoglobin 7.7 (L) 13.7 - 16.5 [facility] g/dL [facility] LABORATORY Specimen Anatomical Collection Method Collection Time Receive d Time (Source) Location / / Volume Laterality Blood 02/06/2022 11:11 02/06/2022 PM EDT 11:15 PM EDT Resulting Agency Comment Spec In Lab Jeanette Escamilla APRN HEMATOLOGY ORDERABLES Performing Organization Address City/[facility]/[place] [address] (ABNORMAL) Sodium (02/06/2022 11:11 PM EDT) P athologist Signature Sodium 124 (L) 135 - 145 [facility] mmol/L [facility] LABORATORY Specimen Anatomical Collection Method Collection Time Receive d Time (Source) Location / / Volume Laterality Blood 02/06/2022 11:11 02/06/2022 PM EDT 11:15 PM EDT Resulting Agency Comment Spec In Lab Parrish Betancourt MD CHEMISTRY ORDERABLES Performing Organization Address City/[facility]/[place] [address] (ABNORMAL) Calcium Ionized Whole Blood, HONORIO (02/06/2022 10:51 PM EDT) Analysis Performed At Patho logist Time Signature pH Honorio 7.44 (H) 7.32 - [facility] 7.42 [facility] LABORATORY ICa Whole 1.07 (L) 1.15 - [facility] Blood 1.33 [facility] mmol/[facility] LABORATORY Comment: Note: ??Total bilirubin higher than 20 m g/dL may lead to falsely low ionized calcium. Specimen Anatomical Collection Method Collection Time Receive d Time (Source) Location / / Volume Laterality Blood ARTERIAL LINE / 02/06/2022 10:51 02/07/20 22 Unknown PM EDT 11:06 PM EDT Resulting Agency Comment Spec In Lab Angelina Reynoso MD CHEMISTRY ORDERABLES Performing Organization Address City/[facility]/ZIP Code Phon e Number [address] Fibrinogen (02/06/2022 10:20 PM EDT) athologist Signature Fibrinogen 351 200 - 393 [facility] mg/dL [facility] LABORATORY Comment: A fibrinogen level >100 mg/dL is adequat e for hemostasis in most patients without underlying bleeding disorders. Specimen Anatomical Collection Method Collection Time Receive d Time (Source) Location / / Volume Laterality Blood 02/06/2022 10:20 02/06/2022 PM EDT 11:10 PM EDT Resulting Agency Comment Spec In Lab Jeanette Escamilla APRN HEMATOLOGY ORDERABLES Performing Organization Address [facility] Code Phon e Number [address] Prothrombin Time (02/06/2022 10:20 PM EDT) athologist Signature PT 11.1 9.4 - 12.5 [facility] LABORATORY INR 1.0 [facility] LABORATORY Comment: An INR <2.0 indicates adequate [...] Escamilla APRN HEMATOLOGY ORDERABLES Performing Organization Address [facility]/[place]IP [facility] Phon [place] Number [address] (ABNORMAL) Platelet count (02/06/2022 10:20 PM EDT) athologist Signature Platelets 126 (L) 145 - 357 [facility] x10(3)/[facility] LABORATORY Plat Immature 5.9 0.0 - 7.4 [facility] % % [facility] LABORATORY Comment: Limitation of the Immature Platelet Frac tion (IPF)-May be less reliable when the platelet count is less than 56s883/u L due to statistical imprecision. The IPF [...] in a decreased state of production. References: [employer] The Clinical Value of the Immature Platelet Fraction (IPF) in Cell Recovery Document Number [id number] 12/2010 [employer] The Role of the Imm ature Platelet Fraction (IPF) in the Differential Diagnosis of Thrombocytopen ia, Document [id number] V05/07/14 P0514 Specimen Anatomical Collection Method Collection Time Receive d Time (Source) Location / / Volume Laterality Blood 02/06/2022 10:20 02/06/2022 PM EDT 11:10 PM EDT Resulting Agency Comment Spec In Lab Jeanette Escamilla ASSISTANT PROFESSOR OF SOCIOLOGY HEMATOLOGY ORDERABLES Performing Organization Address City/[facility]/[place] [address] (ABNORMAL) Hematocrit (02/06/2022 10:20 PM EDT) P athologist Signature Hematocrit 20.5 (L) 40.5 - [facility] 48.5 % [facility] LABORATORY Specimen Anatomical Collection Method Collection Time Receive d Time (Source) Location / / Volume Laterality Blood 02/06/2022 10:20 02/06/2022 PM EDT 11:10 PM EDT Resulting Agency Comment Spec In Lab Jeanette Escamilla APRN HEMATOLOGY ORDERABLES Performing Organization Address City/[facility]/[place]IP [facility] [place] [address] (ABNORMAL) Hemoglobin (02/06/2022 10:20 PM EDT) athologist Signature Hemoglobin 7.6 (L) 13.7 - 16.5 [facility] g/dL [facility] LABORATORY Specimen Anatomical Collection Method Collection Time Receive d Time (Source) Location / / Volume Laterality Blood 02/06/2022 10:20 02/06/2022 PM EDT 11:10 PM EDT Resulting Agency Comment Spec In Lab Jeanette Escamilla APRN HEMATOLOGY ORDERABLES Performing Organization Address City/State/[place] [address] Fibrinogen (02/06/2022 7:45 PM EDT) athologist Signature Fibrinogen 321 200 - 393 [facility] mg/dL [facility] LABORATORY Comment: A fibrinogen level >100 mg/dL is adequat e for hemostasis in most patients without underlying bleeding disorders. Specimen Anatomical Collection Method Collection Time Receive d Time (Source) Location / / Volume Laterality Blood 02/06/2022 7:45 PM 2 7:56 EDT PM EDT Resulting Agency Comment Spec In Lab Jeanette Escamilla APRN HEMATOLOGY ORDERABLES Performing Organization Address City/[facility]/[place] [address] Prothrombin Time (02/06/2022 7:45 PM EDT) athologist Signature PT 11.0 9.4 - 12.5 [facility] LABORATORY INR 1.0 [facility] LABORATORY Comment: An INR <2.0 indicates adequate [...] Agency Comment Spec In Lab Jeanette Escamilla ASSISTANT PROFESSOR OF SOCIOLOGY HEMATOLOGY ORDERABLES Performing Organization Address City/State/[place] [address] (ABNORMAL) Platelet count (02/06/2022 7:45 PM EDT) athologist Signature Platelets 137 (L) 145 - 357 [facility] x[facility](3[facility] LABORATORY Plat Immature 4.8 0.0 - 7.4 [facility] % % [facility] LABORATORY Comment: Limitation of the Immature Platelet Frac tion (IPF)-May be less reliable when the platelet count is less than 29b861/u L due to statistical imprecision. The IPF [...] in a decreased state of production. References: [employer] The Clinical Value of the Immature Platelet Fraction (IPF) in Cell Recovery Document Number [id number] 12/2010 [employer] The Role of the Imm ature Platelet Fraction (IPF) in the Differential Diagnosis of Thrombocytopen ia, Document [id number] V05 P0514 Specimen Anatomical Collection Method Collection Time Receive d Time (Source) Location / / Volume Laterality Blood 02/06/2022 7:45 PM 7:56 EDT PM EDT Resulting Agency Comment Spec In Lab Jeanette Escamilla ASSISTANT PROFESSOR OF SOCIOLOGY HEMATOLOGY ORDERABLES Performing Organization Address City/State/[place] [address] (ABNORMAL) Hematocrit (02/06/2022 7:45 PM EDT) P athologist Signature Hematocrit 22.1 (L) 40.5 [facility] 48.5 % [facility] LABORATORY Specimen Anatomical Collection Method Collection Time Receive d Time (Source) Location / / Volume Laterality Blood 02/06/2022 7:45 PM 2 7:56 EDT PM EDT Resulting Agency Comment Spec In Lab Jeanette Juan Andi AVENDAÑO HEMATOLOGY ORDERABLES Performing Organization Address City/[facility]/[place]IP [facility] [place] [address] (ABNORMAL) Hemoglobin (02/06/2022 7:45 PM EDT) P athologist Signature Hemoglobin 8.1 (L) 13.7 - 16.5 [facility] g/dL [facility] LABORATORY Specimen Anatomical Collection Method Collection Time Receive d Time (Source) Location / / Volume Laterality Blood 02/06/2022 7:45 PM 2 7:56 EDT PM EDT Resulting Agency Comment Spec In Lab Jeanette Escamilla APRN HEMATOLOGY ORDERABLES Performing Organization Address City/[facility] [place] [address] (ABNORMAL) Electrolytes panel (02/06/2022 7:45 PM EDT) athologist Signature Sodium 123 (L) 135 - 145 [facility] mmol/L [facility] LABORATORY Potassium 6.1 3.5 - 5.0 [facility] (Critical) mmol/L [facility] LABORATORY Comment: Called by: renuka, Read back by: dixie diego, Date/Time:02/06/22 20:32. Please note: ??Patients with WBC >100,00 0 may have falsely elevated Potassium levels. ??For accurate Potassium quantif ication in these patients send serum separator tube (gold top) for subsequent determinations. ??Contact the Clinical Chemistry Laboratory if there are any qu estions. Chloride 94 (L) 98 - 107 mmol/L [facility] LABORATORY CO2 21 (L) 22 - 31 mmol/L [facility] LABORATORY Anion Gap 8 5 - 15 mmol/L [facility] LABORATORY Specimen Anatomical Collection Method Collection Time Receive d Time (Source) Location / / Volume Laterality Blood 02/06/2022 7:45 PM 7:56 EDT PM EDT Resulting Agency Comment Spec In Lab Angelina Reynoso MD CHEMISTRY ORDERABLES Performing Organization Address City/State/[place] [address] (ABNORMAL) BLOOD GAS 2 ARTERIAL (02/06/2022 7:44 PM EDT) Analysis Performed At Patho logist Time Signature pH Art 7.44 7.35 - [facility] 7.45 [facility] LABORATORY pCO2 Art 31 (L) 35 - 45 [facility] mmHg [facility] LABORATORY pO2 Art 86 85 - 104 [facility] LABORATORY HCO3 Art 20.4 20.0 - [facility] 26.0 [facility] mmol/[facility] LABORATORY BE Art -3.7 (L) -3.0 - 3.0 [facility] mmol/L [facility] LABORATORY Hgb Blood Gas 9.2 (L) 13.7 - [facility] 16.5 g/dL [facility] O2HB Art 94.1 94.0 - [facility] 97.0 % [facility] LABORATORY COHB Art 0.3 % [facility] LABORATORY Comment: Nonsmokers: 0.5-1.5% COHB Smokers: Variable, but usually less than 10% Toxic: 20-30% COHB Lethal: Greater than 60% COHB METHB Art 0.9 <=1.5 % [facility] LABORATORY Na Whole Blood 118 (Critical) 135 - 145 mmol/L [facility] LABORATORY Comment: Noted by instrument maintenance supervisor. K Whole Blood 5.8 (H) 3.5 - 5.0 mmol/L [facility] LABORATORY Comment: Please note: Patients with WBC >100,000 may have falsely elevated Potassium levels. Contact the Clinical Chemistry L aboratory if there are any questions. ICa Whole Blood 1.03 (L) 1.15 - 1.33 mmol/L [facility] LABORATORY Comment: Note: ??Total bilirubin higher than 20 m g/dL may lead to falsely low ionized calcium. CL Whole Blood 94 (L) 98 - 107 mmol/L [facility] LABORATORY Gluc Whole Bld 143 65 - 199 mg/dL [facility] LABORATORY Comment: Diabetes: >=200 mg/dL plus symp toms. Lactate WB 1.5 0.5 - 2.2 mmol/L [facility] LABORATORY FIO2 Art 21 % [facility] LABORATORY PF Ratio Art [address] [facility] LABORATORY Specimen Anatomical Collection Method Collection Time Receive d Time (Source) Location / / Volume Laterality Blood 02/06/2022 7:44 PM 7:44 EDT PM EDT Jayme Armstrong MD CHEMISTRY ORDERABLES Performing Organization Address City/State/[place] [address] (ABNORMAL) BLOOD GAS 2 ARTERIAL (02/06/2022 5:47 PM EDT) Analysis Performed At Patho logist Time Signature pH Art 7.42 7.35 - [facility] 7.45 [facility] LABORATORY pCO2 Art 30 (L) 35 - 45 [facility] mmHg [facility] LABORATORY pO2 Art 68 (L) 85 - 104 [facility] LABORATORY HCO3 Art 19.2 (L) 20.0 - [facility] 26.0 [facility] mmol/L [facility] LABORATORY BE Art -5.2 (L) -3.0 - 3.0 [facility] mmol/L [facility] LABORATORY Hgb Blood Gas 9.3 (L) 13.7 - [facility] 16.5 g/dL [facility] LABORATORY O2HB Art 91.8 (L) 94.0 - [facility] 97.0 % [facility] LABORATORY COHB Art 0.3 % [facility] LABORATORY Comment: Nonsmokers: 0.5-1.5% COHB Smokers: Variable, but usually less than 10% Toxic: 20-30% COHB Lethal: Greater than 60% COHB METHB Art 0.9 <=1.5 % [facility] LABORATORY Na Whole Blood 117 (Critical) 135 - 145 mmol/L [facility] LABORATORY Comment: Noted by instrument maintenance supervisor. K Whole Blood 6.0 (H) 3.5 - 5.0 mmol/L [facility] LABORATORY Comment: Please note: Patients with WBC >100,000 may have falsely elevated Potassium levels. Contact the Clinical Chemistry L aboratory if there are any questions. ICa Whole Blood 0.98 (L) 1.15 - 1.33 mmol/L [facility] LABORATORY Comment: Note: ??Total bilirubin higher than 20 m g/dL may lead to falsely low ionized calcium. CL Whole Blood 93 (L) 98 - 107 mmol/L [facility] LABORATORY Gluc Whole Bld 131 65 - 199 mg/dL [facility] LABORATORY Comment: Diabetes: >=200 mg/dL plus symp toms. Lactate WB 1.8 0.5 - 2.2 mmol/L [facility] LABORATORY FIO2 Art 21 % [facility] LABORATORY PF Ratio Art [address] [facility] LABORATORY Specimen Anatomical Collection Method Collection Time Receive d Time (Source) Location / / Volume Laterality Blood 02/06/2022 5:47 PM 2 5:47 EDT PM EDT Jayme Armstrong MD CHEMISTRY ORDERABLES Performing Organization Address City/State/ZIP Code Phon e Number [address] POCT Glucose (02/06/2022 5:44 PM EDT) athologist Signature POC Glucose 153 65 - 199 [facility] mg/dL [facility] LABORATORY Comment: Supplemental ranges: <140 mg/dL before meals <180 mg/dL all other times of the day Specimen Anatomical Collection Method Collection Time Receive d Time (Source) Location / / Volume Laterality Blood 02/06/2022 5:44 PM 2 5:44 EDT PM EDT Jayme Armstrong MD POINT OF CARE TEST ORDERABLE S Performing Organization Address City/State/ZIP Code Phon e Number [address] Fibrinogen (02/06/2022 4:33 PM EDT) athologist Signature Fibrinogen 300 200 - 393 [facility] mg/dL [facility] LABORATORY Comment: OR Result called by ?? [...] Armstrong MD HEMATOLOGY ORDERABLES Performing Organization Address [facility] Phon e Number [address] APTT (02/06/2022 4:33 PM EDT) P athologist Signature PTT 25 25 - 37 sec [facility] LABORATORY Comment: OR Result called [...] Armstrong MD HEMATOLOGY ORDERABLES Performing Organization Address City/[facility] [place] [address] Prothrombin Time (02/06/2022 4:33 PM EDT) P athologist Signature PT 11.2 9.4 - 12.5 [facility] LABORATORY Comment: OR Result called by ?? PARSAD OR Result s read back by: ? Divina Otero at 2022-02-06 16:54:39 INR 1.0 [facility] LABORATORY Comment: OR Result [...] Armstrong MD HEMATOLOGY ORDERABLES Performing Organization Address City/[facility] [place] [address] (ABNORMAL) Phosphorus (02/06/2022 4:20 PM EDT) P athologist Signature Phosphorus 7.4 (H) 2.5 - 4.5 [facility] mg/dL [facility] LABORATORY Specimen Anatomical Collection Method Collection Time Receive d Time (Source) Location / / Volume Laterality Blood Venous Draw / 02/06/2022 4:20 PM 02/07/20 22 6:05 Unknown EDT PM EDT Resulting Agency Comment Spec In Lab Jeanette Escamilla ASSISTANT PROFESSOR OF SOCIOLOGY CHEMISTRY ORDERABLES Performing Organization Address City/[facility]/[place] [address] Magnesium (02/06/2022 4:20 PM EDT) P athologist Signature Magnesium 0.93 0.69 - 1.07 [facility] mmol/L [facility] LABORATORY Specimen Anatomical Collection Method Collection Time Receive d Time (Source) Location / / Volume Laterality Blood Venous Draw / 02/06/2022 4:20 PM 02/07/20 22 6:05 Unknown EDT PM EDT Resulting Agency Comment Spec In Lab Jeanette Escamilla ASSISTANT PROFESSOR OF SOCIOLOGY CHEMISTRY ORDERABLES Performing Organization Address City/[facility] Phon e Number [address] (ABNORMAL) Differential, Automated (02/06/2022 4:20 PM EDT) [facility] gist Method Time Signature Neutrophils % 56.4 % [facility] LABORATORY Neutr Abs (ANC) 13.74 (H) 1.70 - [facility] 6.10 [facility] x10(3)/[facility] LABORATORY Lymphocytes % 9.1 % [facility] LABORATORY Lymphocytes Abs 2.2 0.9 - 3.2 [facility] x10(3)/[facility] LABORATORY Monocytes % 13.3 % [facility] LABORATORY Monocyte Abs 3.2 (H) 0.3 - 0.9 [facility] x10(3)/[facility] LABORATORY Eosinophils % 1.1 % [facility] LABORATORY Eosinophils Abs 0.3 0.0 - 0.4 [facility] x10(3)/[facility] LABORATORY Basophils % 1.1 % [facility] LABORATORY Basophils Abs 0.3 (H) 0.0 - 0.1 [facility] x10(3)/[facility] LABORATORY Immature Gran % 19.00 % [facility] LABORATORY Comment: Immature granulocytes(IG's)percentage an d absolute [...] Organization Address City/State/ZIP Code Phon e Number [address] (ABNORMAL) Hemogram (02/06/2022 4:20 PM EDT) athologist Signature WBC 24.4 (H) 4.0 - 9.5 [facility] x10(3)/[facility] LABORATORY RBC 2.87 (L) 4.58 - [facility] 5.54 [facility] x10(6)/[facility] LABORATORY Hemoglobin 8.5 (L) 13.7 - [facility] 16.5 g/dL [facility] LABORATORY Hematocrit 23.4 (L) 40.5 - [facility] 48.5 % [facility] LABORATORY Comment: This result has been called to DIVINA MORA by Tamara Hernandez on 02 06 2022 at 1653, and has been read back. MCV 81.5 (L) 82.9 - 93.1 [facility] LABORATORY MCH 29.6 27.5 - 32.1 pg [facility] LABORATORY MCHC 36.3 (H) 32.0 - 35.7 g/dL [facility] LABORATORY Platelets 110 (L) 145 - 357 x10(3)/[facility] LABORATORY RDWSD 39.9 36.0 - 45.0 [facility] LABORATORY RDWCV 13.9 (H) 11.4 - 13.8 % [facility] LABORATORY MPV 9.7 7.6 - 12.9 [facility] LABORATORY nRBC % Auto 2.0 % [facility] LABORATORY nRBC Abs Auto 0.500 (H) 0.000 - 0.000 x10(3)/[facility] LABORATORY Specimen Anatomical Collection Method Collection Time Receive d Time (Source) Location / / Volume Laterality Blood 02/06/2022 4:20 PM 4:33 EDT PM EDT Resulting Agency Comment Spec In Lab Jayme Armstrong MD HEMATOLOGY ORDERABLES Performing Organization Address City/State/[place] [address] (ABNORMAL) Basic Metabolic Panel (non-fasting) (02/06/2022 4:20 PM EDT) athologist [facility] Glucose Lvl 117 65 - 199 [facility] mg/dL [facility] LABORATORY Comment: Diabetes: >=200 mg/dL plus symp toms BUN 47 (H) 10 - 20 mg/dL [facility] LABORATORY Creatinine 4.73 (H) 0.80 - 1.50 mg/dL [facility] LABORATORY Sodium 122 (L) 135 - 145 mmol/L [facility] LABORATORY Potassium 6.1 (Critical) 3.5 - 5.0 mmol/L [facility] LABORATORY Comment: Called by KAI/Read back by Virgie walkeray/02/06/2022 @ 1717 Please note: ??Patients with WBC >100,00 0 may have falsely elevated Potassium levels. ??For accurate Potassium quantif ication in these patients send serum separator tube (gold top) for subsequent determinations. ??Contact the Clinical Chemistry Laboratory if there are any qu estions. Chloride 92 (L) 98 - 107 mmol/L [facility] LABORATORY CO2 21 (L) 22 - 31 mmol/L [facility] LABORATORY Anion Gap 9 5 - 15 mmol/L [facility] LABORATORY Calcium 6.7 (Critical) 8.5 - 10.5 mg/dL [facility] LABORATORY Comment: Called by KAI/Read back by Soila Castle/02/06/2022 @ 1713 Estimated GFR 16 (L) >=60 mL/min/1.73 m?? [facility] LABORATORY Comment: This patient's estimated [...] Organization Address City/State/[place] [address] (ABNORMAL) BLOOD GAS 2 ARTERIAL (02/06/2022 3:54 PM EDT) Analysis Performed At Patho logist Time Signature pH Art 7.37 7.35 - [facility] 7.45 [facility] LABORATORY pCO2 Art 38 35 - 45 [facility] mmHg [facility] LABORATORY pO2 Art 325 (H) 85 - 104 [facility] LABORATORY HCO3 Art 21.8 20.0 - [facility] 26.0 [facility] mmol/L [facility] LABORATORY BE Art -3.4 (L) -3.0 - 3.0 [facility] mmol/L [facility] LABORATORY Hgb Blood Gas 8.8 (L) 13.7 - [facility] 16.5 g/dL [facility] O2HB Art 98.0 (H) 94.0 - [facility] 97.0 % [facility] LABORATORY COHB Art 1.1 % [facility] LABORATORY Comment: Nonsmokers: 0.5-1.5% COHB Smokers: Variable, but usually less than 10% Toxic: 20-30% COHB Lethal: Greater than 60% COHB METHB Art 0.3 <=1.5 % [facility] LABORATORY Na Whole Blood 117 (Critical) 135 - 145 mmol/L [facility] LABORATORY Comment: Critical notified to Amber Ray by ins trument shooting gallery operator immediately following run time. K Whole Blood 5.7 (H) 3.5 - 5.0 mmol/L [facility] LABORATORY Comment: Please note: Patients with WBC >100,000 may have falsely elevated Potassium levels. Contact the Clinical Chemistry L aboratory if there are any questions. ICa Whole Blood 1.00 (L) 1.15 - 1.33 mmol/L [facility] LABORATORY Comment: Note: ??Total bilirubin higher than 20 m g/dL may lead to falsely low ionized calcium. CL Whole Blood 93 (L) 98 - 107 mmol/L [facility] LABORATORY Gluc Whole Bld 115 65 - 199 mg/dL [facility] LABORATORY Comment: Diabetes: >=200 mg/dL plus symp toms. Lactate WB 1.4 0.5 - 2.2 mmol/L [facility] LABORATORY Specimen Anatomical Collection Method Collection Time Receive d Time (Source) Location / / Volume Laterality Blood 02/06/2022 3:54 PM 3:54 EDT PM EDT Jayme Armstrong MD CHEMISTRY ORDERABLES Performing Organization Address City/State/[place] [address] IR Arteriogram Lower Extremity [...] 2. Flat for 2 hours, following Right POLYTECHNIC REGISTRAR Mynx closure deployment 3. Monitor for Right [...] General an esthesia Anesthesia/sedation administered [facility]: [facility] Total intra-service sedation time (minut es): Please refer to anesthesia notes for further details. Access Local anesthesia was administered. The v essel was sonographically evaluated and judged to be patent. Real time ultrasoun d was used to visualize needle entry into the vessel and a permanent image wa s stored. A 5 Czech sheath was placed. Vessel accessed: Right common femoral ar timo Access technique: Micropuncture set with 21 gauge needle Left pelvic angiography The left pelvic arterial system was cath eterized using a 150 cm 0.035 3J guidewire, 5 Czech Berenstein catheter, 3 Czech renegade STC microcatheter and wire. Vessel catheterized: [...] who have questions please contact the health administrator health care facility that requested your imaging first. ? Electronically signed by: Nicole escobar MD, [facility] ([phone]), at 02/08/2022 3:14 PM Narrative 02/08/2022 3:14 [...] 2. Flat for 2 hours, following Right POLYTECHNIC REGISTRAR Mynx closure deployment 3. Monitor for Right [...] General an esthesia Anesthesia/sedation administered by: Kathryn [facility] Total intra-service sedation time (minut es): Please refer to anesthesia notes for further details. Access Local anesthesia was administered. The v essel was sonographically evaluated and judged to be patent. Real time ultrasoun d was used to visualize needle entry into the vessel and a permanent image wa s stored. A 5 Czech sheath was placed. Vessel accessed: Right common femoral ar timo Access technique: Micropuncture set with 21 gauge needle Left pelvic angiography The left pelvic arterial system was cath eterized using a 150 cm 0.035 3J guidewire, 5 Czech Berenstein catheter, 3 Czech renegade STC microcatheter and wire. Vessel catheterized: [...] ho have questions please contact the health administrator health care facility that requested your imaging first. Electronically signed by: iNcole escobar MD, [facility] ([phone]), at 02/08/2022 3:14 PM Jeanette Escamilla APRN IMG IR ORDERABLES POCT Glucose (02/06/2022 12:16 PM EDT) athologist Signature POC Glucose 167 65 - 199 [facility] mg/dL [facility] Comment: Supplemental ranges: <140 mg/dL before meals <180 mg/dL all other times of the day Specimen Anatomical Collection Method Collection Time Receive d Time (Source) Location / / Volume Laterality Blood 02/06/2022 12:16 02/06/2022 PM EDT 12:16 PM EDT Jayme Armstrong MD POINT OF CARE TEST ORDERABLE S Performing Organization Address City/[facility]/ZIP Code Phon e Number [place] [phone] Fibrinogen (02/06/2022 11:30 AM EDT) P athologist Signature Fibrinogen 279 200 - 393 [facility] mg/dL [facility] Comment: A fibrinogen level >100 mg/dL is adequat e for hemostasis in most patients without underlying bleeding disorders. Specimen Anatomical Collection Method Collection Time Receive d Time (Source) Location / / Volume Laterality Blood 02/06/2022 11:30 02/06/2022 AM EDT 11:36 AM EDT Resulting Agency Comment Spec In Lab Jeanette Escamilla APRN HEMATOLOGY ORDERABLES Performing Organization Address City/[facility]/ZIP Code Phon e Number [place] [phone] Prothrombin Time (02/06/2022 11:30 AM EDT) P athologist Signature PT 11.6 9.4 - 12.5 [facility] LABORATORY INR 1.0 [facility] Comment: An INR <2.0 indicates adequate [...] Escamilla APRN HEMATOLOGY ORDERABLES Performing Organization Address City/[facility]/ZIP Code Phon e Number [place] [phone] Platelet count (02/06/2022 11:30 AM EDT) athologist Signature Platelets 164 145 - 357 [facility] x10(3)/[facility] LABORATORY Plat Immature 4.2 0.0 - 7.4 [facility] % % [facility] Comment: Limitation of the Immature Platelet Frac tion (IPF)-May be less reliable when the platelet count is less than 80r579/u L due to statistical imprecision. The IPF [...] in a decreased state of production. References: [employer] The Clinical Value of the Immature Platelet Fraction (IPF) in Cell Recovery Document Number [id number] 12/2010 [employer] The Role of the Imm ature [...] City/State/ZIP Code Ph[place] [address] (ABNORMAL) Hematocrit (02/06/2022 11:30 AM EDT) athologist Signature Hematocrit 24.7 (L) 40.5 - [facility] 48.5 % [facility] Specimen Anatomical Collection Method Collection Time Receive d Time (Source) Location / / Volume Laterality Blood 02/06/2022 11:30 02/06/2022 AM EDT 11:36 AM EDT Resulting Agency Comment Spec In Lab Jeanette Escamilla APRN HEMATOLOGY ORDERABLES Performing Organization Address City/[facility]/ZIP Code Phon e Number [address] (ABNORMAL) Hemoglobin (02/06/2022 11:30 AM EDT) P athologist Signature Hemoglobin 8.7 (L) 13.7 - 16.5 [facility] g/dL [facility] Specimen Anatomical Collection Method Collection Time Receive d Time (Source) Location / / Volume Laterality Blood 02/06/2022 11:30 02/06/2022 AM EDT 11:36 AM EDT Resulting Agency Comment Spec In Lab Jeanette Escamilla APRN HEMATOLOGY ORDERABLES Performing Organization Address City/[facility]/[place] [address] (ABNORMAL) Sodium (02/06/2022 11:30 AM EDT) P athologist Signature Sodium 122 (L) 135 - 145 [facility] mmol/L [facility] Specimen Anatomical Collection Method Collection Time Receive d Time (Source) Location / / Volume Laterality Blood 02/06/2022 11:30 02/06/2022 AM EDT 11:36 AM EDT Resulting Agency Comment Spec In Lab Parrish Betancourt MD CHEMISTRY ORDERABLES Performing Organization Address City/[facility]/ZIP Code Phon e Number [address] Prepare RBC (02/06/2022 10:35 AM EDT) P athologist Signature Dispensed? Yes [facility] Specimen Anatomical Collection Method Collection Time Receive d Time (Source) Location / / Volume Laterality Blood 02/06/2022 10:35 02/06/2022 AM EDT 10:32 AM EDT Jeanette Escamilla APRN BLOOD BANK ORDERABLES Performing Organization Address City/[facility]/[place] [address] Fibrinogen (02/06/2022 9:35 AM EDT) athologist Signature Fibrinogen 279 200 - 393 [facility] mg/dL [facility] Comment: A fibrinogen level >100 mg/dL is adequat e for hemostasis in most patients without underlying bleeding disorders. Specimen Anatomical Collection Method Collection Time Receive d Time (Source) Location / / Volume Laterality Blood 02/06/2022 9:35 AM 9:44 EDT AM EDT Resulting Agency Comment Spec In Lab Jeanette Martinez Escamilla ASSISTANT PROFESSOR OF SOCIOLOGY HEMATOLOGY ORDERABLES Performing Organization Address City/[facility]/ZIP Code Phon e Number [address] Prothrombin Time (02/06/2022 9:35 AM EDT) athologist Signature PT 11.4 9.4 - 12.5 [facility] LABORATORY INR 1.0 [facility] Comment: An INR <2.0 indicates adequate [...] Agency Comment Spec In Lab Jeanette Escamilla ASSISTANT PROFESSOR OF SOCIOLOGY HEMATOLOGY ORDERABLES Performing Organization Address [facility] [place] [address] Platelet count (02/06/2022 9:35 AM EDT) athologist Signature Platelets 174 145 - 357 [facility] x10(3)/[facility] LABORATORY Plat Immature 4.6 0.0 - 7.4 [facility] MANDO % % [facility] Comment: Limitation of the Immature Platelet Frac tion (IPF)-May be less reliable when the platelet count is less than 19h519/u L due to statistical imprecision. The IPF [...] in a decreased state of production. References: [employer] The Clinical Value of the Immature Platelet Fraction (IPF) in Cell Recovery Document Number [id number] 12/2010 [employer] The Role of the Imm ature Platelet Fraction (IPF) in the Differential Diagnosis of Thrombocytopen ia, Document [id number] V05 P012/12 Specimen Anatomical Collection Method Collection Time Receive d Time (Source) Location / / Volume Laterality Blood 02/06/2022 9:35 AM 2 9:44 EDT AM EDT Resulting Agency Comment Spec In Lab Jeanette Escamilla APRN HEMATOLOGY ORDERABLES Performing Organization Address City/[facility]/ZIP Code Phon e Number [address] (ABNORMAL) Hematocrit (02/06/2022 9:35 AM EDT) P athologist Signature Hematocrit 25.9 (L) 40.5 - [facility] 48.5 % [facility] Specimen Anatomical Collection Method Collection Time Receive d Time (Source) Location / / Volume Laterality Blood 02/06/2022 9:35 AM 2 9:44 EDT AM EDT Resulting Agency Comment Spec In Lab Jeanette Escamilla APRN HEMATOLOGY ORDERABLES Performing Organization Address City/[facility] Phon e Number [address] (ABNORMAL) Hemoglobin (02/06/2022 9:35 AM EDT) P athologist Signature Hemoglobin 9.0 (L) 13.7 - 16.5 [facility] g/dL [facility] Specimen Anatomical Collection Method Collection Time Receive d Time (Source) Location / / Volume Laterality Blood 02/06/2022 9:35 AM 9:44 EDT AM EDT Resulting Agency Comment Spec In Lab Jeanette Escamilla KATERYNA HEMATOLOGY ORDERABLES Performing Organization Address City/State/[place] [address] Transfuse RBC (02/06/2022 9:29 [...] Signature pH Art 7.46 (H) 7.35 - [facility] 7.45 [facility] pCO2 Art 31 (L) 35 - 45 [facility] mmHg [facility] pO2 Art 89 85 - 104 [facility] LABORATORY HCO3 Art 21.5 20.0 - [facility] 26.0 [facility] mmol/L [facility] LABORATORY BE Art -2.3 -3.0 - 3.0 [facility] mmol/L [facility] Hgb Blood Gas 9.5 (L) 13.7 - [facility] 16.5 g/dL [facility] O2HB Art 95.5 94.0 - [facility] 97.0 % [facility] COHB Art 0.3 % [facility] Comment: Nonsmokers: 0.5-1.5% COHB Smokers: Variable, but usually less than 10% Toxic: 20-30% COHB Lethal: Greater than 60% COHB METHB Art 0.8 <=1.5 % [facility] Na Whole Blood 115 (Critical) 135 - 145 mmol/L [facility] Comment: Noted by instrument maintenance supervisor. K Whole Blood 5.7 (H) 3.5 - 5.0 mmol/L [facility] Comment: Please note: Patients with WBC >100,000 may have falsely elevated Potassium levels. Contact the Clinical Chemistry L aboratory if there are any questions. ICa Whole Blood 0.93 (L) 1.15 - 1.33 mmol/L [facility] Comment: Note: ??Total bilirubin higher than 20 m g/dL may lead to falsely low ionized calcium. CL Whole Blood 92 (L) 98 - 107 mmol/L [facility] Gluc Whole Bld 138 65 - 199 mg/dL [facility] Comment: Diabetes: >=200 mg/dL plus symp toms. Lactate WB 1.7 0.5 - 2.2 mmol/L [facility] FIO2 Art 21 % [facility] PF Ratio Art [address] [facility] LAB[facility] Specimen Anatomical Collection Method Collection Time Receive d Time (Source) Location / / Volume Laterality Blood 02/06/2022 9:06 AM 2 9:06 EDT AM EDT Dunia Han DO CHEMISTRY ORDERABLES Performing Organization Address City/[facility]/ZIP Code Phon e Number [address] (ABNORMAL) Phosphorus (02/06/2022 9:00 AM EDT) P athologist Signature Phosphorus 7.1 (H) 2.5 - 4.5 [facility] mg/dL [facility] Specimen Anatomical Collection Method Collection Time Receive d Time (Source) Location / / Volume Laterality Blood 02/06/2022 9:00 AM 2 9:04 EDT AM EDT Resulting Agency Comment Spec In Lab Angelina Reynoso MD CHEMISTRY ORDERABLES Performing Organization Address City/State/ZIP Code Phon e Number [address] Magnesium (02/06/2022 9:00 AM EDT) P athologist Signature Magnesium 0.99 0.69 - 1.07 [facility] mmol/L [facility] Specimen Anatomical Collection Method Collection Time Receive d Time (Source) Location / / Volume Laterality Blood 02/06/2022 9:00 AM 9:04 EDT AM EDT Resulting Agency Comment Spec In Lab Angelina Reynoso MD CHEMISTRY ORDERABLES Performing Organization Address City/[facility]/ZIP Code Phon e Number [address] (ABNORMAL) Creatinine (02/06/2022 9:00 AM EDT) Analysis Performed At Patho logist Time Signature Creatinine 4.64 (H) 0.80 - [facility] 1.50 mg/dL [facility] Estimated GFR 16 (L) >=60 [facility] [place] mL/min/1.7 [facility] 3 ?? [facility] Comment: This patient's estimated GFR [...] Organization Address City/State/ZIP Code Phon e Number [address] (ABNORMAL) BUN (02/06/2022 9:00 AM EDT) P athologist Signature BUN 44 (H) 10 - 20 [facility] mg/dL [facility] Specimen Anatomical Collection Method Collection Time Receive d Time (Source) Location / / Volume Laterality Blood 02/06/2022 9:00 AM 2 9:04 EDT AM EDT Resulting Agency Comment Spec In Lab Angelina Reynoso MD CHEMISTRY ORDERABLES Performing Organization Address City/[facility]/[place] [address] (ABNORMAL) Electrolytes panel (02/06/2022 9:00 AM EDT) athologist Signature Sodium 123 (L) 135 - 145 [facility] mmol/L [facility] Potassium 6.0 (H) 3.5 - 5.0 [facility] mmol/L [facility] Comment: Please note: ??Patients with WBC >100,00 0 may have falsely elevated Potassium levels. ??For accurate Potassium quantif ication in these patients send serum separator tube (gold top) for subsequent determinations. ??Contact the Clinical Chemistry Laboratory if there are any qu estions. Chloride 91 (L) 98 - 107 mmol/L [facility] CO2 23 22 - 31 mmol/L [facility] Anion Gap 9 5 - 15 mmol/L [facility] Specimen Anatomical Collection Method Collection Time Receive d Time (Source) Location / / Volume Laterality Blood 02/06/2022 9:00 AM 2 9:04 EDT AM EDT Resulting Agency Comment Spec In Lab Angelina Reynoso MD CHEMISTRY ORDERABLES Performing Organization Address City/[facility]/[place] [address] Transfuse RBC (02/06/2022 8:38 AM EDT) Dunia Han DO NURSING TREATMENT ORDERAB LES - BLOOD ADMIN POCT Glucose (02/06/2022 7:47 AM EDT) athologist Signature POC Glucose 149 65 - 199 [facility] mg/dL [facility] Comment: Supplemental ranges: <140 mg/dL before meals <180 mg/dL all other times of the day Specimen Anatomical Collection Method Collection Time Receive d Time (Source) Location / / Volume Laterality Blood 02/06/2022 7:47 AM 2 7:47 EDT AM EDT Dunia Han DO POINT OF CARE TEST ORDERA BLES Performing Organization Address City/[facility]/ZIP Code Phon e Number [address] Prepare RBC (02/06/2022 7:40 AM EDT) athologist Signature Dispensed? Yes [facility] Specimen Anatomical Collection Method Collection Time Receive d Time (Source) Location / / Volume Laterality Blood 02/06/2022 7:40 AM 2 7:37 EDT AM EDT Dunia Han DO BLOOD BANK ORDERABLES Performing Organization Address City/[facility] [place] [address] (ABNORMAL) Basic Metabolic Panel (non-fasting) (02/06/2022 7:40 AM EDT) P athologist Signature Glucose Lvl 138 65 - 199 [facility] mg/dL [facility] Comment: Diabetes: >=200 mg/dL plus symp toms BUN 44 (H) 10 - 20 mg/dL [facility] Creatinine 4.52 (H) 0.80 - 1.50 mg/dL [facility] Sodium 123 (L) 135 - 145 mmol/L [facility] Potassium 5.4 (H) 3.5 - 5.0 mmol/L [facility] Comment: Please note: ??Patients with WBC >100,00 0 may have falsely elevated Potassium levels. ??For accurate Potassium quantif ication in these patients send serum separator tube (gold top) for subsequent determinations. ??Contact the Clinical Chemistry Laboratory if there are any qu estions. Chloride 91 (L) 98 - 107 mmol/L [facility] CO2 23 22 - 31 mmol/L [facility] Anion Gap 9 5 - 15 mmol/L [facility] Calcium 6.7 (Critical) 8.5 - 10.5 mg/dL [facility] Comment: Called by: , Read back by: Alden Colindres, Date/Time:02/06/22 09:21. Estimated GFR 17 (L) >=60 mL/min/1.73 m?? [facility] Comment: This patient's estimated [...] Organization Address City/State/[place] [address] (ABNORMAL) BLOOD GAS 2 VENOUS (02/06/2022 6:19 AM EDT) P athologist Signature pH Honorio 7.40 7.32 - [facility] 7.42 [facility] pCO2 [place] 40 (L) 41 - 51 [facility] LABORATORY pO2 [place] 31 25 - 40 [facility] LABORATORY HCO3 Honor[place] 24.2 mmol/L [facility] BE Honorio -0.5 mmol/L [facility] Hgb Blood Gas 8.2 (L) 13.7 - [facility] 16.5 g/dL [facility] O2HB [place] 65.2 % [facility] COHB Honorio 1.0 % [facility] Comment: Nonsmokers: 0.5-1.5% COHB Smokers: Variable, but usually less than 10% Toxic: 20-30% COHB Lethal: Greater than 60% COHB METHB Honorio 0.9 <=1.5 % [facility] Na Whole Blood 117 (Critical) 135 - 145 mmol/L [facility] Comment: Noted by instrument maintenance supervisor. K Whole Blood 5.2 (H) 3.5 - 5.0 mmol/L [facility] Comment: Please note: Patients with WBC >100,000 may have falsely elevated Potassium levels. Contact the Clinical Chemistry L aboratory if there are any questions. ICa Whole Blood 0.96 (L) 1.15 - 1.33 mmol/L [facility] Comment: Note: ??Total bilirubin higher than 20 m g/dL may lead to falsely low ionized calcium. CL Whole Blood 91 (L) 98 - 107 mmol/L [facility] Gluc Whole Bld 113 65 - 199 mg/dL [facility] Comment: Diabetes: >=200 mg/dL plus symp toms Lactate WB 1.3 0.5 - 2.2 mmol/L [facility] BGas Source Venous [facility]ORY Specimen Anatomical Collection Method Collection Time Receive d Time (Source) Location / / Volume Laterality Blood 02/06/2022 6:19 AM 2 6:19 EDT AM EDT Dunia Han DO CHEMISTRY ORDERABLES Performing Organization Address City/[facility]/ZIP [facility] [place] [address] Fibrinogen (02/06/2022 6:16 AM EDT) P athologist Signature Fibrinogen 294 200 - 393 [facility] mg/dL [facility] Comment: A fibrinogen level >100 mg/dL is adequat e for hemostasis in most patients without underlying bleeding disorders. Specimen Anatomical Collection Method Collection Time Receive d Time (Source) Location / / Volume Laterality Blood 02/06/2022 6:16 AM 2 6:20 EDT AM EDT Resulting Agency Comment Spec In Lab Danielle Ramirez MD HEMATOLOGY ORDERABLES Performing Organization Address City/State/[place] [address] Prothrombin Time (02/06/2022 6:16 AM EDT) athologist Signature PT 11.6 9.4 - 12.5 [facility] LABORATORY INR 1.0 [facility] Comment: An INR <2.0 indicates adequate [...] Ramirez MD HEMATOLOGY ORDERABLES Performing Organization Address [facility]/ZIP Code Phon e Number [place] [phone] [facility] LABORATORY Drive Platelet count (02/06/2022 6:16 AM EDT) athologist Signature Platelets 185 145 - 357 [facility] x10(3)/[facility] LABORATORY Plat Immature 2.7 0.0 - 7.4 [facility] % % [facility] Comment: Limitation of the Immature Platelet Frac tion (IPF)-May be less reliable when the platelet count is less than 58u623/u L due to statistical imprecision. The IPF [...] in a decreased state of production. References: [employer] The Clinical Value of the Immature Platelet Fraction (IPF) in Cell Recovery Document Number [id number] 12/2010 [employer] The Role of the Imm ature Platelet Fraction (IPF) in the Differential Diagnosis of Thrombocytopen ia, Document [id number] V05/07/14 P0514 Specimen Anatomical Collection Method Collection Time Receive d Time (Source) Location / / Volume Laterality Blood 02/06/2022 6:16 AM 2 6:20 EDT AM EDT Resulting Agency Comment Spec In Lab Danielle Ramirez MD HEMATOLOGY ORDERABLES Performing Organization Address City/[facility]/[place] [address] (ABNORMAL) Hematocrit (02/06/2022 6:16 AM EDT) P athologist Signature Hematocrit 20.5 (L) 40.5 - [facility] 48.5 % [facility] Specimen Anatomical Collection Method Collection Time Receive d Time (Source) Location / / Volume Laterality Blood 02/06/2022 6:16 AM 2 6:20 EDT AM EDT Resulting Agency Comment Spec In Lab Danielle Ramirez MD HEMATOLOGY ORDERABLES Performing Organization Address City/[facility]/[place] [address] (ABNORMAL) Hemoglobin (02/06/2022 6:16 AM EDT) P athologist Signature Hemoglobin 7.5 (L) 13.7 - 16.5 [facility] g/[facility] Specimen Anatomical Collection Method Collection Time Receive d Time (Source) Location / / Volume Laterality Blood 02/06/2022 6:16 AM 2 6:20 EDT AM EDT Resulting Agency Comment Spec In Lab Danielle Ramirez MD HEMATOLOGY ORDERABLES Performing Organization Address City/[facility]/[place] [address] (ABNORMAL) BLOOD GAS 2 ARTERIAL (02/06/2022 6:14 AM EDT) Analysis Performed At Patho logist Time Signature pH Art 7.47 (H) 7.35 - [facility] 7.45 [facility] pCO2 Art 33 (L) 35 - 45 [facility] mmHg [facility] pO2 Art 83 (L) 85 - 104 [facility] LABORATORY HCO3 Art 23.3 20.0 - [facility] 26.0 [facility] mmol/L [facility] BE Art -0.3 -3.0 - 3.0 [facility] mmol/L [facility] Hgb Blood Gas 8.4 (L) 13.7 - [facility] 16.5 g/dL [facility] O2HB Art 94.3 94.0 - [facility] 97.0 % [facility] COHB Art 0.3 % [facility] Comment: Nonsmokers: 0.5-1.5% COHB Smokers: Variable, but usually less than 10% Toxic: 20-30% COHB Lethal: Greater than 60% COHB METHB Art 1.0 <=1.5 % [facility] Na Whole Blood 117 (Critical) 135 - 145 mmol/L [facility] Comment: Noted by instrument maintenance supervisor. K Whole Blood 5.3 (H) 3.5 - 5.0 mmol/L [facility] Comment: Please note: Patients with WBC >100,000 may have falsely elevated Potassium levels. Contact the Clinical Chemistry L aboratory if there are any questions. ICa Whole Blood 0.96 (L) 1.15 - 1.33 mmol/L [facility] Comment: Note: ??Total bilirubin higher than 20 m g/dL may lead to falsely low ionized calcium. CL Whole Blood 91 (L) 98 - 107 mmol/L [facility] Gluc Whole Bld 117 65 - 199 mg/dL [facility] Comment: Diabetes: >=200 mg/dL plus symp toms. Lactate WB 1.3 0.5 - 2.2 mmol/L [facility] LABORATORY FIO2 Art 21 % [facility] LABORATORY PF Ratio Art [address] [facility] Specimen Anatomical Collection Method Collection Time Receive d Time (Source) Location / / Volume Laterality Blood 02/06/2022 6:14 AM 2 6:14 EDT AM EDT Dunia Han DO CHEMISTRY ORDERABLES Performing Organization Address City/[facility]/[place] [address] Transfuse RBC (02/06/2022 6:01 AM EDT) Dunia Han DO NURSING TREATMENT ORDERAB LES - BLOOD ADMIN Transfuse RBC (02/06/2022 6:01 AM EDT) Dunia Han DO NURSING TREATMENT ORDERAB LES - BLOOD ADMIN Blood culture (02/06/2022 6:00 AM EDT) [facility] Method Time Signature Blood Culture No growth JOSH DEL [place]OCK at 5 days. [facility] LABORATORY Specimen Anatomical Collection Method Collection Time Receive d Time (Source) Location / / Volume Laterality Blood 02/06/2022 6:00 AM 2 7:28 EDT AM EDT Resulting Agency Comment Spec In Lab Dunia Han DO MICROBIOLOGY - BLOOD ORDE RABLES Performing Organization Address City/[facility]/[place] [address] Insert Arterial Line (02/06/2022 [...] p lanned procedure. ?? Hand Hygiene: The multimedia production assistant did perform h and hygiene prior to [...] 4:20 AM EDT) athologist Signature Dispensed? Yes [facility]ORATORY Specimen Anatomical Collection Method Collection Time Receive d Time (Source) Location / / Volume Laterality Blood 02/06/2022 4:20 AM 2 4:20 EDT AM EDT Dunia Han DO BLOOD BANK ORDERABLES Performing Organization Address City/State/[place] [address] Scan, Peripheral Blood (02/06/2022 3:48 AM EDT) [facility] gist Method Time Signature Plat Estimate Normal [facility] RBC Morphology Abnormal [facility] Ovalocytes 1-5 /HPF [facility] Glyndon Cells 1-5 /HPF [facility] Specimen Anatomical Collection Method Collection Time Receive d Time (Source) Location / / Volume Laterality Blood 02/06/2022 3:48 AM 2 3:51 EDT AM EDT Resulting Agency Comment Spec In Lab Danielle Ramirez MD HEMATOLOGY ORDERABLES Performing Organization Address City/State/[place] [address] (ABNORMAL) Differential, Automated (02/06/2022 3:48 AM EDT) [facility] Method Time Signature Neutrophils % 56.0 % [facility]ORATORY Neutr Abs (ANC) 10.94 (H) 1.70 - [facility] 6.10 [facility] x10(3)/[facility] LABORATORY Lymphocytes % 11.6 % [facility]OR[facility] Lymphocytes Abs 2.3 0.9 - 3.2 [facility] x10(3)/[facility] LABORATORY Monocytes % 15.0 % [facility] Monocyte Abs 2.9 (H) 0.3 - 0.9 [facility] x10(3)/[facility] LABORATORY Eosinophils % 1.0 % [facility] Eosinophils Abs 0.2 0.0 - 0.4 [facility] x10(3)/[facility] LABORATORY Basophils % 0.6 % [facility] Basophils Abs 0.1 0.0 - 0.1 [facility] x10(3)/[facility] LABORATORY Immature Gran % 15.80 % [facility] Comment: Immature granulocytes(IG's)percentage an d absolute [...] Organization Address City/State/[place] [address] (ABNORMAL) Hemogram (02/06/2022 3:48 AM EDT) [facility] Method Time Signature WBC 19.5 (H) 4.0 - 9.5 [facility] x10(3)/[facility] LABORATORY RBC 2.27 (L) 4.58 - [facility] 5.54 [facility] x10(6)/[facility] LABORATORY Hemoglobin 6.9 (L) 13.7 - [facility] 16.5 g/dL [facility] LABORATORY Hematocrit 19.2 (L) 40.5 - [facility] 48.5 % [facility] LABORATORY MCV 84.6 82.9 - [facility] 93.1 [facility] LABORATORY MCH 30.4 27.5 - [facility] 32.1 pg [facility] LABORATORY MCHC 35.9 (H) 32.0 - [facility] 35.7 g/dL [facility] LABORATORY Platelets 147 145 - 357 [facility] x10(3)/[facility] LABORATORY RDWSD 45.8 (H) 36.0 - [facility] 45.0 [facility] LABORATORY RDWCV 15.1 (H) 11.4 - [facility] 13.8 % [facility] LABORATORY MPV 9.4 7.6 - 12.9 [facility] LABORATORY nRBC % Auto 0.4 % [facility] LABORATORY nRBC Abs Auto 0.080 (H) 0.000 - [facility] 0.000 [facility] x10(3)/[facility] LABORATORY Specimen Anatomical Collection Method Collection Time Receive d Time (Source) Location / / Volume Laterality Blood 02/06/2022 3:48 AM 2 3:51 EDT AM EDT Resulting Agency Comment Spec In Lab Danielle Ramirez MD HEMATOLOGY ORDERABLES Performing Organization Address City/State/[place] [address] (ABNORMAL) BLOOD GAS 2 ARTERIAL (02/06/2022 3:48 AM EDT) P athologist Signature pH Art 7.42 7.35 - [facility] 7.45 [facility] LABORATORY pCO2 Art 40 35 - 45 [facility] mmHg [facility] LABOR[facility]ORY pO2 Art 36 85 - 104 [facility] (Critical) mmHg [facility] Comment: Noted by instrument maintenance supervisor. HCO3 Art 25.7 20.0 - 26.0 mmol/L [facility] LABORAT[facility] BE Art 1.3 -3.0 - 3.0 mmol/L [facility] LABORAT[facility] Hgb Blood Gas 7.9 (L) 13.7 - 16.5 g/dL [facility] LABORAT[facility] O2HB Art 73.5 (L) 94.0 - 97.0 % [facility] LABORATORY COHB Art 0.5 % [facility] Comment: Nonsmokers: 0.5-1.5% COHB Smokers: Variable, but usually less than 10% Toxic: 20-30% COHB Lethal: Greater than 60% COHB METHB Art 1.2 <=1.5 % [facility] Na Whole Blood 118 (Critical) 135 - 145 mmol/L [facility] Comment: Noted by instrument maintenance supervisor. K Whole Blood 5.2 (H) 3.5 - 5.0 mmol/L [facility]OR[facility] Comment: Please note: Patients with WBC >100,000 may have falsely elevated Potassium levels. Contact the Clinical Chemistry L aboratory if there are any questions. ICa Whole Blood 0.93 (L) 1.15 - 1.33 mmol/L [facility] Comment: Note: ??Total bilirubin higher than 20 m g/dL may lead to falsely low ionized calcium. CL Whole Blood 92 (L) 98 - 107 mmol/L [facility] Gluc Whole Bld 122 65 - 199 mg/dL [facility] LABORAT[facility] Comment: Diabetes: >=200 mg/dL plus symp toms. Lactate WB 1.8 0.5 - 2.2 mmol/L [facility]OR[facility] Temp Art 37.0 Celsius [facility] Specimen Anatomical Collection Method Collection Time Receive d Time (Source) Location / / Volume Laterality Blood 02/06/2022 3:48 AM 3:48 EDT AM EDT Dunia Han DO CHEMISTRY ORDERABLES Performing Organization Address City/State/[place] [address] Prepare RBC (02/06/2022 1:20 AM EDT) P athologist Signature Dispensed? Yes [facility]OR[facility] Specimen Anatomical Collection Method Collection Time Receive d Time (Source) Location / / Volume Laterality Blood 02/06/2022 1:20 AM 1:18 EDT AM EDT Dunia Han DO BLOOD BANK ORDERABLES Performing Organization Address City/[facility]/ZIP Code Phon e Number [address] Fibrinogen (02/06/2022 12:50 AM EDT) P athologist Signature Fibrinogen 298 200 - 393 [facility] mg/dL [facility] LAB[facility] Comment: A fibrinogen level >100 mg/dL is adequat e for hemostasis in most patients without underlying bleeding disorders. Specimen Anatomical Collection Method Collection Time Receive d Time (Source) Location / / Volume Laterality Blood 02/06/2022 12:50 02/06/2022 1:04 AM EDT AM EDT Resulting Agency Comment Spec In Lab Danielle Ramirez MD HEMATOLOGY ORDERABLES Performing Organization Address City/[facility]/ZIP Code Phon e Number [address] (ABNORMAL) Prothrombin Time (02/06/2022 12:50 AM EDT) P athologist Signature PT 14.6 (H) 9.4 - 12.5 [facility] LABORATORY INR 1.3 [facility]OR[facility]ORY Comment: An INR <2.0 indicates adequate [...] Organization Address City/State/ZIP Code Phon e Number [address] Platelet count (02/06/2022 12:50 AM EDT) athologist Signature Platelets 202 145 - 357 [facility] x10(3)/[facility] LABORATORY Plat Immature 3.3 0.0 - 7.4 [facility] GILMORE % % [facility] LAB[facility] Comment: Limitation of the Immature Platelet Frac tion (IPF)-May be less reliable when the platelet count is less than 13d373/u L due to statistical imprecision. The IPF [...] in a decreased state of production. References: [employer] The Clinical Value of the Immature Platelet Fraction (IPF) in Cell Recovery Document Number 10-1143 12/2010 [employer] The Role of the Imm ature [...] Organization Address City/State/[place] [address] (ABNORMAL) Hematocrit (02/06/2022 12:50 AM EDT) athologist Signature Hematocrit 13.3 (L) 40.5 - [facility] 48.5 % [facility] LABOR[facility] Specimen Anatomical Collection Method Collection Time Receive d Time (Source) Location / / Volume Laterality Blood 02/06/2022 12:50 02/06/2022 1:04 AM EDT AM EDT Resulting Agency Comment Spec In Lab Danielle Ramirez MD HEMATOLOGY ORDERABLES Performing Organization Address City/State/[place] [address] (ABNORMAL) Hemoglobin (02/06/2022 12:50 AM EDT) athologist Signature Hemoglobin 4.8 13.7 - [facility] (Critical) 16.5 g/dL [facility] Comment: This result has been called [...] Organization Address City/State/[place] [address] (ABNORMAL) Basic Metabolic Panel (non-fasting) (02/06/2022 12:50 AM EDT) athologist Signature Glucose Lvl 177 65 - 199 [facility] mg/dL [facility] LABORATORY Comment: Diabetes: >=200 mg/dL plus symp toms BUN 42 (H) 10 - 20 mg/dL [facility] LABORATORY Creatinine 4.29 (H) 0.80 - 1.50 mg/dL [facility] LABORATORY Sodium 124 (L) 135 - 145 mmol/L [facility] Potassium 5.3 (H) 3.5 - 5.0 mmol/L [facility]ORY Comment: Please note: ??Patients with WBC >100,00 0 may have falsely elevated Potassium levels. ??For accurate Potassium quantif ication in these patients send serum separator tube (gold top) for subsequent determinations. ??Contact the Clinical Chemistry Laboratory if there are any qu estions. Chloride 89 (L) 98 - 107 mmol/L [facility] CO2 24 22 - 31 mmol/L [facility] Anion Gap 11 5 - 15 mmol/L [facility] Calcium 6.5 (Critical) 8.5 - 10.5 mg/dL [facility] Comment: called by bm/read back by bon anton 02/06/22 0147 Estimated GFR 18 (L) >=60 mL/min/1.73 m?? [facility] Comment: This patient's estimated [...] Organization Address City/State/[place] [address] (ABNORMAL) Phosphorus (02/06/2022 12:50 AM EDT) P athologist Signature Phosphorus 6.5 (H) 2.5 - 4.5 [facility] mg/dL [facility] LABOR[facility]ORY Specimen Anatomical Collection Method Collection Time Receive d Time (Source) Location / / Volume Laterality Blood 02/06/2022 12:50 02/06/2022 1:04 AM EDT AM EDT Resulting Agency Comment Spec In Lab Gela Novak MD CHEMISTRY ORDERABLES Performing Organization Address City/State/ZIP Code Phon e Number [address] Magnesium (02/06/2022 12:50 AM EDT) athologist Signature Magnesium 0.88 0.69 - 1.07 [facility] mmol/L [facility] LABORATORY Specimen Anatomical Collection Method Collection Time Receive d Time (Source) Location / / Volume Laterality Blood 02/06/2022 12:50 02/06/2022 1:04 AM EDT AM EDT Resulting Agency Comment Spec In Lab Gela Novak MD CHEMISTRY ORDERABLES Performing Organization Address City/[facility]/ZIP Code Phon e Number [address] Transfuse thawed plasma (02/06/2022 [...] thawed plasma (02/05/2022 11:11 PM EDT) Dunia Han DO NURSING TREATMENT ORDERAB LES - BLOOD ADMIN (ABNORMAL) BLOOD GAS 2 VENOUS (02/05/2022 10:39 PM EDT) athologist Signature pH Honorio 7.40 7.32 - [facility] 7.42 [facility] LABORATORY pCO2 Honorio 34 (L) 41 - 51 [facility] LABORATORY pO2 Honorio 28 25 - 40 [facility] LABORATORY HCO3 Honorio 20.4 mmol/L [facility]ORAT[facility] BE Honorio -4.5 mmol/L [facility] Hgb Blood Gas 8.7 (L) 13.7 - [facility] 16.5 g/dL [facility] LAB[facility] O2HB Honorio 60.3 % [facility] COHB Honorio 0.8 % [facility] Comment: Nonsmokers: 0.5-1.5% COHB Smokers: Variable, but usually less than 10% Toxic: 20-30% COHB Lethal: Greater than 60% COHB METHB Honorio 0.3 <=1.5 % [facility] Na Whole Blood 119 (Critical) 135 - 145 mmol/L [facility] Comment: Noted by instrument maintenance supervisor. K Whole Blood 5.3 (H) 3.5 - 5.0 mmol/L [facility] Comment: Please note: Patients with WBC >100,000 may have falsely elevated Potassium levels. Contact the Clinical Chemistry L aboratory if there are any questions. ICa Whole Blood 0.95 (L) 1.15 - 1.33 mmol/L [facility] Comment: Note: ??Total bilirubin higher than 20 m g/dL may lead to falsely low ionized calcium. CL Whole Blood 93 (L) 98 - 107 mmol/L [facility] Gluc Whole Bld 163 65 - 199 mg/dL [facility] LABORATORY Comment: Diabetes: >=200 mg/dL plus symp toms Lactate WB 1.8 0.5 - 2.2 mmol/L [facility] LABOR[facility] BGas Source Venous [facility] LABORATORY Specimen Anatomical Collection Method Collection Time Receive d Time (Source) Location / / Volume Laterality Blood 02/05/2022 10:39 02/05/2022 PM EDT 10:39 PM EDT Dunia Han DO CHEMISTRY ORDERABLES Performing Organization Address City/State/[place] [address] Transfuse RBC (02/05/2022 10:34 PM EDT) Dilcia Lopez MD NURSING TREATMENT ORDERABLES - BLOOD ADMIN Transfuse RBC (02/05/2022 10:34 PM EDT) Dilcia Lopez MD NURSING TREATMENT ORDERABLES - BLOOD ADMIN (ABNORMAL) Hepatic Function Panel (02/05/2022 9:54 PM EDT) P athologist Signature Total Protein 3.2 (L) 6.1 - 8.0 [facility] g/dL [facility] LABORATORY Albumin 1.4 (L) 3.2 - 5.2 [facility] g/dL [facility] LABORATORY AST 21 0 - 39 [facility] unit/L [facility] ALT <5 0 - 55 [facility] unit/L [facility] LAB[facility]ORY Alk Phos 74 40 - 130 [facility] unit/L [facility] LABORATORY Total 0.4 0.2 - 1.3 [facility] Bilirubin mg/dL [facility] LABORATORY Bili, Direct 0.3 0.0 - 0.3 [facility] mg/dL [facility] LABORATORY Specimen Anatomical Collection Method Collection Time Receive d Time (Source) Location / / Volume Laterality Blood 02/05/2022 9:54 PM EDT 10:31 PM EDT Resulting Agency Comment Spec In Lab Dunia Han DO CHEMISTRY ORDERABLES Performing Organization Address City/State/[place] [address] (ABNORMAL) Basic Metabolic Panel (non-fasting) (02/05/2022 9:54 PM EDT) athologist Signature Glucose Lvl 161 65 - 199 [facility] mg/dL [facility] LAB[facility] Comment: Diabetes: >=200 mg/dL plus symp toms BUN 41 (H) 10 - 20 mg/dL [facility] LABOR[facility]ORY Creatinine 4.29 (H) 0.80 - 1.50 mg/dL [facility] LABORATORY Sodium 123 (L) 135 - 145 mmol/L [facility] LAB[facility] Potassium 5.7 (H) 3.5 - 5.0 mmol/L [facility] Comment: Please note: ??Patients with WBC >100,00 0 may have falsely elevated Potassium levels. ??For accurate Potassium quantif ication in these patients send serum separator tube (gold top) for subsequent determinations. ??Contact the Clinical Chemistry Laboratory if there are any qu estions. Chloride 92 (L) 98 - 107 mmol/L [facility] CO2 23 22 - 31 mmol/L [facility] Anion Gap 8 5 - 15 mmol/L [facility] Calcium 6.2 (Critical) 8.5 - 10.5 mg/dL [facility] Comment: called by bm/read back by bon anton 02/05/22 1530 Estimated GFR 18 (L) >=60 mL/min/1.73 m?? [facility] Comment: This patient's estimated [...] Organization Address City/State/[place] [address] Transfuse RBC (02/05/2022 9:25 PM EDT) Dilcia Lopez MD NURSING TREATMENT ORDERABLES - BLOOD ADMIN Transfuse RBC (02/05/2022 9:25 PM EDT) Dilcia Lopez MD NURSING TREATMENT ORDERABLES - BLOOD ADMIN Prepare thawed plasma (02/05/2022 9:10 PM EDT) P athologist Signature Dispensed? Yes [facility]OR[facility]ORY Specimen Anatomical Collection Method Collection Time Receive d Time (Source) Location / / Volume Laterality Blood 02/05/2022 9:10 PM 2 9:08 EDT PM EDT Dilcia Lopez MD BLOOD BANK ORDERABLES Performing Organization Address City/[facility]/[place] [address] Transfuse RBC (02/05/2022 8:58 PM EDT) Dilcia Lopez MD NURSING TREATMENT ORDERABLES - BLOOD ADMIN Transfuse RBC (02/05/2022 8:58 PM EDT) Dilcia Lopez MD NURSING TREATMENT ORDERABLES - BLOOD ADMIN Prepare RBC (02/05/2022 8:50 PM EDT) P athologist Signature Dispensed? Yes [facility]OR[facility]ORY Specimen Anatomical Collection Method Collection Time Receive d Time (Source) Location / / Volume Laterality Blood 02/05/2022 8:50 PM 2 8:50 EDT PM EDT Dilcia Lopez MD BLOOD BANK ORDERABLES Performing Organization Address City/[facility]/[place] [address] Prepare RBC (02/05/2022 8:40 PM EDT) P athologist Signature Dispensed? Yes [facility]OR[facility]ORY Specimen Anatomical Collection Method Collection Time Receive d Time (Source) Location / / Volume Laterality Blood 02/05/2022 8:40 PM 2 8:38 EDT PM EDT Dilcia Lopez MD BLOOD BANK ORDERABLES Performing Organization Address City/[facility]/[place] [address] (ABNORMAL) Prothrombin Time (02/05/2022 8:35 PM EDT) P athologist Signature PT 56.2 (H) 9.4 - 12.5 [facility] LABORATORY INR 4.9 [facility]ORY Comment: An INR <2.0 indicates adequate [...] Lopez MD HEMATOLOGY ORDERABLES Performing Organization Address City/[facility]/ZIP Code Phon e Number [address] Fibrinogen (02/05/2022 8:35 PM EDT) P athologist Signature Fibrinogen 314 200 - 393 [facility] mg/dL [facility] LAB[facility]ORY Comment: A fibrinogen level >100 mg/dL is adequat e for hemostasis in most patients without underlying bleeding disorders. Specimen Anatomical Collection Method Collection Time Receive d Time (Source) Location / / Volume Laterality Blood 02/05/2022 8:35 PM 2 8:45 EDT PM EDT Resulting Agency Comment Spec In Lab Dilcia Lopez MD HEMATOLOGY ORDERABLES Performing Organization Address City/[facility]/ZIP Code Phon e Number [address] Prepare RBC (02/05/2022 7:55 PM EDT) P athologist Signature Dispensed? Yes [facility]ORATORY Specimen Anatomical Collection Method Collection Time Receive d Time (Source) Location / / Volume Laterality Blood 02/05/2022 7:55 PM 2 7:53 EDT PM EDT Dilcia Lopez MD BLOOD BANK ORDERABLES Performing Organization Address [facility] Phon e Number [address] (ABNORMAL) Differential, Automated (02/05/2022 7:50 PM EDT) Patholo gist Method Time Signature Neutrophils % 66.9 % [facility] LABORATORY Neutr Abs (ANC) 15.42 (H) 1.70 - [facility] 6.10 [facility] x10(3)/[facility] LABORATORY Lymphocytes % 9.1 % [facility] LABORATORY Lymphocytes Abs 2.1 0.9 - 3.2 [facility] x10(3)/[facility] LABORATORY Monocytes % 11.5 % [facility] LABORATORY Monocyte Abs 2.7 (H) 0.3 - 0.9 [facility] x10(3)/[facility] LABORATORY Eosinophils % 0.4 % [facility] LABORATORY Eosinophils Abs 0.1 0.0 - 0.4 [facility] x10(3)/[facility] LABORATORY Basophils % 0.3 % [facility] LABORATORY Basophils Abs 0.1 0.0 - 0.1 [facility] x10(3)/[facility] LABORATORY Immature Gran % 11.80 % [facility]ORATORY Comment: Immature granulocytes(IG's)percentage an d absolute [...] Organization Address City/State/[place] [address] (ABNORMAL) Hemogram (02/05/2022 7:50 PM EDT) P athologist Signature WBC 23.1 (H) 4.0 - 9.5 [facility] x10(3)/[facility] LABORATORY RBC 1.62 (L) 4.58 - [facility] 5.54 [facility] x10(6)/[facility] LABORATORY Hemoglobin 4.9 13.7 - [facility] (Critical) 16.5 g/dL [facility] LABORATORY Comment: This result has been called to SHAHEEN GARZA by Graciela Sherman on 02 05 2022 at 2034, and has been read back. Hematocrit 13.7 (L) 40.5 - 48.5 % [facility] LABORATORY MCV 84.6 82.9 - 93.1 fL [facility] Comment: This result has been called to SHAHEEN GARZA by Graciela Sherman on 02 05 2022 at 2034, and has been read back. MCH 30.2 27.5 - 32.1 pg [facility] LABORATORY MCHC 35.8 (H) 32.0 - 35.7 g/dL [facility] LABORATORY Platelets 266 145 - 357 x10(3)/[facility] LABORATORY RDWSD 46.3 (H) 36.0 - 45.0 [facility] LABORATORY RDWCV 15.8 (H) 11.4 - 13.8 % [facility] LABORATORY MPV 10.2 7.6 - 12.9 [facility] LABORATORY nRBC % Auto 0.1 % [facility] LABORATORY nRBC Abs Auto 0.030 (H) 0.000 - 0.000 x10(3)/[facility] LABORATORY Specimen Anatomical Collection Method Collection Time Receive d Time (Source) Location / / Volume Laterality Blood 02/05/2022 7:50 PM 8:09 EDT PM EDT Resulting Agency Comment Spec In Lab Dilcia Lopez MD HEMATOLOGY ORDERABLES Performing Organization Address City/State/[place] [address] Blood culture (02/05/2022 6:41 PM EDT) [facility] gist Method Time Signature Blood Culture No growth JOSH GILMORE at 5 days. [facility] LABORATORY Specimen Anatomical Collection Method Collection Time Receive d Time (Source) Location / / Volume Laterality Blood 02/05/2022 6:41 PM 2 8:46 EDT PM EDT Comment: R FA Resulting Agency Comment Spec In Lab Dilcia Lopez MD MICROBIOLOGY - BLOOD ORDERAB LES Performing Organization Address City/[facility]/[place] [address] (ABNORMAL) Hemoglobin (02/05/2022 5:20 PM EDT) P athologist Signature Hemoglobin 7.1 (L) 13.7 - 16.5 [facility] LABOR[facility]ORY Specimen Anatomical Collection Method Collection Time Receive d Time (Source) Location / / Volume Laterality Blood 02/05/2022 5:20 PM 2 5:30 EDT PM EDT Resulting Agency Comment Spec In Lab Dilcia Lopez MD HEMATOLOGY ORDERABLES Performing Organization Address City/[facility]/[place] [address] Prepare RBC (02/05/2022 2:20 PM EDT) P athologist Signature Dispensed? Yes [facility] LABORATORY Specimen Anatomical Collection Method Collection Time Receive d Time (Source) Location / / Volume Laterality Blood 02/05/2022 2:20 PM 2 2:16 EDT PM EDT Tom Valdovinos MD BLOOD BANK ORDERABLES Performing Organization Address City/[facility]/[place] [address] (ABNORMAL) Hemoglobin (02/05/2022 9:30 AM EDT) P athologist Signature Hemoglobin 7.0 (L) 13.7 - 16.5 [facility] g/dL [facility] LABOR[facility]ORY Specimen Anatomical Collection Method Collection Time Receive d Time (Source) Location / / Volume Laterality Blood 02/05/2022 9:30 AM 2 9:39 EDT AM EDT Resulting Agency Comment Spec In Lab Dilcia Lopez MD HEMATOLOGY ORDERABLES Performing Organization Address City/State/[place] [address] Transfuse RBC (02/05/2022 6:54 AM EDT) Coty Walton MD NURSING TREATMENT ORDERABLES - BLOOD ADMIN Transfuse RBC (02/05/2022 6:54 AM EDT) Ctoy Walton MD NURSING TREATMENT ORDERABLES - BLOOD ADMIN Transfuse RBC (02/05/2022 5:07 AM EDT) Coty Walton MD NURSING TREATMENT ORDERABLES - BLOOD ADMIN Prepare RBC (02/05/2022 2:35 AM EDT) athologist Signature Dispensed? Yes [facility] LABORATORY Specimen Anatomical Collection Method Collection Time Receive d Time (Source) Location / / Volume Laterality Blood 02/05/2022 2:35 AM 2 2:34 EDT AM EDT Coty Walton MD BLOOD BANK ORDERABLES Performing Organization Address City/State/[place] [address] Type and Screen Validity (02/05/2022 1:50 AM EDT) [facility] MetaJure Method Time Signature T&S only valid [facility] LABORATORY Comment: This Type and Screen result is only valid at the [facility] Specimen Anatomical Collection Method Collection Time Receive d Time (Source) Location / / Volume Laterality Blood 02/05/2022 1:50 AM 2 2:08 EDT AM EDT Resulting Agency Comment Spec In Lab Coty Walton MD BLOOD BANK ORDERABLES Performing Organization Address City/State/ZIP Code Phon e Number [address] ABORH Recheck Status (02/05/2022 1:50 AM EDT) [facility] Meta[employer]ure Method Time Signature ABORH Type Completed [facility] LABORATORY Specimen Anatomical Collection Method Collection Time Receive d Time (Source) Location / / Volume Laterality Blood 02/05/2022 1:50 AM 2 2:08 EDT AM EDT Resulting Agency Comment Spec In Lab Coty Walton MD BLOOD BANK ORDERABLES Performing Organization Address City/[facility]/[place] [address] Antibody screen (02/05/2022 1:50 AM EDT) [facility] Method Time Signature Ab Screen Negative [facility] LABORATORY Expires at 02/08/2022 [facility] [id number] on: [facility] LABORATORY Specimen Anatomical Collection Method Collection Time Receive d Time (Source) Location / / Volume Laterality Blood 02/05/2022 1:50 AM 2 2:08 EDT AM EDT Resulting Agency Comment Spec In Lab Coty Walton MD BLOOD BANK ORDERABLES Performing Organization Address City/[facility]/ZIP Code Phon e Number [address] ABO/Rh Typing (02/05/2022 1:50 AM EDT) athologist Signature ABORh Type A Pos [facility] LABORATORY Specimen Anatomical Collection Method Collection Time Receive d Time (Source) Location / / Volume Laterality Blood 02/05/2022 1:50 AM 2 2:08 EDT AM EDT Resulting Agency Comment Spec In Lab Coty Walton MD BLOOD BANK ORDERABLES Performing Organization Address City/[facility]/[place] [address] (ABNORMAL) Differential, Automated (02/05/2022 12:56 AM EDT) [facility] Method Time Signature Neutrophils % 71.9 % [facility] LABORATORY Neutr Abs (ANC) 21.60 (H) 1.70 - [facility] 6.10 [facility] x10(3)/[facility] LABORATORY Lymphocytes % 8.3 % [facility] LABORATORY Lymphocytes Abs 2.5 0.9 - 3.2 [facility] x10(3)/[facility] LABORATORY Monocytes % 8.8 % [facility] LABORATORY Monocyte Abs 2.6 (H) 0.3 - 0.9 [facility] x10(3)/[facility] LABORATORY Eosinophils % 0.4 % [facility] LABORATORY Eosinophils Abs 0.1 0.0 - 0.4 [facility] x10(3)/[facility] LABORATORY Basophils % 0.3 % [facility] LABORATORY Basophils Abs 0.1 0.0 - 0.1 [facility] x10(3)/[facility] LABORATORY Immature Gran % 10.30 % [facility] LABORATORY Comment: Immature granulocytes(IG's)percentage an d absolute [...] Organization Address City/State/[place] [address] (ABNORMAL) Hemogram (02/05/2022 12:56 AM EDT) P athologist Signature WBC 30.1 4.0 - 9.5 [facility] (Critical) x10(3)/[facility] LABORATORY Comment: This result has been called to WILLIE PAYNE by GAMA THOMPSON on 02 05 2022 at 0137, and has been read back. RBC 1.61 (L) 4.58 - 5.54 x10(6)/[facility] LABORATORY Hemoglobin 5.2 (Critical) 13.7 - 16.5 g/dL [facility] LABORATORY Comment: This result has been called to WILLIE PAYNE by GAMA THOMPSON on 02 05 2022 at 0137, and has been read back. Hematocrit 14.8 (L) 40.5 - 48.5 % [facility] LABORATORY MCV 91.9 82.9 - 93.1 fL [facility] LABORATORY MCH 32.3 (H) 27.5 - 32.1 pg [facility] LABORATORY MCHC 35.1 32.0 - 35.7 g/dL [facility] LABORATORY Platelets 363 (H) 145 - 357 x10(3)/[facility] LABORATORY RDWSD 47.0 (H) 36.0 - 45.0 fL [facility] LABORATORY RDWCV 14.8 (H) 11.4 - 13.8 % [facility] LABORATORY MPV 10.3 7.6 - 12.9 [facility] LABORATORY nRBC % Auto 0.1 % [facility] LABORATORY nRBC Abs Auto 0.020 (H) 0.000 - 0.000 x10(3)/[facility] LABORATORY Specimen Anatomical Collection Method Collection Time Receive d Time (Source) Location / / Volume Laterality Blood 02/05/2022 12:56 02/05/2022 1:20 AM EDT AM EDT Resulting Agency Comment Spec In Lab Dilcia Lopez MD HEMATOLOGY ORDERABLES Performing Organization Address City/State/[place] [address] (ABNORMAL) Basic Metabolic Panel (non-fasting) (02/05/2022 12:56 AM EDT) P athologist Signature Glucose Lvl 125 65 - 199 [facility] mg/dL [facility] LABORATORY Comment: Diabetes: >=200 mg/dL plus symp toms BUN 49 (H) 10 - 20 mg/dL [facility] LABORATORY Creatinine 4.98 (H) 0.80 - 1.50 mg/dL [facility] LABORATORY Sodium 122 (L) 135 - 145 mmol/L [facility] LABORATORY Potassium 5.9 (H) 3.5 - 5.0 mmol/L [facility] LABORATORY Comment: Please note: ??Patients with WBC >100,00 0 may have falsely elevated Potassium levels. ??For accurate Potassium quantif ication in these patients send serum separator tube (gold top) for subsequent determinations. ??Contact the Clinical Chemistry Laboratory if there are any qu estions. Chloride 90 (L) 98 - 107 mmol/L [facility] LABORATORY CO2 24 22 - 31 mmol/L [facility] LABORATORY Anion Gap 8 5 - 15 mmol/L [facility] LABORATORY Calcium 6.4 (Critical) 8.5 - 10.5 mg/dL [facility] LABORATORY Comment: Called by: wesley, Read back by: Jesus Whittaker, Date/Time:02/05/22 02:07. Estimated GFR 15 (L) >=60 mL/min/1.73 m?? [facility] LABORATORY Comment: This patient's estimated [...] Organization Address City/State/[place] [address] (ABNORMAL) Phosphorus (02/05/2022 12:56 AM EDT) P athologist Signature Phosphorus 7.1 (H) 2.5 - 4.5 [facility] mg/dL [facility] LABORATORY Specimen Anatomical Collection Method Collection Time Receive d Time (Source) Location / / Volume Laterality Blood 02/05/2022 12:56 02/05/2022 1:20 AM EDT AM EDT Resulting Agency Comment Spec In Lab Gela Novak MD CHEMISTRY ORDERABLES Performing Organization Address City/[facility]/ZIP Code Phon e Number [address] Magnesium (02/05/2022 12:56 AM EDT) P athologist Signature Magnesium 0.84 0.69 - 1.07 [facility] mmol/L [facility] LABORATORY Specimen Anatomical Collection Method Collection Time Receive d Time (Source) Location / / Volume Laterality Blood 02/05/2022 12:56 02/05/2022 1:20 AM EDT AM EDT Resulting Agency Comment Spec In Lab Gela Novak MD CHEMISTRY ORDERABLES Performing Organization Address City/[facility]/ZIP Code Phon e Number [address] (ABNORMAL) BLOOD GAS 2 VENOUS (02/04/2022 6:43 PM EDT) P athologist Signature pH Honorio 7.34 7.32 - [facility] 7.42 [facility] LABORATORY pCO2 Honorio 43 41 - 51 [facility] LABORATORY pO2 Honorio 34 25 - 40 [facility] LABORATORY HCO3 Honorio 22.6 mmol/L [facility] LABORATORY BE Honorio -3.2 mmol/L [facility] LABORATORY Hgb Blood Gas 7.4 (L) 13.7 - [facility] 16.5 g/dL [facility] LABORATORY O2HB Honorio 58.9 % [facility] LABORATORY COHB Honorio 1.8 % [facility] LABORATORY Comment: Nonsmokers: 0.5-1.5% COHB Smokers: Variable, but usually less than 10% Toxic: 20-30% COHB Lethal: Greater than 60% COHB METHB Honorio 0.3 <=1.5 % [facility] LABORATORY Na Whole Blood 118 (Critical) 135 - 145 mmol/L [facility] LABORATORY K Whole Blood 5.2 (H) 3.5 - 5.0 mmol/L [facility] LABORATORY Comment: Please note: Patients with WBC >100,000 may have falsely elevated Potassium levels. Contact the Clinical Chemistry L aboratory if there are any questions. ICa Whole Blood 0.99 (L) 1.15 - 1.33 mmol/L [facility] LABORATORY Comment: Note: ??Total bilirubin higher than 20 m g/dL may lead to falsely low ionized calcium. CL Whole Blood 92 (L) 98 - 107 mmol/L [facility] LABORATORY Gluc Whole Bld 100 65 - 199 mg/dL [facility] LABORATORY Comment: Diabetes: >=200 mg/dL plus symp toms Lactate WB 1.5 0.5 - 2.2 mmol/L [facility] LABORATORY BGas Source Venous [facility] LABORATORY Specimen Anatomical Collection Method Collection Time Receive d Time (Source) Location / / Volume Laterality Blood 02/04/2022 6:43 PM 2 6:43 EDT PM EDT iDlcia Lopez MD CHEMISTRY ORDERABLES Performing Organization Address City/[facility] Phon e Number [address] Trichomonas Gene Amp ([facility] [place] [place]/CGP/APD/NLH) Urine (02/04/2022 4:20 PM EDT) Analysis Performed At Path logist Time Signature Trich Gene Amp Negative Negative [facility] LABORATORY Comment: The only FDA approved specimen types for this assay are cervix and vaginal. Trich Source Urine [facility] LABORATORY Specimen Anatomical Collection Method Collection Time Receive d Time (Source) Location / / Volume Laterality Urine 02/04/2022 4:20 PM 2 5:03 EDT PM EDT Resulting Agency Comment Spec In Lab Dilcia Lopez MD MICROBIOLOGY - GENERAL ORDER JT Performing Organization Address City/[facility]/ZIP [facility] Phon e Number [address] Chlamydia Gene Amp ([facility] [place] [place]/CGP/APD/NLH) Urine (02/04/2022 4:20 PM EDT) Analysis Performed At Patho logist Time Signature Chlamydia Gene Negative Negative [facility] LABORATORY Comment: The only FDA approved specimen types for this assay are cervical, vaginal, urethral and urine. Non-FDA approved myriam rces are eye, throat and rectal and have been internally validated. Chlamydia Source Urine [facility] LABORATORY Specimen Anatomical Collection Method Collection Time Receive d Time (Source) Location / / Volume Laterality Urine 02/04/2022 4:20 PM 2 5:03 EDT PM EDT Resulting Agency Comment Spec In Lab Dilcia Lopez MD MICROBIOLOGY - GENERAL ORDER JT Performing Organization Address [facility]/[place] [address] GC Gene Amp ([facility] [place] [place]/CGP/APD/NLH) Urine (02/04/2022 4:20 PM EDT) P athologist Signature GC Gene Amp Negative Negative [facility] LABORATORY Comment: The only FDA approved specimen types for this assay are cervical, vaginal, urethral and urine. Non-FDA approved myriam rces are eye, throat and rectal and have been internally validated. GC Source Urine [facility] LABORATORY Specimen Anatomical Collection Method Collection Time Receive d Time (Source) Location / / Volume Laterality Urine 02/04/2022 4:20 PM 2 5:03 EDT PM EDT Resulting Agency Comment Spec In Lab Dilcia Lopez MD MICROBIOLOGY - GENERAL ORDER JT Performing Organization Address City/[facility]/[place] [address] EKG 12 Lead (02/04/2022 6:17 AM EDT) Component Value Ref Range Test Analysis Performed Pathologis t Method Time At Signature Ventricular rate 99 BPM MUSE SYSTEM Atrial Rate 99 BPM MUSE SYSTEM P-R Interval 146 ms MUSE SYSTEM QRS Duration 96 ms MUSE SYSTEM Q-T Interval 336 ms MUSE SYSTEM QTC Calculated 431 ms MUSE SYSTEM (Bezet) Calculated P Holden 37 degrees MUSE SYSTEM Calculated R Holden 16 degrees MUSE SYSTEM Calculated T Holden 14 degrees MUSE SYSTEM INTERPRETATION Normal sinus rhythm MUSE SYSTEM Normal ECG When compared with ECG of 30-JAN-2022 09:18, Nonspecific T wave abnormality, improved in Inferior leads Confirmed by Tucker Beard ([id number]) on 02/04/2022 5:25:0 4 PM Specimen Anatomical Collection Method Collection Time Receive d Time (Source) Location / / Volume Laterality 02/04/2022 6:17 AM 5:25 EDT PM EDT Candida Krishna MD ECG ORDERABLES Performing Organization Address City/State/ZIP Code Phon e Number MUSE SYSTEM (ABNORMAL) Albumin Level (02/04/2022 4:21 AM EDT) P athologist Signature Albumin 1.7 (L) 3.2 - 5.2 [facility] g/dL [facility] LABORATORY Specimen Anatomical Collection Method Collection Time Receive d Time (Source) Location / / Volume Laterality Blood Venous Draw / 02/04/2022 4:21 AM 02/05/20 4:25 Unknown EDT AM EDT Resulting Agency Comment Spec In Lab Candida Krishna MD CHEMISTRY ORDERABLES Performing Organization Address City/State/[place] [address] (ABNORMAL) Differential, Automated (02/04/2022 4:21 AM EDT) Patholo gist Method Time Signature Neutrophils % 71.7 % [facility] LABORATORY Neutr Abs (ANC) 22.88 (H) 1.70 - [facility] 6.10 [facility] x10(3)/[facility] LABORATORY Lymphocytes % 8.4 % [facility] LABORATORY Lymphocytes Abs 2.7 0.9 - 3.2 [facility] x10(3)/[facility] LABORATORY Monocytes % 8.2 % [facility] LABORATORY Monocyte Abs 2.6 (H) 0.3 - 0.9 [facility] x10(3)/[facility] LABORATORY Eosinophils % 1.4 % [facility] LABORATORY Eosinophils Abs 0.4 0.0 - 0.4 [facility] x10(3)/[facility] LABORATORY Basophils % 0.6 % [facility] LABORATORY Basophils Abs 0.2 (H) 0.0 - 0.1 [facility] x10(3)/[facility] LABORATORY Immature Gran % 9.70 % [facility] LABORATORY Comment: Immature granulocytes(IG's)percentage an d absolute [...] Organization Address City/State/[place] [address] (ABNORMAL) Hemogram (02/04/2022 4:21 AM EDT) P athologist Signature WBC 31.9 4.0 - 9.5 [facility] (Critical) x10(3)/[facility] LABORATORY Comment: This result has been called to NIKKI SANZ by Nicki Bazzi on 02 04 2022 at 0434, and has been read back. RBC 2.40 (L) 4.58 - 5.54 x10(6)/[facility] LABORATORY Hemoglobin 7.7 (L) 13.7 - 16.5 g/dL [facility] LABORATORY Hematocrit 21.4 (L) 40.5 - 48.5 % [facility] LABORATORY MCV 89.2 82.9 - 93.1 fL [facility] LABORATORY MCH 32.1 27.5 - 32.1 pg [facility] LABORATORY MCHC 36.0 (H) 32.0 - 35.7 g/dL [facility] LABORATORY Platelets 303 145 - 357 x10(3)/[facility] LABORATORY RDWSD 46.1 (H) 36.0 - 45.0 fL [facility] LABORATORY RDWCV 14.6 (H) 11.4 - 13.8 % [facility] LABORATORY MPV 9.8 7.6 - 12.9 fL [facility] LABORATORY nRBC % Auto 0.0 % [facility] LABORATORY nRBC Abs Auto 0.000 0.000 - 0.000 x10(3)/[facility] LABORATORY Specimen Anatomical Collection Method Collection Time Receive d Time (Source) Location / / Volume Laterality Blood 02/04/2022 4:21 AM 4:24 EDT AM EDT Resulting Agency Comment Spec In Lab Dilcia Lopez MD HEMATOLOGY ORDERABLES Performing Organization Address City/State/[place] [address] (ABNORMAL) Basic Metabolic Panel (non-fasting) (02/04/2022 4:21 AM EDT) athologist Signature Glucose Lvl 100 65 - 199 [facility] mg/dL [facility] LABORATORY Comment: Diabetes: >=200 mg/dL plus symp toms BUN 64 (H) 10 - 20 mg/dL [facility] LABORATORY Creatinine 5.55 (H) 0.80 - 1.50 mg/dL [facility] LABORATORY Comment: result rechecked-DE Sodium 120 (L) 135 - 145 mmol/L [facility] LABORATORY Potassium 5.7 (H) 3.5 - 5.0 mmol/L [facility] LABORATORY Comment: Please note: ??Patients with WBC >100,00 0 may have falsely elevated Potassium levels. ??For accurate Potassium quantif ication in these patients send serum separator tube (gold top) for subsequent determinations. ??Contact the Clinical Chemistry Laboratory if there are any qu estions. Chloride 91 (L) 98 - 107 mmol/L [facility] LABORATORY CO2 19 (L) 22 - 31 mmol/L [facility] LABORATORY Anion Gap 10 5 - 15 mmol/L [facility] LABORATORY Calcium 6.3 (Critical) 8.5 - 10.5 mg/dL [facility] LABORATORY Comment: called by KS/read back by Yessi Esteves / 02/04/22 0513 Estimated GFR 13 (L) >=60 mL/min/1.73 m?? [facility] LABORATORY Comment: This patient's estimated [...] Organization Address City/State/[place] [address] (ABNORMAL) Phosphorus (02/04/2022 4:21 AM EDT) P athologist Signature Phosphorus 7.5 (H) 2.5 - 4.5 [facility] mg/dL [facility] LABORATORY Specimen Anatomical Collection Method Collection Time Receive d Time (Source) Location / / Volume Laterality Blood 02/04/2022 4:21 AM 2 4:24 EDT AM EDT Resulting Agency Comment Spec In Lab Gela Novak MD CHEMISTRY ORDERABLES Performing Organization Address City/State/ZIP Code Phon e Number [address] Magnesium (02/04/2022 4:21 AM EDT) athologist Signature Magnesium 0.88 0.69 - 1.07 [facility] mmol/L [facility] LABORATORY Specimen Anatomical Collection Method Collection Time Receive d Time (Source) Location / / Volume Laterality Blood 02/04/2022 4:21 AM 4:24 EDT AM EDT Resulting Agency Comment Spec In Lab Gela Novak MD CHEMISTRY ORDERABLES Performing Organization Address City/[facility]/ZIP Code Phon e Number [address] Transfuse RBC (02/03/2022 6:36 PM EDT) Dilcia Lopez MD NURSING TREATMENT ORDERABLES - BLOOD ADMIN Transfuse RBC (02/03/2022 6:36 PM EDT) Dilcia Lopez MD NURSING TREATMENT ORDERABLES - BLOOD ADMIN POCT Glucose (02/03/2022 3:40 PM EDT) athologist Signature POC Glucose 127 65 - 199 [facility] mg/dL [facility] LABORATORY Comment: Supplemental ranges: <140 mg/dL before meals <180 mg/dL all other times of the day Specimen Anatomical Collection Method Collection Time Receive d Time (Source) Location / / Volume Laterality Blood 02/03/2022 3:40 PM 3:40 EDT PM EDT Dilcia Lopez MD POINT OF CARE TEST ORDERABLE S Performing Organization Address City/[facility]/ZIP Code Phon e Number [address] Prepare RBC (02/03/2022 3:20 PM EDT) athologist Signature Dispensed? No [facility] LABORATORY Specimen Anatomical Collection Method Collection Time Receive d Time (Source) Location / / Volume Laterality Blood 02/03/2022 3:20 PM 3:19 EDT PM EDT Dilcia Lopez MD BLOOD BANK ORDERABLES Performing Organization Address City/[facility]/[place] [address] (ABNORMAL) Hemogram (02/03/2022 2:15 PM EDT) P athologist Signature WBC 30.1 4.0 - 9.5 [facility] (Critical) x10(3)/[facility] LABORATORY Comment: This result has been called to VINOD WILCOX by Sarah Robison on 02 03 2022 at 1432, and has been read ck. RBC 2.14 (L) 4.58 - 5.54 x10(6)/[facility] LABORATORY Hemoglobin 6.8 (L) 13.7 - 16.5 g/dL [facility] LABORATORY Hematocrit 19.4 (L) 40.5 - 48.5 % [facility] LABORATORY MCV 90.7 82.9 - 93.1 [facility] MCH 31.8 27.5 - 32.1 pg [facility] LABORATORY MCHC 35.1 32.0 - 35.7 g/dL [facility] LABORATORY Platelets 333 145 - 357 x10(3)/[facility] LABORATORY RDWSD 45.9 (H) 36.0 - 45.0 [facility] LABORATORY RDWCV 14.2 (H) 11.4 - 13.8 % [facility] LABORATORY MPV 10.0 7.6 - 12.9 [facility] LABORATORY nRBC % Auto 0.0 % [facility] LABORATORY nRBC Abs Auto 0.000 0.000 - 0.000 x10(3)/[facility] LABORATORY Specimen Anatomical Collection Method Collection Time Receive d Time (Source) Location / / Volume Laterality Blood 02/03/2022 2:15 PM 2 2:21 EDT PM EDT Resulting Agency Comment Spec In Lab Dilcia Lopez MD HEMATOLOGY ORDERABLES Performing Organization Address City/State/[place] [address] Transfuse RBC (02/03/2022 11:43 AM EDT) Raimundo Lara MD NURSING TREATMENT ORDER JT - BLOOD ADMIN Transfuse RBC (02/03/2022 11:43 AM EDT) Raimundo Lara MD NURSING TREATMENT ORDER JT - BLOOD ADMIN POCT Glucose (02/03/2022 11:42 AM EDT) P athologist Signature POC Glucose 129 65 - 199 [facility] mg/dL [facility] LABORATORY Comment: Supplemental ranges: <140 mg/dL before meals <180 mg/dL all other times of the day Specimen Anatomical Collection Method Collection Time Receive d Time (Source) Location / / Volume Laterality Blood 02/03/2022 11:42 02/03/2022 AM EDT 11:42 AM EDT Erika Retana MD POINT OF CARE TEST ORDERABLE S Performing Organization Address City/State/[place] [address] Duplex for DVT, Arm, Unilat (02/03/2022 9:07 AM EDT) Component Value Ref Test Analysis Performed At Patholo gist Range Method Time Signature VB Text Department: Vascular Surgery Lab VASCUBASE Report Patient: [id number] (AMALIAALIX BARRIOS) CPT: 81419 Referring Physician: AGNIESZKA LÓPEZ ?? Phone: Indications: [...] Component Value Ref Test Analysis Performed At [facility] Range Method Time Signature VB Text Department: Vascular Surgery Lab VASCUBASE Report Patient: [id number] (ALIX HOLLAND) CPT: 05139 Referring Physician: AGNIESZKA LÓPEZ ?? Phone: Indications: [...] Retana MD VASCULAR ORDERABLES Performing Organization Address City/[facility]/ZIP Code Phon e Number VASCUBASE POCT Glucose (02/03/2022 8:17 AM EDT) P athologist Signature POC Glucose 128 65 - 199 [facility] mg/dL [facility] LABORATORY Comment: Supplemental ranges: <140 mg/dL before meals <180 mg/dL all other times of the day Specimen Anatomical Collection Method Collection Time Receive d Time (Source) Location / / Volume Laterality Blood 02/03/2022 8:17 AM 8:17 EDT AM EDT Erika Retana MD POINT OF CARE TEST ORDERABLE S Performing Organization Address City/[facility]/ZIP [facility] Phon e Number [address] Prepare RBC (02/03/2022 7:51 AM EDT) P athologist Signature Dispensed? Yes [facility] LABORATORY Specimen Anatomical Collection Method Collection Time Receive d Time (Source) Location / / Volume Laterality Blood No Charge / 02/03/2022 7:51 AM 2 7:51 Unknown EDT AM EDT Resulting Agency Comment Spec In Lab Raimundo Lara MD BLOOD BANK ORDERABLES Performing Organization Address City/[facility]/ZIP Code Phon e Number [address] Prepare RBC (02/03/2022 7:45 AM EDT) P athologist Signature Dispensed? Yes [facility] LABORATORY Specimen Anatomical Collection Method Collection Time Receive d Time (Source) Location / / Volume Laterality Blood 02/03/2022 7:45 AM 2 7:42 EDT AM EDT Raimundo Lara MD BLOOD BANK ORDERABLES Performing Organization Address City/State/[place] [address] (ABNORMAL) Hemoglobin and Hematocrit, blood (02/03/2022 6:47 AM EDT) P athologist Signature Hemoglobin 5.6 13.7 - [facility] (Critical) 16.5 g/dL [facility] LABORATORY Comment: This result has been called to EMANI HESS by Sarah Robison on 02 03 2022 at 0738, and has been read back. Hematocrit 16.0 (L) 40.5 - 48.5 % [facility] LABORATORY Specimen Anatomical Collection Method Collection Time Receive d Time (Source) Location / / Volume Laterality Blood 02/03/2022 6:47 AM 2 7:05 EDT AM EDT Resulting Agency Comment Spec In Lab Raimundo Lara MD HEMATOLOGY ORDERABLES Performing Organization Address City/State/[place] [address] Scan, Peripheral Blood (02/03/2022 4:55 AM EDT) Patholo gist Method Time Signature Plat Estimate Normal [facility] LABORATORY RBC Morphology Abnormal [facility] LABORATORY Macrocytes 1-5 /HPF [facility] LABORATORY Microcytes 1-5 /HPF [facility] LABORATORY Stippled RBCs Present >1/HPF [facility] LABORATORY Specimen Anatomical Collection Method Collection Time Receive d Time (Source) Location / / Volume Laterality Blood 02/03/2022 4:55 AM 2 5:09 EDT AM EDT Resulting Agency Comment Spec In Lab Dimas Hernandez MD HEMATOLOGY ORDERABLES Performing Organization Address City/State/[place] [address] (ABNORMAL) Differential, Automated (02/03/2022 4:55 AM EDT) Patholo gist Method Time Signature Neutrophils % 68.7 % [facility] LABORATORY Neutr Abs (ANC) 21.19 (H) 1.70 - [facility] 6.10 [facility] x10(3)/[facility] LABORATORY Lymphocytes % 10.5 % [facility] LABORATORY Lymphocytes Abs 3.2 0.9 - 3.2 [facility] x10(3)/[facility] LABORATORY Monocytes % 8.7 % [facility] LABORATORY Monocyte Abs 2.7 (H) 0.3 - 0.9 [facility] x10(3)/[facility] LABORATORY Eosinophils % 1.6 % [facility] LABORATORY Eosinophils Abs 0.5 (H) 0.0 - 0.4 [facility] x10(3)/[facility] LABORATORY Basophils % 0.3 % [facility] LABORATORY Basophils Abs 0.1 0.0 - 0.1 [facility] x10(3)/[facility] LABORATORY Immature Gran % 10.20 % [facility] LABORATORY Comment: Immature granulocytes(IG's)percentage an d absolute [...] Organization Address City/State/ZIP Code Phon e Number [place] [id number] [facility] LABORATORY Drive (ABNORMAL) Hemogram (02/03/2022 4:55 AM EDT) P athologist Signature WBC 30.8 4.0 - 9.5 [facility] (Critical) x10(3)/[facility] LABORATORY Comment: This result has been called to HALLEY HO by Maureen Dixon on 02 03 2022 at 0555, and has been read back. RBC 1.72 (L) 4.58 - 5.54 x10(6)/[facility] LABORATORY Hemoglobin 5.6 (Critical) 13.7 - 16.5 g/dL [facility] LABORATORY Comment: This result has been called to HALLEY HO by Maureen Dixon on 02 03 2022 at 0555, and has been read back. Hematocrit 15.9 (L) 40.5 - 48.5 % [facility] LABORATORY MCV 92.4 82.9 - 93.1 [facility] LABORATORY MCH 32.6 (H) 27.5 - 32.1 pg [facility] LABORATORY MCHC 35.2 32.0 - 35.7 g/dL [facility] LABORATORY Platelets 310 145 - 357 x10(3)/[facility] LABORATORY RDWSD 45.4 (H) 36.0 - 45.0 [facility] LABORATORY RDWCV 14.2 (H) 11.4 - 13.8 % [facility] LABORATORY MPV 10.2 7.6 - 12.9 [facility] LABORATORY nRBC % Auto 0.0 % [facility] LABORATORY nRBC Abs Auto 0.000 0.000 - 0.000 x10(3)/[facility] LABORATORY Specimen Anatomical Collection Method Collection Time Receive d Time (Source) Location / / Volume Laterality Blood 02/03/2022 4:55 AM 5:09 EDT AM EDT Resulting Agency Comment Spec In Lab Dimas Hernandez MD HEMATOLOGY ORDERABLES Performing Organization Address City/State/[place] [address] (ABNORMAL) Basic Metabolic Panel (non-fasting) (02/03/2022 4:55 AM EDT) P athologist Signature Glucose Lvl 117 65 - 199 [facility] mg/dL [facility] LABORATORY Comment: Diabetes: >=200 mg/dL plus symp toms BUN 53 (H) 10 - 20 mg/dL [facility] LABORATORY Creatinine 4.40 (H) 0.80 - 1.50 mg/dL [facility] LABORATORY Sodium 123 (L) 135 - 145 mmol/L [facility] LABORATORY Potassium 5.2 (H) 3.5 - 5.0 mmol/L [facility] LABORATORY Comment: Please note: ??Patients with WBC >100,00 0 may have falsely elevated Potassium levels. ??For accurate Potassium quantif ication in these patients send serum separator tube (gold top) for subsequent determinations. ??Contact the Clinical Chemistry Laboratory if there are any qu estions. Chloride 93 (L) 98 - 107 mmol/L [facility] LABORATORY CO2 22 22 - 31 mmol/L [facility] LABORATORY Anion Gap 8 5 - 15 mmol/L [facility] LABORATORY Calcium 6.3 (Critical) 8.5 - 10.5 mg/dL [facility] LABORATORY Comment: Called by: , Read back by: Kerwin George, Date/Time:02/03/22 05:46. Estimated GFR 18 (L) >=60 mL/min/1.73 m?? [facility] LABORATORY Comment: This patient's estimated [...] Han DO CHEMISTRY ORDERABLES Performing Organization Address City/[facility]/ZIP Code Phon e Number [address] (ABNORMAL) Phosphorus (02/03/2022 4:55 AM EDT) P athologist Signature Phosphorus 6.4 (H) 2.5 - 4.5 [facility] mg/dL [facility] LABORATORY Specimen Anatomical Collection Method Collection Time Receive d Time (Source) Location / / Volume Laterality Blood 02/03/2022 4:55 AM 2 5:09 EDT AM EDT Resulting Agency Comment Spec In Lab Gela Novak MD CHEMISTRY ORDERABLES Performing Organization Address [facility]/[place]IP [place] [address] Magnesium (02/03/2022 4:55 AM EDT) P athologist Signature Magnesium 0.84 0.69 - 1.07 [facility] mmol/L [facility] LABORATORY Specimen Anatomical Collection Method Collection Time Receive d Time (Source) Location / / Volume Laterality Blood 02/03/2022 4:55 AM 2 5:09 EDT AM EDT Resulting Agency Comment Spec In Lab Gela Novak MD CHEMISTRY ORDERABLES Performing Organization Address City/[facility]/[place] [address] Vitamin B12 (02/03/2022 4:55 AM EDT) P athologist Signature Vitamin B-12 535 232 - 1,245 [facility] pg/mL [facility] LABORATORY Specimen Anatomical Collection Method Collection Time Receive d Time (Source) Location / / Volume Laterality Blood 02/03/2022 4:55 AM 2 5:09 EDT AM EDT Resulting Agency Comment Spec In Lab Erika Retana MD CHEMISTRY ORDERABLES Performing Organization Address City/[facility]/[place] [address] (ABNORMAL) Folate, serum (02/03/2022 4:55 AM EDT) athologist [facility] Folate Lvl 3.9 (L) 4.8 - 24.2 [facility] ng/mL [facility] LABORATORY Specimen Anatomical Collection Method Collection Time Receive d Time (Source) Location / / Volume Laterality Blood 02/03/2022 4:55 AM 2 5:09 EDT AM EDT Resulting Agency Comment Spec In Lab Erika Retana MD CHEMISTRY ORDERABLES Performing Organization Address City/State/ZIP Code Phon e Number [address] POCT Glucose (02/02/2022 4:08 PM EDT) athologist [facility] POC Glucose 135 65 - 199 [facility] mg/dL [facility] LABORATORY Comment: Supplemental ranges: <140 mg/dL before meals <180 mg/dL all other times of the day Specimen Anatomical Collection Method Collection Time Receive d Time (Source) Location / / Volume Laterality Blood 02/02/2022 4:08 PM 2 4:08 EDT PM EDT Evangelina Flynn MD POINT OF CARE TEST ORDERABLE S Performing Organization Address City/State/[place] [address] (ABNORMAL) Hemogram (02/02/2022 12:40 PM EDT) athologist [facility] WBC 33.6 4.0 - 9.5 [facility] (Critical) x10(3)/[facility] LABORATORY Comment: This result has been called to [facility] by Galdino Bynum on 02 02 2022 at 1255, and has been read back. RBC 2.29 (L) 4.58 - 5.54 x10(6)/[facility] LABORATORY Hemoglobin 7.4 (L) 13.7 - 16.5 g/dL [facility] LABORATORY Hematocrit 20.9 (L) 40.5 - 48.5 % [facility] LABORATORY MCV 91.3 82.9 - 93.1 fL [facility] LABORATORY MCH 32.3 (H) 27.5 - 32.1 pg [facility] LABORATORY MCHC 35.4 32.0 - 35.7 g/dL [facility] LABORATORY Platelets 278 145 - 357 x10(3)/[facility] LABORATORY RDWSD 44.7 36.0 - 45.0 fL [facility] LABORATORY RDWCV 13.9 (H) 11.4 - 13.8 % [facility] LABORATORY MPV 10.2 7.6 - 12.9 fL [facility] LABORATORY nRBC % Auto 0.0 % [facility] LABORATORY nRBC Abs Auto 0.000 0.000 - 0.000 x10(3)/[facility] LABORATORY Specimen Anatomical Collection Method Collection Time Receive d Time (Source) Location / / Volume Laterality Blood 02/02/2022 12:40 02/02/2022 PM EDT 12:47 PM EDT Resulting Agency Comment Spec In Lab Beck Sanz MD HEMATOLOGY ORDERABLES Performing Organization Address City/State/[place] [address] POCT Glucose (02/02/2022 7:57 AM EDT) P athologist Signature POC Glucose 113 65 - 199 [facility] mg/dL [facility] LABORATORY Comment: Supplemental ranges: <140 mg/dL before meals <180 mg/dL all other times of the day Specimen Anatomical Collection Method Collection Time Receive d Time (Source) Location / / Volume Laterality Blood 02/02/2022 7:57 AM 7:57 EDT AM EDT Evangelina Flynn MD POINT OF CARE TEST ORDERABLE S Performing Organization Address City/State/[place] [address] (ABNORMAL) Iron and TIBC (02/02/2022 2:29 AM EDT) Analysis Performed At Patho logist Time Signature Iron 41 (L) 45 - 160 [facility] mcg/dL [facility] LABORATORY TIBC 149 (L) 250 - 450 [facility] mcg/dL [facility] LABORATORY Iron Saturation 28 20 - 50 % [facility] LABORATORY Specimen Anatomical Collection Method Collection Time Receive d Time (Source) Location / / Volume Laterality Blood Venous Draw / 02/02/2022 2:29 AM 02/03/20 2:34 Unknown EDT AM EDT Resulting Agency Comment Spec In Lab Vidhya Peñaloza MD CHEMISTRY ORDERABLES Performing Organization Address City/State/[place] [address] (ABNORMAL) Differential, Automated (02/02/2022 2:29 AM EDT) Patholo gist Method Time Signature Neutrophils % 69.5 % [facility] LABORATORY Neutr Abs (ANC) 21.20 (H) 1.70 - [facility] 6.10 [facility] x10(3)/[facility] LABORATORY Lymphocytes % 11.0 % [facility] LABORATORY Lymphocytes Abs 3.3 (H) 0.9 - 3.2 [facility] x10(3)/[facility] LABORATORY Monocytes % 8.4 % [facility] LABORATORY Monocyte Abs 2.6 (H) 0.3 - 0.9 [facility] x10(3)/[facility] LABORATORY Eosinophils % 1.6 % [facility] LABORATORY Eosinophils Abs 0.5 (H) 0.0 - 0.4 [facility] x10(3)/[facility] LABORATORY Basophils % 0.5 % [facility] LABORATORY Basophils Abs 0.1 0.0 - 0.1 [facility] x10(3)/[facility] LABORATORY Immature Gran % 9.00 % [facility] LABORATORY Comment: Immature granulocytes(IG's)percentage an d absolute [...] / Volume Laterality Blood 02/02/2022 2:29 AM 2:33 EDT AM EDT Resulting Agency Comment Spec In Lab Dimas Hernandez MD HEMATOLOGY ORDERABLES Performing Organization Address City/State/[place] [address] (ABNORMAL) Hemogram (02/02/2022 2:29 AM EDT) athologist Signature WBC 30.5 4.0 - 9.5 [facility] (Critical) x10(3)/[facility] LABORATORY Comment: This result has been called to CARLOS TUBBS by GAMA THOMPSON on 02 02 2022 at 0245, and has been read back. RBC 2.18 (L) 4.58 - 5.54 x10(6)/[facility] LABORATORY Hemoglobin 7.0 (L) 13.7 - 16.5 g/dL [facility] LABORATORY Hematocrit 20.6 (L) 40.5 - 48.5 % [facility] LABORATORY MCV 94.5 (H) 82.9 - 93.1 [facility] LABORATORY MCH 32.1 27.5 - 32.1 pg [facility] LABORATORY MCHC 34.0 32.0 - 35.7 g/dL [facility] LABORATORY Platelets 245 145 - 357 x10(3)/[facility] LABORATORY RDWSD 46.5 (H) 36.0 - 45.0 [facility] LABORATORY RDWCV 13.7 11.4 - 13.8 % [facility] LABORATORY MPV 10.3 7.6 - 12.9 [facility] LABORATORY nRBC % Auto 0.0 % [facility] LABORATORY nRBC Abs Auto 0.000 0.000 - 0.000 x10(3)/[facility] LABORATORY Specimen Anatomical Collection Method Collection Time Receive d Time (Source) Location / / Volume Laterality Blood 02/02/2022 2:29 AM 2 2:33 EDT AM EDT Resulting Agency Comment Spec In Lab Dimas Hernandez MD HEMATOLOGY ORDERABLES Performing Organization Address City/State/[place] [address] (ABNORMAL) Basic Metabolic Panel (non-fasting) (02/02/2022 2:29 AM EDT) athologist Signature Glucose Lvl 107 65 - 199 [facility] mg/dL [facility] LABORATORY Comment: Diabetes: >=200 mg/dL plus symp toms BUN 63 (H) 10 - 20 mg/dL [facility] LABORATORY Creatinine 4.78 (H) 0.80 - 1.50 mg/dL [facility] LABORATORY Sodium 127 (L) 135 - 145 mmol/L [facility] LABORATORY Potassium 5.2 (H) 3.5 - 5.0 mmol/L [facility] LABORATORY Comment: Please note: ??Patients with WBC >100,00 0 may have falsely elevated Potassium levels. ??For accurate Potassium quantif ication in these patients send serum separator tube (gold top) for subsequent determinations. ??Contact the Clinical Chemistry Laboratory if there are any qu estions. Chloride 97 (L) 98 - 107 mmol/L [facility] LABORATORY CO2 20 (L) 22 - 31 mmol/L [facility] LABORATORY Anion Gap 10 5 - 15 mmol/L [facility] LABORATORY Calcium 6.8 (Critical) 8.5 - 10.5 mg/dL [facility] LABORATORY Comment: Called by: sf, Read back by: ashley george, Date/Time:02/02/22 03:11. Estimated GFR 16 (L) >=60 mL/min/1.73 m?? [facility] LABORATORY Comment: This patient's estimated GFR was calcula karina using the 2021 CKD-EPI equation. The estimated GFR can vary from the gusatvo ured GFR by up to 30% in [...] Han DO CHEMISTRY ORDERABLES Performing Organization Address City/[facility]/ZIP Code Phon e Number [address] (ABNORMAL) Phosphorus (02/02/2022 2:29 AM EDT) P athologist Signature Phosphorus 5.7 (H) 2.5 - 4.5 [facility] mg/dL [facility] LABORATORY Specimen Anatomical Collection Method Collection Time Receive d Time (Source) Location / / Volume Laterality Blood 02/02/2022 2:29 AM 2 2:33 EDT AM EDT Resulting Agency Comment Spec In Lab Gela Novak MD CHEMISTRY ORDERABLES Performing Organization Address City/[facility]/[place] [address] Magnesium (02/02/2022 2:29 AM EDT) P athologist Signature Magnesium 0.95 0.69 - 1.07 [facility] mmol/L [facility] LABORATORY Specimen Anatomical Collection Method Collection Time Receive d Time (Source) Location / / Volume Laterality Blood 02/02/2022 2:29 AM 2 2:33 EDT AM EDT Resulting Agency Comment Spec In Lab Gela Novak MD CHEMISTRY ORDERABLES Performing Organization Address City/[facility]/[place] [address] (ABNORMAL) Hemogram (02/01/2022 6:15 PM EDT) P athologist Signature WBC 30.4 4.0 - 9.5 [facility] (Critical) x10(3)/[facility] LABORATORY Comment: This result has been called to FOREST HUFFMAN by Pretty Luna on 02 01 2022 at 1911, and has been read back. RBC 2.33 (L) 4.58 - 5.54 x10(6)/[facility] LABORATORY Hemoglobin 7.7 (L) 13.7 - 16.5 g/dL [facility] LABORATORY Hematocrit 21.9 (L) 40.5 - 48.5 % [facility] LABORATORY MCV 94.0 (H) 82.9 - 93.1 fL [facility] LABORATORY MCH 33.0 (H) 27.5 - 32.1 pg [facility] LABORATORY MCHC 35.2 32.0 - 35.7 g/dL [facility] LABORATORY Platelets 220 145 - 357 x10(3)/[facility] LABORATORY RDWSD 44.9 36.0 - 45.0 [facility] LABORATORY RDWCV 13.3 11.4 - 13.8 % [facility] LABORATORY MPV 10.8 7.6 - 12.9 [facility] LABORATORY nRBC % Auto 0.0 % [facility] LABORATORY nRBC Abs Auto 0.000 0.000 - 0.000 x10(3)/[facility] LABORATORY Specimen Anatomical Collection Method Collection Time Receive d Time (Source) Location / / Volume Laterality Blood 02/01/2022 6:15 PM 6:29 EDT PM EDT Resulting Agency Comment Spec In Lab Jorge L Ernst ASSISTANT PROFESSOR OF SOCIOLOGY HEMATOLOGY ORDERABLES Performing Organization Address City/State/[place] [address] (ABNORMAL) Basic Metabolic Panel (non-fasting) (02/01/2022 6:15 PM EDT) P athologist Signature Glucose Lvl 121 65 - 199 [facility] mg/dL [facility] LABORATORY Comment: Diabetes: >=200 mg/dL plus symp toms BUN 56 (H) 10 - 20 mg/dL [facility] LABORATORY Creatinine 4.21 (H) 0.80 - 1.50 mg/dL [facility] LABORATORY Sodium 127 (L) 135 - 145 mmol/L [facility] LABORATORY Potassium 5.1 (H) 3.5 - 5.0 mmol/L [facility] LABORATORY Comment: Please note: ??Patients with WBC >100,00 0 may have falsely elevated Potassium levels. ??For accurate Potassium quantif ication in these patients send serum separator tube (gold top) for subsequent determinations. ??Contact the Clinical Chemistry Laboratory if there are any qu estions. Chloride 96 (L) 98 - 107 mmol/L [facility] LABORATORY CO2 21 (L) 22 - 31 mmol/L [facility] LABORATORY Anion Gap 10 5 - 15 mmol/L [facility] LABORATORY Calcium 7.2 (L) 8.5 - 10.5 mg/dL [facility] LABORATORY Estimated GFR 19 (L) >=60 mL/min/1.73 m?? [facility] LABORATORY Comment: This patient's estimated [...] In Lab Jorge L J Klever [place] CHEMISTRY ORDERABLES Performing Organization Address City/[facility]/ZIP Code Phon e Number [address] Transfuse RBC (02/01/2022 5:16 PM EDT) Jorge L J Klever [place] NURSING TREATMENT ORDERABLES - BLOOD ADMIN Transfuse RBC (02/01/2022 5:16 PM EDT) Jorge L Melita Klever [place] NURSING TREATMENT ORDERABLES - BLOOD ADMIN (ABNORMAL) C. Difficile Screen (02/01/2022 1:55 PM EDT) [facility] Method Time Signature C Diff Screen Positive (A) Negative [facility] LABORATORY Comment: PCR Pos C. diff?? [...] - GENERAL ORDER JT Performing Organization Address City/[facility]/ZIP Code Phon [place] [address] [facility] [address] Type and Screen Validity (02/01/2022 12:45 PM EDT) [facility] Method Time Signature T&S only valid [facility] LABORATORY Comment: This Type and Screen result is only valid at the [facility] Specimen Anatomical Collection Method Collection Time Receive d Time (Source) Location / / Volume Laterality Blood 02/01/2022 12:45 02/01/2022 PM EDT 12:46 PM EDT Resulting Agency Comment Spec In Lab Jorge L J Klever ASSISTANT PROFESSOR OF SOCIOLOGY BLOOD BANK ORDERABLES Performing Organization Address City/State/[place] [address] ABORH Recheck Status (02/01/2022 12:45 PM EDT) [facility] Method Time Signature ABORH Type Completed [facility] LABORATORY Specimen Anatomical Collection Method Collection Time Receive d Time (Source) Location / / Volume Laterality Blood 02/01/2022 12:45 02/01/2022 PM EDT 12:46 PM EDT Resulting Agency Comment Spec In Lab Jorge L Melita Ernst ASSISTANT PROFESSOR OF SOCIOLOGY BLOOD BANK ORDERABLES Performing Organization Address City/[facility]/[place] [address] Antibody screen (02/01/2022 12:45 PM EDT) [facility] Method Time Signature Ab Screen Negative [facility] LABORATORY Expires at 02/04/2022 [facility] [id number] on: [facility] LABORATORY Specimen Anatomical Collection Method Collection Time Receive d Time (Source) Location / / Volume Laterality Blood 02/01/2022 12:45 02/01/2022 PM EDT 12:46 PM EDT Resulting Agency Comment Spec In Lab Jorge L Ernst ASSISTANT PROFESSOR OF SOCIOLOGY BLOOD BANK ORDERABLES Performing Organization Address City/[facility]/[place] [address] ABO/Rh Typing (02/01/2022 12:45 PM EDT) P athologist Signature ABORh Type A Pos [facility] LABORATORY Specimen Anatomical Collection Method Collection Time Receive d Time (Source) Location / / Volume Laterality Blood 02/01/2022 12:45 02/01/2022 PM EDT 12:46 PM EDT Resulting Agency Comment Spec In Lab Jorge L J Klever ASSISTANT PROFESSOR OF SOCIOLOGY BLOOD BANK ORDERABLES Performing Organization Address City/[facility]/[place] [address] Prepare RBC (02/01/2022 12:05 PM EDT) P athologist Signature Dispensed? Yes [facility] LABORATORY Specimen Anatomical Collection Method Collection Time Receive d Time (Source) Location / / Volume Laterality Blood 02/01/2022 12:05 02/01/2022 PM EDT 12:15 PM EDT Jorge L Jacobsonriana AVENDAÑO BLOOD BANK ORDERABLES Performing Organization Address City/State/[place] [address] (ABNORMAL) Basic Metabolic Panel (non-fasting) (02/01/2022 11:42 AM EDT) athologist Signature Glucose Lvl 106 65 - 199 [facility] mg/dL [facility] LABORATORY Comment: Diabetes: >=200 mg/dL plus symp toms BUN 49 (H) 10 - 20 mg/dL [facility] LABORATORY Creatinine 3.84 (H) 0.80 - 1.50 mg/dL [facility] LABORATORY Sodium 129 (L) 135 - 145 mmol/L [facility] LABORATORY Potassium 5.1 (H) 3.5 - 5.0 mmol/L [facility] LABORATORY Comment: Please note: ??Patients with WBC >100,00 0 may have falsely elevated Potassium levels. ??For accurate Potassium quantif ication in these patients send serum separator tube (gold top) for subsequent determinations. ??Contact the Clinical Chemistry Laboratory if there are any qu estions. Chloride 98 98 - 107 mmol/L [facility] LABORATORY CO2 21 (L) 22 - 31 mmol/L [facility] LABORATORY Anion Gap 10 5 - 15 mmol/L [facility] LABORATORY Calcium 7.6 (L) 8.5 - 10.5 mg/dL [facility] LABORATORY Estimated GFR 21 (L) >=60 mL/min/1.73 m?? [facility] LABORATORY Comment: This patient's estimated [...] Comment Spec In Lab Jorge L Ernst ASSISTANT PROFESSOR OF SOCIOLOGY CHEMISTRY ORDERABLES Performing Organization Address City/State/[place] [address] (ABNORMAL) Hemogram (02/01/2022 11:42 AM EDT) P athologist Signature WBC 36.0 4.0 - 9.5 [facility] (Critical) x10(3)/[facility] LABORATORY Comment: This result has been called to DONTA SY by MARCIA KIMBALL on 02 01 2022 at 1154, and has been read back. RBC 1.98 (L) 4.58 - 5.54 x10(6)/[facility] LABORATORY Hemoglobin 6.4 (L) 13.7 - 16.5 g/dL [facility] LABORATORY Hematocrit 18.5 (L) 40.5 - 48.5 % [facility] LABORATORY MCV 93.4 (H) 82.9 - 93.1 fL [facility] LABORATORY MCH 32.3 (H) 27.5 - 32.1 pg [facility] LABORATORY MCHC 34.6 32.0 - 35.7 g/dL [facility] LABORATORY Platelets 239 145 - 357 x10(3)/[facility] LABORATORY RDWSD 45.0 36.0 - 45.0 [facility] LABORATORY RDWCV 13.7 11.4 - 13.8 % [facility] LABORATORY MPV 10.6 7.6 - 12.9 [facility] HOSPITAL LABORATORY nRBC % Auto 0.0 % [facility] LABORATORY nRBC Abs Auto 0.000 0.000 - 0.000 x10(3)/mcL [facility] LABORATORY Specimen Anatomical Collection Method Collection Time Receive d Time (Source) Location / / Volume Laterality Blood 02/01/2022 11:42 02/01/2022 AM EDT 11:46 AM EDT Resulting Agency Comment Spec In Lab Beck Sanz MD HEMATOLOGY ORDERABLES Performing Organization Address City/State/ZIP Code Phon e Number [address] POCT Glucose (02/01/2022 10:42 AM EDT) P athologist Signature POC Glucose 119 65 - 199 [facility] mg/dL [facility] LABORATORY Comment: Supplemental ranges: <140 mg/dL before meals <180 mg/dL all other times of the day Specimen Anatomical Collection Method Collection Time Receive d Time (Source) Location / / Volume Laterality Blood 02/01/2022 10:42 02/01/2022 AM EDT 10:42 AM EDT Beck Sanz MD POINT OF CARE TEST ORDERABLE S Performing Organization Address City/[facility]/[place] [address] Blood culture (02/01/2022 6:35 AM EDT) [facility] Method Time Signature Blood Culture No growth JOSH MANDO at 5 days. [facility] LABORATORY Specimen Anatomical Collection Method Collection Time Receive d Time (Source) Location / / Volume Laterality Blood 02/01/2022 6:35 AM 9:38 EDT AM EDT Resulting Agency Comment Spec In Lab Beck Sanz MD MICROBIOLOGY - BLOOD ORDERAB LES Performing Organization Address City/[facility]/ZIP Code Phon e Number [address] Blood culture (02/01/2022 6:25 AM EDT) [facility] Method Time Signature Blood Culture No growth JOSH VELASQUEZMANDO at 5 days. [facility] LABORATORY Specimen (Source) Anatomical Collection Method Collection Time Re ceived Time Location / / Volume Laterality Blood Pediatric 02/01/2022 6:25 9:38 AM EDT AM EDT Resulting Agency Comment Spec In Lab Beck Sanz MD MICROBIOLOGY - BLOOD ORDERAB LES Performing Organization Address City/[facility]/[place] [address] (ABNORMAL) Calcium Ionized Whole Blood, HONORIO (02/01/2022 4:00 AM EDT) Analysis Performed At Patho logist Time Signature pH Honorio 7.43 (H) 7.32 - [facility] 7.42 [facility] LABORATORY ICa Whole 1.13 (L) 1.15 - [facility] Blood 1.33 [facility] mmol/L [facility] LABORATORY Comment: Note: ??Total bilirubin higher than 20 m g/dL may lead to falsely low ionized calcium. Specimen Anatomical Collection Method Collection Time Receive d Time (Source) Location / / Volume Laterality Blood ARTERIAL LINE / 02/01/2022 4:00 AM 2021 4:11 Unknown EDT AM EDT Resulting Agency Comment Spec In Lab Erika Retana MD CHEMISTRY ORDERABLES Performing Organization Address City/[facility]/[place] [address] (ABNORMAL) Hemogram (02/01/2022 4:00 AM EDT) P athologist Signature WBC 43.9 4.0 - 9.5 [facility] (Critical) x10(3)/[facility] LABORATORY Comment: This result has been called to GEENA AMBRIZ by Nicki Bazzi on 02 01 2022 at 0446, and has been read back. RBC 2.20 (L) 4.58 - 5.54 x10(6)/[facility] LABORATORY Hemoglobin 7.1 (L) 13.7 - 16.5 g/dL [facility] LABORATORY Hematocrit 20.3 (L) 40.5 - 48.5 % [facility] LABORATORY MCV 92.3 82.9 - 93.1 fL [facility] LABORATORY MCH 32.3 (H) 27.5 - 32.1 pg [facility] LABORATORY MCHC 35.0 32.0 - 35.7 g/dL [facility] LABORATORY Platelets 264 145 - 357 x10(3)/[facility] LABORATORY RDWSD 43.8 36.0 - 45.0 fL [facility] LABORATORY RDWCV 13.2 11.4 - 13.8 % [facility] LABORATORY MPV 10.7 7.6 - 12.9 fL [facility] LABORATORY nRBC % Auto 0.0 % [facility] LABORATORY nRBC Abs Auto 0.000 0.000 - 0.000 x10(3)/[facility] LABORATORY Specimen Anatomical Collection Method Collection Time Receive d Time (Source) Location / / Volume Laterality Blood 02/01/2022 4:00 AM 4:11 EDT AM EDT Resulting Agency Comment Spec In Lab Beck Sanz MD HEMATOLOGY ORDERABLES Performing Organization Address City/State/[place] [address] (ABNORMAL) Differential, Automated (02/01/2022 1:02 AM EDT) [facility] Method Time Signature Neutrophils % 73.9 % [facility] LABORATORY Neutr Abs (ANC) 30.91 (H) 1.70 - [facility] 6.10 [facility] x10(3)/[facility] L LABORATORY Lymphocytes % 7.5 % [facility] LABORATORY Lymphocytes Abs 3.1 0.9 - 3.2 [facility] x10(3)/[facility] LABORATORY Monocytes % 7.7 % [facility] LABORATORY Monocyte Abs 3.2 (H) 0.3 - 0.9 [facility] x10(3)/[facility] LABORATORY Eosinophils % 0.5 % [facility] LABORATORY Eosinophils Abs 0.2 0.0 - 0.4 [facility] x10(3)/[facility] LABORATORY Basophils % 0.4 % [facility] LABORATORY Basophils Abs 0.2 (H) 0.0 - 0.1 [facility] x10(3)/[facility] LABORATORY Immature Gran % 10.00 % [facility] LABORATORY Comment: Immature granulocytes(IG's)percentage an d absolute [...] Organization Address City/State/[place] [address] (ABNORMAL) Hemogram (02/01/2022 1:02 AM EDT) P athologist Signature WBC 41.8 4.0 - 9.5 [facility] (Critical) x10(3)/[facility] LABORATORY Comment: This result has been called to PEPE SORENSON by Nicki Bazzi on 02 01 2022 at 0132, and has been read back. RBC 2.23 (L) 4.58 - 5.54 x10(6)/[facility] LABORATORY Hemoglobin 7.2 (L) 13.7 - 16.5 g/dL [facility] LABORATORY Hematocrit 20.6 (L) 40.5 - 48.5 % [facility] LABORATORY MCV 92.4 82.9 - 93.1 fL [facility] LABORATORY MCH 32.3 (H) 27.5 - 32.1 pg [facility] LABORATORY MCHC 35.0 32.0 - 35.7 g/dL [facility] LABORATORY Platelets 252 145 - 357 x10(3)/[facility] LABORATORY RDWSD 43.6 36.0 - 45.0 fL [facility] LABORATORY RDWCV 13.3 11.4 - 13.8 % [facility] LABORATORY MPV 10.8 7.6 - 12.9 fL [facility] LABORATORY nRBC % Auto 0.0 % [facility] LABORATORY nRBC Abs Auto 0.000 0.000 - 0.000 x10(3)/[facility] LABORATORY Specimen Anatomical Collection Method Collection Time Receive d Time (Source) Location / / Volume Laterality Blood 02/01/2022 1:02 AM 1:13 EDT AM EDT Resulting Agency Comment Spec In Lab Dimas Hernandez MD HEMATOLOGY ORDERABLES Performing Organization Address City/[facility]/ZIP Code Phon e Number [address] (ABNORMAL) Calcium Ionized Whole Blood, HONORIO (02/01/2022 1:02 AM EDT) Analysis Performed At Patho logist Time Signature pH Honorio 7.42 7.32 - [facility] 7.42 [facility] LABORATORY ICa Whole 1.09 (L) 1.15 - [facility] Blood 1.33 [facility] mmol/L [facility] LABORATORY Comment: Note: ??Total bilirubin higher than 20 m g/dL may lead to falsely low ionized calcium. Specimen Anatomical Collection Method Collection Time Receive d Time (Source) Location / / Volume Laterality Blood ARTERIAL LINE / 02/01/2022 1:02 AM 2021 1:13 Unknown EDT AM EDT Resulting Agency Comment Spec In Lab Erika Retana MD CHEMISTRY ORDERABLES Performing Organization Address City/[facility]/ZIP Code Phon e Number [address] (ABNORMAL) Basic Metabolic Panel (non-fasting) (02/01/2022 1:02 AM EDT) P athologist Signature Glucose Lvl 125 65 - 199 [facility] mg/dL [facility] LABORATORY Comment: Diabetes: >=200 mg/dL plus symp toms BUN 50 (H) 10 - 20 mg/dL [facility] LABORATORY Creatinine 3.91 (H) 0.80 - 1.50 mg/dL [facility] LABORATORY Sodium 127 (L) 135 - 145 mmol/L [facility] LABORATORY Potassium 5.2 (H) 3.5 - 5.0 mmol/L [facility] LABORATORY Comment: Please note: ??Patients with WBC >100,00 0 may have falsely elevated Potassium levels. ??For accurate Potassium quantif ication in these patients send serum separator tube (gold top) for subsequent determinations. ??Contact the Clinical Chemistry Laboratory if there are any qu estions. Chloride 97 (L) 98 - 107 mmol/L [facility] LABORATORY CO2 21 (L) 22 - 31 mmol/L [facility] LABORATORY Anion Gap 9 5 - 15 mmol/L [facility] LABORATORY Calcium 7.6 (L) 8.5 - 10.5 mg/dL [facility] LABORATORY Estimated GFR 20 (L) >=60 mL/min/1.73 m?? [facility] LABORATORY Comment: This patient's estimated [...] Organization Address City/State/[place] [address] (ABNORMAL) Phosphorus (02/01/2022 1:02 AM EDT) athologist Signature Phosphorus 4.9 (H) 2.5 - 4.5 [facility] LABORATORY Specimen Anatomical Collection Method Collection Time Receive d Time (Source) Location / / Volume Laterality Blood 02/01/2022 1:02 AM 2 1:13 EDT AM EDT Resulting Agency Comment Spec In Lab Gela Novak MD CHEMISTRY ORDERABLES Performing Organization Address City/State/ZIP Code Phon e Number [address] Magnesium (02/01/2022 1:02 AM EDT) athologist Signature Magnesium 0.94 0.69 - 1.07 [facility] mmol/L [facility] LABORATORY Specimen Anatomical Collection Method Collection Time Receive d Time (Source) Location / / Volume Laterality Blood 02/01/2022 1:02 AM 2 1:13 EDT AM EDT Resulting Agency Comment Spec In Lab Gela Novak MD CHEMISTRY ORDERABLES Performing Organization Address City/[facility]/ZIP Code Phon e Number [address] (ABNORMAL) Calcium Ionized Whole Blood, HONORIO (01/31/2022 10:30 PM EDT) Analysis Performed At Patho logist Time Signature pH Honorio 7.40 7.32 - [facility] 7.42 [facility] LABORATORY ICa Whole 1.02 (L) 1.15 - [facility] Blood 1.33 [facility] mmol/L [facility] LABORATORY Comment: Note: ??Total bilirubin higher than 20 m g/dL may lead to falsely low ionized calcium. Specimen Anatomical Collection Method Collection Time Receive d Time (Source) Location / / Volume Laterality Blood ARTERIAL LINE / 01/31/2022 10:30 02/01/20 22 Unknown PM EDT 10:36 PM EDT Resulting Agency Comment Spec In Lab Erika Retana MD CHEMISTRY ORDERABLES Performing Organization Address City/[facility]/ZIP Code Phon e Number [address] POCT Glucose (01/31/2022 7:39 PM EDT) P athologist Signature POC Glucose 150 65 - 199 [facility] mg/dL [facility] LABORATORY Comment: Supplemental ranges: <140 mg/dL before meals <180 mg/dL all other times of the day Specimen Anatomical Collection Method Collection Time Receive d Time (Source) Location / / Volume Laterality Blood 01/31/2022 7:39 PM 7:39 EDT PM EDT Beck Sanz MD POINT OF CARE TEST ORDERABLE S Performing Organization Address City/[facility]/ZIP [facility] [place] [address] (ABNORMAL) Calcium Ionized Whole Blood, HONORIO (01/31/2022 7:36 PM EDT) Analysis Performed At Patho logist Time Signature pH Honorio 7.44 (H) 7.32 - [facility] 7.42 [facility] LABORATORY ICa Whole 0.98 (L) 1.15 - [facility] Blood 1.33 [facility] mmol/[facility] LABORATORY Comment: Note: ??Total bilirubin higher than 20 m g/dL may lead to falsely low ionized calcium. Specimen Anatomical Collection Method Collection Time Receive d Time (Source) Location / / Volume Laterality Blood ARTERIAL LINE / 01/31/2022 7:36 PM 2021 7:40 Unknown EDT PM EDT Resulting Agency Comment Spec In Lab Erika Retana MD CHEMISTRY ORDERABLES Performing Organization Address City/[facility]/[place] [address] (ABNORMAL) Electrolytes panel (01/31/2022 4:54 PM EDT) P athologist Signature Sodium 126 (L) 135 - 145 [facility] mmol/L [facility] LABORATORY Potassium 5.9 (H) 3.5 - 5.0 [facility] mmol/L [facility] LABORATORY Comment: Please note: ??Patients with WBC >100,00 0 may have falsely elevated Potassium levels. ??For accurate Potassium quantif ication in these patients send serum separator tube (gold top) for subsequent determinations. ??Contact the Clinical Chemistry Laboratory if there are any qu estions. Chloride 95 (L) 98 - 107 mmol/L [facility] LABORATORY CO2 20 (L) 22 - 31 mmol/L [facility] LABORATORY Anion Gap 11 5 - 15 mmol/L [facility] LABORATORY Specimen Anatomical Collection Method Collection Time Receive d Time (Source) Location / / Volume Laterality Blood 01/31/2022 4:54 PM 2 5:07 EDT PM EDT Resulting Agency Comment Spec In Lab Agnieszkaeliseo López APRN CHEMISTRY ORDERABLES Performing Organization Address City/[facility]/ZIP Code Phon e Number [address] POCT Glucose (01/31/2022 10:03 AM EDT) P athologist Signature POC Glucose 108 65 - 199 [facility] mg/dL [facility] LABORATORY Comment: Supplemental ranges: <140 mg/dL before meals <180 mg/dL all other times of the day Specimen Anatomical Collection Method Collection Time Receive d Time (Source) Location / / Volume Laterality Blood 01/31/2022 10:03 01/31/2022 AM EDT 10:03 AM EDT Beck Sanz MD POINT OF CARE TEST ORDERABLE S Performing Organization Address City/[facility]/ZIP Code Phon e Number [address] APTT (01/31/2022 8:05 AM EDT) P athologist Signature PTT 36 25 - 37 sec [facility] LABORATORY Comment: The PTT is NOT appropriate [...] Sanz MD HEMATOLOGY ORDERABLES Performing Organization Address City/[facility]/[place] [address] (ABNORMAL) Electrolytes panel (01/31/2022 6:10 AM EDT) P athologist Signature Sodium 126 (L) 135 - 145 [facility] mmol/L [facility] LABORATORY Potassium 5.1 (H) 3.5 - 5.0 [facility] mmol/L [facility] LABORATORY Comment: Please note: ??Patients with WBC >100,00 0 may have falsely elevated Potassium levels. ??For accurate Potassium quantif ication in these patients send serum separator tube (gold top) for subsequent determinations. ??Contact the Clinical Chemistry Laboratory if there are any qu estions. Chloride 94 (L) 98 - 107 mmol/L [facility] LABORATORY CO2 22 22 - 31 mmol/L [facility] LABORATORY Anion Gap 10 5 - 15 mmol/L [facility] LABORATORY Specimen Anatomical Collection Method Collection Time Receive d Time (Source) Location / / Volume Laterality Blood 01/31/2022 6:10 AM 2 6:15 EDT AM EDT Resulting Agency Comment Spec In Lab Erika Retana MD CHEMISTRY ORDERABLES Performing Organization Address City/State/[place] [address] POCT Glucose (01/31/2022 4:16 AM EDT) athologist Signature POC Glucose 94 65 - 199 [facility] mg/dL [facility] LABORATORY Comment: Supplemental ranges: <140 mg/dL before meals <180 mg/dL all other times of the day Specimen Anatomical Collection Method Collection Time Receive d Time (Source) Location / / Volume Laterality Blood 01/31/2022 4:16 AM 2 4:16 EDT AM EDT Beck Sanz MD POINT OF CARE TEST ORDERABLE S Performing Organization Address City/State/[place] [address] (ABNORMAL) BLOOD GAS 2 VENOUS (01/31/2022 12:43 AM EDT) Analysis Performed At Patho logist Time Signature pH Honorio 7.44 (H) 7.32 - [facility] 7.42 [facility] LABORATORY pCO2 Honorio 30 (L) 41 - 51 [facility] LABORATORY pO2 Honorio 34 25 - 40 [facility] LABORATORY HCO3 Honorio 20.2 mmol/L [facility] LABORATORY BE Honorio -4.0 mmol/L [facility] LABORATORY Hgb Blood Gas 10.1 (L) 13.7 - [facility] 16.5 g/dL [facility] O2HB Honorio 69.5 % [facility] LABORATORY COHB Honorio 0.1 % [facility] LABORATORY Comment: Nonsmokers: 0.5-1.5% COHB Smokers: Variable, but usually less than 10% Toxic: 20-30% COHB Lethal: Greater than 60% COHB METHB Honorio 0.3 <=1.5 % [facility] LABORATORY Na Whole Blood 120 (L) 135 - 145 mmol/L [facility] LABORATORY K Whole Blood 4.9 3.5 - 5.0 mmol/L [facility] LABORATORY Comment: Please note: Patients with WBC >100,000 may have falsely elevated Potassium levels. Contact the Clinical Chemistry L aboratory if there are any questions. ICa Whole Blood 1.05 (L) 1.15 - 1.33 mmol/L [facility] LABORATORY Comment: Note: ??Total bilirubin higher than 20 m g/dL may lead to falsely low ionized calcium. CL Whole Blood 95 (L) 98 - 107 mmol/L [facility] LABORATORY Gluc Whole Bld 110 65 - 199 mg/dL [facility] LABORATORY Comment: Diabetes: >=200 mg/dL plus symp toms Lactate WB 1.0 0.5 - 2.2 mmol/L [facility] LABORATORY BGas Source Venous [facility] LABORATORY Specimen Anatomical Collection Method Collection Time Receive d Time (Source) Location / / Volume Laterality Blood 01/31/2022 12:43 01/31/2022 AM EDT 12:43 AM EDT Beck Sanz MD CHEMISTRY ORDERABLES Performing Organization Address City/State/[place] [address] (ABNORMAL) Differential, Automated (01/31/2022 12:42 AM EDT) [facility] Method Time Signature Neutrophils % 65.8 % [facility] LABORATORY Neutr Abs (ANC) 23.59 (H) 1.70 - [facility] 6.10 [facility] x10(3)/[facility] LABORATORY Lymphocytes % 8.0 % [facility] Lymphocytes Abs 2.9 0.9 - 3.2 [facility] x10(3)/[facility] LABORATORY Monocytes % 9.6 % [facility]OR[facility]ORY Monocyte Abs 3.4 (H) 0.3 - 0.9 [facility] x10(3)/[facility] LABORATORY Eosinophils % 0.9 % [facility]ORY Eosinophils Abs 0.3 0.0 - 0.4 [facility] x10(3)/[facility] LABORATORY Basophils % 0.5 % [facility]OR[facility]ORY Basophils Abs 0.2 (H) 0.0 - 0.1 [facility] x10(3)/[facility] LABORATORY Immature Gran % 15.20 % [facility]OR[facility]ORY Comment: Immature granulocytes(IG's)percentage an d absolute [...] Organization Address City/State/[place] [address] (ABNORMAL) Hemogram (01/31/2022 12:42 AM EDT) P athologist Signature WBC 35.8 4.0 - 9.5 [facility] (Critical) x10(3)/[facility] LABORATORY Comment: This result has been called to PAPITO Boss by Reymundo De Luna on 01 31 2022 at 0103, and has been read back. RBC 2.84 (L) 4.58 - 5.54 x10(6)/[facility] LABORATORY Hemoglobin 9.1 (L) 13.7 - 16.5 g/dL [facility] LABORATORY Hematocrit 25.9 (L) 40.5 - 48.5 % [facility]ORATORY MCV 91.2 82.9 - 93.1 [facility] LABORATORY MCH 32.0 27.5 - 32.1 pg [facility]ORATORY MCHC 35.1 32.0 - 35.7 g/dL [facility] LABORATORY Platelets 195 145 - 357 x10(3)/[facility] LABORATORY RDWSD 42.7 36.0 - 45.0 [facility] LABORATORY RDWCV 13.2 11.4 - 13.8 % [facility] LABORATORY MPV 10.6 7.6 - 12.9 [facility] LABORATORY nRBC % Auto 0.0 % [facility] LABORATORY nRBC Abs Auto 0.000 0.000 - 0.000 x10(3)/[facility] LABORATORY Specimen Anatomical Collection Method Collection Time Receive d Time (Source) Location / / Volume Laterality Blood 01/31/2022 12:42 01/31/2022 AM EDT 12:49 AM EDT Resulting Agency Comment Spec In Lab Cristina Hillman APRN HEMATOLOGY ORDERABLES Performing Organization Address City/State/[place] [address] (ABNORMAL) Creatinine (01/31/2022 12:42 AM EDT) Analysis Performed At Patho logist Time Signature Creatinine 4.01 (H) 0.80 - [facility] 1.50 mg/dL [facility] LABORATORY Estimated GFR 20 (L) >=60 [facility] [place] mL/min/1.7 [facility] 3 m?? HOSPITAL LABORATORY Comment: This patient's [...] Organization Address City/State/[place] [address] (ABNORMAL) BUN (01/31/2022 12:42 AM EDT) P athologist Signature BUN 50 (H) 10 - 20 [facility] mg/dL [facility] LABORATORY Specimen Anatomical Collection Method Collection Time Receive d Time (Source) Location / / Volume Laterality Blood 01/31/2022 12:42 01/31/2022 AM EDT 12:49 AM EDT Resulting Agency Comment Spec In Lab Beck Sanz MD CHEMISTRY ORDERABLES Performing Organization Address City/State/[place] [address] (ABNORMAL) Electrolytes panel (01/31/2022 12:42 AM EDT) P athologist Signature Sodium 123 (L) 135 - 145 [facility] mmol/L [facility] LABORATORY Potassium 5.1 (H) 3.5 - 5.0 [facility] mmol/L [facility] LABORATORY Comment: Please note: ??Patients with WBC >100,00 0 may have falsely elevated Potassium levels. ??For accurate Potassium quantif ication in these patients send serum separator tube (gold top) for subsequent determinations. ??Contact the Clinical Chemistry Laboratory if there are any qu estions. Chloride 94 (L) 98 - 107 mmol/L [facility]OR[facility] CO2 21 (L) 22 - 31 mmol/L [facility]OR[facility]ORY Anion Gap 8 5 - 15 mmol/L [facility] LABORATORY Specimen Anatomical Collection Method Collection Time Receive d Time (Source) Location / / Volume Laterality Blood 01/31/2022 12:42 01/31/2022 AM EDT 12:49 AM EDT Resulting Agency Comment Spec In Lab Erika Retana MD CHEMISTRY ORDERABLES Performing Organization Address City/[facility] [place] [address] (ABNORMAL) Calcium Ionized Whole Blood, HONORIO (01/30/2022 8:17 PM EDT) Analysis Performed At Patho logist Time Signature pH Honorio 7.42 7.32 - [facility] 7.42 [facility] LABORATORY ICa Whole 0.99 (L) 1.15 - [facility] Blood 1.33 [facility] mmol/ HOSPITAL LABORATORY Comment: Note: ??Total bilirubin higher than 20 m g/dL may lead to falsely low ionized calcium. Specimen Anatomical Collection Method Collection Time Receive d Time (Source) Location / / Volume Laterality Blood ARTERIAL LINE / 01/30/2022 8:17 PM 2021 8:24 Unknown EDT PM EDT Resulting Agency Comment Spec In Lab Erika Retana MD CHEMISTRY ORDERABLES Performing Organization Address City/[facility] [place] [address] APTT (01/30/2022 8:17 PM EDT) P athologist Signature PTT 30 25 - 37 sec [facility] LABOR[facility]ORY Comment: The PTT is NOT appropriate [...] Sanz MD HEMATOLOGY ORDERABLES Performing Organization Address City/[facility]/ZIP Code Phon e Number [address] POCT Glucose (01/30/2022 8:00 PM EDT) athologist Signature POC Glucose 144 65 - 199 [facility] mg/dL [facility] LABORATORY Comment: Supplemental ranges: <140 mg/dL before meals <180 mg/dL all other times of the day Specimen Anatomical Collection Method Collection Time Receive d Time (Source) Location / / Volume Laterality Blood 01/30/2022 8:00 PM 8:00 EDT PM EDT Beck Sanz MD POINT OF CARE TEST ORDERABLE S Performing Organization Address City/[facility]/[place] [address] Chest Abdomen Pelvis [...] who have questions please contact the health administrator health care facility that requested your imaging first. ? Electronically signed by: Melita Mills MD, [facility] ([phone]), at 01/30/2022 3:20 PM Narrative 01/30/2022 3:20 [...] ho have questions please contact the health administrator health care facility that requested your imaging first. Electronically signed by: Melita Mills MD, [facility] ([phone]), at 01/30/2022 3:20 PM Agnieszka López APRN IMG CT ORDERABLES (ABNORMAL) Electrolytes panel (01/30/2022 12:23 PM EDT) P athologist Signature Sodium 122 (L) 135 - 145 [facility] mmol/L [facility] LABORATORY Potassium 5.2 (H) 3.5 - 5.0 [facility] mmol/L [facility] LABORATORY Comment: Please note: ??Patients with WBC >100,00 0 may have falsely elevated Potassium levels. ??For accurate Potassium quantif ication in these patients send serum separator tube (gold top) for subsequent determinations. ??Contact the Clinical Chemistry Laboratory if there are any qu estions. Chloride 92 (L) 98 - 107 mmol/L [facility] CO2 21 (L) 22 - 31 mmol/L [facility]OR[facility] Anion Gap 9 5 - 15 mmol/L [facility] LABORATORY Specimen Anatomical Collection Method Collection Time Receive d Time (Source) Location / / Volume Laterality Blood 01/30/2022 12:23 01/30/2022 PM EDT 12:33 PM EDT Resulting Agency Comment Spec In Lab Agnieszka López APRN CHEMISTRY ORDERABLES Performing Organization Address City/[facility]/ZIP Code Phon e Number [address] POCT Glucose (01/30/2022 10:42 AM EDT) P athologist Signature POC Glucose 140 65 - 199 [facility] mg/dL [facility] LABORATORY Comment: Supplemental ranges: <140 mg/dL before meals <180 mg/dL all other times of the day Specimen Anatomical Collection Method Collection Time Receive d Time (Source) Location / / Volume Laterality Blood 01/30/2022 10:42 01/30/2022 AM EDT 10:42 AM EDT Beck Sanz MD POINT OF CARE TEST ORDERABLE S Performing Organization Address City/State/[place] [address] EKG 12 Lead (01/30/2022 9:18 AM EDT) Component Value Ref Range Test Analysis Performed Pathologis t Method Time At Signature Ventricular rate 111 BPM MUSE SYSTEM Atrial Rate 111 BPM MUSE SYSTEM P-R Interval 136 ms MUSE SYSTEM QRS Duration 84 ms MUSE SYSTEM Q-T Interval 308 ms MUSE SYSTEM QTC Calculated 418 ms MUSE SYSTEM (Bezet) Calculated P Holden 13 degrees MUSE SYSTEM Calculated R Holden 31 degrees MUSE SYSTEM Calculated T Holden -8 degrees MUSE SYSTEM INTERPRETATION Sinus tachycardia MUSE SY STEM Nonspecific T wave abnormality Abnormal ECG When compared with ECG of 23-JAN-2022 00:46, heart rate has slowed Confirmed by Clem Guo ([id number]) on 02/01/2022 1:23:54 PM Specimen Anatomical Collection Method Collection Time Receive d Time (Source) Location / / Volume Laterality 01/30/2022 9:18 AM 2 1:23 EDT PM EDT Anthony Harvey APRN ECG ORDERABLES Performing Organization Address City/State/ZIP Code Phon e Number MUSE SYSTEM POCT Glucose (01/30/2022 4:21 AM EDT) P athologist Signature POC Glucose 119 65 - 199 [facility] mg/dL [facility] LABORATORY Comment: Supplemental ranges: <140 mg/dL before meals <180 mg/dL all other times of the day Specimen Anatomical Collection Method Collection Time Receive d Time (Source) Location / / Volume Laterality Blood 01/30/2022 4:21 AM 2 4:21 EDT AM EDT Beck Sanz MD POINT OF CARE TEST ORDERABLE S Performing Organization Address City/[facility]/[place] [address] Scan, Peripheral Blood (01/30/2022 4:10 AM EDT) [facility] [employer] Method Time Signature Plat Estimate Normal [facility] LABORATORY RBC Morphology Normal [facility] LABORATORY Toxic Present [facility] LABORATORY Dohle Bodies Present [facility] LABORATORY Specimen Anatomical Collection Method Collection Time Receive d Time (Source) Location / / Volume Laterality Blood 01/30/2022 4:10 AM 2 4:36 EDT AM EDT Resulting Agency Comment Spec In Lab Cristina Hillman APRN HEMATOLOGY ORDERABLES Performing Organization Address City/[facility]/[place] [address] (ABNORMAL) Differential, Automated (01/30/2022 4:10 AM EDT) [facility] [employer] Method Time Signature Neutrophils % 60.7 % [facility] LABORATORY Neutr Abs (ANC) 23.73 (H) 1.70 - [facility] 6.10 [facility] x10(3)/[facility] LABORATORY Lymphocytes % 7.2 % [facility] LABORATORY Lymphocytes Abs 2.8 0.9 - 3.2 [facility] x10(3)/[facility] LABORATORY Monocytes % 9.3 % [facility] LABORATORY Monocyte Abs 3.6 (H) 0.3 - 0.9 [facility] x10(3)/[facility] LABORATORY Eosinophils % 0.4 % [facility] LABORATORY Eosinophils Abs 0.2 0.0 - 0.4 [facility] x10(3)/[facility] LABORATORY Basophils % 0.2 % [facility] LABORATORY Basophils Abs 0.1 0.0 - 0.1 [facility] x10(3)/[facility] LABORATORY Immature Gran % 22.20 % [facility] LABORATORY Comment: Immature granulocytes(IG's)percentage an d absolute [...] Organization Address City/State/[place] [address] (ABNORMAL) Hemogram (01/30/2022 4:10 AM EDT) athologist Signature WBC 39.1 4.0 - 9.5 [facility] (Critical) x10(3)/[facility] LABORATORY Comment: This result has been called to BECK GUILLEN by Shelli Sauceda on 01 30 2022 at 0448, and has been read back. RBC 3.18 (L) 4.58 - 5.54 x10(6)/[facility] LABORATORY Hemoglobin 10.5 (L) 13.7 - 16.5 g/dL [facility] LABORATORY Hematocrit 29.3 (L) 40.5 - 48.5 % [facility] LABORATORY MCV 92.1 82.9 - 93.1 fL [facility] LABORATORY MCH 33.0 (H) 27.5 - 32.1 pg [facility] LABORATORY MCHC 35.8 (H) 32.0 - 35.7 g/dL [facility] LABORATORY Platelets 195 145 - 357 x10(3)/[facility] LABORATORY RDWSD 43.3 36.0 - 45.0 [facility] LABORATORY RDWCV 13.0 11.4 - 13.8 % [facility] LABORATORY MPV 10.6 7.6 - 12.9 [facility] LABORATORY nRBC % Auto 0.0 % [facility] LABORATORY nRBC Abs Auto 0.000 0.000 - 0.000 x10(3)/[facility] LABORATORY Specimen Anatomical Collection Method Collection Time Receive d Time (Source) Location / / Volume Laterality Blood 01/30/2022 4:10 AM 2 4:36 EDT AM EDT Resulting Agency Comment Spec In Lab Cristina Hillman APRN HEMATOLOGY ORDERABLES Performing Organization Address City/State/[place] [address] (ABNORMAL) Blood Gas Venous ([facility]) (01/30/2022 4:10 AM EDT) Analysis Performed At Patho logist Time Signature pH Honorio 7.43 (H) 7.32 - [facility] 7.42 [facility] LABORATORY pCO2 Honorio 34 (L) 41 - 51 [facility] LABORATORY pO2 Honorio 35 25 - 40 [facility] LABORATORY HCO3 Honorio 22.2 mmol/L [facility] LABORATORY BE Honorio -2.2 mmol/L [facility] LABORATORY Hgb Blood Gas 11.6 (L) 13.7 - [facility] 16.5 g/dL [facility] O2HB Honorio 72.9 % [facility] LABORATORY COHB Honorio 1.0 % [facility] LABORATORY Comment: Nonsmokers: 0.5-1.5% COHB Smokers: Variable, but usually less than 10% Toxic: 20-30% COHB Lethal: Greater than 60% COHB METHB Honorio 0.3 <=1.5 % [facility] LABORATORY Na Whole Blood 123 (L) 135 - 145 mmol/L [facility] LABORATORY K Whole Blood 5.1 (H) 3.5 - 5.0 mmol/L [facility] LABORATORY Comment: Please note: Patients with WBC >100,000 may have falsely elevated Potassium levels. Contact the Clinical Chemistry L aboratory if there are any questions. ICa Whole Blood 1.05 (L) 1.15 - 1.33 mmol/L [facility] LABORATORY Comment: Note: ??Total bilirubin higher than 20 m g/dL may lead to falsely low ionized calcium. CL Whole Blood 97 (L) 98 - 107 mmol/L [facility] LABORATORY Gluc Whole Bld 142 65 - 199 mg/dL [facility] LABORATORY Comment: Diabetes: >=200 mg/dL plus symp toms Lactate WB 1.2 0.5 - 2.2 mmol/L [facility] LABORATORY BGas Source Venous [facility] LABORATORY Specimen Anatomical Collection Method Collection Time Receive d Time (Source) Location / / Volume Laterality Blood Venous Draw / 01/30/2022 4:10 AM 01/31/20 22 4:31 Unknown EDT AM EDT Resulting Agency Comment Spec In Lab Angelina Reynoso MD CHEMISTRY ORDERABLES Performing Organization Address City/State/[place] [address] (ABNORMAL) CK (01/30/2022 4:10 AM EDT) athologist Signature CK, Total 5,685 (H) 0 - 200 [facility] unit/L [facility] LABORATORY Specimen Anatomical Collection Method Collection Time Receive d Time (Source) Location / / Volume Laterality Blood 01/30/2022 4:10 AM 4:36 EDT AM EDT Resulting Agency Comment Spec In Lab Gemma B Pentland ASSISTANT PROFESSOR OF SOCIOLOGY CHEMISTRY ORDERABLES Performing Organization Address City/State/[place] [address] (ABNORMAL) Basic Metabolic Panel (non-fasting) (01/30/2022 4:10 AM EDT) athologist Signature Glucose Lvl 146 65 - 199 [facility] mg/dL [facility] LABORATORY Comment: Diabetes: >=200 mg/dL plus symp toms BUN 43 (H) 10 - 20 mg/dL [facility] LABORATORY Creatinine 3.71 (H) 0.80 - 1.50 mg/dL [facility] LABORATORY Sodium 127 (L) 135 - 145 mmol/L [facility] LABORATORY Potassium 5.3 (H) 3.5 - 5.0 mmol/L [facility] LABORATORY Comment: Please note: ??Patients with WBC >100,00 0 may have falsely elevated Potassium levels. ??For accurate Potassium quantif ication in these patients send serum separator tube (gold top) for subsequent determinations. ??Contact the Clinical Chemistry Laboratory if there are any qu estions. Chloride 96 (L) 98 - 107 mmol/L [facility]ORATORY CO2 22 22 - 31 mmol/L [facility]OR[facility]ORY Anion Gap 9 5 - 15 mmol/L [facility] LABORATORY Calcium 7.5 (L) 8.5 - 10.5 mg/dL [facility] LABORATORY Estimated GFR 22 (L) >=60 mL/min/1.73 m?? [facility] LABOR[facility]ORY Comment: This patient's estimated [...] Han DO CHEMISTRY ORDERABLES Performing Organization Address City/[facility]/ZIP Code Phon e Number [address] Phosphorus (01/30/2022 4:10 AM EDT) P athologist Signature Phosphorus 4.0 2.5 - 4.5 [facility] mg/dL [facility] LABORATORY Specimen Anatomical Collection Method Collection Time Receive d Time (Source) Location / / Volume Laterality Blood 01/30/2022 4:10 AM 2 4:36 EDT AM EDT Resulting Agency Comment Spec In Lab Gela Novak MD CHEMISTRY ORDERABLES Performing Organization Address City/[facility]/[place] [address] Magnesium (01/30/2022 4:10 AM EDT) P athologist Signature Magnesium 0.92 0.69 - 1.07 [facility] MANDO mmol/L [facility] LABORATORY Specimen Anatomical Collection Method Collection Time Receive d Time (Source) Location / / Volume Laterality Blood 01/30/2022 4:10 AM 2 4:36 EDT AM EDT Resulting Agency Comment Spec In Lab Gela Novak MD CHEMISTRY ORDERABLES Performing Organization Address City/[facility]/[place] [address] POCT Glucose (01/30/2022 12:07 AM EDT) P athologist Signature POC Glucose 115 65 - 199 [facility] mg/dL [facility] LABORATORY Comment: Supplemental ranges: <140 mg/dL before meals <180 mg/dL all other times of the day Specimen Anatomical Collection Method Collection Time Receive d Time (Source) Location / / Volume Laterality Blood 01/30/2022 12:07 01/30/2022 AM EDT 12:07 AM EDT Beck Sanz MD POINT OF CARE TEST ORDERABLE S Performing Organization Address City/State/[place] [address] POCT Glucose (01/29/2022 9:40 PM EDT) athologist Signature POC Glucose 128 65 - 199 [facility] mg/dL [facility] LABORATORY Comment: Supplemental ranges: <140 mg/dL before meals <180 mg/dL all other times of the day Specimen Anatomical Collection Method Collection Time Receive d Time (Source) Location / / Volume Laterality Blood 01/29/2022 9:40 PM 2 9:40 EDT PM EDT Beck Sanz MD POINT OF CARE TEST ORDERABLE S Performing Organization Address City/[facility]/ZIP Code Phon e Number [address] (ABNORMAL) Phosphorus (01/29/2022 9:35 PM EDT) athologist Signature Phosphorus 4.9 (H) 2.5 - 4.5 [facility] mg/dL [facility] LABORATORY Specimen Anatomical Collection Method Collection Time Receive d Time (Source) Location / / Volume Laterality Blood 01/29/2022 9:35 PM 2 9:46 EDT PM EDT Resulting Agency Comment Spec In Lab Angelina Reynoso MD CHEMISTRY ORDERABLES Performing Organization Address City/State/ZIP Code Phon e Number [address] Scan, Peripheral Blood (01/29/2022 2:55 AM EDT) athologist Signature Plat Estimate Normal [facility] LABORATORY RBC Morphology Normal [facility] LABORATORY Specimen Anatomical Collection Method Collection Time Receive d Time (Source) Location / / Volume Laterality Blood 01/29/2022 2:55 AM 2 3:06 EDT AM EDT Resulting Agency Comment Spec In Lab Cristina Hillman APRN HEMATOLOGY ORDERABLES Performing Organization Address City/State/[place] [address] (ABNORMAL) Differential, Automated (01/29/2022 2:55 AM EDT) [facility] Method Time Signature Neutrophils % 47.3 % [facility] LABORATORY Neutr Abs (ANC) 13.86 (H) 1.70 - [facility] 6.10 [facility] x10(3)/[facility] LABORATORY Lymphocytes % 8.8 % [facility] LABORATORY Lymphocytes Abs 2.6 0.9 - 3.2 [facility] x10(3)/[facility] LABORATORY Monocytes % 9.4 % [facility] LABORATORY Monocyte Abs 2.8 (H) 0.3 - 0.9 [facility] x10(3)/[facility] LABORATORY Eosinophils % 1.1 % [facility] LABORATORY Eosinophils Abs 0.3 0.0 - 0.4 [facility] x10(3)/[facility] LABORATORY Basophils % 0.2 % [facility] LABORATORY Basophils Abs 0.1 0.0 - 0.1 [facility] x10(3)/[facility] LABORATORY Immature Gran % 33.20 % [facility] LABORATORY Comment: Immature granulocytes(IG's)percentage an d absolute [...] Comment Spec In Lab Gemma B Pentland ASSISTANT PROFESSOR OF SOCIOLOGY HEMATOLOGY ORDERABLES Performing Organization Address City/State/[place] [address] (ABNORMAL) Hemogram (01/29/2022 2:55 AM EDT) Analysis Performed At Patho logist Time Signature WBC 29.4 (H) 4.0 - 9.5 [facility] x[facility](3[facility] LABORATORY RBC 3.34 (L) 4.58 - [facility] 5.54 [facility] x10(6)/[facility] LABORATORY Hemoglobin 10.7 (L) 13.7 - [facility] 16.5 g/dL [facility] LABORATORY Hematocrit 31.3 (L) 40.5 - [facility] 48.5 % [facility] LABORATORY MCV 93.7 (H) 82.9 - [facility] 93.1 [facility] LABORATORY MCH 32.0 27.5 - [facility] 32.1 pg [facility] LABORATORY MCHC 34.2 32.0 - [facility] 35.7 g/dL [facility] LABORATORY Platelets 148 145 - 357 [facility] x10(3)/[facility] LABORATORY RDWSD 44.0 36.0 - [facility] 45.0 [facility] LABORATORY RDWCV 13.0 11.4 - [facility] 13.8 % [facility] LABORATORY MPV 10.7 7.6 - 12.9 [facility] LABORATORY nRBC % Auto 0.0 % [facility] LABORATORY nRBC Abs Auto 0.000 0.000 - [facility] 0.000 [facility] x10(3)/[facility] LABORATORY Specimen Anatomical Collection Method Collection Time Receive d Time (Source) Location / / Volume Laterality Blood 01/29/2022 2:55 AM 2 3:06 EDT AM EDT Resulting Agency Comment Spec In Lab Gemma B Pentland ASSISTANT PROFESSOR OF SOCIOLOGY HEMATOLOGY ORDERABLES Performing Organization Address City/State/[place] [address] (ABNORMAL) CK (01/29/2022 2:55 AM EDT) athologist Signature CK, Total 7,723 (H) 0 - 200 [facility] unit/L [facility] LABORATORY Comment: result rechecked-KS Specimen Anatomical Collection Method Collection Time Receive d Time (Source) Location / / Volume Laterality Blood 01/29/2022 2:55 AM 2 3:06 EDT AM EDT Resulting Agency Comment Spec In Lab Gemma B Pentland ASSISTANT PROFESSOR OF SOCIOLOGY CHEMISTRY ORDERABLES Performing Organization Address City/State/[place] [address] (ABNORMAL) Basic Metabolic Panel (non-fasting) (01/29/2022 2:55 AM EDT) athologist Signature Glucose Lvl 124 65 - 199 [facility] mg/dL [facility] LABORATORY Comment: Diabetes: >=200 mg/dL plus symp toms BUN 34 (H) 10 - 20 mg/dL [facility] LABORATORY Comment: result rechecked-KS Creatinine 3.22 (H) 0.80 - 1.50 mg/dL [facility] LABORATORY Comment: result rechecked-KS Sodium 130 (L) 135 - 145 mmol/L [facility] LABORATORY Potassium 4.8 3.5 - 5.0 mmol/L [facility] LABORATORY Comment: Please note: ??Patients with WBC >100,00 0 may have falsely elevated Potassium levels. ??For accurate Potassium quantif ication in these patients send serum separator tube (gold top) for subsequent determinations. ??Contact the Clinical Chemistry Laboratory if there are any qu estions. Chloride 98 98 - 107 mmol/L [facility] LABORATORY CO2 24 22 - 31 mmol/L [facility] LABORATORY Anion Gap 8 5 - 15 mmol/L [facility] LABORATORY Calcium 7.6 (L) 8.5 - 10.5 mg/dL [facility] LABORATORY Estimated GFR 26 (L) >=60 mL/min/1.73 m?? [facility] LABORATORY Comment: This patient's estimated [...] Han DO CHEMISTRY ORDERABLES Performing Organization Address City/[facility]/ZIP Code Phon e Number [address] Phosphorus (01/29/2022 2:55 AM EDT) P athologist Signature Phosphorus 3.2 2.5 - 4.5 JOSH MANDO mg/dL [facility] LABORATORY Specimen Anatomical Collection Method Collection Time Receive d Time (Source) Location / / Volume Laterality Blood 01/29/2022 2:55 AM 2 3:06 EDT AM EDT Resulting Agency Comment Spec In Lab Gela Novak MD CHEMISTRY ORDERABLES Performing Organization Address City/[facility]/[place] [address] Magnesium (01/29/2022 2:55 AM EDT) P athologist Signature Magnesium 0.85 0.69 - 1.07 JOS[facility] VELASQUEZMANDO mmol/L [facility] LABORATORY Specimen Anatomical Collection Method Collection Time Receive d Time (Source) Location / / Volume Laterality Blood 01/29/2022 2:55 AM 2 3:06 EDT AM EDT Resulting Agency Comment Spec In Lab Gela Novak MD CHEMISTRY ORDERABLES Performing Organization Address City/[facility]/[place] [address] (ABNORMAL) Blood Gas Venous ([facility]) (01/28/2022 1:25 PM EDT) Analysis Performed At Patho logist Time Signature pH Honorio 7.40 7.32 - [facility] 7.42 [facility] LABORATORY pCO2 Honorio 44 41 - 51 [facility] LABORATORY pO2 Honorio 37 25 - 40 [facility] LABORATORY HCO3 Honorio 26.5 mmol/L [facility] LABORATORY BE Honorio 1.6 mmol/L [facility] LABORATORY Hgb Blood Gas 12.1 (L) 13.7 - [facility] 16.5 g/dL [facility] LABORATORY O2HB Honorio 71.4 % [facility] LABORATORY COHB Honorio 0.7 % [facility] LABORATORY Comment: Nonsmokers: 0.5-1.5% COHB Smokers: Variable, but usually less than 10% Toxic: 20-30% COHB Lethal: Greater than 60% COHB METHB Honorio 0.1 <=1.5 % [facility] LABORATORY Na Whole Blood 130 (L) 135 - 145 mmol/L [facility] LABORATORY K Whole Blood 4.6 3.5 - 5.0 mmol/L [facility] LABORATORY Comment: Please note: Patients with WBC >100,000 may have falsely elevated Potassium levels. Contact the Clinical Chemistry L aboratory if there are any questions. ICa Whole Blood 1.16 1.15 - 1.33 mmol/L [facility] LABORATORY Comment: Note: ??Total bilirubin higher than 20 m g/dL may lead to falsely low ionized calcium. CL Whole Blood 103 98 - 107 mmol/L [facility] LABORATORY Gluc Whole Bld 130 65 - 199 mg/dL [facility] LABORATORY Comment: Diabetes: >=200 mg/dL plus symp toms Lactate WB 1.0 0.5 - 2.2 mmol/L [facility] LABORATORY BGas Source Venous [facility] LABORATORY Temp Honorio 37.3 Celsius [facility] LABORATORY Specimen Anatomical Collection Method Collection Time Receive d Time (Source) Location / / Volume Laterality Blood Venous Draw / 01/28/2022 1:25 PM 01/29/20 1:36 Unknown EDT PM EDT Resulting Agency Comment Spec In Lab Angelina Reynoso MD CHEMISTRY ORDERABLES Performing Organization Address City/State/[place] [address] (ABNORMAL) Blood Gas Venous ([facility]) (01/28/2022 6:20 AM EDT) Analysis Performed At Patho logist Time Signature pH Honorio 7.41 7.32 - [facility] 7.42 [facility] LABORATORY pCO2 Honorio 42 41 - 51 [facility] LABORATORY pO2 Honorio 30 25 - 40 [facility] LABORATORY HCO3 Honorio 26.3 mmol/L [facility] LABORATORY BE Honorio 1.7 mmol/L [facility] LABORATORY Hgb Blood Gas 12.4 (L) 13.7 - [facility] 16.5 g/dL [facility] LABORATORY O2HB Honorio 64.2 % [facility] LABORATORY COHB Honorio 0.8 % [facility] LABORATORY Comment: Nonsmokers: 0.5-1.5% COHB Smokers: Variable, but usually less than 10% Toxic: 20-30% COHB Lethal: Greater than 60% COHB METHB Honorio 0.3 <=1.5 % [facility] LABORATORY Na Whole Blood 130 (L) 135 - 145 mmol/L [facility] LABORATORY K Whole Blood 4.8 3.5 - 5.0 mmol/L [facility] LABOR[facility]ORY Comment: Please note: Patients with WBC >100,000 may have falsely elevated Potassium levels. Contact the Clinical Chemistry L aboratory if there are any questions. ICa Whole Blood 1.17 1.15 - 1.33 mmol/L [facility] LABORATORY Comment: Note: ??Total bilirubin higher than 20 m g/dL may lead to falsely low ionized calcium. CL Whole Blood 103 98 - 107 mmol/L [facility] LABORATORY Gluc Whole Bld 112 65 - 199 mg/dL [facility] LABORATORY Comment: Diabetes: >=200 mg/dL plus symp toms Lactate WB 1.1 0.5 - 2.2 mmol/L [facility] LABORAT[facility] FIO2 Honorio 21 % [facility] LABORAT[facility] BGas Source Venous [facility] LABORATORY Specimen Anatomical Collection Method Collection Time Receive d Time (Source) Location / / Volume Laterality Blood Venous Draw / 01/28/2022 6:20 AM 01/29/20 22 6:28 Unknown EDT AM EDT Resulting Agency Comment Spec In Lab Angelina Reynoso MD CHEMISTRY ORDERABLES Performing Organization Address City/State/ZIP Code Phon e Number [address] (ABNORMAL) CK (01/28/2022 6:20 AM EDT) P athologist Signature CK, Total 11,287 (H) 0 - 200 [facility] unit/L [facility] LABORATORY Specimen Anatomical Collection Method Collection Time Receive d Time (Source) Location / / Volume Laterality Blood 01/28/2022 6:20 AM 2 6:27 EDT AM EDT Resulting Agency Comment Spec In Lab Cristina Hillman APRN CHEMISTRY ORDERABLES Performing Organization Address City/[facility]/ZIP Code Phon e Number [address] (ABNORMAL) _Urinalysis with microscopic (01/28/2022 6:00 AM EDT) Patholo gist Method Time Signature Glucose UA 100 (A) Negative [facility] mg/dL [facility] LABORATORY Protein UA >=300 (A) Negative [facility] LABORATORY Bilirubin UA Negative Negative [facility] mg/dL [facility] LABORATORY Comment: Clinical correlation required for positi ve Urine Bilirubin results as false positive may occur with some drugs and d rug related products. If a false positive is suspected a serum total bili villaseñor should be considered if clinically indicated. Urobilinogen UA Normal Normal mg/dL [facility] LABORATORY pH UA 7.5 5.0 - 8.0 [facility] LABORATORY Blood UA Large (A) Negative mg/dL [facility]ORATORY Ketones UA Negative Negative mg/dL [facility]OR[facility] Nitrite UA Negative Negative [facility] LABORATORY Leukocytes UA Negative Negative [facility] LABORATORY Appearance UA Clear Clear [facility] LABORATORY Spec [place] UA 1.025 1.006 - 1.030 [facility] LABORATORY Color UA Yellow [facility] LABORATORY RBC UA 4 (H) 0 - 3 /HPF [facility] LABORATORY WBC UA 1 0 - 3 /HPF [facility] LABORATORY Bacteria UA Rare (A) None /HPF [facility] LABORATORY Specimen Anatomical Collection Method Collection Time Receive d Time (Source) Location / / Volume Laterality Urine 01/28/2022 6:00 AM 2 6:40 EDT AM EDT Resulting Agency Comment Spec In Lab Beck Sanz MD URINE ORDERABLES Performing Organization Address [facility]/[place] [address] Blood culture (01/28/2022 3:45 AM EDT) [facility] Method Time Signature Blood Culture No growth [facility] at 5 days. [facility] LABORATORY Specimen Anatomical Collection Method Collection Time Receive d Time (Source) Location / / Volume Laterality Blood 01/28/2022 3:45 AM 2 5:37 EDT AM EDT Resulting Agency Comment Spec In Lab Beck Sanz MD MICROBIOLOGY - BLOOD ORDERAB LES Performing Organization Address City/[facility]/ZIP Code Phon e Number [address] Scan, Peripheral Blood (01/28/2022 12:18 AM EDT) [place] Method Time Signature Plat Estimate Decreased [facility] LABORATORY RBC Morphology Normal [facility] LABORATORY Specimen Anatomical Collection Method Collection Time Receive d Time (Source) Location / / Volume Laterality Blood 01/28/2022 12:18 01/28/2022 AM EDT 12:24 AM EDT Resulting Agency Comment Spec In Lab Cristina Hillman ASSISTANT PROFESSOR OF SOCIOLOGY HEMATOLOGY ORDERABLES Performing Organization Address City/State/[place] [address] (ABNORMAL) Blood Gas Venous ([facility]) (01/28/2022 12:18 AM EDT) Analysis Performed At Patho logist Time Signature pH Honorio 7.39 7.32 - [facility] 7.42 [facility] LABORATORY pCO2 Honorio 44 41 - 51 [facility] LABORATORY pO2 Honorio 34 25 - 40 [facility] LABORATORY HCO3 Honorio 25.9 mmol/L [facility] LABORATORY BE Honorio 1.0 mmol/L [facility] LABORATORY Hgb Blood Gas 12.8 (L) 13.7 - [facility] 16.5 g/dL [facility] LABORATORY O2HB Honorio 68.7 % [facility] LABORATORY COHB Honorio 0.6 % [facility] LABORATORY Comment: Nonsmokers: 0.5-1.5% COHB Smokers: Variable, but usually less than 10% Toxic: 20-30% COHB Lethal: Greater than 60% COHB METHB Honorio 0.3 <=1.5 % [facility] LABORATORY Na Whole Blood 130 (L) 135 - 145 mmol/L [facility] LABORATORY K Whole Blood 4.4 3.5 - 5.0 mmol/L [facility] LABORATORY Comment: Please note: Patients with WBC >100,000 may have falsely elevated Potassium levels. Contact the Clinical Chemistry L aboratory if there are any questions. ICa Whole Blood 1.14 (L) 1.15 - 1.33 mmol/L [facility] LABORATORY Comment: Note: ??Total bilirubin higher than 20 m g/dL may lead to falsely low ionized calcium. CL Whole Blood 102 98 - 107 mmol/L [facility] LABORATORY Gluc Whole Bld 120 65 - 199 mg/dL [facility] LABORATORY Comment: Diabetes: >=200 mg/dL plus symp toms Lactate WB 1.0 0.5 - 2.2 mmol/L [facility] LABORAT[facility] FIO2 Honorio 21 % [facility] LABOR[facility] BGas Source Venous [facility] LABORATORY Specimen Anatomical Collection Method Collection Time Receive d Time (Source) Location / / Volume Laterality Blood Venous Draw / 01/28/2022 12:18 01/28/2022 Unknown AM EDT 12:25 AM EDT Resulting Agency Comment Spec In Lab Angelina Reynoso MD CHEMISTRY ORDERABLES Performing Organization Address City/State/[place] [address] (ABNORMAL) Differential, Automated (01/28/2022 12:18 AM EDT) [facility] Method Time Signature Neutrophils % 56.1 % [facility] LABORATORY Neutr Abs (ANC) 13.41 (H) 1.70 - [facility] 6.10 [facility] x10(3)/[facility] LABORATORY Lymphocytes % 7.3 % [facility] LABORATORY Lymphocytes Abs 1.7 0.9 - 3.2 [facility] x10(3)/[facility] LABORATORY Monocytes % 6.7 % [facility] LABORATORY Monocyte Abs 1.6 (H) 0.3 - 0.9 [facility] x10(3)/[facility] LABORATORY Eosinophils % 1.0 % [facility] LABORATORY Eosinophils Abs 0.2 0.0 - 0.4 [facility] x10(3)/[facility] LABORATORY Basophils % 0.1 % [facility] LABORATORY Basophils Abs 0.0 0.0 - 0.1 [facility] x10(3)/[facility] LABORATORY Immature Gran % 28.80 % [facility] LABORATORY Comment: Immature granulocytes(IG's)percentage an d absolute [...] Comment Spec In Lab Gemma B Pentland ASSISTANT PROFESSOR OF SOCIOLOGY HEMATOLOGY ORDERABLES Performing Organization Address City/State/ZIP Code Phon e Number [address] (ABNORMAL) Hemogram (01/28/2022 12:18 AM EDT) Analysis Performed At Patho logist Time Signature WBC 23.9 (H) 4.0 - 9.5 [facility] MAND[facility] x10(3)/[facility] LABORATORY RBC 3.63 (L) 4.58 - JOSH MANDO 5.54 [facility] x10(6)/[facility] LABORATORY Hemoglobin 11.9 (L) 13.7 - [facility] 16.5 g/dL [facility] LABORATORY Hematocrit 34.7 (L) 40.5 - [facility] 48.5 % [facility] LABORATORY MCV 95.6 (H) 82.9 - [facility] 93.1 [facility] LABORATORY MCH 32.8 (H) 27.5 - JOS[facility] MANDO 32.1 pg [facility] LABORATORY MCHC 34.3 32.0 - [facility] 35.7 g/dL [facility] LABORATORY Platelets 106 (L) 145 - 357 [facility] x10(3)/[facility] LABORATORY RDWSD 43.9 36.0 - [facility] 45.0 [facility] LABORATORY RDWCV 12.8 11.4 - [facility] 13.8 % [facility] LABORATORY MPV 10.5 7.6 - 12.9 [facility] nRBC % Auto 0.0 % [facility] LABORATORY nRBC Abs Auto 0.000 0.000 - [facility] MAND[facility] 0.000 [facility] x10(3)/[facility] LABORATORY Specimen Anatomical Collection Method Collection Time Receive d Time (Source) Location / / Volume Laterality Blood 01/28/2022 12:18 01/28/2022 AM EDT 12:24 AM EDT Resulting Agency Comment Spec In Lab Gemma B Pentland ASSISTANT PROFESSOR OF SOCIOLOGY HEMATOLOGY ORDERABLES Performing Organization Address City/State/[place] [address] (ABNORMAL) Hepatic Function Panel (01/28/2022 12:18 AM EDT) athologist Signature Total Protein 4.5 (L) 6.1 - 8.0 [facility] g/dL [facility] LABORATORY Albumin 2.0 (L) 3.2 - 5.2 [facility] g/dL [facility] LABORATORY AST 418 (H) 0 - 39 [facility] unit/L [facility] LABORATORY ALT 237 (H) 0 - 55 [facility] unit/L [facility] LABORATORY Alk Phos 88 40 - 130 [facility] unit/L [facility] LABORATORY Total 0.4 0.2 - 1.3 [facility] Bilirubin mg/dL [facility] LABORATORY Bili, Direct 0.3 0.0 - 0.3 [facility] mg/dL [facility] LABORATORY Specimen Anatomical Collection Method Collection Time Receive d Time (Source) Location / / Volume Laterality Blood 01/28/2022 12:18 01/28/2022 AM EDT 12:24 AM EDT Resulting Agency Comment Spec In Lab [facility] CHEMISTRY ORDERABLES Performing Organization Address City/State/[place] [address] (ABNORMAL) Basic Metabolic Panel (non-fasting) (01/28/2022 12:18 AM EDT) athologist [facility] Glucose Lvl 118 65 - 199 [facility] mg/dL [facility] LABORATORY Comment: Diabetes: >=200 mg/dL plus symp toms BUN 20 10 - 20 mg/dL [facility] LABORATORY Creatinine 2.03 (H) 0.80 - 1.50 mg/dL [facility] LABORATORY Sodium 136 135 - 145 mmol/L [facility] LABORATORY Potassium 4.6 3.5 - 5.0 mmol/L [facility] LABORATORY Comment: Please note: ??Patients with WBC >100,00 0 may have falsely elevated Potassium levels. ??For accurate Potassium quantif ication in these patients send serum separator tube (gold top) for subsequent determinations. ??Contact the Clinical Chemistry Laboratory if there are any qu estions. Chloride 102 98 - 107 mmol/L [facility] LABORATORY CO2 25 22 - 31 mmol/L [facility] LABORATORY Anion Gap 9 5 - 15 mmol/L [facility] LABORATORY Calcium 7.9 (L) 8.5 - 10.5 mg/dL [facility] LABORATORY Estimated GFR 44 (L) >=60 mL/min/1.73 m?? [facility] LABORATORY Comment: This patient's estimated [...] Han DO CHEMISTRY ORDERABLES Performing Organization Address City/[facility]/ZIP Code Phon e Number [address] Phosphorus (01/28/2022 12:18 AM EDT) P athologist Signature Phosphorus 2.5 2.5 - 4.5 [facility] mg/dL [facility] LABORATORY Specimen Anatomical Collection Method Collection Time Receive d Time (Source) Location / / Volume Laterality Blood 01/28/2022 12:18 01/28/2022 AM EDT 12:24 AM EDT Resulting Agency Comment Spec In Lab Gela Novak MD CHEMISTRY ORDERABLES Performing Organization Address City/[facility]/ZIP Code Phon e Number [address] Magnesium (01/28/2022 12:18 AM EDT) athologist Signature Magnesium 0.81 0.69 - 1.07 [facility] mmol/L [facility] LABORATORY Specimen Anatomical Collection Method Collection Time Receive d Time (Source) Location / / Volume Laterality Blood 01/28/2022 12:18 01/28/2022 AM EDT 12:24 AM EDT Resulting Agency Comment Spec In Lab Gela Novak MD CHEMISTRY ORDERABLES Performing Organization Address City/[facility]/[place] [address] (ABNORMAL) CK (01/28/2022 12:18 AM EDT) athologist [facility] CK, Total 14,277 (H) 0 - 200 [facility] unit/[facility] LABORATORY Specimen Anatomical Collection Method Collection Time Receive d Time (Source) Location / / Volume Laterality Blood 01/28/2022 12:18 01/28/2022 AM EDT 12:24 AM EDT Resulting Agency Comment Spec In Lab Cristina Hillman APRN CHEMISTRY ORDERABLES Performing Organization Address City/[facility]/[place] [address] POCT Glucose (01/27/2022 8:29 PM EDT) athologist [facility] POC Glucose 104 65 - 199 [facility] mg/dL [facility] LABORATORY Comment: Supplemental ranges: <140 mg/dL before meals <180 mg/dL all other times of the day Specimen Anatomical Collection Method Collection Time Receive d Time (Source) Location / / Volume Laterality Blood 01/27/2022 8:29 PM 8:29 EDT PM EDT Beck Sanz MD POINT OF CARE TEST ORDERABLE S Performing Organization Address City/[facility]/[place] [address] (ABNORMAL) Blood Gas Venous ([facility]) (01/27/2022 6:06 PM EDT) Analysis Performed At Patho logist [facility] pH Honorio 7.42 7.32 - [facility] 7.42 [facility] LABORATORY pCO2 Honorio 42 41 - 51 [facility] LABORATORY pO2 Honorio 35 25 - 40 [facility] LABORATORY HCO3 Honorio 26.5 mmol/L [facility] LABORATORY BE Honorio 2.0 mmol/L [facility] LABORATORY Hgb Blood Gas 11.9 (L) 13.7 - [facility] 16.5 g/dL [facility] LABORATORY O2HB Honorio 72.0 % [facility] LABORATORY COHB Honorio 0.8 % [facility] LABORATORY Comment: Nonsmokers: 0.5-1.5% COHB Smokers: Variable, but usually less than 10% Toxic: 20-30% COHB Lethal: Greater than 60% COHB METHB Honorio 0.2 <=1.5 % [facility] LABORATORY Na Whole Blood 130 (L) 135 - 145 mmol/L [facility] LABORATORY K Whole Blood 4.3 3.5 - 5.0 mmol/L [facility] LABORATORY Comment: Please note: Patients with WBC >100,000 may have falsely elevated Potassium levels. Contact the Clinical Chemistry L aboratory if there are any questions. ICa Whole Blood 1.14 (L) 1.15 - 1.33 mmol/L [facility] LABORATORY Comment: Note: ??Total bilirubin higher than 20 m g/dL may lead to falsely low ionized calcium. CL Whole Blood 103 98 - 107 mmol/L [facility] LABORATORY Gluc Whole Bld 142 65 - 199 mg/dL [facility] LABORATORY Comment: Diabetes: >=200 mg/dL plus symp toms Lactate WB 1.2 0.5 - 2.2 mmol/L [facility] LABORATORY BGas Source Venous [facility] LABORATORY Specimen Anatomical Collection Method Collection Time Receive d Time (Source) Location / / Volume Laterality Blood Venous Draw / 01/27/2022 6:06 PM 01/28/20 6:06 Unknown EDT PM EDT Resulting Agency Comment Spec In Lab Angelina Reynoso MD CHEMISTRY ORDERABLES Performing Organization Address City/State/[place] [address] (ABNORMAL) CK (01/27/2022 5:55 PM EDT) athologist Signature CK, Total 15,910 (H) 0 - 200 [facility] unit/L [facility] LABORATORY Specimen Anatomical Collection Method Collection Time Receive d Time (Source) Location / / Volume Laterality Blood 01/27/2022 5:55 PM 2 6:05 EDT PM EDT Resulting Agency Comment Spec In Lab Cristina Hillman ASSISTANT PROFESSOR OF SOCIOLOGY CHEMISTRY ORDERABLES Performing Organization Address City/State/[place] [address] POCT Glucose (01/27/2022 4:28 PM EDT) athologist Signature POC Glucose 99 65 - 199 [facility] Comment: Supplemental ranges: <140 mg/dL before meals <180 mg/dL all other times of the day Specimen Anatomical Collection Method Collection Time Receive d Time (Source) Location / / Volume Laterality Blood 01/27/2022 4:28 PM 2 4:28 EDT PM EDT Beck Sanz MD POINT OF CARE TEST ORDERABLE S Performing Organization Address City/[facility]/[place]IP [place] [address] POCT Glucose (01/27/2022 12:13 PM EDT) athologist Signature POC Glucose 108 65 - 199 [facility] Comment: Supplemental ranges: <140 mg/dL before meals <180 mg/dL all other times of the day Specimen Anatomical Collection Method Collection Time Receive d Time (Source) Location / / Volume Laterality Blood 01/27/2022 12:13 01/27/2022 PM EDT 12:13 PM EDT Beck Sanz MD POINT OF CARE TEST ORDERABLE S Performing Organization Address City/State/[place] [address] (ABNORMAL) BLOOD GAS 2 VENOUS (01/27/2022 12:11 PM EDT) Analysis Performed At Patho logist Time Signature pH Honorio 7.41 7.32 - [facility] 7.42 [facility]OR[facility]ORY pCO2 Honorio 42 41 - 51 [facility] LABORATORY pO2 Honorio 34 25 - 40 [facility] LABORATORY HCO3 Honorio 25.7 mmol/L [facility] LABORAT[facility] BE Honorio 1.1 mmol/L [facility] Hgb Blood Gas 13.1 (L) 13.7 - [facility] 16.5 g/dL [facility] O2HB Honorio 70.3 % [facility] LABORATORY COHB Honoroi 1.0 % [facility] Comment: Nonsmokers: 0.5-1.5% COHB Smokers: Variable, but usually less than 10% Toxic: 20-30% COHB Lethal: Greater than 60% COHB METHB Honorio 0.2 <=1.5 % [facility]ORAT[facility] Na Whole Blood 130 (L) 135 - 145 mmol/L [facility]ORAT[facility] K Whole Blood 4.3 3.5 - 5.0 mmol/L [facility] Comment: Please note: Patients with WBC >100,000 may have falsely elevated Potassium levels. Contact the Clinical Chemistry L aboratory if there are any questions. ICa Whole Blood 1.13 (L) 1.15 - 1.33 mmol/L [facility] Comment: Note: ??Total bilirubin higher than 20 m g/dL may lead to falsely low ionized calcium. CL Whole Blood 102 98 - 107 mmol/L [facility]OR[facility]ORY Gluc Whole Bld 127 65 - 199 mg/dL [facility] Comment: Diabetes: >=200 mg/dL plus symp toms Lactate WB 1.1 0.5 - 2.2 mmol/L [facility] LABORAT[facility] FIO2 Honorio 21 % [facility] BGas Source Venous [facility] LABOR[facility]ORY Specimen Anatomical Collection Method Collection Time Receive d Time (Source) Location / / Volume Laterality Blood 01/27/2022 12:11 01/27/2022 PM EDT 12:11 PM EDT Beck Sanz MD CHEMISTRY ORDERABLES Performing Organization Address City/State/[place] [address] (ABNORMAL) Creatinine (01/27/2022 12:05 PM EDT) Analysis Performed At Patho logist Time Signature Creatinine 2.06 (H) 0.80 - [facility] 1.50 mg/dL [facility] LAB[facility] Estimated GFR 44 (L) >=60 [facility] mL/min/1.[address]? [facility] Comment: This patient's estimated GFR [...] Reynoso MD CHEMISTRY ORDERABLES Performing Organization Address City/[facility]/[place] [address] Scan, Peripheral Blood (01/27/2022 10:22 AM EDT) Patholo gist Method Time Signature Plat Estimate Decreased [facility] RBC Morphology Normal [facility]ORY Specimen Anatomical Collection Method Collection Time Receive d Time (Source) Location / / Volume Laterality Blood 01/27/2022 10:22 01/27/2022 AM EDT 10:38 AM EDT Resulting Agency Comment Spec In Lab Cristina Hillman APRN HEMATOLOGY ORDERABLES Performing Organization Address City/State/[place] [address] (ABNORMAL) Differential, Automated (01/27/2022 10:22 AM EDT) [facility] Method Time Signature Neutrophils % 61.9 % [facility] LABORATORY Neutr Abs (ANC) 11.72 (H) 1.70 - [facility] 6.10 [facility] x10(3)/[facility] LABORATORY Lymphocytes % 7.8 % [facility] LABORATORY Lymphocytes Abs 1.5 0.9 - 3.2 [facility] x10(3)/[facility] LABORATORY Monocytes % 5.6 % [facility] LABORATORY Monocyte Abs 1.1 (H) 0.3 - 0.9 [facility] x10(3)/[facility] LABORATORY Eosinophils % 1.1 % [facility] LABORATORY Eosinophils Abs 0.2 0.0 - 0.4 [facility] x10(3)/[facility] LABORATORY Basophils % 0.1 % [facility] LABORATORY Basophils Abs 0.0 0.0 - 0.1 [facility] x10(3)/[facility] LABORATORY Immature Gran % 23.50 % [facility]ORATORY Comment: Immature granulocytes(IG's)percentage an d absolute [...] Organization Address City/State/[place] [address] (ABNORMAL) Hemogram (01/27/2022 10:22 AM EDT) [facility] Method Time Signature WBC 18.9 (H) 4.0 - 9.5 [facility] x10(3)/[facility] LABORATORY RBC 3.61 (L) 4.58 - [facility] 5.54 [facility] x10(6)/[facility] LABORATORY Hemoglobin 11.6 (L) 13.7 - [facility] 16.5 g/dL [facility] LAB[facility] Hematocrit 34.2 (L) 40.5 - [facility] 48.5 % [facility] LAB[facility] MCV 94.7 (H) 82.9 - [facility] 93.1 [facility] LABORATORY MCH 32.1 27.5 - [facility] 32.1 pg [facility] MCHC 33.9 32.0 - [facility] 35.7 g/dL [facility] LAB[facility]ORY Platelets 100 (L) 145 - 357 [facility] x10(3)/[facility] LABORATORY RDWSD 43.3 36.0 - [facility] 45.0 [facility] LABORATORY RDWCV 12.6 11.4 - [facility] 13.8 % [facility] LABORATORY MPV 10.6 7.6 - 12.9 [facility] LABORATORY nRBC % Auto 0.1 % [facility] LABORATORY nRBC Abs Auto 0.020 (H) 0.000 - [facility] 0.000 [facility] x10(3)/[facility] LABORATORY Specimen Anatomical Collection Method Collection Time Receive d Time (Source) Location / / Volume Laterality Blood 01/27/2022 10:22 01/27/2022 AM EDT 10:38 AM EDT Resulting Agency Comment Spec In Lab Cristina Hillman APRN HEMATOLOGY ORDERABLES Performing Organization Address City/State/[place] [address] POCT Glucose (01/27/2022 8:30 AM EDT) P athologist Signature POC Glucose 103 65 - 199 [facility] mg/dL [facility] Comment: Supplemental ranges: <140 mg/dL before meals <180 mg/dL all other times of the day Specimen Anatomical Collection Method Collection Time Receive d Time (Source) Location / / Volume Laterality Blood 01/27/2022 8:30 AM 8:30 EDT AM EDT Beck Sanz MD POINT OF CARE TEST ORDERABLE S Performing Organization Address City/State/[place] [address] (ABNORMAL) Blood Gas Venous ([facility]) (01/27/2022 5:36 AM EDT) P athologist Signature pH Honorio 7.37 7.32 - [facility] 7.42 [facility] LABOR[facility]ORY pCO2 Honorio 47 41 - 51 [facility] LABORATORY pO2 Honorio 33 25 - 40 [facility] LABORATORY HCO3 Honorio 26.4 mmol/L [facility] LABORATORY BE Honorio 1.2 mmol/L [facility]ORATORY Hgb Blood Gas 16.1 13.7 - [facility] 16.5 g/dL [facility] O2HB Honorio 66.2 % [facility] LABORATORY COHB Honorio 1.5 % [facility] LAB[facility]ATORY Comment: Nonsmokers: 0.5-1.5% COHB Smokers: Variable, but usually less than 10% Toxic: 20-30% COHB Lethal: Greater than 60% COHB METHB Honorio 0.3 <=1.5 % [facility]ORAT[facility] Na Whole Blood 133 (L) 135 - 145 mmol/L [facility] LABORATORY K Whole Blood 4.4 3.5 - 5.0 mmol/L [facility] Comment: Please note: Patients with WBC >100,000 may have falsely elevated Potassium levels. Contact the Clinical Chemistry L aboratory if there are any questions. ICa Whole Blood 1.14 (L) 1.15 - 1.33 mmol/L [facility] Comment: Note: ??Total bilirubin higher than 20 m g/dL may lead to falsely low ionized calcium. CL Whole Blood 102 98 - 107 mmol/L [facility]ORATORY Gluc Whole Bld 106 65 - 199 mg/dL [facility] LABOR[facility] Comment: Diabetes: >=200 mg/dL plus symp toms Lactate WB 1.2 0.5 - 2.2 mmol/L [facility] LABORAT[facility] BGas Source Venous [facility] LABORATORY Specimen Anatomical Collection Method Collection Time Receive d Time (Source) Location / / Volume Laterality Blood Venous Draw / 01/27/2022 5:36 AM 01/28/20 22 5:45 Unknown EDT AM EDT Resulting Agency Comment Spec In Lab Angelina Reynoso MD CHEMISTRY ORDERABLES Performing Organization Address City/[facility]/[place] [address] (ABNORMAL) CK (01/27/2022 5:36 AM EDT) P athologist Signature CK, Total 21,662 (H) 0 - 200 [facility] LABORATORY Specimen Anatomical Collection Method Collection Time Receive d Time (Source) Location / / Volume Laterality Blood 01/27/2022 5:36 AM 2 5:43 EDT AM EDT Resulting Agency Comment Spec In Lab Cristina Hillman APRN CHEMISTRY ORDERABLES Performing Organization Address City/[facility]/[place] [address] (ABNORMAL) Blood Gas Venous ([facility]) (01/27/2022 1:25 AM EDT) Analysis Performed At Patho logist Time Signature pH Honorio 7.44 (H) 7.32 - [facility] 7.42 [facility] LAB[facility] pCO2 Honorio 39 (L) 41 - 51 [facility] LABORATORY pO2 Honorio 36 25 - 40 [facility] LABORATORY HCO3 Honorio 25.9 mmol/L [facility] LABORAT[facility] BE Honorio 1.6 mmol/L [facility] Hgb Blood Gas 11.8 (L) 13.7 - [facility] 16.5 g/dL [facility] O2HB Honorio 73.6 % [facility] COHB Honorio 0.6 % [facility] Comment: Nonsmokers: 0.5-1.5% COHB Smokers: Variable, but usually less than 10% Toxic: 20-30% COHB Lethal: Greater than 60% COHB METHB Honorio 0.0 <=1.5 % [facility] Na Whole Blood 132 (L) 135 - 145 mmol/L [facility] K Whole Blood 4.3 3.5 - 5.0 mmol/L [facility] Comment: Please note: Patients with WBC >100,000 may have falsely elevated Potassium levels. Contact the Clinical Chemistry L aboratory if there are any questions. ICa Whole Blood 1.11 (L) 1.15 - 1.33 mmol/L [facility] Comment: Note: ??Total bilirubin higher than 20 m g/dL may lead to falsely low ionized calcium. CL Whole Blood 104 98 - 107 mmol/L [facility]ORATORY Gluc Whole Bld 108 65 - 199 mg/dL [facility] LAB[facility] Comment: Diabetes: >=200 mg/dL plus symp toms Lactate WB 1.6 0.5 - 2.2 mmol/L [facility] BGas Source Venous [facility] LABORATORY Specimen Anatomical Collection Method Collection Time Receive d Time (Source) Location / / Volume Laterality Blood Venous Draw / 01/27/2022 1:25 AM 01/28/20 22 1:31 Unknown EDT AM EDT Resulting Agency Comment Spec In Lab Angelina Reynoso MD CHEMISTRY ORDERABLES Performing Organization Address City/State/ZIP Code Phon e Number [address] (ABNORMAL) CK (01/27/2022 1:25 AM EDT) P athologist Signature CK, Total 22,236 (H) 0 - 200 [facility] LABORATORY Specimen Anatomical Collection Method Collection Time Receive d Time (Source) Location / / Volume Laterality Blood 01/27/2022 1:25 AM 2 1:30 EDT AM EDT Resulting Agency Comment Spec In Lab Cristina Hillman APRN CHEMISTRY ORDERABLES Performing Organization Address City/[facility]/ZIP Code Phon e Number [address] (ABNORMAL) Hepatic Function Panel (01/27/2022 1:25 AM EDT) P athologist Signature Total Protein 4.3 (L) 6.1 - 8.0 [facility] Albumin 2.1 (L) 3.2 - 5.2 [facility] g/dL [facility] LABORAT[facility] AST 618 (H) 0 - 39 [facility] unit/L [facility] ALT 418 (H) 0 - 55 [facility] unit/L [facility] LAB[facility]ORY Alk Phos 82 40 - 130 [facility] unit/L [facility] LAB[facility] Total 0.9 0.2 - 1.3 [facility] Bilirubin mg/dL [facility] LABOR[facility] Bili, Direct 0.8 (H) 0.0 - 0.3 [facility] mg/dL [facility] LAB[facility]ORY Specimen Anatomical Collection Method Collection Time Receive d Time (Source) Location / / Volume Laterality Blood 01/27/2022 1:25 AM 2 1:30 EDT AM EDT Resulting Agency Comment Spec In Lab Cristina Hillman ASSISTANT PROFESSOR OF SOCIOLOGY CHEMISTRY ORDERABLES Performing Organization Address City/State/[place] [address] (ABNORMAL) Basic Metabolic Panel (non-fasting) (01/27/2022 1:25 AM EDT) P athologist Signature Glucose Lvl 112 65 - 199 [facility] mg/dL [facility] Comment: Diabetes: >=200 mg/dL plus symp toms BUN 21 (H) 10 - 20 mg/dL [facility] LABORATORY Creatinine 2.12 (H) 0.80 - 1.50 mg/dL [facility] LABORATORY Sodium 135 135 - 145 mmol/L [facility] LABORATORY Potassium 4.4 3.5 - 5.0 mmol/L [facility] LABOR[facility]ORY Comment: Please note: ??Patients with WBC >100,00 0 may have falsely elevated Potassium levels. ??For accurate Potassium quantif ication in these patients send serum separator tube (gold top) for subsequent determinations. ??Contact the Clinical Chemistry Laboratory if there are any qu estions. Chloride 104 98 - 107 mmol/L [facility]ORATORY CO2 25 22 - 31 mmol/L [facility]OR[facility]ORY Anion Gap 6 5 - 15 mmol/L [facility] LABORATORY Calcium 7.7 (L) 8.5 - 10.5 mg/dL [facility] LABORATORY Estimated GFR 42 (L) >=60 mL/min/1.73 m?? [facility] Comment: This patient's estimated [...] Organization Address City/State/ZIP Code Phon e Number [address] (ABNORMAL) Phosphorus (01/27/2022 1:25 AM EDT) P athologist Signature Phosphorus 1.6 (L) 2.5 - 4.5 [facility] mg/dL [facility] LABORATORY Specimen Anatomical Collection Method Collection Time Receive d Time (Source) Location / / Volume Laterality Blood 01/27/2022 1:25 AM 2 1:30 EDT AM EDT Resulting Agency Comment Spec In Lab Gela Novak MD CHEMISTRY ORDERABLES Performing Organization Address City/State/ZIP Code Phon e Number [address] Magnesium (01/27/2022 1:25 AM EDT) P athologist Signature Magnesium 0.72 0.69 - 1.07 [facility] mmol/L [facility] LABORATORY Specimen Anatomical Collection Method Collection Time Receive d Time (Source) Location / / Volume Laterality Blood 01/27/2022 1:25 AM 2 1:30 EDT AM EDT Resulting Agency Comment Spec In Lab Gela Novak MD CHEMISTRY ORDERABLES Performing Organization Address City/State/[place] [address] POCT Glucose (01/26/2022 8:59 PM EDT) P athologist Signature POC Glucose 83 65 - 199 [facility] mg/dL [facility] LAB[facility] Comment: Supplemental ranges: <140 mg/dL before meals <180 mg/dL all other times of the day Specimen Anatomical Collection Method Collection Time Receive d Time (Source) Location / / Volume Laterality Blood 01/26/2022 8:59 PM 2 8:59 EDT PM EDT Beck Sanz MD POINT OF CARE TEST ORDERABLE S Performing Organization Address City/[facility]/[place] [address] (ABNORMAL) Blood Gas Venous ([facility]) (01/26/2022 6:19 PM EDT) Analysis Performed At Patho logist Time Signature pH Honorio 7.34 7.32 - [facility] 7.42 [facility] LABORATORY pCO2 Honorio 48 41 - 51 [facility] LABORATORY pO2 Honorio 32 25 - 40 [facility] LABORATORY HCO3 Honorio 25.4 mmol/L [facility] LABORATORY BE Honorio -0.3 mmol/L [facility] LABORATORY Hgb Blood Gas 12.0 (L) 13.7 - [facility] 16.5 g/dL [facility] O2HB Honorio 59.2 % [facility] LABORATORY COHB Honorio 1.1 % [facility] LAB[facility]ATORY Comment: Nonsmokers: 0.5-1.5% COHB Smokers: Variable, but usually less than 10% Toxic: 20-30% COHB Lethal: Greater than 60% COHB METHB Honorio 0.3 <=1.5 % [facility] LABORATORY Na Whole Blood 131 (L) 135 - 145 mmol/L [facility] LABORATORY K Whole Blood 4.1 3.5 - 5.0 mmol/L [facility] LABOR[facility]ORY Comment: Please note: Patients with WBC >100,000 may have falsely elevated Potassium levels. Contact the Clinical Chemistry L aboratory if there are any questions. ICa Whole Blood 1.12 (L) 1.15 - 1.33 mmol/L [facility] LABORATORY Comment: Note: ??Total bilirubin higher than 20 m g/dL may lead to falsely low ionized calcium. CL Whole Blood 104 98 - 107 mmol/L [facility]ORATORY Gluc Whole Bld 127 65 - 199 mg/dL [facility] LAB[facility] Comment: Diabetes: >=200 mg/dL plus symp toms Lactate WB 1.5 0.5 - 2.2 mmol/L [facility] LABOR[facility] BGas Source Venous [facility] LABORATORY Specimen Anatomical Collection Method Collection Time Receive d Time (Source) Location / / Volume Laterality Blood Venous Draw / 01/26/2022 6:19 PM 01/27/20 22 6:32 Unknown EDT PM EDT Resulting Agency Comment Spec In Lab Angelina Reynoso MD CHEMISTRY ORDERABLES Performing Organization Address City/State/[place] [address] (ABNORMAL) CK (01/26/2022 6:19 PM EDT) athologist Signature CK, Total 21,834 (H) 0 - 200 [facility] unit/[facility] LABORATORY Specimen Anatomical Collection Method Collection Time Receive d Time (Source) Location / / Volume Laterality Blood 01/26/2022 6:19 PM 2 6:31 EDT PM EDT Resulting Agency Comment Spec In Lab Cristina Hillman APRN CHEMISTRY ORDERABLES Performing Organization Address City/[facility]/ZIP Code Phon e Number [address] POCT Glucose (01/26/2022 6:03 PM EDT) athologist Signature POC Glucose 108 65 - 199 [facility] Comment: Supplemental ranges: <140 mg/dL before meals <180 mg/dL all other times of the day Specimen Anatomical Collection Method Collection Time Receive d Time (Source) Location / / Volume Laterality Blood 01/26/2022 6:03 PM 2 6:03 EDT PM EDT Beck Sanz MD POINT OF CARE TEST ORDERABLE S Performing Organization Address City/State/[place] [address] POCT Glucose (01/26/2022 4:31 PM EDT) P athologist Signature POC Glucose 112 65 - 199 [facility] mg/dL [facility] LAB[facility] Comment: Supplemental ranges: <140 mg/dL before meals <180 mg/dL all other times of the day Specimen Anatomical Collection Method Collection Time Receive d Time (Source) Location / / Volume Laterality Blood 01/26/2022 4:31 PM 2 4:31 EDT PM EDT Beck Sanz MD POINT OF CARE TEST ORDERABLE S Performing Organization Address City/[facility]/ZIP Code Phon e Number [address] POCT Glucose (01/26/2022 2:00 PM EDT) P athologist Signature POC Glucose 89 65 - 199 [facility] [place] mg/dL [facility] LAB[facility] Comment: Supplemental ranges: <140 mg/dL before meals <180 mg/dL all other times of the day Specimen Anatomical Collection Method Collection Time Receive d Time (Source) Location / / Volume Laterality Blood 01/26/2022 2:00 PM 2 2:00 EDT PM EDT Beck Sanz MD POINT OF CARE TEST ORDERABLE S Performing Organization Address City/[facility]/[place] [address] (ABNORMAL) BLOOD GAS 2 VENOUS (01/26/2022 12:23 PM EDT) Analysis Performed At Patho logist Time Signature pH Honorio 7.42 7.32 - [facility] 7.42 [facility] LABORATORY pCO2 Honorio 40 (L) 41 - 51 [facility] LABORATORY pO2 Honorio 33 25 - 40 [facility] LABORATORY HCO3 Honorio 25.4 mmol/L [facility] LABORATORY BE Honorio 1.0 mmol/L [facility] LABORATORY Hgb Blood Gas 12.1 (L) 13.7 - [facility] 16.5 g/dL [facility] LAB[facility]ATORY O2HB Honorio 65.4 % [facility] LABORATORY COHB Honorio 0.7 % [facility] LABORATORY Comment: Nonsmokers: 0.5-1.5% COHB Smokers: Variable, but usually less than 10% Toxic: 20-30% COHB Lethal: Greater than 60% COHB METHB Honorio 0.1 <=1.5 % [facility] LABORATORY Na Whole Blood 130 (L) 135 - 145 mmol/L [facility]ORATORY K Whole Blood 3.8 3.5 - 5.0 mmol/L [facility]OR[facility] Comment: Please note: Patients with WBC >100,000 may have falsely elevated Potassium levels. Contact the Clinical Chemistry L aboratory if there are any questions. ICa Whole Blood 1.16 1.15 - 1.33 mmol/L [facility] Comment: Note: ??Total bilirubin higher than 20 m g/dL may lead to falsely low ionized calcium. CL Whole Blood 102 98 - 107 mmol/L [facility]ORY Gluc Whole Bld 115 65 - 199 mg/dL [facility] Comment: Diabetes: >=200 mg/dL plus symp toms Lactate WB 0.9 0.5 - 2.2 mmol/L [facility] LAB[facility] FIO2 Honorio 21 % [facility] LABORATORY BGas Source Central Venous [facility] LABORATORY Specimen Anatomical Collection Method Collection Time Receive d Time (Source) Location / / Volume Laterality Blood 01/26/2022 12:23 01/26/2022 PM EDT 12:23 PM EDT Beck Sanz MD CHEMISTRY ORDERABLES Performing Organization Address City/State/[place] [address] (ABNORMAL) CK (01/26/2022 12:22 PM EDT) athologist Signature CK, Total 25,802 (H) 0 - 200 [facility] unit/L [facility] LABORATORY Specimen Anatomical Collection Method Collection Time Receive d Time (Source) Location / / Volume Laterality Blood 01/26/2022 12:22 01/26/2022 PM EDT 12:29 PM EDT Resulting Agency Comment Spec In Lab Cristina Hillman ASSISTANT PROFESSOR OF SOCIOLOGY CHEMISTRY ORDERABLES Performing Organization Address City/State/[place] [address] POCT Glucose (01/26/2022 12:05 PM EDT) athologist Signature POC Glucose 79 65 - 199 [facility]dL [facility] LABOR[facility]ORY Comment: Supplemental ranges: <140 mg/dL before meals <180 mg/dL all other times of the day Specimen Anatomical Collection Method Collection Time Receive d Time (Source) Location / / Volume Laterality Blood 01/26/2022 12:05 01/26/2022 PM EDT 12:05 PM EDT Beck Sanz MD POINT OF CARE TEST ORDERABLE S Performing Organization Address City/State/[place] [address] POCT Glucose (01/26/2022 11:08 AM EDT) athologist Signature POC Glucose 82 65 - 199 [facility] mg/dL [facility] LABOR[facility]ORY Comment: Supplemental ranges: <140 mg/dL before meals <180 mg/dL all other times of the day Specimen Anatomical Collection Method Collection Time Receive d Time (Source) Location / / Volume Laterality Blood 01/26/2022 11:08 01/26/2022 AM EDT 11:08 AM EDT Beck Sanz MD POINT OF CARE TEST ORDERABLE S Performing Organization Address City/State/[place] [address] (ABNORMAL) POCT Glucose (01/26/2022 10:15 AM EDT) athologist Signature POC Glucose 59 (L) 65 - 199 [facility] mg/dL [facility] LABORATORY Comment: Supplemental ranges: <140 mg/dL before meals <180 mg/dL all other times of the day Specimen Anatomical Collection Method Collection Time Receive d Time (Source) Location / / Volume Laterality Blood 01/26/2022 10:15 01/26/2022 AM EDT 10:15 AM EDT Beck Sanz MD POINT OF CARE TEST ORDERABLE S Performing Organization Address City/State/[place] [address] POCT Glucose (01/26/2022 8:58 AM EDT) athologist Signature POC Glucose 75 65 - 199 [facility] mg/dL [facility] LABOR[facility] Comment: Supplemental ranges: <140 mg/dL before meals <180 mg/dL all other times of the day Specimen Anatomical Collection Method Collection Time Receive d Time (Source) Location / / Volume Laterality Blood 01/26/2022 8:58 AM 2 8:58 EDT AM EDT Beck Sanz MD POINT OF CARE TEST ORDERABLE S Performing Organization Address City/State/[place] [address] (ABNORMAL) POCT Glucose (01/26/2022 8:20 AM EDT) athologist Signature POC Glucose 49 65 - 199 [facility] (Critical) mg/dL [facility] LABOR[facility] Comment: Supplemental ranges: <140 mg/dL before meals <180 mg/dL all other times of the day Specimen Anatomical Collection Method Collection Time Receive d Time (Source) Location / / Volume Laterality Blood 01/26/2022 8:20 AM 2 8:20 EDT AM EDT Beck Sanz MD POINT OF CARE TEST ORDERABLE S Performing Organization Address City/State/[place] [address] (ABNORMAL) CK (01/26/2022 6:15 AM EDT) P athologist Signature CK, Total 27,357 (H) 0 - 200 [facility] unit/L [facility] LABORATORY Specimen Anatomical Collection Method Collection Time Receive d Time (Source) Location / / Volume Laterality Blood 01/26/2022 6:15 AM 6:21 EDT AM EDT Resulting Agency Comment Spec In Lab Cristina B Rafy ASSISTANT PROFESSOR OF SOCIOLOGY CHEMISTRY ORDERABLES Performing Organization Address City/State/[place] [address] (ABNORMAL) BLOOD GAS 2 VENOUS (01/26/2022 5:59 AM EDT) Analysis Performed At Patho logist Time Signature pH Honorio 7.40 7.32 - [facility] 7.42 [facility] LABORATORY pCO2 Honorio 42 41 - 51 [facility] LABORATORY pO2 Honorio 32 25 - 40 [facility] LABORATORY HCO3 Honorio 25.9 mmol/L [facility] LABORATORY BE Honorio 1.1 mmol/L [facility] LABORATORY Hgb Blood Gas 12.5 (L) 13.7 - [facility] 16.5 g/dL [facility] LABORATORY O2HB Honorio 62.3 % [facility] LABORATORY COHB Honorio 0.6 % [facility] LABORATORY Comment: Nonsmokers: 0.5-1.5% COHB Smokers: Variable, but usually less than 10% Toxic: 20-30% COHB Lethal: Greater than 60% COHB METHB Honorio 0.2 <=1.5 % [facility] LABORATORY Na Whole Blood 132 (L) 135 - 145 mmol/L [facility] LABORATORY K Whole Blood 4.0 3.5 - 5.0 mmol/L [facility] LABORATORY Comment: Please note: Patients with WBC >100,000 may have falsely elevated Potassium levels. Contact the Clinical Chemistry L aboratory if there are any questions. ICa Whole Blood 1.18 1.15 - 1.33 mmol/L [facility] LABORATORY Comment: Note: ??Total bilirubin higher than 20 m g/dL may lead to falsely low ionized calcium. CL Whole Blood 103 98 - 107 mmol/L [facility] LABORATORY Gluc Whole Bld 95 65 - 199 mg/dL [facility] LABORATORY Comment: Diabetes: >=200 mg/dL plus symp toms Lactate WB 1.0 0.5 - 2.2 mmol/L [facility] LABORATORY FIO2 Honorio 21 % [facility] LABORATORY BGas Source Venous [facility] LABORATORY Specimen Anatomical Collection Method Collection Time Receive d Time (Source) Location / / Volume Laterality Blood 01/26/2022 5:59 AM 2 5:59 EDT AM EDT Beck Sanz MD CHEMISTRY ORDERABLES Performing Organization Address City/[facility]/[place] [address] POCT Glucose (01/26/2022 5:09 AM EDT) athologist Signature POC Glucose 103 65 - 199 [facility] mg/dL [facility] LAB[facility] Comment: Supplemental ranges: <140 mg/dL before meals <180 mg/dL all other times of the day Specimen Anatomical Collection Method Collection Time Receive d Time (Source) Location / / Volume Laterality Blood 01/26/2022 5:09 AM 2 5:09 EDT AM EDT Beck Sanz MD POINT OF CARE TEST ORDERABLE S Performing Organization Address City/[facility]/[place]IP [place] [address] (ABNORMAL) POCT Glucose (01/26/2022 4:21 AM EDT) P athologist Signature POC Glucose 61 (L) 65 - 199 [facility] mg/dL [facility] LAB[facility] Comment: Supplemental ranges: <140 mg/dL before meals <180 mg/dL all other times of the day Specimen Anatomical Collection Method Collection Time Receive d Time (Source) Location / / Volume Laterality Blood 01/26/2022 4:21 AM 2 4:21 EDT AM EDT Beck Sanz MD POINT OF CARE TEST ORDERABLE S Performing Organization Address City/State/[place] [address] (ABNORMAL) BLOOD GAS 2 VENOUS (01/26/2022 12:26 AM EDT) P athologist Signature pH Honorio 7.38 7.32 - [facility] 7.42 [facility] LABORATORY pCO2 Honorio 47 41 - 51 [facility] LABORATORY pO2 Honorio 32 25 - 40 [facility] LABORATORY HCO3 Honorio 27.4 mmol/L [facility] LABORATORY BE Honorio 2.3 mmol/L [facility] LABORATORY Hgb Blood Gas 13.7 13.7 - [facility] 16.5 g/dL [facility] LABORATORY O2HB Honorio 60.6 % [facility] LABORATORY COHB Honorio 0.8 % [facility] LABORATORY Comment: Nonsmokers: 0.5-1.5% COHB Smokers: Variable, but usually less than 10% Toxic: 20-30% COHB Lethal: Greater than 60% COHB METHB Honorio 0.0 <=1.5 % [facility] LABORATORY Na Whole Blood 133 (L) 135 - 145 mmol/L [facility] LABORATORY K Whole Blood 4.3 3.5 - 5.0 mmol/L [facility] LABORATORY Comment: Please note: Patients with WBC >100,000 may have falsely elevated Potassium levels. Contact the Clinical Chemistry L aboratory if there are any questions. ICa Whole Blood 1.17 1.15 - 1.33 mmol/L [facility] LABORATORY Comment: Note: ??Total bilirubin higher than 20 m g/dL may lead to falsely low ionized calcium. CL Whole Blood 103 98 - 107 mmol/L [facility] LABORATORY Gluc Whole Bld 101 65 - 199 mg/dL [facility] LABORATORY Comment: Diabetes: >=200 mg/dL plus symp toms Lactate WB 1.3 0.5 - 2.2 mmol/L [facility] LABORATORY FIO2 Honorio 21 % [facility] LABORATORY BGas Source Venous [facility] LABORATORY Specimen Anatomical Collection Method Collection Time Receive d Time (Source) Location / / Volume Laterality Blood 01/26/2022 12:26 01/26/2022 AM EDT 12:26 AM EDT Beck Sanz MD CHEMISTRY ORDERABLES Performing Organization Address City/State/ZIP Code Phon e Number [address] Scan, Peripheral Blood (01/26/2022 12:20 AM EDT) [facility] Method Time Signature Plat Estimate Decreased [facility] LABORATORY RBC Morphology Abnormal [facility] LABORATORY Polychromasia Present >5/HPF [facility] LABORATORY Pappenheimer Bdy Present >1/HPF [facility] LABORATORY Specimen Anatomical Collection Method Collection Time Receive d Time (Source) Location / / Volume Laterality Blood 01/26/2022 12:20 01/26/2022 AM EDT 12:29 AM EDT Resulting Agency Comment Spec In Lab Cristina Hillman APRN HEMATOLOGY ORDERABLES Performing Organization Address City/[facility]/[place] [address] (ABNORMAL) Differential, Automated (01/26/2022 12:20 AM EDT) [facility] Method Time Signature Neutrophils % 69.3 % [facility] LABORATORY Neutr Abs (ANC) 8.94 (H) 1.70 - [facility] 6.10 [facility] x10(3)/[facility] LABORATORY Lymphocytes % 13.7 % [facility] LABORATORY Lymphocytes Abs 1.8 0.9 - 3.2 [facility] x10(3)/[facility] LABORATORY Monocytes % 5.7 % [facility] LABORATORY Monocyte Abs 0.7 0.3 - 0.9 [facility] x10(3)/[facility] LABORATORY Eosinophils % 2.0 % [facility] LABORATORY Eosinophils Abs 0.3 0.0 - 0.4 [facility] x10(3)/[facility] LABORATORY Basophils % 0.1 % [facility] LABORATORY Basophils Abs 0.0 0.0 - 0.1 [facility] x10(3)/[facility] LABORATORY Immature Gran % 9.20 % [facility] LABORATORY Comment: Immature granulocytes(IG's)percentage an d absolute [...] Organization Address City/State/ZIP Code Phon e Number [place] [id number] (ABNORMAL) Hemogram (01/26/2022 12:20 AM EDT) [facility] gist Method Time Signature WBC 12.9 (H) 4.0 - 9.5 [facility] x10(3)/[facility] LABORATORY RBC 3.53 (L) 4.58 - [facility] 5.54 [facility] x10(6)/[facility] LABORATORY Hemoglobin 11.5 (L) 13.7 - [facility] 16.5 g/dL [facility] LABORATORY Hematocrit 33.2 (L) 40.5 - [facility] 48.5 % [facility] LABORATORY MCV 94.1 (H) 82.9 - [facility] 93.1 [facility] LABORATORY MCH 32.6 (H) 27.5 - [facility] MANDO 32.1 pg [facility] LABORATORY MCHC 34.6 32.0 - [facility] 35.7 g/dL [facility] LABORATORY Platelets 115 (L) 145 - 357 [facility] x10(3)/[facility] LABORATORY RDWSD 43.1 36.0 - [facility] 45.0 [facility] LABORATORY RDWCV 12.4 11.4 - [facility] 13.8 % [facility] LABORATORY MPV 10.6 7.6 - 12.9 [facility] LABORATORY nRBC % Auto 0.2 % [facility] LABORATORY nRBC Abs Auto 0.020 (H) 0.000 - [facility] 0.000 [facility] x10(3)/[facility] LABORATORY Specimen Anatomical Collection Method Collection Time Receive d Time (Source) Location / / Volume Laterality Blood 01/26/2022 12:20 01/26/2022 AM EDT 12:29 AM EDT Resulting Agency Comment Spec In Lab Gemma B Pentland ASSISTANT PROFESSOR OF SOCIOLOGY HEMATOLOGY ORDERABLES Performing Organization Address City/State/ZIP Code Phon e Number [address] (ABNORMAL) Hepatic Function Panel (01/26/2022 12:20 AM EDT) P athologist Signature Total Protein 4.5 (L) 6.1 - 8.0 [facility] g/dL [facility] LABORATORY Albumin 2.3 (L) 3.2 - 5.2 [facility] g/dL [facility] LABORATORY AST 710 (H) 0 - 39 [facility] unit/L [facility] LABORATORY ALT 591 (H) 0 - 55 [facility] unit/L [facility] LABORATORY Alk Phos 56 40 - 130 [facility] unit/L [facility] LABORATORY Total 0.4 0.2 - 1.3 [facility] Bilirubin mg/dL [facility] LABORATORY Bili, Direct 0.2 0.0 - 0.3 [facility] mg/dL [facility] LABORATORY Specimen Anatomical Collection Method Collection Time Receive d Time (Source) Location / / Volume Laterality Blood 01/26/2022 12:20 01/26/2022 AM EDT 12:29 AM EDT Resulting Agency Comment Spec In Lab Gemma B Pentland ASSISTANT PROFESSOR OF SOCIOLOGY CHEMISTRY ORDERABLES Performing Organization Address City/[facility]/ZIP Code Phon e Number [address] (ABNORMAL) Basic Metabolic Panel (non-fasting) (01/26/2022 12:20 AM EDT) P athologist Signature Glucose Lvl 104 65 - 199 [facility] mg/dL [facility] LABORATORY Comment: Diabetes: >=200 mg/dL plus symp toms BUN 26 (H) 10 - 20 mg/dL [facility] LABORATORY Creatinine 1.89 (H) 0.80 - 1.50 mg/dL [facility] LABORATORY Sodium 137 135 - 145 mmol/L [facility] LABORATORY Potassium 4.6 3.5 - 5.0 mmol/L [facility] LABORATORY Comment: Please note: ??Patients with WBC >100,00 0 may have falsely elevated Potassium levels. ??For accurate Potassium quantif ication in these patients send serum separator tube (gold top) for subsequent determinations. ??Contact the Clinical Chemistry Laboratory if there are any qu estions. Chloride 103 98 - 107 mmol/L [facility] LABORATORY CO2 27 22 - 31 mmol/L [facility] LABORATORY Anion Gap 7 5 - 15 mmol/L [facility] LABORATORY Calcium 8.3 (L) 8.5 - 10.5 mg/dL [facility] LABORATORY Estimated GFR 48 (L) >=60 mL/min/1.73 m?? [facility] LABORATORY Comment: This patient's estimated [...] Organization Address City/State/[place] [address] Phosphorus (01/26/2022 12:20 AM EDT) athologist Signature Phosphorus 3.0 2.5 - 4.5 [facility] mg/dL [facility] LABORATORY Specimen Anatomical Collection Method Collection Time Receive d Time (Source) Location / / Volume Laterality Blood 01/26/2022 12:20 01/26/2022 AM EDT 12:29 AM EDT Resulting Agency Comment Spec In Lab Gela Novak MD CHEMISTRY ORDERABLES Performing Organization Address City/State/ZIP Code Phon e Number [address] Magnesium (01/26/2022 12:20 AM EDT) athologist Signature Magnesium 0.85 0.69 - 1.07 [facility] mmol/L [facility] LABORATORY Specimen Anatomical Collection Method Collection Time Receive d Time (Source) Location / / Volume Laterality Blood 01/26/2022 12:20 01/26/2022 AM EDT 12:29 AM EDT Resulting Agency Comment Spec In Lab Gela Novak MD CHEMISTRY ORDERABLES Performing Organization Address City/State/[place] [address] Triglyceride (01/26/2022 12:20 AM EDT) athologist Signature Triglycerides 359 mg/dL [facility] LABORATORY Comment: Average Risk/Lower Risk: <150 mg/dL Borderline High Risk: 150-199 mg/dL High Risk: 200-499 mg/dL Very High Risk: >bm=104 mg/dL Specimen Anatomical Collection Method Collection Time Receive d Time (Source) Location / / Volume Laterality Blood 01/26/2022 12:20 01/26/2022 AM EDT 12:29 AM EDT Resulting Agency Comment Spec In Lab Beck Sanz MD CHEMISTRY ORDERABLES Performing Organization Address City/State/ZIP Code Phon e Number [address] POCT Glucose (01/26/2022 12:01 AM EDT) athologist Signature POC Glucose 94 65 - 199 [facility] mg/dL [facility] LABORATORY Comment: Supplemental ranges: <140 mg/dL before meals <180 mg/dL all other times of the day Specimen Anatomical Collection Method Collection Time Receive d Time (Source) Location / / Volume Laterality Blood 01/26/2022 12:01 01/26/2022 AM EDT 12:01 AM EDT Beck Sanz MD POINT OF CARE TEST ORDERABLE S Performing Organization Address City/State/[place] [address] POCT Glucose (01/25/2022 8:08 PM EDT) athologist Signature POC Glucose 101 65 - 199 [facility] mg/dL [facility] LABORATORY Comment: Supplemental ranges: <140 mg/dL before meals <180 mg/dL all other times of the day Specimen Anatomical Collection Method Collection Time Receive d Time (Source) Location / / Volume Laterality Blood 01/25/2022 8:08 PM 8:08 EDT PM EDT Beck Sanz MD POINT OF CARE TEST ORDERABLE S Performing Organization Address City/State/[place] [address] (ABNORMAL) BLOOD GAS 2 VENOUS (01/25/2022 6:07 PM EDT) athologist Signature pH Honorio 7.37 7.32 - [facility] 7.42 [facility] LABORATORY pCO2 Honorio 45 41 - 51 [facility] LABORATORY pO2 Honorio 31 25 - 40 [facility] LABORATORY HCO3 Honorio 25.5 mmol/L [facility] LABORATORY BE Honorio 0.2 mmol/L [facility] LABORATORY Hgb Blood Gas 14.1 13.7 - [facility] 16.5 g/dL [facility] LABORATORY O2HB Honorio 59.1 % [facility] LABORATORY COHB Honorio 1.3 % [facility] LABORATORY Comment: Nonsmokers: 0.5-1.5% COHB Smokers: Variable, but usually less than 10% Toxic: 20-30% COHB Lethal: Greater than 60% COHB METHB Honorio 0.0 <=1.5 % [facility] LABORATORY Na Whole Blood 132 (L) 135 - 145 mmol/L [facility] LABORATORY K Whole Blood 4.4 3.5 - 5.0 mmol/L [facility] LABORATORY Comment: Please note: Patients with WBC >100,000 may have falsely elevated Potassium levels. Contact the Clinical Chemistry L aboratory if there are any questions. ICa Whole Blood 1.20 1.15 - 1.33 mmol/L [facility] LABORATORY Comment: Note: ??Total bilirubin higher than 20 m g/dL may lead to falsely low ionized calcium. CL Whole Blood 102 98 - 107 mmol/L [facility] LABORATORY Gluc Whole Bld 119 65 - 199 mg/dL [facility] LABORATORY Comment: Diabetes: >=200 mg/dL plus symp toms Lactate WB 1.0 0.5 - 2.2 mmol/L [facility] LABORATORY FIO2 Honorio 21 % [facility] LABORATORY BGas Source Central Venous [facility] LABORATORY Specimen Anatomical Collection Method Collection Time Receive d Time (Source) Location / / Volume Laterality Blood 01/25/2022 6:07 PM 2 6:07 EDT PM EDT Beck Sanz MD CHEMISTRY ORDERABLES Performing Organization Address City/State/[place] [address] (ABNORMAL) CK (01/25/2022 6:00 PM EDT) P athologist Signature CK, Total 32,675 (H) 0 - 200 [facility] unit/L [facility] LABORATORY Specimen Anatomical Collection Method Collection Time Receive d Time (Source) Location / / Volume Laterality Blood 01/25/2022 6:00 PM 2 6:12 EDT PM EDT Resulting Agency Comment Spec In Lab Cristina Hillman APRN CHEMISTRY ORDERABLES Performing Organization Address City/[facility]/[place] [address] POCT Glucose (01/25/2022 4:09 PM EDT) P athologist Signature POC Glucose 103 65 - 199 [facility] mg/dL [facility] LABORATORY Comment: Supplemental ranges: <140 mg/dL before meals <180 mg/dL all other times of the day Specimen Anatomical Collection Method Collection Time Receive d Time (Source) Location / / Volume Laterality Blood 01/25/2022 4:09 PM 2 4:09 EDT PM EDT Beck Sanz MD POINT OF CARE TEST ORDERABLE S Performing Organization Address City/State/[place] [address] (ABNORMAL) BLOOD GAS 2 VENOUS (01/25/2022 11:59 AM EDT) Analysis Performed At Patho logist Time Signature pH Honorio 7.40 7.32 - [facility] 7.42 [facility] LABORATORY pCO2 Honorio 45 41 - 51 [facility] LABORATORY pO2 Honorio 34 25 - 40 [facility] LABORATORY HCO3 Honorio 27.0 mmol/L [facility] LABORATORY BE Honorio 2.2 mmol/L [facility] LABORATORY Hgb Blood Gas 12.2 (L) 13.7 - [facility] 16.5 g/dL [facility] LABORATORY O2HB Honorio 64.3 % [facility] LABORATORY COHB Honorio 0.2 % [facility] LABORATORY Comment: Nonsmokers: 0.5-1.5% COHB Smokers: Variable, but usually less than 10% Toxic: 20-30% COHB Lethal: Greater than 60% COHB METHB Honorio 0.3 <=1.5 % [facility] LABORATORY Na Whole Blood 132 (L) 135 - 145 mmol/L [facility] LABORATORY K Whole Blood 4.6 3.5 - 5.0 mmol/L [facility] LABORATORY Comment: Please note: Patients with WBC >100,000 may have falsely elevated Potassium levels. Contact the Clinical Chemistry L aboratory if there are any questions. ICa Whole Blood 1.22 1.15 - 1.33 mmol/L [facility] LABORATORY Comment: Note: ??Total bilirubin higher than 20 m g/dL may lead to falsely low ionized calcium. CL Whole Blood 103 98 - 107 mmol/L [facility] LABORATORY Gluc Whole Bld 115 65 - 199 mg/dL [facility] LABORATORY Comment: Diabetes: >=200 mg/dL plus symp toms Lactate WB 1.3 0.5 - 2.2 mmol/L [facility] LABORATORY FIO2 Honorio 21 % [facility] LABORATORY BGas Source Central Venous [facility] LABORATORY Specimen Anatomical Collection Method Collection Time Receive d Time (Source) Location / / Volume Laterality Blood 01/25/2022 11:59 01/25/2022 AM EDT 11:59 AM EDT Beck Sanz MD CHEMISTRY ORDERABLES Performing Organization Address City/[facility]/ZIP Code Phon e Number [address] POCT Glucose (01/25/2022 11:56 AM EDT) P athologist Signature POC Glucose 88 65 - 199 [facility] mg/dL [facility] LAB[facility] Comment: Supplemental ranges: <140 mg/dL before meals <180 mg/dL all other times of the day Specimen Anatomical Collection Method Collection Time Receive d Time (Source) Location / / Volume Laterality Blood 01/25/2022 11:56 01/25/2022 AM EDT 11:56 AM EDT Beck Sanz MD POINT OF CARE TEST ORDERABLE S Performing Organization Address City/State/[place] [address] Phosphorus (01/25/2022 11:55 AM EDT) P athologist Signature Phosphorus 2.7 2.5 - 4.5 [facility]dL [facility] LABORATORY Specimen Anatomical Collection Method Collection Time Receive d Time (Source) Location / / Volume Laterality Blood 01/25/2022 11:55 01/25/2022 AM EDT 12:05 PM EDT Resulting Agency Comment Spec In Lab Angelina Reynoso MD CHEMISTRY ORDERABLES Performing Organization Address City/[facility]/ZIP Code Phon e Number JOSH [address] Magnesium (01/25/2022 11:55 AM EDT) P athologist Signature Magnesium 0.80 0.69 - 1.07 [facility] [place] mmol/L [facility] LABORATORY Specimen Anatomical Collection Method Collection Time Receive d Time (Source) Location / / Volume Laterality Blood 01/25/2022 11:55 01/25/2022 AM EDT 12:05 PM EDT Resulting Agency Comment Spec In Lab Angelina Reynoso MD CHEMISTRY ORDERABLES Performing Organization Address City/State/ZIP Code Phon e Number [address] (ABNORMAL) Creatinine (01/25/2022 11:55 AM EDT) Analysis Performed At Patho logist Time Signature Creatinine 2.06 (H) 0.80 - JOSH [place] 1.50 mg/dL [facility] LABORATORY Estimated GFR 44 (L) >=60 [facility] [place] mL/min/1.7 [facility] 3 [facility] LABORATORY Comment: This patient's estimated [...] Organization Address City/State/ZIP Code Phon e Number [address] (ABNORMAL) BUN (01/25/2022 11:55 AM EDT) P athologist Signature BUN 28 (H) 10 - 20 [facility] mg/dL [facility] LABORATORY Specimen Anatomical Collection Method Collection Time Receive d Time (Source) Location / / Volume Laterality Blood 01/25/2022 11:55 01/25/2022 AM EDT 12:05 PM EDT Resulting Agency Comment Spec In Lab Angelina Reynoso MD CHEMISTRY ORDERABLES Performing Organization Address City/[facility]/[place] [address] Electrolytes panel (01/25/2022 11:55 AM EDT) athologist Signature Sodium 137 135 - 145 [facility] mmol/L [facility] LABORATORY Potassium 4.7 3.5 - 5.0 [facility] mmol/[facility] LABORATORY Comment: Please note: ??Patients with WBC >100,00 0 may have falsely elevated Potassium levels. ??For accurate Potassium quantif ication in these patients send serum separator tube (gold top) for subsequent determinations. ??Contact the Clinical Chemistry Laboratory if there are any qu estions. Chloride 104 98 - 107 mmol/L [facility] LABORATORY CO2 25 22 - 31 mmol/L [facility] LABORATORY Anion Gap 8 5 - 15 mmol/L [facility] LABORATORY Specimen Anatomical Collection Method Collection Time Receive d Time (Source) Location / / Volume Laterality Blood 01/25/2022 11:55 01/25/2022 AM EDT 12:05 PM EDT Resulting Agency Comment Spec In Lab Angelina Reynoso MD CHEMISTRY ORDERABLES Performing Organization Address City/[facility]/[place] [address] (ABNORMAL) CK (01/25/2022 11:55 AM EDT) athologist Signature CK, Total 36,897 (H) 0 - 200 [facility] unit/[facility] LABORATORY Specimen Anatomical Collection Method Collection Time Receive d Time (Source) Location / / Volume Laterality Blood 01/25/2022 11:55 01/25/2022 AM EDT 12:05 PM EDT Resulting Agency Comment Spec In Lab Gemma B Pentland ASSISTANT PROFESSOR OF SOCIOLOGY CHEMISTRY ORDERABLES Performing Organization Address City/State/[place] [address] POCT Glucose (01/25/2022 8:31 AM EDT) athologist Signature POC Glucose 113 65 - 199 [facility] mg/dL [facility] LABORATORY Comment: Supplemental ranges: <140 mg/dL before meals <180 mg/dL all other times of the day Specimen Anatomical Collection Method Collection Time Receive d Time (Source) Location / / Volume Laterality Blood 01/25/2022 8:31 AM 2 8:31 EDT AM EDT Tex Robles MD POINT OF CARE TEST ORDERABLE S Performing Organization Address City/[facility]/[place] [address] (ABNORMAL) CK (01/25/2022 8:20 AM EDT) athologist Signature CK, Total 36,878 (H) 0 - 200 [facility] unit/L [facility] LABORATORY Specimen Anatomical Collection Method Collection Time Receive d Time (Source) Location / / Volume Laterality Blood 01/25/2022 8:20 AM 2 8:37 EDT AM EDT Resulting Agency Comment Spec In Lab Cristina Huang Pentland ASSISTANT PROFESSOR OF SOCIOLOGY CHEMISTRY ORDERABLES Performing Organization Address City/[facility]/[place] [address] (ABNORMAL) BLOOD GAS 2 ARTERIAL (01/25/2022 6:22 AM EDT) Analysis Performed At Patho logist Time Signature pH Art 7.45 7.35 - [facility] 7.45 [facility] LABORATORY pCO2 Art 33 (L) 35 - 45 [facility] LABORATORY pO2 Art 114 (H) 85 - 104 [facility] LABORATORY HCO3 Art 22.4 20.0 - [facility] 26.0 [facility] mmol/[facility] LABORATORY BE Art -1.6 -3.0 - 3.0 [facility] mmol/L [facility] LABORATORY Hgb Blood Gas 13.3 (L) 13.7 - [facility] 16.5 g/dL [facility] LABORATORY O2HB Art 97.0 94.0 - [facility] 97.0 % [facility] LABORATORY COHB Art 0.3 % [facility] LABORATORY Comment: Nonsmokers: 0.5-1.5% COHB Smokers: Variable, but usually less than 10% Toxic: 20-30% COHB Lethal: Greater than 60% COHB METHB Art 0.2 <=1.5 % [facility] LABORATORY Na Whole Blood 131 (L) 135 - 145 mmol/L [facility] LABORATORY K Whole Blood 5.0 3.5 - 5.0 mmol/L [facility] LABORATORY Comment: Please note: Patients with WBC >100,000 may have falsely elevated Potassium levels. Contact the Clinical Chemistry L aboratory if there are any questions. ICa Whole Blood 1.21 1.15 - 1.33 mmol/L [facility] LABORATORY Comment: Note: ??Total bilirubin higher than 20 m g/dL may lead to falsely low ionized calcium. CL Whole Blood 103 98 - 107 mmol/L [facility] LABORATORY Gluc Whole Bld 122 65 - 199 mg/dL [facility] LABORATORY Comment: Diabetes: >=200 mg/dL plus symp toms. Lactate WB 1.3 0.5 - 2.2 mmol/L [facility] LABORATORY FIO2 Art 35 % [facility] LABORATORY PF Ratio Art [address] [facility] LABORATORY Specimen Anatomical Collection Method Collection Time Receive d Time (Source) Location / / Volume Laterality Blood 01/25/2022 6:22 AM 6:22 EDT AM EDT Tex Robles MD CHEMISTRY ORDERABLES Performing Organization Address City/State/[place] [address] POCT Glucose (01/25/2022 3:49 AM EDT) P athologist Signature POC Glucose 121 65 - 199 [facility] mg/dL [facility] LABORATORY Comment: Supplemental ranges: <140 mg/dL before meals <180 mg/dL all other times of the day Specimen Anatomical Collection Method Collection Time Receive d Time (Source) Location / / Volume Laterality Blood 01/25/2022 3:49 AM 3:49 EDT AM EDT Tex Robles MD POINT OF CARE TEST ORDERABLE S Performing Organization Address City/State/[place] [address] Scan, Peripheral Blood (01/25/2022 12:30 AM EDT) [facility] MetaJure Method Time Signature Plat Estimate Decreased [facility] LABORATORY RBC Morphology Normal [facility] LABORATORY Specimen Anatomical Collection Method Collection Time Receive d Time (Source) Location / / Volume Laterality Blood 01/25/2022 12:30 01/25/2022 AM EDT 12:39 AM EDT Resulting Agency Comment Spec In Lab Cristina Hillman APRN HEMATOLOGY ORDERABLES Performing Organization Address City/[facility]/[place] [address] (ABNORMAL) Differential, Automated (01/25/2022 12:30 AM EDT) [facility] MetaJure Method Time Signature Neutrophils % 77.1 % [facility] LABORATORY Neutr Abs (ANC) 6.61 (H) 1.70 - [facility] 6.10 [facility] x10(3)/[facility] LABORATORY Lymphocytes % 12.9 % [facility] LABORATORY Lymphocytes Abs 1.1 0.9 - 3.2 [facility] x10(3)/[facility] LABORATORY Monocytes % 7.5 % [facility] LABORATORY Monocyte Abs 0.6 0.3 - 0.9 [facility] x10(3)/[facility] LABORATORY Eosinophils % 0.3 % [facility] LABORATORY Eosinophils Abs 0.0 0.0 - 0.4 [facility] x10(3)/[facility] LABORATORY Basophils % 0.3 % [facility] LABORATORY Basophils Abs 0.0 0.0 - 0.1 [facility] x10(3)/[facility] LABORATORY Immature Gran % 1.90 % [facility] LABORATORY Comment: Immature granulocytes(IG's)percentage an d absolute [...] Organization Address City/State/[place] [address] (ABNORMAL) Hemogram (01/25/2022 12:30 AM EDT) Analysis Performed At Patho logist Time Signature WBC 8.6 4.0 - 9.5 [facility] x10(3)/[facility] LABORATORY RBC 3.39 (L) 4.58 - [facility] 5.54 [facility] x10(6)/[facility] LABORATORY Hemoglobin 11.0 (L) 13.7 - [facility] 16.5 g/dL [facility] LABORATORY Hematocrit 31.2 (L) 40.5 - [facility] 48.5 % [facility] LABORATORY MCV 92.0 82.9 - [facility] 93.1 [facility] LABORATORY MCH 32.4 (H) 27.5 - [facility] 32.1 pg [facility] LABORATORY MCHC 35.3 32.0 - [facility] 35.7 g/dL [facility] LABORATORY Platelets 88 (L) 145 - 357 [facility] x10(3)/[facility] LABORATORY RDWSD 41.2 36.0 - [facility] 45.0 [facility] LABORATORY RDWCV 12.2 11.4 - [facility] 13.8 % [facility] LABORATORY MPV 10.6 7.6 - 12.9 [facility] LABORATORY nRBC % Auto 0.0 % [facility] LABORATORY nRBC Abs Auto 0.000 0.000 - [facility] 0.000 [facility] x10(3)/[facility] LABORATORY Specimen Anatomical Collection Method Collection Time Receive d Time (Source) Location / / Volume Laterality Blood 01/25/2022 12:30 01/25/2022 AM EDT 12:39 AM EDT Resulting Agency Comment Spec [facility] Performing Organization Address City/[facility]/ZIP Code Phon e Number [address] (ABNORMAL) CK (01/25/2022 12:30 AM EDT) athologist [facility] CK, Total 42,239 (H) 0 - 200 [facility] unit/L [facility] LABORATORY Specimen Anatomical Collection Method Collection Time Receive d Time (Source) Location / / Volume Laterality Blood 01/25/2022 12:30 01/25/2022 AM EDT 12:39 AM EDT Resulting Agency Comment Spec In Lab [facility] ASSISTANT PROFESSOR OF SOCIOLOGY CHEMISTRY ORDERABLES Performing Organization Address City/[facility] Phon e Number [address] (ABNORMAL) Hepatic Function Panel (01/25/2022 12:30 AM EDT) athologist [facility] Total Protein 4.1 (L) 6.1 - 8.0 [facility] g/dL [facility] LABORATORY Albumin 2.0 (L) 3.2 - 5.2 [facility] [place] g/dL [facility] LABORATORY AST 797 (H) 0 - 39 [facility] [place] unit/L [facility] LABORATORY ALT 583 (H) 0 - 55 [facility] [place] unit/L [facility] LABORATORY Alk Phos 51 40 - 130 [facility] unit/L [facility] LABORATORY Total 0.3 0.2 - 1.3 [facility] MANOD Bilirubin mg/dL [facility] LABORATORY Bili, Direct 0.1 0.0 - 0.3 [facility] mg/dL [facility] LABORATORY Specimen Anatomical Collection Method Collection Time Receive d Time (Source) Location / / Volume Laterality Blood 01/25/2022 12:30 01/25/2022 AM EDT 12:39 AM EDT Resulting Agency Comment Spec In Lab Cristina Huang Rafy ASSISTANT PROFESSOR OF SOCIOLOGY CHEMISTRY ORDERABLES Performing Organization Address City/State/[place] [address] (ABNORMAL) Basic Metabolic Panel (non-fasting) (01/25/2022 12:30 AM EDT) athologist Signature Glucose Lvl 129 65 - 199 [facility] mg/dL [facility] LABORATORY Comment: Diabetes: >=200 mg/dL plus symp toms BUN 30 (H) 10 - 20 mg/dL [facility] LABORATORY Creatinine 2.39 (H) 0.80 - 1.50 mg/dL [facility] LABORATORY Sodium 135 135 - 145 mmol/L [facility] LABORATORY Potassium 5.0 3.5 - 5.0 mmol/L [facility] LABORATORY Comment: Please note: ??Patients with WBC >100,00 0 may have falsely elevated Potassium levels. ??For accurate Potassium quantif ication in these patients send serum separator tube (gold top) for subsequent determinations. ??Contact the Clinical Chemistry Laboratory if there are any qu estions. Chloride 105 98 - 107 mmol/L [facility] LABORATORY CO2 24 22 - 31 mmol/L [facility] LABORATORY Anion Gap 6 5 - 15 mmol/L [facility] LABORATORY Calcium 8.2 (L) 8.5 - 10.5 mg/dL [facility] LABORATORY Estimated GFR 36 (L) >=60 mL/min/1.73 m?? [facility] LABORATORY Comment: This patient's estimated [...] Organization Address City/State/ZIP Code Phon e Number [address] Phosphorus (01/25/2022 12:30 AM EDT) athologist Signature Phosphorus 3.9 2.5 - 4.5 [facility] mg/dL [facility] LABORATORY Specimen Anatomical Collection Method Collection Time Receive d Time (Source) Location / / Volume Laterality Blood 01/25/2022 12:30 01/25/2022 AM EDT 12:39 AM EDT Resulting Agency Comment Spec In Lab Gela Novak MD CHEMISTRY ORDERABLES Performing Organization Address City/[facility]/ZIP Code Phon e Number [address] Magnesium (01/25/2022 12:30 AM EDT) athologist Signature Magnesium 0.89 0.69 - 1.07 [facility] mmol/L [facility] LABORATORY Specimen Anatomical Collection Method Collection Time Receive d Time (Source) Location / / Volume Laterality Blood 01/25/2022 12:30 01/25/2022 AM EDT 12:39 AM EDT Resulting Agency Comment Spec In Lab Gela Novak MD CHEMISTRY ORDERABLES Performing Organization Address City/[facility]/ZIP Code Phon e Number [address] POCT Glucose (01/25/2022 12:19 AM EDT) athologist Signature POC Glucose 126 65 - 199 [facility] mg/dL [facility] LABORATORY Comment: Supplemental ranges: <140 mg/dL before meals <180 mg/dL all other times of the day Specimen Anatomical Collection Method Collection Time Receive d Time (Source) Location / / Volume Laterality Blood 01/25/2022 12:19 01/25/2022 AM EDT 12:19 AM EDT Tex Robles MD POINT OF CARE TEST ORDERABLE S Performing Organization Address City/State/ZIP Code Phon e Number [facility] [place] [id number] HOSPITAL LABORATORY Drive CT Angiogram Carotids (01/24/2022 [...] who have questions please contact the health administrator health care facility that requested your imaging first. ? Narrative 01/25/2022 10:26 AM EDT EXAMINATION: CT ANGIOGRAM [place], CT ANGIOGRAM CAROTIDS CLINICAL HISTORY: [...] different from the original. EXAMINATION: CT ANGIOGRAM [place], CT ANGIOGRAM CAROTIDS CLINICAL [...] ho have questions please contact the health administrator health care facility that requested your imaging first. Electronically signed by: Arun Helm MD, [facility] ([phone]), at 01/25/2022 10:26 AM Agnieszka Carter JoshiLópez ASSISTANT PROFESSOR OF SOCIOLOGY IMG CT ORDERABLES CT Angiogram [place] (01/24/2022 11:32 PM EDT) [...] who have questions please contact the health administrator health care facility that requested your imaging first. ? Electronically signed by: Arun Helm MD, [facility] ([phone]), at 01/25/2022 10:26 AM Narrative 01/25/2022 10:26 AM EDT EXAMINATION: CT ANGIOGRAM [place], CT ANGIOGRAM CAROTIDS CLINICAL HISTORY: [...] different from the original. EXAMINATION: CT ANGIOGRAM [place], CT ANGIOGRAM CAROTIDS CLINICAL [...] ho have questions please contact the health administrator health care facility that requested your imaging first. Electronically signed by: Arun Helm MD, [facility] ([phone]), at 01/25/2022 10:26 AM Agnieszka López ASSISTANT PROFESSOR OF SOCIOLOGY IMG CT ORDERABLES POCT Glucose (01/24/2022 8:11 PM EDT) P athologist Signature POC Glucose 135 65 - 199 [facility] mg/dL [facility] LABORATORY Comment: Supplemental ranges: <140 mg/dL before meals <180 mg/dL all other times of the day Specimen Anatomical Collection Method Collection Time Receive d Time (Source) Location / / Volume Laterality Blood 01/24/2022 8:11 PM 2 8:11 EDT PM EDT Tex Robles MD POINT OF CARE TEST ORDERABLE S Performing Organization Address City/State/[place] [address] (ABNORMAL) CK (01/24/2022 6:20 PM EDT) P athologist Signature CK, Total 50,445 (H) 0 - 200 [facility] unit/L [facility] LABORATORY Specimen Anatomical Collection Method Collection Time Receive d Time (Source) Location / / Volume Laterality Blood 01/24/2022 6:20 PM 2 6:27 EDT PM EDT Resulting Agency Comment Spec In Lab Gemma B Alycialand ASSISTANT PROFESSOR OF SOCIOLOGY CHEMISTRY ORDERABLES Performing Organization Address City/[facility]/[place] [address] MRI Brain wo Contrast [...] who have questions please contact the health administrator health care facility that requested your imaging first. ? Narrative [...] ho have questions please contact the health administrator health care facility that requested your imaging first. Electronically signed by: Bernadine Edward [facility] ([phone]), at 01/24/2022 4:39 PM Cristina Hillman APRN IMG MRI ORDERABLES MRSA PCR (01/24/2022 1:10 PM EDT) [facility] g[facility] Method Time Signature MRSA Result Negative Negative [facility] LABORATORY MRSA Interp Negative for methicillin-resistant Staphylococcus aureus (MRSA) [facility] This test was performed using the GeneXpert?? Dx System an d the Xpert MRSA MEMORIAL Assay. The MRSA target DNA was not detec karina. The sample processing control and HOSPITAL probe check were valid. The performance of this test was determined by the [facility] [place] LABORATORY Molecular Pathology Laboratory. It has been maximus red by the U.S. Food and Drug Administration for clinical use. Comment: [VERIFIED DATE]01.25.22 Verified By:Alfonso Soto (Electronic Signature) Specimen (Source) Anatomical Collection Method Collection Time Re ceived Time Location / / Volume Laterality Nasopharyngeal Swab 01/24/2022 1:10 01/25 PM EDT 7:30 AM EDT Resulting Agency Comment Spec In Lab Agnieszka López ASSISTANT PROFESSOR OF SOCIOLOGY MICROBIOLOGY - GENERAL ORDER JT Performing Organization Address City/State/[place] [address] (ABNORMAL) CK (01/24/2022 12:14 PM EDT) athologist [facility] CK, Total 61,457 (H) 0 - 200 [facility] unit/L [facility] LABORATORY Specimen Anatomical Collection Method Collection Time Receive d Time (Source) Location / / Volume Laterality Blood 01/24/2022 12:14 01/24/2022 1:00 PM EDT PM EDT Resulting Agency Comment Spec In Lab Cristina Hillman ASSISTANT PROFESSOR OF SOCIOLOGY CHEMISTRY ORDERABLES Performing Organization Address City/State/[place] [address] POCT Glucose (01/24/2022 12:13 PM EDT) [facility] P[facility] Glucose 132 65 - 199 [facility] mg/dL [facility] LAB[facility] Comment: Supplemental ranges: <140 mg/dL before meals <180 mg/dL all other times of the day Specimen Anatomical Collection Method Collection Time Receive d Time (Source) Location / / Volume Laterality Blood 01/24/2022 12:13 01/24/2022 PM EDT 12:13 PM EDT Tex Robles MD POINT OF CARE TEST ORDERABLE S Performing Organization Address City/State/ZIP Code Phon [place] [address] ECHOCARDIO[address] COMPLETE W CONTRAST (01/24/2022 9:30 AM EDT) Anatomical Region Laterality Modality Cardiac Other Specimen (Source) Anatomical Collection Method Collection Time Re ceived Time Location / / Volume Laterality 01/23/2022 12:16 PM EDT Narrative 01/24/2022 11:52 AM EDT [facility] ?[address] ? [place], [place] [address] ?Voice: ?Fax: ? Echocardiogram Report Name: ALIX HOLLAND ?Study Date : 01/23/2022 12:16 PM ?BP: 96/65 mmHg ?Patient Location: [address] A : 1990 ?Height: 183 cm ? Account: [id number] Age: 31 yrs ?Weigh t: 102 kg [...] 05/03/2018, the prior LVEF was normal. Procedure Complete-[id number]. Right ventricular strain . Image enhancement Optison [...] might be different from the original. [facility] [address] [place] [address] Voice: Fax: Echocardiogram Report Name: ALIX HOLLAND Study Date: 2021 12:16 PM BP: 96/65 mmHg Patient Location: [address] : 1990 Height: 183 cm Account: [id number] Age: 31 yrs Weight: 102 kg Gender: [...] 05/03/2018, the prior LVEF was normal. Procedure Complete-[id number]. Right ventricular strain . Image enhancement Optison [...] ORDERABLES POCT Glucose (01/24/2022 8:39 AM EDT) P athologist Signature POC Glucose 122 65 - 199 [facility] mg/dL [facility] LAB[facility] Comment: Supplemental ranges: <140 mg/dL before meals <180 mg/dL all other times of the day Specimen Anatomical Collection Method Collection Time Receive d Time (Source) Location / / Volume Laterality Blood 01/24/2022 8:39 AM 2 8:39 EDT AM EDT Tex Robles MD POINT OF CARE TEST ORDERABLE S Performing Organization Address City/[facility]/[place] [address] (ABNORMAL) CK (01/24/2022 6:25 AM EDT) athologist Signature CK, Total 84,528 (H) 0 - 200 [facility] HOSPITAL LABORATORY Specimen Anatomical Collection Method Collection Time Receive d Time (Source) Location / / Volume Laterality Blood 01/24/2022 6:25 AM 2 6:40 EDT AM EDT Resulting Agency Comment Spec In Lab Tex Robles MD CHEMISTRY ORDERABLES Performing Organization Address [facility] [place] [address] Electrolytes panel (01/24/2022 6:25 AM EDT) athologist Signature Sodium 136 135 - 145 [facility] mmol/L [facility] LABORATORY Potassium 4.4 3.5 - 5.0 [facility] mmol/L [facility] LABOR[facility]ORY Comment: Please note: ??Patients with WBC >100,00 0 may have falsely elevated Potassium levels. ??For accurate Potassium quantif ication in these patients send serum separator tube (gold top) for subsequent determinations. ??Contact the Clinical Chemistry Laboratory if there are any qu estions. Chloride 103 98 - 107 mmol/L [facility] LABORATORY CO2 22 22 - 31 mmol/L [facility]OR[facility] Anion Gap 11 5 - 15 mmol/L [facility] LABORATORY Specimen Anatomical Collection Method Collection Time Receive d Time (Source) Location / / Volume Laterality Blood 01/24/2022 6:25 AM 2 6:40 EDT AM EDT Resulting Agency Comment Spec In Lab Angelina Reynoso MD CHEMISTRY ORDERABLES Performing Organization Address City/[facility]/ZIP [facility] [address] (ABNORMAL) Blood Gas Arterial ([facility]) (01/24/2022 6:20 AM EDT) Analysis Performed At Patho logist Time Signature pH Art 7.48 (H) 7.35 - [facility] 7.45 [facility] LABOR[facility]ORY pCO2 Art 29 (L) 35 - 45 [facility] mmHg [facility] LAB[facility] pO2 Art 68 (L) 85 - 104 [facility] mmHg [facility] HCO3 Art 21.1 20.0 - [facility] 26.0 [facility] mmol/L [facility] LABORATORY BE Art -2.3 -3.0 - 3.0 [facility] mmol/L [facility] Hgb Blood Gas 14.7 13.7 - [facility] 16.5 g/dL [facility] O2HB Art 91.8 (L) 94.0 - [facility] 97.0 % [facility] COHB Art 0.8 % [facility] LABORATORY Comment: Nonsmokers: ??0.5-1.5% COHB Smokers: ??Variable, but usually less th an 10% Toxic: 20 - 30% COHB Lethal: ??Greater than 60% COHB METHB Art 0.3 <=1.5 % [facility] LABORATORY Na Whole Blood 133 (L) 135 - 145 mmol/L [facility] LABORATORY K Whole Blood 4.3 3.5 - 5.0 mmol/L [facility] LABORATORY Comment: Please note: ??Patients with WBC >100,00 0 may have falsely elevated Potassium levels. ??Contact the Clinical Chemistry Laboratory if there are any questions. ICa Whole Blood 1.16 1.15 - 1.33 mmol/L [facility] LABOR[facility] Comment: Note: ??Total bilirubin higher than 20 m g/dL may lead to falsely low ionized calcium. CL Whole Blood 103 98 - 107 mmol/L [facility]OR[facility]ORY Gluc Whole Bld 134 65 - 199 mg/dL [facility] LABOR[facility] Comment: Diabetes: >=200 mg/dL plus symp toms. Lactate WB 1.9 0.5 - 2.2 mmol/L [facility] LABORATORY Specimen Anatomical Collection Method Collection Time Receive d Time (Source) Location / / Volume Laterality Blood Arterial Draw / 01/24/2022 6:20 AM 2021 6:30 Unknown EDT AM EDT Resulting Agency Comment Spec In Lab Angelina Reynoso MD CHEMISTRY ORDERABLES Performing Organization Address City/State/ZIP Code Phon e Number [address] POCT Glucose (01/24/2022 4:06 AM EDT) P athologist Signature POC Glucose 103 65 - 199 [facility] mg/dL [facility] Comment: Supplemental ranges: <140 mg/dL before meals <180 mg/dL all other times of the day Specimen Anatomical Collection Method Collection Time Receive d Time (Source) Location / / Volume Laterality Blood 01/24/2022 4:06 AM 4:06 EDT AM EDT Tex Robles MD POINT OF CARE TEST ORDERABLE S Performing Organization Address City/State/[place] [address] (ABNORMAL) Differential, Automated (01/24/2022 12:18 AM EDT) Patholo gist Method Time Signature Neutrophils % 77.0 % [facility] LABORATORY Neutr Abs (ANC) 8.76 (H) 1.70 - [facility] 6.10 [facility] x10(3)/[facility] LABORATORY Lymphocytes % 13.0 % [facility] LABORATORY Lymphocytes Abs 1.5 0.9 - 3.2 [facility] x10(3)/[facility] LABORATORY Monocytes % 8.0 % [facility] LABORATORY Monocyte Abs 0.9 0.3 - 0.9 [facility] x10(3)/[facility] LABORATORY Eosinophils % 0.4 % [facility] LABORATORY Eosinophils Abs 0.0 0.0 - 0.4 [facility] x10(3)/[facility] LABORATORY Basophils % 0.4 % [facility] LABORATORY Basophils Abs 0.0 0.0 - 0.1 [facility] x10(3)/[facility] LABORATORY Immature Gran % 1.20 % [facility] LABORATORY Comment: Immature granulocytes(IG's)percentage an d absolute [...] Organization Address City/State/[place] [address] (ABNORMAL) Hemogram (01/24/2022 12:18 AM EDT) Analysis Performed At Patho logist Time Signature WBC 11.4 (H) 4.0 - 9.5 [facility] x10(3)/[facility] LABORATORY RBC 4.66 4.58 - [facility] 5.54 [facility] x10(6)/[facility] LABORATORY Hemoglobin 14.8 13.7 - [facility] 16.5 g/dL [facility] LABORATORY Hematocrit 41.7 40.5 - [facility] 48.5 % [facility] LABORATORY MCV 89.5 82.9 - [facility] 93.1 [facility] LABORATORY MCH 31.8 27.5 - [facility] 32.1 pg [facility] LABORATORY MCHC 35.5 32.0 - [facility] 35.7 g/dL [facility] LABORATORY Platelets 136 (L) 145 - 357 [facility] x10(3)/[facility] LABORATORY RDWSD 40.0 36.0 - [facility] 45.0 [facility] LABORATORY RDWCV 12.3 11.4 - [facility] 13.8 % [facility] LABORATORY MPV 10.1 7.6 - 12.9 [facility] LABORATORY nRBC % Auto 0.0 % [facility] LABORATORY nRBC Abs Auto 0.000 0.000 - [facility] 0.000 [facility] x10(3)/[facility] LABORATORY Specimen Anatomical Collection Method Collection Time Receive d Time (Source) Location / / Volume Laterality Blood 01/24/2022 12:18 01/24/2022 AM EDT 12:25 AM EDT Resulting Agency Comment Spec In Lab Gemma B Pentland ASSISTANT PROFESSOR OF SOCIOLOGY HEMATOLOGY ORDERABLES Performing Organization Address City/State/[place] [address] (ABNORMAL) Basic Metabolic Panel (non-fasting) (01/24/2022 12:18 AM EDT) athologist Signature Glucose Lvl 164 65 - 199 [facility] mg/dL [facility] LABORATORY Comment: Diabetes: >=200 mg/dL plus symp toms BUN 31 (H) 10 - 20 mg/dL [facility] LABORATORY Creatinine 3.00 (H) 0.80 - 1.50 mg/dL [facility] LABORATORY Sodium 138 135 - 145 mmol/L [facility] LABORATORY Potassium 4.7 3.5 - 5.0 mmol/L [facility] LABORATORY Comment: Please note: ??Patients with WBC >100,00 0 may have falsely elevated Potassium levels. ??For accurate Potassium quantif ication in these patients send serum separator tube (gold top) for subsequent determinations. ??Contact the Clinical Chemistry Laboratory if there are any qu estions. Chloride 103 98 - 107 mmol/L [facility] LABORATORY CO2 21 (L) 22 - 31 mmol/L [facility] LABORATORY Anion Gap 14 5 - 15 mmol/L [facility] LABORATORY Calcium 8.0 (L) 8.5 - 10.5 mg/dL [facility] LABORATORY Comment: result rechecked-trb Estimated GFR 28 (L) >=60 mL/min/1.73 m?? [facility] LABORATORY Comment: This patient's estimated [...] Han DO CHEMISTRY ORDERABLES Performing Organization Address City/[facility]/ZIP Code Phon e Number [address] Phosphorus (01/24/2022 12:18 AM EDT) P athologist Signature Phosphorus 4.5 2.5 - 4.5 [facility]/dL [facility] LABORATORY Specimen Anatomical Collection Method Collection Time Receive d Time (Source) Location / / Volume Laterality Blood 01/24/2022 12:18 01/24/2022 AM EDT 12:25 AM EDT Resulting Agency Comment Spec In Lab Gela Novak MD CHEMISTRY ORDERABLES Performing Organization Address City/[facility]/[place] [address] Magnesium (01/24/2022 12:18 AM EDT) P athologist Signature Magnesium 0.92 0.69 - 1.07 [facility] mmol/L [facility] LABORATORY Specimen Anatomical Collection Method Collection Time Receive d Time (Source) Location / / Volume Laterality Blood 01/24/2022 12:18 01/24/2022 AM EDT 12:25 AM EDT Resulting Agency Comment Spec In Lab Gela Novak MD CHEMISTRY ORDERABLES Performing Organization Address City/[facility]/[place] [address] (ABNORMAL) Hepatic Function Panel (01/24/2022 12:18 AM EDT) Patholo gist Method Time Signature Total Protein 4.5 (L) 6.1 - 8.0 [facility] g/dL [facility] LABOR[facility]ORY Albumin 2.2 (L) 3.2 - 5.2 [facility] g/dL [facility] LABOR[facility] AST 1,181 (H) 0 - 39 [facility] unit/L [facility] LABOR[facility] ALT 682 (H) 0 - 55 [facility] unit/L [facility] LAB[facility] Alk Phos 65 40 - 130 [facility] unit/L [facility] LAB[facility] Total 0.5 0.2 - 1.3 [facility] Bilirubin mg/dL [facility] LABORATORY Bili, Direct 0.2 0.0 - 0.3 [facility] mg/dL [facility] LABORATORY Specimen Anatomical Collection Method Collection Time Receive d Time (Source) Location / / Volume Laterality Blood 01/24/2022 12:18 01/24/2022 AM EDT 12:25 AM EDT Resulting Agency Comment Spec In Lab Cristina Hillman ASSISTANT PROFESSOR OF SOCIOLOGY CHEMISTRY ORDERABLES Performing Organization Address City/State/[place] [address] (ABNORMAL) Electrolytes panel (01/24/2022 12:18 AM EDT) P athologist Signature Sodium 138 135 - 145 [facility] mmol/L [facility] LABOR[facility]ORY Potassium 4.7 3.5 - 5.0 [facility] mmol/L [facility] LAB[facility] Comment: Please note: ??Patients with WBC >100,00 0 may have falsely elevated Potassium levels. ??For accurate Potassium quantif ication in these patients send serum separator tube (gold top) for subsequent determinations. ??Contact the Clinical Chemistry Laboratory if there are any qu estions. Chloride 103 98 - 107 mmol/L [facility] LABORATORY CO2 21 (L) 22 - 31 mmol/L [facility] LABORATORY Anion Gap 14 5 - 15 mmol/L [facility] LABORATORY Specimen Anatomical Collection Method Collection Time Receive d Time (Source) Location / / Volume Laterality Blood 01/24/2022 12:18 01/24/2022 AM EDT 12:25 AM EDT Resulting Agency Comment Spec In Lab Gemma B Pentland ASSISTANT PROFESSOR OF SOCIOLOGY CHEMISTRY ORDERABLES Performing Organization Address City/State/[place] [address] (ABNORMAL) CK (01/24/2022 12:18 AM EDT) P athologist Signature CK, Total 84,860 (H) 0 - 200 [facility] unit/L [facility] LABORATORY Specimen Anatomical Collection Method Collection Time Receive d Time (Source) Location / / Volume Laterality Blood 01/24/2022 12:18 01/24/2022 AM EDT 12:25 AM EDT Resulting Agency Comment Spec In Lab Gemma B Pentland ASSISTANT PROFESSOR OF SOCIOLOGY CHEMISTRY ORDERABLES Performing Organization Address City/[facility]/[place] [address] POCT Glucose (01/24/2022 12:17 AM EDT) athologist Signature POC Glucose 158 65 - 199 [facility] mg/dL [facility] LAB[facility]ORY Comment: Supplemental ranges: <140 mg/dL before meals <180 mg/dL all other times of the day Specimen Anatomical Collection Method Collection Time Receive d Time (Source) Location / / Volume Laterality Blood 01/24/2022 12:17 01/24/2022 AM EDT 12:17 AM EDT Tex Robles MD POINT OF CARE TEST ORDERABLE S Performing Organization Address City/State/[place] [address] (ABNORMAL) BLOOD GAS 2 ARTERIAL (01/24/2022 12:16 AM EDT) Analysis Performed At Patho logist Time Signature pH Art 7.48 (H) 7.35 - [facility] 7.45 [facility] LABORATORY pCO2 Art 30 (L) 35 - 45 [facility] LABORATORY pO2 Art 70 (L) 85 - 104 [facility] LABORATORY HCO3 Art 22.0 20.0 - [facility] 26.0 [facility] mmol/L [facility] LABORATORY BE Art -1.5 -3.0 - 3.0 [facility] mmol/L [facility] LABORATORY Hgb Blood Gas 15.9 13.7 - [facility] 16.5 g/dL [facility] LABOR[facility]ORY O2HB Art 92.9 (L) 94.0 - [facility] 97.0 % [facility] LABORATORY COHB Art 0.6 % [facility] LABORATORY Comment: Nonsmokers: 0.5-1.5% COHB Smokers: Variable, but usually less than 10% Toxic: 20-30% COHB Lethal: Greater than 60% COHB METHB Art 0.4 <=1.5 % [facility] LABORATORY Na Whole Blood 133 (L) 135 - 145 mmol/L [facility] LABORATORY K Whole Blood 4.5 3.5 - 5.0 mmol/L [facility] LABORATORY Comment: Please note: Patients with WBC >100,000 may have falsely elevated Potassium levels. Contact the Clinical Chemistry L aboratory if there are any questions. ICa Whole Blood 1.11 (L) 1.15 - 1.33 mmol/L [facility] LABORATORY Comment: Note: ??Total bilirubin higher than 20 m g/dL may lead to falsely low ionized calcium. CL Whole Blood 103 98 - 107 mmol/L [facility]ORATORY Gluc Whole Bld 164 65 - 199 mg/dL [facility] LABORATORY Comment: Diabetes: >=200 mg/dL plus symp toms. Lactate WB 2.4 (H) 0.5 - 2.2 mmol/L [facility] LABORATORY FIO2 Art 21 % [facility] LABORATORY PF Ratio Art [address] [facility] LABORATORY Specimen Anatomical Collection Method Collection Time Receive d Time (Source) Location / / Volume Laterality Blood 01/24/2022 12:16 01/24/2022 AM EDT 12:16 AM EDT Tex Robles MD CHEMISTRY ORDERABLES Performing Organization Address City/State/[place] [address] POCT Glucose (01/23/2022 8:20 PM EDT) athologist Signature POC Glucose 93 65 - 199 [facility] mg/dL [facility] LAB[facility] Comment: Supplemental ranges: <140 mg/dL before meals <180 mg/dL all other times of the day Specimen Anatomical Collection Method Collection Time Receive d Time (Source) Location / / Volume Laterality Blood 01/23/2022 8:20 PM 8:20 EDT PM EDT Tex Robles MD POINT OF CARE TEST ORDERABLE S Performing Organization Address City/State/[place] [address] (ABNORMAL) Blood Gas Arterial ([facility]) (01/23/2022 6:10 PM EDT) Analysis Performed At Patho logist Time Signature pH Art 7.46 (H) 7.35 - [facility] 7.45 [facility] LABORATORY pCO2 Art 31 (L) 35 - 45 [facility] mmHg [facility] LABORATORY pO2 Art 79 (L) 85 - 104 [facility] LABORATORY HCO3 Art 21.5 20.0 - [facility] 26.0 [facility] mmol/L [facility] LABORATORY BE Art -2.4 -3.0 - 3.0 [facility] mmol/L [facility] LABORATORY Hgb Blood Gas 17.4 (H) 13.7 - [facility] 16.5 g/dL [facility] LABOR[facility] O2HB Art 95.5 94.0 - [facility] 97.0 % [facility] LABORATORY COHB Art 0.3 % [facility] LABORATORY Comment: Nonsmokers: ??0.5-1.5% COHB Smokers: ??Variable, but usually less th an 10% Toxic: 20 - 30% COHB Lethal: ??Greater than 60% COHB METHB Art 0.0 <=1.5 % [facility] LABORATORY Na Whole Blood 135 135 - 145 mmol/L [facility]OR[facility] K Whole Blood 5.0 3.5 - 5.0 mmol/L [facility]ORATORY Comment: Please note: ??Patients with WBC >100,00 0 may have falsely elevated Potassium levels. ??Contact the Clinical Chemistry Laboratory if there are any questions. ICa Whole Blood 1.15 1.15 - 1.33 mmol/L [facility] LABORATORY Comment: Note: ??Total bilirubin higher than 20 m g/dL may lead to falsely low ionized calcium. CL Whole Blood 104 98 - 107 mmol/L [facility] LABORATORY Gluc Whole Bld 144 65 - 199 mg/dL [facility] LABOR[facility]ORY Comment: Diabetes: >=200 mg/dL plus symp toms. Lactate WB 2.6 (H) 0.5 - 2.2 mmol/L [facility] LABORAT[facility] FIO2 Art 60 % [facility] LABORATORY PF Ratio Art [address] [facility] LABORATORY Specimen Anatomical Collection Method Collection Time Receive d Time (Source) Location / / Volume Laterality Blood Arterial Draw / 01/23/2022 6:10 PM 2021 6:21 Unknown EDT PM EDT Resulting Agency Comment Spec In Lab Angelina Reynoso MD CHEMISTRY ORDERABLES Performing Organization Address [facility] Phon e Number [address] HIV Screen, 4th Generation ([facility] [place]/CGP/APD/NLH) (01/23/2022 6:10 PM EDT) Analysis Performed At Patho logist Time Signature HIV-1/2 Ab and Negative Negative [facility] LABORATORY Comment: This 4th Generation HIV [...] Low Risk of HIV Infection MA RY [facility] LABORATORY Specimen Anatomical Collection Method Collection Time Receive d Time (Source) Location / / Volume Laterality Blood 01/23/2022 6:10 PM 6:21 EDT PM EDT Resulting Agency Comment Spec In Lab Tex Robles MD IMMUNOLOGY ORDERABLES Performing Organization Address [facility] [place] [address] Hepatitis A Antibody, Total (01/23/2022 6:10 PM EDT) Analysis Performed At Patho logist Time Signature Hepatitis A Ab Negative Negative [facility] LABORATORY Specimen Anatomical Collection Method Collection Time Receive d Time (Source) Location / / Volume Laterality Blood 01/23/2022 6:10 PM 2 6:21 EDT PM EDT Resulting Agency Comment Spec In Lab Tex Robles MD IMMUNOLOGY ORDERABLES Performing Organization Address City/[facility]/[place] [address] (ABNORMAL) CK (01/23/2022 6:10 PM EDT) athologist Signature CK, Total 158,050 0 - 200 [facility] (H) unit/L [facility] LABORATORY Specimen Anatomical Collection Method Collection Time Receive d Time (Source) Location / / Volume Laterality Blood 01/23/2022 6:10 PM 2 6:21 EDT PM EDT Resulting Agency Comment Spec In Lab Gemma B Pentland ASSISTANT PROFESSOR OF SOCIOLOGY CHEMISTRY ORDERABLES Performing Organization Address City/[facility] [place] [address] (ABNORMAL) Electrolytes panel (01/23/2022 6:10 PM EDT) athologist [facility] Sodium 136 135 - 145 [facility] mmol/L [facility] LABORATORY Potassium 5.0 3.5 - 5.0 [facility] mmol/[facility] LABORATORY Comment: Please note: ??Patients with WBC >100,00 0 may have falsely elevated Potassium levels. ??For accurate Potassium quantif ication in these patients send serum separator tube (gold top) for subsequent determinations. ??Contact the Clinical Chemistry Laboratory if there are any qu estions. Chloride 103 98 - 107 mmol/L [facility] LABORATORY CO2 20 (L) 22 - 31 mmol/L [facility] LABORATORY Anion Gap 13 5 - 15 mmol/L [facility] LABORATORY Specimen Anatomical Collection Method Collection Time Receive d Time (Source) Location / / Volume Laterality Blood 01/23/2022 6:10 PM 2 6:21 EDT PM EDT Resulting Agency Comment Spec In Lab Gemma B Pentland ASSISTANT PROFESSOR OF SOCIOLOGY CHEMISTRY ORDERABLES Performing Organization Address City/State/[place] [address] Phosphorus (01/23/2022 6:10 PM EDT) P athologist Signature Phosphorus 4.2 2.5 - 4.5 [facility] mg/dL [facility] LABORATORY Specimen Anatomical Collection Method Collection Time Receive d Time (Source) Location / / Volume Laterality Blood 01/23/2022 6:10 PM 2 6:21 EDT PM EDT Resulting Agency Comment Spec In Lab Angelina Reynoso MD CHEMISTRY ORDERABLES Performing Organization Address City/State/ZIP Code Phon e Number [address] Magnesium (01/23/2022 6:10 PM EDT) P athologist Signature Magnesium 0.94 0.69 - 1.07 [facility] mmol/L [facility] LABORATORY Specimen Anatomical Collection Method Collection Time Receive d Time (Source) Location / / Volume Laterality Blood 01/23/2022 6:10 PM 2 6:21 EDT PM EDT Resulting Agency Comment Spec In Lab Angelina Reynoso MD CHEMISTRY ORDERABLES Performing Organization Address City/State/ZIP Code Phon e Number [address] (ABNORMAL) Creatinine (01/23/2022 6:10 PM EDT) Analysis Performed At Patho logist Time Signature Creatinine 2.88 (H) 0.80 - [facility] 1.50 mg/dL [facility] LABORATORY Estimated GFR 29 (L) >=60 [facility] mL/min/1.7 [facility] 3 ?? [facility] LABORATORY Comment: This patient's estimated GFR [...] Organization Address City/State/[place] [address] (ABNORMAL) Troponin (01/23/2022 6:10 PM EDT) athologist Signature Troponin-T 0.14 (H) 0.00 - [facility] 0.00 ng/mL [facility] LAB[facility]ATORY Comment: The 99th percentile for Troponin T is le ss than 0.01 ng/mL, any detectable cTnT concentration using this assay should be considered elevated. According to the third universal definit ion of myocardial infarction the following criteria with a clinical prese ntation consistent with acute myocardial ischemia meets the diagnosis for a myocardial infarction (DE). Detection of a rise and/or fall of [...] additional sample may be indicated. Reference: Third [place] Definition of Myocardial Infarction. Journal of the [place] [employer] 2012;60:1581-98 Specimen Anatomical Collection Method Collection Time Receive d Time (Source) Location / / Volume Laterality Blood 01/23/2022 6:10 PM 2 6:21 EDT PM EDT Resulting Agency Comment Spec In Lab Cristina Huang Alyciacaitlin ASSISTANT PROFESSOR OF SOCIOLOGY CHEMISTRY ORDERABLES Performing Organization Address City/State/ZIP Code Phon e Number [place] [id number] XR Chest One View [...] who have questions please contact the health administrator health care facility that requested your imaging first. ? Electronically signed by: Ren Carrillo, [facility] ([phone]), at 01/23/2022 5:01 PM Narrative 01/23/2022 5:01 PM EDT EXAMINATION: XR [...] ho have questions please contact the health administrator health care facility that requested your imaging first. Electronically signed by: Ren Carrillo, [facility] ([phone]), at 01/23/2022 5:01 PM Tex Robles MD IMG DX ORDERABLES (ABNORMAL) Calcium Ionized Whole Blood, HONORIO (01/23/2022 3:12 PM EDT) Analysis Performed At Patho logist Time Signature pH Honorio 7.42 7.32 - [facility] 7.42 [facility] ICa Whole 1.13 (L) 1.15 - [facility] Blood 1.33 [facility] mmol/L [facility] Comment: Note: ??Total bilirubin [...] Organization Address City/State/[place] [address] POCT Glucose (01/23/2022 3:03 PM EDT) athologist Signature POC Glucose 145 65 - 199 [facility] mg/dL [facility] Comment: Supplemental ranges: <140 mg/dL before meals <180 mg/dL all other times of the day Specimen Anatomical Collection Method Collection Time Receive d Time (Source) Location / / Volume Laterality Blood 01/23/2022 3:03 PM 2 3:03 EDT PM EDT Tex Robles MD POINT OF CARE TEST ORDERABLE S Performing Organization Address City/State/[place] [address] XR Tibia Fibula Left [...] who have questions please contact the health administrator health care facility that requested your imaging first. ? Electronically signed by: Jacky Mello MD, [facility] ([phone]), at 01/23/2022 2:07 PM Narrative 01/23/2022 2:07 [...] ho have questions please contact the health administrator health care facility that requested your imaging first. Electronically signed by: Jacky Mello MD, [facility] ([phone]), at 01/23/2022 2:07 PM Tex Travis HARTLEY [...] who have questions please contact the health administrator health care facility that requested your imaging first. ? Electronically signed by: Ren Carrillo, [facility] ([phone]), at 01/23/2022 2:10 PM Narrative 01/23/2022 2:10 PM EDT EXAMINATION: XR [...] ho have questions please contact the health administrator health care facility that requested your imaging first. Electronically signed by: Ren Carrillo, [facility] ([phone]), at 01/23/2022 2:10 PM Tex Robles MD IMG DX ORDERABLES MRSA PCR (01/23/2022 12:47 PM EDT) [facility] Method Time Signature MRSA Result Negative Negative [facility] MRSA Interp Negative for methicillin-resistant Staphylococcus aureus (MRSA) [facility] This test was performed using the GeneXpert?? Dx System an d the Xpert MRSA MEMORIAL Assay. The MRSA target DNA was not detec karina. The sample processing control and HOSPITAL probe check were valid. The performance of this test was determined by the [facility] [place] [facility] Molecular Pathology Laboratory. It has been maximus red by the U.S. Food and Drug Administration for clinical use. Comment: [VERIFIED DATE]01.25.22 Verified By:Nora Shay (Electronic Signature) Specimen (Source) Anatomical Collection Method Collection Time Re ceived Time Location / / Volume Laterality Nasopharyngeal Swab 01/23/2022 12:47 12/31 PM EDT 12:37 PM EDT Resulting Agency Comment Spec In Lab Tex Robles MD MICROBIOLOGY - GENERAL ORDER JT Performing Organization Address City/State/[place] [address] (ABNORMAL) BLOOD GAS 2 ARTERIAL (01/23/2022 11:56 AM EDT) Analysis Performed At Patho logist Time Signature pH Art 7.43 7.35 - [facility] 7.45 [facility] pCO2 Art 32 (L) 35 - 45 [facility] mmHg [facility] pO2 Art 86 85 - 104 [facility] LABORATORY HCO3 Art 20.8 20.0 - [facility] 26.0 [facility] mmol/L [facility] BE Art -3.5 (L) -3.0 - 3.0 [facility] mmol/L [facility] Hgb Blood Gas 16.1 13.7 - [facility] 16.5 g/dL [facility] O2HB Art 95.6 94.0 - [facility] 97.0 % [facility] COHB Art 0.2 % [facility] Comment: Nonsmokers: 0.5-1.5% COHB Smokers: Variable, but usually less than 10% Toxic: 20-30% COHB Lethal: Greater than 60% COHB METHB Art 0.4 <=1.5 % [facility] Na Whole Blood 137 135 - 145 mmol/L [facility] K Whole Blood 5.5 (H) 3.5 - 5.0 mmol/L [facility] Comment: Please note: Patients with WBC >100,000 may have falsely elevated Potassium levels. Contact the Clinical Chemistry L aboratory if there are any questions. ICa Whole Blood 1.04 (L) 1.15 - 1.33 mmol/L [facility] Comment: Note: ??Total bilirubin higher than 20 m g/dL may lead to falsely low ionized calcium. CL Whole Blood 104 98 - 107 mmol/L [facility] Gluc Whole Bld 144 65 - 199 mg/dL [facility] Comment: Diabetes: >=200 mg/dL plus symp toms. Lactate WB 2.7 (H) 0.5 - 2.2 mmol/L [facility] FIO2 Art 60 % [facility] PF Ratio Art [address] [facility] Specimen Anatomical Collection Method Collection Time Receive d Time (Source) Location / / Volume Laterality Blood 01/23/2022 11:56 01/23/2022 AM EDT 11:56 AM EDT Tex Robles MD CHEMISTRY ORDERABLES Performing Organization Address City/[facility]/ZIP Code Phon e Number [address] Hepatitis B Surface Antigen (01/23/2022 11:50 AM EDT) Analysis Performed At [facility] logist Time Signature HepB Surface Negative Negative [facility] LABORATORY Specimen Anatomical Collection Method Collection Time Receive d Time (Source) Location / / Volume Laterality Blood 01/23/2022 11:50 01/23/2022 AM EDT 12:00 PM EDT Resulting Agency Comment Spec In Lab Agnieszka López APRN CHEMISTRY ORDERABLES Performing Organization Address [facility] Phon e Number [address] Hepatitis B DNA, quantitative, PCR (01/23/2022 11:50 AM EDT) Component Value Ref Test Analysis Performed At [facility] gist Range Method Time Signature Hepatitis B Result: <10 IU/mL (Target Not Detected) MANDO RAMESH quantitative, Indication for Study: HBV Infection [facility] Analysis: Mullins Alinity m HBV assay [...] López APRN CHEMISTRY ORDERABLES Performing Organization Address City/[facility]/ZIP [facility] Phon e Number [address] Hepatitis B Core Antibody, Total (01/23/2022 11:50 AM EDT) Analysis Performed At Patho logist Time Signature Hep B Core Ab Negative Negative [facility] Specimen Anatomical Collection Method Collection Time Receive d Time (Source) Location / / Volume Laterality Blood 01/23/2022 11:50 01/23/2022 AM EDT 12:00 PM EDT Resulting Agency Comment Spec In Lab Agnieszka Carter López ASSISTANT PROFESSOR OF SOCIOLOGY CHEMISTRY ORDERABLES Performing Organization Address City/[facility]/[place] [address] (ABNORMAL) Lower Respiratory Culture Tracheal Aspirate (01/23/2022 11:50 AM EDT) Component Value Ref Test Analysis Performed At Patholo gist Range Method Time Signature Lower Many Staphylococcus aureus MAR Y Respiratory Few mixed bacterial morphoty pes suggestive of normal upper respiratory yessy HENDRUM Culture () [facility] Gram Stain Many Neutrophils [facility] No squamous epithelial cells H [place] Moderate Gram Positive Cocci M [facility] Organism Staphylococcus [facility] aureus (A) [facility] Specimen Anatomical Collection Method [...] Comment: Gentamicin is not a ppropriate for [place]-therapy. Staphylococcus aureus Oxacillin VITEK 2 METHOD Sensitive [...] Vancomycin VITEK 2 METHOD Sensitive Cristina Hillman ASSISTANT PROFESSOR OF SOCIOLOGY MICROBIOLOGY - GENERAL ORDER JT Performing Organization Address City/[facility]/[place] [address] (ABNORMAL) Creatinine (01/23/2022 11:30 AM EDT) Analysis Performed At Patho logist Time Signature Creatinine 3.56 (H) 0.80 - [facility] 1.50 mg/dL [facility] Estimated GFR 23 (L) >=60 [facility] mL/min/1.7 [facility] 3 ?? [facility] Comment: This patient's estimated GFR [...] Organization Address City/State/ZIP Code Phon e Number [address] (ABNORMAL) Phosphorus (01/23/2022 11:30 AM EDT) P athologist Signature Phosphorus 6.8 (H) 2.5 - 4.5 [facility] mg/dL [facility] Specimen Anatomical Collection Method Collection Time Receive d Time (Source) Location / / Volume Laterality Blood 01/23/2022 11:30 01/23/2022 AM EDT 11:40 AM EDT Resulting Agency Comment Spec In Lab Angelina Reynoso MD CHEMISTRY ORDERABLES Performing Organization Address City/State/ZIP Code Phon e Number [address] Magnesium (01/23/2022 11:30 AM EDT) P athologist Signature Magnesium 0.86 0.69 - 1.07 [facility] mmol/L [facility] Specimen Anatomical Collection Method Collection Time Receive d Time (Source) Location / / Volume Laterality Blood 01/23/2022 11:30 01/23/2022 AM EDT 11:40 AM EDT Resulting Agency Comment Spec In Lab Angelina Reynoso MD CHEMISTRY ORDERABLES Performing Organization Address City/[facility]/[place] [address] (ABNORMAL) Electrolytes panel (01/23/2022 11:30 AM EDT) P athologist Signature Sodium 142 135 - 145 [facility] mmol/L [facility] Potassium 5.6 (H) 3.5 - 5.0 [facility] mmol/L [facility] Comment: Please note: ??Patients with WBC >100,00 0 may have falsely elevated Potassium levels. ??For accurate Potassium quantif ication in these patients send serum separator tube (gold top) for subsequent determinations. ??Contact the Clinical Chemistry Laboratory if there are any qu estions. Chloride 107 98 - 107 mmol/L [facility] CO2 19 (L) 22 - 31 mmol/L [facility] Anion Gap 16 (H) 5 - 15 mmol/L [facility] Specimen Anatomical Collection Method Collection Time Receive d Time (Source) Location / / Volume Laterality Blood 01/23/2022 11:30 01/23/2022 AM EDT 11:35 AM EDT Resulting Agency Comment Spec In Lab Gemma B Pentland ASSISTANT PROFESSOR OF SOCIOLOGY CHEMISTRY ORDERABLES Performing Organization Address City/[facility]/[place] [address] (ABNORMAL) CK (01/23/2022 11:30 AM EDT) P athologist Signature CK, Total 146,810 0 - 200 [facility] (H) unit/L [facility] Specimen Anatomical Collection Method Collection Time Receive d Time (Source) Location / / Volume Laterality Blood 01/23/2022 11:30 01/23/2022 AM EDT 11:35 AM EDT Resulting Agency Comment Spec In Lab Gemma B Pentland ASSISTANT PROFESSOR OF SOCIOLOGY CHEMISTRY ORDERABLES Performing Organization Address City/State/[place] [address] (ABNORMAL) Troponin (01/23/2022 11:30 AM EDT) athologist Signature Troponin-T 0.24 (H) 0.00 - [facility] [place] 0.00 ng/mL [facility] Comment: The 99th percentile for Troponin T is le ss than 0.01 ng/mL, any detectable cTnT concentration using this assay should be considered elevated. According to the third universal definit ion of myocardial infarction the following criteria with a clinical prese ntation consistent with acute myocardial ischemia meets the diagnosis for a myocardial infarction (DE). Detection of a rise and/or fall of [...] additional sample may be indicated. Reference: Third [place] Definition of Myocardial Infarction. Journal of the [place] [employer] 2012;60:1581-98 Specimen Anatomical Collection Method Collection Time Receive d Time (Source) Location / / Volume Laterality Blood 01/23/2022 11:30 01/23/2022 AM EDT 11:35 AM EDT Resulting Agency Comment Spec In Lab Cristina Hillman ASSISTANT PROFESSOR OF SOCIOLOGY CHEMISTRY ORDERABLES Performing Organization Address City/State/[place] [address] POCT Glucose (01/23/2022 11:01 AM EDT) athologist Signature POC Glucose 119 65 - 199 [facility] Comment: Supplemental ranges: <140 mg/dL before meals <180 mg/dL all other times of the day Specimen Anatomical Collection Method Collection Time Receive d Time (Source) Location / / Volume Laterality Blood 01/23/2022 11:01 01/23/2022 AM EDT 11:01 AM EDT Tex Robles MD POINT OF CARE TEST ORDERABLE S Performing Organization Address City/State/[place] [address] (ABNORMAL) BLOOD GAS 2 ARTERIAL (01/23/2022 9:18 AM EDT) Analysis Performed At Patho logist Time Signature pH Art 7.40 7.35 - [facility] 7.45 [facility] pCO2 Art 37 35 - 45 [facility] mmHg [facility] pO2 Art 61 (L) 85 - 104 [facility] LABORATORY HCO3 Art 22.3 20.0 - [facility] 26.0 [facility] mmol/[facility] BE Art -2.6 -3.0 - 3.0 [facility] mmol/L [facility] Hgb Blood Gas 15.3 13.7 - [facility] 16.5 g/dL [facility] O2HB Art 91.2 (L) 94.0 - [facility] 97.0 % [facility] COHB Art 0.3 % [facility] Comment: Nonsmokers: 0.5-1.5% COHB Smokers: Variable, but usually less than 10% Toxic: 20-30% COHB Lethal: Greater than 60% COHB METHB Art 0.3 <=1.5 % [facility] Na Whole Blood 137 135 - 145 mmol/L [facility] K Whole Blood 4.5 3.5 - 5.0 mmol/L [facility] Comment: Please note: Patients with WBC >100,000 may have falsely elevated Potassium levels. Contact the Clinical Chemistry L aboratory if there are any questions. ICa Whole Blood 1.23 1.15 - 1.33 mmol/L [facility] Comment: Note: ??Total bilirubin higher than 20 m g/dL may lead to falsely low ionized calcium. CL Whole Blood 105 98 - 107 mmol/L [facility] Gluc Whole Bld 117 65 - 199 mg/dL [facility] Comment: Diabetes: >=200 mg/dL plus symp toms. Lactate WB 4.9 (Critical) 0.5 - 2.2 mmol/L [facility] Comment: Noted by instrument maintenance supervisor. FIO2 Art 62 % [facility] PF Ratio Art [address] [facility] Temp Art 36.5 Celsius [facility] Specimen Anatomical Collection Method Collection Time Receive d Time (Source) Location / / Volume Laterality Blood 01/23/2022 9:18 AM 9:18 EDT AM EDT Tex Robles MD CHEMISTRY ORDERABLES Performing Organization Address City/State/[place] [address] (ABNORMAL) BLOOD GAS 2 ARTERIAL (01/23/2022 8:37 AM EDT) Analysis Performed At Patho logist Time Signature pH Art 7.40 7.35 - [facility] 7.45 [facility] pCO2 Art 33 (L) 35 - 45 [facility] LABORATORY pO2 Art 97 85 - 104 [facility] LABORATORY HCO3 Art 20.3 20.0 - [facility] 26.0 [facility] mmol/[facility] BE Art -4.4 (L) -3.0 - 3.0 [facility] mmol/L [facility] Hgb Blood Gas 15.3 13.7 - [facility] 16.5 g/dL [facility] O2HB Art 96.8 94.0 - [facility] 97.0 % [facility] COHB Art 0.4 % [facility] Comment: Nonsmokers: 0.5-1.5% COHB Smokers: Variable, but usually less than 10% Toxic: 20-30% COHB Lethal: Greater than 60% COHB METHB Art 0.3 <=1.5 % [facility] Na Whole Blood 135 135 - 145 mmol/L [facility] K Whole Blood 4.0 3.5 - 5.0 mmol/L [facility] Comment: Please note: Patients with WBC >100,000 may have falsely elevated Potassium levels. Contact the Clinical Chemistry L aboratory if there are any questions. ICa Whole Blood 1.11 (L) 1.15 - 1.33 mmol/L [facility] Comment: Note: ??Total bilirubin higher than 20 m g/dL may lead to falsely low ionized calcium. CL Whole Blood 105 98 - 107 mmol/L [facility] Gluc Whole Bld 141 65 - 199 mg/dL [facility] Comment: Diabetes: >=200 mg/dL plus symp toms. Lactate WB 5.0 (Critical) 0.5 - 2.2 mmol/L [facility] Comment: Noted by instrument maintenance supervisor. Specimen Anatomical Collection Method Collection Time Receive d Time (Source) Location / / Volume Laterality Blood 01/23/2022 8:37 AM 8:37 EDT AM EDT Tex Robles MD CHEMISTRY ORDERABLES Performing Organization Address City/State/[place] [address] (ABNORMAL) BLOOD GAS 2 ARTERIAL (01/23/2022 7:59 AM EDT) Analysis Performed At Patho logist Time Signature pH Art 7.34 (L) 7.35 - [facility] 7.45 [facility] pCO2 Art 34 (L) 35 - 45 [facility] mmHg [facility] pO2 Art 105 (H) 85 - 104 [facility] mmHg [facility] HCO3 Art 18.1 (L) 20.0 - [facility] 26.0 [facility] mmol/L [facility] BE Art -7.7 (L) -3.0 - 3.0 [facility] mmol/L [facility] Hgb Blood Gas 16.6 (H) 13.7 - [facility] 16.5 g/dL [facility] O2HB Art 97.0 94.0 - [facility] 97.0 % [facility] COHB Art 0.3 % [facility] Comment: Nonsmokers: 0.5-1.5% COHB Smokers: Variable, but usually less than 10% Toxic: 20-30% COHB Lethal: Greater than 60% COHB METHB Art 0.0 <=1.5 % [facility] Na Whole Blood 140 135 - 145 mmol/L [facility] K Whole Blood 4.5 3.5 - 5.0 mmol/L [facility] Comment: Please note: Patients with WBC >100,000 may have falsely elevated Potassium levels. Contact the Clinical Chemistry L aboratory if there are any questions. ICa Whole Blood 0.91 (Critical) 1.15 - 1.33 mmol/L [facility] Comment: Noted by instrument maintenance supervisor. Note: ??Total bilirubin higher than 20 m g/dL may lead to falsely low ionized calcium. CL Whole Blood 103 98 - 107 mmol/L [facility] Gluc Whole Bld 179 65 - 199 mg/dL [facility] Comment: Diabetes: >=200 mg/dL plus symp toms. Lactate WB 4.4 (Critical) 0.5 - 2.2 mmol/L [facility] Comment: Noted by instrument maintenance supervisor. Specimen Anatomical Collection Method Collection Time Receive d Time (Source) Location / / Volume Laterality Blood 01/23/2022 7:59 AM 2 7:59 EDT AM EDT Tex Robles MD CHEMISTRY ORDERABLES Performing Organization Address City/State/[place] [address] (ABNORMAL) POCT Glucose (01/23/2022 7:28 AM EDT) P athologist Signature POC Glucose 215 (H) 65 - 199 [facility] mg/dL [facility] Comment: Supplemental ranges: <140 mg/dL before meals <180 mg/dL all other times of the day Specimen Anatomical Collection Method Collection Time Receive d Time (Source) Location / / Volume Laterality Blood 01/23/2022 7:28 AM 2 7:28 EDT AM EDT Tex Robles MD POINT OF CARE TEST ORDERABLE S Performing Organization Address City/State/[place] [address] (ABNORMAL) Blood Gas Arterial ([facility]) (01/23/2022 7:21 AM EDT) Analysis Performed At Patho logist Time Signature pH Art 7.37 7.35 - [facility] 7.45 [facility] pCO2 Art 28 (L) 35 - 45 [facility] mmHg [facility] pO2 Art 96 85 - 104 [facility] mmHg [facility] HCO3 Art 15.7 (L) 20.0 - [facility] 26.0 [facility] mmol/L [facility] BE Art -9.6 (L) -3.0 - 3.0 [facility] mmol/L [facility] Hgb Blood Gas 16.4 13.7 - [facility] 16.5 g/dL [facility] O2HB Art 96.6 94.0 - [facility] 97.0 % [facility] COHB Art 0.3 % [facility] Comment: Nonsmokers: ??0.5-1.5% COHB Smokers: ??Variable, but usually less th an 10% Toxic: 20 - 30% COHB Lethal: ??Greater than 60% COHB METHB Art 0.2 <=1.5 % [facility] Na Whole Blood 137 135 - 145 mmol/L [facility] K Whole Blood 4.4 3.5 - 5.0 mmol/L [facility] Comment: Please note: ??Patients with WBC >100,00 0 may have falsely elevated Potassium levels. ??Contact the Clinical Chemistry Laboratory if there are any questions. ICa Whole Blood 0.90 (Critical) 1.15 - 1.33 mmol/L [facility] Comment: Called by: sharmin, Read back by: willie butt on, Date/Time:01/23/22 07:38. Note: ??Total bilirubin higher than 20 m g/dL may lead to falsely low ionized calcium. CL Whole Blood 105 98 - 107 mmol/L [facility] Gluc Whole Bld 203 (H) 65 - 199 mg/dL [facility] Comment: Diabetes: >=200 mg/dL plus symp toms. Lactate WB 5.5 (Critical) 0.5 - 2.2 mmol/L [facility] Comment: Called by: sharmin, Read back by: pramod alfaro, Date/Time:01/23/22 07:38. FIO2 Art 30 % [facility] PF Ratio Art [address] [facility] Specimen Anatomical Collection Method Collection Time Receive d Time (Source) Location / / Volume Laterality Blood Arterial Draw / 01/23/2022 7:21 AM 2021 7:28 Unknown EDT AM EDT Resulting Agency Comment Spec In Lab Cristina Hillman APRN CHEMISTRY ORDERABLES Performing Organization Address City/[facility]/ZIP Code Phon e Number [address] (ABNORMAL) Phosphorus (01/23/2022 7:20 AM EDT) P athologist Signature Phosphorus 6.1 (H) 2.5 - 4.5 [facility] mg/dL [facility] Specimen Anatomical Collection Method Collection Time Receive d Time (Source) Location / / Volume Laterality Blood 01/23/2022 7:20 AM 2 7:27 EDT AM EDT Resulting Agency Comment Spec In Lab Angelina Reynoso MD CHEMISTRY ORDERABLES Performing Organization Address City/[facility]/[place] [address] Magnesium (01/23/2022 7:20 AM EDT) P athologist Signature Magnesium 0.81 0.69 - 1.07 [facility]/L [facility] Specimen Anatomical Collection Method Collection Time Receive d Time (Source) Location / / Volume Laterality Blood 01/23/2022 7:20 AM 2 7:27 EDT AM EDT Resulting Agency Comment Spec In Lab Angelina Reynoso MD CHEMISTRY ORDERABLES Performing Organization Address City/[facility]/[place] [address] (ABNORMAL) Creatinine (01/23/2022 7:20 AM EDT) Analysis Performed At Patho logist Time Signature Creatinine 3.84 (H) 0.80 - [facility] MANDO 1.50 mg/dL [facility] Estimated GFR 21 (L) >=60 [facility]MORE mL/min/1.7 [facility] 3 ?? HOSPITAL LABORATORY Comment: This patient's estimated GFR [...] Organization Address City/State/[place] [address] (ABNORMAL) Electrolytes panel (01/23/2022 7:20 AM EDT) P athologist Signature Sodium 141 135 - 145 [facility] mmol/L [facility] Potassium 4.6 3.5 - 5.0 [facility] mmol/L [facility] Comment: result rechecked-brian Please note: ??Patients with WBC >100,00 0 may have falsely elevated Potassium levels. ??For accurate Potassium quantif ication in these patients send serum separator tube (gold top) for subsequent determinations. ??Contact the Clinical Chemistry Laboratory if there are any qu estions. Chloride 106 98 - 107 mmol/L [facility] CO2 14 (L) 22 - 31 mmol/L [facility] Anion Gap 21 (H) 5 - 15 mmol/L [facility] Specimen Anatomical Collection Method Collection Time Receive d Time (Source) Location / / Volume Laterality Blood 01/23/2022 7:20 AM 7:27 EDT AM EDT Resulting Agency Comment Spec In Lab Angelina Reynoso MD CHEMISTRY ORDERABLES Performing Organization Address City/State/ZIP [place] [address] XR Hand Min 3 [...] who have questions please contact the health administrator health care facility that requested your imaging first. ? Procedure [...] ho have questions please contact the health administrator health care facility that requested your imaging first. Electronically signed by: Jacky Mello MD, [facility] ([phone]), at 01/23/2022 11:07 AM Tex Robles MD IMG DX ORDERABLES XR Chest One View [...] who have questions please contact the health administrator health care facility that requested your imaging first. ? Electronically signed by: Rex Addison MD, [facility] ([phone]), at 01/23/2022 6:56 AM Narrative 01/23/2022 6:56 [...] iaphragm, the tip is not within the [id number]. Upper retrocardiac opacity corresponding to partial collapse [...] iaphragm, the tip is not within the [id number]-al-[id number]. Upper retrocardiac opacity corresponding to partial collapse [...] ho have questions please contact the health administrator health care facility that requested your imaging first. Electronically signed by: Rex Addison MD, [facility] ([phone]), at 01/23/2022 6:56 AM Tex Robles MD IMG DX ORDERABLES XR Forearm [...] who have questions please contact the health administrator health care facility that requested your imaging first. ? Electronically signed by: Rex Addison MD, [facility] ([phone]), at 01/23/2022 7:14 AM Narrative 01/23/2022 7:14 [...] ho have questions please contact the health administrator health care facility that requested your imaging first. Electronically signed by: Rex Addison MD, [facility] ([phone]), at 01/23/2022 7:14 AM Tex Robles MD IMG DX ORDERABLES CENTRAL [...] yes Patient location at time of insertion: [address] Procedure Comments: Prior to dilation wire was visualized vi a ultrasound entering large, collapsible vessel in both transv erse and longitudinal planes. All ports had positive blood ret urn and were able to be flushed without difficulty. Cristina Hillman APRN Gemma B Pentland ASSISTANT PROFESSOR OF SOCIOLOGY PROCEDURE/MINOR SURGICAL ORD ERABLES (ABNORMAL) Electrolytes panel (01/23/2022 6:00 AM EDT) athologist [facility] Sodium 140 135 - 145 [facility] mmol/L [facility] Potassium 5.9 (H) 3.5 - 5.0 [facility] mmol/L [facility] Comment: Please note: ??Patients with WBC >100,00 0 may have falsely elevated Potassium levels. ??For accurate Potassium quantif ication in these patients send serum separator tube (gold top) for subsequent determinations. ??Contact the Clinical Chemistry Laboratory if there are any qu estions. Chloride 102 98 - 107 mmol/L [facility] CO2 15 (L) 22 - 31 mmol/L [facility] Anion Gap 23 (H) 5 - 15 mmol/L [facility] Specimen Anatomical Collection Method Collection Time Receive d Time (Source) Location / / Volume Laterality Blood 01/23/2022 6:00 AM 2 6:08 EDT AM EDT Resulting Agency Comment Spec In Lab Gemma B [facility] ASSISTANT PROFESSOR OF SOCIOLOGY CHEMISTRY ORDERABLES Performing Organization Address City/State/[place] [address] (ABNORMAL) CK (01/23/2022 6:00 AM EDT) athologist [facility] CK, Total 158,930 0 - 200 [facility] (H) unit/L [facility] Specimen Anatomical Collection Method Collection Time Receive d Time (Source) Location / / Volume Laterality Blood 01/23/2022 6:00 AM 2 6:08 EDT AM EDT Resulting Agency Comment Spec In Lab Gemma B Pentland ASSISTANT PROFESSOR OF SOCIOLOGY CHEMISTRY ORDERABLES Performing Organization Address City/State/[place] [address] (ABNORMAL) Troponin (01/23/2022 6:00 AM EDT) athologist [facility] Troponin-T 0.35 (H) 0.00 - [facility] 0.00 ng/mL [facility] Comment: The 99th percentile for Troponin T is le ss than 0.01 ng/mL, any detectable cTnT concentration using this assay should be considered elevated. According to the third universal definit ion of myocardial infarction the following criteria with a clinical prese ntation consistent with acute myocardial ischemia meets the diagnosis for a myocardial infarction (DE). Detection of a rise and/or fall of [...] additional sample may be indicated. Reference: Third [place] Definition of Myocardial Infarction. Journal of the [place] [employer] 2012;60:1581-98 Specimen Anatomical Collection Method Collection Time Receive d Time (Source) Location / / Volume Laterality Blood 01/23/2022 6:00 AM 2 6:08 EDT AM EDT Resulting Agency Comment Spec In Lab Gemma B Pentland ASSISTANT PROFESSOR OF SOCIOLOGY CHEMISTRY ORDERABLES Performing Organization Address City/[facility]/[place] [address] Blood culture (01/23/2022 6:00 AM EDT) [facility] gist Method Time Signature Blood Culture No growth [facility] GILMORE at 5 days. [facility] Specimen Anatomical Collection Method Collection Time Receive d Time (Source) Location / / Volume Laterality Blood 01/23/2022 6:00 AM 2 6:18 EDT AM EDT Comment: unknown Resulting Agency Comment Spec In Lab Gemma B Pentland ASSISTANT PROFESSOR OF SOCIOLOGY MICROBIOLOGY - BLOOD ORDERAB LES Performing Organization Address City/[facility]/[place] [address] (ABNORMAL) POCT Glucose (01/23/2022 4:58 AM EDT) athologist Signature POC Glucose 205 (H) 65 - 199 [facility] mg/dL [facility] Comment: Supplemental ranges: <140 mg/dL before meals <180 mg/dL all other times of the day Specimen Anatomical Collection Method Collection Time Receive d Time (Source) Location / / Volume Laterality Blood 01/23/2022 4:58 AM 2 4:58 EDT AM EDT Tex Robles MD POINT OF CARE TEST ORDERABLE S Performing Organization Address City/[facility]/ZIP Code Phon e Number [address] Hepatitis B Surface Antibody (01/23/2022 4:49 AM EDT) athologist Signature HepB Surface 418.0 IU/L [facility] Ab Quant [facility] Comment: HepB Surface Ab Quant: Unvaccinated: < 8.5 IU/L Vaccinated: > 11.5 IU/L HepB Surface Ab Positive [facility] Comment: Patient is considered to be immune to HB V infection. Expected Results: Vaccinated: Positive Unvaccinated: Negative Specimen Anatomical Collection Method Collection Time Receive d Time (Source) Location / / Volume Laterality Blood 01/23/2022 4:49 AM 2 4:56 EDT AM EDT Resulting Agency Comment Spec In Lab Gemma B Pentland ASSISTANT PROFESSOR OF SOCIOLOGY IMMUNOLOGY ORDERABLES Performing Organization Address City/[facility]/[place] [address] Hepatitis C Antibody (01/23/2022 4:49 AM EDT) Analysis Performed At Patho logist Time Signature Hepatitis C Ab Negative Negative [facility] Specimen Anatomical Collection Method Collection Time Receive d Time (Source) Location / / Volume Laterality Blood 01/23/2022 4:49 AM 2 4:56 EDT AM EDT Resulting Agency Comment Spec In Lab Gemma B Pentland ASSISTANT PROFESSOR OF SOCIOLOGY IMMUNOLOGY ORDERABLES Performing Organization Address City/[facility]/[place] [address] (ABNORMAL) Potassium (01/23/2022 4:49 AM EDT) P athologist Signature Potassium 6.6 3.5 - 5.0 [facility] (Critical) mmol/L [facility] Comment: Called by: kvng, Read back [...] Organization Address City/State/[place] [address] (ABNORMAL) Hemogram (01/23/2022 4:49 AM EDT) Patholo gist Method Time Signature WBC 12.1 (H) 4.0 - 9.5 [facility] M[facility] x10(3)/[facility] LABORATORY RBC 5.49 4.58 - [facility] MANDO 5.54 [facility] x10(6)/[facility] LABORATORY Hemoglobin 17.6 (H) 13.7 - [facility] MANDO 16.5 g/dL [facility] Hematocrit 50.3 (H) 40.5 - [facility] MANDO 48.5 % [facility] MCV 91.6 82.9 - [facility] MANDO 93.1 [facility] LABORATORY MCH 32.1 27.5 - [facility] M[facility]O 32.1 pg [facility] MCHC 35.0 32.0 - [facility] MANDO 35.7 g/dL [facility] Platelets 184 145 - 357 [facility] MAND[facility] x10(3)/[facility] LABORATORY RDWSD 41.9 36.0 - [facility] 45.0 [facility] RDWCV 12.3 11.4 - [facility] 13.8 % [facility] MPV 9.7 7.6 - 12.9 [facility] fL [facility] nRBC % Auto 0.2 % [facility] nRBC Abs Auto 0.030 (H) 0.000 - [facility] GILMORE 0.000 [facility] x10(3)/[facility] HOSPITAL LABORATORY Specimen Anatomical Collection Method Collection Time Receive d Time (Source) Location / / Volume Laterality Blood 01/23/2022 4:49 AM 4:56 EDT AM EDT Resulting Agency Comment Spec In Lab Cristina Hillman ASSISTANT PROFESSOR OF SOCIOLOGY HEMATOLOGY ORDERABLES Performing Organization Address City/State/[place] [address] Upper Extremity w [...] who have questions please contact the health administrator health care facility that requested your imaging first. ? Electronically signed by: Rex Addison MD, [facility] ([phone]), at 01/23/2022 4:58 AM Narrative 01/23/2022 4:58 [...] ho have questions please contact the health administrator health care facility that requested your imaging first. Gemma B Rafy ASSISTANT PROFESSOR OF SOCIOLOGY IMG CT ORDERABLES CT Chest wo Contrast [...] who have questions please contact the health administrator health care facility that requested your imaging first. ? Electronically signed by: Rex Addison MD, [facility] ([phone]), at 01/23/2022 4:39 AM Narrative 01/23/2022 4:39 AM EDT EXAMINATION: CT CHEST WO CONTRAST (GENERIC) CLINICAL HISTORY: Aspiration Hypoxia [id number] to XR imaging. Presenting with cardiac arrest s/p ROSC, unclear etiology. TECHNIQUE: Noncontrast CT chest. Absence of intravenous contrast renders suboptimal assessment of potential paren chymal and mediastinal masses as well as hilar lymphadenopathy, and blood vessels and cardiovascular structures. COMPARISON: None Procedure Note Rex Addison MD - 01/23/2022 EXAMINATION: CT CHEST WO CONTRAST (GENER IC) CLINICAL HISTORY: Aspiration Hypoxia [id number] to XR imaging. Presenting with cardiac arrest [...] ho have questions please contact the health administrator health care facility that requested your imaging first. Electronically signed by: Rex Addison MD, [facility] ([phone]), at 01/23/2022 4:39 AM Gemma B Pentland ASSISTANT PROFESSOR OF SOCIOLOGY IMG CT ORDERABLES CT Lower Extremity wo Contrast [...] who have questions please contact the health administrator health care facility that requested your imaging first. ? Electronically signed by: Melita Mills MD, [facility] ([phone]), at 01/24/2022 1:45 PM Narrative 01/24/2022 1:45 [...] ho have questions please contact the health administrator health care facility that requested your imaging first. Electronically signed by: Melita Mills MD, [facility] ([phone]), at 01/24/2022 1:45 PM [facility] CT ORDERABLES CT Head wo Contrast (Generic) [...] who have questions please contact the health administrator health care facility that requested your imaging first. ? Electronically signed by: Rex Addison MD, [facility] ([phone]), at 01/23/2022 4:27 AM Narrative 01/23/2022 4:27 [...] ho have questions please contact the health administrator health care facility that requested your imaging first. Cristina Hillman APRN IMG CT ORDERABLES Insert Arterial Line (01/23/2022 2:16 AM EDT) Narrative Cristina Hillman ASSISTANT PROFESSOR OF SOCIOLOGY - 01/23/2022 2:1 6 AM EDT Cristina HillmanKATERYNA ? 01/23/2022 ??2:18 AM Arterial Line Placement [...] p lanned procedure. ?? Hand Hygiene: The multimedia production assistant did perform h and hygiene prior to [...] Good wave form. Procedure Comments: N/A Cristina Huang Rafy AVENDAÑO PROCEDURE/MINOR SURGICAL ORD ERABLES XR Abdomen 1 [...] who have questions please contact the health administrator health care facility that requested your imaging first. ? Electronically signed by: Jacky Mello MD, [facility] ([phone]), at 01/23/2022 8:39 AM Narrative 01/23/2022 8:39 [...] ho have questions please contact the health administrator health care facility that requested your imaging first. Electronically signed by: Jacky Mello MD, [facility] ([phone]), at 01/23/2022 8:39 AM Gemma B Pentland ASSISTANT PROFESSOR OF SOCIOLOGY IMG DX ORDERABLES XR Chest One View [...] who have questions please contact the health administrator health care facility that requested your imaging first. ? Electronically signed by: Sona Haji MD, [facility] ([phone]), at 01/23/2022 2:50 AM Narrative 01/23/2022 2:50 AM EDT EXAMINATION: XR CHEST ONE VIEW CLINICAL HISTORY: Known COVID infection. s/p intubation TECHNIQUE: Portable AP chest radiograph was obtained. COMPARISON: Outside radiographs dated 1923 FINDINGS: ET tube with its tip approxima tely 5.6 cm above the maia. Enteric tube is seen coursing through the esopha saige with sidehole in the gastric body and tip not included in the awgsm-vd-fdi w. No focal consolidation.No sizable pleura l [...] body and tip not included in the hchea-wi-ttp w. No focal consolidation.No sizable pleura l [...] ho have questions please contact the health administrator health care facility that requested your imaging first. Gemma B Pentland ASSISTANT PROFESSOR OF SOCIOLOGY IMG DX ORDERABLES APTT (01/23/2022 1:55 AM EDT) athologist Signature PTT 25 25 - 37 sec [facility] Comment: The PTT is NOT appropriate [...] Organization Address City/State/[place] [address] (ABNORMAL) Prothrombin Time (01/23/2022 1:55 AM EDT) athologist Signature PT 14.4 (H) 9.4 - 12.5 [facility] LABORATORY INR 1.3 [facility] Comment: An INR <2.0 indicates adequate [...] Robles MD HEMATOLOGY ORDERABLES Performing Organization Address City/[facility]/[place] [address] Fibrinogen (01/23/2022 1:55 AM EDT) P athologist Signature Fibrinogen 349 200 - 393 [facility] mg/dL [facility] Comment: A fibrinogen level >100 mg/dL is adequat e for hemostasis in most patients without underlying bleeding disorders. Specimen Anatomical Collection Method Collection Time Receive d Time (Source) Location / / Volume Laterality Blood 01/23/2022 1:55 AM 2 1:59 EDT AM EDT Resulting Agency Comment Spec In Lab Tex Robles MD HEMATOLOGY ORDERABLES Performing Organization Address City/[facility]/ZIP [facility] [place] [address] (ABNORMAL) Rapid Drug Screen w/o Confirmation, Urine (01/23/2022 1:45 AM EDT) Patholo gist Method Time Signature U Barbiturates Presumptive None [facility] Screen Pos (A) Detected [facility] Comment: The barbiturate screen [...] Benzodiazepines Screen Presumptive Pos (A) None Detected [facility] Comment: The benzodiazepines screen detects benzo [...] U Cocaine Screen None Detected None Detected [facility] Comment: The cocaine metabolites screen detects b enzoylecgonine (Cocaine Metabolite) at concentrations >150 ng/mL. A ? Presumptive Positive? result indicates that the screening result was positive but has not yet been confirmed by a highly-specific method. As with any screen, occasional false positive re sults from cross-reacting substances may occur. Not for Medico-Legal Purposes. U Methadone Metabolites None Detected None Detected [facility] LABORATORY Comment: The methadone metabolite screen detects EDDP (major methadone metabolite) at concentrations >100 ng/mL. A ? Presumptive Positive? result indicates that the screening result was positive but has not yet been confirmed by a highly-specific method. As with any screen, occasional false positive re sults from cross-reacting substances may occur. Not for Medico-Legal Purposes. U Opiate Screen None Detected None Detected [facility] Comment: The opiates screen detects [...] Cannabinoid Screen None Detected None Detected Ren JON [facility] Comment: The marijuana metabolites screen detects the THC metabolite (22-ghn-3-carboxy-delta 9-THC) at concen trations >20 ng/mL. A ? Presumptive Positive? result indicates that the screening result was positive but has not yet been confirmed by a highly-specific method. As with any screen, occasional false positive re sults from cross-reacting substances may occur. Not for Medico-Legal Purposes. U Oxycodone Screen Presumptive Pos (A) None Detected [facility] Comment: The oxycodone screen detects oxycodone a nd oxymorphone at concentrations >100 ng/mL. A ? Presumptive Positive? result indicates that the screening result was positive but has not yet been confirmed by a highly-specific method. As with any screen, occasional false positive re sults from cross-reacting substances may occur. Not for Medico-Legal Purposes. U Buprenorphine Screen None Detected None Detected [facility] Comment: The buprenorphine screen detects bupreno rphine at concentrations >5 ng/mL. A ? Presumptive Positive? result indicates that the screening result was positive but has not yet been confirmed by a highly-specific method. As with any screen, occasional false positive re sults from cross-reacting substances may occur. Not for Medico-Legal Purposes. U Fentanyl Screen Presumptive Pos (A) None Detected [facility] Comment: The fentanyl screen detects fentanyl at concentrations >2 ng/mL. A ? Presumptive Positive? result indicates that the screening result was positive but has not yet been confirmed by a highly-specific method. As with any screen, occasional false positive re sults from cross-reacting substances may occur. Not for Medico-Legal Purposes. U Tricyclics Screen None Detected None Detected [facility] Comment: The tricyclics screen detects [...] U Ethanol Screen None Detected None Detected [facility] Comment: This urine ethanol assay detect s ethanol at concentrations >/= 100 mg/L. U Amphetamines Screen None Detected None Detected [facility] Comment: The amphetamine screen detects d-ampheta mine and d-methamphetamine at concentrations >300 ng/mL. A ? Presumptive Positive? result indicates that the screening result was positive but has not yet been confirmed by a highly-specific method. As with any screen, occasional false positive re sults from cross-reacting substances may occur. Not for Medico-Legal Purposes. U Adulterants Screen None Detected None Detected Ren WEBB [facility] Comment: No adulteration or [...] Comment Spec In Lab Gemma B Pentland ASSISTANT PROFESSOR OF SOCIOLOGY CHEMISTRY ORDERABLES Performing Organization Address City/[facility]/[place] [address] Rapid Drug Screen, Urine (MEGHNA Request) (01/23/2022 1:45 AM EDT) [place] Method Time Signature MEGHNA Conf No [facility] LABORATORY MEGHNA Requested See Comment [facility] Comment: Refer to Rapid Drug Screen w/o Confirmation, Urine for results. Specimen Anatomical Collection Method Collection Time Receive d Time (Source) Location / / Volume Laterality Urine 01/23/2022 1:45 AM 2 1:52 EDT AM EDT Resulting Agency Comment Spec In Lab Gemma B Pentland ASSISTANT PROFESSOR OF SOCIOLOGY URINE ORDERABLES Performing Organization Address City/[facility]/[place] [address] (ABNORMAL) _Urinalysis with microscopic (01/23/2022 1:30 AM EDT) [place] Method Time Signature Glucose UA Negative Negative [facility] mg/dL [facility] LABORATORY Protein UA >=300 (A) Negative [facility] Bilirubin UA Moderate (A) Negative [facility] mg/dL [facility] Comment: Clinical correlation required for positi ve Urine Bilirubin results as false positive may occur with some drugs and d rug related products. If a false positive is suspected a serum total bili villaseñor should be considered if clinically indicated. Urobilinogen UA Normal Normal mg/dL [facility] LABORATORY pH UA 6.5 5.0 - 8.0 [facility] LABOR[facility]ORY Blood UA Large (A) Negative mg/dL [facility] Ketones UA Trace (A) Negative mg/dL [facility] Nitrite UA Positive (A) Negative [facility] LABOR[facility]ORY Leukocytes UA Negative Negative [facility] LABORATORY Appearance UA Cloudy (A) Clear [facility] LABORATORY Spec [place] UA >=1.030 (A) 1.006 - 1.030 [facility] LABORAT[facility] Color UA Brown (A) [facility] RBC UA 2 0 - 3 /HPF [facility] Comment: Interpret with caution, manual microscopic results are from an unspun specimen. WBC UA <1 0 - 3 /HPF [facility] Comment: Interpret with caution, manual microscopic results are from an unspun specimen. Bacteria UA Many (A) None /HPF [facility] Comment: Interpret with caution, manual microscopic results are from an unspun specimen. Squam Epith UA 1 <=4 /HPF [facility] Comment: Interpret with caution, manual microscopic results are from an unspun specimen. Hyaline Cast UA <1 0 - 2 /LPF [facility] LABOR[facility] Comment: Interpret with caution, manual microscopic results are from an unspun specimen. Amorph Mila UA Many (A) None /HPF [facility] Comment: Interpret with caution, manual microscopic results are from an unspun specimen. Specimen Anatomical Collection Method Collection Time Receive d Time (Source) Location / / Volume Laterality Urine 01/23/2022 1:30 AM 1:41 EDT AM EDT Resulting Agency Comment Spec In Lab Cristina Hlilman APRN URINE ORDERABLES Performing Organization Address City/State/[place] [address] Blood culture (01/23/2022 1:26 AM EDT) [facility] Method Time Signature Blood Culture No growth [facility] at 5 days. [facility] LABORATORY Specimen Anatomical Collection Method Collection Time Receive d Time (Source) Location / / Volume Laterality Blood 01/23/2022 1:26 AM 2 1:38 EDT AM EDT Comment: r wrist Resulting Agency Comment Spec In Lab Cristina Hillman APRN MICROBIOLOGY - BLOOD ORDERAB LES Performing Organization Address City/State/[place] [address] (ABNORMAL) BLOOD GAS 2 ARTERIAL (01/23/2022 1:25 AM EDT) [facility] Method Time Signature pH Art 7.32 (L) 7.35 - [facility] 7.45 [facility] LABOR[facility] pCO2 Art 33 (L) 35 - 45 [facility] mmHg [facility] pO2 Art 68 (L) 85 - 104 [facility] mmHg [facility] LABOR[facility] HCO3 Art 16.8 (L) 20.0 - [facility] 26.0 [facility] mmol/[facility] LABORATORY BE Art -9.3 (L) -3.0 - 3.0 [facility] mmol/L [facility] LABOR[facility] Hgb Blood Gas 20.4 13.7 - [facility] (Critical) 16.5 g/dL [facility] Comment: Noted by instrument maintenance supervisor. O2HB Art 92.4 (L) 94.0 - 97.0 % [facility] LABORATORY COHB Art 0.2 % [facility] LABORATORY Comment: Nonsmokers: 0.5-1.5% COHB Smokers: Variable, but usually less than 10% Toxic: 20-30% COHB Lethal: Greater than 60% COHB METHB Art 0.7 <=1.5 % [facility] LABORATORY Na Whole Blood 141 135 - 145 mmol/L [facility]OR[facility] K Whole Blood 5.3 (H) 3.5 - 5.0 mmol/L [facility] LABORATORY Comment: Please note: Patients with WBC >100,000 may have falsely elevated Potassium levels. Contact the Clinical Chemistry L aboratory if there are any questions. ICa Whole Blood 0.97 (L) 1.15 - 1.33 mmol/L [facility]OR[facility] Comment: Note: ??Total bilirubin higher than 20 m g/dL may lead to falsely low ionized calcium. CL Whole Blood 106 98 - 107 mmol/L [facility]ORAT[facility] Gluc Whole Bld 158 65 - 199 mg/dL [facility] LABORATORY Comment: Diabetes: >=200 mg/dL plus symp toms. Lactate WB 4.1 (Critical) 0.5 - 2.2 mmol/L [facility] LABORATORY Comment: Noted by instrument maintenance supervisor. FIO2 Art 75 % [facility] LABORATORY PF Ratio Art [address] [facility] LABORATORY Specimen Anatomical Collection Method Collection Time Receive d Time (Source) Location / / Volume Laterality Blood 01/23/2022 1:25 AM 2 1:25 EDT AM EDT Tex Robles MD CHEMISTRY ORDERABLES Performing Organization Address City/State/[place] [address] EKG 12 Lead (01/23/2022 12:46 AM EDT) Component Value Ref Range Test Analysis Performed Pathologis t Method Time At Signature Ventricular rate 147 BPM MUSE SYSTEM Atrial Rate 147 BPM MUSE SYSTEM P-R Interval 130 ms MUSE SYSTEM QRS Duration 84 ms MUSE SYSTEM Q-T Interval 268 ms MUSE SYSTEM QTC Calculated 419 ms MUSE SYSTEM (Bezet) Calculated P Holden 60 degrees MUSE SYSTEM Calculated R Holden 42 degrees MUSE SYSTEM Calculated T Holden 28 degrees MUSE SYSTEM INTERPRETATION Sinus tachycardia [...] EDT 12:39 PM EDT Gemma B Pentland ASSISTANT PROFESSOR OF SOCIOLOGY ECG ORDERABLES Performing Organization Address City/State/ZIP Code Phon e Number MUSE SYSTEM T4, free (01/23/2022 12:45 AM EDT) athologist Signature Free T4 1.19 0.93 - 1.70 [facility] ng/dL [facility] LAB[facility] Comment: Reference Interval (ng/dL): Females: ??First Trimester: 0.97-1.68 ??Second Trimester: 0.77-1.51 ??Third Trimester: 0.77-1.49 Specimen Anatomical Collection Method Collection Time Receive d Time (Source) Location / / Volume Laterality Blood 01/23/2022 12:45 01/23/2022 1:13 AM EDT AM EDT Resulting Agency Comment Spec In Lab Gemma B Pentland ASSISTANT PROFESSOR OF SOCIOLOGY CHEMISTRY ORDERABLES Performing Organization Address City/[facility] [place] [address] Triglyceride (01/23/2022 12:45 AM EDT) athologist Signature Triglycerides 273 mg/dL [facility] Comment: Average Risk/Lower Risk: <150 mg/dL Borderline High Risk: 150-199 mg/dL High Risk: 200-499 mg/dL Very High Risk: >hf=380 mg/dL Specimen Anatomical Collection Method Collection Time Receive d Time (Source) Location / / Volume Laterality Blood Venous Draw / 01/23/2022 12:45 01/23/2022 1:13 Unknown AM EDT AM EDT Resulting Agency Comment Spec In Lab Gemma B Pentland ASSISTANT PROFESSOR OF SOCIOLOGY CHEMISTRY ORDERABLES Performing Organization Address City/[facility]/ZIP [facility] Phon e Number [address] Type and Screen Validity (01/23/2022 12:45 AM EDT) [facility] gist Method Time Signature T&S only valid [facility] at [facility] LAB[facility]ORY Comment: This Type and Screen result is only valid at the [facility] Specimen Anatomical Collection Method Collection Time Receive d Time (Source) Location / / Volume Laterality Blood 01/23/2022 12:45 01/23/2022 AM EDT 12:51 AM EDT Resulting Agency Comment Spec In Lab [facility] ORDERABLES Performing Organization Address City/[facility]/ZIP Code Phon e Number [address] Scan, Peripheral Blood (01/23/2022 12:45 AM EDT) P athologist Signature Plat Estimate Normal [facility] LABORATORY RBC Morphology Normal [facility] LABORATORY Specimen Anatomical Collection Method Collection Time Receive d Time (Source) Location / / Volume Laterality Blood 01/23/2022 12:45 01/23/2022 1:08 AM EDT AM EDT Resulting Agency Comment Spec In Lab [facility] HEMATOLOGY ORDERABLES Performing Organization Address City/[facility]/[place] [address] (ABNORMAL) Differential, Automated (01/23/2022 12:45 AM EDT) [facility] Method Time Signature Neutrophils % 71.4 % [facility] LABORATORY Neutr Abs (ANC) 16.11 (H) 1.70 - [facility] 6.10 [facility] x10(3)/[facility] LABORATORY Lymphocytes % 17.4 % [facility] LABORATORY Lymphocytes Abs 3.9 (H) 0.9 - 3.2 [facility] x10(3)/[facility] LABORATORY Monocytes % 9.3 % [facility] LABORATORY Monocyte Abs 2.1 (H) 0.3 - 0.9 [facility] x10(3)/[facility] LABORATORY Eosinophils % 0.0 % [facility] LABORATORY Eosinophils Abs 0.0 0.0 - 0.4 [facility] x10(3)/[facility] LABORATORY Basophils % 0.5 % [facility] LABORATORY Basophils Abs 0.1 0.0 - 0.1 [facility] x10(3)/[facility] LABORATORY Immature Gran % 1.40 % [facility] LABORATORY Comment: Immature granulocytes(IG's)percentage an d absolute [...] EDT Resulting Agency Comment Spec In Lab [facility] HEMATOLOGY ORDERABLES Performing Organization Address City/State/ZIP Code Phon e Number [place] [id number] (ABNORMAL) Hemogram (01/23/2022 12:45 AM EDT) athologist Signature WBC 22.6 (H) 4.0 - 9.5 [facility] x10(3)/[facility] LABORATORY RBC 6.64 (H) 4.58 - [facility] 5.54 [facility] x10(6)/[facility] LABORATORY Hemoglobin 21.5 13.7 - [facility] (Critical) 16.5 g/dL [facility] LABORATORY Comment: Called by: HERMAN, Read back by: Halley Hoyt, Date/Time:01/23/22 01:33. Corrected from 21.5 g/dL [CRIT] on 01/23 1:33:32 EDT by Shelli Sauceda Hematocrit 63.2 (H) 40.5 - 48.5 % [facility] LABORATORY MCV 95.2 (H) 82.9 - 93.1 fL [facility] LABORATORY MCH 32.4 (H) 27.5 - 32.1 pg [facility] MCHC 34.0 32.0 - 35.7 g/dL [facility] LABORATORY Platelets 269 145 - 357 x10(3)/[facility] LABORATORY RDWSD 43.9 36.0 - 45.0 fL [facility] LABORATORY RDWCV 12.3 11.4 - 13.8 % [facility] LABORATORY MPV 9.7 7.6 - 12.9 fL [facility] LABORATORY nRBC % Auto 0.3 % JOSH MANDO [facility] LABORATORY nRBC Abs Auto 0.060 (H) 0.000 - 0.000 x10(3)/mcL M JON [facility] LABORATORY Specimen Anatomical Collection Method Collection Time Receive d Time (Source) Location / / Volume Laterality Blood 01/23/2022 12:45 01/23/2022 1:08 AM EDT AM EDT Resulting Agency Comment Spec In Lab Cristina Hillman ASSISTANT PROFESSOR OF SOCIOLOGY HEMATOLOGY ORDERABLES Performing Organization Address City/[facility]/ZIP Code Phon e Number [address] ABORH Recheck Status (01/23/2022 12:45 AM EDT) [facility] Method Time Signature ABORH Recheck Order Placed [facility] LABORATORY ABORH Type Complete [facility] LABORATORY Specimen Anatomical Collection Method Collection Time Receive d Time (Source) Location / / Volume Laterality Blood 01/23/2022 12:45 01/23/2022 AM EDT 12:51 AM EDT Resulting Agency Comment Spec In Lab Cristina Tongland ASSISTANT PROFESSOR OF SOCIOLOGY BLOOD BANK ORDERABLES Performing Organization Address City/[facility]/[place] [address] Antibody screen (01/23/2022 12:45 AM EDT) [facility] Method Time Signature Ab Screen Negative [facility] LABORATORY Expires at 01/26/2022 JOSH GILMORE [id number] on: [facility] LABORATORY Specimen Anatomical Collection Method Collection Time Receive d Time (Source) Location / / Volume Laterality Blood 01/23/2022 12:45 01/23/2022 AM EDT 12:51 AM EDT Resulting Agency Comment Spec In Lab Gemma B Alycialand ASSISTANT PROFESSOR OF SOCIOLOGY BLOOD BANK ORDERABLES Performing Organization Address City/[facility]/[place] [address] ABO/Rh Typing (01/23/2022 12:45 AM EDT) athologist Signature ABORh Type A Pos [facility] LABORATORY Specimen Anatomical Collection Method Collection Time Receive d Time (Source) Location / / Volume Laterality Blood 01/23/2022 12:45 01/23/2022 AM EDT 12:51 AM EDT Resulting Agency Comment Spec In Lab Cristina B Rafy ASSISTANT PROFESSOR OF SOCIOLOGY BLOOD BANK ORDERABLES Performing Organization Address City/State/[place] [address] (ABNORMAL) Basic Metabolic Panel (non-fasting) (01/23/2022 12:45 AM EDT) athologist Signature Glucose Lvl 143 65 - 199 [facility] mg/dL [facility] LABORATORY Comment: Diabetes: >=200 mg/dL plus symp toms BUN 47 (H) 10 - 20 mg/dL [facility] LABORATORY Creatinine 4.42 (H) 0.80 - 1.50 mg/dL [facility] LABORATORY Sodium 142 135 - 145 mmol/L [facility] LABORATORY Potassium 7.6 (Critical) 3.5 - 5.0 mmol/L [facility] LABORATORY Comment: Called by: kvng, Read back by: halley hoyt, Date/Time:01/23/22 02:03_. Please note: ??Patients with WBC >100,00 0 may have falsely elevated Potassium levels. ??For accurate Potassium quantif ication in these patients send serum separator tube (gold top) for subsequent determinations. ??Contact the Clinical Chemistry Laboratory if there are any qu estions. Chloride 102 98 - 107 mmol/L [facility] LABORATORY CO2 17 (L) 22 - 31 mmol/L [facility] LABORATORY Anion Gap 23 (H) 5 - 15 mmol/L [facility] LABORATORY Calcium 5.8 (Critical) 8.5 - 10.5 mg/dL [facility] LABORATORY Comment: Called by: kvng, Read back by: manny ruiz, Date/Time:01/23/22 02:03_. Estimated GFR 17 (L) >=60 mL/min/1.73 m?? [facility] LABORATORY Comment: This patient's estimated [...] Organization Address City/State/ZIP Code Phon e Number [address] (ABNORMAL) Phosphorus (01/23/2022 12:45 AM EDT) P athologist Signature Phosphorus 10.0 2.5 - 4.5 [facility] (Critical) mg/dL [facility] LABORATORY Comment: Called by: kvng, Read back by: manny ruiz, Date/Time:01/23/22 02:03_. Specimen Anatomical Collection Method Collection Time Receive d Time (Source) Location / / Volume Laterality Blood 01/23/2022 12:45 01/23/2022 1:08 AM EDT AM EDT Resulting Agency Comment Spec In Lab Gela Novak MD CHEMISTRY ORDERABLES Performing Organization Address City/State/ZIP Code Phon e Number [address] (ABNORMAL) Magnesium (01/23/2022 12:45 AM EDT) P athologist Signature Magnesium 1.08 (H) 0.69 - 1.07 [facility] M[facility] mmol/L [facility] LABORATORY Specimen Anatomical Collection Method Collection Time Receive d Time (Source) Location / / Volume Laterality Blood 01/23/2022 12:45 01/23/2022 1:08 AM EDT AM EDT Resulting Agency Comment Spec In Lab Gela Novak MD CHEMISTRY ORDERABLES Performing Organization Address City/[facility]/ZIP Code Phon e Number [address] (ABNORMAL) TSH Hemphill (01/23/2022 12:45 AM EDT) P athologist Signature TSH 7.69 (H) 0.27 - 4.20 [facility] MANDO mcIU/mL [facility] LABORATORY Comment: Reference Interval (mcIU/mL): Females: ??First Trimester: 0.23-3.88 ??Second Trimester: 0.22-3.90 ??Third Trimester: 0.44-4.66 Specimen Anatomical Collection Method Collection Time Receive d Time (Source) Location / / Volume Laterality Blood 01/23/2022 12:45 01/23/2022 1:08 AM EDT AM EDT Resulting Agency Comment Spec In Lab Gemma B Pentland ASSISTANT PROFESSOR OF SOCIOLOGY CHEMISTRY ORDERABLES Performing Organization Address City/State/[place] [address] (ABNORMAL) CK (01/23/2022 12:45 AM EDT) athologist Signature CK, Total >[id number] 0 - 200 JOS[facility] GILMORE (H) unit/L [facility] LABORATORY Specimen Anatomical Collection Method Collection Time Receive d Time (Source) Location / / Volume Laterality Blood 01/23/2022 12:45 01/23/2022 1:08 AM EDT AM EDT Resulting Agency Comment Spec In Lab Gemma B Pentland ASSISTANT PROFESSOR OF SOCIOLOGY CHEMISTRY ORDERABLES Performing Organization Address City/[facility]/ZIP Code Phon e Number [address] (ABNORMAL) Troponin (01/23/2022 12:45 AM EDT) P athologist Signature Troponin-T 0.43 (H) 0.00 - [facility] MANDO 0.00 ng/mL [facility] LABORATORY Comment: The 99th percentile for Troponin T is le ss than 0.01 ng/mL, any detectable cTnT concentration using this assay should be considered elevated. According to the third universal definit ion of myocardial infarction the following criteria with a clinical prese ntation consistent with acute myocardial ischemia meets the diagnosis for a myocardial infarction (DE). Detection of a rise and/or fall of [...] additional sample may be indicated. Reference: Third [place] Definition of Myocardial Infarction. Journal of the [place] [employer] 2012;60:1581-98 Specimen Anatomical Collection Method Collection Time Receive d Time (Source) Location / / Volume Laterality Blood 01/23/2022 12:45 01/23/2022 1:08 AM EDT AM EDT Resulting Agency Comment Spec In Lab Cristina Hillman ASSISTANT PROFESSOR OF SOCIOLOGY CHEMISTRY ORDERABLES Performing Organization Address City/State/[place] [address] (ABNORMAL) Hepatic Function Panel (01/23/2022 12:45 AM EDT) Analysis Performed At Patho logist Time Signature Total Protein 5.9 (L) 6.1 - 8.0 [facility] g/dL [facility] LABORATORY Albumin 3.1 (L) 3.2 - 5.2 [facility] g/[facility] LABORATORY AST >700 (H) 0 - 39 [facility] unit/L [facility] LABORATORY ALT >700 (H) 0 - 55 [facility] unit/L [facility] LABORATORY Alk Phos 71 40 - 130 [facility]/L [facility] LABORATORY Total 0.4 0.2 - 1.3 [facility] Bilirubin mg/dL [facility] LABORATORY Bili, Direct 0.2 0.0 - 0.3 [facility] mg/dL [facility] LABORATORY Specimen Anatomical Collection Method Collection Time Receive d Time (Source) Location / / Volume Laterality Blood 01/23/2022 12:45 01/23/2022 1:08 AM EDT AM EDT Resulting Agency Comment Spec In Lab [facility] ASSISTANT PROFESSOR OF SOCIOLOGY CHEMISTRY ORDERABLES Performing Organization Address City/[facility]/[place] [address] Fibrinogen (01/23/2022 12:45 AM EDT) athologist Signature Fibrinogen Disregard 200 - 393 [facility] LABORATORY Comment: A fibrinogen level [...] EDT Resulting Agency Comment Spec In Lab [facility] ASSISTANT PROFESSOR OF SOCIOLOGY HEMATOLOGY ORDERABLES Performing Organization Address City/[facility]/ZIP [facility] Phon e Number [place] [phone]OS[address] APTT (01/23/2022 12:45 AM EDT) athologist Signature PTT Disregard 25 - 37 [facility] LABORATORY Comment: The PTT is NOT appropriate [...] Comment Spec In Lab Gemma B Pentland ASSISTANT PROFESSOR OF SOCIOLOGY HEMATOLOGY ORDERABLES Performing Organization Address City/State/[place] [address] Prothrombin Time (01/23/2022 12:45 AM EDT) P athologist Signature PT Disregard 9.4 - 12.5 [facility] LABORATORY Comment: Disregard results due to high hematocrit result interference Called by: antonella, Read back by: halley hoyt, Date/Time:01/23/22 01:39. Corrected from 12.7 sec [HI] on 01/23/22 1:39:53 EDT by Robson Booth INR Disregard [facility] LABORATORY Comment: An INR [...] Comment Spec In Lab Gemma B Pentland ASSISTANT PROFESSOR OF SOCIOLOGY HEMATOLOGY ORDERABLES Performing Organization Address City/[facility]/[place] [address] POCT Glucose (01/23/2022 12:44 AM EDT) P athologist Signature POC Glucose 146 65 - 199 [facility] mg/dL [facility] LAB[facility] Comment: Supplemental ranges: <140 mg/dL before meals <180 mg/dL all other times of the day Specimen Anatomical Collection Method Collection Time Receive d Time (Source) Location / / Volume Laterality Blood 01/23/2022 12:44 01/23/2022 AM EDT 12:44 AM EDT Tex Robles MD POINT OF CARE TEST ORDERABLE S Performing Organization Address City/[facility]/[place] [address] MRSA PCR (01/23/2022 12:44 AM EDT) [facility] MetaJure Method Time Signature MRSA Result Negative Negative [facility] LABORATORY MRSA Interp Negative for methicillin-resistant Staphylococcus aureus (MRSA) [facility] This test was performed using the GeneXpert?? Dx System an d the Xpert MRSA MEMORIAL Assay. The MRSA target DNA was not detec karina. The sample processing control and HOSPITAL probe check were valid. The performance of this test was determined by the [facility] [place] LABORATORY Molecular Pathology Laboratory. It has been [...] - GENERAL ORDER JT Performing Organization Address City/[facility]/[place] [address] (ABNORMAL) COVID-19 PCR (01/23/2022 12:44 AM EDT) [facility] Meta[employer] Method Time Signature SARS-CoV-2 Detected (A) Not Detected JOSH RNA [facility] LABORATORY Comment: This result should [...] diagnosis of COVID-19 is performed using the TroopSwap S-CoV-2 Assay as authorized by the FDA Emergency Use Authorization (EUA). This EUA assay is intended for In-vitro Diagnostic (IVD) use with respiratory sp ecimens such as nasopharyngeal swabs collected from individuals during the ac pauma phase of infection. This assay is performed based on the instructions for use provided by [employer] and additional guidance provided by CDC and FDA. Testing is performed in the [facility] within the Department of Pathology and Laboratory Medicine at [facility], certified under the Clinical Laboratory Improvement [...] clinical management guidance information are available at e CDC Coronavirus Disease 2019 (COVID-19) webpage under Information fo r Healthcare Professionals (https://www.cdc.gov/coronavirus/2019-nc ov/hcp/index.html) Additional information about this and ot her EUA tests can be found in provider and patient fact sheets at the following FDA website: https://www.fda.gov/medical-devices/gpdeceeccuv-qlarqtl-7710-hahsq-61-myljdgvcp- pbw-taeenognckwlfj-htajqth-devices/surem-xssdymrffyt-rhit SARS-Cov-2 RNA Source Trach Asp [facility] Specimen Anatomical Collection Method Collection Time Receive d Time (Source) Location / / Volume Laterality Tracheal 01/23/2022 12:44 01/23/2022 8:48 Aspirate AM EDT AM EDT Comment: Symptoms->COVID-19 Suspected Resulting Agency Comment Spec In Lab Cristina Hillman APRN MICROBIOLOGY - GENERAL ORDER JT Performing Organization Address City/State/ZIP Code Phon e Number [place] [id number] documented in this encounter [...] Meredith 03/04/22 at 0645, Until Discontinued, Routine Given 03/22/2022 [...] , Routine amLODIPine (Norvasc) tablet 10 mg 33 (Given - Provider: Ashley Peck RN) 0844 (Given - Provider: Josh Peck RN) 0819 (Given - Provider: Corina Zabala, RN) 10 mg, Oral, DAILY, First dose (after la st modification) on Tue02/23/22 at 0900, Until Discontinued, Routine ascorbic acid (Vitamin C) (Vitamin C) tablet 250 mg 08 32 (Given - Provider: Josh Peck RN) 0850 (Given - Provider: Josh Peck, ÁNGEL) 0819 (Gi honorio - Provider: Corina Zabala, ÁNGEL) 250 mg, Oral, DAILY, First dose (after l ast modification) on Tue02/12/22 at 0900, Until Discontinued, Routine buprenorphine-naloxone (Suboxone) 2-0.5 mg disintegrating tablet 1 tablet (COMPLETED) 831 (Given - Provider: Josh Peck RN) 1 tablet (2 mg of opiate), Sublingual, 2 TIMES DAILY, 2 doses, First dose on 03/20/22 at 2100, Last dose on Tue03/21/22 at 0900, Day 3. 2 mg opiate [...] on 03/21/22 at 2100, Last dose on Tue03/22/22 at [...] Josh Peck RN)204 (Given - Provider: Betzaida Francois, ÁNGEL) 0819 (Given - Provider: Corina Zabala, RN) 10 mg, Oral, 2 TIMES DAILY, [...] Keenan, ÁNGEL)1238 (Given - Provider: Josh Peck RN)2042 (Given - Provider: Betzaida Francois RN) 0304 (Given - Provider: Betzaida Francois RN)1200 (Not Given - Provider: Corina Zabala, ÁNGEL - Reason: Patient/family refused) 5,000 Units, Subcutaneous, [...] Josh Peck RN)2158 (Given - Provider: Hernán Carlos, ÁNGEL) 0851 (Given - Provider: Josh Peck RN)204 [...] Josh Peck RN)2155 (Given - Provider: Hernán Carlos, ÁNGEL) 0852 (Given - Provider: Josh Peck RN)1239 [...] 01/23/22 Precautions may be discontinued by the [facility] care team after the required isolation period (10 or 20 days, depending on the clinical circumstances) when the patient is clinically improving and has be en afebrile for 24 hours without fever reducing medications. Estimated date patient will be eligible for precaution removal: 02/03/22 Please call [phone] with questions. Rule Out C. difficile 02/01/2022 [...] prior to 04/25/22 Please call Infection Prevention [phone] with questions. COVID-19Comment: Original COVID-19 test 01/23. Developed symptoms again 02/04/22 so extending isolation to 20 days. 02/04/2022 02/04/2022 02/09/20 1:57 PM EDT Eligible for precaution removal 02/13/22 History of COVID-19Comment: Retesting fo r COVID is not recommended unless infectious syndrome persists with no alternate explanation. 02/08/2022 02/08/2022 Positive test on 01/23/2022 Please do not retest prior to 04/25/2022 Please call Infection Prevention [phone] with questions. History of C. difficileComment: 03/19/2022 03/19/2022 Patient has met the 5 C's and is eligible to end soap and water contact precautions. Currently on PO vanc prophylacticly due to getting antibiotics for tx. documented as of this encounter Care Teams Principal Ios Developer Relationship Specialty Start Date End Date None PCP - General 03/10/19 None documented as of this encounter
--- OUTSIDE RECORDS SUMMARY | 2022-04-21 11:34 | XMS_ITS | Encounter Summary ---
:1990 [place] [address] Care Team Providers Name Role Phone None Primary Care Provider Unavailable Reason for Visit Auth/Cert Specialty Diagnoses / Procedures Referred By Contact Refer red To Contact Diagnoses Cardiac arrest intubated med misuse/covid Ximena Robles MD [facility] Procedures ER IPI Admit [facility] [place] [address] Referral ID Status Reason Start Date Expiration Date Visits Requ ested Visits Authorized [id number] 1 1 Encounter Details Date Type Department Care Team Description 02/05/2022 Anesthesia Event Main Operating Room Zackary Miranda [facility] Lucretia esteban [place] [address] [place] [address] [phone] (Wo rk) Anesthesia Record Procedure Summary Procedure Name Responsible Anesthesia Start Anesthesia Stop Anesthesiologist Time Time DEBRIDEMENT SKIN, Alfonso Vu MD 02/05/22 1245 1535 SUBCU, MUSCLE, LOWER EXTREMITY (WRVU 2.7) (Left Leg) Events Date Time Event Comment 02/05/2022 1245 Start 1250 AN Verify 1251 An Start Data 1256 An Induction 1259 An Intubation 1300 Anesthesia Ready 1320 Break/Relief In I assumed care f or [...] opportunity for questions and acknowledgement of understanding Lemuel Lopez CRNA 1353 Procedure Start 1354 Break/Relief Out 1440 Procedure Stop 1447 Extubation/LMA Out 1451 Quick Note COVID - recoveri ng in OR (bed in ICU, but technically rosy or status) 1515 Quick Note Patient awake, a lert, and oriented; actively conversing with staff. Spontaneous ventilation on R A without issue. VSS. 1520 an stop data 1534 Recovery or ICU Handoff Patient transported from OR to ICU on full transport monito rs and RA by MARIA ELENA and anesthesia. VSS throughout transport. Patient placed back on I CU monitors. Patient awake, alert, and orien karina; actively conversing with staff. Spontaneo us ventilation on RA without issue. VSS. Full report given to SECRETARY SPECIALIST. Transfer of care back to ICU team. Patient care was transfe rred to the destination unit staff after revi ew of the patient's medical history, current anesthetic/surgical status and plan, accord ing to the Provider Handoff Checklist. 1535 Stop 1818 Name Total Midazolam 2 mg Propofol 100 mg Rocuronium 70 mg PHENYLephrine 560 mcg ePHEDrine 5 mg Ondansetron 4 mg HYDROmorphone 2 mg/mL 1 mg Propofol INF 554.8 mg PHENYLephrine INF 7,315 mcg Lidocaine 4% LTA 3 mL Vasopressin 1 Units Lactated Ringers 1,000 mL Sodium Chloride 0.9% 100 mL Agents Name [...] (volar surface); vertical Emma Otero RN Incision 04/27/13; jaw (inside 04/27/13 0000 by 02/09/22 1508 by mouth approach. ); Jennifer Conway RN Argiro, Matthew P, 02/09/22; 1508 RN Urethral Catheter 01/23/22; 0035; Q1-2hr 01/23/22 0035 by 1759 by UOP in ICU patient Cori Ellison, ÁNGEL Robertson, Vict oria H, without alternative; RN urethral catheter removed, tubing intact, other (see comments); Per MD; 02/05/22; 1759 CVC 3 Lumen 01/23/22; 0600; internal 01/23/22 0600 by 1230 by jugular vein, right; Helena Zapien RN Maxham, Perri L, RN lumen/catheter not patent (new lumen was changed over a wire); cathflo instilled x2, unable to pull from venous cath; 02/07/22; 1230 Incision 01/23/22; 0931; Left 01/23/22 0931 by 03/06/22 1 543 by (dorsal surface); arm; Emma Otero RN Barraza Wendy sanderson RN vertical; 03/06/22; 1543 CVC 3 Lumen 01/23/22; 1625; internal 01/23/22 1625 by 1330 by jugular vein, left; no Pushee, ÁNGEL Fierro nTung RN longer indicated, removed per policy/procedure, site care per policy/procedure, catheter/device intact; 02/10/22; 1330 Incision 01/26/22; 1625; Left; 01/26/22 1625 by 03/06/22 0738 by palm; dressing xerofrom, Toan Robbins RN L Wendy ba RN abd, aide 4inch aplied on 01/26 at 1730; 03/06/22; 0738 NPWT 01/26/22; 1712; Left, 01/26/22 1712 by 02/11/22 1021 by anterior; arm; 02/11/22; Toan Robbins RN B Gaurang elliott RN 1021 Incision 02/04/22; 1738; Left, 02/04/22 1738 by 03/06/22 1544 by lower; arm; 03/06/22; Rashmi, ÁNGEL Morejon, Wendy Espinoza RN 1544 Incision 02/04/22; 1848; Left, 02/04/22 1848 by 02/09/22 0923 by lower; leg; LDA not Rashmi, ÁNGEL Morejon, Maureen Machado RN present upon assessment (duplicate); 02/09/22; 0923 Incision 02/04/22; 1849; Left; 02/04/22 1849 by 02/09/22 0922 by thigh; LDA not present Wendy Caraballo RN Pat t, Maureen Machado RN upon assessment (duplicate); 02/09/22; 921 NPWT 02/05/22; Left, anterior; 02/05/22 0000 by 02/06 0000 by thigh; 02/06/22; 0000 Bita Amezquita RN Maxham, Perri L, RN ETT Mask Ventilation: Easy 02/05/22 1259 by 02/05/22 1447 by (1); ETT Type: Cuffed, Alesha, Judy S, Coppol a, Judy S, Oral; ETT Size: 7.5 mm; 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 FARMER LIVESTOCK FARMER Mac Blade: 3; Notes: Asleep, Pre-O2, Stylette; Attempts: 1; Laryngoscopy Grade: 1; ETT Placement Verified By: Auscultation, Capnometry, Visual; Secured at Teeth: 23 cm; Inserted by: Judy Eduardo CRNA documented in [...] encounter OR Notes Anesthesia Postprocedure Evaluation - Alfonso Vu MD - 02/05/2022 6:18 PM EDT Department of Anesthesiology Post-procedure Note Patient: Eric Packer Procedure Summary Date: 02/05/22 Room / Location: [facility] MAIN OR Anesthesia Start: 1245 Anesthesia Stop: 1535 Procedures: DEBRIDEMENT SKIN, SUBCU, MUSCLE, LOWER EXTREMITY (WRVU 2.7) (Left Leg) MODIFIER WOUND VAC (Left Leg Lower) DRESSING CHANGE (VAC ASSISTED) UP TO 50SQ.CM (WRVU 0.55) (Left Leg Lower) DRESSING CHANGE (VAC ASSISTED) UP TO 50SQ.CM (WRVU 0.55) (Left Arm Lower) Diagnosis: (L thigh and Lforearm wounds) Surgeons: Tom Valdovinos MD; Orville Hennessy MD Responsible Provider: Alfonso Vu MD Anesthesia Type: general ASA Status: 3 All Anesthesia Providers: Anesthesiologist: Alfonso Vu MD LIVESTOCK FARMER: Judy Eduardo CRNA Vitals Value Taken Time BP 100/50 02/05/22 1815 Temp 36.6 ??C (97.9 ??F) 02/05/22 1532 Pulse 121 02/05/22 1817 Resp 14 02/05/22 1817 SpO2 99 % 02/05/22 1817 Pain Level 10 02/05/22 1532 Vitals shown include unvalidated device data. Patient Location: [facility] Level of Consciousness: Awake and Alert Pain Management: Satisfactory Analgesia PONV: None Cardiovascular Status: At Baseline and Hemodynamically Stable Respiratory Status: At Baseline and Room Air Postoperative Fluid Status: Intravascular EUvolemia Possible Anesthetic Complications: NONE apparent at time of evaluation Final Primary Anesthesia Type: General (The anesthetic type performed was the same as planned.) Comments: Alfonso Vu MD Anesthesia Preprocedure Evaluation - Alfonso Vu MD - 02/05/2022 8:40 AM EDT Pre-Anesthesia Evaluation for: Eric Packer [...] (WRVU 4.1) performed by Tom Valdovinos MD [facility] MAIN OR ? ? PRO DEBRIDEMENT BONE MUSCLE &/FASCIA 20 SQ CM/< Left 01/31/2022 DEBRIDEMENT SKIN, SUBCU, MUSCLE, BONE, LOWER EXTREMITY (WRVU 4.1) performed by Jose Branch MD at [facility] MAIN OR ? ? PRO DEBRIDEMENT BONE MUSCLE &/FASCIA 20 SQ CM/< Left 01/31/2022 DEBRIDEMENT SKIN, SUBCU, MUSCLE, BONE UPPER EXTREMITY (WRVU 4.1) performed by Jose Branch MDat [facility] MAIN OR ? ? PRO DEBRIDEMENT BONE MUSCLE &/FASCIA 20 SQ CM/< Left 02/02/2022 DEBRIDEMENT SKIN, SUBCU, MUSCLE, BONE UPPER EXTREMITY (WRVU 4.1) performed by Hina Avitia MD at [facility] MAIN OR ? ? PRO DEBRIDEMENT BONE MUSCLE &/FASCIA 20 SQ CM/< Left 02/02/2022 DEBRIDEMENT SKIN, SUBCU, MUSCLE, BONE, LOWER EXTREMITY (WRVU 4.1) performed by Hina Avitia MD at [facility] MAIN OR ? ? PRO DEBRIDEMENT MUSCLE AND FASCIA 20 SQ CM/< Left 01/26/2022 DEBRIDEMENT SKIN, SUBCU, MUSCLE, LOWER EXTREMITY (WRVU 2.7) performed by Sigifredo Garcia MD at [facility] OR ? ? PRO DEBRIDEMENT MUSCLE AND FASCIA 20 SQ CM/< Left 01/26/2022 DEBRIDEMENT SKIN, SUBCU, MUSCLE, UPPER EXTREMITY (WRVU 2.7) performed by Sigifredo Garcia MD at [facility] OR ??? PRO DECOMP FOREARM, 2 COMPART, W/O DEBRIDE Left 01/23/2022 FASCIOTOMY; FOREARM AND\OR WRIST, FLEXOR & EXTENS. COMP (WRVU 10.79) performed by Sigifredo Garcia MD at [facility] OR ??? PRO DECOMPRESS ANT/LAT+POST LEG CMPART Left 01/23/2022 FASCIOTOMY, LOWER LEG, ALL COMPARTMENTS (WRVU 7.82) performed by Sigifredo Garcia MD at [facility] OR ??? PRO INCIS OF HIP/THIGH FASCIA Left 01/23/2022 @FASCIOTOMY,THIGH OR HIP FOR COMPARTMENT SYNDROME (WRVU 12.89) performed by Sigifredo Garcia MD at [facility] OR ??? PRO OPEN TREAT MANDIBLE CONDYLE FX, COMPL 04/27/2013 OPEN TREATMENT, COMPLEX MANDIBLE FX., MULTI APPROACH, W/ FIXATION performed by Kishore Neil MD at [facility] OR ??? PRO REVISE MEDIAN N/CARPAL TUNNEL SURG Left 01/23/2022 MEDIAN NERVE DECOMPRESSION (CARPAL TUNNEL RELEASE) (WRVU 4.97) performed by Sigifredo Garcia MD at [facility] OR ??? PRO SEC CLSR SURG WOUND/DEHSN EXTENSIVE/COMPLICATED Left 01/26/2022 SECONDARY CLOSURE SURGICAL WOUND OR DEHISCENCE, EXTENSIVE OR COMPLICATED, UPPER EXTREMITY (WRVU 12.04) performed by Sigifredo Garcia MD at [facility] MAIN OR Social History Tobacco Use ??? [...] 1.9 oz) Last edited 02/05/22 0800 by VQ Currently displaying vitals information from multiple entries within 180 minutes of most recent vitals. Airway Assessment: Mallampati: II TM distance: >3 FB Neck ROM: full Cardiovascular Assessment: system normal Pulmonary Assessment: pulmonary exam normal Dental Assessment: Misc Assessment: Last Filed Perioperative Cognitive Screening None Anesthesia Plan: ASA 3 general, 31yo male w/ multiple fasciotomies for wound vac changes Serial consent Informed Consent: Anesthesia Screening documented in this encounter Plan of Treatment Upcoming Encounters Date Type Specialty Care Team Description 06/09/2022 Procedure visit Neurology Summer Wiggins MD [facility] NEUROLOGY DEPT [place], [place] [address] (Wo rk) Scheduled Procedures Name [...] MAR Action Action Date Dose Rate Site ePHEDrine sulfate (5 mg/mL) Given 02/05/2022 1:55 PM EDT 5 mg multi-dose injection Intravenous, PRN, Starting on Tue02/05/22 at 1355, Until Tue02/05/22 at 1551, Anesthesia Intra-op, Routine HYDROmorphone (Dilaudid) (2 mg/mL) multi-dose Given 1:10 PM EDT 0.4 mg injection solution Intravenous, PRN, Starting on Tue02/05/22 at 1310, Until Tue02/05/22 at 1551, Anesthesia Intra-op, Routine Given 02/05/2022 12:56 PM EDT 0.4 mg Given 02/05/2022 12:45 PM EDT 0.2 mg lactated ringers infusion New Bag 02/05/2022 12:55 PM EDT Intravenous, CONTINUOUS PRN, Starting on Tue02/05/22 at 1255, Until Tue02/05/22 at 1551, Anesthesia Intra-op lidocaine (XYLOCAINE) 4 % external solut ion Given 02/05/2022 12:59 PM EDT 3 mLs Intratracheal, PRN, Starting on Tue02/05/22 at 1259, Until Tue02/05/22 at 1551, Anesthesia Intra-op midazolam (pf) (Versed) (1 mg/mL) multi-dose Given 12:45 PM EDT 2 mg injection Intravenous, PRN, Starting on Tue02/05/22 at 1245, Until Tue02/05/22 at 1551, Anesthesia Intra-op, Routine ondansetron (pf) (Zofran) (2 mg/mL) inje ction Given 02/05/2022 2:35 PM EDT 4 mg Intravenous, PRN, Starting on Tue02/05/22 at 1435, Until Tue02/05/22 at 1551, Anesthesia Intra-op, Routine PHENYLephrine Rate/Dose Change 02/05/2022 2:55 30 mcg/min 22.5 mL/hr (Rustam-Synephrine) (80 mcg/mL) PM EDT in sodium chloride 0.9% 250 mL infusion Intravenous, CONTINUOUS PRN, Starting on Tue02/05/22 at 1325, Until Tue02/05/22 at 1551, Anesthesia Intra-op, Routine Rate/Dose Change 02/05/2022 2:45 PM EDT 50 mcg/min 37.5 mL/hr Rate/Dose Change 02/05/2022 2:02 PM EDT 100 mcg/min 75 mL/hr PHENYLephrine in NS (PF) (RUSTAM-SYNEPHRINE) Given 02/05/2022 1:45 PM EDT 160 mcg 0.8 mg/10 mL (80 mcg/mL) multi-dose injection Syrg Intravenous, PRN, Starting on Tue02/05/22 at 1320, Until Tue02/05/22 at 1551, Anesthesia Intra-op, Routine Given 02/05/2022 1:24 PM EDT 160 mcg Given 02/05/2022 1:21 PM EDT 160 mcg propofoL (Diprivan) (10 mg/mL) New Bag 02/05/2022 1:00 PM 50 m cg/kg/min 35.04 mL/hr infusion EDT Intravenous, CONTINUOUS PRN, Starting on Tue02/05/22 at 1300, Until Tue02/05/22 at 1551, Anesthesia Intra-op, Routine propofoL (Diprivan) 10 mg/mL bolus injection Given 03/2022 12:56 PM EDT 100 mg (Anesthesia) Intravenous, PRN, Starting on Tue02/05/22 at 1256, Until Tue02/05/22 at 1551, Anesthesia Intra-op rocuronium (Zemuron) (10 mg/mL) multi-dose Given 02/05/2022 1:49 PM EDT 20 mg injection Intravenous, PRN, Starting on Tue02/05/22 at 1257, Until Tue02/05/22 at 1551, Anesthesia Intra-op, Routine Given 02/05/2022 12:57 PM EDT 50 mg sodium chloride 0.9% infusion New Bag 02/05/2022 2:30 PM EDT Intravenous, CONTINUOUS PRN, Starting on Tue02/05/22 at 1430, Until Tue02/05/22 at 1551, Anesthesia Intra-op vasopressin (Vasostrict) injection Given 02/05/2022 2:12 PM EDT 1 Units Intravenous, PRN, Starting on Tue02/05/22 at 1412, Until Tue02/05/22 at 1551, Anesthesia Intra-op, Routine documented in this encounter Additional Health Concerns Infection Onset Date Last Indicated Resolved Time C. difficileComment: Josefagibe to end 02/01/2022 02/01/2022 03/19/2022 3:02 PM EDT [facility] CP COVID-19Comment: Original COVID-19 test 01/23. Developed symptoms again 02/04/22 so extending isolation to 20 days. 02/04/2022 02/04/2022 02/09/20 1:57 PM EDT Eligible for precaution removal 02/13/22 documented as of this encounter Care Teams Appeals Assistant Relationship Specialty Start Date End Date None PCP - General 03/10/19 None documented as of this encounter
--- OUTSIDE RECORDS SUMMARY | 2022-04-21 11:35 | XMS_ITS | Encounter Summary ---
:1990 [place] [address] Care Team Providers Name Role Phone None Primary Care Provider Unavailable Reason for Visit Auth/Cert Specialty Diagnoses / Procedures Referred By Contact Refer red To Contact Diagnoses Cardiac arrest intubated med misuse/covid Ximena Robles MD [facility] Procedures ER IPI Admit [facility] [place] [address] Referral ID Status Reason Start Date Expiration Date Visits Requ ested Visits Authorized [id number] 1 1 Encounter Details Date Type Department Care Team Description 02/04/2022 Anesthesia Event Main Operating Room Dominic Leach MD [facility] [place] [address] Matilda Hollins Anesthesia, Anesthesi[place] [id number] Anesthesia Record Procedure Summary Procedure Name Responsible Anesthesia Start Anesthesia Stop Anesthesiologist Time Time DEBRIDEMENT SKIN, Davion Leach MD 02/04/22 1700 2 1913 SUBCU, MUSCLE, LOWER EXTREMITY (WRVU 2.7) (Left Leg) Events Date Time Event Comment 02/04/2022 1504 1700 AN Verify 1700 Start 1700 An Start Data 1707 An Induction 1710 An Intubation 1712 Anesthesia Ready 1724 Handoff Intra-procedure anesthesia care was transferred afte r review of the patient's history, current anesthetic/surgical status and procedural p yuval, anticipated issues and expected post-op erative course (including disposition.) Adan Leach MD 1742 Procedure Start 1840 ABG Data Venous Blood Gas Result: pH 7.339 pCO2 43 mmHg pO2 34.1 mm Hg HCO3 22.6 mmol/L BE -3.6 mmol/L O2 Sat 10 0 % FiO2 70 % tHgb 7.4 g/dL Na 117.6 mmol/L K 5.20 mmol/L iCa 0.99 mmol/L Cl 92 mmol/L Glu cose 100 mg/dL Lactate 1.46 mmol/L 184 Extubation/LMA Out 1851 An Data Art 185 an stop data 1858 Transport Patient transpor karina from OR 7 to [facility] with ASA monitors in place and emergency medications/equi pment at bedside. Oxygen via simple face mask at 6 L/min without any airway adjuncts. Hemodynamically stable throughout trans port. 190 Recovery or ICU Handoff Patient care was transferred to the destination unit staff after review of the patient's medica l history, current anesthetic/surgi moe status and plan, according to the Provider Handoff Checklist. 1912 Stop Recovery criteri a met for patient to return to [facility]. Baseli ne mental status has returned to alert, orient ed to person, place, and time. Vital sign s are stable with adequate, non-labored resp irations. On room air with SpO2 > 92%. Bloo d pressure within 20% of preanesthetic le renny. Satisfactory analgesia and denies nause a. Report provided to RN with all questions so ught and answered. Transported via inpatient bed. Name Total Propofol 200 mg Ondansetron 8 mg ePHEDrine 10 mg PHENYLephrine 1,280 mcg Dexmedetomidine 12 mcg ceFAZolin 2 g HYDROmorphone 2 mg/mL 2 mg Lactated Ringers 300 mL Agents Name O2 Air N2O Sevoflurane (et) Blood No blood administrations on file. Lines, Drains, and Airways Type Details Placement Removal Incision 01/23/22; 0829; Left, 01/23/22 0829 by lateral; calf; vertical Emma Otero RN Incision 01/23/22; 0841; Left, 01/23/22 0841 by lateral; thigh; vertical Emma Otero RN Incision 01/23/22; 0858; Left; 01/23/22 0858 by arm (volar surface); Emma Otero RN vertical Incision 04/27/13; jaw (inside 04/27/13 0000 by 02/09/22 1508 by mouth approach. ); Jennifer Conway RN Argiro, Matthew P, RN 02/09/22; 1508 Urethral Catheter 01/23/22; 0035; Q1-2hr 01/23/22 0035 by 1759 by UOP in ICU patient Cori Ellison RN Queen, Marvin Caal RN without alternative; urethral catheter removed, tubing intact, other (see comments); Per MD; 02/05/22; 1759 CVC 3 Lumen 01/23/22; 0600; internal 01/23/22 0600 by 1230 by jugular vein, right; Helena aZpien RN Maxham, Perri L RN lumen/catheter not patent (new lumen was changed over a wire); cathflo instilled x2, unable to pull from venous cath; 02/07/22; 1230 Incision 01/23/22; 0931; Left 01/23/22 0931 by 03/06/22 1 543 by (dorsal surface); arm; Emma Otero RN Lim anek, Lisa R, RN vertical; 03/06/22; 1543 CVC 3 Lumen 01/23/22; 1625; internal 01/23/22 1625 by 1330 by jugular vein, left; no PusheeTung RN Benso n, Jacob P RN longer indicated, removed per policy/procedure, site care per policy/procedure, catheter/device intact; 02/10/22; 1330 Incision 01/26/22; 1625; Left; 01/26/22 1625 by 03/06/22 0738 by palm; dressing xerofrom, Toan Robbins RN L Wendy ba RN abd, aide 4inch aplied on 01/26 at 1730; 03/06/22; 0738 NPWT 01/26/22; 1709; Left, 01/26/22 1709 by 02/04/22 1849 by anterior; thigh; Toan Robbins RN Lightfoot, Lisa M, RN 02/04/22; 1849 NPWT 01/26/22; 1712; Left, 01/26/22 1712 by 02/11/22 1021 by anterior; arm; 02/11/22; Toan Robbins RN B Gaurang elliott RN 1021 Supraglottic Mask Ventilation: Not 02/04/22 1710 by 02/04/22 1847 by Attempted (0); LMA Type: Mami Waters, RN CONCURRENT REVIEW B Caden calhoun, iGel; LMA Size: 5; RN CONCURRENT REVIEW Inserted by: Evelin, MARIA ELENA Incision 02/04/22; 1738; Left, 02/04/22 1738 by 03/06/22 1544 by lower; arm; 03/06/22; Wendy Caraballo RN Lima nek, Wendy Espinoza RN 1544 Incision 02/04/22; 1848; Left, 02/04/22 1848 by 02/09/22 0923 by lower; leg; LDA not Wendy Caraballo RN Patt, Maureen Machado, RN present upon assessment (duplicate); 02/09/22; 09 Incision 02/04/22; 184; Left; 02/04/22 184 by 02/09/22 0922 by thigh; LDA not present Wendy Caraballo RN Pat t, Maureen Machado RN upon assessment (duplicate); 02/09/22; 921 documented in this encounter Social History Tobacco [...] encounter OR Notes Anesthesia Postprocedure Evaluation - Davion Leach MD - 02/05/2022 12:55 PM EDT Department of Anesthesiology Post-procedure Note Patient: Eric Packer Procedure Summary Date: 02/04/22 Room / Location: [facility] OR [facility] MAIN OR Anesthesia Start: 1699 Anesthesia Stop: 1912 Procedures: DEBRIDEMENT SKIN, SUBCU, MUSCLE, LOWER EXTREMITY (WRVU 2.7) (Left Leg) DEBRIDEMENT SKIN AND SUBCU, UPPER EXTREMITY (WRVU 1.01) (Left Arm Lower) MODIFIER WOUND VAC (N/A ) Diagnosis: (L forearm, thigh, leg fasciotomies s/p wound vac placement) Surgeons: Sigifredo Garcia MD Responsible Provider: Davion Leach MD Anesthesia Type: general ASA Status: 3 All Anesthesia Providers: Anesthesiologist: Davion Leach MD; Nathan Ricardo MD RN CONCURRENT REVIEW: Caden Valderrama CRNA; Mami Waters CRNA Vitals Value Taken Time BP 121/66 02/05/22 1230 Temp 36.6 ??C (97.9 ??F) 02/05/22 1140 Pulse 116 02/05/22 1240 Resp 13 02/05/22 1240 SpO2 99 % 02/05/22 1240 Pain Level 10 02/05/22 0800 Vitals shown include unvalidated device data. Patient Location: Floor Level of Consciousness: Awake and Alert Pain Management: Satisfactory Analgesia PONV: None Cardiovascular Status: At Baseline Respiratory Status: At Baseline Postoperative Fluid Status: Intravascular EUvolemia Possible Anesthetic Complications: NONE apparent at time of evaluation Final Primary Anesthesia Type: General (The anesthetic type performed was the same as planned.) Comments: Doing well at time of handoff last evening Anesthesia Preprocedure Evaluation - Nathan Ricardo MD - 02/04/2022 3:02 PM EDT Pre-Anesthesia Evaluation for: Eric Packer a 31 y.o. male. Procedure(s): DEBRIDEMENT SKIN, SUBCU, MUSCLE, LOWER EXTREMITY (WRVU 2.7) DEBRIDEMENT SKIN AND SUBCU, UPPER EXTREMITY (WRVU 1.01) MODIFIER WOUND VAC Patient Active Problem List Diagnosis Date Noted ??? Transaminitis 01/24/2022 ??? Aspiration pneumonia 01/24/2022 ? ? *LIZESHAMAR compartment syndrome s/p fasciotimies, I&D 01/23/22, 01/26/22 [...] (WRVU 4.1) performed by Tom Valdovinos MD [facility] MAIN OR ? ? PRO DEBRIDEMENT BONE MUSCLE &/FASCIA 20 SQ CM/< Left 01/31/2022 DEBRIDEMENT SKIN, SUBCU, MUSCLE, BONE, LOWER EXTREMITY (WRVU 4.1) performed by Jose Branch MD at [facility] MAIN OR ? ? PRO DEBRIDEMENT BONE MUSCLE &/FASCIA 20 SQ CM/< Left 01/31/2022 DEBRIDEMENT SKIN, SUBCU, MUSCLE, BONE UPPER EXTREMITY (WRVU 4.1) performed by Jose Branch MDat [facility] MAIN OR ? ? PRO DEBRIDEMENT BONE MUSCLE &/FASCIA 20 SQ CM/< Left 02/02/2022 DEBRIDEMENT SKIN, SUBCU, MUSCLE, BONE UPPER EXTREMITY (WRVU 4.1) performed by Hina Avitia MD at [facility] MAIN OR ? ? PRO DEBRIDEMENT BONE MUSCLE &/FASCIA 20 SQ CM/< Left 02/02/2022 DEBRIDEMENT SKIN, SUBCU, MUSCLE, BONE, LOWER EXTREMITY (WRVU 4.1) performed by Hina Avitia MD at [facility] MAIN OR ? ? PRO DEBRIDEMENT MUSCLE AND FASCIA 20 SQ CM/< Left 01/26/2022 DEBRIDEMENT SKIN, SUBCU, MUSCLE, LOWER EXTREMITY (WRVU 2.7) performed by Sigifredo Garcia MD at [facility] MAIN OR ? ? PRO DEBRIDEMENT MUSCLE AND FASCIA 20 SQ CM/< Left 01/26/2022 DEBRIDEMENT SKIN, SUBCU, MUSCLE, UPPER EXTREMITY (WRVU 2.7) performed by Sigifredo Garcia MD at [facility] MAIN OR ??? PRO DECOMP FOREARM, 2 COMPART, W/O DEBRIDE Left 01/23/2022 FASCIOTOMY; FOREARM AND\OR WRIST, FLEXOR & EXTENS. COMP (WRVU 10.79) performed by Sigifredo Garcia MD at [facility] MAIN OR ??? PRO DECOMPRESS ANT/LAT+POST LEG CMPART Left 01/23/2022 FASCIOTOMY, LOWER LEG, ALL COMPARTMENTS (WRVU 7.82) performed by Sigifredo Garcia MD at [facility] MAIN OR ??? PRO INCIS OF HIP/THIGH FASCIA Left 01/23/2022 @FASCIOTOMY,THIGH OR HIP FOR COMPARTMENT SYNDROME (WRVU 12.89) performed by Sigifredo Garcia MD at [facility] MAIN OR ??? PRO OPEN TREAT MANDIBLE CONDYLE FX, COMPL 04/27/2013 OPEN TREATMENT, COMPLEX MANDIBLE FX., MULTI APPROACH, W/ FIXATION performed by Kishore Neil MD at [facility] MAIN OR ??? PRO REVISE MEDIAN N/CARPAL TUNNEL SURG Left 01/23/2022 MEDIAN NERVE DECOMPRESSION (CARPAL TUNNEL RELEASE) (WRVU 4.97) performed by Sigifredo Garcia MD at [facility] MAIN OR ??? PRO SEC CLSR SURG WOUND/DEHSN EXTENSIVE/COMPLICATED Left 01/26/2022 SECONDARY CLOSURE SURGICAL WOUND OR DEHISCENCE, EXTENSIVE OR COMPLICATED, UPPER EXTREMITY (WRVU 12.04) performed by Sigifredo Garcia MD at [facility] MAIN OR Social History Tobacco Use ??? [...] Physical Exam: Preprocedure Vitals Current as of 02/04/22 1502 BP: 122/71 Pulse: 105 Resp: 15 SpO2: 99 Temp: 36.5 ??C (97.7 ??F) Height: 182.9 cm (6') (01/23/22) Weight: 120.2 kg (264 lb 15.9 oz) (02/04/22) BMI: 35.94 IBW: 77.6 kg (171 lb 1.9 oz) Last edited 02/04/22 1139 by Airway Assessment: Mallampati: II TM distance: >3 FB Neck ROM: full Cardiovascular Assessment: Rhythm: regular Rate: normal system normal Pulmonary Assessment: unlabored breathing pulmonary exam normal Dental Assessment: - normal exam Misc Assessment: IV access: Central line Last Filed Perioperative Cognitive Screening None Anesthesia Plan: ASA 3 general, with a(n) intravenous induction 31 y.o. male IVDU admitted with LUE compartment syndrome s/p fasciotomies 01/23/22. Presented after cardiac arrest in setting of fentanyl use, found down. Now returning for serial debridements of LLE and LUE ?? PMHx of HTN, angioedema (unknown trigger) and polysubstance use (cocaine, EtOH and heroin) ?? Anesth Hx: Tolerated GETA on 01/23 and 01/26 for fasciotomy and wound debridement. Now extubated, [id number]% on RA. 01/29/22 debridement - Mac4 G1v 01/31/22 debridement - LMA iGel 4 ?? Anesthetic Plan GA with LMA Standard ASA monitors, IV access Serial consent in chart, pt AAOx3, understands and agrees to anesthesia plan. Region - Other Informed Consent: Anesthetic plan and risks discussed with patient. Use of blood products discussed with patient who. Plan discussed with RN CONCURRENT REVIEW. Anesthesia Screening documented in this encounter Plan of Treatment Upcoming Encounters Date Type Specialty Care Team Description 06/09/2022 Procedure visit Neurology Summer Wiggins MD [facility] DEPT [place], [place] [address] (Wo rk) Scheduled Procedures Name [...] (Ancef) 1 g in dextrose 5% Given 02/04/2022 5:15 PM ED T 2 g 50 mL infusion Intravenous, PRN, Starting on Meredith 02/04/22 at 1715, Until Meredith 02/04/22 at 1937, Administer over 30 Minutes, Anesthesia Intra-op dexmedeTOMIDine (Precedex) (4 mcg/mL) bolus Given 02/04/2022 5:07 PM EDT 12 mcg injection (Anesthsia) Intravenous, PRN, Starting on Meredith 02/04/22 at 1707, Until Meredith 02/04/22 at 1937, Anesthesia Intra-op, Routine ePHEDrine sulfate (5 mg/mL) multi-dose Given 02/04/2022 5:24 PM EDT 10 mg injection Intravenous, PRN, Starting on Meredith 02/04/22 at 1724, Until Meredith 02/04/22 at 1937, Anesthesia Intra-op, Routine HYDROmorphone (Dilaudid) (2 mg/mL) multi-dose Given 02/05/20 6:59 PM EDT 1 mg injection solution Intravenous, PRN, Starting on Meredith 02/04/22 at 1803, Until Meredith 02/04/22 at 1937, Anesthesia Intra-op, Routine Given 02/04/2022 6:03 PM EDT 1 mg lactated ringers infusion New Bag 02/04/2022 5:00 PM EDT Intravenous, CONTINUOUS PRN, Starting on Meredith 02/04/22 at 1700, Until Meredith 02/04/22 at 1937, Anesthesia Intra-op ondansetron (pf) (Zofran) (2 mg/mL) inje ction Given 02/04/2022 5:26 PM EDT 8 mg Intravenous, PRN, Starting on Meredith 02/04/22 at 1726, Until Meredith 02/04/22 at 1937, Anesthesia Intra-op, Routine PHENYLephrine in NS (PF) (JORDIN-SYNEPHRINE) Given 02/04/2022 6:36 PM EDT 240 mcg 0.8 mg/10 mL (80 mcg/mL) multi-dose injection Syrg Intravenous, PRN, Starting on Meredith 02/04/22 at 1726, Until Meredith 02/04/22 at 1937, Anesthesia Intra-op, Routine Given 02/04/2022 6:28 PM EDT 240 mcg Given 02/04/2022 6:22 PM EDT 240 mcg propofoL (Diprivan) 10 mg/mL bolus injection Given 01/2022 5:07 PM EDT 200 mg (Anesthesia) Intravenous, PRN, Starting on Meredith 02/04/22 at 1707, Until Meredith 02/04/22 at 1937, Anesthesia Intra-op documented in this encounter Additional Health Concerns Infection Onset Date Last Indicated Resolved Time C. difficileComment: Eligibe to end 02/01/2022 02/01/2022 03/19/2022 3:02 PM EDT [facility] CP COVID-19Comment: Original COVID-19 test 01/23. Developed symptoms again 02/04/22 so extending isolation to 20 days. 02/04/2022 02/04/2022 02/09/20 1:57 PM EDT Eligible for precaution removal 02/13/22 documented as of this encounter Care Teams Gum Puller Relationship Specialty Start Date End Date None PCP - General 03/10/19 None documented as of this encounter
--- OUTSIDE RECORDS SUMMARY | 2022-04-21 11:35 | XMS_ITS | Encounter Summary ---
:1990 Author Organization [place] [phone] Care Team Providers Name Role Phone None Primary Care Provider Unavailable Reason for Visit Auth/Cert Specialty Diagnoses / Procedures Referred By Contact Refer red To Contact Diagnoses Cardiac arrest intubated med misuse/covid Ximena Robles MD [facility] Procedures ER IPI Admit [facility] [place] [address] Referral ID Status Reason Start Date Expiration Date Visits Requ ested Visits Authorized [id number] 1 1 Encounter Details Date Type Department Care Team Description 02/02/2022 Anesthesia Event Main Operating Room Caden Henning MD [facility] ANESTHESIOLOGY [facility] Lucretia esteban [address] [id number] [phone] Anesthesia Record Procedure Summary Procedure Name Responsible Anesthesia Start Anesthesia Stop Anesthesiologist Time Time DEBRIDEMENT Annalee OLMSTEAD Jonathan T, MD 02/02/22 1341 02/02/22 1543 SUBCU, MUSCLE, BONE UPPER EXTREMITY (WRVU 4.1) (Left Arm Lower) Events Date Time Event Comment 02/02/2022 1341 AN Verify 1341 Start 1341 An Start Data 1351 An Induction 1352 An Intubation 1405 Anesthesia Ready 1419 1439 Procedure Start 1535 Extubation/LMA Out 1536 an stop data 1542 Recovery or ICU Handoff Patient care was transferred to the destination unit staff after review of the patient's medica l history, current anesthetic/surgi moe status and plan, according to the Provider Handoff Checklist. 1543 Stop Name Total fentaNYL 100 mcg Propofol 200 mg PHENYLephrine 480 mcg ceFAZolin 2 g Lactated Ringers 0 mL Agents Name O2 Air N2O Sevoflurane (et) Blood No blood administrations on file. Lines, Drains, and Airways Type Details Placement Removal Incision 01/23/22; 0829; Left, 01/23/22 0829 by lateral; calf; vertical Emma Otero RN Incision 01/23/22; 0841; Left, 01/23/22 0841 by lateral; thigh; Emma Otero RN vertical Incision 01/23/22; 0858; Left; 01/23/22 0858 by arm (volar surface); Emma Otero RN vertical Incision 04/27/13; jaw (inside 04/27/13 0000 by 02/09/22 1508 by mouth approach. ); Jennifer Conway RN Argiro, Anthony Batista RN 02/09/22; 1508 Urethral Catheter 01/23/22; 0035; Q1-2hr 01/23/22 0035 by [place], 02/05/22 1759 by UOP in ICU patient ÁNGEL Wilde, Mich Caal RN without alternative; urethral catheter removed, tubing intact, other (see comments); Per MD; 02/05/22; 1759 CVC 3 Lumen 01/23/22; 0600; 01/23/22 0600 by 02/07/22 1230 b y internal jugular vein, Helena Zapien RN [place], Perri L, RN right; lumen/catheter not patent (new lumen was changed over a wire); cathflo instilled x2, unable to pull from venous cath; 02/07/22; 1230 Incision 01/23/22; 0931; Left 01/23/22 0931 by 03/06/22 1 543 by (dorsal surface); arm; Emma Otero RN [place], Lisa R, RN vertical; 03/06/22; 1543 CVC 3 Lumen 01/23/22; 1625; 01/23/22 1625 by 02/10/22 1330 b y internal jugular vein, Fazal, Tung Espinoza, ÁNGEL Benyazan nTung, RN left; no longer indicated, removed per policy/procedure, site care per policy/procedure, catheter/device intact; 02/10/22; 1330 Incision 01/26/22; 1625; Left; 01/26/22 1625 by 03/06/22 0738 by palm; dressing Toan Robbins RN [place], L chica Espinoza RN xerofrom, abd, aide 4inch aplied on 01/26 at 1730; 03/06/22; 0738 NPWT 01/26/22; 1709; Left, 01/26/22 1709 by 02/04/22 1849 by anterior; thigh; Toan Robbins RN [place] , Wendy Mcclure RN 02/04/22; 1849 NPWT 01/26/22; 1712; Left, 01/26/22 1712 by 02/11/22 1021 by anterior; arm; Toan Robbins RN Binder, Ma rk K, RN 02/11/22; 1021 Supraglottic Mask Ventilation: Easy 02/02/22 1404 by 02/02/22 1535 by (1); LMA Type: air-Q; Jona Pike CRNA Jordan, Jon E, CRNA LMA Size: 3; Inserted by: KATHIA ARREDONDO documented in this encounter Social History Tobacco [...] encounter OR Notes Anesthesia Postprocedure Evaluation - Caden Mantilla MD - 02/02/2022 3:53 PM EDT Department of Anesthesiology Post-procedure Note Patient: Eric Packer Procedure Summary Date: 02/02/22 Room / Location: [facility] MAIN OR Anesthesia Start: 1341 Anesthesia Stop: 1543 Procedures: DEBRIDEMENT SKIN, SUBCU, MUSCLE, BONE UPPER EXTREMITY (WRVU 4.1) (Left Arm Lower) DEBRIDEMENT SKIN, SUBCU, MUSCLE, BONE, LOWER EXTREMITY (WRVU 4.1) (Left Leg Upper) MODIFIER WOUND VAC (N/A ) Diagnosis: (fasciotomies w/ vac) Surgeons: Hina Avitia MD Responsible Provider: Caden Mantilla MD Anesthesia Type: general ASA Status: 3 All Anesthesia Providers: Anesthesiologist: Caden Mantilla MD [employer]: Jona Pike CRNA Vitals Value Taken Time BP 146/80 02/02/22 1545 Temp Pulse 122 02/02/22 1552 Resp 19 02/02/22 1552 SpO2 100 % 02/02/22 1552 Pain Level 10 02/02/22 1545 Vitals shown include unvalidated device data. Patient Location: ICU Level of Consciousness: Awake and Alert Pain Management: Satisfactory Analgesia PONV: None Cardiovascular Status: At Baseline and Hemodynamically Stable Respiratory Status: At Baseline and Room Air Postoperative Fluid Status: Intravascular EUvolemia Possible Anesthetic Complications: NONE apparent at time of evaluation Final Primary Anesthesia Type: General (The anesthetic type performed was the same as planned.) Comments: Anesthesia Preprocedure Evaluation - Caden Mantilla MD - 02/02/2022 1:34 PM EDT Pre-Anesthesia Evaluation for: Eric Packer a 31 y.o. male. Procedure(s): DEBRIDEMENT SKIN, SUBCU, MUSCLE, BONE UPPER EXTREMITY (WRVU 4.1) DEBRIDEMENT SKIN, SUBCU, MUSCLE, BONE, LOWER EXTREMITY (WRVU 4.1) MODIFIER WOUND VAC Patient Active Problem List Diagnosis Date Noted ??? Transaminitis 01/24/2022 ??? Aspiration pneumonia 01/24/2022 ? ? *LUESHAMAR compartment syndrome s/p fasciotimies, I&D 01/23/22, 01/26/22 [...] performed by Tom Valdovinos MD [facility] MAIN OR ? ? PRO DEBRIDEMENT BONE MUSCLE &/FASCIA 20 SQ CM/< Left 01/31/2022 DEBRIDEMENT SKIN, SUBCU, MUSCLE, BONE, LOWER EXTREMITY (WRVU 4.1) performed by Jose Branch MD at [facility] MAIN OR ? ? PRO DEBRIDEMENT BONE MUSCLE &/FASCIA 20 SQ CM/< Left 01/31/2022 DEBRIDEMENT SKIN, SUBCU, MUSCLE, BONE UPPER EXTREMITY (WRVU 4.1) performed by Jose Branch MD[facility] MAIN OR ? ? PRO DEBRIDEMENT MUSCLE AND FASCIA 20 SQ CM/< Left 01/26/2022 DEBRIDEMENT SKIN, SUBCU, MUSCLE, LOWER EXTREMITY (WRVU 2.7) performed by Sigifredo Garcia MD at [facility] MAIN OR ? ? PRO DEBRIDEMENT MUSCLE AND FASCIA 20 SQ CM/< Left 01/26/2022 DEBRIDEMENT SKIN, SUBCU, MUSCLE, UPPER EXTREMITY (WRVU 2.7) performed by Sigifredo Garcia MD at [facility] MAIN OR ??? PRO DECOMP FOREARM, 2 COMPART, W/O DEBRIDE Left 01/23/2022 FASCIOTOMY; FOREARM AND\OR WRIST, FLEXOR & EXTENS. COMP (WRVU 10.79) performed by Sigifredo Garcia MD at [facility] MAIN OR ??? PRO DECOMPRESS ANT/LAT+POST LEG CMPART Left 01/23/2022 FASCIOTOMY, LOWER LEG, ALL COMPARTMENTS (WRVU 7.82) performed by Sigifredo Garcia MD at [facility] MAIN OR ??? PRO INCIS OF HIP/THIGH FASCIA Left 01/23/2022 @FASCIOTOMY,THIGH OR HIP FOR COMPARTMENT SYNDROME (WRVU 12.89) performed by Sigifredo Garcia MD at [facility] MAIN OR ??? PRO OPEN TREAT MANDIBLE CONDYLE FX, COMPL 04/27/2013 OPEN TREATMENT, COMPLEX MANDIBLE FX., MULTI APPROACH, W/ FIXATION performed by Kishore Neil MD at [facility] MAIN OR ??? PRO REVISE MEDIAN N/CARPAL TUNNEL SURG Left 01/23/2022 MEDIAN NERVE DECOMPRESSION (CARPAL TUNNEL RELEASE) (WRVU 4.97) performed by Sigifredo Garcia MD at [facility] MAIN OR ??? PRO SEC CLSR SURG WOUND/DEHSN EXTENSIVE/COMPLICATED Left 01/26/2022 SECONDARY CLOSURE SURGICAL WOUND OR DEHISCENCE, EXTENSIVE OR COMPLICATED, UPPER EXTREMITY (WRVU 12.04) performed by Sigifredo Garcia MD at [facility] MAIN OR Social History Tobacco [...] Physical Exam: Preprocedure Vitals Current as of 02/02/22 1334 BP: 131/75 Pulse: 109 Resp: 15 SpO2: 100 Temp: 36.6 ??C (97.9 ??F) Height: 182.9 cm (6') (01/23/22) Weight: 116.9 kg (257 lb 11.5 oz) (02/02/22) BMI: 34.95 IBW: 77.6 kg (171 lb 1.9 oz) Last edited 02/02/22 1200 by AB Airway Assessment: Mallampati: II TM distance: >3 [...] for fasciotomy and wound debridement. Now extubated, [id number]% on RA. 01/29/22 debridement - Mac4 G1v 01/31/22 debridement - LMA iGel 4 ?? Anesthetic Plan GA with LMA Standard ASA monitors, IV access Serial consent in chart, pt AAOx3, understands and agrees to anesthesia plan. Region - Other Informed Consent: Anesthetic plan and risks discussed with patient. Plan discussed with [employer]. Anesthesia Screening documented in this encounter Plan of Treatment Upcoming Encounters Date Type Specialty Care Team Description 06/09/2022 Procedure visit Neurology Summer Wiggins MD [facility] NEUROLOGY DEPT [place], [place] [address] (Wo rk) Scheduled Procedures Name [...] (Ancef) 1 g in dextrose 5% Given 02/02/2022 2:07 PM ED T 2 g 50 mL infusion Intravenous, PRN, Starting on Tue02/02/22 at 1407, Until Tue02/02/22 at 1552, Administer over 30 Minutes, Anesthesia Intra-op fentaNYL (pf) (50 mcg/mL) multi-dose Given 02/02/2022 3:05 PM ED T 100 mcg injection Intravenous, PRN, Starting on Tue02/02/22 at 1505, Until Tue02/02/22 at 1552, Anesthesia Intra-op, Routine lactated ringers infusion New Bag 02/02/2022 1:47 PM EDT Intravenous, CONTINUOUS PRN, Starting on Tue02/02/22 at 1347, Until Tue02/02/22 at 1552, Anesthesia Intra-op PHENYLephrine in NS (PF) (JORDIN-SYNEPHRINE) Given 02/02/2022 2:35 PM EDT 160 mcg 0.8 mg/10 mL (80 mcg/mL) multi-dose injection Syrg Intravenous, PRN, Starting on Tue02/02/22 at 1402, Until Tue02/02/22 at 1552, Anesthesia Intra-op, Routine Given 02/02/2022 2:10 PM EDT 160 mcg Given 02/02/2022 2:02 PM EDT 160 mcg propofoL (Diprivan) 10 mg/mL bolus injection Given 11/2021 1:51 PM EDT 200 mg (Anesthesia) Intravenous, PRN, Starting on Tue02/02/22 at 1351, Until Tue02/02/22 at 1552, Anesthesia Intra-op documented in this encounter Additional Health Concerns Infection Onset Date Last Indicated Resolved Time COVID-19Comment: Date of symptom onset: Asymptomatic/unknown 01/23/2022 01/23/2022 02/03/2022 8:46 AM EDT Date of positive test: 01/23/22 Precautions may be discontinued by the [facility] care team after the required isolation period (10 or 20 days, depending on the clinical circumstances) when the patient is clinically improving and has be en afebrile for 24 hours without fever reducing medications. Estimated date patient will be eligible for precaution removal: 02/03/22 Please call [phone] with questions. C. difficileComment: Eligibe to end 02/01/2022 02/01/2022 03/19/2022 3:02 PM EDT S&W CP documented as of this encounter Care Teams Continuous Improvement Specialist Relationship Specialty Start Date End Date None PCP - General 03/10/19 None documented as of this encounter
--- OUTSIDE RECORDS SUMMARY | 2022-04-21 11:39 | XMS_ITS | Encounter Summary ---
:1990 Author Organization [place] [id number] Care Team Providers Name Role Phone None Primary Care Provider Unavailable Reason for Visit Auth/Cert Specialty Diagnoses / Procedures Referred By Contact Refer red To Contact Diagnoses Cardiac arrest intubated med misuse/covid Tex Robles MD [facility] Procedures ER IPI Admit [facility] [place] [address] Referral ID Status Reason Start Date Expiration Date Visits Requ ested Visits Authorized [id number] 1 1 Encounter Details Date Type Department Care Team Description 02/02/2022 Surgery Main Operating Room Anahy Starks MD DEBRIDEMENT SKIN, [facility], MUSCLE, BONE [facility] UPPER EXTREMITY ([facility] ORTHOPAEDIC S URGERY 4.1) [place] [id number] [phone] Social History Tobacco Use Types Packs/Day Years [...] Sign Reading Time Taken Comments Blood Pressure 145/70 02/02/2022 5:00 PM EDT Pulse 105 02/02/2022 5:00 PM EDT Temperature 36.7 ??C (98.1 ??F) 02/02/2022 4:00 PM EDT Respiratory Rate 18 02/02/2022 5:00 PM EDT Oxygen Saturation 100% 02/02/2022 5:00 PM EDT Inhaled Oxygen Concentration - - Weight 116.9 kg (257 lb 11.5 oz) 02/02/2022 6:00 AM EDT Height 182.9 cm (6') 01/23/2022 1:16 AM EDT Body Mass Index 22.15 03/03/2022 [...] ??? Mandible fracture HPI: (Per Cristina Hillman, WHITE LEAD FILTERER on 01/23/2022) History provided by patient's father and chart review. The patient was found by his father at 5pm this evening after an unknown period of down-time. The patient was able to speak and reported left armpain; he also reported taking fentanyl. His father called 911. On EMS arrival he was given narcan without change to neuro exam. The transport events to [facility] are not clear, but the [...] was started on levophed and transferred to [facility] for ongoing management. ?? Urine drug screen: +barbiturates, +oxycodone, +opiates Tylenol, salicylates, and ethanol were negative ?? Notable labs: WBC 27.6 Hgb 21.5 Plts 383 ?? K 7.8-> 5.4 CO2 11 BUN 32 Cr 4.37 AG 35 Lactate >10 ?? AST 3588 ALT 990 ?? Trop-I >9000 ?? SARS-CoV-2 RNA detected ? En-route to [facility] he was given boluses of ketamine for [...] escalated. On 02/10 [facility] and transferred back to the floor on [...] Allowed for activity as tolerated. Weaning dilaudid SCREEN TENDER. Seen by PT/OT with rec for rehab. 03/17: Dressings changed at bedside. Continue SCREEN TENDER weaning. Low phos, high protein, high calorie diet.IV vanc and meropenem started (-03/19) and PO vanc (- 03/26). Emesis x1. 03/18: SCREEN TENDER dc'd. BIT consulted for suboxone. Bedside dressing change. 03/19: To be dc'd to [facility] with bed availability. High UOP w/ [...] who have questions please contact the health wound care center consultant that requested your imaging first. Head wo Contrast (Generic) (Exam End: 01/23/2022 3:58 AM) Impression Globi pallidi infarcts. Mild cerebral edema. Thank you for letting us participate in the care of this patient. If you are a health care provider and have any questions regarding this report, please contact the number below. For patients who have questions please contact the health wound care center consultant that requested your imaging first. Abdomen 1 [...] who have questions please contact the health wound care center consultant that requested your imaging first. Lower Extremity [...] who have questions please contact the health wound care center consultant that requested your imaging first. Chest wo [...] who have questions please contact the health wound care center consultant that requested your imaging first. Upper Extremity [...] who have questions please contact the health wound care center consultant that requested your imaging first. Forearm Left [...] who have questions please contact the health wound care center consultant that requested your imaging first. Chest One [...] who have questions please contact the health wound care center consultant that requested your imaging first. Femur 2 views Left (Generic) (Exam End: 01/23/2022 2:04 PM) Impression No significant osseous finding. Thank you for letting us participate in the care of this patient. If you are a health care provider and have any questions regarding this report, please contact the number below. For patients who have questions please contact the health wound care center consultant that requested your imaging first. Tibia Fibula Left (Generic) (Exam End: 01/23/2022 2:04 PM) Impression No bony abnormality seen. Thank you for letting us participate in the care of this patient. If you are a health care provider and have any questions regarding this report, please contact the number below. For patients who have questions please contact the health wound care center consultant that requested your imaging first. Chest One [...] who have questions please contact the health wound care center consultant that requested your imaging first. Brain wo [...] who have questions please contact the health wound care center consultant that requested your imaging first. Angiogram [place] (Exam End: 01/24/2022 11:32 PM) Impression Normal appearance of the large and medium size arteries of the head and neck Thank you for letting us participate in the care of this patient. If you are a health care provider and have any questions regarding this report, please contact the number below. For patients who have questions please contact the health wound care center consultant that requested your imaging first. Angiogram Carotids [...] who have questions please contact the health wound care center consultant that requested your imaging first. Chest Abdomen [...] who have questions please contact the health wound care center consultant that requested your imaging first. Arteriogram Lower [...] 2. Flat for 2 hours, following Right JIGMAKER Mynx closure deployment 3. Monitor for Right [...] a permanent image was stored. A 5 Scottish sheath was placed. Vessel accessed: Right common femoral artery Access technique: Micropuncture set with 21 gauge needle Left pelvic angiography The left pelvic arterial system was catheterized using a 150 cm 0.035 3J guidewire, 5 Scottish Berenstein catheter, 3 Scottish renegade STC microcatheter and wire. Vessel catheterized: [...] who have questions please contact the health wound care center consultant that requested your imaging first. Chest One [...] who have questions please contact the health wound care center consultant that requested your imaging first. Brain wo [...] who have questions please contact the health wound care center consultant that requested your imaging first. Abdomen 1 view (Generic) (Exam End: 02/13/2022 8:10 AM) Impression No obstruction. No perforation. Thank you for letting us participate in the care of this patient. If you are a health care provider and have any questions regarding this report, please contact the number below. For patients who have questions please contact the health wound care center consultant that requested your imaging first. Abdomen & [...] who have questions please contact the health wound care center consultant that requested your imaging first. Femur w [...] who have questions please contact the health wound care center consultant that requested your imaging first. PICC Placement [...] who have questions please contact the health wound care center consultant that requested your imaging first. Discharge Exam: Last value Range last 12 hrs Temperature Temp: 36.4 ??C (97.5 ??F) Temp: -- Heart Rate Heart Rate: (!) 118 Heart Rate: [118] Blood Pressure BP: 154/87 BP: (154)/(87) Respiratory Rate Resp: 16 Resp: [16] SpO2 SpO2: 97 % SpO2: [97 %] I/Os: I/O last 3 completed shifts: In: 5040 [P.O.:5040] Out: 08041 [Urine:96944] I/O this shift: In: - Out: 500 [...] Date: 10/22/22 Question Response Notes Preferred location? [facility] Clinics [106] Indication for study/signs & symptoms [...] 1. You will have follow-up appointments at [facility] as indicated in the ???Future Appointments and [...] on the next business day. Please call [phone] if you do not hear from us by that time, as your timely follow-up is very important to us. Your care was managed by the Trauma and Acute Care Surgery Team at [facility]. If you have any questions or concerns, please feel free to contact us. Provider Contact Information: General Surgery: [facility] (after business hours): CC: Compartment syndrome Primary Care Physician: None General Instructions Substance Use Treatment, Harm-Reduction, and Relapse Prevention Resources Residential Treatment: [facility] [address] [place], [place] [id number] [address] [address] Intensive Outpatient Programs: Quitting Time [facility] [address] [address] Health Care and Rehabilitative Services [address] [place] [address] [phone] Individual Counseling: [facility] [address] [address] ALEX Whitlock [address] [place] [address] ----and---- [address] [place] [address] [facility] [address], [address] [place], [place] [phone] Offers EMDR Therapy You may also search www.psychologyPlutus Softwareday.com or Textic for therapists in your area. EMDR Therapy [...] completed in fewer sessions than other psychotherapies. www.emdria.org/fmebe-plpw-rzettcq/ Medication Assisted Therapy: [facility] [address] [place], [place] [id number] [address] [id number] [facility] [address] [place] [address] [place] [address] [facility] [address] [place] [address] [place] [address] Peer Support Groups Alcoholics Anonymous (AA) [place]: , www.nhaa.net Narcotics Anonymous (NA) [place]: , www.gmana.org Community Peer Support Center Journey to Recovery [address] [place], [place] Online AA and NA Meetings AA, NA, Refuge Recovery, SMART Recovery www.FrenchWeb.FoKo AA Video Meetings www.aa-intergroup.org/directory_audio-video.php AA Text Chat Meetings www.aa.intergroup.org/directory.php NA Video Meetings www.virtual-na.org/meetings NA Text Chat Meetings Www.neveraloneclub.org SMART Recovery Meetings via Zoom 5:00-6:00pm, free and open to all To join Zoom meetin. Visit www.broadbandchoices 2. Click on calendar on top of toolbar 3. Find the correct meeting date and time 4. Click the zoom link and enter password provided Additional Substance Use Treatment Resources Www.vtaddictionservices.org www.health[place]mont.gov/alcohol-drugs www..org/ (Search for Substance Use) www.Sensible Solutions [place]/ Www.rethinkingdrinking.niaaa.nih.gov/ www.[facility].gov/lrzkerjped-midcwmfv-kyzjrudxc/vupahoowduza-elcrvfv-mknq/treatment -practitioner-provider enrollment specialist Mental Health Crisis [place] [facility] Crisis Line: Dial 988 www.[facility].gov/find-help/988 Harm-Reduction Resources Mobile operations. For more information about receiving supplies: including syringe exchange, fentanyl test strips, and naloxone, or to schedule an appointment: [place] clients call and leave a message for Graciela (ext. 105) or Doc Liu (ext. 104). [place] clients call to speak with Doc Choi [...] is being approved. Online Stress Reduction Resources www.Limundo.FoKo/videos-features/videos/ckutaoyrc-cgfxqkoyj-4-7-8-breath/ www.Transpond.org/2013/qjnrvuomq-efjhlsqtp-oxjeegm-moment/ www.headspace.FoKo/ www.mindful.org/ www.freeMENA SOCIALdfSjapperness.org/ Employment Agency [employer] [address] [place] [address] [email or web address] Providing an opportunity for successful employment and recovery by empowering individuals to manage challenges because of substance use addiction and past convictions. CC: Compartment Syndrome Signed: Vance Curiel MD PGY1 Acute Care Surgery Team Pager [phone] 03/23/2022 4:18 PM I saw and evaluated [...] this encounter Discharge Instructions Discharge InstructionsMiguel Prather, WHITE LEAD FILTERER - 02/12/2022 3:40 PM EDT Substance Use Treatment, Harm-Reduction, and Relapse Prevention Resources Residential Treatment: [facility] [address] [place], [place] [id number] [facility] [address] [place], [place] [address] Intensive Outpatient Programs: [facility] [address] [place], [place] [phone] Health Care and Rehabilitative Services [address] [place] [phone] Individual Counseling: [facility] [address] [place], [place] [address] ALEX Whitlock [address] [place] [address] ----and---- [address], [place] [address] [facility] [address] [place], [place] [phone] Offers EMDR Therapy You may also search www.psychologytoday.com or Textic for therapists in your area. EMDR Therapy [...] completed in fewer sessions than other psychotherapies. www.emdria.org/pbhun-yaoo-fkphmnf/ Medication Assisted Therapy: [facility] [address] [place], [place] [address] [address] [address] [facility] [address] [place] [address] [place] [address] [facility] [address] [place] [address] [place] [address] Peer Support Groups Alcoholics Anonymous (AA) [place]: , www.nhaa.net Narcotics Anonymous (NA) [place]: , www.gmana.org Community Peer Support Center Journey to Recovery [address] [place], [place] Online AA and NA Meetings AA, NA, Refuge Recovery, SMART Recovery www.Trovali AA Video Meetings www.aaNew Zealand Free Classifiedsintergroup.org/directory_audio-video.php AA Text Chat Meetings www.aaHip Innovation Technologyintergroup.org/directory.php NA Video Meetings www.OnStatena.org/meetings NA Text Chat Meetings Www.TechnoSpinaloneclub.org SMART Recovery Meetings via Zoom 5:00-6:00pm, free and open to all To join Zoom meeting: Visit www.broadbandchoices Click on calendar on top of toolbar Find the correct meeting date and time Click the zoom link and enter password provided Additional Substance Use Treatment Resources Www.vtaddictionservices.org www.health[place].gov/alcohol-drugs www.[place] [address].org/ (Search for Substance Use) www.Playmysong.FoKo/ Www.rethinkingdrinking.niaaa.nih.gov/ www.samhsa.gov/dxtnfctxlt-xgjxqkkw-tnhmqxumv/sjishkhddpmn-pknglcf-lqpw/treatment -practitioner-provider enrollment specialist Mental Health Crisis [facility] Crisis Line: Dial 988 www.samhsa.gov/find-help/988 Harm-Reduction Resources Mobile Polatis. For more information about receiving supplies: including syringe exchange, fentanyl test strips, and naloxone, or to schedule an appointment: [place] clients call and leave a message for Graciela (ext. 105) or Doc Liu (ext. 104). [place] clients call to speak with Doc F. [...] is being approved. Online Stress Reduction Resources www.mSpoke/videos-features/videos/uzzwaoigv-gizewgwkz-7-7-8-breath/ www.Transpond.org/2013/ecjxzbhfz-aeazuptkw-ozszvnx-moment/ www.RotaryView/ www.mindful.org/ www.GridAnts.org/ Employment Agency [employer] [address] [place] [address] secondHIT Application [email or web address] Providing an opportunity for successful employment and [...] 1. You will have follow-up appointments at [facility] as indicated in the ???Future Appointments and [...] appointment on the next day. Please call [phone] if you do not hear from us by that time, as your timely follow-up is very important to us. Your care was managed by the Trauma and Acute Care Surgery Team at [facility]. If you have any questions or concerns, please feel free to contact us. Provider Contact Information: General Surgery: [facility] (after business hours): CC: Compartment syndrome Primary Care Physician: None AttachmentsThe following attachments cannot be sent through Care Everywhere. Compartment Syndrome (Dutch)documented in this encounter Medications at Time of [...] 03/23/2022 3:13 PM EDT [facility] Report given to ÁNGEL Roland. Ambulance arrived 1430 to transport pt. Piccremains in place. Hernán Hobbs - 03/23/2022 2:11 PM EDT Office of Care Management/Door Core Assembler Patient Name: Alix Holland : 1990 Patient has been offered an Acute IRF bed at [facility]. [facility] arranged for a BLS transport at 1430. Ambulance will need: Medicare ambulance form completed and signed (MD or Career Development Coordinator/Teacher RN/CAUSTIC ROOM OPERATOR) Copy of patient demographics [place] Out of Hospital DNR/DNI order, if active MD to MD report to Dr. Rosa at [phone]. Please call Nursing Report to [phone], ask for artificial flowers dyer. Info to accompany patient: Copies of Medication Administration Records and IV sheets for past 10 days. Plan: Door Core Assembler will be available to the patient and Career Development Coordinator/Teacher-RN and/or Patent Counsel for further assistance. Patient will be discharged to: [place] [address] Hernán Hobbs Door Core Assembler Sivakumar Trevino PTA - 03/23/2022 1:25 PM [...] managment/propulsion training. Total Minutes, Physical Therapy: 55 ([id number]) Billing Code: TESx2, TEFx2 Sivakumar TrevinoSVETLANA Pager: [phone] Physical Therapy Inpatient Rehabilitation Department Lizzy Love RN - 03/23/2022 12:41 PM EDT Physician Certification Statement for Non-Emergency Ambulance Services Section I - General Information Alix Holland 1990 Medicaid Number:[id number] Transport Date: 03/23/2022 (PCS is valid for round trips on this date and for all repetitive trips in the 60-day range as notedbelow.) Origin: [facility] Destination: [facility] Acute Rehabilitation and Sub-Acute (Swing) Rehab Levels of Care [address] [place] [address] Is the patient's stay covered under Medicare [...] van (i.e. seated during transport, without medical claims analyst or monitoring?): No 4) In addition to [...] by the Centers of Medicare and MedicaidServices ([facility]) to support the determination of medical [...] pt need to f-u with surgeon or KIDS ACTIVITIES COACH (please indicate reason if attending provider): Attending [...] and left superior gluteal artery via R JIGMAKER access. Reason for intervention: Follow up Nutrition [...] 02/05/2022 TRIG 359 01/26/2022 CRP <3.0 04/26/2021 [id number] 535 02/03/2022 25OHVITD 12 (L) 02/19/2022 SFOLATE [...] encounter: 78.2 kg (172 lb 8 oz). [place] Body Weight: 80.9kg- [place] Usual Body Weight: [...] Based on IBW 80.9kg Estimated needs: Calories: 2030-2037 (25-30kcal/kg) Protein: 120 grams (1.5 g/kg IBW) Nutrition Focused Physical Exam (NFPE): Performed on 03/01/22. Subcutaneous fat loss at Orbital region: Moderate Upper arm region (triceps/biceps): Mild Thoracic and lumbar region (ribs, lower back and maxillary line): Not assessed Lean muscle loss to Zoroastrian region (temporalis muscle): Moderate Clavicle bone region [...] while inpatient THANKS KAYLAH JANG RD Pager #:[phone] Josh Peck RN - 03/22/2022 6:30 PM [...] Gomez MD PGY1 Acute Care Surgery pager [phone] I saw and evaluated the patient with [...] Hidalgo MD PGY5 Acute Care Surgery pager [phone] Attending Addendum I have seen and examined [...] Hidalgo MD PGY5 Acute Care Surgery pager [phone] Attending Addendum I have seen and examined [...] 03/19/2022 4:11 PM EDT Per request this policy writer sales updated patient on inpatient rehabilitation facility search, informed that [facility] is following the referral, however at this time does not have acute rehab bed availability till 03/22/2022. Alix would like referral to [facility] which is closed to home. Discussed that [facility] is SNF with less therapy hours available. Patient verbalized understanding and in would like referral placed to: [address] [address] [place] please submit referral with all supporting [...] Started Suboxone per Psych recs. - Discontinued SCREEN TENDER Dilaudid yesterday (03/18). - Discontinued IV Vanc [...] is ongoing. Possibly will be discharged to [facility] but there are no beds currently. He may need a COVID test prior to discharge per facility request; otherwise, monitor with weekly CBCs and BMPs. He had his dressings changed at the bedside yesterday with Dr. Chatterjee who used Aquafor instead of silver gel. SCREEN TENDER (dilaudid) was discontinued yesterday (03/18). He completed [...] PO 1g q8hrs (starts03/19, ends 03/26), Endo: JAVNO MSK: - s/p multiple fasciotomies, OR debridements, [...] status; PT/OT consulted: recommend acute rehab - Incident Response Analyst sent requests to 2 locations with ongoing [...] plan to change again today. - D/C SCREEN TENDER (Dilaudid) today. - On IV Vanc and [...] is ongoing. Possibly will be discharged to [facility] but there are no beds currently. He had his dressings changed at the bedside yesterday with Dr. Chatterjee who used bacitracin; completed another dressing change today with Aquafor instead of silver gel. SCREEN TENDER (dilaudid) was discontinued today. Diet remains as high calorie/protein with the addition of TUMS at meals. He will complete a course of IV Vancomycin and Meropenem (ends 03/19) before switching to PO Vancomycin (ends 03/26). Plan: Neuro: #Pain - [place] PO Tylenol 1000 mg q8h - D/c dilaudid SCREEN TENDER - PO Oxycodone 10-15 PRN Q4 #Polysubstance [...] status; PT/OT consulted: recommend acute rehab - Incident Response Analyst sent requests to 2 locations with ongoing [...] 03/26) as recommended by ID - Weaning SCREEN TENDER (dilaudid) with the plan to d/c it [...] managment/propulsion training. Total Minutes, Physical Therapy: 60 ([phone]) Billing Code: TEFx2, GT Sivakumar Trevino, MANUFACTURING PLANNER Pager: [phone] Physical Therapy Inpatient Rehabilitation Department Jeanette Chatterjee [...] 03/26) as recommended by ID - Weaning SCREEN TENDER (barbara) with the plan to d/c it [...] another dressing change tomorrow with silver gel. SCREEN TENDER will continue to be weaned. Diet was changed from low phosphorus to high calorie/protein with the addition of TUMS at meals. Additionally, his antibiotics were restarted today; he will complete a course of IV Vancomycin and Meropenem (ends 03/19) before switching to PO Vancomycin (ends 03/26). Plan: Neuro: #Pain - [place] PO Tylenol 1000 mg q8h - dilaudid SCREEN TENDER, weaning - PO Oxycodone 10-15 PRN Q4 [...] Dispo: Floor status; PT/OT consulted, recommend acute rehab--Incident Response Analyst sent requests to 2 locations. Code Status: [...] - Now off of antibiotics - Weaning SCREEN TENDER (dilaudid) Social History: Home setup: Pt lives [...] had pt perform gastroc stretch with leg social services director MMT L Gastroc 2-/5 Balance: Seated Static: [...] Pt limited in distance due to his SCREEN TENDER pump, but once DCd pt could likely [...] managment/propulsion training. Total Minutes, Physical Therapy: 40 ([phone]) Billing Code: DEACON SAMUELSSVETLANA Pager: [phone] Physical Therapy Inpatient Rehabilitation Department Jairo Kirkland [...] 431 msec Imaging: External records in - [facility]: Yes - CareEverywhere: No - Paper records: [...] Felix MD Infectious Diseases Fellow- PGY4 Pager: [phone] 03/16/2022 2:15 PM ID Attending I have [...] LUE ?? Social History: Patient lives in [place], [place] with his dad. Home Setup: 2 [address], 2 level home, bedroom on 1st level, bathroom available on 1st level, has a tub shower downstairs. DME: none Baseline ADL/Mobility: Pt reports he was independent w/ ADL's and IADL's, had worked for a [employer]. He enjoys hunting and fishing. He reports he likes Psydex music ?? Interval History: Pt to OR last week for LUE and LLE grafts. Per MD Note 03/16 - Now off of bedrest - Dressing change in the OR yesterday - Now off of antibiotics - Weaning SCREEN TENDER (dilaudid) Precautions/Special Considerations: SOAP/WATER; fall risk, LUE/LLE WBAT, L forearm and L thigh grafts, SCREEN TENDER S: I need some help with that [...] 2-4 times/wk Total Minutes, Occupational Therapy: 30 ([facility] x2 ([phone]) Pager: [phone] PEG [facility] Occupational Therapy Rehabilitation Department Kaylah [...] and left superior gluteal artery via R JIGMAKER access. Reason for intervention: Follow up Nutrition Recommendations: Regular diet ; enc high protein high calorie Given tendency toward intake < est needs, suggest omit low phosphorus restriction and give TUMs w/ meals Limit NPO to periods to only when necessary to avoid missing nutrition windows Encourage pt to continue double portions protein and milk with meals Discussed above w/ E. Sergio HARTLEY #[id number] Active Orders Diet High Protein - High [...] 02/05/2022 TRIG 359 01/26/2022 CRP <3.0 04/26/2021 [id number] 535 02/03/2022 25OHVITD 12 (L) 02/19/2022 SFOLATE [...] encounter: 78.9 kg (173 lb 15.1 oz). [place] Body Weight: 80.9kg- [place] Usual Body Weight: [...] Based on IBW 80.9kg Estimated needs: Calories: 0809-2838 (25-30kcal/kg) Protein: 120 grams (1.5 g/kg IBW) Nutrition Focused Physical Exam (NFPE): Performed on 03/01/22. Subcutaneous fat loss at Orbital region: Moderate Upper arm region (triceps/biceps): Mild Thoracic and lumbar region (ribs, lower back and maxillary line): Not assessed Lean muscle loss to Zoroastrian region (temporalis muscle): Moderate Clavicle bone region [...] while inpatient THANKS KAYLAH JANG RD Pager #:[phone] Jeanette Chatterjee MD - 03/16/2022 5:38 AM [...] - Now off of antibiotics - Weaning SCREEN TENDER (dilaudid) Objective Vitals: Last Value Range last [...] Their notes will be sent by the Incident Response Analyst to the rehab facilities. Will likely have dressing change tomorrow. Currently weaning his dilaudid SCREEN TENDER. Plan: Neuro: #Pain - [place] PO Tylenol 1000 mg q8h - dilaudid SCREEN TENDER, weaning - PO Oxycodone 10-15 PRN Q4 [...] to toe assessment remains unchanged from previous home assessment nurse. Patient states pain is 9/10, PRN medication given and pt repositioned. Dilaudid SCREEN TENDER infusing with SCREEN TENDER doseonly. No complaints of chest pain/SOB. No [...] recommendations below - Pain remains well-controlled with SCREEN TENDER and decreasing - Tolerating High calorie, high [...] bedrest. Plan: Neuro: [place] PO Tylenol, dilaudid SCREEN TENDER, PO Oxycodone 10-15 PRN Q4, Zofran PRN, [...] Will f/u as appropriate. Thank you. Sixto Mednia MD - 03/15/2022 1:37 PM EDT Surgery [...] Oxycodone given. Takes sips of water easily. SCREEN TENDER re-started per order. Pt. Self dosing. Has [...] PICC line placed 03/03/2022 External Record in [facility]: Yes Care Everywhere:No Paper Record: No Assessment/Plan: [...] Felix MD Infectious Diseases Fellow- PGY4 Pager: [phone] 03/15/2022 8:55 AM I have discussed case with Dr. Jairo Kirkland This note was created using PlanZap voice recognition software. ID Attending I have [...] Reporting 8 to 10/10 pain, using dilaudid SCREEN TENDER and PRN oxygen given x2. No BM [...] recommendations below - Pain remains well-controlled with SCREEN TENDER and decreasing - Tolerating High calorie, high [...] that time. Plan: Neuro: [place] PO Tylenol, SCREEN TENDER, PO Oxycodone 10-15 PRN Q4, Zofran PRN [...] kerlix, coban - Pain remains well-controlled with SCREEN TENDER - Tolerating High calorie, high protein diet [...] 1g Q8H. Plan: Neuro: [place] PO Tylenol, SCREEN TENDER PO Oxycodone 10-15 PRN Q4, Zofran PRN [...] 4 Acute Care Surgery 03/13/22 Team Pager [phone] A medical student assisted me in the [...] 10:41 AM EDT Patient came back to [facility] from PACU via bed in stable condition. Amy Pineda RN - 03/13/2022 10:31 AM EDT 0931 Pt arrived to PACU lethargic, oral airway in place. Connected to monitors, alarms set and reviewed. VSS. LUE/LLE dressings CDI, only to be changed by MD. RLE dressings with dried drainage. 0945 Pt more awake, c/p pain, utilizizing SCREEN TENDER. 1000 Tolerating sips of lenora opal. Report given to ÁNGEL Deleon on [facility] Adrienne Tejada RN - 03/13/2022 7:52 AM [...] suction - Pain remains well controlled with SCREEN TENDER - Tolerating High calorie, high protein diet [...] Peterson Acute Care Surgery 03/12/22 Team Pager [phone] A medical student assisted me in the [...] out of bed. JASWINDER CHUNG, SVETLANA Pager: [phone] Physical Therapy Inpatient Rehabilitation Department Adrienne Tejada [...] any alarming from wound vac, immediately page [phone]. S/p 3 days of IV iron, now [...] 03/14 for OR. If any alarming, page [phone]. - s/p multiple fasciotomies, OR debridements, and [...] VAC particularly not holding suction please page [phone] immediately given that thiswill affect skin graft take -High-protein high-calorie low Phos diet -Plan to return to the operating room on Tuesday for VAC removal, bedrest until then -SCREEN TENDER for pain control will wean as able Veto Hidalgo MD PGY 5 Acute care surgery pager [phone] Marylou Retana RN - 03/10/2022 7:12 PM EDT Patient arrived back to unit from PACU @ approximately 1630. VSS on RA, drowsy but arouses to voice.SCREEN TENDER in place, pt continues to report 10/10 [...] 4 03/10/22 Acute Care Surgery Team Pager [phone] A medical student assisted me in the documentation of this note. I personally saw and evaluated the patient, reviewed all applicable documented studies, and diagnostic images. The assessment and plan were formulated with the care team at the time of the visit and in my presence. I have made edits to the above note and agree with the details above. aNncy Chahal MD Resident, General Surgery 03/10/22 Marylou [...] LUE ?? Social History: Patient lives in [place], [place] with his dad. Home Setup: [address] [facility], 2 level home, bedroom on 1st level, bathroom available on 1st level, has a tub shower downstairs. DME: none Baseline ADL/Mobility: Pt reports he was independent w/ ADL's and IADL's, had worked for a [employer]. He enjoys hunting and fishing. He reports [...] Pt demonstrated ability to doff socks with coning machine operator and don socks with sock aid ?? [...] 2-4 times/wk Total Minutes, Occupational Therapy: 32 ([facility] x2 ([phone]) Pager: [phone] [facility] Occupational Therapy Rehabilitation Department Tanesha [...] Denilson Muniz - 03/08/2022 3:14 PM EDT Sheriff Detective Encounter Note Patient Name: Alix Holland : [id number] MR#: [id number] Admit Date: 01/23/2022 12:29 AM Hospital Day 44 days Narrative:Visited to introduce and assess acceptance of Sheriff Detective services.Patient was not available and I will [...] IADLs, drives, used to work for a [employer] but is not currently working. Enjoys [...] Therapy: 40 TE-F x 3 JASWINDER CHUNG, MANUFACTURING PLANNER 03/08/2022 Pager: [phone] Physical Therapy Inpatient Rehabilitation Department Lizzy Miranda, [...] and left superior gluteal artery via R JIGMAKER access. Reason for intervention: Follow up Nutrition [...] 02/05/2022 TRIG 359 01/26/2022 CRP <3.0 04/26/2021 [id number] 535 02/03/2022 25OHVITD 12 (L) 02/19/2022 SFOLATE [...] encounter: 77.4 kg (170 lb 11.2 oz). [place] Body Weight: 80.9kg- [place] Usual Body Weight: [...] Based on IBW 80.9kg Estimated needs: Calories: 3374-2956 (25-30kcal/kg) Protein: 120 grams (1.5 g/kg UBW) Nutrition Focused Physical Exam (NFPE): Performed on 03/01/22. Subcutaneous fat loss at Orbital region: Moderate Upper arm region (triceps/biceps): Mild Thoracic and lumbar region (ribs, lower back and maxillary line): Not assessed Lean muscle loss to Zoroastrian region (temporalis muscle): Moderate Clavicle bone region [...] while inpatient THANKS Lizzy Miranda RD Pager #:[phone] Nancy Chahal MD - 03/08/2022 2:35 PM [...] LLE wound vac change was performed at [facility]. Healthy granulation tissue was found in [...] WOUND VAC NOTE Alix Holland 31 y.o./male [id number] DATE: 03/07/22 Admit Date: 01/23/2022 12:29 AM [...] Therapy: 30 TE-F x 2 JASWINDER CHUNG, MANUFACTURING PLANNER 03/05/2022 Pager: [phone] Physical Therapy Inpatient Rehabilitation Department Tanesha Patel [...] LUE ?? Social History: Patient lives in [place], [place] with his dad. Home Setup: 2 [address], 2 level home, bedroom on 1st level, bathroom available on 1st level, has a tub shower downstairs. DME: none Baseline ADL/Mobility: Pt reports he was independent w/ ADL's and IADL's, had worked for a [employer]. He enjoys hunting and fishing. He reports he likes Psy[employer] music ?? Interval History: OR yesterday for [...] 2-4 times/wk Total Minutes, Occupational Therapy: 35 ([facility] x2 ([phone]) Pager: [phone] [facility] Occupational Therapy Rehabilitation Department Jayme [...] IADLs, drives, used to work for a [employer] company but is not currently working. Enjoys [...] Therapy: 30 TE-F x 2 JASWINDER CHUNG, MANUFACTURING PLANNER 03/03/2022 Pager: [phone] Physical Therapy Inpatient Rehabilitation Department Jayme Armstrong [...] LUE ?? Social History: Patient lives in [place], [place] with his dad. Home Setup: [address], 2 level home, bedroom on 1st level, bathroom available on 1st level, has a tub shower downstairs. DME: none Baseline ADL/Mobility: Pt reports he was independent w/ ADL's and IADL's, had worked for a [employer]. He enjoys hunting and fishing. He reports [...] 2-4 times/wk Total Minutes, Occupational Therapy: 35 ([facility] x2 ([phone]) Pager: [phone] [facility] Occupational Therapy Rehabilitation Department Madhavi [...] Given lenora opal and water at bedside, Watkins sandwich requested. LUE wound VAC dressing intact [...] Denilson Muniz - 03/01/2022 3:38 PM EDT [facility] Encounter Note Patient Name: Alix Holland : [id number] MR#: [id number] Admit Date: 01/23/2022 12:29 AM Hospital Day [...] and left superior gluteal artery via R JIGMAKER access. Reason for intervention: Follow up Nutrition [...] 02/05/2022 TRIG 359 01/26/2022 CRP <3.0 04/26/2021 [id number] 535 02/03/2022 25OHVITD 12 (L) 02/19/2022 SFOLATE [...] encounter: 82.1 kg (180 lb 14.4 oz). [place] Body Weight: 80.9kg- [place] Usual Body Weight: [...] Based on IBW 80.9kg Estimated needs: Calories: 2490-8900 (25-30kcal/kg) Protein: 120 grams (1.5 g/kg UBW) - pt on iHD w/ wound vacs Nutrition Focused Physical Exam (NFPE): Performed on 03/01/22. Subcutaneous fat loss at Orbital region: Moderate Upper arm region (triceps/biceps): Mild Thoracic and lumbar region (ribs, lower back and maxillary line): Not assessed Lean muscle loss to Zoroastrian region (temporalis muscle): Moderate Clavicle bone region [...] inpatient Thank you, KAYLAH JANG RD Pager #:[phone] Josh Peck RN - 03/01/2022 2:00 AM [...] PM EDT Hypertension/Nephrology Inpatient Follow-up Alix Holland [id number] 1990 ID: 31 y.o. old male seen [...] changed vitamin D3 400 U -> D2 05604 weekly for six weeks given his severe deficiency. Would recommend rechecking a level after this (likely after discharge). - Continue daily MV - Avoid NSAIDs, contrast, and other nephrotoxic agents as able - Agree with iron studies on 03/01 as he will likely need replacement This case was discussed with staff fisher diver net Dr. Thomas. We will sign off at this time. Please do not hesitate to contact me with questions or concerns: Ph [phone] Pg [phone]. Dominic Almanza MD Nephrology Fellow, PGY-4 Associated [...] protein intake. Dania Thomas MD Nephrology Pager: [phone] Sixto Medina MD - 02/28/2022 10:28 AM [...] requires dialysis; they recommended starting weekly EPO 04161 units, given 02/25. PIV access unable to [...] PM EDT Hypertension/Nephrology Inpatient Follow-up Alix Holland [id number] 1990 ID: 31 y.o. old male seen [...] replacement This case was discussed with staff fisher diver net Dr. Thomas. We will follow peripherally at this time.Please do not hesitate to contact me with questions or concerns: Ph [phone] Pg [phone]. Dominic Almanza MD Nephrology Fellow, PGY-4 Associated attestation - Dania Thomas MD - 02/27/2022 5:33 PM EDT The patient was seen and examined with the nephrology fellow. Please see the nephrology fellow's note from today for details. I have reviewed the fellow's note and agree with the exam, and assessment and plan. Dania Thomas MD Nephrology Pager: [phone] Sixto Medina MD - 02/26/2022 3:14 PM [...] 2.39 (2.94), Nephrology following; Gave weekly EPO 02506 yesterday, start IV iron after completing Vancomycin [...] requires dialysis; they recommended starting weekly EPO 79613 units, given yesterday. Will obtain PIV access [...] Jareth Nino MD, MPH Section of Nephrology #[id number] Dania Cotter RN - 02/26/2022 10:02 AM EDT 0950 Patient admitted to PACU. Hand off received from Tamika WEST[place], [facility] care assumed. Assessments as documented. Monitors on, alarms audible and individualized to patient. 1015 Hand off to ÁNGEL Ontiveros [facility] Glenna Bejarano OT - 02/26/2022 8:44 AM [...] Voiding adequate amounts in urinal. Patient worked w/[employer] and stood at bedside. Lift used to [...] reviewed with no apparent indication for urgent CALENDERING MACHINE OPERATOR. Access: Can remove dialysis catheter. We are [...] Jareth Nino MD, MPH Section of Nephrology #[id number] Jaswinder Chung [facility] - 02/25/2022 12:05 PM EDT Physical Therapy [...] IADLs, drives, used to work for a [employer] company but is not currently working. Enjoys [...] x 2 JASWINDER CHUNG, SVETLANA 02/25/2022 Pager: [phone] Physical Therapy Inpatient Rehabilitation Department Sixto Medina [...] 28 (L) >=60 mL/min/1.73 m?? Vidhya Peñaloza #[phone] Associated attestation - Jareth Nino MD - [...] LUE ?? Social History: Patient lives in [place], [place] with his dad. Home Setup: [address], 2 level home, bedroom on 1st level, bathroom available on 1st level, has a tub shower downstairs. DME: none Baseline ADL/Mobility: Pt reports he was independent w/ ADL's and IADL's, had worked for a [employer]. He enjoys hunting and fishing. He reports he likes Psy[employer] music ?? Interval History: - No acute [...] gave pt built up utensils for better terminal superintendent on utensils due to limited LUE strength [...] Occupational Therapy: 32 (1 SC 1 TAF ([phone])) Pager: [phone] Natalia Fong OT Occupational Therapy Rehabilitation Department *POC reviewed between HEAD OF TRAINING AND DEVELOPMENT/OTR. Patient is now activity as tolerated with BUE/LE WBAT. See updated goals below. Dai Gerald OTR/L Pager [phone] Goals updated & extended to 03/08/22: -Patient [...] and left superior gluteal artery via R JIGMAKER access. Reason for intervention: Follow up Nutrition [...] 02/05/2022 TRIG 359 01/26/2022 CRP <3.0 04/26/2021 [id number] 535 02/03/2022 SFOLATE 3.9 (L) 02/03/2022 IRON [...] encounter: 104.3 kg (229 lb 15 oz). [place] Body Weight: 80.9kg- [place] Usual Body Weight: [...] Based on IBW 80.9kg Estimated needs: Calories: 9284-3176 (25-30kcal/kg) Protein: 120 grams (1.5 g/kg UBW) [...] inpatient Thank you, Charlotte Castañeda RD Pager #:[phone] Jaswinder Chung, MANUFACTURING PLANNER - 02/23/2022 11:00 AM EDT Physical Therapy [...] IADLs, drives, used to work for a [employer] company but is not currently working. Enjoys [...] x 3 JASWINDER CHUNG PTA 02/23/2022 Pager: [phone] Physical Therapy Inpatient Rehabilitation Department Sixto Medina [...] MS4 02/24/2022 Acute Care Surgery Team pager [phone] A medical student assisted me in the documentation of this note. I personally saw and evaluated the patient, reviewed all applicable documented studies, and diagnostic images. The assessment and plan were formulated with the care team at the time of the visit and in my presence. I have made edits to the above note and agree with the details above. Sixto eMdina MD PGY-1, General Surgery Acute Care Surgery [...] MD 02/22/2022 Acute Care Surgery Team pager [phone] Attending Addendum I have seen and examined [...] Melissa Gonzales MD Acute Care Surgery Pager [phone] Kevon Brian MD - 02/22/2022 10:29 AM [...] MD 02/21/2022 Acute Care Surgery Team pager [phone] Associated attestation - Gela Novak MD - [...] 4 02/20/2022 Acute Care Surgery Team pager [phone] A medical student assisted me in the [...] Melissa Gonzales MD Acute Care Surgery Pager [phone] Melissa Gonzales MD - 02/19/2022 2:52 PM [...] MD 02/19/2022 Acute Care Surgery Team pager [phone] Associated attestation - Gela Novak MD - [...] mL) subcutaneous injection 5,000 Units 5,000 Units [id number] [facility] Collette Dye MD 5,000 Units at 02/18/22 [...] /HPF Stippled RBCs Present >1/HPF Vidhya Peñaloza #[phone] Dai Duarte, OT - 02/18/2022 2:48 PM [...] LUE ?? Social History: Patient lives in [place], [place] with his dad. Home Setup: [address], 2 level home, bedroom on 1st level, bathroom available on 1st level, has a tub shower downstairs. DME: none Baseline ADL/Mobility: Pt reports he was independent w/ ADL's and IADL's, had worked for a [employer]. He enjoys hunting and fishing. He reports he likes country music ?? Interval History: (Per MD note): NAEO Precautions/Special Considerations: SOAP/WATER; At risk to fall, flexiseal, L UE and L LE NWB; L forearm wound vac; SCREEN TENDER; Femoral A-line S: Ill try it I [...] Total Minutes, Occupational Therapy: 60 (tef x4 [phone]) Pager: [phone] AMA QURESHI, PEG Occupational Therapy Rehabilitation Department *POC reviewed between PEG/OTR. Patient is now activity as tolerated with BUE/LE WBAT. See updated goals below. Dai Duarte OTR/L Pager [phone] Goals updated & extended to 03/08/22: -Patient [...] MD 02/18/2022 Acute Care Surgery Team pager [phone] Associated attestation - Gela Novak MD - [...] mL) subcutaneous injection 5,000 Units 5,000 Units ActnjiigztejX3V Collette Zacarias MD 5,000 Units at 02/17/22 [...] MD 02/17/2022 Acute Care Surgery Team pager [phone] Associated attestation - Gela Novak MD - [...] Melissa Gonzales MD Acute Care Surgery Pager [phone] Tasha Matthews OTA - 02/17/2022 8:00 AM [...] better. However, at this time, he needs CALENDERING MACHINE OPERATOR. - Hemodynamically stable. PHYSICAL EXAM: Last value [...] mL) subcutaneous injection 5,000 Units 5,000 Units KkfweuornbzdW9Q Collette Zacarias MD 5,000 Units at 02/16/22 [...] (H) 0.00 - 0.04 x10(3)/mcL Vidhya Peñaloza #[phone] Associated attestation - Bambi Pressley MD - [...] MD 02/16/2022 Acute Care Surgery Team pager [phone] Associated attestation - Gela Novak MD - [...] and left superior gluteal artery via R JIGMAKER access. Reason for intervention: Follow up Nutrition [...] 02/05/2022 TRIG 359 01/26/2022 CRP <3.0 04/26/2021 [id number] 535 02/03/2022 SFOLATE 3.9 (L) 02/03/2022 IRON [...] encounter: 104.3 kg (229 lb 15 oz). [place] Body Weight: 80.9kg- [place] Usual Body Weight: [...] Based on IBW 80.9kg Estimated needs: Calories: 6316-4052 (25-30kcal/kg) Protein: 120 grams (1.5 g/kg UBW) [...] up while inpatient KAYLAH JANG RD Pager #:[phone] Vidhya Peñaloza MD - 02/15/2022 6:47 PM [...] with PMHx drug abuse, initially admitted to [facility] after he had cardiac arrest sec to [...] mg 10 mg Oral Q4H PRN Veto Hidalog MD Or ??? oxyCODONE (Roxicodone) tablet 15 [...] mL) subcutaneous injection 5,000 Units 5,000 Units WdoxmdznbndsI0K [facility] Veto Hidalgo MD 5,000 Units at 02/15/22 [...] Requested Imaging: none 8. Disposition- floor Melissa Gonzlaes MD Acute Care Surgery Pager [phone] Melissa Gonzales MD - 02/15/2022 1:46 PM [...] MD 02/15/2022 Acute Care Surgery Team pager [phone] Associated attestation - Gela Novak MD - [...] in PACU. 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 Ama Tucker RN - 02/15/2022 4:50 AM [...] EDT Hypertension/Nephrology Staff Inpatient Follow-up Alix Holland [id number] 1990 ID: 31 y.o. old male seen [...] MD 02/14/2022 Acute Care Surgery Team pager [phone] Jairo Kirkland MD - 02/13/2022 4:06 PM [...] EDT Hypertension/Nephrology Staff Inpatient Follow-up Alix Holland [id number] 1990 ID: 31 y.o. old male seen [...] chemistries otherwise stable. - no indication for CALENDERING MACHINE OPERATOR today - 1.5L/d fluid restriction - avoid [...] MD 02/13/2022 Acute Care Surgery Team pager [phone] Vidhya Peñaloza MD - 02/12/2022 8:33 PM [...] mL) subcutaneous injection 5,000 Units 5,000 Units OmxwouvjzrekK3L [place] Kaitlyn Rock MD 5,000 Units at [...] next week. Meghan Prabhakar, PT DPT Pager #[phone] 02/12/2022 Physical Therapy Rehabilitation Department Parrish Betancourt [...] MD 02/12/2022 Acute Care Surgery Team pager [phone] SURGICAL ATTENDING NOTE: Pt seen and examined [...] mL) subcutaneous injection 5,000 Units 5,000 Units QvdgbmyzmulwC6Q [facility] Kaitlyn Rock MD 5,000 Units at 02/11/222118 [...] mg 1,000 mg Oral Q8H [facility] Kaitlyn Rock MD 1,000 mg at 02/11/222118 [...] 6120 [P.O.:4850; I.V.:1009; Other:45; IV Piggyback:216] Out: 98291 [Other:95360; Stool:200] I/O this shift: In: 600 [P.O.:300; [...] Montaño MD Acute Care Surgery Team Pager [phone] 02/11/22 Sg Parra RN - 02/11/2022 2:36 PM EDT OUTCOME EVALUATION NOTE: ?? OUTCOME SUMMARY: Pt alert and oriented x4. On room air, no SOB and dyspnea. 8/10 general pain, relief with SCREEN TENDER dilaudid and PRN oral oxycodone. Wound vac [...] MD 02/11/2022 Acute Care Surgery Team pager [phone] Tamika Burk, RN - 02/11/2022 11:41 AM EDT Pt to PACU via bed from OR; monitors applied, alarms set and audible. Woke up well from Anesthesia; comfortable initially, then c/o LLE killing me. Pt given SCREEN TENDER, which he used independently. Given additional IV [...] and left superior gluteal artery via R JIGMAKER access. Interval hx: Pt continues NPO for [...] discuss plan with provider Kaylie Montaño MD #[id number]. Active Orders Diet Regular diet Frequency: Effective [...] 02/05/2022 TRIG 359 01/26/2022 CRP <3.0 04/26/2021 [id number] 535 02/03/2022 SFOLATE 3.9 (L) 02/03/2022 IRON [...] encounter: 104.3 kg (229 lb 15 oz). [place] Body Weight: 80.9kg- [place] Usual Body Weight: [...] Based on IBW 80.9kg Estimated needs: Calories: 9260-3739 (25-30kcal/kg) Protein: 200+ grams (2.5 g/kg) - [...] up while inpatient KAYLAH JANG RD Pager #:[phone] Tanesha Patel RN - 02/11/2022 6:00 AM EDT OUTCOME EVALUATION NOTE: ?? OUTCOME SUMMARY: Pt AOx4. Had SCREEN TENDER Dilaudid, IV Dilaudid and PO oxycodone for pain. Dressings had been CDI. Wound vac in situ. NPO at DC for surgery today. Awaiting MRI schedule. For [...] pain 7-10/10 despite PRN oxy and dilaudid multimedia coordinator, team aware. Q shift N/V checks, pulses dopplerable. Provider notified pt would need to disconnect from wound vacs for MRI, communication placed, ok to disconnect. NPO at midnight for washout of wounds. PLAN MOVING FORWARD: NPO at midnight for washout IHD MWF Q8 sodium levels SCREEN TENDER for pain Free water restriction 1L Vidhya Peñaloza MD - 02/10/2022 1:47 PM EDT NEPHROLOGY PROGRESS NOTE PATIENT: Alix Holland : 1990 Interval History: Patient seen and examined at bedside. On HD when seen. Tolerated HD well. I/O last 3 completed shifts: In: 6279 [P.O.:2030; I.V.:3362; Blood:350; Other:30; IV Piggyback:507] Out: 29574 [Other:87080; Stool:1025; Blood:20] I/O this shift: In: 2473 [...] mL) subcutaneous injection 5,000 Units 5,000 Units RpwsvaqokfgoS9H [place] Jeanette Escamilla APRN 5,000 Units at [...] mg/mL) in sodium chloride 0.9% 50 mL SCREEN TENDER infusion Intravenous SCREEN TENDER Only Jeanette Escamilla APRN 1 mL/hr at [...] Q1 Min PRN Jeanette Escamilla APRN ??? SCREEN TENDER h[place] Intravenous Continuous PRN Jeanette Escamilla APRN ??? HYDROmorphone (mg) SCREEN TENDER shift total and Settings verification Intravenous 2 Times Daily- SCREEN TENDER Shift Total Jeanette Escamilla APRN ??? dronabinoL [...] was initially admitted to MICU 01/23 at [facility] after he was found down [...] 02/10 0700 In: 4038 [P.O.:1250; I.V.:2350] Out: 03777 Physical Exam: General: no distress, awake in [...] pressors.Pain better controlled with PO medications and SCREEN TENDER. Nephrology is amenable to iHD in place of [facility]. ID following regarding C. diff treatment. PLAN: Neuro:?Toxic metabolic encephalopathy, bilateral globus pallidum infarcts, hx polysubstance abusewith difficult to control pain - Pain control: acetaminophen, Dilaudid SCREEN TENDER, oxycodone PRN, Dilaudid breakthrough - Marinol 10mg [...] MD, PGY2 Acute Care Surgery Team pager [phone] Jose Hernandez MD - 02/10/2022 12:47 PM [...] mg/mL) in sodium chloride 0.9% 50 mL SCREEN TENDER infusion ??? diphenhydrAMINE (Benadryl) (50 mg/mL) injection 25 mg ??? prochlorperazine (Compazine) (5 mg/mL) injection 5 mg ??? ondansetron (pf) (Zofran) (2 mg/mL) injection 4 mg ??? naloxone (Narcan) (0.4 mg/mL) injection 0.2 mg ??? SCREEN TENDER hutton ??? HYDROmorphone (mg) SCREEN TENDER shift total and Settings verification ??? dronabinoL (Marinol) capsule 10 mg ??? senna-docusate (Pericolace) 8.6-50 mg per tablet 2 tablet ??? folic acid (Folvite) tablet 1,000 mcg ??? thiamine (Vitamin B1) tablet 100 mg ??? acetaminophen (Tylenol) tablet 1,000 mg ??? HYDROmorphone 50 mg (02/07/22 0314) OBJECTIVE: Temp: [36.4 ??C (97.5 ??F)-37.4 ??C (99.4 ??F)] Heart Rate: [99-120] Resp: [12-26] BP: (120-124)/(69-74) Intake/Output Summary (Last 24 hours) at 02/10/2022 1247 Last data filed at 02/10/2022 1148 Gross per 24 hour Intake 4838 ml Output 95736 ml Net -9966 ml Body mass index [...] any changes, questions, or concerns please page [phone]. Activity: NWB LUE, NWB LLE DVT prophylaxis: [...] EDT Hypertension/Nephrology Staff Inpatient Follow-up Alix Holland [id number] 1990 ID: 31 y.o. old male seen [...] the MICU 01/23 [place]/p [place] arrest at [facility] in the setting ofbeing down for [...] control pain - pain control: acetaminophen, D. SCREEN TENDER - PRN Dilaudid for breakthrough pain, start [...] debride ment.?? Social History: Patient lives in [place], [place] with his dad. Home Setup: [address] [facility], 2 level home, bedroom on 1st level, bathroom available on 1st level, has a tub shower downstairs. DME: none Baseline ADL/Mobility: Pt reports he was independent w/ ADL's and IADL's, had worked for a [employer]. He enjoys hunting and fishing. He reports he likes country music ?? Precautions/Special Considerations: SOAP/WATER; At risk to fall, flexiseal, L UE and L LE NWB; L forearm wound vac; NPO, Bedrest; SCREEN TENDER; Femoral A-line S: My leg really hurts [...] to participate ?? Alert and oriented to: [facility], January,. When asked the day of the [...] See PT note Pain: 8/10 to LLE; SCREEN TENDER in place Education: Pt/family/caregiver education ongoing regarding: [...] Total Minutes, Occupational Therapy: 34 (10:34-11:08) Pager: [phone] DAI DUARTE OT Occupational Therapy Rehabilitation Department [...] IADLs, drives, used to work for a [employer] company but is not currently working. Enjoys [...] (PT): 2-4 times/wk Time IN / OUT: 7870-3461 Total Minutes, Physical Therapy: 31 (TEFx2). Meghan Prabhakar PT DPT 02/09/2022 Pager: [phone] Physical Therapy Inpatient Rehabilitation Department Carlo Jackson [...] and left superior gluteal artery via R JIGMAKER access. Interval hx: Pt continues NPO for OR today. Team hopeful to advance diet after OR. Reason for intervention: Malnutrition evaluation and TPN Nutrition Recommendations: ADAT and encourage good intake. Pt with high protein needs- please encourage intake of eggs, nuts, meats, tunisian yogurt, fish, and Ensure Enlive. Please order [...] 02/05/2022 TRIG 359 01/26/2022 CRP <3.0 04/26/2021 [id number] 02/03/2022 SFOLATE 3.9 (L) 02/03/2022 IRON [...] encounter: 111.7 kg (246 lb 4.1 oz). [place] Body Weight: 80.9kg- [place] Usual Body Weight: [...] Based on IBW 80.9kg Estimated needs: Calories: 6486-2896 (25-30kcal/kg) Protein: 200+ grams (2.5 g/kg) - [...] up while inpatient Carlo Jackson RD Pager #:[phone] Collette Dye MD - 02/09/2022 9:03 AM [...] was initially admitted to MICU 01/23 at [facility] after he was found down [...] diff screen (02/01): Positive Abscess/Wound Aspirate Culture [[id number]] (Abnormal) Collected: 02/08/221612 Lab Status: Preliminary result Specimen: Deep Wound from Thigh, Left Updated: 02/08/221717 Gram Stain --??Abnormal?? Many Neutrophils seen Moderate Gram Negative Rods seen ??Abnormal?? Abscess/Wound Aspirate Culture [[id number]] (Abnormal) Collected: 02/08/221612 Lab Status: Preliminary result [...] any questions regarding this consult, please page [phone] if you have any further questions. [X] Consult service to continue to follow [] Consult service to sign off Collette Dye MD, PGY2 Acute Care Surgery Team pager [phone] Bam Bahena - 02/09/2022 7:35 AM EDT [...] to the MICU 01/23??s/p [place] arrest at [facility] in the setting of being down [...] Neurology - Pain control: ?? acetaminophen, D. SCREEN TENDER ?? PRN Dilaudid for breakthrough pain ?? [...] Plastic Surgery Inpatient Progress Note (Team Pager #[phone]) Date of surgery: N/A CC/Procedure(s): N/A Surgeon: [...] Reynoso MD Plastic Surgery Inpatient Team Pager #[phone] Jesús Mcgowan PA - 02/09/2022 6:06 AM [...] of Left superior gluteal artery via R JIGMAKER access. Last Value 24 Hour Range Temperature 37.5 ??C (99.5 ??F) Temp: [36.2 ??C (97.2 ??F)-37.9 ??C (100.2 ??F)] Heart Rate (!) 115 Heart Rate: [85-138] Blood Pressure 142/75 BP: -- Respiratory Rate 26 Resp: [12-29] SpO2 100 % SpO2: [96 %-100 %] Physical Exam GEN No distress, A&O CARDS Acyanotic, Right JIGMAKER without hematoma/induration, right DP 2+ LUNGS Non-labored [...] Value Ref Range T&S only valid at [facility] Hosp Assessment: 31 y.o. male with history [...] and left superior gluteal artery via R JIGMAKER access. Last transfusion of 1 unit PRBC [...] updated and patient is medically appropriate. Pager: [phone] Amberly Hardy OT 02/08/2022 Occupational Therapy Rehabilitation [...] g 17 g Oral BID Rogers Solano, KATERYNA ??? heparin (porcine) (5,000 units/1 mL) subcutaneous injection 7,500 Units 7,500 Units IbqapcogetvkD2H [place] Rogers Solano, WHITE LEAD FILTERER ??? alteplase (Cathflo) injection 1-4 mg 1-4 mL INTRA-CATHETER Once in dialysis PRN Collette Rivas PA 2.4 mg at 02/07/22 0520 ??? heparin (porcine) (1,000 units/mL) injection 1,000-10,000 Units 1,000-10,000 Units [id number] PRN Angelina Reynoso MD ??? bicarbonate CRRT [...] 0.2 mg Intravenous Q2H PRN Rogers Solano, WHITE LEAD FILTERER ??? HYDROmorphone (Dilaudid) (1 mg/mL) in sodium chloride 0.9% 50 mL SCREEN TENDER infusion Intravenous SCREEN TENDER Only Rogers Solano, KATERYNA 1 mL/hr at [...] Q1 Min PRN Danielle Ramirez MD ??? SCREEN TENDER hutton Intravenous Continuous PRN Danielle Ramirez MD ??? HYDROmorphone (mg) SCREEN TENDER shift total and Settings verification Intravenous 2 Times Daily- SCREEN TENDER Shift Total Danielle Ramirez MD ??? vancomycin [...] bolus injection (Anesthesia) Intravenous PRN Anthony Turner PRINTED CIRCUIT BOARDS SOLDER LEVELER 10 mg at 02/06/22 1420 ??? lactated [...] 126 65 - 199 mg/dL Vidhya Peñaloza #[phone] Associated attestation - Cecilio Gee MD - [...] the MICU 01/23 s/p [place] arrest at [facility] in the setting ofbeing down for [...] control pain - pain control: acetaminophen, D. SCREEN TENDER - PRN Dilaudid for breakthrough pain - [...] Specialist in Neurologic Physical Therapy Inpatient/outpatient Rehab [facility] Parrish eBtancourt MD - 02/08/2022 8:39 AM EDT Acute [...] was initially admitted to MICU 01/23 at [facility] after he was found down [...] any questions regarding this consult, please page [phone] if you have any further questions. [X] Consult service to continue to follow [] Consult service to sign off Collette Dye MD, PGY2 Acute Care Surgery Team pager [phone] SURGICAL ATTENDING NOTE: Pt seen and examined [...] Vinod Prasad PA-C Interventional Radiology IR Provider #[id number] Shruti Bam - 02/08/2022 7:31 AM EDT ICU Progress Note Patient info: Name: Alix Holladn : 1990 PCP: None Date of Admission: [...] to the MICU 01/23??s/p [place] arrest at [facility] in the setting of being down [...] HD line rewired after TPA failed. Increased SCREEN TENDER then went down on it. 2 units [...] difficult to control pain - Acetaminophen, D. SCREEN TENDER - PRN Dilaudid for breakthrough pain - [...] mg/mL) in sodium chloride 0.9% 50 mL SCREEN TENDER infusion ??? heparin (porcine) (1,000 units/mL) injection [...] (Narcan) (0.4 mg/mL) injection 0.2 mg ??? SCREEN TENDER hutton ??? HYDROmorphone (mg) SCREEN TENDER shift total and Settings verification ??? vancomycin [...] at this time. He is using his SCREEN TENDER as demonstrated. Natalya Amador RN - 02/07/2022 6:48 PM EDT OUTCOME EVALUATION NOTE: OUTCOME SUMMARY: Pt stated increased pain this am, and received Dilaudid 0.2 mg for BTP, and increase on SCREEN TENDER, statingpain 05/10 to the left hip. With the one IV dose of Dilaudid and increase pt stated better pain, andwas unable to verbalize a number, staring out into space or closing eyes during a conversation,. Pt's SCREEN TENDER was then decreased and during the decrease [...] mg/mL) in sodium chloride 0.9% 50 mL SCREEN TENDER infusion ??? heparin (porcine) (1,000 units/mL) injection [...] (Narcan) (0.4 mg/mL) injection 0.2 mg ??? SCREEN TENDER hutton ??? HYDROmorphone (mg) SCREEN TENDER shift total and Settings verification ??? vancomycin [...] was initially admitted to MICU 01/23 at [facility] after he was found down [...] any questions regarding this consult, please page [phone] if you have any further questions. [X] [...] bowel tones EXT Minimal oozing around R JIGMAKER puncture site dressing, no hematoma. Distal pulses [...] any questions or concerns. Garret Jeter DO [facility] Interventional Radiology Jayme Armstrong MD - 02/07/2022 [...] the MICU 01/23 [place]/p [place] arrest at [facility] in the setting ofbeing down for [...] control pain - pain control: acetaminophen, D. SCREEN TENDER - PRN Dilaudid for breakthrough pain - [...] 10/10 through most of the night, dilaudid SCREEN TENDER continues with PRN pushes for break through [...] dressing change, manage bleeding L thigh fasciotomy [id number], medicated with Hydromorphone 1 mg by Jeanette [...] the MICU 01/23 s/p [place] arrest at [facility] in the setting ofbeing down for [...] control pain - pain control: acetaminophen, D. SCREEN TENDER ?? 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 Jayme Armstrong MD Jeanette Escamilla, WHITE LEAD FILTERER - 02/06/2022 10:40 AM EDT ICU Transfer [...] of LUE pain. [facility]-route to [facility] via EMS had a Vtach arrest. On arrival to OSH he was noted to have potassium of 7.8. He received multiple doses of sodium bicarb, calcium gluconate, and insulin/D10 and his potassium improved to 5.4 prior to transport. On arrival to [facility] K was again elevated at 7.6 with [...] Found to be COVID-positive. After arrival to [facility] pt was able to be weaned to minimal oxygenation support and CT chest was clear apart from partial collapse of LLL and dependent atelectasis. COVID therapies such as decadron were held due to preserved oxygenation. He did remain intubated through 01/26, not because of hypoxia, but to facilitate return OR trips and during a time of hemodynamic instability. ?? 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 He was transitioned to a hydromorphone SCREEN TENDER on 02/01. ?? C Difficile infection: Persistent [...] Neurology - Pain control: ?? acetaminophen, D. SCREEN TENDER ?? PRN Dilaudid for breakthrough pain ?? [...] of his gluteus. 1 square dressing of [place] was placed at this aspect. 3 square [...] and set appropriately. Frequent visual assessments Surveillance: [place] Critical [facility] Monitor Patient-specific fall prevention interventions [...] mg/mL) in sodium chloride 0.9% 50 mL SCREEN TENDER infusion ??? HYDROmorphone (Dilaudid) (1 mg/mL) injection syringe 1 mg ??? sevelamer carbonate (Renvela) tablet 1,600 mg ??? diphenhydrAMINE (Benadryl) (50 mg/mL) injection 25 mg ??? prochlorperazine (Compazine) (5 mg/mL) injection 5 mg ??? ondansetron (pf) (Zofran) (2 mg/mL) injection 4 mg ??? naloxone (Narcan) (0.4 mg/mL) injection 0.2 mg ??? SCREEN TENDER hutton ??? HYDROmorphone (mg) SCREEN TENDER shift total and Settings verification ??? 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 aDnia Thomas MD Nephrology Pager: [phone] Summer Robertson RN - 02/05/2022 3:35 PM [...] or concerns. Lilibeth Medina, PT, DPT Pager: [phone] 02/05/22 Inpatient Rehabilitation Department Amberly Hardy OT [...] evaluation as able and when appropriate. Pager: [phone] Amberly Hardy OT 02/05/2022 Occupational Therapy Rehabilitation Department Charlotte Castañeda RD - 02/05/2022 11:15 AM EDT Nutrition NPO Note Alix Holladn is a 31 y.o. male Patient is has had minimal nutrition (NPO for OR frequently, TF never advanced past trickle and intake of only 1 meal documented in chart) for 14 days, increasing risk for malnutrition. Please limit NPO time - suggest TPN as a bridge Communicated nutrition recs to Medicine pager #[phone] Visualized patient for overt cachectic appearance: no [...] d/t fluid status Charlotte Castañeda RD Pager: [phone] Dilcia Lopez MD - 02/05/2022 9:56 AM [...] the past 24 hour(s)) GC Gene Amp ([facility]/CGP/APD/NL) Urine Specimen: Urine Result Value Ref Range GC Gene Amp Negative Negative GC Source Urine Chlamydia Gene Amp ([facility]/CGP/APD/NL) Urine Specimen: Urine Result Value Ref Range [...] Value Ref Range T&S only valid at [facility] Hosp Prepare RBC Result Value Ref Range Dispensed? Yes Hemoglobin Result Value Ref Range Hemoglobin 7.0 (L) 13.7 - 16.5 g/dL Microbiology: Microbiology Results (Last 30 days) Procedure Component Value Units Date/Time GC Gene Amp ([facility]/CGP/APD/[facility]) Urine [[id number]] Collected: 02/04/221619 Lab Status: Final result Specimen: Urine Updated: 02/05/22641 GC Gene Amp Negative Comment: The only FDA approved specimen types for this assay are cervical, vaginal, urethral and urine. Non-FDA approved sources are eye, throat and rectal and have been internally validated. GC Source Urine Chlamydia Gene Amp ([facility]/P/APD/[facility]) Urine [[id number]] Collected: 02/04/221619 Lab Status: Final result Specimen: Urine Updated: 02/05/22641 Chlamydia Gene Amp Negative Comment: The only FDA approved specimen types for this assay are cervical, vaginal, urethral and urine. Non-FDA approved sources are eye, throat and rectal and have been internally validated. Chlamydia Source Urine C. Difficile Screen [[id number]] (Abnormal) Collected: 02/01/22 1355 Lab Status: Final [...] or approval by Infection Prevention. Blood culture [[id number]] Collected: 02/01/22 0635 Lab Status: Preliminary result Specimen: Blood Updated: 02/04/22 1502 Blood Culture No growth at 3 days. Blood culture [[id number]] Collected: 02/01/22 0625 Lab Status: Preliminary result Specimen: Blood Pediatric Updated: 02/04/22 1502 Blood Culture No growth at 3 days. Blood culture [[id number]] Collected: 01/28/22 0345 Lab Status: Final result Specimen: Blood Updated: 02/02/22 0701 Blood Culture No growth at 5 days. MRSA PCR [[id number]] Collected: 01/24/22 1310 Lab Status: Final result Specimen: Nasopharyngeal Swab Updated: 01/25/22 2224 MRSA Result Negative MRSA Interp -- Negative for methicillin-resistant Staphylococcus aureus (MRSA) This test was performed using the [employer]?? Dx System and the Xpert MRSA Assay. The MRSA target DNA was not detected. The sample processing control and probe check were valid. The performance of this test was determined by the [facility] Molecular Pathology Laboratory. It has been cleared by the U.S. Food and Drug Administration for clinical use. Comment: [VERIFIED DATE]01.25.22 Verified By:Alfonso Soto (Electronic Signature) MRSA PCR [[id number]] Collected: 01/23/22 1247 Lab Status: Final result Specimen: Nasopharyngeal Swab Updated: 01/25/22 1023 MRSA Result Negative MRSA Interp -- Negative for methicillin-resistant Staphylococcus aureus (MRSA) This test was performed using the [employer] Dx System and the Xpert MRSA Assay. The MRSA target DNA was not detected. The sample processing control and probe check were valid. The performance of this test was determined by the [facility] Molecular Pathology Laboratory. It has been cleared by the U.S. Food and Drug Administration for clinical use. Comment: [VERIFIED DATE]01.25.22 Verified By:Nora Shay (Electronic Signature) Lower Respiratory Culture Tracheal Aspirate [[id number]] (Abnormal) (Susceptibility) Collected: 01/23/22 1150 Lab Status: [...] Sensitive [1] Gentamicin is not appropriate for [place]-therapy. [2] Oxacillin (methicillin) susceptibility is a surrogate for the oral and parenteral cephalosporins, beta-lactam combination agents (amoxicillin-clavulanate, ampicillin-sulbactam and piperacillin-tazobactam) and carbapenem agents. It is NOT a surrogate for penicillin, ampicillin or piperacillin susceptibility. Linear View Blood culture [[id number]] Collected: 01/23/22 0600 Lab Status: Final result Specimen: Blood Updated: 01/28/22 0701 Blood Culture No growth at 5 days. Blood culture [[id number]] Collected: 01/23/22 0126 Lab Status: Final result Specimen: Blood Updated: 01/28/22 0701 Blood Culture No growth at 5 days. COVID-19 PCR [[id number]] (Abnormal) Collected: 01/23/22 0044 Lab Status: Final [...] diagnosis of COVID-19 is performed using the [employer] SARS-CoV-2 Assay as authorized by the FDA Emergency Use Authorization (EUA). This EUA assay is intended for In-vitro Diagnostic (IVD) use with respiratory specimens such as nasopharyngeal swabs collected from individuals during the acute phase of infection. This assay is performed based on the instructions for use provided by [employer] and additional guidance provided by CDC and FDA. Testing is performed in the [facility] within the Department of Pathology and Laboratory Medicine at [facility], certified under the Clinical Laboratory Improvement Amendments [...] fact sheets at the following FDA website: https://www.fda.gov/medical-devices/znnfukurrus-pxromzk-3138-zaldk-29-bfiyxnpzw- vyx-mlepsubruzjmws-hdduivy-devices/ulwpf-pyooqrmlyef-cdkv SARS-Cov-2 RNA Source Trach Asp MRSA PCR [[id number]] Collected: 01/23/22 0044 Lab Status: Final result [...] of this test was determined by the [facility] Molecular Pathology Laboratory. It has been cleared [...] who have questions please contact the health wound care center consultant that requested your imaging first. Head wo Contrast (Generic) (Exam End: 01/23/2022 3:58 AM) Impression Globi pallidi infarcts. Mild cerebral edema. Thank you for letting us participate in the care of this patient. If you are a health care provider and have any questions regarding this report, please contact the number below. For patients who have questions please contact the health wound care center consultant that requested your imaging first. Abdomen 1 [...] who have questions please contact the health wound care center consultant that requested your imaging first. Lower Extremity [...] who have questions please contact the health wound care center consultant that requested your imaging first. Chest wo [...] who have questions please contact the health wound care center consultant that requested your imaging first. Upper Extremity [...] who have questions please contact the health wound care center consultant that requested your imaging first. Forearm Left [...] who have questions please contact the health wound care center consultant that requested your imaging first. Chest One [...] who have questions please contact the health wound care center consultant that requested your imaging first. Femur 2 views Left (Generic) (Exam End: 01/23/2022 2:04 PM) Impression No significant osseous finding. Thank you for letting us participate in the care of this patient. If you are a health care provider and have any questions regarding this report, please contact the number below. For patients who have questions please contact the health wound care center consultant that requested your imaging first. Tibia Fibula Left (Generic) (Exam End: 01/23/2022 2:04 PM) Impression No bony abnormality seen. Thank you for letting us participate in the care of this patient. If you are a health care provider and have any questions regarding this report, please contact the number below. For patients who have questions please contact the health wound care center consultant that requested your imaging first. Chest One [...] who have questions please contact the health wound care center consultant that requested your imaging first. Brain wo [...] who have questions please contact the health wound care center consultant that requested your imaging first. Angiogram [place] (Exam End: 01/24/2022 11:32 PM) Impression Normal appearance of the large and medium size arteries of the head and neck Thank you for letting us participate in the care of this patient. If you are a health care provider and have any questions regarding this report, please contact the number below. For patients who have questions please contact the health wound care center consultant that requested your imaging first. Angiogram Carotids [...] who have questions please contact the health wound care center consultant that requested your imaging first. Chest Abdomen [...] who have questions please contact the health wound care center consultant that requested your imaging first. Assessment: Alix [...] to this Complex pain needs - adjusted SCREEN TENDER yesterday with improvement Leukocytosis now down-trending with [...] and restarted precautions ?? 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 # Pain Control, c/b Chronic Opiate Abuse - adjusted SCREEN TENDER - consider subboxone/BIT once more stable ad [...] mg/mL) in sodium chloride 0.9% 50 mL SCREEN TENDER infusion ??? HYDROmorphone (Dilaudid) (1 mg/mL) injection syringe 1 mg ??? sevelamer carbonate (Renvela) tablet 1,600 mg ??? diphenhydrAMINE (Benadryl) (50 mg/mL) injection 25 mg ??? prochlorperazine (Compazine) (5 mg/mL) injection 5 mg ??? ondansetron (pf) (Zofran) (2 mg/mL) injection 4 mg ??? naloxone (Narcan) (0.4 mg/mL) injection 0.2 mg ??? SCREEN TENDER hutton ??? HYDROmorphone (mg) SCREEN TENDER shift total and Settings verification ??? vancomycin [...] mg/mL) in sodium chloride 0.9% 50 mL SCREEN TENDER infusion ??? HYDROmorphone (Dilaudid) (1 mg/mL) injection syringe 1 mg ??? sevelamer carbonate (Renvela) tablet 1,600 mg ??? diphenhydrAMINE (Benadryl) (50 mg/mL) injection 25 mg ??? prochlorperazine (Compazine) (5 mg/mL) injection 5 mg ??? ondansetron (pf) (Zofran) (2 mg/mL) injection 4 mg ??? naloxone (Narcan) (0.4 mg/mL) injection 0.2 mg ??? SCREEN TENDER hutton ??? HYDROmorphone (mg) SCREEN TENDER shift total and Settings verification ??? vancomycin [...] in the left wrist, less somnolent Changed SCREEN TENDER 4 hour limit and increased dose from [...] Component Value Units Date/Time C. Difficile Screen [[id number]] (Abnormal) Collected: 02/01/22 1355 Lab Status: Final [...] or approval by Infection Prevention. Blood culture [[id number]] Collected: 02/01/22 0635 Lab Status: Preliminary result Specimen: Blood Updated: 02/04/22 1502 Blood Culture No growth at 3 days. Blood culture [[id number]] Collected: 02/01/22 0625 Lab Status: Preliminary result Specimen: Blood Pediatric Updated: 02/04/22 1502 Blood Culture No growth at 3 days. Blood culture [[id number]] Collected: 01/28/22 0345 Lab Status: Final result Specimen: Blood Updated: 02/02/22 0701 Blood Culture No growth at 5 days. MRSA PCR [[id number]] Collected: 01/24/22 1310 Lab Status: Final result Specimen: Nasopharyngeal Swab Updated: 01/25/22 2224 MRSA Result Negative MRSA Interp -- Negative for methicillin-resistant Staphylococcus aureus (MRSA) This test was performed using the [employer]?? Dx System and the Xpert MRSA Assay. The MRSA target DNA was not detected. The sample processing control and probe check were valid. The performance of this test was determined by the [facility]. It has been cleared by the U.S. Food and Drug Administration for clinical use. Comment: [VERIFIED DATE]01.25.22 Verified By:Alfonso Soto (Electronic Signature) MRSA PCR [[id number]] Collected: 01/23/22 1247 Lab Status: Final result Specimen: Nasopharyngeal Swab Updated: 01/25/22 1023 MRSA Result Negative MRSA Interp -- Negative for methicillin-resistant Staphylococcus aureus (MRSA) This test was performed using the [employer]?? Dx System and the Xpert MRSA Assay. The MRSA target DNA was not detected. The sample processing control and probe check were valid. The performance of this test was determined by the [facility]. It has been cleared by the U.S. Food and Drug Administration for clinical use. Comment: [VERIFIED DATE]01.25.22 Verified By:Nora Shay (Electronic Signature) Lower Respiratory Culture Tracheal Aspirate [[id number]] (Abnormal) (Susceptibility) Collected: 01/23/22 1150 Lab Status: [...] Sensitive [1] Gentamicin is not appropriate for [place]-therapy. [2] Oxacillin (methicillin) susceptibility is a surrogate for the oral and parenteral cephalosporins, beta-lactam combination agents (amoxicillin-clavulanate, ampicillin-sulbactam and piperacillin-tazobactam) and carbapenem agents. It is NOT a surrogate for penicillin, ampicillin or piperacillin susceptibility. Linear View Blood culture [[id number]] Collected: 01/23/22 0600 Lab Status: Final result Specimen: Blood Updated: 01/28/22 0701 Blood Culture No growth at 5 days. Blood culture [[id number]] Collected: 01/23/22 0126 Lab Status: Final result Specimen: Blood Updated: 01/28/22 0701 Blood Culture No growth at 5 days. COVID-19 PCR [[id number]] (Abnormal) Collected: 01/23/22 0044 Lab Status: Final [...] diagnosis of COVID-19 is performed using the [employer] SARS-CoV-2 Assay as authorized by the FDA Emergency Use Authorization (EUA). This EUA assay is intended for In-vitro Diagnostic (IVD) use with respiratory specimens such as nasopharyngeal swabs collected from individuals during the acute phase of infection. This assay is performed based on the instructions for use provided by [employer] and additional guidance provided by CDC and FDA. Testing is performed in the [facility] within the Department of Pathology and Laboratory Medicine at [facility], certified under the Clinical Laboratory Improvement Amendments [...] fact sheets at the following FDA website: https://www.fda.gov/medical-devices/qtfaychrdtt-xztopho-5449-plawj-75-modhbvqlu- ztd-yjpomeavdqjujm-qbkezjr-devices/nrrmi-gghwbkaxlze-qizz SARS-Cov-2 RNA Source Trach Asp MRSA PCR [[id number]] Collected: 01/23/22 0044 Lab Status: Final result [...] of this test was determined by the [facility]. It has been cleared [...] who have questions please contact the health wound care center consultant that requested your imaging first. Head wo Contrast (Generic) (Exam End: 01/23/2022 3:58 AM) Impression Globi pallidi infarcts. Mild cerebral edema. Thank you for letting us participate in the care of this patient. If you are a health care provider and have any questions regarding this report, please contact the number below. For patients who have questions please contact the health wound care center consultant that requested your imaging first. Abdomen 1 [...] who have questions please contact the health wound care center consultant that requested your imaging first. Lower Extremity [...] who have questions please contact the health wound care center consultant that requested your imaging first. Chest wo [...] who have questions please contact the health wound care center consultant that requested your imaging first. Upper Extremity [...] who have questions please contact the health wound care center consultant that requested your imaging first. Forearm Left [...] who have questions please contact the health wound care center consultant that requested your imaging first. Chest One [...] who have questions please contact the health wound care center consultant that requested your imaging first. Femur 2 views Left (Generic) (Exam End: 01/23/2022 2:04 PM) Impression No significant osseous finding. Thank you for letting us participate in the care of this patient. If you are a health care provider and have any questions regarding this report, please contact the number below. For patients who have questions please contact the health wound care center consultant that requested your imaging first. Tibia Fibula Left (Generic) (Exam End: 01/23/2022 2:04 PM) Impression No bony abnormality seen. Thank you for letting us participate in the care of this patient. If you are a health care provider and have any questions regarding this report, please contact the number below. For patients who have questions please contact the health wound care center consultant that requested your imaging first. Chest One [...] who have questions please contact the health wound care center consultant that requested your imaging first. Brain wo [...] who have questions please contact the health wound care center consultant that requested your imaging first. Angiogram [place] (Exam End: 01/24/2022 11:32 PM) Impression Normal appearance of the large and medium size arteries of the head and neck Thank you for letting us participate in the care of this patient. If you are a health care provider and have any questions regarding this report, please contact the number below. For patients who have questions please contact the health wound care center consultant that requested your imaging first. Angiogram Carotids [...] who have questions please contact the health wound care center consultant that requested your imaging first. Chest Abdomen [...] who have questions please contact the health wound care center consultant that requested your imaging first. Assessment: Alix [...] to this Complex pain needs - adjusted SCREEN TENDER Leukocytosis now down-trending with treatment of c dif. Also requiring prophylaxis abx with cefazolin until fasciotomy closures. Duplexes were ordered for concern for DVT however these were not able to be completed due to Vac continue SCREEN TENDER Plan: #Rhabdomyolysis??d/t LUE??+ LLE??Compartment Syndrome??with hyperkalemic cardiac [...] and restarted precautions ?? 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 # Pain Control, c/b Chronic Opiate Abuse - adjusted SCREEN TENDER -on patient controlled anesthesia ? 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 Dania Thomas MD Nephrology Pager: [phone] Phoenix Dhillon RN - 02/04/2022 6:48 AM EDT OUTCOME EVALUATION NOTE: OUTCOME SUMMARY: Patient remains alert and oriented. He has been maxing out his SCREEN TENDER pumps limit and increased number of attempts [...] 250cc SS output over last 24 hours. SCREEN TENDER for pain control. 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 diphenhydrAMINE (Benadryl) (50 mg/mL) injection 25 mg ??? prochlorperazine (Compazine) (5 mg/mL) injection 5 mg ??? ondansetron (pf) (Zofran) (2 mg/mL) injection 4 mg ??? naloxone (Narcan) (0.4 mg/mL) injection 0.2 mg ??? SCREEN TENDER hutton ??? HYDROmorphone (mg) SCREEN TENDER shift total and Settings verification ??? vancomycin [...] Component Value Units Date/Time C. Difficile Screen [[id number]] (Abnormal) Collected: 02/01/22 1355 Lab Status: Final [...] or approval by Infection Prevention. Blood culture [[id number]] Collected: 02/01/22 0635 Lab Status: Preliminary result Specimen: Blood Updated: 02/03/22 1501 Blood Culture No growth at 2 days. Blood culture [[id number]] Collected: 02/01/22 0625 Lab Status: Preliminary result Specimen: Blood Pediatric Updated: 02/03/22 1501 Blood Culture No growth at 2 days. Blood culture [[id number]] Collected: 01/28/22 0345 Lab Status: Final result Specimen: Blood Updated: 02/02/22 0701 Blood Culture No growth at 5 days. MRSA PCR [[id number]] Collected: 01/24/22 1310 Lab Status: Final result Specimen: Nasopharyngeal Swab Updated: 01/25/224 MRSA Result Negative MRSA Interp -- Negative for methicillin-resistant Staphylococcus aureus (MRSA) This test was performed using the [employer]?? Dx System and the Xpert MRSA Assay. The MRSA target DNA was not detected. The sample processing control and probe check were valid. The performance of this test was determined by the [facility]. It has been cleared by the U.S. Food and Drug Administration for clinical use. Comment: [VERIFIED DATE]01.25.22 Verified By:Alfonso Soto (Electronic Signature) MRSA PCR [[id number]] Collected: 01/23/22 1247 Lab Status: Final result [...] of this test was determined by the [facility]. It has been cleared by the U.S. Food and Drug Administration for clinical use. Comment: [VERIFIED DATE]01.25.22 Verified By:Nora Shay (Electronic Signature) Lower Respiratory Culture Tracheal Aspirate [[id number]] (Abnormal) (Susceptibility) Collected: 01/23/22 1150 Lab Status: [...] Sensitive [1] Gentamicin is not appropriate for [place]-therapy. [2] Oxacillin (methicillin) susceptibility is a surrogate for the oral and parenteral cephalosporins, beta-lactam combination agents (amoxicillin-clavulanate, ampicillin-sulbactam and piperacillin-tazobactam) and carbapenem agents. It is NOT a surrogate for penicillin, ampicillin or piperacillin susceptibility. Linear View Blood culture [[id number]] Collected: 01/23/22 0600 Lab Status: Final result Specimen: Blood Updated: 01/28/22 0701 Blood Culture No growth at 5 days. Blood culture [[id number]] Collected: 01/23/22 0126 Lab Status: Final result Specimen: Blood Updated: 01/28/22 0701 Blood Culture No growth at 5 days. COVID-19 PCR [[id number]] (Abnormal) Collected: 01/23/22 0044 Lab Status: Final [...] diagnosis of COVID-19 is performed using the [employer] SARS-CoV-2 Assay as authorized by the FDA Emergency Use Authorization (EUA). This EUA assay is intended for In-vitro Diagnostic (IVD) use with respiratory specimens such as nasopharyngeal swabs collected from individuals during the acute phase of infection. This assay is performed based on the instructions for use provided by [employer] and additional guidance provided by CDC and FDA. Testing is performed in the [facility] within the Department of Pathology and Laboratory Medicine at [facility], certified under the Clinical Laboratory Improvement Amendments [...] fact sheets at the following FDA website: https://www.fda.gov/medical-devices/ywblymthqhc-skrwwmg-4809-ibjij-78-kmphoxhez- pua-xzbzzgfkyhncgn-ncfxfoe-devices/kwciq-ouhlhopjjbm-wvxc SARS-Cov-2 RNA Source Trach Asp MRSA PCR [[id number]] Collected: 01/23/22 0044 Lab Status: Final result [...] of this test was determined by the [facility]. It has been cleared [...] who have questions please contact the health wound care center consultant that requested your imaging first. Head wo Contrast (Generic) (Exam End: 01/23/2022 3:58 AM) Impression Globi pallidi infarcts. Mild cerebral edema. Thank you for letting us participate in the care of this patient. If you are a health care provider and have any questions regarding this report, please contact the number below. For patients who have questions please contact the health wound care center consultant that requested your imaging first. Abdomen 1 [...] who have questions please contact the health wound care center consultant that requested your imaging first. Lower Extremity [...] who have questions please contact the health wound care center consultant that requested your imaging first. Chest wo [...] who have questions please contact the health wound care center consultant that requested your imaging first. Upper Extremity [...] who have questions please contact the health wound care center consultant that requested your imaging first. Forearm Left [...] who have questions please contact the health wound care center consultant that requested your imaging first. Chest One [...] who have questions please contact the health wound care center consultant that requested your imaging first. Femur 2 views Left (Generic) (Exam End: 01/23/2022 2:04 PM) Impression No significant osseous finding. Thank you for letting us participate in the care of this patient. If you are a health care provider and have any questions regarding this report, please contact the number below. For patients who have questions please contact the health wound care center consultant that requested your imaging first. Tibia Fibula Left (Generic) (Exam End: 01/23/2022 2:04 PM) Impression No bony abnormality seen. Thank you for letting us participate in the care of this patient. If you are a health care provider and have any questions regarding this report, please contact the number below. For patients who have questions please contact the health wound care center consultant that requested your imaging first. Chest One [...] who have questions please contact the health wound care center consultant that requested your imaging first. Brain wo [...] who have questions please contact the health wound care center consultant that requested your imaging first. Angiogram [place] (Exam End: 01/24/2022 11:32 PM) Impression Normal appearance of the large and medium size arteries of the head and neck Thank you for letting us participate in the care of this patient. If you are a health care provider and have any questions regarding this report, please contact the number below. For patients who have questions please contact the health wound care center consultant that requested your imaging first. Angiogram Carotids [...] who have questions please contact the health wound care center consultant that requested your imaging first. Chest Abdomen [...] who have questions please contact the health wound care center consultant that requested your imaging first. Assessment: Alix [...] to be completed due to Vac continue SCREEN TENDER Plan: #Rhabdomyolysis??d/t LUE??+ LLE??Compartment Syndrome??with hyperkalemic cardiac [...] longer requires precautions ?? 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 Dania Thomas MD Nephrology Pager: [phone] Amberly Hardy OT - 02/03/2022 1:09 PM EDT Occupational Therapy Note Document Type: contact Total Minutes, Occupational Therapy: 0 Reason: Patient with low Hgb, 5.6. Defer OT. Will follow up as able and when appropriate. Pager: [phone] Amberly Hardy OT 02/03/2022 Occupational Therapy Rehabilitation [...] Communicated nutrition recs to provider Medicine pager #[phone]. Active Orders Diet NPO diet (Give Meds) [...] 01/28/2022 TRIG 359 01/26/2022 CRP <3.0 04/26/2021 [id number] 02/03/2022 SFOLATE 3.9 (L) 02/03/2022 IRON [...] encounter: 116.9 kg (257 lb 11.5 oz). [place] Body Weight: 81 kg Usual Body Weight: [...] sedation and extubated. 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 TF frequently held for OR, have not advanced past trickle TF. TF d/c today, no access at this time. 01/25: Patient intubated and sedated. Pt to OR today for wound vacs. Estimated needs: Calories: 3415-0243 (20-25 kcal/kg IBW) for the first 7-10 [...] inpatient Thank you, Charlotte Castañeda RD Pager #:[phone] Candida Tearn RN - 02/03/2022 11:39 AM EDT Patient Name: Alix Holland Refuge Worker: Dania Thomas Refuge Worker Requested Clinic: [facility] [address] [place] [address] PHONE NUMBER Contact Phone/ First date of [...] unit for Hgb 6.4 74, likely ABLA SCREEN TENDER for pain control. ALTHEA requiring CALENDERING MACHINE OPERATOR, now iHD Patient denies chest pain, shortness [...] mg/mL) in sodium chloride 0.9% 50 mL SCREEN TENDER infusion ??? diphenhydrAMINE (Benadryl) (50 mg/mL) injection 25 mg ??? prochlorperazine (Compazine) (5 mg/mL) injection 5 mg ??? ondansetron (pf) (Zofran) (2 mg/mL) injection 4 mg ??? naloxone (Narcan) (0.4 mg/mL) injection 0.2 mg ??? SCREEN TENDER hutton ??? HYDROmorphone (mg) SCREEN TENDER shift total and Settings verification ??? vancomycin [...] mg/mL) in sodium chloride 0.9% 50 mL SCREEN TENDER infusion ??? diphenhydrAMINE (Benadryl) (50 mg/mL) injection 25 mg ??? prochlorperazine (Compazine) (5 mg/mL) injection 5 mg ??? ondansetron (pf) (Zofran) (2 mg/mL) injection 4 mg ??? naloxone (Narcan) (0.4 mg/mL) injection 0.2 mg ??? SCREEN TENDER hutton ??? HYDROmorphone (mg) SCREEN TENDER shift total and Settings verification ??? 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 Dania Thomas MD Nephrology Pager: [phone] Luzmaria Saavedra RN - 02/02/2022 10:24 AM EDT C. difficile Infection (CDI) Consult Note Reason for Consult: Patient tested positive for C. difficile. Pertinent labs: PCR positive on 02/01/2022 Section of Infectious Disease Treatment Recommendations: For all inpatient cases of C. difficile [facility] Section of Infectious Disease recommends 125 mg of oral vancomycin QID for at least 14 days (10days beyond symptom resolution), even in cases of guqq-io-obeqcsfa disease. For cases of severe C. difficile infection, please call an Infectious Disease consult and consider adding intravenous metronidazole in addition to oral vancomycin. If the patient is on broad- spectrum antibiotics for another indication, consider continuing oral vancomycin for 7 days after the other antibiotics are stopped. For questions regarding treatment please contact the Infectious Disease fellow corporate health consultant at pager [phone]. Infection Prevention Recommendations: ? ? Isolation Recommendations- [...] stay is anticipated, consult Infection Prevention (Pager [phone]) to discuss the process for discontinuing S&W [...] a previously positive test. Applicable policies, guidelines: (97091) C. difficile Testing Policy (v.3) Soap & Water Contact Precautions and C. difficile Procedure Standard and Expanded Precautions Policy Precautions for Specific Diseases and Conditions - Job Aid For questions regarding treatment, please contact the Infectious Disease fellow corporate health consultant at pager [phone]. For all other questions regarding C. difficile, please contact Infection Prevention at [phone] or pager [phone]. Thank you. Evangelina Flynn MD - 02/02/2022 10:23 AM EDT MICU STAFF PROGRESS NOTE Critical Care Medicine Author: Evangelina Flynn MD Patient seen and examined on critical care rounds and discussed with house staff. Interval Events: Diagnosed with C diff, started on po vanco Anemia slightly worse yesterday, PRBC tx, suspected from oozing HD session ongoing this morning Pain better controlled on SCREEN TENDER Per dad slept well last night, more [...] Ventilator: NA on RA Current Drips: Dilaudid SCREEN TENDER Labs/studies reviewed, notable for: WBC 33, downtrending [...] with leukocytosis now on treatment, pneumonia, and [id number] infection (known prior to admission.) Fortunately he is cognitively intact. Active management needs include ongoing pain control which is currently better on dilaudid SCREEN TENDER, need for long-term management of substance use [...] DVTs ordered yesterday and pending NEURO: dilaudid SCREEN TENDER for acute pain currently; long-term suboxone may [...] for Hgb 6.4 yesterday, likely ABLA Started SCREEN TENDER for pain control. Patient denies chest pain, [...] mg/mL) in sodium chloride 0.9% 50 mL SCREEN TENDER infusion ??? diphenhydrAMINE (Benadryl) (50 mg/mL) injection 25 mg ??? prochlorperazine (Compazine) (5 mg/mL) injection 5 mg ??? ondansetron (pf) (Zofran) (2 mg/mL) injection 4 mg ??? naloxone (Narcan) (0.4 mg/mL) injection 0.2 mg ??? SCREEN TENDER hutton ??? HYDROmorphone (mg) SCREEN TENDER shift total and Settings verification ??? fentaNYL [...] (1,000 units/mL) injection 1,000-10,000 Units 1,000-10,000 Units JirrvduisxdwuU3R PRN Dimas Hernandez MD 2,400 Units at [...] mL) subcutaneous injection 5,000 Units 5,000 Units VljbjtpbumykR4D Dimas Santos MD 5,000 Units at 02/01/22 [...] Sanz MD - 02/01/2022 9:11 AM EDT [facility] MICU STAFF PROGRESS NOTE SECTION OF PULMONARY [...] Section of Pulmonary & Critical Care Pager: [phone] Armando, Doc Martinez MD - 02/01/2022 6:45 [...] (1,000 units/mL) injection 1,000-10,000 Units 1,000-10,000 Units VudcykwseixyxG8W PRN Dimas Hernandez MD ??? bicarbonate CRRT [...] mg 1,000 mg Oral Q8H [facility] Dimas Hernandez MD 1,000 mg at 01/31/22 [...] mL) subcutaneous injection 5,000 Units 5,000 Units [id number] Dimas Santos MD 5,000 Units at 01/31/22 [...] We will plan for further shift therapy CALENDERING MACHINE OPERATOR overnight. Anticipate trial of intermittent dialysis TuesdayFebruary 02 assuming intake and vital signs remain acceptable. Beck Sanz MD - 01/31/2022 8:51 AM EDT [facility] MICU STAFF PROGRESS NOTE SECTION OF PULMONARY [...] Section of Pulmonary & Critical Care Pager: [phone] Dimas Hernandez MD - 01/31/2022 6:25 AM [...] seen and examined. - Patient transitioned to [facility]. - Chemistries are stable for [...] (1,000 units/mL) injection 1,000-10,000 Units 1,000-10,000 Units VcdfyembizwjgU5Z PRN Vidhya Peñaloza MD ??? bicarbonate CRRT [...] mg 100 mg Oral Daily Agnieszka López WHITE LEAD FILTERER 100 mg at ??? ampicillin-sulbactam (Unasyn) 1.5 g vial attach to sodium chloride 0.9% 50 mL Mini-Bag Plus 1.5 g Intravenous Q8H Agnieszka López APRN Stopped at 01/30/22928 ??? acetaminophen (Tylenol) tablet 1,000 mg 1,000 mg Oral Q8H [place] Cristina Hillman, WHITE LEAD FILTERER 1,000 mg at 01/30/22 0611 ??? polyethylene glycoL (Miralax) packet 17 g 17 g Oral Daily Cristina Hillman, WHITE LEAD FILTERER 17 g at 01/29/2257 ??? lidocaine (Lidoderm) 5% patch 3 patch 3 patch Transdermal Q24H Snu Hayden PA 3 patch at 01/29/222211 And ??? lidocaine (Lidoderm) topical patch REMOVAL 1 patch Transdermal Q24H Sun Hayden PA ??? pantoprazole (Protonix) injection 40 mg 40 mg Intravenous Daily Cristina Hillman B, WHITE LEAD FILTERER 40 mg at01/30/22916 ??? docusate sodium (Colace) (10 mg/mL) oral liquid 100 mg 100 mg Oral BID Cristina Hillman B, WHITE LEAD FILTERER 100 mg at 01/29/222130 And ??? sennosides (Senokot) (1.76 mg/mL) oral liquid 17.6 mg 17.6 mg Oral BID Cristina Hillman B, WHITE LEAD FILTERER 17.6 mg at 01/29/222130 ??? naloxone (Narcan) [...] 400 Units/hr Intravenous Continuous Cristina Hillman B WHITE LEAD FILTERER 8 mL/hr at 01/29/222130 400 Units/hr at 01/29/222130 ??? glucose (Glutose) 40% oral geL 15-30 g of glucose Buccal Q30 Min PRN Rafy Gemma B WHITE LEAD FILTERER Or ??? dextrose 10% infusion 250 mL Intravenous Q30 Min PRN Rafy Gemma B, WHITE LEAD FILTERER Stopped at Or ??? glucagon (Glucagen) (1 mg/mL) injection solution 1 mg 1 mg Intramuscular Q30 Min PRN Rafy Gemashley B WHITE LEAD FILTERER ??? heparin (porcine) (5,000 units/1 mL) subcutaneous injection 5,000 Units 5,000 Units [id number] [facility] Rafy, Gemma B, WHITE LEAD FILTERER 5,000 Units at 01/30/22 0611 Recent Results [...] QTC Calculated (Bezet) 418 ms Calculated P Warren 13 degrees Calculated R Warren 31 degrees Calculated T Warren -8 degrees INTERPRETATION Sinus tachycardia Nonspecific T [...] 9 5 - 15 mmol/L Vidhya Peñaloza #[phone] Associated attestation - Jareth Nino MD - 01/30/2022 4:29 PM EDT I discussed patient with the fellow and observed from the doorway in the setting of COVID-19 isolation. 31-year-old male with an uric ALTHEA in the setting of rhabdomyolysis. We will trial prolonged intermittent CRRT over the weekend. [place] for success of this will be tapering fluid intake target 2 to 3 L. If he is able to tolerate this and we are able to manage ongoing metabolic derangements could consider transition to intermittent dialysis by next week should patient remain anuric Beck Sanz MD - 01/30/2022 8:49 AM EDT [facility]AFF PROGRESS NOTE SECTION OF PULMONARY [...] Section of Pulmonary & Critical Care Pager: [phone] Armando, Doc Martinez MD - 01/30/2022 6:48 [...] from the original note were not included. aJck Joe OT - 01/29/2022 10:40 AM EDT [...] by Sigifredo Garcia MD at [facility] OR ? ? PRO DEBRIDEMENT MUSCLE AND FASCIA 20 SQ CM/< Left 01/26/2022 DEBRIDEMENT SKIN, SUBCU, MUSCLE, UPPER EXTREMITY (WRVU 2.7) performed by Sigifredo Garcia MD at [facility] MAIN OR ??? PRO DECOMP FOREARM, 2 COMPART, W/O DEBRIDE Left 01/23/2022 FASCIOTOMY; FOREARM AND\OR WRIST, FLEXOR & EXTENS. COMP (WRVU 10.79) performed by Sigifredo Garcia MD at [facility] MAIN OR ??? PRO DECOMPRESS ANT/LAT+POST LEG CMPART Left 01/23/2022 FASCIOTOMY, LOWER LEG, ALL COMPARTMENTS (WRVU 7.82) performed by Sigifredo Garcia MD at [facility] MAIN OR ??? PRO INCIS OF HIP/THIGH FASCIA Left 01/23/2022 @FASCIOTOMY,THIGH OR HIP FOR COMPARTMENT SYNDROME (WRVU 12.89) performed by Sigifredo Garcia MD at [facility] OR ??? PRO OPEN TREAT MANDIBLE CONDYLE FX, COMPL 04/27/2013 OPEN TREATMENT, COMPLEX MANDIBLE FX., MULTI APPROACH, W/ FIXATION performed by Kishore Neil MD at [facility] MAIN OR ??? PRO REVISE MEDIAN N/CARPAL TUNNEL SURG Left 01/23/2022 MEDIAN NERVE DECOMPRESSION (CARPAL TUNNEL RELEASE) (WRVU 4.97) performed by Sigifredo Garcia MD at [facility] MAIN OR ??? PRO SEC CLSR SURG WOUND/DEHSN EXTENSIVE/COMPLICATED Left 01/26/2022 SECONDARY CLOSURE SURGICAL WOUND OR DEHISCENCE, EXTENSIVE OR COMPLICATED, UPPER EXTREMITY (WRVU 12.04) performed by Sigifredo Garcia MD at [facility] MAIN OR Social History: Patient lives in [place], [place] with his dad. Home Setup: 2 [address], 2 level home, bedroom on 1st level, bathroom available on 1st level, has a tub shower downstairs. DME:none Baseline ADL/Mobility: Pt reports he was independent w/ aDL's and IADL's, had worked for a [employer]. He enjoys hunting and fishing. He reports he likes [employer] music (when asked) Precautions/Special Considerations: at risk [...] oriented to: person, thought he was at [facility] (reoriented to ), when asked the [...] and measurable assessment of functional outcome. 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 All Active TF Orders: Peptamen Intense VHP [...] Other Sites: Wound vac Relevant medications: shift CALENDERING MACHINE OPERATOR, D10 at 100ml/hr, colace, marinol, folic acid, [...] encounter: 116.7 kg (257 lb 4.4 oz). [place] Body Weight: 81 kg Usual Body Weight: [...] sedation and extubated. 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 TF frequently held for OR, have not advanced past trickle TF. TF d/c today, no access at this time. 01/25: Patient intubated and sedated. Pt to OR today for wound vacs. 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 2011; 36(3): 273-04) Nutrition to continue to follow up while inpatient Thank you, Charlotte Castañeda RD Pager #:[phone] Meghan Prabhakar, PT - 01/29/2022 10:35 AM [...] 2.7) performed by Sigifredo Garcia MD at [facility] MAIN OR ? ? PRO DEBRIDEMENT MUSCLE AND FASCIA 20 SQ CM/< Left 01/26/2022 DEBRIDEMENT SKIN, SUBCU, MUSCLE, UPPER EXTREMITY (WRVU 2.7) performed by Sigifredo Garcia MD at [facility] MAIN OR ??? PRO DECOMP FOREARM, 2 COMPART, W/O DEBRIDE Left 01/23/2022 FASCIOTOMY; FOREARM AND\OR WRIST, FLEXOR & EXTENS. COMP (WRVU 10.79) performed by Sigifredo Garcia MD at [facility] MAIN OR ??? PRO DECOMPRESS ANT/LAT+POST LEG CMPART Left 01/23/2022 FASCIOTOMY, LOWER LEG, ALL COMPARTMENTS (WRVU 7.82) performed by Sigifredo Garcia MD at [facility] MAIN OR ??? PRO INCIS OF HIP/THIGH FASCIA Left 01/23/2022 @FASCIOTOMY,THIGH OR HIP FOR COMPARTMENT SYNDROME (WRVU 12.89) performed by Sigifredo Garcia MD at [facility] MAIN OR ??? PRO OPEN TREAT MANDIBLE CONDYLE FX, COMPL 04/27/2013 OPEN TREATMENT, COMPLEX MANDIBLE FX., MULTI APPROACH, W/ FIXATION performed by Kishore Neil MD at [facility] MAIN OR ??? PRO REVISE MEDIAN N/CARPAL TUNNEL SURG Left 01/23/2022 MEDIAN NERVE DECOMPRESSION (CARPAL TUNNEL RELEASE) (WRVU 4.97) performed by Sigifredo Garcia MD at [facility] MAIN OR ??? PRO SEC CLSR SURG WOUND/DEHSN EXTENSIVE/COMPLICATED Left 01/26/2022 SECONDARY CLOSURE SURGICAL WOUND OR DEHISCENCE, EXTENSIVE OR COMPLICATED, UPPER EXTREMITY (WRVU 12.04) performed by Sigifredo Garcia MD at [facility] MAIN OR Social History: Home setup: Pt lives with his father in a two level home with a couple [address]. Pt's bedroom and bathroom are on the first floor. The bathroom has a tub shower. Baseline Mobility/Prior level of function: Independent with mobility, ADLs and IADLs, drives, used to work for a [employer] company but is not currently working. Enjoys [...] self, hospital (but thinks he is at [facility]), and general situation but not specific [...] in this evaluation. Time IN / OUT: 8318-4562 Total Minutes, Physical Therapy: 43 (eval). Meghan Prabhakar, PT DPT 01/29/2022 Pager: [phone] Physical Therapy Inpatient Rehabilitation Department Alcira Dwyer [...] kg/m?? I/O last 3 completed shifts: In: 99764.3 [P.O.:1070; I.V.:8680.3; Other:40; NG/GT:394; IV Piggyback:303] Out: [...] Boykin MD - 01/29/2022 8:58 AM EDT [facility] STAFF PROGRESS NOTE SECTION OF PULMONARY [...] Section of Pulmonary & Critical Care Pager: [phone] Armando, Doc Martinez MD - 01/29/2022 6:56 [...] as appropriate. Meghan Prabhakar PT DPT Pager #[phone] 01/28/2022 Physical Therapy Rehabilitation Department Dai Duarte OT - 01/28/2022 11:28 AM EDT Occupational Therapy: 01/28/22 1127 Evaluation & Treatment Document Type contact Total Minutes, Occupational Therapy 0 Comment, Session Not Performed OT orders received/chart reviewed. Patient scheduled for the OR today. RN requested therapy hold for today. OT will follow up tomorrow Dai Duarte OTR/L Pager [phone] Alcira Dwyer MD - 01/28/2022 9:09 AM [...] kg/m?? I/O last 3 completed shifts: In: 74706.9 [P.O.:1150; I.V.:22392.9; NG/GT:1213; IV Piggyback:394] Out: 09188 [Urine:160; Other:59885] CBC Lab Results Component Value Date WBC [...] filter holiday overnight see if he will picket labor union his urine output. We can decide tomorrow if he is a candidate for shift therapy. It is possible that he will improve enough that he could be managed with diuretics. We will continue to follow Backer, Beck Boykin MD - 01/28/2022 9:07 AM EDT [facility] STAFF PROGRESS NOTE SECTION OF PULMONARY [...] Section of Pulmonary & Critical Care Pager: [phone] Parrish Esqueda MD - 01/28/2022 5:26 AM [...] per 24 hour Intake 9192.61 ml Output 44437 ml Net -1170.39 ml Body mass index [...] RN - 01/27/2022 9:16 PM EDTSummary: tele [facility] Images from the original note were not [...] 0620 01/24/22 0016 PHART 7.45 7.48* 7.48* [id number] 33* 29* 30* PO2ART 114* 68* 70* [id number] 22.4 21.1 22.0 Intake/Output Summary (Last 24 hours) at 01/28/2022 0703 Last data filed at 01/28/2022 0700 Gross per 24 hour Intake 9662.51 ml Output 95215 ml Net -1043.49 ml Output: Urine 70 mL For admission: +82118.1 mL Physical Exam: General: Awake, somewhat conversational [...] Procedure Component Value Units Date/Time MRSA PCR [[id number]] Collected: 01/24/22 1310 Lab Status: Final result Specimen: Nasopharyngeal Swab Updated: 01/25/22 2224 MRSA Result Negative MRSA Interp -- Negative for methicillin-resistant Staphylococcus aureus (MRSA) This test was performed using the [employer]?? Dx System and the Xpert MRSA Assay. The MRSA target DNA was not detected. The sample processing control and probe check were valid. The performance of this test was determined by the [facility] Molecular Pathology Laboratory. It has been cleared by the U.S. Food and Drug Administration for clinical use. Comment: [VERIFIED DATE]01.25.22 Verified By:Alfonso Soto (Electronic Signature) MRSA PCR [[id number]] Collected: 01/23/22 1247 Lab Status: Final result Specimen: Nasopharyngeal Swab Updated: 01/25/22 1023 MRSA Result Negative MRSA Interp -- Negative for methicillin-resistant Staphylococcus aureus (MRSA) This test was performed using the [employer]?? Dx System and the Xpert MRSA Assay. The MRSA target DNA was not detected. The sample processing control and probe check were valid. The performance of this test was determined by the [facility] Molecular Pathology [facility]. It has been cleared by the U.S. Food and Drug Administration for clinical use. Comment: [VERIFIED DATE]01.25.22 Verified By:Nora Shay (Electronic Signature) Lower Respiratory Culture Tracheal Aspirate [[id number]] (Abnormal) (Susceptibility) Collected: 01/23/22 1150 Lab Status: [...] Sensitive [1] Gentamicin is not appropriate for [place]-therapy. [2] Oxacillin (methicillin) susceptibility is a surrogate for the oral and parenteral cephalosporins, beta-lactam combination agents (amoxicillin-clavulanate, ampicillin-sulbactam and piperacillin-tazobactam) and carbapenem agents. It is NOT a surrogate for penicillin, ampicillin or piperacillin susceptibility. Linear View Blood culture [[id number]] Collected: 01/23/22 0600 Lab Status: Final result Specimen: Blood Updated: 01/28/22 0701 Blood Culture No growth at 5 days. Blood culture [[id number]] Collected: 01/23/22 0126 Lab Status: Final result Specimen: Blood Updated: 01/28/22 0701 Blood Culture No growth at 5 days. COVID-19 PCR [[id number]] (Abnormal) Collected: 01/23/22 0044 Lab Status: Final [...] diagnosis of COVID-19 is performed using the [employer] SARS-CoV-2 Assay as authorized by the FDA Emergency Use Authorization (EUA). This EUA assay is intended for In-vitro Diagnostic (IVD) use with respiratory specimens such as nasopharyngeal swabs collected from individuals during the acute phase of infection. This assay is performed based on the instructions for use provided by [employer] and additional guidance provided by CDC and FDA. Testing is performed in the [facility] within the Department of Pathology and Laboratory Medicine at [facility], certified under the Clinical Laboratory Improvement Amendments [...] fact sheets at the following FDA website: https://www.fda.gov/medical-devices/skxrieunpbt-soqqikr-8189-cdjyq-25-smzdvmzil- zlz-ftbqcsexfgtiuv-hpiitlo-devices/yqogo-pvwsvuoqryk-lbvw SARS-Cov-2 RNA Source Trach Asp MRSA PCR [[id number]] Collected: 01/23/22 0044 Lab Status: Final result [...] of this test was determined by the [facility] Molecular Pathology [facility]. It has been cleared [...] 28, 2022 Critical Care Green Team (pager [phone]) Alcira Dwyer MD - 01/27/2022 10:10 AM [...] kg/m?? I/O last 3 completed shifts: In: 34585.5 [I.V.:57847.5; NG/GT:319; IV Piggyback:236] Out: 8974 [Urine:105; Other:8864; [...] urine output but not significant Backer, Beck Byokin MD - 01/27/2022 9:35 AM EDT [facility] STAFF PROGRESS NOTE SECTION OF PULMONARY [...] Section of Pulmonary & Critical Care Pager: [phone] T Gail Long - 01/27/2022 6:14 AM [...] 0620 01/24/22 0016 PHART 7.45 7.48* 7.48* [id number] 33* 29* 30* PO2ART 114* 68* 70* [id number] 22.4 21.1 22.0 Intake/Output Summary (Last 24 hours) at 01/27/2022 0941 Last data filed at 01/27/2022 0900 Gross per 24 hour Intake 88091.32 ml Output 7421 ml Net 3034.32 ml [...] Procedure Component Value Units Date/Time MRSA PCR [[id number]] Collected: 01/24/22 1310 Lab Status: Final result [...] of this test was determined by the [facility] Molecular Pathology [facility]. It has been cleared by the U.S. Food and Drug Administration for clinical use. Comment: [VERIFIED DATE]01.25.22 Verified By:Alfonso Soto (Electronic Signature) MRSA PCR [[id number]] Collected: 01/23/22 1247 Lab Status: Final result [...] of this test was determined by the [facility] Pathology [facility]. It has been cleared by the U.S. Food and Drug Administration for clinical use. Comment: [VERIFIED DATE]01.25.22 Verified By:Nora Shay (Electronic Signature) Lower Respiratory Culture Tracheal Aspirate [[id number]] (Abnormal) (Susceptibility) Collected: 01/23/22 1150 Lab Status: [...] Sensitive [1] Gentamicin is not appropriate for [place]-therapy. [2] Oxacillin (methicillin) susceptibility is a surrogate for the oral and parenteral cephalosporins, beta-lactam combination agents (amoxicillin-clavulanate, ampicillin-sulbactam and piperacillin-tazobactam) and carbapenem agents. It is NOT a surrogate for penicillin, ampicillin or piperacillin susceptibility. Linear View Blood culture [[id number]] Collected: 01/23/22 0600 Lab Status: Preliminary result Specimen: Blood Updated: 01/27/22 0701 Blood Culture No growth at 4 days. Blood culture [[id number]] Collected: 01/23/22 0126 Lab Status: Preliminary result Specimen: Blood Updated: 01/27/22 0701 Blood Culture No growth at 4 days. COVID-19 PCR [[id number]] (Abnormal) Collected: 01/23/22 0044 Lab Status: Final [...] diagnosis of COVID-19 is performed using the [employer] m SARS-CoV-2 Assay as authorized by the FDA Emergency Use Authorization (EUA). This EUA assay is intended for In-vitro Diagnostic (IVD) use with respiratory specimens such as nasopharyngeal swabs collected from individuals during the acute phase of infection. This assay is performed based on the instructions for use provided by [employer] and additional guidance provided by CDC and FDA. Testing is performed in the [facility] within the Department of Pathology and Laboratory Medicine at [facility], certified under the Clinical Laboratory Improvement Amendments [...] fact sheets at the following FDA website: https://www.fda.gov/medical-devices/cgulzgexnyr-axikydh-2413-qixrz-40-igzgcryyq- yku-wnpjovocubnskm-zmxtfcq-devices/bbcxf-bilhinohufo-ilaz SARS-Cov-2 RNA Source Trach Asp MRSA PCR [[id number]] Collected: 01/23/22 0044 Lab Status: Final result [...] of this test was determined by the [facility] Molecular Pathology [facility]. It has been cleared [...] 0035 -- 4 Naso/Oral Tube 01/23/22 0059 [place] sump left nostril 01/23/22 0059 left nostril 4 Consults: ortho, neuro, ACS, wound, nephrology Decision Making: Code Status: Full Disposition: ICU Suggestions for changes: aGil Long January 27, 2022 Critical Care Green Team (pager [phone]) Parrish Esqueda MD - 01/27/2022 5:32 AM [...] (01/27/22 0125) ??? ketamine 0.5 mg/kg/hr (01/27/22 7896) ??? heparin (porcine) infusion 400 Units/hr (01/26/22 006) ??? bicarbonate CRRT with 4 mEq/L K+, [...] RN - 01/26/2022 8:25 PM EDTSummary: tele [facility] Images from the original note were [...] 0620 01/24/22 0016 PHART 7.45 7.48* 7.48* [id number] 33* 29* 30* PO2ART 114* 68* 70* [id number] 22.4 21.1 22.0 Intake/Output Summary (Last 24 [...] Procedure Component Value Units Date/Time MRSA PCR [[id number]] Collected: 01/24/22 1310 Lab Status: Final result Specimen: Nasopharyngeal Swab Updated: 01/25/222223 MRSA Result Negative MRSA Interp -- Negative for methicillin-resistant Staphylococcus aureus (MRSA) This test was performed using the [employer] Dx System and the Xpert MRSA Assay. The MRSA target DNA was not detected. The sample processing control and probe check were valid. The performance of this test was determined by the [facility] Pathology [facility]. It has been cleared by the U.S. Food and Drug Administration for clinical use. Comment: [VERIFIED DATE]01.25.22 Verified By:Alfonso Soto (Electronic Signature) MRSA PCR [[id number]] Collected: 01/23/22 1247 Lab Status: Final result Specimen: Nasopharyngeal Swab Updated: 01/25/22 1023 MRSA Result Negative MRSA Interp -- Negative for methicillin-resistant Staphylococcus aureus (MRSA) This test was performed using the [employer] Dx System and the Xpert MRSA Assay. The MRSA target DNA was not detected. The sample processing control and probe check were valid. The performance of this test was determined by the [facility] Pathology [facility]. It has been cleared by the U.S. Food and Drug Administration for clinical use. Comment: [VERIFIED DATE]01.25.22 Verified By:Nora Shay (Electronic Signature) Lower Respiratory Culture Tracheal Aspirate [[id number]] (Abnormal) (Susceptibility) Collected: 01/23/22 1150 Lab Status: [...] Sensitive [1] Gentamicin is not appropriate for [place]-therapy. [2] Oxacillin (methicillin) susceptibility is a surrogate for the oral and parenteral cephalosporins, beta-lactam combination agents (amoxicillin-clavulanate, ampicillin-sulbactam and piperacillin-tazobactam) and carbapenem agents. It is NOT a surrogate for penicillin, ampicillin or piperacillin susceptibility. Linear View Blood culture [[id number]] Collected: 01/23/22 0600 Lab Status: Preliminary result Specimen: Blood Updated: 01/26/22 0701 Blood Culture No growth at 3 days. Blood culture [[id number]] Collected: 01/23/22 0126 Lab Status: Preliminary result Specimen: Blood Updated: 01/26/22 0701 Blood Culture No growth at 3 days. COVID-19 PCR [[id number]] (Abnormal) Collected: 01/23/22 0044 Lab Status: Final [...] diagnosis of COVID-19 is performed using the [employer] m SARS-CoV-2 Assay as authorized by the FDA Emergency Use Authorization (EUA). This EUA assay is intended for In-vitro Diagnostic (IVD) use with respiratory specimens such as nasopharyngeal swabs collected from individuals during the acute phase of infection. This assay is performed based on the instructions for use provided by [employer] and additional guidance provided by [facility] and FDA. Testing is performed in the [facility] within the Department of Pathology and Laboratory Medicine at [facility], certified under the Clinical Laboratory Improvement Amendments [...] fact sheets at the following FDA website: https://www.fda.gov/medical-devices/bhwwwjvdqql-cicpccl-2392-nqmqp-36-vizlyvhhg- awh-jmvgtnxedeeeni-vgdqyno-devices/xmaxm-lhfaunnopze-dnwy SARS-Cov-2 RNA Source Trach Asp MRSA PCR [[id number]] Collected: 01/23/22 0044 Lab Status: Final result Specimen: Nasopharyngeal Swab Updated: 01/25/22 1024 MRSA Result Negative MRSA Interp -- Negative for methicillin-resistant Staphylococcus aureus (MRSA) This test was performed using the [employer] Dx System and the Xpert MRSA Assay. The MRSA target DNA was not detected. The sample processing control and probe check were valid. The performance of this test was determined by the [facility] Pathology Laboratory. It has been cleared [...] 0035 -- 3 Naso/Oral Tube 01/23/22 0059 [place] sump left nostril 01/23/22 0059 left nostril 3 ETT Airway 01/23/22 0116 01/23/22 0116 -- 3 Consults: ortho Decision Making: Code Status: Full Disposition: ICU Suggestions for changes: Gail Long January 26, 2022 Critical Care Green Team (pager [phone]) Nahed Fraser MD - 01/26/2022 11:32 AM [...] DamienerBeck MD - 01/26/2022 8:00 AM EDT [facility] STAFF PROGRESS NOTE SECTION OF PULMONARY [...] Section of Pulmonary & Critical Care Pager: [phone] Kris Dean MD - 01/26/2022 6:01 AM EDT ORTHOPAEDIC SURGERY INPATIENT PROGRESS NOTE Patient Name: Alix Holland Age: 31 y.o. Surgery/Issue: L forearm, thigh, buttock, leg compartment syndrome s/p fasciotomies Attending: Jose Date of surgery: 01/23/2022 SUBJECTIVE / INTERVAL HISTORY: Alix remains intubated and sedated, but per staff development coordinator rn he is moving bilateral upper and lower [...] Patient would occasionally take exceptionally large Vt's, [id number] >2 liters. This was not typical however, and for the majority of the [facility] patient was comfortable with MV support. [...] kg/m?? I/O last 3 completed shifts: In: 98603 [I.V.:9488; NG/GT:97; IV Piggyback:904] Out: 5394 [Urine:171; [...] Boykin MD - 01/25/2022 7:53 AM EDT [facility] STAFF PROGRESS NOTE SECTION OF PULMONARY [...] MICU Attending Pulmonary & Critical Care Pager: [phone] Kris Dean MD - 01/25/2022 5:55 AM EDT ORTHOPAEDIC SURGERY INPATIENT PROGRESS NOTE Patient Name: Alix Holland Age: 31 y.o. Surgery/Issue: L forearm, thigh, buttock, leg compartment syndrome s/p fasciotomies Attending: Jose Date of surgery: 01/23/2022 SUBJECTIVE / INTERVAL HISTORY: Alix remains intubated and sedated, but per staff development coordinator rn he is moving bilateral upper and lower [...] 1810 01/23/22 1156 PHART 7.48* 7.46* 7.43 [id number] 29* 31* 32* PO2ART 68* 79* 86 [id number] 21.1 21.5 20.8 Intake/Output Summary (Last 24 [...] Units Date/Time Lower Respiratory Culture Tracheal Aspirate [[id number]] (Abnormal) Collected: 01/23/22 1150 Lab Status: Preliminary result Specimen: Tracheal Aspirate Updated: 01/24/22 0848 Lower Respiratory Culture -- Many Staphylococcus aureus Few mixed bacterial morphotypes suggestive of normal upper respiratory yessy Gram Stain -- Many Neutrophils No squamous epithelial cells Moderate Gram Positive Cocci Blood culture [[id number]] Collected: 01/23/22 0600 Lab Status: Preliminary result Specimen: Blood Updated: 01/24/22 0701 Blood Culture No growth at 1 day. Blood culture [[id number]] Collected: 01/23/22 0126 Lab Status: Preliminary result Specimen: Blood Updated: 01/24/22 0701 Blood Culture No growth at 1 day. COVID-19 PCR [[id number]] (Abnormal) Collected: 01/23/22 0044 Lab Status: Final [...] diagnosis of COVID-19 is performed using the [employer] m SARS-CoV-2 Assay as authorized by the FDA Emergency Use Authorization (EUA). This EUA assay is intended for In-vitro Diagnostic (IVD) use with respiratory specimens such as nasopharyngeal swabs collected from individuals during the acute phase of infection. This assay is performed based on the instructions for use provided by [employer] and additional guidance provided by CDC and FDA. Testing is performed in the [facility] within the Department of Pathology and Laboratory Medicine at [facility], certified under the Clinical Laboratory Improvement Amendments [...] fact sheets at the following FDA website: https://www.fda.gov/medical-devices/xusylhatkti-hrebnzu-0536-pzvrt-33-akuoywuiw- gsq-qxuansowkiflqm-sonqsqu-devices/jspxr-dttswtavfls-pkne SARS-Cov-2 RNA Source Trach Asp ECG: Telemetry [...] who have questions please contact the health wound care center consultant that requested your imaging first. Head wo Contrast (Generic) (Exam End: 01/23/2022 3:58 AM) Impression Globi pallidi infarcts. Mild cerebral edema. Thank you for letting us participate in the care of this patient. If you are a health care provider and have any questions regarding this report, please contact the number below. For patients who have questions please contact the health wound care center consultant that requested your imaging first. Abdomen 1 [...] who have questions please contact the health wound care center consultant that requested your imaging first. Lower Extremity [...] who have questions please contact the health wound care center consultant that requested your imaging first. Chest wo [...] who have questions please contact the health wound care center consultant that requested your imaging first. Upper Extremity [...] who have questions please contact the health wound care center consultant that requested your imaging first. Forearm Left [...] who have questions please contact the health wound care center consultant that requested your imaging first. Chest One [...] who have questions please contact the health wound care center consultant that requested your imaging first. Femur 2 views Left (Generic) (Exam End: 01/23/2022 2:04 PM) Impression No significant osseous finding. Thank you for letting us participate in the care of this patient. If you are a health care provider and have any questions regarding this report, please contact the number below. For patients who have questions please contact the health wound care center consultant that requested your imaging first. Tibia Fibula Left (Generic) (Exam End: 01/23/2022 2:04 PM) Impression No bony abnormality seen. Thank you for letting us participate in the care of this patient. If you are a health care provider and have any questions regarding this report, please contact the number below. For patients who have questions please contact the health wound care center consultant that requested your imaging first. Chest One [...] who have questions please contact the health wound care center consultant that requested your imaging first. Assessment: Alix [...] 24, 2022 Critical Care Green Team (pager [phone]) Angelina Meek MD - 01/24/2022 3:02 PM EDT Nephrology Attending Procedure note: CRRT Alix Holland was seen and examined on CVVH. Data and chart reviewed. The case was discussed with the CCS team 31 y.o.??male?? presented to ICU having been found down at home conscious but then experienced jiu-wh-pdlhqpit cardiac arrest with ROSC, severe hyperkalemia, rhabdomyolysis, [...] treatment for lisinopril, GERD was brought to [facility] via EMS today after he was notedto have a cardiac arrest. He had a hospital admission at [facility] in Apr 2021 for angioedema. During that admission, he had initially presented at [facility] with facial and oropharyngeal swelling and had to be fibreoptically intubated in the OR. He was transferred to [facility] for further management and received treatment with [...] EMS was called and en route to [facility], he was noted to be in possible SVT. He was given narcan which did not help. The details are slightly uncertain/unclear. On arrival to [facility], he was noted to have a V. tach arrest for which she was shocked. He is lab work was consistent with hyperkalemia with a potassium of 7.8 for which she received multiple doses of sodium bicarbonate, calcium gluconate and insulin/D10 with improvement in potassium to5.4. He was also intubated at [facility] and was transferred to [facility] for further management. He was found to be COVID-positive at [facility]. On arrival to [facility], he was again noted to be hyperkalemic [...] to OSH and and after arrival to [facility], was weaned to minimal oxygen support. CT [...] eyes with verbal stimulus. Has followed commands. [facility] labs and studies: 01/24/2022 WBC 11.4 hemoglobin 14.8 hematocrit 41.7 platelets 136 ABG 7.4 03/29/1967 Sodium 136 potassium 4.4 chloride 103 [place] [address] Total bilirubin 0.5 AST 1181 ALT 682 [...] 0035 -- 1 Naso/Oral Tube 01/23/22 0059 [place] sump left nostril 01/23/22 0059 left nostril [...] on CRRT. Hg 14.8, CK remains elevated 78628. AFVSS, NAEON. No motor or sensory exam [...] SBT Protocol: Yes SBT: Not performed per ACCOUNT DEVELOPMENT MANAGER availability. Vent Settings: Ventilator Mode: PS/CPAP PEEP [...] >220,000 (H) 0 - 200 unit/L TSH [place] Result Value Ref Range TSH 7.69 (H) [...] Value Ref Range T&S only valid at [facility] Triglyceride Result Value Ref Range Triglycerides [...] mcL Appearance UA Cloudy (A) Clear Spec Nora UA >=1.030 (A) 1.006 - 1.030 Color [...] 2.5 - 4.5 mg/dL Blood Gas Arterial ([facility]) Result Value Ref Range pH Art 7.37 [...] Skin Integrity: WDL Ambu bag setup at [facility] Breath Sounds: coarse/diminished Secretions: [...] down at home conscious but then experienced [id number] cardiac arrest with ROSC, severe hyperkalemia, rhabdomyolysis, [...] had cardiac arrest enroute to [facility] ED for which Jitendra CPR was initiated. [...] -Tylenol, - salicylates, -ETOH. Upon arrival to [facility], pt intubated and ventilator-noncompliant. Ketamine boluses given [...] 01/23/22 0721 01/23/22 0125 PHART 7.37 7.32* [id number] 28* 33* PO2ART 96 68* KDY0FBT 15.7* 16.8* Intake/Output Summary (Last 24 hours) [...] who have questions please contact the health wound care center consultant that requested your imaging first. Head wo Contrast (Generic) (Exam End: 01/23/2022 3:58 AM) Impression Globi pallidi infarcts. Mild cerebral edema. Thank you for letting us participate in the care of this patient. If you are a health care provider and have any questions regarding this report, please contact the number below. For patients who have questions please contact the health wound care center consultant that requested your imaging first. Abdomen 1 [...] who have questions please contact the health wound care center consultant that requested your imaging first. Chest wo [...] who have questions please contact the health wound care center consultant that requested your imaging first. Upper Extremity [...] who have questions please contact the health wound care center consultant that requested your imaging first. Forearm Left [...] who have questions please contact the health wound care center consultant that requested your imaging first. Chest One [...] who have questions please contact the health wound care center consultant that requested your imaging first. Assessment: Alix [...] FiO2 weaned to 30% since admission to [facility]. He has also been febrile with Tmax [...] 23, 2022 Critical Care Green Team (pager [phone]) Tex Robles MD - 01/23/2022 8:22 AM EDT MICU STAFF ADMISSION NOTE Critical Care Medicine Author: Tex Robles MD Patient seen and examined on admission to the ICU. HPI Alix Holland is a 31 y.o. male with PMH of Polysubstance abuse including alcohol, HTN with prior treatment for lisinopril, GERD was brought to [facility] via EMS today after he was notedto have a cardiac arrest. He had a hospital admission at [facility] in Apr 2021 for angioedema. During that admission, he had initially presented at [facility] with facial and oropharyngeal swelling and had to be fibreoptically intubated in the OR. He was transferred to [facility] for further management and received treatment with [...] EMS was called and en route to [facility], he was noted to be in possible SVT. He was given narcan which did not help. The details are slightly uncertain/unclear. On arrival to [facility], he was noted to have a V. tach arrest for which she was shocked. He is lab work was consistent with hyperkalemia with a potassium of 7.8 for which she received multiple doses of sodium bicarbonate, calcium gluconate and insulin/D10 with improvement in potassium to5.4. He was also intubated at [facility] and was transferred to [facility] for further management. He was found to be COVID-positive at [facility]. On arrival to [facility], he was again noted to be hyperkalemic [...] to OSH and and after arrival to [facility], was weaned to minimal oxygen support. CT [...] done by CHRISTA today given COVID precautions. [facility] labs and studies: WBC 4.1 hemoglobin 17.6 [...] less than 1 Naso/Oral Tube 01/23/22 0059 [place] sump left nostril 01/23/22 0059 left nostril [...] Wen MD - 01/23/2022 4:37 AM EDT [facility] TeleICU Initial Assessment Note I established audio/visual communication with the patient's room, reviewed the eDH, and discussed the patient's case with transfer center and ICU fellow. History and Assessment: 31 y.o. male w/ PMHx of HTN, angioedema and polysubstance abuse (cocaine, EtOH and heroin) transferred from [facility] ED after having presented there with an yff-ex-rqsnlpbf arrest. He reportedly took fentanyl. EMS administered [...] Result Value CK, Total >220,000 (H) TSH [place] Result Value TSH 7.69 (H) ABO/Rh Typing [...] UA Negative Appearance UA Cloudy (A) Spec Nora UA >=1.030 (A) Color UA Brown (A) [...] arrest for which he is now at [facility] being treated. On exam primary team found [...] yet resuscitated, with elevated Hg 21.5, CK >591251, and K 7.6 which may be contributing to his nonpalpable pulse. His troponins remain elevatd at 0.43. I discussed with the primary team the importance of resuscitation. I discussed that without a patient that can participate in exam diagnosis of compartment syndrome can be more challenging, and we will therefore plan for [place] compartment check when patient back from CT [...] Santos MD - 03/15/2022 6:22 AM EDT [facility] General Surgery History and Physical ID: Alix [...] Arteriogram Lower Extremity 02/06/2022 Nicole Vivas MD [facility] INTERVENTIONL RAD ??? PRO DEBRIDEMENT BONE EA ADDL 20 SQCM 02/08/2022 EACH ADDITIONAL 20 SQ CM, OR PART THEREOF (WRVU 1.8) performed by Jeanette Chatterjee MD at [facility] ? ? PRO DEBRIDEMENT BONE MUSCLE &/FASCIA 20 SQ CM/< Left 01/29/2022 DEBRIDEMENT SKIN, SUBCU, MUSCLE, BONE, LOWER EXTREMITY (WRVU 4.1) performed by Tom Valdovinos MD [facility] MAIN OR ? ? PRO DEBRIDEMENT BONE MUSCLE &/FASCIA 20 SQ CM/< Left 01/31/2022 DEBRIDEMENT SKIN, SUBCU, MUSCLE, BONE, LOWER EXTREMITY (WRVU 4.1) performed by Jose Branch MD at [facility] MAIN OR ? ? PRO DEBRIDEMENT BONE MUSCLE &/FASCIA 20 SQ CM/< Left 01/31/2022 DEBRIDEMENT SKIN, SUBCU, MUSCLE, BONE UPPER EXTREMITY (WRVU 4.1) performed by Jose Branch MDat [facility] MAIN OR ? ? PRO DEBRIDEMENT BONE MUSCLE &/FASCIA 20 SQ CM/< Left 02/02/2022 DEBRIDEMENT SKIN, SUBCU, MUSCLE, BONE UPPER EXTREMITY (WRVU 4.1) performed by Hina Starks MD at [facility] OR ? ? PRO DEBRIDEMENT BONE MUSCLE &/FASCIA 20 SQ CM/< Left 02/02/2022 DEBRIDEMENT SKIN, SUBCU, MUSCLE, BONE, LOWER EXTREMITY (WRVU 4.1) performed by Hina Starks MD at [facility] OR ? ? PRO DEBRIDEMENT MUSCLE AND FASCIA 20 SQ CM/< Left 01/26/2022 DEBRIDEMENT SKIN, SUBCU, MUSCLE, LOWER EXTREMITY (WRVU 2.7) performed by Sigifredo Garcia MD at [facility] OR ? ? PRO DEBRIDEMENT MUSCLE AND FASCIA 20 SQ CM/< Left 01/26/2022 DEBRIDEMENT SKIN, SUBCU, MUSCLE, UPPER EXTREMITY (WRVU 2.7) performed by Sigifredo Garcia MD at [facility] OR ? ? PRO DEBRIDEMENT MUSCLE AND FASCIA 20 SQ CM/< Left 02/05/2022 DEBRIDEMENT SKIN, SUBCU, MUSCLE, LOWER EXTREMITY (WRVU 2.7) performed by Tom Valdovinos MD at [facility] OR ? ? PRO DEBRIDEMENT MUSCLE AND FASCIA 20 SQ CM/< Left 02/04/2022 DEBRIDEMENT SKIN, SUBCU, MUSCLE, LOWER EXTREMITY (WRVU 2.7) performed by Sigifredo Garcia MD at [facility] OR ? ? PRO DEBRIDEMENT MUSCLE AND FASCIA 20 SQ CM/< Left 02/15/2022 DEBRIDEMENT SKIN, SUBCU, MUSCLE, UPPER EXTREMITY (WRVU 2.7) performed by Jayme Armstrong MD at [facility] OR ? ? PRO DEBRIDEMENT MUSCLE AND FASCIA 20 SQ CM/< Left 02/19/2022 DEBRIDEMENT SKIN, SUBCU, MUSCLE, LOWER EXTREMITY (WRVU 2.7) performed by Jayme Armstrong MD at [facility] OR ? ? PRO DEBRIDEMENT MUSCLE AND FASCIA 20 SQ CM/< Left 02/22/2022 DEBRIDEMENT SKIN, SUBCU, MUSCLE, LOWER EXTREMITY (WRVU 2.7) performed by Parrish Betancourt MD at [facility] OR ? ? PRO DEBRIDEMENT MUSCLE AND FASCIA 20 SQ CM/< Left 02/24/2022 DEBRIDEMENT SKIN, SUBCU, MUSCLE, LOWER EXTREMITY (WRVU 2.7) performed by Parrish Betancourt MD at [facility] OR ? ? PRO DEBRIDEMENT MUSCLE AND FASCIA 20 SQ CM/< Left 02/26/2022 DEBRIDEMENT SKIN, SUBCU, MUSCLE, UPPER EXTREMITY (WRVU 2.7) performed by Parrish Betancourt MD at [facility] OR ? ? PRO DEBRIDEMENT SUBCUTANEOUS TISSUE 20 SQCM/< Left 02/04/2022 DEBRIDEMENT SKIN AND SUBCU, UPPER EXTREMITY (WRVU 1.01) performed by [facility] ? ? PRO DEBRIDEMENT SUBCUTANEOUS TISSUE 20 SQCM/< Left 02/08/2022 DEBRIDEMENT SKIN AND SUBCU, LOWER EXTREMITY (WRVU 1.01) performed by Jeanette Chatterjee MD at [facility] OR ? ? PRO DEBRIDEMENT SUBCUTANEOUS TISSUE 20 SQCM/< Left 02/09/2022 DEBRIDEMENT SKIN AND SUBCU, LOWER EXTREMITY (WRVU 1.01) performed by Jeanette Chatterjee MD at [facility] OR ? ? PRO DEBRIDEMENT SUBCUTANEOUS TISSUE 20 SQCM/< Left 02/11/2022 DEBRIDEMENT SKIN AND SUBCU, LOWER EXTREMITY (WRVU 1.01) performed by Parrish Betancourt MD at [facility] OR ? ? PRO DEBRIDEMENT SUBCUTANEOUS TISSUE 20 SQCM/< Left 02/13/2022 DEBRIDEMENT SKIN AND SUBCU, LOWER EXTREMITY (WRVU 1.01) performed by Jeanette Chatterjee MD at [facility] OR ? ? PRO DEBRIDEMENT SUBCUTANEOUS TISSUE 20 SQCM/< Left 02/15/2022 DEBRIDEMENT SKIN AND SUBCU, LOWER EXTREMITY (WRVU 1.01) performed by Jayme Armstrong MD at [facility] OR ? ? PRO DEBRIDEMENT SUBCUTANEOUS TISSUE 20 SQCM/< Left 02/17/2022 DEBRIDEMENT SKIN AND SUBCU, LOWER EXTREMITY (WRVU 1.01) performed by Jayme Armstrong MD at [facility] OR ??? PRO DECOMP FOREARM, 2 COMPART, W/O DEBRIDE Left 01/23/2022 FASCIOTOMY; FOREARM AND\OR WRIST, FLEXOR & EXTENS. COMP (WRVU 10.79) performed by Sigifredo Garcia MD at [facility] OR ??? PRO DECOMPRESS ANT/LAT+POST LEG CMPART Left 01/23/2022 FASCIOTOMY, LOWER LEG, ALL COMPARTMENTS (WRVU 7.82) performed by Sigifredo Garcia MD at [facility] OR ??? PRO DRESSING CHANGE UNDER ANESTHESIA Left 02/11/2022 DRESSING CHANGE (FOR OTHER THAN GALLOWAY) UNDER ANES., UPPER EXTREMITY (WRVU 0.86) performed by Parrish Betancourt MD at [facility] OR ??? PRO DRESSING CHANGE UNDER ANESTHESIA Left 02/13/2022 DRESSING CHANGE (FOR OTHER THAN GALLOWAY) UNDER ANES., UPPER EXTREMITY (WRVU 0.86) performed by Jeanette Chatterjee MD at [facility] OR ??? PRO DRESSING CHANGE UNDER ANESTHESIA Left 02/17/2022 DRESSING CHANGE (FOR OTHER THAN GALLOWAY) UNDER ANES., UPPER EXTREMITY (WRVU 0.86) performed by Jayme Armstrong MD at [facility] OR ??? PRO DRESSING CHANGE UNDER ANESTHESIA Left 02/19/2022 DRESSING CHANGE (FOR OTHER THAN GALLOWAY) UNDER ANES., UPPER EXTREMITY (WRVU 0.86) performed by Jayme Armstrong MD at [facility] OR ??? PRO DRESSING CHANGE UNDER ANESTHESIA Left 02/22/2022 DRESSING CHANGE (FOR OTHER THAN GALLOWAY) UNDER ANES., UPPER EXTREMITY (WRVU 0.86) performed by Parrish Betancourt MD at [facility] OR ??? PRO DRESSING CHANGE UNDER ANESTHESIA Left 02/24/2022 DRESSING CHANGE (FOR OTHER THAN GALLOWAY) UNDER ANES., UPPER EXTREMITY (WRVU 0.86) performed by Parrish Betancourt MD at [facility] OR ??? PRO DRESSING CHANGE UNDER ANESTHESIA Left 02/26/2022 DRESSING CHANGE (FOR OTHER THAN GALLOWAY) UNDER ANES., LOWER EXTREMITY (WRVU 0.86) performed by Parrish Betancourt MD at [facility] OR ??? PRO DRESSING CHANGE UNDER ANESTHESIA Left 02/26/2022 DRESSING CHANGE (FOR OTHER THAN GALLOWAY) UNDER ANES., UPPER EXTREMITY (WRVU 0.86) performed by Parrish Betancourt MD at [facility] OR ??? PRO DRESSING CHANGE UNDER ANESTHESIA Left 03/01/2022 DRESSING CHANGE (FOR OTHER THAN GALLOWAY) UNDER ANES., LOWER EXTREMITY (WRVU 0.86) performed by Willie Sanabria MD at [facility] OR ??? PRO DRESSING CHANGE UNDER ANESTHESIA N/A 03/01/2022 DRESSING CHANGE (FOR OTHER THAN GALLOWAY) UNDER ANES., UPPER EXTREMITY (WRVU 0.86) performed by Willie Sanabria MD at [facility] OR ??? PRO DRESSING CHANGE UNDER ANESTHESIA Left 03/13/2022 DRESSING CHANGE (FOR OTHER THAN GALLOWAY) UNDER ANES., UPPER EXTREMITY (WRVU 0.86) performed by Willie Sanabria MD at [facility] OR ??? PRO DRESSING CHANGE UNDER ANESTHESIA Left 03/13/2022 DRESSING CHANGE (FOR OTHER THAN GALLOWAY) UNDER ANES., LOWER EXTREMITY (WRVU 0.86) performed by Willie Sanabria MD at [facility] OR ? ? PRO I&D DEEP ABSCESS BURSA/HEMATOMA THIGH/KNEE REGION Left 02/06/2022 INCISION & DRAINAGE ABSCESS OR HEMATOMA, THIGH, KNEE SUPERFICIAL (WRVU 6.78) performed by Jayme Armstrong MD at [facility] OR ??? PRO INCIS OF HIP/THIGH FASCIA Left 01/23/2022 @FASCIOTOMY,THIGH OR HIP FOR COMPARTMENT SYNDROME (WRVU 12.89) performed by Sigifredo Garcia MD at [facility] OR ??? PRO NEGATIVE PRESSURE WOUND THERAPY, LESS THAN OR EQUAL TO 50 SQCM Left 02/05/2022 DRESSING CHANGE (VAC ASSISTED) UP TO 50SQ.CM (WRVU 0.55) performed by Orville Hennessy MD at [facility] OR ??? PRO NEGATIVE PRESSURE WOUND THERAPY, LESS THAN OR EQUAL TO 50 SQCM Left 02/05/2022 DRESSING CHANGE (VAC ASSISTED) UP TO 50SQ.CM (WRVU 0.55) performed by Tom Valdovinos MD at [facility] OR ??? PRO NEGATIVE PRESSURE WOUND THERAPY, LESS THAN OR EQUAL TO 50 SQCM Left 02/08/2022 DRESSING CHANGE (VAC ASSISTED) UP TO 50SQ.CM (WRVU 0.55) performed by Jeanette Chatterjee MD at [facility] OR ??? PRO NEGATIVE PRESSURE WOUND THERAPY, LESS THAN OR EQUAL TO 50 SQCM Left 03/03/2022 DRESSING CHANGE (VAC ASSISTED) UP TO 50SQ.CM (WRVU 0.55) performed by Willie Sanabria MD at [facility] MAIN OR ??? PRO OPEN TREAT MANDIBLE CONDYLE FX, COMPL 04/27/2013 OPEN TREATMENT, COMPLEX MANDIBLE FX., MULTI APPROACH, W/ FIXATION performed by Kishore Neil MD at [facility] MAIN OR ??? PRO REVISE MEDIAN N/CARPAL TUNNEL SURG Left 01/23/2022 MEDIAN NERVE DECOMPRESSION (CARPAL TUNNEL RELEASE) (WRVU 4.97) performed by Sigifredo Garcia MD at [facility] MAIN OR ??? PRO SEC CLSR SURG WOUND/DEHSN EXTENSIVE/COMPLICATED Left 01/26/2022 SECONDARY CLOSURE SURGICAL WOUND OR DEHISCENCE, EXTENSIVE OR COMPLICATED, UPPER EXTREMITY (WRVU 12.04) performed by Sigifredo Garcia MD at [facility] MAIN OR ??? PRO SKIN SUB GRAFT TRNK/ARM/LEG AREA UNDER 100SQCM EA ADL 25SQCM Left 03/10/2022 APPL SKIN SUB GRAFT TO LEGS, TO 100 SQ CM; EA ADD'L 25 SQ CM AREA (WRVU 0.33) performed by Parrish Betancourt MD at [facility] MAIN OR ??? PRO SKIN SUB GRAFT TRNK/ARM/LEG AREA UNDER 100SQCM EA ADL 25SQCM Left 03/10/2022 APPL SKIN SUB GRAFT TO ARMS, TO 100 SQ CM; EA ADD'L 25 SQ CM AREA (WRVU 0.33) performed by Parrish Betancourt MD at [facility] MAIN OR Current Facility-Administered Medications: ??? MEROpenem (Merrem) 1 g vial attach to sodium chloride 0.9% 100 mL Mini-Bag Plus, 1 g, Intravenous, Q8H, Nancy Chahal MD, Stopped at 03/15/22 0210 ??? vancomycin (Vancocin) capsule 125 mg, 125 mg, Oral, BID, Floridalma Sandoval MD, 125 mg at 03/14/22 1873 ??? vancomycin (Vancocin) 1 gram in sodium [...] mg/mL) in sodium chloride 0.9% 50 mL SCREEN TENDER infusion, , Intravenous, SCREEN TENDER Only, Jareth Alonzo MD, 50 mg at [...] Q1 Min PRN, Kinjal Alonzo MD ??? SCREEN TENDER hutton, , Intravenous, Continuous PRN, Jareth Alonzo MD ??? HYDROmorphone (mg) SCREEN TENDER shift total and Settings verification, , Intravenous, 2 Times Daily- SCREEN TENDER Shift Total, Jareth Alonzo MD ??? docusate sodium (Colace) capsule 100 mg, 100 mg, Oral, BID, Jareth Alonzo MD, 100 mg at 03/14/22 2147 ??? heparin (porcine) (5,000 units/1 mL) subcutaneous injection 5,000 Units, 5,000 Units, Subcutaneous, Q8H [place], Jareth Alonzo MD, 5,000 Units at 03/15/22 0069 ??? naloxone (Narcan) (0.4 mg/mL) injection 0.04 mg, 0.04 mg, Intravenous, Q5 Min PRN, Jareth Alonzo MD ??? ergocalciferoL (vitamin D2) (vitamin D2) capsule 50,000 Units, 50,000 Units, Oral, Weekly, Jaerth Alonzo MD, 50,000 Units at 03/14/22825 ??? [...] ready to proceed. - meropenem, vancomycin - [facility] Elaine Dos Santos MD 03/15/2022 Elaine Dos Santos MD - 03/10/2022 6:15 AM EDT [facility] General Surgery History and Physical Alix Holland [...] Arteriogram Lower Extremity 02/06/2022 Nicole Vivas MD [facility] INTERVENTIONL RAD ??? PRO DEBRIDEMENT BONE EA ADDL 20 SQCM 02/08/2022 EACH ADDITIONAL 20 SQ CM, OR PART THEREOF (WRVU 1.8) performed by Jeanette Chatterjee MD at [facility] ? ? PRO DEBRIDEMENT BONE MUSCLE &/FASCIA 20 SQ CM/< Left 01/29/2022 DEBRIDEMENT SKIN, SUBCU, MUSCLE, BONE, LOWER EXTREMITY (WRVU 4.1) performed by Tom Valdovinos MD [facility] MAIN OR ? ? PRO DEBRIDEMENT BONE MUSCLE &/FASCIA 20 SQ CM/< Left 01/31/2022 DEBRIDEMENT SKIN, SUBCU, MUSCLE, BONE, LOWER EXTREMITY (WRVU 4.1) performed by Jose Branch MD at [facility] MAIN OR ? ? PRO DEBRIDEMENT BONE MUSCLE &/FASCIA 20 SQ CM/< Left 01/31/2022 DEBRIDEMENT SKIN, SUBCU, MUSCLE, BONE UPPER EXTREMITY (WRVU 4.1) performed by Jose Branch MDat [facility] MAIN OR ? ? PRO DEBRIDEMENT BONE MUSCLE &/FASCIA 20 SQ CM/< Left 02/02/2022 DEBRIDEMENT SKIN, SUBCU, MUSCLE, BONE UPPER EXTREMITY (WRVU 4.1) performed by Hina Starks MD at [facility] MAIN OR ? ? PRO DEBRIDEMENT BONE MUSCLE &/FASCIA 20 SQ CM/< Left 02/02/2022 DEBRIDEMENT SKIN, SUBCU, MUSCLE, BONE, LOWER EXTREMITY (WRVU 4.1) performed by iHna Starks MD at [facility] MAIN OR ? ? PRO DEBRIDEMENT MUSCLE AND FASCIA 20 SQ CM/< Left 01/26/2022 DEBRIDEMENT SKIN, SUBCU, MUSCLE, LOWER EXTREMITY (WRVU 2.7) performed by Sigifredo Garcia MD at [facility] MAIN OR ? ? PRO DEBRIDEMENT MUSCLE AND FASCIA 20 SQ CM/< Left 01/26/2022 DEBRIDEMENT SKIN, SUBCU, MUSCLE, UPPER EXTREMITY (WRVU 2.7) performed by Sigifredo Garcia MD at [facility] MAIN OR ? ? PRO DEBRIDEMENT MUSCLE AND FASCIA 20 SQ CM/< Left 02/05/2022 DEBRIDEMENT SKIN, SUBCU, MUSCLE, LOWER EXTREMITY (WRVU 2.7) performed by Tom Valdovinos MD at [facility] MAIN OR ? ? PRO DEBRIDEMENT MUSCLE AND FASCIA 20 SQ CM/< Left 02/04/2022 DEBRIDEMENT SKIN, SUBCU, MUSCLE, LOWER EXTREMITY (WRVU 2.7) [facility] [place] ? ? PRO DEBRIDEMENT MUSCLE AND FASCIA 20 SQ CM/< Left 02/15/2022 DEBRIDEMENT SKIN, SUBCU, MUSCLE, UPPER EXTREMITY (WRVU 2.7) performed by Jayme Armstrong MD at [facility] ? ? PRO DEBRIDEMENT MUSCLE AND FASCIA 20 SQ CM/< Left 02/19/2022 DEBRIDEMENT SKIN, SUBCU, MUSCLE, LOWER EXTREMITY (WRVU 2.7) performed by Jayme Armstrong MD at [facility] ? ? PRO DEBRIDEMENT MUSCLE AND FASCIA 20 SQ CM/< Left 02/22/2022 DEBRIDEMENT SKIN, SUBCU, MUSCLE, LOWER EXTREMITY (WRVU 2.7) performed by Parrish Betancourt MD at [facility] ? ? PRO DEBRIDEMENT MUSCLE AND FASCIA 20 SQ CM/< Left 02/24/2022 DEBRIDEMENT SKIN, SUBCU, MUSCLE, LOWER EXTREMITY (WRVU 2.7) performed by Parrish Betancourt MD at [facility] ? ? PRO DEBRIDEMENT MUSCLE AND FASCIA 20 SQ CM/< Left 02/26/2022 DEBRIDEMENT SKIN, SUBCU, MUSCLE, UPPER EXTREMITY (WRVU 2.7) performed by Parrish Betancourt MD at [facility] ? ? PRO DEBRIDEMENT SUBCUTANEOUS TISSUE 20 SQCM/< Left 02/04/2022 DEBRIDEMENT SKIN AND SUBCU, UPPER EXTREMITY (WRVU 1.01) performed by [facility]redo Garcia [facility] ? ? PRO DEBRIDEMENT SUBCUTANEOUS TISSUE 20 SQCM/< Left 02/08/2022 DEBRIDEMENT SKIN AND SUBCU, LOWER EXTREMITY (WRVU 1.01) performed by Jeanette Chatterjee MD at [facility] ? ? PRO DEBRIDEMENT SUBCUTANEOUS TISSUE 20 SQCM/< Left 02/09/2022 DEBRIDEMENT SKIN AND SUBCU, LOWER EXTREMITY (WRVU 1.01) performed by Jeanette Chatterjee MD at [facility] ? ? PRO DEBRIDEMENT SUBCUTANEOUS TISSUE 20 SQCM/< Left 02/11/2022 DEBRIDEMENT SKIN AND SUBCU, LOWER EXTREMITY (WRVU 1.01) performed by Parrish Betancourt MD at [facility] ? ? PRO DEBRIDEMENT SUBCUTANEOUS TISSUE 20 SQCM/< Left 02/13/2022 DEBRIDEMENT SKIN AND SUBCU, LOWER EXTREMITY (WRVU 1.01) performed by Jeanette Chatterjee MD at [facility] ? ? PRO DEBRIDEMENT SUBCUTANEOUS TISSUE 20 SQCM/< Left 02/15/2022 DEBRIDEMENT SKIN AND SUBCU, LOWER EXTREMITY (WRVU 1.01) performed by Jayme Armstrong MD at [facility] OR ? ? PRO DEBRIDEMENT SUBCUTANEOUS TISSUE 20 SQCM/< Left 02/17/2022 DEBRIDEMENT SKIN AND SUBCU, LOWER EXTREMITY (WRVU 1.01) performed by Jayme Armstrong MD at [facility] OR ??? PRO DECOMP FOREARM, 2 COMPART, W/O DEBRIDE Left 01/23/2022 FASCIOTOMY; FOREARM AND\OR WRIST, FLEXOR & EXTENS. COMP (WRVU 10.79) performed by Sigifredo Garcia MD at [facility] ??? PRO DECOMPRESS ANT/LAT+POST LEG CMPART Left 01/23/2022 FASCIOTOMY, LOWER LEG, ALL COMPARTMENTS (WRVU 7.82) performed by Sigifredo Garcia MD at [facility] ??? PRO DRESSING CHANGE UNDER ANESTHESIA Left 02/11/2022 DRESSING CHANGE (FOR OTHER THAN GALLOWAY) UNDER ANES., UPPER EXTREMITY (WRVU 0.86) performed by Parrish Betancourt MD at [facility] ??? PRO DRESSING CHANGE UNDER ANESTHESIA Left 02/13/2022 DRESSING CHANGE (FOR OTHER THAN GALLOWAY) UNDER ANES., UPPER EXTREMITY (WRVU 0.86) performed by Jeanette Chatterjee MD at [facility] ??? PRO DRESSING CHANGE UNDER ANESTHESIA Left 02/17/2022 DRESSING CHANGE (FOR OTHER THAN GALLOWAY) UNDER ANES., UPPER EXTREMITY (WRVU 0.86) performed by Jayme Armstrong MD at [facility] ??? PRO DRESSING CHANGE UNDER ANESTHESIA Left 02/19/2022 DRESSING CHANGE (FOR OTHER THAN GALLOWAY) UNDER ANES., UPPER EXTREMITY (WRVU 0.86) performed by Jayme Armstrong MD at [facility] ??? PRO DRESSING CHANGE UNDER ANESTHESIA Left 02/22/2022 DRESSING CHANGE (FOR OTHER THAN GALLOWAY) UNDER ANES., UPPER EXTREMITY (WRVU 0.86) performed by Parrish Betancourt MD at [facility] ??? PRO DRESSING CHANGE UNDER ANESTHESIA Left 02/24/2022 DRESSING CHANGE (FOR OTHER THAN GALLOWAY) UNDER ANES., UPPER EXTREMITY (WRVU 0.86) performed by Parrish Betancourt MD at [facility] ??? PRO DRESSING CHANGE UNDER ANESTHESIA Left 02/26/2022 DRESSING CHANGE (FOR OTHER THAN GALLOWAY) UNDER ANES., LOWER EXTREMITY (WRVU 0.86) performed by Parrish Betancourt MD at [facility] ??? PRO DRESSING CHANGE UNDER ANESTHESIA Left 02/26/2022 DRESSING CHANGE (FOR OTHER THAN GALLOWAY) UNDER ANES., UPPER EXTREMITY (WRVU 0.86) performed by Parrish Betancourt MD at [facility] ??? PRO DRESSING CHANGE UNDER ANESTHESIA Left 03/01/2022 DRESSING CHANGE (FOR OTHER THAN GALLOWAY) UNDER ANES., LOWER EXTREMITY (WRVU 0.86) performed by Willie Sanabria MD at [facility] ??? PRO DRESSING CHANGE UNDER ANESTHESIA N/A 03/01/2022 DRESSING CHANGE (FOR OTHER THAN GALLOWAY) UNDER ANES., UPPER EXTREMITY (WRVU 0.86) performed by Willie Sanabria MD at [facility] ? ? PRO I&D DEEP ABSCESS BURSA/HEMATOMA THIGH/KNEE REGION Left 02/06/2022 INCISION & DRAINAGE ABSCESS OR HEMATOMA, THIGH, KNEE SUPERFICIAL (WRVU 6.78) performed by Jayme Armstrong MD at [facility] ??? PRO INCIS OF HIP/THIGH FASCIA Left 01/23/2022 @FASCIOTOMY,THIGH OR HIP FOR COMPARTMENT SYNDROME (WRVU 12.89) performed by Sigifredo Garcia MD at [facility] ??? PRO NEGATIVE PRESSURE WOUND THERAPY, LESS THAN OR EQUAL TO 50 SQCM Left 02/05/2022 DRESSING CHANGE (VAC ASSISTED) UP TO 50SQ.CM (WRVU 0.55) performed by Orville Hennessy MD at [facility] ??? PRO NEGATIVE PRESSURE WOUND THERAPY, LESS THAN OR EQUAL TO 50 SQCM Left 02/05/2022 DRESSING CHANGE (VAC ASSISTED) UP TO 50SQ.CM (WRVU 0.55) performed by Tom Valdovinos MD at [facility] OR ??? PRO NEGATIVE PRESSURE WOUND THERAPY, LESS THAN OR EQUAL TO 50 SQCM Left 02/08/2022 DRESSING CHANGE (VAC ASSISTED) UP TO 50SQ.CM (WRVU 0.55) performed by Jeanette Chatterjee MD at [facility] ??? PRO NEGATIVE PRESSURE WOUND THERAPY, LESS THAN OR EQUAL TO 50 SQCM Left 03/03/2022 DRESSING CHANGE (VAC ASSISTED) UP TO 50SQ.CM (WRVU 0.55) performed by Willie Sanabria MD at [facility] ??? PRO OPEN TREAT MANDIBLE CONDYLE FX, COMPL 04/27/2013 OPEN TREATMENT, COMPLEX MANDIBLE FX., MULTI APPROACH, W/ FIXATION performed by Kishore Neil MD at [facility] ??? PRO REVISE MEDIAN N/CARPAL TUNNEL SURG Left 01/23/2022 MEDIAN NERVE DECOMPRESSION (CARPAL TUNNEL RELEASE) (WRVU 4.97) performed by Sigifredo Garcia MD at [facility] ??? PRO SEC CLSR SURG WOUND/DEHSN EXTENSIVE/COMPLICATED Left 01/26/2022 SECONDARY CLOSURE SURGICAL WOUND OR DEHISCENCE, EXTENSIVE OR COMPLICATED, UPPER EXTREMITY (WRVU 12.04) performed by Sigifredo Garcia MD at [facility] OR Current Facility-Administered Medications: ??? [...] Jenkins MD - 03/03/2022 4:42 AM EDT [facility] H&P HPI: Alix Holland??is a [...] change, LUE 03/01: washout and wound vac guide changer LUE, LLE and gluteal area. ? [...] Arteriogram Lower Extremity 02/06/2022 Nicole Vivas MD [facility] INTERVENTIONL RAD ??? PRO DEBRIDEMENT BONE EA ADDL 20 SQCM 02/08/2022 EACH ADDITIONAL 20 SQ CM, OR PART THEREOF (WRVU 1.8) performed by Jeanette Chatterjee MD at [facility] ? ? PRO DEBRIDEMENT BONE MUSCLE &/FASCIA 20 SQ CM/< Left 01/29/2022 DEBRIDEMENT SKIN, SUBCU, MUSCLE, BONE, LOWER EXTREMITY (WRVU 4.1) performed by Tom Valdovinos MD [facility] OR ? ? PRO DEBRIDEMENT BONE MUSCLE &/FASCIA 20 SQ CM/< Left 01/31/2022 DEBRIDEMENT SKIN, SUBCU, MUSCLE, BONE, LOWER EXTREMITY (WRVU 4.1) performed by Jose Branch MD at [facility] ? ? PRO DEBRIDEMENT BONE MUSCLE &/FASCIA 20 SQ CM/< Left 01/31/2022 DEBRIDEMENT SKIN, SUBCU, MUSCLE, BONE UPPER EXTREMITY (WRVU 4.1) performed by Jose Branch MDat [facility] ? ? PRO DEBRIDEMENT BONE MUSCLE &/FASCIA 20 SQ CM/< Left 02/02/2022 DEBRIDEMENT SKIN, SUBCU, MUSCLE, BONE UPPER EXTREMITY (WRVU 4.1) performed by Hina Starks MD at [facility] ? ? PRO DEBRIDEMENT BONE MUSCLE &/FASCIA 20 SQ CM/< Left 02/02/2022 DEBRIDEMENT SKIN, SUBCU, MUSCLE, BONE, LOWER EXTREMITY (WRVU 4.1) performed by Hina Starks MD at [facility] ? ? PRO DEBRIDEMENT MUSCLE AND FASCIA 20 SQ CM/< Left 01/26/2022 DEBRIDEMENT SKIN, SUBCU, MUSCLE, LOWER EXTREMITY (WRVU 2.7) performed by Sigifredo Garcia MD at [facility] ? ? PRO DEBRIDEMENT MUSCLE AND FASCIA 20 SQ CM/< Left 01/26/2022 DEBRIDEMENT SKIN, SUBCU, MUSCLE, UPPER EXTREMITY (WRVU 2.7) performed by Sigifredo Garcia MD at [facility] ? ? PRO DEBRIDEMENT MUSCLE AND FASCIA 20 SQ CM/< Left 02/05/2022 DEBRIDEMENT SKIN, SUBCU, MUSCLE, LOWER EXTREMITY (WRVU 2.7) performed by Tom Valdovinos MD at [facility] ? ? PRO DEBRIDEMENT MUSCLE AND FASCIA 20 SQ CM/< Left 02/04/2022 DEBRIDEMENT SKIN, SUBCU, MUSCLE, LOWER EXTREMITY (WRVU 2.7) performed by Sigifredo Garcia MD at [facility] OR ? ? PRO DEBRIDEMENT MUSCLE AND FASCIA 20 SQ CM/< Left 02/15/2022 DEBRIDEMENT SKIN, SUBCU, MUSCLE, UPPER EXTREMITY (WRVU 2.7) performed by Jayme Armstrong MD at [facility] ? ? PRO DEBRIDEMENT MUSCLE AND FASCIA 20 SQ CM/< Left 02/19/2022 DEBRIDEMENT SKIN, SUBCU, MUSCLE, LOWER EXTREMITY (WRVU 2.7) performed by Jayme Armstrong MD at [facility] ? ? PRO DEBRIDEMENT MUSCLE AND FASCIA 20 SQ CM/< Left 02/22/2022 DEBRIDEMENT SKIN, SUBCU, MUSCLE, LOWER EXTREMITY (WRVU 2.7) performed by Parrish Betancourt MD at [facility] ? ? PRO DEBRIDEMENT MUSCLE AND FASCIA 20 SQ CM/< Left 02/24/2022 DEBRIDEMENT SKIN, SUBCU, MUSCLE, LOWER EXTREMITY (WRVU 2.7) performed by Parrish Betancourt MD at [facility] ? ? PRO DEBRIDEMENT MUSCLE AND FASCIA 20 SQ CM/< Left 02/26/2022 DEBRIDEMENT SKIN, SUBCU, MUSCLE, UPPER EXTREMITY (WRVU 2.7) performed by Parrish Betancourt MD at [facility] ? ? PRO DEBRIDEMENT SUBCUTANEOUS TISSUE 20 SQCM/< Left 02/04/2022 DEBRIDEMENT SKIN AND SUBCU, UPPER EXTREMITY (WRVU 1.01) performed by Sig[facility]redo [facility] ? ? PRO DEBRIDEMENT SUBCUTANEOUS TISSUE 20 SQCM/< Left 02/08/2022 DEBRIDEMENT SKIN AND SUBCU, LOWER EXTREMITY (WRVU 1.01) performed by Jeanette Chatterjee MD at [facility] ? ? PRO DEBRIDEMENT SUBCUTANEOUS TISSUE 20 SQCM/< Left 02/09/2022 DEBRIDEMENT SKIN AND SUBCU, LOWER EXTREMITY (WRVU 1.01) performed by Jeanette Chatterjee MD at [facility] ? ? PRO DEBRIDEMENT SUBCUTANEOUS TISSUE 20 SQCM/< Left 02/11/2022 DEBRIDEMENT SKIN AND SUBCU, LOWER EXTREMITY (WRVU 1.01) performed by Parrish Betancourt MD at [facility] ? ? PRO DEBRIDEMENT SUBCUTANEOUS TISSUE 20 SQCM/< Left 02/13/2022 DEBRIDEMENT SKIN AND SUBCU, LOWER EXTREMITY (WRVU 1.01) performed by Jeanette Chatterjee MD at [facility] ? ? PRO DEBRIDEMENT SUBCUTANEOUS TISSUE 20 SQCM/< Left 02/15/2022 DEBRIDEMENT SKIN AND SUBCU, LOWER EXTREMITY (WRVU 1.01) performed by Jayme Armstrong MD at [facility] OR ? ? PRO DEBRIDEMENT SUBCUTANEOUS TISSUE 20 SQCM/< Left 02/17/2022 DEBRIDEMENT SKIN AND SUBCU, LOWER EXTREMITY (WRVU 1.01) performed by Jayme Armstrong MD at [facility] ??? PRO DECOMP FOREARM, 2 COMPART, W/O DEBRIDE Left 01/23/2022 FASCIOTOMY; FOREARM AND\OR WRIST, FLEXOR & EXTENS. COMP (WRVU 10.79) performed by Sigifredo Garcia MD at [facility] ??? PRO DECOMPRESS ANT/LAT+POST LEG CMPART Left 01/23/2022 FASCIOTOMY, LOWER LEG, ALL COMPARTMENTS (WRVU 7.82) performed by Sigifredo Garcia MD at [facility] ??? PRO DRESSING CHANGE UNDER ANESTHESIA Left 02/11/2022 DRESSING CHANGE (FOR OTHER THAN GALLOWAY) UNDER ANES., UPPER EXTREMITY (WRVU 0.86) performed by Parrish Betancourt MD at [facility] ??? PRO DRESSING CHANGE UNDER ANESTHESIA Left 02/13/2022 DRESSING CHANGE (FOR OTHER THAN GALLOWAY) UNDER ANES., UPPER EXTREMITY (WRVU 0.86) performed by Jeanette Chatterjee MD at [facility] ??? PRO DRESSING CHANGE UNDER ANESTHESIA Left 02/17/2022 DRESSING CHANGE (FOR OTHER THAN GALLOWAY) UNDER ANES., UPPER EXTREMITY (WRVU 0.86) performed by Jayme Armstrong MD at [facility] ??? PRO DRESSING CHANGE UNDER ANESTHESIA Left 02/19/2022 DRESSING CHANGE (FOR OTHER THAN GALLOWAY) UNDER ANES., UPPER EXTREMITY (WRVU 0.86) performed by Jayme Armstrong MD at [facility] ??? PRO DRESSING CHANGE UNDER ANESTHESIA Left 02/22/2022 DRESSING CHANGE (FOR OTHER THAN GALLOWAY) UNDER ANES., UPPER EXTREMITY (WRVU 0.86) performed by Parrish Betancourt MD at [facility] ??? PRO DRESSING CHANGE UNDER ANESTHESIA Left 02/24/2022 DRESSING CHANGE (FOR OTHER THAN GALLOWAY) UNDER ANES., UPPER EXTREMITY (WRVU 0.86) performed by Parrish Betancourt MD at [facility] ??? PRO DRESSING CHANGE UNDER ANESTHESIA Left 02/26/2022 DRESSING CHANGE (FOR OTHER THAN GALLOWAY) UNDER ANES., LOWER EXTREMITY (WRVU 0.86) performed by Parrish Betancourt MD at [facility] ??? PRO DRESSING CHANGE UNDER ANESTHESIA Left 02/26/2022 DRESSING CHANGE (FOR OTHER THAN GALLOWAY) UNDER ANES., UPPER EXTREMITY (WRVU 0.86) performed by Parrish Betancourt MD at [facility] ??? PRO DRESSING CHANGE UNDER ANESTHESIA Left 03/01/2022 DRESSING CHANGE (FOR OTHER THAN GALLOWAY) UNDER ANES., LOWER EXTREMITY (WRVU 0.86) performed by Willie Sanabria MD at [facility] ??? PRO DRESSING CHANGE UNDER ANESTHESIA N/A 03/01/2022 DRESSING CHANGE (FOR OTHER THAN GALLOWAY) UNDER ANES., UPPER EXTREMITY (WRVU 0.86) performed by Willie Sanabria MD at [facility] ? ? PRO I&D DEEP ABSCESS BURSA/HEMATOMA THIGH/KNEE REGION Left 02/06/2022 INCISION & DRAINAGE ABSCESS OR HEMATOMA, THIGH, KNEE SUPERFICIAL (WRVU 6.78) performed by Jayme Amrstrong MD at [facility] ??? PRO INCIS OF HIP/THIGH FASCIA Left 01/23/2022 @FASCIOTOMY,THIGH OR HIP FOR COMPARTMENT SYNDROME (WRVU 12.89) performed by Sigifredo Garcia MD at [facility] ??? PRO NEGATIVE PRESSURE WOUND THERAPY, LESS THAN OR EQUAL TO 50 SQCM Left 02/05/2022 DRESSING CHANGE (VAC ASSISTED) UP TO 50SQ.CM (WRVU 0.55) performed by Orville Hennessy MD at [facility] ??? PRO NEGATIVE PRESSURE WOUND THERAPY, LESS THAN OR EQUAL TO 50 SQCM Left 02/05/2022 DRESSING CHANGE (VAC ASSISTED) UP TO 50SQ.CM (WRVU 0.55) performed by Tom Valdovinos MD at [facility] ??? PRO NEGATIVE PRESSURE WOUND THERAPY, LESS THAN OR EQUAL TO 50 SQCM Left 02/08/2022 DRESSING CHANGE (VAC ASSISTED) UP TO 50SQ.CM (WRVU 0.55) performed by Jeanette Chatterjee MD at [facility] OR ??? PRO OPEN TREAT MANDIBLE CONDYLE FX, COMPL 04/27/2013 OPEN TREATMENT, COMPLEX MANDIBLE FX., MULTI APPROACH, W/ FIXATION performed by Kishore Neil MD at [facility] OR ??? PRO REVISE MEDIAN N/CARPAL TUNNEL SURG Left 01/23/2022 MEDIAN NERVE DECOMPRESSION (CARPAL TUNNEL RELEASE) (WRVU 4.97) performed by Sigifredo Garcia MD at [facility] OR ??? PRO SEC CLSR SURG WOUND/DEHSN EXTENSIVE/COMPLICATED Left 01/26/2022 SECONDARY CLOSURE SURGICAL WOUND OR DEHISCENCE, EXTENSIVE OR COMPLICATED, UPPER EXTREMITY (WRVU 12.04) performed by Sigifredo Garcia MD at [facility] OR MEDICATIONS: No current facility-administered [...] Jenkins MD - 03/01/2022 5:58 AM EDT [facility] Surgery H&P HPI and hospital [...] Arteriogram Lower Extremity 02/06/2022 Nicole Vivas MD [facility] INTERVENTIONL RAD ??? PRO DEBRIDEMENT BONE EA ADDL 20 SQCM 02/08/2022 EACH ADDITIONAL 20 SQ CM, OR PART THEREOF (WRVU 1.8) performed by Jeanette Chatterjee MD at [facility] ? ? PRO DEBRIDEMENT BONE MUSCLE &/FASCIA 20 SQ CM/< Left 01/29/2022 DEBRIDEMENT SKIN, SUBCU, MUSCLE, BONE, LOWER EXTREMITY (WRVU 4.1) performed by Tom Valdovinos MD [facility] MA[facility] OR ? ? PRO DEBRIDEMENT BONE MUSCLE &/FASCIA 20 SQ CM/< Left 01/31/2022 DEBRIDEMENT SKIN, SUBCU, MUSCLE, BONE, LOWER EXTREMITY (WRVU 4.1) performed by Jose Branch MD at [facility] OR ? ? PRO DEBRIDEMENT BONE MUSCLE &/FASCIA 20 SQ CM/< Left 01/31/2022 DEBRIDEMENT SKIN, SUBCU, MUSCLE, BONE UPPER EXTREMITY (WRVU 4.1) performed by Jose Branch MDat [facility] OR ? ? PRO DEBRIDEMENT BONE MUSCLE &/FASCIA 20 SQ CM/< Left 02/02/2022 DEBRIDEMENT SKIN, SUBCU, MUSCLE, BONE UPPER EXTREMITY (WRVU 4.1) performed by Hina Starks MD at [facility] OR ? ? PRO DEBRIDEMENT BONE MUSCLE &/FASCIA 20 SQ CM/< Left 02/02/2022 DEBRIDEMENT SKIN, SUBCU, MUSCLE, BONE, LOWER EXTREMITY (WRVU 4.1) performed by Hina Starks MD at [facility] OR ? ? PRO DEBRIDEMENT MUSCLE AND FASCIA 20 SQ CM/< Left 01/26/2022 DEBRIDEMENT SKIN, SUBCU, MUSCLE, LOWER EXTREMITY (WRVU 2.7) performed by Sigifredo Garcia MD at [facility] ? ? PRO DEBRIDEMENT MUSCLE AND FASCIA 20 SQ CM/< Left 01/26/2022 DEBRIDEMENT SKIN, SUBCU, MUSCLE, UPPER EXTREMITY (WRVU 2.7) performed by Sigifredo Garcia MD at [facility] ? ? PRO DEBRIDEMENT MUSCLE AND FASCIA 20 SQ CM/< Left 02/05/2022 DEBRIDEMENT SKIN, SUBCU, MUSCLE, LOWER EXTREMITY (WRVU 2.7) performed by Tom Valdovinos MD at [facility] ? ? PRO DEBRIDEMENT MUSCLE AND FASCIA 20 SQ CM/< Left 02/04/2022 DEBRIDEMENT SKIN, SUBCU, MUSCLE, LOWER EXTREMITY (WRVU 2.7) performed by Sigifredo Garcia MD at [facility] ? ? PRO DEBRIDEMENT MUSCLE AND FASCIA 20 SQ CM/< Left 02/15/2022 DEBRIDEMENT SKIN, SUBCU, MUSCLE, UPPER EXTREMITY (WRVU 2.7) performed by Jayme Armstrong MD at [facility] ? ? PRO DEBRIDEMENT MUSCLE AND FASCIA 20 SQ CM/< Left 02/19/2022 DEBRIDEMENT SKIN, SUBCU, MUSCLE, LOWER EXTREMITY (WRVU 2.7) performed by Jayme Armstrong MD at [facility] ? ? PRO DEBRIDEMENT MUSCLE AND FASCIA 20 SQ CM/< Left 02/22/2022 DEBRIDEMENT SKIN, SUBCU, MUSCLE, LOWER EXTREMITY (WRVU 2.7) performed by Parrish Betancourt MD at [facility] ? ? PRO DEBRIDEMENT MUSCLE AND FASCIA 20 SQ CM/< Left 02/24/2022 DEBRIDEMENT SKIN, SUBCU, MUSCLE, LOWER EXTREMITY (WRVU 2.7) performed by Parrish Betancourt MD at [facility] ? ? PRO DEBRIDEMENT MUSCLE AND FASCIA 20 SQ CM/< Left 02/26/2022 DEBRIDEMENT SKIN, SUBCU, MUSCLE, UPPER EXTREMITY (WRVU 2.7) performed by Parrish Betancourt MD at [facility] ? ? PRO DEBRIDEMENT SUBCUTANEOUS TISSUE 20 SQCM/< Left 02/04/2022 DEBRIDEMENT SKIN AND SUBCU, UPPER EXTREMITY (WRVU 1.01) performed by Sigifredo Garcia [facility] ? ? PRO DEBRIDEMENT SUBCUTANEOUS TISSUE 20 SQCM/< Left 02/08/2022 DEBRIDEMENT SKIN AND SUBCU, LOWER EXTREMITY (WRVU 1.01) performed by Jeanette Chatterjee MD at [facility] ? ? PRO DEBRIDEMENT SUBCUTANEOUS TISSUE 20 SQCM/< Left 02/09/2022 DEBRIDEMENT SKIN AND SUBCU, LOWER EXTREMITY (WRVU 1.01) performed by Jeanette Chatterjee MD at [facility] ? ? PRO DEBRIDEMENT SUBCUTANEOUS TISSUE 20 SQCM/< Left 02/11/2022 DEBRIDEMENT SKIN AND SUBCU, LOWER EXTREMITY (WRVU 1.01) performed by Parrish Betancourt MD at [facility] ? ? PRO DEBRIDEMENT SUBCUTANEOUS TISSUE 20 SQCM/< Left 02/13/2022 DEBRIDEMENT SKIN AND SUBCU, LOWER EXTREMITY (WRVU 1.01) performed by Jeanette Chatterjee MD at [facility] ? ? PRO DEBRIDEMENT SUBCUTANEOUS TISSUE 20 SQCM/< Left 02/15/2022 DEBRIDEMENT SKIN AND SUBCU, LOWER EXTREMITY (WRVU 1.01) performed by Jayme Armstrong MD at [facility] OR ? ? PRO DEBRIDEMENT SUBCUTANEOUS TISSUE 20 SQCM/< Left 02/17/2022 DEBRIDEMENT SKIN AND SUBCU, LOWER EXTREMITY (WRVU 1.01) performed by Jayme Armstrong MD at [facility] OR ??? PRO DECOMP FOREARM, 2 COMPART, W/O DEBRIDE Left 01/23/2022 FASCIOTOMY; FOREARM AND\OR WRIST, FLEXOR & EXTENS. COMP (WRVU 10.79) performed by Sigifredo Garcia MD at [facility] ??? PRO DECOMPRESS ANT/LAT+POST LEG CMPART Left 01/23/2022 FASCIOTOMY, LOWER LEG, ALL COMPARTMENTS (WRVU 7.82) performed by Sigifredo Garcia MD at [facility] ??? PRO DRESSING CHANGE UNDER ANESTHESIA Left 02/11/2022 DRESSING CHANGE (FOR OTHER THAN GALLOWAY) UNDER ANES., UPPER EXTREMITY (WRVU 0.86) performed by Parrish Betancourt MD at [facility] ??? PRO DRESSING CHANGE UNDER ANESTHESIA Left 02/13/2022 DRESSING CHANGE (FOR OTHER THAN GALLOWAY) UNDER ANES., UPPER EXTREMITY (WRVU 0.86) performed by Jeanette Chatterjee MD at [facility] ??? PRO DRESSING CHANGE UNDER ANESTHESIA Left 02/17/2022 DRESSING CHANGE (FOR OTHER THAN GALLOWAY) UNDER ANES., UPPER EXTREMITY (WRVU 0.86) performed by Jayme Armstrong MD at [facility] ??? PRO DRESSING CHANGE UNDER ANESTHESIA Left 02/19/2022 DRESSING CHANGE (FOR OTHER THAN GALLOWAY) UNDER ANES., UPPER EXTREMITY (WRVU 0.86) performed by Jayme Armstrogn MD at [facility] ??? PRO DRESSING CHANGE UNDER ANESTHESIA Left 02/22/2022 DRESSING CHANGE (FOR OTHER THAN GALLOWAY) UNDER ANES., UPPER EXTREMITY (WRVU 0.86) performed by Parrish Betancourt MD at [facility] ??? PRO DRESSING CHANGE UNDER ANESTHESIA Left 02/24/2022 DRESSING CHANGE (FOR OTHER THAN GALLOWAY) UNDER ANES., UPPER EXTREMITY (WRVU 0.86) performed by Parrish Betancourt MD at [facility] OR ??? PRO DRESSING CHANGE UNDER ANESTHESIA Left 02/26/2022 DRESSING CHANGE (FOR OTHER THAN GALLOWAY) UNDER ANES., LOWER EXTREMITY (WRVU 0.86) performed by Parrish Betancourt MD at [facility] OR ??? PRO DRESSING CHANGE UNDER ANESTHESIA Left 02/26/2022 DRESSING CHANGE (FOR OTHER THAN GALLOWAY) UNDER ANES., UPPER EXTREMITY (WRVU 0.86) performed by Parrish Betancourt MD at [facility] OR ? ? PRO I&D DEEP ABSCESS BURSA/HEMATOMA THIGH/KNEE REGION Left 02/06/2022 INCISION & DRAINAGE ABSCESS OR HEMATOMA, THIGH, KNEE SUPERFICIAL (WRVU 6.78) performed by Jayme Armstrong MD at [facility] OR ??? PRO INCIS OF HIP/THIGH FASCIA Left 01/23/2022 @FASCIOTOMY,THIGH OR HIP FOR COMPARTMENT SYNDROME (WRVU 12.89) performed by Sigifredo Garcia MD at [facility] OR ??? PRO NEGATIVE PRESSURE WOUND THERAPY, LESS THAN OR EQUAL TO 50 SQCM Left 02/05/2022 DRESSING CHANGE (VAC ASSISTED) UP TO 50SQ.CM (WRVU 0.55) performed by Orville Hennessy MD at [facility] MAIN OR ??? PRO NEGATIVE PRESSURE WOUND THERAPY, LESS THAN OR EQUAL TO 50 SQCM Left 02/05/2022 DRESSING CHANGE (VAC ASSISTED) UP TO 50SQ.CM (WRVU 0.55) performed by Tom Valdovinos MD at [facility] MAIN OR ??? PRO NEGATIVE PRESSURE WOUND THERAPY, LESS THAN OR EQUAL TO 50 SQCM Left 02/08/2022 DRESSING CHANGE (VAC ASSISTED) UP TO 50SQ.CM (WRVU 0.55) performed by Jeanette Chatterjee MD at [facility] OR ??? PRO OPEN TREAT MANDIBLE CONDYLE FX, COMPL 04/27/2013 OPEN TREATMENT, COMPLEX MANDIBLE FX., MULTI APPROACH, W/ FIXATION performed by Kishore Neil MD at [facility] OR ??? PRO REVISE MEDIAN N/CARPAL TUNNEL SURG Left 01/23/2022 MEDIAN NERVE DECOMPRESSION (CARPAL TUNNEL RELEASE) (WRVU 4.97) performed by Sigifredo Garcia MD at [facility] MA[facility] OR ??? PRO SEC CLSR SURG WOUND/DEHSN EXTENSIVE/COMPLICATED Left 01/26/2022 SECONDARY CLOSURE SURGICAL WOUND OR DEHISCENCE, EXTENSIVE OR COMPLICATED, UPPER EXTREMITY (WRVU 12.04) performed by Sigifredo Garcia MD at [facility] MAIN OR MEDICATIONS: No current facility-administered [...] date: 01/23/2022 Attending Physician: Allison Kelly MD [facility] General Surgery History and Physical Alix Holland [...] Arteriogram Lower Extremity 02/06/2022 Nicole Vivas MD [facility] INTERVENTIONL RAD ??? PRO DEBRIDEMENT BONE EA ADDL 20 SQCM 02/08/2022 EACH ADDITIONAL 20 SQ CM, OR PART THEREOF (WRVU 1.8) performed by Jeanette Chatterjee MD at [facility] PAIGE ? ? PRO DEBRIDEMENT BONE MUSCLE &/FASCIA 20 SQ CM/< Left 01/29/2022 DEBRIDEMENT SKIN, SUBCU, MUSCLE, BONE, LOWER EXTREMITY (WRVU 4.1) performed by Tom Valdovinos MD [facility] MAIN OR ? ? PRO DEBRIDEMENT BONE MUSCLE &/FASCIA 20 SQ CM/< Left 01/31/2022 DEBRIDEMENT SKIN, SUBCU, MUSCLE, BONE, LOWER EXTREMITY (WRVU 4.1) performed by Jose Branch MD at [facility] MAIN OR ? ? PRO DEBRIDEMENT BONE MUSCLE &/FASCIA 20 SQ CM/< Left 01/31/2022 DEBRIDEMENT SKIN, SUBCU, MUSCLE, BONE UPPER EXTREMITY (WRVU 4.1) performed by Jose Branch MDat [facility] MAIN OR ? ? PRO DEBRIDEMENT BONE MUSCLE &/FASCIA 20 SQ CM/< Left 02/02/2022 DEBRIDEMENT SKIN, SUBCU, MUSCLE, BONE UPPER EXTREMITY (WRVU 4.1) performed by Hina Starks MD at [facility] OR ? ? PRO DEBRIDEMENT BONE MUSCLE &/FASCIA 20 SQ CM/< Left 02/02/2022 DEBRIDEMENT SKIN, SUBCU, MUSCLE, BONE, LOWER EXTREMITY (WRVU 4.1) performed by Hina Starks MD at [facility] OR ? ? PRO DEBRIDEMENT MUSCLE AND FASCIA 20 SQ CM/< Left 01/26/2022 DEBRIDEMENT SKIN, SUBCU, MUSCLE, LOWER EXTREMITY (WRVU 2.7) performed by Sigifredo Garcia MD at [facility] OR ? ? PRO DEBRIDEMENT MUSCLE AND FASCIA 20 SQ CM/< Left 01/26/2022 DEBRIDEMENT SKIN, SUBCU, MUSCLE, UPPER EXTREMITY (WRVU 2.7) performed by Sigifredo Garcia MD at [facility] MAIN OR ? ? PRO DEBRIDEMENT MUSCLE AND FASCIA 20 SQ CM/< Left 02/05/2022 DEBRIDEMENT SKIN, SUBCU, MUSCLE, LOWER EXTREMITY (WRVU 2.7) performed by Tom Valdovinos MD at [facility] OR ? ? PRO DEBRIDEMENT MUSCLE AND FASCIA 20 SQ CM/< Left 02/04/2022 DEBRIDEMENT SKIN, SUBCU, MUSCLE, LOWER EXTREMITY (WRVU 2.7) performed by Sigifredo Garcia MD at [facility] MAIN OR ? ? PRO DEBRIDEMENT MUSCLE AND FASCIA 20 SQ CM/< Left 02/15/2022 DEBRIDEMENT SKIN, SUBCU, MUSCLE, UPPER EXTREMITY (WRVU 2.7) performed by Jayme Armstrong MD at [facility] OR ? ? PRO DEBRIDEMENT MUSCLE AND FASCIA 20 SQ CM/< Left 02/19/2022 DEBRIDEMENT SKIN, SUBCU, MUSCLE, LOWER EXTREMITY (WRVU 2.7) performed by Jayme Armstrong MD at [facility] OR ? ? PRO DEBRIDEMENT MUSCLE AND FASCIA 20 SQ CM/< Left 02/22/2022 DEBRIDEMENT SKIN, SUBCU, MUSCLE, LOWER EXTREMITY (WRVU 2.7) performed by Parrish Betancourt MD at [facility] OR ? ? PRO DEBRIDEMENT MUSCLE AND FASCIA 20 SQ CM/< Left 02/24/2022 DEBRIDEMENT SKIN, SUBCU, MUSCLE, LOWER EXTREMITY (WRVU 2.7) performed by Parrish Betancourt MD at [facility] OR ? ? PRO DEBRIDEMENT SUBCUTANEOUS TISSUE 20 SQCM/< Left 02/04/2022 DEBRIDEMENT SKIN AND SUBCU, UPPER EXTREMITY (WRVU 1.01) [facility] ? ? PRO DEBRIDEMENT SUBCUTANEOUS TISSUE 20 SQCM/< Left 02/08/2022 DEBRIDEMENT SKIN AND SUBCU, LOWER EXTREMITY (WRVU 1.01) performed by Jeanette Chatterjee MD at [facility] OR ? ? PRO DEBRIDEMENT SUBCUTANEOUS TISSUE 20 SQCM/< Left 02/09/2022 DEBRIDEMENT SKIN AND SUBCU, LOWER EXTREMITY (WRVU 1.01) performed by Jeanette Chatterjee MD at [facility] OR ? ? PRO DEBRIDEMENT SUBCUTANEOUS TISSUE 20 SQCM/< Left 02/11/2022 DEBRIDEMENT SKIN AND SUBCU, LOWER EXTREMITY (WRVU 1.01) performed by Parrish Betancourt MD at [facility] OR ? ? PRO DEBRIDEMENT SUBCUTANEOUS TISSUE 20 SQCM/< Left 02/13/2022 DEBRIDEMENT SKIN AND SUBCU, LOWER EXTREMITY (WRVU 1.01) performed by Jeanette Chatterjee MD at [facility] OR ? ? PRO DEBRIDEMENT SUBCUTANEOUS TISSUE 20 SQCM/< Left 02/15/2022 DEBRIDEMENT SKIN AND SUBCU, LOWER EXTREMITY (WRVU 1.01) performed by Jayme Armstrong MD at [facility] OR ? ? PRO DEBRIDEMENT SUBCUTANEOUS TISSUE 20 SQCM/< Left 02/17/2022 DEBRIDEMENT SKIN AND SUBCU, LOWER EXTREMITY (WRVU 1.01) [facility] ??? PRO DECOMP FOREARM, 2 COMPART, W/O DEBRIDE Left 01/23/2022 FASCIOTOMY; FOREARM AND\OR WRIST, FLEXOR & EXTENS. COMP (WRVU 10.79) performed by Sigifredo Garcia MD at [facility] OR ??? PRO DECOMPRESS ANT/LAT+POST LEG CMPART Left 01/23/2022 FASCIOTOMY, LOWER LEG, ALL COMPARTMENTS (WRVU 7.82) performed by Sigifredo Garcia MD at [facility] OR ??? PRO DRESSING CHANGE UNDER ANESTHESIA Left 02/11/2022 DRESSING CHANGE (FOR OTHER THAN GALLOWAY) UNDER ANES., UPPER EXTREMITY (WRVU 0.86) performed by Parrish Betancourt MD at [facility] OR ??? PRO DRESSING CHANGE UNDER ANESTHESIA Left 02/13/2022 DRESSING CHANGE (FOR OTHER THAN GALLOWAY) UNDER ANES., UPPER EXTREMITY (WRVU 0.86) performed by Jeanette Chatterjee MD at [facility] OR ??? PRO DRESSING CHANGE UNDER ANESTHESIA Left 02/17/2022 DRESSING CHANGE (FOR OTHER THAN GALLOWAY) UNDER ANES., UPPER EXTREMITY (WRVU 0.86) performed by Jayme Armstrong MD at [facility] OR ??? PRO DRESSING CHANGE UNDER ANESTHESIA Left 02/19/2022 DRESSING CHANGE (FOR OTHER THAN GALLOWAY) UNDER ANES., UPPER EXTREMITY (WRVU 0.86) performed by Jayme Armstrong MD at [facility] OR ??? PRO DRESSING CHANGE UNDER ANESTHESIA Left 02/22/2022 DRESSING CHANGE (FOR OTHER THAN GALLOWAY) UNDER ANES., UPPER EXTREMITY (WRVU 0.86) performed by Parrish Betancourt MD at [facility] OR ??? PRO DRESSING CHANGE UNDER ANESTHESIA Left 02/24/2022 DRESSING CHANGE (FOR OTHER THAN GALLOWAY) UNDER ANES., UPPER EXTREMITY (WRVU 0.86) performed by Parrish Betancourt MD at [facility] OR ? ? PRO I&D DEEP ABSCESS BURSA/HEMATOMA THIGH/KNEE REGION Left 02/06/2022 INCISION & DRAINAGE ABSCESS OR HEMATOMA, THIGH, KNEE SUPERFICIAL (WRVU 6.78) performed by Jayme Armstrong MD at [facility] OR ??? PRO INCIS OF HIP/THIGH FASCIA Left 01/23/2022 @FASCIOTOMY,THIGH OR HIP FOR COMPARTMENT SYNDROME (WRVU 12.89) performed by Sigifredo Garcia MD at [facility] OR ??? PRO NEGATIVE PRESSURE WOUND THERAPY, LESS THAN OR EQUAL TO 50 SQCM Left 02/05/2022 DRESSING CHANGE (VAC ASSISTED) UP TO 50SQ.CM (WRVU 0.55) performed by Orvlile Hennessy MD at [facility] OR ??? PRO NEGATIVE PRESSURE WOUND THERAPY, LESS THAN OR EQUAL TO 50 SQCM Left 02/05/2022 DRESSING CHANGE (VAC ASSISTED) UP TO 50SQ.CM (WRVU 0.55) performed by Tom Valdovinos MD at [facility] OR ??? PRO NEGATIVE PRESSURE WOUND THERAPY, LESS THAN OR EQUAL TO 50 SQCM Left 02/08/2022 DRESSING CHANGE (VAC ASSISTED) UP TO 50SQ.CM (WRVU 0.55) performed by Jeanette Chatterjee MD at [facility] OR ??? PRO OPEN TREAT MANDIBLE CONDYLE FX, COMPL 04/27/2013 OPEN TREATMENT, COMPLEX MANDIBLE FX., MULTI APPROACH, W/ FIXATION performed by Kishore Neil MD at [facility] OR ??? PRO REVISE MEDIAN N/CARPAL TUNNEL SURG Left 01/23/2022 MEDIAN NERVE DECOMPRESSION (CARPAL TUNNEL RELEASE) (WRVU 4.97) performed by Sigifredo Garcia MD at [facility] OR ??? PRO SEC CLSR SURG WOUND/DEHSN EXTENSIVE/COMPLICATED Left 01/26/2022 SECONDARY CLOSURE SURGICAL WOUND OR DEHISCENCE, EXTENSIVE OR COMPLICATED, UPPER EXTREMITY (WRVU 12.04) performed by Sigifredo Garcia MD at [facility] OR Current Facility-Administered Medications: ??? epoetin salina-epbx (Retacrit) injection 20,000 units/mL 16,000 Units, 16,000 Units, Subcutaneous,Weekly, Nancy Chahal MD, 16,000 Units at 02/25/22 [id number] ??? amLODIPine (Norvasc) tablet 10 mg, 10 [...] date: 01/23/2022 Attending Physician: Allison Kelly MD [facility] General Surgery History and Physical Alix Holland [...] Arteriogram Lower Extremity 02/06/2022 Nicole Vivas MD [facility] INTERVENTIONL RAD ??? PRO DEBRIDEMENT BONE EA ADDL 20 SQCM 02/08/2022 EACH ADDITIONAL 20 SQ CM, OR PART THEREOF (WRVU 1.8) performed by Jeanette Chattejree MD at [facility] ? ? PRO DEBRIDEMENT BONE MUSCLE &/FASCIA 20 SQ CM/< Left 01/29/2022 DEBRIDEMENT SKIN, SUBCU, MUSCLE, BONE, LOWER EXTREMITY (WRVU 4.1) performed by Tom Valdovinos MD [facility] MAIN OR ? ? PRO DEBRIDEMENT BONE MUSCLE &/FASCIA 20 SQ CM/< Left 01/31/2022 DEBRIDEMENT SKIN, SUBCU, MUSCLE, BONE, LOWER EXTREMITY (WRVU 4.1) performed by Jose Branch MD at [facility] MAIN OR ? ? PRO DEBRIDEMENT BONE MUSCLE &/FASCIA 20 SQ CM/< Left 01/31/2022 DEBRIDEMENT SKIN, SUBCU, MUSCLE, BONE UPPER EXTREMITY (WRVU 4.1) performed by Jose Branch MDat [facility] MAIN OR ? ? PRO DEBRIDEMENT BONE MUSCLE &/FASCIA 20 SQ CM/< Left 02/02/2022 DEBRIDEMENT SKIN, SUBCU, MUSCLE, BONE UPPER EXTREMITY (WRVU 4.1) performed by Hina Starks MD at [facility] MAIN OR ? ? PRO DEBRIDEMENT BONE MUSCLE &/FASCIA 20 SQ CM/< Left 02/02/2022 DEBRIDEMENT SKIN, SUBCU, MUSCLE, BONE, LOWER EXTREMITY (WRVU 4.1) performed by Hina Starks MD at [facility] MAIN OR ? ? PRO DEBRIDEMENT MUSCLE AND FASCIA 20 SQ CM/< Left 01/26/2022 DEBRIDEMENT SKIN, SUBCU, MUSCLE, LOWER EXTREMITY (WRVU 2.7) performed by Sigifredo Garcia MD at [facility] OR ? ? PRO DEBRIDEMENT MUSCLE AND FASCIA 20 SQ CM/< Left 01/26/2022 DEBRIDEMENT SKIN, SUBCU, MUSCLE, UPPER EXTREMITY (WRVU 2.7) performed by Sigifredo Garcia MD at [facility] OR ? ? PRO DEBRIDEMENT MUSCLE AND FASCIA 20 SQ CM/< Left 02/05/2022 DEBRIDEMENT SKIN, SUBCU, MUSCLE, LOWER EXTREMITY (WRVU 2.7) performed by Tom Valdovinos MD at [facility] OR ? ? PRO DEBRIDEMENT MUSCLE AND FASCIA 20 SQ CM/< Left 02/04/2022 DEBRIDEMENT SKIN, SUBCU, MUSCLE, LOWER EXTREMITY (WRVU 2.7) performed by Sigifredo Garcia MD at [facility] OR ? ? PRO DEBRIDEMENT MUSCLE AND FASCIA 20 SQ CM/< Left 02/15/2022 DEBRIDEMENT SKIN, SUBCU, MUSCLE, UPPER EXTREMITY (WRVU 2.7) performed by Jayme Armstrong MD at [facility] OR ? ? PRO DEBRIDEMENT MUSCLE AND FASCIA 20 SQ CM/< Left 02/19/2022 DEBRIDEMENT SKIN, SUBCU, MUSCLE, LOWER EXTREMITY (WRVU 2.7) performed by Jayme Armstrong MD at [facility] OR ? ? PRO DEBRIDEMENT MUSCLE AND FASCIA 20 SQ CM/< Left 02/22/2022 DEBRIDEMENT SKIN, SUBCU, MUSCLE, LOWER EXTREMITY (WRVU 2.7) performed by Parrish Betancourt MD at [facility] OR ? ? PRO DEBRIDEMENT SUBCUTANEOUS TISSUE 20 SQCM/< Left 02/04/2022 DEBRIDEMENT SKIN AND SUBCU, UPPER EXTREMITY (WRVU 1.01) [facility] ? ? PRO DEBRIDEMENT SUBCUTANEOUS TISSUE 20 SQCM/< Left 02/08/2022 DEBRIDEMENT SKIN AND SUBCU, LOWER EXTREMITY (WRVU 1.01) performed by Jeanette Chatterjee MD at [facility] OR ? ? PRO DEBRIDEMENT SUBCUTANEOUS TISSUE 20 SQCM/< Left 02/09/2022 DEBRIDEMENT SKIN AND SUBCU, LOWER EXTREMITY (WRVU 1.01) performed by Jeanette Chatterjee MD at [facility] OR ? ? PRO DEBRIDEMENT SUBCUTANEOUS TISSUE 20 SQCM/< Left 02/11/2022 DEBRIDEMENT SKIN AND SUBCU, LOWER EXTREMITY (WRVU 1.01) performed by Parrish Betancourt MD at [facility] OR ? ? PRO DEBRIDEMENT SUBCUTANEOUS TISSUE 20 SQCM/< Left 02/13/2022 DEBRIDEMENT SKIN AND SUBCU, LOWER EXTREMITY (WRVU 1.01) performed by Jeanette Chatterjee MD at [facility] OR ? ? PRO DEBRIDEMENT SUBCUTANEOUS TISSUE 20 SQCM/< Left 02/15/2022 DEBRIDEMENT SKIN AND SUBCU, LOWER EXTREMITY (WRVU 1.01) performed by Jayme Armstrong MD at [facility] OR ? ? PRO DEBRIDEMENT SUBCUTANEOUS TISSUE 20 SQCM/< Left 02/17/2022 DEBRIDEMENT SKIN AND SUBCU, LOWER EXTREMITY (WRVU 1.01) performed by Jayme Armstrong MD at [facility] OR ??? PRO DECOMP FOREARM, 2 COMPART, W/O DEBRIDE Left 01/23/2022 FASCIOTOMY; FOREARM AND\OR WRIST, FLEXOR & EXTENS. COMP (WRVU 10.79) performed by Sigifredo Garcia MD at [facility] OR ??? PRO DECOMPRESS ANT/LAT+POST LEG CMPART Left 01/23/2022 FASCIOTOMY, LOWER LEG, ALL COMPARTMENTS (WRVU 7.82) performed by Sigifredo Garcia MD at [facility] OR ??? PRO DRESSING CHANGE UNDER ANESTHESIA Left 02/11/2022 DRESSING CHANGE (FOR OTHER THAN GALLOWAY) UNDER ANES., UPPER EXTREMITY (WRVU 0.86) performed by Parrish Betancourt MD at [facility] OR ??? PRO DRESSING CHANGE UNDER ANESTHESIA Left 02/13/2022 DRESSING CHANGE (FOR OTHER THAN GALLOWAY) UNDER ANES., UPPER EXTREMITY (WRVU 0.86) performed by Jeanette Chatterjee MD at [facility] OR ??? PRO DRESSING CHANGE UNDER ANESTHESIA Left 02/17/2022 DRESSING CHANGE (FOR OTHER THAN GALLOWAY) UNDER ANES., UPPER EXTREMITY (WRVU 0.86) performed by Jayme Armstrong MD at [facility] OR ??? PRO DRESSING CHANGE UNDER ANESTHESIA Left 02/19/2022 DRESSING CHANGE (FOR OTHER THAN GALLOWAY) UNDER ANES., UPPER EXTREMITY (WRVU 0.86) performed by Jayme Armstrong MD at [facility] MAIN OR ??? PRO DRESSING CHANGE UNDER ANESTHESIA Left 02/22/2022 DRESSING CHANGE (FOR OTHER THAN GALLOWAY) UNDER ANES., UPPER EXTREMITY (WRVU 0.86) performed by Parrish Betancourt MD at [facility] MAIN OR ? ? PRO I&D DEEP ABSCESS BURSA/HEMATOMA THIGH/KNEE REGION Left 02/06/2022 INCISION & DRAINAGE ABSCESS OR HEMATOMA, THIGH, KNEE SUPERFICIAL (WRVU 6.78) performed by Jayme Armstrong MD at [facility] OR ??? PRO INCIS OF HIP/THIGH FASCIA Left 01/23/2022 @FASCIOTOMY,THIGH OR HIP FOR COMPARTMENT SYNDROME (WRVU 12.89) performed by Sigifredo Garcia MD at [facility] OR ??? PRO NEGATIVE PRESSURE WOUND THERAPY, LESS THAN OR EQUAL TO 50 SQCM Left 02/05/2022 DRESSING CHANGE (VAC ASSISTED) UP TO 50SQ.CM (WRVU 0.55) performed by Orville Hennessy MD at [facility] OR ??? PRO NEGATIVE PRESSURE WOUND THERAPY, LESS THAN OR EQUAL TO 50 SQCM Left 02/05/2022 DRESSING CHANGE (VAC ASSISTED) UP TO 50SQ.CM (WRVU 0.55) performed by Tom Valdovinos MD at [facility] OR ??? PRO NEGATIVE PRESSURE WOUND THERAPY, LESS THAN OR EQUAL TO 50 SQCM Left 02/08/2022 DRESSING CHANGE (VAC ASSISTED) UP TO 50SQ.CM (WRVU 0.55) performed by Jeanette Chatterjee MD at [facility] OR ??? PRO OPEN TREAT MANDIBLE CONDYLE FX, COMPL 04/27/2013 OPEN TREATMENT, COMPLEX MANDIBLE FX., MULTI APPROACH, W/ FIXATION performed by Kishore Neil MD at [facility] OR ??? PRO REVISE MEDIAN N/CARPAL TUNNEL SURG Left 01/23/2022 MEDIAN NERVE DECOMPRESSION (CARPAL TUNNEL RELEASE) (WRVU 4.97) performed by Sigifredo Garcia MD at [facility] OR ??? PRO SEC CLSR SURG WOUND/DEHSN [...] date: 01/23/2022 Attending Physician: Gela Novak MD [facility] General Surgery History and Physical Alix Holland [...] Arteriogram Lower Extremity 02/06/2022 Nicole Vivas MD [facility] INTERVENTIONL RAD ??? PRO DEBRIDEMENT BONE EA ADDL 20 SQCM 02/08/2022 EACH ADDITIONAL 20 SQ CM, OR PART THEREOF (WRVU 1.8) performed by Jeanette Chatterjee MD at [facility] ? ? PRO DEBRIDEMENT BONE MUSCLE &/FASCIA 20 SQ CM/< Left 01/29/2022 DEBRIDEMENT SKIN, SUBCU, MUSCLE, BONE, LOWER EXTREMITY (WRVU 4.1) performed by Tom Valdovinos MD [facility] MAIN OR ? ? PRO DEBRIDEMENT BONE MUSCLE &/FASCIA 20 SQ CM/< Left 01/31/2022 DEBRIDEMENT SKIN, SUBCU, MUSCLE, BONE, LOWER EXTREMITY (WRVU 4.1) performed by Jose Branch MD at [facility] MAIN OR ? ? PRO DEBRIDEMENT BONE MUSCLE &/FASCIA 20 SQ CM/< Left 01/31/2022 DEBRIDEMENT SKIN, SUBCU, MUSCLE, BONE UPPER EXTREMITY (WRVU 4.1) performed by Jose Branch MDat [facility] MAIN OR ? ? PRO DEBRIDEMENT BONE MUSCLE &/FASCIA 20 SQ CM/< Left 02/02/2022 DEBRIDEMENT SKIN, SUBCU, MUSCLE, BONE UPPER EXTREMITY (WRVU 4.1) performed by Hina Starks MD at [facility] MAIN OR ? ? PRO DEBRIDEMENT BONE MUSCLE &/FASCIA 20 SQ CM/< Left 02/02/2022 DEBRIDEMENT SKIN, SUBCU, MUSCLE, BONE, LOWER EXTREMITY (WRVU 4.1) performed by Hina Starks MD at [facility] MAIN OR ? ? PRO DEBRIDEMENT MUSCLE AND FASCIA 20 SQ CM/< Left 01/26/2022 DEBRIDEMENT SKIN, SUBCU, MUSCLE, LOWER EXTREMITY (WRVU 2.7) performed by Sigifredo Garcia MD at [facility] MAIN OR ? ? PRO DEBRIDEMENT MUSCLE AND FASCIA 20 SQ CM/< Left 01/26/2022 DEBRIDEMENT SKIN, SUBCU, MUSCLE, UPPER EXTREMITY (WRVU 2.7) performed by Sigifredo Garcia MD at [facility] MAIN OR ? ? PRO DEBRIDEMENT MUSCLE AND FASCIA 20 SQ CM/< Left 02/05/2022 DEBRIDEMENT SKIN, SUBCU, MUSCLE, LOWER EXTREMITY (WRVU 2.7) performed by Tom Valdovinos MD at [facility] OR ? ? PRO DEBRIDEMENT MUSCLE AND FASCIA 20 SQ CM/< Left 02/04/2022 DEBRIDEMENT SKIN, SUBCU, MUSCLE, LOWER EXTREMITY (WRVU 2.7) performed by Sigifredo Garcia MD at [facility] OR ? ? PRO DEBRIDEMENT MUSCLE AND FASCIA 20 SQ CM/< Left 02/15/2022 DEBRIDEMENT SKIN, SUBCU, MUSCLE, UPPER EXTREMITY (WRVU 2.7) performed by Jayme Armstrong MD at [facility] OR ? ? PRO DEBRIDEMENT MUSCLE AND FASCIA 20 SQ CM/< Left 02/19/2022 DEBRIDEMENT SKIN, SUBCU, MUSCLE, LOWER EXTREMITY (WRVU 2.7) performed by Jayme Armstrong MD at [facility] OR ? ? PRO DEBRIDEMENT SUBCUTANEOUS TISSUE 20 SQCM/< Left 02/04/2022 DEBRIDEMENT SKIN AND SUBCU, UPPER EXTREMITY (WRVU 1.01) performed [facility] ? ? PRO DEBRIDEMENT SUBCUTANEOUS TISSUE 20 SQCM/< Left 02/08/2022 DEBRIDEMENT SKIN AND SUBCU, LOWER EXTREMITY (WRVU 1.01) performed by Jeanette Chatterjee MD at [facility] OR ? ? PRO DEBRIDEMENT SUBCUTANEOUS TISSUE 20 SQCM/< Left 02/09/2022 DEBRIDEMENT SKIN AND SUBCU, LOWER EXTREMITY (WRVU 1.01) performed by Jeanette Chatterjee MD at [facility] OR ? ? PRO DEBRIDEMENT SUBCUTANEOUS TISSUE 20 SQCM/< Left 02/11/2022 DEBRIDEMENT SKIN AND SUBCU, LOWER EXTREMITY (WRVU 1.01) performed by Parrish Betancourt MD at [facility] OR ? ? PRO DEBRIDEMENT SUBCUTANEOUS TISSUE 20 SQCM/< Left 02/13/2022 DEBRIDEMENT SKIN AND SUBCU, LOWER EXTREMITY (WRVU 1.01) performed by Jeanette Chatterjee MD at [facility] OR ? ? PRO DEBRIDEMENT SUBCUTANEOUS TISSUE 20 SQCM/< Left 02/15/2022 DEBRIDEMENT SKIN AND SUBCU, LOWER EXTREMITY (WRVU 1.01) performed by Jayme Armstrong MD at [facility] OR ? ? PRO DEBRIDEMENT SUBCUTANEOUS TISSUE 20 SQCM/< Left 02/17/2022 DEBRIDEMENT SKIN AND SUBCU, LOWER EXTREMITY (WRVU 1.01) [facility] ??? PRO DECOMP FOREARM, 2 COMPART, W/O DEBRIDE Left 01/23/2022 FASCIOTOMY; FOREARM AND\OR WRIST, FLEXOR & EXTENS. COMP (WRVU 10.79) performed by Sigifredo Garcia MD at [facility] OR ??? PRO DECOMPRESS ANT/LAT+POST LEG CMPART Left 01/23/2022 FASCIOTOMY, LOWER LEG, ALL COMPARTMENTS (WRVU 7.82) performed by Sigifredo Garcia MD at [facility] OR ??? PRO DRESSING CHANGE UNDER ANESTHESIA Left 02/11/2022 DRESSING CHANGE (FOR OTHER THAN GALLOWAY) UNDER ANES., UPPER EXTREMITY (WRVU 0.86) performed by Parrish Betancourt MD at [facility] OR ??? PRO DRESSING CHANGE UNDER ANESTHESIA Left 02/13/2022 DRESSING CHANGE (FOR OTHER THAN GALLOWAY) UNDER ANES., UPPER EXTREMITY (WRVU 0.86) performed by Jeanette Chatterjee MD at [facility] OR ??? PRO DRESSING CHANGE UNDER ANESTHESIA Left 02/17/2022 DRESSING CHANGE (FOR OTHER THAN GALLOWAY) UNDER ANES., UPPER EXTREMITY (WRVU 0.86) performed by Jayme Armstrong MD at [facility] OR ??? PRO DRESSING CHANGE UNDER ANESTHESIA Left 02/19/2022 DRESSING CHANGE (FOR OTHER THAN GALLOWAY) UNDER ANES., UPPER EXTREMITY (WRVU 0.86) performed by Jayme Armstrong MD at [facility] OR ? ? PRO I&D DEEP ABSCESS BURSA/HEMATOMA THIGH/KNEE REGION Left 02/06/2022 INCISION & DRAINAGE ABSCESS OR HEMATOMA, THIGH, KNEE SUPERFICIAL (WRVU 6.78) performed by Jayme Armstrong MD at [facility] OR ??? PRO INCIS OF HIP/THIGH FASCIA Left 01/23/2022 @FASCIOTOMY,THIGH OR HIP FOR COMPARTMENT SYNDROME (WRVU 12.89) performed by Sigifredo Garcia MD at [facility] OR ??? PRO NEGATIVE PRESSURE WOUND THERAPY, LESS THAN OR EQUAL TO 50 SQCM Left 02/05/2022 DRESSING CHANGE (VAC ASSISTED) UP TO 50SQ.CM (WRVU 0.55) performed by Orville Hennessy MD at [facility] MAIN OR ??? PRO NEGATIVE PRESSURE WOUND THERAPY, LESS THAN OR EQUAL TO 50 SQCM Left 02/05/2022 DRESSING CHANGE (VAC ASSISTED) UP TO 50SQ.CM (WRVU 0.55) performed by Tom Valdovinos MD at [facility] MAIN OR ??? PRO NEGATIVE PRESSURE WOUND THERAPY, LESS THAN OR EQUAL TO 50 SQCM Left 02/08/2022 DRESSING CHANGE (VAC ASSISTED) UP TO 50SQ.CM (WRVU 0.55) performed by Jeanette Chatterjee MD at [facility] MAIN OR ??? PRO OPEN TREAT MANDIBLE CONDYLE FX, COMPL 04/27/2013 OPEN TREATMENT, COMPLEX MANDIBLE FX., MULTI APPROACH, W/ FIXATION performed by Kishore Neil MD at [facility] OR ??? PRO REVISE MEDIAN N/CARPAL TUNNEL SURG Left 01/23/2022 MEDIAN NERVE DECOMPRESSION (CARPAL TUNNEL RELEASE) (WRVU 4.97) performed by Sigifredo Garcia MD at [facility] MAIN OR ??? PRO SEC CLSR SURG WOUND/DEHSN EXTENSIVE/COMPLICATED Left 01/26/2022 SECONDARY CLOSURE SURGICAL WOUND OR DEHISCENCE, EXTENSIVE OR COMPLICATED, UPPER EXTREMITY (WRVU 12.04) performed by Sigifredo Garcia MD at [facility] MAIN OR Current Facility-Administered Medications: ??? [...] date: 01/23/2022 Attending Physician: Gela Novak MD [facility] General Surgery History and Physical Alix Holland [...] Arteriogram Lower Extremity 02/06/2022 Nicole Vivas MD [facility] INTERVENTIONL RAD ??? PRO DEBRIDEMENT BONE EA ADDL 20 SQCM 02/08/2022 EACH ADDITIONAL 20 SQ CM, OR PART THEREOF (WRVU 1.8) performed by Jeanette Chatterjee MD at [facility] PAIGE ? ? PRO DEBRIDEMENT BONE MUSCLE &/FASCIA 20 SQ CM/< Left 01/29/2022 DEBRIDEMENT SKIN, SUBCU, MUSCLE, BONE, LOWER EXTREMITY (WRVU 4.1) performed by Tom Valdovinos MD [facility] MAIN OR ? ? PRO DEBRIDEMENT BONE MUSCLE &/FASCIA 20 SQ CM/< Left 01/31/2022 DEBRIDEMENT SKIN, SUBCU, MUSCLE, BONE, LOWER EXTREMITY (WRVU 4.1) performed by Jose Branch MD at [facility] MAIN OR ? ? PRO DEBRIDEMENT BONE MUSCLE &/FASCIA 20 SQ CM/< Left 01/31/2022 DEBRIDEMENT SKIN, SUBCU, MUSCLE, BONE UPPER EXTREMITY (WRVU 4.1) performed by Jose Branch MDat [facility] MAIN OR ? ? PRO DEBRIDEMENT BONE MUSCLE &/FASCIA 20 SQ CM/< Left 02/02/2022 DEBRIDEMENT SKIN, SUBCU, MUSCLE, BONE UPPER EXTREMITY (WRVU 4.1) performed by Hina Starks MD at [facility] MAIN OR ? ? PRO DEBRIDEMENT BONE MUSCLE &/FASCIA 20 SQ CM/< Left 02/02/2022 DEBRIDEMENT SKIN, SUBCU, MUSCLE, BONE, LOWER EXTREMITY (WRVU 4.1) performed by Hina Starks MD at [facility] MAIN OR ? ? PRO DEBRIDEMENT MUSCLE AND FASCIA 20 SQ CM/< Left 01/26/2022 DEBRIDEMENT SKIN, SUBCU, MUSCLE, LOWER EXTREMITY (WRVU 2.7) performed by Sigifredo Garcia MD at [facility] MAIN OR ? ? PRO DEBRIDEMENT MUSCLE AND FASCIA 20 SQ CM/< Left 01/26/2022 DEBRIDEMENT SKIN, SUBCU, MUSCLE, UPPER EXTREMITY (WRVU 2.7) performed by Sigifredo Garcia MD at [facility] OR ? ? PRO DEBRIDEMENT MUSCLE AND FASCIA 20 SQ CM/< Left 02/05/2022 DEBRIDEMENT SKIN, SUBCU, MUSCLE, LOWER EXTREMITY (WRVU 2.7) performed by Tom Valdovinos MD at [facility] OR ? ? PRO DEBRIDEMENT MUSCLE AND FASCIA 20 SQ CM/< Left 02/04/2022 DEBRIDEMENT SKIN, SUBCU, MUSCLE, LOWER EXTREMITY (WRVU 2.7) performed by Sigifredo Garcia MD at [facility] OR ? ? PRO DEBRIDEMENT MUSCLE AND FASCIA 20 SQ CM/< Left 02/15/2022 DEBRIDEMENT SKIN, SUBCU, MUSCLE, UPPER EXTREMITY (WRVU 2.7) performed by Jayme Armstrong MD at [facility] OR ? ? PRO DEBRIDEMENT SUBCUTANEOUS TISSUE 20 SQCM/< Left 02/04/2022 DEBRIDEMENT SKIN AND SUBCU, UPPER EXTREMITY (WRVU 1.01) performed [facility] ? ? PRO DEBRIDEMENT SUBCUTANEOUS TISSUE 20 SQCM/< Left 02/08/2022 DEBRIDEMENT SKIN AND SUBCU, LOWER EXTREMITY (WRVU 1.01) performed by Jeanette Chatterjee MD at [facility] OR ? ? PRO DEBRIDEMENT SUBCUTANEOUS TISSUE 20 SQCM/< Left 02/09/2022 DEBRIDEMENT SKIN AND SUBCU, LOWER EXTREMITY (WRVU 1.01) performed by Jeanette Chatterjee MD at [facility] OR ? ? PRO DEBRIDEMENT SUBCUTANEOUS TISSUE 20 SQCM/< Left 02/11/2022 DEBRIDEMENT SKIN AND SUBCU, LOWER EXTREMITY (WRVU 1.01) performed by Parrish Betancourt MD at [facility] OR ? ? PRO DEBRIDEMENT SUBCUTANEOUS TISSUE 20 SQCM/< Left 02/13/2022 DEBRIDEMENT SKIN AND SUBCU, LOWER EXTREMITY (WRVU 1.01) performed by Jeanette Chatterjee MD at [facility] OR ? ? PRO DEBRIDEMENT SUBCUTANEOUS TISSUE 20 SQCM/< Left 02/15/2022 DEBRIDEMENT SKIN AND SUBCU, LOWER EXTREMITY (WRVU 1.01) performed by Jayme Armstrong MD at [facility] OR ? ? PRO DEBRIDEMENT SUBCUTANEOUS TISSUE 20 SQCM/< Left 02/17/2022 DEBRIDEMENT SKIN AND SUBCU, LOWER EXTREMITY (WRVU 1.01) performed by Jayme Armstrong MD at [facility] OR ??? PRO DECOMP FOREARM, 2 COMPART, W/O DEBRIDE Left 01/23/2022 FASCIOTOMY; FOREARM AND\OR WRIST, FLEXOR & EXTENS. COMP (WRVU 10.79) performed by Sigifredo Garcia MD at [facility] OR ??? PRO DECOMPRESS ANT/LAT+POST LEG CMPART Left 01/23/2022 FASCIOTOMY, LOWER LEG, ALL COMPARTMENTS (WRVU 7.82) performed by Sigifredo Garcia MD at [facility] OR ??? PRO DRESSING CHANGE UNDER ANESTHESIA Left 02/11/2022 DRESSING CHANGE (FOR OTHER THAN GALLOWAY) UNDER ANES., UPPER EXTREMITY (WRVU 0.86) performed by Parrish Betancourt MD at [facility] OR ??? PRO DRESSING CHANGE UNDER ANESTHESIA Left 02/13/2022 DRESSING CHANGE (FOR OTHER THAN GALLOWAY) UNDER ANES., UPPER EXTREMITY (WRVU 0.86) performed by Jeanette Chatterjee MD at [facility] OR ??? PRO DRESSING CHANGE UNDER ANESTHESIA Left 02/17/2022 DRESSING CHANGE (FOR OTHER THAN GALLOWAY) UNDER ANES., UPPER EXTREMITY (WRVU 0.86) performed by Jayme Armstrong MD at [facility] OR ? ? PRO I&D DEEP ABSCESS BURSA/HEMATOMA THIGH/KNEE REGION Left 02/06/2022 INCISION & DRAINAGE ABSCESS OR HEMATOMA, THIGH, KNEE SUPERFICIAL (WRVU 6.78) performed by Jayme Armstrong MD at [facility] OR ??? PRO INCIS OF HIP/THIGH FASCIA Left 01/23/2022 @FASCIOTOMY,THIGH OR HIP FOR COMPARTMENT SYNDROME (WRVU 12.89) performed by Sigifredo Garcia MD at [facility] OR ??? PRO NEGATIVE PRESSURE WOUND THERAPY, LESS THAN OR EQUAL TO 50 SQCM Left 02/05/2022 DRESSING CHANGE (VAC ASSISTED) UP TO 50SQ.CM (WRVU 0.55) performed by Orville Hennessy MD at [facility] OR ??? PRO NEGATIVE PRESSURE WOUND THERAPY, LESS THAN OR EQUAL TO 50 SQCM Left 02/05/2022 DRESSING CHANGE (VAC ASSISTED) UP TO 50SQ.CM (WRVU 0.55) performed by Tom Valdovinos MD at [facility] MAIN OR ??? PRO NEGATIVE PRESSURE WOUND THERAPY, LESS THAN OR EQUAL TO 50 SQCM Left 02/08/2022 DRESSING CHANGE (VAC ASSISTED) UP TO 50SQ.CM (WRVU 0.55) performed by Jeanette Chatterjee MD at [facility] MAIN OR ??? PRO OPEN TREAT MANDIBLE CONDYLE FX, COMPL 04/27/2013 OPEN TREATMENT, COMPLEX MANDIBLE FX., MULTI APPROACH, W/ FIXATION performed by Kishore Neil MD at [facility] MAIN OR ??? PRO REVISE MEDIAN N/CARPAL TUNNEL SURG Left 01/23/2022 MEDIAN NERVE DECOMPRESSION (CARPAL TUNNEL RELEASE) (WRVU 4.97) performed by Sigifredo Garcia MD at [facility] MAIN OR ??? PRO SEC CLSR SURG WOUND/DEHSN EXTENSIVE/COMPLICATED Left 01/26/2022 SECONDARY CLOSURE SURGICAL WOUND OR DEHISCENCE, EXTENSIVE OR COMPLICATED, UPPER EXTREMITY (WRVU 12.04) performed by Sigifredo Garcia MD at [facility] MAIN OR Current Facility-Administered Medications: ??? [...] 10,000 Units, Intercatheter, Once in dialysis PRN, Clolette Dye MD ??? metroNIDAZOLE (Flagyl) 500 mg [...] date: 01/23/2022 Attending Physician: Gela Novak MD [facility] General Surgery History and Physical Alix Holland [...] date: 01/23/2022 Attending Physician: Parrish Betancourt MD [facility] History and Physical Alix Holland [...] Arteriogram Lower Extremity 02/06/2022 Nicole Vivas MD [facility] INTERVENTIONL RAD ??? PRO DEBRIDEMENT BONE EA ADDL 20 SQCM 02/08/2022 EACH ADDITIONAL 20 SQ CM, OR PART THEREOF (WRVU 1.8) performed by Jeanette Chatterjee MD at [facility] ? ? PRO DEBRIDEMENT BONE MUSCLE &/FASCIA 20 SQ CM/< Left 01/29/2022 DEBRIDEMENT SKIN, SUBCU, MUSCLE, BONE, LOWER EXTREMITY (WRVU 4.1) performed by Tom Valdovinos MD [facility] MAIN OR ? ? PRO DEBRIDEMENT BONE MUSCLE &/FASCIA 20 SQ CM/< Left 01/31/2022 DEBRIDEMENT SKIN, SUBCU, MUSCLE, BONE, LOWER EXTREMITY (WRVU 4.1) performed by Jose Branch MD at [facility] MAIN OR ? ? PRO DEBRIDEMENT BONE MUSCLE &/FASCIA 20 SQ CM/< Left 01/31/2022 DEBRIDEMENT SKIN, SUBCU, MUSCLE, BONE UPPER EXTREMITY (WRVU 4.1) performed by Jose Branch MDat [facility] MA[facility] OR ? ? PRO DEBRIDEMENT BONE MUSCLE &/FASCIA 20 SQ CM/< Left 02/02/2022 DEBRIDEMENT SKIN, SUBCU, MUSCLE, BONE UPPER EXTREMITY (WRVU 4.1) performed by Hina Starks MD at [facility] OR ? ? PRO DEBRIDEMENT BONE MUSCLE &/FASCIA 20 SQ CM/< Left 02/02/2022 DEBRIDEMENT SKIN, SUBCU, MUSCLE, BONE, LOWER EXTREMITY (WRVU 4.1) performed by Hina Starks MD at [facility] OR ? ? PRO DEBRIDEMENT MUSCLE AND FASCIA 20 SQ CM/< Left 01/26/2022 DEBRIDEMENT SKIN, SUBCU, MUSCLE, LOWER EXTREMITY (WRVU 2.7) performed by Sigifredo Garcia MD at [facility] OR ? ? PRO DEBRIDEMENT MUSCLE AND FASCIA 20 SQ CM/< Left 01/26/2022 DEBRIDEMENT SKIN, SUBCU, MUSCLE, UPPER EXTREMITY (WRVU 2.7) performed by Sigifredo Garcia MD at [facility] OR ? ? PRO DEBRIDEMENT MUSCLE AND FASCIA 20 SQ CM/< Left 02/05/2022 DEBRIDEMENT SKIN, SUBCU, MUSCLE, LOWER EXTREMITY (WRVU 2.7) performed by Tom Valdovinos MD at [facility] OR ? ? PRO DEBRIDEMENT MUSCLE AND FASCIA 20 SQ CM/< Left 02/04/2022 DEBRIDEMENT SKIN, SUBCU, MUSCLE, LOWER EXTREMITY (WRVU 2.7) performed by Sigifredo Garcia MD at [facility] OR ? ? PRO DEBRIDEMENT SUBCUTANEOUS TISSUE 20 SQCM/< Left 02/04/2022 DEBRIDEMENT SKIN AND SUBCU, UPPER EXTREMITY (WRVU 1.01) performed by Sig[facility]redo [facility] ? ? PRO DEBRIDEMENT SUBCUTANEOUS TISSUE 20 SQCM/< Left 02/08/2022 DEBRIDEMENT SKIN AND SUBCU, LOWER EXTREMITY (WRVU 1.01) performed by Jeanette Chatterjee MD at [facility] OR ? ? PRO DEBRIDEMENT SUBCUTANEOUS TISSUE 20 SQCM/< Left 02/09/2022 DEBRIDEMENT SKIN AND SUBCU, LOWER EXTREMITY (WRVU 1.01) performed by Jeanette Chatterjee MD at [facility] OR ? ? PRO DEBRIDEMENT SUBCUTANEOUS TISSUE 20 SQCM/< Left 02/11/2022 DEBRIDEMENT SKIN AND SUBCU, LOWER EXTREMITY (WRVU 1.01) performed by Parrish Betancourt MD at [facility] OR ? ? PRO DEBRIDEMENT SUBCUTANEOUS TISSUE 20 SQCM/< Left 02/13/2022 DEBRIDEMENT SKIN AND SUBCU, LOWER EXTREMITY (WRVU 1.01) performed by Jeanette Chatterjee MD at [facility] MAIN OR ??? PRO DECOMP FOREARM, 2 COMPART, W/O DEBRIDE Left 01/23/2022 FASCIOTOMY; FOREARM AND\OR WRIST, FLEXOR & EXTENS. COMP (WRVU 10.79) performed by Sigifredo Garcia MD at [facility] OR ??? PRO DECOMPRESS ANT/LAT+POST LEG CMPART Left 01/23/2022 FASCIOTOMY, LOWER LEG, ALL COMPARTMENTS (WRVU 7.82) performed by Sigifredo Garcia MD at [facility] OR ??? PRO DRESSING CHANGE UNDER ANESTHESIA Left 02/11/2022 DRESSING CHANGE (FOR OTHER THAN GALLOWAY) UNDER ANES., UPPER EXTREMITY (WRVU 0.86) performed by Parrish Betancourt MD at [facility] OR ??? PRO DRESSING CHANGE UNDER ANESTHESIA Left 02/13/2022 DRESSING CHANGE (FOR OTHER THAN GALLOWAY) UNDER ANES., UPPER EXTREMITY (WRVU 0.86) performed by Jeanette Chatterjee MD at [facility] OR ? ? PRO I&D DEEP ABSCESS BURSA/HEMATOMA THIGH/KNEE REGION Left 02/06/2022 INCISION & DRAINAGE ABSCESS OR HEMATOMA, THIGH, KNEE SUPERFICIAL (WRVU 6.78) performed by Jayme Armstrong MD at [facility] OR ??? PRO INCIS OF HIP/THIGH FASCIA Left 01/23/2022 @FASCIOTOMY,THIGH OR HIP FOR COMPARTMENT SYNDROME (WRVU 12.89) performed by Sigifredo Garcia MD at [facility] OR ??? PRO NEGATIVE PRESSURE WOUND THERAPY, LESS THAN OR EQUAL TO 50 SQCM Left 02/05/2022 DRESSING CHANGE (VAC ASSISTED) UP TO 50SQ.CM (WRVU 0.55) performed by Orville Hennessy MD at [facility] OR ??? PRO NEGATIVE PRESSURE WOUND THERAPY, LESS THAN OR EQUAL TO 50 SQCM Left 02/05/2022 DRESSING CHANGE (VAC ASSISTED) UP TO 50SQ.CM (WRVU 0.55) performed by Tom Valdovinos MD at [facility] OR ??? PRO NEGATIVE PRESSURE WOUND THERAPY, LESS THAN OR EQUAL TO 50 SQCM Left 02/08/2022 DRESSING CHANGE (VAC ASSISTED) UP TO 50SQ.CM (WRVU 0.55) performed by Jeanette Chatterjee MD at [facility] MAIN OR ??? PRO OPEN TREAT MANDIBLE CONDYLE FX, COMPL 04/27/2013 OPEN TREATMENT, COMPLEX MANDIBLE FX., MULTI APPROACH, W/ FIXATION performed by Kishore Neil MD at [facility] MAIN OR ??? PRO REVISE MEDIAN N/CARPAL TUNNEL SURG Left 01/23/2022 MEDIAN NERVE DECOMPRESSION (CARPAL TUNNEL RELEASE) (WRVU 4.97) performed by Sigifredo Garcia MD at [facility] MAIN OR ??? PRO SEC CLSR SURG WOUND/DEHSN EXTENSIVE/COMPLICATED Left 01/26/2022 SECONDARY CLOSURE SURGICAL WOUND OR DEHISCENCE, EXTENSIVE OR COMPLICATED, UPPER EXTREMITY (WRVU 12.04) performed by Sigifredo Garcia MD at [facility] MAIN OR Current Facility-Administered Medications: ??? [...] Q24H, Parrish Betancourt MD, Stopped at 02/14/22 2794 ??? ascorbic acid (Vitamin C) (Vitamin C) [...] date: 01/23/2022 Attending Physician: Parrish Betancourt MD [facility] Surgery History and Physical Alix Holland [...] Arteriogram Lower Extremity 02/06/2022 Nicole Vivas MD [facility] INTERVENTIONL RAD ??? PRO DEBRIDEMENT BONE EA ADDL 20 SQCM 02/08/2022 EACH ADDITIONAL 20 SQ CM, OR PART THEREOF (WRVU 1.8) performed by Jeanette Chatterjee MD at [facility] ? ? PRO DEBRIDEMENT BONE MUSCLE &/FASCIA 20 SQ CM/< Left 01/29/2022 DEBRIDEMENT SKIN, SUBCU, MUSCLE, BONE, LOWER EXTREMITY (WRVU 4.1) performed by Tom Valdovinos MD [facility] MAIN OR ? ? PRO DEBRIDEMENT BONE MUSCLE &/FASCIA 20 SQ CM/< Left 01/31/2022 DEBRIDEMENT SKIN, SUBCU, MUSCLE, BONE, LOWER EXTREMITY (WRVU 4.1) performed by Jose Branch MD at [facility] MAIN OR ? ? PRO DEBRIDEMENT BONE MUSCLE &/FASCIA 20 SQ CM/< Left 01/31/2022 DEBRIDEMENT SKIN, SUBCU, MUSCLE, BONE UPPER EXTREMITY (WRVU 4.1) performed by Jose Branch MDat [facility] MAIN OR ? ? PRO DEBRIDEMENT BONE MUSCLE &/FASCIA 20 SQ CM/< Left 02/02/2022 DEBRIDEMENT SKIN, SUBCU, MUSCLE, BONE UPPER EXTREMITY (WRVU 4.1) performed by Hina Starks MD at [facility] MAIN OR ? ? PRO DEBRIDEMENT BONE MUSCLE &/FASCIA 20 SQ CM/< Left 02/02/2022 DEBRIDEMENT SKIN, SUBCU, MUSCLE, BONE, LOWER EXTREMITY (WRVU 4.1) performed by Hina Starks MD at [facility] MAIN OR ? ? PRO DEBRIDEMENT MUSCLE AND FASCIA 20 SQ CM/< Left 01/26/2022 DEBRIDEMENT SKIN, SUBCU, MUSCLE, LOWER EXTREMITY (WRVU 2.7) performed by Sigifredo Garcia MD at [facility] MAIN OR ? ? PRO DEBRIDEMENT MUSCLE AND FASCIA 20 SQ CM/< Left 01/26/2022 DEBRIDEMENT SKIN, SUBCU, MUSCLE, UPPER EXTREMITY (WRVU 2.7) performed by Sigifredo Garcia MD at [facility] MAIN OR ? ? PRO DEBRIDEMENT MUSCLE AND FASCIA 20 SQ CM/< Left 02/05/2022 DEBRIDEMENT SKIN, SUBCU, MUSCLE, LOWER EXTREMITY (WRVU 2.7) performed by Tom Valdovinos MD at [facility] MAIN OR ? ? PRO DEBRIDEMENT MUSCLE AND FASCIA 20 SQ CM/< Left 02/04/2022 DEBRIDEMENT SKIN, SUBCU, MUSCLE, LOWER EXTREMITY (WRVU 2.7) performed by Sigifredo Garcia MD at [facility] MAIN OR ? ? PRO DEBRIDEMENT SUBCUTANEOUS TISSUE 20 SQCM/< Left 02/04/2022 DEBRIDEMENT SKIN AND SUBCU, UPPER EXTREMITY (WRVU 1.01) performed by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 He is admitted tonight to the SICU due to hemorrhagic shock in the setting of ongoing bleeding from a LLE fasciotomy. He was admitted initially to the MICU 01/23 s/p VT arrest at [facility] in the setting ofbeing down for [...] (WRVU 4.1) performed by Tom Valdovinos MD [facility] MAIN OR ? ? PRO DEBRIDEMENT BONE MUSCLE &/FASCIA 20 SQ CM/< Left 01/31/2022 DEBRIDEMENT SKIN, SUBCU, MUSCLE, BONE, LOWER EXTREMITY (WRVU 4.1) performed by Jose Branch MD at [facility] MAIN OR ? ? PRO DEBRIDEMENT BONE MUSCLE &/FASCIA 20 SQ CM/< Left 01/31/2022 DEBRIDEMENT SKIN, SUBCU, MUSCLE, BONE UPPER EXTREMITY (WRVU 4.1) performed by Jose Branch MDat [facility] OR ? ? PRO DEBRIDEMENT BONE MUSCLE &/FASCIA 20 SQ CM/< Left 02/02/2022 DEBRIDEMENT SKIN, SUBCU, MUSCLE, BONE UPPER EXTREMITY (WRVU 4.1) performed by Hina Starks MD at [facility] MAIN OR ? ? PRO DEBRIDEMENT BONE MUSCLE &/FASCIA 20 SQ CM/< Left 02/02/2022 DEBRIDEMENT SKIN, SUBCU, MUSCLE, BONE, LOWER EXTREMITY (WRVU 4.1) performed by Hina Starks MD at [facility] OR ? ? PRO DEBRIDEMENT MUSCLE AND FASCIA 20 SQ CM/< Left 01/26/2022 DEBRIDEMENT SKIN, SUBCU, MUSCLE, LOWER EXTREMITY (WRVU 2.7) performed by Sigifredo Garcia MD at [facility] OR ? ? PRO DEBRIDEMENT MUSCLE AND FASCIA 20 SQ CM/< Left 01/26/2022 DEBRIDEMENT SKIN, SUBCU, MUSCLE, UPPER EXTREMITY (WRVU 2.7) performed by Sigifredo Garcia MD at [facility] OR ??? PRO DECOMP FOREARM, 2 COMPART, W/O DEBRIDE Left 01/23/2022 FASCIOTOMY; FOREARM AND\OR WRIST, FLEXOR & EXTENS. COMP (WRVU 10.79) performed by Sigifredo Garcia MD at [facility] OR ??? PRO DECOMPRESS ANT/LAT+POST LEG CMPART Left 01/23/2022 FASCIOTOMY, LOWER LEG, ALL COMPARTMENTS (WRVU 7.82) performed by Sigifredo Garcia MD at [facility] OR ??? PRO INCIS OF HIP/THIGH FASCIA Left 01/23/2022 @FASCIOTOMY,THIGH OR HIP FOR COMPARTMENT SYNDROME (WRVU 12.89) performed by Sigifredo Garcia MD at [facility] MAIN OR ??? PRO OPEN TREAT MANDIBLE CONDYLE FX, COMPL 04/27/2013 OPEN TREATMENT, COMPLEX MANDIBLE FX., MULTI APPROACH, W/ FIXATION performed by Kishore Neil MD at [facility] MAIN OR ??? PRO REVISE MEDIAN N/CARPAL TUNNEL SURG Left 01/23/2022 MEDIAN NERVE DECOMPRESSION (CARPAL TUNNEL RELEASE) (WRVU 4.97) performed by Sigifredo Garcia MD at [facility] MAIN OR ??? PRO SEC CLSR SURG WOUND/DEHSN EXTENSIVE/COMPLICATED Left 01/26/2022 SECONDARY CLOSURE SURGICAL WOUND OR DEHISCENCE, EXTENSIVE OR COMPLICATED, UPPER EXTREMITY (WRVU 12.04) performed by Sigifredo Garcia MD at [facility] MAIN OR Prior To Admission Medications: [...] mg/mL) in sodium chloride 0.9% 50 mL SCREEN TENDER infusion ??? HYDROmorphone (Dilaudid) (1 mg/mL) injection syringe 1 mg ??? sevelamer carbonate (Renvela) tablet 1,600 mg ??? diphenhydrAMINE (Benadryl) (50 mg/mL) injection 25 mg ??? prochlorperazine (Compazine) (5 mg/mL) injection 5 mg ??? ondansetron (pf) (Zofran) (2 mg/mL) injection 4 mg ??? naloxone (Narcan) (0.4 mg/mL) injection 0.2 mg ??? SCREEN TENDER hutton ??? HYDROmorphone (mg) SCREEN TENDER shift total and Settings verification ??? vancomycin [...] to control pain - pain control: acetaminophen, SCREEN TENDER CV: hypotension in the setting of hypovolemia [...] the LLE. David Pagan MD Orthopaedic Surgery [facility] I spoke with and examined the patient [...] properly marked. David Pagan MD Orthopaedic Surgery [facility] Associated attestation - Sigifredo Garcia MD - [...] fracture ID: [id number] y.o. Male presents to [facility] with PMH significant for hypertension, angioedema requiring intubation(unclear trigger), GERD, gastritis, esophagitis, and urachal cyst s/p I&D, and polysubstance use(including EtOH, cocaine, fentanyl, heroin)??who presented in transfer from [facility] to [facility] ICU on??01/23/2022??for cardiac arrest s/p ROSC, likely [...] to neuro exam. The transport events to [facility] are not clear, but the patient was given a total of 6mg narcan, 10mg IMversed (for ?seizure activity), and and IO placed. He also developed Vtach with rates in the 220s had CPR performed via Jitendra. He was intubated on arrival to [facility] underwent defibrillation with ROSC. He was given [...] was started on levophed and transferred to [facility] for ongoing management. Hospital/ICU course has been significant for: ?? Rhabdomyolysis d/t LUE + LLE Compartment Syndrome with hyperkalemic cardiac arrest ?? COVID-19 infection, Asymptomatic ?? 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 Transaminitis, likely ischemic hepatitis ?? Possible [...] (WRVU 4.1) performed by Tom Valdovinos MD [facility] MAIN OR ? ? PRO DEBRIDEMENT BONE MUSCLE &/FASCIA 20 SQ CM/< Left 01/31/2022 DEBRIDEMENT SKIN, SUBCU, MUSCLE, BONE, LOWER EXTREMITY (WRVU 4.1) performed by Jose Branch MD at [facility] MAIN OR ? ? PRO DEBRIDEMENT BONE MUSCLE &/FASCIA 20 SQ CM/< Left 01/31/2022 DEBRIDEMENT SKIN, SUBCU, MUSCLE, BONE UPPER EXTREMITY (WRVU 4.1) performed by Jose Branch MDat [facility] OR ? ? PRO DEBRIDEMENT MUSCLE AND FASCIA 20 SQ CM/< Left 01/26/2022 DEBRIDEMENT SKIN, SUBCU, MUSCLE, LOWER EXTREMITY (WRVU 2.7) performed by Sigifredo Garcia MD at [facility] MAIN OR ? ? PRO DEBRIDEMENT MUSCLE AND FASCIA 20 SQ CM/< Left 01/26/2022 DEBRIDEMENT SKIN, SUBCU, MUSCLE, UPPER EXTREMITY (WRVU 2.7) performed by Sigifredo Garcia MD at [facility] MAIN OR ??? PRO DECOMP FOREARM, 2 COMPART, W/O DEBRIDE Left 01/23/2022 FASCIOTOMY; FOREARM AND\OR WRIST, FLEXOR & EXTENS. COMP (WRVU 10.79) performed by Sigifredo Garcia MD at [facility] OR ??? PRO DECOMPRESS ANT/LAT+POST LEG CMPART Left 01/23/2022 FASCIOTOMY, LOWER LEG, ALL COMPARTMENTS (WRVU 7.82) performed by Sigifredo Garcia MD at [facility] MAIN OR ??? PRO INCIS OF HIP/THIGH FASCIA Left 01/23/2022 @FASCIOTOMY,THIGH OR HIP FOR COMPARTMENT SYNDROME (WRVU 12.89) performed by Sigifredo Garcia MD at [facility] OR ??? PRO OPEN TREAT MANDIBLE CONDYLE FX, COMPL 04/27/2013 OPEN TREATMENT, COMPLEX MANDIBLE FX., MULTI APPROACH, W/ FIXATION performed by Kishore Neil MD at [facility] MAIN OR ??? PRO REVISE MEDIAN N/CARPAL TUNNEL SURG Left 01/23/2022 MEDIAN NERVE DECOMPRESSION (CARPAL TUNNEL RELEASE) (WRVU 4.97) performed by Sigifredo Garcia MD at [facility] MAIN OR ??? PRO SEC CLSR SURG WOUND/DEHSN EXTENSIVE/COMPLICATED Left 01/26/2022 SECONDARY CLOSURE SURGICAL WOUND OR DEHISCENCE, EXTENSIVE OR COMPLICATED, UPPER EXTREMITY (WRVU 12.04) performed by Sigifredo Garcia MD at [facility] MAIN OR Prior To Admission Medications: [...] who have questions please contact the health wound care center consultant that requested your imaging first. Head wo Contrast (Generic) (Exam End: 01/23/2022 3:58 AM) Impression Globi pallidi infarcts. Mild cerebral edema. Thank you for letting us participate in the care of this patient. If you are a health care provider and have any questions regarding this report, please contact the number below. For patients who have questions please contact the health wound care center consultant that requested your imaging first. Abdomen 1 [...] who have questions please contact the health wound care center consultant that requested your imaging first. Lower Extremity [...] who have questions please contact the health wound care center consultant that requested your imaging first. Chest wo [...] who have questions please contact the health wound care center consultant that requested your imaging first. Upper Extremity [...] who have questions please contact the health wound care center consultant that requested your imaging first. Forearm Left [...] who have questions please contact the health wound care center consultant that requested your imaging first. Chest One [...] who have questions please contact the health wound care center consultant that requested your imaging first. Femur 2 views Left (Generic) (Exam End: 01/23/2022 2:04 PM) Impression No significant osseous finding. Thank you for letting us participate in the care of this patient. If you are a health care provider and have any questions regarding this report, please contact the number below. For patients who have questions please contact the health wound care center consultant that requested your imaging first. Tibia Fibula Left (Generic) (Exam End: 01/23/2022 2:04 PM) Impression No bony abnormality seen. Thank you for letting us participate in the care of this patient. If you are a health care provider and have any questions regarding this report, please contact the number below. For patients who have questions please contact the health wound care center consultant that requested your imaging first. Chest One [...] who have questions please contact the health wound care center consultant that requested your imaging first. Brain wo [...] who have questions please contact the health wound care center consultant that requested your imaging first. Angiogram [place] [facility] (Exam End: 01/24/2022 11:32 PM) Impression Normal appearance of the large and medium size arteries of the head and neck Thank you for letting us participate in the care of this patient. If you are a health care provider and have any questions regarding this report, please contact the number below. For patients who have questions please contact the health wound care center consultant that requested your imaging first. Angiogram Carotids [...] who have questions please contact the health wound care center consultant that requested your imaging first. Chest Abdomen [...] who have questions please contact the health wound care center consultant that requested your imaging first. 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 Erika Retana MD 02/02/2022 David Pagna MD - 02/02/2022 5:59 AM EDT 24-HOUR H&P UPDATE Alix Holland was seen and evaluated. Patient covid/c diff positive. All questions were answered. Stable for surgery as scheduled. Alert and oriented Tachycardic, RR CTAB Alix Holland is a 31 y.o. male pended for I&D, WV exchange vs definitive closure of LUE and LLE. David Pagan MD Orthopaedic Surgery [facility] Dimas Hernandez MD - 01/31/2022 6:29 AM [...] RRR CTAB Doc Roberts MD Orthopaedic Surgery [facility] Parrish Esqueda MD - 01/28/2022 5:25 AM [...] answered. Parrish Esqueda MD Orthopaedic Surgery Pager: [phone] Kris Dean MD - 01/26/2022 6:03 AM [...] to neuro exam. The transport events to [facility] are not clear, but thepatient was given a total of 6mg narcan, 10mg IMversed (for ?seizure activity), and and IO placed. He also developed Vtach with rates in the 220s had CPR performed via Jitendra. He was intubated on arrival to [facility] underwent defibrillation with ROSC. He was given [...] was started on levophed and transferred to [facility] for ongoing management. Urine drug screen: +barbiturates, +oxycodone, +opiates Tylenol, salicylates, and ethanol were negative Notable labs: WBC 27.6 Hgb 21.5 Plts 383 K 7.8-> 5.4 CO2 11 BUN 32 Cr 4.37 AG 35 Lactate >10 AST 3588 ALT 990 Trop-I >9000 SARS-CoV-2 RNA detected En-route to [facility] he was given boluses of ketamine for [...] FIXATION performed by Kishore Neil MD at [facility] MAIN OR No family history on [...] CK >220,000* TROPONINT 0.43* Microbiology: -01/22/22 from [facility]: SARS-CoV2 PCR positive -Blood cultures, sputum culture, UA, respiratory PCR pending ECG: Sinus tachycardia Imaging: Assessment: Alix Holland is a 31 y.o. male with PMH significant for polysubstance use who presentsto the ICU in transfer from [facility] with cardiac arrest s/p ROSC. [...] femoral CVL placed 01/22 at [facility] Right radial A-line ETT NGT Ayala Consults: [...] Hillman APRN January 23, 2022 Critical Care [place] Team (pager [phone]) Dr. Robles is the attending of record [...] to the planned procedure. Hand Hygiene: The division operations specialist did perform hand hygiene prior to line insertion. Catheter type: PICC Lot number: [id number] Procedure Technique: Skin was prepped with chlorhexidine. [...] location at time of insertion: ICU 4 [facility] Rogers Solano APRN Collette Rivas PA [...] to the planned procedure. Hand Hygiene: The division operations specialist did perform hand hygiene prior to [...] to the planned procedure. Hand Hygiene: The division operations specialist did perform hand hygiene prior to [...] yes Patient location at time of insertion: [address] Procedure Comments: Entire procedure supervised by [...] location at time of insertion: ICU 3 [place] Procedure Comments: Prior to dilation wire was [...] to the planned procedure. Hand Hygiene: The division operations specialist did perform hand hygiene prior to [...] Patient is medically ready for discharge to [facility] for acute rehab. Per [facility], patient can have PICC line in place for discharge. Needs for Transition of Care: Plan for discharge is: Acute Rehab Transportation: ambulance , [facility] 2:30pm Wheelchair van/Ambulance? Yes Ambulance transportation [...] outpatient MAT appointment, please page Psychiatry at [phone] if you need assistance with this. Time [...] bpm-132 bpm] OUTCOME EVALUATION NOTE: OUTCOME SUMMARY: lAix had a quite night. AxO VSS on [...] outpatient Suboxone provider. He has spoken with [facility] in [place]. He plans to see them after DC [...] outpatient MAT appointment, please page Psychiatry at [phone] if you need assistance with this. Time [...] C.diff precautions d/naveed yesterday-pt room changed to [facility] so previous room can be cleansed per [...] outpatient MAT appointment, please page Psychiatry at [phone] if you need assistance with this. Time [...] in the 60-day range as notedbelow.) Origin: [facility] Destination: [facility] Is the patient's stay covered under [...] van (i.e. seated during transport, without medical claims analyst or monitoring?): No 4) In addition to [...] by the Centers of Medicare and MedicaidServices ([facility]) to support the determination of medical [...] attending physician, this form was signed by Loft Worker Head Plan of Care - Corina Zabala RN - 03/18/2022 4:27 PM EDT OUTCOME EVALUATION NOTE: ?? OUTCOME SUMMARY: ?? Pt had a good day. VSS on RA. A&Ox4. HR tachy to the 110s to 120 at baseline. SCREEN TENDER discontinued. Prn oxy given with good effect. [...] outpatient MAT appointment, please page BIT at [phone] if you need assistance with this. Time spent with the patient (min):15 minutes Time spent on case coordination (min): 15 minutes Consult Note - Dilia Lemons - 03/18/2022 7:30 AM EDT [facility] Evaluation Referral source: Follow up Reason [...] friendly. He is interested in starting Suboxone. [facility] has already given him information for [facility] in [facility] and will assist him in setting up out patient provider once he starts the treatment. Interventions delivered: Other: Peer Support Plan: will continue to follow patient for the remainder for admission. Outstanding Discharge Needs: At time of discharge patient may require a buprenorphine script to bridge to outpatient MAT appointment, please page Psychiatry at [phone] if you need assistance with this. Time spent with the patient (min):15 minutes Time spent on case coordination (min): 15 minutes Plan of Care - Corina Zabala RN - 03/17/2022 4:31 PM EDT OUTCOME EVALUATION NOTE: OUTCOME SUMMARY: Pt had a good day. VSS on RA. A&Ox4. HR tachy to the 110s to 120 at baseline. SCREEN TENDER decreased to 0.1mg. Prn oxy given with [...] Their notes will be sent by the Incident Response Analyst to the rehab facilities. Will likely have dressing change tomorrow. Currently weaning his dilaudid SCREEN TENDER. ?? Per IDR: 03/17/2022: Acute Rehab on [...] for discharge is: Acute Rehab Agency Referrals: [facility] Inpatient Rehabilitation Unit - [address] [address] [facility] Acute Rehabilitation and Sub-Acute (Swing) Rehab Levels of Care [address] [place] [id number] Transportation: ambulance Discussed with patient on 03/16/2022. Barriers to discharge: Discharge planning Psych: Adjustment to diagnosis/illness, Coping/stress Plan going forward: ACS Care Management will continue to follow and assist with discharge planning and coordination of care as indicated. Anticipated Date of Discharge: 03/22/2022 Alexa Fonseca RN (Jonas) RN/CM - Cellphone: [phone] Pager: [phone] Covering Service RN/CM Care Management - Jamilah Fonseca RN - 03/17/2022 9:05 AM EDT RN/CM has called: Alix Holland (father) c: [phone] Dad's House: Mobile home; [address]. No steps inside of home. Dad visits almost daily to see his son. Dad will help him establish a PCP with the local [facility]. Per Dad, when pt gets home, his dad will be home as he is retired so he is available 21/02. His Mom is in [place] and she can come up and help [...] near future. Pt's has a brother in [place] - willing to have him come down there once he is physically able to do so. Work: [employer], [place]. Pt's dad is hopeful that he'll be able to get backto his work. Alexa (Kenny) ÁNGEL Fonseca RN/CM - Cellphone: [phone] Pager: [phone] Covering Service RN/CM Plan of Care - Jayme Keenan RN - 03/16/2022 6:56 PM EDT OUTCOME EVALUATION NOTE: OUTCOME SUMMARY: Alix had a good shift today. Elevated BPs and tachycardic, other VSS on RA. Reporting 8 to 10/10 pain, using dilaudid SCREEN TENDER and PRN oxy given x2. Up to [...] and independence Monitor and control pain, weaning SCREEN TENDER, syringe expires 03/18 at 1755 Hoping to [...] roz Almanzar, personal items and [facility], room near unit station Care Management - Jamilah Fonseca RN - 03/16/2022 3:58 PM EDT Based on discussions with the multi-disciplinary healthcare team, the patient would benefit from Acute Rehab level of care at discharge. I have met with the patient to: ?? discuss discharge planning needs. ?? provide the [facility], Office of Care Management letter from the Shotgun Shell Assembly Machine Adjuster pertaining to rehab referrals. ?? provide a letter describing our affiliations within the [facility] and educate about their right to choose where referrals are sent. ?? provide the [facility] Star Quality Rating handout. ?? review the different levels of rehab including SNF, swing, and acute. ?? provide a list of facilities within their preferred geographic area. ?? request that they provide at least three choices for referral. They have requested referrals to: [facility] Inpatient Rehabilitation Unit - [address] [address] [facility] Acute Rehabilitation and Sub-Acute (Swing) Rehab Levels of Care [address] [place] [address] Covid Vaccination Status: UNVACCINATED Does patient have COVID vaccine card: N/A Anticipated discharge date: 03/19/2022 Note routed to a Door Core Assembler who will communicate referrals to facilities and [...] back to his dad's house in [place]. RN/CM attempted to call: Alix Holland (Father) - Alix Holland (father) c: [phone]. RN/CM attempted calls to other family members: Marylou Holland (Sibling) - [phone] (H): phone call was not able to get through Josefina Holland (Grandparent) - [phone] (H): line busy Per patient, he was employed x 5 years. He is unsure if he'll have employment after all of this is completed and he is strong, healthy enough to work. Alexa (Kenny) ÁNGEL Fonseca RN/CM - Cellphone: [phone] Pager: [phone] Covering Service RN/CM Consult Note - Dilia [...] RA. Reporting 8 to10/10 pain, using dilaudid SCREEN TENDER and PRN oxy given x2. Dressing change [...] and self care Monitor and control pain, SCREEN TENDER expires 03/16 1800 INDIVIDUALIZED FALL PREVENTION INTERVENTIONS: [...] Alexa Fonseca RN (Jonas) RN/CM - Cellphone: [phone] Pager: [phone] Covering Service RN/CM Op Note - Allison Kelly MD - 03/15/2022 9:02 AM EDT [facility] Operative Note Patient Name: Alix Holland : [id number] MR#: [id number] Case Date: 03/15/2022 Surgeon: Surgeon(s) and Role: [...] changes who ultimately underwent STSGs to the [facility] and [facility] on 03/10/22. He then returned to the [...] Operative Note Patient Name: Alix Holland : [id number] MR#: [id number] Case Date: 03/15/2022 Surgeon: Surgeon(s) and Role: * Allison Kelyl MD - Primary * Veto Hidalgo MD [...] Consult Note - Thomas Julian, [facility] - 03/14/2022 4:59 PM EDT Clinical Pharmacist Note-Vanc Alix Holland [id number] 1990 Alix Holland is a 31 y.o. [...] have. Alternately, during off-hours you may call [phone] to contact a pharmacist. THOMAS JULIAN [facility] Pager [phone] Plan of Care - Adrienne Tejada RN [...] Operative Note Patient Name: Alix Holland : [id number] MR#: [id number] Case Date: 03/13/2022 Surgeon: Surgeon(s) and Role: [...] from the original note were not included. [facility] Operative Note Patient Name: Alix Holland : [id number] MR#: [id number] Case Date: 03/13/2022 Surgeon: Surgeon(s) and Role: [...] Reporting 8 to 10/10 pain, using dilaudid SCREEN TENDER and PRN oxy given x2. No BM this shift but pt now willing to take bowel meds, LBM 03/10. Adequate UOP via urinal. NPO status maintained after midnight. PLAN MOVING FORWARD: Strict bedrest NPO for OR today Encourage self care Monitor and control pain, start weaning SCREEN TENDER INDIVIDUALIZED FALL PREVENTION INTERVENTIONS: Patient-specific fall risk factors per assessment: [current deficits]: Unfamiliar environment, recent surgeries, generalized weakness, lines and drains, pain, narcotics Assistance [level of assistance required for transfers and ambulation]: Bedrest, 2 assist to reposition Supervision [direct monitoring required during toileting and ADLs]: Hands on Surveillance [continuous indirect monbitoring]: Masimo, rounding, personal items and [facility], room near unit station, bed alarm set Plan of Care - Adrienne Tejada RN - 03/12/2022 7:11 PM EDT OUTCOME EVALUATION NOTE: OUTCOME SUMMARY: Pt A&Ox4. Pt hypertensive and tachycardic. MD aware. A&Ox4. Pt denies SOB, N/V.Pain controlled witn SCREEN TENDER dilaudid and PRN pain meds. Neurovascular checks [...] Reporting 8 to 10/ pain, using dilaudid SCREEN TENDER and PRN oxy given x2. No BM this shift, LBM 8/10. High UOP. MIVF discontinued. PLAN MOVING FORWARD: NPO tomorrow at midnight for OR Tuesday Encourage self care Monitor and control pain, start weaning SCREEN TENDER INDIVIDUALIZED FALL PREVENTION INTERVENTIONS: Patient-specific fall risk [...] and tachycardic. MD aware. Pain controlled witn SCREEN TENDER dilaudid and PRN pain meds. Neurovascular checks [...] VAC particularly not holding suction please page [phone] immediately given that thiswill affect skin graft take -High-protein high-calorie low Phos diet -Plan to return to the operating room on Tuesday for VAC removal, bedrest until then -SCREEN TENDER for pain control will wean as able [...] Alexa Fonseca RN (Jonas) RN/CM - Cellphone: [phone] Pager: [phone] Covering Service RN/CM Op Note - Veto Hidalgo MD - 03/10/2022 4:40 PM EDT [facility] Operative Note Patient Name: Alix Holland : [id number] MR#: [id number] Case Date: 03/10/2022 Surgeon: Surgeon(s) and Role: [...] Operative Note Patient Name: Alix Holland : [id number] MR#: [id number] Case Date: 03/10/2022 Surgeon: Surgeon(s) and Role: [...] Alexa Fonseca RN (Jonas) RN/CM - Cellphone: [phone] Pager: [phone] Covering Service RN/CM Plan of Care - [...] Sanabria MD - 03/03/2022 6:43 PM EDT [facility] Operative Note Patient Name: Alix Holland : [id number] MR#: [id number] Case Date: 03/03/2022 Surgeon: Surgeon(s) and Role: [...] good granulation tissue, minimal exposed tendon. Measures [id number] 3mm deep. One black sponge replaced and [...] (PICC) Teaching Sheet Peripherally inserted central catheters ([id number]) (PICC) are used when you need IV [...] midline catheter? PICC lines are used for custodial treatments. PICC lines may be used for [...] can be set up via the nurse Career Development Coordinator/Teacher to help you. What are possible complications [...] Efficacy, Safety, Use, and Administration of [employer], [employer] 2006 Plan of Care - Rhonda Coyle RN - 03/03/2022 6:10 AM EDT Outcome Evaluation Note: Outcome Summary: Pt A&Ox4, VSS on RA - expect tachycardic, afebrile. Reports 10/10 pain with PRN oxycodone. WoundVac x2 to suction, CDI. AUOP via urinal, no BM this shift. Pt NPO at midnight for OR WV change. Labsdrawn and sent. [facility] Plan Moving Forward: Pain management. OR [...] Hands on. Surveillance [continuous indirect monitoring]: abdoul lAmanzar w/in reach, purposeful rounding, room near nurse [...] Operative Note Patient Name: Alix Holland : [id number] MR#: [id number] Case Date: 03/01/2022 Surgeon: Surgeon(s) and Role: [...] Sanabria MD - 03/01/2022 8:09 PM EDT [facility] Operative Note Patient Name: Alix Holland : [id number] MR#: [id number] Case Date: 03/01/2022 ?? Surgeon: Surgeon(s) and [...] Betancourt MD - 02/26/2022 8:58 AM EDT [facility] Operative Note Patient Name: Alix Holland : [id number] MR#: [id number] Case Date: 02/26/2022 Surgeon: Surgeon(s) and Role: [...] and Serratia infections.?? RN at bedside with WEDDING CAKE DESIGNER; Patient has just returned from OR. RN [...] Risk Screen: no indicators present Current bed: [facility] Assessment: Patient is free of MASD [...] Ajit Simmons RN on secure chat, pager [phone] or the wound care team at [phone] or pager [phone] with skin and wound care concerns or questions. Op Note - Elaine Dos Santos MD - 02/24/2022 12:14 PM EDT [facility] Operative Note Patient Name: Alix IQBAL: [id number] MR#: [id number] Case Date: 02/24/2022 Surgeon: Surgeon(s) and Role: [...] IV abx. Bed alarm on for safety. [facility] Plan Moving Forward: HD. Pain management. [...] Outpatient Agency/Support Group Needs: None Agency Referrals: [facility] for HD Transportation: Family Plan going forward: Care Management will continue to follow and assist with discharge planning and coordination of care as indicated. Anticipated Date of Discharge: 02/26/2022 Lizzy Love RN, BSN Case Management Brief Op Note - Elaine Dos Santos MD - 02/22/2022 9:42 AM EDT Brief Operative Note Patient Name: Alix Holland : [id number] MR#: [id number] Case Date: 02/22/2022 Surgeon: Surgeon(s) and Role: [...] Santos MD - 02/22/2022 9:27 AM EDT [facility] Operative Note Patient Name: Alix Holland : [id number] MR#: [id number] Case Date: 02/22/2022 Surgeon: Surgeon(s) and Role: [...] OUTCOME EVALUATION: Ongoing. Plan of Care - Britntey Ann RN - 02/21/2022 5:29 AM EDT [...] Sandoval MD - 02/19/2022 10:20 AM EDT [facility] Operative Note Patient Name: Alix Holland : [id number] MR#: [id number] Case Date: 02/19/2022 Surgeon: Surgeon(s) and Role: [...] Pt remained NPO @ 0000 for OR. [facility] Plan Moving Forward: Pain control. NPO [...] Operative Note Patient Name: Alix Holland : [id number] MR#: [id number] Case Date: 02/17/2022 Surgeon: Surgeon(s) and Role: [...] Armstrong MD - 02/17/2022 8:03 AM EDT [facility] Operative Note Patient Name: Alix Holland : [id number] MR#: [id number] Case Date: 02/17/2022 Surgeon: Surgeon(s) and Role: [...] Armstrong MD - 02/15/2022 2:08 PM EDT [facility] Operative Note Patient Name: Alix Holland : [id number] MR#: [id number] Case Date: 02/15/2022 Surgeon: Surgeon(s) and Role: [...] was cultured. We then removed the remaining [place]. The wound was irrigated and measured wound [...] Consult Note - Maureen Ames [facility] - 02/13/2022 12:17 PM EDT Clinical Pharmacist Note - Renal Dose Adjustment for Antimicrobials Alix Holland (A# [id number]) is being treated with the following antimicrobial [...] Chatterjee MD - 02/13/2022 9:52 AM EDT [facility] Operative Note Patient Name: Alix Holland : [id number] MR#: [id number] Case Date: 02/13/2022 Surgeon: Surgeon(s) and Role: [...] PCP: None Primary Team #: ICU (Juan #[id number]) CC: findings of CTH HPI: Alix Holland [...] he was following commands upon arrival to [facility] ICU. CTH showed bilateral symmetric globus pallidi [...] EXTREMITY 02/06/2022 IR Arteriogram Lower Extremity 02/06/2022 Nciole Vivas MD [facility] INTERVENTIONL RAD ??? PRO DEBRIDEMENT BONE EA ADDL 20 SQCM 02/08/2022 EACH ADDITIONAL 20 SQ CM, OR PART THEREOF (WRVU 1.8) performed by Jeanette Chatterjee MD at [facility] PAIGE ? ? PRO DEBRIDEMENT BONE MUSCLE &/FASCIA 20 SQ CM/< Left 01/29/2022 DEBRIDEMENT SKIN, SUBCU, MUSCLE, BONE, LOWER EXTREMITY (WRVU 4.1) performed by Tom Valdovinos MD [facility] MAIN OR ? ? PRO DEBRIDEMENT BONE MUSCLE &/FASCIA 20 SQ CM/< Left 01/31/2022 DEBRIDEMENT SKIN, SUBCU, MUSCLE, BONE, LOWER EXTREMITY (WRVU 4.1) performed by Jose Branch MD at [facility] MAIN OR ? ? PRO DEBRIDEMENT BONE MUSCLE &/FASCIA 20 SQ CM/< Left 01/31/2022 DEBRIDEMENT SKIN, SUBCU, MUSCLE, BONE UPPER EXTREMITY (WRVU 4.1) performed by Jose Branch MDat [facility] MAIN OR ? ? PRO DEBRIDEMENT BONE MUSCLE &/FASCIA 20 SQ CM/< Left 02/02/2022 DEBRIDEMENT SKIN, SUBCU, MUSCLE, BONE UPPER EXTREMITY (WRVU 4.1) performed by Hina Starks MD at [facility] MAIN OR ? ? PRO DEBRIDEMENT BONE MUSCLE &/FASCIA 20 SQ CM/< Left 02/02/2022 DEBRIDEMENT SKIN, SUBCU, MUSCLE, BONE, LOWER EXTREMITY (WRVU 4.1) performed by Hina Starks MD at [facility] MAIN OR ? ? PRO DEBRIDEMENT MUSCLE AND FASCIA 20 SQ CM/< Left 01/26/2022 DEBRIDEMENT SKIN, SUBCU, MUSCLE, LOWER EXTREMITY (WRVU 2.7) performed by Sigifredo Garcia MD at [facility] MAIN OR ? ? PRO DEBRIDEMENT MUSCLE AND FASCIA 20 SQ CM/< Left 01/26/2022 DEBRIDEMENT SKIN, SUBCU, MUSCLE, UPPER EXTREMITY (WRVU 2.7) performed by Sigifredo Garcia MD at [facility] OR ? ? PRO DEBRIDEMENT MUSCLE AND FASCIA 20 SQ CM/< Left 02/05/2022 DEBRIDEMENT SKIN, SUBCU, MUSCLE, LOWER EXTREMITY (WRVU 2.7) performed by Tom Valdovinos MD at [facility] OR ? ? PRO DEBRIDEMENT MUSCLE AND FASCIA 20 SQ CM/< Left 02/04/2022 DEBRIDEMENT SKIN, SUBCU, MUSCLE, LOWER EXTREMITY (WRVU 2.7) performed by Sigifredo Garcia MD at [facility] OR ? ? PRO DEBRIDEMENT SUBCUTANEOUS TISSUE 20 SQCM/< Left 02/04/2022 DEBRIDEMENT SKIN AND SUBCU, UPPER EXTREMITY (WRVU 1.01) performed [facility] ? ? PRO DEBRIDEMENT SUBCUTANEOUS TISSUE 20 SQCM/< Left 02/08/2022 DEBRIDEMENT SKIN AND SUBCU, LOWER EXTREMITY (WRVU 1.01) performed by Jeanette Chatterjee MD at [facility] OR ? ? PRO DEBRIDEMENT SUBCUTANEOUS TISSUE 20 SQCM/< Left 02/09/2022 DEBRIDEMENT SKIN AND SUBCU, LOWER EXTREMITY (WRVU 1.01) performed by Jeanette Chatterjee MD at [facility] OR ??? PRO DECOMP FOREARM, 2 COMPART, W/O DEBRIDE Left 01/23/2022 FASCIOTOMY; FOREARM AND\OR WRIST, FLEXOR & EXTENS. COMP (WRVU 10.79) performed by Sigifredo Garcia MD at [facility] OR ??? PRO DECOMPRESS ANT/LAT+POST LEG CMPART Left 01/23/2022 FASCIOTOMY, LOWER LEG, ALL COMPARTMENTS (WRVU 7.82) performed by Sigifredo Garcia MD at [facility] OR ? ? PRO I&D DEEP ABSCESS BURSA/HEMATOMA THIGH/KNEE REGION Left 02/06/2022 INCISION & DRAINAGE ABSCESS OR HEMATOMA, THIGH, KNEE SUPERFICIAL (WRVU 6.78) performed by Jayme Armstrong MD at [facility] OR ??? PRO INCIS OF HIP/THIGH FASCIA Left 01/23/2022 @FASCIOTOMY,THIGH OR HIP FOR COMPARTMENT SYNDROME (WRVU 12.89) performed by Sigifredo Garcia MD at [facility] MAIN OR ??? PRO NEGATIVE PRESSURE WOUND THERAPY, LESS THAN OR EQUAL TO 50 SQCM Left 02/05/2022 DRESSING CHANGE (VAC ASSISTED) UP TO 50SQ.CM (WRVU 0.55) performed by Orville Hennessy MD at [facility] MAIN OR ??? PRO NEGATIVE PRESSURE WOUND THERAPY, LESS THAN OR EQUAL TO 50 SQCM Left 02/05/2022 DRESSING CHANGE (VAC ASSISTED) UP TO 50SQ.CM (WRVU 0.55) performed by Tom Valdovinos MD at [facility] MAIN OR ??? PRO NEGATIVE PRESSURE WOUND THERAPY, LESS THAN OR EQUAL TO 50 SQCM Left 02/08/2022 DRESSING CHANGE (VAC ASSISTED) UP TO 50SQ.CM (WRVU 0.55) performed by Jeanette Chatterjee MD at [facility] MAIN OR ??? PRO OPEN TREAT MANDIBLE CONDYLE FX, COMPL 04/27/2013 OPEN TREATMENT, COMPLEX MANDIBLE FX., MULTI APPROACH, W/ FIXATION performed by Kishore Neil MD at [facility] MAIN OR ??? PRO REVISE MEDIAN N/CARPAL TUNNEL SURG Left 01/23/2022 MEDIAN NERVE DECOMPRESSION (CARPAL TUNNEL RELEASE) (WRVU 4.97) performed by Sigifredo Garcia MD at [facility] MAIN OR ??? PRO SEC CLSR SURG WOUND/DEHSN EXTENSIVE/COMPLICATED Left 01/26/2022 SECONDARY CLOSURE SURGICAL WOUND OR DEHISCENCE, EXTENSIVE OR COMPLICATED, UPPER EXTREMITY (WRVU 12.04) performed by Sigifredo Garcia MD at [facility] MAIN OR Home Medications: No current [...] year, name, knows why he is at [facility], knows he is at [facility], follows complex commands. More alert than prior; [...] HCT 20.7 (L) 02/09/2022 Current bed: [facility] Assessment: The skin of the buttocks with [...] privacy for the patient. 2. Apply the Hitchcock sheet with Body Pad under the patient with the tag on the underside of the Hitchcock Sheet unfolded toward head of bed. Align upper edge of Hitchcock Sheet with patient's shoulders. 3. Gently slide [...] chat or the wound care team at [phone] or pager [phone] with skin and wound care concerns or [...] off for discharge. We recommend stopping the SCREEN TENDER and increasing the frequency of the PRNoxycodone to make up for any decrease in coverage. There is no role for IV pain medication in his care except for rescue and OR. The dronabinol can also be increased. Recommendations: - D/C hydromorphone SCREEN TENDER - increase oxy sliding scale to Q3h - avoid IV opioids (other than rescue and OR) - increase dronabinol to 15mg PO BID Plan discussed with patient, his partner, and the primary team. Recommendations are above, please page if further consultation is required. Nicholas Modi MD 02/11/2022 Acute Pain Service Pager: [phone] I have seen and examined the patient. I have reviewed Dr. Modi's note and agree with the findings, assessment and plan. Op Note - Kaitlyn Rock MD - 02/11/2022 11:09 AM EDT [facility] Operative Note Patient Name: Alix Holland : [id number] MR#: [id number] Case Date: 02/11/2022 Surgeon: Surgeon(s) and Role: [...] CONSULTATION NOTE Patient ID: Alix Holland Room: [address] [place] [address] Reason for Consult: Surgical site infection and [...] issues with pain control and PO and SCREEN TENDER currently helping somewhat. 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 Op Note - Jeanette Chatterjee MD - 02/08/2022 4:18 PM EDT [facility] Operative Note Patient Name: Alix Holland : [id number] MR#: [id number] Case Date: 02/08/2022 Surgeon: Surgeon(s) and Role: [...] N/A Prescription Coverage: No Preferred Pharmacy: [facility] [address] [address] [facility] [id number] - [place], [place] - [address] [facility] 55 [facility] [address] Plan for discharge is: Pending Hospital Course [...] Armstrong MD - 02/06/2022 4:09 PM EDT [facility] Operative Note Patient Name: Alix Holland : [id number] MR#: [id number] Case Date: 02/06/2022 Surgeon: Surgeon(s) and Role: [...] artery ?? Mynx Closure device deployed, R JIGMAKER Findings of the procedure: ?? 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 Transfer back to ICU 2. Flat for 2 hours, following Right JIGMAKER Mynx closure deployment 3. Monitor for Right [...] to wound vac on LUE. Pt using SCREEN TENDER for pain control. PT to OR midday. [...] per assessment: [current deficits]: Severely limited mobility, SCREEN TENDER pump, central venous access., wound vacs Assistance [...] Valdovinos MD - 02/05/2022 1:17 PM EDT [facility] Operative Note Panel 1 Patient Name: Alix Holland : [id number] MR#: [id number] Case Date: 02/05/2022 Surgeon: Surgeon(s) and Role: [...] not need to include opening and closing). OTM VALDOVINOS MD 02/05/2022 Op Note - Orville Hennessy MD - 02/05/2022 1:17 PM EDT [facility] Operative Note Patient Name: Alix Holland : [id number] MR#: [id number] Case Date: 02/05/2022 Surgeon: Surgeon(s) and Role: [...] Operative Note Patient Name: Alix Holland : [id number] MR#: [id number] Case Date: 02/04/2022 Surgeon: Surgeon(s) and Role: [...] Garcia MD - 02/04/2022 5:38 PM EDT [facility] Operative Note Patient Name: Alix Holland : [id number] MR#: [id number] Case Date: 02/04/2022 Surgeon: Surgeon(s) and Role: [...] (WRVU 4.1) performed by Tom Valdovinos MD [facility] MAIN OR ? ? PRO DEBRIDEMENT BONE MUSCLE &/FASCIA 20 SQ CM/< Left 01/31/2022 DEBRIDEMENT SKIN, SUBCU, MUSCLE, BONE, LOWER EXTREMITY (WRVU 4.1) performed by Jose Branch MD at [facility] MAIN OR ? ? PRO DEBRIDEMENT BONE MUSCLE &/FASCIA 20 SQ CM/< Left 01/31/2022 DEBRIDEMENT SKIN, SUBCU, MUSCLE, BONE UPPER EXTREMITY (WRVU 4.1) performed by Jose Branch MDat [facility] MAIN OR ? ? PRO DEBRIDEMENT BONE MUSCLE &/FASCIA 20 SQ CM/< Left 02/02/2022 DEBRIDEMENT SKIN, SUBCU, MUSCLE, BONE UPPER EXTREMITY (WRVU 4.1) performed by Hina Starks MD at [facility] MAIN OR ? ? PRO DEBRIDEMENT BONE MUSCLE &/FASCIA 20 SQ CM/< Left 02/02/2022 DEBRIDEMENT SKIN, SUBCU, MUSCLE, BONE, LOWER EXTREMITY (WRVU 4.1) performed by Hina Starks MD at [facility] OR ? ? PRO DEBRIDEMENT MUSCLE AND FASCIA 20 SQ CM/< Left 01/26/2022 DEBRIDEMENT SKIN, SUBCU, MUSCLE, LOWER EXTREMITY (WRVU 2.7) performed by Sigifredo Garcia MD at [facility] MAIN OR ? ? PRO DEBRIDEMENT MUSCLE AND FASCIA 20 SQ CM/< Left 01/26/2022 DEBRIDEMENT SKIN, SUBCU, MUSCLE, UPPER EXTREMITY (WRVU 2.7) performed by Sigifredo Garcia MD at [facility] MAIN OR ??? PRO DECOMP FOREARM, 2 COMPART, W/O DEBRIDE Left 01/23/2022 FASCIOTOMY; FOREARM AND\OR WRIST, FLEXOR & EXTENS. COMP (WRVU 10.79) performed by Sigifredo Garcia MD at [facility] MAIN OR ??? PRO DECOMPRESS ANT/LAT+POST LEG CMPART Left 01/23/2022 FASCIOTOMY, LOWER LEG, ALL COMPARTMENTS (WRVU 7.82) performed by Sigifredo Garcia MD at [facility] MAIN OR ??? PRO INCIS OF HIP/THIGH FASCIA Left 01/23/2022 @FASCIOTOMY,THIGH OR HIP FOR COMPARTMENT SYNDROME (WRVU 12.89) performed by Sigifredo Garcia MD at [facility] MAIN OR ??? PRO OPEN TREAT MANDIBLE CONDYLE FX, COMPL 04/27/2013 OPEN TREATMENT, COMPLEX MANDIBLE FX., MULTI APPROACH, W/ FIXATION performed by Kishore Neil MD at [facility] OR ??? PRO REVISE MEDIAN N/CARPAL TUNNEL SURG Left 01/23/2022 MEDIAN NERVE DECOMPRESSION (CARPAL TUNNEL RELEASE) (WRVU 4.97) performed by Sigifredo Garcia MD at [facility] MAIN OR ??? PRO SEC CLSR SURG WOUND/DEHSN EXTENSIVE/COMPLICATED Left 01/26/2022 SECONDARY CLOSURE SURGICAL WOUND OR DEHISCENCE, EXTENSIVE OR COMPLICATED, UPPER EXTREMITY (WRVU 12.04) performed by Sigifredo Garcia MD at [facility] OR MEDS: No current facility-administered medications on [...] Kenny Brandon MD Plastic surgery team pager: [phone] Attending: Plan discussed and agree as documented. [...] PCP: None Primary Team #: ICU ([facility] #[id number]) CC: findings of CTH HPI: Alix Holland [...] he was following commands upon arrival to [facility] ICU. CTH showed bilateral symmetric globus pallidi [...] no acute intervention Today: - pain control: SCREEN TENDER, received dilaudid IV x 1 yesterday for breakthrough. > APS following for pain control recs - reports significant pain in LUE mainly this AM '05/10' Current Medications: Scheduled Meds: ??? SCREEN TENDER shift total and Settings verification Intravenous 2 Times Daily- SCREEN TENDER Shift Total ??? vancomycin 125 mg Oral [...] (WRVU 4.1) performed by Tom Valdovinos MD [facility] MAIN OR ? ? PRO DEBRIDEMENT BONE MUSCLE &/FASCIA 20 SQ CM/< Left 01/31/2022 DEBRIDEMENT SKIN, SUBCU, MUSCLE, BONE, LOWER EXTREMITY (WRVU 4.1) performed by Jose Branch MD at [facility] MAIN OR ? ? PRO DEBRIDEMENT BONE MUSCLE &/FASCIA 20 SQ CM/< Left 01/31/2022 DEBRIDEMENT SKIN, SUBCU, MUSCLE, BONE UPPER EXTREMITY (WRVU 4.1) performed by Jose Branch, Ferdinandt [facility] MAIN OR ? ? PRO DEBRIDEMENT MUSCLE AND FASCIA 20 SQ CM/< Left 01/26/2022 DEBRIDEMENT SKIN, SUBCU, MUSCLE, LOWER EXTREMITY (WRVU 2.7) performed by Sigifredo Garcia MD at [facility] MAIN OR ? ? PRO DEBRIDEMENT MUSCLE AND FASCIA 20 SQ CM/< Left 01/26/2022 DEBRIDEMENT SKIN, SUBCU, MUSCLE, UPPER EXTREMITY (WRVU 2.7) performed by Sigifredo Garcia MD at [facility] MAIN OR ??? PRO DECOMP FOREARM, 2 COMPART, W/O DEBRIDE Left 01/23/2022 FASCIOTOMY; FOREARM AND\OR WRIST, FLEXOR & EXTENS. COMP (WRVU 10.79) performed by Sigifredo Garcia MD at [facility] MAIN OR ??? PRO DECOMPRESS ANT/LAT+POST LEG CMPART Left 01/23/2022 FASCIOTOMY, LOWER LEG, ALL COMPARTMENTS (WRVU 7.82) performed by Sigifredo Garcia MD at [facility] MAIN OR ??? PRO INCIS OF HIP/THIGH FASCIA Left 01/23/2022 @FASCIOTOMY,THIGH OR HIP FOR COMPARTMENT SYNDROME (WRVU 12.89) performed by Sigifredo Garcia MD at [facility] OR ??? PRO OPEN TREAT MANDIBLE CONDYLE FX, COMPL 04/27/2013 OPEN TREATMENT, COMPLEX MANDIBLE FX., MULTI APPROACH, W/ FIXATION performed by Kishore Neil MD at [facility] MAIN OR ??? PRO REVISE MEDIAN N/CARPAL TUNNEL SURG Left 01/23/2022 MEDIAN NERVE DECOMPRESSION (CARPAL TUNNEL RELEASE) (WRVU 4.97) performed by Sigifredo Garcia MD at [facility] OR ??? PRO SEC CLSR SURG WOUND/DEHSN EXTENSIVE/COMPLICATED Left 01/26/2022 SECONDARY CLOSURE SURGICAL WOUND OR DEHISCENCE, EXTENSIVE OR COMPLICATED, UPPER EXTREMITY (WRVU 12.04) performed by Sigifredo Garcia MD at [facility] MAIN OR Home Medications: No current [...] year, name, knows why he is at [facility], knows he is at [facility], follows complex commands. Very sleepy on exam, [...] his local injuriesand post-surgical changes than his SYSTEMS TEST ANALYST findings. No additional workup or intervention indicated [...] from the original note were not included. [facility] Operative Note Patient Name: Alix Holland : [id number] MR#: [id number] Case Date: 02/02/2022 Surgeon: Surgeon(s) and Role: * Hina Starks MD - Primary * Ama Dickerson PA - Physician Ceramic Sprayer * Terry Vázquez MD - Resident Preoperative [...] N/A Prescription Coverage: No Preferred Pharmacy: [facility] [facility], [place] - [address] [facility] [address] [facility] [address] [facility] [address] - [place], [place] - [address] [facility] 55 [place] [address] Plan for discharge is: Pending Hospital Course [...] changes of note to overall assessment. Dilaudid SCREEN TENDER with good effect on pain. Pt slept [...] w/ minimal effect. Pt switched over to SCREEN TENDER pump w/ some improvement in pain. Wound [...] Branch MD - 01/31/2022 11:09 AM EDT [facility] Operative Note Patient Name: Alix Holland : [id number] MR#: [id number] Case Date: 01/31/2022 Surgeon: Surgeon(s) and Role: [...] Patient was met in his room, green seminole was placed in the left upper and [...] Valdovinos MD - 01/29/2022 3:50 PM EDT [facility] Operative Note Patient Name: Alix Holland : [id number] MR#: [id number] Case Date: 01/29/2022 Surgeon: Surgeon(s) and Role: [...] after fentanyl overdose. He was taken to [facility] where he had a cardiac arrest,??ROSC, and??he was intubated and sedated. He??was then transferred to [facility] for further care. ??Labs showed he [...] then extubated and transferred back to the [facility] without any complication. Dr. Valdovinos [...] Modi MD 01/29/2022 Acute Pain Service Pager: [phone] I have seen and examined the patient, [...] Major MD 01/28/2022 Acute Pain Service Pager: [phone] Associated attestation - Nathan Ricardo MD - [...] Major MD 01/27/2022 Acute Pain Service Pager: [phone] Associated attestation - Nathan Ricardo MD - 02/03/2022 4:20 PM EDT I have seen and examined the patient, providing hutton components as outlined below. I have reviewed the resident???s above note; Consult Note - Adela Hackett DO - 01/27/2022 9:05 AM EDT Neurology Consultation Note - 01/27/2022 Patient name: Alix Holland Date of : 1990 PCP: None Primary Team #: ICU ([facility] #[id number]) CC: findings of CTH HPI: Alix Holland [...] he was following commands upon arrival to [facility] ICU. CTH showed bilateral symmetric globus pallidi [...] 4.1) performed by Sigifredo Garcia MD at [facility] MAIN OR ? ? PRO DEBRIDEMENT BONE MUSCLE &/FASCIA 20 SQ CM/< Left 01/26/2022 DEBRIDEMENT SKIN, SUBCU, MUSCLE, BONE, LOWER EXTREMITY (WRVU 4.1) performed by Sigifredo Garcia MD [facility] MAIN OR ??? PRO DECOMP FOREARM, 2 COMPART, W/O DEBRIDE Left 01/23/2022 FASCIOTOMY; FOREARM AND\OR WRIST, FLEXOR & EXTENS. COMP (WRVU 10.79) performed by Sigifredo Garcia MD at [facility] MAIN OR ??? PRO DECOMPRESS ANT/LAT+POST LEG CMPART Left 01/23/2022 FASCIOTOMY, LOWER LEG, ALL COMPARTMENTS (WRVU 7.82) performed by Sigifredo Garcia MD at [facility] MAIN OR ??? PRO INCIS OF HIP/THIGH FASCIA Left 01/23/2022 @FASCIOTOMY,THIGH OR HIP FOR COMPARTMENT SYNDROME (WRVU 12.89) performed by Sigifredo Garcia MD at [facility] MAIN OR ??? PRO OPEN TREAT MANDIBLE CONDYLE FX, COMPL 04/27/2013 OPEN TREATMENT, COMPLEX MANDIBLE FX., MULTI APPROACH, W/ FIXATION performed by Kishore Neil MD at [facility] MAIN OR ??? PRO REVISE MEDIAN N/CARPAL TUNNEL SURG Left 01/23/2022 MEDIAN NERVE DECOMPRESSION (CARPAL TUNNEL RELEASE) (WRVU 4.97) performed by Sigifredo Garcia MD at [facility] MAIN OR Home Medications: No current [...] year, name, knows why he is at [facility], knows he is at [facility], follows complex commands. CN: PERRL, EOMI Tongue [...] as documented. Josh Boyd D.O. Neurology Department [facility] [email or web address] Plan of Care - Halley Hoyt RN [...] Garcia MD - 01/26/2022 4:23 PM EDT [facility] Operative Note Patient Name: Alix Holland : [id number] MR#: [id number] Case Date: 01/26/2022 Surgeon: Surgeon(s) and Role: [...] after fentanyl overdose. He was taken to [facility] where he had a cardiac arrest, ROSC, and he was intubated and sedated. He was then transferred to [facility] for critical access hospital care. Labs showed he had hyperkalemia, [...] Insurance: N/A Prescription Coverage: Yes Preferred Pharmacy: [facility] [address] [facility] [address] - [place], [place] - [address] [facility] [address] [facility] [address] Plan for discharge is: Pending Hospital Course [...] Component Value Date COVID19 Detected (A) 01/23/2022 [id number] Not Detected 04/26/2021 Past medical History: Past [...] Alix) would be surrogate decision maker per [place] surrogate decision making law. (Only good for 180 days) Any patient receiving care at [facility] must abide by [place] law. The hierarchy for surrogate decision making [...] (i) The agent with financial power of privacy attorney or a conservator appointed in accordance [...] Current DME: none Home Address listed as: [address] [address] Social & Family Supports: All names listed below confirmed with patient as current and correct Extended Emergency Contact Information Primary Emergency Contact: Josefina Holland Relation: Mother Secondary Emergency Contact: Marylou Holland [facility] Relation: Sibling Father: Alix Holland [facility] Current Care Provided by: self Provides Primary [...] Insurance: N/A Prescription Coverage: No [facility]acy[facility] [address] [facility] [address] [facility] [address] [facility] [address] - [place], [place] - [address] [facility] [address] Status: Patient is a : No Primary [...] with transition of care planning. ARIN Lieberman, [facility]- Continuing Incident Response AnalystMercury Cell Cleaner of Neurology [phone] Consult Note - Adela Hackett DO - 01/25/2022 9:59 AM EDT Neurology Consultation Note - 01/25/2022 Patient name: Alix Holland Date of : 1990 PCP: None Primary Team #: ICU (Juan #[id number]) CC: findings of CTH HPI: Alix Holland [...] he was following commands upon arrival to [facility] ICU. CTH showed bilateral symmetric globus pallidi [...] 10.79) performed by Sigifredo Garcia MD at [facility] MAIN OR ??? PRO DECOMPRESS ANT/LAT+POST LEG CMPART Left 01/23/2022 FASCIOTOMY, LOWER LEG, ALL COMPARTMENTS (WRVU 7.82) performed by Sigifredo Garcia MD at [facility] OR ??? PRO INCIS OF HIP/THIGH FASCIA Left 01/23/2022 @FASCIOTOMY,THIGH OR HIP FOR COMPARTMENT SYNDROME (WRVU 12.89) performed by Sigifredo Garcia MD at [facility] OR ??? PRO OPEN TREAT MANDIBLE CONDYLE FX, COMPL 04/27/2013 OPEN TREATMENT, COMPLEX MANDIBLE FX., MULTI APPROACH, W/ FIXATION performed by Kishore Neil MD at [facility] OR ??? PRO REVISE MEDIAN N/CARPAL TUNNEL SURG Left 01/23/2022 MEDIAN NERVE DECOMPRESSION (CARPAL TUNNEL RELEASE) (WRVU 4.97) performed by Sigifredo Garcia MD at [facility] MAIN OR Home Medications: No current [...] Hackett, DO Neurology PGY-2 Neurology Consult Service# [id number] 01/25/2022 Associated attestation - Josh Boyd DO [...] as documented. Josh Boyd D.O. Neurology Department 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 Monitor weight Monitor maunel I was able to discuss plan with provider ARLETH Martinez pager #[phone]. All Active TF Orders: Nepro with goal [...] encounter: 113 kg (249 lb 1.9 oz). [place] Body Weight: 81 kg Usual Body Weight: [...] today for wound vacs. Estimated needs: Calories: 6847-6588 (20-25 kcal/kg IBW) for the first 7-10 [...] inpatient Thank you, Charlotte Castañeda RD Pager #:[phone] Plan of Care - Forest Blankenship RN [...] PCP: None Primary Team #: ICU (Juan #[id number]) CC: findings of CTH HPI: Alix Holland [...] he was following commands upon arrival to [facility] ICU. CTH showed bilateral symmetric globus pallidi [...] FIXATION performed by Kishore Neil MD at [facility] MAIN OR Home Medications: No current [...] >220,000 (H) 0 - 200 unit/L TSH [place] Result Value Ref Range TSH 7.69 (H) [...] Value Ref Range T&S only valid at [facility] H[facility] Triglyceride Result Value Ref Range Triglycerides [...] mcL Appearance UA Cloudy (A) Clear Spec Nora UA >=1.030 (A) 1.006 - 1.030 Color [...] as documented. Josh Boyd D.O. Neurology Department [facility] [email or web address] Op Note - Sigifredo Garcia MD - 01/23/2022 8:28 AM EDT [facility] Operative Note Patient Name: Alix Holland : [id number] MR#: [id number] Case Date: 01/23/2022 Surgeon: Surgeon(s) and Role: [...] after fentanyl overdose. He was taken to [facility] where he had a cardiac arrest, ROSC, and he was intubated and sedated. He was then transferred to [facility] for urther care. Labs showed he had hyperkalemia, acidosis, ALTHEA. There was concern for a swollen left forearm so orthopedics was consulted. On exam his forearm was firm, but exam was limited due to patient's mental status. Therefore [employer] pressure monitor was used to measure the [...] to the transverse carpal ligament. Using a [place] and [facility] retractors, the transverse carpal ligament was exposed [...] evaluation and treatment. Please page Orthopaedic consults ([phone]) with any questions or co ncerns. ?? [...] father afterfentanyl overdose. He was taken to [facility] where he had a cardiac arrest, ROSC, and he was intubated and sedated. He was then transferred to [facility] for further care. Labs showed he had [...] Team Description 06/09/2022 Procedure visit Neurology Summer Wiggisn MD [facility] NEUROLOGY DEPT [place], [place] [address] (Wo ) Pending Results Name [...] BLOOD GAS VENOUS ([facility]) STAT 01/26/2022 6:19 Re sults for this [...] are i n the results section. CT [place] Routine 01/24/2022 11:32 Re [...] P athologist Signature Neutrophils % 65.3 % [facility] Neutr Abs (ANC) 5.26 1.70 - [facility] 6.10 [facility] x10(3)/[facility] LABORATORY Lymphocytes % 17.2 % [facility] Lymphocytes Abs 1.4 0.9 - 3.2 [facility] x10(3)/[facility] LABORATORY Monocytes % 11.0 % [facility] Monocyte Abs 0.9 0.3 - 0.9 [facility] x10(3)/[facility] LABORATORY Eosinophils % 4.6 % [facility] Eosinophils Abs 0.4 0.0 - 0.4 [facility] x10(3)/[facility] LABORATORY Basophils % 0.7 % [facility] Basophils Abs 0.1 0.0 - 0.1 [facility] x10(3)/[facility] LABORATORY Immature Gran % 1.20 % [facility] Comment: Immature granulocytes(IG's)percentage an d absolute count will include metamyelocytes, myelocytes, and promyelo cytes. Blood smears from CBCs yielding IG's will be scanned manually for concor dance. If this scan disagrees with the automated IG or if promyelocytes are not ed, a manual differential will be performed. Gemini Gran Abs 0.10 (H) 0.00 - 0.04 x10(3)/[facility] LABORATORY Specimen Anatomical Collection Method Collection Time Receive d Time (Source) Location / / Volume Laterality Blood 03/23/2022 4:35 AM 5:10 EDT AM EDT Resulting Agency Comment Spec In Lab Jhony Carnes MD HEMATOLOGY ORDERABLES Performing Organization Address City/State/[place] [address] (ABNORMAL) Hemogram (03/23/2022 4:35 AM EDT) Analysis Performed At Patho logist Time Signature WBC 8.1 4.0 - 9.5 [facility] x10(3)/[facility] LABORATORY RBC 2.96 (L) 4.58 - [facility] 5.54 [facility] x10(6)/[facility] LABORATORY Hemoglobin 8.9 (L) 13.7 - [facility] 16.5 g/dL [facility] LABORATORY Hematocrit 26.2 (L) 40.5 - [facility] MANDO 48.5 % [facility] LABORATORY MCV 88.5 82.9 - [facility] 93.1 [facility] LABORATORY MCH 30.1 27.5 - [facility] 32.1 pg [facility] LABORATORY MCHC 34.0 32.0 - [facility] 35.7 g/dL [facility] LABORATORY Platelets 230 145 - 357 [facility] x10(3)/[facility] LABORATORY RDWSD 48.9 (H) 36.0 - [facility] 45.0 [facility] LABORATORY RDWCV 15.3 (H) 11.4 - [facility] 13.8 % [facility] LABORATORY MPV 9.8 7.6 - 12.9 [facility] LABORATORY nRBC % Auto 0.0 % [facility] LABORATORY nRBC Abs Auto 0.000 0.000 - [facility] 0.000 [facility] x10(3)/[facility] LABORATORY Specimen Anatomical Collection Method Collection Time Receive d Time (Source) Location / / Volume Laterality Blood 03/23/2022 4:35 AM 5:10 EDT AM EDT Resulting Agency Comment Spec In Lab Jhony Carnes MD HEMATOLOGY ORDERABLES Performing Organization Address City/State/[place] [address] (ABNORMAL) Basic Metabolic Panel (non-fasting) (03/23/2022 3:00 AM EDT) athologist Signature Glucose Lvl 102 65 - 199 [facility] mg/dL [facility] LABORATORY Comment: Diabetes: >=200 mg/dL plus symp toms BUN 15 10 - 20 mg/dL [facility] LABORATORY Creatinine 0.55 (L) 0.80 - 1.50 mg/dL [facility] LABORATORY Sodium 139 135 - 145 mmol/L [facility] LABORATORY Potassium 4.1 3.5 - 5.0 mmol/L [facility] LABORATORY Comment: Please note: ??Patients with WBC >100,00 0 may have falsely elevated Potassium levels. ??For accurate Potassium quantif ication in these patients send serum separator tube (gold top) for subsequent determinations. ??Contact the Clinical Chemistry Laboratory if there are any qu estions. Chloride 101 98 - 107 mmol/L [facility] LABORATORY CO2 25 22 - 31 mmol/L [facility] LABORATORY Anion Gap 13 5 - 15 mmol/L [facility] LABORATORY Calcium 9.6 8.5 - 10.5 mg/dL [facility] LABORATORY Estimated GFR 137 >=60 mL/min/1.73 m?? [facility] LABORATORY Comment: This patient's estimated [...] Organization Address City/State/[place] [address] (ABNORMAL) Differential, Automated (03/22/2022 4:15 AM EDT) [facility] gist Method Time Signature Neutrophils % 63.3 % [facility] LABORATORY Neutr Abs (ANC) 5.68 1.70 - [facility] 6.10 [facility] x10(3)/[facility] LABORATORY Lymphocytes % 17.7 % [facility] LABORATORY Lymphocytes Abs 1.6 0.9 - 3.2 [facility] x10(3)/[facility] LABORATORY Monocytes % 12.3 % [facility] LABORATORY Monocyte Abs 1.1 (H) 0.3 - 0.9 [facility] x10(3)/[facility] LABORATORY Eosinophils % 4.3 % [facility] LABORATORY Eosinophils Abs 0.4 0.0 - 0.4 [facility] x10(3)/[facility] LABORATORY Basophils % 0.7 % [facility] LABORATORY Basophils Abs 0.1 0.0 - 0.1 [facility] x10(3)/[facility] LABORATORY Immature Gran % 1.70 % [facility] LABORATORY Comment: Immature granulocytes(IG's)percentage an d absolute count will include metamyelocytes, myelocytes, and promyelo cytes. Blood smears from CBCs yielding IG's will be scanned manually for concor dance. If this scan disagrees with the automated IG or if promyelocytes are not ed, a manual differential will be performed. Gemini Gran Abs 0.15 (H) 0.00 - 0.04 x10(3)/[facility] LABORATORY Specimen Anatomical Collection Method Collection Time Receive d Time (Source) Location / / Volume Laterality Blood 03/22/2022 4:15 AM 4:35 EDT AM EDT Resulting Agency Comment Spec In Lab Batsheva Hill MD HEMATOLOGY ORDERABLES Performing Organization Address City/State/[place] [address] (ABNORMAL) Hemogram (03/22/2022 4:15 AM EDT) Analysis Performed At Patho logist Time Signature WBC 9.0 4.0 - 9.5 [facility] x10(3)/[facility] LABORATORY RBC 3.20 (L) 4.58 - [facility] 5.54 [facility] x10(6)/[facility] LABORATORY Hemoglobin 9.5 (L) 13.7 - [facility] 16.5 g/dL [facility] LABORATORY Hematocrit 28.0 (L) 40.5 - [facility] 48.5 % [facility] LABORATORY MCV 87.5 82.9 - [facility]O 93.1 [facility] LABORATORY MCH 29.7 27.5 - [facility] 32.1 pg [facility] LABORATORY MCHC 33.9 32.0 - [facility] 35.7 g/dL [facility] LABORATORY Platelets 248 145 - 357 [facility] x10(3)/[facility] LABORATORY RDWSD 47.8 (H) 36.0 - [facility]K 45.0 [facility] LABORATORY RDWCV 14.9 (H) 11.4 - [facility] 13.8 % [facility] LABORATORY MPV 8.8 7.6 - 12.9 [facility] LABORATORY nRBC % Auto 0.0 % [facility] LABORATORY nRBC Abs Auto 0.000 0.000 - [facility] 0.000 [facility] x10(3)/[facility] LABORATORY Specimen Anatomical Collection Method Collection Time Receive d Time (Source) Location / / Volume Laterality Blood 03/22/2022 4:15 AM 4:35 EDT AM EDT Resulting Agency Comment Spec In Lab Batsheva Hill MD HEMATOLOGY ORDERABLES Performing Organization Address City/State/ZIP [place] [address] (ABNORMAL) Basic Metabolic Panel (non-fasting) (03/22/2022 4:15 AM EDT) P athologist Signature Glucose Lvl 98 65 - 199 [facility] mg/dL [facility] LABORATORY Comment: Diabetes: >=200 mg/dL plus symp toms BUN 16 10 - 20 mg/dL [facility] LABORATORY Creatinine 0.52 (L) 0.80 - 1.50 mg/dL [facility] LABORATORY Sodium 137 135 - 145 mmol/L [facility] LABORATORY Potassium 4.0 3.5 - 5.0 mmol/L [facility] LABORATORY Comment: Please note: ??Patients with WBC >100,00 0 may have falsely elevated Potassium levels. ??For accurate Potassium quantif ication in these patients send serum separator tube (gold top) for subsequent determinations. ??Contact the Clinical Chemistry Laboratory if there are any qu estions. Chloride 100 98 - 107 mmol/L [facility] LABORATORY CO2 24 22 - 31 mmol/L [facility] LABORATORY Anion Gap 13 5 - 15 mmol/L [facility] LABORATORY Calcium 9.6 8.5 - 10.5 mg/dL [facility] LABORATORY Estimated GFR 139 >=60 mL/min/1.73 m?? [facility] LABORATORY Comment: This patient's estimated [...] Organization Address City/State/[place] [address] (ABNORMAL) Basic Metabolic Panel (non-fasting) (03/20/2022 12:27 PM EDT) P athologist Signature Glucose Lvl 94 65 - 199 [facility] mg/dL [facility] LABORATORY Comment: Diabetes: >=200 mg/dL plus symp toms BUN 13 10 - 20 mg/dL [facility] LABORATORY Creatinine 0.67 (L) 0.80 - 1.50 mg/dL [facility] LABORATORY Sodium 140 135 - 145 mmol/L [facility] LABORATORY Potassium 4.3 3.5 - 5.0 mmol/L [facility] LABORATORY Comment: Please note: ??Patients with WBC >100,00 0 may have falsely elevated Potassium levels. ??For accurate Potassium quantif ication in these patients send serum separator tube (gold top) for subsequent determinations. ??Contact the Clinical Chemistry Laboratory if there are any qu estions. Chloride 104 98 - 107 mmol/L [facility] LABORATORY CO2 23 22 - 31 mmol/L [facility] LABORATORY Anion Gap 13 5 - 15 mmol/L [facility] LABORATORY Calcium 9.6 8.5 - 10.5 mg/dL [facility] LABORATORY Estimated GFR 129 >=60 mL/min/1.73 m?? [facility] LABORATORY Comment: This patient's estimated [...] Organization Address City/State/[place] [address] Green Tube HOLD (03/20/2022 12:27 PM EDT) athologist Signature Green Hold Sample in [facility]. [facility] LABORATORY Comment: Collection date/time has been [...] Organization Address City/State/ZIP Code Phon e Number [address] Phosphorus (03/20/2022 12:00 PM EDT) P athologist Signature Phosphorus 3.8 2.5 - 4.5 [facility] mg/dL [facility] LABORATORY Specimen Anatomical Collection Method Collection Time Receive d Time (Source) Location / / Volume Laterality Blood 03/20/2022 12:00 03/20/2022 PM EDT 12:26 PM EDT Resulting Agency Comment Spec In Lab Jeanette Chatterjee MD CHEMISTRY ORDERABLES Performing Organization Address City/State/ZIP Code Phon e Number [address] Magnesium (03/20/2022 12:00 PM EDT) P athologist Signature Magnesium 0.75 0.69 - 1.07 [facility] mmol/L [facility] LABORATORY Specimen Anatomical Collection Method Collection Time Receive d Time (Source) Location / / Volume Laterality Blood 03/20/2022 12:00 03/20/2022 PM EDT 12:26 PM EDT Resulting Agency Comment Spec In Lab Jeanette Chatterjee MD CHEMISTRY ORDERABLES Performing Organization Address City/State/ZIP [place] [address] Vancomycin, trough (03/14/2022 3:09 PM EDT) P athologist Signature Vanc Trough 16.1 mg/L [facility] LABORATORY Comment: Therapeutic range for [...] Organization Address City/State/[place] [address] (ABNORMAL) Differential, Automated (03/13/2022 6:02 AM EDT) athologist Signature Neutrophils % 68.2 % [facility] LABORATORY Neutr Abs (ANC) 5.47 1.70 - [facility] 6.10 [facility] x10(3)[facility] LABORATORY Lymphocytes % 17.0 % [facility] LABORATORY Lymphocytes Abs 1.4 0.9 - 3.2 [facility] x10(3)/[facility] LABORATORY Monocytes % 8.0 % [facility] LABORATORY Monocyte Abs 0.6 0.3 - 0.9 [facility] x10(3)/[facility] LABORATORY Eosinophils % 4.2 % [facility] LABORATORY Eosinophils Abs 0.3 0.0 - 0.4 [facility] x10(3)[facility] LABORATORY Basophils % 0.5 % [facility] LABORATORY Basophils Abs 0.0 0.0 - 0.1 [facility] x10(3)/[facility] LABORATORY Immature Gran % 2.10 % [facility] LABORATORY Comment: Immature granulocytes(IG's)percentage an d absolute count will include metamyelocytes, myelocytes, and promyelo cytes. Blood smears from CBCs yielding IG's will be scanned manually for concor dance. If this scan disagrees with the automated IG or if promyelocytes are not ed, a manual differential will be performed. Gemini Gran Abs 0.17 (H) 0.00 - 0.04 x10(3)/[facility] LABORATORY Specimen Anatomical Collection Method Collection Time Receive d Time (Source) Location / / Volume Laterality Blood 03/13/2022 6:02 AM 2 6:17 EDT AM EDT Resulting Agency Comment Spec In Lab Nancy Chahal MD HEMATOLOGY ORDERABLES Performing Organization Address City/State/[place] [address] (ABNORMAL) Hemogram (03/13/2022 6:02 AM EDT) Analysis Performed At Patho logist Time Signature WBC 8.0 4.0 - 9.5 [facility] x10(3)/[facility] LABORATORY RBC 3.12 (L) 4.58 - [facility] 5.54 [facility] x10(6)/[facility] LABORATORY Hemoglobin 9.1 (L) 13.7 - [facility] 16.5 g/dL [facility] LABORATORY Hematocrit 27.5 (L) 40.5 - [facility] 48.5 % [facility] LABORATORY MCV 88.1 82.9 - [facility] M[facility] 93.1 [facility] LABORATORY MCH 29.2 27.5 - [facility] M[facility] 32.1 pg [facility] LABORATORY MCHC 33.1 32.0 - [facility] 35.7 g/dL [facility] LABORATORY Platelets 254 145 - 357 [facility] x10(3)/[facility] LABORATORY RDWSD 49.4 (H) 36.0 - [facility] 45.0 [facility] LABORATORY RDWCV 15.5 (H) 11.4 - [facility] 13.8 % [facility] LABORATORY MPV 8.4 7.6 - 12.9 [facility] nRBC % Auto 0.0 % [facility] LABORATORY nRBC Abs Auto 0.000 0.000 - [facility] 0.000 [facility] x10(3)/[facility] LABORATORY Specimen Anatomical Collection Method Collection Time Receive d Time (Source) Location / / Volume Laterality Blood 03/13/2022 6:02 AM 2 6:17 EDT AM EDT Resulting Agency Comment Spec In Lab Nancy Chahal MD HEMATOLOGY ORDERABLES Performing Organization Address City/State/ZIP Code Phon e Number [address] (ABNORMAL) Phosphorus (03/13/2022 6:02 AM EDT) athologist Signature Phosphorus 4.9 (H) 2.5 - 4.5 [facility] mg/dL [facility] LABORATORY Specimen Anatomical Collection Method Collection Time Receive d Time (Source) Location / / Volume Laterality Blood 03/13/2022 6:02 AM 2 6:17 EDT AM EDT Resulting Agency Comment Spec In Lab Floridalma Sandoval MD CHEMISTRY ORDERABLES Performing Organization Address City/State/ZIP Code Phon e Number [address] Magnesium (03/13/2022 6:02 AM EDT) athologist Signature Magnesium 0.70 0.69 - 1.07 [facility] mmol/L [facility] LABORATORY Specimen Anatomical Collection Method Collection Time Receive d Time (Source) Location / / Volume Laterality Blood 03/13/2022 6:02 AM 2 6:17 EDT AM EDT Resulting Agency Comment Spec In Lab Floridalma Sandoval MD CHEMISTRY ORDERABLES Performing Organization Address City/State/ZIP Code Phon e Number [address] (ABNORMAL) Basic Metabolic Panel (non-fasting) (03/13/2022 6:02 AM EDT) athologist Signature Glucose Lvl 100 65 - 199 [facility] mg/dL [facility] LABORATORY Comment: Diabetes: >=200 mg/dL plus symp toms BUN 12 10 - 20 mg/dL [facility] LABORATORY Creatinine 0.65 (L) 0.80 - 1.50 mg/dL [facility] LABORATORY Sodium 139 135 - 145 mmol/L [facility] LABORATORY Potassium 3.9 3.5 - 5.0 mmol/L [facility] LABORATORY Comment: Please note: ??Patients with WBC >100,00 0 may have falsely elevated Potassium levels. ??For accurate Potassium quantif ication in these patients send serum separator tube (gold top) for subsequent determinations. ??Contact the Clinical Chemistry Laboratory if there are any qu estions. Chloride 101 98 - 107 mmol/L [facility] LABORATORY CO2 25 22 - 31 mmol/L [facility] LABORATORY Anion Gap 13 5 - 15 mmol/L [facility] LABORATORY Calcium 9.6 8.5 - 10.5 mg/dL [facility] LABORATORY Estimated GFR 130 >=60 mL/min/1.73 m?? [facility] LABORATORY Comment: This patient's estimated [...] Organization Address City/State/[place] [address] (ABNORMAL) Differential, Automated (03/10/2022 5:45 AM EDT) [facility] gist Method Time Signature Neutrophils % 58.5 % [facility] LABORATORY Neutr Abs (ANC) 4.21 1.70 - [facility] 6.10 [facility] x10(3)/[facility] LABORATORY Lymphocytes % 17.8 % [facility] LABORATORY Lymphocytes Abs 1.3 0.9 - 3.2 [facility] x10(3)/[facility] LABORATORY Monocytes % 13.5 % [facility] LABORATORY Monocyte Abs 1.0 (H) 0.3 - 0.9 [facility] x10(3)/[facility] LABORATORY Eosinophils % 5.3 % [facility] LABORATORY Eosinophils Abs 0.4 0.0 - 0.4 [facility] x10(3)/[facility] LABORATORY Basophils % 0.6 % [facility] LABORATORY Basophils Abs 0.0 0.0 - 0.1 [facility] x10(3)/[facility] LABORATORY Immature Gran % 4.30 % [facility] LABORATORY Comment: Immature granulocytes(IG's)percentage an d absolute count will include metamyelocytes, myelocytes, and promyelo cytes. Blood smears from CBCs yielding IG's will be scanned manually for concor dance. If this scan disagrees with the automated IG or if promyelocytes are not ed, a manual differential will be performed. Gemini Gran Abs 0.31 (H) 0.00 - 0.04 x10(3)/[facility] LABORATORY Specimen Anatomical Collection Method Collection Time Receive d Time (Source) Location / / Volume Laterality Blood 03/10/2022 5:45 AM 6:05 EDT AM EDT Resulting Agency Comment Spec In Lab Nancy Chahal MD HEMATOLOGY ORDERABLES Performing Organization Address City/State/[place] [address] (ABNORMAL) Hemogram (03/10/2022 5:45 AM EDT) Analysis Performed At Patho logist Time Signature WBC 7.2 4.0 - 9.5 [facility] x10(3)/[facility] LABORATORY RBC 3.13 (L) 4.58 - [facility] 5.54 [facility] x10(6)/[facility] LABORATORY Hemoglobin 9.1 (L) 13.7 - [facility] 16.5 g/dL [facility] LABORATORY Hematocrit 27.3 (L) 40.5 - [facility] 48.5 % [facility] LABORATORY MCV 87.2 82.9 - [facility] 93.1 [facility] LABORATORY MCH 29.1 27.5 - [facility] 32.1 pg [facility] LABORATORY MCHC 33.3 32.0 - [facility] 35.7 g/dL [facility] LABORATORY Platelets 256 145 - 357 [facility] x10(3)/[facility] LABORATORY RDWSD 50.6 (H) 36.0 - [facility] 45.0 [facility] LABORATORY RDWCV 15.9 (H) 11.4 - [facility] 13.8 % [facility] LABORATORY MPV 8.5 7.6 - 12.9 [facility] LABORATORY nRBC % Auto 0.0 % [facility] LABORATORY nRBC Abs Auto 0.000 0.000 - [facility] 0.000 [facility] x10(3)/[facility] LABORATORY Specimen Anatomical Collection Method Collection Time Receive d Time (Source) Location / / Volume Laterality Blood 03/10/2022 5:45 AM 2 6:05 EDT AM EDT Resulting Agency Comment Spec In Lab Nancy Chahal MD HEMATOLOGY ORDERABLES Performing Organization Address City/State/ZIP Code Phon e Number [address] (ABNORMAL) Phosphorus (03/10/2022 5:45 AM EDT) P athologist Signature Phosphorus 4.6 (H) 2.5 - 4.5 [facility] mg/dL [facility] LABORATORY Specimen Anatomical Collection Method Collection Time Receive d Time (Source) Location / / Volume Laterality Blood 03/10/2022 5:45 AM 2 6:05 EDT AM EDT Resulting Agency Comment Spec In Lab Floridalma Sandoval MD CHEMISTRY ORDERABLES Performing Organization Address City/State/ZIP Code Phon e Number [address] Magnesium (03/10/2022 5:45 AM EDT) P athologist Signature Magnesium 0.77 0.69 - 1.07 [facility] mmol/L [facility] LABORATORY Specimen Anatomical Collection Method Collection Time Receive d Time (Source) Location / / Volume Laterality Blood 03/10/2022 5:45 AM 2 6:05 EDT AM EDT Resulting Agency Comment Spec In Lab Floridalma Sandoval MD CHEMISTRY ORDERABLES Performing Organization Address City/State/[place] [address] Basic Metabolic Panel (non-fasting) (03/10/2022 5:45 AM EDT) P athologist Signature Glucose Lvl 95 65 - 199 [facility] mg/dL [facility] LABORATORY Comment: Diabetes: >=200 mg/dL plus symp toms BUN 20 10 - 20 mg/dL [facility] LABORATORY Creatinine 0.85 0.80 - 1.50 mg/dL [facility] LABORATORY Sodium 142 135 - 145 mmol/L [facility] LABORATORY Potassium 4.0 3.5 - 5.0 mmol/L [facility] LABORATORY Comment: Please note: ??Patients with WBC >100,00 0 may have falsely elevated Potassium levels. ??For accurate Potassium quantif ication in these patients send serum separator tube (gold top) for subsequent determinations. ??Contact the Clinical Chemistry Laboratory if there are any qu estions. Chloride 103 98 - 107 mmol/L [facility] LABORATORY CO2 25 22 - 31 mmol/L [facility] LABORATORY Anion Gap 14 5 - 15 mmol/L [facility] LABORATORY Calcium 9.1 8.5 - 10.5 mg/dL [facility] LABORATORY Estimated GFR 120 >=60 mL/min/1.73 m?? [facility] LABORATORY Comment: This patient's estimated [...] Sandoval MD CHEMISTRY ORDERABLES Performing Organization Address City/[facility]/ZIP Code Phon e Number [address] Anaerobic Culture (03/05/2022 11:05 AM EDT) [facility] Method Time Signature Anaerobic No anaerobic [facility] Culture organisms [facility] LABORATORY Specimen Anatomical Collection Method Collection Time Receive d Time (Source) Location / / Volume Laterality Fluid 03/05/2022 11:05 03/05/2022 AM EDT 12:02 PM EDT Comment: Fluid from left thigh Resulting Agency Comment Spec In Lab Elaine Dos Santos MD MICROBIOLOGY - GENERAL ORDER JT Performing Organization Address City/[facility] [place] [address] (ABNORMAL) Body Fluid Culture, Aerobic (03/05/2022 11:05 AM EDT) Component Value Ref Test Analysis Performed At [facility] Method Time Signature Body Fluid Moderate Staphylococcus aureus, MRSA [facility] Culture Many Pseudomonas aeruginosa [facility] () [facility] LABORATORY Gram Stain Cytocentrifuge Gram Stain performed [facility] Neutrophils seen [place] Rare Gram Positive Cocci seen [facility] Rare Gram Negative Rods seen [facility] () LABORATORY Organism Staphylococcus [facility] aureus, MRSA (A) [facility] LABORATORY Organism Pseudomonas [facility] aeruginosa (A) [facility] LABORATORY Organism Gram Positive [facility] Cocci (A) [facility] LABORATORY Organism Gram Negative [facility] Rods (A) [facility] LABORATORY Specimen Anatomical Collection Method [...] Comment: Gentamicin is not a ppropriate for [place]-therapy. Staphylococcus aureus, mrsa Linezolid VITEK 2 METHOD [...] Organization Address City/State/[place] [address] HOSPITAL [address] (ABNORMAL) Basic Metabolic Panel (non-fasting) (03/04/2022 12:54 AM EDT) P athologist Signature Glucose Lvl 97 65 - 199 [facility] mg/dL [facility] LABORATORY Comment: Diabetes: >=200 mg/dL plus symp toms BUN 23 (H) 10 - 20 mg/dL [facility] LABORATORY Creatinine 1.23 0.80 - 1.50 mg/dL [facility] LABORATORY Sodium 141 135 - 145 mmol/L [facility] LABORATORY Potassium 3.7 3.5 - 5.0 mmol/L [facility] LABORATORY Comment: Please note: ??Patients with WBC >100,00 0 may have falsely elevated Potassium levels. ??For accurate Potassium quantif ication in these patients send serum separator tube (gold top) for subsequent determinations. ??Contact the Clinical Chemistry Laboratory if there are any qu estions. Chloride 101 98 - 107 mmol/L [facility] LABORATORY CO2 25 22 - 31 mmol/L [facility] LABORATORY Anion Gap 15 5 - 15 mmol/L [facility] LABORATORY Calcium 8.7 8.5 - 10.5 mg/dL [facility] LABORATORY Estimated GFR 81 >=60 mL/min/1.73 m?? [facility] LABORATORY Comment: This patient's estimated [...] Organization Address City/State/[place] [address] PICC Line: Contact Vascular Access Page [phone] Extremity to exclude: DO NOT use LEFT [...] the planned procedu re. Hand Hygiene: The division operations specialist did perform hand hygiene pr ior to line insertion. Catheter type: PICC Lot number: [id number] Procedure Technique: Skin was prepped with chlorhexidine. [...] interpretation and agree with the findings, Danielle Yen, MD at 03/03/2022 2:49 PM Thank you for letting us participate in the care of this patient. ??If you are a health care provider and have any questi ons regarding this report, please contact the number below. ??For patients who have questions please contact the health wound care center consultant that requested your imaging first. ? Narrative [...] ho have questions please contact the health wound care center consultant that requested your imaging first. Jayme Armstrong MD IMG FLUORO ORDERABLES (ABNORMAL) Differential, Automated (03/03/2022 4:34 AM EDT) [employer] Method Time Signature Neutrophils % 49.2 % [facility] LABORATORY Neutr Abs (ANC) 3.20 1.70 - [facility] 6.10 [facility] x10(3)/[facility] LABORATORY Lymphocytes % 23.5 % [facility] LABORATORY Lymphocytes Abs 1.5 0.9 - 3.2 [facility] x10(3)/[facility] LABORATORY Monocytes % 12.9 % [facility] LABORATORY Monocyte Abs 0.8 0.3 - 0.9 [facility] x10(3)/[facility] LABORATORY Eosinophils % 10.4 % [facility] LABORATORY Eosinophils Abs 0.7 (H) 0.0 - 0.4 [facility] x10(3)/[facility] LABORATORY Basophils % 0.8 % [facility] LABORATORY Basophils Abs 0.0 0.0 - 0.1 [facility] x10(3)/[facility] LABORATORY Immature Gran % 3.20 % [facility] LABORATORY Comment: Immature granulocytes(IG's)percentage an d absolute count will include metamyelocytes, myelocytes, and promyelo cytes. Blood smears from CBCs yielding IG's will be scanned manually for concor dance. If this scan disagrees with the automated IG or if promyelocytes are not ed, a manual differential will be performed. Gemini Gran Abs 0.21 (H) 0.00 - 0.04 x10(3)/[facility] LABORATORY Specimen Anatomical Collection Method Collection Time Receive d Time (Source) Location / / Volume Laterality Blood 03/03/2022 4:34 AM 2 4:42 EDT AM EDT Resulting Agency Comment Spec In Lab Collette Valente MD HEMATOLOGY ORDERABLES Performing Organization Address City/State/ZIP [place] [address] (ABNORMAL) Hemogram (03/03/2022 4:34 AM EDT) Analysis Performed At Patho logist Time Signature WBC 6.5 4.0 - 9.5 [facility] x[facility](3[facility] LABORATORY RBC 3.12 (L) 4.58 - [facility] 5.54 [facility] x10(6)/[facility] LABORATORY Hemoglobin 9.1 (L) 13.7 - [facility] 16.5 g/dL [facility] LABORATORY Hematocrit 26.8 (L) 40.5 - [facility] 48.5 % [facility] LABORATORY MCV 85.9 82.9 - [facility] 93.1 [facility] LABORATORY MCH 29.2 27.5 - [facility] 32.1 pg [facility] LABORATORY MCHC 34.0 32.0 - [facility] 35.7 g/dL [facility] LABORATORY Platelets 276 145 - 357 [facility] x10(3)/[facility] LABORATORY RDWSD 50.6 (H) 36.0 - [facility] 45.0 [facility] LABORATORY RDWCV 16.1 (H) 11.4 - [facility] 13.8 % [facility] LABORATORY MPV 7.8 7.6 - 12.9 [facility] LABORATORY nRBC % Auto 0.0 % [facility] LABORATORY nRBC Abs Auto 0.000 0.000 - [facility] 0.000 [facility] x10(3)/[facility] LABORATORY Specimen Anatomical Collection Method Collection Time Receive d Time (Source) Location / / Volume Laterality Blood 03/03/2022 4:34 AM 2 4:42 EDT AM EDT Resulting Agency Comment Spec In Lab Collette Valente MD HEMATOLOGY ORDERABLES Performing Organization Address City/State/ZIP [place] [address] Magnesium (03/03/2022 4:34 AM EDT) athologist Signature Magnesium 0.80 0.69 - 1.07 [facility] mmol/L [facility] LABORATORY Specimen Anatomical Collection Method Collection Time Receive d Time (Source) Location / / Volume Laterality Blood 03/03/2022 4:34 AM 2 4:42 EDT AM EDT Resulting Agency Comment Spec In Lab Jayme Armstrong MD CHEMISTRY ORDERABLES Performing Organization Address City/[facility]/ZIP Code Phon e Number [address] (ABNORMAL) Phosphorus (03/03/2022 4:34 AM EDT) athologist Signature Phosphorus 5.1 (H) 2.5 - 4.5 [facility] mg/dL [facility] LABORATORY Specimen Anatomical Collection Method Collection Time Receive d Time (Source) Location / / Volume Laterality Blood 03/03/2022 4:34 AM 2 4:42 EDT AM EDT Resulting Agency Comment Spec In Lab Jayme Armstrong MD CHEMISTRY ORDERABLES Performing Organization Address City/[facility]/ZIP [place] [address] (ABNORMAL) Basic Metabolic Panel (non-fasting) (03/03/2022 4:34 AM EDT) athologist Signature Glucose Lvl 105 65 - 199 [facility] mg/dL [facility] LABORATORY Comment: Diabetes: >=200 mg/dL plus symp toms BUN 28 (H) 10 - 20 mg/dL [facility] LABORATORY Creatinine 1.27 0.80 - 1.50 mg/dL [facility] LABORATORY Sodium 142 135 - 145 mmol/L [facility] LABORATORY Potassium 3.8 3.5 - 5.0 mmol/L [facility] LABORATORY Comment: Please note: ??Patients with WBC >100,00 0 may have falsely elevated Potassium levels. ??For accurate Potassium quantif ication in these patients send serum separator tube (gold top) for subsequent determinations. ??Contact the Clinical Chemistry Laboratory if there are any qu estions. Chloride 104 98 - 107 mmol/L [facility] LABORATORY CO2 25 22 - 31 mmol/L [facility] LABORATORY Anion Gap 13 5 - 15 mmol/L [facility] LABORATORY Calcium 9.0 8.5 - 10.5 mg/dL [facility] LABORATORY Estimated GFR 78 >=60 mL/min/1.73 m?? [facility] LABORATORY Comment: This patient's estimated [...] Organization Address City/State/ZIP [place] [address] Albumin Level (03/02/2022 4:23 AM EDT) P athologist Signature Albumin 3.3 3.2 - 5.2 [facility] g/dL [facility] LABORATORY Specimen Anatomical Collection Method Collection Time Receive d Time (Source) Location / / Volume Laterality Blood Venous Draw / 03/02/2022 4:23 AM 03/02/20 4:53 Unknown EDT AM EDT Resulting Agency Comment Spec In Lab Nancy Chahal MD CHEMISTRY ORDERABLES Performing Organization Address City/State/ZIP [place] [address] (ABNORMAL) Basic Metabolic Panel (non-fasting) (03/02/2022 4:23 AM EDT) P athologist Signature Glucose Lvl 99 65 - 199 [facility] mg/dL [facility] LABORATORY Comment: Diabetes: >=200 mg/dL plus symp toms BUN 32 (H) 10 - 20 mg/dL [facility] LABORATORY Creatinine 1.33 0.80 - 1.50 mg/dL [facility] LABORATORY Sodium 138 135 - 145 mmol/L [facility] LABORATORY Potassium 4.1 3.5 - 5.0 mmol/L [facility] LABORATORY Comment: Please note: ??Patients with WBC >100,00 0 may have falsely elevated Potassium levels. ??For accurate Potassium quantif ication in these patients send serum separator tube (gold top) for subsequent determinations. ??Contact the Clinical Chemistry Laboratory if there are any qu estions. Chloride 100 98 - 107 mmol/L [facility] LABORATORY CO2 25 22 - 31 mmol/L [facility] LABORATORY Anion Gap 13 5 - 15 mmol/L [facility] LABORATORY Calcium 9.0 8.5 - 10.5 mg/dL [facility] LABORATORY Estimated GFR 74 >=60 mL/min/1.73 m?? [facility] LABORATORY Comment: This patient's estimated [...] Armstrong MD CHEMISTRY ORDERABLES Performing Organization Address City/[facility]/[place] [address] [facility] [address] (ABNORMAL) Differential, Automated (03/01/2022 2:00 AM EDT) [employer] Method Time Signature Neutrophils % 65.1 % [facility] LABORATORY Neutr Abs (ANC) 6.08 1.70 - [facility] 6.10 [facility] x10(3)/[facility] LABORATORY Lymphocytes % 15.0 % [facility] LABORATORY Lymphocytes Abs 1.4 0.9 - 3.2 [facility] x10(3)/[facility] LABORATORY Monocytes % 12.0 % [facility] LABORATORY Monocyte Abs 1.1 (H) 0.3 - 0.9 [facility] x10(3)/[facility] LABORATORY Eosinophils % 5.4 % [facility] LABORATORY Eosinophils Abs 0.5 (H) 0.0 - 0.4 [facility] x10(3)/[facility] LABORATORY Basophils % 0.6 % [facility] LABORATORY Basophils Abs 0.1 0.0 - 0.1 [facility] x10(3)/[facility] LABORATORY Immature Gran % 1.90 % [facility] LABORATORY Comment: Immature granulocytes(IG's)percentage an d absolute count will include metamyelocytes, myelocytes, and promyelo cytes. Blood smears from CBCs yielding IG's will be scanned manually for concor dance. If this scan disagrees with the automated IG or if promyelocytes are not ed, a manual differential will be performed. Gemini Gran Abs 0.18 (H) 0.00 - 0.04 x10(3)/[facility] LABORATORY Specimen Anatomical Collection Method Collection Time Receive d Time (Source) Location / / Volume Laterality Blood 03/01/2022 2:00 AM 2:03 EDT AM EDT Resulting Agency Comment Spec In Lab Veto Hidalgo MD HEMATOLOGY ORDERABLES Performing Organization Address City/[facility]/[place] [address] (ABNORMAL) Hemogram (03/01/2022 2:00 AM EDT) Analysis Performed At Patho logist Time Signature WBC 9.3 4.0 - 9.5 [facility] x10(3)/[facility] LABORATORY RBC 2.92 (L) 4.58 - [facility] 5.54 [facility] x10(6)/[facility] LABORATORY Hemoglobin 8.5 (L) 13.7 - [facility] 16.5 g/dL [facility] LABORATORY Hematocrit 25.5 (L) 40.5 - [facility] 48.5 % [facility] LABORATORY MCV 87.3 82.9 - [facility] 93.1 [facility] LABORATORY MCH 29.1 27.5 - [facility] 32.1 pg [facility] LABORATORY MCHC 33.3 32.0 - [facility] 35.7 g/dL [facility] LABORATORY Platelets 288 145 - 357 [facility] x10(3)/[facility] LABORATORY RDWSD 52.2 (H) 36.0 - [facility] 45.0 [facility] LABORATORY RDWCV 16.4 (H) 11.4 - [facility] 13.8 % [facility] LABORATORY MPV 8.0 7.6 - 12.9 [facility] LABORATORY nRBC % Auto 0.0 % [facility] LABORATORY nRBC Abs Auto 0.000 0.000 - [facility] 0.000 [facility] x10(3)/[facility] LABORATORY Specimen Anatomical Collection Method Collection Time Receive d Time (Source) Location / / Volume Laterality Blood 03/01/2022 2:00 AM 2:03 EDT AM EDT Resulting Agency Comment Spec In Lab Veto Hidalgo MD HEMATOLOGY ORDERABLES Performing Organization Address City/State/[place] [address] Magnesium (03/01/2022 2:00 AM EDT) P athologist Signature Magnesium 0.77 0.69 - 1.07 [facility] mmol/L [facility] LABORATORY Specimen Anatomical Collection Method Collection Time Receive d Time (Source) Location / / Volume Laterality Blood 03/01/2022 2:00 AM 08/01/202 2 2:03 EDT AM EDT Resulting Agency Comment Spec In Lab Jayme Armstrong MD CHEMISTRY ORDERABLES Performing Organization Address City/State/ZIP Code Phon e Number [address] (ABNORMAL) Phosphorus (03/01/2022 2:00 AM EDT) athologist Signature Phosphorus 4.8 (H) 2.5 - 4.5 [facility] LABORATORY Specimen Anatomical Collection Method Collection Time Receive d Time (Source) Location / / Volume Laterality Blood 03/01/2022 2:00 AM 2 2:03 EDT AM EDT Resulting Agency Comment Spec In Lab Jayme Armstrong MD CHEMISTRY ORDERABLES Performing Organization Address [facility] [place] [address] (ABNORMAL) Basic Metabolic Panel (non-fasting) (03/01/2022 2:00 AM EDT) athologist Signature Glucose Lvl 106 65 - 199 [facility] mg/dL [facility] LABORATORY Comment: Diabetes: >=200 mg/dL plus symp toms BUN 38 (H) 10 - 20 mg/dL [facility] LABORATORY Creatinine 1.73 (H) 0.80 - 1.50 mg/dL [facility] LABORATORY Sodium 140 135 - 145 mmol/L [facility] LABORATORY Potassium 4.3 3.5 - 5.0 mmol/L [facility] LABORATORY Comment: Please note: ??Patients with WBC >100,00 0 may have falsely elevated Potassium levels. ??For accurate Potassium quantif ication in these patients send serum separator tube (gold top) for subsequent determinations. ??Contact the Clinical Chemistry Laboratory if there are any qu estions. Chloride 102 98 - 107 mmol/L [facility] LABORATORY CO2 24 22 - 31 mmol/L [facility] LABORATORY Anion Gap 14 5 - 15 mmol/L [facility] LABORATORY Calcium 9.2 8.5 - 10.5 mg/dL [facility] LABORATORY Estimated GFR 54 (L) >=60 mL/min/1.73 m?? [facility] LABORATORY Comment: This patient's estimated [...] Organization Address City/State/ZIP [place] [address] (ABNORMAL) Ferritin (03/01/2022 2:00 AM EDT) P athologist Signature Ferritin 693 (H) 30 - 400 [facility] ng/mL [facility] LABORATORY Comment: Pediatric reference ranges not verified at [facility], interpret with caution. Reference ranges for females [...] Organization Address City/State/ZIP Code Phon e Number [address] (ABNORMAL) Iron and TIBC (03/01/2022 2:00 AM EDT) Analysis Performed At Patho logist Time Signature Iron 21 (L) 45 - 160 [facility] mcg/dL [facility] LABORATORY TIBC 185 (L) 250 - 450 [facility] mcg/dL [facility] LABORATORY Iron Saturation 11 (L) 20 - 50 % [facility] LABORATORY Specimen Anatomical Collection Method Collection Time Receive d Time (Source) Location / / Volume Laterality Blood 03/01/2022 2:00 AM 2 2:03 EDT AM EDT Resulting Agency Comment Spec In Lab Allison Kelly MD CHEMISTRY ORDERABLES Performing Organization Address City/State/[place] [address] (ABNORMAL) Basic Metabolic Panel (non-fasting) (02/28/2022 3:43 AM EDT) athologist Signature Glucose Lvl 110 65 - 199 [facility] mg/dL [facility] LABORATORY Comment: Diabetes: >=200 mg/dL plus symp toms BUN 44 (H) 10 - 20 mg/dL [facility] LABORATORY Creatinine 1.92 (H) 0.80 - 1.50 mg/dL [facility] LABORATORY Sodium 138 135 - 145 mmol/L [facility] LABORATORY Potassium 4.3 3.5 - 5.0 mmol/L [facility] LABORATORY Comment: Please note: ??Patients with WBC >100,00 0 may have falsely elevated Potassium levels. ??For accurate Potassium quantif ication in these patients send serum separator tube (gold top) for subsequent determinations. ??Contact the Clinical Chemistry Laboratory if there are any qu estions. Chloride 103 98 - 107 mmol/L [facility] LABORATORY CO2 24 22 - 31 mmol/L [facility] LABORATORY Anion Gap 11 5 - 15 mmol/L [facility] LABORATORY Calcium 9.1 8.5 - 10.5 mg/dL [facility] LABORATORY Estimated GFR 47 (L) >=60 mL/min/1.73 m?? [facility] LABORATORY Comment: This patient's estimated [...] Organization Address City/State/ZIP Code Phon e Number [place] [id number] HOSP[address] LAB[address] Drive (ABNORMAL) Differential, Automated (02/27/2022 4:36 AM EDT) athologist Signature Neutrophils % 55.6 % [facility] LABORATORY Neutr Abs (ANC) 3.68 1.70 - [facility] 6.10 [facility] x10(3)/[facility] LABORATORY Lymphocytes % 21.3 % [facility] LABORATORY Lymphocytes Abs 1.4 0.9 - 3.2 [facility] x10(3)/[facility] LABORATORY Monocytes % 11.8 % [facility] LABORATORY Monocyte Abs 0.8 0.3 - 0.9 [facility] x10(3)/[facility] LABORATORY Eosinophils % 5.9 % [facility] LABORATORY Eosinophils Abs 0.4 0.0 - 0.4 [facility] x10(3)/[facility] LABORATORY Basophils % 0.9 % [facility] LABORATORY Basophils Abs 0.1 0.0 - 0.1 [facility] x10(3)/[facility] LABORATORY Immature Gran % 4.50 % [facility] LABORATORY Comment: Immature granulocytes(IG's)percentage an d absolute count will include metamyelocytes, myelocytes, and promyelo cytes. Blood smears from CBCs yielding IG's will be scanned manually for concor dance. If this scan disagrees with the automated IG or if promyelocytes are not ed, a manual differential will be performed. Gemini Gran Abs 0.30 (H) 0.00 - 0.04 x10(3)/[facility] LABORATORY Specimen Anatomical Collection Method Collection Time Receive d Time (Source) Location / / Volume Laterality Blood 02/27/2022 4:36 AM 4:48 EDT AM EDT Resulting Agency Comment Spec In Lab Veto Hidalgo MD HEMATOLOGY ORDERABLES Performing Organization Address City/State/[place] [address] (ABNORMAL) Hemogram (02/27/2022 4:36 AM EDT) Analysis Performed At Patho logist Time Signature WBC 6.6 4.0 - 9.5 [facility] x10(3)/[facility] LABORATORY RBC 2.74 (L) 4.58 - [facility] 5.54 [facility] x10(6)/[facility] LABORATORY Hemoglobin 8.0 (L) 13.7 - [facility] 16.5 g/dL [facility] LABORATORY Hematocrit 24.7 (L) 40.5 - [facility] 48.5 % [facility] LABORATORY MCV 90.1 82.9 - [facility] 93.1 [facility] LABORATORY MCH 29.2 27.5 - [facility] 32.1 pg [facility] LABORATORY MCHC 32.4 32.0 - [facility] 35.7 g/dL [facility] LABORATORY Platelets 267 145 - 357 [facility] x10(3)/[facility] LABORATORY RDWSD 56.6 (H) 36.0 - [facility] 45.0 [facility] LABORATORY RDWCV 17.2 (H) 11.4 - [facility] 13.8 % [facility] LABORATORY MPV 8.1 7.6 - 12.9 [facility] LABORATORY nRBC % Auto 0.0 % [facility] LABORATORY nRBC Abs Auto 0.000 0.000 - [facility] 0.000 [facility] x10(3)/[facility] LABORATORY Specimen Anatomical Collection Method Collection Time Receive d Time (Source) Location / / Volume Laterality Blood 02/27/2022 4:36 AM 2 4:48 EDT AM EDT Resulting Agency Comment Spec In Lab Veto Hidalgo MD HEMATOLOGY ORDERABLES Performing Organization Address City/[facility]/ZIP Code Phon e Number [address] Magnesium (02/27/2022 4:36 AM EDT) P athologist Signature Magnesium 0.74 0.69 - 1.07 [facility] mmol/L [facility] LABORATORY Specimen Anatomical Collection Method Collection Time Receive d Time (Source) Location / / Volume Laterality Blood 02/27/2022 4:36 AM 2 4:48 EDT AM EDT Resulting Agency Comment Spec In Lab Jayme Armstrong MD CHEMISTRY ORDERABLES Performing Organization Address City/[facility]/ZIP Code Phon e Number [address] Phosphorus (02/27/2022 4:36 AM EDT) P athologist Signature Phosphorus 4.5 2.5 - 4.5 [facility] mg/dL [facility] LABORATORY Specimen Anatomical Collection Method Collection Time Receive d Time (Source) Location / / Volume Laterality Blood 02/27/2022 4:36 AM 2 4:48 EDT AM EDT Resulting Agency Comment Spec In Lab Jayme Armstrong MD CHEMISTRY ORDERABLES Performing Organization Address City/[facility]/ZIP [facility] [place] [address] (ABNORMAL) Basic Metabolic Panel (non-fasting) (02/27/2022 4:36 AM EDT) P athologist Signature Glucose Lvl 108 65 - 199 [facility] mg/dL [facility] LABORATORY Comment: Diabetes: >=200 mg/dL plus symp toms BUN 57 (H) 10 - 20 mg/dL [facility] LABORATORY Creatinine 2.29 (H) 0.80 - 1.50 mg/dL [facility] LABORATORY Sodium 142 135 - 145 mmol/L [facility] LABORATORY Potassium 4.6 3.5 - 5.0 mmol/L [facility] LABORATORY Comment: Please note: ??Patients with WBC >100,00 0 may have falsely elevated Potassium levels. ??For accurate Potassium quantif ication in these patients send serum separator tube (gold top) for subsequent determinations. ??Contact the Clinical Chemistry Laboratory if there are any qu estions. Chloride 105 98 - 107 mmol/L [facility] CO2 24 22 - 31 mmol/L [facility] Anion Gap 13 5 - 15 mmol/L [facility] Calcium 8.7 8.5 - 10.5 mg/dL [facility] Estimated GFR 38 (L) >=60 mL/min/1.73 m?? [facility] Comment: This patient's estimated [...] Organization Address City/State/[place] [address] (ABNORMAL) Basic Metabolic Panel (non-fasting) (02/26/2022 5:30 AM EDT) P athologist Signature Glucose Lvl 101 65 - 199 [facility] mg/dL [facility] Comment: Diabetes: >=200 mg/dL plus symp toms BUN 60 (H) 10 - 20 mg/dL [facility] Creatinine 2.39 (H) 0.80 - 1.50 mg/dL [facility] Sodium 142 135 - 145 mmol/L [facility] Potassium 4.4 3.5 - 5.0 mmol/L [facility] Comment: Please note: ??Patients with WBC >100,00 0 may have falsely elevated Potassium levels. ??For accurate Potassium quantif ication in these patients send serum separator tube (gold top) for subsequent determinations. ??Contact the Clinical Chemistry Laboratory if there are any qu estions. Chloride 105 98 - 107 mmol/L [facility] CO2 23 22 - 31 mmol/L [facility] Anion Gap 14 5 - 15 mmol/L [facility] Calcium 8.7 8.5 - 10.5 mg/dL [facility] Estimated GFR 36 (L) >=60 mL/min/1.73 m?? [facility] Comment: This patient's estimated [...] Organization Address City/State/[place] [address] PTH (02/25/2022 5:30 AM EDT) athologist Signature PTH 65 15 - 65 [facility] pg/mL [facility] Specimen Anatomical Collection Method Collection Time Receive d Time (Source) Location / / Volume Laterality Blood Venous Draw / 02/25/2022 5:30 AM 02/26/20 22 Unknown EDT 12:09 PM EDT Resulting Agency Comment Spec In Lab Tex Robles MD CHEMISTRY ORDERABLES Performing Organization Address City/State/[place] [address] (ABNORMAL) Differential, Automated (02/25/2022 5:30 AM EDT) [employer] Method Time Signature Neutrophils % 67.3 % [facility] Neutr Abs (ANC) 6.38 (H) 1.70 - [facility] 6.10 [facility] x10(3)/[facility] LABORATORY Lymphocytes % 18.9 % [facility] Lymphocytes Abs 1.8 0.9 - 3.2 [facility] x10(3)/[facility] LABORATORY Monocytes % 8.7 % [facility] Monocyte Abs 0.8 0.3 - 0.9 [facility] x10(3)/[facility] LABORATORY Eosinophils % 1.8 % [facility] Eosinophils Abs 0.2 0.0 - 0.4 [facility] x10(3)/[facility] LABORATORY Basophils % 0.5 % [facility] Basophils Abs 0.0 0.0 - 0.1 [facility] x10(3)/[facility] LABORATORY Immature Gran % 2.80 % [facility] Comment: Immature granulocytes(IG's)percentage an d absolute count will include metamyelocytes, myelocytes, and promyelo cytes. Blood smears from CBCs yielding IG's will be scanned manually for concor dance. If this scan disagrees with the automated IG or if promyelocytes are not ed, a manual differential will be performed. Gemini Gran Abs 0.27 (H) 0.00 - 0.04 x10(3)/[facility] LABORATORY Specimen Anatomical Collection Method Collection Time Receive d Time (Source) Location / / Volume Laterality Blood 02/25/2022 5:30 AM 2 6:31 EDT AM EDT Resulting Agency Comment Spec In Lab Nancy Chahal MD HEMATOLOGY ORDERABLES Performing Organization Address City/State/ZIP [place] [address] (ABNORMAL) Hemogram (02/25/2022 5:30 AM EDT) Analysis Performed At Patho logist Time Signature WBC 9.5 4.0 - 9.5 [facility] x[facility](3)/[facility] LABORATORY RBC 2.63 (L) 4.58 - [facility] 5.54 [facility] x10(6)/[facility] LABORATORY Hemoglobin 7.5 (L) 13.7 - [facility] 16.5 g/dL [facility]ORY Hematocrit 23.5 (L) 40.5 - [facility] 48.5 % [facility]ORY MCV 89.4 82.9 - [facility] 93.1 [facility] LABORATORY MCH 28.5 27.5 - [facility] 32.1 pg [facility] LAB[facility]ATORY MCHC 31.9 (L) 32.0 - [facility] 35.7 g/dL [facility]ORY Platelets 299 145 - 357 [facility] x10(3)/[facility] LABORATORY RDWSD 55.2 (H) 36.0 - [facility] 45.0 [facility] LABORATORY RDWCV 17.1 (H) 11.4 - [facility] 13.8 % [facility] LABORATORY MPV 8.3 7.6 - 12.9 [facility] nRBC % Auto 0.0 % [facility] nRBC Abs Auto 0.000 0.000 - [facility] 0.000 [facility] x10(3)/[facility] LABORATORY Specimen Anatomical Collection Method Collection Time Receive d Time (Source) Location / / Volume Laterality Blood 02/25/2022 5:30 AM 2 6:31 EDT AM EDT Resulting Agency Comment Spec In Lab Nancy Chahal MD HEMATOLOGY ORDERABLES Performing Organization Address City/State/ZIP [place] [address] Magnesium (02/25/2022 5:30 AM EDT) athologist Signature Magnesium 0.81 0.69 - 1.07 [facility] mmol/L [facility]ORY Specimen Anatomical Collection Method Collection Time Receive d Time (Source) Location / / Volume Laterality Blood 02/25/2022 5:30 AM 2 6:31 EDT AM EDT Resulting Agency Comment Spec In Lab Jayme Armstrong MD CHEMISTRY ORDERABLES Performing Organization Address City/State/ZIP Code Phon e Number [address] (ABNORMAL) Phosphorus (02/25/2022 5:30 AM EDT) athologist Signature Phosphorus 4.9 (H) 2.5 - 4.5 [facility]ORY Specimen Anatomical Collection Method Collection Time Receive d Time (Source) Location / / Volume Laterality Blood 02/25/2022 5:30 AM 2 6:31 EDT AM EDT Resulting Agency Comment Spec In Lab Jayme Armstrong MD CHEMISTRY ORDERABLES Performing Organization Address City/State/ZIP Code Phon e Number [address] (ABNORMAL) Basic Metabolic Panel (non-fasting) (02/25/2022 5:30 AM EDT) athologist Signature Glucose Lvl 104 65 - 199 [facility] mg/dL [facility] Comment: Diabetes: >=200 mg/dL plus symp toms BUN 65 (H) 10 - 20 mg/dL [facility] Creatinine 2.94 (H) 0.80 - 1.50 mg/dL [facility] Sodium 139 135 - 145 mmol/L [facility] Potassium 4.2 3.5 - 5.0 mmol/L [facility] Comment: Please note: ??Patients with WBC >100,00 0 may have falsely elevated Potassium levels. ??For accurate Potassium quantif ication in these patients send serum separator tube (gold top) for subsequent determinations. ??Contact the Clinical Chemistry Laboratory if there are any qu estions. Chloride 102 98 - 107 mmol/L [facility] CO2 23 22 - 31 mmol/L [facility] Anion Gap 14 5 - 15 mmol/L [facility] Calcium 8.4 (L) 8.5 - 10.5 mg/dL [facility] Estimated GFR 28 (L) >=60 mL/min/1.73 m?? [facility] Comment: This patient's estimated [...] Organization Address City/State/[place] [address] (ABNORMAL) Basic Metabolic Panel (non-fasting) (02/24/2022 5:45 AM EDT) P athologist Signature Glucose Lvl 102 65 - 199 [facility] mg/dL [facility] Comment: Diabetes: >=200 mg/dL plus symp toms BUN 61 (H) 10 - 20 mg/dL [facility] Creatinine 2.96 (H) 0.80 - 1.50 mg/dL [facility] Comment: result rechecked-sf Sodium 137 135 - 145 mmol/L [facility] Potassium 4.5 3.5 - 5.0 mmol/L [facility] Comment: Please note: ??Patients with WBC >100,00 0 may have falsely elevated Potassium levels. ??For accurate Potassium quantif ication in these patients send serum separator tube (gold top) for subsequent determinations. ??Contact the Clinical Chemistry Laboratory if there are any qu estions. Chloride 102 98 - 107 mmol/L [facility] CO2 22 22 - 31 mmol/L [facility] Anion Gap 13 5 - 15 mmol/L [facility] Calcium 8.3 (L) 8.5 - 10.5 mg/dL [facility] Estimated GFR 28 (L) >=60 mL/min/1.73 m?? [facility] Comment: This patient's estimated [...] Organization Address City/State/[place] [address] SCAN DOC: LAB (02/24/2022 12:00 AM EDT) Narrative This result has an attachment that is no t available. Unknown MEDIA MGR SCAN EXT ORDR/RSLT (ABNORMAL) Differential, Automated (02/23/2022 5:00 AM EDT) athologist Signature Neutrophils % 69.0 % [facility] Neutr Abs (ANC) 5.59 1.70 - [facility] 6.10 [facility] x10(3)/[facility] LABORATORY Lymphocytes % 12.8 % [facility] Lymphocytes Abs 1.0 0.9 - 3.2 [facility] x10(3)/[facility] LABORATORY Monocytes % 10.0 % [facility] Monocyte Abs 0.8 0.3 - 0.9 [facility] x10(3)/[facility] LABORATORY Eosinophils % 2.6 % [facility] Eosinophils Abs 0.2 0.0 - 0.4 [facility] x10(3)/[facility] LABORATORY Basophils % 0.7 % [facility] Basophils Abs 0.1 0.0 - 0.1 [facility] x10(3)/[facility] LABORATORY Immature Gran % 4.90 % [facility] Comment: Immature granulocytes(IG's)percentage an d absolute count will include metamyelocytes, myelocytes, and promyelo cytes. Blood smears from CBCs yielding IG's will be scanned manually for concor dance. If this scan disagrees with the automated IG or if promyelocytes are not ed, a manual differential will be performed. Gemini Gran Abs 0.40 (H) 0.00 - 0.04 x10(3)/[facility] LABORATORY Specimen Anatomical Collection Method Collection Time Receive d Time (Source) Location / / Volume Laterality Blood 02/23/2022 5:00 AM 5:31 EDT AM EDT Resulting Agency Comment Spec In Lab Kaitlyn Rock MD HEMATOLOGY ORDERABLES Performing Organization Address City/State/[place] [address] (ABNORMAL) Hemogram (02/23/2022 5:00 AM EDT) Analysis Performed At Patho logist Time Signature WBC 8.1 4.0 - 9.5 [facility] x10(3)/[facility] LABORATORY RBC 2.50 (L) 4.58 - [facility] 5.54 [facility] x10(6)/[facility] LABORATORY Hemoglobin 7.0 (L) 13.7 - [facility] 16.5 g/dL [facility] Hematocrit 22.4 (L) 40.5 - [facility] [place] 48.5 % [facility]ORY MCV 89.6 82.9 - [facility] 93.1 [facility] LABORATORY MCH 28.0 27.5 - [facility] [place] 32.1 pg [facility] LABORATORY MCHC 31.3 (L) 32.0 - [facility] 35.7 g/dL [facility] Platelets 300 145 - 357 [facility] x10(3)/[facility] LABORATORY RDWSD 57.0 (H) 36.0 - [facility] 45.0 [facility] LABORATORY RDWCV 17.5 (H) 11.4 - [facility] 13.8 % [facility] LABORATORY MPV 8.4 7.6 - 12.9 [facility] LABORATORY nRBC % Auto 0.0 % [facility] nRBC Abs Auto 0.000 0.000 - [facility] 0.000 [facility] x10(3)/[facility] LABORATORY Specimen Anatomical Collection Method Collection Time Receive d Time (Source) Location / / Volume Laterality Blood 02/23/2022 5:00 AM 5:31 EDT AM EDT Resulting Agency Comment Spec In Lab Kaitlyn Rock MD HEMATOLOGY ORDERABLES Performing Organization Address City/State/ZIP [place] [address] (ABNORMAL) Basic Metabolic Panel (non-fasting) (02/23/2022 5:00 AM EDT) P athologist Signature Glucose Lvl 113 65 - 199 [facility] mg/dL [facility] Comment: Diabetes: >=200 mg/dL plus symp toms BUN 59 (H) 10 - 20 mg/dL [facility] Creatinine 3.90 (H) 0.80 - 1.50 mg/dL [facility] Sodium 137 135 - 145 mmol/L [facility] Potassium 4.6 3.5 - 5.0 mmol/L [facility] Comment: Please note: ??Patients with WBC >100,00 0 may have falsely elevated Potassium levels. ??For accurate Potassium quantif ication in these patients send serum separator tube (gold top) for subsequent determinations. ??Contact the Clinical Chemistry Laboratory if there are any qu estions. Chloride 102 98 - 107 mmol/L [facility] CO2 24 22 - 31 mmol/L [facility] Anion Gap 11 5 - 15 mmol/L [facility] Calcium 8.3 (L) 8.5 - 10.5 mg/dL [facility] Estimated GFR 20 (L) >=60 mL/min/1.73 m?? [facility] Comment: This patient's estimated [...] Organization Address City/State/[place] [address] (ABNORMAL) Phosphorus (02/23/2022 5:00 AM EDT) P athologist Signature Phosphorus 6.2 (H) 2.5 - 4.5 [facility] mg/dL [facility] Specimen Anatomical Collection Method Collection Time Receive d Time (Source) Location / / Volume Laterality Blood 02/23/2022 5:00 AM 2 5:31 EDT AM EDT Resulting Agency Comment Spec In Lab Gela Novak MD CHEMISTRY ORDERABLES Performing Organization Address City/State/ZIP Code Phon e Number [address] Magnesium (02/23/2022 5:00 AM EDT) P athologist Signature Magnesium 0.93 0.69 - 1.07 [facility] mmol/L [facility]ORY Specimen Anatomical Collection Method Collection Time Receive d Time (Source) Location / / Volume Laterality Blood 02/23/2022 5:00 AM 5:31 EDT AM EDT Resulting Agency Comment Spec In Lab Gela Novak MD CHEMISTRY ORDERABLES Performing Organization Address City/State/ZIP Code Phon e Number [address] (ABNORMAL) Differential, Automated (02/22/2022 1:08 AM EDT) Patholo gist Method Time Signature Neutrophils % 64.0 % [facility] Neutr Abs (ANC) 5.73 1.70 - [facility] 6.10 [facility] x10(3)/[facility] LABORATORY Lymphocytes % 15.0 % [facility] Lymphocytes Abs 1.3 0.9 - 3.2 [facility] x10(3)/[facility] LABORATORY Monocytes % 10.9 % [facility] Monocyte Abs 1.0 (H) 0.3 - 0.9 [facility] x10(3)/[facility] LABORATORY Eosinophils % 3.0 % [facility] Eosinophils Abs 0.3 0.0 - 0.4 [facility] x10(3)/[facility] LABORATORY Basophils % 0.6 % [facility] Basophils Abs 0.0 0.0 - 0.1 [facility] x10(3)/[facility] LABORATORY Immature Gran % 6.50 % [facility] Comment: Immature granulocytes(IG's)percentage an d absolute count will include metamyelocytes, myelocytes, and promyelo cytes. Blood smears from CBCs yielding IG's will be scanned manually for concor dance. If this scan disagrees with the automated IG or if promyelocytes are not ed, a manual differential will be performed. Gemini Gran Abs 0.58 (H) 0.00 - 0.04 x10(3)/[facility] LABORATORY Specimen Anatomical Collection Method Collection Time Receive d Time (Source) Location / / Volume Laterality Blood 02/22/2022 1:08 AM 1:25 EDT AM EDT Resulting Agency Comment Spec In Lab Kaitlyn Rock MD HEMATOLOGY ORDERABLES Performing Organization Address City/State/[place] [address] (ABNORMAL) Hemogram (02/22/2022 1:08 AM EDT) Analysis Performed At Patho logist Time Signature WBC 8.9 4.0 - 9.5 [facility] x10(3)/[facility] LABORATORY RBC 2.56 (L) 4.58 - [facility] 5.54 [facility] x10(6)/[facility] LABORATORY Hemoglobin 7.3 (L) 13.7 - [facility] 16.5 g/dL [facility]ORY Hematocrit 22.7 (L) 40.5 - [facility] 48.5 % [facility] LABORATORY MCV 88.7 82.9 - [facility] 93.1 [facility] LABORATORY MCH 28.5 27.5 - [facility] 32.1 pg [facility] LABORATORY MCHC 32.2 32.0 - [facility] 35.7 g/dL [facility]ORY Platelets 317 145 - 357 [facility] x10(3)/[facility] LABORATORY RDWSD 58.2 (H) 36.0 - [facility] 45.0 [facility] LABORATORY RDWCV 17.9 (H) 11.4 - [facility] 13.8 % [facility] LABORATORY MPV 8.5 7.6 - 12.9 [facility] LABORATORY nRBC % Auto 0.0 % [facility] nRBC Abs Auto 0.000 0.000 - [facility] 0.000 [facility] x10(3)/[facility] LABORATORY Specimen Anatomical Collection Method Collection Time Receive d Time (Source) Location / / Volume Laterality Blood 02/22/2022 1:08 AM 2 1:25 EDT AM EDT Resulting Agency Comment Spec In Lab Kaitlyn Rock MD HEMATOLOGY ORDERABLES Performing Organization Address City/State/[place] [address] (ABNORMAL) Basic Metabolic Panel (non-fasting) (02/22/2022 1:08 AM EDT) athologist Signature Glucose Lvl 95 65 - 199 [facility] mg/dL [facility]ORY Comment: Diabetes: >=200 mg/dL plus symp toms BUN 55 (H) 10 - 20 mg/dL [facility]ORY Creatinine 3.91 (H) 0.80 - 1.50 mg/dL [facility] Sodium 137 135 - 145 mmol/L [facility] Potassium 5.1 (H) 3.5 - 5.0 mmol/L [facility] Comment: Please note: ??Patients with WBC >100,00 0 may have falsely elevated Potassium levels. ??For accurate Potassium quantif ication in these patients send serum separator tube (gold top) for subsequent determinations. ??Contact the Clinical Chemistry Laboratory if there are any qu estions. Chloride 101 98 - 107 mmol/L [facility] CO2 23 22 - 31 mmol/L [facility] Anion Gap 13 5 - 15 mmol/L [facility]ORY Calcium 8.2 (L) 8.5 - 10.5 mg/dL [facility] Estimated GFR 20 (L) >=60 mL/min/1.73 m?? [facility] Comment: This patient's estimated [...] Novak MD CHEMISTRY ORDERABLES Performing Organization Address City/[facility]/ZIP Code Phon e Number [address] (ABNORMAL) Phosphorus (02/22/2022 1:08 AM EDT) P athologist Signature Phosphorus 5.9 (H) 2.5 - 4.5 [facility] mg/dL [facility] LABORATORY Specimen Anatomical Collection Method Collection Time Receive d Time (Source) Location / / Volume Laterality Blood 02/22/2022 1:08 AM 2 1:25 EDT AM EDT Resulting Agency Comment Spec In Lab Gela Novak MD CHEMISTRY ORDERABLES Performing Organization Address City/State/ZIP [place] [address] Magnesium (02/22/2022 1:08 AM EDT) P athologist Signature Magnesium 0.90 0.69 - 1.07 [facility] mmol/L [facility] LABORATORY Specimen Anatomical Collection Method Collection Time Receive d Time (Source) Location / / Volume Laterality Blood 02/22/2022 1:08 AM 2 1:25 EDT AM EDT Resulting Agency Comment Spec In Lab Gela Novak MD CHEMISTRY ORDERABLES Performing Organization Address City/State/ZIP [place] [address] Transfuse RBC (02/21/2022 4:53 PM EDT) Gela Novak MD NURSING TREATMENT ORDERABLES - BLOOD ADMIN Transfuse RBC (02/21/2022 4:53 PM EDT) Gela Novak MD NURSING TREATMENT ORDERABLES - BLOOD ADMIN Type and Screen Validity (02/21/2022 12:40 PM EDT) [employer] Method Time Signature T&S only valid [facility] LABORATORY Comment: This Type and Screen result is only valid at the [facility] Specimen Anatomical Collection Method Collection Time Receive d Time (Source) Location / / Volume Laterality Blood 02/21/2022 12:40 02/21/2022 1:12 PM EDT PM EDT Resulting Agency Comment Spec In Lab Melissa Gonzales MD BLOOD BANK ORDERABLES Performing Organization Address City/State/ZIP Code Phon e Number [address] ABORH Recheck Status (02/21/2022 12:40 PM EDT) [facility] Signature ABORH Type Completed [facility] LABORATORY Specimen Anatomical Collection Method Collection Time Receive d Time (Source) Location / / Volume Laterality Blood 02/21/2022 12:40 02/21/2022 1:12 PM EDT PM EDT Resulting Agency Comment Spec In Lab Melissa Gonzales MD BLOOD BANK ORDERABLES Performing Organization Address City/[facility]/ZIP Code Phon e Number [place] [phone] HOSP[address] LAB[address] Antibody screen (02/21/2022 12:40 PM EDT) [facility] Signature Ab Screen Negative [facility] LABORATORY Expires at 02/24/2022 [facility] [id number] on: [facility] LABORATORY Specimen Anatomical Collection Method Collection Time Receive d Time (Source) Location / / Volume Laterality Blood 02/21/2022 12:40 02/21/2022 1:12 PM EDT PM EDT Resulting Agency Comment Spec In Lab Melissa Gonzales MD BLOOD BANK ORDERABLES Performing Organization Address City/[facility]/ZIP Code Phon e Number [place] [phone] HOSPITAL LAB[address] Drive ABO/Rh Typing (02/21/2022 12:40 PM EDT) athologist Signature ABORh Type A Pos [facility]ORY Specimen Anatomical Collection Method Collection Time Receive d Time (Source) Location / / Volume Laterality Blood 02/21/2022 12:40 02/21/2022 1:12 PM EDT PM EDT Resulting Agency Comment Spec In Lab Melissa Gonzales MD BLOOD BANK ORDERABLES Performing Organization Address City/[facility]/ZIP Code Phon e Number [place] [address] Prepare RBC (02/21/2022 12:20 PM EDT) athologist Signature Dispensed? Yes [facility] LABORATORY Specimen Anatomical Collection Method Collection Time Receive d Time (Source) Location / / Volume Laterality Blood 02/21/2022 12:20 02/21/2022 PM EDT 12:19 PM EDT Gela Novak MD BLOOD BANK ORDERABLES Performing Organization Address City/[facility]/ZIP [place] [address] (ABNORMAL) Albumin Level (02/21/2022 3:38 AM EDT) athologist Signature Albumin 2.3 (L) 3.2 - 5.2 [facility] g/dL [facility] LABORATORY Specimen Anatomical Collection Method Collection Time Receive d Time (Source) Location / / Volume Laterality Blood Venous Draw / 02/21/2022 3:38 AM 02/22/20 22 3:47 Unknown EDT AM EDT Resulting Agency Comment Spec In Lab Bambi Pressley MD CHEMISTRY ORDERABLES Performing Organization Address City/[facility]/ZIP [place] [address] (ABNORMAL) Differential, Automated (02/21/2022 3:38 AM EDT) P athologist Signature Neutrophils % 67.8 % [facility] Neutr Abs (ANC) 6.03 1.70 - [facility] 6.10 [facility] x10(3)/[facility] LABORATORY Lymphocytes % 13.5 % [facility]OR[facility]ORY Lymphocytes Abs 1.2 0.9 - 3.2 [facility] x10(3)/[facility] LABORATORY Monocytes % 9.4 % [facility] Monocyte Abs 0.8 0.3 - 0.9 [facility] x10(3)/[facility] LABORATORY Eosinophils % 3.1 % [facility] Eosinophils Abs 0.3 0.0 - 0.4 [facility] x10(3)/[facility] LABORATORY Basophils % 0.6 % [facility] Basophils Abs 0.0 0.0 - 0.1 [facility] x10(3)/[facility] LABORATORY Immature Gran % 5.60 % [facility] Comment: Immature granulocytes(IG's)percentage an d absolute count will include metamyelocytes, myelocytes, and promyelo cytes. Blood smears from CBCs yielding IG's will be scanned manually for concor dance. If this scan disagrees with the automated IG or if promyelocytes are not ed, a manual differential will be performed. Gemini Gran Abs 0.50 (H) 0.00 - 0.04 x10(3)/[facility] LABORATORY Specimen Anatomical Collection Method Collection Time Receive d Time (Source) Location / / Volume Laterality Blood 02/21/2022 3:38 AM 2 3:46 EDT AM EDT Resulting Agency Comment Spec In Lab Kaitlyn Rock MD HEMATOLOGY ORDERABLES Performing Organization Address City/State/ZIP Code Phon e Number [place] [id number] (ABNORMAL) Hemogram (02/21/2022 3:38 AM EDT) Analysis Performed At Patho logist Time Signature WBC 8.9 4.0 - 9.5 [facility] x10(3)/[facility] LABORATORY RBC 2.37 (L) 4.58 - [facility] 5.54 [facility] x10(6)/[facility] LABORATORY Hemoglobin 6.9 (L) 13.7 - [facility] 16.5 g/dL [facility] LABORATORY Hematocrit 21.4 (L) 40.5 - [facility] 48.5 % [facility] LABORATORY MCV 90.3 82.9 - [facility] 93.1 fL [facility] LABORATORY MCH 29.1 27.5 - [facility] 32.1 pg [facility] LABORATORY MCHC 32.2 32.0 - [facility] 35.7 g/dL [facility] LABORATORY Platelets 273 145 - 357 [facility] x10(3)/[facility] LABORATORY RDWSD 50.5 (H) 36.0 - [facility] 45.0 [facility] LABORATORY RDWCV 15.7 (H) 11.4 - [facility] 13.8 % [facility] LABORATORY MPV 8.5 7.6 - 12.9 [facility] LABORATORY nRBC % Auto 0.0 % [facility] LABORATORY nRBC Abs Auto 0.000 0.000 - [facility] 0.000 [facility] x10(3)/[facility] LABORATORY Specimen Anatomical Collection Method Collection Time Receive d Time (Source) Location / / Volume Laterality Blood 02/21/2022 3:38 AM 3:46 EDT AM EDT Resulting Agency Comment Spec In Lab Kaitlyn Rock MD HEMATOLOGY ORDERABLES Performing Organization Address City/State/ZIP [place] [address] (ABNORMAL) Basic Metabolic Panel (non-fasting) (02/21/2022 3:38 AM EDT) P athologist Signature Glucose Lvl 96 65 - 199 [facility] mg/dL [facility] LABORATORY Comment: Diabetes: >=200 mg/dL plus symp toms BUN 46 (H) 10 - 20 mg/dL [facility] LABORATORY Creatinine 3.68 (H) 0.80 - 1.50 mg/dL [facility] LABORATORY Sodium 136 135 - 145 mmol/L [facility] LABORATORY Potassium 4.9 3.5 - 5.0 mmol/L [facility] LABORATORY Comment: Please note: ??Patients with WBC >100,00 0 may have falsely elevated Potassium levels. ??For accurate Potassium quantif ication in these patients send serum separator tube (gold top) for subsequent determinations. ??Contact the Clinical Chemistry Laboratory if there are any qu estions. Chloride 101 98 - 107 mmol/L [facility] CO2 26 22 - 31 mmol/L [facility] Anion Gap 9 5 - 15 mmol/L [facility] LABORATORY Calcium 8.1 (L) 8.5 - 10.5 mg/dL [facility] LABORATORY Estimated GFR 22 (L) >=60 mL/min/1.73 m?? [facility] Comment: This patient's estimated [...] Organization Address City/State/ZIP Code Phon e Number [address] (ABNORMAL) Phosphorus (02/21/2022 3:38 AM EDT) P athologist Signature Phosphorus 5.1 (H) 2.5 - 4.5 [facility] mg/dL [facility] LABORATORY Specimen Anatomical Collection Method Collection Time Receive d Time (Source) Location / / Volume Laterality Blood 02/21/2022 3:38 AM 2 3:46 EDT AM EDT Resulting Agency Comment Spec In Lab Gela Novak MD CHEMISTRY ORDERABLES Performing Organization Address City/State/ZIP Code Phon e Number [address] Magnesium (02/21/2022 3:38 AM EDT) P athologist Signature Magnesium 0.92 0.69 - 1.07 [facility] mmol/L [facility] LABORATORY Specimen Anatomical Collection Method Collection Time Receive d Time (Source) Location / / Volume Laterality Blood 02/21/2022 3:38 AM 2 3:46 EDT AM EDT Resulting Agency Comment Spec In Lab Gela Novak MD CHEMISTRY ORDERABLES Performing Organization Address City/State/[place] [address] (ABNORMAL) Differential, Automated (02/20/2022 4:45 AM EDT) [employer] Method Time Signature Neutrophils % 67.8 % [facility] LABORATORY Neutr Abs (ANC) 6.58 (H) 1.70 - [facility] 6.10 [facility] x10(3)/[facility] LABORATORY Lymphocytes % 12.7 % [facility] LABORATORY Lymphocytes Abs 1.2 0.9 - 3.2 [facility] x10(3)/[facility] LABORATORY Monocytes % 9.2 % [facility] LABORATORY Monocyte Abs 0.9 0.3 - 0.9 [facility] x10(3)/[facility] LABORATORY Eosinophils % 3.0 % [facility] LABORATORY Eosinophils Abs 0.3 0.0 - 0.4 [facility] x10(3)/[facility] LABORATORY Basophils % 0.4 % [facility] LABORATORY Basophils Abs 0.0 0.0 - 0.1 [facility] x10(3)/[facility] LABORATORY Immature Gran % 6.90 % [facility] LABORATORY Comment: Immature granulocytes(IG's)percentage an d absolute count will include metamyelocytes, myelocytes, and promyelo cytes. Blood smears from CBCs yielding IG's will be scanned manually for concor dance. If this scan disagrees with the automated IG or if promyelocytes are not ed, a manual differential will be performed. Gemini Gran Abs 0.67 (H) 0.00 - 0.04 x10(3)/[facility] LABORATORY Specimen Anatomical Collection Method Collection Time Receive d Time (Source) Location / / Volume Laterality Blood 02/20/2022 4:45 AM 2 5:02 EDT AM EDT Resulting Agency Comment Spec In Lab Kaitlyn Rock MD HEMATOLOGY ORDERABLES Performing Organization Address City/State/[place] [address] (ABNORMAL) Hemogram (02/20/2022 4:45 AM EDT) Analysis Performed At Patho logist Time Signature WBC 9.7 (H) 4.0 - 9.5 [facility] x10(3)/[facility] LABORATORY RBC 2.48 (L) 4.58 - [facility] 5.54 [facility] x10(6)/[facility] LABORATORY Hemoglobin 7.2 (L) 13.7 - [facility] 16.5 g/dL [facility] LABORATORY Hematocrit 22.2 (L) 40.5 - [facility] 48.5 % [facility] LABORATORY MCV 89.5 82.9 - [facility] 93.1 [facility] LABORATORY MCH 29.0 27.5 - [facility] 32.1 pg [facility] LABORATORY MCHC 32.4 32.0 - [facility] 35.7 g/dL [facility] LABORATORY Platelets 312 145 - 357 [facility] x10(3)/[facility] LABORATORY RDWSD 49.6 (H) 36.0 - [facility] 45.0 [facility] LABORATORY RDWCV 15.4 (H) 11.4 - [facility] 13.8 % [facility] LABORATORY MPV 8.4 7.6 - 12.9 [facility] LABORATORY nRBC % Auto 0.0 % [facility] LABORATORY nRBC Abs Auto 0.000 0.000 - [facility] 0.000 [facility] x10(3)/[facility] LABORATORY Specimen Anatomical Collection Method Collection Time Receive d Time (Source) Location / / Volume Laterality Blood 02/20/2022 4:45 AM 5:02 EDT AM EDT Resulting Agency Comment Spec In Lab Kaitlyn Rock MD HEMATOLOGY ORDERABLES Performing Organization Address City/State/ZIP [place] [address] (ABNORMAL) Basic Metabolic Panel (non-fasting) (02/20/2022 4:45 AM EDT) athologist Signature Glucose Lvl 98 65 - 199 [facility] mg/dL [facility] LABORATORY Comment: Diabetes: >=200 mg/dL plus symp toms BUN 35 (H) 10 - 20 mg/dL [facility] LABORATORY Creatinine 3.27 (H) 0.80 - 1.50 mg/dL [facility] LABORATORY Comment: result rechecked-trb Sodium 136 135 - 145 mmol/L [facility] LABORATORY Potassium 4.7 3.5 - 5.0 mmol/L [facility] LABORATORY Comment: Please note: ??Patients with WBC >100,00 0 may have falsely elevated Potassium levels. ??For accurate Potassium quantif ication in these patients send serum separator tube (gold top) for subsequent determinations. ??Contact the Clinical Chemistry Laboratory if there are any qu estions. Chloride 99 98 - 107 mmol/L [facility]OR[facility]ORY CO2 27 22 - 31 mmol/L [facility] Anion Gap 10 5 - 15 mmol/L [facility] LABORATORY Calcium 7.8 (L) 8.5 - 10.5 mg/dL [facility] LABORATORY Estimated GFR 25 (L) >=60 mL/min/1.73 m?? [facility] Comment: This patient's estimated [...] Organization Address City/State/ZIP [place] [address] (ABNORMAL) Phosphorus (02/20/2022 4:45 AM EDT) P athologist Signature Phosphorus 4.6 (H) 2.5 - 4.5 [facility] mg/dL [facility] LABORATORY Specimen Anatomical Collection Method Collection Time Receive d Time (Source) Location / / Volume Laterality Blood 02/20/2022 4:45 AM 2 5:02 EDT AM EDT Resulting Agency Comment Spec In Lab Gela Novak MD CHEMISTRY ORDERABLES Performing Organization Address City/[facility]/ZIP Code Phon e Number [address] Magnesium (02/20/2022 4:45 AM EDT) athologist Signature Magnesium 0.83 0.69 - 1.07 [facility] mmol/L [facility] LABORATORY Specimen Anatomical Collection Method Collection Time Receive d Time (Source) Location / / Volume Laterality Blood 02/20/2022 4:45 AM 2 5:02 EDT AM EDT Resulting Agency Comment Spec In Lab Gela Novak MD CHEMISTRY ORDERABLES Performing Organization Address City/State/ZIP [place] [address] Duplex for DVT, Arm, Unilat (02/19/2022 3:45 PM EDT) Component Value Ref Test Analysis Performed At Patholo gist Range Method Time Signature VB Text Department: Vascular Surgery Lab VASCUBASE Report Patient: [id number] (ALIX HOLLAND) CPT: 35550 Referring Physician: GELA NOVAK ?? Phone: Indications: [...] VASCUBASE Anaerobic Culture (02/19/2022 9:45 AM EDT) [facility] [employer] Music Method Time Signature Anaerobic No anaerobic [facility] Culture organisms [facility] LABORATORY Specimen Anatomical Collection Method Collection Time Receive d Time (Source) Location / / Volume Laterality Deep Wound STRUCTURE OF LEFT 02/19/2022 9:45 AM 01/30 THIGH / Unknown EDT 10:24 AM EDT Comment: Left leg wound culture Resulting Agency Comment Spec In Lab Floridalma Sandoval MD MICROBIOLOGY - GENERAL ORDER JT Performing Organization Address City/[facility]/[place] [address] (ABNORMAL) Abscess/Wound Aspirate Culture (02/19/2022 9:45 AM EDT) Component Value Ref Test Analysis Performed At [facility] [employer] Range Method Time Signature Abscess/Wound Rare Serratia marcescens M JON Aspirate Rare Pseudomonas aeruginosa HI [facility] Culture (A) [facility] LABORATORY Gram Stain Moderate Neutrophils JOSH No microorganisms seen. [facility] OCK (A) [facility] LABORATORY Organism Serratia JOS[facility] marcescens (A) [facility] LABORATORY Organism Pseudomonas JOS[facility] aeruginosa (A) [facility] LABORATORY Specimen Anatomical Collection Method [...] Organization Address City/State/[place] [address] (ABNORMAL) Vitamin D, 25-Hydroxy (02/19/2022 12:27 AM EDT) [facility] Method Time Signature 25-OH Vit D 12 (L) 21 - 100 [facility] Total ng/mL [facility] LABORATORY 25-OH Vit D Deficient [facility] LABORATORY Specimen Anatomical Collection Method Collection Time Receive d Time (Source) Location / / Volume Laterality Blood Venous Draw / 02/19/2022 12:27 02/19/2022 Unknown AM EDT 12:44 AM EDT Resulting Agency Comment Spec In Lab Vidhya Peñaloza MD CHEMISTRY ORDERABLES Performing Organization Address City/[facility]/ZIP Code Phon e Number [place] [phone] [address] (ABNORMAL) Ferritin (02/19/2022 12:27 AM EDT) P athologist Signature Ferritin 855 (H) 30 - 400 [facility] ng/mL [facility] LABORATORY Comment: Pediatric reference ranges not verified at [facility], interpret with caution. Reference ranges for females greater trina n 50 years of age approach values for men, i.e., 30-400 ng/mL. Specimen Anatomical Collection Method Collection Time Receive d Time (Source) Location / / Volume Laterality Blood Venous Draw / 02/19/2022 12:27 02/19/2022 Unknown AM EDT 12:44 AM EDT Resulting Agency Comment Spec In Lab Bambi Pressley MD CHEMISTRY ORDERABLES Performing Organization Address City/[facility]/[place] [address] (ABNORMAL) Differential, Automated (02/19/2022 12:27 AM EDT) Patholo gist Method Time Signature Neutrophils % 66.5 % [facility] LABORATORY Neutr Abs (ANC) 8.58 (H) 1.70 - [facility] 6.10 [facility] x10(3)/[facility] L LABORATORY Lymphocytes % 11.4 % [facility] LABORATORY Lymphocytes Abs 1.5 0.9 - 3.2 [facility] x10(3)/[facility] LABORATORY Monocytes % 7.6 % [facility] LABORATORY Monocyte Abs 1.0 (H) 0.3 - 0.9 [facility] x10(3)/[facility] LABORATORY Eosinophils % 4.0 % [facility] LABORATORY Eosinophils Abs 0.5 (H) 0.0 - 0.4 [facility] x10(3)/[facility] LABORATORY Basophils % 0.5 % [facility] LABORATORY Basophils Abs 0.1 0.0 - 0.1 [facility] x10(3)/[facility] LABORATORY Immature Gran % 10.00 % [facility] LABORATORY Comment: Immature granulocytes(IG's)percentage an d absolute count will include metamyelocytes, myelocytes, and promyelo cytes. Blood smears from CBCs yielding IG's will be scanned manually for concor dance. If this scan disagrees with the automated IG or if promyelocytes are not ed, a manual differential will be performed. Gemini Gran Abs 1.29 (H) 0.00 - 0.04 x10(3)/[facility] LABORATORY Specimen Anatomical Collection Method Collection Time Receive d Time (Source) Location / / Volume Laterality Blood 02/19/2022 12:27 02/19/2022 AM EDT 12:33 AM EDT Resulting Agency Comment Spec In Lab Collette Dye MD HEMATOLOGY ORDERABLES Performing Organization Address City/State/[place] [address] (ABNORMAL) Hemogram (02/19/2022 12:27 AM EDT) Analysis Performed At Patho logist Time Signature WBC 12.9 (H) 4.0 - 9.5 [facility] x10(3)/[facility] LABORATORY RBC 2.44 (L) 4.58 - [facility] 5.54 [facility] x10(6)/[facility] LABORATORY Hemoglobin 7.1 (L) 13.7 - [facility] 16.5 g/dL [facility] LABORATORY Hematocrit 21.9 (L) 40.5 - [facility] 48.5 % [facility] LABORATORY MCV 89.8 82.9 - [facility] 93.1 fL [facility] LABORATORY MCH 29.1 27.5 - [facility] 32.1 pg [facility] LABORATORY MCHC 32.4 32.0 - [facility] 35.7 g/dL [facility] LABORATORY Platelets 320 145 - 357 [facility] x10(3)/[facility] LABORATORY RDWSD 51.8 (H) 36.0 - [facility] 45.0 [facility] LABORATORY RDWCV 15.7 (H) 11.4 - [facility] 13.8 % [facility] LABORATORY MPV 8.7 7.6 - 12.9 [facility] LABORATORY nRBC % Auto 0.0 % [facility] LABORATORY nRBC Abs Auto 0.000 0.000 - [facility] 0.000 [facility] x10(3)/[facility] LABORATORY Specimen Anatomical Collection Method Collection Time Receive d Time (Source) Location / / Volume Laterality Blood 02/19/2022 12:27 02/19/2022 AM EDT 12:33 AM EDT Resulting Agency Comment Spec In Lab Collette Dye MD HEMATOLOGY ORDERABLES Performing Organization Address City/State/[place] [address] (ABNORMAL) Basic Metabolic Panel (non-fasting) (02/19/2022 12:27 AM EDT) athologist Signature Glucose Lvl 100 65 - 199 [facility] mg/dL [facility] LABORATORY Comment: Diabetes: >=200 mg/dL plus symp toms BUN 49 (H) 10 - 20 mg/dL [facility] LABORATORY Creatinine 4.47 (H) 0.80 - 1.50 mg/dL [facility] LABORATORY Sodium 133 (L) 135 - 145 mmol/L [facility] LABORATORY Potassium 4.6 3.5 - 5.0 mmol/L [facility] LABORATORY Comment: Please note: ??Patients with WBC >100,00 0 may have falsely elevated Potassium levels. ??For accurate Potassium quantif ication in these patients send serum separator tube (gold top) for subsequent determinations. ??Contact the Clinical Chemistry Laboratory if there are any qu estions. Chloride 97 (L) 98 - 107 mmol/L [facility] LABORATORY CO2 24 22 - 31 mmol/L [facility] LABORATORY Anion Gap 12 5 - 15 mmol/L [facility] LABORATORY Calcium 7.8 (L) 8.5 - 10.5 mg/dL [facility] LABORATORY Estimated GFR 17 (L) >=60 mL/min/1.73 m?? [facility] LABORATORY Comment: This patient's estimated [...] Organization Address City/State/ZIP Code Phon e Number [address] (ABNORMAL) Phosphorus (02/19/2022 12:27 AM EDT) P athologist Signature Phosphorus 5.9 (H) 2.5 - 4.5 [facility] mg/dL [facility] LABORATORY Specimen Anatomical Collection Method Collection Time Receive d Time (Source) Location / / Volume Laterality Blood 02/19/2022 12:27 02/19/2022 AM EDT 12:33 AM EDT Resulting Agency Comment Spec In Lab Gela Novak MD CHEMISTRY ORDERABLES Performing Organization Address City/State/ZIP [place] [address] Magnesium (02/19/2022 12:27 AM EDT) P athologist Signature Magnesium 0.84 0.69 - 1.07 [facility] mmol/L [facility] LABORATORY Specimen Anatomical Collection Method Collection Time Receive d Time (Source) Location / / Volume Laterality Blood 02/19/2022 12:27 02/19/2022 AM EDT 12:33 AM EDT Resulting Agency Comment Spec In Lab Gela Novak MD CHEMISTRY ORDERABLES Performing Organization Address City/[facility]/ZIP Code [place] [address] Hepatitis B Surface Antigen (02/19/2022 12:27 AM EDT) Analysis Performed At [facility] logist Time Signature HepB Surface Negative Negative [facility] LABORATORY Specimen Anatomical Collection Method Collection Time Receive d Time (Source) Location / / Volume Laterality Blood 02/19/2022 12:27 02/19/2022 AM EDT 12:33 AM EDT Resulting Agency Comment Spec In Lab Gela Novak MD CHEMISTRY ORDERABLES Performing Organization Address City/[facility]/ZIP Code Phon e Number [address] Scan, Peripheral Blood (02/18/2022 4:01 AM EDT) [facility] [employer] Method Time Signature Plat Estimate Normal [facility] LABORATORY RBC Morphology Abnormal [facility] LABORATORY Ovalocytes 1-5 /HPF [facility] LABORATORY Stippled RBCs Present >1/HPF [facility] LABORATORY Specimen Anatomical Collection Method Collection Time Receive d Time (Source) Location / / Volume Laterality Blood 02/18/2022 4:01 AM 4:16 EDT AM EDT Resulting Agency Comment Spec In Lab Collette Dye MD HEMATOLOGY ORDERABLES Performing Organization Address City/[facility]/ZIP Code [place] [address] (ABNORMAL) Differential, Automated (02/18/2022 4:01 AM EDT) [facility] [employer] Method Time Signature Neutrophils % 70.4 % [facility] LABORATORY Neutr Abs (ANC) 10.70 (H) 1.70 - [facility] 6.10 [facility] [facility] x10(3)/[facility] LABORATORY Lymphocytes % 8.0 % [facility] LABORATORY Lymphocytes Abs 1.2 0.9 - 3.2 [facility] x10(3)/[facility] LABORATORY Monocytes % 7.7 % [facility] LABORATORY Monocyte Abs 1.2 (H) 0.3 - 0.9 [facility] x10(3)/[facility] LABORATORY Eosinophils % 3.2 % [facility] LABORATORY Eosinophils Abs 0.5 (H) 0.0 - 0.4 [facility] x10(3)/[facility] LABORATORY Basophils % 0.4 % [facility] LABORATORY Basophils Abs 0.1 0.0 - 0.1 [facility] x10(3)/[facility] LABORATORY Immature Gran % 10.30 % [facility] LABORATORY Comment: Immature granulocytes(IG's)percentage an d absolute count will include metamyelocytes, myelocytes, and promyelo cytes. Blood smears from CBCs yielding IG's will be scanned manually for concor dance. If this scan disagrees with the automated IG or if promyelocytes are not ed, a manual differential will be performed. Gemini Gran Abs 1.56 (H) 0.00 - 0.04 x10(3)/[facility] LABORATORY Specimen Anatomical Collection Method Collection Time Receive d Time (Source) Location / / Volume Laterality Blood 02/18/2022 4:01 AM 4:16 EDT AM EDT Resulting Agency Comment Spec In Lab Collette Dye MD HEMATOLOGY ORDERABLES Performing Organization Address City/State/ZIP Code Phon e Number [place] [id number] HOSPITAL LABORATORY Drive (ABNORMAL) Hemogram (02/18/2022 4:01 AM EDT) Analysis Performed At Patho logist Time Signature WBC 15.2 (H) 4.0 - 9.5 [facility] x10(3)/[facility] LABORATORY RBC 2.44 (L) 4.58 - [facility] 5.54 [facility] x10(6)/[facility] LABORATORY Hemoglobin 7.0 (L) 13.7 - [facility] 16.5 g/dL [facility] Hematocrit 22.0 (L) 40.5 - [facility] 48.5 % [facility] LABORATORY MCV 90.2 82.9 - [facility] 93.1 fL [facility] LABORATORY MCH 28.7 27.5 - [facility] 32.1 pg [facility] LABORATORY MCHC 31.8 (L) 32.0 - [facility] 35.7 g/dL [facility] LABORATORY Platelets 325 145 - 357 [facility] x10(3)/[facility] LABORATORY RDWSD 51.1 (H) 36.0 - [facility] 45.0 [facility] LABORATORY RDWCV 15.5 (H) 11.4 - [facility] 13.8 % [facility] LABORATORY MPV 8.8 7.6 - 12.9 [facility] LABORATORY nRBC % Auto 0.0 % [facility] LABORATORY nRBC Abs Auto 0.000 0.000 - [facility] 0.000 [facility] x10(3)/[facility] LABORATORY Specimen Anatomical Collection Method Collection Time Receive d Time (Source) Location / / Volume Laterality Blood 02/18/2022 4:01 AM 4:16 EDT AM EDT Resulting Agency Comment Spec In Lab Collette Dye MD HEMATOLOGY ORDERABLES Performing Organization Address City/State/[place] [address] (ABNORMAL) Basic Metabolic Panel (non-fasting) (02/18/2022 4:01 AM EDT) P athologist Signature Glucose Lvl 98 65 - 199 [facility] mg/dL [facility] LABORATORY Comment: Diabetes: >=200 mg/dL plus symp toms BUN 36 (H) 10 - 20 mg/dL [facility] LABORATORY Creatinine 3.80 (H) 0.80 - 1.50 mg/dL [facility] LABORATORY Comment: result rechecked-trb Sodium 132 (L) 135 - 145 mmol/L [facility] LABORATORY Potassium 4.3 3.5 - 5.0 mmol/L [facility] LABORATORY Comment: Please note: ??Patients with WBC >100,00 0 may have falsely elevated Potassium levels. ??For accurate Potassium quantif ication in these patients send serum separator tube (gold top) for subsequent determinations. ??Contact the Clinical Chemistry Laboratory if there are any qu estions. Chloride 97 (L) 98 - 107 mmol/L [facility] LABORATORY CO2 28 22 - 31 mmol/L [facility] LABORATORY Anion Gap 7 5 - 15 mmol/L [facility] LABORATORY Calcium 7.9 (L) 8.5 - 10.5 mg/dL [facility] LABORATORY Estimated GFR 21 (L) >=60 mL/min/1.73 m?? [facility] LABORATORY Comment: This patient's estimated [...] Organization Address City/State/ZIP [place] [address] (ABNORMAL) Phosphorus (02/18/2022 4:01 AM EDT) P athologist Signature Phosphorus 4.9 (H) 2.5 - 4.5 [facility] mg/dL [facility] LABORATORY Specimen Anatomical Collection Method Collection Time Receive d Time (Source) Location / / Volume Laterality Blood 02/18/2022 4:01 AM 2 4:17 EDT AM EDT Resulting Agency Comment Spec In Lab Gela Novak MD CHEMISTRY ORDERABLES Performing Organization Address City/State/ZIP Code Phon e Number [address] Magnesium (02/18/2022 4:01 AM EDT) P athologist Signature Magnesium 0.79 0.69 - 1.07 [facility] mmol/L [facility] LABORATORY Specimen Anatomical Collection Method Collection Time Receive d Time (Source) Location / / Volume Laterality Blood 02/18/2022 4:01 AM 4:17 EDT AM EDT Resulting Agency Comment Spec In Lab Gela Novak MD CHEMISTRY ORDERABLES Performing Organization Address City/[facility]/ZIP Code Phon e Number [address] Anaerobic Culture (02/17/2022 8:35 AM EDT) [facility] [employer] Method Time Signature Anaerobic No anaerobic [facility] Culture organisms [facility] LABORATORY Specimen Anatomical Collection Method Collection Time Receive d Time (Source) Location / / Volume Laterality Deep Wound STRUCTURE OF LEFT 02/17/2022 8:35 AM 01/30 THIGH / Unknown EDT 10:03 AM EDT Comment: Left lateral thigh wound Resulting Agency Comment Spec In Lab Jayme Armstrong MD MICROBIOLOGY - GENERAL ORDER JT Performing Organization Address City/[facility]/ZIP [place] [address] (ABNORMAL) Abscess/Wound Aspirate Culture (02/17/2022 8:35 AM EDT) Component Value Ref Test Analysis Performed At [facility] [employer] Range Method Time Signature Abscess/Woun One colony of JOS[facility] d Aspirate Serratia marcescens [facility] Culture : Susceptibilities [facility] (A) LABORATORY Gram Stain Moderate Neutrophils [facility] No microorganisms seen. [facility] OCK (A) [facility] LABORATORY Organism Serratia marcescens [facility] (A) [facility] LABORATORY Specimen Anatomical Collection Method Collection Time Receive d Time (Source) Location / / Volume Laterality Deep Wound STRUCTURE OF LEFT 02/17/2022 8:35 AM / THIGH / Unknown EDT 10:03 AM EDT Comment: Left lateral thigh wound Resulting Agency Comment Spec In Lab Jayme Armstrong MD MICROBIOLOGY - GENERAL ORDER JT Performing Organization Address City/[facility]/ZIP [place] [address] Anaerobic Culture (02/17/2022 8:35 AM EDT) [employer] Method Time Signature Anaerobic No anaerobic [facility] Culture organisms [facility] LABORATORY Specimen Anatomical Collection Method Collection Time Receive d Time (Source) Location / / Volume Laterality Deep Wound STRUCTURE OF LEFT 02/17/2022 8:35 AM 01/30 THIGH / Unknown EDT 10:02 AM EDT Comment: left superior thigh wound Resulting Agency Comment Spec In Lab Jayme Armstrong MD MICROBIOLOGY - GENERAL ORDER JT Performing Organization Address City/[facility]/ZIP [place] [address] (ABNORMAL) Abscess/Wound Aspirate Culture (02/17/2022 8:35 AM EDT) Component Value Ref Test Analysis Performed At [facility] Method Time Signature Abscess/Woun One colony of Serratia gabriele scens : Susceptibilities previously reported [place] Aspirate One colony of Pseudomonas ae ruginosa : Susceptibilities previously reported [facility] Culture (A) [facility] LABORATORY Gram Stain Moderate Neutrophils seen [facility] No microorganisms seen. [facility] OCK (A) [facility] LABORATORY Organism Serratia marcescens [facility] (A) [facility] LABORATORY Organism Pseudomonas [facility] aeruginosa (A) [facility] LABORATORY Specimen Anatomical Collection Method Collection Time Receive d Time (Source) Location / / Volume Laterality Deep Wound STRUCTURE OF LEFT 02/17/2022 8:35 AM 01/30 THIGH / Unknown EDT 10:02 AM EDT Comment: left superior thigh wound Resulting Agency Comment Spec In Lab Jayme Armstrong MD MICROBIOLOGY - GENERAL ORDER JT Performing Organization Address City/[facility]/[place] [address] (ABNORMAL) Differential, Automated (02/17/2022 3:40 AM EDT) [employer] Method Time Signature Neutrophils % 66.7 % [facility] LABORATORY Neutr Abs (ANC) 11.34 (H) 1.70 - [facility] 6.10 [facility] x10(3)/[facility] L LABORATORY Lymphocytes % 8.6 % [facility] LABORATORY Lymphocytes Abs 1.5 0.9 - 3.2 [facility] x10(3)/[facility] LABORATORY Monocytes % 6.6 % [facility] LABORATORY Monocyte Abs 1.1 (H) 0.3 - 0.9 [facility] x10(3)/[facility] LABORATORY Eosinophils % 3.9 % [facility] LABORATORY Eosinophils Abs 0.7 (H) 0.0 - 0.4 [facility] x10(3)/[facility] LABORATORY Basophils % 0.5 % [facility] LABORATORY Basophils Abs 0.1 0.0 - 0.1 [facility] x10(3)/[facility] LABORATORY Immature Gran % 13.70 % [facility] LABORATORY Comment: Immature granulocytes(IG's)percentage an d absolute count will include metamyelocytes, myelocytes, and promyelo cytes. Blood smears from CBCs yielding IG's will be scanned manually for concor dance. If this scan disagrees with the automated IG or if promyelocytes are not ed, a manual differential will be performed. Gemini Gran Abs 2.33 (H) 0.00 - 0.04 x10(3)/[facility] LABORATORY Specimen Anatomical Collection Method Collection Time Receive d Time (Source) Location / / Volume Laterality Blood 02/17/2022 3:40 AM 3:59 EDT AM EDT Resulting Agency Comment Spec In Lab Collette Dye MD HEMATOLOGY ORDERABLES Performing Organization Address City/State/[place] [address] (ABNORMAL) Hemogram (02/17/2022 3:40 AM EDT) Analysis Performed At Patho logist Time Signature WBC 17.0 (H) 4.0 - 9.5 [facility] x10(3)/[facility] LABORATORY RBC 2.46 (L) 4.58 - [facility] 5.54 [facility] x10(6)/[facility] LABORATORY Hemoglobin 7.1 (L) 13.7 - [facility] 16.5 g/dL [facility] LABORATORY Hematocrit 22.2 (L) 40.5 - [facility] 48.5 % [facility] LABORATORY MCV 90.2 82.9 - [facility] 93.1 [facility] LABORATORY MCH 28.9 27.5 - [facility] [place] 32.1 pg [facility] LABORATORY MCHC 32.0 32.0 - [facility] [place] 35.7 g/dL [facility] LABORATORY Platelets 316 145 - 357 [facility] x10(3)/[facility] LABORATORY RDWSD 51.5 (H) 36.0 - [facility] [place] 45.0 [facility] LABORATORY RDWCV 15.7 (H) 11.4 - [facility] [place] 13.8 % [facility] LABORATORY MPV 9.0 7.6 - 12.9 [facility] [place] [facility] LABORATORY nRBC % Auto 0.0 % [facility] LABORATORY nRBC Abs Auto 0.000 0.000 - [facility] [place] 0.000 [facility] x10(3)/[facility] LABORATORY Specimen Anatomical Collection Method Collection Time Receive d Time (Source) Location / / Volume Laterality Blood 02/17/2022 3:40 AM 2 3:59 EDT AM EDT Resulting Agency Comment Spec In Lab Collette Dye MD HEMATOLOGY ORDERABLES Performing Organization Address City/State/[place] [address] (ABNORMAL) Basic Metabolic Panel (non-fasting) (02/17/2022 3:40 AM EDT) P athologist Signature Glucose Lvl 101 65 - 199 [facility] mg/dL [facility] LABORATORY Comment: Diabetes: >=200 mg/dL plus symp toms BUN 51 (H) 10 - 20 mg/dL [facility] LABORATORY Creatinine 5.07 (H) 0.80 - 1.50 mg/dL [facility] LABORATORY Comment: result rechecked- Sodium 130 (L) 135 - 145 mmol/L [facility] LABORATORY Potassium 4.5 3.5 - 5.0 mmol/L [facility] LABORATORY Comment: Please note: ??Patients with WBC >100,00 0 may have falsely elevated Potassium levels. ??For accurate Potassium quantif ication in these patients send serum separator tube (gold top) for subsequent determinations. ??Contact the Clinical Chemistry Laboratory if there are any qu estions. Chloride 96 (L) 98 - 107 mmol/L [facility] LABORATORY CO2 24 22 - 31 mmol/L [facility] LABORATORY Anion Gap 10 5 - 15 mmol/L [facility] LABORATORY Calcium 7.8 (L) 8.5 - 10.5 mg/dL [facility] LABORATORY Estimated GFR 15 (L) >=60 mL/min/1.73 m?? [facility] LABORATORY Comment: This patient's estimated [...] Novak MD CHEMISTRY ORDERABLES Performing Organization Address City/[facility]/[place] [address] (ABNORMAL) Phosphorus (02/17/2022 3:40 AM EDT) P athologist Signature Phosphorus 5.7 (H) 2.5 - 4.5 [facility] mg/dL [facility] LABORATORY Specimen Anatomical Collection Method Collection Time Receive d Time (Source) Location / / Volume Laterality Blood 02/17/2022 3:40 AM 2 3:59 EDT AM EDT Resulting Agency Comment Spec In Lab Gela Novak MD CHEMISTRY ORDERABLES Performing Organization Address City/State/[place] [address] [facility] LAB[address] Magnesium (02/17/2022 3:40 AM EDT) P athologist Signature Magnesium 0.86 0.69 - 1.07 [facility] mmol/L [facility] LABORATORY Specimen Anatomical Collection Method Collection Time Receive d Time (Source) Location / / Volume Laterality Blood 02/17/2022 3:40 AM 3:59 EDT AM EDT Resulting Agency Comment Spec In Lab Gela Novak MD CHEMISTRY ORDERABLES Performing Organization Address City/State/ZIP Code Phon e Number [place] [phone] [facility] LABORATORY Drive (ABNORMAL) Differential, Automated (02/16/2022 4:05 AM EDT) Patholo gist Method Time Signature Neutrophils % 66.8 % [facility] LABORATORY Neutr Abs (ANC) 12.70 (H) 1.70 - [facility] 6.10 [facility] x10(3)/[facility] LABORATORY Lymphocytes % 6.8 % [facility] LABORATORY Lymphocytes Abs 1.3 0.9 - 3.2 [facility] x10(3)/[facility] LABORATORY Monocytes % 5.9 % [facility] LABORATORY Monocyte Abs 1.1 (H) 0.3 - 0.9 [facility] x10(3)/[facility] LABORATORY Eosinophils % 3.2 % [facility] LABORATORY Eosinophils Abs 0.6 (H) 0.0 - 0.4 [facility] x10(3)/[facility] LABORATORY Basophils % 0.6 % [facility] LABORATORY Basophils Abs 0.1 0.0 - 0.1 [facility] x10(3)/[facility] LABORATORY Immature Gran % 16.70 % [facility] LABORATORY Comment: Immature granulocytes(IG's)percentage an d absolute count will include metamyelocytes, myelocytes, and promyelo cytes. Blood smears from CBCs yielding IG's will be scanned manually for concor dannoe. If this scan disagrees with the automated IG or if promyelocytes are not ed, a manual differential will be performed. Gemini Gran Abs 3.17 (H) 0.00 - 0.04 x10(3)/[facility] LABORATORY Specimen Anatomical Collection Method Collection Time Receive d Time (Source) Location / / Volume Laterality Blood 02/16/2022 4:05 AM 4:20 EDT AM EDT Resulting Agency Comment Spec In Lab Veto Hidalgo MD HEMATOLOGY ORDERABLES Performing Organization Address City/State/[place] [address] (ABNORMAL) Hemogram (02/16/2022 4:05 AM EDT) Analysis Performed At Patho logist Time Signature WBC 19.0 (H) 4.0 - 9.5 [facility] x10(3)/[facility] LABORATORY RBC 2.50 (L) 4.58 - [facility] 5.54 [facility] x10(6)/[facility] LABORATORY Hemoglobin 7.3 (L) 13.7 - [facility] 16.5 g/dL [facility] LABORATORY Hematocrit 22.3 (L) 40.5 - [facility] 48.5 % [facility] LABORATORY MCV 89.2 82.9 - [facility] 93.1 [facility] LABORATORY MCH 29.2 27.5 - [facility] 32.1 pg [facility] LABORATORY MCHC 32.7 32.0 - [facility] 35.7 g/dL [facility] LABORATORY Platelets 296 145 - 357 [facility] x10(3)/[facility] LABORATORY RDWSD 51.5 (H) 36.0 - [facility] 45.0 [facility] LABORATORY RDWCV 15.7 (H) 11.4 - [facility] 13.8 % [facility] LABORATORY MPV 9.2 7.6 - 12.9 [facility] LABORATORY nRBC % Auto 0.0 % [facility] LABORATORY nRBC Abs Auto 0.000 0.000 - [facility] [employer] 0.000 [facility] x10(3)/[facility] LABORATORY Specimen Anatomical Collection Method Collection Time Receive d Time (Source) Location / / Volume Laterality Blood 02/16/2022 4:05 AM 2 4:20 EDT AM EDT Resulting Agency Comment Spec In Lab Veto Hidalgo MD HEMATOLOGY ORDERABLES Performing Organization Address City/State/[place] [address] (ABNORMAL) Basic Metabolic Panel (non-fasting) (02/16/2022 4:05 AM EDT) P athologist Signature Glucose Lvl 94 65 - 199 [facility] mg/dL [facility] LABORATORY Comment: Diabetes: >=200 mg/dL plus symp toms BUN 35 (H) 10 - 20 mg/dL [facility] LABORATORY Creatinine 3.65 (H) 0.80 - 1.50 mg/dL [facility] LABORATORY Comment: result rechecked-bm Sodium 128 (L) 135 - 145 mmol/L [facility] LABORATORY Potassium 4.4 3.5 - 5.0 mmol/L [facility] LABORATORY Comment: Please note: ??Patients with WBC >100,00 0 may have falsely elevated Potassium levels. ??For accurate Potassium quantif ication in these patients send serum separator tube (gold top) for subsequent determinations. ??Contact the Clinical Chemistry Laboratory if there are any qu estions. Chloride 95 (L) 98 - 107 mmol/L [facility] LABORATORY CO2 26 22 - 31 mmol/L [facility] LABORATORY Anion Gap 7 5 - 15 mmol/L [facility] LABORATORY Calcium 7.7 (L) 8.5 - 10.5 mg/dL [facility] LABORATORY Estimated GFR 22 (L) >=60 mL/min/1.73 m?? [facility] LABORATORY Comment: This patient's estimated [...] Novak MD CHEMISTRY ORDERABLES Performing Organization Address City/[facility]/ZIP Code Phon e Number [address] Phosphorus (02/16/2022 4:05 AM EDT) athologist Signature Phosphorus 4.5 2.5 - 4.5 [facility] mg/dL [facility] Specimen Anatomical Collection Method Collection Time Receive d Time (Source) Location / / Volume Laterality Blood 02/16/2022 4:05 AM 2 4:20 EDT AM EDT Resulting Agency Comment Spec In Lab Gela Novak MD CHEMISTRY ORDERABLES Performing Organization Address City/[facility]/ZIP Code [place] [address] Magnesium (02/16/2022 4:05 AM EDT) athologist Signature Magnesium 0.83 0.69 - 1.07 [facility] mmol/L [facility] LABORATORY Specimen Anatomical Collection Method Collection Time Receive d Time (Source) Location / / Volume Laterality Blood 02/16/2022 4:05 AM 2 4:20 EDT AM EDT Resulting Agency Comment Spec In Lab Gela Novak MD CHEMISTRY ORDERABLES Performing Organization Address City/[facility]/ZIP [place] [address] Anaerobic Culture (02/15/2022 9:06 AM EDT) Patholo gist Method Time Signature Anaerobic No anaerobic [facility] Culture organisms [facility] LABORATORY Specimen Anatomical Collection Method Collection Time Receive d Time (Source) Location / / Volume Laterality Deep Wound STRUCTURE OF LEFT 02/15/2022 9:06 AM 01/29 THIGH / Unknown EDT 10:49 AM EDT Comment: Left thigh wound culture Resulting Agency Comment Spec In Lab Jayme Armstrong MD MICROBIOLOGY - GENERAL ORDER JT Performing Organization Address City/State/[place] [address] (ABNORMAL) Abscess/Wound Aspirate Culture (02/15/2022 9:06 AM EDT) [facility] Method Time Signature Abscess/Wound Few Serratia marcescens MA RY Aspirate Rare Pseudomonas aeruginosa [place] [facility] Culture Rare mixed bacterial morphotypes suggestive of normal cutaneous yessy [facility] LABORATORY Gram Stain Moderate Gram Positive Cocci [facility] Rare Gram Negative Rods [facility] OCK ([facility] LABORATORY Organism Serratia [facility] marcescens (A) [facility] LABORATORY Organism Pseudomonas [facility] aeruginosa (A) [facility] LABORATORY Specimen Anatomical Collection Method [...] Organization Address City/State/ZIP [place] [address] (ABNORMAL) Differential, Automated (02/15/2022 3:50 AM EDT) [facility] gist Method Time Signature Neutrophils % 61.8 % [facility] LABORATORY Neutr Abs (ANC) 13.66 (H) 1.70 - [facility] 6.10 [facility] x10(3)/[facility] LABORATORY Lymphocytes % 7.3 % [facility] LABORATORY Lymphocytes Abs 1.6 0.9 - 3.2 [facility] x10(3)/[facility] LABORATORY Monocytes % 5.4 % [facility] LABORATORY Monocyte Abs 1.2 (H) 0.3 - 0.9 [facility] x10(3)/[facility] LABORATORY Eosinophils % 3.1 % [facility] LABORATORY Eosinophils Abs 0.7 (H) 0.0 - 0.4 [facility] x10(3)[facility] LABORATORY Basophils % 0.5 % [facility] LABORATORY Basophils Abs 0.1 0.0 - 0.1 [facility] x10(3)/[facility] LABORATORY Immature Gran % 21.90 % [facility] LABORATORY Comment: Immature granulocytes(IG's)percentage an d absolute count will include metamyelocytes, myelocytes, and promyelo cytes. Blood smears from CBCs yielding IG's will be scanned manually for [place]. If this scan disagrees with the automated IG or if promyelocytes are not ed, a manual differential will be performed. Gemini Gran Abs 4.85 (H) 0.00 - 0.04 x10(3)/[facility] LABORATORY Specimen Anatomical Collection Method Collection Time Receive d Time (Source) Location / / Volume Laterality Blood 02/15/2022 3:50 AM 4:05 EDT AM EDT Resulting Agency Comment Spec In Lab Veto Hidalgo MD HEMATOLOGY ORDERABLES Performing Organization Address City/State/[place] [address] (ABNORMAL) Hemogram (02/15/2022 3:50 AM EDT) Analysis Performed At Patho logist Time Signature WBC 22.1 (H) 4.0 - 9.5 [facility] x10(3)/[facility] LABORATORY RBC 2.43 (L) 4.58 - [facility] 5.54 [facility] x10(6)/[facility] LABORATORY Hemoglobin 7.2 (L) 13.7 - [facility] 16.5 g/dL [facility] LABORATORY Hematocrit 21.3 (L) 40.5 - [facility] 48.5 % [facility] LABORATORY MCV 87.7 82.9 - [facility] 93.1 [facility] LABORATORY MCH 29.6 27.5 - [facility] 32.1 pg [facility] LABORATORY MCHC 33.8 32.0 - [facility] 35.7 g/dL [facility] LABORATORY Platelets 254 145 - 357 [facility] x10(3)/[facility] LABORATORY RDWSD 49.2 (H) 36.0 - [facility] 45.0 [facility] LABORATORY RDWCV 15.3 (H) 11.4 - [facility] 13.8 % [facility] LABORATORY MPV 9.3 7.6 - 12.9 [facility] LABORATORY nRBC % Auto 0.0 % [facility] LABORATORY nRBC Abs Auto 0.000 0.000 - [facility] 0.000 [facility] x10(3)/[facility] LABORATORY Specimen Anatomical Collection Method Collection Time Receive d Time (Source) Location / / Volume Laterality Blood 02/15/2022 3:50 AM 2 4:05 EDT AM EDT Resulting Agency Comment Spec In Lab Veto Hidalgo MD HEMATOLOGY ORDERABLES Performing Organization Address City/State/[place] [address] (ABNORMAL) Basic Metabolic Panel (non-fasting) (02/15/2022 3:50 AM EDT) athologist Signature Glucose Lvl 91 65 - 199 [facility] mg/dL [facility] LABORATORY Comment: Diabetes: >=200 mg/dL plus symp toms BUN 62 (H) 10 - 20 mg/dL [facility] LABORATORY Creatinine 5.16 (H) 0.80 - 1.50 mg/dL [facility] LABORATORY Comment: result rechecked- Sodium 126 (L) 135 - 145 mmol/L [facility] LABORATORY Potassium 4.8 3.5 - 5.0 mmol/L [facility] LABORATORY Comment: Please note: ??Patients with WBC >100,00 0 may have falsely elevated Potassium levels. ??For accurate Potassium quantif ication in these patients send serum separator tube (gold top) for subsequent determinations. ??Contact the Clinical Chemistry Laboratory if there are any qu estions. Chloride 92 (L) 98 - 107 mmol/L [facility] LABORATORY CO2 23 22 - 31 mmol/L [facility] LABORATORY Anion Gap 11 5 - 15 mmol/L [facility] LABORATORY Calcium 7.5 (L) 8.5 - 10.5 mg/dL [facility] LABORATORY Estimated GFR 14 (L) >=60 mL/min/1.73 m?? [facility] LABORATORY Comment: This patient's estimated [...] Novak MD CHEMISTRY ORDERABLES Performing Organization Address City/[facility]/ZIP Code Phon e Number [address] (ABNORMAL) Phosphorus (02/15/2022 3:50 AM EDT) P athologist Signature Phosphorus 5.7 (H) 2.5 - 4.5 [facility] mg/dL [facility] LABORATORY Specimen Anatomical Collection Method Collection Time Receive d Time (Source) Location / / Volume Laterality Blood 02/15/2022 3:50 AM 2 4:05 EDT AM EDT Resulting Agency Comment Spec In Lab Gela Novak MD CHEMISTRY ORDERABLES Performing Organization Address City/[facility]/ZIP Code [place] [address] Magnesium (02/15/2022 3:50 AM EDT) P athologist Signature Magnesium 0.82 0.69 - 1.07 [facility] mmol/L [facility] LABORATORY Specimen Anatomical Collection Method Collection Time Receive d Time (Source) Location / / Volume Laterality Blood 02/15/2022 3:50 AM 2 4:05 EDT AM EDT Resulting Agency Comment Spec In Lab Gela Novak MD CHEMISTRY ORDERABLES Performing Organization Address City/State/ZIP [place] [address] Scan, Peripheral Blood (02/14/2022 5:26 AM EDT) Patholo gist Method Time Signature Plat Estimate Normal [facility] LABORATORY RBC Morphology Abnormal [facility] LABORATORY Hypochromia Slight [facility] LABORATORY Specimen Anatomical Collection Method Collection Time Receive d Time (Source) Location / / Volume Laterality Blood 02/14/2022 5:26 AM 5:45 EDT AM EDT Resulting Agency Comment Spec In Lab Veto Hidalgo MD HEMATOLOGY ORDERABLES Performing Organization Address City/State/[place] [address] (ABNORMAL) Differential, Automated (02/14/2022 5:26 AM EDT) [facility] Method Time Signature Neutrophils % 52.2 % [facility] LABORATORY Neutr Abs (ANC) 12.07 (H) 1.70 - [facility] 6.10 [facility] x10(3)/[facility] LABORATORY Lymphocytes % 7.7 % [facility] LABORATORY Lymphocytes Abs 1.8 0.9 - 3.2 [facility] x10(3)/[facility] LABORATORY Monocytes % 6.7 % [facility] LABORATORY Monocyte Abs 1.5 (H) 0.3 - 0.9 [facility] x10(3)/[facility] LABORATORY Eosinophils % 3.1 % [facility] LABORATORY Eosinophils Abs 0.7 (H) 0.0 - 0.4 [facility] x10(3)/[facility] LABORATORY Basophils % 0.3 % [facility] LABORATORY Basophils Abs 0.1 0.0 - 0.1 [facility] x10(3)/[facility] LABORATORY Immature Gran % 30.00 % [facility] LABORATORY Comment: Immature granulocytes(IG's)percentage an d absolute count will include metamyelocytes, myelocytes, and promyelo cytes. Blood smears from CBCs yielding IG's will be scanned manually for concor dance. If this scan disagrees with the automated IG or if promyelocytes are not ed, a manual differential will be performed. Gemini Gran Abs 6.92 (H) 0.00 - 0.04 x10(3)/[facility] LABORATORY Specimen Anatomical Collection Method Collection Time Receive d Time (Source) Location / / Volume Laterality Blood 02/14/2022 5:26 AM 2 5:45 EDT AM EDT Resulting Agency Comment Spec In Lab Veto Hidalgo MD HEMATOLOGY ORDERABLES Performing Organization Address City/State/[place] [address] (ABNORMAL) Hemogram (02/14/2022 5:26 AM EDT) Analysis Performed At Patho logist Time Signature WBC 23.1 (H) 4.0 - 9.5 [facility] x10(3)/[facility] LABORATORY RBC 2.62 (L) 4.58 - [facility] 5.54 [facility] x10(6)/[facility] LABORATORY Hemoglobin 8.0 (L) 13.7 - [facility] 16.5 g/dL [facility] LABORATORY Hematocrit 23.0 (L) 40.5 - [facility] 48.5 % [facility] LABORATORY MCV 87.8 82.9 - [facility] 93.1 [facility] LABORATORY MCH 30.5 27.5 - [facility] 32.1 pg [facility] LABORATORY MCHC 34.8 32.0 - [facility] 35.7 g/dL [facility] LABORATORY Platelets 240 145 - 357 [facility] x10(3)/[facility] LABORATORY RDWSD 49.2 (H) 36.0 - [facility] 45.0 [facility] LABORATORY RDWCV 15.5 (H) 11.4 - [facility] 13.8 % [facility] LABORATORY MPV 9.4 7.6 - 12.9 [facility] LABORATORY nRBC % Auto 0.0 % [facility] LABORATORY nRBC Abs Auto 0.000 0.000 - [facility] 0.000 [facility] x10(3)/[facility] LABORATORY Specimen Anatomical Collection Method Collection Time Receive d Time (Source) Location / / Volume Laterality Blood 02/14/2022 5:26 AM 2 5:45 EDT AM EDT Resulting Agency Comment Spec In Lab Veto Hidalgo MD HEMATOLOGY ORDERABLES Performing Organization Address City/State/[place] [address] (ABNORMAL) Basic Metabolic Panel (non-fasting) (02/14/2022 5:26 AM EDT) P athologist Signature Glucose Lvl 92 65 - 199 [facility] mg/dL [facility] LABORATORY Comment: Diabetes: >=200 mg/dL plus symp toms BUN 47 (H) 10 - 20 mg/dL [facility] LABORATORY Creatinine 4.06 (H) 0.80 - 1.50 mg/dL [facility] LABORATORY Comment: result rechecked-KS Sodium 127 (L) 135 - 145 mmol/L [facility] LABORATORY Potassium 4.4 3.5 - 5.0 mmol/L [facility] LABORATORY Comment: Please note: ??Patients with WBC >100,00 0 may have falsely elevated Potassium levels. ??For accurate Potassium quantif ication in these patients send serum separator tube ([facility] top) for subsequent determinations. ??Contact the Clinical Chemistry Laboratory if there are any qu estions. Chloride 91 (L) 98 - 107 mmol/L [facility] LABORATORY CO2 23 22 - 31 mmol/L [facility] LABORATORY Anion Gap 13 5 - 15 mmol/L [facility] LABORATORY Calcium 7.1 (L) 8.5 - 10.5 mg/dL [facility] LABORATORY Estimated GFR 19 (L) >=60 mL/min/1.73 m?? [facility] LABORATORY Comment: This patient's estimated [...] Novak MD CHEMISTRY ORDERABLES Performing Organization Address City/[facility]/ZIP Code Phon e Number [address] (ABNORMAL) Phosphorus (02/14/2022 5:26 AM EDT) P athologist Signature Phosphorus 4.7 (H) 2.5 - 4.5 [facility] mg/dL [facility] LABORATORY Specimen Anatomical Collection Method Collection Time Receive d Time (Source) Location / / Volume Laterality Blood 02/14/2022 5:26 AM 2 5:45 EDT AM EDT Resulting Agency Comment Spec In Lab Gela Novak MD CHEMISTRY ORDERABLES Performing Organization Address City/[facility]/ZIP Code [place] [address] Magnesium (02/14/2022 5:26 AM EDT) P athologist Signature Magnesium 0.80 0.69 - 1.07 [facility] mmol/L [facility] LABORATORY Specimen Anatomical Collection Method Collection Time Receive d Time (Source) Location / / Volume Laterality Blood 02/14/2022 5:26 AM 2 5:45 EDT AM EDT Resulting Agency Comment Spec In Lab Gela Novak MD CHEMISTRY ORDERABLES Performing Organization Address City/[facility]/ZIP [facility] [place] [address] Femur w Contrast [...] who have questions please contact the health wound care center consultant that requested your imaging first. ? Narrative [...] ho have questions please contact the health wound care center consultant that requested your imaging first. Parrish Betancourt [...] who have questions please contact the health wound care center consultant that requested your imaging first. ? Narrative [...] ho have questions please contact the health wound care center consultant that requested your imaging first. Parrish Betancourt [...] who have questions please contact the health wound care center consultant that requested your imaging first. ? Narrative [...] ho have questions please contact the health wound care center consultant that requested your imaging first. Parrish Betancourt MD IMG DX ORDERABLES Scan, Peripheral Blood (02/13/2022 12:20 AM EDT) [facility] gist Method Time Signature Plat Estimate Normal [facility] LABORATORY RBC Morphology Abnormal [facility] LABORATORY Hypochromia Slight [facility] LABORATORY Martin Cells 1-5 /HPF [facility] LABORATORY Stippled RBCs Present >1/HPF [facility] LABORATORY Toxic Present [facility] LABORATORY Specimen Anatomical Collection Method Collection Time Receive d Time (Source) Location / / Volume Laterality Blood 02/13/2022 12:20 02/13/2022 AM EDT 12:37 AM EDT Resulting Agency Comment Spec In Lab Kaitlyn Rock MD HEMATOLOGY ORDERABLES Performing Organization Address City/State/[place] [address] (ABNORMAL) Differential, Automated (02/13/2022 12:20 AM EDT) [employer] Method Time Signature Neutrophils % 44.9 % [facility] LABORATORY Neutr Abs (ANC) 11.00 (H) 1.70 - [facility] 6.10 [facility] x10(3)/[facility] LABORATORY Lymphocytes % 8.8 % [facility] LABORATORY Lymphocytes Abs 2.2 0.9 - 3.2 [facility] x10(3)/[facility] LABORATORY Monocytes % 9.3 % [facility] LABORATORY Monocyte Abs 2.3 (H) 0.3 - 0.9 [facility] x10(3)/[facility] LABORATORY Eosinophils % 2.6 % [facility] LABORATORY Eosinophils Abs 0.6 (H) 0.0 - 0.4 [facility] x10(3)/[facility] LABORATORY Basophils % 0.3 % [facility] LABORATORY Basophils Abs 0.1 0.0 - 0.1 [facility] x10(3)/[facility] LABORATORY Immature Gran % 34.10 % [facility] LABORATORY Comment: Immature granulocytes(IG's)percentage an d absolute count will include metamyelocytes, myelocytes, and promyelo cytes. Blood smears from CBCs yielding IG's will be scanned manually for concor dance. If this scan disagrees with the automated IG or if promyelocytes are not ed, a manual differential will be performed. Gemini Gran Abs 8.35 (H) 0.00 - 0.04 x10(3)/[facility] LABORATORY Specimen Anatomical Collection Method Collection Time Receive d Time (Source) Location / / Volume Laterality Blood 02/13/2022 12:20 02/13/2022 AM EDT 12:37 AM EDT Resulting Agency Comment Spec In Lab Kaitlyn Rock MD HEMATOLOGY ORDERABLES Performing Organization Address City/State/[place] [address] (ABNORMAL) Hemogram (02/13/2022 12:20 AM EDT) Analysis Performed At Patho logist Time Signature WBC 24.5 (H) 4.0 - 9.5 [facility] x10(3)/[facility] LABORATORY RBC 2.72 (L) 4.58 - [facility] 5.54 [facility] x10(6)/[facility] LABORATORY Hemoglobin 8.0 (L) 13.7 - [facility] 16.5 g/dL [facility] LABORATORY Hematocrit 23.6 (L) 40.5 - [facility] 48.5 % [facility] LABORATORY MCV 86.8 82.9 - [facility] 93.1 [facility] LABORATORY MCH 29.4 27.5 - [facility] 32.1 pg [facility] LABORATORY MCHC 33.9 32.0 - [facility] 35.7 g/dL [facility] LABORATORY Platelets 201 145 - 357 [facility] x10(3)/[facility] LABORATORY RDWSD 48.3 (H) 36.0 - [facility] 45.0 [facility] LABORATORY RDWCV 15.4 (H) 11.4 - [facility] 13.8 % [facility] LABORATORY MPV 9.7 7.6 - 12.9 [facility] LABORATORY nRBC % Auto 0.0 % [facility] LABORATORY nRBC Abs Auto 0.000 0.000 - [facility] 0.000 [facility] x10(3)/[facility] LABORATORY Specimen Anatomical Collection Method Collection Time Receive d Time (Source) Location / / Volume Laterality Blood 02/13/2022 12:20 02/13/2022 AM EDT 12:37 AM EDT Resulting Agency Comment Spec In Lab Kaitlyn Rock MD HEMATOLOGY ORDERABLES Performing Organization Address City/[facility]/ZIP Code Phon e Number [place] [id number] HOSPITAL LABORATORY Drive (ABNORMAL) Basic Metabolic Panel (non-fasting) (02/13/2022 12:20 AM EDT) P athologist Signature Glucose Lvl 120 65 - 199 [facility] mg/dL [facility] LABORATORY Comment: Diabetes: >=200 mg/dL plus symp toms BUN 30 (H) 10 - 20 mg/dL [facility] LABORATORY Creatinine 2.85 (H) 0.80 - 1.50 mg/dL [facility] LABORATORY Comment: result rechecked-bm Sodium 127 (L) 135 - 145 mmol/L [facility] LABORATORY Potassium 3.8 3.5 - 5.0 mmol/L [facility] LABORATORY Comment: Please note: ??Patients with WBC >100,00 0 may have falsely elevated Potassium levels. ??For accurate Potassium quantif ication in these patients send serum separator tube (gold top) for subsequent determinations. ??Contact the Clinical Chemistry Laboratory if there are any qu estions. Chloride 94 (L) 98 - 107 mmol/L [facility] LABORATORY CO2 27 22 - 31 mmol/L [facility] LABORATORY Anion Gap 6 5 - 15 mmol/L [facility] LABORATORY Calcium 7.0 (L) 8.5 - 10.5 mg/dL [facility] LABORATORY Comment: result rechecked-bm Estimated GFR 30 (L) >=60 mL/min/1.73 m?? [facility] LABORATORY Comment: This patient's estimated [...] Organization Address City/State/ZIP [place] [address] Phosphorus (02/13/2022 12:20 AM EDT) P athologist Signature Phosphorus 2.8 2.5 - 4.5 [facility] mg/dL [facility] LABORATORY Specimen Anatomical Collection Method Collection Time Receive d Time (Source) Location / / Volume Laterality Blood 02/13/2022 12:20 02/13/2022 AM EDT 12:37 AM EDT Resulting Agency Comment Spec In Lab Gela Novak MD CHEMISTRY ORDERABLES Performing Organization Address City/State/ZIP [place] [address] Magnesium (02/13/2022 12:20 AM EDT) P athologist Signature Magnesium 0.79 0.69 - 1.07 [facility] mmol/L [facility] LABORATORY Specimen Anatomical Collection Method Collection Time Receive d Time (Source) Location / / Volume Laterality Blood 02/13/2022 12:20 02/13/2022 AM EDT 12:37 AM EDT Resulting Agency Comment Spec In Lab Gela Novak MD CHEMISTRY ORDERABLES Performing Organization Address City/State/ZIP Code [place] [address] (ABNORMAL) Sodium (02/12/2022 4:45 PM EDT) P athologist Signature Sodium 128 (L) 135 - 145 [facility] mmol/L [facility] LABORATORY Specimen Anatomical Collection Method Collection Time Receive d Time (Source) Location / / Volume Laterality Blood 02/12/2022 4:45 PM 5:17 EDT PM EDT Resulting Agency Comment Spec In Lab Parrish Betancourt MD CHEMISTRY ORDERABLES Performing Organization Address City/State/ZIP Code Phon e Number [address] Prepare RBC (02/12/2022 9:55 AM EDT) athologist Signature Dispensed? Yes [facility] LABORATORY Specimen Anatomical Collection Method Collection Time Receive d Time (Source) Location / / Volume Laterality Blood 02/12/2022 9:55 AM 2 9:53 EDT AM EDT Parrish Betancourt MD BLOOD BANK ORDERABLES Performing Organization Address City/State/ZIP [place] [address] (ABNORMAL) Sodium (02/12/2022 9:16 AM EDT) P athologist Signature Sodium 125 (L) 135 - 145 [facility] mmol/L [facility] LABORATORY Specimen Anatomical Collection Method Collection Time Receive d Time (Source) Location / / Volume Laterality Blood 02/12/2022 9:16 AM 2 9:18 EDT AM EDT Resulting Agency Comment Spec In Lab Parrish Betancourt MD CHEMISTRY ORDERABLES Performing Organization Address City/[facility]/ZIP Code [place] [address] (ABNORMAL) Differential, Automated (02/12/2022 12:30 AM EDT) Patholo gist Method Time Signature Neutrophils % 49.1 % [facility] LABORATORY Neutr Abs (ANC) 11.38 (H) 1.70 - [facility] 6.10 [facility] x10(3)/[facility] LABORATORY Lymphocytes % 8.6 % [facility] LABORATORY Lymphocytes Abs 2.0 0.9 - 3.2 [facility] x10(3)/[facility] LABORATORY Monocytes % 10.6 % [facility] LABORATORY Monocyte Abs 2.4 (H) 0.3 - 0.9 [facility] x10(3)/[facility] LABORATORY Eosinophils % 0.9 % [facility] LABORATORY Eosinophils Abs 0.2 0.0 - 0.4 [facility] x10(3)/[facility] LABORATORY Basophils % 0.3 % [facility] LABORATORY Basophils Abs 0.1 0.0 - 0.1 [facility] x10(3)/[facility] LABORATORY Immature Gran % 30.50 % [facility] LABORATORY Comment: Immature granulocytes(IG's)percentage an d absolute count will include metamyelocytes, myelocytes, and promyelo cytes. Blood smears from CBCs yielding IG's will be scanned manually for concor dance. If this scan disagrees with the automated IG or if promyelocytes are not ed, a manual differential will be performed. Gemini Gran Abs 7.06 (H) 0.00 - 0.04 x10(3)/[facility] LABORATORY Specimen Anatomical Collection Method Collection Time Receive d Time (Source) Location / / Volume Laterality Blood 02/12/2022 12:30 02/12/2022 1:03 AM EDT AM EDT Resulting Agency Comment Spec In Lab Kaitlyn Rock MD HEMATOLOGY ORDERABLES Performing Organization Address City/State/[place] [address] (ABNORMAL) Hemogram (02/12/2022 12:30 AM EDT) Analysis Performed At Patho logist Time Signature WBC 23.2 (H) 4.0 - 9.5 [facility] x10(3)/[facility] LABORATORY RBC 2.37 (L) 4.58 - [facility] 5.54 [facility] x10(6)/[facility] LABORATORY Hemoglobin 6.9 (L) 13.7 - [facility] 16.[facility] g/dL [facility] LABORATORY Hematocrit 20.7 (L) 40.5 - [facility] 48.5 % [facility] LABORATORY MCV 87.3 82.9 - [facility] 93.1 [facility] LABORATORY MCH 29.1 27.5 - [facility] 32.1 pg [facility] LABORATORY MCHC 33.3 32.0 - [facility] 35.7 g/dL [facility] LABORATORY Platelets 166 145 - 357 [facility] x10(3)/[facility] LABORATORY RDWSD 49.0 (H) 36.0 - [facility] 45.0 [facility] LABORATORY RDWCV 15.5 (H) 11.4 - [facility] 13.8 % [facility] LABORATORY MPV 10.2 7.6 - 12.9 [facility] LABORATORY nRBC % Auto 0.0 % [facility] LABORATORY nRBC Abs Auto 0.000 0.000 - [facility] 0.000 [facility] x10(3)/[facility] LABORATORY Specimen Anatomical Collection Method Collection Time Receive d Time (Source) Location / / Volume Laterality Blood 02/12/2022 12:30 02/12/2022 1:03 AM EDT AM EDT Resulting Agency Comment Spec In Lab Kaitlyn Rock MD HEMATOLOGY ORDERABLES Performing Organization Address City/State/[place] [address] (ABNORMAL) Basic Metabolic Panel (non-fasting) (02/12/2022 12:30 AM EDT) athologist Signature Glucose Lvl 103 65 - 199 [facility] mg/dL [facility] LABORATORY Comment: Diabetes: >=200 mg/dL plus symp toms BUN 39 (H) 10 - 20 mg/dL [facility] LABORATORY Comment: result rechecked-EWR Creatinine 3.74 (H) 0.80 - 1.50 mg/dL [facility] LABORATORY Comment: result rechecked-EWR Sodium 127 (L) 135 - 145 mmol/L [facility] LABORATORY Potassium 4.4 3.5 - 5.0 mmol/L [facility] LABORATORY Comment: Please note: ??Patients with WBC >100,00 0 may have falsely elevated Potassium levels. ??For accurate Potassium quantif ication in these patients send serum separator tube (gold top) for subsequent determinations. ??Contact the Clinical Chemistry Laboratory if there are any qu estions. Chloride 99 98 - 107 mmol/L [facility] LABORATORY CO2 21 (L) 22 - 31 mmol/L [facility] Anion Gap 7 5 - 15 mmol/L [facility] LABORATORY Calcium 6.1 (Critical) 8.5 - 10.5 mg/dL [facility] LABORATORY Comment: Called by: CLAUDIA, Read back by: Jesus Robertson, Date/Time:02/12/22 02:00. Estimated GFR 21 (L) >=60 mL/min/1.73 m?? [facility] LABORATORY Comment: This patient's estimated [...] Novak MD CHEMISTRY ORDERABLES Performing Organization Address City/[facility]/ZIP [facility] Phon e Number [address] Phosphorus (02/12/2022 12:30 AM EDT) P athologist Signature Phosphorus 2.7 2.5 - 4.5 [facility] mg/dL [facility] LABORATORY Specimen Anatomical Collection Method Collection Time Receive d Time (Source) Location / / Volume Laterality Blood 02/12/2022 12:30 02/12/2022 1:03 AM EDT AM EDT Resulting Agency Comment Spec In Lab Gela Novak MD CHEMISTRY ORDERABLES Performing Organization Address City/[facility]/ZIP Code Phon e Number [address] Magnesium (02/12/2022 12:30 AM EDT) P athologist Signature Magnesium 0.79 0.69 - 1.07 [facility] mmol/L [facility] LABORATORY Specimen Anatomical Collection Method Collection Time Receive d Time (Source) Location / / Volume Laterality Blood 02/12/2022 12:30 02/12/2022 1:03 AM EDT AM EDT Resulting Agency Comment Spec In Lab Gela Novak MD CHEMISTRY ORDERABLES Performing Organization Address City/[facility]/ZIP Code [place] [address] (ABNORMAL) Albumin Level (02/12/2022 12:30 AM EDT) P athologist Signature Albumin 1.3 (L) 3.2 - 5.2 [facility] g/dL [facility] LABORATORY Specimen Anatomical Collection Method Collection Time Receive d Time (Source) Location / / Volume Laterality Blood 02/12/2022 12:30 02/12/2022 1:03 AM EDT AM EDT Resulting Agency Comment Spec In Lab Parrish Betancourt MD CHEMISTRY ORDERABLES Performing Organization Address City/State/ZIP Code Phon e Number [address] (ABNORMAL) Prealbumin (02/12/2022 12:30 AM EDT) athologist Signature Prealbumin 15 (L) 20 - 40 [facility] mg[facility]dL [facility] LABORATORY Comment: Prealbumin levels are generally lower in the pediatric population; adult concentrations are usually attained near puberty. Specimen Anatomical Collection Method Collection Time Receive d Time (Source) Location / / Volume Laterality Blood 02/12/2022 12:30 02/12/2022 1:03 AM EDT AM EDT Resulting Agency Comment Spec In Lab Parrish Betancourt MD CHEMISTRY ORDERABLES Performing Organization Address City/[facility]/ZIP Code [place] [address] SCAN DOC: LAB (02/12/2022 [...] who have questions please contact the health wound care center consultant that requested your imaging first. ? Narrative [...] ho have questions please contact the health wound care center consultant that requested your imaging first. Parrish Betancourt MD IMG MRI ORDERABLES (ABNORMAL) Sodium (02/11/2022 4:09 PM EDT) athologist Signature Sodium 129 (L) 135 - 145 [facility] mmol/L [facility] LABORATORY Specimen Anatomical Collection Method Collection Time Receive d Time (Source) Location / / Volume Laterality Blood 02/11/2022 4:09 PM 2 4:33 EDT PM EDT Resulting Agency Comment Spec In Lab Parrish Betancourt MD CHEMISTRY ORDERABLES Performing Organization Address City/State/[place] [address] (ABNORMAL) Sodium (02/11/2022 8:20 AM EDT) P athologist Signature Sodium 127 (L) 135 - 145 [facility] mmol/L [facility] LABORATORY Specimen Anatomical Collection Method Collection Time Receive d Time (Source) Location / / Volume Laterality Blood 02/11/2022 8:20 AM 2 8:39 EDT AM EDT Resulting Agency Comment Spec In Lab Parrish Betancourt MD CHEMISTRY ORDERABLES Performing Organization Address City/[facility]/ZIP Code Phon e Number [address] Scan, Peripheral Blood (02/11/2022 12:37 AM EDT) [employer] Method Time Signature Plat Estimate Decreased [facility] LABORATORY RBC Morphology Abnormal [facility] LABORATORY Polychromasia Present >5/HPF [facility]OR[facility]ORY Ovalocytes 1-5 /HPF [facility] LABORATORY Stippled RBCs Present >1/HPF [facility] LABORATORY Dohle Bodies Present [facility] LABORATORY Specimen Anatomical Collection Method Collection Time Receive d Time (Source) Location / / Volume Laterality Blood 02/11/2022 12:37 02/11/2022 AM EDT 12:47 AM EDT Resulting Agency Comment Spec In Lab Jeanette Escamilla APRN HEMATOLOGY ORDERABLES Performing Organization Address City/[facility]/ZIP Code Phon e Number [address] Green Tube HOLD (02/11/2022 12:37 AM EDT) P athologist Signature Green Hold Sample in [facility] LABORATORY Specimen Anatomical Collection Method Collection Time Receive d Time (Source) Location / / Volume Laterality Blood Venous Draw / 02/11/2022 12:37 02/11/2022 Unknown AM EDT 12:48 AM EDT Jeanette Escamilla APRN CHEMISTRY ORDERABLES Performing Organization Address City/[facility]/ZIP Code [place] [address] (ABNORMAL) Differential, Automated (02/11/2022 12:37 AM EDT) [employer] Method Time Signature Neutrophils % 39.1 % [facility] LABORATORY Neutr Abs (ANC) 7.07 (H) 1.70 - [facility] 6.10 [facility] x10(3)/[facility] L LABORATORY Lymphocytes % 12.7 % [facility] LABORATORY Lymphocytes Abs 2.3 0.9 - 3.2 [facility] x10(3)/[facility] LABORATORY Monocytes % 11.4 % [facility] LABORATORY Monocyte Abs 2.1 (H) 0.3 - 0.9 [facility] x10(3)/[facility] LABORATORY Eosinophils % 2.9 % [facility] LABORATORY Eosinophils Abs 0.5 (H) 0.0 - 0.4 [facility] x10(3)/[facility] LABORATORY Basophils % 0.5 % [facility] LABORATORY Basophils Abs 0.1 0.0 - 0.1 [facility] x10(3)/[facility] LABORATORY Immature Gran % 33.40 % [facility] LABORATORY Comment: Immature granulocytes(IG's)percentage an d absolute count will include metamyelocytes, myelocytes, and promyelo cytes. Blood smears from CBCs yielding IG's will be scanned manually for concor dance. If this scan disagrees with the automated IG or if promyelocytes are not ed, a manual differential will be performed. Gemini Gran Abs 6.04 (H) 0.00 - 0.04 x10(3)/[facility] LABORATORY Specimen Anatomical Collection Method Collection Time Receive d Time (Source) Location / / Volume Laterality Blood 02/11/2022 12:37 02/11/2022 AM EDT 12:47 AM EDT Resulting Agency Comment Spec In Lab Jeanette Escamilla APRN HEMATOLOGY ORDERABLES Performing Organization Address City/State/[place] [address] (ABNORMAL) Hemogram (02/11/2022 12:37 AM EDT) Analysis Performed At Patho logist Time Signature WBC 18.1 (H) 4.0 - 9.5 [facility] x10(3)/[facility] LABORATORY RBC 2.44 (L) 4.58 - [facility] 5.54 [facility] x10(6)/[facility] LABORATORY Hemoglobin 7.0 (L) 13.7 - [facility] 16.5 g/dL [facility] LABORATORY Hematocrit 21.0 (L) 40.5 - [facility] 48.5 % [facility] LABORATORY MCV 86.1 82.9 - [facility] 93.1 [facility] LABORATORY MCH 28.7 27.5 - [facility] 32.1 pg [facility] LABORATORY MCHC 33.3 32.0 - [facility] 35.7 g/dL [facility] LABORATORY Platelets 140 (L) 145 - 357 [facility] x10(3)/[facility] LABORATORY RDWSD 50.0 (H) 36.0 - [facility] 45.0 [facility] LABORATORY RDWCV 15.9 (H) 11.4 - [facility] 13.8 % [facility] LABORATORY MPV 10.0 7.6 - 12.9 [facility] LABORATORY nRBC % Auto 0.0 % [facility] LABORATORY nRBC Abs Auto 0.000 0.000 - [facility] 0.000 [facility] x10(3)/[facility] LABORATORY Specimen Anatomical Collection Method Collection Time Receive d Time (Source) Location / / Volume Laterality Blood 02/11/2022 12:37 02/11/2022 AM EDT 12:47 AM EDT Resulting Agency Comment Spec In Lab Jeanette Escamilla APRN HEMATOLOGY ORDERABLES Performing Organization Address City/State/[place] [address] (ABNORMAL) Basic Metabolic Panel (non-fasting) (02/11/2022 12:37 AM EDT) P athologist Signature Glucose Lvl 125 65 - 199 [facility] mg/dL [facility] LABORATORY Comment: Diabetes: >=200 mg/dL plus symp toms BUN 23 (H) 10 - 20 mg/dL [facility] LABORATORY Creatinine 2.42 (H) 0.80 - 1.50 mg/dL [facility] LABORATORY Sodium 128 (L) 135 - 145 mmol/L [facility] LABORATORY Potassium 3.8 3.5 - 5.0 mmol/L [facility] LABORATORY Comment: Please note: ??Patients with WBC >100,00 0 may have falsely elevated Potassium levels. ??For accurate Potassium quantif ication in these patients send serum separator tube (gold top) for subsequent determinations. ??Contact the Clinical Chemistry Laboratory if there are any qu estions. Chloride 96 (L) 98 - 107 mmol/L [facility] LABORATORY CO2 26 22 - 31 mmol/L [facility] LABORATORY Anion Gap 6 5 - 15 mmol/L [facility] LABORATORY Calcium 6.4 (Critical) 8.5 - 10.5 mg/dL [facility] LABORATORY Comment: Called by: kvng, Read back by: sakshi abreu, Date/Time:02/11/22 01:43.l Estimated GFR 36 (L) >=60 mL/min/1.73 m?? [facility] LABORATORY Comment: This patient's estimated [...] Organization Address City/State/[place] [address] (ABNORMAL) Phosphorus (02/11/2022 12:37 AM EDT) P athologist Signature Phosphorus 2.1 (L) 2.5 - 4.5 [facility] mg/dL [facility] LABORATORY Specimen Anatomical Collection Method Collection Time Receive d Time (Source) Location / / Volume Laterality Blood 02/11/2022 12:37 02/11/2022 AM EDT 12:47 AM EDT Resulting Agency Comment Spec In Lab Gela Novak MD CHEMISTRY ORDERABLES Performing Organization Address City/State/ZIP [place] [address] Magnesium (02/11/2022 12:37 AM EDT) athologist Signature Magnesium 0.75 0.69 - 1.07 [facility] mmol/L [facility] LABORATORY Specimen Anatomical Collection Method Collection Time Receive d Time (Source) Location / / Volume Laterality Blood 02/11/2022 12:37 02/11/2022 AM EDT 12:47 AM EDT Resulting Agency Comment Spec In Lab Gela Novak MD CHEMISTRY ORDERABLES Performing Organization Address City/State/ZIP Code [place] [address] (ABNORMAL) Sodium (02/10/2022 4:47 PM EDT) athologist Signature Sodium 132 (L) 135 - 145 [facility] mmol/L [facility] LABORATORY Specimen Anatomical Collection Method Collection Time Receive d Time (Source) Location / / Volume Laterality Blood 02/10/2022 4:47 PM 5:02 EDT PM EDT Resulting Agency Comment Spec In Lab Parrish Betancourt MD CHEMISTRY ORDERABLES Performing Organization Address City/State/ZIP Code [place] [address] (ABNORMAL) Sodium (02/10/2022 9:05 AM EDT) athologist Signature Sodium 129 (L) 135 - 145 [facility] mmol/L [facility] LABORATORY Specimen Anatomical Collection Method Collection Time Receive d Time (Source) Location / / Volume Laterality Blood Venous Draw / 02/10/2022 9:05 AM 02/11/20 9:36 Unknown EDT AM EDT Resulting Agency Comment Spec In Lab Kaitlyn Rock MD CHEMISTRY ORDERABLES Performing Organization Address City/[facility]/ZIP Code Phon e Number [address] Scan, Peripheral Blood (02/10/2022 12:00 AM EDT) [facility] gist Method Time Signature Plat Estimate Decreased [facility] LABORATORY RBC Morphology Abnormal [facility] LABORATORY Polychromasia Present >5/HPF [facility] LABORATORY Ovalocytes 1-5 /HPF [facility] LABORATORY Martin Cells 1-5 /HPF [facility] LABORATORY Stippled RBCs Present >1/HPF [facility] LABORATORY Dohle Bodies Present [facility] LABORATORY Giant Platelets Less than 1 /HPF [facility] LABORATORY Specimen (Source) Anatomical Collection Method Collection Time Re ceived Time Location / / Volume Laterality Blood 02/10/2022 02/10/2022 12:4 0 AM EDT Resulting Agency Comment Spec In Lab Kaitlyn Rock MD HEMATOLOGY ORDERABLES Performing Organization Address City/State/[place] [address] (ABNORMAL) Differential, Automated (02/10/2022 12:00 AM EDT) [facility] gist Method Time Signature Neutrophils % 52.5 % [facility] LABORATORY Neutr Abs (ANC) 8.47 (H) 1.70 - [facility] 6.10 [facility] x10(3)/[facility] LABORATORY Lymphocytes % 12.2 % [facility] LABORATORY Lymphocytes Abs 2.0 0.9 - 3.2 [facility] x10(3)/[facility] LABORATORY Monocytes % 17.3 % [facility] LABORATORY Monocyte Abs 2.8 (H) 0.3 - 0.9 [facility] x10(3)/[facility] LABORATORY Eosinophils % 2.5 % [facility] LABORATORY Eosinophils Abs 0.4 0.0 - 0.4 [facility] x10(3)[facility] LABORATORY Basophils % 0.4 % [facility] LABORATORY Basophils Abs 0.1 0.0 - 0.1 [facility] x10(3)[facility] LABORATORY Immature Gran % 15.10 % [facility] LABORATORY Comment: Immature granulocytes(IG's)percentage an d absolute count will include metamyelocytes, myelocytes, and promyelo cytes. Blood smears from CBCs yielding IG's will be scanned manually for concor dance. If this scan disagrees with the automated IG or if promyelocytes are not ed, a manual differential will be performed. Gemini Gran Abs 2.44 (H) 0.00 - 0.04 x10(3)/[facility] LABORATORY Specimen (Source) Anatomical Collection Method Collection Time Re ceived Time Location / / Volume Laterality Blood 02/10/2022 02/10/2022 12:4 0 AM EDT Resulting Agency Comment Spec In Lab Kaitlyn Rock MD HEMATOLOGY ORDERABLES Performing Organization Address City/State/[place] [address] (ABNORMAL) Hemogram (02/10/2022 12:00 AM EDT) Analysis Performed At Patho logist Time Signature WBC 16.1 (H) 4.0 - 9.5 [facility] x10(3)/[facility] LABORATORY RBC 2.96 (L) 4.58 - [facility] 5.54 [facility] x10(6)/[facility] LABORATORY Hemoglobin 8.6 (L) 13.7 - [facility] 16.5 g/dL [facility] LABORATORY Hematocrit 25.2 (L) 40.5 - [facility] 48.5 % [facility] LABORATORY MCV 85.1 82.9 - [facility] 93.1 [facility] LABORATORY MCH 29.1 27.5 - [facility] 32.1 pg [facility] LABORATORY MCHC 34.1 32.0 - [facility] 35.7 g/dL [facility] LABORATORY Platelets 121 (L) 145 - 357 [facility] x10(3)/[facility] LABORATORY RDWSD 50.4 (H) 36.0 - [facility] 45.0 [facility] LABORATORY RDWCV 16.4 (H) 11.4 - [facility] 13.8 % [facility] LABORATORY MPV 10.6 7.6 - 12.9 [facility] LABORATORY nRBC % Auto 0.0 % [facility] LABORATORY nRBC Abs Auto 0.000 0.000 - [facility] 0.000 [facility] x10(3)/[facility] LABORATORY Specimen (Source) Anatomical Collection Method Collection Time Re ceived Time Location / / Volume Laterality Blood 02/10/2022 02/10/2022 12:4 0 AM EDT Resulting Agency Comment Spec In Lab Kaitlyn Rock MD HEMATOLOGY ORDERABLES Performing Organization Address City/[facility]/ZIP Code [place] [address] Phosphorus (02/10/2022 12:00 AM EDT) athologist Signature Phosphorus 3.1 2.5 - 4.5 [facility] mg/dL [facility] LABORATORY Specimen (Source) Anatomical Collection Method Collection Time Re ceived Time Location / / Volume Laterality Blood 02/10/2022 02/10/2022 12:4 0 AM EDT Resulting Agency Comment Spec In Lab Gela Novak MD CHEMISTRY ORDERABLES Performing Organization Address City/[facility]/ZIP Code [place] [address] Magnesium (02/10/2022 12:00 AM EDT) athologist Signature Magnesium 0.87 0.69 - 1.07 [facility] mmol/L [facility] LABORATORY Specimen (Source) Anatomical Collection Method Collection Time Re ceived Time Location / / Volume Laterality Blood 02/10/2022 02/10/2022 12:4 0 AM EDT Resulting Agency Comment Spec In Lab Gela Novak MD CHEMISTRY ORDERABLES Performing Organization Address City/[facility]/ZIP [facility] [place] [address] (ABNORMAL) Basic Metabolic Panel (non-fasting) (02/10/2022 12:00 AM EDT) athologist Signature Glucose Lvl 164 65 - 199 [facility] mg/dL [facility] LABORATORY Comment: Diabetes: >=200 mg/dL plus symp toms BUN 21 (H) 10 - 20 mg/dL [facility] LABORATORY Creatinine 1.89 (H) 0.80 - 1.50 mg/dL [facility] LABORATORY Sodium 130 (L) 135 - 145 mmol/L [facility] LABORATORY Potassium 3.9 3.5 - 5.0 mmol/L [facility] LABORATORY Comment: Please note: ??Patients with WBC >100,00 0 may have falsely elevated Potassium levels. ??For accurate Potassium quantif ication in these patients send serum separator tube (gold top) for subsequent determinations. ??Contact the Clinical Chemistry Laboratory if there are any qu estions. Chloride 96 (L) 98 - 107 mmol/L [facility] LABORATORY CO2 22 22 - 31 mmol/L [facility] LABORATORY Anion Gap 12 5 - 15 mmol/L [facility] LABORATORY Calcium 7.2 (L) 8.5 - 10.5 mg/dL [facility] LABORATORY Estimated GFR 48 (L) >=60 mL/min/1.73 m?? [facility] LABORATORY Comment: This patient's estimated [...] Organization Address City/State/[place] [address] (ABNORMAL) Blood Gas Arterial (NLH) (02/09/2022 5:43 PM EDT) Analysis Performed At Patho logist Time Signature pH Art 7.46 (H) 7.35 - [facility] 7.45 [facility] LABORATORY pCO2 Art 35 35 - 45 [facility] LABORATORY pO2 Art 73 (L) 85 - 104 [facility] LABORATORY HCO3 Art 24.8 20.0 - [facility] 26.0 [facility] mmol/L [facility] LABORATORY BE Art 1.1 -3.0 - 3.0 [facility] mmol/L [facility] LABORATORY Hgb Blood Gas 9.2 (L) 13.7 - [facility] 16.5 g/dL [facility] LABORATORY O2HB Art 94.9 94.0 - [facility] 97.0 % [facility] LABORATORY COHB Art 0.5 % [facility] LABORATORY Comment: Nonsmokers: ??0.5-1.5% COHB Smokers: ??Variable, but usually less th an 10% Toxic: 20 - 30% COHB Lethal: ??Greater than 60% COHB METHB Art 0.3 <=1.5 % [facility] LABORATORY Na Whole Blood 126 (L) 135 - 145 mmol/L [facility] LABORATORY K Whole Blood 4.2 3.5 - 5.0 mmol/L [facility] LABORATORY Comment: Please note: ??Patients with WBC >100,00 0 may have falsely elevated Potassium levels. ??Contact the Clinical Chemistry Laboratory if there are any questions. ICa Whole Blood 1.12 (L) 1.15 - 1.33 mmol/L [facility] LABORATORY Comment: Note: ??Total bilirubin higher than 20 m g/dL may lead to falsely low ionized calcium. CL Whole Blood 100 98 - 107 mmol/L [facility] LABORATORY Gluc Whole Bld 97 65 - 199 mg/dL [facility] LABORATORY Comment: Diabetes: >=200 mg/dL plus symp toms. Lactate WB 1.1 0.5 - 2.2 mmol/L [facility] LABORATORY Specimen Anatomical Collection Method Collection Time Receive d Time (Source) Location / / Volume Laterality Blood Arterial Draw / 02/09/2022 5:43 PM 2021 5:43 Unknown EDT PM EDT Resulting Agency Comment Spec In Lab Kaitlyn Rock MD CHEMISTRY ORDERABLES Performing Organization Address City/State/[place] [address] Phosphorus (02/09/2022 5:35 PM EDT) athologist Signature Phosphorus 3.2 2.5 - 4.5 [facility] mg/dL [facility] LABORATORY Specimen Anatomical Collection Method Collection Time Receive d Time (Source) Location / / Volume Laterality Blood 02/09/2022 5:35 PM 2 5:44 EDT PM EDT Resulting Agency Comment Spec In Lab Parrish Betancourt MD CHEMISTRY ORDERABLES Performing Organization Address City/[facility]/ZIP Code [place] [address] (ABNORMAL) Electrolytes panel (02/09/2022 5:35 PM EDT) athologist Signature Sodium 132 (L) 135 - 145 [facility] mmol/L [facility] HOSPITAL LABORATORY Potassium 4.3 3.5 - 5.0 [facility] mmol/L [facility] LABORATORY Comment: Please note: ??Patients with WBC >100,00 0 may have falsely elevated Potassium levels. ??For accurate Potassium quantif ication in these patients send serum separator tube (gold top) for subsequent determinations. ??Contact the Clinical Chemistry Laboratory if there are any qu estions. Chloride 100 98 - 107 mmol/L [facility] LABORATORY CO2 21 (L) 22 - 31 mmol/L [facility] LABOR[facility]ORY Anion Gap 11 5 - 15 mmol/L [facility] LABORATORY Specimen Anatomical Collection Method Collection Time Receive d Time (Source) Location / / Volume Laterality Blood 02/09/2022 5:35 PM 2 5:44 EDT PM EDT Resulting Agency Comment Spec In Lab Parrish Betancourt MD CHEMISTRY ORDERABLES Performing Organization Address City/[facility]/[place] [address] (ABNORMAL) Sodium (02/09/2022 5:35 PM EDT) athologist Signature Sodium 132 (L) 135 - 145 [facility] mmol/L [facility] LABORATORY Specimen Anatomical Collection Method Collection Time Receive d Time (Source) Location / / Volume Laterality Blood 02/09/2022 5:35 PM 2 5:44 EDT PM EDT Resulting Agency Comment Spec In Lab Parrish Betancourt MD CHEMISTRY ORDERABLES Performing Organization Address City/[facility]/ZIP Code Phon e Number [address] Anaerobic Culture (02/09/2022 4:26 PM EDT) [employer] Method Time Signature Anaerobic No anaerobic [facility] Culture organisms [facility] LABORATORY Specimen Anatomical Collection Method Collection Time Receive d Time (Source) Location / / Volume Laterality Thigh 02/09/2022 4:26 PM 2 5:23 EDT PM EDT Comment: Left thigh Resulting Agency Comment Spec In Lab Jeanette Chatterjee MD MICROBIOLOGY - GENERAL ORDER JT Performing Organization Address [facility] Phon e Number [address] (ABNORMAL) Tissue culture (02/09/2022 4:26 PM EDT) Component Value Ref Test Analysis Performed At [employer] Range Method Time Signature Tissue Few Pseudomonas aeruginosa MAR Y Culture Few Serratia marcescens [facility] OCK Susceptibilities previously reported [facility] LABORATORY Gram Stain Many Neutrophils seen [facility] Moderate Gram Negative Rods seen [facility] Results called to and read back by Lilibeth Dial RN [facility] 02/09/22 18:20:09 HOSPITAL () LABORATORY Organism Pseudomonas [facility] aeruginosa (A) [facility] LABORATORY Organism Serratia marcescens [facility] (A) [facility] LABORATORY Organism Gram Negative Rods [facility] (A) [facility] LABORATORY Specimen Anatomical Collection Method Collection Time Receive d Time (Source) Location / / Volume Laterality Thigh 02/09/2022 4:26 PM 2 5:23 EDT PM EDT Comment: Left thigh Resulting Agency Comment Spec In Lab Jeanette Chatterjee MD MICROBIOLOGY - GENERAL ORDER JT Performing Organization Address City/[facility]/ZIP [facility] [place] [address] (ABNORMAL) Sodium (02/09/2022 12:29 PM EDT) athologist Signature Sodium 132 (L) 135 - 145 [facility] mmol/L [facility] LABORATORY Specimen Anatomical Collection Method Collection Time Receive d Time (Source) Location / / Volume Laterality Blood 02/09/2022 12:29 02/09/2022 PM EDT 12:29 PM EDT Resulting Agency Comment Spec In Lab Parrish Betancourt MD CHEMISTRY ORDERABLES Performing Organization Address City/State/[place] [address] (ABNORMAL) Blood Gas Arterial (NLH) (02/09/2022 12:20 PM EDT) Analysis Performed At Patho logist Time Signature pH Art 7.47 (H) 7.35 - [facility] 7.45 [facility] LABORATORY pCO2 Art 33 (L) 35 - 45 [facility] LABORATORY pO2 Art 105 (H) 85 - 104 [facility] LABORATORY HCO3 Art 23.6 20.0 - [facility] 26.0 [facility] mmol/[facility] LABORATORY BE Art -0.1 -3.0 - 3.0 [facility] mmol/L [facility] LABORATORY Hgb Blood Gas 9.6 (L) 13.7 - [facility] 16.5 g/dL [facility] O2HB Art 97.2 (H) 94.0 - [facility] 97.0 % [facility] LABORATORY COHB Art 0.8 % [facility] LABORATORY Comment: Nonsmokers: ??0.5-1.5% COHB Smokers: ??Variable, but usually less th an 10% Toxic: 20 - 30% COHB Lethal: ??Greater than 60% COHB METHB Art 0.3 <=1.5 % [facility] LABORATORY Na Whole Blood 126 (L) 135 - 145 mmol/L [facility] LABORAT[facility] K Whole Blood 4.2 3.5 - 5.0 mmol/L [facility] LABORATORY Comment: Please note: ??Patients with WBC >100,00 0 may have falsely elevated Potassium levels. ??Contact the Clinical Chemistry Laboratory if there are any questions. ICa Whole Blood 1.16 1.15 - 1.33 mmol/L [facility] LABORATORY Comment: Note: ??Total bilirubin higher than 20 m g/dL may lead to falsely low ionized calcium. CL Whole Blood 99 98 - 107 mmol/L [facility] LABORATORY Gluc Whole Bld 97 65 - 199 mg/dL [facility] LABORATORY Comment: Diabetes: >=200 mg/dL plus symp toms. Lactate WB 1.1 0.5 - 2.2 mmol/L [facility] LABORATORY FIO2 Art 21 % [facility] LABORATORY PF Ratio Art 500 [facility] LABORATORY Temp Art 36.6 Celsius [facility] LABORATORY Specimen Anatomical Collection Method Collection Time Receive d Time (Source) Location / / Volume Laterality Blood Arterial Draw / 02/09/2022 12:20 02/10/20 22 Unknown PM EDT 12:27 PM EDT Resulting Agency Comment Spec In Lab Kaitlyn Rock MD CHEMISTRY ORDERABLES Performing Organization Address City/[facility] Phon e Number [address] Phosphorus (02/09/2022 10:08 AM EDT) P athologist Signature Phosphorus 3.1 2.5 - 4.5 [facility] mg/dL [facility] LABORATORY Specimen Anatomical Collection Method Collection Time Receive d Time (Source) Location / / Volume Laterality Blood 02/09/2022 10:08 02/09/2022 AM EDT 10:34 AM EDT Resulting Agency Comment Spec In Lab Parrish Betancourt MD CHEMISTRY ORDERABLES Performing Organization Address City/[facility]/ZIP Code Phon e Number [address] Phosphorus (02/09/2022 6:25 AM EDT) P athologist Signature Phosphorus 2.6 2.5 - 4.5 [facility] mg/dL [facility] LABORATORY Specimen Anatomical Collection Method Collection Time Receive d Time (Source) Location / / Volume Laterality Blood 02/09/2022 6:25 AM 6:48 EDT AM EDT Resulting Agency Comment Spec In Lab Parrish Betancourt MD CHEMISTRY ORDERABLES Performing Organization Address City/[facility] Phon e Number [place] [phone] [facility] LABORATORY Drive (ABNORMAL) Sodium (02/09/2022 6:25 AM EDT) P athologist Signature Sodium 130 (L) 135 - 145 [facility] mmol/L [facility] LABORATORY Specimen Anatomical Collection Method Collection Time Receive d Time (Source) Location / / Volume Laterality Blood 02/09/2022 6:25 AM 2 6:48 EDT AM EDT Resulting Agency Comment Spec In Lab Parrish Betancourt MD CHEMISTRY ORDERABLES Performing Organization Address City/[facility]/ZIP Code Phon e Number [address] Transfuse RBC (02/09/2022 5:45 AM EDT) Parrish Betancourt MD NURSING TREATMENT ORDERABLES - BLOOD ADMIN Transfuse RBC (02/09/2022 5:45 AM EDT) Parrish Betancourt MD NURSING TREATMENT ORDERABLES - BLOOD ADMIN Type and Screen Validity (02/09/2022 2:30 AM EDT) [employer] Method Time Signature T&S only valid [facility] LABORATORY Comment: This Type and Screen result is only valid at the [facility] Specimen Anatomical Collection Method Collection Time Receive d Time (Source) Location / / Volume Laterality Blood 02/09/2022 2:30 AM 2 2:47 EDT AM EDT Resulting Agency Comment Spec In Lab Thomas Daniel MD BLOOD BANK ORDERABLES Performing Organization Address City/[facility]/ZIP Code Phon e Number [address] ABORH Recheck Status (02/09/2022 2:30 AM EDT) [employer] Method Time Signature ABORH Type Completed [facility] LABORATORY Specimen Anatomical Collection Method Collection Time Receive d Time (Source) Location / / Volume Laterality Blood 02/09/2022 2:30 AM 2 2:47 EDT AM EDT Resulting Agency Comment Spec In Lab Thomas Daniel MD BLOOD BANK ORDERABLES Performing Organization Address City/State/ZIP [place] [address] Antibody screen (02/09/2022 2:30 AM EDT) Patholo gist Method Time Signature Ab Screen Negative [facility] LABORATORY Expires at 02/12/2022 [facility] [place] [id number] on: [facility] LABORATORY Specimen Anatomical Collection Method Collection Time Receive d Time (Source) Location / / Volume Laterality Blood 02/09/2022 2:30 AM 2 2:47 EDT AM EDT Resulting Agency Comment Spec In Lab Thomas Daniel MD BLOOD BANK ORDERABLES Performing Organization Address City/[facility]/ZIP Code [place] [address] ABO/Rh Typing (02/09/2022 2:30 AM EDT) P athologist Signature ABORh Type A Pos [facility] LABORATORY Specimen Anatomical Collection Method Collection Time Receive d Time (Source) Location / / Volume Laterality Blood 02/09/2022 2:30 AM 2 2:47 EDT AM EDT Resulting Agency Comment Spec In Lab Thomas Daniel MD BLOOD BANK ORDERABLES Performing Organization Address City/[facility]/ZIP Code [place] [address] Prepare RBC (02/09/2022 2:20 AM EDT) P athologist Signature Dispensed? Yes [facility] LABORATORY Specimen Anatomical Collection Method Collection Time Receive d Time (Source) Location / / Volume Laterality Blood 02/09/2022 2:20 AM 2 2:21 EDT AM EDT Parrish Betacnourt MD BLOOD BANK ORDERABLES Performing Organization Address City/[facility]/ZIP [place] [address] (ABNORMAL) BLOOD GAS 2 ARTERIAL (02/09/2022 1:02 AM EDT) Analysis Performed At Patho logist Time Signature pH Art 7.49 (H) 7.35 - [facility] 7.45 [facility] LABORATORY pCO2 Art 30 (L) 35 - 45 [facility] mmHg [facility] LABORATORY pO2 Art 92 85 - 104 [facility] LABORATORY HCO3 Art 22.5 20.0 - [facility] 26.0 [facility] mmol/[facility] LABORATORY BE Art -0.9 -3.0 - 3.0 [facility] mmol/L [facility] LABORATORY Hgb Blood Gas 8.1 (L) 13.7 - [facility] 16.5 g/dL [facility] O2HB Art 95.1 94.0 - [facility] 97.0 % [facility] LABORATORY COHB Art 0.3 % [facility] LABORATORY Comment: Nonsmokers: 0.5-1.5% COHB Smokers: Variable, but usually less than 10% Toxic: 20-30% COHB Lethal: Greater than 60% COHB METHB Art 1.0 <=1.5 % [facility] LABORATORY Na Whole Blood 122 (L) 135 - 145 mmol/L [facility] LABORATORY K Whole Blood 3.9 3.5 - 5.0 mmol/L [facility] LABORATORY Comment: Please note: Patients with WBC >100,000 may have falsely elevated Potassium levels. Contact the Clinical Chemistry L aboratory if there are any questions. ICa Whole Blood 1.18 1.15 - 1.33 mmol/L [facility] LABORATORY Comment: Note: ??Total bilirubin higher than 20 m g/dL may lead to falsely low ionized calcium. CL Whole Blood 98 98 - 107 mmol/L [facility] LABORATORY Gluc Whole Bld 125 65 - 199 mg/dL [facility] LABORATORY Comment: Diabetes: >=200 mg/dL plus symp toms. Lactate WB 2.2 0.5 - 2.2 mmol/L [facility] LABORATORY Specimen Anatomical Collection Method Collection Time Receive d Time (Source) Location / / Volume Laterality Blood 02/09/2022 1:02 AM 2 1:02 EDT AM EDT Parrish Betancourt MD CHEMISTRY ORDERABLES Performing Organization Address City/State/[place] [address] [facility] LAB[address] Drive Scan, Peripheral Blood (02/09/2022 12:55 AM EDT) [facility] Method Time Signature Plat Estimate Decreased [facility] LABORATORY RBC Morphology Abnormal [facility] LABOR[facility]ORY Polychromasia Present >5/HPF [facility] LABORATORY Ovalocytes 1-5 /HPF [facility] LABOR[facility] Angel Cells 1-5 /HPF [facility] LABORATORY Stippled RBCs Present >1/HPF [facility] LABORATORY Pappenheimer Bdy Present >1/HPF [facility] LABORATORY Dohle Bodies Present [facility] LABORAT[facility] Giant Platelets Less than 1 /HPF [facility] LABORATORY Specimen Anatomical Collection Method Collection Time Receive d Time (Source) Location / / Volume Laterality Blood 02/09/2022 12:55 02/09/2022 1:07 AM EDT AM EDT Resulting Agency Comment Spec In Lab Kaitlyn Rock MD HEMATOLOGY ORDERABLES Performing Organization Address City/State/ZIP Code Phon e Number [address] (ABNORMAL) Differential, Automated (02/09/2022 12:55 AM EDT) [facility] [employer] Method Time Signature Neutrophils % 57.4 % [facility] LABORATORY Neutr Abs (ANC) 7.26 (H) 1.70 - [facility] 6.10 [facility] x10(3)/[facility] L LABORATORY Lymphocytes % 10.1 % [facility] LABORATORY Lymphocytes Abs 1.3 0.9 - 3.2 [facility] x10(3)/[facility] LABORATORY Monocytes % 17.7 % [facility] LABORATORY Monocyte Abs 2.2 (H) 0.3 - 0.9 [facility] x10(3)/[facility] LABORATORY Eosinophils % 1.3 % [facility] LABORATORY Eosinophils Abs 0.2 0.0 - 0.4 [facility] x10(3)/[facility] LABORATORY Basophils % 0.4 % [facility] LABORATORY Basophils Abs 0.0 0.0 - 0.1 [facility] x10(3)/[facility] LABORATORY Immature Gran % 13.10 % [facility] LABORATORY Comment: Immature granulocytes(IG's)percentage an d absolute count will include metamyelocytes, myelocytes, and promyelo cytes. Blood smears from CBCs yielding IG's will be scanned manually for concor dance. If this scan disagrees with the automated IG or if promyelocytes are not ed, a manual differential will be performed. Gemini Gran Abs 1.65 (H) 0.00 - 0.04 x10(3)/[facility] LABORATORY Specimen Anatomical Collection Method Collection Time Receive d Time (Source) Location / / Volume Laterality Blood 02/09/2022 12:55 02/09/2022 1:07 AM EDT AM EDT Resulting Agency Comment Spec In Lab Kaitlyn Rock MD HEMATOLOGY ORDERABLES Performing Organization Address City/State/ZIP Code Phon e Number [place] [phone] HOSPITAL LABORATORY Drive (ABNORMAL) Hemogram (02/09/2022 12:55 AM EDT) [facility] gist Method Time Signature WBC 12.6 (H) 4.0 - 9.5 [facility] x10(3)/[facility] LABORATORY RBC 2.46 (L) 4.58 - [facility] 5.54 [facility] x10(6)/[facility] LABORATORY Hemoglobin 7.1 (L) 13.7 - [facility] 16.5 g/dL [facility] LABORATORY Hematocrit 20.7 (L) 40.5 - [facility] 48.5 % [facility] LABORATORY MCV 84.1 82.9 - [facility] 93.1 [facility] LABORATORY MCH 28.9 27.5 - [facility] 32.1 pg [facility] LABORATORY MCHC 34.3 32.0 - [facility] 35.7 g/dL [facility] LABORATORY Platelets 97 (L) 145 - 357 [facility] x10(3)/[facility] LABORATORY RDWSD 49.4 (H) 36.0 - [facility] 45.0 [facility] LABORATORY RDWCV 17.8 (H) 11.4 - [facility] 13.8 % [facility] LABORATORY MPV 9.8 7.6 - 12.9 [facility] LABORATORY nRBC % Auto 0.2 % [facility] LABORATORY nRBC Abs Auto 0.020 (H) 0.000 - [facility] 0.000 [facility] x10(3)/[facility] LABORATORY Specimen Anatomical Collection Method Collection Time Receive d Time (Source) Location / / Volume Laterality Blood 02/09/2022 12:55 02/09/2022 1:07 AM EDT AM EDT Resulting Agency Comment Spec In Lab Kaitlyn Rock MD HEMATOLOGY ORDERABLES Performing Organization Address City/State/[place] [address] (ABNORMAL) Basic Metabolic Panel (non-fasting) (02/09/2022 12:55 AM EDT) P athologist Signature Glucose Lvl 128 65 - 199 [facility] mg/dL [facility] LABORATORY Comment: Diabetes: >=200 mg/dL plus symp toms BUN 26 (H) 10 - 20 mg/dL [facility] LABORATORY Creatinine 2.46 (H) 0.80 - 1.50 mg/dL [facility] LABORATORY Sodium 126 (L) 135 - 145 mmol/L [facility] LABORATORY Potassium 4.2 3.5 - 5.0 mmol/L [facility] LABORATORY Comment: Please note: ??Patients with WBC >100,00 0 may have falsely elevated Potassium levels. ??For accurate Potassium quantif ication in these patients send serum separator tube (gold top) for subsequent determinations. ??Contact the Clinical Chemistry Laboratory if there are any qu estions. Chloride 95 (L) 98 - 107 mmol/L [facility] LABORATORY CO2 22 22 - 31 mmol/L [facility] LABORATORY Anion Gap 9 5 - 15 mmol/L [facility] LABORATORY Calcium 7.7 (L) 8.5 - 10.5 mg/dL [facility] LABORATORY Estimated GFR 35 (L) >=60 mL/min/1.73 m?? [facility] LABORATORY Comment: This patient's estimated [...] Novak MD CHEMISTRY ORDERABLES Performing Organization Address City/[facility]/ZIP [place] [address] (ABNORMAL) Phosphorus (02/09/2022 12:55 AM EDT) P athologist Signature Phosphorus 2.3 (L) 2.5 - 4.5 [facility] mg/dL [facility] LABORATORY Specimen Anatomical Collection Method Collection Time Receive d Time (Source) Location / / Volume Laterality Blood 02/09/2022 12:55 02/09/2022 1:07 AM EDT AM EDT Resulting Agency Comment Spec In Lab Gela Novak MD CHEMISTRY ORDERABLES Performing Organization Address City/[facility]/ZIP Code [place] [address] Magnesium (02/09/2022 12:55 AM EDT) P athologist Signature Magnesium 0.94 0.69 - 1.07 [facility] mmol/L [facility] LABORATORY Specimen Anatomical Collection Method Collection Time Receive d Time (Source) Location / / Volume Laterality Blood 02/09/2022 12:55 02/09/2022 1:07 AM EDT AM EDT Resulting Agency Comment Spec In Lab Gela Novak MD CHEMISTRY ORDERABLES Performing Organization Address City/[facility]/ZIP Code [place] [address] Scan, Peripheral Blood (02/08/2022 6:00 PM EDT) [employer] Method Time Signature Plat Estimate Decreased [facility] LABORATORY RBC Morphology Abnormal [facility] LABORATORY Macrocytes 1-5 /HPF [facility] LABORATORY Microcytes 1-5 /HPF [facility] LABORATORY Polychromasia Present >5/HPF [facility] LABORATORY Ovalocytes 1-5 /HPF [facility] LABORATORY Angel Cells 1-5 /HPF [facility] LABORATORY Stippled RBCs Present >1/HPF [facility] LABORATORY Pappenheimer Bdy Present >1/HPF [facility] LABORATORY Dohle Bodies Present [facility] LABORATORY Giant Platelets Less than 1 /HPF [facility] LABORATORY Specimen Anatomical Collection Method Collection Time Receive d Time (Source) Location / / Volume Laterality Blood 02/08/2022 6:00 PM 6:21 EDT PM EDT Resulting Agency Comment Spec In Lab Rogers Solano APRN HEMATOLOGY ORDERABLES Performing Organization Address City/State/ZIP Code Phon e Number [address] (ABNORMAL) Differential, Automated (02/08/2022 6:00 PM EDT) [employer] Method Time Signature Neutrophils % 64.6 % [facility] LABORATORY Neutr Abs (ANC) 7.81 (H) 1.70 - [facility] 6.10 [facility] x10(3)/[facility] L LABORATORY Lymphocytes % 7.2 % [facility] LABORATORY Lymphocytes Abs 0.9 0.9 - 3.2 [facility] x10(3)/[facility] LABORATORY Monocytes % 14.2 % [facility] LABORATORY Monocyte Abs 1.7 (H) 0.3 - 0.9 [facility] x10(3)/[facility] LABORATORY Eosinophils % 1.3 % [facility] LABORATORY Eosinophils Abs 0.2 0.0 - 0.4 [facility] x10(3)/[facility] LABORATORY Basophils % 0.5 % [facility] LABORATORY Basophils Abs 0.1 0.0 - 0.1 [facility] x10(3)/[facility] LABORATORY Immature Gran % 12.20 % [facility] LABORATORY Comment: Immature granulocytes(IG's)percentage an d absolute count will include metamyelocytes, myelocytes, and promyelo cytes. Blood smears from CBCs yielding IG's will be scanned manually for concor dance. If this scan disagrees with the automated IG or if promyelocytes are not ed, a manual differential will be performed. Gemini Gran Abs 1.48 (H) 0.00 - 0.04 x10(3)/[facility] LABORATORY Specimen Anatomical Collection Method Collection Time Receive d Time (Source) Location / / Volume Laterality Blood 02/08/2022 6:00 PM 6:21 EDT PM EDT Resulting Agency Comment Spec In Lab Rogers Solano APRN HEMATOLOGY ORDERABLES Performing Organization Address City/State/[place] [address] (ABNORMAL) Hemogram (02/08/2022 6:00 PM EDT) [facility] gist Method Time Signature WBC 12.1 (H) 4.0 - 9.5 [facility] x10(3)/[facility] LABORATORY RBC 2.57 (L) 4.58 - [facility] 5.54 [facility] x10(6)/[facility] LABORATORY Hemoglobin 7.5 (L) 13.7 - [facility] 16.5 g/dL [facility] LABORATORY Hematocrit 21.6 (L) 40.5 - [facility] 48.5 % [facility] LABORATORY MCV 84.0 82.9 - [facility] 93.1 fL [facility] LABORATORY MCH 29.2 27.5 - [facility] 32.1 pg [facility] LABORATORY MCHC 34.7 32.0 - [facility] 35.7 g/dL [facility] LABORATORY Platelets 80 (L) 145 - 357 [facility] HOSPITAL x10(3)/[facility] LABORATORY RDWSD 48.9 (H) 36.0 - [facility] 45.0 [facility] RDWCV 17.9 (H) 11.4 - [facility] 13.8 % [facility] LABORATORY MPV 10.1 7.6 - 12.9 [facility] nRBC % Auto 0.2 % [facility] nRBC Abs Auto 0.020 (H) 0.000 - [facility] 0.000 [facility] x10(3)/[facility] LABORATORY Specimen Anatomical Collection Method Collection Time Receive d Time (Source) Location / / Volume Laterality Blood 02/08/2022 6:00 PM 6:21 EDT PM EDT Resulting Agency Comment Spec In Lab Rogers Solano APRN HEMATOLOGY ORDERABLES Performing Organization Address City/State/[place] [address] (ABNORMAL) Blood Gas Arterial (NLH) (02/08/2022 6:00 PM EDT) Analysis Performed At Patho logist Time Signature pH Art 7.46 (H) 7.35 - [facility] 7.45 [facility] LABORATORY pCO2 Art 32 (L) 35 - 45 [facility] LABORATORY pO2 Art 89 85 - 104 [facility] LABORATORY HCO3 Art 22.4 20.0 - [facility] 26.0 [facility] mmol/L [facility] LABORATORY BE Art -1.4 -3.0 - 3.0 [facility] mmol/L [facility] LABORATORY Hgb Blood Gas 8.0 (L) 13.7 - [facility] 16.5 g/dL [facility] LABORATORY O2HB Art 95.8 94.0 - [facility] 97.0 % [facility] LABORATORY COHB Art 0.8 % [facility] LABORATORY Comment: Nonsmokers: ??0.5-1.5% COHB Smokers: ??Variable, but usually less th an 10% Toxic: 20 - 30% COHB Lethal: ??Greater than 60% COHB METHB Art 0.0 <=1.5 % [facility] LABORATORY Na Whole Blood 124 (L) 135 - 145 mmol/L [facility] LABORATORY K Whole Blood 4.7 3.5 - 5.0 mmol/L [facility] LABORATORY Comment: Please note: ??Patients with WBC >100,00 0 may have falsely elevated Potassium levels. ??Contact the Clinical Chemistry Laboratory if there are any questions. ICa Whole Blood 1.21 1.15 - 1.33 mmol/L [facility] LABORATORY Comment: Note: ??Total bilirubin higher than 20 m g/dL may lead to falsely low ionized calcium. CL Whole Blood 99 98 - 107 mmol/L [facility] LABORATORY Gluc Whole Bld 84 65 - 199 mg/dL [facility] LABORATORY Comment: Diabetes: >=200 mg/dL plus symp toms. Lactate WB 1.2 0.5 - 2.2 mmol/L [facility] LABORATORY Specimen Anatomical Collection Method Collection Time Receive d Time (Source) Location / / Volume Laterality Blood Arterial Draw / 02/08/2022 6:00 PM 2021 6:18 Unknown EDT PM EDT Resulting Agency Comment Spec In Lab Kaitlyn Rock MD CHEMISTRY ORDERABLES Performing Organization Address City/State/ZIP [place] [address] (ABNORMAL) Sodium (02/08/2022 6:00 PM EDT) P athologist Signature Sodium 129 (L) 135 - 145 [facility] mmol/L [facility] LABORATORY Specimen Anatomical Collection Method Collection Time Receive d Time (Source) Location / / Volume Laterality Blood 02/08/2022 6:00 PM 6:21 EDT PM EDT Resulting Agency Comment Spec In Lab Parrish Betancourt MD CHEMISTRY ORDERABLES Performing Organization Address City/State/ZIP Code Phon e Number [address] POCT Glucose (02/08/2022 5:56 PM EDT) P athologist Signature POC Glucose 92 65 - 199 [facility] mg/dL [facility] LABORATORY Comment: Supplemental ranges: <140 mg/dL before meals <180 mg/dL all other times of the day Specimen Anatomical Collection Method Collection Time Receive d Time (Source) Location / / Volume Laterality Blood 02/08/2022 5:56 PM 5:56 EDT PM EDT Parrish Betancourt MD POINT OF CARE TEST ORDERABLE S Performing Organization Address City/[facility]/ZIP Code [place] [address] Anaerobic Culture (02/08/2022 4:13 PM EDT) [facility] Method Time Signature Anaerobic No anaerobic [facility] Culture organisms [facility] LABORATORY Specimen Anatomical Collection Method Collection Time Receive d Time (Source) Location / / Volume Laterality Deep Wound STRUCTURE OF LEFT 02/08/2022 4:13 PM 01/29 4:33 THIGH / Unknown EDT PM EDT Comment: Left thigh #2 Resulting Agency Comment Spec In Lab Jeanette Chatterjee MD MICROBIOLOGY - GENERAL ORDER JT Performing Organization Address City/[facility]/ZIP [place] [address] (ABNORMAL) Abscess/Wound Aspirate Culture (02/08/2022 4:13 PM EDT) Wingu Method Time Signature Abscess/Wound Many Pseudomonas aeruginosa JOSH Aspirate Many Serratia marcescens [facility] ([facility] LABORATORY Gram Stain Many Neutrophils seen JOSH Many Gram Negative Rods seen [facility] ([facility] LABORATORY Organism Pseudomonas JOSH aeruginosa (A) [facility] LABORATORY Organism Serratia JOSH marcescens (A) [facility] LABORATORY Organism Gram Negative JOSH Rods (A) [facility] LABORATORY Specimen Anatomical Collection Method [...] Organization Address City/State/ZIP Code Phon e Number [facility] [place] [address] Anaerobic Culture (02/08/2022 4:13 PM EDT) [employer] Method Time Signature Anaerobic No anaerobic [facility] Culture organisms [facility] LABORATORY Specimen Anatomical Collection Method Collection Time Receive d Time (Source) Location / / Volume Laterality Deep Wound STRUCTURE OF LEFT 02/08/2022 4:13 PM 01/29 4:32 THIGH / Unknown EDT PM EDT Comment: Left thigh #1 Resulting Agency Comment Spec In Lab Jeanette Chatterjee MD MICROBIOLOGY - GENERAL ORDER JT Performing Organization Address City/State/ZIP [place] [address] (ABNORMAL) Abscess/Wound Aspirate Culture (02/08/2022 4:13 PM EDT) Component Value Ref Test Analysis Performed At [facility] gist Range Method Time Signature Abscess/Woun Many Pseudomonas aeruginosa JOSH d Aspirate Many Serratia marcescens [facility] Culture Susceptibilities previously reported [facility] LABORATORY Gram Stain Many Neutrophils seen JOSH Moderate Gram Negative Rods seen [facility] LABORATORY Organism Pseudomonas JOSH aeruginosa (A) [facility] LABORATORY Organism Serratia marcescens JOSH (A) [facility] LABORATORY Specimen Anatomical Collection Method Collection Time Receive d Time (Source) Location / / Volume Laterality Deep Wound STRUCTURE OF LEFT 02/08/2022 4:13 PM 01/29 4:32 THIGH / Unknown EDT PM EDT Comment: Left thigh #1 Resulting Agency Comment Spec In Lab Jeanette Chatterjee MD MICROBIOLOGY - GENERAL ORDER JT Performing Organization Address City/State/ZIP Code Phon e Number [address] POCT Glucose (02/08/2022 12:09 PM EDT) athologist Signature POC Glucose 126 65 - 199 [facility] mg/dL [facility] LABORATORY Comment: Supplemental ranges: <140 mg/dL before meals <180 mg/dL all other times of the day Specimen Anatomical Collection Method Collection Time Receive d Time (Source) Location / / Volume Laterality Blood 02/08/2022 12:09 02/08/2022 PM EDT 12:09 PM EDT Parrish Betancourt MD POINT OF CARE TEST ORDERABLE S Performing Organization Address City/State/ZIP Code Phon e Number [address] POCT Glucose (02/08/2022 12:09 PM EDT) P athologist Signature POC Glucose 100 65 - 199 [facility] mg/dL [facility] LABORATORY Comment: Supplemental ranges: <140 mg/dL before meals <180 mg/dL all other times of the day Specimen Anatomical Collection Method Collection Time Receive d Time (Source) Location / / Volume Laterality Blood 02/08/2022 12:09 02/08/2022 PM EDT 12:09 PM EDT Parrish Betancourt MD POINT OF CARE TEST ORDERABLE S Performing Organization Address City/State/[place] [address] (ABNORMAL) Blood Gas Arterial (NLH) (02/08/2022 12:00 PM EDT) Analysis Performed At Patho logist Time Signature pH Art 7.47 (H) 7.35 - [facility] 7.45 [facility] LABORATORY pCO2 Art 32 (L) 35 - 45 [facility] mmHg [facility] LABORATORY pO2 Art 129 (H) 85 - 104 [facility] LABORATORY HCO3 Art 22.9 20.0 - [facility] 26.0 [facility] mmol/[facility] LABORATORY BE Art -0.7 -3.0 - 3.0 [facility] mmol/L [facility] LABORATORY Hgb Blood Gas 8.1 (L) 13.7 - [facility] 16.5 g/dL [facility] LABORATORY O2HB Art 97.5 (H) 94.0 - [facility] 97.0 % [facility] LABORATORY COHB Art 0.9 % [facility] LABORATORY Comment: Nonsmokers: ??0.5-1.5% COHB Smokers: ??Variable, but usually less th an 10% Toxic: 20 - 30% COHB Lethal: ??Greater than 60% COHB METHB Art 0.0 <=1.5 % [facility] LABORATORY Na Whole Blood 123 (L) 135 - 145 mmol/L [facility] LABORATORY K Whole Blood 4.7 3.5 - 5.0 mmol/L [facility] LABORATORY Comment: Please note: ??Patients with WBC >100,00 0 may have falsely elevated Potassium levels. ??Contact the Clinical Chemistry Laboratory if there are any questions. ICa Whole Blood 1.26 1.15 - 1.33 mmol/L [facility] LABORATORY Comment: Note: ??Total bilirubin higher than 20 m g/dL may lead to falsely low ionized calcium. CL Whole Blood 98 98 - 107 mmol/L [facility] LABORATORY Gluc Whole Bld 92 65 - 199 mg/dL [facility] LABORATORY Comment: Diabetes: >=200 mg/dL plus symp toms. Lactate WB 0.9 0.5 - 2.2 mmol/L [facility] LABORATORY Specimen Anatomical Collection Method Collection Time Receive d Time (Source) Location / / Volume Laterality Blood Arterial Draw / 02/08/2022 12:00 02/09/20 22 Unknown PM EDT 12:21 PM EDT Resulting Agency Comment Spec In Lab Angelina Reynoso MD CHEMISTRY ORDERABLES Performing Organization Address City/[facility]/ZIP Code [place] [address] (ABNORMAL) Sodium (02/08/2022 12:00 PM EDT) P athologist Signature Sodium 127 (L) 135 - 145 [facility] mmol/L [facility] LABORATORY Specimen Anatomical Collection Method Collection Time Receive d Time (Source) Location / / Volume Laterality Blood 02/08/2022 12:00 02/08/2022 PM EDT 12:23 PM EDT Resulting Agency Comment Spec In Lab Parrish Betancourt MD CHEMISTRY ORDERABLES Performing Organization Address City/[facility]/ZIP Code [place] [address] (ABNORMAL) Calcium Ionized Whole Blood, HONORIO (02/08/2022 11:00 AM EDT) Analysis Performed At Patho logist Time Signature pH Honorio 7.46 (H) 7.32 - [facility] 7.42 [facility] LABORATORY ICa Whole 1.26 1.15 - [facility] Blood 1.33 [facility] mmol/[facility] LABORATORY Comment: Note: ??Total bilirubin higher than 20 m g/dL may lead to falsely low ionized calcium. Specimen Anatomical Collection Method Collection Time Receive d Time (Source) Location / / Volume Laterality Blood ARTERIAL LINE / 02/08/2022 11:00 02/09/20 22 Unknown AM EDT 11:09 AM EDT Resulting Agency Comment Spec In Lab Parrish Betancourt MD CHEMISTRY ORDERABLES Performing Organization Address City/[facility]/ZIP Code [place] [address] POCT Glucose (02/08/2022 9:56 AM EDT) athologist Signature POC Glucose 96 65 - 199 [facility] mg/dL [facility] LABORATORY Comment: Supplemental ranges: <140 mg/dL before meals <180 mg/dL all other times of the day Specimen Anatomical Collection Method Collection Time Receive d Time (Source) Location / / Volume Laterality Blood 02/08/2022 9:56 AM 9:56 EDT AM EDT Parrish Betancourt MD POINT OF CARE TEST ORDERABLE S Performing Organization Address City/State/ZIP [place] [address] (ABNORMAL) BLOOD GAS 2 ARTERIAL (02/08/2022 8:15 AM EDT) athologist Signature pH Art 7.44 7.35 - [facility] 7.45 [facility] LABORATORY pCO2 Art 36 35 - 45 [facility] mmHg [facility] LABORATORY pO2 Art 108 (H) 85 - 104 [facility] LABORATORY HCO3 Art 23.8 20.0 - [facility] 26.0 [facility] mmol/L [facility] LABORATORY BE Art -0.3 -3.0 - 3.0 [facility] mmol/L [facility] LABORATORY Hgb Blood Gas 7.8 (L) 13.7 - [facility] 16.5 g/dL [facility] LABORATORY O2HB Art 95.7 94.0 - [facility] 97.0 % [facility] LABORATORY COHB Art 0.1 % [facility] LABORATORY Comment: Nonsmokers: 0.5-1.5% COHB Smokers: Variable, but usually less than 10% Toxic: 20-30% COHB Lethal: Greater than 60% COHB METHB Art 1.3 <=1.5 % [facility] LABORATORY Na Whole Blood 122 (L) 135 - 145 mmol/L [facility] LABORATORY K Whole Blood 4.6 3.5 - 5.0 mmol/L [facility] LABORATORY Comment: Please note: Patients with WBC >100,000 may have falsely elevated Potassium levels. Contact the Clinical Chemistry L aboratory if there are any questions. ICa Whole Blood 1.27 1.15 - 1.33 mmol/L [facility] LABORATORY Comment: Note: ??Total bilirubin higher than 20 m g/dL may lead to falsely low ionized calcium. CL Whole Blood 98 98 - 107 mmol/L [facility] LABORATORY Gluc Whole Bld 92 65 - 199 mg/dL [facility] LABORATORY Comment: Diabetes: >=200 mg/dL plus symp toms. Lactate WB 0.9 0.5 - 2.2 mmol/L [facility] LABORATORY FIO2 Art 21 % [facility] LABORATORY PF Ratio Art 514 [facility] LABORATORY Specimen Anatomical Collection Method Collection Time Receive d Time (Source) Location / / Volume Laterality Blood 02/08/2022 8:15 AM 2 8:15 EDT AM EDT Jayme Armstrong MD CHEMISTRY ORDERABLES Performing Organization Address City/[facility]/ZIP Code Phon e Number [address] POCT Glucose (02/08/2022 7:42 AM EDT) P athologist Signature POC Glucose 98 65 - 199 [facility] mg/dL [facility] LABORATORY Comment: Supplemental ranges: <140 mg/dL before meals <180 mg/dL all other times of the day Specimen Anatomical Collection Method Collection Time Receive d Time (Source) Location / / Volume Laterality Blood 02/08/2022 7:42 AM 2 7:42 EDT AM EDT Jayme Armstrong MD POINT OF CARE TEST ORDERABLE S Performing Organization Address City/State/ZIP Code Phon e Number [address] Phosphorus (02/08/2022 5:57 AM EDT) P athologist Signature Phosphorus 3.9 2.5 - 4.5 [facility] mg/dL [facility] LABORATORY Specimen Anatomical Collection Method Collection Time Receive d Time (Source) Location / / Volume Laterality Blood 02/08/2022 5:57 AM 2 5:58 EDT AM EDT Resulting Agency Comment Spec In Lab Gela Novak MD CHEMISTRY ORDERABLES Performing Organization Address City/State/ZIP Code Phon e Number [address] Magnesium (02/08/2022 5:57 AM EDT) athologist Signature Magnesium 0.91 0.69 - 1.07 [facility] mmol/L [facility] LABORATORY Specimen Anatomical Collection Method Collection Time Receive d Time (Source) Location / / Volume Laterality Blood 02/08/2022 5:57 AM 2 5:58 EDT AM EDT Resulting Agency Comment Spec In Lab Gela Novak MD CHEMISTRY ORDERABLES Performing Organization Address City/[facility] [place] [address] (ABNORMAL) Basic Metabolic Panel (non-fasting) (02/08/2022 5:57 AM EDT) athologist Signature Glucose Lvl 92 65 - 199 [facility] mg/dL [facility] LABORATORY Comment: Diabetes: >=200 mg/dL plus symp toms BUN 29 (H) 10 - 20 mg/dL [facility] LABORATORY Creatinine 2.94 (H) 0.80 - 1.50 mg/dL [facility] LABORATORY Comment: result rechecked-red Sodium 126 (L) 135 - 145 mmol/L [facility] LABORATORY Potassium 4.9 3.5 - 5.0 mmol/L [facility] LABORATORY Comment: Please note: ??Patients with WBC >100,00 0 may have falsely elevated Potassium levels. ??For accurate Potassium quantif ication in these patients send serum separator tube (gold top) for subsequent determinations. ??Contact the Clinical Chemistry Laboratory if there are any qu estions. Chloride 97 (L) 98 - 107 mmol/L [facility] LABORATORY CO2 22 22 - 31 mmol/L [facility] LABORATORY Anion Gap 7 5 - 15 mmol/L [facility] LABORATORY Calcium 8.5 8.5 - 10.5 mg/dL [facility] K [facility] LABORATORY Comment: result rechecked-red Estimated GFR 28 (L) >=60 mL/min/1.73 m?? [facility] LABORATORY Comment: This patient's estimated [...] Organization Address City/State/ZIP [place] [address] (ABNORMAL) BLOOD GAS 2 ARTERIAL (02/08/2022 5:54 AM EDT) Analysis Performed At Patho logist Time Signature pH Art 7.47 (H) 7.35 - [facility] 7.45 [facility] LABORATORY pCO2 Art 30 (L) 35 - 45 [facility] mmHg [facility] LABORATORY pO2 Art 87 85 - 104 [facility] LABORATORY HCO3 Art 21.5 20.0 - [facility] 26.0 [facility] mmol/L [facility] LABORATORY BE Art -2.1 -3.0 - 3.0 [facility] mmol/L [facility] LABORATORY Hgb Blood Gas 7.7 (L) 13.7 - [facility] 16.5 g/dL [facility] LABORATORY O2HB Art 94.2 94.0 - [facility] 97.0 % [facility] LABORATORY COHB Art 0.3 % [facility] LABORATORY Comment: Nonsmokers: 0.5-1.5% COHB Smokers: Variable, but usually less than 10% Toxic: 20-30% COHB Lethal: Greater than 60% COHB METHB Art 1.0 <=1.5 % [facility] LABORATORY Na Whole Blood 122 (L) 135 - 145 mmol/L [facility] LABORATORY K Whole Blood 4.8 3.5 - 5.0 mmol/L [facility] LABORATORY Comment: Please note: Patients with WBC >100,000 may have falsely elevated Potassium levels. Contact the Clinical Chemistry L aboratory if there are any questions. ICa Whole Blood 1.28 1.15 - 1.33 mmol/L [facility] LABORATORY Comment: Note: ??Total bilirubin higher than 20 m g/dL may lead to falsely low ionized calcium. CL Whole Blood 98 98 - 107 mmol/L [facility] LABORATORY Gluc Whole Bld 87 65 - 199 mg/dL [facility] LABORATORY Comment: Diabetes: >=200 mg/dL plus symp toms. Lactate WB 1.1 0.5 - 2.2 mmol/L [facility] LABORATORY FIO2 Art 21 % [facility] LABORATORY PF Ratio Art 414 [facility] LABORATORY Temp Art 37.2 Celsius [facility] LABORATORY Specimen Anatomical Collection Method Collection Time Receive d Time (Source) Location / / Volume Laterality Blood 02/08/2022 5:54 AM 5:54 EDT AM EDT Jayme Armstrong MD CHEMISTRY ORDERABLES Performing Organization Address City/State/[place] [address] Scan, Peripheral Blood (02/08/2022 1:00 AM EDT) Patholo gist Method Time Signature Plat Estimate Decreased [facility] LABORATORY RBC Morphology Abnormal [facility] LABORATORY Polychromasia Present >5/HPF [facility] LABORATORY Ovalocytes 1-5 /HPF [facility] LABORATORY Martin Cells 1-5 /HPF [facility] LABORATORY Toxic Granulation Present [facility] LABORATORY Specimen Anatomical Collection Method Collection Time Receive d Time (Source) Location / / Volume Laterality Blood 02/08/2022 1:00 AM 2 1:20 EDT AM EDT Resulting Agency Comment Spec In Lab Danielle Ramirez MD HEMATOLOGY ORDERABLES Performing Organization Address City/State/[place] [address] (ABNORMAL) Differential, Automated (02/08/2022 1:00 AM EDT) [employer] Method Time Signature Neutrophils % 67.2 % [facility] LABORATORY Neutr Abs (ANC) 12.53 (H) 1.70 - [facility] 6.10 [facility] x10(3)/[facility] LABORATORY Lymphocytes % 8.1 % [facility] LABORATORY Lymphocytes Abs 1.5 0.9 - 3.2 [facility] x10(3)/[facility] LABORATORY Monocytes % 13.3 % [facility] LABORATORY Monocyte Abs 2.5 (H) 0.3 - 0.9 [facility] x10(3)/[facility] LABORATORY Eosinophils % 1.2 % [facility] LABORATORY Eosinophils Abs 0.2 0.0 - 0.4 [facility] x10(3)/[facility] LABORATORY Basophils % 0.5 % [facility] LABORATORY Basophils Abs 0.1 0.0 - 0.1 [facility] x10(3)/[facility] LABORATORY Immature Gran % 9.70 % [facility] LABORATORY Comment: Immature granulocytes(IG's)percentage an d absolute count will include metamyelocytes, myelocytes, and promyelo cytes. Blood smears from CBCs yielding IG's will be scanned manually for concor dance. If this scan disagrees with the automated IG or if promyelocytes are not ed, a manual differential will be performed. Gemini Gran Abs 1.81 (H) 0.00 - 0.04 x10(3)/[facility] LABORATORY Specimen Anatomical Collection Method Collection Time Receive d Time (Source) Location / / Volume Laterality Blood 02/08/2022 1:00 AM 2 1:20 EDT AM EDT Resulting Agency Comment Spec In Lab Danielle Ramirez MD HEMATOLOGY ORDERABLES Performing Organization Address City/State/ZIP Code Phon e Number [address] (ABNORMAL) Hemogram (02/08/2022 1:00 AM EDT) [facility] gist Method Time Signature WBC 18.6 (H) 4.0 - 9.5 [facility] x[facility] LABORATORY RBC 2.51 (L) 4.58 - [facility] MANDO 5.54 [facility] x10(6)/[facility] LABORATORY Hemoglobin 7.3 (L) 13.7 - [facility] 16.5 g/dL [facility] LABORATORY Hematocrit 20.7 (L) 40.5 - [facility] 48.5 % [facility] LABORATORY MCV 82.5 (L) 82.9 - [facility] 93.1 [facility] LABORATORY MCH 29.1 27.5 - [facility] 32.1 pg [facility] LABORATORY MCHC 35.3 32.0 - [facility] 35.7 g/dL [facility] LABORATORY Platelets 97 (L) 145 - 357 [facility] x10(3)/[facility] LABORATORY RDWSD 42.7 36.0 - [facility] 45.0 [facility] LABORATORY RDWCV 15.6 (H) 11.4 - [facility] 13.8 % [facility] LABORATORY MPV 9.7 7.6 - 12.9 [facility] LABORATORY nRBC % Auto 0.5 % [facility] LABORATORY nRBC Abs Auto 0.100 (H) 0.000 - [facility] 0.000 [facility] x10(3)/[facility] LABORATORY Specimen Anatomical Collection Method Collection Time Receive d Time (Source) Location / / Volume Laterality Blood 02/08/2022 1:00 AM 2 1:20 EDT AM EDT Resulting Agency Comment Spec In Lab Danielle Ramirez MD HEMATOLOGY ORDERABLES Performing Organization Address City/[facility]/ZIP [place] [address] (ABNORMAL) Fibrinogen (02/08/2022 1:00 AM EDT) athologist Signature Fibrinogen 423 (H) 200 - 393 [facility] mg/dL [facility] LABORATORY Comment: A fibrinogen level >100 mg/dL is adequat e for hemostasis in most patients without underlying bleeding disorders. Specimen Anatomical Collection Method Collection Time Receive d Time (Source) Location / / Volume Laterality Blood 02/08/2022 1:00 AM 2 1:20 EDT AM EDT Resulting Agency Comment Spec In Lab Jayme Armstrong MD HEMATOLOGY ORDERABLES Performing Organization Address City/[facility]/ZIP [facility] Phon e Number [address] APTT (02/08/2022 1:00 AM EDT) athologist Signature PTT 25 25 - 37 sec [facility] LABORATORY Comment: The PTT is [...] Armstrong MD HEMATOLOGY ORDERABLES Performing Organization Address City/[facility] [place] [address] Prothrombin Time (02/08/2022 1:00 AM EDT) P athologist Signature PT 12.2 9.4 - 12.5 [facility] LABORATORY INR 1.1 [facility] LABORATORY Comment: An INR <2.0 [...] Organization Address City/State/[place] [address] (ABNORMAL) Blood Gas Arterial (NLH) (02/08/2022 12:01 AM EDT) Analysis Performed At Patho logist Time Signature pH Art 7.47 (H) 7.35 - [facility] 7.45 [facility] LABORATORY pCO2 Art 32 (L) 35 - 45 [facility] mmHg [facility] LABORATORY pO2 Art 87 85 - 104 [facility] LABORATORY HCO3 Art 22.6 20.0 - [facility] 26.0 [facility] mmol/L [facility] LABORATORY BE Art -1.1 -3.0 - 3.0 [facility] mmol/L [facility] LABORATORY Hgb Blood Gas 7.7 (L) 13.7 - [facility] 16.5 g/dL [facility] O2HB Art 95.4 94.0 - [facility] 97.0 % [facility] LABORATORY COHB Art 1.0 % [facility] LABORATORY Comment: Nonsmokers: ??0.5-1.5% COHB Smokers: ??Variable, but usually less th an 10% Toxic: 20 - 30% COHB Lethal: ??Greater than 60% COHB METHB Art 0.1 <=1.5 % [facility] LABORATORY Na Whole Blood 122 (L) 135 - 145 mmol/L [facility] LABORATORY K Whole Blood 4.6 3.5 - 5.0 mmol/L [facility] LABORATORY Comment: Please note: ??Patients with WBC >100,00 0 may have falsely elevated Potassium levels. ??Contact the Clinical Chemistry Laboratory if there are any questions. ICa Whole Blood 1.24 1.15 - 1.33 mmol/L [facility] LABORATORY Comment: Note: ??Total bilirubin higher than 20 m g/dL may lead to falsely low ionized calcium. CL Whole Blood 99 98 - 107 mmol/L [facility] LABORATORY Gluc Whole Bld 89 65 - 199 mg/dL [facility] LABORATORY Comment: Diabetes: >=200 mg/dL plus symp toms. Lactate WB 1.1 0.5 - 2.2 mmol/L [facility] LABORATORY Specimen Anatomical Collection Method Collection Time Receive d Time (Source) Location / / Volume Laterality Blood Arterial Draw / 02/08/2022 12:01 02/09/20 22 Unknown AM EDT 12:16 AM EDT Resulting Agency Comment Spec In Lab Angelina Reynoso MD CHEMISTRY ORDERABLES Performing Organization Address City/State/ZIP Code Phon e Number [address] (ABNORMAL) Sodium (02/08/2022 12:01 AM EDT) P athologist Signature Sodium 125 (L) 135 - 145 [facility] mmol/L [facility] LABORATORY Specimen Anatomical Collection Method Collection Time Receive d Time (Source) Location / / Volume Laterality Blood 02/08/2022 12:01 02/08/2022 AM EDT 12:15 AM EDT Resulting Agency Comment Spec In Lab Parrish Betancourt MD CHEMISTRY ORDERABLES Performing Organization Address City/[facility]/ZIP Code Phon e Number [address] Prepare RBC (02/07/2022 7:40 PM EDT) P athologist Signature Dispensed? Yes [facility] LABORATORY Specimen Anatomical Collection Method Collection Time Receive d Time (Source) Location / / Volume Laterality Blood 02/07/2022 7:40 PM 7:39 EDT PM EDT Jayme Armstrong MD BLOOD BANK ORDERABLES Performing Organization Address City/[facility]/ZIP [place] [address] (ABNORMAL) BLOOD GAS 2 ARTERIAL (02/07/2022 6:08 PM EDT) Analysis Performed At Patho logist Time Signature pH Art 7.50 (H) 7.35 - [facility] 7.45 [facility] LABORATORY pCO2 Art 27 (L) 35 - 45 [facility] LABORATORY pO2 Art 81 (L) 85 - 104 [facility] LABORATORY HCO3 Art 20.8 20.0 - [facility] 26.0 [facility] mmol/[facility] LABORATORY BE Art -2.4 -3.0 - 3.0 [facility] mmol/L [facility] LABORATORY Hgb Blood Gas 8.5 (L) 13.7 - [facility] 16.5 g/dL [facility] O2HB Art 93.9 (L) 94.0 - [facility] 97.0 % [facility] LABORATORY COHB Art 0.3 % [facility] LABORATORY Comment: Nonsmokers: 0.5-1.5% COHB Smokers: Variable, but usually less than 10% Toxic: 20-30% COHB Lethal: Greater than 60% COHB METHB Art 1.0 <=1.5 % [facility] LABORATORY Na Whole Blood 119 (Critical) 135 - 145 mmol/L [facility] LABORATORY Comment: Noted by chemical instrumentation officer. K Whole Blood 5.1 (H) 3.5 - 5.0 mmol/L [facility] LABORATORY Comment: Please note: Patients with WBC >100,000 may have falsely elevated Potassium levels. Contact the Clinical Chemistry L aboratory if there are any questions. ICa Whole Blood 1.18 1.15 - 1.33 mmol/L [facility] LABORATORY Comment: Note: ??Total bilirubin higher than 20 m g/dL may lead to falsely low ionized calcium. CL Whole Blood 96 (L) 98 - 107 mmol/L [facility] LABORATORY Gluc Whole Bld 100 65 - 199 mg/dL [facility] LABORATORY Comment: Diabetes: >=200 mg/dL plus symp toms. Lactate WB 1.4 0.5 - 2.2 mmol/L [facility] LABORATORY Flow Art 21.0 LPM [facility] LABORATORY Specimen Anatomical Collection Method Collection Time Receive d Time (Source) Location / / Volume Laterality Blood 02/07/2022 6:08 PM 6:08 EDT PM EDT Jayme Armstrong MD CHEMISTRY ORDERABLES Performing Organization Address City/[facility]/ZIP Code [place] [address] Scan, Peripheral Blood (02/07/2022 6:05 PM EDT) [employer] Method Time Signature Plat Estimate Decreased [facility] LABORATORY RBC Morphology Abnormal [facility] LABORATORY Polychromasia Present >5/HPF [facility] LABORATORY Martin Cells 1-5 /HPF [facility] LABORATORY Stippled RBCs Present >1/HPF [facility] LABORATORY Specimen Anatomical Collection Method Collection Time Receive d Time (Source) Location / / Volume Laterality Blood 02/07/2022 6:05 PM 6:10 EDT PM EDT Resulting Agency Comment Spec In Lab Rogers Solano APRN HEMATOLOGY ORDERABLES Performing Organization Address [facility]/ZIP Code [place] [address] (ABNORMAL) Differential, Automated (02/07/2022 6:05 PM EDT) [employer] Method Time Signature Neutrophils % 67.7 % [facility] LABORATORY Neutr Abs (ANC) 12.21 (H) 1.70 - [facility] 6.10 [facility] x10(3)/[facility] LABORATORY Lymphocytes % 7.1 % [facility] LABORATORY Lymphocytes Abs 1.3 0.9 - 3.2 [facility] x10(3)/[facility] LABORATORY Monocytes % 14.1 % [facility] LABORATORY Monocyte Abs 2.6 (H) 0.3 - 0.9 [facility] x10(3)/[facility] LABORATORY Eosinophils % 0.8 % [facility] LABORATORY Eosinophils Abs 0.1 0.0 - 0.4 [facility] x10(3)/[facility] LABORATORY Basophils % 0.4 % [facility] LABORATORY Basophils Abs 0.1 0.0 - 0.1 [facility] x10(3)/[facility] LABORATORY Immature Gran % 9.90 % [facility] LABORATORY Comment: Immature granulocytes(IG's)percentage an d absolute count will include metamyelocytes, myelocytes, and promyelo cytes. Blood smears from CBCs yielding IG's will be scanned manually for ny dannoe. If this scan disagrees with the automated IG or if promyelocytes are not ed, a manual differential will be performed. Gemini Gran Abs 1.79 (H) 0.00 - 0.04 x10(3)/[facility] LABORATORY Specimen Anatomical Collection Method Collection Time Receive d Time (Source) Location / / Volume Laterality Blood 02/07/2022 6:05 PM 6:10 EDT PM EDT Resulting Agency Comment Spec In Lab Rogers Solano APRN HEMATOLOGY ORDERABLES Performing Organization Address City/State/ZIP Code Phon e Number [place] [id number] HOSPITAL LABORATORY Drive (ABNORMAL) Hemogram (02/07/2022 6:05 PM EDT) [facility] gist Method Time Signature WBC 18.0 (H) 4.0 - 9.5 [facility] x10(3)/[facility] LABORATORY RBC 2.31 (L) 4.58 - [facility] 5[facility]54 [facility] x10(6)/[facility] LABORATORY Hemoglobin 6.8 (L) 13.7 - [facility] 16.5 g/dL [facility] LABORATORY Hematocrit 19.3 (L) 40.5 - [facility] 48.5 % [facility] LABORATORY MCV 83.5 82.9 - [facility] 93.1 [facility] LABORATORY MCH 29.4 27.5 - [facility] 32.1 pg [facility] LABORATORY MCHC 35.2 32.0 - [facility] 35.7 g/dL [facility] LABORATORY Platelets 85 (L) 145 - 357 [facility] x10(3)/[facility] LABORATORY RDWSD 42.5 36.0 - [facility] 45.0 [facility] LABORATORY RDWCV 14.7 (H) 11.4 - [facility] 13.8 % [facility] LABORATORY MPV 9.9 7.6 - 12.9 [facility] LABORATORY nRBC % Auto 0.8 % [facility] LABORATORY nRBC Abs Auto 0.150 (H) 0.000 - [facility] 0.000 [facility] x10(3)/[facility] LABORATORY Specimen Anatomical Collection Method Collection Time Receive d Time (Source) Location / / Volume Laterality Blood 02/07/2022 6:05 PM 2 6:10 EDT PM EDT Resulting Agency Comment Spec In Lab Rogers Solano APRN HEMATOLOGY ORDERABLES Performing Organization Address City/[facility]/ZIP Code Phon e Number [address] (ABNORMAL) Sodium (02/07/2022 6:05 PM EDT) P athologist Signature Sodium 125 (L) 135 - 145 [facility] mmol/L [facility] LABORATORY Specimen Anatomical Collection Method Collection Time Receive d Time (Source) Location / / Volume Laterality Blood 02/07/2022 6:05 PM 2 6:10 EDT PM EDT Resulting Agency Comment Spec In Lab Parrish Betancourt MD CHEMISTRY ORDERABLES Performing Organization Address City/[facility]/ZIP Code [place] [address] (ABNORMAL) Calcium Ionized Whole Blood, HONORIO (02/07/2022 4:30 PM EDT) Analysis Performed At Patho logist Time Signature pH Honorio 7.43 (H) 7.32 - [facility] 7.42 [facility] LABORATORY ICa Whole 1.15 1.15 - [facility] Blood 1.33 [facility] mmol/L [facility] LABORATORY Comment: Note: ??Total bilirubin higher than 20 m g/dL may lead to falsely low ionized calcium. Specimen Anatomical Collection Method Collection Time Receive d Time (Source) Location / / Volume Laterality Blood ARTERIAL LINE / 02/07/2022 4:30 PM 2021 4:38 Unknown EDT PM EDT Resulting Agency Comment Spec In Lab Parrish Betancourt MD CHEMISTRY ORDERABLES Performing Organization Address City/[facility]/ZIP Code Phon e Number [address] Transfuse RBC (02/07/2022 4:20 PM EDT) Rogers Solano KATERYNA NURSING TREATMENT ORDERABLES - BLOOD ADMIN Transfuse RBC (02/07/2022 4:20 PM EDT) Rogers Solano KATERYNA NURSING TREATMENT ORDERABLES - BLOOD ADMIN Prepare RBC (02/07/2022 1:30 PM EDT) P athologist Signature Dispensed? Yes [facility] LABORATORY Specimen Anatomical Collection Method Collection Time Receive d Time (Source) Location / / Volume Laterality Blood 02/07/2022 1:30 PM 1:29 EDT PM EDT Rogers Martinez Solano KATERYNA BLOOD BANK ORDERABLES Performing Organization Address City/State/[place] [address] XR Chest One View [...] who have questions please contact the health wound care center consultant that requested your imaging first. ? Narrative [...] ho have questions please contact the health wound care center consultant that requested your imaging first. Jayme Armstrong MD IMG DX ORDERABLES (ABNORMAL) BLOOD GAS 2 ARTERIAL (02/07/2022 1:04 PM EDT) Analysis Performed At Patho logist Time Signature pH Art 7.51 (H) 7.35 - [facility] 7.45 [facility] LABORATORY pCO2 Art 28 (L) 35 - 45 [facility] LABORATORY pO2 Art 78 (L) 85 - 104 [facility] LABORATORY HCO3 Art 22.0 20.0 - [facility] 26.0 [facility] mmol/L [facility] LABORATORY BE Art -1.0 -3.0 - 3.0 [facility] mmol/L [facility] LABORATORY Hgb Blood Gas 7.4 (L) 13.7 - [facility] 16.5 g/dL [facility] LABORATORY O2HB Art 93.3 (L) 94.0 - [facility] 97.0 % [facility] LABORATORY COHB Art 0.3 % [facility] LABORATORY Comment: Nonsmokers: 0.5-1.5% COHB Smokers: Variable, but usually less than 10% Toxic: 20-30% COHB Lethal: Greater than 60% COHB METHB Art 1.2 <=1.5 % [facility] LABORATORY Na Whole Blood 118 (Critical) 135 - 145 mmol/L [facility] LABORATORY Comment: Noted by chemical instrumentation officer. K Whole Blood 5.8 (H) 3.5 - 5.0 mmol/L [facility] LABORATORY Comment: Please note: Patients with WBC >100,000 may have falsely elevated Potassium levels. Contact the Clinical Chemistry L aboratory if there are any questions. ICa Whole Blood 1.08 (L) 1.15 - 1.33 mmol/L [facility] LABORATORY Comment: Note: ??Total bilirubin higher than 20 m g/dL may lead to falsely low ionized calcium. CL Whole Blood 94 (L) 98 - 107 mmol/L [facility] LABORATORY Gluc Whole Bld 104 65 - 199 mg/dL [facility] LABORATORY Comment: Diabetes: >=200 mg/dL plus symp toms. Lactate WB 1.2 0.5 - 2.2 mmol/L [facility] LABORATORY FIO2 Art 21 % [facility] LABORATORY PF Ratio Art 371 [facility] LABORATORY Specimen Anatomical Collection Method Collection Time Receive d Time (Source) Location / / Volume Laterality Blood 02/07/2022 1:04 PM 1:04 EDT PM EDT Jayme Armstrong MD CHEMISTRY ORDERABLES Performing Organization Address City/State/[place] [address] (ABNORMAL) Phosphorus (02/07/2022 1:00 PM EDT) athologist Signature Phosphorus 5.0 (H) 2.5 - 4.5 [facility] mg/dL [facility] LABORATORY Specimen Anatomical Collection Method Collection Time Receive d Time (Source) Location / / Volume Laterality Blood Venous Draw / 02/07/2022 1:00 PM 02/08/20 22 1:15 Unknown EDT PM EDT Resulting Agency Comment Spec In Lab Angelina Reynoso MD CHEMISTRY ORDERABLES Performing Organization Address City/[facility]/ZIP Code Phon e Number [address] Magnesium (02/07/2022 1:00 PM EDT) athologist [facility] Magnesium 0.87 0.69 - 1.07 [facility] mmol/L [facility] LABORATORY Specimen Anatomical Collection Method Collection Time Receive d Time (Source) Location / / Volume Laterality Blood Venous Draw / 02/07/2022 1:00 PM 02/08/20 22 1:15 Unknown EDT PM EDT Resulting Agency Comment Spec In Lab Angelina Reynoso MD CHEMISTRY ORDERABLES Performing Organization Address City/[facility]/ZIP Code Phon e Number [address] (ABNORMAL) Differential, Automated (02/07/2022 1:00 PM EDT) [facility] gist Method Time Signature Neutrophils % 67.1 % [facility] LABORATORY Neutr Abs (ANC) 13.59 (H) 1.70 - [facility] 6.10 [facility] x10(3)/[facility] L LABORATORY Lymphocytes % 6.8 % [facility] LABORATORY Lymphocytes Abs 1.4 0.9 - 3.2 [facility] x10(3)/[facility] LABORATORY Monocytes % 13.2 % [facility] LABORATORY Monocyte Abs 2.7 (H) 0.3 - 0.9 [facility] x10(3)/[facility] LABORATORY Eosinophils % 0.5 % [facility] LABORATORY Eosinophils Abs 0.1 0.0 - 0.4 [facility] x10(3)/[facility] LABORATORY Basophils % 0.5 % [facility] LABORATORY Basophils Abs 0.1 0.0 - 0.1 [facility] x10(3)/[facility] LABORATORY Immature Gran % 11.90 % [facility] LABORATORY Comment: Immature granulocytes(IG's)percentage an d absolute count will include metamyelocytes, myelocytes, and promyelo cytes. Blood smears from CBCs yielding IG's will be scanned manually for concor dance. If this scan disagrees with the automated IG or if promyelocytes are not ed, a manual differential will be performed. Gemini Gran Abs 2.40 (H) 0.00 - 0.04 x10(3)/[facility] LABORATORY Specimen Anatomical Collection Method Collection Time Receive d Time (Source) Location / / Volume Laterality Blood 02/07/2022 1:00 PM 1:09 EDT PM EDT Resulting Agency Comment Spec In Lab Batsheva Hill MD HEMATOLOGY ORDERABLES Performing Organization Address City/State/[place] [address] (ABNORMAL) Hemogram (02/07/2022 1:00 PM EDT) [facility] gist Method Time Signature WBC 20.2 (H) 4.0 - 9.5 [facility] x10(3)/[facility] LABORATORY RBC 2.25 (L) 4.58 - [facility] 5.54 [facility] x10(6)/[facility] LABORATORY Hemoglobin 6.6 (L) 13.7 - [facility] 16.5 g/dL [facility] LABORATORY Hematocrit 18.6 (L) 40.5 - [facility] 48.5 % [facility] LABORATORY MCV 82.7 (L) 82.9 - [facility] 93.1 [facility] LABORATORY MCH 29.3 27.5 - [facility] 32.1 pg [facility] LABORATORY MCHC 35.5 32.0 - [facility] 35.[facility] g/dL [facility] LABORATORY Platelets 112 (L) 145 - 357 [facility] x10(3)/[facility] LABORATORY RDWSD 42.7 36.0 - [facility] 45.0 [facility] LABORATORY RDWCV 14.9 (H) 11.4 - [facility] 13.8 % [facility] LABORATORY MPV 9.8 7.6 - 12.9 [facility] LABORATORY nRBC % Auto 0.9 % [facility] LABORATORY nRBC Abs Auto 0.190 (H) 0.000 - [facility] 0.000 [facility] x10(3)/[facility] LABORATORY Specimen Anatomical Collection Method Collection Time Receive d Time (Source) Location / / Volume Laterality Blood 02/07/2022 1:00 PM 2 1:09 EDT PM EDT Resulting Agency Comment Spec In Lab Batsheva Hill MD HEMATOLOGY ORDERABLES Performing Organization Address City/State/[place] [address] (ABNORMAL) Basic Metabolic Panel (non-fasting) (02/07/2022 1:00 PM EDT) athologist Signature Glucose Lvl 105 65 - 199 [facility] mg/dL [facility] LABORATORY Comment: Diabetes: >=200 mg/dL plus symp toms BUN 41 (H) 10 - 20 mg/dL [facility] LABORATORY Creatinine 3.92 (H) 0.80 - 1.50 mg/dL [facility] LABORATORY Sodium 123 (L) 135 - 145 mmol/L [facility] LABORATORY Potassium 6.0 (H) 3.5 - 5.0 mmol/L [facility] LABORATORY Comment: Please note: ??Patients with WBC >100,00 0 may have falsely elevated Potassium levels. ??For accurate Potassium quantif ication in these patients send serum separator tube (gold top) for subsequent determinations. ??Contact the Clinical Chemistry Laboratory if there are any qu estions. Chloride 94 (L) 98 - 107 mmol/L [facility] LABORATORY CO2 21 (L) 22 - 31 mmol/L [facility] LABORATORY Anion Gap 8 5 - 15 mmol/L [facility] LABORATORY Calcium 7.4 (L) 8.5 - 10.5 mg/dL [facility] LABORATORY Estimated GFR 20 (L) >=60 mL/min/1.73 m?? [facility] LABORATORY Comment: This patient's estimated [...] Organization Address City/State/ZIP Code Phon e Number [place] [phone] HOSPITAL LABORATORY Drive CENTRAL LINE (02/07/2022 12:52 [...] at time of insertion: I CU 4 [facility] Rogers Solano APRN Rogers Solano APRN PROCEDURE/MINOR SURGICAL ORD ERABLES POCT Glucose (02/07/2022 8:22 AM EDT) athologist Signature POC Glucose 130 65 - 199 [facility] mg/dL [facility] LABORATORY Comment: Supplemental ranges: <140 mg/dL before meals <180 mg/dL all other times of the day Specimen Anatomical Collection Method Collection Time Receive d Time (Source) Location / / Volume Laterality Blood 02/07/2022 8:22 AM 8:22 EDT AM EDT Jayme Armstrong MD POINT OF CARE TEST ORDERABLE S Performing Organization Address City/State/[place] [address] (ABNORMAL) BLOOD GAS 2 ARTERIAL (02/07/2022 8:16 AM EDT) Analysis Performed At Patho logist Time Signature pH Art 7.50 (H) 7.35 - [facility] 7.45 [facility] LABORATORY pCO2 Art 29 (L) 35 - 45 [facility] mmHg [facility] LABORATORY pO2 Art 76 (L) 85 - 104 [facility] LABORATORY HCO3 Art 21.8 20.0 - [facility] 26.0 [facility] mmol/L [facility] LABORATORY BE Art -1.4 -3.0 - 3.0 [facility] mmol/L [facility] LABORATORY Hgb Blood Gas 8.0 (L) 13.7 - [facility] 16.5 g/dL [facility] LABORATORY O2HB Art 92.9 (L) 94.0 - [facility] 97.0 % [facility] LABORATORY COHB Art 0.3 % [facility] LABORATORY Comment: Nonsmokers: 0.5-1.5% COHB Smokers: Variable, but usually less than 10% Toxic: 20-30% COHB Lethal: Greater than 60% COHB METHB Art 1.4 <=1.5 % [facility] LABORATORY Na Whole Blood 117 (Critical) 135 - 145 mmol/L [facility] LABORATORY Comment: Noted by chemical instrumentation officer. K Whole Blood 5.7 (H) 3.5 - 5.0 mmol/L [facility] LABORATORY Comment: Please note: Patients with WBC >100,000 may have falsely elevated Potassium levels. Contact the Clinical Chemistry L aboratory if there are any questions. ICa Whole Blood 1.11 (L) 1.15 - 1.33 mmol/L [facility] LABORATORY Comment: Note: ??Total bilirubin higher than 20 m g/dL may lead to falsely low ionized calcium. CL Whole Blood 94 (L) 98 - 107 mmol/L [facility] LABORATORY Gluc Whole Bld 116 65 - 199 mg/dL [facility] LABORATORY Comment: Diabetes: >=200 mg/dL plus symp toms. Lactate WB 1.3 0.5 - 2.2 mmol/L [facility] LABORATORY FIO2 Art 21 % [facility] LABORATORY PF Ratio Art 362 [facility] LABORATORY Specimen Anatomical Collection Method Collection Time Receive d Time (Source) Location / / Volume Laterality Blood 02/07/2022 8:16 AM 8:16 EDT AM EDT Jayme Armstrong MD CHEMISTRY ORDERABLES Performing Organization Address City/State/[place] [address] Scan, Peripheral Blood (02/07/2022 6:05 AM EDT) [employer] Method Time Signature Plat Estimate Decreased [facility] LABORATORY RBC Morphology Abnormal [facility] LABORATORY Microcytes 1-5 /HPF [facility] LABORATORY Polychromasia Present >5/HPF [facility] LABORATORY Ovalocytes 1-5 /HPF [facility] LABORATORY Martin Cells 1-5 /HPF [facility] LABORATORY Specimen Anatomical Collection Method Collection Time Receive d Time (Source) Location / / Volume Laterality Blood 02/07/2022 6:05 AM 6:11 EDT AM EDT Resulting Agency Comment Spec In Lab Collette ELLIS HEMATOLOGY ORDERABLES Performing Organization Address City/State/[place] [address] (ABNORMAL) Differential, Automated (02/07/2022 6:05 AM EDT) [employer] Method Time Signature Neutrophils % 64.3 % [facility] LABORATORY Neutr Abs (ANC) 15.67 (H) 1.70 - [facility] 6.10 [facility] x10(3)/[facility] LABORATORY Lymphocytes % 6.4 % [facility] LABORATORY Lymphocytes Abs 1.6 0.9 - 3.2 [facility] x10(3)/[facility] LABORATORY Monocytes % 13.7 % [facility] LABORATORY Monocyte Abs 3.3 (H) 0.3 - 0.9 [facility] x10(3)/[facility] LABORATORY Eosinophils % 0.5 % [facility] LABORATORY Eosinophils Abs 0.1 0.0 - 0.4 [facility] x10(3)/[facility] LABORATORY Basophils % 0.5 % [facility] LABORATORY Basophils Abs 0.1 0.0 - 0.1 [facility] x10(3)/[facility] LABORATORY Immature Gran % 14.60 % [facility] LABORATORY Comment: Immature granulocytes(IG's)percentage an d absolute count will include metamyelocytes, myelocytes, and promyelo cytes. Blood smears from CBCs yielding IG's will be scanned manually for concor dance. If this scan disagrees with the automated IG or if promyelocytes are not ed, a manual differential will be performed. Gemini Gran Abs 3.54 (H) 0.00 - 0.04 x10(3)/[facility] LABORATORY Specimen Anatomical Collection Method Collection Time Receive d Time (Source) Location / / Volume Laterality Blood 02/07/2022 6:05 AM 2 6:11 EDT AM EDT Resulting Agency Comment Spec In Lab Collette ELLIS HEMATOLOGY ORDERABLES Performing Organization Address City/State/[place] [address] (ABNORMAL) Hemogram (02/07/2022 6:05 AM EDT) [facility] gist Method Time Signature WBC 24.3 (H) 4.0 - 9.5 [facility] x10(3)/[facility] LABORATORY RBC 2.41 (L) 4.58 - [facility] 5.54 [facility] x10(6)/[facility] LABORATORY Hemoglobin 7.1 (L) 13.7 - [facility] 16.5 g/dL [facility] LABORATORY Hematocrit 19.7 (L) 40.5 - [facility] 48.5 % [facility] LABORATORY MCV 81.7 (L) 82.9 - [facility] 93.1 [facility] LABORATORY MCH 29.5 27.5 - [facility] 32.1 pg [facility] LABORATORY MCHC 36.0 (H) 32.0 - [facility] 35.7 g/dL [facility] LABORATORY Platelets 89 (L) 145 - 357 [facility] x10(3)/[facility] LABORATORY RDWSD 42.7 36.0 - [facility] 45.0 [facility] LABORATORY RDWCV 15.1 (H) 11.4 - [facility] 13.8 % [facility] LABORATORY MPV 9.8 7.6 - 12.9 [facility] LABORATORY nRBC % Auto 1.5 % [facility] LABORATORY nRBC Abs Auto 0.370 (H) 0.000 - [facility] 0.000 [facility] x10(3)/[facility] LABORATORY Specimen Anatomical Collection Method Collection Time Receive d Time (Source) Location / / Volume Laterality Blood 02/07/2022 6:05 AM 2 6:11 EDT AM EDT Resulting Agency Comment Spec In Lab Collette ELLIS HEMATOLOGY ORDERABLES Performing Organization Address City/[facility]/ZIP Code Phon e Number [address] (ABNORMAL) Sodium (02/07/2022 6:05 AM EDT) P athologist Signature Sodium 126 (L) 135 - 145 [facility] mmol/L [facility] LABORATORY Specimen Anatomical Collection Method Collection Time Receive d Time (Source) Location / / Volume Laterality Blood 02/07/2022 6:05 AM 2 6:11 EDT AM EDT Resulting Agency Comment Spec In Lab Parrish Betancourt MD CHEMISTRY ORDERABLES Performing Organization Address City/[facility]/ZIP Code [place] [address] Transfuse RBC (02/07/2022 5:36 AM EDT) Jayme Armstrong MD NURSING TREATMENT ORDERABLES - BLOOD ADMIN Transfuse RBC (02/07/2022 5:36 AM EDT) Jayme Armstrong MD NURSING TREATMENT ORDERABLES - BLOOD ADMIN Prepare RBC (02/07/2022 4:55 AM EDT) P athologist Signature Dispensed? Yes [facility] LABORATORY Specimen Anatomical Collection Method Collection Time Receive d Time (Source) Location / / Volume Laterality Blood 02/07/2022 4:55 AM 2 4:51 EDT AM EDT Jayme Armstrong MD BLOOD BANK ORDERABLES Performing Organization Address City/[facility]/ZIP [facility] [place] [address] (ABNORMAL) Calcium Ionized Whole Blood, HONORIO (02/07/2022 3:00 AM EDT) Analysis Performed At Patho logist Time Signature pH Honorio 7.45 (H) 7.32 - [facility] 7.42 [facility] LABORATORY ICa Whole 1.14 (L) 1.15 - [facility] Blood 1.33 [facility] mmol/[facility] LABORATORY Comment: Note: ??Total bilirubin higher than 20 m g/dL may lead to falsely low ionized calcium. Specimen Anatomical Collection Method Collection Time Receive d Time (Source) Location / / Volume Laterality Blood ARTERIAL LINE / 02/07/2022 3:00 AM 2021 3:11 Unknown EDT AM EDT Resulting Agency Comment Spec In Lab Angelina Reynoso MD CHEMISTRY ORDERABLES Performing Organization Address City/[facility]/ZIP Code [place] [address] Fibrinogen (02/07/2022 2:10 AM EDT) P athologist Signature Fibrinogen 362 200 - 393 [facility] mg/dL [facility] LABORATORY Comment: A fibrinogen level >100 mg/dL is adequat e for hemostasis in most patients without underlying bleeding disorders. Specimen Anatomical Collection Method Collection Time Receive d Time (Source) Location / / Volume Laterality Blood 02/07/2022 2:10 AM 2 2:19 EDT AM EDT Resulting Agency Comment Spec In Lab Collette ELLIS HEMATOLOGY ORDERABLES Performing Organization Address [facility]/ZIP Code Phon e Number [address] Prothrombin Time (02/07/2022 2:10 AM EDT) P athologist Signature PT 11.3 9.4 - 12.5 [facility] LABORATORY INR 1.0 [facility] LABORATORY Comment: An INR <2.0 [...] Collette ELLIS HEMATOLOGY ORDERABLES Performing Organization Address City/[facility]/[place] [address] (ABNORMAL) Platelet count (02/07/2022 2:10 AM EDT) P athologist Signature Platelets 128 (L) 145 - 357 [facility] x10(3)/[facility] LABORATORY Plat Immature 7.0 0.0 - 7.4 [facility] % % [facility] LABORATORY Comment: Limitation of the Immature Platelet Frac tion (IPF)-May be less reliable when the platelet count is less than 76i642/u L due to statistical imprecision. The IPF [...] in a decreased state of production. References: [employer] The Clinical Value of the Immature Platelet Fraction (IPF) in Cell Recovery Document Number 10-1143 12/2010 [employer] The Role of the Imm ature Platelet Fraction (IPF) in the Differential Diagnosis of Thrombocytopen ia, Document [id number] V05 P012/12 Specimen Anatomical Collection Method Collection Time Receive d Time (Source) Location / / Volume Laterality Blood 02/07/2022 2:10 AM 2 2:19 EDT AM EDT Resulting Agency Comment Spec In Lab Collette ELLIS HEMATOLOGY ORDERABLES Performing Organization Address City/State/[place] [address] (ABNORMAL) Hematocrit (02/07/2022 2:10 AM EDT) athologist Signature Hematocrit 19.8 (L) 40.5 - [facility] 48.5 % [facility] LABORATORY Specimen Anatomical Collection Method Collection Time Receive d Time (Source) Location / / Volume Laterality Blood 02/07/2022 2:10 AM 2 2:19 EDT AM EDT Resulting Agency Comment Spec In Lab Collette ELLIS HEMATOLOGY ORDERABLES Performing Organization Address City/State/ZIP [place] [address] (ABNORMAL) Hemoglobin (02/07/2022 2:10 AM EDT) P athologist Signature Hemoglobin 7.2 (L) 13.7 - 16.5 [facility] g/dL [facility] LABORATORY Specimen Anatomical Collection Method Collection Time Receive d Time (Source) Location / / Volume Laterality Blood 02/07/2022 2:10 AM 2 2:19 EDT AM EDT Resulting Agency Comment Spec In Lab Collette ELLIS HEMATOLOGY ORDERABLES Performing Organization Address City/[facility]/ZIP Code [place] [address] (ABNORMAL) BLOOD GAS 2 ARTERIAL (02/07/2022 12:52 AM EDT) Analysis Performed At Patho logist Time Signature pH Art 7.44 7.35 - [facility] 7.45 [facility] LABORATORY pCO2 Art 34 (L) 35 - 45 [facility] mmHg [facility] LABORATORY pO2 Art 81 (L) 85 - 104 [facility] mmHg [facility] LABORATORY HCO3 Art 22.4 20.0 - [facility] 26.0 [facility] mmol/L [facility] LABORATORY BE Art -1.7 -3.0 - 3.0 [facility] mmol/L [facility] LABORATORY Hgb Blood Gas 8.5 (L) 13.7 - [facility] 16.5 g/dL [facility] LABORATORY O2HB Art 93.4 (L) 94.0 - [facility] 97.0 % [facility] LABORATORY COHB Art 0.3 % [facility] LABORATORY Comment: Nonsmokers: 0.5-1.5% COHB Smokers: Variable, but usually less than 10% Toxic: 20-30% COHB Lethal: Greater than 60% COHB METHB Art 1.0 <=1.5 % [facility] LABORATORY Na Whole Blood 118 (Critical) 135 - 145 mmol/L [facility] LABORATORY Comment: Noted by chemical instrumentation officer. K Whole Blood 5.6 (H) 3.5 - 5.0 mmol/L [facility] LABORATORY Comment: Please note: Patients with WBC >100,000 may have falsely elevated Potassium levels. Contact the Clinical Chemistry L aboratory if there are any questions. ICa Whole Blood 1.11 (L) 1.15 - 1.33 mmol/L [facility] LABORATORY Comment: Note: ??Total bilirubin higher than 20 m g/dL may lead to falsely low ionized calcium. CL Whole Blood 94 (L) 98 - 107 mmol/L [facility] LABORATORY Gluc Whole Bld 136 65 - 199 mg/dL [facility] LABORATORY Comment: Diabetes: >=200 mg/dL plus symp toms. Lactate WB 1.4 0.5 - 2.2 mmol/L [facility] LABORATORY FIO2 Art 21 % [facility] LABORATORY PF Ratio Art 386 [facility] LABORATORY Specimen Anatomical Collection Method Collection Time Receive d Time (Source) Location / / Volume Laterality Blood 02/07/2022 12:52 02/07/2022 AM EDT 12:52 AM EDT Jayme Armstrong MD CHEMISTRY ORDERABLES Performing Organization Address City/State/[place] [address] (ABNORMAL) Basic Metabolic Panel (non-fasting) (02/07/2022 12:47 AM EDT) P athologist Signature Glucose Lvl 136 65 - 199 [facility] mg/dL [facility] LABORATORY Comment: Diabetes: >=200 mg/dL plus symp toms BUN 38 (H) 10 - 20 mg/dL [facility] LABORATORY Creatinine 3.43 (H) 0.80 - 1.50 mg/dL [facility] LABORATORY Comment: result rechecked-sf Sodium 125 (L) 135 - 145 mmol/L [facility] LABORATORY Potassium 5.8 (H) 3.5 - 5.0 mmol/L [facility] LABORATORY Comment: Please note: ??Patients with WBC >100,00 0 may have falsely elevated Potassium levels. ??For accurate Potassium quantif ication in these patients send serum separator tube (gold top) for subsequent determinations. ??Contact the Clinical Chemistry Laboratory if there are any qu estions. Chloride 94 (L) 98 - 107 mmol/L [facility] LABORATORY CO2 22 22 - 31 mmol/L [facility] LABORATORY Anion Gap 9 5 - 15 mmol/L [facility] LABORATORY Calcium 7.6 (L) 8.5 - 10.5 mg/dL [facility] LABORATORY Comment: result rechecked-sf Estimated GFR 24 (L) >=60 mL/min/1.73 m?? [facility] LABORATORY Comment: This patient's estimated [...] Organization Address City/State/[place] [address] (ABNORMAL) Phosphorus (02/07/2022 12:47 AM EDT) P athologist Signature Phosphorus 5.0 (H) 2.5 - 4.5 [facility] mg/dL [facility] LABORATORY Specimen Anatomical Collection Method Collection Time Receive d Time (Source) Location / / Volume Laterality Blood 02/07/2022 12:47 02/07/2022 1:02 AM EDT AM EDT Resulting Agency Comment Spec In Lab Gela Novak MD CHEMISTRY ORDERABLES Performing Organization Address City/[facility]/ZIP Code [place] [address] Magnesium (02/07/2022 12:47 AM EDT) P athologist Signature Magnesium 0.84 0.69 - 1.07 [facility] mmol/L [facility] LABORATORY Specimen Anatomical Collection Method Collection Time Receive d Time (Source) Location / / Volume Laterality Blood 02/07/2022 12:47 02/07/2022 1:02 AM EDT AM EDT Resulting Agency Comment Spec In Lab Gela Novak MD CHEMISTRY ORDERABLES Performing Organization Address City/[facility]/ZIP [facility] [place] [address] Fibrinogen (02/06/2022 11:11 PM EDT) athologist Signature Fibrinogen 362 200 - 393 [facility] mg/dL [facility] LABORATORY Comment: A fibrinogen level >100 mg/dL is adequat e for hemostasis in most patients without underlying bleeding disorders. Specimen Anatomical Collection Method Collection Time Receive d Time (Source) Location / / Volume Laterality Blood 02/06/2022 11:11 02/06/2022 PM EDT 11:15 PM EDT Resulting Agency Comment Spec In Lab Jeanette Escamilla APRN HEMATOLOGY ORDERABLES Performing Organization Address City/[facility]/ZIP [facility] [place] [address] Prothrombin Time (02/06/2022 11:11 PM EDT) P athologist Signature PT 11.0 9.4 - 12.5 [facility] LABORATORY INR 1.0 [facility] LABORATORY Comment: An INR <2.0 [...] Agency Comment Spec In Lab Jeanette Escamilla [employer] HEMATOLOGY ORDERABLES Performing Organization Address City/State/[place] [address] (ABNORMAL) Platelet count (02/06/2022 11:11 PM EDT) P athologist Signature Platelets 125 (L) 145 - 357 [facility] x10(3)/[facility] LABORATORY Plat Immature 5.3 0.0 - 7.4 [facility] % % [facility] LABORATORY Comment: Limitation of the Immature Platelet Frac tion (IPF)-May be less reliable when the platelet count is less than 80q690/u L due to statistical imprecision. The IPF [...] in a decreased state of production. References: [employer] The Clinical Value of the Immature Platelet Fraction (IPF) in Cell Recovery Document Number [id number] 12/2010 [employer] The Role of the Imm ature Platelet Fraction (IPF) in the Differential Diagnosis of Thrombocytopen ia, Document [id number] V012/10/13 P012/12 Specimen Anatomical Collection Method Collection Time Receive d Time (Source) Location / / Volume Laterality Blood 02/06/2022 11:11 02/06/2022 PM EDT 11:15 PM EDT Resulting Agency Comment Spec In Lab Jeanette E Escamilla [employer] HEMATOLOGY ORDERABLES Performing Organization Address City/[facility]/ZIP Code [place] [address] (ABNORMAL) Hematocrit (02/06/2022 11:11 PM EDT) P athologist Signature Hematocrit 20.8 (L) 40.5 - [facility] 48.5 % [facility] LABORATORY Specimen Anatomical Collection Method Collection Time Receive d Time (Source) Location / / Volume Laterality Blood 02/06/2022 11:11 02/06/2022 PM EDT 11:15 PM EDT Resulting Agency Comment Spec In Lab Jeanette Escamilla APRN HEMATOLOGY ORDERABLES Performing Organization Address City/[facility]/ZIP Code [place] [address] (ABNORMAL) Hemoglobin (02/06/2022 11:11 PM EDT) P athologist Signature Hemoglobin 7.7 (L) 13.7 - 16.5 [facility] g/dL [facility] LABORATORY Specimen Anatomical Collection Method Collection Time Receive d Time (Source) Location / / Volume Laterality Blood 02/06/2022 11:11 02/06/2022 PM EDT 11:15 PM EDT Resulting Agency Comment Spec In Lab Jeanette Escamilla APRN HEMATOLOGY ORDERABLES Performing Organization Address City/[facility]/ZIP Code [place] [address] (ABNORMAL) Sodium (02/06/2022 11:11 PM EDT) P athologist Signature Sodium 124 (L) 135 - 145 [facility] mmol/L [facility] LABORATORY Specimen Anatomical Collection Method Collection Time Receive d Time (Source) Location / / Volume Laterality Blood 02/06/2022 11:11 02/06/2022 PM EDT 11:15 PM EDT Resulting Agency Comment Spec In Lab Parrish Betancourt MD CHEMISTRY ORDERABLES Performing Organization Address City/[facility]/ZIP Code [place] [address] (ABNORMAL) Calcium Ionized Whole Blood, HONORIO (02/06/2022 10:51 PM EDT) Analysis Performed At Patho logist Time Signature pH Honorio 7.44 (H) 7.32 - [facility] 7.42 [facility] LABORATORY ICa Whole 1.07 (L) 1.15 - [facility] Blood 1.33 [facility] mmol/L [facility] LABORATORY Comment: Note: [...] Reynoso MD CHEMISTRY ORDERABLES Performing Organization Address City/[facility]/ZIP [facility] [place] [address] Fibrinogen (02/06/2022 10:20 PM EDT) P athologist Signature Fibrinogen 351 200 - 393 [facility] mg/dL [facility] LABORATORY Comment: A fibrinogen level >100 mg/dL is adequat e for hemostasis in most patients without underlying bleeding disorders. Specimen Anatomical Collection Method Collection Time Receive d Time (Source) Location / / Volume Laterality Blood 02/06/2022 10:20 02/06/2022 PM EDT 11:10 PM EDT Resulting Agency Comment Spec In Lab Jeanette Escamilla APRN HEMATOLOGY ORDERABLES Performing Organization Address City/[facility] [place] [address] Prothrombin Time (02/06/2022 10:20 PM EDT) P athologist Signature PT 11.1 9.4 - 12.5 [facility] LABORATORY INR 1.0 [facility] LABORATORY Comment: An INR <2.0 [...] Escamilla KATERYNA HEMATOLOGY ORDERABLES Performing Organization Address City/[facility]/ZIP [place] [address] (ABNORMAL) Platelet count (02/06/2022 10:20 PM EDT) P athologist Signature Platelets 126 (L) 145 - 357 [facility] x10(3)/[facility] LABORATORY Plat Immature 5.9 0.0 - 7.4 [facility] % % [facility] LABORATORY Comment: Limitation of the Immature Platelet Frac tion (IPF)-May be less reliable when the platelet count is less than 51g912/u L due to statistical imprecision. The IPF [...] in a decreased state of production. References: [employer] The Clinical Value of the Immature Platelet Fraction (IPF) in Cell Recovery Document Number [id number] 12/2010 [employer] The Role of the Imm ature Platelet Fraction (IPF) in the Differential Diagnosis of Thrombocytopen ia, Document [id number] V05/07/14 P05/14 Specimen Anatomical Collection Method Collection Time Receive d Time (Source) Location / / Volume Laterality Blood 02/06/2022 10:20 02/06/2022 PM EDT 11:10 PM EDT Resulting Agency Comment Spec In Lab Jeanette Martinez Andi AVENDAÑO HEMATOLOGY ORDERABLES Performing Organization Address City/State/ZIP Code Phon e Number [address] (ABNORMAL) Hematocrit (02/06/2022 10:20 PM EDT) athologist Signature Hematocrit 20.5 (L) 40.5 - [facility] 48.5 % [facility] LABORATORY Specimen Anatomical Collection Method Collection Time Receive d Time (Source) Location / / Volume Laterality Blood 02/06/2022 10:20 02/06/2022 PM EDT 11:10 PM EDT Resulting Agency Comment Spec In Lab Jeanette Escamilla APRN HEMATOLOGY ORDERABLES Performing Organization Address City/State/ZIP [place] [address] (ABNORMAL) Hemoglobin (02/06/2022 10:20 PM EDT) athologist Signature Hemoglobin 7.6 (L) 13.7 - 16.5 [facility] g/dL [facility] LABORATORY Specimen Anatomical Collection Method Collection Time Receive d Time (Source) Location / / Volume Laterality Blood 02/06/2022 10:20 02/06/2022 PM EDT 11:10 PM EDT Resulting Agency Comment Spec In Lab Jeanette Escamilla APRN HEMATOLOGY ORDERABLES Performing Organization Address City/[facility]/ZIP [place] [address] Fibrinogen (02/06/2022 7:45 PM EDT) athologist Signature Fibrinogen 321 200 - 393 [facility] mg/dL [facility] LABOR[facility]ORY Comment: A fibrinogen level >100 mg/dL is adequat e for hemostasis in most patients without underlying bleeding disorders. Specimen Anatomical Collection Method Collection Time Receive d Time (Source) Location / / Volume Laterality Blood 02/06/2022 7:45 PM 7:56 EDT PM EDT Resulting Agency Comment Spec In Lab Jeanette Escamilla APRN HEMATOLOGY ORDERABLES Performing Organization Address City/[facility]/ZIP [place] [address] Prothrombin Time (02/06/2022 7:45 PM EDT) athologist Signature PT 11.0 9.4 - 12.5 [facility] sec [facility] LABORATORY INR 1.0 [facility] LABORATORY Comment: An INR <2.0 [...] Organization Address City/State/[place] [address] (ABNORMAL) Platelet count (02/06/2022 7:45 PM EDT) P athologist Signature Platelets 137 (L) 145 - 357 [facility] x10(3)/[facility] LABORATORY Plat Immature 4.8 0.0 - 7.4 [facility] % % [facility] LABORATORY Comment: Limitation of the Immature Platelet Frac tion (IPF)-May be less reliable when the platelet count is less than 46l783/u L due to statistical imprecision. The IPF [...] in a decreased state of production. References: [employer] The Clinical Value of the Immature Platelet Fraction (IPF) in Cell Recovery Document Number [id number] 12/2010 [employer] The Role of the Imm ature Platelet Fraction (IPF) in the Differential Diagnosis of Thrombocytopen ia, Document [id number] V05/07/14 P05 Specimen Anatomical Collection Method Collection Time Receive d Time (Source) Location / / Volume Laterality Blood 02/06/2022 7:45 PM 2 7:56 EDT PM EDT Resulting Agency Comment Spec In Lab Jeanette Escamilla APRN HEMATOLOGY ORDERABLES Performing Organization Address City/[facility]/ZIP Code Phon e Number [address] (ABNORMAL) Hematocrit (02/06/2022 7:45 PM EDT) P athologist Signature Hematocrit 22.1 (L) 40.5 - [facility] 48.5 % [facility] LABORATORY Specimen Anatomical Collection Method Collection Time Receive d Time (Source) Location / / Volume Laterality Blood 02/06/2022 7:45 PM 2 7:56 EDT PM EDT Resulting Agency Comment Spec In Lab Jeanette Escamilla APRN HEMATOLOGY ORDERABLES Performing Organization Address City/[facility]/ZIP [place] [address] (ABNORMAL) Hemoglobin (02/06/2022 7:45 PM EDT) P athologist Signature Hemoglobin 8.1 (L) 13.7 - 16.5 [facility] g/dL [facility] LABORATORY Specimen Anatomical Collection Method Collection Time Receive d Time (Source) Location / / Volume Laterality Blood 02/06/2022 7:45 PM 2 7:56 EDT PM EDT Resulting Agency Comment Spec In Lab Jeanette Escamilla [employer] HEMATOLOGY ORDERABLES Performing Organization Address City/[facility]/ZIP [facility] [place] [address] (ABNORMAL) Electrolytes panel (02/06/2022 7:45 PM EDT) P athologist Signature Sodium 123 (L) 135 - 145 [facility] mmol/L [facility] LABORATORY Potassium 6.1 3.5 - 5.0 [facility] (Critical) mmol/L [facility] LABORATORY Comment: Called by: renuka, Read back by: dixie diego, Date/Time:02/06/22 20:32. Please note: ??Patients with WBC >100,00 0 may have falsely elevated Potassium levels. ??For accurate Potassium quantif ication in these patients send serum separator tube (gold top) for subsequent determinations. ??Contact the Clinical Chemistry Laboratory if there are any qu estions. Chloride 94 (L) 98 - 107 mmol/L [facility] LABORATORY CO2 21 (L) 22 - 31 mmol/L [facility] LABORATORY Anion Gap 8 5 - 15 mmol/L [facility] LABORATORY Specimen Anatomical Collection Method Collection Time Receive d Time (Source) Location / / Volume Laterality Blood 02/06/2022 7:45 PM 7:56 EDT PM EDT Resulting Agency Comment Spec In Lab Angelina Reynoso MD CHEMISTRY ORDERABLES Performing Organization Address City/State/[place] [address] (ABNORMAL) BLOOD GAS 2 ARTERIAL (02/06/2022 7:44 PM EDT) Analysis Performed At Patho logist Time Signature pH Art 7.44 7.35 - [facility] 7.45 [facility] LABORATORY pCO2 Art 31 (L) 35 - 45 [facility] mmHg [facility] LABORATORY pO2 Art 86 85 - 104 [facility] LABORATORY HCO3 Art 20.4 20.0 - [facility] 26.0 [facility] mmol/L [facility] LABORATORY BE Art -3.7 (L) -3.0 - 3.0 [facility] mmol/L [facility] LABORATORY Hgb Blood Gas 9.2 (L) 13.7 - [facility] 16.5 g/dL [facility] O2HB Art 94.1 94.0 - [facility] 97.0 % [facility] LABORATORY COHB Art 0.3 % [facility] LABORATORY Comment: Nonsmokers: 0.5-1.5% COHB Smokers: Variable, but usually less than 10% Toxic: 20-30% COHB Lethal: Greater than 60% COHB METHB Art 0.9 <=1.5 % [facility] LABORATORY Na Whole Blood 118 (Critical) 135 - 145 mmol/L [facility] LABORATORY Comment: Noted by chemical instrumentation officer. K Whole Blood 5.8 (H) 3.5 - 5.0 mmol/L [facility] LABORATORY Comment: Please note: Patients with WBC >100,000 may have falsely elevated Potassium levels. Contact the Clinical Chemistry L aboratory if there are any questions. ICa Whole Blood 1.03 (L) 1.15 - 1.33 mmol/L [facility] LABORATORY Comment: Note: ??Total bilirubin higher than 20 m g/dL may lead to falsely low ionized calcium. CL Whole Blood 94 (L) 98 - 107 mmol/L [facility] LABORATORY Gluc Whole Bld 143 65 - 199 mg/dL [facility] LABORATORY Comment: Diabetes: >=200 mg/dL plus symp toms. Lactate WB 1.5 0.5 - 2.2 mmol/L [facility] LABORATORY FIO2 Art 21 % [facility] LABORATORY PF Ratio Art 410 [facility] LABORATORY Specimen Anatomical Collection Method Collection Time Receive d Time (Source) Location / / Volume Laterality Blood 02/06/2022 7:44 PM 7:44 EDT PM EDT Jayme Armstrong MD CHEMISTRY ORDERABLES Performing Organization Address City/State/ZIP Code Phon e Number [place] [id number] [address] (ABNORMAL) BLOOD GAS 2 ARTERIAL (02/06/2022 5:47 PM EDT) Analysis Performed At Patho logist Time Signature pH Art 7.42 7.35 - [facility] 7.45 [facility] LABORATORY pCO2 Art 30 (L) 35 - 45 [facility] mmHg [facility] LABORATORY pO2 Art 68 (L) 85 - 104 [facility] LABORATORY HCO3 Art 19.2 (L) 20.0 - [facility] 26.0 [facility] mmol/[facility] LABORATORY BE Art -5.2 (L) -3.0 - 3.0 [facility] mmol/L [facility] LABORATORY Hgb Blood Gas 9.3 (L) 13.7 - [facility] 16.5 g/dL [facility] LABORATORY O2HB Art 91.8 (L) 94.0 - [facility] 97.0 % [facility] LABORATORY COHB Art 0.3 % [facility] LABORATORY Comment: Nonsmokers: 0.5-1.5% COHB Smokers: Variable, but usually less than 10% Toxic: 20-30% COHB Lethal: Greater than 60% COHB METHB Art 0.9 <=1.5 % [facility] LABORATORY Na Whole Blood 117 (Critical) 135 - 145 mmol/L [facility] LABORATORY Comment: Noted by chemical instrumentation officer. K Whole Blood 6.0 (H) 3.5 - 5.0 mmol/L [facility] LABORATORY Comment: Please note: Patients with WBC >100,000 may have falsely elevated Potassium levels. Contact the Clinical Chemistry L aboratory if there are any questions. ICa Whole Blood 0.98 (L) 1.15 - 1.33 mmol/L [facility] LABORATORY Comment: Note: ??Total bilirubin higher than 20 m g/dL may lead to falsely low ionized calcium. CL Whole Blood 93 (L) 98 - 107 mmol/L [facility] LABORATORY Gluc Whole Bld 131 65 - 199 mg/dL [facility] LABORATORY Comment: Diabetes: >=200 mg/dL plus symp toms. Lactate WB 1.8 0.5 - 2.2 mmol/L [facility] LABORATORY FIO2 Art 21 % [facility] LABORATORY PF Ratio Art 324 [facility] LABORATORY Specimen Anatomical Collection Method Collection Time Receive d Time (Source) Location / / Volume Laterality Blood 02/06/2022 5:47 PM 5:47 EDT PM EDT Jayme Armstrong MD CHEMISTRY ORDERABLES Performing Organization Address City/State/[place] [address] POCT Glucose (02/06/2022 5:44 PM EDT) athologist Signature POC Glucose 153 65 - 199 [facility] mg/dL [facility] LABORATORY Comment: Supplemental ranges: <140 mg/dL before meals <180 mg/dL all other times of the day Specimen Anatomical Collection Method Collection Time Receive d Time (Source) Location / / Volume Laterality Blood 02/06/2022 5:44 PM 2 5:44 EDT PM EDT Jayme Armstrong MD POINT OF CARE TEST ORDERABLE S Performing Organization Address [facility] Phon e Number [address] Fibrinogen (02/06/2022 4:33 PM EDT) P athologist Signature Fibrinogen 300 200 - 393 [facility] mg/dL [facility] LABORATORY Comment: OR Result called by [...] Armstrong MD HEMATOLOGY ORDERABLES Performing Organization Address [facility] Phon e Number [address] APTT (02/06/2022 4:33 PM EDT) P athologist Signature PTT 25 25 - 37 sec [facility] LABORATORY Comment: OR Result called [...] Armstrong MD HEMATOLOGY ORDERABLES Performing Organization Address City/[facility]/ZIP [place] [address] Prothrombin Time (02/06/2022 4:33 PM EDT) P athologist Signature PT 11.2 9.4 - 12.5 [facility] LABORATORY Comment: OR Result called by ?? PARSAD OR Result s read back by: ? Divina Otero at 2022-02-06 16:54:39 INR 1.0 [facility] LABORATORY Comment: OR Result called [...] Armstrong MD HEMATOLOGY ORDERABLES Performing Organization Address City/[facility]/ZIP [place] [address] (ABNORMAL) Phosphorus (02/06/2022 4:20 PM EDT) P athologist Signature Phosphorus 7.4 (H) 2.5 - 4.5 [facility] mg/dL [facility] LABORATORY Specimen Anatomical Collection Method Collection Time Receive d Time (Source) Location / / Volume Laterality Blood Venous Draw / 02/06/2022 4:20 PM 02/07/20 22 6:05 Unknown EDT PM EDT Resulting Agency Comment Spec In Lab Jeanette Escamilla APRN CHEMISTRY ORDERABLES Performing Organization Address City/[facility]/ZIP Code [place] [address] Magnesium (02/06/2022 4:20 PM EDT) P athologist Signature Magnesium 0.93 0.69 - 1.07 [facility] mmol/L [facility] LABORATORY Specimen Anatomical Collection Method Collection Time Receive d Time (Source) Location / / Volume Laterality Blood Venous Draw / 02/06/2022 4:20 PM 02/07/20 6:05 Unknown EDT PM EDT Resulting Agency Comment Spec In Lab Jeanette Escamilla APRN CHEMISTRY ORDERABLES Performing Organization Address City/State/ZIP Code Phon e Number [address] (ABNORMAL) Differential, Automated (02/06/2022 4:20 PM EDT) Patholo gist Method Time Signature Neutrophils % 56.4 % [facility] LABORATORY Neutr Abs (ANC) 13.74 (H) 1.70 - [facility] 6.10 [facility] x10(3)/[facility] LABORATORY Lymphocytes % 9.1 % [facility] LABORATORY Lymphocytes Abs 2.2 0.9 - 3.2 [facility] x10(3)/[facility] LABORATORY Monocytes % 13.3 % [facility] LABORATORY Monocyte Abs 3.2 (H) 0.3 - 0.9 [facility] x10(3)/[facility] LABORATORY Eosinophils % 1.1 % [facility] LABORATORY Eosinophils Abs 0.3 0.0 - 0.4 [facility] x10(3)/[facility] LABORATORY Basophils % 1.1 % [facility] LABORATORY Basophils Abs 0.3 (H) 0.0 - 0.1 [facility] x10(3)/[facility] LABORATORY Immature Gran % 19.00 % [facility] LABORATORY Comment: Immature granulocytes(IG's)percentage an d absolute count will include metamyelocytes, myelocytes, and promyelo cytes. Blood smears from CBCs yielding IG's will be scanned manually for concor dance. If this scan disagrees with the automated IG or if promyelocytes are not ed, a manual differential will be performed. Gemini Gran Abs 4.64 (H) 0.00 - 0.04 x10(3)/[facility] LABORATORY Specimen Anatomical Collection Method Collection Time Receive d Time (Source) Location / / Volume Laterality Blood 02/06/2022 4:20 PM 4:33 EDT PM EDT Resulting Agency Comment Spec In Lab Jayme Armstrong MD HEMATOLOGY ORDERABLES Performing Organization Address City/State/[place] [address] (ABNORMAL) Hemogram (02/06/2022 4:20 PM EDT) athologist Signature WBC 24.4 (H) 4.0 - 9.5 [facility] x10(3)/[facility] LABORATORY RBC 2.87 (L) 4.58 - [facility] 5.54 [facility] x10(6)/[facility] LABORATORY Hemoglobin 8.5 (L) 13.7 - [facility] 16.5 g/dL [facility] LABORATORY Hematocrit 23.4 (L) 40.5 - [facility] 48.5 % [facility] LABORATORY Comment: This result has been called to DIVINA MORA by Tamara Hernandez on 02 06 2022 at 1653, and has been read back. MCV 81.5 (L) 82.9 - 93.1 [facility] LABORATORY MCH 29.6 27.5 - 32.1 pg [facility] LABORATORY MCHC 36.3 (H) 32.0 - 35.7 g/dL [facility] LABORATORY Platelets 110 (L) 145 - 357 x10(3)/[facility] LABORATORY RDWSD 39.9 36.0 - 45.0 [facility] LABORATORY RDWCV 13.9 (H) 11.4 - 13.8 % [facility] LABORATORY MPV 9.7 7.6 - 12.9 [facility] LABORATORY nRBC % Auto 2.0 % [facility] LABORATORY nRBC Abs Auto 0.500 (H) 0.000 - 0.000 x10(3)/mcL [facility] LABORATORY Specimen Anatomical Collection Method Collection Time Receive d Time (Source) Location / / Volume Laterality Blood 02/06/2022 4:20 PM 4:33 EDT PM EDT Resulting Agency Comment Spec In Lab Jayme Armstrong MD HEMATOLOGY ORDERABLES Performing Organization Address City/State/[place] [address] (ABNORMAL) Basic Metabolic Panel (non-fasting) (02/06/2022 4:20 PM EDT) P athologist Signature Glucose Lvl 117 65 - 199 [facility] mg/dL [facility] LABORATORY Comment: Diabetes: >=200 mg/dL plus symp toms BUN 47 (H) 10 - 20 mg/dL [facility] LABORATORY Creatinine 4.73 (H) 0.80 - 1.50 mg/dL [facility] LABORATORY Sodium 122 (L) 135 - 145 mmol/L [facility] LABORATORY Potassium 6.1 (Critical) 3.5 - 5.0 mmol/L [facility] LABORATORY Comment: Called by [facility]/Read back by Virgie gunter/02/06/2022 @ [id number] Please note: ??Patients with WBC >100,00 0 may have falsely elevated Potassium levels. ??For accurate Potassium quantif ication in these patients send serum separator tube (gold top) for subsequent determinations. ??Contact the Clinical Chemistry Laboratory if there are any qu estions. Chloride 92 (L) 98 - 107 mmol/L [facility] LABORATORY CO2 21 (L) 22 - 31 mmol/L [facility] LABORATORY Anion Gap 9 5 - 15 mmol/L [facility] LABORATORY Calcium 6.7 (Critical) 8.5 - 10.5 mg/dL [facility] LABORATORY Comment: Called by [facility]/Read back by Soila Castle/02/06/2022 @ 1719 Estimated GFR 16 (L) >=60 mL/min/1.73 m?? [facility] LABORATORY Comment: This patient's estimated [...] Organization Address City/State/[place] [address] (ABNORMAL) BLOOD GAS 2 ARTERIAL (02/06/2022 3:54 PM EDT) Analysis Performed At Patho logist Time Signature pH Art 7.37 7.35 - [facility] 7.45 [facility] LABORATORY pCO2 Art 38 35 - 45 [facility] mmHg [facility] LABORATORY pO2 Art 325 (H) 85 - 104 [facility] LABORATORY HCO3 Art 21.8 20.0 - [facility] 26.0 [facility] mmol/L [facility] LABORATORY BE Art -3.4 (L) -3.0 - 3.0 [facility] mmol/L [facility] LABORATORY Hgb Blood Gas 8.8 (L) 13.7 - [facility] 16.5 g/dL [facility] LABORATORY O2HB Art 98.0 (H) 94.0 - [facility] 97.0 % [facility] LABORATORY COHB Art 1.1 % [facility] LABORATORY Comment: Nonsmokers: 0.5-1.5% COHB Smokers: Variable, but usually less than 10% Toxic: 20-30% COHB Lethal: Greater than 60% COHB METHB Art 0.3 <=1.5 % [facility] LABORATORY Na Whole Blood 117 (Critical) 135 - 145 mmol/L [facility] LABORATORY Comment: Critical notified to Amber Ray by ins trument boiler operator immediately following run time. K Whole Blood 5.7 (H) 3.5 - 5.0 mmol/L [facility] LABORATORY Comment: Please note: Patients with WBC >100,000 may have falsely elevated Potassium levels. Contact the Clinical Chemistry L aboratory if there are any questions. ICa Whole Blood 1.00 (L) 1.15 - 1.33 mmol/L [facility] LABORATORY Comment: Note: ??Total bilirubin higher than 20 m g/dL may lead to falsely low ionized calcium. CL Whole Blood 93 (L) 98 - 107 mmol/L [facility] LABORATORY Gluc Whole Bld 115 65 - 199 mg/dL [facility] LABORATORY Comment: Diabetes: >=200 mg/dL plus symp toms. Lactate WB 1.4 0.5 - 2.2 mmol/L [facility] LABORATORY Specimen Anatomical Collection Method Collection Time Receive d Time (Source) Location / / Volume Laterality Blood 02/06/2022 3:54 PM 2 3:54 EDT PM EDT Jayme Armstrong MD CHEMISTRY ORDERABLES Performing Organization Address City/State/ZIP Code Phon e Number [place] [id number] HOSPITAL LABORATORY Drive IR Arteriogram Lower Extremity [...] 2. Flat for 2 hours, following Right JIGMAKER Mynx closure deployment 3. Monitor for Right [...] anesthesia/sedation: General an esthesia Anesthesia/sedation [facility] by: [facility] Total intra-service sedation time (minut es): Please refer to anesthesia notes for further details. Access Local anesthesia was administered. The v essel was sonographically evaluated and judged to be patent. Real time ultrasoun d was used to visualize needle entry into the vessel and a permanent image wa s stored. A 5 Scottish sheath was placed. Vessel accessed: Right common femoral ar timo Access technique: Micropuncture set with 21 gauge needle Left pelvic angiography The left pelvic arterial system was cath eterized using a 150 cm 0.035 3J guidewire, 5 Scottish Berenstein catheter, 3 Scottish renegade STC microcatheter and wire. Vessel catheterized: [...] who have questions please contact the health wound care center consultant that requested your imaging first. ? Narrative [...] 2. Flat for 2 hours, following Right JIGMAKER Mynx closure deployment 3. Monitor for Right groin hematoma and bleeding. 4. IR will continue to follow, call for any questions or concerns. PROCEDURE SUMMARY: - Arterial access with ultrasound guidnathanael ce - Internal iliac angiography: Unilateral - [...] anesthesia/sedation: General an esthesia Anesthesia/sedation administered by: [facility] Total intra-service sedation time (minut es): Please refer to anesthesia notes for further details. Access Local anesthesia was administered. The v essel was sonographically evaluated and judged to be patent. Real time ultrasoun d was used to visualize needle entry into the vessel and a permanent image wa s stored. A 5 Scottish sheath was placed. Vessel accessed: Right common femoral ar timo Access technique: Micropuncture set with 21 gauge needle Left pelvic angiography The left pelvic arterial system was cath eterized using a 150 cm 0.035 3J guidewire, 5 Scottish Berenstein catheter, 3 Scottish renegade STC microcatheter and wire. Vessel catheterized: [...] ho have questions please contact the health wound care center consultant that requested your imaging first. Jeanette Escamilla APRN IMG IR ORDERABLES POCT Glucose (02/06/2022 12:16 PM EDT) athologist Signature POC Glucose 167 65 - 199 [facility] mg/dL [facility] LABORATORY Comment: Supplemental ranges: <140 mg/dL before meals <180 mg/dL all other times of the day Specimen Anatomical Collection Method Collection Time Receive d Time (Source) Location / / Volume Laterality Blood 02/06/2022 12:16 02/06/2022 PM EDT 12:16 PM EDT Jayme Armstrong MD POINT OF CARE TEST ORDERABLE S Performing Organization Address City/State/ZIP [place] [address] Fibrinogen (02/06/2022 11:30 AM EDT) athologist Signature Fibrinogen 279 200 - 393 [facility] mg/dL [facility] LABORATORY Comment: A fibrinogen level >100 mg/dL is adequat e for hemostasis in most patients without underlying bleeding disorders. Specimen Anatomical Collection Method Collection Time Receive d Time (Source) Location / / Volume Laterality Blood 02/06/2022 11:30 02/06/2022 AM EDT 11:36 AM EDT Resulting Agency Comment Spec In Lab Jeanette Escamilla APRN HEMATOLOGY ORDERABLES Performing Organization Address City/[facility]/ZIP [facility] [place] [address] Prothrombin Time (02/06/2022 11:30 AM EDT) athologist Signature PT 11.6 9.4 - 12.5 [facility] LABORATORY INR 1.0 [facility] LABORATORY Comment: An INR <2.0 [...] Agency Comment Spec In Lab Jeanette Escamilla WHITE LEAD FILTERER HEMATOLOGY ORDERABLES Performing Organization Address City/State/[place] [address] Platelet count (02/06/2022 11:30 AM EDT) athologist Signature Platelets 164 145 - 357 [facility] x10(3)/[facility] LABORATORY Plat Immature 4.2 0.0 - 7.4 [facility] % % [facility] LABORATORY Comment: Limitation of the Immature Platelet Frac tion (IPF)-May be less reliable when the platelet count is less than 07l685/u L due to statistical imprecision. The IPF [...] in a decreased state of production. References: [employer] The Clinical Value of the Immature Platelet Fraction (IPF) in Cell Recovery Document Number [id number] 12/2010 [employer] The Role of the Imm ature Platelet Fraction (IPF) in the Differential Diagnosis of Thrombocytopen ia, Document MKT-[id number] V0/07/14 P012/12 Specimen Anatomical Collection Method Collection Time Receive d Time (Source) Location / / Volume Laterality Blood 02/06/2022 11:30 02/06/2022 AM EDT 11:36 AM EDT Resulting Agency Comment Spec In Lab Jeanette Escamilla APRN HEMATOLOGY ORDERABLES Performing Organization Address [facility] [place] [address] (ABNORMAL) Hematocrit (02/06/2022 11:30 AM EDT) P athologist Signature Hematocrit 24.7 (L) 40.5 - [facility] 48.5 % [facility] LABORATORY Specimen Anatomical Collection Method Collection Time Receive d Time (Source) Location / / Volume Laterality Blood 02/06/2022 11:30 02/06/2022 AM EDT 11:36 AM EDT Resulting Agency Comment Spec In Lab Jeanette Escamilla APRN HEMATOLOGY ORDERABLES Performing Organization Address [facility]/ZIP Code [place] [address] (ABNORMAL) Hemoglobin (02/06/2022 11:30 AM EDT) P athologist Signature Hemoglobin 8.7 (L) 13.7 - 16.5 [facility] g/dL [facility] LABORATORY Specimen Anatomical Collection Method Collection Time Receive d Time (Source) Location / / Volume Laterality Blood 02/06/2022 11:30 02/06/2022 AM EDT 11:36 AM EDT Resulting Agency Comment Spec In Lab Jeanette Escamilla APRN HEMATOLOGY ORDERABLES Performing Organization Address City/[facility]/ZIP [place] [address] (ABNORMAL) Sodium (02/06/2022 11:30 AM EDT) P athologist Signature Sodium 122 (L) 135 - 145 [facility] mmol/L [facility] LABORATORY Specimen Anatomical Collection Method Collection Time Receive d Time (Source) Location / / Volume Laterality Blood 02/06/2022 11:30 02/06/2022 AM EDT 11:36 AM EDT Resulting Agency Comment Spec In Lab Parrish Betancourt MD CHEMISTRY ORDERABLES Performing Organization Address City/[facility]/ZIP Code Phon e Number [address] Prepare RBC (02/06/2022 10:35 AM EDT) P athologist Signature Dispensed? Yes [facility] LABORATORY Specimen Anatomical Collection Method Collection Time Receive d Time (Source) Location / / Volume Laterality Blood 02/06/2022 10:35 02/06/2022 AM EDT 10:32 AM EDT Jeanette Escamilla APRN BLOOD BANK ORDERABLES Performing Organization Address City/[facility]/ZIP [place] [address] Fibrinogen (02/06/2022 9:35 AM EDT) P athologist Signature Fibrinogen 279 200 - 393 [facility] mg/dL [facility] LABORATORY Comment: A fibrinogen level >100 mg/dL is adequat e for hemostasis in most patients without underlying bleeding disorders. Specimen Anatomical Collection Method Collection Time Receive d Time (Source) Location / / Volume Laterality Blood 02/06/2022 9:35 AM 9:44 EDT AM EDT Resulting Agency Comment Spec In Lab Jeanette Escamilla APRN HEMATOLOGY ORDERABLES Performing Organization Address City/[facility]/ZIP Code Phon e Number [address] Prothrombin Time (02/06/2022 9:35 AM EDT) P athologist Signature PT 11.4 9.4 - 12.5 [facility] LABORATORY INR 1.0 [facility] LABORATORY Comment: An INR <2.0 [...] Agency Comment Spec In Lab Jeanette Escamilla [employer] HEMATOLOGY ORDERABLES Performing Organization Address City/State/ZIP [place] [address] Platelet count (02/06/2022 9:35 AM EDT) athologist Signature Platelets 174 145 - 357 [facility] x10(3)/[facility] LABORATORY Plat Immature 4.6 0.0 - 7.4 [facility] % % [facility] LABORATORY Comment: Limitation of the Immature Platelet Frac tion (IPF)-May be less reliable when the platelet count is less than 27c465/u L due to statistical imprecision. The IPF [...] in a decreased state of production. References: [employer] The Clinical Value of the Immature Platelet Fraction (IPF) in Cell Recovery Document Number [id number] 12/2010 [employer] The Role of the Imm ature Platelet Fraction (IPF) in the Differential Diagnosis of Thrombocytopen ia, Document [id number] V05 P012/12 Specimen Anatomical Collection Method Collection Time Receive d Time (Source) Location / / Volume Laterality Blood 02/06/2022 9:35 AM 9:44 EDT AM EDT Resulting Agency Comment Spec In Lab Jeanette Escamilla KATERYNA HEMATOLOGY ORDERABLES Performing Organization Address City/State/ZIP [place] [address] (ABNORMAL) Hematocrit (02/06/2022 9:35 AM EDT) athologist Signature Hematocrit 25.9 (L) 40.5 - [facility] 48.5 % [facility] LABORATORY Specimen Anatomical Collection Method Collection Time Receive d Time (Source) Location / / Volume Laterality Blood 02/06/2022 9:35 AM 9:44 EDT AM EDT Resulting Agency Comment Spec In Lab Jeanette Escamilla APRN HEMATOLOGY ORDERABLES Performing Organization Address City/[facility]/ZIP [place] [address] (ABNORMAL) Hemoglobin (02/06/2022 9:35 AM EDT) P athologist Signature Hemoglobin 9.0 (L) 13.7 - 16.5 [facility] g/dL [facility] Specimen Anatomical Collection Method Collection Time Receive d Time (Source) Location / / Volume Laterality Blood 02/06/2022 9:35 AM 2 9:44 EDT AM EDT Resulting Agency Comment Spec In Lab Jeanette Escamilla APRN HEMATOLOGY ORDERABLES Performing Organization Address City/[facility] Code [place] [address] Transfuse RBC (02/06/2022 9:29 [...] Signature pH Art 7.46 (H) 7.35 - [facility] 7.45 [facility] LABORATORY pCO2 Art 31 (L) 35 - 45 [facility] mmHg [facility] LABORATORY pO2 Art 89 85 - 104 [facility] LABORATORY HCO3 Art 21.5 20.0 - [facility] 26.0 [facility] mmol/[facility] LABORATORY BE Art -2.3 -3.0 - 3.0 [facility] mmol/L [facility] LABORATORY Hgb Blood Gas 9.5 (L) 13.7 - [facility] 16.5 g/dL [facility] LABORATORY O2HB Art 95.5 94.0 - [facility] 97.0 % [facility] LABORATORY COHB Art 0.3 % [facility] LABORATORY Comment: Nonsmokers: 0.5-1.5% COHB Smokers: Variable, but usually less than 10% Toxic: 20-30% COHB Lethal: Greater than 60% COHB METHB Art 0.8 <=1.5 % [facility] LABORATORY Na Whole Blood 115 (Critical) 135 - 145 mmol/L [facility] LABORATORY Comment: Noted by chemical instrumentation officer. K Whole Blood 5.7 (H) 3.5 - 5.0 mmol/L [facility] LABORATORY Comment: Please note: Patients with WBC >100,000 may have falsely elevated Potassium levels. Contact the Clinical Chemistry L aboratory if there are any questions. ICa Whole Blood 0.93 (L) 1.15 - 1.33 mmol/L [facility] LABORATORY Comment: Note: ??Total bilirubin higher than 20 m g/dL may lead to falsely low ionized calcium. CL Whole Blood 92 (L) 98 - 107 mmol/L [facility] LABORATORY Gluc Whole Bld 138 65 - 199 mg/dL [facility] LABORATORY Comment: Diabetes: >=200 mg/dL plus symp toms. Lactate WB 1.7 0.5 - 2.2 mmol/L [facility] LABORATORY FIO2 Art 21 % [facility] LABORATORY PF Ratio Art 424 [facility] LABORATORY Specimen Anatomical Collection Method Collection Time Receive d Time (Source) Location / / Volume Laterality Blood 02/06/2022 9:06 AM 9:06 EDT AM EDT Dunia Han DO CHEMISTRY ORDERABLES Performing Organization Address City/State/[place] [address] (ABNORMAL) Phosphorus (02/06/2022 9:00 AM EDT) P athologist Signature Phosphorus 7.1 (H) 2.5 - 4.5 [facility] mg/dL [facility] LABORATORY Specimen Anatomical Collection Method Collection Time Receive d Time (Source) Location / / Volume Laterality Blood 02/06/2022 9:00 AM 2 9:04 EDT AM EDT Resulting Agency Comment Spec In Lab Angelina Reynoso MD CHEMISTRY ORDERABLES Performing Organization Address City/State/ZIP Code Phon e Number [address] Magnesium (02/06/2022 9:00 AM EDT) P athologist Signature Magnesium 0.99 0.69 - 1.07 [facility] mmol/L [facility] LABORATORY Specimen Anatomical Collection Method Collection Time Receive d Time (Source) Location / / Volume Laterality Blood 02/06/2022 9:00 AM 2 9:04 EDT AM EDT Resulting Agency Comment Spec In Lab Angelina Reynoso MD CHEMISTRY ORDERABLES Performing Organization Address City/State/ZIP [place] [address] (ABNORMAL) Creatinine (02/06/2022 9:00 AM EDT) Analysis Performed At Patho logist Time Signature Creatinine 4.64 (H) 0.80 - [facility] 1.50 mg/dL [facility] LABORATORY Estimated GFR 16 (L) >=60 [facility] mL/min/1.[address] LABORATORY Comment: This patient's estimated GFR [...] Reynoso MD CHEMISTRY ORDERABLES Performing Organization Address City/[facility]/ZIP Code Phon e Number [address] (ABNORMAL) BUN (02/06/2022 9:00 AM EDT) athologist Signature BUN 44 (H) 10 - 20 [facility] mg/dL [facility] LABORATORY Specimen Anatomical Collection Method Collection Time Receive d Time (Source) Location / / Volume Laterality Blood 02/06/2022 9:00 AM 2 9:04 EDT AM EDT Resulting Agency Comment Spec In Lab Angelina Reynoso MD CHEMISTRY ORDERABLES Performing Organization Address [facility] [place] [address] (ABNORMAL) Electrolytes panel (02/06/2022 9:00 AM EDT) P athologist Signature Sodium 123 (L) 135 - 145 [facility] mmol/L [facility] LABORATORY Potassium 6.0 (H) 3.5 - 5.0 [facility] mmol/L [facility] LABORATORY Comment: Please note: ??Patients with WBC >100,00 0 may have falsely elevated Potassium levels. ??For accurate Potassium quantif ication in these patients send serum separator tube (gold top) for subsequent determinations. ??Contact the Clinical Chemistry Laboratory if there are any qu estions. Chloride 91 (L) 98 - 107 mmol/L [facility] LABORATORY CO2 23 22 - 31 mmol/L [facility] LABORATORY Anion Gap 9 5 - 15 mmol/L [facility] LABORATORY Specimen Anatomical Collection Method Collection Time Receive d Time (Source) Location / / Volume Laterality Blood 02/06/2022 9:00 AM 2 9:04 EDT AM EDT Resulting Agency Comment Spec In Lab Angelina Reynoso MD CHEMISTRY ORDERABLES Performing Organization Address City/[facility]/ZIP [facility] [place] [address] Transfuse RBC (02/06/2022 8:38 AM EDT) Dunia Han DO NURSING TREATMENT ORDERAB LES - BLOOD ADMIN POCT Glucose (02/06/2022 7:47 AM EDT) athologist Signature POC Glucose 149 65 - 199 [facility] mg/dL [facility] LABORATORY Comment: Supplemental ranges: <140 mg/dL before meals <180 mg/dL all other times of the day Specimen Anatomical Collection Method Collection Time Receive d Time (Source) Location / / Volume Laterality Blood 02/06/2022 7:47 AM 7:47 EDT AM EDT Dunia Han DO POINT OF CARE TEST ORDERA BLES Performing Organization Address City/[facility]/ZIP Code Phon e Number [address] Prepare RBC (02/06/2022 7:40 AM EDT) athologist Signature Dispensed? Yes [facility] LABORATORY Specimen Anatomical Collection Method Collection Time Receive d Time (Source) Location / / Volume Laterality Blood 02/06/2022 7:40 AM 2 7:37 EDT AM EDT Dunia Han DO BLOOD BANK ORDERABLES Performing Organization Address City/[facility]/ZIP [facility] [place] [address] (ABNORMAL) Basic Metabolic Panel (non-fasting) (02/06/2022 7:40 AM EDT) athologist Signature Glucose Lvl 138 65 - 199 [facility] mg/dL [facility] LABORATORY Comment: Diabetes: >=200 mg/dL plus symp toms BUN 44 (H) 10 - 20 mg/dL [facility] LABORATORY Creatinine 4.52 (H) 0.80 - 1.50 mg/dL [facility] LABORATORY Sodium 123 (L) 135 - 145 mmol/L [facility] LABORATORY Potassium 5.4 (H) 3.5 - 5.0 mmol/L [facility] LABORATORY Comment: Please note: ??Patients with WBC >100,00 0 may have falsely elevated Potassium levels. ??For accurate Potassium quantif ication in these patients send serum separator tube (gold top) for subsequent determinations. ??Contact the Clinical Chemistry Laboratory if there are any qu estions. Chloride 91 (L) 98 - 107 mmol/L [facility] LABORATORY CO2 23 22 - 31 mmol/L [facility] LABORATORY Anion Gap 9 5 - 15 mmol/L [facility] LABORATORY Calcium 6.7 (Critical) 8.5 - 10.5 mg/dL [facility] LABORATORY Comment: Called by: , Read back by: Alden Colindres, Date/Time:02/06/22 09:21. Estimated GFR 17 (L) >=60 mL/min/1.73 m?? [facility] LABORATORY Comment: This patient's estimated [...] Organization Address City/State/[place] [address] (ABNORMAL) BLOOD GAS 2 VENOUS (02/06/2022 6:19 AM EDT) athologist Signature pH Honorio 7.40 7.32 - [facility] 7.42 [facility] LABORATORY pCO2 Honorio 40 (L) 41 - 51 [facility] LABORATORY pO2 Honorio 31 25 - 40 [facility] LABORATORY HCO3 Honorio 24.2 mmol/L [facility] LABORATORY BE Honorio -0.5 mmol/L [facility] LABORATORY Hgb Blood Gas 8.2 (L) 13.7 - [facility] 16.5 g/dL [facility] LABORATORY O2HB Honorio 65.2 % [facility] LABORATORY COHB Honorio 1.0 % [facility] LABORATORY Comment: Nonsmokers: 0.5-1.5% COHB Smokers: Variable, but usually less than 10% Toxic: 20-30% COHB Lethal: Greater than 60% COHB METHB Honorio 0.9 <=1.5 % [facility] LABORATORY Na Whole Blood 117 (Critical) 135 - 145 mmol/L [facility] LABORATORY Comment: Noted by chemical instrumentation officer. K Whole Blood 5.2 (H) 3.5 - 5.0 mmol/L [facility] LABORATORY Comment: Please note: Patients with WBC >100,000 may have falsely elevated Potassium levels. Contact the Clinical Chemistry L aboratory if there are any questions. ICa Whole Blood 0.96 (L) 1.15 - 1.33 mmol/L [facility] LABORATORY Comment: Note: ??Total bilirubin higher than 20 m g/dL may lead to falsely low ionized calcium. CL Whole Blood 91 (L) 98 - 107 mmol/L [facility] LABORATORY Gluc Whole Bld 113 65 - 199 mg/dL [facility] LABORATORY Comment: Diabetes: >=200 mg/dL plus symp toms Lactate WB 1.3 0.5 - 2.2 mmol/L [facility] LABORATORY BGas Source Venous [facility] LABORATORY Specimen Anatomical Collection Method Collection Time Receive d Time (Source) Location / / Volume Laterality Blood 02/06/2022 6:19 AM 6:19 EDT AM EDT Dunia Han DO CHEMISTRY ORDERABLES Performing Organization Address City/State/ZIP Code Phon e Number [address] Fibrinogen (02/06/2022 6:16 AM EDT) athologist Signature Fibrinogen 294 200 - 393 [facility] mg/dL [facility] LABORATORY Comment: A fibrinogen level >100 mg/dL is adequat e for hemostasis in most patients without underlying bleeding disorders. Specimen Anatomical Collection Method Collection Time Receive d Time (Source) Location / / Volume Laterality Blood 02/06/2022 6:16 AM 2 6:20 EDT AM EDT Resulting Agency Comment Spec In Lab Danielle Ramirez MD HEMATOLOGY ORDERABLES Performing Organization Address City/State/ZIP Code Phon e Number [address] Prothrombin Time (02/06/2022 6:16 AM EDT) athologist Signature PT 11.6 9.4 - 12.5 [facility] LABORATORY INR 1.0 [facility] LABORATORY Comment: An INR <2.0 [...] Organization Address City/State/ZIP Code Phon e Number [address] Platelet count (02/06/2022 6:16 AM EDT) athologist Signature Platelets 185 145 - 357 [facility] x10(3)/[facility] LABORATORY Plat Immature 2.7 0.0 - 7.4 [facility] % % [facility] LABORATORY Comment: Limitation of the Immature Platelet Frac tion (IPF)-May be less reliable when the platelet count is less than 25c538/u L due to statistical imprecision. The IPF [...] in a decreased state of production. References: [employer] The Clinical Value of the Immature Platelet Fraction (IPF) in Cell Recovery Document Number [id number] 12/2010 [employer] The Role of the Imm ature Platelet Fraction (IPF) in the Differential Diagnosis of Thrombocytopen ia, Document MKT-10-1209 V05 P05 Specimen Anatomical Collection Method Collection Time Receive d Time (Source) Location / / Volume Laterality Blood 02/06/2022 6:16 AM 2 6:20 EDT AM EDT Resulting Agency Comment Spec In Lab Danielle Ramirez MD HEMATOLOGY ORDERABLES Performing Organization Address City/[facility]/ZIP Code [place] [address] (ABNORMAL) Hematocrit (02/06/2022 6:16 AM EDT) P athologist Signature Hematocrit 20.5 (L) 40.5 - [facility] 48.5 % [facility] LABORATORY Specimen Anatomical Collection Method Collection Time Receive d Time (Source) Location / / Volume Laterality Blood 02/06/2022 6:16 AM 2 6:20 EDT AM EDT Resulting Agency Comment Spec In Lab Danielle Ramirez MD HEMATOLOGY ORDERABLES Performing Organization Address City/[facility]/ZIP Code [place] [address] (ABNORMAL) Hemoglobin (02/06/2022 6:16 AM EDT) P athologist Signature Hemoglobin 7.5 (L) 13.7 - 16.5 [facility] g/dL [facility] LABORATORY Specimen Anatomical Collection Method Collection Time Receive d Time (Source) Location / / Volume Laterality Blood 02/06/2022 6:16 AM 6:20 EDT AM EDT Resulting Agency Comment Spec In Lab Danielle Ramirez MD HEMATOLOGY ORDERABLES Performing Organization Address City/State/[place] [address] (ABNORMAL) BLOOD GAS 2 ARTERIAL (02/06/2022 6:14 AM EDT) Analysis Performed At Patho logist Time Signature pH Art 7.47 (H) 7.35 - [facility] 7.45 [facility] LABORATORY pCO2 Art 33 (L) 35 - 45 [facility] LABORATORY pO2 Art 83 (L) 85 - 104 [facility] LABORATORY HCO3 Art 23.3 20.0 - [facility] 26.0 [facility] mmol/L [facility] LABORATORY BE Art -0.3 -3.0 - 3.0 [facility] mmol/L [facility] LABORATORY Hgb Blood Gas 8.4 (L) 13.7 - [facility] 16.5 g/dL [facility] LABORATORY O2HB Art 94.3 94.0 - [facility] 97.0 % [facility] LABORATORY COHB Art 0.3 % [facility] LABORATORY Comment: Nonsmokers: 0.5-1.5% COHB Smokers: Variable, but usually less than 10% Toxic: 20-30% COHB Lethal: Greater than 60% COHB METHB Art 1.0 <=1.5 % [facility] LABORATORY Na Whole Blood 117 (Critical) 135 - 145 mmol/L [facility] LABORATORY Comment: Noted by chemical instrumentation officer. K Whole Blood 5.3 (H) 3.5 - 5.0 mmol/L [facility] LABORATORY Comment: Please note: Patients with WBC >100,000 may have falsely elevated Potassium levels. Contact the Clinical Chemistry L aboratory if there are any questions. ICa Whole Blood 0.96 (L) 1.15 - 1.33 mmol/L [facility] LABORATORY Comment: Note: ??Total bilirubin higher than 20 m g/dL may lead to falsely low ionized calcium. CL Whole Blood 91 (L) 98 - 107 mmol/L [facility] LABORATORY Gluc Whole Bld 117 65 - 199 mg/dL [facility] LABORATORY Comment: Diabetes: >=200 mg/dL plus symp toms. Lactate WB 1.3 0.5 - 2.2 mmol/L [facility] LABORATORY FIO2 Art 21 % [facility] LABORATORY PF Ratio Art 395 [facility] LABORATORY Specimen Anatomical Collection Method Collection Time Receive d Time (Source) Location / / Volume Laterality Blood 02/06/2022 6:14 AM 2 6:14 EDT AM EDT Dunia Han DO CHEMISTRY ORDERABLES Performing Organization Address City/[facility]/ZIP Code Phon e Number [address] Transfuse RBC (02/06/2022 6:01 AM EDT) Dunia Pat A Atchinson DO NURSING TREATMENT ORDERAB LES - BLOOD ADMIN Transfuse RBC (02/06/2022 6:01 AM EDT) Dunia Carlosh A Atchinson DO NURSING TREATMENT ORDERAB LES - BLOOD ADMIN Blood culture (02/06/2022 6:00 AM EDT) [employer] Method Time Signature Blood Culture No growth [facility] at 5 days. [facility] LABORATORY Specimen Anatomical Collection Method Collection Time Receive d Time (Source) Location / / Volume Laterality Blood 02/06/2022 6:00 AM 2 7:28 EDT AM EDT Resulting Agency Comment Spec In Lab Dunia Gaines Atchinstracey DO MICROBIOLOGY - BLOOD ORDE RABLES Performing Organization Address City/State/ZIP Code Phon e Number [address] Insert Arterial Line (02/06/2022 [...] p lanned procedure. ?? Hand Hygiene: The division operations specialist did perform h and hygiene prior [...] 4:20 AM EDT) athologist Signature Dispensed? Yes [facility] LABORATORY Specimen Anatomical Collection Method Collection Time Receive d Time (Source) Location / / Volume Laterality Blood 02/06/2022 4:20 AM 2 4:20 EDT AM EDT Dunia Han DO BLOOD BANK ORDERABLES Performing Organization Address City/State/[place] [address] Scan, Peripheral Blood (02/06/2022 3:48 AM EDT) [facility] gist Method Time Signature Plat Estimate Normal [facility] LABORATORY RBC Morphology Abnormal [facility] LABOR[facility]ORY Ovalocytes 1-5 /HPF [facility] LABORATORY Angel Cells 1-5 /HPF [facility] LABORATORY Specimen Anatomical Collection Method Collection Time Receive d Time (Source) Location / / Volume Laterality Blood 02/06/2022 3:48 AM 3:51 EDT AM EDT Resulting Agency Comment Spec In Lab Danielle Ramirez MD HEMATOLOGY ORDERABLES Performing Organization Address City/State/[place] [address] (ABNORMAL) Differential, Automated (02/06/2022 3:48 AM EDT) [employer] Method Time Signature Neutrophils % 56.0 % [facility] LABORATORY Neutr Abs (ANC) 10.94 (H) 1.70 - [facility] 6.10 [facility] x10(3)/[facility] LABORATORY Lymphocytes % 11.6 % [facility] LABORATORY Lymphocytes Abs 2.3 0.9 - 3.2 [facility] x10(3)/[facility] LABORATORY Monocytes % 15.0 % [facility] LABORATORY Monocyte Abs 2.9 (H) 0.3 - 0.9 [facility] x10(3)/[facility] LABORATORY Eosinophils % 1.0 % [facility] LABORATORY Eosinophils Abs 0.2 0.0 - 0.4 [facility] x10(3)/[facility] LABORATORY Basophils % 0.6 % [facility] LABORATORY Basophils Abs 0.1 0.0 - 0.1 [facility] x10(3)/[facility] LABORATORY Immature Gran % 15.80 % [facility] LABORATORY Comment: Immature granulocytes(IG's)percentage an d absolute count will include metamyelocytes, myelocytes, and promyelo cytes. Blood smears from CBCs yielding IG's will be scanned manually for concor dance. If this scan disagrees with the automated IG or if promyelocytes are not ed, a manual differential will be performed. Gemini Gran Abs 3.09 (H) 0.00 - 0.04 x10(3)/[facility] LABORATORY Specimen Anatomical Collection Method Collection Time Receive d Time (Source) Location / / Volume Laterality Blood 02/06/2022 3:48 AM 2 3:51 EDT AM EDT Resulting Agency Comment Spec In Lab Danielle Ramirez MD HEMATOLOGY ORDERABLES Performing Organization Address City/State/[place] [address] (ABNORMAL) Hemogram (02/06/2022 3:48 AM EDT) [facility] gist Method Time Signature WBC 19.5 (H) 4.0 - 9.5 [facility] x10(3)/[facility] LABORATORY RBC 2.27 (L) 4.58 - [facility] 5.54 [facility] x10(6)/[facility] LABORATORY Hemoglobin 6.9 (L) 13.7 - [facility] 16.5 g/dL [facility] LABORATORY Hematocrit 19.2 (L) 40.5 - [facility] 48.5 % [facility] LABORATORY MCV 84.6 82.9 - [facility] 93.1 [facility] LABORATORY MCH 30.4 27.5 - [facility] 32.1 pg [facility] LABORATORY MCHC 35.9 (H) 32.0 - [facility] 35.[facility] g/dL [facility] LABORATORY Platelets 147 145 - 357 [facility] x10(3)/[facility] LABORATORY RDWSD 45.8 (H) 36.0 - [facility] 45.0 [facility] LABORATORY RDWCV 15.1 (H) 11.4 - [facility] 13.8 % [facility] LABORATORY MPV 9.4 7.6 - 12.9 [facility] LABORATORY nRBC % Auto 0.4 % [facility] LABORATORY nRBC Abs Auto 0.080 (H) 0.000 - [facility] 0.000 [facility] x10(3)/[facility] LABORATORY Specimen Anatomical Collection Method Collection Time Receive d Time (Source) Location / / Volume Laterality Blood 02/06/2022 3:48 AM 2 3:51 EDT AM EDT Resulting Agency Comment Spec In Lab Danielle Ramirez MD HEMATOLOGY ORDERABLES Performing Organization Address City/State/[place] [address] (ABNORMAL) BLOOD GAS 2 ARTERIAL (02/06/2022 3:48 AM EDT) P athologist Signature pH Art 7.42 7.35 - [facility] 7.45 [facility] LABORATORY pCO2 Art 40 35 - 45 [facility] mmHg [facility] LABORATORY pO2 Art 36 85 - 104 [facility] (Critical) [facility] LABORATORY Comment: Noted by chemical instrumentation officer. HCO3 Art 25.7 20.0 - 26.0 mmol/L [facility] OCK [facility] LABORATORY BE Art 1.3 -3.0 - 3.0 mmol/L [facility] LABORATORY Hgb Blood Gas 7.9 (L) 13.7 - 16.5 g/dL [facility] LABORATORY O2HB Art 73.5 (L) 94.0 - 97.0 % [facility] LABORATORY COHB Art 0.5 % [facility] LABORATORY Comment: Nonsmokers: 0.5-1.5% COHB Smokers: Variable, but usually less than 10% Toxic: 20-30% COHB Lethal: Greater than 60% COHB METHB Art 1.2 <=1.5 % [facility] LABORATORY Na Whole Blood 118 (Critical) 135 - 145 mmol/L [facility] LABORATORY Comment: Noted by chemical instrumentation officer. K Whole Blood 5.2 (H) 3.5 - 5.0 mmol/L [facility] LABORATORY Comment: Please note: Patients with WBC >100,000 may have falsely elevated Potassium levels. Contact the Clinical Chemistry L aboratory if there are any questions. ICa Whole Blood 0.93 (L) 1.15 - 1.33 mmol/L [facility] LABORATORY Comment: Note: ??Total bilirubin higher than 20 m g/dL may lead to falsely low ionized calcium. CL Whole Blood 92 (L) 98 - 107 mmol/L [facility] LABORATORY Gluc Whole Bld 122 65 - 199 mg/dL [facility] LABORATORY Comment: Diabetes: >=200 mg/dL plus symp toms. Lactate WB 1.8 0.5 - 2.2 mmol/L [facility] LABORATORY Temp Art 37.0 Celsius [facility] LABORATORY Specimen Anatomical Collection Method Collection Time Receive d Time (Source) Location / / Volume Laterality Blood 02/06/2022 3:48 AM 2 3:48 EDT AM EDT Dunia Han DO CHEMISTRY ORDERABLES Performing Organization Address City/State/ZIP [place] [address] Prepare RBC (02/06/2022 1:20 AM EDT) P athologist Signature Dispensed? Yes [facility] LABORATORY Specimen Anatomical Collection Method Collection Time Receive d Time (Source) Location / / Volume Laterality Blood 02/06/2022 1:20 AM 2 1:18 EDT AM EDT Dunia Han DO BLOOD BANK ORDERABLES Performing Organization Address City/[facility]/ZIP Code [place] [address] Fibrinogen (02/06/2022 12:50 AM EDT) P athologist Signature Fibrinogen 298 200 - 393 [facility] mg/dL [facility] LABORATORY Comment: A fibrinogen level >100 mg/dL is adequat e for hemostasis in most patients without underlying bleeding disorders. Specimen Anatomical Collection Method Collection Time Receive d Time (Source) Location / / Volume Laterality Blood 02/06/2022 12:50 02/06/2022 1:04 AM EDT AM EDT Resulting Agency Comment Spec In Lab Danielle Ramirez MD HEMATOLOGY ORDERABLES Performing Organization Address City/[facility]/ZIP Code [place] [address] (ABNORMAL) Prothrombin Time (02/06/2022 12:50 AM EDT) P athologist Signature PT 14.6 (H) 9.4 - 12.5 [facility] LABORATORY INR 1.3 [facility] LABORATORY Comment: An INR <2.0 [...] Organization Address City/State/[place] [address] Platelet count (02/06/2022 12:50 AM EDT) P athologist Signature Platelets 202 145 - 357 [facility] x10(3)/[facility] LABORATORY Plat Immature 3.3 0.0 - 7.4 [facility] % % [facility] LABORATORY Comment: Limitation of the Immature Platelet Frac tion (IPF)-May be less reliable when the platelet count is less than 40e078/u L due to statistical imprecision. The IPF [...] in a decreased state of production. References: [employer] The Clinical Value of the Immature Platelet Fraction (IPF) in Cell Recovery Document Number 10-1143 12/2010 [employer] The Role of the Imm ature Platelet Fraction (IPF) in the Differential Diagnosis of Thrombocytopen ia, Document [id number] V05// P05/14 Specimen Anatomical Collection Method Collection Time Receive d Time (Source) Location / / Volume Laterality Blood 02/06/2022 12:50 02/06/2022 1:04 AM EDT AM EDT Resulting Agency Comment Spec In Lab Danielle Ramirez MD HEMATOLOGY ORDERABLES Performing Organization Address City/[facility]/ZIP Code Phon e Number [address] (ABNORMAL) Hematocrit (02/06/2022 12:50 AM EDT) athologist Signature Hematocrit 13.3 (L) 40.5 - [facility] 48.5 % [facility] LABORATORY Specimen Anatomical Collection Method Collection Time Receive d Time (Source) Location / / Volume Laterality Blood 02/06/2022 12:50 02/06/2022 1:04 AM EDT AM EDT Resulting Agency Comment Spec In Lab Danielle Ramirez MD HEMATOLOGY ORDERABLES Performing Organization Address City/[facility]/ZIP [place] [address] (ABNORMAL) Hemoglobin (02/06/2022 12:50 AM EDT) athologist Signature Hemoglobin 4.8 13.7 - [facility] (Critical) 16.5 g/dL [facility] LABORATORY Comment: This result has been [...] Ramirez MD HEMATOLOGY ORDERABLES Performing Organization Address City/[facility]/ZIP [place] [address] (ABNORMAL) Basic Metabolic Panel (non-fasting) (02/06/2022 12:50 AM EDT) athologist Signature Glucose Lvl 177 65 - 199 [facility] mg/dL [facility] LABORATORY Comment: Diabetes: >=200 mg/dL plus symp toms BUN 42 (H) 10 - 20 mg/dL [facility] LABORATORY Creatinine 4.29 (H) 0.80 - 1.50 mg/dL [facility] LABORATORY Sodium 124 (L) 135 - 145 mmol/L [facility] LABORATORY Potassium 5.3 (H) 3.5 - 5.0 mmol/L [facility] LABORATORY Comment: Please note: ??Patients with WBC >100,00 0 may have falsely elevated Potassium levels. ??For accurate Potassium quantif ication in these patients send serum separator tube (gold top) for subsequent determinations. ??Contact the Clinical Chemistry Laboratory if there are any qu estions. Chloride 89 (L) 98 - 107 mmol/L [facility] LABORATORY CO2 24 22 - 31 mmol/L [facility] LABORATORY Anion Gap 11 5 - 15 mmol/L [facility] LABORATORY Calcium 6.5 (Critical) 8.5 - 10.5 mg/dL [facility] LABORATORY Comment: called by bm/read back by bon anton 02/06/22 0147 Estimated GFR 18 (L) >=60 mL/min/1.73 m?? [facility] LABORATORY Comment: This patient's estimated [...] In Lab Dunia Pat A Atchinson DO CHEMISTRY ORDERABLES Performing Organization Address City/[facility]/ZIP [place] [address] (ABNORMAL) Phosphorus (02/06/2022 12:50 AM EDT) P athologist Signature Phosphorus 6.5 (H) 2.5 - 4.5 [facility] mg/dL [facility] LABORATORY Specimen Anatomical Collection Method Collection Time Receive d Time (Source) Location / / Volume Laterality Blood 02/06/2022 12:50 02/06/2022 1:04 AM EDT AM EDT Resulting Agency Comment Spec In Lab Gela Novak MD CHEMISTRY ORDERABLES Performing Organization Address City/[facility]/ZIP Code Phon e Number [address] Magnesium (02/06/2022 12:50 AM EDT) P athologist Signature Magnesium 0.88 0.69 - 1.07 [facility] mmol/L [facility] LABORATORY Specimen Anatomical Collection Method Collection Time Receive d Time (Source) Location / / Volume Laterality Blood 02/06/2022 12:50 02/06/2022 1:04 AM EDT AM EDT Resulting Agency Comment Spec In Lab Gela Novak MD CHEMISTRY ORDERABLES Performing Organization Address City/[facility]/ZIP Code Phon e Number [address] Transfuse thawed plasma (02/06/2022 [...] athologist Signature pH Honorio 7.40 7.32 - [facility] 7.42 [facility] pCO2 Honorio 34 (L) 41 - 51 [facility] LABORATORY pO2 Honorio 28 25 - 40 [facility] LABORATORY HCO3 Honorio 20.4 mmol/L [facility] Honorio -4.5 mmol/L [facility] LABORATORY Hgb Blood Gas 8.7 (L) 13.7 - [facility] 16.5 g/dL [facility] O2HB Honorio 60.3 % [facility] LABORATORY COHB Honorio 0.8 % [facility] LABORATORY Comment: Nonsmokers: 0.5-1.5% COHB Smokers: Variable, but usually less than 10% Toxic: 20-30% COHB Lethal: Greater than 60% COHB METHB Honorio 0.3 <=1.5 % [facility] LABORATORY Na Whole Blood 119 (Critical) 135 - 145 mmol/L [facility] LABORATORY Comment: Noted by chemical instrumentation officer. K Whole Blood 5.3 (H) 3.5 - 5.0 mmol/L [facility] LABORATORY Comment: Please note: Patients with WBC >100,000 may have falsely elevated Potassium levels. Contact the Clinical Chemistry L aboratory if there are any questions. ICa Whole Blood 0.95 (L) 1.15 - 1.33 mmol/L [facility] LABORATORY Comment: Note: ??Total bilirubin higher than 20 m g/dL may lead to falsely low ionized calcium. CL Whole Blood 93 (L) 98 - 107 mmol/L [facility] LABORATORY Gluc Whole Bld 163 65 - 199 mg/dL [facility] LABORATORY Comment: Diabetes: >=200 mg/dL plus symp toms Lactate WB 1.8 0.5 - 2.2 mmol/L [facility] LABORATORY BGas Source Venous [facility] LABORATORY Specimen Anatomical Collection Method Collection Time Receive d Time (Source) Location / / Volume Laterality Blood 02/05/2022 10:39 02/05/2022 PM EDT 10:39 PM EDT Dunia Han DO CHEMISTRY ORDERABLES Performing Organization Address City/State/ZIP [place] [address] Transfuse RBC (02/05/2022 10:34 PM EDT) Dilcia Lopez MD NURSING TREATMENT ORDERABLES - BLOOD ADMIN Transfuse RBC (02/05/2022 10:34 PM EDT) Dilcia Lopez MD NURSING TREATMENT ORDERABLES - BLOOD ADMIN (ABNORMAL) Hepatic Function Panel (02/05/2022 9:54 PM EDT) P athologist Signature Total Protein 3.2 (L) 6.1 - 8.0 [facility] g/dL [facility] LABORATORY Albumin 1.4 (L) 3.2 - 5.2 [facility] g/dL [facility] LABORATORY AST 21 0 - 39 [facility] unit/L [facility] LABORATORY ALT <5 0 - 55 [facility] unit/L [facility] LABORATORY Alk Phos 74 40 - 130 [facility] unit/L [facility] LABORATORY Total 0.4 0.2 - 1.3 [facility] Bilirubin mg/dL [facility] LABORATORY Bili, Direct 0.3 0.0 - 0.3 [facility] mg/dL [facility] LABORATORY Specimen Anatomical Collection Method Collection Time Receive d Time (Source) Location / / Volume Laterality Blood 02/05/2022 9:54 PM EDT 10:31 PM EDT Resulting Agency Comment Spec In Lab Dunia Han DO CHEMISTRY ORDERABLES Performing Organization Address City/[facility]/ZIP Code Phon e Number [address] (ABNORMAL) Basic Metabolic Panel (non-fasting) (02/05/2022 9:54 PM EDT) P athologist Signature Glucose Lvl 161 65 - 199 [facility] mg/dL [facility] LABORATORY Comment: Diabetes: >=200 mg/dL plus symp toms BUN 41 (H) 10 - 20 mg/dL [facility] LABORATORY Creatinine 4.29 (H) 0.80 - 1.50 mg/dL [facility] LABORATORY Sodium 123 (L) 135 - 145 mmol/L [facility] LABORATORY Potassium 5.7 (H) 3.5 - 5.0 mmol/L [facility] LABORATORY Comment: Please note: ??Patients with WBC >100,00 0 may have falsely elevated Potassium levels. ??For accurate Potassium quantif ication in these patients send serum separator tube (gold top) for subsequent determinations. ??Contact the Clinical Chemistry Laboratory if there are any qu estions. Chloride 92 (L) 98 - 107 mmol/L [facility] LABORATORY CO2 23 22 - 31 mmol/L [facility] LABORATORY Anion Gap 8 5 - 15 mmol/L [facility] LABORATORY Calcium 6.2 (Critical) 8.5 - 10.5 mg/dL [facility] LABORATORY Comment: called by bm/read back by bon anton 02/05/22 1670 Estimated GFR 18 (L) >=60 mL/min/1.73 m?? [facility] LABORATORY Comment: This patient's estimated [...] Organization Address City/State/ZIP Code Phon e Number [address] Transfuse RBC (02/05/2022 9:25 PM EDT) Dilcia Lopez MD NURSING TREATMENT ORDERABLES - BLOOD ADMIN Transfuse RBC (02/05/2022 9:25 PM EDT) Dilcia Lopez MD NURSING TREATMENT ORDERABLES - BLOOD ADMIN Prepare thawed plasma (02/05/2022 9:10 PM EDT) P athologist Signature Dispensed? Yes [facility] LABORATORY Specimen Anatomical Collection Method Collection Time Receive d Time (Source) Location / / Volume Laterality Blood 02/05/2022 9:10 PM 9:08 EDT PM EDT Dilcia Lopez MD BLOOD BANK ORDERABLES Performing Organization Address City/[facility]/ZIP Code Phon e Number [address] Transfuse RBC (02/05/2022 8:58 PM EDT) Dilcia Lopez MD NURSING TREATMENT ORDERABLES - BLOOD ADMIN Transfuse RBC (02/05/2022 8:58 PM EDT) Dilcia Lopez MD NURSING TREATMENT ORDERABLES - BLOOD ADMIN Prepare RBC (02/05/2022 8:50 PM EDT) P athologist Signature Dispensed? Yes [facility] LABORATORY Specimen Anatomical Collection Method Collection Time Receive d Time (Source) Location / / Volume Laterality Blood 02/05/2022 8:50 PM 2 8:50 EDT PM EDT Dilcia Lopez MD BLOOD BANK ORDERABLES Performing Organization Address City/State/ZIP Code Phon e Number [address] Prepare RBC (02/05/2022 8:40 PM EDT) P athologist Signature Dispensed? Yes [facility] LABORATORY Specimen Anatomical Collection Method Collection Time Receive d Time (Source) Location / / Volume Laterality Blood 02/05/2022 8:40 PM 2 8:38 EDT PM EDT Dilcia Lopez MD BLOOD BANK ORDERABLES Performing Organization Address City/[facility]/ZIP Code [place] [address] (ABNORMAL) Prothrombin Time (02/05/2022 8:35 PM EDT) athologist Signature PT 56.2 (H) 9.4 - 12.5 [facility] LABORATORY INR 4.9 [facility] LABORATORY Comment: An INR <2.0 [...] Lopez MD HEMATOLOGY ORDERABLES Performing Organization Address City/[facility]/ZIP [place] [address] Fibrinogen (02/05/2022 8:35 PM EDT) P athologist Signature Fibrinogen 314 200 - 393 [facility] mg/dL [facility] LABORATORY Comment: A fibrinogen level >100 mg/dL is adequat e for hemostasis in most patients without underlying bleeding disorders. Specimen Anatomical Collection Method Collection Time Receive d Time (Source) Location / / Volume Laterality Blood 02/05/2022 8:35 PM 2 8:45 EDT PM EDT Resulting Agency Comment Spec In Lab Dilcia Lopez MD HEMATOLOGY ORDERABLES Performing Organization Address City/[facility]/ZIP [place] [address] Prepare RBC (02/05/2022 7:55 PM EDT) athologist Signature Dispensed? Yes [facility] LABORATORY Specimen Anatomical Collection Method Collection Time Receive d Time (Source) Location / / Volume Laterality Blood 02/05/2022 7:55 PM 7:53 EDT PM EDT Dilcia Lopez MD BLOOD BANK ORDERABLES Performing Organization Address City/State/[place] [address] (ABNORMAL) Differential, Automated (02/05/2022 7:50 PM EDT) [facility] gist Method Time Signature Neutrophils % 66.9 % [facility] LABORATORY Neutr Abs (ANC) 15.42 (H) 1.70 - [facility] 6.10 [facility] x10(3)/[facility] LABORATORY Lymphocytes % 9.1 % [facility] LABORATORY Lymphocytes Abs 2.1 0.9 - 3.2 [facility] x10(3)/[facility] LABORATORY Monocytes % 11.5 % [facility] LABORATORY Monocyte Abs 2.7 (H) 0.3 - 0.9 [facility] x10(3)/[facility] LABORATORY Eosinophils % 0.4 % [facility] LABORATORY Eosinophils Abs 0.1 0.0 - 0.4 [facility] x10(3)/[facility] LABORATORY Basophils % 0.3 % [facility] LABORATORY Basophils Abs 0.1 0.0 - 0.1 [facility] x10(3)/[facility] LABORATORY Immature Gran % 11.80 % [facility] LABORATORY Comment: Immature granulocytes(IG's)percentage an d absolute count will include metamyelocytes, myelocytes, and promyelo cytes. Blood smears from CBCs yielding IG's will be scanned manually for concor dance. If this scan disagrees with the automated IG or if promyelocytes are not ed, a manual differential will be performed. Gemini Gran Abs 2.73 (H) 0.00 - 0.04 x10(3)/[facility] LABORATORY Specimen Anatomical Collection Method Collection Time Receive d Time (Source) Location / / Volume Laterality Blood 02/05/2022 7:50 PM 8:09 EDT PM EDT Resulting Agency Comment Spec In Lab Dilcia Lopez MD HEMATOLOGY ORDERABLES Performing Organization Address City/State/[place] [address] (ABNORMAL) Hemogram (02/05/2022 7:50 PM EDT) athologist Signature WBC 23.1 (H) 4.0 - 9.5 [facility] x10(3)/[facility] LABORATORY RBC 1.62 (L) 4.58 - [facility] 5.54 [facility] x10(6)/[facility] LABORATORY Hemoglobin 4.9 13.7 - [facility] (Critical) 16.5 g/dL [facility] LABORATORY Comment: This result has been called to SHAHEEN GARZA by Graciela Sherman on 02 05 2022 at 2034, and has been read back. Hematocrit 13.7 (L) 40.5 - 48.5 % [facility] LABORATORY MCV 84.6 82.9 - 93.1 fL [facility] LABORATORY Comment: This result has been called to SHAHEEN GARZA by Graciela Sherman on 02 05 2022 at 2034, and has been read back. MCH 30.2 27.5 - 32.1 pg [facility] LABORATORY MCHC 35.8 (H) 32.0 - 35.7 g/dL [facility] LABORATORY Platelets 266 145 - 357 x10(3)/[facility] LABORATORY RDWSD 46.3 (H) 36.0 - 45.0 fL [facility] LABORATORY RDWCV 15.8 (H) 11.4 - 13.8 % [facility] LABORATORY MPV 10.2 7.6 - 12.9 fL [facility] LABORATORY nRBC % Auto 0.1 % [facility] LABORATORY nRBC Abs Auto 0.030 (H) 0.000 - 0.000 x10(3)/[facility] LABORATORY Specimen Anatomical Collection Method Collection Time Receive d Time (Source) Location / / Volume Laterality Blood 02/05/2022 7:50 PM 2 8:09 EDT PM EDT Resulting Agency Comment Spec In Lab Dilcia Lopez MD HEMATOLOGY ORDERABLES Performing Organization Address City/[facility]/ZIP Code [place] [address] Blood culture (02/05/2022 6:41 PM EDT) Patholo gist Method Time Signature Blood Culture No growth [facility] GILMORE at 5 days. [facility] LABORATORY Specimen Anatomical Collection Method Collection Time Receive d Time (Source) Location / / Volume Laterality Blood 02/05/2022 6:41 PM 2 8:46 EDT PM EDT Comment: R FA Resulting Agency Comment Spec In Lab Dilcia Lopez MD MICROBIOLOGY - BLOOD ORDERAB LES Performing Organization Address City/[facility]/ZIP Code Phon e Number [place] [place] [address] (ABNORMAL) Hemoglobin (02/05/2022 5:20 PM EDT) P athologist Signature Hemoglobin 7.1 (L) 13.7 - 16.5 [facility] g/dL [facility] LABORATORY Specimen Anatomical Collection Method Collection Time Receive d Time (Source) Location / / Volume Laterality Blood 02/05/2022 5:20 PM 2 5:30 EDT PM EDT Resulting Agency Comment Spec In Lab Dilcia Lopez MD HEMATOLOGY ORDERABLES Performing Organization Address City/[facility]/ZIP Code [place] [address] Prepare RBC (02/05/2022 2:20 PM EDT) P athologist Signature Dispensed? Yes [facility] LABORATORY Specimen Anatomical Collection Method Collection Time Receive d Time (Source) Location / / Volume Laterality Blood 02/05/2022 2:20 PM 2 2:16 EDT PM EDT Tom Valdovinos MD BLOOD BANK ORDERABLES Performing Organization Address City/[facility]/ZIP Code Phon e Number [address] (ABNORMAL) Hemoglobin (02/05/2022 9:30 AM EDT) athologist Signature Hemoglobin 7.0 (L) 13.7 - 16.5 [facility] g/dL [facility] LABORATORY Specimen Anatomical Collection Method Collection Time Receive d Time (Source) Location / / Volume Laterality Blood 02/05/2022 9:30 AM 9:39 EDT AM EDT Resulting Agency Comment Spec In Lab Dilcia Lopez MD HEMATOLOGY ORDERABLES Performing Organization Address City/State/ZIP Code Phon e Number [address] Transfuse RBC (02/05/2022 6:54 AM EDT) Coty Walton MD NURSING TREATMENT ORDERABLES - BLOOD ADMIN Transfuse RBC (02/05/2022 6:54 AM EDT) Coty Walton MD NURSING TREATMENT ORDERABLES - BLOOD ADMIN Transfuse RBC (02/05/2022 5:07 AM EDT) Coty Walton MD NURSING TREATMENT ORDERABLES - BLOOD ADMIN Prepare RBC (02/05/2022 2:35 AM EDT) athologist Signature Dispensed? Yes [facility] LABORATORY Specimen Anatomical Collection Method Collection Time Receive d Time (Source) Location / / Volume Laterality Blood 02/05/2022 2:35 AM 2:34 EDT AM EDT Coty Walton MD BLOOD BANK ORDERABLES Performing Organization Address City/State/ZIP [place] [address] Type and Screen Validity (02/05/2022 1:50 AM EDT) [employer] Method Time Signature T&S only valid [facility] LABORATORY Comment: This Type and Screen result is only valid at the [facility] Specimen Anatomical Collection Method Collection Time Receive d Time (Source) Location / / Volume Laterality Blood 02/05/2022 1:50 AM 2 2:08 EDT AM EDT Resulting Agency Comment Spec In Lab Coty Walton MD BLOOD BANK ORDERABLES Performing Organization Address City/[facility]/ZIP [place] [address] ABORH Recheck Status (02/05/2022 1:50 AM EDT) [employer] Method Time Signature ABORH Type Completed [facility] LABORATORY Specimen Anatomical Collection Method Collection Time Receive d Time (Source) Location / / Volume Laterality Blood 02/05/2022 1:50 AM 2 2:08 EDT AM EDT Resulting Agency Comment Spec In Lab Coty Walton MD BLOOD BANK ORDERABLES Performing Organization Address City/[facility]/ZIP [place] [address] Antibody screen (02/05/2022 1:50 AM EDT) [employer] Method Time Signature Ab Screen Negative [facility] LABORATORY Expires at 02/08/2022 [facility] [id number] on: [facility] LABORATORY Specimen Anatomical Collection Method Collection Time Receive d Time (Source) Location / / Volume Laterality Blood 02/05/2022 1:50 AM 2 2:08 EDT AM EDT Resulting Agency Comment Spec In Lab Coty Walton MD BLOOD BANK ORDERABLES Performing Organization Address City/[facility]/ZIP [place] [address] ABO/Rh Typing (02/05/2022 1:50 AM EDT) P athologist Signature ABORh Type A Pos [facility] LABORATORY Specimen Anatomical Collection Method Collection Time Receive d Time (Source) Location / / Volume Laterality Blood 02/05/2022 1:50 AM 2 2:08 EDT AM EDT Resulting Agency Comment Spec In Lab Coty Walton MD BLOOD BANK ORDERABLES Performing Organization Address City/[facility]/ZIP [place] [address] (ABNORMAL) Differential, Automated (02/05/2022 12:56 AM EDT) [facility] gist Method Time Signature Neutrophils % 71.9 % [facility] LABORATORY Neutr Abs (ANC) 21.60 (H) 1.70 - [facility] 6.10 [facility] x10(3)/[facility] LABORATORY Lymphocytes % 8.3 % [facility] LABORATORY Lymphocytes Abs 2.5 0.9 - 3.2 [facility] x10(3)/[facility] LABORATORY Monocytes % 8.8 % [facility] LABORATORY Monocyte Abs 2.6 (H) 0.3 - 0.9 [facility] x10(3)/[facility] LABORATORY Eosinophils % 0.4 % [facility] LABORATORY Eosinophils Abs 0.1 0.0 - 0.4 [facility] x10(3)/[facility] LABORATORY Basophils % 0.3 % [facility] LABORATORY Basophils Abs 0.1 0.0 - 0.1 [facility] x10(3)/[facility] LABORATORY Immature Gran % 10.30 % [facility] LABORATORY Comment: Immature granulocytes(IG's)percentage an d absolute count will include metamyelocytes, myelocytes, and promyelo cytes. Blood smears from CBCs yielding IG's will be scanned manually for concor dance. If this scan disagrees with the automated IG or if promyelocytes are not ed, a manual differential will be performed. Gemini Gran Abs 3.11 (H) 0.00 - 0.04 x10(3)/[facility] LABORATORY Specimen Anatomical Collection Method Collection Time Receive d Time (Source) Location / / Volume Laterality Blood 02/05/2022 12:56 02/05/2022 1:20 AM EDT AM EDT Resulting Agency Comment Spec In Lab Dilcia Lopez MD HEMATOLOGY ORDERABLES Performing Organization Address City/State/ZIP [place] [address] (ABNORMAL) Hemogram (02/05/2022 12:56 AM EDT) athologist Signature WBC 30.1 4.0 - 9.5 [facility] (Critical) x10(3)/[facility] LABORATORY Comment: This result has been called to WILLIE PAYNE by GAMA THOMPSON on 02 05 2022 at 0137, and has been read back. RBC 1.61 (L) 4.58 - 5.54 x10(6)/[facility] LABORATORY Hemoglobin 5.2 (Critical) 13.7 - 16.5 g/dL [facility] LABORATORY Comment: This result has been called to WILLIE PAYNE by GAAM THOMPSON on 02 05 2022 at 0137, and has been read back. Hematocrit 14.8 (L) 40.5 - 48.5 % [facility] LABORATORY MCV 91.9 82.9 - 93.1 [facility] LABORATORY MCH 32.3 (H) 27.5 - 32.1 pg [facility] LABORATORY MCHC 35.1 32.0 - 35.7 g/dL [facility] LABORATORY Platelets 363 (H) 145 - 357 x10(3)/[facility] LABORATORY RDWSD 47.0 (H) 36.0 - 45.0 [facility] LABORATORY RDWCV 14.8 (H) 11.4 - 13.8 % [facility] LABORATORY MPV 10.3 7.6 - 12.9 [facility] LABORATORY nRBC % Auto 0.1 % [facility] LABORATORY nRBC Abs Auto 0.020 (H) 0.000 - 0.000 x10(3)/[facility] LABORATORY Specimen Anatomical Collection Method Collection Time Receive d Time (Source) Location / / Volume Laterality Blood 02/05/2022 12:56 02/05/2022 1:20 AM EDT AM EDT Resulting Agency Comment Spec In Lab Dilcia Lopez MD HEMATOLOGY ORDERABLES Performing Organization Address City/State/[place] [address] (ABNORMAL) Basic Metabolic Panel (non-fasting) (02/05/2022 12:56 AM EDT) P athologist Signature Glucose Lvl 125 65 - 199 [facility] mg/dL [facility] LABORATORY Comment: Diabetes: >=200 mg/dL plus symp toms BUN 49 (H) 10 - 20 mg/dL [facility] LABORATORY Creatinine 4.98 (H) 0.80 - 1.50 mg/dL [facility] LABORATORY Sodium 122 (L) 135 - 145 mmol/L [facility] LABORATORY Potassium 5.9 (H) 3.5 - 5.0 mmol/L [facility] LABORATORY Comment: Please note: ??Patients with WBC >100,00 0 may have falsely elevated Potassium levels. ??For accurate Potassium quantif ication in these patients send serum separator tube (gold top) for subsequent determinations. ??Contact the Clinical Chemistry Laboratory if there are any qu estions. Chloride 90 (L) 98 - 107 mmol/L [facility] LABORATORY CO2 24 22 - 31 mmol/L [facility] LABORATORY Anion Gap 8 5 - 15 mmol/L [facility] LABORATORY Calcium 6.4 (Critical) 8.5 - 10.5 mg/dL [facility] LABORATORY Comment: Called by: wesley, Read back by: Jesus Whittaker, Date/Time:02/05/22 02:07. Estimated GFR 15 (L) >=60 mL/min/1.73 m?? [facility] LABORATORY Comment: This patient's estimated [...] Organization Address City/State/ZIP [place] [address] (ABNORMAL) Phosphorus (02/05/2022 12:56 AM EDT) P athologist Signature Phosphorus 7.1 (H) 2.5 - 4.5 [facility] mg/dL [facility] LABORATORY Specimen Anatomical Collection Method Collection Time Receive d Time (Source) Location / / Volume Laterality Blood 02/05/2022 12:56 02/05/2022 1:20 AM EDT AM EDT Resulting Agency Comment Spec In Lab Gela Novak MD CHEMISTRY ORDERABLES Performing Organization Address City/[facility]/ZIP [place] [address] Magnesium (02/05/2022 12:56 AM EDT) P athologist Signature Magnesium 0.84 0.69 - 1.07 [facility] mmol/L [facility] LABORATORY Specimen Anatomical Collection Method Collection Time Receive d Time (Source) Location / / Volume Laterality Blood 02/05/2022 12:56 02/05/2022 1:20 AM EDT AM EDT Resulting Agency Comment Spec In Lab Gela Novak MD CHEMISTRY ORDERABLES Performing Organization Address City/[facility]/ZIP Code [place] [address] (ABNORMAL) BLOOD GAS 2 VENOUS (02/04/2022 6:43 PM EDT) P athologist Signature pH Honorio 7.34 7.32 - [facility] 7.42 [facility] LABORATORY pCO2 Honorio 43 41 - 51 [facility] LABORATORY pO2 Honorio 34 25 - 40 [facility] LABORATORY HCO3 Honorio 22.6 mmol/L [facility] LABORATORY BE Honorio -3.2 mmol/L [facility] LABORATORY Hgb Blood Gas 7.4 (L) 13.7 - [facility] 16.5 g/dL [facility] LABORATORY O2HB Honorio 58.9 % [facility] LABORATORY COHB Honorio 1.8 % [facility] LABORATORY Comment: Nonsmokers: 0.5-1.5% COHB Smokers: Variable, but usually less than 10% Toxic: 20-30% COHB Lethal: Greater than 60% COHB METHB Honorio 0.3 <=1.5 % [facility] LABORATORY Na Whole Blood 118 (Critical) 135 - 145 mmol/L [facility] LABORATORY K Whole Blood 5.2 (H) 3.5 - 5.0 mmol/L [facility] LABORATORY Comment: Please note: Patients with WBC >100,000 may have falsely elevated Potassium levels. Contact the Clinical Chemistry L aboratory if there are any questions. ICa Whole Blood 0.99 (L) 1.15 - 1.33 mmol/L [facility] LABORATORY Comment: Note: ??Total bilirubin higher than 20 m g/dL may lead to falsely low ionized calcium. CL Whole Blood 92 (L) 98 - 107 mmol/L [facility] LABORATORY Gluc Whole Bld 100 65 - 199 mg/dL [facility] LABORATORY Comment: Diabetes: >=200 mg/dL plus symp toms Lactate WB 1.5 0.5 - 2.2 mmol/L [facility] LABORATORY BGas Source Venous [facility] LABORATORY Specimen Anatomical Collection Method Collection Time Receive d Time (Source) Location / / Volume Laterality Blood 02/04/2022 6:43 PM 6:43 EDT PM EDT Dilcia Lopez MD CHEMISTRY ORDERABLES Performing Organization Address City/State/[place] [address] Trichomonas Gene Amp ([facility]/CGP/APD/NLH) Urine (02/04/2022 4:20 PM EDT) [facility] Signature Trich Gene Amp Negative Negative [facility] LABORATORY Comment: The only FDA approved specimen types for this assay are cervix and vaginal. Trich Source Urine [facility] LABORATORY Specimen Anatomical Collection Method Collection Time Receive d Time (Source) Location / / Volume Laterality Urine 02/04/2022 4:20 PM 2 5:03 EDT PM EDT Resulting Agency Comment Spec In Lab Dilcia Lopez MD MICROBIOLOGY - GENERAL ORDER JT Performing Organization Address [facility]/ZIP Code Phon e [address] Chlamydia Gene Amp ([facility]/CGP/APD/NLH) Urine (02/04/2022 4:20 PM EDT) Analysis Performed At Patho logist Time Signature Chlamydia Gene Negative Negative [facility] LABORATORY Comment: The only FDA approved specimen types for this assay are cervical, vaginal, urethral and urine. Non-FDA approved myriam rces are eye, throat and rectal and have been internally validated. Chlamydia Source Urine [facility] LABORATORY Specimen Anatomical Collection Method Collection Time Receive d Time (Source) Location / / Volume Laterality Urine 02/04/2022 4:20 PM 2 5:03 EDT PM EDT Resulting Agency Comment Spec In Lab Dilcia Lopez MD MICROBIOLOGY - GENERAL ORDER JT Performing Organization Address [facility] Phon e [address] GC Gene Amp ([facility]/CGP/APD/NLH) Urine (02/04/2022 4:20 PM EDT) P athologist Signature GC Gene Amp Negative Negative [facility] LABORATORY Comment: The only FDA approved specimen types for this assay are cervical, vaginal, urethral and urine. Non-FDA approved myriam rces are eye, throat and rectal and have been internally validated. GC Source Urine [facility] LABORATORY Specimen Anatomical Collection Method Collection Time Receive d Time (Source) Location / / Volume Laterality Urine 02/04/2022 4:20 PM 2 5:03 EDT PM EDT Resulting Agency Comment Spec In Lab Dilcia Lopez MD MICROBIOLOGY - GENERAL ORDER JT Performing Organization Address City/State/[place] [address] EKG 12 Lead (02/04/2022 6:17 AM EDT) Component Value Ref Range Test Analysis Performed Pathologis t Method Time At Signature Ventricular rate 99 BPM MUSE SYSTEM Atrial Rate 99 BPM MUSE SYSTEM P-R Interval 146 ms MUSE SYSTEM QRS Duration 96 ms MUSE SYSTEM Q-T Interval 336 ms MUSE SYSTEM QTC Calculated 431 ms MUSE SYSTEM (Bezet) Calculated P Warren 37 degrees MUSE SYSTEM Calculated R Warren 16 degrees MUSE SYSTEM Calculated T Warren 14 degrees MUSE SYSTEM INTERPRETATION Normal sinus rhythm MUSE SYSTEM Normal ECG When compared with ECG of 30-JAN-2022 09:18, Nonspecific T wave abnormality, improved in Inferior leads Confirmed by Tucker Beard ([id number]) on 02/04/2022 5:25:0 4 PM Specimen Anatomical Collection Method Collection Time Receive d Time (Source) Location / / Volume Laterality 02/04/2022 6:17 AM 5:25 EDT PM EDT Candida Krishna MD ECG ORDERABLES Performing Organization Address City/[facility]/ZIP Code Phon e Number MUSE SYSTEM (ABNORMAL) Albumin Level (02/04/2022 4:21 AM EDT) P athologist Signature Albumin 1.7 (L) 3.2 - 5.2 [facility] g/dL [facility] LABORATORY Specimen Anatomical Collection Method Collection Time Receive d Time (Source) Location / / Volume Laterality Blood Venous Draw / 02/04/2022 4:21 AM 02/05/20 4:25 Unknown EDT AM EDT Resulting Agency Comment Spec In Lab Candida Krishna MD CHEMISTRY ORDERABLES Performing Organization Address City/[facility]/[place] [address] (ABNORMAL) Differential, Automated (02/04/2022 4:21 AM EDT) Patholo gist Method Time Signature Neutrophils % 71.7 % [facility] LABORATORY Neutr Abs (ANC) 22.88 (H) 1.70 - [facility] 6.10 [facility] x10(3)/[facility] LABORATORY Lymphocytes % 8.4 % [facility] LABORATORY Lymphocytes Abs 2.7 0.9 - 3.2 [facility] x10(3)/[facility] LABORATORY Monocytes % 8.2 % [facility] LABORATORY Monocyte Abs 2.6 (H) 0.3 - 0.9 [facility] x10(3)/[facility] LABORATORY Eosinophils % 1.4 % [facility] LABORATORY Eosinophils Abs 0.4 0.0 - 0.4 [facility] x10(3)/[facility] LABORATORY Basophils % 0.6 % [facility] LABORATORY Basophils Abs 0.2 (H) 0.0 - 0.1 [facility] x10(3)/[facility] LABORATORY Immature Gran % 9.70 % [facility] LABORATORY Comment: Immature granulocytes(IG's)percentage an d absolute count will include metamyelocytes, myelocytes, and promyelo cytes. Blood smears from CBCs yielding IG's will be scanned manually for concor dance. If this scan disagrees with the automated IG or if promyelocytes are not ed, a manual differential will be performed. Gemini Gran Abs 3.09 (H) 0.00 - 0.04 x10(3)/[facility] LABORATORY Specimen Anatomical Collection Method Collection Time Receive d Time (Source) Location / / Volume Laterality Blood 02/04/2022 4:21 AM 4:24 EDT AM EDT Resulting Agency Comment Spec In Lab Dilcia Lopez MD HEMATOLOGY ORDERABLES Performing Organization Address City/State/[place] [address] (ABNORMAL) Hemogram (02/04/2022 4:21 AM EDT) P athologist Signature WBC 31.9 4.0 - 9.5 [facility] (Critical) x10(3)/[facility] LABORATORY Comment: This result has been called to NIKKI SANZ by Nicki Bazzi on 02 04 2022 at 0434, and has been read back. RBC 2.40 (L) 4.58 - 5.54 x10(6)/[facility] LABORATORY Hemoglobin 7.7 (L) 13.7 - 16.5 g/dL [facility] LABORATORY Hematocrit 21.4 (L) 40.5 - 48.5 % [facility] LABORATORY MCV 89.2 82.9 - 93.1 fL [facility] LABORATORY MCH 32.1 27.5 - 32.1 pg [facility] LABORATORY MCHC 36.0 (H) 32.0 - 35.7 g/dL [facility] LABORATORY Platelets 303 145 - 357 x10(3)/[facility] LABORATORY RDWSD 46.1 (H) 36.0 - 45.0 [facility] LABORATORY RDWCV 14.6 (H) 11.4 - 13.8 % [facility] LABORATORY MPV 9.8 7.6 - 12.9 [facility] LABORATORY nRBC % Auto 0.0 % [facility] LABORATORY nRBC Abs Auto 0.000 0.000 - 0.000 x10(3)/[facility] LABORATORY Specimen Anatomical Collection Method Collection Time Receive d Time (Source) Location / / Volume Laterality Blood 02/04/2022 4:21 AM 4:24 EDT AM EDT Resulting Agency Comment Spec In Lab Dilcia Lopez MD HEMATOLOGY ORDERABLES Performing Organization Address City/State/[place] [address] (ABNORMAL) Basic Metabolic Panel (non-fasting) (02/04/2022 4:21 AM EDT) athologist Signature Glucose Lvl 100 65 - 199 [facility] mg/dL [facility] LABORATORY Comment: Diabetes: >=200 mg/dL plus symp toms BUN 64 (H) 10 - 20 mg/dL [facility] LABORATORY Creatinine 5.55 (H) 0.80 - 1.50 mg/dL [facility] LABORATORY Comment: result rechecked-KS Sodium 120 (L) 135 - 145 mmol/L [facility] LABORATORY Potassium 5.7 (H) 3.5 - 5.0 mmol/L [facility] LABORATORY Comment: Please note: ??Patients with WBC >100,00 0 may have falsely elevated Potassium levels. ??For accurate Potassium quantif ication in these patients send serum separator tube (gold top) for subsequent determinations. ??Contact the Clinical Chemistry Laboratory if there are any qu estions. Chloride 91 (L) 98 - 107 mmol/L [facility] LABORATORY CO2 19 (L) 22 - 31 mmol/L [facility] LABORATORY Anion Gap 10 5 - 15 mmol/L [facility] LABORATORY Calcium 6.3 (Critical) 8.5 - 10.5 mg/dL [facility] LABORATORY Comment: called by KS/read back by Yessi Esteves / 02/04/22 0513 Estimated GFR 13 (L) >=60 mL/min/1.73 m?? [facility] LABORATORY Comment: This patient's estimated [...] Organization Address City/State/[place] [address] (ABNORMAL) Phosphorus (02/04/2022 4:21 AM EDT) P athologist Signature Phosphorus 7.5 (H) 2.5 - 4.5 [facility] mg/dL [facility] LABORATORY Specimen Anatomical Collection Method Collection Time Receive d Time (Source) Location / / Volume Laterality Blood 02/04/2022 4:21 AM 2 4:24 EDT AM EDT Resulting Agency Comment Spec In Lab Gela Novak MD CHEMISTRY ORDERABLES Performing Organization Address City/[facility]/ZIP Code Phon e Number [address] Magnesium (02/04/2022 4:21 AM EDT) athologist Signature Magnesium 0.88 0.69 - 1.07 [facility] mmol/L [facility] LABORATORY Specimen Anatomical Collection Method Collection Time Receive d Time (Source) Location / / Volume Laterality Blood 02/04/2022 4:21 AM 2 4:24 EDT AM EDT Resulting Agency Comment Spec In Lab Gela Novak MD CHEMISTRY ORDERABLES Performing Organization Address City/[facility]/ZIP Code [place] [address] Transfuse RBC (02/03/2022 6:36 PM EDT) Dilcia Lpoez MD NURSING TREATMENT ORDERABLES - BLOOD ADMIN Transfuse RBC (02/03/2022 6:36 PM EDT) Dilcia Lopez MD NURSING TREATMENT ORDERABLES - BLOOD ADMIN POCT Glucose (02/03/2022 3:40 PM EDT) athologist Signature POC Glucose 127 65 - 199 [facility] mg/dL [facility] LABORATORY Comment: Supplemental ranges: <140 mg/dL before meals <180 mg/dL all other times of the day Specimen Anatomical Collection Method Collection Time Receive d Time (Source) Location / / Volume Laterality Blood 02/03/2022 3:40 PM 2 3:40 EDT PM EDT Dilcia Lopez MD POINT OF CARE TEST ORDERABLE S Performing Organization Address City/[facility]/[place] [address] Prepare RBC (02/03/2022 3:20 PM EDT) athologist Signature Dispensed? No [facility] LABORATORY Specimen Anatomical Collection Method Collection Time Receive d Time (Source) Location / / Volume Laterality Blood 02/03/2022 3:20 PM 3:19 EDT PM EDT Dilcia Lopez MD BLOOD BANK ORDERABLES Performing Organization Address City/State/[place] [address] (ABNORMAL) Hemogram (02/03/2022 2:15 PM EDT) athologist Signature WBC 30.1 4.0 - 9.5 [facility] (Critical) x10(3)/[facility] LABORATORY Comment: This result has been called to VINOD WILCOX by Sarah Robison on 02 03 2022 at 1432, and has been read ba ck. RBC 2.14 (L) 4.58 - 5.54 x10(6)/[facility] LABORATORY Hemoglobin 6.8 (L) 13.7 - 16.5 g/dL [facility] LABORATORY Hematocrit 19.4 (L) 40.5 - 48.5 % [facility] LABORATORY MCV 90.7 82.9 - 93.1 fL [facility] LABORATORY MCH 31.8 27.5 - 32.1 pg [facility] LABORATORY MCHC 35.1 32.0 - 35.7 g/dL [facility] LABORATORY Platelets 333 145 - 357 x10(3)/[facility] [facility] LABORATORY RDWSD 45.9 (H) 36.0 - 45.0 fL [facility] LABORATORY RDWCV 14.2 (H) 11.4 - 13.8 % [facility] LABORATORY MPV 10.0 7.6 - 12.9 fL [facility] LABORATORY nRBC % Auto 0.0 % [facility] LABORATORY nRBC Abs Auto 0.000 0.000 - 0.000 x10(3)/mcL M [facility] LABORATORY Specimen Anatomical Collection Method Collection Time Receive d Time (Source) Location / / Volume Laterality Blood 02/03/2022 2:15 PM 2:21 EDT PM EDT Resulting Agency Comment Spec In Lab Dilcia Lopez MD HEMATOLOGY ORDERABLES Performing Organization Address City/[facility]/ZIP [place] [address] Transfuse RBC (02/03/2022 11:43 AM EDT) Raimundo Lara MD NURSING TREATMENT ORDER JT - BLOOD ADMIN Transfuse RBC (02/03/2022 11:43 AM EDT) Raimundo Lara MD NURSING TREATMENT ORDER JT - BLOOD ADMIN POCT Glucose (02/03/2022 11:42 AM EDT) P athologist Signature POC Glucose 129 65 - 199 [facility] mg/dL [facility] LABORATORY Comment: Supplemental ranges: <140 mg/dL before meals <180 mg/dL all other times of the day Specimen Anatomical Collection Method Collection Time Receive d Time (Source) Location / / Volume Laterality Blood 02/03/2022 11:42 02/03/2022 AM EDT 11:42 AM EDT Erika Retana MD POINT OF CARE TEST ORDERABLE S Performing Organization Address City/[facility]/ZIP [place] [address] Duplex for DVT, Arm, Unilat (02/03/2022 9:07 AM EDT) Component Value Ref Test Analysis Performed At Patholo gist Range Method Time Signature VB Text Department: Vascular Surgery Lab VASCUBASE Report Patient: [id number] (ALIX HOLLAND) CPT: 28690 Referring Physician: AGNIESZKA LÓPEZ ?? Phone: Indications: [...] Component Value Ref Test Analysis Performed At [facility] gist Range Method Time Signature VB Text Department: Vascular Surgery Lab VASCUBASE Report Patient: [id number] (ALIX HOLLAND) CPT: 26489 Referring Physician: AGNIESZKA LÓPEZ ?? Phone: Indications: [...] Signature POC Glucose 128 65 - 199 [facility] mg/dL [facility] LABORATORY Comment: Supplemental ranges: <140 mg/dL before meals <180 mg/dL all other times of the day Specimen Anatomical Collection Method Collection Time Receive d Time (Source) Location / / Volume Laterality Blood 02/03/2022 8:17 AM 8:17 EDT AM EDT Erika Retana MD POINT OF CARE TEST ORDERABLE S Performing Organization Address City/[facility]/[place] [address] Prepare RBC (02/03/2022 7:51 AM EDT) athologist Signature Dispensed? Yes [facility] LABORATORY Specimen Anatomical Collection Method Collection Time Receive d Time (Source) Location / / Volume Laterality Blood No Charge / 02/03/2022 7:51 AM 2 7:51 Unknown EDT AM EDT Resulting Agency Comment Spec In Lab Raimundo Lara MD BLOOD BANK ORDERABLES Performing Organization Address City/[facility]/ZIP Code [place] [address] Prepare RBC (02/03/2022 7:45 AM EDT) P athologist Signature Dispensed? Yes [facility] LABORATORY Specimen Anatomical Collection Method Collection Time Receive d Time (Source) Location / / Volume Laterality Blood 02/03/2022 7:45 AM 2 7:42 EDT AM EDT Raimundo Lara MD BLOOD BANK ORDERABLES Performing Organization Address [facility]/ZIP Code [place] [address] (ABNORMAL) Hemoglobin and Hematocrit, blood (02/03/2022 6:47 AM EDT) P athologist Signature Hemoglobin 5.6 13.7 - [facility] (Critical) 16.5 g/dL [facility] LABORATORY Comment: This result has been called to EMANI HESS by Sarah Robison on 02 03 2022 at 0738, and has been read back. Hematocrit 16.0 (L) 40.5 - 48.5 % [facility] LABORATORY Specimen Anatomical Collection Method Collection Time Receive d Time (Source) Location / / Volume Laterality Blood 02/03/2022 6:47 AM 2 7:05 EDT AM EDT Resulting Agency Comment Spec In Lab Raimundo Lara MD HEMATOLOGY ORDERABLES Performing Organization Address City/[facility]/ZIP [facility] [place] [address] Scan, Peripheral Blood (02/03/2022 4:55 AM EDT) Patholo gist Method Time Signature Plat Estimate Normal [facility] LABORATORY RBC Morphology Abnormal [facility] LABORATORY Macrocytes 1-5 /HPF [facility] LABORATORY Microcytes 1-5 /HPF [facility] LABORATORY Stippled RBCs Present >1/HPF [facility] LABORATORY Specimen Anatomical Collection Method Collection Time Receive d Time (Source) Location / / Volume Laterality Blood 02/03/2022 4:55 AM 5:09 EDT AM EDT Resulting Agency Comment Spec In Lab Dimas Hernandez MD HEMATOLOGY ORDERABLES Performing Organization Address City/State/[place] [address] (ABNORMAL) Differential, Automated (02/03/2022 4:55 AM EDT) [employer] Method Time Signature Neutrophils % 68.7 % [facility] LABORATORY Neutr Abs (ANC) 21.19 (H) 1.70 - [facility] 6.10 [facility] x10(3)/[facility] LABORATORY Lymphocytes % 10.5 % [facility] LABORATORY Lymphocytes Abs 3.2 0.9 - 3.2 [facility] x10(3)/[facility] LABORATORY Monocytes % 8.7 % [facility] LABORATORY Monocyte Abs 2.7 (H) 0.3 - 0.9 [facility] x10(3)/[facility] LABORATORY Eosinophils % 1.6 % [facility] LABORATORY Eosinophils Abs 0.5 (H) 0.0 - 0.4 [facility] x10(3)/[facility] LABORATORY Basophils % 0.3 % [facility] LABORATORY Basophils Abs 0.1 0.0 - 0.1 [facility] x10(3)/[facility] LABORATORY Immature Gran % 10.20 % [facility] LABORATORY Comment: Immature granulocytes(IG's)percentage an d absolute count will include metamyelocytes, myelocytes, and promyelo cytes. Blood smears from CBCs yielding IG's will be scanned manually for concor dance. If this scan disagrees with the automated IG or if promyelocytes are not ed, a manual differential will be performed. Gemini Gran Abs 3.13 (H) 0.00 - 0.04 x10(3)/[facility] LABORATORY Specimen Anatomical Collection Method Collection Time Receive d Time (Source) Location / / Volume Laterality Blood 02/03/2022 4:55 AM 5:09 EDT AM EDT Resulting Agency Comment Spec In Lab Dimas Hernandez MD HEMATOLOGY ORDERABLES Performing Organization Address City/State/[place] [address] (ABNORMAL) Hemogram (02/03/2022 4:55 AM EDT) athologist Signature WBC 30.8 4.0 - 9.5 [facility] (Critical) x10(3)/[facility] LABORATORY Comment: This result has been called to HALLEY HO by Maureen Dixon on 02 03 2022 at 0555, and has been read back. RBC 1.72 (L) 4.58 - 5.54 x10(6)/[facility] LABORATORY Hemoglobin 5.6 (Critical) 13.7 - 16.5 g/dL [facility] LABORATORY Comment: This result has been called to HALLEY HO by Maureen Dixon on 02 03 2022 at 0555, and has been read back. Hematocrit 15.9 (L) 40.5 - 48.5 % [facility] LABORATORY MCV 92.4 82.9 - 93.1 [facility] LABORATORY MCH 32.6 (H) 27.5 - 32.1 pg [facility] LABORATORY MCHC 35.2 32.0 - 35.7 g/dL [facility] LABORATORY Platelets 310 145 - 357 x10(3)/[facility] LABORATORY RDWSD 45.4 (H) 36.0 - 45.0 [facility] LABORATORY RDWCV 14.2 (H) 11.4 - 13.8 % [facility] LABORATORY MPV 10.2 7.6 - 12.9 [facility] LABORATORY nRBC % Auto 0.0 % [facility] LABORATORY nRBC Abs Auto 0.000 0.000 - 0.000 x10(3)/mcL M [facility] LABORATORY Specimen Anatomical Collection Method Collection Time Receive d Time (Source) Location / / Volume Laterality Blood 02/03/2022 4:55 AM 5:09 EDT AM EDT Resulting Agency Comment Spec In Lab Dimas Hernandez MD HEMATOLOGY ORDERABLES Performing Organization Address City/State/[place] [address] (ABNORMAL) Basic Metabolic Panel (non-fasting) (02/03/2022 4:55 AM EDT) athologist Signature Glucose Lvl 117 65 - 199 [facility] mg/dL [facility] LABORATORY Comment: Diabetes: >=200 mg/dL plus symp toms BUN 53 (H) 10 - 20 mg/dL [facility] LABORATORY Creatinine 4.40 (H) 0.80 - 1.50 mg/dL [facility] LABORATORY Sodium 123 (L) 135 - 145 mmol/L [facility] LABORATORY Potassium 5.2 (H) 3.5 - 5.0 mmol/L [facility] LABORATORY Comment: Please note: ??Patients with WBC >100,00 0 may have falsely elevated Potassium levels. ??For accurate Potassium quantif ication in these patients send serum separator tube (gold top) for subsequent determinations. ??Contact the Clinical Chemistry Laboratory if there are any qu estions. Chloride 93 (L) 98 - 107 mmol/L [facility] LABORATORY CO2 22 22 - 31 mmol/L [facility] LABORATORY Anion Gap 8 5 - 15 mmol/L [facility] LABORATORY Calcium 6.3 (Critical) 8.5 - 10.5 mg/dL [facility] LABORATORY Comment: Called by: , Read back by: Kerwin George, Date/Time:02/03/22 05:46. Estimated GFR 18 (L) >=60 mL/min/1.73 m?? [facility] LABORATORY Comment: This patient's estimated [...] Han DO CHEMISTRY ORDERABLES Performing Organization Address City/[facility]/ZIP Code Phon e Number [address] (ABNORMAL) Phosphorus (02/03/2022 4:55 AM EDT) P athologist Signature Phosphorus 6.4 (H) 2.5 - 4.5 [facility] mg/dL [facility] LABORATORY Specimen Anatomical Collection Method Collection Time Receive d Time (Source) Location / / Volume Laterality Blood 02/03/2022 4:55 AM 2 5:09 EDT AM EDT Resulting Agency Comment Spec In Lab Gela Novak MD CHEMISTRY ORDERABLES Performing Organization Address City/[facility]/ZIP Code [place] [address] Magnesium (02/03/2022 4:55 AM EDT) P athologist Signature Magnesium 0.84 0.69 - 1.07 [facility] mmol/L [facility] LABORATORY Specimen Anatomical Collection Method Collection Time Receive d Time (Source) Location / / Volume Laterality Blood 02/03/2022 4:55 AM 2 5:09 EDT AM EDT Resulting Agency Comment Spec In Lab Gela Novak MD CHEMISTRY ORDERABLES Performing Organization Address City/State/ZIP [place] [address] Vitamin B12 (02/03/2022 4:55 AM EDT) athologist Signature Vitamin B-12 535 232 - 1,245 [facility] pg/mL [facility] LABORATORY Specimen Anatomical Collection Method Collection Time Receive d Time (Source) Location / / Volume Laterality Blood 02/03/2022 4:55 AM 2 5:09 EDT AM EDT Resulting Agency Comment Spec In Lab Erika Retana MD CHEMISTRY ORDERABLES Performing Organization Address City/State/ZIP [place] [address] (ABNORMAL) Folate, serum (02/03/2022 4:55 AM EDT) athologist Signature Folate Lvl 3.9 (L) 4.8 - 24.2 [facility] ng/mL [facility] LABORATORY Specimen Anatomical Collection Method Collection Time Receive d Time (Source) Location / / Volume Laterality Blood 02/03/2022 4:55 AM 2 5:09 EDT AM EDT Resulting Agency Comment Spec In Lab Erika Retana MD CHEMISTRY ORDERABLES Performing Organization Address City/State/ZIP Code [place] [address] POCT Glucose (02/02/2022 4:08 PM EDT) athologist Signature POC Glucose 135 65 - 199 [facility] mg/dL [facility] LABORATORY Comment: Supplemental ranges: <140 mg/dL before meals <180 mg/dL all other times of the day Specimen Anatomical Collection Method Collection Time Receive d Time (Source) Location / / Volume Laterality Blood 02/02/2022 4:08 PM 2 4:08 EDT PM EDT Evangelina Flynn MD POINT OF CARE TEST ORDERABLE S Performing Organization Address City/State/ZIP [place] [address] (ABNORMAL) Hemogram (02/02/2022 12:40 PM EDT) athologist Signature WBC 33.6 4.0 - 9.5 [facility] (Critical) x10(3)/[facility] LABORATORY Comment: This result has been called to BHARAT MOREL CIA by Galdino Bynum on 02 02 2022 at 1255, and has been read back. RBC 2.29 (L) 4.58 - 5.54 x10(6)/[facility] LABORATORY Hemoglobin 7.4 (L) 13.7 - 16.5 g/dL [facility] LABORATORY Hematocrit 20.9 (L) 40.5 - 48.5 % [facility] LABORATORY MCV 91.3 82.9 - 93.1 [facility] LABORATORY MCH 32.3 (H) 27.5 - 32.1 pg [facility] LABORATORY MCHC 35.4 32.0 - 35.7 g/dL [facility] LABORATORY Platelets 278 145 - 357 x10(3)/[facility] LABORATORY RDWSD 44.7 36.0 - 45.0 [facility] LABORATORY RDWCV 13.9 (H) 11.4 - 13.8 % [facility] LABORATORY MPV 10.2 7.6 - 12.9 [facility] LABORATORY nRBC % Auto 0.0 % [facility] LABORATORY nRBC Abs Auto 0.000 0.000 - 0.000 x10(3)/[facility] LABORATORY Specimen Anatomical Collection Method Collection Time Receive d Time (Source) Location / / Volume Laterality Blood 02/02/2022 12:40 02/02/2022 PM EDT 12:47 PM EDT Resulting Agency Comment Spec In Lab Beck Sanz MD HEMATOLOGY ORDERABLES Performing Organization Address City/State/[place] [address] POCT Glucose (02/02/2022 7:57 AM EDT) athologist Signature POC Glucose 113 65 - 199 [facility] mg/dL [facility] LABORATORY Comment: Supplemental ranges: <140 mg/dL before meals <180 mg/dL all other times of the day Specimen Anatomical Collection Method Collection Time Receive d Time (Source) Location / / Volume Laterality Blood 02/02/2022 7:57 AM 7:57 EDT AM EDT Evangelina Flynn MD POINT OF CARE TEST ORDERABLE S Performing Organization Address City/[facility]/ZIP Code Phon e Number [address] (ABNORMAL) Iron and TIBC (02/02/2022 2:29 AM EDT) [facility] Signature Iron 41 (L) 45 - 160 [facility] mcg/dL [facility] LABORATORY TIBC 149 (L) 250 - 450 [facility] mcg/dL [facility] LABORATORY Iron Saturation 28 20 - 50 % [facility] LABORATORY Specimen Anatomical Collection Method Collection Time Receive d Time (Source) Location / / Volume Laterality Blood Venous Draw / 02/02/2022 2:29 AM 02/03/20 22 2:34 Unknown EDT AM EDT Resulting Agency Comment Spec In Lab Vidhya Peñaloza MD CHEMISTRY ORDERABLES Performing Organization Address City/[facility]/ZIP Code Phon e Number [address] (ABNORMAL) Differential, Automated (02/02/2022 2:29 AM EDT) [facility] Method Time Signature Neutrophils % 69.5 % [facility] LABORATORY Neutr Abs (ANC) 21.20 (H) 1.70 - [facility] 6.10 [facility] x10(3)/[facility] LABORATORY Lymphocytes % 11.0 % [facility] LABORATORY Lymphocytes Abs 3.3 (H) 0.9 - 3.2 [facility] x10(3)/[facility] LABORATORY Monocytes % 8.4 % [facility] LABORATORY Monocyte Abs 2.6 (H) 0.3 - 0.9 [facility] x10(3)/[facility] LABORATORY Eosinophils % 1.6 % [facility] LABORATORY Eosinophils Abs 0.5 (H) 0.0 - 0.4 [facility] x10(3)/[facility] LABORATORY Basophils % 0.5 % [facility] LABORATORY Basophils Abs 0.1 0.0 - 0.1 [facility] x10(3)/[facility] LABORATORY Immature Gran % 9.00 % [facility] LABORATORY Comment: Immature granulocytes(IG's)percentage an d absolute count will include metamyelocytes, myelocytes, and promyelo cytes. Blood smears from CBCs yielding IG's will be scanned manually for concor dance. If this scan disagrees with the automated IG or if promyelocytes are not ed, a manual differential will be performed. Gemini Gran Abs 2.75 (H) 0.00 - 0.04 x10(3)/[facility] LABORATORY Specimen Anatomical Collection Method Collection Time Receive d Time (Source) Location / / Volume Laterality Blood 02/02/2022 2:29 AM 2:33 EDT AM EDT Resulting Agency Comment Spec In Lab Dimas Hernandez MD HEMATOLOGY ORDERABLES Performing Organization Address City/State/[place] [address] (ABNORMAL) Hemogram (02/02/2022 2:29 AM EDT) P athologist Signature WBC 30.5 4.0 - 9.5 [facility] (Critical) x10(3)/[facility] LABORATORY Comment: This result has been called to CARLOS TUBBS by GAMA THOMPSON on 02 02 2022 at 0245, and has been read back. RBC 2.18 (L) 4.58 - 5.54 x10(6)/[facility] LABORATORY Hemoglobin 7.0 (L) 13.7 - 16.5 g/dL [facility] LABORATORY Hematocrit 20.6 (L) 40.5 - 48.5 % [facility] LABORATORY MCV 94.5 (H) 82.9 - 93.1 fL [facility] LABORATORY MCH 32.1 27.5 - 32.1 pg [facility] LABORATORY MCHC 34.0 32.0 - 35.7 g/dL [facility] LABORATORY Platelets 245 145 - 357 x10(3)/[facility] LABORATORY RDWSD 46.5 (H) 36.0 - 45.0 [facility] LABORATORY RDWCV 13.7 11.4 - 13.8 % [facility] LABORATORY MPV 10.3 7.6 - 12.9 [facility] LABORATORY nRBC % Auto 0.0 % [facility] LABORATORY nRBC Abs Auto 0.000 0.000 - 0.000 x10(3)/[facility] LABORATORY Specimen Anatomical Collection Method Collection Time Receive d Time (Source) Location / / Volume Laterality Blood 02/02/2022 2:29 AM 2 2:33 EDT AM EDT Resulting Agency Comment Spec In Lab Dimas Hernandez MD HEMATOLOGY ORDERABLES Performing Organization Address City/State/[place] [address] (ABNORMAL) Basic Metabolic Panel (non-fasting) (02/02/2022 2:29 AM EDT) P athologist Signature Glucose Lvl 107 65 - 199 [facility] mg/dL [facility] LABORATORY Comment: Diabetes: >=200 mg/dL plus symp toms BUN 63 (H) 10 - 20 mg/dL [facility] LABORATORY Creatinine 4.78 (H) 0.80 - 1.50 mg/dL [facility] LABORATORY Sodium 127 (L) 135 - 145 mmol/L [facility] LABORATORY Potassium 5.2 (H) 3.5 - 5.0 mmol/L [facility] LABORATORY Comment: Please note: ??Patients with WBC >100,00 0 may have falsely elevated Potassium levels. ??For accurate Potassium quantif ication in these patients send serum separator tube (gold top) for subsequent determinations. ??Contact the Clinical Chemistry Laboratory if there are any qu estions. Chloride 97 (L) 98 - 107 mmol/L [facility] LABORATORY CO2 20 (L) 22 - 31 mmol/L [facility] LABORATORY Anion Gap 10 5 - 15 mmol/L [facility] LABORATORY Calcium 6.8 (Critical) 8.5 - 10.5 mg/dL [facility] LABORATORY Comment: Called by: kvng, Read back by: ashley george, Date/Time:02/02/22 03:11. Estimated GFR 16 (L) >=60 mL/min/1.73 m?? [facility] LABORATORY Comment: This patient's estimated [...] Organization Address City/State/ZIP [place] [address] (ABNORMAL) Phosphorus (02/02/2022 2:29 AM EDT) P athologist Signature Phosphorus 5.7 (H) 2.5 - 4.5 [facility] mg/dL [facility] LABORATORY Specimen Anatomical Collection Method Collection Time Receive d Time (Source) Location / / Volume Laterality Blood 02/02/2022 2:29 AM 2 2:33 EDT AM EDT Resulting Agency Comment Spec In Lab Gela Novak MD CHEMISTRY ORDERABLES Performing Organization Address City/State/[place] [address] [facility] LAB[address]ORY Drive Magnesium (02/02/2022 2:29 AM EDT) athologist Signature Magnesium 0.95 0.69 - 1.07 [facility] mmol/L [facility] LABORATORY Specimen Anatomical Collection Method Collection Time Receive d Time (Source) Location / / Volume Laterality Blood 02/02/2022 2:29 AM 2 2:33 EDT AM EDT Resulting Agency Comment Spec In Lab Gela Novak MD CHEMISTRY ORDERABLES Performing Organization Address City/State/ZIP Code Phon e Number [address] (ABNORMAL) Hemogram (02/01/2022 6:15 PM EDT) athologist Signature WBC 30.4 4.0 - 9.5 [facility] (Critical) x10(3)/[facility] LABORATORY Comment: This result has been called to FOREST HUFFMAN by Pretty Luna on 02 01 2022 at 1911, and has been read back. RBC 2.33 (L) 4.58 - 5.54 x10(6)/[facility] LABORATORY Hemoglobin 7.7 (L) 13.7 - 16.5 g/dL [facility] LABORATORY Hematocrit 21.9 (L) 40.5 - 48.5 % [facility] LABORATORY MCV 94.0 (H) 82.9 - 93.1 fL [facility] LABORATORY MCH 33.0 (H) 27.5 - 32.1 pg [facility] LABORATORY MCHC 35.2 32.0 - 35.7 g/dL [facility] LABORATORY Platelets 220 145 - 357 x10(3)/[facility] LABORATORY RDWSD 44.9 36.0 - 45.0 [facility] LABORATORY RDWCV 13.3 11.4 - 13.8 % [facility] LABORATORY MPV 10.8 7.6 - 12.9 fL [facility] LABORATORY nRBC % Auto 0.0 % [facility] LABORATORY nRBC Abs Auto 0.000 0.000 - 0.000 x10(3)/mcL [facility] LABORATORY Specimen Anatomical Collection Method Collection Time Receive d Time (Source) Location / / Volume Laterality Blood 02/01/2022 6:15 PM 2 6:29 EDT PM EDT Resulting Agency Comment Spec In Lab Jorge L Ernst [employer] HEMATOLOGY ORDERABLES Performing Organization Address City/State/[place] [address] (ABNORMAL) Basic Metabolic Panel (non-fasting) (02/01/2022 6:15 PM EDT) athologist Signature Glucose Lvl 121 65 - 199 [facility] mg/dL [facility] LABORATORY Comment: Diabetes: >=200 mg/dL plus symp toms BUN 56 (H) 10 - 20 mg/dL [facility] LABORATORY Creatinine 4.21 (H) 0.80 - 1.50 mg/dL [facility] LABORATORY Sodium 127 (L) 135 - 145 mmol/L [facility] LABORATORY Potassium 5.1 (H) 3.5 - 5.0 mmol/L [facility] LABORATORY Comment: Please note: ??Patients with WBC >100,00 0 may have falsely elevated Potassium levels. ??For accurate Potassium quantif ication in these patients send serum separator tube (gold top) for subsequent determinations. ??Contact the Clinical Chemistry Laboratory if there are any qu estions. Chloride 96 (L) 98 - 107 mmol/L [facility] LABORATORY CO2 21 (L) 22 - 31 mmol/L [facility] LABORATORY Anion Gap 10 5 - 15 mmol/L [facility] LABORATORY Calcium 7.2 (L) 8.5 - 10.5 mg/dL [facility] LABORATORY Estimated GFR 19 (L) >=60 mL/min/1.73 m?? [facility] LABORATORY Comment: This patient's estimated [...] Ernst APRN CHEMISTRY ORDERABLES Performing Organization Address City/[facility] [place] [address] Transfuse RBC (02/01/2022 5:16 PM EDT) Jorge L Ernst APRN NURSING TREATMENT ORDERABLES - BLOOD ADMIN Transfuse RBC (02/01/2022 5:16 PM EDT) Jorge L Ernst APRN NURSING TREATMENT ORDERABLES - BLOOD ADMIN (ABNORMAL) C. Difficile Screen (02/01/2022 1:55 PM EDT) [employer] Method Time Signature C Diff Screen Positive (A) Negative [facility] LABORATORY Comment: PCR Pos C. [...] - GENERAL ORDER JT Performing Organization Address City/[facility]/ZIP [place] [address] Type and Screen Validity (02/01/2022 12:45 PM EDT) [employer] Method Time Signature T&S only valid [facility] JOSH GILMORE at [facility] LABORATORY Comment: This Type and Screen result is only valid at the [facility] Specimen Anatomical Collection Method Collection Time Receive d Time (Source) Location / / Volume Laterality Blood 02/01/2022 12:45 02/01/2022 PM EDT 12:46 PM EDT Resulting Agency Comment Spec In Lab Jorge L Ernst APRN BLOOD BANK ORDERABLES Performing Organization Address City/[facility]/ZIP Code Phon e Number [address] ABORH Recheck Status (02/01/2022 12:45 PM EDT) [employer] Method Time Signature ABORH Type Completed [facility] LABORATORY Specimen Anatomical Collection Method Collection Time Receive d Time (Source) Location / / Volume Laterality Blood 02/01/2022 12:45 02/01/2022 PM EDT 12:46 PM EDT Resulting Agency Comment Spec In Lab Jorge L Ernst [employer] BLOOD BANK ORDERABLES Performing Organization Address City/[facility]/ZIP [place] [address] Antibody screen (02/01/2022 12:45 PM EDT) [employer] Method [place] Signature Ab Screen Negative [facility] LABORATORY Expires at 02/04/2022 JOSH GILMORE [id number] on: [facility] LABORATORY Specimen Anatomical Collection Method Collection Time Receive d Time (Source) Location / / Volume Laterality Blood 02/01/2022 12:45 02/01/2022 PM EDT 12:46 PM EDT Resulting Agency Comment Spec In Lab Jorge L Melita Ernst APRN BLOOD BANK ORDERABLES Performing Organization Address City/[facility]/ZIP [place] [address] ABO/Rh Typing (02/01/2022 12:45 PM EDT) athologist Signature ABORh Type A Pos [facility] LABORATORY Specimen Anatomical Collection Method Collection Time Receive d Time (Source) Location / / Volume Laterality Blood 02/01/2022 12:45 02/01/2022 PM EDT 12:46 PM EDT Resulting Agency Comment Spec In Lab Jorge L Singletaryault [employer] BLOOD BANK ORDERABLES Performing Organization Address City/[facility]/ZIP [facility] Phon e Number [address] Prepare RBC (02/01/2022 12:05 PM EDT) athologist Signature Dispensed? Yes [facility] LABORATORY Specimen Anatomical Collection Method Collection Time Receive d Time (Source) Location / / Volume Laterality Blood 02/01/2022 12:05 02/01/2022 PM EDT 12:15 PM EDT Jorge L Ernst [employer] BLOOD BANK ORDERABLES Performing Organization Address City/[facility]/ZIP [place] [address] (ABNORMAL) Basic Metabolic Panel (non-fasting) (02/01/2022 11:42 AM EDT) athologist Signature Glucose Lvl 106 65 - 199 [facility] mg/dL [facility] LABORATORY Comment: Diabetes: >=200 mg/dL plus symp toms BUN 49 (H) 10 - 20 mg/dL [facility] LABORATORY Creatinine 3.84 (H) 0.80 - 1.50 mg/dL [facility] LABORATORY Sodium 129 (L) 135 - 145 mmol/L [facility] LABORATORY Potassium 5.1 (H) 3.5 - 5.0 mmol/L [facility] LABORATORY Comment: Please note: ??Patients with WBC >100,00 0 may have falsely elevated Potassium levels. ??For accurate Potassium quantif ication in these patients send serum separator tube (gold top) for subsequent determinations. ??Contact the Clinical Chemistry Laboratory if there are any qu estions. Chloride 98 98 - 107 mmol/L [facility] LABORATORY CO2 21 (L) 22 - 31 mmol/L [facility] Anion Gap 10 5 - 15 mmol/L [facility] LABORATORY Calcium 7.6 (L) 8.5 - 10.5 mg/dL [facility] LABORATORY Estimated GFR 21 (L) >=60 mL/min/1.73 m?? [facility] LABORATORY Comment: This patient's estimated [...] Organization Address City/State/[place] [address] (ABNORMAL) Hemogram (02/01/2022 11:42 AM EDT) P athologist Signature WBC 36.0 4.0 - 9.5 [facility] (Critical) x10(3)/[facility] LABORATORY Comment: This result has been called to DONTA SY by MARCIA KIMBALL on 02 01 2022 at 1154, and has been read back. RBC 1.98 (L) 4.58 - 5.54 x10(6)/[facility] LABORATORY Hemoglobin 6.4 (L) 13.7 - 16.5 g/dL [facility] LABORATORY Hematocrit 18.5 (L) 40.5 - 48.5 % [facility] LABORATORY MCV 93.4 (H) 82.9 - 93.1 fL [facility]ORATORY MCH 32.3 (H) 27.5 - 32.1 pg [facility] LABORATORY MCHC 34.6 32.0 - 35.7 g/dL [facility] LABORATORY Platelets 239 145 - 357 x10(3)/[facility] LABORATORY RDWSD 45.0 36.0 - 45.0 fL [facility] LABORATORY RDWCV 13.7 11.4 - 13.8 % [facility] LABORATORY MPV 10.6 7.6 - 12.9 fL [facility] LABORATORY nRBC % Auto 0.0 % [facility] LABORATORY nRBC Abs Auto 0.000 0.000 - 0.000 x10(3)/[facility] LABORATORY Specimen Anatomical Collection Method Collection Time Receive d Time (Source) Location / / Volume Laterality Blood 02/01/2022 11:42 02/01/2022 AM EDT 11:46 AM EDT Resulting Agency Comment Spec In Lab Beck Sanz MD HEMATOLOGY ORDERABLES Performing Organization Address City/State/ZIP Code Phon e Number [address] POCT Glucose (02/01/2022 10:42 AM EDT) P athologist Signature POC Glucose 119 65 - 199 [facility] mg/dL [facility] LABORATORY Comment: Supplemental ranges: <140 mg/dL before meals <180 mg/dL all other times of the day Specimen Anatomical Collection Method Collection Time Receive d Time (Source) Location / / Volume Laterality Blood 02/01/2022 10:42 02/01/2022 AM EDT 10:42 AM EDT Beck Sanz MD POINT OF CARE TEST ORDERABLE S Performing Organization Address City/State/ZIP Code Phon e Number [address] Blood culture (02/01/2022 6:35 AM EDT) Patholo gist Method Time Signature Blood Culture No growth JOSH GILMORE at 5 days. [facility] LABORATORY Specimen Anatomical Collection Method Collection Time Receive d Time (Source) Location / / Volume Laterality Blood 02/01/2022 6:35 AM 2 9:38 EDT AM EDT Resulting Agency Comment Spec In Lab Beck Sanz MD MICROBIOLOGY - BLOOD ORDERAB LES Performing Organization Address City/[facility]/ZIP [facility] [place] [address] Blood culture (02/01/2022 6:25 AM EDT) Patholo gist Method Time Signature Blood Culture No growth JOSH GILMORE at 5 days. [facility] LABORATORY Specimen (Source) Anatomical Collection Method Collection Time Re ceived Time Location / / Volume Laterality Blood Pediatric 02/01/2022 6:25 2 9:38 AM EDT AM EDT Resulting Agency Comment Spec In Lab Beck Sanz MD MICROBIOLOGY - BLOOD ORDERAB LES Performing Organization Address [facility] [place] [address] (ABNORMAL) Calcium Ionized Whole Blood, HONORIO (02/01/2022 4:00 AM EDT) Analysis Performed At Patho logist Time Signature pH Honorio 7.43 (H) 7.32 - [facility] 7.42 [facility] LABORATORY ICa Whole 1.13 (L) 1.15 - [facility] Blood 1.33 [facility] mmol/L [facility] LABORATORY Comment: Note: ??Total bilirubin higher than 20 m g/dL may lead to falsely low ionized calcium. Specimen Anatomical Collection Method Collection Time Receive d Time (Source) Location / / Volume Laterality Blood ARTERIAL LINE / 02/01/2022 4:00 AM 2021 4:11 Unknown EDT AM EDT Resulting Agency Comment Spec In Lab Erika Retana MD CHEMISTRY ORDERABLES Performing Organization Address City/[facility]/ZIP [facility] [place] [address] (ABNORMAL) Hemogram (02/01/2022 4:00 AM EDT) P athologist Signature WBC 43.9 4.0 - 9.5 [facility] (Critical) x10(3)/[facility] LABORATORY Comment: This result has been called to GEENA AMBRIZ by Nicki Bazzi on 02 01 2022 at 0446, and has been read back. RBC 2.20 (L) 4.58 - 5.54 x10(6)/[facility] LABORATORY Hemoglobin 7.1 (L) 13.7 - 16.5 g/dL [facility] LABORATORY Hematocrit 20.3 (L) 40.5 - 48.5 % [facility] LABORATORY MCV 92.3 82.9 - 93.1 fL [facility] LABORATORY MCH 32.3 (H) 27.5 - 32.1 pg [facility] LABORATORY MCHC 35.0 32.0 - 35.7 g/dL [facility] LABORATORY Platelets 264 145 - 357 x10(3)/[facility] LABORATORY RDWSD 43.8 36.0 - 45.0 [facility] LABORATORY RDWCV 13.2 11.4 - 13.8 % [facility] LABORATORY MPV 10.7 7.6 - 12.9 fL [facility] LABORATORY nRBC % Auto 0.0 % [facility] LABORATORY nRBC Abs Auto 0.000 0.000 - 0.000 x10(3)/[facility] LABORATORY Specimen Anatomical Collection Method Collection Time Receive d Time (Source) Location / / Volume Laterality Blood 02/01/2022 4:00 AM 4:11 EDT AM EDT Resulting Agency Comment Spec In Lab Beck Sanz MD HEMATOLOGY ORDERABLES Performing Organization Address City/State/[place] [address] (ABNORMAL) Differential, Automated (02/01/2022 1:02 AM EDT) [facility] gist Method Time Signature Neutrophils % 73.9 % [facility] LABORATORY Neutr Abs (ANC) 30.91 (H) 1.70 - [facility] 6.10 MEMORIAL x10(3)/[facility] LABORATORY Lymphocytes % 7.5 % [facility] LABORATORY Lymphocytes Abs 3.1 0.9 - 3.2 [facility] x10(3)/[facility] LABORATORY Monocytes % 7.7 % [facility] LABORATORY Monocyte Abs 3.2 (H) 0.3 - 0.9 [facility] x10(3)/[facility] LABORATORY Eosinophils % 0.5 % [facility] LABORATORY Eosinophils Abs 0.2 0.0 - 0.4 [facility] x10(3)/[facility] LABORATORY Basophils % 0.4 % [facility] LABORATORY Basophils Abs 0.2 (H) 0.0 - 0.1 [facility] x10(3)/[facility] LABORATORY Immature Gran % 10.00 % [facility] LABORATORY Comment: Immature granulocytes(IG's)percentage an d absolute count will include metamyelocytes, myelocytes, and promyelo cytes. Blood smears from CBCs yielding IG's will be scanned manually for ny dannoe. If this scan disagrees with the automated IG or if promyelocytes are not ed, a manual differential will be performed. Gemini Gran Abs 4.18 (H) 0.00 - 0.04 x10(3)/[facility] LABORATORY Specimen Anatomical Collection Method Collection Time Receive d Time (Source) Location / / Volume Laterality Blood 02/01/2022 1:02 AM 2 1:13 EDT AM EDT Resulting Agency Comment Spec In Lab Dimas Hernandez MD HEMATOLOGY ORDERABLES Performing Organization Address City/State/[place] [address] (ABNORMAL) Hemogram (02/01/2022 1:02 AM EDT) P athologist Signature WBC 41.8 4.0 - 9.5 [facility] (Critical) x10(3)/[facility] LABORATORY Comment: This result has been called to PEPE SORENSON by Nicki Bazzi on 02 01 2022 at 0132, and has been read back. RBC 2.23 (L) 4.58 - 5.54 x10(6)/[facility] LABORATORY Hemoglobin 7.2 (L) 13.7 - 16.5 g/dL [facility] LABORATORY Hematocrit 20.6 (L) 40.5 - 48.5 % [facility] LABORATORY MCV 92.4 82.9 - 93.1 fL [facility] LABORATORY MCH 32.3 (H) 27.5 - 32.1 pg [facility] LABORATORY MCHC 35.0 32.0 - 35.7 g/dL [facility] LABORATORY Platelets 252 145 - 357 x10(3)/[facility] LABORATORY RDWSD 43.6 36.0 - 45.0 [facility] LABORATORY RDWCV 13.3 11.4 - 13.8 % [facility] LABORATORY MPV 10.8 7.6 - 12.9 fL [facility] LABORATORY nRBC % Auto 0.0 % [facility] LABORATORY nRBC Abs Auto 0.000 0.000 - 0.000 x10(3)/[facility] LABORATORY Specimen Anatomical Collection Method Collection Time Receive d Time (Source) Location / / Volume Laterality Blood 02/01/2022 1:02 AM 2 1:13 EDT AM EDT Resulting Agency Comment Spec In Lab Dimas Hernandez MD HEMATOLOGY ORDERABLES Performing Organization Address City/State/[place] [address] (ABNORMAL) Calcium Ionized Whole Blood, HONORIO (02/01/2022 1:02 AM EDT) Analysis Performed At Patho logist Time Signature pH Honorio 7.42 7.32 - [facility] 7.42 [facility] LABORATORY ICa Whole 1.09 (L) 1.15 - [facility] Blood 1.33 [facility] mmol/L HOSPITAL LABORATORY Comment: Note: ??Total bilirubin [...] Organization Address City/State/[place] [address] (ABNORMAL) Basic Metabolic Panel (non-fasting) (02/01/2022 1:02 AM EDT) athologist Signature Glucose Lvl 125 65 - 199 [facility] mg/dL [facility] LABORATORY Comment: Diabetes: >=200 mg/dL plus symp toms BUN 50 (H) 10 - 20 mg/dL [facility] LABORATORY Creatinine 3.91 (H) 0.80 - 1.50 mg/dL [facility] LABORATORY Sodium 127 (L) 135 - 145 mmol/L [facility] LABORATORY Potassium 5.2 (H) 3.5 - 5.0 mmol/L [facility] LABORATORY Comment: Please note: ??Patients with WBC >100,00 0 may have falsely elevated Potassium levels. ??For accurate Potassium quantif ication in these patients send serum separator tube (gold top) for subsequent determinations. ??Contact the Clinical Chemistry Laboratory if there are any qu estions. Chloride 97 (L) 98 - 107 mmol/L [facility] LABORATORY CO2 21 (L) 22 - 31 mmol/L [facility] LABORATORY Anion Gap 9 5 - 15 mmol/L [facility] LABORATORY Calcium 7.6 (L) 8.5 - 10.5 mg/dL [facility] LABORATORY Estimated GFR 20 (L) >=60 mL/min/1.73 m?? [facility] LABORATORY Comment: This patient's estimated [...] Organization Address City/State/ZIP Code Phon e Number [address] (ABNORMAL) Phosphorus (02/01/2022 1:02 AM EDT) P athologist Signature Phosphorus 4.9 (H) 2.5 - 4.5 [facility] mg/dL [facility] LABORATORY Specimen Anatomical Collection Method Collection Time Receive d Time (Source) Location / / Volume Laterality Blood 02/01/2022 1:02 AM 2 1:13 EDT AM EDT Resulting Agency Comment Spec In Lab Gela Novak MD CHEMISTRY ORDERABLES Performing Organization Address City/[facility]/ZIP Code Phon e Number [address] Magnesium (02/01/2022 1:02 AM EDT) P athologist Signature Magnesium 0.94 0.69 - 1.07 [facility] mmol/L [facility] LABORATORY Specimen Anatomical Collection Method Collection Time Receive d Time (Source) Location / / Volume Laterality Blood 02/01/2022 1:02 AM 2 1:13 EDT AM EDT Resulting Agency Comment Spec In Lab Gela Novak MD CHEMISTRY ORDERABLES Performing Organization Address City/[facility]/ZIP [facility] Phon e Number [address] (ABNORMAL) Calcium Ionized Whole Blood, HONORIO (01/31/2022 10:30 PM EDT) Analysis Performed At Patho logist Time Signature pH Honorio 7.40 7.32 - [facility] 7.42 [facility] LABORATORY ICa Whole 1.02 (L) 1.15 - [facility] Blood 1.33 [facility] mmol/L HOSPITAL LABORATORY Comment: Note: ??Total bilirubin higher than 20 m g/dL may lead to falsely low ionized calcium. Specimen Anatomical Collection Method Collection Time Receive d Time (Source) Location / / Volume Laterality Blood ARTERIAL LINE / 01/31/2022 10:30 02/01/20 22 Unknown PM EDT 10:36 PM EDT Resulting Agency Comment Spec In Lab Erika Retana MD CHEMISTRY ORDERABLES Performing Organization Address City/[facility] Phon e Number [address] POCT Glucose (01/31/2022 7:39 PM EDT) P athologist Signature POC Glucose 150 65 - 199 [facility] mg/dL [facility] LABORATORY Comment: Supplemental ranges: <140 mg/dL before meals <180 mg/dL all other times of the day Specimen Anatomical Collection Method Collection Time Receive d Time (Source) Location / / Volume Laterality Blood 01/31/2022 7:39 PM 7:39 EDT PM EDT Beck Sanz MD POINT OF CARE TEST ORDERABLE S Performing Organization Address [facility] Phon e Number [address] (ABNORMAL) Calcium Ionized Whole Blood, HONORIO (01/31/2022 7:36 PM EDT) Analysis Performed At Patho logist Time Signature pH Honorio 7.44 (H) 7.32 - [facility] 7.42 [facility] LABORATORY ICa Whole 0.98 (L) 1.15 - [facility] Blood 1.33 [facility] mmol/L HOSPITAL LABORATORY Comment: Note: ??Total bilirubin higher than 20 m g/dL may lead to falsely low ionized calcium. Specimen Anatomical Collection Method Collection Time Receive d Time (Source) Location / / Volume Laterality Blood ARTERIAL LINE / 01/31/2022 7:36 PM 2021 7:40 Unknown EDT PM EDT Resulting Agency Comment Spec In Lab Erika Retana MD CHEMISTRY ORDERABLES Performing Organization Address City/[facility] [place] [address] (ABNORMAL) Electrolytes panel (01/31/2022 4:54 PM EDT) athologist Signature Sodium 126 (L) 135 - 145 [facility] mmol/L [facility] LABORATORY Potassium 5.9 (H) 3.5 - 5.0 [facility] mmol/L [facility] LABORATORY Comment: Please note: ??Patients with WBC >100,00 0 may have falsely elevated Potassium levels. ??For accurate Potassium quantif ication in these patients send serum separator tube (gold top) for subsequent determinations. ??Contact the Clinical Chemistry Laboratory if there are any qu estions. Chloride 95 (L) 98 - 107 mmol/L [facility] LABORATORY CO2 20 (L) 22 - 31 mmol/L [facility] LABORATORY Anion Gap 11 5 - 15 mmol/L [facility] LABORATORY Specimen Anatomical Collection Method Collection Time Receive d Time (Source) Location / / Volume Laterality Blood 01/31/2022 4:54 PM 5:07 EDT PM EDT Resulting Agency Comment Spec In Lab Agnieszka López APRN CHEMISTRY ORDERABLES Performing Organization Address City/State/ZIP [place] [address] POCT Glucose (01/31/2022 10:03 AM EDT) athologist [facility] POC Glucose 108 65 - 199 [facility]dL [facility] LABORATORY Comment: Supplemental ranges: <140 mg/dL before meals <180 mg/dL all other times of the day Specimen Anatomical Collection Method Collection Time Receive d Time (Source) Location / / Volume Laterality Blood 01/31/2022 10:03 01/31/2022 AM EDT 10:03 AM EDT Beck Sanz MD POINT OF CARE TEST ORDERABLE S Performing Organization Address City/State/ZIP [place] [address] APTT (01/31/2022 8:05 AM EDT) athologist Signature PTT 36 25 - 37 sec [facility] LABORATORY Comment: The PTT is [...] Sanz MD HEMATOLOGY ORDERABLES Performing Organization Address City/[facility] [place] [address] (ABNORMAL) Electrolytes panel (01/31/2022 6:10 AM EDT) athologist Signature Sodium 126 (L) 135 - 145 [facility] mmol/L [facility] LABORATORY Potassium 5.1 (H) 3.5 - 5.0 [facility] mmol/L [facility] LABORATORY Comment: Please note: ??Patients with WBC >100,00 0 may have falsely elevated Potassium levels. ??For accurate Potassium quantif ication in these patients send serum separator tube (gold top) for subsequent determinations. ??Contact the Clinical Chemistry Laboratory if there are any qu estions. Chloride 94 (L) 98 - 107 mmol/L [facility] LABORATORY CO2 22 22 - 31 mmol/L [facility] LABORATORY Anion Gap 10 5 - 15 mmol/L [facility] LABORATORY Specimen Anatomical Collection Method Collection Time Receive d Time (Source) Location / / Volume Laterality Blood 01/31/2022 6:10 AM 2 6:15 EDT AM EDT Resulting Agency Comment Spec In Lab Erika Retana MD CHEMISTRY ORDERABLES Performing Organization Address City/[facility]/ZIP Code [place] [address] POCT Glucose (01/31/2022 4:16 AM EDT) athologist [facility] POC Glucose 94 65 - 199 [facility] mg/dL [facility] LABORATORY Comment: Supplemental ranges: <140 mg/dL before meals <180 mg/dL all other times of the day Specimen Anatomical Collection Method Collection Time Receive d Time (Source) Location / / Volume Laterality Blood 01/31/2022 4:16 AM 4:16 EDT AM EDT Beck Sanz MD POINT OF CARE TEST ORDERABLE S Performing Organization Address City/State/[place] [address] (ABNORMAL) BLOOD GAS 2 VENOUS (01/31/2022 12:43 AM EDT) Analysis Performed At Patho logist Time Signature pH Honorio 7.44 (H) 7.32 - [facility] 7.42 [facility] LABORATORY pCO2 Honorio 30 (L) 41 - 51 [facility] LABORATORY pO2 Honorio 34 25 - 40 [facility] LABORATORY HCO3 Honorio 20.2 mmol/L [facility] LABORATORY BE Honorio -4.0 mmol/L [facility] LABORATORY Hgb Blood Gas 10.1 (L) 13.7 - [facility] 16.5 g/dL [facility] LABORATORY O2HB Honorio 69.5 % [facility] LABORATORY COHB Honorio 0.1 % [facility] LABORATORY Comment: Nonsmokers: 0.5-1.5% COHB Smokers: Variable, but usually less than 10% Toxic: 20-30% COHB Lethal: Greater than 60% COHB METHB Honorio 0.3 <=1.5 % [facility] LABORATORY Na Whole Blood 120 (L) 135 - 145 mmol/L [facility] LABORATORY K Whole Blood 4.9 3.5 - 5.0 mmol/L [facility] LABORATORY Comment: Please note: Patients with WBC >100,000 may have falsely elevated Potassium levels. Contact the Clinical Chemistry L aboratory if there are any questions. ICa Whole Blood 1.05 (L) 1.15 - 1.33 mmol/L [facility] Comment: Note: ??Total bilirubin higher than 20 m g/dL may lead to falsely low ionized calcium. CL Whole Blood 95 (L) 98 - 107 mmol/L [facility] Gluc Whole Bld 110 65 - 199 mg/dL [facility] Comment: Diabetes: >=200 mg/dL plus symp toms Lactate WB 1.0 0.5 - 2.2 mmol/L [facility] BGas Source Venous [facility] Specimen Anatomical Collection Method Collection Time Receive d Time (Source) Location / / Volume Laterality Blood 01/31/2022 12:43 01/31/2022 AM EDT 12:43 AM EDT Beck Sanz MD CHEMISTRY ORDERABLES Performing Organization Address City/State/[place] [address] (ABNORMAL) Differential, Automated (01/31/2022 12:42 AM EDT) [facility] gist Method Time Signature Neutrophils % 65.8 % [facility] Neutr Abs (ANC) 23.59 (H) 1.70 - [facility] 6.10 [facility] x10(3)/[facility] LABORATORY Lymphocytes % 8.0 % [facility] Lymphocytes Abs 2.9 0.9 - 3.2 [facility] x10(3)/[facility] LABORATORY Monocytes % 9.6 % [facility] Monocyte Abs 3.4 (H) 0.3 - 0.9 [facility] x10(3)[facility] LABORATORY Eosinophils % 0.9 % [facility] Eosinophils Abs 0.3 0.0 - 0.4 [facility] x10(3)[facility] LABORATORY Basophils % 0.5 % [facility] Basophils Abs 0.2 (H) 0.0 - 0.1 [facility] x10(3)[facility] LABORATORY Immature Gran % 15.20 % [facility] Comment: Immature granulocytes(IG's)percentage an d absolute count will include metamyelocytes, myelocytes, and promyelo cytes. Blood smears from CBCs yielding IG's will be scanned manually for concor dance. If this scan disagrees with the automated IG or if promyelocytes are not ed, a manual differential will be performed. Gemini Gran Abs 5.46 (H) 0.00 - 0.04 x10(3)/[facility] LABORATORY Specimen Anatomical Collection Method Collection Time Receive d Time (Source) Location / / Volume Laterality Blood 01/31/2022 12:42 01/31/2022 AM EDT 12:49 AM EDT Resulting Agency Comment Spec In Lab Cristina Hillman APRN HEMATOLOGY ORDERABLES Performing Organization Address City/State/[place] [address] (ABNORMAL) Hemogram (01/31/2022 12:42 AM EDT) athologist Signature WBC 35.8 4.0 - 9.5 [facility] (Critical) x10(3)/[facility] LABORATORY Comment: This result has been called to PAPITO Boss by Reymundo De Luna on 01 31 2022 at 0103, and has been read back. RBC 2.84 (L) 4.58 - 5.54 x10(6)/[facility] LABORATORY Hemoglobin 9.1 (L) 13.7 - 16.5 g/dL [facility] Hematocrit 25.9 (L) 40.5 - 48.5 % [facility] MCV 91.2 82.9 - 93.1 [facility] LABORATORY MCH 32.0 27.5 - 32.1 pg [facility] MCHC 35.1 32.0 - 35.7 g/dL [facility] Platelets 195 145 - 357 x10(3)/[facility] LABORATORY RDWSD 42.7 36.0 - 45.0 [facility] LABORATORY RDWCV 13.2 11.4 - 13.8 % [facility] LABORATORY MPV 10.6 7.6 - 12.9 [facility] LABORATORY nRBC % Auto 0.0 % [facility]OR[facility]ORY nRBC Abs Auto 0.000 0.000 - 0.000 x10(3)/[facility] LABORATORY Specimen Anatomical Collection Method Collection Time Receive d Time (Source) Location / / Volume Laterality Blood 01/31/2022 12:42 01/31/2022 AM EDT 12:49 AM EDT Resulting Agency Comment Spec In Lab Cristina Tongcaitlin AVENDAÑO HEMATOLOGY ORDERABLES Performing Organization Address City/State/ZIP [place] [address] (ABNORMAL) Creatinine (01/31/2022 12:42 AM EDT) Analysis Performed At Patho logist Time Signature Creatinine 4.01 (H) 0.80 - [facility] 1.50 mg/dL [facility] Estimated GFR 20 (L) >=60 [facility] [place] mL/min/1.7 [facility] 3 ? [facility] Comment: [...] Organization Address City/State/ZIP [place] [address] (ABNORMAL) BUN (01/31/2022 12:42 AM EDT) P athologist Signature BUN 50 (H) 10 - 20 [facility] mg/dL [facility]ORY Specimen Anatomical Collection Method Collection Time Receive d Time (Source) Location / / Volume Laterality Blood 01/31/2022 12:42 01/31/2022 AM EDT 12:49 AM EDT Resulting Agency Comment Spec In Lab Beck Sanz MD CHEMISTRY ORDERABLES Performing Organization Address City/[facility]/ZIP Code [place] [address] (ABNORMAL) Electrolytes panel (01/31/2022 12:42 AM EDT) P athologist Signature Sodium 123 (L) 135 - 145 [facility] mmol/L [facility] Potassium 5.1 (H) 3.5 - 5.0 [facility] mmol/L [facility] Comment: Please note: ??Patients with WBC >100,00 0 may have falsely elevated Potassium levels. ??For accurate Potassium quantif ication in these patients send serum separator tube (gold top) for subsequent determinations. ??Contact the Clinical Chemistry Laboratory if there are any qu estions. Chloride 94 (L) 98 - 107 mmol/L [facility] CO2 21 (L) 22 - 31 mmol/L [facility] Anion Gap 8 5 - 15 mmol/L [facility] Specimen Anatomical Collection Method Collection Time Receive d Time (Source) Location / / Volume Laterality Blood 01/31/2022 12:42 01/31/2022 AM EDT 12:49 AM EDT Resulting Agency Comment Spec In Lab Erika Retana MD CHEMISTRY ORDERABLES Performing Organization Address City/[facility]/ZIP Code [place] [address] (ABNORMAL) Calcium Ionized Whole Blood, HONORIO (01/30/2022 8:17 PM EDT) Analysis Performed At Patho logist Time Signature pH Honorio 7.42 7.32 - [facility] 7.42 [facility] ICa Whole 0.99 (L) 1.15 - [facility] Blood 1.33 [facility] mmol/L [facility] Comment: Note: ??Total bilirubin higher than 20 m g/dL may lead to falsely low ionized calcium. Specimen Anatomical Collection Method Collection Time Receive d Time (Source) Location / / Volume Laterality Blood ARTERIAL LINE / 01/30/2022 8:17 PM 2021 8:24 Unknown EDT PM EDT Resulting Agency Comment Spec In Lab Erika Retana MD CHEMISTRY ORDERABLES Performing Organization Address City/[facility]/ZIP Code Phon e Number [address] APTT (01/30/2022 8:17 PM EDT) athologist Signature PTT 30 25 - 37 sec [facility] Comment: The PTT is [...] Sanz MD HEMATOLOGY ORDERABLES Performing Organization Address City/[facility]/ZIP Code [place] [address] POCT Glucose (01/30/2022 8:00 PM EDT) athologist Signature POC Glucose 144 65 - 199 [facility] mg/dL [facility] Comment: Supplemental ranges: <140 mg/dL before meals <180 mg/dL all other times of the day Specimen Anatomical Collection Method Collection Time Receive d Time (Source) Location / / Volume Laterality Blood 01/30/2022 8:00 PM 8:00 EDT PM EDT Beck Sanz MD POINT OF CARE TEST ORDERABLE S Performing Organization Address City/[facility]/ZIP [facility] [place] [address] Chest Abdomen Pelvis [...] who have questions please contact the health wound care center consultant that requested your imaging first. ? Narrative [...] nodes: No enlarged lymph nodes. Mediastinum and kotlon: Normal. Abdomen/pelvis: Liver: Hepatomegaly, measuring 20.9 cm [...] ho have questions please contact the health wound care center consultant that requested your imaging first. Agnieszka López APRN IMG CT ORDERABLES (ABNORMAL) Electrolytes panel (01/30/2022 12:23 PM EDT) athologist Signature Sodium 122 (L) 135 - 145 [facility] mmol/L [facility] Potassium 5.2 (H) 3.5 - 5.0 [facility] mmol/L [facility] Comment: Please note: ??Patients with WBC >100,00 0 may have falsely elevated Potassium levels. ??For accurate Potassium quantif ication in these patients send serum separator tube (gold top) for subsequent determinations. ??Contact the Clinical Chemistry Laboratory if there are any qu estions. Chloride 92 (L) 98 - 107 mmol/L [facility] CO2 21 (L) 22 - 31 mmol/L [facility] Anion Gap 9 5 - 15 mmol/L [facility] Specimen Anatomical Collection Method Collection Time Receive d Time (Source) Location / / Volume Laterality Blood 01/30/2022 12:23 01/30/2022 PM EDT 12:33 PM EDT Resulting Agency Comment Spec In Lab Agnieszka López APRN CHEMISTRY ORDERABLES Performing Organization Address City/State/[place] [address] POCT Glucose (01/30/2022 10:42 AM EDT) athologist Signature POC Glucose 140 65 - 199 [facility] mg/dL [facility] Comment: Supplemental ranges: <140 mg/dL before meals <180 mg/dL all other times of the day Specimen Anatomical Collection Method Collection Time Receive d Time (Source) Location / / Volume Laterality Blood 01/30/2022 10:42 01/30/2022 AM EDT 10:42 AM EDT Beck Sanz MD POINT OF CARE TEST ORDERABLE S Performing Organization Address City/[facility]/ZIP Code Phon e Number [place] [id number]OS[address] EKG 12 Lead (01/30/2022 9:18 AM EDT) Component Value Ref Range Test Analysis Performed Pathologis t Method Time At Signature Ventricular rate 111 BPM MUSE SYSTEM Atrial Rate 111 BPM MUSE SYSTEM P-R Interval 136 ms MUSE SYSTEM QRS Duration 84 ms MUSE SYSTEM Q-T Interval 308 ms MUSE SYSTEM QTC Calculated 418 ms MUSE SYSTEM (Bezet) Calculated P Warren 13 degrees MUSE SYSTEM Calculated R Warren 31 degrees MUSE SYSTEM Calculated T Warren -8 degrees MUSE SYSTEM INTERPRETATION Sinus tachycardia MUSE SY STEM Nonspecific T wave abnormality Abnormal ECG When compared with ECG of 23-JAN-2022 00:46, heart rate has slowed Confirmed by Clem Guo ([id number]) on 02/01/2022 1:23:54 PM Specimen Anatomical Collection Method Collection Time Receive d Time (Source) Location / / Volume Laterality 01/30/2022 9:18 AM 1:23 EDT PM EDT Anthony Harvey [employer] ECG ORDERABLES Performing Organization Address City/[facility]/ZIP Code Phon e Number MUSE SYSTEM POCT Glucose (01/30/2022 4:21 AM EDT) P athologist Signature POC Glucose 119 65 - 199 [facility] mg/dL [facility] Comment: Supplemental ranges: <140 mg/dL before meals <180 mg/dL all other times of the day Specimen Anatomical Collection Method Collection Time Receive d Time (Source) Location / / Volume Laterality Blood 01/30/2022 4:21 AM 2 4:21 EDT AM EDT Beck Sanz MD POINT OF CARE TEST ORDERABLE S Performing Organization Address City/[facility]/ZIP Code Phon e Number [place] [phone]OS[address] Scan, Peripheral Blood (01/30/2022 4:10 AM EDT) Patholo gist Method Time Signature Plat Estimate Normal [facility] RBC Morphology Normal [facility] Toxic Present [facility] LABORATORY Dohle Bodies Present [facility] Specimen Anatomical Collection Method Collection Time Receive d Time (Source) Location / / Volume Laterality Blood 01/30/2022 4:10 AM 4:36 EDT AM EDT Resulting Agency Comment Spec In Lab Cristina Hillman APRN HEMATOLOGY ORDERABLES Performing Organization Address City/State/[place] [address] (ABNORMAL) Differential, Automated (01/30/2022 4:10 AM EDT) [facility] gist Method Time Signature Neutrophils % 60.7 % [facility] Neutr Abs (ANC) 23.73 (H) 1.70 - [facility] 6.10 [facility] x10(3)/[facility] LABORATORY Lymphocytes % 7.2 % [facility] Lymphocytes Abs 2.8 0.9 - 3.2 [facility] x10(3)/[facility] LABORATORY Monocytes % 9.3 % [facility] Monocyte Abs 3.6 (H) 0.3 - 0.9 [facility] x10(3)/[facility] LABORATORY Eosinophils % 0.4 % [facility] Eosinophils Abs 0.2 0.0 - 0.4 [facility] x10(3)/[facility] LABORATORY Basophils % 0.2 % [facility] Basophils Abs 0.1 0.0 - 0.1 [facility] x10(3)/[facility] LABORATORY Immature Gran % 22.20 % [facility] Comment: Immature granulocytes(IG's)percentage an d absolute count will include metamyelocytes, myelocytes, and promyelo cytes. Blood smears from CBCs yielding IG's will be scanned manually for concor dance. If this scan disagrees with the automated IG or if promyelocytes are not ed, a manual differential will be performed. Gemini Gran Abs 8.67 (H) 0.00 - 0.04 x10(3)/[facility] LABORATORY Specimen Anatomical Collection Method Collection Time Receive d Time (Source) Location / / Volume Laterality Blood 01/30/2022 4:10 AM 2 4:36 EDT AM EDT Resulting Agency Comment Spec In Lab Cristina Hillman [employer] HEMATOLOGY ORDERABLES Performing Organization Address City/State/[place] [address] (ABNORMAL) Hemogram (01/30/2022 4:10 AM EDT) P athologist Signature WBC 39.1 4.0 - 9.5 [facility] (Critical) x10(3)/[facility] LABORATORY Comment: This result has been called to BECK GUILLEN by Shelli Sauceda on 01 30 2022 at 0448, and has been read back. RBC 3.18 (L) 4.58 - 5.54 x10(6)/[facility] LABORATORY Hemoglobin 10.5 (L) 13.7 - 16.5 g/dL [facility] Hematocrit 29.3 (L) 40.5 - 48.5 % [facility] MCV 92.1 82.9 - 93.1 [facility] LABORATORY MCH 33.0 (H) 27.5 - 32.1 pg [facility] MCHC 35.8 (H) 32.0 - 35.7 g/dL [facility] Platelets 195 145 - 357 x10(3)/[facility] LABORATORY RDWSD 43.3 36.0 - 45.0 [facility] LABORATORY RDWCV 13.0 11.4 - 13.8 % [facility] LABORATORY MPV 10.6 7.6 - 12.9 [facility] LABORATORY nRBC % Auto 0.0 % [facility] LABORATORY nRBC Abs Auto 0.000 0.000 - 0.000 x10(3)/[facility] LABORATORY Specimen Anatomical Collection Method Collection Time Receive d Time (Source) Location / / Volume Laterality Blood 01/30/2022 4:10 AM 2 4:36 EDT AM EDT Resulting Agency Comment Spec In Lab Cristina Hillman [employer] HEMATOLOGY ORDERABLES Performing Organization Address City/State/[place] [address] (ABNORMAL) Blood Gas Venous ([facility]) (01/30/2022 4:10 AM EDT) Analysis Performed At Patho logist Time Signature pH Honorio 7.43 (H) 7.32 - [facility] 7.42 [facility] LAB[facility]ORY pCO2 Honorio 34 (L) 41 - 51 [facility] LABORATORY pO2 Honorio 35 25 - 40 [facility] LABORATORY HCO3 Honorio 22.2 mmol/L [facility] BE Honorio -2.2 mmol/L [facility] Hgb Blood Gas 11.6 (L) 13.7 - [facility] 16.5 g/dL [facility]ORY O2HB Honorio 72.9 % [facility] COHB Honorio 1.0 % [facility] Comment: Nonsmokers: 0.5-1.5% COHB Smokers: Variable, but usually less than 10% Toxic: 20-30% COHB Lethal: Greater than 60% COHB METHB Honorio 0.3 <=1.5 % [facility] Na Whole Blood 123 (L) 135 - 145 mmol/L [facility] K Whole Blood 5.1 (H) 3.5 - 5.0 mmol/L [facility] Comment: Please note: Patients with WBC >100,000 may have falsely elevated Potassium levels. Contact the Clinical Chemistry L aboratory if there are any questions. ICa Whole Blood 1.05 (L) 1.15 - 1.33 mmol/L [facility] Comment: Note: ??Total bilirubin higher than 20 m g/dL may lead to falsely low ionized calcium. CL Whole Blood 97 (L) 98 - 107 mmol/L [facility] Gluc Whole Bld 142 65 - 199 mg/dL [facility] Comment: Diabetes: >=200 mg/dL plus symp toms Lactate WB 1.2 0.5 - 2.2 mmol/L [facility] BGas Source Venous [facility]ORY Specimen Anatomical Collection Method Collection Time Receive d Time (Source) Location / / Volume Laterality Blood Venous Draw / 01/30/2022 4:10 AM 01/31/20 22 4:31 Unknown EDT AM EDT Resulting Agency Comment Spec In Lab Angelina Reynoso MD CHEMISTRY ORDERABLES Performing Organization Address City/[facility]/ZIP Code [place] [address] (ABNORMAL) CK (01/30/2022 4:10 AM EDT) athologist Signature CK, Total 5,685 (H) 0 - 200 [facility] unit/[facility] LABORATORY Specimen Anatomical Collection Method Collection Time Receive d Time (Source) Location / / Volume Laterality Blood 01/30/2022 4:10 AM 2 4:36 EDT AM EDT Resulting Agency Comment Spec In Lab Cristina Hillman APRN CHEMISTRY ORDERABLES Performing Organization Address City/State/ZIP [place] [address] (ABNORMAL) Basic Metabolic Panel (non-fasting) (01/30/2022 4:10 AM EDT) athologist Signature Glucose Lvl 146 65 - 199 [facility] mg/dL [facility] Comment: Diabetes: >=200 mg/dL plus symp toms BUN 43 (H) 10 - 20 mg/dL [facility]ORY Creatinine 3.71 (H) 0.80 - 1.50 mg/dL [facility] Sodium 127 (L) 135 - 145 mmol/L [facility] Potassium 5.3 (H) 3.5 - 5.0 mmol/L [facility] Comment: Please note: ??Patients with WBC >100,00 0 may have falsely elevated Potassium levels. ??For accurate Potassium quantif ication in these patients send serum separator tube (gold top) for subsequent determinations. ??Contact the Clinical Chemistry Laboratory if there are any qu estions. Chloride 96 (L) 98 - 107 mmol/L [facility] CO2 22 22 - 31 mmol/L [facility] Anion Gap 9 5 - 15 mmol/L [facility] Calcium 7.5 (L) 8.5 - 10.5 mg/dL [facility] Estimated GFR 22 (L) >=60 mL/min/1.73 m?? [facility] Comment: This patient's estimated [...] Han DO CHEMISTRY ORDERABLES Performing Organization Address City/[facility]/ZIP Code Phon e Number [address] Phosphorus (01/30/2022 4:10 AM EDT) P athologist Signature Phosphorus 4.0 2.5 - 4.5 [facility] mg/dL [facility] LABORATORY Specimen Anatomical Collection Method Collection Time Receive d Time (Source) Location / / Volume Laterality Blood 01/30/2022 4:10 AM 2 4:36 EDT AM EDT Resulting Agency Comment Spec In Lab Gela Novak MD CHEMISTRY ORDERABLES Performing Organization Address City/[facility]/ZIP Code Phon e Number [address] Magnesium (01/30/2022 4:10 AM EDT) P athologist Signature Magnesium 0.92 0.69 - 1.07 [facility] mmol/L [facility] LABORATORY Specimen Anatomical Collection Method Collection Time Receive d Time (Source) Location / / Volume Laterality Blood 01/30/2022 4:10 AM 2 4:36 EDT AM EDT Resulting Agency Comment Spec In Lab Gela Novak MD CHEMISTRY ORDERABLES Performing Organization Address City/State/ZIP Code Phon e Number [address] POCT Glucose (01/30/2022 12:07 AM EDT) athologist Signature POC Glucose 115 65 - 199 [facility] mg/dL [facility] LAB[facility]ORY Comment: Supplemental ranges: <140 mg/dL before meals <180 mg/dL all other times of the day Specimen Anatomical Collection Method Collection Time Receive d Time (Source) Location / / Volume Laterality Blood 01/30/2022 12:07 01/30/2022 AM EDT 12:07 AM EDT Beck Sanz MD POINT OF CARE TEST ORDERABLE S Performing Organization Address City/[facility]/ZIP Code Phon e Number [address] POCT Glucose (01/29/2022 9:40 PM EDT) athologist Signature POC Glucose 128 65 - 199 [facility] mg/dL [facility]ORY Comment: Supplemental ranges: <140 mg/dL before meals <180 mg/dL all other times of the day Specimen Anatomical Collection Method Collection Time Receive d Time (Source) Location / / Volume Laterality Blood 01/29/2022 9:40 PM 2 9:40 EDT PM EDT Beck Sanz MD POINT OF CARE TEST ORDERABLE S Performing Organization Address City/[facility]/ZIP Code Phon e Number [address] (ABNORMAL) Phosphorus (01/29/2022 9:35 PM EDT) athologist Signature Phosphorus 4.9 (H) 2.5 - 4.5 [facility] mg/dL [facility] LABORATORY Specimen Anatomical Collection Method Collection Time Receive d Time (Source) Location / / Volume Laterality Blood 01/29/2022 9:35 PM 2 9:46 EDT PM EDT Resulting Agency Comment Spec In Lab Angelina Reynoso MD CHEMISTRY ORDERABLES Performing Organization Address City/[facility]/ZIP Code Phon e Number [address] Scan, Peripheral Blood (01/29/2022 2:55 AM EDT) P athologist Signature Plat Estimate Normal [facility] RBC Morphology Normal [facility] Specimen Anatomical Collection Method Collection Time Receive d Time (Source) Location / / Volume Laterality Blood 01/29/2022 2:55 AM 2 3:06 EDT AM EDT Resulting Agency Comment Spec In Lab Cristina Hillman APRN HEMATOLOGY ORDERABLES Performing Organization Address City/[facility]/ZIP [place] [address] (ABNORMAL) Differential, Automated (01/29/2022 2:55 AM EDT) Patholo gist Method Time Signature Neutrophils % 47.3 % [facility] Neutr Abs (ANC) 13.86 (H) 1.70 - [facility] 6.10 [facility] x10(3)/[facility] LABORATORY Lymphocytes % 8.8 % [facility] Lymphocytes Abs 2.6 0.9 - 3.2 [facility] x10(3)/[facility] LABORATORY Monocytes % 9.4 % [facility] Monocyte Abs 2.8 (H) 0.3 - 0.9 [facility] x10(3)/[facility] LABORATORY Eosinophils % 1.1 % [facility] Eosinophils Abs 0.3 0.0 - 0.4 [facility] x10(3)/[facility] LABORATORY Basophils % 0.2 % [facility] Basophils Abs 0.1 0.0 - 0.1 [facility] [facility] x[facility] LABORATORY Immature Gran % 33.20 % [facility] LABORATORY Comment: Immature granulocytes(IG's)percentage an d absolute count will include metamyelocytes, myelocytes, and promyelo cytes. Blood smears from CBCs yielding IG's will be scanned manually for concor dance. If this scan disagrees with the automated IG or if promyelocytes are not ed, a manual differential will be performed. Gemini Gran Abs 9.75 (H) 0.00 - 0.04 x10(3)/[facility] LABORATORY Specimen Anatomical Collection Method Collection Time Receive d Time (Source) Location / / Volume Laterality Blood 01/29/2022 2:55 AM 3:06 EDT AM EDT Resulting Agency Comment Spec In Lab Cristina Hillman APRN HEMATOLOGY ORDERABLES Performing Organization Address City/State/ZIP [place] [address] (ABNORMAL) Hemogram (01/29/2022 2:55 AM EDT) Analysis Performed At Patho logist Time Signature WBC 29.4 (H) 4.0 - 9.5 [facility] x10(3)/[facility] LABORATORY RBC 3.34 (L) 4.58 - [facility] x10(6)/[facility] LABORATORY Hemoglobin 10.7 (L) 13.7 - [facility] 16.5 g/dL [facility] LABORATORY Hematocrit 31.3 (L) 40.5 - [facility] 48.5 % [facility] LABORATORY MCV 93.7 (H) 82.9 - [facility] 93.1 [facility] LABORATORY MCH 32.0 27.5 - [facility] 32.1 pg [facility] LABORATORY MCHC 34.2 32.0 - [facility] 35.7 g/dL [facility] LABORATORY Platelets 148 145 - 357 [facility] x10(3)/[facility] RDWSD 44.0 36.0 - [facility] 45.0 [facility] RDWCV 13.0 11.4 - [facility] 13.8 % [facility] LABORATORY MPV 10.7 7.6 - 12.9 [facility] LABORATORY nRBC % Auto 0.0 % [facility] LABORATORY nRBC Abs Auto 0.000 0.000 - [facility] 0.000 [facility] x10(3)/[facility] LABORATORY Specimen Anatomical Collection Method Collection Time Receive d Time (Source) Location / / Volume Laterality Blood 01/29/2022 2:55 AM 2 3:06 EDT AM EDT Resulting Agency Comment Spec In Lab Gemma B Pentland [employer] HEMATOLOGY ORDERABLES Performing Organization Address City/[facility]/ZIP Code Phon e Number [address] (ABNORMAL) CK (01/29/2022 2:55 AM EDT) athologist [facility] CK, Total 7,723 (H) 0 - 200 [facility] unit/L [facility] LABORATORY Comment: result rechecked-KS Specimen Anatomical Collection Method Collection Time Receive d Time (Source) Location / / Volume Laterality Blood 01/29/2022 2:55 AM 2 3:06 EDT AM EDT Resulting Agency Comment Spec In Lab Gemma B Pentland [employer] CHEMISTRY ORDERABLES Performing Organization Address City/[facility]/ZIP Code Phon e Number [address] (ABNORMAL) Basic Metabolic Panel (non-fasting) (01/29/2022 2:55 AM EDT) P athologist Signature Glucose Lvl 124 65 - 199 [facility] mg/dL [facility] LABORATORY Comment: Diabetes: >=200 mg/dL plus symp toms BUN 34 (H) 10 - 20 mg/dL [facility] LABORATORY Comment: result rechecked-KS Creatinine 3.22 (H) 0.80 - 1.50 mg/dL [facility] LABORATORY Comment: result rechecked-KS Sodium 130 (L) 135 - 145 mmol/L [facility] LABORATORY Potassium 4.8 3.5 - 5.0 mmol/L [facility] LABORATORY Comment: Please note: ??Patients with WBC >100,00 0 may have falsely elevated Potassium levels. ??For accurate Potassium quantif ication in these patients send serum separator tube (gold top) for subsequent determinations. ??Contact the Clinical Chemistry Laboratory if there are any qu estions. Chloride 98 98 - 107 mmol/L [facility] LABORATORY CO2 24 22 - 31 mmol/L [facility] LABORATORY Anion Gap 8 5 - 15 mmol/L [facility] LABORATORY Calcium 7.6 (L) 8.5 - 10.5 mg/dL [facility] LABORATORY Estimated GFR 26 (L) >=60 mL/min/1.73 m?? [facility] LABORATORY Comment: This patient's estimated [...] Han DO CHEMISTRY ORDERABLES Performing Organization Address City/[facility]/[place] [address] Phosphorus (01/29/2022 2:55 AM EDT) P athologist Signature Phosphorus 3.2 2.5 - 4.5 [facility] mg/dL [facility] LABORATORY Specimen Anatomical Collection Method Collection Time Receive d Time (Source) Location / / Volume Laterality Blood 01/29/2022 2:55 AM 2 3:06 EDT AM EDT Resulting Agency Comment Spec In Lab Gela Novak MD CHEMISTRY ORDERABLES Performing Organization Address City/[facility]/[place] [address] [facility] LAB[address]ORY Drive Magnesium (01/29/2022 2:55 AM EDT) P athologist Signature Magnesium 0.85 0.69 - 1.07 [facility] mmol/L [facility] LABORATORY Specimen Anatomical Collection Method Collection Time Receive d Time (Source) Location / / Volume Laterality Blood 01/29/2022 2:55 AM 3:06 EDT AM EDT Resulting Agency Comment Spec In Lab Gela Novak MD CHEMISTRY ORDERABLES Performing Organization Address City/State/[place] [address] [facility] LABORATORY Drive (ABNORMAL) Blood Gas Venous ([facility]) (01/28/2022 1:25 PM EDT) Analysis Performed At Patho logist Time Signature pH Honorio 7.40 7.32 - [facility] 7.42 [facility] LABORATORY pCO2 Honorio 44 41 - 51 [facility] LABORATORY pO2 Honorio 37 25 - 40 [facility] LABORATORY HCO3 Honorio 26.5 mmol/L [facility] LABORATORY BE Honorio 1.6 mmol/L [facility] LABORATORY Hgb Blood Gas 12.1 (L) 13.7 - [facility] 16.5 g/dL [facility] LABORATORY O2HB Honorio 71.4 % [facility] LABORATORY COHB Honorio 0.7 % [facility] LABORATORY Comment: Nonsmokers: 0.5-1.5% COHB Smokers: Variable, but usually less than 10% Toxic: 20-30% COHB Lethal: Greater than 60% COHB METHB Honorio 0.1 <=1.5 % [facility] LABORATORY Na Whole Blood 130 (L) 135 - 145 mmol/L [facility] LABORATORY K Whole Blood 4.6 3.5 - 5.0 mmol/L [facility] LABORATORY Comment: Please note: Patients with WBC >100,000 may have falsely elevated Potassium levels. Contact the Clinical Chemistry L aboratory if there are any questions. ICa Whole Blood 1.16 1.15 - 1.33 mmol/L [facility] LABORATORY Comment: Note: ??Total bilirubin higher than 20 m g/dL may lead to falsely low ionized calcium. CL Whole Blood 103 98 - 107 mmol/L [facility] LABORATORY Gluc Whole Bld 130 65 - 199 mg/dL [facility] LABORATORY Comment: Diabetes: >=200 mg/dL plus symp toms Lactate WB 1.0 0.5 - 2.2 mmol/L [facility] LABORATORY BGas Source Venous [facility] LABORATORY Temp Honorio 37.3 Celsius [facility] LABORATORY Specimen Anatomical Collection Method Collection Time Receive d Time (Source) Location / / Volume Laterality Blood Venous Draw / 01/28/2022 1:25 PM 01/29/20 1:36 Unknown EDT PM EDT Resulting Agency Comment Spec In Lab Angelina Reynoso MD CHEMISTRY ORDERABLES Performing Organization Address City/State/[place] [address] (ABNORMAL) Blood Gas Venous ([facility]) (01/28/2022 6:20 AM EDT) Analysis Performed At Patho logist Time Signature pH Honorio 7.41 7.32 - [facility] 7.42 [facility] LABORATORY pCO2 Honorio 42 41 - 51 [facility] LABORATORY pO2 Honorio 30 25 - 40 [facility] LABORATORY HCO3 Honorio 26.3 mmol/L [facility] LABORATORY BE Honorio 1.7 mmol/L [facility] LABORATORY Hgb Blood Gas 12.4 (L) 13.7 - [facility] 16.5 g/dL [facility] LABORATORY O2HB Honorio 64.2 % [facility] LABORATORY COHB Honorio 0.8 % [facility] LABORATORY Comment: Nonsmokers: 0.5-1.5% COHB Smokers: Variable, but usually less than 10% Toxic: 20-30% COHB Lethal: Greater than 60% COHB METHB Honorio 0.3 <=1.5 % [facility] LABORATORY Na Whole Blood 130 (L) 135 - 145 mmol/L [facility] LABORATORY K Whole Blood 4.8 3.5 - 5.0 mmol/L [facility] LABORATORY Comment: Please note: Patients with WBC >100,000 may have falsely elevated Potassium levels. Contact the Clinical Chemistry L aboratory if there are any questions. ICa Whole Blood 1.17 1.15 - 1.33 mmol/L [facility] LABORATORY Comment: Note: ??Total bilirubin higher than 20 m g/dL may lead to falsely low ionized calcium. CL Whole Blood 103 98 - 107 mmol/L [facility] LABORATORY Gluc Whole Bld 112 65 - 199 mg/dL [facility] LABORATORY Comment: Diabetes: >=200 mg/dL plus symp toms Lactate WB 1.1 0.5 - 2.2 mmol/L [facility] LABORATORY FIO2 Honorio 21 % [facility] LABORATORY BGas Source Venous [facility] LABORATORY Specimen Anatomical Collection Method Collection Time Receive d Time (Source) Location / / Volume Laterality Blood Venous Draw / 01/28/2022 6:20 AM 01/29/20 22 6:28 Unknown EDT AM EDT Resulting Agency Comment Spec In Lab Angelina Reynoso MD CHEMISTRY ORDERABLES Performing Organization Address City/State/ZIP Code Phon e Number [address] (ABNORMAL) CK (01/28/2022 6:20 AM EDT) P athologist Signature CK, Total 11,287 (H) 0 - 200 [facility] unit/L [facility] LABORATORY Specimen Anatomical Collection Method Collection Time Receive d Time (Source) Location / / Volume Laterality Blood 01/28/2022 6:20 AM 2 6:27 EDT AM EDT Resulting Agency Comment Spec In Lab Cristina Hillman APRN CHEMISTRY ORDERABLES Performing Organization Address City/State/ZIP Code Phon e Number [address] (ABNORMAL) _Urinalysis with microscopic (01/28/2022 6:00 AM EDT) Patholo gist Method Time Signature Glucose UA 100 (A) Negative [facility] mg/dL [facility] LABORATORY Protein UA >=300 (A) Negative [facility] LABORATORY Bilirubin UA Negative Negative [facility] mg/dL [facility] LABORATORY Comment: Clinical correlation required for positi ve Urine Bilirubin results as false positive may occur with some drugs and d rug related products. If a false positive is suspected a serum total bili villaseñor should be considered if clinically indicated. Urobilinogen UA Normal Normal mg/dL [facility] LABORATORY pH UA 7.5 5.0 - 8.0 [facility] LABORATORY Blood UA Large (A) Negative mg/dL [facility] LABORATORY Ketones UA Negative Negative mg/dL [facility] LABORATORY Nitrite UA Negative Negative [facility] LABORATORY Leukocytes UA Negative Negative [facility] LABORATORY Appearance UA Clear Clear [facility] LABORATORY Spec Nora UA 1.025 1.006 - 1.030 [facility] LABORATORY Color UA Yellow [facility] LABORATORY RBC UA 4 (H) 0 - 3 /HPF [facility] LABORATORY WBC UA 1 0 - 3 /HPF [facility] LABORATORY Bacteria UA Rare (A) None /HPF [facility] LABORATORY Specimen Anatomical Collection Method Collection Time Receive d Time (Source) Location / / Volume Laterality Urine 01/28/2022 6:00 AM 2 6:40 EDT AM EDT Resulting Agency Comment Spec In Lab Beck Sanz MD URINE ORDERABLES Performing Organization Address City/State/[place] [address] Blood culture (01/28/2022 3:45 AM EDT) [facility] gist Method Time Signature Blood Culture No growth [facility] at [facility] days. [facility] LABORATORY Specimen Anatomical Collection Method Collection Time Receive d Time (Source) Location / / Volume Laterality Blood 01/28/2022 3:45 AM 2 5:37 EDT AM EDT Resulting Agency Comment Spec In Lab Beck Sanz MD MICROBIOLOGY - BLOOD ORDERAB LES Performing Organization Address City/State/ZIP Code Phon e Number [address] Scan, Peripheral Blood (01/28/2022 12:18 AM EDT) Patholo gist Method Time Signature Plat Estimate Decreased [facility] LABORATORY RBC Morphology Normal [facility] LABORATORY Specimen Anatomical Collection Method Collection Time Receive d Time (Source) Location / / Volume Laterality Blood 01/28/2022 12:18 01/28/2022 AM EDT 12:24 AM EDT Resulting Agency Comment Spec In Lab Cristina Hillman [employer] HEMATOLOGY ORDERABLES Performing Organization Address City/[facility]/ZIP Code Phon e Number [address] (ABNORMAL) Blood Gas Venous ([facility]) (01/28/2022 12:18 AM EDT) Analysis Performed At Patho logist Time Signature pH Honorio 7.39 7.32 - [facility] 7.42 [facility] LABORATORY pCO2 Honorio 44 41 - 51 [facility] LABORATORY pO2 Honorio 34 25 - 40 [facility] LABORATORY HCO3 Honorio 25.9 mmol/L [facility] LABORATORY BE Honorio 1.0 mmol/L [facility] LABORATORY Hgb Blood Gas 12.8 (L) 13.7 - [facility] 16.5 g/dL [facility] LABORATORY O2HB Honorio 68.7 % [facility] LABORATORY COHB Honorio 0.6 % [facility] LABORATORY Comment: Nonsmokers: 0.5-1.5% COHB Smokers: Variable, but usually less than 10% Toxic: 20-30% COHB Lethal: Greater than 60% COHB METHB Honorio 0.3 <=1.5 % [facility] LABORATORY Na Whole Blood 130 (L) 135 - 145 mmol/L [facility] LABORATORY K Whole Blood 4.4 3.5 - 5.0 mmol/L [facility] LABORATORY Comment: Please note: Patients with WBC >100,000 may have falsely elevated Potassium levels. Contact the Clinical Chemistry L aboratory if there are any questions. ICa Whole Blood 1.14 (L) 1.15 - 1.33 mmol/L [facility] LABORATORY Comment: Note: ??Total bilirubin higher than 20 m g/dL may lead to falsely low ionized calcium. CL Whole Blood 102 98 - 107 mmol/L [facility] LABORATORY Gluc Whole Bld 120 65 - 199 mg/dL [facility] LABORATORY Comment: Diabetes: >=200 mg/dL plus symp toms Lactate WB 1.0 0.5 - 2.2 mmol/L [facility] LABORATORY FIO2 Honorio 21 % [facility] LABORATORY BGas Source Venous [facility] LABORATORY Specimen Anatomical Collection Method Collection Time Receive d Time (Source) Location / / Volume Laterality Blood Venous Draw / 01/28/2022 12:18 01/28/2022 Unknown AM EDT 12:25 AM EDT Resulting Agency Comment Spec In Lab Angelina Reynoso MD CHEMISTRY ORDERABLES Performing Organization Address City/State/[place] [address] (ABNORMAL) Differential, Automated (01/28/2022 12:18 AM EDT) [employer] Method Time Signature Neutrophils % 56.1 % [facility] LABORATORY Neutr Abs (ANC) 13.41 (H) 1.70 - [facility] 6.10 [facility] x10(3)/[facility] LABORATORY Lymphocytes % 7.3 % [facility] LABORATORY Lymphocytes Abs 1.7 0.9 - 3.2 [facility] x10(3)/[facility] LABORATORY Monocytes % 6.7 % [facility] LABORATORY Monocyte Abs 1.6 (H) 0.3 - 0.9 [facility] x10(3)/[facility] LABORATORY Eosinophils % 1.0 % [facility] LABORATORY Eosinophils Abs 0.2 0.0 - 0.4 [facility] x10(3)/[facility] LABORATORY Basophils % 0.1 % [facility] LABORATORY Basophils Abs 0.0 0.0 - 0.1 [facility] x10(3)/[facility] LABORATORY Immature Gran % 28.80 % [facility] LABORATORY Comment: Immature granulocytes(IG's)percentage an d absolute count will include metamyelocytes, myelocytes, and promyelo cytes. Blood smears from CBCs yielding IG's will be scanned manually for concor dance. If this scan disagrees with the automated IG or if promyelocytes are not ed, a manual differential will be performed. Gemini Gran Abs 6.87 (H) 0.00 - 0.04 x10(3)/[facility] LABORATORY Specimen Anatomical Collection Method Collection Time Receive d Time (Source) Location / / Volume Laterality Blood 01/28/2022 12:18 01/28/2022 AM EDT 12:24 AM EDT Resulting Agency Comment Spec In Lab Cristina Hillman APRN HEMATOLOGY ORDERABLES Performing Organization Address City/State/ZIP [place] [address] (ABNORMAL) Hemogram (01/28/2022 12:18 AM EDT) Analysis Performed At Patho logist Time Signature WBC 23.9 (H) 4.0 - 9.5 [facility] x10(3)/[facility] LABORATORY RBC 3.63 (L) 4.58 - [facility] 5.54 [facility] x10(6)/[facility] LABORATORY Hemoglobin 11.9 (L) 13.7 - [facility] 16.5 g/dL [facility] LABORATORY Hematocrit 34.7 (L) 40.5 - [facility] 48.5 % [facility] LABORATORY MCV 95.6 (H) 82.9 - [facility] 93.1 [facility] LABORATORY MCH 32.8 (H) 27.5 - [facility] 32.1 pg [facility] LABORATORY MCHC 34.3 32.0 - [facility] 35.7 g/dL [facility] LABORATORY Platelets 106 (L) 145 - 357 [facility] x10(3)/[facility] LABORATORY RDWSD 43.9 36.0 - [facility] 45.0 [facility] LABORATORY RDWCV 12.8 11.4 - [facility] 13.8 % [facility] LABORATORY MPV 10.5 7.6 - 12.9 [facility] LABORATORY nRBC % Auto 0.0 % [facility] LABORATORY nRBC Abs Auto 0.000 0.000 - [facility] 0.000 [facility] x10(3)/[facility] LABORATORY Specimen Anatomical Collection Method Collection Time Receive d Time (Source) Location / / Volume Laterality Blood 01/28/2022 12:18 01/28/2022 AM EDT 12:24 AM EDT Resulting Agency Comment Spec In Lab Gemma B Pentland [employer] FILTER[employer] HEMATOLOGY ORDERABLES Performing Organization Address City/State/ZIP Code Phon e Number [address] (ABNORMAL) Hepatic Function Panel (01/28/2022 12:18 AM EDT) P athologist Signature Total Protein 4.5 (L) 6.1 - 8.0 [facility] g/dL [facility] LABORATORY Albumin 2.0 (L) 3.2 - 5.2 [facility] g/dL [facility] LABORATORY AST 418 (H) 0 - 39 [facility] unit/L [facility] LABORATORY ALT 237 (H) 0 - 55 [facility] unit/L [facility] LABORATORY Alk Phos 88 40 - 130 [facility] unit/L [facility] LABORATORY Total 0.4 0.2 - 1.3 [facility] Bilirubin mg/dL [facility] LABORATORY Bili, Direct 0.3 0.0 - 0.3 [facility] mg/dL [facility] LABORATORY Specimen Anatomical Collection Method Collection Time Receive d Time (Source) Location / / Volume Laterality Blood 01/28/2022 12:18 01/28/2022 AM EDT 12:24 AM EDT Resulting Agency Comment Spec In Lab Gemma B Pentland WH[employer] LE[employer] FILTERER CHEMISTRY ORDERABLES Performing Organization Address City/State/ZIP Code Phon e Number [address] (ABNORMAL) Basic Metabolic Panel (non-fasting) (01/28/2022 12:18 AM EDT) P athologist Signature Glucose Lvl 118 65 - 199 [facility] mg/dL [facility] LABORATORY Comment: Diabetes: >=200 mg/dL plus symp toms BUN 20 10 - 20 mg/dL [facility] LABORATORY Creatinine 2.03 (H) 0.80 - 1.50 mg/dL [facility] LABORATORY Sodium 136 135 - 145 mmol/L [facility] LABORATORY Potassium 4.6 3.5 - 5.0 mmol/L [facility] LABORATORY Comment: Please note: ??Patients with WBC >100,00 0 may have falsely elevated Potassium levels. ??For accurate Potassium quantif ication in these patients send serum separator tube (gold top) for subsequent determinations. ??Contact the Clinical Chemistry Laboratory if there are any qu estions. Chloride 102 98 - 107 mmol/L [facility] LABORATORY CO2 25 22 - 31 mmol/L [facility] LABORATORY Anion Gap 9 5 - 15 mmol/L [facility] LABORATORY Calcium 7.9 (L) 8.5 - 10.5 mg/dL [facility] LABORATORY Estimated GFR 44 (L) >=60 mL/min/1.73 m?? [facility] LABORATORY Comment: This patient's estimated [...] Organization Address City/State/[place] [address] Phosphorus (01/28/2022 12:18 AM EDT) athologist Signature Phosphorus 2.5 2.5 - 4.5 [facility] mg/dL [facility] LABORATORY Specimen Anatomical Collection Method Collection Time Receive d Time (Source) Location / / Volume Laterality Blood 01/28/2022 12:18 01/28/2022 AM EDT 12:24 AM EDT Resulting Agency Comment Spec In Lab Gela Novak MD CHEMISTRY ORDERABLES Performing Organization Address City/State/ZIP Code Phon e Number [address] Magnesium (01/28/2022 12:18 AM EDT) athologist [facility] Magnesium 0.81 0.69 - 1.07 [facility] mmol/L [facility] LABORATORY Specimen Anatomical Collection Method Collection Time Receive d Time (Source) Location / / Volume Laterality Blood 01/28/2022 12:18 01/28/2022 AM EDT 12:24 AM EDT Resulting Agency Comment Spec In Lab Gela Novak MD CHEMISTRY ORDERABLES Performing Organization Address City/State/ZIP Code Phon e Number [address] (ABNORMAL) CK (01/28/2022 12:18 AM EDT) athologist [facility] CK, Total 14,277 (H) 0 - 200 [facility] unit/L [facility] LABORATORY Specimen Anatomical Collection Method Collection Time Receive d Time (Source) Location / / Volume Laterality Blood 01/28/2022 12:18 01/28/2022 AM EDT 12:24 AM EDT Resulting Agency Comment Spec In Lab Cristina Hillman APRN CHEMISTRY ORDERABLES Performing Organization Address City/State/ZIP Code Phon e Number [address] POCT Glucose (01/27/2022 8:29 PM EDT) athologist [facility] POC Glucose 104 65 - 199 [facility] mg/dL [facility] LABORATORY Comment: Supplemental ranges: <140 mg/dL before meals <180 mg/dL all other times of the day Specimen Anatomical Collection Method Collection Time Receive d Time (Source) Location / / Volume Laterality Blood 01/27/2022 8:29 PM 8:29 EDT PM EDT Beck Sanz MD POINT OF CARE TEST ORDERABLE S Performing Organization Address City/State/[place] [address] (ABNORMAL) Blood Gas Venous ([facility]) (01/27/2022 6:06 PM EDT) Analysis Performed At Patho logist Time Signature pH Honorio 7.42 7.32 - [facility] 7.42 [facility] LABORATORY pCO2 Honorio 42 41 - 51 [facility] LABORATORY pO2 Honorio 35 25 - 40 [facility] LABORATORY HCO3 Honorio 26.5 mmol/L [facility]OR[facility] BE Honorio 2.0 mmol/L [facility] Hgb Blood Gas 11.9 (L) 13.7 - [facility] 16.5 g/dL [facility] LAB[facility]ORY O2HB Honorio 72.0 % [facility] COHB Honorio 0.8 % [facility] Comment: Nonsmokers: 0.5-1.5% COHB Smokers: Variable, but usually less than 10% Toxic: 20-30% COHB Lethal: Greater than 60% COHB METHB Honorio 0.2 <=1.5 % [facility] LABORATORY Na Whole Blood 130 (L) 135 - 145 mmol/L [facility] K Whole Blood 4.3 3.5 - 5.0 mmol/L [facility] LABORATORY Comment: Please note: Patients with WBC >100,000 may have falsely elevated Potassium levels. Contact the Clinical Chemistry L aboratory if there are any questions. ICa Whole Blood 1.14 (L) 1.15 - 1.33 mmol/L [facility] LABOR[facility] Comment: Note: ??Total bilirubin higher than 20 m g/dL may lead to falsely low ionized calcium. CL Whole Blood 103 98 - 107 mmol/L [facility]ORY Gluc Whole Bld 142 65 - 199 mg/dL [facility] LABOR[facility]ORY Comment: Diabetes: >=200 mg/dL plus symp toms Lactate WB 1.2 0.5 - 2.2 mmol/L [facility] LABORATORY BGas Source Venous [facility] LABORATORY Specimen Anatomical Collection Method Collection Time Receive d Time (Source) Location / / Volume Laterality Blood Venous Draw / 01/27/2022 6:06 PM 01/28/20 22 6:06 Unknown EDT PM EDT Resulting Agency Comment Spec In Lab Angelina Reynoso MD CHEMISTRY ORDERABLES Performing Organization Address City/State/ZIP [place] [address] (ABNORMAL) CK (01/27/2022 5:55 PM EDT) athologist [facility] CK, Total 15,910 (H) 0 - 200 [facility] unit/[facility] LABORATORY Specimen Anatomical Collection Method Collection Time Receive d Time (Source) Location / / Volume Laterality Blood 01/27/2022 5:55 PM 2 6:05 EDT PM EDT Resulting Agency Comment Spec In Lab Cristina Hillman APRN CHEMISTRY ORDERABLES Performing Organization Address City/State/ZIP [place] [address] POCT Glucose (01/27/2022 4:28 PM EDT) athologist Signature POC Glucose 99 65 - 199 [facility] mg/dL [facility] LABOR[facility]ORY Comment: Supplemental ranges: <140 mg/dL before meals <180 mg/dL all other times of the day Specimen Anatomical Collection Method Collection Time Receive d Time (Source) Location / / Volume Laterality Blood 01/27/2022 4:28 PM 2 4:28 EDT PM EDT Beck Sanz MD POINT OF CARE TEST ORDERABLE S Performing Organization Address City/State/ZIP [place] [address] POCT Glucose (01/27/2022 12:13 PM EDT) athologist Signature POC Glucose 108 65 - 199 [facility] mg/dL [facility] LABORATORY Comment: Supplemental ranges: <140 mg/dL before meals <180 mg/dL all other times of the day Specimen Anatomical Collection Method Collection Time Receive d Time (Source) Location / / Volume Laterality Blood 01/27/2022 12:13 01/27/2022 PM EDT 12:13 PM EDT Beck Sanz MD POINT OF CARE TEST ORDERABLE S Performing Organization Address City/State/[place] [address] (ABNORMAL) BLOOD GAS 2 VENOUS (01/27/2022 12:11 PM EDT) Analysis Performed At Patho logist Time Signature pH Honorio 7.41 7.32 - [facility] 7.42 [facility] LABORATORY pCO2 Honorio 42 41 - 51 [facility] LABORATORY pO2 Honorio 34 25 - 40 [facility] LABORATORY HCO3 Honorio 25.7 mmol/L [facility]ORAT[facility] BE Honorio 1.1 mmol/L [facility]OR[facility]ORY Hgb Blood Gas 13.1 (L) 13.7 - [facility] 16.5 g/dL [facility] LABORATORY O2HB Honorio 70.3 % [facility] COHB Honorio 1.0 % [facility]ORY Comment: Nonsmokers: 0.5-1.5% COHB Smokers: Variable, but usually less than 10% Toxic: 20-30% COHB Lethal: Greater than 60% COHB METHB Honorio 0.2 <=1.5 % [facility]OR[facility] Na Whole Blood 130 (L) 135 - 145 mmol/L [facility] K Whole Blood 4.3 3.5 - 5.0 mmol/L [facility] LABORATORY Comment: Please note: Patients with WBC >100,000 may have falsely elevated Potassium levels. Contact the Clinical Chemistry L aboratory if there are any questions. ICa Whole Blood 1.13 (L) 1.15 - 1.33 mmol/L [facility] LABOR[facility]ORY Comment: Note: ??Total bilirubin higher than 20 m g/dL may lead to falsely low ionized calcium. CL Whole Blood 102 98 - 107 mmol/L [facility]OR[facility]ORY Gluc Whole Bld 127 65 - 199 mg/dL [facility] Comment: Diabetes: >=200 mg/dL plus symp toms Lactate WB 1.1 0.5 - 2.2 mmol/L [facility] LABORATORY FIO2 Honorio 21 % [facility] LABORAT[facility] BGas Source Venous [facility] LABORATORY Specimen Anatomical Collection Method Collection Time Receive d Time (Source) Location / / Volume Laterality Blood 01/27/2022 12:11 01/27/2022 PM EDT 12:11 PM EDT Beck Sanz MD CHEMISTRY ORDERABLES Performing Organization Address City/State/ZIP Code Phon e Number [address] (ABNORMAL) Creatinine (01/27/2022 12:05 PM EDT) Analysis Performed At Patho logist Time Signature Creatinine 2.06 (H) 0.80 - [facility] 1.50 mg/dL [facility] LABORATORY Estimated GFR 44 (L) >=60 [facility] mL/min/1.7 [facility] 3 [facility] LABORATORY Comment: This patient's estimated GFR was [...] Organization Address City/State/[place] [address] [facility] [address] Scan, Peripheral Blood (01/27/2022 10:22 AM EDT) [facility] Method Time Signature Plat Estimate Decreased [facility] LABORATORY RBC Morphology Normal [facility] LABORATORY Specimen Anatomical Collection Method Collection Time Receive d Time (Source) Location / / Volume Laterality Blood 01/27/2022 10:22 01/27/2022 AM EDT 10:38 AM EDT Resulting Agency Comment Spec In Lab Cristina Hillman [employer] HEMATOLOGY ORDERABLES Performing Organization Address City/State/[place] [address] (ABNORMAL) Differential, Automated (01/27/2022 10:22 AM EDT) [facility] [employer] Method Time Signature Neutrophils % 61.9 % [facility] LABORATORY Neutr Abs (ANC) 11.72 (H) 1.70 - [facility] 6.10 [facility] x10(3)/[facility] LABORATORY Lymphocytes % 7.8 % [facility] LABORATORY Lymphocytes Abs 1.5 0.9 - 3.2 [facility] x10(3)/[facility] LABORATORY Monocytes % 5.6 % [facility] LABORATORY Monocyte Abs 1.1 (H) 0.3 - 0.9 [facility] x10(3)/[facility] LABORATORY Eosinophils % 1.1 % [facility] LABORATORY Eosinophils Abs 0.2 0.0 - 0.4 [facility] x10(3)/[facility] LABORATORY Basophils % 0.1 % [facility] LABORATORY Basophils Abs 0.0 0.0 - 0.1 [facility] x10(3)/[facility] LABORATORY Immature Gran % 23.50 % [facility] LABORATORY Comment: Immature granulocytes(IG's)percentage an d absolute count will include metamyelocytes, myelocytes, and promyelo cytes. Blood smears from CBCs yielding IG's will be scanned manually for concor dance. If this scan disagrees with the automated IG or if promyelocytes are not ed, a manual differential will be performed. Gemini Gran Abs 4.45 (H) 0.00 - 0.04 x10(3)/[facility] LABORATORY Specimen Anatomical Collection Method Collection Time Receive d Time (Source) Location / / Volume Laterality Blood 01/27/2022 10:22 01/27/2022 AM EDT 10:38 AM EDT Resulting Agency Comment Spec In Lab Jaquelinma B Pentland [employer] HEMATOLOGY ORDERABLES Performing Organization Address City/State/[place] [address] (ABNORMAL) Hemogram (01/27/2022 10:22 AM EDT) [facility] gist Method Time Signature WBC 18.9 (H) 4.0 - 9.5 [facility] x10(3)/[facility] LABORATORY RBC 3.61 (L) 4.58 - [facility] 5.54 [facility] x10(6)/[facility] LABORATORY Hemoglobin 11.6 (L) 13.7 - [facility] 16.5 g/dL [facility] LABORATORY Hematocrit 34.2 (L) 40.5 - [facility] 48.5 % [facility] LABORATORY MCV 94.7 (H) 82.9 - [facility] 93.1 [facility] LABORATORY MCH 32.1 27.5 - [facility] 32.1 pg [facility] LABORATORY MCHC 33.9 32.0 - [facility] 35.7 g/dL [facility] LABORATORY Platelets 100 (L) 145 - 357 [facility] x10(3)/[facility] LABORATORY RDWSD 43.3 36.0 - [facility] 45.0 [facility] LABORATORY RDWCV 12.6 11.4 - [facility] 13.8 % [facility] LABORATORY MPV 10.6 7.6 - 12.9 [facility] LABORATORY nRBC % Auto 0.1 % [facility] LABORATORY nRBC Abs Auto 0.020 (H) 0.000 - [facility] 0.000 [facility] x10(3)/[facility] LABORATORY Specimen Anatomical Collection Method Collection Time Receive d Time (Source) Location / / Volume Laterality Blood 01/27/2022 10:22 01/27/2022 AM EDT 10:38 AM EDT Resulting Agency Comment Spec In Lab Gemma B Pentland [employer] HEMATOLOGY ORDERABLES Performing Organization Address City/State/ZIP Code Phon e Number [place] [id number] [address]OSP[address] LAB[address]ORY Drive POCT Glucose (01/27/2022 8:30 AM EDT) athologist Signature POC Glucose 103 65 - 199 [facility] mg/dL [facility] LABORATORY Comment: Supplemental ranges: <140 mg/dL before meals <180 mg/dL all other times of the day Specimen Anatomical Collection Method Collection Time Receive d Time (Source) Location / / Volume Laterality Blood 01/27/2022 8:30 AM 8:30 EDT AM EDT Beck Sanz MD POINT OF CARE TEST ORDERABLE S Performing Organization Address City/State/ZIP [place] [address] (ABNORMAL) Blood Gas Venous ([facility]) (01/27/2022 5:36 AM EDT) athologist Signature pH Honorio 7.37 7.32 - [facility] 7.42 [facility] LABORATORY pCO2 Honorio 47 41 - 51 [facility] LABORATORY pO2 Honorio 33 25 - 40 [facility] LABORATORY HCO3 Honorio 26.4 mmol/L [facility] LABORATORY BE Honorio 1.2 mmol/L [facility] LABORATORY Hgb Blood Gas 16.1 13.7 - [facility] 16.5 g/dL [facility] LABORATORY O2HB Honorio 66.2 % [facility] LABORATORY COHB Honorio 1.5 % [facility] LABORATORY Comment: Nonsmokers: 0.5-1.5% COHB Smokers: Variable, but usually less than 10% Toxic: 20-30% COHB Lethal: Greater than 60% COHB METHB Honorio 0.3 <=1.5 % [facility] LABORATORY Na Whole Blood 133 (L) 135 - 145 mmol/L [facility] LABORATORY K Whole Blood 4.4 3.5 - 5.0 mmol/L [facility] LABORATORY Comment: Please note: Patients with WBC >100,000 may have falsely elevated Potassium levels. Contact the Clinical Chemistry L aboratory if there are any questions. ICa Whole Blood 1.14 (L) 1.15 - 1.33 mmol/L [facility] LABORATORY Comment: Note: ??Total bilirubin higher than 20 m g/dL may lead to falsely low ionized calcium. CL Whole Blood 102 98 - 107 mmol/L [facility] LABORATORY Gluc Whole Bld 106 65 - 199 mg/dL [facility] LABORATORY Comment: Diabetes: >=200 mg/dL plus symp toms Lactate WB 1.2 0.5 - 2.2 mmol/L [facility] LABORATORY BGas Source Venous [facility] LABORATORY Specimen Anatomical Collection Method Collection Time Receive d Time (Source) Location / / Volume Laterality Blood Venous Draw / 01/27/2022 5:36 AM 01/28/20 22 5:45 Unknown EDT AM EDT Resulting Agency Comment Spec In Lab Angelina Reynoso MD CHEMISTRY ORDERABLES Performing Organization Address City/State/ZIP [place] [address] (ABNORMAL) CK (01/27/2022 5:36 AM EDT) P athologist Signature CK, Total 21,662 (H) 0 - 200 [facility] unit/L [facility] LABORATORY Specimen Anatomical Collection Method Collection Time Receive d Time (Source) Location / / Volume Laterality Blood 01/27/2022 5:36 AM 2 5:43 EDT AM EDT Resulting Agency Comment Spec In Lab Cristina Hillman APRN CHEMISTRY ORDERABLES Performing Organization Address City/[facility]/ZIP Code [place] [address] (ABNORMAL) Blood Gas Venous ([facility]) (01/27/2022 1:25 AM EDT) Analysis Performed At Patho logist Time Signature pH Honorio 7.44 (H) 7.32 - [facility] 7.42 [facility] LABORATORY pCO2 Honorio 39 (L) 41 - 51 [facility] LABORATORY pO2 Honorio 36 25 - 40 [facility] LABORATORY HCO3 Honorio 25.9 mmol/L [facility] LABORATORY BE Honorio 1.6 mmol/L [facility] LABORATORY Hgb Blood Gas 11.8 (L) 13.7 - [facility] 16.5 g/dL [facility] LABORATORY O2HB Honorio 73.6 % [facility] LABORATORY COHB Honorio 0.6 % [facility] LABORATORY Comment: Nonsmokers: 0.5-1.5% COHB Smokers: Variable, but usually less than 10% Toxic: 20-30% COHB Lethal: Greater than 60% COHB METHB Honorio 0.0 <=1.5 % [facility] LABORATORY Na Whole Blood 132 (L) 135 - 145 mmol/L [facility] LABORATORY K Whole Blood 4.3 3.5 - 5.0 mmol/L [facility] LABORATORY Comment: Please note: Patients with WBC >100,000 may have falsely elevated Potassium levels. Contact the Clinical Chemistry L aboratory if there are any questions. ICa Whole Blood 1.11 (L) 1.15 - 1.33 mmol/L [facility] LABORATORY Comment: Note: ??Total bilirubin higher than 20 m g/dL may lead to falsely low ionized calcium. CL Whole Blood 104 98 - 107 mmol/L [facility] LABORATORY Gluc Whole Bld 108 65 - 199 mg/dL [facility] LABOR[facility]ORY Comment: Diabetes: >=200 mg/dL plus symp toms Lactate WB 1.6 0.5 - 2.2 mmol/L [facility] LABORATORY BGas Source Venous [facility] LABORATORY Specimen Anatomical Collection Method Collection Time Receive d Time (Source) Location / / Volume Laterality Blood Venous Draw / 01/27/2022 1:25 AM 01/28/20 1:31 Unknown EDT AM EDT Resulting Agency Comment Spec In Lab Angelina Reynoso MD CHEMISTRY ORDERABLES Performing Organization Address City/State/[place] [address] (ABNORMAL) CK (01/27/2022 1:25 AM EDT) P athologist Signature CK, Total 22,236 (H) 0 - 200 [facility] unit/L [facility] LABORATORY Specimen Anatomical Collection Method Collection Time Receive d Time (Source) Location / / Volume Laterality Blood 01/27/2022 1:25 AM 2 1:30 EDT AM EDT Resulting Agency Comment Spec In Lab Gemma B Pentland [employer] CHEMISTRY ORDERABLES Performing Organization Address City/[facility]/ZIP [place] [address] (ABNORMAL) Hepatic Function Panel (01/27/2022 1:25 AM EDT) P athologist Signature Total Protein 4.3 (L) 6.1 - 8.0 [facility] g/dL [facility] LABORATORY Albumin 2.1 (L) 3.2 - 5.2 [facility] g/dL [facility] LABORATORY AST 618 (H) 0 - 39 [facility] unit/L [facility] LABORATORY ALT 418 (H) 0 - 55 [facility] unit/L [facility] LABORATORY Alk Phos 82 40 - 130 [facility] unit/L [facility] LABORATORY Total 0.9 0.2 - 1.3 [facility] Bilirubin mg/dL [facility] LABORATORY Bili, Direct 0.8 (H) 0.0 - 0.3 [facility] mg/dL [facility] LABORATORY Specimen Anatomical Collection Method Collection Time Receive d Time (Source) Location / / Volume Laterality Blood 01/27/2022 1:25 AM 2 1:30 EDT AM EDT Resulting Agency Comment Spec In Lab Gemma B Pentland [employer] CHEMISTRY ORDERABLES Performing Organization Address City/[facility]/[place] [address] (ABNORMAL) Basic Metabolic Panel (non-fasting) (01/27/2022 1:25 AM EDT) P athologist Signature Glucose Lvl 112 65 - 199 [facility] mg/dL [facility] LABORATORY Comment: Diabetes: >=200 mg/dL plus symp toms BUN 21 (H) 10 - 20 mg/dL [facility] LABORATORY Creatinine 2.12 (H) 0.80 - 1.50 mg/dL [facility] LABORATORY Sodium 135 135 - 145 mmol/L [facility] LABORATORY Potassium 4.4 3.5 - 5.0 mmol/L [facility] LABORATORY Comment: Please note: ??Patients with WBC >100,00 0 may have falsely elevated Potassium levels. ??For accurate Potassium quantif ication in these patients send serum separator tube (gold top) for subsequent determinations. ??Contact the Clinical Chemistry Laboratory if there are any qu estions. Chloride 104 98 - 107 mmol/L [facility] LABORATORY CO2 25 22 - 31 mmol/L [facility] LABOR[facility]ORY Anion Gap 6 5 - 15 mmol/L [facility] LABORATORY Calcium 7.7 (L) 8.5 - 10.5 mg/dL [facility] LABORATORY Estimated GFR 42 (L) >=60 mL/min/1.73 m?? [facility] LABORATORY Comment: This patient's estimated [...] Organization Address City/State/[place] [address] (ABNORMAL) Phosphorus (01/27/2022 1:25 AM EDT) P athologist Signature Phosphorus 1.6 (L) 2.5 - 4.5 [facility] mg/dL [facility] LABORATORY Specimen Anatomical Collection Method Collection Time Receive d Time (Source) Location / / Volume Laterality Blood 01/27/2022 1:25 AM 2 1:30 EDT AM EDT Resulting Agency Comment Spec In Lab Gela Novak MD CHEMISTRY ORDERABLES Performing Organization Address City/[facility]/ZIP Code Phon e Number [address] Magnesium (01/27/2022 1:25 AM EDT) P athologist Signature Magnesium 0.72 0.69 - 1.07 [facility] mmol/L [facility] LABORATORY Specimen Anatomical Collection Method Collection Time Receive d Time (Source) Location / / Volume Laterality Blood 01/27/2022 1:25 AM 2 1:30 EDT AM EDT Resulting Agency Comment Spec In Lab Gela Novak MD CHEMISTRY ORDERABLES Performing Organization Address City/[facility]/ZIP Code Phon e Number [address] POCT Glucose (01/26/2022 8:59 PM EDT) P athologist Signature POC Glucose 83 65 - 199 [facility] mg/dL [facility] LABORATORY Comment: Supplemental ranges: <140 mg/dL before meals <180 mg/dL all other times of the day Specimen Anatomical Collection Method Collection Time Receive d Time (Source) Location / / Volume Laterality Blood 01/26/2022 8:59 PM 2 8:59 EDT PM EDT Beck Sanz MD POINT OF CARE TEST ORDERABLE S Performing Organization Address City/[facility]/ZIP [place] [address] (ABNORMAL) Blood Gas Venous ([facility]) (01/26/2022 6:19 PM EDT) Analysis Performed At Patho logist Time Signature pH Honorio 7.34 7.32 - [facility] 7.42 [facility] LABORATORY pCO2 Honorio 48 41 - 51 [facility] LABORATORY pO2 Honorio 32 25 - 40 [facility] LABORATORY HCO3 Honorio 25.4 mmol/L [facility] LABORATORY BE Honorio -0.3 mmol/L [facility] LABORATORY Hgb Blood Gas 12.0 (L) 13.7 - [facility] 16.5 g/dL [facility] LABORATORY O2HB Honorio 59.2 % [facility] LABORATORY COHB Honorio 1.1 % [facility] LABORATORY Comment: Nonsmokers: 0.5-1.5% COHB Smokers: Variable, but usually less than 10% Toxic: 20-30% COHB Lethal: Greater than 60% COHB METHB Honorio 0.3 <=1.5 % [facility] LABORATORY Na Whole Blood 131 (L) 135 - 145 mmol/L [facility] LABORATORY K Whole Blood 4.1 3.5 - 5.0 mmol/L [facility] LABORATORY Comment: Please note: Patients with WBC >100,000 may have falsely elevated Potassium levels. Contact the Clinical Chemistry L aboratory if there are any questions. ICa Whole Blood 1.12 (L) 1.15 - 1.33 mmol/L [facility] LABORATORY Comment: Note: ??Total bilirubin higher than 20 m g/dL may lead to falsely low ionized calcium. CL Whole Blood 104 98 - 107 mmol/L [facility] LABORATORY Gluc Whole Bld 127 65 - 199 mg/dL [facility] LABORATORY Comment: Diabetes: >=200 mg/dL plus symp toms Lactate WB 1.5 0.5 - 2.2 mmol/L [facility] LABORATORY BGas Source Venous [facility] LABORATORY Specimen Anatomical Collection Method Collection Time Receive d Time (Source) Location / / Volume Laterality Blood Venous Draw / 01/26/2022 6:19 PM 01/27/20 22 6:32 Unknown EDT PM EDT Resulting Agency Comment Spec In Lab Angelina Reynoso MD CHEMISTRY ORDERABLES Performing Organization Address City/State/[place] [address] (ABNORMAL) CK (01/26/2022 6:19 PM EDT) athologist Signature CK, Total 21,834 (H) 0 - 200 [facility] unit/L [facility] LABORATORY Specimen Anatomical Collection Method Collection Time Receive d Time (Source) Location / / Volume Laterality Blood 01/26/2022 6:19 PM 2 6:31 EDT PM EDT Resulting Agency Comment Spec In Lab Jaquelinma B Rafy [employer] CHEMISTRY ORDERABLES Performing Organization Address City/State/ZIP [place] [address] POCT Glucose (01/26/2022 6:03 PM EDT) athologist Signature POC Glucose 108 65 - 199 [facility] mg/dL [facility] LABORATORY Comment: Supplemental ranges: <140 mg/dL before meals <180 mg/dL all other times of the day Specimen Anatomical Collection Method Collection Time Receive d Time (Source) Location / / Volume Laterality Blood 01/26/2022 6:03 PM 2 6:03 EDT PM EDT Beck Sanz MD POINT OF CARE TEST ORDERABLE S Performing Organization Address City/State/ZIP Code Phon e Number [address] POCT Glucose (01/26/2022 4:31 PM EDT) athologist Signature POC Glucose 112 65 - 199 [facility] mg/dL [facility] LABORATORY Comment: Supplemental ranges: <140 mg/dL before meals <180 mg/dL all other times of the day Specimen Anatomical Collection Method Collection Time Receive d Time (Source) Location / / Volume Laterality Blood 01/26/2022 4:31 PM 2 4:31 EDT PM EDT Beck Sanz MD POINT OF CARE TEST ORDERABLE S Performing Organization Address City/State/ZIP Code Phon e Number [address] POCT Glucose (01/26/2022 2:00 PM EDT) athologist Signature POC Glucose 89 65 - 199 JOSH MANDO mg/dL [facility] LABORATORY Comment: Supplemental ranges: <140 mg/dL before meals <180 mg/dL all other times of the day Specimen Anatomical Collection Method Collection Time Receive d Time (Source) Location / / Volume Laterality Blood 01/26/2022 2:00 PM 2:00 EDT PM EDT Beck Sanz MD POINT OF CARE TEST ORDERABLE S Performing Organization Address City/State/[place] [address] (ABNORMAL) BLOOD GAS 2 VENOUS (01/26/2022 12:23 PM EDT) Analysis Performed At [facility] Time Signature pH Honorio 7.42 7.32 - [facility] 7.42 [facility] LABORATORY pCO2 Honorio 40 (L) 41 - 51 [facility] LABORATORY pO2 Honorio 33 25 - 40 [facility] LABORATORY HCO3 Honorio 25.4 mmol/L [facility] LABORATORY BE Honorio 1.0 mmol/L [facility] LABORATORY Hgb Blood Gas 12.1 (L) 13.7 - [facility] 16.5 g/dL [facility] LABORATORY O2HB Honorio 65.4 % [facility] LABORATORY COHB Honorio 0.7 % [facility] LABORATORY Comment: Nonsmokers: 0.5-1.5% COHB Smokers: Variable, but usually less than 10% Toxic: 20-30% COHB Lethal: Greater than 60% COHB METHB Honorio 0.1 <=1.5 % [facility] LABORATORY Na Whole Blood 130 (L) 135 - 145 mmol/L [facility] LABORATORY K Whole Blood 3.8 3.5 - 5.0 mmol/L [facility] LABORATORY Comment: Please note: Patients with WBC >100,000 may have falsely elevated Potassium levels. Contact the Clinical Chemistry L aboratory if there are any questions. ICa Whole Blood 1.16 1.15 - 1.33 mmol/L [facility] LABORATORY Comment: Note: ??Total bilirubin higher than 20 m g/dL may lead to falsely low ionized calcium. CL Whole Blood 102 98 - 107 mmol/L [facility] LABORATORY Gluc Whole Bld 115 65 - 199 mg/dL [facility] LABORATORY Comment: Diabetes: >=200 mg/dL plus symp toms Lactate WB 0.9 0.5 - 2.2 mmol/L [facility] LABORATORY FIO2 Honorio 21 % [facility] LABORATORY BGas Source Central Venous [facility] LABORATORY Specimen Anatomical Collection Method Collection Time Receive d Time (Source) Location / / Volume Laterality Blood 01/26/2022 12:23 01/26/2022 PM EDT 12:23 PM EDT Beck Sanz MD CHEMISTRY ORDERABLES Performing Organization Address City/State/ZIP Code Phon e Number [address] (ABNORMAL) CK (01/26/2022 12:22 PM EDT) athologist Signature CK, Total 25,802 (H) 0 - 200 [facility] unit/[facility] LABORATORY Specimen Anatomical Collection Method Collection Time Receive d Time (Source) Location / / Volume Laterality Blood 01/26/2022 12:22 01/26/2022 PM EDT 12:29 PM EDT Resulting Agency Comment Spec In Lab Cristina Hillman APRN CHEMISTRY ORDERABLES Performing Organization Address City/State/ZIP Code [place] [address] POCT Glucose (01/26/2022 12:05 PM EDT) athologist Signature POC Glucose 79 65 - 199 [facility] mg/dL [facility] LABORATORY Comment: Supplemental ranges: <140 mg/dL before meals <180 mg/dL all other times of the day Specimen Anatomical Collection Method Collection Time Receive d Time (Source) Location / / Volume Laterality Blood 01/26/2022 12:05 01/26/2022 PM EDT 12:05 PM EDT Beck Sanz MD POINT OF CARE TEST ORDERABLE S Performing Organization Address City/State/ZIP Code [place] [address] POCT Glucose (01/26/2022 11:08 AM EDT) athologist Signature POC Glucose 82 65 - 199 J[facility] MANDO mg/dL [facility] LABORATORY Comment: Supplemental ranges: <140 mg/dL before meals <180 mg/dL all other times of the day Specimen Anatomical Collection Method Collection Time Receive d Time (Source) Location / / Volume Laterality Blood 01/26/2022 11:08 01/26/2022 AM EDT 11:08 AM EDT Beck Sanz MD POINT OF CARE TEST ORDERABLE S Performing Organization Address City/State/ZIP Code [place] [address] (ABNORMAL) POCT Glucose (01/26/2022 10:15 AM EDT) athologist Signature POC Glucose 59 (L) 65 - 199 [facility] mg/dL [facility] LABORATORY Comment: Supplemental ranges: <140 mg/dL before meals <180 mg/dL all other times of the day Specimen Anatomical Collection Method Collection Time Receive d Time (Source) Location / / Volume Laterality Blood 01/26/2022 10:15 01/26/2022 AM EDT 10:15 AM EDT Beck Sanz MD POINT OF CARE TEST ORDERABLE S Performing Organization Address City/State/ZIP Code [place] [address] POCT Glucose (01/26/2022 8:58 AM EDT) athologist Signature POC Glucose 75 65 - 199 [facility] mg/dL [facility] LABORATORY Comment: Supplemental ranges: <140 mg/dL before meals <180 mg/dL all other times of the day Specimen Anatomical Collection Method Collection Time Receive d Time (Source) Location / / Volume Laterality Blood 01/26/2022 8:58 AM 8:58 EDT AM EDT Beck Sanz MD POINT OF CARE TEST ORDERABLE S Performing Organization Address City/State/ZIP [place] [address] (ABNORMAL) POCT Glucose (01/26/2022 8:20 AM EDT) athologist Signature POC Glucose 49 65 - 199 [facility] (Critical) mg/dL [facility] LABORATORY Comment: Supplemental ranges: <140 mg/dL before meals <180 mg/dL all other times of the day Specimen Anatomical Collection Method Collection Time Receive d Time (Source) Location / / Volume Laterality Blood 01/26/2022 8:20 AM 2 8:20 EDT AM EDT Beck Sanz MD POINT OF CARE TEST ORDERABLE S Performing Organization Address City/State/ZIP Code [place] [address] (ABNORMAL) CK (01/26/2022 6:15 AM EDT) athologist Signature CK, Total 27,357 (H) 0 - 200 [facility] unit/L [facility] LABORATORY Specimen Anatomical Collection Method Collection Time Receive d Time (Source) Location / / Volume Laterality Blood 01/26/2022 6:15 AM 2 6:21 EDT AM EDT Resulting Agency Comment Spec In Lab Cristina Hillman APRN CHEMISTRY ORDERABLES Performing Organization Address City/State/ZIP Code [place] [address] (ABNORMAL) BLOOD GAS 2 VENOUS (01/26/2022 5:59 AM EDT) Analysis Performed At Patho logist Time Signature pH Honorio 7.40 7.32 - [facility] 7.42 [facility] LABORATORY pCO2 Honorio 42 41 - 51 [facility] LABORATORY pO2 Honorio 32 25 - 40 [facility] LABORATORY HCO3 Honorio 25.9 mmol/L [facility] LABORATORY BE Honorio 1.1 mmol/L [facility] LABORATORY Hgb Blood Gas 12.5 (L) 13.7 - [facility] 16.5 g/dL [facility] LABORATORY O2HB Honorio 62.3 % [facility] LABORATORY COHB Honorio 0.6 % [facility] LABORATORY Comment: Nonsmokers: 0.5-1.5% COHB Smokers: Variable, but usually less than 10% Toxic: 20-30% COHB Lethal: Greater than 60% COHB METHB Honorio 0.2 <=1.5 % [facility] LABORATORY Na Whole Blood 132 (L) 135 - 145 mmol/L [facility] LABORATORY K Whole Blood 4.0 3.5 - 5.0 mmol/L [facility] LABORATORY Comment: Please note: Patients with WBC >100,000 may have falsely elevated Potassium levels. Contact the Clinical Chemistry L aboratory if there are any questions. ICa Whole Blood 1.18 1.15 - 1.33 mmol/L [facility] LABORATORY Comment: Note: ??Total bilirubin higher than 20 m g/dL may lead to falsely low ionized calcium. CL Whole Blood 103 98 - 107 mmol/L [facility] LABORATORY Gluc Whole Bld 95 65 - 199 mg/dL [facility] LABORATORY Comment: Diabetes: >=200 mg/dL plus symp toms Lactate WB 1.0 0.5 - 2.2 mmol/L [facility] LABORATORY FIO2 Honorio 21 % [facility] LABORATORY BGas Source Venous [facility] LABORATORY Specimen Anatomical Collection Method Collection Time Receive d Time (Source) Location / / Volume Laterality Blood 01/26/2022 5:59 AM 2 5:59 EDT AM EDT Beck Sanz MD CHEMISTRY ORDERABLES Performing Organization Address City/State/ZIP Code [place] [address] POCT Glucose (01/26/2022 5:09 AM EDT) P athologist Signature POC Glucose 103 65 - 199 [facility] mg/dL [facility] LABORATORY Comment: Supplemental ranges: <140 mg/dL before meals <180 mg/dL all other times of the day Specimen Anatomical Collection Method Collection Time Receive d Time (Source) Location / / Volume Laterality Blood 01/26/2022 5:09 AM 2 5:09 EDT AM EDT Beck Sanz MD POINT OF CARE TEST ORDERABLE S Performing Organization Address City/State/ZIP Code [place] [address] (ABNORMAL) POCT Glucose (01/26/2022 4:21 AM EDT) athologist Signature POC Glucose 61 (L) 65 - 199 [facility] mg/dL [facility] LABORATORY Comment: Supplemental ranges: <140 mg/dL before meals <180 mg/dL all other times of the day Specimen Anatomical Collection Method Collection Time Receive d Time (Source) Location / / Volume Laterality Blood 01/26/2022 4:21 AM 4:21 EDT AM EDT Beck Sanz MD POINT OF CARE TEST ORDERABLE S Performing Organization Address City/State/ZIP Code Phon e Number [address] (ABNORMAL) BLOOD GAS 2 VENOUS (01/26/2022 12:26 AM EDT) athologist Signature pH Honorio 7.38 7.32 - [facility] 7.42 [facility] LABORATORY pCO2 Honorio 47 41 - 51 [facility] LABORATORY pO2 Honorio 32 25 - 40 [facility] LABORATORY HCO3 Honorio 27.4 mmol/L [facility] LABORATORY BE Honorio 2.3 mmol/L [facility] LABORATORY Hgb Blood Gas 13.7 13.7 - [facility] 16.5 g/dL [facility] LABORATORY O2HB Honorio 60.6 % [facility] LABORATORY COHB Honorio 0.8 % [facility] LABORATORY Comment: Nonsmokers: 0.5-1.5% COHB Smokers: Variable, but usually less than 10% Toxic: 20-30% COHB Lethal: Greater than 60% COHB METHB Honorio 0.0 <=1.5 % [facility] LABORATORY Na Whole Blood 133 (L) 135 - 145 mmol/L [facility] LABORATORY K Whole Blood 4.3 3.5 - 5.0 mmol/L [facility] LABORATORY Comment: Please note: Patients with WBC >100,000 may have falsely elevated Potassium levels. Contact the Clinical Chemistry L aboratory if there are any questions. ICa Whole Blood 1.17 1.15 - 1.33 mmol/L [facility] LABORATORY Comment: Note: ??Total bilirubin higher than 20 m g/dL may lead to falsely low ionized calcium. CL Whole Blood 103 98 - 107 mmol/L [facility] LABORATORY Gluc Whole Bld 101 65 - 199 mg/dL [facility] LABORATORY Comment: Diabetes: >=200 mg/dL plus symp toms Lactate WB 1.3 0.5 - 2.2 mmol/L [facility] LABORATORY FIO2 Honorio 21 % [facility] LABORATORY BGas Source Venous [facility] LABORATORY Specimen Anatomical Collection Method Collection Time Receive d Time (Source) Location / / Volume Laterality Blood 01/26/2022 12:26 01/26/2022 AM EDT 12:26 AM EDT Beck Sanz MD CHEMISTRY ORDERABLES Performing Organization Address City/[facility]/ZIP Code [place] [address] Scan, Peripheral Blood (01/26/2022 12:20 AM EDT) Wingu Method Time Signature Plat Estimate Decreased [facility] LABORATORY RBC Morphology Abnormal [facility] LABORATORY Polychromasia Present >5/HPF [facility] LABORATORY Pappenheimer Bdy Present >1/HPF [facility] LABORATORY Specimen Anatomical Collection Method Collection Time Receive d Time (Source) Location / / Volume Laterality Blood 01/26/2022 12:20 01/26/2022 AM EDT 12:29 AM EDT Resulting Agency Comment Spec In Lab Cristina Hillman APRN HEMATOLOGY ORDERABLES Performing Organization Address City/State/ZIP [place] [address] (ABNORMAL) Differential, Automated (01/26/2022 12:20 AM EDT) Wingu Method Time Signature Neutrophils % 69.3 % [facility] LABORATORY Neutr Abs (ANC) 8.94 (H) 1.70 - [facility] 6.10 [facility] x10(3)/[facility] L LABORATORY Lymphocytes % 13.7 % [facility] LABORATORY Lymphocytes Abs 1.8 0.9 - 3.2 [facility] x10(3)/[facility] LABORATORY Monocytes % 5.7 % [facility] LABORATORY Monocyte Abs 0.7 0.3 - 0.9 [facility] x10(3)/[facility] LABORATORY Eosinophils % 2.0 % [facility] LABORATORY Eosinophils Abs 0.3 0.0 - 0.4 [facility] x10(3)/[facility] LABORATORY Basophils % 0.1 % [facility] LABORATORY Basophils Abs 0.0 0.0 - 0.1 [facility] x10(3)/[facility] LABORATORY Immature Gran % 9.20 % [facility] LABORATORY Comment: Immature granulocytes(IG's)percentage an d absolute count will include metamyelocytes, myelocytes, and promyelo cytes. Blood smears from CBCs yielding IG's will be scanned manually for concor dance. If this scan disagrees with the automated IG or if promyelocytes are not ed, a manual differential will be performed. Gemini Gran Abs 1.19 (H) 0.00 - 0.04 x10(3)/[facility] LABORATORY Specimen Anatomical Collection Method Collection Time Receive d Time (Source) Location / / Volume Laterality Blood 01/26/2022 12:20 01/26/2022 AM EDT 12:29 AM EDT Resulting Agency Comment Spec In Lab [facility] Performing Organization Address City/State/[place] [address] (ABNORMAL) Hemogram (01/26/2022 12:20 AM EDT) [facility] gist Method Time Signature WBC 12.9 (H) 4.0 - 9.5 [facility] x10(3)/[facility] LABORATORY RBC 3.53 (L) 4.58 - [facility] 5.54 [facility] x10(6)/[facility] LABORATORY Hemoglobin 11.5 (L) 13.7 - [facility] 16.5 g/dL [facility] LABORATORY Hematocrit 33.2 (L) 40.5 - [facility] 48.5 % [facility] LABORATORY MCV 94.1 (H) 82.9 - [facility] MANDO 93.1 [facility] LABORATORY MCH 32.6 (H) 27.5 - [facility] MAND[facility] 32.1 pg [facility] LABORATORY MCHC 34.6 32.0 - [facility] VELASQUEZMANDO 35.7 g/dL [facility] LABORATORY Platelets 115 (L) 145 - 357 [facility] MANDO x10(3)/[facility] LABORATORY RDWSD 43.1 36.0 - [facility] VELASQUEZMANDO 45.0 [facility] LABORATORY RDWCV 12.4 11.4 - [facility]ELASQUE[facility] 13.8 % [facility] LABORATORY MPV 10.6 7.6 - 12.9 [facility] VELASQUEZMANDO [facility] LABORATORY nRBC % Auto 0.2 % [facility] LABORATORY nRBC Abs Auto 0.020 (H) 0.000 - [place] [place] 0.000 [facility] x10(3)/[facility] LABORATORY Specimen Anatomical Collection Method Collection Time Receive d Time (Source) Location / / Volume Laterality Blood 01/26/2022 12:20 01/26/2022 AM EDT 12:29 AM EDT Resulting Agency Comment Spec In Lab Cristina Hillman APRN HEMATOLOGY ORDERABLES Performing Organization Address City/State/[place] [address] (ABNORMAL) Hepatic Function Panel (01/26/2022 12:20 AM EDT) P athologist Signature Total Protein 4.5 (L) 6.1 - 8.0 [facility] g/dL [facility] LABORATORY Albumin 2.3 (L) 3.2 - 5.2 [facility] g/dL [facility] LABORATORY AST 710 (H) 0 - 39 [facility] unit/L [facility] LABORATORY ALT 591 (H) 0 - 55 [facility] unit/L [facility] LABORATORY Alk Phos 56 40 - 130 [facility] unit/L [facility] LABORATORY Total 0.4 0.2 - 1.3 [facility] Bilirubin mg/dL [facility] LABORATORY Bili, Direct 0.2 0.0 - 0.3 [facility] mg/dL [facility] LABORATORY Specimen Anatomical Collection Method Collection Time Receive d Time (Source) Location / / Volume Laterality Blood 01/26/2022 12:20 01/26/2022 AM EDT 12:29 AM EDT Resulting Agency Comment Spec In Lab Jaquelinashley Sal Hillman APRN CHEMISTRY ORDERABLES Performing Organization Address City/State/[place] [address] (ABNORMAL) Basic Metabolic Panel (non-fasting) (01/26/2022 12:20 AM EDT) athologist Signature Glucose Lvl 104 65 - 199 [facility] mg/dL [facility] LABORATORY Comment: Diabetes: >=200 mg/dL plus symp toms BUN 26 (H) 10 - 20 mg/dL [facility] LABORATORY Creatinine 1.89 (H) 0.80 - 1.50 mg/dL [facility] LABORATORY Sodium 137 135 - 145 mmol/L [facility] LABORATORY Potassium 4.6 3.5 - 5.0 mmol/L [facility] LABORATORY Comment: Please note: ??Patients with WBC >100,00 0 may have falsely elevated Potassium levels. ??For accurate Potassium quantif ication in these patients send serum separator tube (gold top) for subsequent determinations. ??Contact the Clinical Chemistry Laboratory if there are any qu estions. Chloride 103 98 - 107 mmol/L [facility] LABORATORY CO2 27 22 - 31 mmol/L [facility] LABORATORY Anion Gap 7 5 - 15 mmol/L [facility] LABORATORY Calcium 8.3 (L) 8.5 - 10.5 mg/dL [facility] LABORATORY Estimated GFR 48 (L) >=60 mL/min/1.73 m?? [facility] LABORATORY Comment: This patient's estimated [...] Organization Address City/State/ZIP Code Phon e Number [address] Phosphorus (01/26/2022 12:20 AM EDT) P athologist Signature Phosphorus 3.0 2.5 - 4.5 [facility] mg/dL [facility] LABORATORY Specimen Anatomical Collection Method Collection Time Receive d Time (Source) Location / / Volume Laterality Blood 01/26/2022 12:20 01/26/2022 AM EDT 12:29 AM EDT Resulting Agency Comment Spec In Lab Gela Novak MD CHEMISTRY ORDERABLES Performing Organization Address City/[facility]/ZIP Code Phon e Number [address] Magnesium (01/26/2022 12:20 AM EDT) P athologist Signature Magnesium 0.85 0.69 - 1.07 [facility] mmol/L [facility] LABORATORY Specimen Anatomical Collection Method Collection Time Receive d Time (Source) Location / / Volume Laterality Blood 01/26/2022 12:20 01/26/2022 AM EDT 12:29 AM EDT Resulting Agency Comment Spec In Lab Gela Novak MD CHEMISTRY ORDERABLES Performing Organization Address City/[facility]/ZIP Code [place] [address] Triglyceride (01/26/2022 12:20 AM EDT) P athologist Signature Triglycerides 359 mg/dL [facility] LABORATORY Comment: Average Risk/Lower Risk: <150 mg/dL Borderline High Risk: 150-199 mg/dL High Risk: 200-499 mg/dL Very High Risk: >tu=896 mg/dL Specimen Anatomical Collection Method Collection Time Receive d Time (Source) Location / / Volume Laterality Blood 01/26/2022 12:20 01/26/2022 AM EDT 12:29 AM EDT Resulting Agency Comment Spec In Lab Beck Sanz MD CHEMISTRY ORDERABLES Performing Organization Address City/State/ZIP Code [place] [address] POCT Glucose (01/26/2022 12:01 AM EDT) athologist Signature POC Glucose 94 65 - 199 [facility] mg/dL [facility] LABORATORY Comment: Supplemental ranges: <140 mg/dL before meals <180 mg/dL all other times of the day Specimen Anatomical Collection Method Collection Time Receive d Time (Source) Location / / Volume Laterality Blood 01/26/2022 12:01 01/26/2022 AM EDT 12:01 AM EDT Beck Sanz MD POINT OF CARE TEST ORDERABLE S Performing Organization Address City/State/ZIP [place] [address] POCT Glucose (01/25/2022 8:08 PM EDT) athologist Signature POC Glucose 101 65 - 199 [facility] mg/dL [facility] LABORATORY Comment: Supplemental ranges: <140 mg/dL before meals <180 mg/dL all other times of the day Specimen Anatomical Collection Method Collection Time Receive d Time (Source) Location / / Volume Laterality Blood 01/25/2022 8:08 PM 8:08 EDT PM EDT Beck Sanz MD POINT OF CARE TEST ORDERABLE S Performing Organization Address City/State/ZIP Code Phon e Number [address] (ABNORMAL) BLOOD GAS 2 VENOUS (01/25/2022 6:07 PM EDT) athologist Signature pH Honorio 7.37 7.32 - [facility] 7.42 [facility] LABORATORY pCO2 Honorio 45 41 - 51 [facility] LABORATORY pO2 Honorio 31 25 - 40 [facility] LABORATORY HCO3 Honorio 25.5 mmol/L [facility] LABORATORY BE Honorio 0.2 mmol/L [facility] LABORATORY Hgb Blood Gas 14.1 13.7 - [facility] 16.5 g/dL [facility] LABORATORY O2HB Honorio 59.1 % [facility] LABORATORY COHB Honorio 1.3 % [facility] LABORATORY Comment: Nonsmokers: 0.5-1.5% COHB Smokers: Variable, but usually less than 10% Toxic: 20-30% COHB Lethal: Greater than 60% COHB METHB Honorio 0.0 <=1.5 % [facility] LABORATORY Na Whole Blood 132 (L) 135 - 145 mmol/L [facility] LABORATORY K Whole Blood 4.4 3.5 - 5.0 mmol/L [facility] LABORATORY Comment: Please note: Patients with WBC >100,000 may have falsely elevated Potassium levels. Contact the Clinical Chemistry L aboratory if there are any questions. ICa Whole Blood 1.20 1.15 - 1.33 mmol/L [facility] LABORATORY Comment: Note: ??Total bilirubin higher than 20 m g/dL may lead to falsely low ionized calcium. CL Whole Blood 102 98 - 107 mmol/L [facility] LABORATORY Gluc Whole Bld 119 65 - 199 mg/dL [facility] LABORATORY Comment: Diabetes: >=200 mg/dL plus symp toms Lactate WB 1.0 0.5 - 2.2 mmol/L [facility] LABORATORY FIO2 Honorio 21 % [facility] LABORATORY BGas Source Central Venous [facility] LABORATORY Specimen Anatomical Collection Method Collection Time Receive d Time (Source) Location / / Volume Laterality Blood 01/25/2022 6:07 PM 6:07 EDT PM EDT Beck Sanz MD CHEMISTRY ORDERABLES Performing Organization Address City/State/[place] [address] (ABNORMAL) CK (01/25/2022 6:00 PM EDT) athologist Signature CK, Total 32,675 (H) 0 - 200 [facility] unit/L [facility] LABORATORY Specimen Anatomical Collection Method Collection Time Receive d Time (Source) Location / / Volume Laterality Blood 01/25/2022 6:00 PM 2 6:12 EDT PM EDT Resulting Agency Comment Spec In Lab Cristina Hillman APRN CHEMISTRY ORDERABLES Performing Organization Address City/State/ZIP [place] [address] POCT Glucose (01/25/2022 4:09 PM EDT) athologist [facility] POC Glucose 103 65 - 199 [facility] mg/dL [facility] LABORATORY Comment: Supplemental ranges: <140 mg/dL before meals <180 mg/dL all other times of the day Specimen Anatomical Collection Method Collection Time Receive d Time (Source) Location / / Volume Laterality Blood 01/25/2022 4:09 PM 2 4:09 EDT PM EDT Beck Sanz MD POINT OF CARE TEST ORDERABLE S Performing Organization Address City/State/ZIP [place] [address] (ABNORMAL) BLOOD GAS 2 VENOUS (01/25/2022 11:59 AM EDT) Analysis Performed At Patho logist Time Signature pH Honorio 7.40 7.32 - [facility] 7.42 [facility] LABORATORY pCO2 Honorio 45 41 - 51 [facility] LABORATORY pO2 Honorio 34 25 - 40 [facility] LABORATORY HCO3 Honorio 27.0 mmol/L [facility] LABORATORY BE Honorio 2.2 mmol/L [facility] LABORATORY Hgb Blood Gas 12.2 (L) 13.7 - [facility] 16.5 g/dL [facility] LABORATORY O2HB Honorio 64.3 % [facility] LABORATORY COHB Honorio 0.2 % [facility] LABORATORY Comment: Nonsmokers: 0.5-1.5% COHB Smokers: Variable, but usually less than 10% Toxic: 20-30% COHB Lethal: Greater than 60% COHB METHB Honorio 0.3 <=1.5 % [facility] LABORATORY Na Whole Blood 132 (L) 135 - 145 mmol/L [facility] LABORATORY K Whole Blood 4.6 3.5 - 5.0 mmol/L [facility] LABORATORY Comment: Please note: Patients with WBC >100,000 may have falsely elevated Potassium levels. Contact the Clinical Chemistry L aboratory if there are any questions. ICa Whole Blood 1.22 1.15 - 1.33 mmol/L [facility] LABORATORY Comment: Note: ??Total bilirubin higher than 20 m g/dL may lead to falsely low ionized calcium. CL Whole Blood 103 98 - 107 mmol/L [facility] LABORATORY Gluc Whole Bld 115 65 - 199 mg/dL [facility] LABORATORY Comment: Diabetes: >=200 mg/dL plus symp toms Lactate WB 1.3 0.5 - 2.2 mmol/L [facility] LABORATORY FIO2 Honorio 21 % [facility] LABORATORY BGas Source Central Venous [facility] LABORATORY Specimen Anatomical Collection Method Collection Time Receive d Time (Source) Location / / Volume Laterality Blood 01/25/2022 11:59 01/25/2022 AM EDT 11:59 AM EDT Beck Sanz MD CHEMISTRY ORDERABLES Performing Organization Address City/State/[place] [address] POCT Glucose (01/25/2022 11:56 AM EDT) P athologist Signature POC Glucose 88 65 - 199 [facility] mg/dL [facility] LABORATORY Comment: Supplemental ranges: <140 mg/dL before meals <180 mg/dL all other times of the day Specimen Anatomical Collection Method Collection Time Receive d Time (Source) Location / / Volume Laterality Blood 01/25/2022 11:56 01/25/2022 AM EDT 11:56 AM EDT Beck Sanz MD POINT OF CARE TEST ORDERABLE S Performing Organization Address City/State/ZIP Code Phon e Number [address] Phosphorus (01/25/2022 11:55 AM EDT) P athologist Signature Phosphorus 2.7 2.5 - 4.5 [facility] [place] mg/dL [facility] LABORATORY Specimen Anatomical Collection Method Collection Time Receive d Time (Source) Location / / Volume Laterality Blood 01/25/2022 11:55 01/25/2022 AM EDT 12:05 PM EDT Resulting Agency Comment Spec In Lab Angelina Reynoso MD CHEMISTRY ORDERABLES Performing Organization Address City/State/ZIP Code Phon e Number [address] Magnesium (01/25/2022 11:55 AM EDT) P athologist Signature Magnesium 0.80 0.69 - 1.07 [facility] mmol/L [facility] LABORATORY Specimen Anatomical Collection Method Collection Time Receive d Time (Source) Location / / Volume Laterality Blood 01/25/2022 11:55 01/25/2022 AM EDT 12:05 PM EDT Resulting Agency Comment Spec In Lab Angelina Reynoso MD CHEMISTRY ORDERABLES Performing Organization Address City/State/ZIP Code Phon e Number [address] (ABNORMAL) Creatinine (01/25/2022 11:55 AM EDT) Analysis Performed At Patho logist Time Signature Creatinine 2.06 (H) 0.80 - [facility] [place] 1.50 mg/dL [facility] LABORATORY Estimated GFR 44 (L) >=60 [facility] [place] mL/min/1.7 [facility] 3 ?? [facility] LABORATORY Comment: [...] Reynoso MD CHEMISTRY ORDERABLES Performing Organization Address City/[facility]/ZIP Code Phon e Number [address] (ABNORMAL) BUN (01/25/2022 11:55 AM EDT) P athologist Signature BUN 28 (H) 10 - 20 [facility] mg/dL [facility] LABORATORY Specimen Anatomical Collection Method Collection Time Receive d Time (Source) Location / / Volume Laterality Blood 01/25/2022 11:55 01/25/2022 AM EDT 12:05 PM EDT Resulting Agency Comment Spec In Lab Angelina Reynoso MD CHEMISTRY ORDERABLES Performing Organization Address City/[facility]/ZIP Code [place] [address] Electrolytes panel (01/25/2022 11:55 AM EDT) P athologist Signature Sodium 137 135 - 145 [facility] mmol/L [facility] LABORATORY Potassium 4.7 3.5 - 5.0 [facility] mmol/L [facility] LABORATORY Comment: Please note: ??Patients with WBC >100,00 0 may have falsely elevated Potassium levels. ??For accurate Potassium quantif ication in these patients send serum separator tube (gold top) for subsequent determinations. ??Contact the Clinical Chemistry Laboratory if there are any qu estions. Chloride 104 98 - 107 mmol/L [facility] LABORATORY CO2 25 22 - 31 mmol/L [facility] LABORATORY Anion Gap 8 5 - 15 mmol/L [facility] LABORATORY Specimen Anatomical Collection Method Collection Time Receive d Time (Source) Location / / Volume Laterality Blood 01/25/2022 11:55 01/25/2022 AM EDT 12:05 PM EDT Resulting Agency Comment Spec In Lab Angelina Reynoso MD CHEMISTRY ORDERABLES Performing Organization Address City/State/ZIP Code [place] [address] (ABNORMAL) CK (01/25/2022 11:55 AM EDT) athologist [facility] CK, Total 36,897 (H) 0 - 200 [facility] Specimen Anatomical Collection Method Collection Time Receive d Time (Source) Location / / Volume Laterality Blood 01/25/2022 11:55 01/25/2022 AM EDT 12:05 PM EDT Resulting Agency Comment Spec In Lab Gemma B Pentland WHITE LEAD FILTERER CHEMISTRY ORDERABLES Performing Organization Address City/[facility]/ZIP Code [place] [address] POCT Glucose (01/25/2022 8:31 AM EDT) [facility] POC Glucose 113 65 - 199 [facility] mg/dL [facility] LABORATORY Comment: Supplemental ranges: <140 mg/dL before meals <180 mg/dL all other times of the day Specimen Anatomical Collection Method Collection Time Receive d Time (Source) Location / / Volume Laterality Blood 01/25/2022 8:31 AM 2 8:31 EDT AM EDT Tex Robles MD POINT OF CARE TEST ORDERABLE S Performing Organization Address City/State/ZIP [place] [address] (ABNORMAL) CK (01/25/2022 8:20 AM EDT) athologist [facility] CK, Total 36,878 (H) 0 - 200 [facility] LABORATORY Specimen Anatomical Collection Method Collection Time Receive d Time (Source) Location / / Volume Laterality Blood 01/25/2022 8:20 AM 2 8:37 EDT AM EDT Resulting Agency Comment Spec In Lab Gemma B Pentland WHITE LEAD FILTERER CHEMISTRY ORDERABLES Performing Organization Address City/State/ZIP Code [place] [address] (ABNORMAL) BLOOD GAS 2 ARTERIAL (01/25/2022 6:22 AM EDT) Analysis Performed At Patho logist Time Signature pH Art 7.45 7.35 - [facility] 7.45 [facility] LABORATORY pCO2 Art 33 (L) 35 - 45 [facility] mmHg [facility] LABORATORY pO2 Art 114 (H) 85 - 104 [facility] LABORATORY HCO3 Art 22.4 20.0 - [facility] 26.0 [facility] mmol/L [facility] LABORATORY BE Art -1.6 -3.0 - 3.0 [facility] mmol/L [facility] LABORATORY Hgb Blood Gas 13.3 (L) 13.7 - [facility] 16.5 g/dL [facility] O2HB Art 97.0 94.0 - [facility] 97.0 % [facility] LABORATORY COHB Art 0.3 % [facility] LABORATORY Comment: Nonsmokers: 0.5-1.5% COHB Smokers: Variable, but usually less than 10% Toxic: 20-30% COHB Lethal: Greater than 60% COHB METHB Art 0.2 <=1.5 % [facility] LABORATORY Na Whole Blood 131 (L) 135 - 145 mmol/L [facility] LABORATORY K Whole Blood 5.0 3.5 - 5.0 mmol/L [facility] LABORATORY Comment: Please note: Patients with WBC >100,000 may have falsely elevated Potassium levels. Contact the Clinical Chemistry L aboratory if there are any questions. ICa Whole Blood 1.21 1.15 - 1.33 mmol/L [facility] LABORATORY Comment: Note: ??Total bilirubin higher than 20 m g/dL may lead to falsely low ionized calcium. CL Whole Blood 103 98 - 107 mmol/L [facility] LABORATORY Gluc Whole Bld 122 65 - 199 mg/dL [facility] LABORATORY Comment: Diabetes: >=200 mg/dL plus symp toms. Lactate WB 1.3 0.5 - 2.2 mmol/L [facility] LABORATORY FIO2 Art 35 % [facility] LABORATORY PF Ratio Art 326 [facility] LABORATORY Specimen Anatomical Collection Method Collection Time Receive d Time (Source) Location / / Volume Laterality Blood 01/25/2022 6:22 AM 2 6:22 EDT AM EDT Tex Robles MD CHEMISTRY ORDERABLES Performing Organization Address City/[facility]/ZIP Code Phon e Number [address] POCT Glucose (01/25/2022 3:49 AM EDT) P athologist Signature POC Glucose 121 65 - 199 [facility] mg/dL [facility] LABORATORY Comment: Supplemental ranges: <140 mg/dL before meals <180 mg/dL all other times of the day Specimen Anatomical Collection Method Collection Time Receive d Time (Source) Location / / Volume Laterality Blood 01/25/2022 3:49 AM 2 3:49 EDT AM EDT Tex Robles MD POINT OF CARE TEST ORDERABLE S Performing Organization Address City/[facility]/ZIP Code [place] [address] Scan, Peripheral Blood (01/25/2022 12:30 AM EDT) [facility] [employer] Method Time Signature Plat Estimate Decreased [facility] LABORATORY RBC Morphology Normal [facility] LABORATORY Specimen Anatomical Collection Method Collection Time Receive d Time (Source) Location / / Volume Laterality Blood 01/25/2022 12:30 01/25/2022 AM EDT 12:39 AM EDT Resulting Agency Comment Spec In Lab Cristina Hillman APRN HEMATOLOGY ORDERABLES Performing Organization Address City/[facility]/ZIP Code Phon e Number [address] (ABNORMAL) Differential, Automated (01/25/2022 12:30 AM EDT) [facility] [employer] Method Time Signature Neutrophils % 77.1 % [facility] LABORATORY Neutr Abs (ANC) 6.61 (H) 1.70 - [facility] 6.10 [facility] x10(3)/[facility] L LABORATORY Lymphocytes % 12.9 % [facility] LABORATORY Lymphocytes Abs 1.1 0.9 - 3.2 [facility] x10(3)/[facility] LABORATORY Monocytes % 7.5 % [facility] LABORATORY Monocyte Abs 0.6 0.3 - 0.9 [facility] x10(3)/[facility] LABORATORY Eosinophils % 0.3 % [facility] LABORATORY Eosinophils Abs 0.0 0.0 - 0.4 [facility] x10(3)/[facility] LABORATORY Basophils % 0.3 % [facility] LABORATORY Basophils Abs 0.0 0.0 - 0.1 [facility] x10(3)/[facility] LABORATORY Immature Gran % 1.90 % [facility] LABORATORY Comment: Immature granulocytes(IG's)percentage an d absolute count will include metamyelocytes, myelocytes, and promyelo cytes. Blood smears from CBCs yielding IG's will be scanned manually for concor dance. If this scan disagrees with the automated IG or if promyelocytes are not ed, a manual differential will be performed. Gemini Gran Abs 0.16 (H) 0.00 - 0.04 x10(3)/[facility] LABORATORY Specimen Anatomical Collection Method Collection Time Receive d Time (Source) Location / / Volume Laterality Blood 01/25/2022 12:30 01/25/2022 AM EDT 12:39 AM EDT Resulting Agency Comment Spec In Lab Cristina Hillman APRN HEMATOLOGY ORDERABLES Performing Organization Address City/State/[place] [address] (ABNORMAL) Hemogram (01/25/2022 12:30 AM EDT) Analysis Performed At Patho logist Time Signature WBC 8.6 4.0 - 9.5 [facility] x10(3)/[facility] LABORATORY RBC 3.39 (L) 4.58 - [facility] 5[facility]54 [facility] x10(6)/[facility] LABORATORY Hemoglobin 11.0 (L) 13.7 - [facility] 16.5 g/dL [facility] LABORATORY Hematocrit 31.2 (L) 40.5 - [facility] 48.5 % [facility] LABORATORY MCV 92.0 82.9 - [facility] 93.1 [facility] LABORATORY MCH 32.4 (H) 27.5 - [facility] [place] 32.1 pg [facility] LABORATORY MCHC 35.3 32.0 - [facility] [place] 35.7 g/dL [facility] LABORATORY Platelets 88 (L) 145 - 357 [facility] x10(3)/[facility] LABORATORY RDWSD 41.2 36.0 - [facility] 45.0 [facility] LABORATORY RDWCV 12.2 11.4 - [facility] 13.8 % [facility] LABORATORY MPV 10.6 7.6 - 12.9 [facility] nRBC % Auto 0.0 % [facility] LABORATORY nRBC Abs Auto 0.000 0.000 - [facility] 0.000 [facility] x10(3)/[facility] LABORATORY Specimen Anatomical Collection Method Collection Time Receive d Time (Source) Location / / Volume Laterality Blood 01/25/2022 12:30 01/25/2022 AM EDT 12:39 AM EDT Resulting Agency Comment Spec In Lab Gemma B Pentland WHITE LEAD FILTERER HEMATOLOGY ORDERABLES Performing Organization Address City/State/ZIP [place] [address] (ABNORMAL) CK (01/25/2022 12:30 AM EDT) P athologist Signature CK, Total 42,239 (H) 0 - 200 [facility] unit/L [facility] LABORATORY Specimen Anatomical Collection Method Collection Time Receive d Time (Source) Location / / Volume Laterality Blood 01/25/2022 12:30 01/25/2022 AM EDT 12:39 AM EDT Resulting Agency Comment Spec In Lab Gemma B Pentland WHITE LEAD FILTERER CHEMISTRY ORDERABLES Performing Organization Address City/State/ZIP Code Phon e Number [address] (ABNORMAL) Hepatic Function Panel (01/25/2022 12:30 AM EDT) P athologist Signature Total Protein 4.1 (L) 6.1 - 8.0 [facility] g/dL [facility] LABORATORY Albumin 2.0 (L) 3.2 - 5.2 [facility] g/dL [facility] LABORATORY AST 797 (H) 0 - 39 [facility] unit/L [facility] LABORATORY ALT 583 (H) 0 - 55 [facility] unit/L [facility] LABORATORY Alk Phos 51 40 - 130 [facility] unit/L [facility] LABORATORY Total 0.3 0.2 - 1.3 [facility] Bilirubin mg/dL [facility] LABORATORY Bili, Direct 0.1 0.0 - 0.3 [facility] mg/dL [facility] LABORATORY Specimen Anatomical Collection Method Collection Time Receive d Time (Source) Location / / Volume Laterality Blood 01/25/2022 12:30 01/25/2022 AM EDT 12:39 AM EDT Resulting Agency Comment Spec In Lab Cristina Hillman APRN CHEMISTRY ORDERABLES Performing Organization Address City/State/ZIP [place] [address] (ABNORMAL) Basic Metabolic Panel (non-fasting) (01/25/2022 12:30 AM EDT) athologist Signature Glucose Lvl 129 65 - 199 [facility] mg/dL [facility] LABORATORY Comment: Diabetes: >=200 mg/dL plus symp toms BUN 30 (H) 10 - 20 mg/dL [facility] LABORATORY Creatinine 2.39 (H) 0.80 - 1.50 mg/dL [facility] LABORATORY Sodium 135 135 - 145 mmol/L [facility] LABORATORY Potassium 5.0 3.5 - 5.0 mmol/L [facility] LABORATORY Comment: Please note: ??Patients with WBC >100,00 0 may have falsely elevated Potassium levels. ??For accurate Potassium quantif ication in these patients send serum separator tube (gold top) for subsequent determinations. ??Contact the Clinical Chemistry Laboratory if there are any qu estions. Chloride 105 98 - 107 mmol/L [facility] LABORATORY CO2 24 22 - 31 mmol/L [facility] LABORATORY Anion Gap 6 5 - 15 mmol/L [facility] LABORATORY Calcium 8.2 (L) 8.5 - 10.5 mg/dL [facility] LABORATORY Estimated GFR 36 (L) >=60 mL/min/1.73 m?? [facility] LABORATORY Comment: This patient's estimated [...] Organization Address City/State/ZIP Code Phon e Number [address] Phosphorus (01/25/2022 12:30 AM EDT) P athologist Signature Phosphorus 3.9 2.5 - 4.5 [facility] mg/dL [facility] LABORATORY Specimen Anatomical Collection Method Collection Time Receive d Time (Source) Location / / Volume Laterality Blood 01/25/2022 12:30 01/25/2022 AM EDT 12:39 AM EDT Resulting Agency Comment Spec In Lab Gela Novak MD CHEMISTRY ORDERABLES Performing Organization Address City/State/ZIP Code Phon e Number [address] Magnesium (01/25/2022 12:30 AM EDT) P athologist Signature Magnesium 0.89 0.69 - 1.07 [facility] mmol/L [facility] LABORATORY Specimen Anatomical Collection Method Collection Time Receive d Time (Source) Location / / Volume Laterality Blood 01/25/2022 12:30 01/25/2022 AM EDT 12:39 AM EDT Resulting Agency Comment Spec In Lab Gela Novak MD CHEMISTRY ORDERABLES Performing Organization Address City/State/ZIP Code Phon e Number [address] POCT Glucose (01/25/2022 12:19 AM EDT) athologist Signature POC Glucose 126 65 - 199 [facility] mg/dL [facility] LABORATORY Comment: Supplemental ranges: <140 mg/dL before meals <180 mg/dL all other times of the day Specimen Anatomical Collection Method Collection Time Receive d Time (Source) Location / / Volume Laterality Blood 01/25/2022 12:19 01/25/2022 AM EDT 12:19 AM EDT Tex Robles MD POINT OF CARE TEST ORDERABLE S Performing Organization Address City/[facility]/ZIP Code [place] [address] Angiogram Carotids (01/24/2022 [...] who have questions please contact the health wound care center consultant that requested your imaging first. ? Narrative 01/25/2022 10:26 AM EDT EXAMINATION: CT ANGIOGRAM [place], [place] ANGIOGRAM CAROTIDS CLINICAL HISTORY: [...] different from the original. EXAMINATION: CT ANGIOGRAM [place] ANGIOGRAM CAROTIDS CLINICAL [...] ho have questions please contact the health wound care center consultant that requested your imaging first. Agnieszka López WHITE LEAD FILTERER IMG CT ORDERABLES CT Angiogram [place] (01/24/2022 11:32 PM EDT) Anatomical [...] who have questions please contact the health wound care center consultant that requested your imaging first. ? Narrative 01/25/2022 10:26 AM EDT EXAMINATION: CT ANGIOGRAM [place], [place] ANGIOGRAM CAROTIDS CLINICAL HISTORY: [...] different from the original. EXAMINATION: CT ANGIOGRAM [place], [place] ANGIOGRAM CAROTIDS CLINICAL [...] ho have questions please contact the health wound care center consultant that requested your imaging first. Agnieszkaelieso López APRN IMG CT ORDERABLES POCT Glucose (01/24/2022 8:11 PM EDT) athologist Signature POC Glucose 135 65 - 199 [facility] mg/dL [facility] LABORATORY Comment: Supplemental ranges: <140 mg/dL before meals <180 mg/dL all other times of the day Specimen Anatomical Collection Method Collection Time Receive d Time (Source) Location / / Volume Laterality Blood 01/24/2022 8:11 PM 2 8:11 EDT PM EDT Tex Robles MD POINT OF CARE TEST ORDERABLE S Performing Organization Address City/State/ZIP [place] [address] (ABNORMAL) CK (01/24/2022 6:20 PM EDT) athologist Signature CK, Total 50,445 (H) 0 - 200 [facility] unit/[facility] LABORATORY Specimen Anatomical Collection Method Collection Time Receive d Time (Source) Location / / Volume Laterality Blood 01/24/2022 6:20 PM 2 6:27 EDT PM EDT Resulting Agency Comment Spec In Lab Cristina Hillman WHITE LEAD FILTERER CHEMISTRY ORDERABLES Performing Organization Address City/State/ZIP [place] [address] MRI Brain wo Contrast [...] who have questions please contact the health wound care center consultant that requested your imaging first. ? Narrative [...] ho have questions please contact the health wound care center consultant that requested your imaging first. Cristina Hillman WHITE LEAD FILTERER IMG MRI ORDERABLES MRSA PCR (01/24/2022 1:10 PM EDT) [facility] gist Method Time Signature MRSA Result Negative Negative [facility] LABORATORY MRSA Interp Negative for methicillin-resistant Staphylococcus aureus (MRSA) [facility] This test was performed using the GeneXM:Metrics?? Dx System an d the Xpert MRSA MEMORIAL Assay. The MRSA target DNA was not detec karina. The sample processing control and HOSPITAL probe check were valid. The performance of this test was determined by the [facility] LABORATORY Molecular Pathology Laboratory. It has been maximus red by the U.S. Food and Drug Administration for clinical use. Comment: [VERIFIED DATE]01.25.22 Verified By:Alfonso Soto (Electronic Signature) Specimen (Source) Anatomical Collection Method Collection Time Re ceived Time Location / / Volume Laterality Nasopharyngeal Swab 01/24/2022 1:10 01/25 PM EDT 7:30 AM EDT Resulting Agency Comment Spec In Lab Agnieszka López WHITE LEAD FILTERER MICROBIOLOGY - GENERAL ORDER JT Performing Organization Address City/State/[place] [address] (ABNORMAL) CK (01/24/2022 12:14 PM EDT) athologist Signature CK, Total 61,457 (H) 0 - 200 [facility] unit/L [facility] LABORATORY Specimen Anatomical Collection Method Collection Time Receive d Time (Source) Location / / Volume Laterality Blood 01/24/2022 12:14 01/24/2022 1:00 PM EDT PM EDT Resulting Agency Comment Spec In Lab Gemma B Rafy WHITE LEAD FILTERER CHEMISTRY ORDERABLES Performing Organization Address City/State/ZIP Code Phon e Number [address] POCT Glucose (01/24/2022 12:13 PM EDT) P athologist Signature POC Glucose 132 65 - 199 [facility] mg/dL [facility] LABORATORY Comment: Supplemental ranges: <140 mg/dL before meals <180 mg/dL all other times of the day Specimen Anatomical Collection Method Collection Time Receive d Time (Source) Location / / Volume Laterality Blood 01/24/2022 12:13 01/24/2022 PM EDT 12:13 PM EDT Tex Robles MD POINT OF CARE TEST ORDERABLE S Performing Organization Address City/State/ZIP [place] [address] ECHOCARDIOGRAM COMPLETE W CONTRAST (01/24/2022 9:30 AM EDT) Anatomical Region Laterality Modality Cardiac Other Specimen (Source) Anatomical Collection Method Collection Time Re ceived Time Location / / Volume Laterality 01/23/2022 12:16 PM EDT Narrative 01/24/2022 11:52 AM EDT [facility] ?[address] ? [place] [address] ?Voice: ?Fax: ? Echocardiogram Report Name: ALIX HOLLAND ?Study Date : 01/23/2022 12:16 PM ?BP: 96/65 mmHg ?Patient Location: [address] A : 1990 ?Height: 183 cm ? Account: [id number] Age: 31 yrs ?Weigh t: 102 kg [...] 05/03/2018, the prior LVEF was normal. Procedure Complete-[id number]. Right ventricular strain . Image enhancement Optison [...] note might be different from the original. [facility] [address] [place] [address] Voice: Fax: Echocardiogram Report Name: ALIX HOLLAND Study Date: 2021 12:16 PM BP: 96/65 mmHg Patient Location: [address] : 1990 Height: 183 cm Account: [id number] Age: 31 yrs Weight: 102 kg Gender: [...] 05/03/2018, the prior LVEF was normal. Procedure Complete-[id number]. Right ventricular strain . Image enhancement Optison [...] Signature POC Glucose 122 65 - 199 [facility] mg/dL [facility] LABORATORY Comment: Supplemental ranges: <140 mg/dL before meals <180 mg/dL all other times of the day Specimen Anatomical Collection Method Collection Time Receive d Time (Source) Location / / Volume Laterality Blood 01/24/2022 8:39 AM 2 8:39 EDT AM EDT Tex Robles MD POINT OF CARE TEST ORDERABLE S Performing Organization Address City/State/ZIP [place] [address] (ABNORMAL) CK (01/24/2022 6:25 AM EDT) athologist [facility] CK, Total 84,528 (H) 0 - 200 [facility] unit/L [facility] LABORATORY Specimen Anatomical Collection Method Collection Time Receive d Time (Source) Location / / Volume Laterality Blood 01/24/2022 6:25 AM 2 6:40 EDT AM EDT Resulting Agency Comment Spec In Lab Tex Robles MD CHEMISTRY ORDERABLES Performing Organization Address City/State/ZIP [place] [address] Electrolytes panel (01/24/2022 6:25 AM EDT) athologist Signature Sodium 136 135 - 145 [facility] mmol/L [facility] LABORATORY Potassium 4.4 3.5 - 5.0 [facility] mmol/L [facility] LABORATORY Comment: Please note: ??Patients with WBC >100,00 0 may have falsely elevated Potassium levels. ??For accurate Potassium quantif ication in these patients send serum separator tube (gold top) for subsequent determinations. ??Contact the Clinical Chemistry Laboratory if there are any qu estions. Chloride 103 98 - 107 mmol/L [facility] LABORATORY CO2 22 22 - 31 mmol/L [facility] LABORATORY Anion Gap 11 5 - 15 mmol/L [facility] LABORATORY Specimen Anatomical Collection Method Collection Time Receive d Time (Source) Location / / Volume Laterality Blood 01/24/2022 6:25 AM 6:40 EDT AM EDT Resulting Agency Comment Spec In Lab Angelina Reynoso MD CHEMISTRY ORDERABLES Performing Organization Address City/State/[place] [address] (ABNORMAL) Blood Gas Arterial ([facility]) (01/24/2022 6:20 AM EDT) Analysis Performed At Patho logist Time Signature pH Art 7.48 (H) 7.35 - [facility] 7.45 [facility] LABORATORY pCO2 Art 29 (L) 35 - 45 [facility] LABORATORY pO2 Art 68 (L) 85 - 104 [facility] LABORATORY HCO3 Art 21.1 20.0 - [facility] 26.0 [facility] mmol/[facility] LABORATORY BE Art -2.3 -3.0 - 3.0 [facility] mmol/L [facility] LABORATORY Hgb Blood Gas 14.7 13.7 - [facility] 16.5 g/dL [facility] LABORATORY O2HB Art 91.8 (L) 94.0 - [facility] 97.0 % [facility] LABORATORY COHB Art 0.8 % [facility] LABORATORY Comment: Nonsmokers: ??0.5-1.5% COHB Smokers: ??Variable, but usually less th an 10% Toxic: 20 - 30% COHB Lethal: ??Greater than 60% COHB METHB Art 0.3 <=1.5 % [facility] LABORATORY Na Whole Blood 133 (L) 135 - 145 mmol/L [facility] LABORATORY K Whole Blood 4.3 3.5 - 5.0 mmol/L [facility] LABORATORY Comment: Please note: ??Patients with WBC >100,00 0 may have falsely elevated Potassium levels. ??Contact the Clinical Chemistry Laboratory if there are any questions. ICa Whole Blood 1.16 1.15 - 1.33 mmol/L [facility] LABORATORY Comment: Note: ??Total bilirubin higher than 20 m g/dL may lead to falsely low ionized calcium. CL Whole Blood 103 98 - 107 mmol/L [facility] LABORATORY Gluc Whole Bld 134 65 - 199 mg/dL [facility] LABORATORY Comment: Diabetes: >=200 mg/dL plus symp toms. Lactate WB 1.9 0.5 - 2.2 mmol/L [facility] LABORATORY Specimen Anatomical Collection Method Collection Time Receive d Time (Source) Location / / Volume Laterality Blood Arterial Draw / 01/24/2022 6:20 AM 2021 6:30 Unknown EDT AM EDT Resulting Agency Comment Spec In Lab Angelina Reynoso MD CHEMISTRY ORDERABLES Performing Organization Address City/[facility]/ZIP Code [place] [address] POCT Glucose (01/24/2022 4:06 AM EDT) P athologist Signature POC Glucose 103 65 - 199 [facility] mg/dL [facility] LABORATORY Comment: Supplemental ranges: <140 mg/dL before meals <180 mg/dL all other times of the day Specimen Anatomical Collection Method Collection Time Receive d Time (Source) Location / / Volume Laterality Blood 01/24/2022 4:06 AM 4:06 EDT AM EDT Tex Robles MD POINT OF CARE TEST ORDERABLE S Performing Organization Address City/[facility]/ZIP [place] [address] (ABNORMAL) Differential, Automated (01/24/2022 12:18 AM EDT) Patholo gist Method Time Signature Neutrophils % 77.0 % [facility] LABORATORY Neutr Abs (ANC) 8.76 (H) 1.70 - [facility] 6.10 [facility] x10(3)/[facility] L LABORATORY Lymphocytes % 13.0 % [facility] LABORATORY Lymphocytes Abs 1.5 0.9 - 3.2 [facility] x10(3)/[facility] LABORATORY Monocytes % 8.0 % [facility] LABORATORY Monocyte Abs 0.9 0.3 - 0.9 [facility] x10(3)/[facility] LABORATORY Eosinophils % 0.4 % [facility] LABORATORY Eosinophils Abs 0.0 0.0 - 0.4 [facility] x10(3)/[facility] LABORATORY Basophils % 0.4 % [facility] LABORATORY Basophils Abs 0.0 0.0 - 0.1 [facility] x10(3)/[facility] LABORATORY Immature Gran % 1.20 % [facility] LABORATORY Comment: Immature granulocytes(IG's)percentage an d absolute count will include metamyelocytes, myelocytes, and promyelo cytes. Blood smears from CBCs yielding IG's will be scanned manually for concor dance. If this scan disagrees with the automated IG or if promyelocytes are not ed, a manual differential will be performed. Gemini Gran Abs 0.14 (H) 0.00 - 0.04 x10(3)/[facility] LABORATORY Specimen Anatomical Collection Method Collection Time Receive d Time (Source) Location / / Volume Laterality Blood 01/24/2022 12:18 01/24/2022 AM EDT 12:25 AM EDT Resulting Agency Comment Spec In Lab Cristina Hillman APRN HEMATOLOGY ORDERABLES Performing Organization Address City/State/[place] [address] (ABNORMAL) Hemogram (01/24/2022 12:18 AM EDT) Analysis Performed At Patho logist Time Signature WBC 11.4 (H) 4.0 - 9.5 [facility] x10(3)/[facility] LABORATORY RBC 4.66 4.58 - [facility] 5.54 [facility] x10(6)/[facility] LABORATORY Hemoglobin 14.8 13.7 - [facility] 16[facility] g/dL [facility] LABORATORY Hematocrit 41.7 40.5 - [facility] 48.5 % [facility] LABORATORY MCV 89.5 82.9 - [facility] 93.1 [facility] LABORATORY MCH 31.8 27.5 - [facility] 32.1 pg [facility] LABORATORY MCHC 35.5 32.0 - [facility] 35.7 g/dL [facility] LABORATORY Platelets 136 (L) 145 - 357 [facility] x10(3)/[facility] LABORATORY RDWSD 40.0 36.0 - [facility] 45.0 [facility] LABORATORY RDWCV 12.3 11.4 - [facility] 13.8 % [facility] LABORATORY MPV 10.1 7.6 - 12.9 [facility] LABORATORY nRBC % Auto 0.0 % [facility] LABORATORY nRBC Abs Auto 0.000 0.000 - [facility] 0.000 [facility] x10(3)/[facility] LABORATORY Specimen Anatomical Collection Method Collection Time Receive d Time (Source) Location / / Volume Laterality Blood 01/24/2022 12:18 01/24/2022 AM EDT 12:25 AM EDT Resulting Agency Comment Spec In Lab Cristina Hillman WHITE LEAD FILTERER HEMATOLOGY ORDERABLES Performing Organization Address City/State/[place] [address] (ABNORMAL) Basic Metabolic Panel (non-fasting) (01/24/2022 12:18 AM EDT) P athologist Signature Glucose Lvl 164 65 - 199 [facility] mg/dL [facility] LABORATORY Comment: Diabetes: >=200 mg/dL plus symp toms BUN 31 (H) 10 - 20 mg/dL [facility] LABORATORY Creatinine 3.00 (H) 0.80 - 1.50 mg/dL [facility] LABORATORY Sodium 138 135 - 145 mmol/L [facility] LABORATORY Potassium 4.7 3.5 - 5.0 mmol/L [facility] LABORATORY Comment: Please note: ??Patients with WBC >100,00 0 may have falsely elevated Potassium levels. ??For accurate Potassium quantif ication in these patients send serum separator tube (gold top) for subsequent determinations. ??Contact the Clinical Chemistry Laboratory if there are any qu estions. Chloride 103 98 - 107 mmol/L [facility] LABORATORY CO2 21 (L) 22 - 31 mmol/L [facility] LABORATORY Anion Gap 14 5 - 15 mmol/L [facility] LABORATORY Calcium 8.0 (L) 8.5 - 10.5 mg/dL [facility] LABORATORY Comment: result rechecked-trb Estimated GFR 28 (L) >=60 mL/min/1.73 m?? [facility] LABORATORY Comment: This patient's estimated [...] Han DO CHEMISTRY ORDERABLES Performing Organization Address City/[facility]/ZIP Code Phon e Number [address] Phosphorus (01/24/2022 12:18 AM EDT) P athologist Signature Phosphorus 4.5 2.5 - 4.5 [facility] mg/dL [facility] LABORATORY Specimen Anatomical Collection Method Collection Time Receive d Time (Source) Location / / Volume Laterality Blood 01/24/2022 12:18 01/24/2022 AM EDT 12:25 AM EDT Resulting Agency Comment Spec In Lab Gela Novak MD CHEMISTRY ORDERABLES Performing Organization Address City/[facility]/ZIP Code Phon e Number [address] Magnesium (01/24/2022 12:18 AM EDT) P athologist Signature Magnesium 0.92 0.69 - 1.07 [facility] mmol/L [facility] LABORATORY Specimen Anatomical Collection Method Collection Time Receive d Time (Source) Location / / Volume Laterality Blood 01/24/2022 12:18 01/24/2022 AM EDT 12:25 AM EDT Resulting Agency Comment Spec In Lab Gela Novak MD CHEMISTRY ORDERABLES Performing Organization Address City/[facility]/ZIP Code Phon e Number [address] (ABNORMAL) Hepatic Function Panel (01/24/2022 12:18 AM EDT) Patholo gist Method Time Signature Total Protein 4.5 (L) 6.1 - 8.0 [facility] g/dL [facility] LABORATORY Albumin 2.2 (L) 3.2 - 5.2 [facility] g/dL [facility] LABORATORY AST 1,181 (H) 0 - 39 [facility] unit/L [facility] LABORATORY ALT 682 (H) 0 - 55 [facility] unit/L [facility] LABORATORY Alk Phos 65 40 - 130 [facility] unit/L [facility] LABORATORY Total 0.5 0.2 - 1.3 [facility] Bilirubin mg/dL [facility] LABORATORY Bili, Direct 0.2 0.0 - 0.3 [facility] mg/dL [facility] LABORATORY Specimen Anatomical Collection Method Collection Time Receive d Time (Source) Location / / Volume Laterality Blood 01/24/2022 12:18 01/24/2022 AM EDT 12:25 AM EDT Resulting Agency Comment Spec In Lab Cristina Hillman APRN CHEMISTRY ORDERABLES Performing Organization Address City/[facility]/ZIP Code [place] [address] (ABNORMAL) Electrolytes panel (01/24/2022 12:18 AM EDT) athologist Signature Sodium 138 135 - 145 [facility] mmol/L [facility] LABORATORY Potassium 4.7 3.5 - 5.0 [facility] mmol/L [facility] LABORATORY Comment: Please note: ??Patients with WBC >100,00 0 may have falsely elevated Potassium levels. ??For accurate Potassium quantif ication in these patients send serum separator tube (gold top) for subsequent determinations. ??Contact the Clinical Chemistry Laboratory if there are any qu estions. Chloride 103 98 - 107 mmol/L [facility] LABORATORY CO2 21 (L) 22 - 31 mmol/L [facility] LABORATORY Anion Gap 14 5 - 15 mmol/L [facility] LABORATORY Specimen Anatomical Collection Method Collection Time Receive d Time (Source) Location / / Volume Laterality Blood 01/24/2022 12:18 01/24/2022 AM EDT 12:25 AM EDT Resulting Agency Comment Spec In Lab Gemma B Pentland WHITE LEAD FILTERER CHEMISTRY ORDERABLES Performing Organization Address City/[facility] Code [place] [address] (ABNORMAL) CK (01/24/2022 12:18 AM EDT) P athologist Signature CK, Total 84,860 (H) 0 - 200 [facility] LABORATORY Specimen Anatomical Collection Method Collection Time Receive d Time (Source) Location / / Volume Laterality Blood 01/24/2022 12:18 01/24/2022 AM EDT 12:25 AM EDT Resulting Agency Comment Spec In Lab Gemma B Pentland WHITE LEAD FILTERER CHEMISTRY ORDERABLES Performing Organization Address City/[facility]/ZIP Code [place] [address] POCT Glucose (01/24/2022 12:17 AM EDT) P athologist Signature POC Glucose 158 65 - 199 [facility] mg/dL [facility] LABORATORY Comment: Supplemental ranges: <140 mg/dL before meals <180 mg/dL all other times of the day Specimen Anatomical Collection Method Collection Time Receive d Time (Source) Location / / Volume Laterality Blood 01/24/2022 12:17 01/24/2022 AM EDT 12:17 AM EDT Tex Robles MD POINT OF CARE TEST ORDERABLE S Performing Organization Address City/[facility]/[place] [address] (ABNORMAL) BLOOD GAS 2 ARTERIAL (01/24/2022 12:16 AM EDT) Analysis Performed At Patho logist Time Signature pH Art 7.48 (H) 7.35 - [facility] 7.45 [facility] LABORATORY pCO2 Art 30 (L) 35 - 45 [facility] mmHg [facility] LABORATORY pO2 Art 70 (L) 85 - 104 [facility] mmHg [facility] LABORATORY HCO3 Art 22.0 20.0 - [facility] 26.0 [facility] mmol/L [facility] LABORATORY BE Art -1.5 -3.0 - 3.0 [facility] mmol/L [facility] LABORATORY Hgb Blood Gas 15.9 13.7 - [facility] 16.5 g/dL [facility] LABORATORY O2HB Art 92.9 (L) 94.0 - [facility] 97.0 % [facility] LABORATORY COHB Art 0.6 % [facility] LABORATORY Comment: Nonsmokers: 0.5-1.5% COHB Smokers: Variable, but usually less than 10% Toxic: 20-30% COHB Lethal: Greater than 60% COHB METHB Art 0.4 <=1.5 % [facility] LABORATORY Na Whole Blood 133 (L) 135 - 145 mmol/L [facility] LABORATORY K Whole Blood 4.5 3.5 - 5.0 mmol/L [facility] LABORATORY Comment: Please note: Patients with WBC >100,000 may have falsely elevated Potassium levels. Contact the Clinical Chemistry L aboratory if there are any questions. ICa Whole Blood 1.11 (L) 1.15 - 1.33 mmol/L [facility] LABORATORY Comment: Note: ??Total bilirubin higher than 20 m g/dL may lead to falsely low ionized calcium. CL Whole Blood 103 98 - 107 mmol/L [facility] LABORATORY Gluc Whole Bld 164 65 - 199 mg/dL [facility] LABORATORY Comment: Diabetes: >=200 mg/dL plus symp toms. Lactate WB 2.4 (H) 0.5 - 2.2 mmol/L [facility] LABORATORY FIO2 Art 21 % [facility] LABORATORY PF Ratio Art 333 [facility] LABORATORY Specimen Anatomical Collection Method Collection Time Receive d Time (Source) Location / / Volume Laterality Blood 01/24/2022 12:16 01/24/2022 AM EDT 12:16 AM EDT Tex Robles MD CHEMISTRY ORDERABLES Performing Organization Address City/[facility]/ZIP Code [place] [address] POCT Glucose (01/23/2022 8:20 PM EDT) P athologist Signature POC Glucose 93 65 - 199 [facility] mg/dL [facility] LABORATORY Comment: Supplemental ranges: <140 mg/dL before meals <180 mg/dL all other times of the day Specimen Anatomical Collection Method Collection Time Receive d Time (Source) Location / / Volume Laterality Blood 01/23/2022 8:20 PM 8:20 EDT PM EDT Tex Robles MD POINT OF CARE TEST ORDERABLE S Performing Organization Address City/[facility]/ZIP [place] [address] (ABNORMAL) Blood Gas Arterial ([facility]) (01/23/2022 6:10 PM EDT) Analysis Performed At Patho logist Time Signature pH Art 7.46 (H) 7.35 - [facility] 7.45 [facility] LABORATORY pCO2 Art 31 (L) 35 - 45 [facility] mmHg [facility] LABORATORY pO2 Art 79 (L) 85 - 104 [facility] mmHg [facility] LABORATORY HCO3 Art 21.5 20.0 - [facility] 26.0 [facility] mmol/L [facility] LABORATORY BE Art -2.4 -3.0 - 3.0 [facility] mmol/L [facility] LABORATORY Hgb Blood Gas 17.4 (H) 13.7 - [facility] 16.5 g/dL [facility] LABORATORY O2HB Art 95.5 94.0 - [facility] 97.0 % [facility] LABORATORY COHB Art 0.3 % [facility] LABORATORY Comment: Nonsmokers: ??0.5-1.5% COHB Smokers: ??Variable, but usually less th an 10% Toxic: 20 - 30% COHB Lethal: ??Greater than 60% COHB METHB Art 0.0 <=1.5 % [facility] LABORATORY Na Whole Blood 135 135 - 145 mmol/L [facility] LABORATORY K Whole Blood 5.0 3.5 - 5.0 mmol/L [facility] LABORATORY Comment: Please note: ??Patients with WBC >100,00 0 may have falsely elevated Potassium levels. ??Contact the Clinical Chemistry Laboratory if there are any questions. ICa Whole Blood 1.15 1.15 - 1.33 mmol/L [facility] LABORATORY Comment: Note: ??Total bilirubin higher than 20 m g/dL may lead to falsely low ionized calcium. CL Whole Blood 104 98 - 107 mmol/L [facility] LABORATORY Gluc Whole Bld 144 65 - 199 mg/dL [facility] LABORATORY Comment: Diabetes: >=200 mg/dL plus symp toms. Lactate WB 2.6 (H) 0.5 - 2.2 mmol/L [facility] LABORATORY FIO2 Art 60 % [facility] LABORATORY PF Ratio Art 132 [facility] LABORATORY Specimen Anatomical Collection Method Collection Time Receive d Time (Source) Location / / Volume Laterality Blood Arterial Draw / 01/23/2022 6:10 PM 2021 6:21 Unknown EDT PM EDT Resulting Agency Comment Spec In Lab Angelina Reynoso MD CHEMISTRY ORDERABLES Performing Organization Address City/State/[place] [address] HIV Screen, 4th Generation ([facility]/CGP/APD/NL[facility]) (01/23/2022 6:10 PM EDT) Analysis Performed At Patho logist Time Signature HIV-1/2 Ab and Negative Negative [facility] LABORATORY Comment: This 4th Generation HIV test [...] Low Risk of HIV Infection [facility] LABORATORY Specimen Anatomical Collection Method Collection Time Receive d Time (Source) Location / / Volume Laterality Blood 01/23/2022 6:10 PM 2 6:21 EDT PM EDT Resulting Agency Comment Spec In Lab Tex Robles MD IMMUNOLOGY ORDERABLES Performing Organization Address City/[facility]/ZIP [place] [address] Hepatitis A Antibody, Total (01/23/2022 6:10 PM EDT) Analysis Performed At Patho logist Time Signature Hepatitis A Ab Negative Negative [facility] LABORATORY Specimen Anatomical Collection Method Collection Time Receive d Time (Source) Location / / Volume Laterality Blood 01/23/2022 6:10 PM 2 6:21 EDT PM EDT Resulting Agency Comment Spec In Lab Tex Robles MD IMMUNOLOGY ORDERABLES Performing Organization Address City/[facility]/ZIP [place] [address] (ABNORMAL) CK (01/23/2022 6:10 PM EDT) P athologist Signature CK, Total 158,050 0 - 200 [facility] (H) unit/[facility] LABORATORY Specimen Anatomical Collection Method Collection Time Receive d Time (Source) Location / / Volume Laterality Blood 01/23/2022 6:10 PM 2 6:21 EDT PM EDT Resulting Agency Comment Spec In Lab Cristina Hillman APRN CHEMISTRY ORDERABLES Performing Organization Address City/State/ZIP [place] [address] (ABNORMAL) Electrolytes panel (01/23/2022 6:10 PM EDT) P athologist Signature Sodium 136 135 - 145 [facility] mmol/L [facility] LABORATORY Potassium 5.0 3.5 - 5.0 [facility] mmol/L [facility] LABORATORY Comment: Please note: ??Patients with WBC >100,00 0 may have falsely elevated Potassium levels. ??For accurate Potassium quantif ication in these patients send serum separator tube (gold top) for subsequent determinations. ??Contact the Clinical Chemistry Laboratory if there are any qu estions. Chloride 103 98 - 107 mmol/L [facility] CO2 20 (L) 22 - 31 mmol/L [facility] Anion Gap 13 5 - 15 mmol/L [facility] LABORATORY Specimen Anatomical Collection Method Collection Time Receive d Time (Source) Location / / Volume Laterality Blood 01/23/2022 6:10 PM 2 6:21 EDT PM EDT Resulting Agency Comment Spec In Lab Cristina Hillman APRN CHEMISTRY ORDERABLES Performing Organization Address City/[facility]/ZIP [place] [address] Phosphorus (01/23/2022 6:10 PM EDT) P athologist Signature Phosphorus 4.2 2.5 - 4.5 [facility] mg/dL [facility] LABOR[facility]ORY Specimen Anatomical Collection Method Collection Time Receive d Time (Source) Location / / Volume Laterality Blood 01/23/2022 6:10 PM 2 6:21 EDT PM EDT Resulting Agency Comment Spec In Lab Angelina Reynoso MD CHEMISTRY ORDERABLES Performing Organization Address City/[facility]/ZIP [place] [address] Magnesium (01/23/2022 6:10 PM EDT) P athologist Signature Magnesium 0.94 0.69 - 1.07 [facility] mmol/L [facility] LABORATORY Specimen Anatomical Collection Method Collection Time Receive d Time (Source) Location / / Volume Laterality Blood 01/23/2022 6:10 PM 2 6:21 EDT PM EDT Resulting Agency Comment Spec In Lab Angelina Reynoso MD CHEMISTRY ORDERABLES Performing Organization Address City/[facility]/ZIP [place] [address] (ABNORMAL) Creatinine (01/23/2022 6:10 PM EDT) Analysis Performed At Patho logist Time Signature Creatinine 2.88 (H) 0.80 - [facility] 1.50 mg/dL [facility] LABORATORY Estimated GFR 29 (L) >=60 [facility] mL/min/1.7 [facility] 3 m?? HOSPITAL LABORATORY Comment: This patient's [...] City/State/ZIP Code Ph[place] [address] (ABNORMAL) Troponin (01/23/2022 6:10 PM EDT) P athologist Signature Troponin-T 0.14 (H) 0.00 - [facility] 0.00 ng/mL [facility] LABORATORY Comment: The 99th percentile for Troponin T is le ss than 0.01 ng/mL, any detectable cTnT concentration using this assay should be considered elevated. According to the third universal definit ion of myocardial infarction the following criteria with a clinical prese ntation consistent with acute myocardial ischemia meets the diagnosis for a myocardial infarction (AL). Detection of a rise and/or fall of [...] additional sample may be indicated. Reference: Third Vernon Definition of Myocardial Infarction. Journal of the [place] [employer] 2012;60:1581-98 Specimen Anatomical Collection Method Collection Time Receive d Time (Source) Location / / Volume Laterality Blood 01/23/2022 6:10 PM 6:21 EDT PM EDT Resulting Agency Comment Spec In Lab Gemma B Sunfire WHITE LEAD FILTERER CHEMISTRY ORDERABLES Performing Organization Address City/State/ZIP Code Phon e Number [place] [id number]OS[address] LAB[address] XR Chest One View [...] who have questions please contact the health wound care center consultant that requested your imaging first. ? Narrative [...] ho have questions please contact the health wound care center consultant that requested your imaging first. Tex Robles MD IMG DX ORDERABLES (ABNORMAL) Calcium Ionized Whole Blood, HONORIO (01/23/2022 3:12 PM EDT) Analysis Performed At Patho logist Time Signature pH Honorio 7.42 7.32 - [facility] 7.42 [facility] LABORATORY ICa Whole 1.13 (L) 1.15 - [facility] Blood 1.33 [facility] mmol/L HOSPITAL LABORATORY Comment: Note: ??Total bilirubin [...] Organization Address City/State/ZIP [place] [address] POCT Glucose (01/23/2022 3:03 PM EDT) athologist Signature POC Glucose 145 65 - 199 [facility] mg/dL [facility] LABORATORY Comment: Supplemental ranges: <140 mg/dL before meals <180 mg/dL all other times of the day Specimen Anatomical Collection Method Collection Time Receive d Time (Source) Location / / Volume Laterality Blood 01/23/2022 3:03 PM 2 3:03 EDT PM EDT Tex Robles MD POINT OF CARE TEST ORDERABLE S Performing Organization Address City/State/ZIP [place] [address] XR Tibia Fibula Left [...] who have questions please contact the health wound care center consultant that requested your imaging first. ? Narrative [...] ho have questions please contact the health wound care center consultant that requested your imaging first. Tex Travis [...] who have questions please contact the health wound care center consultant that requested your imaging first. ? Narrative [...] ho have questions please contact the health wound care center consultant that requested your imaging first. Texbossman Robles MD IMG DX ORDERABLES MRSA PCR (01/23/2022 12:47 PM EDT) [employer] Method Time Signature MRSA Result Negative Negative [facility] MRSA Interp Negative for methicillin-resistant Staphylococcus aureus (MRSA) [facility] This test was performed using the GeneXpert?? Dx System an d the Xpert MRSA MEMORIAL Assay. The MRSA target DNA was not detec karina. The sample processing control and HOSPITAL probe check were valid. The performance of this test was determined by the [facility] LABORATORY Molecular Pathology Laboratory. It has been [...] Organization Address City/State/[place] [address] (ABNORMAL) BLOOD GAS 2 ARTERIAL (01/23/2022 11:56 AM EDT) Analysis Performed At Path logis Time Signature pH Art 7.43 7.35 - [facility] 7.45 [facility] LABOR[facility]ORY pCO2 Art 32 (L) 35 - 45 [facility] mmHg [facility] LABORATORY pO2 Art 86 85 - 104 [facility] LABORATORY HCO3 Art 20.8 20.0 - [facility] 26.0 [facility] mmol/[facility] LABORATORY BE Art -3.5 (L) -3.0 - 3.0 [facility] mmol/L [facility] LABORATORY Hgb Blood Gas 16.1 13.7 - [facility] 16.5 g/dL [facility] LABOR[facility]ORY O2HB Art 95.6 94.0 - [facility] 97.0 % [facility] LABOR[facility]ORY COHB Art 0.2 % [facility] Comment: Nonsmokers: 0.5-1.5% COHB Smokers: Variable, but usually less than 10% Toxic: 20-30% COHB Lethal: Greater than 60% COHB METHB Art 0.4 <=1.5 % [facility] Na Whole Blood 137 135 - 145 mmol/L [facility] K Whole Blood 5.5 (H) 3.5 - 5.0 mmol/L [facility] LABOR[facility] Comment: Please note: Patients with WBC >100,000 may have falsely elevated Potassium levels. Contact the Clinical Chemistry L aboratory if there are any questions. ICa Whole Blood 1.04 (L) 1.15 - 1.33 mmol/L [facility] Comment: Note: ??Total bilirubin higher than 20 m g/dL may lead to falsely low ionized calcium. CL Whole Blood 104 98 - 107 mmol/L [facility] Gluc Whole Bld 144 65 - 199 mg/dL [facility] Comment: Diabetes: >=200 mg/dL plus symp toms. Lactate WB 2.7 (H) 0.5 - 2.2 mmol/L [facility] FIO2 Art 60 % [facility] PF Ratio Art 143 [facility] LABORATORY Specimen Anatomical Collection Method Collection Time Receive d Time (Source) Location / / Volume Laterality Blood 01/23/2022 11:56 01/23/2022 AM EDT 11:56 AM EDT Tex Robles MD CHEMISTRY ORDERABLES Performing Organization Address City/[facility]/ZIP Code Phon e Number [address] Hepatitis B Surface Antigen (01/23/2022 11:50 AM EDT) Analysis Performed At Patho logist Time Signature HepB Surface Negative Negative [facility] LABORATORY Specimen Anatomical Collection Method Collection Time Receive d Time (Source) Location / / Volume Laterality Blood 01/23/2022 11:50 01/23/2022 AM EDT 12:00 PM EDT Resulting Agency Comment Spec In Lab Agnieszka López APRN CHEMISTRY ORDERABLES Performing Organization Address City/[facility]/ZIP Code Phon e Number [address] Hepatitis B DNA, quantitative, PCR (01/23/2022 11:50 AM EDT) Component Value Ref Test Analysis Performed At Patholo gist Range Method Time Signature Hepatitis B Result: <10 IU/mL (Target Not Detected) MANDO RAMESH quantitative, Indication for Study: HBV Infection [facility] Analysis: Mullins Elvinsarwatty m HBV assay is an in vi tro polymerase chain reaction LABORATORY (PCR) assay for the quantification of Hepatitis B Virus (HBV ) DNA in human plasma (EDTA) from chronically HBV-infected individuals. Sample: plasma Method: Mullins RealTime HBV Assay Linear Range: 10 IU/mL ? 1,000,000,000 IU/mL Note: The [employer] Alinity m HBV Assay has been approved by the U.S. Food and Drug Administration. Specimen Anatomical Collection Method Collection Time Receive d Time (Source) Location / / Volume Laterality Blood 01/23/2022 11:50 01/25/2022 8:53 AM EDT AM EDT Resulting Agency Comment Spec In Lab Agnieszka López KATERYNA CHEMISTRY ORDERABLES Performing Organization Address City/[facility]/ZIP Code [place] [address] Hepatitis B Core Antibody, Total (01/23/2022 11:50 AM EDT) [facility] Signature Hep B Core Ab Negative Negative [facility]ORY Specimen Anatomical Collection Method Collection Time Receive d Time (Source) Location / / Volume Laterality Blood 01/23/2022 11:50 01/23/2022 AM EDT 12:00 PM EDT Resulting Agency Comment Spec In Lab Agnieszka López WHITE LEAD FILTERER CHEMISTRY ORDERABLES Performing Organization Address City/State/ZIP [place] [address] (ABNORMAL) Lower Respiratory Culture Tracheal Aspirate (01/23/2022 11:50 AM EDT) Component Value Ref Test Analysis [facility]formed [facility] gist Range Method Time Signature Lower Many Staphylococcus aureus MAR Y Respiratory Few mixed bacterial morphoty pes suggestive of normal upper respiratory yessy [facility]OLCOTT Culture ([facility] LABORATORY Gram Stain Many Neutrophils [facility] No squamous epithelial cells [facility] Moderate Gram Positive Cocci [facility] LABORATORY Organism Staphylococcus J[facility] aureus (A) [facility] LABORATORY Specimen Anatomical Collection Method [...] Comment: Gentamicin is not a ppropriate for [place]-therapy. Staphylococcus aureus Oxacillin VITEK 2 METHOD Sensitive [...] - GENERAL ORDER JT Performing Organization Address City/[facility]/ZIP Code Phon e Number [address] (ABNORMAL) Creatinine (01/23/2022 11:30 AM EDT) Analysis Performed At Patho logist Time Signature Creatinine 3.56 (H) 0.80 - [facility] 1.50 mg/dL [facility] LABORATORY Estimated GFR 23 (L) >=60 [facility] mL/min/1.7 [facility] 3 ? HOSPITAL LABORATORY Comment: This patient's estimated GFR [...] Reynoso MD CHEMISTRY ORDERABLES Performing Organization Address City/[facility]/ZIP Code [place] [address] (ABNORMAL) Phosphorus (01/23/2022 11:30 AM EDT) P athologist Signature Phosphorus 6.8 (H) 2.5 - 4.5 [facility] mg/dL [facility] LABORATORY Specimen Anatomical Collection Method Collection Time Receive d Time (Source) Location / / Volume Laterality Blood 01/23/2022 11:30 01/23/2022 AM EDT 11:40 AM EDT Resulting Agency Comment Spec In Lab Angelina Reynoso MD CHEMISTRY ORDERABLES Performing Organization Address City/[facility]/ZIP Code Phon e Number [address] Magnesium (01/23/2022 11:30 AM EDT) P athologist Signature Magnesium 0.86 0.69 - 1.07 [facility] mmol/L [facility] LABORATORY Specimen Anatomical Collection Method Collection Time Receive d Time (Source) Location / / Volume Laterality Blood 01/23/2022 11:30 01/23/2022 AM EDT 11:40 AM EDT Resulting Agency Comment Spec In Lab Angelina Reynoso MD CHEMISTRY ORDERABLES Performing Organization Address [facility]/ZIP Code [place] [address] (ABNORMAL) Electrolytes panel (01/23/2022 11:30 AM EDT) P athologist Signature Sodium 142 135 - 145 [facility] mmol/L [facility] LABORATORY Potassium 5.6 (H) 3.5 - 5.0 [facility] mmol/L [facility] LABORATORY Comment: Please note: ??Patients with WBC >100,00 0 may have falsely elevated Potassium levels. ??For accurate Potassium quantif ication in these patients send serum separator tube (gold top) for subsequent determinations. ??Contact the Clinical Chemistry Laboratory if there are any qu estions. Chloride 107 98 - 107 mmol/L [facility] CO2 19 (L) 22 - 31 mmol/L [facility] Anion Gap 16 (H) 5 - 15 mmol/L [facility] LABORATORY Specimen Anatomical Collection Method Collection Time Receive d Time (Source) Location / / Volume Laterality Blood 01/23/2022 11:30 01/23/2022 AM EDT 11:35 AM EDT Resulting Agency Comment Spec In Lab Gemma B Pentland WHITE LEAD FILTERER CHEMISTRY ORDERABLES Performing Organization Address City/State/[place] [address] (ABNORMAL) CK (01/23/2022 11:30 AM EDT) athologist [facility] CK, Total 146,810 0 - 200 [facility] VELASQUEZMANDO (H) unit/L [facility] LABORATORY Specimen Anatomical Collection Method Collection Time Receive d Time (Source) Location / / Volume Laterality Blood 01/23/2022 11:30 01/23/2022 AM EDT 11:35 AM EDT Resulting Agency Comment Spec In Lab Gemma B Pentland WHITE LEAD FILTERER CHEMISTRY ORDERABLES Performing Organization Address City/State/[place] [address] (ABNORMAL) Troponin (01/23/2022 11:30 AM EDT) athologist [facility] Troponin-T 0.24 (H) 0.00 - [facility] 0.00 ng/mL [facility] LABOR[facility]ORY Comment: The 99th percentile for Troponin T is le ss than 0.01 ng/mL, any detectable cTnT concentration using this assay should be considered elevated. According to the third universal definit ion of myocardial infarction the following criteria with a clinical prese ntation consistent with acute myocardial ischemia meets the diagnosis for a myocardial infarction (AL). Detection of a rise and/or fall of [...] additional sample may be indicated. Reference: Third Vernon Definition of Myocardial Infarction. Journal of the [place] [employer] 2012;60:1581-98 Specimen Anatomical Collection Method Collection Time Receive d Time (Source) Location / / Volume Laterality Blood 01/23/2022 11:30 01/23/2022 AM EDT 11:35 AM EDT Resulting Agency Comment Spec In Lab Cristina Hillman APRN CHEMISTRY ORDERABLES Performing Organization Address City/State/ZIP [place] [address] POCT Glucose (01/23/2022 11:01 AM EDT) P athologist Signature POC Glucose 119 65 - 199 [facility] mg/dL [facility] LAB[facility]ORY Comment: Supplemental ranges: <140 mg/dL before meals <180 mg/dL all other times of the day Specimen Anatomical Collection Method Collection Time Receive d Time (Source) Location / / Volume Laterality Blood 01/23/2022 11:01 01/23/2022 AM EDT 11:01 AM EDT Tex Robles MD POINT OF CARE TEST ORDERABLE S Performing Organization Address City/State/ZIP [place] [address] (ABNORMAL) BLOOD GAS 2 ARTERIAL (01/23/2022 9:18 AM EDT) Analysis Performed At Patho logist Time Signature pH Art 7.40 7.35 - [facility] 7.45 [facility] LABOR[facility]ORY pCO2 Art 37 35 - 45 [facility] mmHg [facility] LAB[facility]ORY pO2 Art 61 (L) 85 - 104 [facility] mmHg [facility] LABORATORY HCO3 Art 22.3 20.0 - [facility] 26.0 [facility] mmol/L [facility] LABORATORY BE Art -2.6 -3.0 - 3.0 [facility] mmol/L [facility] LABOR[facility]ORY Hgb Blood Gas 15.3 13.7 - [facility] 16.5 g/dL [facility] LABORATORY O2HB Art 91.2 (L) 94.0 - [facility] 97.0 % [facility] LABOR[facility]ORY COHB Art 0.3 % [facility] Comment: Nonsmokers: 0.5-1.5% COHB Smokers: Variable, but usually less than 10% Toxic: 20-30% COHB Lethal: Greater than 60% COHB METHB Art 0.3 <=1.5 % [facility] Na Whole Blood 137 135 - 145 mmol/L [facility] K Whole Blood 4.5 3.5 - 5.0 mmol/L [facility] Comment: Please note: Patients with WBC >100,000 may have falsely elevated Potassium levels. Contact the Clinical Chemistry L aboratory if there are any questions. ICa Whole Blood 1.23 1.15 - 1.33 mmol/L [facility] Comment: Note: ??Total bilirubin higher than 20 m g/dL may lead to falsely low ionized calcium. CL Whole Blood 105 98 - 107 mmol/L [facility] Gluc Whole Bld 117 65 - 199 mg/dL [facility] Comment: Diabetes: >=200 mg/dL plus symp toms. Lactate WB 4.9 (Critical) 0.5 - 2.2 mmol/L [facility] Comment: Noted by chemical instrumentation officer. FIO2 Art 62 % [facility] PF Ratio Art 98 [facility] Temp Art 36.5 Celsius [facility] Specimen Anatomical Collection Method Collection Time Receive d Time (Source) Location / / Volume Laterality Blood 01/23/2022 9:18 AM 9:18 EDT AM EDT Tex Robles MD CHEMISTRY ORDERABLES Performing Organization Address City/State/[place] [address] (ABNORMAL) BLOOD GAS 2 ARTERIAL (01/23/2022 8:37 AM EDT) Analysis Performed At Patho logist Time Signature pH Art 7.40 7.35 - [facility] 7.45 [facility] LABORATORY pCO2 Art 33 (L) 35 - 45 [facility] LABORATORY pO2 Art 97 85 - 104 [facility] LABORATORY HCO3 Art 20.3 20.0 - [facility] 26.0 [facility] mmol/[facility] LABORATORY BE Art -4.4 (L) -3.0 - 3.0 [facility] mmol/L [facility]ORY Hgb Blood Gas 15.3 13.7 - [facility] 16.5 g/dL [facility]ORY O2HB Art 96.8 94.0 - [facility] 97.0 % [facility] LAB[facility]ORY COHB Art 0.4 % [facility] Comment: Nonsmokers: 0.5-1.5% COHB Smokers: Variable, but usually less than 10% Toxic: 20-30% COHB Lethal: Greater than 60% COHB METHB Art 0.3 <=1.5 % [facility] Na Whole Blood 135 135 - 145 mmol/L [facility] K Whole Blood 4.0 3.5 - 5.0 mmol/L [facility] Comment: Please note: Patients with WBC >100,000 may have falsely elevated Potassium levels. Contact the Clinical Chemistry L aboratory if there are any questions. ICa Whole Blood 1.11 (L) 1.15 - 1.33 mmol/L [facility] Comment: Note: ??Total bilirubin higher than 20 m g/dL may lead to falsely low ionized calcium. CL Whole Blood 105 98 - 107 mmol/L [facility] Gluc Whole Bld 141 65 - 199 mg/dL [facility] Comment: Diabetes: >=200 mg/dL plus symp toms. Lactate WB 5.0 (Critical) 0.5 - 2.2 mmol/L [facility] Comment: Noted by chemical instrumentation officer. Specimen Anatomical Collection Method Collection Time Receive d Time (Source) Location / / Volume Laterality Blood 01/23/2022 8:37 AM 2 8:37 EDT AM EDT Tex Robles MD CHEMISTRY ORDERABLES Performing Organization Address City/State/[place] [address] (ABNORMAL) BLOOD GAS 2 ARTERIAL (01/23/2022 7:59 AM EDT) Analysis Performed At Patho logist Time Signature pH Art 7.34 (L) 7.35 - [facility] 7.45 [facility] LABORATORY pCO2 Art 34 (L) 35 - 45 [facility] LABORATORY pO2 Art 105 (H) 85 - 104 [facility] mmHg [facility] LABORATORY HCO3 Art 18.1 (L) 20.0 - [facility] 26.0 [facility] mmol/[facility] LABORATORY BE Art -7.7 (L) -3.0 - 3.0 [facility] mmol/L [facility] LABORATORY Hgb Blood Gas 16.6 (H) 13.7 - [facility] 16.5 g/dL [facility] O2HB Art 97.0 94.0 - [facility] 97.0 % [facility] LABORATORY COHB Art 0.3 % [facility] Comment: Nonsmokers: 0.5-1.5% COHB Smokers: Variable, but usually less than 10% Toxic: 20-30% COHB Lethal: Greater than 60% COHB METHB Art 0.0 <=1.5 % [facility] Na Whole Blood 140 135 - 145 mmol/L [facility] K Whole Blood 4.5 3.5 - 5.0 mmol/L [facility] Comment: Please note: Patients with WBC >100,000 may have falsely elevated Potassium levels. Contact the Clinical Chemistry L aboratory if there are any questions. ICa Whole Blood 0.91 (Critical) 1.15 - 1.33 mmol/L [facility] Comment: Noted by chemical instrumentation officer. Note: ??Total bilirubin higher than 20 m g/dL may lead to falsely low ionized calcium. CL Whole Blood 103 98 - 107 mmol/L [facility] Gluc Whole Bld 179 65 - 199 mg/dL [facility] Comment: Diabetes: >=200 mg/dL plus symp toms. Lactate WB 4.4 (Critical) 0.5 - 2.2 mmol/L [facility] Comment: Noted by chemical instrumentation officer. Specimen Anatomical Collection Method Collection Time Receive d Time (Source) Location / / Volume Laterality Blood 01/23/2022 7:59 AM 7:59 EDT AM EDT Tex Robles MD CHEMISTRY ORDERABLES Performing Organization Address City/State/[place] [address] (ABNORMAL) POCT Glucose (01/23/2022 7:28 AM EDT) P athologist Signature POC Glucose 215 (H) 65 - 199 [facility] mg/dL [facility] Comment: Supplemental ranges: <140 mg/dL before meals <180 mg/dL all other times of the day Specimen Anatomical Collection Method Collection Time Receive d Time (Source) Location / / Volume Laterality Blood 01/23/2022 7:28 AM 7:28 EDT AM EDT Tex Robles MD POINT OF CARE TEST ORDERABLE S Performing Organization Address City/State/[place] [address] (ABNORMAL) Blood Gas Arterial (NLH) (01/23/2022 7:21 AM EDT) Analysis Performed At Patho logist Time Signature pH Art 7.37 7.35 - [facility] 7.45 [facility] LABORATORY pCO2 Art 28 (L) 35 - 45 [facility] LABORATORY pO2 Art 96 85 - 104 [facility] LABORATORY HCO3 Art 15.7 (L) 20.0 - [facility] 26.0 [facility] mmol/[facility] LABORATORY BE Art -9.6 (L) -3.0 - 3.0 [facility] mmol/L [facility] LABORATORY Hgb Blood Gas 16.4 13.7 - [facility] 16.5 g/dL [facility] LABORATORY O2HB Art 96.6 94.0 - [facility] 97.0 % [facility] LABORATORY COHB Art 0.3 % [facility] LABORATORY Comment: Nonsmokers: ??0.5-1.5% COHB Smokers: ??Variable, but usually less th an 10% Toxic: 20 - 30% COHB Lethal: ??Greater than 60% COHB METHB Art 0.2 <=1.5 % [facility] LABORATORY Na Whole Blood 137 135 - 145 mmol/L [facility]OR[facility] K Whole Blood 4.4 3.5 - 5.0 mmol/L [facility] Comment: Please note: ??Patients with WBC >100,00 0 may have falsely elevated Potassium levels. ??Contact the Clinical Chemistry Laboratory if there are any questions. ICa Whole Blood 0.90 (Critical) 1.15 - 1.33 mmol/L [facility]ORY Comment: Called by: sharmin, Read back by: willie webb, Date/Time:01/23/22 07:38. Note: ??Total bilirubin higher than 20 m g/dL may lead to falsely low ionized calcium. CL Whole Blood 105 98 - 107 mmol/L [facility] LABORATORY Gluc Whole Bld 203 (H) 65 - 199 mg/dL [facility] Comment: Diabetes: >=200 mg/dL plus symp toms. Lactate WB 5.5 (Critical) 0.5 - 2.2 mmol/L [facility] LABOR[facility]ORY Comment: Called by: sharmin, Read back by: pramod alfaro, Date/Time:01/23/22 07:38. FIO2 Art 30 % [facility]OR[facility] PF Ratio Art 320 [facility] LABORATORY Specimen Anatomical Collection Method Collection Time Receive d Time (Source) Location / / Volume Laterality Blood Arterial Draw / 01/23/2022 7:21 AM 2021 7:28 Unknown EDT AM EDT Resulting Agency Comment Spec In Lab Cristina Hillman APRN CHEMISTRY ORDERABLES Performing Organization Address City/State/ZIP [place] [address] (ABNORMAL) Phosphorus (01/23/2022 7:20 AM EDT) P athologist Signature Phosphorus 6.1 (H) 2.5 - 4.5 [facility] mg/dL [facility] LABORATORY Specimen Anatomical Collection Method Collection Time Receive d Time (Source) Location / / Volume Laterality Blood 01/23/2022 7:20 AM 7:27 EDT AM EDT Resulting Agency Comment Spec In Lab Angelina Reynoso MD CHEMISTRY ORDERABLES Performing Organization Address City/State/ZIP [place] [address] Magnesium (01/23/2022 7:20 AM EDT) P athologist Signature Magnesium 0.81 0.69 - 1.07 [facility] mmol/L [facility] LABORATORY Specimen Anatomical Collection Method Collection Time Receive d Time (Source) Location / / Volume Laterality Blood 01/23/2022 7:20 AM 2 7:27 EDT AM EDT Resulting Agency Comment Spec In Lab Angelina Reynoso MD CHEMISTRY ORDERABLES Performing Organization Address City/State/ZIP Code Phon e Number [address] (ABNORMAL) Creatinine (01/23/2022 7:20 AM EDT) Analysis Performed At Patho logist Time Signature Creatinine 3.84 (H) 0.80 - [facility] 1.50 mg/dL [facility] LABORATORY Estimated GFR 21 (L) >=60 [facility] [place] mL/min/1.7 [facility] 3 ?? [facility] LABORATORY Comment: [...] Organization Address City/State/ZIP Code Phon e Number [address] (ABNORMAL) Electrolytes panel (01/23/2022 7:20 AM EDT) P athologist Signature Sodium 141 135 - 145 [facility] [place] mmol/L [facility] LABORATORY Potassium 4.6 3.5 - 5.0 [facility] mmol/L [facility] LAB[facility]ORY Comment: result rechecked-brian Please note: ??Patients with WBC >100,00 0 may have falsely elevated Potassium levels. ??For accurate Potassium quantif ication in these patients send serum separator tube (gold top) for subsequent determinations. ??Contact the Clinical Chemistry Laboratory if there are any qu estions. Chloride 106 98 - 107 mmol/L [facility] CO2 14 (L) 22 - 31 mmol/L [facility] Anion Gap 21 (H) 5 - 15 mmol/L [facility] LABORATORY Specimen Anatomical Collection Method Collection Time Receive d Time (Source) Location / / Volume Laterality Blood 01/23/2022 7:20 AM 7:27 EDT AM EDT Resulting Agency Comment Spec In Lab Angelina Reynoso MD CHEMISTRY ORDERABLES Performing Organization Address City/State/[place] [address] XR Hand Min 3 [...] who have questions please contact the health wound care center consultant that requested your imaging first. ? Procedure [...] ho have questions please contact the health wound care center consultant that requested your imaging first. Tex Travis [...] who have questions please contact the health wound care center consultant that requested your imaging first. ? Narrative [...] iaphragm, the tip is not within the [id number]. Upper retrocardiac opacity corresponding to partial collapse [...] iaphragm, the tip is not within the [id number]-pf-fudc. Upper retrocardiac opacity corresponding to partial collapse [...] ho have questions please contact the health wound care center consultant that requested your imaging first. Tex Travis [...] who have questions please contact the health wound care center consultant that requested your imaging first. ? Narrative [...] ho have questions please contact the health wound care center consultant that requested your imaging first. Tex Robles [...] Patient location at time of insertion: [address] Procedure Comments: Prior to dilation wire was visualized vi a ultrasound entering large, collapsible vessel in both transv erse and longitudinal planes. All ports had positive blood ret urn and were able to be flushed without difficulty. Cristina Hillman APRN Cristina Hillman APRN PROCEDURE/MINOR SURGICAL ORD ERABLES (ABNORMAL) Electrolytes panel (01/23/2022 6:00 AM EDT) athologist Signature Sodium 140 135 - 145 [facility] mmol/L [facility] LABORATORY Potassium 5.9 (H) 3.5 - 5.0 [facility] mmol/L [facility] LAB[facility]ATORY Comment: Please note: ??Patients with WBC >100,00 0 may have falsely elevated Potassium levels. ??For accurate Potassium quantif ication in these patients send serum separator tube (gold top) for subsequent determinations. ??Contact the Clinical Chemistry Laboratory if there are any qu estions. Chloride 102 98 - 107 mmol/L [facility] CO2 15 (L) 22 - 31 mmol/L [facility] Anion Gap 23 (H) 5 - 15 mmol/L [facility] LABORATORY Specimen Anatomical Collection Method Collection Time Receive d Time (Source) Location / / Volume Laterality Blood 01/23/2022 6:00 AM 2 6:08 EDT AM EDT Resulting Agency Comment Spec In Lab Cristina Hillman APRN CHEMISTRY ORDERABLES Performing Organization Address City/State/[place] [address] (ABNORMAL) CK (01/23/2022 6:00 AM EDT) athologist Signature CK, Total 158,930 0 - 200 [facility] (H) unit/L [facility] LABORATORY Specimen Anatomical Collection Method Collection Time Receive d Time (Source) Location / / Volume Laterality Blood 01/23/2022 6:00 AM 2 6:08 EDT AM EDT Resulting Agency Comment Spec In Lab Gemma B Pentland WHITE LEAD FILTERER CHEMISTRY ORDERABLES Performing Organization Address City/State/ZIP [place] [address] (ABNORMAL) Troponin (01/23/2022 6:00 AM EDT) P athologist Signature Troponin-T 0.35 (H) 0.00 - [facility] [place] 0.00 ng/mL [facility]ORY Comment: The 99th percentile for Troponin T is le ss than 0.01 ng/mL, any detectable cTnT concentration using this assay should be considered elevated. According to the third universal definit ion of myocardial infarction the following criteria with a clinical prese ntation consistent with acute myocardial ischemia meets the diagnosis for a myocardial infarction (AL). Detection of a rise and/or fall of [...] additional sample may be indicated. Reference: Third [place] Definition of Myocardial Infarction. Journal of the [place] [employer] 2012;60:1581-98 Specimen Anatomical Collection Method Collection Time Receive d Time (Source) Location / / Volume Laterality Blood 01/23/2022 6:00 AM 2 6:08 EDT AM EDT Resulting Agency Comment Spec In Lab Gemma B Pentland WHITE LEAD FILTERER CHEMISTRY ORDERABLES Performing Organization Address City/State/ZIP [place] [address] Blood culture (01/23/2022 6:00 AM EDT) Patholo gist Method Time Signature Blood Culture No growth [facility] at 5 days. [facility] LABORATORY Specimen Anatomical Collection Method Collection Time Receive d Time (Source) Location / / Volume Laterality Blood 01/23/2022 6:00 AM 2 6:18 EDT AM EDT Comment: unknown Resulting Agency Comment Spec In Lab Gemma B Pentland WHITE LEAD FILTERER MICROBIOLOGY - BLOOD ORDERAB LES Performing Organization Address City/State/ZIP [place] [address] (ABNORMAL) POCT Glucose (01/23/2022 4:58 AM EDT) athologist Signature POC Glucose 205 (H) 65 - 199 [facility] mg/dL [facility] LABORATORY Comment: Supplemental ranges: <140 mg/dL before meals <180 mg/dL all other times of the day Specimen Anatomical Collection Method Collection Time Receive d Time (Source) Location / / Volume Laterality Blood 01/23/2022 4:58 AM 2 4:58 EDT AM EDT Tex Robles MD POINT OF CARE TEST ORDERABLE S Performing Organization Address City/[facility]/ZIP [place] [address] Hepatitis B Surface Antibody (01/23/2022 4:49 AM EDT) P athologist Signature HepB Surface 418.0 IU/L [facility] Ab Quant [facility] LABOR[facility]ORY Comment: HepB Surface Ab Quant: Unvaccinated: < 8.5 IU/L Vaccinated: > 11.5 IU/L HepB Surface Ab Positive [facility] Comment: Patient is considered to be immune to HB V infection. Expected Results: Vaccinated: Positive Unvaccinated: Negative Specimen Anatomical Collection Method Collection Time Receive d Time (Source) Location / / Volume Laterality Blood 01/23/2022 4:49 AM 2 4:56 EDT AM EDT Resulting Agency Comment Spec In Lab Gemma B Pentland WHITE LEAD FILTERER IMMUNOLOGY ORDERABLES Performing Organization Address City/State/ZIP Code Phon e Number [place] [id number] [address] Hepatitis C Antibody (01/23/2022 4:49 AM EDT) Analysis Performed At Patho logist Time Signature Hepatitis C Ab Negative Negative [facility] LABORATORY Specimen Anatomical Collection Method Collection Time Receive d Time (Source) Location / / Volume Laterality Blood 01/23/2022 4:49 AM 2 4:56 EDT AM EDT Resulting Agency Comment Spec In Lab Gemma B Pentland WHITE LEAD FILTERER IMMUNOLOGY ORDERABLES Performing Organization Address City/[facility]/ZIP Code Phon e Number [place] [phone] (ABNORMAL) Potassium (01/23/2022 4:49 AM EDT) P athologist Signature Potassium 6.6 3.5 - 5.0 [facility] (Critical) mmol/L [facility] LAB[facility]ORY Comment: Called by: , Read back by: jean carlos freeman, Date/Time:01/23/22 [...] Comment Spec In Lab Gemma B Pentland WHITE LEAD FILTERER CHEMISTRY ORDERABLES Performing Organization Address City/[facility]/[place] [address] (ABNORMAL) Hemogram (01/23/2022 4:49 AM EDT) Patholo gist Method Time Signature WBC 12.1 (H) 4.0 - 9.5 [facility] x10(3)/[facility] LABORATORY RBC 5.49 4.58 [facility] x10(6)/[facility] LABORATORY Hemoglobin 17.6 (H) 13.7 - [facility] [place] 16.5 g/dL [facility] LABORATORY Hematocrit 50.3 (H) 40.5 - [facility] [place] 48.5 % [facility] LABORATORY MCV 91.6 82.9 - [facility] [place] 93.1 [facility] LABORATORY MCH 32.1 27.5 - [facility] [place] 32.1 pg [facility] LABORATORY MCHC 35.0 32.0 - [facility] [place] 35.7 g/dL [facility] LABORATORY Platelets 184 145 - 357 [facility] [place] x10(3)/[facility] LABORATORY RDWSD 41.9 36.0 - [facility] [place] 45.0 [facility] LABORATORY RDWCV 12.3 11.4 - [facility] [place] 13.8 % [facility] LABORATORY MPV 9.7 7.6 - 12.9 [facility] [place] [facility] LABORATORY nRBC % Auto 0.2 % [facility] LABORATORY nRBC Abs Auto 0.030 (H) 0.000 - [facility] 0.000 [facility] x10(3)/[facility] LABORATORY Specimen Anatomical Collection Method Collection Time Receive d Time (Source) Location / / Volume Laterality Blood 01/23/2022 4:49 AM 4:56 EDT AM EDT Resulting Agency Comment Spec In Lab Cristina Hillman APRN HEMATOLOGY ORDERABLES Performing Organization Address City/State/[place] [address] Upper Extremity w [...] who have questions please contact the health wound care center consultant that requested your imaging first. ? Narrative [...] ho have questions please contact the health wound care center consultant that requested your imaging first. Cristina Hillman [...] who have questions please contact the health wound care center consultant that requested your imaging first. ? Narrative 01/23/2022 4:39 AM EDT EXAMINATION: CT CHEST WO CONTRAST (GENERIC) CLINICAL HISTORY: Aspiration Hypoxia [id number] to XR imaging. Presenting with cardiac arrest s/p ROSC, unclear etiology. TECHNIQUE: Noncontrast CT chest. Absence of intravenous contrast renders suboptimal assessment of potential paren chymal and mediastinal masses as well as hilar lymphadenopathy, and blood vessels and cardiovascular structures. COMPARISON: None Procedure Note Rex Addison MD - 01/23/2022 EXAMINATION: CT CHEST WO CONTRAST (GENER IC) CLINICAL HISTORY: Aspiration Hypoxia [id number] to XR imaging. Presenting with cardiac arrest [...] ho have questions please contact the health wound care center consultant that requested your imaging first. [facility] Lower Extremity [...] who have questions please contact the health wound care center consultant that requested your imaging first. ? Narrative [...] TECHNIQUE: CT scan of LEFT femur,. Sagit gl and coronal reformations were created. COMPARISON: none [...] ho have questions please contact the health wound care center consultant that requested your imaging first. Gemma B Rafy WHITE LEAD FILTERER IMG CT ORDERABLES CT Head wo Contrast [...] who have questions please contact the health wound care center consultant that requested your imaging first. ? Narrative [...] ho have questions please contact the health wound care center consultant that requested your imaging first. Cristina Hillman [...] p lanned procedure. ?? Hand Hygiene: The division operations specialist did perform h and hygiene prior [...] wave form. Procedure Comments: N/A Cristina Hillman WHITE LEAD FILTERER PROCEDURE/MINOR SURGICAL ORD ERABLES XR Abdomen 1 [...] who have questions please contact the health wound care center consultant that requested your imaging first. ? Narrative [...] ho have questions please contact the health wound care center consultant that requested your imaging first. Gemma B Pentland WHITE LEAD FILTERER IMG DX ORDERABLES XR Chest One View [...] who have questions please contact the health wound care center consultant that requested your imaging first. ? Narrative [...] body and tip not included in the [id number]-gd-ykz w. No focal consolidation.No sizable pleura l [...] body and tip not included in the ncffx-wt-egy w. No focal consolidation.No sizable pleura l [...] ho have questions please contact the health wound care center consultant that requested your imaging first. Cristina B Pentcaitlin WHITE LEAD FILTERER IMG DX ORDERABLES APTT (01/23/2022 1:55 AM EDT) P athologist Signature PTT 25 25 - 37 sec [facility] LABORATORY Comment: The PTT is [...] Robles MD HEMATOLOGY ORDERABLES Performing Organization Address City/[facility]/ZIP [place] [address] (ABNORMAL) Prothrombin Time (01/23/2022 1:55 AM EDT) P athologist Signature PT 14.4 (H) 9.4 - 12.5 [facility] LABORATORY INR 1.3 [facility] LABORATORY Comment: An INR <2.0 [...] Robles MD HEMATOLOGY ORDERABLES Performing Organization Address City/[facility]/[place] [address] Fibrinogen (01/23/2022 1:55 AM EDT) P athologist Signature Fibrinogen 349 200 - 393 [facility] mg/dL [facility] LAB[facility]ORY Comment: A fibrinogen level >100 mg/dL is adequat e for hemostasis in most patients without underlying bleeding disorders. Specimen Anatomical Collection Method Collection Time Receive d Time (Source) Location / / Volume Laterality Blood 01/23/2022 1:55 AM 2 1:59 EDT AM EDT Resulting Agency Comment Spec In Lab Tex Robles MD HEMATOLOGY ORDERABLES Performing Organization Address City/[facility]/ZIP Code [place] [address] (ABNORMAL) Rapid Drug Screen w/o Confirmation, Urine (01/23/2022 1:45 AM EDT) [employer] Method Time Signature U Barbiturates Presumptive None [facility] Screen Pos (A) Detected [facility] LABORATORY Comment: The barbiturate screen [...] Benzodiazepines Screen Presumptive Pos (A) None Detected [facility]ORY Comment: The benzodiazepines screen [...] U Cocaine Screen None Detected None Detected [facility] Comment: The cocaine metabolites [...] U Opiate Screen None Detected None Detected [facility] LABORATORY Comment: The opiates screen detects opiates at co ncentrations >300 ng/mL. Please note that oxycodone, oxymorphone, fentanyl, tramadol, and other synthetic opioids are not detected by [facility] opiate screen. A ? Presumptive Positive? result indicates that the screening result was positive but has not yet been confirmed by a highly-specific method. As with any screen, occasional false positive re sults from cross-reacting substances may occur. Not for Medico-Legal Purposes. U Cannabinoid Screen None Detected None Detected Ren WEBB [facility]ORATORY Comment: The marijuana metabolites screen detects the THC metabolite (93-jnf-7-carboxy-delta 9-THC) at concen trations >20 ng/mL. A ? Presumptive Positive? result indicates that the screening result was positive but has not yet been confirmed by a highly-specific method. As with any screen, occasional false positive re sults from cross-reacting substances may occur. Not for Medico-Legal Purposes. U Oxycodone Screen Presumptive Pos (A) None Detected [facility] Comment: The oxycodone screen detects oxycodone a nd oxymorphone at concentrations >100 ng/mL. A ? Presumptive Positive? result indicates that the screening result was positive but has not yet been confirmed by a highly-specific method. As with any screen, occasional false positive re sults from cross-reacting substances may occur. Not for Medico-Legal Purposes. U Buprenorphine Screen None Detected None Detected [facility] Comment: The buprenorphine screen detects bupreno rphine at concentrations >5 ng/mL. A ? Presumptive Positive? result indicates that the screening result was positive but has not yet been confirmed by a highly-specific method. As with any screen, occasional false positive re sults from cross-reacting substances may occur. Not for Medico-Legal Purposes. U Fentanyl Screen Presumptive Pos (A) None Detected [facility] Comment: The fentanyl screen detects fentanyl at concentrations >2 ng/mL. A ? Presumptive Positive? result indicates that the screening result was positive but has not yet been confirmed by a highly-specific method. As with any screen, occasional false positive re sults from cross-reacting substances may occur. Not for Medico-Legal Purposes. U Tricyclics Screen None Detected None Detected ASHLEY CAMPO [facility] Comment: The tricyclics screen [...] U Ethanol Screen None Detected None Detected [facility] Comment: This urine ethanol assay detect s ethanol at concentrations >/= 100 mg/L. U Amphetamines Screen None Detected None Detected [facility] Comment: The amphetamine screen [...] Screen None Detected None Detected Ren WEBB [facility] Comment: No adulteration or [...] Organization Address City/State/[place] [address] Rapid Drug Screen, Urine (MEGHNA Request) (01/23/2022 1:45 AM EDT) [employer] Method Time Signature MEGHNA Conf No [facility] LABORATORY MEGHNA Requested See Comment [facility] Comment: Refer to Rapid Drug Screen w/o Confirmation, Urine for results. Specimen Anatomical Collection Method Collection Time Receive d Time (Source) Location / / Volume Laterality Urine 01/23/2022 1:45 AM 2 1:52 EDT AM EDT Resulting Agency Comment Spec In Lab Cristina Hillman WHITE LEAD FILTERER URINE ORDERABLES Performing Organization Address City/State/[place] [address] (ABNORMAL) _Urinalysis with microscopic (01/23/2022 1:30 AM EDT) [employer] Method Time Signature Glucose UA Negative Negative [facility] mg/dL [facility] Protein UA >=300 (A) Negative [facility] Bilirubin UA Moderate (A) Negative [facility] mg/dL [facility] Comment: Clinical correlation required for positi ve Urine Bilirubin results as false positive may occur with some drugs and d rug related products. If a false positive is suspected a serum total bili villaseñor should be considered if clinically indicated. Urobilinogen UA Normal Normal mg/dL [facility] pH UA 6.5 5.0 - 8.0 [facility] Blood UA Large (A) Negative mg/dL [facility] Ketones UA Trace (A) Negative mg/dL [facility] Nitrite UA Positive (A) Negative [facility] LABORATORY Leukocytes UA Negative Negative [facility] LABORATORY Appearance UA Cloudy (A) Clear [facility] Spec Nora UA >=1.030 (A) 1.006 - 1.030 [facility] Color UA Brown (A) [facility] RBC UA 2 0 - 3 /HPF [facility] LABOR[facility] Comment: Interpret with caution, manual microscopic results are from an unspun specimen. WBC UA <1 0 - 3 /HPF [facility] LABOR[facility]ORY Comment: Interpret with caution, manual microscopic results are from an unspun specimen. Bacteria UA Many (A) None /HPF [facility] Comment: Interpret with caution, manual microscopic results are from an unspun specimen. Squam Epith UA 1 <=4 /HPF [facility] Comment: Interpret with caution, manual microscopic results are from an unspun specimen. Hyaline Cast UA <1 0 - 2 /LPF [facility] K [facility] Comment: Interpret with caution, manual microscopic results are from an unspun specimen. Amorph Mila UA Many (A) None /HPF [facility] Comment: Interpret with caution, manual microscopic results are from an unspun specimen. Specimen Anatomical Collection Method Collection Time Receive d Time (Source) Location / / Volume Laterality Urine 01/23/2022 1:30 AM 2 1:41 EDT AM EDT Resulting Agency Comment Spec In Lab Jaquelinma B Pentland WHITE LEAD FILTERER URINE ORDERABLES Performing Organization Address City/[facility]/ZIP [place] [address] Blood culture (01/23/2022 1:26 AM EDT) [employer] Method Time Signature Blood Culture No growth [facility] at 5 days. [facility] Specimen Anatomical Collection Method Collection Time Receive d Time (Source) Location / / Volume Laterality Blood 01/23/2022 1:26 AM 2 1:38 EDT AM EDT Comment: r wrist Resulting Agency Comment Spec In Lab Jaquelinma B Pentland WHITE LEAD FILTERER MICROBIOLOGY - BLOOD ORDERAB LES Performing Organization Address City/[facility]/ZIP [place] [address] (ABNORMAL) BLOOD GAS 2 ARTERIAL (01/23/2022 1:25 AM EDT) [facility] [employer] Method Time Signature pH Art 7.32 (L) 7.35 - [facility] 7.45 [facility] pCO2 Art 33 (L) 35 - 45 [facility] mmHg [facility] pO2 Art 68 (L) 85 - 104 [facility] mmHg [facility] HCO3 Art 16.8 (L) 20.0 - [facility] 26.0 [facility] mmol/L [facility] BE Art -9.3 (L) -3.0 - 3.0 [facility] mmol/L [facility] Hgb Blood Gas 20.4 13.7 - [facility] (Critical) 16.5 g/dL [facility] Comment: Noted by chemical instrumentation officer. O2HB Art 92.4 (L) 94.0 - 97.0 % [facility] COHB Art 0.2 % [facility] Comment: Nonsmokers: 0.5-1.5% COHB Smokers: Variable, but usually less than 10% Toxic: 20-30% COHB Lethal: Greater than 60% COHB METHB Art 0.7 <=1.5 % [facility] Na Whole Blood 141 135 - 145 mmol/L [facility] K Whole Blood 5.3 (H) 3.5 - 5.0 mmol/L [facility] Comment: Please note: Patients with WBC >100,000 may have falsely elevated Potassium levels. Contact the Clinical Chemistry L aboratory if there are any questions. ICa Whole Blood 0.97 (L) 1.15 - 1.33 mmol/L [facility] Comment: Note: ??Total bilirubin higher than 20 m g/dL may lead to falsely low ionized calcium. CL Whole Blood 106 98 - 107 mmol/L [facility] Gluc Whole Bld 158 65 - 199 mg/dL [facility] Comment: Diabetes: >=200 mg/dL plus symp toms. Lactate WB 4.1 (Critical) 0.5 - 2.2 mmol/L [facility] Comment: Noted by chemical instrumentation officer. FIO2 Art 75 % [facility] PF Ratio Art 91 [facility] Specimen Anatomical Collection Method Collection Time Receive d Time (Source) Location / / Volume Laterality Blood 01/23/2022 1:25 AM 2 1:25 EDT AM EDT Tex Robles MD CHEMISTRY ORDERABLES Performing Organization Address City/State/[place] [address] EKG 12 Lead (01/23/2022 12:46 AM EDT) Component Value Ref Range Test Analysis Performed Pathologis t Method Time At Signature Ventricular rate 147 BPM MUSE SYSTEM Atrial Rate 147 BPM MUSE SYSTEM P-R Interval 130 ms MUSE SYSTEM QRS Duration 84 ms MUSE SYSTEM Q-T Interval 268 ms MUSE SYSTEM QTC Calculated 419 ms MUSE SYSTEM (Bezet) Calculated P Warren 60 degrees MUSE SYSTEM Calculated R Warren 42 degrees MUSE SYSTEM Calculated T Warren 28 degrees MUSE SYSTEM INTERPRETATION Sinus tachycardia [...] EDT 12:39 PM EDT Gemma B Pentland WHITE LEAD FILTERER ECG ORDERABLES Performing Organization Address City/State/ZIP Code Phon e Number MUSE SYSTEM T4, free (01/23/2022 12:45 AM EDT) P athologist Signature Free T4 1.19 0.93 - 1.70 [facility] ng/dL [facility] Comment: Reference Interval (ng/dL): Females: ??First Trimester: 0.97-1.68 ??Second Trimester: 0.77-1.51 ??Third Trimester: 0.77-1.49 Specimen Anatomical Collection Method Collection Time Receive d Time (Source) Location / / Volume Laterality Blood 01/23/2022 12:45 01/23/2022 1:13 AM EDT AM EDT Resulting Agency Comment Spec In Lab Gemma B Pentland WHITE LEAD FILTERER CHEMISTRY ORDERABLES Performing Organization Address City/State/[place] [address] Triglyceride (01/23/2022 12:45 AM EDT) P athologist Signature Triglycerides 273 mg/dL [facility] Comment: Average Risk/Lower Risk: <150 mg/dL Borderline High Risk: 150-199 mg/dL High Risk: 200-499 mg/dL Very High Risk: >no=223 mg/dL Specimen Anatomical Collection Method Collection Time Receive d Time (Source) Location / / Volume Laterality Blood Venous Draw / 01/23/2022 12:45 01/23/2022 1:13 Unknown AM EDT AM EDT Resulting Agency Comment Spec In Lab Cristina Hillman APRN CHEMISTRY ORDERABLES Performing Organization Address City/[facility]/ZIP Code Phon e Number [address] Type and Screen Validity (01/23/2022 12:45 AM EDT) [employer] Method Time Signature T&S only valid [facility] at [facility] Comment: This Type and Screen result is only valid at the [facility] Specimen Anatomical Collection Method Collection Time Receive d Time (Source) Location / / Volume Laterality Blood 01/23/2022 12:45 01/23/2022 AM EDT 12:51 AM EDT Resulting Agency Comment Spec In Lab Cristina Hillman APRN BLOOD BANK ORDERABLES Performing Organization Address City/[facility]/ZIP Code Phon e Number [address] Scan, Peripheral Blood (01/23/2022 12:45 AM EDT) athologist Signature Plat Estimate Normal [facility] RBC Morphology Normal [facility] Specimen Anatomical Collection Method Collection Time Receive d Time (Source) Location / / Volume Laterality Blood 01/23/2022 12:45 01/23/2022 1:08 AM EDT AM EDT Resulting Agency Comment Spec In Lab [facility] WHITE LEAD FILTERER HEMATOLOGY ORDERABLES Performing Organization Address City/[facility]/ZIP [place] [address] (ABNORMAL) Differential, Automated (01/23/2022 12:45 AM EDT) [employer] Method Time Signature Neutrophils % 71.4 % [facility] Neutr Abs (ANC) 16.11 (H) 1.70 - [facility] 6.10 [facility] x10(3)/[facility] LABORATORY Lymphocytes % 17.4 % [facility] Lymphocytes Abs 3.9 (H) 0.9 - 3.2 [facility] x10(3)/[facility] LABORATORY Monocytes % 9.3 % [facility] Monocyte Abs 2.1 (H) 0.3 - 0.9 [facility] x10(3)/[facility] LABORATORY Eosinophils % 0.0 % [facility] Eosinophils Abs 0.0 0.0 - 0.4 [facility] x10(3)/[facility] LABORATORY Basophils % 0.5 % [facility] Basophils Abs 0.1 0.0 - 0.1 [facility] x10(3)/[facility] LABORATORY Immature Gran % 1.40 % [facility] Comment: Immature granulocytes(IG's)percentage an d absolute count will include metamyelocytes, myelocytes, and promyelo cytes. Blood smears from CBCs yielding IG's will be scanned manually for concor dance. If this scan disagrees with the automated IG or if promyelocytes are not ed, a manual differential will be performed. Gemini Gran Abs 0.31 (H) 0.00 - 0.04 x10(3)/[facility] LABORATORY Specimen Anatomical Collection Method Collection Time Receive d Time (Source) Location / / Volume Laterality Blood 01/23/2022 12:45 01/23/2022 1:08 AM EDT AM EDT Resulting Agency Comment Spec In Lab Cristina Hillman APRN HEMATOLOGY ORDERABLES Performing Organization Address City/State/ZIP [place] [address] (ABNORMAL) Hemogram (01/23/2022 12:45 AM EDT) P athologist Signature WBC 22.6 (H) 4.0 - 9.5 [facility] x10(3)/[facility] LABORATORY RBC 6.64 (H) 4.58 - [facility] 5.54 [facility] x10(6)/[facility] LABORATORY Hemoglobin 21.5 13.7 - [facility] (Critical) 16.5 g/dL [facility] Comment: Called by: HERMAN, Read back by: Halley Hoyt, Date/Time:01/23/22 01:33. Corrected from 21.5 g/dL [CRIT] on 01/23 1:33:32 EDT by Shelli Sauceda Hematocrit 63.2 (H) 40.5 - 48.5 % [facility] MCV 95.2 (H) 82.9 - 93.1 [facility] LABORATORY MCH 32.4 (H) 27.5 - 32.1 pg [facility] MCHC 34.0 32.0 - 35.7 g/dL [facility] LABORATORY Platelets 269 145 - 357 x10(3)/[facility] LABORATORY RDWSD 43.9 36.0 - 45.0 [facility] LABORATORY RDWCV 12.3 11.4 - 13.8 % [facility] LABORATORY MPV 9.7 7.6 - 12.9 [facility] LABORATORY nRBC % Auto 0.3 % [facility] LABORATORY nRBC Abs Auto 0.060 (H) 0.000 - 0.000 x10(3)/[facility] LABORATORY Specimen Anatomical Collection Method Collection Time Receive d Time (Source) Location / / Volume Laterality Blood 01/23/2022 12:45 01/23/2022 1:08 AM EDT AM EDT Resulting Agency Comment Spec In Lab Gemma B Pentland WHITE LEAD FILTERER HEMATOLOGY ORDERABLES Performing Organization Address City/[facility]/[place] [address] ABORH Recheck Status (01/23/2022 12:45 AM EDT) [facility] gist Method Time Signature ABORH Recheck Order Placed [facility] LABORATORY ABORH Type Complete [facility] LABORATORY Specimen Anatomical Collection Method Collection Time Receive d Time (Source) Location / / Volume Laterality Blood 01/23/2022 12:45 01/23/2022 AM EDT 12:51 AM EDT Resulting Agency Comment Spec In Lab Gemma B Pentland WHITE LEAD FILTERER BLOOD BANK ORDERABLES Performing Organization Address City/State/[place] [address] Antibody screen (01/23/2022 12:45 AM EDT) Patholo gist Method Time Signature Ab Screen Negative [facility] LABORATORY Expires at 01/26/2022 [facility] [id number] on: [facility]ORY Specimen Anatomical Collection Method Collection Time Receive d Time (Source) Location / / Volume Laterality Blood 01/23/2022 12:45 01/23/2022 AM EDT 12:51 AM EDT Resulting Agency Comment Spec In Lab Gemma B Pentland WHITE LEAD FILTERER BLOOD BANK ORDERABLES Performing Organization Address City/State/ZIP Code Phon e Number [address] ABO/Rh Typing (01/23/2022 12:45 AM EDT) P athologist Signature ABORh Type A Pos [facility] Specimen Anatomical Collection Method Collection Time Receive d Time (Source) Location / / Volume Laterality Blood 01/23/2022 12:45 01/23/2022 AM EDT 12:51 AM EDT Resulting Agency Comment Spec In Lab Gemma B Pentland WHITE LEAD FILTERER BLOOD BANK ORDERABLES Performing Organization Address City/State/ZIP [place] [address] (ABNORMAL) Basic Metabolic Panel (non-fasting) (01/23/2022 12:45 AM EDT) P athologist Signature Glucose Lvl 143 65 - 199 [facility] mg/dL [facility] Comment: Diabetes: >=200 mg/dL plus symp toms BUN 47 (H) 10 - 20 mg/dL [facility] Creatinine 4.42 (H) 0.80 - 1.50 mg/dL [facility] Sodium 142 135 - 145 mmol/L [facility] Potassium 7.6 (Critical) 3.5 - 5.0 mmol/L [facility] Comment: Called by: , Read back by: halley hoyt, Date/Time:01/23/22 02:03_. Please note: ??Patients with WBC >100,00 0 may have falsely elevated Potassium levels. ??For accurate Potassium quantif ication in these patients send serum separator tube (gold top) for subsequent determinations. ??Contact the Clinical Chemistry Laboratory if there are any qu estions. Chloride 102 98 - 107 mmol/L [facility] CO2 17 (L) 22 - 31 mmol/L [facility] Anion Gap 23 (H) 5 - 15 mmol/L [facility] Calcium 5.8 (Critical) 8.5 - 10.5 mg/dL [facility] Comment: Called by: kvng, Read back by: manny ruiz, Date/Time:01/23/22 02:03_. Estimated GFR 17 (L) >=60 mL/min/1.73 m?? [facility] Comment: This patient's estimated [...] Organization Address City/State/[place] [address] (ABNORMAL) Phosphorus (01/23/2022 12:45 AM EDT) P athologist Signature Phosphorus 10.0 2.5 - 4.5 [facility] (Critical) mg/dL [facility] Comment: Called by: kvng, Read back by: manny ruiz, Date/Time:01/23/22 02:03_. Specimen Anatomical Collection Method Collection Time Receive d Time (Source) Location / / Volume Laterality Blood 01/23/2022 12:45 01/23/2022 1:08 AM EDT AM EDT Resulting Agency Comment Spec In Lab Gela Novak MD CHEMISTRY ORDERABLES Performing Organization Address City/[facility]/ZIP [place] [address] (ABNORMAL) Magnesium (01/23/2022 12:45 AM EDT) athologist Signature Magnesium 1.08 (H) 0.69 - 1.07 [facility] mmol/L [facility]ORY Specimen Anatomical Collection Method Collection Time Receive d Time (Source) Location / / Volume Laterality Blood 01/23/2022 12:45 01/23/2022 1:08 AM EDT AM EDT Resulting Agency Comment Spec In Lab Gela Novak MD CHEMISTRY ORDERABLES Performing Organization Address City/[facility]/ZIP [place] [address] (ABNORMAL) TSH [place] (01/23/2022 12:45 AM EDT) athologist Signature TSH 7.69 (H) 0.27 - 4.20 [facility] mcIU/mL [facility] Comment: Reference Interval (mcIU/mL): Females: ??First Trimester: 0.23-3.88 ??Second Trimester: 0.22-3.90 ??Third Trimester: 0.44-4.66 Specimen Anatomical Collection Method Collection Time Receive d Time (Source) Location / / Volume Laterality Blood 01/23/2022 12:45 01/23/2022 1:08 AM EDT AM EDT Resulting Agency Comment Spec In Lab Cristina Hillman APRN CHEMISTRY ORDERABLES Performing Organization Address City/[facility]/ZIP Code [place] [address] (ABNORMAL) CK (01/23/2022 12:45 AM EDT) athologist Signature CK, Total >[id number] 0 - 200 [facility] (H) unit/L [facility] LAB[facility]ORY Specimen Anatomical Collection Method Collection Time Receive d Time (Source) Location / / Volume Laterality Blood 01/23/2022 12:45 01/23/2022 1:08 AM EDT AM EDT Resulting Agency Comment Spec In Lab Gemma B Pentland WHITE LEAD FILTERER CHEMISTRY ORDERABLES Performing Organization Address City/State/ZIP Code Ph[place] [address] (ABNORMAL) Troponin (01/23/2022 12:45 AM EDT) P athologist Signature Troponin-T 0.43 (H) 0.00 - [facility] 0.00 ng/mL [facility] Comment: The 99th percentile for Troponin T is le ss than 0.01 ng/mL, any detectable cTnT concentration using this assay should be considered elevated. According to the third universal definit ion of myocardial infarction the following criteria with a clinical prese ntation consistent with acute myocardial ischemia meets the diagnosis for a myocardial infarction (AL). Detection of a rise and/or fall of [...] additional sample may be indicated. Reference: Third Vernon Definition of Myocardial Infarction. Journal of the [place] [employer] 2012;60:1581-98 Specimen Anatomical Collection Method Collection Time Receive d Time (Source) Location / / Volume Laterality Blood 01/23/2022 12:45 01/23/2022 1:08 AM EDT AM EDT Resulting Agency Comment Spec In Lab Gemma B Pentland WHITE LEAD FILTERER CHEMISTRY ORDERABLES Performing Organization Address City/State/ZIP Code Phon e Number [place] [id number] [address]OS[address] LAB[address]ORY Drive (ABNORMAL) Hepatic Function Panel (01/23/2022 12:45 AM EDT) Analysis Performed At Patho logist Time Signature Total Protein 5.9 (L) 6.1 - 8.0 [facility] g/dL [facility] Albumin 3.1 (L) 3.2 - 5.2 [facility] g/dL [facility] LABOR[facility]ORY AST >700 (H) 0 - 39 [facility] unit/L [facility] LAB[facility] ALT >700 (H) 0 - 55 [facility] unit/L [facility]ORY Alk Phos 71 40 - 130 [facility] unit/L [facility]ORY Total 0.4 0.2 - 1.3 [facility] Bilirubin mg/dL [facility] LAB[facility] Bili, Direct 0.2 0.0 - 0.3 [facility] mg/dL [facility]ORY Specimen Anatomical Collection Method Collection Time Receive d Time (Source) Location / / Volume Laterality Blood 01/23/2022 12:45 01/23/2022 1:08 AM EDT AM EDT Resulting Agency Comment Spec In Lab Cristina Hillman WHITE LEAD FILTERER CHEMISTRY ORDERABLES Performing Organization Address City/State/ZIP [place] [address] Fibrinogen (01/23/2022 12:45 AM EDT) P athologist Signature Fibrinogen Disregard 200 - 393 [facility] Comment: A fibrinogen level [...] Comment Spec In Lab Jaquelinma B Pentland WHITE LEAD FILTERER HEMATOLOGY ORDERABLES Performing Organization Address City/[facility]/ZIP [place] [address] APTT (01/23/2022 12:45 AM EDT) P athologist Signature PTT Disregard 25 - 37 [facility] Comment: The PTT is [...] Agency Comment Spec In Lab [facility] WHITE LEAD FILTERER HEMATOLOGY ORDERABLES Performing Organization Address City/[facility]/ZIP [place] [address] Prothrombin Time (01/23/2022 12:45 AM EDT) P athologist Signature PT Disregard 9.4 - 12.5 [facility] Comment: Disregard results due to high hematocrit result interference Called by: antonella, Read back by: halley hoyt, Date/Time:01/23/22 01:39. Corrected from 12.7 sec [HI] on 01/23/22 1:39:53 EDT by Robson Booth INR Disregard [facility] Comment: An INR <2.0 [...] Agency Comment Spec In Lab Cristina Hillman WHITE LEAD FILTERER HEMATOLOGY ORDERABLES Performing Organization Address City/State/ZIP [place] [address] POCT Glucose (01/23/2022 12:44 AM EDT) P athologist Signature POC Glucose 146 65 - 199 [facility] mg/dL [facility] Comment: Supplemental ranges: <140 mg/dL before meals <180 mg/dL all other times of the day Specimen Anatomical Collection Method Collection Time Receive d Time (Source) Location / / Volume Laterality Blood 01/23/2022 12:44 01/23/2022 AM EDT 12:44 AM EDT Tex Robles MD POINT OF CARE TEST ORDERABLE S Performing Organization Address City/[facility]/ZIP [place] [address] MRSA PCR (01/23/2022 12:44 AM EDT) [facility] Method Time Signature MRSA Result Negative Negative [facility] MRSA Interp Negative for methicillin-resistant Staphylococcus aureus (MRSA) [facility] This test was performed using the GeneXpert?? Dx System an d the Xpert MRSA MEMORIAL Assay. The MRSA target DNA was not detec karina. The sample processing control and HOSPITAL probe check were valid. The performance of this test was determined by the [facility] LABORATORY Molecular Pathology Laboratory. It has been maximus red by the U.S. Food and Drug Administration for clinical use. Comment: [VERIFIED DATE]01.25.22 Verified By:Nora Shay (Electronic Signature) Specimen (Source) Anatomical Collection Method Collection Time Re ceived Time Location / / Volume Laterality Nasopharyngeal Swab 01/23/2022 12:44 06/2 11/2021 AM EDT 8:50 AM EDT Resulting Agency Comment Spec In Lab Cristina Hillman WHITE LEAD FILTERER MICROBIOLOGY - GENERAL ORDER JT Performing Organization Address City/State/ZIP Code [place] [address] (ABNORMAL) COVID-19 PCR (01/23/2022 12:44 AM EDT) [employer] Method Time Signature SARS-CoV-2 Detected (A) Not Detected [facility] RNA [facility] LABOR[facility]ORY Comment: This result should [...] diagnosis of COVID-19 is performed using the [employer] m OG S-CoV-2 Assay as authorized by the FDA Emergency Use Authorization (EUA). This EUA assay is intended for In-vitro Diagnostic (IVD) use with respiratory sp ecimens such as nasopharyngeal swabs collected from individuals during the ac iqugmiut phase of infection. This assay is performed based on the instructions for use provided by [employer] and additional guidance provided by CDC and FDA. Testing is performed in the Clinical Genomics and Advanced Technolog y Laboratory within the Department of Pathology and Laboratory Medicine at [facility], certified under the Clinical Laboratory Improvement [...] clinical management guidance information are available at [facility] CDC Coronavirus Disease 2019 (COVID-19) webpage under Information fo r Healthcare Professionals (https://www.cdc.gov/coronavirus/2019-nc ov/hcp/index.html) Additional information about this and ot her EUA tests can be found in provider and patient fact sheets at the following FDA website: https://www.fda.gov/medical-devices/bjlerdtfwfu-gjzfajm-3455-vvpdd-31-ikxqrtmss- zaf-rsbwltkbgeziym-qpnyxir-devices/gzcnd-hbrlhozmuog-bowj SARS-Cov-2 RNA Source Trach Asp [facility] Specimen Anatomical Collection Method Collection Time Receive d Time (Source) Location / / Volume Laterality Tracheal 01/23/2022 12:44 01/23/2022 8:48 Aspirate AM EDT AM EDT Comment: Symptoms->COVID-19 Suspected Resulting Agency Comment Spec In Lab Cristina Hillman APRN MICROBIOLOGY - GENERAL ORDER JT Performing Organization Address City/State/[place] [address] [facility] [address] documented in this encounter [...] 2-0.5 mg disintegrating tablet 1 tablet (COMPLETED) 08 (Given - Provider: Josh Peck RN) 1 [...] Corina Zabala, RN)1248 (Given - Provider: Corina Zabala, RN) 2 tablet (4 mg of opiate), [...] ÁNGEL) 0417 (Given - Provider: Jayme Keenan, RN)1238 (Given - Provider: Josh Peck RN)204 (Given - Provider: Betzaida Francois RN) 0304 (Given - Provider: Betzaida Francosi RN)1200 (Not Given - Provider: Corina Zabala, RN - Reason: Patient/family refused) 5,000 Units, [...] Carlos RN) 0851 (Given - Provider: Josh Pekc RN)2041 (Given - Provider: Betzaida Francois RN) 0823 (Given - Provider: Corina Zabala , RN) [...] 0416 (See Alternative - Provider: Jayme Keenan, RN)0827 (See Alternative - Provider: Josh Peck [...] 01/23/22 Precautions may be discontinued by the [facility] team after the required isolation period (10 or 20 days, depending on the clinical circumstances) when the patient is clinically improving and has be en afebrile for 24 hours without fever reducing medications. Estimated date patient will be eligible for precaution removal: 02/03/22 Please call [phone] with questions. Rule Out C. difficile 02/01/2022 [...] prior to 04/25/22 Please call Infection Prevention [phone] with questions. COVID-19Comment: Original COVID-19 test 01/23. Developed symptoms again 02/04/22 so extending isolation to 20 days. 02/04/2022 02/04/2022 02/09/20 1:57 PM EDT Eligible for precaution removal 02/13/22 History of COVID-19Comment: Retesting fo r COVID is not recommended unless infectious syndrome persists with no alternate explanation. 02/08/2022 02/08/2022 Positive test on 01/23/2022 Please do not retest prior to 04/25/2022 Please call Infection Prevention [phone] with questions. History of C. difficileComment: 03/19/2022 03/19/2022 Patient has met the 5 C's and is eligible to end soap and water contact precautions. Currently on PO vanc prophylacticly due to getting antibiotics for tx. documented as of this encounter Care Teams Butcher Apprentice Relationship Specialty Start Date End Date None PCP - General 03/10/19 None documented as of this encounter
--- OUTSIDE RECORDS SUMMARY | 2022-04-21 11:40 | XMS_ITS | Encounter Summary ---
:1990 Author Organization [facility] [place] [address] Care Team Providers Name Role Phone None Primary Care Provider Unavailable Reason for Visit Auth/Cert Specialty Diagnoses / Procedures Referred By Contact Refer red To Contact Diagnoses Cardiac arrest intubated med misuse/covid Ximena Robles MD [facility] Procedures ER IPI Admit [facility] Emergency Department [place] [address] Referral ID Status Reason Start Date Expiration Date Visits Requ ested Visits Authorized [id number] 1 1 Encounter Details Date Type Department Care Team Description 01/29/2022 Anesthesia Event Main Operating Room Chris Daley MD [facility] ANESTHESIOLOGY [place] [id number] [facility] ([facility] Caden Mantilla MD [facility] [place] [address] [facility] [place] [address] Anesthesia Record Procedure Summary Procedure Name Responsible Anesthesia Start Anesthesia Stop Anesthesiologist Time Time DEBRIDEMENT SKIN, Chris Hawk MD 01/29/22 1458 01/29/22 174 5 SUBCU, MUSCLE, BONE, LOWER EXTREMITY (WRVU 4.1) (Left Leg Upper) Events Date Time Event Comment 01/29/2022 1423 1458 AN Verify 1458 Start 1458 An Start Data 1503 An Induction 1505 An Intubation 1527 Anesthesia Ready 1539 Handoff Intra-procedure anesthesia care was transferred afte r review of the patient's history, current anesthetic/surgical status and procedural p yuval, anticipated issues and expected post-op erative course (including disposition.) Ann-Marie Mantilla MD 1731 Extubation/LMA Out 1736 an stop data 1736 Transport 1745 Recovery or ICU Handoff Patient care was transferred to the destination unit staff after review of the patient's medica l history, current anesthetic/surgi moe status and plan, according to the Provider Handoff Checklist. 1745 Stop Name Total Midazolam 2 mg Propofol 200 mg Rocuronium 50 mg PHENYLephrine 400 mcg Ondansetron 8 mg Dexmedetomidine 20 mcg Dexmedetomidine INF 88.5 mcg Propofol INF 781.89 mg Ketamine 10 mg/mL 50 mg HYDROmorphone 2 mg/mL 2 mg ceFAZolin 2 g Sugammadex 200 mg Lactated Ringers 500 mL Agents Name O2 Air N2O Sevoflurane (et) Blood No blood administrations on file. Lines, Drains, and Airways Type Details Placement Removal Incision 01/23/22; 0829; Left, 01/23/22 0829 by lateral; calf; vertical Emma Otero RN Incision 01/23/22; 0841; Left, 01/23/22 0841 by lateral; thigh; vertical Emma Otero, RN Incision 01/23/22; 0858; Left; arm 01/23/22 0858 by (volar surface); vertical Emma Otero RN Incision 04/27/13; jaw (inside 04/27/13 0000 by 02/09/22 1508 by mouth approach. ); Jennifer Conway RN Anthony Schumacher P, 02/09/22; 1508 RN Urethral Catheter 01/23/22; 0035; Q1-2hr 01/23/22 0035 by 1759 by UOP in ICU patient Cori Ellison, ÁNGEL Robertson, Marvin orilam H, without alternative; RN urethral catheter removed, tubing intact, other (see comments); Per MD; 02/05/22; 1759 CVC 3 Lumen 01/23/22; 0600; internal 01/23/22 0600 by 1230 by jugular vein, right; Helena Zapien, RN Perry, Natalya Machado, RN lumen/catheter not patent (new lumen was changed over a wire); cathflo instilled x2, unable to pull from venous cath; 02/07/22; 1230 Incision 01/23/22; 0931; Left 01/23/22 0931 by 03/06/22 1 543 by (dorsal surface); arm; Emma Otero RN Lim anek, Lisa R, RN vertical; 03/06/22; 1543 CVC 3 Lumen 01/23/22; 1625; internal 01/23/22 1625 by 1330 by jugular vein, left; no Tung Diehl RN Benso n, Tung Batista RN longer indicated, removed per policy/procedure, site care per policy/procedure, catheter/device intact; 02/10/22; 1330 Incision 01/26/22; 1625; Left; 01/26/22 1625 by 03/06/22 0738 by palm; dressing xerofrom, Toan Robbins RN L imaneWendy bullard, RN abd, aide 4inch aplied on 01/26 at 1730; 03/06/22; 0738 NPWT 01/26/22; 1708; Left; 01/26/22 1708 by 01/29/22 1614 by calf; 01/29/22; 1614 Toan Robbins RN Hunte r, Talib Bullard, RN NPWT 01/26/22; 1709; Left, 01/26/22 1709 by 02/04/22 1849 by anterior; thigh; Toan Robbins RN Lightfoot , Wendy M, 02/04/22; 1849 RN NPWT 01/26/22; 1712; Left, 01/26/22 1712 by 02/11/22 1021 by anterior; arm; 02/11/22; Toan Robbins RN B lexi, Gaurang Bullard, RN 1021 ETT Mask Ventilation: Not 01/29/22 1510 by 01/29/22 1731 by Attempted (0); ETT Type: Licha Esteban, CABLE RESPOOLER G Licha montana, Cuffed, Oral; ETT Size: CABLE RESPOOLER 7.5 mm; Mac Blade: 4; Notes: Asleep, Pre-O2, RSI, Cricoid Pressure; Attempts: 1; Laryngoscopy Grade: 1; ETT Placement Verified By: Auscultation, Capnometry, Visual; Secured at Teeth: 23 cm; Inserted by: Leilani ARREDONDO documented in this encounter Social History [...] encounter OR Notes Anesthesia Preprocedure Evaluation - Caden Mantilla MD - 01/29/2022 2:19 PM EDT Pre-Anesthesia Evaluation for: Eric Crookswell a 31 y.o. male. Procedure(s): DEBRIDEMENT SKIN, SUBCU, MUSCLE, BONE, LOWER EXTREMITY (WRVU 4.1) MODIFIER WOUND VAC Patient Active Problem List Diagnosis Date Noted ??? Transaminitis 01/24/2022 ??? Aspiration pneumonia 01/24/2022 ??? SHAMAR ROBB compartment syndrome s/p fasciotimies, I+D 01/23/22 Garcia 01/23/2022 ??? *Rhabdomyolysis 01/23/2022 ??? Asymptomatic COVID-19 virus infection 01/23/2022 [...] [facility] MAIN OR ??? PRO DECOMP FOREARM, 2 COMPART, W/O DEBRIDE Left 01/23/2022 FASCIOTOMY; FOREARM AND\OR WRIST, FLEXOR & EXTENS. COMP (WRVU 10.79) performed by Sigifredo Garcia MD at [facility] MAIN OR ??? PRO DECOMPRESS ANT/LAT+POST LEG CMPART Left 01/23/2022 FASCIOTOMY, LOWER LEG, ALL COMPARTMENTS (WRVU 7.82) performed by Sigifredo Garcia MD at [facility] MAIN OR ??? PRO INCIS OF HIP/THIGH FASCIA Left 01/23/2022 @FASCIOTOMY,THIGH OR HIP FOR COMPARTMENT SYNDROME (WRVU 12.89) performed by Sig[facility]redo [facility] [...] Physical Exam: Preprocedure Vitals Current as of 01/29/22 1419 BP: 156/103 Pulse: 102 Resp: 30 SpO2: 100 Temp: 37.8 ??C (100 ??F) Height: 182.9 cm (6') (01/23/22) Weight: 116.7 kg (257 lb 4.4 oz) (01/29/22) BMI: 34.89 IBW: 77.6 kg (171 lb 1.9 oz) Last edited 01/29/22 1300 by GB Currently displaying vitals information from multiple entries within 180 minutes of most recent vitals. Airway Assessment: Mallampati: (Unable to Assess) TM distance: >3 FB Neck ROM: full Cardiovascular Assessment: Rhythm: regular Rate: abnormal Pulmonary Assessment: unlabored breathing Dental Assessment: Misc Assessment: IV access: Peripheral line and Central line Last Filed Perioperative Cognitive Screening None Anesthesia Plan: ASA 3 general, with a(n) intravenous induction 31 y.o. male IVDU admitted with LUE compartment syndrome s/p fasciotomies. Presented after cardiac arrest in setting of fentanyl use, found down. Today returns to OR for debridement of LE wounds PMHx of HTN, angioedema (unknown trigger) and polysubstance use (cocaine, EtOH and heroin) Anesth Hx: Tolerated GETA on 01/23 and 01/26 for fasciotomy and wound debridement. Now extubated, [id number]% on RA. Labs: 01/29/22 01/28/22 01/27/22 0255 0018 1022 WBC 29.4* 23.9* 18.9* HGB 10.7* 11.9* 11.6* HCT 31.3* 34.7* 34.2* PLATELET 148 106* 100* 01/29/22 01/28/22 01/27/22 01/27/22 0255 0018 1205 0125 NA 130* 136 -- 135 K 4.8 4.6 -- 4.4 CL 98 102 -- 104 CO2 24 25 -- 25 BUN 34* 20 -- 21* CREATININE 3.22* 2.03* 2.06* 2.12* 06/30/22 06/29/22 06/28/22 0018 0125 0020 AST 418* 618* 710* ALT 237* 418* 591* ALKPHOS 88 82 56 BILITOT 0.4 0.9 0.4 BILIDIR 0.3 0.8* 0.2 01/23/22 01/23/22 0155 0045 PT 14.4* Disregard INR 1.3 Disregard PTT 25 Disregard Lab Results Component Value Date ABORH A Pos 01/23/2022 Pt is appropriately NPO Pt somewhat sedated, nonconversant. Consent obtained via telephone call with father. Anesthetic Plan GA with ETT Standard ASA monitors, IV access Region - Other Informed Consent: Anesthetic plan and risks discussed with patient and father. Plan discussed with CABLE RESPOOLER. Anesthesia Screening Anesthesia Postprocedure Evaluation - Chris Hawk MD - 01/28/2022 5:57 PM EDT Department of Anesthesiology Post-procedure Note Patient: Eric Packer Procedure Summary Date: 01/29/22 Room / Location: [facility] OR [facility] MAIN OR Anesthesia Start: 1458 Anesthesia Stop: 1744 Procedures: DEBRIDEMENT SKIN, SUBCU, MUSCLE, BONE, LOWER EXTREMITY (WRVU 4.1) (Left Leg Upper) MODIFIER WOUND VAC (N/A ) Diagnosis: (L forear (volar/dorsal) L thigh/buttock L leg compartment syndrome I+D) Surgeons: Tom Valdovinos MD Responsible Provider: Chris Hawk MD Anesthesia Type: general ASA Status: 3 All Anesthesia Providers: Anesthesiologist: Chris Hawk MD; Caden Mantilla MD CABLE RESPOOLER: Licha Esteban CRNA Vitals Value Taken Time BP 112/71 02/04/22 1115 Temp 36.9 ??C (98.4 ??F) 02/04/22 0815 Pulse 108 02/04/22 1126 Resp 15 02/04/22 1126 SpO2 100 % 02/04/22 1125 Pain Level 6 02/04/22 1046 Vitals shown include unvalidated device data. Patient Location: ICU Level of Consciousness: Conscious but Sleepy Pain Management: Pain Being Addressed PONV: None Cardiovascular Status: At Baseline Respiratory Status: Supplemental O2 (NC or FM) Postoperative Fluid Status: Intravascular EUvolemia Possible Anesthetic Complications: NONE apparent at time of evaluation Final Primary Anesthesia Type: General (The anesthetic type performed was the same as planned.) Comments: Chris Hawk MD documented in this encounter Plan of Treatment Upcoming Encounters Date Type Specialty Care Team Description 06/09/2022 Procedure visit Neurology Summer Wiggins [facility] [place], [place] [address] (Wo rk) Scheduled Procedures Name [...] (Ancef) 1 g in dextrose 5% Given 01/29/2022 3:27 PM ED T 2 g 50 mL infusion Intravenous, PRN, Starting on Tue01/29/22 at 1527, Until Tue01/29/22 at 1750, Administer over 30 Minutes, Anesthesia Intra-op dexmedeTOMIDine (Precedex) (4 mcg/mL) bolus Given 01/29/2022 3:03 PM EDT 20 mcg injection (Anesthsia) Intravenous, PRN, Starting on Tue01/29/22 at 1503, Until Tue01/29/22 at 1750, Anesthesia Intra-op, Routine dexmedeTOMIDine (Precedex) (4 New Bag 01/29/2022 3:03 PM 0.5 m cg/kg/hr 14.588 mL/hr mcg/mL) in sodium chloride EDT 0.9% 50 mL infusion Intravenous, CONTINUOUS PRN, Starting on Tue01/29/22 at 1503, Until Tue01/29/22 at 1750, Anesthesia Intra-op HYDROmorphone (Dilaudid) (2 mg/mL) multi-dose Given 5:12 PM EDT 0.6 mg injection solution Intravenous, PRN, Starting on Tue01/29/22 at 1522, Until Tue01/29/22 at 1750, Anesthesia Intra-op, Routine Given 01/29/2022 4:33 PM EDT 0.4 mg Given 01/29/2022 4:02 PM EDT 0.4 mg ketamine (Ketalar) (10 mg/mL) IV bolus Given 01/29/2022 4:33 PM EDT 25 mg injection (Anesthesia) Intravenous, PRN, Starting on Tue01/29/22 at 1522, Until Tue01/29/22 at 1750, Anesthesia Intra-op Given 01/29/2022 3:22 PM EDT 25 mg lactated ringers infusion New Bag 01/29/2022 2:58 PM EDT Intravenous, CONTINUOUS PRN, Starting on Tue01/29/22 at 1458, Until Tue01/29/22 at 1750, Anesthesia Intra-op midazolam (pf) (Versed) (1 mg/mL) multi-dose Given 01/29/2022 3: 03 PM EDT 2 mg injection Intravenous, PRN, Starting on Tue01/29/22 at 1503, Until Tue01/29/22 at 1750, Anesthesia Intra-op, Routine ondansetron (pf) (Zofran) (2 mg/mL) inje ction Given 01/29/2022 4:02 PM EDT 8 mg Intravenous, PRN, Starting on Tue01/29/22 at 1602, Until Tue01/29/22 at 1750, Anesthesia Intra-op, Routine PHENYLephrine in NS (PF) (JORDIN-SYNEPHRINE) 0.8 Given 4:33 PM EDT 80 mcg mg/10 mL (80 mcg/mL) multi-dose injection Syrg Intravenous, PRN, Starting on Tue01/29/22 at 1522, Until Tue01/29/22 at 1750, Anesthesia Intra-op, Routine Given 01/29/2022 4:02 PM EDT 80 mcg Given 01/29/2022 3:33 PM EDT 80 mcg propofoL (Diprivan) (10 mg/mL) New Bag 01/29/2022 3:03 PM 50 m cg/kg/min 35.01 mL/hr infusion EDT Intravenous, CONTINUOUS PRN, Starting on Tue01/29/22 at 1503, Until Tue01/29/22 at 1750, Anesthesia Intra-op, Routine propofoL (Diprivan) 10 mg/mL bolus injection Given 08/2021 3:03 PM EDT 200 mg (Anesthesia) Intravenous, PRN, Starting on Tue01/29/22 at 1503, Until Tue01/29/22 at 1750, Anesthesia Intra-op rocuronium (Zemuron) (10 mg/mL) multi-dose Given 01/29/2022 3:03 PM EDT 50 mg injection Intravenous, PRN, Starting on Tue01/29/22 at 1503, Until Tue01/29/22 at 1750, Anesthesia Intra-op, Routine sugammadex (Bridion) 100 mg/mL injection Given 01/29/2022 4:35 PM EDT 200 mg Intravenous, PRN, Starting on Tue01/29/22 at 1635, Until Tue01/29/22 at 1750, Anesthesia Intra-op, Routine documented in this encounter Additional Health Concerns Infection Onset Date Last Indicated Resolved Time COVID-19Comment: Date of symptom onset: Asymptomatic/unknown 01/23/2022 01/23/2022 02/03/2022 8:46 AM EDT Date of positive test: 01/23/22 Precautions may be discontinued by the [facility] care team after the required isolation period (10 or 20 days, depending on the clinical circumstances) when the patient is clinically improving and has be en afebrile for 24 hours without fever reducing medications. Estimated date patient will be eligible for precaution removal: 02/03/22 Please call [phone] with questions. documented as of this encounter Care Teams School Business Administrator Relationship Specialty Start Date End Date None PCP - General 03/10/19 None documented as of this encounter
--- OUTSIDE RECORDS SUMMARY | 2022-04-21 11:40 | XMS_ITS | Encounter Summary ---
:1990 Author Organization [facility] [place] [address] Care Team Providers Name Role Phone None Primary Care Provider Unavailable Reason for Visit Auth/Cert Specialty Diagnoses / Procedures Referred By Contact Refer red To Contact Diagnoses Cardiac arrest intubated med misuse/covid Ximena Robles MD [facility] Procedures ER IPI Admit [facility] [place] [address] Referral ID Status Reason Start Date Expiration Date Visits Requ ested Visits Authorized [id number] 1 1 Encounter Details Date Type Department Care Team Description 01/31/2022 Anesthesia Event Main Operating Room Kar Barrett MD [facility] [place] [address] [facility] Juan Luis Milan MD [facility] [place] [address] [facility] [place] [phone] Anesthesia Record Procedure Summary Procedure Name Responsible Anesthesia Start Anesthesia Stop Anesthesiologist Time Time DEBRIDEMENT AYSHA, Kar Goldberg MD 01/31/22 1030 01/31/22 121 9 SUBCU, MUSCLE, BONE, LOWER EXTREMITY (WRVU 4.1) (Left Leg Upper) Events Date Time Event Comment 01/31/2022 0953 1030 AN Verify 1030 Start 1030 An Start Data 1039 An Induction 1043 An Intubation 1044 Anesthesia Ready 1111 Procedure Start 1159 Extubation/LMA Out 1205 an stop data 1206 Transport 1215 Recovery or ICU Handoff Patient care was transferred to the destination unit staff after review of the patient's medica l history, current anesthetic/surgi moe status and plan, according to the Provider Handoff Checklist. 1219 Stop Name Total Propofol 200 mg Propofol INF 469.45 mg fentaNYL 100 mcg Dexamethasone 8 mg Ondansetron 8 mg PHENYLephrine 80 mcg Dexmedetomidine 20 mcg Lactated Ringers 500 mL Agents Name O2 Air N2O Sevoflurane (et) Blood No blood administrations on file. Lines, Drains, and Airways Type Details Placement Removal Incision 01/23/22; 0829; Left, 01/23/22 0829 by lateral; calf; vertical Emma Otero, RN Incision 01/23/22; 0841; Left, 01/23/22 0841 by lateral; thigh; vertical Emma Otero, RN Incision 01/23/22; 0858; Left; arm 01/23/22 0858 by (volar surface); vertical Emma Otero, RN Incision 04/27/13; jaw (inside 04/27/13 0000 by 02/09/22 1508 by mouth approach. ); Jennifer Conway, RN Anthony Schumacher P, 02/09/22; 1508 RN Urethral Catheter 01/23/22; 0035; Q1-2hr UOP 01/23/22 0035 by 1759 by in ICU patient without Cori Ellison RN [facility], alternative; urethral RN catheter removed, tubing intact, other (see comments); Kavon HARTLEY; 02/05/22; 1759 CVC 3 Lumen 01/23/22; 0600; [...] by 1330 by jugular vein, left; no Fazal, ÁNGEL Fierro nTung RN longer indicated, removed per policy/procedure, site care per policy/procedure, catheter/device intact; 02/10/22; 1330 Incision 01/26/22; 1625; Left; 01/26/22 1625 by 03/06/22 0738 by palm; dressing xerofrom, Toan Robbins RN L imWendy sanderson RN abd, aide 4inch aplied on 01/26 at 1730; 03/06/22; 0738 NPWT 01/26/22; 1709; Left, 01/26/22 1709 by 02/04/22 1849 by anterior; thigh; 02/04/22; Toan Robbins RN Rashmi, Wendy Mcclure, 1849 RN NPWT 01/26/22; 1712; Left, 01/26/22 1712 by 02/11/22 1021 by anterior; arm; 02/11/22; Toan Robbins RN B lexiGaurang RN 1021 Supraglottic Mask Ventilation: Easy 01/31/22 1043 by 01/31/22 1159 by (1); LMA Type: iGel; LMA Kitty Herrera, Size: 4; Inserted by: MD Milly Harrington i, MD Suntharalingam MD documented in this encounter Social History [...] encounter OR Notes Anesthesia Postprocedure Evaluation - Kar Goldberg MD - 01/31/2022 2:27 PM EDT Department of Anesthesiology Post-procedure Note Patient: Eric Packer Procedure Summary Date: 01/31/22 Room / Location: [facility] MAIN OR Anesthesia Start: 1030 Anesthesia Stop: 1219 Procedures: DEBRIDEMENT SKIN, SUBCU, MUSCLE, BONE, LOWER EXTREMITY (WRVU 4.1) (Left Leg Upper) MODIFIER WOUND VAC (N/A Leg) DEBRIDEMENT SKIN, SUBCU, MUSCLE, BONE UPPER EXTREMITY (WRVU 4.1) (Left Arm Lower) Diagnosis: (LUE +LLE I&D) Surgeons: Jose Branch MD Responsible Provider: Kar Goldberg MD Anesthesia Type: general ASA Status: 3 All Anesthesia Providers: Anesthesiologist: Kar Goldberg MD Sales Planning Coordinator: Len Herrera MD Vitals Value Taken Time BP 169/89 01/31/22 1415 Temp 36.8 ??C (98.2 ??F) 01/31/22 1300 Pulse 102 01/31/22 1426 Resp 23 01/31/22 1426 SpO2 100 % 01/31/22 1426 Pain Level 7 01/31/22 1427 Vitals shown include unvalidated device data. Patient [...] performed was the same as planned.) Comments: Kar Goldberg MD Anesthesia Preprocedure Evaluation - Kar Goldberg MD - 01/31/2022 7:03 AM EDT Pre-Anesthesia Evaluation for: Eric Packer a 31 y.o. male. Procedure(s): DEBRIDEMENT SKIN, SUBCU, MUSCLE, BONE, LOWER EXTREMITY (WRVU 4.1) Patient Active Problem List Diagnosis Date Noted ??? Transaminitis 01/24/2022 ??? Aspiration pneumonia 01/24/2022 ? ? *LIZESHAMAR compartment syndrome s/p fasciotimies, I+D 01/23/22, 01/26/22 (Dr. Garcia), I&D w/ partial closure 01/29/22 (Dr. Valdovinos) 01/23/2022 ??? Rhabdomyolysis 01/23/2022 ??? Asymptomatic COVID-19 [...] (WRVU 4.1) performed by Tom Valdovinos MD [facility] OR ? ? PRO DEBRIDEMENT MUSCLE AND FASCIA 20 SQ CM/< Left 01/26/2022 DEBRIDEMENT SKIN, SUBCU, MUSCLE, LOWER EXTREMITY (WRVU 2.7) performed by Sigifredo Garcia MD at [facility] MAIN OR ? ? PRO DEBRIDEMENT MUSCLE AND FASCIA 20 SQ CM/< Left 01/26/2022 DEBRIDEMENT SKIN, SUBCU, MUSCLE, UPPER EXTREMITY (WRVU 2.7) performed by Sigifredo Garcia MD at [facility] OR ??? PRO DECOMP FOREARM, 2 COMPART, W/O DEBRIDE Left 01/23/2022 FASCIOTOMY; FOREARM AND\OR WRIST, FLEXOR & EXTENS. COMP (WRVU 10.79) performed by Sigifredo Garcia MD at [facility] OR ??? PRO DECOMPRESS ANT/LAT+POST LEG CMPART Left 01/23/2022 FASCIOTOMY, LOWER LEG, ALL COMPARTMENTS (WRVU 7.82) performed by Sigifredo Garcia MD at [facility] MAIN OR ??? PRO INCIS OF HIP/THIGH FASCIA Left 01/23/2022 @FASCIOTOMY,THIGH OR HIP FOR COMPARTMENT SYNDROME (WRVU 12.89) performed by Sigifredo Garcia MD at [facility] MAIN OR ??? PRO OPEN TREAT MANDIBLE CONDYLE FX, COMPL 04/27/2013 OPEN TREATMENT, COMPLEX MANDIBLE FX., MULTI APPROACH, W/ FIXATION performed by Kishore Neil MD at [facility] MAIN OR ??? PRO REVISE MEDIAN N/CARPAL TUNNEL SURG Left 01/23/2022 MEDIAN NERVE DECOMPRESSION (CARPAL TUNNEL RELEASE) (WRVU 4.97) performed by Sigifredo Garcia MD at [facility] MAIN OR ??? PRO SEC CLSR SURG WOUND/DEHSN EXTENSIVE/COMPLICATED Left 01/26/2022 SECONDARY CLOSURE SURGICAL WOUND OR DEHISCENCE, EXTENSIVE OR COMPLICATED, UPPER EXTREMITY (WRVU 12.04) performed by Sigifredo Garcia MD at [facility] MAIN OR Social History Tobacco [...] Physical Exam: Preprocedure Vitals Current as of 01/31/22 0703 BP: 159/84 Pulse: 100 Resp: 27 SpO2: 100 Temp: 36.6 ??C (97.9 ??F) Height: 182.9 cm (6') (01/23/22) Weight: 114.5 kg (252 lb 6.8 oz) (01/31/22) BMI: 34.24 IBW: 77.6 kg (171 lb 1.9 oz) Last edited 01/31/22 0600 by Airway Assessment: Mallampati: II TM distance: >3 FB Neck ROM: full Cardiovascular Assessment: Rhythm: regular Rate: normal (-) murmur system normal Pulmonary Assessment: unlabored breathing pulmonary exam normal Dental Assessment: - normal exam Misc Assessment: Last Filed Perioperative Cognitive Screening None Anesthesia Plan: ASA 3 general, 31 y.o. male IVDU admitted with LUE compartment syndrome s/p fasciotomies 01/23/22. Presented after cardiac arrest in setting of fentanyl use, found down. Now returning for serial debridements of LLE and LUE ?? PMHx of HTN, angioedema (unknown trigger) and polysubstance use (cocaine, EtOH and heroin) ?? Anesth Hx: Tolerated GETA on 01/23 and 01/26 for fasciotomy and wound debridement. Now extubated, [id number]% on RA. 01/29/22 debridement - Mac4 G1v ?? Anesthetic Plan GA with SGA vs ETT ICU team requesting avoidance of ketamine if possible to aid mental status evauations Standard ASA monitors, IV access Informed Consent: Anesthetic plan and risks discussed with father and patient. Use of blood products discussed with patient and father who. Anesthesia Screening documented in this encounter Plan of Treatment Upcoming Encounters Date Type Specialty Care Team Description 06/09/2022 Procedure visit Neurology Summer Wiggins MD [facility] NEUROLOGY DEPT [place], [place] [address] (Wo rk) Scheduled Procedures Name [...] Dose Rate Site dexAMETHasone (Decadron) injection Given 01/31/2022 10:58 AM EDT 8 mg Intravenous, PRN, Starting on 01/31/22 at 1058, Until 01/31/22 at 1427, Anesthesia Intra-op, Routine dexmedeTOMIDine (Precedex) (4 mcg/mL) bolus Given 01/31/2022 11:54 AM EDT 4 mcg injection (Anesthsia) Intravenous, PRN, Starting on 01/31/22 at 1110, Until 01/31/22 at 1427, Anesthesia Intra-op, Routine Given 01/31/2022 11:50 AM EDT 8 mcg Given 01/31/2022 11:10 AM EDT 8 mcg fentaNYL (pf) (50 mcg/mL) multi-dose Given 01/31/2022 10:44 AM E DT 50 mcg injection Intravenous, PRN, Starting on 01/31/22 at 1031, Until 01/31/22 at 1427, Anesthesia Intra-op, Routine Given 01/31/2022 10:31 AM EDT 50 mcg lactated ringers infusion New Bag 01/31/2022 11:47 AM EDT Intravenous, CONTINUOUS PRN, Starting on 01/31/22 at 1147, Until 01/31/22 at 1427, Anesthesia Intra-op ondansetron (pf) (Zofran) (2 mg/mL) inje ction Given 01/31/2022 11:48 AM EDT 8 mg Intravenous, PRN, Starting on 01/31/22 at 1148, Until 01/31/22 at 1427, Anesthesia Intra-op, Routine PHENYLephrine in NS (PF) (JORDIN-SYNEPHRINE) Given 01/31/2022 10:41 AM EDT 80 mcg 0.8 mg/10 mL (80 mcg/mL) multi-dose injection Syrg Intravenous, PRN, Starting on 01/31/22 at 1041, Until 01/31/22 at 1427, Anesthesia Intra-op, Routine propofoL (Diprivan) (10 mg/mL) New Bag 01/31/2022 10:57 50 mcg /kg/min 34.35 mL/hr infusion AM EDT Intravenous, CONTINUOUS PRN, Starting on 01/31/22 at 1057, Until 01/31/22 at 1427, Anesthesia Intra-op, Routine propofoL (Diprivan) 10 mg/mL bolus injection Given 09/2021 10:41 AM EDT 200 mg (Anesthesia) Intravenous, PRN, Starting on 01/31/22 at 1041, Until 01/31/22 at 1427, Anesthesia Intra-op documented in this encounter Additional Health Concerns Infection Onset Date Last Indicated Resolved Time COVID-19Comment: Date of symptom onset: Asymptomatic/unknown 01/23/2022 01/23/2022 02/03/2022 8:46 AM EDT Date of positive test: 01/23/22 Precautions may be discontinued by the [facility] care team after the required isolation period (10 or 20 days, depending on the clinical circumstances) when the patient is clinically improving and has be en afebrile for 24 hours without fever reducing medications. Estimated date patient will be eligible for precaution removal: 02/03/22 Please call [phone] with questions. documented as of this encounter Care Teams Parachute Taper Relationship Specialty Start Date End Date None PCP - General 03/10/19 None documented as of this encounter
--- OUTSIDE RECORDS SUMMARY | 2022-04-21 11:44 | XMS_ITS | Encounter Summary ---
:1990 Author Organization [place] [id number] Care Team Providers Name Role Phone None Primary Care Provider Unavailable Reason for Visit Auth/Cert Specialty Diagnoses / Procedures Referred By Contact Refer red To Contact Diagnoses Cardiac arrest intubated med misuse/covid Tex Robles MD [facility] Procedures ER IPI Admit [facility] [place] [address] Referral ID Status Reason Start Date Expiration Date Visits Requ ested Visits Authorized [id number] 1 1 Encounter Details Date Type Department Care Team Description 01/29/2022 Surgery Main Operating Room Tom Valdovinos MD DEBRIDEMENT SKIN, [facility], MUSCLE, BONE, Hospital LOWER EXTREMITY ([facility] ORTHOPAEDIC S URGERY 4.1) [place] [phone] Social History Tobacco Use Types Packs/Day Years [...] Sign Reading Time Taken Comments Blood Pressure 158/104 01/29/2022 2:00 PM EDT Pulse 103 01/29/2022 2:45 PM EDT Temperature 37.9 ??C (100.2 ??F) 01/29/2022 2:00 PM EDT Respiratory Rate 30 01/29/2022 2:45 PM EDT Oxygen Saturation 100% 01/29/2022 2:45 PM EDT Inhaled Oxygen Concentration - - Weight 116.7 kg (257 lb 4.4 oz) 01/29/2022 12:00 AM EDT Height 182.9 cm (6') 01/23/2022 [...] ??? Mandible fracture HPI: (Per Cristina Hillman, INDUSTRIAL PAINTER on 01/23/2022) History provided by patient's father and chart review. The patient was found by his father at 5pm this evening after an unknown period of down-time. The patient was able to speak and reported left armpain; he also reported taking fentanyl. His father called 911. On EMS arrival he was given narcan without change to neuro exam. The transport events to [facility] are not clear, but the patient [...] was started on levophed and transferred to [facility] for ongoing management. ?? Urine drug screen: +barbiturates, +oxycodone, +opiates Tylenol, salicylates, and ethanol were negative ?? Notable labs: WBC 27.6 Hgb 21.5 Plts 383 ?? K 7.8-> 5.4 CO2 11 BUN 32 Cr 4.37 AG 35 Lactate >10 ?? AST 3588 ALT 990 ?? Trop-I >9000 ?? SARS-CoV-2 RNA detected ? En-route to [facility] he was given boluses of ketamine for [...] escalated. On 02/10 [facility] and transferred back to the floor on [...] Allowed for activity as tolerated. Weaning dilaudid LAYER OFF. Seen by PT/OT with rec for rehab. 03/17: Dressings changed at bedside. Continue LAYER OFF weaning. Low phos, high protein, high calorie diet.IV vanc and meropenem started (-03/19) and PO vanc (- 03/26). Emesis x1. 03/18: LAYER OFF dc'd. BIT consulted for suboxone. Bedside dressing change. 03/19: To be dc'd to [facility] with bed availability. High UOP w/ [...] who have questions please contact the health career technical education teacher that requested your imaging first. Head wo Contrast (Generic) (Exam End: 01/23/2022 3:58 AM) Impression Globi pallidi infarcts. Mild cerebral edema. Thank you for letting us participate in the care of this patient. If you are a health care provider and have any questions regarding this report, please contact the number below. For patients who have questions please contact the health career technical education teacher that requested your imaging first. Abdomen 1 [...] who have questions please contact the health career technical education teacher that requested your imaging first. Lower Extremity [...] who have questions please contact the health career technical education teacher that requested your imaging first. Chest wo [...] who have questions please contact the health career technical education teacher that requested your imaging first. Upper Extremity [...] who have questions please contact the health career technical education teacher that requested your imaging first. Forearm Left [...] who have questions please contact the health career technical education teacher that requested your imaging first. Chest One [...] who have questions please contact the health career technical education teacher that requested your imaging first. Femur 2 views Left (Generic) (Exam End: 01/23/2022 2:04 PM) Impression No significant osseous finding. Thank you for letting us participate in the care of this patient. If you are a health care provider and have any questions regarding this report, please contact the number below. For patients who have questions please contact the health career technical education teacher that requested your imaging first. Electronically signed by: Lisandro Pruett MD, [facility] ([phone]), at 01/23/2022 2:10 PM XR Tibia Fibula Left (Generic) (Exam End: 01/23/2022 2:04 PM) Impression No bony abnormality seen. Thank you for letting us participate in the care of this patient. If you are a health care provider and have any questions regarding this report, please contact the number below. For patients who have questions please contact the health career technical education teacher that requested your imaging first. Chest One [...] who have questions please contact the health career technical education teacher that requested your imaging first. Electronically signed by: Lisandro Pruett MD, [facility] ([phone]), at 01/23/2022 5:01 PM MRI Brain wo [...] who have questions please contact the health career technical education teacher that requested your imaging first. Angiogram [place] [facility] (Exam End: 01/24/2022 11:32 PM) Impression Normal appearance of the large and medium size arteries of the head and neck Thank you for letting us participate in the care of this patient. If you are a health care provider and have any questions regarding this report, please contact the number below. For patients who have questions please contact the health career technical education teacher that requested your imaging first. Angiogram Carotids [...] who have questions please contact the health career technical education teacher that requested your imaging first. Chest Abdomen [...] who have questions please contact the health career technical education teacher that requested your imaging first. Arteriogram Lower [...] 2. 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 Monitor for Right [...] a permanent image was stored. A 5 Lebanese sheath was placed. Vessel accessed: Right common femoral artery Access technique: Micropuncture set with 21 gauge needle Left pelvic angiography The left pelvic arterial system was catheterized using a 150 cm 0.035 3J guidewire, 5 Lebanese Berenstein catheter, 3 Lebanese renegade STC microcatheter and wire. Vessel catheterized: [...] who have questions please contact the health career technical education teacher that requested your imaging first. Chest One [...] who have questions please contact the health career technical education teacher that requested your imaging first. Brain wo [...] who have questions please contact the health career technical education teacher that requested your imaging first. Abdomen 1 view (Generic) (Exam End: 02/13/2022 8:10 AM) Impression No obstruction. No perforation. Thank you for letting us participate in the care of this patient. If you are a health care provider and have any questions regarding this report, please contact the number below. For patients who have questions please contact the health career technical education teacher that requested your imaging first. Electronically signed by: Mercedes Redding MD, [facility] ([phone]), at 02/13/2022 8:[address] Abdomen & [...] who have questions please contact the health career technical education teacher that requested your imaging first. Femur w [...] who have questions please contact the health career technical education teacher that requested your imaging first. PICC Placement [...] who have questions please contact the health career technical education teacher that requested your imaging first. Electronically signed by: Danielle Figueroa MD, [facility] ([phone]), at 03/03/2022 2:49 PM Discharge Exam: Last value Range last 12 hrs Temperature Temp: 36.4 ??C (97.5 ??F) Temp: -- Heart Rate Heart Rate: (!) 118 Heart Rate: [118] Blood Pressure BP: 154/87 BP: (154)/(87) Respiratory Rate Resp: 16 Resp: [16] SpO2 SpO2: 97 % SpO2: [97 %] I/Os: I/O last 3 completed shifts: In: 5040 [P.O.:5040] Out: 68672 [Urine:96719] I/O this shift: In: - Out: 500 [Urine:500] Gen: AOx3, NAD, resting comfortably CVS: Regular rate and rhythm Resp: breathing comfortably on RA Abd: soft, non-tender, nondistended Ext:: LLE wound with dressing in place,??non-tender,??L forearm wound under dressing, non tender.??Incision: dressing c/d/i. No evidence of hematoma/seroma/infection Discharge Plans: Discharge to: Rehab Name of facility: [facility] Contact information: Dr. Rosa, VNA: No Discharge Conditions/Prognosis: Stable Discharge Medications: The following medications have been prescribed for you. If you notice any adverse reactions to your medications, please contact your primary care physician immediately or go to the nearest Emergency Department. In addition to these medications, you are being prescribed Suboxone 8mg BID. Please continue this medication at [facility]. Your Medications New Medications Dose [...] Date: 10/22/22 Question Response Notes Preferred location? [facility] [106] Indication for study/signs & symptoms [...] 1. You will have follow-up appointments at [facility] as indicated in the ???Future Appointments and [...] on the next business day. Please call [phone] if you do not hear from us by that time, as your timely follow-up is very important to us. Your care was managed by the Trauma and Acute Care Surgery Team at [facility]. If you have any questions or concerns, please feel free to contact us. Provider Contact Information: General Surgery: [facility] (after business hours): CC: Compartment syndrome Primary Care Physician: None General Instructions Substance Use Treatment, Harm-Reduction, and Relapse Prevention Resources Residential Treatment: [facility] [address] [place], [place] [id number] [address] [address] Intensive Outpatient Programs: Quitting Time [facility] [address] [place] [address] Health Care and Rehabilitative Services [address] [place] [address] [phone] Individual Counseling: [facility] [address] [place] [address] ALEX Whitlock [address] [place] [address] ----and---- [address] [place] [address] [facility] [address] [place], [place] [id number] Offers EMDR Therapy You may also search www.psychologytoday.com or dial 4tiitoo for therapists in your area. EMDR Therapy [...] completed in fewer sessions than other psychotherapies. www.emdria.org/cuorj-fqam-qauziay/ Medication Assisted Therapy: [facility] [address] [place], [place] [id number] [address] [id number] [facility] [address] [place] [address] [facility], [place] [phone] [facility] [address] [place] [address] [facility], [place] [id number] Peer Support Groups Alcoholics Anonymous (AA) [place]: , www.nhaa.net Narcotics Anonymous (NA) [place]: , www.gmana.org Community Peer Support Center Journey to Recovery [address] [place], [place] Online AA and NA Meetings AA, NA, Refuge Recovery, SMART Recovery www.Content Fleet.Symcircle AA Video Meetings www.aa-intergroup.org/directory_audio-video.php AA Text Chat Meetings www.aa.intergroup.org/directory.php NA Video Meetings www.virtual-na.org/meetings NA Text Chat Meetings Www.neveraloneclub.org SMART Recovery Meetings via Zoom 5:00-6:00pm, free and open to all To join Zoom meetin. Visit www.Pearl Therapeutics 2. Click on calendar on top of toolbar 3. Find the correct meeting date and time 4. Click the zoom link and enter password provided Additional Substance Use Treatment Resources Www.vtaddictionservices.org www.healthvermont.gov/alcohol-drugs www.zzogejo685.org/ (Search for Substance Use) www.Appetite+/ Www.rethinkingdrinking.niaaa.nih.gov/ www.[facility].gov/jvalfyczog-kncckpzg-acljwuspm/rzwbvtixzwye-fdgdzuj-ccln/treatment -practitioner-bisque brusher Mental Health Crisis [facility] Crisis Line: Dial 988 www.[facility].gov/find-help/988 Harm-Reduction Resources Mobile operations. For more information about receiving supplies: including syringe exchange, fentanyl test strips, and naloxone, or to schedule an appointment: [place] clients call and leave a message for Graciela (ext. 105) or Doc Liu (ext. 104). [place] clients call to speak with Doc Choi [...] is being approved. Online Stress Reduction Resources www.ITS Compliance.Symcircle/videos-features/videos/zdfnnffgw-rbqymqsrr-2-7-8-breath/ www.AgInfoLink.org/2013/awcpqkush-dbsscmzjq-titurrn-moment/ www.headsFibersparce.Symcircle/ www.mindful.org/ www.freelemonade.ukdfLimeadeness.org/ Employment Agency [employer] [address] [place] [address] secondchances@Bluetest.Symcircle Providing an opportunity for successful employment and recovery by empowering individuals to manage challenges because of substance use addiction and past convictions. CC: Compartment Syndrome Signed: Vance Curiel MD PGY1 Acute Care Surgery Team Pager [phone] 03/23/2022 4:18 PM I saw and evaluated [...] this encounter Discharge Instructions Discharge InstructionsMiguel Prather, INDUSTRIAL PAINTER - 02/12/2022 3:40 PM EDT Substance Use Treatment, Harm-Reduction, and Relapse Prevention Resources Residential Treatment: [facility] [address] [place], [place] [phone] [facility] [address] [place], [place] [address] Intensive Outpatient Programs: [facility] [address] [place], [place] [phone] Health Care and Rehabilitative Services [address] [place] [address] [phone] Individual Counseling: [facility] [address] [place], [place] [address] ALEX Whitlock [address] [place] [address] ----and---- [address] [place], [place] [address] [facility] [address] [place], [place] [phone] Offers EMDR Therapy You may also search www.psychologytoday.com or Tripware for therapists in your area. EMDR Therapy [...] completed in fewer sessions than other psychotherapies. www.emdria.org/ahywm-filj-tbkcknq/ Medication Assisted Therapy: [facility] [address] [place], [place] [address] [address] [id number] [facility] [address] [place] [address] [place] [address] [facility] [address] [place] [address] [place] [address] Peer Support Groups Alcoholics Anonymous (AA) [place]: , www.nhaa.net Narcotics Anonymous (NA) [place]: , www.gmana.org Community Peer Support Center Journey to Recovery [address] [place], [place] Online AA and NA Meetings AA, NA, Refuge Recovery, SMART Recovery www.Zero Locus AA Video Meetings www.aaMustHaveMenusintergroup.org/directory_audio-video.php AA Text Chat Meetings www.aaFaceBuzzintergroup.org/directory.php NA Video Meetings www.Millennium Laboratoriesna.org/meetings NA Text Chat Meetings Www.Newslinesaloneclub.org SMART Recovery Meetings via Zoom 5:00-6:00pm, free and open to all To join Zoom meeting: Visit www.Pearl Therapeutics Click on calendar on top of toolbar Find the correct meeting date and time Click the zoom link and enter password provided Additional Substance Use Treatment Resources Www.vtaddictionservices.org www.healthvermont.gov/alcohol-drugs www.[place] [address].org/ (Search for Substance Use) www.Hordspot.Symcircle/ Www.rethinkingdrinking.niaaa.nih.gov/ www.samhsa.gov/gmccjcsxfz-lryafvgk-gpezxbegx/gesoagfaljvr-xctsgsg-bpql/treatment -practitioner-bisque brusher Mental Health Crisis [facility] Crisis Line: Dial 988 www.samhsa.gov/find-help/988 Harm-Reduction Resources Mobile Pulse. For more information about receiving supplies: including syringe exchange, fentanyl test strips, and naloxone, or to schedule an appointment: [place] clients call and leave a message for Graciela (ext. 105) or Doc Liu (ext. 104). [place] clients call to speak with Doc F. [...] is being approved. Online Stress Reduction Resources www.SimpleSite/videos-features/videos/yevklayqq-umpnwsomy-9-7-8-breath/ www.AgInfoLink.org/2013/dwovftjdm-mrwalanes-pqwnbng-moment/ www.Better Bean/ www.mindful.org/ www.GlossyBox.org/ Employment Agency [employer] [address] [place] [address] Media Convergence Group[employer] Providing an opportunity for successful employment and [...] 1. You will have follow-up appointments at [facility] as indicated in the ???Future Appointments and [...] appointment on the next day. Please call [phone] if you do not hear from us by that time, as your timely follow-up is very important to us. Your care was managed by the Trauma and Acute Care Surgery Team at [facility]. If you have any questions or concerns, please feel free to contact us. Provider Contact Information: General Surgery: [facility] (after business hours): CC: Compartment syndrome Primary Care Physician: None AttachmentsThe following attachments cannot be sent through Care Everywhere. Compartment Syndrome (Cymro)documented in this encounter Medications at Time of [...] 03/23/2022 3:13 PM EDT [facility] Report given to ÁNGEL Roland. Ambulance arrived 1430 to transport pt. Piccremains in place. Hernán Hobbs - 03/23/2022 2:11 PM EDT Office of Care Management/Contact Lens Fitter Patient Name: Alix [place] : 1990 Patient has been offered an Acute IRF bed at [facility]. [facility] arranged for a BLS transport at 1430. Ambulance will need: Medicare ambulance form completed and signed (MD or Copy Director RN/DIGITAL SALES EXECUTIVE) Copy of patient demographics [place] [facility] DNR/DNI order, if active MD to MD report to Dr. Rosa at [phone]. Please call Nursing Report to [phone], ask for sightseeing guide. Info to accompany patient: Copies of Medication Administration Records and IV sheets for past 10 days. Plan: Contact Lens Fitter will be available to the patient and Copy Director-RN and/or Tumbling Instructor for further assistance. Patient will be discharged to: [place] [address] Hernán Hobbs Contact Lens Fitter Sivakumar Trevino PTA - 03/23/2022 1:25 PM [...] managment/propulsion training. Total Minutes, Physical Therapy: 55 ([phone]) Billing Code: TESx2, TEFx2 Sivakumar TrevinoSVETLANA Pager: [phone] Physical Therapy Inpatient Rehabilitation Department Lizzy Love RN - 03/23/2022 12:41 PM EDT Physician Certification Statement for Non-Emergency Ambulance Services Section I - General Information Alix [place] 1990 Medicaid Number:[id number] Transport Date: 03/23/2022 (PCS is valid for round trips on this date and for all repetitive trips in the 60-day range as notedbelow.) Origin: [facility] Destination: [facility] Acute Rehabilitation and Sub-Acute (Swing) Rehab Levels of Care [address] [place] [address] Is the patient's stay covered under Medicare [...] wheelchair van (i.e. seated during transport, without certified medical biller or monitoring?): No 4) In addition to [...] by the Centers of Medicare and MedicaidServices ([facility]) to support the determination of medical necessity [...] pt need to f-u with surgeon or COOLER MAN (please indicate reason if attending provider): Attending [...] and left superior gluteal artery via R MONTESSORI LEAD TEACHER access. Reason for intervention: Follow up Nutrition [...] 02/05/2022 TRIG 359 01/26/2022 CRP <3.0 04/26/2021 [id number] 02/03/2022 25OHVITD 12 (L) 02/19/2022 SFOLATE [...] encounter: 78.2 kg (172 lb 8 oz). Reliance Body Weight: 80.9kg- Hamwi Usual Body Weight: [...] Based on IBW 80.9kg Estimated needs: Calories: 4504-3490 (25-30kcal/kg) Protein: 120 grams (1.5 g/kg IBW) Nutrition Focused Physical Exam (NFPE): Performed on 03/01/22. Subcutaneous fat loss at Orbital region: Moderate Upper arm region (triceps/biceps): Mild Thoracic and lumbar region (ribs, lower back and maxillary line): Not assessed Lean muscle loss to Hindu region (temporalis muscle): Moderate Clavicle bone region [...] while inpatient THANKS KAYLAH JANG RD Pager #:[phone] Josh Peck RN - 03/22/2022 6:30 PM [...] difficulty obtaining soboxone prescription. Bed available at [facility]. Dressing changes today by nursing. Neuro [...] Gomez MD PGY1 Acute Care Surgery pager [phone] I saw and evaluated the patient with [...] Hidalgo MD PGY5 Acute Care Surgery pager [phone] Attending Addendum I have seen and examined [...] Hidalgo MD PGY5 Acute Care Surgery pager [phone] Attending Addendum I have seen and examined [...] 4:11 PM EDT Per request this senior technical writer updated patient on inpatient rehabilitation facility search, informed that [facility] is following the referral, however at this time does not have acute rehab bed availability till 03/22/2022. Alix would like referral to [facility] which is closed to home. Discussed that [facility] is SNF with less therapy hours available. Patient verbalized understanding and in would like referral placed to: [address] [address] RS please submit referral with all supporting [...] Started Suboxone per Psych recs. - Discontinued LAYER OFF Dilaudid yesterday (03/18). - Discontinued IV Vanc [...] is ongoing. Possibly will be discharged to [facility] but there are no beds currently. He may need a COVID test prior to discharge per facility request; otherwise, monitor with weekly CBCs and BMPs. He had his dressings changed at the bedside yesterday with Dr. Chatterjee who used Aquafor instead of silver gel. LAYER OFF (dilaudid) was discontinued yesterday (03/18). He completed [...] status; PT/OT consulted: recommend acute rehab - Ross Carrier Driver sent requests to 2 locations with ongoing [...] plan to change again today. - D/C LAYER OFF (Dilaudid) today. - On IV Vanc and [...] is ongoing. Possibly will be discharged to [facility] but there are no beds currently. He had his dressings changed at the bedside yesterday with Dr. Chatterjee who used bacitracin; completed another dressing change today with Aquafor instead of silver gel. LAYER OFF (dilaudid) was discontinued today. Diet remains as high calorie/protein with the addition of TUMS at meals. He will complete a course of IV Vancomycin and Meropenem (ends 03/19) before switching to PO Vancomycin (ends 03/26). Plan: Neuro: #Pain - [place] PO Tylenol 1000 mg q8h - D/c dilaudid LAYER OFF - PO Oxycodone 10-15 PRN Q4 #Polysubstance [...] status; PT/OT consulted: recommend acute rehab - [facility] Car[facility] Driver sent requests to 2 locations with ongoing [...] 03/26) as recommended by ID - Weaning LAYER OFF (dilaudid) with the plan to d/c it [...] managment/propulsion training. Total Minutes, Physical Therapy: 60 ([phone]) Billing Code: TEFx2, GT Sivakumar Trevino, ANIMAL RIDE MANAGER Pager: [phone] Physical Therapy Inpatient Rehabilitation Department Jeanette Chatterjee [...] 03/26) as recommended by ID - Weaning LAYER OFF (barbara) with the plan to d/c it [...] another dressing change tomorrow with silver gel. LAYER OFF will continue to be weaned. Diet was changed from low phosphorus to high calorie/protein with the addition of TUMS at meals. Additionally, his antibiotics were restarted today; he will complete a course of IV Vancomycin and Meropenem (ends 03/19) before switching to PO Vancomycin (ends 03/26). Plan: Neuro: #Pain - [place] PO Tylenol 1000 mg q8h - dilaudid LAYER OFF, weaning - PO Oxycodone 10-15 PRN Q4 [...] Dispo: Floor status; PT/OT consulted, recommend acute rehab--[employer] Car[employer] Driver sent requests to 2 locations. Code Status: [...] - Now off of antibiotics - Weaning LAYER OFF (dilaudid) Social History: Home setup: Pt lives [...] had pt perform gastroc stretch with leg safety assistant MMT L Gastroc 2-/5 Balance: Seated Static: [...] Pt limited in distance due to his LAYER OFF pump, but once DCd pt could likely [...] managment/propulsion training. Total Minutes, Physical Therapy: 40 ([phone]) Billing Code: DEACON SAMUELSSVETLANA Pager: [phone] Physical Therapy Inpatient Rehabilitation Department Jairo Kirkland [...] 431 msec Imaging: External records in - [facility]: Yes - CareEverywhere: No - [...] Felix MD Infectious Diseases Fellow- PGY4 Pager: [phone] 03/16/2022 2:15 PM ID Attending I have [...] LUE ?? Social History: Patient lives in [place], [place] with his dad. Home Setup: [address] [facility], 2 level home, bedroom on 1st level, bathroom available on 1st level, has a tub shower downstairs. DME: none Baseline ADL/Mobility: Pt reports he was independent w/ ADL's and IADL's, had worked for a [employer]. He enjoys hunting and fishing. He reports he likes [employer] music ?? Interval History: Pt to OR last week for LUE and LLE grafts. Per MD Note 03/16 - Now off of bedrest - Dressing change in the OR yesterday - Now off of antibiotics - Weaning LAYER OFF (dilaudid) Precautions/Special Considerations: SOAP/WATER; fall risk, LUE/LLE WBAT, L forearm and L thigh grafts, LAYER OFF S: I need some help with that [...] 2-4 times/wk Total Minutes, Occupational Therapy: 30 ([facility] x2 ([phone]) Pager: [phone] [facility] Occupational Therapy Rehabilitation Department Kaylah [...] and left superior gluteal artery via R MONTESSORI LEAD TEACHER access. Reason for intervention: Follow up Nutrition Recommendations: Regular diet ; enc high protein high calorie Given tendency toward intake < est needs, suggest omit low phosphorus restriction and give TUMs w/ meals Limit NPO to periods to only when necessary to avoid missing nutrition windows Encourage pt to continue double portions protein and milk with meals Discussed above w/ E. Sergio HARTLEY #[id number] Active Orders Diet High Protein - High [...] 02/05/2022 TRIG 359 01/26/2022 CRP <3.0 04/26/2021 [id number] 535 02/03/2022 25OHVITD 12 (L) 02/19/2022 SFOLATE [...] encounter: 78.9 kg (173 lb 15.1 oz). [place] Body Weight: 80.9kg- [place] Usual Body Weight: [...] Based on IBW 80.9kg Estimated needs: Calories: 7928-7367 (25-30kcal/kg) Protein: 120 grams (1.5 g/kg IBW) Nutrition Focused Physical Exam (NFPE): Performed on 03/01/22. Subcutaneous fat loss at Orbital region: Moderate Upper arm region (triceps/biceps): Mild Thoracic and lumbar region (ribs, lower back and maxillary line): Not assessed Lean muscle loss to Hindu region (temporalis muscle): Moderate Clavicle bone region [...] while inpatient THANKS KAYLAH JANG RD Pager #:[phone] Jeanette Chatterjee MD - 03/16/2022 5:38 AM [...] - Now off of antibiotics - Weaning LAYER OFF (dilaudid) Objective Vitals: Last Value Range last [...] Their notes will be sent by the [employer] Driver to the rehab facilities. Will likely have dressing change tomorrow. Currently weaning his dilaudid LAYER OFF. Plan: Neuro: #Pain - [place] PO Tylenol 1000 mg q8h - dilaudid LAYER OFF, weaning - PO Oxycodone 10-15 PRN Q4 [...] to toe assessment remains unchanged from previous district adviser. Patient states pain is 9/10, PRN medication given and pt repositioned. Dilaudid LAYER OFF infusing with LAYER OFF doseonly. No complaints of chest pain/SOB. No [...] recommendations below - Pain remains well-controlled with LAYER OFF and decreasing - Tolerating High calorie, high [...] bedrest. Plan: Neuro: [place] PO Tylenol, dilaudid LAYER OFF, PO Oxycodone 10-15 PRN Q4, Zofran PRN, [...] Oxycodone given. Takes sips of water easily. LAYER OFF re-started per order. Pt. Self dosing. Has [...] PICC line placed 03/03/2022 External Record in [facility]: Yes Care Everywhere:No Paper Record: [...] Felix MD Infectious Diseases Fellow- PGY4 Pager: [phone] 03/15/2022 8:55 AM I have discussed case with Dr. Jairo Kirkland This note was created using [employer] voice recognition software. ID Attending I have [...] Reporting 8 to 10/10 pain, using dilaudid LAYER OFF and PRN oxygen given x2. No BM [...] recommendations below - Pain remains well-controlled with LAYER OFF and decreasing - Tolerating High calorie, high [...] that time. Plan: Neuro: [place] PO Tylenol, LAYER OFF, PO Oxycodone 10-15 PRN Q4, Zofran PRN [...] kerlix, coban - Pain remains well-controlled with LAYER OFF - Tolerating High calorie, high protein diet [...] 1g Q8H. Plan: Neuro: [place] PO Tylenol, LAYER OFF PO Oxycodone 10-15 PRN Q4, Zofran PRN [...] JEFFERY Acute Care Surgery 03/13/22 Team Pager [phone] A medical student assisted me in the [...] 10:41 AM EDT Patient came back to [facility] from PACU via bed in stable condition. Amy Pineda RN - 03/13/2022 10:31 AM EDT 0931 Pt arrived to PACU lethargic, oral airway in place. Connected to monitors, alarms set and reviewed. VSS. LUE/LLE dressings CDI, only to be changed by MD. RLE dressings with dried drainage. 0945 Pt more awake, c/p pain, utilizizing LAYER OFF. 1000 Tolerating sips of lenora opal. Report given to ÁNGEL Deleon on [facility] Adrienne Tejada RN - 03/13/2022 7:52 AM [...] suction - Pain remains well controlled with LAYER OFF - Tolerating High calorie, high protein diet [...] Peterson Acute Care Surgery 03/12/22 Team Pager [phone] A medical student assisted me in the [...] Chahal MD Resident, General Surgery 03/12/22 Jaswinder hCung PTA - 03/12/2022 8:30 AM EDT Physical Therapy Note Pt on bedrest, will follow up as appropriate when allowed to mobilize out of bed. JASWINDER CHUNG PTA Pager: [phone] Physical Therapy Inpatient Rehabilitation Department Adrienne Tejada [...] any alarming from wound vac, immediately page [phone]. S/p 3 days of IV iron, now [...] 03/14 for OR. If any alarming, page [phone]. - s/p multiple fasciotomies, OR debridements, and [...] VAC particularly not holding suction please page [phone] immediately given that thiswill affect skin graft take -High-protein high-calorie low Phos diet -Plan to return to the operating room on Tuesday for VAC removal, bedrest until then -LAYER OFF for pain control will wean as able Veto Hidalgo MD PGY 5 Acute care surgery pager [phone] Marylou Retana RN - 03/10/2022 7:12 PM EDT Patient arrived back to unit from PACU @ approximately 1630. VSS on RA, drowsy but arouses to voice.LAYER OFF in place, pt continues to report 10/10 [...] 4 03/10/22 Acute Care Surgery Team Pager [phone] A medical student assisted me in the [...] LUE ?? Social History: Patient lives in [place], [place] with his dad. Home Setup: [address] [facility], 2 level home, bedroom on 1st level, bathroom available on 1st level, has a tub shower downstairs. DME: none Baseline ADL/Mobility: Pt reports he was independent w/ ADL's and IADL's, had worked for a [employer]. He enjoys hunting and fishing. He reports [...] Pt demonstrated ability to doff socks with food supervisor and don socks with sock aid ?? [...] 2-4 times/wk Total Minutes, Occupational Therapy: 32 ([facility] x2 ([phone]) Pager: [phone] [facility] Occupational Therapy Rehabilitation Department Tanesha [...] Denilson Muniz - 03/08/2022 3:14 PM EDT Groover Operator Encounter Note Patient Name: Alix Holland : [id number] MR#: [id number] Admit Date: 01/23/2022 12:29 AM Hospital Day 44 days Narrative:Visited to introduce and assess acceptance of Groover Operator services.Patient was not available and I will [...] IADLs, drives, used to work for a [employer] but is not currently working. Enjoys [...] Therapy: 40 TE-F x 3 JASWINDER CHUNG, ANIMAL RIDE MANAGER 03/08/2022 Pager: [phone] Physical Therapy Inpatient Rehabilitation Department Lizzy Miranda, [...] and left superior gluteal artery via R MONTESSORI LEAD TEACHER access. Reason for intervention: Follow up Nutrition [...] 02/05/2022 TRIG 359 01/26/2022 CRP <3.0 04/26/2021 [id number] 535 02/03/2022 25OHVITD 12 (L) 02/19/2022 SFOLATE [...] encounter: 77.4 kg (170 lb 11.2 oz). [place] Body Weight: 80.9kg- [place] Usual Body Weight: [...] Based on IBW 80.9kg Estimated needs: Calories: 8390-2008 (25-30kcal/kg) Protein: 120 grams (1.5 g/kg UBW) Nutrition Focused Physical Exam (NFPE): Performed on 03/01/22. Subcutaneous fat loss at Orbital region: Moderate Upper arm region (triceps/biceps): Mild Thoracic and lumbar region (ribs, lower back and maxillary line): Not assessed Lean muscle loss to Hindu region (temporalis muscle): Moderate Clavicle bone region [...] while inpatient THANKS Lizzy Miranda RD Pager #:[phone] Nancy Chahal MD - 03/08/2022 2:35 PM [...] LLE wound vac change was performed at [facility]. Healthy granulation tissue was found in the [...] clinic follow-up - Daily weights 77.4 Heme: AJVON. Transfuse for Hgb < 7. ID: s/p [...] organisms. Wound vac continues to clog requiring om pad changes.Remains on diet with plan for [...] WOUND VAC NOTE Alix Holland 31 y.o./male [id number] DATE: 03/07/22 Admit Date: 01/23/2022 12:29 AM [...] Studies: No recent imaging Assessment and Plan Alxi Holland is a [...] Therapy: 30 TE-F x 2 JASWINDER CHUNG, ANIMAL RIDE MANAGER 03/05/2022 Pager: [phone] Physical Therapy Inpatient Rehabilitation Department Tanesha Patel [...] LUE ?? Social History: Patient lives in [place], [place] with his dad. Home Setup: [address], 2 level home, bedroom on 1st level, bathroom available on 1st level, has a tub shower downstairs. DME: none Baseline ADL/Mobility: Pt reports he was independent w/ ADL's and IADL's, had worked for a [employer]. He enjoys hunting and fishing. He reports he likes [employer] music ?? Interval History: OR yesterday for [...] 2-4 times/wk Total Minutes, Occupational Therapy: 35 ([facility] x2 ([phone]) Pager: [phone] [facility] Occupational Therapy Rehabilitation Department Jayme [...] IADLs, drives, used to work for a [employer] company but is not currently working. Enjoys [...] Therapy: 30 TE-F x 2 JASWINDER CHUNG, ANIMAL RIDE MANAGER 03/03/2022 Pager: [phone] Physical Therapy Inpatient Rehabilitation Department Jayme Armstrong [...] LUE ?? Social History: Patient lives in [place], [place] with his dad. Home Setup: [address], 2 level home, bedroom on 1st level, bathroom available on 1st level, has a tub shower downstairs. DME: none Baseline ADL/Mobility: Pt reports he was independent w/ ADL's and IADL's, had worked for a [employer]. He enjoys hunting and fishing. He reports [...] 2-4 times/wk Total Minutes, Occupational Therapy: 35 ([facility] x2 ([phone]) Pager: [phone] [facility] Occupational Therapy Rehabilitation Department Madhavi [...] Given lenora opal and water at bedside, [place] sandwich requested. LUE wound VAC dressing intact [...] Denilson Muniz - 03/01/2022 3:38 PM EDT [facility] Encounter Note Patient Name: Alix Holland : [id number] MR#: [id number] Admit Date: 01/23/2022 12:29 AM Hospital Day [...] and left superior gluteal artery via R MONTESSORI LEAD TEACHER access. Reason for intervention: Follow up Nutrition [...] 02/05/2022 TRIG 359 01/26/2022 CRP <3.0 04/26/2021 [id number] 535 02/03/2022 25OHVITD 12 (L) 02/19/2022 SFOLATE [...] encounter: 82.1 kg (180 lb 14.4 oz). [place] Body Weight: 80.9kg- [place] Usual Body Weight: [...] Based on IBW 80.9kg Estimated needs: Calories: 9444-9775 (25-30kcal/kg) Protein: 120 grams (1.5 g/kg UBW) - pt on iHD w/ wound vacs Nutrition Focused Physical Exam (NFPE): Performed on 03/01/22. Subcutaneous fat loss at Orbital region: Moderate Upper arm region (triceps/biceps): Mild Thoracic and lumbar region (ribs, lower back and maxillary line): Not assessed Lean muscle loss to Hindu region (temporalis muscle): Moderate Clavicle bone region [...] inpatient Thank you, KAYLAH JANG RD Pager #:[phone] Josh Peck RN - 03/01/2022 2:00 AM [...] PM EDT Hypertension/Nephrology Inpatient Follow-up Alix Holland [id number] 1990 ID: 31 y.o. old male seen [...] changed vitamin D3 400 U -> D2 38151 weekly for six weeks given his severe deficiency. Would recommend rechecking a level after this (likely after discharge). - Continue daily MV - Avoid NSAIDs, contrast, and other nephrotoxic agents as able - Agree with iron studies on 03/01 as he will likely need replacement This case was discussed with staff manager ecommerce Dr. Thomas. We will sign off at this time. Please do not hesitate to contact me with questions or concerns: Ph [phone] Pg [phone]. Dominic Almanza MD Nephrology Fellow, [...] protein intake. Dania Thomas MD Nephrology Pager: [phone] Sixto Medina MD - 02/28/2022 10:28 AM [...] requires dialysis; they recommended starting weekly EPO 62670 units, given 02/25. PIV access unable to [...] PM EDT Hypertension/Nephrology Inpatient Follow-up Alix Holland [id number] 1990 ID: 31 y.o. old male seen [...] replacement This case was discussed with staff manager ecommerce Dr. Thomas. We will follow peripherally at this time.Please do not hesitate to contact me with questions or concerns: Ph [phone] Pg [phone]. Dominic Almanza MD Nephrology Fellow, PGY-4 Associated attestation - Dania Thomas MD - 02/27/2022 5:33 PM EDT The patient was seen and examined with the nephrology fellow. Please see the nephrology fellow's note from today for details. I have reviewed the fellow's note and agree with the exam, and assessment and plan. Dania Thomas MD Nephrology Pager: [phone] Sixto Medina MD - 02/26/2022 3:14 PM [...] 2.39 (2.94), Nephrology following; Gave weekly EPO 86206 yesterday, start IV iron after completing Vancomycin [...] requires dialysis; they recommended starting weekly EPO 51871 units, given yesterday. Will obtain PIV access [...] Jareth Nino MD, MPH Section of Nephrology #[id number] Dania Cotter RN - 02/26/2022 10:02 AM EDT 0950 Patient admitted to PACU. Hand off received from Tamika WESTON, [facility] care assumed. Assessments as documented. Monitors on, alarms audible and individualized to patient. 1015 Hand off to ÁNGEL Ontiveros [facility] Glenna Bejarano OT - 02/26/2022 [...] Voiding adequate amounts in urinal. Patient worked w/[employer] and stood at bedside. Lift used to [...] reviewed with no apparent indication for urgent FUNDRAISING OFFICER. Access: Can remove dialysis catheter. We are [...] Jareth Nino MD, MPH Section of Nephrology #[id number] Jaswinder Chung [facility] - 02/25/2022 12:05 PM EDT Physical [...] Therapy: 30 TE-F x 2 JASWINDER CHUNG, ANIMAL RIDE MANAGER 02/25/2022 Pager: [phone] Physical Therapy Inpatient Rehabilitation Department Sixto Medina [...] 28 (L) >=60 mL/min/1.73 m?? Vidhya Peñaloza #[id number] Associated attestation - Jareth Nino MD - [...] LUE ?? Social History: Patient lives in [place], [place] with his dad. Home Setup: [address] [facility], 2 level home, bedroom on 1st level, bathroom available on 1st level, has a tub shower downstairs. DME: none Baseline ADL/Mobility: Pt reports he was independent w/ ADL's and IADL's, had worked for a [employer]. He enjoys hunting and fishing. He reports [...] gave pt built up utensils for better double backer on utensils due to limited LUE strength [...] Occupational Therapy: 32 (1 SC 1 TAF ([phone])) Pager: [phone] Natalia Fong OT Occupational Therapy Rehabilitation Department *POC reviewed between MOP WORKER/OTR. Patient is now activity as tolerated with BUE/LE WBAT. See updated goals below. Dai Gerald OTR/L Pager [phone] Goals updated & extended to 03/08/22: -Patient [...] Phytoplex) 2 % ointment Topical (Top) BID Katilyn Rock MD Given at 02/23/22 0900 ??? [...] and left superior gluteal artery via R MONTESSORI LEAD TEACHER access. Reason for intervention: Follow up Nutrition [...] 02/05/2022 TRIG 359 01/26/2022 CRP <3.0 04/26/2021 [id number] 535 02/03/2022 SFOLATE 3.9 (L) 02/03/2022 IRON [...] encounter: 104.3 kg (229 lb 15 oz). [place] Body Weight: 80.9kg- [place] Usual Body Weight: [...] Based on IBW 80.9kg Estimated needs: Calories: 4871-3356 (25-30kcal/kg) Protein: 120 grams (1.5 g/kg UBW) [...] inpatient Thank you, Charlotte Castañeda RD Pager #:[phone] Jaswinder Chung PTA - 02/23/2022 11:00 AM [...] IADLs, drives, used to work for a [employer] but is not currently working. Enjoys [...] x 3 JASWINDER CHUNG PTA 02/23/2022 Pager: [phone] Physical Therapy Inpatient Rehabilitation Department Sixto Medina [...] MS4 02/24/2022 Acute Care Surgery Team pager [phone] A medical student assisted me in the [...] MD 02/22/2022 Acute Care Surgery Team pager [phone] Attending Addendum I have seen and examined [...] Melissa Gonzales MD Acute Care Surgery Pager [phone] Kevon Brian MD - 02/22/2022 10:29 AM [...] Sensitive Radiology/Studies/Procedures: No new imaging. Assessment: Alix Holalnd is a 31 y.o.male HTN, angioedema requiring [...] MD 02/21/2022 Acute Care Surgery Team pager [phone] Associated attestation - Gela Novak MD - [...] MS4 02/20/2022 Acute Care Surgery Team pager [phone] A medical student assisted me in the [...] 7. Requested Imaging: N/A 8. Disposition- floor Melsisa Gonzales MD Acute Care Surgery Pager [phone] Melissa Gonzales MD - 02/19/2022 2:52 PM [...] MD 02/19/2022 Acute Care Surgery Team pager [phone] Associated attestation - Gela Novak MD - [...] at a later time for OT. Collette Valenet MD - 02/18/2022 11:55 PM EDT I [...] mL) subcutaneous injection 5,000 Units 5,000 Units GzyklrmmqhkhI5H [facility] Collette Dye MD 5,000 Units at 02/18/22 [...] tablet 1,000 mg 1,000 mg Oral Q8H [facility] Collette Dye MD 1,000 mg at 02/18/22 [...] /HPF Stippled RBCs Present >1/HPF Vidhya Peñaloza #[phone] Dai Duarte, OT - 02/18/2022 2:48 PM [...] LUE ?? Social History: Patient lives in [place], [place] with his dad. Home Setup: [address], 2 level home, bedroom on 1st level, bathroom available on 1st level, has a tub shower downstairs. DME: none Baseline ADL/Mobility: Pt reports he was independent w/ ADL's and IADL's, had worked for a [employer]. He enjoys hunting and fishing. He reports he likes country music ?? Interval History: (Per MD note): NAEO Precautions/Special Considerations: SOAP/WATER; At risk to fall, flexiseal, L UE and L LE NWB; L forearm wound vac; LAYER OFF; Femoral A-line S: Ill try it I [...] Total Minutes, Occupational Therapy: 60 (tef x4 [phone]) Pager: [phone] AMA QURESHI, MOP WORKER Occupational Therapy Rehabilitation Department *POC reviewed between PEG/OTR. Patient is now activity as tolerated with BUE/LE WBAT. See updated goals below. Dai Duarte OTR/L Pager [phone] Goals updated & extended to 8/8/22: -Patient [...] MD 02/18/2022 Acute Care Surgery Team pager [phone] Associated attestation - Gela Novak MD - [...] mL) subcutaneous injection 5,000 Units 5,000 Units [id number] Collette Zacarias MD 5,000 Units at 02/17/22 [...] Moderate Neutrophils No microorganisms seen. Vidhya Kaur #[id number] Associated attestation - Bambi Pressley MD [...] MD 02/17/2022 Acute Care Surgery Team pager [phone] Associated attestation - Gela Novak MD - [...] Melissa Gonzales MD Acute Care Surgery Pager [phone] Tasha Matthews OTA - 02/17/2022 8:00 AM [...] better. However, at this time, he needs FUNDRAISING OFFICER. - Hemodynamically stable. PHYSICAL EXAM: Last value [...] mL) subcutaneous injection 5,000 Units 5,000 Units [id number] Collette Zacarias MD 5,000 Units at 02/16/22 [...] (H) 0.00 - 0.04 x10(3)/mcL Vidhya Peñaloza #[phone] Associated attestation - Bambi Pressley MD - [...] MD 02/16/2022 Acute Care Surgery Team pager [phone] Associated attestation - Gela Novak MD - [...] and left superior gluteal artery via R MONTESSORI LEAD TEACHER access. Reason for intervention: Follow up Nutrition [...] 02/05/2022 TRIG 359 01/26/2022 CRP <3.0 04/26/2021 [id number] 535 02/03/2022 SFOLATE 3.9 (L) 02/03/2022 IRON [...] encounter: 104.3 kg (229 lb 15 oz). [place] Body Weight: 80.9kg- [place] Usual Body Weight: [...] Based on IBW 80.9kg Estimated needs: Calories: 9099-2699 (25-30kcal/kg) Protein: 120 grams (1.5 g/kg UBW) [...] up while inpatient KAYLAH JANG RD Pager #:[phone] Vidhya Peñaloza MD - 02/15/2022 6:47 PM [...] with PMHx drug abuse, [facility] after he had cardiac arrest sec to [...] mL) subcutaneous injection 5,000 Units 5,000 Units JdggwibnguawG2A [place] Veto Hidalgo MD 5,000 Units at [...] Melissa Gonzales MD Acute Care Surgery Pager [phone] Melissa Gonzales MD - 02/15/2022 1:46 PM [...] MD 02/15/2022 Acute Care Surgery Team pager [phone] Associated attestation - Gela Novak MD - [...] in PACU. Report called to [facility] and buyer tobacco head. Ama Tucker RN - 02/15/2022 4:50 AM [...] EDT Hypertension/Nephrology Staff Inpatient Follow-up Alix Holland [id number] 1990 ID: 31 y.o. old male seen [...] MD 02/14/2022 Acute Care Surgery Team pager [phone] Jairo Kirkland MD - 02/13/2022 4:06 PM [...] EDT Hypertension/Nephrology Staff Inpatient Follow-up Alix Holland [id number] 1990 ID: 31 y.o. old male seen [...] chemistries otherwise stable. - no indication for FUNDRAISING OFFICER today - 1.5L/d fluid restriction - avoid [...] MD 02/13/2022 Acute Care Surgery Team pager [phone] Vidhya Peñaloza MD - 02/12/2022 8:33 PM [...] mL) subcutaneous injection 5,000 Units 5,000 Units JpptigbxqiirK7L [place] Kaitlyn Rock MD 5,000 Units at [...] next week. Meghan Prabhakar, PT DPT Pager #[phone] 02/12/2022 Physical Therapy Rehabilitation Department Parrish Betancourt [...] MD 02/12/2022 Acute Care Surgery Team pager [phone] SURGICAL ATTENDING NOTE: Pt seen and examined [...] mL) subcutaneous injection 5,000 Units 5,000 Units TrmitgrvjpacF3D Kaitlyn Valladares MD 5,000 Units at 02/11/222118 [...] tablet 1,000 mg 1,000 mg Oral Q8H [facility] Kaitlyn Rokc MD 1,000 mg at 02/11/222118 Recent Results [...] 6120 [P.O.:4850; I.V.:1009; Other:45; IV Piggyback:216] Out: 13414 [Other:57718; Stool:200] I/O this shift: In: 600 [P.O.:300; [...] - hemodynamically stable Jose Guadalupe Gandhi 02/11/2022 Gian Montaño MD Acute Care Surgery Team Pager [phone] 02/11/22 Sg Parra RN - 02/11/2022 2:36 PM EDT OUTCOME EVALUATION NOTE: ?? OUTCOME SUMMARY: Pt alert and oriented x4. On room air, no SOB and dyspnea. 8/10 general pain, relief with LAYER OFF dilaudid and PRN oral oxycodone. Wound vac [...] MD 02/11/2022 Acute Care Surgery Team pager [phone] Tamika Burk, RN - 02/11/2022 11:41 AM EDT Pt to PACU via bed from OR; monitors applied, alarms set and audible. Woke up well from Anesthesia; comfortable initially, then c/o LLE killing me. Pt given LAYER OFF, which he used independently. Given additional IV [...] and left superior gluteal artery via R MONTESSORI LEAD TEACHER access. Interval hx: Pt continues NPO for [...] discuss plan with provider Kaylie Montaño MD #[id number]. Active Orders Diet Regular diet Frequency: Effective [...] 02/05/2022 TRIG 359 01/26/2022 CRP <3.0 04/26/2021 [id number] 535 02/03/2022 SFOLATE 3.9 (L) 02/03/2022 IRON [...] encounter: 104.3 kg (229 lb 15 oz). [place] Body Weight: 80.9kg- [place] Usual Body Weight: [...] Based on IBW 80.9kg Estimated needs: Calories: 6421-7746 (25-30kcal/kg) Protein: 200+ grams (2.5 g/kg) - [...] up while inpatient KAYLAH JANG RD Pager #:[phone] Tanesha Patel RN - 02/11/2022 6:00 AM EDT OUTCOME EVALUATION NOTE: ?? OUTCOME SUMMARY: Pt AOx4. Had LAYER OFF Dilaudid, IV Dilaudid and PO oxycodone for pain. Dressings had been CDI. Wound vac in situ. NPO at MO for surgery today. Awaiting MRI schedule. For [...] pain 7-10/10 despite PRN oxy and dilaudid board saw runner, team aware. Q shift N/V checks, pulses dopplerable. Provider notified pt would need to disconnect from wound vacs for MRI, communication placed, ok to disconnect. NPO at midnight for washout of wounds. PLAN MOVING FORWARD: NPO at midnight for washout IHD MWF Q8 sodium levels LAYER OFF for pain Free water restriction 1L Vidhya Peñaloza MD - 02/10/2022 1:47 PM EDT NEPHROLOGY PROGRESS NOTE PATIENT: Alix Holland : 1990 Interval History: Patient seen and examined at bedside. On HD when seen. Tolerated HD well. I/O last 3 completed shifts: In: 6279 [P.O.:2030; I.V.:3362; Blood:350; Other:30; IV Piggyback:507] Out: 55706 [Other:79821; Stool:1025; Blood:20] I/O this shift: In: 2473 [...] mL) subcutaneous injection 5,000 Units 5,000 Units [id number] [place] Jeanette Escamilla APRN 5,000 Units at [...] mg/mL) in sodium chloride 0.9% 50 mL LAYER OFF infusion Intravenous LAYER OFF Only Jeanette Escamilla APRN 1 mL/hr at [...] Q1 Min PRN Jeanette Escamilla APRN ??? LAYER OFF hutton Intravenous Continuous PRN Jeanette Escamilla APRN ??? HYDROmorphone (mg) LAYER OFF shift total and Settings verification Intravenous 2 Times Daily- LAYER OFF Shift Total Jeanette Escamilla APRN ??? dronabinoL [...] was initially admitted to MICU 01/23 at [facility] after he was found down following [...] 02/10 0700 In: 4038 [P.O.:1250; I.V.:2350] Out: 86821 Physical Exam: General: no distress, awake in [...] pressors.Pain better controlled with PO medications and LAYER OFF. Nephrology is amenable to iHD in place of [facility]. ID following regarding C. diff treatment. PLAN: Neuro:?Toxic metabolic encephalopathy, bilateral globus pallidum infarcts, hx polysubstance abusewith difficult to control pain - Pain control: acetaminophen, Dilaudid LAYER OFF, oxycodone PRN, Dilaudid breakthrough - Marinol 10mg [...] MD, PGY2 Acute Care Surgery Team pager [phone] Jose Hernandez MD - 02/10/2022 12:47 PM [...] mg/mL) in sodium chloride 0.9% 50 mL LAYER OFF infusion ??? diphenhydrAMINE (Benadryl) (50 mg/mL) injection 25 mg ??? prochlorperazine (Compazine) (5 mg/mL) injection 5 mg ??? ondansetron (pf) (Zofran) (2 mg/mL) injection 4 mg ??? naloxone (Narcan) (0.4 mg/mL) injection 0.2 mg ??? LAYER OFF hutton ??? HYDROmorphone (mg) LAYER OFF shift total and Settings verification ??? dronabinoL (Marinol) capsule 10 mg ??? senna-docusate (Pericolace) 8.6-50 mg per tablet 2 tablet ??? folic acid (Folvite) tablet 1,000 mcg ??? thiamine (Vitamin B1) tablet 100 mg ??? acetaminophen (Tylenol) tablet 1,000 mg ??? HYDROmorphone 50 mg (02/07/22 8354) OBJECTIVE: Temp: [36.4 ??C (97.5 ??F)-37.4 ??C (99.4 ??F)] Heart Rate: [99-120] Resp: [12-26] BP: (120-124)/(69-74) Intake/Output Summary (Last 24 hours) at 02/10/2022 1247 Last data filed at 02/10/2022 1148 Gross per 24 hour Intake 4838 ml Output 96974 ml Net -9966 ml Body mass index [...] any changes, questions, or concerns please page [phone]. Activity: NWB LUE, NWB LLE DVT prophylaxis: [...] EDT Hypertension/Nephrology Staff Inpatient Follow-up Alix Holland [id number] 1990 ID: 31 y.o. old male seen [...] the MICU 01/23 s/p [place] arrest at [facility] in the setting ofbeing down for [...] control pain - pain control: acetaminophen, D. LAYER OFF - PRN Dilaudid for breakthrough pain, start [...] debride ment.?? Social History: Patient lives in [place], [place] with his dad. Home Setup: [address] [facility], 2 level home, bedroom on 1st level, bathroom available on 1st level, has a tub shower downstairs. DME: none Baseline ADL/Mobility: Pt reports he was independent w/ ADL's and IADL's, had worked for a [employer]. He enjoys hunting and fishing. He reports he likes country music ?? Precautions/Special Considerations: SOAP/WATER; At risk to fall, flexiseal, L UE and L LE NWB; L forearm wound vac; NPO, Bedrest; LAYER OFF; Femoral A-line S: My leg really hurts [...] to participate ?? Alert and oriented to: [facility], [place],. When asked the day of the [...] See PT note Pain: 8/10 to LLE; LAYER OFF in place Education: Pt/family/caregiver education ongoing regarding: [...] Total Minutes, Occupational Therapy: 34 (10:34-11:08) Pager: [phone] DAI DUARTE OT Occupational Therapy Rehabilitation Department [...] IADLs, drives, used to work for a [employer] company but is not currently working. Enjoys [...] (PT): 2-4 times/wk Time IN / OUT: 7921-3547 Total Minutes, Physical Therapy: 31 (TEFx2). Meghan Prabhakar PT DPT 02/09/2022 Pager: [phone] Physical Therapy Inpatient Rehabilitation Department Carlo Jackson [...] and left superior gluteal artery via R MONTESSORI LEAD TEACHER access. Interval hx: Pt continues NPO for OR today. Team hopeful to advance diet after OR. Reason for intervention: Malnutrition evaluation and TPN Nutrition Recommendations: ADAT and encourage good intake. Pt with high protein needs- please encourage intake of eggs, nuts, meats, turkmen yogurt, fish, and Ensure Enlive. Please order [...] able to discuss plan with provider Onur Dkue MD. . Active Orders Diet NPO diet [...] 02/05/2022 TRIG 359 01/26/2022 CRP <3.0 04/26/2021 [id number] 535 02/03/2022 SFOLATE 3.9 (L) 02/03/2022 IRON [...] encounter: 111.7 kg (246 lb 4.1 oz). [place] Body Weight: 80.9kg- [place] Usual Body Weight: [...] Based on IBW 80.9kg Estimated needs: Calories: 9766-8193 (25-30kcal/kg) Protein: 200+ grams (2.5 g/kg) - [...] up while inpatient Carlo Jackson RD Pager #:[phone] Collette Dye MD - 02/09/2022 9:03 AM [...] was initially admitted to MICU 01/23 at [facility] after he was found down following [...] diff screen (02/01): Positive Abscess/Wound Aspirate Culture [[id number]] (Abnormal) Collected: 02/08/221612 Lab Status: Preliminary result Specimen: Deep Wound from Thigh, Left Updated: 02/08/221717 Gram Stain --??Abnormal?? Many Neutrophils seen Moderate Gram Negative Rods seen ??Abnormal?? Abscess/Wound Aspirate Culture [[id number]] (Abnormal) Collected: 02/08/221612 Lab Status: Preliminary result [...] any questions regarding this consult, please page [phone] if you have any further questions. [X] Consult service to continue to follow [] Consult service to sign off Collette Dye MD, PGY2 Acute Care Surgery Team pager [phone] Bam Bahena - 02/09/2022 7:35 AM EDT [...] to the MICU 01/23??s/p [place] arrest at [facility] in the setting of being down [...] central venous catheters, as above. ASSESSMENT/PLAN: Alix Melita CrooksOchoa??is a 31 y.o.??man??with acute renal [...] Neurology - Pain control: ?? acetaminophen, D. LAYER OFF ?? PRN Dilaudid for breakthrough pain ?? [...] Plastic Surgery Inpatient Progress Note (Team Pager #[phone]) Date of surgery: N/A CC/Procedure(s): N/A Surgeon: [...] Reynoso MD Plastic Surgery Inpatient Team Pager #[phone] Jesús Mcgowan PA - 02/09/2022 6:06 AM [...] of Left superior gluteal artery via R MONTESSORI LEAD TEACHER access. Last Value 24 Hour Range Temperature 37.5 ??C (99.5 ??F) Temp: [36.2 ??C (97.2 ??F)-37.9 ??C (100.2 ??F)] Heart Rate (!) 115 Heart Rate: [85-138] Blood Pressure 142/75 BP: -- Respiratory Rate 26 Resp: [12-29] SpO2 100 % SpO2: [96 %-100 %] Physical Exam GEN No distress, A&O CARDS Acyanotic, Right MONTESSORI LEAD TEACHER without hematoma/induration, right DP 2+ LUNGS Non-labored [...] Value Ref Range T&S only valid at [facility] Assessment: 31 y.o. male with history [...] and left superior gluteal artery via R MONTESSORI LEAD TEACHER access. Last transfusion of 1 unit PRBC [...] updated and patient is medically appropriate. Pager: [phone] Amberly Hardy OT 02/08/2022 Occupational Therapy Rehabilitation [...] g 17 g Oral BID Rogers Solano, INDUSTRIAL PAINTER ??? heparin (porcine) (5,000 units/1 mL) subcutaneous injection 7,500 Units 7,500 Units [id number] AMERICA Rogers Solano, INDUSTRIAL PAINTER ??? alteplase (Cathflo) injection 1-4 mg 1-4 mL INTRA-CATHETER Once in dialysis PRN Collette Rivas PA 2.4 mg at 02/07/22 0520 ??? heparin (porcine) (1,000 units/mL) injection 1,000-10,000 Units 1,000-10,000 Units [id number] PRN Angelina Reynoso MD ??? bicarbonate CRRT [...] 0.2 mg Intravenous Q2H PRN Rogers Solano, INDUSTRIAL PAINTER ??? HYDROmorphone (Dilaudid) (1 mg/mL) in sodium chloride 0.9% 50 mL LAYER OFF infusion Intravenous LAYER OFF Only Rogers Solano, INDUSTRIAL PAINTER 1 mL/hr at 02/07/22 1534 50 mg [...] Q1 Min PRN Danielle Ramirez MD ??? LAYER OFF hutton Intravenous Continuous PRN Danielle Ramirez MD ??? HYDROmorphone (mg) LAYER OFF shift total and Settings verification Intravenous 2 Times Daily- LAYER OFF Shift Total Danielle Ramirez MD ??? vancomycin [...] bolus injection (Anesthesia) Intravenous PRN Anthony Turner LIVESTOCK FARMWORKER 10 mg at 02/06/22 1420 ??? lactated ringers infusion Intravenous Continuous PRN Anthony Turner CRNA New Bag at 02/06/22 1239 ??? PHENYLephrine (Rustam-Synephrine) (80 mcg/mL) in sodium chloride 0.9% 250 mL infusion Intravenous Continuous PRN Anthony Turner CRNA 15 mL/hr at 02/06/22 1433 20 mcg/min at 02/06/22 1433 ??? HYDROmorphone (Dilaudid) (2 mg/mL) multi-dose injection solution Intravenous PRN Anthony Turner LIVESTOCK FARMWORKER 1 mg at 02/06/22 1439 Recent Results [...] 126 65 - 199 mg/dL Vidhya Peñaloza #[phone] Associated attestation - Cecilio Gee MD - [...] the MICU 01/23 s/p [place] arrest at [facility] in the setting ofbeing down for [...] control pain - pain control: acetaminophen, D. LAYER OFF - PRN Dilaudid for breakthrough pain - [...] Specialist in Neurologic Physical Therapy Inpatient/outpatient Rehab [facility] Parrish Betancourt MD - 02/08/2022 8:39 [...] was initially admitted to MICU 01/23 at [facility] after he was found down following [...] any questions regarding this consult, please page [phone] if you have any further questions. [X] Consult service to continue to follow [] Consult service to sign off Collette Dye MD, PGY2 Acute Care Surgery Team pager [phone] SURGICAL ATTENDING NOTE: Pt seen and examined [...] Vinod Prasad PA-C Interventional Radiology IR Provider #[phone] Bam Bahena - 02/08/2022 7:31 AM EDT [...] to the MICU 01/23??s/p [place] arrest at [facility] in the setting of being down [...] HD line rewired after TPA failed. Increased LAYER OFF then went down on it. 2 units [...] difficult to control pain - Acetaminophen, D. LAYER OFF - PRN Dilaudid for breakthrough pain - [...] mg/mL) in sodium chloride 0.9% 50 mL LAYER OFF infusion ??? heparin (porcine) (1,000 units/mL) injection [...] (Narcan) (0.4 mg/mL) injection 0.2 mg ??? LAYER OFF hutton ??? HYDROmorphone (mg) LAYER OFF shift total and Settings verification ??? vancomycin [...] at this time. He is using his LAYER OFF as demonstrated. Natalya Amadro RN - 02/07/2022 6:48 PM EDT OUTCOME EVALUATION NOTE: OUTCOME SUMMARY: Pt stated increased pain this am, and received Dilaudid 0.2 mg for BTP, and increase on LAYER OFF, statingpain 05/10 to the left hip. With the one IV dose of Dilaudid and increase pt stated better pain, andwas unable to verbalize a number, staring out into space or closing eyes during a conversation,. Pt's LAYER OFF was then decreased and during the decrease [...] mg/mL) in sodium chloride 0.9% 50 mL LAYER OFF infusion ??? heparin (porcine) (1,000 units/mL) injection [...] (Narcan) (0.4 mg/mL) injection 0.2 mg ??? LAYER OFF hutton ??? HYDROmorphone (mg) LAYER OFF shift total and Settings verification ??? vancomycin [...] was initially admitted to MICU 01/23 at [facility] after he was found down following [...] any questions regarding this consult, please page [phone] if you have any further questions. [X] Consult service to continue to follow [] Consult service to sign off Kaitlyn Rock MD, PGY2 Acute Care Surgery Team pager [phone] Garret Jeter, - 02/07/2022 10:10 AM EDT [...] bowel tones EXT Minimal oozing around R MONTESSORI LEAD TEACHER puncture site dressing, no hematoma. Distal pulses [...] any questions or concerns. Garret Jeter DO [facility] Interventional Radiology Jayme Armstrong MD - 02/07/2022 [...] the MICU 01/23 s/p [place] arrest at [facility] in the setting ofbeing down for [...] control pain - pain control: acetaminophen, D. LAYER OFF - PRN Dilaudid for breakthrough pain - [...] 10/10 through most of the night, dilaudid LAYER OFF continues with PRN pushes for break through [...] dressing change, manage bleeding L thigh fasciotomy [id number], medicated with Hydromorphone 1 mg by Jeanette [...] the MICU 01/23 s/p [place] arrest at [facility] in the setting ofbeing down for [...] control pain - pain control: acetaminophen, D. LAYER OFF ?? CV: Hypotension in the setting of [...] in my capacity as a critical care public information specialist. Jayme Armstrong MD Jeanette Escamilla APRN - [...] down-time, complaining of LUE pain. On-route to [facility] via EMS had a Vtach arrest. On arrival to OSH he was noted to have potassium of 7.8. He received multiple doses of sodium bicarb, calcium gluconate, and insulin/D10 and his potassium improved to 5.4 prior to transport. On arrival to [facility] K was again elevated at 7.6 with [...] Found to be COVID-positive. After arrival to [facility] pt was able to be weaned to minimal oxygenation support and CT chest was clear apart from partial collapse of LLL and dependent atelectasis. COVID therapies such as decadron were held due to preserved oxygenation. He did remain intubated through 01/26, not because of hypoxia, but to facilitate return OR trips and during a time of hemodynamic instability. ?? ALTHEA requiring FUNDRAISING OFFICER: Given his multisystem organ failure and significant [...] 01/30. He was transitioned to a hydromorphone LAYER OFF on 02/01. ?? C Difficile infection: Persistent [...] Neurology - Pain control: ?? acetaminophen, D. LAYER OFF ?? PRN Dilaudid for breakthrough pain ?? [...] of his gluteus. 1 square dressing of [place] was placed at this aspect. 3 square [...] and set appropriately. Frequent visual assessments Surveillance: [place] Critical Care Monitor Patient-specific fall prevention interventions [...] mg/mL) in sodium chloride 0.9% 50 mL LAYER OFF infusion ??? HYDROmorphone (Dilaudid) (1 mg/mL) injection syringe 1 mg ??? sevelamer carbonate (Renvela) tablet 1,600 mg ??? diphenhydrAMINE (Benadryl) (50 mg/mL) injection 25 mg ??? prochlorperazine (Compazine) (5 mg/mL) injection 5 mg ??? ondansetron (pf) (Zofran) (2 mg/mL) injection 4 mg ??? naloxone (Narcan) (0.4 mg/mL) injection 0.2 mg ??? LAYER OFF hutton ??? HYDROmorphone (mg) LAYER OFF shift total and Settings verification ??? vancomycin [...] EDT NEPHROLOGY PROGRESS NOTE Reason for consult: ALTHEA/FUNDRAISING OFFICER Baseline creatinine: ~0.7 (as of 04/2021) Interval [...] tissue necrosis. Dania Thomas MD Nephrology Pager: [phone] Summer Robertson RN - 02/05/2022 3:35 PM [...] or concerns. Lilibeth Medina, PT, DPT Pager: [phone] 02/05/22 Inpatient Rehabilitation Department Amberly Hardy OT [...] evaluation as able and when appropriate. Pager: [phone] Amberly Hardy OT 02/05/2022 Occupational Therapy Rehabilitation [...] bridge Communicated nutrition recs to Medicine pager #[phone] Visualized patient for overt cachectic appearance: no [...] d/t fluid status Charlotte Castañeda RD Pager: [phone] Dilcia Lopez MD - 02/05/2022 9:56 AM [...] the past 24 hour(s)) GC Gene Amp ([facility]/CGP/APD/NL) Urine Specimen: Urine Result Value Ref Range GC Gene Amp Negative Negative GC Source Urine Chlamydia Gene Amp ([facility]/CGP/APD/NL) Urine Specimen: Urine Result Value Ref Range [...] Value Ref Range T&S only valid at [facility] Prepare RBC Result Value Ref Range Dispensed? Yes Hemoglobin Result Value Ref Range Hemoglobin 7.0 (L) 13.7 - 16.5 g/dL Microbiology: Microbiology Results (Last 30 days) Procedure Component Value Units Date/Time GC Gene Amp ([facility]/CGP/APD/[facility]) Urine [[id number]] Collected: 02/04/221619 Lab Status: Final result Specimen: Urine Updated: 02/05/22641 GC Gene Amp Negative Comment: The only FDA approved specimen types for this assay are cervical, vaginal, urethral and urine. Non-FDA approved sources are eye, throat and rectal and have been internally validated. GC Source Urine Chlamydia Gene Amp ([facility]/P/APD/[facility]) Urine [[id number]] Collected: 02/04/221619 Lab Status: Final result Specimen: Urine Updated: 02/05/22641 Chlamydia Gene Amp Negative Comment: The only FDA approved specimen types for this assay are cervical, vaginal, urethral and urine. Non-FDA approved sources are eye, throat and rectal and have been internally validated. Chlamydia Source Urine C. Difficile Screen [[id number]] (Abnormal) Collected: 02/01/22 1355 Lab Status: Final [...] or approval by Infection Prevention. Blood culture [[id number]] Collected: 02/01/22 0635 Lab Status: Preliminary result Specimen: Blood Updated: 02/04/22 1502 Blood Culture No growth at 3 days. Blood culture [[id number]] Collected: 02/01/22 0625 Lab Status: Preliminary result Specimen: Blood Pediatric Updated: 02/04/22 1502 Blood Culture No growth at 3 days. Blood culture [[id number]] Collected: 01/28/22 0345 Lab Status: Final result Specimen: Blood Updated: 02/02/22 0701 Blood Culture No growth at 5 days. MRSA PCR [[id number]] Collected: 01/24/22 1310 Lab Status: Final result Specimen: Nasopharyngeal Swab Updated: 01/25/22 2224 MRSA Result Negative MRSA Interp -- Negative for methicillin-resistant Staphylococcus aureus (MRSA) This test was performed using the GeneKasennapert?? Dx System and the Xpert MRSA Assay. The MRSA target DNA was not detected. The sample processing control and probe check were valid. The performance of this test was determined by the [facility] Molecular Pathology Laboratory. It has been cleared by the U.S. Food and Drug Administration for clinical use. Comment: [VERIFIED DATE]01.25.22 Verified By:Alfonso Soto (Electronic Signature) MRSA PCR [[id number]] Collected: 01/23/22 1247 Lab Status: Final result [...] of this test was determined by the [facility]. It has been cleared by the U.S. Food and Drug Administration for clinical use. Comment: [VERIFIED DATE]01.25.22 Verified By:Nora Shay (Electronic Signature) Lower Respiratory Culture Tracheal Aspirate [[id number]] (Abnormal) (Susceptibility) Collected: 01/23/22 1150 Lab Status: [...] Sensitive [1] Gentamicin is not appropriate for [facility]-therapy. [2] Oxacillin (methicillin) susceptibility is a surrogate for the oral and parenteral cephalosporins, beta-lactam combination agents (amoxicillin-clavulanate, ampicillin-sulbactam and piperacillin-tazobactam) and carbapenem agents. It is NOT a surrogate for penicillin, ampicillin or piperacillin susceptibility. Linear View Blood culture [[id number]] Collected: 01/23/22 0600 Lab Status: Final result Specimen: Blood Updated: 01/28/22 0701 Blood Culture No growth at 5 days. Blood culture [[id number]] Collected: 01/23/22 0126 Lab Status: Final result Specimen: Blood Updated: 01/28/22 0701 Blood Culture No growth at 5 days. COVID-19 PCR [[id number]] (Abnormal) Collected: 01/23/22 0044 Lab Status: Final [...] diagnosis of COVID-19 is performed using the Hipvan SARS-CoV-2 Assay as authorized by the FDA Emergency Use Authorization (EUA). This EUA assay is intended for In-vitro Diagnostic (IVD) use with respiratory specimens such as nasopharyngeal swabs collected from individuals during the acute phase of infection. This assay is performed based on the instructions for use provided by [employer] and additional guidance provided by CDC and FDA. Testing is performed in the [facility] within the Department of Pathology and Laboratory Medicine at [facility], certified under the Clinical [...] fact sheets at the following FDA website: https://www.fda.gov/medical-devices/gftbdftkkeu-jyzecpt-8953-kytjl-96-qfnvxkpzk- qal-bodhbbcsrpycqa-qgajayd-devices/uzgtb-htbzlvsxgzm-hmft SARS-Cov-2 RNA Source Trach Asp MRSA PCR [[id number]] Collected: 01/23/22 0044 Lab Status: Final result [...] of this test was determined by the [facility] Molecular Pathology Laboratory. It has been cleared [...] who have questions please contact the health career technical education teacher that requested your imaging first. Head wo Contrast (Generic) (Exam End: 01/23/2022 3:58 AM) Impression Globi pallidi infarcts. Mild cerebral edema. Thank you for letting us participate in the care of this patient. If you are a health care provider and have any questions regarding this report, please contact the number below. For patients who have questions please contact the health career technical education teacher that requested your imaging first. Abdomen 1 [...] who have questions please contact the health career technical education teacher that requested your imaging first. Lower Extremity [...] who have questions please contact the health career technical education teacher that requested your imaging first. Chest wo [...] who have questions please contact the health career technical education teacher that requested your imaging first. Upper Extremity [...] who have questions please contact the health career technical education teacher that requested your imaging first. Forearm Left [...] who have questions please contact the health career technical education teacher that requested your imaging first. Chest One [...] who have questions please contact the health career technical education teacher that requested your imaging first. Femur 2 views Left (Generic) (Exam End: 01/23/2022 2:04 PM) Impression No significant osseous finding. Thank you for letting us participate in the care of this patient. If you are a health care provider and have any questions regarding this report, please contact the number below. For patients who have questions please contact the health career technical education teacher that requested your imaging first. Electronically signed by: Lisandro Pruett MD, [facility] ([phone]), at 01/23/2022 2:10 PM XR Tibia Fibula Left (Generic) (Exam End: 01/23/2022 2:04 PM) Impression No bony abnormality seen. Thank you for letting us participate in the care of this patient. If you are a health care provider and have any questions regarding this report, please contact the number below. For patients who have questions please contact the health career technical education teacher that requested your imaging first. Chest One [...] who have questions please contact the health career technical education teacher that requested your imaging first. Electronically signed by: Lisandro Pruett MD, [facility] ([phone]), at 01/23/2022 5:01 PM MRI Brain wo [...] who have questions please contact the health career technical education teacher that requested your imaging first. Angiogram [place] [facility] [place] (Exam End: 01/24/2022 11:32 PM) Impression Normal appearance of the large and medium size arteries of the head and neck Thank you for letting us participate in the care of this patient. If you are a health care provider and have any questions regarding this report, please contact the number below. For patients who have questions please contact the health career technical education teacher that requested your imaging first. Angiogram Carotids [...] who have questions please contact the health career technical education teacher that requested your imaging first. Chest Abdomen [...] who have questions please contact the health career technical education teacher that requested your imaging first. Assessment: Alix [...] to this Complex pain needs - adjusted LAYER OFF yesterday with improvement Leukocytosis now down-trending with [...] and restarted precautions ?? # ALTHEA requiring FUNDRAISING OFFICER; now on iHD # Hyponatremia (volume overloaded, not eating) # Hyperkalemia - Nephrology following - 1.5L fluid restriction in place ?? # Pain Control, c/b Chronic Opiate Abuse - adjusted LAYER OFF - consider subboxone/BIT once more stable ad [...] mg/mL) in sodium chloride 0.9% 50 mL LAYER OFF infusion ??? HYDROmorphone (Dilaudid) (1 mg/mL) injection syringe 1 mg ??? sevelamer carbonate (Renvela) tablet 1,600 mg ??? diphenhydrAMINE (Benadryl) (50 mg/mL) injection 25 mg ??? prochlorperazine (Compazine) (5 mg/mL) injection 5 mg ??? ondansetron (pf) (Zofran) (2 mg/mL) injection 4 mg ??? naloxone (Narcan) (0.4 mg/mL) injection 0.2 mg ??? LAYER OFF hutton ??? HYDROmorphone (mg) LAYER OFF shift total and Settings verification ??? vancomycin [...] mg/mL) in sodium chloride 0.9% 50 mL LAYER OFF infusion ??? HYDROmorphone (Dilaudid) (1 mg/mL) injection syringe 1 mg ??? sevelamer carbonate (Renvela) tablet 1,600 mg ??? diphenhydrAMINE (Benadryl) (50 mg/mL) injection 25 mg ??? prochlorperazine (Compazine) (5 mg/mL) injection 5 mg ??? ondansetron (pf) (Zofran) (2 mg/mL) injection 4 mg ??? naloxone (Narcan) (0.4 mg/mL) injection 0.2 mg ??? LAYER OFF hutton ??? HYDROmorphone (mg) LAYER OFF shift total and Settings verification ??? vancomycin [...] in the left wrist, less somnolent Changed LAYER OFF 4 hour limit and increased dose from [...] Component Value Units Date/Time C. Difficile Screen [[id number]] (Abnormal) Collected: 02/01/22 1355 Lab Status: Final [...] or approval by Infection Prevention. Blood culture [[id number]] Collected: 02/01/22 0635 Lab Status: Preliminary result Specimen: Blood Updated: 02/04/22 1502 Blood Culture No growth at 3 days. Blood culture [[id number]] Collected: 02/01/22 0625 Lab Status: Preliminary result Specimen: Blood Pediatric Updated: 02/04/22 1502 Blood Culture No growth at 3 days. Blood culture [[id number]] Collected: 01/28/22 0345 Lab Status: Final result Specimen: Blood Updated: 02/02/22 0701 Blood Culture No growth at 5 days. MRSA PCR [[id number]] Collected: 01/24/22 1310 Lab Status: Final result Specimen: Nasopharyngeal Swab Updated: 01/25/22 2224 MRSA Result Negative MRSA Interp -- Negative for methicillin-resistant Staphylococcus aureus (MRSA) This test was performed using the GeneKasennapert?? Dx System and the Xpert MRSA Assay. The MRSA target DNA was not detected. The sample processing control and probe check were valid. The performance of this test was determined by the [facility]. It has been cleared by the U.S. Food and Drug Administration for clinical use. Comment: [VERIFIED DATE]01.25.22 Verified By:Alfonso Soto (Electronic Signature) MRSA PCR [[id number]] Collected: 01/23/22 1247 Lab Status: Final result Specimen: Nasopharyngeal Swab Updated: 01/25/22 1023 MRSA Result Negative MRSA Interp -- Negative for methicillin-resistant Staphylococcus aureus (MRSA) This test was performed using the [employer]?? Dx System and the Xpert MRSA Assay. The MRSA target DNA was not detected. The sample processing control and probe check were valid. The performance of this test was determined by the [facility]. It has been cleared by the U.S. Food and Drug Administration for clinical use. Comment: [VERIFIED DATE]01.25.22 Verified By:Nora Shay (Electronic Signature) Lower Respiratory Culture Tracheal Aspirate [[id number]] (Abnormal) (Susceptibility) Collected: 01/23/22 1150 Lab Status: [...] Sensitive [1] Gentamicin is not appropriate for [facility]-therapy. [2] Oxacillin (methicillin) susceptibility is a surrogate for the oral and parenteral cephalosporins, beta-lactam combination agents (amoxicillin-clavulanate, ampicillin-sulbactam and piperacillin-tazobactam) and carbapenem agents. It is NOT a surrogate for penicillin, ampicillin or piperacillin susceptibility. Linear View Blood culture [[id number]] Collected: 01/23/22 0600 Lab Status: Final result Specimen: Blood Updated: 01/28/22 0701 Blood Culture No growth at 5 days. Blood culture [[id number]] Collected: 01/23/22 0126 Lab Status: Final result Specimen: Blood Updated: 01/28/22 0701 Blood Culture No growth at 5 days. COVID-19 PCR [[id number]] (Abnormal) Collected: 01/23/22 0044 Lab Status: Final [...] diagnosis of COVID-19 is performed using the Hipvan SARS-CoV-2 Assay as authorized by the FDA Emergency Use Authorization (EUA). This EUA assay is intended for In-vitro Diagnostic (IVD) use with respiratory specimens such as nasopharyngeal swabs collected from individuals during the acute phase of infection. This assay is performed based on the instructions for use provided by [employer] and additional guidance provided by [facility] and FDA. Testing is performed in the Clinical [employer] [facility] within the Department of Pathology and Laboratory Medicine at [facility], certified under the Clinical [...] fact sheets at the following FDA website: https://www.fda.gov/medical-devices/odiuivvgjlr-opwvyug-8236-bomre-77-wojhwqqhm- wbh-zwayvuaurrntqm-nyidkio-devices/kvzyk-ezyeiskxsqu-yevc SARS-Cov-2 RNA Source Trach Asp MRSA PCR [[id number]] Collected: 01/23/22 0044 Lab Status: Final result [...] of this test was determined by the [facility]. It has been cleared [...] who have questions please contact the health career technical education teacher that requested your imaging first. Head wo Contrast (Generic) (Exam End: 01/23/2022 3:58 AM) Impression Globi pallidi infarcts. Mild cerebral edema. Thank you for letting us participate in the care of this patient. If you are a health care provider and have any questions regarding this report, please contact the number below. For patients who have questions please contact the health career technical education teacher that requested your imaging first. Abdomen 1 [...] who have questions please contact the health career technical education teacher that requested your imaging first. Lower Extremity [...] who have questions please contact the health career technical education teacher that requested your imaging first. Chest wo [...] who have questions please contact the health career technical education teacher that requested your imaging first. Upper Extremity [...] who have questions please contact the health career technical education teacher that requested your imaging first. Forearm Left [...] who have questions please contact the health career technical education teacher that requested your imaging first. Chest One [...] who have questions please contact the health career technical education teacher that requested your imaging first. Femur 2 views Left (Generic) (Exam End: 01/23/2022 2:04 PM) Impression No significant osseous finding. Thank you for letting us participate in the care of this patient. If you are a health care provider and have any questions regarding this report, please contact the number below. For patients who have questions please contact the health career technical education teacher that requested your imaging first. Electronically signed by: Lisandro Pruett MD, [facility] ([phone]), at 01/23/2022 2:10 PM XR Tibia Fibula Left (Generic) (Exam End: 01/23/2022 2:04 PM) Impression No bony abnormality seen. Thank you for letting us participate in the care of this patient. If you are a health care provider and have any questions regarding this report, please contact the number below. For patients who have questions please contact the health career technical education teacher that requested your imaging first. Chest One [...] who have questions please contact the health career technical education teacher that requested your imaging first. Electronically signed by: Lisandro Pruett MD, [facility] ([phone]), at 01/23/2022 5:01 PM MRI Brain wo [...] who have questions please contact the health career technical education teacher that requested your imaging first. Angiogram [place] [facility] [place] (Exam End: 01/24/2022 11:32 PM) Impression Normal appearance of the large and medium size arteries of the head and neck Thank you for letting us participate in the care of this patient. If you are a health care provider and have any questions regarding this report, please contact the number below. For patients who have questions please contact the health career technical education teacher that requested your imaging first. Angiogram Carotids [...] who have questions please contact the health career technical education teacher that requested your imaging first. Chest Abdomen [...] who have questions please contact the health career technical education teacher that requested your imaging first. Assessment: Alix [...] to this Complex pain needs - adjusted LAYER OFF Leukocytosis now down-trending with treatment of c dif. Also requiring prophylaxis abx with cefazolin until fasciotomy closures. Duplexes were ordered for concern for DVT however these were not able to be completed due to Vac continue LAYER OFF Plan: #Rhabdomyolysis??d/t LUE??+ LLE??Compartment Syndrome??with hyperkalemic cardiac [...] and restarted precautions ?? # ALTHEA requiring FUNDRAISING OFFICER; now on iHD # Hyponatremia (volume overloaded, not eating) # Hyperkalemia - Nephrology following - 1.5L fluid restriction in place ?? # Pain Control, c/b Chronic Opiate Abuse - adjusted LAYER OFF -on patient controlled anesthesia ? 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 Dania Thomas MD Nephrology Pager: [phone] Phoenix Dhillon RN - 02/04/2022 6:48 AM EDT OUTCOME EVALUATION NOTE: OUTCOME SUMMARY: Patient remains alert and oriented. He has been maxing out his LAYER OFF pumps limit and increased number of attempts [...] 250cc SS output over last 24 hours. LAYER OFF for pain control. Phos 7.5, Na 120, Cr 5.55, K 5.7 ALTHEA requiring FUNDRAISING OFFICER, now iHD this AM Patient denies chest [...] mg/mL) in sodium chloride 0.9% 50 mL LAYER OFF infusion ??? diphenhydrAMINE (Benadryl) (50 mg/mL) injection 25 mg ??? prochlorperazine (Compazine) (5 mg/mL) injection 5 mg ??? ondansetron (pf) (Zofran) (2 mg/mL) injection 4 mg ??? naloxone (Narcan) (0.4 mg/mL) injection 0.2 mg ??? LAYER OFF hutton ??? HYDROmorphone (mg) LAYER OFF shift total and Settings verification ??? vancomycin [...] Component Value Units Date/Time C. Difficile Screen [[id number]] (Abnormal) Collected: 02/01/22 1355 Lab Status: Final [...] or approval by Infection Prevention. Blood culture [[id number]] Collected: 02/01/22 0635 Lab Status: Preliminary result Specimen: Blood Updated: 02/03/22 1501 Blood Culture No growth at 2 days. Blood culture [[id number]] Collected: 02/01/22 0625 Lab Status: Preliminary result Specimen: Blood Pediatric Updated: 02/03/22 1501 Blood Culture No growth at 2 days. Blood culture [[id number]] Collected: 01/28/22 0345 Lab Status: Final result Specimen: Blood Updated: 02/02/22 0701 Blood Culture No growth at 5 days. MRSA PCR [[id number]] Collected: 01/24/22 1310 Lab Status: Final result Specimen: Nasopharyngeal Swab Updated: 01/25/224 MRSA Result Negative MRSA Interp -- Negative for methicillin-resistant Staphylococcus aureus (MRSA) This test was performed using the GeneXpert?? Dx System and the Xpert MRSA Assay. The MRSA target DNA was not detected. The sample processing control and probe check were valid. The performance of this test was determined by the [facility]. It has been cleared by the U.S. Food and Drug Administration for clinical use. Comment: [VERIFIED DATE]01.25.22 Verified By:Alfonso Soto (Electronic Signature) MRSA PCR [[id number]] Collected: 01/23/22 1247 Lab Status: Final result [...] of this test was determined by the [facility]. It has been cleared by the U.S. Food and Drug Administration for clinical use. Comment: [VERIFIED DATE]01.25.22 Verified By:Nora Shay (Electronic Signature) Lower Respiratory Culture Tracheal Aspirate [[id number]] (Abnormal) (Susceptibility) Collected: 01/23/22 1150 Lab Status: [...] Sensitive [1] Gentamicin is not appropriate for [facility]-therapy. [2] Oxacillin (methicillin) susceptibility is a surrogate for the oral and parenteral cephalosporins, beta-lactam combination agents (amoxicillin-clavulanate, ampicillin-sulbactam and piperacillin-tazobactam) and carbapenem agents. It is NOT a surrogate for penicillin, ampicillin or piperacillin susceptibility. Linear View Blood culture [[id number]] Collected: 01/23/22 0600 Lab Status: Final result Specimen: Blood Updated: 01/28/22 0701 Blood Culture No growth at 5 days. Blood culture [[id number]] Collected: 01/23/22 0126 Lab Status: Final result Specimen: Blood Updated: 01/28/22 0701 Blood Culture No growth at 5 days. COVID-19 PCR [[id number]] (Abnormal) Collected: 01/23/22 0044 Lab Status: Final [...] diagnosis of COVID-19 is performed using the Hipvan SARS-CoV-2 Assay as authorized by the FDA Emergency Use Authorization (EUA). This EUA assay is intended for In-vitro Diagnostic (IVD) use with respiratory specimens such as nasopharyngeal swabs collected from individuals during the acute phase of infection. This assay is performed based on the instructions for use provided by [employer] and additional guidance provided by CDC and FDA. Testing is performed in the [facility] within the Department of Pathology and Laboratory Medicine at [facility], certified under the Clinical [...] fact sheets at the following FDA website: https://www.fda.gov/medical-devices/nqlpnmapiqh-xgfdmqr-3091-kmdgc-71-awfiwstlz- mup-nvwhmxpjonegya-cwxytts-devices/vadne-atzzgrifuvo-usoy SARS-Cov-2 RNA Source Trach Asp MRSA PCR [[id number]] Collected: 01/23/22 0044 Lab Status: Final result [...] of this test was determined by the [facility]. It has been cleared [...] who have questions please contact the health career technical education teacher that requested your imaging first. Head wo Contrast (Generic) (Exam End: 01/23/2022 3:58 AM) Impression Globi pallidi infarcts. Mild cerebral edema. Thank you for letting us participate in the care of this patient. If you are a health care provider and have any questions regarding this report, please contact the number below. For patients who have questions please contact the health career technical education teacher that requested your imaging first. Abdomen 1 [...] who have questions please contact the health career technical education teacher that requested your imaging first. Lower Extremity [...] who have questions please contact the health career technical education teacher that requested your imaging first. Chest wo [...] who have questions please contact the health career technical education teacher that requested your imaging first. Upper Extremity [...] who have questions please contact the health career technical education teacher that requested your imaging first. Forearm Left [...] who have questions please contact the health career technical education teacher that requested your imaging first. Chest One [...] who have questions please contact the health career technical education teacher that requested your imaging first. Femur 2 views Left (Generic) (Exam End: 01/23/2022 2:04 PM) Impression No significant osseous finding. Thank you for letting us participate in the care of this patient. If you are a health care provider and have any questions regarding this report, please contact the number below. For patients who have questions please contact the health career technical education teacher that requested your imaging first. Electronically signed by: Lisandro Pruett MD, [facility] ([phone]), at 01/23/2022 2:10 PM XR Tibia Fibula Left (Generic) (Exam End: 01/23/2022 2:04 PM) Impression No bony abnormality seen. Thank you for letting us participate in the care of this patient. If you are a health care provider and have any questions regarding this report, please contact the number below. For patients who have questions please contact the health career technical education teacher that requested your imaging first. Chest One [...] who have questions please contact the health career technical education teacher that requested your imaging first. Electronically signed by: Lisandro Pruett MD, [facility] ([phone]), at 01/23/2022 5:01 PM MRI Brain wo [...] who have questions please contact the health career technical education teacher that requested your imaging first. Angiogram [place] [facility] [place] (Exam End: 01/24/2022 11:32 PM) Impression Normal appearance of the large and medium size arteries of the head and neck Thank you for letting us participate in the care of this patient. If you are a health care provider and have any questions regarding this report, please contact the number below. For patients who have questions please contact the health career technical education teacher that requested your imaging first. Angiogram Carotids [...] who have questions please contact the health career technical education teacher that requested your imaging first. Chest Abdomen [...] who have questions please contact the health career technical education teacher that requested your imaging first. Assessment: Alix [...] to be completed due to Vac continue LAYER OFF Plan: #Rhabdomyolysis??d/t LUE??+ LLE??Compartment Syndrome??with hyperkalemic cardiac [...] longer requires precautions ?? # ALTHEA requiring FUNDRAISING OFFICER; now on iHD # Hyponatremia (volume overloaded, [...] EDT NEPHROLOGY PROGRESS NOTE Reason for consult: ALTHEA/FUNDRAISING OFFICER Baseline creatinine: ~0.7 (as of 04/2021) Interval [...] with meals. Dania Thomas MD Nephrology Pager: [phone] Amberly Hardy OT - 02/03/2022 1:09 PM EDT Occupational Therapy Note Document Type: contact Total Minutes, Occupational Therapy: 0 Reason: Patient with low Hgb, 5.6. Defer OT. Will follow up as able and when appropriate. Pager: [phone] Amberly Hardy OT 02/03/2022 Occupational Therapy Rehabilitation [...] Communicated nutrition recs to provider Medicine pager #[phone]. Active Orders Diet NPO diet (Give Meds) [...] 01/28/2022 TRIG 359 01/26/2022 CRP <3.0 04/26/2021 [id number] 535 02/03/2022 SFOLATE 3.9 (L) 02/03/2022 IRON [...] encounter: 116.9 kg (257 lb 11.5 oz). [facility] Body Weight: 81 kg Usual Body Weight: [...] sedation and extubated. 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 TF frequently held for OR, have not advanced past trickle TF. TF d/c today, no access at this time. 01/25: Patient intubated and sedated. Pt to OR today for wound vacs. 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 ALTHEA requiring FUNDRAISING OFFICER, now iHD Patient denies chest pain, shortness [...] mg/mL) in sodium chloride 0.9% 50 mL LAYER OFF infusion ??? diphenhydrAMINE (Benadryl) (50 mg/mL) injection 25 mg ??? prochlorperazine (Compazine) (5 mg/mL) injection 5 mg ??? ondansetron (pf) (Zofran) (2 mg/mL) injection 4 mg ??? naloxone (Narcan) (0.4 mg/mL) injection 0.2 mg ??? LAYER OFF hutton ??? HYDROmorphone (mg) LAYER OFF shift total and Settings verification ??? vancomycin [...] mg/mL) in sodium chloride 0.9% 50 mL LAYER OFF infusion ??? diphenhydrAMINE (Benadryl) (50 mg/mL) injection 25 mg ??? prochlorperazine (Compazine) (5 mg/mL) injection 5 mg ??? ondansetron (pf) (Zofran) (2 mg/mL) injection 4 mg ??? naloxone (Narcan) (0.4 mg/mL) injection 0.2 mg ??? LAYER OFF hutton ??? HYDROmorphone (mg) LAYER OFF shift total and Settings verification ??? fentaNYL [...] EDT NEPHROLOGY PROGRESS NOTE Reason for consult: ALTHEA/FUNDRAISING OFFICER Baseline creatinine: ~0.7 (as of 04/2021) Interval [...] with meals. Dania Thomas MD Nephrology Pager: [phone] Luzmaria Saavedra RN - 02/02/2022 10:24 AM EDT C. difficile Infection (CDI) Consult Note Reason for Consult: Patient tested positive for C. difficile. Pertinent labs: PCR positive on 02/01/2022 Section of Infectious Disease Treatment Recommendations: For all inpatient cases of C. difficile [facility] Section of Infectious Disease recommends 125 mg of oral vancomycin QID for at least 14 days (10days beyond symptom resolution), even in cases of otym-oi-elyadnkv disease. For cases of severe C. difficile infection, please call an Infectious Disease consult and consider adding intravenous metronidazole in addition to oral vancomycin. If the patient is on broad- spectrum antibiotics for another indication, consider continuing oral vancomycin for 7 days after the other antibiotics are stopped. For questions regarding treatment please contact the Infectious Disease fellow substation manager at pager [phone]. Infection Prevention Recommendations: ? ? Isolation Recommendations- [...] stay is anticipated, consult Infection Prevention (Pager [phone]) to discuss the process for discontinuing S&W [...] a previously positive test. Applicable policies, guidelines: (75790) C. difficile Testing Policy (v.3) Soap & Water Contact Precautions and C. difficile Procedure Standard and Expanded Precautions Policy Precautions for Specific Diseases and Conditions - Job Aid For questions regarding treatment, please contact the Infectious Disease fellow substation manager at pager [phone]. For all other questions regarding C. difficile, please contact Infection Prevention at [phone] or pager [phone]. Thank you. Evangelina Flynn MD - 02/02/2022 10:23 AM EDT MICU STAFF PROGRESS NOTE Critical Care Medicine Author: Evangelina Flynn MD Patient seen and examined on critical care rounds and discussed with house staff. Interval Events: Diagnosed with C diff, started on po vanco Anemia slightly worse yesterday, PRBC tx, suspected from oozing HD session ongoing this morning Pain better controlled on LAYER OFF Per dad slept well last night, more [...] Ventilator: NA on RA Current Drips: Dilaudid LAYER OFF Labs/studies reviewed, notable for: WBC 33, downtrending [...] with leukocytosis now on treatment, pneumonia, and [id number] infection (known prior to admission.) Fortunately he is cognitively intact. Active management needs include ongoing pain control which is currently better on dilaudid LAYER OFF, need for long-term management of substance use [...] DVTs ordered yesterday and pending NEURO: dilaudid LAYER OFF for acute pain currently; long-term suboxone may [...] for Hgb 6.4 yesterday, likely ABLA Started LAYER OFF for pain control. Patient denies chest pain, [...] mg/mL) in sodium chloride 0.9% 50 mL LAYER OFF infusion ??? diphenhydrAMINE (Benadryl) (50 mg/mL) injection 25 mg ??? prochlorperazine (Compazine) (5 mg/mL) injection 5 mg ??? ondansetron (pf) (Zofran) (2 mg/mL) injection 4 mg ??? naloxone (Narcan) (0.4 mg/mL) injection 0.2 mg ??? LAYER OFF hutton ??? HYDROmorphone (mg) LAYER OFF shift total and Settings verification ??? fentaNYL [...] (1,000 units/mL) injection 1,000-10,000 Units 1,000-10,000 Units [id number] PRN Dimas Hernandez MD 2,400 Units at [...] mL) subcutaneous injection 5,000 Units 5,000 Units [id number] Dimas Santos MD 5,000 Units at 02/01/22 [...] Sanz MD - 02/01/2022 9:[address] [facility]U STAFF PROGRESS NOTE SECTION OF PULMONARY [...] Section of Pulmonary & Critical Care Pager: [phone] Armando, Doc Martinez MD - 02/01/2022 6:45 [...] (1,000 units/mL) injection 1,000-10,000 Units 1,000-10,000 Units LvziykwlmhlyhJ9E PRN Dimas Hernandez MD ??? bicarbonate CRRT [...] tablet 1,000 mg 1,000 mg Oral Q8H [facility] Dimas Hernandez MD 1,000 mg at 01/31/22 [...] mL) subcutaneous injection 5,000 Units 5,000 Units [id number] Dimas Santos MD 5,000 Units at 01/31/22 [...] POC Glucose 108 65 - 199 mg/dL Vdihya Peñaloza #[phone] Associated attestation - Jareth Nino [...] We will plan for further shift therapy FUNDRAISING OFFICER overnight. Anticipate trial of intermittent dialysis TuesdayFebruary 02 assuming intake and vital signs remain acceptable. Beck Sanz MD - 01/31/2022 8:[address] [facility]GRESS NOTE SECTION OF PULMONARY [...] Section of Pulmonary & Critical Care Pager: [phone] Dimas Hernandez MD - 01/31/2022 6:25 AM [...] seen and examined. - Patient transitioned to [facility]. - Chemistries are stable for now. [...] (1,000 units/mL) injection 1,000-10,000 Units 1,000-10,000 Units [id number] PRN Vidhya Peñaloza MD ??? bicarbonate CRRT [...] mg 100 mg Oral Daily Agnieszka López INDUSTRIAL PAINTER 100 mg at ??? ampicillin-sulbactam (Unasyn) 1.5 g vial attach to sodium chloride 0.9% 50 mL Mini-Bag Plus 1.5 g Intravenous Q8H Agnieszka López APRN Stopped at 01/30/22928 ??? acetaminophen (Tylenol) tablet 1,000 mg 1,000 mg Oral Q8H [place] Cristina Hillman, INDUSTRIAL PAINTER 1,000 mg at 01/30/22 06 ??? polyethylene glycoL (Miralax) packet 17 g 17 g Oral Daily Cristina Hillman, INDUSTRIAL PAINTER 17 g at 01/29/2257 ??? lidocaine (Lidoderm) 5% patch 3 patch 3 patch Transdermal Q24H Sun Hayden PA 3 patch at 01/29/222211 And ??? lidocaine (Lidoderm) topical patch REMOVAL 1 patch Transdermal Q24H Sun Hayden PA ??? pantoprazole (Protonix) injection 40 mg 40 mg Intravenous Daily Cristina Hillman B, INDUSTRIAL PAINTER 40 mg at01/30/22916 ??? docusate sodium (Colace) (10 mg/mL) oral liquid 100 mg 100 mg Oral BID Cristina Hillman B, INDUSTRIAL PAINTER 100 mg at 01/29/222130 And ??? sennosides (Senokot) (1.76 mg/mL) oral liquid 17.6 mg 17.6 mg Oral BID Cristina Hillman B, INDUSTRIAL PAINTER 17.6 mg at 01/29/222130 ??? naloxone (Narcan) [...] 400 Units/hr Intravenous Continuous Rafy Gemma B, INDUSTRIAL PAINTER 8 mL/hr at 01/29/222130 400 Units/hr at 01/29/222130 ??? glucose (Glutose) 40% oral geL 15-30 g of glucose Buccal Q30 Min PRN Pentland, Gemma B, INDUSTRIAL PAINTER Or ??? dextrose 10% infusion 250 mL Intravenous Q30 Min PRN Pentcaitlin, Gemma B, INDUSTRIAL PAINTER Stopped at Or ??? glucagon (Glucagen) (1 mg/mL) injection solution 1 mg 1 mg Intramuscular Q30 Min PRN Pentcaitlin, Gemma B, INDUSTRIAL PAINTER ??? heparin (porcine) (5,000 units/1 mL) subcutaneous injection 5,000 Units 5,000 Units [id number] [facility] Pentland, Gemma B, INDUSTRIAL PAINTER 5,000 Units at 01/30/22 0611 Recent Results [...] QTC Calculated (Bezet) 418 ms Calculated P [place] 13 degrees Calculated R [place] 31 degrees Calculated T [place] -8 degrees INTERPRETATION Sinus tachycardia Nonspecific T [...] 9 5 - 15 mmol/L Vidhya Peñaloza #[phone] Associated attestation - Jareth Nino MD - 01/30/2022 4:29 PM EDT I discussed patient with the fellow and observed from the doorway in the setting of COVID-19 isolation. 31-year-old male with an uric ALTHEA in the setting of rhabdomyolysis. We will trial prolonged intermittent CRRT over the weekend. [place] for success of this will be tapering fluid intake target 2 to 3 L. If he is able to tolerate this and we are able to manage ongoing metabolic derangements could consider transition to intermittent dialysis by next week should patient remain anuric Beck Sanz MD - 01/30/2022 8:[address] [facility] PROGRESS NOTE SECTION OF PULMONARY [...] Section of Pulmonary & Critical Care Pager: [phone] Armando, Doc Martinez MD - 01/30/2022 6:48 [...] Garcia), I&D w/ partial closure 01/29/22 (Dr. Valdovinso) ??? Transaminitis ??? Aspiration pneumonia ??? Rhabdomyolysis [...] 2.7) performed by Sigifredo Garcia MD at [facility] OR ? ? PRO DEBRIDEMENT MUSCLE AND FASCIA 20 SQ CM/< Left 01/26/2022 DEBRIDEMENT SKIN, SUBCU, MUSCLE, UPPER EXTREMITY (WRVU 2.7) performed by Sigifredo Garcia MD at [facility] OR ??? PRO DECOMP FOREARM, 2 COMPART, W/O DEBRIDE Left 01/23/2022 FASCIOTOMY; FOREARM AND\OR WRIST, FLEXOR & EXTENS. COMP (WRVU 10.79) performed by Sigifredo Garcia MD at [facility] OR ??? PRO DECOMPRESS ANT/LAT+POST LEG CMPART Left 01/23/2022 FASCIOTOMY, LOWER LEG, ALL COMPARTMENTS (WRVU 7.82) performed by Sigifredo Garcia MD at [facility] OR ??? PRO INCIS OF HIP/THIGH FASCIA Left 01/23/2022 @FASCIOTOMY,THIGH OR HIP FOR COMPARTMENT SYNDROME (WRVU 12.89) performed by Sigifredo Garcia MD at [facility] OR ??? PRO OPEN TREAT MANDIBLE CONDYLE FX, COMPL 04/27/2013 OPEN TREATMENT, COMPLEX MANDIBLE FX., MULTI APPROACH, W/ FIXATION performed by Kishore Neil MD at [facility] OR ??? PRO REVISE MEDIAN N/CARPAL TUNNEL SURG Left 01/23/2022 MEDIAN NERVE DECOMPRESSION (CARPAL TUNNEL RELEASE) (WRVU 4.97) performed by Sigifredo Garcia MD at [facility] OR ??? PRO SEC CLSR SURG WOUND/DEHSN EXTENSIVE/COMPLICATED Left 01/26/2022 SECONDARY CLOSURE SURGICAL WOUND OR DEHISCENCE, EXTENSIVE OR COMPLICATED, UPPER EXTREMITY (WRVU 12.04) performed by Sigifredo Garcia MD at [facility] OR Social History: Patient lives in [place], [place] with his dad. Home Setup: [address] [facility], 2 level home, bedroom on 1st level, bathroom available on 1st level, has a tub shower downstairs. DME:none Baseline ADL/Mobility: Pt reports he was independent w/ aDL's and IADL's, had worked for a [employer]. He enjoys hunting and fishing. He reports he likes [employer] music (when asked) Precautions/Special Considerations: at risk [...] oriented to: person, thought he was at [facility] (reoriented to ), when asked the date [...] and measurable assessment of functional outcome. 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 All Active TF Orders: Peptamen Intense VHP [...] Other Sites: Wound vac Relevant medications: shift FUNDRAISING OFFICER, D10 at 100ml/hr, colace, marinol, folic acid, [...] encounter: 116.7 kg (257 lb 4.4 oz). [place] Body Weight: 81 kg Usual Body Weight: [...] sedation and extubated. 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 TF frequently held for OR, have not advanced past trickle TF. TF d/c today, no access at this time. 01/25: Patient intubated and sedated. Pt to OR today for wound vacs. Estimated needs: Calories: 7891-7845 (20-25 kcal/kg IBW) for the first 7-10 days in the ICU Protein: 122 grams (1.5 g/kg IBW) while on shift FUNDRAISING OFFICER Average tube feeding provision over past 3 [...] BUSTER J Parenteral Enteral Nutr. 2011; 36(3): 273-95) Nutrition to continue to follow up while inpatient Thank you, Charlotte Castañeda RD Pager #:[phone] Meghan Prabhakar, PT - 01/29/2022 10:35 AM [...] 2.7) performed by Sigifredo Garcia MD at [facility] OR ? ? PRO DEBRIDEMENT MUSCLE AND FASCIA 20 SQ CM/< Left 01/26/2022 DEBRIDEMENT SKIN, SUBCU, MUSCLE, UPPER EXTREMITY (WRVU 2.7) performed by Sigifredo Garcia MD at [facility] OR ??? PRO DECOMP FOREARM, 2 COMPART, W/O DEBRIDE Left 01/23/2022 FASCIOTOMY; FOREARM AND\OR WRIST, FLEXOR & EXTENS. COMP (WRVU 10.79) performed by Sigifredo Garcia MD at [facility] OR ??? PRO DECOMPRESS ANT/LAT+POST LEG CMPART Left 01/23/2022 FASCIOTOMY, LOWER LEG, ALL COMPARTMENTS (WRVU 7.82) performed by Sigifredo Garcia MD at [facility] OR ??? PRO INCIS OF HIP/THIGH FASCIA Left 01/23/2022 @FASCIOTOMY,THIGH OR HIP FOR COMPARTMENT SYNDROME (WRVU 12.89) performed by Sigifredo Garcia MD at [facility] OR ??? PRO OPEN TREAT MANDIBLE CONDYLE FX, COMPL 04/27/2013 OPEN TREATMENT, COMPLEX MANDIBLE FX., MULTI APPROACH, W/ FIXATION performed by Kishore Neil MD at [facility] OR ??? PRO REVISE MEDIAN N/CARPAL TUNNEL SURG Left 01/23/2022 MEDIAN NERVE DECOMPRESSION (CARPAL TUNNEL RELEASE) (WRVU 4.97) performed by Sigifredo Garcia MD at [facility] OR ??? PRO SEC CLSR SURG WOUND/DEHSN EXTENSIVE/COMPLICATED Left 01/26/2022 SECONDARY CLOSURE SURGICAL WOUND OR DEHISCENCE, EXTENSIVE OR COMPLICATED, UPPER EXTREMITY (WRVU 12.04) performed by Sigifredo Garcia MD at [facility] OR Social History: Home setup: Pt lives with his father in a two level home with a couple [place]. Pt's bedroom and bathroom are on the first floor. The bathroom has a tub shower. Baseline Mobility/Prior level of function: Independent with mobility, ADLs and IADLs, drives, used to work for a [employer] company but is not currently working. Enjoys [...] self, hospital (but thinks he is at [facility]), and general situation but not specific injuries. [...] in this evaluation. Time IN / OUT: 4018-7933 Total Minutes, Physical Therapy: 43 (eval). Meghan Prabhakar, PT DPT 01/29/2022 Pager: [phone] Physical Therapy Inpatient Rehabilitation Department Alcira Dwyer [...] kg/m?? I/O last 3 completed shifts: In: 89520.3 [P.O.:1070; I.V.:8680.3; Other:40; NG/GT:394; IV Piggyback:303] Out: [...] Boykin MD - 01/29/2022 8:[address] [facility] PROGRESS NOTE SECTION OF PULMONARY [...] Section of Pulmonary & Critical Care Pager: [phone] Armando, Doc Martinez MD - 01/29/2022 6:56 [...] as appropriate. Meghan Prabhakar PT DPT Pager #[phone] 01/28/2022 Physical Therapy Rehabilitation Department Dai Duarte OT - 01/28/2022 11:28 AM EDT Occupational Therapy: 01/28/22 1127 Evaluation & Treatment Document Type contact Total Minutes, Occupational Therapy 0 Comment, Session Not Performed OT orders received/chart reviewed. Patient scheduled for the OR today. RN requested therapy hold for today. OT will follow up tomorrow Dai Duarte OTR/L Pager [phone] Alcira Dwyer MD - 01/28/2022 9:09 AM [...] kg/m?? I/O last 3 completed shifts: In: 36957.9 [P.O.:1150; I.V.:88590.9; NG/GT:1213; IV Piggyback:394] Out: 03354 [Urine:160; Other:90085] CBC Lab Results Component Value Date WBC [...] filter holiday overnight see if he will cook pickled meat his urine output. We can decide tomorrow if he is a candidate for shift therapy. It is possible that he will improve enough that he could be managed with diuretics. We will continue to follow Backer, Beck Boykin MD - 01/28/2022 9:[address] [facility] PROGRESS NOTE SECTION OF PULMONARY [...] Section of Pulmonary & Critical Care Pager: [phone] Parrish Esqueda MD - 01/28/2022 5:26 AM [...] per 24 hour Intake 9192.61 ml Output 87458 ml Net -1170.39 ml Body mass index [...] RN - 01/27/2022 9:16 PM EDTSummary: tele [facility] Images from the original note were [...] 0620 01/24/22 0016 PHART 7.45 7.48* 7.48* [id number] 33* 29* 30* PO2ART 114* 68* 70* [id number] 22.4 21.1 22.0 Intake/Output Summary (Last 24 hours) at 01/28/2022 0703 Last data filed at 01/28/2022 0700 Gross per 24 hour Intake 9662.51 ml Output 89898 ml Net -1043.49 ml Output: Urine 70 mL For admission: +64347.1 mL Physical Exam: General: Awake, somewhat conversational [...] Procedure Component Value Units Date/Time MRSA PCR [[id number]] Collected: 01/24/22 1310 Lab Status: Final result Specimen: Nasopharyngeal Swab Updated: 01/25/22 2224 MRSA Result Negative MRSA Interp -- Negative for methicillin-resistant Staphylococcus aureus (MRSA) This test was performed using the [employer]?? Dx System and the Xpert MRSA Assay. The MRSA target DNA was not detected. The sample processing control and probe check were valid. The performance of this test was determined by the [facility]. It has been cleared by the U.S. Food and Drug Administration for clinical use. Comment: [VERIFIED DATE]01.25.22 Verified By:Alfonso Soto (Electronic Signature) MRSA PCR [[id number]] Collected: 01/23/22 1247 Lab Status: Final result Specimen: Nasopharyngeal Swab Updated: 01/25/22 1023 MRSA Result Negative MRSA Interp -- Negative for methicillin-resistant Staphylococcus aureus (MRSA) This test was performed using the [employer]?? Dx System and the Xpert MRSA Assay. The MRSA target DNA was not detected. The sample processing control and probe check were valid. The performance of this test was determined by the [facility]. It has been cleared by the U.S. Food and Drug Administration for clinical use. Comment: [VERIFIED DATE]01.25.22 Verified By:Nora Shay (Electronic Signature) Lower Respiratory Culture Tracheal Aspirate [[id number]] (Abnormal) (Susceptibility) Collected: 01/23/22 1150 Lab Status: [...] Sensitive [1] Gentamicin is not appropriate for [facility]-therapy. [2] Oxacillin (methicillin) susceptibility is a surrogate for the oral and parenteral cephalosporins, beta-lactam combination agents (amoxicillin-clavulanate, ampicillin-sulbactam and piperacillin-tazobactam) and carbapenem agents. It is NOT a surrogate for penicillin, ampicillin or piperacillin susceptibility. Linear View Blood culture [[id number]] Collected: 01/23/22 0600 Lab Status: Final result Specimen: Blood Updated: 01/28/22 0701 Blood Culture No growth at 5 days. Blood culture [[id number]] Collected: 01/23/22 0126 Lab Status: Final result Specimen: Blood Updated: 01/28/22 0701 Blood Culture No growth at 5 days. COVID-19 PCR [[id number]] (Abnormal) Collected: 01/23/22 0044 Lab Status: Final [...] diagnosis of COVID-19 is performed using the [employer] SARS-CoV-2 Assay as authorized by the FDA Emergency Use Authorization (EUA). This EUA assay is intended for In-vitro Diagnostic (IVD) use with respiratory specimens such as nasopharyngeal swabs collected from individuals during the acute phase of infection. This assay is performed based on the instructions for use provided by [employer] and additional guidance provided by CDC and FDA. Testing is performed in the [facility] Laboratory within the Department of Pathology and Laboratory Medicine at [facility], certified under the Clinical [...] fact sheets at the following FDA website: https://www.fda.gov/medical-devices/uombvghsnxy-pnlsxnv-3138-vnuql-23-xvvabipgp- qxy-pujgxqolrimskb-haniwpo-devices/orzzh-wruclhnblip-lepb SARS-Cov-2 RNA Source Trach Asp MRSA PCR [[id number]] Collected: 01/23/22 0044 Lab Status: Final result [...] of this test was determined by the [facility]. It has been cleared [...] 28, 2022 Critical Care Green Team (pager [phone]) Alcira Dwyer MD - 01/27/2022 10:10 AM [...] kg/m?? I/O last 3 completed shifts: In: 95000.5 [I.V.:91424.5; NG/GT:319; IV Piggyback:236] Out: 8974 [Urine:105; Other:8864; [...] Boykin MD - 01/27/2022 9:[address] [facility] PROGRESS NOTE SECTION OF PULMONARY [...] Section of Pulmonary & Critical Care Pager: [phone] T Gail Long - 01/27/2022 6:14 AM [...] 0620 01/24/22 0016 PHART 7.45 7.48* 7.48* [id number] 33* 29* 30* PO2ART 114* 68* 70* [id number] 22.4 21.1 22.0 Intake/Output Summary (Last 24 hours) at 01/27/2022 09 Last data filed at 01/27/2022 0900 Gross per 24 hour Intake 21857.32 ml Output 7421 ml Net 3034.32 ml [...] Procedure Component Value Units Date/Time MRSA PCR [[id number]] Collected: 01/24/22 1310 Lab Status: Final result [...] of this test was determined by the [facility]. It has been cleared by the U.S. Food and Drug Administration for clinical use. Comment: [VERIFIED DATE]01.25.22 Verified By:Alfonso Soto (Electronic Signature) MRSA PCR [[id number]] Collected: 01/23/22 1247 Lab Status: Final result [...] of this test was determined by the [facility]. It has been cleared by the U.S. Food and Drug Administration for clinical use. Comment: [VERIFIED DATE]01.25.22 Verified By:oNra Shay (Electronic Signature) Lower Respiratory Culture Tracheal Aspirate [[id number]] (Abnormal) (Susceptibility) Collected: 01/23/22 1150 Lab Status: [...] Sensitive [1] Gentamicin is not appropriate for [facility]-therapy. [2] Oxacillin (methicillin) susceptibility is a surrogate for the oral and parenteral cephalosporins, beta-lactam combination agents (amoxicillin-clavulanate, ampicillin-sulbactam and piperacillin-tazobactam) and carbapenem agents. It is NOT a surrogate for penicillin, ampicillin or piperacillin susceptibility. Linear View Blood culture [[id number]] Collected: 01/23/22 0600 Lab Status: Preliminary result Specimen: Blood Updated: 01/27/22 0701 Blood Culture No growth at 4 days. Blood culture [[id number]] Collected: 01/23/22 0126 Lab Status: Preliminary result Specimen: Blood Updated: 01/27/22 0701 Blood Culture No growth at 4 days. COVID-19 PCR [[id number]] (Abnormal) Collected: 01/23/22 0044 Lab Status: Final [...] diagnosis of COVID-19 is performed using the [employer] m SARS-CoV-2 Assay as authorized by the FDA Emergency Use Authorization (EUA). This EUA assay is intended for In-vitro Diagnostic (IVD) use with respiratory specimens such as nasopharyngeal swabs collected from individuals during the acute phase of infection. This assay is performed based on the instructions for use provided by [employer] and additional guidance provided by CDC and FDA. Testing is performed in the [facility] within the Department of Pathology and Laboratory Medicine at [facility], certified under the Clinical [...] fact sheets at the following FDA website: https://www.fda.gov/medical-devices/umtchbijawq-liaydiw-7456-qqxsv-19-pyqmfnkbl- ejz-ckeibrltnsglcy-xdeuxsh-devices/yukgq-yduqpdazive-lrou SARS-Cov-2 RNA Source Trach Asp MRSA PCR [[id number]] Collected: 01/23/22 0044 Lab Status: Final result [...] of this test was determined by the [facility]. It has been cleared [...] 0035 -- 4 Naso/Oral Tube 01/23/22 0059 [place] sump left nostril 01/23/22 0059 left nostril 4 Consults: ortho, neuro, ACS, wound, nephrology Decision Making: Code Status: Full Disposition: ICU Suggestions for changes: Gail oLng January 27, 2022 Critical Care Green Team (pager [phone]) Parrish Esqueda MD - 01/27/2022 5:32 AM [...] (01/27/22 0125) ??? ketamine 0.5 mg/kg/hr (01/27/22 5256) ??? heparin (porcine) infusion 400 Units/hr (01/26/22 9707) ??? bicarbonate CRRT with 4 mEq/L K+, [...] Villela RN - 01/26/2022 8:25 PM EDTSummary: [facility] Images from the original note were [...] 0620 01/24/22 0016 PHART 7.45 7.48* 7.48* [id number] 33* 29* 30* PO2ART 114* 68* 70* [id number] 22.4 21.1 22.0 Intake/Output Summary (Last 24 [...] Procedure Component Value Units Date/Time MRSA PCR [[id number]] Collected: 01/24/22 1310 Lab Status: Final result Specimen: Nasopharyngeal Swab Updated: 01/25/222223 MRSA Result Negative MRSA Interp -- Negative for methicillin-resistant Staphylococcus aureus (MRSA) This test was performed using the [employer]?? Dx System and the Xpert MRSA Assay. The MRSA target DNA was not detected. The sample processing control and probe check were valid. The performance of this test was determined by the [facility]. It has been cleared by the U.S. Food and Drug Administration for clinical use. Comment: [VERIFIED DATE]01.25.22 Verified By:Alfonso Soto (Electronic Signature) MRSA PCR [[id number]] Collected: 01/23/22 1247 Lab Status: Final result [...] of this test was determined by the [facility]. It has been cleared by the U.S. Food and Drug Administration for clinical use. Comment: [VERIFIED DATE]01.25.22 Verified By:Nora Shay (Electronic Signature) Lower Respiratory Culture Tracheal Aspirate [[id number]] (Abnormal) (Susceptibility) Collected: 01/23/22 1150 Lab Status: [...] Sensitive [1] Gentamicin is not appropriate for [facility]-therapy. [2] Oxacillin (methicillin) susceptibility is a surrogate for the oral and parenteral cephalosporins, beta-lactam combination agents (amoxicillin-clavulanate, ampicillin-sulbactam and piperacillin-tazobactam) and carbapenem agents. It is NOT a surrogate for penicillin, ampicillin or piperacillin susceptibility. Linear View Blood culture [[id number]] Collected: 01/23/22 0600 Lab Status: Preliminary result Specimen: Blood Updated: 01/26/22 0701 Blood Culture No growth at 3 days. Blood culture [[id number]] Collected: 01/23/22 0126 Lab Status: Preliminary result Specimen: Blood Updated: 01/26/22 0701 Blood Culture No growth at 3 days. COVID-19 PCR [[id number]] (Abnormal) Collected: 01/23/22 0044 Lab Status: Final [...] diagnosis of COVID-19 is performed using the [employer] m SARS-CoV-2 Assay as authorized by the FDA Emergency Use Authorization (EUA). This EUA assay is intended for In-vitro Diagnostic (IVD) use with respiratory specimens such as nasopharyngeal swabs collected from individuals during the acute phase of infection. This assay is performed based on the instructions for use provided by [employer] and additional guidance provided by [facility] and FDA. Testing is performed in the [facility] Laboratory within the Department of Pathology and Laboratory Medicine at [facility], certified under the Clinical [...] fact sheets at the following FDA website: https://www.fda.gov/medical-devices/pjfsnghffmd-mnmpvuq-7973-rusdg-83-jlmgeoxxm- usn-iobvhqyfqhdhrf-wxsynko-devices/kcpui-ocqeukistkz-fool SARS-Cov-2 RNA Source Trach Asp MRSA PCR [[id number]] Collected: 01/23/22 0044 Lab Status: Final result Specimen: Nasopharyngeal Swab Updated: 01/25/22 1024 MRSA Result Negative MRSA Interp -- Negative for methicillin-resistant Staphylococcus aureus (MRSA) This test was performed using the [employer]?? Dx System and the Xpert MRSA Assay. The MRSA target DNA was not detected. The sample processing control and probe check were valid. The performance of this test was determined by the [facility]. It has been cleared [...] 0035 -- 3 Naso/Oral Tube 01/23/22 0059 [place] sump left nostril 01/23/22 0059 left nostril 3 ETT Airway 01/23/22 0116 01/23/22 0116 -- 3 Consults: ortho Decision Making: Code Status: Full Disposition: ICU Suggestions for changes: Gail Long January 26, 2022 Critical Care Green Team (pager [phone]) Nahed Fraser MD - 01/26/2022 11:32 AM [...] continue ABx until fasciotomy sites closed Nahed Frsaer MD 01/26/2022 No future appointments. Galdino Cotter, [...] Sanz MD - 01/26/2022 8:[address] [facility] PROGRESS NOTE SECTION OF PULMONARY [...] Section of Pulmonary & Critical Care Pager: [phone] Kris Dean MD - 01/26/2022 6:01 AM EDT ORTHOPAEDIC SURGERY INPATIENT PROGRESS NOTE Patient Name: Alix Holland Age: 31 y.o. Surgery/Issue: L forearm, thigh, buttock, leg compartment syndrome s/p fasciotomies Attending: Jose Date of surgery: 01/23/2022 SUBJECTIVE / INTERVAL HISTORY: Alix remains intubated and sedated, but per cleaning staff supervisor he is moving bilateral upper and lower [...] Patient would occasionally take exceptionally large Vt's, lyedql6vou >2 liters. This was not typical however, [...] kg/m?? I/O last 3 completed shifts: In: 41698 [I.V.:9488; NG/GT:97; IV Piggyback:904] Out: 5394 [Urine:171; [...] Boykin MD - 01/25/2022 7:[address] [facility] PROGRESS NOTE SECTION OF PULMONARY [...] MICU Attending Pulmonary & Critical Care Pager: [phone] Kris Dean MD - 01/25/2022 5:55 AM EDT ORTHOPAEDIC SURGERY INPATIENT PROGRESS NOTE Patient Name: Alix Holland Age: 31 y.o. Surgery/Issue: L forearm, thigh, buttock, leg compartment syndrome s/p fasciotomies Attending: Jose Date of surgery: 01/23/2022 SUBJECTIVE / INTERVAL HISTORY: Alix remains intubated and sedated, but per cleaning staff supervisor he is moving bilateral upper and lower [...] 1810 01/23/22 1156 PHART 7.48* 7.46* 7.43 [id number] 29* 31* 32* PO2ART 68* 79* 86 [id number] 21.1 21.5 20.8 Intake/Output Summary (Last 24 [...] Units Date/Time Lower Respiratory Culture Tracheal Aspirate [[id number]] (Abnormal) Collected: 01/23/22 1150 Lab Status: Preliminary result Specimen: Tracheal Aspirate Updated: 01/24/22 0848 Lower Respiratory Culture -- Many Staphylococcus aureus Few mixed bacterial morphotypes suggestive of normal upper respiratory yessy Gram Stain -- Many Neutrophils No squamous epithelial cells Moderate Gram Positive Cocci Blood culture [[id number]] Collected: 01/23/22 0600 Lab Status: Preliminary result Specimen: Blood Updated: 01/24/22 0701 Blood Culture No growth at 1 day. Blood culture [[id number]] Collected: 01/23/22 0126 Lab Status: Preliminary result Specimen: Blood Updated: 01/24/22 0701 Blood Culture No growth at 1 day. COVID-19 PCR [[id number]] (Abnormal) Collected: 01/23/22 0044 Lab Status: Final [...] diagnosis of COVID-19 is performed using the [employer] m SARS-CoV-2 Assay as authorized by the FDA Emergency Use Authorization (EUA). This EUA assay is intended for In-vitro Diagnostic (IVD) use with respiratory specimens such as nasopharyngeal swabs collected from individuals during the acute phase of infection. This assay is performed based on the instructions for use provided by [employer] and additional guidance provided by CDC and FDA. Testing is performed in the [facility] within the Department of Pathology and Laboratory Medicine at [facility], certified under the Clinical [...] fact sheets at the following FDA website: https://www.fda.gov/medical-devices/sdqkzcoskuf-hgyudwg-1486-khdvp-88-mykwkofjs- ceg-kssutkdyiyzvyb-hzlqwcu-devices/nbozm-eyoywtesxoj-kkef SARS-Cov-2 RNA Source Trach Asp ECG: Telemetry [...] who have questions please contact the health career technical education teacher that requested your imaging first. Head wo Contrast (Generic) (Exam End: 01/23/2022 3:58 AM) Impression Globi pallidi infarcts. Mild cerebral edema. Thank you for letting us participate in the care of this patient. If you are a health care provider and have any questions regarding this report, please contact the number below. For patients who have questions please contact the health career technical education teacher that requested your imaging first. Abdomen 1 [...] who have questions please contact the health career technical education teacher that requested your imaging first. Lower Extremity [...] who have questions please contact the health career technical education teacher that requested your imaging first. Chest wo [...] who have questions please contact the health career technical education teacher that requested your imaging first. Upper Extremity [...] who have questions please contact the health career technical education teacher that requested your imaging first. Forearm Left [...] who have questions please contact the health career technical education teacher that requested your imaging first. Chest One [...] who have questions please contact the health career technical education teacher that requested your imaging first. Femur 2 views Left (Generic) (Exam End: 01/23/2022 2:04 PM) Impression No significant osseous finding. Thank you for letting us participate in the care of this patient. If you are a health care provider and have any questions regarding this report, please contact the number below. For patients who have questions please contact the health career technical education teacher that requested your imaging first. Electronically signed by: Lisandro Pruett MD, [facility] ([phone]), at 01/23/2022 2:10 PM XR Tibia Fibula Left (Generic) (Exam End: 01/23/2022 2:04 PM) Impression No bony abnormality seen. Thank you for letting us participate in the care of this patient. If you are a health care provider and have any questions regarding this report, please contact the number below. For patients who have questions please contact the health career technical education teacher that requested your imaging first. Chest One [...] who have questions please contact the health career technical education teacher that requested your imaging first. Electronically signed by: Lisandro Pruett MD, [facility] ([phone]), at 01/23/2022 5:01 PM Assessment: Alix is [...] 24, 2022 Critical Care Green Team (pager [phone]) T Angelina Reynoso MD - 01/24/2022 3:02 PM EDT Nephrology Attending Procedure note: CRRT Alix Holland was seen and examined on CVVH. Data and chart reviewed. The case was discussed with the CCS team 31 y.o.??male?? presented to ICU having been found down at home conscious but then experienced ppb-il-kestuxkk cardiac arrest with ROSC, severe hyperkalemia, rhabdomyolysis, [...] treatment for lisinopril, GERD was brought to [facility] via EMS today after he was notedto have a cardiac arrest. He had a hospital admission at [facility] in Apr 2021 for angioedema. During that admission, he had initially presented at [facility] with facial and oropharyngeal swelling and had to be fibreoptically intubated in the OR. He was transferred to [facility] for further management and received treatment with [...] EMS was called and en route to [facility], he was noted to be in possible SVT. He was given narcan which did not help. The details are slightly uncertain/unclear. On arrival to [facility], he was noted to have a V. tach arrest for which she was shocked. He is lab work was consistent with hyperkalemia with a potassium of 7.8 for which she received multiple doses of sodium bicarbonate, calcium gluconate and insulin/D10 with improvement in potassium to5.4. He was also intubated at [facility] and was transferred to [facility] for further management. He was found to be COVID-positive at [facility]. On arrival to [facility], he was again noted to be hyperkalemic [...] to OSH and and after arrival to [facility], was weaned to minimal oxygen support. CT [...] eyes with verbal stimulus. Has followed commands. [facility] labs and studies: 01/24/2022 WBC 11.4 hemoglobin 14.8 hematocrit 41.7 platelets 136 ABG 7.4 03/29/1967 Sodium 136 potassium 4.4 chloride 103 [place] [address] Total bilirubin 0.5 AST 1181 ALT 682 [...] 0035 -- 1 Naso/Oral Tube 01/23/22 0059 [place] sump left nostril 01/23/22 0059 left nostril [...] on CRRT. Hg 14.8, CK remains elevated 81085. AFVSS, NAEON. No motor or sensory exam [...] SBT Protocol: Yes SBT: Not performed per [facility] availability. Vent Settings: Ventilator Mode: [...] >220,000 (H) 0 - 200 unit/L TSH [place] Result Value Ref Range TSH 7.69 (H) [...] Value Ref Range T&S only valid at [facility] Triglyceride Result Value Ref Range Triglycerides [...] mcL Appearance UA Cloudy (A) Clear Spec [place] UA >=1.030 (A) 1.006 - 1.030 Color [...] Skin Integrity: WDL Ambu bag setup at [facility] Breath Sounds: coarse/diminished Secretions: scant creamy [...] down at home conscious but then experienced mcu-se-jzoyvrpl cardiac arrest with ROSC, severe hyperkalemia, rhabdomyolysis, [...] EMS. Patient had cardiac arrest enroute to [facility] ED for which Jitendra CPR [...] -Tylenol, - salicylates, -ETOH. Upon arrival to [facility], pt intubated and ventilator-noncompliant. Ketamine boluses given [...] 01/23/22 0721 01/23/22 0125 PHART 7.37 7.32* [id number] 28* 33* PO2ART 96 68* [id number] 15.7* 16.8* Intake/Output Summary (Last 24 hours) [...] who have questions please contact the health career technical education teacher that requested your imaging first. Head wo Contrast (Generic) (Exam End: 01/23/2022 3:58 AM) Impression Globi pallidi infarcts. Mild cerebral edema. Thank you for letting us participate in the care of this patient. If you are a health care provider and have any questions regarding this report, please contact the number below. For patients who have questions please contact the health career technical education teacher that requested your imaging first. Abdomen 1 [...] who have questions please contact the health career technical education teacher that requested your imaging first. Chest wo [...] who have questions please contact the health career technical education teacher that requested your imaging first. Upper Extremity [...] who have questions please contact the health career technical education teacher that requested your imaging first. Forearm Left [...] who have questions please contact the health career technical education teacher that requested your imaging first. Chest One [...] who have questions please contact the health career technical education teacher that requested your imaging first. Assessment: Alix [...] FiO2 weaned to 30% since admission to [facility]. He has also been febrile with Tmax [...] 23, 2022 Critical Care Green Team (pager [phone]) Tex Robles MD - 01/23/2022 8:22 AM EDT MICU STAFF ADMISSION NOTE Critical Care Medicine Author: Tex Robles MD Patient seen and examined on admission to the ICU. HPI Alix Holland is a 31 y.o. male with PMH of Polysubstance abuse including alcohol, HTN with prior treatment for lisinopril, GERD was brought to [facility] via EMS today after he was notedto have a cardiac arrest. He had a hospital admission at [facility] in Apr 2021 for angioedema. During that admission, he had initially presented at [facility] with facial and oropharyngeal swelling and had to be fibreoptically intubated in the OR. He was transferred to [facility] for further management and received treatment with [...] EMS was called and en route to [facility], he was noted to be in possible SVT. He was given narcan which did not help. The details are slightly uncertain/unclear. On arrival to [facility], he was noted to have a V. tach arrest for which she was shocked. He is lab work was consistent with hyperkalemia with a potassium of 7.8 for which she received multiple doses of sodium bicarbonate, calcium gluconate and insulin/D10 with improvement in potassium to5.4. He was also intubated at [facility] and was transferred to [facility] for further management. He was found to be COVID-positive at [facility]. On arrival to [facility], he was again noted to be hyperkalemic [...] to OSH and and after arrival to [facility], was weaned to minimal oxygen support. CT [...] done by CHRISTA today given COVID precautions. [facility] labs and studies: WBC 4.1 hemoglobin 17.6 [...] less than 1 Naso/Oral Tube 01/23/22 0059 [place] sump left nostril 01/23/22 0059 left nostril [...] Wen MD - 01/23/2022 4:[address] [facility] TeleICU Initial Assessment Note I established audio/visual communication with the patient's room, reviewed the eDH, and discussed the patient's case with transfer center and ICU fellow. History and Assessment: 31 y.o. male w/ PMHx of HTN, angioedema and polysubstance abuse (cocaine, EtOH and heroin) transferred from [facility] ED after having presented there with an lqf-jv-kmwsurew arrest. He reportedly took fentanyl. EMS administered [...] Result Value CK, Total >220,000 (H) TSH [place] Result Value TSH 7.69 (H) ABO/Rh Typing [...] Validity Result Value T&S only valid at [facility] Triglyceride Result Value Triglycerides 273 T4, free Result Value Free T4 1.19 _Urinalysis with microscopic Result Value Glucose UA Negative Protein UA >=300 (A) Bilirubin UA Moderate (A) Urobilinogen UA Normal pH UA 6.5 Blood UA Large (A) Ketones UA Trace (A) Nitrite UA Positive (A) Leukocytes UA Negative Appearance UA Cloudy (A) Spec [place] UA >=1.030 (A) Color UA Brown (A) [...] arrest for which he is now at [facility] being treated. On exam primary team found [...] yet resuscitated, with elevated Hg 21.5, CK >739666, and K 7.6 which may be contributing [...] Santos MD - 03/15/2022 6:22 AM EDT [facility] General Surgery History and Physical ID: [...] Arteriogram Lower Extremity 02/06/2022 Nicole Vivas MD [facility] RAD ??? PRO DEBRIDEMENT BONE EA ADDL 20 SQCM 02/08/2022 EACH ADDITIONAL 20 SQ CM, OR PART THEREOF (WRVU 1.8) performed by Jeanette Chatterjee MD at [facility] ? ? PRO DEBRIDEMENT BONE MUSCLE &/FASCIA 20 SQ CM/< Left 01/29/2022 DEBRIDEMENT SKIN, SUBCU, MUSCLE, BONE, LOWER EXTREMITY (WRVU 4.1) performed by Tom Valdovinos MD [facility] MAIN OR ? ? PRO DEBRIDEMENT BONE MUSCLE &/FASCIA 20 SQ CM/< Left 01/31/2022 DEBRIDEMENT SKIN, SUBCU, MUSCLE, BONE, LOWER EXTREMITY (WRVU 4.1) performed by Jose Branch MD at [facility] MAIN OR ? ? PRO DEBRIDEMENT BONE MUSCLE &/FASCIA 20 SQ CM/< Left 01/31/2022 DEBRIDEMENT SKIN, SUBCU, MUSCLE, BONE UPPER EXTREMITY (WRVU 4.1) performed by Jose Branch MDat [facility] MAIN OR ? ? PRO DEBRIDEMENT BONE MUSCLE &/FASCIA 20 SQ CM/< Left 02/02/2022 DEBRIDEMENT SKIN, SUBCU, MUSCLE, BONE UPPER EXTREMITY (WRVU 4.1) performed by Hina Starks MD at [facility] OR ? ? PRO DEBRIDEMENT BONE MUSCLE &/FASCIA 20 SQ CM/< Left 02/02/2022 DEBRIDEMENT SKIN, SUBCU, MUSCLE, BONE, LOWER EXTREMITY (WRVU 4.1) performed by Hina Starks MD at [facility] OR ? ? PRO DEBRIDEMENT MUSCLE AND FASCIA 20 SQ CM/< Left 01/26/2022 DEBRIDEMENT SKIN, SUBCU, MUSCLE, LOWER EXTREMITY (WRVU 2.7) performed by Sigifredo Garcia MD at [facility] OR ? ? PRO DEBRIDEMENT MUSCLE AND FASCIA 20 SQ CM/< Left 01/26/2022 DEBRIDEMENT SKIN, SUBCU, MUSCLE, UPPER EXTREMITY (WRVU 2.7) performed by Sigifredo Garcia MD at [facility] OR ? ? PRO DEBRIDEMENT MUSCLE AND FASCIA 20 SQ CM/< Left 02/05/2022 DEBRIDEMENT SKIN, SUBCU, MUSCLE, LOWER EXTREMITY (WRVU 2.7) performed by Tom Valdovinos MD at [facility] OR ? ? PRO DEBRIDEMENT MUSCLE AND FASCIA 20 SQ CM/< Left 02/04/2022 DEBRIDEMENT SKIN, SUBCU, MUSCLE, LOWER EXTREMITY (WRVU 2.7) performed by Sigifredo Garcia MD at [facility] OR ? ? PRO DEBRIDEMENT MUSCLE AND FASCIA 20 SQ CM/< Left 02/15/2022 DEBRIDEMENT SKIN, SUBCU, MUSCLE, UPPER EXTREMITY (WRVU 2.7) performed by Jayme Armstrong MD at [facility] OR ? ? PRO DEBRIDEMENT MUSCLE AND FASCIA 20 SQ CM/< Left 02/19/2022 DEBRIDEMENT SKIN, SUBCU, MUSCLE, LOWER EXTREMITY (WRVU 2.7) performed by Jayme Armstrong MD at [facility] OR ? ? PRO DEBRIDEMENT MUSCLE AND FASCIA 20 SQ CM/< Left 02/22/2022 DEBRIDEMENT SKIN, SUBCU, MUSCLE, LOWER EXTREMITY (WRVU 2.7) performed by Parrish Betancourt MD at [facility] OR ? ? PRO DEBRIDEMENT MUSCLE AND FASCIA 20 SQ CM/< Left 02/24/2022 DEBRIDEMENT SKIN, SUBCU, MUSCLE, LOWER EXTREMITY (WRVU 2.7) performed by Parrish Betancourt MD at [facility] OR ? ? PRO DEBRIDEMENT MUSCLE AND FASCIA 20 SQ CM/< Left 02/26/2022 DEBRIDEMENT SKIN, SUBCU, MUSCLE, UPPER EXTREMITY (WRVU 2.7) performed by Parrish Betancourt MD at [facility] OR ? ? PRO DEBRIDEMENT SUBCUTANEOUS TISSUE 20 SQCM/< Left 02/04/2022 DEBRIDEMENT SKIN AND SUBCU, UPPER EXTREMITY (WRVU 1.01) [facility] ? ? PRO DEBRIDEMENT SUBCUTANEOUS TISSUE 20 SQCM/< Left 02/08/2022 DEBRIDEMENT SKIN AND SUBCU, LOWER EXTREMITY (WRVU 1.01) performed by Jeanette Chatterjee MD at [facility] OR ? ? PRO DEBRIDEMENT SUBCUTANEOUS TISSUE 20 SQCM/< Left 02/09/2022 DEBRIDEMENT SKIN AND SUBCU, LOWER EXTREMITY (WRVU 1.01) performed by Jeanette Chatterjee MD at [facility] OR ? ? PRO DEBRIDEMENT SUBCUTANEOUS TISSUE 20 SQCM/< Left 02/11/2022 DEBRIDEMENT SKIN AND SUBCU, LOWER EXTREMITY (WRVU 1.01) performed by Parrish Betancourt MD at [facility] OR ? ? PRO DEBRIDEMENT SUBCUTANEOUS TISSUE 20 SQCM/< Left 02/13/2022 DEBRIDEMENT SKIN AND SUBCU, LOWER EXTREMITY (WRVU 1.01) performed by Jeanette Chatterjee MD at [facility] OR ? ? PRO DEBRIDEMENT SUBCUTANEOUS TISSUE 20 SQCM/< Left 02/15/2022 DEBRIDEMENT SKIN AND SUBCU, LOWER EXTREMITY (WRVU 1.01) performed by Jayme Armstrong MD at [facility] OR ? ? PRO DEBRIDEMENT SUBCUTANEOUS TISSUE 20 SQCM/< Left 02/17/2022 DEBRIDEMENT SKIN AND SUBCU, LOWER EXTREMITY (WRVU 1.01) performed by Jayme Armstrong MD at [facility] OR ??? PRO DECOMP FOREARM, 2 COMPART, W/O DEBRIDE Left 01/23/2022 FASCIOTOMY; FOREARM AND\OR WRIST, FLEXOR & EXTENS. COMP (WRVU 10.79) performed by Sigifredo Garcia MD at [facility] OR ??? PRO DECOMPRESS ANT/LAT+POST LEG CMPART Left 01/23/2022 FASCIOTOMY, LOWER LEG, ALL COMPARTMENTS (WRVU 7.82) performed by Sigifredo Garcia MD at [facility] OR ??? PRO DRESSING CHANGE UNDER ANESTHESIA Left 02/11/2022 DRESSING CHANGE (FOR OTHER THAN GALLOWAY) UNDER ANES., UPPER EXTREMITY (WRVU 0.86) performed by Parrish Betancourt MD at [facility] OR ??? PRO DRESSING CHANGE UNDER ANESTHESIA Left 02/13/2022 DRESSING CHANGE (FOR OTHER THAN GALLOWAY) UNDER ANES., UPPER EXTREMITY (WRVU 0.86) performed by Jeanette Chatterjee MD at [facility] OR ??? PRO DRESSING CHANGE UNDER ANESTHESIA Left 02/17/2022 DRESSING CHANGE (FOR OTHER THAN GALLOWAY) UNDER ANES., UPPER EXTREMITY (WRVU 0.86) performed by Jayme Armstrong MD at [facility] OR ??? PRO DRESSING CHANGE UNDER ANESTHESIA Left 02/19/2022 DRESSING CHANGE (FOR OTHER THAN GALLOWAY) UNDER ANES., UPPER EXTREMITY (WRVU 0.86) performed by Jayme Armstrong MD at [facility] OR ??? PRO DRESSING CHANGE UNDER ANESTHESIA Left 02/22/2022 DRESSING CHANGE (FOR OTHER THAN GALLOWAY) UNDER ANES., UPPER EXTREMITY (WRVU 0.86) performed by Parrish Betancourt MD at [facility] OR ??? PRO DRESSING CHANGE UNDER ANESTHESIA Left 02/24/2022 DRESSING CHANGE (FOR OTHER THAN GALLOWAY) UNDER ANES., UPPER EXTREMITY (WRVU 0.86) performed by Parrish Betancourt MD at [facility] OR ??? PRO DRESSING CHANGE UNDER ANESTHESIA Left 02/26/2022 DRESSING CHANGE (FOR OTHER THAN GALLOWAY) UNDER ANES., LOWER EXTREMITY (WRVU 0.86) performed by Parrish Betancourt MD at [facility] OR ??? PRO DRESSING CHANGE UNDER ANESTHESIA Left 02/26/2022 DRESSING CHANGE (FOR OTHER THAN GALLOWAY) UNDER ANES., UPPER EXTREMITY (WRVU 0.86) performed by Parrish Betancourt MD at [facility] OR ??? PRO DRESSING CHANGE UNDER ANESTHESIA Left 03/01/2022 DRESSING CHANGE (FOR OTHER THAN GALLOWAY) UNDER ANES., LOWER EXTREMITY (WRVU 0.86) performed by Wilile Sanabria MD at [facility] OR ??? PRO DRESSING CHANGE UNDER ANESTHESIA N/A 03/01/2022 DRESSING CHANGE (FOR OTHER THAN GALLOWAY) UNDER ANES., UPPER EXTREMITY (WRVU 0.86) performed by Willie Sanabria MD at [facility] OR ??? PRO DRESSING CHANGE UNDER ANESTHESIA Left 03/13/2022 DRESSING CHANGE (FOR OTHER THAN GALLOWAY) UNDER ANES., UPPER EXTREMITY (WRVU 0.86) performed by Willie Sanabria MD at [facility] OR ??? PRO DRESSING CHANGE UNDER ANESTHESIA Left 03/13/2022 DRESSING CHANGE (FOR OTHER THAN GALLOWAY) UNDER ANES., LOWER EXTREMITY (WRVU 0.86) performed by Willie Sanabria MD at [facility] OR ? ? PRO I&D DEEP ABSCESS BURSA/HEMATOMA THIGH/KNEE REGION Left 02/06/2022 INCISION & DRAINAGE ABSCESS OR HEMATOMA, THIGH, KNEE SUPERFICIAL (WRVU 6.78) performed by Jayme Armstrong MD at [facility] OR ??? PRO INCIS OF HIP/THIGH FASCIA Left 01/23/2022 @FASCIOTOMY,THIGH OR HIP FOR COMPARTMENT SYNDROME (WRVU 12.89) performed by Sigifredo Garcia MD at [facility] OR ??? PRO NEGATIVE PRESSURE WOUND THERAPY, LESS THAN OR EQUAL TO 50 SQCM Left 02/05/2022 DRESSING CHANGE (VAC ASSISTED) UP TO 50SQ.CM (WRVU 0.55) performed by Orville Hennessy MD at [facility] OR ??? PRO NEGATIVE PRESSURE WOUND THERAPY, LESS THAN OR EQUAL TO 50 SQCM Left 02/05/2022 DRESSING CHANGE (VAC ASSISTED) UP TO 50SQ.CM (WRVU 0.55) performed by Tom Valdovinos MD at [facility] OR ??? PRO NEGATIVE PRESSURE WOUND THERAPY, LESS THAN OR EQUAL TO 50 SQCM Left 02/08/2022 DRESSING CHANGE (VAC ASSISTED) UP TO 50SQ.CM (WRVU 0.55) performed by Jeanette Chatterjee MD at [facility] OR ??? PRO NEGATIVE PRESSURE WOUND THERAPY, LESS THAN OR EQUAL TO 50 SQCM Left 03/03/2022 DRESSING CHANGE (VAC ASSISTED) UP TO 50SQ.CM (WRVU 0.55) performed by Willie Sanabria MD at [facility] MAIN OR ??? PRO OPEN TREAT MANDIBLE CONDYLE FX, COMPL 04/27/2013 OPEN TREATMENT, COMPLEX MANDIBLE FX., MULTI APPROACH, W/ FIXATION performed by Kishore Neil MD at [facility] MAIN OR ??? PRO REVISE MEDIAN N/CARPAL TUNNEL SURG Left 01/23/2022 MEDIAN NERVE DECOMPRESSION (CARPAL TUNNEL RELEASE) (WRVU 4.97) performed by Sigifredo Garcia MD at [facility] MAIN OR ??? PRO SEC CLSR SURG WOUND/DEHSN EXTENSIVE/COMPLICATED Left 01/26/2022 SECONDARY CLOSURE SURGICAL WOUND OR DEHISCENCE, EXTENSIVE OR COMPLICATED, UPPER EXTREMITY (WRVU 12.04) performed by Sigifredo Garcia MD at [facility] MAIN OR ??? PRO SKIN SUB GRAFT TRNK/ARM/LEG AREA UNDER 100SQCM EA ADL 25SQCM Left 03/10/2022 APPL SKIN SUB GRAFT TO LEGS, TO 100 SQ CM; EA ADD'L 25 SQ CM AREA (WRVU 0.33) performed by Parrish Betancourt MD at [facility] MAIN OR ??? PRO SKIN SUB GRAFT TRNK/ARM/LEG AREA UNDER 100SQCM EA ADL 25SQCM Left 03/10/2022 APPL SKIN SUB GRAFT TO ARMS, TO 100 SQ CM; EA ADD'L 25 SQ CM AREA (WRVU 0.33) performed by Parrish Betancourt MD at [facility] MAIN OR Current Facility-Administered Medications: ??? MEROpenem (Merrem) 1 g vial attach to sodium chloride 0.9% 100 mL Mini-Bag Plus, 1 g, Intravenous, Q8H, Nancy Chahal MD, Stopped at 03/15/22 0210 ??? vancomycin (Vancocin) capsule 125 mg, 125 mg, Oral, BID, Floridalma Sandoval MD, 125 mg at 03/14/22 7673 ??? vancomycin (Vancocin) 1 gram in sodium [...] mg/mL) in sodium chloride 0.9% 50 mL LAYER OFF infusion, , Intravenous, LAYER OFF Only, Jareth Alonzo MD, 50 mg at [...] Q1 Min PRN, Kinjal Alonzo MD ??? LAYER OFF hutton, , Intravenous, Continuous PRN, Jareth Alonzo MD ??? HYDROmorphone (mg) LAYER OFF shift total and Settings verification, , Intravenous, 2 Times Daily- LAYER OFF Shift Total, Jareth Alonzo MD ??? docusate sodium (Colace) capsule 100 mg, 100 mg, Oral, BID, Jareth Alonzo MD, 100 mg at 03/14/22 2147 ??? heparin (porcine) (5,000 units/1 mL) subcutaneous injection 5,000 Units, 5,000 Units, Subcutaneous, Q8H [place], Jareth Alonzo MD, 5,000 Units at 03/15/22 0669 ??? naloxone (Narcan) (0.4 mg/mL) injection 0.04 [...] Santos MD - 03/10/2022 6:15 AM EDT [facility] General Surgery History and Physical Alix [...] Arteriogram Lower Extremity 02/06/2022 Nicole Vivas MD [facility] RAD ??? PRO DEBRIDEMENT BONE EA ADDL 20 SQCM 02/08/2022 EACH ADDITIONAL 20 SQ CM, OR PART THEREOF (WRVU 1.8) performed by Jeanette Chatterjee MD at [facility] ? ? PRO DEBRIDEMENT BONE MUSCLE &/FASCIA 20 SQ CM/< Left 01/29/2022 DEBRIDEMENT SKIN, SUBCU, MUSCLE, BONE, LOWER EXTREMITY (WRVU 4.1) performed by Tom Valdovinos MD [facility] MAIN OR ? ? PRO DEBRIDEMENT BONE MUSCLE &/FASCIA 20 SQ CM/< Left 01/31/2022 DEBRIDEMENT SKIN, SUBCU, MUSCLE, BONE, LOWER EXTREMITY (WRVU 4.1) performed by Jose Branch MD at [facility] MAIN OR ? ? PRO DEBRIDEMENT BONE MUSCLE &/FASCIA 20 SQ CM/< Left 01/31/2022 DEBRIDEMENT SKIN, SUBCU, MUSCLE, BONE UPPER EXTREMITY (WRVU 4.1) performed by Jose Branch MDat [facility] MA[facility] OR ? ? PRO DEBRIDEMENT BONE MUSCLE &/FASCIA 20 SQ CM/< Left 02/02/2022 DEBRIDEMENT SKIN, SUBCU, MUSCLE, BONE UPPER EXTREMITY (WRVU 4.1) performed by Hina Starks MD at [facility] OR ? ? PRO DEBRIDEMENT BONE MUSCLE &/FASCIA 20 SQ CM/< Left 02/02/2022 DEBRIDEMENT SKIN, SUBCU, MUSCLE, BONE, LOWER EXTREMITY (WRVU 4.1) performed by Hina Starks MD at [facility] OR ? ? PRO DEBRIDEMENT MUSCLE AND FASCIA 20 SQ CM/< Left 01/26/2022 DEBRIDEMENT SKIN, SUBCU, MUSCLE, LOWER EXTREMITY (WRVU 2.7) performed by Sigifredo Garcia MD at [facility] OR ? ? PRO DEBRIDEMENT MUSCLE AND FASCIA 20 SQ CM/< Left 01/26/2022 DEBRIDEMENT SKIN, SUBCU, MUSCLE, UPPER EXTREMITY (WRVU 2.7) performed by Sigifredo Garcia MD at [facility] OR ? ? PRO DEBRIDEMENT MUSCLE AND FASCIA 20 SQ CM/< Left 02/05/2022 DEBRIDEMENT SKIN, SUBCU, MUSCLE, LOWER EXTREMITY (WRVU 2.7) performed by Tom Valdovinos MD at [facility] OR ? ? PRO DEBRIDEMENT MUSCLE AND FASCIA 20 SQ CM/< Left 02/04/2022 DEBRIDEMENT SKIN, SUBCU, MUSCLE, LOWER EXTREMITY (WRVU 2.7) performed by Sigifredo Garcia MD at [facility] OR ? ? PRO DEBRIDEMENT MUSCLE AND FASCIA 20 SQ CM/< Left 02/15/2022 DEBRIDEMENT SKIN, SUBCU, MUSCLE, UPPER EXTREMITY (WRVU 2.7) performed by Jayme Armstrong MD at [facility] OR ? ? PRO DEBRIDEMENT MUSCLE AND FASCIA 20 SQ CM/< Left 02/19/2022 DEBRIDEMENT SKIN, SUBCU, MUSCLE, LOWER EXTREMITY (WRVU 2.7) performed by Jayme Armstrong MD at [facility] OR ? ? PRO DEBRIDEMENT MUSCLE AND FASCIA 20 SQ CM/< Left 02/22/2022 DEBRIDEMENT SKIN, SUBCU, MUSCLE, LOWER EXTREMITY (WRVU 2.7) performed by Parrish Betancourt MD at [facility] OR ? ? PRO DEBRIDEMENT MUSCLE AND FASCIA 20 SQ CM/< Left 02/24/2022 DEBRIDEMENT SKIN, SUBCU, MUSCLE, LOWER EXTREMITY (WRVU 2.7) performed by Parrish Betancourt MD at [facility] OR ? ? PRO DEBRIDEMENT MUSCLE AND FASCIA 20 SQ CM/< Left 02/26/2022 DEBRIDEMENT SKIN, SUBCU, MUSCLE, UPPER EXTREMITY (WRVU 2.7) performed by Parrish Betancourt MD at [facility] OR ? ? PRO DEBRIDEMENT SUBCUTANEOUS TISSUE 20 SQCM/< Left 02/04/2022 DEBRIDEMENT SKIN AND SUBCU, UPPER EXTREMITY (WRVU 1.01) performed [facility] ? ? PRO DEBRIDEMENT SUBCUTANEOUS TISSUE 20 SQCM/< Left 02/08/2022 DEBRIDEMENT SKIN AND SUBCU, LOWER EXTREMITY (WRVU 1.01) performed by Jeanette Chatterjee MD at [facility] OR ? ? PRO DEBRIDEMENT SUBCUTANEOUS TISSUE 20 SQCM/< Left 02/09/2022 DEBRIDEMENT SKIN AND SUBCU, LOWER EXTREMITY (WRVU 1.01) performed by Jeanette Chatterjee MD at [facility] OR ? ? PRO DEBRIDEMENT SUBCUTANEOUS TISSUE 20 SQCM/< Left 02/11/2022 DEBRIDEMENT SKIN AND SUBCU, LOWER EXTREMITY (WRVU 1.01) performed by Parrish Betancourt MD at [facility] OR ? ? PRO DEBRIDEMENT SUBCUTANEOUS TISSUE 20 SQCM/< Left 02/13/2022 DEBRIDEMENT SKIN AND SUBCU, LOWER EXTREMITY (WRVU 1.01) performed by Jeanette Chatterjee MD at [facility] OR ? ? PRO DEBRIDEMENT SUBCUTANEOUS TISSUE 20 SQCM/< Left 02/15/2022 DEBRIDEMENT SKIN AND SUBCU, LOWER EXTREMITY (WRVU 1.01) performed by Jayme Armstrong MD at [facility] OR ? ? PRO DEBRIDEMENT SUBCUTANEOUS TISSUE 20 SQCM/< Left 02/17/2022 DEBRIDEMENT SKIN AND SUBCU, LOWER EXTREMITY (WRVU 1.01) performed by Jayme Armstrong MD at [facility] OR ??? PRO DECOMP FOREARM, 2 COMPART, W/O DEBRIDE Left 01/23/2022 FASCIOTOMY; FOREARM AND\OR WRIST, FLEXOR & EXTENS. COMP (WRVU 10.79) performed by Sigifredo Garcia MD at [facility] OR ??? PRO DECOMPRESS ANT/LAT+POST LEG CMPART Left 01/23/2022 FASCIOTOMY, LOWER LEG, ALL COMPARTMENTS (WRVU 7.82) performed by Sigifredo Garcia MD at [facility] OR ??? PRO DRESSING CHANGE UNDER ANESTHESIA Left 02/11/2022 DRESSING CHANGE (FOR OTHER THAN GALLOWAY) UNDER ANES., UPPER EXTREMITY (WRVU 0.86) performed by Parrish Betancourt MD at [facility] OR ??? PRO DRESSING CHANGE UNDER ANESTHESIA Left 02/13/2022 DRESSING CHANGE (FOR OTHER THAN GALLOWAY) UNDER ANES., UPPER EXTREMITY (WRVU 0.86) performed by Jeanette Chatterjee MD at [facility] OR ??? PRO DRESSING CHANGE UNDER ANESTHESIA Left 02/17/2022 DRESSING CHANGE (FOR OTHER THAN GALLOWAY) UNDER ANES., UPPER EXTREMITY (WRVU 0.86) performed by Jayme Armstrong MD at [facility] OR ??? PRO DRESSING CHANGE UNDER ANESTHESIA Left 02/19/2022 DRESSING CHANGE (FOR OTHER THAN GALLOWAY) UNDER ANES., UPPER EXTREMITY (WRVU 0.86) performed by Jayme Armstrong MD at [facility] OR ??? PRO DRESSING CHANGE UNDER ANESTHESIA Left 02/22/2022 DRESSING CHANGE (FOR OTHER THAN GALLOWAY) UNDER ANES., UPPER EXTREMITY (WRVU 0.86) performed by Parrish Betancourt MD at [facility] OR ??? PRO DRESSING CHANGE UNDER ANESTHESIA Left 02/24/2022 DRESSING CHANGE (FOR OTHER THAN GALLOWAY) UNDER ANES., UPPER EXTREMITY (WRVU 0.86) performed by Parrish Betancourt MD at [facility] OR ??? PRO DRESSING CHANGE UNDER ANESTHESIA Left 02/26/2022 DRESSING CHANGE (FOR OTHER THAN GALLOWAY) UNDER ANES., LOWER EXTREMITY (WRVU 0.86) performed by Parrish Betancourt MD at [facility] OR ??? PRO DRESSING CHANGE UNDER ANESTHESIA Left 02/26/2022 DRESSING CHANGE (FOR OTHER THAN GALLOWAY) UNDER ANES., UPPER EXTREMITY (WRVU 0.86) performed by Parrish Betancourt MD at [facility] OR ??? PRO DRESSING CHANGE UNDER ANESTHESIA Left 03/01/2022 DRESSING CHANGE (FOR OTHER THAN GALLOWAY) UNDER ANES., LOWER EXTREMITY (WRVU 0.86) performed by Willie Sanabria MD at [facility] OR ??? PRO DRESSING CHANGE UNDER ANESTHESIA N/A 03/01/2022 DRESSING CHANGE (FOR OTHER THAN GALLOWAY) UNDER ANES., UPPER EXTREMITY (WRVU 0.86) performed by Willie Sanabria MD at [facility] OR ? ? PRO I&D DEEP ABSCESS BURSA/HEMATOMA THIGH/KNEE REGION Left 02/06/2022 INCISION & DRAINAGE ABSCESS OR HEMATOMA, THIGH, KNEE SUPERFICIAL (WRVU 6.78) performed by Jayme Armstrong MD at [facility] OR ??? PRO INCIS OF HIP/THIGH FASCIA Left 01/23/2022 @FASCIOTOMY,THIGH OR HIP FOR COMPARTMENT SYNDROME (WRVU 12.89) performed by Sigifredo Garcia MD at [facility] OR ??? PRO NEGATIVE PRESSURE WOUND THERAPY, LESS THAN OR EQUAL TO 50 SQCM Left 02/05/2022 DRESSING CHANGE (VAC ASSISTED) UP TO 50SQ.CM (WRVU 0.55) performed by Orville Hennessy MD at [facility] OR ??? PRO NEGATIVE PRESSURE WOUND THERAPY, LESS THAN OR EQUAL TO 50 SQCM Left 02/05/2022 DRESSING CHANGE (VAC ASSISTED) UP TO 50SQ.CM (WRVU 0.55) performed by Tom Valdovinos MD at [facility] MA[facility] OR ??? PRO NEGATIVE PRESSURE WOUND THERAPY, LESS THAN OR EQUAL TO 50 SQCM Left 02/08/2022 DRESSING CHANGE (VAC ASSISTED) UP TO 50SQ.CM (WRVU 0.55) performed by Jeanette Chatterjee MD at [facility] MA[facility] OR ??? PRO NEGATIVE PRESSURE WOUND THERAPY, LESS THAN OR EQUAL TO 50 SQCM Left 03/03/2022 DRESSING CHANGE (VAC ASSISTED) UP TO 50SQ.CM (WRVU 0.55) performed by Willie Sanabria MD at [facility] MAIN OR ??? PRO OPEN TREAT MANDIBLE CONDYLE FX, COMPL 04/27/2013 OPEN TREATMENT, COMPLEX MANDIBLE FX., MULTI APPROACH, W/ FIXATION performed by Kishore Neil MD at [facility] OR ??? PRO REVISE MEDIAN N/CARPAL TUNNEL SURG Left 01/23/2022 MEDIAN NERVE DECOMPRESSION (CARPAL TUNNEL RELEASE) (WRVU 4.97) performed by Sigifredo Garcia MD at [facility] MA[facility] OR ??? PRO SEC CLSR SURG WOUND/DEHSN EXTENSIVE/COMPLICATED Left 01/26/2022 SECONDARY CLOSURE SURGICAL WOUND OR DEHISCENCE, EXTENSIVE OR COMPLICATED, UPPER EXTREMITY (WRVU 12.04) performed by Sigifredo Garcia MD at [facility] MA[facility] OR Current Facility-Administered Medications: ??? [...] 20 g, 20 g, Oral, BID PRN, Veot Hidalgo MD ??? 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 ? [...] Arteriogram Lower Extremity 02/06/2022 Nicole Vivas MD [facility] RAD ??? PRO DEBRIDEMENT BONE EA ADDL 20 SQCM 02/08/2022 EACH ADDITIONAL 20 SQ CM, OR PART THEREOF (WRVU 1.8) performed by Jeanette Chatterjee MD at [facility] ? ? PRO DEBRIDEMENT BONE MUSCLE &/FASCIA 20 SQ CM/< Left 01/29/2022 DEBRIDEMENT SKIN, SUBCU, MUSCLE, BONE, LOWER EXTREMITY (WRVU 4.1) performed by Tom Valdovinos MD [facility] MAIN OR ? ? PRO DEBRIDEMENT BONE MUSCLE &/FASCIA 20 SQ CM/< Left 01/31/2022 DEBRIDEMENT SKIN, SUBCU, MUSCLE, BONE, LOWER EXTREMITY (WRVU 4.1) performed by Jose Branch MD at [facility] MA[facility] OR ? ? PRO DEBRIDEMENT BONE MUSCLE &/FASCIA 20 SQ CM/< Left 01/31/2022 DEBRIDEMENT SKIN, SUBCU, MUSCLE, BONE UPPER EXTREMITY (WRVU 4.1) performed by Jose Branch MDat [facility] MA[facility] OR ? ? PRO DEBRIDEMENT BONE MUSCLE &/FASCIA 20 SQ CM/< Left 02/02/2022 DEBRIDEMENT SKIN, SUBCU, MUSCLE, BONE UPPER EXTREMITY (WRVU 4.1) performed by Hina Starks MD at [facility] MA[facility] OR ? ? PRO DEBRIDEMENT BONE MUSCLE &/FASCIA 20 SQ CM/< Left 02/02/2022 DEBRIDEMENT SKIN, SUBCU, MUSCLE, BONE, LOWER EXTREMITY (WRVU 4.1) performed by Hina Starks MD at [facility] OR ? ? PRO DEBRIDEMENT MUSCLE AND FASCIA 20 SQ CM/< Left 01/26/2022 DEBRIDEMENT SKIN, SUBCU, MUSCLE, LOWER EXTREMITY (WRVU 2.7) performed by Sigifredo Garcia MD at [facility] MA[facility] OR ? ? PRO DEBRIDEMENT MUSCLE AND FASCIA 20 SQ CM/< Left 01/26/2022 DEBRIDEMENT SKIN, SUBCU, MUSCLE, UPPER EXTREMITY (WRVU 2.7) performed by Sigifredo Garcia MD at [facility] OR ? ? PRO DEBRIDEMENT MUSCLE AND FASCIA 20 SQ CM/< Left 02/05/2022 DEBRIDEMENT SKIN, SUBCU, MUSCLE, LOWER EXTREMITY (WRVU 2.7) performed by Tom Valdovinos MD at [facility] OR ? ? PRO DEBRIDEMENT MUSCLE AND FASCIA 20 SQ CM/< Left 02/04/2022 DEBRIDEMENT SKIN, SUBCU, MUSCLE, LOWER EXTREMITY (WRVU 2.7) performed by Sigifredo Garcia MD at [facility] MAIN OR ? ? PRO DEBRIDEMENT MUSCLE AND FASCIA 20 SQ CM/< Left 02/15/2022 DEBRIDEMENT SKIN, SUBCU, MUSCLE, UPPER EXTREMITY (WRVU 2.7) performed by Jayme Armstrong MD at [facility] OR ? ? PRO DEBRIDEMENT MUSCLE AND FASCIA 20 SQ CM/< Left 02/19/2022 DEBRIDEMENT SKIN, SUBCU, MUSCLE, LOWER EXTREMITY (WRVU 2.7) performed by Jayme Armstrong MD at [facility] MA[facility] OR ? ? PRO DEBRIDEMENT MUSCLE AND FASCIA 20 SQ CM/< Left 02/22/2022 DEBRIDEMENT SKIN, SUBCU, MUSCLE, LOWER EXTREMITY (WRVU 2.7) performed by Parrish Betancourt MD at [facility] OR ? ? PRO DEBRIDEMENT MUSCLE AND FASCIA 20 SQ CM/< Left 02/24/2022 DEBRIDEMENT SKIN, SUBCU, MUSCLE, LOWER EXTREMITY (WRVU 2.7) performed by Parrish Betancourt MD at [facility] OR ? ? PRO DEBRIDEMENT MUSCLE AND FASCIA 20 SQ CM/< Left 02/26/2022 DEBRIDEMENT SKIN, SUBCU, MUSCLE, UPPER EXTREMITY (WRVU 2.7) performed by Parrish Betancourt MD at [facility] OR ? ? PRO DEBRIDEMENT SUBCUTANEOUS TISSUE 20 SQCM/< Left 02/04/2022 DEBRIDEMENT SKIN AND SUBCU, UPPER EXTREMITY (WRVU 1.01) performed [facility] ? ? PRO DEBRIDEMENT SUBCUTANEOUS TISSUE 20 SQCM/< Left 02/08/2022 DEBRIDEMENT SKIN AND SUBCU, LOWER EXTREMITY (WRVU 1.01) performed by Jeanette Chatterjee MD at [facility] OR ? ? PRO DEBRIDEMENT SUBCUTANEOUS TISSUE 20 SQCM/< Left 02/09/2022 DEBRIDEMENT SKIN AND SUBCU, LOWER EXTREMITY (WRVU 1.01) performed by Jeanette Chatterjee MD at [facility] OR ? ? PRO DEBRIDEMENT SUBCUTANEOUS TISSUE 20 SQCM/< Left 02/11/2022 DEBRIDEMENT SKIN AND SUBCU, LOWER EXTREMITY (WRVU 1.01) performed by Parrish Betancourt MD at [facility] OR ? ? PRO DEBRIDEMENT SUBCUTANEOUS TISSUE 20 SQCM/< Left 02/13/2022 DEBRIDEMENT SKIN AND SUBCU, LOWER EXTREMITY (WRVU 1.01) performed by Jeanette Chatterjee MD at [facility] OR ? ? PRO DEBRIDEMENT SUBCUTANEOUS TISSUE 20 SQCM/< Left 02/15/2022 DEBRIDEMENT SKIN AND SUBCU, LOWER EXTREMITY (WRVU 1.01) performed by Jayme Armstrong MD at [facility] OR ? ? PRO DEBRIDEMENT SUBCUTANEOUS TISSUE 20 SQCM/< Left 02/17/2022 DEBRIDEMENT SKIN AND SUBCU, LOWER EXTREMITY (WRVU 1.01) performed by Jayme Armstrong MD at [facility] OR ??? PRO DECOMP FOREARM, 2 COMPART, W/O DEBRIDE Left 01/23/2022 FASCIOTOMY; FOREARM AND\OR WRIST, FLEXOR & EXTENS. COMP (WRVU 10.79) performed by Sigifredo Garcia MD at [facility] OR ??? PRO DECOMPRESS ANT/LAT+POST LEG CMPART Left 01/23/2022 FASCIOTOMY, LOWER LEG, ALL COMPARTMENTS (WRVU 7.82) performed by Sigifredo Garcia MD at [facility] OR ??? PRO DRESSING CHANGE UNDER ANESTHESIA Left 02/11/2022 DRESSING CHANGE (FOR OTHER THAN GALLOWAY) UNDER ANES., UPPER EXTREMITY (WRVU 0.86) performed by Parrish Betancourt MD at [facility] OR ??? PRO DRESSING CHANGE UNDER ANESTHESIA Left 02/13/2022 DRESSING CHANGE (FOR OTHER THAN GALLOWAY) UNDER ANES., UPPER EXTREMITY (WRVU 0.86) performed by Jeanette Chatterjee MD at [facility] OR ??? PRO DRESSING CHANGE UNDER ANESTHESIA Left 02/17/2022 DRESSING CHANGE (FOR OTHER THAN GALLOWAY) UNDER ANES., UPPER EXTREMITY (WRVU 0.86) performed by Jayme Armstrong MD at [facility] OR ??? PRO DRESSING CHANGE UNDER ANESTHESIA Left 02/19/2022 DRESSING CHANGE (FOR OTHER THAN GALLOWAY) UNDER ANES., UPPER EXTREMITY (WRVU 0.86) performed by Jayme Armstrong MD at [facility] OR ??? PRO DRESSING CHANGE UNDER ANESTHESIA Left 02/22/2022 DRESSING CHANGE (FOR OTHER THAN GALLOWAY) UNDER ANES., UPPER EXTREMITY (WRVU 0.86) performed by Parrish Betancourt MD at [facility] OR ??? PRO DRESSING CHANGE UNDER ANESTHESIA Left 02/24/2022 DRESSING CHANGE (FOR OTHER THAN GALLOWAY) UNDER ANES., UPPER EXTREMITY (WRVU 0.86) performed by Parrish Betancourt MD at [facility] OR ??? PRO DRESSING CHANGE UNDER ANESTHESIA Left 02/26/2022 DRESSING CHANGE (FOR OTHER THAN GALLOWAY) UNDER ANES., LOWER EXTREMITY (WRVU 0.86) performed by Parrish Betancourt MD at [facility] OR ??? PRO DRESSING CHANGE UNDER ANESTHESIA Left 02/26/2022 DRESSING CHANGE (FOR OTHER THAN GALLOWAY) UNDER ANES., UPPER EXTREMITY (WRVU 0.86) performed by Parrish Betancourt MD at [facility] OR ??? PRO DRESSING CHANGE UNDER ANESTHESIA Left 03/01/2022 DRESSING CHANGE (FOR OTHER THAN GALLOWAY) UNDER ANES., LOWER EXTREMITY (WRVU 0.86) performed by Willie Sanabria MD at [facility] OR ??? PRO DRESSING CHANGE UNDER ANESTHESIA N/A 03/01/2022 DRESSING CHANGE (FOR OTHER THAN GALLOWAY) UNDER ANES., UPPER EXTREMITY (WRVU 0.86) performed by Willie Saanbria MD at [facility] OR ? ? PRO I&D DEEP ABSCESS BURSA/HEMATOMA THIGH/KNEE REGION Left 02/06/2022 INCISION & DRAINAGE ABSCESS OR HEMATOMA, THIGH, KNEE SUPERFICIAL (WRVU 6.78) performed by Jayme Armstrong MD at [facility] OR ??? PRO INCIS OF HIP/THIGH FASCIA Left 01/23/2022 @FASCIOTOMY,THIGH OR HIP FOR COMPARTMENT SYNDROME (WRVU 12.89) performed by Sigifredo Garcia MD at [facility] OR ??? PRO NEGATIVE PRESSURE WOUND THERAPY, LESS THAN OR EQUAL TO 50 SQCM Left 02/05/2022 DRESSING CHANGE (VAC ASSISTED) UP TO 50SQ.CM (WRVU 0.55) performed by Orville Hennessy MD at [facility] OR ??? PRO NEGATIVE PRESSURE WOUND THERAPY, LESS THAN OR EQUAL TO 50 SQCM Left 02/05/2022 DRESSING CHANGE (VAC ASSISTED) UP TO 50SQ.CM (WRVU 0.55) performed by Tom Valdovinos MD at [facility] OR ??? PRO NEGATIVE PRESSURE WOUND THERAPY, LESS THAN OR EQUAL TO 50 SQCM Left 02/08/2022 DRESSING CHANGE (VAC ASSISTED) UP TO 50SQ.CM (WRVU 0.55) performed by Jeanette Chatterjee MD at [facility] MAIN OR ??? PRO OPEN TREAT MANDIBLE CONDYLE FX, COMPL 04/27/2013 OPEN TREATMENT, COMPLEX MANDIBLE FX., MULTI APPROACH, W/ FIXATION performed by Kishore Neil MD at [facility] MAIN OR ??? PRO REVISE MEDIAN N/CARPAL TUNNEL SURG Left 01/23/2022 MEDIAN NERVE DECOMPRESSION (CARPAL TUNNEL RELEASE) (WRVU 4.97) performed by Sigifredo Garcia MD at [facility] MAIN OR ??? PRO SEC CLSR SURG WOUND/DEHSN EXTENSIVE/COMPLICATED Left 01/26/2022 SECONDARY CLOSURE SURGICAL WOUND OR DEHISCENCE, EXTENSIVE OR COMPLICATED, UPPER EXTREMITY (WRVU 12.04) performed by Sigifredo Garcia MD at [facility] MAIN OR MEDICATIONS: No current facility-administered [...] Jenkins MD - 03/01/2022 5:58 AM EDT [facility] Acute Care Surgery H&P HPI and [...] Arteriogram Lower Extremity 02/06/2022 Nicole Vivas MD [facility] RAD ??? PRO DEBRIDEMENT BONE EA ADDL 20 SQCM 02/08/2022 EACH ADDITIONAL 20 SQ CM, OR PART THEREOF (WRVU 1.8) performed by Jeanette Chatterjee MD at [facility] ? ? PRO DEBRIDEMENT BONE MUSCLE &/FASCIA 20 SQ CM/< Left 01/29/2022 DEBRIDEMENT SKIN, SUBCU, MUSCLE, BONE, LOWER EXTREMITY (WRVU 4.1) performed by Tom Valdovinos MD [facility] MAIN OR ? ? PRO DEBRIDEMENT BONE MUSCLE &/FASCIA 20 SQ CM/< Left 01/31/2022 DEBRIDEMENT SKIN, SUBCU, MUSCLE, BONE, LOWER EXTREMITY (WRVU 4.1) performed by Jose Branch MD at [facility] MAIN OR ? ? PRO DEBRIDEMENT BONE MUSCLE &/FASCIA 20 SQ CM/< Left 01/31/2022 DEBRIDEMENT SKIN, SUBCU, MUSCLE, BONE UPPER EXTREMITY (WRVU 4.1) performed by Jose Branch MDat [facility] MAIN OR ? ? PRO DEBRIDEMENT BONE MUSCLE &/FASCIA 20 SQ CM/< Left 02/02/2022 DEBRIDEMENT SKIN, SUBCU, MUSCLE, BONE UPPER EXTREMITY (WRVU 4.1) performed by Hina Starks MD at [facility] MAIN OR ? ? PRO DEBRIDEMENT BONE MUSCLE &/FASCIA 20 SQ CM/< Left 02/02/2022 DEBRIDEMENT SKIN, SUBCU, MUSCLE, BONE, LOWER EXTREMITY (WRVU 4.1) performed by Hina Starks MD at [facility] MA[facility] OR ? ? PRO DEBRIDEMENT MUSCLE AND FASCIA 20 SQ CM/< Left 01/26/2022 DEBRIDEMENT SKIN, SUBCU, MUSCLE, LOWER EXTREMITY (WRVU 2.7) performed by Sigifredo Garcia MD at [facility] OR ? ? PRO DEBRIDEMENT MUSCLE AND FASCIA 20 SQ CM/< Left 01/26/2022 DEBRIDEMENT SKIN, SUBCU, MUSCLE, UPPER EXTREMITY (WRVU 2.7) performed by Sigifredo Garcia MD at [facility] OR ? ? PRO DEBRIDEMENT MUSCLE AND FASCIA 20 SQ CM/< Left 02/05/2022 DEBRIDEMENT SKIN, SUBCU, MUSCLE, LOWER EXTREMITY (WRVU 2.7) performed by Tom Valdovinos MD at [facility] OR ? ? PRO DEBRIDEMENT MUSCLE AND FASCIA 20 SQ CM/< Left 02/04/2022 DEBRIDEMENT SKIN, SUBCU, MUSCLE, LOWER EXTREMITY (WRVU 2.7) performed by Sigifredo Garcia MD at [facility] OR ? ? PRO DEBRIDEMENT MUSCLE AND FASCIA 20 SQ CM/< Left 02/15/2022 DEBRIDEMENT SKIN, SUBCU, MUSCLE, UPPER EXTREMITY (WRVU 2.7) performed by Jayme Armstrong MD at [facility] OR ? ? PRO DEBRIDEMENT MUSCLE AND FASCIA 20 SQ CM/< Left 02/19/2022 DEBRIDEMENT SKIN, SUBCU, MUSCLE, LOWER EXTREMITY (WRVU 2.7) performed by Jayme Armstrong MD at [facility] OR ? ? PRO DEBRIDEMENT MUSCLE AND FASCIA 20 SQ CM/< Left 02/22/2022 DEBRIDEMENT SKIN, SUBCU, MUSCLE, LOWER EXTREMITY (WRVU 2.7) performed by Parrish Betancourt MD at [facility] OR ? ? PRO DEBRIDEMENT MUSCLE AND FASCIA 20 SQ CM/< Left 02/24/2022 DEBRIDEMENT SKIN, SUBCU, MUSCLE, LOWER EXTREMITY (WRVU 2.7) performed by Parrish Betancourt MD at [facility] OR ? ? PRO DEBRIDEMENT MUSCLE AND FASCIA 20 SQ CM/< Left 02/26/2022 DEBRIDEMENT SKIN, SUBCU, MUSCLE, UPPER EXTREMITY (WRVU 2.7) performed by Parrish Betancourt MD at [facility] OR ? ? PRO DEBRIDEMENT SUBCUTANEOUS TISSUE 20 SQCM/< Left 02/04/2022 DEBRIDEMENT SKIN AND SUBCU, UPPER EXTREMITY (WRVU 1.01) performed [facility] ? ? PRO DEBRIDEMENT SUBCUTANEOUS TISSUE 20 SQCM/< Left 02/08/2022 DEBRIDEMENT SKIN AND SUBCU, LOWER EXTREMITY (WRVU 1.01) performed by Jeanette Chatterjee MD at [facility] OR ? ? PRO DEBRIDEMENT SUBCUTANEOUS TISSUE 20 SQCM/< Left 02/09/2022 DEBRIDEMENT SKIN AND SUBCU, LOWER EXTREMITY (WRVU 1.01) performed by Jeanette Chatterjee MD at [facility] OR ? ? PRO DEBRIDEMENT SUBCUTANEOUS TISSUE 20 SQCM/< Left 02/11/2022 DEBRIDEMENT SKIN AND SUBCU, LOWER EXTREMITY (WRVU 1.01) performed by Parrish Betancourt MD at [facility] OR ? ? PRO DEBRIDEMENT SUBCUTANEOUS TISSUE 20 SQCM/< Left 02/13/2022 DEBRIDEMENT SKIN AND SUBCU, LOWER EXTREMITY (WRVU 1.01) performed by Jeanette Chatterjee MD at [facility] OR ? ? PRO DEBRIDEMENT SUBCUTANEOUS TISSUE 20 SQCM/< Left 02/15/2022 DEBRIDEMENT SKIN AND SUBCU, LOWER EXTREMITY (WRVU 1.01) performed by Jayme Armstrong MD at [facility] OR ? ? PRO DEBRIDEMENT SUBCUTANEOUS TISSUE 20 SQCM/< Left 02/17/2022 DEBRIDEMENT SKIN AND SUBCU, LOWER EXTREMITY (WRVU 1.01) performed by Jayme Armstrong MD at [facility] OR ??? PRO DECOMP FOREARM, 2 COMPART, W/O DEBRIDE Left 01/23/2022 FASCIOTOMY; FOREARM AND\OR WRIST, FLEXOR & EXTENS. COMP (WRVU 10.79) performed by Sigifredo Garcia MD at [facility] OR ??? PRO DECOMPRESS ANT/LAT+POST LEG CMPART Left 01/23/2022 FASCIOTOMY, LOWER LEG, ALL COMPARTMENTS (WRVU 7.82) performed by Sigifredo Garcia MD at [facility] OR ??? PRO DRESSING CHANGE UNDER ANESTHESIA Left 02/11/2022 DRESSING CHANGE (FOR OTHER THAN GALLOWAY) UNDER ANES., UPPER EXTREMITY (WRVU 0.86) performed by Parrish Betancourt MD at [facility] OR ??? PRO DRESSING CHANGE UNDER ANESTHESIA Left 02/13/2022 DRESSING CHANGE (FOR OTHER THAN GALLOWAY) UNDER ANES., UPPER EXTREMITY (WRVU 0.86) performed by Jeanette Chatterjee MD at [facility] OR ??? PRO DRESSING CHANGE UNDER ANESTHESIA Left 02/17/2022 DRESSING CHANGE (FOR OTHER THAN GALLOWAY) UNDER ANES., UPPER EXTREMITY (WRVU 0.86) performed by Jayme Armstrong MD at [facility] OR ??? PRO DRESSING CHANGE UNDER ANESTHESIA Left 02/19/2022 DRESSING CHANGE (FOR OTHER THAN GALLOWAY) UNDER ANES., UPPER EXTREMITY (WRVU 0.86) performed by Jayme Armstrong MD at [facility] OR ??? PRO DRESSING CHANGE UNDER ANESTHESIA Left 02/22/2022 DRESSING CHANGE (FOR OTHER THAN GALLOWAY) UNDER ANES., UPPER EXTREMITY (WRVU 0.86) performed by Parrish Betancourt MD at [facility] OR ??? PRO DRESSING CHANGE UNDER ANESTHESIA Left 02/24/2022 DRESSING CHANGE (FOR OTHER THAN GALLOWAY) UNDER ANES., UPPER EXTREMITY (WRVU 0.86) performed by Parrish Betancourt MD at [facility] OR ??? PRO DRESSING CHANGE UNDER ANESTHESIA Left 02/26/2022 DRESSING CHANGE (FOR OTHER THAN GALLOWAY) UNDER ANES., LOWER EXTREMITY (WRVU 0.86) performed by Parrish Betancourt MD at [facility] OR ??? PRO DRESSING CHANGE UNDER ANESTHESIA Left 02/26/2022 DRESSING CHANGE (FOR OTHER THAN GALLOWAY) UNDER ANES., UPPER EXTREMITY (WRVU 0.86) performed by Parrish Betancourt MD at [facility] OR ? ? PRO I&D DEEP ABSCESS BURSA/HEMATOMA THIGH/KNEE REGION Left 02/06/2022 INCISION & DRAINAGE ABSCESS OR HEMATOMA, THIGH, KNEE SUPERFICIAL (WRVU 6.78) performed by Jayme Armstrong MD at [facility] OR ??? PRO INCIS OF HIP/THIGH FASCIA Left 01/23/2022 @FASCIOTOMY,THIGH OR HIP FOR COMPARTMENT SYNDROME (WRVU 12.89) performed by Sigifredo Garcia MD at [facility] OR ??? PRO NEGATIVE PRESSURE WOUND THERAPY, LESS THAN OR EQUAL TO 50 SQCM Left 02/05/2022 DRESSING CHANGE (VAC ASSISTED) UP TO 50SQ.CM (WRVU 0.55) performed by Orville Hennessy MD at [facility] OR ??? PRO NEGATIVE PRESSURE WOUND THERAPY, LESS THAN OR EQUAL TO 50 SQCM Left 02/05/2022 DRESSING CHANGE (VAC ASSISTED) UP TO 50SQ.CM (WRVU 0.55) performed by Tom Valdovinos MD at [facility] OR ??? PRO NEGATIVE PRESSURE WOUND THERAPY, LESS THAN OR EQUAL TO 50 SQCM Left 02/08/2022 DRESSING CHANGE (VAC ASSISTED) UP TO 50SQ.CM (WRVU 0.55) performed by Jeanette Chatterjee MD at [facility] OR ??? PRO OPEN TREAT MANDIBLE CONDYLE FX, COMPL 04/27/2013 OPEN TREATMENT, COMPLEX MANDIBLE FX., MULTI APPROACH, W/ FIXATION performed by Kishore Neil MD at [facility] OR ??? PRO REVISE MEDIAN N/CARPAL TUNNEL SURG Left 01/23/2022 MEDIAN NERVE DECOMPRESSION (CARPAL TUNNEL RELEASE) (WRVU 4.97) performed by Sigifredo Garcia MD [facility] [facility] MAIN OR ??? PRO SEC CLSR SURG WOUND/DEHSN EXTENSIVE/COMPLICATED Left 01/26/2022 SECONDARY CLOSURE SURGICAL WOUND OR DEHISCENCE, EXTENSIVE OR COMPLICATED, UPPER EXTREMITY (WRVU 12.04) performed by Sigifredo Garcia MD at [facility] MAIN OR MEDICATIONS: No current facility-administered [...] date: 01/23/2022 Attending Physician: Allison Kelly MD [facility] General Surgery History and Physical Alix [...] Arteriogram Lower Extremity 02/06/2022 Nicole Vivas MD [facility] INTERVENTIONL RAD ??? PRO DEBRIDEMENT BONE EA ADDL 20 SQCM 02/08/2022 EACH ADDITIONAL 20 SQ CM, OR PART THEREOF (WRVU 1.8) performed by Jeanette Chatterjee MD at [facility] ? ? PRO DEBRIDEMENT BONE MUSCLE &/FASCIA 20 SQ CM/< Left 01/29/2022 DEBRIDEMENT SKIN, SUBCU, MUSCLE, BONE, LOWER EXTREMITY (WRVU 4.1) performed by Tom Valdovinos MD [facility] MAIN OR ? ? PRO DEBRIDEMENT BONE MUSCLE &/FASCIA 20 SQ CM/< Left 01/31/2022 DEBRIDEMENT SKIN, SUBCU, MUSCLE, BONE, LOWER EXTREMITY (WRVU 4.1) performed by Jose Branch MD at [facility] MAIN OR ? ? PRO DEBRIDEMENT BONE MUSCLE &/FASCIA 20 SQ CM/< Left 01/31/2022 DEBRIDEMENT SKIN, SUBCU, MUSCLE, BONE UPPER EXTREMITY (WRVU 4.1) performed by Jose Branch MDat [facility] MAIN OR ? ? PRO DEBRIDEMENT BONE MUSCLE &/FASCIA 20 SQ CM/< Left 02/02/2022 DEBRIDEMENT SKIN, SUBCU, MUSCLE, BONE UPPER EXTREMITY (WRVU 4.1) performed by Hina Starks MD at [facility] OR ? ? PRO DEBRIDEMENT BONE MUSCLE &/FASCIA 20 SQ CM/< Left 02/02/2022 DEBRIDEMENT SKIN, SUBCU, MUSCLE, BONE, LOWER EXTREMITY (WRVU 4.1) performed by Hina Starks MD at [facility] MAIN OR ? ? PRO DEBRIDEMENT MUSCLE AND FASCIA 20 SQ CM/< Left 01/26/2022 DEBRIDEMENT SKIN, SUBCU, MUSCLE, LOWER EXTREMITY (WRVU 2.7) performed by Sigifredo Garcia MD at [facility] MAIN OR ? ? PRO DEBRIDEMENT MUSCLE AND FASCIA 20 SQ CM/< Left 01/26/2022 DEBRIDEMENT SKIN, SUBCU, MUSCLE, UPPER EXTREMITY (WRVU 2.7) performed by Sigifredo Garcia MD at [facility] MAIN OR ? ? PRO DEBRIDEMENT MUSCLE AND FASCIA 20 SQ CM/< Left 02/05/2022 DEBRIDEMENT SKIN, SUBCU, MUSCLE, LOWER EXTREMITY (WRVU 2.7) performed by Tom Valdovinos MD at [facility] OR ? ? PRO DEBRIDEMENT MUSCLE AND FASCIA 20 SQ CM/< Left 02/04/2022 DEBRIDEMENT SKIN, SUBCU, MUSCLE, LOWER EXTREMITY (WRVU 2.7) performed by Sigifredo Garcia MD at [facility] MAIN OR ? ? PRO DEBRIDEMENT MUSCLE AND FASCIA 20 SQ CM/< Left 02/15/2022 DEBRIDEMENT SKIN, SUBCU, MUSCLE, UPPER EXTREMITY (WRVU 2.7) performed by Jayme Armstrong MD at [facility] OR ? ? PRO DEBRIDEMENT MUSCLE AND FASCIA 20 SQ CM/< Left 02/19/2022 DEBRIDEMENT SKIN, SUBCU, MUSCLE, LOWER EXTREMITY (WRVU 2.7) performed by Jayme Armstrong MD at [facility] OR ? ? PRO DEBRIDEMENT MUSCLE AND FASCIA 20 SQ CM/< Left 02/22/2022 DEBRIDEMENT SKIN, SUBCU, MUSCLE, LOWER EXTREMITY (WRVU 2.7) performed by Parrish Betancourt MD at [facility] OR ? ? PRO DEBRIDEMENT MUSCLE AND FASCIA 20 SQ CM/< Left 02/24/2022 DEBRIDEMENT SKIN, SUBCU, MUSCLE, LOWER EXTREMITY (WRVU 2.7) performed by Parrish Betancourt MD at [facility] OR ? ? PRO DEBRIDEMENT SUBCUTANEOUS TISSUE 20 SQCM/< Left 02/04/2022 DEBRIDEMENT SKIN AND SUBCU, UPPER EXTREMITY (WRVU 1.01) [facility] ? ? PRO DEBRIDEMENT SUBCUTANEOUS TISSUE 20 SQCM/< Left 02/08/2022 DEBRIDEMENT SKIN AND SUBCU, LOWER EXTREMITY (WRVU 1.01) performed by Jeanette Chatterjee MD at [facility] OR ? ? PRO DEBRIDEMENT SUBCUTANEOUS TISSUE 20 SQCM/< Left 02/09/2022 DEBRIDEMENT SKIN AND SUBCU, LOWER EXTREMITY (WRVU 1.01) performed by Jeanette Chatterjee MD at [facility] OR ? ? PRO DEBRIDEMENT SUBCUTANEOUS TISSUE 20 SQCM/< Left 02/11/2022 DEBRIDEMENT SKIN AND SUBCU, LOWER EXTREMITY (WRVU 1.01) performed by Parrish Betancourt MD at [facility] OR ? ? PRO DEBRIDEMENT SUBCUTANEOUS TISSUE 20 SQCM/< Left 02/13/2022 DEBRIDEMENT SKIN AND SUBCU, LOWER EXTREMITY (WRVU 1.01) performed by Jeanette Chatterjee MD at [facility] OR ? ? PRO DEBRIDEMENT SUBCUTANEOUS TISSUE 20 SQCM/< Left 02/15/2022 DEBRIDEMENT SKIN AND SUBCU, LOWER EXTREMITY (WRVU 1.01) performed by Jayme Armstrong MD at [facility] OR ? ? PRO DEBRIDEMENT SUBCUTANEOUS TISSUE 20 SQCM/< Left 02/17/2022 DEBRIDEMENT SKIN AND SUBCU, LOWER EXTREMITY (WRVU 1.01) [facility] ??? PRO DECOMP FOREARM, 2 COMPART, W/O DEBRIDE Left 01/23/2022 FASCIOTOMY; FOREARM AND\OR WRIST, FLEXOR & EXTENS. COMP (WRVU 10.79) performed by Sigifredo Garcia MD at [facility] OR ??? PRO DECOMPRESS ANT/LAT+POST LEG CMPART Left 01/23/2022 FASCIOTOMY, LOWER LEG, ALL COMPARTMENTS (WRVU 7.82) performed by Sigifredo Garcia MD at [facility] OR ??? PRO DRESSING CHANGE UNDER ANESTHESIA Left 02/11/2022 DRESSING CHANGE (FOR OTHER THAN GALLOWAY) UNDER ANES., UPPER EXTREMITY (WRVU 0.86) performed by Parrish Betancourt MD at [facility] OR ??? PRO DRESSING CHANGE UNDER ANESTHESIA Left 02/13/2022 DRESSING CHANGE (FOR OTHER THAN GALLOWAY) UNDER ANES., UPPER EXTREMITY (WRVU 0.86) performed by Jeanette Chatterjee MD at [facility] OR ??? PRO DRESSING CHANGE UNDER ANESTHESIA Left 02/17/2022 DRESSING CHANGE (FOR OTHER THAN GALLOWAY) UNDER ANES., UPPER EXTREMITY (WRVU 0.86) performed by Jayme Armstrong MD at [facility] OR ??? PRO DRESSING CHANGE UNDER ANESTHESIA Left 02/19/2022 DRESSING CHANGE (FOR OTHER THAN GALLOWAY) UNDER ANES., UPPER EXTREMITY (WRVU 0.86) performed by Jayme Armstrong MD at [facility] OR ??? PRO DRESSING CHANGE UNDER ANESTHESIA Left 02/22/2022 DRESSING CHANGE (FOR OTHER THAN GALLOWAY) UNDER ANES., UPPER EXTREMITY (WRVU 0.86) performed by Parrish Betancourt MD at [facility] OR ??? PRO DRESSING CHANGE UNDER ANESTHESIA Left 02/24/2022 DRESSING CHANGE (FOR OTHER THAN GALLOWAY) UNDER ANES., UPPER EXTREMITY (WRVU 0.86) performed by Parrish Betancourt MD at [facility] OR ? ? PRO I&D DEEP ABSCESS BURSA/HEMATOMA THIGH/KNEE REGION Left 02/06/2022 INCISION & DRAINAGE ABSCESS OR HEMATOMA, THIGH, KNEE SUPERFICIAL (WRVU 6.78) performed by Jayme Armstrong MD at [facility] OR ??? PRO INCIS OF HIP/THIGH FASCIA Left 01/23/2022 @FASCIOTOMY,THIGH OR HIP FOR COMPARTMENT SYNDROME (WRVU 12.89) performed by Sigifredo Garcia MD at [facility] OR ??? PRO NEGATIVE PRESSURE WOUND THERAPY, LESS THAN OR EQUAL TO 50 SQCM Left 02/05/2022 DRESSING CHANGE (VAC ASSISTED) UP TO 50SQ.CM (WRVU 0.55) performed by Orville Hennessy MD at [facility] OR ??? PRO NEGATIVE PRESSURE WOUND THERAPY, LESS THAN OR EQUAL TO 50 SQCM Left 02/05/2022 DRESSING CHANGE (VAC ASSISTED) UP TO 50SQ.CM (WRVU 0.55) performed by Tom Valdovinos MD at [facility] OR ??? PRO NEGATIVE PRESSURE WOUND THERAPY, LESS THAN OR EQUAL TO 50 SQCM Left 02/08/2022 DRESSING CHANGE (VAC ASSISTED) UP TO 50SQ.CM (WRVU 0.55) performed by Jeanette Chatterjee MD at [facility] OR ??? PRO OPEN TREAT MANDIBLE CONDYLE FX, COMPL 04/27/2013 OPEN TREATMENT, COMPLEX MANDIBLE FX., MULTI APPROACH, W/ FIXATION performed by Kishore Neil MD at [facility] OR ??? PRO REVISE MEDIAN N/CARPAL TUNNEL SURG Left 01/23/2022 MEDIAN NERVE DECOMPRESSION (CARPAL TUNNEL RELEASE) (WRVU 4.97) performed by Sigifredo Garcia MD at [facility] OR ??? PRO SEC CLSR SURG WOUND/DEHSN EXTENSIVE/COMPLICATED Left 01/26/2022 SECONDARY CLOSURE SURGICAL WOUND OR DEHISCENCE, EXTENSIVE OR COMPLICATED, UPPER EXTREMITY (WRVU 12.04) performed by Sigifredo Garcia MD at [facility] OR Current Facility-Administered Medications: ??? epoetin salina-epbx (Retacrit) injection 20,000 units/mL 16,000 Units, 16,000 Units, Subcutaneous,Weekly, Nancy Chahal MD, 16,000 Units at 02/25/22 1008 ??? amLODIPine (Norvasc) tablet 10 mg, 10 [...] date: 01/23/2022 Attending Physician: Allison Kelly MD [facility] General Surgery History and Physical Alix [...] Arteriogram Lower Extremity 02/06/2022 Nicole Vivas MD [facility] INTERVENTIONL RAD ??? PRO DEBRIDEMENT BONE EA ADDL 20 SQCM 02/08/2022 EACH ADDITIONAL 20 SQ CM, OR PART THEREOF (WRVU 1.8) performed by Jeanette Chatterjee MD at [facility] ? ? PRO DEBRIDEMENT BONE MUSCLE &/FASCIA 20 SQ CM/< Left 01/29/2022 DEBRIDEMENT SKIN, SUBCU, MUSCLE, BONE, LOWER EXTREMITY (WRVU 4.1) performed by Tom Valdovinos MD [facility] MAIN OR ? ? PRO DEBRIDEMENT BONE MUSCLE &/FASCIA 20 SQ CM/< Left 01/31/2022 DEBRIDEMENT SKIN, SUBCU, MUSCLE, BONE, LOWER EXTREMITY (WRVU 4.1) performed by Jose Branch MD at [facility] MAIN OR ? ? PRO DEBRIDEMENT BONE MUSCLE &/FASCIA 20 SQ CM/< Left 01/31/2022 DEBRIDEMENT SKIN, SUBCU, MUSCLE, BONE UPPER EXTREMITY (WRVU 4.1) performed by Jose Branch MDat [facility] MAIN OR ? ? PRO DEBRIDEMENT BONE MUSCLE &/FASCIA 20 SQ CM/< Left 02/02/2022 DEBRIDEMENT SKIN, SUBCU, MUSCLE, BONE UPPER EXTREMITY (WRVU 4.1) performed by Hina Starks MD at [facility] MAIN OR ? ? PRO DEBRIDEMENT BONE MUSCLE &/FASCIA 20 SQ CM/< Left 02/02/2022 DEBRIDEMENT SKIN, SUBCU, MUSCLE, BONE, LOWER EXTREMITY (WRVU 4.1) performed by Hina Starks MD at [facility] MAIN OR ? ? PRO DEBRIDEMENT MUSCLE AND FASCIA 20 SQ CM/< Left 01/26/2022 DEBRIDEMENT SKIN, SUBCU, MUSCLE, LOWER EXTREMITY (WRVU 2.7) performed by Sigifredo Garcia MD at [facility] OR ? ? PRO DEBRIDEMENT MUSCLE AND FASCIA 20 SQ CM/< Left 01/26/2022 DEBRIDEMENT SKIN, SUBCU, MUSCLE, UPPER EXTREMITY (WRVU 2.7) performed by Sigifredo Garcia MD at [facility] OR ? ? PRO DEBRIDEMENT MUSCLE AND FASCIA 20 SQ CM/< Left 02/05/2022 DEBRIDEMENT SKIN, SUBCU, MUSCLE, LOWER EXTREMITY (WRVU 2.7) performed by Tom Valdovinos MD at [facility] OR ? ? PRO DEBRIDEMENT MUSCLE AND FASCIA 20 SQ CM/< Left 02/04/2022 DEBRIDEMENT SKIN, SUBCU, MUSCLE, LOWER EXTREMITY (WRVU 2.7) performed by Sigifredo Garcia MD at [facility] OR ? ? PRO DEBRIDEMENT MUSCLE AND FASCIA 20 SQ CM/< Left 02/15/2022 DEBRIDEMENT SKIN, SUBCU, MUSCLE, UPPER EXTREMITY (WRVU 2.7) performed by Jayme Armstrong MD at [facility] OR ? ? PRO DEBRIDEMENT MUSCLE AND FASCIA 20 SQ CM/< Left 02/19/2022 DEBRIDEMENT SKIN, SUBCU, MUSCLE, LOWER EXTREMITY (WRVU 2.7) performed by Jayme Armstrong MD at [facility] OR ? ? PRO DEBRIDEMENT MUSCLE AND FASCIA 20 SQ CM/< Left 02/22/2022 DEBRIDEMENT SKIN, SUBCU, MUSCLE, LOWER EXTREMITY (WRVU 2.7) performed by Parrish Betancourt MD at [facility] OR ? ? PRO DEBRIDEMENT SUBCUTANEOUS TISSUE 20 SQCM/< Left 02/04/2022 DEBRIDEMENT SKIN AND SUBCU, UPPER EXTREMITY (WRVU 1.01) [facility] ? PRO DEBRIDEMENT SUBCUTANEOUS TISSUE 20 SQCM/< Left 02/08/2022 DEBRIDEMENT SKIN AND SUBCU, LOWER EXTREMITY (WRVU 1.01) performed by Jeanette Chatterjee MD at [facility] OR ? ? PRO DEBRIDEMENT SUBCUTANEOUS TISSUE 20 SQCM/< Left 02/09/2022 DEBRIDEMENT SKIN AND SUBCU, LOWER EXTREMITY (WRVU 1.01) performed by Jeanette Chatterjee MD at [facility] OR ? ? PRO DEBRIDEMENT SUBCUTANEOUS TISSUE 20 SQCM/< Left 02/11/2022 DEBRIDEMENT SKIN AND SUBCU, LOWER EXTREMITY (WRVU 1.01) performed by Parrish Betancourt MD at [facility] OR ? ? PRO DEBRIDEMENT SUBCUTANEOUS TISSUE 20 SQCM/< Left 02/13/2022 DEBRIDEMENT SKIN AND SUBCU, LOWER EXTREMITY (WRVU 1.01) performed by Jeanette Chatterjee MD at [facility] OR ? ? PRO DEBRIDEMENT SUBCUTANEOUS TISSUE 20 SQCM/< Left 02/15/2022 DEBRIDEMENT SKIN AND SUBCU, LOWER EXTREMITY (WRVU 1.01) performed by Jayme Armstrong MD at [facility] OR ? ? PRO DEBRIDEMENT SUBCUTANEOUS TISSUE 20 SQCM/< Left 02/17/2022 DEBRIDEMENT SKIN AND SUBCU, LOWER EXTREMITY (WRVU 1.01) performed by Jayme Armstrong MD at [facility] OR ??? PRO DECOMP FOREARM, 2 COMPART, W/O DEBRIDE Left 01/23/2022 FASCIOTOMY; FOREARM AND\OR WRIST, FLEXOR & EXTENS. COMP (WRVU 10.79) performed by Sigifredo Garcia MD at [facility] OR ??? PRO DECOMPRESS ANT/LAT+POST LEG CMPART Left 01/23/2022 FASCIOTOMY, LOWER LEG, ALL COMPARTMENTS (WRVU 7.82) performed by Sigifredo Garcia MD at [facility] OR ??? PRO DRESSING CHANGE UNDER ANESTHESIA Left 02/11/2022 DRESSING CHANGE (FOR OTHER THAN GALLOWAY) UNDER ANES., UPPER EXTREMITY (WRVU 0.86) performed by Parrish Betancourt MD at [facility] OR ??? PRO DRESSING CHANGE UNDER ANESTHESIA Left 02/13/2022 DRESSING CHANGE (FOR OTHER THAN GALLOWAY) UNDER ANES., UPPER EXTREMITY (WRVU 0.86) performed by Jeanette Chatterjee MD at [facility] OR ??? PRO DRESSING CHANGE UNDER ANESTHESIA Left 02/17/2022 DRESSING CHANGE (FOR OTHER THAN GALLOWAY) UNDER ANES., UPPER EXTREMITY (WRVU 0.86) performed by Jayme Armstrong MD at [facility] OR ??? PRO DRESSING CHANGE UNDER ANESTHESIA Left 02/19/2022 DRESSING CHANGE (FOR OTHER THAN GALLOWAY) UNDER ANES., UPPER EXTREMITY (WRVU 0.86) performed by Jayme Armstrong MD at [facility] MAIN OR ??? PRO DRESSING CHANGE UNDER ANESTHESIA Left 02/22/2022 DRESSING CHANGE (FOR OTHER THAN GALLOWAY) UNDER ANES., UPPER EXTREMITY (WRVU 0.86) performed by Parrish Betancourt MD at [facility] MAIN OR ? ? PRO I&D DEEP ABSCESS BURSA/HEMATOMA THIGH/KNEE REGION Left 02/06/2022 INCISION & DRAINAGE ABSCESS OR HEMATOMA, THIGH, KNEE SUPERFICIAL (WRVU 6.78) performed by Jayme Armstrong MD at [facility] OR ??? PRO INCIS OF HIP/THIGH FASCIA Left 01/23/2022 @FASCIOTOMY,THIGH OR HIP FOR COMPARTMENT SYNDROME (WRVU 12.89) performed by Sigifredo Garcia MD at [facility] OR ??? PRO NEGATIVE PRESSURE WOUND THERAPY, LESS THAN OR EQUAL TO 50 SQCM Left 02/05/2022 DRESSING CHANGE (VAC ASSISTED) UP TO 50SQ.CM (WRVU 0.55) performed by Orville Hennessy MD at [facility] OR ??? PRO NEGATIVE PRESSURE WOUND THERAPY, LESS THAN OR EQUAL TO 50 SQCM Left 02/05/2022 DRESSING CHANGE (VAC ASSISTED) UP TO 50SQ.CM (WRVU 0.55) performed by Tom Valdovinos MD at [facility] OR ??? PRO NEGATIVE PRESSURE WOUND THERAPY, LESS THAN OR EQUAL TO 50 SQCM Left 02/08/2022 DRESSING CHANGE (VAC ASSISTED) UP TO 50SQ.CM (WRVU 0.55) performed by Jeanette Chatterjee MD at [facility] OR ??? PRO OPEN TREAT MANDIBLE CONDYLE FX, COMPL 04/27/2013 OPEN TREATMENT, COMPLEX MANDIBLE FX., MULTI APPROACH, W/ FIXATION performed by Kishore Neil MD at [facility] OR ??? PRO REVISE MEDIAN N/CARPAL TUNNEL SURG Left 01/23/2022 MEDIAN NERVE DECOMPRESSION (CARPAL TUNNEL RELEASE) (WRVU 4.97) performed by Sigifredo Garcia MD at [facility] OR ??? PRO SEC CLSR [...] date: 01/23/2022 Attending Physician: Gela Novak MD [facility] General Surgery History and Physical Alix [...] Arteriogram Lower Extremity 02/06/2022 Nicole Vivas MD [facility] INTERVENTIONL RAD ??? PRO DEBRIDEMENT BONE EA ADDL 20 SQCM 02/08/2022 EACH ADDITIONAL 20 SQ CM, OR PART THEREOF (WRVU 1.8) performed by Jeanette Chatterjee MD at [facility] ? ? PRO DEBRIDEMENT BONE MUSCLE &/FASCIA 20 SQ CM/< Left 01/29/2022 DEBRIDEMENT SKIN, SUBCU, MUSCLE, BONE, LOWER EXTREMITY (WRVU 4.1) performed by Tom Valdovinos MD [facility] MAIN OR ? ? PRO DEBRIDEMENT BONE MUSCLE &/FASCIA 20 SQ CM/< Left 01/31/2022 DEBRIDEMENT SKIN, SUBCU, MUSCLE, BONE, LOWER EXTREMITY (WRVU 4.1) performed by Jose Branch MD at [facility] MAIN OR ? ? PRO DEBRIDEMENT BONE MUSCLE &/FASCIA 20 SQ CM/< Left 01/31/2022 DEBRIDEMENT SKIN, SUBCU, MUSCLE, BONE UPPER EXTREMITY (WRVU 4.1) performed by Jose Branch MDat [facility] MAIN OR ? ? PRO DEBRIDEMENT BONE MUSCLE &/FASCIA 20 SQ CM/< Left 02/02/2022 DEBRIDEMENT SKIN, SUBCU, MUSCLE, BONE UPPER EXTREMITY (WRVU 4.1) performed by Hina Starks MD at [facility] MAIN OR ? ? PRO DEBRIDEMENT BONE MUSCLE &/FASCIA 20 SQ CM/< Left 02/02/2022 DEBRIDEMENT SKIN, SUBCU, MUSCLE, BONE, LOWER EXTREMITY (WRVU 4.1) performed by Hina Starks MD at [facility] MAIN OR ? ? PRO DEBRIDEMENT MUSCLE AND FASCIA 20 SQ CM/< Left 01/26/2022 DEBRIDEMENT SKIN, SUBCU, MUSCLE, LOWER EXTREMITY (WRVU 2.7) performed by Sigifredo Garcia MD at [facility] MAIN OR ? ? PRO DEBRIDEMENT MUSCLE AND FASCIA 20 SQ CM/< Left 01/26/2022 DEBRIDEMENT SKIN, SUBCU, MUSCLE, UPPER EXTREMITY (WRVU 2.7) performed by Sigifredo Garcia MD at [facility] MAIN OR ? ? PRO DEBRIDEMENT MUSCLE AND FASCIA 20 SQ CM/< Left 02/05/2022 DEBRIDEMENT SKIN, SUBCU, MUSCLE, LOWER EXTREMITY (WRVU 2.7) performed by Tom Valdovinos MD at [facility] OR ? ? PRO DEBRIDEMENT MUSCLE AND FASCIA 20 SQ CM/< Left 02/04/2022 DEBRIDEMENT SKIN, SUBCU, MUSCLE, LOWER EXTREMITY (WRVU 2.7) performed by Sigifredo Garcia MD at [facility] OR ? ? PRO DEBRIDEMENT MUSCLE AND FASCIA 20 SQ CM/< Left 02/15/2022 DEBRIDEMENT SKIN, SUBCU, MUSCLE, UPPER EXTREMITY (WRVU 2.7) performed by Jayme Armstrong MD at [facility] OR ? ? PRO DEBRIDEMENT MUSCLE AND FASCIA 20 SQ CM/< Left 02/19/2022 DEBRIDEMENT SKIN, SUBCU, MUSCLE, LOWER EXTREMITY (WRVU 2.7) performed by Jayme Armstrong MD at [facility] OR ? ? PRO DEBRIDEMENT SUBCUTANEOUS TISSUE 20 SQCM/< Left 02/04/2022 DEBRIDEMENT SKIN AND SUBCU, UPPER EXTREMITY (WRVU 1.01) [facility] ? ? PRO DEBRIDEMENT SUBCUTANEOUS TISSUE 20 SQCM/< Left 02/08/2022 DEBRIDEMENT SKIN AND SUBCU, LOWER EXTREMITY (WRVU 1.01) performed by Jeanette Chatterjee MD at [facility] OR ? ? PRO DEBRIDEMENT SUBCUTANEOUS TISSUE 20 SQCM/< Left 02/09/2022 DEBRIDEMENT SKIN AND SUBCU, LOWER EXTREMITY (WRVU 1.01) performed by Jeanette Chatterjee MD at [facility] OR ? ? PRO DEBRIDEMENT SUBCUTANEOUS TISSUE 20 SQCM/< Left 02/11/2022 DEBRIDEMENT SKIN AND SUBCU, LOWER EXTREMITY (WRVU 1.01) performed by Parrish Betancourt MD at [facility] OR ? ? PRO DEBRIDEMENT SUBCUTANEOUS TISSUE 20 SQCM/< Left 02/13/2022 DEBRIDEMENT SKIN AND SUBCU, LOWER EXTREMITY (WRVU 1.01) performed by Jeanette Chatterjee MD at [facility] OR ? ? PRO DEBRIDEMENT SUBCUTANEOUS TISSUE 20 SQCM/< Left 02/15/2022 DEBRIDEMENT SKIN AND SUBCU, LOWER EXTREMITY (WRVU 1.01) performed by Jayme Armstrong MD at [facility] OR ? ? PRO DEBRIDEMENT SUBCUTANEOUS TISSUE 20 SQCM/< Left 02/17/2022 DEBRIDEMENT SKIN AND SUBCU, LOWER EXTREMITY (WRVU 1.01) [facility] ??? PRO DECOMP FOREARM, 2 COMPART, W/O DEBRIDE Left 01/23/2022 FASCIOTOMY; FOREARM AND\OR WRIST, FLEXOR & EXTENS. COMP (WRVU 10.79) performed by Sigifredo Garcia MD at [facility] OR ??? PRO DECOMPRESS ANT/LAT+POST LEG CMPART Left 01/23/2022 FASCIOTOMY, LOWER LEG, ALL COMPARTMENTS (WRVU 7.82) performed by Sigifredo Garcia MD at [facility] OR ??? PRO DRESSING CHANGE UNDER ANESTHESIA Left 02/11/2022 DRESSING CHANGE (FOR OTHER THAN GALLOWAY) UNDER ANES., UPPER EXTREMITY (WRVU 0.86) performed by Parrish Betancourt MD at [facility] OR ??? PRO DRESSING CHANGE UNDER ANESTHESIA Left 02/13/2022 DRESSING CHANGE (FOR OTHER THAN GALLOWAY) UNDER ANES., UPPER EXTREMITY (WRVU 0.86) performed by Jeanette Chatterjee MD at [facility] OR ??? PRO DRESSING CHANGE UNDER ANESTHESIA Left 02/17/2022 DRESSING CHANGE (FOR OTHER THAN GALLOWAY) UNDER ANES., UPPER EXTREMITY (WRVU 0.86) performed by Jayme Armstrong MD at [facility] OR ??? PRO DRESSING CHANGE UNDER ANESTHESIA Left 02/19/2022 DRESSING CHANGE (FOR OTHER THAN GALLOWAY) UNDER ANES., UPPER EXTREMITY (WRVU 0.86) performed by Jayme Armstrong MD at [facility] OR ? ? PRO I&D DEEP ABSCESS BURSA/HEMATOMA THIGH/KNEE REGION Left 02/06/2022 INCISION & DRAINAGE ABSCESS OR HEMATOMA, THIGH, KNEE SUPERFICIAL (WRVU 6.78) performed by Jayme Armstrong MD at [facility] OR ??? PRO INCIS OF HIP/THIGH FASCIA Left 01/23/2022 @FASCIOTOMY,THIGH OR HIP FOR COMPARTMENT SYNDROME (WRVU 12.89) performed by Sigifredo Garcia MD at [facility] OR ??? PRO NEGATIVE PRESSURE WOUND THERAPY, LESS THAN OR EQUAL TO 50 SQCM Left 02/05/2022 DRESSING CHANGE (VAC ASSISTED) UP TO 50SQ.CM (WRVU 0.55) performed by Orville Hennessy MD at [facility] MAIN OR ??? PRO NEGATIVE PRESSURE WOUND THERAPY, LESS THAN OR EQUAL TO 50 SQCM Left 02/05/2022 DRESSING CHANGE (VAC ASSISTED) UP TO 50SQ.CM (WRVU 0.55) performed by Tom Valdovinos MD at [facility] MAIN OR ??? PRO NEGATIVE PRESSURE WOUND THERAPY, LESS THAN OR EQUAL TO 50 SQCM Left 02/08/2022 DRESSING CHANGE (VAC ASSISTED) UP TO 50SQ.CM (WRVU 0.55) performed by Jeanette Chatterjee MD at [facility] MAIN OR ??? PRO OPEN TREAT MANDIBLE CONDYLE FX, COMPL 04/27/2013 OPEN TREATMENT, COMPLEX MANDIBLE FX., MULTI APPROACH, W/ FIXATION performed by Kishore Neil MD at [facility] OR ??? PRO REVISE MEDIAN N/CARPAL TUNNEL SURG Left 01/23/2022 MEDIAN NERVE DECOMPRESSION (CARPAL TUNNEL RELEASE) (WRVU 4.97) performed by Sigifredo Garcia MD at [facility] MAIN OR ??? PRO SEC CLSR SURG WOUND/DEHSN EXTENSIVE/COMPLICATED Left 01/26/2022 SECONDARY CLOSURE SURGICAL WOUND OR DEHISCENCE, EXTENSIVE OR COMPLICATED, UPPER EXTREMITY (WRVU 12.04) performed by Sigifredo Garcia MD at [facility] MAIN OR Current Facility-Administered Medications: ??? [...] date: 01/23/2022 Attending Physician: Gela Novak MD [facility] General Surgery History and Physical Alix [...] Arteriogram Lower Extremity 02/06/2022 Nicole Vivas MD [facility] INTERVENTIONL RAD ??? PRO DEBRIDEMENT BONE EA ADDL 20 SQCM 02/08/2022 EACH ADDITIONAL 20 SQ CM, OR PART THEREOF (WRVU 1.8) performed by Jeanette Chatterjee MD at [facility] PAIGE ? ? PRO DEBRIDEMENT BONE MUSCLE &/FASCIA 20 SQ CM/< Left 01/29/2022 DEBRIDEMENT SKIN, SUBCU, MUSCLE, BONE, LOWER EXTREMITY (WRVU 4.1) performed by Tom Valdovinos MD [facility] MAIN OR ? ? PRO DEBRIDEMENT BONE MUSCLE &/FASCIA 20 SQ CM/< Left 01/31/2022 DEBRIDEMENT SKIN, SUBCU, MUSCLE, BONE, LOWER EXTREMITY (WRVU 4.1) performed by Jose Branch MD at [facility] MAIN OR ? ? PRO DEBRIDEMENT BONE MUSCLE &/FASCIA 20 SQ CM/< Left 01/31/2022 DEBRIDEMENT SKIN, SUBCU, MUSCLE, BONE UPPER EXTREMITY (WRVU 4.1) performed by Jose Branch MDat [facility] MAIN OR ? ? PRO DEBRIDEMENT BONE MUSCLE &/FASCIA 20 SQ CM/< Left 02/02/2022 DEBRIDEMENT SKIN, SUBCU, MUSCLE, BONE UPPER EXTREMITY (WRVU 4.1) performed by Hina Starks MD at [facility] MAIN OR ? ? PRO DEBRIDEMENT BONE MUSCLE &/FASCIA 20 SQ CM/< Left 02/02/2022 DEBRIDEMENT SKIN, SUBCU, MUSCLE, BONE, LOWER EXTREMITY (WRVU 4.1) performed by Hina Starks MD at [facility] MAIN OR ? ? PRO DEBRIDEMENT MUSCLE AND FASCIA 20 SQ CM/< Left 01/26/2022 DEBRIDEMENT SKIN, SUBCU, MUSCLE, LOWER EXTREMITY (WRVU 2.7) performed by Sigifredo Garcia MD at [facility] MAIN OR ? ? PRO DEBRIDEMENT MUSCLE AND FASCIA 20 SQ CM/< Left 01/26/2022 DEBRIDEMENT SKIN, SUBCU, MUSCLE, UPPER EXTREMITY (WRVU 2.7) performed by Sigifredo Garcia MD at [facility] OR ? ? PRO DEBRIDEMENT MUSCLE AND FASCIA 20 SQ CM/< Left 02/05/2022 DEBRIDEMENT SKIN, SUBCU, MUSCLE, LOWER EXTREMITY (WRVU 2.7) performed by Tom Valdovinos MD at [facility] OR ? ? PRO DEBRIDEMENT MUSCLE AND FASCIA 20 SQ CM/< Left 02/04/2022 DEBRIDEMENT SKIN, SUBCU, MUSCLE, LOWER EXTREMITY (WRVU 2.7) performed by Sigifredo Garcia MD at [facility] OR ? ? PRO DEBRIDEMENT MUSCLE AND FASCIA 20 SQ CM/< Left 02/15/2022 DEBRIDEMENT SKIN, SUBCU, MUSCLE, UPPER EXTREMITY (WRVU 2.7) performed by Jayme Armstrong MD at [facility] OR ? ? PRO DEBRIDEMENT SUBCUTANEOUS TISSUE 20 SQCM/< Left 02/04/2022 DEBRIDEMENT SKIN AND SUBCU, UPPER EXTREMITY (WRVU 1.01) performed by [facility] ? ? PRO DEBRIDEMENT SUBCUTANEOUS TISSUE 20 SQCM/< Left 02/08/2022 DEBRIDEMENT SKIN AND SUBCU, LOWER EXTREMITY (WRVU 1.01) performed by Jeanette Chatterjee MD at [facility] OR ? ? PRO DEBRIDEMENT SUBCUTANEOUS TISSUE 20 SQCM/< Left 02/09/2022 DEBRIDEMENT SKIN AND SUBCU, LOWER EXTREMITY (WRVU 1.01) performed by Jeanette Chatterjee MD at [facility] OR ? ? PRO DEBRIDEMENT SUBCUTANEOUS TISSUE 20 SQCM/< Left 02/11/2022 DEBRIDEMENT SKIN AND SUBCU, LOWER EXTREMITY (WRVU 1.01) performed by Parrish Betancourt MD at [facility] OR ? ? PRO DEBRIDEMENT SUBCUTANEOUS TISSUE 20 SQCM/< Left 02/13/2022 DEBRIDEMENT SKIN AND SUBCU, LOWER EXTREMITY (WRVU 1.01) performed by Jeanette Chatterjee MD at [facility] OR ? ? PRO DEBRIDEMENT SUBCUTANEOUS TISSUE 20 SQCM/< Left 02/15/2022 DEBRIDEMENT SKIN AND SUBCU, LOWER EXTREMITY (WRVU 1.01) performed by Jayme Armstrong MD at [facility] OR ? ? PRO DEBRIDEMENT SUBCUTANEOUS TISSUE 20 SQCM/< Left 02/17/2022 DEBRIDEMENT SKIN AND SUBCU, LOWER EXTREMITY (WRVU 1.01) performed by Jayme Armstrong MD at [facility] OR ??? PRO DECOMP FOREARM, 2 COMPART, W/O DEBRIDE Left 01/23/2022 FASCIOTOMY; FOREARM AND\OR WRIST, FLEXOR & EXTENS. COMP (WRVU 10.79) performed by Sigifredo Garcia MD at [facility] OR ??? PRO DECOMPRESS ANT/LAT+POST LEG CMPART Left 01/23/2022 FASCIOTOMY, LOWER LEG, ALL COMPARTMENTS (WRVU 7.82) performed by Sigifredo Garcia MD at [facility] OR ??? PRO DRESSING CHANGE UNDER ANESTHESIA Left 02/11/2022 DRESSING CHANGE (FOR OTHER THAN GALLOWAY) UNDER ANES., UPPER EXTREMITY (WRVU 0.86) performed by Parrish Betancourt MD at [facility] OR ??? PRO DRESSING CHANGE UNDER ANESTHESIA Left 02/13/2022 DRESSING CHANGE (FOR OTHER THAN GALLOWAY) UNDER ANES., UPPER EXTREMITY (WRVU 0.86) performed by Jeanette Chatterjee MD at [facility] OR ??? PRO DRESSING CHANGE UNDER ANESTHESIA Left 02/17/2022 DRESSING CHANGE (FOR OTHER THAN GALLOWAY) UNDER ANES., UPPER EXTREMITY (WRVU 0.86) performed by Jayme Armstrong MD at [facility] OR ? ? PRO I&D DEEP ABSCESS BURSA/HEMATOMA THIGH/KNEE REGION Left 02/06/2022 INCISION & DRAINAGE ABSCESS OR HEMATOMA, THIGH, KNEE SUPERFICIAL (WRVU 6.78) performed by Jayme Armstrong MD at [facility] OR ??? PRO INCIS OF HIP/THIGH FASCIA Left 01/23/2022 @FASCIOTOMY,THIGH OR HIP FOR COMPARTMENT SYNDROME (WRVU 12.89) performed by Sigifredo Garcia MD at [facility] OR ??? PRO NEGATIVE PRESSURE WOUND THERAPY, LESS THAN OR EQUAL TO 50 SQCM Left 02/05/2022 DRESSING CHANGE (VAC ASSISTED) UP TO 50SQ.CM (WRVU 0.55) performed by Orville Hennessy MD at [facility] OR ??? PRO NEGATIVE PRESSURE WOUND THERAPY, LESS THAN OR EQUAL TO 50 SQCM Left 02/05/2022 DRESSING CHANGE (VAC ASSISTED) UP TO 50SQ.CM (WRVU 0.55) performed by Tom Valdovinos MD at [facility] OR ??? PRO NEGATIVE PRESSURE WOUND THERAPY, LESS THAN OR EQUAL TO 50 SQCM Left 02/08/2022 DRESSING CHANGE (VAC ASSISTED) UP TO 50SQ.CM (WRVU 0.55) performed by Jeanette Chatterjee MD at [facility] OR ??? PRO OPEN TREAT MANDIBLE CONDYLE FX, COMPL 04/27/2013 OPEN TREATMENT, COMPLEX MANDIBLE FX., MULTI APPROACH, W/ FIXATION performed by Kishore Neil MD at [facility] OR ??? PRO REVISE MEDIAN N/CARPAL TUNNEL SURG Left 01/23/2022 MEDIAN NERVE DECOMPRESSION (CARPAL TUNNEL RELEASE) (WRVU 4.97) performed by Sigifredo Garcia MD at [facility] OR ??? PRO SEC CLSR SURG WOUND/DEHSN EXTENSIVE/COMPLICATED Left 01/26/2022 SECONDARY CLOSURE SURGICAL WOUND OR DEHISCENCE, EXTENSIVE OR COMPLICATED, UPPER EXTREMITY (WRVU 12.04) performed by Sigifredo Garcia MD at [facility] OR Current Facility-Administered Medications: ??? [...] appropriately consented and is ready to proceed. Katilyn Rock MD 02/19/2022 I saw and evaluated [...] date: 01/23/2022 Attending Physician: Gela Novak MD [facility] General Surgery History and Physical Alix [...] date: 01/23/2022 Attending Physician: Parrish Betancourt MD [facility] General Surgery History and Physical Alix [...] Arteriogram Lower Extremity 02/06/2022 Nicole Vivas MD [facility] RAD ??? PRO DEBRIDEMENT BONE EA ADDL 20 SQCM 02/08/2022 EACH ADDITIONAL 20 SQ CM, OR PART THEREOF (WRVU 1.8) performed by Jeanette Chatterjee MD at [facility] ? ? PRO DEBRIDEMENT BONE MUSCLE &/FASCIA 20 SQ CM/< Left 01/29/2022 DEBRIDEMENT SKIN, SUBCU, MUSCLE, BONE, LOWER EXTREMITY (WRVU 4.1) performed by Tom Valdovinos MD [facility] MAIN OR ? ? PRO DEBRIDEMENT BONE MUSCLE &/FASCIA 20 SQ CM/< Left 01/31/2022 DEBRIDEMENT SKIN, SUBCU, MUSCLE, BONE, LOWER EXTREMITY (WRVU 4.1) performed by Jose Branch MD at [facility] OR ? ? PRO DEBRIDEMENT BONE MUSCLE &/FASCIA 20 SQ CM/< Left 01/31/2022 DEBRIDEMENT SKIN, SUBCU, MUSCLE, BONE UPPER EXTREMITY (WRVU 4.1) performed by Jose Branch MDat [facility] OR ? ? PRO DEBRIDEMENT BONE MUSCLE &/FASCIA 20 SQ CM/< Left 02/02/2022 DEBRIDEMENT SKIN, SUBCU, MUSCLE, BONE UPPER EXTREMITY (WRVU 4.1) performed by Hina Starks MD at [facility] OR ? ? PRO DEBRIDEMENT BONE MUSCLE &/FASCIA 20 SQ CM/< Left 02/02/2022 DEBRIDEMENT SKIN, SUBCU, MUSCLE, BONE, LOWER EXTREMITY (WRVU 4.1) performed by Hina Starks MD at [facility] OR ? ? PRO DEBRIDEMENT MUSCLE AND FASCIA 20 SQ CM/< Left 01/26/2022 DEBRIDEMENT SKIN, SUBCU, MUSCLE, LOWER EXTREMITY (WRVU 2.7) performed by Sigifredo Garcia MD at [facility] OR ? ? PRO DEBRIDEMENT MUSCLE AND FASCIA 20 SQ CM/< Left 01/26/2022 DEBRIDEMENT SKIN, SUBCU, MUSCLE, UPPER EXTREMITY (WRVU 2.7) performed by Sigifredo Garcia MD at [facility] OR ? ? PRO DEBRIDEMENT MUSCLE AND FASCIA 20 SQ CM/< Left 02/05/2022 DEBRIDEMENT SKIN, SUBCU, MUSCLE, LOWER EXTREMITY (WRVU 2.7) performed by Tom Valdovinos MD at [facility] OR ? ? PRO DEBRIDEMENT MUSCLE AND FASCIA 20 SQ CM/< Left 02/04/2022 DEBRIDEMENT SKIN, SUBCU, MUSCLE, LOWER EXTREMITY (WRVU 2.7) performed by Sigifredo Garcia MD at [facility] OR ? ? PRO DEBRIDEMENT SUBCUTANEOUS TISSUE 20 SQCM/< Left 02/04/2022 DEBRIDEMENT SKIN AND SUBCU, UPPER EXTREMITY (WRVU 1.01) performed [facility] ? ? PRO DEBRIDEMENT SUBCUTANEOUS TISSUE 20 SQCM/< Left 02/08/2022 DEBRIDEMENT SKIN AND SUBCU, LOWER EXTREMITY (WRVU 1.01) performed by Jeanette Chatterjee MD at [facility] OR ? ? PRO DEBRIDEMENT SUBCUTANEOUS TISSUE 20 SQCM/< Left 02/09/2022 DEBRIDEMENT SKIN AND SUBCU, LOWER EXTREMITY (WRVU 1.01) performed by Jeanette Chatterjee MD at [facility] OR ? ? PRO DEBRIDEMENT SUBCUTANEOUS TISSUE 20 SQCM/< Left 02/11/2022 DEBRIDEMENT SKIN AND SUBCU, LOWER EXTREMITY (WRVU 1.01) performed by Parrish Betancourt MD at [facility] OR ? ? PRO DEBRIDEMENT SUBCUTANEOUS TISSUE 20 SQCM/< Left 02/13/2022 DEBRIDEMENT SKIN AND SUBCU, LOWER EXTREMITY (WRVU 1.01) performed by Jeanette Chatterjee MD at [facility] OR ??? PRO DECOMP FOREARM, 2 COMPART, W/O DEBRIDE Left 01/23/2022 FASCIOTOMY; FOREARM AND\OR WRIST, FLEXOR & EXTENS. COMP (WRVU 10.79) performed by Sigifredo Garcia MD at [facility] OR ??? PRO DECOMPRESS ANT/LAT+POST LEG CMPART Left 01/23/2022 FASCIOTOMY, LOWER LEG, ALL COMPARTMENTS (WRVU 7.82) performed by Sigifredo Garcia MD at [facility] OR ??? PRO DRESSING CHANGE UNDER ANESTHESIA Left 02/11/2022 DRESSING CHANGE (FOR OTHER THAN GALLOWAY) UNDER ANES., UPPER EXTREMITY (WRVU 0.86) performed by Parrish Betancourt MD at [facility] OR ??? PRO DRESSING CHANGE UNDER ANESTHESIA Left 02/13/2022 DRESSING CHANGE (FOR OTHER THAN GALLOWAY) UNDER ANES., UPPER EXTREMITY (WRVU 0.86) performed by Jeanette Chatterjee MD at [facility] OR ? ? PRO I&D DEEP ABSCESS BURSA/HEMATOMA THIGH/KNEE REGION Left 02/06/2022 INCISION & DRAINAGE ABSCESS OR HEMATOMA, THIGH, KNEE SUPERFICIAL (WRVU 6.78) performed by Jayme Armstrong MD at [facility] OR ??? PRO INCIS OF HIP/THIGH FASCIA Left 01/23/2022 @FASCIOTOMY,THIGH OR HIP FOR COMPARTMENT SYNDROME (WRVU 12.89) performed by Sigifredo Garcia MD at [facility] OR ??? PRO NEGATIVE PRESSURE WOUND THERAPY, LESS THAN OR EQUAL TO 50 SQCM Left 02/05/2022 DRESSING CHANGE (VAC ASSISTED) UP TO 50SQ.CM (WRVU 0.55) performed by Orville Hennessy MD at [facility] OR ??? PRO NEGATIVE PRESSURE WOUND THERAPY, LESS THAN OR EQUAL TO 50 SQCM Left 02/05/2022 DRESSING CHANGE (VAC ASSISTED) UP TO 50SQ.CM (WRVU 0.55) performed by Tom Valdovinos MD at [facility] OR ??? PRO NEGATIVE PRESSURE WOUND THERAPY, LESS THAN OR EQUAL TO 50 SQCM Left 02/08/2022 DRESSING CHANGE (VAC ASSISTED) UP TO 50SQ.CM (WRVU 0.55) performed by Jeanette Chatterjee MD at [facility] OR ??? PRO OPEN TREAT MANDIBLE CONDYLE FX, COMPL 04/27/2013 OPEN TREATMENT, COMPLEX MANDIBLE FX., MULTI APPROACH, W/ FIXATION performed by Kishore Neil MD at [facility] OR ??? PRO REVISE MEDIAN N/CARPAL TUNNEL SURG Left 01/23/2022 MEDIAN NERVE DECOMPRESSION (CARPAL TUNNEL RELEASE) (WRVU 4.97) performed by Sigifredo Garcia MD at [facility] OR ??? PRO SEC CLSR SURG WOUND/DEHSN EXTENSIVE/COMPLICATED Left 01/26/2022 SECONDARY CLOSURE SURGICAL WOUND OR DEHISCENCE, EXTENSIVE OR COMPLICATED, UPPER EXTREMITY (WRVU 12.04) performed by Sigifredo Garcia MD at [facility] OR Current Facility-Administered Medications: ??? [...] Veto Hidalgo MD, 20 mg at 02/14/22 2032 ??? ceFEPime (Maxipime) 1g vial attach to sodium chloride 0.9% 100 mL Mini-Bag Plus, 1 g, Intravenous, Q24H, Parrish Betancourt MD, Stopped at 02/14/22 6625 ??? ascorbic acid (Vitamin C) (Vitamin C) [...] date: 01/23/2022 Attending Physician: Parrish Betancourt MD [facility] General Surgery History and Physical Alix [...] Arteriogram Lower Extremity 02/06/2022 Nicole Vivas MD [facility] RAD ??? PRO DEBRIDEMENT BONE EA ADDL 20 SQCM 02/08/2022 EACH ADDITIONAL 20 SQ CM, OR PART THEREOF (WRVU 1.8) performed by Jeanette Chatterjee MD at [facility] ? ? PRO DEBRIDEMENT BONE MUSCLE &/FASCIA 20 SQ CM/< Left 01/29/2022 DEBRIDEMENT SKIN, SUBCU, MUSCLE, BONE, LOWER EXTREMITY (WRVU 4.1) performed by Tom Valdovinos MD [facility] MAIN OR ? ? PRO DEBRIDEMENT BONE MUSCLE &/FASCIA 20 SQ CM/< Left 01/31/2022 DEBRIDEMENT SKIN, SUBCU, MUSCLE, BONE, LOWER EXTREMITY (WRVU 4.1) performed by Jose Branch MD at [facility] OR ? ? PRO DEBRIDEMENT BONE MUSCLE &/FASCIA 20 SQ CM/< Left 01/31/2022 DEBRIDEMENT SKIN, SUBCU, MUSCLE, BONE UPPER EXTREMITY (WRVU 4.1) performed by Jose Branch MDat [facility] OR ? ? PRO DEBRIDEMENT BONE MUSCLE &/FASCIA 20 SQ CM/< Left 02/02/2022 DEBRIDEMENT SKIN, SUBCU, MUSCLE, BONE UPPER EXTREMITY (WRVU 4.1) performed by Hina Starks MD at [facility]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 (Dilaudid) (1 mg/mL) injection syringe 1 mg ??? sevelamer carbonate (Renvela) tablet 1,600 mg ??? diphenhydrAMINE (Benadryl) (50 mg/mL) injection 25 mg ??? prochlorperazine (Compazine) (5 mg/mL) injection 5 mg ??? ondansetron (pf) (Zofran) (2 mg/mL) injection 4 mg ??? naloxone (Narcan) (0.4 mg/mL) injection 0.2 mg ??? LAYER OFF hutton ??? HYDROmorphone (mg) LAYER OFF shift total and Settings verification ??? vancomycin [...] Value Ref Range T&S only valid at [facility] Prepare RBC Result Value Ref Range [...] access should pressors be required. Will consider [place] placement for continued lab draws after arrival to the SICU. Orthopedic surgery with no immediate plans for RTOR, however will keep NPO in case emergent take back required. 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 He is admitted tonight to the SICU due to hemorrhagic shock in the setting of ongoing bleeding from a LLE fasciotomy. He was admitted initially to the MICU 01/23 s/p VT arrest at [facility] in the setting ofbeing down for [...] (WRVU 4.1) performed by Tom Valdovinos MD [facility] MAIN OR ? ? PRO DEBRIDEMENT BONE MUSCLE &/FASCIA 20 SQ CM/< Left 01/31/2022 DEBRIDEMENT SKIN, SUBCU, MUSCLE, BONE, LOWER EXTREMITY (WRVU 4.1) performed by Jose Branch MD at [facility] MAIN OR ? ? PRO DEBRIDEMENT BONE MUSCLE &/FASCIA 20 SQ CM/< Left 01/31/2022 DEBRIDEMENT SKIN, SUBCU, MUSCLE, BONE UPPER EXTREMITY (WRVU 4.1) performed by Jose Branch MDat [facility] OR ? ? PRO DEBRIDEMENT BONE MUSCLE &/FASCIA 20 SQ CM/< Left 02/02/2022 DEBRIDEMENT SKIN, SUBCU, MUSCLE, BONE UPPER EXTREMITY (WRVU 4.1) performed by Hina Starks MD at [facility] MAIN OR ? ? PRO DEBRIDEMENT BONE MUSCLE &/FASCIA 20 SQ CM/< Left 02/02/2022 DEBRIDEMENT SKIN, SUBCU, MUSCLE, BONE, LOWER EXTREMITY (WRVU 4.1) performed by Hina Starks MD at [facility] OR ? ? PRO DEBRIDEMENT MUSCLE AND FASCIA 20 SQ CM/< Left 01/26/2022 DEBRIDEMENT SKIN, SUBCU, MUSCLE, LOWER EXTREMITY (WRVU 2.7) performed by Sigifredo Garcia MD at [facility] OR ? ? PRO DEBRIDEMENT MUSCLE AND FASCIA 20 SQ CM/< Left 01/26/2022 DEBRIDEMENT SKIN, SUBCU, MUSCLE, UPPER EXTREMITY (WRVU 2.7) performed by Sigifredo Garcia MD at [facility] OR ??? PRO DECOMP FOREARM, 2 COMPART, W/O DEBRIDE Left 01/23/2022 FASCIOTOMY; FOREARM AND\OR WRIST, FLEXOR & EXTENS. COMP (WRVU 10.79) performed by Sigifredo Garcia MD at [facility] OR ??? PRO DECOMPRESS ANT/LAT+POST LEG CMPART Left 01/23/2022 FASCIOTOMY, LOWER LEG, ALL COMPARTMENTS (WRVU 7.82) performed by Sigifredo Garcia MD at [facility] OR ??? PRO INCIS OF HIP/THIGH FASCIA Left 01/23/2022 @FASCIOTOMY,THIGH OR HIP FOR COMPARTMENT SYNDROME (WRVU 12.89) performed by Sigifredo Garcia MD at [facility] MAIN OR ??? PRO OPEN TREAT MANDIBLE CONDYLE FX, COMPL 04/27/2013 OPEN TREATMENT, COMPLEX MANDIBLE FX., MULTI APPROACH, W/ FIXATION performed by Kishore Neil MD at [facility] MAIN OR ??? PRO REVISE MEDIAN N/CARPAL TUNNEL SURG Left 01/23/2022 MEDIAN NERVE DECOMPRESSION (CARPAL TUNNEL RELEASE) (WRVU 4.97) performed by Sigifredo Garcia MD at [facility] MAIN OR ??? PRO SEC CLSR SURG WOUND/DEHSN EXTENSIVE/COMPLICATED Left 01/26/2022 SECONDARY CLOSURE SURGICAL WOUND OR DEHISCENCE, EXTENSIVE OR COMPLICATED, UPPER EXTREMITY (WRVU 12.04) performed by Sigifredo Garcia MD at [facility] MAIN OR Prior To Admission Medications: [...] mg/mL) in sodium chloride 0.9% 50 mL LAYER OFF infusion ??? HYDROmorphone (Dilaudid) (1 mg/mL) injection syringe 1 mg ??? sevelamer carbonate (Renvela) tablet 1,600 mg ??? diphenhydrAMINE (Benadryl) (50 mg/mL) injection 25 mg ??? prochlorperazine (Compazine) (5 mg/mL) injection 5 mg ??? ondansetron (pf) (Zofran) (2 mg/mL) injection 4 mg ??? naloxone (Narcan) (0.4 mg/mL) injection 0.2 mg ??? LAYER OFF hutton ??? HYDROmorphone (mg) LAYER OFF shift total and Settings verification ??? vancomycin [...] to control pain - pain control: acetaminophen, LAYER OFF CV: hypotension in the setting of hypovolemia [...] the LLE. David Pagan MD Orthopaedic Surgery [facility] I spoke with and examined the [...] properly marked. David Pagan MD Orthopaedic Surgery [facility] Associated attestation - Sigifredo Garcia MD [...] fracture ID: 31 y.o. Male presents to [facility] with PMH significant for hypertension, angioedema requiring intubation(unclear trigger), GERD, gastritis, esophagitis, and urachal cyst s/p I&D, and polysubstance use(including EtOH, cocaine, fentanyl, heroin)??who presented in transfer from [facility] to [facility] ICU on??01/23/2022??for cardiac arrest s/p ROSC, likely [...] to neuro exam. The transport events to [facility] are not clear, but the patient was given a total of 6mg narcan, 10mg IMversed (for ?seizure activity), and and IO placed. He also developed Vtach with rates in the 220s had CPR performed via Jitendra. He was intubated on arrival to [facility] underwent defibrillation with ROSC. He [...] was started on levophed and transferred to [facility] for ongoing management. Hospital/ICU course has been significant for: ?? Rhabdomyolysis d/t LUE + LLE Compartment Syndrome with hyperkalemic cardiac arrest ?? COVID-19 infection, Asymptomatic ?? 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 Transaminitis, likely ischemic hepatitis ?? Possible [...] (WRVU 4.1) performed by Tom Valdovinos MD [facility] MAIN OR ? ? PRO DEBRIDEMENT BONE MUSCLE &/FASCIA 20 SQ CM/< Left 01/31/2022 DEBRIDEMENT SKIN, SUBCU, MUSCLE, BONE, LOWER EXTREMITY (WRVU 4.1) performed by Jose Branch MD at [facility] MAIN OR ? ? PRO DEBRIDEMENT BONE MUSCLE &/FASCIA 20 SQ CM/< Left 01/31/2022 DEBRIDEMENT SKIN, SUBCU, MUSCLE, BONE UPPER EXTREMITY (WRVU 4.1) performed by Jose Branch MDat [facility] MAIN OR ? ? PRO DEBRIDEMENT MUSCLE AND FASCIA 20 SQ CM/< Left 01/26/2022 DEBRIDEMENT SKIN, SUBCU, MUSCLE, LOWER EXTREMITY (WRVU 2.7) performed by Sigifredo Garcia MD at [facility] MAIN OR ? ? PRO DEBRIDEMENT MUSCLE AND FASCIA 20 SQ CM/< Left 01/26/2022 DEBRIDEMENT SKIN, SUBCU, MUSCLE, UPPER EXTREMITY (WRVU 2.7) performed by Sigifredo Garcia MD at [facility] MAIN OR ??? PRO DECOMP FOREARM, 2 COMPART, W/O DEBRIDE Left 01/23/2022 FASCIOTOMY; FOREARM AND\OR WRIST, FLEXOR & EXTENS. COMP (WRVU 10.79) performed by Sigifredo Garcia MD at [facility] OR ??? PRO DECOMPRESS ANT/LAT+POST LEG CMPART Left 01/23/2022 FASCIOTOMY, LOWER LEG, ALL COMPARTMENTS (WRVU 7.82) performed by Sigifredo Garcia MD at [facility] MAIN OR ??? PRO INCIS OF HIP/THIGH FASCIA Left 01/23/2022 @FASCIOTOMY,THIGH OR HIP FOR COMPARTMENT SYNDROME (WRVU 12.89) performed by Sigifredo Garcia MD at [facility] MAIN OR ??? PRO OPEN TREAT MANDIBLE CONDYLE FX, COMPL 04/27/2013 OPEN TREATMENT, COMPLEX MANDIBLE FX., MULTI APPROACH, W/ FIXATION performed by Kishore Neil MD at [facility] MAIN OR ??? PRO REVISE MEDIAN N/CARPAL TUNNEL SURG Left 01/23/2022 MEDIAN NERVE DECOMPRESSION (CARPAL TUNNEL RELEASE) (WRVU 4.97) performed by Sigifredo Garcia MD at [facility] MAIN OR ??? PRO SEC CLSR SURG WOUND/DEHSN EXTENSIVE/COMPLICATED Left 01/26/2022 SECONDARY CLOSURE SURGICAL WOUND OR DEHISCENCE, EXTENSIVE OR COMPLICATED, UPPER EXTREMITY (WRVU 12.04) performed by Sigifredo Garcia MD at [facility] MAIN OR Prior To Admission Medications: [...] who have questions please contact the health career technical education teacher that requested your imaging first. Head wo Contrast (Generic) (Exam End: 01/23/2022 3:58 AM) Impression Globi pallidi infarcts. Mild cerebral edema. Thank you for letting us participate in the care of this patient. If you are a health care provider and have any questions regarding this report, please contact the number below. For patients who have questions please contact the health career technical education teacher that requested your imaging first. Abdomen 1 [...] who have questions please contact the health career technical education teacher that requested your imaging first. Lower Extremity [...] who have questions please contact the health career technical education teacher that requested your imaging first. Chest wo [...] who have questions please contact the health career technical education teacher that requested your imaging first. Upper Extremity [...] who have questions please contact the health career technical education teacher that requested your imaging first. Forearm Left [...] who have questions please contact the health career technical education teacher that requested your imaging first. Chest One [...] who have questions please contact the health career technical education teacher that requested your imaging first. Femur 2 views Left (Generic) (Exam End: 01/23/2022 2:04 PM) Impression No significant osseous finding. Thank you for letting us participate in the care of this patient. If you are a health care provider and have any questions regarding this report, please contact the number below. For patients who have questions please contact the health career technical education teacher that requested your imaging first. Electronically signed by: Lisandro Pruett MD, [facility] ([phone]), at 01/23/2022 2:10 PM XR Tibia Fibula Left (Generic) (Exam End: 01/23/2022 2:04 PM) Impression No bony abnormality seen. Thank you for letting us participate in the care of this patient. If you are a health care provider and have any questions regarding this report, please contact the number below. For patients who have questions please contact the health career technical education teacher that requested your imaging first. Chest One [...] who have questions please contact the health career technical education teacher that requested your imaging first. Electronically signed by: Lisandro Pruett MD, [facility] ([phone]), at 01/23/2022 5:01 PM MRI Brain wo [...] who have questions please contact the health career technical education teacher that requested your imaging first. Angiogram [place] [facility] (Exam End: 01/24/2022 11:32 PM) Impression Normal appearance of the large and medium size arteries of the head and neck Thank you for letting us participate in the care of this patient. If you are a health care provider and have any questions regarding this report, please contact the number below. For patients who have questions please contact the health career technical education teacher that requested your imaging first. Angiogram Carotids [...] who have questions please contact the health career technical education teacher that requested your imaging first. Chest Abdomen [...] who have questions please contact the health career technical education teacher that requested your imaging first. 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 David Pagan MD Orthopaedic Surgery [facility] Dimas Hernandez MD - 01/31/2022 6:29 AM EDT The patient's history and physical exam have been reviewed and completed. There has been no intervalchange from that of the pre-operative history and physical exam done within the last 30 days. Tachycardic, regular rhythm w/o R/M/G LCTAB iDmas Hernandez MD Orthopaedic Surgery Tom Valdovinos MD - 01/29/2022 7:01 AM EDT 24-HOUR H&P UPDATE Alix Holland was seen and evaluated. No interval events or changes in health status since preoperative H+P. Denies angina, dyspnea, fevers, chills, or malaise within the last 14 days. All questions were answered. Stable for surgery as scheduled. Alert and oriented RRR CTAB Doc Roberts MD Orthopaedic Surgery [facility] Parrish Esqueda MD - 01/28/2022 5:25 [...] answered. Parrish Esqueda MD Orthopaedic Surgery Pager: [phone] Kris Dean MD - 01/26/2022 6:03 AM [...] to neuro exam. The transport events to [facility] are not clear, but thepatient was given a total of 6mg narcan, 10mg IMversed (for ?seizure activity), and and IO placed. He also developed Vtach with rates in the 220s had CPR performed via Jitendra. He was intubated on arrival to [facility] underwent defibrillation with ROSC. He [...] was started on levophed and transferred to [facility] for ongoing management. Urine drug screen: +barbiturates, +oxycodone, +opiates Tylenol, salicylates, and ethanol were negative Notable labs: WBC 27.6 Hgb 21.5 Plts 383 K 7.8-> 5.4 CO2 11 BUN 32 Cr 4.37 AG 35 Lactate >10 AST 3588 ALT 990 Trop-I >9000 SARS-CoV-2 RNA detected En-route to [facility] he was given boluses of ketamine for [...] FIXATION performed by Kishore Neil MD at [facility] MA[facility] OR No family history on [...] CK >220,000* TROPONINT 0.43* Microbiology: -01/22/22 from [facility]: SARS-CoV2 PCR positive -Blood cultures, sputum culture, UA, respiratory PCR pending ECG: Sinus tachycardia Imaging: Assessment: Alix Holland is a 31 y.o. male with PMH significant for polysubstance use who presentsto the ICU in transfer from [facility] with cardiac arrest s/p ROSC. Etiology [...] removed Right femoral CVL placed 01/22 at [facility] Right radial A-line ETT NGT [...] Hillman APRN January 23, 2022 Critical Care [place] Team (pager [phone]) Dr. Robles is the attending of record [...] to the planned procedure. Hand Hygiene: The ortho assistant did perform hand hygiene prior to line insertion. Catheter type: PICC Lot number: [id number] Procedure Technique: Skin was prepped with chlorhexidine. [...] location at time of insertion: ICU 4 [facility] Rogers Solano APRN Collette Rivas PA [...] to the planned procedure. Hand Hygiene: The ortho assistant did perform hand hygiene prior to [...] to the planned procedure. Hand Hygiene: The ortho assistant did perform hand hygiene prior to [...] yes Patient location at time of insertion: [address] Procedure Comments: Entire procedure supervised by [...] location at time of insertion: ICU 3 [place] Procedure Comments: Prior to dilation wire was [...] to the planned procedure. Hand Hygiene: The ortho assistant did perform hand hygiene prior to [...] Patient is medically ready for discharge to [facility] for acute rehab. Per [facility], patient can have PICC line in place for discharge. Needs for Transition of Care: Plan for discharge is: Acute Rehab Transportation: ambulance , Supply ambulance 2:30pm Wheelchair van/Ambulance? Yes Ambulance transportation [...] and IADLs, drives, used towork for a [employer] but is not currently working. Enjoys [...] set up out patient Suboxone once at [facility]. plans to call patient later today Assessment: Valeriy was welcoming and friendly. He was just starting PT so RC didn't stay long Interventions delivered: Other: Peer Support Plan: RC will continue to be available to patient via phone after DC Outstanding Discharge Needs: At time of discharge patient may require a buprenorphine script to bridge to outpatient MAT appointment, please page Psychiatry at [phone] if you need assistance with this. Time [...] outpatient Suboxone provider. He has spoken with [facility] in [place]. He plans to see them after DC [...] outpatient MAT appointment, please page Psychiatry at [phone] if you need assistance with this. Time [...] changed per flowsheet by this RN. 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 Pt able to get [...] needed. Foam boots to BLE. C.diff precautions d/anveed today. VSS. Hand-off report given. ?? PLAN [...] outpatient MAT appointment, please page Psychiatry at [phone] if you need assistance with this. Time [...] in the 60-day range as notedbelow.) Origin: [facility] Destination: [facility] Is the patient's stay covered under [...] wheelchair van (i.e. seated during transport, without certified medical biller or monitoring?): No 4) In addition to [...] by the Centers of Medicare and MedicaidServices ([facility]) to support the determination of medical necessity [...] attending physician, this form was signed by Comptometrist Plan of Care - Corina Zabala RN - 03/18/2022 4:27 PM EDT OUTCOME EVALUATION NOTE: ?? OUTCOME SUMMARY: ?? Pt had a good day. VSS on RA. A&Ox4. HR tachy to the 110s to 120 at baseline. LAYER OFF discontinued. Prn oxy given with good effect. [...] outpatient MAT appointment, please page BIT at [phone] if you need assistance with this. Time spent with the patient (min):15 minutes Time spent on case coordination (min): 15 minutes Consult Note - Dilia Lemons - 03/18/2022 7:30 AM EDT [facility] Evaluation Referral source: Follow up Reason [...] friendly. He is interested in starting Suboxone. [facility] has already given him information [...] outpatient MAT appointment, please page Psychiatry at [phone] if you need assistance with this. Time spent with the patient (min):15 minutes Time spent on case coordination (min): 15 minutes Plan of Care - Corina Zabala RN - 03/17/2022 4:31 PM EDT OUTCOME EVALUATION NOTE: OUTCOME SUMMARY: Pt had a good day. VSS on RA. A&Ox4. HR tachy to the 110s to 120 at baseline. LAYER OFF decreased to 0.1mg. Prn oxy given with [...] Their notes will be sent by the Ross Carrier Driver to the rehab facilities. Will likely have dressing change tomorrow. Currently weaning his dilaudid LAYER OFF. ?? Per IDR: 03/17/2022: Acute Rehab on [...] for discharge is: Acute Rehab Agency Referrals: [facility] Inpatient Rehabilitation Unit - [address] [address] [facility] Acute Rehabilitation and Sub-Acute (Swing) Rehab Levels of Care [address] [place] [address] Transportation: ambulance Discussed with patient on 03/16/2022. Barriers to discharge: Discharge planning Psych: Adjustment to diagnosis/illness, Coping/stress Plan going forward: ACS Care Management will continue to follow and assist with discharge planning and coordination of care as indicated. Anticipated Date of Discharge: 03/22/2022 Alexa Fonseca RN (Jonas) RN/CM - Cellphone: [phone] Pager: [phone] Covering Service RN/CM Care Management - Jamilah Fonseca RN - 03/17/2022 9:05 AM EDT RN/CM has called: Alix Holland (father) c: [phone] Dad's House: Mobile home; [address]. No steps inside of home. Dad visits almost daily to see his son. Dad will help him establish a PCP with the local [facility]. Per Dad, when pt gets home, [...] near future. Pt's has a brother in [place] - willing to have him come down there once he is physically able to do so. Work: [employer], Hiking through [place]. Pt's dad is hopeful that he'll be able to get backto his work. Alexa (Kenny) ÁNGEL Fonseca RN/CM - Cellphone: [phone] Pager: [phone] Covering Service RN/CM Plan of Care - Jayme Keenan RN - 03/16/2022 6:56 PM EDT OUTCOME EVALUATION NOTE: OUTCOME SUMMARY: Alix had a good shift today. Elevated BPs and tachycardic, other VSS on RA. Reporting 8 to 10/10 pain, using dilaudid LAYER OFF and PRN oxy given x2. Up to [...] and independence Monitor and control pain, weaning LAYER OFF, syringe expires 03/18 at 1755 Hoping to [...] discuss discharge planning needs. ?? provide the [facility], Office of Care Management letter from the Hall Worker pertaining to rehab referrals. ?? provide a letter describing our affiliations within the [facility] and educate about their right to choose where referrals are sent. ?? provide the [facility] Star Quality Rating handout. ?? review the different levels of rehab including SNF, swing, and acute. ?? provide a list of facilities within their preferred geographic area. ?? request that they provide at least three choices for referral. They have requested referrals to: [facility] Inpatient Rehabilitation Unit - [address] [address] [facility] Acute Rehabilitation and Sub-Acute (Swing) Rehab Levels of Care [address] [place] [address] Covid Vaccination Status: UNVACCINATED Does patient have COVID vaccine card: N/A Anticipated discharge date: 03/19/2022 Note routed to a Contact Lens Fitter who will communicate referrals to facilities and [...] go back to his dad's house in [facility]. RN/CM attempted to call: Alix Holland (Father) - Alix Holland (father) c: [phone]. RN/CM attempted calls to other family members: Marylou Holland (Sibling) - [phone] (H): phone call was not able to get through Josefina Holland (Grandparent) - [phone] (H): line busy Per patient, he was employed x 5 years. He is unsure if he'll have employment after all of this is completed and he is strong, healthy enough to workAmi Liu (Kenny) ÁNGEL Fonseca RN/CM - Cellphone: [phone] Pager: [phone] Covering Service RN/CM Consult Note - Dilia [...] RA. Reporting 8 to10/10 pain, using dilaudid LAYER OFF and PRN oxy given x2. Dressing change [...] and self care Monitor and control pain, LAYER OFF expires 03/16 1800 INDIVIDUALIZED FALL PREVENTION INTERVENTIONS: [...] Alexa Fonseca RN (Jonas) RN/CM - Cellphone: [phone] Pager: [phone] Covering Service RN/CM Op Note - Allison Kelly MD - 03/15/2022 9:[address] [facility] Operative Note Patient Name: Alix Holland : [id number] MR#: [id number] Case Date: 03/15/2022 Surgeon: Surgeon(s) and Role: [...] changes who ultimately underwent STSGs to the [facility] and [facility] on 03/10/22. He then returned [...] Operative Note Patient Name: Alix Holland : [id number] MR#: [id number] Case Date: 03/15/2022 Surgeon: Surgeon(s) and Role: [...] Prevention Bundle Used? N/A Consult Note - Tohmas Julian [facility] - 03/14/2022 4:59 PM EDT Clinical Pharmacist Note-Vanc Alix Holland [id number] 1990 Alix Holland is a 31 y.o. [...] have. Alternately, during off-hours you may call [phone] to contact a pharmacist. THOMAS JULIAN [facility] Pager [phone] Plan of Care - Adrienne Tejada RN [...] Operative Note Patient Name: Alix Holland : [id number] MR#: [id number] Case Date: 03/13/2022 Surgeon: Surgeon(s) and Role: [...] from the original note were not included. [facility] Operative Note Patient Name: Alix Holland : [id number] MR#: [id number] Case Date: 03/13/2022 Surgeon: Surgeon(s) and Role: [...] Reporting 8 to 10/10 pain, using dilaudid LAYER OFF and PRN oxy given x2. No BM this shift but pt now willing to take bowel meds, LBM 8/. Adequate UOP via urinal. NPO status maintained after midnight. PLAN MOVING FORWARD: Strict bedrest NPO for OR today Encourage self care Monitor and control pain, start weaning LAYER OFF INDIVIDUALIZED FALL PREVENTION INTERVENTIONS: Patient-specific fall risk factors per assessment: [current deficits]: Unfamiliar environment, recent surgeries, generalized weakness, lines and drains, pain, narcotics Assistance [level of assistance required for transfers and ambulation]: Bedrest, 2 assist to reposition Supervision [direct monitoring required during toileting and ADLs]: Hands on Surveillance [continuous indirect monbitoring]: Masimo, rounding, personal items and [facility] room near unit station, bed alarm set Plan of Care - Adrienne Tejada RN - 03/12/2022 7:11 PM EDT OUTCOME EVALUATION NOTE: OUTCOME SUMMARY: Pt A&Ox4. Pt hypertensive and tachycardic. MD aware. A&Ox4. Pt denies SOB, N/V.Pain controlled witn LAYER OFF dilaudid and PRN pain meds. Neurovascular checks [...] Reporting 8 to 10/10 pain, using dilaudid LAYER OFF and PRN oxy given x2. No BM this shift, LBM 8/10. High UOP. MIVF discontinued. PLAN MOVING FORWARD: NPO tomorrow at midnight for OR Tuesday Encourage self care Monitor and control pain, start weaning LAYER OFF INDIVIDUALIZED FALL PREVENTION INTERVENTIONS: Patient-specific fall risk [...] and tachycardic. MD aware. Pain controlled witn LAYER OFF dilaudid and PRN pain meds. Neurovascular checks [...] VAC particularly not holding suction please page [phone] immediately given that thiswill affect skin graft take -High-protein high-calorie low Phos diet -Plan to return to the operating room on Tuesday for VAC removal, bedrest until then -LAYER OFF for pain control will wean as able [...] Alexa Fonseca RN (Jonas) RN/CM - Cellphone: [phone] Pager: [phone] Covering Service RN/CM Op Note - Veto Hidalgo MD - 03/10/2022 4:[address] [facility] Operative Note Patient Name: Alix Holland : [id number] MR#: [id number] Case Date: 03/10/2022 Surgeon: Surgeon(s) and Role: [...] Operative Note Patient Name: Alix Holland : [id number] MR#: [id number] Case Date: 03/10/2022 Surgeon: Surgeon(s) and Role: [...] Alexa Fonseca RN (Jonas) RN/CM - Cellphone: [phone] Pager: [phone] Covering Service RN/CM Plan of Care - [...] Sanabria MD - 03/03/2022 6:[address] [facility] Operative Note Patient Name: Alix Holland : [id number] MR#: [id number] Case Date: 03/03/2022 Surgeon: Surgeon(s) and Role: [...] good granulation tissue, minimal exposed tendon. Measures [id number] 3mm deep. One black sponge replaced and [...] closing). WILLIE SANABRIA MD 03/03/2022 Plan of [facility] - Carlita Malik RN - 03/03/2022 2:46 PM EDT Peripherally Inserted Central Catheter (PICC) Teaching Sheet Peripherally inserted central catheters (dxph-vb-inne) (PICC) are used when you need IV [...] midline catheter? PICC lines are used for residential treatments. PICC lines may be used for [...] can be set up via the nurse Copy Director to help you. What are possible complications [...] Efficacy, Safety, Use, and Administration of [employer] 2006 Plan of Care - Rhonda Coyle RN - 03/03/2022 6:10 AM EDT Outcome Evaluation Note: Outcome Summary: Pt A&Ox4, VSS on RA - expect tachycardic, afebrile. Reports 10/10 pain with PRN oxycodone. WoundVac x2 to suction, CDI. AUOP via urinal, no BM this shift. Pt NPO at midnight for OR [place] change. Labsdrawn and sent. [facility] Plan Moving Forward: Pain management. OR [...] Operative Note Patient Name: Alix Holland : [id number] MR#: [id number] Case Date: 03/01/2022 Surgeon: Surgeon(s) and Role: [...] Sanabria MD - 03/01/2022 8:[address] [facility] Operative Note Patient Name: Alix Holland : [id number] MR#: [id number] Case Date: 03/01/2022 ?? Surgeon: Surgeon(s) and [...] Betancourt MD - 02/26/2022 8:[address] [facility] Operative Note Patient Name: Alix Holland : [id number] MR#: [id number] Case Date: 02/26/2022 Surgeon: Surgeon(s) and Role: [...] and Serratia infections.?? RN at bedside with WATER PURIFICATION CHEMIST; Patient has just returned from OR. RN [...] Risk Screen: no indicators present Current bed: [facility] Assessment: Patient is free of MASD at [...] Ajit Simmons RN on secure chat, pager [phone] or the wound care team at [phone] or pager [phone] with skin and wound care concerns or questions. Op Note - Elaine Dos Santos MD - 02/24/2022 12:[address] [facility] Operative Note Patient Name: Alix Holland : [id number] MR#: [id number] Case Date: 02/24/2022 Surgeon: Surgeon(s) and Role: [...] IV abx. Bed alarm on for safety. [facility] Plan Moving Forward: HD. Pain management. [...] Outpatient Agency/Support Group Needs: None Agency Referrals: [facility] for HD Transportation: Family Plan going forward: Care Management will continue to follow and assist with discharge planning and coordination of care as indicated. Anticipated Date of Discharge: 02/26/2022 Lizzy Love RN, BSN Case Management Brief Op Note - Elaine Dos Santos MD - 02/22/2022 9:42 AM EDT Brief Operative Note Patient Name: Alix Holland : [id number] MR#: [id number] Case Date: 02/22/2022 Surgeon: Surgeon(s) and Role: [...] Santos MD - 02/22/2022 9:[address] [facility] Operative Note Patient Name: Alix Holland : [id number] MR#: [id number] Case Date: 02/22/2022 Surgeon: Surgeon(s) and Role: [...] Sandoval MD - 02/19/2022 10:[address] [facility] Operative Note Patient Name: Alix Holland : [id number] MR#: [id number] Case Date: 02/19/2022 Surgeon: Surgeon(s) and Role: [...] Pt remained NPO @ 0000 for OR. [facility] Plan Moving Forward: Pain control. NPO [...] Operative Note Patient Name: Alix Holland : [id number] MR#: [id number] Case Date: 02/17/2022 Surgeon: Surgeon(s) and Role: [...] Armstrong MD - 02/17/2022 8:[address] [facility] Operative Note Patient Name: Alix Holland : [id number] MR#: [id number] Case Date: 02/17/2022 Surgeon: Surgeon(s) and Role: [...] tomorrow. Asked GUEVARA Huff to look into [facility] Dialysis to determine any other information they [...] Armstrong MD - 02/15/2022 2:[address] [facility] Operative Note Patient Name: Alix Holland : [id number] MR#: [id number] Case Date: 02/15/2022 Surgeon: Surgeon(s) and Role: [...] was cultured. We then removed the remaining [place]. The wound was irrigated and measured wound [...] EVALUATION: Ongoing Consult Note - Maureen Ames [facility] - 02/13/2022 12:17 PM EDT Clinical Pharmacist Note - Renal Dose Adjustment for Antimicrobials Alix Holland (A# [id number]) is being treated with the following antimicrobial [...] Chatterjee MD - 02/13/2022 9:[address] [facility] Operative Note Patient Name: Alix Holland : [id number] MR#: [id number] Case Date: 02/13/2022 Surgeon: Surgeon(s) and Role: [...] PCP: None Primary Team #: ICU (Juan #[id number]) CC: findings of CTH HPI: Alix Holland [...] he was following commands upon arrival to [facility] ICU. CTH showed bilateral symmetric globus pallidi [...] Arteriogram Lower Extremity 02/06/2022 Nicole Vivas MD [facility] INTERVENTIONL RAD ??? PRO DEBRIDEMENT BONE EA ADDL 20 SQCM 02/08/2022 EACH ADDITIONAL 20 SQ CM, OR PART THEREOF (WRVU 1.8) performed by Jeanette Chatterjee MD at [facility] PAIGE ? ? PRO DEBRIDEMENT BONE MUSCLE &/FASCIA 20 SQ CM/< Left 01/29/2022 DEBRIDEMENT SKIN, SUBCU, MUSCLE, BONE, LOWER EXTREMITY (WRVU 4.1) performed by Tom Valdovinos MD [facility] MAIN OR ? ? PRO DEBRIDEMENT BONE MUSCLE &/FASCIA 20 SQ CM/< Left 01/31/2022 DEBRIDEMENT SKIN, SUBCU, MUSCLE, BONE, LOWER EXTREMITY (WRVU 4.1) performed by Jose Branch MD at [facility] MAIN OR ? ? PRO DEBRIDEMENT BONE MUSCLE &/FASCIA 20 SQ CM/< Left 01/31/2022 DEBRIDEMENT SKIN, SUBCU, MUSCLE, BONE UPPER EXTREMITY (WRVU 4.1) performed by Jose Branch MDat [facility] MAIN OR ? ? PRO DEBRIDEMENT BONE MUSCLE &/FASCIA 20 SQ CM/< Left 02/02/2022 DEBRIDEMENT SKIN, SUBCU, MUSCLE, BONE UPPER EXTREMITY (WRVU 4.1) performed by Hina Starks MD at [facility] MAIN OR ? ? PRO DEBRIDEMENT BONE MUSCLE &/FASCIA 20 SQ CM/< Left 02/02/2022 DEBRIDEMENT SKIN, SUBCU, MUSCLE, BONE, LOWER EXTREMITY (WRVU 4.1) performed by Hina Starks MD at [facility] MAIN OR ? ? PRO DEBRIDEMENT MUSCLE AND FASCIA 20 SQ CM/< Left 01/26/2022 DEBRIDEMENT SKIN, SUBCU, MUSCLE, LOWER EXTREMITY (WRVU 2.7) performed by Sigifredo Garcia MD at [facility] MAIN OR ? ? PRO DEBRIDEMENT MUSCLE AND FASCIA 20 SQ CM/< Left 01/26/2022 DEBRIDEMENT SKIN, SUBCU, MUSCLE, UPPER EXTREMITY (WRVU 2.7) performed by Sigifredo Garcia MD at [facility] OR ? ? PRO DEBRIDEMENT MUSCLE AND FASCIA 20 SQ CM/< Left 02/05/2022 DEBRIDEMENT SKIN, SUBCU, MUSCLE, LOWER EXTREMITY (WRVU 2.7) performed by Tom Valdovinos MD at [facility] OR ? ? PRO DEBRIDEMENT MUSCLE AND FASCIA 20 SQ CM/< Left 02/04/2022 DEBRIDEMENT SKIN, SUBCU, MUSCLE, LOWER EXTREMITY (WRVU 2.7) performed by Sigifredo Garcia MD at [facility] OR ? ? PRO DEBRIDEMENT SUBCUTANEOUS TISSUE 20 SQCM/< Left 02/04/2022 DEBRIDEMENT SKIN AND SUBCU, UPPER EXTREMITY (WRVU 1.01) [facility] ? PRO DEBRIDEMENT SUBCUTANEOUS TISSUE 20 SQCM/< Left 02/08/2022 DEBRIDEMENT SKIN AND SUBCU, LOWER EXTREMITY (WRVU 1.01) performed by Jeanette Chatterjee MD at [facility] OR ? ? PRO DEBRIDEMENT SUBCUTANEOUS TISSUE 20 SQCM/< Left 02/09/2022 DEBRIDEMENT SKIN AND SUBCU, LOWER EXTREMITY (WRVU 1.01) performed by Jeanette Chatterjee MD at [facility] OR ??? PRO DECOMP FOREARM, 2 COMPART, W/O DEBRIDE Left 01/23/2022 FASCIOTOMY; FOREARM AND\OR WRIST, FLEXOR & EXTENS. COMP (WRVU 10.79) performed by Sigifredo Garcia MD at [facility] OR ??? PRO DECOMPRESS ANT/LAT+POST LEG CMPART Left 01/23/2022 FASCIOTOMY, LOWER LEG, ALL COMPARTMENTS (WRVU 7.82) performed by Sigifredo Garcia MD at [facility] OR ? ? PRO I&D DEEP ABSCESS BURSA/HEMATOMA THIGH/KNEE REGION Left 02/06/2022 INCISION & DRAINAGE ABSCESS OR HEMATOMA, THIGH, KNEE SUPERFICIAL (WRVU 6.78) performed by Jayme Armstrong MD at [facility] OR ??? PRO INCIS OF HIP/THIGH FASCIA Left 01/23/2022 @FASCIOTOMY,THIGH OR HIP FOR COMPARTMENT SYNDROME (WRVU 12.89) performed by Sigifredo Garcia MD at [facility] MAIN OR ??? PRO NEGATIVE PRESSURE WOUND THERAPY, LESS THAN OR EQUAL TO 50 SQCM Left 02/05/2022 DRESSING CHANGE (VAC ASSISTED) UP TO 50SQ.CM (WRVU 0.55) performed by Orville Hennessy MD at [facility] MAIN OR ??? PRO NEGATIVE PRESSURE WOUND THERAPY, LESS THAN OR EQUAL TO 50 SQCM Left 02/05/2022 DRESSING CHANGE (VAC ASSISTED) UP TO 50SQ.CM (WRVU 0.55) performed by Tom Valdovinos MD at [facility] MAIN OR ??? PRO NEGATIVE PRESSURE WOUND THERAPY, LESS THAN OR EQUAL TO 50 SQCM Left 02/08/2022 DRESSING CHANGE (VAC ASSISTED) UP TO 50SQ.CM (WRVU 0.55) performed by Jeanette Chatterjee MD at [facility] MAIN OR ??? PRO OPEN TREAT MANDIBLE CONDYLE FX, COMPL 04/27/2013 OPEN TREATMENT, COMPLEX MANDIBLE FX., MULTI APPROACH, W/ FIXATION performed by Kishore Neil MD at [facility] MAIN OR ??? PRO REVISE MEDIAN N/CARPAL TUNNEL SURG Left 01/23/2022 MEDIAN NERVE DECOMPRESSION (CARPAL TUNNEL RELEASE) (WRVU 4.97) performed by Sigifredo Garcia MD at [facility] MAIN OR ??? PRO SEC CLSR SURG WOUND/DEHSN EXTENSIVE/COMPLICATED Left 01/26/2022 SECONDARY CLOSURE SURGICAL WOUND OR DEHISCENCE, EXTENSIVE OR COMPLICATED, UPPER EXTREMITY (WRVU 12.04) performed by Sigifredo Garcia MD at [facility] MAIN OR Home Medications: No current [...] year, name, knows why he is at [facility], knows he is at [facility], follows complex commands. More alert than prior; [...] privacy for the patient. 2. Apply the Keavy sheet with Body Pad under the patient with the tag on the underside of the Keavy Sheet unfolded toward head of bed. Align upper edge of Keavy Sheet with patient's shoulders. 3. Gently slide [...] chat or the wound care team at [phone] or pager [phone] with skin and wound care concerns or [...] off for discharge. We recommend stopping the LAYER OFF and increasing the frequency of the PRNoxycodone to make up for any decrease in coverage. There is no role for IV pain medication in his care except for rescue and OR. The dronabinol can also be increased. Recommendations: - D/C hydromorphone LAYER OFF - increase oxy sliding scale to Q3h - avoid IV opioids (other than rescue and OR) - increase dronabinol to 15mg PO BID Plan discussed with patient, his partner, and the primary team. Recommendations are above, please page if further consultation is required. Nicholas Modi MD 02/11/2022 Acute Pain Service Pager: [phone] I have seen and examined the patient. I have reviewed Dr. Modi's note and agree with the findings, assessment and plan. Op Note - Kaitlyn Rock MD - 02/11/2022 11:[address] [facility] Oper[facility] Note Patient Name: Alix Holland : [id number] MR#: [id number] Case Date: 02/11/2022 Surgeon: Surgeon(s) and Role: [...] CONSULTATION NOTE Patient ID: Alix Holland Room: [address] [place] [address] Reason for Consult: Surgical site infection and [...] issues with pain control and PO and LAYER OFF currently helping somewhat. 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 Operative Note Patient Name: Alix Holland : [id number] MR#: [id number] Case Date: 02/09/2022 Surgeon: Surgeon(s) and Role: [...] Operative Note Patient Name: Alix Holland : [id number] MR#: [id number] Case Date: 02/08/2022 Surgeon: Surgeon(s) and Role: [...] Please contact Naomy Liao RN on pager [phone] or the wound care team at [phone] with skin and wound care concerns or questions. Op Note - Jeanette Chatterjee MD - 02/08/2022 4:[address] [facility] Operative Note Patient Name: Alix Holland : [id number] MR#: [id number] Case Date: 02/08/2022 Surgeon: Surgeon(s) and Role: [...] N/A Prescription Coverage: No Preferred Pharmacy: [facility] [address] [id number] [email or web address] [address] [place] [address] - 55 [facility] 55 [facility] [address] Plan for discharge is: Pending Hospital Course [...] Armstrong MD - 02/06/2022 4:[address] [facility] Operative Note Patient Name: Alix Holland : [id number] MR#: [id number] Case Date: 02/06/2022 Surgeon: Surgeon(s) and Role: [...] artery ?? Mynx Closure device deployed, R MONTESSORI LEAD TEACHER Findings of the procedure: ?? 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 Transfer back to ICU 2. 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 Monitor for Right [...] to wound vac on LUE. Pt using LAYER OFF for pain control. PT to OR midday. [...] per assessment: [current deficits]: Severely limited mobility, LAYER OFF pump, central venous access., wound vacs Assistance [...] Valdovinos MD - 02/05/2022 1:[address] [facility] Operative Note Panel 1 Patient Name: Alix Holland : [id number] MR#: [id number] Case Date: 02/05/2022 Surgeon: Surgeon(s) and Role: [...] Hennessy MD - 02/05/2022 1:[address] [facility] Operative Note Patient Name: Alix Holland : [id number] MR#: [id number] Case Date: 02/05/2022 Surgeon: Surgeon(s) and Role: [...] Operative Note Patient Name: Alix Holland : [id number] MR#: [id number] Case Date: 02/04/2022 Surgeon: Surgeon(s) and Role: [...] Garcia MD - 02/04/2022 5:[address] [facility] Operative Note Patient Name: Alix Holland : [id number] MR#: [id number] Case Date: 02/04/2022 Surgeon: Surgeon(s) and Role: [...] (WRVU 4.1) performed by Tom Valdovinos MD [facility] MAIN OR ? ? PRO DEBRIDEMENT BONE MUSCLE &/FASCIA 20 SQ CM/< Left 01/31/2022 DEBRIDEMENT SKIN, SUBCU, MUSCLE, BONE, LOWER EXTREMITY (WRVU 4.1) performed by Jose Branch MD at [facility] MAIN OR ? ? PRO DEBRIDEMENT BONE MUSCLE &/FASCIA 20 SQ CM/< Left 01/31/2022 DEBRIDEMENT SKIN, SUBCU, MUSCLE, BONE UPPER EXTREMITY (WRVU 4.1) performed by Jose Branch MDat [facility] MAIN OR ? ? PRO DEBRIDEMENT BONE MUSCLE &/FASCIA 20 SQ CM/< Left 02/02/2022 DEBRIDEMENT SKIN, SUBCU, MUSCLE, BONE UPPER EXTREMITY (WRVU 4.1) performed by Hina Starks MD at [facility] MAIN OR ? ? PRO DEBRIDEMENT BONE MUSCLE &/FASCIA 20 SQ CM/< Left 02/02/2022 DEBRIDEMENT SKIN, SUBCU, MUSCLE, BONE, LOWER EXTREMITY (WRVU 4.1) performed by Hina Starks MD at [facility] OR ? ? PRO DEBRIDEMENT MUSCLE AND FASCIA 20 SQ CM/< Left 01/26/2022 DEBRIDEMENT SKIN, SUBCU, MUSCLE, LOWER EXTREMITY (WRVU 2.7) performed by Sigifredo Garcia MD at [facility] MAIN OR ? ? PRO DEBRIDEMENT MUSCLE AND FASCIA 20 SQ CM/< Left 01/26/2022 DEBRIDEMENT SKIN, SUBCU, MUSCLE, UPPER EXTREMITY (WRVU 2.7) performed by Sigifredo Garcia MD at [facility] MAIN OR ??? PRO DECOMP FOREARM, 2 COMPART, W/O DEBRIDE Left 01/23/2022 FASCIOTOMY; FOREARM AND\OR WRIST, FLEXOR & EXTENS. COMP (WRVU 10.79) performed by Sigifredo Garcia MD at [facility] MAIN OR ??? PRO DECOMPRESS ANT/LAT+POST LEG CMPART Left 01/23/2022 FASCIOTOMY, LOWER LEG, ALL COMPARTMENTS (WRVU 7.82) performed by Sigifredo Garcia MD at [facility] MAIN OR ??? PRO INCIS OF HIP/THIGH FASCIA Left 01/23/2022 @FASCIOTOMY,THIGH OR HIP FOR COMPARTMENT SYNDROME (WRVU 12.89) performed by Sigifredo Garcia MD at [facility] OR ??? PRO OPEN TREAT MANDIBLE CONDYLE FX, COMPL 04/27/2013 OPEN TREATMENT, COMPLEX MANDIBLE FX., MULTI APPROACH, W/ FIXATION performed by Kishore Neil MD at [facility] OR ??? PRO REVISE MEDIAN N/CARPAL TUNNEL SURG Left 01/23/2022 MEDIAN NERVE DECOMPRESSION (CARPAL TUNNEL RELEASE) (WRVU 4.97) performed by Sigifredo Garcia MD at [facility] MAIN OR ??? PRO SEC CLSR SURG WOUND/DEHSN EXTENSIVE/COMPLICATED Left 01/26/2022 SECONDARY CLOSURE SURGICAL WOUND OR DEHISCENCE, EXTENSIVE OR COMPLICATED, UPPER EXTREMITY (WRVU 12.04) performed by Sigifredo Garcia MD at [facility] OR MEDS: No current facility-administered medications on [...] Kenny Brandon MD Plastic surgery team pager: [phone] Attending: Plan discussed and agree as documented. [...] PCP: None Primary Team #: ICU (Juan #[id number]) CC: findings of CTH HPI: Alix Holland [...] he was following commands upon arrival to [facility] ICU. CTH showed bilateral symmetric globus pallidi [...] no acute intervention Today: - pain control: LAYER OFF, received dilaudid IV x 1 yesterday for breakthrough. > APS following for pain control recs - reports significant pain in LUE mainly this AM '05/10' Current Medications: Scheduled Meds: ??? LAYER OFF shift total and Settings verification Intravenous 2 Times Daily- LAYER OFF Shift Total ??? vancomycin 125 mg Oral [...] (WRVU 4.1) performed by Tom Valdovinos MD [facility] MAIN OR ? ? PRO DEBRIDEMENT BONE MUSCLE &/FASCIA 20 SQ CM/< Left 01/31/2022 DEBRIDEMENT SKIN, SUBCU, MUSCLE, BONE, LOWER EXTREMITY (WRVU 4.1) performed by Jose Branch MD at [facility] MAIN OR ? ? PRO DEBRIDEMENT BONE MUSCLE &/FASCIA 20 SQ CM/< Left 01/31/2022 DEBRIDEMENT SKIN, SUBCU, MUSCLE, BONE UPPER EXTREMITY (WRVU 4.1) performed by Jose Branch, Ferdinandt [facility] MAIN OR ? ? PRO DEBRIDEMENT MUSCLE AND FASCIA 20 SQ CM/< Left 01/26/2022 DEBRIDEMENT SKIN, SUBCU, MUSCLE, LOWER EXTREMITY (WRVU 2.7) performed by Sigifredo Garcia MD at [facility] MAIN OR ? ? PRO DEBRIDEMENT MUSCLE AND FASCIA 20 SQ CM/< Left 01/26/2022 DEBRIDEMENT SKIN, SUBCU, MUSCLE, UPPER EXTREMITY (WRVU 2.7) performed by Sigifredo Garcia MD at [facility] MAIN OR ??? PRO DECOMP FOREARM, 2 COMPART, W/O DEBRIDE Left 01/23/2022 FASCIOTOMY; FOREARM AND\OR WRIST, FLEXOR & EXTENS. COMP (WRVU 10.79) performed by Sigifredo Garcia MD at [facility] MAIN OR ??? PRO DECOMPRESS ANT/LAT+POST LEG CMPART Left 01/23/2022 FASCIOTOMY, LOWER LEG, ALL COMPARTMENTS (WRVU 7.82) performed by Sigifredo Garcia MD at [facility] MAIN OR ??? PRO INCIS OF HIP/THIGH FASCIA Left 01/23/2022 @FASCIOTOMY,THIGH OR HIP FOR COMPARTMENT SYNDROME (WRVU 12.89) performed by Sigifredo Garcia MD at [facility] OR ??? PRO OPEN TREAT MANDIBLE CONDYLE FX, COMPL 04/27/2013 OPEN TREATMENT, COMPLEX MANDIBLE FX., MULTI APPROACH, W/ FIXATION performed by Kishore Neil MD at [facility] MAIN OR ??? PRO REVISE MEDIAN N/CARPAL TUNNEL SURG Left 01/23/2022 MEDIAN NERVE DECOMPRESSION (CARPAL TUNNEL RELEASE) (WRVU 4.97) performed by Sigifredo Garcia MD at [facility] OR ??? PRO SEC CLSR SURG WOUND/DEHSN EXTENSIVE/COMPLICATED Left 01/26/2022 SECONDARY CLOSURE SURGICAL WOUND OR DEHISCENCE, EXTENSIVE OR COMPLICATED, UPPER EXTREMITY (WRVU 12.04) performed by Sigifredo Garcia MD at [facility] MAIN OR Home Medications: No current [...] year, name, knows why he is at [facility], knows he is at [facility], follows complex commands. Very sleepy on exam, [...] his local injuriesand post-surgical changes than his ENFORCEMENT MANAGER findings. No additional workup or intervention indicated [...] from the original note were not included. [facility] Operative Note Patient Name: Alix Holland : [id number] MR#: [id number] Case Date: 02/02/2022 Surgeon: Surgeon(s) and Role: * Hina Starks MD - Primary * Ama Dickerson PA - Physician Sales Operations Assistant * Terry Vázquez MD - Resident Preoperative [...] N/A Prescription Coverage: No Preferred Pharmacy: [facility], [place] - 10 [facility] [address] [facility] [id number] [email or web address] [address] - [place], [place] - [address] [place] [address] Plan for discharge is: Pending Hospital Course [...] changes of note to overall assessment. Dilaudid LAYER OFF with good effect on pain. Pt slept [...] w/ minimal effect. Pt switched over to LAYER OFF pump w/ some improvement in pain. Wound [...] Branch MD - 01/31/2022 11:[address] [facility] Operative Note Patient Name: Alix Holland : [id number] MR#: [id number] Case Date: 01/31/2022 Surgeon: Surgeon(s) and Role: [...] Patient was met in his room, green ekuk was placed in the left upper and [...] Valdovinos MD - 01/29/2022 3:[address] [facility] Operative Note Patient Name: Alix Holland : [id number] MR#: [id number] Case Date: 01/29/2022 Surgeon: Surgeon(s) and Role: [...] after fentanyl overdose. He was taken to [facility] where he had a cardiac arrest,??ROSC, and??he was intubated and sedated. He??[facility]. ??Labs showed he [...] then extubated and [facility] without any complication. Dr. Valdovinos [...] Modi MD 01/29/2022 Acute Pain Service Pager: [phone] I have seen and examined the patient, [...] Major MD 01/28/2022 Acute Pain Service Pager: [phone] Associated attestation - Nathan Ricardo MD - [...] Major MD 01/27/2022 Acute Pain Service Pager: [phone] Associated attestation - Nathan Ricardo MD - 02/03/2022 4:20 PM EDT I have seen and examined the patient, providing hutton components as outlined below. I have reviewed the resident???s above note; Consult Note - Adela Hackett DO - 01/27/2022 9:05 AM EDT Neurology Consultation Note - 01/27/2022 Patient name: Alix Holland Date of : 1990 PCP: None Primary Team #: ICU (Juan #[id number]) CC: findings of CTH HPI: Alix Holland [...] he was following commands upon arrival to [facility] ICU. CTH showed bilateral symmetric globus pallidi [...] 4.1) performed by Sigifredo Garcia MD at [facility] MAIN OR ? ? PRO DEBRIDEMENT BONE MUSCLE &/FASCIA 20 SQ CM/< Left 01/26/2022 DEBRIDEMENT SKIN, SUBCU, MUSCLE, BONE, LOWER EXTREMITY (WRVU 4.1) performed by Sigifredo Garcia MD [facility] MAIN OR ??? PRO DECOMP FOREARM, 2 COMPART, W/O DEBRIDE Left 01/23/2022 FASCIOTOMY; FOREARM AND\OR WRIST, FLEXOR & EXTENS. COMP (WRVU 10.79) performed by Sigifredo Garcia MD at [facility] MAIN OR ??? PRO DECOMPRESS ANT/LAT+POST LEG CMPART Left 01/23/2022 FASCIOTOMY, LOWER LEG, ALL COMPARTMENTS (WRVU 7.82) performed by Sigifredo Garcia MD at [facility] MAIN OR ??? PRO INCIS OF HIP/THIGH FASCIA Left 01/23/2022 @FASCIOTOMY,THIGH OR HIP FOR COMPARTMENT SYNDROME (WRVU 12.89) performed by Sigifredo Garcia MD at [facility] MAIN OR ??? PRO OPEN TREAT MANDIBLE CONDYLE FX, COMPL 04/27/2013 OPEN TREATMENT, COMPLEX MANDIBLE FX., MULTI APPROACH, W/ FIXATION performed by Kishore Neil MD at [facility] MAIN OR ??? PRO REVISE MEDIAN N/CARPAL TUNNEL SURG Left 01/23/2022 MEDIAN NERVE DECOMPRESSION (CARPAL TUNNEL RELEASE) (WRVU 4.97) performed by Sigifredo Garcia MD at [facility] MAIN OR Home Medications: No current [...] year, name, knows why he is at [facility], knows he is at [facility], follows complex commands. CN: PERRL, EOMI Tongue [...] as documented. Josh Boyd D.O. Neurology Department [facility] [email or web address] Plan of Care - Halley Hoyt RN [...] Garcia MD - 01/26/2022 4:[address] [facility] Operative Note Patient Name: Alix Holland : [id number] MR#: [id number] Case Date: 01/26/2022 Surgeon: Surgeon(s) and Role: [...] after fentanyl overdose. He was taken to [facility] where he had a cardiac arrest, ROSC, and he was intubated and sedated. He was then transferred to [facility] for [facility] care. Labs showed he had [...] Insurance: N/A Prescription Coverage: Yes Preferred Pharmacy: [email or web address] [phone] [email or web address] [address] - [place], [place] - [address] [facility] 55 [facility] [address] Plan for discharge is: Pending Hospital Course [...] Component Value Date COVID19 Detected (A) 01/23/2022 [id number] Not Detected 04/26/2021 Past medical History: Past [...] Alix) would be surrogate decision maker per [place] surrogate decision making law. (Only good for 180 days) Any patient receiving care at [facility] must abide by [place] law. The hierarchy for surrogate decision making [...] (i) The agent with financial power of consumer attorney or a conservator appointed in accordance [...] Current DME: none Home Address listed as: [address] [address] Social & Family Supports: All names listed below confirmed with patient as current and correct Extended Emergency Contact Information Primary Emergency Contact: Josefina Holland Relation: Mother Secondary Emergency Contact: Marylou Holland [facility] Relation: Sibling Father: Alix Holland [facility] Current Care Provided by: self Provides [...] Insurance: N/A Prescription Coverage: No [facility] [place] [address] [facility] [address] [facility] [id number] [email or web address] [address]58 - [place], [place] - [address] [facility] [address] Status: Patient is a : No Primary [...] of care planning. ARIN Lieberman, M-SW Continuing Ross Carrier DriverPastry Finisher of Neurology [phone] Consult Note - Adela Hackett DO - 01/25/2022 9:59 AM EDT Neurology Consultation Note - 01/25/2022 Patient name: Alix Holland Date of : 1990 PCP: None Primary Team #: ICU (Juan #[id number]) CC: findings of CTH HPI: Alix Holland [...] he was following commands upon arrival to [facility]. CTH showed bilateral symmetric globus pallidi [...] 10.79) performed by Sigifredo Garcia MD at [facility] MAIN OR ??? PRO DECOMPRESS ANT/LAT+POST LEG CMPART Left 01/23/2022 FASCIOTOMY, LOWER LEG, ALL COMPARTMENTS (WRVU 7.82) performed by Sigifredo Garcia MD at [facility] MAIN OR ??? PRO INCIS OF HIP/THIGH FASCIA Left 01/23/2022 @FASCIOTOMY,THIGH OR HIP FOR COMPARTMENT SYNDROME (WRVU 12.89) performed by Sigifredo Garcia MD at [facility] MAIN OR ??? PRO OPEN TREAT MANDIBLE CONDYLE FX, COMPL 04/27/2013 OPEN TREATMENT, COMPLEX MANDIBLE FX., MULTI APPROACH, W/ FIXATION performed by Kishore Neil MD at [facility] MAIN OR ??? PRO REVISE MEDIAN [...] Hackett, DO Neurology PGY-2 Neurology Consult Service# [id number] 01/25/2022 Associated attestation - Josh Boyd DO [...] as documented. Josh Boyd D.O. 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 All Active TF Orders: Nepro with goal [...] encounter: 113 kg (249 lb 1.9 oz). Reliance Body Weight: 81 kg Usual Body Weight: [...] today for wound vacs. Estimated needs: Calories: [phone] (20-25 kcal/kg IBW) for the first 7-10 [...] inpatient Thank you, Charlotte Castañeda RD Pager #:[phone] Plan of Care - Forest Blankenship RN [...] PCP: None Primary Team #: ICU (Green #[id number]) CC: findings of CTH HPI: Alix Holland [...] he was following commands upon arrival to [facility] ICU. CTH showed bilateral symmetric globus pallidi [...] FIXATION performed by Kishore Neil MD at [facility] MAIN OR Home Medications: No current [...] >220,000 (H) 0 - 200 unit/L TSH [place] Result Value Ref Range TSH 7.69 (H) [...] mcL Appearance UA Cloudy (A) Clear Spec [place] UA >=1.030 (A) 1.006 - 1.030 Color [...] as documented. Josh Boyd D.O. Neurology Department [facility] [email or web address] Op Note - Sigifredo Garcia MD - 01/23/2022 8:[address] [facility] Operative Note Patient Name: Alix Holland : [id number] MR#: [id number] Case Date: 01/23/2022 Surgeon: Surgeon(s) and Role: [...] after fentanyl overdose. He was taken to [facility] where he had a cardiac arrest, ROSC, and he was intubated and sedated. He was then transferred to [facility] for urther care. Labs showed he had hyperkalemia, acidosis, ALTHEA. There was concern for a swollen left forearm so orthopedics was consulted. On exam his forearm was firm, but exam was limited due to patient's mental status. Therefore SendMe pressure monitor was used to measure the [...] to the transverse carpal ligament. Using a [place] and [facility] retractors, the transverse carpal ligament was exposed [...] evaluation and treatment. Please page Orthopaedic consults (1918) with any questions or co ncerns. ?? [...] father afterfentanyl overdose. He was taken to [facility] where he had a cardiac arrest, ROSC, and he was intubated and sedated. He was then transferred to [facility] for further care. Labs showed he had [...] Procedure visit Neurology Summer Wiggins MD [facility] NEUROLOGY DEPT [place], [place] [address] (Wo rk) Pending Results Name [...] STAT 02/08/2022 12:01 Resul ts for this ([facility]) AM EDT procedure are i n the [...] are i n the results section. CT EEK OF PLAZA W Routine 01/24/2022 11:32 Re [...] P athologist Signature Neutrophils % 65.3 % [facility] LABOR[facility]ORY Neutr Abs (ANC) 5.26 1.70 - [facility] 6.10 [facility] x10(3)/[facility] LABORATORY Lymphocytes % 17.2 % [facility] Lymphocytes Abs 1.4 0.9 - 3.2 [facility] x10(3)/[facility] LABORATORY Monocytes % 11.0 % [facility] Monocyte Abs 0.9 0.3 - 0.9 [facility] x10(3)/[facility] LABORATORY Eosinophils % 4.6 % [facility] Eosinophils Abs 0.4 0.0 - 0.4 [facility] x10(3)/[facility] LABORATORY Basophils % 0.7 % [facility] Basophils Abs 0.1 0.0 - 0.1 [place] 442780(3)/[facility] LABORATORY Immature Gran % 1.20 % [facility] Comment: Immature granulocytes(IG's)percentage an d absolute count will include metamyelocytes, myelocytes, and promyelo cytes. Blood smears from CBCs yielding IG's will be scanned manually for concor dance. If this scan disagrees with the automated IG or if promyelocytes are not ed, a manual differential will be performed. Gemini Gran Abs 0.10 (H) 0.00 - 0.04 x10(3)/[facility] LABORATORY Specimen Anatomical Collection Method Collection Time Receive d Time (Source) Location / / Volume Laterality Blood 03/23/2022 4:35 AM 5:10 EDT AM EDT Resulting Agency Comment Spec In Lab Jhony Carnes MD HEMATOLOGY ORDERABLES Performing Organization Address City/State/[place] [address] (ABNORMAL) Hemogram (03/23/2022 4:35 AM EDT) Analysis Performed At Patho logist Time Signature WBC 8.1 4.0 - 9.5 [facility] x10(3)/[facility] LABORATORY RBC 2.96 (L) 4.58 - [facility] 5.54 [facility] x10(6)/[facility] LABORATORY Hemoglobin 8.9 (L) 13.7 - [facility] 16.[facility] g/dL [facility] Hematocrit 26.2 (L) 40.5 - [facility] 48.5 % [facility] MCV 88.5 82.9 - [facility] 93.1 [facility] LABORATORY MCH 30.1 27.5 - [facility] 32.1 pg [facility] MCHC 34.0 32.0 - [facility] 35.7 g/dL [facility] Platelets 230 145 - 357 [facility] x10(3)/[facility] LABORATORY RDWSD 48.9 (H) 36.0 - [facility] 45.0 [facility] LABORATORY RDWCV 15.3 (H) 11.4 - [facility] 13.8 % [facility] LAB[facility] MPV 9.8 7.6 - 12.9 [facility] LABORATORY nRBC % Auto 0.0 % [facility] LABOR[facility]ORY nRBC Abs Auto 0.000 0.000 - [facility] 0.000 [facility] x10(3)/[facility] LABORATORY Specimen Anatomical Collection Method Collection Time Receive d Time (Source) Location / / Volume Laterality Blood 03/23/2022 4:35 AM 2 5:10 EDT AM EDT Resulting Agency Comment Spec In Lab Jhony Carnes MD HEMATOLOGY ORDERABLES Performing Organization Address City/State/[place] [address] (ABNORMAL) Basic Metabolic Panel (non-fasting) (03/23/2022 3:00 AM EDT) P athologist Signature Glucose Lvl 102 65 - 199 [facility] mg/dL [facility] Comment: Diabetes: >=200 mg/dL plus symp toms BUN 15 10 - 20 mg/dL [facility] Creatinine 0.55 (L) 0.80 - 1.50 mg/dL [facility] LABOR[facility]ORY Sodium 139 135 - 145 mmol/L [facility] Potassium 4.1 3.5 - 5.0 mmol/L [facility] Comment: Please note: ??Patients with WBC >100,00 0 may have falsely elevated Potassium levels. ??For accurate Potassium quantif ication in these patients send serum separator tube (gold top) for subsequent determinations. ??Contact the Clinical Chemistry Laboratory if there are any qu estions. Chloride 101 98 - 107 mmol/L [facility] CO2 25 22 - 31 mmol/L [facility] Anion Gap 13 5 - 15 mmol/L [facility] Calcium 9.6 8.5 - 10.5 mg/dL [facility] Estimated GFR 137 >=60 mL/min/1.73 m?? [facility] Comment: This patient's estimated [...] Organization Address City/State/[place] [address] (ABNORMAL) Differential, Automated (03/22/2022 4:15 AM EDT) [facility] Method Time Signature Neutrophils % 63.3 % [facility] LABORATORY Neutr Abs (ANC) 5.68 1.70 - [facility] 6.10 [facility] x10(3)/[facility] LABORATORY Lymphocytes % 17.7 % [facility] LABORATORY Lymphocytes Abs 1.6 0.9 - 3.2 [facility] x10(3)/[facility] LABORATORY Monocytes % 12.3 % [facility] LABORATORY Monocyte Abs 1.1 (H) 0.3 - 0.9 [facility] x10(3)/[facility] LABORATORY Eosinophils % 4.3 % [facility] LABORATORY Eosinophils Abs 0.4 0.0 - 0.4 [facility] x10(3)/[facility] LABORATORY Basophils % 0.7 % [facility] LABORATORY Basophils Abs 0.1 0.0 - 0.1 [facility] x10(3)/[facility] LABORATORY Immature Gran % 1.70 % [facility] LABORATORY Comment: Immature granulocytes(IG's)percentage an d absolute count will include metamyelocytes, myelocytes, and promyelo cytes. Blood smears from CBCs yielding IG's will be scanned manually for concor dance. If this scan disagrees with the automated IG or if promyelocytes are not ed, a manual differential will be performed. Gemini Gran Abs 0.15 (H) 0.00 - 0.04 x10(3)/[facility] LABORATORY Specimen Anatomical Collection Method Collection Time Receive d Time (Source) Location / / Volume Laterality Blood 03/22/2022 4:15 AM 4:35 EDT AM EDT Resulting Agency Comment Spec In Lab Batsheva Hill MD HEMATOLOGY ORDERABLES Performing Organization Address City/State/[place] [address] (ABNORMAL) Hemogram (03/22/2022 4:15 AM EDT) Analysis Performed At Patho logist Time Signature WBC 9.0 4.0 - 9.5 [facility] x10(3)/[facility] LABORATORY RBC 3.20 (L) 4.58 - [facility] 5.54 [facility] x10(6)/[facility] LABORATORY Hemoglobin 9.5 (L) 13.7 - [facility] 16.5 g/dL [facility] LABORATORY Hematocrit 28.0 (L) 40.5 - [facility] 48.5 % [facility] LABORATORY MCV 87.5 82.9 - [facility] [place] 93.1 [facility] LABORATORY MCH 29.7 27.5 - [facility] [place] 32.1 pg [facility] LABORATORY MCHC 33.9 32.0 - [facility] [place] 35.7 g/dL [facility] LABORATORY Platelets 248 145 - 357 [facility] x10(3)/[facility] LABORATORY RDWSD 47.8 (H) 36.0 - [facility] [place] 45.0 [facility] LABORATORY RDWCV 14.9 (H) 11.4 - [facility] [place] 13.8 % [facility] LABORATORY MPV 8.8 7.6 - 12.9 [facility] LABORATORY nRBC % Auto 0.0 % [facility] LABORATORY nRBC Abs Auto 0.000 0.000 - [facility] [place] 0.000 [facility] x10(3)/[facility] LABORATORY Specimen Anatomical Collection Method Collection Time Receive d Time (Source) Location / / Volume Laterality Blood 03/22/2022 4:15 AM 4:35 EDT AM EDT Resulting Agency Comment Spec In Lab Batsheva Hill MD HEMATOLOGY ORDERABLES Performing Organization Address City/State/[place] [address] (ABNORMAL) Basic Metabolic Panel (non-fasting) (03/22/2022 4:15 AM EDT) P athologist Signature Glucose Lvl 98 65 - 199 [facility] mg/dL [facility] LABORATORY Comment: Diabetes: >=200 mg/dL plus symp toms BUN 16 10 - 20 mg/dL [facility] LABORATORY Creatinine 0.52 (L) 0.80 - 1.50 mg/dL [facility] LABORATORY Sodium 137 135 - 145 mmol/L [facility] LABORATORY Potassium 4.0 3.5 - 5.0 mmol/L [facility] LABORATORY Comment: Please note: ??Patients with WBC >100,00 0 may have falsely elevated Potassium levels. ??For accurate Potassium quantif ication in these patients send serum separator tube (gold top) for subsequent determinations. ??Contact the Clinical Chemistry Laboratory if there are any qu estions. Chloride 100 98 - 107 mmol/L [facility] LABORATORY CO2 24 22 - 31 mmol/L [facility] LABORATORY Anion Gap 13 5 - 15 mmol/L [facility] LABORATORY Calcium 9.6 8.5 - 10.5 mg/dL [facility] LABORATORY Estimated GFR 139 >=60 mL/min/1.73 m?? [facility] LABORATORY Comment: This patient's estimated [...] Organization Address City/State/[place] [address] (ABNORMAL) Basic Metabolic Panel (non-fasting) (03/20/2022 12:27 PM EDT) P athologist Signature Glucose Lvl 94 65 - 199 [facility] mg/dL [facility] LABORATORY Comment: Diabetes: >=200 mg/dL plus symp toms BUN 13 10 - 20 mg/dL [facility] LABORATORY Creatinine 0.67 (L) 0.80 - 1.50 mg/dL [facility] LABORATORY Sodium 140 135 - 145 mmol/L [facility] LABORATORY Potassium 4.3 3.5 - 5.0 mmol/L [facility] LABORATORY Comment: Please note: ??Patients with WBC >100,00 0 may have falsely elevated Potassium levels. ??For accurate Potassium quantif ication in these patients send serum separator tube (gold top) for subsequent determinations. ??Contact the Clinical Chemistry Laboratory if there are any qu estions. Chloride 104 98 - 107 mmol/L [facility] LABORATORY CO2 23 22 - 31 mmol/L [facility] LABORATORY Anion Gap 13 5 - 15 mmol/L [facility] LABORATORY Calcium 9.6 8.5 - 10.5 mg/dL [facility] LABORATORY Estimated GFR 129 >=60 mL/min/1.73 m?? [facility] LABORATORY Comment: This patient's estimated [...] Organization Address City/State/[place] [address] Green Tube HOLD (03/20/2022 12:27 PM EDT) athologist Signature Green Hold Sample in [facility] LABORATORY Comment: Collection date/time has been modified [...] MD CHEMISTRY ORDERABLES Performing Organization Address City/[facility]/ZIP Code Phon e Number [address] Phosphorus (03/20/2022 12:00 PM EDT) P athologist Signature Phosphorus 3.8 2.5 - 4.5 [facility] LABORATORY Specimen Anatomical Collection Method Collection Time Receive d Time (Source) Location / / Volume Laterality Blood 03/20/2022 12:00 03/20/2022 PM EDT 12:26 PM EDT Resulting Agency Comment Spec In Lab Jeanette Chatterjee MD CHEMISTRY ORDERABLES Performing Organization Address City/[facility]/ZIP [place] [address] Magnesium (03/20/2022 12:00 PM EDT) P athologist Signature Magnesium 0.75 0.69 - 1.07 [facility] mmol/L [facility] LABORATORY Specimen Anatomical Collection Method Collection Time Receive d Time (Source) Location / / Volume Laterality Blood 03/20/2022 12:00 03/20/2022 PM EDT 12:26 PM EDT Resulting Agency Comment Spec In Lab Jeanette Chatterjee MD CHEMISTRY ORDERABLES Performing Organization Address City/[facility]/ZIP [facility] Phon e Number [address] Vancomycin, trough (03/14/2022 3:09 PM EDT) P athologist Signature Vanc Trough 16.1 mg/L [facility] LABORATORY Comment: Therapeutic range for complicated [...] Organization Address City/State/[place] [address] (ABNORMAL) Differential, Automated (03/13/2022 6:02 AM EDT) athologist Signature Neutrophils % 68.2 % [facility] LABORATORY Neutr Abs (ANC) 5.47 1.70 - [facility] 6.10 [facility] x10(3)/[facility] LABORATORY Lymphocytes % 17.0 % [facility] LABORATORY Lymphocytes Abs 1.4 0.9 - 3.2 [facility] x10(3)/[facility] LABORATORY Monocytes % 8.0 % [facility] LABORATORY Monocyte Abs 0.6 0.3 - 0.9 [facility] x10(3)/[facility] LABORATORY Eosinophils % 4.2 % [facility] LABORATORY Eosinophils Abs 0.3 0.0 - 0.4 [facility] x10(3)/[facility] LABORATORY Basophils % 0.5 % [facility] LABORATORY Basophils Abs 0.0 0.0 - 0.1 [facility] x10(3)/[facility] LABORATORY Immature Gran % 2.10 % [facility] LABORATORY Comment: Immature granulocytes(IG's)percentage an d absolute count will include metamyelocytes, myelocytes, and promyelo cytes. Blood smears from CBCs yielding IG's will be scanned manually for concor dance. If this scan disagrees with the automated IG or if promyelocytes are not ed, a manual differential will be performed. Gemini Gran Abs 0.17 (H) 0.00 - 0.04 x10(3)/[facility] LABORATORY Specimen Anatomical Collection Method Collection Time Receive d Time (Source) Location / / Volume Laterality Blood 03/13/2022 6:02 AM 2 6:17 EDT AM EDT Resulting Agency Comment Spec In Lab Nancy Chahal MD HEMATOLOGY ORDERABLES Performing Organization Address City/State/[place] [address] (ABNORMAL) Hemogram (03/13/2022 6:02 AM EDT) Analysis Performed At Patho logist Time Signature WBC 8.0 4.0 - 9.5 [facility] x[facility](3[facility] LABORATORY RBC 3.12 (L) 4.58 - [facility] 5.54 [facility] x10(6)/[facility] LABORATORY Hemoglobin 9.1 (L) 13.7 - [facility] 16.5 g/dL [facility] LABORATORY Hematocrit 27.5 (L) 40.5 [facility] % [facility] LABORATORY MCV 88.1 82.9 - [facility] 93.1 [facility] LABORATORY MCH 29.2 27.5 - [facility] [place] 32.1 pg [facility] LABORATORY MCHC 33.1 32.0 - [facility] 35.7 g/dL [facility] LABORATORY Platelets 254 145 - 357 [facility] x10(3)/[facility] LABORATORY RDWSD 49.4 (H) 36.0 - [facility] 45.0 [facility] LABORATORY RDWCV 15.5 (H) 11.4 - [facility] 13.8 % [facility] LABORATORY MPV 8.4 7.6 - 12.9 [facility] nRBC % Auto 0.0 % [facility] LABORATORY nRBC Abs Auto 0.000 0.000 - [facility] 0.000 [facility] x10(3)/[facility] LABORATORY Specimen Anatomical Collection Method Collection Time Receive d Time (Source) Location / / Volume Laterality Blood 03/13/2022 6:02 AM 2 6:17 EDT AM EDT Resulting Agency Comment Spec In Lab Nancy Chahal MD HEMATOLOGY ORDERABLES Performing Organization Address City/State/ZIP Code Phon e Number [place] (ABNORMAL) Phosphorus (03/13/2022 6:02 AM EDT) athologist Signature Phosphorus 4.9 (H) 2.5 - 4.5 [facility] mg/dL [facility] LABORATORY Specimen Anatomical Collection Method Collection Time Receive d Time (Source) Location / / Volume Laterality Blood 03/13/2022 6:02 AM 2 6:17 EDT AM EDT Resulting Agency Comment Spec In Lab Floridalma Sandoval MD CHEMISTRY ORDERABLES Performing Organization Address City/State/ZIP Code Phon e Number [address] Magnesium (03/13/2022 6:02 AM EDT) athologist Signature Magnesium 0.70 0.69 - 1.07 [facility] mmol/L [facility] LABORATORY Specimen Anatomical Collection Method Collection Time Receive d Time (Source) Location / / Volume Laterality Blood 03/13/2022 6:02 AM 2 6:17 EDT AM EDT Resulting Agency Comment Spec In Lab Floridalma Sandoval MD CHEMISTRY ORDERABLES Performing Organization Address City/[facility]/ZIP Code Phon e Number [address] (ABNORMAL) Basic Metabolic Panel (non-fasting) (03/13/2022 6:02 AM EDT) athologist Signature Glucose Lvl 100 65 - 199 [facility] mg/dL [facility] LABORATORY Comment: Diabetes: >=200 mg/dL plus symp toms BUN 12 10 - 20 mg/dL [facility] LABORATORY Creatinine 0.65 (L) 0.80 - 1.50 mg/dL [facility] LABORATORY Sodium 139 135 - 145 mmol/L [facility] LABORATORY Potassium 3.9 3.5 - 5.0 mmol/L [facility] LABORATORY Comment: Please note: ??Patients with WBC >100,00 0 may have falsely elevated Potassium levels. ??For accurate Potassium quantif ication in these patients send serum separator tube (gold top) for subsequent determinations. ??Contact the Clinical Chemistry Laboratory if there are any qu estions. Chloride 101 98 - 107 mmol/L [facility] LABORATORY CO2 25 22 - 31 mmol/L [facility] LABORATORY Anion Gap 13 5 - 15 mmol/L [facility] LABORATORY Calcium 9.6 8.5 - 10.5 mg/dL [facility] LABORATORY Estimated GFR 130 >=60 mL/min/1.73 m?? [facility] LABORATORY Comment: This patient's estimated [...] Organization Address City/State/[place] [address] (ABNORMAL) Differential, Automated (03/10/2022 5:45 AM EDT) [facility] gist Method Time Signature Neutrophils % 58.5 % [facility] LABORATORY Neutr Abs (ANC) 4.21 1.70 - [facility] 6.10 [facility] x10(3)/[facility] LABORATORY Lymphocytes % 17.8 % [facility] LABORATORY Lymphocytes Abs 1.3 0.9 - 3.2 [facility] x10(3)/[facility] LABORATORY Monocytes % 13.5 % [facility] LABORATORY Monocyte Abs 1.0 (H) 0.3 - 0.9 [facility] x10(3)/[facility] LABORATORY Eosinophils % 5.3 % [facility] LABORATORY Eosinophils Abs 0.4 0.0 - 0.4 [facility] x10(3)/[facility] LABORATORY Basophils % 0.6 % [facility] LABORATORY Basophils Abs 0.0 0.0 - 0.1 [facility] x10(3)/[facility] LABORATORY Immature Gran % 4.30 % [facility] LABORATORY Comment: Immature granulocytes(IG's)percentage an d absolute count will include metamyelocytes, myelocytes, and promyelo cytes. Blood smears from CBCs yielding IG's will be scanned manually for concor dance. If this scan disagrees with the automated IG or if promyelocytes are not ed, a manual differential will be performed. Gemini Gran Abs 0.31 (H) 0.00 - 0.04 x10(3)/[facility] LABORATORY Specimen Anatomical Collection Method Collection Time Receive d Time (Source) Location / / Volume Laterality Blood 03/10/2022 5:45 AM 6:05 EDT AM EDT Resulting Agency Comment Spec In Lab Nancy Chahal MD HEMATOLOGY ORDERABLES Performing Organization Address City/State/[place] [address] (ABNORMAL) Hemogram (03/10/2022 5:45 AM EDT) Analysis Performed At Patho logist Time Signature WBC 7.2 4.0 - 9.5 [facility] x10(3)/[facility] LABORATORY RBC 3.13 (L) 4.58 - [facility] 5.54 [facility] x10(6)/[facility] LABORATORY Hemoglobin 9.1 (L) 13.7 - [facility] 16.[facility] g/dL [facility] LABORATORY Hematocrit 27.3 (L) 40.5 - [facility] 48.5 % [facility] LABORATORY MCV 87.2 82.9 - [facility] 93.1 fL [facility] LABORATORY MCH 29.1 27.5 - [facility] 32.1 pg [facility] LABORATORY MCHC 33.3 32.0 - [facility] [place] 35.7 g/dL [facility] LABORATORY Platelets 256 145 - 357 [facility] [place] x10(3)/[facility] LABORATORY RDWSD 50.6 (H) 36.0 - [facility] [place] 45.0 [facility] LABORATORY RDWCV 15.9 (H) 11.4 - [facility] 13.8 % [facility] LABORATORY MPV 8.5 7.6 - 12.9 [facility] LABORATORY nRBC % Auto 0.0 % [facility] LABORATORY nRBC Abs Auto 0.000 0.000 - [facility] [place] 0.000 [facility] x10(3)/[facility] LABORATORY Specimen Anatomical Collection Method Collection Time Receive d Time (Source) Location / / Volume Laterality Blood 03/10/2022 5:45 AM 2 6:05 EDT AM EDT Resulting Agency Comment Spec In Lab Nancy Chahal MD HEMATOLOGY ORDERABLES Performing Organization Address City/State/ZIP Code Phon e Number [address] (ABNORMAL) Phosphorus (03/10/2022 5:45 AM EDT) P athologist Signature Phosphorus 4.6 (H) 2.5 - 4.5 [facility] mg/dL [facility] LABORATORY Specimen Anatomical Collection Method Collection Time Receive d Time (Source) Location / / Volume Laterality Blood 03/10/2022 5:45 AM 2 6:05 EDT AM EDT Resulting Agency Comment Spec In Lab Floridalma Sandoval MD CHEMISTRY ORDERABLES Performing Organization Address City/State/ZIP Code Phon e Number [address] Magnesium (03/10/2022 5:45 AM EDT) P athologist Signature Magnesium 0.77 0.69 - 1.07 [facility] mmol/L [facility] LABORATORY Specimen Anatomical Collection Method Collection Time Receive d Time (Source) Location / / Volume Laterality Blood 03/10/2022 5:45 AM 2 6:05 EDT AM EDT Resulting Agency Comment Spec In Lab Floridalma Sandoval MD CHEMISTRY ORDERABLES Performing Organization Address City/State/[place] [address] Basic Metabolic Panel (non-fasting) (03/10/2022 5:45 AM EDT) P athologist Signature Glucose Lvl 95 65 - 199 [facility] mg/dL [facility] LABORATORY Comment: Diabetes: >=200 mg/dL plus symp toms BUN 20 10 - 20 mg/dL [facility] LABORATORY Creatinine 0.85 0.80 - 1.50 mg/dL [facility] LABORATORY Sodium 142 135 - 145 mmol/L [facility] LABORATORY Potassium 4.0 3.5 - 5.0 mmol/L [facility] LABORATORY Comment: Please note: ??Patients with WBC >100,00 0 may have falsely elevated Potassium levels. ??For accurate Potassium quantif ication in these patients send serum separator tube (gold top) for subsequent determinations. ??Contact the Clinical Chemistry Laboratory if there are any qu estions. Chloride 103 98 - 107 mmol/L [facility] LABORATORY CO2 25 22 - 31 mmol/L [facility] LABORATORY Anion Gap 14 5 - 15 mmol/L [facility] LABORATORY Calcium 9.1 8.5 - 10.5 mg/dL [facility] LABORATORY Estimated GFR 120 >=60 mL/min/1.73 m?? [facility] LABORATORY Comment: This patient's estimated [...] MD CHEMISTRY ORDERABLES Performing Organization Address City/[facility]/ZIP Code Phon e Number [address] Anaerobic Culture (03/05/2022 11:05 AM EDT) [facility] Method Time Signature Anaerobic No anaerobic [facility] Culture organisms [facility] LABORATORY Specimen Anatomical Collection Method Collection Time Receive d Time (Source) Location / / Volume Laterality Fluid 03/05/2022 11:05 03/05/2022 AM EDT 12:02 PM EDT Comment: Fluid from left thigh Resulting Agency Comment Spec In Lab Elaine Dos Santos MD MICROBIOLOGY - GENERAL ORDER JT Performing Organization Address City/[facility]/ZIP [place] [address] (ABNORMAL) Body Fluid Culture, Aerobic (03/05/2022 11:05 AM EDT) Component Value Ref Test Analysis Performed At [email or web address] Range Method Time Signature Body Fluid Moderate Staphylococcus aureus, MRSA [facility] Culture Many Pseudomonas aeruginosa [facility] LABORATORY Gram Stain Cytocentrifuge Gram Stain performed [facility] Neutrophils seen [place] Rare Gram Positive Cocci seen [facility] Rare Gram Negative Rods seen [facility] LABORATORY Organism Staphylococcus [facility] aureus, MRSA (A) [facility] LABORATORY Organism Pseudomonas [facility] aeruginosa (A) [facility] LABORATORY Organism Gram Positive [facility] Cocci (A) [facility] LABORATORY Organism Gram Negative [facility] Rods (A) [facility] LABORATORY Specimen Anatomical Collection Method Collection Time [...] Comment: Gentamicin is not a ppropriate for [facility]-therapy. Staphylococcus aureus, mrsa Linezolid VITEK 2 METHOD [...] Organization Address City/State/[place] [address] (ABNORMAL) Basic Metabolic Panel (non-fasting) (03/04/2022 12:54 AM EDT) P athologist Signature Glucose Lvl 97 65 - 199 [facility] mg/dL [facility] LABORATORY Comment: Diabetes: >=200 mg/dL plus symp toms BUN 23 (H) 10 - 20 mg/dL [facility] LABORATORY Creatinine 1.23 0.80 - 1.50 mg/dL [facility] LABORATORY Sodium 141 135 - 145 mmol/L [facility] LABORATORY Potassium 3.7 3.5 - 5.0 mmol/L [facility] LABORATORY Comment: Please note: ??Patients with WBC >100,00 0 may have falsely elevated Potassium levels. ??For accurate Potassium quantif ication in these patients send serum separator tube (gold top) for subsequent determinations. ??Contact the Clinical Chemistry Laboratory if there are any qu estions. Chloride 101 98 - 107 mmol/L [facility] LABORATORY CO2 25 22 - 31 mmol/L [facility] LABORATORY Anion Gap 15 5 - 15 mmol/L [facility] LABORATORY Calcium 8.7 8.5 - 10.5 mg/dL [facility] LABORATORY Estimated GFR 81 >=60 mL/min/1.73 m?? [facility] LABORATORY Comment: This patient's estimated [...] Organization Address City/State/[place] [address] PICC Line: Contact Vascular Access Page [phone] Extremity to exclude: DO NOT use LEFT [...] the planned procedu re. Hand Hygiene: The ortho assistant did perform hand hygiene pr ior to line insertion. Catheter type: PICC Lot number: [id number] Procedure Technique: Skin was prepped with chlorhexidine. [...] who have questions please contact the health career technical education teacher that requested your imaging first. ? Electronically signed by: Danielle Figueroa MD, [facility] ([phone]), at 03/03/2022 2:49 PM Narrative 03/03/2022 2:49 [...] ho have questions please contact the health career technical education teacher that requested your imaging first. Jayme Armstrong MD IMG FLUORO ORDERABLES (ABNORMAL) Differential, Automated (03/03/2022 4:34 AM EDT) [facility] Method Time Signature Neutrophils % 49.2 % [facility] LABORATORY Neutr Abs (ANC) 3.20 1.70 - [facility] 6.10 [facility] x10(3)/[facility] LABORATORY Lymphocytes % 23.5 % [facility] LABORATORY Lymphocytes Abs 1.5 0.9 - 3.2 [facility] x10(3)/[facility] LABORATORY Monocytes % 12.9 % [facility] LABORATORY Monocyte Abs 0.8 0.3 - 0.9 [facility] x10(3)/[facility] LABORATORY Eosinophils % 10.4 % [facility] LABORATORY Eosinophils Abs 0.7 (H) 0.0 - 0.4 [facility] x10(3)/[facility] LABORATORY Basophils % 0.8 % [facility] LABORATORY Basophils Abs 0.0 0.0 - 0.1 [facility] x10(3)/[facility] LABORATORY Immature Gran % 3.20 % [facility] LABORATORY Comment: Immature granulocytes(IG's)percentage an d absolute count will include metamyelocytes, myelocytes, and promyelo cytes. Blood smears from CBCs yielding IG's will be scanned manually for ny crain. If this scan disagrees with the automated IG or if promyelocytes are not ed, a manual differential will be performed. Gemini Gran Abs 0.21 (H) 0.00 - 0.04 x10(3)/[facility] LABORATORY Specimen Anatomical Collection Method Collection Time Receive d Time (Source) Location / / Volume Laterality Blood 03/03/2022 4:34 AM 2 4:42 EDT AM EDT Resulting Agency Comment Spec In Lab Collette Valente MD HEMATOLOGY ORDERABLES Performing Organization Address City/State/ZIP Code Phon e Number [place] [id number] HOSPITAL LABORATORY Drive (ABNORMAL) Hemogram (03/03/2022 4:34 AM EDT) Analysis Performed At Patho logist Time Signature WBC 6.5 4.0 - 9.5 [facility] x[facility](3[facility] LABORATORY RBC 3.12 (L) 4.58 - [place] 5.54 [facility] x10(6)/[facility] LABORATORY Hemoglobin 9.1 (L) 13.7 - [facility] 16.5 g/dL [facility] LABORATORY Hematocrit 26.8 (L) 40.5 - [facility] 48.5 % [facility] LABORATORY MCV 85.9 82.9 - [facility] 93.1 [facility] LABORATORY MCH 29.2 27.5 - [place] 32.1 pg [facility] LABORATORY MCHC 34.0 32.0 - [place] 35.7 g/dL [facility] LABORATORY Platelets 276 145 - 357 [facility] x10(3)/[facility] LABORATORY RDWSD 50.6 (H) 36.0 - [facility] MANDO 45.0 [facility] LABORATORY RDWCV 16.1 (H) 11.4 - [facility] MANDO 13.8 % [facility] LABORATORY MPV 7.8 7.6 - 12.9 [facility] LABORATORY nRBC % Auto 0.0 % [facility] LABORATORY nRBC Abs Auto 0.000 0.000 - [place] 0.000 [facility] x10(3)/[facility] LABORATORY Specimen Anatomical Collection Method Collection Time Receive d Time (Source) Location / / Volume Laterality Blood 03/03/2022 4:34 AM 2 4:42 EDT AM EDT Resulting Agency Comment Spec In Lab Collette Valente MD HEMATOLOGY ORDERABLES Performing Organization Address City/State/ZIP [place] [address] Magnesium (03/03/2022 4:34 AM EDT) athologist Signature Magnesium 0.80 0.69 - 1.07 [facility]/L [facility] LABORATORY Specimen Anatomical Collection Method Collection Time Receive d Time (Source) Location / / Volume Laterality Blood 03/03/2022 4:34 AM 2 4:42 EDT AM EDT Resulting Agency Comment Spec In Lab Jayme Armstrong MD CHEMISTRY ORDERABLES Performing Organization Address City/[facility] [place] [address] (ABNORMAL) Phosphorus (03/03/2022 4:34 AM EDT) athologist Signature Phosphorus 5.1 (H) 2.5 - 4.5 [facility] mg/dL [facility] LABORATORY Specimen Anatomical Collection Method Collection Time Receive d Time (Source) Location / / Volume Laterality Blood 03/03/2022 4:34 AM 2 4:42 EDT AM EDT Resulting Agency Comment Spec In Lab Jayme Armstrong MD CHEMISTRY ORDERABLES Performing Organization Address City/[facility] [place] [address] (ABNORMAL) Basic Metabolic Panel (non-fasting) (03/03/2022 4:34 AM EDT) athologist Signature Glucose Lvl 105 65 - 199 [facility] mg/dL [facility] LABORATORY Comment: Diabetes: >=200 mg/dL plus symp toms BUN 28 (H) 10 - 20 mg/dL [facility] LABORATORY Creatinine 1.27 0.80 - 1.50 mg/dL [facility] LABORATORY Sodium 142 135 - 145 mmol/L [facility] LABORATORY Potassium 3.8 3.5 - 5.0 mmol/L [facility] LABORATORY Comment: Please note: ??Patients with WBC >100,00 0 may have falsely elevated Potassium levels. ??For accurate Potassium quantif ication in these patients send serum separator tube (gold top) for subsequent determinations. ??Contact the Clinical Chemistry Laboratory if there are any qu estions. Chloride 104 98 - 107 mmol/L [facility] LABORATORY CO2 25 22 - 31 mmol/L [facility] LABORATORY Anion Gap 13 5 - 15 mmol/L [facility] LABORATORY Calcium 9.0 8.5 - 10.5 mg/dL [facility] LABORATORY Estimated GFR 78 >=60 mL/min/1.73 m?? [facility] LABORATORY Comment: This patient's estimated [...] MD CHEMISTRY ORDERABLES Performing Organization Address City/[facility]/ZIP [place] [address] Albumin Level (03/02/2022 4:23 AM EDT) P athologist Signature Albumin 3.3 3.2 - 5.2 [facility] g/dL [facility] LABORATORY Specimen Anatomical Collection Method Collection Time Receive d Time (Source) Location / / Volume Laterality Blood Venous Draw / 03/02/2022 4:23 AM 03/02/20 4:53 Unknown EDT AM EDT Resulting Agency Comment Spec In Lab Nancy Chahal MD CHEMISTRY ORDERABLES Performing Organization Address City/State/ZIP [place] [address] (ABNORMAL) Basic Metabolic Panel (non-fasting) (03/02/2022 4:23 AM EDT) P athologist Signature Glucose Lvl 99 65 - 199 [facility] mg/dL [facility] LABORATORY Comment: Diabetes: >=200 mg/dL plus symp toms BUN 32 (H) 10 - 20 mg/dL [facility] LABORATORY Creatinine 1.33 0.80 - 1.50 mg/dL [facility] LABORATORY Sodium 138 135 - 145 mmol/L [facility] LABORATORY Potassium 4.1 3.5 - 5.0 mmol/L [facility] LABORATORY Comment: Please note: ??Patients with WBC >100,00 0 may have falsely elevated Potassium levels. ??For accurate Potassium quantif ication in these patients send serum separator tube (gold top) for subsequent determinations. ??Contact the Clinical Chemistry Laboratory if there are any qu estions. Chloride 100 98 - 107 mmol/L [facility] LABORATORY CO2 25 22 - 31 mmol/L [facility] LABORATORY Anion Gap 13 5 - 15 mmol/L [facility] LABORATORY Calcium 9.0 8.5 - 10.5 mg/dL [facility] LABORATORY Estimated GFR 74 >=60 mL/min/1.73 m?? [facility] LABORATORY Comment: This patient's estimated GFR was calcula karian using the 2020 CKD-EPI equation. The estimated [...] Organization Address City/State/[place] [address] (ABNORMAL) Differential, Automated (03/01/2022 2:00 AM EDT) [facility] Method Time Signature Neutrophils % 65.1 % [facility] LABORATORY Neutr Abs (ANC) 6.08 1.70 - [facility] 6.10 [facility] x10(3)/[facility] LABORATORY Lymphocytes % 15.0 % [facility] LABORATORY Lymphocytes Abs 1.4 0.9 - 3.2 [facility] x10(3)/[facility] LABORATORY Monocytes % 12.0 % [facility] LABORATORY Monocyte Abs 1.1 (H) 0.3 - 0.9 [facility] x10(3)/[facility] LABORATORY Eosinophils % 5.4 % [facility] LABORATORY Eosinophils Abs 0.5 (H) 0.0 - 0.4 [facility] x10(3)/[facility] LABORATORY Basophils % 0.6 % [facility] LABORATORY Basophils Abs 0.1 0.0 - 0.1 [facility] x10(3)/[facility] LABORATORY Immature Gran % 1.90 % [facility] LABORATORY Comment: Immature granulocytes(IG's)percentage an d absolute count will include metamyelocytes, myelocytes, and promyelo cytes. Blood smears from CBCs yielding IG's will be scanned manually for concor dance. If this scan disagrees with the automated IG or if promyelocytes are not ed, a manual differential will be performed. Gemini Gran Abs 0.18 (H) 0.00 - 0.04 x10(3)/[facility] LABORATORY Specimen Anatomical Collection Method Collection Time Receive d Time (Source) Location / / Volume Laterality Blood 03/01/2022 2:00 AM 2:03 EDT AM EDT Resulting Agency Comment Spec In Lab Veto Hidalgo MD HEMATOLOGY ORDERABLES Performing Organization Address City/State/[place] [address] (ABNORMAL) Hemogram (03/01/2022 2:00 AM EDT) Analysis Performed At Patho logist Time Signature WBC 9.3 4.0 - 9.5 [facility] x10(3)/[facility] LABORATORY RBC 2.92 (L) 4.58 - [facility] 5.54 [facility] x10(6)/[facility] LABORATORY Hemoglobin 8.5 (L) 13.7 - [facility] 16.5 g/dL [facility] LABORATORY Hematocrit 25.5 (L) 40.5 - [facility] 48.5 % [facility] LABORATORY MCV 87.3 82.9 - [facility] 93.1 [facility] LABORATORY MCH 29.1 27.5 - [facility] 32.1 pg [facility] LABORATORY MCHC 33.3 32.0 - [facility] 35.7 g/dL [facility] LABORATORY Platelets 288 145 - 357 [facility] x10(3)/[facility] LABORATORY RDWSD 52.2 (H) 36.0 - [facility] 45.0 [facility] LABORATORY RDWCV 16.4 (H) 11.4 - [facility] 13.8 % [facility] LABORATORY MPV 8.0 7.6 - 12.9 [facility] LABORATORY nRBC % Auto 0.0 % [facility] LABORATORY nRBC Abs Auto 0.000 0.000 - [facility] 0.000 [facility] x10(3)/[facility] LABORATORY Specimen Anatomical Collection Method Collection Time Receive d Time (Source) Location / / Volume Laterality Blood 03/01/2022 2:00 AM 2 2:03 EDT AM EDT Resulting Agency Comment Spec In Lab Veto Hidalgo MD HEMATOLOGY ORDERABLES Performing Organization Address City/State/[place] [address] Magnesium (03/01/2022 2:00 AM EDT) P athologist Signature Magnesium 0.77 0.69 - 1.07 [facility] mmol/L [facility] LABORATORY Specimen Anatomical Collection Method Collection Time Receive d Time (Source) Location / / Volume Laterality Blood 03/01/2022 2:00 AM 2 2:03 EDT AM EDT Resulting Agency Comment Spec In Lab Jayme Armstrong MD CHEMISTRY ORDERABLES Performing Organization Address City/State/ZIP Code Phon e Number [address] (ABNORMAL) Phosphorus (03/01/2022 2:00 AM EDT) P athologist Signature Phosphorus 4.8 (H) 2.5 - 4.5 [facility] mg/dL [facility] LABORATORY Specimen Anatomical Collection Method Collection Time Receive d Time (Source) Location / / Volume Laterality Blood 03/01/2022 2:00 AM 2 2:03 EDT AM EDT Resulting Agency Comment Spec In Lab Jayme Armstrong MD CHEMISTRY ORDERABLES Performing Organization Address City/[facility]/ZIP [place] [address] (ABNORMAL) Basic Metabolic Panel (non-fasting) (03/01/2022 2:00 AM EDT) P athologist Signature Glucose Lvl 106 65 - 199 [facility] mg/dL [facility] LABORATORY Comment: Diabetes: >=200 mg/dL plus symp toms BUN 38 (H) 10 - 20 mg/dL [facility] LABORATORY Creatinine 1.73 (H) 0.80 - 1.50 mg/dL [facility] LABORATORY Sodium 140 135 - 145 mmol/L [facility] LABORATORY Potassium 4.3 3.5 - 5.0 mmol/L [facility] LABORATORY Comment: Please note: ??Patients with WBC >100,00 0 may have falsely elevated Potassium levels. ??For accurate Potassium quantif ication in these patients send serum separator tube (gold top) for subsequent determinations. ??Contact the Clinical Chemistry Laboratory if there are any qu estions. Chloride 102 98 - 107 mmol/L [facility] LABORATORY CO2 24 22 - 31 mmol/L [facility] LABORATORY Anion Gap 14 5 - 15 mmol/L [facility] LABORATORY Calcium 9.2 8.5 - 10.5 mg/dL [facility] LABORATORY Estimated GFR 54 (L) >=60 mL/min/1.73 m?? [facility] LABORATORY Comment: This patient's estimated [...] Organization Address City/State/ZIP [place] [address] (ABNORMAL) Ferritin (03/01/2022 2:00 AM EDT) P athologist Signature Ferritin 693 (H) 30 - 400 [facility] ng/mL [facility] LABORATORY Comment: Pediatric reference ranges not verified [place] [facility] interpret with caution. Reference ranges for females [...] Organization Address City/State/ZIP Code Phon e Number [address] (ABNORMAL) Iron and TIBC (03/01/2022 2:00 AM EDT) Analysis Performed At Patho logist Time Signature Iron 21 (L) 45 - 160 [place] mcg/[facility] LABORATORY TIBC 185 (L) 250 - 450 [facility] LABORATORY Iron Saturation 11 (L) 20 - 50 % [facility] LABORATORY Specimen Anatomical Collection Method Collection Time Receive d Time (Source) Location / / Volume Laterality Blood 03/01/2022 2:00 AM 2 2:03 EDT AM EDT Resulting Agency Comment Spec In Lab Allison Kelly MD CHEMISTRY ORDERABLES Performing Organization Address City/State/[place] [address] (ABNORMAL) Basic Metabolic Panel (non-fasting) (02/28/2022 3:43 AM EDT) athologist Signature Glucose Lvl 110 65 - 199 [facility] mg/dL [facility] LABORATORY Comment: Diabetes: >=200 mg/dL plus symp toms BUN 44 (H) 10 - 20 mg/dL [facility] LABORATORY Creatinine 1.92 (H) 0.80 - 1.50 mg/dL [facility] LABORATORY Sodium 138 135 - 145 mmol/L [facility] LABORATORY Potassium 4.3 3.5 - 5.0 mmol/L [facility] LABORATORY Comment: Please note: ??Patients with WBC >100,00 0 may have falsely elevated Potassium levels. ??For accurate Potassium quantif ication in these patients send serum separator tube (gold top) for subsequent determinations. ??Contact the Clinical Chemistry Laboratory if there are any qu estions. Chloride 103 98 - 107 mmol/L [facility] LABORATORY CO2 24 22 - 31 mmol/L [facility] LABORATORY Anion Gap 11 5 - 15 mmol/L [facility] LABORATORY Calcium 9.1 8.5 - 10.5 mg/dL [facility] LABORATORY Estimated GFR 47 (L) >=60 mL/min/1.73 m?? [facility] LABORATORY Comment: This patient's estimated [...] Organization Address City/State/[place] [address] (ABNORMAL) Differential, Automated (02/27/2022 4:36 AM EDT) athologist Signature Neutrophils % 55.6 % [facility] LABORATORY Neutr Abs (ANC) 3.68 1.70 - [facility] 6.10 [facility] x10(3)[facility] LABORATORY Lymphocytes % 21.3 % [facility] LABORATORY Lymphocytes Abs 1.4 0.9 - 3.2 [facility] x10(3)[facility] LABORATORY Monocytes % 11.8 % [facility] LABORATORY Monocyte Abs 0.8 0.3 - 0.9 [facility] x10(3)[facility] LABORATORY Eosinophils % 5.9 % [facility] LABORATORY Eosinophils Abs 0.4 0.0 - 0.4 [facility] x10(3)/[facility] LABORATORY Basophils % 0.9 % [facility] LABORATORY Basophils Abs 0.1 0.0 - 0.1 [facility] x10(3)/[facility] LABORATORY Immature Gran % 4.50 % [facility] LABORATORY Comment: Immature granulocytes(IG's)percentage an d absolute count will include metamyelocytes, myelocytes, and promyelo cytes. Blood smears from CBCs yielding IG's will be scanned manually for concor dannoe. If this scan disagrees with the automated IG or if promyelocytes are not ed, a manual differential will be performed. Gemini Gran Abs 0.30 (H) 0.00 - 0.04 x10(3)/[facility] LABORATORY Specimen Anatomical Collection Method Collection Time Receive d Time (Source) Location / / Volume Laterality Blood 02/27/2022 4:36 AM 4:48 EDT AM EDT Resulting Agency Comment Spec In Lab Veto Hidalgo MD HEMATOLOGY ORDERABLES Performing Organization Address City/State/[place] [address] (ABNORMAL) Hemogram (02/27/2022 4:36 AM EDT) Analysis Performed At Patho logist Time Signature WBC 6.6 4.0 - 9.5 [facility] x10(3)/[facility] LABORATORY RBC 2.74 (L) 4.58 - [facility] 5.54 [facility] x10(6)/[facility] LABORATORY Hemoglobin 8.0 (L) 13.7 - [facility] 16.5 g/dL [facility] LABORATORY Hematocrit 24.7 (L) 40.5 - [facility] 48.5 % [facility] LABORATORY MCV 90.1 82.9 - [facility] 93.1 [facility] LABORATORY MCH 29.2 27.5 - [facility] MANDO 32.1 pg [facility] LABORATORY MCHC 32.4 32.0 - [facility] 35.7 g/dL [facility] LABORATORY Platelets 267 145 - 357 [facility] x10(3)/[facility] LABORATORY RDWSD 56.6 (H) 36.0 - [facility] Differential 45.0 [facility] LABORATORY RDWCV 17.2 (H) 11.4 - [facility] Differential 13.8 % [facility] LABORATORY MPV 8.1 7.6 - 12.9 [facility] LABORATORY nRBC % Auto 0.0 % [facility] LABORATORY nRBC Abs Auto 0.000 0.000 - [facility] MANDO 0.000 [facility] x10(3)/[facility] LABORATORY Specimen Anatomical Collection Method Collection Time Receive d Time (Source) Location / / Volume Laterality Blood 02/27/2022 4:36 AM 07/30/202 2 4:48 EDT AM EDT Resulting Agency Comment Spec In Lab Veto Hidalgo MD HEMATOLOGY ORDERABLES Performing Organization Address City/[facility]/ZIP Code Phon e Number [address] Magnesium (02/27/2022 4:36 AM EDT) athologist Signature Magnesium 0.74 0.69 - 1.07 [facility] mmol/L [facility] LABORATORY Specimen Anatomical Collection Method Collection Time Receive d Time (Source) Location / / Volume Laterality Blood 02/27/2022 4:36 AM 2 4:48 EDT AM EDT Resulting Agency Comment Spec In Lab Jayme Armstrong MD CHEMISTRY ORDERABLES Performing Organization Address City/[facility]/ZIP [place] [address] Phosphorus (02/27/2022 4:36 AM EDT) athologist Signature Phosphorus 4.5 2.5 - 4.5 [facility] mg/dL [facility] LABORATORY Specimen Anatomical Collection Method Collection Time Receive d Time (Source) Location / / Volume Laterality Blood 02/27/2022 4:36 AM 2 4:48 EDT AM EDT Resulting Agency Comment Spec In Lab Jayme Armstrong MD CHEMISTRY ORDERABLES Performing Organization Address City/[facility]/ZIP [place] [address] (ABNORMAL) Basic Metabolic Panel (non-fasting) (02/27/2022 4:36 AM EDT) athologist Signature Glucose Lvl 108 65 - 199 [facility] mg/dL [facility] LABORATORY Comment: Diabetes: >=200 mg/dL plus symp toms BUN 57 (H) 10 - 20 mg/dL [facility] LABORATORY Creatinine 2.29 (H) 0.80 - 1.50 mg/dL [facility] LABORATORY Sodium 142 135 - 145 mmol/L [facility] LABORATORY Potassium 4.6 3.5 - 5.0 mmol/L [facility] LABORATORY Comment: Please note: ??Patients with WBC >100,00 0 may have falsely elevated Potassium levels. ??For accurate Potassium quantif ication in these patients send serum separator tube (gold top) for subsequent determinations. ??Contact the Clinical Chemistry Laboratory if there are any qu estions. Chloride 105 98 - 107 mmol/L [facility] LABORATORY CO2 24 22 - 31 mmol/L [facility] LABORATORY Anion Gap 13 5 - 15 mmol/L [facility] LABORATORY Calcium 8.7 8.5 - 10.5 mg/dL [facility] LABORATORY Estimated GFR 38 (L) >=60 mL/min/1.73 m?? [facility] LABORATORY Comment: This patient's estimated [...] EDT Resulting Agency Comment Spec In Lab Jamye Armstrong MD CHEMISTRY ORDERABLES Performing Organization Address City/State/[place] [address] (ABNORMAL) Basic Metabolic Panel (non-fasting) (02/26/2022 5:30 AM EDT) P athologist Signature Glucose Lvl 101 65 - 199 [facility] mg/dL [facility] LABORATORY Comment: Diabetes: >=200 mg/dL plus symp toms BUN 60 (H) 10 - 20 mg/dL [facility] LABORATORY Creatinine 2.39 (H) 0.80 - 1.50 mg/dL [facility] LABORATORY Sodium 142 135 - 145 mmol/L [facility] LABORATORY Potassium 4.4 3.5 - 5.0 mmol/L [facility] LABORATORY Comment: Please note: ??Patients with WBC >100,00 0 may have falsely elevated Potassium levels. ??For accurate Potassium quantif ication in these patients send serum separator tube (gold top) for subsequent determinations. ??Contact the Clinical Chemistry Laboratory if there are any qu estions. Chloride 105 98 - 107 mmol/L [facility] LABORATORY CO2 23 22 - 31 mmol/L [facility] LABORATORY Anion Gap 14 5 - 15 mmol/L [facility] LABORATORY Calcium 8.7 8.5 - 10.5 mg/dL [facility] LABORATORY Estimated GFR 36 (L) >=60 mL/min/1.73 m?? [facility] LABORATORY Comment: This patient's estimated [...] Organization Address City/State/[place] [address] PTH (02/25/2022 5:30 AM EDT) athologist Signature PTH 65 15 - 65 [facility] pg/mL [facility] LABORATORY Specimen Anatomical Collection Method Collection Time Receive d Time (Source) Location / / Volume Laterality Blood Venous Draw / 02/25/2022 5:30 AM 02/26/20 22 Unknown EDT 12:09 PM EDT Resulting Agency Comment Spec In Lab Tex Robles MD CHEMISTRY ORDERABLES Performing Organization Address City/State/[place] [address] (ABNORMAL) Differential, Automated (02/25/2022 5:30 AM EDT) [facility] Method Time Signature Neutrophils % 67.3 % [facility] LABORATORY Neutr Abs (ANC) 6.38 (H) 1.70 - [facility] 6.10 [facility] x10(3)/[facility] LABORATORY Lymphocytes % 18.9 % [facility] LABORATORY Lymphocytes Abs 1.8 0.9 - 3.2 [facility] x10(3)/[facility] [facility]ORY Monocytes % 8.7 % [facility] LABORATORY Monocyte Abs 0.8 0.3 - 0.9 [facility] x10(3)/[facility] LABORATORY Eosinophils % 1.8 % [facility] LABORATORY Eosinophils Abs 0.2 0.0 - 0.4 [facility] x10(3)/[facility] LABORATORY Basophils % 0.5 % [facility] LABORATORY Basophils Abs 0.0 0.0 - 0.1 [facility] x10(3)/[facility] LABORATORY Immature Gran % 2.80 % [facility] LABORATORY Comment: Immature granulocytes(IG's)percentage an d absolute count will include metamyelocytes, myelocytes, and promyelo cytes. Blood smears from CBCs yielding IG's will be scanned manually for concor dance. If this scan disagrees with the automated IG or if promyelocytes are not ed, a manual differential will be performed. Gemini Gran Abs 0.27 (H) 0.00 - 0.04 x10(3)/[facility] LABORATORY Specimen Anatomical Collection Method Collection Time Receive d Time (Source) Location / / Volume Laterality Blood 02/25/2022 5:30 AM 2 6:31 EDT AM EDT Resulting Agency Comment Spec In Lab Nancy Chahal MD HEMATOLOGY ORDERABLES Performing Organization Address City/State/ZIP Code Phon e Number [place] [phone] [facility] LABORATORY Drive (ABNORMAL) Hemogram (02/25/2022 5:30 AM EDT) Analysis Performed At Patho logist Time Signature WBC 9.5 4.0 - 9.5 [facility] x10(3)/[facility] LABORATORY RBC 2.63 (L) 4.58 - [facility] [place] 5.54 [facility] x10(6)/[facility] LABORATORY Hemoglobin 7.5 (L) 13.7 - [facility] 16.5 g/dL [facility] LABORATORY Hematocrit 23.5 (L) 40.5 - [facility] 48.5 % [facility]ATORY MCV 89.4 82.9 [facility]1 [facility] LABORATORY MCH 28.5 27.5 - [facility] 32.1 pg [facility] LABORATORY MCHC 31.9 (L) 32.0 - [facility] 35.7 g/dL [facility] LABORATORY Platelets 299 145 - 357 [facility] x[facility](3[facility] LABORATORY RDWSD 55.2 (H) 36.0 - [facility] MANDO 45.0 [facility] LABORATORY RDWCV 17.1 (H) 11.4 - [facility] MANDO 13.8 % [facility] LABORATORY MPV 8.3 7.6 - 12.9 [facility] MANDO [facility] LABORATORY nRBC % Auto 0.0 % [facility] LABORATORY nRBC Abs Auto 0.000 0.000 - [facility] 0.000 [facility] x10(3)/[facility] LABORATORY Specimen Anatomical Collection Method Collection Time Receive d Time (Source) Location / / Volume Laterality Blood 02/25/2022 5:30 AM 2 6:31 EDT AM EDT Resulting Agency Comment Spec In Lab Nancy Chahal MD HEMATOLOGY ORDERABLES Performing Organization Address City/State/ZIP Code Phon e Number [place] [phone] [facility]OSPITAL LABORATORY Drive Magnesium (02/25/2022 5:30 AM EDT) athologist Signature Magnesium 0.81 0.69 - 1.07 [facility] mmol/L [facility] LABORATORY Specimen Anatomical Collection Method Collection Time Receive d Time (Source) Location / / Volume Laterality Blood 02/25/2022 5:30 AM 2 6:31 EDT AM EDT Resulting Agency Comment Spec In Lab Jayme Armstrong MD CHEMISTRY ORDERABLES Performing Organization Address City/[facility]/ZIP [place] [address] (ABNORMAL) Phosphorus (02/25/2022 5:30 AM EDT) athologist Signature Phosphorus 4.9 (H) 2.5 - 4.5 [facility] mg/dL [facility] LABORATORY Specimen Anatomical Collection Method Collection Time Receive d Time (Source) Location / / Volume Laterality Blood 02/25/2022 5:30 AM 2 6:31 EDT AM EDT Resulting Agency Comment Spec In Lab Jayme Armstrong MD CHEMISTRY ORDERABLES Performing Organization Address City/[facility] [place] [address] (ABNORMAL) Basic Metabolic Panel (non-fasting) (02/25/2022 5:30 AM EDT) athologist Signature Glucose Lvl 104 65 - 199 [facility] mg/dL [facility] LABORATORY Comment: Diabetes: >=200 mg/dL plus symp toms BUN 65 (H) 10 - 20 mg/dL [facility] LABORATORY Creatinine 2.94 (H) 0.80 - 1.50 mg/dL [facility] LABORATORY Sodium 139 135 - 145 mmol/L [facility] LABORATORY Potassium 4.2 3.5 - 5.0 mmol/L [facility] LABORATORY Comment: Please note: ??Patients with WBC >100,00 0 may have falsely elevated Potassium levels. ??For accurate Potassium quantif ication in these patients send serum separator tube (gold top) for subsequent determinations. ??Contact the Clinical Chemistry Laboratory if there are any qu estions. Chloride 102 98 - 107 mmol/L [facility] LABORATORY CO2 23 22 - 31 mmol/L [facility] LABORATORY Anion Gap 14 5 - 15 mmol/L [facility] LABORATORY Calcium 8.4 (L) 8.5 - 10.5 mg/dL [facility] LABORATORY Estimated GFR 28 (L) >=60 mL/min/1.73 m?? [facility] LABORATORY Comment: This patient's estimated [...] Organization Address City/State/ZIP Code Phon e Number [place] [phone] [facility]OSPITAL LAB[address]ATORY Drive (ABNORMAL) Basic Metabolic Panel (non-fasting) (02/24/2022 5:45 AM EDT) P athologist Signature Glucose Lvl 102 65 - 199 [facility] mg/dL [facility] LABORATORY Comment: Diabetes: >=200 mg/dL plus symp toms BUN 61 (H) 10 - 20 mg/dL [facility] LABORATORY Creatinine 2.96 (H) 0.80 - 1.50 mg/dL [facility] LABORATORY Comment: result rechecked-sf Sodium 137 135 - 145 mmol/L [facility] LABORATORY Potassium 4.5 3.5 - 5.0 mmol/L [facility] LABORATORY Comment: Please note: ??Patients with WBC >100,00 0 may have falsely elevated Potassium levels. ??For accurate Potassium quantif ication in these patients send serum separator tube (gold top) for subsequent determinations. ??Contact the Clinical Chemistry Laboratory if there are any qu estions. Chloride 102 98 - 107 mmol/L [facility] LABORATORY CO2 22 22 - 31 mmol/L [facility] LABORATORY Anion Gap 13 5 - 15 mmol/L [facility] LABORATORY Calcium 8.3 (L) 8.5 - 10.5 mg/dL [facility] LABORATORY Estimated GFR 28 (L) >=60 mL/min/1.73 m?? [facility] LABORATORY Comment: This patient's estimated [...] Organization Address City/State/[place] [address] SCAN DOC: LAB (02/24/2022 12:00 AM EDT) Narrative This result has an attachment that is no t available. Unknown MEDIA MGR SCAN EXT ORDR/RSLT (ABNORMAL) Differential, Automated (02/23/2022 5:00 AM EDT) athologist Signature Neutrophils % 69.0 % [facility] LABORATORY Neutr Abs (ANC) 5.59 1.70 - [facility] 6.10 [facility] x10(3)/[facility] LABORATORY Lymphocytes % 12.8 % [facility] LABORATORY Lymphocytes Abs 1.0 0.9 - 3.2 [facility] x10(3)/[facility] LABORATORY Monocytes % 10.0 % [facility] LABORATORY Monocyte Abs 0.8 0.3 - 0.9 [facility] x10(3)/[facility] LABORATORY Eosinophils % 2.6 % [facility] LABORATORY Eosinophils Abs 0.2 0.0 - 0.4 [facility] x10(3)/[facility] LABORATORY Basophils % 0.7 % [facility] LABORATORY Basophils Abs 0.1 0.0 - 0.1 [facility] x10(3)/[facility] LABORATORY Immature Gran % 4.90 % [facility] LABORATORY Comment: Immature granulocytes(IG's)percentage an d absolute count will include metamyelocytes, myelocytes, and promyelo cytes. Blood smears from CBCs yielding IG's will be scanned manually for concor dance. If this scan disagrees with the automated IG or if promyelocytes are not ed, a manual differential will be performed. Gemini Gran Abs 0.40 (H) 0.00 - 0.04 x10(3)/[facility] LABORATORY Specimen Anatomical Collection Method Collection Time Receive d Time (Source) Location / / Volume Laterality Blood 02/23/2022 5:00 AM 5:31 EDT AM EDT Resulting Agency Comment Spec In Lab Kaitlyn Rock MD HEMATOLOGY ORDERABLES Performing Organization Address City/State/[place] [address] (ABNORMAL) Hemogram (02/23/2022 5:00 AM EDT) Analysis Performed At Patho logist Time Signature WBC 8.1 4.0 - 9.5 [facility] x10(3)/[facility] LABORATORY RBC 2.50 (L) 4.58 - [facility] 5.54 [facility] x10(6)/[facility] LABORATORY Hemoglobin 7.0 (L) 13.7 - [facility] 16.5 g/dL [facility] LABORATORY Hematocrit 22.4 (L) 40.5 - [facility] [place] 48.5 % [facility] LABORATORY MCV 89.6 82.9 - [facility]1 [facility] LABORATORY MCH 28.0 27.5 - [facility] [place] 32.1 pg [facility] LABORATORY MCHC 31.3 (L) 32.0 - [facility] 35.7 g/dL [facility] LABORATORY Platelets 300 145 - 357 [facility] x10(3)/[facility] LABORATORY RDWSD 57.0 (H) 36.0 - [facility] 45.0 [facility] LABORATORY RDWCV 17.5 (H) 11.4 - [facility] 13.8 % [facility] LABORATORY MPV 8.4 7.6 - 12.9 [facility] LABORATORY nRBC % Auto 0.0 % [facility] LABORATORY nRBC Abs Auto 0.000 0.000 - [facility] 0.000 [facility] x10(3)/[facility] LABORATORY Specimen Anatomical Collection Method Collection Time Receive d Time (Source) Location / / Volume Laterality Blood 02/23/2022 5:00 AM 5:31 EDT AM EDT Resulting Agency Comment Spec In Lab Kaitlyn Rock MD HEMATOLOGY ORDERABLES Performing Organization Address City/State/[place] [address] (ABNORMAL) Basic Metabolic Panel (non-fasting) (02/23/2022 5:00 AM EDT) P athologist Signature Glucose Lvl 113 65 - 199 [facility] mg/dL [facility] LABORATORY Comment: Diabetes: >=200 mg/dL plus symp toms BUN 59 (H) 10 - 20 mg/dL [facility] LABORATORY Creatinine 3.90 (H) 0.80 - 1.50 mg/dL [facility] LABORATORY Sodium 137 135 - 145 mmol/L [facility] LABORATORY Potassium 4.6 3.5 - 5.0 mmol/L [facility] LABORATORY Comment: Please note: ??Patients with WBC >100,00 0 may have falsely elevated Potassium levels. ??For accurate Potassium quantif ication in these patients send serum separator tube (gold top) for subsequent determinations. ??Contact the Clinical Chemistry Laboratory if there are any qu estions. Chloride 102 98 - 107 mmol/L [facility] LABORATORY CO2 24 22 - 31 mmol/L [facility] LABORATORY Anion Gap 11 5 - 15 mmol/L [facility] LABORATORY Calcium 8.3 (L) 8.5 - 10.5 mg/dL [facility] LABORATORY Estimated GFR 20 (L) >=60 mL/min/1.73 m?? [facility] LABORATORY Comment: This patient's estimated [...] Novak MD CHEMISTRY ORDERABLES Performing Organization Address City/State/[facility] [place] [address] (ABNORMAL) Phosphorus (02/23/2022 5:00 AM EDT) P athologist Signature Phosphorus 6.2 (H) 2.5 - 4.5 [facility] mg/dL [facility] LABORATORY Specimen Anatomical Collection Method Collection Time Receive d Time (Source) Location / / Volume Laterality Blood 02/23/2022 5:00 AM 2 5:31 EDT AM EDT Resulting Agency Comment Spec In Lab Gela Novak MD CHEMISTRY ORDERABLES Performing Organization Address City/State/[place] [address] [facility] [address] Magnesium (02/23/2022 5:00 AM EDT) P athologist Signature Magnesium 0.93 0.69 - 1.07 [facility] mmol/L [facility] LABORATORY Specimen Anatomical Collection Method Collection Time Receive d Time (Source) Location / / Volume Laterality Blood 02/23/2022 5:00 AM 5:31 EDT AM EDT Resulting Agency Comment Spec In Lab Gela Novak MD CHEMISTRY ORDERABLES Performing Organization Address City/State/ZIP Code Phon e Number [address] (ABNORMAL) Differential, Automated (02/22/2022 1:08 AM EDT) Patholo gist Method Time Signature Neutrophils % 64.0 % [facility] LABORATORY Neutr Abs (ANC) 5.73 1.70 - [facility] 6.10 [facility] x10(3)/[facility] LABORATORY Lymphocytes % 15.0 % [facility] LABORATORY Lymphocytes Abs 1.3 0.9 - 3.2 [facility] x10(3)/[facility] LABORATORY Monocytes % 10.9 % [facility] LABORATORY Monocyte Abs 1.0 (H) 0.3 - 0.9 [facility] x10(3)/[facility] LABORATORY Eosinophils % 3.0 % [facility] LABORATORY Eosinophils Abs 0.3 0.0 - 0.4 [facility] x10(3)/[facility] LABORATORY Basophils % 0.6 % [facility] LABORATORY Basophils Abs 0.0 0.0 - 0.1 [facility] x10(3)/[facility] LABORATORY Immature Gran % 6.50 % [facility] LABORATORY Comment: Immature granulocytes(IG's)percentage an d absolute count will include metamyelocytes, myelocytes, and promyelo cytes. Blood smears from CBCs yielding IG's will be scanned manually for concor dance. If this scan disagrees with the automated IG or if promyelocytes are not ed, a manual differential will be performed. Gemini Gran Abs 0.58 (H) 0.00 - 0.04 x10(3)/[facility] LABORATORY Specimen Anatomical Collection Method Collection Time Receive d Time (Source) Location / / Volume Laterality Blood 02/22/2022 1:08 AM 2 1:25 EDT AM EDT Resulting Agency Comment Spec In Lab Kaitlyn Rock MD HEMATOLOGY ORDERABLES Performing Organization Address City/State/[place] [address] (ABNORMAL) Hemogram (02/22/2022 1:08 AM EDT) Analysis Performed At Patho logist Time Signature WBC 8.9 4.0 - 9.5 [facility] x10(3)/[facility] LABORATORY RBC 2.56 (L) 4.58 - [facility] 5.54 [facility] x10(6)/[facility] LABORATORY Hemoglobin 7.3 (L) 13.7 - [facility] 16.5 g/dL [facility] LABORATORY Hematocrit 22.7 (L) 40.5 - [facility] 48.5 % [facility] LABORATORY MCV 88.7 82.9 - [facility] 93.1 [facility] LABORATORY MCH 28.5 27.5 - [facility] 32.1 pg [facility] LABORATORY MCHC 32.2 32.0 - [facility] 35.7 g/dL [facility] LABORATORY Platelets 317 145 - 357 [facility] x10(3)/[facility] LABORATORY RDWSD 58.2 (H) 36.0 - [facility] MANDO 45.0 [facility] LABORATORY RDWCV 17.9 (H) 11.4 - [facility] MANDO 13.8 % [facility] LABORATORY MPV 8.5 7.6 - 12.9 [facility] nRBC % Auto 0.0 % [facility] LABORATORY nRBC Abs Auto 0.000 0.000 - [facility] MANDO 0.000 [facility] x10(3)/[facility] LABORATORY Specimen Anatomical Collection Method Collection Time Receive d Time (Source) Location / / Volume Laterality Blood 02/22/2022 1:08 AM 2 1:25 EDT AM EDT Resulting Agency Comment Spec In Lab Kaitlyn Rock MD HEMATOLOGY ORDERABLES Performing Organization Address City/State/[place] [address] (ABNORMAL) Basic Metabolic Panel (non-fasting) (02/22/2022 1:08 AM EDT) P athologist Signature Glucose Lvl 95 65 - 199 [facility] mg/dL [facility] LABORATORY Comment: Diabetes: >=200 mg/dL plus symp toms BUN 55 (H) 10 - 20 mg/dL [facility] LABORATORY Creatinine 3.91 (H) 0.80 - 1.50 mg/dL [facility] LABORATORY Sodium 137 135 - 145 mmol/L [facility] LABORATORY Potassium 5.1 (H) 3.5 - 5.0 mmol/L [facility] LABORATORY Comment: Please note: ??Patients with WBC >100,00 0 may have falsely elevated Potassium levels. ??For accurate Potassium quantif ication in these patients send serum separator tube (gold top) for subsequent determinations. ??Contact the Clinical Chemistry Laboratory if there are any qu estions. Chloride 101 98 - 107 mmol/L [facility] LABORATORY CO2 23 22 - 31 mmol/L [facility] LABORATORY Anion Gap 13 5 - 15 mmol/L [facility] LABORATORY Calcium 8.2 (L) 8.5 - 10.5 mg/dL [facility] LABORATORY Estimated GFR 20 (L) >=60 mL/min/1.73 m?? [facility] LABORATORY Comment: This patient's estimated [...] MD CHEMISTRY ORDERABLES Performing Organization Address City/[facility]/ZIP Code Phon e Number [address] (ABNORMAL) Phosphorus (02/22/2022 1:08 AM EDT) P athologist Signature Phosphorus 5.9 (H) 2.5 - 4.5 [facility] mg/dL [facility] LABORATORY Specimen Anatomical Collection Method Collection Time Receive d Time (Source) Location / / Volume Laterality Blood 02/22/2022 1:08 AM 2 1:25 EDT AM EDT Resulting Agency Comment Spec In Lab Gela Novak MD CHEMISTRY ORDERABLES Performing Organization Address City/[facility]/ZIP [place] [address] Magnesium (02/22/2022 1:08 AM EDT) P athologist Signature Magnesium 0.90 0.69 - 1.07 [facility] mmol/L [facility] LABORATORY Specimen Anatomical Collection Method Collection Time Receive d Time (Source) Location / / Volume Laterality Blood 02/22/2022 1:08 AM 2 1:25 EDT AM EDT Resulting Agency Comment Spec In Lab Gela Novak MD CHEMISTRY ORDERABLES Performing Organization Address City/[facility]/ZIP [place] [address] Transfuse RBC (02/21/2022 4:53 PM EDT) Gela Novak MD NURSING TREATMENT ORDERABLES - BLOOD ADMIN Transfuse RBC (02/21/2022 4:53 PM EDT) Gela Novak MD NURSING TREATMENT ORDERABLES - BLOOD ADMIN Type and Screen Validity (02/21/2022 12:40 PM EDT) Patholo gist Method Time Signature T&S only valid [facility] Comment: This Type and Screen result is only valid at the [facility] Specimen Anatomical Collection Method Collection Time Receive d Time (Source) Location / / Volume Laterality Blood 02/21/2022 12:40 02/21/2022 1:12 PM EDT PM EDT Resulting Agency Comment Spec In Lab Melissa Gonzales MD BLOOD BANK ORDERABLES Performing Organization Address City/State/ZIP Code Phon e Number [address] ABORH Recheck Status (02/21/2022 12:40 PM EDT) [facility] Method Time Signature ABORH Type Completed [facility] LABORATORY Specimen Anatomical Collection Method Collection Time Receive d Time (Source) Location / / Volume Laterality Blood 02/21/2022 12:40 02/21/2022 1:12 PM EDT PM EDT Resulting Agency Comment Spec In Lab Melissa Gonzales MD BLOOD BANK ORDERABLES Performing Organization Address City/State/ZIP [place] [address] Antibody screen (02/21/2022 12:40 PM EDT) [facility] Method [place] Signature Ab Screen Negative [facility] LABORATORY Expires at 02/24/2022 [facility] [id number] on: [facility] LABORATORY Specimen Anatomical Collection Method Collection Time Receive d Time (Source) Location / / Volume Laterality Blood 02/21/2022 12:40 02/21/2022 1:12 PM EDT PM EDT Resulting Agency Comment Spec In Lab Melissa Gonzales MD BLOOD BANK ORDERABLES Performing Organization Address City/[facility]/ZIP [place] [address] ABO/Rh Typing (02/21/2022 12:40 PM EDT) P athologist Signature ABORh Type A Pos [facility] LABORATORY Specimen Anatomical Collection Method Collection Time Receive d Time (Source) Location / / Volume Laterality Blood 02/21/2022 12:40 02/21/2022 1:12 PM EDT PM EDT Resulting Agency Comment Spec In Lab Melissa Gonzales MD BLOOD BANK ORDERABLES Performing Organization Address City/[facility]/ZIP Code Phon e Number [address] Prepare RBC (02/21/2022 12:20 PM EDT) athologist Signature Dispensed? Yes [facility] LABORATORY Specimen Anatomical Collection Method Collection Time Receive d Time (Source) Location / / Volume Laterality Blood 02/21/2022 12:20 02/21/2022 PM EDT 12:19 PM EDT Gela Novak MD BLOOD BANK ORDERABLES Performing Organization Address City/[facility]/ZIP [place] [address] (ABNORMAL) Albumin Level (02/21/2022 3:38 AM EDT) athologist Signature Albumin 2.3 (L) 3.2 - 5.2 [facility] g/dL [facility] LABORATORY Specimen Anatomical Collection Method Collection Time Receive d Time (Source) Location / / Volume Laterality Blood Venous Draw / 02/21/2022 3:38 AM 02/22/20 22 3:47 Unknown EDT AM EDT Resulting Agency Comment Spec In Lab Bambi Pressley MD CHEMISTRY ORDERABLES Performing Organization Address City/[facility]/ZIP [place] [address] (ABNORMAL) Differential, Automated (02/21/2022 3:38 AM EDT) P athologist Signature Neutrophils % 67.8 % [facility] LABORATORY Neutr Abs (ANC) 6.03 1.70 - [facility] 6.10 [facility] x10(3)/[facility] LABORATORY Lymphocytes % 13.5 % [facility] LABORATORY Lymphocytes Abs 1.2 0.9 - 3.2 [facility] x10(3)/[facility] LABORATORY Monocytes % 9.4 % [facility] LABORATORY Monocyte Abs 0.8 0.3 - 0.9 [facility] x10(3)/[facility] LABORATORY Eosinophils % 3.1 % [facility] LABORATORY Eosinophils Abs 0.3 0.0 - 0.4 [facility] x10(3)/[facility] LABORATORY Basophils % 0.6 % [facility] LABORATORY Basophils Abs 0.0 0.0 - 0.1 [facility] x10(3)/[facility] LABORATORY Immature Gran % 5.60 % [facility] LABORATORY Comment: Immature granulocytes(IG's)percentage an d absolute count will include metamyelocytes, myelocytes, and promyelo cytes. Blood smears from CBCs yielding IG's will be scanned manually for concor dance. If this scan disagrees with the automated IG or if promyelocytes are not ed, a manual differential will be performed. Gemini Gran Abs 0.50 (H) 0.00 - 0.04 x10(3)/[facility] LABORATORY Specimen Anatomical Collection Method Collection Time Receive d Time (Source) Location / / Volume Laterality Blood 02/21/2022 3:38 AM 2 3:46 EDT AM EDT Resulting Agency Comment Spec In Lab Kaitlyn Rock MD HEMATOLOGY ORDERABLES Performing Organization Address City/State/[place] [address] (ABNORMAL) Hemogram (02/21/2022 3:38 AM EDT) Analysis Performed At Patho logist Time Signature WBC 8.9 4.0 - 9.5 [facility] x10(3)/[facility] LABORATORY RBC 2.37 (L) 4.58 - [facility] 5.54 [facility] x10(6)/[facility] LABORATORY Hemoglobin 6.9 (L) 13.7 - [facility] g/dL [facility] LABORATORY Hematocrit 21.4 (L) 40.5 - [facility] 48.5 % [facility] LABORATORY MCV 90.3 82.9 - [facility] 93.1 fL [facility] LABORATORY MCH 29.1 27.5 - [facility] 32.1 pg [facility] LABORATORY MCHC 32.2 32.0 - [facility] 35.7 g/dL [facility] LABORATORY Platelets 273 145 - 357 [facility] x10(3)/[facility] LABORATORY RDWSD 50.5 (H) 36.0 - [facility] 45.0 [facility] LABORATORY RDWCV 15.7 (H) 11.4 - [facility] 13.8 % [facility] LABORATORY MPV 8.5 7.6 - 12.9 [facility] LABORATORY nRBC % Auto 0.0 % [facility] LABORATORY nRBC Abs Auto 0.000 0.000 - [facility] 0.000 [facility] x10(3)/[facility] LABORATORY Specimen Anatomical Collection Method Collection Time Receive d Time (Source) Location / / Volume Laterality Blood 02/21/2022 3:38 AM 3:46 EDT AM EDT Resulting Agency Comment Spec In Lab Kaitlyn Rock MD HEMATOLOGY ORDERABLES Performing Organization Address City/State/[place] [address] (ABNORMAL) Basic Metabolic Panel (non-fasting) (02/21/2022 3:38 AM EDT) P athologist Signature Glucose Lvl 96 65 - 199 [facility] mg/dL [facility] LABORATORY Comment: Diabetes: >=200 mg/dL plus symp toms BUN 46 (H) 10 - 20 mg/dL [facility] LABORATORY Creatinine 3.68 (H) 0.80 - 1.50 mg/dL [facility] LABORATORY Sodium 136 135 - 145 mmol/L [facility] LABORATORY Potassium 4.9 3.5 - 5.0 mmol/L [facility] LABORATORY Comment: Please note: ??Patients with WBC >100,00 0 may have falsely elevated Potassium levels. ??For accurate Potassium quantif ication in these patients send serum separator tube (gold top) for subsequent determinations. ??Contact the Clinical Chemistry Laboratory if there are any qu estions. Chloride 101 98 - 107 mmol/L [facility] LABORATORY CO2 26 22 - 31 mmol/L [facility] LABORATORY Anion Gap 9 5 - 15 mmol/L [facility] LABORATORY Calcium 8.1 (L) 8.5 - 10.5 mg/dL [facility] LABORATORY Estimated GFR 22 (L) >=60 mL/min/1.73 m?? [facility] LABORATORY Comment: This patient's estimated [...] Organization Address City/State/ZIP Code Phon e Number [address] (ABNORMAL) Phosphorus (02/21/2022 3:38 AM EDT) P athologist Signature Phosphorus 5.1 (H) 2.5 - 4.5 [facility] mg/dL [facility] LABORATORY Specimen Anatomical Collection Method Collection Time Receive d Time (Source) Location / / Volume Laterality Blood 02/21/2022 3:38 AM 2 3:46 EDT AM EDT Resulting Agency Comment Spec In Lab Gela Novak MD CHEMISTRY ORDERABLES Performing Organization Address City/State/ZIP Code Phon e Number [address] Magnesium (02/21/2022 3:38 AM EDT) P athologist Signature Magnesium 0.92 0.69 - 1.07 [facility] mmol/L [facility] LABORATORY Specimen Anatomical Collection Method Collection Time Receive d Time (Source) Location / / Volume Laterality Blood 02/21/2022 3:38 AM 2 3:46 EDT AM EDT Resulting Agency Comment Spec In Lab Gela Novak MD CHEMISTRY ORDERABLES Performing Organization Address City/State/[place] [address] (ABNORMAL) Differential, Automated (02/20/2022 4:45 AM EDT) [facility] Method Time Signature Neutrophils % 67.8 % [facility] LABORATORY Neutr Abs (ANC) 6.58 (H) 1.70 - [facility] 6.10 [facility] x10(3)/[facility] LABORATORY Lymphocytes % 12.7 % [facility] LABORATORY Lymphocytes Abs 1.2 0.9 - 3.2 [facility] x10(3)/[facility] LABORATORY Monocytes % 9.2 % [facility] LABORATORY Monocyte Abs 0.9 0.3 - 0.9 [facility] x10(3)/[facility] LABORATORY Eosinophils % 3.0 % [facility] LABORATORY Eosinophils Abs 0.3 0.0 - 0.4 [facility] x10(3)/[facility] LABORATORY Basophils % 0.4 % [facility] LABORATORY Basophils Abs 0.0 0.0 - 0.1 [facility] x10(3)/[facility] LABORATORY Immature Gran % 6.90 % [facility] LABORATORY Comment: Immature granulocytes(IG's)percentage an d absolute count will include metamyelocytes, myelocytes, and promyelo cytes. Blood smears from CBCs yielding IG's will be scanned manually for concor dance. If this scan disagrees with the automated IG or if promyelocytes are not ed, a manual differential will be performed. Gemini Gran Abs 0.67 (H) 0.00 - 0.04 x10(3)/[facility] LABORATORY Specimen Anatomical Collection Method Collection Time Receive d Time (Source) Location / / Volume Laterality Blood 02/20/2022 4:45 AM 2 5:02 EDT AM EDT Resulting Agency Comment Spec In Lab Kaitlyn Rock MD HEMATOLOGY ORDERABLES Performing Organization Address City/State/[place] [address] (ABNORMAL) Hemogram (02/20/2022 4:45 AM EDT) Analysis Performed At Patho logist Time Signature WBC 9.7 (H) 4.0 - 9.5 [facility] x[facility](3[facility] LABORATORY RBC 2.48 (L) 4.58 - [facility] 5.54 [facility] x10(6)/[facility] LABORATORY Hemoglobin 7.2 (L) 13.7 [facility] g/dL [facility] LABORATORY Hematocrit 22.2 (L) 40.5 [facility] 48.5 % [facility]ATORY MCV 89.5 82.9 [facility]1 [facility] LABORATORY MCH 29.0 27.5 - [facility] 32.1 pg [facility]ORATORY MCHC 32.4 32.0 - [facility] 35.7 g/dL [facility] LABORATORY Platelets 312 145 - 357 [facility] x10(3)/[facility] LABORATORY RDWSD 49.6 (H) 36.0 [facility]0 [facility] LABORATORY RDWCV 15.4 (H) 11.4 - [facility] 13.8 % [facility] LABORATORY MPV 8.4 7.6 - 12.9 [facility] LABORATORY nRBC % Auto 0.0 % [facility] LABORATORY nRBC Abs Auto 0.000 0.000 - [facility] 0.000 [facility] x10(3)/[facility] LABORATORY Specimen Anatomical Collection Method Collection Time Receive d Time (Source) Location / / Volume Laterality Blood 02/20/2022 4:45 AM 5:02 EDT AM EDT Resulting Agency Comment Spec In Lab Kaitlyn Rock MD HEMATOLOGY ORDERABLES Performing Organization Address City/State/[place] [address] (ABNORMAL) Basic Metabolic Panel (non-fasting) (02/20/2022 4:45 AM EDT) P athologist Signature Glucose Lvl 98 65 - 199 [facility] mg/dL [facility] LABORATORY Comment: Diabetes: >=200 mg/dL plus symp toms BUN 35 (H) 10 - 20 mg/dL [facility] LABORATORY Creatinine 3.27 (H) 0.80 - 1.50 mg/dL [facility] LABORATORY Comment: result rechecked-trb Sodium 136 135 - 145 mmol/L [facility] LABORATORY Potassium 4.7 3.5 - 5.0 mmol/L [facility] LABORATORY Comment: Please note: ??Patients with WBC >100,00 0 may have falsely elevated Potassium levels. ??For accurate Potassium quantif ication in these patients send serum separator tube (gold top) for subsequent determinations. ??Contact the Clinical Chemistry Laboratory if there are any qu estions. Chloride 99 98 - 107 mmol/L [facility] LABORATORY CO2 27 22 - 31 mmol/L [facility] LABORATORY Anion Gap 10 5 - 15 mmol/L [facility] LABORATORY Calcium 7.8 (L) 8.5 - 10.5 mg/dL [facility] LABORATORY Estimated GFR 25 (L) >=60 mL/min/1.73 m?? [facility] LABORATORY Comment: This patient's estimated [...] Organization Address City/State/ZIP [place] [address] (ABNORMAL) Phosphorus (02/20/2022 4:45 AM EDT) P athologist Signature Phosphorus 4.6 (H) 2.5 - 4.5 [facility] mg/dL [facility] LABORATORY Specimen Anatomical Collection Method Collection Time Receive d Time (Source) Location / / Volume Laterality Blood 02/20/2022 4:45 AM 2 5:02 EDT AM EDT Resulting Agency Comment Spec In Lab Gela Novak MD CHEMISTRY ORDERABLES Performing Organization Address City/State/ZIP Code Phon e Number [address] Magnesium (02/20/2022 4:45 AM EDT) P athologist Signature Magnesium 0.83 0.69 - 1.07 [facility] mmol/L [facility] LABORATORY Specimen Anatomical Collection Method Collection Time Receive d Time (Source) Location / / Volume Laterality Blood 02/20/2022 4:45 AM 2 5:02 EDT AM EDT Resulting Agency Comment Spec In Lab Gela Novak MD CHEMISTRY ORDERABLES Performing Organization Address City/State/Z[place] [address] Duplex for DVT, Arm, Unilat (02/19/2022 3:45 PM EDT) Component Value Ref Test Analysis Performed At Patholo gist Range Method Time Signature VB Text Department: Vascular Surgery Lab VASCUBASE Report Patient: [id number] (ALIX HOLLAND) CPT: 16390 Referring Physician: GELA NOVAK ?? Phone: Indications: [...] VASCUBASE Anaerobic Culture (02/19/2022 9:45 AM EDT) [facility] [email or web address] Method Time Signature Anaerobic No anaerobic [facility] Culture organisms [facility] LABORATORY Specimen Anatomical Collection Method Collection Time Receive d Time (Source) Location / / Volume Laterality Deep Wound STRUCTURE OF LEFT 02/19/2022 9:45 AM 01/30 THIGH / Unknown EDT 10:24 AM EDT Comment: Left leg wound culture Resulting Agency Comment Spec In Lab Floridalma Sandoval MD MICROBIOLOGY - GENERAL ORDER JT Performing Organization Address City/[facility]/ZIP [place] [address] (ABNORMAL) Abscess/Wound Aspirate Culture (02/19/2022 9:45 AM EDT) Component Value Ref Test Analysis Performed At [facility] [email or web address] Range Method Time Signature Abscess/Wound Rare Serratia marcescens M JON Aspirate Rare Pseudomonas aeruginosa [facility] Culture (A) [facility] LABORATORY Gram Stain Moderate Neutrophils J[facility] No microorganisms seen. [facility] OCK (A) [facility] LABORATORY Organism Serratia [facility] marcescens (A) [facility] LABORATORY Organism Pseudomonas [facility] aeruginosa (A) [facility] LABORATORY Specimen Anatomical Collection Method Collection Time [...] Organization Address City/State/[place] [address] (ABNORMAL) Vitamin D, 25-Hydroxy (02/19/2022 12:27 AM EDT) [facility] gist Method Time Signature 25-OH Vit D 12 (L) 21 - 100 [facility] Total ng/mL [facility] LABORATORY 25-OH Vit D Deficient [facility] LABORATORY Specimen Anatomical Collection Method Collection Time Receive d Time (Source) Location / / Volume Laterality Blood Venous Draw / 02/19/2022 12:27 02/19/2022 Unknown AM EDT 12:44 AM EDT Resulting Agency Comment Spec In Lab Vidhya Peñaloza MD CHEMISTRY ORDERABLES Performing Organization Address City/[facility]/ZIP Code Phon e Number [place] [id number] Drive (ABNORMAL) Ferritin (02/19/2022 12:27 AM EDT) P athologist Signature Ferritin 855 (H) 30 - 400 [facility] ng/mL [facility] LABORATORY Comment: Pediatric reference ranges not verified at [facility], interpret with caution. Reference ranges for females [...] MD CHEMISTRY ORDERABLES Performing Organization Address City/[facility]/ZIP [place] [address] (ABNORMAL) Differential, Automated (02/19/2022 12:27 AM EDT) Patholo gist Method Time Signature Neutrophils % 66.5 % [facility] LABORATORY Neutr Abs (ANC) 8.58 (H) 1.70 - [facility] 6.10 [facility] x10(3)/[facility] L LABORATORY Lymphocytes % 11.4 % [facility] LABORATORY Lymphocytes Abs 1.5 0.9 - 3.2 [facility] x10(3)/[facility] LABORATORY Monocytes % 7.6 % [facility] LABORATORY Monocyte Abs 1.0 (H) 0.3 - 0.9 [facility] x10(3)/[facility] LABORATORY Eosinophils % 4.0 % [facility] LABORATORY Eosinophils Abs 0.5 (H) 0.0 - 0.4 [facility] x10(3)/[facility] LABORATORY Basophils % 0.5 % [facility] LABORATORY Basophils Abs 0.1 0.0 - 0.1 [facility] x10(3)/[facility] LABORATORY Immature Gran % 10.00 % [facility] LABORATORY Comment: Immature granulocytes(IG's)percentage an d absolute count will include metamyelocytes, myelocytes, and promyelo cytes. Blood smears from CBCs yielding IG's will be scanned manually for concor dance. If this scan disagrees with the automated IG or if promyelocytes are not ed, a manual differential will be performed. Gemini Gran Abs 1.29 (H) 0.00 - 0.04 x10(3)/[facility] LABORATORY Specimen Anatomical Collection Method Collection Time Receive d Time (Source) Location / / Volume Laterality Blood 02/19/2022 12:27 02/19/2022 AM EDT 12:33 AM EDT Resulting Agency Comment Spec In Lab Collette Dye MD HEMATOLOGY ORDERABLES Performing Organization Address City/State/ZIP [place] [address] (ABNORMAL) Hemogram (02/19/2022 12:27 AM EDT) Analysis Performed At Patho logist Time Signature WBC 12.9 (H) 4.0 - 9.5 [facility] x10(3)/[facility] LABORATORY RBC 2.44 (L) 4.58 - [facility] 5.54 [facility] x10(6)/[facility] LABORATORY Hemoglobin 7.1 (L) 13.7 - [facility] 16.[facility] g/dL [facility] LABORATORY Hematocrit 21.9 (L) 40.5 - [facility] 48.5 % [facility] LABORATORY MCV 89.8 82.9 - [facility] 93.1 [facility] LABORATORY MCH 29.1 27.5 - [facility] 32.1 pg [facility] LABORATORY MCHC 32.4 32.0 - [facility] 35.7 g/dL [facility] LABORATORY Platelets 320 145 - 357 [facility] x10(3)/[facility] LABORATORY RDWSD 51.8 (H) 36.0 - [facility] RDWCV 15.7 (H) 11.4 - [facility] 13.8 % [facility] LABORATORY MPV 8.7 7.6 - 12.9 [facility] LABORATORY nRBC % Auto 0.0 % [facility] LABORATORY nRBC Abs Auto 0.000 0.000 - [facility] 0.000 [facility] x10(3)/[facility] LABORATORY Specimen Anatomical Collection Method Collection Time Receive d Time (Source) Location / / Volume Laterality Blood 02/19/2022 12:27 02/19/2022 AM EDT 12:33 AM EDT Resulting Agency Comment Spec In Lab Collette Dye MD HEMATOLOGY ORDERABLES Performing Organization Address City/State/[place] [address] (ABNORMAL) Basic Metabolic Panel (non-fasting) (02/19/2022 12:27 AM EDT) athologist Signature Glucose Lvl 100 65 - 199 [facility] mg/dL [facility] LABORATORY Comment: Diabetes: >=200 mg/dL plus symp toms BUN 49 (H) 10 - 20 mg/dL [facility] LABORATORY Creatinine 4.47 (H) 0.80 - 1.50 mg/dL [facility] LABORATORY Sodium 133 (L) 135 - 145 mmol/L [facility] LABORATORY Potassium 4.6 3.5 - 5.0 mmol/L [facility] LABORATORY Comment: Please note: ??Patients with WBC >100,00 0 may have falsely elevated Potassium levels. ??For accurate Potassium quantif ication in these patients send serum separator tube (gold top) for subsequent determinations. ??Contact the Clinical Chemistry Laboratory if there are any qu estions. Chloride 97 (L) 98 - 107 mmol/L [facility] LABORATORY CO2 24 22 - 31 mmol/L [facility] LABORATORY Anion Gap 12 5 - 15 mmol/L [facility] LABORATORY Calcium 7.8 (L) 8.5 - 10.5 mg/dL [facility] LABORATORY Estimated GFR 17 (L) >=60 mL/min/1.73 m?? [facility] LABORATORY Comment: This patient's estimated [...] MD CHEMISTRY ORDERABLES Performing Organization Address City/[facility]/ZIP Code Phon e Number [address] (ABNORMAL) Phosphorus (02/19/2022 12:27 AM EDT) P athologist Signature Phosphorus 5.9 (H) 2.5 - 4.5 [facility]dL [facility] LABORATORY Specimen Anatomical Collection Method Collection Time Receive d Time (Source) Location / / Volume Laterality Blood 02/19/2022 12:27 02/19/2022 AM EDT 12:33 AM EDT Resulting Agency Comment Spec In Lab Gela Novak MD CHEMISTRY ORDERABLES Performing Organization Address City/State/ZIP Code Phon e Number [address] Magnesium (02/19/2022 12:27 AM EDT) P athologist Signature Magnesium 0.84 0.69 - 1.07 [facility]/L [facility] LABORATORY Specimen Anatomical Collection Method Collection Time Receive d Time (Source) Location / / Volume Laterality Blood 02/19/2022 12:27 02/19/2022 AM EDT 12:33 AM EDT Resulting Agency Comment Spec In Lab Gela Novak MD CHEMISTRY ORDERABLES Performing Organization Address City/State/ZIP [place] [address] Hepatitis B Surface Antigen (02/19/2022 12:27 AM EDT) Analysis Performed At [facility] logist Time Signature HepB Surface Negative Negative [facility] LABORATORY Specimen Anatomical Collection Method Collection Time Receive d Time (Source) Location / / Volume Laterality Blood 02/19/2022 12:27 02/19/2022 AM EDT 12:33 AM EDT Resulting Agency Comment Spec In Lab Gela Novak MD CHEMISTRY ORDERABLES Performing Organization Address City/[facility]/ZIP [place] [address] Scan, Peripheral Blood (02/18/2022 4:01 AM EDT) [facility] [email or web address] Method Time Signature Plat Estimate Normal [facility] LABORATORY RBC Morphology Abnormal [facility] LABORATORY Ovalocytes 1-5 /HPF [facility] LABORATORY Stippled RBCs Present >1/HPF [facility] LABORATORY Specimen Anatomical Collection Method Collection Time Receive d Time (Source) Location / / Volume Laterality Blood 02/18/2022 4:01 AM 4:16 EDT AM EDT Resulting Agency Comment Spec In Lab Collette Dye MD HEMATOLOGY ORDERABLES Performing Organization Address City/[facility]/ZIP [place] [address] (ABNORMAL) Differential, Automated (02/18/2022 4:01 AM EDT) [facility] [email or web address] Method Time Signature Neutrophils % 70.4 % [facility] LABORATORY Neutr Abs (ANC) 10.70 (H) 1.70 - [facility] 6.10 [facility] x10(3)/[facility] LABORATORY Lymphocytes % 8.0 % [facility] LABORATORY Lymphocytes Abs 1.2 0.9 - 3.2 [facility] x10(3)/[facility] LABORATORY Monocytes % 7.7 % [facility] LABORATORY Monocyte Abs 1.2 (H) 0.3 - 0.9 [facility] x10(3)/[facility] LABORATORY Eosinophils % 3.2 % [facility] LABORATORY Eosinophils Abs 0.5 (H) 0.0 - 0.4 [facility] x10(3)/[facility] LABORATORY Basophils % 0.4 % [facility] LABORATORY Basophils Abs 0.1 0.0 - 0.1 [facility] x10(3)/[facility] LABORATORY Immature Gran % 10.30 % [facility] LABORATORY Comment: Immature granulocytes(IG's)percentage an d absolute count will include metamyelocytes, myelocytes, and promyelo cytes. Blood smears from CBCs yielding IG's will be scanned manually for concor dance. If this scan disagrees with the automated IG or if promyelocytes are not ed, a manual differential will be performed. Gemini Gran Abs 1.56 (H) 0.00 - 0.04 x10(3)/[facility] LABORATORY Specimen Anatomical Collection Method Collection Time Receive d Time (Source) Location / / Volume Laterality Blood 02/18/2022 4:01 AM 4:16 EDT AM EDT Resulting Agency Comment Spec In Lab Collette Dye MD HEMATOLOGY ORDERABLES Performing Organization Address City/State/[place] [address] (ABNORMAL) Hemogram (02/18/2022 4:01 AM EDT) Analysis Performed At Patho logist Time Signature WBC 15.2 (H) 4.0 - 9.5 [facility] x10(3)/[facility] LABORATORY RBC 2.44 (L) 4.58 - [facility] 5.54 [facility] x10(6)/[facility] LABORATORY Hemoglobin 7.0 (L) 13.7 - [facility] 16.5 g/dL [facility] LABORATORY Hematocrit 22.0 (L) 40.5 - [facility] 48.5 % [facility] LABORATORY MCV 90.2 82.9 - [facility] 93.1 fL [facility] LABORATORY MCH 28.7 27.5 - [facility] 32.1 pg [facility] LABORATORY MCHC 31.8 (L) 32.0 - [facility] 35.7 g/dL [facility] LABORATORY Platelets 325 145 - 357 [facility] x10(3)/[facility] LABORATORY RDWSD 51.1 (H) 36.0 - [facility] 45.0 [facility] LABORATORY RDWCV 15.5 (H) 11.4 - [facility] 13.8 % [facility] LABORATORY MPV 8.8 7.6 - 12.9 [facility] LABORATORY nRBC % Auto 0.0 % [facility] LABORATORY nRBC Abs Auto 0.000 0.000 - [facility] 0.000 [facility] x10(3)/[facility] LABORATORY Specimen Anatomical Collection Method Collection Time Receive d Time (Source) Location / / Volume Laterality Blood 02/18/2022 4:01 AM 4:16 EDT AM EDT Resulting Agency Comment Spec In Lab Collette Dye MD HEMATOLOGY ORDERABLES Performing Organization Address City/State/[place] [address] (ABNORMAL) Basic Metabolic Panel (non-fasting) (02/18/2022 4:01 AM EDT) P athologist Signature Glucose Lvl 98 65 - 199 [facility] mg/dL [facility] LABORATORY Comment: Diabetes: >=200 mg/dL plus symp toms BUN 36 (H) 10 - 20 mg/dL [facility] LABORATORY Creatinine 3.80 (H) 0.80 - 1.50 mg/dL [facility] LABORATORY Comment: result rechecked-trb Sodium 132 (L) 135 - 145 mmol/L [facility]ORATORY Potassium 4.3 3.5 - 5.0 mmol/L [facility] LABORATORY Comment: Please note: ??Patients with WBC >100,00 0 may have falsely elevated Potassium levels. ??For accurate Potassium quantif ication in these patients send serum separator tube (gold top) for subsequent determinations. ??Contact the Clinical Chemistry Laboratory if there are any qu estions. Chloride 97 (L) 98 - 107 mmol/L [facility] LABORATORY CO2 28 22 - 31 mmol/L [facility]OR[facility] Anion Gap 7 5 - 15 mmol/L [facility] LABORATORY Calcium 7.9 (L) 8.5 - 10.5 mg/dL [facility] Estimated GFR 21 (L) >=60 mL/min/1.73 m?? [facility] LABORATORY Comment: This patient's estimated [...] Organization Address City/State/ZIP Code Phon e Number [address] (ABNORMAL) Phosphorus (02/18/2022 4:01 AM EDT) P athologist Signature Phosphorus 4.9 (H) 2.5 - 4.5 [facility] mg/dL [facility] LABORATORY Specimen Anatomical Collection Method Collection Time Receive d Time (Source) Location / / Volume Laterality Blood 02/18/2022 4:01 AM 2 4:17 EDT AM EDT Resulting Agency Comment Spec In Lab Gela Novak MD CHEMISTRY ORDERABLES Performing Organization Address City/State/ZIP Code Phon e Number [address] Magnesium (02/18/2022 4:01 AM EDT) P athologist Signature Magnesium 0.79 0.69 - 1.07 [facility]/L [facility] LABORATORY Specimen Anatomical Collection Method Collection Time Receive d Time (Source) Location / / Volume Laterality Blood 02/18/2022 4:01 AM 4:17 EDT AM EDT Resulting Agency Comment Spec In Lab Gela Novak MD CHEMISTRY ORDERABLES Performing Organization Address City/[facility]/ZIP Code Phon e Number [address] Anaerobic Culture (02/17/2022 8:35 AM EDT) [facility] [email or web address] Method Time Signature Anaerobic No anaerobic [facility] Culture organisms [facility] LABORATORY Specimen Anatomical Collection Method Collection Time Receive d Time (Source) Location / / Volume Laterality Deep Wound STRUCTURE OF LEFT 02/17/2022 8:35 AM / THIGH / Unknown EDT 10:03 AM EDT Comment: Left lateral thigh wound Resulting Agency Comment Spec In Lab Jayme Armstrong MD MICROBIOLOGY - GENERAL ORDER JT Performing Organization Address [facility] [place] [address] (ABNORMAL) Abscess/Wound Aspirate Culture (02/17/2022 8:35 AM EDT) Component Value Ref Test Analysis Performed At [facility] [email or web address] Range Method Time Signature Abscess/Woun One colony of JOSH d Aspirate Serratia marcescens [place] Culture : Susceptibilities [facility] (A) LABORATORY Gram Stain Moderate Neutrophils JOSH No microorganisms seen. [facility] ([place] [place]) (A) [facility] LABORATORY Organism Serratia marcescens [facility] (A) [facility] LABORATORY Specimen Anatomical Collection Method Collection Time Receive d Time (Source) Location / / Volume Laterality Deep Wound STRUCTURE OF LEFT 02/17/2022 8:35 AM / THIGH / Unknown EDT 10:03 AM EDT Comment: Left lateral thigh wound Resulting Agency Comment Spec In Lab Jayme Armstrong MD MICROBIOLOGY - GENERAL ORDER JT Performing Organization Address City/[facility]/ZIP Code Phon e Number [address] Anaerobic Culture (02/17/2022 8:35 AM EDT) [facility] Method Time Signature Anaerobic No anaerobic [facility] Culture organisms [facility] LABORATORY Specimen Anatomical Collection Method Collection Time Receive d Time (Source) Location / / Volume Laterality Deep Wound STRUCTURE OF LEFT 02/17/2022 8:35 AM 01/30 THIGH / Unknown EDT 10:02 AM EDT Comment: left superior thigh wound Resulting Agency Comment Spec In Lab Jayme Armstrong MD MICROBIOLOGY - GENERAL ORDER JT Performing Organization Address City/[facility] [place] [address] (ABNORMAL) Abscess/Wound Aspirate Culture (02/17/2022 8:35 AM EDT) Component Value Ref Test Analysis Performed At [facility] Method Time Signature Abscess/Woun One colony of Serratia gabriele scens : Susceptibilities previously reported [place] Aspirate One colony of Pseudomonas ae ruginosa : Susceptibilities previously reported [place] Culture (A) [facility] LABORATORY Gram Stain Moderate Neutrophils seen MAR Y No microorganisms seen. [facility] OCK (A) [facility] LABORATORY Organism Serratia marcescens [facility] (A) [facility] LABORATORY Organism Pseudomonas JOSH aeruginosa (A) [facility] LABORATORY Specimen Anatomical Collection Method Collection Time Receive d Time (Source) Location / / Volume Laterality Deep Wound STRUCTURE OF LEFT 02/17/2022 8:35 AM 01/30 THIGH / Unknown EDT 10:02 AM EDT Comment: left superior thigh wound Resulting Agency Comment Spec In Lab Jayme Armstrong MD MICROBIOLOGY - GENERAL ORDER JT Performing Organization Address City/[facility]/[place] [address] (ABNORMAL) Differential, Automated (02/17/2022 3:40 AM EDT) [facility] Method Time Signature Neutrophils % 66.7 % [facility] LABORATORY Neutr Abs (ANC) 11.34 (H) 1.70 - [facility] 6.10 [facility] x10(3)/[facility] L LABORATORY Lymphocytes % 8.6 % [facility] LABORATORY Lymphocytes Abs 1.5 0.9 - 3.2 [facility] x10(3)/[facility] LABORATORY Monocytes % 6.6 % [facility] LABORATORY Monocyte Abs 1.1 (H) 0.3 - 0.9 [facility] x10(3)/[facility] LABORATORY Eosinophils % 3.9 % [facility] LABORATORY Eosinophils Abs 0.7 (H) 0.0 - 0.4 [facility] x10(3)/[facility] LABORATORY Basophils % 0.5 % [facility] LABORATORY Basophils Abs 0.1 0.0 - 0.1 [facility] x10(3)/[facility] LABORATORY Immature Gran % 13.70 % [facility] LABORATORY Comment: Immature granulocytes(IG's)percentage an d absolute count will include metamyelocytes, myelocytes, and promyelo cytes. Blood smears from CBCs yielding IG's will be scanned manually for concor dance. If this scan disagrees with the automated IG or if promyelocytes are not ed, a manual differential will be performed. Gemini Gran Abs 2.33 (H) 0.00 - 0.04 x10(3)/[facility] LABORATORY Specimen Anatomical Collection Method Collection Time Receive d Time (Source) Location / / Volume Laterality Blood 02/17/2022 3:40 AM 3:59 EDT AM EDT Resulting Agency Comment Spec In Lab Collette Dye MD HEMATOLOGY ORDERABLES Performing Organization Address City/State/[place] [address] (ABNORMAL) Hemogram (02/17/2022 3:40 AM EDT) Analysis Performed At Patho logist Time Signature WBC 17.0 (H) 4.0 - 9.5 [facility] x10(3)/[facility] LABORATORY RBC 2.46 (L) 4.58 - [facility] 5.54 [facility] x10(6)/[facility] LABORATORY Hemoglobin 7.1 (L) 13.7 - [facility] 16.5 g/dL [facility] LABORATORY Hematocrit 22.2 (L) 40.5 - [facility] 48.5 % [facility] LABORATORY MCV 90.2 82.9 - [facility] [place] 93.1 [facility] LABORATORY MCH 28.9 27.5 - [facility] [place] 32.1 pg [facility] LABORATORY MCHC 32.0 32.0 - [facility] [place] 35.7 g/dL [facility] LABORATORY Platelets 316 145 - 357 [facility] [place] x10(3)/[facility] LABORATORY RDWSD 51.5 (H) 36.0 - [facility] [place] 45.0 [facility] LABORATORY RDWCV 15.7 (H) 11.4 - [facility] [place] 13.8 % [facility] LABORATORY MPV 9.0 7.6 - 12.9 [facility] [place] [facility] LABORATORY nRBC % Auto 0.0 % [facility] LABORATORY nRBC Abs Auto 0.000 0.000 - [facility] [place] 0.000 [facility] x10(3)/[facility] LABORATORY Specimen Anatomical Collection Method Collection Time Receive d Time (Source) Location / / Volume Laterality Blood 02/17/2022 3:40 AM 2 3:59 EDT AM EDT Resulting Agency Comment Spec In Lab Collette Dye MD HEMATOLOGY ORDERABLES Performing Organization Address City/State/[place] [address] (ABNORMAL) Basic Metabolic Panel (non-fasting) (02/17/2022 3:40 AM EDT) P athologist Signature Glucose Lvl 101 65 - 199 [facility] mg/dL [facility] LABORATORY Comment: Diabetes: >=200 mg/dL plus symp toms BUN 51 (H) 10 - 20 mg/dL [facility] LABORATORY Creatinine 5.07 (H) 0.80 - 1.50 mg/dL [facility] LABORATORY Comment: result rechecked-sf Sodium 130 (L) 135 - 145 mmol/L [facility] LABOR[facility] Potassium 4.5 3.5 - 5.0 mmol/L [facility] LABOR[facility]ORY Comment: Please note: ??Patients with WBC >100,00 0 may have falsely elevated Potassium levels. ??For accurate Potassium quantif ication in these patients send serum separator tube (gold top) for subsequent determinations. ??Contact the Clinical Chemistry Laboratory if there are any qu estions. Chloride 96 (L) 98 - 107 mmol/L [facility] LABORATORY CO2 24 22 - 31 mmol/L [facility] LABORATORY Anion Gap 10 5 - 15 mmol/L [facility] LABORATORY Calcium 7.8 (L) 8.5 - 10.5 mg/dL [facility]OR[facility] Estimated GFR 15 (L) >=60 mL/min/1.73 m?? [facility] LABORATORY Comment: This patient's estimated [...] Organization Address City/State/[place] [address] (ABNORMAL) Phosphorus (02/17/2022 3:40 AM EDT) P athologist Signature Phosphorus 5.7 (H) 2.5 - 4.5 [facility] mg/dL [facility] LABORATORY Specimen Anatomical Collection Method Collection Time Receive d Time (Source) Location / / Volume Laterality Blood 02/17/2022 3:40 AM 2 3:59 EDT AM EDT Resulting Agency Comment Spec In Lab Gela Novak MD CHEMISTRY ORDERABLES Performing Organization Address City/State/[place] [address] [facility] [address] Magnesium (02/17/2022 3:40 AM EDT) P athologist Signature Magnesium 0.86 0.69 - 1.07 [facility] mmol/L [facility] LABORATORY Specimen Anatomical Collection Method Collection Time Receive d Time (Source) Location / / Volume Laterality Blood 02/17/2022 3:40 AM 3:59 EDT AM EDT Resulting Agency Comment Spec In Lab Gela Novak MD CHEMISTRY ORDERABLES Performing Organization Address City/State/ZIP Code Phon e Number [place] [id number] [facility] LABORATORY Drive (ABNORMAL) Differential, Automated (02/16/2022 4:05 AM EDT) Patholo gist Method Time Signature Neutrophils % 66.8 % [facility] LABORATORY Neutr Abs (ANC) 12.70 (H) 1.70 - [facility] 6.10 [facility] x10(3)/[facility] LABORATORY Lymphocytes % 6.8 % [facility] LABORATORY Lymphocytes Abs 1.3 0.9 - 3.2 [facility] x10(3)/[facility] LABORATORY Monocytes % 5.9 % [facility] LABORATORY Monocyte Abs 1.1 (H) 0.3 - 0.9 [facility] x10(3)/[facility] LABORATORY Eosinophils % 3.2 % [facility] LABORATORY Eosinophils Abs 0.6 (H) 0.0 - 0.4 [facility] x10(3)/[facility] LABORATORY Basophils % 0.6 % [facility] LABORATORY Basophils Abs 0.1 0.0 - 0.1 [facility] x10(3)/[facility] LABORATORY Immature Gran % 16.70 % [facility] LABORATORY Comment: Immature granulocytes(IG's)percentage an d absolute count will include metamyelocytes, myelocytes, and promyelo cytes. Blood smears from CBCs yielding IG's will be scanned manually for concor dance. If this scan disagrees with the automated IG or if promyelocytes are not ed, a manual differential will be performed. Gemini Gran Abs 3.17 (H) 0.00 - 0.04 x10(3)/[facility] LABORATORY Specimen Anatomical Collection Method Collection Time Receive d Time (Source) Location / / Volume Laterality Blood 02/16/2022 4:05 AM 2 4:20 EDT AM EDT Resulting Agency Comment Spec In Lab Veto Hidalgo MD HEMATOLOGY ORDERABLES Performing Organization Address City/State/[place] [address] (ABNORMAL) Hemogram (02/16/2022 4:05 AM EDT) Analysis Performed At Patho logist Time Signature WBC 19.0 (H) 4.0 - 9.5 [facility] x10(3)/[facility] LABORATORY RBC 2.50 (L) 4.58 - [facility] 5.54 [facility] x10(6)/[facility] LABORATORY Hemoglobin 7.3 (L) 13.7 - [facility] 16.5 g/dL [facility] LABORATORY Hematocrit 22.3 (L) 40.5 [facility] 48[facility]5 % [facility] MCV 89.2 82.9 - [facility]1 [facility] LABORATORY MCH 29.2 27.5 - [facility] 32.1 pg [facility] LABORATORY MCHC 32.7 32.0 - [facility] 35.7 g/dL [facility] LABORATORY Platelets 296 145 - 357 [facility] x10(3)/[facility] LABORATORY RDWSD 51.5 (H) 36.0 - [facility] MANDO 45.0 [facility] LABORATORY RDWCV 15.7 (H) 11.4 - [facility] MANDO 13.8 % [facility] LABORATORY MPV 9.2 7.6 - 12.9 [facility] LABORATORY nRBC % Auto 0.0 % [facility] LABORATORY nRBC Abs Auto 0.000 0.000 - [facility] MANDO 0.000 [facility] x10(3)/[facility] LABORATORY Specimen Anatomical Collection Method Collection Time Receive d Time (Source) Location / / Volume Laterality Blood 02/16/2022 4:05 AM 4:20 EDT AM EDT Resulting Agency Comment Spec In Lab Veto Hidalgo MD HEMATOLOGY ORDERABLES Performing Organization Address City/State/[place] [address] (ABNORMAL) Basic Metabolic Panel (non-fasting) (02/16/2022 4:05 AM EDT) P athologist Signature Glucose Lvl 94 65 - 199 [facility] mg/dL [facility] LABORATORY Comment: Diabetes: >=200 mg/dL plus symp toms BUN 35 (H) 10 - 20 mg/dL [facility] LABORATORY Creatinine 3.65 (H) 0.80 - 1.50 mg/dL [facility] LABORATORY Comment: result rechecked-bm Sodium 128 (L) 135 - 145 mmol/L [facility]OR[facility] Potassium 4.4 3.5 - 5.0 mmol/L [facility] Comment: Please note: ??Patients with WBC >100,00 0 may have falsely elevated Potassium levels. ??For accurate Potassium quantif ication in these patients send serum separator tube (gold top) for subsequent determinations. ??Contact the Clinical Chemistry Laboratory if there are any qu estions. Chloride 95 (L) 98 - 107 mmol/L [facility] LABORATORY CO2 26 22 - 31 mmol/L [facility] LABORATORY Anion Gap 7 5 - 15 mmol/L [facility] LABORATORY Calcium 7.7 (L) 8.5 - 10.5 mg/dL [facility] Estimated GFR 22 (L) >=60 mL/min/1.73 m?? [facility] LABORATORY Comment: This patient's estimated [...] MD CHEMISTRY ORDERABLES Performing Organization Address City/[facility]/ZIP [place] [address] Phosphorus (02/16/2022 4:05 AM EDT) P athologist Signature Phosphorus 4.5 2.5 - 4.5 [facility] mg/dL [facility] Specimen Anatomical Collection Method Collection Time Receive d Time (Source) Location / / Volume Laterality Blood 02/16/2022 4:05 AM 2 4:20 EDT AM EDT Resulting Agency Comment Spec In Lab Gela Novak MD CHEMISTRY ORDERABLES Performing Organization Address City/State/ZIP [place] [address] Magnesium (02/16/2022 4:05 AM EDT) P athologist Signature Magnesium 0.83 0.69 - 1.07 [facility] mmol/L [facility]ORATORY Specimen Anatomical Collection Method Collection Time Receive d Time (Source) Location / / Volume Laterality Blood 02/16/2022 4:05 AM 2 4:20 EDT AM EDT Resulting Agency Comment Spec In Lab Gela Novak MD CHEMISTRY ORDERABLES Performing Organization Address City/State/ZIP [place] [address] Anaerobic Culture (02/15/2022 9:06 AM EDT) Patholo gist Method Time Signature Anaerobic No anaerobic [facility] Culture organisms [facility] LABORATORY Specimen Anatomical Collection Method Collection Time Receive d Time (Source) Location / / Volume Laterality Deep Wound STRUCTURE OF LEFT 02/15/2022 9:06 AM 01/29 THIGH / Unknown EDT 10:49 AM EDT Comment: Left thigh wound culture Resulting Agency Comment Spec In Lab Jayme Armstrong MD MICROBIOLOGY - GENERAL ORDER JT Performing Organization Address City/State/ZIP Code [place] [address] (ABNORMAL) Abscess/Wound Aspirate Culture (02/15/2022 9:06 AM EDT) [facility] Method Time Signature Abscess/Wound Few Serratia marcescens MA RY Aspirate Rare Pseudomonas aeruginosa HI [facility] Culture Rare mixed bacterial morphotypes suggestive of normal cutaneous yessy [facility] LABORATORY Gram Stain Moderate Gram Positive Cocci JOS[facility] Rare Gram Negative Rods [facility] OCK ([facility] LABORATORY Organism Serratia JOS[facility] marcescens (A) [facility] LABORATORY Organism Pseudomonas JOS[facility] aeruginosa (A) [facility] LABORATORY Specimen Anatomical Collection Method Collection Time [...] Organization Address City/State/[place] [address] (ABNORMAL) Differential, Automated (02/15/2022 3:50 AM EDT) [facility] gist Method Time Signature Neutrophils % 61.8 % [facility] LABORATORY Neutr Abs (ANC) 13.66 (H) 1.70 - [facility] 6.10 [facility] x10(3)/[facility] LABORATORY Lymphocytes % 7.3 % [facility] LABORATORY Lymphocytes Abs 1.6 0.9 - 3.2 [facility] x10(3)/[facility] LABORATORY Monocytes % 5.4 % [facility] LABORATORY Monocyte Abs 1.2 (H) 0.3 - 0.9 [facility] x10(3)/[facility] LABORATORY Eosinophils % 3.1 % [facility] LABORATORY Eosinophils Abs 0.7 (H) 0.0 - 0.4 [facility] x10(3)/[facility] LABORATORY Basophils % 0.5 % [facility] LABORATORY Basophils Abs 0.1 0.0 - 0.1 [facility] x10(3)/[facility] LABORATORY Immature Gran % 21.90 % [facility] LABORATORY Comment: Immature granulocytes(IG's)percentage an d absolute count will include metamyelocytes, myelocytes, and promyelo cytes. Blood smears from CBCs yielding IG's will be scanned manually for ny crain. If this scan disagrees with the automated IG or if promyelocytes are not ed, a manual differential will be performed. Gemini Gran Abs 4.85 (H) 0.00 - 0.04 x10(3)/[facility] LABORATORY Specimen Anatomical Collection Method Collection Time Receive d Time (Source) Location / / Volume Laterality Blood 02/15/2022 3:50 AM 4:05 EDT AM EDT Resulting Agency Comment Spec In Lab Veto Hidalgo MD HEMATOLOGY ORDERABLES Performing Organization Address City/State/[place] [address] (ABNORMAL) Hemogram (02/15/2022 3:50 AM EDT) Analysis Performed At Patho logist Time Signature WBC 22.1 (H) 4.0 - 9.5 [facility] x10(3)/[facility] LABORATORY RBC 2.43 (L) 4.58 - [facility] 5.54 [facility] x10(6)/[facility] LABORATORY Hemoglobin 7.2 (L) 13.7 - [facility] 16.5 g/dL [facility] LABORATORY Hematocrit 21.3 (L) 40.5 - [facility] 48.5 % [facility] LABORATORY MCV 87.7 82.9 - [facility] 93.1 [facility] LABORATORY MCH 29.6 27.5 - [facility] 32.1 pg [facility] LABORATORY MCHC 33.8 32.0 - [facility] 35.7 g/dL [facility] LABORATORY Platelets 254 145 - 357 [facility] x10(3)/[facility] LABORATORY RDWSD 49.2 (H) 36.0 - [facility] 45.0 [facility] LABORATORY RDWCV 15.3 (H) 11.4 - [facility] 13.8 % [facility] LABORATORY MPV 9.3 7.6 - 12.9 [facility] LABORATORY nRBC % Auto 0.0 % [facility] LABORATORY nRBC Abs Auto 0.000 0.000 - [facility] 0.000 [facility] x10(3)/[facility] LABORATORY Specimen Anatomical Collection Method Collection Time Receive d Time (Source) Location / / Volume Laterality Blood 02/15/2022 3:50 AM 4:05 EDT AM EDT Resulting Agency Comment Spec In Lab Veto Hidalgo MD HEMATOLOGY ORDERABLES Performing Organization Address City/State/[place] [address] (ABNORMAL) Basic Metabolic Panel (non-fasting) (02/15/2022 3:50 AM EDT) P athologist Signature Glucose Lvl 91 65 - 199 [facility] mg/dL [facility] LAB[facility]ORY Comment: Diabetes: >=200 mg/dL plus symp toms BUN 62 (H) 10 - 20 mg/dL [facility] LABORATORY Creatinine 5.16 (H) 0.80 - 1.50 mg/dL [facility] LABORATORY Comment: result rechecked- Sodium 126 (L) 135 - 145 mmol/L [facility] LABORATORY Potassium 4.8 3.5 - 5.0 mmol/L [facility]OR[facility] Comment: Please note: ??Patients with WBC >100,00 0 may have falsely elevated Potassium levels. ??For accurate Potassium quantif ication in these patients send serum separator tube (gold top) for subsequent determinations. ??Contact the Clinical Chemistry Laboratory if there are any qu estions. Chloride 92 (L) 98 - 107 mmol/L [facility] LABORATORY CO2 23 22 - 31 mmol/L [facility] LABORATORY Anion Gap 11 5 - 15 mmol/L [facility] LABORATORY Calcium 7.5 (L) 8.5 - 10.5 mg/dL [facility] Estimated GFR 14 (L) >=60 mL/min/1.73 m?? [facility] LABORATORY Comment: This patient's estimated [...] MD CHEMISTRY ORDERABLES Performing Organization Address City/[facility]/ZIP Code Phon e Number [address] (ABNORMAL) Phosphorus (02/15/2022 3:50 AM EDT) P athologist Signature Phosphorus 5.7 (H) 2.5 - 4.5 [facility]dL [facility] [facility] Specimen Anatomical Collection Method Collection Time Receive d Time (Source) Location / / Volume Laterality Blood 02/15/2022 3:50 AM 2 4:05 EDT AM EDT Resulting Agency Comment Spec In Lab Gela Novak MD CHEMISTRY ORDERABLES Performing Organization Address City/[facility]/ZIP [place] [address] Magnesium (02/15/2022 3:50 AM EDT) P athologist Signature Magnesium 0.82 0.69 - 1.07 [facility]/L [facility] Specimen Anatomical Collection Method Collection Time Receive d Time (Source) Location / / Volume Laterality Blood 02/15/2022 3:50 AM 2 4:05 EDT AM EDT Resulting Agency Comment Spec In Lab Gela Novak MD CHEMISTRY ORDERABLES Performing Organization Address City/[facility]/ZIP [place] [address] Scan, Peripheral Blood (02/14/2022 5:26 AM EDT) Patholo gist Method Time Signature Plat Estimate Normal [facility] RBC Morphology Abnormal [facility] Hypochromia Slight [facility] Specimen Anatomical Collection Method Collection Time Receive d Time (Source) Location / / Volume Laterality Blood 02/14/2022 5:26 AM 5:45 EDT AM EDT Resulting Agency Comment Spec In Lab Veto Hidalgo MD HEMATOLOGY ORDERABLES Performing Organization Address City/State/[place] [address] (ABNORMAL) Differential, Automated (02/14/2022 5:26 AM EDT) [facility] Method Time Signature Neutrophils % 52.2 % [facility] Neutr Abs (ANC) 12.07 (H) 1.70 - [facility] 6.10 [facility] x10(3)/[facility] LABORATORY Lymphocytes % 7.7 % [facility] Lymphocytes Abs 1.8 0.9 - 3.2 [facility] x10(3)/[facility] LABORATORY Monocytes % 6.7 % [facility] Monocyte Abs 1.5 (H) 0.3 - 0.9 [facility] x10(3)/[facility] LABORATORY Eosinophils % 3.1 % [facility] Eosinophils Abs 0.7 (H) 0.0 - 0.4 [facility] x10(3)/[facility] LABORATORY Basophils % 0.3 % [facility] Basophils Abs 0.1 0.0 - 0.1 [facility] x10(3)/[facility] LABORATORY Immature Gran % 30.00 % [facility] Comment: Immature granulocytes(IG's)percentage an d absolute count will include metamyelocytes, myelocytes, and promyelo cytes. Blood smears from CBCs yielding IG's will be scanned manually for concor dance. If this scan disagrees with the automated IG or if promyelocytes are not ed, a manual differential will be performed. Gemini Gran Abs 6.92 (H) 0.00 - 0.04 x10(3)/[facility] LABORATORY Specimen Anatomical Collection Method Collection Time Receive d Time (Source) Location / / Volume Laterality Blood 02/14/2022 5:26 AM 2 5:45 EDT AM EDT Resulting Agency Comment Spec In Lab Veto Hidalgo MD HEMATOLOGY ORDERABLES Performing Organization Address City/State/[place] [address] (ABNORMAL) Hemogram (02/14/2022 5:26 AM EDT) Analysis Performed At Patho logist Time Signature WBC 23.1 (H) 4.0 - 9.5 [facility] x10(3)/[facility] LABORATORY RBC 2.62 (L) 4.58 - [facility] 5.54 [facility] x10(6)/[facility] LABORATORY Hemoglobin 8.0 (L) 13.7 - [facility] 16.5 g/dL [facility] Hematocrit 23.0 (L) 40.5 - [facility] 48.5 % [facility] MCV 87.8 82.9 - [facility] 93.1 [facility] LABORATORY MCH 30.5 27.5 - [facility] 32.1 pg [facility] MCHC 34.8 32.0 - [facility] 35.7 g/dL [facility] Platelets 240 145 - 357 [facility] x10(3)/[facility] LABORATORY RDWSD 49.2 (H) 36.0 - [facility] 45.0 [facility] LABORATORY RDWCV 15.5 (H) 11.4 - [facility] 13.8 % [facility] MPV 9.4 7.6 - 12.9 [facility] LABORATORY nRBC % Auto 0.0 % [facility] nRBC Abs Auto 0.000 0.000 - [facility] 0.000 [facility] x10(3)/[facility] LABORATORY Specimen Anatomical Collection Method Collection Time Receive d Time (Source) Location / / Volume Laterality Blood 02/14/2022 5:26 AM 2 5:45 EDT AM EDT Resulting Agency Comment Spec In Lab Veto Hidalgo MD HEMATOLOGY ORDERABLES Performing Organization Address City/State/[place] [address] (ABNORMAL) Basic Metabolic Panel (non-fasting) (02/14/2022 5:26 AM EDT) P athologist Signature Glucose Lvl 92 65 - 199 [facility] mg/dL [facility] Comment: Diabetes: >=200 mg/dL plus symp toms BUN 47 (H) 10 - 20 mg/dL [facility] Creatinine 4.06 (H) 0.80 - 1.50 mg/dL [facility] Comment: result rechecked-KS Sodium 127 (L) 135 - 145 mmol/L [facility] Potassium 4.4 3.5 - 5.0 mmol/L [facility] Comment: Please note: ??Patients with WBC >100,00 0 may have falsely elevated Potassium levels. ??For accurate Potassium quantif ication in these patients send serum separator tube (gold top) for subsequent determinations. ??Contact the Clinical Chemistry Laboratory if there are any qu estions. Chloride 91 (L) 98 - 107 mmol/L [facility] CO2 23 22 - 31 mmol/L [facility] Anion Gap 13 5 - 15 mmol/L [facility] Calcium 7.1 (L) 8.5 - 10.5 mg/dL [facility] Estimated GFR 19 (L) >=60 mL/min/1.73 m?? [facility] Comment: This patient's estimated [...] MD CHEMISTRY ORDERABLES Performing Organization Address City/[facility]/ZIP Code Phon e Number [address] (ABNORMAL) Phosphorus (02/14/2022 5:26 AM EDT) P athologist Signature Phosphorus 4.7 (H) 2.5 - 4.5 [facility] mg/dL [facility] Specimen Anatomical Collection Method Collection Time Receive d Time (Source) Location / / Volume Laterality Blood 02/14/2022 5:26 AM 2 5:45 EDT AM EDT Resulting Agency Comment Spec In Lab Gela Novak MD CHEMISTRY ORDERABLES Performing Organization Address City/[facility]/ZIP [place] [address] Magnesium (02/14/2022 5:26 AM EDT) P athologist Signature Magnesium 0.80 0.69 - 1.07 [facility] mmol/L [facility] Specimen Anatomical Collection Method Collection Time Receive d Time (Source) Location / / Volume Laterality Blood 02/14/2022 5:26 AM 2 5:45 EDT AM EDT Resulting Agency Comment Spec In Lab Gela Novak MD CHEMISTRY ORDERABLES Performing Organization Address City/[facility]/ZIP [place] [address] Femur w Contrast [...] who have questions please contact the health career technical education teacher that requested your imaging first. ? Narrative [...] ho have questions please contact the health career technical education teacher that requested your imaging first. Parrish Betancourt [...] who have questions please contact the health career technical education teacher that requested your imaging first. ? Narrative [...] ho have questions please contact the health career technical education teacher that requested your imaging first. Parrish Betancourt [...] who have questions please contact the health career technical education teacher that requested your imaging first. ? Electronically signed by: Mercedes Redding MD , [facility] ([phone]), at 02/13/2022 8:56 AM Narrative 02/13/2022 8:56 [...] ho have questions please contact the health career technical education teacher that requested your imaging first. Parrish Betancourt MD IMG DX ORDERABLES Scan, Peripheral Blood (02/13/2022 12:20 AM EDT) [facility] gist Method Time Signature Plat Estimate Normal [facility] RBC Morphology Abnormal [facility] Hypochromia Slight [facility] Lawrence Cells 1-5 /HPF [facility] Stippled RBCs Present >1/HPF [facility] Toxic Present [facility] LABORATORY Specimen Anatomical Collection Method Collection Time Receive d Time (Source) Location / / Volume Laterality Blood 02/13/2022 12:20 02/13/2022 AM EDT 12:37 AM EDT Resulting Agency Comment Spec In Lab Kaitlyn Rock MD HEMATOLOGY ORDERABLES Performing Organization Address City/State/[place] [address] (ABNORMAL) Differential, Automated (02/13/2022 12:20 AM EDT) [facility] Method Time Signature Neutrophils % 44.9 % [facility] Neutr Abs (ANC) 11.00 (H) 1.70 - [facility] 6.10 [facility] x10(3)/[facility] LABORATORY Lymphocytes % 8.8 % [facility] Lymphocytes Abs 2.2 0.9 - 3.2 [facility] x10(3)/[facility] LABORATORY Monocytes % 9.3 % [facility] Monocyte Abs 2.3 (H) 0.3 - 0.9 [facility] x10(3)/[facility] LABORATORY Eosinophils % 2.6 % [facility] Eosinophils Abs 0.6 (H) 0.0 - 0.4 [facility] x10(3)/[facility] LABORATORY Basophils % 0.3 % [facility] Basophils Abs 0.1 0.0 - 0.1 [facility] x10(3)/[facility] LABORATORY Immature Gran % 34.10 % [facility] Comment: Immature granulocytes(IG's)percentage an d absolute count will include metamyelocytes, myelocytes, and promyelo cytes. Blood smears from CBCs yielding IG's will be scanned manually for concor dance. If this scan disagrees with the automated IG or if promyelocytes are not ed, a manual differential will be performed. Gemini Gran Abs 8.35 (H) 0.00 - 0.04 x10(3)/[facility] LABORATORY Specimen Anatomical Collection Method Collection Time Receive d Time (Source) Location / / Volume Laterality Blood 02/13/2022 12:20 02/13/2022 AM EDT 12:37 AM EDT Resulting Agency Comment Spec In Lab Kaitlyn Rock MD HEMATOLOGY ORDERABLES Performing Organization Address City/State/[place] [address] (ABNORMAL) Hemogram (02/13/2022 12:20 AM EDT) Analysis Performed At Patho logist Time Signature WBC 24.5 (H) 4.0 - 9.5 [facility] x10(3)/[facility] LABORATORY RBC 2.72 (L) 4.58 - [facility] 5.54 [facility] x10(6)/[facility] LABORATORY Hemoglobin 8.0 (L) 13.7 - [facility] 16.5 g/dL [facility] Hematocrit 23.6 (L) 40.5 - [facility] 48.5 % [facility] MCV 86.8 82.9 - [facility] 93.1 [facility] LABORATORY MCH 29.4 27.5 - [facility] 32.1 pg [facility] MCHC 33.9 32.0 - [facility] 35.7 g/dL [facility] Platelets 201 145 - 357 [facility] x10(3)/[facility] LABORATORY RDWSD 48.3 (H) 36.0 - [facility] 45.0 [facility] LABORATORY RDWCV 15.4 (H) 11.4 - [facility] 13.8 % [facility] MPV 9.7 7.6 - 12.9 [facility] LABORATORY nRBC % Auto 0.0 % [facility] nRBC Abs Auto 0.000 0.000 - [facility] 0.000 [facility] x10(3)/[facility] LABORATORY Specimen Anatomical Collection Method Collection Time Receive d Time (Source) Location / / Volume Laterality Blood 02/13/2022 12:20 02/13/2022 AM EDT 12:37 AM EDT Resulting Agency Comment Spec In Lab Kaitlyn Rock MD HEMATOLOGY ORDERABLES Performing Organization Address City/State/[place] [address] (ABNORMAL) Basic Metabolic Panel (non-fasting) (02/13/2022 12:20 AM EDT) P athologist Signature Glucose Lvl 120 65 - 199 [facility] mg/dL [facility] Comment: Diabetes: >=200 mg/dL plus symp toms BUN 30 (H) 10 - 20 mg/dL [facility] Creatinine 2.85 (H) 0.80 - 1.50 mg/dL [facility] Comment: result rechecked-bm Sodium 127 (L) 135 - 145 mmol/L [facility] Potassium 3.8 3.5 - 5.0 mmol/L [facility] Comment: Please note: ??Patients with WBC >100,00 0 may have falsely elevated Potassium levels. ??For accurate Potassium quantif ication in these patients send serum separator tube (gold top) for subsequent determinations. ??Contact the Clinical Chemistry Laboratory if there are any qu estions. Chloride 94 (L) 98 - 107 mmol/L [facility] CO2 27 22 - 31 mmol/L [facility] Anion Gap 6 5 - 15 mmol/L [facility] Calcium 7.0 (L) 8.5 - 10.5 mg/dL [facility] Comment: result rechecked-bm Estimated GFR 30 (L) >=60 mL/min/1.73 m?? [facility] Comment: This patient's estimated [...] Organization Address City/State/ZIP [place] [address] Phosphorus (02/13/2022 12:20 AM EDT) P athologist Signature Phosphorus 2.8 2.5 - 4.5 [facility] mg/dL [facility] Specimen Anatomical Collection Method Collection Time Receive d Time (Source) Location / / Volume Laterality Blood 02/13/2022 12:20 02/13/2022 AM EDT 12:37 AM EDT Resulting Agency Comment Spec In Lab Gela Novak MD CHEMISTRY ORDERABLES Performing Organization Address City/State/ZIP Code Phon e Number [address] Magnesium (02/13/2022 12:20 AM EDT) P athologist Signature Magnesium 0.79 0.69 - 1.07 [facility]/L [facility] Specimen Anatomical Collection Method Collection Time Receive d Time (Source) Location / / Volume Laterality Blood 02/13/2022 12:20 02/13/2022 AM EDT 12:37 AM EDT Resulting Agency Comment Spec In Lab Gela Novak MD CHEMISTRY ORDERABLES Performing Organization Address City/State/ZIP Code Phon e Number [address] (ABNORMAL) Sodium (02/12/2022 4:45 PM EDT) P athologist Signature Sodium 128 (L) 135 - 145 [facility]/L [facility] Specimen Anatomical Collection Method Collection Time Receive d Time (Source) Location / / Volume Laterality Blood 02/12/2022 4:45 PM 5:17 EDT PM EDT Resulting Agency Comment Spec In Lab Parrish Betancourt MD CHEMISTRY ORDERABLES Performing Organization Address City/State/ZIP Code Phon e Number [address] Prepare RBC (02/12/2022 9:55 AM EDT) athologist Signature Dispensed? Yes [facility] Specimen Anatomical Collection Method Collection Time Receive d Time (Source) Location / / Volume Laterality Blood 02/12/2022 9:55 AM 2 9:53 EDT AM EDT Parrish Betancourt MD BLOOD BANK ORDERABLES Performing Organization Address City/State/ZIP Code Phon e Number [address] (ABNORMAL) Sodium (02/12/2022 9:16 AM EDT) P athologist Signature Sodium 125 (L) 135 - 145 [facility] mmol/L [facility] Specimen Anatomical Collection Method Collection Time Receive d Time (Source) Location / / Volume Laterality Blood 02/12/2022 9:16 AM 2 9:18 EDT AM EDT Resulting Agency Comment Spec In Lab Parrish Betancourt MD CHEMISTRY ORDERABLES Performing Organization Address City/[facility] Phon e Number [address] (ABNORMAL) Differential, Automated (02/12/2022 12:30 AM EDT) Patholo gist Method Time Signature Neutrophils % 49.1 % [facility]ORY Neutr Abs (ANC) 11.38 (H) 1.70 - [facility] 6.10 [facility] x10(3)/[facility] LABORATORY Lymphocytes % 8.6 % [facility] Lymphocytes Abs 2.0 0.9 - 3.2 [facility] x10(3)/[facility] LABORATORY Monocytes % 10.6 % [facility]ORY Monocyte Abs 2.4 (H) 0.3 - 0.9 [facility] x10(3)/[facility] LABORATORY Eosinophils % 0.9 % [facility]ORY Eosinophils Abs 0.2 0.0 - 0.4 [facility] x10(3)/[facility] LABORATORY Basophils % 0.3 % [facility] Basophils Abs 0.1 0.0 - 0.1 [facility] x10(3)/[facility] LABORATORY Immature Gran % 30.50 % [facility] Comment: Immature granulocytes(IG's)percentage an d absolute count will include metamyelocytes, myelocytes, and promyelo cytes. Blood smears from CBCs yielding IG's will be scanned manually for ny crain. If this scan disagrees with the automated IG or if promyelocytes are not ed, a manual differential will be performed. Gemini Gran Abs 7.06 (H) 0.00 - 0.04 x10(3)/[facility] LABORATORY Specimen Anatomical Collection Method Collection Time Receive d Time (Source) Location / / Volume Laterality Blood 02/12/2022 12:30 02/12/2022 1:03 AM EDT AM EDT Resulting Agency Comment Spec In Lab Kaitlyn Rock MD HEMATOLOGY ORDERABLES Performing Organization Address City/State/[place] [address] (ABNORMAL) Hemogram (02/12/2022 12:30 AM EDT) Analysis Performed At Patho logist Time Signature WBC 23.2 (H) 4.0 - 9.5 [facility] x[facility](3[facility] LABORATORY RBC 2.37 (L) 4.58 - [facility] 5.54 [facility] x10(6)/[facility] LABORATORY Hemoglobin 6.9 (L) 13.7 - [facility] 16.5 g/dL [facility] Hematocrit 20.7 (L) 40.5 - [facility] 48.5 % [facility] MCV 87.3 82.9 - [facility] 93.1 [facility] LABORATORY MCH 29.1 27.5 - [facility] 32.1 pg [facility] MCHC 33.3 32.0 - [facility] 35.7 g/dL [facility] Platelets 166 145 - 357 [facility] x10(3)/[facility] LABORATORY RDWSD 49.0 (H) 36.0 - [facility] 45.0 [facility] LABORATORY RDWCV 15.5 (H) 11.4 - [facility] 13.8 % [facility] MPV 10.2 7.6 - 12.9 [facility] LABORATORY nRBC % Auto 0.0 % [facility] LABORATORY nRBC Abs Auto 0.000 0.000 - [facility] 0.000 [facility] x10(3)/[facility] LABORATORY Specimen Anatomical Collection Method Collection Time Receive d Time (Source) Location / / Volume Laterality Blood 02/12/2022 12:30 02/12/2022 1:03 AM EDT AM EDT Resulting Agency Comment Spec In Lab Kaitlyn Rock MD HEMATOLOGY ORDERABLES Performing Organization Address City/State/[place] [address] (ABNORMAL) Basic Metabolic Panel (non-fasting) (02/12/2022 12:30 AM EDT) athologist Signature Glucose Lvl 103 65 - 199 [facility] mg/dL [facility] Comment: Diabetes: >=200 mg/dL plus symp toms BUN 39 (H) 10 - 20 mg/dL [facility] Comment: result rechecked-EWR Creatinine 3.74 (H) 0.80 - 1.50 mg/dL [facility] LABORATORY Comment: result rechecked-EWR Sodium 127 (L) 135 - 145 mmol/L [facility] Potassium 4.4 3.5 - 5.0 mmol/L [facility] Comment: Please note: ??Patients with WBC >100,00 0 may have falsely elevated Potassium levels. ??For accurate Potassium quantif ication in these patients send serum separator tube (gold top) for subsequent determinations. ??Contact the Clinical Chemistry Laboratory if there are any qu estions. Chloride 99 98 - 107 mmol/L [facility] CO2 21 (L) 22 - 31 mmol/L [facility] Anion Gap 7 5 - 15 mmol/L [facility] LABORATORY Calcium 6.1 (Critical) [...] MD CHEMISTRY ORDERABLES Performing Organization Address City/[facility]/ZIP Code Phon e Number [place] [phone] [facility] LABORATORY Drive Phosphorus (02/12/2022 12:30 AM EDT) P athologist Signature Phosphorus 2.7 2.5 - 4.5 [facility] mg/dL [facility] Specimen Anatomical Collection Method Collection Time Receive d Time (Source) Location / / Volume Laterality Blood 02/12/2022 12:30 02/12/2022 1:03 AM EDT AM EDT Resulting Agency Comment Spec In Lab Gela Novak MD CHEMISTRY ORDERABLES Performing Organization Address City/[facility]/ZIP Code Phon e Number [place] [phone] HOSPITAL LABORATORY Drive Magnesium (02/12/2022 12:30 AM EDT) P athologist Signature Magnesium 0.79 0.69 - 1.07 [facility] mmol/L [facility] Specimen Anatomical Collection Method Collection Time Receive d Time (Source) Location / / Volume Laterality Blood 02/12/2022 12:30 02/12/2022 1:03 AM EDT AM EDT Resulting Agency Comment Spec In Lab Gela Novak MD CHEMISTRY ORDERABLES Performing Organization Address City/[facility]/ZIP [facility] Phon e Number [place] [phone]OS[address] LAB[address]ORY Drive (ABNORMAL) Albumin Level (02/12/2022 12:30 AM EDT) athologist Signature Albumin 1.3 (L) 3.2 - 5.2 [facility] g/dL [facility] Specimen Anatomical Collection Method Collection Time Receive d Time (Source) Location / / Volume Laterality Blood 02/12/2022 12:30 02/12/2022 1:03 AM EDT AM EDT Resulting Agency Comment Spec In Lab Parrish Betancourt MD CHEMISTRY ORDERABLES Performing Organization Address City/[facility]/ZIP [facility] Phon e Number [address] (ABNORMAL) Prealbumin (02/12/2022 12:30 AM EDT) athologist Signature Prealbumin 15 (L) 20 - 40 [facility] mg/dL [facility] Comment: Prealbumin levels are generally lower in the pediatric population; adult concentrations are usually attained near puberty. Specimen Anatomical Collection Method Collection Time Receive d Time (Source) Location / / Volume Laterality Blood 02/12/2022 12:30 02/12/2022 1:03 AM EDT AM EDT Resulting Agency Comment Spec In Lab Parrish Betancourt MD CHEMISTRY ORDERABLES Performing Organization Address City/[facility] [facility] Phon e Number [address] SCAN DOC: LAB (02/12/2022 [...] who have questions please contact the health career technical education teacher that requested your imaging first. ? Electronically signed by: REECE Rosenberg [facility] ([phone]), at 02/11/2022 5:54 PM Narrative 02/11/2022 5:54 [...] ho have questions please contact the health career technical education teacher that requested your imaging first. Parrish Betancourt MD IMG MRI ORDERABLES (ABNORMAL) Sodium (02/11/2022 4:09 PM EDT) P athologist Signature Sodium 129 (L) 135 - 145 [facility] mmol/L [facility] LABORATORY Specimen Anatomical Collection Method Collection Time Receive d Time (Source) Location / / Volume Laterality Blood 02/11/2022 4:09 PM 2 4:33 EDT PM EDT Resulting Agency Comment Spec In Lab Parrish Betancourt MD CHEMISTRY ORDERABLES Performing Organization Address City/State/[place] [address] (ABNORMAL) Sodium (02/11/2022 8:20 AM EDT) P athologist Signature Sodium 127 (L) 135 - 145 [facility] mmol/L [facility] LABORATORY Specimen Anatomical Collection Method Collection Time Receive d Time (Source) Location / / Volume Laterality Blood 02/11/2022 8:20 AM 2 8:39 EDT AM EDT Resulting Agency Comment Spec In Lab Parrish Betancourt MD CHEMISTRY ORDERABLES Performing Organization Address City/[facility]/ZIP [place] [address] Scan, Peripheral Blood (02/11/2022 12:37 AM EDT) [facility] Method Time Signature Plat Estimate Decreased [facility] LABORATORY RBC Morphology Abnormal [facility] LABORATORY Polychromasia Present >5/HPF [facility] LABORATORY Ovalocytes 1-5 /HPF [facility] LABORATORY Stippled RBCs Present >1/HPF [facility] LABORATORY Dohle Bodies Present [facility] LABORATORY Specimen Anatomical Collection Method Collection Time Receive d Time (Source) Location / / Volume Laterality Blood 02/11/2022 12:37 02/11/2022 AM EDT 12:47 AM EDT Resulting Agency Comment Spec In Lab Jeanette Escamilla APRN HEMATOLOGY ORDERABLES Performing Organization Address City/[facility]/ZIP Code Phon e Number [address] Green Tube HOLD (02/11/2022 12:37 AM EDT) P athologist Signature Green Hold Sample in [facility] LABORATORY Specimen Anatomical Collection Method Collection Time Receive d Time (Source) Location / / Volume Laterality Blood Venous Draw / 02/11/2022 12:37 02/11/2022 Unknown AM EDT 12:48 AM EDT Jeanette Escamilla APRN CHEMISTRY ORDERABLES Performing Organization Address City/[facility]/ZIP [place] [address] (ABNORMAL) Differential, Automated (02/11/2022 12:37 AM EDT) [facility] Method Time Signature Neutrophils % 39.1 % [facility] LABORATORY Neutr Abs (ANC) 7.07 (H) 1.70 - [facility] 6.10 [facility] x10(3)/[facility] LABORATORY Lymphocytes % 12.7 % [facility] LABORATORY Lymphocytes Abs 2.3 0.9 - 3.2 [facility] x10(3)/[facility] LABORATORY Monocytes % 11.4 % [facility] LABORATORY Monocyte Abs 2.1 (H) 0.3 - 0.9 [facility] x10(3)/[facility] LABORATORY Eosinophils % 2.9 % [facility] LABORATORY Eosinophils Abs 0.5 (H) 0.0 - 0.4 [facility] x10(3)/[facility] LABORATORY Basophils % 0.5 % [facility] LABORATORY Basophils Abs 0.1 0.0 - 0.1 [facility] x10(3)/[facility] LABORATORY Immature Gran % 33.40 % [facility] LABORATORY Comment: Immature granulocytes(IG's)percentage an d absolute count will include metamyelocytes, myelocytes, and promyelo cytes. Blood smears from CBCs yielding IG's will be scanned manually for concor dance. If this scan disagrees with the automated IG or if promyelocytes are not ed, a manual differential will be performed. Gemini Gran Abs 6.04 (H) 0.00 - 0.04 x10(3)/[facility] LABORATORY Specimen Anatomical Collection Method Collection Time Receive d Time (Source) Location / / Volume Laterality Blood 02/11/2022 12:37 02/11/2022 AM EDT 12:47 AM EDT Resulting Agency Comment Spec In Lab Jeanette Escamilla APRN HEMATOLOGY ORDERABLES Performing Organization Address City/State/[place] [address] (ABNORMAL) Hemogram (02/11/2022 12:37 AM EDT) Analysis Performed At Patho logist Time Signature WBC 18.1 (H) 4.0 - 9.5 [facility] x10(3)/[facility] LABORATORY RBC 2.44 (L) 4.58 - [facility] 5.54 [facility] x10(6)/[facility] LABORATORY Hemoglobin 7.0 (L) 13.7 - [facility] 16.5 g/dL [facility] LABORATORY Hematocrit 21.0 (L) 40.5 - [facility] 48.5 % [facility] LABORATORY MCV 86.1 82.9 - [facility] 93.1 [facility] LABORATORY MCH 28.7 27.5 - [facility] 32.1 pg [facility] LABORATORY MCHC 33.3 32.0 - [facility] 35.7 g/dL [facility] LABORATORY Platelets 140 (L) 145 - 357 [facility] x10(3)/[facility] LABORATORY RDWSD 50.0 (H) 36.0 - [facility] 45.0 [facility] LABORATORY RDWCV 15.9 (H) 11.4 - [facility] 13.8 % [facility] LABORATORY MPV 10.0 7.6 - 12.9 [facility] LABORATORY nRBC % Auto 0.0 % [facility] LABORATORY nRBC Abs Auto 0.000 0.000 - [facility] 0.000 [facility] x10(3)/[facility] LABORATORY Specimen Anatomical Collection Method Collection Time Receive d Time (Source) Location / / Volume Laterality Blood 02/11/2022 12:37 02/11/2022 AM EDT 12:47 AM EDT Resulting Agency Comment Spec In Lab Jeanette Escamilla APRN HEMATOLOGY ORDERABLES Performing Organization Address City/State/[place] [address] (ABNORMAL) Basic Metabolic Panel (non-fasting) (02/11/2022 12:37 AM EDT) P athologist Signature Glucose Lvl 125 65 - 199 [facility] mg/dL [facility] LABORATORY Comment: Diabetes: >=200 mg/dL plus symp toms BUN 23 (H) 10 - 20 mg/dL [facility] LABORATORY Creatinine 2.42 (H) 0.80 - 1.50 mg/dL [facility] LABORATORY Sodium 128 (L) 135 - 145 mmol/L [facility] LABORATORY Potassium 3.8 3.5 - 5.0 mmol/L [facility] LABORATORY Comment: Please note: ??Patients with WBC >100,00 0 may have falsely elevated Potassium levels. ??For accurate Potassium quantif ication in these patients send serum separator tube (gold top) for subsequent determinations. ??Contact the Clinical Chemistry Laboratory if there are any qu estions. Chloride 96 (L) 98 - 107 mmol/L [facility] LABORATORY CO2 26 22 - 31 mmol/L [facility] LABORATORY Anion Gap 6 5 - 15 mmol/L [facility] LABORATORY Calcium 6.4 (Critical) 8.5 - 10.5 mg/dL [facility] LABORATORY Comment: Called by: , Read back by: sakshi abreu, Date/Time:02/11/22 01:43.l Estimated GFR 36 (L) >=60 mL/min/1.73 m?? [facility] LABORATORY Comment: This patient's estimated [...] Organization Address City/State/[place] [address] (ABNORMAL) Phosphorus (02/11/2022 12:37 AM EDT) P athologist Signature Phosphorus 2.1 (L) 2.5 - 4.5 [facility] mg/dL [facility] LABORATORY Specimen Anatomical Collection Method Collection Time Receive d Time (Source) Location / / Volume Laterality Blood 02/11/2022 12:37 02/11/2022 AM EDT 12:47 AM EDT Resulting Agency Comment Spec In Lab Gela Novak MD CHEMISTRY ORDERABLES Performing Organization Address City/State/ZIP [place] [address] Magnesium (02/11/2022 12:37 AM EDT) athologist Signature Magnesium 0.75 0.69 - 1.07 [facility] LABORATORY Specimen Anatomical Collection Method Collection Time Receive d Time (Source) Location / / Volume Laterality Blood 02/11/2022 12:37 02/11/2022 AM EDT 12:47 AM EDT Resulting Agency Comment Spec In Lab Gela Novak MD CHEMISTRY ORDERABLES Performing Organization Address City/State/ZIP [place] [address] (ABNORMAL) Sodium (02/10/2022 4:47 PM EDT) athologist Signature Sodium 132 (L) 135 - 145 [facility] mmol/L [facility] LABORATORY Specimen Anatomical Collection Method Collection Time Receive d Time (Source) Location / / Volume Laterality Blood 02/10/2022 4:47 PM 5:02 EDT PM EDT Resulting Agency Comment Spec In Lab Parrish Betancourt MD CHEMISTRY ORDERABLES Performing Organization Address City/State/ZIP [place] [address] (ABNORMAL) Sodium (02/10/2022 9:05 AM EDT) athologist Signature Sodium 129 (L) 135 - 145 [facility] mmol/L [facility] LABORATORY Specimen Anatomical Collection Method Collection Time Receive d Time (Source) Location / / Volume Laterality Blood Venous Draw / 02/10/2022 9:05 AM 02/11/20 9:36 Unknown EDT AM EDT Resulting Agency Comment Spec In Lab Kaitlyn Rock MD CHEMISTRY ORDERABLES Performing Organization Address City/[facility]/ZIP Code Phon e Number [address] Scan, Peripheral Blood (02/10/2022 12:00 AM EDT) Patholo gist Method Time Signature Plat Estimate Decreased [facility] LABORATORY RBC Morphology Abnormal [facility] LABORATORY Polychromasia Present >5/HPF [facility] LABORATORY Ovalocytes 1-5 /HPF [facility] LABORATORY Lawrence Cells 1-5 /HPF [facility] LABORATORY Stippled RBCs Present >1/HPF [facility] LABORATORY Dohle Bodies Present [facility] Giant Platelets Less than 1 /HPF [facility] LABORATORY Specimen (Source) Anatomical Collection Method Collection Time Re ceived Time Location / / Volume Laterality Blood 02/10/2022 02/10/2022 12:4 0 AM EDT Resulting Agency Comment Spec In Lab Kaitlyn Rock MD HEMATOLOGY ORDERABLES Performing Organization Address City/State/[place] [address] (ABNORMAL) Differential, Automated (02/10/2022 12:00 AM EDT) [facility] gist Method Time Signature Neutrophils % 52.5 % [facility] LABORATORY Neutr Abs (ANC) 8.47 (H) 1.70 - [facility] 6.10 [facility] x10(3)/[facility] LABORATORY Lymphocytes % 12.2 % [facility] LABORATORY Lymphocytes Abs 2.0 0.9 - 3.2 [facility] x10(3)/[facility] LABORATORY Monocytes % 17.3 % [facility] LABORATORY Monocyte Abs 2.8 (H) 0.3 - 0.9 [facility] x10(3)[facility] LABORATORY Eosinophils % 2.5 % [facility] LABORATORY Eosinophils Abs 0.4 0.0 - 0.4 [facility] x10(3)/[facility] LABORATORY Basophils % 0.4 % [facility] LABORATORY Basophils Abs 0.1 0.0 - 0.1 [facility] x10(3)/[facility] LABORATORY Immature Gran % 15.10 % [facility] LABORATORY Comment: Immature granulocytes(IG's)percentage an d absolute count will include metamyelocytes, myelocytes, and promyelo cytes. Blood smears from CBCs yielding IG's will be scanned manually for concor dance. If this scan disagrees with the automated IG or if promyelocytes are not ed, a manual differential will be performed. Gemini Gran Abs 2.44 (H) 0.00 - 0.04 x10(3)/[facility] LABORATORY Specimen (Source) Anatomical Collection Method Collection Time Re ceived Time Location / / Volume Laterality Blood 02/10/2022 02/10/2022 12:4 0 AM EDT Resulting Agency Comment Spec In Lab Kaitlyn Rock MD HEMATOLOGY ORDERABLES Performing Organization Address City/State/[place] [address] (ABNORMAL) Hemogram (02/10/2022 12:00 AM EDT) Analysis Performed At Patho logist Time Signature WBC 16.1 (H) 4.0 - 9.5 [facility] x[facility](3[facility] LABORATORY RBC 2.96 (L) 4.58 - [facility] 5.54 [facility] x10(6)/[facility] LABORATORY Hemoglobin 8.6 (L) 13.7 - [facility] 16.5 g/dL [facility] LABORATORY Hematocrit 25.2 (L) 40.5 - [facility] 48.5 % [facility] LABORATORY MCV 85.1 82.9 - [facility] 93.1 [facility] LABORATORY MCH 29.1 27.5 - [facility] 32.1 pg [facility] LABORATORY MCHC 34.1 32.0 - [facility] 35.7 g/dL [facility] LABORATORY Platelets 121 (L) 145 - 357 [facility] x[facility](3[facility] LABORATORY RDWSD 50.4 (H) 36.0 - [facility] Differential 45.0 [facility] LABORATORY RDWCV 16.4 (H) 11.4 - [facility] 13.8 % [facility] LABORATORY MPV 10.6 7.6 - 12.9 [facility] LABORATORY nRBC % Auto 0.0 % [facility] LABORATORY nRBC Abs Auto 0.000 0.000 - [facility] Differential 0.000 [facility] x10(3)/[facility] LABORATORY Specimen (Source) Anatomical Collection Method Collection Time Re ceived Time Location / / Volume Laterality Blood 02/10/2022 02/10/2022 12:4 0 AM EDT Resulting Agency Comment Spec In Lab Kaitlyn Rock MD HEMATOLOGY ORDERABLES Performing Organization Address City/[facility]/ZIP Code Phon e Number [address] Phosphorus (02/10/2022 12:00 AM EDT) P athologist Signature Phosphorus 3.1 2.5 - 4.5 [facility]dL [facility] LABORATORY Specimen (Source) Anatomical Collection Method Collection Time Re ceived Time Location / / Volume Laterality Blood 02/10/2022 02/10/2022 12:4 0 AM EDT Resulting Agency Comment Spec In Lab Gela Novak MD CHEMISTRY ORDERABLES Performing Organization Address City/[facility]/ZIP Code Phon e Number [address] Magnesium (02/10/2022 12:00 AM EDT) P athologist Signature Magnesium 0.87 0.69 - 1.07 [facility] mmol/L [facility] LABORATORY Specimen (Source) Anatomical Collection Method Collection Time Re ceived Time Location / / Volume Laterality Blood 02/10/2022 02/10/2022 12:4 0 AM EDT Resulting Agency Comment Spec In Lab Gela Novak MD CHEMISTRY ORDERABLES Performing Organization Address City/[facility]/ZIP [place] [address] (ABNORMAL) Basic Metabolic Panel (non-fasting) (02/10/2022 12:00 AM EDT) P athologist Signature Glucose Lvl 164 65 - 199 [facility] mg/dL [facility] LABORATORY Comment: Diabetes: >=200 mg/dL plus symp toms BUN 21 (H) 10 - 20 mg/dL [facility] LABORATORY Creatinine 1.89 (H) 0.80 - 1.50 mg/dL [facility] LABORATORY Sodium 130 (L) 135 - 145 mmol/L [facility] LABORATORY Potassium 3.9 3.5 - 5.0 mmol/L [facility] LABORATORY Comment: Please note: ??Patients with WBC >100,00 0 may have falsely elevated Potassium levels. ??For accurate Potassium quantif ication in these patients send serum separator tube (gold top) for subsequent determinations. ??Contact the Clinical Chemistry Laboratory if there are any qu estions. Chloride 96 (L) 98 - 107 mmol/L [facility] LABORATORY CO2 22 22 - 31 mmol/L [facility] LABORATORY Anion Gap 12 5 - 15 mmol/L [facility] LABORATORY Calcium 7.2 (L) 8.5 - 10.5 mg/dL [facility] LABORATORY Estimated GFR 48 (L) >=60 mL/min/1.73 m?? [facility] LABORATORY Comment: This patient's estimated [...] Organization Address City/State/[place] [address] (ABNORMAL) Blood Gas Arterial ([facility]) (02/09/2022 5:43 PM EDT) Analysis Performed At Patho logist Time Signature pH Art 7.46 (H) 7.35 - [facility] 7.45 [facility] LABORATORY pCO2 Art 35 35 - 45 [facility] LABORATORY pO2 Art 73 (L) 85 - 104 [facility] LABORATORY HCO3 Art 24.8 20.0 - [facility] 26.0 [facility] mmol/L [facility] LABORATORY BE Art 1.1 -3.0 - 3.0 [facility] mmol/L [facility] LABORATORY Hgb Blood Gas 9.2 (L) 13.7 - [facility] 16.5 g/dL [facility] LABORATORY O2HB Art 94.9 94.0 - [facility] 97.0 % [facility] LABORATORY COHB Art 0.5 % [facility] LABORATORY Comment: Nonsmokers: ??0.5-1.5% COHB Smokers: ??Variable, but usually less th an 10% Toxic: 20 - 30% COHB Lethal: ??Greater than 60% COHB METHB Art 0.3 <=1.5 % [facility] LABORATORY Na Whole Blood 126 (L) 135 - 145 mmol/L [facility] LABORATORY K Whole Blood 4.2 3.5 - 5.0 mmol/L [facility] LABORATORY Comment: Please note: ??Patients with WBC >100,00 0 may have falsely elevated Potassium levels. ??Contact the Clinical Chemistry Laboratory if there are any questions. ICa Whole Blood 1.12 (L) 1.15 - 1.33 mmol/L [facility] LABORATORY Comment: Note: ??Total bilirubin higher than 20 m g/dL may lead to falsely low ionized calcium. CL Whole Blood 100 98 - 107 mmol/L [facility] LABORATORY Gluc Whole Bld 97 65 - 199 mg/dL [facility] LABORATORY Comment: Diabetes: >=200 mg/dL plus [...] Organization Address City/State/[place] [address] Phosphorus (02/09/2022 5:35 PM EDT) athologist Signature Phosphorus 3.2 2.5 - 4.5 [facility] mg/dL [facility] LABORATORY Specimen Anatomical Collection Method Collection Time Receive d Time (Source) Location / / Volume Laterality Blood 02/09/2022 5:35 PM 2 5:44 EDT PM EDT Resulting Agency Comment Spec In Lab Parrish Betancourt MD CHEMISTRY ORDERABLES Performing Organization Address City/[facility]/[place] [address] (ABNORMAL) Electrolytes panel (02/09/2022 5:35 PM EDT) athologist Signature Sodium 132 (L) 135 - 145 [facility] mmol/L [facility] LABORATORY Potassium 4.3 3.5 - 5.0 [facility] mmol/L [facility] LABORATORY Comment: Please note: ??Patients with WBC >100,00 0 may have falsely elevated Potassium levels. ??For accurate Potassium quantif ication in these patients send serum separator tube (gold top) for subsequent determinations. ??Contact the Clinical Chemistry Laboratory if there are any qu estions. Chloride 100 98 - 107 mmol/L [facility] LABORATORY CO2 21 (L) 22 - 31 mmol/L [facility] LABORATORY Anion Gap 11 5 - 15 mmol/L [facility] LABORATORY Specimen Anatomical Collection Method Collection Time Receive d Time (Source) Location / / Volume Laterality Blood 02/09/2022 5:35 PM 2 5:44 EDT PM EDT Resulting Agency Comment Spec In Lab Parrish Betancourt MD CHEMISTRY ORDERABLES Performing Organization Address City/State/[place] [address] (ABNORMAL) Sodium (02/09/2022 5:35 PM EDT) athologist Signature Sodium 132 (L) 135 - 145 [facility] mmol/L [facility] LABOR[facility]ORY Specimen Anatomical Collection Method Collection Time Receive d Time (Source) Location / / Volume Laterality Blood 02/09/2022 5:35 PM 2 5:44 EDT PM EDT Resulting Agency Comment Spec In Lab Parrish Betancourt MD CHEMISTRY ORDERABLES Performing Organization Address City/[facility]/ZIP [place] [address] Anaerobic Culture (02/09/2022 4:26 PM EDT) [facility] Method Time Signature Anaerobic No anaerobic [facility] Culture organisms [facility] LABORATORY Specimen Anatomical Collection Method Collection Time Receive d Time (Source) Location / / Volume Laterality Thigh 02/09/2022 4:26 PM 5:23 EDT PM EDT Comment: Left thigh Resulting Agency Comment Spec In Lab Jeanette Chatterjee MD MICROBIOLOGY - GENERAL ORDER JT Performing Organization Address City/[facility] Phon e Number [address] (ABNORMAL) Tissue culture (02/09/2022 4:26 PM EDT) Component Value Ref Test Analysis Performed At [facility] Range Method Time Signature Tissue Few Pseudomonas aeruginosa MAR Y Culture Few Serratia marcescens [facility] Susceptibilities previously reported [facility] LAB[facility] Gram Stain Many Neutrophils seen [facility] Moderate Gram Negative Rods seen [place] Results called to and read back by Lilibeth Dial RN [facility] 02/09/22 18:20:09 [facility] ( LABORATORY Organism Pseudomonas [facility] aeruginosa (A) [facility] LABORATORY Organism Serratia marcescens [facility] (A) [facility] LABORATORY Organism Gram Negative Rods [facility] (A) [facility] LABORATORY Specimen Anatomical Collection Method Collection Time Receive d Time (Source) Location / / Volume Laterality Thigh 02/09/2022 4:26 PM 5:23 EDT PM EDT Comment: Left thigh Resulting Agency Comment Spec In Lab Jeanette Chatterjee MD MICROBIOLOGY - GENERAL ORDER JT Performing Organization Address City/[facility]/ZIP [place] [address] (ABNORMAL) Sodium (02/09/2022 12:29 PM EDT) athologist Signature Sodium 132 (L) 135 - 145 [facility] mmol/L [facility] LABORATORY Specimen Anatomical Collection Method Collection Time Receive d Time (Source) Location / / Volume Laterality Blood 02/09/2022 12:29 02/09/2022 PM EDT 12:29 PM EDT Resulting Agency Comment Spec In Lab Parrish Betancourt MD CHEMISTRY ORDERABLES Performing Organization Address City/State/[place] [address] (ABNORMAL) Blood Gas Arterial ([facility]) (02/09/2022 12:20 PM EDT) Analysis Performed At Patho logist Time Signature pH Art 7.47 (H) 7.35 - [facility] 7.45 [facility] LABORATORY pCO2 Art 33 (L) 35 - 45 [facility] mmHg [facility] LABORATORY pO2 Art 105 (H) 85 - 104 [facility] LABORATORY HCO3 Art 23.6 20.0 - [facility] 26.0 [facility] mmol/L [facility] BE Art -0.1 -3.0 - 3.0 [facility] mmol/L [facility] Hgb Blood Gas 9.6 (L) 13.7 - [facility] 16.5 g/dL [facility] O2HB Art 97.2 (H) 94.0 - [facility] 97.0 % [facility] COHB Art 0.8 % [facility] Comment: Nonsmokers: ??0.5-1.5% COHB Smokers: ??Variable, but usually less th an 10% Toxic: 20 - 30% COHB Lethal: ??Greater than 60% COHB METHB Art 0.3 <=1.5 % [facility] Na Whole Blood 126 (L) 135 - 145 mmol/L [facility] K Whole Blood 4.2 3.5 - 5.0 mmol/L [facility] Comment: Please note: ??Patients with WBC >100,00 0 may have falsely elevated Potassium levels. ??Contact the Clinical Chemistry Laboratory if there are any questions. ICa Whole Blood 1.16 1.15 - 1.33 mmol/L [facility] Comment: Note: ??Total bilirubin higher than 20 m g/dL may lead to falsely low ionized calcium. CL Whole Blood 99 98 - 107 mmol/L [facility] Gluc Whole Bld 97 65 - 199 mg/dL [facility] Comment: Diabetes: >=200 mg/dL plus symp toms. Lactate WB 1.1 0.5 - 2.2 mmol/L [facility] FIO2 Art 21 % [facility] PF Ratio Art 500 [facility] Temp Art 36.6 Celsius [facility] Specimen Anatomical Collection Method Collection Time Receive d Time (Source) Location / / Volume Laterality Blood Arterial Draw / 02/09/2022 12:20 02/10/20 22 Unknown PM EDT 12:27 PM EDT Resulting Agency Comment Spec In Lab Kaitlyn Rock MD CHEMISTRY ORDERABLES Performing Organization Address City/[facility]/ZIP [facility] Phon e Number [address] Phosphorus (02/09/2022 10:08 AM EDT) P athologist Signature Phosphorus 3.1 2.5 - 4.5 [facility]/dL [facility] Specimen Anatomical Collection Method Collection Time Receive d Time (Source) Location / / Volume Laterality Blood 02/09/2022 10:08 02/09/2022 AM EDT 10:34 AM EDT Resulting Agency Comment Spec In Lab Parrish Betancourt MD CHEMISTRY ORDERABLES Performing Organization Address City/[facility]/ZIP [place] [address] Phosphorus (02/09/2022 6:25 AM EDT) P athologist Signature Phosphorus 2.6 2.5 - 4.5 [facility] mg/dL [facility] Specimen Anatomical Collection Method Collection Time Receive d Time (Source) Location / / Volume Laterality Blood 02/09/2022 6:25 AM 6:48 EDT AM EDT Resulting Agency Comment Spec In Lab Parrish Betancourt MD CHEMISTRY ORDERABLES Performing Organization Address City/[facility]/ZIP Code Phon e Number [address] (ABNORMAL) Sodium (02/09/2022 6:25 AM EDT) P athologist Signature Sodium 130 (L) 135 - 145 [facility] mmol/L [facility] Specimen Anatomical Collection Method Collection Time Receive d Time (Source) Location / / Volume Laterality Blood 02/09/2022 6:25 AM 2 6:48 EDT AM EDT Resulting Agency Comment Spec In Lab Parrish Betancourt MD CHEMISTRY ORDERABLES Performing Organization Address City/[facility]/ZIP Code Phon e Number [address] Transfuse RBC (02/09/2022 5:45 AM EDT) Parrish Betancourt MD NURSING TREATMENT ORDERABLES - BLOOD ADMIN Transfuse RBC (02/09/2022 5:45 AM EDT) Parrish Betancourt MD NURSING TREATMENT ORDERABLES - BLOOD ADMIN Type and Screen Validity (02/09/2022 2:30 AM EDT) [facility] Method Time Signature T&S only valid [facility] at [facility] Comment: This Type and Screen result is only valid at the [facility] Specimen Anatomical Collection Method Collection Time Receive d Time (Source) Location / / Volume Laterality Blood 02/09/2022 2:30 AM 2 2:47 EDT AM EDT Resulting Agency Comment Spec In Lab Thomas Daniel MD BLOOD BANK ORDERABLES Performing Organization Address City/[facility]/ZIP Code Phon e Number [address] ABORH Recheck Status (02/09/2022 2:30 AM EDT) [facility] [email or web address] Method Time Signature ABORH Type Completed [facility] LABORATORY Specimen Anatomical Collection Method Collection Time Receive d Time (Source) Location / / Volume Laterality Blood 02/09/2022 2:30 AM 2 2:47 EDT AM EDT Resulting Agency Comment Spec In Lab Thomas Daniel MD BLOOD BANK ORDERABLES Performing Organization Address City/[facility]/ZIP [place] [address] Antibody screen (02/09/2022 2:30 AM EDT) Patholo gist Method Time Signature Ab Screen Negative [facility] LABORATORY Expires at 02/12/2022 [facility] MAND[facility] [id number] on: [facility] Specimen Anatomical Collection Method Collection Time Receive d Time (Source) Location / / Volume Laterality Blood 02/09/2022 2:30 AM 2 2:47 EDT AM EDT Resulting Agency Comment Spec In Lab Thomas Daniel MD BLOOD BANK ORDERABLES Performing Organization Address City/State/ZIP Code Phon e Number [address] ABO/Rh Typing (02/09/2022 2:30 AM EDT) P athologist Signature ABORh Type A Pos [facility] Specimen Anatomical Collection Method Collection Time Receive d Time (Source) Location / / Volume Laterality Blood 02/09/2022 2:30 AM 2 2:47 EDT AM EDT Resulting Agency Comment Spec In Lab Thomas Daniel MD BLOOD BANK ORDERABLES Performing Organization Address City/State/ZIP Code Phon e Number [address] Prepare RBC (02/09/2022 2:20 AM EDT) P athologist Signature Dispensed? Yes [facility] Specimen Anatomical Collection Method Collection Time Receive d Time (Source) Location / / Volume Laterality Blood 02/09/2022 2:20 AM 2 2:21 EDT AM EDT Parrish Betancourt MD BLOOD BANK ORDERABLES Performing Organization Address City/State/ZIP [place] [address] (ABNORMAL) BLOOD GAS 2 ARTERIAL (02/09/2022 1:02 AM EDT) Analysis Performed At Patho logist Time Signature pH Art 7.49 (H) 7.35 - [facility] 7.45 [facility] pCO2 Art 30 (L) 35 - 45 [facility] LABORATORY pO2 Art 92 85 - 104 [facility] LABORATORY HCO3 Art 22.5 20.0 - [facility] 26.0 [facility] mmol/L [facility] BE Art -0.9 -3.0 - 3.0 [facility] mmol/L [facility] Hgb Blood Gas 8.1 (L) 13.7 - [facility] 16.5 g/dL [facility] O2HB Art 95.1 94.0 - [facility] 97.0 % [facility] COHB Art 0.3 % [facility] Comment: Nonsmokers: 0.5-1.5% COHB Smokers: Variable, but usually less than 10% Toxic: 20-30% COHB Lethal: Greater than 60% COHB METHB Art 1.0 <=1.5 % [facility] Na Whole Blood 122 (L) 135 - 145 mmol/L [facility] K Whole Blood 3.9 3.5 - 5.0 mmol/L [facility] Comment: Please note: Patients with WBC >100,000 may have falsely elevated Potassium levels. Contact the Clinical Chemistry L aboratory if there are any questions. ICa Whole Blood 1.18 1.15 - 1.33 mmol/L [facility] Comment: Note: ??Total bilirubin higher than 20 m g/dL may lead to falsely low ionized calcium. CL Whole Blood 98 98 - 107 mmol/L [facility] Gluc Whole Bld 125 65 - 199 mg/dL [facility] Comment: Diabetes: >=200 mg/dL plus symp toms. Lactate WB 2.2 0.5 - 2.2 mmol/L [facility] Specimen Anatomical Collection Method Collection Time Receive d Time (Source) Location / / Volume Laterality Blood 02/09/2022 1:02 AM 2 1:02 EDT AM EDT Parrish Betancourt MD CHEMISTRY ORDERABLES Performing Organization Address City/State/[place] [address] Scan, Peripheral Blood (02/09/2022 12:55 AM EDT) [facility] Method Time Signature Plat Estimate Decreased [facility] RBC Morphology Abnormal [facility] Polychromasia Present >5/HPF [facility] Ovalocytes 1-5 /HPF [facility] Lawrence Cells 1-5 /HPF [facility] Stippled RBCs Present >1/HPF [facility] Pappenheimer Bdy Present >1/HPF [facility] Dohle Bodies Present [facility] Giant Platelets Less than 1 /HPF [facility] Specimen Anatomical Collection Method Collection Time Receive d Time (Source) Location / / Volume Laterality Blood 02/09/2022 12:55 02/09/2022 1:07 AM EDT AM EDT Resulting Agency Comment Spec In Lab Kaitlyn Rock MD HEMATOLOGY ORDERABLES Performing Organization Address City/State/[place] [address] (ABNORMAL) Differential, Automated (02/09/2022 12:55 AM EDT) [facility] [email or web address] Method Time Signature Neutrophils % 57.4 % [facility] Neutr Abs (ANC) 7.26 (H) 1.70 - [facility] 6.10 [facility] x10(3)/[facility] LABORATORY Lymphocytes % 10.1 % [facility] Lymphocytes Abs 1.3 0.9 - 3.2 [facility] x10(3)/[facility] LABORATORY Monocytes % 17.7 % [facility] Monocyte Abs 2.2 (H) 0.3 - 0.9 [facility] x10(3)/[facility] LABORATORY Eosinophils % 1.3 % [facility] Eosinophils Abs 0.2 0.0 - 0.4 [facility] x10(3)/[facility] LABORATORY Basophils % 0.4 % [facility] Basophils Abs 0.0 0.0 - 0.1 [facility] x10(3)/[facility] LABORATORY Immature Gran % 13.10 % [facility] Comment: Immature granulocytes(IG's)percentage an d absolute count will include metamyelocytes, myelocytes, and promyelo cytes. Blood smears from CBCs yielding IG's will be scanned manually for concor dance. If this scan disagrees with the automated IG or if promyelocytes are not ed, a manual differential will be performed. Gemini Gran Abs 1.65 (H) 0.00 - 0.04 x10(3)/[facility] LABORATORY Specimen Anatomical Collection Method Collection Time Receive d Time (Source) Location / / Volume Laterality Blood 02/09/2022 12:55 02/09/2022 1:07 AM EDT AM EDT Resulting Agency Comment Spec In Lab Kaitlyn Rock MD HEMATOLOGY ORDERABLES Performing Organization Address City/State/ZIP Code Phon e Number [place] [id number] HOSPITAL LABORATORY Drive (ABNORMAL) Hemogram (02/09/2022 12:55 AM EDT) [facility] gist Method Time Signature WBC 12.6 (H) 4.0 - 9.5 [facility] x[facility](3[facility] LABORATORY RBC 2.46 (L) 4.58 - [facility] 5.54 [facility] x10(6)/[facility] LABORATORY Hemoglobin 7.1 (L) 13.7 - [facility] 16.5 g/dL [facility] Hematocrit 20.7 (L) 40.5 - [facility] 48.5 % [facility] MCV 84.1 82.9 - [facility] 93.1 [facility] LABORATORY MCH 28.9 27.5 - [facility] 32.1 pg [facility] MCHC 34.3 32.0 - [facility] 35.7 g/dL [facility] Platelets 97 (L) 145 - 357 [facility] x[facility](3[facility] LABORATORY RDWSD 49.4 (H) 36.0 - [facility] 45.0 [facility] LABORATORY RDWCV 17.8 (H) 11.4 - [facility] 13.8 % [facility] MPV 9.8 7.6 - 12.9 [facility] LABORATORY nRBC % Auto 0.2 % [facility] nRBC Abs Auto 0.020 (H) 0.000 - [facility] 0.000 [facility] x10(3)/[facility] LABORATORY Specimen Anatomical Collection Method Collection Time Receive d Time (Source) Location / / Volume Laterality Blood 02/09/2022 12:55 02/09/2022 1:07 AM EDT AM EDT Resulting Agency Comment Spec In Lab Kaitlyn Rock MD HEMATOLOGY ORDERABLES Performing Organization Address City/State/[place] [address] (ABNORMAL) Basic Metabolic Panel (non-fasting) (02/09/2022 12:55 AM EDT) P athologist Signature Glucose Lvl 128 65 - 199 [facility] mg/dL [facility] Comment: Diabetes: >=200 mg/dL plus symp toms BUN 26 (H) 10 - 20 mg/dL [facility] Creatinine 2.46 (H) 0.80 - 1.50 mg/dL [facility] LAB[facility]ORY Sodium 126 (L) 135 - 145 mmol/L [facility] Potassium 4.2 3.5 - 5.0 mmol/L [facility] Comment: Please note: ??Patients with WBC >100,00 0 may have falsely elevated Potassium levels. ??For accurate Potassium quantif ication in these patients send serum separator tube (gold top) for subsequent determinations. ??Contact the Clinical Chemistry Laboratory if there are any qu estions. Chloride 95 (L) 98 - 107 mmol/L [facility] CO2 22 22 - 31 mmol/L [facility] Anion Gap 9 5 - 15 mmol/L [facility] Calcium 7.7 (L) 8.5 - 10.5 mg/dL [facility] Estimated GFR 35 (L) >=60 mL/min/1.73 m?? [facility] Comment: This patient's estimated [...] MD CHEMISTRY ORDERABLES Performing Organization Address City/[facility]/ZIP Code Phon e Number [address] (ABNORMAL) Phosphorus (02/09/2022 12:55 AM EDT) P athologist Signature Phosphorus 2.3 (L) 2.5 - 4.5 [facility] mg/dL [facility] Specimen Anatomical Collection Method Collection Time Receive d Time (Source) Location / / Volume Laterality Blood 02/09/2022 12:55 02/09/2022 1:07 AM EDT AM EDT Resulting Agency Comment Spec In Lab Gela Novak MD CHEMISTRY ORDERABLES Performing Organization Address City/[facility]/ZIP [place] [address] Magnesium (02/09/2022 12:55 AM EDT) P athologist Signature Magnesium 0.94 0.69 - 1.07 [facility] mmol/L [facility] Specimen Anatomical Collection Method Collection Time Receive d Time (Source) Location / / Volume Laterality Blood 02/09/2022 12:55 02/09/2022 1:07 AM EDT AM EDT Resulting Agency Comment Spec In Lab Gela Novak MD CHEMISTRY ORDERABLES Performing Organization Address City/[facility]/ZIP [place] [address] Scan, Peripheral Blood (02/08/2022 6:00 PM EDT) [facility] Method Time Signature Plat Estimate Decreased [facility] RBC Morphology Abnormal [facility] Macrocytes 1-5 /HPF [facility] Microcytes 1-5 /HPF [facility] Polychromasia Present >5/HPF [facility] Ovalocytes 1-5 /HPF [facility] Angel Cells 1-5 /HPF [facility] Stippled RBCs Present >1/HPF [facility] Pappenheimer Bdy Present >1/HPF [facility] Dohle Bodies Present [facility] Giant Platelets Less than 1 /HPF [facility] Specimen Anatomical Collection Method Collection Time Receive d Time (Source) Location / / Volume Laterality Blood 02/08/2022 6:00 PM 6:21 EDT PM EDT Resulting Agency Comment Spec In Lab Rogers Solano APRN HEMATOLOGY ORDERABLES Performing Organization Address City/State/ZIP [place] [address] (ABNORMAL) Differential, Automated (02/08/2022 6:00 PM EDT) [facility] Method Time Signature Neutrophils % 64.6 % [facility] Neutr Abs (ANC) 7.81 (H) 1.70 - [facility] 6.10 [facility] x10(3)/[facility] L LABORATORY Lymphocytes % 7.2 % [facility] Lymphocytes Abs 0.9 0.9 - 3.2 [facility] x10(3)/[facility] LABORATORY Monocytes % 14.2 % [facility] Monocyte Abs 1.7 (H) 0.3 - 0.9 [facility] x10(3)/[facility] LABORATORY Eosinophils % 1.3 % [facility] Eosinophils Abs 0.2 0.0 - 0.4 [facility] x10(3)/[facility] LABORATORY Basophils % 0.5 % [facility] Basophils Abs 0.1 0.0 - 0.1 [facility] x10(3)/[facility] LABORATORY Immature Gran % 12.20 % [facility] Comment: Immature granulocytes(IG's)percentage an d absolute count will include metamyelocytes, myelocytes, and promyelo cytes. Blood smears from CBCs yielding IG's will be scanned manually for concor dance. If this scan disagrees with the automated IG or if promyelocytes are not ed, a manual differential will be performed. Gemini Gran Abs 1.48 (H) 0.00 - 0.04 x10(3)/[facility] LABORATORY Specimen Anatomical Collection Method Collection Time Receive d Time (Source) Location / / Volume Laterality Blood 02/08/2022 6:00 PM 6:21 EDT PM EDT Resulting Agency Comment Spec In Lab Rogers Solano APRN HEMATOLOGY ORDERABLES Performing Organization Address City/State/ZIP [place] [address] (ABNORMAL) Hemogram (02/08/2022 6:00 PM EDT) [facility] gist Method Time Signature WBC 12.1 (H) 4.0 - 9.5 [facility] x10(3)/[facility] LABORATORY RBC 2.57 (L) 4.58 - [facility] 5.54 [facility] x10(6)/[facility] LABORATORY Hemoglobin 7.5 (L) 13.7 - [facility] 16.5 g/dL [facility] Hematocrit 21.6 (L) 40.5 - [facility] 48.5 % [facility] MCV 84.0 82.9 - [facility] 93.1 [facility] LABORATORY MCH 29.2 27.5 - [facility] 32.1 pg [facility] MCHC 34.7 32.0 - [facility] 35.7 g/dL [facility] Platelets 80 (L) 145 - 357 [facility] x10(3)/[facility] LABORATORY RDWSD 48.9 (H) 36.0 - [facility] 45.0 [facility] LABORATORY RDWCV 17.9 (H) 11.4 - [facility] 13.8 % [facility] MPV 10.1 7.6 - 12.9 [facility] LABORATORY nRBC % Auto 0.2 % [facility] nRBC Abs Auto 0.020 (H) 0.000 - [facility] 0.000 [facility] x10(3)/[facility] LABORATORY Specimen Anatomical Collection Method Collection Time Receive d Time (Source) Location / / Volume Laterality Blood 02/08/2022 6:00 PM 6:21 EDT PM EDT Resulting Agency Comment Spec In Lab Rogers Solano APRN HEMATOLOGY ORDERABLES Performing Organization Address City/State/[place] [address] (ABNORMAL) Blood Gas Arterial (NL[facility]) (02/08/2022 6:00 PM EDT) Analysis Performed At Patho logist Time Signature pH Art 7.46 (H) 7.35 - [facility] 7.45 [facility] pCO2 Art 32 (L) 35 - 45 [facility] LABORATORY pO2 Art 89 85 - 104 [facility] LABORATORY HCO3 Art 22.4 20.0 - [facility] 26.0 [facility] mmol/[facility] LABORATORY BE Art -1.4 -3.0 - 3.0 [facility] mmol/L [facility] Hgb Blood Gas 8.0 (L) 13.7 - [facility] 16.5 g/dL [facility] O2HB Art 95.8 94.0 - [facility] 97.0 % [facility] COHB Art 0.8 % [facility] Comment: Nonsmokers: ??0.5-1.5% COHB Smokers: ??Variable, but usually less th an 10% Toxic: 20 - 30% COHB Lethal: ??Greater than 60% COHB METHB Art 0.0 <=1.5 % [facility] Na Whole Blood 124 (L) 135 - 145 mmol/L [facility] K Whole Blood 4.7 3.5 - 5.0 mmol/L [facility] Comment: Please note: ??Patients with WBC >100,00 0 may have falsely elevated Potassium levels. ??Contact the Clinical Chemistry Laboratory if there are any questions. ICa Whole Blood 1.21 1.15 - 1.33 mmol/L [facility] Comment: Note: ??Total bilirubin higher than 20 m g/dL may lead to falsely low ionized calcium. CL Whole Blood 99 98 - 107 mmol/L [facility] Gluc Whole Bld 84 65 - 199 mg/dL [facility] Comment: Diabetes: >=200 mg/dL plus [...] Organization Address City/State/ZIP [place] [address] (ABNORMAL) Sodium (02/08/2022 6:00 PM EDT) athologist Signature Sodium 129 (L) 135 - 145 [facility] mmol/L [facility] Specimen Anatomical Collection Method Collection Time Receive d Time (Source) Location / / Volume Laterality Blood 02/08/2022 6:00 PM 6:21 EDT PM EDT Resulting Agency Comment Spec In Lab Parrish Betancourt MD CHEMISTRY ORDERABLES Performing Organization Address City/State/ZIP [place] [address] POCT Glucose (02/08/2022 5:56 PM EDT) P athologist Signature POC Glucose 92 65 - 199 [facility] mg/dL [facility] Comment: Supplemental ranges: <140 mg/dL before meals <180 mg/dL all other times of the day Specimen Anatomical Collection Method Collection Time Receive d Time (Source) Location / / Volume Laterality Blood 02/08/2022 5:56 PM 5:56 EDT PM EDT Parrish Betancourt MD POINT OF CARE TEST ORDERABLE S Performing Organization Address City/[facility]/ZIP [place] [address] Anaerobic Culture (02/08/2022 4:13 PM EDT) [facility] [email or web address] Method Time Signature Anaerobic No anaerobic [facility] Culture organisms [facility] LABORATORY Specimen Anatomical Collection Method Collection Time Receive d Time (Source) Location / / Volume Laterality Deep Wound STRUCTURE OF LEFT 02/08/2022 4:13 PM 01/29 4:33 THIGH / Unknown EDT PM EDT Comment: Left thigh #2 Resulting Agency Comment Spec In Lab Jeanette Chatterjee MD MICROBIOLOGY - GENERAL ORDER JT Performing Organization Address City/[facility] [place]/ZIP [place] [address] (ABNORMAL) Abscess/Wound Aspirate Culture (02/08/2022 4:13 PM EDT) [email or web address] Method Time Signature Abscess/Wound Many Pseudomonas aeruginosa JOSH Aspirate Many Serratia marcescens [facility] () [facility] Gram Stain Many Neutrophils seen JOSH Many Gram Negative Rods seen [facility] () [facility] Organism Pseudomonas JOSH aeruginosa (A) [facility] Organism Serratia JOSH marcescens (A) [facility] Organism Gram Negative JOSH Rods (A) [facility] Specimen Anatomical Collection Method Collection Time [...] GENERAL ORDER JT Performing Organization Address City/[facility] [place] [address] Anaerobic Culture (02/08/2022 4:13 PM EDT) [facility] Method Time Signature Anaerobic No anaerobic [facility] Culture organisms [facility] LABORATORY Specimen Anatomical Collection Method Collection Time Receive d Time (Source) Location / / Volume Laterality Deep Wound STRUCTURE OF LEFT 02/08/2022 4:13 PM 01/29 4:32 THIGH / Unknown EDT PM EDT Comment: Left thigh #1 Resulting Agency Comment Spec In Lab Jeanette Chatterjee MD MICROBIOLOGY - GENERAL ORDER JT Performing Organization Address City/[facility] [place]/ZIP Code Phon e Number [facility] [place] [address] (ABNORMAL) Abscess/Wound Aspirate Culture (02/08/2022 4:13 PM EDT) Component Value Ref Test Analysis Performed At [facility] gist Range Method Time Signature Abscess/Woun Many Pseudomonas aeruginosa JOSH d Aspirate Many Serratia marcescens [facility] Culture Susceptibilities previously reported [facility] Gram Stain Many Neutrophils seen JOSH Moderate Gram Negative Rods seen [facility]ORY Organism Pseudomonas JOSH aeruginosa (A) [facility] Organism Serratia marcescens JOSH (A) [facility] Specimen Anatomical Collection Method Collection Time Receive d Time (Source) Location / / Volume Laterality Deep Wound STRUCTURE OF LEFT 02/08/2022 4:13 PM 01/29 4:32 THIGH / Unknown EDT PM EDT Comment: Left thigh #1 Resulting Agency Comment Spec In Lab Jeanette Chatterjee MD MICROBIOLOGY - GENERAL ORDER JT Performing Organization Address City/State/ZIP Code Phon e Number [address] POCT Glucose (02/08/2022 12:09 PM EDT) athologist Signature POC Glucose 126 65 - 199 [facility] Comment: Supplemental ranges: <140 mg/dL before meals <180 mg/dL all other times of the day Specimen Anatomical Collection Method Collection Time Receive d Time (Source) Location / / Volume Laterality Blood 02/08/2022 12:09 02/08/2022 PM EDT 12:09 PM EDT Parrish Betancourt MD POINT OF CARE TEST ORDERABLE S Performing Organization Address City/State/ZIP [place] [address] POCT Glucose (02/08/2022 12:09 PM EDT) athologist Signature POC Glucose 100 65 - 199 [facility] mg/dL [facility] Comment: Supplemental ranges: <140 mg/dL before meals <180 mg/dL all other times of the day Specimen Anatomical Collection Method Collection Time Receive d Time (Source) Location / / Volume Laterality Blood 02/08/2022 12:09 02/08/2022 PM EDT 12:09 PM EDT Parrish Betancourt MD POINT OF CARE TEST ORDERABLE S Performing Organization Address City/State/[place] [address] (ABNORMAL) Blood Gas Arterial (NLH) (02/08/2022 12:00 PM EDT) Analysis Performed At Patho logist Time Signature pH Art 7.47 (H) 7.35 - [facility] 7.45 [facility] pCO2 Art 32 (L) 35 - 45 [facility] mmHg [facility] pO2 Art 129 (H) 85 - 104 [facility] LABORATORY HCO3 Art 22.9 20.0 - [facility] 26.0 [facility] mmol/L [facility] LABORATORY BE Art -0.7 -3.0 - 3.0 [facility] mmol/L [facility] Hgb Blood Gas 8.1 (L) 13.7 - [facility] 16.5 g/dL [facility] O2HB Art 97.5 (H) 94.0 - [facility] 97.0 % [facility] COHB Art 0.9 % [facility] LAB[facility]ORY Comment: Nonsmokers: ??0.5-1.5% COHB Smokers: ??Variable, but usually less th an 10% Toxic: 20 - 30% COHB Lethal: ??Greater than 60% COHB METHB Art 0.0 <=1.5 % [facility] Na Whole Blood 123 (L) 135 - 145 mmol/L [facility] K Whole Blood 4.7 3.5 - 5.0 mmol/L [facility]ORY Comment: Please note: ??Patients with WBC >100,00 0 may have falsely elevated Potassium levels. ??Contact the Clinical Chemistry Laboratory if there are any questions. ICa Whole Blood 1.26 1.15 - 1.33 mmol/L [facility]OR[facility]ORY Comment: Note: ??Total bilirubin higher than 20 m g/dL may lead to falsely low ionized calcium. CL Whole Blood 98 98 - 107 mmol/L [facility] LABORATORY Gluc Whole Bld 92 65 - 199 mg/dL [facility] LABORATORY Comment: Diabetes: >=200 mg/dL plus [...] Organization Address City/State/ZIP [place] [address] (ABNORMAL) Sodium (02/08/2022 12:00 PM EDT) P athologist Signature Sodium 127 (L) 135 - 145 [facility] mmol/L [facility] Specimen Anatomical Collection Method Collection Time Receive d Time (Source) Location / / Volume Laterality Blood 02/08/2022 12:00 02/08/2022 PM EDT 12:23 PM EDT Resulting Agency Comment Spec In Lab Parrish Betancourt MD CHEMISTRY ORDERABLES Performing Organization Address City/[facility] [place]/ZIP [place] [address] (ABNORMAL) Calcium Ionized Whole Blood, HONORIO (02/08/2022 11:00 AM EDT) Analysis Performed At Patho logist Time Signature pH Honorio 7.46 (H) 7.32 - [facility] 7.42 [facility] ICa Whole 1.26 1.15 - [facility] Blood 1.33 [facility] mmol/[facility] LABORATORY Comment: Note: ??Total bilirubin higher than 20 m g/dL may lead to falsely low ionized calcium. Specimen Anatomical Collection Method Collection Time Receive d Time (Source) Location / / Volume Laterality Blood ARTERIAL LINE / 02/08/2022 11:00 02/09/20 22 Unknown AM EDT 11:09 AM EDT Resulting Agency Comment Spec In Lab Parrish Betancourt MD CHEMISTRY ORDERABLES Performing Organization Address City/[facility] [place]/ZIP Code Phon e Number [address] POCT Glucose (02/08/2022 9:56 AM EDT) athologist Signature POC Glucose 96 65 - 199 [facility] mg/dL [facility] Comment: Supplemental ranges: <140 mg/dL before meals <180 mg/dL all other times of the day Specimen Anatomical Collection Method Collection Time Receive d Time (Source) Location / / Volume Laterality Blood 02/08/2022 9:56 AM 9:56 EDT AM EDT Parrish Betancourt MD POINT OF CARE TEST ORDERABLE S Performing Organization Address City/State/[place] [address] (ABNORMAL) BLOOD GAS 2 ARTERIAL (02/08/2022 8:15 AM EDT) athologist Signature pH Art 7.44 7.35 - [facility] 7.45 [facility] pCO2 Art 36 35 - 45 [facility] LABORATORY pO2 Art 108 (H) 85 - 104 [facility] LABORATORY HCO3 Art 23.8 20.0 - [facility] 26.0 [facility] mmol/L [facility] LABORATORY BE Art -0.3 -3.0 - 3.0 [facility] mmol/L [facility] Hgb Blood Gas 7.8 (L) 13.7 - [facility] 16.5 g/dL [facility] O2HB Art 95.7 94.0 - [facility] 97.0 % [facility] COHB Art 0.1 % [facility] Comment: Nonsmokers: 0.5-1.5% COHB Smokers: Variable, but usually less than 10% Toxic: 20-30% COHB Lethal: Greater than 60% COHB METHB Art 1.3 <=1.5 % [facility] Na Whole Blood 122 (L) 135 - 145 mmol/L [facility] K Whole Blood 4.6 3.5 - 5.0 mmol/L [facility]ORY Comment: Please note: Patients with WBC >100,000 may have falsely elevated Potassium levels. Contact the Clinical Chemistry L aboratory if there are any questions. ICa Whole Blood 1.27 1.15 - 1.33 mmol/L [facility] LABOR[facility]ORY Comment: Note: ??Total bilirubin higher than 20 m g/dL may lead to falsely low ionized calcium. CL Whole Blood 98 98 - 107 mmol/L [facility] Gluc Whole Bld 92 65 - 199 mg/dL [facility] Comment: Diabetes: >=200 mg/dL plus symp toms. Lactate WB 0.9 0.5 - 2.2 mmol/L [facility] FIO2 Art 21 % [facility] PF Ratio Art 514 [facility] LABORATORY Specimen Anatomical Collection Method Collection Time Receive d Time (Source) Location / / Volume Laterality Blood 02/08/2022 8:15 AM 2 8:15 EDT AM EDT Jayme Armstorng MD CHEMISTRY ORDERABLES Performing Organization Address City/[facility] [place]/ZIP Code Phon e Number [address] POCT Glucose (02/08/2022 7:42 AM EDT) P athologist Signature POC Glucose 98 65 - 199 [facility] mg/dL [facility] Comment: Supplemental ranges: <140 mg/dL before meals <180 mg/dL all other times of the day Specimen Anatomical Collection Method Collection Time Receive d Time (Source) Location / / Volume Laterality Blood 02/08/2022 7:42 AM 2 7:42 EDT AM EDT Jayme Armstrong MD POINT OF CARE TEST ORDERABLE S Performing Organization Address City/State/ZIP Code Phon e Number [address] Phosphorus (02/08/2022 5:57 AM EDT) P athologist Signature Phosphorus 3.9 2.5 - 4.5 [facility] mg/dL [facility] Specimen Anatomical Collection Method Collection Time Receive d Time (Source) Location / / Volume Laterality Blood 02/08/2022 5:57 AM 2 5:58 EDT AM EDT Resulting Agency Comment Spec In Lab Gela Novak MD CHEMISTRY ORDERABLES Performing Organization Address City/State/ZIP Code Phon e Number [address] Magnesium (02/08/2022 5:57 AM EDT) athologist Signature Magnesium 0.91 0.69 - 1.07 [facility] mmol/L [facility] Specimen Anatomical Collection Method Collection Time Receive d Time (Source) Location / / Volume Laterality Blood 02/08/2022 5:57 AM 5:58 EDT AM EDT Resulting Agency Comment Spec In Lab Gela Novak MD CHEMISTRY ORDERABLES Performing Organization Address City/[facility] [place]/[facility] Code Phon e Number [address] (ABNORMAL) Basic Metabolic Panel (non-fasting) (02/08/2022 5:57 AM EDT) athologist Signature Glucose Lvl 92 65 - 199 [facility] mg/dL [facility] Comment: Diabetes: >=200 mg/dL plus symp toms BUN 29 (H) 10 - 20 mg/dL [facility]ORY Creatinine 2.94 (H) 0.80 - 1.50 mg/dL [facility] LABORATORY Comment: result rechecked-red Sodium 126 (L) 135 - 145 mmol/L [facility] Potassium 4.9 3.5 - 5.0 mmol/L [facility] Comment: Please note: ??Patients with WBC >100,00 0 may have falsely elevated Potassium levels. ??For accurate Potassium quantif ication in these patients send serum separator tube (gold top) for subsequent determinations. ??Contact the Clinical Chemistry Laboratory if there are any qu estions. Chloride 97 (L) 98 - 107 mmol/L [facility] CO2 22 22 - 31 mmol/L [facility] Anion Gap 7 5 - 15 mmol/L [facility] Calcium 8.5 8.5 - 10.5 mg/dL [facility] LABORATORY Comment: result rechecked-red Estimated GFR 28 (L) >=60 mL/min/1.73 m?? [facility] Comment: This patient's estimated [...] Organization Address City/State/ZIP Code Phon e Number [place] [id number] [address] LAB[address]ORY Drive (ABNORMAL) BLOOD GAS 2 ARTERIAL (02/08/2022 5:54 AM EDT) Analysis Performed At Patho logist Time Signature pH Art 7.47 (H) 7.35 - [facility] 7.45 [facility] pCO2 Art 30 (L) 35 - 45 [facility] mmHg [facility] pO2 Art 87 85 - 104 [facility] mmHg [facility] HCO3 Art 21.5 20.0 - [facility] 26.0 [facility] mmol/L [facility] LABORATORY BE Art -2.1 -3.0 - 3.0 [facility] mmol/L [facility] Hgb Blood Gas 7.7 (L) 13.7 - [facility] 16.5 g/dL [facility] O2HB Art 94.2 94.0 - [facility] 97.0 % [facility] COHB Art 0.3 % [facility] Comment: Nonsmokers: 0.5-1.5% COHB Smokers: Variable, but usually less than 10% Toxic: 20-30% COHB Lethal: Greater than 60% COHB METHB Art 1.0 <=1.5 % [facility] Na Whole Blood 122 (L) 135 - 145 mmol/L [facility] K Whole Blood 4.8 3.5 - 5.0 mmol/L [facility] Comment: Please note: Patients with WBC >100,000 may have falsely elevated Potassium levels. Contact the Clinical Chemistry L aboratory if there are any questions. ICa Whole Blood 1.28 1.15 - 1.33 mmol/L [facility] Comment: Note: ??Total bilirubin higher than 20 m g/dL may lead to falsely low ionized calcium. CL Whole Blood 98 98 - 107 mmol/L [facility] Gluc Whole Bld 87 65 - 199 mg/dL [facility] Comment: Diabetes: >=200 mg/dL plus symp toms. Lactate WB 1.1 0.5 - 2.2 mmol/L [facility] FIO2 Art 21 % [facility] PF Ratio Art 414 [facility] Temp Art 37.2 Celsius [facility] Specimen Anatomical Collection Method Collection Time Receive d Time (Source) Location / / Volume Laterality Blood 02/08/2022 5:54 AM 5:54 EDT AM EDT Jayme Armstrong MD CHEMISTRY ORDERABLES Performing Organization Address City/State/[place] [address] Scan, Peripheral Blood (02/08/2022 1:00 AM EDT) [facility] Method Time Signature Plat Estimate Decreased [facility]ORY RBC Morphology Abnormal [facility] Polychromasia Present >5/HPF [facility]ORY Ovalocytes 1-5 /HPF [facility] LABOR[facility]ORY Angel Cells 1-5 /HPF [facility]ORY Toxic Granulation Present [facility]ORATORY Specimen Anatomical Collection Method Collection Time Receive d Time (Source) Location / / Volume Laterality Blood 02/08/2022 1:00 AM 2 1:20 EDT AM EDT Resulting Agency Comment Spec In Lab Danielle Ramirez MD HEMATOLOGY ORDERABLES Performing Organization Address City/State/[place] [address] (ABNORMAL) Differential, Automated (02/08/2022 1:00 AM EDT) [facility] Method Time Signature Neutrophils % 67.2 % [facility] LABORATORY Neutr Abs (ANC) 12.53 (H) 1.70 - [facility] 6.10 [facility] x10(3)/[facility] LABORATORY Lymphocytes % 8.1 % [facility] LABORATORY Lymphocytes Abs 1.5 0.9 - 3.2 [facility] x10(3)/[facility] LABORATORY Monocytes % 13.3 % [facility] LABORATORY Monocyte Abs 2.5 (H) 0.3 - 0.9 [facility] x10(3)/[facility] LABORATORY Eosinophils % 1.2 % [facility]ORY Eosinophils Abs 0.2 0.0 - 0.4 [facility] x10(3)/[facility] LABORATORY Basophils % 0.5 % [facility]ORATORY Basophils Abs 0.1 0.0 - 0.1 [facility] x10(3)/[facility] LABORATORY Immature Gran % 9.70 % [facility]ORY Comment: Immature granulocytes(IG's)percentage an d absolute count will include metamyelocytes, myelocytes, and promyelo cytes. Blood smears from CBCs yielding IG's will be scanned manually for concor dance. If this scan disagrees with the automated IG or if promyelocytes are not ed, a manual differential will be performed. Gemini Gran Abs 1.81 (H) 0.00 - 0.04 x10(3)/[facility] LABORATORY Specimen Anatomical Collection Method Collection Time Receive d Time (Source) Location / / Volume Laterality Blood 02/08/2022 1:00 AM 2 1:20 EDT AM EDT Resulting Agency Comment Spec In Lab Danielle Ramirez MD HEMATOLOGY ORDERABLES Performing Organization Address City/State/[place] [address] (ABNORMAL) Hemogram (02/08/2022 1:00 AM EDT) [facility] Method Time Signature WBC 18.6 (H) 4.0 - 9.5 [facility] x[facility](3)/[facility] LABORATORY RBC 2.51 (L) 4.58 - [facility] 5.54 [facility] x10(6)/[facility] LABORATORY Hemoglobin 7.3 (L) 13.7 - [facility] 16[facility] g/dL [facility] Hematocrit 20.7 (L) 40.5 - [facility] 48.5 % [facility] MCV 82.5 (L) 82.9 - [facility] 93.1 [facility] LABORATORY MCH 29.1 27.5 - [facility] 32.1 pg [facility] MCHC 35.3 32.0 - [facility] 35.7 g/dL [facility] Platelets 97 (L) 145 - 357 [facility] x10(3)/[facility] LABORATORY RDWSD 42.7 36.0 - [facility] 45.0 [facility] LABORATORY RDWCV 15.6 (H) 11.4 - [facility] 13.8 % [facility] MPV 9.7 7.6 - 12.9 [facility] LABORATORY nRBC % Auto 0.5 % [facility] LABORATORY nRBC Abs Auto 0.100 (H) 0.000 - [facility] MANDO 0.000 [facility] x10(3)/[facility] LABORATORY Specimen Anatomical Collection Method Collection Time Receive d Time (Source) Location / / Volume Laterality Blood 02/08/2022 1:00 AM 2 1:20 EDT AM EDT Resulting Agency Comment Spec In Lab Danielle Ramirez MD HEMATOLOGY ORDERABLES Performing Organization Address City/[facility]/[place] [address] (ABNORMAL) Fibrinogen (02/08/2022 1:00 AM EDT) athologist Signature Fibrinogen 423 (H) 200 - 393 [facility] mg/dL [facility] Comment: A fibrinogen level >100 mg/dL is adequat e for hemostasis in most patients without underlying bleeding disorders. Specimen Anatomical Collection Method Collection Time Receive d Time (Source) Location / / Volume Laterality Blood 02/08/2022 1:00 AM 2 1:20 EDT AM EDT Resulting Agency Comment Spec In Lab Jayme Armstrong MD HEMATOLOGY ORDERABLES Performing Organization Address City/[facility]/ZIP [facility] [place] [address] APTT (02/08/2022 1:00 AM EDT) athologist Signature PTT 25 25 - 37 sec [facility]ORATORY Comment: The PTT is NOT [...] MD HEMATOLOGY ORDERABLES Performing Organization Address City/[facility]/ZIP [place] [address] Prothrombin Time (02/08/2022 1:00 AM EDT) athologist Signature PT 12.2 9.4 - 12.5 [facility] LABORATORY INR 1.1 [facility]ORATORY Comment: An [...] Organization Address City/State/[place] [address] (ABNORMAL) Blood Gas Arterial (NLH) (02/08/2022 12:01 AM EDT) Analysis Performed At Patho logist Time Signature pH Art 7.47 (H) 7.35 - [facility] 7.45 [facility] pCO2 Art 32 (L) 35 - 45 [facility] mmHg [facility] pO2 Art 87 85 - 104 [facility] LABORATORY HCO3 Art 22.6 20.0 - [facility] 26.0 [facility] mmol/L [facility] LABORATORY BE Art -1.1 -3.0 - 3.0 [facility] mmol/L [facility] Hgb Blood Gas 7.7 (L) 13.7 - [facility] 16.5 g/dL [facility] O2HB Art 95.4 94.0 - [facility] 97.0 % [facility] COHB Art 1.0 % [facility] LABORATORY Comment: Nonsmokers: ??0.5-1.5% COHB Smokers: ??Variable, but usually less th an 10% Toxic: 20 - 30% COHB Lethal: ??Greater than 60% COHB METHB Art 0.1 <=1.5 % [facility] LABORATORY Na Whole Blood 122 (L) 135 - 145 mmol/L [facility]ORAT[facility] K Whole Blood 4.6 3.5 - 5.0 mmol/L [facility]ORATORY Comment: Please note: ??Patients with WBC >100,00 0 may have falsely elevated Potassium levels. ??Contact the Clinical Chemistry Laboratory if there are any questions. ICa Whole Blood 1.24 1.15 - 1.33 mmol/L [facility] LABORATORY Comment: Note: ??Total bilirubin higher than 20 m g/dL may lead to falsely low ionized calcium. CL Whole Blood 99 98 - 107 mmol/L [facility] LABORATORY Gluc Whole Bld 89 65 - 199 mg/dL [facility]OR[facility]ORY Comment: Diabetes: >=200 mg/dL plus [...] Organization Address City/State/ZIP Code Phon e Number [address] (ABNORMAL) Sodium (02/08/2022 12:01 AM EDT) P athologist Signature Sodium 125 (L) 135 - 145 [facility] mmol/L [facility] Specimen Anatomical Collection Method Collection Time Receive d Time (Source) Location / / Volume Laterality Blood 02/08/2022 12:01 02/08/2022 AM EDT 12:15 AM EDT Resulting Agency Comment Spec In Lab Parrish Betancourt MD CHEMISTRY ORDERABLES Performing Organization Address City/State/ZIP Code Phon e Number [address] Prepare RBC (02/07/2022 7:40 PM EDT) P athologist Signature Dispensed? Yes [facility] LABORATORY Specimen Anatomical Collection Method Collection Time Receive d Time (Source) Location / / Volume Laterality Blood 02/07/2022 7:40 PM 7:39 EDT PM EDT Jayme Armstrong MD BLOOD BANK ORDERABLES Performing Organization Address City/State/ZIP [place] [address] (ABNORMAL) BLOOD GAS 2 ARTERIAL (02/07/2022 6:08 PM EDT) Analysis Performed At Patho logist Time Signature pH Art 7.50 (H) 7.35 - [facility] 7.45 [facility] pCO2 Art 27 (L) 35 - 45 [facility] LABORATORY pO2 Art 81 (L) 85 - 104 [facility] LABORATORY HCO3 Art 20.8 20.0 - [facility] 26.0 [facility] mmol/[facility] LABORATORY BE Art -2.4 -3.0 - 3.0 [facility] mmol/L [facility] Hgb Blood Gas 8.5 (L) 13.7 - [facility] 16.5 g/dL [facility] O2HB Art 93.9 (L) 94.0 - [facility] 97.0 % [facility] COHB Art 0.3 % [facility] Comment: Nonsmokers: 0.5-1.5% COHB Smokers: Variable, but usually less than 10% Toxic: 20-30% COHB Lethal: Greater than 60% COHB METHB Art 1.0 <=1.5 % [facility] Na Whole Blood 119 (Critical) 135 - 145 mmol/L [facility] Comment: Noted by instrument assembly supervisor. K Whole Blood 5.1 (H) 3.5 - 5.0 mmol/L [facility] Comment: Please note: Patients with WBC >100,000 may have falsely elevated Potassium levels. Contact the Clinical Chemistry L aboratory if there are any questions. ICa Whole Blood 1.18 1.15 - 1.33 mmol/L [facility] Comment: Note: ??Total bilirubin higher than 20 m g/dL may lead to falsely low ionized calcium. CL Whole Blood 96 (L) 98 - 107 mmol/L [facility] Gluc Whole Bld 100 65 - 199 mg/dL [facility] Comment: Diabetes: >=200 mg/dL plus symp toms. Lactate WB 1.4 0.5 - 2.2 mmol/L [facility] Flow Art 21.0 LPM [facility] Specimen Anatomical Collection Method Collection Time Receive d Time (Source) Location / / Volume Laterality Blood 02/07/2022 6:08 PM 6:08 EDT PM EDT Jayme Armstrong MD CHEMISTRY ORDERABLES Performing Organization Address City/State/ZIP [place] [address] Scan, Peripheral Blood (02/07/2022 6:05 PM EDT) [facility] Method Time Signature Plat Estimate Decreased [facility] RBC Morphology Abnormal [facility] Polychromasia Present >5/HPF [facility] Lawrence Cells 1-5 /HPF [facility] Stippled RBCs Present >1/HPF [facility] Specimen Anatomical Collection Method Collection Time Receive d Time (Source) Location / / Volume Laterality Blood 02/07/2022 6:05 PM 6:10 EDT PM EDT Resulting Agency Comment Spec In Lab Rogers Solano APRN HEMATOLOGY ORDERABLES Performing Organization Address City/[facility]/ZIP Code Phon e Number [address] (ABNORMAL) Differential, Automated (02/07/2022 6:05 PM EDT) [facility] Method Time Signature Neutrophils % 67.7 % [facility] Neutr Abs (ANC) 12.21 (H) 1.70 - [facility] 6.10 [facility] x10(3)/[facility] LABORATORY Lymphocytes % 7.1 % [facility] Lymphocytes Abs 1.3 0.9 - 3.2 [facility] x10(3)/[facility] LABORATORY Monocytes % 14.1 % [facility] Monocyte Abs 2.6 (H) 0.3 - 0.9 [facility] x10(3)/[facility] LABORATORY Eosinophils % 0.8 % [facility] Eosinophils Abs 0.1 0.0 - 0.4 [facility] x10(3)/[facility] LABORATORY Basophils % 0.4 % [facility] Basophils Abs 0.1 0.0 - 0.1 [facility] x10(3)/[facility] LABORATORY Immature Gran % 9.90 % [facility] Comment: Immature granulocytes(IG's)percentage an d absolute count will include metamyelocytes, myelocytes, and promyelo cytes. Blood smears from CBCs yielding IG's will be scanned manually for ny crain. If this scan disagrees with the automated IG or if promyelocytes are not ed, a manual differential will be performed. Gemini Gran Abs 1.79 (H) 0.00 - 0.04 x10(3)/[facility] LABORATORY Specimen Anatomical Collection Method Collection Time Receive d Time (Source) Location / / Volume Laterality Blood 02/07/2022 6:05 PM 6:10 EDT PM EDT Resulting Agency Comment Spec In Lab Rogers Solano APRN HEMATOLOGY ORDERABLES Performing Organization Address City/State/ZIP Code Phon e Number [place] [id number] HOSPITAL LABORATORY Drive (ABNORMAL) Hemogram (02/07/2022 6:05 PM EDT) [facility] gist Method Time Signature WBC 18.0 (H) 4.0 - 9.5 [facility] x10(3)/[facility] LABORATORY RBC 2.31 (L) 4.58 - [facility] 5.54 [facility] x10(6)/[facility] LABORATORY Hemoglobin 6.8 (L) 13.7 - [facility] 16.5 g/dL [facility] Hematocrit 19.3 (L) 40.5 - [facility] 48.5 % [facility] MCV 83.5 82.9 - [facility]1 [facility] LABORATORY MCH 29.4 27.5 - [facility] 32.1 pg [facility] MCHC 35.2 32.0 - [facility] 35.[facility] g/dL [facility] Platelets 85 (L) 145 - 357 [facility] x[facility](3[facility] LABORATORY RDWSD 42.5 36.0 - [facility] 45.0 [facility] LABORATORY RDWCV 14.7 (H) 11.4 - [facility] 13.8 % [facility] MPV 9.9 7.6 - 12.9 [facility] LABORATORY nRBC % Auto 0.8 % [facility] nRBC Abs Auto 0.150 (H) 0.000 - [facility] 0.000 [facility] x10(3)/[facility] LABORATORY Specimen Anatomical Collection Method Collection Time Receive d Time (Source) Location / / Volume Laterality Blood 02/07/2022 6:05 PM 2 6:10 EDT PM EDT Resulting Agency Comment Spec In Lab Rogers Solano APRN HEMATOLOGY ORDERABLES Performing Organization Address City/[facility]/ZIP [place] [address] (ABNORMAL) Sodium (02/07/2022 6:05 PM EDT) P athologist Signature Sodium 125 (L) 135 - 145 [facility] mmol/L [facility] Specimen Anatomical Collection Method Collection Time Receive d Time (Source) Location / / Volume Laterality Blood 02/07/2022 6:05 PM 2 6:10 EDT PM EDT Resulting Agency Comment Spec In Lab Parrish Betancourt MD CHEMISTRY ORDERABLES Performing Organization Address City/[facility]/ZIP [place] [address] (ABNORMAL) Calcium Ionized Whole Blood, HONORIO (02/07/2022 4:30 PM EDT) Analysis Performed At Patho logist Time Signature pH Honorio 7.43 (H) 7.32 - [facility] 7.42 [facility] ICa Whole 1.15 1.15 - [facility] Blood 1.33 [facility] mmol/L [facility] Comment: Note: ??Total bilirubin higher than 20 m g/dL may lead to falsely low ionized calcium. Specimen Anatomical Collection Method Collection Time Receive d Time (Source) Location / / Volume Laterality Blood ARTERIAL LINE / 02/07/2022 4:30 PM 2021 4:38 Unknown EDT PM EDT Resulting Agency Comment Spec In Lab Parrish Betancourt MD CHEMISTRY ORDERABLES Performing Organization Address City/[facility]/ZIP [place] [address] Transfuse RBC (02/07/2022 4:20 PM EDT) Rogers Solano APRN NURSING TREATMENT ORDERABLES - BLOOD ADMIN Transfuse RBC (02/07/2022 4:20 PM EDT) Rogers Solano KATERYNA NURSING TREATMENT ORDERABLES - BLOOD ADMIN Prepare RBC (02/07/2022 1:30 PM EDT) P athologist Signature Dispensed? Yes [facility] Specimen Anatomical Collection Method Collection Time Receive d Time (Source) Location / / Volume Laterality Blood 02/07/2022 1:30 PM 2 1:29 EDT PM EDT Rogers Solano KATERYNA BLOOD BANK ORDERABLES Performing Organization Address City/State/ZIP Code Phon e Number [place] [phone] HOSPITAL LABORATORY Drive XR Chest One View [...] who have questions please contact the health career technical education teacher that requested your imaging first. ? Narrative [...] ho have questions please contact the health career technical education teacher that requested your imaging first. Jayme Armstrong MD IMG DX ORDERABLES (ABNORMAL) BLOOD GAS 2 ARTERIAL (02/07/2022 1:04 PM EDT) Analysis Performed At Patho logist Time Signature pH Art 7.51 (H) 7.35 - [facility] 7.45 [facility] pCO2 Art 28 (L) 35 - 45 [facility] LABORATORY pO2 Art 78 (L) 85 - 104 [facility] LABORATORY HCO3 Art 22.0 20.0 - [facility] 26.0 [facility] mmol/L [facility] BE Art -1.0 -3.0 - 3.0 [facility] mmol/L [facility] Hgb Blood Gas 7.4 (L) 13.7 - [facility] 16.5 g/dL [facility] O2HB Art 93.3 (L) 94.0 - [facility] 97.0 % [facility] COHB Art 0.3 % [facility] Comment: Nonsmokers: 0.5-1.5% COHB Smokers: Variable, but usually less than 10% Toxic: 20-30% COHB Lethal: Greater than 60% COHB METHB Art 1.2 <=1.5 % [facility] Na Whole Blood 118 (Critical) 135 - 145 mmol/L [facility] Comment: Noted by instrument assembly supervisor. K Whole Blood 5.8 (H) 3.5 - 5.0 mmol/L [facility] Comment: Please note: Patients with WBC >100,000 may have falsely elevated Potassium levels. Contact the Clinical Chemistry L aboratory if there are any questions. ICa Whole Blood 1.08 (L) 1.15 - 1.33 mmol/L [facility] Comment: Note: ??Total bilirubin higher than 20 m g/dL may lead to falsely low ionized calcium. CL Whole Blood 94 (L) 98 - 107 mmol/L [facility] Gluc Whole Bld 104 65 - 199 mg/dL [facility] Comment: Diabetes: >=200 mg/dL plus symp toms. Lactate WB 1.2 0.5 - 2.2 mmol/L [facility] FIO2 Art 21 % [facility] PF Ratio Art 371 [facility] Specimen Anatomical Collection Method Collection Time Receive d Time (Source) Location / / Volume Laterality Blood 02/07/2022 1:04 PM 2 1:04 EDT PM EDT Jayme Armstrong MD CHEMISTRY ORDERABLES Performing Organization Address City/State/[place] [address] (ABNORMAL) Phosphorus (02/07/2022 1:00 PM EDT) P athologist Signature Phosphorus 5.0 (H) 2.5 - 4.5 [facility] mg/dL [facility] Specimen Anatomical Collection Method Collection Time Receive d Time (Source) Location / / Volume Laterality Blood Venous Draw / 02/07/2022 1:00 PM 02/08/20 22 1:15 Unknown EDT PM EDT Resulting Agency Comment Spec In Lab Angelina Reynoso MD CHEMISTRY ORDERABLES Performing Organization Address City/[facility]/ZIP Code Phon e Number [address] Magnesium (02/07/2022 1:00 PM EDT) P athologist Signature Magnesium 0.87 0.69 - 1.07 [facility]/L [facility] Specimen Anatomical Collection Method Collection Time Receive d Time (Source) Location / / Volume Laterality Blood Venous Draw / 02/07/2022 1:00 PM 02/08/20 22 1:15 Unknown EDT PM EDT Resulting Agency Comment Spec In Lab Angelina Reynoso MD CHEMISTRY ORDERABLES Performing Organization Address City/[facility]/ZIP Code Phon e Number [address] (ABNORMAL) Differential, Automated (02/07/2022 1:00 PM EDT) Patholo gist Method Time Signature Neutrophils % 67.1 % [facility] Neutr Abs (ANC) 13.59 (H) 1.70 - [facility] 6.10 [facility] x10(3)/[facility] LABORATORY Lymphocytes % 6.8 % [facility] Lymphocytes Abs 1.4 0.9 - 3.2 [facility] x10(3)/[facility] LABORATORY Monocytes % 13.2 % [facility] Monocyte Abs 2.7 (H) 0.3 - 0.9 [facility] x10(3)/[facility] LABORATORY Eosinophils % 0.5 % [facility] Eosinophils Abs 0.1 0.0 - 0.4 [facility] x10(3)/[facility] LABORATORY Basophils % 0.5 % [facility] Basophils Abs 0.1 0.0 - 0.1 [facility](3[facility]ORATORY Immature Gran % 11.90 % [facility] Comment: Immature granulocytes(IG's)percentage an d absolute count will include metamyelocytes, myelocytes, and promyelo cytes. Blood smears from CBCs yielding IG's will be scanned manually for concor dance. If this scan disagrees with the automated IG or if promyelocytes are not ed, a manual differential will be performed. Gemini Gran Abs 2.40 (H) 0.00 - 0.04 x10(3)/[facility] LABORATORY Specimen Anatomical Collection Method Collection Time Receive d Time (Source) Location / / Volume Laterality Blood 02/07/2022 1:00 PM 1:09 EDT PM EDT Resulting Agency Comment Spec In Lab Batsheva Hill MD HEMATOLOGY ORDERABLES Performing Organization Address City/State/ZIP Code Phon e Number [place] [phone] HOSPITAL LABORATORY Drive (ABNORMAL) Hemogram (02/07/2022 1:00 PM EDT) [facility] gist Method Time Signature WBC 20.2 (H) 4.0 - 9.5 [facility](3[facility] LABORATORY RBC 2.25 (L) 4.58 - [facility] 5.54 [facility] x10(6)/[facility] LABORATORY Hemoglobin 6.6 (L) 13.7 - [facility] 16.5 g/dL [facility] Hematocrit 18.6 (L) 40.5 - [facility] 48.5 % [facility] MCV 82.7 (L) 82.9 - [facility] 93.1 [facility] LABORATORY MCH 29.3 27.5 - [facility] 32.1 pg [facility] MCHC 35.5 32.0 - [facility] 35.7 g/dL [facility] Platelets 112 (L) 145 - 357 [facility] x10(3)/[facility] LABORATORY RDWSD 42.7 36.0 - [facility] 45.0 [facility] LABORATORY RDWCV 14.9 (H) 11.4 - [facility] 13.8 % [facility] MPV 9.8 7.6 - 12.9 [facility] LABORATORY nRBC % Auto 0.9 % [facility] nRBC Abs Auto 0.190 (H) 0.000 - [facility] [place] 0.000 [facility] x10(3)/[facility] LABORATORY Specimen Anatomical Collection Method Collection Time Receive d Time (Source) Location / / Volume Laterality Blood 02/07/2022 1:00 PM 2 1:09 EDT PM EDT Resulting Agency Comment Spec In Lab Batsheva Hill MD HEMATOLOGY ORDERABLES Performing Organization Address City/State/[place] [address] (ABNORMAL) Basic Metabolic Panel (non-fasting) (02/07/2022 1:00 PM EDT) P athologist Signature Glucose Lvl 105 65 - 199 [facility] mg/dL [facility] Comment: Diabetes: >=200 mg/dL plus symp toms BUN 41 (H) 10 - 20 mg/dL [facility] Creatinine 3.92 (H) 0.80 - 1.50 mg/dL [facility] Sodium 123 (L) 135 - 145 mmol/L [facility] Potassium 6.0 (H) 3.5 - 5.0 mmol/L [facility] Comment: Please note: ??Patients with WBC >100,00 0 may have falsely elevated Potassium levels. ??For accurate Potassium quantif ication in these patients send serum separator tube (gold top) for subsequent determinations. ??Contact the Clinical Chemistry Laboratory if there are any qu estions. Chloride 94 (L) 98 - 107 mmol/L [facility] CO2 21 (L) 22 - 31 mmol/L [facility] Anion Gap 8 5 - 15 mmol/L [facility] Calcium 7.4 (L) 8.5 - 10.5 mg/dL [facility] Estimated GFR 20 (L) >=60 mL/min/1.73 m?? [facility] Comment: This patient's estimated [...] Organization Address City/State/ZIP [place] [address] CENTRAL LINE (02/07/2022 12:52 [...] location at time of insertion: I 4 [facility] Rogers Solano APRN Rogers Solano APRN PROCEDURE/MINOR SURGICAL ORD ERABLES POCT Glucose (02/07/2022 8:22 AM EDT) athologist Signature POC Glucose 130 65 - 199 [facility] mg/dL [facility] Comment: Supplemental ranges: <140 mg/dL before meals <180 mg/dL all other times of the day Specimen Anatomical Collection Method Collection Time Receive d Time (Source) Location / / Volume Laterality Blood 02/07/2022 8:22 AM 8:22 EDT AM EDT Jayme Armstrong MD POINT OF CARE TEST ORDERABLE S Performing Organization Address City/State/ZIP Code Phon e Number [place] [phone] HOSPITAL LABORATORY Drive (ABNORMAL) BLOOD GAS 2 ARTERIAL (02/07/2022 8:16 AM EDT) Analysis Performed At Patho logist Time Signature pH Art 7.50 (H) 7.35 - [facility] 7.45 [facility] pCO2 Art 29 (L) 35 - 45 [facility] mmHg [facility] pO2 Art 76 (L) 85 - 104 [facility] mmHg [facility] HCO3 Art 21.8 20.0 - [facility] 26.0 [facility] mmol/L [facility] BE Art -1.4 -3.0 - 3.0 [facility] mmol/L [facility] Hgb Blood Gas 8.0 (L) 13.7 - [facility] 16.5 g/dL [facility] O2HB Art 92.9 (L) 94.0 - [facility] 97.0 % [facility] COHB Art 0.3 % [facility] Comment: Nonsmokers: 0.5-1.5% COHB Smokers: Variable, but usually less than 10% Toxic: 20-30% COHB Lethal: Greater than 60% COHB METHB Art 1.4 <=1.5 % [facility] Na Whole Blood 117 (Critical) 135 - 145 mmol/L [facility] Comment: Noted by instrument assembly supervisor. K Whole Blood 5.7 (H) 3.5 - 5.0 mmol/L [facility] Comment: Please note: Patients with WBC >100,000 may have falsely elevated Potassium levels. Contact the Clinical Chemistry L aboratory if there are any questions. ICa Whole Blood 1.11 (L) 1.15 - 1.33 mmol/L [facility] Comment: Note: ??Total bilirubin higher than 20 m g/dL may lead to falsely low ionized calcium. CL Whole Blood 94 (L) 98 - 107 mmol/L [facility] Gluc Whole Bld 116 65 - 199 mg/dL [facility] Comment: Diabetes: >=200 mg/dL plus symp toms. Lactate WB 1.3 0.5 - 2.2 mmol/L [facility] FIO2 Art 21 % [facility] PF Ratio Art 362 [facility] Specimen Anatomical Collection Method Collection Time Receive d Time (Source) Location / / Volume Laterality Blood 02/07/2022 8:16 AM 8:16 EDT AM EDT Jayme Armstrong MD CHEMISTRY ORDERABLES Performing Organization Address City/State/[place] [address] Scan, Peripheral Blood (02/07/2022 6:05 AM EDT) [facility] Method Time Signature Plat Estimate Decreased [facility] RBC Morphology Abnormal [facility] Microcytes 1-5 /HPF [facility] Polychromasia Present >5/HPF [facility] Ovalocytes 1-5 /HPF [facility] Angel Cells 1-5 /HPF [facility] Specimen Anatomical Collection Method Collection Time Receive d Time (Source) Location / / Volume Laterality Blood 02/07/2022 6:05 AM 6:11 EDT AM EDT Resulting Agency Comment Spec In Lab Collette ELLIS HEMATOLOGY ORDERABLES Performing Organization Address City/State/[place] [address] (ABNORMAL) Differential, Automated (02/07/2022 6:05 AM EDT) [facility] Method Time Signature Neutrophils % 64.3 % [facility] Neutr Abs (ANC) 15.67 (H) 1.70 - [facility] 6.10 [facility] x10(3)/[facility] LABORATORY Lymphocytes % 6.4 % [facility] Lymphocytes Abs 1.6 0.9 - 3.2 [facility] x10(3)/[facility] LABORATORY Monocytes % 13.7 % [facility] Monocyte Abs 3.3 (H) 0.3 - 0.9 [facility] x10(3)/[facility] LABORATORY Eosinophils % 0.5 % [facility] Eosinophils Abs 0.1 0.0 - 0.4 [facility] x10(3)/[facility] LABORATORY Basophils % 0.5 % [facility] Basophils Abs 0.1 0.0 - 0.1 [facility] x10(3)[facility] LABORATORY Immature Gran % 14.60 % [facility] Comment: Immature granulocytes(IG's)percentage an d absolute count will include metamyelocytes, myelocytes, and promyelo cytes. Blood smears from CBCs yielding IG's will be scanned manually for concor dance. If this scan disagrees with the automated IG or if promyelocytes are not ed, a manual differential will be performed. Gemini Gran Abs 3.54 (H) 0.00 - 0.04 x10(3)/[facility] LABORATORY Specimen Anatomical Collection Method Collection Time Receive d Time (Source) Location / / Volume Laterality Blood 02/07/2022 6:05 AM 2 6:11 EDT AM EDT Resulting Agency Comment Spec In Lab Collette ELLIS HEMATOLOGY ORDERABLES Performing Organization Address City/State/[place] [address] (ABNORMAL) Hemogram (02/07/2022 6:05 AM EDT) [facility] gist Method Time Signature WBC 24.3 (H) 4.0 - 9.5 [facility] x10(3)/[facility] LABORATORY RBC 2.41 (L) 4.58 - [facility] 5.54 [facility] x10(6)/[facility] LABORATORY Hemoglobin 7.1 (L) 13.7 - [facility] 16.5 g/dL [facility] Hematocrit 19.7 (L) 40.5 - [facility] 48.5 % [facility] MCV 81.7 (L) 82.9 - [facility] 93.1 [facility] LABORATORY MCH 29.5 27.5 - [facility] 32.1 pg [facility] MCHC 36.0 (H) 32.0 - [facility] 35.7 g/dL [facility] Platelets 89 (L) 145 - 357 [facility] x10(3)/[facility] LABORATORY RDWSD 42.7 36.0 - [facility] 45.0 [facility] LABORATORY RDWCV 15.1 (H) 11.4 - [facility] 13.8 % [facility] MPV 9.8 7.6 - 12.9 [facility] LABORATORY nRBC % Auto 1.5 % [facility] nRBC Abs Auto 0.370 (H) 0.000 - [facility] 0.000 [facility] x10(3)/[facility] LABORATORY Specimen Anatomical Collection Method Collection Time Receive d Time (Source) Location / / Volume Laterality Blood 02/07/2022 6:05 AM 2 6:11 EDT AM EDT Resulting Agency Comment Spec In Lab Collette ELLIS HEMATOLOGY ORDERABLES Performing Organization Address City/[facility]/ZIP [place] [address] (ABNORMAL) Sodium (02/07/2022 6:05 AM EDT) P athologist Signature Sodium 126 (L) 135 - 145 [facility] mmol/L [facility] Specimen Anatomical Collection Method Collection Time Receive d Time (Source) Location / / Volume Laterality Blood 02/07/2022 6:05 AM 2 6:11 EDT AM EDT Resulting Agency Comment Spec In Lab Parrish Betancourt MD CHEMISTRY ORDERABLES Performing Organization Address City/[facility]/ZIP [place] [address] Transfuse RBC (02/07/2022 5:36 AM EDT) Jayme Armstrong MD NURSING TREATMENT ORDERABLES - BLOOD ADMIN Transfuse RBC (02/07/2022 5:36 AM EDT) Jayme Armstrong MD NURSING TREATMENT ORDERABLES - BLOOD ADMIN Prepare RBC (02/07/2022 4:55 AM EDT) P athologist Signature Dispensed? Yes [facility]OR[facility]ORY Specimen Anatomical Collection Method Collection Time Receive d Time (Source) Location / / Volume Laterality Blood 02/07/2022 4:55 AM 2 4:51 EDT AM EDT Jayme Armstrong MD BLOOD BANK ORDERABLES Performing Organization Address City/[facility]/ZIP [place] [address] (ABNORMAL) Calcium Ionized Whole Blood, HONORIO (02/07/2022 3:00 AM EDT) Analysis Performed At Patho logist Time Signature pH Honorio 7.45 (H) 7.32 - [facility] 7.42 [facility] ICa Whole 1.14 (L) 1.15 - [facility] Blood 1.33 [facility] mmol/L [facility] Comment: Note: ??Total bilirubin higher than 20 m g/dL may lead to falsely low ionized calcium. Specimen Anatomical Collection Method Collection Time Receive d Time (Source) Location / / Volume Laterality Blood ARTERIAL LINE / 02/07/2022 3:00 AM 2021 3:11 Unknown EDT AM EDT Resulting Agency Comment Spec In Lab Angelina Reynoso MD CHEMISTRY ORDERABLES Performing Organization Address City/[facility]/ZIP [place] [address] Fibrinogen (02/07/2022 2:10 AM EDT) P athologist Signature Fibrinogen 362 200 - 393 [facility] mg/dL [facility] Comment: A fibrinogen level >100 mg/dL is adequat e for hemostasis in most patients without underlying bleeding disorders. Specimen Anatomical Collection Method Collection Time Receive d Time (Source) Location / / Volume Laterality Blood 02/07/2022 2:10 AM 2 2:19 EDT AM EDT Resulting Agency Comment Spec In Lab Collette ELLIS HEMATOLOGY ORDERABLES Performing Organization Address [facility] [place] [address] Prothrombin Time (02/07/2022 2:10 AM EDT) P athologist Signature PT 11.3 9.4 - 12.5 [facility] LABORATORY INR 1.0 [facility] Comment: An [...] ELLIS HEMATOLOGY ORDERABLES Performing Organization Address City/[facility]/ZIP [place] [address] (ABNORMAL) Platelet count (02/07/2022 2:10 AM EDT) athologist Signature Platelets 128 (L) 145 - 357 [place] [place] x10(3)/[facility] LABORATORY Plat Immature 7.0 0.0 - 7.4 [facility] [place] % % [facility] Comment: Limitation of the Immature Platelet Frac tion (IPF)-May be less reliable when the platelet count is less than 36v259/u L due to statistical imprecision. The IPF [...] in a decreased state of production. References: [employer] The Clinical Value of the Immature Platelet Fraction (IPF) in Cell Recovery Document Number [id number] 12/2010 [employer] The Role of the Imm ature [...] City/State/ZIP Code Phon e Number [place] [address] (ABNORMAL) Hematocrit (02/07/2022 2:10 AM EDT) athologist Signature Hematocrit 19.8 (L) 40.5 - [place] 48.5 % [facility] Specimen Anatomical Collection Method Collection Time Receive d Time (Source) Location / / Volume Laterality Blood 02/07/2022 2:10 AM 2 2:19 EDT AM EDT Resulting Agency Comment Spec In Lab Collette Liana Rob ELLIS HEMATOLOGY ORDERABLES Performing Organization Address City/State/ZIP Code Phon e Number [address] (ABNORMAL) Hemoglobin (02/07/2022 2:10 AM EDT) P athologist Signature Hemoglobin 7.2 (L) 13.7 - 16.5 [facility] g/dL [facility] Specimen Anatomical Collection Method Collection Time Receive d Time (Source) Location / / Volume Laterality Blood 02/07/2022 2:10 AM 2 2:19 EDT AM EDT Resulting Agency Comment Spec In Lab Collette Liana Rob ELLIS HEMATOLOGY ORDERABLES Performing Organization Address City/State/ZIP [place] [address] (ABNORMAL) BLOOD GAS 2 ARTERIAL (02/07/2022 12:52 AM EDT) Analysis Performed At Patho logist Time Signature pH Art 7.44 7.35 - [facility] 7.45 [facility] pCO2 Art 34 (L) 35 - 45 [facility] mmHg [facility] pO2 Art 81 (L) 85 - 104 [facility] mmHg [facility] HCO3 Art 22.4 20.0 - [facility] 26.0 [facility] mmol/L [facility] BE Art -1.7 -3.0 - 3.0 [facility] mmol/L [facility] Hgb Blood Gas 8.5 (L) 13.7 - [facility] 16.5 g/dL [facility] O2HB Art 93.4 (L) 94.0 - [facility] 97.0 % [facility] COHB Art 0.3 % [facility] Comment: Nonsmokers: 0.5-1.5% COHB Smokers: Variable, but usually less than 10% Toxic: 20-30% COHB Lethal: Greater than 60% COHB METHB Art 1.0 <=1.5 % [facility]AT[facility] Na Whole Blood 118 (Critical) 135 - 145 mmol/L [facility] Comment: Noted by instrument assembly supervisor. K Whole Blood 5.6 (H) 3.5 - 5.0 mmol/L [facility] Comment: Please note: Patients with WBC >100,000 may have falsely elevated Potassium levels. Contact the Clinical Chemistry L aboratory if there are any questions. ICa Whole Blood 1.11 (L) 1.15 - 1.33 mmol/L [facility] Comment: Note: ??Total bilirubin higher than 20 m g/dL may lead to falsely low ionized calcium. CL Whole Blood 94 (L) 98 - 107 mmol/L [facility] Gluc Whole Bld 136 65 - 199 mg/dL [facility] Comment: Diabetes: >=200 mg/dL plus symp toms. Lactate WB 1.4 0.5 - 2.2 mmol/L [facility] LABORATORY FIO2 Art 21 % [facility] PF Ratio Art 386 [facility] LABORATORY Specimen Anatomical Collection Method Collection Time Receive d Time (Source) Location / / Volume Laterality Blood 02/07/2022 12:52 02/07/2022 AM EDT 12:52 AM EDT Jayme Armstrong MD CHEMISTRY ORDERABLES Performing Organization Address City/State/ZIP [place] [address] (ABNORMAL) Basic Metabolic Panel (non-fasting) (02/07/2022 12:47 AM EDT) P athologist Signature Glucose Lvl 136 65 - 199 [facility] mg/dL [facility] Comment: Diabetes: >=200 mg/dL plus symp toms BUN 38 (H) 10 - 20 mg/dL [facility] Creatinine 3.43 (H) 0.80 - 1.50 mg/dL [facility] LABORATORY Comment: result rechecked-sf Sodium 125 (L) 135 - 145 mmol/L [facility] Potassium 5.8 (H) 3.5 - 5.0 mmol/L [facility] Comment: Please note: ??Patients with WBC >100,00 0 may have falsely elevated Potassium levels. ??For accurate Potassium quantif ication in these patients send serum separator tube (gold top) for subsequent determinations. ??Contact the Clinical Chemistry Laboratory if there are any qu estions. Chloride 94 (L) 98 - 107 mmol/L [facility] CO2 22 22 - 31 mmol/L [facility] Anion Gap 9 5 - 15 mmol/L [facility] Calcium 7.6 (L) 8.5 - 10.5 mg/dL [facility] Comment: result rechecked-sf Estimated GFR 24 (L) >=60 mL/min/1.73 m?? [facility] Comment: This patient's estimated [...] Organization Address City/State/[place] [address] (ABNORMAL) Phosphorus (02/07/2022 12:47 AM EDT) P athologist Signature Phosphorus 5.0 (H) 2.5 - 4.5 [facility] mg/dL [facility] Specimen Anatomical Collection Method Collection Time Receive d Time (Source) Location / / Volume Laterality Blood 02/07/2022 12:47 02/07/2022 1:02 AM EDT AM EDT Resulting Agency Comment Spec In Lab Gela Novak MD CHEMISTRY ORDERABLES Performing Organization Address City/State/ZIP Code Phon e Number [address] Magnesium (02/07/2022 12:47 AM EDT) P athologist Signature Magnesium 0.84 0.69 - 1.07 [facility] mmol/L [facility] Specimen Anatomical Collection Method Collection Time Receive d Time (Source) Location / / Volume Laterality Blood 02/07/2022 12:47 02/07/2022 1:02 AM EDT AM EDT Resulting Agency Comment Spec In Lab Gela Novak MD CHEMISTRY ORDERABLES Performing Organization Address City/[facility] [place] [address] Fibrinogen (02/06/2022 11:11 PM EDT) athologist Signature Fibrinogen 362 200 - 393 [facility] mg/dL [facility] Comment: A fibrinogen level >100 mg/dL is adequat e for hemostasis in most patients without underlying bleeding disorders. Specimen Anatomical Collection Method Collection Time Receive d Time (Source) Location / / Volume Laterality Blood 02/06/2022 11:11 02/06/2022 PM EDT 11:15 PM EDT Resulting Agency Comment Spec In Lab Jeanette Escamilla APRN HEMATOLOGY ORDERABLES Performing Organization Address City/[facility]/ZIP [place] [address] Prothrombin Time (02/06/2022 11:11 PM EDT) P athologist Signature PT 11.0 9.4 - 12.5 [facility] LABORATORY INR 1.0 [facility] Comment: An [...] Agency Comment Spec In Lab Jeanette Escamilla INDUSTRIAL PAINTER HEMATOLOGY ORDERABLES Performing Organization Address City/[facility]/[place] [address] (ABNORMAL) Platelet count (02/06/2022 11:11 PM EDT) athologist Signature Platelets 125 (L) 145 - 357 [facility] x10(3)/[facility] LABORATORY Plat Immature 5.3 0.0 - 7.4 [facility] % % [facility] Comment: Limitation of the Immature Platelet Frac tion (IPF)-May be less reliable when the platelet count is less than 74g191/u L due to statistical imprecision. The IPF [...] in a decreased state of production. References: [employer] The Clinical Value of the Immature Platelet Fraction (IPF) in Cell Recovery Document Number [id number] 12/2010 [employer] The Role of the Imm ature Platelet Fraction (IPF) in the Differential Diagnosis of Thrombocytopen ia, Document [id number] V012/10/13 P012/12 Specimen Anatomical Collection Method Collection Time Receive d Time (Source) Location / / Volume Laterality Blood 02/06/2022 11:11 02/06/2022 PM EDT 11:15 PM EDT Resulting Agency Comment Spec In Lab Jeanette Escamilla INDUSTRIAL PAINTER HEMATOLOGY ORDERABLES Performing Organization Address City/State/ZIP [place] [address] (ABNORMAL) Hematocrit (02/06/2022 11:11 PM EDT) athologist Signature Hematocrit 20.8 (L) 40.5 [facility] % [facility] Specimen Anatomical Collection Method Collection Time Receive d Time (Source) Location / / Volume Laterality Blood 02/06/2022 11:11 02/06/2022 PM EDT 11:15 PM EDT Resulting Agency Comment Spec In Lab Jeanette Escamilla APRN HEMATOLOGY ORDERABLES Performing Organization Address City/[facility]/ZIP [place] [address] (ABNORMAL) Hemoglobin (02/06/2022 11:11 PM EDT) athologist Signature Hemoglobin 7.7 (L) 13.7 - 16.5 [facility]/dL [facility] Specimen Anatomical Collection Method Collection Time Receive d Time (Source) Location / / Volume Laterality Blood 02/06/2022 11:11 02/06/2022 PM EDT 11:15 PM EDT Resulting Agency Comment Spec In Lab Jeanette Escamilla APRN HEMATOLOGY ORDERABLES Performing Organization Address City/[facility]/ZIP [place] [address] (ABNORMAL) Sodium (02/06/2022 11:11 PM EDT) athologist Signature Sodium 124 (L) 135 - 145 [facility] mmol/L [facility] Specimen Anatomical Collection Method Collection Time Receive d Time (Source) Location / / Volume Laterality Blood 02/06/2022 11:11 02/06/2022 PM EDT 11:15 PM EDT Resulting Agency Comment Spec In Lab Parrish Betancourt MD CHEMISTRY ORDERABLES Performing Organization Address City/[facility]/ZIP [place] [address] (ABNORMAL) Calcium Ionized Whole Blood, HONORIO (02/06/2022 10:51 PM EDT) Analysis Performed At Patho logist Time Signature pH Honorio 7.44 (H) 7.32 - [facility] 7.42 [facility] ICa Whole 1.07 (L) 1.15 - [facility] Blood 1.33 [facility] mmol/L [facility] Comment: Note: ??Total bilirubin higher than 20 m g/dL may lead to falsely low ionized calcium. Specimen Anatomical Collection Method Collection Time Receive d Time (Source) Location / / Volume Laterality Blood ARTERIAL LINE / 02/06/2022 10:51 02/07/20 22 Unknown PM EDT 11:06 PM EDT Resulting Agency Comment Spec In Lab Angelina Reynoso MD CHEMISTRY ORDERABLES Performing Organization Address City/[facility]/ZIP [facility] [place] [address] Fibrinogen (02/06/2022 10:20 PM EDT) athologist Signature Fibrinogen 351 200 - 393 [facility] mg/dL [facility] Comment: A fibrinogen level >100 mg/dL is adequat e for hemostasis in most patients without underlying bleeding disorders. Specimen Anatomical Collection Method Collection Time Receive d Time (Source) Location / / Volume Laterality Blood 02/06/2022 10:20 02/06/2022 PM EDT 11:10 PM EDT Resulting Agency Comment Spec In Lab Jeanette Escamilla APRN HEMATOLOGY ORDERABLES Performing Organization Address City/[facility] [place] [address] Prothrombin Time (02/06/2022 10:20 PM EDT) athologist Signature PT 11.1 9.4 - 12.5 [facility] LABORATORY INR 1.0 [facility] LABOR[facility]ORY Comment: An [...] Agency Comment Spec In Lab Jeanette Escamilla INDUSTRIAL PAINTER HEMATOLOGY ORDERABLES Performing Organization Address City/State/ZIP [place] [address] (ABNORMAL) Platelet count (02/06/2022 10:20 PM EDT) P athologist Signature Platelets 126 (L) 145 - 357 [facility] x10(3)/[facility] LABORATORY Plat Immature 5.9 0.0 - 7.4 [facility] % % [facility] Comment: Limitation of the Immature Platelet Frac tion (IPF)-May be less reliable when the platelet count is less than 92o527/u L due to statistical imprecision. The IPF [...] in a decreased state of production. References: [employer] The Clinical Value of the Immature Platelet Fraction (IPF) in Cell Recovery Document Number [id number] 12/2010 [employer] The Role of the Imm ature Platelet Fraction (IPF) in the Differential Diagnosis of Thrombocytopen ia, Document [id number] V05 P0514 Specimen Anatomical Collection Method Collection Time Receive d Time (Source) Location / / Volume Laterality Blood 02/06/2022 10:20 02/06/2022 PM EDT 11:10 PM EDT Resulting Agency Comment Spec In Lab Jeanette Escamilla INDUSTRIAL PAINTER HEMATOLOGY ORDERABLES Performing Organization Address City/State/ZIP [place] [address] (ABNORMAL) Hematocrit (02/06/2022 10:20 PM EDT) athologist Signature Hematocrit 20.5 (L) 40.5 - [facility] 48.5 % [facility] Specimen Anatomical Collection Method Collection Time Receive d Time (Source) Location / / Volume Laterality Blood 02/06/2022 10:20 02/06/2022 PM EDT 11:10 PM EDT Resulting Agency Comment Spec In Lab Jeanette Escamilla APRN HEMATOLOGY ORDERABLES Performing Organization Address City/[facility]/ZIP Code Phon e Number [address] (ABNORMAL) Hemoglobin (02/06/2022 10:20 PM EDT) athologist Signature Hemoglobin 7.6 (L) 13.7 - 16.5 [facility] g/dL [facility] Specimen Anatomical Collection Method Collection Time Receive d Time (Source) Location / / Volume Laterality Blood 02/06/2022 10:20 02/06/2022 PM EDT 11:10 PM EDT Resulting Agency Comment Spec In Lab Jeanette Escamilla APRN HEMATOLOGY ORDERABLES Performing Organization Address City/[facility]/ZIP Code Phon e Number [address] Fibrinogen (02/06/2022 7:45 PM EDT) athologist Signature Fibrinogen 321 200 - 393 [facility] mg/dL [facility] Comment: A fibrinogen level >100 mg/dL is adequat e for hemostasis in most patients without underlying bleeding disorders. Specimen Anatomical Collection Method Collection Time Receive d Time (Source) Location / / Volume Laterality Blood 02/06/2022 7:45 PM 7:56 EDT PM EDT Resulting Agency Comment Spec In Lab Jeanette Escamilla APRN HEMATOLOGY ORDERABLES Performing Organization Address City/[facility]/ZIP Code Phon e Number [address] Prothrombin Time (02/06/2022 7:45 PM EDT) athologist Signature PT 11.0 9.4 - 12.5 [facility] LABORATORY INR 1.0 [facility] LABOR[facility]ORY Comment: An [...] Organization Address City/State/[place] [address] (ABNORMAL) Platelet count (02/06/2022 7:45 PM EDT) P athologist Signature Platelets 137 (L) 145 - 357 [facility] x10(3)/[facility] LABORATORY Plat Immature 4.8 0.0 - 7.4 [facility] % % [facility] Comment: Limitation of the Immature Platelet Frac tion (IPF)-May be less reliable when the platelet count is less than 99m119/u L due to statistical imprecision. The IPF [...] in a decreased state of production. References: [employer] The Clinical Value of the Immature Platelet Fraction (IPF) in Cell Recovery Document Number [id number] 12/2010 [employer] The Role of the Imm ature Platelet Fraction (IPF) in the Differential Diagnosis of Thrombocytopen ia, Document [id number] V05// P05/14 Specimen Anatomical Collection Method Collection Time Receive d Time (Source) Location / / Volume Laterality Blood 02/06/2022 7:45 PM 2 7:56 EDT PM EDT Resulting Agency Comment Spec In Lab Jeanette Escamilla INDUSTRIAL PAINTER HEMATOLOGY ORDERABLES Performing Organization Address City/[facility]/ZIP [facility] [place] [address] (ABNORMAL) Hematocrit (02/06/2022 7:45 PM EDT) P athologist Signature Hematocrit 22.1 (L) 40.5 - [facility] 48.5 % [facility] Specimen Anatomical Collection Method Collection Time Receive d Time (Source) Location / / Volume Laterality Blood 02/06/2022 7:45 PM 2 7:56 EDT PM EDT Resulting Agency Comment Spec In Lab Jeanette Escamilla INDUSTRIAL PAINTER HEMATOLOGY ORDERABLES Performing Organization Address City/[facility]/ZIP [place] [address] (ABNORMAL) Hemoglobin (02/06/2022 7:45 PM EDT) P athologist Signature Hemoglobin 8.1 (L) 13.7 - 16.5 [facility]/dL [facility] Specimen Anatomical Collection Method Collection Time Receive d Time (Source) Location / / Volume Laterality Blood 02/06/2022 7:45 PM 2 7:56 EDT PM EDT Resulting Agency Comment Spec In Lab Jeanette Escamilla INDUSTRIAL PAINTER HEMATOLOGY ORDERABLES Performing Organization Address City/[facility]/ZIP [facility] [place] [address] (ABNORMAL) Electrolytes panel (02/06/2022 7:45 PM EDT) P athologist Signature Sodium 123 (L) 135 - 145 [facility] mmol/L [facility] Potassium 6.1 3.5 - 5.0 [facility] (Critical) mmol/L [facility] Comment: Called by: renuka, Read back by: dixie diego, Date/Time:02/06/22 20:32. Please note: ??Patients with WBC >100,00 0 may have falsely elevated Potassium levels. ??For accurate Potassium quantif ication in these patients send serum separator tube (gold top) for subsequent determinations. ??Contact the Clinical Chemistry Laboratory if there are any qu estions. Chloride 94 (L) 98 - 107 mmol/L [facility]OR[facility]ORY CO2 21 (L) 22 - 31 mmol/L [facility] Anion Gap 8 5 - 15 mmol/L [facility] LABORATORY Specimen Anatomical Collection Method Collection Time Receive d Time (Source) Location / / Volume Laterality Blood 02/06/2022 7:45 PM 7:56 EDT PM EDT Resulting Agency Comment Spec In Lab Angelina Reynoso MD CHEMISTRY ORDERABLES Performing Organization Address City/State/[place] [address] (ABNORMAL) BLOOD GAS 2 ARTERIAL (02/06/2022 7:44 PM EDT) Analysis Performed At Patho logist Time Signature pH Art 7.44 7.35 - [facility] 7.45 [facility] pCO2 Art 31 (L) 35 - 45 [facility] mmHg [facility] pO2 Art 86 85 - 104 [facility] LABORATORY HCO3 Art 20.4 20.0 - [facility] 26.0 [facility] mmol/L [facility] LABORATORY BE Art -3.7 (L) -3.0 - 3.0 [facility] mmol/L [facility] Hgb Blood Gas 9.2 (L) 13.7 - [facility] 16.5 g/dL [facility] O2HB Art 94.1 94.0 - [facility] 97.0 % [facility] COHB Art 0.3 % [facility] Comment: Nonsmokers: 0.5-1.5% COHB Smokers: Variable, but usually less than 10% Toxic: 20-30% COHB Lethal: Greater than 60% COHB METHB Art 0.9 <=1.5 % [facility] LABORAT[facility] Na Whole Blood 118 (Critical) 135 - 145 mmol/L [facility] Comment: Noted by instrument assembly supervisor. K Whole Blood 5.8 (H) 3.5 - 5.0 mmol/L [facility] [facility] Comment: Please note: Patients with WBC >100,000 may have falsely elevated Potassium levels. Contact the Clinical Chemistry L aboratory if there are any questions. ICa Whole Blood 1.03 (L) 1.15 - 1.33 mmol/L [facility] Comment: Note: ??Total bilirubin higher than 20 m g/dL may lead to falsely low ionized calcium. CL Whole Blood 94 (L) 98 - 107 mmol/L [facility] Gluc Whole Bld 143 65 - 199 mg/dL [facility] Comment: Diabetes: >=200 mg/dL plus symp toms. Lactate WB 1.5 0.5 - 2.2 mmol/L [facility] FIO2 Art 21 % [facility] PF Ratio Art 410 [facility] Specimen Anatomical Collection Method Collection Time Receive d Time (Source) Location / / Volume Laterality Blood 02/06/2022 7:44 PM 2 7:44 EDT PM EDT Jayme Armstrong MD CHEMISTRY ORDERABLES Performing Organization Address City/State/[place] [address] (ABNORMAL) BLOOD GAS 2 ARTERIAL (02/06/2022 5:47 PM EDT) Analysis Performed At Patho logist Time Signature pH Art 7.42 7.35 - [facility] 7.45 [facility] pCO2 Art 30 (L) 35 - 45 [facility] mmHg [facility] pO2 Art 68 (L) 85 - 104 [facility]ATORY HCO3 Art 19.2 (L) 20.0 - [facility] 26.0 [facility] mmol/[facility] BE Art -5.2 (L) -3.0 - 3.0 [facility] mmol/L [facility] Hgb Blood Gas 9.3 (L) 13.7 - [facility] 16.5 g/dL [facility] O2HB Art 91.8 (L) 94.0 - [facility] 97.0 % [facility] COHB Art 0.3 % [facility] Comment: Nonsmokers: 0.5-1.5% COHB Smokers: Variable, but usually less than 10% Toxic: 20-30% COHB Lethal: Greater than 60% COHB METHB Art 0.9 <=1.5 % [facility] Na Whole Blood 117 (Critical) 135 - 145 mmol/L [facility] Comment: Noted by instrument assembly supervisor. K Whole Blood 6.0 (H) 3.5 - 5.0 mmol/L [facility] Comment: Please note: Patients with WBC >100,000 may have falsely elevated Potassium levels. Contact the Clinical Chemistry L aboratory if there are any questions. ICa Whole Blood 0.98 (L) 1.15 - 1.33 mmol/L [facility] Comment: Note: ??Total bilirubin higher than 20 m g/dL may lead to falsely low ionized calcium. CL Whole Blood 93 (L) 98 - 107 mmol/L [facility] Gluc Whole Bld 131 65 - 199 mg/dL [facility] Comment: Diabetes: >=200 mg/dL plus symp toms. Lactate WB 1.8 0.5 - 2.2 mmol/L [facility] FIO2 Art 21 % [facility] PF Ratio Art 324 [facility] Specimen Anatomical Collection Method Collection Time Receive d Time (Source) Location / / Volume Laterality Blood 02/06/2022 5:47 PM 2 5:47 EDT PM EDT Jayme Armstrong MD CHEMISTRY ORDERABLES Performing Organization Address City/State/[place] [address] POCT Glucose (02/06/2022 5:44 PM EDT) athologist Signature POC Glucose 153 65 - 199 [facility] mg/dL [facility] Comment: Supplemental ranges: <140 mg/dL before meals <180 mg/dL all other times of the day Specimen Anatomical Collection Method Collection Time Receive d Time (Source) Location / / Volume Laterality Blood 02/06/2022 5:44 PM 2 5:44 EDT PM EDT Jayme Armstrong MD POINT OF CARE TEST ORDERABLE S Performing Organization Address [facility]/ZIP [place] [address] Fibrinogen (02/06/2022 4:33 PM EDT) P athologist Signature Fibrinogen 300 200 - 393 [facility] mg/dL [facility] Comment: OR Result called by ?? [...] Armstrong MD HEMATOLOGY ORDERABLES Performing Organization Address [facility] Code Phon e Number [address] APTT (02/06/2022 4:33 PM EDT) P athologist Signature PTT 25 25 - 37 sec [facility] Comment: OR [...] Organization Address City/State/ZIP [place] [address] Prothrombin Time (02/06/2022 4:33 PM EDT) athologist Signature PT 11.2 9.4 - 12.5 [facility] Comment: OR Result called by ?? PARSAD OR Result s read back by: ? Divina Otero at 2022-02-06 16:54:39 INR 1.0 [facility] Comment: OR Result [...] MD HEMATOLOGY ORDERABLES Performing Organization Address City/[facility]/ZIP [place] [address] (ABNORMAL) Phosphorus (02/06/2022 4:20 PM EDT) athologist Signature Phosphorus 7.4 (H) 2.5 - 4.5 [facility] mg/dL [facility] Specimen Anatomical Collection Method Collection Time Receive d Time (Source) Location / / Volume Laterality Blood Venous Draw / 02/06/2022 4:20 PM 02/07/20 22 6:05 Unknown EDT PM EDT Resulting Agency Comment Spec In Lab Jeanette Escamilla APRN CHEMISTRY ORDERABLES Performing Organization Address City/[facility]/ZIP [place] [address] Magnesium (02/06/2022 4:20 PM EDT) P athologist Signature Magnesium 0.93 0.69 - 1.07 [facility] mmol/L [facility] Specimen Anatomical Collection Method Collection Time Receive d Time (Source) Location / / Volume Laterality Blood Venous Draw / 02/06/2022 4:20 PM 02/07/20 6:05 Unknown EDT PM EDT Resulting Agency Comment Spec In Lab Jeanette Escamilla APRN CHEMISTRY ORDERABLES Performing Organization Address City/State/[place] [address] (ABNORMAL) Differential, Automated (02/06/2022 4:20 PM EDT) Patholo gist Method Time Signature Neutrophils % 56.4 % [facility] Neutr Abs (ANC) 13.74 (H) 1.70 - [facility] 6.10 [facility] x10(3)/[facility] LABORATORY Lymphocytes % 9.1 % [facility] Lymphocytes Abs 2.2 0.9 - 3.2 [facility] x10(3)/[facility] LABORATORY Monocytes % 13.3 % [facility] Monocyte Abs 3.2 (H) 0.3 - 0.9 [facility] x10(3)/[facility] LABORATORY Eosinophils % 1.1 % [facility] Eosinophils Abs 0.3 0.0 - 0.4 [facility] x10(3)/[facility] LABORATORY Basophils % 1.1 % [facility] Basophils Abs 0.3 (H) 0.0 - 0.1 [facility] x10(3)/[facility] LABORATORY Immature Gran % 19.00 % [facility] Comment: Immature granulocytes(IG's)percentage an d absolute count will include metamyelocytes, myelocytes, and promyelo cytes. Blood smears from CBCs yielding IG's will be scanned manually for concor dance. If this scan disagrees with the automated IG or if promyelocytes are not ed, a manual differential will be performed. Gemini Gran Abs 4.64 (H) 0.00 - 0.04 x10(3)/[facility] LABORATORY Specimen Anatomical Collection Method Collection Time Receive d Time (Source) Location / / Volume Laterality Blood 02/06/2022 4:20 PM 4:33 EDT PM EDT Resulting Agency Comment Spec In Lab Jayme Armstrong MD HEMATOLOGY ORDERABLES Performing Organization Address City/State/[place] [address] (ABNORMAL) Hemogram (02/06/2022 4:20 PM EDT) athologist Signature WBC 24.4 (H) 4.0 - 9.5 [facility] x10(3)/[facility] LABORATORY RBC 2.87 (L) 4.58 - [facility] 5.54 [facility] x10(6)/[facility] LABORATORY Hemoglobin 8.5 (L) 13.7 - [facility] 16.5 g/dL [facility] Hematocrit 23.4 (L) 40.5 - [facility] 48.5 % [facility] Comment: This result has been called to DIVINA MORA by Tamara Hernandez on 02 06 2022 at 1653, and has been read back. MCV 81.5 (L) 82.9 - 93.1 [facility] LABORATORY MCH 29.6 27.5 - 32.1 pg [facility] MCHC 36.3 (H) 32.0 - 35.7 g/dL [facility] Platelets 110 (L) 145 - 357 x10(3)/[facility] LABORATORY RDWSD 39.9 36.0 - 45.0 [facility] LABORATORY RDWCV 13.9 (H) 11.4 - 13.8 % [facility] MPV 9.7 7.6 - 12.9 [facility] LABORATORY nRBC % Auto 2.0 % [facility] nRBC Abs Auto 0.500 (H) 0.000 - 0.000 x10(3)/[facility] LABORATORY Specimen Anatomical Collection Method Collection Time Receive d Time (Source) Location / / Volume Laterality Blood 02/06/2022 4:20 PM 2 4:33 EDT PM EDT Resulting Agency Comment Spec In Lab Jayme Armstrong MD HEMATOLOGY ORDERABLES Performing Organization Address City/State/[place] [address] (ABNORMAL) Basic Metabolic Panel (non-fasting) (02/06/2022 4:20 PM EDT) athologist Signature Glucose Lvl 117 65 - 199 [facility] mg/dL [facility] Comment: Diabetes: >=200 mg/dL plus symp toms BUN 47 (H) 10 - 20 mg/dL [facility] Creatinine 4.73 (H) 0.80 - 1.50 mg/dL [facility] Sodium 122 (L) 135 - 145 mmol/L [facility] Potassium 6.1 (Critical) 3.5 - 5.0 mmol/L [facility] Comment: Called by [facility]/Read back by Virgie gunter/02/06/2022 @ 4821 Please note: ??Patients with WBC >100,00 0 may have falsely elevated Potassium levels. ??For accurate Potassium quantif ication in these patients send serum separator tube (gold top) for subsequent determinations. ??Contact the Clinical Chemistry Laboratory if there are any qu estions. Chloride 92 (L) 98 - 107 mmol/L [facility] CO2 21 (L) 22 - 31 mmol/L [facility] Anion Gap 9 5 - 15 mmol/L [facility] Calcium 6.7 (Critical) 8.5 - 10.5 mg/dL [facility] Comment: Called by [facility]/Read back by Soila Castle/02/06/2022 @ 1713 Estimated GFR 16 (L) >=60 mL/min/1.73 m?? [facility] Comment: This patient's estimated [...] Organization Address City/State/[place] [address] (ABNORMAL) BLOOD GAS 2 ARTERIAL (02/06/2022 3:54 PM EDT) Analysis Performed At Patho logist Time Signature pH Art 7.37 7.35 - [facility] 7.45 [facility] pCO2 Art 38 35 - 45 [facility] mmHg [facility] pO2 Art 325 (H) 85 - 104 [facility] LABORATORY HCO3 Art 21.8 20.0 - [facility] 26.0 [facility] mmol/L [facility] BE Art -3.4 (L) -3.0 - 3.0 [facility] mmol/L [facility] Hgb Blood Gas 8.8 (L) 13.7 - [facility] 16.5 g/dL [facility] O2HB Art 98.0 (H) 94.0 - [facility] 97.0 % [facility] COHB Art 1.1 % [facility] Comment: Nonsmokers: 0.5-1.5% COHB Smokers: Variable, but usually less than 10% Toxic: 20-30% COHB Lethal: Greater than 60% COHB METHB Art 0.3 <=1.5 % [facility] Na Whole Blood 117 (Critical) 135 - 145 mmol/L [facility] Comment: Critical notified to Amber Ray by ins trument plastic cnc machine operator immediately following run time. K Whole Blood 5.7 (H) 3.5 - 5.0 mmol/L [facility] Comment: Please note: Patients with WBC >100,000 may have falsely elevated Potassium levels. Contact the Clinical Chemistry L aboratory if there are any questions. ICa Whole Blood 1.00 (L) 1.15 - 1.33 mmol/L [facility] Comment: Note: ??Total bilirubin higher than 20 m g/dL may lead to falsely low ionized calcium. CL Whole Blood 93 (L) 98 - 107 mmol/L [facility] Gluc Whole Bld 115 65 - 199 mg/dL [facility] Comment: Diabetes: >=200 mg/dL plus symp toms. Lactate WB 1.4 0.5 - 2.2 mmol/L [facility] Specimen Anatomical Collection Method Collection Time Receive d Time (Source) Location / / Volume Laterality Blood 02/06/2022 3:54 PM 3:54 EDT PM EDT Jayme Armstrong MD CHEMISTRY ORDERABLES Performing Organization Address City/State/[place] [address] IR Arteriogram Lower Extremity [...] 2. 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 Monitor for Right [...] General an esthesia Anesthesia/sedation administered by: [facility] Total intra-service sedation time (minut es): Please refer to anesthesia notes for further details. Access Local anesthesia was administered. The v essel was sonographically evaluated and judged to be patent. Real time ultrasoun d was used to visualize needle entry into the vessel and a permanent image wa s stored. A 5 Lebanese sheath was placed. Vessel accessed: Right common femoral ar timo Access technique: Micropuncture set with 21 gauge needle Left pelvic angiography The left pelvic arterial system was cath eterized using a 150 cm 0.035 3J guidewire, 5 Lebanese Berenstein catheter, 3 Lebanese renegade STC microcatheter and wire. Vessel catheterized: [...] who have questions please contact the health career technical education teacher that requested your imaging first. ? Narrative [...] 2. 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 Monitor for Right [...] anesthesia/sedation: General an esthesia Anest[facility] Total intra-service sedation time (minut es): Please refer to anesthesia notes for further details. Access Local anesthesia was administered. The v essel was sonographically evaluated and judged to be patent. Real time ultrasoun d was used to visualize needle entry into the vessel and a permanent image wa s stored. A 5 Lebanese sheath was placed. Vessel accessed: Right common femoral ar timo Access technique: Micropuncture set with 21 gauge needle Left pelvic angiography The left pelvic arterial system was cath eterized using a 150 cm 0.035 3J guidewire, 5 Lebanese Berenstein catheter, 3 Lebanese renegade STC microcatheter and wire. Vessel catheterized: [...] ho have questions please contact the health career technical education teacher that requested your imaging first. Jeanette Escamilla APRN IMG IR ORDERABLES POCT Glucose (02/06/2022 12:16 PM EDT) athologist Signature POC Glucose 167 65 - 199 [facility] Comment: Supplemental ranges: <140 mg/dL before meals <180 mg/dL all other times of the day Specimen Anatomical Collection Method Collection Time Receive d Time (Source) Location / / Volume Laterality Blood 02/06/2022 12:16 02/06/2022 PM EDT 12:16 PM EDT Jayme Armstrong MD POINT OF CARE TEST ORDERABLE S Performing Organization Address City/[facility]/ZIP [place] [address] Fibrinogen (02/06/2022 11:30 AM EDT) athologist Signature Fibrinogen 279 200 - 393 [facility] Comment: A fibrinogen level >100 mg/dL is adequat e for hemostasis in most patients without underlying bleeding disorders. Specimen Anatomical Collection Method Collection Time Receive d Time (Source) Location / / Volume Laterality Blood 02/06/2022 11:30 02/06/2022 AM EDT 11:36 AM EDT Resulting Agency Comment Spec In Lab Jeanette Escamilla APRN HEMATOLOGY ORDERABLES Performing Organization Address City/[facility]/ZIP [facility] [place] [address] Prothrombin Time (02/06/2022 11:30 AM EDT) athologist Signature PT 11.6 9.4 - 12.5 [facility] LABORATORY INR 1.0 [facility] Comment: An [...] Organization Address City/State/[place] [address] Platelet count (02/06/2022 11:30 AM EDT) athologist Signature Platelets 164 145 - 357 [facility] x10(3)/[facility] LABORATORY Plat Immature 4.2 0.0 - 7.4 [facility] % % [facility] Comment: Limitation of the Immature Platelet Frac tion (IPF)-May be less reliable when the platelet count is less than 53v584/u L due to statistical imprecision. The IPF [...] in a decreased state of production. References: [employer] The Clinical Value of the Immature Platelet Fraction (IPF) in Cell Recovery Document Number 10-1143 12/2010 [employer] The Role of the Imm ature Platelet Fraction (IPF) in the Differential Diagnosis of Thrombocytopen ia, Document MKT-[id number] V05/07/14 P014 Specimen Anatomical Collection Method Collection Time Receive d Time (Source) Location / / Volume Laterality Blood 02/06/2022 11:30 02/06/2022 AM EDT 11:36 AM EDT Resulting Agency Comment Spec In Lab Jeanette Escamilla APRN HEMATOLOGY ORDERABLES Performing Organization Address City/[facility]/ZIP [place] [address] (ABNORMAL) Hematocrit (02/06/2022 11:30 AM EDT) P athologist Signature Hematocrit 24.7 (L) 40.5 - [facility] 48.5 % [facility] Specimen Anatomical Collection Method Collection Time Receive d Time (Source) Location / / Volume Laterality Blood 02/06/2022 11:30 02/06/2022 AM EDT 11:36 AM EDT Resulting Agency Comment Spec In Lab Jeanette Escamilla APRN HEMATOLOGY ORDERABLES Performing Organization Address City/[facility]/ZIP [place] [address] (ABNORMAL) Hemoglobin (02/06/2022 11:30 AM EDT) P athologist Signature Hemoglobin 8.7 (L) 13.7 - 16.5 [facility] g/dL [facility] Specimen Anatomical Collection Method Collection Time Receive d Time (Source) Location / / Volume Laterality Blood 02/06/2022 11:30 02/06/2022 AM EDT 11:36 AM EDT Resulting Agency Comment Spec In Lab Jeanette Escamilla APRN HEMATOLOGY ORDERABLES Performing Organization Address City/[facility]/ZIP [place] [address] (ABNORMAL) Sodium (02/06/2022 11:30 AM EDT) P athologist Signature Sodium 122 (L) 135 - 145 [facility] mmol/L [facility] Specimen Anatomical Collection Method Collection Time Receive d Time (Source) Location / / Volume Laterality Blood 02/06/2022 11:30 02/06/2022 AM EDT 11:36 AM EDT Resulting Agency Comment Spec In Lab Parrish Betancourt MD CHEMISTRY ORDERABLES Performing Organization Address City/[facility]/ZIP [place] [address] Prepare RBC (02/06/2022 10:35 AM EDT) P athologist Signature Dispensed? Yes [facility] Specimen Anatomical Collection Method Collection Time Receive d Time (Source) Location / / Volume Laterality Blood 02/06/2022 10:35 02/06/2022 AM EDT 10:32 AM EDT Jeanette Escamilla APRN BLOOD BANK ORDERABLES Performing Organization Address City/[facility]/ZIP [place] [address] Fibrinogen (02/06/2022 9:35 AM EDT) P athologist Signature Fibrinogen 279 200 - 393 [facility] mg/dL [facility] Comment: A fibrinogen level >100 mg/dL is adequat e for hemostasis in most patients without underlying bleeding disorders. Specimen Anatomical Collection Method Collection Time Receive d Time (Source) Location / / Volume Laterality Blood 02/06/2022 9:35 AM 2 9:44 EDT AM EDT Resulting Agency Comment Spec In Lab Jeanette Escamilla APRN HEMATOLOGY ORDERABLES Performing Organization Address City/[facility]/ZIP [place] [address] Prothrombin Time (02/06/2022 9:35 AM EDT) P athologist Signature PT 11.4 9.4 - 12.5 [facility] LABORATORY INR 1.0 [facility] Comment: An [...] Comment Spec In Lab Jeanette E Escamilla INDUSTRIAL PAINTER HEMATOLOGY ORDERABLES Performing Organization Address City/State/[place] [address] Platelet count (02/06/2022 9:35 AM EDT) athologist Signature Platelets 174 145 - 357 [facility] x10(3)/[facility] LABORATORY Plat Immature 4.6 0.0 - 7.4 [facility] % % [facility] Comment: Limitation of the Immature Platelet Frac tion (IPF)-May be less reliable when the platelet count is less than 19z656/u L due to statistical imprecision. The IPF [...] in a decreased state of production. References: [employer] The Clinical Value of the Immature Platelet Fraction (IPF) in Cell Recovery Document Number [id number] 12/2010 [employer] The Role of the Imm ature Platelet Fraction (IPF) in the Differential Diagnosis of Thrombocytopen ia, Document [id number] V05 P012/12 Specimen Anatomical Collection Method Collection Time Receive d Time (Source) Location / / Volume Laterality Blood 02/06/2022 9:35 AM 9:44 EDT AM EDT Resulting Agency Comment Spec In Lab Jeanette Escamilla INDUSTRIAL PAINTER HEMATOLOGY ORDERABLES Performing Organization Address City/State/[place] [address] (ABNORMAL) Hematocrit (02/06/2022 9:35 AM EDT) athologist Signature Hematocrit 25.9 (L) 40.5 - [facility] 48.5 % [facility] Specimen Anatomical Collection Method Collection Time Receive d Time (Source) Location / / Volume Laterality Blood 02/06/2022 9:35 AM 2 9:44 EDT AM EDT Resulting Agency Comment Spec In Lab Jeanette Martinez Andi AVENDAÑO HEMATOLOGY ORDERABLES Performing Organization Address City/[facility]/ZIP [place] [address] (ABNORMAL) Hemoglobin (02/06/2022 9:35 AM EDT) P athologist Signature Hemoglobin 9.0 (L) 13.7 - 16.5 [facility] g/dL [facility] Specimen Anatomical Collection Method Collection Time Receive d Time (Source) Location / / Volume Laterality Blood 02/06/2022 9:35 AM 2 9:44 EDT AM EDT Resulting Agency Comment Spec In Lab Jeanette Juan Andi AVENDAÑO HEMATOLOGY ORDERABLES Performing Organization Address City/[facility]/ZIP [place] [address] Transfuse RBC (02/06/2022 9:29 [...] Signature pH Art 7.46 (H) 7.35 - [facility] 7.45 [facility] pCO2 Art 31 (L) 35 - 45 [facility] mmHg [facility] pO2 Art 89 85 - 104 [facility] LABORATORY HCO3 Art 21.5 20.0 - [facility] 26.0 [facility] mmol/[facility] LABORAT[facility] BE Art -2.3 -3.0 - 3.0 [facility] mmol/L [facility] LABORATORY Hgb Blood Gas 9.5 (L) 13.7 - [facility] 16.5 g/dL [facility] O2HB Art 95.5 94.0 - [facility] 97.0 % [facility] LABORATORY COHB Art 0.3 % [facility] LABORATORY Comment: Nonsmokers: 0.5-1.5% COHB Smokers: Variable, but usually less than 10% Toxic: 20-30% COHB Lethal: Greater than 60% COHB METHB Art 0.8 <=1.5 % [facility] LABORATORY Na Whole Blood 115 (Critical) 135 - 145 mmol/L [facility] LABORATORY Comment: Noted by instrument assembly supervisor. K Whole Blood 5.7 (H) 3.5 - 5.0 mmol/L [facility] LABORATORY Comment: Please note: Patients with WBC >100,000 may have falsely elevated Potassium levels. Contact the Clinical Chemistry L aboratory if there are any questions. ICa Whole Blood 0.93 (L) 1.15 - 1.33 mmol/L [facility] LABORATORY Comment: Note: ??Total bilirubin higher than 20 m g/dL may lead to falsely low ionized calcium. CL Whole Blood 92 (L) 98 - 107 mmol/L [facility] LABORATORY Gluc Whole Bld 138 65 - 199 mg/dL [facility] LABORATORY Comment: Diabetes: >=200 mg/dL plus symp toms. Lactate WB 1.7 0.5 - 2.2 mmol/L [facility] LABORATORY FIO2 Art 21 % [facility] LABORATORY PF Ratio Art 424 [facility] LABORATORY Specimen Anatomical Collection Method Collection Time Receive d Time (Source) Location / / Volume Laterality Blood 02/06/2022 9:06 AM 9:06 EDT AM EDT Dunia Han DO CHEMISTRY ORDERABLES Performing Organization Address City/State/[place] [address] (ABNORMAL) Phosphorus (02/06/2022 9:00 AM EDT) P athologist Signature Phosphorus 7.1 (H) 2.5 - 4.5 [facility] [place] mg/dL [facility] LABORATORY Specimen Anatomical Collection Method Collection Time Receive d Time (Source) Location / / Volume Laterality Blood 02/06/2022 9:00 AM 2 9:04 EDT AM EDT Resulting Agency Comment Spec In Lab Angelina Reynoso MD CHEMISTRY ORDERABLES Performing Organization Address City/State/ZIP Code Phon e Number [address] Magnesium (02/06/2022 9:00 AM EDT) P athologist Signature Magnesium 0.99 0.69 - 1.07 [place] mmol/L [facility] LABORATORY Specimen Anatomical Collection Method Collection Time Receive d Time (Source) Location / / Volume Laterality Blood 02/06/2022 9:00 AM 2 9:04 EDT AM EDT Resulting Agency Comment Spec In Lab Angelina Reynoso MD CHEMISTRY ORDERABLES Performing Organization Address City/State/ZIP Code Phon e Number [address] (ABNORMAL) Creatinine (02/06/2022 9:00 AM EDT) Analysis Performed At Patho logist Time Signature Creatinine 4.64 (H) 0.80 - [place] 1.50 mg/dL [facility] LABORAT[facility] Estimated GFR 16 (L) >=60 [facility] [place] mL/min/1.7 [facility] 3 ? [facility] LABORATORY Comment: This patient's estimated [...] MD CHEMISTRY ORDERABLES Performing Organization Address City/[facility]/ZIP Code Phon e Number [address] (ABNORMAL) BUN (02/06/2022 9:00 AM EDT) athologist Signature BUN 44 (H) 10 - 20 [facility] Specimen Anatomical Collection Method Collection Time Receive d Time (Source) Location / / Volume Laterality Blood 02/06/2022 9:00 AM 2 9:04 EDT AM EDT Resulting Agency Comment Spec In Lab Angelina Reynoso MD CHEMISTRY ORDERABLES Performing Organization Address [facility] [place] [address] (ABNORMAL) Electrolytes panel (02/06/2022 9:00 AM EDT) P athologist Signature Sodium 123 (L) 135 - 145 [facility] mmol/L [facility] Potassium 6.0 (H) 3.5 - 5.0 [facility] mmol/L [facility]ORAT[facility] Comment: Please note: ??Patients with WBC >100,00 0 may have falsely elevated Potassium levels. ??For accurate Potassium quantif ication in these patients send serum separator tube (gold top) for subsequent determinations. ??Contact the Clinical Chemistry Laboratory if there are any qu estions. Chloride 91 (L) 98 - 107 mmol/L [facility] LABORATORY CO2 23 22 - 31 mmol/L [facility] LABORATORY Anion Gap 9 5 - 15 mmol/L [facility] LABORATORY Specimen Anatomical Collection Method Collection Time Receive d Time (Source) Location / / Volume Laterality Blood 02/06/2022 9:00 AM 2 9:04 EDT AM EDT Resulting Agency Comment Spec In Lab Angelina Reynoso MD CHEMISTRY ORDERABLES Performing Organization Address City/[facility]/ZIP [facility] Phon e Number [address] Transfuse RBC (02/06/2022 8:38 AM EDT) Dunia Han DO NURSING TREATMENT ORDERAB LES - BLOOD ADMIN POCT Glucose (02/06/2022 7:47 AM EDT) athologist Signature POC Glucose 149 65 - 199 [facility] mg/dL [facility]OR[facility] Comment: Supplemental ranges: <140 mg/dL before meals <180 mg/dL all other times of the day Specimen Anatomical Collection Method Collection Time Receive d Time (Source) Location / / Volume Laterality Blood 02/06/2022 7:47 AM 7:47 EDT AM EDT Dunia Han DO POINT OF CARE TEST ORDERA BLES Performing Organization Address City/[facility]/ZIP Code Phon e Number [address] Prepare RBC (02/06/2022 7:40 AM EDT) athologist Signature Dispensed? Yes [facility] LABORATORY Specimen Anatomical Collection Method Collection Time Receive d Time (Source) Location / / Volume Laterality Blood 02/06/2022 7:40 AM 2 7:37 EDT AM EDT Dunia Han DO BLOOD BANK ORDERABLES Performing Organization Address City/[facility]/ZIP [place] [address] (ABNORMAL) Basic Metabolic Panel (non-fasting) (02/06/2022 7:40 AM EDT) athologist Signature Glucose Lvl 138 65 - 199 [facility] mg/dL [facility] Comment: Diabetes: >=200 mg/dL plus symp toms BUN 44 (H) 10 - 20 mg/dL [facility] LABORATORY Creatinine 4.52 (H) 0.80 - 1.50 mg/dL [facility] LABORATORY Sodium 123 (L) 135 - 145 mmol/L [facility] LABORATORY Potassium 5.4 (H) 3.5 - 5.0 mmol/L [facility] LABORATORY Comment: Please note: ??Patients with WBC >100,00 0 may have falsely elevated Potassium levels. ??For accurate Potassium quantif ication in these patients send serum separator tube (gold top) for subsequent determinations. ??Contact the Clinical Chemistry Laboratory if there are any qu estions. Chloride 91 (L) 98 - 107 mmol/L [facility] LABORATORY CO2 23 22 - 31 mmol/L [facility] LABOR[facility]ORY Anion Gap 9 5 - 15 mmol/L [facility] LABORATORY Calcium 6.7 (Critical) 8.5 - 10.5 mg/dL [facility] LABORATORY Comment: Called by: , Read back by: Alden Colindres, Date/Time:02/06/22 09:21. Estimated GFR 17 (L) >=60 mL/min/1.73 m?? [facility] LABORATORY Comment: This patient's estimated [...] Organization Address City/State/[place] [address] (ABNORMAL) BLOOD GAS 2 VENOUS (02/06/2022 6:19 AM EDT) P athologist Signature pH Honorio 7.40 7.32 - [facility] 7.42 [facility] LABORATORY pCO2 Honorio 40 (L) 41 - 51 [facility] LABORATORY pO2 Honorio 31 25 - 40 [facility] LABORATORY HCO3 Honorio 24.2 mmol/L [facility] LABORATORY BE Honorio -0.5 mmol/L [facility] LABORATORY Hgb Blood Gas 8.2 (L) 13.7 - [facility] 16.5 g/dL [facility] O2HB Honorio 65.2 % [facility] LABORATORY COHB Honorio 1.0 % [facility] LABORATORY Comment: Nonsmokers: 0.5-1.5% COHB Smokers: Variable, but usually less than 10% Toxic: 20-30% COHB Lethal: Greater than 60% COHB METHB Honorio 0.9 <=1.5 % [facility]OR[facility] Na Whole Blood 117 (Critical) 135 - 145 mmol/L [facility]OR[facility] Comment: Noted by instrument assembly supervisor. K Whole Blood 5.2 (H) 3.5 - 5.0 mmol/L [facility] LABORATORY Comment: Please note: Patients with WBC >100,000 may have falsely elevated Potassium levels. Contact the Clinical Chemistry L aboratory if there are any questions. ICa Whole Blood 0.96 (L) 1.15 - 1.33 mmol/L [facility] LABORATORY Comment: Note: ??Total bilirubin higher than 20 m g/dL may lead to falsely low ionized calcium. CL Whole Blood 91 (L) 98 - 107 mmol/L [facility] LABORATORY Gluc Whole Bld 113 65 - 199 mg/dL [facility]OR[facility] Comment: Diabetes: >=200 mg/dL plus symp toms Lactate WB 1.3 0.5 - 2.2 mmol/L [facility] LABORAT[facility] BGas Source Venous [facility] LABORATORY Specimen Anatomical Collection Method Collection Time Receive d Time (Source) Location / / Volume Laterality Blood 02/06/2022 6:19 AM 6:19 EDT AM EDT Dunia Han DO CHEMISTRY ORDERABLES Performing Organization Address City/State/[place] [address] Fibrinogen (02/06/2022 6:16 AM EDT) athologist Signature Fibrinogen 294 200 - 393 [facility]dL [facility] Comment: A fibrinogen level >100 mg/dL is adequat e for hemostasis in most patients without underlying bleeding disorders. Specimen Anatomical Collection Method Collection Time Receive d Time (Source) Location / / Volume Laterality Blood 02/06/2022 6:16 AM 2 6:20 EDT AM EDT Resulting Agency Comment Spec In Lab Danielle Ramirez MD HEMATOLOGY ORDERABLES Performing Organization Address City/[facility] Code Phon e Number [address] Prothrombin Time (02/06/2022 6:16 AM EDT) athologist Signature PT 11.6 9.4 - 12.5 [facility] LABORATORY INR 1.0 [facility] LABORATORY Comment: An [...] MD HEMATOLOGY ORDERABLES Performing Organization Address City/[facility] Code Phon e Number [place] [id number] HOSPITAL LABORATORY Drive Platelet count (02/06/2022 6:16 AM EDT) athologist Signature Platelets 185 145 - 357 [facility] x10(3)/[facility] LABORATORY Plat Immature 2.7 0.0 - 7.4 [facility] MANDO % % [facility] LABORATORY Comment: Limitation of the Immature Platelet Frac tion (IPF)-May be less reliable when the platelet count is less than 18g370/u L due to statistical imprecision. The IPF [...] in a decreased state of production. References: [employer] The Clinical Value of the Immature Platelet Fraction (IPF) in Cell Recovery Document Number [id number] 12/2010 [employer] The Role of the Imm ature Platelet Fraction (IPF) in the Differential Diagnosis of Thrombocytopen ia, Document [id number] V05 P012/12 Specimen Anatomical Collection Method Collection Time Receive d Time (Source) Location / / Volume Laterality Blood 02/06/2022 6:16 AM 2 6:20 EDT AM EDT Resulting Agency Comment Spec In Lab Danielle Ramirez MD HEMATOLOGY ORDERABLES Performing Organization Address City/[facility]/ZIP Code Phon e Number [address] (ABNORMAL) Hematocrit (02/06/2022 6:16 AM EDT) P athologist Signature Hematocrit 20.5 (L) 40.5 - [facility] 48.5 % [facility] LABORATORY Specimen Anatomical Collection Method Collection Time Receive d Time (Source) Location / / Volume Laterality Blood 02/06/2022 6:16 AM 2 6:20 EDT AM EDT Resulting Agency Comment Spec In Lab Danielle Ramirez MD HEMATOLOGY ORDERABLES Performing Organization Address City/[facility] [place] [address] (ABNORMAL) Hemoglobin (02/06/2022 6:16 AM EDT) P athologist Signature Hemoglobin 7.5 (L) 13.7 - 16.5 [facility] g/dL [facility]OR[facility]ORY Specimen Anatomical Collection Method Collection Time Receive d Time (Source) Location / / Volume Laterality Blood 02/06/2022 6:16 AM 6:20 EDT AM EDT Resulting Agency Comment Spec In Lab Danielle Ramirez MD HEMATOLOGY ORDERABLES Performing Organization Address City/State/[place] [address] (ABNORMAL) BLOOD GAS 2 ARTERIAL (02/06/2022 6:14 AM EDT) Analysis Performed At Patho logist Time Signature pH Art 7.47 (H) 7.35 - [facility] 7.45 [facility] LABORATORY pCO2 Art 33 (L) 35 - 45 [facility] mmHg [facility] LABORATORY pO2 Art 83 (L) 85 - 104 [facility] LABORATORY HCO3 Art 23.3 20.0 - [facility] 26.0 [facility] mmol/L [facility] LABORATORY BE Art -0.3 -3.0 - 3.0 [facility] mmol/L [facility] LABORATORY Hgb Blood Gas 8.4 (L) 13.7 - [facility] 16.5 g/dL [facility]ORAT[facility] O2HB Art 94.3 94.0 - [facility] 97.0 % [facility]ORAT[facility] COHB Art 0.3 % [facility] LABORATORY Comment: Nonsmokers: 0.5-1.5% COHB Smokers: Variable, but usually less than 10% Toxic: 20-30% COHB Lethal: Greater than 60% COHB METHB Art 1.0 <=1.5 % [facility] LABORAT[facility] Na Whole Blood 117 (Critical) 135 - 145 mmol/L [facility] Comment: Noted by instrument assembly supervisor. K Whole Blood 5.3 (H) 3.5 - 5.0 mmol/L [facility] LABORATORY Comment: Please note: Patients with WBC >100,000 may have falsely elevated Potassium levels. Contact the Clinical Chemistry L aboratory if there are any questions. ICa Whole Blood 0.96 (L) 1.15 - 1.33 mmol/L [facility] LABORATORY Comment: Note: ??Total bilirubin higher than 20 m g/dL may lead to falsely low ionized calcium. CL Whole Blood 91 (L) 98 - 107 mmol/L [facility] LABORATORY Gluc Whole Bld 117 65 - 199 mg/dL [facility] Comment: Diabetes: >=200 mg/dL plus symp toms. Lactate WB 1.3 0.5 - 2.2 mmol/L [facility]OR[facility] FIO2 Art 21 % [facility] LABORAT[facility] PF Ratio Art 395 [facility] LABORATORY Specimen Anatomical Collection Method Collection Time Receive d Time (Source) Location / / Volume Laterality Blood 02/06/2022 6:14 AM 2 6:14 EDT AM EDT Dunia Han DO CHEMISTRY ORDERABLES Performing Organization Address City/[facility]/ZIP Code Phon e Number [address] Transfuse RBC (02/06/2022 6:01 AM EDT) Duniaryan Stewart A Atchinson DO NURSING TREATMENT ORDERAB LES - BLOOD ADMIN Transfuse RBC (02/06/2022 6:01 AM EDT) Dunia Pat A Atchinson DO NURSING TREATMENT ORDERAB LES - BLOOD ADMIN Blood culture (02/06/2022 6:00 AM EDT) [facility] gist Method Time Signature Blood Culture No growth JOSH MANDO at 5 days. [facility] LABORATORY Specimen Anatomical Collection Method Collection Time Receive d Time (Source) Location / / Volume Laterality Blood 02/06/2022 6:00 AM 2 7:28 EDT AM EDT Resulting Agency Comment Spec In Lab Dunia Han DO MICROBIOLOGY - BLOOD ORDE RABLES Performing Organization Address City/[facility]/ZIP Code Phon e Number [address] Insert Arterial Line (02/06/2022 [...] p lanned procedure. ?? Hand Hygiene: The ortho assistant did perform h and hygiene prior [...] 4:20 AM EDT) athologist Signature Dispensed? Yes [facility] LABORATORY Specimen Anatomical Collection Method Collection Time Receive d Time (Source) Location / / Volume Laterality Blood 02/06/2022 4:20 AM 2 4:20 EDT AM EDT Dunia Han DO BLOOD BANK ORDERABLES Performing Organization Address City/State/[place] [address] Scan, Peripheral Blood (02/06/2022 3:48 AM EDT) [facility] gist Method Time Signature Plat Estimate Normal [facility] LABORATORY RBC Morphology Abnormal [facility] LABORATORY Ovalocytes 1-5 /HPF [facility] LABORATORY Lawrence Cells 1-5 /HPF [facility] LABORATORY Specimen Anatomical Collection Method Collection Time Receive d Time (Source) Location / / Volume Laterality Blood 02/06/2022 3:48 AM 3:51 EDT AM EDT Resulting Agency Comment Spec In Lab Danielle Ramirez MD HEMATOLOGY ORDERABLES Performing Organization Address City/State/[place] [address] (ABNORMAL) Differential, Automated (02/06/2022 3:48 AM EDT) [facility] Method Time Signature Neutrophils % 56.0 % [facility] LABORATORY Neutr Abs (ANC) 10.94 (H) 1.70 - [facility] 6.10 [facility] x10(3)/[facility] LABORATORY Lymphocytes % 11.6 % [facility] LABORATORY Lymphocytes Abs 2.3 0.9 - 3.2 [facility] x10(3)/[facility] LABORATORY Monocytes % 15.0 % [facility] LABORATORY Monocyte Abs 2.9 (H) 0.3 - 0.9 [facility] x10(3)/[facility] LABORATORY Eosinophils % 1.0 % [facility] LABORATORY Eosinophils Abs 0.2 0.0 - 0.4 [facility] x10(3)/[facility] LABORATORY Basophils % 0.6 % [facility] LABORATORY Basophils Abs 0.1 0.0 - 0.1 [facility] x10(3)/[facility] LABORATORY Immature Gran % 15.80 % [facility] LABORATORY Comment: Immature granulocytes(IG's)percentage an d absolute count will include metamyelocytes, myelocytes, and promyelo cytes. Blood smears from CBCs yielding IG's will be scanned manually for concor dance. If this scan disagrees with the automated IG or if promyelocytes are not ed, a manual differential will be performed. Gemini Gran Abs 3.09 (H) 0.00 - 0.04 x10(3)/[facility] LABORATORY Specimen Anatomical Collection Method Collection Time Receive d Time (Source) Location / / Volume Laterality Blood 02/06/2022 3:48 AM 2 3:51 EDT AM EDT Resulting Agency Comment Spec In Lab Danielle Ramirez MD HEMATOLOGY ORDERABLES Performing Organization Address City/State/[place] [address] (ABNORMAL) Hemogram (02/06/2022 3:48 AM EDT) [facility] gist Method Time Signature WBC 19.5 (H) 4.0 - 9.5 [facility] x[facility](3[facility] LABORATORY RBC 2.27 (L) 4.58 - [facility] 5.54 [facility] x10(6)/[facility] LABORATORY Hemoglobin 6.9 (L) 13.7 - [facility] 16.5 g/dL [facility] Hematocrit 19.2 (L) 40.5 - [facility] 48.5 % [facility] MCV 84.6 82.9 - [facility] 93.1 [facility] LABORATORY MCH 30.4 27.5 - [facility] 32.1 pg [facility] LABORAT[facility] MCHC 35.9 (H) 32.0 - [facility] 35.7 g/dL [facility] LABORATORY Platelets 147 145 - 357 [facility] x10(3)/[facility] LABORATORY RDWSD 45.8 (H) 36.0 - [facility] 45.0 [facility] LABORATORY RDWCV 15.1 (H) 11.4 - [facility] MANDO 13.8 % [facility] LABORATORY MPV 9.4 7.6 - 12.9 [facility] nRBC % Auto 0.4 % [facility] LABORATORY nRBC Abs Auto 0.080 (H) 0.000 - JOS[facility] MANDO 0.000 [facility] x10(3)/[facility] LABORATORY Specimen Anatomical Collection Method Collection Time Receive d Time (Source) Location / / Volume Laterality Blood 02/06/2022 3:48 AM 2 3:51 EDT AM EDT Resulting Agency Comment Spec In Lab Danielle Ramirez MD HEMATOLOGY ORDERABLES Performing Organization Address City/State/[place] [address] (ABNORMAL) BLOOD GAS 2 ARTERIAL (02/06/2022 3:48 AM EDT) P athologist Signature pH Art 7.42 7.35 - [facility] 7.45 [facility] LABORATORY pCO2 Art 40 35 - 45 [facility] mmHg [facility] LAB[facility] pO2 Art 36 85 - 104 [facility] (Critical) mmHg [facility] Comment: Noted by instrument assembly supervisor. HCO3 Art 25.7 20.0 - 26.0 mmol/L [facility] OCK [facility] LABORAT[facility] BE Art 1.3 -3.0 - 3.0 mmol/L [facility] LABORAT[facility] Hgb Blood Gas 7.9 (L) 13.7 - 16.5 g/dL [facility] LABORATORY O2HB Art 73.5 (L) 94.0 - 97.0 % [facility] LABORATORY COHB Art 0.5 % [facility] LABORATORY Comment: Nonsmokers: 0.5-1.5% COHB Smokers: Variable, but usually less than 10% Toxic: 20-30% COHB Lethal: Greater than 60% COHB METHB Art 1.2 <=1.5 % [facility] LABORATORY Na Whole Blood 118 (Critical) 135 - 145 mmol/L [facility] Comment: Noted by instrument assembly supervisor. K Whole Blood 5.2 (H) 3.5 - 5.0 mmol/L [facility] LABORATORY Comment: Please note: Patients with WBC >100,000 may have falsely elevated Potassium levels. Contact the Clinical Chemistry L aboratory if there are any questions. ICa Whole Blood 0.93 (L) 1.15 - 1.33 mmol/L [facility] LABORATORY Comment: Note: ??Total bilirubin higher than 20 m g/dL may lead to falsely low ionized calcium. CL Whole Blood 92 (L) 98 - 107 mmol/L [facility] LABORATORY Gluc Whole Bld 122 65 - 199 mg/dL [facility] LABOR[facility] Comment: Diabetes: >=200 mg/dL plus symp toms. Lactate WB 1.8 0.5 - 2.2 mmol/L [facility] Temp Art 37.0 Celsius [facility] LABORATORY Specimen Anatomical Collection Method Collection Time Receive d Time (Source) Location / / Volume Laterality Blood 02/06/2022 3:48 AM 2 3:48 EDT AM EDT Dunia Han DO CHEMISTRY ORDERABLES Performing Organization Address City/[facility]/ZIP [place] [address] Prepare RBC (02/06/2022 1:20 AM EDT) P athologist Signature Dispensed? Yes [facility] LABORATORY Specimen Anatomical Collection Method Collection Time Receive d Time (Source) Location / / Volume Laterality Blood 02/06/2022 1:20 AM 2 1:18 EDT AM EDT Dunia Han DO BLOOD BANK ORDERABLES Performing Organization Address City/[facility]/ZIP [place] [address] Fibrinogen (02/06/2022 12:50 AM EDT) P athologist Signature Fibrinogen 298 200 - 393 [facility] mg/dL [facility] Comment: A fibrinogen level >100 mg/dL is adequat e for hemostasis in most patients without underlying bleeding disorders. Specimen Anatomical Collection Method Collection Time Receive d Time (Source) Location / / Volume Laterality Blood 02/06/2022 12:50 02/06/2022 1:04 AM EDT AM EDT Resulting Agency Comment Spec In Lab Danielle Ramirez MD HEMATOLOGY ORDERABLES Performing Organization Address City/[facility]/ZIP [place] [address] (ABNORMAL) Prothrombin Time (02/06/2022 12:50 AM EDT) P athologist Signature PT 14.6 (H) 9.4 - 12.5 [facility] LABORATORY INR 1.3 [facility] LABORATORY Comment: An [...] Organization Address City/State/[place] [address] Platelet count (02/06/2022 12:50 AM EDT) P athologist Signature Platelets 202 145 - 357 [facility] x10(3)/[facility] LABORATORY Plat Immature 3.3 0.0 - 7.4 [facility] % % [facility] LABORATORY Comment: Limitation of the Immature Platelet Frac tion (IPF)-May be less reliable when the platelet count is less than [id number]/u L due to statistical imprecision. The IPF [...] in a decreased state of production. References: [employer] The Clinical Value of the Immature Platelet Fraction (IPF) in Cell Recovery Document Number 10-1143 12/2010 [employer] The Role of the Imm ature [...] Organization Address City/State/[place] [address] (ABNORMAL) Hematocrit (02/06/2022 12:50 AM EDT) athologist Signature Hematocrit 13.3 (L) 40.5 - JOSH VELASQUEZMANDO 48.5 % [facility] LABORATORY Specimen Anatomical Collection Method Collection Time Receive d Time (Source) Location / / Volume Laterality Blood 02/06/2022 12:50 02/06/2022 1:04 AM EDT AM EDT Resulting Agency Comment Spec In Lab Danielle Ramirez MD HEMATOLOGY ORDERABLES Performing Organization Address City/[facility]/ZIP [place] [address] (ABNORMAL) Hemoglobin (02/06/2022 12:50 AM EDT) athologist Signature Hemoglobin 4.8 13.7 - JOSH VELASQUEZMANDO (Critical) 16.5 g/dL [facility]OR[facility] Comment: This result has been called [...] MD HEMATOLOGY ORDERABLES Performing Organization Address City/[facility]/ZIP Code Phon e Number [address] (ABNORMAL) Basic Metabolic Panel (non-fasting) (02/06/2022 12:50 AM EDT) athologist Signature Glucose Lvl 177 65 - 199 [place] [place] mg/dL [facility]OR[facility] Comment: Diabetes: >=200 mg/dL plus symp toms BUN 42 (H) 10 - 20 mg/dL [facility] LABORATORY Creatinine 4.29 (H) 0.80 - 1.50 mg/dL [facility] LABORATORY Sodium 124 (L) 135 - 145 mmol/L [facility] LABORATORY Potassium 5.3 (H) 3.5 - 5.0 mmol/L [facility] LABORATORY Comment: Please note: ??Patients with WBC >100,00 0 may have falsely elevated Potassium levels. ??For accurate Potassium quantif ication in these patients send serum separator tube (gold top) for subsequent determinations. ??Contact the Clinical Chemistry Laboratory if there are any qu estions. Chloride 89 (L) 98 - 107 mmol/L [facility] LABORATORY CO2 24 22 - 31 mmol/L [facility] LABORATORY Anion Gap 11 5 - 15 mmol/L [facility] LABORATORY Calcium 6.5 (Critical) 8.5 - 10.5 mg/dL [facility] LABORATORY Comment: called by bm/read back by bon anton 02/06/22 0147 Estimated GFR 18 (L) >=60 mL/min/1.73 m?? [facility] LABORATORY Comment: This patient's estimated [...] Organization Address City/State/ZIP Code Phon e Number [address] (ABNORMAL) Phosphorus (02/06/2022 12:50 AM EDT) P athologist Signature Phosphorus 6.5 (H) 2.5 - 4.5 [facility] mg/dL [facility] LABORATORY Specimen Anatomical Collection Method Collection Time Receive d Time (Source) Location / / Volume Laterality Blood 02/06/2022 12:50 02/06/2022 1:04 AM EDT AM EDT Resulting Agency Comment Spec In Lab Gela Novak MD CHEMISTRY ORDERABLES Performing Organization Address City/State/ZIP Code Phon e Number [address] Magnesium (02/06/2022 12:50 AM EDT) P athologist Signature Magnesium 0.88 0.69 - 1.07 [facility] mmol/L [facility] LABORATORY Specimen Anatomical Collection Method Collection Time Receive d Time (Source) Location / / Volume Laterality Blood 02/06/2022 12:50 02/06/2022 1:04 AM EDT AM EDT Resulting Agency Comment Spec In Lab Gela Novak MD CHEMISTRY ORDERABLES Performing Organization Address City/State/ZIP Code Phon e Number [address] Transfuse thawed plasma (02/06/2022 [...] athologist Signature pH Honorio 7.40 7.32 - [facility] 7.42 [facility] LABORATORY pCO2 Honorio 34 (L) 41 - 51 [facility] mmHg [facility] LABORATORY pO2 Honorio 28 25 - 40 [facility] LABORATORY HCO3 Honorio 20.4 mmol/L [facility] LABORATORY BE Honorio -4.5 mmol/L [facility] LABORATORY Hgb Blood Gas 8.7 (L) 13.7 - [facility] 16.5 g/dL [facility] O2HB Honorio 60.3 % [facility] LABORATORY COHB Honorio 0.8 % [facility] LABOR[facility] Comment: Nonsmokers: 0.5-1.5% COHB Smokers: Variable, but usually less than 10% Toxic: 20-30% COHB Lethal: Greater than 60% COHB METHB Honorio 0.3 <=1.5 % [facility] LABORATORY Na Whole Blood 119 (Critical) 135 - 145 mmol/L [facility]OR[facility] Comment: Noted by instrument assembly supervisor. K Whole Blood 5.3 (H) 3.5 - 5.0 mmol/L [facility] LABORATORY Comment: Please note: Patients with WBC >100,000 may have falsely elevated Potassium levels. Contact the Clinical Chemistry L aboratory if there are any questions. ICa Whole Blood 0.95 (L) 1.15 - 1.33 mmol/L [facility] LABORATORY Comment: Note: ??Total bilirubin higher than 20 m g/dL may lead to falsely low ionized calcium. CL Whole Blood 93 (L) 98 - 107 mmol/L [facility] LABORATORY Gluc Whole Bld 163 65 - 199 mg/dL [facility] LABOR[facility] Comment: Diabetes: >=200 mg/dL plus symp toms Lactate WB 1.8 0.5 - 2.2 mmol/L [facility] LABORATORY BGas Source Venous [facility] LABORATORY Specimen Anatomical Collection Method Collection Time Receive d Time (Source) Location / / Volume Laterality Blood 02/05/2022 10:39 02/05/2022 PM EDT 10:39 PM EDT Dunia Han DO CHEMISTRY ORDERABLES Performing Organization Address City/State/ZIP [place] [address] Transfuse RBC (02/05/2022 10:34 PM EDT) Dilcia Lopez MD NURSING TREATMENT ORDERABLES - BLOOD ADMIN Transfuse RBC (02/05/2022 10:34 PM EDT) Dilcia Lopez MD NURSING TREATMENT ORDERABLES - BLOOD ADMIN (ABNORMAL) Hepatic Function Panel (02/05/2022 9:54 PM EDT) P athologist Signature Total Protein 3.2 (L) 6.1 - 8.0 [facility] [place] g/dL [facility] Albumin 1.4 (L) 3.2 - 5.2 [facility] g/dL [facility] AST 21 0 - 39 [facility] unit/L [facility] ALT <5 0 - 55 [facility] [place] unit/L [facility] Alk Phos 74 40 - 130 [facility] unit/L [facility] Total 0.4 0.2 - 1.3 [facility] Bilirubin mg/dL [facility] LABOR[facility] Bili, Direct 0.3 0.0 - 0.3 [facility] mg/dL [facility] Specimen Anatomical Collection Method Collection Time Receive d Time (Source) Location / / Volume Laterality Blood 02/05/2022 9:54 PM EDT 10:31 PM EDT Resulting Agency Comment Spec In Lab Dunia Han DO CHEMISTRY ORDERABLES Performing Organization Address City/State/ZIP [place] [address] (ABNORMAL) Basic Metabolic Panel (non-fasting) (02/05/2022 9:54 PM EDT) P athologist Signature Glucose Lvl 161 65 - 199 J[facility] [place] mg/dL [facility] Comment: Diabetes: >=200 mg/dL plus symp toms BUN 41 (H) 10 - 20 mg/dL [facility]OR[facility]ORY Creatinine 4.29 (H) 0.80 - 1.50 mg/dL [facility] LABORATORY Sodium 123 (L) 135 - 145 mmol/L [facility] Potassium 5.7 (H) 3.5 - 5.0 mmol/L [facility] Comment: Please note: ??Patients with WBC >100,00 0 may have falsely elevated Potassium levels. ??For accurate Potassium quantif ication in these patients send serum separator tube (gold top) for subsequent determinations. ??Contact the Clinical Chemistry Laboratory if there are any qu estions. Chloride 92 (L) 98 - 107 mmol/L [facility] LABORATORY CO2 23 22 - 31 mmol/L [facility]OR[facility] Anion Gap 8 5 - 15 mmol/L [facility] LABORATORY Calcium 6.2 (Critical) 8.5 - 10.5 mg/dL [facility] LABORATORY Comment: called by bm/read back by bon anton 02/05/22 [id number] Estimated GFR 18 (L) >=60 mL/min/1.73 m?? [facility] LABOR[facility] Comment: This patient's estimated [...] Organization Address City/State/[place] [address] Transfuse RBC (02/05/2022 9:25 PM EDT) Dilcia Lopez MD NURSING TREATMENT ORDERABLES - BLOOD ADMIN Transfuse RBC (02/05/2022 9:25 PM EDT) Dilcia Lopez MD NURSING TREATMENT ORDERABLES - BLOOD ADMIN Prepare thawed plasma (02/05/2022 9:10 PM EDT) P athologist Signature Dispensed? Yes [facility] LABORATORY Specimen Anatomical Collection Method Collection Time Receive d Time (Source) Location / / Volume Laterality Blood 02/05/2022 9:10 PM 9:08 EDT PM EDT Dilcia Lopez MD BLOOD BANK ORDERABLES Performing Organization Address City/State/ZIP [place] [address] Transfuse RBC (02/05/2022 8:58 PM EDT) Dilcia Lopez MD NURSING TREATMENT ORDERABLES - BLOOD ADMIN Transfuse RBC (02/05/2022 8:58 PM EDT) Dilcia Lopez MD NURSING TREATMENT ORDERABLES - BLOOD ADMIN Prepare RBC (02/05/2022 8:50 PM EDT) P athologist Signature Dispensed? Yes [facility] LABORATORY Specimen Anatomical Collection Method Collection Time Receive d Time (Source) Location / / Volume Laterality Blood 02/05/2022 8:50 PM 8:50 EDT PM EDT Dilcia Lopez MD BLOOD BANK ORDERABLES Performing Organization Address City/State/ZIP Code Phon e Number [address] Prepare RBC (02/05/2022 8:40 PM EDT) P athologist Signature Dispensed? Yes [facility] LABORATORY Specimen Anatomical Collection Method Collection Time Receive d Time (Source) Location / / Volume Laterality Blood 02/05/2022 8:40 PM 07/08/202 2 8:38 EDT PM EDT Dilcia Lopez MD BLOOD BANK ORDERABLES Performing Organization Address City/State/ZIP [place] [address] (ABNORMAL) Prothrombin Time (02/05/2022 8:35 PM EDT) P athologist Signature PT 56.2 (H) 9.4 - 12.5 [facility] LABORATORY INR 4.9 [facility] LABORATORY Comment: An [...] MD HEMATOLOGY ORDERABLES Performing Organization Address City/[facility]/ZIP [place] [address] Fibrinogen (02/05/2022 8:35 PM EDT) P athologist Signature Fibrinogen 314 200 - 393 [facility] mg/dL [facility] Comment: A fibrinogen level >100 mg/dL is adequat e for hemostasis in most patients without underlying bleeding disorders. Specimen Anatomical Collection Method Collection Time Receive d Time (Source) Location / / Volume Laterality Blood 02/05/2022 8:35 PM 2 8:45 EDT PM EDT Resulting Agency Comment Spec In Lab Dilcia Lopez MD HEMATOLOGY ORDERABLES Performing Organization Address City/[facility]/ZIP [place] [address] Prepare RBC (02/05/2022 7:55 PM EDT) P athologist Signature Dispensed? Yes [facility] LABORATORY Specimen Anatomical Collection Method Collection Time Receive d Time (Source) Location / / Volume Laterality Blood 02/05/2022 7:55 PM 2 7:53 EDT PM EDT Dilcia Lopez MD BLOOD BANK ORDERABLES Performing Organization Address City/State/[place] [address] (ABNORMAL) Differential, Automated (02/05/2022 7:50 PM EDT) [facility] gist Method Time Signature Neutrophils % 66.9 % [facility] LABORATORY Neutr Abs (ANC) 15.42 (H) 1.70 - [facility] 6.10 [facility] x10(3)/[facility] LABORATORY Lymphocytes % 9.1 % [facility] LABORATORY Lymphocytes Abs 2.1 0.9 - 3.2 [facility] x10(3)/[facility] LABORATORY Monocytes % 11.5 % [facility] LABORATORY Monocyte Abs 2.7 (H) 0.3 - 0.9 [facility] x10(3)/[facility] LABORATORY Eosinophils % 0.4 % [facility] LABORATORY Eosinophils Abs 0.1 0.0 - 0.4 [facility] x10(3)/[facility] LABORATORY Basophils % 0.3 % [facility] LABORATORY Basophils Abs 0.1 0.0 - 0.1 [facility] x10(3)/[facility] LABORATORY Immature Gran % 11.80 % [facility] LABORATORY Comment: Immature granulocytes(IG's)percentage an d absolute count will include metamyelocytes, myelocytes, and promyelo cytes. Blood smears from CBCs yielding IG's will be scanned manually for concor dance. If this scan disagrees with the automated IG or if promyelocytes are not ed, a manual differential will be performed. Gemini Gran Abs 2.73 (H) 0.00 - 0.04 x10(3)/[facility] LABORATORY Specimen Anatomical Collection Method Collection Time Receive d Time (Source) Location / / Volume Laterality Blood 02/05/2022 7:50 PM 8:09 EDT PM EDT Resulting Agency Comment Spec In Lab Dilcia Lopez MD HEMATOLOGY ORDERABLES Performing Organization Address City/State/[place] [address] (ABNORMAL) Hemogram (02/05/2022 7:50 PM EDT) P athologist Signature WBC 23.1 (H) 4.0 - 9.5 [facility] x10(3)/[facility] LABORATORY RBC 1.62 (L) 4.58 - [facility] 5.54 [facility] x10(6)/[facility] LABORATORY Hemoglobin 4.9 13.7 - [facility] (Critical) 16.5 g/dL [facility] LABOR[facility]ORY Comment: This result has been called to SHAHEEN GARZA by Graciela Sherman on 02 05 2022 at 2034, and has been read back. Hematocrit 13.7 (L) 40.5 - 48.5 % [facility] LABORATORY MCV 84.6 82.9 - 93.1 [facility] LABORATORY Comment: This result has been called to SHAHEEN GARZA by Graciela Sherman on 02 05 2022 at 2034, and has been read back. MCH 30.2 27.5 - 32.1 pg [facility] LABORATORY MCHC 35.8 (H) 32.0 - 35.7 g/dL [facility] LABORATORY Platelets 266 145 - 357 x10(3)/[facility] LABORATORY RDWSD 46.3 (H) 36.0 - 45.0 [facility] LABORATORY RDWCV 15.8 (H) 11.4 - 13.8 % [facility] LABORATORY MPV 10.2 7.6 - 12.9 [facility] LABORATORY nRBC % Auto 0.1 % [facility] LABORATORY nRBC Abs Auto 0.030 (H) 0.000 - 0.000 x10(3)/[facility] LABORATORY Specimen Anatomical Collection Method Collection Time Receive d Time (Source) Location / / Volume Laterality Blood 02/05/2022 7:50 PM 2 8:09 EDT PM EDT Resulting Agency Comment Spec In Lab Dilcia Lopez MD HEMATOLOGY ORDERABLES Performing Organization Address City/[facility]/ZIP [place] [address] Blood culture (02/05/2022 6:41 PM EDT) Patholo gist Method Time Signature Blood Culture No growth JOSH GILMORE at 5 days. [facility] LABORATORY Specimen Anatomical Collection Method Collection Time Receive d Time (Source) Location / / Volume Laterality Blood 02/05/2022 6:41 PM 2 8:46 EDT PM EDT Comment: R FA Resulting Agency Comment Spec In Lab Dilcia Lopez MD MICROBIOLOGY - BLOOD ORDERAB LES Performing Organization Address City/[facility]/ZIP [place] [address] (ABNORMAL) Hemoglobin (02/05/2022 5:20 PM EDT) P athologist Signature Hemoglobin 7.1 (L) 13.7 - 16.5 [facility] g/dL [facility] LABORATORY Specimen Anatomical Collection Method Collection Time Receive d Time (Source) Location / / Volume Laterality Blood 02/05/2022 5:20 PM 2 5:30 EDT PM EDT Resulting Agency Comment Spec In Lab Dilcia Lopez MD HEMATOLOGY ORDERABLES Performing Organization Address City/[facility]/ZIP [place] [address] Prepare RBC (02/05/2022 2:20 PM EDT) P athologist Signature Dispensed? Yes [facility] LABORATORY Specimen Anatomical Collection Method Collection Time Receive d Time (Source) Location / / Volume Laterality Blood 02/05/2022 2:20 PM 2 2:16 EDT PM EDT Tom Valdovinos MD BLOOD BANK ORDERABLES Performing Organization Address City/[facility]/ZIP [place] [address] (ABNORMAL) Hemoglobin (02/05/2022 9:30 AM EDT) P athologist Signature Hemoglobin 7.0 (L) 13.7 - 16.5 [facility] g/dL [facility] LABOR[facility]ORY Specimen Anatomical Collection Method Collection Time Receive d Time (Source) Location / / Volume Laterality Blood 02/05/2022 9:30 AM 9:39 EDT AM EDT Resulting Agency Comment Spec In Lab Dilcia Lopez MD HEMATOLOGY ORDERABLES Performing Organization Address City/State/ZIP Code Phon e Number [address] Transfuse RBC (02/05/2022 6:54 AM EDT) Coty Walton MD NURSING TREATMENT ORDERABLES - BLOOD ADMIN Transfuse RBC (02/05/2022 6:54 AM EDT) Coty Walton MD NURSING TREATMENT ORDERABLES - BLOOD ADMIN Transfuse RBC (02/05/2022 5:07 AM EDT) Coty Walton MD NURSING TREATMENT ORDERABLES - BLOOD ADMIN Prepare RBC (02/05/2022 2:35 AM EDT) athologist Signature Dispensed? Yes [facility] LABORATORY Specimen Anatomical Collection Method Collection Time Receive d Time (Source) Location / / Volume Laterality Blood 02/05/2022 2:35 AM 2 2:34 EDT AM EDT Coty Walton MD BLOOD BANK ORDERABLES Performing Organization Address City/[facility]/ZIP Code Phon e Number [address] Type and Screen Validity (02/05/2022 1:50 AM EDT) [facility] gist Method Time Signature T&S only valid [facility] at [facility] LABORATORY Comment: This Type and Screen result is only valid at the [facility] Specimen Anatomical Collection Method Collection Time Receive d Time (Source) Location / / Volume Laterality Blood 02/05/2022 1:50 AM 2 2:08 EDT AM EDT Resulting Agency Comment Spec In Lab Coty Walton MD BLOOD BANK ORDERABLES Performing Organization Address City/State/ZIP Code Phon e Number [address] ABORH Recheck Status (02/05/2022 1:50 AM EDT) [facility] Method Time Signature ABORH Type Completed [facility] LABORATORY Specimen Anatomical Collection Method Collection Time Receive d Time (Source) Location / / Volume Laterality Blood 02/05/2022 1:50 AM 2 2:08 EDT AM EDT Resulting Agency Comment Spec In Lab Coty Walton MD BLOOD BANK ORDERABLES Performing Organization Address City/[facility]/ZIP [place] [address] Antibody screen (02/05/2022 1:50 AM EDT) [facility] Method Time Signature Ab Screen Negative [facility] LABORATORY Expires at 02/08/2022 [facility] [id number] on: [facility] LABOR[facility]ORY Specimen Anatomical Collection Method Collection Time Receive d Time (Source) Location / / Volume Laterality Blood 02/05/2022 1:50 AM 2 2:08 EDT AM EDT Resulting Agency Comment Spec In Lab Coty Walton MD BLOOD BANK ORDERABLES Performing Organization Address City/[facility]/ZIP [place] [address] ABO/Rh Typing (02/05/2022 1:50 AM EDT) P athologist Signature ABORh Type A Pos [facility] LABORATORY Specimen Anatomical Collection Method Collection Time Receive d Time (Source) Location / / Volume Laterality Blood 02/05/2022 1:50 AM 2 2:08 EDT AM EDT Resulting Agency Comment Spec In Lab Coty Walton MD BLOOD BANK ORDERABLES Performing Organization Address City/State/ZIP [place] [address] (ABNORMAL) Differential, Automated (02/05/2022 12:56 AM EDT) Patholo gist Method Time Signature Neutrophils % 71.9 % [facility] LABORATORY Neutr Abs (ANC) 21.60 (H) 1.70 - [facility] 6.10 [facility] x10(3)/[facility] LABORATORY Lymphocytes % 8.3 % [facility] LABORATORY Lymphocytes Abs 2.5 0.9 - 3.2 [facility] x10(3)/[facility] LABORATORY Monocytes % 8.8 % [facility] LABORATORY Monocyte Abs 2.6 (H) 0.3 - 0.9 [facility] x10(3)/[facility] LABORATORY Eosinophils % 0.4 % [facility] LABORATORY Eosinophils Abs 0.1 0.0 - 0.4 [facility] x10(3)/[facility] LABORATORY Basophils % 0.3 % [facility] LABORATORY Basophils Abs 0.1 0.0 - 0.1 [facility] x10(3)/[facility] LABORATORY Immature Gran % 10.30 % [facility] LABORATORY Comment: Immature granulocytes(IG's)percentage an d absolute count will include metamyelocytes, myelocytes, and promyelo cytes. Blood smears from CBCs yielding IG's will be scanned manually for concor dance. If this scan disagrees with the automated IG or if promyelocytes are not ed, a manual differential will be performed. Gemini Gran Abs 3.11 (H) 0.00 - 0.04 x10(3)/[facility] LABORATORY Specimen Anatomical Collection Method Collection Time Receive d Time (Source) Location / / Volume Laterality Blood 02/05/2022 12:56 02/05/2022 1:20 AM EDT AM EDT Resulting Agency Comment Spec In Lab Dilcia Lopez MD HEMATOLOGY ORDERABLES Performing Organization Address City/State/[place] [address] (ABNORMAL) Hemogram (02/05/2022 12:56 AM EDT) P athologist Signature WBC 30.1 4.0 - 9.5 [facility] (Critical) x10(3)/[facility] LABORATORY Comment: This result has been called to WILLIE PAYNE by GAMA THOMPSON on 02 05 2022 at 0137, and has been read back. RBC 1.61 (L) 4.58 - 5.54 x10(6)/[facility] LABORATORY Hemoglobin 5.2 (Critical) 13.7 - 16.5 g/dL [facility] LABORATORY Comment: This result has been called to WILLIE PAYNE by GAMA THOMPSON on 02 05 2022 at 0137, and has been read back. Hematocrit 14.8 (L) 40.5 - 48.5 % [facility] LABORATORY MCV 91.9 82.9 - 93.1 [facility] LABORATORY MCH 32.3 (H) 27.5 - 32.1 pg [facility] LABORATORY MCHC 35.1 32.0 - 35.7 g/dL [facility] LABORATORY Platelets 363 (H) 145 - 357 x10(3)/[facility] LABORATORY RDWSD 47.0 (H) 36.0 - 45.0 [facility] LABORATORY RDWCV 14.8 (H) 11.4 - 13.8 % [facility] LABORATORY MPV 10.3 7.6 - 12.9 [facility] LABORATORY nRBC % Auto 0.1 % [facility] LABORATORY nRBC Abs Auto 0.020 (H) 0.000 - 0.000 x10(3)/[facility] LABORATORY Specimen Anatomical Collection Method Collection Time Receive d Time (Source) Location / / Volume Laterality Blood 02/05/2022 12:56 02/05/2022 1:20 AM EDT AM EDT Resulting Agency Comment Spec In Lab Dilcia Lopez MD HEMATOLOGY ORDERABLES Performing Organization Address City/State/[place] [address] (ABNORMAL) Basic Metabolic Panel (non-fasting) (02/05/2022 12:56 AM EDT) athologist Signature Glucose Lvl 125 65 - 199 [facility] mg/dL [facility] LABORATORY Comment: Diabetes: >=200 mg/dL plus symp toms BUN 49 (H) 10 - 20 mg/dL [facility] LABORATORY Creatinine 4.98 (H) 0.80 - 1.50 mg/dL [facility] LABORATORY Sodium 122 (L) 135 - 145 mmol/L [facility] LABORATORY Potassium 5.9 (H) 3.5 - 5.0 mmol/L [facility] LABORATORY Comment: Please note: ??Patients with WBC >100,00 0 may have falsely elevated Potassium levels. ??For accurate Potassium quantif ication in these patients send serum separator tube (gold top) for subsequent determinations. ??Contact the Clinical Chemistry Laboratory if there are any qu estions. Chloride 90 (L) 98 - 107 mmol/L [facility] LABORATORY CO2 24 22 - 31 mmol/L [facility] LABORATORY Anion Gap 8 5 - 15 mmol/L [facility] LABORATORY Calcium 6.4 (Critical) 8.5 - 10.5 mg/dL [facility] LABORATORY Comment: Called by: wesley, Read back by: Jesus Whittaker, Date/Time:02/05/22 02:07. Estimated GFR 15 (L) >=60 mL/min/1.73 m?? [facility] LABORATORY Comment: This patient's estimated [...] DO CHEMISTRY ORDERABLES Performing Organization Address City/[facility]/ZIP Code Phon e Number [address] (ABNORMAL) Phosphorus (02/05/2022 12:56 AM EDT) P athologist Signature Phosphorus 7.1 (H) 2.5 - 4.5 [facility] mg/dL [facility] LABORATORY Specimen Anatomical Collection Method Collection Time Receive d Time (Source) Location / / Volume Laterality Blood 02/05/2022 12:56 02/05/2022 1:20 AM EDT AM EDT Resulting Agency Comment Spec In Lab Gela Novak MD CHEMISTRY ORDERABLES Performing Organization Address City/[facility]/ZIP [place] [address] Magnesium (02/05/2022 12:56 AM EDT) P athologist Signature Magnesium 0.84 0.69 - 1.07 [facility] mmol/L [facility] LABORATORY Specimen Anatomical Collection Method Collection Time Receive d Time (Source) Location / / Volume Laterality Blood 02/05/2022 12:56 02/05/2022 1:20 AM EDT AM EDT Resulting Agency Comment Spec In Lab Gela Novak MD CHEMISTRY ORDERABLES Performing Organization Address City/[facility]/ZIP [facility] [place] [address] (ABNORMAL) BLOOD GAS 2 VENOUS (02/04/2022 6:43 PM EDT) P athologist Signature pH Honorio 7.34 7.32 - [facility] 7.42 [facility] LABORATORY pCO2 Honorio 43 41 - 51 [facility] LABORATORY pO2 Honorio 34 25 - 40 [facility] LABORATORY HCO3 Honorio 22.6 mmol/L [facility] LABORATORY BE Honorio -3.2 mmol/L [facility] LABORATORY Hgb Blood Gas 7.4 (L) 13.7 - [facility] 16.5 g/dL [facility] LABORATORY O2HB Honorio 58.9 % [facility] LABORATORY COHB Honorio 1.8 % [facility] LABORATORY Comment: Nonsmokers: 0.5-1.5% COHB Smokers: Variable, but usually less than 10% Toxic: 20-30% COHB Lethal: Greater than 60% COHB METHB Honorio 0.3 <=1.5 % [facility] LABORATORY Na Whole Blood 118 (Critical) 135 - 145 mmol/L [facility] LABORATORY K Whole Blood 5.2 (H) 3.5 - 5.0 mmol/L [facility] LABORATORY Comment: Please note: Patients with WBC >100,000 may have falsely elevated Potassium levels. Contact the Clinical Chemistry L aboratory if there are any questions. ICa Whole Blood 0.99 (L) 1.15 - 1.33 mmol/L [facility] LABORATORY Comment: Note: ??Total bilirubin higher than 20 m g/dL may lead to falsely low ionized calcium. CL Whole Blood 92 (L) 98 - 107 mmol/L [facility] LABORATORY Gluc Whole Bld 100 65 - 199 mg/dL [facility] LABORATORY Comment: Diabetes: >=200 mg/dL plus symp toms Lactate WB 1.5 0.5 - 2.2 mmol/L [facility] LABORATORY BGas Source Venous [facility] LABORATORY Specimen Anatomical Collection Method Collection Time Receive d Time (Source) Location / / Volume Laterality Blood 02/04/2022 6:43 PM 6:43 EDT PM EDT Dilcia Lopez MD CHEMISTRY ORDERABLES Performing Organization Address City/State/[place] [address] Trichomonas Gene Amp [place]CGP[place]D/[facility]H) Urine (02/04/2022 4:20 PM EDT) Analysis Performed At [facility] Time Signature Trich Gene Amp Negative Negative [facility] LABORATORY Comment: The only FDA approved specimen types for this assay are cervix and vaginal. Trich Source Urine [facility] LABORATORY Specimen Anatomical Collection Method Collection Time Receive d Time (Source) Location / / Volume Laterality Urine 02/04/2022 4:20 PM 2 5:03 EDT PM EDT Resulting Agency Comment Spec In Lab Dilcia Lopez MD MICROBIOLOGY - GENERAL ORDER JT Performing Organization Address [facility]/ZIP [facility] Phon e [address] Chlamydia Gene Amp ([facility]CGP/APD/NLH) Urine (02/04/2022 4:20 PM EDT) Analysis Performed At Patho logist Time Signature Chlamydia Gene Negative Negative [facility] LABORATORY Comment: The only FDA approved specimen types for this assay are cervical, vaginal, urethral and urine. Non-FDA approved myriam rces are eye, throat and rectal and have been internally validated. Chlamydia Source Urine [facility] LABORATORY Specimen Anatomical Collection Method Collection Time Receive d Time (Source) Location / / Volume Laterality Urine 02/04/2022 4:20 PM 2 5:03 EDT PM EDT Resulting Agency Comment Spec In Lab Dilcia Lopez MD MICROBIOLOGY - GENERAL ORDER JT Performing Organization Address [facility] Code Phon e [address] GC Gene Amp ([facility]CGP/APD/NLH) Urine (02/04/2022 4:20 PM EDT) P athologist Signature GC Gene Amp Negative Negative [facility] LABORATORY Comment: The only FDA approved specimen types for this assay are cervical, vaginal, urethral and urine. Non-FDA approved myriam rces are eye, throat and rectal and have been internally validated. GC Source Urine [facility] LABORATORY Specimen Anatomical Collection Method Collection Time Receive d Time (Source) Location / / Volume Laterality Urine 02/04/2022 4:20 PM 2 5:03 EDT PM EDT Resulting Agency Comment Spec In Lab Dilcia Lopez MD MICROBIOLOGY - GENERAL ORDER JT Performing Organization Address City/State/[place] [address] EKG 12 Lead (02/04/2022 6:17 AM EDT) Component Value Ref Range Test Analysis Performed Pathologis t Method Time At Signature Ventricular rate 99 BPM MUSE SYSTEM Atrial Rate 99 BPM MUSE SYSTEM P-R Interval 146 ms MUSE SYSTEM QRS Duration 96 ms MUSE SYSTEM Q-T Interval 336 ms MUSE SYSTEM QTC Calculated 431 ms MUSE SYSTEM (Bezet) Calculated P Colton 37 degrees MUSE SYSTEM Calculated R Col[place] 16 degrees MUSE SYSTEM Calculated T Colton 14 degrees MUSE SYSTEM INTERPRETATION Normal sinus rhythm MUSE SYSTEM Normal ECG When compared with ECG of 30-JAN-2022 09:18, Nonspecific T wave abnormality, improved in Inferior leads Confirmed by Tucker Beard ([id number]) on 02/04/2022 5:25:0 4 PM Specimen Anatomical Collection Method Collection Time Receive d Time (Source) Location / / Volume Laterality 02/04/2022 6:17 AM 5:25 EDT PM EDT Candida Krishna MD ECG ORDERABLES Performing Organization Address City/[facility]/ZIP Code Phon e Number MUSE SYSTEM (ABNORMAL) Albumin Level (02/04/2022 4:21 AM EDT) P athologist Signature Albumin 1.7 (L) 3.2 - 5.2 [facility] g/dL [facility] LABORATORY Specimen Anatomical Collection Method Collection Time Receive d Time (Source) Location / / Volume Laterality Blood Venous Draw / 02/04/2022 4:21 AM 02/05/20 4:25 Unknown EDT AM EDT Resulting Agency Comment Spec In Lab Candida Krishna MD CHEMISTRY ORDERABLES Performing Organization Address City/[facility]/[place] [address] (ABNORMAL) Differential, Automated (02/04/2022 4:21 AM EDT) Patholo gist Method Time Signature Neutrophils % 71.7 % [facility] LABORATORY Neutr Abs (ANC) 22.88 (H) 1.70 - [facility] 6.10 [facility] x10(3)/[facility] L LABORATORY Lymphocytes % 8.4 % [facility] LABORATORY Lymphocytes Abs 2.7 0.9 - 3.2 [facility] x10(3)/[facility] LABORATORY Monocytes % 8.2 % [facility] LABORATORY Monocyte Abs 2.6 (H) 0.3 - 0.9 [facility] x10(3)/[facility] LABORATORY Eosinophils % 1.4 % [facility] LABORATORY Eosinophils Abs 0.4 0.0 - 0.4 [facility] x10(3)/[facility] LABORATORY Basophils % 0.6 % [facility] LABORATORY Basophils Abs 0.2 (H) 0.0 - 0.1 [facility] x10(3)/[facility] LABORATORY Immature Gran % 9.70 % [facility] LABORATORY Comment: Immature granulocytes(IG's)percentage an d absolute count will include metamyelocytes, myelocytes, and promyelo cytes. Blood smears from CBCs yielding IG's will be scanned manually for concor dance. If this scan disagrees with the automated IG or if promyelocytes are not ed, a manual differential will be performed. Gemini Gran Abs 3.09 (H) 0.00 - 0.04 x10(3)/[facility] LABORATORY Specimen Anatomical Collection Method Collection Time Receive d Time (Source) Location / / Volume Laterality Blood 02/04/2022 4:21 AM 4:24 EDT AM EDT Resulting Agency Comment Spec In Lab Dilcia Lopez MD HEMATOLOGY ORDERABLES Performing Organization Address City/State/[place] [address] (ABNORMAL) Hemogram (02/04/2022 4:21 AM EDT) P athologist Signature WBC 31.9 4.0 - 9.5 [facility] (Critical) x10(3)/[facility] LABORATORY Comment: This result has been called to NIKKI SANZ by Nicki Bazzi on 02 04 2022 at 0434, and has been read back. RBC 2.40 (L) 4.58 - 5.54 x10(6)/[facility] LABORATORY Hemoglobin 7.7 (L) 13.7 - 16.5 g/dL [facility] LABORATORY Hematocrit 21.4 (L) 40.5 - 48.5 % [facility] LABORATORY MCV 89.2 82.9 - 93.1 fL [facility] LABORATORY MCH 32.1 27.5 - 32.1 pg [facility] LABORATORY MCHC 36.0 (H) 32.0 - 35.7 g/dL [facility] LABORATORY Platelets 303 145 - 357 x10(3)/[facility] LABORATORY RDWSD 46.1 (H) 36.0 - 45.0 [facility] LABORATORY RDWCV 14.6 (H) 11.4 - 13.8 % [facility] LABORATORY MPV 9.8 7.6 - 12.9 [facility] LABORATORY nRBC % Auto 0.0 % [facility] LABORATORY nRBC Abs Auto 0.000 0.000 - 0.000 x10(3)/[facility] LABORATORY Specimen Anatomical Collection Method Collection Time Receive d Time (Source) Location / / Volume Laterality Blood 02/04/2022 4:21 AM 4:24 EDT AM EDT Resulting Agency Comment Spec In Lab Dilcia Lopez MD HEMATOLOGY ORDERABLES Performing Organization Address City/State/[place] [address] (ABNORMAL) Basic Metabolic Panel (non-fasting) (02/04/2022 4:21 AM EDT) athologist Signature Glucose Lvl 100 65 - 199 [facility] mg/dL [facility] LABORATORY Comment: Diabetes: >=200 mg/dL plus symp toms BUN 64 (H) 10 - 20 mg/dL [facility] LABORATORY Creatinine 5.55 (H) 0.80 - 1.50 mg/dL [facility] LABORATORY Comment: result rechecked-KEYUR Sodium 120 (L) 135 - 145 mmol/L [facility] LABORATORY Potassium 5.7 (H) 3.5 - 5.0 mmol/L [facility] LABORATORY Comment: Please note: ??Patients with WBC >100,00 0 may have falsely elevated Potassium levels. ??For accurate Potassium quantif ication in these patients send serum separator tube (gold top) for subsequent determinations. ??Contact the Clinical Chemistry Laboratory if there are any qu estions. Chloride 91 (L) 98 - 107 mmol/L [facility] LABORATORY CO2 19 (L) 22 - 31 mmol/L [facility] LABORATORY Anion Gap 10 5 - 15 mmol/L [facility] LABORATORY Calcium 6.3 (Critical) 8.5 - 10.5 mg/dL [facility] LABORATORY Comment: called by KEYUR/read back by Yessi Esteves / 02/04/22 0513 Estimated GFR 13 (L) >=60 mL/min/1.73 m?? [facility] LABORATORY Comment: This patient's estimated [...] Organization Address City/State/[place] [address] (ABNORMAL) Phosphorus (02/04/2022 4:21 AM EDT) P athologist Signature Phosphorus 7.5 (H) 2.5 - 4.5 [facility] mg/dL [facility] LABORATORY Specimen Anatomical Collection Method Collection Time Receive d Time (Source) Location / / Volume Laterality Blood 02/04/2022 4:21 AM 2 4:24 EDT AM EDT Resulting Agency Comment Spec In Lab Gela Novak MD CHEMISTRY ORDERABLES Performing Organization Address City/[facility]/ZIP Code Phon e Number [address] Magnesium (02/04/2022 4:21 AM EDT) athologist Signature Magnesium 0.88 0.69 - 1.07 [facility] mmol/L [facility] LABORATORY Specimen Anatomical Collection Method Collection Time Receive d Time (Source) Location / / Volume Laterality Blood 02/04/2022 4:21 AM 2 4:24 EDT AM EDT Resulting Agency Comment Spec In Lab eGla Novak MD CHEMISTRY ORDERABLES Performing Organization Address City/[facility] Code Phon e Number [address] Transfuse RBC (02/03/2022 6:36 PM EDT) Dilcia Lopez MD NURSING TREATMENT ORDERABLES - BLOOD ADMIN Transfuse RBC (02/03/2022 6:36 PM EDT) Dilcia Lopez MD NURSING TREATMENT ORDERABLES - BLOOD ADMIN POCT Glucose (02/03/2022 3:40 PM EDT) athologist Signature POC Glucose 127 65 - 199 [facility] mg/dL [facility] LABORATORY Comment: Supplemental ranges: <140 mg/dL before meals <180 mg/dL all other times of the day Specimen Anatomical Collection Method Collection Time Receive d Time (Source) Location / / Volume Laterality Blood 02/03/2022 3:40 PM 2 3:40 EDT PM EDT Dilcia Lopez MD POINT OF CARE TEST ORDERABLE S Performing Organization Address City/[facility]/ZIP Code Phon e Number [address] Prepare RBC (02/03/2022 3:20 PM EDT) athologist Signature Dispensed? No [facility] LABORATORY Specimen Anatomical Collection Method Collection Time Receive d Time (Source) Location / / Volume Laterality Blood 02/03/2022 3:20 PM 2 3:19 EDT PM EDT Dilcia Lopez MD BLOOD BANK ORDERABLES Performing Organization Address City/State/ZIP [place] [address] (ABNORMAL) Hemogram (02/03/2022 2:15 PM EDT) athologist Signature WBC 30.1 4.0 - 9.5 [facility] (Critical) x10(3)/[facility] LABORATORY Comment: This result has been called to VINOD WILCOX by Sarah Robison on 02 03 2022 at 1432, and has been read ba ck. RBC 2.14 (L) 4.58 - 5.54 x10(6)/[facility] LABORATORY Hemoglobin 6.8 (L) 13.7 - 16.5 g/dL [facility] LABORATORY Hematocrit 19.4 (L) 40.5 - 48.5 % [facility] LABORATORY MCV 90.7 82.9 - 93.1 [facility] LABORATORY MCH 31.8 27.5 - 32.1 pg [facility] LABORATORY MCHC 35.1 32.0 - 35.7 g/dL [facility] LABORATORY Platelets 333 145 - 357 x10(3)/[facility] LABORATORY RDWSD 45.9 (H) 36.0 - 45.0 [facility] LABORATORY RDWCV 14.2 (H) 11.4 - 13.8 % [facility] LABORATORY MPV 10.0 7.6 - 12.9 [facility] LABORATORY nRBC % Auto 0.0 % [facility] LABORATORY nRBC Abs Auto 0.000 0.000 - 0.000 x10(3)/[facility]L [facility] LABORATORY Specimen Anatomical Collection Method Collection Time Receive d Time (Source) Location / / Volume Laterality Blood 02/03/2022 2:15 PM 2:21 EDT PM EDT Resulting Agency Comment Spec In Lab Dilcia Lopez MD HEMATOLOGY ORDERABLES Performing Organization Address City/State/ZIP Code Phon e Number [address] Transfuse RBC (02/03/2022 11:43 AM EDT) Raimundo Lara MD NURSING TREATMENT ORDER JT - BLOOD ADMIN Transfuse RBC (02/03/2022 11:43 AM EDT) Raimundo Lara MD NURSING TREATMENT ORDER JT - BLOOD ADMIN POCT Glucose (02/03/2022 11:42 AM EDT) P athologist Signature POC Glucose 129 65 - 199 [facility] mg/dL [facility] LABORATORY Comment: Supplemental ranges: <140 mg/dL before meals <180 mg/dL all other times of the day Specimen Anatomical Collection Method Collection Time Receive d Time (Source) Location / / Volume Laterality Blood 02/03/2022 11:42 02/03/2022 AM EDT 11:42 AM EDT Erika Retana MD POINT OF CARE TEST ORDERABLE S Performing Organization Address City/State/ZIP [place] [address] Duplex for DVT, Arm, Unilat (02/03/2022 9:07 AM EDT) Component Value Ref Test Analysis Performed At Patholo gist Range Method Time Signature VB Text Department: Vascular Surgery Lab VASCUBASE Report Patient: [id number] (ALIX HOLLAND) CPT: 07456 Referring Physician: AGNIESZKA LÓPEZ ?? Phone: Indications: [...] Component Value Ref Test Analysis Performed At [facility] [email or web address] Range Method Time Signature VB Text Department: Vascular Surgery Lab VASCUBASE Report Patient: [id number] (ALIX HOLLAND) CPT: 50095 Referring Physician: AGNIESZKA LÓPEZ ?? Phone: Indications: [...] Signature POC Glucose 128 65 - 199 [facility] mg/dL [facility] LABORATORY Comment: Supplemental ranges: <140 mg/dL before meals <180 mg/dL all other times of the day Specimen Anatomical Collection Method Collection Time Receive d Time (Source) Location / / Volume Laterality Blood 02/03/2022 8:17 AM 8:17 EDT AM EDT Erika Retana MD POINT OF CARE TEST ORDERABLE S Performing Organization Address City/State/[place] [address] Prepare RBC (02/03/2022 7:51 AM EDT) athologist Signature Dispensed? Yes [facility] LABORATORY Specimen Anatomical Collection Method Collection Time Receive d Time (Source) Location / / Volume Laterality Blood No Charge / 02/03/2022 7:51 AM 2 7:51 Unknown EDT AM EDT Resulting Agency Comment Spec In Lab Raimundo Lara MD BLOOD BANK ORDERABLES Performing Organization Address City/[facility]/ZIP [place] [address] Prepare RBC (02/03/2022 7:45 AM EDT) athologist Signature Dispensed? Yes [facility] LABORATORY Specimen Anatomical Collection Method Collection Time Receive d Time (Source) Location / / Volume Laterality Blood 02/03/2022 7:45 AM 2 7:42 EDT AM EDT Raimundo Lara MD BLOOD BANK ORDERABLES Performing Organization Address [facility] [place] [address] (ABNORMAL) Hemoglobin and Hematocrit, blood (02/03/2022 6:47 AM EDT) P athologist Signature Hemoglobin 5.6 13.7 - [facility] (Critical) 16.5 g/dL [facility] LABORATORY Comment: This result has been called to EMANI HESS by Sarah Robison on 02 03 2022 at 0738, and has been read back. Hematocrit 16.0 (L) 40.5 - 48.5 % [facility] LABORATORY Specimen Anatomical Collection Method Collection Time Receive d Time (Source) Location / / Volume Laterality Blood 02/03/2022 6:47 AM 2 7:05 EDT AM EDT Resulting Agency Comment Spec In Lab Raimundo Lara MD HEMATOLOGY ORDERABLES Performing Organization Address City/[facility]/ZIP [facility] Phon e Number [address] Scan, Peripheral Blood (02/03/2022 4:55 AM EDT) Patholo gist Method Time Signature Plat Estimate Normal [facility] LABORATORY RBC Morphology Abnormal [facility] LABORATORY Macrocytes 1-5 /HPF [facility] LABORATORY Microcytes 1-5 /HPF [facility] LABORATORY Stippled RBCs Present >1/HPF [facility] LABORATORY Specimen Anatomical Collection Method Collection Time Receive d Time (Source) Location / / Volume Laterality Blood 02/03/2022 4:55 AM 5:09 EDT AM EDT Resulting Agency Comment Spec In Lab Dimas Hernandez MD HEMATOLOGY ORDERABLES Performing Organization Address City/State/[place] [address] (ABNORMAL) Differential, Automated (02/03/2022 4:55 AM EDT) [facility] Method Time Signature Neutrophils % 68.7 % [facility] LABORATORY Neutr Abs (ANC) 21.19 (H) 1.70 - [facility] 6.10 [facility] x10(3)/[facility] LABORATORY Lymphocytes % 10.5 % [facility] LABORATORY Lymphocytes Abs 3.2 0.9 - 3.2 [facility] x10(3)/[facility] LABORATORY Monocytes % 8.7 % [facility] LABORATORY Monocyte Abs 2.7 (H) 0.3 - 0.9 [facility] x10(3)/[facility] LABORATORY Eosinophils % 1.6 % [facility] LABORATORY Eosinophils Abs 0.5 (H) 0.0 - 0.4 [facility] x10(3)/[facility] LABORATORY Basophils % 0.3 % [facility] LABORATORY Basophils Abs 0.1 0.0 - 0.1 [facility] x10(3)/[facility] LABORATORY Immature Gran % 10.20 % [facility] LABORATORY Comment: Immature granulocytes(IG's)percentage an d absolute count will include metamyelocytes, myelocytes, and promyelo cytes. Blood smears from CBCs yielding IG's will be scanned manually for concor dance. If this scan disagrees with the automated IG or if promyelocytes are not ed, a manual differential will be performed. Gemini Gran Abs 3.13 (H) 0.00 - 0.04 x10(3)/[facility] LABORATORY Specimen Anatomical Collection Method Collection Time Receive d Time (Source) Location / / Volume Laterality Blood 02/03/2022 4:55 AM 5:09 EDT AM EDT Resulting Agency Comment Spec In Lab Dimas Hernandez MD HEMATOLOGY ORDERABLES Performing Organization Address City/State/[place] [address] (ABNORMAL) Hemogram (02/03/2022 4:55 AM EDT) athologist Signature WBC 30.8 4.0 - 9.5 [facility] (Critical) x10(3)/[facility] LABORATORY Comment: This result has been called to HALLEY HO by Maureen Dixon on 02 03 2022 at 0555, and has been read back. RBC 1.72 (L) 4.58 - 5.54 x10(6)/[facility] LABORATORY Hemoglobin 5.6 (Critical) 13.7 - 16.5 g/dL [facility] LABORATORY Comment: This result has been called to HALLEY HO by Maureen Dixon on 02 03 2022 at 0555, and has been read back. Hematocrit 15.9 (L) 40.5 - 48.5 % [facility] LABORATORY MCV 92.4 82.9 - 93.1 fL [facility] LABORATORY MCH 32.6 (H) 27.5 - 32.1 pg [facility] LABORATORY MCHC 35.2 32.0 - 35.7 g/dL [facility] LABORATORY Platelets 310 145 - 357 x10(3)/[facility] LABORATORY RDWSD 45.4 (H) 36.0 - 45.0 [facility] LABORATORY RDWCV 14.2 (H) 11.4 - 13.8 % [facility] LABORATORY MPV 10.2 7.6 - 12.9 [facility] LABORATORY nRBC % Auto 0.0 % [facility] LABORATORY nRBC Abs Auto 0.000 0.000 - 0.000 x10(3)/mcL M [facility] LABORATORY Specimen Anatomical Collection Method Collection Time Receive d Time (Source) Location / / Volume Laterality Blood 02/03/2022 4:55 AM 2 5:09 EDT AM EDT Resulting Agency Comment Spec In Lab Dimas Hernandez MD HEMATOLOGY ORDERABLES Performing Organization Address City/State/[place] [address] (ABNORMAL) Basic Metabolic Panel (non-fasting) (02/03/2022 4:55 AM EDT) athologist Signature Glucose Lvl 117 65 - 199 [facility] mg/dL [facility] LABORATORY Comment: Diabetes: >=200 mg/dL plus symp toms BUN 53 (H) 10 - 20 mg/dL [facility] LABORATORY Creatinine 4.40 (H) 0.80 - 1.50 mg/dL [facility] LABORATORY Sodium 123 (L) 135 - 145 mmol/L [facility] LABORATORY Potassium 5.2 (H) 3.5 - 5.0 mmol/L [facility] LABORATORY Comment: Please note: ??Patients with WBC >100,00 0 may have falsely elevated Potassium levels. ??For accurate Potassium quantif ication in these patients send serum separator tube (gold top) for subsequent determinations. ??Contact the Clinical Chemistry Laboratory if there are any qu estions. Chloride 93 (L) 98 - 107 mmol/L [facility] LABORATORY CO2 22 22 - 31 mmol/L [facility] LABORATORY Anion Gap 8 5 - 15 mmol/L [facility] LABORATORY Calcium 6.3 (Critical) 8.5 - 10.5 mg/dL [facility] LABORATORY Comment: Called by: , Read back by: Kerwin George, Date/Time:02/03/22 05:46. Estimated GFR 18 (L) >=60 mL/min/1.73 m?? [facility] LABORATORY Comment: This patient's estimated [...] DO CHEMISTRY ORDERABLES Performing Organization Address City/[facility]/ZIP Code Phon e Number [address] (ABNORMAL) Phosphorus (02/03/2022 4:55 AM EDT) P athologist Signature Phosphorus 6.4 (H) 2.5 - 4.5 [facility] mg/dL [facility] LABORATORY Specimen Anatomical Collection Method Collection Time Receive d Time (Source) Location / / Volume Laterality Blood 02/03/2022 4:55 AM 2 5:09 EDT AM EDT Resulting Agency Comment Spec In Lab Gela Novak MD CHEMISTRY ORDERABLES Performing Organization Address City/[facility]/ZIP [place] [address] Magnesium (02/03/2022 4:55 AM EDT) P athologist Signature Magnesium 0.84 0.69 - 1.07 [facility] MAND[facility] mmol/L [facility] LABORATORY Specimen Anatomical Collection Method Collection Time Receive d Time (Source) Location / / Volume Laterality Blood 02/03/2022 4:55 AM 2 5:09 EDT AM EDT Resulting Agency Comment Spec In Lab Gela Novak MD CHEMISTRY ORDERABLES Performing Organization Address City/[facility]/ZIP [place] [address] Vitamin B12 (02/03/2022 4:55 AM EDT) athologist Signature Vitamin B-12 535 232 - 1,245 [facility] M[facility] pg/mL [facility] LABORATORY Specimen Anatomical Collection Method Collection Time Receive d Time (Source) Location / / Volume Laterality Blood 02/03/2022 4:55 AM 2 5:09 EDT AM EDT Resulting Agency Comment Spec In Lab Erika Retana MD CHEMISTRY ORDERABLES Performing Organization Address City/State/ZIP [place] [address] (ABNORMAL) Folate, serum (02/03/2022 4:55 AM EDT) athologist Signature Folate Lvl 3.9 (L) 4.8 - 24.2 [facility] ng/mL [facility] LABORATORY Specimen Anatomical Collection Method Collection Time Receive d Time (Source) Location / / Volume Laterality Blood 02/03/2022 4:55 AM 2 5:09 EDT AM EDT Resulting Agency Comment Spec In Lab Erika Retana MD CHEMISTRY ORDERABLES Performing Organization Address City/[facility]/ZIP [place] [address] POCT Glucose (02/02/2022 4:08 PM EDT) athologist Signature POC Glucose 135 65 - 199 [facility] mg/dL [facility] LABORATORY Comment: Supplemental ranges: <140 mg/dL before meals <180 mg/dL all other times of the day Specimen Anatomical Collection Method Collection Time Receive d Time (Source) Location / / Volume Laterality Blood 02/02/2022 4:08 PM 2 4:08 EDT PM EDT Evangelina Flynn MD POINT OF CARE TEST ORDERABLE S Performing Organization Address City/State/ZIP [place] [address] (ABNORMAL) Hemogram (02/02/2022 12:40 PM EDT) athologist Signature WBC 33.6 4.0 - 9.5 [facility] (Critical) x10(3)/[facility] LABORATORY Comment: This result has been called to [facility] by Gadlino Bynum on 02 02 2022 at 1255, and has been read back. RBC 2.29 (L) 4.58 - 5.54 x10(6)/[facility] LABORATORY Hemoglobin 7.4 (L) 13.7 - 16.5 g/dL [facility] LABORATORY Hematocrit 20.9 (L) 40.5 - 48.5 % [facility] LABORATORY MCV 91.3 82.9 - 93.1 [facility] LABORATORY MCH 32.3 (H) 27.5 - 32.1 pg [facility] LABORATORY MCHC 35.4 32.0 - 35.7 g/dL [facility] LABORATORY Platelets 278 145 - 357 x10(3)/[facility] LABORATORY RDWSD 44.7 36.0 - 45.0 [facility] LABORATORY RDWCV 13.9 (H) 11.4 - 13.8 % [facility] LABORATORY MPV 10.2 7.6 - 12.9 [facility] LABORATORY nRBC % Auto 0.0 % [facility] LABORATORY nRBC Abs Auto 0.000 0.000 - 0.000 x10(3)/[facility] LABORATORY Specimen Anatomical Collection Method Collection Time Receive d Time (Source) Location / / Volume Laterality Blood 02/02/2022 12:40 02/02/2022 PM EDT 12:47 PM EDT Resulting Agency Comment Spec In Lab Beck Sanz MD HEMATOLOGY ORDERABLES Performing Organization Address City/State/[place] [address] POCT Glucose (02/02/2022 7:57 AM EDT) athologist [facility] POC Glucose 113 65 - 199 [facility] mg/dL [facility] LABORATORY Comment: Supplemental ranges: <140 mg/dL before meals <180 mg/dL all other times of the day Specimen Anatomical Collection Method Collection Time Receive d Time (Source) Location / / Volume Laterality Blood 02/02/2022 7:57 AM 7:57 EDT AM EDT Evangelina Flynn MD POINT OF CARE TEST ORDERABLE S Performing Organization Address City/State/ZIP Code Phon e Number [address] (ABNORMAL) Iron and TIBC (02/02/2022 2:29 AM EDT) Analysis Performed At Patho logist Time Signature Iron 41 (L) 45 - 160 [facility] mcg/dL [facility] LABORATORY TIBC 149 (L) 250 - 450 [facility] mcg/dL [facility] LABORATORY Iron Saturation 28 20 - 50 % [facility] LABORATORY Specimen Anatomical Collection Method Collection Time Receive d Time (Source) Location / / Volume Laterality Blood Venous Draw / 02/02/2022 2:29 AM 02/03/20 22 2:34 Unknown EDT AM EDT Resulting Agency Comment Spec In Lab Vidhya Peñaloza MD CHEMISTRY ORDERABLES Performing Organization Address City/State/ZIP Code Phon e Number [address] (ABNORMAL) Differential, Automated (02/02/2022 2:29 AM EDT) [facility] Signature Neutrophils % 69.5 % [facility] LABORATORY Neutr Abs (ANC) 21.20 (H) 1.70 - [facility] 6.10 [facility] x10(3)/[facility] L LABORATORY Lymphocytes % 11.0 % [facility] LABORATORY Lymphocytes Abs 3.3 (H) 0.9 - 3.2 [facility] x10(3)/[facility] LABORATORY Monocytes % 8.4 % [facility] LABORATORY Monocyte Abs 2.6 (H) 0.3 - 0.9 [facility] x10(3)/[facility] LABORATORY Eosinophils % 1.6 % [facility] LABORATORY Eosinophils Abs 0.5 (H) 0.0 - 0.4 [facility] x10(3)/[facility] LABORATORY Basophils % 0.5 % [facility] LABORATORY Basophils Abs 0.1 0.0 - 0.1 [facility] x10(3)/[facility] LABORATORY Immature Gran % 9.00 % [facility] LABORATORY Comment: Immature granulocytes(IG's)percentage an d absolute count will include metamyelocytes, myelocytes, and promyelo cytes. Blood smears from CBCs yielding IG's will be scanned manually for concor dance. If this scan disagrees with the automated IG or if promyelocytes are not ed, a manual differential will be performed. Gemini Gran Abs 2.75 (H) 0.00 - 0.04 x10(3)/[facility] LABORATORY Specimen Anatomical Collection Method Collection Time Receive d Time (Source) Location / / Volume Laterality Blood 02/02/2022 2:29 AM 2 2:33 EDT AM EDT Resulting Agency Comment Spec In Lab Dimas Hernandez MD HEMATOLOGY ORDERABLES Performing Organization Address City/State/ZIP [place] [address] (ABNORMAL) Hemogram (02/02/2022 2:29 AM EDT) P athologist Signature WBC 30.5 4.0 - 9.5 [facility] (Critical) x10(3)/[facility] LABORATORY Comment: This result has been called to CARLOS TUBBS by GAMA THOMPSON on 02 02 2022 at 0245, and has been read back. RBC 2.18 (L) 4.58 - 5.54 x10(6)/[facility] LABORATORY Hemoglobin 7.0 (L) 13.7 - 16.5 g/dL [facility] LABORATORY Hematocrit 20.6 (L) 40.5 - 48.5 % [facility] LABORATORY MCV 94.5 (H) 82.9 - 93.1 fL [facility] LABORATORY MCH 32.1 27.5 - 32.1 pg [facility] LABORATORY MCHC 34.0 32.0 - 35.7 g/dL [facility] LABORATORY Platelets 245 145 - 357 x10(3)/[facility] LABORATORY RDWSD 46.5 (H) 36.0 - 45.0 fL [facility] LABORATORY RDWCV 13.7 11.4 - 13.8 % [facility] LABORATORY MPV 10.3 7.6 - 12.9 fL [facility] LABORATORY nRBC % Auto 0.0 % [facility] LABORATORY nRBC Abs Auto 0.000 0.000 - 0.000 x10(3)/[facility] LABORATORY Specimen Anatomical Collection Method Collection Time Receive d Time (Source) Location / / Volume Laterality Blood 02/02/2022 2:29 AM 2 2:33 EDT AM EDT Resulting Agency Comment Spec In Lab Dimas Hernandez MD HEMATOLOGY ORDERABLES Performing Organization Address City/State/ZIP [place] [address] (ABNORMAL) Basic Metabolic Panel (non-fasting) (02/02/2022 2:29 AM EDT) athologist Signature Glucose Lvl 107 65 - 199 [facility] mg/dL [facility] LABORATORY Comment: Diabetes: >=200 mg/dL plus symp toms BUN 63 (H) 10 - 20 mg/dL [facility] LABORATORY Creatinine 4.78 (H) 0.80 - 1.50 mg/dL [facility] LABORATORY Sodium 127 (L) 135 - 145 mmol/L [facility] LABORATORY Potassium 5.2 (H) 3.5 - 5.0 mmol/L [facility] LABORATORY Comment: Please note: ??Patients with WBC >100,00 0 may have falsely elevated Potassium levels. ??For accurate Potassium quantif ication in these patients send serum separator tube (gold top) for subsequent determinations. ??Contact the Clinical Chemistry Laboratory if there are any qu estions. Chloride 97 (L) 98 - 107 mmol/L [facility] LABORATORY CO2 20 (L) 22 - 31 mmol/L [facility] LABORATORY Anion Gap 10 5 - 15 mmol/L [facility] LABORATORY Calcium 6.8 (Critical) 8.5 - 10.5 mg/dL [facility] LABORATORY Comment: Called by: kvng, Read back by: ashley george, Date/Time:02/02/22 03:11. Estimated GFR 16 (L) >=60 mL/min/1.73 m?? [facility] LABORATORY Comment: This patient's estimated [...] Organization Address City/State/ZIP [place] [address] (ABNORMAL) Phosphorus (02/02/2022 2:29 AM EDT) P athologist Signature Phosphorus 5.7 (H) 2.5 - 4.5 [facility] mg/dL [facility] LABORATORY Specimen Anatomical Collection Method Collection Time Receive d Time (Source) Location / / Volume Laterality Blood 02/02/2022 2:29 AM 2 2:33 EDT AM EDT Resulting Agency Comment Spec In Lab Gela Novak MD CHEMISTRY ORDERABLES Performing Organization Address City/State/ZIP Code Phon e Number [address] Magnesium (02/02/2022 2:29 AM EDT) athologist Signature Magnesium 0.95 0.69 - 1.07 [facility] mmol/L [facility] LABORATORY Specimen Anatomical Collection Method Collection Time Receive d Time (Source) Location / / Volume Laterality Blood 02/02/2022 2:29 AM 2 2:33 EDT AM EDT Resulting Agency Comment Spec In Lab Gela Novak MD CHEMISTRY ORDERABLES Performing Organization Address City/State/[place] [address] (ABNORMAL) Hemogram (02/01/2022 6:15 PM EDT) athologist Signature WBC 30.4 4.0 - 9.5 [facility] (Critical) x10(3)/[facility] LABORATORY Comment: This result has been called to FOREST HUFFMAN by Pretty Luna on 02 01 2022 at 1911, and has been read back. RBC 2.33 (L) 4.58 - 5.54 x10(6)/[facility] LABORATORY Hemoglobin 7.7 (L) 13.7 - 16.5 g/dL [facility] LABORATORY Hematocrit 21.9 (L) 40.5 - 48.5 % [facility] LABORATORY MCV 94.0 (H) 82.9 - 93.1 fL [facility] LABORATORY MCH 33.0 (H) 27.5 - 32.1 pg [facility] LABORATORY MCHC 35.2 32.0 - 35.7 g/dL [facility] LABORATORY Platelets 220 145 - 357 x10(3)/[facility] LABORATORY RDWSD 44.9 36.0 - 45.0 [facility] LABORATORY RDWCV 13.3 11.4 - 13.8 % [facility] LABORATORY MPV 10.8 7.6 - 12.9 [facility] LABORATORY nRBC % Auto 0.0 % [facility] LABORATORY nRBC Abs Auto 0.000 0.000 - 0.000 x10(3)/mcL M [facility] LABORATORY Specimen Anatomical Collection Method Collection Time Receive d Time (Source) Location / / Volume Laterality Blood 02/01/2022 6:15 PM 6:29 EDT PM EDT Resulting Agency Comment Spec In Lab Jorge L Ernst INDUSTRIAL PAINTER HEMATOLOGY ORDERABLES Performing Organization Address City/State/[place] [address] (ABNORMAL) Basic Metabolic Panel (non-fasting) (02/01/2022 6:15 PM EDT) athologist Signature Glucose Lvl 121 65 - 199 [facility] mg/dL [facility] LABORATORY Comment: Diabetes: >=200 mg/dL plus symp toms BUN 56 (H) 10 - 20 mg/dL [facility] LABORATORY Creatinine 4.21 (H) 0.80 - 1.50 mg/dL [facility] LABORATORY Sodium 127 (L) 135 - 145 mmol/L [facility] LABORATORY Potassium 5.1 (H) 3.5 - 5.0 mmol/L [facility] LABORATORY Comment: Please note: ??Patients with WBC >100,00 0 may have falsely elevated Potassium levels. ??For accurate Potassium quantif ication in these patients send serum separator tube (gold top) for subsequent determinations. ??Contact the Clinical Chemistry Laboratory if there are any qu estions. Chloride 96 (L) 98 - 107 mmol/L [facility] LABORATORY CO2 21 (L) 22 - 31 mmol/L [facility] LABORATORY Anion Gap 10 5 - 15 mmol/L [facility] LABORATORY Calcium 7.2 (L) 8.5 - 10.5 mg/dL [facility] LABORATORY Estimated GFR 19 (L) >=60 mL/min/1.73 m?? [facility] LABORATORY Comment: This patient's estimated [...] APRN CHEMISTRY ORDERABLES Performing Organization Address City/[facility]/ZIP [place] [address] Transfuse RBC (02/01/2022 5:16 PM EDT) Jorge L Ernst APRN NURSING TREATMENT ORDERABLES - BLOOD ADMIN Transfuse RBC (02/01/2022 5:16 PM EDT) Jorge L Ernst APRN NURSING TREATMENT ORDERABLES - BLOOD ADMIN (ABNORMAL) C. Difficile Screen (02/01/2022 1:55 PM EDT) [facility] Method Time Signature C Diff Screen Positive (A) Negative [facility] LABORATORY Comment: PCR Pos C. diff?? [...] GENERAL ORDER JT Performing Organization Address City/[facility]/ZIP [place] [address] Type and Screen Validity (02/01/2022 12:45 PM EDT) [facility] Method Time Signature T&S only valid [facility] JOSH GILMORE at [facility] LABORATORY Comment: This Type and Screen result is only valid at the [facility] Specimen Anatomical Collection Method Collection Time Receive d Time (Source) Location / / Volume Laterality Blood 02/01/2022 12:45 02/01/2022 PM EDT 12:46 PM EDT Resulting Agency Comment Spec In Lab Jorge L J Klever [place] BLOOD BANK ORDERABLES Performing Organization Address City/[facility]/ZIP Code Phon e Number [address] ABORH Recheck Status (02/01/2022 12:45 PM EDT) [facility] Method Time Signature ABORH Type Completed [facility] LABORATORY Specimen Anatomical Collection Method Collection Time Receive d Time (Source) Location / / Volume Laterality Blood 02/01/2022 12:45 02/01/2022 PM EDT 12:46 PM EDT Resulting Agency Comment Spec In Lab Jorge L Ernst APRN BLOOD BANK ORDERABLES Performing Organization Address City/[facility]/ZIP [place] [address] Antibody screen (02/01/2022 12:45 PM EDT) [facility] Method Time Signature Ab Screen Negative [facility] LABORATORY Expires at 02/04/2022 JOSH GILMORE [id number] on: [facility] LABORATORY Specimen Anatomical Collection Method Collection Time Receive d Time (Source) Location / / Volume Laterality Blood 02/01/2022 12:45 02/01/2022 PM EDT 12:46 PM EDT Resulting Agency Comment Spec In Lab Jorge L Hua Klever [place] BLOOD BANK ORDERABLES Performing Organization Address City/[facility]/ZIP [place] [address] ABO/Rh Typing (02/01/2022 12:45 PM EDT) athologist Signature ABORh Type A Pos [facility] LABORATORY Specimen Anatomical Collection Method Collection Time Receive d Time (Source) Location / / Volume Laterality Blood 02/01/2022 12:45 02/01/2022 PM EDT 12:46 PM EDT Resulting Agency Comment Spec In Lab Jorge L Ernst INDUSTRIAL PAINTER BLOOD BANK ORDERABLES Performing Organization Address City/[facility]/ZIP [facility] Phon e Number [address] Prepare RBC (02/01/2022 12:05 PM EDT) athologist [facility] Dispensed? Yes [facility] LABORATORY Specimen Anatomical Collection Method Collection Time Receive d Time (Source) Location / / Volume Laterality Blood 02/01/2022 12:05 02/01/2022 PM EDT 12:15 PM EDT Jorge L Ernst APRN BLOOD BANK ORDERABLES Performing Organization Address City/[facility]/ZIP [place] [address] (ABNORMAL) Basic Metabolic Panel (non-fasting) (02/01/2022 11:42 AM EDT) athologist [facility] Glucose Lvl 106 65 - 199 [facility] mg/dL [facility] LABORATORY Comment: Diabetes: >=200 mg/dL plus symp toms BUN 49 (H) 10 - 20 mg/dL [facility] LABORATORY Creatinine 3.84 (H) 0.80 - 1.50 mg/dL [facility] LABORATORY Sodium 129 (L) 135 - 145 mmol/L [facility] LABORATORY Potassium 5.1 (H) 3.5 - 5.0 mmol/L [facility] LABORATORY Comment: Please note: ??Patients with WBC >100,00 0 may have falsely elevated Potassium levels. ??For accurate Potassium quantif ication in these patients send serum separator tube (gold top) for subsequent determinations. ??Contact the Clinical Chemistry Laboratory if there are any qu estions. Chloride 98 98 - 107 mmol/L [facility] LABORATORY CO2 21 (L) 22 - 31 mmol/L [facility] LABORATORY Anion Gap 10 5 - 15 mmol/L [facility] LABORATORY Calcium 7.6 (L) 8.5 - 10.5 mg/dL [facility] LABORATORY Estimated GFR 21 (L) >=60 mL/min/1.73 m?? [facility] LABORATORY Comment: This patient's estimated [...] Comment Spec In Lab Jorge L Ernst INDUSTRIAL PAINTER CHEMISTRY ORDERABLES Performing Organization Address City/State/[place] [address] (ABNORMAL) Hemogram (02/01/2022 11:42 AM EDT) P athologist Signature WBC 36.0 4.0 - 9.5 [facility] (Critical) x10(3)/[facility] LABORATORY Comment: This result has been called to DONTA SY by MARCIA KIMBALL on 02 01 2022 at 1154, and has been read back. RBC 1.98 (L) 4.58 - 5.54 x10(6)/[facility] LABORATORY Hemoglobin 6.4 (L) 13.7 - 16.5 g/dL [facility] LABORATORY Hematocrit 18.5 (L) 40.5 - 48.5 % [facility] LABORATORY MCV 93.4 (H) 82.9 - 93.1 fL [facility] LABORATORY MCH 32.3 (H) 27.5 - 32.1 pg [facility] LABORATORY MCHC 34.6 32.0 - 35.7 g/dL [facility] LABORATORY Platelets 239 145 - 357 x10(3)/[facility] LABORATORY RDWSD 45.0 36.0 - 45.0 fL [facility] LABORATORY RDWCV 13.7 11.4 - 13.8 % [facility] LABORATORY MPV 10.6 7.6 - 12.9 fL [facility] LABORATORY nRBC % Auto 0.0 % [facility] LABORATORY nRBC Abs Auto 0.000 0.000 - 0.000 x10(3)/[facility] LABORATORY Specimen Anatomical Collection Method Collection Time Receive d Time (Source) Location / / Volume Laterality Blood 02/01/2022 11:42 02/01/2022 AM EDT 11:46 AM EDT Resulting Agency Comment Spec In Lab Beck Sanz MD HEMATOLOGY ORDERABLES Performing Organization Address City/[facility]/ZIP Code Phon e Number [address] POCT Glucose (02/01/2022 10:42 AM EDT) P athologist Signature POC Glucose 119 65 - 199 [facility] mg/dL [facility] Comment: Supplemental ranges: <140 mg/dL before meals <180 mg/dL all other times of the day Specimen Anatomical Collection Method Collection Time Receive d Time (Source) Location / / Volume Laterality Blood 02/01/2022 10:42 02/01/2022 AM EDT 10:42 AM EDT Beck Sanz MD POINT OF CARE TEST ORDERABLE S Performing Organization Address City/[facility]/ZIP Code Phon e Number [address] Blood culture (02/01/2022 6:35 AM EDT) Patholo gist Method Time Signature Blood Culture No growth JOSH GILMORE at 5 days. [facility] Specimen Anatomical Collection Method Collection Time Receive d Time (Source) Location / / Volume Laterality Blood 02/01/2022 6:35 AM 2 9:38 EDT AM EDT Resulting Agency Comment Spec In Lab Beck Sanz MD MICROBIOLOGY - BLOOD ORDERAB LES Performing Organization Address City/[facility]/ZIP [place] [address] Blood culture (02/01/2022 6:25 AM EDT) Patholo gist Method Time Signature Blood Culture No growth JOSH GILMORE at 5 days. [facility] Specimen (Source) Anatomical Collection Method Collection Time Re ceived Time Location / / Volume Laterality Blood Pediatric 02/01/2022 6:25 2 9:38 AM EDT AM EDT Resulting Agency Comment Spec In Lab Beck Sanz MD MICROBIOLOGY - BLOOD ORDERAB LES Performing Organization Address City/[facility]/ZIP [place] [address] (ABNORMAL) Calcium Ionized Whole Blood, HONORIO (02/01/2022 4:00 AM EDT) Analysis Performed At Patho logist Time Signature pH Honorio 7.43 (H) 7.32 - [facility] 7.42 [facility] ICa Whole 1.13 (L) 1.15 - [facility] Blood 1.33 [facility] mmol/L [facility] Comment: Note: ??Total bilirubin higher than 20 m g/dL may lead to falsely low ionized calcium. Specimen Anatomical Collection Method Collection Time Receive d Time (Source) Location / / Volume Laterality Blood ARTERIAL LINE / 02/01/2022 4:00 AM 2021 4:11 Unknown EDT AM EDT Resulting Agency Comment Spec In Lab Erika Retana MD CHEMISTRY ORDERABLES Performing Organization Address City/[facility]/ZIP [place] [address] (ABNORMAL) Hemogram (02/01/2022 4:00 AM EDT) P athologist Signature WBC 43.9 4.0 - 9.5 JOSH GILMORE (Critical) x10(3)/[facility] LABORATORY Comment: This result has been called to GEENA AMBRIZ by Nicki Bazzi on 02 01 2022 at 0446, and has been read back. RBC 2.20 (L) 4.58 - 5.54 x10(6)/[facility] LABORATORY Hemoglobin 7.1 (L) 13.7 - 16.5 g/dL [facility] Hematocrit 20.3 (L) 40.5 - 48.5 % [facility] LABORATORY MCV 92.3 82.9 - 93.1 [facility] LABORATORY MCH 32.3 (H) 27.5 - 32.1 pg [facility] LABORATORY MCHC 35.0 32.0 - 35.7 g/dL [facility] Platelets 264 145 - 357 x10(3)/[facility] LABORATORY RDWSD 43.8 36.0 - 45.0 [facility] LABORATORY RDWCV 13.2 11.4 - 13.8 % [facility] LABORATORY MPV 10.7 7.6 - 12.9 [facility] LABORATORY nRBC % Auto 0.0 % [facility] LABORATORY nRBC Abs Auto 0.000 0.000 - 0.000 x10(3)/[facility] LABORATORY Specimen Anatomical Collection Method Collection Time Receive d Time (Source) Location / / Volume Laterality Blood 02/01/2022 4:00 AM 4:11 EDT AM EDT Resulting Agency Comment Spec In Lab Beck Sanz MD HEMATOLOGY ORDERABLES Performing Organization Address City/State/[place] [address] (ABNORMAL) Differential, Automated (02/01/2022 1:02 AM EDT) [facility] Method Time Signature Neutrophils % 73.9 % [facility] LABORATORY Neutr Abs (ANC) 30.91 (H) 1.70 - [facility] 6.10 [facility] x10(3)/[facility] LABORATORY Lymphocytes % 7.5 % [facility]OR[facility]ORY Lymphocytes Abs 3.1 0.9 - 3.2 [facility] x10(3)/[facility] LABORATORY Monocytes % 7.7 % [facility] LABOR[facility]ORY Monocyte Abs 3.2 (H) 0.3 - 0.9 [facility] x10(3)/[facility] LABORATORY Eosinophils % 0.5 % [facility]OR[facility]ORY Eosinophils Abs 0.2 0.0 - 0.4 [facility] x10(3)/[facility] LABORATORY Basophils % 0.4 % [facility]OR[facility]ORY Basophils Abs 0.2 (H) 0.0 - 0.1 [facility] x10(3)/[facility] LABORATORY Immature Gran % 10.00 % [facility]ORY Comment: Immature granulocytes(IG's)percentage an d absolute count will include metamyelocytes, myelocytes, and promyelo cytes. Blood smears from CBCs yielding IG's will be scanned manually for concsemaj dannoe. If this scan disagrees with the automated IG or if promyelocytes are not ed, a manual differential will be performed. Gemini Gran Abs 4.18 (H) 0.00 - 0.04 x10(3)/[facility] LABORATORY Specimen Anatomical Collection Method Collection Time Receive d Time (Source) Location / / Volume Laterality Blood 02/01/2022 1:02 AM 2 1:13 EDT AM EDT Resulting Agency Comment Spec In Lab Dimas Hernandez MD HEMATOLOGY ORDERABLES Performing Organization Address City/State/[place] [address] (ABNORMAL) Hemogram (02/01/2022 1:02 AM EDT) P athologist Signature WBC 41.8 4.0 - 9.5 [facility] (Critical) x10(3)/[facility] LABORATORY Comment: This result has been called to PEPE SORENSON by Nicki Bazzi on 02 01 2022 at 0132, and has been read back. RBC 2.23 (L) 4.58 - 5.54 x10(6)/[facility] LABORATORY Hemoglobin 7.2 (L) 13.7 - 16.5 g/dL [facility] Hematocrit 20.6 (L) 40.5 - 48.5 % [facility] LABORATORY MCV 92.4 82.9 - 93.1 [facility] LABORATORY MCH 32.3 (H) 27.5 - 32.1 pg [facility] LABORATORY MCHC 35.0 32.0 - 35.7 g/dL [facility] Platelets 252 145 - 357 x10(3)/[facility] LABORATORY RDWSD 43.6 36.0 - 45.0 [facility] LABORATORY RDWCV 13.3 11.4 - 13.8 % [facility] LABORATORY MPV 10.8 7.6 - 12.9 [facility] LABORATORY nRBC % Auto 0.0 % [facility] LABORATORY nRBC Abs Auto 0.000 0.000 - 0.000 x10(3)/[facility] LABORATORY Specimen Anatomical Collection Method Collection Time Receive d Time (Source) Location / / Volume Laterality Blood 02/01/2022 1:02 AM 1:13 EDT AM EDT Resulting Agency Comment Spec In Lab Dimas Hernandez MD HEMATOLOGY ORDERABLES Performing Organization Address City/State/[place] [address] (ABNORMAL) Calcium Ionized Whole Blood, HONORIO (02/01/2022 1:02 AM EDT) Analysis Performed At Patho logist Time Signature pH Honorio 7.42 7.32 - [facility] 7.42 [facility] ICa Whole 1.09 (L) 1.15 - [facility] Blood 1.33 [facility] mmol/L HOSPITAL LABORATORY Comment: Note: [...] Organization Address City/State/[place] [address] (ABNORMAL) Basic Metabolic Panel (non-fasting) (02/01/2022 1:02 AM EDT) athologist Signature Glucose Lvl 125 65 - 199 [facility] mg/dL [facility] Comment: Diabetes: >=200 mg/dL plus symp toms BUN 50 (H) 10 - 20 mg/dL [facility]ORY Creatinine 3.91 (H) 0.80 - 1.50 mg/dL [facility] LABOR[facility]ORY Sodium 127 (L) 135 - 145 mmol/L [facility] Potassium 5.2 (H) 3.5 - 5.0 mmol/L [facility] Comment: Please note: ??Patients with WBC >100,00 0 may have falsely elevated Potassium levels. ??For accurate Potassium quantif ication in these patients send serum separator tube (gold top) for subsequent determinations. ??Contact the Clinical Chemistry Laboratory if there are any qu estions. Chloride 97 (L) 98 - 107 mmol/L [facility] CO2 21 (L) 22 - 31 mmol/L [facility] Anion Gap 9 5 - 15 mmol/L [facility] Calcium 7.6 (L) 8.5 - 10.5 mg/dL [facility] Estimated GFR 20 (L) >=60 mL/min/1.73 m?? [facility] Comment: This patient's estimated [...] DO CHEMISTRY ORDERABLES Performing Organization Address City/[facility]/ZIP Code Phon e Number [address] (ABNORMAL) Phosphorus (02/01/2022 1:02 AM EDT) P athologist Signature Phosphorus 4.9 (H) 2.5 - 4.5 [facility] mg/dL [facility] Specimen Anatomical Collection Method Collection Time Receive d Time (Source) Location / / Volume Laterality Blood 02/01/2022 1:02 AM 2 1:13 EDT AM EDT Resulting Agency Comment Spec In Lab Gela Novak MD CHEMISTRY ORDERABLES Performing Organization Address City/[facility]/ZIP [place] [address] Magnesium (02/01/2022 1:02 AM EDT) P athologist Signature Magnesium 0.94 0.69 - 1.07 [facility] mmol/L [facility] Specimen Anatomical Collection Method Collection Time Receive d Time (Source) Location / / Volume Laterality Blood 02/01/2022 1:02 AM 2 1:13 EDT AM EDT Resulting Agency Comment Spec In Lab Gela Novak MD CHEMISTRY ORDERABLES Performing Organization Address City/[facility]/ZIP [facility] [place] [address] (ABNORMAL) Calcium Ionized Whole Blood, HONORIO (01/31/2022 10:30 PM EDT) Analysis Performed At Patho logist Time Signature pH Honorio 7.40 7.32 - [facility] 7.42 [facility] ICa Whole 1.02 (L) 1.15 - [facility] Blood 1.33 [facility] mmol/L HOSPITAL LABORATORY Comment: Note: [...] MD CHEMISTRY ORDERABLES Performing Organization Address City/[facility]/ZIP Code Phon e Number [address] POCT Glucose (01/31/2022 7:39 PM EDT) P athologist Signature POC Glucose 150 65 - 199 [facility] mg/dL [facility] Comment: Supplemental ranges: <140 mg/dL before meals <180 mg/dL all other times of the day Specimen Anatomical Collection Method Collection Time Receive d Time (Source) Location / / Volume Laterality Blood 01/31/2022 7:39 PM 7:39 EDT PM EDT Beck Sanz MD POINT OF CARE TEST ORDERABLE S Performing Organization Address [facility] [place] [address] (ABNORMAL) Calcium Ionized Whole Blood, HONORIO (01/31/2022 7:36 PM EDT) Analysis Performed At Patho logist Time Signature pH Honorio 7.44 (H) 7.32 - [facility] 7.42 [facility] ICa Whole 0.98 (L) 1.15 - [facility] Blood 1.33 [facility] mmol/L HOSPITAL LABORATORY Comment: Note: [...] MD CHEMISTRY ORDERABLES Performing Organization Address City/[facility]/ZIP [facility] [place] [address] (ABNORMAL) Electrolytes panel (01/31/2022 4:54 PM EDT) athologist Signature Sodium 126 (L) 135 - 145 [facility] mmol/L [facility] Potassium 5.9 (H) 3.5 - 5.0 [facility] mmol/L [facility] Comment: Please note: ??Patients with WBC >100,00 0 may have falsely elevated Potassium levels. ??For accurate Potassium quantif ication in these patients send serum separator tube (gold top) for subsequent determinations. ??Contact the Clinical Chemistry Laboratory if there are any qu estions. Chloride 95 (L) 98 - 107 mmol/L [facility] CO2 20 (L) 22 - 31 mmol/L [facility] Anion Gap 11 5 - 15 mmol/L [facility] Specimen Anatomical Collection Method Collection Time Receive d Time (Source) Location / / Volume Laterality Blood 01/31/2022 4:54 PM 5:07 EDT PM EDT Resulting Agency Comment Spec In Lab Agnieszka López APRN CHEMISTRY ORDERABLES Performing Organization Address City/State/ZIP Code Phon e Number [address] POCT Glucose (01/31/2022 10:03 AM EDT) athologist [facility] POC Glucose 108 65 - 199 [facility] mg/dL [facility] Comment: Supplemental ranges: <140 mg/dL before meals <180 mg/dL all other times of the day Specimen Anatomical Collection Method Collection Time Receive d Time (Source) Location / / Volume Laterality Blood 01/31/2022 10:03 01/31/2022 AM EDT 10:03 AM EDT Beck Sanz MD POINT OF CARE TEST ORDERABLE S Performing Organization Address City/State/ZIP Code Phon e Number [address] APTT (01/31/2022 8:05 AM EDT) athologist Signature PTT 36 25 - 37 sec [facility] Comment: The PTT is NOT [...] MD HEMATOLOGY ORDERABLES Performing Organization Address City/[facility]/ZIP [place] [address] (ABNORMAL) Electrolytes panel (01/31/2022 6:10 AM EDT) athologist Signature Sodium 126 (L) 135 - 145 [facility] mmol/L [facility] Potassium 5.1 (H) 3.5 - 5.0 [facility] mmol/L [facility] Comment: Please note: ??Patients with WBC >100,00 0 may have falsely elevated Potassium levels. ??For accurate Potassium quantif ication in these patients send serum separator tube (gold top) for subsequent determinations. ??Contact the Clinical Chemistry Laboratory if there are any qu estions. Chloride 94 (L) 98 - 107 mmol/L [facility] CO2 22 22 - 31 mmol/L [facility] Anion Gap 10 5 - 15 mmol/L [facility] Specimen Anatomical Collection Method Collection Time Receive d Time (Source) Location / / Volume Laterality Blood 01/31/2022 6:10 AM 2 6:15 EDT AM EDT Resulting Agency Comment Spec In Lab Erika Retana MD CHEMISTRY ORDERABLES Performing Organization Address City/[facility]/ZIP [place] [address] POCT Glucose (01/31/2022 4:16 AM EDT) athologist Signature POC Glucose 94 65 - 199 [facility] mg/dL [facility] Comment: Supplemental ranges: <140 mg/dL before meals <180 mg/dL all other times of the day Specimen Anatomical Collection Method Collection Time Receive d Time (Source) Location / / Volume Laterality Blood 01/31/2022 4:16 AM 4:16 EDT AM EDT Beck Sanz MD POINT OF CARE TEST ORDERABLE S Performing Organization Address City/State/[place] [address] (ABNORMAL) BLOOD GAS 2 VENOUS (01/31/2022 12:43 AM EDT) Analysis Performed At Patho logist Time Signature pH Honorio 7.44 (H) 7.32 - [facility] 7.42 [facility] pCO2 Honorio 30 (L) 41 - 51 [facility] LABORATORY pO2 Honorio 34 25 - 40 [facility] LABORATORY HCO3 Honorio 20.2 mmol/L [facility] LABORATORY BE Honorio -4.0 mmol/L [facility]ORY Hgb Blood Gas 10.1 (L) 13.7 - [facility] 16.5 g/dL [facility] O2HB Honorio 69.5 % [facility] COHB Honorio 0.1 % [facility] Comment: Nonsmokers: 0.5-1.5% COHB Smokers: Variable, but usually less than 10% Toxic: 20-30% COHB Lethal: Greater than 60% COHB METHB Honorio 0.3 <=1.5 % [facility] Na Whole Blood 120 (L) 135 - 145 mmol/L [facility] K Whole Blood 4.9 3.5 - 5.0 mmol/L [facility] Comment: Please note: Patients with WBC >100,000 may have falsely elevated Potassium levels. Contact the Clinical Chemistry L aboratory if there are any questions. ICa Whole Blood 1.05 (L) 1.15 - 1.33 mmol/L [facility] Comment: Note: ??Total bilirubin higher than 20 m g/dL may lead to falsely low ionized calcium. CL Whole Blood 95 (L) 98 - 107 mmol/L [facility] Gluc Whole Bld 110 65 - 199 mg/dL [facility] Comment: Diabetes: >=200 mg/dL plus symp toms Lactate WB 1.0 0.5 - 2.2 mmol/L [facility] BGas Source Venous [facility] Specimen Anatomical Collection Method Collection Time Receive d Time (Source) Location / / Volume Laterality Blood 01/31/2022 12:43 01/31/2022 AM EDT 12:43 AM EDT Beck Sanz MD CHEMISTRY ORDERABLES Performing Organization Address City/State/[place] [address] (ABNORMAL) Differential, Automated (01/31/2022 12:42 AM EDT) [facility] Method Time Signature Neutrophils % 65.8 % [facility]ORY Neutr Abs (ANC) 23.59 (H) 1.70 - [facility] 6.10 [facility] x10(3)/[facility] LABORATORY Lymphocytes % 8.0 % [facility]ORY Lymphocytes Abs 2.9 0.9 - 3.2 [facility] x10(3)[facility] LABORATORY Monocytes % 9.6 % [facility]ORY Monocyte Abs 3.4 (H) 0.3 - 0.9 [facility] x10(3)[facility] LABORATORY Eosinophils % 0.9 % [facility]ORY Eosinophils Abs 0.3 0.0 - 0.4 [facility] x10(3)[facility] LABORATORY Basophils % 0.5 % [facility] Basophils Abs 0.2 (H) 0.0 - 0.1 [facility] x10(3)[facility] LABORATORY Immature Gran % 15.20 % [facility] Comment: Immature granulocytes(IG's)percentage an d absolute count will include metamyelocytes, myelocytes, and promyelo cytes. Blood smears from CBCs yielding IG's will be scanned manually for concor dance. If this scan disagrees with the automated IG or if promyelocytes are not ed, a manual differential will be performed. Gemini Gran Abs 5.46 (H) 0.00 - 0.04 x10(3)/[facility] LABORATORY Specimen Anatomical Collection Method Collection Time Receive d Time (Source) Location / / Volume Laterality Blood 01/31/2022 12:42 01/31/2022 AM EDT 12:49 AM EDT Resulting Agency Comment Spec In Lab Cristina Hillman INDUSTRIAL PAINTER HEMATOLOGY ORDERABLES Performing Organization Address City/State/[place] [address] (ABNORMAL) Hemogram (01/31/2022 12:42 AM EDT) athologist Signature WBC 35.8 4.0 - 9.5 [facility] (Critical) x10(3)/[facility] LABORATORY Comment: This result has been called to PAPITO Boss by Reymundo De Luna on 01 31 2022 at 0103, and has been read back. RBC 2.84 (L) 4.58 - 5.54 x10(6)/[facility] LABORATORY Hemoglobin 9.1 (L) 13.7 - 16.5 g/dL [facility] Hematocrit 25.9 (L) 40.5 - 48.5 % [facility] LABORATORY MCV 91.2 82.9 - 93.1 [facility] LABORATORY MCH 32.0 27.5 - 32.1 pg [facility] LABORATORY MCHC 35.1 32.0 - 35.7 g/dL [facility] Platelets 195 145 - 357 x10(3)/[facility] LABORATORY RDWSD 42.7 36.0 - 45.0 [facility] LABORATORY RDWCV 13.2 11.4 - 13.8 % [facility] LABORATORY MPV 10.6 7.6 - 12.9 [facility] LABORATORY nRBC % Auto 0.0 % [facility] nRBC Abs Auto 0.000 0.000 - 0.000 x10(3)/[facility] LABORATORY Specimen Anatomical Collection Method Collection Time Receive d Time (Source) Location / / Volume Laterality Blood 01/31/2022 12:42 01/31/2022 AM EDT 12:49 AM EDT Resulting Agency Comment Spec In Lab Cristina Hillman APRN HEMATOLOGY ORDERABLES Performing Organization Address City/[facility]/ZIP Code Phon e Number [place] [id number]OS[address] LAB[address]ORY Drive (ABNORMAL) Creatinine (01/31/2022 12:42 AM EDT) Analysis Performed At Patho logist Time Signature Creatinine 4.01 (H) 0.80 - JOSH VELASQUEZMANDO 1.50 mg/dL [facility] Estimated GFR 20 (L) >=60 JOSH GILMORE mL/min/1.[address]? [facility] Comment: This patient's estimated [...] Organization Address City/State/ZIP Code Phon e Number [place] [phone]OS[address] Drive (ABNORMAL) BUN (01/31/2022 12:42 AM EDT) P athologist Signature BUN 50 (H) 10 - 20 JOSH MANDO mg/dL [facility] Specimen Anatomical Collection Method Collection Time Receive d Time (Source) Location / / Volume Laterality Blood 01/31/2022 12:42 01/31/2022 AM EDT 12:49 AM EDT Resulting Agency Comment Spec In Lab Beck Sanz MD CHEMISTRY ORDERABLES Performing Organization Address City/[facility]/ZIP [place] [address] (ABNORMAL) Electrolytes panel (01/31/2022 12:42 AM EDT) P athologist Signature Sodium 123 (L) 135 - 145 [facility] mmol/[facility] LABORATORY Potassium 5.1 (H) 3.5 - 5.0 [facility] mmol/L [facility] Comment: Please note: ??Patients with WBC >100,00 0 may have falsely elevated Potassium levels. ??For accurate Potassium quantif ication in these patients send serum separator tube (gold top) for subsequent determinations. ??Contact the Clinical Chemistry Laboratory if there are any qu estions. Chloride 94 (L) 98 - 107 mmol/L [facility]ORY CO2 21 (L) 22 - 31 mmol/L [facility]ORY Anion Gap 8 5 - 15 mmol/L [facility]OR[facility]ORY Specimen Anatomical Collection Method Collection Time Receive d Time (Source) Location / / Volume Laterality Blood 01/31/2022 12:42 01/31/2022 AM EDT 12:49 AM EDT Resulting Agency Comment Spec In Lab Erika Retana MD CHEMISTRY ORDERABLES Performing Organization Address City/[facility]/ZIP [place] [address] (ABNORMAL) Calcium Ionized Whole Blood, HONORIO (01/30/2022 8:17 PM EDT) Analysis Performed At Patho logist Time Signature pH Honorio 7.42 7.32 - [facility] 7.42 [facility] ICa Whole 0.99 (L) 1.15 - [facility] Blood 1.33 [facility] mmol/L [facility] Comment: Note: ??Total bilirubin higher than 20 m g/dL may lead to falsely low ionized calcium. Specimen Anatomical Collection Method Collection Time Receive d Time (Source) Location / / Volume Laterality Blood ARTERIAL LINE / 01/30/2022 8:17 PM 2021 8:24 Unknown EDT PM EDT Resulting Agency Comment Spec In Lab Erika Retana MD CHEMISTRY ORDERABLES Performing Organization Address City/[facility]/ZIP Code Phon e Number [address] APTT (01/30/2022 8:17 PM EDT) athologist Signature PTT 30 25 - 37 sec [facility] LABORATORY Comment: The PTT is NOT [...] MD HEMATOLOGY ORDERABLES Performing Organization Address City/[facility]/ZIP [place] [address] POCT Glucose (01/30/2022 8:00 PM EDT) athologist Signature POC Glucose 144 65 - 199 [facility] mg/dL [facility] LABORAT[facility] Comment: Supplemental ranges: <140 mg/dL before meals <180 mg/dL all other times of the day Specimen Anatomical Collection Method Collection Time Receive d Time (Source) Location / / Volume Laterality Blood 01/30/2022 8:00 PM 2 8:00 EDT PM EDT Beck Sanz MD POINT OF CARE TEST ORDERABLE S Performing Organization Address City/State/ZIP [place] [address] Chest Abdomen Pelvis [...] who have questions please contact the health career technical education teacher that requested your imaging first. ? Narrative [...] ho have questions please contact the health career technical education teacher that requested your imaging first. Agnieszka López APRN IMG CT ORDERABLES (ABNORMAL) Electrolytes panel (01/30/2022 12:23 PM EDT) athologist Signature Sodium 122 (L) 135 - 145 [facility] mmol/L [facility] Potassium 5.2 (H) 3.5 - 5.0 [facility] mmol/L [facility] Comment: Please note: ??Patients with WBC >100,00 0 may have falsely elevated Potassium levels. ??For accurate Potassium quantif ication in these patients send serum separator tube (gold top) for subsequent determinations. ??Contact the Clinical Chemistry Laboratory if there are any qu estions. Chloride 92 (L) 98 - 107 mmol/L [facility] LABOR[facility] CO2 21 (L) 22 - 31 mmol/L [facility]OR[facility] Anion Gap 9 5 - 15 mmol/L [facility] LABORATORY Specimen Anatomical Collection Method Collection Time Receive d Time (Source) Location / / Volume Laterality Blood 01/30/2022 12:23 01/30/2022 PM EDT 12:33 PM EDT Resulting Agency Comment Spec In Lab Agnieszka López APRN CHEMISTRY ORDERABLES Performing Organization Address City/State/[place] [address] POCT Glucose (01/30/2022 10:42 AM EDT) athologist Signature POC Glucose 140 65 - 199 [facility] mg/dL [facility] Comment: Supplemental ranges: <140 mg/dL before meals <180 mg/dL all other times of the day Specimen Anatomical Collection Method Collection Time Receive d Time (Source) Location / / Volume Laterality Blood 01/30/2022 10:42 01/30/2022 AM EDT 10:42 AM EDT Beck Sanz MD POINT OF CARE TEST ORDERABLE S Performing Organization Address City/[facility]/ZIP Code Phon e Number [place] [id number]OS[address] LAB[address]ORY Drive EKG 12 Lead (01/30/2022 9:18 AM EDT) Component Value Ref Range Test Analysis Performed Pathologis t Method Time At Signature Ventricular rate 111 BPM MUSE SYSTEM Atrial Rate 111 BPM MUSE SYSTEM P-R Interval 136 ms MUSE SYSTEM QRS Duration 84 ms MUSE SYSTEM Q-T Interval 308 ms MUSE SYSTEM QTC Calculated 418 ms MUSE SYSTEM (Bezet) Calculated P Colton 13 degrees MUSE SYSTEM Calculated R [place] 31 degrees MUSE SYSTEM Calculated T Colton -8 degrees MUSE SYSTEM INTERPRETATION Sinus tachycardia MUSE SY STEM Nonspecific T wave abnormality Abnormal ECG When compared with ECG of 23-JAN-2022 00:46, heart rate has slowed Confirmed by Clem Guo ([id number]) on 02/01/2022 1:23:54 PM Specimen Anatomical Collection Method Collection Time Receive d Time (Source) Location / / Volume Laterality 01/30/2022 9:18 AM 1:23 EDT PM EDT Anthony Harvey INDUSTRIAL PAINTER ECG ORDERABLES Performing Organization Address [facility]/ZIP Code Phon e Number MUSE SYSTEM POCT Glucose (01/30/2022 4:21 AM EDT) P athologist Signature POC Glucose 119 65 - 199 [facility] mg/dL [facility] Comment: Supplemental ranges: <140 mg/dL before meals <180 mg/dL all other times of the day Specimen Anatomical Collection Method Collection Time Receive d Time (Source) Location / / Volume Laterality Blood 01/30/2022 4:21 AM 2 4:21 EDT AM EDT Beck Sanz MD POINT OF CARE TEST ORDERABLE S Performing Organization Address City/[facility]/ZIP Code Phon e Number [place] [id number]OSPITAL LAB[address]ORY [address] Scan, Peripheral Blood (01/30/2022 4:10 AM EDT) Patholo gist Method Time Signature Plat Estimate Normal [facility] LABORATORY RBC Morphology Normal [facility] LABORATORY Toxic Present [facility] LABORATORY Dohle Bodies Present [facility] LABORATORY Specimen Anatomical Collection Method Collection Time Receive d Time (Source) Location / / Volume Laterality Blood 01/30/2022 4:10 AM 4:36 EDT AM EDT Resulting Agency Comment Spec In Lab Cristina Hillman INDUSTRIAL PAINTER HEMATOLOGY ORDERABLES Performing Organization Address City/State/[place] [address] (ABNORMAL) Differential, Automated (01/30/2022 4:10 AM EDT) [facility] Method Time Signature Neutrophils % 60.7 % [facility] LABORATORY Neutr Abs (ANC) 23.73 (H) 1.70 - [facility] 6.10 [facility] x10(3)/[facility] LABORATORY Lymphocytes % 7.2 % [facility] LABORATORY Lymphocytes Abs 2.8 0.9 - 3.2 [facility] x10(3)/[facility] LABORATORY Monocytes % 9.3 % [facility] LABORATORY Monocyte Abs 3.6 (H) 0.3 - 0.9 [facility] x10(3)/[facility] LABORATORY Eosinophils % 0.4 % [facility] LABORATORY Eosinophils Abs 0.2 0.0 - 0.4 [facility] x10(3)/[facility] LABORATORY Basophils % 0.2 % [facility] LABORATORY Basophils Abs 0.1 0.0 - 0.1 [facility] x10(3)/[facility] LABORATORY Immature Gran % 22.20 % [facility] LABORATORY Comment: Immature granulocytes(IG's)percentage an d absolute count will include metamyelocytes, myelocytes, and promyelo cytes. Blood smears from CBCs yielding IG's will be scanned manually for concor dance. If this scan disagrees with the automated IG or if promyelocytes are not ed, a manual differential will be performed. Gemini Gran Abs 8.67 (H) 0.00 - 0.04 x10(3)/[facility] LABORATORY Specimen Anatomical Collection Method Collection Time Receive d Time (Source) Location / / Volume Laterality Blood 01/30/2022 4:10 AM 2 4:36 EDT AM EDT Resulting Agency Comment Spec In Lab Gemma B Rafy AVENDAÑO HEMATOLOGY ORDERABLES Performing Organization Address City/State/[place] [address] (ABNORMAL) Hemogram (01/30/2022 4:10 AM EDT) P athologist Signature WBC 39.1 4.0 - 9.5 [facility] (Critical) x10(3)/[facility] LABORATORY Comment: This result has been called to BECK GUILLEN by Shelli Sauceda on 01 30 2022 at 0448, and has been read back. RBC 3.18 (L) 4.58 - 5.54 x10(6)/[facility] LABORATORY Hemoglobin 10.5 (L) 13.7 - 16.5 g/dL [facility] LABORATORY Hematocrit 29.3 (L) 40.5 - 48.5 % [facility] LABORATORY MCV 92.1 82.9 - 93.1 [facility] LABORATORY MCH 33.0 (H) 27.5 - 32.1 pg [facility] LABORATORY MCHC 35.8 (H) 32.0 - 35.7 g/dL [facility] LABORATORY Platelets 195 145 - 357 x10(3)/[facility] LABORATORY RDWSD 43.3 36.0 - 45.0 [facility] LABORATORY RDWCV 13.0 11.4 - 13.8 % [facility] LABORATORY MPV 10.6 7.6 - 12.9 [facility] LABORATORY nRBC % Auto 0.0 % [facility] LABORATORY nRBC Abs Auto 0.000 0.000 - 0.000 x10(3)/[facility] LABORATORY Specimen Anatomical Collection Method Collection Time Receive d Time (Source) Location / / Volume Laterality Blood 01/30/2022 4:10 AM 2 4:36 EDT AM EDT Resulting Agency Comment Spec In Lab Gemma B Pentland INDUSTRIAL PAINTER HEMATOLOGY ORDERABLES Performing Organization Address City/State/[place] [address] (ABNORMAL) Blood Gas Venous ([facility]) (01/30/2022 4:10 AM EDT) Analysis Performed At Patho logist Time Signature pH Honorio 7.43 (H) 7.32 - [facility] 7.42 [facility] LABORATORY pCO2 Honorio 34 (L) 41 - 51 [facility] LABORATORY pO2 Honorio 35 25 - 40 [facility] LABORATORY HCO3 Honorio 22.2 mmol/L [facility] LABORATORY BE Honorio -2.2 mmol/L [facility] LABORATORY Hgb Blood Gas 11.6 (L) 13.7 - [facility] 16.5 g/dL [facility] O2HB Honorio 72.9 % [facility] LABORATORY COHB Honorio 1.0 % [facility] LABORATORY Comment: Nonsmokers: 0.5-1.5% COHB Smokers: Variable, but usually less than 10% Toxic: 20-30% COHB Lethal: Greater than 60% COHB METHB Honorio 0.3 <=1.5 % [facility] LABORATORY Na Whole Blood 123 (L) 135 - 145 mmol/L [facility] LABORATORY K Whole Blood 5.1 (H) 3.5 - 5.0 mmol/L [facility] LABORATORY Comment: Please note: Patients with WBC >100,000 may have falsely elevated Potassium levels. Contact the Clinical Chemistry L aboratory if there are any questions. ICa Whole Blood 1.05 (L) 1.15 - 1.33 mmol/L [facility] LABORATORY Comment: Note: ??Total bilirubin higher than 20 m g/dL may lead to falsely low ionized calcium. CL Whole Blood 97 (L) 98 - 107 mmol/L [facility] LABORATORY Gluc Whole Bld 142 65 - 199 mg/dL [facility] LABORATORY Comment: Diabetes: >=200 mg/dL plus [...] MD CHEMISTRY ORDERABLES Performing Organization Address City/[facility]/ZIP [place] [address] (ABNORMAL) CK (01/30/2022 4:10 AM EDT) P athologist Signature CK, Total 5,685 (H) 0 - 200 [facility] unit/[facility] LABORATORY Specimen Anatomical Collection Method Collection Time Receive d Time (Source) Location / / Volume Laterality Blood 01/30/2022 4:10 AM 2 4:36 EDT AM EDT Resulting Agency Comment Spec In Lab Cristina Hillman APRN CHEMISTRY ORDERABLES Performing Organization Address City/[facility]/ZIP [place] [address] (ABNORMAL) Basic Metabolic Panel (non-fasting) (01/30/2022 4:10 AM EDT) athologist [facility] Glucose Lvl 146 65 - 199 [facility] mg/dL [facility] Comment: Diabetes: >=200 mg/dL plus symp toms BUN 43 (H) 10 - 20 mg/dL [facility] LABORATORY Creatinine 3.71 (H) 0.80 - 1.50 mg/dL [facility] LABORATORY Sodium 127 (L) 135 - 145 mmol/L [facility] LABORATORY Potassium 5.3 (H) 3.5 - 5.0 mmol/L [facility] LABORATORY Comment: Please note: ??Patients with WBC >100,00 0 may have falsely elevated Potassium levels. ??For accurate Potassium quantif ication in these patients send serum separator tube (gold top) for subsequent determinations. ??Contact the Clinical Chemistry Laboratory if there are any qu estions. Chloride 96 (L) 98 - 107 mmol/L [facility] LABORATORY CO2 22 22 - 31 mmol/L [facility] LABOR[facility] Anion Gap 9 5 - 15 mmol/L [facility] LABORATORY Calcium 7.5 (L) 8.5 - 10.5 mg/dL [facility] LABORATORY Estimated GFR 22 (L) >=60 mL/min/1.73 m?? [facility] LABOR[facility] Comment: This patient's estimated [...] DO CHEMISTRY ORDERABLES Performing Organization Address City/[facility]/ZIP Code Phon e Number [address] Phosphorus (01/30/2022 4:10 AM EDT) P athologist Signature Phosphorus 4.0 2.5 - 4.5 [facility] mg/dL [facility] LABORATORY Specimen Anatomical Collection Method Collection Time Receive d Time (Source) Location / / Volume Laterality Blood 01/30/2022 4:10 AM 2 4:36 EDT AM EDT Resulting Agency Comment Spec In Lab Gela Novak MD CHEMISTRY ORDERABLES Performing Organization Address City/[facility]/ZIP Code Phon e Number [address] Magnesium (01/30/2022 4:10 AM EDT) athologist Signature Magnesium 0.92 0.69 - 1.07 [facility] mmol/L [facility] LABORATORY Specimen Anatomical Collection Method Collection Time Receive d Time (Source) Location / / Volume Laterality Blood 01/30/2022 4:10 AM 2 4:36 EDT AM EDT Resulting Agency Comment Spec In Lab Gela Novak MD CHEMISTRY ORDERABLES Performing Organization Address City/[facility]/ZIP [place] [address] POCT Glucose (01/30/2022 12:07 AM EDT) athologist Signature POC Glucose 115 65 - 199 [facility] mg/dL [facility] Comment: Supplemental ranges: <140 mg/dL before meals <180 mg/dL all other times of the day Specimen Anatomical Collection Method Collection Time Receive d Time (Source) Location / / Volume Laterality Blood 01/30/2022 12:07 01/30/2022 AM EDT 12:07 AM EDT Beck Sanz MD POINT OF CARE TEST ORDERABLE S Performing Organization Address City/[facility]/ZIP Code Phon e Number [address] POCT Glucose (01/29/2022 9:40 PM EDT) athologist Signature POC Glucose 128 65 - 199 [facility] mg/dL [facility] Comment: Supplemental ranges: <140 mg/dL before meals <180 mg/dL all other times of the day Specimen Anatomical Collection Method Collection Time Receive d Time (Source) Location / / Volume Laterality Blood 01/29/2022 9:40 PM 2 9:40 EDT PM EDT Beck Sanz MD POINT OF CARE TEST ORDERABLE S Performing Organization Address City/[facility]/ZIP Code Phon e Number [address] (ABNORMAL) Phosphorus (01/29/2022 9:35 PM EDT) athologist Signature Phosphorus 4.9 (H) 2.5 - 4.5 [facility] mg/dL [facility] LABORATORY Specimen Anatomical Collection Method Collection Time Receive d Time (Source) Location / / Volume Laterality Blood 01/29/2022 9:35 PM 2 9:46 EDT PM EDT Resulting Agency Comment Spec In Lab Angelina Reynoso MD CHEMISTRY ORDERABLES Performing Organization Address City/State/ZIP Code Phon e Number [address] Scan, Peripheral Blood (01/29/2022 2:55 AM EDT) P athologist Signature Plat Estimate Normal [facility] LABORATORY RBC Morphology Normal [facility] LABORATORY Specimen Anatomical Collection Method Collection Time Receive d Time (Source) Location / / Volume Laterality Blood 01/29/2022 2:55 AM 2 3:06 EDT AM EDT Resulting Agency Comment Spec In Lab Cristina Hillman APRN HEMATOLOGY ORDERABLES Performing Organization Address City/[facility]/ZIP [place] [address] (ABNORMAL) Differential, Automated (01/29/2022 2:55 AM EDT) Patholo gist Method Time Signature Neutrophils % 47.3 % [facility] LABORATORY Neutr Abs (ANC) 13.86 (H) 1.70 - [facility] 6.10 [facility] x10(3)/[facility] LABORATORY Lymphocytes % 8.8 % [facility] LABORATORY Lymphocytes Abs 2.6 0.9 - 3.2 [facility] x10(3)/[facility] LABORATORY Monocytes % 9.4 % [facility] LABORATORY Monocyte Abs 2.8 (H) 0.3 - 0.9 [facility] x10(3)/[facility] LABORATORY Eosinophils % 1.1 % [facility] LABORATORY Eosinophils Abs 0.3 0.0 - 0.4 [facility] x10(3)/[facility] LABORATORY Basophils % 0.2 % [facility] LABORATORY Basophils Abs 0.1 0.0 - 0.1 [facility] x10(3)/[facility] LABORATORY Immature Gran % 33.20 % [facility] LABORATORY Comment: Immature granulocytes(IG's)percentage an d absolute count will include metamyelocytes, myelocytes, and promyelo cytes. Blood smears from CBCs yielding IG's will be scanned manually for concor dance. If this scan disagrees with the automated IG or if promyelocytes are not ed, a manual differential will be performed. Gemini Gran Abs 9.75 (H) 0.00 - 0.04 x10(3)/[facility] LABORATORY Specimen Anatomical Collection Method Collection Time Receive d Time (Source) Location / / Volume Laterality Blood 01/29/2022 2:55 AM 3:06 EDT AM EDT Resulting Agency Comment Spec In Lab Cristina Hillman APRN HEMATOLOGY ORDERABLES Performing Organization Address City/State/[place] [address] (ABNORMAL) Hemogram (01/29/2022 2:55 AM EDT) Analysis Performed At Patho logist Time Signature WBC 29.4 (H) 4.0 - 9.5 [facility] x10(3)/[facility] LABORATORY RBC 3.34 (L) 4.58 - [facility] MANDO 5.54 [facility] x10(6)/[facility] LABORATORY Hemoglobin 10.7 (L) 13.7 - [facility] g/dL [facility] LABORATORY Hematocrit 31.3 (L) 40.5 - [facility] MANDO 48.5 % [facility] LABORATORY MCV 93.7 (H) 82.9 - [facility] MANDO 93.1 [facility] LABORATORY MCH 32.0 27.5 - [facility] MANDO 32.1 pg [facility] LABORATORY MCHC 34.2 32.0 - [facility] MANDO 35.7 g/dL [facility] LABORATORY Platelets 148 145 - 357 [facility] x10(3)/[facility] LABORATORY RDWSD 44.0 36.0 - [facility] MANDO 45.0 [facility] LABORATORY RDWCV 13.0 11.4 - [facility] MANDO 13.8 % [facility] LABORATORY MPV 10.7 7.6 - 12.9 [facility] LABORATORY nRBC % Auto 0.0 % [facility] LABORATORY nRBC Abs Auto 0.000 0.000 - [facility] 0.000 [facility] x10(3)/[facility] LABORATORY Specimen Anatomical Collection Method Collection Time Receive d Time (Source) Location / / Volume Laterality Blood 01/29/2022 2:55 AM 2 3:06 EDT AM EDT Resulting Agency Comment Spec In Lab Gemma B Pentland INDUSTRIAL PAINTER HEMATOLOGY ORDERABLES Performing Organization Address City/[facility]/ZIP Code Phon e Number [address] (ABNORMAL) CK (01/29/2022 2:55 AM EDT) athologist Signature CK, Total 7,723 (H) 0 - 200 [facility] unit/L [facility] LABORATORY Comment: result rechecked-KS Specimen Anatomical Collection Method Collection Time Receive d Time (Source) Location / / Volume Laterality Blood 01/29/2022 2:55 AM 2 3:06 EDT AM EDT Resulting Agency Comment Spec In Lab Gemma B Pentland INDUSTRIAL PAINTER CHEMISTRY ORDERABLES Performing Organization Address City/[facility]/ZIP [place] [address] (ABNORMAL) Basic Metabolic Panel (non-fasting) (01/29/2022 2:55 AM EDT) P athologist Signature Glucose Lvl 124 65 - 199 [facility] mg/dL [facility] Comment: Diabetes: >=200 mg/dL plus symp toms BUN 34 (H) 10 - 20 mg/dL [facility] LABORATORY Comment: result rechecked-KS Creatinine 3.22 (H) 0.80 - 1.50 mg/dL [facility] LABORATORY Comment: result rechecked-KS Sodium 130 (L) 135 - 145 mmol/L [facility] LABORATORY Potassium 4.8 3.5 - 5.0 mmol/L [facility] LABORATORY Comment: Please note: ??Patients with WBC >100,00 0 may have falsely elevated Potassium levels. ??For accurate Potassium quantif ication in these patients send serum separator tube (gold top) for subsequent determinations. ??Contact the Clinical Chemistry Laboratory if there are any qu estions. Chloride 98 98 - 107 mmol/L [facility] LABORATORY CO2 24 22 - 31 mmol/L [facility] LABORATORY Anion Gap 8 5 - 15 mmol/L [facility] LABORATORY Calcium 7.6 (L) 8.5 - 10.5 mg/dL [facility] LABORATORY Estimated GFR 26 (L) >=60 mL/min/1.73 m?? [facility] LABORATORY Comment: This patient's estimated [...] Organization Address City/State/[place] [address] Phosphorus (01/29/2022 2:55 AM EDT) P athologist Signature Phosphorus 3.2 2.5 - 4.5 [facility] mg/dL [facility] LABORATORY Specimen Anatomical Collection Method Collection Time Receive d Time (Source) Location / / Volume Laterality Blood 01/29/2022 2:55 AM 2 3:06 EDT AM EDT Resulting Agency Comment Spec In Lab Gela Novak MD CHEMISTRY ORDERABLES Performing Organization Address City/State/ZIP Code Phon e Number [place] [facility] Magnesium (01/29/2022 2:55 AM EDT) P athologist Signature Magnesium 0.85 0.69 - 1.07 [facility] mmol/L [facility] LABORATORY Specimen Anatomical Collection Method Collection Time Receive d Time (Source) Location / / Volume Laterality Blood 01/29/2022 2:55 AM 2 3:06 EDT AM EDT Resulting Agency Comment Spec In Lab Gela Novak MD CHEMISTRY ORDERABLES Performing Organization Address City/State/ZIP [place] [address] (ABNORMAL) Blood Gas Venous ([facility]) (01/28/2022 1:25 PM EDT) Analysis Performed At Patho logist Time Signature pH Honorio 7.40 7.32 - [facility] 7.42 [facility] LABORATORY pCO2 Honorio 44 41 - 51 [facility] LABORATORY pO2 Honorio 37 25 - 40 [facility] LABORATORY HCO3 Honorio 26.5 mmol/L [facility] LABORATORY BE Honorio 1.6 mmol/L [facility] LABORATORY Hgb Blood Gas 12.1 (L) 13.7 - [facility] 16.5 g/dL [facility]OR[facility] O2HB Honorio 71.4 % [facility] LABORATORY COHB Honorio 0.7 % [facility] LABORATORY Comment: Nonsmokers: 0.5-1.5% COHB Smokers: Variable, but usually less than 10% Toxic: 20-30% COHB Lethal: Greater than 60% COHB METHB Honorio 0.1 <=1.5 % [facility] LABORATORY Na Whole Blood 130 (L) 135 - 145 mmol/L [facility] LABORATORY K Whole Blood 4.6 3.5 - 5.0 mmol/L [facility] LABORATORY Comment: Please note: Patients with WBC >100,000 may have falsely elevated Potassium levels. Contact the Clinical Chemistry L aboratory if there are any questions. ICa Whole Blood 1.16 1.15 - 1.33 mmol/L [facility] LABORATORY Comment: Note: ??Total bilirubin higher than 20 m g/dL may lead to falsely low ionized calcium. CL Whole Blood 103 98 - 107 mmol/L [facility] LABORATORY Gluc Whole Bld 130 65 - 199 mg/dL [facility] LABOR[facility] Comment: Diabetes: >=200 mg/dL plus symp toms Lactate WB 1.0 0.5 - 2.2 mmol/L [facility] LABORATORY BGas Source Venous [facility] LABORAT[facility] Temp Honorio 37.3 [employer] [facility] Specimen Anatomical Collection Method Collection Time Receive d Time (Source) Location / / Volume Laterality Blood Venous Draw / 01/28/2022 1:25 PM 01/29/20 1:36 Unknown EDT PM EDT Resulting Agency Comment Spec In Lab Angelina Reynoso MD CHEMISTRY ORDERABLES Performing Organization Address City/State/[place] [address] (ABNORMAL) Blood Gas Venous (NLH) (01/28/2022 6:20 AM EDT) Analysis Performed At Patho logist Time Signature pH Honorio 7.41 7.32 - [facility] 7.42 [facility] pCO2 Honorio 42 41 - 51 [facility] LABORATORY pO2 Honorio 30 25 - 40 [facility] LABORATORY HCO3 Honorio 26.3 mmol/L [facility] BE Honorio 1.7 mmol/L [facility] Hgb Blood Gas 12.4 (L) 13.7 - [facility] 16.5 g/dL [facility] O2HB Honorio 64.2 % [facility] COHB Honorio 0.8 % [facility] Comment: Nonsmokers: 0.5-1.5% COHB Smokers: Variable, but usually less than 10% Toxic: 20-30% COHB Lethal: Greater than 60% COHB METHB Honorio 0.3 <=1.5 % [facility] Na Whole Blood 130 (L) 135 - 145 mmol/L [facility] K Whole Blood 4.8 3.5 - 5.0 mmol/L [facility] Comment: Please note: Patients with WBC >100,000 may have falsely elevated Potassium levels. Contact the Clinical Chemistry L aboratory if there are any questions. ICa Whole Blood 1.17 1.15 - 1.33 mmol/L [facility] Comment: Note: ??Total bilirubin higher than 20 m g/dL may lead to falsely low ionized calcium. CL Whole Blood 103 98 - 107 mmol/L [facility] Gluc Whole Bld 112 65 - 199 mg/dL [facility] Comment: Diabetes: >=200 mg/dL plus symp toms Lactate WB 1.1 0.5 - 2.2 mmol/L [facility] FIO2 Honorio 21 % [facility] BGas Source Venous [facility] Specimen Anatomical Collection Method Collection Time Receive d Time (Source) Location / / Volume Laterality Blood Venous Draw / 01/28/2022 6:20 AM 01/29/20 22 6:28 Unknown EDT AM EDT Resulting Agency Comment Spec In Lab Angelina Reynoso MD CHEMISTRY ORDERABLES Performing Organization Address City/State/ZIP Code Phon e Number [address] (ABNORMAL) CK (01/28/2022 6:20 AM EDT) P athologist Signature CK, Total 11,287 (H) 0 - 200 [facility] unit/[facility] Specimen Anatomical Collection Method Collection Time Receive d Time (Source) Location / / Volume Laterality Blood 01/28/2022 6:20 AM 2 6:27 EDT AM EDT Resulting Agency Comment Spec In Lab Cristina Hillman APRN CHEMISTRY ORDERABLES Performing Organization Address City/[facility]/ZIP Code Phon e Number [address] (ABNORMAL) _Urinalysis with microscopic (01/28/2022 6:00 AM EDT) Patholo gist Method Time Signature Glucose UA 100 (A) Negative [facility] mg/dL [facility] Protein UA >=300 (A) Negative [facility] Bilirubin UA Negative Negative [facility] mg/dL [facility] Comment: Clinical correlation required for positi ve Urine Bilirubin results as false positive may occur with some drugs and d rug related products. If a false positive is suspected a serum total bili villaseñor should be considered if clinically indicated. Urobilinogen UA Normal Normal mg/dL [facility] pH UA 7.5 5.0 - 8.0 [facility] Blood UA Large (A) Negative mg/dL [facility] Ketones UA Negative Negative mg/dL [facility] Nitrite UA Negative Negative [facility] Leukocytes UA Negative Negative [facility] LABORATORY Appearance UA Clear Clear [facility] Spec [place] UA 1.025 1.006 - 1.030 [facility] Color UA Yellow [facility] RBC UA 4 (H) 0 - 3 /HPF [facility] WBC UA 1 0 - 3 /HPF [facility] Bacteria UA Rare (A) None /HPF [facility] Specimen Anatomical Collection Method Collection Time Receive d Time (Source) Location / / Volume Laterality Urine 01/28/2022 6:00 AM 2 6:40 EDT AM EDT Resulting Agency Comment Spec In Lab Beck Sanz MD URINE ORDERABLES Performing Organization Address City/[facility]/[place] [address] Blood culture (01/28/2022 3:45 AM EDT) [facility] gist Method Time Signature Blood Culture No growth JOSH GILMORE at 5 days. [facility] Specimen Anatomical Collection Method Collection Time Receive d Time (Source) Location / / Volume Laterality Blood 01/28/2022 3:45 AM 2 5:37 EDT AM EDT Resulting Agency Comment Spec In Lab Beck Sanz MD MICROBIOLOGY - BLOOD ORDERAB LES Performing Organization Address City/[facility] [place] [address] Scan, Peripheral Blood (01/28/2022 12:18 AM EDT) Patholo gist Method Time Signature Plat Estimate Decreased [facility] RBC Morphology Normal [facility] Specimen Anatomical Collection Method Collection Time Receive d Time (Source) Location / / Volume Laterality Blood 01/28/2022 12:18 01/28/2022 AM EDT 12:24 AM EDT Resulting Agency Comment Spec In Lab Cristina Hillman APRN HEMATOLOGY ORDERABLES Performing Organization Address City/State/ZIP [place] [address] (ABNORMAL) Blood Gas Venous ([facility]) (01/28/2022 12:18 AM EDT) Analysis Performed At Patho logist Time Signature pH Honorio 7.39 7.32 - [facility] 7.42 [facility] pCO2 Honorio 44 41 - 51 [facility] LABORATORY pO2 Honorio 34 25 - 40 [facility] LABORATORY HCO3 Honorio 25.9 mmol/L [facility] BE Honorio 1.0 mmol/L [facility] Hgb Blood Gas 12.8 (L) 13.7 - [facility] 16.5 g/dL [facility] O2HB Honorio 68.7 % [facility] COHB Honorio 0.6 % [facility] Comment: Nonsmokers: 0.5-1.5% COHB Smokers: Variable, but usually less than 10% Toxic: 20-30% COHB Lethal: Greater than 60% COHB METHB Honorio 0.3 <=1.5 % [facility] Na Whole Blood 130 (L) 135 - 145 mmol/L [facility] K Whole Blood 4.4 3.5 - 5.0 mmol/L [facility] Comment: Please note: Patients with WBC >100,000 may have falsely elevated Potassium levels. Contact the Clinical Chemistry L aboratory if there are any questions. ICa Whole Blood 1.14 (L) 1.15 - 1.33 mmol/L [facility] Comment: Note: ??Total bilirubin higher than 20 m g/dL may lead to falsely low ionized calcium. CL Whole Blood 102 98 - 107 mmol/L [facility] Gluc Whole Bld 120 65 - 199 mg/dL [facility] Comment: Diabetes: >=200 mg/dL plus symp toms Lactate WB 1.0 0.5 - 2.2 mmol/L [facility] FIO2 Honorio 21 % [facility] BGas Source Venous [facility] Specimen Anatomical Collection Method Collection Time Receive d Time (Source) Location / / Volume Laterality Blood Venous Draw / 01/28/2022 12:18 01/28/2022 Unknown AM EDT 12:25 AM EDT Resulting Agency Comment Spec In Lab Angelina Reynoso MD CHEMISTRY ORDERABLES Performing Organization Address City/State/ZIP Code Phon e Number [place] [id number] HOSPITAL LABORATORY Drive (ABNORMAL) Differential, Automated (01/28/2022 12:18 AM EDT) [facility] gist Method Time Signature Neutrophils % 56.1 % [facility] Neutr Abs (ANC) 13.41 (H) 1.70 - [facility] 6.10 [facility] x10(3)/[facility] LABORATORY Lymphocytes % 7.3 % [facility] Lymphocytes Abs 1.7 0.9 - 3.2 [facility] x10(3)[facility] LABORATORY Monocytes % 6.7 % [facility] Monocyte Abs 1.6 (H) 0.3 - 0.9 [facility] x10(3)[facility] LABORATORY Eosinophils % 1.0 % [facility] Eosinophils Abs 0.2 0.0 - 0.4 [facility] x10(3)[facility] LABORATORY Basophils % 0.1 % [facility] Basophils Abs 0.0 0.0 - 0.1 [facility] x10(3)/[facility] LABORATORY Immature Gran % 28.80 % [facility] Comment: Immature granulocytes(IG's)percentage an d absolute count will include metamyelocytes, myelocytes, and promyelo cytes. Blood smears from CBCs yielding IG's will be scanned manually for concor dance. If this scan disagrees with the automated IG or if promyelocytes are not ed, a manual differential will be performed. Gemini Gran Abs 6.87 (H) 0.00 - 0.04 x10(3)/[facility] LABORATORY Specimen Anatomical Collection Method Collection Time Receive d Time (Source) Location / / Volume Laterality Blood 01/28/2022 12:18 01/28/2022 AM EDT 12:24 AM EDT Resulting Agency Comment Spec In Lab Cristina Hillman APRN HEMATOLOGY ORDERABLES Performing Organization Address City/State/ZIP Code Phon e Number [place] [phone] HOSPITAL LABORATORY Drive (ABNORMAL) Hemogram (01/28/2022 12:18 AM EDT) Analysis Performed At Patho logist Time Signature WBC 23.9 (H) 4.0 - 9.5 [facility] x10(3)/[facility] LABORATORY RBC 3.63 (L) 4.58 - [facility] 5.54 [facility] x10(6)/[facility] LABORATORY Hemoglobin 11.9 (L) 13.7 - [facility] g/dL [facility] Hematocrit 34.7 (L) 40.5 - [facility] MANDO 48.5 % [facility] MCV 95.6 (H) 82.9 - [facility] 93.1 [facility] LABORATORY MCH 32.8 (H) 27.5 - [facility]O 32.1 pg [facility] MCHC 34.3 32.0 - [facility] 35.7 g/dL [facility] Platelets 106 (L) 145 - 357 [facility] x10(3)/[facility] LABORATORY RDWSD 43.9 36.0 - [facility] 45.0 [facility] LABORATORY RDWCV 12.8 11.4 - [facility] 13.8 % [facility] MPV 10.5 7.6 - 12.9 [facility] LABORATORY nRBC % Auto 0.0 % [facility] nRBC Abs Auto 0.000 0.000 - [facility] 0.000 [facility] x10(3)/[facility] LABORATORY Specimen Anatomical Collection Method Collection Time Receive d Time (Source) Location / / Volume Laterality Blood 01/28/2022 12:18 01/28/2022 AM EDT 12:24 AM EDT Resulting Agency Comment Spec In Lab Weeping Waterma B [facility] INDUSTRIAL PAINTER HEMATOLOGY ORDERABLES Performing Organization Address City/[facility]/ZIP Code Phon e Number [address] (ABNORMAL) Hepatic Function Panel (01/28/2022 12:18 AM EDT) P athologist Signature Total Protein 4.5 (L) 6.1 - 8.0 [facility] g/dL [facility] Albumin 2.0 (L) 3.2 - 5.2 [facility] g/dL [facility] AST 418 (H) 0 - 39 [facility] unit/L [facility] ALT 237 (H) 0 - 55 [facility]L [facility] Alk Phos 88 40 - 130 [facility]L [facility] Total 0.4 0.2 - 1.3 [facility] Bilirubin mg/dL [facility] Bili, Direct 0.3 0.0 - 0.3 [facility] mg/dL [facility] Specimen Anatomical Collection Method Collection Time Receive d Time (Source) Location / / Volume Laterality Blood 01/28/2022 12:18 01/28/2022 AM EDT 12:24 AM EDT Resulting Agency Comment Spec In Lab Gemma B Pentland INDUSTRIAL PAINTER CHEMISTRY ORDERABLES Performing Organization Address City/[facility]/ZIP [place] [address] (ABNORMAL) Basic Metabolic Panel (non-fasting) (01/28/2022 12:18 AM EDT) P athologist Signature Glucose Lvl 118 65 - 199 [facility] mg/dL [facility] Comment: Diabetes: >=200 mg/dL plus symp toms BUN 20 10 - 20 mg/dL [facility] Creatinine 2.03 (H) 0.80 - 1.50 mg/dL [facility] Sodium 136 135 - 145 mmol/L [facility] Potassium 4.6 3.5 - 5.0 mmol/L [facility] Comment: Please note: ??Patients with WBC >100,00 0 may have falsely elevated Potassium levels. ??For accurate Potassium quantif ication in these patients send serum separator tube (gold top) for subsequent determinations. ??Contact the Clinical Chemistry Laboratory if there are any qu estions. Chloride 102 98 - 107 mmol/L [facility] CO2 25 22 - 31 mmol/L [facility] Anion Gap 9 5 - 15 mmol/L [facility] Calcium 7.9 (L) 8.5 - 10.5 mg/dL [facility] Estimated GFR 44 (L) >=60 mL/min/1.73 m?? [facility] Comment: This patient's estimated [...] Organization Address City/State/[place] [address] Phosphorus (01/28/2022 12:18 AM EDT) P athologist Signature Phosphorus 2.5 2.5 - 4.5 [facility] mg/dL [facility] Specimen Anatomical Collection Method Collection Time Receive d Time (Source) Location / / Volume Laterality Blood 01/28/2022 12:18 01/28/2022 AM EDT 12:24 AM EDT Resulting Agency Comment Spec In Lab Gela Novak MD CHEMISTRY ORDERABLES Performing Organization Address City/State/ZIP Code Phon e Number [address] Magnesium (01/28/2022 12:18 AM EDT) athologist Signature Magnesium 0.81 0.69 - 1.07 [facility] mmol/L [facility] Specimen Anatomical Collection Method Collection Time Receive d Time (Source) Location / / Volume Laterality Blood 01/28/2022 12:18 01/28/2022 AM EDT 12:24 AM EDT Resulting Agency Comment Spec In Lab Gela Novak MD CHEMISTRY ORDERABLES Performing Organization Address City/State/ZIP Code Phon e Number [address] (ABNORMAL) CK (01/28/2022 12:18 AM EDT) athologist [facility] CK, Total 14,277 (H) 0 - 200 [facility] unit/L [facility] Specimen Anatomical Collection Method Collection Time Receive d Time (Source) Location / / Volume Laterality Blood 01/28/2022 12:18 01/28/2022 AM EDT 12:24 AM EDT Resulting Agency Comment Spec In Lab Cristina Hillman APRN CHEMISTRY ORDERABLES Performing Organization Address City/State/ZIP Code Phon e Number [address] POCT Glucose (01/27/2022 8:29 PM EDT) athologist [facility] POC Glucose 104 65 - 199 [facility] mg/dL [facility] Comment: Supplemental ranges: <140 mg/dL before meals <180 mg/dL all other times of the day Specimen Anatomical Collection Method Collection Time Receive d Time (Source) Location / / Volume Laterality Blood 01/27/2022 8:29 PM 8:29 EDT PM EDT Beck Sanz MD POINT OF CARE TEST ORDERABLE S Performing Organization Address City/State/[place] [address] (ABNORMAL) Blood Gas Venous ([facility]) (01/27/2022 6:06 PM EDT) Analysis Performed At Patho logist Time Signature pH Honorio 7.42 7.32 - [facility] 7.42 [facility] pCO2 Honorio 42 41 - 51 [facility] LABORATORY pO2 Honorio 35 25 - 40 [facility] LABORATORY HCO3 Honorio 26.5 mmol/L [facility] BE Honorio 2.0 mmol/L [facility] Hgb Blood Gas 11.9 (L) 13.7 - [facility] 16.5 g/dL [facility] O2HB Honorio 72.0 % [facility] COHB Honorio 0.8 % [facility] Comment: Nonsmokers: 0.5-1.5% COHB Smokers: Variable, but usually less than 10% Toxic: 20-30% COHB Lethal: Greater than 60% COHB METHB Honorio 0.2 <=1.5 % [facility] Na Whole Blood 130 (L) 135 - 145 mmol/L [facility] K Whole Blood 4.3 3.5 - 5.0 mmol/L [facility] Comment: Please note: Patients with WBC >100,000 may have falsely elevated Potassium levels. Contact the Clinical Chemistry L aboratory if there are any questions. ICa Whole Blood 1.14 (L) 1.15 - 1.33 mmol/L [facility] Comment: Note: ??Total bilirubin higher than 20 m g/dL may lead to falsely low ionized calcium. CL Whole Blood 103 98 - 107 mmol/L [facility] Gluc Whole Bld 142 65 - 199 mg/dL [facility] Comment: Diabetes: >=200 mg/dL plus [...] Organization Address City/State/ZIP [place] [address] (ABNORMAL) CK (01/27/2022 5:55 PM EDT) athologist [facility] CK, Total 15,910 (H) 0 - 200 [facility] unit/L [facility] Specimen Anatomical Collection Method Collection Time Receive d Time (Source) Location / / Volume Laterality Blood 01/27/2022 5:55 PM 2 6:05 EDT PM EDT Resulting Agency Comment Spec In Lab Cristina Hillman APRN CHEMISTRY ORDERABLES Performing Organization Address City/[facility]/ZIP [place] [address] POCT Glucose (01/27/2022 4:28 PM EDT) athologist Signature POC Glucose 99 65 - 199 [facility] mg/dL [facility] Comment: Supplemental ranges: <140 mg/dL before meals <180 mg/dL all other times of the day Specimen Anatomical Collection Method Collection Time Receive d Time (Source) Location / / Volume Laterality Blood 01/27/2022 4:28 PM 2 4:28 EDT PM EDT Beck Sanz MD POINT OF CARE TEST ORDERABLE S Performing Organization Address City/State/ZIP [place] [address] POCT Glucose (01/27/2022 12:13 PM EDT) athologist Signature POC Glucose 108 65 - 199 [facility] mg/dL [facility] Comment: Supplemental ranges: <140 mg/dL before meals <180 mg/dL all other times of the day Specimen Anatomical Collection Method Collection Time Receive d Time (Source) Location / / Volume Laterality Blood 01/27/2022 12:13 01/27/2022 PM EDT 12:13 PM EDT Beck Sanz MD POINT OF CARE TEST ORDERABLE S Performing Organization Address City/State/[place] [address] (ABNORMAL) BLOOD GAS 2 VENOUS (01/27/2022 12:11 PM EDT) Analysis Performed At Patho logist Time Signature pH Honorio 7.41 7.32 - [facility] 7.42 [facility] pCO2 Honorio 42 41 - 51 [facility] LABORATORY pO2 Honorio 34 25 - 40 [facility] LABORATORY HCO3 Honorio 25.7 mmol/L [facility] BE Honorio 1.1 mmol/L [facility] Hgb Blood Gas 13.1 (L) 13.7 - [facility] 16.5 g/dL [facility] O2HB Honorio 70.3 % [facility] COHB Honorio 1.0 % [facility] Comment: Nonsmokers: 0.5-1.5% COHB Smokers: Variable, but usually less than 10% Toxic: 20-30% COHB Lethal: Greater than 60% COHB METHB Honorio 0.2 <=1.5 % [facility] Na Whole Blood 130 (L) 135 - 145 mmol/L [facility] K Whole Blood 4.3 3.5 - 5.0 mmol/L [facility] Comment: Please note: Patients with WBC >100,000 may have falsely elevated Potassium levels. Contact the Clinical Chemistry L aboratory if there are any questions. ICa Whole Blood 1.13 (L) 1.15 - 1.33 mmol/L [facility] Comment: Note: ??Total bilirubin higher than 20 m g/dL may lead to falsely low ionized calcium. CL Whole Blood 102 98 - 107 mmol/L [facility] Gluc Whole Bld 127 65 - 199 mg/dL [facility] Comment: Diabetes: >=200 mg/dL plus symp toms Lactate WB 1.1 0.5 - 2.2 mmol/L [facility] FIO2 Honorio 21 % [facility] BGas Source Venous [facility] Specimen Anatomical Collection Method Collection Time Receive d Time (Source) Location / / Volume Laterality Blood 01/27/2022 12:11 01/27/2022 PM EDT 12:11 PM EDT Beck Sanz MD CHEMISTRY ORDERABLES Performing Organization Address City/[facility]/ZIP Code Phon e Number [address] (ABNORMAL) Creatinine (01/27/2022 12:05 PM EDT) Analysis Performed At [facility] Time Signature Creatinine 2.06 (H) 0.80 - [facility] 1.50 mg/dL [facility] Estimated GFR 44 (L) >=60 [facility] mL/min/1.7 [facility] 3 ?? [facility] Comment: This patient's estimated [...] Organization Address City/State/ZIP [place] [address] Scan, Peripheral Blood (01/27/2022 10:22 AM EDT) [email or web address] Method Time Signature Plat Estimate Decreased [facility] RBC Morphology Normal [facility] Specimen Anatomical Collection Method Collection Time Receive d Time (Source) Location / / Volume Laterality Blood 01/27/2022 10:22 01/27/2022 AM EDT 10:38 AM EDT Resulting Agency Comment Spec In Lab Cristina B Rafy INDUSTRIAL PAINTER HEMATOLOGY ORDERABLES Performing Organization Address City/State/[place] [address] (ABNORMAL) Differential, Automated (01/27/2022 10:22 AM EDT) [facility] [email or web address] Method Time Signature Neutrophils % 61.9 % [facility] Neutr Abs (ANC) 11.72 (H) 1.70 - [facility] 6.10 [facility] x10(3)/[facility] LABORATORY Lymphocytes % 7.8 % [facility] Lymphocytes Abs 1.5 0.9 - 3.2 [facility] x10(3)/[facility] LABORATORY Monocytes % 5.6 % [facility] Monocyte Abs 1.1 (H) 0.3 - 0.9 [facility] x10(3)/[facility] LABORATORY Eosinophils % 1.1 % [facility] Eosinophils Abs 0.2 0.0 - 0.4 [facility] HOSPITAL x10(3)/[facility] LABORATORY Basophils % 0.1 % [facility] LABORATORY Basophils Abs 0.0 0.0 - 0.1 [facility] x10(3)/[facility] LABORATORY Immature Gran % 23.50 % [facility] LABORATORY Comment: Immature granulocytes(IG's)percentage an d absolute count will include metamyelocytes, myelocytes, and promyelo cytes. Blood smears from CBCs yielding IG's will be scanned manually for concor dance. If this scan disagrees with the automated IG or if promyelocytes are not ed, a manual differential will be performed. Gemini Gran Abs 4.45 (H) 0.00 - 0.04 x10(3)/[facility] LABORATORY Specimen Anatomical Collection Method Collection Time Receive d Time (Source) Location / / Volume Laterality Blood 01/27/2022 10:22 01/27/2022 AM EDT 10:38 AM EDT Resulting Agency Comment Spec In Lab Cristina Tongland INDUSTRIAL PAINTER HEMATOLOGY ORDERABLES Performing Organization Address City/State/[place] [address] (ABNORMAL) Hemogram (01/27/2022 10:22 AM EDT) [facility] gist Method Time Signature WBC 18.9 (H) 4.0 - 9.5 [facility] LABORATORY RBC 3.61 (L) 4.58 - [facility] M[facility] 5.54 [facility] x10(6)/[facility] LABORATORY Hemoglobin 11.6 (L) 13.7 [facility]/dL [facility] LABORATORY Hematocrit 34.2 (L) 40.5 - [facility] 48.5 % [facility] LABORATORY MCV 94.7 (H) 82.9 - [facility] 93.1 [facility] LABORATORY MCH 32.1 27.5 - [facility] MANDO 32.1 pg [facility] LABORATORY MCHC 33.9 32.0 - [facility] 35.7 g/dL [facility] LABORATORY Platelets 100 (L) 145 - 357 [facility] x10(3)/[facility] LABORATORY RDWSD 43.3 36.0 - [facility] 45.0 [facility] LABORATORY RDWCV 12.6 11.4 - [facility] M[facility] 13.8 % [facility] LABORATORY MPV 10.6 7.6 - 12.9 [facility] LABORATORY nRBC % Auto 0.1 % [facility] LABORATORY nRBC Abs Auto 0.020 (H) 0.000 - [facility] MANDO 0.000 [facility] x10(3)/[facility] LABORATORY Specimen Anatomical Collection Method Collection Time Receive d Time (Source) Location / / Volume Laterality Blood 01/27/2022 10:22 01/27/2022 AM EDT 10:38 AM EDT Resulting Agency Comment Spec In Lab Jaquelinma B Pentland INDUSTRIAL PAINTER HEMATOLOGY ORDERABLES Performing Organization Address City/State/[place] [address] [facility] [address]ORY Drive POCT Glucose (01/27/2022 8:30 AM EDT) athologist Signature POC Glucose 103 65 - 199 [facility] mg/dL [facility] LABORATORY Comment: Supplemental ranges: <140 mg/dL before meals <180 mg/dL all other times of the day Specimen Anatomical Collection Method Collection Time Receive d Time (Source) Location / / Volume Laterality Blood 01/27/2022 8:30 AM 8:30 EDT AM EDT Beck Sanz MD POINT OF CARE TEST ORDERABLE S Performing Organization Address City/State/ZIP Code Phon e Number [address] (ABNORMAL) Blood Gas Venous ([facility]) (01/27/2022 5:36 AM EDT) athologist Signature pH Honorio 7.37 7.32 - [facility] 7.42 [facility] LABORATORY pCO2 Honorio 47 41 - 51 [facility] LABORATORY pO2 Honorio 33 25 - 40 [facility] LABORATORY HCO3 Honorio 26.4 mmol/L [facility] LABORATORY BE Honorio 1.2 mmol/L [facility] LABORATORY Hgb Blood Gas 16.1 13.7 - [facility] 16.5 g/dL [facility] LABORATORY O2HB Honorio 66.2 % [facility] LABORATORY COHB Honorio 1.5 % [facility] LABORATORY Comment: Nonsmokers: 0.5-1.5% COHB Smokers: Variable, but usually less than 10% Toxic: 20-30% COHB Lethal: Greater than 60% COHB METHB Honorio 0.3 <=1.5 % [facility] LABORATORY Na Whole Blood 133 (L) 135 - 145 mmol/L [facility] LABORATORY K Whole Blood 4.4 3.5 - 5.0 mmol/L [facility] LABORATORY Comment: Please note: Patients with WBC >100,000 may have falsely elevated Potassium levels. Contact the Clinical Chemistry L aboratory if there are any questions. ICa Whole Blood 1.14 (L) 1.15 - 1.33 mmol/L [facility] LABORATORY Comment: Note: ??Total bilirubin higher than 20 m g/dL may lead to falsely low ionized calcium. CL Whole Blood 102 98 - 107 mmol/L [facility] LABORATORY Gluc Whole Bld 106 65 - 199 mg/dL [facility] LABORATORY Comment: Diabetes: >=200 mg/dL plus [...] Organization Address City/State/ZIP [place] [address] (ABNORMAL) CK (01/27/2022 5:36 AM EDT) P athologist Signature CK, Total 21,662 (H) 0 - 200 [facility] unit/L [facility] LABORATORY Specimen Anatomical Collection Method Collection Time Receive d Time (Source) Location / / Volume Laterality Blood 01/27/2022 5:36 AM 2 5:43 EDT AM EDT Resulting Agency Comment Spec In Lab Cristina Hillman APRN CHEMISTRY ORDERABLES Performing Organization Address City/[facility]/ZIP [place] [address] (ABNORMAL) Blood Gas Venous ([facility]) (01/27/2022 1:25 AM EDT) Analysis Performed At Patho logist Time Signature pH Honorio 7.44 (H) 7.32 - [facility] 7.42 [facility] LABORATORY pCO2 Honorio 39 (L) 41 - 51 [facility] LABORATORY pO2 Honorio 36 25 - 40 [facility] LABORATORY HCO3 Honorio 25.9 mmol/L [facility] LABORATORY BE Honorio 1.6 mmol/L [facility] LABORATORY Hgb Blood Gas 11.8 (L) 13.7 - [facility] 16.5 g/dL [facility] LABORATORY O2HB Honorio 73.6 % [facility] LABORATORY COHB Honorio 0.6 % [facility] LABORATORY Comment: Nonsmokers: 0.5-1.5% COHB Smokers: Variable, but usually less than 10% Toxic: 20-30% COHB Lethal: Greater than 60% COHB METHB Honorio 0.0 <=1.5 % [facility] LABORATORY Na Whole Blood 132 (L) 135 - 145 mmol/L [facility] LABORATORY K Whole Blood 4.3 3.5 - 5.0 mmol/L [facility] LABORATORY Comment: Please note: Patients with WBC >100,000 may have falsely elevated Potassium levels. Contact the Clinical Chemistry L aboratory if there are any questions. ICa Whole Blood 1.11 (L) 1.15 - 1.33 mmol/L [facility] LABORATORY Comment: Note: ??Total bilirubin higher than 20 m g/dL may lead to falsely low ionized calcium. CL Whole Blood 104 98 - 107 mmol/L [facility] LABORATORY Gluc Whole Bld 108 65 - 199 mg/dL [facility] LABORATORY Comment: Diabetes: >=200 mg/dL plus [...] Organization Address City/State/[place] [address] (ABNORMAL) CK (01/27/2022 1:25 AM EDT) P athologist Signature CK, Total 22,236 (H) 0 - 200 [facility] unit/L [facility] LABORATORY Specimen Anatomical Collection Method Collection Time Receive d Time (Source) Location / / Volume Laterality Blood 01/27/2022 1:25 AM 2 1:30 EDT AM EDT Resulting Agency Comment Spec In Lab Gemashley B Pentland INDUSTRIAL PAINTER CHEMISTRY ORDERABLES Performing Organization Address City/[facility]/ZIP [place] [address] (ABNORMAL) Hepatic Function Panel (01/27/2022 1:25 AM EDT) P athologist Signature Total Protein 4.3 (L) 6.1 - 8.0 [facility] g/dL [facility] LABORATORY Albumin 2.1 (L) 3.2 - 5.2 [facility] g/dL [facility] LABORATORY AST 618 (H) 0 - 39 [facility] unit/L [facility] LABORATORY ALT 418 (H) 0 - 55 [facility] unit/L [facility] LABORATORY Alk Phos 82 40 - 130 [facility] unit/L [facility] LABORATORY Total 0.9 0.2 - 1.3 [facility] Bilirubin mg/dL [facility] LABORATORY Bili, Direct 0.8 (H) 0.0 - 0.3 [facility] mg/dL [facility] LABORATORY Specimen Anatomical Collection Method Collection Time Receive d Time (Source) Location / / Volume Laterality Blood 01/27/2022 1:25 AM 2 1:30 EDT AM EDT Resulting Agency Comment Spec In Lab Gemma B Pentland INDUSTRIAL PAINTER CHEMISTRY ORDERABLES Performing Organization Address City/[facility]/[place] [address] (ABNORMAL) Basic Metabolic Panel (non-fasting) (01/27/2022 1:25 AM EDT) P athologist Signature Glucose Lvl 112 65 - 199 [facility] mg/dL [facility] LABORATORY Comment: Diabetes: >=200 mg/dL plus symp toms BUN 21 (H) 10 - 20 mg/dL [facility] LABORATORY Creatinine 2.12 (H) 0.80 - 1.50 mg/dL [facility] LABORATORY Sodium 135 135 - 145 mmol/L [facility] LABORATORY Potassium 4.4 3.5 - 5.0 mmol/L [facility] LABORATORY Comment: Please note: ??Patients with WBC >100,00 0 may have falsely elevated Potassium levels. ??For accurate Potassium quantif ication in these patients send serum separator tube (gold top) for subsequent determinations. ??Contact the Clinical Chemistry Laboratory if there are any qu estions. Chloride 104 98 - 107 mmol/L [facility] LABORATORY CO2 25 22 - 31 mmol/L [facility] LABORATORY Anion Gap 6 5 - 15 mmol/L [facility] LABORATORY Calcium 7.7 (L) 8.5 - 10.5 mg/dL [facility] LABORATORY Estimated GFR 42 (L) >=60 mL/min/1.73 m?? [facility] LABORATORY Comment: This patient's estimated [...] Organization Address City/State/[place] [address] (ABNORMAL) Phosphorus (01/27/2022 1:25 AM EDT) P athologist Signature Phosphorus 1.6 (L) 2.5 - 4.5 [facility] mg/dL [facility] LABORATORY Specimen Anatomical Collection Method Collection Time Receive d Time (Source) Location / / Volume Laterality Blood 01/27/2022 1:25 AM 2 1:30 EDT AM EDT Resulting Agency Comment Spec In Lab Gela Novak MD CHEMISTRY ORDERABLES Performing Organization Address City/State/ZIP Code Phon e Number [address] Magnesium (01/27/2022 1:25 AM EDT) P athologist Signature Magnesium 0.72 0.69 - 1.07 [facility] mmol/L [facility] LABORATORY Specimen Anatomical Collection Method Collection Time Receive d Time (Source) Location / / Volume Laterality Blood 01/27/2022 1:25 AM 2 1:30 EDT AM EDT Resulting Agency Comment Spec In Lab Gela Novak MD CHEMISTRY ORDERABLES Performing Organization Address City/[facility]/ZIP [place] [address] POCT Glucose (01/26/2022 8:59 PM EDT) P athologist Signature POC Glucose 83 65 - 199 [facility] mg/dL [facility] LABORATORY Comment: Supplemental ranges: <140 mg/dL before meals <180 mg/dL all other times of the day Specimen Anatomical Collection Method Collection Time Receive d Time (Source) Location / / Volume Laterality Blood 01/26/2022 8:59 PM 2 8:59 EDT PM EDT Beck Sanz MD POINT OF CARE TEST ORDERABLE S Performing Organization Address City/State/ZIP [place] [address] (ABNORMAL) Blood Gas Venous ([facility]) (01/26/2022 6:19 PM EDT) Analysis Performed At Patho logist Time Signature pH Honorio 7.34 7.32 - [facility] 7.42 [facility] LABORATORY pCO2 Honorio 48 41 - 51 [facility] LABORATORY pO2 Honorio 32 25 - 40 [facility] LABORATORY HCO3 Honorio 25.4 mmol/L [facility] LABORATORY BE Honorio -0.3 mmol/L [facility] LABORATORY Hgb Blood Gas 12.0 (L) 13.7 - [facility] 16.5 g/dL [facility] LABORATORY O2HB Honorio 59.2 % [facility] LABORATORY COHB Honorio 1.1 % [facility] LABORATORY Comment: Nonsmokers: 0.5-1.5% COHB Smokers: Variable, but usually less than 10% Toxic: 20-30% COHB Lethal: Greater than 60% COHB METHB Honoroi 0.3 <=1.5 % [facility] LABORATORY Na Whole Blood 131 (L) 135 - 145 mmol/L [facility] LABORATORY K Whole Blood 4.1 3.5 - 5.0 mmol/L [facility] LABORATORY Comment: Please note: Patients with WBC >100,000 may have falsely elevated Potassium levels. Contact the Clinical Chemistry L aboratory if there are any questions. ICa Whole Blood 1.12 (L) 1.15 - 1.33 mmol/L [facility] LABORATORY Comment: Note: ??Total bilirubin higher than 20 m g/dL may lead to falsely low ionized calcium. CL Whole Blood 104 98 - 107 mmol/L [facility] LABORATORY Gluc Whole Bld 127 65 - 199 mg/dL [facility] LABORATORY Comment: Diabetes: >=200 mg/dL plus [...] Organization Address City/State/[place] [address] (ABNORMAL) CK (01/26/2022 6:19 PM EDT) P athologist Signature CK, Total 21,834 (H) 0 - 200 [facility] unit/L [facility] LABORATORY Specimen Anatomical Collection Method Collection Time Receive d Time (Source) Location / / Volume Laterality Blood 01/26/2022 6:19 PM 2 6:31 EDT PM EDT Resulting Agency Comment Spec In Lab Cristina Hillman APRN CHEMISTRY ORDERABLES Performing Organization Address City/State/ZIP Code Phon e Number [address] POCT Glucose (01/26/2022 6:03 PM EDT) athologist Signature POC Glucose 108 65 - 199 [facility] mg/dL [facility] LABORATORY Comment: Supplemental ranges: <140 mg/dL before meals <180 mg/dL all other times of the day Specimen Anatomical Collection Method Collection Time Receive d Time (Source) Location / / Volume Laterality Blood 01/26/2022 6:03 PM 2 6:03 EDT PM EDT Beck Sanz MD POINT OF CARE TEST ORDERABLE S Performing Organization Address City/State/ZIP Code Phon e Number [address] POCT Glucose (01/26/2022 4:31 PM EDT) athologist Signature POC Glucose 112 65 - 199 [facility] mg/dL [facility] LABORATORY Comment: Supplemental ranges: <140 mg/dL before meals <180 mg/dL all other times of the day Specimen Anatomical Collection Method Collection Time Receive d Time (Source) Location / / Volume Laterality Blood 01/26/2022 4:31 PM 2 4:31 EDT PM EDT Beck Sanz MD POINT OF CARE TEST ORDERABLE S Performing Organization Address City/State/ZIP Code Phon e Number [address] POCT Glucose (01/26/2022 2:00 PM EDT) athologist Signature POC Glucose 89 65 - 199 [facility] mg/dL [facility] LABORATORY Comment: Supplemental ranges: <140 mg/dL before meals <180 mg/dL all other times of the day Specimen Anatomical Collection Method Collection Time Receive d Time (Source) Location / / Volume Laterality Blood 01/26/2022 2:00 PM 2:00 EDT PM EDT Beck Sanz MD POINT OF CARE TEST ORDERABLE S Performing Organization Address City/State/ZIP Code Phon e Number [place] [id number] HOSPITAL LABORATORY Drive (ABNORMAL) BLOOD GAS 2 VENOUS (01/26/2022 12:23 PM EDT) Analysis Performed At Patho logist Time Signature pH Honorio 7.42 7.32 - [facility] 7.42 [facility] LABORATORY pCO2 Honorio 40 (L) 41 - 51 [facility] LABORATORY pO2 Honorio 33 25 - 40 [facility] LABORATORY HCO3 Honorio 25.4 mmol/L [facility] LABORATORY BE Honorio 1.0 mmol/L [facility] LABORATORY Hgb Blood Gas 12.1 (L) 13.7 - [facility] 16.5 g/dL [facility] LABORATORY O2HB Honorio 65.4 % [facility] LABORATORY COHB Honorio 0.7 % [facility] LABORATORY Comment: Nonsmokers: 0.5-1.5% COHB Smokers: Variable, but usually less than 10% Toxic: 20-30% COHB Lethal: Greater than 60% COHB METHB Honorio 0.1 <=1.5 % [facility] LABORATORY Na Whole Blood 130 (L) 135 - 145 mmol/L [facility] LABORATORY K Whole Blood 3.8 3.5 - 5.0 mmol/L [facility] LABORATORY Comment: Please note: Patients with WBC >100,000 may have falsely elevated Potassium levels. Contact the Clinical Chemistry L aboratory if there are any questions. ICa Whole Blood 1.16 1.15 - 1.33 mmol/L [facility] LABORATORY Comment: Note: ??Total bilirubin higher than 20 m g/dL may lead to falsely low ionized calcium. CL Whole Blood 102 98 - 107 mmol/L [facility] LABORATORY Gluc Whole Bld 115 65 - 199 mg/dL [facility] LABORATORY Comment: Diabetes: >=200 mg/dL plus symp toms Lactate WB 0.9 0.5 - 2.2 mmol/L [facility] LABORATORY FIO2 Honorio 21 % [facility] LABORATORY BGas Source Central Venous [facility] LABORATORY Specimen Anatomical Collection Method Collection Time Receive d Time (Source) Location / / Volume Laterality Blood 01/26/2022 12:23 01/26/2022 PM EDT 12:23 PM EDT Beck Sanz MD CHEMISTRY ORDERABLES Performing Organization Address City/State/ZIP Code Phon e Number [address] (ABNORMAL) CK (01/26/2022 12:22 PM EDT) athologist Signature CK, Total 25,802 (H) 0 - 200 [facility] unit/L [facility] LABORATORY Specimen Anatomical Collection Method Collection Time Receive d Time (Source) Location / / Volume Laterality Blood 01/26/2022 12:22 01/26/2022 PM EDT 12:29 PM EDT Resulting Agency Comment Spec In Lab Cristina Hillman APRN CHEMISTRY ORDERABLES Performing Organization Address City/State/ZIP Code Phon e Number [address] POCT Glucose (01/26/2022 12:05 PM EDT) athologist Signature POC Glucose 79 65 - 199 [facility]ORY Comment: Supplemental ranges: <140 mg/dL before meals <180 mg/dL all other times of the day Specimen Anatomical Collection Method Collection Time Receive d Time (Source) Location / / Volume Laterality Blood 01/26/2022 12:05 01/26/2022 PM EDT 12:05 PM EDT Beck Sanz MD POINT OF CARE TEST ORDERABLE S Performing Organization Address City/State/ZIP Code Phon e Number [address] POCT Glucose (01/26/2022 11:08 AM EDT) athologist Signature POC Glucose 82 65 - 199 [facility] mg/dL [facility]ORY Comment: Supplemental ranges: <140 mg/dL before meals <180 mg/dL all other times of the day Specimen Anatomical Collection Method Collection Time Receive d Time (Source) Location / / Volume Laterality Blood 01/26/2022 11:08 01/26/2022 AM EDT 11:08 AM EDT Beck Sanz MD POINT OF CARE TEST ORDERABLE S Performing Organization Address City/State/ZIP [place] [address] (ABNORMAL) POCT Glucose (01/26/2022 10:15 AM EDT) athologist Signature POC Glucose 59 (L) 65 - 199 [facility] mg/dL [facility] LABOR[facility]ORY Comment: Supplemental ranges: <140 mg/dL before meals <180 mg/dL all other times of the day Specimen Anatomical Collection Method Collection Time Receive d Time (Source) Location / / Volume Laterality Blood 01/26/2022 10:15 01/26/2022 AM EDT 10:15 AM EDT Beck Sanz MD POINT OF CARE TEST ORDERABLE S Performing Organization Address City/State/ZIP [place] [address] POCT Glucose (01/26/2022 8:58 AM EDT) athologist Signature POC Glucose 75 65 - 199 [facility] mg/dL [facility]ORY Comment: Supplemental ranges: <140 mg/dL before meals <180 mg/dL all other times of the day Specimen Anatomical Collection Method Collection Time Receive d Time (Source) Location / / Volume Laterality Blood 01/26/2022 8:58 AM 8:58 EDT AM EDT Beck Sanz MD POINT OF CARE TEST ORDERABLE S Performing Organization Address City/State/ZIP [place] [address] (ABNORMAL) POCT Glucose (01/26/2022 8:20 AM EDT) athologist Signature POC Glucose 49 65 - 199 [facility] (Critical) mg/dL [facility] Comment: Supplemental ranges: <140 mg/dL before meals <180 mg/dL all other times of the day Specimen Anatomical Collection Method Collection Time Receive d Time (Source) Location / / Volume Laterality Blood 01/26/2022 8:20 AM 2 8:20 EDT AM EDT Beck Sanz MD POINT OF CARE TEST ORDERABLE S Performing Organization Address City/State/ZIP [place] [address] (ABNORMAL) CK (01/26/2022 6:15 AM EDT) P athologist Signature CK, Total 27,357 (H) 0 - 200 [facility] unit/L [facility] LABORATORY Specimen Anatomical Collection Method Collection Time Receive d Time (Source) Location / / Volume Laterality Blood 01/26/2022 6:15 AM 2 6:21 EDT AM EDT Resulting Agency Comment Spec In Lab Cristina Hillman APRN CHEMISTRY ORDERABLES Performing Organization Address City/State/ZIP [place] [address] (ABNORMAL) BLOOD GAS 2 VENOUS (01/26/2022 5:59 AM EDT) Analysis Performed At Patho logist Time Signature pH Honorio 7.40 7.32 - [facility] 7.42 [facility] LABORATORY pCO2 Honorio 42 41 - 51 [facility] LABORATORY pO2 Honorio 32 25 - 40 [facility] LABORATORY HCO3 Honorio 25.9 mmol/L [facility] LABORATORY BE Honorio 1.1 mmol/L [facility] LABORATORY Hgb Blood Gas 12.5 (L) 13.7 - [facility] 16.5 g/dL [facility] O2HB Honorio 62.3 % [facility] LABOR[facility]ORY COHB Honorio 0.6 % [facility] LABORATORY Comment: Nonsmokers: 0.5-1.5% COHB Smokers: Variable, but usually less than 10% Toxic: 20-30% COHB Lethal: Greater than 60% COHB METHB Honorio 0.2 <=1.5 % [facility] Na Whole Blood 132 (L) 135 - 145 mmol/L [facility] K Whole Blood 4.0 3.5 - 5.0 mmol/L [facility] LABORATORY Comment: Please note: Patients with WBC >100,000 may have falsely elevated Potassium levels. Contact the Clinical Chemistry L aboratory if there are any questions. ICa Whole Blood 1.18 1.15 - 1.33 mmol/L [facility] LABOR[facility] Comment: Note: ??Total bilirubin higher than 20 m g/dL may lead to falsely low ionized calcium. CL Whole Blood 103 98 - 107 mmol/L [facility] LABOR[facility]ORY Gluc Whole Bld 95 65 - 199 mg/dL [facility] Comment: Diabetes: >=200 mg/dL plus symp toms Lactate WB 1.0 0.5 - 2.2 mmol/L [facility] FIO2 Honorio 21 % [facility] BGas Source Venous [facility] LAB[facility] Specimen Anatomical Collection Method Collection Time Receive d Time (Source) Location / / Volume Laterality Blood 01/26/2022 5:59 AM 2 5:59 EDT AM EDT Beck Sanz MD CHEMISTRY ORDERABLES Performing Organization Address City/State/ZIP [place] [address] POCT Glucose (01/26/2022 5:09 AM EDT) P athologist Signature POC Glucose 103 65 - 199 [facility] mg/dL [facility] Comment: Supplemental ranges: <140 mg/dL before meals <180 mg/dL all other times of the day Specimen Anatomical Collection Method Collection Time Receive d Time (Source) Location / / Volume Laterality Blood 01/26/2022 5:09 AM 2 5:09 EDT AM EDT Beck Sanz MD POINT OF CARE TEST ORDERABLE S Performing Organization Address City/State/ZIP [place] [address] (ABNORMAL) POCT Glucose (01/26/2022 4:21 AM EDT) athologist Signature POC Glucose 61 (L) 65 - 199 [facility] mg/dL [facility] Comment: Supplemental ranges: <140 mg/dL before meals <180 mg/dL all other times of the day Specimen Anatomical Collection Method Collection Time Receive d Time (Source) Location / / Volume Laterality Blood 01/26/2022 4:21 AM 2 4:21 EDT AM EDT Beck Sanz MD POINT OF CARE TEST ORDERABLE S Performing Organization Address City/State/[place] [address] (ABNORMAL) BLOOD GAS 2 VENOUS (01/26/2022 12:26 AM EDT) athologist Signature pH Honorio 7.38 7.32 - [facility] 7.42 [facility] pCO2 Honorio 47 41 - 51 [facility] LABORATORY pO2 Honorio 32 25 - 40 [facility] LABORATORY HCO3 Honorio 27.4 mmol/L [facility]OR[facility] BE Honorio 2.3 mmol/L [facility]ORY Hgb Blood Gas 13.7 13.7 - [facility] 16.5 g/dL [facility] O2HB Honorio 60.6 % [facility]ORY COHB Honorio 0.8 % [facility] Comment: Nonsmokers: 0.5-1.5% COHB Smokers: Variable, but usually less than 10% Toxic: 20-30% COHB Lethal: Greater than 60% COHB METHB Honorio 0.0 <=1.5 % [facility] Na Whole Blood 133 (L) 135 - 145 mmol/L [facility] K Whole Blood 4.3 3.5 - 5.0 mmol/L [facility] Comment: Please note: Patients with WBC >100,000 may have falsely elevated Potassium levels. Contact the Clinical Chemistry L aboratory if there are any questions. ICa Whole Blood 1.17 1.15 - 1.33 mmol/L [facility] Comment: Note: ??Total bilirubin higher than 20 m g/dL may lead to falsely low ionized calcium. CL Whole Blood 103 98 - 107 mmol/L [facility] Gluc Whole Bld 101 65 - 199 mg/dL [facility] Comment: Diabetes: >=200 mg/dL plus symp toms Lactate WB 1.3 0.5 - 2.2 mmol/L [facility] LABOR[facility] FIO2 Honorio 21 % [facility] BGas Source Venous [facility] Specimen Anatomical Collection Method Collection Time Receive d Time (Source) Location / / Volume Laterality Blood 01/26/2022 12:26 01/26/2022 AM EDT 12:26 AM EDT Beck Sanz MD CHEMISTRY ORDERABLES Performing Organization Address City/[facility]/ZIP [place] [address] Scan, Peripheral Blood (01/26/2022 12:20 AM EDT) [email or web address] Method Time Signature Plat Estimate Decreased [facility]OR[facility]ORY RBC Morphology Abnormal [facility] Polychromasia Present >5/HPF [facility] Pappenheimer Bdy Present >1/HPF [facility] Specimen Anatomical Collection Method Collection Time Receive d Time (Source) Location / / Volume Laterality Blood 01/26/2022 12:20 01/26/2022 AM EDT 12:29 AM EDT Resulting Agency Comment Spec In Lab Cristina Hillman APRN HEMATOLOGY ORDERABLES Performing Organization Address City/[facility]/ZIP [place] [address] (ABNORMAL) Differential, Automated (01/26/2022 12:20 AM EDT) [email or web address] Method Time Signature Neutrophils % 69.3 % [facility] LABOR[facility]ORY Neutr Abs (ANC) 8.94 (H) 1.70 - [facility] 6.10 [facility] x10(3)/[facility] L LABORATORY Lymphocytes % 13.7 % [facility] LABORATORY Lymphocytes Abs 1.8 0.9 - 3.2 [facility] x10(3)/[facility] LABORATORY Monocytes % 5.7 % [facility] LABORATORY Monocyte Abs 0.7 0.3 - 0.9 [facility] x10(3)/[facility] LABORATORY Eosinophils % 2.0 % [facility] LABORATORY Eosinophils Abs 0.3 0.0 - 0.4 [facility] x10(3)/[facility] LABORATORY Basophils % 0.1 % [facility] LABORATORY Basophils Abs 0.0 0.0 - 0.1 [facility] x10(3)/[facility] LABORATORY Immature Gran % 9.20 % [facility]ORY Comment: Immature granulocytes(IG's)percentage an d absolute count will include metamyelocytes, myelocytes, and promyelo cytes. Blood smears from CBCs yielding IG's will be scanned manually for concor dance. If this scan disagrees with the automated IG or if promyelocytes are not ed, a manual differential will be performed. Gemini Gran Abs 1.19 (H) 0.00 - 0.04 x10(3)/[facility] LABORATORY Specimen Anatomical Collection Method Collection Time Receive d Time (Source) Location / / Volume Laterality Blood 01/26/2022 12:20 01/26/2022 AM EDT 12:29 AM EDT Resulting Agency Comment Spec In Lab Jaquelinar Sal Hillman APRN HEMATOLOGY ORDERABLES Performing Organization Address City/State/[place] [address] (ABNORMAL) Hemogram (01/26/2022 12:20 AM EDT) [facility] gist Method Time Signature WBC 12.9 (H) 4.0 - 9.5 [facility] x10(3)/[facility] LABORATORY RBC 3.53 (L) 4.58 - [facility] 5.54 [facility] x10(6)/[facility] LABORATORY Hemoglobin 11.5 (L) 13.7 - [facility] 16.5 g/dL [facility] Hematocrit 33.2 (L) 40.5 - [facility] 48.5 % [facility] MCV 94.1 (H) 82.9 - [facility] 93.1 [facility] LABORATORY MCH 32.6 (H) 27.5 - [facility] 32.1 pg [facility] MCHC 34.6 32.0 - [facility] 35.7 g/dL [facility] Platelets 115 (L) 145 - 357 [facility] x10(3)/[facility] LABORATORY RDWSD 43.1 36.0 - [place] [place] 45.0 [facility] LABORATORY RDWCV 12.4 11.4 - [facility] 13.8 % [facility] MPV 10.6 7.6 - 12.9 [facility] nRBC % Auto 0.2 % [facility] LABORATORY nRBC Abs Auto 0.020 (H) 0.000 - [facility] [place] 0.000 [facility] x10(3)/[facility] LABORATORY Specimen Anatomical Collection Method Collection Time Receive d Time (Source) Location / / Volume Laterality Blood 01/26/2022 12:20 01/26/2022 AM EDT 12:29 AM EDT Resulting Agency Comment Spec In Lab Crisitna Hillman INDUSTRIAL PAINTER HEMATOLOGY ORDERABLES Performing Organization Address City/State/[place] [address] (ABNORMAL) Hepatic Function Panel (01/26/2022 12:20 AM EDT) P athologist Signature Total Protein 4.5 (L) 6.1 - 8.0 [facility] g/dL [facility] Albumin 2.3 (L) 3.2 - 5.2 [facility] g/dL [facility] AST 710 (H) 0 - 39 [facility] unit/L [facility] ALT 591 (H) 0 - 55 [facility] unit/L [facility] Alk Phos 56 40 - 130 [facility] unit/L [facility] Total 0.4 0.2 - 1.3 [facility] Bilirubin mg/dL [facility] Bili, Direct 0.2 0.0 - 0.3 [facility] mg/dL [facility] Specimen Anatomical Collection Method Collection Time Receive d Time (Source) Location / / Volume Laterality Blood 01/26/2022 12:20 01/26/2022 AM EDT 12:29 AM EDT Resulting Agency Comment Spec In Lab Cristina Huang Rafy AVENDAÑO CHEMISTRY ORDERABLES Performing Organization Address City/State/[place] [address] (ABNORMAL) Basic Metabolic Panel (non-fasting) (01/26/2022 12:20 AM EDT) athologist Signature Glucose Lvl 104 65 - 199 [facility] mg/dL [facility] Comment: Diabetes: >=200 mg/dL plus symp toms BUN 26 (H) 10 - 20 mg/dL [facility] LABORATORY Creatinine 1.89 (H) 0.80 - 1.50 mg/dL [facility] LABORATORY Sodium 137 135 - 145 mmol/L [facility] Potassium 4.6 3.5 - 5.0 mmol/L [facility] Comment: Please note: ??Patients with WBC >100,00 0 may have falsely elevated Potassium levels. ??For accurate Potassium quantif ication in these patients send serum separator tube (gold top) for subsequent determinations. ??Contact the Clinical Chemistry Laboratory if there are any qu estions. Chloride 103 98 - 107 mmol/L [facility] LABORATORY CO2 27 22 - 31 mmol/L [facility] Anion Gap 7 5 - 15 mmol/L [facility]ORY Calcium 8.3 (L) 8.5 - 10.5 mg/dL [facility] LABOR[facility] Estimated GFR 48 (L) >=60 mL/min/1.73 m?? [facility] Comment: This patient's estimated [...] DO CHEMISTRY ORDERABLES Performing Organization Address City/[facility]/ZIP Code Phon e Number [address] Phosphorus (01/26/2022 12:20 AM EDT) P athologist Signature Phosphorus 3.0 2.5 - 4.5 [facility] mg/dL [facility] Specimen Anatomical Collection Method Collection Time Receive d Time (Source) Location / / Volume Laterality Blood 01/26/2022 12:20 01/26/2022 AM EDT 12:29 AM EDT Resulting Agency Comment Spec In Lab Gela Novak MD CHEMISTRY ORDERABLES Performing Organization Address City/[facility]/ZIP Code Phon e Number [address] Magnesium (01/26/2022 12:20 AM EDT) P athologist Signature Magnesium 0.85 0.69 - 1.07 [facility] mmol/L [facility] Specimen Anatomical Collection Method Collection Time Receive d Time (Source) Location / / Volume Laterality Blood 01/26/2022 12:20 01/26/2022 AM EDT 12:29 AM EDT Resulting Agency Comment Spec In Lab Gela Novak MD CHEMISTRY ORDERABLES Performing Organization Address City/[facility]/ZIP Code Phon e Number [address] Triglyceride (01/26/2022 12:20 AM EDT) P athologist Signature Triglycerides 359 mg/dL [facility] LABOR[facility]ORY Comment: Average Risk/Lower Risk: <150 mg/dL Borderline High Risk: 150-199 mg/dL High Risk: 200-499 mg/dL Very High Risk: >xf=230 mg/dL Specimen Anatomical Collection Method Collection Time Receive d Time (Source) Location / / Volume Laterality Blood 01/26/2022 12:20 01/26/2022 AM EDT 12:29 AM EDT Resulting Agency Comment Spec In Lab Beck Sanz MD CHEMISTRY ORDERABLES Performing Organization Address City/[facility]/ZIP Code Phon e Number [address] POCT Glucose (01/26/2022 12:01 AM EDT) athologist Signature POC Glucose 94 65 - 199 [facility] Comment: Supplemental ranges: <140 mg/dL before meals <180 mg/dL all other times of the day Specimen Anatomical Collection Method Collection Time Receive d Time (Source) Location / / Volume Laterality Blood 01/26/2022 12:01 01/26/2022 AM EDT 12:01 AM EDT Beck Sanz MD POINT OF CARE TEST ORDERABLE S Performing Organization Address City/State/ZIP Code Phon e Number [address] POCT Glucose (01/25/2022 8:08 PM EDT) athologist Signature POC Glucose 101 65 - 199 [facility] Comment: Supplemental ranges: <140 mg/dL before meals <180 mg/dL all other times of the day Specimen Anatomical Collection Method Collection Time Receive d Time (Source) Location / / Volume Laterality Blood 01/25/2022 8:08 PM 8:08 EDT PM EDT Beck Sanz MD POINT OF CARE TEST ORDERABLE S Performing Organization Address City/State/ZIP [place] [address] (ABNORMAL) BLOOD GAS 2 VENOUS (01/25/2022 6:07 PM EDT) athologist Signature pH Honorio 7.37 7.32 - [facility] 7.42 [facility] pCO2 Honorio 45 41 - 51 [facility] LABORATORY pO2 Honorio 31 25 - 40 [facility] LABORATORY HCO3 Honorio 25.5 mmol/L [facility] LABORATORY BE Honorio 0.2 mmol/L [facility] LABORATORY Hgb Blood Gas 14.1 13.7 - [facility] 16.5 g/dL [facility] O2HB Honorio 59.1 % [facility] LABORATORY COHB Honorio 1.3 % [facility] Comment: Nonsmokers: 0.5-1.5% COHB Smokers: Variable, but usually less than 10% Toxic: 20-30% COHB Lethal: Greater than 60% COHB METHB Honroio 0.0 <=1.5 % [facility] Na Whole Blood 132 (L) 135 - 145 mmol/L [facility] K Whole Blood 4.4 3.5 - 5.0 mmol/L [facility] Comment: Please note: Patients with WBC >100,000 may have falsely elevated Potassium levels. Contact the Clinical Chemistry L aboratory if there are any questions. ICa Whole Blood 1.20 1.15 - 1.33 mmol/L [facility] Comment: Note: ??Total bilirubin higher than 20 m g/dL may lead to falsely low ionized calcium. CL Whole Blood 102 98 - 107 mmol/L [facility] Gluc Whole Bld 119 65 - 199 mg/dL [facility] Comment: Diabetes: >=200 mg/dL plus symp toms Lactate WB 1.0 0.5 - 2.2 mmol/L [facility] FIO2 Honorio 21 % [facility] BGas Source Central Venous [facility] Specimen Anatomical Collection Method Collection Time Receive d Time (Source) Location / / Volume Laterality Blood 01/25/2022 6:07 PM 6:07 EDT PM EDT Beck Sanz MD CHEMISTRY ORDERABLES Performing Organization Address City/State/[place] [address] (ABNORMAL) CK (01/25/2022 6:00 PM EDT) athologist Signature CK, Total 32,675 (H) 0 - 200 [facility] unit/L [facility] Specimen Anatomical Collection Method Collection Time Receive d Time (Source) Location / / Volume Laterality Blood 01/25/2022 6:00 PM 2 6:12 EDT PM EDT Resulting Agency Comment Spec In Lab Cristina Hillman APRN CHEMISTRY ORDERABLES Performing Organization Address City/State/ZIP [place] [address] POCT Glucose (01/25/2022 4:09 PM EDT) athologist Signature POC Glucose 103 65 - 199 [facility] mg/dL [facility] Comment: Supplemental ranges: <140 mg/dL before meals <180 mg/dL all other times of the day Specimen Anatomical Collection Method Collection Time Receive d Time (Source) Location / / Volume Laterality Blood 01/25/2022 4:09 PM 2 4:09 EDT PM EDT Beck Sanz MD POINT OF CARE TEST ORDERABLE S Performing Organization Address City/State/ZIP [place] [address] (ABNORMAL) BLOOD GAS 2 VENOUS (01/25/2022 11:59 AM EDT) Analysis Performed At Patho logist Time Signature pH Honorio 7.40 7.32 - [facility] 7.42 [facility] pCO2 Honorio 45 41 - 51 [facility] LABORATORY pO2 Honorio 34 25 - 40 [facility] LABORATORY HCO3 Honorio 27.0 mmol/L [facility] LABORATORY BE Honorio 2.2 mmol/L [facility] LABORATORY Hgb Blood Gas 12.2 (L) 13.7 - [facility] 16.5 g/dL [facility] O2HB Honorio 64.3 % [facility] LABORATORY COHB Honorio 0.2 % [facility] LAB[facility]ORY Comment: Nonsmokers: 0.5-1.5% COHB Smokers: Variable, but usually less than 10% Toxic: 20-30% COHB Lethal: Greater than 60% COHB METHB Honorio 0.3 <=1.5 % [facility] Na Whole Blood 132 (L) 135 - 145 mmol/L [facility] K Whole Blood 4.6 3.5 - 5.0 mmol/L [facility]OR[facility]ORY Comment: Please note: Patients with WBC >100,000 may have falsely elevated Potassium levels. Contact the Clinical Chemistry L aboratory if there are any questions. ICa Whole Blood 1.22 1.15 - 1.33 mmol/L [facility]OR[facility] Comment: Note: ??Total bilirubin higher than 20 m g/dL may lead to falsely low ionized calcium. CL Whole Blood 103 98 - 107 mmol/L [facility] LABORATORY Gluc Whole Bld 115 65 - 199 mg/dL [facility] Comment: Diabetes: >=200 mg/dL plus symp toms Lactate WB 1.3 0.5 - 2.2 mmol/L [facility] FIO2 Honorio 21 % [facility] BGas Source Central Venous [facility] Specimen Anatomical Collection Method Collection Time Receive d Time (Source) Location / / Volume Laterality Blood 01/25/2022 11:59 01/25/2022 AM EDT 11:59 AM EDT Beck Sanz MD CHEMISTRY ORDERABLES Performing Organization Address City/[facility]/[place] [address] POCT Glucose (01/25/2022 11:56 AM EDT) P athologist Signature POC Glucose 88 65 - 199 [facility] mg/dL [facility] Comment: Supplemental ranges: <140 mg/dL before meals <180 mg/dL all other times of the day Specimen Anatomical Collection Method Collection Time Receive d Time (Source) Location / / Volume Laterality Blood 01/25/2022 11:56 01/25/2022 AM EDT 11:56 AM EDT Beck Sanz MD POINT OF CARE TEST ORDERABLE S Performing Organization Address City/[facility]/[place] [address] Phosphorus (01/25/2022 11:55 AM EDT) P athologist Signature Phosphorus 2.7 2.5 - 4.5 [facility] mg/dL [facility] Specimen Anatomical Collection Method Collection Time Receive d Time (Source) Location / / Volume Laterality Blood 01/25/2022 11:55 01/25/2022 AM EDT 12:05 PM EDT Resulting Agency Comment Spec In Lab Angelina Reynoso MD CHEMISTRY ORDERABLES Performing Organization Address City/State/ZIP Code Phon e Number [address] Magnesium (01/25/2022 11:55 AM EDT) P athologist Signature Magnesium 0.80 0.69 - 1.07 [facility] mmol/L [facility] Specimen Anatomical Collection Method Collection Time Receive d Time (Source) Location / / Volume Laterality Blood 01/25/2022 11:55 01/25/2022 AM EDT 12:05 PM EDT Resulting Agency Comment Spec In Lab Angelina Reynoso MD CHEMISTRY ORDERABLES Performing Organization Address City/State/ZIP Code Phon e Number [address] (ABNORMAL) Creatinine (01/25/2022 11:55 AM EDT) Analysis Performed At Patho logist Time Signature Creatinine 2.06 (H) 0.80 - [facility] [place] 1.50 mg/dL [facility] Estimated GFR 44 (L) >=60 [facility] [place] mL/min/1.7 [facility] 3 [facility] LABORATORY Comment: This patient's estimated GFR was [...] MD CHEMISTRY ORDERABLES Performing Organization Address City/[facility]/ZIP [place] [address] (ABNORMAL) BUN (01/25/2022 11:55 AM EDT) P athologist Signature BUN 28 (H) 10 - 20 [facility] mg/dL [facility] Specimen Anatomical Collection Method Collection Time Receive d Time (Source) Location / / Volume Laterality Blood 01/25/2022 11:55 01/25/2022 AM EDT 12:05 PM EDT Resulting Agency Comment Spec In Lab Angelina Reynoso MD CHEMISTRY ORDERABLES Performing Organization Address City/[facility] [place] [address] Electrolytes panel (01/25/2022 11:55 AM EDT) P athologist Signature Sodium 137 135 - 145 [facility] mmol/L [facility] Potassium 4.7 3.5 - 5.0 [facility] mmol/L [facility] Comment: Please note: ??Patients with WBC >100,00 0 may have falsely elevated Potassium levels. ??For accurate Potassium quantif ication in these patients send serum separator tube (gold top) for subsequent determinations. ??Contact the Clinical Chemistry Laboratory if there are any qu estions. Chloride 104 98 - 107 mmol/L [facility] LABORATORY CO2 25 22 - 31 mmol/L [facility] LABOR[facility]ORY Anion Gap 8 5 - 15 mmol/L [facility] LABORATORY Specimen Anatomical Collection Method Collection Time Receive d Time (Source) Location / / Volume Laterality Blood 01/25/2022 11:55 01/25/2022 AM EDT 12:05 PM EDT Resulting Agency Comment Spec In Lab Angelina Reynoso MD CHEMISTRY ORDERABLES Performing Organization Address City/[facility]/ZIP [place] [address] (ABNORMAL) CK (01/25/2022 11:55 AM EDT) athologist [facility] CK, Total 36,897 (H) 0 - 200 [facility] LABORATORY Specimen Anatomical Collection Method Collection Time Receive d Time (Source) Location / / Volume Laterality Blood 01/25/2022 11:55 01/25/2022 AM EDT 12:05 PM EDT Resulting Agency Comment Spec In Lab Gemma B Pentland INDUSTRIAL PAINTER CHEMISTRY ORDERABLES Performing Organization Address City/State/ZIP Code Phon e Number [address] POCT Glucose (01/25/2022 8:31 AM EDT) [facility] POC Glucose 113 65 - 199 [facility] mg/dL [facility] Comment: Supplemental ranges: <140 mg/dL before meals <180 mg/dL all other times of the day Specimen Anatomical Collection Method Collection Time Receive d Time (Source) Location / / Volume Laterality Blood 01/25/2022 8:31 AM 2 8:31 EDT AM EDT Tex Robles MD POINT OF CARE TEST ORDERABLE S Performing Organization Address City/State/ZIP [place] [address] (ABNORMAL) CK (01/25/2022 8:20 AM EDT) [facility] CK, Total 36,878 (H) 0 - 200 [facility] LABORATORY Specimen Anatomical Collection Method Collection Time Receive d Time (Source) Location / / Volume Laterality Blood 01/25/2022 8:20 AM 2 8:37 EDT AM EDT Resulting Agency Comment Spec In Lab Gemma B Pentland INDUSTRIAL PAINTER CHEMISTRY ORDERABLES Performing Organization Address City/State/ZIP [place] [address] (ABNORMAL) BLOOD GAS 2 ARTERIAL (01/25/2022 6:22 AM EDT) Analysis Performed At Patho logist Time Signature pH Art 7.45 7.35 - [facility] 7.45 [facility] pCO2 Art 33 (L) 35 - 45 [facility] mmHg [facility] pO2 Art 114 (H) 85 - 104 [facility] HCO3 Art 22.4 20.0 - [facility] 26.0 [facility] mmol/L [facility] LABORATORY BE Art -1.6 -3.0 - 3.0 [facility] mmol/L [facility] Hgb Blood Gas 13.3 (L) 13.7 - [facility] 16.5 g/dL [facility] O2HB Art 97.0 94.0 - [facility] 97.0 % [facility] COHB Art 0.3 % [facility] Comment: Nonsmokers: 0.5-1.5% COHB Smokers: Variable, but usually less than 10% Toxic: 20-30% COHB Lethal: Greater than 60% COHB METHB Art 0.2 <=1.5 % [facility] Na Whole Blood 131 (L) 135 - 145 mmol/L [facility] K Whole Blood 5.0 3.5 - 5.0 mmol/L [facility] Comment: Please note: Patients with WBC >100,000 may have falsely elevated Potassium levels. Contact the Clinical Chemistry L aboratory if there are any questions. ICa Whole Blood 1.21 1.15 - 1.33 mmol/L [facility] Comment: Note: ??Total bilirubin higher than 20 m g/dL may lead to falsely low ionized calcium. CL Whole Blood 103 98 - 107 mmol/L [facility] Gluc Whole Bld 122 65 - 199 mg/dL [facility] Comment: Diabetes: >=200 mg/dL plus symp toms. Lactate WB 1.3 0.5 - 2.2 mmol/L [facility] FIO2 Art 35 % [facility] PF Ratio Art 326 [facility] Specimen Anatomical Collection Method Collection Time Receive d Time (Source) Location / / Volume Laterality Blood 01/25/2022 6:22 AM 2 6:22 EDT AM EDT Tex Robles MD CHEMISTRY ORDERABLES Performing Organization Address City/[facility]/ZIP Code Phon e Number [address] POCT Glucose (01/25/2022 3:49 AM EDT) P athologist Signature POC Glucose 121 65 - 199 [facility] mg/dL [facility] Comment: Supplemental ranges: <140 mg/dL before meals <180 mg/dL all other times of the day Specimen Anatomical Collection Method Collection Time Receive d Time (Source) Location / / Volume Laterality Blood 01/25/2022 3:49 AM 2 3:49 EDT AM EDT Tex Robles MD POINT OF CARE TEST ORDERABLE S Performing Organization Address City/[facility]/ZIP [place] [address] Scan, Peripheral Blood (01/25/2022 12:30 AM EDT) [facility] [email or web address] Method Time Signature Plat Estimate Decreased [facility] RBC Morphology Normal [facility] Specimen Anatomical Collection Method Collection Time Receive d Time (Source) Location / / Volume Laterality Blood 01/25/2022 12:30 01/25/2022 AM EDT 12:39 AM EDT Resulting Agency Comment Spec In Lab Cristina Hillman APRN HEMATOLOGY ORDERABLES Performing Organization Address City/[facility]/ZIP [place] [address] (ABNORMAL) Differential, Automated (01/25/2022 12:30 AM EDT) [email or web address] Method Time Signature Neutrophils % 77.1 % [facility] Neutr Abs (ANC) 6.61 (H) 1.70 - [facility] 6.10 [facility] x10(3)/[facility] LABORATORY Lymphocytes % 12.9 % [facility] Lymphocytes Abs 1.1 0.9 - 3.2 [facility] x10(3)/[facility] LABORATORY Monocytes % 7.5 % [facility] Monocyte Abs 0.6 0.3 - 0.9 [facility] x10(3)/[facility] LABORATORY Eosinophils % 0.3 % [facility] Eosinophils Abs 0.0 0.0 - 0.4 [facility] x10(3)/[facility] LABORATORY Basophils % 0.3 % [facility] Basophils Abs 0.0 0.0 - 0.1 [facility] x10(3)/[facility] LABORATORY Immature Gran % 1.90 % [facility] Comment: Immature granulocytes(IG's)percentage an d absolute count will include metamyelocytes, myelocytes, and promyelo cytes. Blood smears from CBCs yielding IG's will be scanned manually for concor dance. If this scan disagrees with the automated IG or if promyelocytes are not ed, a manual differential will be performed. Gemini Gran Abs 0.16 (H) 0.00 - 0.04 x10(3)/[facility] LABORATORY Specimen Anatomical Collection Method Collection Time Receive d Time (Source) Location / / Volume Laterality Blood 01/25/2022 12:30 01/25/2022 AM EDT 12:39 AM EDT Resulting Agency Comment Spec In Lab Cristina Hillman APRN HEMATOLOGY ORDERABLES Performing Organization Address City/State/[place] [address] (ABNORMAL) Hemogram (01/25/2022 12:30 AM EDT) Analysis Performed At Patho logist Time Signature WBC 8.6 4.0 - 9.5 [facility] x10(3)/[facility] LABORATORY RBC 3.39 (L) 4.58 - [facility] 5.54 [facility] x10(6)/[facility] LABORATORY Hemoglobin 11.0 (L) 13.7 - [facility] 16.5 g/dL [facility] Hematocrit 31.2 (L) 40.5 - [facility] 48.5 % [facility] MCV 92.0 82.9 - [facility] 93.1 [facility] LABORATORY MCH 32.4 (H) 27.5 - [facility] 32.1 pg [facility] MCHC 35.3 32.0 - [facility] 35.7 g/dL [facility] Platelets 88 (L) 145 - 357 [facility] x10(3)/[facility] LABORATORY RDWSD 41.2 36.0 - [facility] 45.0 [facility] LABORATORY RDWCV 12.2 11.4 - [facility] 13.8 % [facility] MPV 10.6 7.6 - 12.9 [facility] nRBC % Auto 0.0 % [facility] nRBC Abs Auto 0.000 0.000 - [facility] 0.000 [facility] x10(3)/[facility] LABORATORY Specimen Anatomical Collection Method Collection Time Receive d Time (Source) Location / / Volume Laterality Blood 01/25/2022 12:30 01/25/2022 AM EDT 12:39 AM EDT Resulting Agency Comment Spec In Lab Gemma B Pentland INDUSTRIAL PAINTER HEMATOLOGY ORDERABLES Performing Organization Address City/State/ZIP [place] [address] (ABNORMAL) CK (01/25/2022 12:30 AM EDT) P athologist [facility] CK, Total 42,239 (H) 0 - 200 [facility] unit/L [facility] Specimen Anatomical Collection Method Collection Time Receive d Time (Source) Location / / Volume Laterality Blood 01/25/2022 12:30 01/25/2022 AM EDT 12:39 AM EDT Resulting Agency Comment Spec In Lab Gemma B Pentland INDUSTRIAL PAINTER CHEMISTRY ORDERABLES Performing Organization Address City/State/ZIP Code Phon e Number [address] (ABNORMAL) Hepatic Function Panel (01/25/2022 12:30 AM EDT) P athologist Signature Total Protein 4.1 (L) 6.1 - 8.0 [facility] g/dL [facility] Albumin 2.0 (L) 3.2 - 5.2 [facility] g/dL [facility] AST 797 (H) 0 - 39 [facility] unit/L [facility] ALT 583 (H) 0 - 55 [facility] unit/L [facility] Alk Phos 51 40 - 130 [facility]/L [facility] Total 0.3 0.2 - 1.3 [facility] Bilirubin mg/dL [facility] Bili, Direct 0.1 0.0 - 0.3 [facility] mg/dL [facility] Specimen Anatomical Collection Method Collection Time Receive d Time (Source) Location / / Volume Laterality Blood 01/25/2022 12:30 01/25/2022 AM EDT 12:39 AM EDT Resulting Agency Comment Spec In Lab Cristina Hillman APRN CHEMISTRY ORDERABLES Performing Organization Address City/State/[place] [address] (ABNORMAL) Basic Metabolic Panel (non-fasting) (01/25/2022 12:30 AM EDT) athologist Signature Glucose Lvl 129 65 - 199 [facility] mg/dL [facility] Comment: Diabetes: >=200 mg/dL plus symp toms BUN 30 (H) 10 - 20 mg/dL [facility] Creatinine 2.39 (H) 0.80 - 1.50 mg/dL [facility] Sodium 135 135 - 145 mmol/L [facility] Potassium 5.0 3.5 - 5.0 mmol/L [facility] Comment: Please note: ??Patients with WBC >100,00 0 may have falsely elevated Potassium levels. ??For accurate Potassium quantif ication in these patients send serum separator tube (gold top) for subsequent determinations. ??Contact the Clinical Chemistry Laboratory if there are any qu estions. Chloride 105 98 - 107 mmol/L [facility] CO2 24 22 - 31 mmol/L [facility] Anion Gap 6 5 - 15 mmol/L [facility] Calcium 8.2 (L) 8.5 - 10.5 mg/dL [facility] Estimated GFR 36 (L) >=60 mL/min/1.73 m?? [facility] Comment: This patient's estimated [...] Organization Address City/State/ZIP Code Phon e Number [address] Phosphorus (01/25/2022 12:30 AM EDT) P athologist Signature Phosphorus 3.9 2.5 - 4.5 [facility] mg/dL [facility] Specimen Anatomical Collection Method Collection Time Receive d Time (Source) Location / / Volume Laterality Blood 01/25/2022 12:30 01/25/2022 AM EDT 12:39 AM EDT Resulting Agency Comment Spec In Lab Gela Novak MD CHEMISTRY ORDERABLES Performing Organization Address City/State/ZIP Code Phon e Number [address] Magnesium (01/25/2022 12:30 AM EDT) P athologist Signature Magnesium 0.89 0.69 - 1.07 [facility] mmol/L [facility] Specimen Anatomical Collection Method Collection Time Receive d Time (Source) Location / / Volume Laterality Blood 01/25/2022 12:30 01/25/2022 AM EDT 12:39 AM EDT Resulting Agency Comment Spec In Lab Gela Novak MD CHEMISTRY ORDERABLES Performing Organization Address City/State/ZIP Code Phon e Number [address] POCT Glucose (01/25/2022 12:19 AM EDT) P athologist Signature POC Glucose 126 65 - 199 [facility] mg/dL [facility] Comment: Supplemental ranges: <140 mg/dL before meals <180 mg/dL all other times of the day Specimen Anatomical Collection Method Collection Time Receive d Time (Source) Location / / Volume Laterality Blood 01/25/2022 12:19 01/25/2022 AM EDT 12:19 AM EDT Tex Robles MD POINT OF CARE TEST ORDERABLE S Performing Organization Address City/[facility]/ZIP [place] [address] Angiogram Carotids (01/24/2022 [...] who have questions please contact the health career technical education teacher that requested your imaging first. ? Narrative 01/25/2022 10:26 AM EDT EXAMINATION: CT ANGIOGRAM [place] OF [place], CT ANGIOGRAM CAROTIDS CLINICAL HISTORY: [...] different from the original. EXAMINATION: CT ANGIOGRAM [place] OF [place], CT ANGIOGRAM CAROTIDS CLINICAL [...] ho have questions please contact the health career technical education teacher that requested your imaging first. Agnieszka López INDUSTRIAL PAINTER IMG CT ORDERABLES CT Angiogram [place] of [place] (01/24/2022 11:32 PM EDT) Anatomical [...] who have questions please contact the health career technical education teacher that requested your imaging first. ? Narrative 01/25/2022 10:26 AM EDT EXAMINATION: CT ANGIOGRAM [place], CT ANGIOGRAM CAROTIDS CLINICAL HISTORY: [...] different from the original. EXAMINATION: CT ANGIOGRAM [place] OF [place], CT ANGIOGRAM CAROTIDS CLINICAL [...] ho have questions please contact the health career technical education teacher that requested your imaging first. Agnieszka López INDUSTRIAL PAINTER IMG CT ORDERABLES POCT Glucose (01/24/2022 8:11 PM EDT) athologist Signature POC Glucose 135 65 - 199 [facility] mg/dL [facility] Comment: Supplemental ranges: <140 mg/dL before meals <180 mg/dL all other times of the day Specimen Anatomical Collection Method Collection Time Receive d Time (Source) Location / / Volume Laterality Blood 01/24/2022 8:11 PM 2 8:11 EDT PM EDT Tex Robles MD POINT OF CARE TEST ORDERABLE S Performing Organization Address City/State/ZIP [place] [address] (ABNORMAL) CK (01/24/2022 6:20 PM EDT) athologist Signature CK, Total 50,445 (H) 0 - 200 [facility] unit/L [facility] Specimen Anatomical Collection Method Collection Time Receive d Time (Source) Location / / Volume Laterality Blood 01/24/2022 6:20 PM 2 6:27 EDT PM EDT Resulting Agency Comment Spec In Lab Cristina Hillman INDUSTRIAL PAINTER CHEMISTRY ORDERABLES Performing Organization Address City/State/ZIP [place] [address] MRI Brain wo Contrast [...] who have questions please contact the health career technical education teacher that requested your imaging first. ? Electronically signed by: REECE Rosenberg [facility] ([phone]), at 01/24/2022 4:39 PM Narrative 01/24/2022 4:39 [...] ho have questions please contact the health career technical education teacher that requested your imaging first. Cristina Hillman INDUSTRIAL PAINTER IMG MRI ORDERABLES MRSA PCR (01/24/2022 1:10 PM EDT) [facility] Method Time Signature MRSA Result Negative Negative [facility] MRSA Interp Negative for methicillin-resistant Staphylococcus aureus (MRSA) [facility] This test was performed using the GeneXpert?? Dx System an d the Xpert MRSA MEMORIAL Assay. The MRSA target DNA was not detec karina. The sample processing control and HOSPITAL probe check were valid. The performance of this test was determined by the [facility] Molecular Pathology Laboratory. It has been maximus red by the U.S. Food and Drug Administration for clinical use. Comment: [VERIFIED DATE]01.25.22 Verified By:Alfonso Soto (Electronic Signature) Specimen (Source) Anatomical Collection Method Collection Time Re ceived Time Location / / Volume Laterality Nasopharyngeal Swab 01/24/2022 1:10 01/25 PM EDT 7:30 AM EDT Resulting Agency Comment Spec In Lab Agnieszka López INDUSTRIAL PAINTER MICROBIOLOGY - GENERAL ORDER JT Performing Organization Address City/State/[place] [address] (ABNORMAL) CK (01/24/2022 12:14 PM EDT) athologist Signature CK, Total 61,457 (H) 0 - 200 [facility]ORY Specimen Anatomical Collection Method Collection Time Receive d Time (Source) Location / / Volume Laterality Blood 01/24/2022 12:14 01/24/2022 1:00 PM EDT PM EDT Resulting Agency Comment Spec In Lab Gemma B Rafy INDUSTRIAL PAINTER CHEMISTRY ORDERABLES Performing Organization Address City/State/ZIP [place] [address] POCT Glucose (01/24/2022 12:13 PM EDT) athologist Signature POC Glucose 132 65 - 199 [facility] mg/dL [facility] Comment: Supplemental ranges: <140 mg/dL before meals <180 mg/dL all other times of the day Specimen Anatomical Collection Method Collection Time Receive d Time (Source) Location / / Volume Laterality Blood 01/24/2022 12:13 01/24/2022 PM EDT 12:13 PM EDT Tex Robles MD POINT OF CARE TEST ORDERABLE S Performing Organization Address City/State/ZIP [place] [address] ECHOCARDIOGRAM COMPLETE W CONTRAST (01/24/2022 9:30 AM EDT) Anatomical Region Laterality Modality Cardiac Other Specimen (Source) Anatomical Collection Method Collection Time Re ceived Time Location / / Volume Laterality 01/23/2022 12:16 PM EDT Narrative 01/24/2022 11:52 AM EDT [facility] ?[address] ? [place] [address] ?Voice: ?Fax: ? Echocardiogram Report Name: ALIX HOLLAND ?Study Date : 01/23/2022 12:16 PM ?BP: 96/65 mmHg ?Patient Location: [address] A : 1990 ?Height: 183 cm ? Account: [id number] Age: 31 yrs ?Weigh t: 102 kg [...] 05/03/2018, the prior LVEF was normal. Procedure Complete-96372. Right ventricular strain . Image enhancement Optison [...] note might be different from the original. [facility] [address] [place] [id number] Voice: Fax: Echocardiogram Report Name: ALIX HOLLAND Study Date: 2021 12:16 PM BP: 96/65 mmHg Patient Location: [address] : 1990 Height: 183 cm Account: [id number] Age: 31 yrs Weight: 102 kg Gender: [...] 05/03/2018, the prior LVEF was normal. Procedure Complete-[id number]. Right ventricular strain . Image enhancement Optison [...] Signature POC Glucose 122 65 - 199 [facility] mg/dL [facility] Comment: Supplemental ranges: <140 mg/dL before meals <180 mg/dL all other times of the day Specimen Anatomical Collection Method Collection Time Receive d Time (Source) Location / / Volume Laterality Blood 01/24/2022 8:39 AM 2 8:39 EDT AM EDT Tex Robles MD POINT OF CARE TEST ORDERABLE S Performing Organization Address City/State/ZIP [place] [address] (ABNORMAL) CK (01/24/2022 6:25 AM EDT) athologist [facility] CK, Total 84,528 (H) 0 - 200 [facility] Differential unit/L [facility] Specimen Anatomical Collection Method Collection Time Receive d Time (Source) Location / / Volume Laterality Blood 01/24/2022 6:25 AM 2 6:40 EDT AM EDT Resulting Agency Comment Spec In Lab Tex Robles MD CHEMISTRY ORDERABLES Performing Organization Address City/State/ZIP [place] [address] Electrolytes panel (01/24/2022 6:25 AM EDT) athologist [facility] Sodium 136 135 - 145 [facility] mmol/L [facility] Potassium 4.4 3.5 - 5.0 [facility] mmol/L [facility] Comment: Please note: ??Patients with WBC >100,00 0 may have falsely elevated Potassium levels. ??For accurate Potassium quantif ication in these patients send serum separator tube (gold top) for subsequent determinations. ??Contact the Clinical Chemistry Laboratory if there are any qu estions. Chloride 103 98 - 107 mmol/L [facility] CO2 22 22 - 31 mmol/L [facility] Anion Gap 11 5 - 15 mmol/L [facility] Specimen Anatomical Collection Method Collection Time Receive d Time (Source) Location / / Volume Laterality Blood 01/24/2022 6:25 AM 6:40 EDT AM EDT Resulting Agency Comment Spec In Lab Angelina Reynoso MD CHEMISTRY ORDERABLES Performing Organization Address City/State/[place] [address] (ABNORMAL) Blood Gas Arterial ([facility]) (01/24/2022 6:20 AM EDT) Analysis Performed At Patho logist Time Signature pH Art 7.48 (H) 7.35 - [facility] 7.45 [facility] pCO2 Art 29 (L) 35 - 45 [facility] LABORATORY pO2 Art 68 (L) 85 - 104 [facility] LABORATORY HCO3 Art 21.1 20.0 - [facility] 26.0 [facility] mmol/[facility] BE Art -2.3 -3.0 - 3.0 [facility] mmol/L [facility] Hgb Blood Gas 14.7 13.7 - [facility] 16.5 g/dL [facility] O2HB Art 91.8 (L) 94.0 - [facility] 97.0 % [facility] COHB Art 0.8 % [facility] Comment: Nonsmokers: ??0.5-1.5% COHB Smokers: ??Variable, but usually less th an 10% Toxic: 20 - 30% COHB Lethal: ??Greater than 60% COHB METHB Art 0.3 <=1.5 % [facility] Na Whole Blood 133 (L) 135 - 145 mmol/L [facility] K Whole Blood 4.3 3.5 - 5.0 mmol/L [facility] Comment: Please note: ??Patients with WBC >100,00 0 may have falsely elevated Potassium levels. ??Contact the Clinical Chemistry Laboratory if there are any questions. ICa Whole Blood 1.16 1.15 - 1.33 mmol/L [facility] Comment: Note: ??Total bilirubin higher than 20 m g/dL may lead to falsely low ionized calcium. CL Whole Blood 103 98 - 107 mmol/L [facility] Gluc Whole Bld 134 65 - 199 mg/dL [facility] Comment: Diabetes: >=200 mg/dL plus symp toms. Lactate WB 1.9 0.5 - 2.2 mmol/L [facility] Specimen Anatomical Collection Method Collection Time Receive d Time (Source) Location / / Volume Laterality Blood Arterial Draw / 01/24/2022 6:20 AM 2021 6:30 Unknown EDT AM EDT Resulting Agency Comment Spec In Lab Angelina Reynoso MD CHEMISTRY ORDERABLES Performing Organization Address City/[facility]/ZIP [place] [address] POCT Glucose (01/24/2022 4:06 AM EDT) P athologist Signature POC Glucose 103 65 - 199 [facility] mg/dL [facility] Comment: Supplemental ranges: <140 mg/dL before meals <180 mg/dL all other times of the day Specimen Anatomical Collection Method Collection Time Receive d Time (Source) Location / / Volume Laterality Blood 01/24/2022 4:06 AM 4:06 EDT AM EDT Tex Robles MD POINT OF CARE TEST ORDERABLE S Performing Organization Address City/[facility]/ZIP [place] [address] (ABNORMAL) Differential, Automated (01/24/2022 12:18 AM EDT) Patholo gist Method Time Signature Neutrophils % 77.0 % [facility] Neutr Abs (ANC) 8.76 (H) 1.70 - [facility] 6.10 [facility] x10(3)/[facility] LABORATORY Lymphocytes % 13.0 % [facility] Lymphocytes Abs 1.5 0.9 - 3.2 [facility] x10(3)/[facility] LABORATORY Monocytes % 8.0 % [facility] Monocyte Abs 0.9 0.3 - 0.9 [facility] x10(3)/[facility] LABORATORY Eosinophils % 0.4 % [facility] Eosinophils Abs 0.0 0.0 - 0.4 [facility] x10(3)/[facility] LABORATORY Basophils % 0.4 % [facility] Basophils Abs 0.0 0.0 - 0.1 [facility] x10(3)/[facility] LABORATORY Immature Gran % 1.20 % [facility] Comment: Immature granulocytes(IG's)percentage an d absolute count will include metamyelocytes, myelocytes, and promyelo cytes. Blood smears from CBCs yielding IG's will be scanned manually for concor dance. If this scan disagrees with the automated IG or if promyelocytes are not ed, a manual differential will be performed. Gemini Gran Abs 0.14 (H) 0.00 - 0.04 x10(3)/[facility] LABORATORY Specimen Anatomical Collection Method Collection Time Receive d Time (Source) Location / / Volume Laterality Blood 01/24/2022 12:18 01/24/2022 AM EDT 12:25 AM EDT Resulting Agency Comment Spec In Lab Cristina Hillman APRN HEMATOLOGY ORDERABLES Performing Organization Address City/State/[place] [address] (ABNORMAL) Hemogram (01/24/2022 12:18 AM EDT) Analysis Performed At Patho logist Time Signature WBC 11.4 (H) 4.0 - 9.5 [facility] x10(3)/[facility] LABORATORY RBC 4.66 4.58 - [facility] HOSPITAL 5.54 [facility] x10(6)/[facility] LABORATORY Hemoglobin 14.8 13.7 - [facility] 16.5 g/dL [facility] Hematocrit 41.7 40.5 - [facility] 48.5 % [facility] MCV 89.5 82.9 - [facility] 93.1 fL [facility] MCH 31.8 27.5 - [facility] 32[facility]1 pg [facility] MCHC 35.5 32.0 - [facility] 35.7 g/dL [facility] Platelets 136 (L) 145 - 357 [facility] x10(3)/[facility] LABORATORY RDWSD 40.0 36.0 - [facility] 45.0 [facility] LABORATORY RDWCV 12.3 11.4 - [facility] 13.8 % [facility] MPV 10.1 7.6 - 12.9 [facility] LABORATORY nRBC % Auto 0.0 % [facility] LABORATORY nRBC Abs Auto 0.000 0.000 - [facility] 0.000 [facility] x10(3)/[facility] LABORATORY Specimen Anatomical Collection Method Collection Time Receive d Time (Source) Location / / Volume Laterality Blood 01/24/2022 12:18 01/24/2022 AM EDT 12:25 AM EDT Resulting Agency Comment Spec In Lab Cristina Hillman APRN HEMATOLOGY ORDERABLES Performing Organization Address City/State/[place] [address] (ABNORMAL) Basic Metabolic Panel (non-fasting) (01/24/2022 12:18 AM EDT) P athologist Signature Glucose Lvl 164 65 - 199 [facility] mg/dL [facility] Comment: Diabetes: >=200 mg/dL plus symp toms BUN 31 (H) 10 - 20 mg/dL [facility] LABORATORY Creatinine 3.00 (H) 0.80 - 1.50 mg/dL [facility] LABORATORY Sodium 138 135 - 145 mmol/L [facility] LABORATORY Potassium 4.7 3.5 - 5.0 mmol/L [facility] LABORATORY Comment: Please note: ??Patients with WBC >100,00 0 may have falsely elevated Potassium levels. ??For accurate Potassium quantif ication in these patients send serum separator tube (gold top) for subsequent determinations. ??Contact the Clinical Chemistry Laboratory if there are any qu estions. Chloride 103 98 - 107 mmol/L [facility] LABORATORY CO2 21 (L) 22 - 31 mmol/L [facility] LABORATORY Anion Gap 14 5 - 15 mmol/L [facility] LABORATORY Calcium 8.0 (L) 8.5 - 10.5 mg/dL [facility] LABORATORY Comment: result rechecked-trb Estimated GFR 28 (L) >=60 mL/min/1.73 m?? [facility] LABORATORY Comment: This patient's estimated [...] Organization Address City/State/ZIP Code Phon e Number [address] Phosphorus (01/24/2022 12:18 AM EDT) P athologist Signature Phosphorus 4.5 2.5 - 4.5 [facility] mg/dL [facility] Specimen Anatomical Collection Method Collection Time Receive d Time (Source) Location / / Volume Laterality Blood 01/24/2022 12:18 01/24/2022 AM EDT 12:25 AM EDT Resulting Agency Comment Spec In Lab Gela Novak MD CHEMISTRY ORDERABLES Performing Organization Address City/[facility]/ZIP Code Phon e Number [address] Magnesium (01/24/2022 12:18 AM EDT) P athologist Signature Magnesium 0.92 0.69 - 1.07 [facility] mmol/L [facility] LABORATORY Specimen Anatomical Collection Method Collection Time Receive d Time (Source) Location / / Volume Laterality Blood 01/24/2022 12:18 01/24/2022 AM EDT 12:25 AM EDT Resulting Agency Comment Spec In Lab Gela Novak MD CHEMISTRY ORDERABLES Performing Organization Address City/[facility]/ZIP [place] [address] (ABNORMAL) Hepatic Function Panel (01/24/2022 12:18 AM EDT) Patholo gist Method Time Signature Total Protein 4.5 (L) 6.1 - 8.0 [facility] g/dL [facility] Albumin 2.2 (L) 3.2 - 5.2 [facility] g/dL [facility] AST 1,181 (H) 0 - 39 [facility] unit/L [facility] ALT 682 (H) 0 - 55 [facility] unit/L [facility] Alk Phos 65 40 - 130 [facility] unit/L [facility] Total 0.5 0.2 - 1.3 [facility] Bilirubin mg/dL [facility] Bili, Direct 0.2 0.0 - 0.3 [facility] M[facility] mg/dL [facility] Specimen Anatomical Collection Method Collection Time Receive d Time (Source) Location / / Volume Laterality Blood 01/24/2022 12:18 01/24/2022 AM EDT 12:25 AM EDT Resulting Agency Comment Spec In Lab Cristina Hillman APRN CHEMISTRY ORDERABLES Performing Organization Address City/[facility]/ZIP [place] [address] (ABNORMAL) Electrolytes panel (01/24/2022 12:18 AM EDT) athologist Signature Sodium 138 135 - 145 [facility] mmol/L [facility] Potassium 4.7 3.5 - 5.0 [facility] mmol/L [facility] Comment: Please note: ??Patients with WBC >100,00 0 may have falsely elevated Potassium levels. ??For accurate Potassium quantif ication in these patients send serum separator tube (gold top) for subsequent determinations. ??Contact the Clinical Chemistry Laboratory if there are any qu estions. Chloride 103 98 - 107 mmol/L [facility] LABORATORY CO2 21 (L) 22 - 31 mmol/L [facility] LABORATORY Anion Gap 14 5 - 15 mmol/L [facility] LABORATORY Specimen Anatomical Collection Method Collection Time Receive d Time (Source) Location / / Volume Laterality Blood 01/24/2022 12:18 01/24/2022 AM EDT 12:25 AM EDT Resulting Agency Comment Spec In Lab Gemma B Pentland INDUSTRIAL PAINTER CHEMISTRY ORDERABLES Performing Organization Address City/[facility]/ZIP [facility] Phon e Number [address] (ABNORMAL) CK (01/24/2022 12:18 AM EDT) athologist Signature CK, Total 84,860 (H) 0 - 200 [facility] unit/L [facility] Specimen Anatomical Collection Method Collection Time Receive d Time (Source) Location / / Volume Laterality Blood 01/24/2022 12:18 01/24/2022 AM EDT 12:25 AM EDT Resulting Agency Comment Spec In Lab Gemma B Pentland INDUSTRIAL PAINTER CHEMISTRY ORDERABLES Performing Organization Address City/[facility]/ZIP [place] [address] POCT Glucose (01/24/2022 12:17 AM EDT) athologist Signature POC Glucose 158 65 - 199 [facility] mg/dL [facility] Comment: Supplemental ranges: <140 mg/dL before meals <180 mg/dL all other times of the day Specimen Anatomical Collection Method Collection Time Receive d Time (Source) Location / / Volume Laterality Blood 01/24/2022 12:17 01/24/2022 AM EDT 12:17 AM EDT Tex Robles MD POINT OF CARE TEST ORDERABLE S Performing Organization Address City/[facility]/ZIP [place] [address] (ABNORMAL) BLOOD GAS 2 ARTERIAL (01/24/2022 12:16 AM EDT) Analysis Performed At Patho logist Time Signature pH Art 7.48 (H) 7.35 - [facility] 7.45 [facility] pCO2 Art 30 (L) 35 - 45 [facility] mmHg [facility] pO2 Art 70 (L) 85 - 104 [facility] mmHg [facility] HCO3 Art 22.0 20.0 - [facility] 26.0 [facility] mmol/L [facility] LABORATORY BE Art -1.5 -3.0 - 3.0 [facility] mmol/L [facility] Hgb Blood Gas 15.9 13.7 - [facility] 16.5 g/dL [facility] O2HB Art 92.9 (L) 94.0 - [facility] 97.0 % [facility] COHB Art 0.6 % [facility] LABORATORY Comment: Nonsmokers: 0.5-1.5% COHB Smokers: Variable, but usually less than 10% Toxic: 20-30% COHB Lethal: Greater than 60% COHB METHB Art 0.4 <=1.5 % [facility] LABORATORY Na Whole Blood 133 (L) 135 - 145 mmol/L [facility] LABORATORY K Whole Blood 4.5 3.5 - 5.0 mmol/L [facility] LABORATORY Comment: Please note: Patients with WBC >100,000 may have falsely elevated Potassium levels. Contact the Clinical Chemistry L aboratory if there are any questions. ICa Whole Blood 1.11 (L) 1.15 - 1.33 mmol/L [facility] LABORATORY Comment: Note: ??Total bilirubin higher than 20 m g/dL may lead to falsely low ionized calcium. CL Whole Blood 103 98 - 107 mmol/L [facility] LABORATORY Gluc Whole Bld 164 65 - 199 mg/dL [facility] LABORATORY Comment: Diabetes: >=200 mg/dL plus symp toms. Lactate WB 2.4 (H) 0.5 - 2.2 mmol/L [facility] LABORATORY FIO2 Art 21 % [facility] LABORATORY PF Ratio Art 333 [facility] LABORATORY Specimen Anatomical Collection Method Collection Time Receive d Time (Source) Location / / Volume Laterality Blood 01/24/2022 12:16 01/24/2022 AM EDT 12:16 AM EDT Tex Robles MD CHEMISTRY ORDERABLES Performing Organization Address City/State/ZIP [place] [address] POCT Glucose (01/23/2022 8:20 PM EDT) P athologist Signature POC Glucose 93 65 - 199 [facility] mg/dL [facility] Comment: Supplemental ranges: <140 mg/dL before meals <180 mg/dL all other times of the day Specimen Anatomical Collection Method Collection Time Receive d Time (Source) Location / / Volume Laterality Blood 01/23/2022 8:20 PM 8:20 EDT PM EDT Tex Robles MD POINT OF CARE TEST ORDERABLE S Performing Organization Address City/State/ZIP [place] [address] (ABNORMAL) Blood Gas Arterial (NL[facility]) (01/23/2022 6:10 PM EDT) Analysis Performed At Patho logist Time Signature pH Art 7.46 (H) 7.35 - [facility] 7.45 [facility] pCO2 Art 31 (L) 35 - 45 [facility] mmHg [facility] pO2 Art 79 (L) 85 - 104 [facility] mmHg [facility] HCO3 Art 21.5 20.0 - [facility] 26.0 [facility] mmol/L [facility] LABORATORY BE Art -2.4 -3.0 - 3.0 [facility] mmol/L [facility] Hgb Blood Gas 17.4 (H) 13.7 - [facility] 16.5 g/dL [facility] O2HB Art 95.5 94.0 - [facility] 97.0 % [facility] COHB Art 0.3 % [facility] LABORATORY Comment: Nonsmokers: ??0.5-1.5% COHB Smokers: ??Variable, but usually less th an 10% Toxic: 20 - 30% COHB Lethal: ??Greater than 60% COHB METHB Art 0.0 <=1.5 % [facility] Na Whole Blood 135 135 - 145 mmol/L [facility]OR[facility] K Whole Blood 5.0 3.5 - 5.0 mmol/L [facility] LABORATORY Comment: Please note: ??Patients with WBC >100,00 0 may have falsely elevated Potassium levels. ??Contact the Clinical Chemistry Laboratory if there are any questions. ICa Whole Blood 1.15 1.15 - 1.33 mmol/L [facility] LABORATORY Comment: Note: ??Total bilirubin higher than 20 m g/dL may lead to falsely low ionized calcium. CL Whole Blood 104 98 - 107 mmol/L [facility] LABORATORY Gluc Whole Bld 144 65 - 199 mg/dL [facility] Comment: Diabetes: >=200 mg/dL plus symp toms. Lactate WB 2.6 (H) 0.5 - 2.2 mmol/L [facility] FIO2 Art 60 % [facility]OR[facility] PF Ratio Art 132 [facility] LABORATORY Specimen Anatomical Collection Method Collection Time Receive d Time (Source) Location / / Volume Laterality Blood Arterial Draw / 01/23/2022 6:10 PM 2021 6:21 Unknown EDT PM EDT Resulting Agency Comment Spec In Lab Angelina Reynoso MD CHEMISTRY ORDERABLES Performing Organization Address City/State/[place] [address] HIV Screen, 4th Generation ([facility]CGP/APD/NL[facility]) (01/23/2022 6:10 PM EDT) Analysis Performed At Patho logist Time Signature HIV-1/2 Ab and Negative Negative [facility] LABORATORY Comment: This 4th Generation HIV [...] Low Risk of HIV Infection [facility] LABORATORY Specimen Anatomical Collection Method Collection Time Receive d Time (Source) Location / / Volume Laterality Blood 01/23/2022 6:10 PM 2 6:21 EDT PM EDT Resulting Agency Comment Spec In Lab Tex Robles MD IMMUNOLOGY ORDERABLES Performing Organization Address City/[facility]/ZIP [place] [address] Hepatitis A Antibody, Total (01/23/2022 6:10 PM EDT) Analysis Performed At Patho logist Time Signature Hepatitis A Ab Negative Negative [facility] LABORATORY Specimen Anatomical Collection Method Collection Time Receive d Time (Source) Location / / Volume Laterality Blood 01/23/2022 6:10 PM 2 6:21 EDT PM EDT Resulting Agency Comment Spec In Lab Tex Robles MD IMMUNOLOGY ORDERABLES Performing Organization Address City/[facility]/ZIP [place] [address] (ABNORMAL) CK (01/23/2022 6:10 PM EDT) P athologist Signature CK, Total 158,050 0 - 200 [facility] (H) unit/[facility] LABORATORY Specimen Anatomical Collection Method Collection Time Receive d Time (Source) Location / / Volume Laterality Blood 01/23/2022 6:10 PM 2 6:21 EDT PM EDT Resulting Agency Comment Spec In Lab Cristina Hillman INDUSTRIAL PAINTER CHEMISTRY ORDERABLES Performing Organization Address City/[facility]/ZIP [place] [address] (ABNORMAL) Electrolytes panel (01/23/2022 6:10 PM EDT) P athologist Signature Sodium 136 135 - 145 [facility] mmol/L [facility] Potassium 5.0 3.5 - 5.0 [facility] mmol/L [facility] Comment: Please note: ??Patients with WBC >100,00 0 may have falsely elevated Potassium levels. ??For accurate Potassium quantif ication in these patients send serum separator tube (gold top) for subsequent determinations. ??Contact the Clinical Chemistry Laboratory if there are any qu estions. Chloride 103 98 - 107 mmol/L [facility] LABORATORY CO2 20 (L) 22 - 31 mmol/L [facility] LABORATORY Anion Gap 13 5 - 15 mmol/L [facility] LABORATORY Specimen Anatomical Collection Method Collection Time Receive d Time (Source) Location / / Volume Laterality Blood 01/23/2022 6:10 PM 2 6:21 EDT PM EDT Resulting Agency Comment Spec In Lab Cristina Hillman APRN CHEMISTRY ORDERABLES Performing Organization Address City/[facility]/ZIP [place] [address] Phosphorus (01/23/2022 6:10 PM EDT) P athologist Signature Phosphorus 4.2 2.5 - 4.5 [facility]/dL [facility] Specimen Anatomical Collection Method Collection Time Receive d Time (Source) Location / / Volume Laterality Blood 01/23/2022 6:10 PM 2 6:21 EDT PM EDT Resulting Agency Comment Spec In Lab Angelina Reynoso MD CHEMISTRY ORDERABLES Performing Organization Address City/[facility]/ZIP [place] [address] Magnesium (01/23/2022 6:10 PM EDT) P athologist Signature Magnesium 0.94 0.69 - 1.07 [facility] mmol/L [facility] Specimen Anatomical Collection Method Collection Time Receive d Time (Source) Location / / Volume Laterality Blood 01/23/2022 6:10 PM 2 6:21 EDT PM EDT Resulting Agency Comment Spec In Lab Angelina Reynoso MD CHEMISTRY ORDERABLES Performing Organization Address City/[facility]/ZIP [place] [address] (ABNORMAL) Creatinine (01/23/2022 6:10 PM EDT) Analysis Performed At Patho logist Time Signature Creatinine 2.88 (H) 0.80 - [facility] 1.50 mg/dL [facility] Estimated GFR 29 (L) >=60 [facility] mL/min/1.7 [facility] 3 m? HOSPITAL LABORATORY Comment: [...] City/State/ZIP Code Phon [place] [address] (ABNORMAL) Troponin (01/23/2022 6:10 PM EDT) P athologist Signature Troponin-T 0.14 (H) 0.00 - [facility] 0.00 ng/mL [facility] Comment: The 99th percentile for Troponin T is le ss than 0.01 ng/mL, any detectable cTnT concentration using this assay should be considered elevated. According to the third universal definit ion of myocardial infarction the following criteria with a clinical prese ntation consistent with acute myocardial ischemia meets the diagnosis for a myocardial infarction ([place]). Detection of a rise and/or fall of [...] additional sample may be indicated. Reference: Third Caraway Definition of Myocardial Infarction. Journal of the [place] [employer] 2012;60:1581-98 Specimen Anatomical Collection Method Collection Time Receive d Time (Source) Location / / Volume Laterality Blood 01/23/2022 6:10 PM 6:21 EDT PM EDT Resulting Agency Comment Spec In Lab Cristina B doubleTwist INDUSTRIAL PAINTER CHEMISTRY ORDERABLES Performing Organization Address City/State/[place] [address] XR Chest One View [...] who have questions please contact the health career technical education teacher that requested your imaging first. ? Narrative [...] ho have questions please contact the health career technical education teacher that requested your imaging first. Tex Travis HARTLEY IMG DX ORDERABLES (ABNORMAL) Calcium Ionized Whole Blood, HONORIO (01/23/2022 3:12 PM EDT) Analysis Performed At Patho logist Time Signature pH Honorio 7.42 7.32 - [facility] 7.42 [facility] ICa Whole 1.13 (L) 1.15 - [facility] Blood 1.33 [facility] mmol/L [facility] LABORATORY Comment: Note: ??Total bilirubin [...] Organization Address City/State/ZIP Code Phon e Number [address] POCT Glucose (01/23/2022 3:03 PM EDT) P athologist Signature POC Glucose 145 65 - 199 [facility] mg/dL [facility] Comment: Supplemental ranges: <140 mg/dL before meals <180 mg/dL all other times of the day Specimen Anatomical Collection Method Collection Time Receive d Time (Source) Location / / Volume Laterality Blood 01/23/2022 3:03 PM 3:03 EDT PM EDT Tex Robles MD POINT OF CARE TEST ORDERABLE S Performing Organization Address City/State/ZIP [place] [address] XR Tibia Fibula Left [...] who have questions please contact the health career technical education teacher that requested your imaging first. ? Narrative [...] ho have questions please contact the health career technical education teacher that requested your imaging first. Tex Robles MD IMG DX ORDERABLES XR [...] who have questions please contact the health career technical education teacher that requested your imaging first. ? Narrative [...] ho have questions please contact the health career technical education teacher that requested your imaging first. Tex Robles MD IMG DX ORDERABLES MRSA PCR (01/23/2022 12:47 PM EDT) [facility] Method Time Signature MRSA Result Negative Negative [facility] LABORATORY MRSA Interp Negative for methicillin-resistant Staphylococcus aureus (MRSA) [facility] This test was performed using the GeneXpert?? Dx System an d the Xpert MRSA MEMORIAL Assay. The MRSA target DNA was not detec karina. The sample processing control and HOSPITAL probe check were valid. The performance of this test was determined by the [facility] Molecular Pathology Laboratory. It has been maximus red by the U.S. Food and Drug Administration for clinical use. Comment: [VERIFIED DATE]01.25.22 Verified By:Nora Shay (Electronic Signature) Specimen (Source) Anatomical Collection Method Collection Time Re ceived Time Location / / Volume Laterality Nasopharyngeal Swab 01/23/2022 12:47 06/12/2021 PM EDT 12:37 PM EDT Resulting Agency Comment Spec In Lab Tex Roblse MD MICROBIOLOGY - GENERAL ORDER JT Performing Organization Address City/State/[place] [address] (ABNORMAL) BLOOD GAS 2 ARTERIAL (01/23/2022 11:56 AM EDT) Analysis Performed At Patho logis Time Signature pH Art 7.43 7.35 - [facility] 7.45 [facility] pCO2 Art 32 (L) 35 - 45 [facility] mmHg [facility] pO2 Art 86 85 - 104 [facility] LABORATORY HCO3 Art 20.8 20.0 - [facility] 26.0 [facility] mmol/L [facility] LABORATORY BE Art -3.5 (L) -3.0 - 3.0 [facility] mmol/L [facility] Hgb Blood Gas 16.1 13.7 - [facility] 16.5 g/dL [facility] O2HB Art 95.6 94.0 - [facility] 97.0 % [facility] COHB Art 0.2 % [facility] LABORATORY Comment: Nonsmokers: 0.5-1.5% COHB Smokers: Variable, but usually less than 10% Toxic: 20-30% COHB Lethal: Greater than 60% COHB METHB Art 0.4 <=1.5 % [facility] Na Whole Blood 137 135 - 145 mmol/L [facility] K Whole Blood 5.5 (H) 3.5 - 5.0 mmol/L [facility] LABORATORY Comment: Please note: Patients with WBC >100,000 may have falsely elevated Potassium levels. Contact the Clinical Chemistry L aboratory if there are any questions. ICa Whole Blood 1.04 (L) 1.15 - 1.33 mmol/L [facility] LABORATORY Comment: Note: ??Total bilirubin higher than 20 m g/dL may lead to falsely low ionized calcium. CL Whole Blood 104 98 - 107 mmol/L [facility] LABORATORY Gluc Whole Bld 144 65 - 199 mg/dL [facility] LABORATORY Comment: Diabetes: >=200 mg/dL plus symp toms. Lactate WB 2.7 (H) 0.5 - 2.2 mmol/L [facility] LABORAT[facility] FIO2 Art 60 % [facility]ORAT[facility] PF Ratio Art 143 [facility] LABORATORY Specimen Anatomical Collection Method Collection Time Receive d Time (Source) Location / / Volume Laterality Blood 01/23/2022 11:56 01/23/2022 AM EDT 11:56 AM EDT Tex Robles MD CHEMISTRY ORDERABLES Performing Organization Address City/[facility]/ZIP Code Phon e Number [address] Hepatitis B Surface Antigen (01/23/2022 11:50 AM EDT) Analysis Performed At Patho logist Time Signature HepB Surface Negative Negative [facility] LABORATORY Specimen Anatomical Collection Method Collection Time Receive d Time (Source) Location / / Volume Laterality Blood 01/23/2022 11:50 01/23/2022 AM EDT 12:00 PM EDT Resulting Agency Comment Spec In Lab Agnieszka López APRN CHEMISTRY ORDERABLES Performing Organization Address City/[facility]/ZIP Code Phon e Number [address] [address] Hepatitis B DNA, quantitative, PCR (01/23/2022 11:50 AM EDT) Component Value Ref Test Analysis Performed At Patholo gist Range Method Time Signature Hepatitis B Result: <10 IU/mL (Target Not Detected) MANDO RAMESH quantitative, Indication for Study: HBV Infection [facility] Analysis: Mullins Shayanty m HBV assay is an in vi tro polymerase chain reaction LABORATORY (PCR) assay for the quantification of Hepatitis B Virus (HBV ) DNA in human plasma (EDTA) from chronically HBV-infected individuals. Sample: plasma Method: Mullins RealTime HBV Assay Linear Range: 10 IU/mL ? 1,000,000,000 IU/mL Note: The [employer] m HBV Assay has been approved by the U.S. Food and Drug Administration. Specimen Anatomical Collection Method Collection Time Receive d Time (Source) Location / / Volume Laterality Blood 01/23/2022 11:50 01/25/2022 8:53 AM EDT AM EDT Resulting Agency Comment Spec In Lab Agnieszka López KATERYNA CHEMISTRY ORDERABLES Performing Organization Address City/[facility]/ZIP [place] [address] Hepatitis B Core Antibody, Total (01/23/2022 11:50 AM EDT) Analysis Performed At Patho logist Time Signature Hep B Core Ab Negative Negative [facility] LABORATORY Specimen Anatomical Collection Method Collection Time Receive d Time (Source) Location / / Volume Laterality Blood 01/23/2022 11:50 01/23/2022 AM EDT 12:00 PM EDT Resulting Agency Comment Spec In Lab Agnieszka López INDUSTRIAL PAINTER CHEMISTRY ORDERABLES Performing Organization Address City/[facility]/ZIP [place] [address] (ABNORMAL) Lower Respiratory Culture Tracheal Aspirate (01/23/2022 11:50 AM EDT) Component Value Ref Test Analysis Performed At Patholo gist Range Method Time Signature Lower Many Staphylococcus aureus MAR Y Respiratory Few mixed bacterial morphoty pes suggestive of normal upper respiratory yessy [place] Culture ([facility] LABORATORY Gram Stain Many Neutrophils JOSH No squamous epithelial cells [facility] Moderate Gram Positive Cocci [facility] LABORATORY Organism Staphylococcus JOSH aureus (A) [facility] LABORATORY Specimen Anatomical Collection Method Collection Time [...] Comment: Gentamicin is not a ppropriate for Assumption-therapy. Staphylococcus aureus Oxacillin VITEK 2 METHOD Sensitive [...] GENERAL ORDER JT Performing Organization Address City/[facility]/ZIP [place] [address] (ABNORMAL) Creatinine (01/23/2022 11:30 AM EDT) Analysis Performed At Patho logist Time Signature Creatinine 3.56 (H) 0.80 - JOSH MANDO 1.50 mg/dL [facility] LABORATORY Estimated GFR 23 (L) >=60 [place] [place] mL/min/1.7 [facility] 3 m?? HOSPITAL LABORATORY Comment: [...] Organization Address City/State/ZIP Code Phon e Number [address] (ABNORMAL) Phosphorus (01/23/2022 11:30 AM EDT) P athologist Signature Phosphorus 6.8 (H) 2.5 - 4.5 JOSH MANDO mg/dL [facility] Specimen Anatomical Collection Method Collection Time Receive d Time (Source) Location / / Volume Laterality Blood 01/23/2022 11:30 01/23/2022 AM EDT 11:40 AM EDT Resulting Agency Comment Spec In Lab Angelina Reynoso MD CHEMISTRY ORDERABLES Performing Organization Address City/[facility]/ZIP Code Phon e Number [address] Magnesium (01/23/2022 11:30 AM EDT) P athologist Signature Magnesium 0.86 0.69 - 1.07 [facility] LABORATORY Specimen Anatomical Collection Method Collection Time Receive d Time (Source) Location / / Volume Laterality Blood 01/23/2022 11:30 01/23/2022 AM EDT 11:40 AM EDT Resulting Agency Comment Spec In Lab Angelina Reynoso MD CHEMISTRY ORDERABLES Performing Organization Address [facility] [place] [address] (ABNORMAL) Electrolytes panel (01/23/2022 11:30 AM EDT) P athologist Signature Sodium 142 135 - 145 [facility] mmol/[facility] LABORATORY Potassium 5.6 (H) 3.5 - 5.0 [facility] mmol/[facility] LABORATORY Comment: Please note: ??Patients with WBC >100,00 0 may have falsely elevated Potassium levels. ??For accurate Potassium quantif ication in these patients send serum separator tube (gold top) for subsequent determinations. ??Contact the Clinical Chemistry Laboratory if there are any qu estions. Chloride 107 98 - 107 mmol/L [facility] CO2 19 (L) 22 - 31 mmol/L [facility] Anion Gap 16 (H) 5 - 15 mmol/L [facility] Specimen Anatomical Collection Method Collection Time Receive d Time (Source) Location / / Volume Laterality Blood 01/23/2022 11:30 01/23/2022 AM EDT 11:35 AM EDT Resulting Agency Comment Spec In Lab Cristina Hillman APRN CHEMISTRY ORDERABLES Performing Organization Address City/[facility]/[place] [address] (ABNORMAL) CK (01/23/2022 11:30 AM EDT) athologist Signature CK, Total 146,810 0 - 200 JOSH GILMORE (H) unit/L [facility] Specimen Anatomical Collection Method Collection Time Receive d Time (Source) Location / / Volume Laterality Blood 01/23/2022 11:30 01/23/2022 AM EDT 11:35 AM EDT Resulting Agency Comment Spec In Lab Gemma B Pentland INDUSTRIAL PAINTER CHEMISTRY ORDERABLES Performing Organization Address City/State/[place] [address] (ABNORMAL) Troponin (01/23/2022 11:30 AM EDT) athologist Signature Troponin-T 0.24 (H) 0.00 - [place] [place] 0.00 ng/mL [facility] Comment: The 99th percentile for Troponin T is le ss than 0.01 ng/mL, any detectable cTnT concentration using this assay should be considered elevated. According to the third universal definit ion of myocardial infarction the following criteria with a clinical prese ntation consistent with acute myocardial ischemia meets the diagnosis for a myocardial infarction ([place]). Detection of a rise and/or fall of [...] additional sample may be indicated. Reference: Third Caraway Definition of Myocardial Infarction. Journal of the [place] College [employer] 2012;60:1581-98 Specimen Anatomical Collection Method Collection Time Receive d Time (Source) Location / / Volume Laterality Blood 01/23/2022 11:30 01/23/2022 AM EDT 11:35 AM EDT Resulting Agency Comment Spec In Lab Cristina Hillman APRN CHEMISTRY ORDERABLES Performing Organization Address City/State/ZIP [place] [address] POCT Glucose (01/23/2022 11:01 AM EDT) P athologist Signature POC Glucose 119 65 - 199 [facility] mg/dL [facility] Comment: Supplemental ranges: <140 mg/dL before meals <180 mg/dL all other times of the day Specimen Anatomical Collection Method Collection Time Receive d Time (Source) Location / / Volume Laterality Blood 01/23/2022 11:01 01/23/2022 AM EDT 11:01 AM EDT Tex Robles MD POINT OF CARE TEST ORDERABLE S Performing Organization Address City/State/ZIP [place] [address] (ABNORMAL) BLOOD GAS 2 ARTERIAL (01/23/2022 9:18 AM EDT) Analysis Performed At Patho logist Time Signature pH Art 7.40 7.35 - [facility] 7.45 [facility] pCO2 Art 37 35 - 45 [facility] mmHg [facility] pO2 Art 61 (L) 85 - 104 [facility] LABORATORY HCO3 Art 22.3 20.0 - [facility] 26.0 [facility] mmol/L [facility] LABORATORY BE Art -2.6 -3.0 - 3.0 [facility] mmol/L [facility] Hgb Blood Gas 15.3 13.7 - [facility] 16.5 g/dL [facility] O2HB Art 91.2 (L) 94.0 - [facility] 97.0 % [facility] COHB Art 0.3 % [facility] Comment: Nonsmokers: 0.5-1.5% COHB Smokers: Variable, but usually less than 10% Toxic: 20-30% COHB Lethal: Greater than 60% COHB METHB Art 0.3 <=1.5 % [facility] Na Whole Blood 137 135 - 145 mmol/L [facility] K Whole Blood 4.5 3.5 - 5.0 mmol/L [facility] Comment: Please note: Patients with WBC >100,000 may have falsely elevated Potassium levels. Contact the Clinical Chemistry L aboratory if there are any questions. ICa Whole Blood 1.23 1.15 - 1.33 mmol/L [facility] Comment: Note: ??Total bilirubin higher than 20 m g/dL may lead to falsely low ionized calcium. CL Whole Blood 105 98 - 107 mmol/L [facility] Gluc Whole Bld 117 65 - 199 mg/dL [facility] Comment: Diabetes: >=200 mg/dL plus symp toms. Lactate WB 4.9 (Critical) 0.5 - 2.2 mmol/L [facility] Comment: Noted by instrument assembly supervisor. FIO2 Art 62 % [facility] PF Ratio Art 98 [facility] Temp Art 36.5 Celsius [facility] Specimen Anatomical Collection Method Collection Time Receive d Time (Source) Location / / Volume Laterality Blood 01/23/2022 9:18 AM 9:18 EDT AM EDT Tex Robles MD CHEMISTRY ORDERABLES Performing Organization Address City/State/[place] [address] (ABNORMAL) BLOOD GAS 2 ARTERIAL (01/23/2022 8:37 AM EDT) Analysis Performed At Patho logist Time Signature pH Art 7.40 7.35 - [facility] 7.45 [facility] pCO2 Art 33 (L) 35 - 45 [facility] LABORATORY pO2 Art 97 85 - 104 [facility] LABORATORY HCO3 Art 20.3 20.0 - [facility] 26.0 [facility] mmol/[facility] LABORAT[facility] BE Art -4.4 (L) -3.0 - 3.0 [facility] mmol/L [facility] Hgb Blood Gas 15.3 13.7 - [facility] 16.5 g/dL [facility] O2HB Art 96.8 94.0 - [facility] 97.0 % [facility] COHB Art 0.4 % [facility] Comment: Nonsmokers: 0.5-1.5% COHB Smokers: Variable, but usually less than 10% Toxic: 20-30% COHB Lethal: Greater than 60% COHB METHB Art 0.3 <=1.5 % [facility] Na Whole Blood 135 135 - 145 mmol/L [facility] K Whole Blood 4.0 3.5 - 5.0 mmol/L [facility] Comment: Please note: Patients with WBC >100,000 may have falsely elevated Potassium levels. Contact the Clinical Chemistry L aboratory if there are any questions. ICa Whole Blood 1.11 (L) 1.15 - 1.33 mmol/L [facility] Comment: Note: ??Total bilirubin higher than 20 m g/dL may lead to falsely low ionized calcium. CL Whole Blood 105 98 - 107 mmol/L [facility] Gluc Whole Bld 141 65 - 199 mg/dL [facility] Comment: Diabetes: >=200 mg/dL plus symp toms. Lactate WB 5.0 (Critical) 0.5 - 2.2 mmol/L [facility] Comment: Noted by instrument assembly supervisor. Specimen Anatomical Collection Method Collection Time Receive d Time (Source) Location / / Volume Laterality Blood 01/23/2022 8:37 AM 2 8:37 EDT AM EDT Tex Robles MD CHEMISTRY ORDERABLES Performing Organization Address City/State/[place] [address] (ABNORMAL) BLOOD GAS 2 ARTERIAL (01/23/2022 7:59 AM EDT) Analysis Performed At Patho logist Time Signature pH Art 7.34 (L) 7.35 - [facility] 7.45 [facility] pCO2 Art 34 (L) 35 - 45 [facility] LABORATORY pO2 Art 105 (H) 85 - 104 [facility] LABORATORY HCO3 Art 18.1 (L) 20.0 - [facility] 26.0 [facility] mmol/[facility]AT[facility] BE Art -7.7 (L) -3.0 - 3.0 [facility] mmol/L [facility] Hgb Blood Gas 16.6 (H) 13.7 - [facility] 16.5 g/dL [facility] O2HB Art 97.0 94.0 - [facility] 97.0 % [facility] COHB Art 0.3 % [facility] Comment: Nonsmokers: 0.5-1.5% COHB Smokers: Variable, but usually less than 10% Toxic: 20-30% COHB Lethal: Greater than 60% COHB METHB Art 0.0 <=1.5 % [facility] Na Whole Blood 140 135 - 145 mmol/L [facility] K Whole Blood 4.5 3.5 - 5.0 mmol/L [facility] Comment: Please note: Patients with WBC >100,000 may have falsely elevated Potassium levels. Contact the Clinical Chemistry L aboratory if there are any questions. ICa Whole Blood 0.91 (Critical) 1.15 - 1.33 mmol/L [facility] Comment: Noted by instrument assembly supervisor. Note: ??Total bilirubin higher than 20 m g/dL may lead to falsely low ionized calcium. CL Whole Blood 103 98 - 107 mmol/L [facility] Gluc Whole Bld 179 65 - 199 mg/dL [facility] Comment: Diabetes: >=200 mg/dL plus symp toms. Lactate WB 4.4 (Critical) 0.5 - 2.2 mmol/L [facility] Comment: Noted by instrument assembly supervisor. Specimen Anatomical Collection Method Collection Time Receive d Time (Source) Location / / Volume Laterality Blood 01/23/2022 7:59 AM 7:59 EDT AM EDT Tex Robles MD CHEMISTRY ORDERABLES Performing Organization Address City/State/[place] [address] (ABNORMAL) POCT Glucose (01/23/2022 7:28 AM EDT) P athologist Signature POC Glucose 215 (H) 65 - 199 [facility] mg/dL [facility] Comment: Supplemental ranges: <140 mg/dL before meals <180 mg/dL all other times of the day Specimen Anatomical Collection Method Collection Time Receive d Time (Source) Location / / Volume Laterality Blood 01/23/2022 7:28 AM 7:28 EDT AM EDT Tex Robles MD POINT OF CARE TEST ORDERABLE S Performing Organization Address City/State/[place] [address] (ABNORMAL) Blood Gas Arterial ([facility]) (01/23/2022 7:21 AM EDT) Analysis Performed At Patho logist Time Signature pH Art 7.37 7.35 - [facility] 7.45 [facility] pCO2 Art 28 (L) 35 - 45 [facility] LABORATORY pO2 Art 96 85 - 104 [facility] LABORATORY HCO3 Art 15.7 (L) 20.0 - [facility] 26.0 [facility] mmol/[facility] BE Art -9.6 (L) -3.0 - 3.0 [facility] mmol/L [facility] Hgb Blood Gas 16.4 13.7 - [facility] 16.5 g/dL [facility] O2HB Art 96.6 94.0 - [facility] 97.0 % [facility] COHB Art 0.3 % [facility] Comment: Nonsmokers: ??0.5-1.5% COHB Smokers: ??Variable, but usually less th an 10% Toxic: 20 - 30% COHB Lethal: ??Greater than 60% COHB METHB Art 0.2 <=1.5 % [facility] Na Whole Blood 137 135 - 145 mmol/L [facility] K Whole Blood 4.4 3.5 - 5.0 mmol/L [facility] Comment: Please note: ??Patients with WBC >100,00 0 may have falsely elevated Potassium levels. ??Contact the Clinical Chemistry Laboratory if there are any questions. ICa Whole Blood 0.90 (Critical) 1.15 - 1.33 mmol/L [facility] Comment: Called by: sharmin, Read back by: willie webb, Date/Time:01/23/22 07:38. Note: ??Total bilirubin higher than 20 m g/dL may lead to falsely low ionized calcium. CL Whole Blood 105 98 - 107 mmol/L [facility] Gluc Whole Bld 203 (H) 65 - 199 mg/dL [facility] Comment: Diabetes: >=200 mg/dL plus symp toms. Lactate WB 5.5 (Critical) 0.5 - 2.2 mmol/L [facility] Comment: Called by: sharmin, Read back by: pramod alfaro, Date/Time:01/23/22 07:38. FIO2 Art 30 % [facility] PF Ratio Art 320 [facility] Specimen Anatomical Collection Method Collection Time Receive d Time (Source) Location / / Volume Laterality Blood Arterial Draw / 01/23/2022 7:21 AM 2021 7:28 Unknown EDT AM EDT Resulting Agency Comment Spec In Lab Cristina Hillman APRN CHEMISTRY ORDERABLES Performing Organization Address City/[facility]/ZIP [place] [address] (ABNORMAL) Phosphorus (01/23/2022 7:20 AM EDT) P athologist Signature Phosphorus 6.1 (H) 2.5 - 4.5 [facility] mg/dL [facility] Specimen Anatomical Collection Method Collection Time Receive d Time (Source) Location / / Volume Laterality Blood 01/23/2022 7:20 AM 7:27 EDT AM EDT Resulting Agency Comment Spec In Lab Angelina Reynoso MD CHEMISTRY ORDERABLES Performing Organization Address City/State/ZIP [place] [address] Magnesium (01/23/2022 7:20 AM EDT) P athologist Signature Magnesium 0.81 0.69 - 1.07 [facility] mmol/L [facility] Specimen Anatomical Collection Method Collection Time Receive d Time (Source) Location / / Volume Laterality Blood 01/23/2022 7:20 AM 2 7:27 EDT AM EDT Resulting Agency Comment Spec In Lab Angelina Reynoso MD CHEMISTRY ORDERABLES Performing Organization Address City/State/ZIP Code Phon e Number [address] (ABNORMAL) Creatinine (01/23/2022 7:20 AM EDT) Analysis Performed At Patho logist Time Signature Creatinine 3.84 (H) 0.80 - [facility] [place] 1.50 mg/dL [facility] Estimated GFR 21 (L) >=60 JOSH GILMORE mL/min/1.7 [facility] 3 ?? [facility] Comment: This patient's estimated [...] Organization Address City/State/ZIP Code Phon e Number [address] (ABNORMAL) Electrolytes panel (01/23/2022 7:20 AM EDT) athologist Signature Sodium 141 135 - 145 [facility] mmol/L [facility] Potassium 4.6 3.5 - 5.0 [facility] mmol/L [facility] Comment: result rechecked- Please note: ??Patients with WBC >100,00 0 may have falsely elevated Potassium levels. ??For accurate Potassium quantif ication in these patients send serum separator tube (gold top) for subsequent determinations. ??Contact the Clinical Chemistry Laboratory if there are any qu estions. Chloride 106 98 - 107 mmol/L [facility] CO2 14 (L) 22 - 31 mmol/L [facility] Anion Gap 21 (H) 5 - 15 mmol/L [facility] Specimen Anatomical Collection Method Collection Time Receive d Time (Source) Location / / Volume Laterality Blood 01/23/2022 7:20 AM 7:27 EDT AM EDT Resulting Agency Comment Spec In Lab Angelina Reynoso MD CHEMISTRY ORDERABLES Performing Organization Address City/State/[place] [address] XR Hand Min 3 [...] who have questions please contact the health career technical education teacher that requested your imaging first. ? Procedure [...] ho have questions please contact the health career technical education teacher that requested your imaging first. Tex Travis [...] who have questions please contact the health career technical education teacher that requested your imaging first. ? Narrative [...] iaphragm, the tip is not within the [id number]. Upper retrocardiac opacity corresponding to partial collapse [...] iaphragm, the tip is not within the [id number]. Upper retrocardiac opacity corresponding to partial collapse [...] ho have questions please contact the health career technical education teacher that requested your imaging first. Tex Travis [...] who have questions please contact the health career technical education teacher that requested your imaging first. ? Narrative 01/23/2022 7:14 AM EDT EXAMINATION: XR FOREARM LEFT (GENERIC) CLINICAL HISTORY: found down left forear m ??swelling TECHNIQUE: 2 views LEFT forearm COMPARISON: CT left forearm 01/23/2022 Procedure Note Rex dAdison MD - 01/23/2022 EXAMINATION: XR FOREARM LEFT [...] ho have questions please contact the health career technical education teacher that requested your imaging first. Tex Travis [...] yes Patient location at time of insertion: [address] Procedure Comments: Prior to dilation wire was visualized vi a ultrasound entering large, collapsible vessel in both transv erse and longitudinal planes. All ports had positive blood ret urn and were able to be flushed without difficulty. Cristina Hillman APRN Cristina Hillman APRN PROCEDURE/MINOR SURGICAL ORD ERABLES (ABNORMAL) Electrolytes panel (01/23/2022 6:00 AM EDT) athologist Signature Sodium 140 135 - 145 [facility] mmol/L [facility] Potassium 5.9 (H) 3.5 - 5.0 [facility] mmol/L [facility] Comment: Please note: ??Patients with WBC >100,00 0 may have falsely elevated Potassium levels. ??For accurate Potassium quantif ication in these patients send serum separator tube (gold top) for subsequent determinations. ??Contact the Clinical Chemistry Laboratory if there are any qu estions. Chloride 102 98 - 107 mmol/L [facility] CO2 15 (L) 22 - 31 mmol/L [facility] Anion Gap 23 (H) 5 - 15 mmol/L [facility] Specimen Anatomical Collection Method Collection Time Receive d Time (Source) Location / / Volume Laterality Blood 01/23/2022 6:00 AM 2 6:08 EDT AM EDT Resulting Agency Comment Spec In Lab Cristina Hillman APRN CHEMISTRY ORDERABLES Performing Organization Address City/State/[place] [address] (ABNORMAL) CK (01/23/2022 6:00 AM EDT) athologist Signature CK, Total 158,930 0 - 200 [facility] (H) unit/L [facility] Specimen Anatomical Collection Method Collection Time Receive d Time (Source) Location / / Volume Laterality Blood 01/23/2022 6:00 AM 2 6:08 EDT AM EDT Resulting Agency Comment Spec In Lab Gemma B Pentland INDUSTRIAL PAINTER CHEMISTRY ORDERABLES Performing Organization Address City/State/ZIP [place] [address] (ABNORMAL) Troponin (01/23/2022 6:00 AM EDT) P athologist Signature Troponin-T 0.35 (H) 0.00 - [facility] GILMORE 0.00 ng/mL [facility] Comment: The 99th percentile for Troponin T is le ss than 0.01 ng/mL, any detectable cTnT concentration using this assay should be considered elevated. According to the third universal definit ion of myocardial infarction the following criteria with a clinical prese ntation consistent with acute myocardial ischemia meets the diagnosis for a myocardial infarction ([place]). Detection of a rise and/or fall of [...] additional sample may be indicated. Reference: Third Caraway Definition of Myocardial Infarction. Journal of the [employer] 2012;60:[id number] Specimen Anatomical Collection Method Collection Time Receive d Time (Source) Location / / Volume Laterality Blood 01/23/2022 6:00 AM 2 6:08 EDT AM EDT Resulting Agency Comment Spec In Lab Gemma B Pentland INDUSTRIAL PAINTER CHEMISTRY ORDERABLES Performing Organization Address City/[facility]/ZIP [place] [address] Blood culture (01/23/2022 6:00 AM EDT) Patholo gist Method Time Signature Blood Culture No growth JOSH GILMORE at 5 days. [facility] Specimen Anatomical Collection Method Collection Time Receive d Time (Source) Location / / Volume Laterality Blood 01/23/2022 6:00 AM 2 6:18 EDT AM EDT Comment: unknown Resulting Agency Comment Spec In Lab Gemma B Alycialand INDUSTRIAL PAINTER MICROBIOLOGY - BLOOD ORDERAB LES Performing Organization Address City/[facility]/Z[place] [address] (ABNORMAL) POCT Glucose (01/23/2022 4:58 AM EDT) athologist Signature POC Glucose 205 (H) 65 - 199 [facility] Comment: Supplemental ranges: <140 mg/dL before meals <180 mg/dL all other times of the day Specimen Anatomical Collection Method Collection Time Receive d Time (Source) Location / / Volume Laterality Blood 01/23/2022 4:58 AM 2 4:58 EDT AM EDT Tex Robles MD POINT OF CARE TEST ORDERABLE S Performing Organization Address City/[facility]/ZIP [place] [address] Hepatitis B Surface Antibody (01/23/2022 4:49 AM EDT) P athologist Signature HepB Surface 418.0 IU/L [facility] Ab Quant [facility] Comment: HepB Surface Ab Quant: Unvaccinated: < 8.5 IU/L Vaccinated: > 11.5 IU/L HepB Surface Ab Positive [facility] Comment: Patient is considered to be immune to HB V infection. Expected Results: Vaccinated: Positive Unvaccinated: Negative Specimen Anatomical Collection Method Collection Time Receive d Time (Source) Location / / Volume Laterality Blood 01/23/2022 4:49 AM 2 4:56 EDT AM EDT Resulting Agency Comment Spec In Lab Gemma B Alycialand INDUSTRIAL PAINTER IMMUNOLOGY ORDERABLES Performing Organization Address City/[facility]/[place] [address] Hepatitis C Antibody (01/23/2022 4:49 AM EDT) Analysis Performed At Patho logist Time Signature Hepatitis C Ab Negative Negative [facility] Specimen Anatomical Collection Method Collection Time Receive d Time (Source) Location / / Volume Laterality Blood 01/23/2022 4:49 AM 2 4:56 EDT AM EDT Resulting Agency Comment Spec In Lab Gemma B Pentland INDUSTRIAL PAINTER IMMUNOLOGY ORDERABLES Performing Organization Address City/State/[place] [address] (ABNORMAL) Potassium (01/23/2022 4:49 AM EDT) P athologist Signature Potassium 6.6 3.5 - 5.0 [facility] (Critical) mmol/L [facility] Comment: Called by: kvng, Read back [...] Comment Spec In Lab Gemma B Pentland INDUSTRIAL PAINTER CHEMISTRY ORDERABLES Performing Organization Address City/State/[place] [address] (ABNORMAL) Hemogram (01/23/2022 4:49 AM EDT) Patholo gist Method Time Signature WBC 12.1 (H) 4.0 - 9.5 JOS[facility] VELASQUEZMANDO x10(3)/[facility] LABORATORY RBC 5.49 4.58 - JOSH MANDO 5.54 [facility] x10(6)/[facility] LABORATORY Hemoglobin 17.6 (H) 13.7 - JOSH MANDO 16.5 g/dL [facility] Hematocrit 50.3 (H) 40.5 - JOSH HAQUECK 48.5 % [facility] MCV 91.6 82.9 - JOSH HAQUECK 93.1 [facility] LABORATORY MCH 32.1 27.5 - [place]OSH [place] 32.1 pg [facility] MCHC 35.0 32.0 - JOSH GILMORE 35.7 g/dL [facility] Platelets 184 145 - 357 JOSH VELASQUEZMANDO x10(3)/[facility] LABORATORY RDWSD 41.9 36.0 - JOSH GILMORE 45.0 [facility] RDWCV 12.3 11.4 - JOSH GILMORE 13.8 % [facility] MPV 9.7 7.6 - 12.9 JOSH GILMORE [facility] LABORATORY nRBC % Auto 0.2 % [facility] nRBC Abs Auto 0.030 (H) 0.000 - JOSH GILMORE 0.000 [facility] x10(3)/[facility] LABORATORY Specimen Anatomical Collection Method Collection Time Receive d Time (Source) Location / / Volume Laterality Blood 01/23/2022 4:49 AM 4:56 EDT AM EDT Resulting Agency Comment Spec In Lab Cristina Hillman APRN HEMATOLOGY ORDERABLES Performing Organization Address City/State/[place] [address] Upper Extremity w [...] who have questions please contact the health career technical education teacher that requested your imaging first. ? Narrative [...] ho have questions please contact the health career technical education teacher that requested your imaging first. Cristina Hillman APRN IMG CT ORDERABLES CT Chest wo Contrast (Generic) (01/23/2022 3:58 AM EDT) Anatomical Region Laterality Modality Chest Computed Tomography Specimen (Source) Anatomical Collection Method Collection Time Re ceived Time Location / / Volume Laterality 01/23/2022 3:49 AM EDT Impressions 01/23/2022 4:39 AM EDT FINDINGS/IMPRESSION: Airways: Endotracheal tube tip 3.1 cm ab ove the maai. Lungs/Pleura: Partial collapse of the LL L [...] who have questions please contact the health career technical education teacher that requested your imaging first. ? Narrative 01/23/2022 4:39 AM EDT EXAMINATION: CT CHEST WO CONTRAST (GENERIC) CLINICAL HISTORY: Aspiration Hypoxia tho-bl-[id number] to XR imaging. Presenting with cardiac arrest s/p ROSC, unclear etiology. TECHNIQUE: Noncontrast CT chest. Absence of intravenous contrast renders suboptimal assessment of potential paren chymal and mediastinal masses as well as hilar lymphadenopathy, and blood vessels and cardiovascular structures. COMPARISON: None Procedure Note Rex Addison MD - 01/23/2022 EXAMINATION: CT CHEST WO CONTRAST (GENER IC) CLINICAL HISTORY: Aspiration Hypoxia ahu-zv-hhqwxfmpze to XR imaging. Presenting with cardiac arrest [...] ho have questions please contact the health career technical education teacher that requested your imaging first. [facility] CT Lower Extremity wo [...] who have questions please contact the health career technical education teacher that requested your imaging first. ? Narrative [...] ho have questions please contact the health career technical education teacher that requested your imaging first. Gemma B Pentland INDUSTRIAL PAINTER IMG CT ORDERABLES CT Head wo Contrast [...] who have questions please contact the health career technical education teacher that requested your imaging first. ? Narrative [...] ho have questions please contact the health career technical education teacher that requested your imaging first. Cristina Hillman [...] p lanned procedure. ?? Hand Hygiene: The ortho assistant did perform h and hygiene prior [...] form. Procedure Comments: N/A Gemma B Pentland INDUSTRIAL PAINTER PROCEDURE/MINOR SURGICAL ORD ERABLES XR Abdomen 1 [...] who have questions please contact the health career technical education teacher that requested your imaging first. ? Narrative [...] ho have questions please contact the health career technical education teacher that requested your imaging first. Cristina B Rafy INDUSTRIAL PAINTER IMG DX ORDERABLES XR Chest One View [...] who have questions please contact the health career technical education teacher that requested your imaging first. ? Narrative [...] body and tip not included in the uejyw-zd-njr w. No focal consolidation.No sizable pleura l [...] body and tip not included in the gachy-nl-xyo w. No focal consolidation.No sizable pleura l [...] ho have questions please contact the health career technical education teacher that requested your imaging first. Gemma B Pentland INDUSTRIAL PAINTER IMG DX ORDERABLES APTT (01/23/2022 1:55 AM EDT) P athologist Signature PTT 25 25 - 37 sec [facility] Comment: The PTT is NOT [...] Organization Address City/State/ZIP [place] [address] (ABNORMAL) Prothrombin Time (01/23/2022 1:55 AM EDT) P athologist Signature PT 14.4 (H) 9.4 - 12.5 [facility] LABORATORY INR 1.3 [facility] Comment: An [...] MD HEMATOLOGY ORDERABLES Performing Organization Address City/[facility]/ZIP [place] [address] Fibrinogen (01/23/2022 1:55 AM EDT) P athologist Signature Fibrinogen 349 200 - 393 [facility] mg/dL [facility] Comment: A fibrinogen level >100 mg/dL is adequat e for hemostasis in most patients without underlying bleeding disorders. Specimen Anatomical Collection Method Collection Time Receive d Time (Source) Location / / Volume Laterality Blood 01/23/2022 1:55 AM 2 1:59 EDT AM EDT Resulting Agency Comment Spec In Lab Tex Robles MD HEMATOLOGY ORDERABLES Performing Organization Address City/[facility]/ZIP [place] [address] (ABNORMAL) Rapid Drug Screen w/o Confirmation, Urine (01/23/2022 1:45 AM EDT) [facility] Method Time Signature U Barbiturates Presumptive None [facility] Screen Pos (A) Detected [facility] Comment: The barbiturate screen detects barbitura [...] Benzodiazepines Screen Presumptive Pos (A) None Detected [facility] Comment: The benzodiazepines screen detects [...] U Cocaine Screen None Detected None Detected [facility] Comment: The cocaine metabolites screen [...] other synthetic opioids are not detected by [facility] opiate screen. A ? Presumptive Positive? result indicates that the screening result was positive but has not yet been confirmed by a highly-specific method. As with any screen, occasional false positive re sults from cross-reacting substances may occur. Not for Medico-Legal Purposes. U Cannabinoid Screen None Detected None Detected Ren WEBB [facility] Comment: The marijuana metabolites screen detects the THC metabolite (90-xff-1-carboxy-delta 9-THC) at concen trations >20 ng/mL. A ? Presumptive Positive? result indicates that the screening result was positive but has not yet been confirmed by a highly-specific method. As with any screen, occasional false positive re sults from cross-reacting substances may occur. Not for Medico-Legal Purposes. U Oxycodone Screen Presumptive Pos (A) None Detected [facility] Comment: The oxycodone screen detects oxycodone a nd oxymorphone at concentrations >100 ng/mL. A ? Presumptive Positive? result indicates that the screening result was positive but has not yet been confirmed by a highly-specific method. As with any screen, occasional false positive re sults from cross-reacting substances may occur. Not for Medico-Legal Purposes. U Buprenorphine Screen None Detected None Detected [facility] Comment: The buprenorphine screen detects bupreno rphine at concentrations >5 ng/mL. A ? Presumptive Positive? result indicates that the screening result was positive but has not yet been confirmed by a highly-specific method. As with any screen, occasional false positive re sults from cross-reacting substances may occur. Not for Medico-Legal Purposes. U Fentanyl Screen Presumptive Pos (A) None Detected [facility] Comment: The fentanyl screen detects fentanyl at concentrations >2 ng/mL. A ? Presumptive Positive? result indicates that the screening result was positive but has not yet been confirmed by a highly-specific method. As with any screen, occasional false positive re sults from cross-reacting substances may occur. Not for Medico-Legal Purposes. U Tricyclics Screen None Detected None Detected [facility] Comment: The tricyclics screen detects [...] U Ethanol Screen None Detected None Detected [facility] Comment: This urine ethanol assay detect s ethanol at concentrations >/= 100 mg/L. U Amphetamines Screen None Detected None Detected [facility] Comment: The amphetamine screen detects [...] Screen None Detected None Detected Ren JON [facility] Comment: No adulteration or dilution of [...] Organization Address City/State/[place] [address] Rapid Drug Screen, Urine (MEGHNA Request) (01/23/2022 1:45 AM EDT) [facility] gist Method Time Signature MEGHNA Conf No [facility] LABORATORY MEGHNA Requested See Comment [facility] Comment: Refer to Rapid Drug Screen w/o Confirmation, Urine for results. Specimen Anatomical Collection Method Collection Time Receive d Time (Source) Location / / Volume Laterality Urine 01/23/2022 1:45 AM 2 1:52 EDT AM EDT Resulting Agency Comment Spec In Lab Cristina Hillman INDUSTRIAL PAINTER URINE ORDERABLES Performing Organization Address City/State/[place] [address] (ABNORMAL) _Urinalysis with microscopic (01/23/2022 1:30 AM EDT) [facility] Method Time Signature Glucose UA Negative Negative [facility] mg/dL [facility] Protein UA >=300 (A) Negative [facility] Bilirubin UA Moderate (A) Negative [facility] mg/dL [facility] Comment: Clinical correlation required for positi ve Urine Bilirubin results as false positive may occur with some drugs and d rug related products. If a false positive is suspected a serum total bili villaseñor should be considered if clinically indicated. Urobilinogen UA Normal Normal mg/dL [facility] pH UA 6.5 5.0 - 8.0 [facility] Blood UA Large (A) Negative mg/dL [facility] Ketones UA Trace (A) Negative mg/dL [facility] Nitrite UA Positive (A) Negative [facility] Leukocytes UA Negative Negative [facility] LABORATORY Appearance UA Cloudy (A) Clear [facility] Spec [place] UA >=1.030 (A) 1.006 - 1.030 [facility] Color UA Brown (A) [facility] RBC UA 2 0 - 3 /HPF [facility] Comment: Interpret with caution, manual microscopic results are from an unspun specimen. WBC UA <1 0 - 3 /HPF [facility] Comment: Interpret with caution, manual microscopic results are from an unspun specimen. Bacteria UA Many (A) None /HPF [facility] Comment: Interpret with caution, manual microscopic results are from an unspun specimen. Squam Epith UA 1 <=4 /HPF [facility] Comment: Interpret with caution, manual microscopic results are from an unspun specimen. Hyaline Cast UA <1 0 - 2 /LPF [facility] K [facility] Comment: Interpret with caution, manual microscopic results are from an unspun specimen. Amorph Mila UA Many (A) None /HPF [facility] Comment: Interpret with caution, manual microscopic results are from an unspun specimen. Specimen Anatomical Collection Method Collection Time Receive d Time (Source) Location / / Volume Laterality Urine 01/23/2022 1:30 AM 2 1:41 EDT AM EDT Resulting Agency Comment Spec In Lab Gemma B Pentland INDUSTRIAL PAINTER URINE ORDERABLES Performing Organization Address City/[facility]/ZIP [place] [address] Blood culture (01/23/2022 1:26 AM EDT) [facility] [email or web address] Method Time Signature Blood Culture No growth [facility] at 5 days. [facility] Specimen Anatomical Collection Method Collection Time Receive d Time (Source) Location / / Volume Laterality Blood 01/23/2022 1:26 AM 2 1:38 EDT AM EDT Comment: r wrist Resulting Agency Comment Spec In Lab Jaquelinma B Pentland INDUSTRIAL PAINTER MICROBIOLOGY - BLOOD ORDERAB LES Performing Organization Address City/[facility]/ZIP [place] [address] (ABNORMAL) BLOOD GAS 2 ARTERIAL (01/23/2022 1:25 AM EDT) [facility] [email or web address] Method Time Signature pH Art 7.32 (L) 7.35 - [facility] 7.45 [facility] pCO2 Art 33 (L) 35 - 45 [facility] mmHg [facility] pO2 Art 68 (L) 85 - 104 [facility] mmHg [facility] HCO3 Art 16.8 (L) 20.0 - [facility] 26.0 [facility] mmol/L [facility] BE Art -9.3 (L) -3.0 - 3.0 [facility] mmol/L [facility] Hgb Blood Gas 20.4 13.7 - [facility] (Critical) 16.5 g/dL [facility] Comment: Noted by instrument assembly supervisor. O2HB Art 92.4 (L) 94.0 - 97.0 % [facility] COHB Art 0.2 % [facility] Comment: Nonsmokers: 0.5-1.5% COHB Smokers: Variable, but usually less than 10% Toxic: 20-30% COHB Lethal: Greater than 60% COHB METHB Art 0.7 <=1.5 % [facility] Na Whole Blood 141 135 - 145 mmol/L [facility] K Whole Blood 5.3 (H) 3.5 - 5.0 mmol/L [facility] Comment: Please note: Patients with WBC >100,000 may have falsely elevated Potassium levels. Contact the Clinical Chemistry L aboratory if there are any questions. ICa Whole Blood 0.97 (L) 1.15 - 1.33 mmol/L [facility] Comment: Note: ??Total bilirubin higher than 20 m g/dL may lead to falsely low ionized calcium. CL Whole Blood 106 98 - 107 mmol/L [facility] Gluc Whole Bld 158 65 - 199 mg/dL [facility] Comment: Diabetes: >=200 mg/dL plus symp toms. Lactate WB 4.1 (Critical) 0.5 - 2.2 mmol/L [facility] Comment: Noted by instrument assembly supervisor. FIO2 Art 75 % [facility] PF Ratio Art 91 [facility] LABOR[facility]ORY Specimen Anatomical Collection Method Collection Time Receive d Time (Source) Location / / Volume Laterality Blood 01/23/2022 1:25 AM 2 1:25 EDT AM EDT Tex Robles MD CHEMISTRY ORDERABLES Performing Organization Address City/State/[place] [address] EKG 12 Lead (01/23/2022 12:46 AM EDT) Component Value Ref Range Test Analysis Performed Pathologis t Method Time At Signature Ventricular rate 147 BPM MUSE SYSTEM Atrial Rate 147 BPM MUSE SYSTEM P-R Interval 130 ms MUSE SYSTEM QRS Duration 84 ms MUSE SYSTEM Q-T Interval 268 ms MUSE SYSTEM QTC Calculated 419 ms MUSE SYSTEM (Bezet) Calculated P [place] 60 degrees MUSE SYSTEM Calculated R [place] 42 degrees MUSE SYSTEM Calculated T [place] 28 degrees MUSE SYSTEM INTERPRETATION Sinus tachycardia [...] EDT 12:39 PM EDT Gemma B Pentland INDUSTRIAL PAINTER ECG ORDERABLES Performing Organization Address City/State/ZIP Code Phon e Number MUSE SYSTEM T4, free (01/23/2022 12:45 AM EDT) P athologist Signature Free T4 1.19 0.93 - 1.70 [facility] ng/dL [facility] Comment: Reference Interval (ng/dL): Females: ??First Trimester: 0.97-1.68 ??Second Trimester: 0.77-1.51 ??Third Trimester: 0.77-1.49 Specimen Anatomical Collection Method Collection Time Receive d Time (Source) Location / / Volume Laterality Blood 01/23/2022 12:45 01/23/2022 1:13 AM EDT AM EDT Resulting Agency Comment Spec In Lab Gemma B Pentland INDUSTRIAL PAINTER CHEMISTRY ORDERABLES Performing Organization Address City/State/[place] [address] Triglyceride (01/23/2022 12:45 AM EDT) P athologist Signature Triglycerides 273 mg/dL [facility] Comment: Average Risk/Lower Risk: <150 mg/dL Borderline High Risk: 150-199 mg/dL High Risk: 200-499 mg/dL Very High Risk: >mi=521 mg/dL Specimen Anatomical Collection Method Collection Time Receive d Time (Source) Location / / Volume Laterality Blood Venous Draw / 01/23/2022 12:45 01/23/2022 1:13 Unknown AM EDT AM EDT Resulting Agency Comment Spec In Lab Cristina Hillman APRN CHEMISTRY ORDERABLES Performing Organization Address City/[facility]/ZIP Code Phon e Number [address] Type and Screen Validity (01/23/2022 12:45 AM EDT) [facility] Method Time Signature T&S only valid [facility] at [facility] Comment: This Type and Screen result is only valid at the [facility] Specimen Anatomical Collection Method Collection Time Receive d Time (Source) Location / / Volume Laterality Blood 01/23/2022 12:45 01/23/2022 AM EDT 12:51 AM EDT Resulting Agency Comment Spec In Lab Cristina Hillman APRN BLOOD BANK ORDERABLES Performing Organization Address City/[facility]/ZIP Code Phon e Number [address] Scan, Peripheral Blood (01/23/2022 12:45 AM EDT) athologist Signature Plat Estimate Normal [facility] RBC Morphology Normal [facility] Specimen Anatomical Collection Method Collection Time Receive d Time (Source) Location / / Volume Laterality Blood 01/23/2022 12:45 01/23/2022 1:08 AM EDT AM EDT Resulting Agency Comment Spec In Lab Cristina [facility] INDUSTRIAL PAINTER HEMATOLOGY ORDERABLES Performing Organization Address City/[facility]/ZIP [place] [address] (ABNORMAL) Differential, Automated (01/23/2022 12:45 AM EDT) [facility] Method Time Signature Neutrophils % 71.4 % [facility] Neutr Abs (ANC) 16.11 (H) 1.70 - [facility] 6.10 [facility] x10(3)/[facility] LABORATORY Lymphocytes % 17.4 % [facility]ORY Lymphocytes Abs 3.9 (H) 0.9 - 3.2 [facility] x10(3)/[facility] LABORATORY Monocytes % 9.3 % [facility]ORY Monocyte Abs 2.1 (H) 0.3 - 0.9 [facility] x10(3)/[facility] LABORATORY Eosinophils % 0.0 % [facility]ORY Eosinophils Abs 0.0 0.0 - 0.4 [facility] x10(3)/[facility] LABORATORY Basophils % 0.5 % [facility] Basophils Abs 0.1 0.0 - 0.1 [facility] x10(3)/[facility] LABORATORY Immature Gran % 1.40 % [facility] Comment: Immature granulocytes(IG's)percentage an d absolute count will include metamyelocytes, myelocytes, and promyelo cytes. Blood smears from CBCs yielding IG's will be scanned manually for concor dance. If this scan disagrees with the automated IG or if promyelocytes are not ed, a manual differential will be performed. Gemini Gran Abs 0.31 (H) 0.00 - 0.04 x10(3)/[facility] LABORATORY Specimen Anatomical Collection Method Collection Time Receive d Time (Source) Location / / Volume Laterality Blood 01/23/2022 12:45 01/23/2022 1:08 AM EDT AM EDT Resulting Agency Comment Spec In Lab Cristina Hillman APRN HEMATOLOGY ORDERABLES Performing Organization Address City/State/[place] [address] (ABNORMAL) Hemogram (01/23/2022 12:45 AM EDT) P athologist Signature WBC 22.6 (H) 4.0 - 9.5 [facility] x10(3)/[facility] LABORATORY RBC 6.64 (H) 4.58 - [facility] 5.54 [facility] x10(6)/[facility] LABORATORY Hemoglobin 21.5 13.7 - [facility] (Critical) 16.5 g/dL [facility] LABORATORY Comment: Called by: HERMAN, Read back by: Halley Hoyt, Date/Time:01/23/22 01:33. Corrected from 21.5 g/dL [CRIT] on 01/23 1:33:32 EDT by Shelli Sauceda Hematocrit 63.2 (H) 40.5 - 48.5 % [facility] LABORATORY MCV 95.2 (H) 82.9 - 93.1 fL [facility] LABORATORY MCH 32.4 (H) 27.5 - 32.1 pg [facility] LABORATORY MCHC 34.0 32.0 - 35.7 g/dL [facility] LABORATORY Platelets 269 145 - 357 x10(3)/[facility] LABORATORY RDWSD 43.9 36.0 - 45.0 fL [facility] LABORATORY RDWCV 12.3 11.4 - 13.8 % [facility] LABORATORY MPV 9.7 7.6 - 12.9 fL [facility] LABORATORY nRBC % Auto 0.3 % [facility] LABORATORY nRBC Abs Auto 0.060 (H) 0.000 - 0.000 x10(3)/[facility] LABORATORY Specimen Anatomical Collection Method Collection Time Receive d Time (Source) Location / / Volume Laterality Blood 01/23/2022 12:45 01/23/2022 1:08 AM EDT AM EDT Resulting Agency Comment Spec In Lab Gemma B Pentland INDUSTRIAL PAINTER HEMATOLOGY ORDERABLES Performing Organization Address City/[facility]/ZIP [place] [address] ABORH Recheck Status (01/23/2022 12:45 AM EDT) [facility] gist Method Time Signature ABORH Recheck Order Placed [facility] LABORATORY ABORH Type Complete [facility] LABORATORY Specimen Anatomical Collection Method Collection Time Receive d Time (Source) Location / / Volume Laterality Blood 01/23/2022 12:45 01/23/2022 AM EDT 12:51 AM EDT Resulting Agency Comment Spec In Lab Gemma B Pentland INDUSTRIAL PAINTER BLOOD BANK ORDERABLES Performing Organization Address City/[facility]/ZIP [place] [address] Antibody screen (01/23/2022 12:45 AM EDT) Patholo gist Method Time Signature Ab Screen Negative [facility] LABORATORY Expires at 01/26/2022 [facility] [id number] on: [facility] LABORATORY Specimen Anatomical Collection Method Collection Time Receive d Time (Source) Location / / Volume Laterality Blood 01/23/2022 12:45 01/23/2022 AM EDT 12:51 AM EDT Resulting Agency Comment Spec In Lab Gemma B Pentland INDUSTRIAL PAINTER BLOOD BANK ORDERABLES Performing Organization Address City/State/ZIP Code Phon e Number [address] ABO/Rh Typing (01/23/2022 12:45 AM EDT) P athologist Signature ABORh Type A Pos [facility] LABORATORY Specimen Anatomical Collection Method Collection Time Receive d Time (Source) Location / / Volume Laterality Blood 01/23/2022 12:45 01/23/2022 AM EDT 12:51 AM EDT Resulting Agency Comment Spec In Lab Gemma B Pentland INDUSTRIAL PAINTER BLOOD BANK ORDERABLES Performing Organization Address City/State/ZIP [place] [address] (ABNORMAL) Basic Metabolic Panel (non-fasting) (01/23/2022 12:45 AM EDT) P athologist Signature Glucose Lvl 143 65 - 199 [facility] mg/dL [facility] LABORATORY Comment: Diabetes: >=200 mg/dL plus symp toms BUN 47 (H) 10 - 20 mg/dL [facility] LABORATORY Creatinine 4.42 (H) 0.80 - 1.50 mg/dL [facility] LABORATORY Sodium 142 135 - 145 mmol/L [facility] LABORATORY Potassium 7.6 (Critical) 3.5 - [...] estions. Chloride 102 98 - 107 mmol/L [facility] LABORATORY CO2 17 (L) 22 - 31 mmol/L [facility] LABORATORY Anion Gap 23 (H) 5 - 15 mmol/L [facility] LABORATORY Calcium 5.8 (Critical) 8.5 - 10.5 mg/dL [facility] LABORATORY Comment: Called by: kvng, Read back by: manny ruiz, Date/Time:01/23/22 02:03_. Estimated GFR 17 (L) >=60 mL/min/1.73 m?? [facility] LABORATORY Comment: This patient's estimated [...] Organization Address City/State/[place] [address] (ABNORMAL) Phosphorus (01/23/2022 12:45 AM EDT) P athologist Signature Phosphorus 10.0 2.5 - 4.5 [facility] (Critical) mg/dL [facility] LABORATORY Comment: Called by: kvng, Read back by: manny ruiz, Date/Time:01/23/22 02:03_. Specimen Anatomical Collection Method Collection Time Receive d Time (Source) Location / / Volume Laterality Blood 01/23/2022 12:45 01/23/2022 1:08 AM EDT AM EDT Resulting Agency Comment Spec In Lab Gela Novak MD CHEMISTRY ORDERABLES Performing Organization Address City/[facility]/ZIP [place] [address] (ABNORMAL) Magnesium (01/23/2022 12:45 AM EDT) athologist Signature Magnesium 1.08 (H) 0.69 - 1.07 [facility] mmol/L [facility] LABORATORY Specimen Anatomical Collection Method Collection Time Receive d Time (Source) Location / / Volume Laterality Blood 01/23/2022 12:45 01/23/2022 1:08 AM EDT AM EDT Resulting Agency Comment Spec In Lab Gela Novak MD CHEMISTRY ORDERABLES Performing Organization Address City/[facility]/ZIP [place] [address] (ABNORMAL) TSH [place] (01/23/2022 12:45 AM EDT) athologist Signature TSH 7.69 (H) 0.27 - 4.20 [facility] mcIU/mL [facility] LABORATORY Comment: Reference Interval (mcIU/mL): Females: ??First Trimester: 0.23-3.88 ??Second Trimester: 0.22-3.90 ??Third Trimester: 0.44-4.66 Specimen Anatomical Collection Method Collection Time Receive d Time (Source) Location / / Volume Laterality Blood 01/23/2022 12:45 01/23/2022 1:08 AM EDT AM EDT Resulting Agency Comment Spec In Lab Cristina Hillman APRN CHEMISTRY ORDERABLES Performing Organization Address City/[facility]/ZIP [place] [address] (ABNORMAL) CK (01/23/2022 12:45 AM EDT) athologist Signature CK, Total >[id number] 0 - 200 [facility] MANDO (H) unit/L [facility] LABORATORY Specimen Anatomical Collection Method Collection Time Receive d Time (Source) Location / / Volume Laterality Blood 01/23/2022 12:45 01/23/2022 1:08 AM EDT AM EDT Resulting Agency Comment Spec In Lab Gemma B Pentland INDUSTRIAL PAINTER CHEMISTRY ORDERABLES Performing Organization Address City/State/ZIP Code [place] [address] (ABNORMAL) Troponin (01/23/2022 12:45 AM EDT) athologist Signature Troponin-T 0.43 (H) 0.00 - [facility] [place] 0.00 ng/mL [facility] LABORATORY Comment: The 99th percentile for Troponin T is le ss than 0.01 ng/mL, any detectable cTnT concentration using this assay should be considered elevated. According to the third universal definit ion of myocardial infarction the following criteria with a clinical prese ntation consistent with acute myocardial ischemia meets the diagnosis for a myocardial infarction ([place]). Detection of a rise and/or fall of [...] additional sample may be indicated. Reference: Third [place] Definition of Myocardial Infarction. Journal of the [place] College [employer] 2012;60:1581-98 Specimen Anatomical Collection Method Collection Time Receive d Time (Source) Location / / Volume Laterality Blood 01/23/2022 12:45 01/23/2022 1:08 AM EDT AM EDT Resulting Agency Comment Spec In Lab Gemma B Pentland INDUSTRIAL PAINTER CHEMISTRY ORDERABLES Performing Organization Address City/State/ZIP Code Phon e Number [facility] MAND[facility] [address] (ABNORMAL) Hepatic Function Panel (01/23/2022 12:45 AM EDT) Analysis Performed At Patho logist Time Signature Total Protein 5.9 (L) 6.1 - 8.0 [facility] Albumin 3.1 (L) 3.2 - 5.2 [facility] g/[facility] LAB[facility] AST >700 (H) 0 - 39 [facility] MANDO unit/L [facility] LABORATORY ALT >700 (H) 0 - 55 [facility] MANDO unit/L [facility] LABORATORY Alk Phos 71 40 - 130 [facility]/L [facility] LABORAT[facility] Total 0.4 0.2 - 1.3 [facility] Bilirubin mg/dL [facility] LABORATORY Bili, Direct 0.2 0.0 - 0.3 [facility] MANDO mg/dL [facility] LABORATORY Specimen Anatomical Collection Method Collection Time Receive d Time (Source) Location / / Volume Laterality Blood 01/23/2022 12:45 01/23/2022 1:08 AM EDT AM EDT Resulting Agency Comment Spec In Lab Cristina Hillman INDUSTRIAL PAINTER CHEMISTRY ORDERABLES Performing Organization Address City/State/ZIP Code Phon e Number [address] Fibrinogen (01/23/2022 12:45 AM EDT) P athologist Signature Fibrinogen Disregard 200 - 393 [facility] LABORATORY Comment: A fibrinogen level >100 [...] Comment Spec In Lab Jaquelinma B Pentland INDUSTRIAL PAINTER HEMATOLOGY ORDERABLES Performing Organization Address City/[facility]/Z[place] [address] APTT (01/23/2022 12:45 AM EDT) P athologist Signature PTT Disregard 25 - 37 [facility] LABORATORY Comment: The PTT is NOT [...] Agency Comment Spec In Lab [facility]quelinma B [facility] INDUSTRIAL PAINTER HEMATOLOGY ORDERABLES Performing Organization Address City/[facility]/ZIP [place] [address] Prothrombin Time (01/23/2022 12:45 AM EDT) P athologist Signature PT Disregard 9.4 - 12.5 [facility] LABORATORY Comment: Disregard results due to high hematocrit result interference Called by: antonella, Read back by: halley hoyt, Date/Time:01/23/22 01:39. Corrected from 12.7 sec [HI] on 01/23/22 1:39:53 EDT by Robson Booth INR Disregard [facility] LABORATORY Comment: An INR [...] Agency Comment Spec In Lab Cristina Hillman INDUSTRIAL PAINTER HEMATOLOGY ORDERABLES Performing Organization Address City/State/ZIP Code Phon e Number [address] POCT Glucose (01/23/2022 12:44 AM EDT) P athologist Signature POC Glucose 146 65 - 199 [facility] mg/dL [facility] LABORATORY Comment: Supplemental ranges: <140 mg/dL before meals <180 mg/dL all other times of the day Specimen Anatomical Collection Method Collection Time Receive d Time (Source) Location / / Volume Laterality Blood 01/23/2022 12:44 01/23/2022 AM EDT 12:44 AM EDT Tex Robles MD POINT OF CARE TEST ORDERABLE S Performing Organization Address City/State/ZIP [place] [address] MRSA PCR (01/23/2022 12:44 AM EDT) Patholo gist Method Time Signature MRSA Result Negative Negative [facility] LABORATORY MRSA Interp Negative for methicillin-resistant Staphylococcus aureus (MRSA) [facility] This test was performed using the GeneXpert?? Dx System an d the Xpert MRSA MEMORIAL Assay. The MRSA target DNA was not detec karina. The sample processing control and HOSPITAL probe check were valid. The performance of this test was determined by the [facility] Molecular Pathology Laboratory. It has been maximus red by the U.S. Food and Drug Administration for clinical use. Comment: [VERIFIED DATE]01.25.22 Verified By:Nora Shay (Electronic Signature) Specimen (Source) Anatomical Collection Method Collection Time Re ceived Time Location / / Volume Laterality Nasopharyngeal Swab 01/23/2022 12:44 06/11/2021 AM EDT 8:50 AM EDT Resulting Agency Comment Spec In Lab Cristina Hillman KATERYNA MICROBIOLOGY - GENERAL ORDER JT Performing Organization Address City/State/ZIP [place] [address] (ABNORMAL) COVID-19 PCR (01/23/2022 12:44 AM EDT) [facility] Method Time Signature SARS-CoV-2 Detected (A) Not Detected [facility] RNA [facility] LABORATORY Comment: This result should be interpreted [...] diagnosis of COVID-19 is performed using the [employer] m OG S-CoV-2 Assay as authorized by the FDA Emergency Use Authorization (EUA). This EUA assay is intended for In-vitro Diagnostic (IVD) use with respiratory sp ecimens such as nasopharyngeal swabs collected from individuals during the ac ewiiaapaayp phase of infection. This assay is performed based on the instructions for use provided by [employer] and additional guidance provided by CDC and FDA. Testing is performed in the Clinical Genomics and Advanced Technolog y Laboratory within the Department of Pathology and Laboratory Medicine at [facility], certified under the Clinical [...] required or requested by public health a [facility], positive specimens may be sent for additional [...] clinical management guidance information are available at [facility] Coronavirus Disease 2019 (COVID-19) webpage under Information fo r Healthcare Professionals (https://www.cdc.gov/coronavirus/2019-nc ov/hcp/index.html) Additional information about this and ot her EUA tests can be found in provider and patient fact sheets at the following FDA website: https://www.fda.gov/medical-devices/efvyybmgqfg-ctmtohg-4030-lhttz-93-sseqdtpmo- tyb-cojrgusnxuhyub-grllcje-devices/ivlxx-oprorwpozvt-cgzs SARS-Cov-2 RNA Source Trach Asp [facility] LABORATORY Specimen Anatomical Collection Method Collection Time Receive d Time (Source) Location / / Volume Laterality Tracheal 01/23/2022 12:44 01/23/2022 8:48 Aspirate AM EDT AM EDT Comment: Symptoms->COVID-19 Suspected Resulting Agency Comment Spec In Lab Cristina Hillman APRN MICROBIOLOGY - GENERAL ORDER JT Performing Organization Address City/State/[place] [address] documented in this encounter [...] 01/23/22 Precautions may be discontinued by the [facility] team after the required isolation period (10 or 20 days, depending on the clinical circumstances) when the patient is clinically improving and has be en afebrile for 24 hours without fever reducing medications. Estimated date patient will be eligible for precaution removal: 02/03/22 Please call [phone] with questions. Rule Out C. difficile 02/01/2022 [...] prior to 04/25/22 Please call Infection Prevention [phone] with questions. COVID-19Comment: Original COVID-19 test 01/23. Developed symptoms again 02/04/22 so extending isolation to 20 days. 02/04/2022 02/04/2022 02/09/20 1:57 PM EDT Eligible for precaution removal 02/13/22 History of COVID-19Comment: Retesting fo r COVID is not recommended unless infectious syndrome persists with no alternate explanation. 02/08/2022 02/08/2022 Positive test on 01/23/2022 Please do not retest prior to 04/25/2022 Please call Infection Prevention [phone] with questions. History of C. difficileComment: 03/19/2022 03/19/2022 Patient has met the 5 C's and is eligible to end soap and water contact precautions. Currently on PO vanc prophylacticly due to getting antibiotics for tx. documented as of this encounter Care Teams Extension Agent Relationship Specialty Start Date End Date None PCP - General 03/10/19 None documented as of this encounter
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
--- OUTSIDE RECORDS SUMMARY | 2022-04-21 11:45 | XMS_ITS | Encounter Summary ---
:1990 Author Organization [facility] [place] [address] Care Team Providers Name Role Phone None Primary Care Provider Unavailable Encounter Details Date Type Department Care Team Description 04/26/2021 Hospital Encounter [facility] at [facility] Saleem Milan MD [address] [place] [address] EMERGENCY MEDICINE [phone] [place], [place] [address] (Wo rk) Social History Tobacco Use Types Packs/Day Years Used Date Current Every Day Smoker Cigarettes 0.5 Alcohol Use Standard Drinks/Week Comments Yes 0 [...] Sig Dispensed Refills Start Date End Date EPINEPHrine 0.3 mg/0.3 mL Inject 0.3 mL IM 1 kit 0 04/02 Auto-Injector once as needed for allergic reaction (Throat tight, difficulty breathing). Call 911 as directed. triamcinolone (KENALOG) 0.1 Apply topically 3 60 mL 0 0 02/22/2019 % Lotion times daily. predniSONE (Deltasone) 20 Take 2 tablets by 2 tablet 0 03/23/2022 mg Tablet mouth daily. predniSONE (DELTASONE) 20 3 tabs qd x 3d, 2 20 tablet 0 04/28/2021 mg Tablet tabs qd x 3d, 1 tabs qd x 3d, 1/2 tab qd x 3d. Take the whole course of medication. hydroCHLOROthiazide 0 03/31/201803/23 (HYDRODIURIL) 25 mg Tablet lisinopril 0 04/28/2018 03/23/2022 (PRINIVIL;ZESTRIL) 10 mg Tablet documented as of this encounter Plan of Treatment Upcoming Encounters Date Type Specialty Care Team Description 06/09/2022 Procedure visit Neurology Summer Wiggins MD [facility] ER NEUROLOGY [place], [place] [address] (Wo rk) Scheduled Procedures Name Priority Associated Diagnoses Date/Time APPL SKIN SUB GRAFT HANDS, TO 100 SQ CM; Left ar m fasciotomy wound 1ST 25 SQ CM WOUND AREA (WRVU 1.83) documented as of this encounter Visit Diagnoses Not on filedocumented in this encounter Care Teams Roller Mill Operator Relationship Specialty Start Date End Date None PCP - General 03/10/19 None documented as of this encounter
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
--- OUTSIDE RECORDS SUMMARY | 2022-04-21 11:45 | XMS_ITS | Encounter Summary ---
:1990 Author Organization [facility] [place] [address] Care Team Providers Name Role Phone None Primary Care Provider Unavailable Reason for Visit Auth/Cert Specialty Diagnoses / Procedures Referred By Contact Refer red To Contact Diagnoses Angioedema angioedema Referral ID Status Reason Start Date Expiration Date Visits Requ ested Visits Authorized [id number] 1 1 Encounter Details Date Type Department Care Team Description 04/26/2021 - Hospital Encounter Intensive Care Unit Juan Sanz MD [facility] [place] [address] Chest pain, 04/28/2021 at Ludin Whitaker MD [facility] [place] [address] unspecified type [facility] Gaurang Rocha MD [facility] [place] [address] [place] [id number] Social History Tobacco Use Types Packs/Day Years [...] Sign Reading Time Taken Comments Blood Pressure 149/96 04/28/2021 10:00 AM EDT Pulse 78 04/28/2021 10:00 AM EDT Temperature 37 ??C (98.6 ??F) 04/28/2021 8:00 AM EDT Respiratory Rate 12 04/28/2021 10:00 AM EDT Oxygen Saturation 98% 04/28/2021 10:00 AM EDT Inhaled Oxygen Concentration - - Weight 98.1 kg (216 lb 4.3 oz) 04/28/2021 5:00 AM EDT Height 184 cm (6' 0.44) 04/26/2021 7:48 PM EDT Body Mass Index 28.98 04/26/2021 7:48 PM EDT documented in this encounter Discharge Summaries Gaurang Rocha MD - 04/28/2021 6:24 AM EDT Discharge Summary Patient Name: Eric Packer Patient Age: 30 y.o. Language: Bhutanese Race: White Ethnicity: Not nor Admit date: 04/26/2021 Discharge date and time: 04/28/21 11:41 AM Attending Physician: Gaurang Rocha MD Discharge Physician: Rosana Quevedo MD Follow-up Recommendations for Providers: - Follow-up on alpha-gal allergy and C1 complement labs - Patient is not vaccinated for COVID. Please encourage patient to get vaccinated for COVID - Out of concern and as a precaution, patient has been prescribed Epi-pen for any future allergies. - Patient was started on prednisone 40 mg once daily for angioedema for 3 days. He was sent home with one dose of 40 mg prednisone that he needs to take on 04/29/2021 Inpatient Provider Contact Information: For questions regarding this document or issues relating to this hospitalization on the Medical Service, please contact your inpatient physician through the [facility] [facility] [employer] . Issues after hours and on weekends will be handled by the Hospitalist staff on-call. Discharge Diagnoses (Hospital Problems): Angioedema Intubation for airway protection due to angioedema Operations/Major Procedures: none History of Presentation: Mr. Eric Packer is a 30 yo M with reported h/o polysubstance abuse including EtOH, uncertain which substances or when last used, HTN with prior rx for lisinopril though reported no use in past year, GERD, gastritis, and esophagitis, who was fiberoptically intubated for progressive oropharyngeal obie ma since this morning at [facility] concerning for angioedema and transferred to [facility] [place] further management. History of Present Illness(Limited due to mental status/attained per chart review): Pt reportedly woke up around 5:30 am this morning and had some pizza for breakfast around 7am. At 9 am, began to have a sensation of his throat swelling that continued to progressively worsen. He otherwise, had been in his normal state of health although was noted to have an pruritic rash on his rightarm for the past week that he attributed to poison daphnie. As noted above, although had a prescription for lisinopril, had not taken any of his medications in over a year. He had no prior similar episodesin the past and had no history of allergies. He denies any recent drug or alcohol use, but his sister reported that he appeared altered and his father reports that he had been using drugs, but unclear of which drugs or the amount although there was some mention of cocaine and his sister confirmed he had been using heroine. He had in the past been known to drink up to 30 beers a day during the weekend; unclear during the week but was a heavy daily user. He denied any recent infective or cardiopulmonary sx. No hx of recent trauma. Of note, he has not been COVID vaccinated. ?? In ED, facial and oropharyngeal swelling was notable on exam and worsened relatively quickly. Initially seemed more swollen on L oropharynx, then uvula enlarged. Ultimately fiberoptically intubated in the OR with 2 ml lidocaine, 30 mg ketamine, 200 mg of propofol, and midazolam at 2 mg infusion.. He was normotensive. Received solumedrol and benadryl but dosages are not documented. No imaging. Rash onR arm x 1 week thought to be poison daphnie, but no other rashes or urticaria noted.??At no point was hegiven epinephrine for unclear reason. ?? Upon transfer, he remained ventilated - VC with set volume of 550, RR 14, PEEP 5, FiO2 45% satting 99% with PIPs in the Low 20s. Upon arrival, plateau pressure was 15. Despite sedation, patient became intermittently and rapidly agitated requiring additional boluses of fentanyl for total of 350, 400 ofketamine, and remained on infusion of propofol at 80. ?? OSH Vitals: BMI 30.25; RR 20; BP 127/83; HR 63; Temp 97.3; Pain 0; satting well on RA ?? OSH labs prior to transfer: CBC - wbc 8.7; hgb 15.6; plt 211; Neutrophil % 56.2(cbc wnl); Eos 6.0(ULN 6.0) BMP - Na 138; K 3.5; HCO3 28.5; BUN 17; Cr 0.8; Ca 8.5(no lyte abnormalities; no renal dysfunction; mild met alkalosis) LFTs - TP 6.8; Alb 4.0; Tbili 0.5; ALP 52; ALT 33; AST 16(no liver dysfunction apparent) Ethyl < 3.0 RCRP - 4.31(ULN 3.00) ESR - 2 COVID negative Hospital Course: #Angioedema?? #Airway compromise 2/2 to laryngeal edema Patient presented to the ICU on the evening on 04/26 intubated on ventilator on volume control and on sedation. A CT neck soft tissue was performed which did not show any fluid collection or abscess. VBG showed pH of 7.34 with pCO2 of 47. All of his other labs were unremarkable. Initially the differentials considered were anaphylaxis, iatrogenic angioedema from medication , familial angioedema vs acquired with C1 inhibitor deficiency. He was started on prednisone 40 mg, with plan to continue for 3 days (ending 04/29). Given patient reportedly did not have any anaphylactic reaction, his presentationwas thought to be likely bradykinin-mediated angioedema and unlikely to be mast-cell mediated angioedema; however, his prednisone was continued given no concrete evidence f His C4 complement, tryptase,and CRP were all normal. 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 Lone star tick is generally found in [place] , but given all of the work-up had been negative, alpha-gal allergy test was sent. The patient improved significantly by the morning of 04/27. He passed his SBT with positive cuff leak. He was extubated in early afternoon of 04/27 and did not have any complications. He reported some globus sensation but had oxygen saturation in mid-high 90s on room air, and there was no concern for airway compromise.His globus sensation is likely secondary to the acute angioedema and intubation. As a precaution, patient was discharged with prescription of epipen. ?? #Alcohol Abuse #Polysubstance Abuse When patient presented to ICU, the day of his last drink was unknown. However, given his heavy alcohol and polysubstance use history, a UTox was ordered, which was positive for benzos and fentanyl. So after he was extubated, he was started on phenobarbital protocol for alcohol withdrawal and for possible withdrawal from the other substances. He did not have any signs and symptoms of withdrawal duringthe hospitalization. #HTN Patient has a history of HTN, but he was normotensice at presentation and on NSR on EKG. He was reportedly not taking any antihypertensives at home. He did not require any antihypertensive during the ICU stay. #GERD #Gastritis/Esophagitis Given history of GERD and also due to intubation, patient was started on famotidine. Vital Signs at Discharge: BP: (!) 149/96, Heart Rate: 78, Temp: 37 ??C (98.6 ??F), Resp: 12, BMI (Calculated): 29 Height: 184 cm (6' 0.44) (04/26/211947) Weight: 98.1 kg (216 lb 4.3 oz) (04/28/21499) Functional and Cognitive Status: Stable Important Studies and Lab Data: Labs: Recent Labs 04/28/2139904/27/2153904/26/211954 WBC 10.0* 11.2* 7.1 HGB 14.5 15.6 15.4 HCT 41.1 44.6 44.1 PLATELET 189 243 215 Recent Labs 04/28/2139904/27/21 0540 04/26/211954 NA 142 146* 140 K 3.5 3.8 3.8 CL 108* 110* 106 CO2 23 23 26 BUN 14 13 16 CREATININE 0.67* 0.66* 0.71* Recent Labs 04/26/211954 AST 19 ALT 28 ALKPHOS 53 BILITOT 0.3 Recent Labs 04/28/21 0400 04/27/21 0540 04/26/211954 CALCIUM 8.4* 9.1 9.4 PHOS -- -- 3.9 Recent Labs 04/26/211954 PT 11.7 INR 1.0 PTT 33 Recent Labs 04/26/211954 CK 75 Studies: Results for orders placed or performed during the hospital encounter of 04/26/21 XR Chest One View (Exam End: 04/26/2021 9:03 PM) Impression FINDINGS/IMPRESSION: AP chest: ET tube is present with its tip approximately 6.0 cm above the maia. Enteric tube is seen coursing through the esophagus with tip not included in the [id number]. Relatively low lung volumes with bibasilar atelectasis, particularly at the left lung base. Retrocardiac opacity is noted as well. These findings suggest combination of aspiration and atelectasis. There is mild pulmonary vascular congestion without interstitial edema. No sizable pleural effusion or pneumothorax. Normal cardiomediastinal silhouette accounting for the portable technique. No acute osseous abnormality. AP abdomen: Enteric tube is present with its tip in the GE junction and sidehole in the distal esophagus. Recommend at least 6 to 7 cm advancement. Thank you for letting us participate in the care of this patient. If you are a health care provider and have any questions regarding this report, please contact the number below. For patients who have questions please contact the health rn progressive care that requested your imaging first. Electronically signed by: Sona Haji MD, [facility] ([phone]), at 04/26/2021 9:10 PM XR Abdomen 1 view (Generic) (Exam End: 04/26/2021 9:03 PM) Impression FINDINGS/IMPRESSION: AP chest: ET tube is present with its tip approximately 6.0 cm above the maia. Enteric tube is seen coursing through the esophagus with tip not included in the [id number]. Relatively low lung volumes with bibasilar atelectasis, particularly at the left lung base. Retrocardiac opacity is noted as well. These findings suggest combination of aspiration and atelectasis. There is mild pulmonary vascular congestion without interstitial edema. No sizable pleural effusion or pneumothorax. Normal cardiomediastinal silhouette accounting for the portable technique. No acute osseous abnormality. AP abdomen: Enteric tube is present with its tip in the GE junction and sidehole in the distal esophagus. Recommend at least 6 to 7 cm advancement. Thank you for letting us participate in the care of this patient. If you are a health care provider and have any questions regarding this report, please contact the number below. For patients who have questions please contact the health rn progressive care that requested your imaging first. Electronically signed by: Sona Haji MD, [facility] ([phone]), at 04/26/2021 9:10 PM XR Abdomen 1 view (Generic) (Exam End: 04/26/2021 10:57 PM) Impression FINDINGS/IMPRESSION: Enteric tube is seen with its tip in the proximal gastric body and sidehole in the GE junction. Recommend further advancement. Thank you for letting us participate in the care of this patient. If you are a health care provider and have any questions regarding this report, please contact the number below. For patients who have questions please contact the health rn progressive care that requested your imaging first. Electronically signed by: Sona Haji MD, [facility] ([phone]), at 04/26/2021 11:[address] Neck Soft Tissue w Contrast (Generic) (Exam End: 04/27/2021 1:36 AM) Impression No fluid collection/abscess identified. Orogastric tube multi-coiled within the pharynx the upper esophagus, including focal kinking at some portions. Thank you for letting us participate in the care of this patient. If you are a health care provider and have any questions regarding this report, please contact the number below. For patients who have questions please contact the health rn progressive care that requested your imaging first. Electronically signed by: Rex Addison MD, [facility] ([phone]), at 04/27/2021 2:54 AM Pending Studies and Lab Data: - C1 esterase inhibitor, functional - C1 esterase inhibitor, antigen - C1q Complement - Alpha-gal allergy lab Discharge Conditions/Prognosis: Stable; at baseline Discharge to: Home Updated Allergies/ADRs: No Known Allergies Immunizations Given this Hospitalization: None Discharge Medications: Your Medications New Medications Dose Details EPINEPHrine 0.3 mg/0.3 mL Atin Inject 0.3 mL IM once as needed for allergic reaction (Throat tight, difficulty breathing). Call 911as directed. Quantity: 1 kit Refills: 0 Continued medications with new dosing Dose Details predniSONE 20 mg Tab Commonly known as: Deltasone Take 2 tablets by mouth daily. Start taking on: April 29, 2021 What changed: ?? how much to take ?? how to take this ?? when to take this ?? additional instructions 40 mg Quantity: 2 tablet Refills: 0 Continued medications, unchanged Dose Details hydroCHLOROthiazide 25 mg Tab Commonly known as: Hydrodiuril Refills: 0 lisinopriL 10 mg Tab Commonly known as: Zestril Refills: 0 triamcinolone 0.1 % Lotn Commonly known as: KENALOG Apply topically 3 times daily. Quantity: 60 mL Refills: 0 Smoking Status at Discharge: Social History Tobacco Use Smoking Status Current Every Day Smoker ??? Packs/day: 0.50 ??? Types: Cigarettes Smokeless Tobacco Never Used Instructions Given to Patient at Discharge: Patient Instructions Instructions on Discharge to Home Why you were hospitalized - You were hospitalized for throat swelling (angioedema) that required intubation. We are not entirely sure the etiology of this swelling. There are some labs still pending. Please give us a call in about a week for the results or have your primary care doctor follow these results. We will send you home with one more dose of prednisone to take tomorrow morning (04/29). We also are sending you with an epi pen. If you feel your throat is swelling again and it feels difficult to breathe, please call 911 and use your epipen. We also strongly recommend you get your COVID and Tdap vaccinations. You can get these at your local pharmacy. Call your doctor or seek medical attention if you develop the following - fever, chills, worsening weakness, chest pain, shortness of breath, cough, weakness in an arm or leg Activity level - no restrictions Diet - no change in previous diet Driving - as before hospitalization Shower/Bath - permitted Wound Care - none Home Oxygen therapy - none Follow-up: No future appointments. Your Inpatient Doctor: Gaurang Rocha MD Your PCP: None None For questions regarding this document or issues relating to this hospitalization on the Medical Service, please contact your inpatient physician through the [facility] [employer] . Issues after hours and on weekends will be handled by the MICU staff on-call. documented in this encounter Discharge Instructions Patient InstructionsAmish Ordaz MD - 04/28/2021 11:10 AM EDT Instructions on Discharge to Home Why you were hospitalized - You were hospitalized for throat swelling (angioedema) that required intubation. We are not entirely sure the etiology of this swelling. There are some labs still pending. Please give us a call in about a week for the results or have your primary care doctor follow these results. We will send you home with one more dose of prednisone to take tomorrow morning (04/29). We also are sending you with an epi pen. If you feel your throat is swelling again and it feels difficult to breathe, please call 911 and use your epipen. We also strongly recommend you get your COVID and Tdap vaccinations. You can get these at your local pharmacy. Call your doctor or seek medical attention if you develop the following - fever, chills, worsening weakness, chest pain, shortness of breath, cough, weakness in an arm or leg Activity level - no restrictions Diet - no change in previous diet Driving - as before hospitalization Shower/Bath - permitted Wound Care - none Home Oxygen therapy - none Follow-up: No future appointments. Your Inpatient Doctor: Gaurang Rocha MD Your PCP: None None For questions regarding this document or issues relating to this hospitalization on the Medical Service, please contact your inpatient physician through the [facility] . Issues after hours and on weekends will be handled by the MICU staff on-call. documented in this encounter Medications at Time [...] tablet 0 03/23/2022 mg Tablet mouth daily. hydroCHLOROthiazide 0 03/31/201803/23 (HYDRODIURIL) 25 mg Tablet lisinopril 0 04/28/2018 03/23/2022 (PRINIVIL;ZESTRIL) 10 mg Tablet documented as of this encounter Progress Notes Gaurang Rocha MD - 04/28/2021 10:20 AM EDT Attending Day of Discharge Documentation Discharge diagnosis Angioedema Intubation for airway protection due to angioedema The patient has been seen, examined and is ready for discharge. Plans ? D/c to home ? Will call w/ pending lab results ? Please see the Discharge Summary for complete details Agnieszka Fry RN - 04/28/2021 5:00 AM EDT Assumed care at 1900. Pt alert and oriented, activity slightly increased from normal, scheduled phenobarb given. On room air, NSR to ST, voiding in the urinal. PIVx2. Pt endorses looking forward to discharge home soon. Marie Jenkins RN - 04/27/2021 5:57 PM EDT OUTCOME EVALUATION NOTE: OUTCOME SUMMARY: Pt extubated around noon. Tolerating well on RA. No stridor or SOB noted. Pt A&O x4. Calm & cooperative. VSS. PLAN MOVING FORWARD: Continue to monitor for any changes in airway (swelling/numbess etc) Otherwise, downgrade. INDIVIDUALIZED FALL PREVENTION INTERVENTIONS: Patient-specific fall risk factors per assessment: [current deficits]: Lines, drains, cords, and generalized weakness. Assistance [level of assistance required for transfers and ambulation]: 2 Assist Supervision [direct monitoring required during toileting and ADLs]: Alarms active, audible and set appropriately Surveillance [continuous indirect monitoring]: Alejandro'sharon CC monitor Patient-specific fall prevention interventions for sensory deficits provided, if applicable: [X] No CPG GOAL OUTCOME EVALUATION: Batsheva Nicholas RT - 04/27/2021 3:44 PM EDT Summary Admitted on: 04/26/2021 LOS: 1 days IBW: 77 kg CODE STATUS: FULL HPI: The encounter diagnosis was Chest pain, unspecified type. PMHx: has a past medical history of Mandible fracture (04/26/2013). Tobacco Hx: reports that he has been smoking cigarettes. He has been smoking about 0.50 packs per day. He does not have any smokeless tobacco history on file. Respiratory Data Protocol: AMV SBT: Yes SPO2 Goal: Saturation Goal: > 92% Vent Settings: Ventilator Mode: (S) PS/CPAP (as per protocol) PEEP Set: 5 FiO2: (S) 25 % (as per sats) Ventilator Measurements: Resp: 13 Vt Exhaled: 593 PIP: 11 MAP: 7 MVe: 8.2 PEEP: 5 cmH20 SpO2: 96 % EtCO2: 40 mmHg Airway: 7.0 @ 23 cm at the Teeth. Skin Integrity: WDL Inhaled Medications: None Lung Sounds: Clear Secretions: None noted. Events Patient received at the start of this shift on VCV 630/5, X10; Patient was transitioned to CPAP+5 during the morning assessment and has tolerated well. He has a ++cuff leak at 5cm H2O. During rounds team decided to 'take a look at angioedema prior to extubating. During this process patient came fully upright in bed and decision to extubate over #14 Cook catheter was made. Patient continued to complain of really sore throat. Patient has good air movement and did not exhibit any signs of stridor. Catheter was secured in place for about 20 minutes prior to removing. Patient remains on Oxygen Settings: Interface: None (Room air) pO2 Goal: SpO2 >92% HR: Heart Rate: [64-97] RR: Resp: [8-26] SpO2: SpO2: [96 %-98 %] Lanette Cotter PA - 04/27/2021 12:14 PM EDT ENT was contacted regarding extubation recommendation. Recommended extubate per RT protocol and if clinically appropriate. Primary team can reach out post extubation if any further questions or concerns arise. Gaurang Rocha MD - 04/27/2021 10:25 AM EDT Critical Care Medicine Staff Progress Note 30 y.o. male with the following active issues: Angioedema Intubation for airway protection due to angioedema 24 hr events/subjective: No hemodynamic compromise. Passed SBT this morning. PE Vent settings: PSV PS-5 PEEP-5 FiO2-30% Gen: Intubated and sedated young, robust-appearing male CVS: RRR Lungs: CTA anteriorly Abd: +BS, soft, nondistended Ext: No LE edema Neuro: Sedated, +reactive pupils Labs C4 level nl C1 esterase inhibitor pending CRP low Studies CT of neck neg for abscess or acute pathology ASSESSMENT, MANAGEMENT, and DECISION MAKING: This 30 yo male w/ polysubstance abuse and EtOH abuse was admitted last night from [facility] w/ angioedemaof unclear etiology. He is intubated for airway protection w/ minimal vent settings. As he had a cuff leak, he is being extubated this morning over a tube exchanger. He may have EtOH and other substance withdrawal. While he has been prescribed lisinopril, he reportedly hasn't taken it for months. His presentation seems less consistent w/ anaphylaxis and he didn't have significant wheezing or any hemodynamic compromise. 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 Mammalian meat allergy is possible and will test for it. On CIWA and low threshold to restart Precedex and use phenobarb for possible withdrawal. Continue Pepcid and prednisone for now. Follow-up testing for angioedema IS PATIENT CRITICALLY ILL ? Is there a high potential of sudden, clinically significant, or life threatening deterioration? Yes Is there a need for direct personal assessment and management to treat/prevent multiple vital organfailure/deterioration? Yes If this patient is not critically ill, the reason for continued hospitalization is [] PATIENT IS CRITICALLY ILL WITH THESE DIAGNOSES BEING MANAGED BY [facility] TEAM: Angioedema Intubation for airway protection due to angioedema I personally performed 45 minutes of aggregate critical care time exclusive of procedures and teaching. This includes time during direct patient evaluation and reassessment, interpreting labs and studies, directing life and/or organ supporting organ interventions, and documentation on the unit. Rosana Quevedo MD - 04/27/2021 6:26 AM EDT ICU Blue (#3510) Progress Note Patient info: Name: Eric Packer : 1990 PCP: None PCP phone number: None Date of Admission: 04/26/2021 ( Hospital Day 1 day ) Attending:Gaurang Rocha MD ID: Eric Packer is a 30 y.o. male w/ PMH of polysubstance abuse including EtOH, uncertain which substances or when last used, HTN with prior rx for lisinopril though reported no use in past year, GERD, gastritis, and esophagitis on HD# 1 who was fiberoptically intubated for progressive oropharyngeal edema on the morning of 04/27 at [facility] concerning for angioedema and transferred to [facility] for further management. 24 Hour Events/Subjective: Yesterday: - Admitted Overnight: - CT of neck performed overnight This AM: - Stable; no acute events Vasoactive & Sedating Medications: Infusions: Continuous Infusions: ??? fentaNYL 200 mcg/hr (04/27/21 1000) ??? midazolam Stopped (04/26/212044) ??? propofoL 50 mcg/kg/min (04/27/21832) ??? dexmedetomidine 0.4 mcg/kg/hr (04/27/21 06) Ventilator Settings: Mode: Servo U Ventilator Mode: (S) PS/CPAP (as per protocol), PS 0 over 5, FiO2 0.25 MV 11 SET RR: TV: PEEP: FiO2: VARIABLES Tidal Volume Set: 630 Set PEEP (cm H2O): 5 Set FiO2: (S) 25 % (as per sats) PATIENT RR: PIP: Pplateau: SpO2: OUTPUT Resp: 10 Peak Inspiratory Pressure: 11 Plateau Pressure (cm H2O): 15 SpO2: 97 % ABG (Arterial Blood Gas) Recent Labs 04/26/211952 LACTATEVEN 1.6 VBG (Venous Blood Gas) Recent Labs 04/26/211952 PHVEN 7.34 [id number] 47 PO2VEN 77* FQS4CZE 25.1 LACTATEVEN 1.6 Mixed Venous Sat No results for input(s): [id number] in the last 168 hours. Objective: Vitals Last value Range last 24 hrs Temperature Temp: 36.3 ??C (97.3 ??F) Temp: [36.3 ??C (97.3 ??F)-36.7 ??C (98.1 ??F)] Heart Rate Heart Rate: 65 Heart Rate: [55-97] Blood Pressure BP: 134/85 BP: (114-140)/(77-99) Art Line BP BP (Arterial Line): -- MAP (NBP): [91 mmHg-111 mmHg] Respiratory Rate Resp: 10 Resp: [-26] SpO2 SpO2: 97 % SpO2: [96 %-98 %] Oxygen Delivery Oxygen Therapy O2 Device: Ventilator FiO2 (%): 25 % Intake/Output Summary (Last 24 hours) at 04/27/2021 1028 Last data filed at 04/27/2021 1000 Gross per 24 hour Intake 901.37 ml Output 4655 ml Net -3753.63 ml Patient Vitals for the past 168 hrs: Weight 04/26/211947 98.2 kg (216 lb 7.9 oz) Admit wt: 98.2 kg Physical Exam: General: Intubated and sedated young male Head: NCAT; No gross swelling of the face Eyes: pupils constrict, sluggishly reactive, no scleral icterus Oropharynx: MMM, considerable edema of the left tongue, difficult to visualize posterior pharynx; nogross swelling of the buccal mucosa; ETT and OGT in place Lungs: CTAB Heart: RRR w/o M/R/G/C Abdomen: Soft, NT/ND, NABS : Ayala in place Extremities: 1+ edema to BLE; 2+ DP pulses; extremities are warm and well perfused; good capillary refill Neuro: Sedated Skin: Scattered minor lacerations concerning for all 4 extremities concerning for injection sites ; mild non-erthymatous raised vesicular lesions on extensor surface of right forearm that appear to be healing without bleeding or discharge ?? Lines/Drains/Airways Lines: Peripheral IV Line - Single Lumen 04/26/211929 median cubital vein (antecubital fossa), right 18 gauge (Active) Indication/Daily Review of Necessity fluid therapy continuous;medication therapy continuous Site Preparation/Maintenance dressing: dry and intact 04/26/211944 Securement catheter stabilization device, secured with 04/26/211944 Patency/Maintenance flushed without difficulty;blood return, able to obtain;infusing 04/26/211944 Phlebitis 0-->no symptoms 04/27/21399 Infiltration 0-->no symptoms 04/27/21399 Site Signs/Symptoms no redness;no swelling;no warmth;no pain;no palpable cord;no streak formation;nodrainage 04/26/211944 Peripheral IV Line - Single Lumen 04/26/211929 cephalic vein (lateral side of arm), left 18 gauge (Active) Indication/Daily Review of Necessity fluid therapy intermittent;medication therapy intermittent 04/26/211944 Site Preparation/Maintenance dressing: dry and intact 04/26/211944 Securement catheter stabilization device, secured with 04/26/211944 Patency/Maintenance flushed without difficulty;blood return, able to obtain;alcohol impregnated cap applied 04/26/211944 Phlebitis 0-->no symptoms 04/27/21399 Infiltration 0-->no symptoms 04/27/21399 Site Signs/Symptoms no redness;no swelling;no warmth;no pain;no palpable cord;no streak formation;nodrainage 04/26/211944 Labs: Recent Labs 04/27/2153904/26/211954 WBC 11.2* 7.1 HGB 15.6 15.4 HCT 44.6 44.1 PLATELET 243 215 MCV 91.2 91.1 Recent Labs 04/27/2153926/21 1955 NA 146* 140 CL 110* 106 CO2 23 26 K 3.8 3.8 MAGNESIUM -- 1.00 PHOS -- 3.9 CALCIUM 9.1 9.4 BUN 13 16 CREATININE 0.66* 0.71* LFTs Recent Labs 04/26/211954 PROT 6.4 ALBUMIN 4.2 AST 19 ALT 28 ALKPHOS 53 BILITOT 0.3 Coags Recent Labs 04/26/211954 INR 1.0 PT 11.7 PTT 33 Cardiac Enzymes Recent Labs 04/26/211954 CK 75 Endocrine Recent Labs 04/26/212139 TSH 0.57 Recent Labs 04/27/21 0752 04/26/211953 POCGLU 120 143 Rheum Ref. Range 04/26/2021 04/26/2021 C4 Comp 10 - 40 mg/dL 24 CRP <=4.9 mg/L <3.0 UTox 04/26/2021 U Barbiturates Screen None Detected U Benzodiazepines Screen Presumptive Pos (A) U Cocaine Screen None Detected U Methadone Metabolites Screen None Detected U Opiate Screen None Detected U Cannabinoid Screen None Detected U Oxycodone Screen None Detected U Buprenorphine Screen None Detected U Fentanyl Screen Presumptive Pos (A) U Tricyclics Screen None Detected U Ethanol Screen None Detected U Amphetamines Screen None Detected U Adulterants Screen None Detected Heme No results for input(s): LDH, HAPTOGLOBIN, URICACID in the last 168 hours. ABG (Arterial Blood Gas) Recent Labs 04/26/211952 LACTATEVEN 1.6 VBG (Venous Blood Gas) Recent Labs 04/26/211952 PHVEN 7.34 [id number] 47 PO2VEN 77* HPZ2GKI 25.1 LACTATEVEN 1.6 Mixed Venous Sat No results for input(s): A3GXDW2 in the last 168 hours. Microbiology: Microbiology Results (Last 30 days) Procedure Component Value Units Date/Time COVID-19 PCR [[id number]] Collected: 04/26/212339 Lab Status: Final result Specimen: Nasopharyngeal Swab Updated: 04/27/21207 SARS-CoV-2 RNA PCR Not Detected Comment: This result should be interpreted in combination with the clinical observations, patient history and epidemiological information. For testing of asymptomatic individuals, assay performance characteristics and clinical utility have not been evaluated. Testing for SARS-CoV-2 (Severe acute respiratory syndrome coronavirus 2, formerly known as 2019 novel coronavirus or 2019-nCoV) to aid in the diagnosis of COVID-19 is performed using the Simplexa COVID-19 Direct Assay by [employer] as authorized by the FDA issued Emergency Use Authorization (EUA). This assay is intended for In-vitro Diagnostic (IVD) use with nasopharyngeal swabs collected from individuals meeting the CDC criteria for testing. The assay is performed based on the instructions for use and additional guidance provided by the FDA. Testing is performed in the Microbiology Laboratory within the Department of Pathology and Laboratory Medicine at [facility], certified under the Clinical Laboratory Improvement Amendments of 1988 (CLIA), 42 U.S.C. section 263a, to perform high complexity tests. Assay performance has been verified according to clinical laboratory regulatory requirements. Test results are provided above. A result of Not Detected indicates that the viral RNA target is not present but does not preclude SARS-CoV-2 infection. False negative results may occur if a specimen is improperly collected, transported or handled; if amplification inhibitors are present; or if inadequate numbers of viral particles are present in the specimen. A result of Detected suggests a current or recent infection and the patient is presumed to be infected. Positive and negative predictive values for this test are highly dependent on disease prevalence. A result of Invalid indicates the inability to conclusively determine the presence or absence of SARS-CoV-2 RNA in the sample which can be due to a variety of factors. Recollection is recommended in the case of an invalid result. CDC COVID-19 criteria for testing on human specimens and clinical management guidance information are available at the CDC Coronavirus Disease 2019 (COVID-19) webpage under Information for Healthcare Professionals (https://www.cdc.gov/coronavirus/2019-ncov/hcp/index.html). Additional information about this and other EUA tests can be found in provider and patient fact sheets at the following FDA website: https://www.fda.gov/medical-devices/kmsjzxolzjg-kbmdzwt-1273-vwwzt-76-ssckopwrz- ghl-glvimzuzmbrivl-rywgucz-devices/bhdrr-eibymtozbxz-ssge SARS-CoV-2 Source SH[employer]'S ENGINEER Swab Imaging: Results for orders placed or performed during the hospital encounter of 04/26/21 XR Chest One View (Exam End: 04/26/2021 9:03 PM) Impression FINDINGS/IMPRESSION: AP chest: ET tube is present with its tip approximately 6.0 cm above the maia. Enteric tube is seen coursing through the esophagus with tip not included in the kvpza-cx-wihb. Relatively low lung volumes with bibasilar atelectasis, particularly at the left lung base. Retrocardiac opacity is noted as well. These findings suggest combination of aspiration and atelectasis. There is mild pulmonary vascular congestion without interstitial edema. No sizable pleural effusion or pneumothorax. Normal cardiomediastinal silhouette accounting for the portable technique. No acute osseous abnormality. AP abdomen: Enteric tube is present with its tip in the GE junction and sidehole in the distal esophagus. Recommend at least 6 to 7 cm advancement. Thank you for letting us participate in the care of this patient. If you are a health care provider and have any questions regarding this report, please contact the number below. For patients who have questions please contact the health rn progressive care that requested your imaging first. Electronically signed by: Sona Haji MD, [facility] ([phone]), at 04/26/2021 9:10 PM XR Abdomen 1 view (Generic) (Exam End: 04/26/2021 9:03 PM) Impression FINDINGS/IMPRESSION: AP chest: ET tube is present with its tip approximately 6.0 cm above the maia. Enteric tube is seen coursing through the esophagus with tip not included in the tbpxi-il-uzzn. Relatively low lung volumes with bibasilar atelectasis, particularly at the left lung base. Retrocardiac opacity is noted as well. These findings suggest combination of aspiration and atelectasis. There is mild pulmonary vascular congestion without interstitial edema. No sizable pleural effusion or pneumothorax. Normal cardiomediastinal silhouette accounting for the portable technique. No acute osseous abnormality. AP abdomen: Enteric tube is present with its tip in the GE junction and sidehole in the distal esophagus. Recommend at least 6 to 7 cm advancement. Thank you for letting us participate in the care of this patient. If you are a health care provider and have any questions regarding this report, please contact the number below. For patients who have questions please contact the health rn progressive care that requested your imaging first. Electronically signed by: Sona Haji MD, [facility] ([phone]), at 04/26/2021 9:10 PM XR Abdomen 1 view (Generic) (Exam End: 04/26/2021 10:57 PM) Impression FINDINGS/IMPRESSION: Enteric tube is seen with its tip in the proximal gastric body and sidehole in the GE junction. Recommend further advancement. Thank you for letting us participate in the care of this patient. If you are a health care provider and have any questions regarding this report, please contact the number below. For patients who have questions please contact the health rn progressive care that requested your imaging first. Electronically signed by: Sona Haji MD, [facility] ([phone]), at 04/26/2021 11:[address] Neck Soft Tissue w Contrast (Generic) (Exam End: 04/27/2021 1:36 AM) Impression No fluid collection/abscess identified. Orogastric tube multi-coiled within the pharynx the upper esophagus, including focal kinking at some portions. Thank you for letting us participate in the care of this patient. If you are a health care provider and have any questions regarding this report, please contact the number below. For patients who have questions please contact the health rn progressive care that requested your imaging first. Electronically signed by: Rex Addison MD, [facility] ([phone]), at 04/27/2021 2:54 AM Medications Scheduled Meds: ??? chlorhexidine 15 mL Oral BID ??? famotidine 20 mg Oral BID ??? heparin (porcine) 5,000 Units Subcutaneous Q8H [place] ??? acetaminophen 1,000 mg Oral Q8H [place] Or ??? acetaminophen 1,000 mg Oral Q8H [place] Or ??? acetaminophen 975 mg Rectal Q8H [place] ??? shift total and Settings verification 1 each Intravenous 2 Times Daily - Shift Total ??? shift total and Settings verification Intravenous 2 Times Daily - Shift Total ??? predniSONE 40 mg Oral Daily ??? nicotine 1 patch Transdermal Daily And ??? Patch Verification 1 patch Transdermal BID And ??? [START ON 04/28/2021] nicotine 1 patch Transdermal Daily ??? thiamine 500 mg Intravenous TID Continuous Infusions: ??? fentaNYL 200 mcg/hr (04/27/21 1000) ??? midazolam Stopped (04/26/212044) ??? propofoL 50 mcg/kg/min (04/27/21 08) ??? dexmedetomidine 0.4 mcg/kg/hr (04/27/21 06) PRN Meds: fentaNYL AND [COMPLETED] fentaNYL AND fentaNYL AND shift total and Settings verification AND Assess, midazolam AND midazolam AND shift total and Settings verification,propofoL AND propofoL, diphenhydrAMINE Assessment & Plan: Eric Packer is a 30 y.o. male w/ PMH of polysubstance abuse including EtOH, uncertain which substances or when last used, HTN with prior rx for lisinopril though reported no use in past year, GERD, gastritis, and esophagitis on HD# 1 who was fiberoptically intubated for progressive oropharyngeal edema on the morning of 04/27 at [facility] concerning for angioedema and transferred [place] [facility] [place]. Unclear the precipitant of patient's angioedema, but overall is clinically stable and HD on ventilator support with continued edema of the left tongue and likely there larynx as well, but improved fromdescription of sx at OSH. Differential includes anaphylaxis, iatrogenic angioedema from medication , familial angioedema vs acquired with C1 inhibitor deficiency. S/p IV solumedrol at OSH and will continue with oral prednisone and PRN IV benadryl. Will check complement levels including C4 and C1q as well tryptase, C1 inhibitor antigen to assess for differential above. CT neck to r/o other etiology ofairway compromise such as peritonsillar abscess and plan for ENT to evaluate further with possible laryngoscopy. Pt is currently sedated w/ UDS pending given history of polysubstance abuse; given hx ofalcohol use will plant start CIWA protocol when clinically appropriate to withdraw sedation. Overall, Mr. Pacekr is stable. He is on a ventilator but has passed his SBT with positive cuff leakand can be extubated. Reached out to ENT to check if could check his oropharynx for edema. Per ENT, they will not be able to see much with the ET tube and if RT feels pt is ready for extubation, pt canbe extubated. ENT ready to help if we need further assistance post extubation. After extubation, will wean off sedation and start on phenobarb for alcohol withdrawal. Additionally, his UTOx is positivefor benzos and fentanyl. Unclear when his last dose was but the phenobarb should help him for those substances as well The etiology of his angioedema is still unclear. He did not present with anaphylactic-type reaction so it is unlikely to be mast-cell mediated angioedema but likely bradykinin-mediated angioedema. His C4 complement is negative but C1 labs are pending. Given he is outside a lot and has risk of tick exposure, there is concern for meat allergy secondary to [place] tick bite. [place] tick is generally found in [place] , but given all of the work-up has been negative, will test for alpha-gal allergy. Remaining plan as below: ?? PLAN: ?? Neuro ?? #Sedation - Wean propofol gtt - Wean fentanyl gtt?? - Wean precedex gtt - midazolam gtt + PRN boluses - RASS goal -2 ?? #Alcohol Abuse #Polysubstance Abuse - UTox: +benzos and fentanyl - s/p versed drip - thiamine 500 mg IV tid - Start place patient on CIWA - Start phenobarbital protocol ?? Cardiovascular ?? #HTN - JAVON - normotensive - NSR; HR wnl - monitor on tele - not taking home antihypertensives - continue to monitor BP closely as we withdraw sedation ?? Pulmonary ?? #Airway compromise 2/2 to Laryngeal Edema -Intubated & ventilated - Extubate today -AMV protocol -VC: TV??550, PEEP??5,??FiO2 45%, RR 14 -CXR -VBG PRN - s/p solumedrol(presumably 125 mg IV at OSH_ - continue prednisone 40 mg qd x 5-7 days - CT neck w/wo contrast - no peritonsillar abscess - ENT consult for further evaluation of laryngeal edema with laryngoscope ?? #Active Tobacco Use - tobacco cessation counseling - nicotine patch qd? Renal - JAVON - monitor lytes and Cr with daily BMP - monitor UO - ayala in place ?? Gastroenterology ?? #GERD #Gastritis/Esophagitis #GI PPx - famotidine 25 mg bid(added benefit of H2 blockade) ?? #Nutrition -NPO -tube feed within 48 hours? #PPx - famotidine 25 mg bid vs protonix 40 mg qd ?? Rheumatology/Allergy - CRP - normal - C4 complement level - normal - tryptase level - C1 esterase inhibitor, functional - C1 esterase inhibitor, antigen - C1q Complement - steroids as above - PRN benadryl 25 mg IV q4hrs PRN for increased swelling or erythema ?? Endocrine - monitor tid POC glucose while on steroid regimen - if poc glucose > 240 consider initiating SSI - TSH ?? Infection -??COVID admission PCR ?- negative COVID at??OSH - CXR as above - No indication for BCx or sputum culture at this time - CT neck to r/o abscess as above although low likelihood - UA pending - no indication for abx ?? Heme/Onc -??monitor CBC - maintain Hgb > 7 and plts > 10 Routine Diet: NPO diet (Give Meds) DVT Prophylaxis: SubQ Heparin GI Prophylaxis: famotidine 20 mg qd Code Status: Attempt Cardiopulmonary Resuscitation - Inpatient DPOAH: Eric Packer Sr., father Dispo: Pending clinical course Rosana Quevedo MD Internal Medicine, PGY1 Blue Team #[id number] Dagoberto Prasad, SENIOR SUSTAINABILITY CONSULTANT - 04/27/2021 5:09 AM EDT AMV Protocol: Yes SBT Protocol: Yes SBT: Passed Vent Settings: Ventilator Mode: (S) VC Tidal Volume Set: 630 Resp Rate Set: 10 PEEP Set: 5 FiO2: 31 % Ventilator Measurements: Resp: 12 Vt Exhaled: 610 PIP: 15 MAP: 7.5 Plateau Press: 15 Ve: 8.7 PEEP: 5 cmH20 SpO2: 96 % EtCO2: 37 mmHg Airway: 7.5 @ 23 cm at the Teeth. Skin Integrity: WDL Pt placed on pressure support when he woke up, appropriate, following commands. There was a leak around the ETT cuff. Also patient was coughing up moderate amount of thick white mucous into his mouth.Pt resedated pending ENT evaluation per physician. Once patient adequately sedated, placed back intoVC. Galdino Hunt, OWNER PROFESSIONAL ENGINEER - 04/26/2021 10:21 PM EDT 30yo M with reported h/o polysubstance use d/o including EtOH, uncertain which substances or when last used, and possible h/o HTN with prior Rx for Lisinopril though reported no use in past year who was fiberoptically intubated for progressive oropharyngeal edema since this AM concerning for angioedema. AMV Protocol: Yes SBT Protocol: Yes SBT: passed Vent Settings: Ventilator Mode: (S) VC Tidal Volume Set: 630 Resp Rate Set: 10 PEEP Set: 5 FiO2: 31 % Ventilator Measurements: Resp: 12 Vt Exhaled: 610 PIP: 15 MAP: 7.5 Plateau Press: 15 Ve: 8.7 PEEP: 5 cmH20 SpO2: 98 % EtCO2: 38 mmHg Airway: 7.5 @ 23 cm at the Teeth. Skin Integrity: WDL FINDINGS/IMPRESSION: ?? AP chest: ET tube is present with its tip approximately 6.0 cm above the maia. Enteric tube is seen coursing through the esophagus with tip not included in the [id number]-[id number]. Relatively low lung volumes with bibasilar atelectasis, particularly at the left lung base. Retrocardiac opacity is noted as well. These findings suggest combination of aspiration and atelectasis. There is mild pulmonary vascular congestion without interstitial edema. No sizable pleural effusion or pneumothorax. Normal cardiomediastinal silhouette accounting for the portable technique. No acute osseous abnormality. ?? AP abdomen: Enteric tube is present with its tip in the GE junction and sidehole in the distal esophagus. Recommend at least 6 to 7 cm advancement. Electronically signed by: Sona Haji MD, [facility] ([phone]), at 04/26/2021 9:10 PM Breath Sounds: Gonzalo CTA Secretions: minimal Assessment / Events / Plan of the Day: Pt seen received from OSH and on MV. The pt was initially on Vt 7ml/kg, increased to 8ml/kg. Pt is sedated and not in distress. ETT verified by ETCO2 and , CXR, BBS. Pt tolerating the settings through the night. Weaned on sedation and placed in PSV then Cpap, following commands. Pt demonstrated air movement around the cuff and the team was notified for possible extubation, pending obs by the team. Pt will need evaluation from ENT pt re-sedated for comfort at this time. Galdino Hunt RCP Dane Abernathy MD - 04/26/2021 3:55 PM EDT [facility] [place] [place] Acceptance Note Referring Facility and Physician: [facility] - Dr. Pittman Accepting Service and Physician: [facility] - Dr. Sanz Clinical Summary: 30yo M with reported h/o polysubstance use d/o including EtOH, uncertain which substances or when last used, and possible h/o HTN with prior Rx for Lisinopril though reported no use in past year who was fiberoptically intubated for progressive oropharyngeal edema since this AM concerning for angioedema. By report, woke this morning, ate leftover pizza around 7A, and noted mouth swelling and sensation of throat closing. In ED, facial and oropharyngeal swelling was notable on exam and worsened relatively quickly. Initially seemed more swollen on L oropharynx, then uvula enlarged. Ultimately fiberoptically intubated in the OR. He was normotensive. Received solumedrol and Benadryl. No imaging. Rash on Rarm x 1 week thought to be poison daphnie, but no other rashes or urticaria noted. SARS-CoV-2 swab performed and results pending - Dr. Pittman will update transfer center if results positive. Will need re-evaluation upon arrival, continuation of steroids, H1 benjie, consider sending C4 level, C1 inhibitor level, tryptase though perhaps lower yield if drawn late and no notable anaphylactoidfeatures or hives. Based on exam consider need for neck CT in case of pharyngeal abscess, etc. Dane Abernathy MD [facility] Attending Physician, Pulmonary and Critical Care Medicine This is a non-billable note and charges should not be filed. documented in this encounter H&P Notes Justin Brown MD - 04/26/2021 7:05 PM EDT Critical Care Medicine Admission History and Physical Patient Name: Eric Packer Service: Critical Care Medicine - [place] Team 1 #[id number] Responsible Attending: Ludin Peraza MD, MD PCP: None PCP phone #: None ID/Chief Complaint: Mr. Eric Packer is a 30 yo M with reported h/o polysubstance abuse including EtOH, uncertain which substances or when last used, HTN with prior rx for lisinopril though reported no use in past year, GERD, gastritis, and esophagitis, who was fiberoptically intubated for progressive oropharyngeal obie ma since this morning at [facility] concerning for angioedema and transferred to [facility] [place] further management. History of Present Illness(Limited due to mental status/attained per chart review): Pt reportedly woke up around 5:30 am this morning and had some pizza for breakfast around 7am. At 9 am, began to have a sensation of his throat swelling that continued to progressively worsen. He otherwise, had been in his normal state of health although was noted to have an pruritic rash on his rightarm for the past week that he attributed to poison daphnie. As noted above, although had a prescription for lisinopril, had not taken any of his medications in over a year. He had no prior similar episodesin the past and had no history of allergies. He denies any recent drug or alcohol use, but his sister reported that he appeared altered and his father reports that he had been using drugs, but unclear of which drugs or the amount although there was some mention of cocaine and his sister confirmed he had been using heroine. He had in the past been known to drink up to 30 beers a day during the weekend; unclear during the week but was a heavy daily user. He denied any recent infective or cardiopulmonary sx. No hx of recent trauma. Of note, he has not been COVID vaccinated. In ED, facial and oropharyngeal swelling was notable on exam and worsened relatively quickly. Initially seemed more swollen on L oropharynx, then uvula enlarged. Ultimately fiberoptically intubated in the OR with 2 ml lidocaine, 30 mg ketamine, 200 mg of propofol, and midazolam at 2 mg infusion.. He was normotensive. Received solumedrol and benadryl but dosages are not documented. No imaging. Rash onR arm x 1 week thought to be poison daphnie, but no other rashes or urticaria noted. At no point was he given epinephrine for unclear reason. Upon transfer, he remained ventilated - VC with set volume of 550, RR 14, PEEP 5, FiO2 45% satting 99% with PIPs in the Low 20s. Upon arrival, plateau pressure was 15. Despite sedation, patient became intermittently and rapidly agitated requiring additional boluses of fentanyl for total of 350, 400 ofketamine, and remained on infusion of propofol at 80. OSH Vitals: BMI 30.25; RR 20; BP 127/83; HR 63; Temp 97.3; Pain 0; satting well on RA OSH labs prior to transfer: CBC - wbc 8.7; hgb 15.6; plt 211; Neutrophil % 56.2(cbc wnl); Eos 6.0(ULN 6.0)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 any qu estions. Chloride 108 (H) 98 - 107 mmol/L [facility] CO2 23 22 - 31 mmol/L [facility] Anion Gap 11 5 - 15 mmol/L [facility] LABOR[facility]ORY Calcium 8.4 (L) 8.5 - 10.5 mg/dL [facility]OR[facility] Estimated GFR 130 >=60 mL/min/1.73 m?? [facility] Comment: This patient? s estimated glomerular filtration rate (eGFR) is between 130 mL/min/1.73 m2 (patients with less muscl e mass per kg body weight) and 150 mL/min/1.73 m2 (patients with more muscl e mass per kg body weight) as determined by the CKD-EPI equation. Asse ssment of eGFR is not appropriate when creatinine concentrations are rapidly ch anging. For clinical decisions where creatinine clearance will affect therapy , a 24-hour urine creatinine clearance may be advised. Assignment of CKD stage 1 - 5 for patien ts with an eGFR near the transition point between stages may be based on cli nical assessment of muscle mass and symptoms in addition to eGFR. Specimen Anatomical Collection Method Collection Time Receive d Time (Source) Location / / Volume Laterality Blood 04/28/2021 4:00 AM 4:11 EDT AM EDT Resulting Agency Comment Spec In Lab Ludin Peraza MD CHEMISTRY ORDERABLES Performing Organization Address City/State/[place] [address] Tkxmwnuin-crnoc-3,3-galactose IgE (04/27/2021 3:35 PM EDT) P athologist Signature Alpha Gal IgE <0.10 <0.10 kU/L [facility] Comment: Previous reports (ALEXSI 2009;123:426-433) have demonstrated that patients with IgE antibodies to galactos e-a-1,3-galactose are at risk for delayed anaphylaxis, angioedema , or urticaria following consumption of beef, pork, or alcantar. *This test was developed and its perform ance characteristics determined by [facility]. It has n ot been cleared or approved by the U.S. Food and Drug Administration . Performed at: [facility];[address] ;[place] [address];Fill Technician: Cliff Herbert Ph .D., BCLD (ABB);CLIA#: [id number];Phone: Specimen Anatomical Collection Method Collection Time Receive d Time (Source) Location / / Volume Laterality Blood 04/27/2021 3:35 PM EDT 12:52 PM EDT Resulting Agency Comment Spec In Lab Gaurang Rocha MD CHEMISTRY ORDERABLES Performing Organization Address City/[facility]/[place] [address] Group A Strep by PCR (04/27/2021 2:59 PM EDT) Patholo gist Method Time Signature Group A Strep Not Detected Not Detected JOSH by PCR [facility] LABORATORY Group A PCR Throat JOSH Source [facility] LABORATORY Specimen Anatomical Collection Method Collection Time Receive d Time (Source) Location / / Volume Laterality Throat 04/27/2021 2:59 PM 4:00 EDT PM EDT Resulting Agency Comment Spec In Lab Gaurang Rocha MD MICROBIOLOGY - GENERAL ORDER JT Performing Organization Address City/State/[place] [address] POCT Glucose (04/27/2021 7:52 AM EDT) P athologist Signature POC Glucose 120 65 - 199 [facility] mg/dL [facility] Comment: Supplemental ranges: <140 mg/dL before meals <180 mg/dL all other times of the day Specimen Anatomical Collection Method Collection Time Receive d Time (Source) Location / / Volume Laterality Blood 04/27/2021 7:52 AM 7:52 EDT AM EDT Ludin Peraza MD POINT OF CARE TEST ORDERABLE S Performing Organization Address City/State/[place] [address] [facility] LABORATORY Drive (ABNORMAL) Differential, Automated (04/27/2021 5:40 AM EDT) Patholo gist Method Time Signature Neutrophils % 85.7 % [facility] Neutr Abs (ANC) 9.56 (H) 1.70 - [facility] 6.10 [facility] x10(3)/[facility] LABORATORY Lymphocytes % 8.7 % [facility]OR[facility] Lymphocytes Abs 1.0 0.9 - 3.2 [facility] x10(3)/[facility] LABORATORY Monocytes % 5.0 % [facility]OR[facility] Monocyte Abs 0.6 0.3 - 0.9 [facility] x10(3)/[facility] LABORATORY Eosinophils % 0.1 % [facility] Eosinophils Abs 0.0 0.0 - 0.4 [facility] x10(3)/[facility] LABORATORY Basophils % 0.1 % [facility] Basophils Abs 0.0 0.0 - 0.1 [facility] x10(3)/[facility] LABORATORY Immature Gran % 0.40 % [facility] Comment: Immature granulocytes(IG's)percentage an d absolute count will include metamyelocytes, myelocytes, and promyelo cytes. Blood smears from CBCs yielding IG's will be scanned manually for concor dance. If this scan disagrees with the automated IG or if promyelocytes are not ed, a manual differential will be performed. Gemini Gran Abs 0.04 0.00 - 0.04 x10(3)/[facility] MAR Y [facility] LABORATORY Specimen Anatomical Collection Method Collection Time Receive d Time (Source) Location / / Volume Laterality Blood 04/27/2021 5:40 AM 1 6:02 EDT AM EDT Resulting Agency Comment Spec In Lab Justin Brown MD HEMATOLOGY ORDERABLES Performing Organization Address City/State/[place] [address] (ABNORMAL) Hemogram (04/27/2021 5:40 AM EDT) Analysis Performed At Patho logist Time Signature WBC 11.2 (H) 4.0 - 9.5 [facility] x10(3)/[facility] LABORATORY RBC 4.89 4.58 - [facility] 5.54 [facility] x10(6)/[facility] LABORATORY Hemoglobin 15.6 13.7 - [facility] 16.5 g/dL [facility]OR[facility]ORY Hematocrit 44.6 40.5 - [facility] 48.5 % [facility]AT[facility] MCV 91.2 82.9 - [facility] 93.1 [facility] LABORATORY MCH 31.9 27.5 - [facility] 32[facility] pg [facility] MCHC 35.0 32.0 - [facility] 35.7 g/dL [facility]ORATORY Platelets 243 145 - 357 [facility] x10(3)/[facility] LABORATORY RDWSD 38.8 36.0 - [facility] MANDO 45.0 [facility] LABORATORY RDWCV 11.6 11.4 - [facility] 13.8 % [facility] LABORATORY MPV 9.2 7.6 - 12.9 [facility] LABORATORY nRBC % Auto 0.0 % [facility] LABORATORY nRBC Abs Auto 0.000 0.000 - [facility] 0.000 [facility] x10(3)/[facility] LABORATORY Specimen Anatomical Collection Method Collection Time Receive d Time (Source) Location / / Volume Laterality Blood 04/27/2021 5:40 AM 1 6:02 EDT AM EDT Resulting Agency Comment Spec In Lab Justin Brown MD HEMATOLOGY ORDERABLES Performing Organization Address City/State/[place] [address] (ABNORMAL) Basic Metabolic Panel (non-fasting) (04/27/2021 5:40 AM EDT) P athologist Signature Glucose Lvl 138 65 - 199 [facility] mg/dL [facility] Comment: Diabetes: >=200 mg/dL plus symp toms BUN 13 10 - 20 mg/dL [facility] LABORATORY Creatinine 0.66 (L) 0.80 - 1.50 mg/dL [facility] LABORATORY Sodium 146 (H) 135 - 145 mmol/L [facility]ORAT[facility] Potassium 3.8 3.5 - 5.0 mmol/L [facility] Comment: Please note: ??Patients with WBC >100,00 0 may have falsely elevated Potassium levels. ??For accurate Potassium quantif ication in these patients send serum separator tube (gold top) for subsequent determinations. ??Contact the Clinical Chemistry Laboratory if there are any qu estions. Chloride 110 (H) 98 - 107 mmol/L [facility] CO2 23 22 - 31 mmol/L [facility] Anion Gap 13 5 - 15 mmol/L [facility] LABORATORY Calcium 9.1 8.5 - 10.5 mg/dL [facility]OR[facility] Estimated GFR 131 >=60 mL/min/1.73 m?? [facility] Comment: This patient? s estimated glomerular filtration rate (eGFR) is between 131 mL/min/1.73 m2 (patients with less muscl e mass per kg body weight) and 151 mL/min/1.73 m2 (patients with more muscl e mass per kg body weight) as determined by the CKD-EPI equation. Asse ssment of eGFR is not appropriate when creatinine concentrations are rapidly ch anging. For clinical decisions where creatinine clearance will affect therapy , a 24-hour urine creatinine clearance may be advised. Assignment of CKD stage 1 - 5 for patien ts with an eGFR near the transition point between stages may be based on cli nical assessment of muscle mass and symptoms in addition to eGFR. Specimen Anatomical Collection Method Collection Time Receive d Time (Source) Location / / Volume Laterality Blood 04/27/2021 5:40 AM 6:02 EDT AM EDT Resulting Agency Comment Spec In Lab Ludin Peraza MD CHEMISTRY ORDERABLES Performing Organization Address City/State/ZIP Code Phon e Number [place] [id number] HOSPITAL LABORATORY Drive CT Neck Soft Tissue w Contrast (Generic) (04/27/2021 1:36 AM EDT) Anatomical Region Laterality Modality Neck, Head Computed Tomography Specimen (Source) Anatomical Collection Method Collection Time Re ceived Time Location / / Volume Laterality 04/27/2021 1:53 AM EDT Impressions 04/27/2021 2:54 AM EDT No fluid collection/abscess identified. Orogastric tube multi-coiled within the pharynx the upper esophagus, including focal kinking at some portions. Thank you for letting us participate in the care of this patient. ??If you are a health care provider and have any questi ons regarding this report, please contact the number below. ??For patients who have questions please contact the health rn progressive care that requested your imaging first. ? Narrative 04/27/2021 2:54 AM EDT EXAMINATION: CT NECK SOFT TISSUE W CONTRAST (GENERIC) CLINICAL HISTORY: Laryngeal edema r/o abscess TECHNIQUE: CT neck performed after the intravenous administration of contrast. Administered 110.0 ml of OMNIPAQUE 350.00 mg/ml. COMPARISON: None FINDINGS: Mucosal thickening scattered within the included paranasal sinuses. Small polyps or mucous retention cysts within the max illary antra. Otomastoid spaces appear well aerated. Endotracheal tube tip term inates within the upper intrathoracic trachea. Orogastric tube multi-coiled wi thin the pharynx and upper esophagus with foci of kinking before its descent through the esophagus. Evaluation of the soft tissues demonstrates no evidence of inflammatory change, fluid collection/abscess, soft tissue air, or suspicious lymphadenopathy identified. Included lung apices appear clear. Major neck vessels appear unremarkable. Procedure Note Rex Addison MD - 04/27/2021 EXAMINATION: CT NECK SOFT TISSUE W CONTR AST (GENERIC) CLINICAL HISTORY: Laryngeal edema r/o abscess TECHNIQUE: CT neck performed after the intravenous administration of contrast. Administered 110.0 ml of OMNIPAQUE 350.00 mg/ml. COMPARISON: None FINDINGS: Mucosal thickening scattered within the included paranasal sinuses. Small polyps or mucous retention cysts within the max illary antra. Otomastoid spaces appear well aerated. Endotracheal tube tip term inates within the upper intrathoracic trachea. Orogastric tube multi-coiled wi thin the pharynx and upper esophagus with foci of kinking before its descent through the esophagus. Evaluation of the soft tissues demonstrates no evidence of inflammatory change, fluid collection/abscess, soft tissue air, or suspicious lymphadenopathy identified. Included lung apices appear clear. Major neck vessels appear unremarkable. IMPRESSION No fluid collection/abscess identified. Orogastric tube multi-coiled within the pharynx the upper esophagus, including focal kinking at some portions. Thank you for letting us participate in the care of this patient. If you are a health care provider and have any questi ons regarding this report, please contact the number below. For patients w ho have questions please contact the health rn progressive care that requested your imaging first. Electronically signed by: Rex Addison MD, [facility] ([phone]), at 04/27/2021 2:54 AM Ludin Peraza MD IMG CT ORDERABLES COVID-19 PCR (04/26/2021 11:40 PM EDT) [facility] Method Time Signature SARS-CoV-2 Not Detected Not Detected JOSH RNA PCR [facility] LABORATORY Comment: This result should be interpreted in com bination with the clinical observations, patient history and epidem iological information. For testing of asymptomatic individuals, assay performa nce characteristics and clinical utility have not been evaluated. Testing for SARS-CoV-2 (Severe acute respiratory syndrome coronavirus 2, form erly known as 2019 novel coronavirus or 2019-nCoV) to aid in the diagnosis of CO VID-19 is performed using the Simplexa COVID-19 Direct Assay by [employer] ben[employer] as authorized by the FDA issued Emergency Use Authorization (EUA). This assay is intended for In-vitro Diagnostic (IVD) use with nasopharyngeal swabs collected from individuals meeting the CDC criteria for testing. e assay is performed based on the instructions for use and additional guid ance provided by the FDA. Testing is performed in the Microbiology Laboratory within the Department of Pathology and Laboratory Medicine at [facility], certified under the Clinical Laboratory Improvement Amendmen ts of 1988 (CLIA), 42 U.S.C. section 263a, to perform high complexity tests. Assay performance has been verified according to clinical laboratory regulat ory requirements. Test results are provided above. A resul t of Not Detected indicates that the viral RNA target is not present but does not preclude SARS-CoV-2 infection. False negative results may occur if a sp ecimen is improperly collected, transported or handled; if amplification inhibitors are present; or if inadequate numbers of viral particles ar e present in the specimen. A result of Detected suggests a current or recent infection and the patient is presumed to be infected. Positive and negative pr edictive values for this test are highly dependent on disease prevalence. A result of Invalid indicates the inability to conclusively determine the presence or absence of SARS-CoV-2 RNA in the sample which can be due to a vari ety of factors. Recollection is recommended in the case of an invalid re sult. CDC COVID-19 criteria for testing on hum an specimens and clinical management guidance information are available at th e CDC Coronavirus Disease 2019 (COVID-19) webpage under Information fo r Healthcare Professionals (https://www.cdc.gov/coronavirus/2019-nc ov/hcp/index.html). Additional information about this and ot her EUA tests can be found in provider and patient fact sheets at the following FDA website: https://www.fda.gov/medical-devices/nctjgjoghqa-gqqnlmn-6883-kztlh-95-nabbirrgo- urh-btuncafmcrhups-yyxnlsc-devices/ysggg-ziujgddaurw-czin SARS-CoV-2 Source [employer] Swab [facility]OR[facility] Specimen (Source) Anatomical Collection Method Collection Time Re ceived Time Location / / Volume Laterality Nasopharyngeal Swab 04/26/2021 11:40 09/2 01/2021 PM EDT 12:26 AM EDT Comment: Symptoms->Surveillance Resulting Agency Comment Spec In Lab Beck Sanz MD MICROBIOLOGY - GENERAL ORDER JT Performing Organization Address City/[facility]/ZIP Code Phon e Number [address] Tryptase (04/26/2021 11:30 PM EDT) P athologist Signature Tryptase 3.0 <=11.1 [facility] ng/mL [facility] Comment: Total tryptase concentrations that are p ersistently greater than 20 ng/mL may be consistent with systemic mastocytosis . Specimen Anatomical Collection Method Collection Time Receive d Time (Source) Location / / Volume Laterality Blood 04/26/2021 11:30 04/27/2021 8:01 PM EDT AM EDT Resulting Agency Comment Spec In Lab Ludin Peraza MD CHEMISTRY ORDERABLES Performing Organization Address [facility] Phon e Number [address] XR Abdomen 1 view (Generic) (04/26/2021 10:57 PM EDT) Anatomical Region Laterality Modality Abdomen N/A Digital Radiography Specimen (Source) Anatomical Location Collection Method / Collectio n Time Received Time / Laterality Volume Impressions 04/26/2021 11:13 PM EDT FINDINGS/IMPRESSION: Enteric tube is seen with its tip in the proximal gastric body and sidehole in the GE junction. Re commend further advancement. Thank you for letting us participate in the care of this patient. ??If you are a health care provider and have any questi ons regarding this report, please contact the number below. ??For patients who have questions please contact the health rn progressive care that requested your imaging first. ? Electronically signed by: Sona Haji MD, [facility] ([phone]), at 04/26/2021 11:13 PM Narrative 04/26/2021 11:13 PM EDT EXAMINATION: XR ABDOMEN 1 VIEW (GENERIC) CLINICAL HISTORY: confirm ogt adjustment TECHNIQUE: A single portable abdominal r adiograph is provided for review. COMPARISON: Radiograph done earlier ezio lopez. Procedure Note Sona Haji MD - 04/26/2021Formatt ing of this note might be different from the original. EXAMINATION: XR ABDOMEN 1 VIEW (GENERIC) CLINICAL HISTORY: confirm ogt adjustment TECHNIQUE: A single portable abdominal r adiograph is provided for review. COMPARISON: Radiograph done earlier ezio lopez. IMPRESSION FINDINGS/IMPRESSION: Enteric tube is see n with its tip in the proximal gastric body and sidehole in the GE junction. Re commend further advancement. Thank you for letting us participate in the care of this patient. If you are a health care provider and have any questi ons regarding this report, please contact the number below. For patients w ho have questions please contact the health rn progressive care that requested your imaging first. Electronically signed by: Snoa Haji MD, [facility] ([phone]), at 04/26/2021 11:13 PM Ludin Peraza MD IMG DX ORDERABLES EKG 12 Lead (04/26/2021 9:48 PM EDT) Component Value Ref Range Test Analysis Performed Pathologis t Method Time At Signature Ventricular rate 57 BPM MUSE SYSTEM Atrial Rate 57 BPM MUSE SYSTEM P-R Interval 186 ms MUSE SYSTEM QRS Duration 98 ms MUSE SYSTEM Q-T Interval 466 ms MUSE SYSTEM QTC Calculated 453 ms MUSE SYSTEM (Bezet) Calculated P [place] 54 degrees MUSE SYSTEM Calculated R [place] 16 degrees MUSE SYSTEM Calculated T [place] -3 degrees MUSE SYSTEM INTERPRETATION Sinus bradycardia MUSE SY STEM Otherwise normal ECG When compared with ECG of 03-MAY-2018 07:53, No significant change was found Confirmed by MD Barraza Danette ([id number]) on 04/27/2021 9:10:56 AM Specimen Anatomical Collection Method Collection Time Receive d Time (Source) Location / / Volume Laterality 04/26/2021 9:48 PM 9:10 EDT AM EDT Beck Sanz MD ECG ORDERABLES Performing Organization Address City/State/ZIP Code Phon e Number MUSE SYSTEM (ABNORMAL) Opioids Confirmation Panel, Urine (04/26/2021 9:40 PM EDT) P athologist Signature U Morphine Lvl <10.0 <=9.9 [facility] ng/mL [facility] Comment: The presence of morphine may arise from the use of morphine-containing drugs, poppy seeds, or via metabolism of either codeine or heroin. When generated by the metabolism of codeine, the concentra tion of morphine is typically less than the concentration of codeine. When gener ated by the metabolism of heroin, morphine is usually present at a concent ration greater than the 6-LIZZ concentration. Hydromorphone is a minor metabolite of morphine. Cutoff = 10 ng/mL. U Oxymorphone Lvl <10.0 <=9.9 ng/mL [facility] Comment: Oxymorphone may arise from the use of ox ymorphone-containing drugs or by metabolism of oxycodone. Cutoff = 10 ng/ mL. U Hydromorphone Lvl <10.0 <=9.9 ng/mL [facility]OR[facility] Comment: Hydromorphone may arise from the use of hydromorphone-containing drugs or by metabolism of morphine. Cutoff = 10 ng/m L. U Dihydrocodeine Lvl <10.0 <=9.9 ng/mL [facility] Comment: Dihydrocodeine may arise from the use of dihydrocodeine-containing drugs or by metabolism of hydrocodone (minor metabol ite). Cutoff = 10 ng/mL. U Naloxone Lvl <5.0 <=4.9 ng/mL [facility] Comment: Naloxone is not recognized as a metaboli te of other opioids and its presence indicates the use of naloxone or naloxon e-containing products such as Suboxone??. Patients taking a low dose o f naloxone may be compliant despite a naloxone result below the limit of detec tion. Cutoff = 5 ng/mL. U Codeine Lvl <10.0 <=9.9 ng/mL [facility] Comment: Codeine is not a recognized metabolite o f other opioids and its presence indicates use of a codeine-containing dr ug. Codeine metabolites include morphine and hydrocodone (minor metaboli te). The presence of codeine in the absence of its metabolites (morphine and hydrocodone) suggests placement of codeine directly into the urine specimen rather than ingestion. Cutoff = 10 ng/mL. U Noroxycodone Lvl <10.0 <=9.9 ng/mL [facility] Comment: Noroxycodone is a metabolite of oxycodon e and its presence indicates oxycodone use. Cutoff = 10 ng/mL. U Oxycodone Lvl <5.0 <=4.9 ng/mL [facility] Comment: Oxycodone is not a recognized metabolite of other opioids and its presence indicates use of an oxycodone-containing drug. Oxycodone is metabolized to oxymorphone and noroxycodone. The presen ce of oxycodone in the absence of its metabolites (noroxycodone, oxymorphone) suggests placement of oxycodone directly into the urine specimen rather than ingestion. Cutoff = 5 ng/mL. U 6-LIZZ Lvl <5.0 <=4.9 ng/mL [facility] Comment: 6-LIZZ: The presence of 6-monoacetylmorph ine (6-LIZZ) indicates heroin use. 6-LIZZ is metabolized to morphine. Cutoff = 5 n g/mL. U Norhydrocodone Lvl <10.0 <=9.9 ng/mL [facility] Comment: Norhydrocodone is the major met abolite of hydrocodone. Cutoff = 10 ng/mL. U O-Desmethyltramadol Lvl <25.0 <=24.9 ng/mL [facility] Comment: O-desmethyltramadol is a metabolite of t ramadol and its presence indicates tramadol use. Cutoff = 25 ng/mL. U Hydrocodone Lvl <10.0 <=9.9 ng/mL [facility] Comment: Hydrocodone may arise from the use of hy drocodone-containing drugs or by metabolism of codeine. When generated by the metabolism of codeine, the concentration of hydrocodone is typicall y less than the concentration of codeine. Hydrocodone is metabolized to n orhydrocodone, dihydrocodeine, and hydromorphone (minor metabolite). Cutoff = 10 ng/mL. U Norfentanyl Lvl >200.0 (H) <=0.9 ng/mL [facility] Comment: Norfentanyl is a metabolite of fentanyl and its presence indicates fentanyl use. Cutoff = 1 ng/mL. U Tramadol Lvl <25.0 <=24.9 ng/mL [facility] Comment: Tramadol is not recognized as a metaboli te of other opioids and its presence indicates the use of tramadol-containing drugs. The presence of tramadol in the absence of O-desmethyltramadol suggests placement of tramadol directly into the urine specimen rather than ingestion. Cu toff = 25 ng/mL. U Norbuprenorphine Lvl <5.0 <=4.9 ng/mL [facility] Comment: Norbuprenorphine is a metabolite of bupr enorphine and its presence indicates use of buprenorphine or combination prod ucts such as Suboxone??. Cutoff = 5 ng/mL. U Fentanyl Lvl 60.1 (H) <=0.9 ng/mL [facility] Comment: Fentanyl is not recognized as a metaboli te of other opioids and its presence indicates the use of fentanyl-containing drugs. The presence of fentanyl in the absence of norfentanyl suggests placemen t of fentanyl directly into the urine specimen rather than ingestion. Cutoff = 1 ng/mL. U Buprenorphine Lvl <5.0 <=4.9 ng/mL [facility] Comment: Buprenorphine is not recognized as a met abolite of other opioids and its presence indicates the use of buprenorph ine or combination products such as Suboxone??. Patients taking a low dose o f buprenorphine may be compliant despite a buprenorphine result below the limit o f detection. Cutoff = 5 ng/mL. U EDDP+ Lvl <25.0 <=24.9 ng/mL [facility] Comment: EDDP+ is a metabolite of methadone. The presence of EDDP+ indicates use of methadone. Cutoff = 25 ng/mL. U Methadone Lvl <25.0 <=24.9 ng/mL [facility] Comment: Methadone is not recognized as a metabol ite of other opioids and its presence indicates the use of methadone-containin g drugs. The presence of methadone in the absence of EDDP+ suggests placement of methadone directly into the urine specimen rather than ingestion. Cutoff = 25 ng/mL. Opioid Panel Interp See Comment [facility] Comment: This test was performed using liquid chr omatography tandem mass spectrometry (LC-MS/MS). This test was developed and its performance characteristics determined by the Department of Patholog y and Laboratory Medicine at [facility]. It h as not been cleared or approved by the FDA. The laboratory is regulated under [place] as qualified to perform high-complexity testing. This test is us ed for clinical purposes and should not be used for investigational or research purposes. For any interpretation questions, please contact the laboratory at [phone]. Specimen Anatomical Collection Method Collection Time Receive d Time (Source) Location / / Volume Laterality Urine Urine / Unknown 04/26/2021 9:40 PM 2020 8:01 EDT AM EDT Resulting Agency Comment Spec In Lab Justin Brown MD URINE ORDERABLES Performing Organization Address City/State/[place] [address] Benzodiazepine, Urine Confirmation (04/26/2021 9:40 PM EDT) Component Value Ref Test Analysis Performed At [facility] gist Range Method Time Signature U Benzo Conf JOSH Test ? Result ?? Flag ??Unit ?? RefValue [facility] Benzodiazepines [facility], [facility] ??Alprazolam by LC-MS/MS ? Negative ? ng/mL ??Cutoff: 10 LABORATORY ??Alpha-Hydroxyalprazolam b y LC-MS/MS ?Negative ? ng/mL ??Cutoff: 10 ? Testing performed at a x2 dilution; limit of quantita tion ?is elevated. ??Chlordiazepoxide by LC-MS /MS ? Negative ? ng/mL ??Cutoff: 10 ??Clonazepam by LC-MS/MS ? Negative ? ng/mL ??Cutoff: 10 ??7-aminoclonazepam by LC-M S/MS ?Negative ? ng/mL ??Cutoff: 10 ??Diazepam by LC-MS/MS ? Negative ? ng/mL ??Cutoff: 10 ??Nordiazepam by LC-MS/MS ?Negative ? ng/mL ??Cutoff: 10 ??Midazolam by LC-MS/MS ?11 ? ng/mL ??Cutoff: 10 ??Alpha-Hydroxy Midazolam b y LC-MS/MS ?283 ?ng/mL ??Cutoff: 10 ??Oxazepam by LC-MS/MS ? Negative ? ng/mL ??Cutoff: 10 ??Temazepam by LC-MS/MS ?Negative ? ng/mL ??Cutoff: 10 ??Clobazam by LC-MS/MS ? Negative ? ng/mL ??Cutoff: 10 ??N-Desmethylclobazam by LC -MS/MS ?Negative ? ng/mL ??Cutoff: 10 ??Flunitrazepam by LC-MS/MS ?Negative ? ng/mL ??Cutoff: 10 ??7-aminoflunitrazepam by L C-MS/MS ? Negative ? ng/mL ??Cutoff: 10 ??Flurazepam by LC-MS/MS ? Negative ? ng/mL ??Cutoff: 10 ??2-Hydroxy Ethyl Flurazepa m by LC-MS/MS ? Negative ? ng/mL ??Cutoff: 10 ??Lorazepam by LC-MS/MS ?Negative ? ng/mL ??Cutoff: 10 ??Prazepam by LC-MS/MS ? Negative ? ng/mL ??Cutoff: 10 ??Triazolam by LC-MS/MS ?Negative ? ng/mL ??Cutoff: 10 ??Alpha-Hydroxy Triazolam b y LC-MS/MS ?Negative ? ng/mL ??Cutoff: 10 ??Zolpidem by LC-MS/MS ? Negative ? ng/mL ??Cutoff: 10 ??Zolpidem Ekoiex-5-Tfonjpd lic acid by LC- ? Negative ? ng/mL ??Cutoff: 10 ?MS/MS ??Benzodiazepines Interpretation ? Posit vania. ? ADDITIONAL INFORMATION ------ ?This report is intended for use in clinical monitoring and ?management of patients. ??It is not intended for use i n ?employment-related testing. ?This test was developed and its performance characteri stics ?determined by [facility] in a manner consistent with CLIA ?requirements. This test has not been cleared or approv ed by ?the U.S. Food and Drug Administration. ?Test Performed by: ?[facility] ?[address] [place] [address] ?[employer]: Jose Martinez M.D. Ph.D.; CLIA# [id number] Specimen Anatomical Collection Method Collection Time Receive d Time (Source) Location / / Volume Laterality Urine Urine / Unknown 04/26/2021 9:40 PM 2020 EDT 10:25 AM EDT Resulting Agency Comment Spec In Lab Justin Brown MD URINE ORDERABLES Performing Organization Address City/State/[place] [address] (ABNORMAL) Rapid Drug Screen w/ Confirmation, Urine (04/26/2021 9:40 PM EDT) [facility] Method Time Signature U Barbiturates None None [facility] Screen Detected [facility] Comment: The barbiturate screen detects barbitura [...] Benzodiazepines Screen Presumptive Pos (A) None Detected [facility] Comment: The benzodiazepines screen detects [...] U Cocaine Screen None Detected None Detected [facility] Comment: The cocaine metabolites screen [...] Opiate Screen None Detected None Detected [facility] Comment: The opiates screen detects opiates at co ncentrations >300 ng/mL. Please note that oxycodone, oxymorphone, fentanyl, tramadol, and other synthetic opioids are not detected by [facility] opiate screen. A ? Presumptive Positive? result indicates that the screening result was positive but has not yet been confirmed by a highly-specific method. As with any screen, occasional false positive re sults from cross-reacting substances may occur. Not for Medico-Legal Purposes. U Cannabinoid Screen None Detected None Detected Ren [facility] Comment: The marijuana metabolites screen detects the THC metabolite (81-aps-3-carboxy-delta 9-THC) at concen trations >20 ng/mL. A ? Presumptive Positive? result indicates that the screening result was positive but has not yet been confirmed by a highly-specific method. As with any screen, occasional false positive re sults from cross-reacting substances may occur. Not for Medico-Legal Purposes. U Oxycodone Screen None Detected None Detected [facility] Comment: The oxycodone screen detects oxycodone a nd oxymorphone at concentrations >100 ng/mL. A ? Presumptive Positive? result indicates that the screening result was positive but has not yet been confirmed by a highly-specific method. As with any screen, occasional false positive re sults from cross-reacting substances may occur. Not for Medico-Legal Purposes. U Buprenorphine Screen None Detected None Detected [facility] Comment: The buprenorphine screen detects bupreno rphine at concentrations >5 ng/mL. A ? Presumptive Positive? result indicates that the screening result was positive but has not yet been confirmed by a highly-specific method. As with any screen, occasional false positive re sults from cross-reacting substances may occur. Not for Medico-Legal Purposes. U Fentanyl Screen Presumptive Pos (A) None Detected [facility] Comment: The fentanyl screen detects fentanyl at concentrations >2 ng/mL. A ? Presumptive Positive? result indicates that the screening result was positive but has not yet been confirmed by a highly-specific method. As with any screen, occasional false positive re sults from cross-reacting substances may occur. Not for Medico-Legal Purposes. U Tricyclics Screen None Detected None Detected [facility] Comment: The tricyclics screen detects [...] U Ethanol Screen None Detected None Detected [facility] Comment: This urine ethanol assay detect s ethanol at concentrations >/= 100 mg/L. U Amphetamines Screen None Detected None Detected [facility] Comment: The amphetamine screen detects d-ampheta mine and d-methamphetamine at concentrations >300 ng/mL. A ? Presumptive Positive? result indicates that the screening result was positive but has not yet been confirmed by a highly-specific method. As with any screen, occasional false positive re sults from cross-reacting substances may occur. Not for Medico-Legal Purposes. U Adulterants Screen None Detected None Detected Ren [facility] Comment: No adulteration or dilution of this urin e sample was detected. All urine samples submitted for urine drugs of abu se analysis are tested for creatinine concentration, pH, and for the presence of oxidants, nitrites, and chromate. Specimen Anatomical Collection Method Collection Time Receive d Time (Source) Location / / Volume Laterality Urine Urine / Unknown 04/26/2021 9:40 PM 2020 EDT 11:45 PM EDT Resulting Agency Comment Spec In Lab Justin Brown MD CHEMISTRY ORDERABLES Performing Organization Address City/State/[place] [address] Rapid Drug Screen, Urine (MEGHNA Request) (04/26/2021 9:40 PM EDT) [facility] Method Time Signature MEGHNA Conf Yes [facility] LABORATORY MEGHNA Requested See Comment [facility] Comment: Refer to Rapid Drug Screen w/ C onfirmation, Urine for results. Specimen Anatomical Collection Method Collection Time Receive d Time (Source) Location / / Volume Laterality Urine Urine / Unknown 04/26/2021 9:40 PM 2020 EDT 11:45 PM EDT Resulting Agency Comment Spec In Lab Justin Brown MD URINE ORDERABLES Performing Organization Address City/[facility]/ZIP Code Phon e Number [address] [facility] [place] (04/26/2021 9:40 PM EDT) athologist Signature TSH 0.57 0.27 - 4.20 [facility] mcIU/mL [facility] Comment: Reference Interval (mcIU/mL): Females: ??First Trimester: 0.23-3.88 ??Second Trimester: 0.22-3.90 ??Third Trimester: 0.44-4.66 Specimen Anatomical Collection Method Collection Time Receive d Time (Source) Location / / Volume Laterality Blood Venous Draw / 04/26/2021 9:40 PM 04/26/20 21 Unknown EDT 10:08 PM EDT Resulting Agency Comment Spec In Lab Justin Brown MD CHEMISTRY ORDERABLES Performing Organization Address City/[facility]/ZIP Code Phon e Number [address] Urine Hold (04/26/2021 9:40 PM EDT) athologist Signature Urine Hold Sample in [facility]. [facility] Specimen Anatomical Collection Method Collection Time Receive d Time (Source) Location / / Volume Laterality Urine Urine / Unknown 04/26/2021 9:40 PM 2020 EDT 10:14 PM EDT Justin Brown MD URINE ORDERABLES Performing Organization Address City/[facility]/[place] [address] C1 Esterase Inhibitor, Functional (04/26/2021 9:40 PM EDT) athologist Signature C1 Suze Inh 90 % normal [facility] Comment: REFERENCE VALUE------ >67 (Normal) 41-67 (Equivocal) <41 (Abnormal) Test Performed by: [place] [address] [employer]: Jose Martinez M.D. Ph. D.; CLIA# [id number] Specimen Anatomical Collection Method Collection Time Receive d Time (Source) Location / / Volume Laterality Blood 04/26/2021 9:40 PM 9:44 EDT AM EDT Resulting Agency Comment Spec In Lab Ludin Peraza MD CHEMISTRY ORDERABLES Performing Organization Address City/State/ZIP Code Phon e Number [address] C1q Complement (04/26/2021 9:40 PM EDT) athologist Signature Complement C1q 18 12 - 22 JOSH MANDO mg/dL [facility] Comment: ADDITIONAL INFORMATIO N This test was developed and its performa nce characteristics determined by [facility] in a manner co nsistent with CLIA requirements. This test has not bee n cleared or approved by the U.S. Food and Drug Admin istration. Test Performed by: [facility] [place] [address] [employer]: Jose Martinez M.D. Ph. D.; CLIA# [id number] Specimen Anatomical Collection Method Collection Time Receive d Time (Source) Location / / Volume Laterality Blood 04/26/2021 9:40 PM 9:25 EDT AM EDT Resulting Agency Comment Spec In Lab Ludin Peraza MD CHEMISTRY ORDERABLES Performing Organization Address City/State/ZIP Code Phon e Number [address] C4 Complement (04/26/2021 9:40 PM EDT) P athologist Signature C4 Complement 24 10 - 40 JOSH MANDO mg/dL [facility] Specimen Anatomical Collection Method Collection Time Receive d Time (Source) Location / / Volume Laterality Blood 04/26/2021 9:40 PM EDT 10:08 PM EDT Resulting Agency Comment Spec In Lab Ludin Peraza MD CHEMISTRY ORDERABLES Performing Organization Address City/[facility]/ZIP Code Phon e Number [address] Urinalysis without microscopic (04/26/2021 9:40 PM EDT) [facility] gist Method Time Signature Glucose UA Negative Negative [facility] Protein UA Negative Negative [facility] mg/dL [facility] Bilirubin UA Negative Negative [facility] mg/dL [facility] Comment: Clinical correlation required for positi ve Urine Bilirubin results as false positive may occur with some drugs and d rug related products. If a false positive is suspected a serum total bili villaseñor should be considered if clinically indicated. Urobilinogen UA Normal Normal mg/dL [facility] pH UA 7.5 5.0 - 8.0 [facility] Blood UA Negative Negative mg/dL [facility] Ketones UA Negative Negative mg/dL [facility] Nitrite UA Negative Negative [facility] Leukocytes UA Negative Negative [facility] LABORATORY Appearance UA Clear Clear [facility] Spec [place] UA 1.010 1.005 - 1.030 [facility] Color UA Yellow Yellow [facility] Specimen Anatomical Collection Method Collection Time Receive d Time (Source) Location / / Volume Laterality Urine 04/26/2021 9:40 PM EDT 10:00 PM EDT Resulting Agency Comment Spec In Lab Beck Sanz MD URINE ORDERABLES Performing Organization Address City/[facility]/ZIP Code Phon e Number [address] XR Abdomen 1 view (Generic) (04/26/2021 9:03 PM EDT) Anatomical Region Laterality Modality Abdomen N/A Digital Radiography Specimen (Source) Anatomical Location Collection Method / Collectio n Time Received Time / Laterality Volume Impressions 04/26/2021 9:10 PM EDT FINDINGS/IMPRESSION: AP chest: ET tube is present with its ti p approximately 6.0 cm above the maia. Enteric tube is seen coursing through th e esophagus with tip not included in the qchgv-vs-pwob. Relatively low lung volum es with bibasilar atelectasis, particularly at the left lung base. Retr ocardiac opacity is noted as well. These findings suggest combination of aspirati on and atelectasis. There is mild pulmonary vascular congestion without in terstitial edema. No sizable pleural effusion or pneumothorax. Normal cardiom ediastinal silhouette accounting for the portable technique. No acute osseous abn ormality. AP abdomen: Enteric tube is present with its tip in the GE junction and sidehole in the distal esophagus. Recommend at le ast 6 to 7 cm advancement. Thank you for letting us participate in the care of this patient. ??If you are a health care provider and have any questi ons regarding this report, please contact the number below. ??For patients who have questions please contact the health rn progressive care that requested your imaging first. ? Electronically signed by: Sona Haji MD, [facility] ([phone]), at 04/26/2021 9:10 PM Narrative 04/26/2021 9:10 PM EDT EXAMINATION: XR CHEST ONE VIEW, XR ABDOMEN 1 VIEW (GENERIC) CLINICAL HISTORY: angioedema s/p intubat ion TECHNIQUE: AP portable chest and abdomin al radiographs are provided for review. COMPARISON: Chest radiograph dated 2017 Procedure Note Sona Haji MD - 04/26/2021Formatt ing of this note might be different from the original. EXAMINATION: XR CHEST ONE VIEW, XR ABDOM EN 1 VIEW (GENERIC) CLINICAL HISTORY: angioedema s/p intubat ion TECHNIQUE: AP portable chest and abdomin al radiographs are provided for review. COMPARISON: Chest radiograph dated 2017 IMPRESSION FINDINGS/IMPRESSION: AP chest: ET tube is present with its ti p approximately 6.0 cm above the maia. Enteric tube is seen coursing through th e esophagus with tip not included in the rmgqw-cp-noat. Relatively low lung volum es with bibasilar atelectasis, particularly at the left lung base. Retr ocardiac opacity is noted as well. These findings suggest combination of aspirati on and atelectasis. There is mild pulmonary vascular congestion without in terstitial edema. No sizable pleural effusion or pneumothorax. Normal cardiom ediastinal silhouette accounting for the portable technique. No acute osseous abn ormality. AP abdomen: Enteric tube is present with its tip in the GE junction and sidehole in the distal esophagus. Recommend at ast 6 to 7 cm advancement. Thank you for letting us participate in the care of this patient. If you are a health care provider and have any questi ons regarding this report, please contact the number below. For patients w ho have questions please contact the health rn progressive care that requested your imaging first. Beck Sanz MD IMG DX ORDERABLES XR Chest One View (04/26/2021 9:03 PM EDT) Anatomical Region Laterality Modality Chest N/A Digital Radiography Specimen (Source) Anatomical Location Collection Method / Collectio n Time Received Time / Laterality Volume Impressions 04/26/2021 9:10 PM EDT FINDINGS/IMPRESSION: AP chest: ET tube is present with its ti p approximately 6.0 cm above the maia. Enteric tube is seen coursing through th e esophagus with tip not included in the [id number]-ys-[id number]. Relatively low lung volum es with bibasilar atelectasis, particularly at the left lung base. Retr ocardiac opacity is noted as well. These findings suggest combination of aspirati on and atelectasis. There is mild pulmonary vascular congestion without in terstitial edema. No sizable pleural effusion or pneumothorax. Normal cardiom ediastinal silhouette accounting for the portable technique. No acute osseous abn ormality. AP abdomen: Enteric tube is present with its tip in the GE junction and sidehole in the distal esophagus. Recommend at le ast 6 to 7 cm advancement. Thank you for letting us participate in the care of this patient. ??If you are a health care provider and have any questi ons regarding this report, please contact the number below. ??For patients who have questions please contact the health rn progressive care that requested your imaging first. ? Electronically signed by: Sona Haji MD, [facility] ([phone]), at 04/26/2021 9:10 PM Narrative 04/26/2021 9:10 PM EDT EXAMINATION: XR CHEST ONE VIEW, XR ABDOMEN 1 VIEW (GENERIC) CLINICAL HISTORY: angioedema s/p intubat ion TECHNIQUE: AP portable chest and abdomin al radiographs are provided for review. COMPARISON: Chest radiograph dated 2017 Procedure Note Sona Haji MD - 04/26/2021Formatt ing of this note might be different from the original. EXAMINATION: XR CHEST ONE VIEW, XR ABDOM EN 1 VIEW (GENERIC) CLINICAL HISTORY: angioedema s/p intubat ion TECHNIQUE: AP portable chest and abdomin al radiographs are provided for review. COMPARISON: Chest radiograph dated 2017 IMPRESSION FINDINGS/IMPRESSION: AP chest: ET tube is present with its ti p approximately 6.0 cm above the maia. Enteric tube is seen coursing through th e esophagus with tip not included in the [id number]-gcnv. Relatively low lung volum es with bibasilar atelectasis, particularly at the left lung base. Retr ocardiac opacity is noted as well. These findings suggest combination of aspirati on and atelectasis. There is mild pulmonary vascular congestion without in terstitial edema. No sizable pleural effusion or pneumothorax. Normal cardiom ediastinal silhouette accounting for the portable technique. No acute osseous abn ormality. AP abdomen: Enteric tube is present with its tip in the GE junction and sidehole in the distal esophagus. Recommend at ast 6 to 7 cm advancement. Thank you for letting us participate in the care of this patient. If you are a health care provider and have any questi ons regarding this report, please contact the number below. For patients w ho have questions please contact the health rn progressive care that requested your imaging first. Beck Sanz MD IMG DX ORDERABLES Sedimentation rate (04/26/2021 7:55 PM EDT) athologist Signature Sed Rate <3 2 - 28 [facility] mm/hr [facility] Comment: Effective July 11, 2019 new capillar y photometric technology has resulted in a change in reference ranges. It is r ecommended that each ESR result be reviewed with its own age appropriate re ference range. Specimen Anatomical Collection Method Collection Time Receive d Time (Source) Location / / Volume Laterality Blood Venous Draw / 04/26/2021 7:55 PM 04/26/20 21 8:03 Unknown EDT PM EDT Resulting Agency Comment Spec In Lab Justin Brown MD HEMATOLOGY ORDERABLES Performing Organization Address City/[facility]/[place] [address] CRP, acute inflammation (04/26/2021 7:55 PM EDT) athologist Signature CRP <3.0 <=4.9 mg/L [facility] Specimen Anatomical Collection Method Collection Time Receive d Time (Source) Location / / Volume Laterality Blood Venous Draw / 04/26/2021 7:55 PM 04/26/20 21 8:06 Unknown EDT PM EDT Resulting Agency Comment Spec In Lab Justin Brown MD CHEMISTRY ORDERABLES Performing Organization Address City/[facility]/ZIP [facility] Phon e Number [place] [id number] (ABNORMAL) Differential, Automated (04/26/2021 7:55 PM EDT) [facility] Method Time Signature Neutrophils % 86.8 % [facility] Neutr Abs (ANC) 6.20 (H) 1.70 - [facility] 6.10 [facility] x10(3)/[facility] L LABORATORY Lymphocytes % 10.1 % [facility] Lymphocytes Abs 0.7 (L) 0.9 - 3.2 [facility] x10(3)/[facility] LABORATORY Monocytes % 1.1 % [facility] Monocyte Abs 0.1 (L) 0.3 - 0.9 [facility] x10(3)/[facility] LABORATORY Eosinophils % 0.6 % [facility] Eosinophils Abs 0.0 0.0 - 0.4 [facility] x10(3)/[facility] LABORATORY Basophils % 0.4 % [facility] Basophils Abs 0.0 0.0 - 0.1 [facility] x10(3)/[facility] LABORATORY Immature Gran % 1.00 % [facility] Comment: Immature granulocytes(IG's)percentage an d absolute count will include metamyelocytes, myelocytes, and promyelo cytes. Blood smears from CBCs yielding IG's will be scanned manually for concor dance. If this scan disagrees with the automated IG or if promyelocytes are not ed, a manual differential will be performed. Gemini Gran Abs 0.07 (H) 0.00 - 0.04 x10(3)/[facility] LABORATORY Specimen Anatomical Collection Method Collection Time Receive d Time (Source) Location / / Volume Laterality Blood 04/26/2021 7:55 PM 8:03 EDT PM EDT Resulting Agency Comment Spec In Lab Justin Brown MD HEMATOLOGY ORDERABLES Performing Organization Address City/State/[place] [address] [facility] [address]ORY Drive Hemogram (04/26/2021 7:55 PM EDT) athologist Signature WBC 7.1 4.0 - 9.5 [facility] x10(3)/[facility] LABORATORY RBC 4.84 4.58 - [facility] 5.54 [facility] x10(6)/[facility] LABORATORY Hemoglobin 15.4 13.7 - [facility] 16.[facility] g/dL [facility] LABORATORY Hematocrit 44.1 40.5 - JOSH MANDO 48.5 % [facility] LABORATORY MCV 91.1 82.9 - [facility] 93.1 [facility] LABORATORY MCH 31.8 27.5 - [facility] 32.1 pg [facility] LABORATORY MCHC 34.9 32.0 - [facility] 35.[facility] g/dL [facility] LABORATORY Platelets 215 145 - 357 [facility] x10(3)/[facility] LABORATORY RDWSD 38.9 36.0 - [facility] 45.0 [facility] LABORATORY RDWCV 11.6 11.4 - [facility] 13.8 % [facility] LABORATORY MPV 9.4 7.6 - 12.9 [facility] LABORATORY nRBC % Auto 0.0 % [facility] nRBC Abs Auto 0.000 0.000 - [facility] 0.000 [facility] x10(3)/[facility] LABORATORY Specimen Anatomical Collection Method Collection Time Receive d Time (Source) Location / / Volume Laterality Blood 04/26/2021 7:55 PM 8:03 EDT PM EDT Resulting Agency Comment Spec In Lab Justin Brown MD HEMATOLOGY ORDERABLES Performing Organization Address City/State/[place] [address] CK (04/26/2021 7:55 PM EDT) athologist [facility] CK, Total 75 0 - 200 [facility] unit/L [facility] LABORATORY Specimen Anatomical Collection Method Collection Time Receive d Time (Source) Location / / Volume Laterality Blood 04/26/2021 7:55 PM 8:03 EDT PM EDT Resulting Agency Comment Spec In Lab Beck Sanz MD CHEMISTRY ORDERABLES Performing Organization Address City/[facility]/ZIP Code Phon e Number [address] Triglyceride (04/26/2021 7:55 PM EDT) athologist Signature Triglycerides 104 mg/dL [facility] Comment: Average Risk/Lower Risk: <150 mg/dL Borderline High Risk: 150-199 mg/dL High Risk: 200-499 mg/dL Very High Risk: >mu=821 mg/dL Specimen Anatomical Collection Method Collection Time Receive d Time (Source) Location / / Volume Laterality Blood 04/26/2021 7:55 PM 8:03 EDT PM EDT Resulting Agency Comment Spec In Lab Beck Sanz MD CHEMISTRY ORDERABLES Performing Organization Address [facility]/[place] [address] (ABNORMAL) CMP w/fasting Glucose (04/26/2021 7:55 PM EDT) athologist Signature Glucose 151 (H) 65 - 99 [facility] Fasting mg/dL [facility] Comment: ?Fasting* Glucose Interpretive C riteria Normal ?65-99 mg/dL Impaired Fasting glucose ?100-125 mg/dL Consistent with Diabetes Mellitus ? >or= 126 mg/dL *Fasting is defined as no caloric intake for at least 8 hours In the absence of unequivocal hypergly cemia a plasma glucose value of >or= 126 mg/dL should be repeated on a subseq u day. Diagnosis and Classification of Diabetes Mellitus, Position Statement from the [place] [employer]. ??Diabete s Care, Volume 33, Supplement 1, Aug 2009 BUN 16 10 - 20 mg/dL [facility] LABORATORY Creatinine 0.71 (L) 0.80 - 1.50 mg/dL [facility] LABORATORY Sodium 140 135 - 145 mmol/L [facility] Potassium 3.8 3.5 - 5.0 mmol/L [facility] Comment: Please note: ??Patients with WBC >100,00 0 may have falsely elevated Potassium levels. ??For accurate Potassium quantif ication in these patients send serum separator tube (gold top) for subsequent determinations. ??Contact the Clinical Chemistry Laboratory if there are any qu estions. Chloride 106 98 - 107 mmol/L [facility] CO2 26 22 - 31 mmol/L [facility] Anion Gap 8 5 - 15 mmol/L [facility]ORY Calcium 9.4 8.5 - 10.5 mg/dL [facility] Total Protein 6.4 6.1 - 8.0 g/dL [facility] Albumin 4.2 3.2 - 5.2 g/dL [facility] AST 19 0 - 39 unit/L [facility] ALT 28 0 - 55 unit/L [facility] LAB[facility]ORY Alk Phos 53 40 - 130 unit/L [facility] Total Bilirubin 0.3 0.2 - 1.3 mg/dL [facility] LABORATORY Estimated GFR 127 >=60 mL/min/1.73 m?? [facility] Comment: This patient? s estimated glomerular filtration rate (eGFR) is between 127 mL/min/1.73 m2 (patients with less muscl e mass per kg body weight) and 147 mL/min/1.73 m2 (patients with more muscl e mass per kg body weight) as determined by the CKD-EPI equation. Asse ssment of eGFR is not appropriate when creatinine concentrations are rapidly ch anging. For clinical decisions where creatinine clearance will affect therapy , a 24-hour urine creatinine clearance may be advised. Assignment of CKD stage 1 - 5 for patien ts with an eGFR near the transition point between stages may be based on cli nical assessment of muscle mass and symptoms in addition to eGFR. Specimen Anatomical Collection Method Collection Time Receive d Time (Source) Location / / Volume Laterality Blood 04/26/2021 7:55 PM 09/26/202 1 8:03 EDT PM EDT Resulting Agency Comment Spec In Lab Beck Sanz MD CHEMISTRY ORDERABLES Performing Organization Address City/[facility]/ZIP Code Phon e Number [address] Phosphorus (04/26/2021 7:55 PM EDT) P athologist Signature Phosphorus 3.9 2.5 - 4.5 [facility] MANDO mg/dL [facility] LABORATORY Specimen Anatomical Collection Method Collection Time Receive d Time (Source) Location / / Volume Laterality Blood 04/26/2021 7:55 PM 1 8:03 EDT PM EDT Resulting Agency Comment Spec In Lab Beck Sanz MD CHEMISTRY ORDERABLES Performing Organization Address City/[facility]/[place] [address] Magnesium (04/26/2021 7:55 PM EDT) P athologist Signature Magnesium 1.00 0.69 - 1.07 [facility] mmol/L [facility]ORY Specimen Anatomical Collection Method Collection Time Receive d Time (Source) Location / / Volume Laterality Blood 04/26/2021 7:55 PM 1 8:03 EDT PM EDT Resulting Agency Comment Spec In Lab Beck Sanz MD CHEMISTRY ORDERABLES Performing Organization Address City/[facility]/[place] [address] APTT (04/26/2021 7:55 PM EDT) P athologist Signature PTT 33 25 - 37 sec [facility] Comment: The PTT is NOT appropriate for heparin m onitoring. Use the Anti-Xa level for heparin monitoring (HEP UFH) or LMWH mon itoring (HEP LMW). A PTT less than 37 seconds generally indicates adequate hem ostasis. Specimen Anatomical Collection Method Collection Time Receive d Time (Source) Location / / Volume Laterality Blood 04/26/2021 7:55 PM 1 8:03 EDT PM EDT Resulting Agency Comment Spec In Lab Beck Sanz MD HEMATOLOGY ORDERABLES Performing Organization Address City/[facility]/[place] [address] Prothrombin Time (04/26/2021 7:55 PM EDT) athologist Signature PT 11.7 9.4 - 12.5 [facility] LABORATORY INR 1.0 [facility] Comment: An INR <2.0 indicates [...] (Source) Location / / Volume Laterality Blood 04/26/2021 7:55 PM 8:03 EDT PM EDT Resulting Agency Comment Spec In Lab Beck Sanz MD HEMATOLOGY ORDERABLES Performing Organization Address City/[facility]/[place] [address] POCT Glucose (04/26/2021 7:54 PM EDT) athologist Signature POC Glucose 143 65 - 199 [facility] mg/dL [facility] Comment: Supplemental ranges: <140 mg/dL before meals <180 mg/dL all other times of the day Specimen Anatomical Collection Method Collection Time Receive d Time (Source) Location / / Volume Laterality Blood 04/26/2021 7:54 PM 7:54 EDT PM EDT Beck Sanz MD POINT OF CARE TEST ORDERABLE S Performing Organization Address City/[facility]/[place] [address] (ABNORMAL) BLOOD GAS 2 VENOUS (04/26/2021 7:53 PM EDT) athologist Signature pH Honorio 7.34 7.32 - [facility] 7.42 [facility] LABORATORY pCO2 Honorio 47 41 - 51 [facility] LABORATORY pO2 Honorio 77 (H) 25 - 40 [facility] LABORATORY HCO3 Honorio 25.1 mmol/L [facility] BE Honorio -0.6 mmol/L [facility] Hgb Blood Gas 16.2 13.7 - [facility] 16.5 g/dL [facility] O2HB Honorio 92.2 % [facility] COHB Honorio 2.6 % [facility] Comment: Nonsmokers: 0.5-1.5% COHB Smokers: Variable, but usually less than 10% Toxic: 20-30% COHB Lethal: Greater than 60% COHB METHB Honorio 0.3 <=1.5 % [facility] LABORATORY Na Whole Blood 141 135 - 145 mmol/L [facility] K Whole Blood 3.8 3.5 - 5.0 mmol/L [facility] Comment: Please note: Patients with WBC >100,000 may have falsely elevated Potassium levels. Contact the Clinical Chemistry L aboratory if there are any questions. ICa Whole Blood 1.22 1.15 - 1.33 mmol/L [facility] Comment: Note: ??Total bilirubin higher than 20 m g/dL may lead to falsely low ionized calcium. CL Whole Blood 105 98 - 107 mmol/L [facility] Gluc Whole Bld 153 65 - 199 mg/dL [facility] LABOR[facility] Comment: Diabetes: >=200 mg/dL plus symp toms Lactate WB 1.6 0.5 - 2.2 mmol/L [facility] LABORATORY FIO2 Honorio 45 % [facility] LABORATORY BGas Source Venous [facility] LABORATORY Specimen Anatomical Collection Method Collection Time Receive d Time (Source) Location / / Volume Laterality Blood 04/26/2021 7:53 PM 7:53 EDT PM EDT Beck Sanz MD CHEMISTRY ORDERABLES Performing Organization Address City/State/[place] [address] documented in this encounter Visit Diagnoses Diagnosis Chest pain, unspecified type Angioedema Angioneurotic edema not elsewhere classi fied documented in this encounter Admitting Diagnoses Diagnosis Angioedema Angioneurotic edema not elsewhere classi fied documented in this encounter Administered Medications Inactive Administered Medications - up to 3 most recent administrations Medication Order MAR Action Action Date Dose Rate Site acetaminophen (Tylenol) (32.02 Given 04/27/2021 2:21 PM EDT 1,00 0 mg mg/mL) oral liquid 1,000 mg 1,000 mg, Oral, EVERY 8 HOURS SCHEDULED, First dose on 04/26/21 at 2200, Until Discontinued, May give PO or Per Tube, Maximum dose of acetaminophen is 4000 mg from all sources in 24 hours. When ordered for pain, acetaminophen should be given even when other ordered pain medications are indicated., Routine acetaminophen (Tylenol) suppository 975 mg 975 mg, Rectal, EVERY 8 HOURS SCHEDULED, First dose on 04/26/21 at 2200, Until Discontinued, Maximum dose of acetaminophen is 4000 mg from all sources in 24 hours. When ordered for pain, acetaminop hen should be given even when other ordered pain medications are indicated., Routine acetaminophen (Tylenol) tablet 1,000 mg 1,000 mg, Oral, EVERY 8 HOURS SCHEDULED, First dose on 04/26/21 at 2200, Until Discontinued, May give PO or Per Tube, Maximum dose of acetaminophen is 4000 mg from all sources in 24 hours. When order ed for pain, acetaminophen should be given even when other ordered pain medications are indicated ., Routine chlorhexidine (Peridex) 0.12 % oral solution Given 9:16 AM EDT 15 mLs 15 mL 15 mL, Oral, 2 TIMES DAILY, First dose on 04/26/21 at 2100, Until Discontinued, Swab oral cavity. Ventilator-associated pneumonia prophylaxis, Routine Given 04/26/2021 9:58 PM EDT 15 mLs dexmedetomidine (Precedex) (4 New Bag 04/26/2021 8:10 PM EDT 0.4 m cg/kg/hr mcg/mL) in sodium chloride 0.9% 100 mL infusion 0-1.7 mcg/kg/hr, Intravenous, CONTINUOUS, Starting on 04/26/21 at 2044, Until 04/26/21 at 2022, Titrate to sedation level of RASS Goal (-)1 to 0 . Start at 0.4 mcg/kg/hr, adjust by 0.4 mcg/kg/hr every 15 minutes. Once stable, reassess patient every 30 minutes. Rate not to exceed 1.7 mcg/kg/hr. Change rate only after assessing and documenting RASS. Reassess sedation scores within 30 minutes after every rate change. If under sedated, increase rate by 0.4 mcg/kg/hr. If over sedated, hold sedative until target RASS (-)1 to 0 achieved and then restart at 50% of previous rate. Call switch house operator if goal not achieved at maximum rate. If SAT is ordered and if patient meets criteria for Spontaneous Awakening Trial, titrate per protocol. dexmedetomidine (Precedex) New Bag 04/27/2021 6:44 AM EDT 0.4 mcg/kg/hr 9.8 mL/hr (4 mcg/mL) in sodium chloride 0.9% 100 mL infusion 0-1.7 mcg/kg/hr ? 98.2 kg (0-41.735 mL/hr, rounded to 0-41.7 mL/hr), Intravenous, CONTINUOUS, Starting on 04/26/21 at 2115, Until Tu04/28/21 at 1337, Titrate to sedation level of RASS Goal (-)1 to 0 . Start at 0.4 mcg/kg/hr, adjust by 0.4 mcg/kg/hr every 15 minutes. Once stable, reassess patient every 30 minutes. Rate not to exceed 1.7 mcg/kg/hr. Change rate only after assessing and documenting RASS. Reassess sedation scores within 30 minutes after every rate change. If under sedated, increase rate by 0.4 mcg/kg/hr. If over sedated, hold sedative until target RASS (-)1 to 0 achieved and then restart at 50% of previous rate. Call switch house operator if goal not achieved at maximum rate. If SAT is ordered and if patient meets criteria for Spontaneous Awakening Trial, titrate per protocol. Restarted 04/27/2021 5:47 AM EDT 0.4 mcg/kg/hr 9.8 mL/hr Continued Bag 04/26/2021 8:31 PM EDT 0.4 mcg/kg/hr 9.8 mL/hr dexmedetomidine (Precedex) 400 mcg/100 m L (4 mcg/mL) infusion 1 dose, Starting on Tue04/26/21 at 2001, Until Tue04/26/21 at 2009, Citlalli Ronquillo: cabinet override diphenhydrAMINE (Benadryl) (50 mg/mL) in jection 50 mg 50 mg, Intravenous, EVERY 6 HOURS PRN, S tarting on Tue04/26/21 at 2128, Until Tue04/28/21 at 1337, Itching, increased swelling, rash,, S TAT famotidine (Pepcid) tablet 20 mg Given 04/28/2021 9:12 AM EDT 20 mg 20 mg, Oral, 2 TIMES DAILY, First dose on Tue04/26/21 at 2100, Until Discontinued, Routine Given 04/27/2021 8:36 PM EDT 20 mg fentaNYL (50 mcg/mL) bolus Bolus from Infusion 04/27/2021 11:38 AM ED T 50 mcg from infusion 25-125 mcg 25-125 mcg, Intravenous, EVERY 15 MIN PRN, Starting on Tue04/26/21 at 194, Until Tue04/27/21 at 213, Pain, Refer to infusion order for Bolus instructions. ??Reassess pain 15 minutes after bolus given., Routine Bolus from Infusion 04/27/2021 5:45 AM EDT 75 mcg Bolus from Infusion 04/27/2021 5:30 AM EDT 125 mcg fentaNYL (50 mcg/mL) bolus from Bolus from Infusion 04/26/2021 8 :32 PM EDT 50 mcg infusion 50 mcg 50 mcg, Intravenous, ONCE, 1 dose, On Tue04/26/21 at 2044, Initial bolus dose: IV once now followed by continuous infusion., Routine fentaNYL (PF) (50 mcg/mL) New Bag 04/27/2021 11:03 AM EDT 200 mcg/ hr 4 mL/hr infusion syringe 50 mL 0-400 mcg/hr (0-8 mL/hr), Intravenous, CONTINUOUS, Starting on 04/26/21 at 2044, Until Tue04/27/21 at 213, Initial infusion rate: 100 mcg/hour; ??Adjust hourly rate every 15 minutes to achieve goal. ??To titrate up, increase hourly rate by 50 mcg/hr AND bolus 50% of new hourly rate. ??To titrate down, decrease hourly rate by 50%. ??Rate not to exceed 400 mcg/hr. Pain assessment every 15 minutes initially and reassess pain 15 minutes after each bolus given. ??Pain assessment MUST be documented prior to rate change., Routine Rate/Dose Verify 04/27/2021 10:00 AM EDT 200 mcg/hr 4 mL/hr Rate/Dose Change 04/27/2021 5:30 AM EDT 200 mcg/hr 4 mL/hr heparin (porcine) (5,000 units/1 mL) Given 04/27/2021 5:47 AM ED T 5,000 Units subcutaneous injection 5,000 Units 5,000 Units, Subcutaneous, EVERY 8 HOURS SCHEDULED, First dose on Tue04/26/21 at 2200, Until Discontinued, Routine Given 04/26/2021 10:03 PM EDT 5,000 Units iohexoL (Omnipaque) (350 mg/mL) injection Given 04/27/2021 1:36 AM EDT 110 mLs solution 0-200 mL 0-200 mL, Intravenous, ONCE PRN, 1 dose, Starting on Tue04/27/21 at 0121, Until Tue04/27/21 at 0136, Per Protocol, Warning Vesicant/Irritant Medication , Radiology Contrast, Routine lidocaine (Xylocaine) 2 % viscous solution 15 Given 6:25 PM EDT 15 mLs mL 15 mL, Mucous Membrane, EVERY 4 HOURS, First dose on Tue04/27/21 at 1600, Until Discontinued, Swish and swallow, Routine nicotine (Nicoderm CQ) 21 Patch Applied 04/28/2021 9:00 AM 21 mg 07- Back Lower mg/24 hr patch 21 mg EDT (Left) 21 mg (1 patch), Transdermal, DAILY, First dose on Tue04/26/21 at 2215, Until Discontinued, Apply new patch to nonhairy, clean, dry skin on the upper body or upper outer arm; each patch should be applied to a different site , Routine Patch Applied 04/26/2021 11:41 PM EDT 21 mg 04- Shoulder (Right) nicotine (NICODERM CQ) 21 mg/24 hr patch Patch Verification Transdermal, 2 TIMES DAILY, First dose o n Tue04/27/21 at 1015, Until Discontinued, Verify nicotine 21 mg/24 hr patch nicotine (NICODERM CQ) patch REMOVAL Transdermal, DAILY, First dose on Tue at 0900, Until Discontinued, Remove nicotine 21 mg/24 hr patch PHENobarbitaL (Luminal) (130 Given 04/27/2021 8:38 PM EDT 141.7 mg 13.1 mL/hr mg/mL) injection 141.7 mg 141.7 mg (rounded from 141.48 mg = 1.8 mg/kg/dose ? 78.6 kg Waldo weight), Intravenous, at 13.1 mL/hr, EVERY 3 HOURS, 2 doses, First dose on Tue04/27/21 at 1715, Last dose on Tue04/27/21 at 2015, Administer as slow IV Push at at rate no more than 50 mg/minute. Hold for RASS Less than -1: Not fully alert, but has sustained (more than 10 seconds) awakening, with eye contact, to voice. Hold for HR Less than 60 bpm. Hold for SBP Less than 90 mmHg., Routine Given 04/27/2021 6:36 PM EDT 141.7 mg 13.1 mL/hr PHENobarbitaL (Luminal) (130 mg/mL) inje ction 141.7 mg 141.7 mg (rounded from 141.48 mg = 1.8 m g/kg/dose ? 78.6 kg Waldo weight), Intravenous, at 13.1 mL/hr, ZAIN RY 30 MIN PRN, 2 doses, Starting on Tue04/27/21 at 1315, Until T 04/28/21 at 1337, Agitation, Administer as slow IV Push at at rate no more than 50 mg/minute. Hold for RASS Less than -1: Not fully alert, but has sustained (more than 10 secon ds) awakening, with eye contact, to voice. Hold for HR Less than 60 bpm. Hold for SBP Less than 90 mmHg., Routine PHENobarbitaL (Luminal) (130 Given 04/27/2021 2:21 PM EDT 188.5 mg 17.4 mL/hr mg/mL) injection 188.5 mg 188.5 mg (rounded from 188.64 mg = 2.4 mg/kg/dose ? 78.6 kg Waldo weight), Intravenous, at 17.4 mL/hr, ONCE, 1 dose, On Tue04/27/21 at 1415, Administer as slow IV Push at at rate no more than 50 mg/minute. Hold for RASS Less than -1: Not fully alert, but has sustained (more than 10 seconds) awakening, with eye contact, to voice. Hold for HR Less than 60 bpm. Hold for SBP Less than 90 mmHg., Routine PHENobarbitaL (Luminal) tablet 16.2 mg 16.2 mg (rounded from 18.864 mg = 0.24 m g/kg/dose ? 78.6 kg Waldo weight), Oral, 2 TIMES SANDY LY, 2 doses, First dose on Tue04/29/21 at 0900, Last dose on Tue04/29/21 at 2100, Hold for RASS Less than -1: Not fully alert,but has sustained (more than 10 seconds) awakeni ng, with eye contact, to voice. Hold for HR Less than 60 bpm. Hold for SBP Less than 90 mmHg., Routine PHENobarbitaL (Luminal) tablet 40.5 mg Given 04/28/2021 5:43 AM EDT 40.5 mg 40.5 mg (rounded from 37.728 mg = 0.48 mg/kg/dose ? 78.6 kg Waldo weight), Oral, 2 TIMES DAILY, 2 doses, First dose on Tue04/28/21 at 0530, Last dose on Tue04/28/21 at 2100, Hold for RASS Less than -1: Not fully alert,but has sustained (more than 10 seconds) awakening, with eye contact, to voice. Hold for HR Less than 60 bpm. Hold for SBP Less than 90 mmHg., Routine PHENobarbitaL (Luminal) tablet 8.1 mg 8.1 mg (rounded from 9.432 mg = 0.12 mg/ kg/dose ? 78.6 kg Waldo weight), Oral, 2 TIMES SANDY LY, 2 doses, First dose on Tue04/30/21 at 0900, Last dose on Tue04/30/21 at 2100, Hold for RASS Less than -1: Not fully alert,but has sustained (more than 10 seconds) awakeni ng, with eye contact, to voice. Hold for HR Less than 60 bpm. Hold for SBP Less than 90 mmHg., Routine predniSONE (Deltasone) tablet 40 mg Given 04/28/2021 9:12 AM EDT 40 mg 40 mg, Oral, DAILY, First dose on Tue04/27/21 at 0900, Until Discontinued, Routine propofoL (Diprivan) 10 mg/mL infusion 1 dose, Starting on Tue04/26/21 at 1844, Until Tue04/26/21 at 1950, ZAIN CROCKER: ronal override propofoL (Diprivan) infusion New Bag 04/26/2021 7:50 PM EDT 100 mcg/kg/min 0-50 mcg/kg/min, Intravenous, CONTINUOUS, Starting on Tue04/26/21 at 2045, Until Tue04/26/21 at 2021, Titrate to sedation level of RASS Goal (-)1 to 0 . Start at 20 mcg/kg/min, adjust rate by 10 mcg/kg/min every 3 minutes. Once stable, reassess patient every 30 minutes. Rate not to exceed 50 mcg/kg/minute. Change rate only after assessing and documenting RASS. Reassess sedation scores within 30 minutes after every rate change. If under sedated, increase rate by 10 mcg/kg/min. If over sedated, hold sedative until target RASS (-)1 to 0 achieved and then restart at 50% of previous rate. Call switch house operator if goal not achieved at maximum rate. If SAT is ordered and if patient meets criteria for Spontaneous Awakening Trial, titrate per protocol., Routine propofoL (Diprivan) New Bag 04/27/2021 10:58 AM EDT 50 mcg/kg/min 29.5 mL/hr infusion 0-50 mcg/kg/min ? 98.2 kg (0-29.46 mL/hr, rounded to 0-29.5 mL/hr), Intravenous, CONTINUOUS, Starting on Tue04/26/21 at 2115, Until Tue04/27/21 at 2133, Titrate to sedation level of RASS Goal (-)1 to 0 . Start at 20 mcg/kg/min, adjust rate by 10 mcg/kg/min every 3 minutes. Once stable, reassess patient every 30 minutes. Rate not to exceed 50 mcg/kg/minute. Change rate only after assessing and documenting RASS. Reassess sedation scores within 30 minutes after every rate change. If under sedated, increase rate by 10 mcg/kg/min. If over sedated, hold sedative until target RASS (-)1 to 0 achieved and then restart at 50% of previous rate. Call switch house operator if goal not achieved at maximum rate. If SAT is ordered and if patient meets criteria for Spontaneous Awakening Trial, titrate per protocol., Routine New Bag 04/27/2021 8:33 AM EDT 50 mcg/kg/min 29.5 mL/hr New Bag 04/27/2021 5:47 AM EDT 50 mcg/kg/min 29.5 mL/hr thiamine (B-1) 500 mg in sodium New Bag 04/28/2021 9:13 AM EDT 500 mg 110 mL/hr chloride 0.9% 55 mL 500 mg, Intravenous, 3 TIMES DAILY, First dose on 04/26/21 at 2330, Until Discontinued, Administer over 30 Minutes, Doses of 100 mg are to be administered as IV push over 5 minutes. Doses of 200 mg or more should be mixed in 50 mL 0.9% Sodium Chloride and infused over 30 minutes. New Bag 04/27/2021 8:38 PM EDT 500 mg 110 mL/hr New Bag 04/27/2021 3:55 PM EDT 500 mg 110 mL/hr documented in this encounter Active and Recently Administered Medications Times are shown in EDT. Scheduled Medication Order 04/26/2021 04/27/2021 04/28/2021 acetaminophen (Tylenol) (32.02 mg/mL) oral liquid 1,00 0 mg(Linked Group 1) 2200 (See Alternative - Provider: Nithya Garibay RN) 0600 (See Alternative - Provider: Nithya Garibay RN)1421 (Given - Provider: Marie Jenkins RN)2200 (See Alternative - Provider: Agnieszka Fry RN) 0600 (See Alternative - Provider: Agnieszka Fry RN) 1,000 mg, Oral, EVERY 8 HOURS SCHEDULED, First dose on 04/26/21 at 2200, Until Discontinued, May give PO or Per Tube, Maximum dose of acetaminophen is 4000 mg from all sources in 24 hours. When order ed for pain, acetaminophen should be giv en even when other ordered pain medications are indicated., Routine acetaminophen (Tylenol) suppository 975 mg(Linked Grou p 1) 2200 (See Alternative - Provider: Nithya Garibay RN) 0600 (See Alternative - Provider: Estelita Garibay RN)1421 (See Alternative - Provider: Marie Jenkins RN)2200 (See Alternative - Provider: Agnieszka Fry RN) 0600 (See Alternative - Provider: Agnieszka Fry RN) 975 mg, Rectal, EVERY 8 HOURS SCHEDULED, First dose on 04/26/21 at 2200, Until Discontinued, Maximum dose of acetaminophen is 4000 mg from all sources in 24 hours. When ordered for pain, acetaminophe n should be given even when other ordere d pain medications are indicated., Routine acetaminophen (Tylenol) tablet 1,000 mg(Linked Group 1 ) 2199 (Not Given - Provider: Nithya Garibay RN - Reason: Loss of access - Comment: OGT not positioned correctly) 0600 (Hold - Provider: Nithya Garbiay RN - Reason: Loss of access)142 (See Alternative - Provider: Marie Jenkins RN)2199 (Hold - Provider: Agnieszka Fry RN - Reason: Patient/family refused) 0600 (Not Given - Provider: Agnieszka Fry RN - Reason: Patient/family refused) 1,000 mg, Oral, EVERY 8 HOURS SCHEDULED, First dose on 04/26/21 at 2200, Until Discontinued, May give PO or Per Tube, Maximum dose of acetaminophen is 4000 mg from all sources in 24 hours. When order ed for pain, acetaminophen should be giv en even when other ordered pain medications are indicated., Routine chlorhexidine (Peridex) 0.12 % oral solution 15 mL (CA NCELED) 2157 (Given - Provider: Nithya Garibay RN) 0916 (Given - Provider: Marie witt RN)2099 (Not Given - Provider: Agnieszka Fry RN - Reason: See comment - Comment: extubated) 15 mL, Oral, 2 TIMES DAILY, First dose o n 04/26/21 at 2100, Until Discontinued, Swab oral cavity. Ventilator-associated pneumonia prophylaxis, Routine famotidine (Pepcid) tablet 20 mg 2157 (Hold - Provider : Nithya Garibay RN - Reason: Loss of access) 0916 (Hold - Provider: Marie mclaughlin RN - Reason: Loss of access)2035 (Given - Provider: Agnieszka Fyr RN) 0912 (Given - Provider: Cindy Everett, ÁNGEL) 20 mg, Oral, 2 TIMES DAILY, First dose o n [place] 04/26/21 at 2100, Until Discontinued, Routine fentaNYL (50 mcg/mL) bolus from infusion 50 mcg (COMPL ETED) 2031 (Bolus from Infusion - Provider: Nithya Garibay RN) 50 mcg, Intravenous, ONCE, 1 dose, On Bird n 04/26/21 at 2045, Initial bolus dose: IV once now followed by continuous infusion., Routine heparin (porcine) (5,000 units/1 mL) subcutaneous inje ction 5,000 Units 2202 (Given - Provider: Nithya Garibay RN) 0547 (Given - Provider: Nithya Garibay RN)1429 (Not Given - Provider: Marie Jenkins RN - Reason: Patient/family refused)2032 (Not Given - Provider: Agnieszka Fry RN - Reason: Patient/family refused) 0600 (Not Given - Provider: Agnieszka kline RN - Reason: Patient/family refused) 5,000 Units, Subcutaneous, EVERY 8 HOURS SCHEDULED, First dose on [place] 04/26/21 at 2200, Until Discontinued, Routine lidocaine (Xylocaine) 2 % viscous solution 15 mL 1825 (Given - Provider: Marie Jenkins RN)2000 (Not Given - Provider: Agnieszka Fry RN - Reason: Patient/family refused) 0000 (Not Given - Provider: Agnieszka kline RN - Reason: Patient/family refused)0400 (Not Given - Provider: Agnieszka Fry RN - Reason: Patient/family refused)0800 (Not Given - Provider: Cindy Everett RN - Reason: Patient/family refused) 15 mL, Mucous Membrane, EVERY 4 HOURS, F irst dose on Tue04/27/21 at 1600, Until Discontinued, Swish and swallow, Routine 1200 (Not Given - Provider: Chance Gurrola RN - Reason: Patient/family refused) nicotine (Nicoderm CQ) 21 mg/24 hr patch 21 mg(Linked Group 2) 2341 (Patch Applied - Provider: Nithya Garibay RN) 0900 (Patch Applied - Provider: Cindy Everett RN) 21 mg (1 patch), Transdermal, DAILY, Fir st dose on Tue04/26/21 at 2215, Until Discontinued, Apply new patch to nonhairy, clean, dry skin on the upper body or upper outer arm; each patch should be applied to a different site , Routine nicotine (NICODERM CQ) 21 mg/24 hr patch Patch Verification( Linked Group 2) 1015 (Patch (dose and location) verified - Provider: Marie Jenkins RN - Comment: Right upper arm)2100 (Patch (dose and location) verified - Provider: Agnieszka Fry RN) 0900 (Patch (dose and location) verified - Provider: Cindy Everett RN) Transdermal, 2 TIMES DAILY, First dose o n Tue04/27/21 at 1015, Until Discontinued, Verify nicotine 21 mg/24 hr patch nicotine (NICODERM CQ) patch REMOVAL(Linked Group 2) 0900 (Patch Removed - Provider: Cindy Everett RN) Transdermal, DAILY, First dose on Tue at 0900, Until Discontinued, Remove nicotine 21 mg/24 hr patch PHENobarbitaL (Luminal) (130 mg/mL) injection 141.7 mg (COMP LETED) 183 (Given - Provider: Aidan Babb RN - Comment: med not available)2037 (Given - Provider: Agnieszka Fry RN) 141.7 mg (rounded from 141.48 mg = 1.8 m g/kg/dose ? 78.6 kg [place] weight), Intravenous, at 13.1 mL/hr, EVERY 3 HOURS, 2 doses, First dose on Tue04/27/21 at 1715, Last dose on Tue04/27/21 at 2015, Admin ister as slow IV Push at at rate no more than 50 mg/minute. Hold for RASS Less than -1: Not fully alert, but has sustained (more than 10 seconds) awakening, with eye contact, to voice. Hold for HR Less than 60 bpm. Hold for SBP Less than 90 mmHg., Routine PHENobarbitaL (Luminal) (130 mg/mL) injection 188.5 mg (COMP LETED) 1421 (Given - Provider: Marie Jenkins RN) 188.5 mg (rounded from 188.64 mg = 2.4 m g/kg/dose ? 78.6 kg [place] weight), Intravenous, at 17.4 mL/hr, ONCE, 1 dose, On Tue04/27/21 at 1415, Administer as slow IV Push at at rate no more than 50 mg/min [place]. Hold for RASS Less than -1: Not ful ly alert, but has sustained (more than 10 seconds) awakening, with eye contact, to voice. Hold for HR Less than 60 bpm. Hold for SBP Less than 90 mmHg., Routine PHENobarbitaL (Luminal) tablet 16.2 mg(Linked Group 3) 16.2 mg (rounded from 18.864 mg = 0.24 m g/kg/dose ? 78.6 kg [place] weight), Oral, 2 TIMES DAILY, 2 doses, First dose on Tue04/29/21 at 0900, Last dose on Tue04/29/21 at 2100, Hold for RASS Less than -1: Not fully alert,but has sustained (more than 10 seconds) awakening, with eye contact, to voice. Hold for HR Less than 60 bpm. Hold for SBP Less than 90 mmHg., Routine PHENobarbitaL (Luminal) tablet 40.5 mg(Linked Group 3) 0543 (Given - Provider: Agnieszka Fry RN) 40.5 mg (rounded from 37.728 mg = 0.48 m g/kg/dose ? 78.6 kg [place] weight), Oral, 2 TIMES DAILY, 2 doses, First dose on Tue04/28/21 at 0530, Last dose on Tue04/28/21 at 2100, Hold for RASS Less than -1: Not fully alert,but has sustained (more than 10 seconds) awakening, with eye contact, to voice. Hold for HR Less than 60 bpm. Hold for SBP Less than 90 mmHg., Routine PHENobarbitaL (Luminal) tablet 8.1 mg(Linked Group 3) 8.1 mg (rounded from 9.432 mg = 0.12 mg/ kg/dose ? 78.6 kg [place] weight), Oral, 2 TIMES DAILY, 2 doses, First dose on Tue04/30/21 at 0900, Last dose on Tue04/30/21 at 2100, Hold for RASS Less than -1: N ot fully alert,but has sustained (more t floyd 10 seconds) awakening, with eye contact, to voice. Hold for HR Less than 60 bpm. Hold for SBP Less than 90 mmHg., Routine predniSONE (Deltasone) tablet 40 mg 0916 (Hold - Provider: Marie Jenkins RN - Reason: Loss of access) 0912 (Given - Provider: Cindy Everett RN) 40 mg, Oral, DAILY, First dose on Mon at 0900, Until Discontinued, Routine thiamine (B-1) 500 mg in sodium chloride 0.9% 55 mL 0155 (New Bag - Provider: Nithya Garibay RN)0225 (Stopped - Provider: Nithya Garibay RN)0915 (New Bag - Provider: Marie Jenkins RN)0945 (Stopped - Provider: Marie Jenkins RN)1555 (New Bag - Provider: Marie Jenkins RN) 0913 (New Bag - Provider: Cindy Everett, ÁNGEL)0943 (Stopped - Provider: Cindy Everett RN) 500 mg, Intravenous, 3 TIMES DAILY, Firs t dose on Tue04/26/21 at 2330, Until Discontinued, Administer over 30 Minutes, Doses of 100 mg are to be administered as IV push over 5 minutes. Doses of 200 mg o 162 (St opped - Provider: Marie Jenkins RN)2037 (New Bag - Provider: Agnieszka Fry, ÁNGEL)2107 (Stopped - Provider: Agnieszka Fry, ÁNGEL) r more should be mixed in 50 mL 0.9% Sod ium Chloride and infused over 30 minutes. Continuous Medication Order 04/26/2021 04/27/2021 04/28/2021 dexmedetomidine (Precedex) (4 mcg/mL) in sodium chloride 0.9% 100 mL infusion (CANCELED) 2009 (New Bag - Provider: Pau Whittaker RN) 0-1.7 mcg/kg/hr, Intravenous, CONTINUOUS , Starting on Tue04/26/21 at 2044, Until Tue04/26/21 at 2022, Titrate to sedation level of RASS Goal (-)1 to 0 . Start at 0.4 mcg/kg/hr, adjust by 0.4 mcg/kg/hr e very 15 minutes. Once stable, reassess p atient every 30 minutes. Rate not to exceed 1.7 mcg/kg/hr. Change rate only after assessing and documenting RASS. Reassess sedation scores within 30 minutes after every rate change. If under sedated, in crease rate by 0.4 mcg/kg/hr. If over sedated, hold sedative until target RASS (-)1 to 0 achieved and then restart at 50% of previous rate. Call switch house operator if goal not achieved at maximum rate. If SA T is ordered and if patient meets criteria for Spontaneous Awakening Trial, titrate per protocol. dexmedetomidine (Precedex) (4 mcg/mL) in sodium chlori de 0.9% 100 mL infusion 2030 (Continued Bag - Provider: Nithya Garibay RN) 013 (Stopped - Provider: Nithya Garibya RN - Comment: paused due to bradycardia to 40)0547 (Restarted - Provider: Nithya Garibay RN)0644 (New Bag - Provider: Nithya Garibay RN)1209 (Paused - Provider: Marie Jenkins RN) 0-1.7 mcg/kg/hr ? 98.2 kg (0-41.735 mL/hr, rounded to 0-41.7 mL/hr), Intravenous, CONTINUOUS, Starting on 04/26/21 at 2115, Until Tue04/28/21 at 1337, Titrate to sedation level of RASS Goal (-)1 to 0 . Start at 0.4 mcg/kg/hr, adjust by 0. 4 mcg/kg/hr every 15 minutes. Once stable, reassess patient every 30 minutes. Rate not to exceed 1.7 mcg/kg/hr. Change rate only after assessing and documenting R ASS. Reassess sedation scores within 30 minutes after every rate change. If under sedated, increase rate by 0.4 mcg/kg/hr. If over sedated, hold sedative until target RASS (-)1 to 0 achieved and then re start at 50% of previous rate. Call hous e officer if goal not achieved at maximum rate. If SAT is ordered and if patient meets criteria for Spontaneous Awakening Trial, titrate per protocol. fentaNYL (PF) (50 mcg/mL) infusion syringe 50 mL (CAN ELED) 2015 (New Bag - Provider: Pau Whittaker RN)2199 (Rate/Dose Verify - Provider: Nithya Garibay RN) 0000 (Rate/Dose Verify - Provider: Hernandez Garibay RN)0200 (Rate/Dose Verify - Provider: Nithya Garibay RN)0400 (Rate/Dose Verify - Provider: Nithya Garibay RN)0530 (Rate/Dose Change - Provider: Nithya Garibay RN) 0-400 mcg/hr (0-8 mL/hr), Intravenous, C ONTINUOUS, Starting on 04/26/21 at 2044, Until Tue04/27/21 at 2132, Initial infusion rate: 100 mcg/hour; ??Adjust hourly rate every 15 minutes to achieve goal. 1000 (Ra te/Dose Verify - Provider: Marie Jenkins RN)1103 (New Bag - Provider: Marie Jenkins RN - Comment: verified w/ Roderick Valenzuela RN)1155 (Paused - Provider: Marie Jenkins RN) ??To titrate up, increase hourly rate b y 50 mcg/hr AND bolus 50% of new hourly rate. ??To titrate down, decrease hourly rate by 50%. ??Rate not to exceed 400 mcg/hr. Pain assessment every 15 minutes in itially and reassess pain 15 minutes aft er each bolus given. ??Pain assessment MUST be documented prior to rate change., Routine propofoL (Diprivan) infusion (CANCELED) 1949 (New Bag - Provider: Pau Whittaker RN) 0-50 mcg/kg/min, Intravenous, CONTINUOUS , Starting on Tue04/26/21 at 2044, Until Tue04/26/21 at 2021, Titrate to sedation level of RASS Goal (-)1 to 0 . Start at 20 mcg/kg/min, adjust rate by 10 mcg/kg/ min every 3 minutes. Once stable, reasse ss patient every 30 minutes. Rate not to exceed 50 mcg/kg/minute. Change rate only after assessing and documenting RASS. Reassess sedation scores within 30 minute s after every rate change. If under brandon karina, increase rate by 10 mcg/kg/min. If over sedated, hold sedative until target RASS (-)1 to 0 achieved and then restart at 50% of previous rate. Call house offi cer if goal not achieved at maximum rate . If SAT is ordered and if patient meets criteria for Spontaneous Awakening Trial, titrate per protocol., Routine propofoL (Diprivan) infusion (CANCELED) 2029 (New Bag - Provider: Nithya Garibay RN - Comment: per md at bedside. Arrived on 80)2341 (New Bag - Provider: Nithya Garibay RN) 0547 (New Bag - Provider: Nithya coronel RN)0833 (New Bag - Provider: David Underwood RN)1058 (New Bag - Provider: Marie Jenkins RN)1210 (Paused - Provider: Marie Jenkins RN) 0-50 mcg/kg/min ? 98.2 kg (0-29.46 mL/hr, rounded to 0-29.5 mL/hr), Intravenous, CONTINUOUS, Starting on 04/26/21 at 2115, Until Tue04/27/21 at 2133, Titrate to sedation level of RASS Goal (-)1 to 0 . Start at 20 mcg/kg/min, adjust rate b y 10 mcg/kg/min every 3 minutes. Once stable, reassess patient every 30 minutes. Rate not to exceed 50 mcg/kg/minute. Change rate only after assessing and documen ting RASS. Reassess sedation scores with in 30 minutes after every rate change. If under sedated, increase rate by 10 mcg/kg/min. If over sedated, hold sedative until target RASS (-)1 to 0 achieved and t hen restart at 50% of previous rate. Catracho l switch house operator if goal not achieved at maximum rate. If SAT is ordered and if patient meets criteria for Spontaneous Awakening Trial, titrate per protocol., Routine PRN Medication Order 04/26/2021 04/27/2021 04/28/2021 diphenhydrAMINE (Benadryl) (50 mg/mL) injection 50 mg 50 mg, Intravenous, EVERY 6 HOURS PRN, S tarting on 04/26/21 at 2128, Until Tu04/28/21 at 1337, Itching, increased swelling, rash,, STAT fentaNYL (50 mcg/mL) bolus from infusion 25-125 mcg (CANCELE D) 0500 (Bolus from Infusion - Provider: Nithya Garibay RN)0515 (Bolus from Infusion - Provider: Nithya Garibay RN)0530 (Bolus from Infusion - Provider: Nithya Garibay RN)0545 (Bolus from Infusion - Provider: Nithya Garibay RN) 25-125 mcg, Intravenous, EVERY 15 MIN DE N, Starting on Tue04/26/21 at 1947, Until Tue04/27/21 at 2133, Pain, Refer to infusion order for Bolus instructions. ??Reassess pain 15 minutes after bolus given., Routine 1138 (Bolus from Infusion - Provider: Marie Jenkins RN) iohexoL (Omnipaque) (350 mg/mL) injection solution 0-200 mL (COMPLETED) 0136 (Given - Provider: Amy Pérez) 0-200 mL, Intravenous, ONCE PRN, 1 dose, Starting on Tue04/27/21 at 0121, Until Tue04/27/21 at 0136, Per Protocol, Warning Vesicant/Irritant Medication , Radiology Contrast, Routine PHENobarbitaL (Luminal) (130 mg/mL) injection 141.7 mg 141.7 mg (rounded from 141.48 mg = 1.8 m g/kg/dose ? 78.6 kg [place] weight), Intravenous, at 13.1 mL/hr, EVERY 30 MIN PRN, 2 doses, Starting on Tue04/27/21 at 1315, Until Tue04/28/21 at 1337, Agitation, Administer as slow IV Push at at rate no more than 50 mg/minute. Hold for RASS Less than -1: Not fully alert, but has sustained (more than 10 seconds) awakening, with eye contact, to voice. Hold for HR Less than 60 bpm. Hold for SBP Less than 90 mmHg., Routine Linked Groups Order Group 1: acetaminophen (Tylenol) tablet 1,000 mgJump to med 1,000 mg, Oral, EVERY 8 HOURS SCHEDULED, First dose on Tue04/26/21 at 2200, Until Discontinued
May give PO or Per Tube, Maximum dose of acetaminophen is 4000 mg from all sour hung in 24 hours. When ordered for pain, acetaminophen should be given even when other ordered pain medications are indicated.
Routine Or acetaminophen (Tylenol) (32.02 mg/mL) oral liquid 1,000 mgJump to med 1,000 mg, Oral, EVERY 8 HOURS SCHEDULED, First dose on Tue04/26/21 at 2200, Until Discontinued
May give PO or Per Tube, Maximum dose of acetaminophen is 4000 mg from all sour hung in 24 hours. When ordered for pain, acetaminophen should be given even when other ordered pain medications are indicated.
Routine Or acetaminophen (Tylenol) suppository 975 mgJump to med 975 mg, Rectal, EVERY 8 HOURS SCHEDULED, First dose on Tue04/26/21 at 2200, Until Discontinued
Maximum dose of acetaminophen is 4000 mg from all sources in 24 hours. When ordered for pain, acet aminophen should be given even when othe r ordered pain medications are indicated.
Routine Group 2: nicotine (Nicoderm CQ) 21 mg/24 hr patch 21 mgJump to med 21 mg (1 patch), Transdermal, DAILY, Fir st dose on Tue04/26/21 at 2215, Until Discontinued
Apply new patch to nonhairy, clean, dry skin on the upper body or upper outer arm; each patch should be applied to a different site
Routine And nicotine (NICODERM CQ) 21 mg/24 hr patch Patch VerificationJump to med Transdermal, 2 TIMES DAILY, First dose o n Tue04/27/21 at 1015, Until Discontinued
Verify nicotine 21 mg/24 hr patch
And nicotine (NICODERM CQ) patch REMOVALJump to med Transdermal, DAILY, First dose on Tue at 0900, Until Discontinued
Remove nicotine 21 mg/24 hr patch
Group 3: PHENobarbitaL (Luminal) tablet 40.5 mgJump to med 40.5 mg (rounded from 37.728 mg = 0.48 m g/kg/dose ? 78.6 kg [place] weight), Oral, 2 TIMES DAILY, 2 doses, First dose on Tue04/28/21 at 0530, Last dose on Tue04/28/21 at 2100
Hold for RASS Less than -1: Not fully alert,but has sustain ed (more than 10 seconds) awakening, with eye contact, to voice. Hold for HR Less than 60 bpm. Hold for SBP Less than 90 mmHg.
Routine Followed by PHENobarbitaL (Luminal) tablet 16.2 mgJump to med 16.2 mg (rounded from 18.864 mg = 0.24 m g/kg/dose ? 78.6 kg [place] weight), Oral, 2 TIMES DAILY, 2 doses, First dose on Tue04/29/21 at 0900, Last dose on Tue04/29/21 at 2100
Hold for RASS Less than -1: Not fully alert,but has sustain ed (more than 10 seconds) awakening, with eye contact, to voice. Hold for HR Less than 60 bpm. Hold for SBP Less than 90 mmHg.
Routine Followed by PHENobarbitaL (Luminal) tablet 8.1 mgJump to med 8.1 mg (rounded from 9.432 mg = 0.12 mg/ kg/dose ? 78.6 kg [place] weight), Oral, 2 TIMES DAILY, 2 doses, First dose on [place] 04/30/21 at 0900, Last dose on [place] 04/30/21 at 2100
Hold for RASS Less th an -1: Not fully alert,but has sustained (more than 10 seconds) awakening, with eye contact, to voice. Hold for HR Less than 60 bpm. Hold for SBP Less than 90 mmHg.
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
--- OUTSIDE RECORDS SUMMARY | 2022-04-21 11:45 | XMS_ITS | Encounter Summary ---
:1990 [place] [address] Care Team Providers Name Role Phone None Primary Care Provider Unavailable Reason for Visit Auth/Cert Specialty Diagnoses / Procedures Referred By Contact Refer red To Contact Diagnoses Cardiac arrest intubated med misuse/covid Ximena Robles MD [facility] Procedures ER IPI [facility] [place] [address] Referral ID Status Reason Start Date Expiration Date Visits Requ ested Visits Authorized [id number] 1 1 Encounter Details Date Type Department Care Team Description 01/23/2022 Anesthesia Event Main Operating Room [facility] MD [facility] Lucretia esteb[place] [address] [place] [address] [phone] (Wo rk) Anesthesia Record Procedure Summary Procedure Name Responsible Anesthesia Start Anesthesia Stop Anesthesiologist Time Time @FASCIOTOMY,THIGH OR Brittney Tidwell MD 01/23/22 0754 0 01/23/22 1050 HIP FOR COMPARTMENT SYNDROME (WRVU 12.89) (Left Leg) Events Date Time Event Comment 01/23/2022 0719 0754 AN Verify 0754 Start 0754 An Start Data 0759 ABG Data Arterial Blood G as result: pH 7.33 pCO2 34.4 pO2 104.7 %O2 Sa t 95 FiO2 HCO3 18.1 BE -7.7 Hb 16.6 K 4.47 G lucose 179 Lactate 4.44 0808 Anesthesia Ready 0811 Quick Note Art line not tra nsferring to EDH, patient HDS, MAPV80 with reassuring waveform throughout 0824 Quick Note Bedside ultrasou nd confirms lung sliding b/l in 4 quadrants, bilateral breath sounds auscultated 0828 Procedure Start 0829 Skin Incision L leg 0837 ABG Data Arterial Blood G as result: pH 7.40 pCO2 33.2 pO2 97.2 %O2 Sat 20.3 FiO2 HCO3 20.3 BE -4.4 Hb 15.3 K 4.03 G lucose 141 Lactate 4.98 0839 Quick Note L leg 4 compartm ent fasciotomy complete 0840 Skin Incision L thigh 0857 Skin Incision Left arm fasciot esau started 0910 Skin Incision Left arm incisio n 0924 ABG Data Arterial Blood G as result: pH 7.39 pCO2 37.4 pO2 62.9 %O2 Sat 95 FiO2 62 HCO3 22.3 BE -2.6 Hb 15.3 K 4.51 G lucose 117 Lactate 4.92 0930 Skin Incision LUE fasciotomy 1019 Quick Note Surgery complete , waiting on respiratory therapy for wilder sport given P:F of ~100 and concern for COVI D ARDS 1037 an stop data 1050 Recovery or ICU Handoff Patient care was transferred to the destination unit staff after review of the patient's medica l history, current anesthetic/surgi moe status and plan, according to the Provider Handoff Checklist. 1050 Stop Name Total Midazolam 14 mg Rocuronium 100 mg Calcium Chloride 3,000 mg HYDROmorphone 2 mg/mL 2 mg Sodium Bicarbonate 8.4% 250 mEq Insulin Regular Human 2 Units ceFAZolin 2 g Ketamine 10 mg/mL 50 mg NORepinephrine INF 209 mcg Dexmedetomidine 20 mcg folic acid (Vitamin B9) (5 mg/mL) injection 1 mg 1 mg Dexmedetomidine INF 51.07 mcg Lactated Ringers 1,000 mL Normosol-R 1,000 mL Albumin (human) 5% 250 mL Agents Name O2 Air N2O Sevoflurane (et) Blood No blood administrations on file. Lines, Drains, and Airways Type Details Placement Removal Incision 01/23/22; 0829; Left, 01/23/22 0829 by lateral; calf; vertical Emma Otero RN Incision 01/23/22; 0841; Left, 01/23/22 0841 by lateral; thigh; Emma Otero, RN vertical Incision 01/23/22; 0858; Left; 01/23/22 0858 by arm (volar surface); Emma Otero, RN vertical Incision 04/27/13; jaw (inside 04/27/13 0000 by 02/09/22 1508 by mouth approach. ); Jennifer Conway RN Argiro, Matthew P, 02/09/22; 1508 RN Urethral Catheter 01/23/22; 0035; Q1-2hr 01/23/22 0035 by Kersey, 02/05/22 1759 by UOP in ICU patient ÁNGEL Wilde Victor ia H, without alternative; RN urethral catheter removed, tubing intact, other (see comments); Kavon HARTLEY; 02/05/22; 1759 CVC 3 Lumen 01/23/22; 0037; femoral 01/23/22 0037 by Kersey, 01/23/22 1806 by vein, right; 01/23/22; ÁNGEL Wilde J acob R, RN 1806 NG/OG Tube 01/23/22; 0059; [place] 01/23/22 0059 by Scot, 0245 by sump; left nostril; ÁNGEL Wilde Ayla D, RN tubing intact, provider notified; pt self removed ngt; 01/28/22; 0245 ETT ETT Type: Oral, Cuffed; 01/23/22 0116 by Escobar, 01/26/222014 by ETT Size: 8 mm; Secured Debbie Machado, [employer] [facility] at Teeth: 26 cm Nahed Mcclure, RT Arterial Line 01/23/22; 0130; radial 01/23/22 0130 by Kersey, 0 01/25/22 1514 by artery, right; ÁNGEL Wilde Lindsey A, 01/25/22; 1514 RN Rectal Tube 01/23/22; 0600; fecal 01/23/22 0600 by Salmon, 0200 by management system; ÁNGEL Delgadillo L indsay E, 01/29/22; 0200 RN CVC 3 Lumen 01/23/22; 0600; 01/23/22 0600 by Curry, 2 1230 by internal jugular vein, ÁNGEL Harvey P erri L, ÁNGEL right; lumen/catheter not patent (new lumen was changed over a wire); cathflo instilled x2, unable to pull from venous cath; 02/07/22; 1230 Incision 01/23/22; 0931; Left 01/23/22 0931 by 03/06/22 1 543 by (dorsal surface); arm; Emma Otero RN Lim anek, Lisa R, RN vertical; 03/06/22; 1543 NPWT 01/23/22; 0946; Left 01/23/22 0946 by 01/26/22 1 600 by (volar surface); arm; Emma Otero RN Zaba lla, Toan A, 01/26/22; 1600 RN NPWT 01/23/22; 0950; Left 01/23/22 0950 by 01/26/22 1 600 by (dorsal surface); arm; Emma Otero RN Zab alla, Marcos A, 01/26/22; 1600 RN NPWT 01/23/22; 1000; Left, 01/23/22 1000 by 01/26/22 1600 by lateral; thigh; Emma Otero RN Zaballa, M arcos A, 01/26/22; 1600 RN NPWT 01/23/22; 1005; Left, 01/23/22 1005 by 01/26/22 1600 by lateral; calf; Emma Otero RN Zaballa, M arcos A, 01/26/22; 1600 RN documented in this encounter Social History Tobacco [...] encounter OR Notes Anesthesia Postprocedure Evaluation - Juan Luis Milan MD - 01/23/2022 10:57 AM EDT Department of Anesthesiology Post-procedure Note Patient: Eric Packer Procedure Summary Date: 01/23/22 Room / Location: [facility] OR [facility] MAIN OR Anesthesia Start: 753 Anesthesia Stop: Procedures: @FASCIOTOMY,THIGH OR HIP FOR COMPARTMENT SYNDROME (WRVU 12.89) (Left Leg) MEDIAN NERVE DECOMPRESSION (CARPAL TUNNEL RELEASE) (WRVU 4.97) (Left Wrist) MODIFIER WOUND VAC (Left Arm) FASCIOTOMY, LOWER LEG, ALL COMPARTMENTS (WRVU 7.82) (Left Leg Lower) FASCIOTOMY; FOREARM AND\OR WRIST, FLEXOR & EXTENS. COMP (WRVU 10.79) (Left Arm Lower) Diagnosis: (Left forearm compartment syndrome) Surgeons: Sigifredo Garcia MD Responsible Provider: Brittney Tidwell MD Anesthesia Type: general ASA Status: 3 - Emergent All Anesthesia Providers: Anesthesiologist: Brittney Tidwell MD Grain Mill Worker: Juan Luis Milan MD Vitals Value Taken Time BP Temp Pulse 108 01/23/22 1056 Resp SpO2 Pain Level Vitals shown include unvalidated device data. Patient Location: ICU Level of Consciousness: Sedated (Pharmacologic/Intentional) Pain Management: Satisfactory Analgesia PONV: None Cardiovascular Status: At Baseline Respiratory Status: Intubated/Ventilated Postoperative Fluid Status: Possible Anesthetic Complications: NONE apparent at time of evaluation Final Primary Anesthesia Type: General (The anesthetic type performed was the same as planned.) Comments: Transferred to ICU care HDS off pressors and on dexmedetomidine. Anesthesia Preprocedure Evaluation - Brittney Tidwell MD - 01/23/2022 6:31 AM EDT Pre-Anesthesia Evaluation for: Eric Packer a 31 y.o. male. Procedure(s): FASCIOTOMY FOREARM WITH DEBRIDEMENT (WRVU 13.83) Patient Active Problem List Diagnosis Date Noted ??? Cardiac arrest 01/22/2022 ??? Angioedema 04/26/2021 [...] performed by Kishore Neil MD at [facility] MAIN OR Social History Tobacco Use [...] Physical Exam: Preprocedure Vitals Current as of 01/23/22 0631 BP: Pulse: 152 Resp: 25 SpO2: 99 Temp: 38.2 ??C (100.8 ??F) Height: 182.9 cm (6') (01/23/22) Weight: 101.8 kg (224 lb 6.9 oz) (01/23/22) BMI: 30.43 IBW: 77.6 kg (171 lb 1.9 oz) Last edited 01/23/22 0413 by MP Currently displaying vitals information from multiple entries within 180 minutes of most recent vitals. Airway Assessment: Mallampati: (Unable to Assess) Cardiovascular Assessment: Rate: abnormal Pulmonary Assessment: unlabored breathing Dental Assessment: Misc Assessment: IV access: Peripheral line and A-line Last Filed Perioperative Cognitive Screening None Anesthesia Plan: ASA 3 emergent general, with a(n) intravenous induction 31 y.o. male IVDU presenting with LUE compartment syndrome for fasciotomies. Presented today after cardiac arrest in setting of fentanyl use, found down, hyperkalemic to 7.8, ALTHEA, lactate >10. Resuscitation ongoing. PMHx of HTN, angioedema (unknown trigger) and polysubstance use (cocaine, EtOH and heroin) Intubated and sedated. On ~10 norepi. Plan GETA Addendum (Yaw): Chart reviewed. ICU notes indicate no pulses felt at 0320, CPK 220, 000, K >7 now 5.9. Active Covid infection. Patient at extremely high risk for perioperative morbidity. Region - Other Informed Consent: Plan discussed with resident. Anesthesia Screening documented in this encounter Plan of Treatment Upcoming Encounters Date Type Specialty Care Team Description 06/09/2022 Procedure visit Neurology Summer Wiggins MD [facility] ER NEUROLOGY DEPT [place], [place] [address] (Wo rk) Scheduled Procedures Name [...] MAR Action Action Date Dose Rate Site albumin (human) 5% 250 mL New Bag 01/23/2022 9:59 AM EDT intravenous solution Intravenous, CONTINUOUS PRN, Starting on 01/23/22 at 0959, Until 01/23/22 at 1058, Anesthesia Intra-op, Routine calcium chloride 10% (100 mg/mL) injecti on Given 01/23/2022 9:17 AM EDT 500 mg Intravenous, PRN, Starting on 01/23/22 at 0805, Until 01/23/22 at 1058, Anesthesia Intra-op, Routine Given 01/23/2022 9:13 AM EDT 500 mg Given 01/23/2022 8:37 AM EDT 500 mg ceFAZolin (Ancef) 1 g in dextrose 5% 50 mL Given 01/23/2022 8:25 AM EDT 2 g infusion Intravenous, PRN, Starting on 01/23/22 at 0825, Until 01/23/22 at 1058, Administer over 30 Minutes, Anesthesia Intra-op dexmedeTOMIDine (Precedex) (4 mcg/mL) bolus Given 01/23/2022 9:40 AM EDT 10 mcg injection (Anesthsia) Intravenous, PRN, Starting on 01/23/22 at 0940, Until 01/23/22 at 1058, Anesthesia Intra-op, Routine Given 01/23/2022 9:35 AM EDT 10 mcg dexmedeTOMIDine (Precedex) (4 New Bag 01/23/2022 10:07 0.7 mcg /kg/hr 17.815 mL/hr mcg/mL) in sodium chloride AM EDT 0.9% 50 mL infusion Intravenous, CONTINUOUS PRN, Starting on 01/23/22 at 1007, Until 01/23/22 at 1058, Anesthesia Intra-op electrolyte replacement solution (pH 7.4) New Bag 01/23/2022 7:54 AM EDT (Normosol-R, Plasmalyte-A) infusion Intravenous, CONTINUOUS PRN, Starting on 01/23/22 at 0754, Until 01/23/22 at 1058, Anesthesia Intra-op folic acid (Vitamin B9) (5 mg/mL) injection 1 Given 01/29/20 8:42 AM EDT 1 mg mg 1 mg, Intravenous, DAILY, First dose on 01/23/22 at 0900, Until Discontinued, Routine Given 01/27/2022 10:11 AM EDT 1 mg Given 01/26/2022 8:25 AM EDT 1 mg HYDROmorphone (Dilaudid) (2 mg/mL) multi-dose Given 01/24/20 8:13 AM EDT 1 mg injection solution Intravenous, PRN, Starting on 01/23/22 at 0813, Until 01/23/22 at 1058, Anesthesia Intra-op, Routine Given 01/23/2022 7:58 AM EDT 1 mg insulin regular (HumuLIN R,NovoLIN R) (100 Given 01/23/2022 8:27 AM EDT 2 Units unit/mL) injection vial Intravenous, PRN, Starting on 01/23/22 at 0827, Until 01/23/22 at 1058, Anesthesia Intra-op, Routine ketamine (Ketalar) (10 mg/mL) IV bolus Given 01/23/2022 9:11 AM EDT 50 mg injection (Anesthesia) Intravenous, PRN, Starting on 01/23/22 at 0911, Until 01/23/22 at 1058, Anesthesia Intra-op lactated ringers infusion New Bag 01/23/2022 7:54 AM EDT Intravenous, CONTINUOUS PRN, Starting on 01/23/22 at 0754, Until 01/23/22 at 1058, Anesthesia Intra-op midazolam (pf) (Versed) (1 mg/mL) multi-dose Given 10:10 AM EDT 4 mg injection Intravenous, PRN, Starting on 01/23/22 at 0758, Until 01/23/22 at 1058, Anesthesia Intra-op, Routine Given 01/23/2022 8:21 AM EDT 5 mg Given 01/23/2022 7:58 AM EDT 5 mg NORepinephrine (Levophed) (16 Rate/Dose Change 01/23/2022 10:37 1 m cg/min 3.75 mL/hr mcg/mL) in dextrose 5% 250 mL AM EDT infusion Intravenous, CONTINUOUS PRN, Starting on 01/23/22 at 0917, Until 01/23/22 at 1058, Anesthesia Intra-op, Routine Rate/Dose Change 01/23/2022 9:58 AM EDT 2 mcg/min 7.5 mL/hr Rate/Dose Change 01/23/2022 9:40 AM EDT 4 mcg/min 15 mL/hr rocuronium (Zemuron) (10 mg/mL) multi-dose Given 01/23/2022 9:01 AM EDT 50 mg injection Intravenous, PRN, Starting on 01/23/22 at 0758, Until 01/23/22 at 1058, Anesthesia Intra-op, Routine Given 01/23/2022 7:58 AM EDT 50 mg sodium bicarbonate 8.4 % (1 meq/ml) IV Given 01/23/2022 9:14 AM EDT 50 mEq solution Subcutaneous, PRN, Starting on 01/23/22 at 0805, Until 01/23/22 at 1058, Anesthesia Intra-op, Routine Given 01/23/2022 8:43 AM EDT 50 mEq Given 01/23/2022 8:28 AM EDT 50 mEq documented in this encounter Additional Health Concerns Infection Onset Date Last Indicated Resolved Time Rule Out COVID-19 01/23/2022 01/23/2022 01/23/2022 12: 15 PM EDT Rule Out Respiratory 01/23/2022 01/23/2022 01/24/2022 7:07 AM EDT documented as of this encounter Care Teams Customer Service Rep Relationship Specialty Start Date End Date None PCP - General 03/10/19 None documented as of this encounter
--- OUTSIDE RECORDS SUMMARY | 2022-04-21 11:45 | XMS_ITS | Encounter Summary ---
:1990 Author Organization [facility] [place] [address] Care Team Providers Name Role Phone Unknown Primary Care Provider Unavailable Encounter Details Date Type Department Care Team Description 04/22/2013 Orders Only Radiology Balaji Vee MD [facility] Lucretia esteban [place] [address] [place] [address] [phone] (Wo rk) Social History Tobacco Use Types Packs/Day Years Used Date Never Assessed Sex Assigned at Date Recorded Not on file documented as of this encounter Plan of Treatment Upcoming Encounters Date Type Specialty Care Team Description 06/09/2022 Procedure visit Neurology Summer Wiggins MD [facility] ER NEUROLOGY DEPT [place], [place] [address] (Wo rk) Scheduled Procedures Name Priority Associated Diagnoses Date/Time APPL SKIN SUB GRAFT HANDS, TO 100 SQ CM; Left ar m fasciotomy wound 1ST 25 SQ CM WOUND AREA (WRVU 1.83) documented as of this encounter Procedures Procedure Name Priority Date/Time Associated Diagnosis Comme nts FILM LIBRARY Routine 04/22/2013 8:12 AM Results f or this STORAGE ONLY CT EDT procedure ar e in HEAD the results section. documented in this encounter Results Film Library- Storage only CT Head (04/22/2013 8:12 AM EDT) Specimen (Source) Anatomical Collection Method Collection Time Re ceived Time Location / / Volume Laterality 04/22/2013 8:12 AM EDT Narrative RAD - 03/27/2014 4:45 PM EDT This is a non-reportable exam. Procedure Note Robson Archer - 03/27/2014Formatti ng of this note might be different from the original. This is a non-reportable exam. Balaji Hernandes MD IM FILM LIBRARY ORDERABLES Performing Organization Address City/State/ZIP Code Phon e Number [facility] [address] [place] [address] documented in this encounter Visit Diagnoses Not on filedocumented in this encounter Care Teams Typewriter Ribbon Winder Relationship Specialty Start Date End Date Unknown PCP - General 04/22/13 04/23/13 None documented as of this encounter
--- OUTSIDE RECORDS SUMMARY | 2022-04-21 11:45 | XMS_ITS | Encounter Summary ---
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 Extended Emergency Contact Information Primary Emergency Contact: Josefina Packer Relation: Grandparent Secondary Emergency Contact: Marylou [facility] Relation: Sibling Father: Eric Packer [facility] History: denies Substance Use/Abuse: Tobacco hx: 0.5 ppd ETOH hx: binge drinks 1 night per week Illicit drug use hx: denies Other Pertinent/Service Specific Information: n/a Health/Prescription Coverage: Primary Insurance: [place] Payor[place] / Plan[place] PRIMARY CARE PLUS / Product Type: *No Product type* / Secondary Insurance: N/A Prescription Coverage: same as above Preferred Pharmacy: No Pharmacies Listed Other: n/a Primary Care Provider: Kymberly Veras MD [phone] Patient/Caregiver Goals of Treatment: Pt is hopeful to d/c home today with good results from tests. Potential Needs for Transition of Care: Rehab/SNF: n/a Home Health: n/a DME: n/a Dialysis: n/a Community Resources: n/a Transportation: Father will transport or pt will drive self. Other: n/a Anticipated Barriers to Discharge/Special Considerations: none anticipated Assessment: Pt is 27 y/o SWM presented to [facility] with chest pain and diaphoresis. Pt was placed into observation in CDU for r/o of angina. Pt had stress test this AM and currently awaiting results. Ptis likely to discharge home without the need of home services. Plan: Following for [employer] and care management support through disposition. A member of the Care Management team will continue to monitor progress, follow for continuity of care and assist with transition of care planning. ARIN Luna MSW Clinical [employer] ED CDU SDP Pager: [phone] Plan of Care - David Lozada RN - 05/03/2018 1:44 AM EDT Problem: Patient Care Overview Goal: Plan of Care Review Outcome: Ongoing (Interventions Implemented as Appropriate) 05/03/1823 Coping/Psychosocial Plan Of Care Reviewed With patient OUTCOME EVALUATION NOTE: OUTCOME SUMMARY: Patient will have a stress test and be reevaluated later today by MD. PLAN MOVING FORWARD: Continue monitoring, treatment of patient and encourage independents. Make Md. A wear of any changes INDIVIDUALIZED FALL PREVENTION INTERVENTIONS: Patient-specific fall risk factors per assessment: [current deficits]: Patient is A&O X 4, Knowsto call prior to getting out of bed, has call starks at patient side. Patient is wearing none skid socks, bed is in lowest position and all wheels locked. Patient ambulates with a steady gait and doesn'tneed any assistance with ambulation. Assistance [level of assistance required for transfers and ambulation]: Patient is independent and only needs assistance with monitoring cables. Supervision [direct monitoring required during toileting and ADLs]: Patient is independent and only needs assistance with monitoring cables. Surveillance [continuous indirect monitoring]: Patient is on continuous EKG. SPO2 and respiratory monitoring. Patient-specific fall prevention interventions for sensory deficits provided, if applicable: Patientis A&O X 4, Knows to call prior to getting out of bed, has call starks at patient side. Patient iswearing none skid socks, bed is in lowest position and all wheels locked. Patient ambulates with a steady gait and doesn't need any assistance with ambulation. CPG GOAL OUTCOME EVALUATION: Goal: Fall Prevention-Safe Patient Handling Outcome: Ongoing (Interventions Implemented as Appropriate) 05/03/184 05/03/18 0140 Daily Care Interventions Self-Care Promotion -- independence encouraged Activity Activity Type activity adjusted per tolerance -- Activity Assistance Provided -- independent Assistive Device Utilized -- none Cummings Fall Risk History of Falling 0 -- Secondary Diagnosis 0 -- Ambulatory Aids 0 -- Intravenous Therapy/Heparin/Saline Lock 20 -- Gait/Transferring 0 -- Mental Status 0 -- Score 20 -- Restraint Interventions Safety Promotion/Fall Prevention activity supervised;nonskid shoes/slippers when out of bed;fall prevention program maintained -- Positioning Body Position independent -- Goal: Infection Control Outcome: Ongoing (Interventions Implemented as Appropriate) 05/03/18 0024 Safety Interventions Isolation Precautions standard precautions maintained Infection Prevention rest/sleep promoted;single patient room provided Coping Strategies Supportive Measures active listening utilized;positive reinforcement provided;self-care encouraged;verbalization of feelings encouraged documented in this encounter Plan of Treatment Upcoming Encounters Date Type Specialty Care Team Description 06/09/2022 Procedure visit Neurology Summer Wiggins MD [facility] NEUROLOGY DEPT [place], [place] [address] (Wo rk) Scheduled Orders Name Type Priority Associated Diagnoses Order S chedule EKG 12 Lead ECG Routine One Time for 1 Occurrences starting 05/02/2018 unti l 05/02/2018 Scheduled Procedures Name Priority Associated Diagnoses Date/Time APPL SKIN SUB GRAFT HANDS, TO 100 SQ CM; Left ar m fasciotomy wound 1ST 25 SQ CM WOUND AREA (WRVU 1.83) documented as of this encounter Procedures Procedure Name Priority Date/Time Associated Comments Diagnosis STRESS ECHOCARDIOGRAM W STAT 05/03/2018 10:02 Chest pain, Results for this CONTRAST LMTD SPEC AM EDT unspecified type proce dure are in DOPP,COLOR DOPP the results section. EKG 12-LEAD STAT 05/03/2018 7:53 Results for this AM EDT procedure are i n the results section. TROPONIN STAT 05/03/2018 3:09 Results for this AM EDT procedure are i n the results section. EKG 12-LEAD Routine 05/03/2018 3:07 Results for this AM EDT procedure are i n the results section. XR CHEST PA AND LATERAL STAT 05/02/2018 11:33 Results for this PM EDT procedure are i n the results section. HEMOGRAM STAT 05/02/2018 9:00 Results for this PM EDT procedure are i n the results section. DIFFERENTIAL, AUTOMATED STAT 05/02/2018 9:00 R esults for this PM EDT procedure are i n the results section. D-DIMER, QUANTITATIVE STAT 05/02/2018 9:00 Res ults for this PM EDT procedure are i n the results section. BLUE TUBE HOLD STAT 05/02/2018 9:00 Results fo r this PM EDT procedure are i n the results section. GREEN TUBE HOLD STAT 05/02/2018 9:00 Results f or this PM EDT procedure are i n the results section. LAVENDER TUBE HOLD STAT 05/02/2018 9:00 Result s for this PM EDT procedure are i n the results section. CARDIAC ENZYMES STAT 05/02/2018 9:00 Results f or this ([facility]) PM EDT procedure are i n the results section. BASIC METABOLIC PANEL STAT 05/02/2018 9:00 Res ults for this (NON-FASTING) PM EDT procedure are in the results section. EKG 12-LEAD STAT 05/02/2018 8:45 Results for this PM EDT procedure are i n the results section. documented in this encounter Results STRESS ECHOCARDIOGRAM W CONTRAST LMTD SPEC DOPP,COLOR DOPP (05/03/2018 10:02 AM EDT) P athologist Signature EF 60 HEARTLAB SYSTEM Anatomical Region Laterality Modality Other Specimen (Source) Anatomical Location Collection Method / Collectio n Time Received Time / Laterality Volume 05/03/2018 Narrative 05/03/2018 10:15 AM EDT Procedure: ?Stress Echocardiogram Patient: ?AMALIA Hua ?(Age): 1990(27y) Med Rec#: ? [id number] ?Sex: ?M ? Site Loc: ? [facility] ?Ht / Wt: ??185.4(cm)/113.4 Pt. Loc: ?Echo Lab ?BSA: ?2.37 Study Date: ?? 05/03/2018 ?Pt. Type: Tape: ? Referring: Mercedes Nguyễn Reading: Edgar Cobb ([id number]) Surgical Garment Assembler: Pretty Wesley Sample Wrapper: Daria Messina Diagnosis: *Chest pain, unspecified (R07.9) Stage ? BP ?HR ? Rest ?132/90 ?91 ? Peak ?172/94 ?187 ? Recovery ?120/78 ?113 ? SUMMARY: 1. BASELINE: The left ventricular chambe r size is normal. Left ventricular wall thickness is normal. Th ere is normal global left ventricular systolic function. ??Ejectio n fraction is estimated to be 60%. There are no left ventricular segme ntal wall motion abnormalities. Right ventricular global systolic functi on is probably normal. Pulmonary artery hypertension could not be assesse d due to inadequate tricuspid regurgitation jet. ??The cardiac valves appear structurally and functionally normal. EKG: normal sinus r hythm, nondiagnostic ST-T changes. 2. STRESS: The patient achieved a maximu m heart rate of 187 which is 96% of the maximum predicted heart rate (194 beats/min). Patient followed a Papa protocol. The patient exercised in to stage 4. The total exercise duration was:10:16 min:sec. The study wa s terminated because of fatigue. The patient expressed feelings of chest discomfort which was preset at baseline and did not worsen with exercis e, mild and sharp and character. The blood pressure response was normal. The patient achieved a level of 12 METS. There were no arrhythmias. Ther e were no significant ST segment changes. Echocardiographically, normal a ugmentation of systolic function. The patient's oxygen saturatio n was 97%. 3. CONCLUSION: No evidence for ischemia at a diagnostic level of stress. Findings Rest: Left Ventricle: ? The left ventricul ar chamber size is normal. ?Left ventricular wall thickness is normal. ?There is normal global left ventri cular systolic function. ??Ejection fraction is estimated to be 60%. ?There are no left ventricular segm ental wall motion abnormalities. Right Ventricle: ? The right ventric le is probably normal in size. ?Right ventricular global systolic function is probably normal. ?Pulmonary artery hypertension coul d not be assessed due to inadequate tricuspid regurgitation jet. Aortic Valve: ? The aortic valve is trileaflet. The leaflets are thin with normal excursion. There is no aorti c stenosis or regurgitation present. Mitral Valve: ? The mitral valve rickie ears normal in structure and function. ?There is trace mitral regurgitatio n present. Tricuspid Valve: ? The tricuspid michelle ve appears normal in structure and function. ?There is no evidence of tricuspid valve regurgitation present. Pericardium: ? The pericardium appea rs normal and there is no evidence of a pericardial effusion. Aorta: ? The ascending aorta is norm al in size. Stress: ? EKG: normal sinus rhythm. ?EKG: nondiagnostic ST-T changes. ?The patient's oxygen saturation wa s 97% ?The patient is on an TAMIE inhibitor . ?The patient is taking aspirin. ?The patient is taking a diuretic. Misc: ? Other echo and stress findin gs as noted in report. ?Definity contrast (one 1.5 ml vial )was used to enhance endocardial definition. Excess contrast was discarde d. ?Stress echo, limited spectral Dopp ler, color Doppler and ECG interpretation performed. Findings Peak: Predicted Values:The patient achieved a maximum heart rate of 187 which is 96% of the maximum predicted heart ra te (194 beats/min). ??The target heart rate was achieved. Left Ventricle: ? Global left ventri cular systolic function appears hyperdynamic. ?There are no left ventricular segm ental wall motion abnormalities. Stress: ? Patient followed a Papa p rotocol. ?The patient exercised into stage 4 . ?The total exercise duration was:10 :16 min:sec. ?The study was terminated because o f fatigue. ?The patient expressed feelings of chest discomfort. ??Pre-stress pt reported mild, sharp, respirophasic ches sandra blank, aware. CP did not worsen with exercise. ?The blood pressure response was no rmal. ?Exercise capacity was average. ?The patient achieved a level of 12 METS. ?There were no arrhythmias. ?There were no significant ST segme nt changes. ?This was a negative electrocardiog raphic stress test for ischemia. ?This was a negative echocardiograp hic stress test. ?There is no echocardiographic evid ence of myocardial ischemia at this level of stress. ?Echocardiographic findings consist ent with normal left ventricular function. ?The patient's oxygen saturation wa s 97%. Chambers 2D ?Value ?Units (Range) ? IVSd (2D) ? 1.1 ?cm ? LVPWd (2D) ?0.9 ?cm ? IVS:LVPW ratio (2D) 1.2 ?ratio ? RWT (2D) ?0.4 ?ratio ? LVIDd (2D) ?5.2 ?cm ? LVIDd (2D) index ?2.2 ?cm/m2 ? Ascending Ao ?2.7 ?cm (2 - 3.5) ? Volumes/Mass ?Value ?Units (Range) ? LV mass (2D) ?200.2 ?g ? LV mass (2D) index ??84.6 ? g/m2 ? Diastolic/Systolic Function ?Value ?Units (Range) ? MV E-wave Vmax ?0.7 ?m/sec ? MV deceleration bpdm035.1 ? msec ? MV A-wave Vmax ?0.5 ?m/sec ? MV E:A ratio ?1.3 ?ratio ? Wall Motion: Segment Name ?Rest ? Base-Anteroseptal ?? Normal ? Base-Anterior ? Normal ? Base-Anterolateral ??Normal ? Base-Posterolateral Normal ? Base-Inferior ? Normal ? Base-Inferoseptal ?? Normal ? Mid-Anteroseptal ?Normal ? Mid-Anterior ?Normal ? Mid-Anterolateral ?? Normal ? Mid-Posterolateral ??Normal ? Mid-Inferior ?Normal ? Mid-Inferoseptal ?Normal ? [place]-Septal ? Normal ? [place]-Anterior ? Normal ? [place]-Lateral ?Normal ? [place]-Inferior ? Normal ? [place]-Tip ?Normal ? This report has been electronically sign ed by: _ Edgar Cobb MD ? 05/03/2018 10:15 :31 Images reviewed and interpretation rao [facility] Cardiac Ultrasound Laboratory Procedure Note Edgar Cobb MD - 05/03/2018Formattzayda g of this note might be different from the original. Procedure: Stress Echocardiogram Patient: AMALIA IQBAL(Age): 1990(27y) Med Rec#: [id number] Sex: M Site Loc: [facility] Ht / Wt: 185.4(cm)/113.4 Pt. Loc: Echo Lab BSA: 2.37 Study Date: 05/03/2018 Pt. Type: Tape: Referring: Mercedes Nguyễn Reading: Edgar Cobb ([id number]) Surgical Garment Assembler: Pretty Wesley Sample Wrapper: Daria Messina Diagnosis: *Chest pain, unspecified (R07.9) Stage BP HR Rest 132/90 91 Peak 172/94 187 Recovery 120/78 113 SUMMARY: 1. BASELINE: The left ventricular chambe r size is normal. Left ventricular wall thickness is normal. Th ere is normal global left ventricular systolic function. Ejection fraction is estimated to be 60%. There are no left ventricular segme ntal wall motion abnormalities. Right ventricular global systolic functi on is probably normal. Pulmonary artery hypertension could not be assesse d due to inadequate tricuspid regurgitation jet. The cardiac valves ap pear structurally and functionally normal. EKG: normal sinus r hythm, nondiagnostic ST-T changes. 2. STRESS: The patient achieved a maximu m heart rate of 187 which is 96% of the maximum predicted heart rate (194 beats/min). Patient followed a Papa protocol. The patient exercised in to stage 4. The total exercise duration was:10:16 min:sec. The study wa s terminated because of fatigue. The patient expressed feelings of chest discomfort which was preset at baseline and did not worsen with exercis e, mild and sharp and character. The blood pressure response was normal. The patient achieved a level of 12 METS. There were no arrhythmias. Ther e were no significant ST segment changes. Echocardiographically, normal a ugmentation of systolic function. The patient's oxygen saturatio n was 97%. 3. CONCLUSION: No evidence for ischemia at a diagnostic level of stress. Findings Rest: Left Ventricle: The left ventricular amer[place] mber size is normal. Left ventricular wall thickness is norm al. There is normal global left ventricular systolic function. Ejection fraction is estimated to be 60%. There are no left ventricular segmental wall motion abnormalities. Right Ventricle: The right ventricle is probably normal in size. Right ventricular global systolic funct ion is probably normal. Pulmonary artery hypertension could not be assessed due to inadequate tricuspid regurgitation jet. Aortic Valve: The aortic valve is trilea flet. The leaflets are thin with normal excursion. There is no aorti c stenosis or regurgitation present. Mitral Valve: The mitral valve appears n ormal in structure and function. There is trace mitral regurgitation pre sent. Tricuspid Valve: The tricuspid valve rickie ears normal in structure and function. There is no evidence of tricuspid valve regurgitation present. Pericardium: The pericardium appears nor mal and there is no evidence of a pericardial effusion. Aorta: The ascending aorta is normal in size. Stress: EKG: normal sinus rhythm. EKG: nondiagnostic ST-T changes. The patient's oxygen saturation was 97% The patient is on an TAMIE inhibitor. The patient is taking aspirin. The patient is taking a diuretic. Misc: Other echo and stress findings as noted in report. Definity contrast (one 1.5 ml vial)was used to enhance endocardial definition. Excess contrast was discarde d. Stress echo, limited spectral Doppler, color Doppler and ECG interpretation performed. Findings Peak: Predicted Values:The patient achieved a maximum heart rate of 187 which is 96% of the maximum predicted heart ra te (194 beats/min). The target heart rate was achieved. Left Ventricle: Global left ventricular systolic function appears hyperdynamic. There are no left ventricular segmental wall motion abnormalities. Stress: Patient followed a Papa protoco l. The patient exercised into stage 4. The total exercise duration was:10:16 m in:sec. The study was terminated because of fat igue. The patient expressed feelings of chest discomfort. Pre-stress pt reported mild, sharp, respirophasic ches t pain, MD aware. CP did not worsen with exercise. The blood pressure response was normal. Exercise capacity was average. The patient achieved a level of 12 METS . There were no arrhythmias. There were no significant ST segment ch anges. This was a negative electrocardiographi c stress test for ischemia. This was a negative echocardiographic s tress test. There is no echocardiographic evidence of myocardial ischemia at this level of stress. Echocardiographic findings consistent w ith normal left ventricular function. The patient's oxygen saturation was 97% . Chambers 2D Value Units (Range) IVSd (2D) 1.1 cm LVPWd (2D) 0.9 cm IVS:LVPW ratio (2D) 1.2 ratio RWT (2D) 0.4 ratio LVIDd (2D) 5.2 cm LVIDd (2D) index 2.2 cm/m2 Ascending Ao 2.7 cm (2 - 3.5) Volumes/Mass Value Units (Range) LV mass (2D) 200.2 g LV mass (2D) index 84.6 g/m2 Diastolic/Systolic Function Value Units (Range) MV E-wave Vmax 0.7 m/sec MV deceleration [id number] msec MV A-wave Vmax 0.5 m/sec MV E:A ratio 1.3 ratio Wall Motion: Segment Name Rest Base-Anteroseptal Normal Base-Anterior Normal Base-Anterolateral Normal Base-Posterolateral Normal Base-Inferior Normal Base-Inferoseptal Normal Mid-Anteroseptal Normal Mid-Anterior Normal Mid-Anterolateral Normal Mid-Posterolateral Normal Mid-Inferior Normal Mid-Inferoseptal Normal [place]-Septal Normal [place]-Anterior Normal [place]-Lateral Normal [place]-Inferior Normal [place]-Tip Normal This report has been electronically sign ed by: _ Edgar Cobb MD 05/03/2018 10:15:31 Images reviewed and interpretation verif ied [facility] Cardiac Ultrasound Laboratory Mercedes Nguyễn MD ECHO ORDERABLES EKG 12 Lead (05/03/2018 7:53 AM EDT) Component Value Ref Range Test Analysis Performed Pathologis t Method Time At Signature Ventricular rate 80 BPM MUSE SYSTEM Atrial Rate 80 BPM MUSE SYSTEM P-R Interval 174 ms MUSE SYSTEM QRS Duration 94 ms MUSE SYSTEM Q-T Interval 356 ms MUSE SYSTEM QTC Calculated 410 ms MUSE SYSTEM (Bezet) Calculated P Bouton 42 degrees MUSE SYSTEM Calculated T Bouton -22 degrees MUSE SYSTEM INTERPRETATION Normal sinus rhythm with sinus arrhythmia MUSE SYSTEM Voltage criteria for left ventricular hypertrophy Abnormal ECG When compared with ECG of 03-MAY-2018 03:07, (unconfirmed) QT has shortened I personally reviewed the tracing and edited the fellows int erpretation Confirmed by fellow Yue Patel ([id number]) on 05/03/2018 11:0 0:56 AM Confirmed by MD Rodas Timothy ([id number]) on 05/03/2018 3:56:50 P M Specimen Anatomical Collection Method Collection Time Receive d Time (Source) Location / / Volume Laterality 05/03/2018 7:53 AM 8 3:56 EDT PM EDT Stone Leija APRN ECG ORDERABLES Performing Organization Address City/State/ZIP Code Phon e Number MUSE SYSTEM Troponin (05/03/2018 3:09 AM EDT) P athologist Signature Troponin-T <0.01 0.00 - 0.00 MATILDA MANDO ng/mL [facility] Comment: The 99th percentile for Troponin T is le ss than 0.01 ng/mL, any detectable cTnT concentration using this assay should be considered elevated. According to the third universal definit ion of myocardial infarction the following criteria with a clinical prese ntation consistent with acute myocardial ischemia meets the diagnosis for a myocardial infarction (SC). Detection of a rise and/or fall of [...] additional sample may be indicated. Reference: Third [place] Definition of Myocardial Infarction. Journal of the [place] [employer] 2012;60:1581-98 Specimen Anatomical Collection Method Collection Time Receive d Time (Source) Location / / Volume Laterality Blood specimen 05/03/2018 3:09 AM 018 3:09 (specimen) EDT AM EDT Resulting Agency Comment Spec In Lab Mercedes Nguyễn MD CHEMISTRY ORDERABLES Performing Organization Address City/State/ZIP Code Phon e Number [place] [address] EKG 12 Lead (05/03/2018 3:07 AM EDT) Component Value Ref Range Test Analysis Performed Pathologis t Method Time At Signature Ventricular rate 77 BPM MUSE SYSTEM Atrial Rate 77 BPM MUSE SYSTEM P-R Interval 156 ms MUSE SYSTEM QRS Duration 116 ms MUSE SYSTEM Q-T Interval 406 ms MUSE SYSTEM QTC Calculated 459 ms MUSE SYSTEM (Bezet) Calculated P Bouton 39 degrees MUSE SYSTEM Calculated R Bouton -8 degrees MUSE SYSTEM Calculated T Bouton -11 degrees MUSE SYSTEM INTERPRETATION Normal sinus rhythm MUSE SYSTEM Left ventricular hypertrophy with QRS widening Incomplete right bundle branch block Abnormal ECG When compared with ECG of 02-MAY-2018 20:45, (unconfirmed) Vent. rate has decreased BY ??42 BPM QRS duration has increased T wave inversion now evident in Inferior leads Confirmed by MD Rodas Timothy ([id number]) on 05/03/2018 11:32:44 AM Specimen Anatomical Collection Method Collection Time Receive d Time (Source) Location / / Volume Laterality 05/03/2018 3:07 AM 8 EDT 11:32 AM EDT Mercedes Nguyễn MD ECG ORDERABLES Performing Organization Address City/State/ZIP Code Phon e Number MUSE SYSTEM XR Chest PA & Lateral (Generic) (05/02/2018 11:33 PM EDT) Anatomical Region Laterality Modality Chest N/A Digital Radiography Specimen (Source) Anatomical Location Collection Method / Collectio n Time Received Time / Laterality Volume Impressions 05/03/2018 12:15 AM EDT No acute cardiopulmonary process seen. Narrative 05/03/2018 12:15 AM EDT EXAMINATION: XR CHEST PA AND LATERAL (GENERIC) CLINICAL HISTORY: chest pain TECHNIQUE: Frontal and lateral COMPARISON: None FINDINGS: Mild LEFT basilar streaky subsegmental a telectatic changes and/or scarring. RIGHT costophrenic angle cut off the fie ld-of-view, with otherwise no confluent airspace opacity, pleural effusion, or p neumothorax definitively identified. Cardiomediastinal contours within normal limits. Procedure Note Rex Addison MD - 05/03/2018 EXAMINATION: XR CHEST PA AND LATERAL (GE NERIC) CLINICAL HISTORY: chest pain TECHNIQUE: Frontal and lateral COMPARISON: None FINDINGS: Mild LEFT basilar streaky subsegmental a telectatic changes and/or scarring. RIGHT costophrenic angle cut off the fie ld-of-view, with otherwise no confluent airspace opacity, pleural effusion, or p neumothorax definitively identified. Cardiomediastinal contours within normal limits. IMPRESSION No acute cardiopulmonary process seen. Mercedes Nguyễn MD IMG DX ORDERABLES (ABNORMAL) Differential, Automated (05/02/2018 9:00 PM EDT) [facility] gist Method Time Signature Neutrophils % 63.3 % [facility] Neutr Abs (ANC) 6.44 (H) 1.70 - [facility] 6.10 [facility] x10(3)/[facility] LABORATORY Lymphocytes % 22.1 % [facility] Lymphocytes Abs 2.2 0.9 - 3.2 [facility] x10(3)/[facility] LABORATORY Monocytes % 9.9 % [facility] Monocyte Abs 1.0 (H) 0.3 - 0.9 [facility] x10(3)/[facility] LABORATORY Eosinophils % 2.2 % [facility] Eosinophils Abs 0.2 0.0 - 0.4 [facility] x10(3)/[facility] LABORATORY Basophils % 1.0 % [facility] Basophils Abs 0.1 0.0 - 0.1 [facility](3[facility] LABOR[facility]ORY Immature Gran % 1.50 % [facility] Comment: Immature granulocytes(IG's)percentage an d [...] (Source) Location / / Volume Laterality Blood specimen No Charge / 05/02/2018 9:00 PM 018 9:16 (specimen) Unknown EDT PM EDT Resulting Agency Comment Spec In Lab Stone Leija APRN HEMATOLOGY ORDERABLES Performing Organization Address City/State/[place] [address] (ABNORMAL) Hemogram (05/02/2018 9:00 PM EDT) Analysis Performed At Patho logist Time Signature WBC 10.2 (H) 4.0 - 9.5 [facility](3[facility] LABORATORY RBC 5.77 (H) 4.58 - [facility] 5.54 [facility] x10(6)/[facility] LABORATORY Hemoglobin 18.5 (H) 13.7 - [facility] 16.5 gm/dL [facility] Hematocrit 51.9 (H) 40.5 - [facility] % [facility] MCV 89.9 82.9 - [facility] 93.1 [facility] LABORATORY MCH 32.1 27.5 - [facility] 32.1 pg [facility] MCHC 35.6 32.0 - [facility] 35.7 gm/dL [facility] Platelets 235 145 - 357 [facility](3[facility] LAB[facility]ATORY RDWSD 38.0 36.0 - [facility]0 [facility] LABORATORY RDWCV 11.6 11.4 - [facility] 13.8 % [facility] MPV 10.2 7.6 - 12.9 [facility] LABORATORY nRBC % Auto 0.0 % [facility] nRBC Abs Auto 0.000 0.000 - [facility] 0.000 [facility] x10(3)/[facility] LABORATORY Specimen Anatomical Collection Method Collection Time Receive d Time (Source) Location / / Volume Laterality Blood specimen No Charge / 05/02/2018 9:00 PM 018 9:16 (specimen) Unknown EDT PM EDT Resulting Agency Comment Spec In Lab Stone Leija APRN HEMATOLOGY ORDERABLES Performing Organization Address City/State/[place] [address] Basic Metabolic Panel (non-fasting) (05/02/2018 9:00 PM EDT) P athologist Signature Glucose Lvl 116 65 - 199 [facility] mg/dL [facility] Comment: Diabetes: >=200 mg/dL plus symp toms BUN 16 10 - 20 mg/dL [facility] Creatinine 0.92 0.80 - 1.50 mg/dL [facility] Sodium 139 135 - 145 mmol/L [facility] Potassium 3.5 3.5 - 5.0 mmol/L [facility] Comment: Please note: ??Patients with WBC >100,00 0 may have falsely elevated Potassium levels. ??For accurate Potassium quantif ication in these patients send serum separator tube (gold top) for subsequent determinations. ??Contact the Clinical Chemistry Laboratory if there are any qu estions. Chloride 99 98 - 107 mmol/L [facility] CO2 Not Perf [facility] Comment: Add-on request. Sample too old to perform test. Anion Gap Unable to Calculate 5 - 15 mmol/L [facility] Calcium 9.9 8.5 - 10.5 mg/dL [facility] Estimated GFR 114 >=60 mL/min/1.73 m?? [facility] Comment: The eGFR was calculated using the CKD-EP I equation. As with all creatinine based estimates of kidney function, eGFR values calculated with the CKD-EPI equation are not accurate in patients wi th acute kidney failure, extremes of body mass or the acutely ill. [email or web address] eGFR 133 >=60 mL/min/1.73 m?? [facility] Comment: The eGFR was calculated using the CKD-EP I equation. As with all creatinine based estimates of kidney function, eGFR values calculated with the CKD-EPI equation are not accurate in patients wi th acute kidney failure, extremes of body mass or the acutely ill. [email or web address] Specimen Anatomical Collection Method Collection Time Receive d Time (Source) Location / / Volume Laterality Blood specimen No Charge / 05/02/2018 9:00 PM 018 9:21 (specimen) Unknown EDT PM EDT Resulting Agency Comment Spec In Lab Mercedes Nguyễn MD CHEMISTRY ORDERABLES Performing Organization Address City/State/[place] [address] Cardiac Enzymes (LEB/CGP) (05/02/2018 9:00 PM EDT) athologist Signature Troponin-T <0.01 0.00 - 0.00 [facility] ng/mL [facility] Comment: The 99th percentile for Troponin T is le ss than 0.01 ng/mL, any detectable cTnT concentration using this assay should be considered elevated. According to the third universal definit ion of myocardial infarction the following criteria with a clinical prese ntation consistent with acute myocardial ischemia meets the diagnosis for a myocardial infarction (SC). Detection of a rise and/or fall of [...] additional sample may be indicated. Reference: Third [place] Definition of Myocardial Infarction. Journal of the [place] [employer] 2012;60:1581-98 CK, Total 87 0 - 200 unit/L [facility] Specimen Anatomical Collection Method Collection Time Receive d Time (Source) Location / / Volume Laterality Blood specimen No Charge / 05/02/2018 9:00 PM 018 9:21 (specimen) Unknown EDT PM EDT Resulting Agency Comment Spec In Lab Mercedes Nguyễn MD CHEMISTRY ORDERABLES Performing Organization Address City/State/[place] [address] D-Dimer, Quantitative (05/02/2018 9:00 PM EDT) athologist Signature D-Dimer, Quant 244 0 - 500 [facility] FEU ng/ml [facility] Comment: The D-Dimer assay is used to aid in the diagnosis of deep vein thrombosis and pulmonary embolism. A normal D-Dimer res ult (less than 500 FEU ng/ml) has a negative predictive value of approximate ly 95% for the exclusion of acute PE and DVT when there is low to moderate pr etest probability. To use age adjusted cutoff: Age x 10 ng/ml. Specimen Anatomical Collection Method Collection Time Receive d Time (Source) Location / / Volume Laterality Blood specimen No Charge / 05/02/2018 9:00 PM 018 9:16 (specimen) Unknown EDT PM EDT Resulting Agency Comment Spec In Lab Mercedes Nguyễn MD HEMATOLOGY ORDERABLES Performing Organization Address City/[facility] Phon e Number [address] Green Tube HOLD (05/02/2018 9:00 PM EDT) P athologist Signature Green Hold Sample in [facility] Specimen Anatomical Collection Method Collection Time Receive d Time (Source) Location / / Volume Laterality Blood specimen No Charge / 05/02/2018 9:00 PM 018 9:16 (specimen) Unknown EDT PM EDT Mercedes Nguyễn MD CHEMISTRY ORDERABLES Performing Organization Address City/[facility]/ZIP Code Phon e Number [address] Blue Tube HOLD (05/02/2018 9:00 PM EDT) P athologist Signature Blue Hold Sample in [facility] LABORATORY Specimen Anatomical Collection Method Collection Time Receive d Time (Source) Location / / Volume Laterality Blood specimen No Charge / 05/02/2018 9:00 PM 018 9:16 (specimen) Unknown EDT PM EDT Mercedes Nguyễn MD HEMATOLOGY ORDERABLES Performing Organization Address City/[facility]/[place] [address] Lavender Tube HOLD (05/02/2018 9:00 PM EDT) Patholo gist Method Time Signature Lavender Hold Sample in [facility] LABORATORY Specimen Anatomical Collection Method Collection Time Receive d Time (Source) Location / / Volume Laterality Blood specimen 05/02/2018 9:00 PM 018 9:16 (specimen) EDT PM EDT Mercedes Nguyễn MD HEMATOLOGY ORDERABLES Performing Organization Address City/State/[place] [address] EKG 12 Lead (05/02/2018 8:45 PM EDT) Component Value Ref Range Test Analysis Performed Pathologis t Method Time At Signature Ventricular rate 119 BPM MUSE SYSTEM Atrial Rate 119 BPM MUSE SYSTEM P-R Interval 170 ms MUSE SYSTEM QRS Duration 94 ms MUSE SYSTEM Q-T Interval 310 ms MUSE SYSTEM QTC Calculated 436 ms MUSE SYSTEM (Bezet) Calculated P Bouton 40 degrees MUSE SYSTEM Calculated R Bouton -9 degrees MUSE SYSTEM Calculated T Bouton 9 degrees MUSE SYSTEM INTERPRETATION Sinus tachycardia MUSE SY STEM Voltage criteria for left ventricular hypertrophy Abnormal ECG No previous ECGs available Confirmed by MD Rodas Timothy ([id number]) on 05/03/2018 11:32:10 AM Specimen Anatomical Collection Method Collection Time Receive d Time (Source) Location / / Volume Laterality 05/02/2018 8:45 PM 8 EDT 11:32 AM EDT Narrative This result has an attachment that is no t available. Mercedes Nguyễn MD ECG ORDERABLES Performing Organization Address City/State/ZIP Code Phon e Number MUSE SYSTEM documented in this encounter Visit Diagnoses Diagnosis Chest pain, unspecified type documented in this encounter Admitting Diagnoses Diagnosis Chest pain Chest pain, unspecified documented in this encounter Administered Medications Inactive Administered Medications - up to 3 most recent administrations Medication Order MAR Action Action Date Dose Rate Site acetaminophen (TYLENOL) tablet 650 Given 05/03/2018 8:19 AM EDT 650 mg mg 650 mg, Oral, EVERY 4 HOURS PRN, Starting on Tue05/02/18 at 2332, Until Tue05/03/18 at 1551, Pain, Maximum dose of acetaminophen is 4000 mg from all sources in 24 hours., STAT aspirin chewable tablet 81 mg 81 mg, Oral, DAILY, First dose on Meredith at 0900, Until Discontinued, Routine cyclobenzaprine (FLEXERIL) tablet 10 mg Given 05/03/2018 11:26 AM EDT 10 mg 10 mg, Oral, ONCE, 1 dose, On Tue05/03/18 at 1125, STAT ibuprofen (ADVIL;MOTRIN) tablet 600 mg Given 05/03/2018 8:19 AM EDT 600 mg 600 mg, Oral, EVERY 6 HOURS PRN, Starting on Tue05/03/18 at 0718, Until Tue05/03/18 at 1551, Pain, Administer orally with milk or food to minimize GI irritation , STAT ibuprofen (ADVIL;MOTRIN) tablet 600 mg Given 05/02/2018 9:34 PM EDT 600 mg 600 mg, Oral, ONCE, 1 dose, On Tue05/02/18 at 2131, Administer orally with milk or food to minimize GI irritation , STAT lidocaine (LIDODERM) 5 % Patch Applied 05/03/2018 11:48 AM 1 patch 11- Chest (Left) patch 1 patch EDT 1 patch, Transdermal, EVERY 24 HOURS, First dose on Tue05/03/18 at 1146, Until Discontinued, Apply patch(es) for 12 hours, and then remove for 12 hours, STAT lidocaine (LIDODERM) 5 %(700 mg/patch) P atch Removal Transdermal, EVERY 24 HOURS, First dose on Tue05/03/18 at 2345, Until Discontinued, Remove lidocaine 5 %(700 mg/patch) patch nitroGLYcerin (NITROSTAT) SL tablet 0.4 mg 0.4 mg, Sublingual, EVERY 5 MIN PRN, 3 doses, Starting on Tue05/02/18 at 2332, Until Tue05/03/18 at 1551, Chest pain, SL nitroglyceri n may be repeated every 5 minutes as needed up to 3 doses, STAT perflutren lipid microspheres (DEFINITY) Given 05/03/2018 9:30 A M EDT 0.8 mLs injection 0.8 mL 0.8 mL (rounded from 0.75 mL), Intravenous, ONCE PRN, 1 dose, Starting on Tue05/03/18 at 1002, Until Tue05/03/18 at 0930, Other, for enhancement of sub-optimal echo images, Echo Lab (Intra-Procedure), Routine sodium chloride 0.9% 1,000 mL IV bolus New Bag 05/03/2018 11:41 AM EDT 2000 mL/hr at 2,000 mL/hr, Intravenous, ONCE, 1 dose, On Tue05/03/18 at 1126 sodium chloride 0.9% infusion New Bag 05/03/2018 12:40 AM EDT 100 mL/hr 100 mL/hr 100 mL/hr, Intravenous, CONTINUOUS, Starting on Tue05/02/18 at 2258, Until Tue05/03/18 at 1124 documented in this encounter Active and Recently Administered Medications Times are shown in EDT. Scheduled Medication Order 05/01/2018 05/02/2018 05/03/2018 aspirin chewable tablet 81 mg 81 mg, Oral, DAILY, First dose on Tue at 0900, Until Discontinued, Routine aspirin tablet 325 mg 2334 (Not Given - Provider: Jareth Ovalle III, ÁNGEL - Reason: See comment - Comment: given by EMS MECHANICAL ENGINEER) 325 mg, Oral, ONCE, 1 dose, Tue05/02/18 at 2334, STAT cyclobenzaprine (FLEXERIL) tablet 10 mg (COMPLETED) 112 (Given - Provider: Romelia Ronquillo RN) 10 mg, Oral, ONCE, 1 dose, Tue05/03/18 at 1125, STAT ibuprofen (ADVIL;MOTRIN) tablet 600 mg (COMPLETED) 2133 (Given - Provider: Jareth Ovalle III, RN) 600 mg, Oral, ONCE, 1 dose, Tue05/02/18 at 2131, Administer orally with milk or food to minimize GI irritation , STAT lidocaine (LIDODERM) 5 % patch 1 patch(Linked Group 1) 1148 (Patch Applied - Provider: Romelia Ronquillo RN) 1 patch, Transdermal, EVERY 24 HOURS, Fi rst dose on Tue05/03/18 at 1146, Until Discontinued, Apply patch(es) for 12 hours, and then remove for 12 hours, STAT lidocaine (LIDODERM) 5 %(700 mg/patch) Patch Removal(Linked Grou p 1) Transdermal, EVERY 24 HOURS, First dose on Tue05/03/18 at 2345, Until Discontinued, Remove lidocaine 5 %(700 mg/patch) patch sodium chloride 0.9% 1,000 mL IV bolus (COMPLETED) 1141 (New Bag - Provider: Romelia Ronquillo, RN)1211 (Stopped - Provider: Romelia Ronquillo, RN) at 2,000 mL/hr, Intravenous, ONCE, 1 dose, Tue05/03/18 at 1126 Continuous Medication Order 05/01/2018 05/02/2018 05/03/2018 sodium chloride 0.9% infusion (CANCELED) 0040 (New Bag - Provider: David Lozada, RN)1143 (Stopped - Provider: Romelia Ronquillo, RN) 100 mL/hr, at 100 mL/hr, Intravenous, CO NTINUOUS, Starting Tue05/02/18 at 2258, Until Tue05/03/18 at 1124 PRN Medication Order 05/01/2018 05/02/2018 05/03/2018 acetaminophen (TYLENOL) tablet 650 mg 08 (Given - Provider: Romelia Ronquillo, RN) 650 mg, Oral, EVERY 4 HOURS PRN, Startin g Tue05/02/18 at 2332, Until Tue05/03/18 at 1551, Pain, Maximum dose of acetaminophen is 4000 mg from all sources in 24 hours., STAT ibuprofen (ADVIL;MOTRIN) tablet 600 mg 08 (Given - Provider: Romelia Ronquillo, RN) 600 mg, Oral, EVERY 6 HOURS PRN, Startin g Tue05/03/18 at 0718, Until Tue05/03/18 at 1551, Pain, Administer orally with milk or food to minimize GI irritation , STAT nitroGLYcerin (NITROSTAT) SL tablet 0.4 mg 0.4 mg, Sublingual, EVERY 5 MIN PRN, 3 d oses, Starting Tue05/02/18 at 2332, Until Tue05/03/18 at 1551, Chest pain, SL nitroglycerin may be repeated every 5 minutes as needed up to 3 doses, STAT perflutren lipid microspheres (DEFINITY) injection 0.8 mL (COMPL ETED) 0930 (Given - Provider: Daria Messina) 0.8 mL (rounded from 0.75 mL), Intraveno us, ONCE PRN, 1 dose, Starting Tue05/03/18 at 1002, Until Tue05/03/18 at 0930, Other, for enhancement of sub- optimal echo images, Echo Lab (Intra-Procedure), Routine Linked Groups Order Group 1: lidocaine (LIDODERM) 5 % patch 1 patchJump to med 1 patch, Transdermal, EVERY 24 HOURS, Fi rst dose on Tue05/03/18 at 1146, Until Discontinued
Apply patch(es) for 12 hours, and then remove for 12 hours
STAT And lidocaine (LIDODERM) 5 %(700 mg/patch) Patch RemovalJump to med Transdermal, EVERY 24 HOURS, First dose on Tue05/03/18 at 2345, Until Discontinued
Remove lidocaine 5 %(700 mg/patch) patch
documented in this encounter Care Teams Green Chain Operator Relationship Specialty Start Date End Date Kymberly Veras MD PCP - General 05/04/13 10/30/18 [address] [place] [id number] documented as of this encounter
--- OUTSIDE RECORDS SUMMARY | 2022-04-21 11:45 | XMS_ITS | Encounter Summary ---
:1990 Author Organization [facility] [place] [address] Care Team Providers Name Role Phone Dagoberto Koch MD Primary Care Provider Encounter Details Date Type Department Care Team Description 04/27/2013 Anesthesia Event Main Operating Room Kj Mancera MD [facility] [place] [address] Wolf Roche MD [facility] [place] [address] [place] [address] Anesthesia Record Procedure Summary Procedure Name Responsible Anesthesia Start Anesthesia Stop Time Anesthesiologist Time OPEN TREATMENT, Nicholas Mancera MD 04/27/13 1209 3 1447 COMPLEX MANDIBLE FX., MULTI APPROACH, W/ FIXATION (WRVU 17.54) (N/A Face) Events Date Time Event Comment 04/27/2013 1207 Quick Note Pt to restroom t o void just prior to transport to OR 1209 Start 1211 AN Verify 1211 An Start Data 1217 An Induction 1222 An Intubation 1224 Anesthesia Ready 1235 Quick Note 6cc 1% Lidocaine by surgeon 1255 Quick Note Nose checked, fr ee from ETT pressure 1318 Break/Relief In JUAN C YAN, EFFICIENCY MANAGER 1349 Break/Relief Out 1352 Quick Note Nose checked, fr ee from ETT pressure 1429 Quick Note OG suction by nicole rgeon 1434 Extubation/LMA Out 1435 an stop data 1438 Transport 1447 Stop 1545 Name Total Midazolam 2 mg fentaNYL 200 mcg IV Lidocaine 50 mg Propofol 300 mg Rocuronium 50 mg Ondansetron 4 mg Dexamethasone 8 mg Neostigmine 3 mg Glycopyrrolate 0.6 mg Dexmedetomidine 45 mcg ampicillin-sulbactam (UNASYN) 3 gram injection 3 g Dexmedetomidine INF 70.14 mcg Albuterol Inhaler 4 puff oxymetazoline (Afrin) 0.05% nasal spray 2 spray Lactated Ringers 1,000 mL Agents Name O2 Air N2O Sevoflurane (et) Blood No blood administrations on file. Lines, Drains, and Airways Type Details Placement Removal Incision 04/27/13; jaw (inside 04/27/13 0000 by 02/09/22 1508 by mouth approach. ); Jennifer Conway RN Argiro, Matthew P, 02/09/22; 1508 RN PIV 04/27/13; 1134; 04/27/13 1134 by 04/27/13 1618 b y 04/27/13; 1618 Eyal Chow, Liset Emery RN (RETIRED) Non-Surgical Mask Ventilation: 04/27/13 1232 by 1434 by Airway Easy (1); ETT Type: Trice Roman am, MD Cuffed, Nasal, NORMA; ETT Size: 7 mm documented in this encounter Social History Tobacco Use Types Packs/Day Years Used Date Current Every Day Smoker 1 Sex Assigned at Date Recorded Not on file documented as of this encounter OR Notes Anesthesia Postprocedure Evaluation - Nicholas Mancera MD - 04/27/2013 3:45 PM EDT Patient: Eric Packer Procedure(s) Performed: Procedure(s): OPEN TREATMENT, COMPLEX MANDIBLE FX., MULTI APPROACH, W/ FIXATION Actual Anesthetic: general Patient location: PACU Post-op pain: Adequate analgesia being treated with fentanyl and vicodin Post-op nausea: no nausea or vomiting Last Vitals: Filed Vitals: 04/27/13 1530 BP: 131/66 Pulse: 99 Temp: Resp: 16 Post-op cardiovascular and respiratory status: is stable Level of consciousness: awake, alert and oriented Complications: no apparent complications and tolerated the procedure well Fluid Status: normal Anesthesia Preprocedure Evaluation - Wolf Roman MD - 04/26/2013 5:46 PM EDT Pre-Anesthesia Evaluation for: Eric Packer a 22 y.o. male. Procedure(s): OPEN TREATMENT, COMPLEX MANDIBLE FX., MULTI APPROACH, W/ FIXATION Patient Active Problem List Diagnosis ??? Mandible fracture Sustained after hit by 2x4. Presented to ED 04/23/2013 Past Medical History Diagnosis Date ??? Mandible fracture 04/26/2013 Sustained after hit by 2x4. Presented to ED 04/23/2013 No past surgical history on file. History Substance Use Topics ??? Smoking status: Not on file ??? Smokeless tobacco: Not on file ??? Alcohol Use: Not on file History Drug Use Not on file Allergies not on file Medications: MAR and/or home medications have been reviewed. Physical Exam: There were no vitals filed for this visit. There is no height or weight on file to calculate BMI. Airway Assessment: Mallampati: II TM distance: >3 FB Neck ROM: full At least 3 fingerbreadths opening. Cardiovascular Assessment: Rhythm: regular Pulmonary Assessment: breath sounds clear to auscultation Dental Assessment: - normal exam [facility] Assessment: IV access: Peripheral line Anesthesia Plan: ASA 1 general, with a(n) intravenous induction Plan GETA with Nasal ETT The patient was consented for general anesthesia after the risks and benefits of anesthesia were discussed, and all questions answered. Consent paperwork was placed in the patient's chart. Appropriately NPO Full code Region - Other Informed Consent: Anesthetic plan and risks discussed with patient. Plan discussed with resident and attending. [facility]. Assessment: 22 y.o. man to OR for open complex mandible repair with Dr. Neil. Weight: ~94kg Baseline BP: ? Previous Anesthesia: None on file PMH notable for: #none on file Patient Active Problem List Diagnosis ??? Mandible fracture Sustained after hit by 2x4. Presented to ED 04/23/2013 Social History: ? smoker ? drinker Allergies: None listed Labs: none Previous Cardiac Workup: none documented in this encounter Plan of Treatment Upcoming Encounters Date Type Specialty Care Team Description 06/09/2022 Procedure visit Neurology [facility]iggins [facility] [place], [place] [address] (Wo rk) Scheduled Procedures Name [...] MAR Action Action Date Dose Rate Site albuterol (PROVENTIL Given 04/27/2013 12:09 PM EDT 4 puffs HFA;VENTOLIN HFA) 90 mcg/actuation inhaler PRN, Starting on Tue04/27/13 at 1209, Until Tue04/27/13 at 1448, Wheezing, Anesthesia Intra-op, Routine ampicillin-sulbactam (UNASYN) 3 gram inj ection Given 04/27/2013 12:32 PM EDT 3 g 1 dose, Starting on Tue04/27/13 at 1136, Until Tue04/27/13 at 1232, EYAL CHOW: cabinet override dexamethasone (DECADRON) injection Given 04/27/2013 12:48 PM EDT 8 mg PRN, Starting on Tue04/27/13 at 1248, Until Tue04/27/13 at 1448, Anesthesia Intra-op, Routine dexmedetomidine (PRECEDEX) injection Given 04/27/2013 12:35 PM EDT 45 mcg PRN, Starting on Tue04/27/13 at 1235, Until Tue04/27/13 at 1448, Anesthesia Intra-op, Routine dexmedetomidine (PRECEDEX) IV New Bag 04/27/2013 12:51 PM 0.4 mcg/kg/hr 9.1 mL/hr infusion (Anesthesia EDT CONTINUOUS PRN, Starting on Tue04/27/13 at 1251, Until Tue04/27/13 at 1448, Anesthesia Intra-op fentaNYL 50mcg/mL injection Given 04/27/2013 2:22 PM EDT 50 mcg PRN, Starting on Tue04/27/13 at 1217, Until Tue04/27/13 at 1448, Pain, Anesthesia Intra-op, Routine Given 04/27/2013 12:58 PM EDT 50 mcg Given 04/27/2013 12:17 PM EDT 100 mcg glycopyrrolate (ROBINUL) injection Given 04/27/2013 2:18 PM EDT 0.2 mg PRN, Starting on Tue04/27/13 at 1414, Until Tue04/27/13 at 1448, Anesthesia Intra-op, Routine Given 04/27/2013 2:14 PM EDT 0.4 mg lactated ringers infusion New Bag 04/27/2013 2:26 PM EDT mL CONTINUOUS PRN, Starting on Tue04/27/13 at 1209, Until Tue04/27/13 at 1448, Anesthesia Intra-op New Bag 04/27/2013 12:09 PM EDT mL lidocaine (PF) (XYLOCAINE) 100 mg/5 mL (2 %) Given 12:17 PM EDT 50 mg injection PRN, Starting on Tue04/27/13 at 1217, Until Tue04/27/13 at 1448, Anesthesia Intra-op, Routine midazolam (VERSED) injection Given 04/27/2013 12:09 PM EDT 2 mg PRN, Starting on Tue04/27/13 at 1209, Until Tue04/27/13 at 1448, Sleep, Anesthesia Intra-op, Routine neostigmine (PROSTIGMINE) injection Given 04/27/2013 2:14 PM EDT 3 mg PRN, Starting on Tue04/27/13 at 1414, Until Tue04/27/13 at 1448, Anesthesia Intra-op, Routine ondansetron (ZOFRAN) injection Given 04/27/2013 2:14 PM EDT 4 mg PRN, Starting on Tue04/27/13 at 1414, Until Tue04/27/13 at 1448, Nausea, Anesthesia Intra-op, Routine oxymetazoline (AFRIN) 0.05 % nasal spray Given 04/27/2013 12:09 PM EDT 2 sprays PRN, Starting on Tue04/27/13 at 1209, Until Tue04/27/13 at 1448, Congestion, Airplane Mechanic Apprentice recommended duration is 3 days., Anesthesia Intra-op, Routine propofol (DIPRIVAN) 10 mg/mL bolus injection Given 12:17 PM EDT 300 mg (Anesthesia) PRN, Starting on Tue04/27/13 at 1217, Until Tue04/27/13 at 1448, Anesthesia Intra-op rocuronium (ZEMURON) injection Given 04/27/2013 12:17 PM EDT 50 mg PRN, Starting on Tue04/27/13 at 1217, Until Tue04/27/13 at 1448, Anesthesia Intra-op, Routine documented in this encounter Care Teams Motion Picture Equipment Machinist Relationship Specialty Start Date End Date Dagoberto Koch MD PCP - General 04/27/13 05/03/[address] [place] [id number] documented as of this encounter
--- OUTSIDE RECORDS SUMMARY | 2022-04-21 11:45 | XMS_ITS | Encounter Summary ---
:1990 Author Organization [facility] [place] [address] Care Team Providers Name Role Phone None Primary Care Provider Unavailable Encounter Details Date Type Department Care Team Description 01/22/2022 Ancillary Procedure Radiology Library at Lester Robles MD [facility] [place] [address] [place] [address] [phone] (Wo rk) Social History Tobacco Use Types [...] 06/09/2022 Procedure visit Neurology Summer Wiggins MD [facility] NEUROLOGY DEPT [place], [place] [address] (Wo rk) Scheduled Procedures Name Priority Associated Diagnoses Date/Time APPL SKIN SUB GRAFT HANDS, TO 100 SQ CM; Left ar m fasciotomy wound 1ST 25 SQ CM WOUND AREA (WRVU 1.83) documented as of this encounter Procedures Procedure Name Priority Date/Time Associated Diagnosis Comme nts FILM LIBRARY Routine 01/22/2022 9:02 PM Results f or this STORAGE ONLY DX EDT procedure ar e in CHEST the results section. documented in this encounter Results Film Library- Storage Only DX Chest (01/22/2022 9:02 PM EDT) Specimen (Source) Anatomical Location Collection Method / Collectio n Time Received Time / Laterality Volume Narrative REECE VALLADARES - 01/22/2022 9:02 PM EDT This exam is auto-finalizing. It's purpo se is for storage only. Ximena Travis HARTLEY IMKaryn FILM LIBRARY ORDERABLES Performing Organization Address City/State/ZIP Code Phon e Number BLAINE BLAINE [place], [place] documented in this encounter Visit Diagnoses Not on filedocumented in this encounter Care Teams Farm Laborer Relationship Specialty Start Date End Date None PCP - General 03/10/19 None documented as of this encounter
--- OUTSIDE RECORDS SUMMARY | 2022-04-21 11:45 | XMS_ITS | Encounter Summary ---
:1990 [place] [address] Care Team Providers Name Role Phone Nicole Koch MD Primary Care Provider Encounter Details Date Type Department Care Team Description 04/27/2013 Surgery Main Operating Room Rashaad, OPEN JEFFY ATMENT, COMPLEX [facility] MD Jose MANDIBLE FX., [facility] APPROACH, W/ FIXATION [facility] (WRVU 17.54) [facility] [place] [address] [place] [address] [phone] (Wo rk) Social History Tobacco Use Types [...] soups that have been put in a dye blender (pureed), milkshakes, baby food, or any foods you like that are liquid or pureed. You can puree vegetables or fruits in a dye blender or food service helper. Put milk or soy milk with yogurt or ice cream and fruit in a dye blender to make milkshakes. Drink liquid supplements, [...] during evenings and weekends call the hospital transportation maintenance operator at and ask for the ENT resident swine extension field specialist. documented in this encounter Medications at Time of Discharge Medication Sig Dispensed Refills Start Date End Date amoxicillin-clavulanate Take 1 tablet by 14 tablet 0 201205/04/2013 (AUGMENTIN) 875-125 mg mouth 2 times daily per tablet for 7 days. documented as of this encounter H&P Notes Balaji Hernandes MD - 04/27/2013 10:39 AM EDT [facility] [place] - Head & Neck Surgery Facial [...] above, review of systems is negative for DEVELOPER ANALYST, bone, pulmonary, cardiac, GI, , extremity, neurologic, [...] Use: Not on file Lives in : [facility] [id number] Family history: noncontributory, no anesthetic or bleeding [...] IMF screws, intraoral approach, plate fixation, no buttermaker continuous churn IMF fixation. documented in this encounter Miscellaneous [...] Hernandes MD - 04/27/2013 2:34 PM EDT [facility] Operative Note Patient Name: Eric Packer : [id number] MR#: [id number] Case Date: 04/27/2013 Surgeon: Surgeon(s) and Role: [...] fracture. The segments were reduced to their [place] position. MMF screws were placed, one on [...] visit Neurology Summer Wiggins MD [facility] NEUROLOGY DEPT [place], [place] [address] (Wo rk) Scheduled Procedures Name [...] 17.54) documented in this encounter Visit Diagnoses Diagnosis Mandible fracture Closed fracture of unspecified site of m andible documented in this encounter Administered Medications Inactive [...] 2200, Day of Surgery (Day of Procedure) lidocaine-epiNEPHrine 1 Given 04/27/2013 1:01 PM 6 mLs 19- Surgical Site %-1:200,000 injection EDT ONCE PRN, Starting on Tue04/27/13 at 1301, Until Tue04/27/13 at 2200, Intra-Operative (Intra-Procedure), Routine documented in this encounter Active and Recently [...] et (CANCELED) 1545 (Given - Provider: Liset Smith, RN) 1-2 tablet, Oral, EVERY 6 HOURS [...] override documented in this encounter Care Teams Immigration Coordinator Relationship Specialty Start Date End Date Nicole Koch MD PCP - General 04/27/13 05/03/[address] [place] [address] documented as of this encounter
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
--- OUTSIDE RECORDS SUMMARY | 2022-04-21 11:45 | XMS_ITS | Encounter Summary ---
:1990 Author Organization [facility] [address] Care Team Providers Name Role Phone None Primary Care Provider Unavailable Reason for Visit Auth/Cert Specialty Diagnoses / Procedures Referred By Contact Refer red To Contact Diagnoses Cardiac arrest intubated med misuse/covid Ximena Robles MD [facility] Procedures ER IPI Admit [facility] [place] [address] Referral ID Status Reason Start Date Expiration Date Visits Requ ested Visits Authorized [id number] 1 1 Encounter Details Date Type Department Care Team Description 01/26/2022 Anesthesia Event Main Operating Room Zain Pearce MD [facility] [place] [address] [facility] Balaji Connors MD [facility] [place] [address] [facility] [place] [address] Anesthesia Record Procedure Summary Procedure Name Responsible Anesthesia Start Anesthesia Stop Time Anesthesiologist Time MODIFIER WOUND VAC Zain Kelly MD 01/26/22 1543 2 1746 (N/A ) Events Date Time Event Comment 01/26/2022 1455 1543 AN Verify 1543 Start 1543 Transport 1543 An Start Data 1547 An Induction 1553 Anesthesia Ready 1623 Procedure Start 1628 Break/Relief In I assumed care f or [...] opportunity for questions and acknowledgement of understanding MARIA ELENA Enrique 1737 an stop data 1737 Transport 174 Recovery or ICU Handoff Patient care was transferred to the destination unit staff after review of the patient's medica l history, current anesthetic/surgi moe status and plan, according to the Provider Handoff Checklist. 174 Stop Name Total Midazolam 2 mg Propofol INF 711.56 mg Dexmedetomidine INF 118.59 mcg NORepinephrine INF 205 mcg ceFAZolin 2 g fentaNYL (PF) (50 mcg/mL) infusion syringe 50 mL 410 m cg Lactated Ringers 0 mL Sodium Chloride 0.9% 1,000 mL Agents Name O2 Air N2O [...] Catheter 01/23/22; 0035; Q1-2hr 01/23/22 0035 by Scot, 02/05/22 1759 by UOP in ICU patient ÁNGEL Wilde Victor ia H, without alternative; RN urethral catheter removed, tubing intact, other (see comments); Per MD; 02/05/22; 1759 NG/OG Tube 01/23/22; 0059; [place] 01/23/22 0059 by Scot, 0245 by [facility]; left nostril; ÁNGEL Wilde Ayla D RN tubing intact, provider notified; pt self removed ngt; 01/28/22; 0245 ETT ETT Type: Oral, Cuffed; 01/23/22 0116 by Escobar, 01/26/22 2015 by ETT Size: 8 mm; Secured Debbie Machado, COUNSELLING PSYCHOLOGIST [facility], at Teeth: 26 cm Nahed Mcclure, RT Rectal Tube 01/23/22; 0600; fecal 01/23/22 0600 by Salmon, 0200 by management system; ÁNGEL Delgadillo, Carter Martinez, 01/29/22; 0200 RN CVC 3 Lumen 01/23/22; 0600; 01/23/22 0600 by Curry, 2 1230 by internal jugular vein, ÁNGEL Harvey, Lester Machado RN right; lumen/catheter not patent (new lumen [...] (dorsal surface); arm; Emma Otero RN Zab elisabet, Toan A, 01/26/22; 1600 RN NPWT 01/23/22; 1000; Left, 01/23/22 1000 by 01/26/22 1600 by lateral; thigh; Emma Otero RN Zaballa, M arcos A, 01/26/22; 1600 RN NPWT 01/23/22; 1005; Left, 01/23/22 1005 by 01/26/22 1600 by lateral; calf; Emma Otero RN Zaballa, M arcos A, 01/26/22; 1600 RN CVC 3 Lumen 01/23/22; 1625; 01/23/22 1625 by [place], 2 1330 by internal jugular vein, ÁNGEL Fierro J acob P, ÁNGEL left; no longer indicated, removed per policy/procedure, site care per policy/procedure, catheter/device intact; 02/10/22; 1330 Incision 01/26/22; 1625; Left; 01/26/22 1625 by 03/06/22 0738 by palm; dressing Toan Robbins RN Limmaria e, L chica Espinoza, RN xerofrom, abd, aide 4inch aplied on 01/26 at 1730; 03/06/22; 0738 NPWT 01/26/22; 1708; Left; 01/26/22 1708 by 01/29/22 1614 by calf; 01/29/22; 1614 Toan Robbins RN Hunte r, Talib Lee, RN NPWT 01/26/22; 1709; Left, 01/26/22 1709 by 02/04/22 1849 by anterior; thigh; Toan Robbins RN Lightfoot, Lisa M, 02/04/22; 1849 RN NPWT 01/26/22; 1712; Left, 01/26/22 1712 by 02/11/22 1021 by anterior; arm; Toan Robbins RN Binder, Ma rk K RN 02/11/22; 1021 documented in this encounter Social History Tobacco [...] encounter OR Notes Anesthesia Postprocedure Evaluation - Zain Kelly MD - 01/26/2022 5:57 PM EDT Department of Anesthesiology Post-procedure Note Patient: Eric Packer Procedure Summary Date: 01/26/22 Room / Location: [facility] Anesthesia Start: 1543 Anesthesia Stop: Procedures: DEBRIDEMENT SKIN, SUBCU, MUSCLE, BONE UPPER EXTREMITY (WRVU 4.1) (Left Arm Lower) DEBRIDEMENT SKIN, SUBCU, MUSCLE, BONE, LOWER EXTREMITY (WRVU 4.1) (Left Leg) MODIFIER WOUND VAC (N/A ) Diagnosis: (compartment syndrome Left leg, thigh/buttock, forearm s/p I+DWvac) Surgeons: Sigifredo Garcia MD Responsible Provider: Zain Kelly MD Anesthesia Type: general ASA Status: 4 All Anesthesia Providers: Anesthesiologist: Zain Kelly MD BAR BACK: Chidi Venegas CRNA Vitals Value Taken Time BP Temp Pulse Resp SpO2 Pain Level Patient Location: ICU Level of Consciousness: Sedated (Pharmacologic/Intentional) Pain Management: Pain Being Addressed PONV: None Cardiovascular Status: At Baseline and Hypotension (received treatment) Respiratory Status: At Baseline Postoperative Fluid Status: Intravascular EUvolemia Possible Anesthetic Complications: NONE apparent at time of evaluation Final Primary Anesthesia Type: General (The anesthetic type performed was the same as planned.) Comments: On levo gtt @ 2 mcg/min on arrival in MICU Zain Kelly MD Anesthesia Preprocedure Evaluation - Zain Kelly MD - 01/25/2022 8:28 AM EDT Pre-Anesthesia Evaluation for: Eric Packer a 31 y.o. male. Procedure(s): FASCIOTOMY FOREARM WITH DEBRIDEMENT (WRVU 13.83) Patient Active Problem List Diagnosis Date Noted ??? Transaminitis 01/24/2022 ??? Aspiration pneumonia 01/24/2022 ??? SHAMAR ROBB compartment syndrome s/p fasciotimies, I+D 01/23/22 Jose 01/23/2022 ??? Rhabdomyolysis 01/23/2022 ??? Asymptomatic COVID-19 [...] 10.79) performed by Sigifredo Garcia MD at [facility] MA[facility] OR ??? PRO DECOMPRESS ANT/LAT+POST LEG CMPART Left 01/23/2022 FASCIOTOMY, LOWER LEG, ALL COMPARTMENTS (WRVU 7.82) performed by Sigifredo Garcia MD at [facility] MAIN OR ??? PRO INCIS OF HIP/THIGH FASCIA Left 01/23/2022 @FASCIOTOMY,THIGH OR HIP FOR COMPARTMENT SYNDROME (WRVU 12.89) performed by Sigfiredo Garcia MD at [facility] MAIN OR ??? PRO OPEN TREAT MANDIBLE CONDYLE FX, COMPL 04/27/2013 OPEN TREATMENT, COMPLEX MANDIBLE FX., MULTI APPROACH, W/ FIXATION performed by Kishore Neil MD at [facility] MAIN OR ??? PRO REVISE MEDIAN N/CARPAL TUNNEL SURG Left 01/23/2022 MEDIAN NERVE DECOMPRESSION (CARPAL TUNNEL RELEASE) (WRVU 4.97) performed by Sigifredo Garcia MD at [facility] MAIN OR Social History Tobacco Use ??? [...] Perioperative Cognitive Screening None Anesthesia Plan: ASA 4 general, with a(n) intravenous induction 31 y.o. male IVDU presenting with LUE compartment syndrome for fasciotomies. Presented after cardiacarrest in setting of fentanyl use, found down, hyperkalemic to 7.8, ALTHEA, lactate >10. PMHx of HTN, angioedema (unknown trigger) and polysubstance use (cocaine, EtOH and heroin) Plan GETA Active Covid infection. Patient at extremely high risk for perioperative morbidity. Region - Other Informed Consent: Plan discussed with resident. Anesthesia Screening documented in this encounter Plan of Treatment Upcoming Encounters Date Type Specialty Care Team Description 06/09/2022 Procedure visit Neurology Summer Wiggins MD [facility] NEUROLOGY DEPT [place], [place] [address] (Wo rk) Scheduled Procedures Name [...] (Ancef) 1 g in dextrose 5% Given 01/26/2022 4:00 PM ED T 2 g 50 mL infusion Intravenous, PRN, Starting on Tue01/26/22 at 1600, Until Tue01/26/22 at 1830, Administer over 30 Minutes, Anesthesia Intra-op dexmedeTOMIDine (Precedex) (4 New Bag 01/26/2022 3:43 PM 0.5 m cg/kg/hr 14.463 mL/hr mcg/mL) in sodium chloride EDT 0.9% 50 mL infusion Intravenous, CONTINUOUS PRN, Starting on Tue01/26/22 at 1543, Until Tue01/26/22 at 1830, Anesthesia Intra-op fentaNYL (PF) (50 Rate/Dose Change 01/27/2022 11:27 AM 25 mcg/hr 0.5 mL/hr mcg/mL) infusion syringe EDT 50 mL 0-200 mcg/hr (0-4 mL/hr), Intravenous, CONTINUOUS, Starting on 01/23/22 at 0200, Until Tue01/27/22 at 1849, Pain Scale Goal Less than or equal to 3 or to patient verbalized goal. Initial Infusion rate: 50 mcg/hour; ??Adjust hourly rate by 50% AND bolus 50% of new hourly rate every 15 minutes to achieve goal. ??Rate not to exceed 200 mcg/hr. ?? Pain assessment every 15 minutes initially and reassess pain 15 minutes after each bolus given. Pain assessment MUST be documented prior to rate change., Routine Rate/Dose Verify 01/27/2022 8:00 AM EDT 50 mcg/hr 1 mL/hr Rate/Dose Verify 01/27/2022 6:00 AM EDT 50 mcg/hr 1 mL/hr lactated ringers infusion New Bag 01/26/2022 3:43 PM EDT Intravenous, CONTINUOUS PRN, Starting on Tue01/26/22 at 1543, Until Tue01/26/22 at 1830, Anesthesia Intra-op midazolam (pf) (Versed) (1 mg/mL) multi-dose Given 01/26/2022 3: 43 PM EDT 2 mg injection Intravenous, PRN, Starting on Tue01/26/22 at 1543, Until Tue01/27/22 at 1804, Anesthesia Intra-op, Routine NORepinephrine (Levophed) (16 Rate/Dose Change 01/26/2022 4:24 2 mc g/min 7.5 mL/hr mcg/mL) in dextrose 5% 250 mL PM EDT infusion Intravenous, CONTINUOUS PRN, Starting on Tue01/26/22 at 1543, Until Tue01/26/22 at 1830, Anesthesia Intra-op, Routine New Bag 01/26/2022 3:43 PM EDT 1 mcg/min 3.75 mL/hr propofoL (Diprivan) (10 mg/mL) New Bag 01/26/2022 3:43 PM 50 m cg/kg/min 34.71 mL/hr infusion EDT Intravenous, CONTINUOUS PRN, Starting on Tue01/26/22 at 1543, Until Tue01/26/22 at 1830, Anesthesia Intra-op, Routine sodium chloride 0.9% infusion New Bag 01/26/2022 3:43 PM EDT Intravenous, CONTINUOUS PRN, Starting on Tue01/26/22 at 1543, Until Tue01/26/22 at 1830, Anesthesia Intra-op documented in this encounter Additional Health Concerns Infection Onset Date Last Indicated Resolved Time COVID-19Comment: Date of symptom onset: Asymptomatic/unknown 01/23/2022 01/23/2022 02/03/2022 8:46 AM EDT Date of positive test: 01/23/22 Precautions may be discontinued by the [facility] care team after the required isolation period (10 or 20 days, depending on the clinical circumstances) when the patient is clinically improving and has be en afebrile for 24 hours without fever reducing medications. Estimated date patient will be eligible for precaution removal: 02/03/22 Please call [phone] with questions. documented as of this encounter Care Teams Bank Sales And Service Manager Relationship Specialty Start Date End Date None PCP - General 03/10/19 None documented as of this encounter
--- OUTSIDE RECORDS SUMMARY | 2022-04-21 11:45 | XMS_ITS | Encounter Summary ---
:1990 [place] [address] Care Team Providers Name Role Phone None Primary Care Provider Unavailable Encounter Details Date Type Department Care Team Description 01/29/2022 Anesthesia Event [facility] [place] [address] [place] [address] [phone] Anesthesia Record Procedure Summary Procedure Name Responsible Anesthesia Start Anesthesia Stop Time Anesthesiologist Time Acute Pain Service (consult) Events No events on file. No medications on file. Agents No agents on file. Blood No blood administrations on file. Lines, Drains, and Airways Type Details Placement Removal Incision 01/23/22; 0829; Left, 01/23/22 0829 by kiana Otero; calf; vertical Emma Batista RN Incision 01/23/22; 0841; Left, 01/23/22 0841 by kiana Otero; thigh; vertical Emma Batista RN Incision 01/23/22; 0858; Left; arm 01/23/22 0858 by Veronica rojas, (volar surface); vertical Emma Batista RN PICC Line - Double Lumen 03/03/22; 1449; basilic 03/03/22 1449 b y Camp, vein (medial side of arm), Adele Espinoza RN right; pressure injectable catheter ([id number]); 5 Fr; 0 cm; 44 cm; 44 cm; placement verified by x-ray; superior vena cava; CCampRNVAS; distraction, intradermal injection Incision 03/10/22; 1306; Right, 03/10/22 1306 by Cadman, anterior, lateral; thigh Marylou Mcclure RN documented in this encounter Social History [...] visit Neurology Summer Wiggins MD [facility] NEUROLOGY DEPT [place], [place] [address] (Wo rk) Scheduled Procedures Name [...] 01/23/22 Precautions may be discontinued by the [facility] care team after the required isolation period (10 or 20 days, depending on the clinical circumstances) when the patient is clinically improving and has be en afebrile for 24 hours without fever reducing medications. Estimated date patient will be eligible for precaution removal: 02/03/22 Please call [phone] with questions. documented as of this encounter Care Teams Communications Officer Relationship Specialty Start Date End Date None PCP - General 03/10/19 None documented as of this encounter
--- OUTSIDE RECORDS SUMMARY | 2022-04-21 11:45 | XMS_ITS | Encounter Summary ---
:1990 Author Organization [facility] [place] [address] Care Team Providers Name Role Phone None Primary Care Provider Unavailable Encounter Details Date Type Department Care Team Description 01/22/2022 External [place] [address] Social History Tobacco Use Types Packs/Day [...] 06/09/2022 Procedure visit Neurology Summer Wiggins MD [facility] NEUROLOGY DEPT [place], [place] [address] (Wo rk) Scheduled Procedures Name Priority Associated Diagnoses Date/Time APPL SKIN SUB GRAFT HANDS, TO 100 SQ CM; Left ar m fasciotomy wound 1ST 25 SQ CM WOUND AREA (WRVU 1.83) documented as of this encounter Procedures Procedure Name Priority Date/Time Associated Diagnosis Comme nts ECG SCAN Routine 01/22/2022 Results for thi s procedure are in the resu lts section. documented in this encounter Results Scan Doc: ECG (01/22/2022) Narrative This result has an attachment that is no t available. Historical Provider MD SCANLON MGR SCAN EXT ORDR/RSLT documented in this [...] 01/23/22 Precautions may be discontinued by the [facility] care team after the required isolation period (10 or 20 days, depending on the clinical circumstances) when the patient is clinically improving and has be en afebrile for 24 hours without fever reducing medications. Estimated date patient will be eligible for precaution removal: 02/03/22 Please call [phone] with questions. documented as of this encounter Care Teams Staff Mine Warfare Officer Relationship Specialty Start Date End Date None PCP - General 03/10/19 None documented as of this encounter
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
--- OUTSIDE RECORDS SUMMARY | 2022-04-21 11:46 | XMS_ITS | Encounter Summary ---
:[address] [facility] Address [address] [place] [address] Care Team Providers Name Role Phone MARCO Rodriguez Benjamin Primary Care Provider [phone] Reason for Visit Reason Onset Date Comments Returning Call 01/01/2019 To Encounter Details Date Type Department Care Team Description 01/01/2019 Telephone [facility] Keshav Bland MD Returning Call (To ) Urology [id number] [place] [address], [place] [address] (Wo rk) Social History Tobacco Use Types Packs/Day Years Used Date Current Every Day Smoker Cigarettes 0.25 11 Smokeless Tobacco: Never Used Alcohol Use Standard Drinks/Week Comments Yes 0 (1 standard drink = 0.6 oz pure alcoho l) socially Sex Assigned at Date Recorded Not on file documented as of this encounter Functional Status Functional Status Response Date of Assessment Are you deaf or do you have serious difficulty hearing? No 08/08/2018 Are you blind or do you have serious difficulty seeing, No 08/08/2018 even when wearing glasses? Do you have serious difficulty walking or climbing No 08/08/2018 stairs? (5 years old or older) Do you have difficulty dressing or bathing? (5 years old No 08/08/2018 or older) Because of a physical, mental, or emotional condition, do No 08/08/2018 you have difficulty doing errands alone such as visiting a doctor's office or shopping? (15 years old or older) Cognitive Status Response Date of Assessment Because of a physical, mental, or emotional condition, do No 08/08/2018 you have serious difficulty concentrating, remembering, or making decisions? (5 years old or older) documented as of this encounter Miscellaneous Notes Telephone Encounter - Nithya Castillo - 01/01/2019 1421 EDT Patient is saying he is returning a call to and asking for a callback documented in this encounter Plan of Treatment Not on filedocumented as of this encounter Visit Diagnoses Not on filedocumented in this encounter Care Teams Project Hire Relationship Specialty Start Date End Date Robson Antunez V, QUINCY-C PCP - General 08/04/18 [address] [place] [address] documented as of this encounter
--- OUTSIDE RECORDS SUMMARY | 2022-04-21 11:46 | XMS_ITS | Encounter Summary ---
:1990 Author Organization [facility] Address [address] [place] [address] Care Team Providers Name Role Phone MARCO Rodriguez Benjamin Primary Care Provider [phone] Encounter Details Date Type Department Care Team Description 04/26/2021 Lab Requisition [facility] Outr Resulting Lab, Pathology & Laboratory Provider [facility] [address] [place], [place] [address] Social History Tobacco Use Types Packs/Day Years [...] or older) documented as of this encounter Plan of Treatment Not on filedocumented as of this encounter Procedures Procedure Name Priority Date/Time Associated Diagnosis Comme nts C4 COMPLEMENT Routine 04/26/2021 14:43 EDT Result s for this procedure are i n the results section . documented in this encounter Results C4 COMPLEMENT (04/26/2021 14:43 EDT) Pathologist Sig nature C4 Complement 27 13 - 39 mg/dL [facility] Specimen Blood - Venous blood (substance) Performing Organization Address City/State/ZIP Code Phon e Number [facility] [address] [place] [address] SERVICES documented in this encounter Visit Diagnoses Not on filedocumented in this encounter Care Teams Core Layer Machine Operator Relationship Specialty Start Date End Date Robson Antunez MPA-C PCP - General 08/04/18 [address] [place], [place] [phone] documented as of this encounter
--- OUTSIDE RECORDS SUMMARY | 2022-04-21 11:46 | XMS_ITS | Encounter Summary ---
:1990 Author Organization [facility] Address [address] [place] [address] Care Team Providers Name Role Phone None, Provider Primary Care Provider Unavailable Encounter Details Date Type Department Care Team Description 12/15/2017 Results Only [facility] Keshav Bland MD Urology - [address] [address] [address], [address] [place] [phone] (Wo rk) Social History Tobacco Use Types Packs/Day Years Used Date Current Every Day Smoker 0.5 Alcohol Use Standard Drinks/Week Comments Yes 0 (1 standard drink = 0.6 oz pure alcoho l) socially Sex Assigned at Date Recorded Not on file documented as of this encounter Plan of Treatment Not on filedocumented as of this encounter Procedures Procedure Name Priority Date/Time Associated Diagnosis Comme [facility] CYTOPATHOLOGY Routine 12/15/2017 0:00 EDT Results for this procedure are i n the results section . documented in this encounter Results CYTOPATHOLOGY (12/15/2017 0:00 EDT) Pathology Report: CYTOPATHOLOGY REPORT [facility] Reports generated via electronic interface contain janna ginal data; SERVICES however they are lacking the format of the original re port. Caution should be taken when reading/interpreting unfo rmatted reports. Name: ? ERIC PACKER ? Accession #: ? [id number] : ? 1990 (Age: 27) ??M ?Collect Date: ? 12/15 Location: ? [facility] ? Receive Date : ? 12/16/2017 Provider: ? ANDI BLAND MD Copy to: ? CYTOLOGIC DIAGNOSIS: URINE, VOIDED, CYTOLOGIC EVALUATION: - Negative for high grade urothelial carcinoma. Document reviewed and electronically signed by: ? AGUSTIN GORDON MD Report Date: ??12/16/2017 15:49 By the signature above, the attending physician certif ies that he/she has personally conducted a gross and/or microscopic examin ation of the described specimens and rendered or confirmed the above diagnosi s. Specimen Type: ? Urine, Voided Clinical History: ? Clinical diagnosis code: ??C64.4 ? Gross Description: ? 30 cc of opaque yellow fluid were receiv ed and processed by selective cellular enhancement technique. ? End of Report Specimen Performing Organization Address City/State/ZIP Code Phon e Number [facility] [address] [place] [address] SERVICES documented in this encounter Visit Diagnoses Not on filedocumented in this encounter Care Teams Auto Fleet Maintenance Manager Relationship Specialty Start Date End Date None, Provider PCP - General 07/23/13 01/11/18 documented as of this encounter
--- OUTSIDE RECORDS SUMMARY | 2022-04-21 11:46 | XMS_ITS | Encounter Summary ---
:1990 Author Organization [facility] Address [address] [place] [address] Care Team Providers Name Role Phone Dagoberto Koch MD Primary Care Provider Reason for Visit Reason Onset Date Comments Surgery Scheduling 05/08/2018 Encounter Details Date Type Department Care Team Description 05/08/2018 Telephone [facility] Keshav Bland MD Surgery Scheduling Urology - [address] [address] [address], [place] [phone] (Wo rk) Social History Tobacco Use Types Packs/Day Years Used Date Current Every Day Smoker 0.25 Smokeless Tobacco: Never Used Alcohol Use Standard Drinks/Week Comments Yes 0 (1 standard drink = 0.6 oz pure alcoho l) socially Sex Assigned at Date Recorded Not on file documented as of this encounter Miscellaneous Notes Telephone Encounter - Nahed Ballesteros - 05/08/2018 1202 EDT Pt wants to cancel is procedure on 06/20/18. Dope Edger will contact the patient if any time opens up after to see if he is interested in rescheduling at that time. elephone Encounter - Eli Tonja - 05/08/2018 0913 EDT Patient calling wanting to reschedule his surgery date of 06/20/18. Please call to advise documented in this encounter Plan of Treatment Not on filedocumented as of this encounter Visit Diagnoses Not on filedocumented in this encounter Care Teams Staple Cutter Relationship Specialty Start Date End Date Dagoberto Koch MD PCP - General 01/12/18 08/03/18 [address] [place] [address] documented as of this encounter
--- OUTSIDE RECORDS SUMMARY | 2022-04-21 11:46 | XMS_ITS | Clinical Summary ---
:1990 Author Organization [facility] Address [address] [place] [address] Care Team Providers Name Role Phone MARCO Rodriguez Benjamin Primary Care Provider [phone] Allergies Active Allergy Reactions Severity Noted Date Comments Hydromorphone Headaches 08/22/2018 Medications Medication Sig Dispensed Refills Start Date End Date Status LISINOPRIL ORAL Take 10 mg by 0 Active mouth daily. hydroCHLOROthiazide Take 12.5 mg 0 Active (HYDRODIURIL) 25 mg tablet by mouth daily. omeprazole (PRILOSEC) 20 mg Take 20 mg by 0 Active capsule mouth daily. acetaminophen (TYLENOL) 500 Take 2 Tabs 0 08/09/2018 Active mg tablet by mouth every 6 hours as needed for Pain. docusate sodium (COLACE) Take 1 Cap by 0 08/09/2018 Active 100 mg capsule mouth 2 times daily. Additional Information Patient not taking. Reported on 08/22/2018 sulfamethoxazole-trimethoprim (BACTRIM Take 1 Tab by 14 Tab 0 08/22/2018 Active DS) 800-160 mg per tablet mouth 2 times daily. Active Problems Problem Noted Date Urachal cyst 08/08/2018 Social History Tobacco Use Types Packs/Day Years Used Date Current Every Day Smoker Cigarettes 0.25 11 Smokeless Tobacco: Never Used Tobacco Cessation: Ready to Quit: No; Co unseling Given: No Alcohol Use Standard Drinks/Week Comments Yes 0 (1 standard drink = 0.6 oz pure alcoho l) socially Sex Assigned at Date Recorded Not on file Last Filed Vital Signs Vital Sign Reading Time Taken Comments Blood Pressure 107/63 08/09/2018 0651 EST Pulse 66 08/09/2018 0651 EST Temperature 36.2 ??C (97.2 ??F) 08/09/2018 0651 EST Respiratory Rate 14 08/09/2018 0651 EST Oxygen Saturation 97% 08/09/2018 0651 EST Inhaled Oxygen Concentration - - Weight 113.4 kg (250 lb) 08/08/2018 1800 EST Height 188 cm (6' 2.02) 08/08/2018 1800 EST Body Mass Index 32.08 08/08/2018 1800 EST Plan of Treatment Health Maintenance Due Date Last Done Comments Hepatitis C Screen 1990 COVID-19 Vaccine (1) 11/30/1996 Pneumococcal Immunization (1 of 2 - PPSV23) 11/30/1997 Advance Directives For more information, please contact: [phone] Documents on File Type Date Recorded 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 Not Discussed Care Teams Calender Operator Relationship Specialty Start Date End Date Robson Antunez V, QUINCY-C PCP - General 08/04/[address] [place] [address]
--- OUTSIDE RECORDS SUMMARY | 2022-04-21 11:46 | XMS_ITS | Encounter Summary ---
:1990 Author Organization [facility] Address [address] [place] [address] Care Team Providers Name Role Phone Dagoberto Koch MD Primary Care Provider Reason for Visit Reason Onset Date Comments Pre-procedure 01/13/2018 surgery moved due to availability and H&P scheduled Encounter Details Date Type Department Care Team Description 01/13/2018 Telephone [facility] Keshav Bland MD Pre-procedure (surgery Urology - [facility] [address] [facility] moved due to [address] [place] [address] availability [place] [address] [address], [address] scheduled) [phone] [place] [address] (Wo rk) Social History Tobacco Use Types Packs/Day Years Used Date Current Every Day Smoker 0.5 Alcohol Use Standard Drinks/Week Comments Yes 0 (1 standard drink = 0.6 oz pure alcoho l) socially Sex Assigned at Date Recorded Not on file documented as of this encounter Miscellaneous Notes Telephone Encounter - Lita Daniel - 01/13/2018 1503 EDT surgery moved due to availability and H&P scheduled documented in this encounter Plan of Treatment Not on filedocumented as of this encounter Visit Diagnoses Not on filedocumented in this encounter Care Teams Senior Living Advisor Relationship Specialty Start Date End Date Dagoberto Koch MD PCP - General 01/12/18 08/03/18 [address] [place], [place] [address] documented as of this encounter
--- OUTSIDE RECORDS SUMMARY | 2022-04-21 11:46 | XMS_ITS | Encounter Summary ---
:1990 Author Organization [facility] Address [address] [place] [address] Care Team Providers Name Role Phone Dagoberto Koch MD Primary Care Provider Reason for Visit Reason Comments Follow-up abdominal pain Encounter Details Date Type Department Care Team Description 03/28/2018 Post-op Visit [facility] Keshav Bland MD Urachal cyst Urology - [address] (Primary Dx ) [address] [place] [address] [address], [place] [phone] (Wo rk) Social History Tobacco Use Types Packs/Day Years Used Date Current Every Day Smoker 0.25 Smokeless Tobacco: Never Used Alcohol Use Standard Drinks/Week Comments Yes 0 (1 standard drink = 0.6 oz pure alcoho l) socially Sex Assigned at Date Recorded Not on file documented as of this encounter Ordered Prescriptions Prescription Sig Dispensed Refills Start Date End Date Cephalexin 500 mg tablet Take 500 mg by mouth 28 Tab 0 0 03/28/2018 04/04/2018 every 6 hours for 7 days. documented in this encounter Progress Notes Robson Bland MD - 03/28/2018 1115 EDT Chief Complaint: Chief Complaint Patient presents with ??? Follow-up abdominal pain Reason for Consult: Urology was asked to see Eric in consultation at the request of Dagoberto Sethi evaluation of a urachal cyst. HPI: Eric is a 27 y.o. male with a urachal cyst. I originally saw the patient back in November with an infected urachal cyst that general surgery up at [facility] incised and drained and left a wick. He was treated with double antibiotic therapy and was actually scheduled to undergo surgery with me about 2 weeks ago but had canceled it. He is following up today again with a couple of new complaints. He is having some tenderness on the right side of his umbilicus with no erythema or drainage. He also is having some stomach discomfort and actually is vomiting some blood which is been going on for quite some time. There is no problem list on file for this patient. PMH PSH No pertinent PMHx No pertinent PSHx Social History Family History No pertinent past social history No pertinent FHx Medications Current Outpatient Prescriptions: ??? Cephalexin 500 mg tablet, Take 500 mg by mouth every 6 hours for 7 days., Disp: 28 Tab, Rfl: 0 ??? HYDROcodone-acetaminophen (LORTAB) 5-500 mg tablet, Take 1-2 Tabs by mouth every 6 hours as needed for Pain. (Patient not taking: Reported on 03/28/2018), Disp: 12 Tab, Rfl: 0 Allergies No Known Allergies Review of Systems: A 14 point ROS was negative unless listed as positive in the HPI Objective/Physical Exam: Vital Signs: There were no vitals taken for this visit. Exam: Gen: Alert, in no distress Oropharynx: Lips normal Head: Atraumatic Neck: Supple without lymphadenopathy Pulm: Normal effort, unlabored Abd: Soft, non tender. Back: No CVA tenderness. Genital: Circumcised phallus with patent meatus at the tip, no plaques. Testes descended bilaterallywithout masses. Musculoskeletal: No gross motor deficits Skin: Skin warm and dry Psych: Mood and affect appropriate Data Review: NA Assessment/Plan 1. Urachal cyst Patient with a prior infected urachal cyst and had been booked for surgery but canceled for unclear reason. It is bothering him again I would like to treat him with a course of antibiotics and reschedule him for urachal cyst excision. I again warned him that we may have to take a bladder cuff which wewill base on cystoscopy at the time of the procedure. He did have a urine cytology that returned normal. He did also have a CT abdomen pelvis up at [facility] which was normal. No orders of the defined types were placed in this encounter. 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
--- OUTSIDE RECORDS SUMMARY | 2022-04-21 11:46 | XMS_ITS | Encounter Summary ---
:1990 Author Organization [facility] Address [address] [place] [address] Care Team Providers Name Role Phone MARCO Rodriguez Benjamin Primary Care Provider [phone] Reason for Visit Reason Comments Post-OP Follow Up Encounter Details Date Type Department Care Team Description 08/22/2018 Post-op Visit [facility] Keshav Bland MD Urachal cyst Urology - [address] (Primary Dx ) [address] [place] [address] [address], [place] [phone] (Wo rk) Social History Tobacco Use Types [...] or older) documented as of this encounter Ordered Prescriptions Prescription Sig Dispensed Refills Start Date End Date sulfamethoxazole-trimethopr Take 1 Tab by mouth 14 Tab 0 08/22/2018 im (BACTRIM DS) 800-160 mg 2 times daily. per tablet documented in this encounter Progress Notes Robson Bland MD - 08/22/2018 1100 EST Chief Complaint: Chief Complaint Patient presents with ??? Post-OP Follow Up HPI: Eric is a 27 y.o. male s/p robot-assisted laparoscopic urachal cyst excision and cystoscopy. Patient is following up today 2 weeks after surgery and is doing well. He is having some urinary frequency but otherwise has been getting along quite well. He has minimal pain and his appetite is returnedto normal. I reviewed his pathology with him which returned fortunately benign. Medications Current Outpatient Medications: ??? acetaminophen (TYLENOL) 500 mg tablet, Take 2 Tabs by mouth every 6 hours as needed for Pain., Disp: , Rfl: ??? docusate sodium (COLACE) 100 mg capsule, Take 1 Cap by mouth 2 times daily. (Patient not taking:Reported on 08/22/2018), Disp: , Rfl: ??? hydroCHLOROthiazide (HYDRODIURIL) 25 mg tablet, Take 12.5 mg by mouth daily., Disp: , Rfl: ??? LISINOPRIL ORAL, Take 10 mg by mouth daily., Disp: , Rfl: ??? omeprazole (PRILOSEC) 20 mg capsule, Take 20 mg by mouth daily., Disp: , Rfl: ??? sulfamethoxazole-trimethoprim (BACTRIM DS) 800-160 mg per tablet, Take 1 Tab by mouth 2 times daily., Disp: 14 Tab, Rfl: 0 Allergies Allergies Allergen Reactions ??? Dilaudid [Hydromorphone] Headaches Objective/Physical Exam: Vital Signs: There were no vitals taken for this visit. Exam: Constitutional: Alert, in no distress. Lymph: Neck supple without lymphadenopathy Pulm: Normal effort, unlabored Abd: Abdomen soft, non tender, laparoscopic incisions healing well Renal: No CVA tenderness. Musculoskeletal: Extremities warm without edema. Skin: Skin warm and dry. Psych: Mood and affect appropriate Data Review: NA Labs: CBC: Lab Results Component Value Date WBC 14.59 (H) 08/09/2018 RBC 4.64 08/09/2018 HGB 15.0 08/09/2018 HCT 41.3 08/09/2018 MCV 89 08/09/2018 MCH 32.3 08/09/2018 MCHC 36.3 08/09/2018 PLT 242 08/09/2018 BMP: Lab Results Component Value Date NA 136 08/09/2018 K 3.9 08/09/2018 CL 102 08/09/2018 CO2 27 08/09/2018 BUN 12 08/09/2018 CREATININE 0.72 08/09/2018 U/A: No results found for: CLARITYU, LABSPEC, PHUR, GLUCOSEU, BILIRUBINUR, KETONES, BLOODU, PROTEINUR Impression: Patient status post robot-assisted laparoscopic cyst excision and cystoscopy. His pathology returned consistent with a urachal cyst, benign. He does have urinary frequency and I would like him to start on a short course of antibiotics for his urinary frequency and unfortunately he could not give us a sample today. 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
--- OUTSIDE RECORDS SUMMARY | 2022-04-21 11:46 | XMS_ITS | Encounter Summary ---
:1990 Author Organization [facility] Address [address] [place] [address] Care Team Providers Name Role Phone Dagoberto Koch MD Primary Care Provider Reason for Visit Reason Onset Date Comments Discuss Surgery 05/23/2018 Follow-up 07/28/2018 Encounter Details Date Type Department Care Team Description 05/23/2018 Telephone [facility] Keshav Bland MD [facility]iscuss [facility] [address] [place] [address] Follow-up [address] [place] [address] [address], [place] [phone] (Wo rk) Social History Tobacco Use Types Packs/Day Years Used Date Current Every Day Smoker 0.25 Smokeless Tobacco: Never Used Alcohol Use Standard Drinks/Week Comments Yes 0 (1 standard drink = 0.6 oz pure alcoho l) socially Sex Assigned at Date Recorded Not on file documented as of this encounter Miscellaneous Notes Telephone Encounter - Agnieszka Curtis - 07/28/2018 1045 EST Patient states he has pre-op history and physical will be done at PCP on 08/04/18. Telephone Encounter - Nahed Ballesteros - 05/24/2018 1546 EDT Confirmed pt's procedure on 08/08/[address] Bland. Pt will contact his PCP office to schedule a pre-op history and physical. elephone Encounter - Nahed Ballesteros - 05/23/2018 1421 EDT A message was left for the patient requesting he contact the office to discuss his surgery with Dr. Bland. documented in this encounter Plan of Treatment Not on filedocumented as of this encounter Visit Diagnoses Not on filedocumented in this encounter Care Teams Social Work Lecturer Relationship Specialty Start Date End Date Dagoberto Koch MD PCP - General 01/12/18 08/03/18 [address] [place] [address] documented as of this encounter
--- OUTSIDE RECORDS SUMMARY | 2022-04-21 11:46 | XMS_ITS | Encounter Summary ---
:1990 Author Organization [facility] Address [address] [place] [address] Care Team Providers Name Role Phone Dagoberto Koch MD Primary Care Provider Reason for Visit Reason Onset Date Comments Discuss Surgery 03/27/2018 chris was told to come in tomorrow at 11:15/ pt is confirming if this i s correct. Discuss Surgery 04/25/2018 Encounter Details Date Type Department Care Team Description 03/27/2018 Telephone [facility] Keshav Bland MD Discuss Surgery Urology - [address] (chris was told to [address] [place] [address] [place] [address] [address], [address] 5 11:15/ pt is [phone] [place] [phone] correct. ); Discuss [phone] (Wo rk) Surgery Social History Tobacco Use Types Packs/Day Years Used Date Current Every Day Smoker 0.5 Alcohol Use Standard Drinks/Week Comments Yes 0 (1 standard drink = 0.6 oz pure alcoho l) socially Sex Assigned at Date Recorded Not on file documented as of this encounter Miscellaneous Notes Telephone Encounter - Nahed Ballesteros - 04/25/2018 1040 EDT Confirmed pt's procedure on 06/20/[address] Bland. Pt will contact his PCP office to schedule a pre-op history and physical. Pre-op paperwork has been mailed to the patient. elephone Encounter - Wilmer Rodriguez - 03/27/2018 0807 EDT Patient calling stating he was returning a call to Dr. Bland. He is saying his number that is listed is his grandmothers and Dr. Bland called and left a message about surgery. Pt would like to talk to Dr. Bland prior. Please call Eric at [phone] signed by Wilmer Rodriguez at 03/27/2018 8:10 EDTdocumented in this encounter Plan of Treatment Not on filedocumented as of this encounter Visit Diagnoses Not on filedocumented in this encounter Care Teams Smt Operator Relationship Specialty Start Date End Date Dagoberto Koch MD PCP - General 01/12/18 08/03/18 [address] [place] [address] documented as of this encounter
--- OUTSIDE RECORDS SUMMARY | 2022-04-21 11:46 | XMS_ITS | Encounter Summary ---
:1990 Author Organization [facility] Address [address] [place] [address] Care Team Providers Name Role Phone Dagoberto Koch MD Primary Care Provider Encounter Details Date Type Department Care Team Description 04/21/2018 Hospital Encounter [facility] Unknown, [facility] Carito conner MD [address] [facility] [phone] [place] [address] (Work) [phone] Social History Tobacco Use Types Packs/Day Years Used Date Current Every Day Smoker 0.25 Smokeless Tobacco: Never Used Alcohol Use Standard Drinks/Week Comments Yes 0 (1 standard drink = 0.6 oz pure alcoho l) socially Sex Assigned at Date Recorded Not on file documented as of this encounter Medications at Time of Discharge Medication Sig Dispensed Refills Start Date End Date acetaminophen (TYLENOL) 500 Take 2 Tabs by 0 04/2019 mg tablet mouth every 6 hours as needed for Pain. docusate sodium (COLACE) 100 Take 1 Cap by 0 04/2019 mg capsule mouth 2 times daily. hydroCHLOROthiazide Take 12.5 mg by 0 (HYDRODIURIL) 25 mg tablet mouth daily. LISINOPRIL ORAL Take 10 mg by 0 mouth daily. omeprazole (PRILOSEC) 20 mg Take 20 mg by 0 capsule mouth daily. HYDROcodone-acetaminophen Take 1-2 Tabs by 12 Tab 0 06/0208/02/2018 (LORTAB) 5-500 mg tablet mouth every 6 hours as needed for Pain. HYDROmorphone (DILAUDID) 2 mg Take 1 Tab by 10 Tab 0 04/201908/14/2018 tablet mouth every 8 hours as needed for up to 5 days for Pain. Daily Max: 6 mg documented as of this encounter Discharge Disposition Disposition Code Departure Means Destination Home or Self Residential documented in this encounter Plan of Treatment Not on filedocumented as of this encounter Visit Diagnoses Not on filedocumented in this encounter Care Teams Bioinformatics Scientist Relationship Specialty Start Date End Date Dagoberto Koch MD PCP - General 01/12/18 08/03/18 [address] [place] [address] documented as of this encounter
--- OUTSIDE RECORDS SUMMARY | 2022-04-21 11:46 | XMS_ITS | Encounter Summary ---
:1990 Author Organization [facility] Address [address] [place] [address] Care Team Providers Name Role Phone MARCO Rodriguez Benjamin Primary Care Provider [phone] Encounter Details Date Type Department Care Team Description 08/08/2018 - [facility] Robson Bland, Urac amanda cyst 08/09/2018 Encounter General Surgery MD (Primary Dx) [address], [facility] [place] [id number] Social History Tobacco Use Types Packs/Day Years [...] Body Mass Index 32.08 08/08/2018 1800 EST documented in this encounter Functional Status Functional Status Response [...] or older) documented as of this encounter Discharge Diagnoses Diagnosis 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] I10 Essential (primary) hypertension-I10 [ICD-10-CM] K21.9 Gastro-esophageal reflux disease w ithout esophagitis-K21.9[ICD-10-CM] E66.9 Obesity, unspecified-E66.9[ICD-10- CM] Z68.32 Body mass index (BMI) 32.0-32.9, adult-Z68.32[ICD-10-CM] F17.210 Nicotine dependence, cigarettes, uncomplicated-F17.210[ICD-10-CM] documented in this encounter Discharge Summaries Dania Kamara PA - 08/08/2018 1236 EST [facility] Urology Discharge Summary Primary Care Provider: Robson Antunez Attending Physician: Robson Bland MD Admit Date: August 08, 2018 Discharge Date: August 09, 2018 Disposition: Home or self care Problems and Procedures Admitting Diagnosis: Urachal cyst Principal/Final Diagnosis: Urachal cyst Additional Problems Managed in the Hospital There is no problem list on file for this patient. Principal Procedure: Flexible cystoscopy, robotic assisted laparoscopic urachal cyst excision date: August 08, 2018 Secondary Procedures: none Hospital Course Pt is a 27 y/o male whom was admitted on August 08, 2018 after undergoing a RAL URACHAL CYST EXCISION. Pt was brought to the OR under general anesthesia and underwent an uncomplicated intraoperative course. Pt was brought to the PACU in stable condition with indwelling ayala catheter and SOFI drain and was later transferred to the floor for continuing post-operative care. Postop day #1 patient was afebrile, vital signs stable. Pain well controlled. Good urinary output. Ayala catheter was removed and the patient voided spontaneously. The patient was discharged to home on February 06, 2019. Patient was afebrile, vital signs stable, tolerating diet, ambulating and pain controlled oral analgesics at the timeof discharge. The patient had an uncomplicated hospital course. Patient will follow-up with Dr. Blandfor pathology review and postop visit. Allergies and Immunizations No Known Allergies There is no immunization history on file for this patient. Transition of Care Plans Condition at Discharge: Good Assessment at Discharge: Vital signs: Patient Vitals for the past 12 hrs: BP Pulse Heart Rate Resp Temp SpO2 O2 Device 08/09/18 0651 107/63 66 66 BPM 14 36.2 ??C (97.2 ??F) 97 % None 08/09/18 0048 114/71 81 81 BPM 15 36.9 ??C (98.4 ??F) 96 % None Results Pending at Discharge Test results still pending from this admission None Relevant Studies at Discharge None Last Lab Results at Discharge BUN: Lab Results Component Value Date BUN 12 08/09/2018 Creatinine: Lab Results Component Value Date CREATININE 0.72 08/09/2018 CBC: Lab Results Component Value Date WBC 14.59 (H) 08/09/2018 RBC 4.64 08/09/2018 HGB 15.0 08/09/2018 HCT 41.3 08/09/2018 MCV 89 08/09/2018 MCH 32.3 08/09/2018 MCHC 36.3 08/09/2018 PLT 242 08/09/2018 Electrolytes: Lab Results Component Value Date NA 136 08/09/2018 K 3.9 08/09/2018 CL 102 08/09/2018 CO2 27 08/09/2018 Discharge Follow Up Appointments Scheduled with [facility] in the next 3 months Future Appointments Date Time Provider Department Center 08/22/2018 11:00 Robson Bland MD EP5 Uro None Appointments and Procedures Recommended to Patient None Studies We Will Schedule None documented in this encounter Discharge Instructions Discharge Instr - AVS First PageStaDanai robledo PA - 08/09/2018 8:50 EST Diet: Eat small meals until good return of bowel function Drink plenty of fluids Activity: No heavy lifting or strenuous exercise x 4-6 weeks May use stairs No lifting more than a gallon of milk Taking daily walks is advised to minimize blood clots, called a deep vein thrombosis, from forming in your legs. Prolonged sitting or lying in bed should be avoided. Driving: No driving until you completely healed and you have had your postoperative check with your surgeon. No driving while taking narcotic pain medication Skin/Wound Care: Resume normal skin care. Bathing: Okay to get wound wet, but pat dry. Do NOT rub the wound area. Shower only Shower with soap and water daily. Symptoms to Call Your Doctor About: Please call [facility] urology for any questions - someone is available 24 hours a day. Burning with urination, Chest pain, Dizziness, Increased blood in urine, Increased pain, Nausea or vomiting, Pain unrelieved by medication, Redness, swelling or drainage from wound, Shortness of breath, Temperature greater than 101 degrees F and Urinary retention Appointments: Dr Bland for pathology review and post-op visit. Future Appointments Date Time Provider Department Center 08/22/2018 11:00 Robson Bland MD EP5 Uro None Follow-up Services Contacted at Discharge: Attending physician documented in this encounter Medications at Time [...] 20 mg by 0 capsule mouth daily. HYDROmorphone (DILAUDID) 2 mg Take 1 Tab by 10 Tab 0 04/201908/14/2018 tablet mouth every 8 hours as needed for up to 5 days for Pain. Daily Max: 6 mg documented as of this encounter Ordered Prescriptions Prescription Sig Dispensed Refills Start Date End Date docusate sodium (COLACE) Take 1 Cap by mouth 0 100 mg capsule 2 times daily. acetaminophen (TYLENOL) Take 2 Tabs by 0 08/09/19 19 500 mg tablet mouth every 6 hours as needed for Pain. HYDROmorphone (DILAUDID) 2 Take 1 Tab by mouth 10 Tab 0 08/09/2018 08/14/2018 mg tablet every 8 hours as needed for up to 5 days for Pain. Daily Max: 6 mg documented in this encounter Discharge Disposition Disposition Code Departure Means Destination Home or Self Care documented in this encounter Progress Notes ShahzadAminatah - 08/09/2018 1229 EST Initial Case Management/Social Work Assessment and Discharge Plan/Readmission Risk Assessment REASON FOR ADMISSION: Urachal cyst Patient understands reason for admission: Yes(Urachal cyst removal) PATIENT CONTACT INFO VERIFIED: Yes PATIENT ADDRESS VERIFIED: LIVING ARRANGEMENTS AND ACCESSIBILITY ISSUES: Living Arrangements: Alone What in home social supports are available to the patient? Family member(s) Is 24/7 care available? Yes ADVANCED DIRECTIVES, POA &/or COLST IN PLACE: Healthcare Directive: No, patient does not have advance directive for healthcare treatment Information Provided on Healthcare Directives: No Information on Healthcare Directives Requested: No DIRECTIVES FOR FINANCES: Directive For Finances: No TRANSPORTATION: Transportation: Family CULTURAL, HOLINESS and/or LANGUAGE factors affecting health care/discharge planning: Spiritual/Cultural Requests: None Any factors affecting health care/discharge planning?: No Insurance in Place: Yes Medical Insurance: Yes Type of insurance: Medicaid Medicaid Type: Community Referred to patient financial services: No DISCHARGE RISK ASSESSMENT: Total # selected above: Score of 1 - 2: This patient is at LOW RISK for re-hospitalization Tentative plan to address the risk of re-hospitalization for those at HIGH MODERATE RISK: RAPT TOOL: Gender: Female Ambulation distance: 2 or more blocks (600ft) Gait device: None RAPT Tool Score: 5 Patient expects to be discharged to: Home with MD follow up SBIRT: SASQ (Single Alcohol Screening Question) How many times in the past year have you had 5 or more drinks in a single day?: Never How many times in the past year have you used an illegal drug or used a prescription medication for non-medical reasons?: Never Intervention in place/initiated?: No, not indicated FUNCTIONAL STATUS: Activities patient requires assistance: None Assistive Device: None COMMUNITY RESOURCES/SUPPORTS: Primary Care Provider: Robson Antunez PCP Verified: Yes Specialists: Other(Urology ) Type of Home Health Services: None DME Provider: Pharmacy: [facility] ([facility] - [place], [place] - [address] [place] [address] Home Health: Other: POST HOSPITAL TRANSITION PLAN: Pt anticipates dc home later today. No dc needs identified at time of meeting SHYLA PIKE 08/09/2018 12:30 Joce Dumont MD - 08/09/2018 0659 EST Urology Progress Note Chief complaint: Urachal Cyst POD # 1 s/p Flexible cystoscopy, robotic-assisted laparoscopic urachal cyst excision 24 hour events: OR and admitted Afebrile, VSS ЕЛЕНА o/n Subjective/Objective Subjective: Doing well. Walking. Passing flatus. Good pain control. ROS as above. All others negative. Objective: Blood pressure 107/63, pulse 66, temperature 36.2 ??C (97.2 ??F), temperature source Tympanic, resp.rate 14, height 188 cm (74.02), weight (!) 113.4 kg (249 lb 16 oz), SpO2 97 %. Intake/Output Summary (Last 24 hours) at 08/09/2018 0659 Last data filed at 08/09/2018 0600 Gross per 24 hour Intake 6464.5 ml Output 4200 ml Net 2264.5 ml Exam: Gen: NAD CV: Reg rate Resp: Nonlabored, on RA Abdominal: Soft, non-distended, nontender, incision c/d/i Back: no CVA tenderness, or flank bruising : Ayala draining clear yellow Extremities: WWP Neuro: alert and oriented x3, no gross motor or sensory deficits MSK: nl ROM CBC Recent Labs 08/09/18 0334 WBC 14.59* RBC 4.64 HGB 15.0 HCT 41.3 MCV 89 MCHC 36.3 PLT 242 BMP Recent Labs 08/09/18 0334 CREATININE 0.72 BUN 12 NA 136 K 3.9 CL 102 CO2 27 Assessment/Plan Assessment: Pt is a 27 y.o. male POD #1 s/p Flexible cystoscopy, robotic-assisted laparoscopic urachal cyst excision. VSS, good pain control, labs within nl limits. Course complicated by n/a. Plan: Remove ayala catheter Check PVRs x2 Encourage IS OOB/amb QID as tolerated SLIV Cont periop abx SUSY: Likely today Diet: DIET CLEAR LIQUID DVT Prophylaxis: ambulate, SCDs, heparin Joce Hudson MD 08/09/2018 6:59 Weekdays from 7AM-5PM page [phone] with questions. Sofia Sultana RN - 08/02/2018 1000 EST Eric Holland has been instructed as follows regarding medication administration for the day of thescheduled procedure. Date of Surgery: 08/08/2018 Instructions for Taking Medications Day of Surgery Medication Sig Last Dose Hold DOS Take DOS hydroCHLOROthiazide (HYDRODIURIL) 25 mg tablet Take 12.5 mg by mouth daily. x LISINOPRIL ORAL Take 10 mg by mouth daily. 08/06/2018 omeprazole (PRILOSEC) 20 mg capsule Take 20 mg by mouth daily. Yes Patient understands not to take any NSAIDS, vitamins, or supplements 7 days prior to surgery. documented in this encounter H&P Notes Robson Bland MD - 08/08/2018 1107 EST The preoperative history and physical which was performed within 30 days of this procedure has been reviewed and the clinically appropriate elements of the physical examination havebeen repeated. There are no changes to the documented history and physical or if so such changes aredocumented below Robson Bland MD 08/08/2018 11:07 documented in this encounter OR Notes OR Surgeon - Robson Bland MD - 08/08/2018 0000 EST OPERATIVE REPORT SERVICE DATE: 08/08/2018 PREOPERATIVE DIAGNOSIS: Urachal cyst. POSTOPERATIVE DIAGNOSIS: Urachal cyst. PROCEDURE: Flexible cystoscopy and robot-assisted laparoscopic urachal cyst excision. SURGEON: Robson Bland MD CATEGORY MANAGER: RHONDA Mckinnon (no qualified resident was available). ANESTHESIA: INDICATIONS: Eric presented with 2 episodes of periumbilical infection requiring incision and drainage, a wick, as well as antibiotics. A CT scan did show an infected what appeared to be a urachal remnant underneath the umbilicus. He was brought to the OR for definitive management. NARRATIVE: The patient was brought to the room and safety checklist was performed. He underwent general anesthesia, and was placed in lithotomy position and prepped and draped in sterile fashion. Safety checklist step 2 was performed. I inserted a flexible cystoscope into the bladder and surveyed the b ladder carefully, which showed no patent urachus and normal bladder mucosa. Of note, he did have a prior urine cytology that was negative. We then removed the cystoscope, placed a Ayala catheter and drained the bladder. We then placed our robotic port incisions with the first one in the midline approximately 5 cm above the umbilicus and the others about at that same level, about 8 cm lateral to the midline one. We first made an incision in the midline, then used a Veress needle to gain access to theabdomen and insufflated the abdomen. After insufflation, we placed our first 8 mm trocar and put our0-degree lens through the trocar and surveyed the abdomen, which appeared normal. We then located the site of our other 2 trocars and placed those, 8 mm under direct vision. We then docked the robot and placed monopolar scissors in the right hand and a [place] bipolar in the left hand. Then, startingat the umbilicus made a wide incision around it in the peritoneum and took down this area and brought this caudally towards the bladder, making sure to include the urachus. After this strip was completely excised, laterally I brought down the midline all the way down to the bladder. I was careful not to enter the bladder because of the normal cystoscopy. This was amputated at the bladder and the specimen was retrieved and sent to pathology. We then made sure we had good hemostasis and desufflated the abdomen and checked our trocar sites internally and there was no bleeding. We then undocked the robot and removed all the trocars. We then closed the skin with interrupted 4-0 Vicryl sutures and used Dermabond and bupivacaine for local anesthesia. ESTIMATED BLOOD LOSS: 10 mL. INTRAVENOUS FLUIDS: 400 mL. SPECIMENS: Urachal cyst. FOREIGN MATERIAL RETAINED: 16-Syriac Ayala catheter. COMPLICATIONS: None. DISPOSITION: PACU. PLAN: He will be admitted overnight with a Ayala catheter and have a voiding trial in the morning and be discharged to home and follow up in 2 weeks. Unless otherwise noted, there were no complications, no blood loss, no cultures obtained, no specimens removed, and no drains retained. Robson Bland MD 03 07 PM / Robson Bland MD rn Confirmation: [id number] Dictation ID: [id number] documented in this encounter Miscellaneous Notes Plan of Care - Summer Palumbo RN - 08/09/2018 1316 EST Problem: Daily Care Plan Goals Goal: Care Plan Documentation Outcome: Met This Shift 08/09/18 0900 Care Plan Focus Area of Focus Discharge Plan Goal This Shift Pt. will discharge home this shift Nursing Discharge Note D: Patient noted with discharge orders to: home. A: Prescriptions faxed to pharmacy. Reviewed discharge instructions and prescriptions with Patient IV d/c'd. Belongings collected and sent home with patient. R: Patient verbalized understanding of discharge instructions and denied further questions. Patient discharged in stable condition, Father provided transportation home. SUMMER PALUMBO RN 08/09/2018 13:29 lan of Clint - Jacobo Lee RN - 08/09/2018 0305 EST Problem: Daily Care Plan Goals Goal: Care Plan Documentation 01/08/19 2006 Care Plan Focus Goal This Shift adequate pain control Nursing Pain Note D: On assessment patient c/o 8/10. Pain located in the Abdomen. Patient described stretching and discomfort. A: Patient receiving scheduled and PRN medications. See MAR. Provided the following non-pharmacologic interventions: repositioning and emotional support. R: Patient now reports pain 4/10. Verbalized that pain is tolerable. Will continue to monitor and adjust interventions as necessary. JACOBO LEE RN 08/09/2018 3:04 lan of Care - Frederick Sanabria RN - 08/08/2018 1843 EST Problem: Daily Care Plan Goals Goal: Care Plan Documentation 08/08/18 1835 Care Plan Focus Area of Focus Communication Goal This Shift pt. will be oriented to floor Data: Pt arrived on the floor following a flexible cystoscopy and robotic assistive laproscopic urachal cyst excursion. Pt ranks pain as 6 out of 10 on numeric scale (0-10). Pt. VSS and A&Ox3. Pt has 3 lap sites that are CDI. Pt has negative flatus. Action: Pt. Is oriented to floor, use of call bells, medications and use of remote/phone.Patient educated on use of IS, clear liquid diet and performed assessment,.. Response: Pt denies any questions at this time. Will continue to monitor for pain and comfort. FREDERICK SANABRIA RN 08/08/2018 18:39 nesthesia Post-Yaritza - Leona Razo - 08/08/2018 1609 EST Anesthesia Post op Note Eric Holland [id number] Anesthesia received: General; Vital Signs: Temp: 37 ??C (98.6 ??F), Heart Rate: 96 BPM, BP: 138/84, Resp: 12, SpO2: (!) 89 % Vital signs Stable: Yes Consciousness: Recovered to baseline Patient's participation in evaluation:Able to participate Temperature Status: Normothermic Respiratory Status: Airway patent Supplemental O2: Room air Oxygen Saturation: Within patient's normal range Cardiovascular Status: Within patient's normal range Post-op Hydration: Adequate Nausea / Vomiting: None Pain Control: Adequate Current Pain Score: Numeric Pain Level (Scale 1-10): 5 Post-op Assessment: Tolerated procedure well Disposition: Inpatient Complications: No apparent anesthetic complications Doing well. No apparent anesthetic complications. Leona Razo MD 08/08/2018 16:09 rief Op Note - Dania Kamara PA - 08/08/2018 1235 EST [facility] Urologic Surgery Brief Post-Op Note Date of Surgery: 08/08/2018 Surgeon: Robson Balnd MD Assistants: Dania Kamara PA-C Pre-Op Diagnosis: Urachal cyst Post-Op Diagnosis: Urachal cyst Procedure(s): Flexible cystoscopy, robotic-assisted laparoscopic urachal cyst excision Findings: Flexible cystoscopy - no stones, tumors or erythema seen. See OR surgeon note for full findings. Anesthesia Type: General and Local to the incisions. The estimated blood loss was 10 cc Unless otherwise noted, there were no specimens removed, cultures obtained, or drains retained. Fluids: Eric Holland received Crystalloids 1700 mL for fluid replacement. Urine Output: 100 cc Specimens/Cultures: Urachal cyst was sent for Routine Pathology Drains/Packs: Urinary Catheter (Ayala) inserted. Stents: None Complications: None Disposition and Condition: Eric Holland was sent to PACU in Stable condition. RHONDA Mckinnon 08/08/2018 12:35 documented in this encounter Plan of Treatment Not on filedocumented as of this encounter Procedures Procedure Name Priority Date/Time Associated Comments Diagnosis ECG REPORT - SCANNED 08/11/2018 13:15 EST COMPLETE BLOOD COUNT Routine 08/09/2018 3:34 Resu lts for this EST procedure are i n the results section. BUN Routine 08/09/2018 3:34 Results for this EST procedure are i n the results section. GLUCOSE, SERUM Routine 08/09/2018 3:34 Results fo r this EST procedure are i n the results section. CREATININE Routine 08/09/2018 3:34 Results for this EST procedure are i n the results section. ELECTROLYTES Routine 08/09/2018 3:34 Results for this EST procedure are i n the results section. SURGICAL PATHOLOGY Routine 08/08/2018 22:38 Resul ts for this EST procedure are i n the results section. documented in this encounter Results GLUCOSE, SERUM (08/09/2018 3:34 EST) Pathologist Sig nature Glucose, Serum 100 70 - 100 mg/dl [facility] SERVICES Specimen Blood specimen (specimen) - Blood Performing Organization Address City/Va Hospital/ZIP Code Phon e Number [facility] [address] [place] [address] SERVICES CREATININE (08/09/2018 3:34 EST) Creatinine 0.72 0.66 - 1.25 [facility] mg/dl LABORATORY SERVICES GFR, Calculated 129 >60 [facility] Comment: ml/min/1.73m2 LABORATORY eGFR calculated using CKD-EPI equation for SERVICES non Americans. Multiply eGFR by 1.16 for Americans. Specimen Blood specimen (specimen) - Blood Performing Organization Address City/Va Hospital/ZIP Code Phon e Number [facility] [address] [place] [address] SERVICES BUN (08/09/2018 3:34 EST) Pathologist Sig nature BUN 12 10 - 26 mg/dl [facility] LABORATO RY SERVICES Specimen Blood specimen (specimen) - Blood Performing Organization Address City/Va Hospital/[facility] Phon e Number [facility] [address] [place] [address] SERVICES ELECTROLYTES (08/09/2018 3:34 EST) Pathologist Sig nature Sodium 136 136 - 145 mEq/L [facility] SERVICES Potassium 3.9 3.5 - 5.0 mEq/L [facility] SERVICES Chloride 102 96 - 110 mEq/L [facility] LAB[facility]AT ORY SERVICES CO2 27 22 - 32 mEq/L [facility] RY SERVICES Specimen Blood specimen (specimen) - Blood Performing Organization Address City/Va Hospital/ZIP [facility] [place] [place] Phon e Number [facility] [address] [place] [address] SERVICES (ABNORMAL) COMPLETE BLOOD COUNT (08/09/2018 3:34 EST) Pathologist Sig nature WBC 14.59 (H) 4.0 - 10.4 K/cmm [facility] SERVICES RBC 4.64 4.36 - 5.78 [facility] Hemoglobin 15.0 13.8 - 17.3 gm/dl [facility] HCT 41.3 39.5 - 50.2 % [facility] MCV 89 81 - 95 fl [facility] MCH 32.3 27.6 - 33.0 pg [facility] MCHC 36.3 32.8 - 36.4 gm/dl [facility] RDW-CV 11.6 <14.2 % [facility] RDW-SD 37.3 <46.0 fl [facility] PLT 242 141 - 377 K/[facility] LABORATORY SERVICES MPV 8.9 (L) 9.5 - 12.7 fl [facility] Specimen Blood specimen (specimen) - Blood Performing Organization Address City/State/ZIP Code Phon e Number [facility] [address] [place] [address] SERVICES SURGICAL PATHOLOGY (08/08/2018 22:38 EST) Pathology Report: SURGICAL PATHOLOGY REPORT [facility] Reports generated via electronic interface contain janna ginal data; LABORATORY however they are lacking the format of the original re port. SERVICES Caution should be taken when reading/interpreting unfo rmatted reports. Name: ? ERIC HOLLAND ? Accession #: ? [id number] ? : ? 1990 (Age: 27 ) ??M ? Collect Date: ? 08/08/2018 ? Location: ? B003 ? Receive Date: ? Provider: ROBSON BLAND MD Copy to: ROBSON ANTUNEZ MPA-C ? Final Pathologic Diagnosis: SOFT TISSUE, URACHAL CYST, RESECTION: - Benign epithelium-lined smooth muscle tissue w ithin a elijdrv-hniga-tpuldpr tissue, consistent with clinical urachal cyst wall. Document reviewed and electronically signed by: Mike Danielle MD Report ??Date: 08/15/2018 15:26 By the signature above, the attending physician certif ies that he/she has personally conducted a gross and/or microscopic examin ation of the described specimens and rendered or confirmed the above diagnosi s. Specimen(s) Received: Urachal cyst Clinical History: Urachal cyst Gross Description: ? Received in normal saline labelled with proper patient identification (initials M, P) and urachal cyst is an aggregate of fibrofatty tissue with areas of membranous tissue (5.5 x 5.2 x 1.0 cm). No le sions or nodules are identified. The specimen is entirely submitted in 08-12 . 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 documented in this encounter Administered Medications Inactive Administered Medications - up to 3 most recent administrations Medication Order MAR Action Action Date Dose Rate Site acetaminophen (TYLENOL) tablet Given 08/09/2018 11:46 EST 1,000 mg 1,000 mg 1,000 mg, oral, EVERY 6 HOURS, First dose on Tue08/08/18 at 1815, Until Discontinued, Routine, Recovery (only) Given 08/09/2018 6:17 EST 1,000 mg Given 08/09/2018 0:22 EST 1,000 mg ceFAZolin (ANCEF) 2,000 mg in sodium chloride Given 9:48 EST 2,000 mg 0.9% 50 mL IVPB 2,000 mg, intravenous, Administer over 30 Minutes, EVERY 8 HOURS, 2 doses, First dose on Tue08/09/18 at 0000, Last dose on Tue08/09/18 at 0800, Routine, On Unit Given 08/09/2018 0:48 EST 2,000 mg ceFAZolin (ANCEF) 2,000 mg in sodium chloride Given 16:37 EST 2,000 mg 0.9% 50 mL IVPB 2,000 mg, intravenous, Administer over 30 Minutes, NOW X1, 1 dose, On Tue08/08/18 at 1645, Routine, Recovery (only) ceFAZolin (ANCEF) syringe 2 g Given 08/08/2018 13:52 EST 2 g 2 g, intravenous, Administer over 10 Minutes, PRE-OP ONCE, 1 dose, On Tue08/08/18 at 1130, Routine docusate sodium (COLACE) capsule 100 mg Given 08/09/2018 9:49 EST 100 mg 100 mg, oral, 2 TIMES DAILY, First dose on Tue08/08/18 at 2100, Until Discontinued, Routine, On Unit Given 08/08/2018 20:08 EST 100 mg fentaNYL citrate (PF) injection 25-50 mc g Given 08/08/2018 16:18 EST 50 mcg 25-50 mcg, intravenous, EVERY 5 MIN PRN, Starting on Tue08/08/18 at 1502, Until Tue08/08/18 at 1744, Pain, Routine, Recovery (only) Given 08/08/2018 15:56 EST 50 mcg heparin injection 5,000 Units Given 08/09/2018 9:50 EST 5,000 Units 5,000 Units, subcutaneous, EVERY 12 HOURS, First dose on Tue08/08/18 at 2100, Until Discontinued, Routine, On Unit Given 08/08/2018 20:08 EST 5,000 Units hydroCHLOROthiazide (HYDRODIURIL) tablet 12.5 Given 08/09/19 9:49 EST 12.5 mg mg 12.5 mg, oral, DAILY, First dose on Tue08/08/18 at 1815, Until Discontinued, Routine, Recovery (only) Given 08/08/2018 18:23 EST 12.5 mg HYDROmorphone (DILAUDID) tablet 2-4 mg Given 08/08/2018 15:44 EST 2 mg 2-4 mg, oral, EVERY 30 MINUTES PRN, 2 doses, Starting on Tue08/08/18 at 1502, Until Tue08/08/18 at 1744, Pain, Routine, Recovery (only) HYDROmorphone (DILAUDID) tablet 2-4 mg Given 08/09/2018 9:48 EST 4 mg 2-4 mg, oral, EVERY 4 HOURS PRN, Starting on Tue08/08/18 at 1759, Until Tue08/09/18 at 1518, Pain, Routine, Recovery (only) Given 08/09/2018 3:44 EST 4 mg Given 08/08/2018 20:08 EST 2 mg HYDROmorphone injection (DILAUDID) 0.5 mg/1 mL Given 0 08/08/2018 22:41 EST 0.4 mg syringe 0.2-0.4 mg 0.2-0.4 mg, intravenous, EVERY 4 HOURS PRN, Starting on Tue08/08/18 at 1759, Until Tue08/09/18 at 0843, Pain, Routine, On Unit HYDROmorphone injection (DILAUDID) 0.5 mg/1 mL Given 0 08/08/2018 17:03 EST 0.5 mg syringe 0.3-0.5 mg 0.3-0.5 mg, intravenous, EVERY 10 MINUTES PRN, Starting on Tue08/08/18 at 1502, Until Tue08/08/18 at 1744, Pain, Routine, Recovery (only) Given 08/08/2018 15:44 EST 0.5 mg ketOROLAC (TORADOL) injection 30 mg Given 08/09/2018 0:23 EST 30 mg 30 mg, intravenous, EVERY 6 HOURS, 2 doses, First dose on Tue08/08/18 at 1815, Last dose on Tue08/09/18 at 0015, Routine, On Unit Given 08/08/2018 18:24 EST 30 mg lactated ringers (LR) infusion New Bag 08/08/2018 10:27 EST 25 mL/hr at 25 mL/hr, intravenous, CONTINUOUS, Starting on Tue08/08/18 at 1030, Until Tue08/08/18 at 1412, Routine, Preprocedure lactated ringers (LR) infusion Rate Documented 08/08/2018 20:22 EST 150 mL/hr at 150 mL/hr, intravenous, CONTINUOUS, Starting on Tue08/08/18 at 1530, Until Tue08/09/18 at 0843, Routine Rate Documented 08/08/2018 18:01 EST 150 mL/hr lisinopril (PRINIVIL, ZESTRIL) tablet 10 mg Given 08/09/2018 9:48 EST 10 mg 10 mg, oral, DAILY, First dose on Tue08/08/18 at 1815, Until Discontinued, Recovery (only) Given 08/08/2018 18:24 EST 10 mg naloxone (NARCAN) injection 0.2 mg 0.2 mg, intravenous, PRN, Starting on 08/08/18 at 1502, Until Tue08/09/18 at 1518, Opioid Reversal, Routine ondansetron (PF) (ZOFRAN) injection 4 mg 4 mg, intravenous, EVERY 4 HOURS PRN, Starting on Tue08/08/18 at 1759, Until Tue08/09/18 at 1518, Nausea, Routine, Recovery (only) ondansetron (ZOFRAN-ODT) disintegrating tablet 4 mg 4 mg, oral, EVERY 4 HOURS PRN, Starting on Tue08/08/18 at 1759, Until Tue08/09/18 at 1518, Nausea, Routine, Recovery (only) pantoprazole (PROTONIX) tablet 40 mg Given 08/09/2018 9:49 EST 40 mg 40 mg, oral, DAILY, First dose on Tue08/08/18 at 1815, Until Discontinued, Recovery (only) Given 08/08/2018 18:23 EST 40 mg phenazopyridine (PYRIDIUM) 100 mg tablet 1 dose, Starting on Tue08/08/18 at 1634, Until Tue at 1518 phenazopyridine (PYRIDIUM) tablet 200 mg Given 08/09/2018 11:46 EST 200 mg 200 mg, oral, 3 TIMES DAILY PRN, 9 doses, Starting on Tue08/08/18 at 1631, Until Tue08/09/18 at 1518, Pain, Routine, On Unit Given 08/08/2018 16:36 EST 200 mg documented in this encounter Discontinued Medications Medication Sig Discontinue Reason Start Date End Date HYDROcodone-acetaminophe Take 1-2 Tabs by Therapy completed 013 08/02/2018 n (LORTAB) 5-500 mg mouth every 6 hours tablet as needed for Pain. documented as of this encounter Historical Medications This list may reflect changes made after this encounter. Medication Sig Dispensed Refills Start Date End Date omeprazole (PRILOSEC) 20 mg Take 20 mg by 0 capsule mouth daily. hydroCHLOROthiazide Take 12.5 mg by 0 (HYDRODIURIL) 25 mg tablet mouth daily. LISINOPRIL ORAL Take 10 mg by 0 mouth daily. added in this encounter Active and Recently Administered Medications Times are shown in EST. Scheduled Medication Order 08/07/2018 08/08/2018 08/09/2018 acetaminophen (TYLENOL) tablet 1,000 mg 1824 (Given - Provider: Frederick Sanabria RN) 0022 (Given - Provider: Jacobo Lee RN)0 617 (Given - Provider: Jacobo Lee RN)1146 (Given - Provider: Summer Palumbo, ÁNGEL) 1,000 mg, oral, EVERY 6 HOURS, First dos e on Tue08/08/18 at 1815, Until Discontinued, Routine ceFAZolin (ANCEF) 2,000 mg in sodium chloride 0.9% 50 mL IVPB (C OMPLETED) 0048 (Given - Provider: Jacobo Lee RN)0948 (Given - Provider: Summer Palumbo RN) 2,000 mg, intravenous, Administer over 3 0 Minutes, EVERY 8 HOURS, 2 doses, First dose on Tue08/09/18 at 0000, Last dose on Tue08/09/18 at 0800, Routine ceFAZolin (ANCEF) 2,000 mg in sodium chloride 0.9% 50 mL IVP B (COMPLETED) 1637 (Given - Provider: Sandra Lee RN) 2,000 mg, intravenous, Administer over 3 0 Minutes, NOW X1, 1 dose, Tue08/08/18 at 1645, Routine ceFAZolin (ANCEF) syringe 2 g (COMPLETED) 1352 (Given - Provider: Marco Alonso CRNA) 2 g, intravenous, Administer over 10 Min utes, PRE-OP ONCE, 1 dose, Tue08/08/18 at 1130, Routine docusate sodium (COLACE) capsule 100 mg 2007 (Given - Provider: Jacobo Lee RN) 0949 (Given - Provider: Summer Palumbo RN) 100 mg, oral, 2 TIMES DAILY, First dose on Tue08/08/18 at 2100, Until Discontinued, Routine heparin injection 5,000 Units 2007 (Given - Prov ider: Jacobo Lee RN) 0950 (Given - Provider: Summer Palumbo RN) 5,000 Units, subcutaneous, EVERY 12 HOUR S, First dose on Tue08/08/18 at 2100, Until Discontinued, Routine hydroCHLOROthiazide (HYDRODIURIL) tablet 12.5 mg 1823 (Given - Provider: Frederick Sanabria RN) 0949 (Given - Provider: Summer Palumbo RN) 12.5 mg, oral, DAILY, First dose on Tue08/08/18 at 1815, Until Discontinued, Routine ketOROLAC (TORADOL) injection 30 mg (COMPLETED) 1824 (Given - Provider: Frederick Sanabria RN) 0023 (Given - Provider: Jacobo Lee RN) 30 mg, intravenous, EVERY 6 HOURS, 2 dos es, First dose on Tue08/08/18 at 1815, Last dose on Tue08/09/18 at 0015, Routine lisinopril (PRINIVIL, ZESTRIL) tablet 10 mg 1824 (Given - Provider: Frederick Sanabria, RN) 0948 (Given - Provider: Summer Palumbo RN) 10 mg, oral, DAILY, First dose on Tue08/08/18 at 1815, Until Disc ontinued pantoprazole (PROTONIX) tablet 40 mg 182 3 (Given - Provider: Frederick Sanabria RN) 0949 (Given - Provider: Summer Palumbo RN) 40 mg, oral, DAILY, First dose on Tue08/08/18 at 1815, Until Disc ontinued Continuous Medication Order 08/07/2018 08/08/2018 08/09/2018 lactated ringers (LR) infusion (CANCELED) 1027 (New Bag - Provider: Dania Daniel RN)1530 (Completed - Provider: Sandra Lee, ÁNGEL) at 25 mL/hr, intravenous, CONTINUOUS, St arting Tue08/08/18 at 1030, Until Tue08/08/18 at 1412, Routine lactated ringers (LR) infusion (CANCELED) 1530 (Continued Infusion - Provider: Sandra Lee, RN)180 (Rate Documented - Provider: Frederick Sanabria RN)202 (Rate Documented - Provider: Jacobo Lee, RN) at 150 mL/hr, intravenous, CONTINUOUS, S tarting Tue08/08/18 at 1530, Until Tue08/09/18 at 0843, Routine PRN Medication Order 08/07/2018 08/08/2018 08/09/2018 diphenhydrAMINE (BENADRYL) elixir 12.5-25 mg 12.5-25 mg, oral, EVERY 6 HOURS PRN, Sta rting Tue08/08/18 at 1759, Until Tue08/09/18 at 1518, Itching, Routine fentaNYL citrate (PF) injection 25-50 mcg (CANCELED) 1556 (Given - Provider: Sandra Lee RN)1618 (Given - Provider: Sandra Lee RN) 25-50 mcg, intravenous, EVERY 5 MIN PRN, Starting Tue08/08/18 at 1502, Until Tue08/08/18 at 1744, Pain, Routine HYDROmorphone (DILAUDID) tablet 2-4 mg (CANCELED) 1544 (Given - Provider: Sandra Lee RN) 2-4 mg, oral, EVERY 30 MINUTES PRN, 2 do ses, Starting Tue08/08/18 at 1502, Until Tue08/08/18 at 1744, Pain, Routine HYDROmorphone (DILAUDID) tablet 2-4 mg 2007 (Giv en - Provider: Jacobo Lee RN) 0344 (Given - Provider: Jacobo Lee RN)0948 (Given - Provider: Summer Palumbo RN) 2-4 mg, oral, EVERY 4 HOURS PRN, Startin g Tue08/08/18 at 1759, Until Tue08/09/18 at 1518, Pain, Routine HYDROmorphone injection (DILAUDID) 0.5 mg/1 mL syringe 0.2-0 .4 mg (CANCELED) 2241 (Given - Provider: Jacobo Lee RN) 0.2-0.4 mg, intravenous, EVERY 4 HOURS P RN, Starting Tue08/08/18 at 1759, Until Tue08/09/18 at 0843, Pain, Routine HYDROmorphone injection (DILAUDID) 0.5 mg/1 mL syringe 0.3-0 .5 mg (CANCELED) 1544 (Given - Provider: Sandra Lee RN)1703 (Given - Provider: Sandra Lee RN) 0.3-0.5 mg, intravenous, EVERY 10 MINUTE S PRN, Starting Tue08/08/18 at 1502, Until Tue08/08/18 at 1744, Pain, Routine naloxone (NARCAN) injection 0.2 mg 0.2 mg, intravenous, PRN, Starting Tue at 1502, Until Tue08/09/18 at 1518, Opioid Reversal, Routine ondansetron (PF) (ZOFRAN) injection 4 mg(Linked Group 1) 4 mg, intravenous, EVERY 4 HOURS PRN, St arting e 08/08/18 at 1759, Until Tue08/09/18 at 1518, Nausea, Routine ondansetron (ZOFRAN-ODT) disintegrating tablet 4 mg(Linked Group 1) 4 mg, oral, EVERY 4 HOURS PRN, Starting Tue08/08/18 at 1759, Until Tue08/09/18 at 1518, Nausea, Routine phenazopyridine (PYRIDIUM) tablet 200 mg 1636 (Given - Provider: Sandra Lee RN) 1146 (Given - Provider: Summer Palumbo RN) 200 mg, oral, 3 TIMES DAILY PRN, 9 doses , Starting Tue08/08/18 at 1631, Until Tue08/09/18 at 1518, Pain, Routine No Frequency Medication Order 08/07/2018 08/08/2018 08/09/2018 phenazopyridine (PYRIDIUM) 100 mg tablet 1 dose, Starting Tue08/08/18 at 1634, Until Discontinued Linked Groups Order Group 1: ondansetron (PF) (ZOFRAN) injection 4 mgJump to med 4 mg, intravenous, EVERY 4 HOURS PRN, St arting Tue08/08/18 at 1759, Until Tue08/09/18 at 1518, Nausea, Routine Or ondansetron (ZOFRAN-ODT) disintegrating tablet 4 mgJump to med 4 mg, oral, EVERY 4 HOURS PRN, Starting Tue08/08/18 at 1759, Until Tue08/09/18 at 1518, Nausea, Routine documented in this encounter Orders Medications Ordered That Might Not Have Count Last Ord ered Date First Ordered Date Been Administered atropine 0.1 mg/mL syringe 0.5 mg 1 08/08/2018 diphenhydrAMINE (BENADRYL) elixir 12.5-25 1 2018 mg diphenhydrAMINE (BENADRYL) injection 12.5 1 2018 mg metoCLOPramide (REGLAN) injection 10 mg 1 08/08/19 19 naloxone (NARCAN) injection 0.2 mg 1 08/08/2018 ondansetron (PF) (ZOFRAN) injection 4 mg 2 ondansetron (ZOFRAN-ODT) disintegrating 08/08/19 19 tablet 4 mg phenazopyridine (PYRIDIUM) 100 mg tablet 1 019 Procedures Count Last Ordered Date First Ordered Date ECG REPORT - SCANNED 08/11/2018 Admission Count Last Ordered Date First Ordered Date STATUS: OUTPATIENT SURGICAL OP 1 08/08/2018 BED/SERVICES Transfer Count Last Ordered Date First Ordered Date NOTIFY PPS OF DISCHARGE COMPLETE 1 08/09/2018 NOTIFY PPS PATIENT ARRIVAL IN PACU 08/08/2018 NOTIFY PPS PATIENT TRANSFERRED OUT OF PACU 08/08 PPS NOTIFICATION OF PATIENT ARRIVAL ON 9 UNIT Discharge Count Last Ordered Date First Ordered Date DISCHARGE PATIENT 1 08/09/2018 documented in this encounter Care Teams Ad Copy Writer Relationship Specialty Start Date End Date Robson Antunez MPA-C PCP - General 08/04/18 [address] [place] [address] documented as of this encounter
--- OUTSIDE RECORDS SUMMARY | 2022-04-21 11:46 | XMS_ITS | Encounter Summary ---
:1990 Author Organization [facility] Address [address] [place] [address] Care Team Providers Name Role Phone Dagoberto Koch MD Primary Care Provider MARCO Rodriguez Benjamin Primary Care Provider [phone] Reason for Visit Reason Onset Date Comments Discuss Surgery 08/02/2018 Discuss Surgery 08/07/2018 Encounter Details Date Type Department Care Team Description 08/02/2018 Telephone [facility] Keshav Bland MD Discuss Surgery; Urology - [address] Discuss Surgery [address] [place] [address] [address] [place] [address] (Wo rk) Social History Tobacco Use Types Packs/Day Years Used Date Current Every Day Smoker 0.25 Smokeless Tobacco: Never Used Alcohol Use Standard Drinks/Week Comments Yes 0 (1 standard drink = 0.6 oz pure alcoho l) socially Sex Assigned at Date Recorded Not on file documented as of this encounter Miscellaneous Notes Telephone Encounter - Nahed Ballesteros - 08/07/2018 1345 EST Procedure confirmed with patient. Pt was instructed to check in 3rd floor registration at 10:00 for a procedure at 12:00 on 08/08/18. Ptwas instructed to have no solid food or liquids containing fats, including milk after midnight. The day of, pt can have water or other clear liquids until four hours before scheduled time of procedure.A courtesy bus driver will be needed. elephone Encounter - Lara Wen - 08/02/2018 0858 EST Reason for Call: Discuss Surgery Summary/Symptoms: Please call the home number to speak to pt today Lara Wen 08/02/2018 9:00 documented in this encounter Plan of Treatment Not on filedocumented as of this encounter Visit Diagnoses Not on filedocumented in this encounter Care Teams [employer] Field Agent Relationship Specialty Start Date End Date Dagoberto Koch MD PCP - General 01/12/18 08/03/18 [address] [place], [place] [id number] Robson Antunez MPA-C PCP - General 08/04/18 [address] [place], [place] [id number] documented as of this encounter
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
[2022-04-21 20:13] LABS: Abs Immature Grans 0.05 10^3/uL (0.0-0.06); Absolute Basophil Count 0.04 10^3/uL (0.0-0.2); Absolute Eosinophil Count 0.25 10^3/uL (0.0-0.7); Absolute Monocyte Count 0.68 10^3/uL (0.1-0.8); Basophils % 0.7; Eosinophils % 4.2; HCT 36.5 % (40.0-50.0); HGB 12.2 g/dL (13.5-17.5); Immature Grans % 0.8; Lymphocytes % 28.2; MCHC 33.4 % (32.0-36.0); MCV 93 fL (80-95); MPV 9.5 fL (8.0-11.0); Monocytes % 11.3; Neutrophils % 54.8; Platelet Count 321 10^3/uL (130-400); RBC 3.94 10^6/uL (4.36-5.78); RDW 14.5 % (11.8-14.1); RDW-SD 48.8 fL; WBC 6.02 10^3/uL (4.4-10.8)
[2022-04-21 20:26] LABS: ALT 16 U/L (16-63); AST 13 U/L (15-37); Albumin 3.9 g/dL (3.4-5.0); Alkaline Phosphatase 68 U/L (46-116); Anion Gap 10.4 mmol/L (3-11); BUN 10 mg/dL (7-18); Bilirubin, Total 0.3 mg/dL (0.2-1.0); CO2 27.6 mmol/L (21.0-32.0); CREATININE 0.6 mg/dL (0.70-1.30); Calcium 9.8 mg/dL (8.5-10.1); Chloride 100 mmol/L (98-107); Estimated GFR 133.18 (mL/min/1.73m2); Glucose 106 mg/dL (74-106); Potassium 4.1 mmol/L (3.5-5.1); Sodium 138 mmol/L (136-145); Total Protein 7.7 g/dL (6.4-8.2)
== END 2022-04-21 11:00 | disposition home or self-care (01) ==
LOC: NCHCN 10:59
PROVIDERS: PCP Physician Assistant; Visit Provider Physician Assistant
DX: D64.9 Anemia, unspecified (principal); N17.9 Acute kidney failure, unspecified
CPT/HCPCS: 80053; 85025

== ENCOUNTER 2022-06-07 18:10 | Outpatient (REF) | payer MEDICAID, SELFPAY ==
[2022-07-07 12:57] LABS: Fungus Smear No Fungi Seen
== END 2022-06-07 18:11 | disposition home or self-care (01) ==
LOC: NCHCN 18:10
PROVIDERS: PCP Physician Assistant; Visit Provider Nurse Practitioner Family
DX: T79.A22A Traumatic compartment syndrome of left lower extremity, initial encounter (principal)
CPT/HCPCS: 87077; 87101; 87102; 87206; 87070; 87186; 87205

== ENCOUNTER 2022-07-27 13:15 | Outpatient (REF) | payer MEDICAID, SELFPAY ==
--- OUTSIDE RECORDS SUMMARY | 2022-07-27 13:18 | XMS_ITS | Continuity of Care Document ---
:1990 Author Organization [facility] Address [address] [place] [address] Care Team Providers Name Role Phone Pau Strong Primary Care Physician [facility] Date(s): 07/22/22 - 07/22/[address] [phone] Encounter Diagnosis Abnormal echocardiogram (Discharge Diagnosis) - 07/22/22 Discharge Disposition: Home or Self Care Attending Physician: Danielle Victoria DO Admitting Physician: Danielle Victoria DO Referring Physician: Danielle Victoria DO Allergies, Adverse Reactions, Alerts No Known Medication Allergies Medications Entresto 24 mg-26 mg oral tablet 1 tab, Oral, BID, # 60 tab, 3 Refill(s), Pharmacy: [id number] Start Date: 05/20/22 Status: Orderedmetoprolol succinate 25 mg oral capsule, extended release 75 mg = 3 cap, Oral, Daily, # 90 cap, 3 Refill(s), Pharmacy: [id number] Start Date: 05/20/22 Status: Ordered Problem List Condition Confirmation Course Effective Dates Status Health Stat us Informant Disease caused by Confirmed 01/22/22 Active 2019 novel coronavirus1 1Problem added by Rule (IC_COVID19_AUTO_PROBLEM) following SARS-CoV-2 (COVID-19) RNA (ID Now) from Nasal collected on 22-JAN-2022 19:11:00 EDT tested positive for COVID-19. Social History Social History Type Response Tobacco Current everyday tobacco use r Tobacco Use:. 1 pack a day per day. Sex Male Patient Care team information PersonnelName: Pau Strong PA-C Address: Address: [address] [address]- [place]
--- OUTSIDE RECORDS SUMMARY | 2022-07-27 13:18 | XMS_ITS | Continuity of Care Document ---
:1990 Author Organization [facility] Address [address] [place] [address] Care Team Providers Name Role Phone Pau Strong Primary Care Physician Encounter [facility] Date(s): 05/12/22 - 05/12/[address] [address] Discharge Disposition: Home or Self Care Attending Physician: Pau Strong Admitting Physician: Pau Strong Referring Physician: Pau Strong Allergies, Adverse Reactions, Alerts No Known Medication Allergies Assessment and Plan Future Appointments Problem List Condition Confirmation Course Effective Dates Status Health Stat us Informant Disease caused by Confirmed 01/22/22 Active 2019 novel coronavirus1 1Problem added by Rule (IC_COVID19_AUTO_PROBLEM) following SARS-CoV-2 (COVID-19) RNA (ID Now) from Nasal collected on 22-JAN-2022 19:11:00 EDT tested positive for COVID-19. Social History Social History Type Response Sex Male Patient Care team information PersonnelName: Pau Strong Address: Address: [address] [address]
[2022-07-27 20:04] LABS: Bacteria Rare HPF (Negative); Crystals Rare Amorphous HPF (Negative); Epithelial Cells Rare HPF (Negative); Mucus Moderate (Negative); RBC 0-2 HPF (0-2); WBC 0-2 HPF (0-5)
[2022-07-27 20:05] LABS: C & S Indicated? C&S Done As Ordered
== END 2022-07-27 13:16 | disposition home or self-care (01) ==
LOC: NCHCN 13:15
PROVIDERS: PCP Physician Assistant; Visit Provider Physician Assistant
DX: R30.0 Dysuria (principal)
CPT/HCPCS: 81015; 87086

== ENCOUNTER 2024-01-25 11:52 | Outpatient (REF) | payer MEDICAID, SELFPAY ==
--- OUTSIDE RECORDS SUMMARY | 2024-01-25 11:57 | XMS_ITS | Continuity of Care Document ---
Author Name Unknown Organization [facility] Address [address] [place] [address] Care Team Providers Care Real Estate Instructor Name Role Phone Pau Strong Primary Care Physician Encounter [facility] Date(s): 02/02/23 - 02/02/23 [facility] [address] [place] [address] Discharge Disposition: Home Allergies, Adverse Reactions, Alerts No Known Medication Allergies Medications amitriptyline 50 mg oral tablet 30 EA, TAKE ONE TABLET BY MOUTH EVERY DAY IN THE EVENING, 0 Refill(s) Start Date: 01/27/23 Status: Ordered amLODIPine 10 mg oral tablet 30 EA, TAKE ONE TABLET BY MOUTH EVERY DAY, 0 Refill(s) Start Date: 01/27/23 Status: Ordered apixaban 5 mg oral tablet Oral, 5 Unknown, 1 Refill(s), 0 Refill(s) Start Date: 01/27/23 Status: Ordered ascorbic acid 250 mg oral tablet Oral, 250 Unknown, 4 Refill(s), Take 1 tablet by mouth daily., 0 Refill(s) Start Date: 01/27/23 Status: Ordered Entresto 24 mg-26 mg oral tablet 1 tab, Oral, BID, # 60 tab, 3 Refill(s), Pharmacy: [id number] Start Date: 11/15/22 Status: Ordered EPINEPHrine 0.3 mg injectable kit 1 Refill(s), Inject 0.3 mL IM once as needed for allergic reaction (Throat tight, difficulty breathing). Call 911 as directed., 0 Refill(s) Start Date: 01/27/23 Status: Ordered metoprolol succinate 25 mg oral capsule, extended release 75 mg = 3 cap, Oral, Daily, # 270 cap, 3 Refill(s), Pharmacy: [id number] Start Date: 09/06/22 Stop Date: 09/01/26 Status: Ordered nicotine 14 mg/24 hr transdermal film, extended release TD, 1 Refill(s), 0 Refill(s) Start Date: 01/27/23 Status: Ordered predniSONE 20 mg oral tablet Oral, 40 Unknown, 1 Refill(s), Take 2 tablets by mouth daily., 0 Refill(s) Start Date: 01/27/23 Status: Ordered Suboxone 8 mg-2 mg sublingual film 42 EA, PLACE 2 FILMS UNDER THE TONGUE EVERY DAY, 0 Refill(s) Start Date: 01/27/23 Status: Ordered Problem List Condition Confirmation Course Effective Dates Status Health St atus Informant Disease caused by 2019 novel coronavirus 1 Confirmed 01/22/22 Active 1Problem added by Rule (IC_COVID19_AUTO_PROBLEM) following SARS-CoV-2 (COVID-19) RNA (ID Now) from Nasal collected on 22-JAN-2022 19:11:00 EDT tested positive for COVID-19. Social History Social History Type Response Tobacco Current everyday tob acco user Tobacco Use:. 1 1/2 pack a day. Patient is smoking 2 packs a day per day. Sex Male Patient Care team information Care Team Personnel Name: Pau Strong PA-C Position: PowerChart View Only Member Role: Primary Care Physician Address: Address: [address] [address]- Care Team Related Persons Name: ALIX HOLLAND Address: Home
--- OUTSIDE RECORDS SUMMARY | 2024-01-25 11:57 | XMS_ITS | Continuity of Care Document ---
Author Name Unknown Organization [facility] Address [address] [place] [address] Care Team Providers Care Lead Process Engineer Name Role Phone Pau Strong Primary Care Physician Encounter [facility] Date(s): 02/02/23 - 02/02/23 [facility] [address] [place] [address] Encounter Diagnosis Cardiomyopathy(Discharge Diagnosis) - 02/02/23 Discharge Disposition: Home or Self Care Attending Physician: Jacky Aguillon MD Allergies, Adverse Reactions, Alerts No Known Medication Allergies Functional Status 02/02/23 Other exposure to Infectious Disease Non e Medications amitriptyline 50 mg oral tablet 30 [...] BID, # 60 tab, 3 Refill(s), Pharmacy: [id number] Start Date: 11/15/22 Status: Ordered EPINEPHrine 0.3 mg injectable kit 1 Refill(s), Inject 0.3 mL IM once as needed for allergic reaction (Throat tight, difficulty breathing). Call 911 as directed., 0 Refill(s) Start Date: 01/27/23 Status: Ordered metoprolol succinate 25 mg oral capsule, extended release 75 mg = 3 cap, Oral, Daily, # 270 cap, 3 Refill(s), Pharmacy: [facility] Start Date: 09/06/22 Stop Date: 09/01/26 [...] 22-JAN-2022 19:11:00 EDT tested positive for COVID-19. Vital Signs Most recent to oldest [Reference Range]: 1 Peripheral Pulse Rate [60-100 bpm] 92 bp m (02/02/23 9:48 AM) Blood Pressure [90-140/60-90 mmHg] 128/7 2mmHg (02/02/23 9:48 AM) Weight 124.9 kg (02/02/23 9:48 AM) Weight Measured (lbs) 275.357 lb (02/02/23 9:48 AM) Social History Social History Type Response Tobacco Current everyday tob acco user Tobacco Use:. 1 1/2 pack a day. Patient is smoking 2 packs a day per day. Sex Male Physician Outpatient Note * Jacky Aguillon MD: PERFORM Event Display: Office Clinic Note Physician Authored Date: [id number] ERIC HOLLAND :1990 Age:32 years Sex:Male Visit Date:02/02/2023 Primary Care Physician: Pau Strong PA-C History of Present Illness Cardiac problems: 1. 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 This is a 32 year old man that I last saw on 08/31/22 for follow up from syncope after drug dose. Atthat visit, we discussed his nuclear stress test. I recommended that he have a repeat echocardiogram, which he completed on 09/07/22 that showed an EF of 40-45%. He is here today for follow up and to discuss findings. ?? It does not appear that an echo was performed. ??We do not see the order; this may have simply beenan error on our part. ?? Eric continues to feel healthy. ??There is no chest pain, orthopnea, PND, palpitations, syncope, dyspnea vision.?? There is some mild lower extremity edema, left greater than right, which is chronic and unchanged now for quite some time. ?? He is not exercising regularly but does walk??frequently including??at least 10-minute walk every day and he feels healthy with that. Review of Systems A complete review of systems is negative other than as noted in the history of present illness. Physical Exam Vitals & Measurements HR:??92??(Peripheral)?? BP:??128/72?? SpO2:??95%?? WT:??124.9??kg?? HEENT: Normocephalic, atraumatic Respirations: Clear to auscultation bilaterally with no wheezes rubs or rhonchi Cardiac: Irregularly irregular, normal S1, S2, no murmurs gallops or rubs Abdomen: Nontender nondistended normal active bowel sounds Extremities: 2+ dorsalis pedis pulses bilaterally with no significant edema Medical Decision Making Data Reviewed: 05/12/2022: Echocardiogram: Ejection fraction 35 to 40%??with mild diffuse hypokinesis, normal valvular function. ?? : Lexiscan nuclear stress test: LVEF 49%, no ischemia. Echo: 09/07/22. EF of 40-45%. Regional wall motion abnormalities. No hemodynamically significant valve disease. PAP are est at 21 mmHg. Maybe higher due to inadequate TR jet. Prior PAP 20-30 mmHg. EK02/02/2023: Sinus rhythm 84 bpm. ??Axes and intervals are within normal limits. ??No evidence ofischemia or prior infarct ?? 32-year-old gentleman is doing well. ??Cardiomyopathy:??This was in the setting of an acute overdose, and we expect the ejection fraction in the 40s to have normalized by now.?? We tried to arrange for an echo, but it seems that order either was never placed or has been lost. ??We will reorder the echo. ?? No other changes at this point. ??There is no need for routine follow-up; I have asked him to be intouch with us if he sees anything funny on echo report, but I do not anticipate anything at this point. ??Glad to see that he is feeling healthy. ?? Glad to see??Eric is??doing well. ??No need for routine follow-up. ??Thank you for allowing us to participate in his care. Clinic Assessment/Plan Cardiomyopathy??I42.9 Actions: COMPLETED - 44200 Office/Outpatient Visit - Established Patient, Level 3 (20-29 min)., 02/02/23 9:40:00 EDT, Cardiomyopathy COMPLETED - CV ECG Clinic, 02/02/23 9:48:00 EDT, Routine, Reason: Other (please specify), Stop dateand time 02/02/23 9:48:00 EDT, Cardiomyopathy, ORD_SET_REQ_DT_RANGE, Manolo's Internal Person Id FUTURE - Echocardiogram Complete, 02/02/23, Order for future visit, Cardiomyopathy COMPLETED - Follow-Up Appointment Request [facility], 02/02/23 9:40:00 EDT, In Approximately, [facility], 02/02/23 9:40:00 EDT ?? Problem List/Past Medical History Ongoing Disease caused by 2019 novel coronavirus Historical No qualifying data Medications What How Much When Instructions Unchanged amitriptyline (amitriptyline 50 mg oral tablet) 30 EA, TAKE ONE TABLET BY MOUTH EVERY DAY IN THE EVENING ?? Unchanged amLODIPine (amLODIPine 10 mg oral tablet) 30 EA, TAKE ONE TABLET BY MOUTH EVERY DAY ?? Unchanged apixaban (apixaban 5 mg oral tablet) Oral (given by mouth) 5 Unknown, 1 Refill(s) ?? Unchanged ascorbic acid (ascorbic acid 250 mg oral tablet) Oral (given by mouth) 250 Unknown, 4 Refill(s), Take 1 tablet by mouth daily. ?? Unchanged buprenorphine-naloxone (Suboxone 8 mg-2 mg sublingual film) 42 EA, PLACE 2 FILMS UNDER THE TONGUE EVERY DAY ?? Unchanged EPINEPHrine (EPINEPHrine 0.3 mg injectable kit) 1 Refill(s), Inject 0.3 mL IM once as needed for allergic reaction (Throat tight, difficulty breathing). Call 911 as directed. ?? Unchanged metoprolol (metoprolol succinate 25 mg oral capsule, extended release) 3 Capsules Oral (given by mouth) Every day Duration: 52 weeks Unchanged nicotine (nicotine 14 mg/ 24 hr transdermal film, extended release) Transdermal (apply on the skin) 1 Refill(s) ?? Unchanged predniSONE (predniSONE 20 mg oral tablet) Oral (given by mouth) 40 Unknown, 1 Refill(s), Take 2 tablets by mouth daily. ?? Unchanged sacubitril-valsartan (Entresto 24 mg-26 mg oral tablet) 1 tab Oral (given by mouth) 2 times a day Allergies No Known Medication Allergies Social History Alcohol Past, Beer- Comments: on the weekends quite a lot Electronic Cigarette/Vaping Electronic Cigarette Use: Never. Substance Use Past, Cocaine, Heroin, fentinyl, 3-5 times per week Tobacco Current everyday tobacco user Tobacco Use:. 1 1/2 pack a day. Patient is smoking 2 packs a day per day. Electronically Signed on 02/02/23 10:11 AM Jacky Aguillon MD Patient Care team information Care Team Personnel Name: Pau Strong PA-C Position: PowerChart View Only Member Role: Primary Care Physician Address: Address: [address] [address]- Care Team Related Persons Name: AMALIA ERIC Address: Home
--- OUTSIDE RECORDS SUMMARY | 2024-01-25 11:57 | XMS_ITS | Continuity of Care Document ---
Author Name Unknown Organization [facility] Address [address] [place] [address] Care Team Providers Care Soap Chipper Name Role Phone Pau Strong Primary Care Physician [phone] [facility] Date(s): 08/05/23 - 08/05/23 [facility] [address] [place] [address] Encounter Diagnosis Cardiomyopathy(Discharge Diagnosis) - 08/05/23 Discharge Disposition: Home or Self Care Attending Physician: Jacky Aguillon MD Allergies, Adverse Reactions, Alerts No Known Medication Allergies Medications apixaban 5 mg oral tablet Oral, 5 Unknown, 1 Refill(s), 0 Refill(s) Start Date: 01/27/23 Status: Ordered ascorbic acid 250 mg oral tablet Oral, 250 Unknown, 4 Refill(s), Take 1 tablet by mouth daily., 0 Refill(s) Start Date: 01/27/23 Status: Ordered EPINEPHrine 0.3 mg injectable kit [...] Range]: 1 Peripheral Pulse Rate [60-100 bpm] 71 bp m (08/05/23 9:18 AM) Blood Pressure [90-140/60-90 mmHg] 122/6 9mmHg (08/05/23 9:18 AM) Mean Arterial Pressure, Cuff [70-110 mmH g] 87 mmHg (08/05/23 9:18 AM) Weight 126.05 kg (08/05/23 9:18 AM) Weight Measured (lbs) 277.892 lb (08/05/23 9:18 AM) Weight Dosing 126.050 kg (08/05/23 9:18 AM) Height 186.69 cm (08/05/23 9:18 AM) Height/Length Measured (inches) 73.5 inc h (08/05/23 9:18 AM) BSA Measured 2.56 m2 (08/05/23 9:18 AM) Body Mass Index 36.17 kg/m2 (08/05/23 9:18 AM) Social History Social History Type Response Tobacco Current everyday tob acco user Tobacco Use:. 1 1/2 pack a day. Patient is smoking 2 packs a day per day. Sex Male Physician Outpatient Note * Jacky Aguillon MD: PERFORM Event Display: Office Clinic Note Physician Authored Date: [id number] ERIC HOLLAND :1990 Age:32 years Sex:Male Visit Date:08/05/2023 Primary Care Physician: Pau Strong PA-C History of Present Illness Cardiac problems: 1. 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 This is a 32 year old man that I saw in clinic on 02/02/23. He overall felt well and had no complaints. I arranged for an echo and he is here today to discuss results, which were reassuring; ejection fraction has normalized. ??Valvular function is normal. ?? He remains asymptomatic; there is no chest pain, orthopnea, PND, palpitations, syncope, dyspnea exertion. ??There is some lower extremity edema??which sounds fairly mild; the more he is??on his feet the worse it gets. ?? He is not exercising much; he does very strenuous work such as cutting, stacking, carrying firewood, but that comes in bursts; he??is not doing anything regularly. Review of Systems A complete review of systems is negative other than as noted in the history of present illness. Physical Exam Vitals & Measurements HR:??71??(Peripheral)?? BP:??122/69?? SpO2:??95%?? HT:??186.69??cm?? WT:??126.05??kg?? BMI:??36.17?? BSA:??2.56?? HEENT: Normocephalic, atraumatic Respirations: Clear to auscultation bilaterally with no wheezes rubs or rhonchi Cardiac: Regular rate and rhythm, normal S1, S2, no murmurs gallops or [...] limits. ??No evidence ofischemia or prior infarct Echo: 07/29/23. EF 60-65 with normal wall motion. Diastolic indices appear normal, no evidence of elevated left sided filling pressures. PAP could not be obtained due to inadequate TR jet. EK08/05/2023: Sinus rhythm at 67 bpm. ??Axes and intervals within normal limits. ??No evidence of ischemia or prior infarct. ?? 32-year-old gentleman??who is doing well. ?? Cardiomyopathy: This??occurred in the setting of an acute overdose, and his ejection fraction has now normalized. ??He had a normal stress test.?? He is exercising fairly regularly. ??He had been on Entresto and metoprolol, and would like to stop both.?? I made the case that perhaps it is the medications that are responsible for the improvement, but I suspect this is really simply a matter of time??since his overdose, and I do not think this medications are necessary.?? Will recheck an echo in 6 months, with him off of Entresto and metoprolol, to see how he is doing. ?? We spent the first few minutes of the visit trying to figure out why he is taking??Eliquis, which he listed as one of his medications; it turns out that this was an error; he meant to say Entresto. ?? There is no need for any routine follow-up.?? I had not scheduled him for a follow-up after his last visit either, but he is here to review results. ??I do not need to see him??again unless there is a problem with his follow-up echo in 6 months, or if there are any additional questions going forward.?? It is always a pleasure to see Eric, and I am glad to see he is doing well. Clinic Assessment/Plan Cardiomyopathy??I42.9 Actions: COMPLETED - 77569 Office/Outpatient Visit - Established Patient, Level 3 (20-29 min)., 08/05/23 9:07:00 EST, Cardiomyopathy COMPLETED - CV ECG Clinic, 08/05/23 9:18:00 EST, Routine, Reason: Other (please specify), Stop dateand time 08/05/23 9:18:00 EST, Cardiomyopathy, ORD_SET_REQ_DT_RANGE, Manolo's Internal Person Id FUTURE - Echocardiogram Complete, 08/05/23, Order for future visit, Cardiomyopathy ?? Problem List/Past Medical History Ongoing Disease caused by 2019 novel coronavirus Historical No qualifying data Medications What How Much When Instructions Unchanged apixaban (apixaban 5 mg oral tablet) [...] difficulty breathing). Call 911 as directed. ?? Allergies No Known Medication Allergies Social History Alcohol Past, Beer- Comments: on the weekends quite a lot Electronic Cigarette/Vaping Electronic Cigarette Use: Never. Substance Use Past, Cocaine, Heroin, fentinyl, 3-5 times per week Tobacco Current everyday tobacco user Tobacco Use:. 1 1/2 pack a day. Patient is smoking 2 packs a day per day. Electronically Signed on 08/05/23 09:57 AM Jacky Aguillon MD Patient Care team information Care Team Personnel Name: Pau Strong PA-C Position: PowerChart View Only Member Role: Informed Provider Address: Address: [address] [address]- Care Team Related Persons Name: JUSTYNA HOLLAND Name: REMA HOLLAND Name: ERIC HOLLAND
--- OUTSIDE RECORDS SUMMARY | 2024-01-25 11:57 | XMS_ITS | Continuity of Care Document ---
Author Name Unknown Organization [facility] Address [address] [place] [address] Care Team Providers Care Signal Intelligence Analyst Name Role Phone Pau Strong Primary Care Physician [phone] [facility]counter [facility] Date(s): 01/03/24 - 01/03/24 [facility] [address] [place] [address] Discharge Disposition: Home Allergies, Adverse Reactions, Alerts No Known Medication Allergies Assessment and Plan Future Appointments Medications apixaban 5 mg oral tablet Oral, [...] Only Member Role: Informed Provider Address: Address: [address] [address]- [place] Care Team Related Persons Name: JUSTYNA HOLLAND Address: Home Name: REMA HOLLAND Address: Home Name: ALIX HOLLAND
--- OUTSIDE RECORDS SUMMARY | 2024-01-25 11:58 | XMS_ITS | Continuity of Care Document ---
Author Name Unknown Organization [facility] Address [address] [place] [address] Care Team Providers Care Principal Trainer Name Role Phone Pau Strong Primary Care Physician [phone] Encounter [facility] Date(s): 02/02/23 - 02/02/[address] [address] Discharge Disposition: Home or Self Care Attending Physician: Pretty Campoverde Admitting Physician: Pretty Campoverde Referring Physician: Pretty Campoverde Allergies, Adverse Reactions, Alerts No Known Medication Allergies Assessment and Plan Diagnostic Tests Pending * Hepatitis B Core Total Abs, S [place] 02/02/23 * Hepatitis C Virus Genotype, [place] 02/02/23 Medications amitriptyline 50 mg oral tablet 30 [...] BID, # 60 tab, 3 Refill(s), Pharmacy: [id number] Start Date: 11/15/22 Status: Ordered EPINEPHrine 0.3 mg injectable kit 1 Refill(s), Inject 0.3 mL IM once as needed for allergic reaction (Throat tight, difficulty breathing). Call 911 as directed., 0 Refill(s) Start Date: 01/27/23 Status: Ordered metoprolol succinate 25 mg oral capsule, extended release 75 mg = 3 cap, Oral, Daily, # 270 cap, 3 Refill(s), Pharmacy: [id number] Start Date: 09/06/22 Stop Date: 09/01/26 [...] 22-JAN-2022 19:11:00 EDT tested positive for COVID-19. Results Laboratory List Name Date CBC w/ Diff 02/02/23 Comprehensive Metabolic Panel 02/02/23 GGT 02/02/23 HIV 1/2 Ag and Ab, 4th Generation [facility] 02/02/23 Hepatitis A Total Antibody w/Rflx [facility] 02/02/23 Hepatitis B Surface Antibody [facility] 02/02/23 Hepatitis B Surface Antigen [facility] 02/02/23 Hepatitis C Ab w/Rflx to HCV RNA PCR [facility] 02/02/23 .Manual Differential ([facility]) 02/02/23 Most recent to oldest [Reference Range]: 1 WBC [5.0-10.0 x10^3/mcL] 6.8 x10^3/mcL (02/02/23 10:49 AM) RBC [4.6-6.0 x10^6/mcL] 5.4 x10^6/mcL (02/02/23 10:49 AM) Segs Man [40-75 %] 52 % (02/02/23 10:49 AM) Lymph Man [20-50 %] 34 % (02/02/23 10:49 AM) [place] Man [2-15 %] 8 % (02/02/23 10:49 AM) Eos Man [1-6 %] 5 % (02/02/23 10:49 AM) BUN [7-18 mg/dL] 9 mg/dL (02/02/23 10:49 AM) Glucose Level [74-106 mg/dL] 100 mg/dL (02/02/23 10:49 AM) Potassium Level [3.5-5.1 mmol/L] 3.8 mmo l/L (02/02/23 10:49 AM) MCV [80.0-96.0 fL] 92.8 fL (02/02/23 10:49 AM) RBC Morph Normal (02/02/23 10:49 AM) AST [15-37 unit/L] 29 unit/L (02/02/23 10:49 AM) ALT [16-63 unit/L] 72 unit/L *HI* (02/02/23 10:49 AM) MCHC [31.0-35.0 g/dL] 34.7 g/dL (02/02/23 10:49 AM) Sodium Level [136-145 mmol/L] 138 mmol/L (02/02/23 10:49 AM) Hct [41.0-51.0 %] 50.2 % (02/02/23 10:49 AM) Calcium Level [8.5-10.1 mg/dL] 9.0 mg/dL (02/02/23 10:49 AM) Albumin Level [3.4-5.0 g/dL] 3.7 g/dL (02/02/23 10:49 AM) Protein Total [6.4-8.2 g/dL] 7.3 g/dL (02/02/23 10:49 AM) MCH [26.0-32.0 pg] 32.2 pg *HI* (02/02/23 10:49 AM) Bilirubin Total [0.2-1.0 mg/dL] 0.5 mg/d L (02/02/23 10:49 AM) Hgb [14.0-18.0 g/dL] 17.4 g/dL (02/02/23 10:49 AM) Alk Phos [46-146 unit/L] 86 unit/L (02/02/23 10:49 AM) Band Man [0-5 %] 0 % (02/02/23 10:49 AM) Platelets [130-450 x10^3/mcL] 226 x10^3/ mcL (02/02/23 10:49 AM) CO2 [21-32 mmol/L] 25 mmol/L (02/02/23 10:49 AM) GGT [15-85 unit/L] 48 unit/L (02/02/23 10:49 AM) eGFR Non-AA [>=60] 120 (02/02/23 10:49 AM) eGFR AA [>=60] 120 (02/02/23 10:49 AM) Chloride Level [98-107 mmol/L] 102 mmol/ L (02/02/23 10:49 AM) RDW-CV [11.5-14.5 %] 12.6 % (02/02/23 10:49 AM) Slide Review Man Diff (02/02/23 10:49 AM) Abs Neut Man 3.5 x10^3/mcL *NA* (02/02/23 10:49 AM) Creatinine Level [0.70-1.30 mg/dL] 0.82 mg/dL (02/02/23 10:49 AM) Hep B Surface Ag [facility] [Negative] Negative 1 *NA* (02/02/23 10:49 AM) Hep C Antibody [facility] [Negative] Negative 2 *NA* (02/02/23 10:49 AM) HIV 1 and 2 Ab/p24 Ag, 4th Gen [facility] [Nega tive] Negative 3 *NA* (02/02/23 10:49 AM) Hep B Surface Ab, Qualitative [facility] [See N ote] Positive 4 *NA* (02/02/23 10:49 AM) Hep B Surface Ab, Quantitative [facility] [See Note mIntlUnit/mL] 856.6 mIntlUnit/mL 5 *NA* (02/02/23 10:49 AM) Hepatitis A Antibody, Total [facility] [Negativ e] Negative 6 *NA* (02/02/23 10:49 AM) Baso Man [0-1 %] 1 % (02/02/23 10:49 AM) 1Result Comment: Test performed [place] [address] 2Result Comment: Test performed [place] [address] 3Result Comment: If acute HIV-1 infection is suspected in a high risk patient, submit plasma specimen for HIV-1 RNA quantitation test. Fourth Generation assay performed on the Siemens Centaur XPT. Test performed [place] [address] 4Result Comment: Reference Range for Hep B Surface Ab, Qual: Unvaccinated: Negative Vaccinated: Positive 5Result Comment: Reference Range for Hep B Surface Ab, Quant: Positive: >= 10.0 mIU/mL Negative: < 10.0 mIU/mL Patient is presumed to be immune to infection with Hepatitis B Virus. Test performed [place] [address] 6Result Comment: The result of this assay can be falsely elevated (Positive) due to the consumption of Biotin. Test performed [place] [address] Social History Social History Type Response Tobacco Current everyday tob acco user Tobacco Use:. 1 1/2 pack a day. Patient is smoking 2 packs a day per day. Sex Male Patient Care team information Care Team Personnel Name: Pau Strong PA-C Position: PowerChart View Only Member Role: Primary Care Physician Address: Address: [facility] [address] [place] [address]- Care Team Related Persons Name: ALIX HOLLAND Address: Home
--- OUTSIDE RECORDS SUMMARY | 2024-01-25 11:58 | XMS_ITS | Continuity of Care Document ---
Author Name Unknown Organization [facility] Address [address] [place] [address] Care Team Providers Care Central Scheduler Name Role Phone Pau Strong Primary Care Physician [phone] Encounter [facility] [id number] Date(s): 09/07/22 - 09/07/[address] [id number] Discharge Disposition: Home or Self Care Attending Physician: Jacky Aguillon MD Admitting Physician: Jacky Aguillon MD Referring Physician: Jacky Aguillon MD Allergies, Adverse Reactions, Alerts No Known Medication Allergies Medications Entresto 24 mg-26 mg oral tablet 1 tab, Oral, BID, # 60 tab, 3 Refill(s), Pharmacy: [id number] Start Date: 05/20/22 Status: Ordered METOPROLOL SUCC ER 25 MG TAB METOPROLOL SUCC ER 25 MG TAB, 3 tab, Oral, Daily, # 90 tab, 3 Refill(s), Pharmacy: [id number] Start Date: 08/04/22 Status: Ordered metoprolol succinate 25 mg oral capsule, extended release 75 mg = 3 cap, Oral, Daily, # 270 cap, 3 Refill(s), Pharmacy: [id number] Start Date: 09/06/22 Stop Date: 09/01/26 Status: Ordered Problem List Condition Confirmation Course [...] user Tobacco Use:. 1 1/2 pack a day per day. Sex Male Patient Care team information Personnel Name: Pau Strong PA-C Address: Address: [id number] [place] [address]
--- OUTSIDE RECORDS SUMMARY | 2024-01-25 11:58 | XMS_ITS | Continuity of Care Document ---
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 THP doxycycline monohydrate 100 mg Cap, 1 EA, Oral vancomycin, 1500 mg, IV Piggyback Zosyn, 3.375 g, IV Piggyback Lab Test Name Test Result Date/Time WBC 7.1 x10^3/mcL 05/14/2023 22:34 EDT RBC 5.1 x10^6/mcL 05/14/2023 22:34 EDT Hgb 16.8 g/dL 05/14/2023 22:34 EDT Hct 48.6 % 05/14/2023 22:34 EDT MCV 94.7 fL 05/14/2023 22:34 EDT MCH 32.7 pg 05/14/2023 22:34 EDT MCHC 34.6 g/dL 05/14/2023 22:34 EDT RDW-CV 12.8 % 05/14/2023 22:34 EDT Platelets 230 x10^3/mcL 05/14/2023 22:34 EDT Neutro Auto 51.0 % 05/14/2023 22:34 EDT Lymph Auto 32.8 % 05/14/2023 22:34 EDT Lincoln Auto 10.9 % 05/14/2023 22:34 EDT Eos, Auto 3.1 % 05/14/2023 22:34 EDT Basophil Auto 0.7 % 05/14/2023 22:34 EDT Imm Gran Auto 1.5 % 05/14/2023 22:34 EDT Neutro Absolute 3.6 x10^3/mcL 05/14/2023 22:34 EDT Sodium Level 138 mmol/L 05/14/2023 23:06 EDT Potassium Level 4.0 mmol/L 05/14/2023 23:06 EDT Chloride Level 102 mmol/L 05/14/2023 23:06 EDT CO2 24 mmol/L 05/14/2023 23:06 EDT BUN 8 mg/dL 05/14/2023 23:06 EDT Glucose Level 144 mg/dL 05/14/2023 23:06 EDT Creatinine Level 1.20 mg/dL 05/14/2023 23:06 EDT eGFR AA 83 05/14/2023 23:06 EDT eGFR Non-AA 83 05/14/2023 23:06 EDT Calcium Level 8.8 mg/dL 05/14/2023 23:06 EDT Lactic Acid Lvl 2.6 mmol/L 05/14/2023 22:34 EDT CRP 16.6 mg/L 05/14/2023 22:34 EDT Procalcitonin <0.15 ng/mL 05/14/2023 22:34 EDT SARS-CoV-2 (COVID-19) RNA (ID Now) Not Detected 05/14/2023 22:49 EDT Patient/Oracle Bpm Developer Signature Patient Name:AMALIA ALIX Hua I have received this information and my questions have been answered. Patient/Oracle Bpm Developer Name: Patient/Oracle Bpm Developer Signature: Relationship to Patient: Witness Name/Signature: Date: Electronically Signed on: 05/15/2023 02:09 EDTSigned by:SOFIA Emergency department Note * Elsa Flores H: PERFORM Event Display: ED Notes Authored Date: [id number] Patient Care team information Care Team Personnel Name: Pau Strong PA-C Position: PowerChart View Only Member Role: Informed Provider Address: Address: [facility] [address], [place] [address] Name: Nicholas León Position: Nurse Member Role: Registered Nurse Name: Denis Rios RN Position: Nurse Member Role: ED Nurse Name: Alfonso Au MD Position: Physician Member Role: Admitting Physician Care Team Related Persons Name: JUSTYNA HOLLAND Name: REMA HOLLAND Name: ALIX HOLLAND
--- OUTSIDE RECORDS SUMMARY | 2024-01-25 11:58 | XMS_ITS | Continuity of Care Document ---
Author Name Unknown Organization [facility] Address [address] [place] [address] Care Team Providers Care Signal Integrity Engineer Name Role Phone Pau Strong Primary Care Physician Encounter [facility] Date(s): 07/29/23 - 07/29/[address] [address] Discharge Disposition: Home or Self Care Attending [...] Only Member Role: Informed Provider Address: Address: [id number] [place] [address] Care Team Related Persons Name: JUSTYNA HOLLAND Name: REMA HOLLAND Name: ALIX HOLLAND
--- OUTSIDE RECORDS SUMMARY | 2024-01-25 11:58 | XMS_ITS | Continuity of Care Document ---
Author Name Unknown Organization [facility] Address [address] [place] [address] Care Team Providers Care Rn Imaging Name Role Phone Pau Strong Primary Care Physician Encounter [facility] Date(s): 08/31/22 - 08/31/22 [facility] [address] [place] [address] Encounter Diagnosis Cardiomyopathy(Discharge Diagnosis) - 08/31/22 Discharge Disposition: Home or Self Care Attending Physician: Jacky Aguillon MD Allergies, Adverse Reactions, Alerts No Known Medication Allergies Functional Status 08/31/22 Other exposure to Infectious Disease Non e Medications Entresto 24 mg-26 mg oral tablet 1 tab, Oral, BID, # 60 tab, 3 Refill(s), Pharmacy: [id number] Start Date: 05/20/22 Status: Ordered METOPROLOL SUCC ER 25 MG TAB METOPROLOL SUCC ER 25 MG TAB, 3 tab, Oral, Daily, # 90 tab, 3 Refill(s), Pharmacy: [id number] Start Date: 08/04/22 Status: Ordered Metoprolol Succinate ER 25 mg oral tablet, extended release See Instructions, TAKE THREE TABLETS BY MOUTH EVERY DAY, # 90 tab, 3 Refill(s), Pharmacy: [id number] Start Date: 08/30/22 Status: Ordered Problem List Condition Confirmation Course Effective Dates Status Health [facility] Informant Disease caused by 2019 novel coronavirus 1 Confirmed 01/22/22 Active 1Problem added by Rule (IC_COVID19_AUTO_PROBLEM) following SARS-CoV-2 (COVID-19) RNA (ID Now) from Nasal collected on 22-JAN-2022 19:11:00 EDT tested positive for COVID-19. Vital Signs Most recent to oldest [Reference Range]: 1 Peripheral Pulse Rate [60-100 bpm] 103 b pm *HI* (08/31/22 1:24 PM) Blood Pressure [90-140/60-90 mmHg] 125/7 9mmHg (08/31/22 1:24 PM) Weight 118.7 kg (08/31/22 1:24 PM) Weight Measured (lbs) 261.688 lb (08/31/22 1:24 PM) Social History Social History Type Response Tobacco Current everyday tob acco user Tobacco Use:. 1 1/2 pack a day per day. Sex Male Physician Outpatient Note * Jacky Aguillon MD: PERFORM Event Display: Office Clinic Note Physician Authored Date: [id number] ALIX HOLLAND :1990 Age:31 years Sex:Male Visit Date:08/31/2022 Primary Care Physician: Pau Strong PA-C Chief Complaint 118.7 History of Present Illness Cardiac problems: 1. 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 This is a 31 year man who last saw Dr. Victoria on May 20 2022 after drug overdose with associated rhabdomyolysis and cardiomyopathy. She arranged for a stress test and he is here to follow-up those results, which were reassuring. ?? I reviewed with him that the nuclear stress test estimation of ejection fraction is often very misleading. ??I do want a repeat an echocardiogram.?? I believe at this point it has been a few months since his acute illness, and I would suspect that his LV would return to normal function. ??If not, we may need to talk about defibrillator, which I mentioned briefly, but did not get into detail as that is reasonably unlikely. ?? He continues to feel well from a cardiac perspective. ??He is walking a few hours at a time almost every day. ??There is no chest pain, orthopnea, PND, palpitations, syncope. ??There is lower extremity edema, left greater than right.?? Amlodipine may be contributing to that, but is unlikely to be causing unilateral edema on its own.?? This is almost certainly a consequence of the rhabdomyolysis, and it has been gradually improving. Review of Systems A complete review of systems is negative other than as noted in the history of present illness. Physical Exam Vitals & Measurements HR:??103??(Peripheral)?? BP:??125/79?? SpO2:??97%?? WT:??118.7??kg?? HEENT: Normocephalic, atraumatic Respirations: Clear to auscultation bilaterally with no wheezes rubs or rhonchi Cardiac: Regular rate and rhythm, normal S1, S2, no murmurs gallops or rubs Abdomen: Nontender nondistended normal active bowel sounds Extremities: 2+ dorsalis pedis pulses bilaterally edema Assessment/Plan Cardiomyopathy??I42.9 Ordered: CV ECG Clinic, 08/31/22 13:22:00 EST, Routine, Reason: Other (please specify), Stop date and time 08/31/22 13:22:00 EST, Cardiomyopathy, ORD_SET_REQ_DT_RANGE, [facility] Person Id Echocardiogram Complete, 08/31/22, Cardiomyopathy-Secondary, Order for future visit, Cardiomyopathy Follow-Up Appointment Request [facility], *Est. 02/28/23 +/- 28 days, Future Order, [facility] ?? 05/12/2022: Echocardiogram: Ejection fraction 35 to 40%??with mild diffuse hypokinesis, normal valvular function. ?? : Lexiscan nuclear stress test: LVEF 49%, no ischemia. ?? 31 year old man with recent cardiomyopathy after drug overdose and rhabdo. ?? Cardiomyopathy: This may be improving, although the nuclear study LVEF estimate is not reliable, and we will repeat an echocardiogram to confirm, and to ensure that we do not need to pursue ICD. The cause of the cardiomyopathy appears to have been acute illness rather than coronary disease, which is as expected with this history. ?? I would expect ejection fraction to have improved.?? I reviewed this with the patient. ??We willcheck echo soon. ??I will see him back here in the office in 6 months; if things are stable betweennow and then, he will be discharged back to primary care at that point.?I am thrilled to see that he is exercising, that his edema is improving, and he remains without any cardiac symptoms at this point. Problem List/Past Medical History Ongoing Disease caused by 2019 novel coronavirus Historical No qualifying data Medications Entresto 24 mg-26 mg oral tablet, 1 tab, Oral, BID, 3 refills METOPROLOL SUCC ER 25 MG TAB, 3 tab, Oral, Daily Metoprolol Succinate ER 25 mg oral tablet, extended release, See Instructions Allergies No Known Medication Allergies Social History Alcohol Past, Beer- Comments: on the weekends quite a lot Electronic Cigarette/Vaping Electronic Cigarette Use: Never. Substance Use Past, Cocaine, Heroin, fentinyl, 3-5 times per week Tobacco Current everyday tobacco user Tobacco Use:. 1 1/2 pack a day per day. Electronically Signed on 08/31/22 01:48 PM Jacky Aguillon MD Patient Care team information Personnel Name: Pau Strong PA-C Address: Address: [facility] [address] [place] [id number]
[2024-01-25 20:25] LABS: HCT 50.9 % (40.0-50.0); HGB 17.7 g/dL (13.5-17.5); MCH 31.9 pg (27.0-33.0); MCHC 34.8 % (32.0-36.0); MCV 92 fL (80-95); MPV 9.9 fL (8.0-11.0); Platelet Count 231 10^3/uL (130-400); RBC 5.54 10^6/uL (4.36-5.78); RDW 12.5 % (11.8-14.1); RDW-SD 42.1 fL; WBC 7.59 10^3/uL (4.4-10.8)
[2024-01-25 20:56] LABS: ALT 82 U/L (16-63); AST 29 U/L (15-37); Alkaline Phosphatase 75 U/L (46-116); BUN 13 mg/dL (7-18); Bilirubin, Total 0.62 mg/dL (0.2-1.0); CREATININE 0.8 mg/dL (0.70-1.30); Calcium 9.1 mg/dL (8.5-10.1); Chloride 103 mmol/L (98-107); Estimated GFR 120.59 (mL/min/1.73m2); Glucose 105 mg/dL (74-106); Potassium 4.3 mmol/L (3.5-5.1); Sodium 139 mmol/L (136-145); Total Protein 7.4 g/dL (6.4-8.2)
[2024-01-26 18:50] LABS: Hepatitis C Ab w Rflx HCV PCR Negative (Negative)
[2024-01-26 18:56] LABS: HIV-1/2 Ag & Ab Screen Negative (Negative)
== END 2024-01-25 11:53 | disposition home or self-care (01) ==
LOC: NCHCN 11:52
PROVIDERS: PCP Physician Assistant; Visit Provider Physician Assistant
DX: I10 Essential (primary) hypertension (principal); Z11.4 Encounter for screening for human immunodeficiency virus [HIV]; Z11.59 Encounter for screening for other viral diseases
CPT/HCPCS: 80053; 85027; 86803; 87389

== ENCOUNTER 2024-06-04 07:16 | Emergency (ER) | payer MEDICAID, SELFPAY ==
[2024-06-04 07:25] VITALS: BP 155/99; PULSE 80; RESP 18; TEMP 37.1; O2SAT 99
--- NOTE | 2024-06-04 08:14 | ED.GENADUL_ITS ---
Discharge Plan Disposition Patient Disposition: Home Condition: Good Discharge Details Clinical Impression: Contact dermatitis, Poison daphnie Primary Care Provider: Aleksandr Saez ED Provider: Aidan Cohen Home Meds and New Rx's Prescriptions: New prednisone 20 mg tablet 20 mg PO DAILY Qty: 42 0RF Rx Instructions: Take 3 tablets daily for 7 days, followed by 2 tablets daily for 7 days, followed by 1 tablet daily for 7 days. hydroxyzine HCl 25 mg tablet 25 mg PO TID PRNQty: 60 0RF No Action buprenorphine-naloxone [Suboxone] 2-0.5 mg film 1 film sublingual DAILY Patient Comments: PLACE ONE FILM UNDER THE TONGUE EVERY MORNING FOR 28 DAYS Discharge Instructions Instructions: Poison daphnie Additional Instructions: At this time you have evidence of a notable poison daphnie or poison oak skin reaction. Because of this we require a prolonged course of steroids to help minimize it. Please take the steroids as directed. Please be mindful that it can cause some mild mood swings. Please take the medication with food. Please apply the cream only to the most severe areas. Please take the hydroxyzine/Atarax as needed for itchiness. If you notice any worsening of your symptoms, or any new symptoms such as vomiting, diarrhea, fever, chills, shortness of breath, chest pain, numbness, weakness, or fainting , please return immediately to the emergency department for reevaluation. Please follow up with your primary care provider as soon as possible for reassessment and reevaluation. As always, it was a pleasure participating in your medical care today. Referrals: Aleksandr Saez [Primary Care Provider] - [facility] General Date/Time Provider Initiated Documentation: 06/04/24 07:28 . HPI Narrative: 33-year-old male with past medical history of Suboxone use, previous OD leading to compartment syndrome in his left forearm, who is otherwise now clean, presents today for evaluation of rash on his bilateral arms and right neck. Patient states he has been working outside, and 3 days ago was in some bushes and shortly thereafter discovered a allergic reaction on his arms and neck. He has been applying 0.1% triamcinolone cream, with no improvement. He states it is notably itchy. He denies any fever or chills. He denies any rash on his chest abdomen or pelvis or legs. He has no other complaints at this time. No other modifying factors. Related Data Home Medications ?Medication ?Instructions ?Recorded ?Confirmed buprenorphine 2 mg-naloxone 0.5 mg 1 film sublingual DAILY 06/04/24 06/04/24 sublingual film (Suboxone) hydroxyzine HCl 25 mg tablet 25 mg PO TID PRN #60 tabs 06/04/24 prednisone 20 mg tablet 20 mg PO DAILY #42 tabs 06/04/24 Previous Rx's ?Medication ?Instructions ?Recorded hydroxyzine HCl 25 mg tablet 25 mg PO TID PRN #60 tabs 06/04/24 prednisone 20 mg tablet 20 mg PO DAILY #42 tabs 06/04/24 Allergies Allergy/AdvReac Type Severity Reaction Status Date / Time No Known Allergies Allergy Unverified 06/04/24 07:27 General Stated Complaint: RashLesion DEMETRIA: 3 Review of Systems All systems reviewed & are unremarkable except as noted in HPI and below Exam Narrative Exam Narrative: 1.Const: Well-nourished, Well-developed, appearing stated age 2.Eyes: PERRL, no conjunctival injection, and symmetrical lids. 3.ENT: Atraumatic external nose and ears. Moist MM. Neck: Symmetric, trachea midline, No thyromegaly. 4.CVS: +S1/S2, Peripheral pulses 2+ and equal in all extremities. Brisk capillary refill in all extremities. 5.RESP: Unlabored respiratory effort. Clear to auscultation bilaterally. No wheezes rales or rhonchi 6.GI: Soft, Nontender/Nondistended, No hepatosplenomegaly. No guarding or rebound. 7.MSK: Normocephalic/Atraumatic, Extremities w/o deformity or ttp No cyanosis or clubbing, Normal movement of all extremities 8.Skin: Patient demonstrates contact dermatitis like reaction with diffuse wheals, mild serous exudate, and mild erythema with some crusting over the forearms bilaterally and then a few linear lesions over the right aspect of his neck. No circumferential cellulitis. Negative Nikolsky sign. No large vesicles or bulla. No palpable purpura. No oral lesions. No mucosal lesions. No evidence of severe cellulitis. No evidence of vaccine preventable rash. 9.Neuro: nondestructive tester II-XII grossly intact. Sensation grossly intact, no focal neurologic deficits. 10.Psych: (AAO) x3. Appropriate mood and affect Course Vital Signs Vital signs: Vital Signs Temperature 37.1 C 06/04/24 07:25 Pulse 80 06/04/24 07:25 Respiratory Rate 18 06/04/24 07:25 Blood Pressure 155/99 H 06/04/24 07:25 Pulse Oximetry 99 06/04/24 07:25 Temperature 37.1 C 06/04/24 07:25 Temperature Source Temporal Artery Scan 06/04/24 07:25 Pulse 80 06/04/24 07:25 Respiratory Rate 18 06/04/24 07:25 Respiratory Effort Normal, Non-Labored 06/04/24 07:28 Blood Pressure 155/99 H 06/04/24 07:25 Blood Pressure Position Sitting 06/04/24 07:25 Pulse Oximetry 99 06/04/24 07:25 Oxygen Delivery Method Room Air 06/04/24 07:25 Oxygen Flow Rate 0 06/04/24 07:25 Pain Level 5 06/04/24 07:25 Medical Decision Making 33-year-old male with past medical history of Suboxone use, previous OD leading to compartment syndrome in his left forearm, who is otherwise now clean, presents today for evaluation of rash on his bilateral arms and right neck. Patient states he has been working outside, and 3 days ago was in some [place] and shortly thereafter discovered a allergic reaction on his arms and neck. He has been applying 0.1% triamcinolone cream, with no improvement. He states it is notably itchy. He denies any fever or chills. He denies any rash on his chest abdomen or pelvis or legs. He has no other complaints at this time. No other modifying factors. Exam demonstrates rash over the patient's forearms and right neck clinically consistent with a contact dermatitis likely secondary to an oil-based emollient from potentially poison oak poison sumac or more likely poison daphnie. The triamcinolone has been ineffective for the management of his treatments, which is no surprise considering the diffuseness and severity of the rash. We will elect for an oral steroid treatment component at this time. Will do an extended course secondary to the nature of the oil-based reaction. Will give a dose of IM Solu-Medrol here to start, give Atarax for home use. Recommend continue triamcinolone cream application to the most affected areas on the forearms. Discussed red flags which to return. I have extensively reviewed the treatment plan and discharge instructions with the patient. I have addressed all patient concerns at this time. The patient was made aware of what symptoms to monitor for that would warrant a return to the emergency department. Discussed the plan with the patient, they demonstrate verbal understanding and agreement with our assessment and plan at this time. The documentation in this chart was dictated using [employer] dictation software. Please excuse any dictation errors. Quality:SDOH Health Related Social Needs: No Data to Display PFSH All Active Problems Poison daphnie (Acute) Contact dermatitis (Acute) Social History Smoking/Tobacco Use Status: Current every day Tobacco Type: cigarettes Years smoked: 15 Smoking risk assessment performed?: Yes Alcohol Intake: never Drug use: Current Sobriety Substance use type: former substance user Housing: house Do you feel safe at home: No Do you feel safe in your relationship?: No
[2024-06-04] MEDS: methylPREDNISolone SUCC 125 MG VIAL IM (08:30)
[2024-06-04 08:32] VITALS: PULSE 89; RESP 18; O2SAT 98
== END 2024-06-04 08:32 | disposition home or self-care (01) ==
LOC: ER 08:22
PROVIDERS: Emergency Provider Student in an Organized Health Care Education/Training Program; PCP Physician Assistant
DX: L23.7 Allergic contact dermatitis due to plants, except food (principal)
CPT/HCPCS: 96372; 99284; J2919